=== PATIENT | male | born 1960 | race Caucasian/White ===

== ENCOUNTER 2017-07-05 20:28 | Emergency (ER) | payer MEDICARE ==
[~2017-07-05] VITALS: Ht 193 cm; Wt 106.6 kg
[~2017-07-05 20:28] MED LIST: 5-HTP100 MG PO; ACYCLOVIR SODI500 MG; ADULT LOW DOSE81 MG; ALPRAZOLAM1 MG PO; AMLODIPINE BESY10 MG PO; ASPIRIN EC81 MG PO; ATIVAN0.5 MG PO; CEFDINIR300 MG PO; CLINDAMYCIN HC150 MG PO; CLONAZEPAM0.5 MG PO; CLONAZEPAM1 MG PO; CLONIDINE HCL0.2 MG PO; CYCLOBENZAPRINE10 MG PO; DILAUDID4 MG; DILTIAZEM 24HR120 M1 PO; DOXYCYCLINE HY100 MG PO; DRONABINOL10 MG PO; FLEXERIL10 MG PO; FLONASE2 SPRAY; FUROSEMIDE20 MG PO; GUAIATUSSIN AC L5 ML PO; HAWTHORN BERRY500 MG PO; IBUPROFEN800 MG PO; IMDUR30 MG PO; LEVAQUIN500 MG PO; LEVOFLOXACIN500 MG PO; LORAZEPAM1 MG PO; MARINOL10 MG PO; MELATONIN10 M2 PO; METOPROLOL SUC200 MG PO; MSM1000 MG PO; MUCINEX DM ER1 EAC1 PO; MULTI VITAMIN1 EACH PO; NEURONTIN600 MG PO; NITROSTAT0.4 MG SL; NORVASC5 MG; OMEPRAZOLE20 MG; OSTEO BI-FLEX1 EAC2 PO; OXYCODONE HCL10 M1 PO; OXYCODONE HCL10 MG PO; OXYCODONE HCL5 MG PO; OXYCONTIN20 MG PO; OXYCONTIN30 MG PO; PERCOCET 5-3251 EACH PO; PERCOCET 7.5-31 EACH PO; PRAVACHOL40 MG PO; PRAVASTATIN SOD40 MG PO; PREDNISONE10 MG PO; PROMETHAZINE HC25 M1 PO; PROTONIX40 MG PO; PROVENTIL HFA6.7 GM INH; SULFAMETHOXAZO1 EAC1 PO; TESSALON PERLE100 MG PO; VALACYCLOVIR500 MG PO; VITAMIN D3400 UNIT PO; VITAMIN D5000 UNIT PO; ZITHROMAX250 MG PO; ZOFRAN ODT8 MG PO
[2017-07-05] MEDS ORDERED: KEFLEX500 MG PO (22:23)
[2017-07-05] MEDS ORDERED: BACTRIM DS TAB1 EACH PO (22:23)
== END 2017-07-05 22:40 | disposition home or self-care (01) ==
LOC: ED 20:28
DX: L03.115 Cellulitis of right lower limb (principal); I10 Essential (primary) hypertension; E78.00 Pure hypercholesterolemia, unspecified; Z86.73 Personal history of transient ischemic attack (TIA), and cerebral infarction without residual deficits; I25.10 Atherosclerotic heart disease of native coronary artery without angina pectoris; Z95.0 Presence of cardiac pacemaker; Z88.0 Allergy status to penicillin; Z88.5 Allergy status to narcotic agent; Z88.1 Allergy status to other antibiotic agents; Z98.890 Other specified postprocedural states; Z79.82 Long term (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; Z79.899 Other long term (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
CPT/HCPCS: 73630; 99283

== ENCOUNTER 2017-09-15 14:19 | Emergency (ER) | payer OTHER, MEDICARE ==
[~2017-09-15] VITALS: Ht 193 cm; Wt 106.6 kg
[~2017-09-15 14:19] MED LIST changes: +BACTRIM DS TAB1 EACH PO; +KEFLEX500 MG PO
[2017-09-15] MEDS ORDERED: NORCO 5-325 TA1 EACH PO (15:11)
== END 2017-09-15 15:47 | disposition home or self-care (01) ==
LOC: ED 14:19
DX: S20.212A Contusion of left front wall of thorax, initial encounter (principal); S80.12XA Contusion of left lower leg, initial encounter; I10 Essential (primary) hypertension; E78.00 Pure hypercholesterolemia, unspecified; I25.10 Atherosclerotic heart disease of native coronary artery without angina pectoris; Z86.73 Personal history of transient ischemic attack (TIA), and cerebral infarction without residual deficits; Z95.0 Presence of cardiac pacemaker; Z90.49 Acquired absence of other specified parts of digestive tract; Z88.0 Allergy status to penicillin; Z88.5 Allergy status to narcotic agent; Z88.8 Allergy status to other drugs, medicaments and biological substances; Z79.899 Other long term (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; Z79.82 Long term (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; V89.2XXA Person injured in unspecified motor-vehicle accident, traffic, initial encounter
CPT/HCPCS: 71101; 73590; 73630; 99283

== ENCOUNTER 2017-11-11 17:36 | Emergency (ER) | payer MEDICARE ==
[~2017-11-11] VITALS: Ht 193 cm; Wt 98.9 kg
[~2017-11-11 17:36] MED LIST changes: +NORCO 5-325 TA1 EACH PO
== END 2017-11-11 20:59 | disposition home or self-care (01) ==
LOC: ED 17:36
DX: R10.11 Right upper quadrant pain (principal); R19.7 Diarrhea, unspecified; I10 Essential (primary) hypertension; Z87.891 Personal history of nicotine dependence; Z88.0 Allergy status to penicillin; Z88.5 Allergy status to narcotic agent; Z88.1 Allergy status to other antibiotic agents; Z79.899 Other long term (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; Z79.82 Long term (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
CPT/HCPCS: 74177; 80053; 81001; 83690; 85025; 99284; J7030; Q9967

== ENCOUNTER 2017-11-22 07:45 | Emergency (ER) | payer MEDICARE ==
[~2017-11-22] VITALS: Ht 193 cm; Wt 98.9 kg
[2017-11-22] MEDS ORDERED: PROVENTIL HFA6.7 GM INH (11:57)
[2017-11-22] MEDS ORDERED: NAPROSYN500 MG PO (11:57)
--- NOTE | 2017-11-23 06:36 | EKG ---
[facility] [address] [facility] [place], [place] [address] Signed Atrial-paced rhythm with prolonged AV conduction Abnormal ECG When compared with ECG of 24-APR-2017 14:37, No significant change was found Confirmed by IKER CABEZAS MD ([id number]) on 11/23/2017 6:36:39 AM Electronically Signed By: IKER CABEZAS MD 11/23/17 0636 PATIENT NAME: PINA GAY SARAH Electrocardiogram DATE OF : 58 PHYSICIAN: IKER CABEZAS MD REPORT #: [id number] REPORT IS CONFIDENTIAL AND NOT TO BE RELEASED WITHOUT AUTHORIZATION
--- NOTE | 2017-11-23 06:37 | EKG ---
[facility] [address] [place], [place] [address] Signed Atrial-paced rhythm with prolonged AV conduction Abnormal ECG When compared with ECG of 22-NOV-2017 08:27, (Unconfirmed) No significant change was found Confirmed by IKER CABEZAS MD ([id number]) on 11/23/2017 6:36:58 AM Electronically Signed By: IKER CABEZAS MD 11/23/17 0637 PATIENT NAME: PINA GAY SARAH Electrocardiogram DATE OF : 58 PHYSICIAN: IKER CABEZAS MD REPORT #: [id number] REPORT IS CONFIDENTIAL AND NOT TO BE RELEASED WITHOUT AUTHORIZATION
== END 2017-11-22 12:45 | disposition home or self-care (01) ==
LOC: ED 07:45
DX: J20.9 Acute bronchitis, unspecified (principal); R07.9 Chest pain, unspecified; I10 Essential (primary) hypertension; Z87.891 Personal history of nicotine dependence; Z88.0 Allergy status to penicillin; Z88.5 Allergy status to narcotic agent; Z88.1 Allergy status to other antibiotic agents; Z88.8 Allergy status to other drugs, medicaments and biological substances; Z79.82 Long term (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; Z79.899 Other long term (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
CPT/HCPCS: 71045; 80053; 81001; 83690; 84484; 85025; 85379; 93005; 93010; 94640; 96374; 99284; J1885

== ENCOUNTER 2017-12-03 09:31 | Emergency (ER) | payer MEDICARE ==
[~2017-12-03] VITALS: Ht 193 cm; Wt 102.1 kg
[~2017-12-03 09:31] MED LIST changes: +NAPROSYN500 MG PO
[2017-12-03] MEDS ORDERED: ZITHROMAX250 MG PO (09:43)
[2017-12-03] MEDS ORDERED: NORVASC5 MG PO (09:47)
== END 2017-12-03 10:30 | disposition home or self-care (01) ==
LOC: ED 09:31
DX: E16.2 Hypoglycemia, unspecified (principal); I10 Essential (primary) hypertension; E78.00 Pure hypercholesterolemia, unspecified; Z95.0 Presence of cardiac pacemaker; Z98.890 Other specified postprocedural states; Z88.0 Allergy status to penicillin; Z88.5 Allergy status to narcotic agent; Z88.1 Allergy status to other antibiotic agents; Z88.8 Allergy status to other drugs, medicaments and biological substances; Z79.82 Long term (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; Z79.899 Other long term (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
CPT/HCPCS: 99283

== ENCOUNTER 2017-12-14 12:32 | Emergency (ER) | payer MEDICARE ==
[~2017-12-14] VITALS: Ht 193 cm; Wt 102.1 kg
[~2017-12-14 12:32] MED LIST changes: +NORVASC5 MG PO
== END 2017-12-14 13:02 | disposition home or self-care (01) ==
LOC: ED 12:32
DX: J06.9 Acute upper respiratory infection, unspecified (principal); R23.8 Other skin changes; I10 Essential (primary) hypertension; E78.00 Pure hypercholesterolemia, unspecified; Z95.1 Presence of aortocoronary bypass graft; Z90.49 Acquired absence of other specified parts of digestive tract; Z88.0 Allergy status to penicillin; Z88.5 Allergy status to narcotic agent; Z88.8 Allergy status to other drugs, medicaments and biological substances; Z88.1 Allergy status to other antibiotic agents; Z79.899 Other long term (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; Z79.82 Long term (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
CPT/HCPCS: 99282

== ENCOUNTER 2019-03-31 22:46 | Emergency (ER) | payer MEDICARE ==
[~2019-03-31] VITALS: Ht 193 cm; Wt 108.9 kg
--- OUTSIDE RECORDS SUMMARY | 2019-03-31 22:48 | XMS ---
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 Finish Remover Events No recent Security Events currently on file CRITERIA MET - Group Notification - [facility] - 3 Facilities in 90 Days - PDMP - [facility] - 2 Visits in 30 Days CARE PROVIDERS SARAH PEOPLES Internal Medicine Current PHONE: Unknown DR SARAH PEOPLES Primary Care Current PHONE: [phone] JAYLENE RIVAS Primary Care [facility] PHONE: Unknown Darren Wilkins - Case or Linoleum Installer Current [facility] PHONE: [phone] Joseline has no Care Guidelines for this patient. Rhea VISIT COUNT (12 MO.) 5 [address] JUDE [facility]gar TOTAL 10 NOTE: Visits indicate total known visits. ED/UCC VISIT TRACKING (12 MO.) 03/31/2019 22:46 [facility] [place] TYPE: Emergency COMPLAINT: - ABD PAIN 03/24/2019 19:20 [facility] [place] TYPE: Emergency DIAGNOSES: - CHEST PAIN - Other chest pain 01/02/2019 18:[address] [facility] [place]ba [place] TYPE: Emergency DIAGNOSES: - Chest pain, unspecified - chest pain 12/19/2018 18:13 [facility] [place] TYPE: Emergency DIAGNOSES: - Intestinal malabsorption, unspecified - Stomach pain; vomitting - Diarrhea, unspecified - Right upper quadrant pain 12/01/2018 22:07 [facility] [place] TYPE: Emergency DIAGNOSES: - NAUSEA;BLEEDING - Diarrhea, unspecified - Nausea [facility]2018 [facility] [place] [facility] DIAGNOSES: - cp - cp/ curently wearing a heart monitor - Chest Pain - Chest pain, unspecified 07/11/2018 13:53 [facility] [place] TYPE: Emergency COMPLAINT: - LOW BACK PAIN HEADACHE 06/21/2018 10:39 [facility] Sandie [place] TYPE: Emergency DIAGNOSES: - Chest pain, unspecified - chest pain 06/20/2018 [facility] [place] [facility] DIAGNOSES: - Chest pain, unspecified - Chest Pain - CP/SOB 04/06/2018 22:13 [facility] [place] TYPE: Emergency COMPLAINT: - LOWER LEG CONCERNS DIAGNOSES: - Localized edema - Personal history of other venous thrombosis and embolism INPATIENT VISIT TRACKING (12 MO.) No inpatient visits to display in this time frame [email or web address]
[2019-03-31] MEDS ORDERED: ATORVASTATIN CA20 MG PO (22:57)
[2019-03-31] MEDS ORDERED: ONDANSETRON HCL4 MG PO (22:58)
[2019-03-31] MEDS ORDERED: DICYCLOMINE HCL20 MG PO (22:58)
[2019-03-31] MEDS ORDERED: DIPHENOXYLATE-1 EACH PO (22:58)
[2019-04-01] MEDS ORDERED: PERCOCET 5-3251 EACH PO (01:28)
[2019-04-01] MEDS ORDERED: FLOMAX0.4 MG PO (01:29)
== END 2019-04-01 02:14 | disposition home or self-care (01) ==
LOC: ED 22:46
DX: N13.2 Hydronephrosis with renal and ureteral calculous obstruction (principal); I10 Essential (primary) hypertension; E78.00 Pure hypercholesterolemia, unspecified; Z87.891 Personal history of nicotine dependence; Z95.0 Presence of cardiac pacemaker; Z90.49 Acquired absence of other specified parts of digestive tract; Z88.0 Allergy status to penicillin; Z88.5 Allergy status to narcotic agent; Z88.6 Allergy status to analgesic agent; Z88.8 Allergy status to other drugs, medicaments and biological substances; Z79.82 Long term (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; Z79.899 Other long term (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
CPT/HCPCS: 74176; 80053; 81001; 83690; 85025; 96374; 96375; 96376; 99284-25; J1170; J1885; J2405

== ENCOUNTER 2019-07-21 08:17 | Emergency (ER) | payer MEDICARE ==
[~2019-07-21] VITALS: Ht 193 cm; Wt 101.6 kg
[~2019-07-21 08:17] MED LIST changes: +ATORVASTATIN CA20 MG PO; +DICYCLOMINE HCL20 MG PO; +DILAUDID2 MG PO; +DIPHENOXYLATE-1 EACH PO; +FLOMAX0.4 MG PO; +LIPITOR40 MG PO; +ONDANSETRON HCL4 MG PO; +TOPROL XL100 MG PO
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
== END 2019-07-21 09:40 | disposition home or self-care (01) ==
LOC: ED 08:17
DX: S43.401A Unspecified sprain of right shoulder joint, initial encounter (principal); I10 Essential (primary) hypertension; Z87.891 Personal history of nicotine dependence; Z95.0 Presence of cardiac pacemaker; Z88.0 Allergy status to penicillin; Z88.1 Allergy status to other antibiotic agents; Z88.5 Allergy status to narcotic agent; Z88.6 Allergy status to analgesic agent; Z79.82 Long term (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; Z79.899 Other long term (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; Y04.0XXA Assault by unarmed brawl or fight, initial encounter
CPT/HCPCS: 73030; 99283

== ENCOUNTER 2019-09-04 15:20 | Emergency (ER) | payer MEDICARE ==
[~2019-09-04] VITALS: Ht 193 cm; Wt 99.8 kg
--- OUTSIDE RECORDS SUMMARY | ~2019-09-04 | XMS | Clinical Summary ---
Demographics + + + | Address | [address] | | | [place] [address] | + + + | Home Phone [...] Team Providers + +------+ + | Care Label Machine Operator Name | Role | Phone | + +------+ + | Kikr French MD | PCP | Unavailable | + +------+ + Allergies + + [...] | tablet | Daily. | | | 8/20 | | e | | | | | | 12 | | | + + + +---------+------+------+-------+ | Ascorbic Acid | Take 1,000 mg by | | 0 | 04/1 | | Activ | | (VITAMIN C) 1000 MG | mouth Daily. | | | 8/20 | | e | | tablet | | | | 12 | | | + + + +---------+------+------+-------+ | Kilmichael-3 Fatty | CAPS, one capsule by | | 0 | 04/1 | | Activ | | Acids (SALMON | mouth daily twice | | | 8/20 | | e | | OIL-1000 PO) | daily | | | 12 | | | + + + +---------+------+------+-------+ | diphenhydrAMINE | Take 25 mg by mouth | | 0 | 04/1 | | Activ | | (BENADRYL) 25 MG | as needed. | | | 8/20 | | e | | capsule | | | | 12 | | | + + + +---------+------+------+-------+ | UNCODED MEDICATION | Diagnosis: | 1 [...] | | + + + +---------+------+------+-------+ | ONE TOUCH DELICA | Check glucose as | 100 | 3 | 09/2 | | Activ | | LANCETS | needed for | each | | 6/20 | | e | | MISCIndications: | hypoglycemia | | | 13 | | | | Hypoglycemia | | | | | | | + + + +---------+------+------+-------+ | Misc Natural | Take by mouth. | | 0 | | | Activ | | Products (OSTEO | Takes 2 tablets in | | | | | e | | BI-FLEX/5-LOXIN | the morning and 2 | | | | | | | ADVANCED PO) | tablets at night | | | | | | + + + +---------+------+------+-------+ | rOPINIrole | Take 1 tablet by | | 0 | 07/0 | | Activ | | (REQUIP) 1 mg tablet | mouth nightly. | | | 3/20 | | e | | | | | | 15 | | | + + + +---------+------+------+-------+ | Multiple | Take 1 tablet by | | 0 | | | Activ | | Vitamins-Minerals | mouth Daily. | | | | | e | | (CENTRUM SILVER PO) | | | | | | | + + + +---------+------+------+-------+ | UNABLE TO FIND | Take 1 tablet by | | 0 | | | Activ | | | mouth Daily. | | | | | e | | | MARINE-D3 | | | | | | + + + +---------+------+------+-------+ | | Take 1 tablet by | | 0 | | | Activ | | diphenoxylate-atropi | mouth 4 times daily | | | | | e | | ne (LOMOTIL) | as needed for | | | | | | | 2.5-0.025 mg per | Diarrhea. | | | | | | | tablet | | | | | | | + + + +---------+------+------+-------+ | dicyclomine | Take 1 tablet by | 30 | 1 | 02/0 | 02/0 | Activ | | (BENTYL) 20 MG | mouth 3 times daily | tablet | | 4/20 | 4/20 | e | | tablet | as needed. Before | | | 19 | 20 | | | | meals | | | | | | + + + +---------+------+------+-------+ | ondansetron | Take 4 mg by mouth | | 0 | 01/1 | | Activ | | (ZOFRAN ODT) 4 mg | every 8 hours as | | | 1/20 | | e | | disintegrating | needed for Nausea. | | | 19 | | | | tablet | | | | | | | + + + +---------+------+------+-------+ | Glucose Blood | Test up to 1 times a | | 0 | 03/0 | | Activ | | (BLOOD GLUCOSE TEST | day as needed ( One | | | /20 | | e | | STRIPS) STRP | touch ) | | | 18 | | | + + + +---------+------+------+-------+ | amLODIPine | Take 1 tablet by | 30 | 11 | 04/0 | | Activ | | (NORVASC) 5 mg | mouth Daily. | tablet | | 2/20 | | e | | tablet | | | | 19 | | | + + + +---------+------+------+-------+ | HYDROmorphone | Take 1 tablet by | | 0 | 07/ | | Activ | | (DILAUDID) 4 MG | mouth every 4 hours. | | | /20 | | e | | tablet | | | | 19 | | | + + + +---------+------+------+-------+ | atorvaSTATin | Take 1 tablet by | 30 | 5 | / | | Activ | | (LIPITOR) 40 mg | mouth nightly. | tablet | | /20 | | e | | tabletIndications: | | | | 19 | | | | Coronary artery | | | | | | | | disease involving | | | | | | | | holy cross coronary | | | | | | | | artery of holy cross | | | | | | | | heart without angina | | | | | | | | pectoris, | | | | | | | | Hyperlipidemia, | | | | | | | | mixed | | | | | | | + + + +---------+------+------+-------+ | metoprolol | Take 1.5 tablets by | 45 | 5 | 07/1 | | Activ | | succinate | mouth Daily. | tablet | | 6/20 | | e | | (TOPROL-XL) 100 mg | | | | 19 | | | | ER tablet | | | | | | | + + + +---------+------+------+-------+ | aspirin 81 MG EC | Take 81 mg by mouth | | 0 | | | Activ | | tablet | Daily. | | | | | e | + + + +---------+------+------+-------+ | hyoscyamine | Place 1 tablet under | 60 | 1 | 09/0 | | Activ | | (LEVSIN) 0.125 mg SL | the tongue every 4 | tablet | | 9/20 | | e | | tablet | hours as needed for | | | 19 | | | | | Cramping, Diarrhea | | | | | | | | or GI Spasms. | | | | | | + + + +---------+------+------+-------+ | nitroglycerin | PLACE ONE TABLET | [...] | + + + +---------+------+------+-------+ | valACYclovir | TAKE ONE TABLET BY | 180 | 0 | 10/0 | | Activ | | (VALTREX) 1 g tablet | MOUTH TWICE A DAY | tablet | | 9/20 | | e | | | | | | 19 | | | + + + +---------+------+------+-------+ | clonazePAM | Take 1 tablet by | 90 | 0 | 10/1 | | Activ | | (KLONOPIN) 1 mg | mouth 3 times daily | tablet | | 0/20 | | e | | tablet | as needed for | | | 19 | | | | | Anxiety. | | | | | | + + + +---------+------+------+-------+ | NITROSTAT 0.4 MG | place 1 tablet under | 100 | 3 | 11/2 | 10/0 | Disco | | SL tablet | the tongue if | tablet | | 2/20 | 9/20 | ntinu | | | needed for chest | | | 16 | 19 | ed | | | pain may repeat | | | | | | | | every 5 minutes UP | | | | | | | | TO 3 DOSES; IF NO | | | | | | | | RELIEF AFTER 3RD | | | | | | | | DOSE, CALL 911 | | | | | | + + + +---------+------+------+-------+ | valACYclovir | Take 1,000 mg by | | 1 | 01/0 | 10/0 | Disco | | (VALTREX) 1 g tablet | mouth 2 times daily. | | | 07/11 | 20 | ntinu | | | | | | 18 | 19 | ed | + + + +---------+------+------+-------+ | sertraline | Take 100 mg by mouth | | 0 | 10/0 | 10/0 | Expir | | (ZOLOFT) 50 mg | Daily. | | | 20 | 20 | ed | | tablet | | | | 18 | 19 | | + + + +---------+------+------+-------+ | clonazePAM | Take 1 tablet by | 12 | 0 | 07/1 | 10/1 | Disco | | (KLONOPIN) 1 mg | mouth 3 times daily | tablet | | 01/11 | 020 | ntinu | | tablet | as needed for | | | 19 | 19 | ed | | | Anxiety. | | | | | | + + + +---------+------+------+-------+ Active Problems + + + | Problem | Noted Date | + + + | Left ureteral calculus | 04/10/2019 | + + + | Irritable bowel syndrome | 01/17/2019 | + + + | Obesity | 01/17/2019 | + + + | Abnormal serum level of lipase | 12/22/2018 | + + + | Cannabis abuse | 12/14/2018 | + + + | Neuralgia | 11/25/2018 | + + + | Beta Blockers - Daily Use | 12/24/2017 | + + + | Depression with anxiety | 12/24/2017 | + + + | H/O Lumbar Fusion - "6 levels" per pt | 12/24/2017 | + + + + + | Overview: Lower back injury ([facility] 1980 1984 | + + + + + | Diarrhea | 12/22/2017 | + + + | Weight loss | 12/22/2017 | + + + | Anxiety about health | 03/15/2017 | + + + | Pacemaker reprogramming/check DO NOT DELETE | 09/19/2015 | + + + | Blood glucose elevated | 11/26/2014 | + + + | Cannabis abuse, daily use | 07/25/2014 | + + + | Decreased potassium in the blood | 02/27/2014 | + + + | Coronary artery disease involving holy cross coronary artery of | 12/21/2013 | | holy cross heart without angina pectoris | | + [...] a TR | | hemostatic band, by Sydni Singletary, MDStress test on 07/21/2018 | | shows regadenoson EKG is negative, normal Regadenoson sestamibi | | myocardial perfusion study, normal left ventricular size, wall | | thickness and motion, preserved left ventricular systolic | | function, LVEF by gated SPECT is 64%, by Sydni Singletary | | .Echocardiogram 06/16/16, shows normal left ventricular size, | [...] with a TR hemostatic band, by Sydni | | MD Gemini. Normal exercise sestamibi [...] attenuation cannot | | completely be ruled out.[facility] 12/25/13, shows non critical coronary | | [...] | | CT Angiogram chest w/constrast 05/26/14 [facility] | + + + + + | [...] [facility] at [facility] on 01/30/2013. Patient had spontaneous PVCs from [...] back in 3 days to | | [place] for an attempt of ablation under general [...] update | + + + + + | CENTRAL SLEEP APNEA CONDS CLASSIFIED ELSEWHERE | 12/15/2010 | + + + + + | Overview: ICD-10 Record update | + + +---------+ + | Syncope | 10/09/2010 | +---------+ + + + | Overview: Episode of presyncope 05/28/10 | + + + + + | ORGANIC INSOMNIA UNSPECIFIED | 10/09/2010 | + + + + + | Overview: ICD-10 Record update | + + + + + | [...] IMPLANTED GENERATOR | | Medtronic DDD [id number] 06/14/09 RV LEAD Medtronic Active | | Bipolar CapSureFix 4076 [id number] 06/14/09 A LEAD Medtronic | | Active Bipolar CapSurFix 4076 [id number] 06/14/09 | + + + +---+ | Hyperlipidemia, mixed | | + +---+ | Bipolar disorder | | + +---+ | Mixed anxiety depressive disorder | | + +---+ + + | Last Assessment & Plan: Has history of anxiety/depression, | | not on antidepressive currently. May benefit from SSRI. | + + + +---+ | Smoker | | + +---+ | Hypertension | | + +---+ + + | Last Assessment & Plan: On amlodipine, clonidine, and | | metoprolol. Continue home meds. | + + + +---+ | NONDEPENDENT OPIOID ABUSE IN REMISSION | | + +---+ | Fibromyalgia | | + +---+ | Low back pain | | + +---+ | CHRONIC PAIN SYNDROME | | + +---+ | Ulcerative colitis | | + +---+ | Sinoatrial node dysfunction (HCC) with symptomatic bradycardia | | + +---+ + + | Overview: Echocardiogram on 05/25/09 revealed a normal left | | ventricular size and systolic function, LVEF 65 to 70%.Kera[employer]STtronic | | DDD permanent pacemaker implantation on [...] and | | PVCs were noted, by Sydni Singletary MD | + + + +---+ [...] Date | + + + + | Dizziness, nonspecific | 03/19/20 | | | | 15 | 5 | + + + + | Chest pain. No ACS. | | | | | | 8 | + + + + + + | Overview: Echocardiogram 03/19/15, [...] | Heart Cath, 02/29/2012, LVEF is 65%, [facility] Myocardial Gated Stress Test, 05/25/2009, EF 53 | | % during rest and 52% during stress. [facility], | | [place], [place].Persantine Sestamibi Stress Test, 06/14/2008, LVEF is | | 60%, [facility] 12/25/13, shows noncritical | | coronary artery [...] Plan: Nonobstructive CAD noted | | on [facility] from 2013, no EKG changes, and negative [...] | +--------+ + + + + | 09/04/ | Telephone | Gastroenterology | Emmanuel Daniel MD | Other | | 2018 | | | | | +--------+ + + + + | 08/31/ | Refill | Family Medicine | Kirk French | Medication Refill | | 2018 | | Shanique Guidry MD | | +--------+ + + + + | 08/30/ | Refill | Family Medicine | Kirk French | Medication Refill | | 2018 | | Shanique Guidry MD | | +--------+ + + + + | 07/31/ | Telephone | Cardiology | Shanique Vega | 2018 | | | [place] | | +--------+ + + + + | 07/31/ | Telephone | Gastroenterology | Emmanuel Daniel MD | Medication Refill | 2018 | | | | | +--------+ + + + + | 07/27/ | Telephone | Gastroenterology | Emmanuel Daniel MD | Medication | | 2018 | | | | Recommendations | +--------+ + + + + | 07/13/ | Telephone | Family Medicine | Kirk French | Referral Question | | 2018 | | | MD Brea | | +--------+ + + + + | 06/22/ | Telephone | Gastroenterology | Emmanuel Daniel MD | Lab Order | | 2018 | | | | | +--------+ + + + + | 06/19/ | Orders Only | | Fabrice Hylton, | Abnormal weight | | 2018 | | | MD | loss; Anxiety | | | | | | disorder; Chronic | | | | | | pain syndrome; | | | | | | Obesity; Neuralgia | | | | | | and neuritis, | | | | | | unspecified; | | | | | | Cannabis abuse, | | | | | | uncomplicated; Major | | | | | | depressive | | | | | | disorder, single | | | | | | episode | +--------+ + + + + | 06/06/ | Office | Cardiology | Silvia, | Essential | | 2019 | Visit | | [place] | hypertension | | | | | | (Primary Dx); | | | | | | Sinoatrial [...] involving | | | | | | holy cross coronary | | | | | | artery of holy cross | | | | | | heart [...] | | | | | mixed | +--------+ + + + + | 06/06/ | Telephone | Cardiology | Silvia, | Other (Cardiac | | 2018 | | | [place] | Clearance) | +--------+ + + + + from Last 3 Months Immunizations + + + + | Name | Dates Previously Given | Next Due | + + + [...] + | Cancer | Father | | colon,prostate | + + +------+ + | Heart [...] + + | Mother | | | [place] | | | | (Age | | [...] + +---------+ + | Alcohol Use | Drinks/We | oz/Week | Comments | | | ek | | | + + +---------+ + | Not Currently | 7 Shots | 4.2 | Pt states he started drinking again - Hard | | | of | | alchol | | | liquor | | | + + +---------+ + [...] Filed Vital Signs + + + + | Vital Sign | Reading | Time Taken | + + + + | Blood Pressure | 132/90 | 06/06/2019 1425 PDT | + + + + | Pulse | 80 | 06/06/2019 1425 PDT | + + + + | Temperature | 37.4 C (99.3 F) | 06/02/2019 1840 PDT | + + + + | Respiratory Rate | 16 | 06/06/20191424 PDT | + + + + | Oxygen Saturation | 98% | 06/02/20192020 PDT | + + + + | Inhaled Oxygen | - | - | | Concentration | | | + + + + | Weight | 102.6 kg (226 lb 3.1 | 06/06/20191424 PDT | | | oz) | | + + + + | Height | 193 cm (6' 4") | 06/06/20191424 PDT | + + + + | Body Mass Index | 27.53 | 06/06/2019 1425 PDT | + + + + Plan of Treatment +--------+---------+ + + + | Date | Type | Specialty | Care Team | Description | +--------+---------+ + + + | 11/09/ | Office | Cardiology | Silvia, | | | 2018 | Visit | | [place] [address] | | | | | | [place], | | | | | | [place] [address] | | | | | | [phone] | | | | | | | | +--------+---------+ + + + + + + + + | Health Maintenance | Due Date | Last Done | Comments | + + + + + | Hepatitis C | | | | | Screening | 9 | | | + + + + + | Vaccine: | | | | | Pneumococcal 19-64 | 8 | | | | (PPSV23 only) Medium | | | | | Risk (1 of 1 - | | | | | PPSV23) | | | | + + [...] | | 07/23/2016, 06/24/2015, | | | (#1) | 9 | 09/10/2009 | | + + + + + | Vaccine: | | 08/17/2011, 05/16/2002 | | | Dtap/Tdap/Td (2 - | 1 | | | | Td) | | | | + + + + + | Colorectal Cancer | | 01/05/2019, 12/24/2017, | | | Screening | 9 | [...] Left: | COOK | | 09/27/ | [id number] | | - [id number]: | | Ureter | [employer] | | 2020 | / | | Qty: 1 on 04/13/2019 by | | | - [place] | | | /[id number] | | Matthew Uriarte MD | | | | | | 56 | + +-------+--------+ +--------+--------+--------+ Procedures + +--------+ + + + | Procedure Name | Priori | Date/Time | Associated Diagnosis | Comments | | | ty | | | | + +--------+ + + + | ECG 12 LEAD | Routin | 06/06/2019 | Essential | Results for this | | | e | 14:51 PDT | hypertension | procedure are in the | | | | | | results section. | + +--------+ + + + from Last 3 Months Results ECG 12 lead (06/06/2019 14:51 PDT) + + + + + + [...] by | | | | | | GEMINI WINKLER, SYDNI | | | | | | ([id number]) on 06/06/2019 | | | | | [...] | | | + +---------+ + + from Last 3 Months Insurance [...] +--------+ +---------+--------+ | MEDICARE | MEDICA | [id number] | 01/21/20 | [phone] | | Medica | | | RE | | 01-Pre | 5 | | re | | | PART A | | sent | | | | | | AND B | | | | | | + +--------+ +--------+ +---------+--------+ | AARP | AARP | [id number] | | [phone] | | Indemn | [...] Person | Self | [birth year] | [address] | | Kirk | rcisto/Per | | 1959 | [phone] | [place] | | | [place] | | | 6 (Home) | [address] | + +--------+ +--------+ + + | Moe Sanchez | Third | Self | [birth year] | | [address] | | Kirk | [place] | | 1959 | [phone] | [place] | | | [place] | | | 3 (Home) | [address] | | | ity | | | | | + +--------+ +--------+ + + Advance Directives Patient has advance care planning documents, and code status on file. For more information, please contact:[facility] [place] [address] + + + + + | Code Status | Date | Date | Comments | | | Activated | Inactivated | | + + + + + | Full Code | 04/13/2019 | 04/13/2019 | | | | 10:47 | 18:22 | | + + + + + + + + +---+ | | | | | + + + +---+ | Full Code | 03/18/2015 | 03/20/2015 | | | | 21:37 | 15:36 | | + + + +---+
--- OUTSIDE RECORDS SUMMARY | ~2019-09-04 | XMS | Encounter Summary ---
Demographics + + + | Address | [address] | | | [place] [address] | + + + | Home Phone | | + + + | Preferred Language | Unknown | + + + | Marital Status | | + + + | Zoroastrianism Affiliation | 1013 | + + + | Race | Unknown | + + + | Ethnic Group | Unknown | + + + Author + + + | Author | [email or web address] (Historical as of | | | 07-08-19) | + + + | Organization | [facility] (Historical as of | | | 07-08-19) [...] Team Providers + +------+ + | Care Veterans Services Specialist Name | Role | Phone | + +------+ + | Kirk French MD | PCP | | + +------+ + Reason for Visit +--------+ + | Reason | Comments | +--------+ + | Other | [facility] visit notes | +--------+ + Encounter Details +--------+ + + + + | Date | Type | Department | Care Team | Description | +--------+ + + + + | 06/23/ | Documentati | [facility] | Geri Bear, | Other ([facility] | | 2019 | on Only | Primary Care [address] | MANGLE PRESS CATCHER | visit notes) | | | | [address] | | | | | | [place], [place] | | | | | | [address] | | | | | | [phone] | | | +--------+ + + + [...]
--- OUTSIDE RECORDS SUMMARY | ~2019-09-04 | XMS | Clinical Summary ---
Demographics + + + | Address | [address] | | | [place] [address] | + + + | Home Phone | | + + + | Preferred Language | Unknown | + + + | Marital Status | | + + + | Druze Affiliation | 1013 | + + + | Race | Unknown | + + + | Ethnic Group | Unknown | + + + Author + + + | Author | [facility] (Historical as of | | | 07-08-19) | + + + | Organization | [facility] (Historical as of | | | 07-08-19) [...] Team Providers + +------+ + | Care Men'S Leather Dress Belt Maker Name | Role | Phone | [...] | | 17 | | | | DIDIRE (obstructive | | | | | | [...] | | Geri Bear, | | | 2019 | | | MATERIAL DAMAGE ADJUSTER | | +--------+ + + + + | 06/23/ | Documentati | | Geri Bear, | Britt ([facility] | | 2018 | on Only | | MATERIAL DAMAGE ADJUSTER | visit notes) | +--------+ + + + + | 06/12/ | Documentati | | Geri Bear, | Other ([place] | | 2018 | on Only | | MATERIAL DAMAGE ADJUSTER | hillary [place]) | +--------+ + + + + | 06/08/ | Telephone | | Geri Bear, | | | 2019 | | | MATERIAL DAMAGE ADJUSTER | | +--------+ + + + + | 06/06/ | Refill | | Geri Bear, | | | 2019 | | | MATERIAL DAMAGE ADJUSTER | | +--------+ + + + + [...] + | AUTO INSURANCE | AUTO | [id number] | | | | | | INSURA | | | | | | | NCE | | | | | | | GENERI | | | | | | | C | | | | | + +--------+ +------+-------+ + | AUTO INSURANCE | AUTO | [id number] | | | | | | INSURA | [id number] | | | | | | NCE | | | | | | | GENERI | | | | | | | C | | | | | + +--------+ +------+-------+ + | MEDICARE | MEDICA | [id number] | | | [address] | | | RE | | | | [place] [address] | | | IP-OP | | | | | + +--------+ +------+-------+ + | [facility] | [place] | [id number] | | | | | | | [...] | Self | [birth year] | Home: | [facility] [address] | | | al/Fam | | 1959 | +- | [place] | | | [place] | | | [phone] | [address] | + +--------+ +--------+ + + | AMILCAR GAY | Third | Self | [birth year] | Home: | [address] | | | [employer] | | 1959 | - | [place] | | | [place] | | | [phone] | [phone] | | | ity | | | | | + +--------+ +--------+ + + | AMILCAR GAY W | Third | Self | [birth year] | Home: | [address] | | | [employer] | | 1960 | [phone] | [place] | | | [place] | | | [phone] | [phone] | | | itvarsha | | | | | + +--------+ +--------+ + +
--- OUTSIDE RECORDS SUMMARY | ~2019-09-04 | XMS | Encounter Summary ---
Demographics + + + | Address | [address] | | | [place] [address] | + + + | Home Phone | | + + + | Preferred Language | Unknown | + + + | Marital Status | | + + + | Anabaptism Affiliation | 1013 | + + + | Race | Unknown | + + + | Ethnic Group | Unknown | + + + Author + + + | Author | [employer] [facility] (Historical as of | | | 07-08-19) | + + + | Organization | [facility] (Historical as of | | | 07-08-19) [...] Team Providers + +------+ + | Care Drier Attendant Name | Role | Phone | [...] + + | 06/12/ | Documentati | [facility] | Geri Bear, | Other ([place] | | 2019 | on Only | Primary Care [address] | DRAMATIC AGENT | hillary thornton) | | | | [address] | | | | | | [place], [place] | | | | | | [address] | | | | | | [phone] | | | +--------+ + + + [...]
--- OUTSIDE RECORDS SUMMARY | ~2019-09-04 | XMS | Encounter Summary ---
Demographics + + + | Address | [address] | | | [place] [address] | + + + | Home Phone [...] Team Providers + +------+ + | Care Pharmacist'S Aide Name | Role | Phone | + +------+ + | Kirk French MD | PCP | Unavailable | + +------+ + Encounter Details +--------+ + + + + | Date | Type | Department | Care Team | Description | +--------+ + + + + | 06/19/ | Orders Only | [facility] | Fabrice Hylton, | Abnormal weight | | 2019 | | SYSTEM GENERIC OP | [address] | loss; Anxiety | | | | CONVERSION [address] [place], [place] | disorder; Chronic | | | | [address] [place], [place] | [address] | pain syndrome; | | | | [address] | | Obesity; Neuralgia | | | | [phone] | | and neuritis, | | | [...] | | | | | | [place] [address] | | | | | | [phone] | | | | | | | | +--------+---------+ + + + + +--------+ + + | Name | Priori | Associated Diagnoses | Order Schedule | | | ty | | | + +--------+ + + | External Lab: Occult Blood, | Routin | Abnormal weight | Expected: | | Screening | e | loss Anxiety | 11/25/2018, Expires: | | | | disorder Chronic | 11/25/2019 | | | | pain syndrome | | | | | Obesity Neuralgia | | | | | and neuritis, | | | | | unspecified | | | | | Cannabis abuse, | | | | | uncomplicated Major | | | | | depressive | | | | | disorder, single | | | | | episode | | + +--------+ + + documented as of [...]
--- OUTSIDE RECORDS SUMMARY | ~2019-09-04 | XMS | Encounter Summary ---
Demographics + + + | Address | [address] | | | [place] [address] | + + + | Home Phone [...] Team Providers + +------+ + | Care Stevedore Hold Name | Role | Phone | + [...] + + | 06/06/ | Office | [facility] | [place], | Essential | | 2019 | Visit | CARDIOLOGY [address] | [address] [address] | hypertension | | | | [place], | [place], | (Primary Dx); | | | | [place] [address] | [place] [address] | Sinoatrial node | | | | [phone] | [phone] | dysfunction (HCC) | | | | | | with symptomatic | | | | | | bradycardia; | | | | | | Symptomatic PVCs; | | | | | | Tachycardia; | | | | | | Coronary artery | | | | | | disease involving | | | | | | [place] coronary | | | | | | artery of [place] | | | | | | heart [...] + + | Pulse | 80 | 06/06/20191424 PDT | + + + + | Temperature | - | - | + + + + | Respiratory Rate | 16 | 06/06/20191424 PDT | + + + + | Oxygen Saturation | - | - | + + + + | Inhaled Oxygen | - | - | | Concentration | | | + + + + | Weight | 102.6 kg (226 lb 3.1 | 06/06/20191424 PDT | | | oz) | | + + + + | Height | 193 cm (6' 4") | 06/06/20195 PDT | + + + + | Body Mass Index | 27.53 | 06/06/20195 PDT | + + + + documented in this [...] encounter Patient Instructions Patient Instructions Julia Allen, Protection Officer - 06/06/2019 14:15 PDT1. Take a Nit roglycerin if you start having chest pain 2. Increase your atorvastatin to 40 mg once daily 3. Increase your Metoprolol to 150 mg once daily 4. He will follow up in 6-8 weeks, or sooner with concerns. documented in this encounter Progress Notes Janeen Vega ARNP - 06/06/2019 1415 PDTFormatting of this note might be different fr om the original. PATIENT NAME: Moe Sanchez : 1960: AGE: 59 y.o. PRIMARY CARE: Kirk French MD OUTPATIENT FOLLOW UP VISIT Date of Service: 06/06/2019 HISTORY OF PRESENT ILLNESS: Moe Sanchez is a 59 y.o. 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 He is [...] was seen in the emergency department at [facility] in [place] due to chest pain, no medication changes at that time. On 06/02/2019 [facility], irregular heart bet [...] care Coronary artery disease involving [place] coronary artery of [place] heart without angina pectoris Cannabis abuse, daily [...] 3RD DOSE, CALL 911 100 tablet 3 [place]-3 Fatty Acids (SALMON OIL-1000 PO) CAPS, one capsule by mouth daily twice daily ondansetron (ZOFRAN ODT) 4 mg disintegrating tablet Take 4 mg by mouth every 8 hours as needed for Nausea. ONE TOUCH DELICA LANCETS [facility] [...] during visit today primarily from [facility]: LIPID Lab Results Component Value Date [...] BNP 48 06/02/2019 I reviewed records from [facility] for emergency department visit o n 06/02/2019 which is summarized in the HPI. RESULTS- I reviewed reports from [facility]: Ct Abdomen Pelvis W Contrast Result [...] ASSESSMENT: 1. Non-critical Coronary artery disease involving [place] coronary artery of [place] heart [facility] angina pectoris: A.Normal exercise sestamibi stress [...] hemostasis with a TR hemostatic band, by MD Shawn Newby. Today, 06/06/2019, he is symptomatic, He has [...] by Dr Juan Diego Gambino at [facility] on 01/30/2013.Patient had spontaneous PVC'sfr om [...] to go back in 3 days to [place] for an attempt of ablation under general [...] a normal stable device function. Estimated remaining bat taylor longevity is 3.5 years. D. Device [...] visit, or sooner with concerns. Julia Clemente, Protection Officer am acting as a scribe on behalf of, and in the presenc e of PARISA Lomas. - Juila Allen Protection Officer 06/06/2019 15:10 Janeen Clemente ARNP, personally performed the services described in this documentati on, as scribed in my presence and it is both accurate and complete. -PARISA Lomas 06/06/2019 Portions of this chart may have been created with [employer] voice recognition software. Occasi onal wrong-word or [...] | | | | | | [place], | | | | | | [place] [address] | | | | | | [phone] | | | | | | | [...] this encounter Results ECG 12 lead (06/06/2019 14:51 PDT) [...] MD | | | | | | ([id number]) on 06/06/2019 | | | | | [...] | Coronary artery disease involving [place] coronary artery of [place] heart without | | angina pectoris | + + | Syncope, unspecified syncope type | + + | Ascending thoracic aortic aneurysm (HCC) Thoracic aneurysm without mention of rupture | + + | Hyperlipidemia, mixed Mixed hyperlipidemia | + + documented in this encounter
--- OUTSIDE RECORDS SUMMARY | ~2019-09-04 | XMS | Encounter Summary ---
Demographics + + + | Address | [address] | | | [place] [address] | + + + | Home Phone [...] Team Providers + +------+ + | Care Phlebotomist Lab Assistant Name | Role | Phone [...] + + | 08/31/ | Refill | [facility] | Manolo Kirk | Medication Refill | | 2019 | | [facility] | MD [address] | | | | | PRIMARY CARE [address] | [address] | | | | | [address] | [place] [address] | | | | | [place], [place] | [phone] | | | | | [address] | | | | | | [phone] | | | +--------+--------+ + + + [...] | | | | | | [place] [address] | | | | | | [phone] | | | | | | | | +--------+---------+ + + + documented as of this encounter Visit Diagnoses Not on filedocumented in this encounter"
--- OUTSIDE RECORDS SUMMARY | ~2019-09-04 | XMS | Encounter Summary ---
Demographics + + + | Address | [address] | | | [place] [address] | + + + | Home Phone [...] Team Providers + +------+ + | Care Injection Molding Machine Operator Name | Role | [...] | | CARDIOLOGY [address] | Janeen, IMMIGRATION LAW SPECIALIST [address] | Clearance) | | | | [place], | [place], | | | | | [place] [address] | [place] [address] | | | | | [phone] | [phone] | | | | | | | [...] | | | | | | [place] [address] | | | | | | [phone] | | | | | | | | +--------+---------+ + + + documented as of this encounter Visit Diagnoses Not on filedocumented in this encounter"
--- OUTSIDE RECORDS SUMMARY | ~2019-09-04 | XMS | Encounter Summary ---
Demographics + + + | Address | [address] [place] [address] | | | [place] [address] | + + + | Home Phone [...] | | | | | , [place] [address] | | + + + + + Care Team Providers + +------+ + | Care Queen'S Counsel Name | Role | Phone | + [...] | | 2019 | | Center at [facility] [address] | Gastroenterology | Gastroenterology | | | | [address] | | | | | | Mailcode: [place] | | | | | | [facility] and | | | | | | [facility], [address] | | | | | | [place], [place] | | | | | | [address] | | | | | | [phone] | | | +--------+ + + + [...] | | 2019 | Visit | | [address] | | | | | | [place], [place] | | | | | | [address] | | | | | | [phone] | | | | | | | | +--------+---------+ + + + documented as of this encounter Visit Diagnoses Not on filedocumented in this encounter"
--- OUTSIDE RECORDS SUMMARY | ~2019-09-04 | XMS | Encounter Summary ---
Demographics + + + | Address | [address] [place] [address] | | | [place] [address] | + + + | Home Phone [...] | | | | | , [place] [address] | | + + + + + Care Team Providers + +------+ + | Care Product/Device Technologist Name | Role | Phone | [...] Chest pain | Farooq Almaguer, | [address] | | | | | Bradycardia | DO [address] | [place] | | | | | Procedures | Yao Booth | Mailcode: | | | | | | Pal[place] Desai | [address] [place] | | | | | TRANSTHORACI | [facility] [place] | for Health | | | | | C | [address] | and Healing, | | | | | ECHOCARDIOGR | Phone: | [address] | | | | | AM, ADULT | [phone] | [place], [place] | | | | | | Fax: | [address] | | | | | | [phone] | Phone: | | | | | | | [phone] | +--------+--------+ + + + + Encounter Details +--------+ + + + + | Date | Type | Department | Care Team | Description | +--------+ + + + + | 02/03/ | Hospital | Cardiac | | | | 2010 | Encounter | Non-Invasive Testing | | | | | | at [facility] [address] | | | | | | [address] Mailcode: | | | | | | [address] | | | | | | Health and Healing, | | | | | | [address] | | | | | | [place], [place] | | | | | | [address] | | | | | | [phone] | | | +--------+ + + + [...] by mouth. 2 | | 0 | 03/15/20 | | | (OXYCONTIN) 20 mg | tablets two to three | | | 11 | | | Oral Tablet Extended | times daily | | | | | | Release 12 hr | | | | | | + + + +---------+ + + | oxyCODONE, | Take by mouth. 1-2 | | 0 | 03/15/20 | | | immediate release, | tablets [...] | | 2018 | Visit | | [address] | | | | | | [facility] [place] | | | | | | [address] | | | | | | [phone] | | | | | | | [...]
--- OUTSIDE RECORDS SUMMARY | ~2019-09-04 | XMS | Encounter Summary ---
Demographics + + + | Address | [address] | | | [place] [address] | + + + | Home Phone [...] Providers + +------+ + | Care Machine Long Goods Helper Name | Role | Phone | [...] 2019 | | GASTROENTEROLOGY | [address], [place] | | | | | [address] | [address] [place], [place] | | | | | [address] [place], [place] | [address] | | | | | [address] | | | | | | [phone] | | | +--------+ + + + [...] | | | | | | [place] [address] | | | | | | [phone] | | | | | | | | +--------+---------+ + + + documented as of this encounter Visit Diagnoses Not on filedocumented in this encounter"
--- OUTSIDE RECORDS SUMMARY | ~2019-09-04 | XMS | Encounter Summary ---
Demographics + + + | Address | [address] | | | [place] [address] | + + + | Home Phone [...] Team Providers + +------+ + | Care Record Systems Analyst Name | Role | Phone | [...] + + | 08/30/ | Refill | [facility] | Manolo Kirk | Medication Refill | | 2019 | | [facility] | MD [address] | | | | | PRIMARY CARE [address] | [address] | | | | | [address] | [place] [address] | | | | | [place], [place] | [phone] | | | | | [address] | | | | | | [phone] | | | +--------+--------+ + + + [...] | | | | | | [place] [address] | | | | | | [phone] | | | | | | | | +--------+---------+ + + + documented as of this encounter Visit Diagnoses Not on filedocumented in this encounter"
--- OUTSIDE RECORDS SUMMARY | ~2019-09-04 | XMS | Encounter Summary ---
Demographics + + + | Address | [address] | | | [place] [address] | + + + | Home Phone | | + + + | Preferred Language | Unknown | + + + | Marital Status | | + + + | Presybeterian Affiliation | 1013 | + + + | Race | Unknown | + + + | Ethnic Group | Unknown | + + + Author + + + | Author | [employer] (Historical as of | | | 07-08-19) | + + + | Organization | [facility] (Historical as of | | | 07-08-19) [...] Team Providers + +------+ + | Care Magnetic Grinder Operator Name | Role | Phone [...] + + | 06/23/ | Documentati | [facility] | Geri Bear, | Other (st. gupta | | 2019 | on Only | Primary Care [address] | [address] | visit notes) | | | | [address] | | | | | | [place], [place] | | | | | | [address] | | | | | | [phone] | | | +--------+ + + + [...]
--- OUTSIDE RECORDS SUMMARY | ~2019-09-04 | XMS | Encounter Summary ---
Demographics + + + | Address | [address] | | | [place] [address] | + + + | Home Phone [...] Team Providers + +------+ + | Care Radioisotope Technician Name | Role | Phone | [...] 2019 | | GASTROENTEROLOGY | [address], [place] | Recommendations | | | | [address] | [address] [place], [place] | | | | | [address] [place], [place] | [address] | | | | | [address] | | | | | | [phone] | | | +--------+ + + + [...] | | | | | | [place] [address] | | | | | | [phone] | | | | | | | | +--------+---------+ + + + documented as of this encounter Visit Diagnoses Not on filedocumented in this encounter"
--- OUTSIDE RECORDS SUMMARY | ~2019-09-04 | XMS | Encounter Summary ---
Demographics + + + | Address | [address] | | | [place] [address] | + + + | Home Phone | | + + + | Preferred Language | Unknown | + + + | Marital Status | | + + + | Druze Affiliation | 1013 | + + + | Race | Unknown | + + + | Ethnic Group | Unknown | + + + Author + + + | Author | [employer] (Historical as of | | | 07-08-19) | + + + | Organization | [facility] [employer] (Historical as of | | | 07-08-19) [...] Team Providers + +------+ + | Care Handbag Parts Cutter Name | Role | Phone | + +------+ + | Kirk French MD | PCP | | + +------+ + Encounter Details +--------+ + + + + | Date | Type | Department | Care Team | Description | +--------+ + + + + | 06/08/ | Telephone | [facility] | Geri Bear, | | | 2018 | | Primary Care [address] | PATROL CONDUCTOR | | | | | [address] | | | | | | [place], [place] | | | | | | [address] | | | | | | [phone] | | | +--------+ + + + [...]
--- OUTSIDE RECORDS SUMMARY | ~2019-09-04 | XMS | Encounter Summary ---
Demographics + + + | Address | [address] | | | [place] [address] | + + + | Home Phone [...] Providers + +------+ + | Care Roll Tester Name | Role | Phone | [...] + + | 08/31/ | Refill | [facility] | Manolo Kirk | Medication Refill | | 2019 | | [facility] | [address] | | | | | PRIMARY CARE [address] | [address] | | | | | [address] | [place] [address] | | | | | [place], [place] | [phone] | | | | | [address] | | | | | | [phone] | | | +--------+--------+ + + + [...] | | | | | | [place] [address] | | | | | | [phone] | | | | | | | | +--------+---------+ + + + documented as of this encounter Visit Diagnoses Not on filedocumented in this encounter"
--- OUTSIDE RECORDS SUMMARY | ~2019-09-04 | XMS | Encounter Summary ---
Demographics + + + | Address | [address] [place] [address] | | | [place] [address] | + + + | Home Phone [...] | | | | | , [place] [address] | | + + + + + Care Team Providers + +------+ + | Care Training Facilitator Name | Role | Phone | [...] as of this encounter Progress Notes Interface, Informatica Developer In - 07/19/2006 3:05 AM PDTCLINIC DATE: 06/13/2002 [facility] REFERRING PHYSICIAN: Eugene Vera D.O. [address] [place] [address] Mr. Sanchez is a new patient. He [...] to proceed. Martell Allen M.D. / KATTY [id number] / [id number] / [id number] / [id number] cc: Eugene Vera D.O. [address] [place], [place] [email or web address] signed by Jael George In at 07/19/2006 3:0 5 AM PDTdocumented in this encounter Plan of Treatment +--------+---------+ + + + | Date | Type | Specialty | Care Team | Description | +--------+---------+ + + + | 09/28/ | Office | Gastroenterology | Bridgette Rios, | | | 2019 | Visit | | [address] | | | | | | [place], [place] | | | | | | [address] | | | | | | [phone] | | | | | | | | +--------+---------+ + + + documented as of this encounter Visit Diagnoses Not on filedocumented in this encounter
--- OUTSIDE RECORDS SUMMARY | ~2019-09-04 | XMS | Encounter Summary ---
Demographics + + + | Address | [address] | | | [place] [address] | + + + | Home Phone [...] Providers + +------+ + | Care Medical Doctor Nuclear Medicine Name | Role | Phone | [...] + + | 07/13/ | Telephone | [facility] | Kirk French | Referral Question | | 2019 | | [facility] | [address] | | | | | PRIMARY CARE [address] | [address] | | | | | [address] | [place] [address] | | | | | [place], [place] | [phone] | | | | | [address] | | | | | | [phone] | | | +--------+ + + + [...] | | | | | | [place] [address] | | | | | | [phone] | | | | | | | | +--------+---------+ + + + documented as of this encounter Visit Diagnoses Not on filedocumented in this encounter"
--- OUTSIDE RECORDS SUMMARY | ~2019-09-04 | XMS | Encounter Summary ---
Demographics + + + | Address | [address] | | | [place] [address] | + + + | Home Phone [...] + +------+ + | Care Accounts Receivable Accountant Name | Role | Phone | [...] | | GASTROENTEROLOGY | [address] [place] [place] | Recommendations | | | | [address] [place] | [address] [place], [place] | | | | | [address] [place], [place] | [address] | | | | | [address] | | | | | | [phone] | | | +--------+ + + + [...] | | | | | | [place] [address] | | | | | | [phone] | | | | | | | | +--------+---------+ + + + documented as of this encounter Visit Diagnoses Not on filedocumented in this encounter"
--- OUTSIDE RECORDS SUMMARY | ~2019-09-04 | XMS | Encounter Summary ---
Demographics + + + | Address | [address] | | | [place] [address] | + + + | Home Phone [...] Team Providers + +------+ + | Care Hr Manager Name | Role | Phone | [...] 2019 | | GASTROENTEROLOGY | [address] [place], [place] | | | | | [address] [place] | [address] [place], [place] | | | | | [address] [place], [place] | [address] | | | | | [address] | | | | | | [phone] | | | +--------+ + + + [...] | | | | | | [place] [address] | | | | | | [phone] | | | | | | | | +--------+---------+ + + + documented as of this encounter Visit Diagnoses Not on filedocumented in this encounter"
--- OUTSIDE RECORDS SUMMARY | ~2019-09-04 | XMS | Encounter Summary ---
Demographics + + + | Address | [address] [place] [address] | | | [place] [address] | + + + | Home Phone [...] | | | | | , [place] [address] | | + + + + + Care Team Providers + +------+ + | Care Medical Social Worker Name | Role | Phone [...] Chest pain | Farooq Almaguer, | [address] | | | | | Bradycardia | DO [address] | [place] | | | | | Procedures | Yao Booth | Mailcode: | | | | | | [place] Desai | [address] | | | | | TRANSTHORACI | [facility] [place] | for Health | | | | | C | [address] | and Healing, | | | | | ECHOCARDIOGR | Phone: | [address] | | | | | AM, ADULT | [phone] | [place], [place] | | | | | | Fax: | [address] | | | | | | [phone] | Phone: | | | | | | | [phone] | +--------+--------+ + + + + Encounter Details +--------+ + + + + | Date | Type | Department | Care Team | Description | +--------+ + + + + | 02/03/ | Hospital | Cardiac | | | | 2010 | Encounter | Non-Invasive Testing | | | | | | at [facility] [address] | | | | | | [address] Mailcode: | | | | | | [address] | | | | | | Health and Healing, | | | | | | [address] | | | | | | [place], [place] | | | | | | [address] | | | | | | [phone] | | | +--------+ + + + [...] | | 2018 | Visit | | [address] | | | | | | [facility] [place] | | | | | | [address] | | | | | | [phone] | | | | | | | [...]
--- OUTSIDE RECORDS SUMMARY | ~2019-09-04 | XMS | Encounter Summary ---
Demographics + + + | Address | [address] | | | [place] [address] | + + + | Home Phone [...] Providers + +------+ + | Care School Cleaner Name | Role | Phone | [...] + + | 06/06/ | Office | [facility] | [place], | Essential | | 2019 | Visit | CARDIOLOGY [address] | PARISA [address] | hypertension | | | | [place], | [place], | (Primary Dx); | | | | [place] [address] | [place] [address] | Sinoatrial node | | | | [phone] | [phone] | dysfunction (HCC) | | | | | | with symptomatic | | | | | | bradycardia; | | | | | | Symptomatic PVCs; | | | | | | Tachycardia; | | | | | | Coronary artery | | | | | | disease involving | | | | | | [place] coronary | | | | | | artery of [place] | | | | | | heart [...] encounter Patient Instructions Patient Instructions Julia Allen, Senior Billing Consultant - 06/06/2019 14:15 PDT1. Take a Nit [...] Service: 06/06/2019 HISTORY OF PRESENT ILLNESS: Moe Sanchze is a 59 y.o. 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 On 06/02/2019 he was seen here in [facility] department with chest pain, irregular heart [...] Preventative health care Coronary artery disease involving [place] coronary artery of [place] heart without angina pectoris Cannabis abuse, daily [...] 3RD DOSE, CALL 911 100 tablet 3 [place]-3 Fatty Acids (SALMON OIL-1000 PO) CAPS, one capsule by mouth daily twice daily ondansetron (ZOFRAN ODT) 4 mg disintegrating tablet Take 4 mg by mouth every 8 hours as needed for Nausea. ONE TOUCH DELICA LANCETS [facility] [...] RESULTS reviewed during visit today primarily from [facility]: LIPID Lab Results Component Value [...] BNP 48 06/02/2019 I reviewed records from [facility] for emergency department visit o n 06/02/2019 which is summarized in the HPI. RESULTS- I reviewed reports from [facility]: Ct Abdomen Pelvis W Contrast Result [...] ASSESSMENT: 1. Non-critical Coronary artery disease involving [place] coronary artery of [place] heart [facility] angina pectoris: A.Normal [...] to go back in 3 days to [place] for an attempt of ablation under general [...] visit, or sooner with concerns. Julia Clemente, Senior Billing Consultant am acting as a scribe on behalf of, and in the presenc e of PARISA Lomas. - Julia Allen Senior Billing Consultant 06/06/2019 15:10 Janeen Clemente ARNP, personally performed the services described in this documentati on, as scribed in my presence and it is both accurate and complete. -PARISA Lomas 06/06/2019 Portions of this chart may have been created with [employer] voice recognition software. Occasi onal wrong-word or [...] | | | | | | [place], | | | | | | [place] [address] | | | | | | [phone] | | | | | | | [...] MD | | | | | | ([id number]) on 06/06/2019 | | | | | [...] + + | Coronary artery disease involving [place] coronary artery of [place] heart without | | angina pectoris | + + | Syncope, unspecified syncope type | + + | Ascending thoracic aortic aneurysm (HCC) Thoracic aneurysm without mention of rupture | + + | Hyperlipidemia, mixed Mixed hyperlipidemia | + + documented in this encounter
--- OUTSIDE RECORDS SUMMARY | ~2019-09-04 | XMS | Encounter Summary ---
Demographics + + + | Address | [address] | | | [place] [address] | + + + | Home Phone | | + + + | Preferred Language | Unknown | + + + | Marital Status | | + + + | Tenriism Affiliation | 1013 | + + + | Race | Unknown | + + + | Ethnic Group | Unknown | + + + Author + + + | Author | [employer] (Historical as of | | | 07-08-19) | + + + | Organization | [facility] [employer] (Historical as of | | | 07-08-19) [...] + + | 06/08/ | Telephone | [facility] | Geri Bear, | | | 2018 | | Primary Care [address] | DELIVERY ROOM SUPERVISOR | | | | | [address] | | | | | | [place], [place] | | | | | | [address] | | | | | | [phone] | | | +--------+ + + + [...]
--- OUTSIDE RECORDS SUMMARY | ~2019-09-04 | XMS | Encounter Summary ---
Demographics + + + | Address | [address] | | | [place] [address] | + + + | Home Phone | | + + + | Preferred Language | Unknown | + + + | Marital Status | | + + + | Worship Affiliation | 1013 | + + + | Race | Unknown | + + + | Ethnic Group | Unknown | + + + Author + + + | Author | [facility] (Historical as of | | | 07-08-19) | + + + | Organization | [facility] (Historical as of | | | 07-08-19) [...] Team Providers + +------+ + | Care Size Cutter Name | Role | Phone | [...] + + | 06/12/ | Documentati | [facility] | Geri Bear, | Other (allyson | | 2019 | on Only | Primary Care 560 | MAINTENANCE EQUIPMENT OPERATOR | hillary thornton) | | | | [address] | | | | | | [place], [place] | | | | | | [address] | | | | | | [phone] | | | +--------+ + + + [...]
--- OUTSIDE RECORDS SUMMARY | ~2019-09-04 | XMS | Clinical Summary ---
Demographics + + + | Address | [address] [place] [address] | | | [place] [address] | + + + | Home Phone [...] | | | | | , [place] [address] | | + + + + + Care Team Providers + +------+ + | Care General Farmworker Name | Role | Phone | + +------+ + | Darion Holden DO | PCP | | + +------+ + Source Comments I[facility] is fully live on both [facility] Ambulatory and [facility] InPatient.[facility] Allergies + + + + + [...] | | 2018 | Visit | | [address] | | | | | | [place], [place] | | | | | | [address] | | | | | | [phone] | | | | | | | [...] | x | 11-Pre | 8 | [address] | | | | STATE | | sent | | [place], | | | | | | | | [place] | | | | | | | | [address] | | + +--------+ +--------+ + +--------+ | MEDICARE | MEDICA | xxxxxxxxxxx | 11/22/19 | [phone] | [address] | Medica | | | RE A & | | 10-Pre | 1 | [address] | re | | | B | | sent | | [place] | | | | | | | | [address] | | + +--------+ +--------+ + +--------+ | [employer] | AARP | xxxxxxxxxx | 11/22/19 | [phone] | [address] | Indemn | | RETIRED PEOPLE | | | 10-Pre | 9 | [address] | ity | | | | | sent | | [place] | | | | | | | | [address] | | + +--------+ +--------+ + +--------+ + +--------+ +--------+ + + | Guarantor Name | Accoun | Relation to | Date | Phone | Billing Address | | | t Type | Patient | of | | | | | | | | | | + +--------+ +--------+ + + | Moe Sanchez | Person | Self | [birth year] | [address] | | | al/Fam | | 1959 | [phone] | [place] | | | roxanne | | | 6 (Home) | [address] | + +--------+ +--------+ + + Advance Directives + + + + + | Type | Date Recorded | Patient | Explanation | | | | Self Contained Behavior Unit Teacher | | + + + + + | Advance | | | | | Directives and | | | | | Living Will | | | | + + + + + | Power of | | | | | Revenue Enforcement Collection Agent | | | | + + + + +
--- OUTSIDE RECORDS SUMMARY | ~2019-09-04 | XMS | Encounter Summary ---
Demographics + + + | Address | [address] [place] [address] | | | [place] [address] | + + + | Home Phone [...] | | | | | , [place] [address] | | + + + + + [...] | | Bradycardia | | | | [place], [place] | | | | | | [address] | | | | | | [phone] | | | +--------+------+ + + + [...] | | 2018 | Visit | | [address] | | | | | | [place], [place] | | | | | | [address] | | | | | | [phone] | | | | | | | [...] ([facility]) | [facility] | | [place] [address] | REGIONAL | | [place] [address] | LABORATORY | + + + + + + + + | Performing | Address | City/State/Zipcode | Phone Number | | Organization | | | | + + + + + | [facility] | [address] | [place] [address] | | | LABORATORY | | | [...] RLB ([facility]) | | | [place] [address] | | | [place] [address] | | + + + + + + + + | Performing | Address | City/State/Zipcode | Phone Number | | Organization | | | | + + + + + | [facility] | [address] | [place] [address] | | | LABORATORY | | | [...] | | | DEPARTMENT | | | [place] | | | OF | | | [...] | + + + + + | [facility] | [address] | [place] [address] | | | PATHOLOGY | [address] | | | + + + + + documented in this encounter Visit Diagnoses + + | Diagnosis | + + | Chest pain Chest pain, unspecified | + + | Bradycardia Other specified cardiac dysrhythmias | + + documented in this encounter"
--- OUTSIDE RECORDS SUMMARY | ~2019-09-04 | XMS | Encounter Summary ---
Demographics + + + | Address | [address] | | | [place] [address] | + + + | Home Phone | | + + + | Preferred Language | Unknown | + + + | Marital Status | | + + + | Adventist Affiliation | 1013 | + + + | Race | Unknown | + + + | Ethnic Group | Unknown | + + + Author + + + | Author | [employer] (Historical as of | | | 07-08-19) | + + + | Organization | [facility] [employer] (Historical as of | | | 07-08-19) [...] + +------+ + | Care Field Crop Farming Supervisor Name | Role | Phone | + +------+ + | Kirk French MD | PCP | | + +------+ + Encounter Details +--------+--------+ + + + | Date | Type | Department | Care Team | Description | +--------+--------+ + + + | 06/06/ | Refkathi | [facility] | Geri Bear, | | | 2019 | | Primary Care [address] | PATIENT APPOINTMENT COORDINATOR | | | | | [address] | | | | | | [place] | | | | | | [address] | | | | | | [phone] | | | +--------+--------+ + + + [...]
--- OUTSIDE RECORDS SUMMARY | ~2019-09-04 | XMS | Encounter Summary ---
Demographics + + + | Address | [address] | | | [place] [address] | + + + | Home Phone [...] | 07/31/ | Telephone | [facility] [place] | Silvia, | AFSHAN | | 2019 | | CARDIOLOGY [address] | [address] | | | | | [place], | [place], | | | | | [place] [address] | [place] [address] | | | | | [phone] | | | | | | | [...] | | | | | | [place] [address] | | | | | | [phone] | | | | | | | [...]
--- OUTSIDE RECORDS SUMMARY | ~2019-09-04 | XMS | Encounter Summary ---
Demographics + + + | Address | [address] | | | [place] [address] | + + + | Home Phone [...] 2019 | | GASTROENTEROLOGY | [address] | | | | | [address] | [address] [place], [place] | | | | | [address] [place], [place] | [address] | | | | | [address] | | | | | | [phone] | | | +--------+ + + + [...] | | | | | | [place] [address] | | | | | | [phone] | | | | | | | | +--------+---------+ + + + documented as of this encounter Visit Diagnoses Not on filedocumented in this encounter"
--- OUTSIDE RECORDS SUMMARY | ~2019-09-04 | XMS | Encounter Summary ---
Demographics + + + | Address | [address] | | | [place] [address] | + + + | Home Phone [...] Providers + +------+ + | Care Diabetes Solutions Specialist Name | Role | Phone | [...] | 09/04/ | Telephone | [facility] [place] | Emmanuel Daniel MD | Other | | 2019 | | GASTROENTEROLOGY | [address] | | | | | [address] | [address] [place], [place] | | | | | [address] [place], [place] | [address] | | | | | [address] | | | | | | [phone] | | | +--------+ + + + [...] | | | | | | [place] [address] | | | | | | [phone] | | | | | | | | +--------+---------+ + + + documented as of this encounter Visit Diagnoses Not on filedocumented in this encounter"
--- OUTSIDE RECORDS SUMMARY | ~2019-09-04 | XMS | Encounter Summary ---
Demographics + + + | Address | [address] | | | [place] [address] | + + + | Home Phone | | + + + | Preferred Language | Unknown | + + + | Marital Status | | + + + | Episcopalian Affiliation | 1013 | + + + | Race | Unknown | + + + | Ethnic Group | Unknown | + + + Author + + + | Author | [employer] [facility] (Historical as of | | | 07-08-19) | + + + | Organization | [facility] (Historical as of | | | 07-08-19) [...] + +------+ + | Care Student Services Coordinator Name | Role | Phone | + +------+ + | Kirk French MD | PCP | | + +------+ + Reason for Referral Cardiac Rehabilitation (Routine) + +--------+ + + + + | Status | Reason | Specialty | Diagnoses / | Referred By | Referred To | | | | | Procedures | Contact | Contact | + +--------+ + + + + | Authorized | | Cardiac | Diagnoses | Kalichman, | Rehab, St. | | | | Rehabilitatio | Pacemaker | Kirk Guidry, | Kirby | | | | n | Coronary | MD [address] | Cardiac [address] | | | | | artery | [address] | [facility] [place] | | | | | disease | [address] | [address] | | | | | involving | [place], [place] | [place], [place] | | | | | [place] | [address] | [address] | | | | | coronary | Phone: | Phone: | | | | | artery | [phone] | [phone] | | | | | without | Fax: | Fax: | | | | | angina | [phone] | [phone] | | | | | pectoris, | | | | | | | unspecified | | | | | | | whether | | | | | | | [place] or | | | | | | | transplanted | | | | | | | heart | | | | | | | Chest pain, | | | | | | | unspecified | | | | | | | type | | | | | | | Hypertension | | | | | | | , | | | | | | | unspecified | | | | | | | type | | | + +--------+ + + + + Encounter Details +--------+ + + + + | Date | Type | Department | Care Team | Description | +--------+ + + + + | 06/26/ | Telephone | [facility] | Geri Bear, | | | 2018 | | Primary Care [address] | STOPPER MAKER HELPER | | | | | [address] | | | | | | [place], [place] | | | | | | [address] | | | | | | [phone] | | | +--------+ + + + [...] of this encounter Plan of Treatment + +--------+ + + | Name | Priori | Associated Diagnoses | Order Schedule | | | ty | | | + +--------+ + + | Ambulatory referral to Cardiac | Routin | Pacemaker | Ordered: 06/26/2019 | | Rehab | e | Coronary artery | | | | | disease involving | | | | | [place] coronary | | | | | artery without | | | | | angina pectoris, | | | | | unspecified whether | | | | | [place] or | | | | | transplanted heart | | | | | Chest pain, | | | | | unspecified type | | | | | Hypertension, | | | | | unspecified type | | + +--------+ + + as of this encounter Visit Diagnoses + + | Diagnosis | + + | Pacemaker - Primary | + + | Cardiac pacemaker in situ | + + | Coronary artery disease involving [place] coronary artery without angina pectoris, | | unspecified whether [place] or transplanted heart | + + | Chest pain, unspecified type | + + | Hypertension, unspecified type | + +
--- OUTSIDE RECORDS SUMMARY | ~2019-09-04 | XMS | Encounter Summary ---
Demographics + + + | Address | [address] [place] [address] | | | [place] [address] | + + + | Home Phone [...] | | | | | , [place] [address] | | + + + + + Care Team Providers + +------+ + | Care Pain Coordinator Name | Role | Phone | [...] | | Center at [facility] [address] | Gastroenterology | Gastroenterology | | | | [address] | | | | | | Mailcode: [place] | | | | | | [facility] and | | | | | | [facility], Building [address] | | | | | | [place], [place] | | | | | | [address] | | | | | | [phone] | | | +--------+ + + + [...] | | 2019 | Visit | | [address] | | | | | | [place], [place] | | | | | | [address] | | | | | | [phone] | | | | | | | | +--------+---------+ + + + documented as of this encounter Visit Diagnoses Not on filedocumented in this encounter"
--- OUTSIDE RECORDS SUMMARY | ~2019-09-04 | XMS | Encounter Summary ---
Demographics + + + | Address | [address] | | | [place] [address] | + + + | Home Phone [...] Team Providers + +------+ + | Care Dispatch Clerk Name | Role | Phone | [...] | 09/04/ | Telephone | [facility] [place] | Emmanuel Daniel MD | Other | | 2019 | | GASTROENTEROLOGY | [address] [place], [address] | | | | | [address] | [address] [place], [place] | | | | | [address] [place], [place] | [address] | | | | | [address] | | | | | | [phone] | | | +--------+ + + + [...] | | | | | | [place] [address] | | | | | | [phone] | | | | | | | | +--------+---------+ + + + documented as of this encounter Visit Diagnoses Not on filedocumented in this encounter"
--- OUTSIDE RECORDS SUMMARY | ~2019-09-04 | XMS | Encounter Summary ---
Demographics + + + | Address | [address] | | | [place] [address] | + + + | Home Phone [...] Team Providers + +------+ + | Care Decorating Supervisor Name | Role | Phone | [...] + + | 08/30/ | Refill | [facility] | Manolo Kirk | Medication Refill | | 2019 | | [facility] | MD [address] | | | | | PRIMARY CARE [address] | [address] | | | | | [address] | [place] [address] | | | | | [place], [place] | [phone] | | | | | [address] | | | | | | [phone] | | | +--------+--------+ + + + [...] | | | | | | [place] [address] | | | | | | [phone] | | | | | | | | +--------+---------+ + + + documented as of this encounter Visit Diagnoses Not on filedocumented in this encounter"
--- OUTSIDE RECORDS SUMMARY | ~2019-09-04 | XMS | Encounter Summary ---
Demographics + + + | Address | [address] [place] [address] | | | [place] [address] | + + + | Home Phone [...] | | | | | , [place] [address] | | + + + + + Care Team Providers + +------+ + | Care Green Promotions Specialist Name | Role | Phone | [...] Chest pain | Farooq Almaguer, | [address] | | | | | Bradycardia | DO [address] | [place] | | | | | Procedures | [address] | Mailcode: | | | | | | Palak Desai | [address] [place] | | | | | TRANSTHORACI | [facility] [place] | for Health | | | | | C | [address] | and Healing, | | | | | ECHOCARDIOGR | Phone: | Building [address] | | | | | AM, ADULT | [phone] | [place], [place] | | | | | | Fax: | [address] | | | | | | [phone] | Phone: | | | | | | | [phone] | +--------+--------+ + + + + Reason [...] | | | | | | [place] [address] | | | | | | | Phone: | | | | | | | [phone] | | | | | | | Fax: | | | | | | | [phone] | | +--------+--------+ + + + + Encounter Details +--------+---------+ + + + | Date | Type | Department | Care Team | Description | +--------+---------+ + + + | 02/03/ | Office | Cardiology General | Arlette Drew, | Chest pain (Primary | | 2010 | Visit | at [facility] [address] | MD | Dx); Bradycardia; | | | | [address] Mailcode: | | Pacemaker | | | | [facility] [place] for | | | | | | Health and Healing, | | | | | | | | | | | | Floor [place], [place] | | | | | | [address] | | | | | | [phone] | | | +--------+---------+ + + + [...] per Dr. Drew's note. Farooq Jamil DO Immigration Manager Clinical resident care assistant/ Division of Cardiovascular Medicine ajaira Vaz RN - 02/09/2011 12:59 PM PDT PACEMAKER HISTORY Primary Care Provider: Darion Holden DO Senior Microsoft Net Developer: Arlette Drew MD Moe Sanchez is a [...] was put at the recommendation of Senior [employer] Net Developer Dr. Singletary from [place]. [place]. Pt. states lala bhatti was put>1 [...] form tilt table testing but NA at [facility] May need to involve endocrine and [...] Dr. Omero DREW MD CARDIOLOGY - GENERAL [address] Mailcode: Ch[facility], [address] [facility] [address] documented in this en counter Plan of Treatment +--------+---------+ + + + | Date | Type | Specialty | Care Team | Description | +--------+---------+ + + + | 09/28/ | Office | Gastroenterology | Bridgette Rios, | | | 2018 | Visit | | [address] | | | | | | [place], [place] | | | | | | [address] | | | | | | [phone] | | | | | | | [...] + + + | RLB ([address] [facility]) | [facility] | | [facility] [place] [address] [address] [facility] | REGIONAL | | [place] [address] | LABORATORY | + + + + + + + + | Performing | Address | City/State/Zipcode | Phone Number | | Organization | | | | + + + + + | [facility] | [address] | [place] [address] | | | LABORATORY | | | [...] RLB ([facility]) | | | [facility] [address] | | | [place] [address] | | + + + + + + + + | Performing | Address | City/State/Zipcode | Phone Number | | Organization | | | | + + + + + | [facility] | [address] | [place] [address] | | | LABORATORY | | | [...] | | | DEPARTMENT | | | SOLOMON ISLANDER | | | OF | | [...] | + + + + + | [facility] | [address] | [place] [address] | | | PATHOLOGY | [address] | | | + + + + + EJECTION FRACTION (02/03/2011 3:33 PM PDT) + +-------+ + + + | Component | Value | Ref Range | Performed | Pathologist | | | | | At | Signature | + +-------+ + + + | BIPLANE, EF | 59.1 | | [facility] DEPT | | | | | [...] DEPT OF | [address] | [place], [place] | | | CARDIOLOGY | [address] | [address] | | + + + + + [...] DEPT OF | [address] | [place], [place] | | | CARDIOLOGY | [address] | [address] | | + + + + + [...] view image for the detailed interpretation from [employer] results. | CARDIOLOGY | + + + + + + + + | Performing | Address | City/State/Zipcode | Phone Number | | Organization | | | | + + + + + | [facility] OF | [address] | [place], [place] | | | CARDIOLOGY | [address] | [address] | | + + + + + documented in this encounter Visit Diagnoses + + | Diagnosis | + + | Chest pain - Primary Chest pain, unspecified | + + | Bradycardia Other specified cardiac dysrhythmias | + + | Pacemaker Cardiac pacemaker in situ | + + documented in this encounter
--- OUTSIDE RECORDS SUMMARY | ~2019-09-04 | XMS | Encounter Summary ---
Demographics + + + | Address | [address] | | | [place] [address] | + + + | Home Phone [...] Team Providers + +------+ + | Care Spark Plug Tester Name | Role | Phone | [...] | 07/31/ | Telephone | [facility] [place] | Silvia, | AFSHAN | | 2019 | | CARDIOLOGY [address] | [address] | | | | | [place], | [place], | | | | | [place] [address] | [place] [address] | | | | | [phone] | | | | | | | [...] | | | | | | [place] [address] | | | | | | [phone] | | | | | | | [...]
--- OUTSIDE RECORDS SUMMARY | ~2019-09-04 | XMS | Encounter Summary ---
Demographics + + + | Address | [address] | | | [place] [address] | + + + | Home Phone [...] Team Providers + +------+ + | Care Mission Manager Name | Role | Phone | [...] | | CARDIOLOGY [address] | Janeen, PRINCIPAL ENGINEER [address] | [address]) | | | | [place], | [place], | | | | | [place] [address] | [place] [address] | | | | | [phone] | [phone] | | | | | | | [...] | | | | | | [place] [address] | | | | | | [phone] | | | | | | | | +--------+---------+ + + + documented as of this encounter Visit Diagnoses Not on filedocumented in this encounter"
--- OUTSIDE RECORDS SUMMARY | ~2019-09-04 | XMS | Encounter Summary ---
Demographics + + + | Address | [address] | | | [place] [address] | + + + | Home Phone | | + + + | Preferred Language | Unknown | + + + | Marital Status | | + + + | Hindu Affiliation | 1013 | + + + | Race | Unknown | + + + | Ethnic Group | Unknown | + + + Author + + + | Author | [employer] (Historical as of | | | 07-08-19) | + + + | Organization | [facility] [facility] (Historical as of | | | 07-08-19) [...] Providers + +------+ + | Care Boat Ride Operator Name | Role | Phone | [...] | | | | | involving | [place], [place] | [place], [place] | | | | | [place] | [address] | [address] | | | | | coronary | Phone: | Phone: | | | | | artery | [phone] | [phone] | | | | | without | Fax: | Fax: | | | | | angina | [phone] | [phone] | | | | | pectoris, | | | | | | | unspecified | | | | | | | whether | | | | | | | [place] or | | | | | | [...] + | 06/26/ | Telephone | [facility] | Geri Bear, | | | 2018 | | Primary Care [address] | SIMULATION DEVELOPER | | | | | [address] | | | | | | [place], [place] | | | | | | [address] | | | | | | [phone] | | | +--------+ + + + [...] disease involving | | | | | [place] coronary | | | | | artery without | | | | | angina pectoris, | | | | | unspecified whether | | | | | [place] or | | | | | transplanted [...] + | Coronary artery disease involving [place] coronary artery without angina pectoris, | | unspecified whether [place] or transplanted heart | + + | Chest pain, unspecified type | + + | Hypertension, unspecified type | + +
--- OUTSIDE RECORDS SUMMARY | ~2019-09-04 | XMS | Encounter Summary ---
Demographics + + + | Address | [address] [place] [address] | | | [place] [address] | + + + | Home Phone [...] | | | | | , [place] [address] | | + + + + + Care Team Providers + +------+ + | Care Picture Painter Name | Role | Phone | [...] | | Bradycardia | | | | [place], [place] | | | | | | [address] | | | | | | [phone] | | | +--------+------+ + + + [...] | | 2018 | Visit | | [address] | | | | | | [place], [place] | | | | | | [address] | | | | | | [phone] | | | | | | | [...] ([facility]) | [facility] | | [facility] [place] [address] | REGIONAL | | [place] [address] | LABORATORY | + + + + + + + + | Performing | Address | City/State/Zipcode | Phone Number | | Organization | | | | + + + + + | [facility] | [address] | [place] [address] | | | LABORATORY | | | [...] RLB ([address] [facility]) | | | [facility] [place] [address] | | | [place] [address] | | + + + + + + + + | Performing | Address | City/State/Zipcode | Phone Number | | Organization | | | | + + + + + | [facility] | [address] | [place] [address] | | | LABORATORY | | | [...] + + + + | [facility] | [address] | [place] [address] | | | PATHOLOGY | [address] | | | + + + + + documented in this encounter Visit Diagnoses + + | Diagnosis | + + | Chest pain Chest pain, unspecified | + + | Bradycardia Other specified cardiac dysrhythmias | + + documented in this encounter"
--- OUTSIDE RECORDS SUMMARY | ~2019-09-04 | XMS | Clinical Summary ---
Demographics + + + | Address | [address] | | | [place] [address] | + + + | Home Phone | | + + + | Preferred Language | Unknown | + + + | Marital Status | | + + + | Confucianist Affiliation | 1013 | + + + | Race | Unknown | + + + | Ethnic Group | Unknown | + + + Author + + + | Author | [employer] (Historical as of | | | 07-08-19) | + + + | Organization | [facility] (Historical as of | | | 07-08-19) [...] Providers + +------+ + | Care Carpenter Helper Maintenance Name | Role | Phone | [...] | | | 2019 | | | CHILI MAKER | | +--------+ + + + + | 06/23/ | Documentati | | Geri Bear, | Britt ([facility]. faustin | | 2018 | on Only | | CHILI MAKER | visit notes) | +--------+ + + + + | 06/12/ | Documentati | | Geri Bear, | Other (allyson | | 2018 | on Only | | CHILI MAKER | hillary thornton) | +--------+ + + + + | 06/08/ | Telephone | | Geri Bear, | | | 2019 | | | CHILI MAKER | | +--------+ + + + + | 06/06/ | Refill | | Geri Bear, | | | 2019 | | | CHILI MAKER | | +--------+ + + + + [...] + | AUTO INSURANCE | AUTO | [id number] | | | | | | INSURA | | | | | | | NCE | | | | | | | GENERI | | | | | | | C | | | | | + +--------+ +------+-------+ + | AUTO INSURANCE | AUTO | [id number] | | | | | | INSURA | [id number] | | | | | | NCE | | | | | | | GENERI | | | | | | | C | | | | | + +--------+ +------+-------+ + | MEDICARE | MEDICA | [id number] | | | [address] | | | RE | | | | [place] [address] | | | IP-OP | | | | | + +--------+ +------+-------+ + | [facility] | UNITED | [id number] | | | | | | | [...] | + +--------+ +--------+ + + | AMILACR GAY | Person | Self | [birth year] | Home: | [facility] [address] | | | al/Fam | | 1959 | +- | [place] | | | roxanne | | | [phone] | [address] | + +--------+ +--------+ + + | AMILCAR GAY | Third | Self | [birth year] | Home: | [address] | | | Republican | | 1959 | - | [place] | | | [place] | | | [phone] | [address] | | | ity | | | | | + +--------+ +--------+ + + | AMILCAR GAY W | Third | Self | [birth year] | Home: | [address] | | | Republican | | 1960 | [phone] | [place] | | | Azr[place] | | | [phone] | [address] | | | itvarsha | | | | | + +--------+ +--------+ + +
--- OUTSIDE RECORDS SUMMARY | ~2019-09-04 | XMS | Encounter Summary ---
Demographics + + + | Address | [address] | | | [place] [address] | + + + | Home Phone [...] Providers + +------+ + | Care Customer Engagement Representative Name | Role | Phone | [...] + + | 07/13/ | Telephone | [facility] | Kirk French | Referral Question | | 2019 | | [facility] | MD [address] | | | | | [address] | [address] | | | | | [address] | [place] [address] | | | | | [place], [place] | [phone] | | | | | [address] | | | | | | [phone] | | | +--------+ + + + [...] | | | | | | [place] [address] | | | | | | [phone] | | | | | | | | +--------+---------+ + + + documented as of this encounter Visit Diagnoses Not on filedocumented in this encounter"
--- OUTSIDE RECORDS SUMMARY | ~2019-09-04 | XMS | Encounter Summary ---
Demographics + + + | Address | [address] | | | [place] [address] | + + + | Home Phone [...] Providers + +------+ + | Care Energy Control Officer Name | Role | Phone | [...] 2019 | | GASTROENTEROLOGY | [address], [place] | | | | | [address] [place] | [address] [place], [place] | | | | | [address] [place], [place] | [address] | | | | | [address] | | | | | | [phone] | | | +--------+ + + + [...] | | | | | | [place] [address] | | | | | | [phone] | | | | | | | | +--------+---------+ + + + documented as of this encounter Visit Diagnoses Not on filedocumented in this encounter"
--- OUTSIDE RECORDS SUMMARY | ~2019-09-04 | XMS | Clinical Summary ---
Demographics + + + | Address | [address] | | | [place] [address] | + + + | Home Phone [...] Providers + +------+ + | Care Gis Physical Scientist Name | Role | Phone | [...] | | + + + +---------+------+------+-------+ | [place]-3 Fatty | CAPS, one capsule by [...] | | | | | | | muckleshoot coronary | | | | | | | | artery of [place] | | | | | | | [...] + | Overview: Lower back injury (From [facility]) 1980 1984 | + + + [...] + + | Coronary artery disease involving [place] coronary artery of | 12/21/2013 | | muckleshoot heart without angina pectoris | | + [...] attenuation cannot | | completely be ruled out.[facility] 12/25/13, shows non critical coronary [...] back in 3 days to | | [place] for an attempt of ablation under general [...] IMPLANTED GENERATOR | | Medtronic DDD ADDR01 [id number] 06/14/09 RV LEAD Medtronic Active | | Bipolar CapSureFix 4076 [id number] 06/14/09 A LEAD Medtronic | | Active Bipolar CapSurFix 4076 [id number] 06/14/09 | + + + +---+ | [...] size and systolic function, LVEF 65 to 70%.Delivery Clubtronic | | DDD permanent pacemaker implantation on [...] | Heart Cath, 02/29/2012, LVEF is 65%, [facility] | | [facility] Myocardial Gated Stress Test, 05/25/2009, EF 53 | | % during rest and 52% during stress. [facility], | | [place], [place].Persantine Sestamibi Stress Test, 06/14/2008, LVEF is | | 60%, [facility] 12/25/13, shows noncritical | | [...] Plan: Nonobstructive CAD noted | | on [facility] from 2013, no EKG changes, [...] 08/30/ | Refill | Family Medicine | iKrk French | Medication Refill | | 2018 [...] involving | | | | | | muck[place] coronary | | | | | | artery of muck[place]oot | | | | | | heart [...] + + | Mother | | | [place] | | | | (Age | | [...] | | | | | | [place], | | | | | | [place] [address] | | | | | | [phone] | | | | | | | [...] Left: | COOK | | 09/27/ | [id number] | | - [id number]: | | [employer] | [employer] | | 2020 | / | | Qty: 1 on 04/13/2019 by | | | - CAMERON | | | /[id number] | | Matthew Uriarte MD | | [...] SYDNI | | | | | | ([id number]) on 06/06/2019 | | | | | [...] +--------+ +---------+--------+ | MEDICARE | MEDICA | [id number] | 01/21/20 | [phone] | | Medica | | | RE | | 01-Pre | 5 | | re | | | PART A | | sent | | | | | | AND B | | | | | | + +--------+ +--------+ +---------+--------+ | AARP | AARP | [id number] | | [phone] | | Indemn | [...] Person | Self | [birth year] | | [address] | | [place] | cristo/Per | | 1959 | [phone] | [place] | | | roxanne | | | 6 (Home) | [address] | + +--------+ +--------+ + + | Moe Sanchez | Third | Self | [birth year] | | [address] | | [place] | Rayray | | 1959 | [phone] | [place] | | | Li[place] | | | 3 (Home) | [address] | | | ity | | | | | + +--------+ +--------+ + + Advance Directives Patient has advance care planning documents, and code status on file. For more information, please contact:[facility] [place] [address] + + + + + | Code [...]
--- OUTSIDE RECORDS SUMMARY | ~2019-09-04 | XMS | Encounter Summary ---
Demographics + + + | Address | [address] [place] [address] | | | [place] [address] | + + + | Home Phone [...] | | | | | , [place] [address] | | + + + + + Care Team Providers + +------+ + | Care Press Pipe Inspector Name | Role | Phone [...] Chest pain | Farooq Almaguer, | [address] | | | | | Bradycardia | DO [address] | [place] | | | | | Procedures | [address] | Mailcode: | | | | | | Palak Des[place] | [address] [place] | | | | | TRANSTHORACI | [facility] [place] | for Health | | | | | C | [address] | and Healing, | | | | | ECHOCARDIOGR | Phone: | Building [address] | | | | | AM, ADULT | [phone] | [place], [place] | | | | | | Fax: | [address] | | | | | | [phone] | Phone: | | | | | | | [phone] | +--------+--------+ + + + + Reason [...] | | | | | | | [place] [address] | | | | | | | Phone: | | | | | | | [phone] | | | | | | | Fax: | | | | | | | [phone] | | +--------+--------+ + + + + Encounter Details +--------+---------+ + + + | Date | Type | Department | Care Team | Description | +--------+---------+ + + + | 02/03/ | Office | Cardiology General | Arlette Drew, | Chest pain (Primary | | 2010 | Visit | at [facility] [address] | MD | Dx); Bradycardia; | | | | [address] Mailcode: | | Pacemaker | | | | [facility] [place] for | | | | | | Health and Healing, | | | | | | | | | | | | Floor [place], [place] | | | | | | [address] | | | | | | [phone] | | | +--------+---------+ + + + [...] per Dr. Drew's note. Farooq Jamil DO Vc++ Developer Clinical power digger operator/ Division of Cardiovascular Medicine ajaira Vaz RN - 02/09/2011 12:59 PM PDT PACEMAKER HISTORY Primary Care Provider: Darion Holden DO Clay Carman: Arlette Drew MD Moe Sanchez is a [...] pacemaker was put at the recommendation of Clay Carman Dr. Singletary from [place]. [place]. Pt. states lala bhatti was put>1 [...] form tilt table testing but NA at [facility] May need to involve endocrine [...] Dr. Omero DREW MD CARDIOLOGY - GENERAL [address] Mailcode: Ch9a [facility], 9th [facility] [address] documented in this en counter Plan of Treatment +--------+---------+ + + + | Date | Type | Specialty | Care Team | Description | +--------+---------+ + + + | 09/28/ | Office | Gastroenterology | Bridgette Rios, | | | 2018 | Visit | | [address] | | | | | | [place], [place] | | | | | | [address] | | | | | | [phone] | | | | | | | [...] + + + | [address] ([address] [facility]) | [facility] | | [facility] [place] [address] [facility] | REGIONAL | | [place] [address] | LABORATORY | + + + + + + + + | Performing | Address | City/State/Zipcode | Phone Number | | Organization | | | | + + + + + | [facility] | [address] | [place] [address] | | | LABORATORY | | | [...] Way Lab) | | | [facility] [address] | | | [place] [address] | | + + + + + + + + | Performing | Address | City/State/Zipcode | Phone Number | | Organization | | | | + + + + + | [facility] | [address] | [place] [address] | | | LABORATORY | | | [...] | | | DEPARTMENT | | | [place] | | | OF | | | [...] | + + + + + | [facility] | [address] | [place] [address] | | | PATHOLOGY | [address] | | | + + + + + EJECTION FRACTION (02/03/2011 3:33 PM PDT) + +-------+ + + + | Component | Value | Ref Range | Performed | Pathologist | | | | | At | Signature | + +-------+ + + + | BIPLANE, EF | 59.1 | | [facility] DEPT | | | | [...] DEPT OF | [address] | [place], [place] | | | CARDIOLOGY | [address] | [address] | | + + + + + [...] DEPT OF | [address] | [place], [place] | | | CARDIOLOGY | [address] | [address] | | + + + + + [...] view image for the detailed interpretation from [facility] results. | CARDIOLOGY | + + + + + + + + | Performing | Address | City/State/Zipcode | Phone Number | | Organization | | | | + + + + + | [facility] | [address] | [place], [place] | | | CARDIOLOGY | [address] | [address] | | + + + + + documented in this encounter Visit Diagnoses + + | Diagnosis | + + | Chest pain - Primary Chest pain, unspecified | + + | Bradycardia Other specified cardiac dysrhythmias | + + | Pacemaker Cardiac pacemaker in situ | + + documented in this encounter
--- OUTSIDE RECORDS SUMMARY | ~2019-09-04 | XMS | Encounter Summary ---
Demographics + + + | Address | [address] [place] [address] | | | [place] [address] | + + + | Home Phone [...] | | | | | , [place] [address] | | + + + + + Care Team Providers + +------+ + | Care Calender Worker Helper Name | Role | Phone [...] [place] | | | | | at [facility] | [facility] | | | | | [address] | [place] [address] | | | | | [facility] | | | | | | Mailcode: OP12B Yao | | | | | | [facility] | | | | | | [facility] | | | | | | [place] [address] | | | | | | [phone] | | | +--------+ + + + [...] | | 2019 | Visit | | [address] | | | | | | [place], [place] | | | | | | [address] | | | | | | [phone] | | | | | | | [...] view image for the detailed interpretation from [employer] results. | CARDIOLOGY | + + + + + + + + | Performing | Address | City/State/Zipcode | Phone Number | | Organization | | | | + + + + + | [facility] | [address] | [place], [place] | | | CARDIOLOGY | [address] | [address] | | + + + + + documented in this encounter Visit Diagnoses Not on filedocumented in this encounter"
--- OUTSIDE RECORDS SUMMARY | ~2019-09-04 | XMS | Encounter Summary ---
Demographics + + + | Address | [address] [place] [address] | | | [place] [address] | + + + | Home Phone [...] | | | | | , [place] [address] | | + + + + + Care Team Providers + +------+ + | Care Adoption Services Manager Name | Role | Phone [...] [place] | | | | | at [facility] | [facility] | | | | | [address] | [place] [address] | | | | | [facility] | | | | | | Mailcode: OP12B Yao | | | | | | [facility] | | | | | | [facility] | | | | | | [place] [address] | | | | | | [phone] | | | +--------+ + + + [...] | | 2019 | Visit | | [address] | | | | | | [place], [place] | | | | | | [address] | | | | | | [phone] | | | | | | | [...] view image for the detailed interpretation from [employer] results. | CARDIOLOGY | + + + + + + + + | Performing | Address | City/State/Zipcode | Phone Number | | Organization | | | | + + + + + | [facility] | [address] | [place], [place] | | | CARDIOLOGY | [address] | [address] | | + + + + + documented in this encounter Visit Diagnoses Not on filedocumented in this encounter"
--- OUTSIDE RECORDS SUMMARY | ~2019-09-04 | XMS | Encounter Summary ---
Demographics + + + | Address | [address] [place] [address] | | | [place] [address] | + + + | Home Phone [...] | | | | | , [place] [address] | | + + + + + Care Team Providers + +------+ + | Care Surgical Endoscopist Name | Role | Phone | + [...] as of this encounter Progress Notes Interface, Scarifier Operator In - 07/19/2006 3:05 AM PDTCLINIC DATE: 06/13/2002 ORTHOPEDIC CLINIC REFERRING PHYSICIAN: Eugene Vera D.O. [address] [place] [address] Mr. Sanchez is a new patient. He [...] to proceed. Martell Allen M.D. / KATTY [id number] / [id number] / [id number] / [id number] cc: Eugene Vera D.O. [address] [place], [place] [id number] signed by Jael George In at 07/19/2006 3:0 5 AM PDTdocumented in this encounter Plan of Treatment +--------+---------+ + + + | Date | Type | Specialty | Care Team | Description | +--------+---------+ + + + | 09/28/ | Office | Gastroenterology | Bridgette Rios, | | | 2019 | Visit | | [address] | | | | | | [place], [place] | | | | | | [address] | | | | | | [phone] | | | | | | | | +--------+---------+ + + + documented as of this encounter Visit Diagnoses Not on filedocumented in this encounter
--- OUTSIDE RECORDS SUMMARY | ~2019-09-04 | XMS | Encounter Summary ---
Demographics + + + | Address | [address] | | | [place] [address] | + + + | Home Phone [...] Team Providers + +------+ + | Care Cfd Engineer Name | Role | Phone | + +------+ + | Kirk French MD | PCP | Unavailable | + +------+ + Encounter Details +--------+ + + + + | Date | Type | Department | Care Team | Description | +--------+ + + + + | 06/19/ | Orders Only | [facility] | Fabrice Hylton, | Abnormal weight | | 2019 | | SYSTEM GENERIC OP | [address] | loss; Anxiety | | | | CONVERSION [address] [place], [place] | disorder; Chronic | | | | [address] [place], [place] | [address] | pain syndrome; | | | | [address] | | Obesity; Neuralgia | | | | [phone] | | and neuritis, | | | [...] | | | | | | [place] [address] | | | | | | [phone] | | | | | | | [...]
--- OUTSIDE RECORDS SUMMARY | ~2019-09-04 | XMS | Encounter Summary ---
Demographics + + + | Address | [address] | | | [place] [address] | + + + | Home Phone | | + + + | Preferred Language | Unknown | + + + | Marital Status | | + + + | Synagogue Affiliation | 1013 | + + + | Race | Unknown | + + + | Ethnic Group | Unknown | + + + Author + + + | Author | [employer] [facility] (Historical as of | | | 07-08-19) | + + + | Organization | [facility] (Historical as of | | | 07-08-19) [...] Providers + +------+ + | Care Legal Transcriber Name | Role | Phone | + +------+ + | Kirk French MD | PCP | | + +------+ + Encounter Details +--------+--------+ + + + | Date | Type | Department | Care Team | Description | +--------+--------+ + + + | 06/06/ | Refkathi | [facility] | Geri Bear, | | | 2019 | | Primary Care [address] | [facility] | | | | | [address] | | | | | | [place] | | | | | | [address] | | | | | | [phone] | | | +--------+--------+ + + + [...]
--- OUTSIDE RECORDS SUMMARY | ~2019-09-04 | XMS | Clinical Summary ---
Demographics + + + | Address | [address] [place] [address] | | | [place] [address] | + + + | Home Phone [...] | | | | | , [place] [address] | | + + + + + Care Team Providers + +------+ + | Care Litigation Services Manager Name | Role | Phone | + +------+ + | Darion Holden DO | PCP | | + +------+ + Source Comments [facility] is fully live on both [facility] Ambulatory and [facility] InPatient.[facility] Allergies + + + + + [...] | | 2018 | Visit | | [address] | | | | | | [place], [place] | | | | | | [address] | | | | | | [phone] | | | | | | | [...] | x | 11-Pre | 8 | [address] | | | | STATE | | sent | | [place], | | | | | | | | [place] | | | | | | | | [address] | | + +--------+ +--------+ + +--------+ | MEDICARE | MEDICA | xxxxxxxxxxx | 11/22/19 | [phone] | [address] | Medica | | | RE A & | | 10-Pre | 1 | [address] | [address] | | | [address] | | sent | | [place] | | | | | | | | [address] | | + +--------+ +--------+ + +--------+ | CITIZEN [place] [employer] | AARP | xxxxxxxxxx | 11/22/19 | [phone] | [address] | Indemn | | RETIRED PEOPLE | | | 10-Pre | 9 | [address] | ity | | | | | sent | | [place] | | | | | | | | [address] | | + +--------+ +--------+ + +--------+ + +--------+ +--------+ + + | Guarantor Name | Accoun | Relation to | Date | Phone | Billing Address | | | t Type | Patient | of | | | | | | | | | | + +--------+ +--------+ + + | Moe Sanchez | Person | Self [birth year] | [address] | | | al/Fam | | 1959 | [phone] | [place] | | | roxanne | | | 6 (Home) | [address] | + +--------+ +--------+ + + Advance Directives + + + + + | Type | Date Recorded | Patient | Explanation | | | | Real Estate Office Supervisor | | + + + + + | Advance | | | | | Directives and | | | | | Living Will | | | | + + + + + | Power of | | | | | Processing Specialist | | | | + + + + +
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
[2019-09-04] MEDS ORDERED: LOMOTIL TABLET1 EACH PO (15:39)
[2019-09-04] MEDS ORDERED: PROMETHAZINE12.5 M1 PO (16:47)
--- NOTE | 2019-09-05 13:01 | EKG ---
[facility] [address] [facility] [place] [address] Signed Atrial-paced rhythm Abnormal ECG When compared with ECG of 22-JUN-2019 01:43, Electronic atrial pacemaker has replaced Sinus rhythm Confirmed by NATALEE CEJA MD ([id number]) on 09/05/2019 1:01:07 PM Electronically Signed By: NATALEE CEJA MD 09/05/19 1301 PATIENT NAME: PINA GAY SARAH Electrocardiogram DATE OF : 58 PHYSICIAN: NATALEE CEJA MD REPORT #: [id number] REPORT IS CONFIDENTIAL AND NOT TO BE RELEASED WITHOUT AUTHORIZATION
== END 2019-09-04 17:02 | disposition home or self-care (01) ==
LOC: ED 15:20
DX: K58.9 Irritable bowel syndrome, unspecified (principal); I10 Essential (primary) hypertension; E78.00 Pure hypercholesterolemia, unspecified; Z87.891 Personal history of nicotine dependence; Z88.0 Allergy status to penicillin; Z88.5 Allergy status to narcotic agent; Z88.1 Allergy status to other antibiotic agents; Z79.899 Other long term (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; Z79.82 Long term (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
CPT/HCPCS: 71045; 80053; 83735; 84484; 85025; 85379; 93005; 93010; 96361; 96374; 96375; 99284-25; J2405; J2550; J7120

== ENCOUNTER 2019-09-09 20:58 | Emergency (ER) | payer MEDICARE ==
[~2019-09-09] VITALS: Ht 193 cm; Wt 99.8 kg
--- OUTSIDE RECORDS SUMMARY | ~2019-09-09 | XMS | Encounter Summary ---
Demographics + + + | Address | [address] | | | [place] [address] | + + + | Home Phone | | + + + | Preferred Language | Unknown | + + + | Marital Status | | + + + | Sikh Affiliation | 1013 | + + + | Race | Unknown | + + + | Ethnic Group | Unknown | + + + Author + + + | Author | [employer] [facility] (Historical as of | | | 07-08-19) | + + + | Organization | [facility] (Historical as of | | | 07-08-19) | + + + | Address | Unknown | + + + | Phone | Unavailable | + + + Support + + +---------+ + | Name | Relationship | Address | Phone | + + +---------+ + | Maria Isabel Sanchez | ECON | Unknown | | + + +---------+ + Care Team Providers + +------+ + | Care Car Escort Name | Role | Phone | + +------+ + | Kirk French MD | PCP | | + +------+ + Reason for Visit +--------+ + | Reason | Comments | +--------+ + | Other | [place] thornton | +--------+ + Encounter Details +--------+ + + + + | Date | Type | Department | Care Team | Description | +--------+ + + + + | 06/12/ | Documentati | [facility] | Geri Bear, | Other ([place] | | 2019 | on Only | Primary Care [address] | LIGHT ARMORED VEHICLE OFFICER | hillary thornton) | | | | [address] | | | | | | [place], [place] | | | | | | [address] | | | | | | [phone] | | | +--------+ + + + + Social History + +--------+ +--------+ + | Tobacco Use | Types | Packs/Day | Years | Date | | | | | Used | | + +--------+ +--------+ + | Former Smoker | Cigars | | | Quit: 02/12/1996 | + +--------+ +--------+ + + +---+---+---+ | Smokeless Tobacco: | | | | | Never Used | | | | + +---+---+---+ + + | Comments: quit smoking cigars 20 yr ago (smoked "one cigar a year" | + + + + +---------+ + | Alcohol Use | Drinks/We | oz/Week | Comments | | | ek | | | + + +---------+ + | No | 0 | 0.0 | occ | | | Standard | | | | | drinks or | | | | | | | | | | equivalen | | | | | t | | | + + +---------+ + + + + | Sex Assigned at | Date Recorded | | | | + + + | Not on file | | + + + as of this encounter Plan of Treatment Not on fileas of this encounter Visit Diagnoses Not on filein this encounter
--- OUTSIDE RECORDS SUMMARY | ~2019-09-09 | XMS | Clinical Summary ---
Demographics + + + | Address | [address] [place] [address] | | | [place] [address] | + + + | Home Phone [...] + + + | Andreia Sanchez | ECON | [place] | | | | | [place] | | | | | , [place] [address] | | + + + + + Care Team Providers + +------+ + | Care Gear Shaper Set Up Operator Name | Role | Phone | + +------+ + | Darion Holden DO | PCP | | + +------+ + Source Comments [facility] is fully live on both [facility] and [facility] InPatient.[facility] Allergies + + + + + + [...] + + | Hydrocodone-Acetamin | | | 03/15/20 | | | ophen | | | [...] by mouth. 2 | | 0 | 03/ | | Activ | | (OXYCONTIN) 20 mg | tablets two to three | | | 04/10 | | e | | Oral Tablet [...] (ZESTRIL) 20 mg Oral | once daily. /2 | | | | | e | [...] (SALMON | once daily. | | | 04/10 | | e | | OIL-1000 ORAL) | | | | 11 | | | + + + +---------+------+------+-------+ Active Problems + + + | Problem | Noted Date | + + + | Bradycardia | 02/09/2011 | + + + | Pacemaker Medtronic dual chamber | 02/09/2011 | + + + Social History + +-------+ [...] Gastroenterology | Bridgette Rios, | | | 2018 | Visit | | [address] | | | | | | [place], [place] | | | | | | [address] | | | | | | [phone] | | | | | | | | +--------+---------+ + + + + + + + + | Health Maintenance | Due Date | Last Done | Comments | + + + + + | Influenza (Flu) | | 07/23/2016, 06/24/2015, | | | vaccination (#1) | 9 | 09/10/2009 | | + + + + + | Pneumococcal | Aged Out | | No longer eligible | | vaccination | | | based on patient's | | | | | age to complete this | | | | | topic | + + + + + Results [...] | + +--------+ +--------+ + +--------+ | BLUE CROSS BLUE | BCBS | xxxxxxxxxxx | 11/22/19 | [phone] | [address] | PPO | | SHIELD | OUT OF | x | 11-Pre | 8 | [address] | | | | STATE | | sent | | [place], | | | | | | | | [place] | | | | | | | | [address] | | + +--------+ +--------+ + +--------+ | MEDICARE | MEDICA | xxxxxxxxxxx | 11/22/19 | [phone] | [address] | Medica | | | RE A & | | 10-Pre | 1 | [address] | re | | | B | | sent | | [place] | | | | | | | | [address] | | + +--------+ +--------+ + +--------+ | ESTONIAN [employer]N | AARP | xxxxxxxxxx | 11/22/19 | [phone] | [address] | Indemn | | RETIRED PEOPLE | | | 10-Pre | 9 | [id number] | ity | | | | | sent | | [place] | | | | | | | | [address] | | + +--------+ +--------+ + +--------+ + +--------+ +--------+ + + | Guarantor Name | Accoun | Relation to | Date | Phone | Billing Address | | | t Type | Patient | of | | | | | | | | | | + +--------+ +--------+ + + | Moe Sanchez | Person | Self | [birth year] | [address] | | | al/Fam | | 1959 | [phone] | [place] | | | [place] | | | [address] (Home) | [address] | + +--------+ +--------+ + + Advance Directives + + + + + | Type | Date Recorded | Patient | Explanation | | | | Manager Terminal | | + + + + + | Advance | | | | | Directives and | | | | | Living Will | | | | + + + + + | Power of | | | | | Helper Marble Finisher | | | | + + + + +
--- OUTSIDE RECORDS SUMMARY | ~2019-09-09 | XMS | Encounter Summary ---
Demographics + + + | Address | [address] [place] [address] | | | [place] [address] | + + + | Home Phone | | + + + | Preferred Language | Unknown | + + + | Marital Status | | + + + | Caodaism Affiliation | Unknown | + + + | Race | White | + + + | Ethnic Group | Not or | + + + Author + + + | Author | [facility] | + + + | Organization | [facility] | + + + | Address | Unknown | + + + | Phone | Unavailable | + + + Support + + + + + | Name | Relationship | Address | Phone | + + + + + | Andreia Sanchez | ELIEZER | [place] | | | | | [place] | | | | | , [place] [address] | | + + + + + Care Team Providers + +------+ + | Care Azure Developer Name | Role | Phone | [...] Encounter | Non-Invasive Testing | [address] | | | | | at [facility] | [facility] | | | | | [address] | [place] [address] | | | | | [facility] | | | | | | Mailcode: [id number] Yao | | | | | | [facility] | | | | | | [facility] | | | | | | [place] [address] | | | | | | [phone] | | | +--------+ + + + [...] (ZESTRIL) 20 mg Oral | once daily. 1 | | | | | | Tablet [...] | 0 | 03/15/20 | | | | once daily. | [...] Caps by mouth | | 0 | /15/20 | | | FATTY ACIDS (SALMON | [...] | | 2019 | Visit | | [address] | | | | | | [place], [place] | | | | | | [address] | | | | | | [phone] | | | | | | | [...] view image for the detailed interpretation from [employer] results. | CARDIOLOGY | + + + + + + + + | Performing | Address | City/State/Zipcode | Phone Number | | Organization | | | | + + + + + | [facility] | [address] | [place], [place] | | | CARDIOLOGY | [address] | [address] | | + + + + + documented in this encounter Visit Diagnoses Not on filedocumented in this encounter"
--- OUTSIDE RECORDS SUMMARY | ~2019-09-09 | XMS | Encounter Summary ---
Demographics + + + | Address | [address] [place] [address] | | | [place] [address] | + + + | Home Phone | | + + + | Preferred Language | Unknown | + + + | Marital Status | | + + + | Anglican Affiliation | Unknown | + + + | Race | White | + + + | Ethnic Group | Not or | + + + Author + + + | Author | [facility] | + + + | Organization | [facility] | + + + | Address | Unknown | + + + | Phone | Unavailable | + + + Support + + + + + | Name | Relationship | Address | Phone | + + + + + | Andreia Sanchez | ELIEZER | [address] | | | | | [place] | | | | | , [place] [address] | | + + + + + Care Team Providers + +------+ + | Care Lamination Technician Name | Role | Phone | [...] [place] | | | | | at [facility] | [facility] | | | | | [address] | [place] [address] | | | | | [facility] | | | | | | Mailcode: OP12B Yao | | | | | | [facility] | | | | | | [facility] | | | | | | [place] [address] | | | | | | [phone] | | | +--------+ + + + [...] | | 2019 | Visit | | [address] | | | | | | [place], [place] | | | | | | [address] | | | | | | [phone] | | | | | | | [...] view image for the detailed interpretation from [employer] results. | CARDIOLOGY | + + + + + + + + | Performing | Address | City/State/Zipcode | Phone Number | | Organization | | | | + + + + + | [facility] | [address] | [place], [place] | | | CARDIOLOGY | [address] | [address] | | + + + + + documented in this encounter Visit Diagnoses Not on filedocumented in this encounter"
--- OUTSIDE RECORDS SUMMARY | ~2019-09-09 | XMS | Encounter Summary ---
Demographics + + + | Address | [address] | | | [place] [address] | + + + | Home Phone [...] Team Providers + +------+ + | Care Lead Ramp Service Man Name | Role | Phone | + +------+ + | Kirk French MD | PCP | Unavailable | + +------+ + Encounter Details +--------+ + + + + | Date | Type | Department | Care Team | Description | +--------+ + + + + | 06/19/ | Orders Only | [facility] | Fabrice Hylton, | Abnormal weight | | 2019 | | SYSTEM GENERIC OP | [address] | loss; Anxiety | | | | CONVERSION [address] [place], [place] | disorder; Chronic | | | | [address] [place], [place] | [address] | pain syndrome; | | | | [address] | | Obesity; Neuralgia | | | | [phone] | | and neuritis, | | | [...] | | | | | | [place] [address] | | | | | | [phone] | | | | | | | | +--------+ + + + + | 11/20/ | Implant | Cardiology | Daljit Singletary, | Remote Device | | 2019 | Monitor | | MD [place] | Interrogation | | | | | 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
--- OUTSIDE RECORDS SUMMARY | ~2019-09-09 | XMS | Encounter Summary ---
Demographics + + + | Address | [address] | | | [place] [address] | + + + | Home Phone [...] Team Providers + +------+ + | Care Link Wire Fabric Machine Tender Name | Role | Phone | + +------+ + | Kirk French MD | PCP | Unavailable | + +------+ + Reason for Visit + + + | Reason | Comments | + + + | Lab Order | | + + + Encounter Details +--------+ + + + + | Date | Type | Department | Care Team | Description | +--------+ + + + + | 06/22/ | Telephone | [facility] | Emmanuel Daniel MD | Lab Order | | 2019 | | GASTROENTEROLOGY | [address], [place] | | | | | [address] [place] | [address] [place], [place] | | | | | [address] [place], [place] | [address] | | | | | [address] | | | | | | [phone] | | | +--------+ + + + [...] | | | | | | [place] [address] | | | | | | [phone] | | | | | | | | +--------+ + + + + | 11/20/ | Implant | Cardiology | Daljit Singletary, | Remote Device | | 2019 | Monitor | | MD [address] | Interrogation | | | | | [facility], | (Primary Dx); | | | | | [place] [address] | Presence of | | | | | [phone] | permanent cardiac | | | | [...]
--- OUTSIDE RECORDS SUMMARY | ~2019-09-09 | XMS | Clinical Summary ---
Demographics + + + | Address | [address] | | | [place] [address] | + + + | Home Phone | | + + + | Preferred Language | Unknown | + + + | Marital Status | | + + + | Denominational Affiliation | 1013 | + + + | Race | Unknown | + + + | Ethnic Group | Unknown | + + + Author + + + | Author | [facility] (Historical as of | | | 07-08-19) | + + + | Organization | [facility] (Historical as of | | | 07-08-19) [...] Providers + +------+ + | Care Offline Editor Name | Role | Phone | [...] | | | 2018 | | | [employer] | | +--------+ + + + + | 06/23/ | Documentati | | Geri Bear, | [facility] | 2018 | on Only | | [employer] | visit notes) | +--------+ + + + + | 06/12/ | Documentati | | Geri Bear, | Other ([facility] | | 2018 | on Only | | [employer] | hillary thornton) | +--------+ + + + + from [...] + | AUTO INSURANCE | AUTO | [id number] | | | | | | INSURA | | | | | | | NCE | | | | | | | GENERI | | | | | | | C | | | | | + +--------+ +------+-------+ + | AUTO INSURANCE | AUTO | [id number] | | | | | | INSURA | [id number] | | | | | | NCE | | | | | | | GENERI | | | | | | | C | | | | | + +--------+ +------+-------+ + | MEDICARE | MEDICA | [id number] | | | [address] | | | RE | | | | [place] [address] | | | IP-OP | | | | | + +--------+ +------+-------+ + | [facility] | [place] | [id number] | | | | | | | [...] | Self | [birth year] | Home: | [address] | | | al/Fam | | 1959 | +- | [place], [place] | | | [place] | | | [address] | [address] | + +--------+ +--------+ + + | AMILCAR GAY | Third | Self | [birth year] | Home: | [address] | | | Libertarian | | 1959 | +- | [place] | | | [place] | | | [address] | [address] | | | ity | | | | | + +--------+ +--------+ + + | AMILCAR GAY | Third | Self | [birth year] | Home: | [address] | | | Libertarian | | 1959 | +- | [place] | | | [place] | | | [address] | [address] | | | ity | | | | | + +--------+ +--------+ + +
--- OUTSIDE RECORDS SUMMARY | ~2019-09-09 | XMS | Encounter Summary ---
Demographics + + + | Address | [address] [place] [address] | | | [place] [address] | + + + | Home Phone [...] | | | | | , [place] [address] | | + + + + + Care Team Providers + +------+ + | Care Sales Secretary Name | Role | Phone | + [...] as of this encounter Progress Notes Interface, Recreation Specialist In - 07/19/2006 3:05 AM PDTCLINIC DATE: 06/13/2002 ORTHOPEDIC CLINIC REFERRING PHYSICIAN: Eugene Vera D.O. [address] [place] [address] Mr. Sanchez is a new patient. He [...] desires to proceed. Martell Allen M.D. / KATTY [id number] / [id number] / [id number] / [id number] cc: Eugene Vera D.O. [address] [place], [place] [id number] signed by Jael George In at 07/19/2006 3:0 5 AM PDTdocumented in this encounter Plan of Treatment +--------+---------+ + + + | Date | Type | Specialty | Care Team | Description | +--------+---------+ + + + | 09/28/ | Office | Gastroenterology | Bridgette Rios, | | | 2019 | Visit | | [address] | | | | | | [place], [place] | | | | | | [address] | | | | | | [phone] | | | | | | | | +--------+---------+ + + + documented as of this encounter Visit Diagnoses Not on filedocumented in this encounter
--- OUTSIDE RECORDS SUMMARY | ~2019-09-09 | XMS | Encounter Summary ---
Demographics + + + | Address | [address] | | | [place] [address] | + + + | Home Phone [...] Providers + +------+ + | Care Sales And Marketing Executive Name | Role | Phone | [...] 2019 | | GASTROENTEROLOGY | [address], [place] | | | | | [address] [place] | [address] [place], [place] | | | | | [address] [place], [place] | [address] | | | | | [address] | | | | | | [phone] | | | +--------+ + + + [...] | | | | | | [place] [address] | | | | | | [phone] | | | | | | | | +--------+ + + + + | 11/20/ | Implant | Cardiology | Daljit Singletary, | Remote Device | | 2019 | Monitor | | MD [address] [facility] | Interrogation | | | | | [place], | (Primary Dx); | | | | | [place] [address] | Presence of | | | | | [phone] | permanent cardiac | | | | [...]
--- OUTSIDE RECORDS SUMMARY | ~2019-09-09 | XMS | Encounter Summary ---
Demographics + + + | Address | [address] | | | [place] [address] | + + + | Home Phone [...] Team Providers + +------+ + | Care Defect Cutter Name | Role | Phone | [...] | | GASTROENTEROLOGY | [address] [place] | Recommendations | | | | [address] [place] | [address] [place], [place] | | | | | [address] [place], [place] | [address] | | | | | [address] | | | | | | [phone] | | | +--------+ + + + [...] | | | | | | [place] [address] | | | | | | [phone] | | | | | | | | +--------+ + + + + | 11/20/ | Implant | Cardiology | Daljit Singletary, | Remote Device | | 2018 | Monitor | | MD [address] | Interrogation | | | | | [place], | (Primary Dx); | | | | | [place] [address] | Presence of | | | | | [phone] | permanent cardiac | | | | [...]
--- OUTSIDE RECORDS SUMMARY | ~2019-09-09 | XMS | Clinical Summary ---
Demographics + + + | Address | [address] [place] [address] | | | [place] [address] | + + + | Home Phone [...] | | | | | , [place] [address] | | + + + + + Care Team Providers + +------+ + | Care President Trust Company Name | Role | Phone | + +------+ + | Darion Holden DO | PCP | | + +------+ + Source Comments [facility] is fully live on both [facility] Ambulatory and [facility] InPatient[facility] Allergies + + + + [...] | | 2018 | Visit | | [address] | | | | | | [place], [place] | | | | | | [address] | | | | | | [phone] | | | | | | | [...] | x | 11-Pre | 8 | [address] | | | | STATE | | sent | | [place], | | | | | | | | [place] | | | | | | | | [address] | | + +--------+ +--------+ + +--------+ | MEDICARE | MEDICA | xxxxxxxxxxx | 11/22/19 | [phone] | [address] | Medica | | | RE A & | | 10-Pre | 1 | [address] | re | | | B | | sent | | [place] | | | | | | | | [address] | | + +--------+ +--------+ + +--------+ | NIGERIAN ASSN | AARP | xxxxxxxxxx | 11/22/19 | [phone] | [address] | Indemn | | RETIRED PEOPLE | | | 10-Pre | 9 | [id number] | ity | | | | | sent | | [place] | | | | | | | | [address] | | + +--------+ +--------+ + +--------+ + +--------+ +--------+ + + | Guarantor Name | Accoun | Relation to | Date | Phone | Billing Address | | | t Type | Patient | of | | | | | | | | | | + +--------+ +--------+ + + | Moe Sanchez | Person | Self | [birth year] | [address] | | | al/Fam | | 1959 | [phone] | [place] | | | roxanne | | | 6 (Home) | [address] | + +--------+ +--------+ + + Advance Directives + + + + + | Type | Date Recorded | Patient | Explanation | | | | Accounting Tutor | | + + + + + | Advance | | | | | Directives and | | | | | Living Will | | | | + + + + + | Power of | | | | | Chip Tester | | | | + + + + +
--- OUTSIDE RECORDS SUMMARY | ~2019-09-09 | XMS | Encounter Summary ---
Demographics + + + | Address | [address] | | | [place] [address] | + + + | Home Phone [...] Team Providers + +------+ + | Care Oliver Filter Operator Name | Role | Phone | + +------+ + | Kirk French MD | PCP | Unavailable | + +------+ + Encounter Details +--------+ + + + + | Date | Type | Department | Care Team | Description | +--------+ + + + + | 06/19/ | Orders Only | [facility] | Fabrice Hylton, | Abnormal weight | | 2019 | | SYSTEM GENERIC OP | [address] | loss; Anxiety | | | | CONVERSION [address] | [address] [place], [place] | disorder; Chronic | | | | [address] [place], [place] | [address] | pain syndrome; | | | | [address] | | Obesity; Neuralgia | | | | [phone] | | and neuritis, | | | [...] | | | | | | [place] [address] | | | | | | [phone] | | | | | | | | +--------+ + + + + | 11/20/ | Implant | Cardiology | Daljit Snigletary, | Remote Device | | 2019 | Monitor | | MD [address]iqu[address] | Interrogation | | | | | [facility] [place], | (Primary Dx); | | | | | [place] [address] | Presence of | | | | | [phone] | permanent cardiac | | | | [...]
--- OUTSIDE RECORDS SUMMARY | ~2019-09-09 | XMS | Encounter Summary ---
Demographics + + + | Address | [address] | | | [place] [address] | + + + | Home Phone [...] Team Providers + +------+ + | Care Website Designer Name | Role | Phone | [...] | 08/30/ | Refill | [facility] | Manolo Kirk | Medication Refill | | 2019 | | [facility] | MD [address] | | | | | [address] | [address] | | | | | [address] | [place] [address] | | | | | [place], [place] | [phone] | | | | | [address] | | | | | | [phone] | | | +--------+--------+ + + + [...] | | | | | | [place] [address] | | | | | | [phone] | | | | | | | | +--------+ + + + + | 11/20/ | Implant | Cardiology | Daljit Singletary, | Remote Device | | 2018 | Monitor | | MD [address] | Interrogation | | | | | [facility], | (Primary Dx); | | | | | [place] [address] | Presence of | | | | | [phone] | permanent cardiac | | | | [...]
--- OUTSIDE RECORDS SUMMARY | ~2019-09-09 | XMS | Encounter Summary ---
Demographics + + + | Address | [address] | | | [place] [address] | + + + | Home Phone [...] Team Providers + +------+ + | Care Kersey Department Supervisor Name | Role | Phone [...] + + | 08/30/ | Refill | [facility] | Manolo Kirk | Medication Refill | | 2019 | | [facility] | MD [address] | | | | | PR[address] | [address] | | | | | [address] | [place] [address] | | | | | [place], [place] | [phone] | | | | | [address] | | | | | | [phone] | | | +--------+--------+ + + + [...] | | | | | | [place] [address] | | | | | | [phone] | | | | | | | | +--------+ + + + + | 11/20/ | Implant | Cardiology | Daljit Singletary, | Remote Device | | 2018 | Monitor | | MD [address] | Interrogation | | | | | [facility] [place], | (Primary Dx); | | | | | [place] [address] | Presence of | | | | | [phone] | permanent cardiac | | | | [...]
--- OUTSIDE RECORDS SUMMARY | ~2019-09-09 | XMS | Encounter Summary ---
Demographics + + + | Address | [address] [place] [address] | | | [place] [address] | + + + | Home Phone [...] | | | | | , [place] [address] | | + + + + + Care Team Providers + +------+ + | Care Ant[employer] Maintenance Worker Name | Role | Phone [...] as of this encounter Progress Notes Interface, Consumer Banker In - 07/19/2006 3:05 AM PDTCLINIC DATE: 06/13/2002 [facility] REFERRING PHYSICIAN: Eugene Vera D.O. [address] [place] [address] Mr. Sanchez is a new patient. He [...] to proceed. Martell Allen M.D. / KATTY [id number] / [id number] / [id number] / [id number] cc: Eugene Vera D.O. [address] [place], [place] [address]Lowfregvfflgsp signed by Jael George In at 07/19/2006 3:0 5 AM PDTdocumented in this encounter Plan of Treatment +--------+---------+ + + + | Date | Type | Specialty | Care Team | Description | +--------+---------+ + + + | 09/28/ | Office | Gastroenterology | Bridgette Rios, | | | 2019 | Visit | | [address] | | | | | | [place], [place] | | | | | | [address] | | | | | | [phone] | | | | | | | | +--------+---------+ + + + documented as of this encounter Visit Diagnoses Not on filedocumented in this encounter
--- OUTSIDE RECORDS SUMMARY | ~2019-09-09 | XMS | Encounter Summary ---
Demographics + + + | Address | [address] | | | [place] [address] | + + + | Home Phone [...] + + | 08/31/ | Refill | [facility] | Manolo Kirk | Medication Refill | | 2019 | | [facility] | MD [address] | | | | | [address] | [address] | | | | | [address] | [place] [address] | | | | | [place], [place] | [phone] | | | | | [address] | | | | | | [phone] | | | +--------+--------+ + + + [...] | | | | | | [place] [address] | | | | | | [phone] | | | | | | | | +--------+ + + + + | 11/20/ | Implant | Cardiology | Daljit Singletary, | Remote Device | | 2018 | Monitor | | MD [address] | Interrogation | | | | | [facility], | (Primary Dx); | | | | | [place] [address] | Presence of | | | | | [phone] | permanent cardiac | | | | [...]
--- OUTSIDE RECORDS SUMMARY | ~2019-09-09 | XMS | Encounter Summary ---
Demographics + + + | Address | [address] | | | [place] [address] | + + + | Home Phone [...] Providers + +------+ + | Care Curriculum And Assessment Coordinator Name | Role | Phone | [...] GASTROENTEROLOGY | [address] [place] | Recommendations | | | | [address] | [address] [place], [place] | | | | | [address] [place], [place] | [address] | | | | | [address] | | | | | | [phone] | | | +--------+ + + + [...] | | | | | | [place] [address] | | | | | | [phone] | | | | | | | | +--------+ + + + + | 11/20/ | Implant | Cardiology | Daljit Singletary, | Remote Device | | 2018 | Monitor | | MD [address] | Interrogation | | | | | [facility], | (Primary Dx); | | | | | [place] [address] | Presence of | | | | | [phone] | permanent cardiac | | | | [...]
--- OUTSIDE RECORDS SUMMARY | ~2019-09-09 | XMS | Encounter Summary ---
Demographics + + + | Address | [address] [place] [address] | | | [place] [address] | + + + | Home Phone [...] | | | | | , [place] [address] | | + + + + + Care Team Providers + +------+ + | Care Car Restorer Name | Role | Phone | [...] | Center at [facility] [address] | Gastroenterology | Gastroenterology | | | [address] | | | | | | Mailcode: [place] | | | | | | [facility] and | | | | | | [facility], [address] | | | | | | [place], [place] | | | | | | [address] | | | | | | [phone] | | | +--------+ + + + [...] | | 2019 | Visit | | [address] | | | | | | [place], [place] | | | | | | [address] | | | | | | [phone] | | | | | | | | +--------+---------+ + + + documented as of this encounter Visit Diagnoses Not on filedocumented in this encounter"
--- OUTSIDE RECORDS SUMMARY | ~2019-09-09 | XMS | Encounter Summary ---
Demographics + + + | Address | [address] | | | [place] [address] | + + + | Home Phone [...] Providers + +------+ + | Care Delivery Room Clerk Name | Role | Phone [...] | 09/04/ | Telephone | [facility] | Emmanuel Daniel MD | Other | | 2019 | | GASTROENTEROLOGY | [address] [place] | | | | | [address] | [address] [place], [place] | | | | | [address] [place], [place] | [address] | | | | | [address] | | | | | | [phone] | | | +--------+ + + + [...] | | | | | | [place] [address] | | | | | | [phone] | | | | | | | | +--------+ + + + + | 11/20/ | Implant | Cardiology | Daljit Singletary, | Remote Device | | 2019 | Monitor | | MD [address] | Interrogation | | | | | [facility] [place], | (Primary Dx); | | | | | [place] [address] | Presence of | | | | | [phone] | permanent cardiac | | | | [...]
--- OUTSIDE RECORDS SUMMARY | ~2019-09-09 | XMS | Encounter Summary ---
Demographics + + + | Address | [address] [place] [address] | | | [place] [address] | + + + | Home Phone [...] | | | | | , [place] [address] | | + + + + + Care Team Providers + +------+ + | Care Purchasing Coordinator Name | Role | Phone | [...] | | [facility] | | | | [place], [place] | | | | | | [address] | | | | | | [phone] | | | +--------+------+ + + + [...] | | 2018 | Visit | | [address] | | | | | | [place], [place] | | | | | | [address] | | | | | | [phone] | | | | | | | [...] ([facility]) | [facility] | | [facility] [address] | REGIONAL | | [place] [address] | LABORATORY | + + + + + + + + | Performing | Address | City/State/Zipcode | Phone Number | | Organization | | | | + + + + + | [facility] | [address] | [place] [address] | | | LABORATORY | | | [...] | TIME | NA | Hrs:mins | ERAL | | | | | | REGIONAL [...] RLB ([facility]) | | | [facility] [place] [address] | | | [place] [address] | | + + + + + + + + | Performing | Address | City/State/Zipcode | Phone Number | | Organization | | | | + + + + + | [facility] | [address] | [place] [address] | | | LABORATORY | | | [...] | | | DEPARTMENT | | | YEMENI | | | OF | | | [...] | + + + + + | [facility] | [address] | [place] [address] | | | PATHOLOGY | [address] | | | + + + + + documented in this encounter Visit Diagnoses + + | Diagnosis | + + | Chest pain Chest pain, unspecified | + + | Bradycardia Other specified cardiac dysrhythmias | + + documented in this encounter"
--- OUTSIDE RECORDS SUMMARY | ~2019-09-09 | XMS | Encounter Summary ---
Demographics + + + | Address | [address] | | | [place] [address] | + + + | Home Phone [...] Providers + +------+ + | Care Communication Specialist Name | Role | Phone | [...] + + | 07/13/ | Telephone | [facility] | Kirk French | Referral Question | | 2019 | | [facility] | MD [address] | | | | | PR[address] | [address] | | | | | [address] | [place] [address] | | | | | [place], [place] | [phone] | | | | | [address] | | | | | | [phone] | | | +--------+ + + + [...] | | | | | | [place] [address] | | | | | | [phone] | | | | | | | | +--------+ + + + + | 11/20/ | Implant | Cardiology | Daljit Singletary, | Remote Device | | 2019 | Monitor | | [address] [facility] | Interrogation | | | | | [place], | (Primary Dx); | | | | | [place] [address] | Presence of | | | | | [phone] | permanent cardiac | | | | [...]
--- OUTSIDE RECORDS SUMMARY | ~2019-09-09 | XMS | Encounter Summary ---
Demographics + + + | Address | [address] | | | [place] [address] | + + + | Home Phone [...] Providers + +------+ + | Care Toddler Guide Name | Role | Phone | [...] 2019 | | GASTROENTEROLOGY | [address] [place] | | | | | [address] | [address] [place], [place] | | | | | [address] [place], [place] | [address] | | | | | [address] | | | | | | [phone] | | | +--------+ + + + [...] | | | | | | [place] [address] | | | | | | [phone] | | | | | | | | +--------+ + + + + | 11/20/ | Implant | Cardiology | Daljit Singletary, | Remote Device | | 2019 | Monitor | | MD [address] [facility] | Interrogation | | | | | [facility], | (Primary Dx); | | | | | [place] [address] | Presence of | | | | | [phone] | permanent cardiac | | | | [...]
--- OUTSIDE RECORDS SUMMARY | ~2019-09-09 | XMS | Encounter Summary ---
Demographics + + + | Address | [address] [place] [address] | | | [place] [address] | + + + | Home Phone [...] | | | | | , [place] [address] | | + + + + + [...] Chest pain | Farooq Almaguer, | [address] | | | | | Bradycardia | DO [address] | [place] | | | | | Procedures | [address] | Mailcode: | | | | | | Palak Desai | TERRI [place] | | | | | TRANSTHORACI | [facility] [place] | for Health | | | | | C | [address] | and Healing, | | | | | ECHOCARDIOGR | Phone: | Building [address] | | | | | AM, ADULT | [phone] | [place], [place] | | | | | | Fax: | [address] | | | | | | [phone] | Phone: | | | | | | | [phone] | +--------+--------+ + + + + Reason [...] | | | | | | | [place] [address] | | | | | | | Phone: | | | | | | | [phone] | | | | | | | Fax: | | | | | | | [phone] | | +--------+--------+ + + + + Encounter Details +--------+---------+ + + + | Date | Type | Department | Care Team | Description | +--------+---------+ + + + | 02/03/ | Office | Cardiology General | Arlette Drew, | Chest pain (Primary | | 2010 | Visit | at [facility] [address] | MD | Dx); Bradycardia; | | | | [address] Mailcode: | | Pacemaker | | | | [facility] for | | | | | | Health and Healing, | | | | | | | | | | | | Floor [place], [place] | | | | | | [address] | | | | | | [phone] | | | +--------+---------+ + + + [...] per Dr. Drew's note. Farooq Jamil DO Podiatry Doctor Clinical perlite grinder/ Division of Cardiovascular Medicine ajaira Vaz RN - 02/09/2011 12:59 PM PDT PACEMAKER HISTORY Primary Care Provider: Darion Holden DO Seater Grinder: Arlette Drew MD Moe Sanchez is a [...] chamber permanent pacemaker implantation on 06/14/09 in [place], Chronic smoker, mild DIDIER, bip olar disorder with anxiety who presents for second opinion regarding his syncopal episodes. Pt. started noticing dizzy spells and episodes of syncope about 3 years ago , pacemaker was put at the recommendation of Seater Grinder Dr. Singletary from [place]. [place]. Pt. states lala bhatti was put>1 [...] form tilt table testing but NA at [facility] May need to involve [...] Dr. Omero DREW MD CARDIOLOGY - GENERAL [address] Mailcode: Ch[facility], 9th [facility] [address] documented in this en counter Plan of Treatment +--------+---------+ + + + | Date | Type | Specialty | Care Team | Description | +--------+---------+ + + + | 09/28/ | Office | Gastroenterology | Bridgette Rios, | | | 2018 | Visit | | [address] | | | | | | [place], [place] | | | | | | [address] | | | | | | [phone] | | | | | | | [...] + + + | RLB ([facility]) | [facility] | | [facility] [address] [facility] | REGIONAL | | [place] [address] | LABORATORY | + + + + + + + + | Performing | Address | City/State/Zipcode | Phone Number | | Organization | | | | + + + + + | [facility] | [address] | [place] [address] | | | LABORATORY | | | [...] RLB ([facility] [address] [facility]) | | | [facility] [address] | | | [place] [address] | | + + + + + + + + | Performing | Address | City/State/Zipcode | Phone Number | | Organization | | | | + + + + + | [facility] | [address] | [place] [address] | | | LABORATORY | | | [...] | | | DEPARTMENT | | | [place] | | | OF | | | [...] | + + + + + | [facility] | [address] | [place] [address] | | | PATHOLOGY | [address] | | | + + + + + EJECTION FRACTION (02/03/2011 3:33 PM PDT) + +-------+ + + + | Component | Value | Ref Range | Performed | Pathologist | | | | | At | Signature | + +-------+ + + + | BIPLANE, EF | 59.1 | | [facility] DEPT | | | | | | [...] DEPT OF | [address] | [place], [place] | | | CARDIOLOGY | [address] | [address] | | + + + + + EJECTION FRACTION (02/03/2011 3:33 PM PDT) + +-------+ + + + | Component | Value | Ref Range | Performed | Pathologist | | | | | At | Signature | + +-------+ + + + | BIPLOW, EF | 59.1 | | [facility] DEPT [...] + | [facility] DEPT OF | [address] | [place], [place] | | | CARDIOLOGY | [address] | [address] | | + + + + + [...] view image for the detailed interpretation from [facility] results. | CARDIOLOGY | + + + + + + + + | Performing | Address | City/State/Zipcode | Phone Number | | Organization | | | | + + + + + | [facility] DEPT OF | [address] | [place], [place] | | | CARDIOLOGY | [address] | [address] | | + + + + + documented in this encounter Visit Diagnoses + + | Diagnosis | + + | Chest pain - Primary Chest pain, unspecified | + + | Bradycardia Other specified cardiac dysrhythmias | + + | Pacemaker Cardiac pacemaker in situ | + + documented in this encounter
--- OUTSIDE RECORDS SUMMARY | ~2019-09-09 | XMS | Encounter Summary ---
Demographics + + + | Address | [address] | | | [place] [address] | + + + | Home Phone | | + + + | Preferred Language | Unknown | + + + | Marital Status | | + + + | Yazidi Affiliation | 1013 | + + + | Race | Unknown | + + + | Ethnic Group | Unknown | + + + Author + + + | Author | [facility] (Historical as of | | | 07-08-19) | + + + | Organization | [facility] ([facility]ical as of | | | 07-08-19) [...] + | 06/23/ | Documentati | [facility] | Geri Bear, | Other (st. gu[address] | | 2019 | on Only | Primary Care [address] | DEPARTMENT HEAD | visit notes) | | | | [address] | | | | | | [place], [place] | | | | | | [address] | | | | | | [phone] | | | +--------+ + + + [...]
--- OUTSIDE RECORDS SUMMARY | ~2019-09-09 | XMS | Encounter Summary ---
Demographics + + + | Address | [address] | | | [place] [address] | + + + | Home Phone [...] Providers + +------+ + | Care Staple Laster Name | Role | Phone | + [...] | 07/31/ | Telephone | [facility] | Silvia, | AFSHAN | | 2019 | | CARDIOLOGY [address] | [address] | | | | | [place], | [place], | | | | | [place] [address] | [place] [address] | | | | | [phone] | [phone] | | | | | | | [...] | | | | | | [place] [address] | | | | | | [phone] | | | | | | | | +--------+ + + + + | 11/20/ | Implant | Cardiology | Daljit Singletary, | Remote Device | | 2019 | Monitor | | MD [address] | Interrogation | | | | | [facility], | (Primary Dx); | | | | | [place] [address] | Presence of | | | | | [phone] | permanent cardiac | | | | [...]
--- OUTSIDE RECORDS SUMMARY | ~2019-09-09 | XMS | Encounter Summary ---
Demographics + + + | Address | [address] [place] [address] | | | [place] [address] | + + + | Home Phone [...] | | | | | , [place] [address] | | + + + + + Care Team Providers + +------+ + | Care Movie Producer Name | Role | Phone | [...] | | [facility] | | | | [place], [place] | | | | | | [address] | | | | | | [phone] | | | +--------+------+ + + + [...] | | 2018 | Visit | | [address] | | | | | | [place], [place] | | | | | | [address] | | | | | | [phone] | | | | | | | [...] ([facility]) | [facility] | | [facility] [address] | REGIONAL | | [place] [address] | LABORATORY | + + + + + + + + | Performing | Address | City/State/Zipcode | Phone Number | | Organization | | | | + + + + + | [facility] | [address] | [place] [address] | | | LABORATORY | | | [...] RLB ([facility] [facility]) | | | [facility] [address] [address] | | | [place] [address] | | + + + + + + + + | Performing | Address | City/State/Zipcode | Phone Number | | Organization | | | | + + + + + | [facility] | [address] | [place] [address] | | | LABORATORY | | | [...] | | | DEPARTMENT | | | [place]ISH | | | OF | | | [...] + + + | [facility] | [address] | [place] [address] | | | PATHOLOGY | [address] | | | + + + + + documented in this encounter Visit Diagnoses + + | Diagnosis | + + | Chest pain Chest pain, unspecified | + + | Bradycardia Other specified cardiac dysrhythmias | + + documented in this encounter"
--- OUTSIDE RECORDS SUMMARY | ~2019-09-09 | XMS | Encounter Summary ---
Demographics + + + | Address | [address] | | | [place] [address] | + + + | Home Phone [...] Team Providers + +------+ + | Care Outdoor Education Teacher Name | Role | Phone [...] | Refill | [facility] | Manolo Kirk | Medication Refill | | 2019 | | [facility] | MD [address] | | | | | PR[address] CARE [address] | [address] | | | | | [address] | [place] [address] | | | | | [place], [place] | [phone] | | | | | [address] | | | | | | [phone] | | | +--------+--------+ + + + [...] | | | | | | [place] [address] | | | | | | [phone] | | | | | | | | +--------+ + + + + | 11/20/ | Implant | Cardiology | Daljit Singletary, | Remote Device | | 2018 | Monitor | | MD [address] | Interrogation | | | | | [place], | (Primary Dx); | | | | | [place] [address] | Presence of | | | | | [phone] | permanent cardiac | | | | [...]
--- OUTSIDE RECORDS SUMMARY | ~2019-09-09 | XMS | Encounter Summary ---
Demographics + + + | Address | [address] | | | [place] [address] | + + + | Home Phone [...] Team Providers + +------+ + | Care Solutions Sales Executive Name | Role | Phone [...] 2019 | | GASTROENTEROLOGY | [address] [place] | | | | | [address] | [address] [place], [place] | | | | | [address] [place], [place] | [address] | | | | | [address] | | | | | | [phone] | | | +--------+ + + + [...] | | | | | | [place] [address] | | | | | | [phone] | | | | | | | | +--------+ + + + + | 11/20/ | Implant | Cardiology | Daljit Singletary, | Remote Device | | 2019 | Monitor | | MD [address] | Interrogation | | | | | [facility] [place], | (Primary Dx); | | | | | [place] [address] | Presence of | | | | | [phone] | permanent cardiac | | | | [...]
--- OUTSIDE RECORDS SUMMARY | ~2019-09-09 | XMS | Encounter Summary ---
Demographics + + + | Address | [address] | | | [place] [address] | + + + | Home Phone | | + + + | Preferred Language | Unknown | + + + | Marital Status | | + + + | Episcopalian Affiliation | 1013 | + + + | Race | Unknown | + + + | Ethnic Group | Unknown | + + + Author + + + | Author | [email or web address] (Historical as of | | | 07-08-19) | + + + | Organization | [email or web address] (Historical as of | | | 07-08-19) [...] Providers + +------+ + | Care Machine Set Up Technician Name | Role | Phone | [...] | | | | | involving | [place], [place] | [place], [place] | | | | | kar[place] | [address] | [address] | | | | | coronary | Phone: | Phone: | | | | | artery | [phone] | [phone] | | | | | without | Fax: | Fax: | | | | | angina | [phone] | [phone] | | | | | pectoris, | | | | | | | unspecified | | | | | | | whether | | | | | | | kar[place] or | | | | | | [...] + | 06/26/ | Telephone | [facility] | Geri Bear, | | | 2018 | | Primary Care [address] | CUT OFF SAW TENDER METAL | | | | | [address] | | | | | | [place], [place] | | | | | | [address] | | | | | | [phone] | | | +--------+ + + + [...] disease involving | | | | | kar[place] coronary | | | | | artery without | | | | | angina pectoris, | | | | | unspecified whether | | | | | kar[place] or | | | | | transplanted [...] + + | Coronary artery disease involving kar[place] coronary artery without angina pectoris, | | unspecified whether kar[place] or transplanted heart | + + | Chest pain, unspecified type | + + | Hypertension, unspecified type | + +
--- OUTSIDE RECORDS SUMMARY | ~2019-09-09 | XMS | Encounter Summary ---
Demographics + + + | Address | [address] | | | [place] [address] | + + + | Home Phone [...] Team Providers + +------+ + | Care Women'S Lacrosse Coach Name | Role | Phone [...] | 09/04/ | Telephone | [facility] | Emmanuel Daniel MD | Other | | 2019 | | GASTROENTEROLOGY | [address] | | | | | [address] | [address] [place], [place] | | | | | [address] [place], [place] | [address] | | | | | [address] | | | | | | [phone] | | | +--------+ + + + [...] | | | | | | [place] [address] | | | | | | [phone] | | | | | | | | +--------+ + + + + | 11/20/ | Implant | Cardiology | Daljit Singletary, | Remote Device | | 2019 | Monitor | | MD Chiquis Oro | Interrogation | | | | | [place], | (Primary Dx); | | | | | [place] [address] | Presence of | | | | | [phone] | permanent cardiac | | | | [...]
--- OUTSIDE RECORDS SUMMARY | ~2019-09-09 | XMS | Encounter Summary ---
Demographics + + + | Address | [address] | | | [place] [address] | + + + | Home Phone | | + + + | Preferred Language | Unknown | + + + | Marital Status | | + + + | Protestant Affiliation | 1013 | + + + | Race | Unknown | + + + | Ethnic Group | Unknown | + + + Author + + + | Author | [employer] (Historical as of | | | 07-08-19) | + + + | Organization | [facility] [employer] (Historical as of | | | 07-08-19) [...] + + | 06/12/ | Documentati | [facility] | eGri Bear, | Other (allyson | | 2019 | on Only | Primary Care [address] | JACQUARD LOOM CARD CHANGER | hillary thornton) | | | | [address] | | | | | | [place], [place] | | | | | | [address] | | | | | | [phone] | | | +--------+ + + + [...]
--- OUTSIDE RECORDS SUMMARY | ~2019-09-09 | XMS | Encounter Summary ---
Demographics + + + | Address | [address] [place] [address] | | | [place] [address] | + + + | Home Phone [...] | | | | | , [place] [address] | | + + + + + Care Team Providers + +------+ + | Care Bakery Worker Conveyor Line Name | Role | Phone | [...] Chest pain | Farooq Almaguer, | [address] | | | | | Bradycardia | DO [address] | [place] | | | | | Procedures | Yao Booth | Mailcode: | | | | | | Palak Desai | TERRI [place] | | | | | TRANSTHORACI | [facility] [place] | for Health | | | | | C | [address] | and Healing, | | | | | ECHOCARDIOGR | Phone: | Building 1 | | | | | AM, ADULT | [phone] | [place], [place] | | | | | | Fax: | [address] | | | | | | [phone] | Phone: | | | | | | | [phone] | +--------+--------+ + + + + Encounter Details +--------+ + + + + | Date | Type | Department | Care Team | Description | +--------+ + + + + | 02/03/ | Hospital | Cardiac | | | | 2010 | Encounter | Non-Invasive Testing | | | | | | at [facility] [address] | | | | | | [address] Mailcode: | | | | | | [address] | | | | | | Health and Healing, | | | | | | [address] | | | | | | [place], [place] | | | | | | [address] | | | | | | [phone] | | | +--------+ + + + [...] | | 2018 | Visit | | [address] | | | | | | [facility] [place] | | | | | | [address] | | | | | | [phone] | | | | | | | [...]
--- OUTSIDE RECORDS SUMMARY | ~2019-09-09 | XMS | Encounter Summary ---
Demographics + + + | Address | [address] | | | [place] [address] | + + + | Home Phone | | + + + | Preferred Language | Unknown | + + + | Marital Status | | + + + | Adventist Affiliation | 1013 | + + + | Race | Unknown | + + + | Ethnic Group | Unknown | + + + Author + + + | Author | [employer] (Historical as of | | | 07-08-19) | + + + | Organization | [facility] (Historical as of | | | 07-08-19) [...] Providers + +------+ + | Care Jewelry Coater Name | Role | Phone | [...] + + | 06/23/ | Documentati | [facility] | Geri Bear, | Other ([facility]. [facility] | | 2019 | on Only | Primary Care [address] | SPICE GRINDER | visit notes) | | | | [address] | | | | | | [place], [place] | | | | | | [address] | | | | | | [phone] | | | +--------+ + + + [...]
--- OUTSIDE RECORDS SUMMARY | ~2019-09-09 | XMS | Clinical Summary ---
Demographics + + + | Address | [address] | | | [place] [address] | + + + | Home Phone | | + + + | Preferred Language | Unknown | + + + | Marital Status | | + + + | Cheondoism Affiliation | 1013 | + + + | Race | Unknown | + + + | Ethnic Group | Unknown | + + + Author + + + | Author | [employer] [facility] (Historical as of | | | 07-08-19) | + + + | Organization | [facility] (Historical as of | | | 07-08-19) [...] | | | 2018 | | | SODA FOUNTAIN MANAGER | | +--------+ + + + + | 06/23/ | Documentati | | Geri Bear, | [facility] | 2018 | on Only | | SODA FOUNTAIN MANAGER | visit notes) | +--------+ + + + + | 06/12/ | Documentati | | Geri Bear, | Other (allyson | | 2018 | on Only | | SODA FOUNTAIN MANAGER | hillary thornton) | +--------+ + + [...] + | AUTO INSURANCE | AUTO | [id number] | | | | | | INSURA | | | | | | | NCE | | | | | | | GENERI | | | | | | | C | | | | | + +--------+ +------+-------+ + | AUTO INSURANCE | AUTO | [id number] | | | | | | INSURA | [id number] | | | | | | NCE | | | | | | | GENERI | | | | | | | C | | | | | + +--------+ +------+-------+ + | MEDICARE | MEDICA | [id number] | | | [address] | | | RE | | | | [place] [address] | | | IP-OP | | | | | + +--------+ +------+-------+ + | [facility] | [place] | [id number] | | | | | | | [...] | Self | [birth year] | Home: | [address] | | | al/Fam | | 1959 | +- | [place], [place] | | | roxanne | | | [address] | [address] | + +--------+ +--------+ + + | AMILCAR GAY | Third | Self | [birth year] | Home: | [address] | | | Libertarian | | 1959 | +- | [place] | | | Li[place] | | | [address] | [address] | | | ity | | | | | + +--------+ +--------+ + + | AMILCAR GAY | Third | Self | [birth year] | Home: | [address] | | | Libertarian | | 1959 | +- | [place] | | | [place] | | | [address] | [address] | | | ity | | | | | + +--------+ +--------+ + +
--- OUTSIDE RECORDS SUMMARY | ~2019-09-09 | XMS | Encounter Summary ---
Demographics + + + | Address | [address] [place] [address] | | | [place] [address] | + + + | Home Phone [...] | | | | | , [place] [address] | | + + + + + Care Team Providers + +------+ + | Care Cupboard Builder Name | Role | Phone | [...] [facility] [address] | Gastroenterology | Gastroenterology | | | | [address] | | | | | | Mailcode: [place] | | | | | | [facility] and | | | | | | [facility], [address] 2 | | | | | | [place], [place] | | | | | | [address] | | | | | | [phone] | | | +--------+ + + + [...] | | 2019 | Visit | | [address] | | | | | | [place], [place] | | | | | | [address] | | | | | | [phone] | | | | | | | | +--------+---------+ + + + documented as of this encounter Visit Diagnoses Not on filedocumented in this encounter"
--- OUTSIDE RECORDS SUMMARY | ~2019-09-09 | XMS | Clinical Summary ---
Demographics + + + | Address | [address] | | | [place] [address] | + + + | Home Phone [...] Providers + +------+ + | Care Fur Plucker Name | Role | Phone | + [...] | | + + + +---------+------+------+-------+ | [place]-3 Fatty | CAPS, one capsule by [...] | | | | | | | [place] coronary | | | | | | | | artery of [place] | | | | | | [...] Overview: Lower back injury (From [facility]) 1980 1984 | + + + [...] + | Coronary artery disease involving [place] coronary artery of | 12/21/2013 | | [place] heart without angina pectoris | | + [...] attenuation cannot | | completely be ruled out.[facility] 12/25/13, shows non critical coronary | [...] ventricular arrhythmia performed by Dr. Gambino at [facility] on 01/30/2013. Patient had spontaneous [...] back in 3 days to | | [place] for an attempt of ablation under [...] IMPLANTED GENERATOR | | Medtronic DDD ADDR01 [id number] 06/14/09 RV LEAD Medtronic Active | | Bipolar CapSureFix 4076 [id number] 06/14/09 A LEAD Medtronic | | Active Bipolar CapSurFix 4076 [id number] 06/14/09 | + + + +---+ | [...] size and systolic function, LVEF 65 to 70%.[employer] | | DDD permanent pacemaker implantation on [...] | Heart Cath, 02/29/2012, LVEF is 65%, [facility], | | [facility] Myocardial Gated Stress Test, 05/25/2009, EF 53 | | % during rest and 52% during stress. [facility], | | [place], [place].Persantine Sestamibi Stress Test, 06/14/2008, LVEF is | | 60%, [facility] 12/25/13, shows noncritical | | coronary artery [...] Plan: Nonobstructive CAD noted | | on [facility] from 2013, no EKG changes, and [...] | | | | | | [place] [address] | | | | | | [phone] | | | | | | | | +--------+ + + + + | 11/20/ | Implant | Cardiology | Daljit Singletary, | Remote Device | | 2019 | Monitor | | [place] [address] [facility] | Interrogation | | | | | [place], | (Primary Dx); | | | | | [place] [address] | Presence of | | | | | [phone] | permanent cardiac | | | | [...] | CAMERON BARNES | | 09/27/ | [id number] | | 22-32 - [id number]: | | Ureter | INCORPORATE | | 2020 | / | | Qty: 1 on 04/13/2019 by | | | D | | | /[id number] | | Matthew Uriarte MD | | [...] +--------+ +---------+--------+ | MEDICARE | MEDICA | [id number] | 01/21/20 | [phone] | | Medica | | | RE | | 01-Pre | 5 | | re | | | PART A | | sent | | | | | | AND B | | | | | | + +--------+ +--------+ +---------+--------+ | AARP | AARP | [id number] | | [phone] | | Indemn | [...] Person | Self | [birth year] | | [address] | | [place] | cristo/Per | | 1960 | [phone] | [place] | | | roxanne | | | 6 (Home) | [address] | + +--------+ +--------+ + + | Skyler Sanchezick | Dave | Self | [birth year] | | [address] | | [place] | Republican | | 1960 | [phone] | [place] | | | [place] | | | 3 ([place]ent) | [address] | | | ity | | | | | + +--------+ +--------+ + + Advance Directives Patient has advance care planning documents, and code status on file. For more information, please contact:[facility] [place] [address] + + + + + | Code [...]
--- OUTSIDE RECORDS SUMMARY | ~2019-09-09 | XMS | Encounter Summary ---
Demographics + + + | Address | [address] [place] [address] | | | [place] [address] | + + + | Home Phone [...] | | | | | , [place] [address] | | + + + + + Care Team Providers + +------+ + | Care Material Handler 2Nd Shift Name | Role | Phone | [...] Chest pain | Farooq Almaguer, | [address] | | | | | Bradycardia | DO [address] | [place] | | | | | Procedures | Yao Booth | Mailcode: | | | | | | Palak Desai | TERRI [place] | | | | | TRANSTHORACI | [facility] [place] | for Health | | | | | C | [address] | and Healing, | | | | | ECHOCARDIOGR | Phone: | Building 1 | | | | | AM, ADULT | [phone] | [place], [place] | | | | | | Fax: | [address] | | | | | | [phone] | Phone: | | | | | | | [phone] | +--------+--------+ + + + + Encounter Details +--------+ + + + + | Date | Type | Department | Care Team | Description | +--------+ + + + + | 02/03/ | Hospital | Cardiac | | | | 2010 | Encounter | Non-Invasive Testing | | | | | | at [facility] [address] | | | | | | [address] Mailcode: | | | | | | [address] | | | | | | Health and Healing, | | | | | | Building 1 | | | | | | [place], [place] | | | | | | [address] | | | | | | [phone] | | | +--------+ + + + [...] [address] | | | | | | [facility] [place] | | | | | | [address] | | | | | | [phone] | | | | | | | [...]
--- OUTSIDE RECORDS SUMMARY | ~2019-09-09 | XMS | Encounter Summary ---
Demographics + + + | Address | [address] [place] [address] | | | [place] [address] | + + + | Home Phone [...] | | | | | , [place] [address] | | + + + + + Care Team Providers + +------+ + | Care Form Grader Name | Role | Phone | [...] Chest pain | Farooq Almaguer, | [address] | | | | | Bradycardia | DO [address] | [place] | | | | | Procedures | Chano Booth | Mailcode: | | | | | | Palak Desai | TERRI [place] | | | | | TRANSTHORACI | [facility] [place] | for Health | | | | | C | [address] | and Healing, | | | | | ECHOCARDIOGR | Phone: | Building 1 | | | | | AM, ADULT | [phone] | [place], [place] | | | | | | Fax: | [address] | | | | | | [phone] | Phone: | | | | | | | [phone] | +--------+--------+ + + + + Reason [...] | | | | | | | [place] [address] | | | | | | | Phone: | | | | | | | [phone] | | | | | | | Fax: | | | | | | | [phone] | | +--------+--------+ + + + + Encounter Details +--------+---------+ + + + | Date | Type | Department | Care Team | Description | +--------+---------+ + + + | 02/03/ | Office | Cardiology General | Arlette Drew, | Chest pain (Primary | | 2010 | Visit | at [facility] [address] | MD | Dx); Bradycardia; | | | | [address] Mailcode: | | Pacemaker | | | | [address] [place] for | | | | | | Health and Healing, | | | | | | | | | | | | Floor [place], [place] | | | | | | [address] | | | | | | [phone] | | | +--------+---------+ + + + [...] per Dr. Drew's note. Farooq Jamil DO Supervisor Train Operations Clinical installer molding and trim/ Division of Cardiovascular Medicine ajaira Vaz RN - 02/09/2011 12:59 PM PDT PACEMAKER HISTORY Primary Care Provider: Darion Holden DO Retail Shift Manager: Arlette Drew MD Moe Sanchez is [...] pacemaker was put at the recommendation of Retail Shift Manager Dr. Singletary from [employer] [place]. Pt. states lala bhatti was put>1 [...] Dr. Omero DREW MD CARDIOLOGY - GENERAL [address] Mailcode: Ch9a [facility], 9th [facility] [address] documented in this en counter Plan of Treatment +--------+---------+ + + + | Date | Type | Specialty | Care Team | Description | +--------+---------+ + + + | 09/28/ | Office | Gastroenterology | Bridgette Rios, | | | 2018 | Visit | | [address] | | | | | | [place], [place] | | | | | | [address] | | | | | | [phone] | | | | | | | [...] [facility]) | [facility] | | [facility] [place] [address] [facility] | REGIONAL | | [place] [address] | LABORATORY | + + + + + + + + | Performing | Address | City/State/Zipcode | Phone Number | | Organization | | | | + + + + + | [facility] | [address] | [place] [address] | | | LABORATORY | | | [...] RLB ([address] [facility]) | | | [facility] [address] | | | [place] [address] | | + + + + + + + + | Performing | Address | City/State/Zipcode | Phone Number | | Organization | | | | + + + + + | [facility] | [address] | [place] [address] | | | LABORATORY | | | [...] | | | DEPARTMENT | | | CAMEROONIAN | | | OF | | | [...] + + + + + | [facility] | [address] | [place] [address] | | | PATHOLOGY | [address] | | | + + + + + EJECTION FRACTION (02/03/2011 3:33 PM PDT) + +-------+ + + + | Component | Value | Ref Range | Performed | Pathologist | | | | | At | Signature | + +-------+ + + + | BIPLANE, EF | 59.1 | | [facility] DEPT | | | | | | [...] DEPT OF | [address] | [place], [place] | | | CARDIOLOGY | [address] | [address] | | + + + + + [...] DEPT OF | [address] | [place], [place] | | | CARDIOLOGY | [address] | [address] | | + + + + + [...] view image for the detailed interpretation from Smart Balloon results. | CARDIOLOGY | + + + + + + + + | Performing | Address | City/State/Zipcode | Phone Number | | Organization | | | | + + + + + | [facility] | [address] | [place], [place] | | | CARDIOLOGY | [address] | [address] | | + + + + + documented in this encounter Visit Diagnoses + + | Diagnosis | + + | Chest pain - Primary Chest pain, unspecified | + + | Bradycardia Other specified cardiac dysrhythmias | + + | Pacemaker Cardiac pacemaker in situ | + + documented in this encounter
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
--- OUTSIDE RECORDS SUMMARY | ~2019-09-09 | XMS | Encounter Summary ---
Demographics + + + | Address | [address] | | | [place] [address] | + + + | Home Phone | | + + + | Preferred Language | Unknown | + + + | Marital Status | | + + + | Mormon Affiliation | 1013 | + + + | Race | Unknown | + + + | Ethnic Group | Unknown | + + + Author + + + | Author | [address] [employer] (Historical as of | | | 07-08-19) | + + + | Organization | [facility] (Historical as of | | | 07-08-19) [...] Providers + +------+ + | Care Marketing Account Executive Name | Role | Phone [...] | | | | | involving | [place], [place] | [place], [place] | | | | | [place] | [address] | [address] | | | | | coronary | Phone: | Phone: | | | | | artery | [phone] | [phone] | | | | | without | Fax: | Fax: | | | | | angina | [phone] | [phone] | | | | | pectoris, | | | | | | | unspecified | | | | | | | whether | | | | | | | [place] or | | | | | | [...] + | 06/26/ | Telephone | [facility] | Geri Bear, | | | 2018 | | Primary Care [address] | MARBLE MACHINE OPERATOR | | | | | [address] | | | | | | [place], [place] | | | | | | [address] | | | | | | [phone] | | | +--------+ + + + [...] disease involving | | | | | [place] coronary | | | | | artery without | | | | | angina pectoris, | | | | | unspecified whether | | | | | [place] or | | | | | transplanted [...] Coronary artery disease involving [place] coronary artery without angina pectoris, | | unspecified whether [place] or transplanted heart | + + | Chest pain, unspecified type | + + | Hypertension, unspecified type | + +
--- OUTSIDE RECORDS SUMMARY | ~2019-09-09 | XMS | Encounter Summary ---
Demographics + + + | Address | [address] | | | [place] [address] | + + + | Home Phone [...] Team Providers + +------+ + | Care Jelly Maker Name | Role | Phone | [...] | 07/31/ | Telephone | [facility] | Silvia, | AFSHAN | | 2019 | | CARDIOLOGY [address] | [address] [place] [address] | | | | | [place], | [place], | | | | | [place] [address] | [place] [address] | | | | | [phone] | [phone] | | | | | | | [...] | | | | | | [place] [address] | | | | | | [phone] | | | | | | | | +--------+ + + + + | 11/20/ | Implant | Cardiology | Daljit Singletary, | Remote Device | | 2019 | Monitor | | MD [address] | Interrogation | | | | | [place], | (Primary Dx); | | | | | [place] [address] | Presence of | | | | | [phone] | permanent cardiac | | | | [...]
--- OUTSIDE RECORDS SUMMARY | ~2019-09-09 | XMS | Encounter Summary ---
Demographics + + + | Address | [address] | | | [place] [address] | + + + | Home Phone [...] +------+ + | Care Deep Submergence Vehicle Crewmember Name | Role | Phone | [...] + + | 07/13/ | Telephone | [facility] | Kirk French | Referral Question | | 2019 | | [facility] | MD Bre[address] | | | | | [address] | [address] | | | | | [address] | [place] [address] | | | | | [place], [place] | [phone] | | | | | [address] | | | | | | [phone] | | | +--------+ + + + [...] | | | | | | [place] [address] | | | | | | [phone] | | | | | | | | +--------+ + + + + | 11/20/ | Implant | Cardiology | Daljit Singletary, | Remote Device | | 2019 | Monitor | | [address] [facility] | Interrogation | | | | | [place], | (Primary Dx); | | | | | [place] [address] | Presence of | | | | | [phone] | permanent cardiac | | | | [...]
[~2019-09-09 20:58] MED LIST changes: +LOMOTIL TABLET1 EACH PO; +PROMETHAZINE12.5 M1 PO
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
== END 2019-09-09 22:26 | disposition home or self-care (01) ==
LOC: ED 20:58
DX: S46.911A Strain of unspecified muscle, fascia and tendon at shoulder and upper arm level, right arm, initial encounter (principal); I10 Essential (primary) hypertension; Z87.891 Personal history of nicotine dependence; Z88.0 Allergy status to penicillin; Z88.1 Allergy status to other antibiotic agents; Z88.5 Allergy status to narcotic agent; Z88.6 Allergy status to analgesic agent; Z88.8 Allergy status to other drugs, medicaments and biological substances; Z79.82 Long term (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; Z79.899 Other long term (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; Y04.0XXA Assault by unarmed brawl or fight, initial encounter
CPT/HCPCS: 73030; 99283

== ENCOUNTER 2019-09-19 12:01 | Emergency (ER) | payer MEDICARE ==
[~2019-09-19] VITALS: Ht 193 cm; Wt 90.7 kg
--- OUTSIDE RECORDS SUMMARY | ~2019-09-19 | XMS | Clinical Summary ---
Demographics + + + | Address | [address] | | | [place] [address] | + + + | Home Phone | | + + + | Preferred Language | Unknown | + + + | Marital Status | | + + + | Moravian Affiliation | 1013 | + + + | Race | Unknown | + + + | Ethnic Group | Unknown | + + + Author + + + | Author | [facility] (Historical as of | | | 07-08-19) | + + + | Organization | [facility] (Historical as of | | | 07-08-19) [...] Team Providers + +------+ + | Care Academic Support Specialist Name | Role | Phone | + +------+ + | Kirk French MD | PP | | + +------+ + Allergies + + + + + + | Active Allergy | Reactions | Severity | Noted | Comments | | | | | Date | | + + + + + + | Clarithromycin | Rash | Medium | 02/28/20 | | | | | | 14 | | + + + + + + | Duloxetine | Palpitations | Medium | 12/31/19 | | | | | | 17 | | + + + + + + | Fentanyl | Itching | Medium | 12/31/19 | | | | | | 17 | | + + + + + + | Penicillins | Palpitations | Medium | 02/28/20 | | | | | | 14 | | + + + + + + | Prednisone | Mental Changes | Low | 12/31/19 | | | | | | 17 | | + + + + + + | Tramadol | Hives | High | 12/31/19 | | | | | | 17 | | + + + + + + | Hydrocodone-Acetamin | Other (See Comments) | Medium | 02/28/20 | "makes me very | | ophen | | | 14 | irritable" | + + + + + + Current Medications + + + +---------+------+------+-------+ | Prescription | Sig. | Disp. | Refills | Star | End | Statu | | | | | | t | Date | s | | | | | | Date | | | + + + +---------+------+------+-------+ | aspirin 81 MG EC | Take 81 mg by mouth | | | | | Activ | | tablet | daily with | | | | | e | | | breakfast. | | | | | | + + + +---------+------+------+-------+ | NATTOKINASE PO | Take by mouth 2 | | | | | Activ | | | (two) times daily. | | | | | e | + + + +---------+------+------+-------+ | UNABLE TO FIND | daily. Med Name: | | | | | Activ | | | Cardiocore 2 po q | | | | | e | | | day | | | | | | + + + +---------+------+------+-------+ | Multiple Vitamin | Take 1 capsule by | | | | | Activ | | (MULTIVITAMIN) | mouth daily. | | | | | e | | capsule | | | | | | | + + + +---------+------+------+-------+ | | Take by mouth 2 | | | | | Activ | | 5-Hydroxytryptophan | (two) times daily. | | | | | e | | (5-HTP) 100 MG CAPS | | | | | | | + + + +---------+------+------+-------+ | Misc Natural | Take by mouth 2 | | | | | Activ | | Products (OSTEO | (two) times daily. | | | | | e | | BI-FLEX ADV JOINT | | | | | | | | SHIELD PO) | | | | | | | + + + +---------+------+------+-------+ | | Take 10 mg by mouth | | | | | Activ | | Melatonin-Pyridoxine | nightly. | | | | | e | | (MELATIN PO) | | | | | | | + + + +---------+------+------+-------+ | Cholecalciferol | Take by mouth. | | | | | Activ | | (VITAMIN D-3 PO) | | | | | | e | + + + +---------+------+------+-------+ | ascorbic acid | Take 1,000 mg by | | | | | Activ | | (VITAMIN C) 1000 MG | mouth daily. | | | | | e | | tablet | | | | | | | + + + +---------+------+------+-------+ | diphenhydrAMINE | Take 25 mg by mouth | | | | | Activ | | (BENADRYL) 25 mg | every 6 (six) hours | | | | | e | | capsule | as needed for | | | | | | | | Itching. | | | | | | + + + +---------+------+------+-------+ | FREE TEXT | CPAP machine | 1 Units | 0 | 02/0 | | Activ | | PRESCRIPTION, PRINT | | | | /20 | | e | | ONLY,Indications: | | | | 17 | | | | DIDIER (obstructive | | | | | | | | sleep apnea) | | | | | | | + + + +---------+------+------+-------+ | valACYclovir | take 1 tablet by | 90 | 1 | 04/0 | | Activ | | (VALTREX) 500 MG | mouth once daily | tablet | | 3/20 | | e | | tablet | | | | 17 | | | + + + +---------+------+------+-------+ | acyclovir | Apply topically | 15 g | 0 | 08/2 | | Activ | | (ZOVIRAX) 5 % | every 3 (three) | | | 2/20 | | e | | ointment | hours. | | | 17 | | | + + + +---------+------+------+-------+ | cephALEXin | Take 1 capsule by | 40 | 0 | 03/0 | | Activ | | (KEFLEX) 500 MG | mouth 4 (four) times | capsule | | 2/20 | | e | | capsule | daily. | | | 18 | | | + + + +---------+------+------+-------+ | ciprofloxacin | Take 1 tablet by | 14 | 0 | 03/0 | | Activ | | (CIPRO) 250 MG | mouth 2 (two) times | tablet | | 2/20 | | e | | tablet | daily. | | | 18 | | | + + + +---------+------+------+-------+ | | Take 1,000 mg by | 180 | 0 | 03/0 | | Activ | | Methylsulfonylmethan | mouth 2 (two) times | each | | /20 | | e | | e (MSM) 1000 MG TABS | daily. | | | 18 | | | + + + +---------+------+------+-------+ | losartan (COZAAR) | Take 1 tablet by | 90 | 0 | 03/0 | | Activ | | 25 MG tablet | mouth daily. | tablet | | 9/20 | | e | | | | | | 18 | | | + + + +---------+------+------+-------+ | glucose blood test | Test up to 1 times a | 100 | 3 | 03/0 | | Activ | | stripIndications: | day as needed ( One | each | | 9/20 | | e | | Hypoglycemia | touch ) | | | 18 | | | + + + +---------+------+------+-------+ | aluminum-magnesium | Take 5 mLs by mouth | 900 mL | 0 | 03/0 | | Activ | | hydroxide 200-200 | every 6 (six) hours | | | 9/20 | | e | | MG/5ML suspension | as needed for | | | 18 | | | | | Indigestion for up | | | | | | | | to 90 days. | | | | | | + + + +---------+------+------+-------+ | flecainide | Take 100 mg by | | | 08/0 | | Activ | | (TAMBOCOR) 100 MG | mouth. | | | 6/20 | | e | | tablet | | | | 18 | | | + + + +---------+------+------+-------+ | metoprolol | Take 100 mg by | | | 08/0 | | Activ | | (TOPROL-XL) 100 MG | mouth. | | | 6/20 | | e | | 24 hr tablet | | | | 18 | | | + + + +---------+------+------+-------+ | ranitidine | Take 75 mg by mouth. | | | 09/0 | | Activ | | (ZANTAC) 75 MG | | | | 6/20 | | e | | tablet | | | | 18 | | | + + + +---------+------+------+-------+ | ciprofloxacin | Take 1 tablet by | 14 | 0 | 10/0 | | Activ | | (CIPRO) 250 MG | mouth 2 (two) times | tablet | | 8/20 | | e | | tablet | daily. | | | 18 | | | + + + +---------+------+------+-------+ | cloNIDine | TAKE ONE TABLET BY | 180 | 0 | 10/0 | | Activ | | (CATAPRES) 0.2 MG | MOUTH TWICE A DAY | tablet | | 9/20 | | e | | tablet | | | | 18 | | | + + + +---------+------+------+-------+ | pravastatin | TAKE ONE TABLET BY | 90 | 0 | 10/0 | | Activ | | (PRAVACHOL) 40 MG | MOUTH EVERY DAY IN | tablet | | 9/20 | | e | | tablet | THE EVENING | | | 18 | | | + + + +---------+------+------+-------+ | rOPINIRole | TAKE ONE TABLET BY | 90 | 0 | 10/0 | | Activ | | (REQUIP) 1 MG tablet | MOUTH EVERY DAY IN | tablet | | /20 | | e | | | THE EVENING | | | 18 | | | + + + +---------+------+------+-------+ | loperamide | Take 4 mg by mouth. | | | | | Activ | | (IMODIUM A-D) 2 MG | | | | | | e | | tablet | | | | | | | + + + +---------+------+------+-------+ | ondansetron | Take 1 tablet by | 60 | 3 | 02/2 | | Activ | | (ZOFRAN) 4 MG tablet | mouth 3 (three) | tablet | | /20 | | e | | | times daily as | | | 19 | | | | | needed for Nausea. | | | | | | + + + +---------+------+------+-------+ | dicyclomine | Take 1 tablet by | 120 | 3 | 02/2 | | Activ | | (BENTYL) 20 MG | mouth every 6 (six) | tablet | | 6/20 | | e | | tablet | hours. | | | 19 | | | + + + +---------+------+------+-------+ | valacyclovir | TAKE ONE TABLET BY | 180 | 0 | 04/1 | | Activ | | (VALTREX) 1000 MG | MOUTH TWICE A DAY | tablet | | 5/20 | | e | | tablet | | | | 19 | | | + + + +---------+------+------+-------+ | | Take 1 tablet by | 120 | 11 | 05/2 | | Activ | | diphenoxylate-atropi | mouth 4 (four) times | tablet | | 0/20 | | e | | ne (LOMOTIL) | daily as needed for | | | 19 | | | | 2.5-0.025 MG per | Diarrhea. | | | | | | | tablet | | | | | | | + + + +---------+------+------+-------+ | nitroGLYCERIN | PLACE ONE TABLET | 250 | 0 | 07/0 | | Activ | | (NITROSTAT) 0.4 MG | UNDER THE TONGUE | tablet | | 2/20 | | e | | SL tablet | EVERY 5 MINUTES | | | 19 | | | | | NEEDED FOR CHEST | | | | | | | | PAIN | | | | | | + + + +---------+------+------+-------+ | nitroGLYCERIN | PLACE ONE TABLET | 250 | 0 | 07/1 | | Activ | | (NITROSTAT) 0.4 MG | UNDER THE TONGUE | tablet | | 5/20 | | e | | SL tablet | EVERY 5 MINUTES | | | 19 | | | | | NEEDED FOR CHEST | | | | | | | | PAIN | | | | | | + + + +---------+------+------+-------+ | clonazePAM | Take 1 tablet by | 270 | 0 | 07/1 | | Activ | | (KLONOPIN) 1 MG | mouth 3 (three) | tablet | | 5/20 | | e | | tablet | times daily as | | | 19 | | | | | needed for Anxiety. | | | | | | + + + +---------+------+------+-------+ | sertraline | Take 1.5 tablets by | 135 | 3 | 05/22 | 05/22 | Activ | | (ZOLOFT) 100 MG | mouth daily. | tablet | | 05/11 | 04/10 | e | | tablet | | | | | 20 | | + + + +---------+------+------+-------+ Active Problems + + + | Problem | Noted Date | + + + | Multiple substance abuse (HCC) | 01/17/2019 | + + + | DIDIER (obstructive sleep apnea) | 01/17/2019 | + + + | Low back pain | 01/17/2019 | + + + | Irritable bowel syndrome | 01/17/2019 | + + + | Pacemaker | 01/17/2019 | + + + | Obesity | 01/17/2019 | + + + | Tired | 12/22/2018 | + + + | Abnormal serum level of lipase | 12/22/2018 | + + + | Neuralgia | 11/25/2018 | + + + | Abdominal pain | 10/18/2017 | + + + | Morbid obesity due to excess calories (HCC) | 04/29/2017 | + + + | Palpitation | 04/29/2017 | + + + | Hypoglycemia | 04/29/2017 | + + + | Medically noncompliant | 04/29/2017 | + + + | Dizzy | 04/29/2017 | + + + | Depression | 04/29/2017 | + + + | Bipolar 2 disorder | 04/29/2017 | + + + | Lower urinary tract symptoms (LUTS) | 03/15/2017 | + + + | Anxiety about health | 03/15/2017 | + + + | Polycythemia | 12/31/2016 | + + + | HTN, goal below 140/90 | 12/31/2016 | + + + | Neck pain | 12/31/2016 | + + + | DIDIER (obstructive sleep apnea) | 10/15/2015 | + + + | Insomnia | 11/26/2014 | + + + | Chronic pain | 11/26/2014 | + + + | CAD (coronary artery disease) | 11/26/2014 | + + + | Pacemaker | 11/26/2014 | + + + | Anxiety | 11/26/2014 | + + + | Lipids abnormal | 11/26/2014 | + + + | Hyperglycemia | 11/26/2014 | + + + | Chest pain | 02/27/2014 | + + + | Hypokalemia | 02/27/2014 | + + + | HTN (hypertension) | 02/27/2014 | + + + | Dyslipidemia | 02/27/2014 | + + + | Diarrhea | 02/27/2014 | + + + | Cannabis abuse | | + + + Encounters +--------+ + + + + | Date | Type | Specialty | Care Team | Description | +--------+ + + + + | 06/26/ | Telephone | | Geri Bear, | | | 2018 | | | TUMOR REGISTRAR | | +--------+ + + + + | 06/23/ | Documentati | | Geri Bear, | Britt faustin | | 2018 | on Only | | TUMOR REGISTRAR | visit notes) | +--------+ + + + + from Last 3 Months Immunizations + + + + | Name | Dates Previously Given | Next Due | + + + + | Hepatitis A Adult | 06/24/2015, 04/27/2006, 06/26/2005 | | + + + + | INFLUENZA PF, | 07/23/2016, 06/24/2015 | | | QUADRIVALENT | | | | (PED/ADOL/ADULT) | | | + + + + | IPV | 06/24/2015 | | + + + + | Influenza, Trivalent | 09/10/2009 | | | W/Preservative | | | + + + + | Td W/o Preservative | 05/16/2002 | | | (Adol/adult) | | | + + + + | Tdap | 08/17/2011 | | + + + + | Typhoid Inactivated | 06/24/2015, 06/26/2005 | | + + + + | Zoster (Live) | 06/24/2015 | | + + + + Family History + + +------+ + | Medical History | Relation | Name | Comments | + + +------+ + | Cancer | Father | | prostate, colon | + + +------+ + | Heart [...] Comments | + +------+ + + | Father | | Alive | 87 | + +------+ + + | Mother | | | AAA rupture | | | | (Age | | | | | 63) | | + +------+ + + Social [...] + + + | Blood Pressure | 118/72 | 01/17/2019 12:36 PM PST | + + + + | Pulse | 80 | 01/17/2019 12:36 PM PST | + + + + | Temperature | 36.1 C (97 F) | 04/11/2018 11:12 AM PDT | + + + + | Respiratory Rate | 16 | 01/17/2019 12:36 PM PST | + + + + | Oxygen Saturation | 96% | 01/17/2019 12:36 PM PST | + + + + | Inhaled Oxygen | - | - | | Concentration | | | + + + + | Weight | 110.2 kg (243 lb) | 01/17/2019 12:36 PM PST | + + + + | Height | 190.5 cm (6' 3") | 01/17/2019 12:36 PM PST | + + + + | Body Mass Index | 30.37 | 01/17/2019 12:36 PM PST | + + + + Plan of [...] | + + + + + | Colon Cancer | | 12/24/2017, 05/26/2009 | | | Screening | 8 | | | | (Colonoscopy) | | | | + + + + + Results Not on filefrom Last 3 Months Insurance + +--------+ +------+-------+ + | Payer | Benefi | Subscriber | Type | Phone | Address | | | t Plan | ID | | | | | | / | | | | | | | Group | | | | | + +--------+ +------+-------+ + | [employer] INSURANCE | AUTO | [id number] | | | | | | INSURA | | | | | | | NCE | | | | | | | GENERI | | | | | | | C | | | | | + +--------+ +------+-------+ + | AUTO INSURANCE | AUTO | [id number] | | | | | | INSURA | [id number] | | | | | | NCE | | | | | | | GENERI | | | | | | | C | | | | | + +--------+ +------+-------+ + | MEDICARE | MEDICA | [id number] | | | [id number] | | | RE | | | | [place] [id number] | | | IP-OP | | | | | + +--------+ +------+-------+ + | [facility] | TROY | [id number] | | | | | | | | | | | | | HEALTH | | | | | | | CARE - | | | | | | | AARP | | | | | + +--------+ +------+-------+ + + +--------+ +--------+ + + | Guarantor Name | Accoun | Relation to | Date | Phone | Billing Address | | | t Type | Patient | of | | | | | | | | | | + +--------+ +--------+ + + | AMILCAR GAY | Person | Self [birth year] | Home: | [address] | | | al/Per | | 1959 | [phone] | [place] | | | roxanne | | | [phone] | [phone] | + +--------+ +--------+ + + | AMILCAR GAY | Third | Self | [birth year] | Home: | [address] | | | Republican | | 1960 | [phone] | [place], [place] | | | [place] | | | [phone] | [phone] | | | ity | | | | | + +--------+ +--------+ + + | AMILCAR GAY | Third | Self | [birth year] | Home: | [address] | | | Republican | | 1960 | [phone] | [place], [place] | | | [place] | | | [phone] | [phone] | | | ity | | | | | + +--------+ +--------+ + +
--- OUTSIDE RECORDS SUMMARY | ~2019-09-19 | XMS | Encounter Summary ---
Demographics + + + | Address | [address] [place] [address] | | | [place] [address] | + + + | Home Phone | | + + + | Preferred Language | Unknown | + + + | Marital Status | | + + + | Methodist Affiliation | Unknown | + + + | Race | White | + + + | Ethnic Group | Not or | + + + Author + + + | Author | [facility] | + + + | Organization | [facility] | + + + | Address | Unknown | + + + | Phone | Unavailable | + + + Support + + + + + | Name | Relationship | Address | Phone | + + + + + | Andreia Sanchez | ELIEZER | [place] | | | | | [place] | | | | | , [place] [address] | | + + + + + Care Team Providers + +------+ + | Care Premix Concrete Batcher Name | Role | Phone | + [...] | 2019 | | Center at [facility] 1952 | Gastroenterology | Gastroenterology | | | | [address] | | | | | | Mailcode: Institute | | | | | | [facility] | | | | | | [facility], [address] | | | | | | [place], [place] | | | | | | [address] | | | | | | [phone] | | | +--------+ + + + [...] + + | 09/28/ | Office | Gastroenterology | Bridgette Rios, | | | 2019 | Visit | | [address] | | | | | | [place], [place] | | | | | | [address] | | | | | | [phone] | | | | | | | | +--------+---------+ + + + documented as of this encounter Visit Diagnoses Not on filedocumented in this encounter"
--- OUTSIDE RECORDS SUMMARY | ~2019-09-19 | XMS | Encounter Summary ---
Demographics + + + | Address | [address] | | | [place] [address] | + + + | Home Phone [...] Providers + +------+ + | Care Protective Officer Name | Role | Phone | [...] | 07/31/ | Telephone | [facility] | Silvia, | AFSHAN | | 2019 | | CARDIOLOGY [address] | [address] [place] [address] | | | | | [place], | [place], | | | | | [place] [address] | [place] [address] | | | | | [phone] | | | | | | | [...] | | | | | | [place] [address] | | | | | | [phone] | | | | | | | | +--------+ + + + + | 11/20/ | Implant | Cardiology | Daljit Singletary, | Remote Device | | 2019 | Monitor | | [place] Chiquis Oro | Interrogation | | | | | [place], | (Primary Dx); | | | | | [place] [address] | Presence of | | | | | [phone] | permanent cardiac | | | | [...] | | + +--------+ + + | Lipid Panel | Routin | Hyperlipidemia, | Expected: | | | e | mixed | 07/31/2019, Expires: | | | | | 07/30/2020 | + +--------+ + + documented as of this encounter Visit Diagnoses + + | Diagnosis | + + | Hyperlipidemia, mixed - Primary Mixed hyperlipidemia | + + documented in this encounter"
--- OUTSIDE RECORDS SUMMARY | ~2019-09-19 | XMS | Encounter Summary ---
Demographics + + + | Address | [address] | | | [place] [address] | + + + | Home Phone [...] + +------+ + | Care Accounts Receivable Executive Name | Role | Phone | [...] | 09/04/ | Telephone | [facility] | Emmanuel Daniel MD | Other | | 2019 | | GASTROENTEROLOGY | [address], [place] | | | | | [address] [place] | [address] [place], [place] | | | | | [address] [place], [place] | [address] | | | | | [address] | | | | | | [phone] | | | +--------+ + + + [...] | | | | | | [place] [address] | | | | | | [phone] | | | | | | | | +--------+ + + + + | 11/20/ | Implant | Cardiology | Daljit Singletary, | Remote Device | | 2019 | Monitor | | MD Chiquis Oro | Interrogation | | | | | [facility], | (Primary Dx); | | | | | [place] [address] | Presence of | | | | | [phone] | permanent cardiac | | | | [...]
--- OUTSIDE RECORDS SUMMARY | ~2019-09-19 | XMS | Encounter Summary ---
Demographics + + + | Address | [address] [place] [address] | | | [place] [address] | + + + | Home Phone [...] Author | [facility] | + + + | Organization | [facility] | + + + | Address | Unknown | + + + | Phone | Unavailable | + + + Support + + + + + | Name | Relationship | Address | Phone | + + + + + | Andreia Sanchez | ELIE[address]ER | [address] | | | | | [place] | | | | | , [place] [address] | | + + + + + Care Team Providers + +------+ + | Care Space And Missile Defense Operations Name | Role | Phone | + +------+ + | Darion Holden DO | PCP | | + +------+ + Encounter Details +--------+------+ + + + | Date | Type | Department | Care Team | Description | +--------+------+ + + + | 02/03/ | Lab | Laboratory at [facility] | | Chest pain; | | 2010 | | [address] | | Bradycardia | | | | [place], [place] | | | | | | [address] | | | | | | [phone] | | | +--------+------+ + + + [...] | | 2018 | Visit | | [address] | | | | | | [place], [place] | | | | | | [address] | | | | | | [phone] | | | | | | | [...] ([facility]) | [facility] | | [facility] [place] [address] | REGIONAL | | [place] [address] | LABORATORY | + + + + + + + + | Performing | Address | City/State/Zipcode | Phone Number | | Organization | | | | + + + + + | [facility] | [address] | [place] [address] | | | LABORATORY | | | [...] RLB ([facility]) | | | [facility] [place] [address] | | | [place] [address] | | + + + + + + + + | Performing | Address | City/State/Zipcode | Phone Number | | Organization | | | | + + + + + | [facility] | [address] | [place] [address] | | | LABORATORY | | | [...] | | | DEPARTMENT | | | SUDANESE | | | OF | | | [...] | + + + + + | [facility] | [address] | [place] [address] | | | PATHOLOGY | [address] | | | + + + + + documented in this encounter Visit Diagnoses + + | Diagnosis | + + | Chest pain Chest pain, unspecified | + + | Bradycardia Other specified cardiac dysrhythmias | + + documented in this encounter"
--- OUTSIDE RECORDS SUMMARY | ~2019-09-19 | XMS | Clinical Summary ---
Demographics + + + | Address | [address] [place] [address] | | | [place] [address] | + + + | Home Phone | | + + + | Preferred Language | Unknown | + + + | Marital Status | | + + + | Quaker Affiliation | Unknown | + + + [...] | | | | | , [place] [address] | | + + + + + Care Team Providers + +------+ + | Care Glaucoma Specialist Name | Role | Phone | + +------+ + | Darion Holden DO | PCP | | + +------+ + Source Comments [facility] is fully live on both [facility] and [facility] InPatient.[facility] Allergies + + + + [...] | | 2018 | Visit | | [address] | | | | | | [place], [place] | | | | | | [address] | | | | | | [phone] | | | | | | | [...] | x | 11-Pre | 8 | [address] | | | | STATE | | sent | | [place], | | | | | | | | [place] | | | | | | | | [address] | | + +--------+ +--------+ + +--------+ | MEDICARE | MEDICA | xxxxxxxxxxx | 11/22/19 | [phone] | [address] | Medica | | | RE A & | | 10-Pre | 1 | [id number] | re | | | [address] | | sent | | [place] | | | | | | | | [address] | | + +--------+ +--------+ + +--------+ | [employer] | AARP | xxxxxxxxxx | 11/22/19 | [phone] | [address] | Indemn | | RETIRED PEOPLE | | | 10-Pre | 9 | [id number] | ity | | | | | sent | | [place] | | | | | | | | [address] | | + +--------+ +--------+ + +--------+ + +--------+ +--------+ + + | Guarantor Name | Accoun | Relation to | Date | Phone | Billing Address | | | t Type | Patient | of | | | | | | | | | | + +--------+ +--------+ + + | Moe Sanchez | Person | Self | [birth year] | [address] | | | al/Fam | | 1959 | [phone] | [place] | | | roxanne | | | 6 (Home) | [address] | + +--------+ +--------+ + + Advance Directives + + + + + | Type | Date Recorded | Patient | Explanation | | | | Powder Loader | | + + + + + | Advance | | | | | Directives and | | | | | Living Will | | | | + + + + + | Power of | | | | | Adjuster Arbitrator | | | | + + + + +
--- OUTSIDE RECORDS SUMMARY | ~2019-09-19 | XMS | Encounter Summary ---
Demographics + + + | Address | [address] | | | [place] [address] | + + + | Home Phone [...] Providers + +------+ + | Care Public Safety Dispatcher Name | Role | Phone | + +------+ + | Krik French MD | PCP | Unavailable | [...] 2019 | | GASTROENTEROLOGY | [address], [place] | | | | | [address] [place] | [address] [place], [place] | | | | | [address] [place], [place] | [address] | | | | | [address] | | | | | | [phone] | | | +--------+ + + + [...] | | | | | | [place] [address] | | | | | | [phone] | | | | | | | | +--------+ + + + + | 11/20/ | Implant | Cardiology | Daljit Singletary, | Remote Device | | 2019 | Monitor | | MD Chiquis [address] [place] | Interrogation | | | | | [facility], | (Primary Dx); | | | | | [place] [address] | Presence of | | | | | [phone] | permanent cardiac | | | | [...]
--- OUTSIDE RECORDS SUMMARY | ~2019-09-19 | XMS | Encounter Summary ---
Demographics + + + | Address | [address] | | | [place] [address] | + + + | Home Phone | | + + + | Preferred Language | Unknown | + + + | Marital Status | | + + + | Presybeterian Affiliation | 1013 | + + + | Race | Unknown | + + + | Ethnic Group | Unknown | + + + Author + + + | Author | [facility] (Historical as of | | | 07-08-19) | + + + | Organization | [facility] (Historical as of | | | 07-08-19) [...] Providers + +------+ + | Care Boat Hop Name | Role | Phone | [...] + + | 06/23/ | Documentati | [facility] | Geri Bear, | Other (st. [facility] | | 2019 | on Only | Primary Care [address] | UTILIZATION REVIEW NURSE | visit notes) | | | | [address] | | | | | | [place], [place] | | | | | | [address] | | | | | | [phone] | | | +--------+ + + + [...]
--- OUTSIDE RECORDS SUMMARY | ~2019-09-19 | XMS | Encounter Summary ---
Demographics + + + | Address | [address] [place] [address] | | | [place] [address] | + + + | Home Phone [...] | | | | | , [place] [address] | | + + + + + Care Team Providers + +------+ + | Care Apple Solutions Consultant Name | Role | Phone [...] [place] | | | | | at [facility] | [facility] | | | | | [address] | [place] [address] | | | | | [facility] | | | | | | Mailcode: OP12B Yao | | | | | | [facility] | | | | | | [facility] | | | | | | [place] [address] | | | | | | [phone] | | | +--------+ + + + [...] | | 2019 | Visit | | [address] | | | | | | [place], [place] | | | | | | [address] | | | | | | [phone] | | | | | | | [...] view image for the detailed interpretation from [employer] results. | CARDIOLOGY | + + + + + + + + | Performing | Address | City/State/Zipcode | Phone Number | | Organization | | | | + + + + + | [facility] | [address] | [place], [place] | | | CARDIOLOGY | [address] | [address] | | + + + + + documented in this encounter Visit Diagnoses Not on filedocumented in this encounter"
--- OUTSIDE RECORDS SUMMARY | ~2019-09-19 | XMS | Encounter Summary ---
Demographics + + + | Address | [address] | | | [place] [address] | + + + | Home Phone [...] Team Providers + +------+ + | Care Packer Insulation Name | Role | Phone | [...] + + | 07/13/ | Telephone | [facility] | Kirk French | Referral Question | | 2019 | | [facility] | MD [address] | | | | | PRIMARY CARE [address] | [address] | | | | | [address] | [place] [address] | | | | | [place], [place] | [phone] | | | | | [address] | | | | | | [phone] | | | +--------+ + + + [...] | | | | | | [place] [address] | | | | | | [phone] | | | | | | | | +--------+ + + + + | 11/20/ | Implant | Cardiology | Daljit Singletary, | Remote Device | | 2019 | Monitor | | [address] [facility] | Interrogation | | | | | [facility], | (Primary Dx); | | | | | [place] [address] | Presence of | | | | | [phone] | permanent cardiac | | | | [...]
--- OUTSIDE RECORDS SUMMARY | ~2019-09-19 | XMS | Encounter Summary ---
Demographics + + + | Address | [address] [place] [address] | | | [place] [address] | + + + | Home Phone [...] | | | | | , [place] [address] | | + + + + + Care Team Providers + +------+ + | Care Impregnator Name | Role | Phone | + [...] Chest pain | Farooq Almaguer, | [address] | | | | | Bradycardia | DO [address] | [place] [place] | | | | | Procedures | Yao Booth | Mailcode: | | | | | | Palak Desai | [place] | | | | | TRANSTHORACI | [facility] [place] | for Health | | | | | C | [address] | and Healing, | | | | | ECHOCARDIOGR | Phone: | [address] | | | | | AM, ADULT | [phone] | [place], [place] | | | | | | Fax: | [address] | | | | | | [phone] | Phone: | | | | | | | [phone] | +--------+--------+ + + + + Encounter Details +--------+ + + + + | Date | Type | Department | Care Team | Description | +--------+ + + + + | 02/03/ | Hospital | Cardiac | | | | 2010 | Encounter | Non-Invasive Testing | | | | | | at [facility] | | | | | | [address] Mailcode: | | | | | | [address] | | | | | | Health and Healing, | | | | | | [address] | | | | | | [place], [place] | | | | | | [address] | | | | | | [phone] | | | +--------+ + + + [...] | | 2018 | Visit | | [address] | | | | | | [facility] [place] | | | | | | [address] | | | | | | [phone] | | | | | | | [...]
--- OUTSIDE RECORDS SUMMARY | ~2019-09-19 | XMS | Encounter Summary ---
Demographics + + + | Address | [address] | | | [place] [address] | + + + | Home Phone [...] Team Providers + +------+ + | Care Spot Checker Name | Role | Phone | [...] + + | 08/31/ | Refill | [facility] | Manolo Kirk | Medication Refill | | 2019 | | [facility] | MD [address] | | | | | PRIMARY CARE [address] | [address] | | | | | [address] | [place] [address] | | | | | [place], [place] | [phone] | | | | | [address] | | | | | | [phone] | | | +--------+--------+ + + + [...] | | | | | | [place] [address] | | | | | | [phone] | | | | | | | | +--------+ + + + + | 11/20/ | Implant | Cardiology | Daljit Singletary, | Remote Device | | 2018 | Monitor | | MD Chiquis Oro | Interrogation | | | | | [facility], | (Primary Dx); | | | | | [place] [address] | Presence of | | | | | [phone] | permanent cardiac | | | | [...]
--- OUTSIDE RECORDS SUMMARY | ~2019-09-19 | XMS | Encounter Summary ---
Demographics + + + | Address | [address] [place] [address] | | | [place] [address] | + + + | Home Phone [...] | | | | | , [place] [address] | | + + + + + Care Team Providers + +------+ + | Care Manager Zone Name | Role | Phone | + [...] as of this encounter Progress Notes Interface, Diving Fisher In - 07/19/2006 3:05 AM PDTCLINIC DATE: 06/13/2002 [facility] REFERRING PHYSICIAN: Eugene Vera D.O. [address] [place] [address] Mr. Sanchez is a new patient. He [...] to proceed. Martell Allen M.D. / KATTY [id number] / [id number] / [id number] / 32452 cc: Eugene Vera D.O. [address] [place], [place] [id number] signed by Jael George In at 07/19/2006 3:0 5 AM PDTdocumented in this encounter Plan of Treatment +--------+---------+ + + + | Date | Type | Specialty | Care Team | Description | +--------+---------+ + + + | 09/28/ | Office | Gastroenterology | Bridgette Rios, | | | 2019 | Visit | | [address] | | | | | | [place], [place] | | | | | | [address] | | | | | | [phone] | | | | | | | | +--------+---------+ + + + documented as of this encounter Visit Diagnoses Not on filedocumented in this encounter
--- OUTSIDE RECORDS SUMMARY | ~2019-09-19 | XMS | Encounter Summary ---
Demographics + + + | Address | [address] | | | [place] [address] | + + + | Home Phone [...] Team Providers + +------+ + | Care End Finder Forming Department Name | Role | Phone | [...] + + | 08/30/ | Refill | [facility] | Manolo Kirk | Medication Refill | | 2019 | | [facility] | MD [address] | | | | | PRIMARY CARE [address] | [address] | | | | | [address] | [place] [address] | | | | | [place], [place] | [phone] | | | | | [address] | | | | | | [phone] | | | +--------+--------+ + + + [...] | | | | | | [place] [address] | | | | | | [phone] | | | | | | | | +--------+ + + + + | 11/20/ | Implant | Cardiology | Daljit Singletary, | Remote Device | | 2018 | Monitor | | MD Chiquis Oro | Interrogation | | | | | [facility], | (Primary Dx); | | | | | [place] [address] | Presence of | | | | | [phone] | permanent cardiac | | | | [...]
--- OUTSIDE RECORDS SUMMARY | ~2019-09-19 | XMS | Encounter Summary ---
Demographics + + + | Address | [address] | | | [place] [address] | + + + | Home Phone [...] Providers + +------+ + | Care Leather Tanner Name | Role | Phone | [...] 2019 | | GASTROENTEROLOGY | [address] [place] | Recommendations | | | | [address] | [address] [place], [place] | | | | | [address] [place], [place] | [address] | | | | | [address] | | | | | | [phone] | | | +--------+ + + + [...] | | | | | | [place] [address] | | | | | | [phone] | | | | | | | | +--------+ + + + + | 11/20/ | Implant | Cardiology | Daljit Singletary, | Remote Device | | 2018 | Monitor | | MD [address] | Interrogation | | | | | [place], | (Primary Dx); | | | | | [place] [address] | Presence of | | | | | [phone] | permanent cardiac | | | | [...]
--- OUTSIDE RECORDS SUMMARY | ~2019-09-19 | XMS | Encounter Summary ---
Demographics + + + | Address | [address] | | | [place] [address] | + + + | Home Phone | | + + + | Preferred Language | Unknown | + + + | Marital Status | | + + + | Anabaptism Affiliation | 1013 | + + + | Race | Unknown | + + + | Ethnic Group | Unknown | + + + Author + + + | Author | [facility] (Historical as of | | | 07-08-19) | + + + | Organization | [facility] [employer] [facility] (Historical as of | | | [...] Team Providers + +------+ + | Care Mash Processing Operator Name | Role | Phone | [...] | | | | | involving | [place], [place] | [place], [place] | | | | | [place] | [address] | [address] | | | | | coronary | Phone: | Phone: | | | | | artery | [phone] | [phone] | | | | | without | Fax: | Fax: | | | | | angina | [phone] | [phone] | | | | | pectoris, | | | | | | | unspecified | | | | | | | whether | | | | | | | [place] or | | | | | | [...] + | 06/26/ | Telephone | [facility] | Geri Bear, | | | 2018 | | Primary Care [address] | INSTRUMENTATION FITTER | | | | | [address] | | | | | | [place], [place] | | | | | | [address] | | | | | | [phone] | | | +--------+ + + + [...] disease involving | | | | | [place] coronary | | | | | artery without | | | | | angina pectoris, | | | | | unspecified whether | | | | | [place] or | | | | | transplanted [...] + + | Coronary artery disease involving [place] coronary artery without angina pectoris, | | unspecified whether [place] or transplanted heart | + + | Chest pain, unspecified type | + + | Hypertension, unspecified type | + +
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
--- OUTSIDE RECORDS SUMMARY | ~2019-09-19 | XMS | Encounter Summary ---
Demographics + + + | Address | [address] [place] [address] | | | [place] [address] | + + + | Home Phone [...] | | | | | , [place] [address] | | + + + + + Care Team Providers + +------+ + | Care Order Worker Name | Role | Phone | [...] pain | Farooq Almaguer, | [address] | | | | | Bradycardia | DO [address] | [place] | | | | | Procedures | [address] | Mailcode: | | | | | | Palak Desai | [address] [place] | | | | | TRANSTHORACI | [facility] [place] | for Health | | | | | C | [address] | and Healing, | | | | | ECHOCARDIOGR | Phone: | Building [address] | | | | | AM, ADULT | [phone] | [place], [place] | | | | | | Fax: | [address] | | | | | | [phone] | Phone: | | | | | | | [phone] | +--------+--------+ + + + + Reason [...] | | | | | | [place] [address] | | | | | | | Phone: | | | | | | | [phone] | | | | | | | Fax: | | | | | | | [phone] | | +--------+--------+ + + + + Encounter Details +--------+---------+ + + + | Date | Type | Department | Care Team | Description | +--------+---------+ + + + | 02/03/ | Office | Cardiology General | Arlette Drew, | Chest pain (Primary | | 2010 | Visit | at [facility] [address] | MD | Dx); Bradycardia; | | | | [address] Mailcode: | | Pacemaker | | | | [facility] for | | | | | | Health and Healing, | | | | | | | | | | | | Floor [place], [place] | | | | | | [address] | | | | | | [phone] | | | +--------+---------+ + + + [...] per Dr. Drew's note. Farooq Jamil DO Power Plant Mechanic Clinical emergency vehicle technician/ Division of Cardiovascular Medicine ajaira Vaz RN - 02/09/2011 12:59 PM PDT PACEMAKER HISTORY Primary Care Provider: Darion Holden DO Health And Human Performance Professor: Arlette Drew MD Moe Sanchez is [...] pacemaker was put at the recommendation of Health And Human Performance Professor Dr. Singletary from [place]. [place]. Pt. states lala bhatti was put>1 [...] form tilt table testing but NA at [facility] May need to involve endocrine and [...] Dr. Omero DREW MD CARDIOLOGY - GENERAL [address] Mailcode: Ch[facility], [address] [facility] [address] documented in this en counter Plan of Treatment +--------+---------+ + + + | Date | Type | Specialty | Care Team | Description | +--------+---------+ + + + | 09/28/ | Office | Gastroenterology | Bridgette Rios, | | | 2018 | Visit | | [address] | | | | | | [place], [place] | | | | | | [address] | | | | | | [phone] | | | | | | | [...] + + + | [facility] ([facility]) | [facility] | | [facility] [place] [address] [address] [facility] | REGIONAL | | [place] [address] | LABORATORY | + + + + + + + + | Performing | Address | City/State/Zipcode | Phone Number | | Organization | | | | + + + + + | [facility] | [address] | [place] [address] | | | LABORATORY | | | [...] [facility] ([address] [facility]) | | | [facility] [address] | | | [place] [address] | | + + + + + + + + | Performing | Address | City/State/Zipcode | Phone Number | | Organization | | | | + + + + + | [facility] | [address] | [place] [address] | | | LABORATORY | | | [...] + + + + + | [facility] | [address] | [place] [address] | | | PATHOLOGY | [address] | | | + + + + + EJECTION FRACTION (02/03/2011 3:33 PM PDT) + +-------+ + + + | Component | Value | Ref Range | Performed | Pathologist | | | | | At | Signature | + +-------+ + + + | BIPLANE, EF | 59.1 | | [facility] DEPT | | | | | [...] DEPT OF | [address] | [place], [place] | | | CARDIOLOGY | [address] | [address] | | + + + + + [...] DEPT OF | [address] | [place], [place] | | | CARDIOLOGY | [address] | [address] | | + + + + + [...] view image for the detailed interpretation from [employer] results. | CARDIOLOGY | + + + + + + + + | Performing | Address | City/State/Zipcode | Phone Number | | Organization | | | | + + + + + | [facility] | [address] | [place], [place] | | | CARDIOLOGY | [address] | [address] | | + + + + + documented in this encounter Visit Diagnoses + + | Diagnosis | + + | Chest pain - Primary Chest pain, unspecified | + + | Bradycardia Other specified cardiac dysrhythmias | + + | Pacemaker Cardiac pacemaker in situ | + + documented in this encounter
--- OUTSIDE RECORDS SUMMARY | ~2019-09-19 | XMS | Encounter Summary ---
Demographics + + + | Address | [address] | | | [place] [address] | + + + | Home Phone [...] Providers + +------+ + | Care Cook Mess Name | Role | Phone | + +------+ + | Kirk French MD | PCP | Unavailable | + +------+ + Encounter Details +--------+ + + + + | Date | Type | Department | Care Team | Description | +--------+ + + + + | 06/19/ | Orders Only | [facility] | Fabrice Hylton, | Abnormal weight | | 2019 | | SYSTEM GENERIC OP | [address] | loss; Anxiety | | | | CONVERSION [address] | [address] [place], [place] | disorder; Chronic | | | | [address] [place], [place] | [address] | pain syndrome; | | | | [address] | | Obesity; Neuralgia | | | | [phone] | | and neuritis, | | | [...] | | | | | | [place] [id number] | | | | | | [phone] | | | | | | | | +--------+ + + + + | 11/20/ | Implant | Cardiology | Daljit Singletary, | Remote Device | | 2019 | Monitor | | MD Chiquis Antony [place] | Interrogation | | | | | [facility], | (Primary Dx); | | | | | [place] [address] | Presence of | | | | | [phone] | permanent cardiac | | | | [...]
--- OUTSIDE RECORDS SUMMARY | ~2019-09-19 | XMS | Encounter Summary ---
Demographics + + + | Address | [address] | | | [place] [address] | + + + | Home Phone [...] Providers + +------+ + | Care Supervisor Anodizing Name | Role | Phone | + [...] 2019 | | GASTROENTEROLOGY | [address], [place] | | | | | [address] [place] | [address] [place], [place] | | | | | [address] [place], [place] | [address] | | | | | [address] | | | | | | [phone] | | | +--------+ + + + [...] | | | | | | [place] [address] | | | | | | [phone] | | | | | | | | +--------+ + + + + | 11/20/ | Implant | Cardiology | Daljit Singletary, | Remote Device | | 2019 | Monitor | | MD [address] [facility] | Interrogation | | | | | [place], | (Primary Dx); | | | | | [place] [address] | Presence of | | | | | [phone] | permanent cardiac | | | | [...]
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
== END 2019-09-19 16:50 | disposition home or self-care (01) ==
LOC: ED 12:01
DX: K52.9 Noninfective gastroenteritis and colitis, unspecified (principal); I10 Essential (primary) hypertension; E78.00 Pure hypercholesterolemia, unspecified; Z88.0 Allergy status to penicillin; Z88.5 Allergy status to narcotic agent; Z88.1 Allergy status to other antibiotic agents; Z88.8 Allergy status to other drugs, medicaments and biological substances; Z79.899 Other long term (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; Z79.82 Long term (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
CPT/HCPCS: 80053; 83690; 85025; 96374; 96375; 99284-25; J1170; J2405; J2550; J7030

== ENCOUNTER 2019-10-04 12:02 | Emergency (ER) | payer MEDICARE ==
[~2019-10-04] VITALS: Ht 193 cm; Wt 98.9 kg
--- OUTSIDE RECORDS SUMMARY | ~2019-10-04 | XMS | Encounter Summary ---
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 Name | Role | Phone | + +------+ + | Michael Amanda DO | PCP | | + +------+ + Reason for Visit + + + | Reason | Comments | + + + | Follow-up | | + + + | Bradycardia | | + + + | Hypertension | | + + + Encounter Details +--------+---------+ + + + | Date | Type | Department | Care Team | Description | +--------+---------+ + + + | 06/25/ | Office | [facility] | [place], | SINUS BRADYCARDIA | | 2013 | Visit | CARDIOLOGY [address] | PARISA [place] [address] | (Primary Dx); | | | | [place], | [place], | Symptomatic PVCs; | | | | [place] [address] | [place] [address] | Coronary artery | | | | [phone] | [phone] | disease; | | | | | | Hypertension; | | | | | | Syncope; | | | | | | Hyperlipidemia | +--------+---------+ + + + Social History + +--------+ [...] + + + | Blood Pressure | 140/90 | 06/25/2014 12:41 PM | | | | | PDT | | + + + + + | Pulse | 78 | 06/25/2014 12:41 PM | | | | | PDT | | + + + + + | Temperature | - | - | | + + + + + | Respiratory Rate | 18 | 06/25/2014 12:41 PM | | | | | PDT | | + + + + + | Oxygen Saturation | - | - | | + + + + + | Inhaled Oxygen | - | - | | | Concentration | | | | + + + + + | Weight | 111.1 kg (245 lb) | 06/25/2014 12:41 PM | | | | | PDT | | + + + + + | Height | 193 cm (6' 4") | 06/25/2014 12:41 PM | | | | | PDT | | + + + + + | Body Mass Index | 29.82 | 06/25/2014 12:41 PM | | | | | PDT | | + + + + + documented in this encounter Progress Notes James JaneenPARISA villarreal - 06/25/2014 12:38 PM PDTFormatting of this note might be different f rom the original. PATIENT NAME: Moe Sanchez : 1960: AGE: 54 y.o. PRIMARY CARE: Michael Amanda DO OUTPATIENT FOLLOW UP VISIT Date of Service: 06/25/2014 HISTORY OF PRESENT ILLNESS: Moe Sanchez is a 54 y.o. male with a history of non-critical coronary artery d isease, hypertension, symptomatic bradycardia status post Medtronic dual-chamber permanent p acemaker implantation 06/14/09, frequent premature ventricular contractions status post ablat ion spring 2012, and bipolar disorder with anxiety. He is being seen today for follow up no n critical coronary artery disease and hypertension. He was last seen 05/14/2014 at which time he was to continue same therapeutic medical regim en and follow up in 2 months. Since that time, he was admitted over observation at [facility] for a chest pain. Aortogram revealed an aortic aneurysm that after comparis on with previous studies was unchanged and stable without signs of dissection and patient wa s discharged home with a diagnosis of atypical chest pain and anxiety. After that episode h aster has not had any more complaints of chest pain. Patient states that he has remained physic ally active by taking care of his 1 acre yard, mowing the lawn and taking care of his 12 wee k old puppy. He denies having any further episodes of chest pain that needed nitroglycerin sublingually. He states that he has discomfort every once in a while but not enough to use his nitroglycerin. He denies any shortness of breath, lightheadedness, dizziness or palpita tions or leg swelling. He states that he has been tired during the day. He has been diagno sed in the past with sleep apnea but he has not been using his CPAP at all. MEDICAL, SURGICAL, AND PERSONAL HISTORY Past Medical, Surgical, Family, and Social History are reviewed in EPIC. 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 LUMBAGO CHRONIC PAIN SYNDROME THROMBOCYTOPENIA FATIGUE ABDOMINAL PAIN, UNSPECIFIED SITE NECK PAIN, CHRONIC Syncope OBSTRUCTIVE SLEEP APNEA ORGANIC INSOMNIA UNSPECIFIED CENTRAL SLEEP APNEA CONDS CLASSIFIED ELSEWHERE ULCERATIVE COLITIS Chest pain SINUS BRADYCARDIA Pacemaker - Medtronic - [id number] Adapta - Implanted 06/14/2009 HEPATITIS B PUD FATTY LIVER DISEASE SUBSTANCE ABUSE, MULTIPLE DEPRESSION Hypoglycemia Symptomatic PVCs Tachycardia Preventative health care Coronary artery disease CURRENT MEDICATIONS Outpatient Encounter Prescriptions as of 06/25/2014 Medication Sig Dispense Refill amLODIPine (NORVASC) 5 mg tablet Take 2 tablets by mouth Daily. 60 tablet 6 Ascorbic Acid (VITAMIN C) 1000 MG tablet Take 1,000 mg by mouth Daily. aspirin 81 MG tablet Take 81 mg by mouth Daily. clonidine (CATAPRES) 0.2 MG tablet Take 1 tablet by mouth 3 times daily. 90 tablet 4 diazepam (VALIUM) 5 mg tablet Take 2.5 mg by mouth 2 times daily. diltiazem (CARDIZEM CD) 120 mg 24 hr capsule TAKE ONE CAPSULE BY MOUTH EVERY DAY 30 ca psule 5 diphenhydrAMINE (BENADRYL) 25 MG capsule Take 25 mg by mouth as needed. dronabinol (MARINOL) 10 MG capsule Take 10 mg by mouth 2 times daily (before meals). gabapentin (NEURONTIN) 600 MG tablet Take 600 mg by mouth 3 times daily. glucose blood test strips (ONE TOUCH ULTRA TEST) strip Check glucose for symptomatic hypoglycemia prn 30 each 2 HYDROmorphone (DILAUDID) 4 MG tablet Take 4 mg by mouth every 4 hours as needed. Done b y his pain clinic isosorbide mononitrate (IMDUR) 30 mg ER tablet Take 1 tablet by mouth Daily. 30 tablet 11 LORazepam (ATIVAN) 1 mg tablet 1/2 to 1 tab up to three times per day prn 20 tablet 0 Magnesium 500 MG CAPS Take 500 mg by mouth Daily. MELATONIN TABS, at bedtime as needed methylPREDNISolone (MEDROL DOSEPAK) 4 mg tablet Follow package directions. 21 tablet 0 metoprolol (TOPROL-XL) 200 MG 24 hr tablet Take 1 tablet by mouth Daily. 30 tablet 6 Misc Natural Products (OSTEO BI-FLEX/5-LOXIN ADVANCED PO) Take by mouth. Takes 2 table ts in the morning and 2 tablets at night nitroglycerin (NITROSTAT) 0.[address] 1 tablet under the tongue every 5 luz marcos as needed for Chest pain. 25 tablet 12 [place]-3 Fatty Acids (SALMON OIL-1000 PO) CAPS, one capsule by mouth daily twice daily ONE TOUCH DELICA LANCETS [facility] Check glucose as needed for hypoglycemia 100 each 3 pantoprazole (PROTONIX) 40 mg tablet Take 1 tablet by mouth Daily. 30 tablet 6 pravastatin (PRAVACHOL) 40 MG tablet take 1 tablet by mouth once daily 90 tablet 1 promethazine (PHENERGAN) 25 mg tablet Take 25 mg by mouth every 8 hours as needed. UNCODED MEDICATION Diagnosis: Obstructive Sleep Apnea ICD-9: 327.23 Length of Need: 99 Months 1 Device 0 valACYclovir (VALTREX) 500 mg tablet Take 1 tablet daily 90 tablet 3 ALLERGIES Allergies Allergen Reactions Alcohol-Fentanyl Clarithromycin Duloxetine Hydrocodone Penicillins Tramadol Hcl ROS Review of Systems Constitutional: Positive for malaise/fatigue. Respiratory: Negative for shortness of breath. Cardiovascular: Negative for chest pain, palpitations and leg swelling. Neurological: Negative for dizziness and weakness. Psychiatric/Behavioral: The patient is nervous/anxious. OBJECTIVE: PHYSICAL EXAM BP 140/90 | Pulse 78 | Resp 18 | Ht 1.93 m (6' 4") | Wt 111.131 kg (245 lb) | BMI 29.83 kg/ m2 Physical Exam Constitutional: He is oriented to person, place, and time. He appears well-developed and we ll-nourished. Adult male in no acute distress Neck: Normal carotid pulses and no JVD present. Carotid bruit is not present. Cardiovascular: Normal rate, regular rhythm, S1 normal, S2 normal and normal pulses. PMI i s not displaced. Exam reveals no gallop and no friction rub. Murmur heard. Systolic murmur is present with a grade of 1/6 Pulses: Carotid pulses are 2+ on the right side, and 2+ on the left side. Posterior tibial pulses are 2+ on the right side, and 2+ on the left side. Pulmonary/Chest: Effort normal and breath sounds normal. No accessory muscle usage. No resp iratory distress. He has no decreased breath sounds. He has no wheezes. He has no rhonchi. H e has no rales. Abdominal: Soft. Normal appearance, normal aorta and bowel sounds are normal. He exhibits n o abdominal bruit and no pulsatile midline mass. There is no hepatosplenomegaly. There is no tenderness. Musculoskeletal: He exhibits no edema. Neurological: He is alert and oriented to person, place, and time. Coordination normal. Skin: Skin is warm, dry and intact. No cyanosis. Nails show no clubbing. Psychiatric: He has a normal mood and affect. His mood appears not anxious. He does not exh ibit a depressed mood. ECG: Not done this visit. LAB RESULTS: LIPID Lab Results Component Value Date TRIG 88 05/27/2012 HDL 42 05/27/2012 LDL 173* 05/27/2012 CHOLHDL 3.1 08/08/2013 LDLEX 96 08/08/2013 HDLEX 51.0* 08/08/2013 TRIGEX 63 08/08/2013 CHOLEX 160 08/08/2013 CHEMISTRY Lab Results Component Value Date GLU 96 05/26/2014 NA 140 05/26/2014 K 3.6 05/26/2014 CL 107 05/26/2014 CO2 22* 05/26/2014 CALCIUM 9.4 05/26/2014 ALKPHOS 61 05/26/2014 AST 25 05/26/2014 ASTEX 35 01/25/2014 ALT 28 05/26/2014 ALTEX 27 01/25/2014 BILITOT 0.8 05/26/2014 CREA 0.89 05/26/2014 BUN 12 05/26/2014 EGFR >60 04/03/2013 EGFREX >60 01/25/2014 CREEX 0.77 01/25/2014 HEMATOLOGY Lab Results Component Value Date WBC 8.4 05/26/2014 HGB 16.7 05/26/2014 HCT 47.4 05/26/2014 PLT 147 05/26/2014 HGBEX 16.1 01/25/2014 I reviewed records from [facility] for emergency department visit o n 05/26/2014 ASSESSMENT: 1. Non-critical coronary artery disease: A. Normal exercise sestamibi stress test on 05/25/09. LVEF by gated SPECT was 53%. B. Echocardiogram from 12/30/12 shows a Mild left atrial dilatation. A normal left ventricular size, wall thickness and motion. Preserved left ventricular systolic func tion. LVEF is 65%. A mild aortic root dilatation measuring 3.9 cm in diameter. A mildly t hickened mitral valve with a mild mitral valve regurgitation. A mild aortic valve regurgita tion. Mild tricuspid valve regurgitation. C. Persantine sestamibi stress test done on shows a Persantine EKG i s negative. An abnormal Persantine sestamibi myocardial perfusion imaging study with a smal l sized, reversible defect of a mild stability of the proximal inferior, mid inferior and di stal inferior wall. This suggests the possibility of a myocardial ischemia of the right cor onary artery territory. A normal left ventricular size, wall thickness and motion. Preserv ed left ventricular systolic function. LVEF is 66 percent by gated SPECT. Of note, diaphra gmatic inferior wall soft tissue attenuation cannot completely be ruled out. D. [facility] 12/25/13, shows non critical coronary artery disease, mild ecstatic change to the l eft main artery, the coronary circulation is right dominant, normal left ventricular size, w all thickness and motion, preserved left ventricular systolic function, LVEF is 75%, normal systemic blood pressure, successful TR band application to the right radial artery. E. Today, patient states he has not had any further episodes of chest pain over the last m onth. He has not followed a structure exercise program, however, he is trying to stay physi elida active by working in his yard. He is in class I-II of [place] [employer] funct ional class. There are no signs or symptoms of overt congestive heart failure. On physical examination there are no signs of fluid overload. Patient is in therapy with statin, aspir in, beta edvin, and nitrates. 2. Symptomatic PVC's status post ablation: A. 48-hour Holter monitor from 01/20/10 shows predominant normal sinus rhythm wit h DDD pacing noted, heart rate 60 to 155 beats per minute, average 87 beats per minute; occa sional premature atrial contractions, including rare couplets; very frequent premature ventr icular contractions with occasional ventricular bigeminy noted. B. EP study and ablation for ventricular arrhythmia performed by Dr. Gambino at [facility] on 01/30/2013. Patient had spontaneous PVCs from 3 predominant morphology of left bundle branch block. Unfortunately, patient did have difficulty laying still during the procedure despite large amounts of sedation and coaching. After repeated a ttempts at ablation in one particular area, the patient continues to have rare PVCs, althoug h, definitely less than pre procedure. Patient tolerated the procedure, pacemaker was progr ammed to AAIR/DDDR lower rate of 78. And diltiazem was added to the regimen as well. Howev er, patient decided not to started diltiazem. Patient is scheduled to go back in 3 days to [place] for an attempt of ablation under general anesthesia. C. On 04/03/2013 patient underwent second attempt for PVC ablation under genera l anesthesia. According to the procedure notes from procedure a first and second ablation w ere performed in the areas mapped. After ablation, they were no longer spontaneous recurren ce of the PVC throughout the remainder of the procedure over a greater than 30 minute waitin g period. A "chari" of ablation lesion was performed and the area, because an area was ri ght next to arrange in the patient's anatomy due to restrictions caused the catheter to drop off the ridge they did hold breath brought to 30 seconds to allow for ablation of the lesio ns. The patient tolerated the procedure well with no immediate complications and they were unable to further interviews any more PVCs. D. Event monitor done on 11/10/2013 shows baseline transmission sinus rhythm at 73 beats per minute. There were a total of 5 events, no new symptoms waiting, palpitations , irregular heartbeat. All the transmissions were notable for sinus rhythm. No arrhythmias or ectopy were noted during any of the transmissions. E. Today, patient has no further complaints of episodes of palpitations, lightheadedness or dizziness. He is in class I-II of [place] 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 There are no signs or symptoms of overt congestive heart failure. There is no fluid retention on phys ical examination. Patient continues amlodipine, Cardizem and metoprolol. 3. Profound bradycardia associated with dizziness, lightheadedness, and syncope: A. The echocardiogram on 05/25/09 revealed a normal left ventricular size and sys tolic function, LVEF 65 to 70%. B. Medtronic DDD permanent pacemaker implantation on 06/14/[address] Daljit masters. C. Last device interrogation on 02/2014 shows a normal stable function. 4. Hypertension. A. Today blood pressure is well controlled. 5. Lightheadedness and dizziness/ presyncope: A. Episode of presyncope 05/28/10 evaluated in the emergency department, thought to have vasovagal symptoms. 6. History of cigarette smoking. 7. Bipolar disease with anxiety/depression 8. Ascending thoracic aorta aneurysm: A. CTA of chest and abdomen done on 02/27/2014 revealed a 4 cm aneurysmal dilatation of th e ascending thoracic aorta. This may be followed sequentially at 6 month intervals with non contrast CT of the chest. Prior low back and neck surgeries. Pacemaker. Fatty infiltration o f the liver. No renal stenoses or obstructions identified and no evidence of dissection. 2 l eft renal arteries. B. Aneurysmal dilation of the ascending aorta measuring up to 3.9 cm in diameter at the le emy of the right pulmonary artery. No evidence of dissection or periaortic fluid collection. No filling defects in the pulmonary arterial system to suggest pulmonary embolism C. Patient was recommended the patient will follow up in [address] PLAN: 1. Continue same therapeutic medical regimen. Patient has been strongly encouraged to try to increase his activity to argue vascular exercise 30 minutes a day 5 days a week. He has also been encouraged to keep his blood pressure within normal limits. 2. Patient also has been encouraged to utilize his CPAP more adequately on a daily basis. 3. Follow up appointment in 3 months with device interrogation and office visit or sooner if any concerns I, PARISA Russell, saw this patient under the direct supervision of Daljit Singletary MD Portions of this report were transcribed using voice recognition software. Every effort wa s made to ensure accuracy; however, inadvertent computerized employee benefits administrator errors may be pre sent. Electronically signed by: PARISA Russell 06/25/2014 12:38 documented in this encounter Plan of Treatment +--------+ + + + + | Date | Type | Specialty | Care Team | Description | +--------+ + + + + | 12/19/ | Office | Cardiology | [place], | | | 2018 | Visit | | PARISA [place] [address] | | | | | | [place], | | | | | | [place] [address] | | | | | | [phone] | | | | | | | | +--------+ + + + + | 11/20/ | Implant | Cardiology | Daljit Singletary, | Remote Device | | 2018 | Monitor | | [address] [place] | Interrogation | | | | | [place], | (Primary Dx); | | | | | [place] [id number] | Presence of | | | | | [phone] | permanent cardiac | | | | | | pacemaker; | | | | | | Sinoatrial node | | | | | | dysfunction (HCC) | | | | | | with symptomatic | | | | | | bradycardia | +--------+ + + + + documented as of this encounter Visit Diagnoses + + | Diagnosis | + + | SINUS BRADYCARDIA - Primary Sinoatrial node dysfunction | + + | Symptomatic PVCs Other premature beats | + + | Coronary artery disease Coronary atherosclerosis of unspecified type of vessel, | | [place] or graft | + + | Hypertension Unspecified essential hypertension | + + | Syncope Syncope and collapse | + + | Hyperlipidemia Other and unspecified hyperlipidemia | + + documented in this encounter
--- OUTSIDE RECORDS SUMMARY | ~2019-10-04 | XMS | Encounter Summary ---
Demographics + + + | Address | [address] | | | [place] [address] | + + + | Home Phone | | + + + | Preferred Language | Unknown | + + + | Marital Status | | + + + | Confucianist Affiliation | 1013 | + + + | Race | Unknown | + + + | Ethnic Group | Unknown | + + + Author + + + | Author | [facility] | | | and [place] | + + + | Organization | [facility] | | | and [...] Team Providers + +------+ + | Care Tax Compliance Representative Name | Role | Phone | + +------+ + | Kirk French MD | PCP | | + +------+ + Encounter Details +--------+ + + + + | Date | Type | Department | Care Team | Description | +--------+ + + + + | 12/29/ | Abstract | [facility] | Silvia, | | | 2017 | | CARDIOLOGY [address] | [address] | | | | | [place], | [place], | | | | | [place] [address] | [place] [address] | | | | | [phone] | [phone] | | | | | | | [...] 2018 | Visit | | [address] | | | | | | [place], | | | | | | [place] [address] | | | | | | [phone] | | | | | | | | +--------+ + + + + | 11/20/ | Implant | Cardiology | Daljit Singletary, | Remote Device | | 2018 | Monitor | | [address] [place] | Interrogation | | | | | [place], | (Primary Dx); | | | | | [place] [address] | Presence of | | | | | [phone] | permanent cardiac | | | | [...] | + +--------+ + + + | EXTERNAL LAB: PTT | Routin | 11/05/2016 | | Results for this | | | e | 10:20 AM | | procedure are in the | | | | PST | | results section. | + +--------+ + + + | EXTERNAL LAB: BUN | Routin | 11/05/2016 | | Results for this | | | e | 10:20 AM | | procedure are in the | | | | PST | | results section. | + +--------+ + + + | EXTERNAL LAB: | Routin | 11/05/2016 | | Results for this | | GLUCOSE | e | 10:20 AM | | procedure are in the | | | | PST | | results section. | + +--------+ + + + | EXTERNAL LAB: | Routin | 11/05/2016 | | Results for this | | TROPONIN T | e | 10:20 AM | | procedure are in the | | | | PST | | results section. | + +--------+ + + + | EXTERNAL LAB: ALT | Routin | 11/05/2016 | | Results for this | | | e | 10:20 AM | | procedure are in the | | | | PST | | results section. | + +--------+ + + + | EXTERNAL LAB: AST | Routin | 11/05/2016 | | Results for this | | | e | 10:20 AM | | procedure are in the | | | | PST | | results section. | + +--------+ + + + | EXTERNAL LAB: | Routin | 11/05/2016 | | Results for this | | ALKALINE PHOSPHATASE | e | 10:20 AM | | procedure are in the | | | | PST | | results section. | + +--------+ + + + | EXTERNAL LAB: | Routin | 11/05/2016 | | Results for this | | BILIRUBIN, TOTAL | e | 10:20 AM | | procedure are in the | | | | PST | | results section. | + +--------+ + + + | EXTERNAL LAB: | Routin | 11/05/2016 | | Results for this | | ALBUMIN | e | 10:20 AM | | procedure are in the | | | | PST | | results section. | + +--------+ + + + | EXTERNAL LAB: | Routin | 11/05/2016 | | Results for this | | PROTEIN, TOTAL | e | 10:20 AM | | procedure are in the | | | | PST | | results section. | + +--------+ + + + | EXTERNAL LAB: | Routin | 11/05/2016 | | Results for this | | CALCIUM | e | 10:20 AM | | procedure are in the | | | | PST | | results section. | + +--------+ + + + | EXTERNAL LAB: CARBON | Routin | 11/05/2016 | | Results for this | | DIOXIDE | e | 10:20 AM | | procedure are in the | | | | PST | | results section. | + +--------+ + + + | EXTERNAL LAB: | Routin | 11/05/2016 | | Results for this | | CHLORIDE | e | 10:20 AM | | procedure are in the | | | | PST | | results section. | + +--------+ + + + | EXTERNAL LAB: | Routin | 11/05/2016 | | Results for this | | POTASSIUM | e | 10:20 AM | | procedure are in the | | | | PST | | results section. | + +--------+ + + + | EXTERNAL LAB: SODIUM | Routin | 11/05/2016 | | Results for this | | | e | 10:20 AM | | procedure are in the | | | | PST | | results section. | + +--------+ + + + | EXTERNAL LAB: CBC | Routin | 11/05/2016 | | Results for this | | | e | 10:20 AM | | procedure are in the | | | | PST | | results section. | + +--------+ + + + | EXTERNAL LAB: | Routin | 11/05/2016 | | Results for this | | PROTIME INR | e | 10:20 AM | | procedure are in the | | | | PST | | results section. | + +--------+ + + + | EXTERNAL LAB: EGFR | Routin | 11/05/2016 | | Results for this | | | e | 10:20 AM | | procedure are in the | | | | PST | | results section. | + +--------+ + + + | EXTERNAL LAB: | Routin | 11/05/2016 | | Results for this | | CREATININE | e | 10:20 AM | | procedure are in the | | | | PST | | results section. | + +--------+ + + + | CBC WITH | Routin | 11/05/2016 | | Results for this | | DIFFERENTIAL | e | 9:05 AM | | procedure are in the | | | | PST | | results section. | + +--------+ + + + | COMPREHENSIVE | Routin | 11/05/2016 | | Results for this | | METABOLIC PANEL | e | 9:05 AM | | procedure are in the | | | | PST | | results section. | + +--------+ + + + documented in this encounter Results External Lab: PTT (11/05/2016 10:20 AM PST) + +-------+ + + + | Component | Value | Ref Range | Performed | Pathologist | | | | | At | Signature | + +-------+ + + + | PTT, | 31.9 | 22.9 - 41.3 | EXTERNAL | | | External | | | LAB | | + +-------+ + + + + + | Resulting Agency Comment | + + | [facility] | + + + +---------+ + + | Performing | Address | City/State/Zipcode | Phone Number | | Organization | | | | + +---------+ + + | EXTERNAL LAB | | | | + +---------+ + + External Lab: YULIANA (11/05/2016 10:20 AM PST) + +-------+ + + + | Component | Value | Ref Range | Performed | Pathologist | | | | | At | Signature | + +-------+ + + + | YULIANA, | 13 | 6 - 23 | EXTERNAL | | | External | | | LAB | | + +-------+ + + + + + | Resulting Agency Comment | + + | [facility] | + + + +---------+ + + | Performing | Address | City/State/Zipcode | Phone Number | | Organization | | | | + +---------+ + + | EXTERNAL LAB | | | | + +---------+ + + External Lab: Glucose (11/05/2016 10:20 AM PST) + +-------+ + + + | Component | Value | Ref Range | Performed | Pathologist | | | | | At | Signature | + +-------+ + + + | Glucose, | 94 | 70 - 100 | EXTERNAL | | | External | | | LAB | | + +-------+ + + + + + | Resulting Agency Comment | + + | [facility] | + + + +---------+ + + | Performing | Address | City/State/Zipcode | Phone Number | | Organization | | | | + +---------+ + + | EXTERNAL LAB | | | | + +---------+ + + External Lab: Troponin T (11/05/2016 10:20 AM PST) + +--------+ + + + | Component | Value | Ref Range | Performed | Pathologist | | | | | At | Signature | + +--------+ + + + | Troponin T, | <0.010 | | EXTERNAL | | | External | | | LAB | | + +--------+ + + + + + | Resulting Agency Comment | + + | [facility] | + + + +---------+ + + | Performing | Address | City/State/Zipcode | Phone Number | | Organization | | | | + +---------+ + + | EXTERNAL LAB | | | | + +---------+ + + External Lab: ALT (11/05/2016 10:20 AM PST) + +-------+ + + + | Component | Value | Ref Range | Performed | Pathologist | | | | | At | Signature | + +-------+ + + + | ALT, | 27 | 7 - 52 | EXTERNAL | | | External | | | LAB | | + +-------+ + + + + + | Resulting Agency Comment | + + | [facility] | + + + +---------+ + + | Performing | Address | City/State/Zipcode | Phone Number | | Organization | | | | + +---------+ + + | EXTERNAL LAB | | | | + +---------+ + + External Lab: AST (11/05/2016 10:20 AM PST) + +-------+ + + + | Component | Value | Ref Range | Performed | Pathologist | | | | | At | Signature | + +-------+ + + + | AST, | 27 | 13 - 39 | EXTERNAL | | | External | | | LAB | | + +-------+ + + + + + | Resulting Agency Comment | + + | [facility] | + + + +---------+ + + | Performing | Address | City/State/Zipcode | Phone Number | | Organization | | | | + +---------+ + + | EXTERNAL LAB | | | | + +---------+ + + External Lab: Alkaline Phosphatase (11/05/2016 10:20 AM PST) + +-------+ + + + | Component | Value | Ref Range | Performed | Pathologist | | | | | At | Signature | + +-------+ + + + | ALP, | 56 | 30 - 128 | EXTERNAL | | | External | | | LAB | | + +-------+ + + + + + | Resulting Agency Comment | + + | [facility] | + + + +---------+ + + | Performing | Address | City/State/Zipcode | Phone Number | | Organization | | | | + +---------+ + + | EXTERNAL LAB | | | | + +---------+ + + External Lab: Bilirubin, Total (11/05/2016 10:20 AM PST) + +-------+ + + + | Component | Value | Ref Range | Performed | Pathologist | | | | | At | Signature | + +-------+ + + + | Bilirubin, | 1.0 | 0 - 1.2 | EXTERNAL | | | Total, | | | LAB | | | External | | | | | + +-------+ + + + + + | Resulting Agency Comment | + + | [facility] | + + + +---------+ + + | Performing | Address | City/State/Zipcode | Phone Number | | Organization | | | | + +---------+ + + | EXTERNAL LAB | | | | + +---------+ + + External Lab: Albumin (11/05/2016 10:20 AM PST) + +-------+ + + + | Component | Value | Ref Range | Performed | Pathologist | | | | | At | Signature | + +-------+ + + + | Albumin, | 4.1 | 3.5 - 5 | EXTERNAL | | | External | | | LAB | | + +-------+ + + + + + | Resulting Agency Comment | + + | [facility] | + + + +---------+ + + | Performing | Address | City/State/Zipcode | Phone Number | | Organization | | | | + +---------+ + + | EXTERNAL LAB | | | | + +---------+ + + External Lab: Protein, Total (11/05/2016 10:20 AM PST) + +-------+ + + + | Component | Value | Ref Range | Performed | Pathologist | | | | | At | Signature | + +-------+ + + + | Protein, | 6.6 | 6 - 8 | EXTERNAL | | | Total, | | | LAB | | | External | | | | | + +-------+ + + + + + | Resulting Agency Comment | + + | [facility] | + + + +---------+ + + | Performing | Address | City/State/Zipcode | Phone Number | | Organization | | | | + +---------+ + + | EXTERNAL LAB | | | | + +---------+ + + External Lab: Calcium (11/05/2016 10:20 AM PST) + +-------+ + + + | Component | Value | Ref Range | Performed | Pathologist | | | | | At | Signature | + +-------+ + + + | Calcium, | 9.2 | 8.4 - 10.2 | EXTERNAL | | | External | | | LAB | | + +-------+ + + + + + | Resulting Agency Comment | + + | [facility] | + + + +---------+ + + | Performing | Address | City/State/Zipcode | Phone Number | | Organization | | | | + +---------+ + + | EXTERNAL LAB | | | | + +---------+ + + External Lab: Carbon Dioxide (11/05/2016 10:20 AM PST) + +-------+ + + + | Component | Value | Ref Range | Performed | Pathologist | | | | | At | Signature | + +-------+ + + + | Carbon | 25 | 19 - 31 | EXTERNAL | | | Dioxide, | | | LAB | | | External | | | | | + +-------+ + + + + + | Resulting Agency Comment | + + | [facility] | + + + +---------+ + + | Performing | Address | City/State/Zipcode | Phone Number | | Organization | | | | + +---------+ + + | EXTERNAL LAB | | | | + +---------+ + + External Lab: Chloride (11/05/2016 10:20 AM PST) + +-------+ + + + | Component | Value | Ref Range | Performed | Pathologist | | | | | At | Signature | + +-------+ + + + | Chloride, | 103 | 95 - 112 | EXTERNAL | | | External | | | LAB | | + +-------+ + + + + + | Resulting [facility] Comment | + + | [facility] | + + + +---------+ + + | Performing | Address | City/State/Zipcode | Phone Number | | Organization | | | | + +---------+ + + | EXTERNAL LAB | | | | + +---------+ + + External Lab: Potassium (11/05/2016 10:20 AM PST) + +---------+ + + + | Component | Value | Ref Range | Performed | Pathologist | | | | | At | Signature | + +---------+ + + + | Potassium, | 3.4 (A) | 3.6 - 5.1 | EXTERNAL | | | External | | | LAB | | + +---------+ + + + + + | Resulting Agency Comment | + + | [facility] | + + + +---------+ + + | Performing | Address | City/State/Zipcode | Phone Number | | Organization | | | | + +---------+ + + | EXTERNAL LAB | | | | + +---------+ + + External Lab: Sodium (11/05/2016 10:20 AM PST) + +-------+ + + + | Component | Value | Ref Range | Performed | Pathologist | | | | | At | Signature | + +-------+ + + + | Sodium, | 136 | 132 - 143 | EXTERNAL | | | External | | | LAB | | + +-------+ + + + + + | Resulting Agency Comment | + + | [facility] | + + + +---------+ + + | Performing | Address | City/State/Zipcode | Phone Number | | Organization | | | | + +---------+ + + | EXTERNAL LAB | | | | + +---------+ + + External Lab: MONET (11/05/2016 10:20 AM PST) + +-------+ + + + | Component | Value | Ref Range | Performed | Pathologist | | | | | At | Signature | + +-------+ + + + | WBC, | 7.3 | 4.5 - 11 | EXTERNAL | | | External | | | LAB | | + +-------+ + + + | HGB, | 16.3 | 13.5 - 18 | EXTERNAL | | | External | | | LAB | | + +-------+ + + + | HCT, | 49.7 | 41 - 50 | EXTERNAL | | | External | | | LAB | | + +-------+ + + + | PLT, | 162 | 140 - 440 | EXTERNAL | | | External | | | LAB | | + +-------+ + + + | Neutrophils | 50.4 | 39 - 80 | EXTERNAL | | | %, | | | LAB | | | External | | | | | + +-------+ + + + | Lymphocytes | 37.8 | 24 - 44 | EXTERNAL | | | %, | | | LAB | | | External | | | | | + +-------+ + + + | Monocytes | 9.9 | 0 - 12 | EXTERNAL | | | %, External | | | LAB | | + +-------+ + + + | Eosinophils | 2.0 | 0 - 6 | EXTERNAL | | | %, | | | LAB | | | External | | | | | + +-------+ + + + | RBC, | 5.12 | 4.3 - 5.7 | EXTERNAL | | | External | | | LAB | | + +-------+ + + + | MCV, | 97 | 81 - 99 | EXTERNAL | | | External | | | LAB | | + +-------+ + + + | RDW, | 11 | 10 - 15 | EXTERNAL | | | External | | | LAB | | + +-------+ + + + + + | Resulting Agency Comment | + + | [facility] | + + + +---------+ + + | Performing | Address | City/State/Zipcode | Phone Number | | Organization | | | | + +---------+ + + | EXTERNAL LAB | | | | + +---------+ + + External Lab: Marcelina CHOWDHURY (11/05/2016 10:20 AM PST) + +-------+ + + + | Component | Value | Ref Range | Performed | Pathologist | | | | | At | Signature | + +-------+ + + + | INR, | 1.0 | 0 - 3.5 | EXTERNAL | | | External | | | LAB | | + +-------+ + + + | PT, | 13.1 | 11.9 - 15.1 | EXTERNAL | | | External | | | LAB | | + +-------+ + + + + + | Specimen | + + | Blood specimen | | (specimen) | + + + + | Resulting Agency Comment | + + | [facility] | + + + +---------+ + + | Performing | Address | City/State/Zipcode | Phone Number | | Organization | | | | + +---------+ + + | EXTERNAL LAB | | | | + +---------+ + + External Lab: eGFR (11/05/2016 10:20 AM PST) + +-------+ + + + | Component | Value | Ref Range | Performed | Pathologist | | | | | At | Signature | + +-------+ + + + | eGFR, | 97 | 60 - 999 | EXTERNAL | | | External | | | LAB | | + +-------+ + + + + + | Specimen | + + | Blood specimen | | (specimen) | + + + + | Resulting Agency Comment | + + | [facility] | + + + +---------+ + + | Performing | Address | City/State/Zipcode | Phone Number | | Organization | | | | + +---------+ + + | EXTERNAL LAB | | | | + +---------+ + + External Lab: Creatinine (11/05/2016 10:20 AM PST) + +-------+ + + + | Component | Value | Ref Range | Performed | Pathologist | | | | | At | Signature | + +-------+ + + + | Creatinine, | 0.82 | 0.7 - 1.33 | EXTERNAL | | | External | | | LAB | | + +-------+ + + + + + | Specimen | + + | Blood specimen | | (specimen) | + + + + | Resulting Agency Comment | + + | [facility] | + + + +---------+ + + | Performing | Address | City/State/Zipcode | Phone Number | | Organization | | | | + +---------+ + + | EXTERNAL LAB | | | | + +---------+ + + CBC with Differential (11/05/2016 9:05 AM PST) + +-------+ + + + | Component | Value | Ref Range | Performed | Pathologist | | | | | At | Signature | + +-------+ + + + | MCH | 32.0 | 26.0 - 33.0 pg | | | + +-------+ + + + | MCHC | 33.0 | 31.0 - 37.0 % | | | + +-------+ + + + | % Basophils | 0.1 | 1.0 % | | | + +-------+ + + + + + | Specimen | + + | Blood specimen | | (specimen) | + + Comprehensive Metabolic Panel (11/05/2016 9:05 AM PST) + +-------+ + + + | Component | Value | Ref Range | Performed | Pathologist | | | | | At | Signature | + +-------+ + + + | Anion Gap | 11 | 7 - 21 mmol/L | | | + +-------+ + + + | BUN/Creatin | 15.9 | 6.0 - 28.6 | | | | ine Ratio | | | | | + +-------+ + + + | Globulin | 2.5 | 1.8 - 3.5 | | | + +-------+ + + + + + | Specimen | + + | Blood specimen | | (specimen) | + + documented in this encounter Visit Diagnoses Not on filedocumented in this encounter"
--- OUTSIDE RECORDS SUMMARY | ~2019-10-04 | XMS | Encounter Summary ---
Demographics + + + | Address | [address] | | | [place] [address] | + + + | Home Phone | | + + + | Preferred Language | Unknown | + + + | Marital Status | | + + + | Druze Affiliation | 1013 | + + + | Race | Unknown | + + + | Ethnic Group | Unknown | + + + Author + + + | Author | [facility] | | | and [place] | + + + | Organization | [facility] | | | [...] Team Providers + +------+ + | Care Horticulture Superintendent Name | Role | Phone | + +------+ + PCP | Unavailable | + +------+ + Encounter Details +--------+ + + + + | Date | Type | Department | Care Team | Description | +--------+ + + + + | 10/26/ | Hospital | [facility] | | | | 1994 | Encounter | [facility] | | | | | | CENTER [address] | | | | | | [place] | | | | | | [address] | | | | | | [phone] | | | +--------+ + + + [...] [place], | | | | | | [place] [address] | | | | | | [phone] | | | | | | | | +--------+ + + + + | 11/20/ | Implant | Cardiology | Daljit Singletary, | Remote Device | | 2018 | Monitor | | [address] [facility] | Interrogation | | | | | [place], | (Primary Dx); | | | | | [place] [address] | Presence of | | | | | [phone] | permanent cardiac | | | | [...]
--- OUTSIDE RECORDS SUMMARY | ~2019-10-04 | XMS | Encounter Summary ---
Demographics + + + | Address | [address] | | | [place] [address] | + + + | Home Phone | | + + + | Preferred Language | Unknown | + + + | Marital Status | | + + + | Baptist Affiliation | 1013 | + + + | Race | Unknown | + + + | Ethnic Group | Unknown | + + + Author + + + | Author | [facility] | | | and [place] | + + + | Organization | [facility] | | | [...] Team Providers + +------+ + | Care Waxer Tender Name | Role | Phone | + +------+ + PCP | Unavailable | + +------+ + Encounter Details +--------+ + + + + | Date | Type | Department | Care Team | Description | +--------+ + + + + | 08/04/ | Abstract | [facility] | [facility] | | | 2011 | | Conversion Location | SR | | | | | [phone] | | | +--------+ + + + [...] + | Blood Pressure | 120/88 | 06/14/2012 12:00 AM | | | | | PDT | | + + + + + | Pulse | - | - | | + + + + + | Temperature | - | - | | + + + + + | Respiratory Rate | - | - | | + + + + + | Oxygen Saturation | - | - | | + + + + + | Inhaled Oxygen | - | - | | | Concentration | | | | + + + + + | Weight | 108 kg (238 lb 1.6 | 06/14/2012 12:00 AM | | | | oz) | PDT | | + + + + + | Height | 193 cm (6' 4") | 01/31/2008 12:00 AM | | | | | PDT | | + + + + + | Body Mass Index | 31.65 | 02/17/2013 12:00 AM | | | | | PDT | | + + + + + documented in this encounter Plan of Treatment +--------+ + + + + | Date | Type | Specialty | Care Team | Description | +--------+ + + + + | 11/09/ | Office | Cardiology | Silvia, | | | 2019 | Visit | | PARISA [address] | | | | | | [place], | | | | | | [place] [address] | | | | | | [phone] | | | | | | | | +--------+ + + + + | 11/20/ | Implant | Cardiology | Daljit Singletary, | Remote Device | | 2019 | Monitor | | [place] [address] [facility] | Interrogation | | | | | [place], | (Primary Dx); | | | | | [place] [address] | Presence of | | | | | [phone] | permanent cardiac | | | | [...] | + +--------+ + + + | ENDOSCOPY, COLON, | Routin | 02/05/2009 | | Results for this | | DIAGNOSTIC | e | 12:00 AM | | procedure are in the | | | | PDT | | results section. | + +--------+ + + + documented in this encounter Results ENDOSCOPY, COLON, DIAGNOSTIC (02/05/2009 12:00 AM PDT) + + | Specimen | + + | | + + + + + | Narrative | Performed At | + + + | | | + + + documented in this encounter Visit Diagnoses Not on filedocumented in this encounter
--- OUTSIDE RECORDS SUMMARY | ~2019-10-04 | XMS | Encounter Summary ---
Demographics + + + | Address | [id number] [place] [address] | | | [place] [address] | + + + | Home Phone | | + + + | Preferred Language | Unknown | + + + | Marital Status | | + + + | Adventism Affiliation | Unknown | + + + | Race | White | + + + | Ethnic Group | Not or | + + + Author + + + | Author | [facility] | + + + | Organization | [facility] | + + + | Address | Unknown | + + + | Phone | Unavailable | + + + Support + + + + + | Name | Relationship | Address | Phone | + + + + + | Rachel Valencia | [address] | [place] | | | | | [address] | | + + + + + Care Team Providers + +------+ + | Care Casting Machine Service Operator Name | Role | Phone | + +------+ + | Darion Holden DO | PCP | | + +------+ + Reason for Referral Diagnostic Testing (Routine) +--------+--------+ + + + [...] Bradycardia | DO [address] | [place] | | | | | Procedures | [address] | Mailcode: | | | | | | [place] | [facility] | | | | | TRANSTHORACI | [place], [place] | for Health | | | | | C | [address] | and Healing, | | | | | ECHOCARDIOGR | Phone: | Building [address] | | | | | AM, ADULT | [phone] | [place], [place] | | | | | | Fax: | [address] | | | | | | [phone] | Phone: | | | | | | | [phone] | +--------+--------+ + + + + Reason for Visit + + + | Reason | Comments | + + + | New patient | | | consultation | | + + + Office Visit - E/M Services (Routine) +--------+--------+ + + + + | Status | Reason | Specialty | Diagnoses / | Referred By | Referred To | | | | | Procedures | Contact | Contact | +--------+--------+ + + + + | Closed | | Cardiology | | Adina, | Terrence, | | | | | | DO [address] | Arlette Tolliver MD | | | | | | [facility] | | | | | | | PHYSICIAN | | | | | | | [facility] | | | | | | | [facility] | | | | | | [facility] | | | | | | | [facility] [address] | | | | | | | [address] | | | | | | | [place], | | | | | | | [place] [address] | | | | | | | Phone: | | | | | | | [phone] | | | | | | | Fax: | | | | | | | [phone] | | +--------+--------+ + + + + Encounter Details +--------+---------+ + + + | Date | Type | Department | Care Team | Description | +--------+---------+ + + + | 02/03/ | Office | Cardiology General | Arlette Drew, | Chest pain (Primary | | 2010 | Visit | at [facility] [address] | MD | Dx); Bradycardia; | | | | [address] Mailcode: | | Pacemaker | | | | [address] [facility] | | | | | | Health and Healing, | | | | | | | | | | | | Floor [place], [place] | | | | | | [address] | | | | | | [phone] | | | +--------+---------+ + + + Social History + +-------+ [...] + + + | Blood Pressure | 126/79 | 02/03/2011 1:44 PM | | | | | PDT | | + + + + + | Pulse | 70 | 02/03/2011 1:44 PM | | | | | PDT | | + + + + + | Temperature | 37.2 C (98.9 F) | 02/03/2011 1:44 PM | | | | | PDT | | + + + + + | Respiratory Rate | - | - | | + + + + + | Oxygen Saturation | 97% | 02/03/2011 1:44 PM | | | | | PDT | | + + + + + | Inhaled Oxygen | - | - | | | Concentration | | | | + + + + + | Weight | 106 kg (233 lb 11.2 | 02/03/2011 1:44 PM | | | | oz) | PDT | | + + + + + | Height | 193 cm (6' 4") | 02/03/2011 1:44 PM | | | | | PDT | | + + + + + | Body Mass Index | 28.45 | 02/03/2011 1:44 PM | | | | | PDT | | + + + + + documented in this encounter Progress Notes Farooq Jamil DO - 02/17/2011 5:50 PM PDTATTENDING NOTE: I saw and evaluated Mr. Sanchez with Dr. Drew. Management discussed in detail. I agree wit h the findings, assessment and plan of care as per Dr. Drew's note. Farooq Jamil DO Poss[employer] Trapper Clinical flight radio officer/ Division of Cardiovascular Medicine Yajaira Borges, [place] - 02/09/2011 12:59 PM PDT PACEMAKER HISTORY Primary Care Provider: Darion Holden DO Tour Guide: Arlette Drew MD Moe Sanchez is a 50 y.o. male. 1. Chest pain (786.50F) 2. Bradycardia (427.89P) Device: Medtronic Adapta [id number] Implanted:06/14/09 LINDA: ADVISORY: NO Mode: AAIR-DDDR Lower Rate: 70 Upper Rate: 130 Demand Rate: 70 Magnet Rate: Battery Voltage: 2.80 Cell Impedance: 178 Estimated battery longevity: 7.5years Patient is not pacer dependent-underlying HR sinus josie, rate 35 Telephone monitoring is: off Output (v) Pulse Width (ms) Sensitivity (mv) Atrium 1.5 0.4 0.70 Right Ventricle 20. 0.4 5.6 TESTING: Threshold testing was performed. ATRIUM: A threshold volts: 0.5 A threshold PW: 0.4 P Wave Amplitude: 2.8-4.0 A lead impedance: 391 RT VENTRICLE RV threshold volts: 0.75 RV threshold PW: 0.4 RV lead impedance: 515 R Wave Amplitude: 22.4-31 Programming Changes: Mode turned on rate responsiveness, turned off rate drop response in o rder to do so. Adjusted outputs as per strength duration threshold curve. Hospitalizations: PHYSICAL EXAM: Vitals: Visit Vitals Item Reading BP 126/79 Pulse 70 Temp (Src) 37.2 C (98.9 F) (Oral) Ht 1.93 m (6' 4") Wt 106.006 kg (233 lb 11.2 oz) SpO2 97% BMI 28.45 kg/(m^2) Rhythm: A pace V sense Current outpatient prescriptions Medication Sig ASCORBIC ACID (VITAMIN C ORAL) Take 1 Tab by mouth once daily. Aspirin 81 mg Oral Tablet Take 81 mg by mouth once daily. HYDROmorphone (DILAUDID) 4 mg Oral Tablet Take by mouth. 1-2 every 4-6 hours lisinopril (ZESTRIL) 20 mg Oral Tablet Take 10 mg by mouth once daily. 1/2 tablet at be dtime metoprolol tartrate 50 mg Oral Tablet Take 50 mg by mouth two times daily. MULTI-VITAMIN ORAL Take 1 Tab by mouth once daily. oxyCODONE CR (OXYCONTIN) 20 mg Oral Tablet Extended Release 12 hr Take by mouth. 2 tab lets two to three times daily oxyCODONE, immediate release, 30 mg Oral Tablet Take by mouth. 1-2 tablets every 4-6 h ours SALMON OIL/OMEGA-3 FATTY ACIDS (SALMON OIL-1000 ORAL) Take 2 Caps by mouth once daily. Notes: Had pacer implanted in 2008 for diagnosis of bradycardia. He is 74.8% Apace V sense , 32.4% Asense V sense. Not much heart rate variability- turned on rate responsiveness, but needed to turn off rate drop response feature. Plan RTC 6mos Janice Limon, Arlette Tolliver - 02/03/2011 2:59 PM PDT CARDIOLOGY NEW PATIENT VISIT Moe Sanchez is a 50 y.o. male who is referred by Darion Holden for the evaluation of n ear syncopal symptoms PCP: Darion Holden DO Subjective: is a 50 y/m with hx. Of HTN, symptomatic bradycardia S/p Medtronic d ual chamber permanent pacemaker implantation on 06/14/09 in [place], Chronic smoker, mild DIDIER, bip olar disorder with anxiety who presents for second opinion regarding his syncopal episodes. Pt. started noticing dizzy spells and episodes of syncope about 3 years ago , pacemaker was put at the recommendation of Tour Guide Dr. Singletary from [place]. [place]. Pt. states lala bhatti was put>1 year ago but the symptoms pf light headedness, dizziness and fainting h ave been persistent. In , he had a syncopal episode when driving and resulted in an [facility]. Typically has multiple episodes of lightheadedness and dizziness in a day. Symptoms init ially were only when getting up suddenly from lying or sitting position but now symptoms frederic n at rest, start gradually with a feeling of uneasiness. States he has passed out twice sinc e pacemaker placement. Both came of gradually and each time he passed out for 5 min. 1st epi sode was witnessed and was not associated any involuntary body movements , he was out for 5 min, was associated with profound diaphoresis, he woke up alert and oriented. 2nd episode wa s at home and was not witnessed. Currently he on disability for 5-6 cervical-spine surgeries, last surgery last months, nest surgery in 1 week, under [place] with uneventful hua-operative period. States he has lost ~50 lbs in the past 2 years due to nausea ( probably due to chronic narc otics) Mr. Sanchez denies chest pain, dyspnea, orthopnea, PND, edema, palpitations, pre syncope or syncope, TIA, CVA, or claudication. Cardiac Risks: Hypertension and Tobacco Exercise tolerance (Functional Class): Can walk several blocks but limited due to bilatera l foot pain, States symptom of dizziness do not changes with exertional Past Medical History Diagnosis Date DIDIER (obstructive sleep apnea) HTN Symptomatic bradycardia Ex-smoker Bipolar disorder PVC's (premature ventricular contractions) Past Surgical History Procedure Date Cervical spine surgery Appendectomy No family history on file. History Substance Use Topics Smoking status: Former Smoker -- 40 years Quit date: 02/03/2007 Smokeless tobacco: Never Used Comment: Smoked cigars occasionally(1 a year) Alcohol Use: No Eats marijuana 2-3 times/week. Current outpatient prescriptions:ASCORBIC ACID (VITAMIN C ORAL), Take 1 Tab by mouth once d aily., Disp: , Rfl: Aspirin 81 mg Oral Tablet, Take 81 mg by mouth once daily., Disp: , Rfl: HYDROmorphone (DILAUDID) 4 mg Oral Tablet, Take by mouth. 1-2 every 4-6 hours, Disp: , Rfl : lisinopril (ZESTRIL) 20 mg Oral Tablet, Take 10 mg by mouth once daily. 1/2 tablet at bedti me , Disp: , Rfl: metoprolol tartrate 50 mg Oral Tablet, Take 50 mg by mouth two times daily., Disp: , Rfl: MULTI-VITAMIN ORAL, Take 1 Tab by mouth once daily., Disp: , Rfl: oxyCODONE CR (OXYCONTIN) 20 mg Oral Tablet Extended Release 12 hr, Take by mouth. 2 tablet s two to three times daily , Disp: , Rfl: oxyCODONE, immediate release, 30 mg Oral Tablet, Take by mouth. 1-2 tablets every 4-6 hour s, Disp: , Rfl: SALMON OIL/OMEGA-3 FATTY ACIDS (SALMON OIL-1000 ORAL), Take 2 Caps by mouth once daily., Di sp: , Rfl: Allergies: Biaxin, Penicillins and Vicodin Review of systems: Please see HPI and PMHx. Comprehensive review of systems otherwise neg ative by interview and detailed patient questionnaire. Vitals: BP 126/79 | Pulse 70 | Temp (Src) 37.2 C (98.9 F) (Oral) | Ht 1.93 m (6' 4") | Wt 106.006 kg (233 lb 11.2 oz) | SpO2 97% | BMI 28.45 kg/(m^2) PE: General: healthy, alert and cooperative HEENT: Normal Neck: Neck supple. No adenopathy. Thyroid symmetric & normal size. no jugular venous disten tion. Cardiac: PMI normal. No lifts, heaves, or thrills. RRR. Heart sounds normal. No murmurs, c licks or gallops. Abdominal aorta pulsation normal. Carotid, Femoral and pedal pulses 4+ bi laterally. No arterial bruits. No peripheral edema. Respiratory: Percussion normal. Good diaphragmatic excursion. Lungs clear to auscultation b ilaterally. 12 Lead ECG Interpretation:Paced rythm at 70 /min ECHO : Normal study in 2009 per outside records CATH: ? Normal study per patient ? 2006/2007 . Labs: No results found for this basename: WBC,HB,HCT,PLT,MCV,RDW,NA,K,CL,BICARB,BUN,CR,GLU ,CA,CHOL,LDL,HDL,TRI,TSH,BNP Impression: Interesting case of a 50 Y/M with near syncopal and syncopal episodes associate d with light headedness and dizziness which have persisted despite permanent pacemaker place ment last year. Based on the history alone they appear to be vasovagally mediated , although exact etiology unclear this time. Devise interrogated by Yajaira Vaz , please see her no marcos for details. Pt. Had a Holter monitor post pacemaker placement , will attempt to get a c opy of those records. Plan: Check electrolytes , CBC, TSH and Cortisol levels Repeat TTE to r/O structural heart disease May ]benefit form tilt table testing but NA at [facility] May need to involve endocrine and EP services Follow-up visit in 4 weeks. The patient will continue to follow-up with Dr Darion Holden DO. Patient advised to present t o the Emergency Room or activate the EMS for concerning chest pain, shortness of breath, pal pitations or racing heart that does not stop, fainting, or symptoms of a stroke such as loss of vision, slurring of speech, weakness of an arm or leg. Thank you for this referral. Follow-up visit will be scheduled in 1 months The patient was interviewed, examined and the plan was formulated with my attending physici an Dr. Omero DREW MD CARDIOLOGY - GENERAL [address] Mailcode: [facility], 9th Floor [facility] [address] documented in this en counter Plan of Treatment + +------+--------+ + + | Name | Type | Priori | Associated Diagnoses | Order Schedule | | | | ty | | | + +------+--------+ + + | TRANSTHORACIC | ECG | Routin | Chest pain | Ordered: 02/03/2011 | | ECHOCARDIOGRAM, | | e | Bradycardia | | | ADULT | | | | | + +------+--------+ + + documented as of this encounter Procedures + +--------+ + + + | Procedure Name | Priori | Date/Time | Associated Diagnosis | Comments | | | ty | | | | + +--------+ + + + | OUTSIDE CARDIOLOGY | | 02/20/2011 | | Results for this | | | | 12:00 AM | | procedure are in the | | | | PDT | | results section. | + +--------+ + + + | EJECTION FRACTION | Routin | 02/03/2011 | | Results for this | | | e | 3:33 PM | | procedure are in the | | | | PDT | | results section. | + +--------+ + + + | EJECTION FRACTION | Routin | 02/03/2011 | | Results for this | | | e | 3:33 PM | | procedure are in the | | | | PDT | | results section. | + +--------+ + + + | 12 LEAD ECG | Routin | 02/03/2011 | Chest pain | Results for this | | | e | 2:01 PM | | procedure are in the | | | | PDT | | results section. | + +--------+ + + + documented in this encounter Results OUTSIDE CARDIOLOGY (02/20/2011 12:00 AM PDT) + + + | Narrative | Performed At | + + + | | | + + + + + | Procedure Note | + + | 02/20/2011 12:00 AM PDT | | | + + TSH (02/03/2011 4:08 PM PDT) + +-------+ + + + | Component | Value | Ref Range | Performed | Pathologist | | | | | At | Signature | + +-------+ + + + | TSH | 2.10 | 0.34 - 5.60 | [facility] | | | | | uIU/ml | REGIONAL | | | | | | LABORATORY | | + +-------+ + + + + + | Specimen | + + | Blood - Blood | + + + + + | Narrative | Performed At | + + + | [facility]) | [facility] | | [facility] [address] [facility] | REGIONAL | | [place] [address] | LABORATORY | + + + + + + + + | Performing | Address | City/State/Zipcode | Phone Number | | Organization | | | | + + + + + | [facility] | [address] | [place] [address] | | | LABORATORY | | | | + + + + + CORTISOL, SERUM (02/03/2011 4:08 PM PDT) + + + + + + | Component | Value | Ref Range | Performed | Pathologist | | | | | At | Signature | + + + + + + | CORTISOL, | 7.3 | ug/dl | [facility] | | | TOTAL SERUM | | | REGIONAL | | | | | | LABORATORY | | + + + + + + | TIME | NA | Hrs:mins | [facility] | | | | | | REGIONAL | | | | | | LABORATORY | | + + + + + + | SITE | None Given | | [facility] | | | | | | REGIONAL | | | | | | LABORATORY | | + + + + + + + + | Specimen | + + | Blood - Blood | + + + + + | Narrative | Performed At | + + + | Cortisol Reference Ranges | [facility] | | AM Reference Range: 7.0 - 23.0 ug/dl | REGIONAL | | PM Reference Range: Less than 10.0 ug/dl | LABORATORY | | [facility]) | | | [facility] [place] [address] | | | [place] [address] | | + + + + + + + + | Performing | Address | City/State/Zipcode | Phone Number | | Organization | | | | + + + + + | [facility] | [address] | [place] [address] | | | LABORATORY | | | | + + + + + COMPLETE METABOLIC SET (NA,K,CL,CO2,BUN,CREAT,GLUC,CA,AST,ALT,BILI TOTAL,ALK PHOS,ALB,PROT TOTAL) (02/03/2011 4:08 PM PDT) + + + + + + | Component | Value | Ref Range | Performed | Pathologist | | | | | At | Signature | + + + + + + | GLUCOSE, | 79 | 60 - 99 mg/dL | [facility] | | | PLASMA | | | DEPARTMENT | | | (LAB) | | | OF | | | | | | PATHOLOGY | | + + + + + + | BUN, PLASMA | 13 | 6 - 20 mg/dL | [facility] | | | (LAB) | | | DEPARTMENT | | | | | | OF | | | | | | PATHOLOGY | | + + + + + + | CREATININE | 0.73 | 0.70 - 1.30 | [facility] | | | PLASMA | | mg/dL | DEPARTMENT | | | (LAB) | | | OF | | | | | | PATHOLOGY | | + + + + + + | TOTAL | 7.1 | 6.1 - 7.9 g/dL | [facility] | | | PROTEIN, | | | DEPARTMENT | | | PLASMA | | | OF | | | (LAB) | | | PATHOLOGY | | + + + + + + | ALBUMIN, | 4.5 | 3.5 - 4.7 g/dL | [facility] | | | PLASMA | | | DEPARTMENT | | | (LAB) | | | OF | | | | | | PATHOLOGY | | + + + + + + | CALCIUM, | 9.3 | 8.6 - 10.2 | [facility] | | | PLASMA | | mg/dL | DEPARTMENT | | | (LAB) | | | OF | | | | | | PATHOLOGY | | + + + + + + | BILIRUBIN | 0.7 | 0.3 - 1.2 mg/dL | [facility] | | | TOTAL | | | DEPARTMENT | | | | | | OF | | | | | | PATHOLOGY | | + + + + + + | ALK PHOS | 47 (L) | 53 - 128 U/L | [facility] | | | | | | DEPARTMENT | | | | | | OF | | | | | | PATHOLOGY | | + + + + + + | AST(SGOT) | 26 | 15 - 41 U/L | [facility] | | | | | | DEPARTMENT | | | | | | OF | | | | | | PATHOLOGY | | + + + + + + | SODIUM, | 138 | 134 - 143 | [facility] | | | PLASMA | | mmol/L | DEPARTMENT | | | (LAB) | | | OF | | | | | | PATHOLOGY | | + + + + + + | POTASSIUM, | 4.0 | 3.4 - 5.0 | [facility] | | | PLASMA | | mmol/L | DEPARTMENT | | | (LAB) | | | OF | | | | | | PATHOLOGY | | + + + + + + | CHLORIDE, | 105 | 97 - 108 mmol/L | [facility] | | | PLASMA | | | DEPARTMENT | | | (LAB) | | | OF | | | | | | PATHOLOGY | | + + + + + + | TOTAL CO2, | 26Comment: New Total | 22 - 29 mmol/L | [facility] | | | PLASMA | CO2 reference range | | DEPARTMENT | | | (LAB) | effective 10/14/10. | | OF | | | | | | PATHOLOGY | | + + + + + + | ALT (SGPT) | 21 | 13 - 48 U/L | [facility] | | | | | | DEPARTMENT | | | | | | OF | | | | | | PATHOLOGY | | + + + + + + | EGFR | > 60 | >60 mL/min | [facility] | | | - | | | DEPARTMENT | | | [place] | | | OF | | | | | | PATHOLOGY | | + + + + + + | EGFR NON | > 60Comment: GFR is | >60 mL/min | [facility] | | | -PABLITO | estimated using the MDRD | | DEPARTMENT | | | RICAN | equation recommended by | | OF | | | | theNational Kidney | | PATHOLOGY | | | | Disease Education | | | | | | Program. Estimated GFR | | | | | | Interpretive | | | | | | Information: <60 | | | | | | mL/min/1.73 sq m | | | | | | Chronic Kidney Disease | | | | | | <15 mL/min/1.73 sq m | | | | | | Kidney Failure | | | | | | Estimated GFR greater | | | | | | than 60mL/min/1.73 is of | | | | | | limited clinical Value. | | | | | | The MDRD equation is | | | | | | not valid in the | | | | | | following situations: - | | | | | | Patients under 18 years | | | | | | of age - Severe | | | | | | malnutrition or obesity | | | | | | - Vegetarian diet - | | | | | | Rapidly changing kidney | | | | | | function | | | | + + + + + + | ANION GAP | 7 | 4 - 11 mmol/L | [facility] | | | | | | DEPARTMENT | | | | | | OF | | | | | | PATHOLOGY | | + + + + + + | ANION | 5 | 4 - 11 mmol/L | [facility] | | | GAP(ALB | | | DEPARTMENT | | | CORRECTED) | | | OF | | | | | | PATHOLOGY | | + + + + + + + + | Specimen | + + | Blood - Blood | + + + + + + + | Performing | Address | City/State/Zipcode | Phone Number | | Organization | | | | + + + + + | [facility] DEPARTMENT | [address] | [place] [address] | | | PATHOLOGY | [address] | | | + + + + + EJECTION FRACTION (02/03/2011 3:33 PM PDT) + +-------+ + + + | Component | Value | Ref Range | Performed | Pathologist | | | | | At | Signature | + +-------+ + + + | BIPLANE, EF | 59.1 | | [facility] DEPT | | | | | | OF | | | | | | CARDIOLOGY | | + +-------+ + + + + + | Specimen | + + | | + + + + + + + | Performing | Address | City/State/Zipcode | Phone Number | | Organization | | | | + + + + + | [facility] OF | [address] | [place], [place] | | | CARDIOLOGY | [address] | [address] | | + + + + + EJECTION FRACTION (02/03/2011 3:33 PM PDT) + +-------+ + + + | Component | Value | Ref Range | Performed | Pathologist | | | | | At | Signature | + +-------+ + + + | BIPLANE, EF | 59.1 | | [facility] | | | | | | OF | | | | | | CARDIOLOGY | | + +-------+ + + + + + | Specimen | + + | | + + + + + + + | Performing | Address | City/State/Zipcode | Phone Number | | Organization | | | | + + + + + | [facility] | [address] | [place], [place] | | | CARDIOLOGY | [address] | [address] | | + + + + + 12 LEAD ECG (02/03/2011 2:01 PM PDT) + + + + + + | Component | Value | Ref Range | Performed | Pathologist | | | | | At | Signature | + + + + + + | VENTRICULAR | 70 | BPM | [facility] | | | RATE | | | OF | | | | | | CARDIOLOGY | | + + + + + + | ATRIAL RATE | 70 | BPM | [facility] | | | | | | OF | | | | | | CARDIOLOGY | | + + + + + + | P-R | 130 | ms | [facility] | | | INTERVAL | | | OF | | | | | | CARDIOLOGY | | + + + + + + | QRS | 106 | ms | [facility] | | | DURATION | | | OF | | | | | | CARDIOLOGY | | + + + + + + | QT | 408 | ms | [facility] | | | | | | OF | | | | | | CARDIOLOGY | | + + + + + + | QTC | 440 | ms | [facility] | | | | | | OF | | | | | | CARDIOLOGY | | + + + + + + | P AXIS | 7 | degrees | [facility] | | | | | | OF | | | | | | CARDIOLOGY | | + + + + + + | R AXIS | 43 | degrees | [facility] | | | | | | OF | | | | | | CARDIOLOGY | | + + + + + + | T AXIS | -1 | degrees | [facility] | | | | | | OF | | | | | | CARDIOLOGY | | + + + + + + | EKG | Electronic atrial | | [facility] | | | DIAGNOSIS | pacemakerConfirmed by | | OF | | | | CALOS CRUZ ([id number]) on | | CARDIOLOGY | | | | 02/03/2011 10:09:36 PM | | | | + + + + + + + + | Specimen | + + | | + + + + + | Narrative | Performed At | + + + | Please click | [facility] OF | | on view image for the detailed interpretation from [employer] results. | CARDIOLOGY | + + + + + + + + | Performing | Address | City/State/Zipcode | Phone Number | | Organization | | | | + + + + + | [facility] | [address] | [place], [place] | | | CARDIOLOGY | [address] | [address] | | + + + + + documented in this encounter Visit Diagnoses + + | Diagnosis | + + | Chest pain - Primary Chest pain, unspecified | + + | Bradycardia Other specified cardiac dysrhythmias | + + | Pacemaker Cardiac pacemaker in situ | + + documented in this encounter
--- OUTSIDE RECORDS SUMMARY | ~2019-10-04 | XMS | Encounter Summary ---
Demographics + + + | Address | [address] | | | [place] [address] | + + + | Home Phone | | + + + | Preferred Language | Unknown | + + + | Marital Status | | + + + | Mandaen Affiliation | 1013 | + + + | Race | Unknown | + + + | Ethnic Group | Unknown | + + + Author + + + | Author | [facility] | | | and [place] | + + + | Organization | [facility] | | [...] Team Providers + +------+ + | Care Mortgage Loan Originator Name | Role | Phone | + [...] Description | +--------+--------+ + + + | 06/22/ | Refill | [facility] [place] | Geri Angel, | Medication Refill | | 2016 | | CARDIOLOGY [address] | ELECTRICAL INSTALLATION INSPECTOR [address] | | | | | [address] [place], | [place], [place] | | | | | [place] [address] | [address] | | | | | [phone] | | | +--------+--------+ + + + [...] [address] | | | | | | [address] [place], | | | | | | [place] [address] | | | | | | [phone] | | | | | | | | +--------+ + + + + | 11/20/ | Implant | Cardiology | Daljit Singletary, | Remote Device | | 2018 | Monitor | | [address] | Interrogation | | | | | [place], | (Primary Dx); | | | | | [place] [address] | Presence of | | | | | [phone] | permanent cardiac | | | | [...]
--- OUTSIDE RECORDS SUMMARY | ~2019-10-04 | XMS | Encounter Summary ---
Demographics + + + | Address | [address] | | | [place] [address] | + + + | Home Phone | | + + + | Preferred Language | Unknown | + + + | Marital Status | | + + + | Alevism Affiliation | 1013 | + + + | Race | Unknown | + + + | Ethnic Group | Unknown | + + + Author + + + | Author | [facility] | | | and [place] | + + + | Organization | [facility] | | [...] Team Providers + +------+ + | Care Lobby Porter Name | Role | Phone | + +------+ + PCP | Unavailable | + +------+ + Encounter Details +--------+ + + + + | Date | Type | Department | Care Team | Description | +--------+ + + + + | 06/14/ | [facility] | [facility] [facility] | Kennethshaistatesha Shaistakenneth, | | | 2008 - | Encounter | MED CTR MP INTRA OP | [address] | | | | | [address] | [place], | | | 06/15/ | | [place] | [place] [address] | | | 2008 | | [address] | [phone] | | | | | [phone] | | | +--------+ + + + [...] [address] | | | | | | [place], | | | | | | [place] [address] | | | | | | [phone] | | | | | | | | +--------+ + + + + | 11/20/ | Implant | Cardiology | Daljit Singletary, | Remote Device | | 2019 | Monitor | | [address] | Interrogation | | | | | [place], | (Primary Dx); | | | | | [place] [address] | Presence of | | | | | [phone] | permanent cardiac | | | | [...]
--- OUTSIDE RECORDS SUMMARY | ~2019-10-04 | XMS | Encounter Summary ---
Demographics + + + | Address | [address] | | | [place] [address] | + + + | Home Phone | | + + + | Preferred Language | Unknown | + + + | Marital Status | | + + + | Yazidi Affiliation | 1013 | + + + | Race | Unknown | + + + | Ethnic Group | Unknown | + + + Author + + + | Author | [facility] | | | and [place] | + + + | Organization | [facility] | | [...] Team Providers + +------+ + | Care Biomedical Engineering Technologist Name | Role | Phone | + +------+ + | Kirk French MD | PCP | | + +------+ + Reason for Visit +--------+ + | Reason | Comments | +--------+ + | Other | Cardiac Clearance | +--------+ + Encounter Details +--------+ + + + + | Date | Type | Department | Care Team | Description | +--------+ + + + + | 06/06/ | Telephone | [facility] [place] | [place], | Other (Cardiac | | 2019 | | CARDIOLOGY [address] | Janeen, MANUAL LATHE OPERATOR [address] | Clearance) | | | | [place], | [place], | | | | | [place] [address] | [place] [address] | | | | | [phone] | [phone] | | | | | | | [...] [place], | | | | | | [place] [address] | | | | | | [phone] | | | | | | | | +--------+ + + + + | 11/20/ | Implant | Cardiology | Daljit Singletary, | Remote Device | | 2018 | Monitor | | [address] [place] | Interrogation | | | | | [place], | (Primary Dx); | | | | | [place] [address] | Presence of | | | | | [phone] | permanent cardiac | | | | [...]
--- OUTSIDE RECORDS SUMMARY | ~2019-10-04 | XMS | Encounter Summary ---
Demographics + + + | Address | [address] | | | [place] [address] | + + + | Home Phone [...] Team Providers + +------+ + | Care Broadcast Operations Manager Name | Role | Phone [...] Description | +--------+--------+ + + + | 11/22/ | Refill | [facility] [place] [facility] | Michael Amanda, | Medication Refill | | 2013 | | [facility]IC[facility] [place] | DO [address] | | | | | [address] | [place] | | | | | [place] | [address] | | | | | [address] | | | | | | [phone] | | | +--------+--------+ + + + [...] W | | | | | | [place], | | | | | | [place] [address] | | | | | | [phone] | | | | | | | | +--------+ + + + + | 11/20/ | Implant | Cardiology | Daljit Singeltary, | Remote Device | | 2018 | Monitor | | [address] [facility] | Interrogation | | | | | [place], | (Primary Dx); | | | | | [place] [address] | Presence of | | | | | [phone] | permanent cardiac | | | | [...]
--- OUTSIDE RECORDS SUMMARY | ~2019-10-04 | XMS | Encounter Summary ---
Demographics + + + | Address | [address] | | | [place] [address] | + + + | Home Phone | | + + + | Preferred Language | Unknown | + + + | Marital Status | | + + + | Mosque Affiliation | 1013 | + + + | Race | Unknown | + + + | Ethnic Group | Unknown | + + + Author + + + | Author | [facility] | | | and [place] | + + + | Organization | [facility] | | | [...] Team Providers + +------+ + | Care Railroad Conductor Name | Role | Phone | + +------+ + PCP | Unavailable | + +------+ + Encounter Details +--------+ + + + + | Date | Type | Department | Care Team | Description | +--------+ + + + + | 08/26/ | Hospital | [facility] | | | | 2009 | Encounter | MED CTR LABORATORY | | | | | | [address] [place] | | | | | | [place] | | | | | | [address] | | | | | | [phone] | | | +--------+ + + + [...] | | | | | | [place] [address] | | | | | | [phone] | | | | | | | | +--------+ + + + + | 11/20/ | Implant | Cardiology | Daljit Singletary, | Remote Device | | 2018 | Monitor | | [facility] | Interrogation | | | | | [place], | (Primary Dx); | | | | | [place] [address] | Presence of | | | | | [phone] | permanent cardiac | | | | [...]
--- OUTSIDE RECORDS SUMMARY | ~2019-10-04 | XMS | Encounter Summary ---
Demographics + + + | Address | [address] | | | [place] [address] | + + + | Home Phone | | + + + | Preferred Language | Unknown | + + + | Marital Status | | + + + | Jew Affiliation | 1013 | + + + | Race | Unknown | + + + | Ethnic Group | Unknown | + + + Author + + + | Author | [facility] | | | and [place] | + + + | Organization | [facility] | | | [...] Team Providers + +------+ + | Care Agricultural Economics Professor Name | Role | Phone | + +------+ + | Michael Amanda DO | PCP | | + +------+ + Reason for Visit +--------+ + | Reason | Comments | +--------+ + | Other | chest pain | +--------+ + Encounter Details +--------+ + + + + | Date | Type | Department | Care Team | Description | +--------+ + + + + | 01/26/ | Telephone | [facility] [place] | Daljit Singletary, | Other (chest pain) | | 2013 | | CARDIOLOGY [address] | MD [address] [place] | | | | | [place], | [place], | | | | | [place] [address] | [place] [address] | | | | | [phone] | [phone] | | | | | | | [...] W | | | | | | [place], | | | | | | [place] [address] | | | | | | [phone] | | | | | | | | +--------+ + + + + | 11/20/ | Implant | Cardiology | Daljit Singletary, | Remote Device | | 2018 | Monitor | | [address] [facility] | Interrogation | | | | | [place], | (Primary Dx); | | | | | [place] [address] | Presence of | | | | | [phone] | permanent cardiac | | | | [...]
--- OUTSIDE RECORDS SUMMARY | ~2019-10-04 | XMS | Encounter Summary ---
Demographics + + + | Address | [address] | | | [place] [address] | + + + | Home Phone [...] Team Providers + +------+ + | Care Snagger Name | Role | Phone | + +------+ + | Michael Amanda DO | PCP | | + +------+ + Reason for Visit +--------+ + | Reason | Comments | +--------+ + | Other | not feeling well | +--------+ + Encounter Details +--------+ + + + + | Date | Type | Department | Care Team | Description | +--------+ + + + + | 04/11/ | Telephone | [facility] [place] | [place], | Other (not feeling | | 2013 | | [place] [address] | [place] [address] | [place]) | | | | [place], | [place], | | | | | [place] [address] | [place] [address] | | | | | [phone] | [phone] | | | | | | | [...] W | | | | | | [place], | | | | | | [place] [address] | | | | | | [phone] | | | | | | | | +--------+ + + + + | 11/20/ | Implant | Cardiology | Daljit Singletary, | Remote Device | | 2018 | Monitor | | [address] [facility] | Interrogation | | | | | [place], | (Primary Dx); | | | | | [place] [address] | Presence of | | | | | [phone] | permanent cardiac | | | | [...]
--- OUTSIDE RECORDS SUMMARY | ~2019-10-04 | XMS | Encounter Summary ---
Demographics + + + | Address | [address] | | | [place] [address] | + + + | Home Phone [...] Team Providers + +------+ + | Care Sterile Supply Technician Name | Role | Phone | + +------+ + | Kirk French MD | PCP | | + +------+ + Encounter Details +--------+ + + + + | Date | Type | Department | Care Team | Description | +--------+ + + + + | 12/26/ | Episode | [facility] | Kaylynn Copeland | | | 2019 | Changes | GASTROENTEROLOGY | [place] | | | | | [address] | | | | | | [address] [place] | | | | | | [address] | | | | | | [phone] | | | +--------+ + + + [...] W | | | | | | [place], | | | | | | [place] [address] | | | | | | [phone] | | | | | | | | +--------+ + + + + | 11/20/ | Implant | Cardiology | Daljit Singletary, | Remote Device | | 2018 | Monitor | | [address] [facility] | Interrogation | | | | | [place], | (Primary Dx); | | | | | [place] [address] | Presence of | | | | | [phone] | permanent cardiac | | | | [...]
--- OUTSIDE RECORDS SUMMARY | ~2019-10-04 | XMS | Encounter Summary ---
Demographics + + + | Address | [address] | | | [place] [address] | + + + | Home Phone | | + + + | Preferred Language | Unknown | + + + | Marital Status | | + + + | Muslim Affiliation | 1013 | + + + | Race | Unknown | + + + | Ethnic Group | Unknown | + + + Author + + + | Author | [facility] | | | and [place] | + + + | Organization | [facility] | | [...] Team Providers + +------+ + | Care Infrastructure Manager Name | Role | Phone | + +------+ + | Michael Amanda DO | PCP | | + +------+ + Reason for Visit + + + | Reason | Comments | + + + | ED Follow-up | s/p LYUDMILA greer | + + + Encounter Details +--------+ + + + + | Date | Type | Department | Care Team | Description | +--------+ + + + + | 06/27/ | Telephone | [facility] | Michael Amanda, | ED Follow-up (s/p | | 2014 | | MEDICINE [place] | DO [address] | [facility]) | | | | [address] | [place] | | | | | [place] | [address] | | | | | [address] | | | | | | [phone] | | | +--------+ + + + [...] W | | | | | | [place], | | | | | | [place] [address] | | | | | | [phone] | | | | | | | | +--------+ + + + + | 11/20/ | Implant | Cardiology | Daljit Singletary, | Remote Device | | 2018 | Monitor | | [place] [address] [place] [address] | Interrogation | | | | | [place], | (Primary Dx); | | | | | [place] [address] | Presence of | | | | | [phone] | permanent cardiac | | | | [...]
--- OUTSIDE RECORDS SUMMARY | ~2019-10-04 | XMS | Encounter Summary ---
Demographics + + + | Address | [address] | | | [place] [address] | + + + | Home Phone | | + + + | Preferred Language | Unknown | + + + | Marital Status | | + + + | Sabianism Affiliation | 1013 | + + + | Race | Unknown | + + + | Ethnic Group | Unknown | + + + Author + + + | Author | [facility] | | | and [place] | + + + | Organization | [facility] | | | [...] Providers + +------+ + | Care Insurance Law Specialist Name | Role | Phone | + +------+ + | Kirk French MD | PCP | | + +------+ + Encounter Details +--------+ + + + + | Date | Type | Department | Care Team | Description | +--------+ + + + + | 01/05/ | Orders Only | [facility] | Emmanuel Daniel MD | | | 2019 | | [facility] | [address], [place] | | | | | PATHOLOGY [address] | [address] [place], [place] | | | | | BLVD [place], [place] | [address] | | | | | [address] | | | | | | [phone] | | | +--------+ + + + [...] | | | | | | [place], | | | | | | [place] [address] | | | | | | [phone] | | | | | | | | +--------+ + + + + | 11/20/ | Implant | Cardiology | Daljit Singletary, | Remote Device | | 2018 | Monitor | | MD [place] | Interrogation | | | | | [place], | (Primary Dx); | | | | | [place] [address] | Presence of | | | | | [phone] | permanent cardiac | | | | [...] | | | (atherosclerotic heart disease of [place] coronary artery without | | | angina [...] chronic or | | | microscopic colitis. BES:[facility]:C3NR GROSS DESCRIPTION: A. The | | | specimen, labeled "[place], duodenal biopsy" is received in formalin | | | and consists of seven 0.1-0.5 cm lin fragments. Entirely submitted in | | | (A1). B. The specimen, labeled "[place], right colon" is received | | | in formalin and consists of six 0.2-0.3 cm lin fragments. Entirely | | | submitted in (B1). C. The specimen, labeled "[place], left colon" | | | is received in formalin and consists of six 0.2-0.3 cm lin-pink | | | fragments. Entirely submitted in (C1). am:AMB:portillo PERFORMING | | | LABORATORY: The technical component was performed by [facility] | | | [facility], [address] [place] [address] (Organizational Effectiveness Consultant: | | | Kailey Stafford MD; CLIA# [id number]). Professional interpretation was | | | performed by [facility], [facility], [address] | | | [place] [address] (Organizational Effectiveness Consultant: Ishaan | | | Anthony Dao; CLIA#: [id number]). Diagnostician: Ishaan Dao | | | Pathologist Electronically Signed 01/06/2019 | | + + + + +---------+ + + | Performing | Address | City/State/Zipcode | Phone Number | | Organization | | | | + +---------+ + + | EXTERNAL LAB | | | | + +---------+ + + documented in this encounter Visit Diagnoses Not on filedocumented in this encounter
--- OUTSIDE RECORDS SUMMARY | ~2019-10-04 | XMS | Encounter Summary ---
Demographics + + + | Address | [address] | | | [place] [address] | + + + | Home Phone [...] Team Providers + +------+ + | Care Rn Traveling Name | Role | Phone | + [...] 2016 | | CARDIOLOGY [address] | ROD FILLER [address] | | | | | [place], | [place], [place] | | | | | [place] [address] | [address] | | | | | [phone] | | | +--------+--------+ + + + [...] W | | | | | | [place], | | | | | | [place] [address] | | | | | | [phone] | | | | | | | | +--------+ + + + + | 11/20/ | Implant | Cardiology | Daljit Singletary, | Remote Device | | 2018 | Monitor | | [address] | Interrogation | | | | | [place], | (Primary Dx); | | | | | [place] [address] | Presence of | | | | | [phone] | permanent cardiac | | | | [...]
--- OUTSIDE RECORDS SUMMARY | ~2019-10-04 | XMS | Encounter Summary ---
Demographics + + + | Address | [address] | | | [place] [address] | + + + | Home Phone [...] Team Providers + +------+ + | Care Position Classification Specialist Name | Role | Phone | + +------+ + PCP | Unavailable | + +------+ + Encounter Details +--------+ + + + + | Date | Type | Department | Care Team | Description | +--------+ + + + + | 10/26/ | Hospital | [facility] | | | | 1994 | Encounter | MED CTR EMERGENCY | | | | | | CENTER [address] | | | | | | [place] | | | | | | [address] | | | | | | [phone] | | | +--------+ + + + [...] | | | | | | [place] [address] | | | | | | [phone] | | | | | | | | +--------+ + + + + | 11/20/ | Implant | Cardiology | Daljit Singletary, | Remote Device | | 2018 | Monitor | | [address] [facility] | Interrogation | | | | | [place], | (Primary Dx); | | | | | [place] [address] | Presence of | | | | | [phone] | permanent cardiac | | | | [...]
--- OUTSIDE RECORDS SUMMARY | ~2019-10-04 | XMS | Encounter Summary ---
Demographics + + + | Address | [address] | | | [place] [address] | + + + | Home Phone [...] Team Providers + +------+ + | Care Kidney Trimmer Name | Role | Phone | + +------+ + | Michael Amanda DO | PCP | | + +------+ + Reason for Visit + + + | Reason | Comments | + + + | Follow-up | One month with [facility] 12/25/13 | + + + | Chest Pain | | + + + Encounter Details +--------+---------+ + + + | Date | Type | Department | Care Team | Description | +--------+---------+ + + + | 01/29/ | Office | [facility] | Sil[place], | Other chest pain | | 2013 | Visit | CARDIOLOGY [address] | [place] [address] | (Primary Dx); Chest | | | | [place], | [place], | pain; Coronary | | | | [place] [address] | [place] [address] | artery disease; | | | | [phone] | [phone] | Hyperlipidemia; | | | | | [...] last week to the emergency room at [facility] with a baljit [facility] pain episode. [...] needed for Chest pain. 25 tablet 12 [place]-3 Fatty Acids (SALMON OIL-1000 PO) CAPS, one [...] was seen on the emergency room at [place] on 01/26/2014, he was ruled out A [...] pain. He is in class II of [place] 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 There are no [...] ventricular arrhythmia performed by Dr. Gambino at [facility] on 01/30/2013. Patient had spontaneous PVCs [...] to go back in 3 days to [place] for an attempt of ablation under general [...] symptoms. He is in class II of [place] Heart 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 There are no [...] made to ensure accuracy; however, inadvertent computerized blueprint reproducer errors may be pre sent. Electronically signed [...] | | | | | | [place] [address] | | | | | | [phone] | | | | | | | | +--------+ + + + + | 11/20/ | Implant | Cardiology | Daljit Singletary, | Remote Device | | 2018 | Monitor | | [address] [facility] | Interrogation | | | | | [place], | (Primary Dx); | | | | | [place] [address] | Presence of | | | | | [phone] | permanent cardiac | | | | [...] of unspecified type of vessel, | | [place] or graft | + + | Hyperlipidemia Other and unspecified hyperlipidemia | + + | Symptomatic PVCs Other premature beats | + + | Hypertension Unspecified essential hypertension | + + documented in this encounter
--- OUTSIDE RECORDS SUMMARY | ~2019-10-04 | XMS | Encounter Summary ---
Demographics + + + | Address | [address] | | | [place] [address] | + + + | Home Phone [...] Providers + +------+ + | Care Brine Maker Name | Role | Phone | [...] | 02/15/ | Office | [facility] [place] | Silvia, | Symptomatic PVCs | | 2012 | Visit | CARDIOLOGY [address] | [place] [address] | (Primary Dx); | | | | [place], | [place], | Bradycardia; HTN | | | | [place] [address] | [place] [address] | (hypertension) | | | | [phone] | [phone] | | | | | | | [...] at which time patient was going to [place] for access specialist co nsult and PVC ablation. Since [...] tablet Take 1,000 mg by mouth Daily. [place]-3 Fatty Acids (SALMON OIL-1000 PO) CAPS, one [...] ventricular arrhythmia performed by Dr. Gambino at [facility] on 01/30/2013. Patient had spontaneous PVCs from [...] to go back in 3 days to [place] for an attempt of ablation under general [...] He is in a class II of [place] Heart Ass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 There is no [...] been encouraged to keep his appointment with access specialist this coming y to attempt ablation therapy. 4. Follow up appointment in 4-6 weeks. I, PARISA Russell, saw this patient under the direct supervision of Daljit Singletary MD Portions of this report were transcribed using voice recognition software. Every effort wa s made to ensure accuracy; however, inadvertent computerized business services associate errors may be pre sent. documented in this encounter Plan of Treatment +--------+ + + + + | Date | Type | Specialty | Care Team | Description | +--------+ + + + + | 11/09/ | Office | Cardiology | [place]via, | | | 2019 | Visit | | [place] [address] | | | | | | [place], | | | | | | [place] [address] | | | | | | [phone] | | | | | | | | +--------+ + + + + | 11/20/ | Implant | Cardiology | Daljit Singletary, | Remote Device | | 2019 | Monitor | | [address] [facility] | Interrogation | | | | | [place], | (Primary Dx); | | | | | [place] [address] | Presence of | | | | | [phone] | permanent cardiac | | | | [...]
--- OUTSIDE RECORDS SUMMARY | ~2019-10-04 | XMS | Encounter Summary ---
Demographics + + + | Address | [address] | | | [place] [address] | + + + | Home Phone | | + + + | Preferred Language | Unknown | + + + | Marital Status | | + + + | Christianity Affiliation | 1013 | + + + | Race | Unknown | + + + | Ethnic Group | Unknown | + + + Author + + + | Author | [facility] | | | and [place] | + + + | Organization | [facility] [...] Team Providers + +------+ + | Care Library Associate Name | Role | Phone | + +------+ + | Kirk French MD | PCP | | + +------+ + Reason for Visit + + + | Reason | Comments | + + + | Follow-up | | + + + | Coronary Artery | | | Disease | | + + + Encounter Details +--------+---------+ + + + | Date | Type | Department | Care Team | Description | +--------+---------+ + + + | 08/29/ | Office | [facility] | [place], | Essential | | 2015 | Visit | CARDIOLOGY [address] | [address] | hypertension | | | | [place], | [place], | (Primary Dx); | | | | [place] [address] | [place] [address] | Coronary artery | | | | [phone] | [phone] | disease involving | | | | | | cocopah coronary | | | | | | artery without | | | | | | angina pectoris; DVT | | | | | | (deep venous | | | | | | thrombosis), | | | | | | bilateral (HCC) | +--------+---------+ + + + Social History [...] + + + | Blood Pressure | 102/78 | 08/29/2015 12:39 PM | | | | | PDT | | + + + + + | Pulse | 74 | 08/29/2015 12:39 PM | Regular | | | | PDT | | + + + + + | Temperature | - | - | | + + + + + | Respiratory Rate | 16 | 08/29/2015 12:39 PM | | | | | PDT | | + + + + + | Oxygen Saturation | - | - | | + + + + + | Inhaled Oxygen | - | - | | | Concentration | | | | + + + + + | Weight | 113.9 kg (251 lb) | 08/29/2015 12:39 PM | | | | | PDT | | + + + + + | Height | 190.5 cm (6' 3") | 08/29/2015 12:39 PM | | | | | PDT | | + + + + + | Body Mass Index | 31.37 | 08/29/2015 12:39 PM | | | | | PDT [...] as of this encounter Progress Notes Janeen Ramirez ARNP - 08/29/2015 12:29 PM PDTFormatting of this note might be different f rom the original. PATIENT NAME: Moe Sanchez : 1960: AGE: 55 y.o. PRIMARY CARE: Kirk French MD OUTPATIENT FOLLOW UP VISIT Date of Service: 08/29/2015 HISTORY OF PRESENT ILLNESS: Moe Sanchez is a 55 y.o. male with a history of non-critical coronary artery d isease, hypertension, symptomatic bradycardia status post Medtronic dual-chamber permanent p acemaker implantation 06/14/09, frequent premature ventricular contractions status post ablat ion spring 2012, and bipolar disorder with anxiety. He is being seen today for follow up co ronary artery disease, hypertension and recent suspected history of DVT. He was last seen 06/26/2015 at which time he was to follow-up in 6 months or sooner if any concerns. Since that time, patient went on a trip to [place] and started complaining of leg swelling. He went to 2 different hospitals to have his leg evaluated with a supposedly ini tial diagnosis of DVT and he was started on Lovenox leg swelling had improved somewhat but sandra rodarte continues to have mild swelling. He was advised to come back to the [place] to furt her his evaluation. He was seen in the emergency room at [facility] on 08/23/20 15 and the ER physician reviewed his chart saying that there were 2 ultrasounds from [facility] both of them are clear of DVT but reveal some venous insufficiency. Today, arian ent tells me that he started having swelling in both his feet within a week when he got to [facility]. He had extensive traveling. He went to one hospital and then to other hospital and w as placed on stockings and advised to go [place] the [place]. He was told that there were blood c lots in the left calf but they didn't include that in any of the reports from ultrasounds. However, he was given a whole week of Lovenox since he was going to be traveling back to the [place]. Today, patient states that his leg swelling has improved but they both stil l swelling and he has a lot of pain in his feet. He has had no chest pain and no chest pres sure and no shortness of breath at rest or on exertion. He denies any other cardiac symptom s. He continues using the stockings on a regular basis but he is not using Lovenox anymore. MEDICAL, SURGICAL, AND PERSONAL HISTORY Past Medical, Surgical, Family, and Social History are reviewed in EPIC. CURRENT PROBLEMS Patient Active Problem List Diagnosis Hyperlipidemia BIPOLAR DISORDER UNSPECIFIED Mixed anxiety depressive disorder Tobacco user Essential hypertension NONDEPENDENT OPIOID ABUSE IN REMISSION FIBROMYALGIA LUMBAGO [...] Preventative health care Coronary artery disease involving cocopah coronary artery without angina pectoris Cannabis abuse, daily use Ascending thoracic aortic aneurysm CURRENT MEDICATIONS Current Outpatient Prescriptions Medication Sig Dispense Refill 5-Hydroxytryptophan (5-HTP) 100 MG CAPS Take by mouth 2 (two) times daily. aluminum & magnesium hydroxide-simethicone (MAALOX REGULAR STRENGTH) 200-200-20 mg/5 mL suspension Take 30 mLs by mouth every 4 hours as needed for Indigestion. 1 Bottle 0 amLODIPine (NORVASC) 10 MG tablet Take 1 tablet by mouth Daily. 90 tablet 3 Ascorbic Acid (VITAMIN C) 1000 MG tablet Take 1,000 mg by mouth Daily. aspirin 81 MG tablet Take 81 mg by mouth Daily. cholecalciferoL (VITAMIN D-3) 1,000 units CAPS capsule Take by mouth. ciprofloxacin (CIPRO) 500 mg tablet Take 500 mg by mouth 2 times daily. PATIENT STATED NO LONGER TAKING THIS MEDICATION. STATED ON 08/29/2015. clonazePAM (KLONOPIN) 0.5 mg tablet Take 0.5 mg by mouth Twice daily as needed for Anx iety. cloNIDine (CATAPRES) 0.2 MG tablet Take 1 tablet by mouth 3 times daily. 270 tablet 3 diphenhydrAMINE (BENADRYL) 25 MG capsule Take 25 mg by mouth as needed. doxycycline (MONODOX) 100 mg capsule Take 100 mg by mouth 2 times daily. dronabinol (MARINOL) 10 MG capsule Take 10 mg by mouth 2 times daily (before meals). furosemide (LASIX) 40 mg tablet Take 1 tablet by mouth Daily. 7 tablet 0 gabapentin (NEURONTIN) 600 MG tablet Take 1 tablet by mouth 3 times daily. 0 EMMA VELÁSQUEZ 550 MG CAPS Take by mouth. MELATONIN TABS, at bedtime as needed Methylsulfonylmethane (MSM) 1000 MG TABS Take by mouth 2 (two) times daily. metoprolol succinate (TOPROL-XL) 200 mg ER tablet Take 1 tablet by mouth every evening. 90 tablet 3 [facility] Natural Products (OSTEO BI-FLEX/5-LOXIN ADVANCED PO) Take by mouth. Takes 2 table ts in the morning and 2 tablets at night Multiple Vitamins-Minerals (CENTRUM SILVER PO) Take 1 tablet by mouth Daily. Nattokinase 100 MG CAPS PATIENT STATED NO LONGER TAKING THIS MEDICATION. STATED ON 08/29. Take by mouth 2 (two) times daily. nitroglycerin (NITROSTAT) 0.4 mg SL tablet Take one tablet under tongue as needed for c hest pain, may repeat every 5 minutes up to 3 doses. If no relief after 3rd dose, call 911 100 tablet 3 [place]-3 Fatty Acids (SALMON OIL-1000 PO) CAPS, one capsule by mouth daily twice daily ONE TOUCH DELICA LANCETS [facility] Check glucose as needed for hypoglycemia 100 each 3 pantoprazole (PROTONIX) 40 mg tablet Take 1 tablet by mouth every morning (before break fast). 30 tablet 2 potassium chloride (K-DUR) 20 mEq ER tablet Take 1 tablet by mouth Daily for 7 days. (P atient taking differently: Take 20 mEq by mouth Daily. PATIENT STATED NO LONGER TAKING THIS MEDICATION. STATED ON 08/29/2015.) 7 tablet 0 pravastatin (PRAVACHOL) 40 MG tablet Take 1 tablet by mouth nightly. 90 tablet 3 promethazine (PHENERGAN) 25 mg tablet Take 25 mg by mouth every 8 hours as needed. rOPINIrole (REQUIP) 1 mg tablet Take 1 tablet by mouth nightly. 0 silodosin (RAPAFLO) 8 mg CAPS Take 1 capsule by mouth Daily. to reduce urinary frequenc y Lot #[id number], exp 07/2016 (Patient taking differently: Take 8 mg by mouth Daily. PATIENT STA YOSELIN NO LONGER TAKING THIS MEDICATION. STATED ON 08/29/2015. to reduce urinary frequency Lot #[id number], exp 07/2016) 21 capsule 0 Specialty Vitamins Products (PROSTATE) TABS Take 2 tablets by mouth Daily. PATIENT STAT ED NO LONGER TAKING THIS MEDICATION. STATED ON 08/29/2015. UNABLE TO FIND Take 1 tablet by mouth Daily. KEYBIOTICS UNABLE TO FIND Take 1 tablet by [...] for shortness of breath. Cardiovascular: Positive for palpitations and leg swelling. Negative for chest pain. Neurological: Positive for dizziness and headaches. Negative for weakness. Lightheaded = No OBJECTIVE: PHYSICAL EXAM BP 102/78 mmHg | Pulse 74 | Resp 16 | Ht 1.905 m (6' 3") | Wt 113.853 kg (251 lb) | BMI 31. 37 kg/m2 Physical Exam Constitutional: He is oriented [...] There is no tenderness. Musculoskeletal: He exhibits edema (mild bilateral lower extremity edema). Neurological: He is alert and oriented to person, place, and time. Coordination normal. Skin: Skin is warm and dry. Abrasion (there is a small round open area on the left anterior lower aspect of the tibia the patient said that has not healed over the last couple weeks) noted. There is erythema (patient has bilateral lower extremity erythema and they are both f eet warm to the touch). No cyanosis. Nails show no clubbing. Psychiatric: He has a normal mood and affect. His mood appears not anxious. He does not exh ibit a depressed mood. ECG: I personally reviewed ECG tracing from 08/29/2015 is atrial paced rhythm with prolonge d AV conduction with a heart rate of 74 bpm with no acute changes. LAB RESULTS: LIPID Lab Results Component Value Date TRIG 88 05/27/2012 HDL 42 05/27/2012 LDL 173* 05/27/2012 CHOLHDL 3.1 08/08/2013 LDLEX 108 07/26/2014 HDLEX 44.3 07/26/2014 TRIGEX 56 07/26/2014 CHOLEX 163 07/26/2014 CHEMISTRY Lab Results Component Value Date GLU 109 03/19/2015 NA 135* 03/19/2015 K 3.5 03/19/2015 CL 106 03/19/2015 CO2 25 03/19/2015 CALCIUM 8.9 03/19/2015 ALKPHOS 56 03/18/2015 AST 29 03/18/2015 ASTEX 32 07/26/2014 ALT 25 03/18/2015 ALTEX 29 07/26/2014 BILITOT 0.9 03/18/2015 CREA 0.90 03/19/2015 BUN 15 03/19/2015 EGFR >60 04/03/2013 EGFREX 91 07/26/2014 CREEX 0.87 07/26/2014 HEMATOLOGY Lab Results Component Value Date WBC 5.9 03/19/2015 WBCEX 6.2 07/26/2014 HGB 16.3 03/19/2015 HGBEX 16.8 07/26/2014 HCT 46.5 03/19/2015 HCTEX 48.7 07/26/2014 PLT 136* 03/19/2015 PLTEX 163 07/26/2014 I reviewed records from [facility] for emergency department visit o n 08/23/2015. ASSESSMENT: 1. Possible bilateral DVT: A. Patient comes with history of extensive traveling to [place] when approximately a week after he arrived he developed lower extremity edema with severe pain and redness. He went t o 2 different hospitals that did 2 different ultrasounds that told that he had a blood clot. They gave him a week of Lovenox and advised them to come back to the [place]. Abdoul wynn brought reports to the emergency room at [facility] and according to the not es they worsen not any evidence of blood clots or DVT. Both report said that there was veno us insufficiency but none of them reported a clot. B. Bilateral lower extremity ultrasound done on 08/29/2015 showed no evidence of deep veno us thrombosis in either lower extremity. C. Today, patient's lower extremity swelling has improved but is still present. He is not presently anticoagulated. There is still redness and pain on his feet. Bilateral lower ex tremity ultrasound was done and it had ruled out DVT. Patient has been recommended continue using compression socks and doing some physical activity and walking to improve circulation . He should contact us if anything worsens. 2. Non-critical coronary artery disease: A. Normal exercise [...] be ruled out. D. LHC 12/25/13, shows non critical [...] valve regurgitation, mild aortic valve insufficiency. F. Today, he denies recurrent chest pain. 3. [...] ventricular arrhythmia performed by Dr. Gambino at [facility] on 01/30/2013. Patient had spontaneous [...] to go back in 3 days to [place] for an attempt of ablation under general [...] has no further complaints of episodes of worsening palpitations, lighthe adedness or dizziness. He is in class I-II of 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 T here are no signs or symptoms of overt congestive heart failure. There is no fluid retentio n on physical examination. 4. Sinoatrial node dysfunction with symptomatic bradycardia: A. The echocardiogram on 05/25/09 revealed a normal left ventricular size and sys tolic function, LVEF 65 to 70%. B. Medtronic DDD permanent pacemaker implantation on 06/14/[address] Sydni masters. C. Last device interrogation shows a normal and stable function. 5. Hypertension. A. Today blood pressure is well controlled. 6. Lightheadedness and dizziness/ presyncope: A. Episode of presyncope 05/28/10 evaluated in the emergency department, thought to have vasovagal symptoms. 7. History of cigarette smoking. 8. Bipolar disease with anxiety/depression 9. Ascending thoracic aorta aneurysm: A. CTA of [...] showed 4.2 cm, so to minimize radiation expos ure, would plan on checking CTA if echocardiogram shows change, and plan on rechecking echoc ardiogram next spring. PLAN: 1. Obtain STAT bilateral lower extremity ultrasound to rule out deep vein thrombosis 2. Patient has been recommended continue using compression socks and doing some physical ac tivity and walking to improve circulation. He should contact us if anything worsens. 3. Follow-up appointment as planned Portions of this chart may have been created with INXPO voice recognition software. Occasi onal wrong-word or [...] W | | | | | | [place], | | | | | | [place] [address] | | | | | | [phone] | | | | | | | | +--------+ + + + + | 11/20/ | Implant | Cardiology | Sydni Singletary, | Remote Device | | 2019 | Monitor | | [address] [place] | Interrogation | | | | | [place], | (Primary Dx); | | | | | [place] [address] | Presence of | | | | | [phone] | permanent cardiac | | | | [...] | ECG 12 LEAD | Routin | 08/29/2015 | Coronary artery | Results for this | | | e | 12:38 PM | disease involving | procedure are in the | | | | PDT | cocopah coronary | results section. | | | | | artery without | | | | | | angina pectoris | | + +--------+ + + + documented in this encounter Results VAS Lower Extremity Venous Bilateral (08/29/2015 2:45 PM PDT) + + | Specimen | + + | | + + + + + | Narrative | Performed At | + + + | EXAM: VAS LOWER EXTREMITY VENOUS BILATERAL dated 08/29/2015 1:45 PM. | [facility] | | HISTORY: DVT. COMPARISON: None. TECHNIQUE: Compression | [facility] | | sonography was performed from the groin through the popliteal fossa | [facility] | | in both lower extremities.. Grayscale and spectral Doppler analysis | - IMAGING | | is performed. FINDINGS: There is phasic respiratory flow in all | | | areas sampled. There is response to Valsalva in the common femoral | | | vein. There is response to calf augmentation in all areas sampled. | | | There is normal and complete compressibility in all areas sampled. | | | There are no visible thrombi. IMPRESSION - No evidence for | | | deep venous thrombosis in either lower extremity. The preliminary | | | findings were conveyed to the ordering provider, by the billing control clerk, | | | immediately following the exam. Dictated and Signed by: Emmanuel Bay | | MD Edwige Electronically signed: 08/29/2015 3:25 PM | | + + + + + | Procedure Note | + + | Kevin, Rad Results In - 08/29/2015 3:28 PM PDT EXAM: VAS LOWER EXTREMITY VENOUS | | BILATERAL dated 08/29/2015 1:45 PM.HISTORY: DVT.COMPARISON: None.TECHNIQUE: Compression | | sonography was performed from the groin through thepopliteal fossa in both lower | | extremities.. Grayscale and spectral Doppleranalysis is performed.FINDINGS: There is | | phasic respiratory flow in all areas sampled. There isresponse to Valsalva in the | | common femoral vein. There is response to calfaugmentation in all areas sampled. There | | is normal and complete compressibilityin all areas sampled. There are no visible | | thrombi.IMPRESSION -No evidence for deep venous thrombosis in either lower extremity.The | | preliminary findings were conveyed to the ordering provider, by thesonographer, | | immediately following the exam.Dictated and Signed by: Emmanuel Gibbons MD | | Electronically signed: 08/29/2015 3:25 PM | |response to Valsalva in the common femoral vein. There is response to calf | |augmentation in all areas sampled. There is normal and complete compressibility | |in all areas sampled. There are no visible thrombi. | | | |IMPRESSION - | | | |No evidence for deep venous thrombosis in either lower extremity. | | | |The preliminary findings were conveyed to the ordering provider, by the | |billing control clerk, immediately following the exam. | | | | | |Dictated and Signed by: Emmanuel Gibbons MD | | Electronically signed: 08/29/2015 3:25 PM | + + + + + + + | Performing | Address | City/State[facility] | Phone Number | | Organization | | | | + + + + + | [address] | [address] | [place] | [phone] | | [facility] | | [address] | | | - IMAGING | | | | + + + + + ECG 12 lead (08/29/2015 12:38 PM PDT) [...] MD | | | | | | ([id number]) on 08/29/2015 | | | | | [...] + + | Coronary artery disease involving cocopah coronary artery without angina pectoris | + + | DVT (deep venous thrombosis), bilateral | + + documented in this encounter
--- OUTSIDE RECORDS SUMMARY | ~2019-10-04 | XMS | Encounter Summary ---
Demographics + + + | Address | [address] | | | [place] [address] | + + + | Home Phone [...] Team Providers + +------+ + | Care Public Health Dietitian Name | Role | Phone | + [...] | Telephone | [facility] [place] | [place], | LABS | | 2019 | | CARDIOLOGY [address] | Janeen PATIENT CARE REPRESENTATIVE [address] | | | | | [place], | [place], | | | | | [place] [address] | [place] [address] | | | | | [phone] | [phone] | | | | | | | [...] W | | | | | | [place], | | | | | | [place] [address] | | | | | | [phone] | | | | | | | | +--------+ + + + + | 11/20/ | Implant | Cardiology | Daljit Singletary, | Remote Device | | 2018 | Monitor | | [address] [place] | Interrogation | | | | | [place], | (Primary Dx); | | | | | [place] [address] | Presence of | | | | | [phone] | permanent cardiac | | | | [...]
--- OUTSIDE RECORDS SUMMARY | ~2019-10-04 | XMS | Encounter Summary ---
Demographics + + + | Address | [id number] [place] [address] | | | [place] [address] | + + + | Home Phone | | + + + | Preferred Language | Unknown | + + + | Marital Status | | + + + | Hoahaoism Affiliation | Unknown | + + + | Race | White | + + + | Ethnic Group | Not or | + + + Author + + + | Author | [facility] | + + + | Organization | [facility] | + + + | Address | Unknown | + + + | Phone | Unavailable | + + + Support + + + + + | Name | Relationship | Address | Phone | + + + + + | Rachel Valencia | ELIEZER | [place] | | | | | [address] | | + + + + + Care Team Providers + +------+ + | Care Disability Insurance Hearing Officer Name | Role | Phone | [...] | | | | | [facility] | [place], [place] | for Health | | | | | C | [address] | and Healing, | | | | | ECHOCARDIOGR | Phone: | [address] | | | | | AM, ADULT | [phone] | [place], [place] | | | | | | Fax: | [address] | | | | | | [phone] | Phone: | | | | | | | [phone] | +--------+--------+ + + + + Encounter Details +--------+ + + + + | Date | Type | Department | Care Team | Description | +--------+ + + + + | 02/03/ | Hospital | Cardiac | | | | 2010 | Encounter | Non-Invasive Testing | | | | | | at [facility] [address] | | | | | | [address] Mailcode: | | | | | | [facility] | | | | | | Health and Healing, | | | | | | [address] | | | | | | [place], [place] | | | | | | [address] | | | | | | [phone] | | | +--------+ + + + [...]
--- OUTSIDE RECORDS SUMMARY | ~2019-10-04 | XMS | Encounter Summary ---
Demographics + + + | Address | [address] | | | [place] [address] | + + + | Home Phone [...] Team Providers + +------+ + | Care Merchandise Support Associate Name | Role | Phone | + +------+ + | Michael Amanda DO | PCP | | + +------+ + Reason for Visit + + + | Reason | Comments | + + + | Shoulder Pain | | + + + | Neck Pain | | + + + Encounter Details +--------+ + + + + | Date | Type | Department | Care Team | Description | +--------+ + + + + | 06/18/ | Emergency | [facility] | Dom Graham, | Cervical pain (neck) | | 2013 | | [facility] | MD [address] | (Primary Dx); | | | | CENTER [address] | [place] | Paresthesia and pain | | | | [place], [place] | [address] | of both upper | | | | [address] | | extremities | | | | [phone] | | | +--------+ + + + [...] + + + | Blood Pressure | 111/77 | 06/18/2014 2:09 PM | | | | | PDT | | + + + + + | Pulse | 85 | 06/18/2014 2:09 PM | | | | | PDT | | + + + + + | Temperature | 36.4 C (97.5 F) | 06/18/2014 2:09 PM | | | | | PDT | | + + + + + | Respiratory Rate | 16 | 06/18/2014 2:09 PM | | | | | PDT | | + + + + + | Oxygen Saturation | 95% | 06/18/2014 2:09 PM | | | | | PDT | | + + + + + | Inhaled Oxygen | - | - | | | Concentration | | | | + + + + + | Weight | 111.1 kg (245 lb) | 06/18/2014 2:09 PM | | | | | PDT | | + + + + + | Height | 193 cm (6' 4") | 06/18/2014 2:09 PM | | | | | PDT | | + + + + + | Body Mass Index | 29.82 | 06/18/2014 2:09 PM | | | | | PDT | | + + + + + documented in this encounter Discharge Instructions Instructions Dom Graham MD - 06/18/2014Take medication as prescribed. Return if worsening or new concerning symptoms. AttachmentsThe following attachments cannot be sent through Care Everywhere.PARAESTHESIAS ( [place]NA[place])NECK SPRAIN/STRAIN ([place])documented in this encounter Medications at Time of [...] + + + +---------+ + + | Ocate-3 Fatty | CAPS, one capsule by | [...] + + + +---------+ + + | methylPREDNISolone | Follow package | 21 | 0 | 06/18/20 | | | (MEDROL DOSEPAK) 4 | directions. | tablet | | 14 | 4 | | mg tablet | | | | | [...] [place], | | | | | | [place] [address] | | | | | | [phone] | | | | | | | | +--------+ + + + + | 11/20/ | Implant | Cardiology | Daljit Singletary, | Remote Device | | 2018 | Monitor | | MD Chiquis Oro | Interrogation | | | | | [facility] [place], | (Primary Dx); | | | | | [place] [address] | Presence of | | | | | [phone] | permanent cardiac | | | | [...] + | CT CERVICAL SPINE WO | STAT | 06/18/2014 | | Results for this | | CONTRAST | | 2:43 PM | | procedure are in the | | | | PDT | | results section. | + +--------+ + + + documented in this encounter Results CT Cervical Spine wo Contrast (06/18/2014 2:43 PM PDT) + + | Specimen | + + | | + + + + + | Narrative | Performed At | + + + | CT CERVICAL SPINE WITHOUT CONTRAST: 06/18/2014 2:23 PM CLINICAL | MISCELANIOUS | | HISTORY: SHOULDER PAIN NECK PAIN COMPARISON:CT cervical spine | LAB | | 04/22/2012 TECHNIQUE: Axial images are obtained from skull base to | | | lung apices. These are reviewed in axial, sagittal and coronal | | | reformations. FINDINGS:Stable C5-C6 fusion with ankylosis across | | | the disc interspace. Also fusion changes at C6-C7 with no visible | | | disc interspace and a high density bony graft in the interspace. | | | Partial corpectomies of C6 and C7. Anterior compression plate is | | | buckled anteriorly, similar to prior. In the interval since prior | | | exam, bilateral posterior pedicle screw and paris fixation has been | | | placed from C6 to T1. Focal accentuation of the normal cervical | | | lordosis at C6-C7 with no focal loss of alignment. This alignment is | | | stable when compared to prior. Other vertebral body heights are | | | normally maintained. No fracture. Aside from the surgical levels, | | | little degenerative change. No bony central canal stenosis or | | | foraminal narrowing. No adjacent soft tissue abnormality. | | | IMPRESSION - 1. Stable C5-C6 fusion. 2. C6-C7 fusion with | | | buckling of the anterior compression plate and focal increased | | | lordosis. In the interval since prior 2012 exam, posterior pedicle | | | screw and paris fixation has been placed from C6 to T1. Otherwise no | | | change from prior. No bony central canal or foraminal encroachment. | | | Dictated and Signed by: Francesco Solis MD Electronically | | | signed: 06/18/2014 3:14 PM | | + + + + + | Procedure Note | + + | Kevin, Rad Results In - 06/18/2014 3:[address] CERVICAL SPINE WITHOUT CONTRAST: | | 06/18/2014 2:23 PMCLINICAL HISTORY: SHOULDER PAINNECK PAINCOMPARISON:CT cervical spine | | 04/22/2012TECHNIQUE: Axial images are obtained from skull base to lung apices. These | | arereviewed in axial, sagittal and coronal reformations.FINDINGS:Stable C5-C6 fusion | | with ankylosis across the disc interspace. Alsofusion changes at C6-C7 with no visible | | disc interspace and a high density bonygraft in the interspace. Partial corpectomies of | | C6 and C7. Anterior compressionplate is buckled anteriorly, similar to prior. In the | | interval since prior exam,bilateral posterior pedicle screw and paris fixation has been | | placed from C6 toT1. Focal accentuation of the normal cervical lordosis at C6-C7 with no | | focalloss of alignment. This alignment is stable when compared to prior. Othervertebral | | body heights are normally maintained. No fracture.Aside from the surgical levels, | | little degenerative change. No bony centralcanal stenosis or foraminal narrowing. No | | adjacent soft tissue abnormality.IMPRESSION - 1. Stable C5-C6 fusion.2. C6-C7 fusion | | with buckling of the anterior compression plate and focalincreased lordosis. In the | | interval since prior 2011 exam, posterior pediclescrew and paris fixation has been placed | | from C6 to T1. Otherwise no change fromprior. No bony central canal or foraminal | | encroachment.Dictated and Signed by: Francesco Solis MD Electronically signed: 06/18/2014 | | 3:14 PM | | | |Aside from the surgical levels, little degenerative change. No bony central | |canal stenosis or foraminal narrowing. No adjacent soft tissue abnormality. | | | |IMPRESSION - | |1. Stable C5-C6 fusion. | | | |2. C6-C7 fusion with buckling of the anterior compression plate and focal | |increased lordosis. In the interval since prior 2011 exam, posterior pedicle | |screw and paris fixation has been placed from C6 to T1. Otherwise no change from | |prior. No bony central canal or foraminal encroachment. | | | | | |Dictated and Signed by: Francesco Solis MD | | Electronically signed: 06/18/2014 3:14 PM | + + + +---------+ + + | Performing | Address | City/State/Zipcode | Phone Number | | Organization | | | | + +---------+ + + | M[facility]OUS LAB | | | [phone] | + +---------+ + + | MISCELANIOUS LAB | | | [phone] | + +---------+ + + documented in this encounter Visit Diagnoses + + | Diagnosis | + + | Cervical pain (neck) - Primary Cervicalgia | + + | Paresthesia and pain of both upper extremities Disturbance of skin sensation | + + documented in this encounter
--- OUTSIDE RECORDS SUMMARY | ~2019-10-04 | XMS | Encounter Summary ---
Demographics + + + | Address | [address] [place] [address] | | | [place] [address] | + + + | Home Phone [...] + + + | Author | [facility] | + + + | Organization | [facility] | + + + | Address | Unknown | + + + | Phone | Unavailable | + + + Support + + + + + | Name | Relationship | Address | Phone | + + + + + | Rachel Valencia | ELIEZER | [place] | | | | | [address] | | + + + + + Care Team Providers + +------+ + | Care Director Of Billing Name | Role | Phone | + +------+ + | Darion Holden DO | PCP | | + +------+ + Reason for Visit + + + | Reason | Comments | + + + | New patient | | | consultation | | + + + Intake Referral (Routine) +--------+--------+ + + + + | Status | Reason | Specialty | Diagnoses / | Referred By | Referred To | | | | | Procedures | Contact | Contact | +--------+--------+ + + + + | Closed | | Gastroenterol | Diagnoses | María | Aurelia Faculty | | | | ogy | Full | MD Emmanuel | [facility] [address] | | | | | incontinence | [facility] | [address] | | | | | of feces | PHYSICIAN | Mailcode: | | | | | Diarrhea, | [facility] | [facility] for | | | | | unspecified | [address] | Health and | | | | | | [address] | Healing, | | | | | | [place] | [facility] | | | | | | [place], [place] | [place], [place] | | | | | | [address] | [address] | | | | | | Phone: | Phone: | | | | | | [phone] | [phone] | | | | | | Fax: | Fax: | | | | | | [phone] | [phone] | +--------+--------+ + + + + Encounter Details +--------+---------+ + + + | Date | Type | Department | Care Team | Description | +--------+---------+ + + + | 09/28/ | Office | [facility] | Bridgette Rios, | | | 2019 | Visit | Center at [facility] [address] | [address] | | | | | [address] | [place], [place] | | | | | Mailcode: Center | [address] | | | | | [facility] and | [phone] | | | | | [facility] | | | | | | [place], [place] | | | | | | [address] | | | | | | [phone] | | | +--------+---------+ + + + [...] in this encounter Patient Instructions Patient Instructions Bridgette Rios MD - 09/28/2019 3:40 PM PST1. I will send some lab orders to [facility] 2. 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 Use these recipes below for hydration 4. Call me in 3 weeks to check in Updated Oral Rehydration Recipes (ORS) 1. Grape or Cranberry Juice ORS Recipe cup grape or cranberry juice 3 cups water teaspoon salt 2. Apple Juice ORS Recipe 1 cup apple juice 3 cups water teaspoon salt 3. Sugar and Salt water (flavored with Crystal Light) (NEW) 4 cups water teaspoon salt 6 teaspoons sugar Optional: Crystal light to taste 4. Gatorade ORS Recipe 2 cups Gatorade (regular version) 2 cups water teaspooon salt 5. Gatorade R2 (NEW) 4 cups Gatroade R@ (or one 32 ounce bottle) teaspoon salt 6. All Sport Base 1 cups All Sport 3 cups Water teaspoon salt 7. Chicken Broth (NEW) 4 cups water 1 dry chicken broth cube teaspoon salt 2 tablespoons sugar OR 2 cups liquid chicken broth 2 cups water 2 tablespoons sugar 8. Tomato Juice (NEW) 2 cups tomato juice 1 cups water documented in this encounter Plan of Treatment Not on filedocumented as of this encounter Visit Diagnoses Not on filedocumented in this encounter
--- OUTSIDE RECORDS SUMMARY | ~2019-10-04 | XMS | Encounter Summary ---
Demographics + + + | Address | [address] | | | [place] [address] | + + + | Home Phone [...] Team Providers + +------+ + | Care Train Driver Name | Role | Phone | [...] + | 11/02/ | Telephone | [facility] | Daljit Singletary, | Other | | 2015 | | CARDIOLOGY [address] | MD [address] [place] | | | | | [place], | [place], | | | | | [place] [address] | [place] [address] | | | | | [phone] | [phone] | | | | | | | [...] | | | | | | [place], | | | | | | [place] [address] | | | | | | [phone] | | | | | | | | +--------+ + + + + | 11/20/ | Implant | Cardiology | Daljit Singletary, | Remote Device | | 2018 | Monitor | | MD Chiquis Oro | Interrogation | | | | | [place], | (Primary Dx); | | | | | [place] [address] | Presence of | | | | | [phone] | permanent cardiac | | | | [...]
--- OUTSIDE RECORDS SUMMARY | ~2019-10-04 | XMS | Encounter Summary ---
Demographics + + + | Address | [address] | | | [place] [address] | + + + | Home Phone [...] Team Providers + +------+ + | Care Scheduler Conveyor Name | Role | Phone | + +------+ + | Michael Amanda DO | PCP | | + +------+ + Reason for Visit + + + | Reason | Comments | + + + | Referral | | + + + Encounter Details +--------+ + + + + | Date | Type | Department | Care Team | Description | +--------+ + + + + | 10/26/ | Telephone | [facility] [place] | Silvia, | Referral | | 2013 | | CARDIOLOGY [address] | Janeen COVER CUTTER MACHINE [address] | | | | | [place], | [place], | | | | | [place] [address] | [place] [address] | | | | | [phone] | [phone] | | | | | | | [...] | | | | | [place], | | | | | | [place] [address] | | | | | | [phone] | | | | | | | | +--------+ + + + + | 11/20/ | Implant | Cardiology | Daljit Singletary, | Remote Device | | 2018 | Monitor | | MD Chiquis Oro | Interrogation | | | | | [place], | (Primary Dx); | | | | | [place] [address] | Presence of | | | | | [phone] | permanent cardiac | | | | [...]
--- OUTSIDE RECORDS SUMMARY | ~2019-10-04 | XMS | Encounter Summary ---
Demographics + + + | Address | [address] | | | [place] [address] | + + + | Home Phone [...] Team Providers + +------+ + | Care Acetylene Operator Name | Role | Phone | + +------+ + | Kirk French MD | PCP | | + +------+ + Encounter Details +--------+ + + + + | Date | Type | Department | Care Team | Description | +--------+ + + + + | 10/29/ | Emergency | [facility] | | Left leg pain; Neck | | 2017 | | [facility] | | pain, chronic; | | | | EM[facility]Y [facility]ENTER | | Closed head injury, | | | | [address] | | initial encounter; | | | | [place], [place] | | Elevated blood | | | | [address] | | pressure reading; | | | | [phone] | | Numbness and | | | | | | tingling | +--------+ + + + + Social [...] + + + | Blood Pressure | 138/75 | 10/29/2017 2:00 PM | | | | | PST | | + + + + + | Pulse | 71 | 10/29/2017 2:00 PM | | | | | PST | | + + + + + | Temperature | 36.8 C (98.2 F) | 10/29/2017 2:00 PM | | | | | PST | | + + + + + | Respiratory Rate | 18 | 10/29/2017 2:00 PM | | | | | PST | | + + + + + | Oxygen Saturation | - | - | | + + + + + | Inhaled Oxygen | - | - | | | Concentration | | | | + + + + + | Weight | 105 kg (231 lb 7.7 | 10/29/2017 2:00 PM | | | | oz) | PST | | + + + + + | Height | - | - | | + + + + + | Body Mass Index | 28.18 | 10/21/2017 4:30 PM | | | [...] + + + +---------+ + + | [place]-3 Fatty | CAPS, one capsule by | [...] | | | | | | [place] [address] | | | | | | [phone] | | | | | | | | +--------+ + + + + | 11/20/ | Implant | Cardiology | Gemini Shaistakenneth, | Remote Device | | 2019 | Monitor | | MD [address] [facility] | Interrogation | | | | | [place], | (Primary Dx); | | | | | [place] [address] | Presence of | | | | | [phone] | permanent cardiac | | | | | | pacemaker; | | | | | | Sinoatrial node | | | | | | dysfunction (HCC) | | | | | | with symptomatic | | | | | | bradycardia | +--------+ + + + + documented as of this encounter Visit Diagnoses + + | Diagnosis | + + | Left leg pain Pain in limb | + + | Neck pain, chronic Cervicalgia | + + | Closed head injury, initial encounter | + + | Elevated blood pressure reading Elevated blood pressure reading without diagnosis of | | hypertension | + + | Numbness and tingling Disturbance of skin sensation | + + documented in this encounter"
--- OUTSIDE RECORDS SUMMARY | ~2019-10-04 | XMS | Encounter Summary ---
Demographics + + + | Address | [address] | | | [place] [address] | + + + | Home Phone | | + + + | Preferred Language | Unknown | + + + | Marital Status | | + + + | Taoism Affiliation | 1013 | + + + | Race | Unknown | + + + | Ethnic Group | Unknown | + + + Author + + + | Author | [facility] | | | and [place] | + + + | Organization | [facility] | | | [...] Team Providers + +------+ + | Care Anode Adjuster Name | Role | Phone | [...] | 05/08/ | Telephone | [facility] [place] | Emmanuel Daniel MD | Other | | 2019 | | GASTROENTEROLOGY | [address], [place] | | | | | [address] [place] | [address] [place], [place] | | | | | [address] [place], [place] | [address] | | | | | [address] | | | | | | [phone] | | | +--------+ + + + [...] W | | | | | | [place], | | | | | | [place] [address] | | | | | | [phone] | | | | | | | | +--------+ + + + + | 11/20/ | Implant | Cardiology | Daljit Singletary, | Remote Device | | 2018 | Monitor | | MD [place] | Interrogation | | | | | [place], | (Primary Dx); | | | | | [place] [address] | Presence of | | | | | [phone] | permanent cardiac | | | | [...]
--- OUTSIDE RECORDS SUMMARY | ~2019-10-04 | XMS | Encounter Summary ---
Demographics + + + | Address | [address] | | | [place] [address] | + + + | Home Phone [...] Team Providers + +------+ + | Care Open Hearth Furnace Operator Helper Name | Role | Phone [...] | | CARDIOLOGY [address] | Janeen METAL WEATHER STRIPPER [address] | | | | | [place], | [place], | | | | | [place] [address] | [place] [address] | | | | | [phone] | [phone] | | | | | | | [...] W | | | | | | [place], | | | | | | [place] [address] | | | | | | [phone] | | | | | | | | +--------+ + + + + | 11/20/ | Implant | Cardiology | Daljit Singletary, | Remote Device | | 2018 | Monitor | | MD Chiquis Oro | Interrogation | | | | | [place], | (Primary Dx); | | | | | [place] [address] | Presence of | | | | | [phone] | permanent cardiac | | | | [...]
--- OUTSIDE RECORDS SUMMARY | ~2019-10-04 | XMS | Encounter Summary ---
Demographics + + + | Address | [address] | | | [place] [address] | + + + | Home Phone [...] Team Providers + +------+ + | Care Hosiery Mater Name | Role | Phone | + +------+ + | Kirk French MD | PCP | | + +------+ + Reason for Visit +--------+ + | Reason | Comments | +--------+ + | Other | symptoms | +--------+ + Encounter Details +--------+ + + + + | Date | Type | Department | Care Team | Description | +--------+ + + + + | 06/02/ | Telephone | [facility] | Daljit Singletary, | Other (symptoms) | | 2019 | | CARDIOLOGY [address] | MD [address] [place] | | | | | [place], | [place], | | | | | [place] [address] | [place] [address] | | | | | [phone] | [phone] | | | | | | | [...] W | | | | | | [place], | | | | | | [place] [address] | | | | | | [phone] | | | | | | | | +--------+ + + + + | 11/20/ | Implant | Cardiology | Daljit Singletary, | Remote Device | | 2019 | Monitor | | MD Chiquis Oro | Interrogation | | | | | [place], | (Primary Dx); | | | | | [place] [address] | Presence of | | | | | [phone] | permanent cardiac | | | | [...]
--- OUTSIDE RECORDS SUMMARY | ~2019-10-04 | XMS | Encounter Summary ---
Demographics + + + | Address | [address] | | | [place] [address] | + + + | Home Phone [...] Team Providers + +------+ + | Care Adult Education Manager Name | Role | Phone | + +------+ + | Kirk French MD | PCP | | + +------+ + Reason for Visit +--------+ + | Reason | Comments | +--------+ + | Other | EKG | +--------+ + Encounter Details +--------+ + + + + | Date | Type | Department | Care Team | Description | +--------+ + + + + | 07/01/ | Telephone | [facility] | Daljit Singletary, | Other (EKG) | | 2017 | | CARDIOLOGY [address] | MD [address] [place] | | | | | [place], | [place], | | | | | [place] [address] | [place] [address] | | | | | [phone] | [phone] | | | | | | | [...] [place], | | | | | | [place] [address] | | | | | | [phone] | | | | | | | | +--------+ + + + + | 11/20/ | Implant | Cardiology | Daljit Singletary, | Remote Device | | 2018 | Monitor | | [address] [facility] | Interrogation | | | | | [place], | (Primary Dx); | | | | | [place] [address] | Presence of | | | | | [phone] | permanent cardiac | | | | [...]
--- OUTSIDE RECORDS SUMMARY | ~2019-10-04 | XMS | Encounter Summary ---
Demographics + + + | Address | [address] | | | [place] [address] | + + + | Home Phone [...] + +------+ + | Care Document Control Coordinator Name | Role | Phone | + +------+ + | Kirk French MD | PCP | | + +------+ + Encounter Details +--------+ + + + + | Date | Type | Department | Care Team | Description | +--------+ + + + + | 12/24/ | [facility] | [facility] | Emmanuel Daniel MD | Pain of upper | | 2018 | Encounter | MED CTR MP INTRA OP | [address], [place] | abdomen (Primary | | | | [address] | [address] [place], [place] | Dx); Functional | | | | [place], [place] | [address] | diarrhea; Weight | | | | [address] | | loss | | | | [phone] | | | +--------+ + + + [...] + + + +---------+ + + | [place]-3 Fatty | CAPS, one capsule by [...] | | | | | | [place] [address] | | | | | | [phone] | | | | | | | | +--------+ + + + + | 11/20/ | Implant | Cardiology | Daljit Singletary, | Remote Device | | 2019 | Monitor | | [address] [facility] | Interrogation | | | | | [place] [place], | (Primary Dx); | | | | | [place] [address] | Presence of | | | | | [phone] | permanent cardiac | | | | [...] + + | Performed at: 01 - [facility] [place] [address], | REFERENCE LAB | | [place], [place] [id number] Home Health Rn: William Andrew MD, Phone: | ARSH CASTANON | | [phone] | | + + + + + + + + | Performing | Address | City/State/Zipcode | Phone Number | | Organization | | | | + + + + + | REFERENCE LAB | [address] | [place], [place] [address] | [phone] | | [facility] - [facility]INA | [address] | | | + + + + [...] er AG, Qual | | | [facility] | [...] + | [facility] | [address] | [place] | [phone] | | [facility] | | [address] | | | - LABORATORY | | [...] | | Aeromonas, Plesiomonas, | | [facility] | | | | E. coli O157 [...] [address] | [place] | [phone] | | [facility] | | [address] | | | - LABORATORY | | [...] | | | 1 | | | [facility] | | | | | | MEDICAL | | | | | | CENTER - | | | | | | LABORATORY | | + + + + + + | Shigatoxin | Negative | Negative | [facility] | | | 2 | | | [facility] | | [...] + | [facility] | [address] | [place] | [phone] | | [facility] | | [address] | | | - LABORATORY | | [...] + + | Performed at: 01 - [facility] [address], | REFERENCE LAB | | [place], [place] [address] Home Health Rn: William Andrew MD, Phone: | ARSH CASTANON | | [phone] | | + + + + + + + + | Performing | Address | City/State/Zipcode | Phone Number | | Organization | | | | + + + + + | REFERENCE LAB | [address] | [place] [address] | [phone] | | [facility] - [place] | [address] | | | + + + + [...] + | [facility] | [address] | [place] | [phone] | | [facility] | | [address] | | | - LABORATORY | | [...] ST. | [address] | [place], [place] | [phone] | | [facility] | | [address] | | | - LABORATORY | | [...] [address] | [place] | [phone] | | [facility] | | [address] | | | - LABORATORY | | [...] Difficile | Negative for toxigenic | | [facility] | | | GDH Antigen | [...] + | [facility] | [address] | [place] | [phone] | | [facility] | | [address] | | | - LABORATORY | | [...] | r pylori Ag | | | [facility] | | [...] [address] | [place] | [phone] | | [facility] | | [address] | | | - LABORATORY | | | | + + + + + EGD (12/24/2017 1:19 PM PST) + + | Specimen | + + | | + + + + -+ | Narrative | Performed At | + + -+ | | [facility] | | GastroenterologyPatient Name: Moe Venegas Date: 12/24/2017 | [facility] | | 1:19 PMMRN: [id number] #: [id number] of : | | | 9Admit Type: AmbulatoryAge: 57Room: [facility] 01Gender: MaleNote | | | Status: FinalizedAttending MD: Emmanuel Daniel , [facility]cedure: | | | Upper GI endoscopyIndications: Diarrhea, Weight | | | lossProviders: Emmanuel Daniel MD, Maria Isabel Morris RN, | | | Kim Hicks, Food Preparation Supervisor, Jarett | | | Sapna Barakat MD (Anesthesia [...] the anesthesiologist and | | | the computer hardware technician in the endoscopy suite. Mental Status [...] PMScope Out: 1:31:13 PM | | | [facility], [address] [facility] | | | [place] [address] | | | - Discharge patient to [...] |Scope Out: 1:31:13 PM | | | [facility], [address] [facility], [place], [place] | | | [address] | | + + -+ + +---------+ + + | Performing | Address | City/State/Zipcode | Phone Number | | Organization | | | | + +---------+ + + | [facility] | | | | + +---------+ + + COLONOSCOPY (12/24/2017 1:17 PM PST) + + | Specimen | + + | | + + + + -+ | Narrative | Performed At | + + -+ | | [facility] | | GastroenterologyPatient Name: Moe Venegas Date: 12/24/2017 | [facility] | | 1:17 PMMRN: [id number] #: [id number] of : | | | 9Admit Type: AmbulatoryAge: 57Room: [facility] 01Gender: MaleNote | | | Status: FinalizedAttending MD: Emmanuel Daniel , [facility]rocedure: | | | ColonoscopyIndications: Clinically significant diarrhea of | | | unexplained originProviders: Emmanuel Daniel MD, Maria Isabel | | | Arturo RN, Kim Hicks, Food Preparation Supervisor, | | | Jarett Barakat MD (Anesthesia Staff)Referring MD: | | | Kirk French (Referring MD)Medicines: Propofol | | | per AnesthesiaComplications: No [...] | | | the anesthesiologist and the computer hardware technician in the endoscopy suite. | | [...] Scope In: 1:32:55 PMScope Out: 1:48:57 PM [facility] | | | [facility], [address] [place] [address] | | | [phone] | | | - Await pathology results. [...] |Scope Out: 1:48:57 PM | | | [facility], [address] [place] [address] | | | [address] | | + + -+ + +---------+ [...] in | | | formalin labeled "Moe Sanchez A." and labeled "duodenal bx" on | | | the requisition are six pink-lin tissue fragments measuring from | | | 0.3-0.8 cm submitted, all in (A1). B. Received in formalin labeled | | | "Moe Sanchez C." and labeled "B, left colon bx" on [...] developed and its performance characteristics determined by [facility] | | | [employer]. It has not been cleared or approved by the U.S. Food | | | and Drug Administration. The FDA has determined that such clearance | | | or approval is not necessary. This test is used for clinical | | | purposes. It should not be regarded as investigational or for | | | research. [facility] is certified under the Clinical | | | Laboratory Improvement Amendments of 1988 (CLIA) as qualified to | | | perform high complexity clinical laboratory testing. This assay | | | has not been validated for specimens that have been decalcified. | | | PERFORMING LABORATORY: Tissue processing and slide preparation were | | | performed by [facility], [facility] ., [facility] [address] | | | [place] [address] (Machine Splitter: vEan Frausto M.D. CLIA#: | | | [id number]). Professional interpretation was performed by [facility] | | | [employer], [facility] [address] [email or web address] ., [address], [place] [address] | | | (Machine Splitter: Evan Frausto M.D.; CLIA#: [id number]). | | | Diagnostician: Rafael Bales MD [...] ONCE | | | PRN, Nausea, Starting Wed12/24/17 | | | at 1359, For 1 dose, | | | Recovery/Phase I | | + +---+ | | | + +---+ documented in this encounter
--- OUTSIDE RECORDS SUMMARY | ~2019-10-04 | XMS | Encounter Summary ---
Demographics + + + | Address | [address] | | | [place] [address] | + + + | Home Phone [...] Team Providers + +------+ + | Care Under Ground Miner Name | Role | Phone | + +------+ + | Michael Amanda DO | PCP | | + +------+ + Reason for Visit + + + | Reason | Comments | + + + | Follow-up | lab | + + + | Medication Refill | valtreix | + + + Encounter Details +--------+---------+ + + + | Date | Type | Department | Care Team | Description | +--------+---------+ + + + | 08/17/ | [facility] | [facility] | Michael Amanda, | Testosterone | | 2012 | Visit | [facility] [place] | DO [address] | deficiency (Primary | | | | [address] | [place] | Dx); Hypoglycemia; | | | | [place] | [address] | Herpes | | | | [address] | | | | | | [phone] | | | +--------+---------+ + + + [...] + + + | Blood Pressure | 112/92 | 08/17/2013 1:04 PM | | | | | PDT | | + + + + + | Pulse | 91 | 08/17/2013 1:04 PM | | | | | PDT | | + + + + + | Temperature | 35.3 C (95.6 F) | 08/17/2013 1:04 PM | | | | | PDT | | + + + + + | Respiratory Rate | 20 | 08/17/2013 1:04 PM | | | | | PDT | | + + + + + | Oxygen Saturation | 94% | 08/17/2013 1:04 PM | | | | | PDT | | + + + + + | Inhaled Oxygen | - | - | | | Concentration | | | | + + + + + | Weight | 119.7 kg (264 lb) | 08/17/2013 1:04 PM | | | | | PDT | | + + + + + | Height | 193 cm (6' 4") | 08/17/2013 1:04 PM | | | | | PDT | | + + + + + | Body Mass Index | 32.14 | 08/17/2013 1:04 PM | | | | | PDT | | + + + + + documented in this encounter Progress Notes Michael Amanda, - 08/17/2013 1:53 PM PDTFormatting of this note might be different fro m the original. Subjective: Moe Sanchez is a 53 y.o. male patient of Michael Amanda. Chief Complaint: Follow-up and Medication Refill HPI: Patient is a 53-year-old male. He comes in for followup on labs and needing prescription r efills. The patient was recently diagnosed with extremely low testosterone levels. He is o n multiple medications that could be lowering his testosterone levels. He seen at [facility]. He was prescribed OxyContin and Dilaudid. The Dilaudid is a recent medication change. He was on oxycodone for breakthrough in the past but it was changed to Dilaudid ye sterday. He is also taking prescription Marinol. His medications can s are strong. The lala carlos has very little energy. He is fatigued. He has low sexual drive. He has erectile dy sfunction. He was seen at [facility] yesterday and they prescribed him testostero ne cypionate injections. He's not sure when they wanted him to come back for labs. He has a followup appointment with [facility] in one month. Patient complains of history of hypoglycemia. He has a glucometer. He needs test strips a nd lancets. When he feels low he'll check his blood sugar and then E. To raise his blood peña gars. Patient has history of genital herpes. He is on suppressive treatment. He is out of Valtr ex. He's been taking this for years for suppression. If he stopped taking it he gets a terra ak out. No current breakouts. Allergies Allergen Reactions Alcohol-Fentanyl Clarithromycin Duloxetine Hydrocodone Penicillins Tramadol Hcl Medications: He has a current medication list which includes the following prescription(s): vitamin c, a spirin, diazepam, diltiazem, diphenhydramine, dronabinol, gabapentin, glucose blood vi test strips, hydromorphone, melatonin, metoprolol, omega-3 fatty acids, one touch delica lancets, pravastatin, promethazine, UNCODED MEDICATION, and valacyclovir. 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 neck pain; Depression; Hyperlipidemia; BIPOLAR DISORDER UNSPECIFIED; Anxiety depression; Tobacco user; Hypertension; Nondependent opioid abuse in remission; CAD; Fibromyalgia; Lumb ago; Chronic pain syndrome; Thrombocytopenia (08/26/2010); Fatigue (09/15/2010); Abdominal pa in, unspecified site (07/17/2011); Neck pain, chronic (09/24/2011); Syncope (10/09/2010); Obst ructive sleep apnea (08/26/2010); 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 Past Surgical History He has past surgical history that includes knee surgery (2003); laminectomy (1991); lumbar discectomy (1991); Appendectomy (2005); sinus surgery (1997); lumbar fusion (01/2011); pacema ker placement (06/14/09); neck fusion (08/10/2012); Ablation (04/03/13); and shoulder surgery (03/22/13). Social History: History Social History Marital Status: Spouse Name: [...] canCaffeine:NoneLiving situation: live s at home with Andreia in own home Review of Systems Pertinent items are noted in HPI. Musculoskeletal:negative except for arthralgias and back pain Behavioral/Psych: negative Endocrine: negative except for low testosterone, fatigue Constitutional: Positive for fatigue : Positive for rectal dysfunction and low sexual libido Objective: BP 112/92 | Pulse 91 | Temp 35.3 C (95.6 F) (Temporal) | Resp 20 | Ht 1.93 m (6' 4") | Wt 119.75 kg (264 lb) | BMI 32.14 kg/m2 | SpO2 94% General appearance: alert, appears stated age and cooperative Psychiatric: Mood and affect is normal Results for orders placed during the hospital encounter of 06/26/13 TSH Component Value Range TSH 1.23 0.34 - 5.60 uIU/mL SEDIMENTATION RATE Component Value Range ESR 4 0 - 20 mm/hr C-REACTIVE PROTEIN Component Value Range CRP 6.2 <8.0 mg/L Assessment and Plans: Moe was seen today for follow-up and medication refill. Diagnoses and associated orders for this visit: Testosterone deficiency Patient was recently started on testosterone injections by the typical pain Center. The pa in centers been managing all of his controlled substances. I discussed that many of his med ications including opiates and the Marinol can decrease testosterone levels. I am optimisti c that replacing his testosterone which is very low now improve his fatigue as well as his s exual function. Hypoglycemia - glucose blood test strips (ONE TOUCH ULTRA TEST) strip; Check glucose for symptomatic hypoglycemia prn - ONE TOUCH DELICA LANCETS MISC; Check glucose as needed for hypoglycemia Patient's testing supplies a refill for his hypoglycemia. He is encouraged to eat protein daily to prevent hypoglycemia. Emergency food on hand just in case. Herpes - valACYclovir (VALTREX) 500 mg tablet; Take 1 tablet daily Patient will continue with Valtrex for suppression. Refilled. Other Orders - HYDROmorphone (DILAUDID) 4 MG tablet; Take 4 mg by mouth every 4 hours as needed. Done by his pain clinic Care instructions and warning signs were discussed. Medications per orders. Side effects discussed. Labs and investigations per orders. This note is dictated using [employer] voice recognition software. This note was dictated but not proofread. It may contain some grammatical errors. documented in this en counter Plan of Treatment +--------+ + + + + | Date | Type | Specialty | Care Team | Description | +--------+ + + + + | 11/09/ | Office | Cardiology | Sil[place], | | | 2018 | Visit | | [address] | | | | | | [place], | | | | | | [place] [address] | | | | | | [phone] | | | | | | | | +--------+ + + + + | 11/20/ | Implant | Cardiology | Daljit Singletary, | Remote Device | | 2018 | Monitor | | [address] | Interrogation | | | | | [place], | (Primary Dx); | | | | | [place] [address] | Presence of | | | | | [phone] | permanent cardiac | | | | | | pacemaker; | | | | | | Sinoatrial node | | | | | | dysfunction (HCC) | | | | | | with symptomatic | | | | | | bradycardia | +--------+ + + + + documented as of this encounter Visit Diagnoses + + | Diagnosis | + + | Testosterone deficiency - Primary Other testicular hypofunction | + + | Hypoglycemia Hypoglycemia, unspecified | + + | Herpes Herpes simplex without mention of complication | + + documented in this encounter
--- OUTSIDE RECORDS SUMMARY | ~2019-10-04 | XMS | Encounter Summary ---
Demographics + + + | Address | [address] | | | [place] [address] | + + + | Home Phone [...] Providers + +------+ + | Care Plastic Boat Patcher Name | Role | Phone | + [...] + + | 12/21/ | Office | [facility] | [place], | Chest pain (Primary | | 2013 | Visit | CARDIOLOGY [address] | [address] | Dx); Symptomatic | | | | [place], | [place], | PVCs; | | | | [place] [address] | [place] [address] | Hyperlipidemia; | | | | [phone] | [phone] | Hypertension; | | | | | [...] this time to see a specialist in [place] and he was to follow up with [...] MOUTH EVERY DAY 30 table t 5 Ennis-3 Fatty Acids (SALMON OIL-1000 PO) CAPS, one [...] ventricular arrhythmia performed by Dr. Gambino at [facility] on 01/30/2013. Patient had spontaneous [...] to go back in 3 days to [place] for an attempt of ablation under general [...] weeks. He is in class II of [place] [employer] Association funct ional class. [...] tolic function, LVEF 65 to 70%. [employer] DDD permanent pacemaker implantation on 06/14/09 by [...] made to ensure accuracy; however, inadvertent computerized media relations director errors may be pre sent. documented in this encounter Plan of Treatment +--------+ + + + + | Date | Type | Specialty | Care Team | Description | +--------+ + + + + | 11/09/ | Office | Cardiology | [place], | | | 2019 | Visit | | [address] | | | | | | [place], | | | | | | [place] [address] | | | | | | [phone] | | | | | | | | +--------+ + + + + | 11/20/ | Implant | Cardiology | Daljit Singletary, | Remote Device | | 2019 | Monitor | | [address] [place] | Interrogation | | | | | [place], | (Primary Dx); | | | | | [place] [address] | Presence of | | | | | [phone] | permanent cardiac | | | | [...] of unspecified type of vessel, | | zuni or graft | + + documented in this encounter
--- OUTSIDE RECORDS SUMMARY | ~2019-10-04 | XMS | Encounter Summary ---
Demographics + + + | Address | [address] | | | [place] [address] | + + + | Home Phone [...] Providers + +------+ + | Care Home Visitor Name | Role | Phone | + +------+ + | Kirk French MD | PCP | | + +------+ + Encounter Details +--------+ + + + + | Date | Type | Department | Care Team | Description | +--------+ + + + + | 01/05/ | Orders Only | [facility] | Emmanuel Daniel MD | | | 2019 | | [facility] | [address] [place], [place] | | | | | PATHOLOGY [address] | [address] [place], [place] | | | | | [address] [place], [place] | [address] | | | | | [address] | | | | | | [phone] | | | +--------+ + + + [...] W | | | | | | [place], | | | | | | [place] [address] | | | | | | [phone] | | | | | | | | +--------+ + + + + | 11/20/ | Implant | Cardiology | Daljit Singletary, | Remote Device | | 2018 | Monitor | | MD [address] | Interrogation | | | | | [place], | (Primary Dx); | | | | | [place] [address] | Presence of | | | | | [phone] | permanent cardiac | | | | [...] | | | (atherosclerotic heart disease of [place] coronary artery without | | | angina [...] chronic or | | | microscopic colitis. BES:[facility]:C3NR GROSS DESCRIPTION: A. The | | | specimen, labeled "Smoaks, duodenal biopsy" is received in formalin | | | and consists of seven 0.1-0.5 cm lin fragments. Entirely submitted in | | | (A1). B. The specimen, labeled "Smoaks, right colon" is received | | | in formalin and consists of six 0.2-0.3 cm lin fragments. Entirely | | | submitted in (B1). C. The specimen, labeled "Smoaks, left colon" | | | is received in formalin and consists of six 0.2-0.3 cm lin-pink | | | fragments. Entirely submitted in (C1). am:AMB:portillo PERFORMING | | | LABORATORY: The technical component was performed by [facility] | | | [facility], [address] [place] [address] (Computed Tomography Technician: | | | Kailey Stafford MD; CLIA# [id number]). Professional interpretation was | | | performed by [facility], [facility], [address] | | | [place] [address] (Computed Tomography Technician: Ishaan | | | Anthony Dao; CLIA#: [id number]). Diagnostician: Ishaan Dao | | | Pathologist [...]
--- OUTSIDE RECORDS SUMMARY | ~2019-10-04 | XMS | Encounter Summary ---
Demographics + + + | Address | [address] | | | [place] [address] | + + + | Home Phone [...] Team Providers + +------+ + | Care Blueberry Grower Name | Role | Phone | + +------+ + PCP | Unavailable | + +------+ + Encounter Details +--------+ + + + + | Date | Type | Department | Care Team | Description | +--------+ + + + + | 10/29/ | Hospital | [facility] | Pia Akhtar | | | 2003 | Encounter | CONVERSION [address] | [address] | | | | | [address] | [address] | | | | | [place] [address] | [place] [address] | | | | | [address] | [phone] | | | | | [phone] | | | +--------+ + + + [...] | | | | | | [place] [address] | | | | | | [phone] | | | | | | | | +--------+ + + + + | 11/20/ | Implant | Cardiology | Daljit Singletary, | Remote Device | | 2019 | Monitor | | MD [address] | Interrogation | | | | | [place] [place], | (Primary Dx); | | | | | [place] [address] | Presence of | | | | | [phone] | permanent cardiac | | | | [...]
--- OUTSIDE RECORDS SUMMARY | ~2019-10-04 | XMS | Encounter Summary ---
Demographics + + + | Address | [address] | | | [place] [address] | + + + | Home Phone [...] | [facility] | | | and [...] Team Providers + +------+ + | Care Stand Grinder Name | Role | Phone | + +------+ + | Kirk French MD | PCP | | + +------+ + Reason for Visit +--------+ + | Reason | Comments | +--------+ + | Other | [place] remote | +--------+ + Encounter Details +--------+ + + + + | Date | Type | Department | Care Team | Description | +--------+ + + + + | 09/30/ | Telephone | [facility] | Daljit Singletary, | Other (Danieljoao | | 2018 | | [place] [address] | [address] | remote) | | | | [place], | [place], | | | | | [place] [address] | [place] [address] | | | | | [phone] | [phone] | | | | | | | [...] W | | | | | | [place], | | | | | | [place] [address] | | | | | | [phone] | | | | | | | | +--------+ + + + + | 11/20/ | Implant | Cardiology | Daljit Singletary, | Remote Device | | 2018 | Monitor | | MD [address] [place] | Interrogation | | | | | [place], | (Primary Dx); | | | | | [place] [address] | Presence of | | | | | [phone] | permanent cardiac | | | | [...]
--- OUTSIDE RECORDS SUMMARY | ~2019-10-04 | XMS | Encounter Summary ---
Demographics + + + | Address | [address] | | | [place] [address] | + + + | Home Phone [...] Providers + +------+ + | Care Pipe Organ Mechanic Apprentice Name | Role | Phone | [...] + + | 09/05/ | Office | [facility] | Geri Angel, | SINUS BRADYCARDIA | | 2012 | Visit | CARDIOLOGY [address] | JAIL GUARD [address] | (Primary Dx); | | | | [place], | [place], [place] | Symptomatic PVCs; | | | | [place] [address] | [address] | Hypertension; | | | | [phone] | | Hyperlipidemia | +--------+---------+ + + [...] and/or ref er you to electrophysiology in [place]. 3. Return in 3 months, or sooner [...] he did not followup with electrophysiology in [place], so he has remained on diltiaze m [...] Family Status Relation Status Age Mother 62 [place] Father Alive Unknown health Brother Alive Sister [...] by mouth Ken y. 30 tablet 6 [place]-3 Fatty Acids (SALMON OIL-1000 PO) Active CAPS, [...] Sanchez Date: September 05, 2013 : 1960 Research Laboratory Manager: PARISA Velazquez Device Rn Plastic Surgery: Katalyst Surgical Sense (mV) Impedance (?) Capture (V) Capture (ms) A Lead 4-5.6 417 1.5 0.12 RV Lead >31.36 533 2.0 0.09 LV Lead Battery Impedance (?): 452 Battery Voltage (V): 2.79 [place] Interval (ms): 162 AR Interval (ms): 245 VA Conduction: Mode Switch Events: 1 % of time: <0.1 -HYDROCHLORIC AREA SUPERVISOR: <0.1% AP-HYDROCHLORIC AREA SUPERVISOR: 0.1% -VS: 22.7% AP-VS: 77.1% HYDROCHLORIC AREA SUPERVISOR: Magnetic Rate: 85 LINDA: 65 LEAH: Current [...] ventricular arrhythmia performed by Dr. Gambino at [facility] on 01/30/2013. Patient had spontaneous PVCs [...] to go back in 3 days to [place] for an attempt of ablation under general [...] He is upgraded to class I of [place] 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 There are no [...] he would like to see electrophysiology in [place] rather than [place] as he paulino s family there, if [...] made to ensure accuracy; however, inadvertent computerized market research worker errors may be pre sent. Electronically signed [...] | | | | | | [place] [address] | | | | | | [phone] | | | | | | | | +--------+ + + + + | 11/20/ | Implant | Cardiology | Daljit Singletary, | Remote Device | | 2019 | Monitor | | MD [address] [facility] | Interrogation | | | | | [place], | (Primary Dx); | | | | | [place] [address] | Presence of | | | | | [phone] | permanent cardiac | | | | [...]
--- OUTSIDE RECORDS SUMMARY | ~2019-10-04 | XMS | Encounter Summary ---
Demographics + + + | Address | [address] | | | [place] [address] | + + + | Home Phone [...] Team Providers + +------+ + | Care Architecture Analyst Name | Role | Phone | [...] Description | +--------+--------+ + + + | 10/23/ | Refill | [facility] [place] | Daljit Singletary, | Medication Refill | | 2013 | | CARDIOLOGY [address] | [address] | | | | | [place], | [place], | | | | | [place] [address] | [place] [address] | | | | | [phone] | [phone] | | | | | | | [...] W | | | | | | [place], | | | | | | [place] [address] | | | | | | [phone] | | | | | | | | +--------+ + + + + | 11/20/ | Implant | Cardiology | Daljit Singletary, | Remote Device | | 2018 | Monitor | | [address] [facility] | Interrogation | | | | | [place], | (Primary Dx); | | | | | [place] [address] | Presence of | | | | | [phone] | permanent cardiac | | | | [...]
--- OUTSIDE RECORDS SUMMARY | ~2019-10-04 | XMS | Encounter Summary ---
Demographics + + + | Address | [address] | | | [place] [address] | + + + | Home Phone [...] Providers + +------+ + | Care Hose Turner Name | Role | Phone | + [...] [place] | Emmanuel Daniel MD | Other (? referral) | | 2019 | | GASTROENTEROLOGY | [address], [place] | | | | | [address] [place] | [address] [place], [place] | | | | | [address] [place], [place] | [address] | | | | | [address] | | | | | | [phone] | | | +--------+ + + + [...] | | | | | | [place] [address] | | | | | | [phone] | | | | | | | | +--------+ + + + + | 11/20/ | Implant | Cardiology | Daljit Singletary, | Remote Device | | 2019 | Monitor | | MD [address] | Interrogation | | | | | [place], | (Primary Dx); | | | | | [place] [address] | Presence of | | | | | [phone] | permanent cardiac | | | | [...]
--- OUTSIDE RECORDS SUMMARY | ~2019-10-04 | XMS | Encounter Summary ---
Demographics + + + | Address | [address] | | | [place] [address] | + + + | Home Phone [...] Providers + +------+ + | Care Warehouse Team Leader Name | Role | Phone | [...] [place] | | | | | [place], [place] | [address] | | | | | [address] | [place] [address] | | | | | [phone] | [phone] | | | | | | | [...] W | | | | | | [place], | | | | | | [place] [address] | | | | | | [phone] | | | | | | | | +--------+ + + + + | 11/20/ | Implant | Cardiology | Daljit Singletary, | Remote Device | | 2018 | Monitor | | [address] [place] | Interrogation | | | | | [place], | (Primary Dx); | | | | | [place] [address] | Presence of | | | | | [phone] | permanent cardiac | | | | [...] + + + | RED CELL | 5.30 | 4.20 - 5.70 | EXTERNAL | | | COUNT | | 10*6/uL | LAB | | + + + + + + | Hgb | 17.8 (H) | 13.2 - 17.0 [...] | + +-------+ + + + | TSI | 1.07 | 0.45 - 5.10 | [...] + + | LDL | 94 | mg/dL | EXTERNAL | | | Cholesterol | | | LAB | | | , | | | | | | Calculated, | | | | | | External [...]
--- OUTSIDE RECORDS SUMMARY | ~2019-10-04 | XMS | Encounter Summary ---
Demographics + + + | Address | [address] | | | [place] [address] | + + + | Home Phone [...] Team Providers + +------+ + | Care Contact Lens Polisher Name | Role | Phone | + +------+ + | Kirk French MD | PCP | | + +------+ + Reason for Visit + + + | Reason | Comments | + + + | Follow-up | | + + + | Carotid Artery | | | Disease | | + + + | Hypertension | | + + + Encounter Details +--------+---------+ + + + | Date | Type | Department | Care Team | Description | +--------+---------+ + + + | 01/05/ | [facility] | [facility] | Silvia, | Pacemaker - | | 2018 | Visit | CARDIOLOGY [address] | PARISA [address] | Medtronic - [id number] | | | | [place], | [place], | Adapta - Implanted | | | | [place] [address] | [place] [address] | 06/14/2009 (Primary | | | | [phone] | [phone] | Dx); Chest pain, | | | | | | unspecified type; | | | | | | Sinoatrial [...] involving | | | | | | the [place] coronary | | | | | | artery of the [place] | | | | | | heart without angina | | | | | | pectoris; | | | | | | Hyperlipidemia, | | | | | | mixed; Hypertension, | | | | | | unspecified type; | | | | | | Syncope, unspecified | | | | | | syncope type; | | | | | | Ascending thoracic | | | | | | aortic aneurysm | | | | | | (HCC) | +--------+---------+ + + + Social [...] + + + | Blood Pressure | 112/60 | 01/05/2018 7:59 AM | | | | | PST | | + + + + + | Pulse | 80 | 01/05/2018 7:59 AM | | | | | PST | | + + + + + | Temperature | - | - | | + + + + + | Respiratory Rate | 16 | 01/05/2018 7:59 AM | | | | | PST | | + + + + + | Oxygen Saturation | - | - | | + + + + + | Inhaled Oxygen | - | - | | | Concentration | | | | + + + + + | Weight | 115 kg (253 lb 8.5 | 01/05/2018 7:59 AM | | | | oz) | PST | | + + + + + | Height | 193 cm (6' 4") | 01/05/2018 7:59 AM | | | | | PST | | + + + + + | Body Mass Index | 30.86 | 01/05/2018 7:59 AM | | | | | PST [...] encounter Progress Notes Janeen Vega ARNP - 01/05/2018 8:30 AM PSTFormatting of this note might be differen t from the original. PATIENT NAME: Moe Sanchez : 1960: AGE: 57 y.o. PRIMARY CARE: Kirk French MD OUTPATIENT FOLLOW UP VISIT Date of Service: 01/05/2018 HISTORY OF PRESENT ILLNESS: Moe Sanchez is a 57 y.o. male with a history of non-critical coronary artery d isease involving the [place] coronary artery of the [place] heart without angina pectoris, essential h ypertension, symptomatic bradycardia status post Medtronic dual-chamber permanent pacemaker implantation 06/14/09, frequent premature ventricular contractions status post ablation sprin g 2012, and bipolar disorder with anxiety. He was last seen 02/11/17 at which time he was told the current medical regimen is effectiv e; continue present plan and medications, he will follow up in 6 months for office visit an d device interrogation, or sooner with concerns. Since that time, he has had 1 episode of chest pain. He went to the ER in [place] because th e NTG didn't relieved the pain. He was diagnosed with bronchitis. Otherwise he has had no ot her symptoms. He has had a good energy level. He tries to stay active. He has joined a [employer] gym and trying to exercise more often. He has had no chest pain except for the one episod e. He has not noticed shortness of breath except the last couple of weeks when he had bron chitis. He has not had any lightheadedness or dizziness. He has not noticed palpitations. He has not had leg swelling. He is able to sleep laying down at night without any symptoms of shortness of breath. His blood pressure has been lower than it used to be, but he has lo st some weight as well. MEDICAL, SURGICAL, AND PERSONAL HISTORY Past Medical, [...] Preventative health care Coronary artery disease involving the [place] coronary artery of the [place] heart without angina pectoris Cannabis abuse, daily use Ascending thoracic aortic aneurysm Pacemaker reprogramming/check DO NOT DELETE Anxiety about health Diarrhea Weight loss Beta Blockers - Daily Use Depression with anxiety H/O Lumbar Fusion - "6 levels" per pt CURRENT MEDICATIONS Current Outpatient Prescriptions Medication Sig Dispense Refill 5-Hydroxytryptophan (5-HTP) 100 MG CAPS Take by mouth 2 times daily. acyclovir (ZOVIRAX) 5% ointment Apply 1 Application topically every 3 hours. aluminum & magnesium hydroxide-simethicone (MAALOX REGULAR STRENGTH) [...] by mouth. clonazePAM (KLONOPIN) 0.5 mg tablet 0 cloNIDine (CATAPRES) 0.2 MG tablet Take 1 tablet by mouth 3 times daily. 270 tablet 3 cyclobenzaprine (FLEXERIL) 10 mg tablet Take 10 mg by mouth 2 times daily. dicyclomine (BENTYL) 10 mg capsule Take 1 capsule by mouth 4 times daily. diphenhydrAMINE (BENADRYL) 25 MG capsule Take 25 mg by mouth as needed. MELATONIN TABS, at bedtime as needed Methylsulfonylmethane (MSM) 1000 MG TABS Take One time daily. metoprolol succinate (TOPROL-XL) 200 mg ER tablet take 1 tablet by mouth every evening 90 tablet 0 [facility] Natural Products (OSTEO [...] 3RD DOSE, CALL 911 100 tablet 3 [place]-3 Fatty Acids (SALMON OIL-1000 PO) CAPS, one capsule by mouth daily twice daily ONE TOUCH DELICA LANCETS [facility] Check glucose as needed for hypoglycemia 100 [...] mg by mouth 2 times daily. 1 VENTOLIN HFA 108 (90 Base) MCG/ACT inhaler inhale 2 puffs by mouth every 4 hours if nee ded for cough OR DIFFICULTY BREATHING 0 No current facility-administered medications for this [...] Review of Systems Constitutional: Positive for malaise/fatigue. HENT: Positive for nosebleeds. Respiratory: Positive for cough (due to sinus infection ) and shortness of breath. Cardiovascular: Positive for chest pain and palpitations. Negative for orthopnea, claudicat ion and leg swelling. Neurological: Positive for weakness and headaches (due to sinus infection). Negative for di zziness. OBJECTIVE: PHYSICAL EXAM BP 112/60 | Pulse 80 | Resp 16 | Ht 1.93 m (6' 4") | Wt 115 kg (253 lb 8.5 oz) | BMI 3 0.86 kg/m Physical Exam Constitutional: He is oriented [...] or performed during the hospital encounter of 01/05/18 ECG 12 lead Result Value Ref Range INTERPRETATION TEXT LAB RESULTS reviewed during visit today primarily from [facility]: LIPID Lab Results Component Value Date TRIG 88 05/27/2012 HDL 42 05/27/2012 LDL 173 (A) 05/27/2012 CHOLHDL 3.4 06/22/2016 LDLEX 76 10/18/2017 HDLEX 63 10/18/2017 TRIGEX 63 10/18/2017 CHOLEX 152 10/18/2017 CHEMISTRY Lab Results Component Value Date GLU 107 01/24/2017 GLUEX 100 (A) 10/18/2017 NA 141 01/24/2017 NAEX 139 10/18/2017 K 4.1 01/24/2017 KEX 4.1 10/18/2017 CL 106 01/24/2017 CLEX 107 10/18/2017 CO2 25 01/24/2017 CO2EX 26 10/18/2017 CALCIUM 9.6 01/24/2017 ALKPHOS 49 01/24/2017 AST 28 01/24/2017 ASTEX 25 10/18/2017 ALT 24 01/24/2017 ALTEX 28 10/18/2017 BILITOT 0.9 01/24/2017 CREA 0.84 01/24/2017 BUN 12 01/24/2017 EGFR >60 04/03/2013 EGFREX >60 10/18/2017 CREEX 0.9 10/18/2017 HEMATOLOGY Lab Results Component Value Date WBC 7.2 01/24/2017 WBCEX 6.01 10/18/2017 HGB 16.2 01/24/2017 HGBEX 16.7 10/18/2017 HCT 48.5 01/24/2017 HCTEX 48.3 10/18/2017 PLT 139 (L) 01/24/2017 PLTEX 131 (A) 10/18/2017 I reviewed records from [facility] for office visit on 01/2017 whic h is summarized in the HPI. Above data and testing is reviewed this visit; testing below is historical data unless othe rwise specified. ASSESSMENT: 1. Essential hypertension with goal blood pressure less than 130/80: A. Today it has been well controlled. He is in class I of the [place] 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 On physical examination there are no signs of fluid overload. 2. Non-critical Coronary artery disease involving the [place] coronary a rtery of the [place] heart without angina pectoris: A. Normal exercise [...] regurgitation, mild aortic valve insufficiency. F. Echocardiogram 07/26/16, shows normal left ventricular size, w all [...] Normal IVC with normal respiratory collapse H. Today, he had one episode that had [...] to go back in 3 days to [place] for an attempt of ablation under general [...] a normal stable device function. Estimated remaining [facility] is 3.5 years.. 5. Lightheadedness [...] effective; continue present plan and medications. 2. Schedule for device interrogation RAFFI 3. He will follow up in 6 months for office visit and device interrogation, or sooner with concerns. Portions of this chart may have been created with MinuteKey voice recognition software. Occasi onal wrong-word or [...] | | | | | | [place] [address] | | | | | | [phone] | | | | | | | | +--------+ + + + + | 11/20/ | Implant | Cardiology | Sydni Singletary, | Remote Device | | 2019 | Monitor | | MD [address] [facility] | Interrogation | | | | | [place], | (Primary Dx); | | | | | [place] [address] | Presence of | | | | | [phone] | permanent cardiac | | | | [...] | ECG 12 LEAD | Routin | 01/06/2018 | Pacemaker - | Results for this | | | e | 4:37 PM | Medtronic - [id number] | procedure are in the | | | | PST | Adapta - Implanted | results section. | | | | | 06/14/2009 Chest | | | | | | pain, unspecified | | | | | | type Sinoatrial | | | | | | node dysfunction | | | | | | (HCC) with | | | | | | symptomatic | | | | | | bradycardia | | | | | | Symptomatic PVCs | | | | | | Tachycardia | | | | | | Coronary artery | | | | | | disease involving | | | | | | the [place] coronary | | | | | | artery of the [place] | | | | | | heart without angina | | | | | | pectoris | | | | | | Hyperlipidemia, | | | | | | mixed Hypertension, | | | | | | unspecified type | | | | | | Syncope, unspecified | | | | | | syncope type | | | | | | Ascending thoracic | | | | | | aortic aneurysm | | | | | | (HCC) | | + +--------+ + + + documented in this encounter Results ECG 12 lead (01/06/2018 4:37 PM PST) + + + + + [...] + + + + | P-R | 204 | ms | [facility] | | | INTERVAL | | | | | + + + + + + | QRS | 94 | ms | [facility] | | | DURATION | | | | | + + + + + + | Q-T | 376 | ms | [facility] | | | INTERVAL | | | | | + + + + + + | Q-T | 414 | ms | [facility] | | | INTERVAL | | | | | | (CORRECTED) | | | | | + + + + + + | P WAVE AXIS | 36 | degrees | [facility] | | + + + + + + | QRS AXIS | 69 | degrees | [facility] | | + + + + + + | T AXIS | 24 | degrees | [facility] | | + + + + + + | INTERPRETAT | Atrial-paced | | [facility] | | | ION TEXT | rhythmAbnormal ECGWhen | | | | | | compared with ECG of | | | | | | 24-JAN-2017 12:27,No | | | | | | significant change was | | | | | | foundConfirmed by | | | | | | GURJIT WINKLER, SYDNI | | | | | | ([id number]) on 01/06/2018 | | | | | | 4:37:55 PM | | | | + + [...] | Diagnosis | + + | Pacemaker - Medtronic - [id number] Adapta - Implanted 06/14/2009 - Primary Cardiac | | pacemaker in situ | + + | Chest pain, unspecified type | + + | Sinoatrial node dysfunction (HCC) with symptomatic bradycardia Sinoatrial node | | dysfunction | + + | Symptomatic PVCs Other premature beats | + + | Tachycardia Tachycardia, unspecified | + + | Coronary artery disease involving the [place] coronary artery of the [place] heart without | | angina pectoris | + + | Hyperlipidemia, mixed Mixed hyperlipidemia | + + | Hypertension, unspecified type | + + | Syncope, unspecified syncope type | + + | Ascending thoracic aortic aneurysm (HCC) Thoracic aneurysm without mention of rupture | + + documented in this encounter
--- OUTSIDE RECORDS SUMMARY | ~2019-10-04 | XMS | Encounter Summary ---
Demographics + + + | Address | [address] | | | [place] [address] | + + + | Home Phone [...] Team Providers + +------+ + | Care Life Claims Examiner Name | Role | Phone | [...] | CARDIOLOGY [address] [place] | reprogramming/check | | | | [place], | [place], | DO NOT DELETE | | | | [place] [id number] | [place] [id number] | (Primary Dx); | | | | [phone] | [phone] | Sinoatrial node | | | | [...] | | | | | | [place] [id number] | | | | | | [phone] | | | | | | | | +--------+ + + + + | 11/20/ | Implant | Cardiology | Daljit Singletary, | Remote Device | | 2018 | Monitor | | MD [address] [place] | Interrogation | | | | | [place], | (Primary Dx); | | | | | [place] [address] | Presence of | | | | | [phone] | permanent cardiac | | | | [...] 1960: | | AGE: 56 y.o.Pacemaker Evaluation ReportAupeak behavioral health servicest 2015Reason for evaluation: | | routineIndication for [...]
--- OUTSIDE RECORDS SUMMARY | ~2019-10-04 | XMS | Encounter Summary ---
Demographics + + + | Address | [address] | | | [place] [address] | + + + | Home Phone [...] Providers + +------+ + | Care Sports Umpire Name | Role | Phone | + +------+ + | Kirk French MD | PCP | | + +------+ + Encounter Details +--------+---------+ + + + | Date | Type | Department | Care Team | Description | +--------+---------+ + + + | 01/05/ | Surgery | [facility] | Emmanuel Daniel MD | EGD | | 2019 | | MED CTR MP INTRA OP | [address], [place] | | | | | [address] | [address] [place], [place] | | | | | [place], [place] | [address] | | | | | [address] | | | | | | [phone] | | | +--------+---------+ + + + [...] for a few hours. Date Last Reviewed: 09/22/201619999359-7798 [employer]. [address] [place] [address]. All righ ts reserved. This information is [...] vomiting, or vomiting blood Date Last Reviewed: 05/22/201619998747-5350 [employer]. [address] [place] [address]. All righ ts reserved. This information is [...] You can't be awakened Date Last Reviewed: 09/08/201619999319-9209 [employer]. [address] [place] [address], [place] [address]. All righ ts reserved. This information is [...] + + + +---------+ + + | Owaneco-3 Fatty | CAPS, one capsule by | [...] [address] | | | | | | [address] [place], | | | | | | [place] [address] | | | | | | [phone] | | | | | | | | +--------+ + + + + | 11/20/ | Implant | Cardiology | Daljit Singletary, | Remote Device | | 2018 | Monitor | | [address] [facility] | Interrogation | | | | | [place], | (Primary Dx); | | | | | [place] [address] | Presence of | | | | | [phone] | permanent cardiac | | | | [...] + + | Performed at: 01 - [facility] [address], | REFERENCE LAB | | [place], [place] [address] Manager Library: Miguel Galarza MD, Phone: | [facility] | | [phone] | | + + + + + + + + | Performing | Address | City/State/Zipcode | Phone Number | | Organization | | | | + + + + + | REFERENCE LAB | [address] | [place] [address] | [phone] | | [facility] | Drive [...] + + | Performed at: 01 - [facility] [address] [address], | REFERENCE LAB | | [place], [place] [address] Manager Library: Miguel Galarza MD, Phone: | [facility] | | [phone] | | + + + + + + + + | Performing | Address | City/State/Zipcode | Phone Number | | Organization | | | | + + + + + | REFERENCE LAB | [address] | [place] [address] | [phone] | | [facility] | Drive [...] | | , Qual | | | [facility] | [...] [address] | [place] | [phone] | | [facility] | | [address] | | | - LABORATORY | | [...] Negative for toxigenic | | [facility] | | | [facility] Antigen | Clostridium difficile | | MEDICAL | | | | | | CENTER - | | | | | | LABORATORY | | + + + + + + | C. Diff | NegativeComment: No data | Negative | [facility] | | | Toxin A/B | exists on the effects | | [facility] | | | EIA | of colonic [...] [address] | [place] | [phone] | | [facility] | | [address] | | | - LABORATORY | | [...] [address] | [place] | [phone] | | [facility] | | [address] | | | - LABORATORY | | [...] [address] | [place] | [phone] | | [facility] | | [address] | | | - LABORATORY | | [...] + | [facility] | [address] | [place] | [phone] | | [facility] | | [address] | | | - LABORATORY | | [...] [address] | [place] | [phone] | | [facility] | | [address] | | | - LABORATORY | | | | + + + + + EGD (01/05/2019 8:36 AM PST) + + | Specimen | + + | | + + + + -+ | Narrative | Performed At | + + -+ | | [facility] | | GastroenterologyPatient Name: Moe Venegas Date: | PROVATION | | 01/05/2019 8:36 AMMRN: [id number] #: [id number] of : | | | 9Admit Type: AmbulatoryAge: 58Room: [facility] 01Gender: MaleNote | | | Status: FinalizedAttending MD: Emmanuel Daniel , [facility] | | | Upper GI endoscopyIndications: Diarrhea, Weight | | | lossProviders: Emmanuel Daniel MD, Heidi Gonzalezchfield, | | | RN, Kim Hicks, Platform Beater, | | | Jarett Barakat MD (Anesthesia [...] physician, the nurse, the anesthesiologist and the nuclear plant instrument technician | | | in the endoscopy [...] | | Imaging was performed using the [employer] | | | Endoscopy (FICE) [...] Scope In: 8:43:57 AMScope Out: 8:49:[address] | | | [facility], [address] [place] [address] | | | [phone] | | |Recommendation: | | | - [...] |Scope Out: 8:49:50 AM | | | [facility], [address] [facility], [place], [place] | | | [address] | | + + -+ + +---------+ [...] | PROVATION | | 01/05/2019 8:36 AMMRN: [id number] #: [id number] of : | | | 9Admit Type: AmbulatoryAge: 58Room: [facility] 01Gender: MaleNote | | | Status: FinalizedAttending MD: Emmanuel Daniel , [facility]cedure: | | | ColonoscopyIndications: Clinically significant diarrhea of | | | unexplained origin, Weight lossProviders: | | | Emmanuel Daniel MD, Heidi An RN, Kim | | | Fiorella Hicks, Platform Beater, Jarett Alejo | | | MD Roshni (Anesthesia Staff)Referring [...] | | | the anesthesiologist and the nuclear plant instrument technician in the endoscopy suite. | | [...] for pathology results in 1 week.Emmanuel Daniel | | | 01/05/2019 9:25:47 AMThis report has been signed | | | electronically.Number of Addenda: 0Note Initiated On: 01/05/2019 8:36 | | | AMScope Withdrawal Time: 0 hours 9 minutes 3 seconds Total Procedure | | | Duration: 0 hours 15 minutes 2 seconds Scope In: 8:51:26 AMScope Out: | | | 9:06:28 AM [facility], [address] [facility], | | | [place] [address] | | | - Discharge patient to [...] |Scope Out: 9:06:28 AM | | | [facility], [address] [place] [address], [place], [place] | | | [address] | | + + -+ + +---------+ [...] | | | (atherosclerotic heart disease of choctaw coronary artery without | | | angina [...] chronic or | | | microscopic colitis. BES:[place]:C3NR GROSS DESCRIPTION: A. The | | | specimen, labeled "[place], duodenal biopsy" is received in formalin | | | and consists of seven 0.1-0.5 cm lin fragments. Entirely submitted in | | | (A1). B. The specimen, labeled "[place], right colon" is received | | | in formalin and consists of six 0.2-0.3 cm lin fragments. Entirely | | | submitted in (B1). C. The specimen, labeled "[place], left colon" | | | is received in formalin and consists of six 0.2-0.3 cm lin-pink | | | fragments. Entirely submitted in (C1). am:AMB:rds PERFORMING | | | LABORATORY: The technical component was performed by [employer] | | | [facility], [address] [place] [address] (Applications Engineer: | | | Kailey Stafford MD; CLIA# [id number]). Professional interpretation was | | | performed by [facility], [facility], [address] | | | [place] [address] (Applications Engineer: Ishaan | | | Anthony Dao; CLIA#: [id number]). Diagnostician: Ishaan Fitzpatrick | | | Sylwia WINKLER Pathologist Electronically Signed 01/06/2019 | | + + + + +---------+ + + | Performing | Address | City/State/[facility] Mex[facility]ocode | Phone Number | | Organization | | | | + +---------+ + + | [place] [facility] | | | | | [facility] | | | | + +---------+ + + documented in this encounter Visit Diagnoses Not on filedocumented in this encounter Administered Medications + +--------+---------+------+------+------+ | Medication Order | MAR | Action | Dose | Rate | Site | | | Action | Date | | | | + +--------+---------+------+------+------+ + +---+ | albuterol 2.5 mg/3 mL nebulizer | | | solution 2.5 mg 2.5 mg, | | | Nebulization, ONCE PRN, Wheezing, | | | Starting [facility] 01/05/19 at 0924, | | | For [...] | mL/hr | | | CONTINUOUS, Starting [facility] 01/05/19 | | AM PST | | | | | at 0800, Pre-op | | | | | | + +---------+ +---+-------+---+ + +---+ | | | + +---+ | ondansetron (ZOFRAN) injection | | | 4 mg 4 mg, Oral, EVERY 4 HOURS | | | PRN, Nausea, Vomiting, Starting | | | [facility] 01/05/19 at 0924, | | | Recovery/Phase I | | + +---+ | | | + +---+ | ondansetron (ZOFRAN) injection | | | 4 mg 4 mg, Intravenous, ONCE | | | PRN, Nausea, Starting [facility] 01/05/19 | | | at 0924, For 1 dose, | | | Recovery/Phase I | | + +---+ | | | + +---+ documented in this encounter
--- OUTSIDE RECORDS SUMMARY | ~2019-10-04 | XMS | Encounter Summary ---
Demographics + + + | Address | [address] | | | [place] [address] | + + + | Home Phone [...] Providers + +------+ + | Care Bundle Tier And Labeler Name | Role | Phone | + [...] | on | GASTROENTEROLOGY | [address], [place] | | | | | [address] [place] | [address] [place], [place] | | | | | [address] [place], [place] | [address] | | | | | [address] | | | | | | [phone] | | | +--------+ + + + [...] | | | | | | [place] [address] | | | | | | [phone] | | | | | | | | +--------+ + + + + | 11/20/ | Implant | Cardiology | Daljit Singletary, | Remote Device | 2018 | Monitor | | [facility] | Interrogation | | | | | [place], | (Primary Dx); | | | | | [place] [address] | Presence of | | | | | [phone] | permanent cardiac | | | | [...]
--- OUTSIDE RECORDS SUMMARY | ~2019-10-04 | XMS | Encounter Summary ---
Demographics + + + | Address | [address] | | | [place] [address] | + + + | Home Phone | | + + + | Preferred Language | Unknown | + + + | Marital Status | | + + + | Mandaen Affiliation | 1013 | + + + | Race | Unknown | + + + | Ethnic Group | Unknown | + + + Author + + + | Author | [facility] | | | and [place] | + + + | Organization | [facility] | | | and [...] Team Providers + +------+ + | Care Metal Control Coordinator Name | Role | Phone | + +------+ + | Kirk French MD | PCP | | + +------+ + Encounter Details +--------+ + + + + | Date | Type | Department | Care Team | Description | +--------+ + + + + | 09/19/ | Orders Only | [facility] | Hellberg, Geri, | Pacemaker | | 2015 | | CARDIOLOGY [address] | CLOSING MANAGER [address] | reprogramming/check | | | | [address] [place], | [place], [place] | DO NOT DELETE | | | | [place] [address] | [address] | (Primary Dx); | | | | [phone] | | Pacemaker - | | | [...] W | | | | | | [place], | | | | | | [place] [address] | | | | | | [phone] | | | | | | | | +--------+ + + + + | 11/20/ | Implant | Cardiology | Daljit Singletary, | Remote Device | | 2018 | Monitor | | [address] | Interrogation | | | | | [place], | (Primary Dx); | | | | | [place] [address] | Presence of | | | | | [phone] | permanent cardiac | | | | | | pacemaker; | | | | | | Sinoatrial node | | | | | | dysfunction (HCC) | | | | | | with symptomatic | | | | | | bradycardia | +--------+ + + + + documented as of this encounter Results Device Interrogation (01/01/2016 4:41 PM PST) + + + | Narrative | Performed At | + + + | PARISA Velazquez 01/01/2016 16:41 PATIENT NAME: | MODESTO | | Moe Sanchez : 1960: AGE: 55 | | | y.o. Device In-office Evaluation Report 12/31/2015 Reason | | | for evaluation: routine Indication for device: ICD-10-CM | | | ICD-9-CM 1. Sinoatrial node dysfunction (HCC) with symptomatic | | | bradycardia I49.5 427.81 ECHO Complete Device Interrogation | | | 2. Coronary artery disease involving cantwell coronary artery of | | | cantwell heart without angina pectoris I25.10 414.01 ECHO Complete 3. | | | Ascending thoracic aortic aneurysm (HCC) I71.2 441.2 ECHO Complete | | | 4. Essential hypertension I10 401.9 5. Hyperlipidemia, mixed | | | E78.2 272.2 6. Pacemaker reprogramming/check DO NOT DELETE Z45.018 | | | V53.31 Device Interrogation 7. Pacemaker - Medtronic - ADDR01 | | | Adapta - Implanted 06/14/2009 Z95.0 V45.01 Device Interrogation | | | Patient was seated and device was interrogated (with programming | | | changes made). Device parameters, battery status, percentages pacing | | | and significant arrhythmias were reviewed. Heart rate histograms | | | were assessed for adequate heart rate response and any alerts | | | reviewed. Appropriate lead impedance testing was performed. Pacing | | | impedances were reviewed for any significant changes. Sensing tests | | | were performed by decreasing LRL. Adequacy of pacing thresholds were | | | tested by increasing LRL for each lead and recorded for loss of | | | capture. Final outputs were assessed for adequate safety margins. | | | Summary of findings: No events. Heart rate histogram shows a fair | | | distribution. There is a normal stable device function. Estimated | | | remaining battery longevity is 5 years. Please see the scanned | | | Paceart report and device PDF for further details. | | + + + + +---------+ [...]
--- OUTSIDE RECORDS SUMMARY | ~2019-10-04 | XMS | Encounter Summary ---
Demographics + + + | Address | [address] | | | [place] [address] | + + + | Home Phone [...] Providers + +------+ + | Care Retail Department Manager Name | Role | Phone | + +------+ + | Kirk French MD | PCP | | + +------+ + Encounter Details +--------+ + + + + | Date | Type | Department | Care Team | Description | +--------+ + + + + | 07/21/ | Hospital | [facility] | Daljit Singletary, | | | 2018 | Encounter | MED CTR NUCLEAR | MD [address] | | | | | MEDICINE [address] [place], | | | | | [place], | [place] [address] | | | | | [place] [address] | [phone] | | | | | [phone] | | | +--------+ + + + [...] + + + +---------+ + + | [place]-3 Fatty | CAPS, one capsule by | [...] | | 2019 | Visit | | PARSIA [place] [address] | | | | | | [place], | | | | | | [place] [address] | | | | | | [phone] | | | | | | | | +--------+ + + + + | 11/20/ | Implant | Cardiology | Daljit Singletary, | Remote Device | | 2019 | Monitor | | [address] [facility] | Interrogation | | | | | [place], | (Primary Dx); | | | | | [place] [address] | Presence of | | | | | [phone] | permanent cardiac | | | | [...] | | | | | | Starting [facility] 07/21/18 at 1224, For | | | | | | | 1 dose, Nuclear Medicine | | | | | | + +--------+ + +------+------+ +---+---+ | | | +---+---+ documented in this encounter"
--- OUTSIDE RECORDS SUMMARY | ~2019-10-04 | XMS | Encounter Summary ---
Demographics + + + | Address | [address] | | | [place] [address] | + + + | Home Phone [...] Providers + +------+ + | Care Health Worker Name | Role | Phone | [...] [address] | | | | | [place], | [place], | | | | | [place] [address] | [place] [address] | | | | | [phone] | [phone] | | | | | | | [...] W | | | | | | [place], | | | | | | [place] [address] | | | | | | [phone] | | | | | | | | +--------+ + + + + | 11/20/ | Implant | Cardiology | Daljit Singletary, | Remote Device | | 2018 | Monitor | | [address] | Interrogation | | | | | [place], | (Primary Dx); | | | | | [place] [address] | Presence of | | | | | [phone] | permanent cardiac | | | | [...]
--- OUTSIDE RECORDS SUMMARY | ~2019-10-04 | XMS | Encounter Summary ---
Demographics + + + | Address | [address] | | | [place] [address] | + + + | Home Phone [...] Providers + +------+ + | Care Data Examination Clerk Name | Role | Phone | [...] [place] | | | | | | [address] | | | | | | [phone] | | | +--------+ + + + [...] | | | | | | [place], | | | | | | [place] [address] | | | | | | [phone] | | | | | | | | +--------+ + + + + | 11/20/ | Implant | Cardiology | Daljit Singletary, | Remote Device | | 2018 | Monitor | | [address] [facility] | Interrogation | | | | | [place], | (Primary Dx); | | | | | [place] [address] | Presence of | | | | | [phone] | permanent cardiac | | | | [...]
--- OUTSIDE RECORDS SUMMARY | ~2019-10-04 | XMS | Encounter Summary ---
Demographics + + + | Address | [address] | | | [place] [address] | + + + | Home Phone [...] Team Providers + +------+ + | Care Portfolio Analyst Name | Role | Phone | [...] | Palpitations | [address] | | | | | Procedures | [address] | [address] [place] | | | | | ECHO | [place], | [place], [place] | | | | | Complete | [place] [address] | [address] | | | | | | Phone: | Phone: | | | | | | [phone] | [phone] | | | | | | Fax: | Fax: | | | | | | [phone] | [phone] | +--------+--------+ + + + + Encounter Details +--------+ + + + + | Date | Type | Department | Care Team | Description | +--------+ + + + + | 12/30/ | Hospital | [facility] | TimmyshaistateshaShaistatimmy, | Palpitations | | 2012 - | Encounter | MED CTR XRAY [address] | MD [address] | | | | | [place] | [address] [place], | | | 01/01/ | | [place] [address] | [place] [address] | | | 2012 | | [phone] | [phone] | | | | | | | [...] mg by mouth | | 0 | / | | | tablet | Daily. | | | 12 | | + + + +---------+ + + | diphenhydrAMINE | Take 25 mg by mouth | | 0 | / | | | (BENADRYL) 25 MG | as needed. | | | 12 | | | capsule | | | | | | + + + +---------+ + + | David-3 Fatty | CAPS, one capsule by | [...] + + + +---------+ + + | predniSONE | Take 10 mg by mouth | | 0 | | | | (DELTASONE) 10 mg | Daily. | | | | 3 | | tablet | | [...] | | | | | | [place] [address] | | | | | | [phone] | | | | | | | | +--------+ + + + + | 11/20/ | Implant | Cardiology | Daljit Singletary, | Remote Device | | 2019 | Monitor | | [address] | Interrogation | | | | | [place], | (Primary Dx); | | | | | [place] [address] | Presence of | | | | | [phone] | permanent cardiac | | | | [...] + | ECHO COMPLETE | Routin | 12/30/2012 | Palpitations | Results for this | | | e | 4:08 PM | | procedure are in the | | | | PST | | results section. | + +--------+ + + + documented in this encounter Results ECHO Complete (12/30/2012 4:08 PM PST) + + | Specimen | + + | | + + + + + | Narrative | Performed At | + + + | [facility] | [place] | | Department [address] [facility] | [facility] | | [ rep ct [address]] [ rep ct [facility] | | st zip] Signed | - IMAGING | | | | | Patient Name: MOE GAY W | | | Physician: MIGUELINA : 1960 Age: 52 Sex: M Unit | | | #: [id number] Exam Date: 12/30/12 Location: | | | G Report #: [id number] Page: | | | %(RAD)RES..mtdd.print.filter("pg") of %(RAD) | | | RES..mtdd.print.filter("tpg") | | | | | | Accession Number: [id number] | | | E C H O C A R D I O G R A P H Y R E P O R T | | | HEIGHT: 76" WEIGHT: 270# | | | CLINICAL DOCUMENTATION CLERK: JAMEEL REFERRING DR: TIMMY DRAKE DR: | [...] | | | Transcribed Date/Time: 12/30/2012 16:34 Biometric Screener: | | | <<Signature on File>> | | | Daljit | | | MD CLEOPATRA Singletary FASE01/02/13 0955 <Electronically signed by | | | Daljit Singletary MD, [facility], FACP, FASE, FASNC> Rashadong | | | MD CLEOPATRA Singletary 12/30/12 1608 Biometric Screener: Neurologixkaryx | | | Hhioutatkzmsg09/08/13 1634 Daljit Singletary MD FACC | | | FASE | | + + + + + + + + | Performing | Address | City/State/Zipcode | Phone Number | | Organization | | | | + + + + + | [facility] | [address] | [place] | [phone] | | [facility] | | [address] | | | - IMAGING | | | | + + + + + documented in this encounter Visit Diagnoses + + | Diagnosis | + + | Palpitations | + + documented in this encounter
--- OUTSIDE RECORDS SUMMARY | ~2019-10-04 | XMS | Encounter Summary ---
Demographics + + + | Address | [address] | | | [place] [address] | + + + | Home Phone [...] Team Providers + +------+ + | Care Chef Concierge Name | Role | Phone | + [...] [address] | | | | | [address] | [place] | | | | | [phone] | [address] | | | | | | [phone] | | | | | | | [...] W | | | | | | [place], | | | | | | [place] [address] | | | | | | [phone] | | | | | | | | +--------+ + + + + | 11/20/ | Implant | Cardiology | Daljit Singletary, | Remote Device | | 2018 | Monitor | | [address] | Interrogation | | | | | [place], | (Primary Dx); | | | | | [place] [address] | Presence of | | | | | [phone] | permanent cardiac | | | | [...]
--- OUTSIDE RECORDS SUMMARY | ~2019-10-04 | XMS | Encounter Summary ---
Demographics + + + | Address | [address] | | | [place] [address] | + + + | Home Phone [...] Team Providers + +------+ + | Care Upholsterer Outside Name | Role | Phone | + [...] Closed | | Radiology | Diagnoses | [place], | [facility] | | | | | Other chest | PARISA Nevarez | Medicine | | | | | pain | [address] | [address] | | | | | Procedures | [place] | [place], | | | | | [place] [facility] | [place], [place] | [place] | | | | | Stress Test | [address] | [address] | | | | | (Vasodilator | Phone: | Phone: | | | | | ) CHG | [phone] | [phone] | | | | | MYOCARDIAL | Fax: | Fax: | | | | | SPECT | [phone] | [phone] | | | | | MULTIPLE | | | | | | | STUDIES | | | +--------+--------+ + + + + Reason for Visit +--------+ + | Reason | Comments | +--------+ + | Other | medication interactions, chest pain | +--------+ + Encounter Details +--------+ + + + + | Date | Type | Department | Care Team | Description | +--------+ + + + + | 10/16/ | Telephone | [facility] | Xanderberg, Geri, | Other (medication | | 2012 | | CARDIOLOGY [address] | TRANSCRIBER [address] | interactions, chest | | | | [address] [place], | [place] | pain) | | | | [place] [address] | [address] | | | | | [phone] | | | +--------+ + + + [...] W | | | | | | [place], | | | | | | [place] [address] | | | | | | [phone] | | | | | | | | +--------+ + + + + | 11/20/ | Implant | Cardiology | Daljit Singletary, | Remote Device | | 2018 | Monitor | | [address] | Interrogation | | | | | [address], | (Primary Dx); | | | | | [place] [address] | Presence of | | | | | [phone] | permanent cardiac | | | | | | pacemaker; | | | | | | Sinoatrial node | | | | | | dysfunction (HCC) | | | | | | with symptomatic | | | | | | bradycardia | +--------+ + + + + documented as of this encounter Results [place] Nuclear Stress Test (Vasodilator) (12/07/2013 7:01 AM PST) + + | Specimen | + + | | + + + + + | Narrative | Performed At | + + + | [facility] Diagnostic [facility] | [place] | | Department [address] [place] [address] [facility] | | [ rep ct [address]] [ rep [facility] | | st zip] Signed | - IMAGING | | | | | Patient Name: MOE GAY | | | Physician: JACKLYN : 1960 Age: 53 Sex: M Unit | | | #: [id number] Exam Date: 12/06/13 Location: | | | [facility] Report #: [id number] Page: | | | %(RAD)RES..mtdd.print.filter("pg") of %(RAD) | | | RES..mtdd.print.filter("tpg") | | | | | | Accession Number: [id number] | | | PERSANTINE SESTAMIBI STRESS TEST, [...] Transcribed Date/Time: 12/07/2013 08:18 | | | Tubing Mill Setter: <<Signature on File>> | | | | | | Daljit Singletary MD [facility] FAS12/07/13 1321 <Electronically signed | | | by Daljit Singletary MD, [facility], [facility], ADE[facility], [facility]> Daljit | | | MD [employer] [facility] ADELINE 12/07/13 0701 Tubing Mill Setter: Jessica | | | Orcbxnepgylmq72/16/14 0818 PARISA Garcia | | + + + + + + + + | Performing | Address | City/State/Zipcode | Phone Number | | Organization | | | | + + + + + | [facility] | [address] | [place] | [phone] | | [facility] | | [address] | | | - IMAGING | | | | + + + + + documented in this encounter Visit Diagnoses + + | Diagnosis | + + | Other chest pain - Primary | + + documented in this encounter
--- OUTSIDE RECORDS SUMMARY | ~2019-10-04 | XMS | Encounter Summary ---
Demographics + + + | Address | [address] | | | [place] [address] | + + + | Home Phone [...] Team Providers + +------+ + | Care Psychological Operations Name | Role | Phone | + [...] | | | DDD | Scotty C, KNITTING MACHINE FIXER | [facility] | | | | | (degenerativ | [address] | [facility] | | | | | e disc | [place] | MEDICAL | | | | | disease), | [address] | CENTER [address] | | | | | lumbar | B | [place] | | | | | Chronic | [place], [place] | [place], | | | | | left-sided | [address] | [place] [address] | | | | | low back | Phone: | Phone: | | | | | pain with | [phone] | [phone] | | | | | left-sided | Fax: | Fax: | | | | | sciatica | [phone] | [phone] | | | | | History of [...] | | | DDD | Scotty C, KNITTING MACHINE FIXER | [address] | | | | | (degenerativ | [address] | [place], | | | | | e disc | [place] | [place] [address] | | | | | disease), | [address]IVE [address] | Phone: | | | | | lumbar | B | [phone] | | | | | Chronic | [place], [place] | Fax: | | | | | left-sided | [address] | [phone] | | | | | low back | Phone: | | | | | | pain with | [phone] | | | | | | left-sided | Fax: | | | | | | sciatica | [phone] | | | | | | History [...] + + | 07/01/ | Hospital | [facility] | Scotty Galdamez, | DDD (degenerative | | 2018 | Encounter | MED CTR [address] | KNITTING MACHINE FIXER [address] | disc disease), | | | | [place], | [address] | lumbar; [place] | | | | [place] [address] | [place] [address] | left-sided low back | | | | [phone] | [phone] | pain with left-sided | | | [...] + + + +---------+ + + | [place]-3 Fatty | CAPS, one capsule by | [...] | | | | | | [place] [address] | | | | | | [phone] | | | | | | | | +--------+ + + + + | 11/20/ | Implant | Cardiology | AnshujohnsoncherelleShaistapawanotto, | Remote Device | | 2019 | Monitor | | [address] [facility] [place] | Interrogation | | | | | [place], | (Primary Dx); | | | | | [place] [address] | Presence of | | | | | [phone] | permanent cardiac | | | | [...]
--- OUTSIDE RECORDS SUMMARY | ~2019-10-04 | XMS | Encounter Summary ---
Demographics + + + | Address | [address] | | | [place] [address] | + + + | Home Phone [...] Organization | [facility] | | | and [place] | + [...] Team Providers + +------+ + | Care Clip Baker Name | Role | Phone | [...] + + | 04/07/ | Telephone | [facility] | Matthew Uriarte | Medication Orders | | 2019 | | [address] | MD Tawanna [address] | (Medication ) | | | | [place], [place] | [place], [place] | | | | | [address] | [address] | | | | | [phone] | | | +--------+ + + + [...] | | | | | | [place] [address] | | | | | | [phone] | | | | | | | | +--------+ + + + + | 11/20/ | Implant | Cardiology | Daljit Singletary, | Remote Device | | 2018 | Monitor | | MD [place]iqu[place]ro | Interrogation | | | | | [facility], | (Primary Dx); | | | | | [place] [address] | Presence of | | | | | [phone] | permanent cardiac | | | | [...]
--- OUTSIDE RECORDS SUMMARY | ~2019-10-04 | XMS | Encounter Summary ---
Demographics + + + | Address | [address] | | | [place] [address] | + + + | Home Phone [...] Team Providers + +------+ + | Care Batch Dumper Name | Role | Phone | + [...] + + | 07/01/ | Hospital | [facility] | Scotty Galdamez, | DDD (degenerative | | 2018 | Encounter | MED CTR XRAY [address] | STAND UP COMEDIAN [address] | disc disease), | | | | [place] | [address] | lumbar; Chronic | | | | [place] [address] | [place] [address] | left-sided low back | | | | [phone] | [phone] | pain with left-sided | | | | | | sciatica; History | | | | | Rad, [facility] | of spinal fusion; | | | [...] + + + +---------+ + + | [place]-3 Fatty | CAPS, one capsule by [...] 1,000 mg by | | 1 | 01/08/20 | | | (VALTREX) 1 g tablet [...] | | | | | | [place] [address] | | | | | | [phone] | | | | | | | | +--------+ + + + + | 11/20/ | Implant | Cardiology | Daljit Singletary, | Remote Device | | 2019 | Monitor | | MD [place] | Interrogation | | | | | [facility], | (Primary Dx); | | | | | [place] [address] | Presence of | | | | | [phone] | permanent cardiac | | | | [...] + +--------+ + + + | FL INJECTION FOR CT | Routin | 07/01/2018 | DDD (degenerative | Results for this | | MYELOGRAM | e | 9:55 AM | disc disease), | procedure are [...] + documented in this encounter Results FL Injection for CT Myelogram (07/01/2018 9:55 AM PDT) + + | Specimen | + + | | + + + + + | Narrative | Performed At | + + + | FLUOROSCOPICALLY GUIDED LUMBAR MYELOGRAM INJECTION:07/01/2018 9:53 AM | [facility] | | CLINICAL HISTORY:low back pain, hx fusion, frequent falls | | | PROCEDURE: The procedure of lumbar puncture for myelogram with | | | associated risks is discussed with the patient. Verbal and written | | | consent is then obtained to proceed. A timeout was performed | | | confirming the patient's identity and planned procedure. Fluoroscopy | | | was then utilized to identify an entry point to the thecal sac at | | | L3-L4. Skin is marked in this location and then prepped in sterile | | | fashion. Lidocaine 1% was then instilled and the skin and along the | | | proposed path of entry. Under direct fluoroscopic observation, a | | | 22-gauge spinal needle was then advanced atraumatically into the | | | thecal sac. Clear CSF was obtained. Sterile Omnipaque 240,10 cc was | | | then instilled, again under fluoroscopic observation. Needle was then | | | withdrawn and the procedure was terminated. Table was tilted to | | | distribute the contrast material. Patient was then taken to CT for | | | further imaging. IMPRESSION - Successful fluoroscopically guided | | | lumbar myelogram injection. Dictated and Signed by: Emmanuel Gibbons MD Electronically signed: 07/01/2018 3:21 PM | | + + + + + | Procedure Note | + + | Kevin, Kalpesh Results In - 07/01/2018 3:25 PM PDT FLUOROSCOPICALLY GUIDED LUMBAR | | MYELOGRAM INJECTION:07/01/2018 9:53 AMCLINICAL HISTORY:low back pain, hx fusion, frequent | | fallsPROCEDURE: The procedure of lumbar puncture for myelogram with associated risksis | | discussed with the patient. Verbal and written consent is then obtained toproceed. A | | timeout was performed confirming the patient's identity and plannedprocedure. | | Fluoroscopy was then utilized to identify an entry point to thethecal sac at L3-L4. Skin | | is marked in this location and then prepped in sterilefashion. Lidocaine 1% was then | | instilled and the skin and along the proposedpath of entry. Under direct fluoroscopic | | observation, a 22-gauge spinal needlewas then advanced atraumatically into the thecal | | sac. Clear CSF was obtained.Sterile Omnipaque 240,10 cc was then instilled, again under | | fluoroscopicobservation. Needle was then withdrawn and the procedure was terminated. | | Tablewas tilted to distribute the contrast material. Patient was then taken to CT | | forfurther imaging.IMPRESSION - Successful fluoroscopically guided lumbar myelogram | | injection.Dictated and Signed by: Emmanuel Gibbons MD Electronically signed: 07/01/2018 | | 3:21 PM | |further imaging. | | | |IMPRESSION - Successful fluoroscopically guided lumbar myelogram injection. | | | |Dictated and Signed by: Emmanuel Gibbons MD | | Electronically signed: 07/01/2018 3:21 PM | + + + +---------+ + [...] fall | + + documented in this encounter Administered Medications + +--------+ +--------+------+------+ | Medication Order | MAR | Action | Dose | Rate | Site | | | Action | Date | | | | + +--------+ +--------+------+------+ | iohexol (OMNIPAQUE 300) 300 | Given | 07/01/20 | 10 mLs | | | | mg/mL injection 10 mL 10 mL, | | 18 10:15 | | | | | INTRATHECAL, ONCE, 07/01/18 at | | AM PDT | | | | | 1015, For 1 dose, Radiology | | | | | | + +--------+ +--------+------+------+ +---+---+ | | | +---+---+ + +-------+ +--------+---+ + | lidocaine 1% injection 10 mL | Given | 07/01/20 | 10 mLs | | Other | | 10 mL, Intradermal, ONCE, Fri | | 18 10:15 | | | (Comment | | 07/01/18 at 1015, For 1 dose | | AM PDT | | | ) | + +-------+ +--------+---+ + +---+---+ | | | +---+---+ documented in this encounter"
--- OUTSIDE RECORDS SUMMARY | ~2019-10-04 | XMS | Encounter Summary ---
Demographics + + + | Address | [address] | | | [place] [address] | + + + | Home Phone [...] Team Providers + +------+ + | Care Crank Hand Name | Role | Phone | + +------+ + PCP | Unavailable | + +------+ + Encounter Details +--------+ + + + + | Date | Type | Department | Care Team | Description | +--------+ + + + + | 05/02/ | [facility] | [facility] | Jonathan, | | | 2009 | Encounter | MED CTR EMERGENCY | Martell Cr MD [address] | | | | | CENTER [address] | [place] | | | | | [place] | [place] [address] | | | | | [address] | [phone] | | | | | [phone] | | | +--------+ + + + [...] W | | | | | | [place], | | | | | | [place] [address] | | | | | | [phone] | | | | | | | | +--------+ + + + + | 11/20/ | Implant | Cardiology | Daljit Singletary, | Remote Device | | 2019 | Monitor | | MD [place]iquis [place]ro | Interrogation | | | | | [facility], | (Primary Dx); | | | | | [place] [address] | Presence of | | | | | [phone] | permanent cardiac | | | | [...]
--- OUTSIDE RECORDS SUMMARY | ~2019-10-04 | XMS | Encounter Summary ---
Demographics + + + | Address | [address] | | | [place] [address] | + + + | Home Phone [...] Providers + +------+ + | Care Industrial Engineering Technician Name | Role | Phone [...] + + | 02/21/ | Office | [facility] | [place], | Coronary artery | | 2019 | Visit | CARDIOLOGY [address] | [address] [place] [address] | disease involving | | | | [place], | [place], | ven[place]ie ir[place] coronary | | | | [place] [address] | [place] [address] | artery of venetie ira | | | | [phone] | [phone] | heart without angina | | | [...] of non-critical coronary artery d isease involving venetie ira coronary artery of ven[place] ir[place] heart without angina pectoris, essential h ypertension, [...] stay active. He enjoys hunting in his [place]. He has not had any [...] Preventative health care Coronary artery disease involving venetie ira coronary artery of venetie ira heart without angina pectoris Cannabis abuse, daily [...] 3RD DOSE, CALL 911 100 tablet 3 [place]-3 Fatty Acids (SALMON OIL-1000 PO) CAPS, one capsule by mouth daily twice daily ondansetron (ZOFRAN ODT) 4 mg disintegrating tablet Take 4 mg by mouth. ONE TOUCH DELICA LANCETS [facility] Check glucose as needed for hypoglycemia 100 [...] was found Confirmed by ANGELA MARADIAGA MD ([id number]) on 01/03/2019 8:10:39 PM LAB RESULTS reviewed during visit today primarily from [facility]: LIPID Lab Results Component Value Date [...] BNP 15 01/02/2019 I reviewed records from [facility] for angiogram results on 019 which is summarized in the HPI. RESULTS- I reviewed reports from [facility]: No results found. Left heart catheterization [...] ASSESSMENT: 1. Non-critical Coronary artery disease involving venetie ira coronary artery of venetie ira heart [facility] angina pectoris: A.Normal exercise sestamibi [...] Symptoms with moderate exertion of t he [place] 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 Heart failure stage [...] performed by Dr Juan Diego Gambino at [facility] on 01/30/2013.Patient had spontaneous PVC's fro m [...] of presyncope [facility] to have [facility]ovagal [facility]. B. [...] this chart may have been created with Teikon voice recognition software. Occasi onal wrong-word or [...] [place], | | | | | | [place] [id number] | | | | | | [phone] | | | | | | | | +--------+ + + + + | 11/20/ | Implant | Cardiology | Daljit Singletary, | Remote Device | | 2018 | Monitor | | MD [place] | Interrogation | | | | | [facility], | (Primary Dx); | | | | | [place] [id number] | Presence of | | | | | [phone] | permanent cardiac | | | | [...] + + | Coronary artery disease involving venetie ira coronary artery of venetie ira heart without | | angina pectoris - Primary | + + | Symptomatic PVCs Other premature beats | + + | Essential hypertension Unspecified essential hypertension | + + documented in this encounter
--- OUTSIDE RECORDS SUMMARY | ~2019-10-04 | XMS | Encounter Summary ---
Demographics + + + | Address | [address] [place] [address] | | | [place] [address] | + + + | Home Phone | | + + + | Preferred Language | Unknown | + + + | Marital Status | | + + + | Judaism Affiliation | Unknown | + + + [...] [place] | | | | | [address] | | + + + + + Care Team Providers + +------+ + | Care Paper Machine Back Tender Name | Role | Phone | [...] | | | | | TRANSTHORACI | [place], [place] | for Health | | | | | C | [address] | and Healing, | | | | | ECHOCARDIOGR | Phone: | [address] | | | | | AM, ADULT | [phone] | [place], [place] | | | | | | Fax: | [address] | | | | | | [phone] | Phone: | | | | | | | [phone] | +--------+--------+ + + + + Encounter Details +--------+ + + + + | Date | Type | Department | Care Team | Description | +--------+ + + + + | 02/03/ | Hospital | Cardiac | | | | 2010 | Encounter | Non-Invasive Testing | | | | | | at [facility] [address] | | | | | | [address] Mailcode: | | | | | | CH9A [facility] | | | | | | Health and Healing, | | | | | | [address] | | | | | | [place], [place] | | | | | | [address] | | | | | | [phone] | | | +--------+ + + + [...]
--- OUTSIDE RECORDS SUMMARY | ~2019-10-04 | XMS | Encounter Summary ---
Demographics + + + | Address | [address] | | | [place] [address] | + + + | Home Phone [...] Providers + +------+ + | Care Respiratory Therapy Aide Name | Role | Phone | [...] Refill | | 2013 | | MEDICINE [place] | DO [address] | | | | | [address] | [place] | | | | | [place] | [address] | | | | | [address] | | | | | | [phone] | | | +--------+--------+ + + + [...] W | | | | | | [place], | | | | | | [place] [address] | | | | | | [phone] | | | | | | | | +--------+ + + + + | 11/20/ | Implant | Cardiology | Daljit Singletary, | Remote Device | | 2018 | Monitor | | [address] [facility] | Interrogation | | | | | [place], | (Primary Dx); | | | | | [place] [address] | Presence of | | | | | [phone] | permanent cardiac | | | | [...]
--- OUTSIDE RECORDS SUMMARY | ~2019-10-04 | XMS | Encounter Summary ---
Demographics + + + | Address | [address] | | | [place] [address] | + + + | Home Phone [...] Providers + +------+ + | Care Director Quality Systems Name | Role | Phone | + +------+ + | Michael Amanda DO | PCP | | + +------+ + Reason for Visit +--------+ + | Reason | Comments | +--------+ + | Other | concerned about palpitations | +--------+ + Encounter Details +--------+ + + + + | Date | Type | Department | Care Team | Description | +--------+ + + + + | 02/16/ | Telephone | [facility] | [place], | Other (concerned | | 2012 | | CARDIOLOGY [address] | [address] | about palpitations) | | | | [place], | [place], | | | | | [place] [address] | [place] [address] | | | | | [phone] | [phone] | | | | | | | [...] W | | | | | | [place], | | | | | | [place] [address] | | | | | | [phone] | | | | | | | | +--------+ + + + + | 11/20/ | Implant | Cardiology | Daljit Singletary, | Remote Device | | 2018 | Monitor | | [facility] | Interrogation | | | | | [place], | (Primary Dx); | | | | | [place] [address] | Presence of | | | | | [phone] | permanent cardiac | | | | [...]
--- OUTSIDE RECORDS SUMMARY | ~2019-10-04 | XMS | Encounter Summary ---
Demographics + + + | Address | [address] | | | [place] [address] | + + + | Home Phone [...] Providers + +------+ + | Care Medical Device Sales Consultant Name | Role | Phone | + +------+ + PCP | Unavailable | + +------+ + Encounter Details +--------+ + + + + | Date | Type | Department | Care Team | Description | +--------+ + + + + | 06/13/ | [facility] | [facility] | Daljit Singletary, | | | 2008 | Encounter | MED CTR LABORATORY | [address] | | | | | [address] [place] | [address] [place], | | | | | [place] | [place] [address] | | | | | [address] | [phone] | | | | | [phone] | | | +--------+ + + + [...] W | | | | | | [place], | | | | | | [place] [address] | | | | | | [phone] | | | | | | | | +--------+ + + + + | 11/20/ | Implant | Cardiology | Daljit Singletary, | Remote Device | | 2019 | Monitor | | MD [place] | Interrogation | | | | | [facility] [place], | (Primary Dx); | | | | | [place] [address] | Presence of | | | | | [phone] | permanent cardiac | | | | [...]
--- OUTSIDE RECORDS SUMMARY | ~2019-10-04 | XMS | Encounter Summary ---
Demographics + + + | Address | [address] | | | [place] [address] | + + + | Home Phone [...] Team Providers + +------+ + | Care Dictating Transcribing Machine Servicer Name | Role | Phone | + +------+ + | Kirk French MD | PCP | | + +------+ + Encounter Details +--------+ + + + + | Date | Type | Department | Care Team | Description | +--------+ + + + + | 07/21/ | Hospital | [facility] | Daljit Singletary, | Palpitations; | | 2018 | Encounter | MED CTR NUCLEAR | MD [address] | Presence of | | | | MEDICINE [address] | [place], | permanent cardiac | | | | [place], | [place] [address] | pacemaker; | | | | [address] | [phone] | Sinoatrial node | | | | [phone] | | dysfunction (HCC) | +--------+ + [...] 1,000 mg by | | 0 | 20 | | | (VITAMIN C) 1000 MG [...] + + + +---------+ + + | [place]oll-3 Fatty | CAPS, one capsule by | [...] | 270 | 3 | 12/25/19 | 04/02/201 | | (CATAPRES) 0.2 MG | mouth [...] | | | | | | [place] [address] | | | | | | [phone] | | | | | | | | +--------+ + + + + | 11/20/ | Implant | Cardiology | SunshinecherelleDaljit, | Remote Device | | 2019 | Monitor | | [address] [facility] | Interrogation | | | | | [place], | (Primary Dx); | | | | | [place] [address] | Presence of | | | | | [phone] | permanent cardiac | | | | [...] 08/25/2018 13:12 Wireless even study from | [facility] | | 07/21 until 08/22/2018. Baseline EKG [...]
--- OUTSIDE RECORDS SUMMARY | ~2019-10-04 | XMS | Encounter Summary ---
Demographics + + + | Address | [address] | | | [place] [address] | + + + | Home Phone [...] Team Providers + +------+ + | Care Nascar Racer Name | Role | Phone | + [...] | MED CTR EXTERNAL | MD [address] | | | | | IMAGING | Jay [place] | | | | | [phone] | [place] [address] | | +--------+ + + + + [...] | | | | | | [place] [address] | | | | | | [phone] | | | | | | | | +--------+ + + + + | 11/20/ | Implant | Cardiology | Daljit Singletary, | Remote Device | | 2019 | Monitor | | [facility] | Interrogation | | | | | [facility], | (Primary Dx); | | | | | [place] [address] | Presence of | | | | | [phone] | permanent cardiac | | | | [...] for comparison only - no result from [facility]. | | + + + + +---------+ + + | Performing | Address | City/State/Zipcode | Phone Number | | Organization | | | | + +---------+ + + | [facility] | | | | + +---------+ + + documented in this encounter Visit Diagnoses Not on filedocumented in this encounter"
--- OUTSIDE RECORDS SUMMARY | ~2019-10-04 | XMS | Encounter Summary ---
Demographics + + + | Address | [address] | | | [place] [address] | + + + | Home Phone [...] Providers + +------+ + | Care Senior Grant Writer Name | Role | Phone | + +------+ + PCP | Unavailable | + +------+ + Encounter Details +--------+ + + + + | Date | Type | Department | Care Team | Description | +--------+ + + + + | 02/21/ | [facility] | [facility] | Geri Angel, | | | 2011 | Encounter | MED CTR XRAY [address] | SHIP PURSER [address] [place] | | | | | [place] | [address] [place] | | | | | [place] [address] | [address] | | | | | [phone] | | | +--------+ + + + [...] | | | | | | [place] [address] | | | | | | [phone] | | | | | | | | +--------+ + + + + | 11/20/ | Implant | Cardiology | Daljit Singletary, | Remote Device | | 2019 | Monitor | | MD [place] | Interrogation | | | | | [facility], | (Primary Dx); | | | | | [place] [address] | Presence of | | | | | [phone] | permanent cardiac | | | | [...]
--- OUTSIDE RECORDS SUMMARY | ~2019-10-04 | XMS | Encounter Summary ---
Demographics + + + | Address | [address] [place] [address] | | | [place] [address] | + + + | Home Phone | | + + + | Preferred Language | Unknown | + + + | Marital Status | | + + + | Denominational Affiliation | Unknown | + + + | Race | White | + + + | Ethnic Group | Not or | + + + Author + + + | Author | [facility] | + + + | Organization | [facility] | + + + | Address | Unknown | + + + | Phone | Unavailable | + + + Support + + + + + | Name | Relationship | Address | Phone | + + + + + | Rachel Valencia | [address] | [place] | | | | | [address] | | + + + + + Care Team Providers + +------+ + | Care Radio Intelligence Operator Name | Role | Phone | [...] Yao | | | | | at [facility] | [facility] | | | | | [address] | [place] [address] | | | | | [facility] | | | | | | Mailcode: [id number] Yao | | | | | | Leobardo Pedraza | | | | | | [facility] | | | | | | [place] [address] | | | | | | [phone] | | | +--------+ + + + [...] Tab by mouth | | 0 | / | | | (VITAMIN C ORAL) | [...] Tab by mouth | | 0 | /1520 | | | | once daily. | [...] + + + | Please click | [place] DEPT OF | | on view image for the detailed interpretation from [facility] results. | CARDIOLOGY | + + + + + + + + | Performing | Address | City/State/Zipcode | Phone Number | | Organization | | | | + + + + + | [facility] | [address] | [place], [place] | | | CARDIOLOGY | [address] | [address] | | + + + + + documented in this encounter Visit Diagnoses Not on filedocumented in this encounter"
--- OUTSIDE RECORDS SUMMARY | ~2019-10-04 | XMS | Clinical Summary ---
Demographics + + + | Address | [address] [place] [address] | | | [place] [address] | + + + | Home Phone [...] [place] | | | | | [address] | | + + + + + Care Team Providers + +------+ + | Care Professional Poker Player Name | Role | Phone | + +------+ + | Darion Holden DO | PCP | | + +------+ + Source Comments IVETTE is fully live on both EpicCare Ambulatory and EpicCare InPatient.[facility] Allergies + + + + + + [...] by mouth. 2 | | 0 | 01/20 | | Activ | | (OXYCONTIN) 20 [...] | oral tablet | | | | 920 | | e | | | | | | 18 | | | + + + +---------+------+------+-------+ | dicyclomine 20 mg | Take 20 mg by mouth. | | 0 | 02/0 | | Activ | | oral tablet | | | | 20 | | e | | | | | | 19 | | | + + + +---------+------+------+-------+ | diphenhydrAMINE 25 | Take 25 mg by mouth. | | 0 | 04/1 | | Activ | | mg oral capsule | | | | 820 | | e | | | | | | 12 | | | + + + +---------+------+------+-------+ | | Take by mouth. | | 0 | 01/1 | | Activ | | diphenoxylate-atropi | | | | 20 | | e | | ne 2.5-0.025 mg oral | | | | 19 | | | | tablet | | | | | | | + + + +---------+------+------+-------+ | | Take 1,000 mg by | | 0 | 03/0 | | Activ | | Methylsulfonylmethan | mouth. | | | 9/20 | | e | | e 1,000 mg oral | | | | 18 | | | | tablet | | | | | | | + + + +---------+------+------+-------+ | metoprolol | TAKE ONE TABLET BY | | 0 | 08/0 | | Activ | | succinate 100 mg | MOUTH EVERY DAY | | | 6/20 | | e | | oral tablet extended | | | | 18 | | | | release 24 hr | | | | | | | + + + +---------+------+------+-------+ | nitroglycerin | Take 0.4 mg by | | 0 | 11/2 | | Activ | | (NITROSTAT) 0.4 mg | mouth. | | | 2/20 | | e | | sublingual tablet, | | | | 16 | | | | sublingual | | | | | | | + + + +---------+------+------+-------+ | ondansetron 4 mg | Take 4 mg by mouth. | | 0 | 02/2 | | Activ | | oral tablet | | | | 620 | | e | | | | | | 19 | | | + + + +---------+------+------+-------+ | rOPINIRole 1 mg | Take by mouth. | | 0 | 07/0 | | Activ | | oral tablet | | | | 3/20 | | e | | | | | | 15 | | | + + + +---------+------+------+-------+ | sertraline 100 mg | Take 200 mg by | | 0 | 02/2 | 02/2 | Activ | | oral tablet | mouth. | | | 6/20 | 620 | e | | | | | | 19 | 20 | | + + + +---------+------+------+-------+ | valACYclovir 1 g | Take 1,000 mg by | | 0 | 01/0 | | Activ | | oral tablet | mouth. | | | 820 | | e | | | | [...] e | + + + +---------+------+------+-------+ | nortriptyline 25 | Take 1 capsule by | 60 | 2 | 11/0 | | Activ | | mg oral capsule | mouth once daily at | capsule | | 7/20 | | e | | | bedtime. Take one | | | 19 | | | | | tablet at bedtime x | | | | | | | | 2 weeks then | | | | | | | | increase to two | | | | | | | | tablets at bedtime | | | | | [...] | 10/04/ | Telephone | Gastroenterology | Bridgette Rios, | | | 2018 | | | MD | | +--------+ + + + + | 10/03/ | Telephone | Gastroenterology | Bridgette Rios, | Lab Order | | 2018 | | | MD | | +--------+ + + + + | 09/28/ | Office | Gastroenterology | Bridgette Rios, | | | 2018 | Visit | | MD | | +--------+ + + + + | 09/28/ | Travel | | | | | 2019 | | | | | +--------+ + [...] Pneumococcal | | | | | vaccination ( | 5 | | | | - PPSV23) | | | | + + + + + | Influenza (Flu) | | 07/23/2016, 06/24/2015, | | | vaccination (#1) | 9 | 09/10/2009, Additional history | | | | | exists [...] | | | | | | | [address] | | + +--------+ +--------+ + +--------+ | [employer] | [employer] | xxxxxxxxxx | 11/22/19 | [phone] | [address] | Indemn | | RETIRED PEOPLE | | | 10-Pre | 9 | [address] | ity | | | | | sent | | [place] | | | | | | | | [address] | | + +--------+ +--------+ + +--------+ + +--------+ +--------+ + + | Guarantor Name | Accoun | Relation to | Date | Phone | Billing Address | | | t Type | Patient | of | | | | | | | | | | + +--------+ +--------+ + + | Moe Sanchez W | Person | Self | [birth year] | [address] | | | cristo/Per | | 1960 | [id number] | [place] | | | roxanne | | | 8 (Home) | [address] | + +--------+ +--------+ + + Advance Directives + + + + + | Type | Date Recorded | Patient | Explanation | | | | Photograph Printer | | + + + + + | Advance | | | | | Directives and | | | | | Living Will | | | | + + + + + | Power of | | | | | Associate Professor Of Physics | | | | + + + + +
--- OUTSIDE RECORDS SUMMARY | ~2019-10-04 | XMS | Encounter Summary ---
Demographics + + + | Address | [address] | | | [place] [address] | + + + | Home Phone [...] Team Providers + +------+ + | Care Musical Engineer Name | Role | Phone | [...] | Refill | [facility] [place] | [place], | Medication Refill | | 2014 | | CARDIOLOGY [address] | [address] | | | | | [place], | [place], | | | | | [place] [address] | [place] [address] | | | | | [phone] | [phone] | | | | | | | [...] W | | | | | | [place], | | | | | | [place] [address] | | | | | | [phone] | | | | | | | | +--------+ + + + + | 11/20/ | Implant | Cardiology | Daljit Singletary, | Remote Device | | 2019 | Monitor | | [address] [facility] | Interrogation | | | | | [place], | (Primary Dx); | | | | | [place] [address] | Presence of | | | | | [phone] | permanent cardiac | | | | [...]
--- OUTSIDE RECORDS SUMMARY | ~2019-10-04 | XMS | Encounter Summary ---
Demographics + + + | Address | [address] | | | [place] [address] | + + + | Home Phone [...] Providers + +------+ + | Care Under Trimmer Name | Role | Phone | [...] Refill | | 2013 | | MEDIC[facility] | DO [address] | | | | | [address] | [place] | | | | | [place] | [address] | | | | | [address] | | | | | | [phone] | | | +--------+--------+ + + + [...] W | | | | | | [place], | | | | | | [place] [address] | | | | | | [phone] | | | | | | | | +--------+ + + + + | 11/20/ | Implant | Cardiology | Daljit Singletary, | Remote Device | | 2018 | Monitor | | [facility] | Interrogation | | | | | [place], | (Primary Dx); | | | | | [place] [address] | Presence of | | | | | [phone] | permanent cardiac | | | | [...]
--- OUTSIDE RECORDS SUMMARY | ~2019-10-04 | XMS | Encounter Summary ---
Demographics + + + | Address | [address] | | | [place] [address] | + + + | Home Phone [...] Team Providers + +------+ + | Care Sandwich And Drink Cart Operator Name | Role | Phone | + +------+ + PCP | Unavailable | + +------+ + Encounter Details +--------+ + + + + | Date | Type | Department | Care Team | Description | +--------+ + + + + | 01/14/ | Hospital | [facility] | Deburi, | [facility] | | 2004 | Encounter | [facility]ICAL [facility]ENTER | MD Tai [address] | | | | | CLINICAL DECISION | SUSAN MANZO | | | | | [address] | [place] [address] | | | | | [place], [place] | [phone] | | | | | [address] | | | | | | [phone] | | | +--------+ + + + [...] W | | | | | | [place], | | | | | | [place] [address] | | | | | | [phone] | | | | | | | | +--------+ + + + + | 11/20/ | Implant | Cardiology | Daljit Singletary, | Remote Device | | 2019 | Monitor | | MD [place]iquis [address]ro | Interrogation | | | | | [place], | (Primary Dx); | | | | | [place] [address] | Presence of | | | | | [phone] | permanent cardiac | | | | [...]
--- OUTSIDE RECORDS SUMMARY | ~2019-10-04 | XMS | Encounter Summary ---
Demographics + + + | Address | [address] | | | [place] [address] | + + + | Home Phone [...] Team Providers + +------+ + | Care Crusher Operator Name | Role | Phone | + +------+ + PCP | Unavailable | + +------+ + Encounter Details +--------+ + + + + | Date | Type | Department | Care Team | Description | +--------+ + + + + | 05/24/ | Hospital | [facility] | Chi Fang | Unspecified Chest | | 2008 - | Encounter | MEDICAL CENTER | MD Kelsey [address] | Pain | | | | CLINICAL DECISION | CHRISTOPH HERNANDEZ | | | 05/25/ | | [address] | [address] | | | 2008 | | [place], [place] | [phone] | | | | | [address] | | | | | | [phone] | | | +--------+ + + + [...] W | | | | | | [place], | | | | | | [place] [address] | | | | | | [phone] | | | | | | | | +--------+ + + + + | 11/20/ | Implant | Cardiology | Daljit Singletary, | Remote Device | | 2018 | Monitor | | [address] [place] | Interrogation | | | | | [place], | (Primary Dx); | | | | | [place] [address] | Presence of | | | | | [phone] | permanent cardiac | | | | [...] Performed At | + + + | [id number] | | | Page 1 RADIOLOGY | | | CDU 15909/ | | | [facility] | | | CENTER NAME: [place] [address] | | | | | | | | | DATE OF : 1960 ORDER NUMBER: | | | [id number] EXAM DATE/TIME: 05/25/2009 08:00 A ORDERING PHYSICIAN: | | | CHI FANG ORDER DETAIL: [id number] / / [facility] EXAM | | | DESCRIPTION: NM MYOCARDIAL [...] | | administration of 14.9 mCi of wnmbimciok-48q-vktxitz Myoview. Stress | | | images postinjection [...] | | | images. Prone images demonstrate confucianist of the inferior wall | | | [...] | | A P | | | [id number]/ cc: MD FEMI FOSS, | | | MD CHI FANG, MD AMY BANEGAS DO | | + + + + + | Procedure Note | + + | Kalpesh Brown Conversion - 07/17/2019 2:13 AM PDT | | [id number] Page 1 | | RADIOLOGY CDU 38092/ | | OPO | | [facility] NAME: PINA GAY | | [place] [address] | | | | DATE OF : 1960 | | | | ORDER NUMBER: [id number] | | EXAM DATE/TIME: 05/25/2009 08:00 A [...] administration of 14.9 mCi | | of lfbxaphkno-52n-lpupwaf Myoview. Stress images postinjection of 47.7 | [...] | | | | Prone images demonstrate confucianist of the inferior wall nicely. | | [...] | A | | P | | [id number]/[id number]/ | | cc: ANGELA MARADIAGA MD | | FEMI MARIE MD | | CHI FANG MD | | AMY BANEGAS DO | + + ECHO Complete (05/25/2009 7:50 AM PDT) + + | Specimen | + + | | + + + + + | Narrative | Performed At | + + + | [id number] | | | Page 1 ECHO [facility] NAME: | | | [place] [address] MEDICAL RECORD #: | | | [id number] | | | DATE OF : 1960 ORDER | | | NUMBER: [id number] EXAM DATE/TIME: 05/25/2009 07:34 PERFORMING | | [...] Excursion: | | | 1.89 cm E-F Galax: 0.08 m/s HR: 43.51 BPM AV maxP.11 [...] | | | 0.33 m/s TV Dec Galax: 1.73 m/s2 TV Dec Time: 344.24 ms TV | | | E Bravo: 0.59 m/s TV E/A Ratio: 1.80 TV maxP.40 mmHg TV | | | meanP.44 mmHg TV Vmax: 0.59 m/s TV Vmean: 0.30 m/s TV | | | VTI: 22.88 cm Evp General Counsel: ANTHONY Authenticated by: Edwardo Tee | | | Carlos WINKLER Report Date/Time: 05-25-2009 10:19:52 | | + + + + + | Procedure Note | + + | Kalpesh Brown Conversion - 07/17/2019 2:13 AM [facility] [id number] | | Page [address] [place] [address] NAME: [place] | | [address] : ACCOUNT #: | | [id number]: DATE OF : 1960ORDER NUMBER: | | [id number] DATE/TIME: 05/25/2009 07:34PERFORMING PHYSICIAN: Edwardo Gonzalez | [...] mlLAESV Index (A-L): 26.03 ml/m2LAAs A2C: 14.93 [id number] A-L | | A2C: 44.50 mlLALs A2C: 4.25 cmLAAs A4C: 18.42 jb0TGMIF A-L A4C: 55.79 mlLALs | | A4C: 5.16 cmAo Diam: 3.91 cmAV Cusp: 2.23 cmLA Diam: 3.79 cmLA/Ao: 0.96%FS: | | 43.37 %EDV(Teich): 146.19 mlEF(Teich): 73.99 %ESV(Teich): 38.01 mlIVSd: 1.57 | | cmIVSs: 1.79 cmLVIDd: 5.48 cmLVIDs: 3.10 cmLVPWd: 1.32 cmLVPWs: 1.79 | | cmSV(Teich): 108.18 mlD-E Excursion: 1.89 cmE-F Galax: 0.08 m/sHR: 43.51 BPMAV | | maxP.11 mmHgAV meanP.33 mmHgAV Vmax: 1.74 m/Zabrina Vmean: 1.06 m/Zabrina VTI: | | 35.51 cmAVA Vmax: 2.77 cm2AVA (VTI): 2.54 bs3BEMT Dopp: 3.00 l/lgkg9HLJG Dopp: | | 6.33 l/minHR: 70.25 BPMLVOT maxP.78 mmHgLVOT meanP.02 mmHgLVSI Dopp: | | 42.76 ml/m2LVSV Dopp: 90.23 mlLVOT Vmax: 1.30 m/sLVOT Vmean: 0.80 m/sLVOT VTI: | | 24.35 cmMV A Bravo: 0.70 m/sMV DecT: 242.46 msMV E Bravo: 0.91 m/sMV E/A Ratio: | | 1.31MV maxP.40 mmHgMV meanP.82 mmHgMV Vmax: 0.92 m/sMV Vmean: 0.37 m/sMV | | VTI: 26.47 cmMVA (VTI): 3.40 gb4Mevfmq e': 0.08 m/sSeptal E/e': 11.24HR: | | 60.55 BPMPV maxP.04 mmHgPV meanP.39 mmHgPV Vmax: 0.87 m/sPV Vmean: 0.55 | | m/sPV VTI: 19.09 cmRAP: 5 mmHgRVSP: 21.72 mmHgTR maxP.72 mmHgTR Vmax: | | 2.04 m/sTV A Bravo: 0.33 m/sTV Dec Galax: 1.73 m/s2TV Dec Time: 344.24 msTV E Bravo: | | 0.59 m/sTV E/A Ratio: 1.80TV maxP.40 mmHgTV meanP.44 mmHgTV Vmax: 0.59 | | m/sTV Vmean: 0.30 m/sTV VTI: 22.88 cm Evp General Counsel: KVWAuthenticated by: Edwardo Tee | | Carlos MDReport [...] | |D-E Excursion: 1.89 cm | |E-F Galax: 0.08 m/s | |HR: 43.51 BPM | [...] |TR Vmax: 2.04 m/s | |TV A Bravo: 0.33 m/s | |TV Dec Galax: 1.73 m/s2 | |TV Dec Time: 344.24 ms | |TV E Bravo: 0.59 m/s | |TV E/A Ratio: 1.80 | |TV maxP.40 mmHg | |TV meanP.44 mmHg | |TV Vmax: 0.59 m/s | |TV Vmean: 0.30 m/s | |TV VTI: 22.88 cm | | | |Evp General Counsel: KVW | |Authenticated by: Edwardo Gonzalez MD | |Report Date/Time: 05-25-2009 10:19:52 | + + CT Head wo Contrast (05/24/2009 12:58 PM PDT) + + | Specimen | + + | | + + + + + | Narrative | Performed At | + + + | [id number] | | | Page 1 RADIOLOGY | | | CDU 89171/ | | | [facility] | | | CENTER NAME: [place] [address] | | | | | | | | | DATE OF : 1960 ORDER NUMBER: | | | [id number] EXAM DATE/TIME: 05/24/2009 12:47 P ORDERING PHYSICIAN: [...] | | asymmetrically dense vessel about the [place] of [place]. No | | | hydrocephalus. [...] 08:45 P P P | | | [facility]/[id number]/ cc: MD ANGELA AVENDAÑO MD | | | MD AMY HAM DO | | + + + + + | Procedure Note | + + | Kalpesh Brown Conversion - 07/17/2019 2:13 AM PDT | | [id number] Page 1 | | RADIOLOGY CDU 89585/ | | OPO | | [facility] NAME: PINA GAY | | [place] [address] | | | | DATE OF : 1960 | | | | ORDER NUMBER: [id number] | | EXAM DATE/TIME: 05/24/2009 12:47 P [...] is no asymmetrically dense vessel about the [place] of [place]. No | | hydrocephalus. Some [...] | P | | P | | [facility]/tp/[id number]/ | | cc: VINAY HILL MD | | ANGELA MARADIAGA MD | | FEMI MARIE MD | | AMY BANEGAS, DO | + + XR Chest 2 Vws (05/24/2009 11:31 AM PDT) + + | Specimen | + + | | + + + + + | Narrative | Performed At | + + + | [id number] | | | Page 1 RADIOLOGY | | | [facility] [address]/ | | | [facility] | | | [place] [address] | | | | | | | | | DATE OF : 1960 ORDER NUMBER: | | | [id number] EXAM DATE/TIME: 05/24/2009 11:19 A ORDERING PHYSICIAN: [...] Adrian | | | MD FRANK 05/24/2009 08:45 P P DT: | | | 05/24/2009 05:38 P [id number]/[id number]/ cc: VINAY HILL MD | | | MD FEMI FOSS MD JOSEPH | | | P BASSAM DO | | + + + + + | Procedure Note | + + | Kalpesh Brown Conversion - 07/17/2019 2:13 AM PDT | | [id number] Page 1 | | RADIOLOGY CDU 98216/ | | OPO | | [facility] NAME: PINA GAY | | [place] [address] | | | | DATE OF : 1960 | | | | ORDER NUMBER: [id number] | | EXAM DATE/TIME: 05/24/2009 11:19 A [...] | P | | P | | [facility]//[id number]/ | | cc: VINAY HILL MD | | ANGELA MARADIAGA MD | | FEMI MARIE MD | | AMY BANEGAS DO | + + documented in this encounter Visit Diagnoses + + | Diagnosis | + + | Chest pain, unspecified | + + documented in this encounter"
--- OUTSIDE RECORDS SUMMARY | ~2019-10-04 | XMS | Encounter Summary ---
Demographics + + + | Address | [address] | | | [place] [address] | + + + | Home Phone [...] Providers + +------+ + | Care Certified Green Building Engineer Name | Role | Phone | [...] | | | | stenosis | L, HAND SURGEON [address] | | | | | | Procedures | [address] | | | | | | CT | [address] | | | | | | Myelography | [place], [place] | | | | | | Cervical | [address] | | | | | | Spine | Phone: | | | | | | | [phone] | | | | | | | Fax: | | | | | | | [phone] | | +--------+--------+ + + + + [...] + + | 06/04/ | Hospital | [facility] | [place], | Cervical spinal | | 2016 | Encounter | MED [facility] [address] | [place] Mason HAND SURGEON [address] | stenosis | | | | [place], | [address] | | | | | [place] [address] | [place] [address] | | | | | [phone] | [phone] | | | | | | | [...] + + + +---------+ + + | Nallen-3 Fatty | CAPS, one capsule by | [...] | | | | | | [place] [address] | | | | | | [phone] | | | | | | | | +--------+ + + + + | 11/20/ | Implant | Cardiology | Daljit Singletary, | Remote Device | | 2019 | Monitor | | [facility] | Interrogation | | | | | [place], | (Primary Dx); | | | | | [place] [address] | Presence of | | | | | [phone] | permanent cardiac | | | | [...] + | Performing | Address | City/[facility] | Phone Number | | Organization | | | | + +---------+ + + | [facility] | | | | + +---------+ + + documented in this encounter Visit Diagnoses + + | Diagnosis | + + | Cervical spinal stenosis Spinal stenosis in cervical region | + + documented in this encounter"
--- OUTSIDE RECORDS SUMMARY | ~2019-10-04 | XMS | Encounter Summary ---
Demographics + + + | Address | [address] | | | [place] [address] | + + + | Home Phone [...] Team Providers + +------+ + | Care Conditioning Coach Name | Role | Phone | [...] 2019 | | GASTROENTEROLOGY | [address] [place] | | | | | [address] [place] | [address] [place], [place] | | | | | [address] [place], [place] | [address] | | | | | [address] | | | | | | [phone] | | | +--------+ + + + [...] W | | | | | | [place], | | | | | | [place] [address] | | | | | | [phone] | | | | | | | | +--------+ + + + + | 11/20/ | Implant | Cardiology | Daljit Singletary, | Remote Device | | 2019 | Monitor | | [address] | Interrogation | | | | | [place], | (Primary Dx); | | | | | [place] [address] | Presence of | | | | | [phone] | permanent cardiac | | | | [...]
--- OUTSIDE RECORDS SUMMARY | ~2019-10-04 | XMS | Encounter Summary ---
Demographics + + + | Address | [address] | | | [place] [address] | + + + | Home Phone [...] Providers + +------+ + | Care Car Unloader Name | Role | Phone | + [...] | 01/04/ | Telephone | [facility] [place] | Emmanuel Daniel MD | Other | | 2019 | | GASTROENTEROLOGY | [address], [place] | | | | | [address] [place] | [address] [place], [place] | | | | | [address] [place], [place] | [address] | | | | | [address] | | | | | | [phone] | | | +--------+ + + + [...] | | | | | | [place] [address] | | | | | | [phone] | | | | | | | | +--------+ + + + + | 11/20/ | Implant | Cardiology | Daljit Singletary, | Remote Device | | 2018 | Monitor | | MD [place] | Interrogation | | | | | [place], | (Primary Dx); | | | | | [place] [address] | Presence of | | | | | [phone] | permanent cardiac | | | | [...]
--- OUTSIDE RECORDS SUMMARY | ~2019-10-04 | XMS | Encounter Summary ---
Demographics + + + | Address | [address] | | | [place] [address] | + + + | Home Phone [...] Team Providers + +------+ + | Care Jalousies Installer Name | Role | Phone | [...] | 04/10/ | Telephone | [facility] [place] | Matthew Uriarte | Other | | 2019 | | [address] | MD Tawanna [address] | | | | | [place], [place] | [place], [place] | | | | | [address] | [address] | | | | | [phone] | | | +--------+ + + + [...] | | | | | | [place] [address] | | | | | | [phone] | | | | | | | | +--------+ + + + + | 11/20/ | Implant | Cardiology | Daljit Singletary, | Remote Device | | 2018 | Monitor | | MD [place]iquis [place]ro | Interrogation | | | | | [place], | (Primary Dx); | | | | | [place] [address] | Presence of | | | | | [phone] | permanent cardiac | | | | [...]
--- OUTSIDE RECORDS SUMMARY | ~2019-10-04 | XMS | Encounter Summary ---
Demographics + + + | Address | [address] | | | [place] [address] | + + + | Home Phone [...] Team Providers + +------+ + | Care Identity Management Developer Name | Role | Phone | [...] | SLEEP DISORDER [address] | [address] | Dx) | | | | [address] [place] | [place] | | | | | [place] [address] | [address] | | | | | [phone] | | | +--------+---------+ + + + [...] pillows obtained from: [facility] [place] pressure is: 13 cm CPAP download shows [...] to go to [facility] in [place] to have them download his memory card. I will readjust his pressure, if necessary. I will call him with the results. He is to work toward wearing his CPAP 100% of the time he is asleep. I will follow up again in 1 month, sooner prn. Fifteen minutes were spent [id number], wi th the majority of time spent [...] W | | | | | | [place], | | | | | | [place] [address] | | | | | | [phone] | | | | | | | | +--------+ + + + + | 11/20/ | Implant | Cardiology | Daljit Singletary, | Remote Device | | 2018 | Monitor | | [address] [facility] | Interrogation | | | | | [place], | (Primary Dx); | | | | | [place] [address] | Presence of | | | | | [phone] | permanent cardiac | | | | [...]
--- OUTSIDE RECORDS SUMMARY | ~2019-10-04 | XMS | Encounter Summary ---
Demographics + + + | Address | [address] | | | [place] [address] | + + + | Home Phone [...] Team Providers + +------+ + | Care Toolroom Attendant Name | Role | Phone | [...] [address] | | | | | | [place], [place] | (Fax) | | | | | [address] | | | | | | [phone] | | | +--------+ + + + [...] | | | | | | [place] [address] | | | | | | [phone] | | | | | | | | +--------+ + + + + | 11/20/ | Implant | Cardiology | Daljit Singletary, | Remote Device | | 2018 | Monitor | | [address] [facility] | Interrogation | | | | | [place], | (Primary Dx); | | | | | [place] [address] | Presence of | | | | | [phone] | permanent cardiac | | | | [...]
--- OUTSIDE RECORDS SUMMARY | ~2019-10-04 | XMS | Encounter Summary ---
Demographics + + + | Address | [address] | | | [place] [address] | + + + | Home Phone [...] Team Providers + +------+ + | Care Environmental Protection Specialist Name | Role | Phone | [...] + + | 02/01/ | Telephone | [facility] | Silvia, | Other (unable to | | 2013 | | CARDIOLOGY [address] | [address] [place] [address] | take the isosorbide) | | | | [place] [place], | [place], | | | | | [place] [address] | [place] [address] | | | | | [phone] | [phone] | | | | | | | [...] W | | | | | | [place], | | | | | | [place] [address] | | | | | | [phone] | | | | | | | | +--------+ + + + + | 11/20/ | Implant | Cardiology | Daljit Singletary, | Remote Device | | 2018 | Monitor | | [address] | Interrogation | | | | | [place], | (Primary Dx); | | | | | [place] [address] | Presence of | | | | | [phone] | permanent cardiac | | | | [...] of unspecified type of | | vessel, shishmaref ira or graft | + + | Hypertension Unspecified essential hypertension | + + | Hyperlipidemia Other and unspecified hyperlipidemia | + + documented in this encounter"
--- OUTSIDE RECORDS SUMMARY | ~2019-10-04 | XMS | Encounter Summary ---
Demographics + + + | Address | [address] | | | [place] [address] | + + + | Home Phone [...] Providers + +------+ + | Care Hand Ironer Name | Role | Phone | + [...] 2018 | | GASTROENTEROLOGY | [address], [place] | about prep for | | | | [address] [place] | [address] [place], [place] | procedure) | | | | [address] [place], [place] | [address] | | | | | [address] | | | | | | [phone] | | | +--------+ + + + [...] | | | | | | [place] [address] | | | | | | [phone] | | | | | | | | +--------+ + + + + | 11/20/ | Implant | Cardiology | Daljit Singletary, | Remote Device | | 2019 | Monitor | | MD [facility] [place] | Interrogation | | | | | [facility] [place], | (Primary Dx); | | | | | [place] [address] | Presence of | | | | | [phone] | permanent cardiac | | | | [...]
--- OUTSIDE RECORDS SUMMARY | ~2019-10-04 | XMS | Encounter Summary ---
Demographics + + + | Address | [address] | | | [place] [address] | + + + | Home Phone [...] Team Providers + +------+ + | Care Registrar Museum Name | Role | Phone | + [...] W | | | | | [place], | [place], | | | | | [place] [address] | [place] [address] | | | | | [phone] | [phone] | | | | | | | [...] | | | | | | [place] [address] | | | | | | [phone] | | | | | | | | +--------+ + + + + | 11/20/ | Implant | Cardiology | Daljit Singletary, | Remote Device | | 2018 | Monitor | | [address] | Interrogation | | | | | [place], | (Primary Dx); | | | | | [place] [address] | Presence of | | | | | [phone] | permanent cardiac | | | | [...]
--- OUTSIDE RECORDS SUMMARY | ~2019-10-04 | XMS | Encounter Summary ---
Demographics + + + | Address | [address] | | | [place] [address] | + + + | Home Phone [...] Providers + +------+ + | Care Package Lift Operator Name | Role | Phone | + +------+ + | Michael Amanda DO | PCP | | + +------+ + Encounter Details +--------+ + + + + | Date | Type | Department | Care Team | Description | +--------+ + + + + | 06/26/ | Hospital | [facility] | Michael Amanda, | Diplopia | | 2012 | Encounter | MED CTR LABORATORY | DO [address] | | | | | [address] [place] | [place], [place] | | | | | [place], [place] | [address] | | | | | [address] | | | | | | [phone] | | | +--------+ + + + [...] + + + +---------+ + + | Conger-3 Fatty | CAPS, one capsule by | [...] W | | | | | | [place], | | | | | | [place] [address] | | | | | | [phone] | | | | | | | | +--------+ + + + + | 11/20/ | Implant | Cardiology | Daljit Singletary, | Remote Device | | 2018 | Monitor | | [facility] | Interrogation | | | | | [place], | (Primary Dx); | | | | | [place] [address] | Presence of | | | | | [phone] | permanent cardiac | | | | [...] + | [facility] | [address] | [place], [place] | [phone] | | [facility] | | [address] | | | - LABORATORY | | | | + + + + + | [facility] | [address] | [place], [place] | | | [facility] | | [address] | | | - LABORATORY | | [...] performed on the Javid | uIU/mL | [facility] | | | | [facility] | [...] [address] | [place] | [phone] | | [facility] | | [address] | | | - LABORATORY | | | | + + + + + | [facility] | [address] | [place] | | | [facility] | | [address] | | | - LABORATORY | | [...] + | [facility] | [address] | [place] | [phone] | | [facility] | | [address] | | | - LABORATORY | | | | + + + + + | [facility] | [address] | [place], [place] | | | [facility] | | [address] | | | - LABORATORY | | [...] + | [facility] | [address] | [place] | [phone] | | [facility] | | [address] | | | - LABORATORY | | | | + + + + + | [facility] | [address] | [place], [place] | | | [facility] | | [address] | | | - LABORATORY | | [...] + | [facility] | [address] | [place] | [phone] | | [facility] | | [address] | | | - LABORATORY | | | | + + + + + | [facility] | [address] | [place] | | | [facility] | | [address] | | | - LABORATORY | | [...] performed on the Javid | uIU/mL | [facility] | | | | [place] [facility] | | MEDICAL | | | [...] + | [facility] | [address] | [place] | [phone] | | [facility] | | [address] | | | - LABORATORY | | | | + + + + + | [facility] | [address] | [place] | | | [facility] | | [address] | | | - LABORATORY | | | | + + + + + documented in this encounter Visit Diagnoses + + | Diagnosis | + + | Diplopia | + + documented in this encounter"
--- OUTSIDE RECORDS SUMMARY | ~2019-10-04 | XMS | Encounter Summary ---
Demographics + + + | Address | [address] | | | [place] [address] | + + + | Home Phone [...] Team Providers + +------+ + | Care Finish Specialist Name | Role | Phone | [...] | Telephone | [facility] [place] | [place], | Other (not feeling | | 2013 | | [place] [address] | [place] [address] | kendall) | | | | [place], | [place], | | | | | [place] [address] | [place] [address] | | | | | [phone] | [phone] | | | | | | | [...] W | | | | | | [place], | | | | | | [place] [address] | | | | | | [phone] | | | | | | | | +--------+ + + + + | 11/20/ | Implant | Cardiology | Daljit Singletary, | Remote Device | | 2018 | Monitor | | [facility] | Interrogation | | | | | [place], | (Primary Dx); | | | | | [place] [address] | Presence of | | | | | [phone] | permanent cardiac | | | | [...]
--- OUTSIDE RECORDS SUMMARY | ~2019-10-04 | XMS | Encounter Summary ---
Demographics + + + | Address | [address] | | | [place] [address] | + + + | Home Phone [...] Team Providers + +------+ + | Care Refinery Operator Assistant Name | Role | Phone | [...] | | | | stenosis | L, FIRE HAZARD INSPECTOR [address] | | | | | | Procedures | [address] | | | | | | CT | [address] | | | | | | Myelography | [place], [place] | | | | | | Cervical | [address] | | | | | | Spine | Phone: | | | | | | | [phone] | | | | | | | Fax: | | | | | | | [phone] | | +--------+--------+ + + + + [...] + + | 06/04/ | Hospital | [facility] | Sariah, | Cervical spinal | | 2016 | Encounter | MED CTR [address] | [place] Mason FIRE HAZARD INSPECTOR [address] | stenosis | | | | [place], | [address] | | | | | [place] [address] | [place] [address] | | | | | [phone] | [phone] | | | | | | | [...] | | | | | | [place] [address] | | | | | | [phone] | | | | | | | | +--------+ + + + + | 11/20/ | Implant | Cardiology | Daljit Singletary, | Remote Device | | 2019 | Monitor | | [facility] | Interrogation | | | | | [place], | (Primary Dx); | | | | | [place] [address] | Presence of | | | | | [phone] | permanent cardiac | | | | [...] + + | Performing | Address | City/State/Rustcode | Phone Number | | Organization | | | | + +---------+ + + | [facility] | | | | + +---------+ + + documented in this encounter Visit Diagnoses + + | Diagnosis | + + | Cervical spinal stenosis Spinal stenosis in cervical region | + + documented in this encounter"
--- OUTSIDE RECORDS SUMMARY | ~2019-10-04 | XMS | Encounter Summary ---
Demographics + + + | Address | [address] | | | [place] [address] | + + + | Home Phone [...] Team Providers + +------+ + | Care Sand Conditioner Name | Role | Phone | + [...] [place], | | | | | | [place] [id number] | | | | | | [phone] | | | +--------+ + + + [...] | | | | | | [place] [id number] | | | | | | [phone] | | | | | | | | +--------+ + + + + | 11/20/ | Implant | Cardiology | Daljit Singletary, | Remote Device | | 2019 | Monitor | | [facility] | Interrogation | | | | | [place], | (Primary Dx); | | | | | [place] [address] | Presence of | | | | | [phone] | permanent cardiac | | | | [...]
--- OUTSIDE RECORDS SUMMARY | ~2019-10-04 | XMS | Encounter Summary ---
Demographics + + + | Address | [address] | | | [place] [address] | + + + | Home Phone [...] Team Providers + +------+ + | Care Surgeon Assistant Name | Role | Phone | [...] + + | 08/19/ | Telephone | [facility] | [place], | Other (patient | | 2016 | | CARDIOLOGY [address] | [place] [address] | having issues with | | | | [place], | [place], | high blood pressure) | | | | [place] [address] | [place] [address] | | | | | [phone] | [phone] | | | | | | | [...] W | | | | | | [place], | | | | | | [place] [address] | | | | | | [phone] | | | | | | | | +--------+ + + + + | 11/20/ | Implant | Cardiology | Daljit Singletary, | Remote Device | | 2019 | Monitor | | [address] | Interrogation | | | | | [place], | (Primary Dx); | | | | | [place] [address] | Presence of | | | | | [phone] | permanent cardiac | | | | [...]
--- OUTSIDE RECORDS SUMMARY | ~2019-10-04 | XMS | Encounter Summary ---
Demographics + + + | Address | [address] | | | [place] [address] | + + + | Home Phone [...] Team Providers + +------+ + | Care Personnel Recruiter Name | Role | Phone | [...] | 07/30/ | Telephone | [facility] [place] [facility] | Michael Amanda, | Results | | 2013 | | MEDICINE [place] | DO [address] | | | | | [address] | [place] | | | | | [place] | [address] | | | | | [address] | | | | | | [phone] | | | +--------+ + + + [...] | | | | | | [place] [address] | | | | | | [phone] | | | | | | | | +--------+ + + + + | 11/20/ | Implant | Cardiology | Daljit Singletary, | Remote Device | | 2018 | Monitor | | MD [address] | Interrogation | | | | | [place], | (Primary Dx); | | | | | [place] [address] | Presence of | | | | | [phone] | permanent cardiac | | | | [...]
--- OUTSIDE RECORDS SUMMARY | ~2019-10-04 | XMS | Encounter Summary ---
Demographics + + + | Address | [address] | | | [place] [address] | + + + | Home Phone [...] Team Providers + +------+ + | Care Biometrics Instructor Name | Role | Phone | + +------+ + | Darion Holden DO | PCP | | + +------+ + Encounter Details +--------+ + + + + | Date | Type | Department | Care Team | Description | +--------+ + + + + | 08/05/ | Hospital | [facility] | Emmanuel Daniel MD | | | 2009 | Encounter | MED CTR XRAY [address] | [address] | | | | | [place] | [address] [place], [place] | | | | | [place] [address] | [address] | | | | | [phone] | | | +--------+ + + + [...] W | | | | | | [place], | | | | | | [place] [address] | | | | | | [phone] | | | | | | | | +--------+ + + + + | 11/20/ | Implant | Cardiology | Daljit Singletary, | Remote Device | | 2018 | Monitor | | [address] | Interrogation | | | | | [place], | (Primary Dx); | | | | | [place] [address] | Presence of | | | | | [phone] | permanent cardiac | | | | [...]
--- OUTSIDE RECORDS SUMMARY | ~2019-10-04 | XMS | Encounter Summary ---
Demographics + + + | Address | [address] | | | [place] [address] | + + + | Home Phone [...] Team Providers + +------+ + | Care Instructional Material Director Name | Role | Phone | [...] + + | 02/15/ | Office | [facility] | Jay Cohn PA | DIDIER (obstructive | | 2012 | Visit | SLEEP DISORDER [address] | [address] | sleep apnea) | | | | [address] [place] | [place] | (Primary Dx) | | | | [place] [address] | [address] | | | | | [phone] | | | +--------+---------+ + + + [...] PDTGo to [facility] in [place] for replacement equipment including: Nasal pillows or [...] pillows obtained from: [facility] [place] pressure is: 13 cm CPAP download shows [...] to go to [facility] in [place] to replace his equipment, but it had [...] to go to [facility] in [place] to g et a new mask and filter. He is to work toward wearing his CPAP 100% of the time he is asle ep. I will follow up again in 1 month, sooner prn. Fifteen minutes were spent [id number], wi th the majority of time spent [...] W | | | | | | [place], | | | | | | [place] [address] | | | | | | [phone] | | | | | | | | +--------+ + + + + | 11/20/ | Implant | Cardiology | Daljit Singletary, | Remote Device | | 2019 | Monitor | | [address] [place] | Interrogation | | | | | [place], | (Primary Dx); | | | | | [place] [address] | Presence of | | | | | [phone] | permanent cardiac | | | | [...]
--- OUTSIDE RECORDS SUMMARY | ~2019-10-04 | XMS | Encounter Summary ---
Demographics + + + | Address | [address] | | | [place] [address] | + + + | Home Phone [...] Team Providers + +------+ + | Care Wharf Tender Head Name | Role | Phone | + +------+ + PCP | Unavailable | + +------+ + Encounter Details +--------+ + + + + | Date | Type | Department | Care Team | Description | +--------+ + + + + | 06/17/ | Hospital | [facility] | | | | 2008 | Encounter | MED CTR EMERGENCY | | | | | | [place] [address] | | | | | | [place] | | | | | | [address] | | | | | | [phone] | | | +--------+ + + + [...] | | | | | | [place] [address] | | | | | | [phone] | | | | | | | | +--------+ + + + + | 11/20/ | Implant | Cardiology | Daljit Singletary, | Remote Device | | 2018 | Monitor | | [facility] | Interrogation | | | | | [place], | (Primary Dx); | | | | | [place] [address] | Presence of | | | | | [phone] | permanent cardiac | | | | [...]
--- OUTSIDE RECORDS SUMMARY | ~2019-10-04 | XMS | Encounter Summary ---
Demographics + + + | Address | [address] | | | [place] [address] | + + + | Home Phone [...] Team Providers + +------+ + | Care Proposal Development Manager Name | Role | Phone [...] [address] | | | | | [place], [place] | [place], [place] | | | | | [address] | [address] | | | | | [phone] | | | +--------+ + + + [...] | | | | | | [place] [address] | | | | | | [phone] | | | | | | | | +--------+ + + + + | 11/20/ | Implant | Cardiology | Daljit Singletary, | Remote Device | | 2018 | Monitor | | MD [address] | Interrogation | | | | | [place], | (Primary Dx); | | | | | [place] [address] | Presence of | | | | | [phone] | permanent cardiac | | | | [...]
--- OUTSIDE RECORDS SUMMARY | ~2019-10-04 | XMS | Encounter Summary ---
Demographics + + + | Address | [address] [place] [address] | | | [place] [address] | + + + | Home Phone [...] [place] | | | | | [address] | | + + + + + Care Team Providers + +------+ + | Care Avionics Manager Name | Role | Phone | [...] | [facility] [address] | MD [address] | | | | | [address] | [facility] [place] | | | | | Mailcode: Center | [address] | | | | | for Health and | [phone] | | | | | [facility] [address] | | | | | | [place], [place] | | | | | | [address] | | | | | | [phone] | | | +--------+ + + + [...]
--- OUTSIDE RECORDS SUMMARY | ~2019-10-04 | XMS | Encounter Summary ---
Demographics + + + | Address | [address] | | | [place] [address] | + + + | Home Phone [...] Team Providers + +------+ + | Care Technician Support Association Name | Role | Phone | + +------+ + | Michael Amanda DO | PCP | | + +------+ + Encounter Details +--------+ + + + + | Date | Type | Department | Care Team | Description | +--------+ + + + + | 07/25/ | Abstract | [facility] [place] [facility] | Michael Amanda, | | | 2013 | | [facility] | DO [address] | | | | | [address] | [place] | | | | | [place] | [address] | | | | | [address] | | | | | | [phone] | | | +--------+ + + + [...] | | | | | | [place] [address] | | | | | | [phone] | | | | | | | | +--------+ + + + + | 11/20/ | Implant | Cardiology | Daljit Singletary, | Remote Device | | 2018 | Monitor | | [facility] | Interrogation | | | | | [place], | (Primary Dx); | | | | | [place] [address] | Presence of | | | | | [phone] | permanent cardiac | | | | [...]
--- OUTSIDE RECORDS SUMMARY | ~2019-10-04 | XMS | Encounter Summary ---
Demographics + + + | Address | [address] | | | [place] [address] | + + + | Home Phone [...] Providers + +------+ + | Care Broadcast Chief Engineer Name | Role | Phone | [...] + + | 04/24/ | Office | [facility] | [place], | Symptomatic PVCs | | 2012 | Visit | CARDIOLOGY [address] | [place] [address] | (Primary Dx); CAD; | | | | [place], | [place], | Hyperlipidemia; | | | | [place] [address] | [place] [address] | PACEMAKER, PERMANENT | | | | [phone] | [phone] | - [employer] | | | | [...] tablet by mouth Daily. 30 tablet 6 [place]-3 Fatty Acids (SALMON OIL-1000 PO) CAPS, one [...] Reviewed records from PCP and notes from [facility]. Assessment: 1. Symptomatic PVCs status post [...] to go back in 3 days to Telephone for an attempt of ablation under general [...] He is upgraded to class I of [place] 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 There are no [...] made to ensure accuracy; however, inadvertent computerized monument mason errors may be pre sent. documented in this encounter Plan of Treatment +--------+ + + + + | Date | Type | Specialty | Care Team | Description | +--------+ + + + + | 11/09/ | Office | Cardiology | [place], | | | 2018 | Visit | | [address] | | | | | | [place], | | | | | | [place] [address] | | | | | | [phone] | | | | | | | | +--------+ + + + + | 11/20/ | Implant | Cardiology | Daljit Singletary, | Remote Device | | 2018 | Monitor | | MD [facility] | Interrogation | | | | | [place], | (Primary Dx); | | | | | [place] [address] | Presence of | | | | | [phone] | permanent cardiac | | | | [...] Coronary atherosclerosis of unspecified type of vessel, habematolel or graft | + + | Hyperlipidemia Other and unspecified hyperlipidemia | + + | PACEMAKER, PERMANENT - [employer] 06/14/09GRANT Cardiac pacemaker in situ | + + documented in this encounter
--- OUTSIDE RECORDS SUMMARY | ~2019-10-04 | XMS | Encounter Summary ---
Demographics + + + | Address | [address] | | | [place] [address] | + + + | Home Phone [...] Team Providers + +------+ + | Care Rig Supervisor Name | Role | Phone | + +------+ + | Kirk French MD | PCP | | + +------+ + Encounter Details +--------+ + + + + | Date | Type | Department | Care Team | Description | +--------+ + + + + | 03/15/ | Hospital | [facility] | Conversion | | | 2017 | Encounter | [facility] | Transaction, | | | | | [address] | Provider Unknown | | | | | [address] [place] | [phone] | | | | | [address] | | | | | | [phone] | Kirk French | | | | | | [place] [address] | | | | | | [address], | | | | | | [place] [address] | | | | | | [phone] | | | | | | | [...] + + +---------+ + + | [place]-3 Fatty | CAPS, one capsule by | [...] | | | | | | [place] [address] | | | | | | [phone] | | | | | | | | +--------+ + + + + | 11/20/ | Implant | Cardiology | Daljit Singletary, | Remote Device | | 2019 | Monitor | | [facility] | Interrogation | | | | | [place] [place], | (Primary Dx); | | | | | [place] [address] | Presence of | | | | | [phone] | permanent cardiac | | | | [...]
--- OUTSIDE RECORDS SUMMARY | ~2019-10-04 | XMS | Encounter Summary ---
Demographics + + + | Address | [address] | | | [place] [address] | + + + | Home Phone [...] Team Providers + +------+ + | Care Hot Room Attendant Name | Role | Phone | + +------+ + | Kirk French MD | PCP | | + +------+ + Encounter Details +--------+ + + + + | Date | Type | Department | Care Team | Description | +--------+ + + + + | 08/10/ | Orders Only | [facility] | [place], | Mixed hyperlipidemia | | 2016 | | MED CTR LABORATORY | [place] [address] | (Primary Dx) | | | | [address] [place] | [place], | | | | | [place] | [place] [address] | | | | | [address] | [phone] | | | | | [phone] | | | +--------+ + + + [...] W | | | | | | [place], | | | | | | [place] [address] | | | | | | [phone] | | | | | | | | +--------+ + + + + | 11/20/ | Implant | Cardiology | Daljit Singletary, | Remote Device | | 2018 | Monitor | | [place] [facility] | Interrogation | | | | | [place], | (Primary Dx); | | | | | [place] [address] | Presence of | | | | | [phone] | permanent cardiac | | | | | | pacemaker; | | | | | | Sinoatrial node | | | | | | dysfunction ([facility]) | | | | | | [...]
--- OUTSIDE RECORDS SUMMARY | ~2019-10-04 | XMS | Encounter Summary ---
Demographics + + + | Address | [address] | | | [place] [address] | + + + | Home Phone [...] Providers + +------+ + | Care Lead Project Manager Name | Role | Phone | [...] W | reprogramming/check | | | | [place], | [address] [place] | DO [place] DELETE | | | | [place] [address] | [place] [address] | (Primary Dx); | | | | [phone] | [phone] | Pacemaker - | | | | [...] | | | | | | [place] [address] | | | | | | [phone] | | | | | | | | +--------+ + + + + | 11/20/ | Implant | Cardiology | Daljit Singletary, | Remote Device | | 2018 | Monitor | | [address] | Interrogation | | | | | [place], | (Primary Dx); | | | | | [place] [address] | Presence of | | | | | [phone] | permanent cardiac | | | | [...]
--- OUTSIDE RECORDS SUMMARY | ~2019-10-04 | XMS | Encounter Summary ---
Demographics + + + | Address | [address] | | | [place] [address] | + + + | Home Phone [...] Team Providers + +------+ + | Care Sales/Marketing Name | Role | Phone | + [...] + | 01/30/ | Telephone | [facility] | Daljit Singletary, | Other | | 2019 | | CARDIOLOGY [address] | MD [address] [place] | | | | | [place], | [place], | | | | | [place] [address] | [place] [address] | | | | | [phone] | [phone] | | | | | | | [...] | | | | | | [place] [address] | | | | | | [phone] | | | | | | | | +--------+ + + + + | 11/20/ | Implant | Cardiology | Daljit Singletary, | Remote Device | | 2018 | Monitor | | MD [address] [place] | Interrogation | | | | | [place], | (Primary Dx); | | | | | [place] [address] | Presence of | | | | | [phone] | permanent cardiac | | | | [...] 05/02/2019, Expires: | | | | | cheesh-na coronary | 01/30/2020 | | | | [...] 05/02/2019, Expires: | | | | | cheesh-na coronary | 01/31/2020 | | | | [...] cheesh-na heart without | | angina pectoris - Primary | + + | Hyperlipidemia, mixed Mixed hyperlipidemia | + + documented in this encounter"
--- OUTSIDE RECORDS SUMMARY | ~2019-10-04 | XMS | Encounter Summary ---
Demographics + + + | Address | [address] | | | [place] [address] | + + + | Home Phone [...] Providers + +------+ + | Care Computer Assembler Name | Role | Phone | [...] | | | Left | | Matthew Satcy | | | | | ureteral | | MD Nicole LEONARDO | | | | | calculus | | [place] | | | | | Procedures | | [place], [place] | | | | | [place] | | [address] Phone: | | | | | CYSTO/URETER | | [phone] | | | | | O | | Fax: | | | | | W/LITHOTRIPS | | [phone] | | | | | Y &INDWELL [...] + + | 04/13/ | Surgery | [facility] [place] | Matthew Uriarte | Cystoscopy, Left | | 2018 | | MED CTR OR INTRA OP | Dahl, MD [address] | ureteroscopy with | | | | [address] | [place] | laser lithotripsy, | | | | [place], [place] | [address] | Left ureteral stent | | | | [address] | | placement | | | | [phone] | | | +--------+---------+ + + + [...] Care Everywhere.Kidney Stones, Treating: Ureteroscopic Stone Removal (Armenian)Stents, Ureteral (Armenian)documented in this encounter Medications at Time of [...] + + + +---------+ + + | Eldena-3 Fatty | CAPS, one capsule by | [...] | | | | | | | chitimacha coronary | | | | | | | artery of [place] | | | | | | | [...] | | | | | | [place] [address] | | | | | | [phone] | | | | | | | | +--------+ + + + + | 11/20/ | Implant | Cardiology | Daljit Singletary, | Remote Device | | 2018 | Monitor | | [address] [facility] [place] | Interrogation | | | | | [place], | (Primary Dx); | | | | | [place] [address] | Presence of | | | | | [phone] | permanent cardiac | | | | [...] [facility] | | | | | | at:[phone]. | | | | + + + [...] | | | | | d by [facility]. It has not | | | | [...] + + | Performed at: 01 - [facility] [address], | REFERENCE LAB | | [place], [place] [id number] Miter Grinder Operator: Yeny Rios MD, Phone: | ARSH CASTANON | | [phone] | | + + + + + + + + | Performing | Address | City/State/Zipcode | Phone Number | | Organization | | | | + + + + + | REFERENCE LAB | [address] | [place] [address] | [phone] | | [facility] | [address] [...] [address] | [place] | [phone] | | [facility] | | [address] | | | - LABORATORY | | [...] ST. | [address] | [place], [place] | [phone] | | [facility] | | [address] | | | - LABORATORY | | [...] [address] | [place] | [phone] | | [facility] | | [address] | | | - LABORATORY | | [...] + | [address] | [address] | [place] | [phone] | | [facility] | | [address] | | | - LABORATORY | | [...] | 0.92 | 0.70 - 1.30 | [facility] | | | | | mg/dL | [facility] | | | | | | MEDICAL | | | | | | CENTER - | | | | | | LABORATORY | | + + + + + + | eGFR if not | >60Comment: GLOMERULAR | >=60 | [facility] | | | | FILTRATION | mL/min/1.73m2 | [facility] | | | DANISH | RATE,ESTIMATED | | MEDICAL | | | | mL/min/1.03i7Ilbm than | | CENTER - | | [...] + + | [facility]. | [address] | [place] | [phone] | | [facility] | | [address] | | | - LABORATORY | | [...] day), First | | | dose on [facility] 04/13/19 at 1400, | | | Start 8 hours after pre-op dose., | | | Post-op/Phase II | | + +---+ | | | + +---+ | albuterol 2.5 mg/3 mL nebulizer | | | solution 2.5 mg 2.5 mg, | | | Nebulization, ONCE PRN, Wheezing, | | | Starting [facility] 04/13/19 at 0917, | | | [...] HR < 40, | | | Starting [facility] 04/13/19 at 0917, For | | | 2 doses, May repeat one time | | | after 1 min., Recovery/Phase I | | + +---+ | | | + +---+ + +-------+ +--------+---+---+ | ciprofloxacin (CIPRO) tablet | Given | 04/13/20 | 500 mg | | | | 500 mg 500 mg, Oral, ONCE, [facility] | | 19 7:35 | | | [...] glucose < 50, | | | Starting [facility] 04/13/19 at 0634, | | | [...] | | | | | | | [id number] use of at least | | | [...]
--- OUTSIDE RECORDS SUMMARY | ~2019-10-04 | XMS | Encounter Summary ---
Demographics + + + | Address | [address] | | | [place] [address] | + + + | Home Phone [...] Team Providers + +------+ + | Care Woolen Tester Name | Role | Phone | + +------+ + | Michael Amanda DO | PCP | | + +------+ + Encounter Details +--------+ + + + + | Date | Type | Department | Care Team | Description | +--------+ + + + + | 12/19/ | Abstract | [facility] [place] | Daljit Singlteary, | Chest pain (Primary | | 2013 | | CARDIOLOGY [address] | MD [address] | Dx); SINUS | | | | [address], | [place], | [place] | | | | [place] [address] | [place] [address] | | | | | [phone] | [phone] | | | | | | | [...] | | | | | | [place] [address] | | | | | | [phone] | | | | | | | | +--------+ + + + + | 11/20/ | Implant | Cardiology | Daljit Singletary, | Remote Device | | 2019 | Monitor | | [address] [facility] | Interrogation | | | | | [place], | (Primary Dx); | | | | | [place] [address] | Presence of | | | | | [phone] | permanent cardiac | | | | [...]
--- OUTSIDE RECORDS SUMMARY | ~2019-10-04 | XMS | Encounter Summary ---
Demographics + + + | Address | [address] | | | [place] [address] | + + + | Home Phone [...] Team Providers + +------+ + | Care Compounding Assistant Name | Role | Phone | [...] | 10/09/ | Telephone | [facility] [place] [facility] | Michael Amanda, | Other | | 2012 | | MEDICINE [place] | DO [address] | | | | | [address] | [place] | | | | | [place] | [address] | | | | | [address] | | | | | | [phone] | | | +--------+ + + + [...] W | | | | | | [place], | | | | | | [place] [address] | | | | | | [phone] | | | | | | | | +--------+ + + + + | 11/20/ | Implant | Cardiology | Daljit Singletary, | Remote Device | | 2018 | Monitor | | MD [address] | Interrogation | | | | | [place], | (Primary Dx); | | | | | [place] [address] | Presence of | | | | | [phone] | permanent cardiac | | | | [...]
--- OUTSIDE RECORDS SUMMARY | ~2019-10-04 | XMS | Encounter Summary ---
Demographics + + + | Address | [address] | | | [place] [address] | + + + | Home Phone [...] Team Providers + +------+ + | Care Grinder And Honer Operator Automatic Name | Role | Phone | + [...] 2019 | | GASTROENTEROLOGY | [address], [place] | | | | | [address] [place] | [address] [place], [place] | | | | | [address] [place], [place] | [address] | | | | | [address] | | | | | | [phone] | | | +--------+ + + + [...] | | | | | | [place] [address] | | | | | | [phone] | | | | | | | | +--------+ + + + + | 11/20/ | Implant | Cardiology | Daljit Singletary, | Remote Device | | 2018 | Monitor | | MD [address] | Interrogation | | | | | [place], | (Primary Dx); | | | | | [place] [address] | Presence of | | | | | [phone] | permanent cardiac | | | | [...]
--- OUTSIDE RECORDS SUMMARY | ~2019-10-04 | XMS | Encounter Summary ---
Demographics + + + | Address | [address] | | | [place] [address] | + + + | Home Phone [...] Team Providers + +------+ + | Care Colorist Dyer Name | Role | Phone | + +------+ + PCP | Unavailable | + +------+ + Encounter Details +--------+ + + + + | Date | Type | Department | Care Team | Description | +--------+ + + + + | 05/13/ | [facility] | [facility] | Dom Graham, | | | 2010 | Encounter | MED CTR EMERGENCY | [address] | | | | | CENTER [address] | [place] | | | | | [place] | [address] | | | | | [address] | | | | | | [phone] | | | +--------+ + + + [...] W | | | | | | [place], | | | | | | [place] [address] | | | | | | [phone] | | | | | | | | +--------+ + + + + | 11/20/ | Implant | Cardiology | Daljit Singletary, | Remote Device | | 2019 | Monitor | | [facility] | Interrogation | | | | | [place], | (Primary Dx); | | | | | [place] [address] | Presence of | | | | | [phone] | permanent cardiac | | | | [...] | | | | | the [place] | | | | | | Access [...] ST. | [address] | [place], [place] | [phone] | | [facility] | | [address] | | | - LABORATORY | | | | + + + + + | [address] | [address] | [place], [place] | | | [facility] | | [address] | | | - LABORATORY | | [...] + | [facility] | [address] | [place] | [phone] | | [facility] | | [address] | | | - LABORATORY | | | | + + + + + | [facility] | [address] | [place], [place] | | | [facility] | | [address] | | | - LABORATORY | | [...] + | [facility] | [address] | [place], [place] | [phone] | | [facility] | | [address] | | | - LABORATORY | | | | + + + + + | [facility] | [address] | [place], [place] | | | [facility] | | [address] | | | - LABORATORY | | [...] + + | Performing | Address | City/State[facility] | Phone Number | | Organization | | | | + + + + + | [facility] | [address] | [place], [place] | [phone] | | [facility] | | [address] | | | - LABORATORY | | | | + + + + + | [facility] | [address] | [place], [place] | | | [facility] | | [address] | | | - LABORATORY | | | | + + + + + XR Chest AP Portable (05/13/2011 3:01 PM PDT) + + | Specimen | + + | | + + + + + | Narrative | Performed At | + + + | [facility] Diagnostic Imaging Department | [facility] | | [address] [facility] | [facility] | | PORTABLE CHEST CLINICAL | DIAG [...] Transcribed Date/Time: | | | 05/13/2011 17:06 Silk Opener: <Electronically Signed | | | by Jama Solis MD> 05/13/112038 | | + + + + + | Procedure Note | + + | Kevin, Rad Conversion - 12/29/2013 3:12 PM [facility] | | Diagnostic Imaging Department [address] [place] [address] | | PORTABLE CHEST CLINICAL HISTORY: TACHYCARDIA. [...] 16:57 | |Transcribed Date/Time: 05/13/2011 17:06 | |Silk Opener: | |<Electronically Signed by Jama Solis MD> [...]
--- OUTSIDE RECORDS SUMMARY | ~2019-10-04 | XMS | Encounter Summary ---
Demographics + + + | Address | [address] | | | [place] [address] | + + + | Home Phone [...] Team Providers + +------+ + | Care Event Marketing Specialist Name | Role | Phone | + +------+ + PCP | Unavailable | + +------+ + Encounter Details +--------+ + + + + | Date | Type | Department | Care Team | Description | +--------+ + + + + | 02/28/ | [facility] | [facility] | Geri Angel, | | | 2011 | Encounter | MED CTR XRAY [address] | [facility] [address] | | | | | [place] | [address] [place] | | | | | [place] [address] | [address] | | | | | [phone] | | | +--------+ + + + [...] | | | | | | [place] [address] | | | | | | [phone] | | | | | | | | +--------+ + + + + | 11/20/ | Implant | Cardiology | Daljit Singletary, | Remote Device | | 2019 | Monitor | | [address] | Interrogation | | | | | [place], | (Primary Dx); | | | | | [place] [address] | Presence of | | | | | [phone] | permanent cardiac | | | | [...] Performed At | + + + | [facility] Diagnostic Imaging Department | [place] | | [address] [facility] | [facility] | | LEFT HEART CATHETERIZATION | DIAG IMG | | REPORT 02/29/2012 HEMODYNAMICS: Aortic pressure [...] was taken to | | | Cardiac Leasing Coordinator. He was prepared and draped in the usual fashion | | | under a sterile technique and local anesthesia, percutaneous access | | | was obtained using #6- Czech sheath in the right femoral artery. | | | Right heart cath was not performed in this patient. Left | | | ventriculography was performed using #6-Czech pigtail catheter. | | | The selective coronary angiography were then performed in several | | | sagittal and oblique projection using the 6-Czech JL 4 and #6 Czech | | | 3DRC diagnostic catheters. The [...] Transcribed | | | Date/Time: 02/29/2012 09:09 Television Production Clerk: | | | <Electronically Signed by Daljit Singletary MD [facility]> 02/29/12 | | | 1002 | | + + + + + | Procedure Note | + + | Kevin, Rad Conversion - 12/29/2013 5:04 PM [facility] | | Diagnostic Imaging Department | | [address] [place] | | | | | | [...] patient was taken to Cardiac | | Leasing Coordinator. He was prepared and draped in the usual fashion under a sterile | | technique and local anesthesia, percutaneous access was obtained using #6- | | Czech sheath in the right femoral artery. Right heart cath was not performed | | in this patient. Left ventriculography was performed using #6-Czech pigtail | | catheter. The selective coronary angiography were then performed in several | | sagittal and oblique projection using the 6-Czech JL 4 and #6 Czech 3DRC | | diagnostic catheters. The patient [...] | Transcribed Date/Time: 02/29/2012 09:09 | | Television Production Clerk: | | <Electronically Signed by Daljit Singletary MD [facility]> 02/29/12 1002 | + + + [...]
--- OUTSIDE RECORDS SUMMARY | ~2019-10-04 | XMS | Encounter Summary ---
Demographics + + + | Address | [address] | | | [place] [address] | + + + | Home Phone [...] Providers + +------+ + | Care Group Controller Name | Role | Phone | [...] | 06/22/ | Telephone | [facility] | Vasiliy Michael Kelsey, | Eye Problem | | 2012 | | [facility]IC[facility] [place] | DO [address] | | | | | [address] | [place] | | | | | [place] | [address] | | | | | [address] | | | | | | [phone] | | | +--------+ + + + [...] W | | | | | | [place], | | | | | | [place] [address] | | | | | | [phone] | | | | | | | | +--------+ + + + + | 11/20/ | Implant | Cardiology | Daljit Singletary, | Remote Device | | 2018 | Monitor | | [address] [facility] | Interrogation | | | | | [place], | (Primary Dx); | | | | | [place] [address] | Presence of | | | | | [phone] | permanent cardiac | | | | [...]
--- OUTSIDE RECORDS SUMMARY | ~2019-10-04 | XMS | Encounter Summary ---
Demographics + + + | Address | [address] | | | [place] [address] | + + + | Home Phone [...] Team Providers + +------+ + | Care Edi Manager Name | Role | Phone | [...] | | | | | Sinoatrial | Jose, TRANSCRIPTIONIST | [address] | | | | | node | [address] | [place], | | | | | dysfunction | [place] | [place] | | | | | (HCC) | [place], [place] | [address] | | | | | Coronary | [address] | Phone: | | | | | artery | Phone: | [phone] | | | | | disease | [phone] | Fax: | | | | | involving | Fax: | [phone] | | | | | salt river | [phone] | | | | | | coronary | | | | | | | artery of | | | | | | | salt river heart | | | | | | [...] | | | | | | Complete [place] | | | | | | | ECHO HEART | | | | | | | XTHORACIC,CO | | | | | | | MPLETE W | | | | | | | DOPPLER [place] | | | | | | | [...] + + + | Device Check | Sino Atrial Node Dysfunction | | (In-office) | | + + + Encounter Details +--------+---------+ + + + | Date | Type | Department | Care Team | Description | +--------+---------+ + + + | 12/31/ | Office | [facility] | Jose Angel, | Sinoatrial node | | 2016 | Visit | CARDIOLOGY [address] | TRANSCRIPTIONIST [address] | dysfunction (HCC) | | | | [place], | [place], [place] | with symptomatic | | | | [place] [address] | [address] | bradycardia (Primary | | | | [phone] | | Dx); Coronary | | | | | | artery disease | | | | | | involving salt river | | | | | | coronary artery of | | | | | | [place] heart without | | | | | | angina pectoris; | | | | | | Ascending thoracic | | | | | | aortic aneurysm | | | | | | (HCC); Essential | | | | | | hypertension; | | | | | | Hyperlipidemia, | | | | | | mixed; Pacemaker | | | | | | reprogramming/check | | | | | | DO NOT DELETE; | | | | | | Pacemaker [...] + | Blood Pressure | 110/80 | 12/31/2015 2:18 PM | | | | | PST | | + + + + + | Pulse | 74 | 12/31/2015 2:18 PM | irregular | | | | PST | | + + + + + | Temperature | - | - | | + + + + + | Respiratory Rate | 18 | 12/31/2015 2:18 PM | | | | | PST | | + + + + + | Oxygen Saturation | - | - | | + + + + + | Inhaled Oxygen | - | - | | | Concentration | | | | + + + + + | Weight | 120.7 kg (266 lb) | 12/31/2015 2:18 PM | | | | | PST | | + + + + + | Height | 190.5 cm (6' 3") | 12/31/2015 2:18 PM | | | | | PST | | + + + + + | Body Mass Index | 33.25 | 12/31/2015 2:18 PM | | | | | [...] documented as of this encounter Progress Notes Jose Angel ARNP - 12/31/2015 2:36 PM PSTFormatting of this note might be different fr om the original. PATIENT NAME: Moe Sanchez : 1960: AGE: 55 y.o. PRIMARY CARE: Sarah French MD OUTPATIENT FOLLOW UP VISIT Date of Service: 12/31/15 HISTORY OF PRESENT ILLNESS: Moe Sanchez is a 55 y.o. male with a history of non-critical coronary artery d isease, hypertension, symptomatic bradycardia status post Medtronic dual-chamber permanent p acemaker implantation 06/14/09, frequent premature ventricular contractions status post ablat ion spring 2012, and bipolar disorder with anxiety. He is being seen today for follow up an d device interrogation. He was last seen 08/29/15 at which time he was scheduled for a stat bilateral lower extremit y ultrasound to rule out DVT, and it showed there was no DVT. Since that time he reports he has generally been feeling well. He has had a fair energy level. He has not been very act rudolph and feels that he usually increases his activity when the weather is better. 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 He has not had any chest santosh n or discomfort at rest or with exertion. He has had shortness of breath with exertion of w alking up stairs, but he is limited by his back pain before he notices shortness of breath, ant this is unchanged. He has occasional lightheadedness when standing quickly, which is un changed and not bothersome to him. He has noticed brief palpitations that have no associate d symptoms and are unchanged in frequency and duration from his norm. He has noticed mild s welling at ankles by the end of the day that is resolved in the morning, which has been stab le for him. He is able to sleep laying down at night without any symptoms of shortness of b reath. He does have a CPAP to use at night but his use is intermittent. MEDICAL, SURGICAL, AND PERSONAL HISTORY Past Medical, [...] Preventative health care Coronary artery disease involving salt river coronary artery without angina pectoris Cannabis abuse, [...] by mouth 2 times daily (before meals). LYRICA 150 MG capsule Take 1 capsule by mouth 2 times daily. 0 MELATONIN TABS, at bedtime as needed [...] 3rd dose, call 911 100 tablet 3 Benedict-3 Fatty Acids (SALMON OIL-1000 PO) CAPS, one capsule by mouth daily twice daily ONE TOUCH DELICA LANCETS [facility] [place] Check glucose as needed for hypoglycemia 100 each 3 pantoprazole (PROTONIX) 40 mg tablet Take 1 tablet by mouth every morning (before break fast). 30 tablet 2 pravastatin (PRAVACHOL) 40 MG [...] palpitations and leg swelling. Negative for chest pain, orthop trevor and PND. Gastrointestinal: Negative for abdominal pain. Musculoskeletal: Positive for back pain. Neurological: Negative for dizziness and loss of consciousness. OBJECTIVE: PHYSICAL EXAM BP 110/80 mmHg | Pulse 74 | Resp 18 | Ht 1.905 m (6' 3") | Wt 120.657 kg (266 lb) | BMI 33. 25 kg/m2 Physical Exam Constitutional: He is [...] ECG: I personally reviewed EKG tracing from 08/29/15: Sinus rhythm atrial paced, ventricular sensed with a rate of 74 beats per minute. LAB RESULTS: LIPID Lab Results Component Value [...] PLTEX 163 07/26/2014 I reviewed records from PCP for office visit on 12/30/15. Refer to scanned [facility] documentation and device PDF in 1[employer]bel for interrogation (with progr amming changes) performed during visit today. ASSESSMENT: 1. Non-critical coronary artery disease: A. [...] F. Today, he denies recurrent chest pain. 2. Symptomatic PVC's status post [...] Dr. Gambino at [facility] on 01/30/2013. Patient had spontaneous PVCs from [...] to go back in 3 days to [place] for an attempt of ablation under general [...] dizziness. He is in class I-II of [place] 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 T here are no signs or symptoms of overt congestive heart failure. There is no fluid retentio n on physical examination. He has had a very low number of PVCs on his device check today a nd generally asymptomatic from this standpoint. 3. Sinoatrial node dysfunction with symptomatic bradycardia: A. The echocardiogram on 05/25/09 revealed a normal left ventricular size and sys tolic function, LVEF 65 to 70%. B. Medtronic DDD permanent pacemaker implantation on 06/14/[address] Sydni masters. C. Today his device interrogation shows no events. Heart rate histogram shows a fair distribution. There is a normal stable device function. Estimated remaining battery l ongevity is 5 years.. 4. Hypertension. A. Today blood pressure is [...] on rechecking echoc ardiogram next spring. PLAN: He will continue with his current medical regimen. He will follow up in 6 months for office visit and device interrogation, or sooner with colten jade. He will have echocardiogram prior to visit to follow up his ascending thoracic aorta aneurysm. Electronically signed by: PARISA Velazquez Portions of this chart may have been created with [employer] voice recognition software. Occasi onal wrong-word or [...] | | | | | | [place] [address] | | | | | | [phone] | | | | | | | | +--------+ + + + + | 11/20/ | Implant | Cardiology | Sydni Singletary, | Remote Device | 2018 | Monitor | | [facility] | Interrogation | | | | | [place], | (Primary Dx); | | | | | [place] [address] | Presence of | | | | | [phone] | permanent cardiac | | | | [...] Device Interrogation | Cardiac | Routin | Sinoatrial node | 10 Occurrences | | | Implant | e | dysfunction (HCC) | starting 01/01/2016 | | | | | with symptomatic | until 12/31/2016 | | | | | bradycardia | | | | | | Pacemaker | | | | | | reprogramming/check | | | | | | DO NOT DELETE | | | | | | Pacemaker - | | | | | | Medtronic - [id number] | | | | | | Adapta - Implanted | | | | | | 06/14/2009 | | + + +--------+ + + documented as of this encounter Procedures + +--------+ + + + | Procedure Name | Priori | Date/Time | Associated Diagnosis | Comments | | | ty | | | | + +--------+ + + + | DEVICE INTERROGATION | Routin | 01/01/2016 | Pacemaker | Results for this | | | e | 4:41 PM | reprogramming/check | procedure are in [...] + | DEVICE INTERROGATION | Routin | 01/01/2016 | Pacemaker | Results for this | | | e | 4:41 PM | reprogramming/check | procedure are in [...] + + + | DEVICE INTERROGATION | | 12/31/2015 | | Results for this | | - EXTERNAL SCAN | | 12:00 AM | [...] (TTE) Demographics Patient Name VICTOR HUGO | [facility] | | [place] Room Number SARAH Patient | [facility] | | [id number] Date of Study 06/16/2016 Number | - IMAGING | | Visit Number [id number] | | | Referring Physician HELLBERG JOES Number Date of 1960 | | | Terrazzo Worker Helper LUIS FERNANDO DUARTE Age | | | 56 year(s) Interpreting | | | GURJIT TROY | | | Steaming Cabinet Tender SYDNI SINGLETARY, | | | Gender | | | Male Nurse Procedure Type of Study TTE | | | procedure: ECHO Complete. Procedure dateDate: 06/16/2016Start: 10:55 | | | AM Technical Quality: Adequate visualizationStudy Location: Echo | | | LabIndications: CAD YSLETA DEL SUR CORONARY ARTERY 414.01/ I25.10 and | | [...] BARRY Room Number SARAH | | Patient [id number] Date of Study 06/16/2016 Number Visit Number | | [id number] Referring Physician JOSE ARMANDO GARCIA Number | | Date of 1960 Terrazzo Worker Helper LUIS FERNANDO DUARTE Age | | 56 year(s) Interpreting GURJIT TROY | | Steaming Cabinet Tender SYDNI SINGLETARY, | | Gender Male NurseProcedureType of Study TTE | | procedure: ECHO Complete.Procedure dateDate: 07/26/2016Start: 10:55 AMTechnical Quality: | | Adequate visualizationStudy Location: Echo LabIndications: CAD YSLETA DEL SUR CORONARY ARTERY | | 414.01/ I25.10 and [...] | [address] [facility] | [address] | [place] | [phone] | | [facility] | | [address] | | | - IMAGING | | | | + + + + + Device Interrogation (01/01/2016 4:41 PM PST) + + + | Narrative | Performed At | + + + | Jose AngelPARISA 01/01/2016 16:41 PATIENT NAME: | [facility] | | Moe Sanchez : 1960: AGE: 55 | | | y.o. Device In-office Evaluation Report 12/31/2015 Reason | | | for evaluation: routine Indication for device: ICD-10-CM | | | ICD-9-CM 1. Sinoatrial node dysfunction (HCC) with symptomatic | | | bradycardia I49.5 427.81 ECHO Complete Device Interrogation | | | 2. Coronary artery disease involving salt river coronary artery of | | | salt [place] heart without angina pectoris I25.10 414.01 ECHO [...] | | | + +---------+ + + DEVICE INTERROGATION - EXTERNAL SCAN (12/31/2015 12:00 AM PST) + + + | Narrative | Performed At | + + + | Ordered by an | | | unspecified provider. | | + + + documented in this encounter Visit Diagnoses + + | Diagnosis | + + | Sinoatrial node dysfunction (HCC) with symptomatic bradycardia - Primary Sinoatrial | | node dysfunction | + + | Coronary artery disease involving [place] coronary artery of salt river heart without | | angina pectoris | + + | Ascending thoracic aortic aneurysm (HCC) Thoracic aneurysm without mention of rupture | + + | Essential hypertension Unspecified essential hypertension | + + | Hyperlipidemia, mixed Mixed hyperlipidemia | + + | Pacemaker reprogramming/check DO NOT DELETE Fitting and adjustment of cardiac | | pacemaker | + + | Pacemaker - Medtronic - [id number] Adapta - Implanted 06/14/2009 Cardiac pacemaker in situ | + + documented in this encounter
--- OUTSIDE RECORDS SUMMARY | ~2019-10-04 | XMS | Encounter Summary ---
Demographics + + + | Address | [address] | | | [place] [address] | + + + | Home Phone [...] Providers + +------+ + | Care Emergency Operator Name | Role | Phone | [...] | disease involving | | | | [place], | [place], | nikolski coronary | | | | [place] [address] | [place] [address] | artery without | | | | [phone] | [phone] | angina pectoris | | | | [...] W | | | | | | [place], | | | | | | [place] [address] | | | | | | [phone] | | | | | | | | +--------+ + + + + | 11/20/ | Implant | Cardiology | Daljit Singletary, | Remote Device | | 2018 | Monitor | | [place] [address] [facility] | Interrogation | | | | | [place], | (Primary Dx); | | | | | [place] [address] | Presence of | | | | | [phone] | permanent cardiac | | | | [...] MD | | | | | | ([id number]) on 08/29/2015 | | | | | [...] + + | Coronary artery disease involving nikolski coronary artery without angina pectoris - | | Primary | + + documented in this encounter"
--- OUTSIDE RECORDS SUMMARY | ~2019-10-04 | XMS | Encounter Summary ---
Demographics + + + | Address | [address] | | | [place] [address] | + + + | Home Phone [...] Team Providers + +------+ + | Care Offset Pressman Name | Role | Phone | + +------+ + | Michael Amanda DO | PCP | | + +------+ + Encounter Details +--------+ + + + + | Date | Type | Department | Care Team | Description | +--------+ + + + + | 11/03/ | Emergency | [facility] | Eliel [place], | Palpitations; | | 2013 - | | [facility]ENTER | MD Chiquis JOHNSON | Atypical chest pain | | | | EMERGENCY CENTER | [facility] | | | 11/04/ | | [address] | [address] | | | 2013 | | [place], [place] | | | | | | [address] | | | | | | [phone] | | | +--------+ + + + [...] + + + +---------+ + + | Herndon-3 Fatty | CAPS, one capsule by | [...] +---------+ + + | LORazepam (ATIVAN) | / to 1 tab up to | 20 [...] | | | | | | [place] [address] | | | | | | [phone] | | | | | | | | +--------+ + + + + | 11/20/ | Implant | Cardiology | Daljit Singletary, | Remote Device | | 2019 | Monitor | | [address] [facility] | Interrogation | | | | | [place], | (Primary Dx); | | | | | [place] [address] | Presence of | | | | | [phone] | permanent cardiac | | | | [...] CHEST 2 VIEW FRONTAL | | AND CKYAFZL2211/03/2014 11:56 PM History: 54 years. Male. Acute [...] EXTERNAL | | | | performed at [facility];[address] | | LAB | | | | [address] [facility];[place], [place] | | | | | | [address] | | | | + + + + + -+ | RED CELL | 4.97Comment: Testing | 4.20 - 5.70 | EXTERNAL | | | COUNT | performed at [facility];[address] | M/uL | LAB | | | | [address];[place] | | | | | | [address] | | | | + + + + + -+ | Hgb | 16.8Comment: Testing | 13.2 - 17.0 | EXTERNAL | | | | performed at [facility];[address] | g/dL | LAB | | | | [address];[place] | | | | | | [address] | | | | + + + + + -+ | Hematocrit, | 48.2Comment: Testing | 39.0 - 50.0 % | EXTERNAL | | | POC | performed at [facility];[address] | | LAB | | | | [address];[place] | | | | | | [address] | | | | + + + + + -+ | MCV | 97.1Comment: Testing | 80.0 - 100.0 fl | EXTERNAL | | | | performed at [facility];[address] | | LAB | | | | [address];[place] | | | | | | [address] | | | | + + + + + -+ | MCH | 33.9Comment: Testing | 27.0 - 34.0 pg | EXTERNAL | | | | performed at [facility];[address] | | LAB | | | | [address];[place] | | | | | | [address] | | | | + + + + + -+ | MCHC | 34.9Comment: Testing | 32.0 - 35.5 | EXTERNAL | | | | performed at [facility];[address] | g/dL | LAB | | | | [address];[place] | | | | | | [address] | | | | + + + + + -+ | RDW-CV | 42.4Comment: Testing | 37 - 53 fl | EXTERNAL | | | | performed at [facility];[address] | | LAB | | | | [address];[place] | | | | | | [address] | | | | + + + + + -+ | Platelet | 143 (L)Comment: Testing | 150 - 400 K/uL | EXTERNAL | | | Count | performed at [facility];[address] | | LAB | | | Plasma | [address];[place] | | | | | | [address] | | | | + + + + + -+ | MPV | 9.0Comment: Testing | fl | EXTERNAL | | | | performed at [facility];[address] | | LAB | | | | [address];[place] | | | | | | [address] | | | | + + + + + -+ | Differentia | AUTOMATEDComment: | | EXTERNAL | | | l Type | Testing performed at | | LAB | | | | [facility];[address];[place] [address] | | | | + + + + + -+ | % Segmented | 61.6Comment: Testing | % | EXTERNAL | | | | performed at [facility];[address] | | LAB | | | Neutrophils | [address];[place] | | | | | | [address] | | | | + + + + + -+ | % | 27.8Comment: Testing | % | EXTERNAL | | | Lymphocytes | performed at [facility];[address] | | LAB | | | | [address];[place] | | | | | | [address] | | | | + + + + + -+ | % Monocytes | 8.7Comment: Testing | % | EXTERNAL | | | | performed at [facility];[address] | | LAB | | | | [address];[place] | | | | | | [address] | | | | + + + + + -+ | % | 0.8Comment: Testing | % | EXTERNAL | | | Eosinophils | performed at [facility];[address] | | LAB | | | | [address];[place] | | | | | | [address] | | | | + + + + + -+ | % Basophils | 1.1Comment: Testing | % | EXTERNAL | | | | performed at [facility];[address] | | LAB | | | | [address];[place] | | | | | | [address] | | | | + + + + + -+ | Absolute | 5.4Comment: Testing | 1.9 - 7.4 K/uL | EXTERNAL | | | Segmented | performed at [facility];[address] | | LAB | | | Neutrophils | [address];[place] | | | | | | [address] | | | | + + + + + -+ | Absolute | 2.4Comment: Testing | 1.0 - 3.9 K/uL | EXTERNAL | | | Lymphocytes | performed at [facility];[address] | | LAB | | | | [address];[place] | | | | | | [address] | | | | + + + + + -+ | Absolute | 0.8Comment: Testing | 0 - 0.8 K/uL | EXTERNAL | | | Monocytes | performed at [facility];[address] | | LAB | | | | [address];[place] | | | | | | [address] | | | | + + + + + -+ | Absolute | 0.1Comment: Testing | 0 - 0.5 K/uL | EXTERNAL | | | Eosinophils | performed at [facility];[address] | | LAB | | | | [address];[place] | | | | | | [address] | | | | + + + + + -+ | Absolute | 0.1Comment: Testing | 0 - 0.1 K/uL | EXTERNAL | | | Basophils | performed at [facility];[address] | | LAB | | | | [address];[place] | | | | | | [address] | | | | + + + + + -+ | RBC | SLIDE SCANNED, AGREES | | EXTERNAL | | | Morphology | WITH AUTOMATED | | LAB | | | | RESULTS.Comment: Testing | | | | | | performed at [facility];[address] | | | | | | [address];[place] | | | | | | [address] | | | | + + + + + -+ | Na | 140Comment: Testing | 135 - 143 | EXTERNAL | | | | performed at [facility];[address] | mmol/L | LAB | | | | [address];[place] | | | | | | [address] | | | | + + + + + -+ | K | 3.9Comment: Testing | 3.5 - 4.9 | EXTERNAL | | | | performed at [facility];[address] | mmol/L | LAB | | | | [address];[place] | | | | | | [address] | | | | + + + + + -+ | Cl | 107Comment: Testing | 99 - 109 mmol/L | EXTERNAL | | | | performed at [facility];[address] | | LAB | | | | [address];[place] | | | | | | [address] | | | | + + + + + -+ | CO2 | 28Comment: Testing | 23 - 32 mmol/L | EXTERNAL | | | | performed at [facility];[address] | | LAB | | | | [address];[place] | | | | | | [address] | | | | + + + + + -+ | Anion Gap | 9Comment: Testing | 5 - 20 mmol/L | EXTERNAL | | | | performed at [facility];[address] | | LAB | | | | [address];[place] | | | | | | [address] | | | | + + + + + -+ | Glucose, | 97Comment: Testing | 65 - 99 mg/dL | EXTERNAL | | | Fasting | performed at [facility];[address] | | LAB | | | | [address];[place] | | | | | | [address] | | | | + + + + + -+ | BUN | 14Comment: Testing | 8 - 25 mg/dL | EXTERNAL | | | | performed at [facility];[address] | | LAB | | | | [address];[place] | | | | | | [address] | | | | + + + + + -+ | Creatinine | 0.98Comment: Testing | 0.70 - 1.30 | EXTERNAL | | | | performed at [facility];[address] | mg/dL | LAB | | | | [address];[place] | | | | | | [address] | | | | + + + + + -+ | BUN/Creatin | 14Comment: Testing | | EXTERNAL | | | ine Ratio | performed at [facility];[address] | | LAB | | | | [address];[place] | | | | | | [address] | | | | + + + + + -+ | Calcium | 8.8Comment: Testing | 8.5 - 10.2 | EXTERNAL | | | | performed at [facility];[address] | mg/dL | LAB | | | | [address];[place] | | | | | | [address] | | | | + + + + + -+ | Protein, | 6.9Comment: Testing | 6.3 - 8.2 g/dL | EXTERNAL | | | Total | performed at [facility];[address] | | LAB | | | | [address];[place] | | | | | | [address] | | | | + + + + + -+ | Albumin | 3.7Comment: Testing | 3.6 - 5.0 g/dL | EXTERNAL | | | | performed at [facility];[address] | | LAB | | | | [address];[place] | | | | | | [address] | | | | + + + + + -+ | Globulin | 3.2Comment: Testing | 1.3 - 4.9 g/dL | EXTERNAL | | | | performed at [facility];[address] | | LAB | | | | [address];[place] | | | | | | [address] | | | | + + + + + -+ | A/G Ratio | 1.2Comment: Testing | 1.0 - 2.4 | EXTERNAL | | | | performed at [facility];[address] | | LAB | | | | [address];[place] | | | | | | [address] | | | | + + + + + -+ | Bilirubin | 0.9Comment: Testing | 0.1 - 1.5 mg/dL | EXTERNAL | | | Total | performed at [facility];[address] | | LAB | | | | [address];[place] | | | | | | [address] | | | | + + + + + -+ | ALP, | 60Comment: Testing | 35 - 115 U/L | EXTERNAL | | | External | performed at [facility];[address] | | LAB | | | | [address];[place] | | | | | | [address] | | | | + + + + + -+ | AST | 22Comment: Testing | 10 - 45 U/L | EXTERNAL | | | | performed at [facility];[address] | | LAB | | | | [address];[place] | | | | | | [address] | | | | + + + + + -+ | ALT | 37Comment: Testing | 10 - 65 U/L | EXTERNAL | | | | performed at [facility];[address] | | LAB | | | | [address];[place] | | | | | | [address] | | | | + + + [...] | | | | | | at [facility];[address] [facility] | | | | | | [address]vd;[place] [address] | | | | + + + + + -+ | CK, Total | 103Comment: Testing | 55 - 400 U/L | EXTERNAL | | | | performed at [facility];[address] | | LAB | | | | [facility] [address];[place], [place] | | | | | | [address] | | | | + + + [...] | | | | | performed at [facility];[address] | | | | | | [address];[place] | | | | | | [address] | | | | + + + + + -+ | aPTT, | 26Comment: Testing | 23 - 32 seconds | EXTERNAL | | | Patient | performed at [facility];[address] | | LAB | | | | [address];[place] | | | | | | [address] | | | | + + + + + -+ | CK-MB | 2.9Comment: Testing | 0.5 - 3.6 ng/mL | EXTERNAL | | | | performed at [facility];[address] | | LAB | | | | [address];[place] | | | | | | [address] | | | | + + + [...] + + + + + + | TSI | 3.20Comment: Testing | 0.45 - 5.10 | EXTERNAL | | | | performed at [facility];[address] | uIU/mL | LAB | | | | [address];[place], [place] | | | | | | [address] | | | | + + + [...] EXTERNAL | | | | performed at [facility];[address] | | LAB | | | | [address];[place] | | | | | | [address] | | | | + + + [...] EXTERNAL | | | | performed at [facility];[address] | | LAB | | | | [address];[place], [place] | | | | | | [address] | | | | + + + [...]
--- OUTSIDE RECORDS SUMMARY | ~2019-10-04 | XMS | Encounter Summary ---
Demographics + + + | Address | [address] | | | [place] [address] | + + + | Home Phone [...] Providers + +------+ + | Care Farm Management Supervisor Name | Role | Phone | + +------+ + | Michael Amanda DO | PCP | | + +------+ + Encounter Details +--------+ + + + + | Date | Type | Department | Care Team | Description | +--------+ + + + + | 05/11/ | Hospital | [facility] | Conversion | Lumbago; | | 2013 | Encounter | [facility]ICAL [facility]ENTER | Transaction, | Postlaminectomy | | | | CLINICAL DECISION | Provider Unknown | syndrome, cervical | | | | [address] | | region; Cervicalgia | | | | [place], [place] | (Fax) | | | | | [address] | Cesar, | | | | | [phone] | MD Gamaliel | | +--------+ + [...] + + + +---------+ + + | [place]-3 Fatty | CAPS, one capsule by | [...] Note by Meliza Macario RN at 05/11/14 150 Author: Meliza Macario RN Service: (none) Author Type: Registered Nurse Filed: 05/11/14 1506 Date of Service: 05/11/14 150 Status: Signed Prn Occupational Therapist: Meliza Macario RN (Registered Nurse) Pt discharged home, discharge instructions were reviewed, prescriptions provided, and quest ions answered. IV discontinued- gauze and tape applied to site. onver fatemeh Transaction, Provider Unknown - 05/11/2014 2:23 PM PDT Nurse Progress Note by Heike Mckeon RN at 05/11/14 142 Author: Heike Mckeon RN Service: (none) Author Type: Registered Nurse Filed: 05/11/14 1424 Date of Service: 05/11/14 142 Status: Signed Prn Occupational Therapist: Heike Mckeon RN (Registered Nurse) Called doctor [...] W | | | | | | [place], | | | | | | [place] [address] | | | | | | [phone] | | | | | | | | +--------+ + + + + | 11/20/ | Implant | Cardiology | Daljit Singletary, | Remote Device | | 2018 | Monitor | | MD Sim [facility] | Interrogation | | | | | [place], | (Primary Dx); | | | | | [place] [address] | Presence of | | | | | [phone] | permanent cardiac | | | | [...] | | | intrathecal use. See the glass sander examination for details of the | | | injection. Bone algorithm noncontrast technique with reformatted | | | sagittal and coronal images. Prior study for review : CT discogram | | | from 2004 was used to orient this examination given the transitional | | | anatomy of the lumbosacral junction FINDINGS: Rehabilitation Aide/Scheduler is notable | | | for a [...] for intrathecal use. See | | the glass sander examination for details of the injection. Bone algorithm noncontrast | | technique with reformatted sagittal and coronal images. Prior study for review : CT | | discogram from 2004 was used to orient this examination given the transitional anatomy | | of the lumbosacral junction FINDINGS: Rehabilitation Aide/Scheduler is notable for a pacing system. Anterior [...]
--- OUTSIDE RECORDS SUMMARY | ~2019-10-04 | XMS | Encounter Summary ---
Demographics + + + | Address | [address] | | | [place] [address] | + + + | Home Phone [...] + +------+ + | Care Information Systems Architect Name | Role | Phone | [...] 2019 | | GASTROENTEROLOGY | [address], [place] | | | | | [address] [place] | [address] [place], [place] | | | | | [address] [place], [place] | [address] | | | | | [address] | | | | | | [phone] | | | +--------+ + + + [...] W | | | | | | [place], | | | | | | [place] [address] | | | | | | [phone] | | | | | | | | +--------+ + + + + | 11/20/ | Implant | Cardiology | Daljit Singletary, | Remote Device | | 2019 | Monitor | | [address] | Interrogation | | | | | [place], | (Primary Dx); | | | | | [place] [address] | Presence of | | | | | [phone] | permanent cardiac | | | | [...]
--- OUTSIDE RECORDS SUMMARY | ~2019-10-04 | XMS | Encounter Summary ---
Demographics + + + | Address | [address] | | | [place] [address] | + + + | Home Phone [...] Providers + +------+ + | Care Engineering Designer Name | Role | Phone | [...] | | | | of feces, | [place], [place] | [address] | | | | | unspecified | [address] [place] | [place], [place] | | | | | fecal | [place], [place] | [address] | | | | | incontinence | [address] | Phone: | | | | | type | Phone: | [phone] | | | | | Diarrhea, | [phone] | Fax: | | | | | unspecified | Fax: | [phone] | | | | | type | [phone] | | +--------+ + + + + [...] 2018 | | GASTROENTEROLOGY | [address] [place], [place] | | | | | [address] [place] | [address] [place], [place] | | | | | [address] [place], [place] | [address] | | | | | [address] | | | | | | [phone] | | | +--------+ + + + [...] | | | | | | [place] [address] | | | | | | [phone] | | | | | | | | +--------+ + + + + | 11/20/ | Implant | Cardiology | Daljit Singletary, | Remote Device | | 2018 | Monitor | | [address] [place] | Interrogation | | | | | [place], | (Primary Dx); | | | | | [place] [address] | Presence of | | | | | [phone] | permanent cardiac | | | | [...]
--- OUTSIDE RECORDS SUMMARY | ~2019-10-04 | XMS | Encounter Summary ---
Demographics + + + | Address | [address] | | | [place] [address] | + + + | Home Phone [...] Team Providers + +------+ + | Care Flying Instructor Name | Role | Phone | [...] + + | 01/03/ | Telephone | [facility] | Emmanuel Daniel MD | Results, Pathology | | 2018 | | GASTROENTEROLOGY | [address], [place] | (egd,colon) | | | | [address] [place] | [address] [place], [place] | | | | | 210 [place], [place] | [address] | | | | | [address] | | | | | | [phone] | | | +--------+ + + + [...] | | | | | | [place], | | | | | | [place] [address] | | | | | | [phone] | | | | | | | | +--------+ + + + + | 11/20/ | Implant | Cardiology | Daljit Singletary, | Remote Device | | 2018 | Monitor | | MD Sim [place] [address] | Interrogation | | | | | [facility], | (Primary Dx); | | | | | [place] [address] | Presence of | | | | | [phone] | permanent cardiac | | | | [...]
--- OUTSIDE RECORDS SUMMARY | ~2019-10-04 | XMS | Encounter Summary ---
Demographics + + + | Address | [address] | | | [place] [address] | + + + | Home Phone [...] Team Providers + +------+ + | Care Household Refrigerator Mechanic Name | Role | Phone | [...] [place], [place] | | | | | [place] | | [address] Phone: | | | | | CYSTO/URETER | | [phone] | | | | | O | | Fax: | | | | | W/LITHOTRIPS | | [phone] | | | | | Y &INDWELL [...] + + | 04/13/ | Surgery | [facility] | Matthew Uriarte | Cystoscopy, Left | | 2018 | | MED CTR OR INTRA OP | Dahl, MD [address] | ureteroscopy with | | | | [address] | [place] | laser lithotripsy, | | | | [place], [place] | [address] | Left ureteral stent | | | | [address] | | placement | | | | [phone] | | | +--------+---------+ + + + [...] Care Everywhere.Kidney Stones, Treating: Ureteroscopic Stone Removal (Ukrainian)Stents, Ureteral (Ukrainian)documented in this encounter Medications at Time of [...] + + + +---------+ + + | [place]-3 Fatty | CAPS, one capsule by | [...] | | | | | | | [place] coronary | | | | | | | artery of [place] | | | | | | | [...] | | | | | | [place] [address] | | | | | | [phone] | | | | | | | | +--------+ + + + + | 11/20/ | Implant | Cardiology | Daljit Singletary, | Remote Device | | 2018 | Monitor | | [address] [facility] | Interrogation | | | | | [place], | (Primary Dx); | | | | | [place] [address] | Presence of | | | | | [phone] | permanent cardiac | | | | [...] [facility] | | | | | | at:[phone]. | | | | + + + [...] Performed at: 01 - [facility] [address] | REFERENCE LAB | | [place], [place] [id number] Mrb Engineer: Yeny Rios MD, Phone: | ARSH CASTANON | | [phone] | | + + + + + + + + | Performing | Address | City/State/Zipcode | Phone Number | | Organization | | | | + + + + + | REFERENCE LAB | [address] | [place] [address] | [phone] | | [facility] | Drive [...] [address] | [place] | [phone] | | [facility] | | [address] | | | - LABORATORY | | [...] ST. | [address] | [place], [place] | [phone] | | [facility] | | [address] | | | - LABORATORY | | [...] [address] | [place] | [phone] | | [facility] | | [address] | | | - LABORATORY | | [...] + | [address] | [address] | [place] | [phone] | | [facility] | | [address] | | | - LABORATORY | | [...] | 0.92 | 0.70 - 1.30 | [facility] | | | | | mg/dL | [facility] | | | | | | MEDICAL | | | | | | CENTER - | | | | | | LABORATORY | | + + + + + + | eGFR if not | >60Comment: GLOMERULAR | >=60 | [facility] | | | | FILTRATION | mL/min/1.73m2 | [facility] | | | ALGERIAN | RATE,ESTIMATED | | MEDICAL | | | | mL/min/1.82y7Gpra than | | CENTER - | | [...] GUT[facility]REZ. | [address] | [place] | [phone] | | [facility] | | [address] | | | - LABORATORY | | [...] First | | | dose on [facility] 04/13/19 at 1400, | | | Start 8 hours after pre-op dose., | | | Post-op/Phase II | | + +---+ | | | + +---+ | albuterol 2.5 mg/3 mL nebulizer | | | solution 2.5 mg 2.5 mg, | | | Nebulization, ONCE PRN, Wheezing, | | | Starting [facility] 04/13/19 at 0917, | | | [...] < 40, | | | Starting [facility] 04/13/19 at 0917, For | | | 2 doses, May repeat one time | | | after 1 min., Recovery/Phase I | | + +---+ | | | + +---+ + +-------+ +--------+---+---+ | ciprofloxacin (CIPRO) tablet | Given | 04/13/20 | 500 mg | | | | 500 mg 500 mg, Oral, ONCE, [facility] | | 19 7:35 | | [...] glucose < 50, | | | Starting [facility] 04/13/19 at 0634, | | | [...] | | | | | | | [id number]-oby-[id number] use of at least | | | [...]
--- OUTSIDE RECORDS SUMMARY | ~2019-10-04 | XMS | Encounter Summary ---
Demographics + + + | Address | [address] | | | [place] [address] | + + + | Home Phone [...] Providers + +------+ + | Care Neon Electrician Name | Role | Phone | + [...] Refill | | 2013 | | [facility] [place] | DO [address] | | | | | [address] | [place] | | | | | [place] | [address] | | | | | [address] | | | | | | [phone] | | | +--------+--------+ + + + [...] W | | | | | | [place], | | | | | | [place] [address] | | | | | | [phone] | | | | | | | | +--------+ + + + + | 11/20/ | Implant | Cardiology | Daljit Singletary, | Remote Device | | 2018 | Monitor | | [address] [facility] | Interrogation | | | | | [place], | (Primary Dx); | | | | | [place] [address] | Presence of | | | | | [phone] | permanent cardiac | | | | [...]
--- OUTSIDE RECORDS SUMMARY | ~2019-10-04 | XMS | Encounter Summary ---
Demographics + + + | Address | [address] | | | [place] [address] | + + + | Home Phone [...] Providers + +------+ + | Care Auto Machinist Name | Role | Phone | + [...] | | CARDIOLOGY [address] | Janeen, ADMINISTRATIVE PROCESSOR [address] | reading) | | | | [place], | [place], | | | | | [place] [address] | [place] [address] | | | | | [phone] | [phone] | | | | | | | [...] | | | | | | [place] [address] | | | | | | [phone] | | | | | | | | +--------+ + + + + | 11/20/ | Implant | Cardiology | Daljit Singletary, | Remote Device | | 2018 | Monitor | | MD [address] | Interrogation | | | | | [place], | (Primary Dx); | | | | | [place] [address] | Presence of | | | | | [phone] | permanent cardiac | | | | [...]
--- OUTSIDE RECORDS SUMMARY | ~2019-10-04 | XMS | Encounter Summary ---
Demographics + + + | Address | [address] | | | [place] [address] | + + + | Home Phone [...] Team Providers + +------+ + | Care Aerial Installer Name | Role | Phone | [...] [address] | | | | | | [place], [place] | (Fax) | | | | | [address] | | | | | | [phone] | | | +--------+ + + + [...] | | | | | | [place] [address] | | | | | | [phone] | | | | | | | | +--------+ + + + + | 11/20/ | Implant | Cardiology | Daljit Singletary, | Remote Device | | 2018 | Monitor | | [address] [facility] | Interrogation | | | | | [place], | (Primary Dx); | | | | | [place] [address] | Presence of | | | | | [phone] | permanent cardiac | | | | [...]
--- OUTSIDE RECORDS SUMMARY | ~2019-10-04 | XMS | Encounter Summary ---
Demographics + + + | Address | [address] | | | [place] [address] | + + + | Home Phone [...] Team Providers + +------+ + | Care Chartered Wealth Manager Name | Role | Phone | [...] | disease involving | | | | [place], | [place], | lovelock coronary | | | | [place] [address] | [place] [address] | artery of lo[place]ock | | | | [phone] | [phone] | heart without angina | | | [...] W | | | | | | [place], | | | | | | [place] [address] | | | | | | [phone] | | | | | | | | +--------+ + + + + | 11/20/ | Implant | Cardiology | Daljit Singletary, | Remote Device | | 2018 | Monitor | | MD Sim [facility] | Interrogation | | | | | 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
--- OUTSIDE RECORDS SUMMARY | ~2019-10-04 | XMS | Encounter Summary ---
Demographics + + + | Address | [address] [place] [address] | | | [place] [address] | + + + | Home Phone | | + + + | Preferred Language | Unknown | + + + | Marital Status | | + + + | Jehovah'S Witness Affiliation | Unknown | + + + [...] [place] | | | | | [address] | | + + + + + Care Team Providers + +------+ + | Care Manufacturing Storeperson Name | Role | Phone | + [...]
--- OUTSIDE RECORDS SUMMARY | ~2019-10-04 | XMS | Encounter Summary ---
Demographics + + + | Address | [address] | | | [place] [address] | + + + | Home Phone [...] Team Providers + +------+ + | Care Vegetable Washing Machine Operator Name | Role | Phone | + +------+ + | Kirk French MD | PCP | | + +------+ + Encounter Details +--------+ + + + + | Date | Type | Department | Care Team | Description | +--------+ + + + + | 10/25/ | Hospital | [facility] | Kirk French | Aneurysm (HCC) | | 2017 | Encounter | MED CTR ULTRASOUND | D, MD [address] | | | | | [address] [place] | [address] | | | | | [place], [place] | [place] [address] | | | | | [address] | [phone] | | | | | [phone] | | | | | | | [...] + + + +---------+ + + | [place]-3 Fatty | CAPS, one capsule by | [...] | | | | | | [place] [address] | | | | | | [phone] | | | | | | | | +--------+ + + + + | 11/20/ | Implant | Cardiology | Daljit Singletary, | Remote Device | | 2019 | Monitor | | [address] [facility] | Interrogation | | | | | [place], | (Primary Dx); | | | | | [place] [address] | Presence of | | | | | [phone] | permanent cardiac | | | | [...]
--- OUTSIDE RECORDS SUMMARY | ~2019-10-04 | XMS | Encounter Summary ---
Demographics + + + | Address | [address] | | | [place] [address] | + + + | Home Phone [...] Team Providers + +------+ + | Care Automated Logistics Specialist Name | Role | Phone | + +------+ + PCP | Unavailable | + +------+ + Encounter Details +--------+ + + + + | Date | Type | Department | Care Team | Description | +--------+ + + + + | 05/28/ | [facility] | [facility] | Evan Gandara MD | | | 2008 | Encounter | MED CTR LABORATORY | [address] [facility] | | | | | [address] [place] | [place] | | | | | [place] | [address] | | | | | [address] | | | | | | [phone] | | | +--------+ + + + [...] | | | | | | [place] [address] | | | | | | [phone] | | | | | | | | +--------+ + + + + | 11/20/ | Implant | Cardiology | Daljit Singletary, | Remote Device | | 2019 | Monitor | | MD [address] | Interrogation | | | | | [place], | (Primary Dx); | | | | | [place] [address] | Presence of | | | | | [phone] | permanent cardiac | | | | [...]
--- OUTSIDE RECORDS SUMMARY | ~2019-10-04 | XMS | Encounter Summary ---
Demographics + + + | Address | [address] | | | [place] [address] | + + + | Home Phone [...] Team Providers + +------+ + | Care Campus Supervisor Name | Role | Phone | [...] 2012 | | CARDIOLOGY [address] | NAUMKEAG OPERATOR [address] | | | | | [place], | [place], [place] | | | | | [place] [address] | [address] | | | | | [phone] | | | +--------+ + + + [...] | | | | | | [place] [address] | | | | | | [phone] | | | | | | | | +--------+ + + + + | 11/20/ | Implant | Cardiology | Daljit Singletary, | Remote Device | | 2018 | Monitor | | MD [address] | Interrogation | | | | | [place], | (Primary Dx); | | | | | [place] [address] | Presence of | | | | | [phone] | permanent cardiac | | | | [...]
--- OUTSIDE RECORDS SUMMARY | ~2019-10-04 | XMS | Encounter Summary ---
Demographics + + + | Address | [address] | | | [place] [address] | + + + | Home Phone [...] + +------+ + | Care Director Of Advertising Sales Name | Role | Phone | [...] | Palpitations | [address] | | | | | Procedures | [address] | [address] [place] | | | | | ECHO | [place], | [place], [place] | | | | | Complete | [place] [address] | [address] | | | | | | Phone: | Phone: | | | | | | [phone] | [phone] | | | | | | Fax: | Fax: | | | | | | [phone] | [phone] | +--------+--------+ + + + + Encounter Details +--------+ + + + + | Date | Type | Department | Care Team | Description | +--------+ + + + + | 12/30/ | Hospital | [facility] | TimmyshaistateshaShaistatimmy, | Palpitations | | 2012 - | Encounter | MED CTR XRAY [address] | MD [address] | | | | | [place] | [address], | | | 01/01/ | | [place] [address] | [place] [address] | | | 2012 | | [phone] | [phone] | | | | | | | [...] + + + +---------+ + + | [place]-3 Fatty | CAPS, one capsule by | [...] | | | | | | [place] [address] | | | | | | [phone] | | | | | | | | +--------+ + + + + | 11/20/ | Implant | Cardiology | Daljit Singletary, | Remote Device | | 2019 | Monitor | | [address] | Interrogation | | | | | [place], | (Primary Dx); | | | | | [place] [address] | Presence of | | | | | [phone] | permanent cardiac | | | | [...] [facility] Diagnostic Imaging | [place] | | Department [address] [facility] | [facility] | | [ rep ct street1+2] [ rep ct [facility] | | st zip] Signed | - IMAGING | | | | | Patient Name: MOE GAY W | | | Physician: MIGUELINA : 1960 Age: 52 Sex: M Unit | | | #: [id number] Exam Date: 12/30/12 Location: | | | G Report #: [id number] Page: | | | %(RAD)RES..mtdd.print.filter("pg") of %(RAD) | | | RES..mtdd.print.filter("tpg") | | | | | | Accession Number: [id number] | | | E C H O C A R D I O G R A P H Y R E P O R T | | | HEIGHT: 76" WEIGHT: 270# | | | RN HOME HEALTH: JAMEEL REFERRING DR: TIMMY DRAKE DR: | [...] | | | Transcribed Date/Time: 12/30/2012 16:34 Senior Technical Recruiter: | | | <<Signature on File>> | | | Daljit | | | MD CLEOPATRA Singletary FASE01/02/13 0955 <Electronically signed by | | | Daljit Singletary MD, [facility], FACP, FASE, FASNC> Rashadong | | | MD CLEOPATRA Singletary 12/30/12 1608 Senior Technical Recruiter: [email or web address] | | | Alutrctjonszp87/08/13 1634 Daljit Singletary MD FACC | | | FASE | | + + + + + + + + | Performing | Address | City/State/Zipcode | Phone Number | | Organization | | | | + + + + + | [facility] | [address] | [place] | [phone] | | [facility] | | [address] | | | - IMAGING | | | | + + + + + documented in this encounter Visit Diagnoses + + | Diagnosis | + + | Palpitations | + + documented in this encounter
--- OUTSIDE RECORDS SUMMARY | ~2019-10-04 | XMS | Encounter Summary ---
Demographics + + + | Address | [address] | | | [place] [address] | + + + | Home Phone [...] Providers + +------+ + | Care Recreational Sports Director Name | Role | Phone | [...] + + | 05/15/ | Office | [facility] | Matthew Uriarte | Kidney stones | | 2019 | Visit | [address] | MD Tawanna [address] | (Primary Dx) | | | | [place], [place] | [place], [place] | | | | | [address] | [address] | | | | | [phone] | | | +--------+---------+ + + + [...] [employer] Peptic ulcer disease Premature ventricular contraction [facility] health care 06/26/2013 LAST PSA:12/16/2010 RESULT:0.14 LAST [...] CV LHC; Surgeon: Daljit Singletary MD; Location: [facility] CV LAB CARDIAC CATHERIZATION N/A 01/25/2019 Procedure: CV Cor Angio; Surgeon: Daljit Singletary MD; Location: [facility] CV LAB COLONOSCOPY N/A 12/24/2017 Procedure: COLONOSCOPY; Surgeon: Emmanuel Daniel MD; Location: [facility] MEDICAL PROCEDURE UNIT COLONOSCOPY N/A 01/05/2019 Procedure: COLONOSCOPY; Surgeon: Emmanuel Daniel MD; Location: [facility] MEDICAL PROCEDURE UNIT EGD 12/24/2017 HARDWARE [...] Procedure: EGD; Surgeon: Emmanuel Daniel MD; Location: [facility] MEDICAL PROCEDURE UNIT UPPER GASTROINTESTINAL ENDOSCOPY N/A 01/05/2019 Procedure: EGD; Surgeon: Emmanuel Daniel MD; Location: [facility] MEDICAL PROCEDURE UNIT URETEROSCOPY Left 04/13/2019 Procedure: Cystoscopy, Left ureteroscopy with laser lithotripsy, Left ureteral stent place ment; Surgeon: Matthew Uriarte MD; Location: [facility] MAIN OR VASECTOMY Family History: Family History [...] 911, Disp: 100 ta blet, Rfl: 3 [place]-3 Fatty Acids (SALMON OIL-1000 PO), CAPS, one [...] pH, Urine 8.0 5.0 - 8.0 Specific Blum 1.008 1.001 - 1.030 Protein, Urine Negative [...] have not thoroughly proofread this note, and historical records administrator errors are very likely to occur. CC: [...] W | | | | | | [place], | | | | | | [place] [address] | | | | | | [phone] | | | | | | | | +--------+ + + + + | 11/20/ | Implant | Cardiology | Daljit Singletary, | Remote Device | | 2018 | Monitor | | [address] [facility] | Interrogation | | | | | [place], | (Primary Dx); | | | | | [place] [address] | Presence of | | | | | [phone] | permanent cardiac | | | | [...]
--- OUTSIDE RECORDS SUMMARY | ~2019-10-04 | XMS | Encounter Summary ---
Demographics + + + | Address | [address] | | | [place] [address] | + + + | Home Phone [...] Team Providers + +------+ + | Care Blade Changer Name | Role | Phone | + [...] | | | [place], [place] | [place] [address] | | | | | | [address] | Phone: | | | | | | Phone: | [phone] | | | | | | [phone] | Fax: | | | | | | Fax: | [phone] | | | | | | [phone] | | +--------+ + + + + + Reason for Visit + + + | Reason | Comments | + + + | Medicare Wellness | | + + + Encounter Details +--------+---------+ + + + | Date | Type | Department | Care Team | Description | +--------+---------+ + + + | 07/25/ | Office | [facility] | Michael Amanda, | Preventative health | | 2014 | Visit | MEDICINE [place] | DO [address] | care (Primary Dx); | | | | [address] | [place] | Cannabis abuse, | | | | [place] | [address] | daily use; Urinary | | | | [address] | | frequency; | | | | [phone] | | Incontinence; | | | | [...] needed for Chest pain. 25 tablet 12 [place]-3 Fatty Acids (SALMON OIL-1000 PO) CAPS, one capsule by mouth daily twice daily ONE TOUCH DELICA LANCETS [facility] Check glucose as needed for hypoglycemia 100 [...] as Nurse Practitioner (Cardiology) FENG Chou (Physician Global Compensation Manager) Current Medicare Suppliers: [facility] - [place], [place] - [address] [place] [address] [facility] - [place], [place] - [address] [place] [address] HEALTH RISK ASSESSMENT: : The patient or [...] following health maintenance items are [facility] and correct as of today: [...] no kevin in the usual sections in [employer]. documented in this en counter Plan of Treatment +--------+ + + + + | Date | Type | Specialty | Care Team | Description | +--------+ + + + + | 11/09/ | Office | Cardiology | Silvia, | | | 2018 | Visit | | PARISA [place] [address] | | | | | | [place], | | | | | | [place] [address] | | | | | | [phone] | | | | | | | | +--------+ + + + + | 11/20/ | Implant | Cardiology | Joshcrispincherelle Shaistakenneth, | Remote Device | | 2018 | Monitor | | [facility] | Interrogation | | | | | [place], | (Primary Dx); | | | | | [place] [address] | Presence of | | | | | [phone] | permanent cardiac | | | | [...] - Primary Routine general medical examination at [facility] | | care facility | + [...]
--- OUTSIDE RECORDS SUMMARY | ~2019-10-04 | XMS | Encounter Summary ---
Demographics + + + | Address | [address] | | | [place] [address] | + + + | Home Phone [...] Providers + +------+ + | Care Inspector Toys Name | Role | Phone | + [...] | 10/09/ | Telephone | [facility] [place] [facility] | Michael Amanda, | Other | | 2012 | | MEDICINE [place] | DO [address] | | | | | [address] | [place] | | | | | [place] | [address] | | | | | [address] | | | | | | [phone] | | | +--------+ + + + [...] W | | | | | | [place], | | | | | | [place] [address] | | | | | | [phone] | | | | | | | | +--------+ + + + + | 11/20/ | Implant | Cardiology | Daljit Singletary, | Remote Device | | 2018 | Monitor | | MD Chiquis Oro | Interrogation | | | | | [place], | (Primary Dx); | | | | | [place] [address] | Presence of | | | | | [phone] | permanent cardiac | | | | [...]
--- OUTSIDE RECORDS SUMMARY | ~2019-10-04 | XMS | Encounter Summary ---
Demographics + + + | Address | [address] | | | [place] [address] | + + + | Home Phone [...] Providers + +------+ + | Care Lumber Sales Supervisor Name | Role | Phone | [...] | | CARDIOLOGY [address] | Janeen REVENUE INSPECTOR [address] | mixed | | | | [place], | [place], | | | | | [place] [address] | [place] [address] | | | | | [phone] | [phone] | | | | | | | [...] | | | | | | [place] [address] | | | | | | [phone] | | | | | | | | +--------+ + + + + | 11/20/ | Implant | Cardiology | Daljit Singletary, | Remote Device | | 2018 | Monitor | | MD Sim [facility] | Interrogation | | | | | [facility], | (Primary Dx); | | | | | [place] [address] | Presence of | | | | | [phone] | permanent cardiac | | | | [...]
--- OUTSIDE RECORDS SUMMARY | ~2019-10-04 | XMS | Encounter Summary ---
Demographics + + + | Address | [address] | | | [place] [address] | + + + | Home Phone [...] Providers + +------+ + | Care Visitor Services Specialist Name | Role | Phone [...] + | 09/01/ | Telephone | [facility] | Silvia, | Appointment | | 2016 | | CARDIOLOGY [address] | PARISA [place] [address] | (Reschedule) | | | | [place], | [place], | | | | | [place] [address] | [place] [address] | | | | | [phone] | [phone] | | | | | | | [...] W | | | | | | [place], | | | | | | [place] [address] | | | | | | [phone] | | | | | | | | +--------+ + + + + | 11/20/ | Implant | Cardiology | Daljit Singletary, | Remote Device | | 2018 | Monitor | | [address] [place] | Interrogation | | | | | [place], | (Primary Dx); | | | | | [place] [address] | Presence of | | | | | [phone] | permanent cardiac | | | | [...]
--- OUTSIDE RECORDS SUMMARY | ~2019-10-04 | XMS | Encounter Summary ---
Demographics + + + | Address | [address] | | | [place] [address] | + + + | Home Phone [...] Team Providers + +------+ + | Care Catch Basin Cleaner Name | Role | Phone | [...] | | | | CENTER [address] | [place], [place] | insufficiency | | | | [place], [place] | [address] | | | | | [address] | | | | | | [phone] | | | +--------+ + + + [...] sent through Care Everywhere.PERIPHERAL KENYETTA A, BILATERAL (NEPALI)documented in this encounter Medications at Time of [...] + + + +---------+ + + | [place]-3 Fatty | CAPS, one capsule by | [...] | | | | | | | #[id number], exp 07/2016 | | | | | [...] | | | | | | [place] [address] | | | | | | [phone] | | | | | | | | +--------+ + + + + | 11/20/ | Implant | Cardiology | Daljit Singletary, | Remote Device | | 2018 | Monitor | | MD Chiquis Oro | Interrogation | | | | | [place], | (Primary Dx); | | | | | [place] [address] | Presence of | | | | | [phone] | permanent cardiac | | | | [...]
--- OUTSIDE RECORDS SUMMARY | ~2019-10-04 | XMS | Encounter Summary ---
Demographics + + + | Address | [address] | | | [place] [address] | + + + | Home Phone [...] Team Providers + +------+ + | Care Worship Director Name | Role | Phone | [...] [address] | | | | | [place], | [place], | | | | | [place] [address] | [place] [address] | | | | | [phone] | [phone] | | | | | | | [...] W | | | | | | [place], | | | | | | [place] [address] | | | | | | [phone] | | | | | | | | +--------+ + + + + | 11/20/ | Implant | Cardiology | Daljit Singletary, | Remote Device | | 2018 | Monitor | | [facility] | Interrogation | | | | | [place], | (Primary Dx); | | | | | [place] [address] | Presence of | | | | | [phone] | permanent cardiac | | | | [...]
--- OUTSIDE RECORDS SUMMARY | ~2019-10-04 | XMS | Encounter Summary ---
Demographics + + + | Address | [address] | | | [place] [address] | + + + | Home Phone [...] | + + +---------+ + | Maria sIabel Sanchez | ECON | Unknown | | + + +---------+ + Care Team Providers + +------+ + | Care Pin Sticker Name | Role | Phone | + [...] + + | 07/12/ | Office | [facility] | Michael Amanda, | Preventative health | | 2013 | Visit | MEDICINE [place] | DO [address] | care (Primary Dx); | | | | [address] | [place], [place] | Prostate cancer | | | | [place], [place] | [address] | screening; | | | | [address] | | Hypercholesterolemia | | | | [phone] | | ; Hypertension; | | | [...] clear cause was found. He has seen photographic equipment assembler and has a rechec k plan. Possible [...] and benzodiazepines and marinol potentially dangerous combination. Hpam ent will continue seeing his pain physician. [...] W | | | | | | [place], | | | | | | [place] [address] | | | | | | [phone] | | | | | | | | +--------+ + + + + | 11/20/ | Implant | Cardiology | Daljit Singletary, | Remote Device | | 2019 | Monitor | | MD Sim [place] | Interrogation | | | | | [place], | (Primary Dx); | | | | | [place] [address] | Presence of | | | | | [phone] | permanent cardiac | | | | [...] - Primary Routine general medical examination at [facility] | | care facility | + + [...]
--- OUTSIDE RECORDS SUMMARY | ~2019-10-04 | XMS | Encounter Summary ---
Demographics + + + | Address | [address] | | | [place] [address] | + + + | Home Phone [...] Providers + +------+ + | Care Wood Crew Supervisor Name | Role | Phone | + +------+ + | Kirk French MD | PCP | | + +------+ + Encounter Details +--------+ + + + + | Date | Type | Department | Care Team | Description | +--------+ + + + + | 12/24/ | Anesthesia | [facility] | Jarett Barakat | | | 2018 | Event | MED CTR MP INTRA OP | P, MD [address] | | | | | [address] | [address] [place], [place] | | | | | [place], [place] | [address] | | | | | [address] | [phone] | | | | | [phone] | | | | | | | Arthur Wesley, | | | | | | [address] | | | | | | [place], [place] | | | | | | [address] | | | | | | | [...] 12/24/17 1435 by | | eral | [id number] catheter system; | Desmond Teresa RN | [...] W | | | | | | [place], | | | | | | [place] [address] | | | | | | [phone] | | | | | | | | +--------+ + + + + | 11/20/ | Implant | Cardiology | Daljit Singletary, | Remote Device | | 2018 | Monitor | | [facility] | Interrogation | | | | | [place], | (Primary Dx); | | | | | [place] [address] | Presence of | | | | | [phone] | permanent cardiac | | | | [...]
--- OUTSIDE RECORDS SUMMARY | ~2019-10-04 | XMS | Encounter Summary ---
Demographics + + + | Address | [address] | | | [place] [address] | + + + | Home Phone [...] Team Providers + +------+ + | Care External Grinder Name | Role | Phone | [...] [address] | | | | | [place], | [place], | | | | | [place] [address] | [place] [address] | | | | | [phone] | [phone] | | | | | | | [...] W | | | | | | [place], | | | | | | [place] [address] | | | | | | [phone] | | | | | | | | +--------+ + + + + | 11/20/ | Implant | Cardiology | Daljit Singletary, | Remote Device | | 2018 | Monitor | | [address] [facility] | Interrogation | | | | | [place], | (Primary Dx); | | | | | [place] [address] | Presence of | | | | | [phone] | permanent cardiac | | | | [...]
--- OUTSIDE RECORDS SUMMARY | ~2019-10-04 | XMS | Encounter Summary ---
Demographics + + + | Address | [address] | | | [place] [address] | + + + | Home Phone [...] Providers + +------+ + | Care Head Of Data Name | Role | Phone | + +------+ + PCP | Unavailable | + +------+ + Encounter Details +--------+ + + + + | Date | Type | Department | Care Team | Description | +--------+ + + + + | 09/13/ | [facility] | [facility] | Jonathan, | | | 2009 | Encounter | MED CTR EMERGENCY | Martell Cr MD [address] | | | | | CENTER [address] | [place] | | | | | [place] | [place] [address] | | | | | [address] | [phone] | | | | | [phone] | | | +--------+ + + + [...] | | | | | | [place], | | | | | | [place] [address] | | | | | | [phone] | | | | | | | | +--------+ + + + + | 11/20/ | Implant | Cardiology | Daljit Singletary, | Remote Device | | 2019 | Monitor | | MD Chiquis Oro | Interrogation | | | | | [place], | (Primary Dx); | | | | | [place] [address] | Presence of | | | | | [phone] | permanent cardiac | | | | [...]
--- OUTSIDE RECORDS SUMMARY | ~2019-10-04 | XMS | Encounter Summary ---
Demographics + + + | Address | [address] | | | [place] [address] | + + + | Home Phone [...] Team Providers + +------+ + | Care Margin Clerk Name | Role | Phone | [...] Provider Unknown | | | | | [place], [place] | [phone] | | | | | [address] | | | | | | [phone] | | | +--------+ + + + [...] + + + +---------+ + + | [place]-3 Fatty | CAPS, one capsule by | [...] | | | | | | | #[id number], exp 07/2016 | | | | | [...] | | | | | | [place] [address] | | | | | | [phone] | | | | | | | | +--------+ + + + + | 11/20/ | Implant | Cardiology | Daljit Singletary, | Remote Device | | 2018 | Monitor | | MD Chiquis [address]ro | Interrogation | | | | | [place], | (Primary Dx); | | | | | [place] [address] | Presence of | | | | | [phone] | permanent cardiac | | | | [...]
--- OUTSIDE RECORDS SUMMARY | ~2019-10-04 | XMS | Encounter Summary ---
Demographics + + + | Address | [address] | | | [place] [address] | + + + | Home Phone [...] Team Providers + +------+ + | Care Integrated Circuit Layout Designer Name | Role | Phone | [...] + | 02/16/ | Telephone | [facility] | Silvia, | Other (concerned | | 2012 | | CARDIOLOGY [address] | PARISA [place] [address] | about palpitations) | | | | [place], | [place], | | | | | [place] [address] | [place] [address] | | | | | [phone] | [phone] | | | | | | | [...] | | | | | | [place], | | | | | | [place] [address] | | | | | | [phone] | | | | | | | | +--------+ + + + + | 11/20/ | Implant | Cardiology | Daljit Singletary, | Remote Device | | 2018 | Monitor | | [facility] | Interrogation | | | | | [place], | (Primary Dx); | | | | | [place] [address] | Presence of | | | | | [phone] | permanent cardiac | | | | [...]
--- OUTSIDE RECORDS SUMMARY | ~2019-10-04 | XMS | Encounter Summary ---
Demographics + + + | Address | [address] | | | [place] [address] | + + + | Home Phone [...] Team Providers + +------+ + | Care Extrusion Process Operator Name | Role | Phone | + +------+ + | Michael Amanda DO | PCP | | + +------+ + Encounter Details +--------+ + + + + | Date | Type | Department | Care Team | Description | +--------+ + + + + | 01/30/ | Hospital | [facility] | Jay Gambino MD | | | 2012 - | Encounter | HEART MED CTR | [address] | | | | | CARDIAC TELEMETRY | [address] [place], | | | 01/31/ | | [address] | [place] [address] | | | 2012 | | [place] | [phone] | | | | | [address] | | | | | | [phone] | | | +--------+ + + + [...] 1960 ADMISSION DATE: 01/30/2013 DISCHARGE DATE: 01/31/2013 [id number] / [id number] ADMITTING DIAGNOSES: 1. Symptomatic PVCs. 2. Sinus [...] 150, 1 to 2 tabs daily. 10. [place]-3 fatty acids 1000 mg b.i.d. MOE GAY ADM:01/30/13 [id number] 01/31/13 [place] DISCHARGE SUMMARY [id number] [facility] Carmela Cuevas PAC B YANCEY [facility] MD Meena Pleitez THIS REPORT IS CONFIDENTIAL AND NOT TO BE RELEASED WITHOUT PROPER AUTHORIZATION. [facility] 11. Valacyclovir 500 mg daily. B. New medication added: Diltiazem CD 180 a day. FOLLOWUP: The patient has a followup appointment on 03/02/2013 at 10:[address] Niles meza at the [facility], [address]. No heavy lifting or driving times 48 hours. YONAA Barlow MD A P [facility] #[id number] cc: MD Carmela Pleitez PA-C Electronically Signed 02/06/13 1616 LAKESHIA Barlow Electronically Signed 02/20/13 0731 Jay Gambino MD MOE GAY ADM:01/30/13 [id number] 01/31/13 [place] DISCHARGE SUMMARY [id number] [facility] LAKESHIA Barlow B [facility] Jay Gambino MD R THIS REPORT IS CONFIDENTIAL AND NOT TO BE RELEASED WITHOUT PROPER AUTHORIZATION.Electronica lly signed by Jael Brown at 02/20/2013 7:31 AM FRANCYZzCarmela Moncada - 02/01/20 13 8:44 AM PDT PATIENT NAME: MOE GAY Sex/Age: M / 52Y : 1960 ADMISSION DATE: 01/30/2013 DISCHARGE DATE: 01/31/2013 [id number] / [id number] ADMITTING DIAGNOSES: 1. Symptomatic PVCs. 2. Sinus [...] 150, 1 to 2 tabs daily. 10. [place]-3 fatty acids 1000 mg b.i.d. MOE GAY ADM:01/30/13 [id number] 01/31/13 [place] DISCHARGE SUMMARY [id number] [facility] LAKESHIA Barlow B YANCEY [facility] MD Meena Pleitez THIS REPORT IS CONFIDENTIAL AND NOT TO BE RELEASED WITHOUT PROPER AUTHORIZATION. [facility] 11. Valacyclovir 500 mg daily. B. New medication added: Diltiazem CD 180 a day. FOLLOWUP: The patient has a followup appointment on 03/02/2013 at 10:[address] Niles meza at the [facility], [address]. No heavy lifting or driving times 48 hours. YOANA Barlow MD A P [facility] #[id number] cc: MD Carmela Pleitez PA-C Electronically Signed 02/06/13 1616 LAKESHIA Barlow MOE GAY ADM:01/30/13 [id number] 01/31/13 [place] DISCHARGE SUMMARY [id number] [facility] LAKESHIA Barlow ES B [facility] Jay Gambino MD R THIS REPORT [...] | | | | | | [place] [address] | | | | | | [phone] | | | | | | | | +--------+ + + + + | 11/20/ | Implant | Cardiology | Daljit Singletary, | Remote Device | | 2019 | Monitor | | [facility] | Interrogation | | | | | [place], | (Primary Dx); | | | | | [place] [address] | Presence of | | | | | [phone] | permanent cardiac | | | | [...] + | [facility] | [address] | [place] [address] | | | [facility] | [...] + + | YESSY JONES | [address] | [place] [address] | | | [facility] | [...] [place] | 65 - 99 mg/dL | [facility] | | | | Diabetes [...] + + | YESSY JONES | [address] | [place] [address] | | | [facility] | | | | | LABORATORY | | | | + + + + + | YESSY JONES | | | | | [facility] | | | | | LABORATORY | | | | + + + + + documented in this encounter Visit Diagnoses Not on filedocumented in this encounter"
--- OUTSIDE RECORDS SUMMARY | ~2019-10-04 | XMS | Encounter Summary ---
Demographics + + + | Address | [address] [place] [address] | | | [place] [address] | + + + | Home Phone [...] [place] | | | | | [address] | | + + + + + Care Team Providers + +------+ + | Care Reading Aide Name | Role | Phone | [...] | | 2019 | | Center at [facility] [address] | Gastroenterology | Gastroenterology | | | | ILA Tremayne Crane | | | | | | Mailcode: [place] | | | | | | [facility] | | | | | | [place] [address] | | | | | | [place], [place] | | | | | | [address] | | | | | | [phone] | | | +--------+ + + + [...]
--- OUTSIDE RECORDS SUMMARY | ~2019-10-04 | XMS | Encounter Summary ---
Demographics + + + | Address | [address] | | | [place] [address] | + + + | Home Phone [...] | Organization | [facility] | | | and [...] Providers + +------+ + | Care Logistics Operations Director Name | Role | Phone | [...] W | | | | | [place], | [place], | | | | | [place] [address] | [place] [address] | | | | | [phone] | [phone] | | | | | | | [...] | | | | | | [place] [address] | | | | | | [phone] | | | | | | | | +--------+ + + + + | 11/20/ | Implant | Cardiology | Daljit Singletary, | Remote Device | | 2019 | Monitor | | MD [address] [facility] | Interrogation | | | | | [place], | (Primary Dx); | | | | | [place] [address] | Presence of | | | | | [phone] | permanent cardiac | | | | [...] St | [place] | | | [facility] | | [address] | | | - LABORATORY | | [...] | | | LAB | | | [place], | | | | | | External [...] + | [address] | [address] | [place] | | | [facility] | | [address] | | | - LABORATORY | | [...]
--- OUTSIDE RECORDS SUMMARY | ~2019-10-04 | XMS | Encounter Summary ---
Demographics + + + | Address | [address] | | | [place] [address] | + + + | Home Phone [...] Team Providers + +------+ + | Care Sign Shop Supervisor Name | Role | Phone [...] + + | 07/12/ | Office | [facility] | Michael Amanda, | Preventative health | | 2013 | Visit | MEDICINE [place] | DO [address] | care (Primary Dx); | | | | [address] | [place], [place] | Prostate cancer | | | | [place], [place] | [address] | screening; | | | | [address] | | Hypercholesterolemia | | | | [phone] | | ; Hypertension; | | | [...] clear cause was found. He has seen human intelligence and has a rechec k plan. Possible [...] W | | | | | | [place], | | | | | | [place] [address] | | | | | | [phone] | | | | | | | | +--------+ + + + + | 11/20/ | Implant | Cardiology | Daljit Singletary, | Remote Device | | 2019 | Monitor | | MD [address] [place] | Interrogation | | | | | [place], | (Primary Dx); | | | | | [place] [address] | Presence of | | | | | [phone] | permanent cardiac | | | | [...] - Primary Routine general medical examination at [facility] | | care facility | + + [...]
--- OUTSIDE RECORDS SUMMARY | ~2019-10-04 | XMS | Encounter Summary ---
Demographics + + + | Address | [address] | | | [place] [address] | + + + | Home Phone [...] + + +---------+ + | Maria Isabel Snachez | ECON | Unknown | | + + +---------+ + Care Team Providers + +------+ + | Care Drum Maker Name | Role | Phone | [...] + + | 07/13/ | Telephone | [facility] | Kirk French | Referral Question | | 2019 | | [facility] | MD [address] | | | | | PRIMARY CARE [address] | | | | | [address] | [place] [address] | | | | | [place], [place] | [phone] | | | | | [address] | | | | | | [phone] | | | +--------+ + + + [...] | | | | | | [place] [address] | | | | | | [phone] | | | | | | | | +--------+ + + + + | 11/20/ | Implant | Cardiology | Daljit Singletary, | Remote Device | | 2018 | Monitor | | MD [address] [place] | Interrogation | | | | | [place], | (Primary Dx); | | | | | [place] [address] | Presence of | | | | | [phone] | permanent cardiac | | | | [...]
--- OUTSIDE RECORDS SUMMARY | ~2019-10-04 | XMS | Encounter Summary ---
Demographics + + + | Address | [address] | | | [place] [address] | + + + | Home Phone [...] Team Providers + +------+ + | Care Signals Analyst Name | Role | Phone | [...] | | | | CENTER [address] | [place] | (Primary Dx) | | 07/28/ | | [place] | [address] | | | 2017 | | [address] | | | | | | [phone] | | | +--------+ + + + [...] sent through Care Everywhere.Chest Pain, Non cardiac (Polish)documented in this encounter Medications at Time of [...] + + + +---------+ + + | Potrero-3 Fatty | CAPS, one capsule by | [...] | | | | | | [place] [address] | | | | | | [phone] | | | | | | | | +--------+ + + + + | 11/20/ | Implant | Cardiology | Daljit Singletary, | Remote Device | | 2018 | Monitor | | MD [address] [place] [address] | Interrogation | | | | | [facility] [place], | (Primary Dx); | | | | | [place] [address] | Presence of | | | | | [phone] | permanent cardiac | | | | [...] W?MRN: | | | | | | [id number] | | | [id number] | | | his | | | [...] | | | ent/60 | | | [id number] | | | -5586- | | | [...] | | | St. | | | [place] | | | y | | | [...] | | | ext. | | | [address] | | | or go | | [...] | | | M.D. | | | Customer Account Manager | | | al | | | [...] | | | | | | [employer] | | | | | [...] + | [facility] | [address] | [place] | [phone] | | [facility] | | [address] | | | - LABORATORY | | [...] | | | | | | [facility] | | | | | | MEDICAL [...] | | | FILTRATION | mL/min/1.73m2 | [facility] | | | NIGERIAN | RATE,ESTIMATED | | MEDICAL | | | | mL/min/1.75o6Zlmx than | | CENTER - | | [...] | | | | | mg/dL | [facility] | | | | | [...] [address] | [place] | [phone] | | [facility] | | [address] | | | - LABORATORY | | [...] + | [facility] | [address] | [place] | [phone] | | [facility] | | [address] | | | - LABORATORY | | [...] | | | | ANGELA MARADIAGA MD ([id number]) | | | | | | on [...] | | | | | | [place]AL[place]. Shake well., | | | | | [...]
--- OUTSIDE RECORDS SUMMARY | ~2019-10-04 | XMS | Encounter Summary ---
Demographics + + + | Address | [address] | | | [place] [address] | + + + | Home Phone [...] Team Providers + +------+ + | Care Leather Belt Shaper Name | Role | Phone | + [...] | | | Procedures | | [place] | | | | | [place] | | [address] Phone: | | | | | CYSTO/URETER | | [phone] | | | | | O | | Fax: | | | | | W/LITHOTRIPS | | [phone] | | | | | Y &INDWELL [...] | | | | | [address] | [place] | | | | | [place] | [address] | | | | | [address] | | | | | | [phone] | | | +--------+ + + + [...] +----+---+ + + | | 0 | [place] | | | | 8 | 43-degrees | | | | 2 | | | | | 7 | | | +----+---+ + + | | 0 | First | | | | 8 | Inc/Proc St | | | | 2 | | | | | 8 | | | +----+---+ + + | | 0 | [place] off | | | | 9 | [...] 04/13/19 1219 by | | eral | yofe-lel-mqboui catheter system; | Dominga Steen RN | [...] | | | | | | [place] [address] | | | | | | [phone] | | | | | | | | +--------+ + + + + | 11/20/ | Implant | Cardiology | Daljit Singletary, | Remote Device | | 2018 | Monitor | | MD [place]iqu[place]ro | Interrogation | | | | | [place], | (Primary Dx); | | | | | [place] [address] | Presence of | | | | | [phone] | permanent cardiac | | | | [...] 8:23 | | | | | Starting [facility] 04/13/19 at 0823, | | AM [...]
--- OUTSIDE RECORDS SUMMARY | ~2019-10-04 | XMS | Encounter Summary ---
Demographics + + + | Address | [address] | | | [place] [address] | + + + | Home Phone [...] Providers + +------+ + | Care Cafeteria Associate Name | Role | Phone | + +------+ + PCP | Unavailable | + +------+ + Encounter Details +--------+ + + + + | Date | Type | Department | Care Team | Description | +--------+ + + + + | 06/12/ | [facility] | [facility] | Hunter Antunez, | | | 2007 - | Encounter | MED CTR ICU [address] | MD [address] | | | | | [place], | [place] | | | 06/15/ | | [place] [address] | [address] | | | 2007 | | [phone] | | | +--------+ + + + [...] | | | | | | [place] [address] | | | | | | [phone] | | | | | | | | +--------+ + + + + | 11/20/ | Implant | Cardiology | Daljit Singletary, | Remote Device | | 2019 | Monitor | | MD Chiquis Oro | Interrogation | | | | | [facility] [place], | (Primary Dx); | | | | | [place] [address] | Presence of | | | | | [phone] | permanent cardiac | | | | [...]
--- OUTSIDE RECORDS SUMMARY | ~2019-10-04 | XMS | Encounter Summary ---
Demographics + + + | Address | [address] | | | [place] [address] | + + + | Home Phone [...] + +------+ + | Care Human Resources Hr Generalist Name | Role | Phone | + [...] | | | | [place] | [address] | | | | | [address] | | | | | | [phone] | | | +--------+ + + + [...] W | | | | | | [place], | | | | | | [place] [address] | | | | | | [phone] | | | | | | | | +--------+ + + + + | 11/20/ | Implant | Cardiology | Daljit Singletary, | Remote Device | | 2018 | Monitor | | MD [place]iquis Oro | Interrogation | | | | | [facility], | (Primary Dx); | | | | | [place] [address] | Presence of | | | | | [phone] | permanent cardiac | | | | [...]
--- OUTSIDE RECORDS SUMMARY | ~2019-10-04 | XMS | Encounter Summary ---
Demographics + + + | Address | [address] | | | [place] [address] | + + + | Home Phone [...] Team Providers + +------+ + | Care Finger Buffs Assembler Name | Role | Phone | [...] | | PVCs | [place] | [address] | | | | | Procedures | [address] | [address] | | | | | HI OFFICE | [place] | [place] | | | | | CONSULTATION | [place], | [address] Phone: | | | | | NEW/ESTAB | [place] | [phone] | | | | | PATIENT 40 | [address] | Fax: | | | | | MIN | Phone: | [phone] | | | | | | [phone] | | | | | | | Fax: | | | | | | | [phone] | | +--------+--------+ + + + + Encounter Details +--------+---------+ + + + | Date | Type | Department | Care Team | Description | +--------+---------+ + + + | 11/30/ | Office | [facility] | Jay Gambino MD | Symptomatic PVCs | | 2015 | Visit | [facility] [place] | [address] | (Primary Dx) | | | | HI4 [address] | [address] [place], | | | | | [facility] [address] [place] | [place] [address] | | | | | [address] | [phone] | | | | | [phone] | | | +--------+---------+ + + + [...] Gambino MD - 11/30/2014 5:37 PM PST [facility] [address] [place] [address] Patient Name: Moe Sanchez Date: 1960 Date [...] luz marcos as needed for Chest pain. [place]-3 Fatty Acids (SALMON OIL-1000 PO) CAPS, one [...] (1980 1984); Hypoglycemia; Drug addiction in remission ([facility]); HTN (hypertension); Hypercholesterolemia; Bipolar 1 disorder [...] were not detected in the editing p Sepioress. Should you have any questions or concerns, [...] | | | | | | [place], | | | | | | [place] [address] | | | | | | [phone] | | | | | | | | +--------+ + + + + | 11/20/ | Implant | Cardiology | Daljit Singletary, | Remote Device | | 2018 | Monitor | | MD [address] [place] [address] | Interrogation | | | | | [place], | (Primary Dx); | | | | | [place] [address] | Presence of | | | | | [phone] | permanent cardiac | | | | [...]
--- OUTSIDE RECORDS SUMMARY | ~2019-10-04 | XMS | Encounter Summary ---
Demographics + + + | Address | [address] | | | [place] [address] | + + + | Home Phone [...] Providers + +------+ + | Care Technical Services Analyst Name | Role | Phone | [...] 2019 | | GASTROENTEROLOGY | [address], [place] | Syndrome | | | | [address] [place] | [address] [place], [place] | | | | | 210 [place], [place] | [address] | | | | | [address] | | | | | | [phone] | | | +--------+ + + + [...] | | | | | | [place] [address] | | | | | | [phone] | | | | | | | | +--------+ + + + + | 11/20/ | Implant | Cardiology | Daljit Singletary, | Remote Device | | 2018 | Monitor | | MD [place]iqu[place] Oro | Interrogation | | | | | [facility] [place], | (Primary Dx); | | | | | [place] [address] | Presence of | | | | | [phone] | permanent cardiac | | | | [...]
--- OUTSIDE RECORDS SUMMARY | ~2019-10-04 | XMS | Clinical Summary ---
Demographics + + + | Address | [address] | | | [place] [address] | + + + | Home Phone | | + + + | Preferred Language | Unknown | + + + | Marital Status | | + + + | Yazdanism Affiliation | 1013 | + + + | Race | Unknown | + + + | Ethnic Group | Unknown | + + + Author + + + | Author | [facility] [employer] (Historical as of | | | 07-08-19) | + + + | Organization | [facility] (Historical as of | | | 07-08-19) [...] Team Providers + +------+ + | Care Bariatric Physician Name | Role | Phone | [...] + | AUTO INSURANCE | AUTO | [id number] | | | | | | INSURA | | | | | | | NCE | | | | | | | GENERI | | | | | | | C | | | | | + +--------+ +------+-------+ + | AUTO INSURANCE | AUTO | [id number] | | | | | | INSURA | [id number] | | | | | | NCE | | | | | | | GENERI | | | | | | | C | | | | | + +--------+ +------+-------+ + | MEDICARE | MEDICA | [id number] | | | [address] | | | RE | | | | [place], [place] [address] | | | IP-OP | | | | | + +--------+ +------+-------+ + | [facility] | [place] | [id number] | | | | | | | [...] | Self | [birth year] | Home: | [address] | | | al/Fam | | 9 | [address]- | [address] [place], [place] | | | roxanne | | | [address] | [address] | + +--------+ +--------+ + + | AMILCAR GAY | Third | Self | [birth year] | Home: | [address] | | | Democrat | | 9 | +- | [place], [place] | | | Liabil | | | [address] | [address] | | | ity | | | | | + +--------+ +--------+ + + | AMILCAR GAY | Third | Self | [birth year] | Home: | [address] | | | Democrat | | 1960 | +- | [place], [place] | | | Liabil | | | [address] | [address] | | | ity | | | | | + +--------+ +--------+ + +
--- OUTSIDE RECORDS SUMMARY | ~2019-10-04 | XMS | Encounter Summary ---
Demographics + + + | Address | [address] | | | [place] [address] | + + + | Home Phone [...] Team Providers + +------+ + | Care Meal Packer Name | Role | Phone | [...] | 01/04/ | Telephone | [facility] | Emmanuel Daniel MD | Other | | 2019 | | GASTROENTEROLOGY | [address], [place] | | | | | [address] [place] | [address] [place], [place] | | | | | 210 [place], [place] | [address] | | | | | [address] | | | | | | [phone] | | | +--------+ + + + [...] | | | | | | [place] [address] | | | | | | [phone] | | | | | | | | +--------+ + + + + | 11/20/ | Implant | Cardiology | Daljit Singletary, | Remote Device | | 2018 | Monitor | | MD [address] [place] [address] | Interrogation | | | | | [address] [place], | (Primary Dx); | | | | | [place] [address] | Presence of | | | | | [phone] | permanent cardiac | | | | [...]
--- OUTSIDE RECORDS SUMMARY | ~2019-10-04 | XMS | Encounter Summary ---
Demographics + + + | Address | [address] | | | [place] [address] | + + + | Home Phone [...] Providers + +------+ + | Care Foot Drill Operator Name | Role | Phone | [...] | SLEEP DISORDER [address] | [address] | Dx) | | | | [address] [place] | [place] | | | | | [place] [address] | [address] | | | | | [phone] | | | +--------+---------+ + + + [...] pillows obtained from: [facility] [place] pressure is: 13 cm CPAP download shows [...] to go to [facility] [place] to have them download his memory card. I will readjust his pressure, if necessary. I will call him with the results. He is to work toward wearing his CPAP 100% of the time he is asleep. I will follow up again in 1 month, sooner prn. Fifteen minutes were spent [id number], wi th the majority of time spent [...] W | | | | | | [place], | | | | | | [place] [address] | | | | | | [phone] | | | | | | | | +--------+ + + + + | 11/20/ | Implant | Cardiology | Daljit Singletary, | Remote Device | | 2018 | Monitor | | [address] [facility] | Interrogation | | | | | [place], | (Primary Dx); | | | | | [place] [address] | Presence of | | | | | [phone] | permanent cardiac | | | | [...]
--- OUTSIDE RECORDS SUMMARY | ~2019-10-04 | XMS | Encounter Summary ---
Demographics + + + | Address | [address] | | | [place] [address] | + + + | Home Phone [...] Team Providers + +------+ + | Care Geophysics Scientist Name | Role | Phone | [...] | RN | | | | | [place], | | | | | | [place] [address] | | | | | | [phone] | | | +--------+ + + + [...] | | | | | | [place], | | | | | | [place] [address] | | | | | | [phone] | | | | | | | | +--------+ + + + + | 11/20/ | Implant | Cardiology | Daljit Singletary, | Remote Device | | 2019 | Monitor | | [address] | Interrogation | | | | | [place], | (Primary Dx); | | | | | [place] [address] | Presence of | | | | | [phone] | permanent cardiac | | | | [...]
--- OUTSIDE RECORDS SUMMARY | ~2019-10-04 | XMS | Encounter Summary ---
Demographics + + + | Address | [address] | | | [place] [address] | + + + | Home Phone [...] Providers + +------+ + | Care Day Camp Counselor Name | Role | Phone [...] unspecified | [address] | [address] | | | | | type | [address] | [place], | | | | | Procedures | [place], | [place] | | | | | [place] | [place] [address] | [address] | | | | | Stress Test | Phone: | Phone: | | | | | (Vasodilator | [phone] | [phone] | | | | | ) CHG | Fax: | Fax: | | | | | MYOCARDIAL | [phone] | [phone] | | | | | SPECT | | | | | | | MULTIPLE | | | | | | | STUDIES PA | | | | | | | CV STRS TST | | | | | | | XERS&/OR RX | | | | | | | CONT ECG W/O | | | | | | | I&R PA | | | | | | [...] unspecified | [address] | [address] | | | | | type | [address] | [place], | | | | | Procedures | [place], | [place] | | | | | [place] | [place] [address] | [address] | | | | | Stress Test | Phone: | Phone: | | | | | (Vasodilator | [phone] | [phone] | | | | | ) CHG | Fax: | Fax: | | | | | MYOCARDIAL | [phone] | [phone] | | | | | SPECT | | | | | | | MULTIPLE | | | | | | | STUDIES PA | | | | | | | CV STRS TST | | | | | | | XERS&/OR RX | | | | | | | CONT ECG W/O | | | | | | | I&R PA | | | | | | [...] + + | 07/21/ | Hospital | [facility] | Daljit Singletary, | Chest pain, | | 2018 | Encounter | MED CTR NUCLEAR | MD [address] | unspecified type | | | | MEDICINE [address] | [address] [place], | | | | | [place] | [place] [address] | | | | | [place] [address] | [phone] | | | | | [phone] | | | | | | | Powerhouse Mechanic SupervisorPavel | | +--------+ + + + + [...] + + + +---------+ + + | [place]-3 Fatty | CAPS, one capsule by | [...] | | | | | | [place] [address] | | | | | | [phone] | | | | | | | | +--------+ + + + + | 11/20/ | Implant | Cardiology | Daljit Singletary, | Remote Device | | 2019 | Monitor | | [address] [facility] | Interrogation | | | | | [place], | (Primary Dx); | | | | | [place] [address] | Presence of | | | | | [phone] | permanent cardiac | | | | [...] | | | | | doctor, Starting [facility] 07/21/18 at | | | | [...] | | | | | | Starting [facility] 07/21/18 at 0822, For | | | | | | | 1 dose, Nuclear Medicine | | | | | | + +-------+ + +---+---+ +---+---+ | | | +---+---+ documented in this encounter"
--- OUTSIDE RECORDS SUMMARY | ~2019-10-04 | XMS | Encounter Summary ---
Demographics + + + | Address | [address] | | | [place] [address] | + + + | Home Phone [...] Providers + +------+ + | Care Data Developer Name | Role | Phone | [...] Eva ROUSE | | | | | [place], [place] | [address] | | | | | [address] | [place] [address] | | | | | [phone] | [phone] | | | | | | | [...] W | | | | | | [place], | | | | | | [place] [address] | | | | | | [phone] | | | | | | | | +--------+ + + + + | 11/20/ | Implant | Cardiology | Daljit Singletary, | Remote Device | | 2018 | Monitor | | [address] | Interrogation | | | | | [place], | (Primary Dx); | | | | | [place] [address] | Presence of | | | | | [phone] | permanent cardiac | | | | [...] | EXTERNAL LAB: [facility] | Routin | 10/18/2017 | | Results [...] in this encounter Results External Lab: [facility] (10/18/2017 10:58 AM PST) + + + [...]
--- OUTSIDE RECORDS SUMMARY | ~2019-10-04 | XMS | Encounter Summary ---
Demographics + + + | Address | [address] | | | [place] [address] | + + + | Home Phone [...] Team Providers + +------+ + | Care Nanotechnologist Name | Role | Phone | + [...] + | 11/26/ | Telephone | [facility] | [place], | Appointment (Needs | | 2017 | | CARDIOLOGY [address] | [place] [address] | rescheduled) | | | | [place], | [place], | | | | | [place] [address] | [place] [address] | | | | | [phone] | [phone] | | | | | | | [...] W | | | | | | [place], | | | | | | [place] [address] | | | | | | [phone] | | | | | | | | +--------+ + + + + | 11/20/ | Implant | Cardiology | Daljit Singletary, | Remote Device | | 2018 | Monitor | | [address] [place] | Interrogation | | | | | [place], | (Primary Dx); | | | | | [place] [address] | Presence of | | | | | [phone] | permanent cardiac | | | | [...]
--- OUTSIDE RECORDS SUMMARY | ~2019-10-04 | XMS | Encounter Summary ---
Demographics + + + | Address | [address] | | | [place] [address] | + + + | Home Phone [...] Team Providers + +------+ + | Care Obiee Architect Name | Role | Phone | + +------+ + PCP | Unavailable | + +------+ + Encounter Details +--------+ + + + + | Date | Type | Department | Care Team | Description | +--------+ + + + + | 06/23/ | [facility] | [facility] | Arthur Page MD | | | 2007 - | Encounter | MED CTR MED ONC | [address] [facility] | | | | | [address] [place] | [place] | | | 06/25/ | | [place] [address] | [address] | | | 2007 | | [phone] | | | +--------+ + + + [...] | | | | | | [place] [address] | | | | | | [phone] | | | | | | | | +--------+ + + + + | 11/20/ | Implant | Cardiology | Daljit Singletary, | Remote Device | | 2019 | Monitor | | MD [address]iqu[address] | Interrogation | | | | | [place], | (Primary Dx); | | | | | [place] [address] | Presence of | | | | | [phone] | permanent cardiac | | | | [...]
--- OUTSIDE RECORDS SUMMARY | ~2019-10-04 | XMS | Encounter Summary ---
Demographics + + + | Address | [address] | | | [place] [address] | + + + | Home Phone [...] Team Providers + +------+ + | Care Grades 7 And 8 Visiting Teacher Name | Role | Phone | [...] + | 12/23/ | Telephone | [facility] | [place], | Lab Order (due for | | 2017 | | CARDIOLOGY [address] | Janeen, ABORIGINAL CEREMONIAL CELEBRANT [address] | fasting labs) | | | | [place], | [place], | | | | | [place] [address] | [place] [address] | | | | | [phone] | [phone] | | | | | | | [...] [place], | | | | | | [place] [address] | | | | | | [phone] | | | | | | | | +--------+ + + + + | 11/20/ | Implant | Cardiology | Daljit Singletary, | Remote Device | 2018 | Monitor | | [facility] | Interrogation | | | | | [place], | (Primary Dx); | | | | | [place] [address] | Presence of | | | | | [phone] | permanent cardiac | | | | [...]
--- OUTSIDE RECORDS SUMMARY | ~2019-10-04 | XMS | Encounter Summary ---
Demographics + + + | Address | [address] | | | [place] [address] | + + + | Home Phone [...] Providers + +------+ + | Care Head Orthopedic Team Physician Name | Role | Phone | [...] abdominal | [address] | [address], | | | | | pain | [address] | [place] [address] | | | | | Chronic pain | [address] | [place], | | | | | syndrome | [place], [place] | [place] [address] | | | | | Procedures | [address] | Phone: | | | | | Office Visit | Phone: | [phone] | | | | | | [phone] | Fax: | | | | | | Fax: | [phone] | | | | | | [phone] | | +--------+--------+ + + + + Encounter Details +--------+---------+ + + + | Date | Type | Department | Care Team | Description | +--------+---------+ + + + | 12/02/ | Office | [facility] [place] | Emmanuel Daniel MD | Diarrhea, | | 2018 | Visit | GASTROENTEROLOGY | [address], [place] | unspecified type | | | | [address] [place] | [address] [place], [place] | (Primary Dx); Weight | | | | [address] [place], [place] | [address] | loss, | | | | [address] | | unintentional; | | | | [phone] | | Generalized | | | | [...] | | | | | | [place] [address] | | | | | | [phone] | | | | | | | | +--------+ + + + + | 11/20/ | Implant | Cardiology | Daljit Singletary, | Remote Device | | 2018 | Monitor | | MD [address] | Interrogation | | | | | [place], | (Primary Dx); | | | | | [place] [address] | Presence of | | | | | [phone] | permanent cardiac | | | | [...]
--- OUTSIDE RECORDS SUMMARY | ~2019-10-04 | XMS | Encounter Summary ---
Demographics + + + | Address | [address] | | | [place] [address] | + + + | Home Phone [...] Providers + +------+ + | Care Clinical Consultant Name | Role | Phone | + +------+ + PCP | Unavailable | + +------+ + Encounter Details +--------+ + + + + | Date | Type | Department | Care Team | Description | +--------+ + + + + | 08/02/ | Hospital | [facility] | | | | 2001 | Encounter | MED CTR EMERGENCY | | | | | | [place] [address] | | | | | | [place] | | | | | | [address] | | | | | | [phone] | | | +--------+ + + + [...] | | | | | | [place] [address] | | | | | | [phone] | | | | | | | | +--------+ + + + + | 11/20/ | Implant | Cardiology | Daljit Singletary, | Remote Device | | 2018 | Monitor | | [address] [facility] | Interrogation | | | | | [place] [place], | (Primary Dx); | | | | | [place] [address] | Presence of | | | | | [phone] | permanent cardiac | | | | [...]
--- OUTSIDE RECORDS SUMMARY | ~2019-10-04 | XMS | Encounter Summary ---
Demographics + + + | Address | [address] | | | [place] [address] | + + + | Home Phone [...] Providers + +------+ + | Care Digital Controls Technical Officer Name | Role | Phone [...] + + | 07/13/ | Telephone | [facility] | Kirk French | Referral Question | | 2019 | | [facility] | MD Brea [address] | | | | | [facility] | | | | | [address] | [place] [address] | | | | | [place], [place] | [phone] | | | | | [address] | | | | | | [phone] | | | +--------+ + + + [...] | | | | | | [place] [address] | | | | | | [phone] | | | | | | | | +--------+ + + + + | 11/20/ | Implant | Cardiology | Daljit Singletary, | Remote Device | | 2018 | Monitor | | MD Chiquis Oro | Interrogation | | | | | [facility], | (Primary Dx); | | | | | [place] [address] | Presence of | | | | | [phone] | permanent cardiac | | | | [...]
--- OUTSIDE RECORDS SUMMARY | ~2019-10-04 | XMS | Encounter Summary ---
Demographics + + + | Address | [address] | | | [place] [address] | + + + | Home Phone [...] Team Providers + +------+ + | Care Coat Fitter Name | Role | Phone | [...] | | | | CENTER [address] | [place] | (Primary Dx) | | 07/28/ | | [place] | [address] | | | 2017 | | [address] | | | | | | [phone] | | | +--------+ + + + [...] sent through Care Everywhere.Chest Pain, Non cardiac (Citizen Of [place])documented in this encounter Medications at Time of [...] + + + +---------+ + + | [place]-3 Fatty | CAPS, one capsule by | [...] | | | | | | [place] [address] | | | | | | [phone] | | | | | | | | +--------+ + + + + | 11/20/ | Implant | Cardiology | Daljit Singletary, | Remote Device | | 2018 | Monitor | | MD Sim [place] [address] | Interrogation | | | | | [facility] [place], | (Primary Dx); | | | | | [place] [address] | Presence of | | | | | [phone] | permanent cardiac | | | | [...] W?MRN: | | | | | | [id number] | | | [id number] | | | his | | | [...] | | | ent/60 | | | [id number] | | | -5586- | | | [...] | | | St. | | | Bivins | | | y | | | [...] | | | ext. | | | [address] | | | or go | | [...] | | | M.D. | | | Sheet Metal Foreman | | | al | | | [...] | | | | | | [employer] | | | | | [...] + | [facility] | [address] | [place] | [phone] | | [facility] | | [address] | | | - LABORATORY | | [...] | | | FILTRATION | mL/min/1.73m2 | [facility] | | | [place]ICAN | RATE,ESTIMATED | | MEDICAL | | | | mL/min/1.35v5Dvep than | | CENTER - | | [...] | | | | | mg/dL | [facility] | | | | | | [...] [address] | [place] | [phone] | | [facility] | | [address] | | | - LABORATORY | | [...] + | [facility] | [address] | [place] | [phone] | | [facility] | | [address] | | | - LABORATORY | | [...] | | | | ANGELA MARADIAGA MD ([id number]) | | | | | | on [...]
--- OUTSIDE RECORDS SUMMARY | ~2019-10-04 | XMS | Encounter Summary ---
Demographics + + + | Address | [address] | | | [place] [address] | + + + | Home Phone [...] Providers + +------+ + | Care Steward/Stewardess Second Name | Role | Phone | + [...] + + | 06/04/ | Hospital | [facility] | Sariah, | Cervical spinal | | 2016 | Encounter | MED CTR XRAY [address] | [place], VP [address]ETIC [address] | stenosis | | | | [place] | [id number] | | | | | [place] [address] | [place] [address] | | | | | [phone] | [phone] | | | | | | | [...] + + + +---------+ + + | [place]-3 Fatty | CAPS, one capsule by | [...] | | | | | | [place] [address] | | | | | | [phone] | | | | | | | | +--------+ + + + + | 11/20/ | Implant | Cardiology | Daljit Singletary, | Remote Device | | 2019 | Monitor | | MD [facility] | Interrogation | | | | | [place], | (Primary Dx); | | | | | [place] [address] | Presence of | | | | | [phone] | permanent cardiac | | | | [...]
--- OUTSIDE RECORDS SUMMARY | ~2019-10-04 | XMS | Encounter Summary ---
Demographics + + + | Address | [address] [place] [address] | | | [place] [address] | + + + | Home Phone [...] [place] | | | | | [address] | | + + + + + Care Team Providers + +------+ + | Care Fireperson Name | Role | Phone | + [...] | Center at [facility] [address] | MD [address] | | | | | [address] | [facility] [place] | | | | | Mailcode: Center | [address] | | | | | for Health and | [phone] | | | | | [facility], [facility] [address] | | | | | | [place], [place] | | | | | | [address] | | | | | | [phone] | | | +--------+ + + + [...]
--- OUTSIDE RECORDS SUMMARY | ~2019-10-04 | XMS | Encounter Summary ---
Demographics + + + | Address | [address] [place] [address] | | | [place] [address] | + + + | Home Phone [...] [place] | | | | | [address] | | + + + + + Care Team Providers + +------+ + | Care National Van Owner Operator Name | Role | Phone | [...] as of this encounter Progress Notes Interface, Analytical Lab Technician In - 07/19/2006 3:05 AM PDTCLINIC DATE: 06/13/2002 [facility] REFERRING PHYSICIAN: Eugene Vera D.O. [address] [place] [address] Mr. Sanchez is a new patient. He [...] proceed. Martell Allen M.D. ELIZABETH / KATTY [id number] / [id number] / [id number] / [id number] cc: Eugene Vera D.O. [address] [place] [id number] signed by Interface, Analytical Lab Technician In at 07/19/2006 3:0 5 AM PDTdocumented in this encounter Plan of Treatment Not on filedocumented as of this encounter Visit Diagnoses Not on filedocumented in this encounter
--- OUTSIDE RECORDS SUMMARY | ~2019-10-04 | XMS | Encounter Summary ---
Demographics + + + | Address | [address] | | | [place] [address] | + + + | Home Phone [...] Team Providers + +------+ + | Care Spike Machine Heater Name | Role | Phone | [...] + | 12/09/ | Telephone | [facility] | Emmanuel Daniel MD | Appointment (EGD, | | 2017 | | GASTROENTEROLOGY | [address], [place] | colon Rescheduled to | | | | [address] [place] | [address] [place] | December 24 due to | | | | [address] [place] | [address] | illness) | | | | [address] | | | | | | [phone] | | | +--------+ + + + [...] | | | | | | [place] [address] | | | | | | [phone] | | | | | | | | +--------+ + + + + | 11/20/ | Implant | Cardiology | Daljit Singletary, | Remote Device | | 2019 | Monitor | | MD [facility] | Interrogation | | | | | [place] [place], | (Primary Dx); | | | | | [place] [address] | Presence of | | | | | [phone] | permanent cardiac | | | | [...]
--- OUTSIDE RECORDS SUMMARY | ~2019-10-04 | XMS | Encounter Summary ---
Demographics + + + | Address | [address] | | | [place] [address] | + + + | Home Phone [...] Team Providers + +------+ + | Care Brass And Wind Instrument Repairer Name | Role | Phone [...] | disease involving | | | | [place], | [place], | ak chin coronary | | | | [place] [address] | [place] [address] | artery without | | | | [phone] | [phone] | angina pectoris | | | | [...] W | | | | | | [place], | | | | | | [place] [address] | | | | | | [phone] | | | | | | | | +--------+ + + + + | 11/20/ | Implant | Cardiology | Daljit Singletary, | Remote Device | | 2018 | Monitor | | [place] [facility] | Interrogation | | | | | 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
--- OUTSIDE RECORDS SUMMARY | ~2019-10-04 | XMS | Encounter Summary ---
Demographics + + + | Address | [address] | | | [place] [address] | + + + | Home Phone [...] Providers + +------+ + | Care Transportation Planning Technician Name | Role | Phone | [...] | | CARDIOLOGY [address] | Janeen ACCOUNT SUPPORT ANALYST [address] | | | | | [place], | [place], | | | | | [place] [address] | [place] [address] | | | | | [phone] | [phone] | | | | | | | [...] W | | | | | | [place], | | | | | | [place] [address] | | | | | | [phone] | | | | | | | | +--------+ + + + + | 11/20/ | Implant | Cardiology | Daljit Singletary, | Remote Device | | 2018 | Monitor | | MD [address] | Interrogation | | | | | [place], | (Primary Dx); | | | | | [place] [address] | Presence of | | | | | [phone] | permanent cardiac | | | | [...]
--- OUTSIDE RECORDS SUMMARY | ~2019-10-04 | XMS | Encounter Summary ---
Demographics + + + | Address | [address] | | | [place] [address] | + + + | Home Phone [...] Providers + +------+ + | Care Animal Trainer Supervisor Name | Role | Phone | [...] + | 03/07/ | Office | [facility] | [place], | SINUS BRADYCARDIA | | 2013 | Visit | CARDIOLOGY [address] | [place] [address] | (Primary Dx); | | | | [place], | [place], | Syncope; Symptomatic | | | | [place] [address] | [place] [address] | PVCs; Pacemaker - | | | | [phone] | [phone] | Medtronic - [id number] | | | [...] Sanchez Date: March 07, 2014 : 1960 Architecture Intern: Kailey Pruitt RN Device Choker Hooker:Medtronic Sense (mV) Impedance (?) Capture (V) Capture (ms) A Lead >5.60 402 1.500 0.09 RV Lead >31.36 522 2.00 0.09 LV Lead Battery Impedance (?): 528 Battery Voltage (V): 2.79 [place] Interval (ms): 147 AR Interval (ms): 217 VA Conduction: Mode Switch Events: 0 % of time: 0 -CASH OFFICE WORKER: <0.1% AP-CASH OFFICE WORKER: 0.1% -VS: 23.8% AP-VS: 76.1% CASH OFFICE WORKER: Magnetic Rate: 85 LINDA: 65 LEAH: [...] Pruitt RN 03/07/2014 12:00 Janeen Mccollum AR TOE POUNDER - 03/07/2014 11:07 AM PDT PATIENT NAME: [...] headaches. He paulino d been seen at [facility] a couple times with chest pain [...] needed for Chest pain. 25 tablet 12 [place]-3 Fatty Acids (SALMON OIL-1000 PO) CAPS, one capsule by mouth daily twice daily ONE TOUCH DELICA LANCETS [facility] Check glucose as needed [...] Sanchez Date: March 07, 2014 : 1960 Architecture Intern: Kailey Pruitt RN Device Choker Hooker:[employer] Sense (mV) Impedance (?) Capture (V) Capture (ms) A Lead >5.60 402 1.500 0.09 RV Lead >31.36 522 2.00 0.09 LV Lead Battery Impedance (?): 528 Battery Voltage (V): 2.79 [place] Interval (ms): 147 AR Interval (ms): 217 VA Conduction: Mode Switch Events: 0 % of time: 0 -CASH OFFICE WORKER: <0.1% AP-CASH OFFICE WORKER: 0.1% -VS: 23.8% AP-VS: 76.1% CASH OFFICE WORKER: Magnetic Rate: 85 LINDA: 65 LEAH: [...] attenuation cannot completely be ruled out. [facility] 12/25/13, shows noncritical coronary artery disease, [...] pain. He is in class II of [place] [employer] functional class . There are [...] ventricular arrhythmia performed by Dr. Gambino at [facility] on 01/30/2013. Patient had spontaneous PVCs [...] to go back in 3 days to [place] for an attempt of ablation under general [...] palpitations.. He is in class II of [place] [employer] Ass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 There are no [...] bring in his blood pressure logs from [facility] e 5. Lightheadedness and dizziness/ presyncope: [...] made to ensure accuracy; however, inadvertent computerized range feeder errors may be pre sent. Electronically [...] W | | | | | | [place], | | | | | | [place] [address] | | | | | | [phone] | | | | | | | | +--------+ + + + + | 11/20/ | Implant | Cardiology | Daljit Singletary, | Remote Device | | 2019 | Monitor | | MD [address] | Interrogation | | | | | [place], | (Primary Dx); | | | | | [place] [address] | Presence of | | | | | [phone] | permanent cardiac | | | | [...] 07, 2014 : | | | 1960 Architecture Intern: Kailey Pruitt RN Device | | | Choker Hooker:Soshi[employer]ames Sense (mV) Impedance (?) Capture (V) | | | Capture (ms) A Lead >5.60 402 1.500 0.09 RV Lead >31.36 522 2.00 | | | 0.09 LV Lead Battery Impedance (?): 528 Battery Voltage (V): | | | 2.79 [place] Interval (ms): 147 AR Interval (ms): 217 VA Conduction: | | | Mode Switch Events: 0 % of time: 0 -CASH OFFICE WORKER: <0.1% AP-CASH OFFICE WORKER: 0.1% -VS: | | | 23.8% AP-VS: 76.1% CASH OFFICE WORKER: Magnetic Rate: 85 LINDA: 65 LEAH: [...] | | Date: March 07, 2014DOB: 1960 Architecture Intern: Kailey Pruitt RN Device | | Choker Hooker:S[employer]ames Sense (mV) Impedance (?) Capture (V) Capture (ms) A Lead >5.60 | | 402 1.500 0.09 RV Lead >31.36 522 2.00 0.09 LV Lead Battery Impedance (?): 528 | | Battery Voltage (V): 2.79 [place] Interval (ms): 147 AR Interval (ms): 217 VA Conduction: | | Mode Switch Events: 0 % of time: 0 -CASH OFFICE WORKER: <0.1% AP-CASH OFFICE WORKER: 0.1% -VS: 23.8% AP-VS: 76.1% | | CASH OFFICE WORKER: Magnetic Rate: 85 LINDA: 65 LEAH: [...]
--- OUTSIDE RECORDS SUMMARY | ~2019-10-04 | XMS | Encounter Summary ---
Demographics + + + | Address | [address] | | | [place] [address] | + + + | Home Phone [...] Providers + +------+ + | Care Technical Supervisor Name | Role | Phone | [...] | | | pain | [address] | [address] | | | | | Procedures | [place] | [place], | | | | | [place] Nuclear | [place] | [place] | | | | | Stress Test | [address] | [address] | | | | | (Vasodilator | Phone: | Phone: | | | | | ) CHG | [phone] | [phone] | | | | | MYOCARDIAL | Fax: | Fax: | | | | | SPECT | [phone] | [phone] | | | | | MULTIPLE | | | | | | | STUDIES | | | +--------+--------+ + + + + Encounter Details +--------+ + + + + | Date | Type | Department | Care Team | Description | +--------+ + + + + | 12/06/ | Hospital | [facility] | Geri Angel, | Other chest pain | | 2013 | Encounter | MED CTR XRAY [address] | BOILER OUT [address] | | | | | [place] | [place] | | | | | [place] [address] | [address] | | | | | [phone] | | | +--------+ + + + [...] + + + +---------+ + + | [place]-3 Fatty | CAPS, one capsule by | [...] W | | | | | | [place], | | | | | | [place] [address] | | | | | | [phone] | | | | | | | | +--------+ + + + + | 11/20/ | Implant | Cardiology | Daljit Singletary, | Remote Device | | 2018 | Monitor | | [address] | Interrogation | | | | | [place], | (Primary Dx); | | | | | [place] [address] | Presence of | | | | | [phone] | permanent cardiac | | | | [...] Performed At | + + + | [facility] Diagnostic Imaging | DOUDS | | Department [address] [facility] | [facility] | | [ rep ct [address]] [ rep [facility] | | st zip] Signed | - IMAGING | | | | | Patient Name: MOE GAY | | | Physician: JACKLYN : 1960 Age: 53 Sex: M Unit | | | #: [id number] Exam Date: 12/06/13 Location: | | | [facility] [place] #: [id number] Page: | | | %(RAD)RES..mtdd.print.filter("pg") of %(RAD) | | | RES..mtdd.print.filter("tpg") | | | | | | Accession Number: [id number] | | | PERSANTINE SESTAMIBI STRESS TEST, [...] Transcribed Date/Time: 12/07/2013 08:18 | | | Railroad Repairer: <<Signature on File>> | | | | | | Daljit Singletary MD [facility] FASE12/07/13 1321 <Electronically signed | | | by Daljit Singletary MD, FACC, FACP, FASE, FASNC> Daljit | | | MD CLEOPATRA Singletary 12/07/13 0701 Railroad Repairer: Jessica | | | Lwvwndddsmncx23/16/14 0818 PARISA Garcia | | + + + + + + + + | Performing | Address | City/[facility] | Phone Number | | Organization | | | | + + + + + | [facility] | [address] | [place] | [phone] | | [facility] | | [address] | | | - IMAGING | | | | + + + + + documented in this encounter Visit Diagnoses + + | Diagnosis | + + | Other chest pain | + + documented in this encounter
--- OUTSIDE RECORDS SUMMARY | ~2019-10-04 | XMS | Encounter Summary ---
Demographics + + + | Address | [address] | | | [place] [address] | + + + | Home Phone [...] Team Providers + +------+ + | Care U.[place]. Senator Name | Role | Phone | + [...] + + | 06/26/ | Office | [facility] | PickettJacek, | Diplopia (Primary | | 2012 | Visit | [facility] | [address] | Dx); Symptomatic | | | | [address] | [place], [place] | PVCs; Hypertension | | | | [place], [place] | [address] | | | | | [address] | | | | | | [phone] | | | +--------+---------+ + + + [...] Double vision will affect your ability to wearing apparel shaker distance. This means it will be harder [...] or, difficulty with vision, speech or walking [address] [place] [address]. All rights reserve d. This information is [...] from his pain clinic visit in the [facility] on Wednesday or he developed double vision [...] double vision. He was evaluated by Dr Elmore and had a normal eye exam, nor [...] tablet by mouth Daily. 30 tablet 6 [place]-3 Fatty Acids (SALMON OIL-1000 PO) CAPS, one [...] | | | | | | [place] [address] | | | | | | [phone] | | | | | | | | +--------+ + + + + | 11/20/ | Implant | Cardiology | Daljit Singletary, | Remote Device | | 2018 | Monitor | | MD [address] | Interrogation | | | | | [place] [place], | (Primary Dx); | | | | | [place] [address] | Presence of | | | | | [phone] | permanent cardiac | | | | [...] + | [facility] | [address] | [place] | [phone] | | [facility] | | [address] | | | - LABORATORY | | | | + + + + + | [facility] | [address] | [place] | | | [facility] | | [address] | | | - LABORATORY | | [...] + | [facility] | [address] | [place] | [phone] | | [facility] | | [address] | | | - LABORATORY | | | | + + + + + | [facility] | [address] | [place] | | | [facility] | | [address] | | | - LABORATORY | | [...] | [facility] | | | | [place] Access | | MEDICAL | | | [...] [address] | [place] | [phone] | | [facility] | | [address] | | | - LABORATORY | | | | + + + + + | [facility] | [address] | [place], [place] | | | [facility] | | [address] | | | - LABORATORY | | | | + + + + + documented in this encounter Visit Diagnoses + + | Diagnosis | + + | Diplopia - Primary | + + | Symptomatic PVCs Other premature beats | + + | Hypertension Unspecified essential hypertension | + + documented in this encounter
--- OUTSIDE RECORDS SUMMARY | ~2019-10-04 | XMS | Encounter Summary ---
Demographics + + + | Address | [address] | | | [place] [address] | + + + | Home Phone [...] Team Providers + +------+ + | Care Radar Signal Processing Engineer Name | Role | Phone | [...] W | DISCLOSURE) | | | | [place], | [place], | | | | | [place] [address] | [place] [address] | | | | | [phone] | [phone] | | | | | | | [...] W | | | | | | [place], | | | | | | [place] [address] | | | | | | [phone] | | | | | | | | +--------+ + + + + | 11/20/ | Implant | Cardiology | Daljit Singletary, | Remote Device | | 2018 | Monitor | | [facility] | Interrogation | | | | | [place], | (Primary Dx); | | | | | [place] [address] | Presence of | | | | | [phone] | permanent cardiac | | | | [...]
--- OUTSIDE RECORDS SUMMARY | ~2019-10-04 | XMS | Encounter Summary ---
Demographics + + + | Address | [address] | | | [place] [address] | + + + | Home Phone [...] Author | [facility] | | | [...] Team Providers + +------+ + | Care Ink Jet Operator Name | Role | Phone | + +------+ + | Michael Amanda DO | PCP | | + +------+ + Encounter Details +--------+ + + + + | Date | Type | Department | Care Team | Description | +--------+ + + + + | 10/01/ | Hospital | [facility] | Mary Bradshaw | | | 2013 | Encounter | MED CTR JORDEN DAIGLE | Guy Larkin MD | | | | | [address] [place] | [address] | | | | | [place], [place] | [place], [place] | | | | | [address] | [address] | | | | | [phone] | | | +--------+ + + + [...] + + + +---------+ + + | [place]jam[place]-3 Fatty | CAPS, one capsule by | [...] | | | | | | [place] [address] | | | | | | [phone] | | | | | | | | +--------+ + + + + | 11/20/ | Implant | Cardiology | Daljit Singletary, | Remote Device | | 2019 | Monitor | | [place] [facility] | Interrogation | | | | | [place], | (Primary Dx); | | | | | [place] [address] | Presence of | | | | | [phone] | permanent cardiac | | | | [...] + | MISCELLANEOUS LAB | | | [phone] | + +---------+ + + | MISCELANIOUS LAB | | | [phone] | + +---------+ + + documented in this encounter Visit Diagnoses Not on filedocumented in this encounter"
--- OUTSIDE RECORDS SUMMARY | ~2019-10-04 | XMS | Encounter Summary ---
Demographics + + + | Address | [address] | | | [place] [address] | + + + | Home Phone [...] Providers + +------+ + | Care Clerical Investigator Name | Role | Phone | [...] + + | 10/01/ | Office | [facility] | Mary Bradshaw | Injury of left foot, | | 2013 | Visit | CARE [address] | Guy Larkin MD | initial encounter | | | | [place] | [address] | (Primary Dx) | | | | [address] | [place] | | | | | [phone] | [address] | | | | | | | [...] half hours. 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 I provided patient with Dr. Bradley's card so he may contact us for results. Patient's best phone number: [phone] Renetta Lockwood RN ary Bradshaw MD - [...] | | | | | | [place] [address] | | | | | | [phone] | | | | | | | | +--------+ + + + + | 11/20/ | Implant | Cardiology | Daljit Singletary, | Remote Device | 2018 | Monitor | | [facility] | Interrogation | | | | | [place], | (Primary Dx); | | | | | [place] [address] | Presence of | | | | | [phone] | permanent cardiac | | | | [...] + | MISCELLANEOUS LAB | | | [phone] | + +---------+ + + | MISCELANIOUS LAB | | | [phone] | + +---------+ + + documented in this encounter Visit Diagnoses + + | Diagnosis | + + | Injury of left foot, initial encounter - Primary | + + documented in this encounter
--- OUTSIDE RECORDS SUMMARY | ~2019-10-04 | XMS | Encounter Summary ---
Demographics + + + | Address | [address] | | | [place] [address] | + + + | Home Phone [...] Team Providers + +------+ + | Care Bead Inspector Name | Role | Phone | + +------+ + | Darion Holden DO | PCP | | + +------+ + Encounter Details +--------+ + + + + | Date | Type | Department | Care Team | Description | +--------+ + + + + | 08/05/ | Hospital | [facility] | Emmanuel Daniel MD | | | 2009 | Encounter | MED CTR XRAY [address] | [address] | | | | | [place] | [address] [place], [place] | | | | | [place] [address] | [address] | | | | | [phone] | | | +--------+ + + + [...] | | | | | | [place], | | | | | | [place] [address] | | | | | | [phone] | | | | | | | | +--------+ + + + + | 11/20/ | Implant | Cardiology | Daljit Singletary, | Remote Device | | 2018 | Monitor | | [address] | Interrogation | | | | | [place], | (Primary Dx); | | | | | [place] [address] | Presence of | | | | | [phone] | permanent cardiac | | | | [...]
--- OUTSIDE RECORDS SUMMARY | ~2019-10-04 | XMS | Encounter Summary ---
Demographics + + + | Address | [address] | | | [place] [address] | + + + | Home Phone [...] Providers + +------+ + | Care Academic Guidance Specialist Name | Role | Phone | [...] [place] | | | | | [place], [place] | [address] | | | | | [address] | [place] [address] | | | | | [phone] | [phone] | | | | | | | [...] | | | | | | [place], | | | | | | [place] [address] | | | | | | [phone] | | | | | | | | +--------+ + + + + | 11/20/ | Implant | Cardiology | Daljit Singletary, | Remote Device | | 2018 | Monitor | | [address] [place] | Interrogation | | | | | [place], | (Primary Dx); | | | | | [place] [address] | Presence of | | | | | [phone] | permanent cardiac | | | | [...]
--- OUTSIDE RECORDS SUMMARY | ~2019-10-04 | XMS | Encounter Summary ---
Demographics + + + | Address | [address] | | | [place] [address] | + + + | Home Phone [...] Team Providers + +------+ + | Care Relief Charge Nurse Name | Role | Phone | + +------+ + PCP | Unavailable | + +------+ + Encounter Details +--------+ + + + + | Date | Type | Department | Care Team | Description | +--------+ + + + + | 11/12/ | Hospital | [facility] | | | | 1994 | Encounter | MED CTR GENERIC OP | | | | | | CONV DEPT [address] | | | | | | [place], | | | | | | [place] [address] | | | | | | [phone] | | | +--------+ + + + [...] | | | | | | [place] [address] | | | | | | [phone] | | | | | | | | +--------+ + + + + | 11/20/ | Implant | Cardiology | Daljit Singletary, | Remote Device | | 2018 | Monitor | | [address] [facility] | Interrogation | | | | | [place], | (Primary Dx); | | | | | [place] [address] | Presence of | | | | | [phone] | permanent cardiac | | | | [...]
--- OUTSIDE RECORDS SUMMARY | ~2019-10-04 | XMS | Encounter Summary ---
Demographics + + + | Address | [address] | | | [place] [address] | + + + | Home Phone [...] Team Providers + +------+ + | Care Granular Operator Name | Role | Phone | [...] Provider Unknown | | | | | [place], [place] | [phone] | | | | | [address] | | | | | | [phone] | | | +--------+ + + + [...] + + + +---------+ + + | [place]-3 Fatty | CAPS, one capsule by | [...] W | | | | | | [place], | | | | | | [place] [address] | | | | | | [phone] | | | | | | | | +--------+ + + + + | 11/20/ | Implant | Cardiology | Daljit Singletary, | Remote Device | | 2018 | Monitor | | MD [place] | Interrogation | | | | | [place], | (Primary Dx); | | | | | [place] [address] | Presence of | | | | | [phone] | permanent cardiac | | | | [...] +--------+ + + + | FL MYELOGRAM | Routin | 06/04/2016 | | Results for this | | CERVICAL | e | 2:28 AM | | procedure are in the | | | | PDT | | results section. | + +--------+ + + + documented in this encounter Results FL Myelogram Cervical (06/04/2016 2:28 AM PDT) + + | Specimen | [...]
--- OUTSIDE RECORDS SUMMARY | ~2019-10-04 | XMS | Encounter Summary ---
Demographics + + + | Address | [address] | | | [place] [address] | + + + | Home Phone [...] Providers + +------+ + | Care Label Stamper Name | Role | Phone | + +------+ + | Kirk French MD | PCP | | + +------+ + Encounter Details +--------+ + + + + | Date | Type | Department | Care Team | Description | +--------+ + + + + | 12/24/ | Orders Only | [facility] | Conversion | | | 2018 | | [facility] | Transaction, | | | | | PRIMARY CARE [address] | Provider Unknown | | | | | [address] | [phone] | | | | | [place] | | | | | | [address] | | | | | | [phone] | | | +--------+ + + + [...] | | | | | | [place], | | | | | | [place] [address] | | | | | | [phone] | | | | | | | | +--------+ + + + + | 11/20/ | Implant | Cardiology | Daljit Singletary, | Remote Device | | 2018 | Monitor | | [address] [facility] | Interrogation | | | | | [place], | (Primary Dx); | | | | | [place] [address] | Presence of | | | | | [phone] | permanent cardiac | | | | [...] documented in this encounter Results EXTERNAL: COLONOSCOPY (12/24/2017 12:00 AM PST) + [...]
--- OUTSIDE RECORDS SUMMARY | ~2019-10-04 | XMS | Encounter Summary ---
Demographics + + + | Address | [address] | | | [place] [address] | + + + | Home Phone [...] Team Providers + +------+ + | Care Guitar Teacher Name | Role | Phone | [...] + + | 08/14/ | Tele[facility] | [facility] | Michael Amanda, | Appointment | | 2012 | | [facility] [address] | DO [address] | | | | | [facility] | [place] | | | | | [place], [place] | [address] | | | | | [address] | | | | | | [phone] | | | +--------+ + + + [...] W | | | | | | [place], | | | | | | [place] [address] | | | | | | [phone] | | | | | | | | +--------+ + + + + | 11/20/ | Implant | Cardiology | Daljit Singletary, | Remote Device | | 2018 | Monitor | | [address] [facility] | Interrogation | | | | | [place], | (Primary Dx); | | | | | [place] [address] | Presence of | | | | | [phone] | permanent cardiac | | | | [...]
--- OUTSIDE RECORDS SUMMARY | ~2019-10-04 | XMS | Encounter Summary ---
Demographics + + + | Address | [address] | | | [place] [address] | + + + | Home Phone [...] Providers + +------+ + | Care Data Processing Equipment Repairer Name | Role | Phone [...] [place] | | | | | | [address] | | | | | | [phone] | | | +--------+ + + + [...] | | | | | | [place], | | | | | | [place] [address] | | | | | | [phone] | | | | | | | | +--------+ + + + + | 11/20/ | Implant | Cardiology | Daljit Singletary, | Remote Device | | 2018 | Monitor | | [address] [facility] | Interrogation | | | | | [place], | (Primary Dx); | | | | | [place] [address] | Presence of | | | | | [phone] | permanent cardiac | | | | [...]
--- OUTSIDE RECORDS SUMMARY | ~2019-10-04 | XMS | Encounter Summary ---
Demographics + + + | Address | [address] | | | [place] [address] | + + + | Home Phone [...] Team Providers + +------+ + | Care Levers Lace Machine Operator Name | Role | Phone [...] | 07/30/ | Telephone | [facility] | Michael Amanda, | Results | | 2013 | | [facility] [place] | DO [address] | | | | | [address] | [place] | | | | | [place] | [address] | | | | | [address] | | | | | | [phone] | | | +--------+ + + + [...] | | | | | | [place] [address] | | | | | | [phone] | | | | | | | | +--------+ + + + + | 11/20/ | Implant | Cardiology | Daljit Singletary, | Remote Device | | 2018 | Monitor | | MD Chiquis [place]ro | Interrogation | | | | | [place], | (Primary Dx); | | | | | [place] [address] | Presence of | | | | | [phone] | permanent cardiac | | | | [...]
--- OUTSIDE RECORDS SUMMARY | ~2019-10-04 | XMS | Encounter Summary ---
Demographics + + + | Address | [address] | | | [place] [address] | + + + | Home Phone [...] Providers + +------+ + | Care Charger Tester Name | Role | Phone | + +------+ + | Michael Amanda DO | PCP | | + +------+ + Encounter Details +--------+ + + + + | Date | Type | Department | Care Team | Description | +--------+ + + + + | 11/03/ | Emergency | [facility] | Eliel Calzada, | Palpitations; | | 2013 - | | [facility]ICAL [facility]ENTER | MD Chiquis JOHNSON | Atypical chest pain | | | | EMERGENCY CENTER | [facility] [place] | | | 11/04/ | | [address] | [address] | | | 2013 | | [place], [place] | | | | | | [address] | | | | | | [phone] | | | +--------+ + + + [...] + + + +---------+ + + | [place]-3 Fatty | CAPS, one capsule by | [...] | | | | | | [place] [address] | | | | | | [phone] | | | | | | | | +--------+ + + + + | 11/20/ | Implant | Cardiology | Daljit Singletary, | Remote Device | | 2019 | Monitor | | [address] [facility] | Interrogation | | | | | [place], | (Primary Dx); | | | | | [place] [address] | Presence of | | | | | [phone] | permanent cardiac | | | | [...] CHEST 2 VIEW FRONTAL | | AND QZNDCJA3111/03/2014 11:56 PM History: 54 years. Male. Acute [...] EXTERNAL | | | | performed at [facility];888 | | LAB | | | | [address] [facility];[place], [place] | | | | | | [address] | | | | + + + + + -+ | RED CELL | 4.97Comment: Testing | 4.20 - 5.70 | EXTERNAL | | | COUNT | performed at [facility];888 | M/uL | LAB | | | | [address];[place] | | | | | | [address] | | | | + + + + + -+ | Hgb | 16.8Comment: Testing | 13.2 - 17.0 | EXTERNAL | | | | performed at [facility];888 | g/dL | LAB | | | | [address];[place] | | | | | | [address] | | | | + + + + + -+ | Hematocrit, | 48.2Comment: Testing | 39.0 - 50.0 % | EXTERNAL | | | POC | performed at [facility];[address] | | LAB | | | | [address];[place] | | | | | | [address] | | | | + + + + + -+ | MCV | 97.1Comment: Testing | 80.0 - 100.0 fl | EXTERNAL | | | | performed at [facility];[address] | | LAB | | | | [address];[place] | | | | | | [address] | | | | + + + + + -+ | MCH | 33.9Comment: Testing | 27.0 - 34.0 pg | EXTERNAL | | | | performed at [facility];[address] | | LAB | | | | [address];[place] | | | | | | [address] | | | | + + + + + -+ | MCHC | 34.9Comment: Testing | 32.0 - 35.5 | EXTERNAL | | | | performed at [facility];888 | g/dL | LAB | | | | [address];[place] | | | | | | [address] | | | | + + + + + -+ | RDW-CV | 42.4Comment: Testing | 37 - 53 fl | EXTERNAL | | | | performed at [facility];[address] | | LAB | | | | [address];[place] | | | | | | [address] | | | | + + + + + -+ | Platelet | 143 (L)Comment: Testing | 150 - 400 K/uL | EXTERNAL | | | Count | performed at [facility];[address] | | LAB | | | Plasma | [address];[place] | | | | | | [address] | | | | + + + + + -+ | MPV | 9.0Comment: Testing | fl | EXTERNAL | | | | performed at [facility];[address] | | LAB | | | | [address];[place] | | | | | | [address] | | | | + + + + + -+ | Differentia | AUTOMATEDComment: | | EXTERNAL | | | l Type | Testing performed at | | LAB | | | | [facility];[address] | | [address];[place] [address] | | | | + + + + + -+ | % Segmented | 61.6Comment: Testing | % | EXTERNAL | | | | performed at [facility];[address] | | LAB | | | Neutrophils | [address];[place] | | | | | | [address] | | | | + + + + + -+ | % | 27.8Comment: Testing | % | EXTERNAL | | | Lymphocytes | performed at [facility];[address] | | LAB | | | | [address];[place] | | | | | | [address] | | | | + + + + + -+ | % Monocytes | 8.7Comment: Testing | % | EXTERNAL | | | | performed at [facility];[address] | | LAB | | | | [address];[place] | | | | | | [address] | | | | + + + + + -+ | % | 0.8Comment: Testing | % | EXTERNAL | | | Eosinophils | performed at [facility];[address] | | LAB | | | | [address];[place] | | | | | | [address] | | | | + + + + + -+ | % Basophils | 1.1Comment: Testing | % | EXTERNAL | | | | performed at [facility];[address] | | LAB | | | | [address];[place] | | | | | | [address] | | | | + + + + + -+ | Absolute | 5.4Comment: Testing | 1.9 - 7.4 K/uL | EXTERNAL | | | Segmented | performed at [facility];[address] | | LAB | | | Neutrophils | [address];[place] | | | | | | [address] | | | | + + + + + -+ | Absolute | 2.4Comment: Testing | 1.0 - 3.9 K/uL | EXTERNAL | | | Lymphocytes | performed at [facility];[address] | | LAB | | | | [address];[place] | | | | | | [address] | | | | + + + + + -+ | Absolute | 0.8Comment: Testing | 0 - 0.8 K/uL | EXTERNAL | | | Monocytes | performed at [facility];[address] | | LAB | | | | [address];[place] | | | | | | [address] | | | | + + + + + -+ | Absolute | 0.1Comment: Testing | 0 - 0.5 K/uL | EXTERNAL | | | Eosinophils | performed at [facility];[address] | | LAB | | | | [address];[place] | | | | | | [address] | | | | + + + + + -+ | Absolute | 0.1Comment: Testing | 0 - 0.1 K/uL | EXTERNAL | | | Basophils | performed at [facility];[address] | | LAB | | | | [address];[place] | | | | | | [address] | | | | + + + + + -+ | RBC | SLIDE SCANNED, AGREES | | EXTERNAL | | | Morphology | WITH AUTOMATED | | LAB | | | | RESULTS.Comment: Testing | | | | | | performed at [facility];[address] | | | | | | [address];[place] | | | | | | [address] | | | | + + + + + -+ | Na | 140Comment: Testing | 135 - 143 | EXTERNAL | | | | performed at [facility];[address] | mmol/L | LAB | | | | [address];[place] | | | | | | [address] | | | | + + + + + -+ | K | 3.9Comment: Testing | 3.5 - 4.9 | EXTERNAL | | | | performed at [facility];888 | mmol/L | LAB | | | | [address];[place] | | | | | | [address] | | | | + + + + + -+ | Cl | 107Comment: Testing | 99 - 109 mmol/L | EXTERNAL | | | | performed at [facility];[address] | | LAB | | | | [address];[place] | | | | | | [address] | | | | + + + + + -+ | CO2 | 28Comment: Testing | 23 - 32 mmol/L | EXTERNAL | | | | performed at [facility];[address] | | LAB | | | | [address];[place] | | | | | | [address] | | | | + + + + + -+ | Anion Gap | 9Comment: Testing | 5 - 20 mmol/L | EXTERNAL | | | | performed at [facility];[address] | | LAB | | | | [address];[place] | | | | | | [address] | | | | + + + + + -+ | Glucose, | 97Comment: Testing | 65 - 99 mg/dL | EXTERNAL | | | Fasting | performed at [facility];[address] | | LAB | | | | [address];[place] | | | | | | [address] | | | | + + + + + -+ | BUN | 14Comment: Testing | 8 - 25 mg/dL | EXTERNAL | | | | performed at [facility];[address] | | LAB | | | | [address];[place] | | | | | | [address] | | | | + + + + + -+ | Creatinine | 0.98Comment: Testing | 0.70 - 1.30 | EXTERNAL | | | | performed at [facility];888 | mg/dL | LAB | | | | [address];[place] | | | | | | [address] | | | | + + + + + -+ | BUN/Creatin | 14Comment: Testing | | EXTERNAL | | | ine Ratio | performed at [facility];[address] | | LAB | | | | [address];[place] | | | | | | [address] | | | | + + + + + -+ | Calcium | 8.8Comment: Testing | 8.5 - 10.2 | EXTERNAL | | | | performed at [facility];888 | mg/dL | LAB | | | | [address];[place] | | | | | | [address] | | | | + + + + + -+ | Protein, | 6.9Comment: Testing | 6.3 - 8.2 g/dL | EXTERNAL | | | Total | performed at [facility];[address] | | LAB | | | | [address];[place] | | | | | | [address] | | | | + + + + + -+ | Albumin | 3.7Comment: Testing | 3.6 - 5.0 g/dL | EXTERNAL | | | | performed at [facility];[address] | | LAB | | | | [address];[place] | | | | | | [address] | | | | + + + + + -+ | Globulin | 3.2Comment: Testing | 1.3 - 4.9 g/dL | EXTERNAL | | | | performed at [facility];[address] | | LAB | | | | [address];[place] | | | | | | [address] | | | | + + + + + -+ | A/G Ratio | 1.2Comment: Testing | 1.0 - 2.4 | EXTERNAL | | | | performed at [facility];[address] | | LAB | | | | [address];[place] | | | | | | [address] | | | | + + + + + -+ | Bilirubin | 0.9Comment: Testing | 0.1 - 1.5 mg/dL | EXTERNAL | | | Total | performed at [facility];[address] | | LAB | | | | [address];[place] | | | | | | [address] | | | | + + + + + -+ | ALP, | 60Comment: Testing | 35 - 115 U/L | EXTERNAL | | | External | performed at [facility];[address] | | LAB | | | | [address];[place] | | | | | | [address] | | | | + + + + + -+ | AST | 22Comment: Testing | 10 - 45 U/L | EXTERNAL | | | | performed at [facility];[address] | | LAB | | | | [address];[place] | | | | | | [address] | | | | + + + + + -+ | ALT | 37Comment: Testing | 10 - 65 U/L | EXTERNAL | | | | performed at [facility];[address] | | LAB | | | | [address];[place] | | | | | | [address] | | | | + + + [...] | | | | | | at [facility];[address] [facility] | | | | | | Blvd;[place] [address] | | | | + + + + + -+ | CK, Total | 103Comment: Testing | 55 - 400 U/L | EXTERNAL | | | | performed at [facility];[address] | | LAB | | | | [facility] [address];[place], [place] | | | | | | [address] | | | | + + + [...] | | | | | performed at [facility];[address] | | | | | | [address];[place] | | | | | | [address] | | | | + + + + + -+ | aPTT, | 26Comment: Testing | 23 - 32 seconds | EXTERNAL | | | Patient | performed at [facility];[address] | | LAB | | | | [address];[place] | | | | | | [address] | | | | + + + + + -+ | CK-MB | 2.9Comment: Testing | 0.5 - 3.6 ng/mL | EXTERNAL | | | | performed at [facility];[address] | | LAB | | | | [address];[place] | | | | | | [address] | | | | + + + [...] EXTERNAL | | | | performed at [facility];[address] | uIU/mL | LAB | | | | [address];[place], [place] | | | | | | [address] | | | | + + + [...] EXTERNAL | | | | performed at [facility];[address] | | LAB | | | | [address];[place] | | | | | | [address] | | | | + + + [...] EXTERNAL | | | | performed at [facility];[address] | | LAB | | | | [address];[place], [place] | | | | | | [address] | | | | + + + [...]
--- OUTSIDE RECORDS SUMMARY | ~2019-10-04 | XMS | Encounter Summary ---
Demographics + + + | Address | [address] | | | [place] [address] | + + + | Home Phone [...] Team Providers + +------+ + | Care Donkey Doctor Name | Role | Phone | [...] [place] | | | | | | [address] | | | | | | [phone] | | | +--------+ + + + [...] + + + +---------+ + + | [place]-3 Fatty | CAPS, one capsule by | [...] W | | | | | | [place], | | | | | | [place] [address] | | | | | | [phone] | | | | | | | | +--------+ + + + + | 11/20/ | Implant | Cardiology | Daljit Singletary, | Remote Device | | 2018 | Monitor | | [address] [facility] | Interrogation | | | | | [place], | (Primary Dx); | | | | | [place] [address] | Presence of | | | | | [phone] | permanent cardiac | | | | [...]
--- OUTSIDE RECORDS SUMMARY | ~2019-10-04 | XMS | Encounter Summary ---
Demographics + + + | Address | [address] | | | [place] [address] | + + + | Home Phone [...] + + | 10/23/ | Office | [facility] | Silvia, | CAD (coronary artery | | 2013 | Visit | CARDIOLOGY [address] | [address] [place] [address] | disease) (Primary | | | | [place], | [place], | Dx); Other chest | | | | [place] [address] | [place] [address] | pain; Chest pain; | | | | [phone] | [phone] | Coronary artery | | | | [...] Sanchez Date: October 23, 2014 : 1960 Stranding Machine Operator: Kailey Pruitt RN Device Rf Technician: Wallop Sense (mV) Impedance (?) Capture (V) Capture (ms) A Lead 2.80-4.00 407 1.500 0.09 RV Lead 22.40-31.36 519 2.000 0.09 LV Lead Battery Impedance (?): 658 Battery Voltage (V): 2.79 FL Interval (ms): 155 AR Interval (ms): 240 VA Conduction: Mode Switch Events: 1 % of time: <0.1 -DREDGE ENGINEER: <0.1% AP-DREDGE ENGINEER: <0.1% -VS: 13.8% AP-VS: 86.1% DREDGE ENGINEER: Magnetic Rate: 85 LINDA: 65 LEAH: [...] Kailey Pruitt RN 10/23/2014 15:22 ames Janeen, FOOTBALL SCOUT - 10/23/2014 2:22 PM PST PATIENT NAME: [...] needed for Chest pain. 25 tablet 12 [place]-3 Fatty Acids (SALMON OIL-1000 PO) CAPS, [...] attenuation cannot completely be ruled out. [facility] 12/25/13, shows non critical coronary [...] He is i n class I-II of [place] 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 There are no [...] ventricular arrhythmia performed by Dr. Gambino at [facility] on 01/30/2013. Patient had spontaneous PVCs from [...] to go back in 3 days to [place] for an attempt of ablation under general [...] dizziness. He is in class I-II of [place] Heart 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 There are n [...] need r e-check on CTA I, PARISA Rusesll, saw this patient under the direct supervision of Fabrice Jaeger MD Portions of this chart may have been created with [employer] voice recognition software. Occasi onal wrong-word or [...] | | | | | | [place], | | | | | | [place] [address] | | | | | | [phone] | | | | | | | | +--------+ + + + + | 11/20/ | Implant | Cardiology | Anshushaistatesha Shaistaanshu, | Remote Device | | 2019 | Monitor | | [address] [facility] | Interrogation | | | | | [place], | (Primary Dx); | | | | | [place] [address] | Presence of | | | | | [phone] | permanent cardiac | | | | [...] 23, 2014 : | | | 1960 Stranding Machine Operator: Kailey Pruitt RN Device Rf Technician: | | | Medtronic Sense (mV) Impedance (?) Capture (V) Capture (ms) A | | | Lead 2.80-4.00 407 1.500 0.09 RV Lead 22.40-31.36 519 2.000 0.09 | | | LV Lead Battery Impedance (?): 658 Battery Voltage (V): 2.79 | | | FL Interval (ms): 155 AR Interval (ms): 240 VA Conduction: Mode | | | Switch Events: 1 % of time: <0.1 -DREDGE ENGINEER: <0.1% AP-DREDGE ENGINEER: <0.1% -VS: | | | 13.8% AP-VS: 86.1% DREDGE ENGINEER: Magnetic Rate: 85 LINDA: 65 LEAH: [...] | different from the original. DEVICE INTERROGATIONName: Moechica Sanchez | | Date: October 23, 2014DOB: 1960 Stranding Machine Operator: Chikis Saule Rf Technician: | | Medtronic Sense (mV) Impedance (?) Capture (V) Capture (ms) A Lead 2.80-4.00 407 1.500 | | 0.09 RV Lead 22.40-31.36 519 2.000 0.09 LV Lead Battery Impedance (?): 658 Battery | | Voltage (V): 2.79 FL Interval (ms): 155 AR Interval (ms): 240 VA Conduction: Mode | | Switch Events: 1 % of time: <0.1 -DREDGE ENGINEER: <0.1% AP-DREDGE ENGINEER: <0.1% -VS: 13.8% AP-VS: 86.1% DREDGE ENGINEER: | | Magnetic Rate: 85 LINDA: [...] of unspecified type | | of vessel, robinson or graft | + + | Other chest pain | + + | Chest pain Chest pain, unspecified | + + | Coronary artery disease Coronary atherosclerosis of unspecified type of vessel, | | robinson or graft | + + | Pacemaker [...]
--- OUTSIDE RECORDS SUMMARY | ~2019-10-04 | XMS | Encounter Summary ---
Demographics + + + | Address | [address] | | | [place] [address] | + + + | Home Phone [...] Team Providers + +------+ + | Care Foundry Tender Name | Role | Phone | + +------+ + PCP | Unavailable | + +------+ + Encounter Details +--------+ + + + + | Date | Type | Department | Care Team | Description | +--------+ + + + + | 12/16/ | [facility] | [facility] | Naresh Mckeon | | | 2010 | Encounter | [facility] SLE[facility] | MD Chaya [address] | | | | | CENTER [address] | [place] | | | | | [place] | [place] [address] | | | | | [address] | [phone] | | | | | [phone] | | | +--------+ + + + [...] | | | | | | [place] [address] | | | | | | [phone] | | | | | | | | +--------+ + + + + | 11/20/ | Implant | Cardiology | Daljit Singletary, | Remote Device | | 2019 | Monitor | | MD Chiquis Oro | Interrogation | | | | | [facility], | (Primary Dx); | | | | | [place] [address] | Presence of | | | | | [phone] | permanent cardiac | | | | [...]
--- OUTSIDE RECORDS SUMMARY | ~2019-10-04 | XMS | Encounter Summary ---
Demographics + + + | Address | [address] | | | [place] [address] | + + + | Home Phone [...] Team Providers + +------+ + | Care Events Traffic Controller Name | Role | Phone | + +------+ + PCP | Unavailable | + +------+ + Encounter Details +--------+ + + + + | Date | Type | Department | Care Team | Description | +--------+ + + + + | 10/09/ | [facility] | [facility] | Jonathan, | | | 2008 | Encounter | [facility] EM[facility]Y | Martell Cr MD [address] | | | | | CENTER [address] | [place] | | | | | [place] | [place] [address] | | | | | [address] | [phone] | | | | | [phone] | | | +--------+ + + + [...] W | | | | | | [place], | | | | | | [place] [address] | | | | | | [phone] | | | | | | | | +--------+ + + + + | 11/20/ | Implant | Cardiology | Daljit Singletary, | Remote Device | | 2019 | Monitor | | MD Chiquis Oro | Interrogation | | | | | [place], | (Primary Dx); | | | | | [place] [address] | Presence of | | | | | [phone] | permanent cardiac | | | | [...]
--- OUTSIDE RECORDS SUMMARY | ~2019-10-04 | XMS | Encounter Summary ---
Demographics + + + | Address | [address] | | | [place] [address] | + + + | Home Phone [...] Team Providers + +------+ + | Care Anesthetic Assistant Name | Role | Phone | [...] + + | 04/10/ | Telephone | [facility] | Matthew Uriarte | Surgery Appointment | | 2019 | | [address] | MD Tawanna [address] | | | | | [place], [place] | [place], [place] | | | | | [address] | [address] | | | | | [phone] | | | +--------+ + + + [...] | | | | | | [place] [address] | | | | | | [phone] | | | | | | | | +--------+ + + + + | 11/20/ | Implant | Cardiology | Daljit Singletary, | Remote Device | | 2018 | Monitor | | MD [address]iqu[address]ro | Interrogation | | | | | [place], | (Primary Dx); | | | | | [place] [address] | Presence of | | | | | [phone] | permanent cardiac | | | | [...]
--- OUTSIDE RECORDS SUMMARY | ~2019-10-04 | XMS | Encounter Summary ---
Demographics + + + | Address | [address] | | | [place] [address] | + + + | Home Phone [...] Team Providers + +------+ + | Care Vocational Ed Instructor Name | Role | Phone | + +------+ + | Michael Amanda DO | PCP | | + +------+ + Reason for Visit +---------+ + | Reason | Comments | +---------+ + | No Show | | +---------+ + Encounter Details +--------+ + + + + | Date | Type | Department | Care Team | Description | +--------+ + + + + | 06/23/ | Telephone | [facility] | Michael Amanda, | No Show | | 2012 | | MEDICINE [place] | DO [address] | | | | | [address] | [place] | | | | | [place] | [address] | | | | | [address] | | | | | | [phone] | | | +--------+ + + + [...] | | | | | | [place] [address] | | | | | | [phone] | | | | | | | | +--------+ + + + + | 11/20/ | Implant | Cardiology | Daljit Singletary, | Remote Device | | 2018 | Monitor | | MD [address]iquis Oro | Interrogation | | | | | [place], | (Primary Dx); | | | | | [place] [address] | Presence of | | | | | [phone] | permanent cardiac | | | | [...]
--- OUTSIDE RECORDS SUMMARY | ~2019-10-04 | XMS | Encounter Summary ---
Demographics + + + | Address | [address] | | | [place] [address] | + + + | Home Phone [...] Providers + +------+ + | Care Medical Certification Specialist Name | Role | Phone | [...] | | CARDIOLOGY [address] | Janeen QUOTATION CHECKER [address] | | | | | [place], | [place], | | | | | [place] [address] | [place] [address] | | | | | [phone] | [phone] | | | | | | | [...] W | | | | | | [place], | | | | | | [place] [address] | | | | | | [phone] | | | | | | | | +--------+ + + + + | 11/20/ | Implant | Cardiology | Daljit Singletary, | Remote Device | | 2018 | Monitor | | MD [address]iqu[address] Oro | Interrogation | | | | | [place], | (Primary Dx); | | | | | [place] [address] | Presence of | | | | | [phone] | permanent cardiac | | | | [...]
--- OUTSIDE RECORDS SUMMARY | ~2019-10-04 | XMS | Encounter Summary ---
Demographics + + + | Address | [address] | | | [place] [address] | + + + | Home Phone [...] Providers + +------+ + | Care Sheet Metal Roofer Name | Role | Phone | + +------+ + | Michael Amanda DO | PCP | | + +------+ + Reason for Visit + + + | Reason | Comments | + + + | Follow-up | One month with [facility] 12/25/13 | + + + | Chest Pain | | + + + Encounter Details +--------+---------+ + + + | Date | Type | Department | Care Team | Description | +--------+---------+ + + + | 01/29/ | Office | [facility] | Islvia, | Other chest pain | | 2013 | Visit | CARDIOLOGY [address] | PARISA [place] [address] | (Primary Dx); Chest | | | | [place], | [place], | pain; Coronary | | | | [place] [address] | [place] [address] | artery disease; | | | | [phone] | [phone] | Hyperlipidemia; | | | | | [...] last week to the emergency room at [facility] with a baljit st pain [...] needed for Chest pain. 25 tablet 12 [place]-3 Fatty Acids (SALMON OIL-1000 PO) CAPS, one [...] was seen on the emergency room at [place] on 01/26/2014, he was ruled out A [...] pain. He is in class II of [place] Heart Ass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 There are no [...] to go back in 3 days to [place] for an attempt of ablation under general [...] symptoms. He is in class II of [place] Heart Ass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 There are no [...] made to ensure accuracy; however, inadvertent computerized supervisor feed house errors may be pre sent. Electronically signed [...] | | | | | | [place] [address] | | | | | | [phone] | | | | | | | | +--------+ + + + + | 11/20/ | Implant | Cardiology | Daljit Singletary, | Remote Device | | 2018 | Monitor | | [facility] | Interrogation | | | | | [place], | (Primary Dx); | | | | | [place] [address] | Presence of | | | | | [phone] | permanent cardiac | | | | [...] of unspecified type of vessel, | | [place] or graft | + + | Hyperlipidemia Other and unspecified hyperlipidemia | + + | Symptomatic PVCs Other premature beats | + + | Hypertension Unspecified essential hypertension | + + documented in this encounter
--- OUTSIDE RECORDS SUMMARY | ~2019-10-04 | XMS | Encounter Summary ---
Demographics + + + | Address | [address] | | | [place] [address] | + + + | Home Phone [...] Providers + +------+ + | Care Business Process Consultant Name | Role | Phone | [...] 2012 | | CARDIOLOGY [address] | SALES AND SERVICE ENGINEER [address] [place] | | | | | [place], | [place] [facility] [place] | | | | | [place] [address] | [address] | | | | | [phone] | | | +--------+ + + + [...] | | | | | | [place] [address] | | | | | | [phone] | | | | | | | | +--------+ + + + + | 11/20/ | Implant | Cardiology | Daljit Singletary, | Remote Device | | 2018 | Monitor | | MD Chiqu[address] Oro | Interrogation | | | | | [place], | (Primary Dx); | | | | | [place] [address] | Presence of | | | | | [phone] | permanent cardiac | | | | [...]
--- OUTSIDE RECORDS SUMMARY | ~2019-10-04 | XMS | Encounter Summary ---
Demographics + + + | Address | [address] | | | [place] [address] | + + + | Home Phone [...] Team Providers + +------+ + | Care Envelope Sealer Name | Role | Phone | [...] | Telephone | [facility] [place] | Grei Angel, | Appointment | | 2012 | | CARDIOLOGY [address] | BUNKER WORKER [address] [place] | | | | | [place], | [place], [place] | | | | | [place] [address] | [address] | | | | | [phone] | | | +--------+ + + + [...] | | | | | | [place] [address] | | | | | | [phone] | | | | | | | | +--------+ + + + + | 11/20/ | Implant | Cardiology | Daljit Singletary, | Remote Device | | 2018 | Monitor | | MD [address]ro | Interrogation | | | | | [place], | (Primary Dx); | | | | | [place] [address] | Presence of | | | | | [phone] | permanent cardiac | | | | [...]
--- OUTSIDE RECORDS SUMMARY | ~2019-10-04 | XMS | Encounter Summary ---
Demographics + + + | Address | [address] | | | [place] [address] | + + + | Home Phone [...] Team Providers + +------+ + | Care Inside Sales Administrator Name | Role | Phone | [...] + + | 08/17/ | Office | [facility] | Michael Amanda, | Testosterone | | 2012 | Visit | [facility]IC[facility] [place] | DO [address] | deficiency (Primary | | | | [address] | [place] | Dx); Hypoglycemia; | | | | [place] | [address] | Herpes | | | | [address] | | | | | | [phone] | | | +--------+---------+ + + + [...] lowering his testosterone levels. He seen at [facility]. He was prescribed OxyContin and Dilaudid. The [...] erectile dy sfunction. He was seen at [facility] yesterday and they prescribed him testostero ne cypionate injections. He's not sure when they wanted him to come back for labs. He has a followup appointment with [facility] in one month. Patient complains of history [...] HTN (hypertension); Hypercholesterolemia; Bipolar 1 disorder; Insomnia; Medical Facilities Section Director jennifer neck pain; Depression; Hyperlipidemia; BIPOLAR DISORDER [...] per orders. This note is dictated using [employer] voice recognition software. This note was dictated [...] [place], | | | | | | [place] [address] | | | | | | [phone] | | | | | | | | +--------+ + + + + | 11/20/ | Implant | Cardiology | Daljit Singletary, | Remote Device | | 2018 | Monitor | | MD [address] | Interrogation | | | | | [place], | (Primary Dx); | | | | | [place] [address] | Presence of | | | | | [phone] | permanent cardiac | | | | [...]
--- OUTSIDE RECORDS SUMMARY | ~2019-10-04 | XMS | Encounter Summary ---
Demographics + + + | Address | [address] | | | [place] [address] | + + + | Home Phone [...] Team Providers + +------+ + | Care Relationship Specialist Name | Role | Phone | [...] 2019 | | GASTROENTEROLOGY | [address], [place] | | | | | [address] [place] | [address] [place], [place] | | | | | [address] [place], [place] | [address] | | | | | [address] | | | | | | [phone] | | | +--------+ + + + [...] W | | | | | | [address] [place], | | | | | | [place] [address] | | | | | | [phone] | | | | | | | | +--------+ + + + + | 11/20/ | Implant | Cardiology | Daljit Singletary, | Remote Device | | 2019 | Monitor | | MD [address] | Interrogation | | | | | [place], | (Primary Dx); | | | | | [place] [address] | Presence of | | | | | [phone] | permanent cardiac | | | | [...]
--- OUTSIDE RECORDS SUMMARY | ~2019-10-04 | XMS | Encounter Summary ---
Demographics + + + | Address | [address] [place] [address] | | | [place] [address] | + + + | Home Phone [...] [place] | | | | | [address] | | + + + + + Care Team Providers + +------+ + | Care Public Health Epidemiologist Name | Role | Phone | + [...] | | 2019 | | Center at [facility] [address] | [address] | | | | | [address] | [place], [place] | | | | | Mailcode: [place] | [address] | | | | | [facility] and | [phone] | | | | | [place] [address] | | | | | | [place], [place] | | | | | | [address] | | | | | | [phone] | | | +--------+ + + + [...]
--- OUTSIDE RECORDS SUMMARY | ~2019-10-04 | XMS | Encounter Summary ---
Demographics + + + | Address | [address] | | | [place] [address] | + + + | Home Phone [...] Team Providers + +------+ + | Care Orange Picking Supervisor Name | Role | Phone | [...] type ER | [address] | [address] | | | | | FUP | [place] | [place], | | | | | Procedures | [place], [place] | [place] [address] | | | | | FUP - SUW & | [address] | Phone: | | | | | EVM PT, LAST | Phone: | [phone] | | | | | SEEN | [phone] | Fax: | | | | | 08-24-18 | Fax: | [phone] | | | | | | [phone] | | +--------+ + + + + [...] | | | | CENTER [address] | [address] [place] | (Primary Dx) | | | | [place], [place] | [place] [address] | | | | | [address] | [phone] | | | | | [phone] | | | +--------+ + + + [...] through Care Everywhere.Chest Pain, Unc ertain Cause (Azeri)documented in this encounter Medications at Time of [...] + + + +---------+ + + | Powderly-3 Fatty | CAPS, one capsule by | [...] W | | | | | | [place], | | | | | | [place] [address] | | | | | | [phone] | | | | | | | | +--------+ + + + + | 11/20/ | Implant | Cardiology | Daljit Singletary, | Remote Device | | 2018 | Monitor | | [address] | Interrogation | | | | | [place], | (Primary Dx); | | | | | [place] [address] | Presence of | | | | | [phone] | permanent cardiac | | | | [...] | | | | ANGELA MARADIAGA MD ([id number]) | | | | | | on [...] | | | | | | [employer] | | | | | [...] [address] | [place] | [phone] | | [facility] | | [address] | | | - LABORATORY | | [...] [address] | [place] | [phone] | | [facility] | | [address] | | | - LABORATORY | | [...] - 1.030 | [facility] | | | [place] | | | [facility] | | [...] ST. | [address] | [place] | [phone] | | [facility] | | [address] | | | - LABORATORY | | [...] + | [facility] | [address] | [place] | [phone] | | [facility] | | [address] | | | - LABORATORY | | [...] [address] | [place] | [phone] | | [facility] | | [address] | | | - LABORATORY | | [...] | | | | | | [employer] | | | | | [...] [address] | [place] | [phone] | | [facility] | | [address] | | | - LABORATORY | | [...] 13 | 7 - 18 mg/dL | [facility] | | | | | | [facility] | | | | | | MEDICAL | | | | | | CENTER - | | | | | | LABORATORY | | + + + + + + | Creatinine | 0.96 | 0.60 - 1.30 | [facility] | | | | | mg/dL | [facility] | | | | | | MEDICAL | | | | | | CENTER - | | | | | | LABORATORY | | + + + + + + | eGFR if not | >60Comment: GLOMERULAR | >=60 | [facility] | | | | FILTRATION | mL/min/1.73m2 | [facility] | | | [place] | RATE,ESTIMATED | | MEDICAL | | | | mL/min/1.95h4Mkey than | | CENTER - | | [...] ST. | [address] | [place] | [phone] | | [facility] | | [address] | | | - LABORATORY | | [...] | | | | | | [facility] | | [...] ST. | [address] | [place] | [phone] | | [facility] | | [address] | | | - LABORATORY | | [...] | | | | ANGELA MARADIAGA MD ([id number]) | | | | | | on [...]
--- OUTSIDE RECORDS SUMMARY | ~2019-10-04 | XMS | Encounter Summary ---
Demographics + + + | Address | [address] | | | [place] [address] | + + + | Home Phone [...] Team Providers + +------+ + | Care Hse Manager Name | Role | Phone | [...] loss | [address] | [address] [place], | | | | | Anxiety | [address] [place] | [address] [address] | | | | | disorder, | [address] | [place], | | | | | unspecified | [place], [place] | [place] [address] | | | | | Chronic | [address] | Phone: | | | | | pain | Phone: | [phone] | | | | | syndrome | [phone] | Fax: | | | | | Procedures | Fax: | [phone] | | | | | office visit | [phone] | | +--------+--------+ + + + + Encounter Details +--------+---------+ + + + | Date | Type | Department | Care Team | Description | +--------+---------+ + + + | 12/26/ | Office | [facility] | Emmanuel Daniel MD | Functional diarrhea | | 2019 | Visit | GASTROENTEROLOGY | [address] [place], [place] | (Primary Dx); | | | | [address] [place] | [address] [place], [place] | Gastrointestinal | | | | [address] [place], [place] | [address] | hemorrhage | | | | [address] | | associated with | | | | [phone] | | anorectal source; | | | [...] | | | | | | [place] [address] | | | | | | [phone] | | | | | | | | +--------+ + + + + | 11/20/ | Implant | Cardiology | Daljit Singletary, | Remote Device | | 2019 | Monitor | | [facility] | Interrogation | | | | | [place], | (Primary Dx); | | | | | [place] [address] | Presence of | | | | | [phone] | permanent cardiac | | | | [...]
--- OUTSIDE RECORDS SUMMARY | ~2019-10-04 | XMS | Encounter Summary ---
Demographics + + + | Address | [address] | | | [place] [address] | + + + | Home Phone [...] Team Providers + +------+ + | Care Chore Worker Name | Role | Phone | [...] + | 06/20/ | Telephone | [facility] | Daljit Singletary, | Chest Pain | | 2018 | | CARDIOLOGY [address] | MD [address] [place] | | | | | [place], | [place], | | | | | [place] [address] | [place] [address] | | | | | [phone] | [phone] | | | | | | | [...] [place], | | | | | | [place] [address] | | | | | | [phone] | | | | | | | | +--------+ + + + + | 11/20/ | Implant | Cardiology | Daljit Singletary, | Remote Device | 2018 | Monitor | | [facility] | Interrogation | | | | | [place], | (Primary Dx); | | | | | [place] [address] | Presence of | | | | | [phone] | permanent cardiac | | | | [...]
--- OUTSIDE RECORDS SUMMARY | ~2019-10-04 | XMS | Encounter Summary ---
Demographics + + + | Address | [address] | | | [place] [address] | + + + | Home Phone [...] Providers + +------+ + | Care Coal Mine Inspector Name | Role | Phone | [...] [address] | | | | | [place], | [place], | | | | | [place] [address] | [place] [address] | | | | | [phone] | [phone] | | | | | | | [...] W | | | | | | [place], | | | | | | [place] [address] | | | | | | [phone] | | | | | | | | +--------+ + + + + | 11/20/ | Implant | Cardiology | Daljit Singletary, | Remote Device | | 2018 | Monitor | | [address] | Interrogation | | | | | [place], | (Primary Dx); | | | | | [place] [address] | Presence of | | | | | [phone] | permanent cardiac | | | | [...] Resulting Agency Comment | + + | [facility] | + + + +---------+ + [...] [facility]ing [facility] Comment | + + | [facility] | + + + +---------+ + [...] Resulting Agency Comment | + + | [facility] | + + + +---------+ + [...] Resulting Agency Comment | + + | [facility] | + + + +---------+ + [...] Resulting Agency Comment | + + | [facility] | + + + +---------+ + [...] Resulting Agency Comment | + + | [facility] | + + + +---------+ [...] Resulting Agency Comment | + + | [facility] | + + + +---------+ + [...] Resulting Agency Comment | + + | [facility] | + + + +---------+ + [...] Resulting Agency Comment | + + | [facility] | + + + +---------+ + [...] [facility]ing [facility] Comment | + + | [facility] | + + + +---------+ [...] Resulting Agency Comment | + + | [facility] | + + + +---------+ + [...] Resulting Agency Comment | + + | [facility] | + + + +---------+ [...] Resulting Agency Comment | + + | [facility] | + + + +---------+ + [...] Resulting Agency Comment | + + | [facility] | + + + +---------+ + [...] Resulting Agency Comment | + + | [facility] | + + + +---------+ [...] Resulting Agency Comment | + + | [facility] | + + + +---------+ [...]
--- OUTSIDE RECORDS SUMMARY | ~2019-10-04 | XMS | Encounter Summary ---
Demographics + + + | Address | [address] | | | [place] [address] | + + + | Home Phone [...] Team Providers + +------+ + | Care Motorboat Mechanic Helper Name | Role | Phone [...] + | 09/05/ | Office | [facility] | Geri Angel, | SINUS BRADYCARDIA | | 2012 | Visit | CARDIOLOGY [address] | DRUM WORKER [address] [place] | (Primary Dx); | | | | [place], | [place], [place] | Symptomatic PVCs; | | | | [place] [address] | [address] | Hypertension; | | | | [phone] | | Hyperlipidemia | +--------+---------+ + + [...] and/or ref er you to electrophysiology in [place]. 3. Return in 3 months, or sooner [...] he did not followup with electrophysiology in [place], so he has remained on diltiaze m [...] Family Status Relation Status Age Mother 62 [place] Father Alive Unknown health Brother Alive Sister [...] by mouth Ken y. 30 tablet 6 [place]-3 Fatty Acids (SALMON OIL-1000 PO) Active CAPS, [...] Sanchez Date: September 05, 2013 : 1960 Medical/Surgery Registered Nurse: PARISA Velazquez Device Preschool Substitute Teacher: [email or web address] Sense (mV) Impedance (?) Capture (V) Capture (ms) A Lead 4-5.6 417 1.5 0.12 RV Lead >31.36 533 2.0 0.09 LV Lead Battery Impedance (?): 452 Battery Voltage (V): 2.79 SC Interval (ms): 162 AR Interval (ms): 245 VA Conduction: Mode Switch Events: 1 % of time: <0.1 -HEAD OF MARKETING ADOMETRY: <0.1% AP-HEAD OF MARKETING ADOMETRY: 0.1% -VS: 22.7% AP-VS: 77.1% HEAD OF MARKETING ADOMETRY: Magnetic Rate: 85 LINDA: 65 LEAH: Current [...] ventricular arrhythmia performed by Dr. Gambino at [facility] on 01/30/2013. Patient had spontaneous [...] to go back in 3 days to [place] for an attempt of ablation under general [...] He is upgraded to class I of [place] Heart Ass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 There are no [...] he would like to see electrophysiology in [place] rather than [place] as he paulino s family there, if [...] made to ensure accuracy; however, inadvertent computerized x ray examiner of aircraft errors may be pre sent. Electronically signed [...] | | | | | | [place] [address] | | | | | | [phone] | | | | | | | | +--------+ + + + + | 11/20/ | Implant | Cardiology | Daljit Singletary, | Remote Device | | 2019 | Monitor | | MD [address] [facility] | Interrogation | | | | | [place], | (Primary Dx); | | | | | [place] [address] | Presence of | | | | | [phone] | permanent cardiac | | | | [...]
--- OUTSIDE RECORDS SUMMARY | ~2019-10-04 | XMS | Encounter Summary ---
Demographics + + + | Address | [address] | | | [place] [address] | + + + | Home Phone [...] Providers + +------+ + | Care Hat Blocker Name | Role | Phone | + [...] | | | pain | [address] | [address] | | | | | Procedures | [place] | [place], | | | | | [place] Nuclear | [place], [place] | [place] | | | | | Stress Test | [address] | [address] | | | | | (Vasodilator | Phone: | Phone: | | | | | ) CHG | [phone] | [phone] | | | | | MYOCARDIAL | Fax: | Fax: | | | | | SPECT | [phone] | [phone] | | | | | MULTIPLE | [...] 2012 | | CARDIOLOGY [address] | LEASE ADMINISTRATION ANALYST [address] | interactions, chest | | | | [address] [place], | [place], [place] | pain) | | | | [place] [address] | [address] | | | | | [phone] | | | +--------+ + + + [...] W | | | | | | [address] [place], | | | | | | [place] [address] | | | | | | [phone] | | | | | | | | +--------+ + + + + | 11/20/ | Implant | Cardiology | Daljit Singletary, | Remote Device | | 2018 | Monitor | | MD [address] [place] [address] | Interrogation | | | | | [place], | (Primary Dx); | | | | | [place] [address] | Presence of | | | | | [phone] | permanent cardiac | | | | [...] Performed At | + + + | [facility] | [place] | | Department [address] [place] [address] [facility] | | [ rep ct street[address]] [ rep [facility] | | st zip] Signed | - IMAGING | | | | | Patient Name: MOE GAY | | | Physician: JACKLYN : 1960 Age: 53 Sex: M Unit | | | #: [id number] Exam Date: 12/06/13 Location: | | | [facility] Report #: [id number] Page: | | | %(RAD)RES..mtdd.print.filter("pg") of %(RAD) | | | RES..mtdd.print.filter("tpg") | | | | | | Accession Number: [id number] | | | PERSANTINE SESTAMIBI STRESS TEST, [...] Transcribed Date/Time: 12/07/2013 08:18 | | | Rug Inspector Helper: <<Signature on File>> | | | | | | Daljit Singletary MD [facility] FAS12/07/13 1321 <Electronically signed | | | by Daljit Singletary MD, [facility], [facility], ADELINE, [facility]> Daljit | | | MD [employer] [facility] ADELINE 12/07/13 0701 Rug Inspector Helper: Jessica | | | Giknloxlmbtmp61/16/14 0818 PARISA Garcia | | + + + + + + + + | Performing | Address | City/State/Zipcode | Phone Number | | Organization | | | | + + + + + | [facility] | [address] | [place] | [phone] | | [facility] | | [address] | | | - IMAGING | | | | + + + + + documented in this encounter Visit Diagnoses + + | Diagnosis | + + | Other chest pain - Primary | + + documented in this encounter
--- OUTSIDE RECORDS SUMMARY | ~2019-10-04 | XMS | Encounter Summary ---
Demographics + + + | Address | [address] | | | [place] [address] | + + + | Home Phone [...] Team Providers + +------+ + | Care Stacker Name | Role | Phone | + [...] + | 09/01/ | Telephone | [facility] | Silvia, | Appointment | | 2016 | | CARDIOLOGY [address] | PARISA [place] [address] | (Reschedule) | | | | [place], | [place], | | | | | [place] [address] | [place] [address] | | | | | [phone] | [phone] | | | | | | | [...] | | | | | | [place] [address] | | | | | | [phone] | | | | | | | | +--------+ + + + + | 11/20/ | Implant | Cardiology | Daljit Singletary, | Remote Device | | 2018 | Monitor | | [address] [place] | Interrogation | | | | | [place], | (Primary Dx); | | | | | [place] [address] | Presence of | | | | | [phone] | permanent cardiac | | | | [...]
--- OUTSIDE RECORDS SUMMARY | ~2019-10-04 | XMS | Encounter Summary ---
Demographics + + + | Address | [address] | | | [place] [address] | + + + | Home Phone [...] Team Providers + +------+ + | Care Care Asst Name | Role | Phone | [...] thrombosis), | | | | [address] [place] | [place], | bilateral (HCC) | | | | [place], [place] | [place] [address] | | | | | [address] | [phone] | | | | | [phone] | | | +--------+ + + + [...] + + + +---------+ + + | [place]-3 Fatty | CAPS, one capsule by | [...] | | | | | | | #[id number], exp 07/2016 | | | | | [...] | | | | | | [place] [address] | | | | | | [phone] | | | | | | | | +--------+ + + + + | 11/20/ | Implant | Cardiology | Daljit Singletary, | Remote Device | | 2018 | Monitor | | MD Sim [place] [address] | Interrogation | | | | | [place], | (Primary Dx); | | | | | [place] [address] | Presence of | | | | | [phone] | permanent cardiac | | | | [...] groin through the popliteal fossa | [facility] | | in both lower [...] conveyed to the ordering provider, by the shot dropper, | | | immediately following the exam. [...] to the ordering provider, by the | |shot dropper, immediately following the exam. | | | | | |Dictated and Signed by: Emmanuel Gibbons MD | | Electronically signed: 08/29/2015 3:25 PM | + + + + + + + | Performing | Address | City/State/Zipcode | Phone Number | | Organization | | | | + + + + + | [facility] | [address] | [place] | [phone] | | [facility] | | [address] | | | - IMAGING | | | | + + + + + documented in this encounter Visit Diagnoses + + | Diagnosis | + + | DVT (deep venous thrombosis), bilateral | + + documented in this encounter"
--- OUTSIDE RECORDS SUMMARY | ~2019-10-04 | XMS | Encounter Summary ---
Demographics + + + | Address | [address] | | | [place] [address] | + + + | Home Phone [...] Team Providers + +------+ + | Care Nailing Machine Operator Name | Role | Phone [...] | 01/05/ | Telephone | [facility] | Emmanuel Daniel MD | Other | | 2019 | | GASTROENTEROLOGY | [address], [place] | | | | | [address] [place] | [address] [place], [place] | | | | | [address] [place], [place] | [address] | | | | | [address] | | | | | | [phone] | | | +--------+ + + + [...] | | | | | | [place] [address] | | | | | | [phone] | | | | | | | | +--------+ + + + + | 11/20/ | Implant | Cardiology | Daljit Singletary, | Remote Device | | 2018 | Monitor | | MD [address] [place] [address] | Interrogation | | | | | [place], | (Primary Dx); | | | | | [place] [address] | Presence of | | | | | [phone] | permanent cardiac | | | | [...]
--- OUTSIDE RECORDS SUMMARY | ~2019-10-04 | XMS | Encounter Summary ---
Demographics + + + | Address | [address] | | | [place] [address] | + + + | Home Phone [...] Team Providers + +------+ + | Care Ribbon Inker Name | Role | Phone | + [...] | | CARDIOLOGY [address] | [address] [place] | | | | | [place], | [place], | | | | | [place] [address] | [place] [address] | | | | | [phone] | [phone] | | | | | | | [...] W | | | | | | [place], | | | | | | [place] [address] | | | | | | [phone] | | | | | | | | +--------+ + + + + | 11/20/ | Implant | Cardiology | Daljit Singletary, | Remote Device | | 2018 | Monitor | | [address] [facility] | Interrogation | | | | | [place], | (Primary Dx); | | | | | [place] [address] | Presence of | | | | | [phone] | permanent cardiac | | | | [...]
--- OUTSIDE RECORDS SUMMARY | ~2019-10-04 | XMS | Encounter Summary ---
Demographics + + + | Address | [address] | | | [place] [address] | + + + | Home Phone [...] Providers + +------+ + | Care Credit Card Analyst Name | Role | Phone | [...] + + | 08/23/ | Telephone | [facility] | AnshujohnsoncherelleDaljit, | Other (edema is | | 2015 | | CARDIOLOGY [address] | MD [address] | blood clots) | | | | [place], | [place], | | | | | [place] [address] | [place] [address] | | | | | [phone] | | | | | | | [...] | | | | | | [place] [address] | | | | | | [phone] | | | | | | | | +--------+ + + + + | 11/20/ | Implant | Cardiology | Daljit Singletary, | Remote Device | | 2018 | Monitor | | MD Sim [facility] | Interrogation | | | | | [place], | (Primary Dx); | | | | | [place] [address] | Presence of | | | | | [phone] | permanent cardiac | | | | [...]
--- OUTSIDE RECORDS SUMMARY | ~2019-10-04 | XMS | Encounter Summary ---
Demographics + + + | Address | [address] | | | [place] [address] | + + + | Home Phone [...] Team Providers + +------+ + | Care Turning Lathe Tender Name | Role | Phone | [...] | Visit | CARDIOLOGY [address] | RED CROSS WORKER [address] | Dx) | | | | [place], | [place] | | | | | [place] [address] | [address] | | | | | [phone] | | | +--------+---------+ + + + [...] Sanchez Date: December 21, 2012 : 1960 Senior Consultant: PARISA Velazquez Device Reed Cleaner: Medtronic Sense (mV) Impedance (?) Capture (V) Capture (ms) A Lead 4-5.6 423 1.5 0.09 RV Lead >31.36 539 2.0 0.09 LV Lead Battery Impedance (?): 301 Battery Voltage (V): 2.8 UT Interval (ms): 140 AR Interval (ms): 210 VA Conduction: Mode Switch Events: N/A % of time: -PRE ALGEBRA TEACHER: 0.6 AP-PRE ALGEBRA TEACHER: 1.3 -VS: 23.9 AP-VS: 74.2 PRE ALGEBRA TEACHER: Magnetic Rate: 85 LINDA: 65 LEAH: Current [...] | | | | | | [place] [address] | | | | | | [phone] | | | | | | | | +--------+ + + + + | 11/20/ | Implant | Cardiology | Gemini Shaistakenneth, | Remote Device | | 2019 | Monitor | | MD [address] [facility] | Interrogation | | | | | [place], | (Primary Dx); | | | | | [place] [address] | Presence of | | | | | [phone] | permanent cardiac | | | | [...]
--- OUTSIDE RECORDS SUMMARY | ~2019-10-04 | XMS | Encounter Summary ---
Demographics + + + | Address | [address] | | | [place] [address] | + + + | Home Phone [...] Providers + +------+ + | Care School Cafeteria Head Cook Name | Role | Phone | [...] + + | 02/01/ | Telephone | [facility] | Silvia, | Other (unable to | | 2013 | | CARDIOLOGY [address] | PARISA [place] [address] | take the isosorbide) | | | | [place], | [place], | | | | | [place] [address] | [place] [address] | | | | | [phone] | [phone] | | | | | | | [...] W | | | | | | [place], | | | | | | [place] [address] | | | | | | [phone] | | | | | | | | +--------+ + + + + | 11/20/ | Implant | Cardiology | Daljit Singletary, | Remote Device | | 2018 | Monitor | | [address] [place] | Interrogation | | | | | [place], | (Primary Dx); | | | | | [place] [address] | Presence of | | | | | [phone] | permanent cardiac | | | | [...] of unspecified type of | | vessel, kletsel dehe wintun or graft | + + | Hypertension Unspecified essential hypertension | + + | Hyperlipidemia Other and unspecified hyperlipidemia | + + documented in this encounter"
--- OUTSIDE RECORDS SUMMARY | ~2019-10-04 | XMS | Encounter Summary ---
Demographics + + + | Address | [address] | | | [place] [address] | + + + | Home Phone [...] Team Providers + +------+ + | Care Orchid Superintendent Name | Role | Phone | [...] + | 06/26/ | Office | [facility] | Geri Angel, | Coronary artery | | 2015 | Visit | CARDIOLOGY [address] | PROTECTION CHIEF INDUSTRIAL PLANT [address] [place] | disease involving | | | | [place], | [place] [facility], [place] | saxman coronary | | | | [place] [address] | [address] | artery without | | | | [phone] | | angina pectoris | | | [...] occur with exertion. He went to [facility] at the end of for his [...] it. He is planning to travel to [facility] in the ve ry near future for up to a month due to his [id number]-urf having a significant stroke there MEDICAL, SURGICAL, [...] Preventative health care Coronary artery disease involving saxman coronary artery without angina pectoris Cannabis abuse, [...] by mouth Daily. 30 tabl et 6 [facility] Natural Products (OSTEO BI-FLEX/5-LOXIN ADVANCED PO) Take [...] 3rd dose, call 911 25 tablet 11 [place]-3 Fatty Acids (SALMON OIL-1000 PO) CAPS, one capsule by mouth daily twice daily ONE TOUCH DELICA LANCETS [facility] Check glucose as needed for hypoglycemia 100 [...] Daily. 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 Leads: Right atrium and right ventricle (dual [...] arrhythmia performed by Dr. Gambino at [facility] on 01/30/2013. Patient had spontaneous PVCs [...] to go back in 3 days to [place] for an attempt of ablation under [...] dizziness. He is in class I-II of [place] 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 T here are [...] this chart may have been created with Infobright voice recognition software. Occasi onal wrong-word or [...] W | | | | | | [place], | | | | | | [place] [address] | | | | | | [phone] | | | | | | | | +--------+ + + + + | 11/20/ | Implant | Cardiology | Daljit Singletary, | Remote Device | | 2019 | Monitor | | [address] [facility] | Interrogation | | | | | 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 Leads: Right atrium and right | | [...] + + | Coronary artery disease involving saxman coronary artery without angina pectoris - | | Primary | + + | SINUS BRADYCARDIA Sinoatrial node dysfunction | + + | Essential hypertension Unspecified essential hypertension | + + | Hyperlipidemia Other and unspecified hyperlipidemia | + + | Symptomatic PVCs Other premature beats | + + documented in this encounter
--- OUTSIDE RECORDS SUMMARY | ~2019-10-04 | XMS | Encounter Summary ---
Demographics + + + | Address | [address] | | | [place] [address] | + + + | Home Phone [...] Team Providers + +------+ + | Care Telegraphic Typewriter Mechanic Name | Role | Phone | [...] + | 12/23/ | Telephone | [facility] | [place], | Lab Order (due for | | 2017 | | CARDIOLOGY [address] | Janeen, COATING MACHINE OPERATOR HELPER [address] | fasting labs) | | | | [place], | [place], | | | | | [place] [address] | [place] [address] | | | | | [phone] | [phone] | | | | | | | [...] | | | | | | [place] [address] | | | | | | [phone] | | | | | | | | +--------+ + + + + | 11/20/ | Implant | Cardiology | Daljit Singletary, | Remote Device | 2018 | Monitor | | [facility] | Interrogation | | | | | [place], | (Primary Dx); | | | | | [place] [address] | Presence of | | | | | [phone] | permanent cardiac | | | | [...]
--- OUTSIDE RECORDS SUMMARY | ~2019-10-04 | XMS | Encounter Summary ---
Demographics + + + | Address | [address] | | | [place] [address] | + + + | Home Phone [...] + +------+ + | Care Paper Products Supervisor Name | Role | Phone | [...] | CARDIOLOGY [address] | [address] | Interrogation | | | | [place], | [place], | (Primary Dx); | | | | [place] [address] | [place] [address] | Presence of | | | | [phone] | [phone] | permanent cardiac | | | | [...] | | | | | | [place] [address] | | | | | | [phone] | | | | | | | | +--------+ + + + + | 11/20/ | Implant | Cardiology | Daljit Singletary, | Remote Device | | 2019 | Monitor | | MD 401 [facility] | Interrogation | | | | | [place], | (Primary Dx); | | | | | [place] [address] | Presence of | | | | | [phone] | permanent cardiac | | | | [...]
--- OUTSIDE RECORDS SUMMARY | ~2019-10-04 | XMS | Encounter Summary ---
Demographics + + + | Address | [address] | | | [place] [address] | + + + | Home Phone [...] Providers + +------+ + | Care Barrel Filler Head Name | Role | Phone | [...] + + | 01/25/ | Office | [facility] | Daljit Singletary, | Other chest pain | | 2012 | Visit | CARDIOLOGY [address] | [address] [place] | (Primary Dx); PVC's | | | | [place], | [place], | (premature | | | | [place] [address] | [place] [address] | ventricular | | | | [phone] | [phone] | contractions) | | | | | [...] note, lorraine painting has appointment to see land reclamation specialist for PVCs ablations consultation on January [...] tablet Take 1,000 mg by mouth Daily. [place]-3 Fatty Acids (SALMON OIL-1000 PO) CAPS, one [...] tablet Take 1,000 mg by mouth Daily. [place]-3 Fatty Acids (SALMON OIL-1000 PO) CAPS, one [...] | | | | | | [place] [address] | | | | | | [phone] | | | | | | | | +--------+ + + + + | 11/20/ | Implant | Cardiology | Daljit Singletary, | Remote Device | | 2018 | Monitor | | MD Sim [facility] | Interrogation | | | | | [place], | (Primary Dx); | | | | | [place] [address] | Presence of | | | | | [phone] | permanent cardiac | | | | [...]
--- OUTSIDE RECORDS SUMMARY | ~2019-10-04 | XMS | Encounter Summary ---
Demographics + + + | Address | [address] | | | [place] [address] | + + + | Home Phone [...] Team Providers + +------+ + | Care Novelties Sales Representative Name | Role | Phone | + +------+ + PCP | Unavailable | + +------+ + Encounter Details +--------+ + + + + | Date | Type | Department | Care Team | Description | +--------+ + + + + | 01/21/ | Emergency | [facility] | Kirill Dominique | Unspecified Chest | | 2009 | | [facility]ENTER | MD Jonas [address] | Pain | | | | EMERGENCY CENTER | [address] [place] | | | | | [address] | [address] | | | | | [place] | [phone] | | | | | [address] | | | | | | [phone] | | | +--------+ + + + [...] | | | | | | [place], | | | | | | [place] [address] | | | | | | [phone] | | | | | | | | +--------+ + + + + | 11/20/ | Implant | Cardiology | Daljit Singletary, | Remote Device | | 2019 | Monitor | | [address] [place] | Interrogation | | | | | [place], | (Primary Dx); | | | | | [place] [address] | Presence of | | | | | [phone] | permanent cardiac | | | | [...]
--- OUTSIDE RECORDS SUMMARY | ~2019-10-04 | XMS | Encounter Summary ---
Demographics + + + | Address | [address] | | | [place] [address] | + + + | Home Phone [...] Team Providers + +------+ + | Care Keno Terminal Operator Name | Role | Phone | [...] + + | 06/06/ | Office | [facility] | Silvia, | Essential | | 2019 | Visit | CARDIOLOGY [address] | PARISA [place] [address] | hypertension | | | | [place], | [place], | (Primary Dx); | | | | [place] [address] | [place] [address] | Sinoatrial node | | | | [phone] | [phone] | dysfunction (HCC) | | | | | | with symptomatic | | | | | | bradycardia; | | | | | | Symptomatic PVCs; | | | | | | Tachycardia; | | | | | | Coronary artery | | | | | | disease involving | | | | | | [place] coronary | | | | | | artery of [place] | | | | | | heart [...] encounter Patient Instructions Patient Instructions Julia Allen, Medicare Specialist - 06/06/2019 2:15 PM PDT1. Take [...] of -critical coronary artery dise ase involving [place] coronary artery of [place] heart without angina pectoris, essential hype rtension, [...] was seen in the emergency department at [facility] in [place] due to chest pain, no medication changes at that time. On 06/02/2019 [facility], irregular heart bet [...] Preventative health care Coronary artery disease involving [place] coronary artery of [place] heart without angina pectoris Cannabis abuse, daily [...] 3RD DOSE, CALL 911 100 tablet 3 [place]-3 Fatty Acids (SALMON OIL-1000 PO) CAPS, one capsule by mouth daily twice daily ondansetron (ZOFRAN ODT) 4 mg disintegrating tablet Take 4 mg by mouth every 8 hours as needed for Nausea. ONE TOUCH DELICA LANCETS [facility] [...] reviewed during visit today primarily from [facility]: LIPID Lab Results Component Value Date [...] BNP 48 06/02/2019 I reviewed records from [facility] for emergency department visit o n 06/02/2019 which is summarized in the HPI. RESULTS- I reviewed reports from [facility]: Ct Abdomen Pelvis W Contrast Result [...] ASSESSMENT: 1. Non-critical Coronary artery disease involving [place] coronary artery of [place] heart [facility] angina pectoris: A.Normal exercise sestamibi stress [...] performed by Dr Juan Diego Gambino at [facility] on 01/30/2013.Patient had spontaneous PVC'sfr [...] to go back in 3 days to [place] for an attempt of ablation under general [...] a normal stable device function. Estimated remaining [facility] longevity is 3.5 years. D. [...] visit, or sooner with concerns. Julia Clemente, Medicare Specialist am acting as a scribe on behalf of, and in the presenc e of PARISA Lomas. - Reji Church 06/06/2019 15:10 Janeen Clemente ARNP, personally performed the services described in this documentati on, as scribed in my presence and it is both accurate and complete. -PARISA Lomas 06/06/2019 Portions of this chart may have been created with AOMi voice recognition software. Occasi onal wrong-word or [...] | | | | | | [place] [address] | | | | | | [phone] | | | | | | | | +--------+ + + + + | 11/20/ | Implant | Cardiology | Sydni Singletary, | Remote Device | | 2018 | Monitor | | MD [address] [place] | Interrogation | | | | | [place], | (Primary Dx); | | | | | [place] [address] | Presence of | | | | | [phone] | permanent cardiac | | | | [...] MD | | | | | | ([id number]) on 06/06/2019 | | | | | [...] + + | Coronary artery disease involving [place] coronary artery of [place] heart without | | angina pectoris | + + | Syncope, unspecified syncope type | + + | Ascending thoracic aortic aneurysm (HCC) Thoracic aneurysm without mention of rupture | + + | Hyperlipidemia, mixed Mixed hyperlipidemia | + + documented in this encounter
--- OUTSIDE RECORDS SUMMARY | ~2019-10-04 | XMS | Encounter Summary ---
Demographics + + + | Address | [address] | | | [place] [address] | + + + | Home Phone [...] Providers + +------+ + | Care Tea Plantation Worker Name | Role | Phone | [...] 2017 | | CARDIOLOGY [address] | MOBILE HEALTH VEHICLE OPERATOR [address] | | | | | [place], | [place], [place] | | | | | [place] [address] | [address] | | | | | [phone] | | | +--------+--------+ + + + [...] | | | | | | [place], | | | | | | [place] [address] | | | | | | [phone] | | | | | | | | +--------+ + + + + | 11/20/ | Implant | Cardiology | Daljit Singletary, | Remote Device | | 2018 | Monitor | | [address] | Interrogation | | | | | [place], | (Primary Dx); | | | | | [place] [address] | Presence of | | | | | [phone] | permanent cardiac | | | | [...]
--- OUTSIDE RECORDS SUMMARY | ~2019-10-04 | XMS | Encounter Summary ---
Demographics + + + | Address | [address] | | | [place] [address] | + + + | Home Phone [...] Providers + +------+ + | Care Sales Consultant Insurance Name | Role | Phone | + [...] loss | [address] | [address], | | | | | Anxiety | [address] | [address] | | | | | disorder, | 101 | [place], | | | | | unspecified | [place], [place] | [place] [address] | | | | | Chronic | [address] | Phone: | | | | | pain | Phone: | [phone] | | | | | syndrome | [phone] | Fax: | | | | | Procedures | Fax: | [phone] | | | | | office visit | [phone] | | +--------+--------+ + + + + Encounter Details +--------+---------+ + + + | Date | Type | Department | Care Team | Description | +--------+---------+ + + + | 12/26/ | Office | [facility] | Emmanuel Daniel MD | Functional diarrhea | | 2019 | Visit | GASTROENTEROLOGY | [address], [place] | (Primary Dx); | | | | [address] | [address] [place], [place] | Gastrointestinal | | | | [address] [place], [place] | [address] | hemorrhage | | | | [address] | | associated with | | | | [phone] | | anorectal source; | | | [...] | | | | | | [place] [address] | | | | | | [phone] | | | | | | | | +--------+ + + + + | 11/20/ | Implant | Cardiology | Daljit Singletary, | Remote Device | | 2019 | Monitor | | [facility] | Interrogation | | | | | [place], | (Primary Dx); | | | | | [place] [address] | Presence of | | | | | [phone] | permanent cardiac | | | | [...]
--- OUTSIDE RECORDS SUMMARY | ~2019-10-04 | XMS | Encounter Summary ---
Demographics + + + | Address | [address] | | | [place] [address] | + + + | Home Phone [...] Providers + +------+ + | Care Principal Java Software Engineer Name | Role | Phone [...] + | 01/02/ | Telephone | [facility] | Daljit Singletary, | Other (chest pain) | | 2018 | | CARDIOLOGY [address] | MD [address] [place] | | | | | [place], | [place], | | | | | [place] [address] | [place] [address] | | | | | [phone] | [phone] | | | | | | | [...] W | | | | | | [place], | | | | | | [place] [address] | | | | | | [phone] | | | | | | | | +--------+ + + + + | 11/20/ | Implant | Cardiology | Daljit Singletary, | Remote Device | | 2018 | Monitor | | MD [facility] | Interrogation | | | | | [place], | (Primary Dx); | | | | | [place] [address] | Presence of | | | | | [phone] | permanent cardiac | | | | [...]
--- OUTSIDE RECORDS SUMMARY | ~2019-10-04 | XMS | Encounter Summary ---
Demographics + + + | Address | [address] | | | [place] [address] | + + + | Home Phone [...] Providers + +------+ + | Care Flooring Machine Operator Name | Role | Phone [...] | | | | exertion | | [address] [place] | | | | | Chest pain | | [place], [place] | | | | | on exertion | | [address] | | | | | | | Phone: | | | | | | | [phone] | | | | | | | Fax: | | | | | | | [phone] | +--------+--------+ + + + + Encounter Details +--------+ + + + + | Date | Type | Department | Care Team | Description | +--------+ + + + + | 04/27/ | [facility] | [facility] | Martell Hart | Chest pain on | | 2014 - | | [facility] | Sanjay Palacios MD | exertion (Primary | | | | [address] [place] | [address] | Dx); Dyspnea on | | 03/20/ | | [place] [address] | [place] | exertion; Essential | | 2014 | | [phone] | [address] | hypertension; Acute | | | | | | chest pain; | | | | | Parth Kraft, | Dizziness, | | | | | [address] | nonspecific; Mixed | | | | | [place] | anxiety depressive | | | | | [address] | disorder; PUD | | | | | [phone] | (peptic ulcer | | | | [...] might be different f rom the original. [facility] DISCHARGE SUMMARY Pt. Name/Age/: Moe Sanchez [...] 911 aka: NITROSTAT ONE TOUCH DELICA LANCETS [facility] [place] [place] Check glucose as needed for hypoglycemia OSTEO [...] Daily. to reduce urinary frequency - Lot #[id number], exp 07/2016 aka: RAPAFLO UNCODED MEDICATION - [...] hospital follow up Contact information: [address] [address] Call PARISA Russell. Specialty: Nurse Practitioner Why: As needed Contact information: [address] [place] [address] Condition: Patient being discharged with condition improved. Diet: Heart healthy, avoid acidic drinks and foods, spicy foods, too much coffee. Greater than 30 minutes were spent on discharge and coordination of post-hospital care. Electronically signed by: Thierry Fregoso DO, 03/20/2015 11:22 [facility] Portions of this chart may have been created with [employer] voice recognition software. Occasi onal wrong-word or [...] afford the prescribed medication, you can try opux-uwz-vdcgjyv acid blockers, such as Pepcid AC, Tagamet, [...] or as directed by your healthcare provider [id number] [employer]. [address] [place] [address]. All righ ts reserved. This information is [...] + + + +---------+ + + | Creston-3 Fatty | CAPS, one capsule by | [...] | | | | | | | #[id number], exp 07/2016 | | | | | [...] DO - 03/19/2015 10:09 PM PDT . [facility] PROGRESS NOTE Patient: Moe Sanchez : 1960: Age: 55 y.o. MedRec: [id number] PCP: Kirk French Admission date: 03/18/2015 Hospital [...] 03/18/15 1528 TROPONINI <0.01 <0.01 0.01 [facility] ECHOCARDIOGRAM REPORT STUDY DATE: 03/19/2015 PATIENT [...] changes. No results for input(s): PHART, PO2ART, XQJ8XTV, YZH9RMN, BEART, H0UTQXBR in the last 168 h ours. No results for input(s): SPECSOURCE, PHPOCB, HCO3, TCO2, BEART, BE, UUGK5GUL in the last 16 8 hours. Invalid input(s): IMCWH0YJ, EJKZ3GS Point of care glucose: No results for [...] minutes today. Thierry Fregoso DO 03/19/2015 22:09 [facility] Portions of this chart may have been created with [employer] voice recognition software. Occasi onal wrong-word or sound-alike substitutions may have occurred due to the inherent granger itations of voice recognition software. Please read the chart carefully and recognize, using context, where these substitutions have occurred Belén Cho RN - 03/19/2015 11:03 AM [id number] Report given to Marlen morejon who is [...] W | | | | | | [address] [place], | | | | | | [place] [address] | | | | | | [phone] | | | | | | | | +--------+ + + + + | 11/20/ | Implant | Cardiology | Daljit Singletary, | Remote Device | | 2018 | Monitor | | [facility] | Interrogation | | | | | [place], | (Primary Dx); | | | | | [place] [address] | Presence of | | | | | [phone] | permanent cardiac | | | | [...] At | + + + | [facility] ECHOCARDIOGRAM REPORT | | | STUDY [...] | | Signed by: Daljit Singletary MD [facility] 03/19/2015 15:44 | | | Oyster Bed Worker: Dewey Valdez RDMS | | + + [...] | | | | | | [employer] | | | | | [...] ST. | [address] | [place] | [phone] | | [facility] | | [address] | | | - LABORATORY | | [...] | mL/min/1.73m2 | MICHELLE | | | RUSSIAN | RATE,ESTIMATED | | MEDICAL | | | | mL/min/1.66c7Nsse than | | CENTER - | | [...] [address] | [place] | [phone] | | [facility] | | [address] | | | - LABORATORY | | [...] [address] | [place] | [phone] | | [facility] | | [address] | | | - LABORATORY | | [...] | | | | | | [employer] | | | | | [...] ST. | [address] | [place] | [phone] | | [facility] | | [address] | | | - LABORATORY | | [...] [address] | [place] | [phone] | | [facility] | | [address] | | | - LABORATORY | | [...] [address] | [place] | [phone] | | [facility] | | [address] | | | - LABORATORY | | [...] [address] | [place] | [phone] | | [facility] | | [address] | | | - LABORATORY | | [...] + | [facility] | [address] | [place] | [phone] | | [facility] | | [address] | | | - LABORATORY | | [...] | | | | | | [employer] | | | | | [...] + | [address] [facility] | [address] | [place] | [phone] | | [facility] | | [address] | | | - LABORATORY | | [...] [address] | [place] | [phone] | | [facility] | | [address] | | | - LABORATORY | | [...] | | | FILTRATION | mL/min/1.73m2 | [facility] | | | RUSSIAN | RATE,ESTIMATED | | MEDICAL | | | | mL/min/1.99n1Lijt than | | CENTER - | | [...] + | [facility] | [address] | [place] | [phone] | | [facility] | | [address] | | | - LABORATORY | | [...] [address] | [place] | [phone] | | [facility] | | [address] | | | - LABORATORY | | [...] Dysthymic disorder | + + | PUD (peptic ulcer disease) Peptic ulcer, unspecified site, unspecified as acute or | | chronic, without mention of hemorrhage, perforation, or obstruction | + [...] | | First dose on 03/18/15 at 2200 | | PM PDT | [...]
--- OUTSIDE RECORDS SUMMARY | ~2019-10-04 | XMS | Encounter Summary ---
Demographics + + + | Address | [address] | | | [place] [address] | + + + | Home Phone [...] Team Providers + +------+ + | Care Cap Maker Name | Role | Phone | [...] | | CARDIOLOGY [address] | [address] [place] | | | | | [place], | [place], | | | | | [place] [address] | [place] [address] | | | | | [phone] | [phone] | | | | | | | [...] | | | | | | [place] [address] | | | | | | [phone] | | | | | | | | +--------+ + + + + | 11/20/ | Implant | Cardiology | Daljit Singletary, | Remote Device | | 2019 | Monitor | | [facility] | Interrogation | | | | | [place], | (Primary Dx); | | | | | [place] [address] | Presence of | | | | | [phone] | permanent cardiac | | | | [...] + | [facility] | [address] | [place] | [phone] | | [facility] | | [address] | | | - LABORATORY | | | | + + + + + | [facility] | [address] | [place] | | | [facility] | | [address] | | | - LABORATORY | | [...]
--- OUTSIDE RECORDS SUMMARY | ~2019-10-04 | XMS | Encounter Summary ---
Demographics + + + | Address | [address] | | | [place] [address] | + + + | Home Phone [...] Providers + +------+ + | Care Assembler Camper Name | Role | Phone | + [...] + | 06/27/ | Telephone | [facility] | Michael Amanda, | ED Follow-up (s/p | | 2014 | | MEDICINE [place] | DO [address] | [facility] | | | | [address] | [place] | | | | | [place] | [address] | | | | | [address] | | | | | | [phone] | | | +--------+ + + + [...] W | | | | | | [place], | | | | | | [place] [address] | | | | | | [phone] | | | | | | | | +--------+ + + + + | 11/20/ | Implant | Cardiology | Daljit Singletary, | Remote Device | | 2018 | Monitor | | MD [address] [place] [address] | Interrogation | | | | | [place], | (Primary Dx); | | | | | [place] [address] | Presence of | | | | | [phone] | permanent cardiac | | | | [...]
--- OUTSIDE RECORDS SUMMARY | ~2019-10-04 | XMS | Encounter Summary ---
Demographics + + + | Address | [address] | | | [place] [address] | + + + | Home Phone [...] Team Providers + +------+ + | Care Split Leather Mosser Name | Role | Phone | + [...] | | CARDIOLOGY [address] | [address] [place] | | | | | [place], | [place], | | | | | [place] [address] | [place] [address] | | | | | [phone] | [phone] | | | | | | | [...] W | | | | | | [place], | | | | | | [place] [address] | | | | | | [phone] | | | | | | | | +--------+ + + + + | 11/20/ | Implant | Cardiology | Daljit Singletary, | Remote Device | | 2018 | Monitor | | [facility] | Interrogation | | | | | [place], | (Primary Dx); | | | | | [place] [address] | Presence of | | | | | [phone] | permanent cardiac | | | | [...]
--- OUTSIDE RECORDS SUMMARY | ~2019-10-04 | XMS | Encounter Summary ---
Demographics + + + | Address | [address] | | | [place] [address] | + + + | Home Phone [...] Providers + +------+ + | Care Sack Filler Name | Role | Phone | [...] | on | GASTROENTEROLOGY | [address], [place] | | | | | [address] [place] | 210 [place], [place] | | | | | 210 [place], [place] | [address] | | | | | [address] | | | | | | [phone] | | | +--------+ + + + [...] | | | | | | [place] [address] | | | | | | [phone] | | | | | | | | +--------+ + + + + | 11/20/ | Implant | Cardiology | Daljit Singletary, | Remote Device | 2018 | Monitor | | [facility] | Interrogation | | | | | [place], | (Primary Dx); | | | | | [place] [address] | Presence of | | | | | [phone] | permanent cardiac | | | | [...]
--- OUTSIDE RECORDS SUMMARY | ~2019-10-04 | XMS | Encounter Summary ---
Demographics + + + | Address | [address] | | | [place] [address] | + + + | Home Phone [...] Team Providers + +------+ + | Care Behaviorist Name | Role | Phone | + [...] | 03/02/ | Telephone | [facility] | Daljit Singletary, | Other | | 2013 | | CARDIOLOGY [address] | MD [address] [place] | | | | | [place], | [place], | | | | | [place] [address] | [place] [address] | | | | | [phone] | [phone] | | | | | | | [...] | | | | | | [place], | | | | | | [place] [address] | | | | | | [phone] | | | | | | | | +--------+ + + + + | 11/20/ | Implant | Cardiology | Daljit Singletary, | Remote Device | | 2018 | Monitor | | [address] | Interrogation | | | | | [place], | (Primary Dx); | | | | | [place] [address] | Presence of | | | | | [phone] | permanent cardiac | | | | [...]
--- OUTSIDE RECORDS SUMMARY | ~2019-10-04 | XMS | Encounter Summary ---
Demographics + + + | Address | [address] | | | [place] [address] | + + + | Home Phone [...] Providers + +------+ + | Care Budget Accountant Name | Role | Phone | + [...] 2015 | | CARDIOLOGY [address] | HR ANALYST [address] [place] | | | | | [place], | [place], [place] | | | | | [place] [address] | [address] | | | | | [phone] | | | +--------+--------+ + + + [...] | | | | | [place], | | | | | | [place] [address] | | | | | | [phone] | | | | | | | | +--------+ + + + + | 11/20/ | Implant | Cardiology | Daljit Singletary, | Remote Device | | 2018 | Monitor | | [address] | Interrogation | | | | | [place], | (Primary Dx); | | | | | [place] [address] | Presence of | | | | | [phone] | permanent cardiac | | | | [...]
--- OUTSIDE RECORDS SUMMARY | ~2019-10-04 | XMS | Encounter Summary ---
Demographics + + + | Address | [address] | | | [place] [address] | + + + | Home Phone [...] Providers + +------+ + | Care Procurement Manager Name | Role | Phone [...] [address] | | | | | [place], | [place], | | | | | [place] [address] | [place] [address] | | | | | [phone] | [phone] | | | | | | | [...] W | | | | | | [place], | | | | | | [place] [address] | | | | | | [phone] | | | | | | | | +--------+ + + + + | 11/20/ | Implant | Cardiology | Daljit Singletary, | Remote Device | | 2018 | Monitor | | [address] | Interrogation | | | | | [place], | (Primary Dx); | | | | | [place] [address] | Presence of | | | | | [phone] | permanent cardiac | | | | [...]
--- OUTSIDE RECORDS SUMMARY | ~2019-10-04 | XMS | Encounter Summary ---
Demographics + + + | Address | [address] | | | [place] [address] | + + + | Home Phone [...] Providers + +------+ + | Care Special Education Bus Driver Name | Role | Phone [...] + + | 05/26/ | Emergency | [facility] | Lizbeth Green | Atypical chest pain | | 2013 | | [facility] | DO Nicole Fink | (Primary Dx); | | | | CENTER [address] | [place], [place] | Anxiety | | | | [place], [place] | [address] | | | | | [address] | | | | | | [phone] | | | +--------+ + + + [...] + + + +---------+ + + | Burlison-3 Fatty | CAPS, one capsule by | [...] W | | | | | | [place], | | | | | | [place] [address] | | | | | | [phone] | | | | | | | | +--------+ + + + + | 11/20/ | Implant | Cardiology | Daljit Singletary, | Remote Device | | 2018 | Monitor | | MD Sim [facility] | Interrogation | | | | | [place], | (Primary Dx); | | | | | [place] [address] | Presence of | | | | | [phone] | permanent cardiac | | | | [...] the uneventful IV administration of 80 mL [id number] contrast. Timing of | | contrast bolus [...] + | MISCELLANEOUS LAB | | | [phone] | + +---------+ + + | MISCELANIOUS LAB | | | [phone] | + +---------+ + + Troponin I [...] + | [facility] | [address] | [place], [place] | [phone] | | [facility] | | [address] | | | - LABORATORY | | | | + + + + + | [facility] | [address] | [place], [place] | | | [facility] | | [address] | | | - LABORATORY | | [...] 12 | 7 - 18 mg/dL | [facility] | | | | | | [facility] | | | | | | MEDICAL | | | | | | CENTER - | | | | | | LABORATORY | | + + + + + + | Creatinine | 0.89 | 0.60 - 1.30 | [facility] | | | | | mg/dL | [facility] | | | | | | MEDICAL | | | | | | CENTER - | | | | | | LABORATORY | | + + + + + + | eGFR if not | >60Comment: GLOMERULAR | >=60 | [facility] | | | | FILTRATION | mL/min/1.73m2 | [facility] | | | MICRONESIAN | RATE,ESTIMATED | | MEDICAL | | | | mL/min/1.70o8Wsrr than | | CENTER - | | [...] + | [facility] | [address] | [place] | [phone] | | [facility] | | [address] | | | - LABORATORY | | | | + + + + + | [facility] | [address] | [place] | | | [facility] | | [address] | | | - LABORATORY | | [...] + | [facility] | [address] | [place] | [phone] | | [facility] | | [address] | | | - LABORATORY | | | | + + + + + | [facility] | [address] | [place] | | | [facility] | | [address] | | | - LABORATORY | | [...]
--- OUTSIDE RECORDS SUMMARY | ~2019-10-04 | XMS | Encounter Summary ---
Demographics + + + | Address | [address] | | | [place] [address] | + + + | Home Phone [...] Providers + +------+ + | Care Digital Marketing Analyst Name | Role | Phone [...] Provider Unknown | | | | | [place], [place] | [phone] | | | | | [address] | | | | | | [phone] | | | +--------+ + + + [...] | | | | | | [place] [address] | | | | | | [phone] | | | | | | | | +--------+ + + + + | 11/20/ | Implant | Cardiology | Daljit Singletary, | Remote Device | | 2019 | Monitor | | [facility] | Interrogation | | | | | [place], | (Primary Dx); | | | | | [place] [address] | Presence of | | | | | [phone] | permanent cardiac | | | | [...]
--- OUTSIDE RECORDS SUMMARY | ~2019-10-04 | XMS | Encounter Summary ---
Demographics + + + | Address | [address] | | | [place] [address] | + + + | Home Phone [...] Providers + +------+ + | Care Assistant Property Manager Name | Role | Phone | + +------+ + PCP | Unavailable | + +------+ + Encounter Details +--------+ + + + + | Date | Type | Department | Care Team | Description | +--------+ + + + + | 09/08/ | [facility] | [facility] | Naresh Mckeon | | | 1998 | Encounter | MED CTR SLEEP | MD Chaya [address] | | | | | CENTER [address] | [place] | | | | | [place] | [place] [address] | | | | | [address] | [phone] | | | | | [phone] | | | +--------+ + + + [...] | | | | | | [place] [address] | | | | | | [phone] | | | | | | | | +--------+ + + + + | 11/20/ | Implant | Cardiology | Daljit Singletary, | Remote Device | | 2019 | Monitor | | MD [address] | Interrogation | | | | | [place], | (Primary Dx); | | | | | [place] [address] | Presence of | | | | | [phone] | permanent cardiac | | | | [...]
--- OUTSIDE RECORDS SUMMARY | ~2019-10-04 | XMS | Encounter Summary ---
Demographics + + + | Address | [address] | | | [place] [address] | + + + | Home Phone [...] Providers + +------+ + | Care Project Accountant Name | Role | Phone | [...] [address] | | | | | [place], | [place], | | | | | [place] [address] | [place] [address] | | | | | [phone] | [phone] | | | | | | | [...] | | | | | | [place], | | | | | | [place] [address] | | | | | | [phone] | | | | | | | | +--------+ + + + + | 11/20/ | Implant | Cardiology | Daljit Singletary, | Remote Device | | 2018 | Monitor | | [address] [place] | Interrogation | | | | | [place], | (Primary Dx); | | | | | [place] [address] | Presence of | | | | | [phone] | permanent cardiac | | | | [...]
--- OUTSIDE RECORDS SUMMARY | ~2019-10-04 | XMS | Encounter Summary ---
Demographics + + + | Address | [address] | | | [place] [address] | + + + | Home Phone [...] | CARDIOLOGY [address] | MD [address] [place] | | | | | [place], | [place], | | | | | [place] [address] | [place] [address] | | | | | [phone] | [phone] | | | | | | | [...] | | | | | | [place], | | | | | | [place] [address] | | | | | | [phone] | | | | | | | | +--------+ + + + + | 11/20/ | Implant | Cardiology | Daljit Singletary, | Remote Device | | 2018 | Monitor | | [facility] | Interrogation | | | | | [place], | (Primary Dx); | | | | | [place] [address] | Presence of | | | | | [phone] | permanent cardiac | | | | [...]
--- OUTSIDE RECORDS SUMMARY | ~2019-10-04 | XMS | Encounter Summary ---
Demographics + + + | Address | [address] | | | [place] [address] | + + + | Home Phone [...] Team Providers + +------+ + | Care Sheep Sorter Name | Role | Phone | [...] Refill | | 2012 | | MEDICINE [place] | DO [address] | | | | | [address] | [place] | | | | | [place] | [address] | | | | | [address] | | | | | | [phone] | | | +--------+--------+ + + + [...] W | | | | | | [place], | | | | | | [place] [address] | | | | | | [phone] | | | | | | | | +--------+ + + + + | 11/20/ | Implant | Cardiology | Daljit Singletary, | Remote Device | | 2018 | Monitor | | [facility] | Interrogation | | | | | [place], | (Primary Dx); | | | | | [place] [address] | Presence of | | | | | [phone] | permanent cardiac | | | | [...]
--- OUTSIDE RECORDS SUMMARY | ~2019-10-04 | XMS | Encounter Summary ---
Demographics + + + | Address | [address] | | | [place] [address] | + + + | Home Phone [...] | | CARDIOLOGY [address] | Janeen, [employer] TECHNICIAN [address] | reading) | | | | [place], | [place], | | | | | [place] [address] | [place] [address] | | | | | [phone] | [phone] | | | | | | | [...] | | | | | | [place] [address] | | | | | | [phone] | | | | | | | | +--------+ + + + + | 11/20/ | Implant | Cardiology | Daljit Singletary, | Remote Device | | 2018 | Monitor | | [facility] [place] | Interrogation | | | | | [facility], | (Primary Dx); | | | | | [place] [address] | Presence of | | | | | [phone] | permanent cardiac | | | | [...]
--- OUTSIDE RECORDS SUMMARY | ~2019-10-04 | XMS | Encounter Summary ---
Demographics + + + | Address | [address] | | | [place] [address] | + + + | Home Phone [...] Team Providers + +------+ + | Care Redye Hand Name | Role | Phone | [...] [address] | | | | [place], | [place], | | | | | [place] [address] | [place] [address] | | | | | [phone] | [phone] | | | | | | | [...] 2019 | Visit | | PRAISA [address] | | | | | | [place], | | | | | | [place] [address] | | | | | | [phone] | | | | | | | | +--------+ + + + + | 11/20/ | Implant | Cardiology | Daljit Singletary, | Remote Device | | 2018 | Monitor | | [address] [place] | Interrogation | | | | | [place], | (Primary Dx); | | | | | [place] [address] | Presence of | | | | | [phone] | permanent cardiac | | | | [...] Comment | + + | [facility] | + + + +---------+ + + [...] Comment | + + | [facility] | + + + +---------+ + + [...]
--- OUTSIDE RECORDS SUMMARY | ~2019-10-04 | XMS | Encounter Summary ---
Demographics + + + | Address | [address] | | | [place] [address] | + + + | Home Phone [...] Team Providers + +------+ + | Care Peer Specialist Name | Role | Phone | + +------+ + | Kirk French MD | PCP | | + +------+ + Encounter Details +--------+ + + + + | Date | Type | Department | Care Team | Description | +--------+ + + + + | 01/18/ | Hospital | [facility] | Conversion | Diagnosis unknown | | 2017 | Encounter | CONVERSION [address] | Transaction, | | | | | [address] | Provider Unknown | | | | | [place], [place] | [phone] | | | | | [address] | | | | | | [phone] | | | +--------+ + + + [...] + + +---------+ + + | [place]-3 Fatty | CAPS, one capsule by [...] | | | | | | [place] [address] | | | | | | [phone] | | | | | | | | +--------+ + + + + | 11/20/ | Implant | Cardiology | Daljit Singletary, | Remote Device | | 2019 | Monitor | | MD [address] [facility] | Interrogation | | | | | [place], | (Primary Dx); | | | | | [place] [address] | Presence of | | | | | [phone] | permanent cardiac | | | | [...]
--- OUTSIDE RECORDS SUMMARY | ~2019-10-04 | XMS | Encounter Summary ---
Demographics + + + | Address | [address] | | | [place] [address] | + + + | Home Phone [...] Team Providers + +------+ + | Care Foster Care Therapist Name | Role | Phone | + +------+ + | Micheal Amanda DO | PCP | | + +------+ + Encounter Details +--------+ + + + + | Date | Type | Department | Care Team | Description | +--------+ + + + + | 05/11/ | Hospital | [facility] | Conversion | Lumbago; | | 2013 | Encounter | [facility]ENTER | Transaction, | Postlaminectomy | | | | CLINICAL DECISION | Provider Unknown | syndrome, cervical | | | | [address] | | region; Cervicalgia | | | | [employer], [place] | (Fax) | | | | | [address] | Cesar, | | | | | [phone] | MD Gamaliel | | +--------+ + [...] + + + +---------+ + + | [place]-3 Fatty | CAPS, one capsule by | [...] Date of Service: 05/11/14 150 Status: Signed Adult Nurse Practitioner: Meliza Macario RN (Registered Nurse) Pt discharged home, discharge instructions were reviewed, prescriptions provided, and quest ions answered. IV discontinued- gauze and tape applied to site. onver fatemeh Transaction, Provider Unknown - 05/11/2014 2:23 PM PDT Nurse Progress Note by Heike Mckeon RN at 05/11/14 1428 Author: Heike Mckeon RN Service: (none) Author Type: Registered Nurse Filed: 05/11/14 1424 Date of Service: 05/11/14 142 Status: Signed Adult Nurse Practitioner: Heike Mckeon RN (Registered Nurse) Called doctor [...] W | | | | | | [place], | | | | | | [place] [address] | | | | | | [phone] | | | | | | | | +--------+ + + + + | 11/20/ | Implant | Cardiology | Daljit Singletary, | Remote Device | | 2018 | Monitor | | MD [facility] | Interrogation | | | | | [place], | (Primary Dx); | | | | | [place] [address] | Presence of | | | | | [phone] | permanent cardiac | | | | [...] | | | intrathecal use. See the coroner's juror examination for details of the | | | injection. Bone algorithm noncontrast technique with reformatted | | | sagittal and coronal images. Prior study for review : CT discogram | | | from 2004 was used to orient this examination given the transitional | | | anatomy of the lumbosacral junction FINDINGS: Control Board Operator is notable | | | for [...] for intrathecal use. See | | the coroner's juror examination for details of the injection. Bone algorithm noncontrast | | technique with reformatted sagittal and coronal images. Prior study for review : CT | | discogram from 2004 was used to orient this examination given the transitional anatomy | | of the lumbosacral junction FINDINGS: Control Board Operator is notable for a pacing system. [...]
--- OUTSIDE RECORDS SUMMARY | ~2019-10-04 | XMS | Encounter Summary ---
Demographics + + + | Address | [address] | | | [place] [address] | + + + | Home Phone [...] Providers + +------+ + | Care Glass Handler Name | Role | Phone | [...] | 06/17/ | Telephone | [facility] | Silvia, | Lab Order (due for | | 2015 | | CARDIOLOGY [address] | PARISA [place] [address] | fasting labs prior | | | | [place], | [place], | to appt) | | | | [place] [address] | [place] [address] | | | | | [phone] | [phone] | | | | | | | [...] | | | | | | [place] [address] | | | | | | [phone] | | | | | | | | +--------+ + + + + | 11/20/ | Implant | Cardiology | Daljit Singletary, | Remote Device | | 2018 | Monitor | | MD Chiquis [address]ro | Interrogation | | | | | [place], | (Primary Dx); | | | | | [place] [address] | Presence of | | | | | [phone] | permanent cardiac | | | | [...]
--- OUTSIDE RECORDS SUMMARY | ~2019-10-04 | XMS | Encounter Summary ---
Demographics + + + | Address | [address] | | | [place] [address] | + + + | Home Phone [...] Providers + +------+ + | Care Mill Order Scheduler Name | Role | Phone | + [...] | [address] [place] | [place] [address] | | | | | [address] | [phone] | | | | | [phone] | | | +--------+ + + + [...] | | | | | | [place] [address] | | | | | | [phone] | | | | | | | | +--------+ + + + + | 11/20/ | Implant | Cardiology | Daljit Singletary, | Remote Device | | 2018 | Monitor | | MD Chiquis [place] | Interrogation | | | | | [place], | (Primary Dx); | | | | | [place] [address] | Presence of | | | | | [phone] | permanent cardiac | | | | [...]
--- OUTSIDE RECORDS SUMMARY | ~2019-10-04 | XMS | Encounter Summary ---
Demographics + + + | Address | [address] | | | [place] [address] | + + + | Home Phone [...] | | | | Sinoatrial | Jose, MECHANICAL ENGINEERING PROFESSOR | [address] | | | | | node | [address] | [place], | | | | | dysfunction | [place] | [place] | | | | | (HCC) | [place], [place] | [address] | | | | | Coronary | [address] | Phone: | | | | | artery | Phone: | [phone] | | | | | disease | [phone] | Fax: | | | | | involving | Fax: | [phone] | | | | | [place] | [phone] | | | | | | coronary | | | | | | | artery of | | | | | | | [place] heart | | | | | | [...] | | | | | | Complete [place] | | | | | | | ECHO HEART | | | | | | | XTHORACIC,[place] | | | | | | | MPLETE W | | | | | | | DOPPLER [place] | | | | | | [...] | | | | Sinoatrial | Jose, MECHANICAL ENGINEERING PROFESSOR | [address] | | | | | node | [address] | [place], | | | | | dysfunction | [place] | [place] | | | | | ([facility] | [place], [place] | [address] | | | | | Coronary | [address] | Phone: | | | | | artery | Phone: | [phone] | | | | | disease | [phone] | Fax: | | | | | involving | Fax: | [phone] | | | | | [place] | [phone] | | | | | | coronary | | | | | | | artery of | | | | | | | [place] heart | | | | | | [...] | | | | | | Complete [place] | | | | | | | ECHO HEART | | | | | | | XTHORACIC,[place] | | | | | | | MPLETE W | | | | | | | DOPPLER [place] | | | | | | [...] + + + + | 06/16/ | [facility] | [facility] | Jose Angel, | Sinoatrial node | | 2016 | Encounter | MED CTR ECHO [address] | MECHANICAL ENGINEERING PROFESSOR [address] | dysfunction (HCC) | | | | [place] | [place], [place] | with symptomatic | | | | [place] [address] | [address] | bradycardia; | | | | [phone] | | Coronary artery | | | | | Juvenal Blake, | disease involving | | | | | Technologist | [place] coronary | | | | | | artery of [place] | | | | | | heart [...] + + +---------+ + + | [place]-3 Fatty | CAPS, one capsule by | [...] | | | | | | [place], | | | | | | [place] [address] | | | | | | [phone] | | | | | | | | +--------+ + + + + | 11/20/ | Implant | Cardiology | Sydni Singletary, | Remote Device | | 2018 | Monitor | | [address] [facility] | Interrogation | | | | | [place], | (Primary Dx); | | | | | [place] [address] | Presence of | | | | | [phone] | permanent cardiac | | | | [...] | | | | | | [place] coronary | | | | | | artery of [place] | | | | | | heart [...] Patient | [facility] | | [id number] Date of Study 06/16/2016 Number | - IMAGING | | Visit Number [id number] | | | Referring Physician JOSE ARMANDO JOSE Number Date of 1960 | | | Community Relations Specialist LUIS FERNANDO DUARTE Age | | | 56 year(s) Interpreting | | | GURJIT TROY | | | Art Coordinator SYDNI SINGLETARY, | | | Gender | | | Male Nurse Procedure Type of Study TTE | | | procedure: ECHO Complete. Procedure dateDate: 06/16/2016Start: 10:55 | | | AM Technical Quality: Adequate visualizationStudy Location: Echo | | | LabIndications: CAD [place] CORONARY ARTERY 414.01/ I25.10 and | | [...] BARRY Room Number SARAH | | Patient [id number] Date of Study 06/16/2016 Number Visit Number | | [id number] Referring Physician JOSE ARMANDO GARCIA Number | | Date of 1960 Community Relations Specialist LUIS FERNANDO DUARTE Age | | 56 year(s) Interpreting GURJIT TROY | | Art Coordinator SYDNI SINGLETARY | | Gender Male NurseProcedureType of Study TTE | | procedure: ECHO Complete.Procedure dateDate: 06/16/2016Start: 10:55 AMTechnical Quality: | | Adequate visualizationStudy Location: Echo LabIndications: CAD [place] CORONARY ARTERY | | 414.01/ I25.10 and [...] [address] | [place] | [phone] | | [facility] | | [address] | | | - IMAGING | | [...] + | Coronary artery disease involving [place] coronary artery of [place] heart without | | angina pectoris | + + | Ascending thoracic aortic aneurysm (HCC) Thoracic aneurysm without mention of rupture | + + documented in this encounter"
--- OUTSIDE RECORDS SUMMARY | ~2019-10-04 | XMS | Encounter Summary ---
Demographics + + + | Address | [address] | | | [place] [address] | + + + | Home Phone [...] Providers + +------+ + | Care Shoe Folder Name | Role | Phone | + +------+ + PCP | Unavailable | + +------+ + Encounter Details +--------+ + + + + | Date | Type | Department | Care Team | Description | +--------+ + + + + | 06/03/ | Hospital | [facility] | | | | 2008 | Encounter | MED CTR EMERGENCY | | | | | | [place] [address] | | | | | | [place] | | | | | | [address] | | | | | | [phone] | | | +--------+ + + + [...] | | | | | | [place] [address] | | | | | | [phone] | | | | | | | | +--------+ + + + + | 11/20/ | Implant | Cardiology | Daljit Singletary, | Remote Device | | 2018 | Monitor | | [address] [facility] | Interrogation | | | | | [place], | (Primary Dx); | | | | | [place] [address] | Presence of | | | | | [phone] | permanent cardiac | | | | [...]
--- OUTSIDE RECORDS SUMMARY | ~2019-10-04 | XMS | Encounter Summary ---
Demographics + + + | Address | [address] | | | [place] [address] | + + + | Home Phone [...] Providers + +------+ + | Care Silk Spotter Name | Role | Phone | + [...] [address] | | | | | | [place] [facility], [place] | (Fax) | | | | | [address] | | | | | | [phone] | | | +--------+ + + + [...] | | | | | | [place] [address] | | | | | | [phone] | | | | | | | | +--------+ + + + + | 11/20/ | Implant | Cardiology | Daljit Singletary, | Remote Device | | 2018 | Monitor | | [address] [facility] [place] | Interrogation | | | | | [place], | (Primary Dx); | | | | | [place] [address] | Presence of | | | | | [phone] | permanent cardiac | | | | [...]
--- OUTSIDE RECORDS SUMMARY | ~2019-10-04 | XMS | Encounter Summary ---
Demographics + + + | Address | [address] | | | [place] [address] | + + + | Home Phone [...] Providers + +------+ + | Care President And Ceo Name | Role | Phone | + [...] + | 07/01/ | Telephone | [facility] | Daljit Singletary, | Other (EKG) | | 2017 | | CARDIOLOGY [address] | MD [address] [place] | | | | | [place], | [place], | | | | | [place] [address] | [place] [address] | | | | | [phone] | [phone] | | | | | | | [...] | | | | | | [place] [address] | | | | | | [phone] | | | | | | | | +--------+ + + + + | 11/20/ | Implant | Cardiology | Daljit Singletary, | Remote Device | | 2018 | Monitor | | 401 [facility] | Interrogation | | | | | [place], | (Primary Dx); | | | | | [place] [address] | Presence of | | | | | [phone] | permanent cardiac | | | | [...]
--- OUTSIDE RECORDS SUMMARY | ~2019-10-04 | XMS | Encounter Summary ---
Demographics + + + | Address | [address] | | | [place] [address] | + + + | Home Phone [...] Providers + +------+ + | Care Commercial Agent Name | Role | Phone | + +------+ + PCP | Unavailable | + +------+ + Encounter Details +--------+ + + + + | Date | Type | Department | Care Team | Description | +--------+ + + + + | 12/16/ | Hospital | [facility] | | | | 2010 | Encounter | MED CTR LABORATORY | | | | | | [address] [place] | | | | | | [place] | | | | | | [address] | | | | | | [phone] | | | +--------+ + + + [...] | | | | | | [place] [address] | | | | | | [phone] | | | | | | | | +--------+ + + + + | 11/20/ | Implant | Cardiology | Daljit Singletary, | Remote Device | | 2018 | Monitor | | 401 [facility] | Interrogation | | | | | [place], | (Primary Dx); | | | | | [place] [address] | Presence of | | | | | [phone] | permanent cardiac | | | | [...]
--- OUTSIDE RECORDS SUMMARY | ~2019-10-04 | XMS | Encounter Summary ---
Demographics + + + | Address | [address] | | | [place] [address] | + + + | Home Phone [...] Providers + +------+ + | Care Brine Plant Operator Name | Role | Phone | + +------+ + | Kirk French MD | PCP | | + +------+ + Encounter Details +--------+ + + + + | Date | Type | Department | Care Team | Description | +--------+ + + + + | 01/07/ | Hospital | [facility] | Conversion | | | 2017 | Encounter | [facility] | Transaction, | | | | | ULTRASOUND [address] | Provider Unknown | | | | | [address] [facility] [address] | [phone] | | | | | [place] | | | | | | [address] | Kirk French | | | | | [phone] | MD Eva Guidry | | | | | | [address] [place], | | | | | | [place] [address] | | | | | | [phone] | | | | | | | [...] + + + +---------+ + + | [place]-3 Fatty | CAPS, one capsule by | [...] | | | | | | [place] [address] | | | | | | [phone] | | | | | | | | +--------+ + + + + | 11/20/ | Implant | Cardiology | Daljit Singletary, | Remote Device | | 2018 | Monitor | | 401 [facility] | Interrogation | | | | | [place], | (Primary Dx); | | | | | [place] [address] | Presence of | | | | | [phone] | permanent cardiac | | | | [...]
--- OUTSIDE RECORDS SUMMARY | ~2019-10-04 | XMS | Encounter Summary ---
Demographics + + + | Address | [address] | | | [place] [address] | + + + | Home Phone [...] Team Providers + +------+ + | Care Seed Cutter Name | Role | Phone [...] | disease involving | | | | [place], | [place], | holy [place] coronary | | | | [place] [address] | [place] [address] | artery of holy cross | | | | [phone] | [phone] | heart without angina | | | [...] W | | | | | | [place], | | | | | | [place] [address] | | | | | | [phone] | | | | | | | | +--------+ + + + + | 11/20/ | Implant | Cardiology | Daljit Singletary, | Remote Device | | 2018 | Monitor | | [facility] | Interrogation | | | | | 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
--- OUTSIDE RECORDS SUMMARY | ~2019-10-04 | XMS | Encounter Summary ---
Demographics + + + | Address | [address] | | | [place] [address] | + + + | Home Phone [...] Providers + +------+ + | Care Field Examiner Name | Role | Phone | [...] | | | | [place] | [address] | | | | | [address] | | | | | | [phone] | | | +--------+ + + + [...] W | | | | | | [place], | | | | | | [place] [address] | | | | | | [phone] | | | | | | | | +--------+ + + + + | 11/20/ | Implant | Cardiology | Daljit Singletary, | Remote Device | | 2018 | Monitor | | MD Chiquis Oro | Interrogation | | | | | [place], | (Primary Dx); | | | | | [place] [address] | Presence of | | | | | [phone] | permanent cardiac | | | | [...]
--- OUTSIDE RECORDS SUMMARY | ~2019-10-04 | XMS | Encounter Summary ---
Demographics + + + | Address | [address] | | | [place] [address] | + + + | Home Phone [...] Team Providers + +------+ + | Care Livestock Yard Attendant Name | Role | Phone | [...] + + | 10/25/ | Telephone | [facility] | Silvia, | Other (patient has | | 2013 | | CARDIOLOGY [address] | Janeen CASH APPLICATIONS COORDINATOR [address] | changed his mind) | | | | [place], | [place], | | | | | [place] [address] | [place] [address] | | | | | [phone] | [phone] | | | | | | | [...] W | | | | | | [place], | | | | | | [place] [address] | | | | | | [phone] | | | | | | | | +--------+ + + + + | 11/20/ | Implant | Cardiology | Daljit Singletary, | Remote Device | | 2018 | Monitor | | [address] [facility] | Interrogation | | | | | [place], | (Primary Dx); | | | | | [place] [address] | Presence of | | | | | [phone] | permanent cardiac | | | | [...]
--- OUTSIDE RECORDS SUMMARY | ~2019-10-04 | XMS | Encounter Summary ---
Demographics + + + | Address | [address] | | | [place] [address] | + + + | Home Phone [...] Team Providers + +------+ + | Care Admissions Gate Attendant Name | Role | Phone | + +------+ + PCP | Unavailable | + +------+ + Encounter Details +--------+ + + + + | Date | Type | Department | Care Team | Description | +--------+ + + + + | 10/09/ | [facility] | [facility] | Jonathan, | | | 2008 | Encounter | MED CTR EMERGENCY | Martell Cr MD [address] | | | | | CENTER [address] | [place] | | | | | [place] | [place] [address] | | | | | [address] | [phone] | | | | | [phone] | | | +--------+ + + + [...] W | | | | | | [place], | | | | | | [place] [address] | | | | | | [phone] | | | | | | | | +--------+ + + + + | 11/20/ | Implant | Cardiology | Daljit Singletary, | Remote Device | | 2019 | Monitor | | MD [address]iqu[address]ro | Interrogation | | | | | [place], | (Primary Dx); | | | | | [place] [address] | Presence of | | | | | [phone] | permanent cardiac | | | | [...]
--- OUTSIDE RECORDS SUMMARY | ~2019-10-04 | XMS | Encounter Summary ---
Demographics + + + | Address | [address] | | | [place] [address] | + + + | Home Phone [...] Providers + +------+ + | Care Paint Supervisor Name | Role | Phone | + +------+ + PCP | Unavailable | + +------+ + Encounter Details +--------+ + + + + | Date | Type | Department | Care Team | Description | +--------+ + + + + | 01/27/ | [facility] | [facility] | Jonathan, | | | 2008 | Encounter | MED CTR EMERGENCY | Martell Cr MD [address] | | | | | CENTER [address] | [place] | | | | | [place] | [place] [address] | | | | | [address] | [phone] | | | | | [phone] | | | +--------+ + + + [...] W | | | | | | [place], | | | | | | [place] [address] | | | | | | [phone] | | | | | | | | +--------+ + + + + | 11/20/ | Implant | Cardiology | Daljit Singletary, | Remote Device | | 2019 | Monitor | | MD [address]iqu[address] | Interrogation | | | | | [place], | (Primary Dx); | | | | | [place] [address] | Presence of | | | | | [phone] | permanent cardiac | | | | [...]
--- OUTSIDE RECORDS SUMMARY | ~2019-10-04 | XMS | Encounter Summary ---
Demographics + + + | Address | [address] | | | [place] [address] | + + + | Home Phone [...] Team Providers + +------+ + | Care Multi Slide Machine Tender Name | Role | Phone [...] | CARDIOLOGY [address] | [address] | card ) | | | | [place], | [place], | | | | | [place] [address] | [place] [address] | | | | | [phone] | [phone] | | | | | | | [...] W | | | | | | [place], | | | | | | [place] [address] | | | | | | [phone] | | | | | | | | +--------+ + + + + | 11/20/ | Implant | Cardiology | Daljit Singletary, | Remote Device | | 2018 | Monitor | | [address] [facility] | Interrogation | | | | | [place], | (Primary Dx); | | | | | [place] [address] | Presence of | | | | | [phone] | permanent cardiac | | | | [...]
--- OUTSIDE RECORDS SUMMARY | ~2019-10-04 | XMS | Encounter Summary ---
Demographics + + + | Address | [address] | | | [place] [address] | + + + | Home Phone [...] Providers + +------+ + | Care Lining Baster Name | Role | Phone | + [...] 2012 | | CARDIOLOGY [address] | INFORMATICA ARCHITECT [address] [place] | | | | | [place], | [place], [place] | | | | | [place] [address] | [address] | | | | | [phone] | | | +--------+ + + + [...] | | | | | | [place] [address] | | | | | | [phone] | | | | | | | | +--------+ + + + + | 11/20/ | Implant | Cardiology | Daljit Singletary, | Remote Device | | 2019 | Monitor | | MD 401 [facility] | Interrogation | | | | | [place], | (Primary Dx); | | | | | [place] [address] | Presence of | | | | | [phone] | permanent cardiac | | | | [...] + | [address] | [address] | [place], [place] | | | [facility] | | [address] | | | - LABORATORY | | [...] | | | LAB | | | [place], | | | | | | External [...]
--- OUTSIDE RECORDS SUMMARY | ~2019-10-04 | XMS | Encounter Summary ---
Demographics + + + | Address | [address] | | | [place] [address] | + + + | Home Phone [...] Team Providers + +------+ + | Care V Belt Skiver Name | Role | Phone | + +------+ + PCP | Unavailable | + +------+ + Encounter Details +--------+ + + + + | Date | Type | Department | Care Team | Description | +--------+ + + + + | 06/03/ | Hospital | [facility] | | | | 2008 | Encounter | MED CTR EMERGENCY | | | | | | [place] [address] | | | | | | [place] | | | | | | [address] | | | | | | [phone] | | | +--------+ + + + [...] | | | | | | [place] [address] | | | | | | [phone] | | | | | | | | +--------+ + + + + | 11/20/ | Implant | Cardiology | Daljit Singletary, | Remote Device | | 2018 | Monitor | | [facility] | Interrogation | | | | | [place], | (Primary Dx); | | | | | [place] [id number] | Presence of | | | | | [phone] | permanent cardiac | | | | [...]
--- OUTSIDE RECORDS SUMMARY | ~2019-10-04 | XMS | Encounter Summary ---
Demographics + + + | Address | [address] | | | [place] [address] | + + + | Home Phone [...] Providers + +------+ + | Care Service Now Developer Name | Role | Phone | + +------+ + | Kirk French MD | PCP | | + +------+ + Encounter Details +--------+ + + + + | Date | Type | Department | Care Team | Description | +--------+ + + + + | 01/07/ | Hospital | [facility] | Conversion | | | 2017 | Encounter | [facility] | Transaction, | | | | | ULTRASOUND 945 | Provider Unknown | | | | | [address] [facility] [address] | [phone] | | | | | [place] | | | | | | [address] | Kirk French | | | | | [phone] | MD Eva Guidry | | | | | | [address] [place], | | | | | | [place] [address] | | | | | | [phone] | | | | | | | [...] + + + +---------+ + + | [place]-3 Fatty | CAPS, one capsule by | [...] | | | | | | [place] [address] | | | | | | [phone] | | | | | | | | +--------+ + + + + | 11/20/ | Implant | Cardiology | Daljit Singletary, | Remote Device | | 2018 | Monitor | | [address] [facility] | Interrogation | | | | | [address] [place], | (Primary Dx); | | | | | [place] [address] | Presence of | | | | | [phone] | permanent cardiac | | | | [...]
--- OUTSIDE RECORDS SUMMARY | ~2019-10-04 | XMS | Encounter Summary ---
Demographics + + + | Address | [address] | | | [place] [address] | + + + | Home Phone [...] Team Providers + +------+ + | Care Purchasing/Receiving Name | Role | Phone | + [...] | | CARDIOLOGY [address] | | | | | [place], | [place], | | | | | [place] [address] | [place] [address] | | | | | [phone] | [phone] | | | | | | | [...] | | | | | | [place] [address] | | | | | | [phone] | | | | | | | | +--------+ + + + + | 11/20/ | Implant | Cardiology | Daljit Singletary, | Remote Device | | 2018 | Monitor | | [address] [facility] | Interrogation | | | | | [place], | (Primary Dx); | | | | | [place] [address] | Presence of | | | | | [phone] | permanent cardiac | | | | [...]
--- OUTSIDE RECORDS SUMMARY | ~2019-10-04 | XMS | Encounter Summary ---
Demographics + + + | Address | [address] [place] [address] | | | [place] [address] | + + + | Home Phone [...] [place] | | | | | [address] | | + + + + + Care Team Providers + +------+ + | Care Transfer Knitter Name | Role | Phone | [...] | Center at [facility] [address] | [address] | | | | | [address] | [place], [place] | | | | | Mailcode: [place] | [address] | | | | | [facility] and | [phone] | | | | | [place] [address] | | | | | | [place], [place] | | | | | | [address] | | | | | | [phone] | | | +--------+ + + + [...]
--- OUTSIDE RECORDS SUMMARY | ~2019-10-04 | XMS | Encounter Summary ---
Demographics + + + | Address | [address] | | | [place] [address] | + + + | Home Phone [...] Providers + +------+ + | Care Systems Integration Analyst Name | Role | Phone | + +------+ + PCP | Unavailable | + +------+ + Encounter Details +--------+ + + + + | Date | Type | Department | Care Team | Description | +--------+ + + + + | 03/08/ | [facility] | [facility] | Emmanuel Daniel MD | | | 2006 | Encounter | MED CTR GENERIC OP | [address] | | | | | CONV DEPT [address] | [address] | | | | | [place], | [address] | | | | | [place] [address] | | | | | | [phone] | | | +--------+ + + + [...] W | | | | | | [place], | | | | | | [place] [address] | | | | | | [phone] | | | | | | | | +--------+ + + + + | 11/20/ | Implant | Cardiology | Daljit Singletary, | Remote Device | | 2019 | Monitor | | MD [address] | Interrogation | | | | | [place], | (Primary Dx); | | | | | [place] [address] | Presence of | | | | | [phone] | permanent cardiac | | | | [...]
--- OUTSIDE RECORDS SUMMARY | ~2019-10-04 | XMS | Encounter Summary ---
Demographics + + + | Address | [address] | | | [place] [address] | + + + | Home Phone [...] Team Providers + +------+ + | Care Enrolled Nurse Name | Role | Phone | [...] [address] | | | | | [place], | [place], | | | | | [place] [address] | [place] [address] | | | | | [phone] | [phone] | | | | | | | [...] | | | | | | [place] [address] | | | | | | [phone] | | | | | | | | +--------+ + + + + | 11/20/ | Implant | Cardiology | Daljit Singletary, | Remote Device | | 2018 | Monitor | | [address] [place] [address] | Interrogation | | | | | [address] [place], | (Primary Dx); | | | | | [place] [address] | Presence of | | | | | [phone] | permanent cardiac | | | | [...]
--- OUTSIDE RECORDS SUMMARY | ~2019-10-04 | XMS | Encounter Summary ---
Demographics + + + | Address | [address] | | | [place] [address] | + + + | Home Phone [...] Providers + +------+ + | Care Vocational Trainer Name | Role | Phone | + +------+ + | Kirk French MD | PCP | | + +------+ + Encounter Details +--------+ + + + + | Date | Type | Department | Care Team | Description | +--------+ + + + + | 10/25/ | Hospital | [facility] | Kirk French | Aneurysm (HCC) | | 2017 | Encounter | MED CTR ULTRASOUND | D, MD [address] | | | | | [address] | [address] | | | | | [place], [place] | [place] [address] | | | | | [address] | [phone] | | | | | [phone] | | | | | | | [...] + + + +---------+ + + | [place]-3 Fatty | CAPS, one capsule by | [...] | | | | | | [place] [address] | | | | | | [phone] | | | | | | | | +--------+ + + + + | 11/20/ | Implant | Cardiology | Daljit Singletary, | Remote Device | | 2019 | Monitor | | [address] [facility] | Interrogation | | | | | [place], | (Primary Dx); | | | | | [place] [address] | Presence of | | | | | [phone] | permanent cardiac | | | | [...]
--- OUTSIDE RECORDS SUMMARY | ~2019-10-04 | XMS | Encounter Summary ---
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 Date Last Reviewed: 09/22/201619999495-0914 [employer] [address] [place] [address], [place] [address]. All righ ts reserved. This information is [...] vomiting, or vomiting blood Date Last Reviewed: 05/22/201619993722-4934 [employer] [address] [place] [address]. All [facility] ts reserved. This information is not [...] You can't be awakened Date Last Reviewed: 09/08/201619993939-6288 [employer] [address] [place] [address], [place] [address]. All righ ts reserved. This information is [...] + + + +---------+ + + | [place]-3 Fatty | CAPS, one capsule by | [...] W | | | | | | [place], | | | | | | [place] [address] | | | | | | [phone] | | | | | | | | +--------+ + + + + | 11/20/ | Implant | Cardiology | Daljit Singletary, | Remote Device | | 2018 | Monitor | | MD [address] [place] [address] | Interrogation | | | | | [place], | (Primary Dx); | | | | | [place] [address] | Presence of | | | | | [phone] | permanent cardiac | | | | [...] [address], | REFERENCE LAB | | [place], [place] [address] Counter Supervisor: Miguel Galarza MD, Phone: | [facility] | | [phone] | | + + + + + + + + | Performing | Address | City/State/Zipcode | Phone Number | | Organization | | | | + + + + + | REFERENCE LAB | [address] | [place] [address] | [phone] | | [facility] | Drive [...] [address], | REFERENCE LAB | | [place] [address] Counter Supervisor: Miguel Galarza MD, Phone: | [facility] | | [phone] | | + + + + + + + + | Performing | Address | City/State/Zipcode | Phone Number | | Organization | | | | + + + + + | REFERENCE LAB | [address] [facility] | [place] [address] | [phone] | | [facility] | [facility] | | | + + [...] [address] | [place] | [phone] | | [facility] | | [address] | | | - LABORATORY | | [...] Negative for toxigenic | | [facility] [facility] | | | GDH Antigen | Clostridium [...] [address] | [place] | [phone] | | [facility] | | [address] | | | - LABORATORY | | [...] | | dium | | | [facility] | | | Antigen | [...] [address] | [place] | [phone] | | [facility] | | [address] | | | - LABORATORY | | [...] [address] | [place] | [phone] | | [facility] | | [address] | | | - LABORATORY | | [...] [address] | [place] | [phone] | | [facility] | | [address] | | | - LABORATORY | | [...] ST. | [address] | [place], [place] | [phone] | | [facility] | | [address] | | | - LABORATORY | | | | + + + + + BERNARDD (01/05/2019 8:36 AM PST) + + | Specimen | + + | | + + + + -+ | Narrative | Performed At | + + -+ | | [facility] | | GastroenterologyPatient Name: Moe Venegas Date: | PROVATION | | 01/05/2019 8:36 AMMRN: [id number] #: [id number] of : | | | 9Admit Type: AmbulatoryAge: 58Room: [facility] 01Gender: MaleNote | | | Status: FinalizedAttending MD: Emmanuel Daniel , [facility]cedure: | | | Upper GI endoscopyIndications: Diarrhea, Weight | | | lossProviders: Emmanuel Daniel MD, Heidi An, | | | RN, Kim Hicks, Production Worker, | | | Jarett Barakat MD (Anesthesia [...] physician, the nurse, the anesthesiologist and the soil field technician | | | in the endoscopy [...] | | Imaging was performed using the [employer] | | | Endoscopy (FICE) [...] Scope In: 8:43:57 AMScope Out: 8:49:50 AM [facility]. | | | [facility], [address] [place] [address] | | | [phone] | | |Recommendation: | | | - [...] |Scope Out: 8:49:50 AM | | | [facility], [address] [facility], [place], [place] | | | [address] | | + + -+ + +---------+ [...] | PROVATION | | 01/05/2019 8:36 AMMRN: [id number] #: [id number] of : | | | 9Admit Type: AmbulatoryAge: 58Room: [facility] 01Gender: MaleNote | | | Status: FinalizedAttending MD: Emmanuel Daniel , [facility]cedure: | | | ColonoscopyIndications: Clinically significant diarrhea of | | | unexplained origin, Weight lossProviders: | | | Emmanuel Daniel MD, Heiid An RN, [place] | | | Fiorella Hicks, Production Worker, Jarett Sapna | | | MD Roshni [...] | | | the anesthesiologist and the soil field technician in the endoscopy suite. 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 BES:[facility]:C3NR GROSS DESCRIPTION: A. The | | | specimen, labeled "[place], duodenal biopsy" is received in formalin | | | and consists of seven 0.1-0.5 cm lin fragments. Entirely submitted in | | | (A1). B. The specimen, labeled "[place], right colon" is received | | | in formalin and consists of six 0.2-0.3 cm lin fragments. Entirely | | | submitted in (B1). C. The specimen, labeled "[place], left colon" | | | is received in formalin and consists of six 0.2-0.3 cm lin-pink | | | fragments. Entirely submitted in (C1). am:AMB:portillo PERFORMING | | | LABORATORY: The technical component was performed by [employer] | | | [facility], [address] [place] [address] (Commercial Lines Underwriter: | | | Kailey Stafford MD; CLIA# [id number]). Professional interpretation was | | | performed by [employer], [facility], [address] | | [address] [place] [address] (Commercial Lines Underwriter: [place] | Shanique Dao M.D.; LAYNE#: [id number]). Diagnostician: [place] | | Sylwia WINKLER [...] ONCE PRN, Wheezing, | | | Starting [facility] 01/05/19 at 0924, | | | For [...] | mL/hr | | | CONTINUOUS, Starting [facility] 01/05/19 | | AM PST | | | | | at 0800, Pre-op | | | | | | + +---------+ +---+-------+---+ + +---+ | | | + +---+ | ondansetron (ZOFRAN) injection | | | 4 mg 4 mg, Oral, EVERY 4 HOURS | | | PRN, Nausea, Vomiting, Starting | | | [facility] 01/05/19 at 0924, | | | Recovery/Phase I | | + +---+ | | | + +---+ | ondansetron (ZOFRAN) injection | | | 4 mg 4 mg, Intravenous, ONCE | | | PRN, Nausea, Starting [facility] 01/05/19 | | | at 0924, For 1 dose, | | | Recovery/Phase I | | + +---+ | | | + +---+ documented in this encounter
--- OUTSIDE RECORDS SUMMARY | ~2019-10-04 | XMS | Encounter Summary ---
Demographics + + + | Address | [address] | | | [place] [address] | + + + | Home Phone [...] Team Providers + +------+ + | Care Eyelet Row Marker Name | Role | Phone | + [...] | 2018 | Changes | GASTROENTEROLOGY | Teacher Of The Emotionally Disturbed | | | | | [address] [facility] | | | | | | [address] [place] | | | | | | [address] | | | | | | [phone] | | | +--------+ + + + [...] | | | | | | [place] [address] | | | | | | [phone] | | | | | | | | +--------+ + + + + | 11/20/ | Implant | Cardiology | Daljit Singletary, | Remote Device | | 2018 | Monitor | | [address] [place] | Interrogation | | | | | [place], | (Primary Dx); | | | | | [place] [address] | Presence of | | | | | [phone] | permanent cardiac | | | | [...]
--- OUTSIDE RECORDS SUMMARY | ~2019-10-04 | XMS | Encounter Summary ---
Demographics + + + | Address | [address] | | | [place] [address] | + + + | Home Phone [...] Team Providers + +------+ + | Care Gravity Prospecting Operator Name | Role | Phone | + +------+ + PCP | Unavailable | + +------+ + Encounter Details +--------+ + + + + | Date | Type | Department | Care Team | Description | +--------+ + + + + | 05/13/ | [facility] | [facility] | Dom Graham, | | | 2010 | Encounter | MED CTR EMERGENCY | [address] | | | | | CENTER [address] | [place] | | | | | [place] | [address] | | | | | [address] | | | | | | [phone] | | | +--------+ + + + [...] | | | | | [place], | | | | | | [place] [address] | | | | | | [phone] | | | | | | | | +--------+ + + + + | 11/20/ | Implant | Cardiology | Daljit Singletary, | Remote Device | | 2019 | Monitor | | [address] [facility] | Interrogation | | | | | [place] [place], | (Primary Dx); | | | | | [place] [address] | Presence of | | | | | [phone] | permanent cardiac | | | | [...] | | | | | the [place] | | | | | | Access [...] ST. | [address] | [place], [place] | [phone] | | [facility] | | [address] | | | - LABORATORY | | | | + + + + + | [address] | [address] | [place], [place] | | | [facility] | | [address] | | | - LABORATORY | | [...] + | [facility] | [address] | [place] | [phone] | | [facility] | | [address] | | | - LABORATORY | | | | + + + + + | [facility] | [address] | [place], [place] | | | [facility] | | [address] | | | - LABORATORY | | [...] + | [facility] | [address] | [place], [place] | [phone] | | [facility] | | [address] | | | - LABORATORY | | | | + + + + + | [facility] | [address] | [place], [place] | | | [facility] | | [address] | | | - LABORATORY | | [...] + | [address] [facility] | [address] | [place], [place] | [phone] | | [facility] | | [address] | | | - LABORATORY | | | | + + + + + | [facility] | [address] | [place], [place] | | | [facility] | | [address] | | | - LABORATORY | | | | + + + + + XR Chest AP Portable (05/13/2011 3:01 PM PDT) + + | Specimen | + + | | + + + + + | Narrative | Performed At | + + + | [facility] Diagnostic Imaging Department | [facility] | | [address] [facility] | [facility] | | PORTABLE CHEST CLINICAL | DIAG [...] Transcribed Date/Time: | | | 05/13/2011 17:06 Central Office Equipment Installer: <Electronically Signed | | | by Jama Solis MD> 05/13/112038 | | + + + + + | Procedure Note | + + | Kevin, Rad Conversion - 12/29/2013 3:12 PM [facility] | | Diagnostic Imaging Department [address] [place] [address] | | PORTABLE CHEST CLINICAL HISTORY: TACHYCARDIA. [...] 16:57 | |Transcribed Date/Time: 05/13/2011 17:06 | |Central Office Equipment Installer: | |<Electronically Signed by Jama Solis MD> [...]
--- OUTSIDE RECORDS SUMMARY | ~2019-10-04 | XMS | Encounter Summary ---
Demographics + + + | Address | [address] | | | [place] [address] | + + + | Home Phone [...] Team Providers + +------+ + | Care Fishing Tool Supervisor Name | Role | Phone | [...] + + | 12/14/ | Telephone | [facility] | Emmanuel Daniel MD | Follow-up, Office | | 2019 | | GASTROENTEROLOGY | [address] [place] | Visit (wants to | | | | [address] | [address] [place] | cancel his office | | | | [address] [place] | [address] | appointment today) | | | | [address] | | | | | | [phone] | | | +--------+ + + + [...] | | | | | | [place] [address] | | | | | | [phone] | | | | | | | | +--------+ + + + + | 11/20/ | Implant | Cardiology | Daljit Singletary, | Remote Device | | 2019 | Monitor | | [facility] | Interrogation | | | | | [address] [place], | (Primary Dx); | | | | | [place] [address] | Presence of | | | | | [phone] | permanent cardiac | | | | [...]
--- OUTSIDE RECORDS SUMMARY | ~2019-10-04 | XMS | Encounter Summary ---
Demographics + + + | Address | [address] | | | [place] [address] | + + + | Home Phone [...] Team Providers + +------+ + | Care Cigar Tobacco Rehandler Name | Role | Phone | + [...] Provider Unknown | | | | | [place], [place] | [phone] | | | | | [address] | | | | | | [phone] | | | +--------+ + + + [...] + + +---------+ + + | [place]-3 Fatty | CAPS, one capsule by | [...] | | | | | | [place] [address] | | | | | | [phone] | | | | | | | | +--------+ + + + + | 11/20/ | Implant | Cardiology | Daljit Singletary, | Remote Device | | 2019 | Monitor | | [address] [facility] | Interrogation | | | | | [place], | (Primary Dx); | | | | | [place] [address] | Presence of | | | | | [phone] | permanent cardiac | | | | [...]
--- OUTSIDE RECORDS SUMMARY | ~2019-10-04 | XMS | Encounter Summary ---
Demographics + + + | Address | [address] | | | [place] [address] | + + + | Home Phone [...] [place] | | | | | | [address] | | | | | | [phone] | | | +--------+ + + + [...] + + + +---------+ + + | [place]-3 Fatty | CAPS, one capsule by [...] | | | | | | [place] [address] | | | | | | [phone] | | | | | | | | +--------+ + + + + | 11/20/ | Implant | Cardiology | Daljit Singletary, | Remote Device | | 2018 | Monitor | | [address] [facility] | Interrogation | | | | | [place], | (Primary Dx); | | | | | [place] [address] | Presence of | | | | | [phone] | permanent cardiac | | | | [...]
--- OUTSIDE RECORDS SUMMARY | ~2019-10-04 | XMS | Encounter Summary ---
Demographics + + + | Address | [address] | | | [place] [address] | + + + | Home Phone [...] Providers + +------+ + | Care Street Light Repairer Helper Name | Role | Phone | [...] | aortic aneurysm | | | | [place], | [place], | [facility] (Primary Dx); | | | | [place] [address] | [place] [address] | Coronary artery | | | | [phone] | [phone] | disease involving | | | | | | [place] coronary | | | | | | artery of [place] | | | | | | heart [...] of non-critical coronary artery d isease involving [place] coronary artery of [place] heart without angina pectoris, essential h ypertension, [...] episode of chest pain while nelly ng [facility], so he took some sublingual nitroglycerin [...] Preventative health care Coronary artery disease involving [place] coronary artery of [place] heart without angina pectoris Cannabis abuse, daily [...] 3rd dose, call 911 100 tablet 3 [place]-3 Fatty Acids (SALMON OIL-1000 PO) CAPS, one capsule by mouth daily twice daily ONE TOUCH DELICA LANCETS [facility] [...] reviewed during visit today primarily from [facility]: LIPID Lab Results Component Value Date [...] 129* 05/12/2016 I reviewed records from [facility] for office visit on 06/2016 [facility] ch is summarized in the HPI. [...] pressure. 2. Non-critical Coronary artery disease involving [place] coronary artery of [place] heart [facility] angina pectoris: A. Normal exercise sestamibi [...] arrhythmia performed by Dr. Gambino at [facility] on 01/30/2013. Patient had spontaneous PVCs [...] to go back in 3 days to [place] for an attempt of ablation under general [...] this chart may have been created with [employer] voice recognition software. Occasi onal wrong-word or [...] | | | | | | [place] [address] | | | | | | [phone] | | | | | | | | +--------+ + + + + | 11/20/ | Implant | Cardiology | Daljit Singletary, | Remote Device | | 2019 | Monitor | | MD [address] [place] | Interrogation | | | | | [place] [place], | (Primary Dx); | | | | | [place] [address] | Presence of | | | | | [phone] | permanent cardiac | | | | [...] + + | Coronary artery disease involving [place] coronary artery of [place] heart without | | angina pectoris | + + | Essential hypertension with goal blood pressure less than 130/80 | + + | Hyperlipidemia, mixed Mixed hyperlipidemia | + + documented in this encounter
--- OUTSIDE RECORDS SUMMARY | ~2019-10-04 | XMS | Encounter Summary ---
Demographics + + + | Address | [address] | | | [place] [address] | + + + | Home Phone [...] Providers + +------+ + | Care Contact Center Associate Name | Role | Phone [...] [address] | | | | | [address] | [place] | | | | | [phone] | [address] | | | | | | | [...] | | | | | | [place] [address] | | | | | | [phone] | | | | | | | | +--------+ + + + + | 11/20/ | Implant | Cardiology | Daljit Singletary, | Remote Device | | 2018 | Monitor | | MD [facility] | Interrogation | | | | | [place], | (Primary Dx); | | | | | [place] [address] | Presence of | | | | | [phone] | permanent cardiac | | | | [...]
--- OUTSIDE RECORDS SUMMARY | ~2019-10-04 | XMS | Encounter Summary ---
Demographics + + + | Address | [address] | | | [place] [address] | + + + | Home Phone [...] Provider Unknown | | | | | [place], [place] | [phone] | | | | | [address] | | | | | | [phone] | | | +--------+ + + + [...] + + + +---------+ + + | Towaoc-3 Fatty | CAPS, one capsule by | [...] | | | | | | [place] [address] | | | | | | [phone] | | | | | | | | +--------+ + + + + | 11/20/ | Implant | Cardiology | Daljit Singletary, | Remote Device | | 2019 | Monitor | | [facility] | Interrogation | | | | | [place], | (Primary Dx); | | | | | [place] [address] | Presence of | | | | | [phone] | permanent cardiac | | | | [...]
--- OUTSIDE RECORDS SUMMARY | ~2019-10-04 | XMS | Encounter Summary ---
Demographics + + + | Address | [address] | | | [place] [address] | + + + | Home Phone [...] Providers + +------+ + | Care Cnc Machinist Name | Role | Phone | [...] CARDIOLOGY [address] | MD [address] | Interrogation | | | | [place], | [place], | (Primary Dx); | | | | [place] [address] | [place] [address] | Pacemaker; | | | | [phone] | [phone] | Sinoatrial node | | | | [...] | | | | | | [place] [address] | | | | | | [phone] | | | | | | | | +--------+ + + + + | 11/20/ | Implant | Cardiology | Daljit Singletary, | Remote Device | | 2019 | Monitor | | MD [address] [facility] | Interrogation | | | | | [place], | (Primary Dx); | | | | | [place] [address] | Presence of | | | | | [phone] | permanent cardiac | | | | [...] | Daljit SALVADOR | | MD Gemini 05/01/2019 11:11Date of Remote Interrogation: | | | 04/11/2019 Refer to Paceart documentation and remote PDF scanned into | | | [facility] for remote interrogation results. Data [...]
--- OUTSIDE RECORDS SUMMARY | ~2019-10-04 | XMS | Encounter Summary ---
Demographics + + + | Address | [address] | | | [place] [address] | + + + | Home Phone [...] Providers + +------+ + | Care Traffic Sign Supervisor Name | Role | Phone | + +------+ + | Kirk French MD | PCP | | + +------+ + Encounter Details +--------+---------+ + + + | Date | Type | Department | Care Team | Description | +--------+---------+ + + + | 01/25/ | Surgery | [facility] | Daljit Singletary, | CV LHC | | 2019 | | MED CTR CV INTRA OP | MD [address] | | | | | [address] | [address] [place], | | | | | [place] | [place] [address] | | | | | [address] | [phone] | | | | | [phone] | | | +--------+---------+ + + + [...] by your healthcare provider Date Last Reviewed: 09/22/[id number] [employer]. [address] [place] [address]. All righ ts reserved. This information is [...] [address] | | | | | | [place], | | | | | | [place] [address] | | | | | | [phone] | | | | | | | | +--------+ + + + + | 11/20/ | Implant | Cardiology | Daljit Singletary, | Remote Device | | 2018 | Monitor | | [address] [facility] | Interrogation | | | | | [place], | (Primary Dx); | | | | | [place] [address] | Presence of | | | | | [phone] | permanent cardiac | | | | [...] for this | | | e | 8:17 AM | | procedure are in the | | | | PST | | results section. | + +--------+ + + + | CV LHC | Routin | 01/25/2019 | | Results for this | | | e | 8:17 AM | | procedure are in the | | | | PST | | results section. | + +--------+ + + + documented in this encounter Results CV CARDIAC PROCEDURE (01/25/2019 8:17 AM PST) + +-------+ + + + [...] (1960) MEDICAL RECORD NUMBER: | | | [id number] OF PROCEDURE: 01/25/2019 LICENSING WORKER: Daljit | | | MD Gemini PROCEDURES [...] Sanchez, (1960) | | OF PROCEDURE: 01/25/2019PRIMARY PLUG OVERWRAP MACHINE TENDER: Daljit Singletary MD PROCEDURES | | PERFORMED:Coronary [...] | Aggressive medical management. | | at 9:[facility] PROVIDER:Kirk French MDFor additional detail as [...] or lesion | | type, unspecified whether [place] or transplanted heart | + + documented [...]
--- OUTSIDE RECORDS SUMMARY | ~2019-10-04 | XMS | Encounter Summary ---
Demographics + + + | Address | [address] | | | [place] [address] | + + + | Home Phone [...] Team Providers + +------+ + | Care Chargeback Analyst Name | Role | Phone | + +------+ + | Kirk French MD | PCP | | + +------+ + Encounter Details +--------+ + + + + | Date | Type | Department | Care Team | Description | +--------+ + + + + | 03/15/ | Hospital | [facility] | Conversion | | | 2017 | Encounter | [facility]ENTER [facility] | Transaction, | | | | | [address] | Provider Unknown | | | | | [address] [place] | [phone] | | | | | [address] | | | | | | [phone] | Kirk French | | | | | | MD Brea [address] | | | | | | [address] [place], | | | | | | [place] [address] | | | | | | [phone] | | | | | | | [...] + + + +---------+ + + | Eliot-3 Fatty | CAPS, one capsule by | [...] | | | | | | [place] [address] | | | | | | [phone] | | | | | | | | +--------+ + + + + | 11/20/ | Implant | Cardiology | Daljit Singletary, | Remote Device | | 2019 | Monitor | | [address] [facility] | Interrogation | | | | | [place], | (Primary Dx); | | | | | [place] [address] | Presence of | | | | | [phone] | permanent cardiac | | | | [...]
--- OUTSIDE RECORDS SUMMARY | ~2019-10-04 | XMS | Encounter Summary ---
Demographics + + + | Address | [address] | | | [place] [address] | + + + | Home Phone [...] Providers + +------+ + | Care Head Knitting Machine Fixer Name | Role | Phone | + [...] + | 08/24/ | Office | [facility] | Silvia, | Ascending thoracic | | 2018 | Visit | CARDIOLOGY [address] | [address] | aortic aneurysm | | | | [place], | [place], | ([facility]) (Primary Dx); | | | | [place] [address] | [place] [address] | Syncope, unspecified | | | | [phone] | [phone] | syncope type; | | | | | | Hypertension, | | | | | | unspecified type; | | | | | | Coronary artery | | | | | | disease involving | | | | | | [place] coronary | | | | | | artery of [place] | | | | | | heart [...] of non-critical coronary artery d isease involving [place] coronary artery of [place] heart without angina pectoris, essential h [...] Preventative health care Coronary artery disease involving [place] coronary artery of [place] heart without angina pectoris Cannabis abuse, [...] by mouth Daily. 90 tabl et 1 [facility] Natural Products (OSTEO BI-FLEX/5-LOXIN ADVANCED [...] 3RD DOSE, CALL 911 100 tablet 3 Redby-3 Fatty Acids (SALMON OIL-1000 PO) CAPS, one capsule by mouth daily twice daily ONE TOUCH DELICA LANCETS [facility] Check glucose as needed [...] now present Confirmed by HIREN WINKLER, ANGELA ([id number]) on 07/28/2018 6:03:35 AM LAB RESULTS reviewed during visit today primarily from [facility]: LIPID Lab Results Component Value Date TRIG [...] PLTEX 157 04/11/2018 I reviewed records from [facility] for emergency department visit o n 07/27/2018 [...] arrhythmia performed by Dr. Gambino at [facility] on 01/30/2013. Patient had spontaneous PVCs [...] to go back in 3 days to [place] for an attempt of ablation under general [...] He is in class II of the [place] Heart [employer] f unctional class. There are [...] subsided. 2. Non-critical Coronary artery disease involving [place] coronary artery of [place] heart [facility] angina pectoris: A. Normal exercise sestamibi stress [...] cannot completely be ruled out . [facility] 12/25/13, shows non critical coronary [...] this chart may have been created with [employer] voice recognition software. Occasi onal wrong-word [...] | | | | | [place], | | | | | | [place] [address] | | | | | | [phone] | | | | | | | | +--------+ + + + + | 11/20/ | Implant | Cardiology | Daljit Singletary, | Remote Device | | 2018 | Monitor | | [address] [place] | Interrogation | | | | | [place], | (Primary Dx); | | | | | [place] [address] | Presence of | | | | | [phone] | permanent cardiac | | | | [...] + + | Coronary artery disease involving [place] coronary artery of [place] heart without | | angina pectoris | [...]
--- OUTSIDE RECORDS SUMMARY | ~2019-10-04 | XMS | Encounter Summary ---
Demographics + + + | Address | [address] | | | [place] [address] | + + + | Home Phone [...] Providers + +------+ + | Care Yard Conductor Name | Role | Phone | [...] | | | | CENTER [address] | [address] [place], [place] | Anxiety | | | | [place], [place] | [address] | | | | | [address] | | | | | | [phone] | | | +--------+ + + + [...] + + + +---------+ + + | [place]-3 Fatty | CAPS, one capsule by | [...] W | | | | | | [place], | | | | | | [place] [address] | | | | | | [phone] | | | | | | | | +--------+ + + + + | 11/20/ | Implant | Cardiology | Daljit Singletary, | Remote Device | | 2018 | Monitor | | MD [facility] | Interrogation | | | | | [address], | (Primary Dx); | | | | | [place] [address] | Presence of | | | | | [phone] | permanent cardiac | | | | [...] the uneventful IV administration of 80 mL [id number] contrast. Timing of | | contrast bolus [...] + | MISCELLANEOUS LAB | | | [phone] | + +---------+ + + | MISCELANIOUS LAB | | | [phone] | + +---------+ + + Troponin I [...] + | [facility] | [address] | [place], [place] | [phone] | | [facility] | | [address] | | | - LABORATORY | | | | + + + + + | [facility] | [address] | [place], [place] | | | [facility] | | [address] | | | - LABORATORY | | [...] 12 | 7 - 18 mg/dL | [facility] | | | | | | [facility] | | | | | | MEDICAL | | | | | | CENTER - | | | | | | LABORATORY | | + + + + + + | Creatinine | 0.89 | 0.60 - 1.30 | [facility] | | | | | mg/dL | [facility] | | | | | | MEDICAL | | | | | | CENTER - | | | | | | LABORATORY | | + + + + + + | eGFR if not | >60Comment: GLOMERULAR | >=60 | [facility] | | | | FILTRATION | mL/min/1.73m2 | [facility] | | | [place] | RATE,ESTIMATED | | MEDICAL | | | | mL/min/1.94x2Yjqb than | | CENTER - | | [...] | | | | | | STJuan Deigo [place]INEZ | | | | | | [...] + | [facility] | [address] | [place] | [phone] | | [facility] | | [address] | | | - LABORATORY | | | | + + + + + | [facility] | [address] | [place] | | | [facility] | | [address] | | | - LABORATORY | | [...] + | [facility] | [address] | [place] | [phone] | | [facility] | | [address] | | | - LABORATORY | | | | + + + + + | [facility] | [address] | [place] | | | [facility] | | [address] | | | - LABORATORY | | [...]
--- OUTSIDE RECORDS SUMMARY | ~2019-10-04 | XMS | Encounter Summary ---
Demographics + + + | Address | [address] | | | [place] [address] | + + + | Home Phone [...] Team Providers + +------+ + | Care Border Patrol Officer Name | Role | Phone | + +------+ + | Kirk French MD | PCP | | + +------+ + Encounter Details +--------+ + + + + | Date | Type | Department | Care Team | Description | +--------+ + + + + | 07/21/ | Hospital | [facility] | Daljit Singletary, | | | 2018 | Encounter | MED CTR NUCLEAR | MD [address] | | | | | MEDICINE [address] | [address] [place], | | | | | [place] | [place] [address] | | | | | [place] [address] | [phone] | | | | | [phone] | | | +--------+ + + + [...] + + + +---------+ + + | Grant-3 Fatty | CAPS, one capsule by | [...] | | | | | | [place] [address] | | | | | | [phone] | | | | | | | | +--------+ + + + + | 11/20/ | Implant | Cardiology | Daljit Singletary, | Remote Device | | 2019 | Monitor | | [address] [facility] | Interrogation | | | | | [place], | (Primary Dx); | | | | | [place] [address] | Presence of | | | | | [phone] | permanent cardiac | | | | [...] | | | | | | Starting [facility] 07/21/18 at 1224, For | | | | | | | 1 dose, Nuclear Medicine | | | | | | + +--------+ + +------+------+ +---+---+ | | | +---+---+ documented in this encounter"
--- OUTSIDE RECORDS SUMMARY | ~2019-10-04 | XMS | Encounter Summary ---
Demographics + + + | Address | [address] | | | [place] [address] | + + + | Home Phone [...] Team Providers + +------+ + | Care Cant Hooker Name | Role | Phone | + +------+ + | Kirk French MD | PCP | | + +------+ + Encounter Details +--------+ + + + + | Date | Type | Department | Care Team | Description | +--------+ + + + + | 10/25/ | Hospital | [facility] | Kirk French | Chronic pain | | 2017 | Encounter | MED CTR ULTRASOUND | MD [address] | disorder; Stomach | | | | [address] [place] | [address] | ache; Obesity, | | | | [place], [place] | [place] [address] | unspecified | | | | [address] | [phone] | classification, | | | | [phone] | | unspecified obesity | | | [...] W | | | | | | [place], | | | | | | [place] [address] | | | | | | [phone] | | | | | | | | +--------+ + + + + | 11/20/ | Implant | Cardiology | Daljit Singletary, | Remote Device | | 2018 | Monitor | | [address] [facility] | Interrogation | | | | | [place], | (Primary Dx); | | | | | [place] [address] | Presence of | | | | | [phone] | permanent cardiac | | | | [...]
--- OUTSIDE RECORDS SUMMARY | ~2019-10-04 | XMS | Encounter Summary ---
Demographics + + + | Address | [address] | | | [place] [address] | + + + | Home Phone [...] Providers + +------+ + | Care Planer Offbearer Name | Role | Phone | [...] | | [address] | [place] [address] | | | | | [place] | [phone] | | | | | [address] | | | | | | [phone] | | | +--------+ + + + [...] W | | | | | | [place], | | | | | | [place] [address] | | | | | | [phone] | | | | | | | | +--------+ + + + + | 11/20/ | Implant | Cardiology | Daljit Singletary, | Remote Device | | 2018 | Monitor | | MD [address] | Interrogation | | | | | [place], | (Primary Dx); | | | | | [place] [address] | Presence of | | | | | [phone] | permanent cardiac | | | | [...]
--- OUTSIDE RECORDS SUMMARY | ~2019-10-04 | XMS | Encounter Summary ---
Demographics + + + | Address | [address] | | | [place] [address] | + + + | Home Phone [...] Team Providers + +------+ + | Care C4 Planner Name | Role | Phone | [...] | 2018 | Changes | GASTROENTEROLOGY | Vice President Mission Integration | | | | | [address] [facility] | | | | | | [address] [place] | | | | | | [address] | | | | | | [phone] | | | +--------+ + + + [...] | | | | | | [place] [address] | | | | | | [phone] | | | | | | | | +--------+ + + + + | 11/20/ | Implant | Cardiology | Daljit Singletary, | Remote Device | | 2018 | Monitor | | [address] [place] | Interrogation | | | | | [place], | (Primary Dx); | | | | | [place] [address] | Presence of | | | | | [phone] | permanent cardiac | | | | [...]
--- OUTSIDE RECORDS SUMMARY | ~2019-10-04 | XMS | Encounter Summary ---
Demographics + + + | Address | [address] | | | [place] [address] | + + + | Home Phone [...] Providers + +------+ + | Care Engineer Assistant Name | Role | Phone | [...] + + | 08/31/ | Refill | [facility] | Kirk French | Medication Refill | | 2018 | | [facility] | MD [address] | | | | | [facility] [address] | [address] | | | | | [address] | [place] [address] | | | | | [place], [place] | [phone] | | | | | [address] | | | | | | [phone] | | | +--------+--------+ + + + [...] [place], | | | | | | [place] [address] | | | | | | [phone] | | | | | | | | +--------+ + + + + | 11/20/ | Implant | Cardiology | Daljit Singletary, | Remote Device | | 2018 | Monitor | | MD [address] | Interrogation | | | | | [place] [place], | (Primary Dx); | | | | | [place] [address] | Presence of | | | | | [phone] | permanent cardiac | | | | [...]
--- OUTSIDE RECORDS SUMMARY | ~2019-10-04 | XMS | Encounter Summary ---
Demographics + + + | Address | [address] | | | [place] [address] | + + + | Home Phone [...] Team Providers + +------+ + | Care Flower Maker Name | Role | Phone | [...] + + | 09/01/ | Office | [facility] | Silvia, | Ascending thoracic | | 2015 | Visit | CARDIOLOGY [address] | [address] | aortic aneurysm | | | | [address] [place], | [address] [place], | ([facility]) (Primary Dx); | | | | [place] [address] | [place] [address] | Coronary artery | | | | [phone] | [phone] | disease involving | | | | | | [place] coronary | | | | | | artery of [place] | | | | | | [...] non-critical coronary artery d isease involving [place] coronary artery of [place] heart without angina pectoris, essential h ypertension, [...] episode of chest pain while nelly ng [facility], so he took some sublingual nitroglycerin and [...] health care Coronary artery disease involving [place] coronary artery of [place] heart without angina pectoris Cannabis abuse, daily [...] by mouth every evening 90 tablet 3 [facility] Natural Products (OSTEO BI-FLEX/5-LOXIN ADVANCED PO) Take [...] 3rd dose, call 911 100 tablet 3 [place]-3 Fatty Acids (SALMON OIL-1000 PO) CAPS, one capsule by mouth daily twice daily ONE TOUCH DELICA LANCETS [facility] Check glucose as needed for [...] [facility] [place] developmental [...] He is in class II of the [place] Heart Ass 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 On physical examination there are no signs of fluid overload. The plan will be to lose weight, modify portion control, start exercising, limit sodium in take and we will start losartan 25 mg once a day with a close monitoring of blood pressure. 2. Non-critical Coronary artery disease involving [place] coronary artery of [place] heart [facility] angina pectoris: A. Normal exercise sestamibi [...] ventricular arrhythmia performed by Dr. Gambino at [facility] on 01/30/2013. Patient had spontaneous PVCs [...] to go back in 3 days to [place] for an attempt of ablation under general [...] this chart may have been created with [employer] voice recognition software. Occasi onal wrong-word or [...] | | | | | | [place] [address] | | | | | | [phone] | | | | | | | | +--------+ + + + + | 11/20/ | Implant | Cardiology | Daljit Singletary, | Remote Device | | 2019 | Monitor | | MD [address] | Interrogation | | | | | [place], | (Primary Dx); | | | | | [place] [address] | Presence of | | | | | [phone] | permanent cardiac | | | | [...] + | Coronary artery disease involving eastern shosh[place] coronary artery of eastern shosh[place] heart without | | angina pectoris | + + | Essential hypertension with goal blood pressure less than 130/80 | + + | Hyperlipidemia, mixed Mixed hyperlipidemia | + + documented in this encounter
--- OUTSIDE RECORDS SUMMARY | ~2019-10-04 | XMS | Encounter Summary ---
Demographics + + + | Address | [address] | | | [place] [address] | + + + | Home Phone [...] Providers + +------+ + | Care Clinical Account Executive Name | Role | Phone [...] [address] | | | | | | [place], [place] | (Fax) | | | | | [address] | | | | | | [phone] | | | +--------+ + + + [...] | | | | | | [place] [address] | | | | | | [phone] | | | | | | | | +--------+ + + + + | 11/20/ | Implant | Cardiology | Daljit Singletary, | Remote Device | | 2018 | Monitor | | [address] [facility] | Interrogation | | | | | [address], | (Primary Dx); | | | | | [place] [address] | Presence of | | | | | [phone] | permanent cardiac | | | | [...]
--- OUTSIDE RECORDS SUMMARY | ~2019-10-04 | XMS | Encounter Summary ---
Demographics + + + | Address | [address] | | | [place] [address] | + + + | Home Phone [...] + +------+ + | Care Utility Worker Roller Shop Name | Role | Phone | [...] [place] | | | | | [address] [place], [place] | [address] | | | | | [address] | | | | | | [phone] | | | +--------+ + + + [...] | | | | | | [place], | | | | | | [place] [address] | | | | | | [phone] | | | | | | | | +--------+ + + + + | 11/20/ | Implant | Cardiology | Daljit Singletary, | Remote Device | | 2018 | Monitor | | [address] [facility] | Interrogation | | | | | [place], | (Primary Dx); | | | | | [place] [address] | Presence of | | | | | [phone] | permanent cardiac | | | | [...]
--- OUTSIDE RECORDS SUMMARY | ~2019-10-04 | XMS | Encounter Summary ---
Demographics + + + | Address | [address] | | | [place] [address] | + + + | Home Phone [...] Providers + +------+ + | Care Whizzer Operator Name | Role | Phone | [...] + | 03/24/ | Telephone | [facility] | [place], | Other (chest pain) | | 2018 | | CARDIOLOGY [address] | [address] | | | | | [facility] [place], | [facility] [place], | | | | | [place] [address] | [place] [address] | | | | | [phone] | [phone] | | | | | | | [...] | | | | | | [place] [address] | | | | | | [phone] | | | | | | | | +--------+ + + + + | 11/20/ | Implant | Cardiology | Daljit Singletary, | Remote Device | | 2019 | Monitor | | MD [address] | Interrogation | | | | | [place], | (Primary Dx); | | | | | [place] [address] | Presence of | | | | | [phone] | permanent cardiac | | | | [...]
--- OUTSIDE RECORDS SUMMARY | ~2019-10-04 | XMS | Encounter Summary ---
Demographics + + + | Address | [address] | | | [place] [address] | + + + | Home Phone [...] Providers + +------+ + | Care Manager Valuation Name | Role | Phone | + [...] 2014 | | CARDIOLOGY [address] | AIRBORNE SENSOR SPECIALIST [address] | edema and chest | | | | [place], | [facility] [place] | pain) | | | | [place] [address] | [address] | | | | | [phone] | | | +--------+ + + + [...] W | | | | | | [place], | | | | | | [place] [address] | | | | | | [phone] | | | | | | | | +--------+ + + + + | 11/20/ | Implant | Cardiology | Daljit Singletary, | Remote Device | | 2018 | Monitor | | MD [facility] | Interrogation | | | | | [place], | (Primary Dx); | | | | | [place] [address] | Presence of | | | | | [phone] | permanent cardiac | | | | [...]
--- OUTSIDE RECORDS SUMMARY | ~2019-10-04 | XMS | Encounter Summary ---
Demographics + + + | Address | [address] | | | [place] [address] | + + + | Home Phone [...] Providers + +------+ + | Care Group Fitness Instructor Name | Role | Phone | [...] | | | | CENTER [address] | [place], [place] | | | | | [place], [place] | [address] | | | | | [address] | | | | | | [phone] | | | +--------+ + + + [...] new doc you can try [facility] at [facility] documented in this encounter Medications [...] + + + +---------+ + + | [place]-3 Fatty | CAPS, one capsule by | [...] | | | | | | [place], | | | | | | [place] [address] | | | | | | [phone] | | | | | | | | +--------+ + + + + | 11/20/ | Implant | Cardiology | Daljit Singeltary, | Remote Device | | 2019 | Monitor | | MD [address] | Interrogation | | | | | [place], | (Primary Dx); | | | | | [place] [address] | Presence of | | | | | [phone] | permanent cardiac | | | | [...]
--- OUTSIDE RECORDS SUMMARY | ~2019-10-04 | XMS | Encounter Summary ---
Demographics + + + | Address | [address] | | | [place] [address] | + + + | Home Phone [...] Providers + +------+ + | Care Surgical Resident Name | Role | Phone | + +------+ + PCP | Unavailable | + +------+ + Encounter Details +--------+ + + + + | Date | Type | Department | Care Team | Description | +--------+ + + + + | 06/17/ | Hospital | [facility] | | | | 2008 | Encounter | MED CTR EMERGENCY | | | | | | [place] [address] | | | | | | [place] | | | | | | [address] | | | | | | [phone] | | | +--------+ + + + [...] | | | | | | [place] [address] | | | | | | [phone] | | | | | | | | +--------+ + + + + | 11/20/ | Implant | Cardiology | Daljit Singletary, | Remote Device | | 2018 | Monitor | | [address] [facility] | Interrogation | | | | | [place], | (Primary Dx); | | | | | [place] [address] | Presence of | | | | | [phone] | permanent cardiac | | | | [...]
--- OUTSIDE RECORDS SUMMARY | ~2019-10-04 | XMS | Encounter Summary ---
Demographics + + + | Address | [address] | | | [place] [address] | + + + | Home Phone [...] Organization | [facility] | | | [...] Team Providers + +------+ + | Care Telecommunication Equipment Repairer Name | Role | Phone [...] 2019 | | GASTROENTEROLOGY | MD [address] | | | | | [address] | [place]. [place] | | | | | [address] [place] | [place] [address] | | | | | [address] | | | | | | [phone] | | | +--------+ + + + [...] W | | | | | | [place], | | | | | | [place] [address] | | | | | | [phone] | | | | | | | | +--------+ + + + + | 11/20/ | Implant | Cardiology | Daljit Singletary, | Remote Device | | 2018 | Monitor | | [address] [facility] | Interrogation | | | | | [place], | (Primary Dx); | | | | | [place] [address] | Presence of | | | | | [phone] | permanent cardiac | | | | [...]
--- OUTSIDE RECORDS SUMMARY | ~2019-10-04 | XMS | Encounter Summary ---
Demographics + + + | Address | [address] | | | [place] [address] | + + + | Home Phone [...] Team Providers + +------+ + | Care Angledozer Operator Name | Role | Phone | + +------+ + PCP | Unavailable | + +------+ + Encounter Details +--------+ + + + + | Date | Type | Department | Care Team | Description | +--------+ + + + + | 02/21/ | [facility] | [facility] | Cristy Braun | | | 2008 | Encounter | MED CTR EMERGENCY | Ronald Adrian MD [address] | | | | | [place] [address] | [facility] | | | | | [place] | [place] [address] | | | | | [address] | [phone] | | | | | [phone] | | | +--------+ + + + [...] | | | | | | [place] [address] | | | | | | [phone] | | | | | | | | +--------+ + + + + | 11/20/ | Implant | Cardiology | Daljit Singletary, | Remote Device | | 2018 | Monitor | | MD Chiquis Oro | Interrogation | | | | | [place], | (Primary Dx); | | | | | [place] [address] | Presence of | | | | | [phone] | permanent cardiac | | | | [...]
--- OUTSIDE RECORDS SUMMARY | ~2019-10-04 | XMS | Encounter Summary ---
Demographics + + + | Address | [address] | | | [place] [address] | + + + | Home Phone [...] Providers + +------+ + | Care Skills Trainer Name | Role | Phone | [...] | | | | CENTER [address] | [address] | | | | | [place] | [place] | | | | | [address] | [address] | | | | | [phone] | | | +--------+ + + + [...] | | | | | | | [place] coronary | | | | | | | artery of [place] | | | | | | | [...] | | | | | | [place] [address] | | | | | | [phone] | | | | | | | | +--------+ + + + + | 11/20/ | Implant | Cardiology | Daljit Singletary, | Remote Device | | 2018 | Monitor | | [facility] | Interrogation | | | | | [place], | (Primary Dx); | | | | | [place] [address] | Presence of | | | | | [phone] | permanent cardiac | | | | [...] | | | | | | [employer] | | | | | [...] [address] | [place] | [phone] | | [facility] | | [address] | | | - LABORATORY | | [...] | + + + + + | [address] | [address] | [place] | [phone] | | [facility] | | [address] | | | - LABORATORY | | [...] in | 12 - 53 U/L | [facility] | | | | use as of January 18 | | [facility] | | | | 2018. Check [...] + | [facility] | [address] | [place] | [phone] | | [facility] | | [address] | | | - LABORATORY | | [...] mL/min/1.73m2 | [facility] | | | TAIW[place]ESE | RATE,ESTIMATED | | MEDICAL | | | | mL/min/1.16w6Owkx than | | CENTER - | | [...] ST. | [address] | [place], [place] | [phone] | | [facility] | | [address] | | | - LABORATORY | | [...] + | [address] | [address] | [place] | [phone] | | [facility] | | [address] | | | - LABORATORY | | [...] [address] | [place] | [phone] | | [facility] | | [address] | | | - LABORATORY | | [...] | | | | ANGELA MARADIAGA MD ([id number]) | | | | | | on [...] | | | | | Patient Address: [address] [place] [address] | | | | | | | [place] [address], | | | | | | + + + +------+---+---+ +---+---+ | | | +---+---+ documented in this encounter
--- OUTSIDE RECORDS SUMMARY | ~2019-10-04 | XMS | Encounter Summary ---
Demographics + + + | Address | [address] | | | [place] [address] | + + + | Home Phone [...] + +------+ + | Care Profiling Machine Set Up Operator Tool Name | Role | Phone | + [...] Provider Unknown | | | | | [place], [place] | [phone] | | | | | [address] | | | | | | [phone] | | | +--------+ + + + [...] + + + +---------+ + + | [place]-3 Fatty | CAPS, one capsule by | [...] W | | | | | | [place], | | | | | | [place] [address] | | | | | | [phone] | | | | | | | | +--------+ + + + + | 11/20/ | Implant | Cardiology | Daljit Singletary, | Remote Device | | 2018 | Monitor | | MD [address] [place] | Interrogation | | | | | [place], | (Primary Dx); | | | | | [place] [address] | Presence of | | | | | [phone] | permanent cardiac | | | | [...]
--- OUTSIDE RECORDS SUMMARY | ~2019-10-04 | XMS | Encounter Summary ---
Demographics + + + | Address | [address] | | | [place] [address] | + + + | Home Phone [...] Providers + +------+ + | Care Molasses Feed Mixer Name | Role | Phone | [...] type ER | [address] | [address] | | | | | FUP | [place] | [place], | | | | | Procedures | [place], [place] | [place] [address] | | | | | FUP - SUW & | [address] | Phone: | | | | | EVM PT, LAST | Phone: | [phone] | | | | | SEEN | [phone] | Fax: | | | | | 08-24-18 | Fax: | [phone] | | | | | | [phone] | | +--------+ + + + + [...] | | | | CENTER [address] | [address] [place] | (Primary Dx) | | | | [place], [place] | [place] [address] | | | | | [address] | [phone] | | | | | [phone] | | | +--------+ + + + [...] through Care Everywhere.Chest Pain, Unc ertain Cause (Sinhala)documented in this encounter Medications at Time of [...] + + + +---------+ + + | [place]-3 Fatty | CAPS, one capsule by | [...] W | | | | | | [place], | | | | | | [place] [address] | | | | | | [phone] | | | | | | | | +--------+ + + + + | 11/20/ | Implant | Cardiology | Daljit Singletary, | Remote Device | | 2018 | Monitor | | [address] | Interrogation | | | | | [place], | (Primary Dx); | | | | | [place] [address] | Presence of | | | | | [phone] | permanent cardiac | | | | [...] | | | | ANGELA MARADIAGA MD ([id number]) | | | | | | on [...] [address] | [place] | [phone] | | [facility] | | [address] | | | - LABORATORY | | [...] [address] | [place] | [phone] | | [facility] | | [address] | | | - LABORATORY | | [...] - 1.030 | [facility] | | | [place] | | | [facility] | | [...] ST. | [address] | [place] | [phone] | | [facility] | | [address] | | | - LABORATORY | | [...] + | [facility] | [address] | [place] | [phone] | | [facility] | | [address] | | | - LABORATORY | | [...] [address] | [place] | [phone] | | [facility] | | [address] | | | - LABORATORY | | [...] [address] | [place] | [phone] | | [facility] | | [address] | | | - LABORATORY | | [...] 13 | 7 - 18 mg/dL | [facility] | | | | | | [facility] | | | | | | MEDICAL | | | | | | CENTER - | | | | | | LABORATORY | | + + + + + + | Creatinine | 0.96 | 0.60 - 1.30 | [place] | | | | | mg/dL | [facility] | | | | | | MEDICAL | | | | | | CENTER - | | | | | | LABORATORY | | + + + + + + | eGFR if not | >60Comment: GLOMERULAR | >=60 | [facility] | | | | FILTRATION | mL/min/1.73m2 | [facility] | | | AZER[place]IJANI | RATE,ESTIMATED | | MEDICAL | | | | mL/min/1.43o0Hcea than | | CENTER - | | [...] ST. | [address] | [place] | [phone] | | [facility] | | [address] | | | - LABORATORY | | [...] ST. | [address] | [place] | [phone] | | [facility] | | [address] | | | - LABORATORY | | [...] | | | | ANGELA MARADIAGA MD ([id number]) | | | | | | on [...]
--- OUTSIDE RECORDS SUMMARY | ~2019-10-04 | XMS | Encounter Summary ---
Demographics + + + | Address | [address] | | | [place] [address] | + + + | Home Phone [...] Team Providers + +------+ + | Care Outsole Cementer Name | Role | Phone | [...] | | | | [place] | | [address] Phone: | | | | | CYSTO/URETER | | [phone] | | | | | O | | Fax: | | | | | W/LITHOTRIPS | | [phone] | | | | | Y &INDWELL [...] + + | 04/13/ | Hospital | [facility] | Mathtew Uriarte | Preoperative | | 2019 | Encounter | MED CTR OR INTRA OP | Dahl, MD [address] | clearance (Primary | | | | [address] | [place], [place] | Dx); Left ureteral | | | | [place], [place] | [address] | calculus; Kidney | | | | [address] | | stones | | | | [phone] | | | +--------+ + + + [...] Care Everywhere.Kidney Stones, Treating: Ureteroscopic Stone Removal (Kosovan)Stents, Ureteral (Kosovan)documented in this encounter Medications at Time of [...] + + + +---------+ + + | [place]-3 Fatty | CAPS, one capsule by | [...] W | | | | | | [place], | | | | | | [place] [address] | | | | | | [phone] | | | | | | | | +--------+ + + + + | 11/20/ | Implant | Cardiology | Daljit Singletary, | Remote Device | | 2018 | Monitor | | [address] [facility] [place] | Interrogation | | | | | [place], | (Primary Dx); | | | | | [place] [address] | Presence of | | | | | [phone] | permanent cardiac | | | | [...] [facility] | | | | | | at:[phone]. | | | | + + + [...] + | Performed at: 01 - [facility] [address] | REFERENCE LAB | | [place], [place] [id number] Stock Counter: Yeny Rios MD, Phone: | ARSH CASTANON | | [phone] | | + + + + + + + + | Performing | Address | City/State/Zipcode | Phone Number | | Organization | | | | + + + + + | REFERENCE LAB | [address] | [place] [address] | [phone] | | [facility] | Drive [...] ST. | [address] | [place] | [phone] | | [facility] | | [address] | | | - LABORATORY | | [...] ST. | [address] | [place] | [phone] | | [facility] | | [address] | | | - LABORATORY | | [...] [address] | [place] | [phone] | | [facility] | | [address] | | | - LABORATORY | | [...] ST. | [address] | [place] | [phone] | | [facility] | | [address] | | | - LABORATORY | | [...] | 0.92 | 0.70 - 1.30 | [facility] | | | | | mg/dL | [facility] | | | | | | MEDICAL | | | | | | CENTER - | | | | | | LABORATORY | | + + + + + + | eGFR if not | >60Comment: GLOMERULAR | >=60 | [place] | | | | FILTRATION | mL/min/1.73m2 | [facility] | | | [place] | RATE,ESTIMATED | | MEDICAL | | | | mL/min/1.15q0Mmoo than | | CENTER - | | [...] [address] | [place] | [phone] | | [facility] | | [address] | | | - LABORATORY | | [...] day), First | | | dose on [facility] 04/13/19 at 1400, | | | Start 8 hours after pre-op dose., | | | Post-op/Phase II | | + +---+ | | | + +---+ | albuterol 2.5 mg/3 mL nebulizer | | | solution 2.5 mg 2.5 mg, | | | Nebulization, ONCE PRN, Wheezing, | | | Starting [facility] 04/13/19 at 0917, | | [...] HR < 40, | | | Starting [facility] 04/13/19 at 0917, For | [...] | | | | | | | ikmhrn-anm-liszi use of at least | | | [...] day), | | | First dose on [facility] 04/13/19 at | | | 2030, If [...] | | | | PRN, Pain, Starting [facility] 04/13/19 | | AM PDT | | [...] Anxiety, or agitation, Starting | | | [facility] 04/13/19 at 0917, Maximum | | | [...]
--- OUTSIDE RECORDS SUMMARY | ~2019-10-04 | XMS | Encounter Summary ---
Demographics + + + | Address | [address] | | | [place] [address] | + + + | Home Phone [...] Team Providers + +------+ + | Care Exhibit Builder Name | Role | Phone | [...] [address] | | | | | [address] | [place] | | | | | [phone] | [address] | | | | | | [phone] | | | | | | | [...] Notes by Kylah Fraser CMA at 04/11/18 8164 Author: Kylah Fraser CMA Service: (none) Author Type: Dip Tube Assembler Machine Filed: 04/19/18 1118 Encounter Date: 04/11/2018 Status: Signed Special Programs Director: Kylah Fraser CMA (Dip Tube Assembler Machine) See telephone encounter 04/19/18. Karen pfeiffer in this encounter Plan of Treatment +--------+ + + + + | Date | Type | Specialty | Care Team | Description | +--------+ + + + + | 11/09/ | Office | Cardiology | Silvia, | | | 2019 | Visit | | PARISA Vernon [address] | | | | | | [place], | | | | | | [place] [address] | | | | | | [phone] | | | | | | | | +--------+ + + + + | 11/20/ | Implant | Cardiology | Daljit Singletary, | Remote Device | | 2018 | Monitor | | MD [address] [place] | Interrogation | | | | | [place], | (Primary Dx); | | | | | [place] [address] | Presence of | | | | | [phone] | permanent cardiac | | | | [...]
--- OUTSIDE RECORDS SUMMARY | ~2019-10-04 | XMS | Encounter Summary ---
Demographics + + + | Address | [address] | | | [place] [address] | + + + | Home Phone [...] Providers + +------+ + | Care Mine Safety Manager Name | Role | Phone | + +------+ + PCP | Unavailable | + +------+ + Encounter Details +--------+ + + + + | Date | Type | Department | Care Team | Description | +--------+ + + + + | 04/22/ | Hospital | [facility] | | | | 2011 | Encounter | MED CTR XRAY [address] | | | | | | [place] | | | | | | [place] [address] | | | | | | [phone] | | | +--------+ + + + [...] | | | | | | [place] [address] | | | | | | [phone] | | | | | | | | +--------+ + + + + | 11/20/ | Implant | Cardiology | Daljit Singletary, | Remote Device | | 2018 | Monitor | | MD Chiquis [address]ro | Interrogation | | | | | [place], | (Primary Dx); | | | | | [place] [address] | Presence of | | | | | [phone] | permanent cardiac | | | | [...] [facility] | [facility] | | [address] [facility] | [facility] | | CT MYELOGRAM LUMBAR SPINE, | [...] Transcribed Date/Time: | | | 04/23/2012 11:06 Automobile Spring Repairer: <Electronically Signed | | | by Jama Solis MD> 04/24/12 0730 | | + + + + + | Procedure Note | + + | Kevin, Rad Conversion - 12/29/2013 5:27 PM [facility] | | Diagnostic Imaging Department [address] [place] [address] | | CT MYELOGRAM LUMBAR SPINE, 04/22/2012 [...] <Electronically Signed by Jama Solis MD> 04/24/12 9230 | | | |L3-4: Minimal broad-based disk [...] 10:54 | |Transcribed Date/Time: 04/23/2012 11:06 | |Automobile Spring Repairer: | |<Electronically Signed by Jama Solis MD> 04/24/12 2130 | + + + +---------+ + + | Performing | Address | City/State/Zipcode | Phone Number | | Organization | | | | + +---------+ + + | [place] | | | | | [facility] | | | | + +---------+ + + CT Thoracic Spine w Contrast (04/22/2012 1:12 PM PDT) + + | Specimen | + + | | + + + + + | Narrative | Performed At | + + + | [facility] | [facility] | | [address] [facility] | [facility] | | THORACIC CT MYELOGRAM | DIAG [...] Transcribed Date/Time: 04/22/2012 17:32 | | | Automobile Spring Repairer: <Electronically Signed by Jama Mason | | | MD Will> 04/23/12 1039 | | + + + + + | Procedure Note | + + | Kalpesh Brown Conversion - 12/29/2013 5:27 PM [facility] | | Diagnostic Imaging Department [address] [place] [address] | | THORACIC CT MYELOGRAM CLINICAL HISTORY: [...] 16:56 | |Transcribed Date/Time: 04/22/2012 17:32 | |Automobile Spring Repairer: | |<Electronically Signed by Jama Solis MD> [...] [facility] | [facility] | | [address] [facility] | [facility] | | CT MYELOGRAM CERVICAL SPINE | [...] Similar study from | | | 09/02/2009, [facility]. FINDINGS: Firm bony ankylosis | | [...] Transcribed Date/Time: | | | 04/22/2012 17:25 Automobile Spring Repairer: <Electronically Signed | | | by Jama Solis MD> 04/23/12 1039 | | + + + + + | Procedure Note | + + | Kalpesh Brown Conversion - 12/29/2013 5:27 PM [facility] | | Diagnostic Imaging Department | | [address] [facility] | | | | | [...] | | COMPARISON: Similar study from 09/02/2009, [facility]. | | | | FINDINGS: Firm [...] | Transcribed Date/Time: 04/22/2012 17:25 | | Automobile Spring Repairer: | | <Electronically Signed by Jama Solis [...] [facility] | [facility] | | [address] [facility] | [facility] | | LUMBAR MYELOGRAM INJECTION FOR CT [...] Transcribed Date/Time: 04/22/2012 16:36 | | | Automobile Spring Repairer: <Electronically Signed by Jama Mason | | | MD Will> 04/23/12 1039 | | + + + + + | Procedure Note | + + | Kalpesh Brown Conversion - 12/29/2013 5:27 PM [facility] | | Diagnostic Imaging Department [address] [place] [address] | | LUMBAR MYELOGRAM INJECTION FOR CT [...] 15:51 | |Transcribed Date/Time: 04/22/2012 16:36 | |Automobile Spring Repairer: | |<Electronically Signed by Jama Solis MD> [...]
--- OUTSIDE RECORDS SUMMARY | ~2019-10-04 | XMS | Encounter Summary ---
Demographics + + + | Address | [address] | | | [place] [address] | + + + | Home Phone [...] + + | 12/16/ | Hospital | [facility] | | | | 2010 | Encounter | MED CTR LABORATORY | | | | | | [address] | | | | | | [place] | | | | | | [address] | | | | | | [phone] | | | +--------+ + + + [...] | | | | | | [place] [address] | | | | | | [phone] | | | | | | | | +--------+ + + + + | 11/20/ | Implant | Cardiology | Daljit Singletary, | Remote Device | | 2018 | Monitor | | [address] [facility] | Interrogation | | | | | [place], | (Primary Dx); | | | | | [place] [address] | Presence of | | | | | [phone] | permanent cardiac | | | | [...]
--- OUTSIDE RECORDS SUMMARY | ~2019-10-04 | XMS | Encounter Summary ---
Demographics + + + | Address | [address] | | | [place] [address] | + + + | Home Phone [...] Providers + +------+ + | Care Health Careers Instructor Name | Role | Phone | [...] 2012 | | CARDIOLOGY [address] | RESULTS TECHNICIAN [address] | faxed) | | | | [place], | [place] [facility], [place] | | | | | [place] [address] | [address] | | | | | [phone] | | | +--------+ + + + [...] W | | | | | | [place], | | | | | | [place] [address] | | | | | | [phone] | | | | | | | | +--------+ + + + + | 11/20/ | Implant | Cardiology | Daljit Singletary, | Remote Device | | 2018 | Monitor | | [address] [facility] | Interrogation | | | | | [place], | (Primary Dx); | | | | | [place] [address] | Presence of | | | | | [phone] | permanent cardiac | | | | [...]
--- OUTSIDE RECORDS SUMMARY | ~2019-10-04 | XMS | Encounter Summary ---
Demographics + + + | Address | [address] | | | [place] [address] | + + + | Home Phone [...] Team Providers + +------+ + | Care Magisterial District Judge Name | Role | Phone | + +------+ + | Kirk French MD | PCP | | + +------+ + Encounter Details +--------+---------+ + + + | Date | Type | Department | Care Team | Description | +--------+---------+ + + + | 12/24/ | Surgery | [facility] | Emmanuel Daniel MD | EGD | | 2018 | | MED CTR MP INTRA OP | [address], [place] | | | | | [address] | [address] [place], [place] | | | | | [place], [place] | [address] | | | | | [address] | | | | | | [phone] | | | +--------+---------+ + + + [...] + + + +---------+ + + | Wanblee-3 Fatty | CAPS, one capsule by | [...] | | | | | | [place] [id number] | | | | | | [phone] | | | | | | | | +--------+ + + + + | 11/20/ | Implant | Cardiology | Daljit Singletary, | Remote Device | | 2019 | Monitor | | [facility] | Interrogation | | | | | [place], | (Primary Dx); | | | | | [place] [id number] | Presence of | | | | | [phone] | permanent cardiac | | | | [...] + | Performed at: 01 - [address] [place] [address], | REFERENCE LAB | | [place], [place] [id number] Bottom Hoop Driver: William Andrew MD, Phone: | [facility] - [facility] | | [phone] | | + + + + + + + + | Performing | Address | City/State/Zipcode | Phone Number | | Organization | | | | + + + + + | REFERENCE LAB | [address] | [place] [address] | [phone] | | [facility] | [facility] [place] | | | + + + + [...] [address] | [place] | [phone] | | [facility] | | [address] | | | - LABORATORY | | [...] | | Aeromonas, Plesiomonas, | | [facility] | | | | E. coli [...] [address] | [place] | [phone] | | [facility] | | [address] | | | - LABORATORY | | [...] [address] | [place] | [phone] | | [facility] | | [address] | | | - LABORATORY | | [...] + + | Performed at: 01 - [facility] [address], | REFERENCE LAB | | [place], [place] [id number] Bottom Hoop Driver: William Andrew MD, Phone: | [facility] | | [phone] | | + + + + + + + + | Performing | Address | City/State/Zipcode | Phone Number | | Organization | | | | + + + + + | REFERENCE LAB | [address] | [place] [address] | [phone] | | [facility] | [facility] | | | + [...] + | [facility] | [address] | [place] | [phone] | | [facility] | | [address] | | | - LABORATORY | | [...] [address] | [place] | [phone] | | [facility] | | [address] | | | - LABORATORY | | [...] | | dium | | | [facility] | | | Antigen | | [...] [address] | [place] | [phone] | | [facility] | | [address] | | | - LABORATORY | | [...] [address] | [place] | [phone] | | [facility] | | [address] | | | - LABORATORY | | [...] [address] | [place] | [phone] | | [facility] | | [address] | | | - LABORATORY | | | | + + + + + EGD (12/24/2017 1:19 PM PST) + + | Specimen | + + | | + + + + -+ | Narrative | Performed At | + + -+ | | [facility] | | GastroenterologyPatient Name: Moe SanchezKane Date: 12/24/2017 | [facility] | | 1:19 PMMRN: [id number] #: [id number] of : | | | 1960Admit Type: AmbulatoryAge: 57Room: [facility] 01Gender: MaleNote | | | Status: FinalizedAttending MD: Emmanuel Daniel , [facility]: | | | Upper GI endoscopyIndications: Diarrhea, Weight | | | lossProviders: Emmanuel Daniel MD, Maria Isabel Morris RN, | | | Kim Hicks, Heat And Frost Insulator Helper, Jarett | | | Sapna Barakat MD [...] the anesthesiologist and | | | the preventative maintenance technician in the endoscopy suite. Mental Status [...] PMScope Out: 1:31:13 PM | | | [facility], [address] [place] [address] | | | [place] [address] | | | - Discharge patient to [...] |Scope Out: 1:31:13 PM | | | [facility], [address], [place] | | | [address] | | + + -+ + +---------+ [...] 12/24/2017 | [facility] | | 1:17 PMMRN: [id number] #: [id number] of : | | | 9Admit Type: AmbulatoryAge: 57Room: [facility] 01Gender: MaleNote | | | Status: FinalizedAttending MD: Emmanuel Daniel , [facility]cedure: | | | ColonoscopyIndications: Clinically significant diarrhea of | | | unexplained originProviders: Emmanuel Daniel MD, Maria Isabel | | | Arturo RN, Kim Hicks, Heat And Frost Insulator Helper, | | | Jarett Barakat MD (Anesthesia [...] | | | the anesthesiologist and the preventative maintenance technician in the endoscopy suite. | | [...] Scope In: 1:32:55 PMScope Out: 1:48:[address] [facility] | | | [facility], [address] [place] [address] | | | [phone] | | | - Await pathology results. [...] |Scope Out: 1:48:57 PM | | | [facility], [address] [place] [address] | | | [address] | | + + -+ + +---------+ [...] duodenitis with mild | | | activity, Rhoan gland hyperplasia, gastric foveolar metaplasia and | [...] | colonic mucosa with focal adenomatous change. CLR:[facility]:C2NR | | | GROSS DESCRIPTION: [...] | | cm, submitted, all in (D1). ka:CLR:[facility] ADDITIONAL NOTES: | | | Immunohistochemical studies were performed on this case with the | | | appropriate positive controls that react as expected. This test was | | | developed and its performance characteristics determined by [facility] | | | [facility]. It has not been cleared or approved by the U.S. Food | | | and Drug Administration. The FDA has determined that such clearance | | | or approval is not necessary. This test is used for clinical | | | purposes. It should not be regarded as investigational or for | | | research. [facility] is certified under the Clinical | | | Laboratory Improvement Amendments of 1988 (CLIA) as qualified to | | | perform high complexity clinical laboratory testing. This assay | | | has not been validated for specimens that have been decalcified. | | | PERFORMING LABORATORY: Tissue processing and slide preparation were | | | performed by [facility], [address], [facility] | | | [place] [address] (Dietetic Assistant: Evan Frausto M.D. CLIA#: | | | [id number]). Professional interpretation was performed by [facility] | | | [facility], [address], [place] [address] | | | (Dietetic Assistant: Evan Frausto M.D.; CLIA#: [id number]). | | | Diagnostician: Rafael Bales MD [...]
--- OUTSIDE RECORDS SUMMARY | ~2019-10-04 | XMS | Encounter Summary ---
Demographics + + + | Address | [address] | | | [place] [address] | + + + | Home Phone [...] Providers + +------+ + | Care Vehicle Service Attendant Name | Role | Phone [...] Eva ROUSE | | | | | [place], [place] | [address] | | | | | [address] | [place] [address] | | | | | [phone] | [phone] | | | | | | | [...] | | | | | | [place], | | | | | | [place] [address] | | | | | | [phone] | | | | | | | | +--------+ + + + + | 11/20/ | Implant | Cardiology | Daljit Singletary, | Remote Device | | 2018 | Monitor | | [address] | Interrogation | | | | | [place], | (Primary Dx); | | | | | [place] [address] | Presence of | | | | | [phone] | permanent cardiac | | | | [...]
--- OUTSIDE RECORDS SUMMARY | ~2019-10-04 | XMS | Encounter Summary ---
Demographics + + + | Address | [address] | | | [place] [address] | + + + | Home Phone [...] Providers + +------+ + | Care Hand Launderer Name | Role | Phone | + +------+ + | Michael Amanda DO | PCP | | + +------+ + Encounter Details +--------+ + + + + | Date | Type | Department | Care Team | Description | +--------+ + + + + | 10/01/ | Hospital | [facility] | Mary Bradshaw | | | 2013 | Encounter | MED CTR JORDEN DAIGLE | Guy Larkin MD | | | | | [address] [place] | [address] | | | | | [place], [place] | [place], [place] | | | | | [address] | [address] | | | | | [phone] | | | +--------+ + + + [...] | | | | | | [place] [address] | | | | | | [phone] | | | | | | | | +--------+ + + + + | 11/20/ | Implant | Cardiology | Daljit Singletary, | Remote Device | | 2019 | Monitor | | [place] [facility] | Interrogation | | | | | [facility], | (Primary Dx); | | | | | [place] [address] | Presence of | | | | | [phone] | permanent cardiac | | | | [...] + | MISCELLANEOUS LAB | | | [phone] | + +---------+ + + | MISCELANIOUS LAB | | | [phone] | + +---------+ + + documented in this encounter Visit Diagnoses Not on filedocumented in this encounter"
--- OUTSIDE RECORDS SUMMARY | ~2019-10-04 | XMS | Encounter Summary ---
Demographics + + + | Address | [address] | | | [place] [address] | + + + | Home Phone [...] Providers + +------+ + | Care Rn Diabetes Name | Role | Phone | + [...] | | [address] | [place] [address] | | | | | [place] | [phone] | | | | | [address] | | | | | | [phone] | | | +--------+ + + + [...] | | | | | | [address] [place], | | | | | | [place] [address] | | | | | | [phone] | | | | | | | | +--------+ + + + + | 11/20/ | Implant | Cardiology | Daljit Singletary, | Remote Device | | 2018 | Monitor | | MD [address] | Interrogation | | | | | [facility], | (Primary Dx); | | | | | [place] [address] | Presence of | | | | | [phone] | permanent cardiac | | | | [...]
--- OUTSIDE RECORDS SUMMARY | ~2019-10-04 | XMS | Encounter Summary ---
Demographics + + + | Address | [address] | | | [place] [address] | + + + | Home Phone [...] + +------+ + | Care Washer And Crusher Tender Name | Role | Phone | + +------+ + PCP | Unavailable | + +------+ + Encounter Details +--------+ + + + + | Date | Type | Department | Care Team | Description | +--------+ + + + + | 01/31/ | Hospital | [facility] | | | | 2008 | Encounter | MED CTR EMERGENCY | | | | | | [place] [address] | | | | | | [place] | | | | | | [address] | | | | | | [phone] | | | +--------+ + + + [...] | | | | | | [place] [address] | | | | | | [phone] | | | | | | | | +--------+ + + + + | 11/20/ | Implant | Cardiology | Daljit Singletary, | Remote Device | | 2018 | Monitor | | [address] [facility] | Interrogation | | | | | [address] [place], | (Primary Dx); | | | | | [place] [address] | Presence of | | | | | [phone] | permanent cardiac | | | | [...]
--- OUTSIDE RECORDS SUMMARY | ~2019-10-04 | XMS | Encounter Summary ---
Demographics + + + | Address | [address] | | | [place] [address] | + + + | Home Phone [...] Team Providers + +------+ + | Care Harvest Worker Fruit Name | Role | Phone | + [...] [address] | | | | | [address] | [place] | | | | | [phone] | [address] | | | | | | [phone] | | | | | | | [...] W | | | | | | [place], | | | | | | [place] [address] | | | | | | [phone] | | | | | | | | +--------+ + + + + | 11/20/ | Implant | Cardiology | Daljit Singletary, | Remote Device | | 2018 | Monitor | | MD [address] | Interrogation | | | | | [place], | (Primary Dx); | | | | | [place] [address] | Presence of | | | | | [phone] | permanent cardiac | | | | [...]
--- OUTSIDE RECORDS SUMMARY | ~2019-10-04 | XMS | Encounter Summary ---
Demographics + + + | Address | [address] | | | [place] [address] | + + + | Home Phone [...] Team Providers + +------+ + | Care Photocomposing Machine Operator Name | Role | Phone [...] + + | 12/14/ | Telephone | [facility] | Emmanuel Daniel MD | Follow-up, Office | | 2019 | | GASTROENTEROLOGY | [address], [place] | Visit (wants to | | | | [address] [place] | [address] [place] | cancel his office | | | | [address] [place] | [address] | appointment today) | | | | [address] | | | | | | [phone] | | | +--------+ + + + [...] | | | | | | [place] [address] | | | | | | [phone] | | | | | | | | +--------+ + + + + | 11/20/ | Implant | Cardiology | Daljit Singletary, | Remote Device | | 2019 | Monitor | | [address] [facility] | Interrogation | | | | | [address], | (Primary Dx); | | | | | [place] [address] | Presence of | | | | | [phone] | permanent cardiac | | | | [...]
--- OUTSIDE RECORDS SUMMARY | ~2019-10-04 | XMS | Encounter Summary ---
Demographics + + + | Address | [address] | | | [place] [address] | + + + | Home Phone [...] Providers + +------+ + | Care Quality Technician Fiberglass Name | Role | Phone | + [...] unspecified | [address] | [address] | | | | | type | [address] | [place], | | | | | Procedures | [place], | [place] | | | | | [place] | [place] [address] | [address] | | | | | Stress Test | Phone: | Phone: | | | | | (Vasodilator | [phone] | [phone] | | | | | ) CHG | Fax: | Fax: | | | | | MYOCARDIAL | [phone] | [phone] | | | | | SPECT | | | | | | | MULTIPLE | | | | | | | STUDIES [place] | | | | | | | CV STRS TST | | | | | | | XERS&/OR RX | | | | | | | CONT ECG W/O | | | | | | | I&R [place] | | | | | | [...] | type | [address] | [address] | | | | | Procedures | [place] | [place], | | | | | F[place] | [place] | [place] [address] | | | | | | [address] | Phone: | | | | | | Phone: | [phone] | | | | | | [phone] | Fax: | | | | | | Fax: | [phone] | | | | | | [phone] | | +--------+ + + + + + Encounter Details +--------+---------+ + + + | Date | Type | Department | Care Team | Description | +--------+---------+ + + + | 06/27/ | Office | [facility] | Sydni Singletary, | Pacemaker | | 2017 | Visit | CARDIOLOGY [address] | [address] [facility] | reprogramming/check | | | | [address] [place], | 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 2. Non-critical Coronary artery disease involving mohegan coronary artery of mohegan heart [facility] angina pectoris: A. Normal exercise sestamibi stress test on 05/25/09. LVEF by [facility] ed SPECT was 53%. B. [...] cannot completely be ruled out . [facility] 12/25/13, shows non critical coronary [...] He is in a class I of [place] [employer] functiona l class. There is [...] of presyncope 05/28/10 [facility], thought to have vasovagal [...] reviewed and edited this note. Allyson Curtis, [employer] 06/27/2018 I, Sydni Singletary MD, personally performed the services described in this documentation, as scribed in my presence and it is both accurate and complete. Allyson Curtis, Med Ass t 06/27/2018 14:15 Electronically signed by: Sydni Singletary MD [facility] 06/27/2018 Portions of this chart may have been created with [employer] voice recognition software. Occasi onal wrong-word [...] | | | | | | [place] [address] | | | | | | [phone] | | | | | | | | +--------+ + + + + | 11/20/ | Implant | Cardiology | Sydni Singletary, | Remote Device | | 2019 | Monitor | | MD [address] [facility] | Interrogation | | | | | [place], | (Primary Dx); | | | | | [place] [address] | Presence of | | | | | [phone] | permanent cardiac | | | | [...] SYDNI | | | | | | ([id number]) on 06/27/2018 | | | | | [...]
--- OUTSIDE RECORDS SUMMARY | ~2019-10-04 | XMS | Encounter Summary ---
Demographics + + + | Address | [address] | | | [place] [address] | + + + | Home Phone [...] Team Providers + +------+ + | Care Ferry Operator Name | Role | Phone | [...] Provider Unknown | | | | | [place], [place] | [phone] | | | | | [address] | | | | | | [phone] | | | +--------+ + + + [...] + + + +---------+ + + | [place]-3 Fatty | CAPS, one capsule by | [...] | | | | | | [place] [address] | | | | | | [phone] | | | | | | | | +--------+ + + + + | 11/20/ | Implant | Cardiology | Daljit Singletary, | Remote Device | | 2019 | Monitor | | [address] [facility] | Interrogation | | | | | [place], | (Primary Dx); | | | | | [place] [address] | Presence of | | | | | [phone] | permanent cardiac | | | | [...]
--- OUTSIDE RECORDS SUMMARY | ~2019-10-04 | XMS | Encounter Summary ---
Demographics + + + | Address | [address] | | | [place] [address] | + + + | Home Phone [...] Team Providers + +------+ + | Care Ceramics Artist Name | Role | Phone | + +------+ + | Michael Amanda DO | PCP | | + +------+ + Encounter Details +--------+ + + + + | Date | Type | Department | Care Team | Description | +--------+ + + + + | 07/30/ | Abstract | [facility] | Michael Amanda, | | | 2013 | | [facility] | DO [address] | | | | | [address] | [place] | | | | | [place] | [address] | | | | | [address] | | | | | | [phone] | | | +--------+ + + + [...] | | | | | | [place] [address] | | | | | | [phone] | | | | | | | | +--------+ + + + + | 11/20/ | Implant | Cardiology | Daljit Singletary, | Remote Device | | 2019 | Monitor | | MD [address] [facility] | Interrogation | | | | | [address], | (Primary Dx); | | | | | [place] [address] | Presence of | | | | | [phone] | permanent cardiac | | | | [...] | [address] | [place] | [phone] | | [facility] | | [address] | | | - LABORATORY | | | | + + + + + | [facility] | [address] | [place] | | | [facility] | | [address] | | | - LABORATORY | | [...] | | | | | | | [place], | | | | | | External [...]
--- OUTSIDE RECORDS SUMMARY | ~2019-10-04 | XMS | Encounter Summary ---
Demographics + + + | Address | [address] | | | [place] [address] | + + + | Home Phone [...] + +------+ + | Care Vice President Fixed Income Name | Role | Phone | + +------+ + PCP | Unavailable | + +------+ + Encounter Details +--------+ + + + + | Date | Type | Department | Care Team | Description | +--------+ + + + + | 08/17/ | [facility] | [facility] | Evan Gandara MD | | | 2005 | Encounter | MED CTR LABORATORY | [address] [facility] | | | | | [address] | [place] | | | | | [place] | [address] | | | | | [address] | | | | | | [phone] | | | +--------+ + + + [...] | | | | | | [place] [address] | | | | | | [phone] | | | | | | | | +--------+ + + + + | 11/20/ | Implant | Cardiology | Daljit Singletary, | Remote Device | | 2019 | Monitor | | MD [address] | Interrogation | | | | | [address] [place], | (Primary Dx); | | | | | [place] [address] | Presence of | | | | | [phone] | permanent cardiac | | | | [...]
--- OUTSIDE RECORDS SUMMARY | ~2019-10-04 | XMS | Encounter Summary ---
Demographics + + + | Address | [address] | | | [place] [address] | + + + | Home Phone [...] Providers + +------+ + | Care Teleprinter Name | Role | Phone | + [...] 2019 | | GASTROENTEROLOGY | [address], [place] | | | | | [address] [place] | [address] [place], [place] | | | | | [address] [place], [place] | [address] | | | | | [address] | | | | | | [phone] | | | +--------+ + + + [...] | | | | | | [place] [address] | | | | | | [phone] | | | | | | | | +--------+ + + + + | 11/20/ | Implant | Cardiology | Daljit Singletary, | Remote Device | | 2019 | Monitor | | [address] [place] | Interrogation | | | | | [place], | (Primary Dx); | | | | | [place] [address] | Presence of | | | | | [phone] | permanent cardiac | | | | [...]
--- OUTSIDE RECORDS SUMMARY | ~2019-10-04 | XMS | Encounter Summary ---
Demographics + + + | Address | [address] | | | [place] [address] | + + + | Home Phone [...] Team Providers + +------+ + | Care Frameman Name | Role | Phone | + [...] + + | 06/26/ | [facility] | [facility] | Geri Angel, | Coronary artery | | 2015 | Visit | CARDIOLOGY [address] | BRAKE OPERATOR HEAVY DUTY [address] [place] | disease involving | | | | [place], | [facility], [place] | [place] coronary | | | | [place] [address] | [address] | artery without | | | | [phone] | | angina pectoris | | | [...] occur with exertion. He went to [facility] at the end of for his [...] it. He is planning to travel to [facility] in the ve ry near future for up to a month due to his [id number] having a significant stroke there MEDICAL, SURGICAL, [...] care Coronary artery disease involving [place] coronary artery without angina pectoris Cannabis [...] by mouth Daily. 30 tabl et 6 [facility] Natural [...] 3rd dose, call 911 25 tablet 11 [place]-3 Fatty Acids (SALMON OIL-1000 PO) CAPS, one [...] Daily. to reduce urinary frequenc y Lot #[id number], exp 07/2016 21 capsule 0 Specialty Vitamins [...] INTERROGATION REVIEWED BY: PARISA Velazquez DEVICE IDENTIFICATION: Crusher And Blender Operator: [employer]. Leads: Right atrium and right ventricle (dual [...] to go back in 3 days to [place] for an attempt of ablation under general [...] I-II of [place] Heart Ass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 T here are [...] this chart may have been created with [employer] voice recognition software. Occasi onal wrong-word or [...] | | | | | | [place], | | | | | | [place] [address] | | | | | | [phone] | | | | | | | | +--------+ + + + + | 11/20/ | Implant | Cardiology | Daljit Singletary, | Remote Device | | 2019 | Monitor | | [address] [facility] | Interrogation | | | | | [place], | (Primary Dx); | | | | | [place] [address] | Presence of | | | | | [phone] | permanent cardiac | | | | [...] PARISA Velazquez DEVICE IDENTIFICATION: | | | Crusher And Blender Operator: [employer]. Leads: Right atrium and right | | [...] | Coronary artery disease involving [place] coronary artery without angina pectoris - | | Primary | + + | SINUS BRADYCARDIA Sinoatrial node dysfunction | + + | Essential hypertension Unspecified essential hypertension | + + | Hyperlipidemia Other and unspecified hyperlipidemia | + + | Symptomatic PVCs Other premature beats | + + documented in this encounter
--- OUTSIDE RECORDS SUMMARY | ~2019-10-04 | XMS | Encounter Summary ---
Demographics + + + | Address | [address] | | | [place] [address] | + + + | Home Phone [...] Providers + +------+ + | Care Mold Shaker Name | Role | Phone | + +------+ + PCP | Unavailable | + +------+ + Encounter Details +--------+ + + + + | Date | Type | Department | Care Team | Description | +--------+ + + + + | 04/23/ | Hospital | [facility] | | | | 2007 - | Encounter | MED CTR MED ONC | | | | | | [address] | | | | 04/24/ | | [place] [address] | | | | 2007 | | [phone] | | | +--------+ + + + [...] | | | | | | [place] [address] | | | | | | [phone] | | | | | | | | +--------+ + + + + | 11/20/ | Implant | Cardiology | Daljit Singletary, | Remote Device | | 2018 | Monitor | | [address] [facility] | Interrogation | | | | | [place], | (Primary Dx); | | | | | [place] [address] | Presence of | | | | | [phone] | permanent cardiac | | | | [...]
--- OUTSIDE RECORDS SUMMARY | ~2019-10-04 | XMS | Encounter Summary ---
Demographics + + + | Address | [address] | | | [place] [address] | + + + | Home Phone [...] + +------+ + | Care Public Health Social Worker Name | Role | Phone [...] | 05/08/ | Telephone | [facility] | Emmanuel Daniel MD | Other | | 2019 | | GASTROENTEROLOGY | [address], [place] | | | | | [address] [place] | [address] [place], [place] | | | | | [address] [place], [place] | [address] | | | | | [address] | | | | | | [phone] | | | +--------+ + + + [...] W | | | | | | [place], | | | | | | [place] [address] | | | | | | [phone] | | | | | | | | +--------+ + + + + | 11/20/ | Implant | Cardiology | Daljit Singletary, | Remote Device | | 2018 | Monitor | | MD [address] [place] | Interrogation | | | | | [facility], | (Primary Dx); | | | | | [place] [address] | Presence of | | | | | [phone] | permanent cardiac | | | | [...]
--- OUTSIDE RECORDS SUMMARY | ~2019-10-04 | XMS | Encounter Summary ---
Demographics + + + | Address | [address] | | | [place] [address] | + + + | Home Phone [...] Team Providers + +------+ + | Care Axle And Frame Mechanic Name | Role | Phone | [...] | | | | Sinoatrial | Jose, NEGATIVE ASSEMBLER | [address] | | | | | node | [address] | [place], | | | | | dysfunction | [place] | [place] | | | | | (HCC) | [place], [place] | [address] | | | | | Coronary | [address] | Phone: | | | | | artery | Phone: | [phone] | | | | | disease | [phone] | Fax: | | | | | involving | Fax: | [phone] | | | | | [place] | [phone] | | | | | | coronary | | | | | | | artery of | | | | | | | [place] heart | | | | | | [...] | | | | | | Complete CT | | | | | | | ECHO HEART | | | | | | | XTHORACIC,[place] | | | | | | | MPLETE W | | | | | | | DOPPLER CT | | | | | | [...] | | | | Sinoatrial | Jose, NEGATIVE ASSEMBLER | [address] | | | | | node | [address] | [place], | | | | | dysfunction | [place] | [place] | | | | | ([facility]) | [place], [place] | [address] | | | | | Coronary | [address] | Phone: | | | | | artery | Phone: | [phone] | | | | | disease | [phone] | Fax: | | | | | involving | Fax: | [phone] | | | | | [place] | [phone] | | | | | | coronary | | | | | | | artery of | | | | | | | [place] heart | | | | | | [...] | | | | | | Complete CT | | | | | | | ECHO HEART | | | | | | | XTHORACIC,[place] | | | | | | | MPLETE W | | | | | | | DOPPLER CT | | | | | | [...] + + + + | 06/16/ | [facility] | Jose Angel, | Sinoatrial node | | 2016 | Encounter | MED CTR ECHO [address] | NEGATIVE ASSEMBLER [address] | dysfunction (HCC) | | | | [address] [place] | [place], [place] | with symptomatic | | | | [place] [address] | [address] | bradycardia; | | | | [phone] | | Coronary artery | | | | | Juvenal Blake, | disease involving | | | | | Technologist | [place] coronary | | | | | | artery of [place] | | | | | | heart [...] W | | | | | | [address], | | | | | | [place] [address] | | | | | | [phone] | | | | | | | | +--------+ + + + + | 11/20/ | Implant | Cardiology | Sydni Singletary, | Remote Device | | 2018 | Monitor | | [facility] | Interrogation | | | | | [place], | (Primary Dx); | | | | | [place] [address] | Presence of | | | | | [phone] | permanent cardiac | | | | [...] involving | | | | | | [place] coronary | | | | | | artery of [place] | | | | | | heart [...] Patient | [facility] | | [id number] Date of Study 06/16/2016 Number | - IMAGING | | Visit Number [id number] | | | Referring Physician JOSE ARMANDO JOSE Number Date of 1960 | | | Creel Hand LUIS FERNANDO DUARTE Age | | | 56 year(s) Interpreting | | | GURJIT TROY | | | Court Clerk SYDNI SINGLETARY, | | | Gender | | | Male Nurse Procedure Type of Study TTE | | | procedure: ECHO Complete. Procedure dateDate: 06/16/2016Start: 10:55 | | | AM Technical Quality: Adequate visualizationStudy Location: Echo | | | LabIndications: CAD [place] CORONARY ARTERY 414.01/ I25.10 and | | [...] BARRY Room Number SARAH | | Patient [id number] Date of Study 06/16/2016 Number Visit Number | | [id number] Referring Physician JOSE ARMANDO GARCIA Number | | Date of 1960 Creel Hand LUIS FERNANDO DUARTE Age | | 56 year(s) Interpreting GURJIT TROY | | Court Clerk SYDNI SINGLETARY | | Gender Male NurseProcedureType of Study TTE | | procedure: ECHO Complete.Procedure dateDate: 06/16/2016Start: 10:55 AMTechnical Quality: | | Adequate visualizationStudy Location: Echo LabIndications: CAD [place] CORONARY ARTERY | | 414.01/ I25.10 and [...] [address] | [place] | [phone] | | [facility] | | [address] | | | - IMAGING | | [...] + + | Coronary artery disease involving [place] coronary artery of [place] heart without | | angina pectoris | + + | Ascending thoracic aortic aneurysm (HCC) Thoracic aneurysm without mention of rupture | + + documented in this encounter"
--- OUTSIDE RECORDS SUMMARY | ~2019-10-04 | XMS | Encounter Summary ---
Demographics + + + | Address | [address] | | | [place] [address] | + + + | Home Phone [...] Providers + +------+ + | Care Salesperson Hosiery Name | Role | Phone | + +------+ + PCP | Unavailable | + +------+ + Encounter Details +--------+ + + + + | Date | Type | Department | Care Team | Description | +--------+ + + + + | 02/28/ | [facility] | [facility] | Geri Angel, | | | 2011 | Encounter | MED CTR XRAY [address] | ASSISTANT CLINICAL NURSE MANAGER [address] | | | | | [place] | [place] | | | | | [place] [address] | [address] | | | | | [phone] | | | +--------+ + + + [...] | | | | | | [place] [address] | | | | | | [phone] | | | | | | | | +--------+ + + + + | 11/20/ | Implant | Cardiology | Daljit Singletary, | Remote Device | | 2019 | Monitor | | [address] | Interrogation | | | | | [place], | (Primary Dx); | | | | | [place] [address] | Presence of | | | | | [phone] | permanent cardiac | | | | [...] | M[facility]ed With [facility] Diagnostic Imaging Department | [place] | | [address] [facility] | [facility] | | LEFT HEART CATHETERIZATION | [...] was taken to | | | Cardiac Oakes Machine Operator. He was prepared and draped in the usual fashion | | | under a sterile technique and local anesthesia, percutaneous access | | | was obtained using #6- Montenegrin sheath in the right femoral artery. | | | Right heart cath was not performed in this patient. Left | | | ventriculography was performed using #6-Montenegrin pigtail catheter. | | | The selective coronary angiography were then performed in several | | | sagittal and oblique projection using the 6-Montenegrin JL 4 and #6 Montenegrin | | | 3DRC diagnostic catheters. The [...] Transcribed | | | Date/Time: 02/29/2012 09:09 Flaker Operator: | | | <Electronically Signed by Daljit Singletary MD [facility] FASE> 02/29/12 | | | 1002 | | + + + + + | Procedure Note | + + | Kevin, Rad Conversion - 12/29/2013 5:04 PM [facility] | | Diagnostic Imaging Department | | [address] [place] | | | | | | [...] patient was taken to Cardiac | | Oakes Machine Operator. He was prepared and draped in the usual fashion under a sterile | | technique and local anesthesia, percutaneous access was obtained using #6- | | Montenegrin sheath in the right femoral artery. Right heart cath was not performed | | in this patient. Left ventriculography was performed using #6-Montenegrin pigtail | | catheter. The selective coronary angiography were then performed in several | | sagittal and oblique projection using the 6-Montenegrin JL 4 and #6 Montenegrin 3DRC | | diagnostic catheters. The patient [...] | Transcribed Date/Time: 02/29/2012 09:09 | | Flaker Operator: | | <Electronically Signed by Daljit Singletary MD [facility]DELINE> 02/29/12 1002 | + + + [...]
--- OUTSIDE RECORDS SUMMARY | ~2019-10-04 | XMS | Encounter Summary ---
Demographics + + + | Address | [address] | | | [place] [address] | + + + | Home Phone [...] Providers + +------+ + | Care Registered Land Surveyor Name | Role | Phone | + +------+ + PCP | Unavailable | + +------+ + Encounter Details +--------+ + + + + | Date | Type | Department | Care Team | Description | +--------+ + + + + | 01/17/ | [facility] | [facility] | Jonas Ramos, | | | 2009 | Encounter | MED CTR EMERGENCY | MD [address] | | | | | CENTER [address] | [facility] [place] | | | | | [place] | [place] [address] | | | | | [address] | [phone] | | | | | [phone] | | | +--------+ + + + [...] | | | | | | [place], | | | | | | [place] [address] | | | | | | [phone] | | | | | | | | +--------+ + + + + | 11/20/ | Implant | Cardiology | Daljit Singletary, | Remote Device | | 2019 | Monitor | | MD Sim [facility] | Interrogation | | | | | [place], | (Primary Dx); | | | | | [place] [address] | Presence of | | | | | [phone] | permanent cardiac | | | | [...]
--- OUTSIDE RECORDS SUMMARY | ~2019-10-04 | XMS | Encounter Summary ---
Demographics + + + | Address | [address] | | | [place] [address] | + + + | Home Phone [...] Team Providers + +------+ + | Care Manufacturers Representative Name | Role | Phone | [...] 2015 | | CARDIOLOGY [address] | ACUPUNCTURIST [address] | reprogramming/check | | | | [place], | [place], [place] | DO NOT DELETE | | | | [place] [address] | [address] | (Primary Dx); | | | | [phone] | | Pacemaker - | | | [...] W | | | | | | [place], | | | | | | [place] [address] | | | | | | [phone] | | | | | | | | +--------+ + + + + | 11/20/ | Implant | Cardiology | Daljit Singletary, | Remote Device | | 2018 | Monitor | | [address] | Interrogation | | | | | [place], | (Primary Dx); | | | | | [place] [address] | Presence of | | | | | [phone] | permanent cardiac | | | | [...] | | 2. Coronary artery disease involving [place] coronary artery of | | | [place] heart without angina pectoris I25.10 414.01 ECHO [...]
--- OUTSIDE RECORDS SUMMARY | ~2019-10-04 | XMS | Encounter Summary ---
Demographics + + + | Address | [address] | | | [place] [address] | + + + | Home Phone [...] + +------+ + | Care Press Tender Name | Role | Phone | + +------+ + | Kirk French MD | PCP | | + +------+ + Encounter Details +--------+ + + + + | Date | Type | Department | Care Team | Description | +--------+ + + + + | 01/25/ | Hospital | [facility] | Daljit Singletary, | Stable angina | | 2019 | Encounter | MED CTR CV INTRA OP | MD [address] | pectoris (HCC) | | | | [address] | [address] [place], | | | | | [place] | [place] [address] | | | | | [address] | [phone] | | | | | [phone] | | | +--------+ + + + [...] as a collagen plugis used on the [place]en[place] triny site to close the site, you [...] by your healthcare provider Date Last Reviewed: 09/22/201619999520-7439 [employer]. [address] [place] [address]. All righ ts reserved. This information is [...] + + + +---------+ + + | [place]-3 Fatty | CAPS, one capsule by | [...] W | | | | | | [place], | | | | | | [place] [address] | | | | | | [phone] | | | | | | | | +--------+ + + + + | 11/20/ | Implant | Cardiology | Daljit Singletary, | Remote Device | | 2018 | Monitor | | MD Sim [facility] | Interrogation | | | | | [place], | (Primary Dx); | | | | | [place] [address] | Presence of | | | | | [phone] | permanent cardiac | | | | [...] (1960) MEDICAL RECORD NUMBER: | | | [id number] OF PROCEDURE: 01/25/2019 ANTISQUEAK WORKER: Daljit | | | MD Gemini [...] Sanchez, (1960) | | OF PROCEDURE: 01/25/2019PRIMARY GAS TRUCK DRIVER: Daljit Singletary MD PROCEDURES | | [...] | Aggressive medical management. | | at 9:33[facility] PROVIDER:Kirk French MDFor [...]
--- OUTSIDE RECORDS SUMMARY | ~2019-10-04 | XMS | Encounter Summary ---
Demographics + + + | Address | [address] | | | [place] [address] | + + + | Home Phone [...] Team Providers + +------+ + | Care Inlayer Silver Name | Role | Phone | + [...] 2019 | | GASTROENTEROLOGY | [address], [place] | | | | | [address] [place] | [address] [place], [place] | | | | | [address] [place], [place] | [address] | | | | | [address] | | | | | | [phone] | | | +--------+ + + + [...] W | | | | | | [address] [place], | | | | | | [place] [address] | | | | | | [phone] | | | | | | | | +--------+ + + + + | 11/20/ | Implant | Cardiology | Daljit Singletary, | Remote Device | | 2018 | Monitor | | [address] | Interrogation | | | | | [place], | (Primary Dx); | | | | | [place] [address] | Presence of | | | | | [phone] | permanent cardiac | | | | [...]
--- OUTSIDE RECORDS SUMMARY | ~2019-10-04 | XMS | Encounter Summary ---
Demographics + + + | Address | [address] | | | [place] [address] | + + + | Home Phone [...] Team Providers + +------+ + | Care Exit Booth Agent Name | Role | Phone | [...] | Telephone | [facility] | Daljit Singletary, | Other (issues with | | 2017 | | CARDIOLOGY [address] | MD [address] | low blood pressure | | | | [place], | [place], | and dizziness) | | | | [place] [address] | [place] [address] | | | | | [phone] | [phone] | | | | | | | [...] | | | | | | [place] [address] | | | | | | [phone] | | | | | | | | +--------+ + + + + | 11/20/ | Implant | Cardiology | Daljit Singletary, | Remote Device | | 2018 | Monitor | | [address] | Interrogation | | | | | [place], | (Primary Dx); | | | | | [place] [address] | Presence of | | | | | [phone] | permanent cardiac | | | | [...]
--- OUTSIDE RECORDS SUMMARY | ~2019-10-04 | XMS | Encounter Summary ---
Demographics + + + | Address | [address] | | | [place] [address] | + + + | Home Phone [...] Providers + +------+ + | Care Optical Manager Name | Role | Phone | + +------+ + PCP | Unavailable | + +------+ + Encounter Details +--------+ + + + + | Date | Type | Department | Care Team | Description | +--------+ + + + + | 08/26/ | Hospital | [facility] | | | | 2009 | Encounter | MED CTR LABORATORY | | | | | | [address] | | | | | | [place] | | | | | | [address] | | | | | | [phone] | | | +--------+ + + + [...] | | | | | | [place] [address] | | | | | | [phone] | | | | | | | | +--------+ + + + + | 11/20/ | Implant | Cardiology | Daljit Singletary, | Remote Device | | 2018 | Monitor | | [address] [facility] | Interrogation | | | | | [place], | (Primary Dx); | | | | | [place] [address] | Presence of | | | | | [phone] | permanent cardiac | | | | [...]
--- OUTSIDE RECORDS SUMMARY | ~2019-10-04 | XMS | Encounter Summary ---
Demographics + + + | Address | [address] | | | [place] [address] | + + + | Home Phone [...] Providers + +------+ + | Care Intelligence Consultant Name | Role | Phone [...] | 06/22/ | Telephone | [facility] | Vasiliy Michael Kelsey, | Eye Problem | | 2012 | | [facility] [place] | DO [address] | | | | | [address] | [place] | | | | | [place] | [address] | | | | | [address] | | | | | | [phone] | | | +--------+ + + + [...] | | | | | | [place], | | | | | | [place] [address] | | | | | | [phone] | | | | | | | | +--------+ + + + + | 11/20/ | Implant | Cardiology | Daljit Singletary, | Remote Device | | 2018 | Monitor | | [facility] | Interrogation | | | | | [place], | (Primary Dx); | | | | | [place] [address] | Presence of | | | | | [phone] | permanent cardiac | | | | [...]
--- OUTSIDE RECORDS SUMMARY | ~2019-10-04 | XMS | Encounter Summary ---
Demographics + + + | Address | [address] | | | [place] [address] | + + + | Home Phone [...] Providers + +------+ + | Care Speech Pathology Supervisor Name | Role | Phone | + +------+ + PCP | Unavailable | + +------+ + Encounter Details +--------+ + + + + | Date | Type | Department | Care Team | Description | +--------+ + + + + | 06/25/ | [facility] | [facility] | Daljit Singletary, | | | 2008 | Encounter | MED CTR XRAY [address] | [address] | | | | | [place] | [place], | | | | | [place] [address] | [place] [address] | | | | | [phone] | [phone] | | | | | | | [...] | | | | | | [place] [address] | | | | | | [phone] | | | | | | | | +--------+ + + + + | 11/20/ | Implant | Cardiology | Daljit Singletary, | Remote Device | | 2019 | Monitor | | MD [address] | Interrogation | | | | | [place], | (Primary Dx); | | | | | [place] [address] | Presence of | | | | | [phone] | permanent cardiac | | | | [...]
--- OUTSIDE RECORDS SUMMARY | ~2019-10-04 | XMS | Encounter Summary ---
Demographics + + + | Address | [address] | | | [place] [address] | + + + | Home Phone [...] Providers + +------+ + | Care Public Policy Manager Name | Role | Phone | + +------+ + | Michael Amanda DO | PCP | | + +------+ + Encounter Details +--------+ + + + + | Date | Type | Department | Care Team | Description | +--------+ + + + + | 05/11/ | Hospital | [facility] | Conversion | Lumbago; | | 2013 | Encounter | MEDICAL CENTER XRAY | Transaction, | Postlaminectomy | | | | [address] | Provider Unknown | syndrome, cervical | | | | [place], [place] | | region; Cervicalgia | | | | [address] | (Fax) | | | | | [phone] | | | +--------+ + + + [...] + + + +---------+ + + | [place]-3 Fatty | CAPS, one capsule by | [...] 1147 Date of Service: 05/11/141145 Status: Signed Electroplating Technician: Christine Mcgraw Report called to Brittany [...] | | | | | | [place], | | | | | | [place] [address] | | | | | | [phone] | | | | | | | | +--------+ + + + + | 11/20/ | Implant | Cardiology | Daljit Singletary, | Remote Device | | 2018 | Monitor | | [address] | Interrogation | | | | | [place], | (Primary Dx); | | | | | [place] [address] | Presence of | | | | | [phone] | permanent cardiac | | | | [...]
--- OUTSIDE RECORDS SUMMARY | ~2019-10-04 | XMS | Encounter Summary ---
Demographics + + + | Address | [address] | | | [place] [address] | + + + | Home Phone [...] Team Providers + +------+ + | Care Switcher Name | Role | Phone | + [...] 2019 | | GASTROENTEROLOGY | [address] [place] | Syndrome | | | | [address] [place] | [address] [place], [place] | | | | | [address] [place], [place] | [address] | | | | | [address] | | | | | | [phone] | | | +--------+ + + + [...] | | | | | | [place] [address] | | | | | | [phone] | | | | | | | | +--------+ + + + + | 11/20/ | Implant | Cardiology | Daljit Singletary, | Remote Device | | 2018 | Monitor | | MD [address] | Interrogation | | | | | [place], | (Primary Dx); | | | | | [place] [address] | Presence of | | | | | [phone] | permanent cardiac | | | | [...]
--- OUTSIDE RECORDS SUMMARY | ~2019-10-04 | XMS | Encounter Summary ---
Demographics + + + | Address | [address] | | | [place] [address] | + + + | Home Phone [...] Providers + +------+ + | Care Customs Compliance Analyst Name | Role | Phone | [...] Refill | | 2013 | | [facility] [place] | DO [address] | | | | | [address] | [place] | | | | | [place] | [address] | | | | | [address] | | | | | | [phone] | | | +--------+--------+ + + + [...] W | | | | | | [place], | | | | | | [place] [address] | | | | | | [phone] | | | | | | | | +--------+ + + + + | 11/20/ | Implant | Cardiology | Daljit Singletary, | Remote Device | | 2018 | Monitor | | [facility] | Interrogation | | | | | [place], | (Primary Dx); | | | | | [place] [address] | Presence of | | | | | [phone] | permanent cardiac | | | | [...]
--- OUTSIDE RECORDS SUMMARY | ~2019-10-04 | XMS | Encounter Summary ---
Demographics + + + | Address | [address] | | | [place] [address] | + + + | Home Phone [...] Providers + +------+ + | Care Syrup Shed Supervisor Name | Role | Phone | [...] + + | 06/04/ | Hospital | [facility] | Saria[place], | Cervical spinal | | 2016 | Encounter | MED CTR XRAY [address] | [place], [address] | stenosis | | | | [place] | [address] | | | | | [place] [address] | [place] [address] | | | | | [phone] | [phone] | | | | | | | [...] + + +---------+ + + | [place]-3 Fatty | CAPS, one capsule by | [...] | | | | | | [place] [address] | | | | | | [phone] | | | | | | | | +--------+ + + + + | 11/20/ | Implant | Cardiology | Daljit Singletary, | Remote Device | | 2019 | Monitor | | MD [facility] | Interrogation | | | | | [place], | (Primary Dx); | | | | | [place] [address] | Presence of | | | | | [phone] | permanent cardiac | | | | [...]
--- OUTSIDE RECORDS SUMMARY | ~2019-10-04 | XMS | Encounter Summary ---
Demographics + + + | Address | [address] | | | [place] [address] | + + + | Home Phone [...] Providers + +------+ + | Care Cotton Weigher Operator Name | Role | Phone | + +------+ + PCP | Unavailable | + +------+ + Encounter Details +--------+ + + + + | Date | Type | Department | Care Team | Description | +--------+ + + + + | 08/17/ | [facility] | [facility] | Evan Gandara MD | | | 2005 | Encounter | MED CTR LABORATORY | [address] [facility] | | | | | [address] | [place] | | | | | [place] | [address] | | | | | [address] | | | | | | [phone] | | | +--------+ + + + [...] | | | | | | [place] [address] | | | | | | [phone] | | | | | | | | +--------+ + + + + | 11/20/ | Implant | Cardiology | Daljit Singletary, | Remote Device | | 2019 | Monitor | | MD [address] | Interrogation | | | | | [place], | (Primary Dx); | | | | | [place] [address] | Presence of | | | | | [phone] | permanent cardiac | | | | [...]
--- OUTSIDE RECORDS SUMMARY | ~2019-10-04 | XMS | Encounter Summary ---
Demographics + + + | Address | [address] | | | [place] [address] | + + + | Home Phone [...] + +------+ + | Care Talent Acquisition Project Manager Name | Role | Phone | + +------+ + | Michael Amanda DO | PCP | | + +------+ + Encounter Details +--------+ + + + + | Date | Type | Department | Care Team | Description | +--------+ + + + + | 02/27/ | Hospital | [facility] | Shelly Carter DO | Chest pain; | | 2013 - | Encounter | [facility] | [address] | Pacemaker; | | | | CLINICAL DECISION | [place] [address] | Mild dehydration | | 02/28/ | | [address] [facility] | [phone] | | | 2013 | | [place], [place] | | | | | | [address] | | | | | | [phone] | | | +--------+ + + + [...] 2252 Date of Service: 02/28/141044 Status: Addendum Surveying Crew Stake Runner: Dev Montano MD (Physician) Related Notes: Original Note by Dev Montano MD (Physician) filed at 02/28/14 1107 Patient ID: Pina Gay [id number] y.o. 1960 Admit date: 02/27/2014 Discharge [...] - 99 mg/dL Final Testing performed at [address] [address] BUN Date Value Range Status 02/28/2014 15 8 - 25 mg/dL Final Testing performed at [address] [address] CREATININE Date Value Range Status 02/28/2014 0.74 0.70 - 1.30 mg/dL Final Testing performed at [address] [address] BUN/CREAT Date Value Range Status 02/28/2014 20 Final Testing performed at [address] [address] TOTAL PROTEIN Date Value Range Status 02/28/2014 6.1* 6.3 - 8.2 g/dL Final Testing performed at [address] [address] GLOBULIN Date Value Range Status 02/28/2014 2.1 1.3 - 4.9 g/dL Final Testing performed at [address] [address] TBIL Date Value Range Status 02/28/2014 1.4 0.1 - 1.5 mg/dL Final Testing performed at [address] [address] ALT Date Value Range Status 02/28/2014 27 10 - 65 U/L Final Testing performed at [address] [address] AST Date Value Range Status 02/28/2014 31 10 - 45 U/L Final Testing performed at [address] [address] SODIUM Date Value Range Status 02/28/2014 138 135 - 143 mmol/L Final Testing performed at [facility], [address] [place] [address] POTASSIUM Date Value Range Status 02/28/2014 3.4* 3.5 - 4.9 mmol/L Final Testing performed at [facility], [address] [place] [address] CHLORIDE Date Value Range Status 02/28/2014 108 99 - 109 mmol/L Final Testing performed at [address] [address] CO2 Date Value Range Status 02/28/2014 21* 23 - 32 mmol/L Final Testing performed at [facility], [address] [place] [address] ANION GAP AGAP Date Value Range Status 02/28/2014 12 5 - 20 mmol/L Final Testing performed at [facility], [address] [place] [address] Xr Chest Pa And Lateral 02/27/2014 PINA [...] 3-D reconstructi ons were performed using the [employer] 3-D software and sent to PACS. Oral Contrast: None I V contrast: 100 mL IsoVue 370 COMPARISON: None. FINDINGS: CHEST: The bell neck hammerer view shows a p acemaker via left [...] catheterization recently done by Dr. Singletary in [place] in December 2013 at [facility] which showed minimal occlusive disease. One artery was 25% and another was 15%, per patient. I requested official cardiac catheterization report from [place] and still waiting for it to come. The patient did not have any chest pain at all. When I asked sanrda moreno further questions, he told me that [...] are the prescriptions that you need to pickler helper. You may get these medications from any pharmacy. amLODIPine 5 MG tablet pantoprazole 40 MG tablet Activity: activity as tolerated Diet: cardiac diet Wound Care: not applicable There are no Patient Instructions on file for this visit. Per Pt None Chaka Ortiz MD [address] [facility] [id number] In 1 week Ariel Pulido MD [address] [facility] [phone] In 1 week Daljit Singletary MD [address] [facility] [facility] [address] [facility] [address] In 1 week Signed: DEV MONTANO 02/28/2014 10:45 AM Addendum:ADDENDUM I just received a cardiac catheterization report from [facility], [place], which was done on December 25, 2013. [...] + + + +---------+ + + | Lima-3 Fatty | CAPS, one capsule by | [...] 02/28/141211 Date of Service: 02/28/141210 Status: Signed Surveying Crew Stake Runner: Bijal Sosa RN (Registered Nurse) Discharge instructions [...] 02/28/1411 Date of Service: 02/28/1411 Status: Signed Surveying Crew Stake Runner: Mary Wetzel RPH (Pharmacist) Clinical Pharmacy Note: [...] | | | | | | [place] [address] | | | | | | [phone] | | | | | | | | +--------+ + + + + | 11/20/ | Implant | Cardiology | Daljit Singletary, | Remote Device | | 2018 | Monitor | | MD Sim Venus Shorty | Interrogation | | | | | [facility], | (Primary Dx); | | | | | [place] [address] | Presence of | | | | | [phone] | permanent cardiac | | | | [...] EXTERNAL | | | | performed at [facility];[address] | | LAB | | | | [address];[place], [place] | | | | | | [address] | | | | + + + [...] | | | | | performed at [facility];[address] | | | | | | [facility];[place], [place] | | | | | | [address] [...] | | | | | [place] [address] | | | | + + + + + + | RED CELL | 4.68Comment: Testing | 4.20 - 5.70 | EXTERNAL | | | COUNT | performed at [facility], [address] | M/uL | LAB | | | | [address], | | | | | | [place] [address] | | | | + + + + + + | Hgb | 15.3Comment: Testing | 13.2 - 17.0 | EXTERNAL | | | | performed at [facility], [address] | g/dL | LAB | | | | [address], | | | | | | [place] [address] | | | | + + + + + + | Hematocrit, | 44.2Comment: Testing | 39.0 - 50.0 % | EXTERNAL | | | POC | performed at [facility], [address] | | LAB | | | | [address], | | | | | | [place] [address] | | | | + + + + + + | MCV | 94.5Comment: Testing | 80.0 - 100.0 fl | EXTERNAL | | | | performed at [facility], [address] | | LAB | | | | [address], | | | | | | [place] [address] | | | | + + + + + + | MCH | 32.6Comment: Testing | 27.0 - 34.0 pg | EXTERNAL | | | | performed at [facility], [address] | | LAB | | | | [address], | | | | | | [place] [address] | | | | + + + + + + | MCHC | 34.5Comment: Testing | 32.0 - 35.5 | EXTERNAL | | | | performed at [facility], [address] | g/dL | LAB | | | | [address], | | | | | | [place] [address] | | | | + + + + + + | RDW-CV | 45.5Comment: Testing | 37 - 53 fl | EXTERNAL | | | | performed at [facility], [address] | | LAB | | | | [address], | | | | | | [place] [address] | | | | + + + + + + | Platelet | 156Comment: Testing | 150 - 400 K/uL | EXTERNAL | | | Count | performed at [facility], [address] | | LAB | | | Plasma | [address], | | | | | | [place] [address] | | | | + + + + + + | MPV | 8.8Comment: Testing | fl | EXTERNAL | | | | performed at [facility], [address] | | LAB | | | | [address], | | | | | | [place] [address] | | | | + + + + + + | Differentia | AUTOMATEDComment: | | EXTERNAL | | | l Type | Testing performed at | | LAB | | | | [facility], [address] | | | | | | [place] | | | | | | [address] | | | | + + + + + + | % Segmented | 57.7Comment: Testing | % | EXTERNAL | | | | performed at [facility], [address] | | LAB | | | Neutrophils | [address], | | | | | | [place] [address] | | | | + + + + + + | % | 31.8Comment: Testing | % | EXTERNAL | | | Lymphocytes | performed at [facility], [address] | | LAB | | | | [address], | | | | | | [place] [address] | | | | + + + + + + | % Monocytes | 9.2Comment: Testing | % | EXTERNAL | | | | performed at [facility], [address] | | LAB | | | | [address], | | | | | | [place] [address] | | | | + + + + + + | % | 0.9Comment: Testing | % | EXTERNAL | | | Eosinophils | performed at [facility], [address] | | LAB | | | | [address], | | | | | | [place] [address] | | | | + + + + + + | % Basophils | 0.4Comment: Testing | % | EXTERNAL | | | | performed at [facility], [address] | | LAB | | | | [address], | | | | | | [place] [address] | | | | + + + + + + | Absolute | 3.9Comment: Testing | 1.9 - 7.4 K/uL | EXTERNAL | | | Segmented | performed at [facility], [address] | | LAB | | | Neutrophils | [address], | | | | | | [place] [address] | | | | + + + + + + | Absolute | 2.1Comment: Testing | 1.0 - 3.9 K/uL | EXTERNAL | | | Lymphocytes | performed at [facility], [address] | | LAB | | | | [address], | | | | | | [place] [address] | | | | + + + + + + | Absolute | 0.6Comment: Testing | 0 - 0.8 K/uL | EXTERNAL | | | Monocytes | performed at [facility], [address] | | LAB | | | | [address], | | | | | | [place] [address] | | | | + + + + + + | Absolute | 0.1Comment: Testing | 0 - 0.5 K/uL | EXTERNAL | | | Eosinophils | performed at [facility], [address] | | LAB | | | | [address], | | | | | | [place] [address] | | | | + + + + + + | Absolute | 0.0Comment: Testing | 0 - 0.1 K/uL | EXTERNAL | | | Basophils | performed at [facility], [address] | | LAB | | | | [address], | | | | | | [place] [address] | | | | + + + [...] | | | | | [place] [address] | | | | + + + [...] EXTERNAL | | | | performed at [facility], [address] | | LAB | | | | [address], | | | | | | [place] [address] | | | | + + + [...] EXTERNAL | | | | performed at [facility];[address] | | LAB | | | | [address];[place] | | | | | | [address] | | | | + + + [...] | | | | | [place] [address] | | | | + + + + + + | Triglycerid | 37Comment: Testing | mg/dL | EXTERNAL | | | es | performed at [facility], [address] | | LAB | | | | [address], | | | | | | [place] [address] | | | | + + + + + + | HDL | 35 (L)Comment: Testing | mg/dL | EXTERNAL | | | | performed at [facility], [address] | | LAB | | | | [address], | | | | | | [place] [address] | | | | + + + + + + | LDL | 67Comment: Testing | mg/dL | EXTERNAL | | | Cholesterol | performed at [facility], [address] | | LAB | | | , | [address], | | | | | Calculated, | [place] [address] | | | | | External | [...] | | | | | [place] [address] | | | | + + + + + + | K | 3.4 (L)Comment: Testing | 3.5 - 4.9 | EXTERNAL | | | | performed at [facility], [address] | mmol/L | LAB | | | | [address], | | | | | | [place] [address] | | | | + + + + + + | Cl | 108Comment: Testing | 99 - 109 mmol/L | EXTERNAL | | | | performed at [facility], [address] | | LAB | | | | [address], | | | | | | [place] [address] | | | | + + + + + + | CO2 | 21 (L)Comment: Testing | 23 - 32 mmol/L | EXTERNAL | | | | performed at [facility], [address] | | LAB | | | | [address], | | | | | | [place] [address] | | | | + + + + + + | Anion Gap | 12Comment: Testing | 5 - 20 mmol/L | EXTERNAL | | | | performed at [facility], [address] | | LAB | | | | [address], | | | | | | [place] [address] | | | | + + + + + + | Glucose, | 107 (H)Comment: Testing | 65 - 99 mg/dL | EXTERNAL | | | Fasting | performed at [facility], [address] | | LAB | | | | [address], | | | | | | [place] [address] | | | | + + + + + + | BUN | 15Comment: Testing | 8 - 25 mg/dL | EXTERNAL | | | | performed at [facility], [address] | | LAB | | | | [address], | | | | | | [place] [address] | | | | + + + + + + | Creatinine | 0.74Comment: Testing | 0.70 - 1.30 | EXTERNAL | | | | performed at [facility], [address] | mg/dL | LAB | | | | [address], | | | | | | [place] [address] | | | | + + + + + + | BUN/Creatin | 20Comment: Testing | | EXTERNAL | | | ine Ratio | performed at [facility], [address] | | LAB | | | | [address], | | | | | | [place] [address] | | | | + + + + + + | Calcium | 8.9Comment: Testing | 8.5 - 10.2 | EXTERNAL | | | | performed at [facility], [address] | mg/dL | LAB | | | | [address], | | | | | | [place] [address] | | | | + + + + + + | Protein, | 6.1 (L)Comment: Testing | 6.3 - 8.2 g/dL | EXTERNAL | | | Total | performed at [facility], [address] | | LAB | | | | [address], | | | | | | [place] [address] | | | | + + + + + + | Albumin | 4.0Comment: Testing | 3.6 - 5.0 g/dL | EXTERNAL | | | | performed at [facility], [address] | | LAB | | | [address], | | | | | | [place] [address] | | | | + + + + + + | Globulin | 2.1Comment: Testing | 1.3 - 4.9 g/dL | EXTERNAL | | | | performed at [facility], [address] | | LAB | | | | [address], | | | | | | [place] [address] | | | | + + + + + + | A/G Ratio | 1.9Comment: Testing | 1.0 - 2.4 | EXTERNAL | | | | performed at [facility], [address] | | LAB | | | | [address], | | | | | | [place] [address] | | | | + + + + + + | Bilirubin | 1.4Comment: Testing | 0.1 - 1.5 mg/dL | EXTERNAL | | | Total | performed at [facility], [address] | | LAB | | | | [address], | | | | | | [place] [address] | | | | + + + + + + | ALP, | 46Comment: Testing | 35 - 115 U/L | EXTERNAL | | | External | performed at [facility], [address] | | LAB | | | | [address], | | | | | | [place] [address] | | | | + + + + + + | AST | 31Comment: Testing | 10 - 45 U/L | EXTERNAL | | | | performed at [facility], [address] | | LAB | | | | [address], | | | | | | [place] [address] | | | | + + + + + + | ALT | 27Comment: Testing | 10 - 65 U/L | EXTERNAL | | | | performed at [facility], [address] | | LAB | | | | [address], | | | | | | [place] [address] | | | | + + + [...] | | | | | | at [facility], [address] | | | | | | [address], | | | | | | [place] [address] | | | | + + + [...] EXTERNAL | | | | performed at [facility];[address] | | LAB | | | | [address];[place], [place] | | | | | | [address] | | | | + + + [...] | | | | | performed at [facility] | | | | | | [facility];[place], [place] | | | | | | [address] | | | | + + + [...] EXTERNAL | | | | performed at [facility];[address] | | LAB | | | | [facility];[place], [place] | | | | | | [address] | | | | + + + [...] were | | | performed using the [employer] 3-D software and sent to PACS. Oral | | | Contrast: None IV contrast: 100 mL IsoVue 370 COMPARISON: None. | | | FINDINGS: CHEST: The bell neck hammerer view shows a pacemaker via left | [...] reconstructions were performed | | using the [employer] 3[employer] software and sent to PACS. Oral Contrast: NoneIV contrast: 100 | | mL IsoVue 370 COMPARISON:None. FINDINGS: CHEST: The bell neck hammerer view shows a pacemaker via | | [...] EXTERNAL | | | | performed at [facility];[address] | | LAB | | | | [address];[place] | | | | | | [address] | | | | + + + + + -+ | RED CELL | 5.19Comment: Testing | 4.20 - 5.70 | EXTERNAL | | | COUNT | performed at [facility];[address] | M/uL | LAB | | | | [address];[place] | | | | | | [address] | | | | + + + + + -+ | Hgb | 16.8Comment: Testing | 13.2 - 17.0 | EXTERNAL | | | | performed at [facility];[address] | g/dL | LAB | | | | [address];[place] | | | | | | [address] | | | | + + + + + -+ | Hematocrit, | 49.5Comment: Testing | 39.0 - 50.0 % | EXTERNAL | | | POC | performed at [facility];[address] | | LAB | | | | [address];[place] | | | | | | [address] | | | | + + + + + -+ | MCV | 95.4Comment: Testing | 80.0 - 100.0 fl | EXTERNAL | | | | performed at [facility];[address] | | LAB | | | | [address];[place] | | | | | | [address] | | | | + + + + + -+ | MCH | 32.4Comment: Testing | 27.0 - 34.0 pg | EXTERNAL | | | | performed at [facility];[address] | | LAB | | | | [address];[place] | | | | | | [address] | | | | + + + + + -+ | MCHC | 34.0Comment: Testing | 32.0 - 35.5 | EXTERNAL | | | | performed at [facility];[address] | g/dL | LAB | | | | [address];[place] | | | | | | [address] | | | | + + + + + -+ | RDW-CV | 46.8Comment: Testing | 37 - 53 fl | EXTERNAL | | | | performed at [facility];[address] | | LAB | | | | [address];[place] | | | | | | [address] | | | | + + + + + -+ | Platelet | 179Comment: Testing | 150 - 400 K/uL | EXTERNAL | | | Count | performed at [facility];[address] | | LAB | | | Plasma | [address];[place] | | | | | | [address] | | | | + + + + + -+ | MPV | 8.6Comment: Testing | fl | EXTERNAL | | | | performed at [facility];[address] | | LAB | | | | [address];[place] | | | | | | [address] | | | | + + + + + -+ | Differentia | AUTOMATEDComment: | | EXTERNAL | | | l Type | Testing performed at | | LAB | | | | [facility];[address];[place] [address] | | | | + + + + + -+ | % Segmented | 62.4Comment: Testing | % | EXTERNAL | | | | performed at [facility];[address] | | LAB | | | Neutrophils | [address];[place] | | | | | | [address] | | | | + + + + + -+ | % | 26.3Comment: Testing | % | EXTERNAL | | | Lymphocytes | performed at [facility];[address] | | LAB | | | | [address];[place] | | | | | | [address] | | | | + + + + + -+ | % Monocytes | 10.3Comment: Testing | % | EXTERNAL | | | | performed at [facility];[address] | | LAB | | | | [address];[place] | | | | | | [address] | | | | + + + + + -+ | % | 0.5Comment: Testing | % | EXTERNAL | | | Eosinophils | performed at [facility];[address] | | LAB | | | | [address];[place] | | | | | | [address] | | | | + + + + + -+ | % Basophils | 0.5Comment: Testing | % | EXTERNAL | | | | performed at [facility];[address] | | LAB | | | | [address];[place] | | | | | | [address] | | | | + + + + + -+ | Absolute | 6.3Comment: Testing | 1.9 - 7.4 K/uL | EXTERNAL | | | Segmented | performed at [facility];[address] | | LAB | | | Neutrophils | [address];[place] | | | | | | [address] | | | | + + + + + -+ | Absolute | 2.7Comment: Testing | 1.0 - 3.9 K/uL | EXTERNAL | | | Lymphocytes | performed at [facility];[address] | | LAB | | | | [address];[place] | | | | | | [address] | | | | + + + + + -+ | Absolute | 1.0 (H)Comment: Testing | 0 - 0.8 K/uL | EXTERNAL | | | Monocytes | performed at [facility];[address] | | LAB | | | | [address];[place] | | | | | | [address] | | | | + + + + + -+ | Absolute | 0.0Comment: Testing | 0 - 0.5 K/uL | EXTERNAL | | | Eosinophils | performed at [facility];[address] | | LAB | | | | [address];[place] | | | | | | [address] | | | | + + + + + -+ | Absolute | 0.1Comment: Testing | 0 - 0.1 K/uL | EXTERNAL | | | Basophils | performed at [facility];[address] | | LAB | | | | [address];[place] | | | | | | [address] | | | | + + + + + -+ | Na | 139Comment: Testing | 135 - 143 | EXTERNAL | | | | performed at [facility];[address] | mmol/L | LAB | | | | [address];[place] | | | | | | [address] | | | | + + + + + -+ | K | 3.4 (L)Comment: Testing | 3.5 - 4.9 | EXTERNAL | | | | performed at [facility];[address] | mmol/L | LAB | | | | [address];[place] | | | | | | [address] | | | | + + + + + -+ | Cl | 108Comment: Testing | 99 - 109 mmol/L | EXTERNAL | | | | performed at [facility];[address] | | LAB | | | | [address];[place] | | | | | | [address] | | | | + + + + + -+ | CO2 | 21 (L)Comment: Testing | 23 - 32 mmol/L | EXTERNAL | | | | performed at [facility];[address] | | LAB | | | | [address];[place] | | | | | | [address] | | | | + + + + + -+ | Anion Gap | 14Comment: Testing | 5 - 20 mmol/L | EXTERNAL | | | | performed at [facility];[address] | | LAB | | | | [address];[place] | | | | | | [address] | | | | + + + + + -+ | Glucose, | 124 (H)Comment: Testing | 65 - 99 mg/dL | EXTERNAL | | | Fasting | performed at [facility];[address] | | LAB | | | | [address];[place] | | | | | | [address] | | | | + + + + + -+ | BUN | 20Comment: Testing | 8 - 25 mg/dL | EXTERNAL | | | | performed at [facility];[address] | | LAB | | | | [address];[place] | | | | | | [address] | | | | + + + + + -+ | Creatinine | 0.97Comment: Testing | 0.70 - 1.30 | EXTERNAL | | | | performed at [facility];[address] | mg/dL | LAB | | | | [address];[place] | | | | | | [address] | | | | + + + + + -+ | BUN/Creatin | 21Comment: Testing | | EXTERNAL | | | ine Ratio | performed at [facility];[address] | | LAB | | | | [address];[place] | | | | | | [address] | | | | + + + + + -+ | Calcium | 8.7Comment: Testing | 8.5 - 10.2 | EXTERNAL | | | | performed at [facility];[address] | mg/dL | LAB | | | | [address];[place] | | | | | | [address] | | | | + + + + + -+ | Protein, | 7.6Comment: Testing | 6.3 - 8.2 g/dL | EXTERNAL | | | Total | performed at [facility];[address] | | LAB | | | | [address];[place] | | | | | | [address] | | | | + + + + + -+ | Albumin | 4.2Comment: Testing | 3.6 - 5.0 g/dL | EXTERNAL | | | | performed at [facility];[address] | | LAB | | | | [address];[place] | | | | | | [address] | | | | + + + + + -+ | Globulin | 3.4Comment: Testing | 1.3 - 4.9 g/dL | EXTERNAL | | | | performed at [facility];[address] | | LAB | | | | [address];[place] | | | | | | [address] | | | | + + + + + -+ | A/G Ratio | 1.2Comment: Testing | 1.0 - 2.4 | EXTERNAL | | | | performed at [facility];[address] | | LAB | | | | [address];[place] | | | | | | [address] | | | | + + + + + -+ | Bilirubin | 1.1Comment: Testing | 0.1 - 1.5 mg/dL | EXTERNAL | | | Total | performed at [facility];[address] | | LAB | | | | [address];[place] | | | | | | [address] | | | | + + + + + -+ | ALP, | 77Comment: Testing | 35 - 115 U/L | EXTERNAL | | | External | performed at [facility];[address] | | LAB | | | | [address];[place] | | | | | | [address] | | | | + + + + + -+ | AST | 35Comment: Testing | 10 - 45 U/L | EXTERNAL | | | | performed at [facility];[address] | | LAB | | | | [address];[place] | | | | | | [address] | | | | + + + + + -+ | ALT | 43Comment: Testing | 10 - 65 U/L | EXTERNAL | | | | performed at [facility];[address] | | LAB | | | | [address];[place] | | | | | | [address] | | | | + + + [...] | | | | | | at [facility];[address] | | | | | | [address];[place] [id number] | | | | + + + + + -+ | CK, Total | 510 (H)Comment: Testing | 55 - 400 U/L | EXTERNAL | | | | performed at [facility];[address] | | LAB | | | | [address];[place] | | | | | | [address] | | | | + + + [...] | | | | | performed at [facility];[address] | | | | | | [address];[place] | | | | | | [address] | | | | + + + + + -+ | aPTT, | 24Comment: Testing | 23 - 32 seconds | EXTERNAL | | | Patient | performed at [facility];[address] | | LAB | | | | [address];[place] | | | | | | [address] | | | | + + + + + -+ | CK-MB | 9.3 (H)Comment: Testing | 0.5 - 3.6 ng/mL | EXTERNAL | | | | performed at [facility];[address] | | LAB | | | | [facility];[place], [place] | | | | | | [address] | | | | + + + [...] + + + + | TSI | 0.91Comment: Testing | 0.45 - 5.10 | EXTERNAL | | | | performed at [facility];888 | uIU/mL | LAB | | | | [address];[place] | | | | | | [address] | | | | + + + [...] EXTERNAL | | | | performed at [facility];[address] | | LAB | | | | [address];[place], [place] | | | | | | [address] | | | | + + + [...]
--- OUTSIDE RECORDS SUMMARY | ~2019-10-04 | XMS | Encounter Summary ---
Demographics + + + | Address | [address] | | | [place] [address] | + + + | Home Phone [...] Team Providers + +------+ + | Care Powertrain Design Engineer Name | Role | Phone [...] Amanda, | | | 2013 | | [facility] | DO [address] | | | | | [address] | [place] | | | | | [place] | [address] | | | | | [address] | | | | | | [phone] | | | +--------+ + + + [...] | | | | | | [place] [address] | | | | | | [phone] | | | | | | | | +--------+ + + + + | 11/20/ | Implant | Cardiology | Daljit Singletary, | Remote Device | | 2018 | Monitor | | [facility] | Interrogation | | | | | [place], | (Primary Dx); | | | | | [place] [address] | Presence of | | | | | [phone] | permanent cardiac | | | | [...]
--- OUTSIDE RECORDS SUMMARY | ~2019-10-04 | XMS | Encounter Summary ---
Demographics + + + | Address | [address] | | | [place] [address] | + + + | Home Phone [...] Providers + +------+ + | Care Senior Strategy Manager Name | Role | Phone | [...] | Refill | [facility] [place] | [place], | Medication Refill | | 2014 | | CARDIOLOGY [address] | PARISA [address] | | | | | [place], | [place], | | | | | [place] [address] | [place] [address] | | | | | [phone] | [phone] | | | | | | | [...] | | | | | | [place], | | | | | | [place] [address] | | | | | | [phone] | | | | | | | | +--------+ + + + + | 11/20/ | Implant | Cardiology | Daljit Singletary, | Remote Device | | 2019 | Monitor | | [facility] | Interrogation | | | | | [place], | (Primary Dx); | | | | | [place] [address] | Presence of | | | | | [phone] | permanent cardiac | | | | [...]
--- OUTSIDE RECORDS SUMMARY | ~2019-10-04 | XMS | Encounter Summary ---
Demographics + + + | Address | [address] | | | [place] [address] | + + + | Home Phone [...] Providers + +------+ + | Care Family Preservation Worker Name | Role | Phone | [...] | Visit | CARDIOLOGY [address] | COMMUNICATIONS AND SIGNALS SUPERVISOR [address] | Dx) | | | | [place], | [place], [place] | | | | | [place] [address] | [address] | | | | | [phone] | | | +--------+---------+ + + + [...] Sanchez Date: December 21, 2012 : 1960 Ceramist: PARISA Velazquez Device Water Taxi Boat Mate: Medtronic Sense (mV) Impedance (?) Capture (V) Capture (ms) A Lead 4-5.6 423 1.5 0.09 RV Lead >31.36 539 2.0 0.09 LV Lead Battery Impedance (?): 301 Battery Voltage (V): 2.8 MN Interval (ms): 140 AR Interval (ms): 210 VA Conduction: Mode Switch Events: N/A % of time: -CONCRETE BATCHER: 0.6 AP-CONCRETE BATCHER: 1.3 -VS: 23.9 AP-VS: 74.2 CONCRETE BATCHER: Magnetic Rate: 85 LINDA: 65 LEAH: Current [...] | | | | | | [place] [address] | | | | | | [phone] | | | | | | | | +--------+ + + + + | 11/20/ | Implant | Cardiology | Gemini Shaistakenneth, | Remote Device | | 2019 | Monitor | | MD [facility] | Interrogation | | | | | [place], | (Primary Dx); | | | | | [place] [address] | Presence of | | | | | [phone] | permanent cardiac | | | | [...]
--- OUTSIDE RECORDS SUMMARY | ~2019-10-04 | XMS | Encounter Summary ---
Demographics + + + | Address | [address] | | | [place] [address] | + + + | Home Phone [...] Providers + +------+ + | Care Dock Builder Name | Role | Phone | + +------+ + | Michael Amanda DO | PCP | | + +------+ + Encounter Details +--------+ + + + + | Date | Type | Department | Care Team | Description | +--------+ + + + + | 06/26/ | Hospital | [facility] | Michael Amanda, | Diplopia | | 2012 | Encounter | MED CTR LABORATORY | DO [address] | | | | | [address] [place] | [place], [place] | | | | | [place], [place] | [address] | | | | | [address] | | | | | | [phone] | | | +--------+ + + + [...] + + + +---------+ + + | Seffner-3 Fatty | CAPS, one capsule by | [...] W | | | | | | [place], | | | | | | [place] [address] | | | | | | [phone] | | | | | | | | +--------+ + + + + | 11/20/ | Implant | Cardiology | Daljit Singletary, | Remote Device | | 2018 | Monitor | | [facility] | Interrogation | | | | | [place], | (Primary Dx); | | | | | [place] [address] | Presence of | | | | | [phone] | permanent cardiac | | | | [...] + | [facility] | [address] | [place], [place] | [phone] | | [facility] | | [address] | | | - LABORATORY | | | | + + + + + | [facility] | [address] | [place], [place] | | | [facility] | | [address] | | | - LABORATORY | | [...] performed on the Javid | uIU/mL | [facility] | | | | Aldo Access | [...] [address] | [place] | [phone] | | [facility] | | [address] | | | - LABORATORY | | | | + + + + + | [facility] | [address] | [place] | | | [facility] | | [address] | | | - LABORATORY | | [...] + | [facility] | [address] | [place] | [phone] | | [facility] | | [address] | | | - LABORATORY | | | | + + + + + | [facility] | [address] | [place], [place] | | | [facility] | | [address] | | | - LABORATORY | | [...] + | [facility] | [address] | [place] | [phone] | | [facility] | | [address] | | | - LABORATORY | | | | + + + + + | [facility] | [address] | [place], [place] | | | [facility] | | [address] | | | - LABORATORY | | [...] + | [facility] | [address] | [place] | [phone] | | [facility] | | [address] | | | - LABORATORY | | | | + + + + + | [facility] | [address] | [place] | | | [facility] | | [address] | | | - LABORATORY | | [...] performed on the Javid | uIU/mL | [facility] | | | | [place] [facility] | | MEDICAL | | | [...] + | [facility] | [address] | [place] | [phone] | | [facility] | | [address] | | | - LABORATORY | | | | + + + + + | [facility] | [address] | [place] | | | [facility] | | [address] | | | - LABORATORY | | | | + + + + + documented in this encounter Visit Diagnoses + + | Diagnosis | + + | Diplopia | + + documented in this encounter"
--- OUTSIDE RECORDS SUMMARY | ~2019-10-04 | XMS | Encounter Summary ---
Demographics + + + | Address | [address] | | | [place] [address] | + + + | Home Phone [...] Providers + +------+ + | Care Art Objects Supervisor Name | Role | Phone | + +------+ + PCP | Unavailable | + +------+ + Encounter Details +--------+ + + + + | Date | Type | Department | Care Team | Description | +--------+ + + + + | 01/31/ | Hospital | [facility] | | | | 2008 | Encounter | MED CTR EMERGENCY | | | | | | [place] [address] | | | | | | [place] | | | | | | [address] | | | | | | [phone] | | | +--------+ + + + [...] | | | | | | [place] [address] | | | | | | [phone] | | | | | | | | +--------+ + + + + | 11/20/ | Implant | Cardiology | Daljit Singletary, | Remote Device | | 2018 | Monitor | | [facility] | Interrogation | | | | | [place], | (Primary Dx); | | | | | [place] [address] | Presence of | | | | | [phone] | permanent cardiac | | | | [...]
--- OUTSIDE RECORDS SUMMARY | ~2019-10-04 | XMS | Encounter Summary ---
Demographics + + + | Address | [address] | | | [place] [address] | + + + | Home Phone [...] Team Providers + +------+ + | Care Horse Trainer Name | Role | Phone | [...] [place] | | | | | [place] | | [address] Phone: | | | | | CYSTO/URETER | | [phone] | | | | | O | | Fax: | | | | | W/LITHOTRIPS | | [phone] | | | | | Y &INDWELL [...] + + | 04/13/ | Hospital | [facility] | Matthew Uriarte | Preoperative | | 2019 | Encounter | MED CTR OR INTRA OP | Dahl, MD [address] | clearance (Primary | | | | [address] | [place] | Dx); Left ureteral | | | | [place] | [address] | calculus; Kidney | | | | [address] | | stones | | | | [phone] | | | +--------+ + + + [...] Care Everywhere.Kidney Stones, Treating: Ureteroscopic Stone Removal (Fijian)Stents, Ureteral (Fijian)documented in this encounter Medications at Time of [...] + + + +---------+ + + | [place]-3 Fatty | CAPS, one capsule by [...] | | | | | | | [place] coronary | | | | | | | artery of [place] | | | | | | | [...] W | | | | | | [place], | | | | | | [place] [address] | | | | | | [phone] | | | | | | | | +--------+ + + + + | 11/20/ | Implant | Cardiology | Daljit Singletary, | Remote Device | | 2018 | Monitor | | [facility] | Interrogation | | | | | [place], | (Primary Dx); | | | | | [place] [address] | Presence of | | | | | [phone] | permanent cardiac | | | | [...] [facility] | | | | | | at:[phone]. | | | | + + + [...] + | Performed at: 01 - [facility] [address] | REFERENCE LAB | | [place], [place] [id number] [place]: Yeny Rios MD, Phone: | ARSH CASTANON | | [phone] | | + + + + + + + + | Performing | Address | City/State/Zipcode | Phone Number | | Organization | | | | + + + + + | REFERENCE LAB | [address] | [place] [address] | [phone] | | [facility] | Drive [...] | [address] | [place] | [phone] | | [facility] | | [address] | | | - LABORATORY | | [...] | [address] | [place] | [phone] | | [facility] | | [address] | | | - LABORATORY | | [...] [address] | [place] | [phone] | | [facility] | | [address] | | | - LABORATORY | | [...] | [address] | [place] | [phone] | | [facility] | | [address] | | | [...] | 0.92 | 0.70 - 1.30 | [facility] | | | | | mg/dL | [facility] | | | | | | MEDICAL | | | | | | CENTER - | | | | | | LABORATORY | | + + + + + + | eGFR if not | >60Comment: GLOMERULAR | >=60 | [place] | | | | FILTRATION | mL/min/1.73m2 | [facility] | | | TUNISIAN | RATE,ESTIMATED | | MEDICAL | | | | mL/min/1.28i9Liuy than | | CENTER - | | [...] [address] | [place] | [phone] | | [facility] | | [address] | | | - LABORATORY | | [...] | | | dose on [facility] 04/13/19 at 1400, | | | Start 8 hours after pre-op dose., | | | Post-op/Phase II | | + +---+ | | | + +---+ | albuterol 2.5 mg/3 mL nebulizer | | | solution 2.5 mg 2.5 mg, | | | Nebulization, ONCE PRN, Wheezing, | | | Starting [facility] 04/13/19 at 0917, | | | [...] 40, | | | Starting [facility] 04/13/19 at 0917, For | | [...] | | | | | | | bjqjqu-gmw-newxo use of at least | | | [...] day), | | | First dose on [facility] 04/13/19 at | | | 2030, [...] Anxiety, or agitation, Starting | | | [facility] 04/13/19 at 0917, Maximum | | [...]
--- OUTSIDE RECORDS SUMMARY | ~2019-10-04 | XMS | Encounter Summary ---
Demographics + + + | Address | [address] | | | [place] [address] | + + + | Home Phone [...] Providers + +------+ + | Care Dental Associate Name | Role | Phone | [...] visit | CARDIOLOGY [address] | [address] | reprogramming/check | | | | [place], | [place], | [place] | | | | [place] [address] | [place] [address] | (Primary Dx); | | | | [phone] | [phone] | Sinoatrial node | | | | [...] W | | | | | | [place], | | | | | | [place] [address] | | | | | | [phone] | | | | | | | | +--------+ + + + + | 11/20/ | Implant | Cardiology | Daljit Singletary, | Remote Device | | 2018 | Monitor | | MD [address] | Interrogation | | | | | [place], | (Primary Dx); | | | | | [place] [address] | Presence of | | | | | [phone] | permanent cardiac | | | | [...]
--- OUTSIDE RECORDS SUMMARY | ~2019-10-04 | XMS | Encounter Summary ---
Demographics + + + | Address | [address] | | | [place] [address] | + + + | Home Phone [...] | | CARDIOLOGY [address] | Jane[address] MOTOR VEHICLE [address]PER[address] SUPERVISOR [address] | | | | | [place], | [place], | | | | | [place] [address] | [place] [address] | | | | | [phone] | [phone] | | | | | | | [...] | | | | | | [place] [address] | | | | | | [phone] | | | | | | | | +--------+ + + + + | 11/20/ | Implant | Cardiology | Daljit Singletary, | Remote Device | | 2018 | Monitor | | MD [address] | Interrogation | | | | | [place], | (Primary Dx); | | | | | [place] [address] | Presence of | | | | | [phone] | permanent cardiac | | | | [...]
--- OUTSIDE RECORDS SUMMARY | ~2019-10-04 | XMS | Encounter Summary ---
Demographics + + + | Address | [address] | | | [place] [address] | + + + | Home Phone [...] Providers + +------+ + | Care Caustic Strength Inspector Name | Role | Phone | + +------+ + PCP | Unavailable | + +------+ + Encounter Details +--------+ + + + + | Date | Type | Department | Care Team | Description | +--------+ + + + + | 06/12/ | [facility] | [facility] | Hunter Antunez, | | | 2007 - | Encounter | MED CTR ICU [address] | MD [address] | | | | | [place], | [place] | | | 06/15/ | | [place] [address] | [address] | | | 2007 | | [phone] | | | +--------+ + + + [...] | | | | | | [place] [address] | | | | | | [phone] | | | | | | | | +--------+ + + + + | 11/20/ | Implant | Cardiology | Daljit Singletary, | Remote Device | | 2019 | Monitor | | MD [address] | Interrogation | | | | | [place], | (Primary Dx); | | | | | [place] [address] | Presence of | | | | | [phone] | permanent cardiac | | | | [...]
--- OUTSIDE RECORDS SUMMARY | ~2019-10-04 | XMS | Encounter Summary ---
Demographics + + + | Address | [address] | | | [place] [address] | + + + | Home Phone [...] Providers + +------+ + | Care Family Life Educator Name | Role | Phone | [...] W | reprogramming/check | | | | [place], | [address] [place] | [place] | | | | [place] [address] | [place] [address] | (Primary Dx); | | | | [phone] | [phone] | Pacemaker - | | | | [...] | | | | | | [place] [address] | | | | | | [phone] | | | | | | | | +--------+ + + + + | 11/20/ | Implant | Cardiology | Daljit Singletary, | Remote Device | | 2018 | Monitor | | MD [address] | Interrogation | | | | | [place], | (Primary Dx); | | | | | [place] [address] | Presence of | | | | | [phone] | permanent cardiac | | | | [...]
--- OUTSIDE RECORDS SUMMARY | ~2019-10-04 | XMS | Encounter Summary ---
Demographics + + + | Address | [address] | | | [place] [address] | + + + | Home Phone [...] + +------+ + | Care Malted Milk Masher Name | Role | Phone | + [...] visit | CARDIOLOGY [address] | [address] | reprogramming/check | | | | [place], | [place], | [place] | | | | [place] [address] | [place] [address] | (Primary Dx); | | | | [phone] | [phone] | Sinoatrial node | | | | [...] W | | | | | | [place], | | | | | | [place] [address] | | | | | | [phone] | | | | | | | | +--------+ + + + + | 11/20/ | Implant | Cardiology | Daljit Singletary, | Remote Device | | 2018 | Monitor | | MD [address] [place] | Interrogation | | | | | [place], | (Primary Dx); | | | | | [place] [address] | Presence of | | | | | [phone] | permanent cardiac | | | | [...]
--- OUTSIDE RECORDS SUMMARY | ~2019-10-04 | XMS | Encounter Summary ---
Demographics + + + | Address | [address] | | | [place] [address] | + + + | Home Phone [...] Providers + +------+ + | Care Final Cigar And Box Examiner Name | Role | Phone | + +------+ + | Kirk French MD | PCP | | + +------+ + Encounter Details +--------+ + + + + | Date | Type | Department | Care Team | Description | +--------+ + + + + | 07/05/ | Hospital | [facility]ICAL | Conversion | Acute neck pain | | 2017 | Encounter | [facility] | Transaction, | | | | | [address] | Provider Unknown | | | | | [address] [place], [place] | [phone] | | | | | [address] | | | | | | [phone] | Apolonia Ruano | | | | | | MD Shelly [address] | | | | | | [address] | | | | | | [place], [place] | | | | | | [address] | | | | | | [phone] | | +--------+ + + + + [...] + + + +---------+ + + | [place]-3 Fatty | CAPS, one capsule by | [...] | | | | | | [place] [address] | | | | | | [phone] | | | | | | | | +--------+ + + + + | 11/20/ | Implant | Cardiology | Daljit Singletary, | Remote Device | | 2019 | Monitor | | MD [address] [facility] | Interrogation | | | | | [place], | (Primary Dx); | | | | | [place] [address] | Presence of | | | | | [phone] | permanent cardiac | | | | [...]
--- OUTSIDE RECORDS SUMMARY | ~2019-10-04 | XMS | Encounter Summary ---
Demographics + + + | Address | [address] | | | [place] [address] | + + + | Home Phone [...] Team Providers + +------+ + | Care Boom Pump Operator Name | Role | Phone [...] | CARDIOLOGY [address] | [address] [place] | Interrogation | | | | [place], | [place], | (Primary Dx); | | | | [place] [address] | [place] [address] | Pacemaker; | | | | [phone] | [phone] | Sinoatrial node | | | | [...] | | | | | | [place] [address] | | | | | | [phone] | | | | | | | | +--------+ + + + + | 11/20/ | Implant | Cardiology | Daljit Singletary, | Remote Device | | 2019 | Monitor | | MD [address] | Interrogation | | | | | [place], | (Primary Dx); | | | | | [place] [address] | Presence of | | | | | [phone] | permanent cardiac | | | | [...]
--- OUTSIDE RECORDS SUMMARY | ~2019-10-04 | XMS | Encounter Summary ---
Demographics + + + | Address | [address] | | | [place] [address] | + + + | Home Phone [...] + +------+ + | Care Contact Lens Blocker And Cutter Name | Role | Phone | [...] + | 01/25/ | Telephone | [facility] | Daljit Singletary, | Appointment | | 2017 | | CARDIOLOGY [address] | MD [address] | | | | | [place], | [place], | | | | | [place] [address] | [place] [address] | | | | | [phone] | | | | | | | [...] | | | | | | [place], | | | | | | [place] [address] | | | | | | [phone] | | | | | | | | +--------+ + + + + | 11/20/ | Implant | Cardiology | Daljit Singletary, | Remote Device | | 2018 | Monitor | | MD [address] | Interrogation | | | | | [place], | (Primary Dx); | | | | | [place] [address] | Presence of | | | | | [phone] | permanent cardiac | | | | [...]
--- OUTSIDE RECORDS SUMMARY | ~2019-10-04 | XMS | Encounter Summary ---
Demographics + + + | Address | [address] | | | [place] [address] | + + + | Home Phone [...] Team Providers + +------+ + | Care Solvent Station Attendant Name | Role | Phone [...] 2019 | | GASTROENTEROLOGY | MD [address] | | | | | [address] | [place]. [place] | | | | | [address] [place] | [place] [address] | | | | | [address] | | | | | | [phone] | | | +--------+ + + + [...] W | | | | | | [place], | | | | | | [place] [address] | | | | | | [phone] | | | | | | | | +--------+ + + + + | 11/20/ | Implant | Cardiology | Daljit Singletary, | Remote Device | | 2018 | Monitor | | [facility] | Interrogation | | | | | [place], | (Primary Dx); | | | | | [place] [address] | Presence of | | | | | [phone] | permanent cardiac | | | | [...]
--- OUTSIDE RECORDS SUMMARY | ~2019-10-04 | XMS | Encounter Summary ---
Demographics + + + | Address | [address] | | | [place] [address] | + + + | Home Phone [...] Providers + +------+ + | Care Perinatal Specialist Name | Role | Phone | + +------+ + | Kirk French MD | PCP | | + +------+ + Encounter Details +--------+ + + + + | Date | Type | Department | Care Team | Description | +--------+ + + + + | 01/25/ | Emergency | [facility] | Donald Callahan, | Strain of lumbar | | 2016 | | [facility]ICAL CENTER | Russ, DO [address] | paraspinal muscle, | | | | EM[facility]Y CENTER | [address] | initial encounter; | | | | [address] | [place], [place] | Left hip pain | | | | [place], [place] | [address] | | | | | [address] | | | | | | [phone] | | | +--------+ + + + [...] + + + +---------+ + + | Agu[place]-3 Fatty | CAPS, one capsule by | [...] | | | | | | [place] [address] | | | | | | [phone] | | | | | | | | +--------+ + + + + | 11/20/ | Implant | Cardiology | Daljit Singletary, | Remote Device | | 2019 | Monitor | | [place] [facility] | Interrogation | | | | | [place], | (Primary Dx); | | | | | [place] [address] | Presence of | | | | | [phone] | permanent cardiac | | | | [...] Conversion - 07/06/2019 12:12 AM PDT PINA [id number] years MaleXR | | LUMBAR SPINE LIMITED [...]
--- OUTSIDE RECORDS SUMMARY | ~2019-10-04 | XMS | Encounter Summary ---
Demographics + + + | Address | [address] | | | [place] [address] | + + + | Home Phone [...] Team Providers + +------+ + | Care State Appellate Clerk Name | Role | Phone | [...] + + | 06/26/ | Office | [facility] | ClarionJacek, | Diplopia (Primary | | 2012 | Visit | [facility] | [address] | Dx); Symptomatic | | | | [address] | [place] | PVCs; Hypertension | | | | [place], [place] | [address] | | | | | [address] | | | | | | [phone] | | | +--------+---------+ + + + [...] Double vision will affect your ability to 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 This means it will be harder [...] or, difficulty with vision, speech or walking [address]367[address] [place] [address]. All rights reserve d. This information is [...] from his pain clinic visit in the [facility] on Wednesday or he developed double [...] double vision. He was evaluated by Dr Clarion and had a normal eye exam, nor [...] tablet by mouth Daily. 30 tablet 6 [place]-3 Fatty Acids (SALMON OIL-1000 PO) CAPS, one [...] a follow-up on his right eye problem.Rob senthilsamirvasrha signed by Kyra Salas LPN at 06/26/2013 [...] | | | | | | [place] [address] | | | | | | [phone] | | | | | | | | +--------+ + + + + | 11/20/ | Implant | Cardiology | Daljit Singletary, | Remote Device | | 2018 | Monitor | | MD [address] | Interrogation | | | | | [place], | (Primary Dx); | | | | | [place] [address] | Presence of | | | | | [phone] | permanent cardiac | | | | [...] + | [facility] | [address] | [place] | [phone] | | [facility] | | [address] | | | - LABORATORY | | | | + + + + + | [facility] | [address] | [place] | | | [facility] | | [address] | | | - LABORATORY | | [...] + | [facility] | [address] | [place] | [phone] | | [facility] | | [address] | | | - LABORATORY | | | | + + + + + | [facility] | [address] | [place] | | | [facility] | | [address] | | | - LABORATORY | | [...] | [facility] | | | | [facility] | | MEDICAL | | | [...] [address] | [place] | [phone] | | [facility] | | [address] | | | - LABORATORY | | | | + + + + + | [facility] | [address] | [place], [place] | | | [facility] | | [address] | | | - LABORATORY | | | | + + + + + documented in this encounter Visit Diagnoses + + | Diagnosis | + + | Diplopia - Primary | + + | Symptomatic PVCs Other premature beats | + + | Hypertension Unspecified essential hypertension | + + documented in this encounter
--- OUTSIDE RECORDS SUMMARY | ~2019-10-04 | XMS | Encounter Summary ---
Demographics + + + | Address | [address] | | | [place] [address] | + + + | Home Phone [...] 04/28/ | [facility] | [facility] | Jonathan, | | | 2008 | Encounter | MED CTR EMERGENCY | Martell Cr MD [address] | | | | | CENTER [address] | [place] | | | | | [place] | [place] [address] | | | | | [address] | [phone] | | | | | [phone] | | | +--------+ + + + [...] W | | | | | | [place], | | | | | | [place] [address] | | | | | | [phone] | | | | | | | | +--------+ + + + + | 11/20/ | Implant | Cardiology | Daljit Singletary, | Remote Device | | 2019 | Monitor | | MD [address] | Interrogation | | | | | [place], | (Primary Dx); | | | | | [place] [address] | Presence of | | | | | [phone] | permanent cardiac | | | | [...]
--- OUTSIDE RECORDS SUMMARY | ~2019-10-04 | XMS | Encounter Summary ---
Demographics + + + | Address | [address] | | | [place] [address] | + + + | Home Phone [...] Providers + +------+ + | Care Junior Network Administrator Name | Role | Phone | [...] | Palpitations | [address] | | | | | Procedures | [address] | [address] [place] | | | | | ECHO | [place], | [place], [place] | | | | | Complete | [place] [address] | [address] | | | | | | Phone: | Phone: | | | | | | [phone] | [phone] | | | | | | Fax: | Fax: | | | | | | [phone] | [phone] | +--------+--------+ + + + + Reason [...] 12/21/ | Office | [facility] | Daljit Singletary, | Palpitations | | 2012 | Visit | CARDIOLOGY [address] | [address] | (Primary Dx); PVC | | | | [place], | [place], | (premature | | | | [place] [address] | [place] [address] | ventricular | | | | [phone] | [phone] | contraction) | | | | | [...] himself to the emergency department at [facility] in [place], [place]. Today, patient is apprehensive of the [...] tablet Take 1,000 mg by mouth Daily. [place]-3 Fatty Acids (SALMON OIL-1000 PO) CAPS, [...] tablet Take 1,000 mg by mouth Daily. [place]-3 Fatty Acids (SALMON OIL-1000 PO) CAPS, [...] Gay Date: December 21, 2012 : 1960 Tray Line Supervisor: PARISA Velazquez Device Front Desk Specialist: EcoEridaniatronic Sense (mV) Impedance (?) Capture (V) Capture (ms) A Lead 4-5.6 423 1.5 0.09 RV Lead >31.36 539 2.0 0.09 LV Lead Battery Impedance (?): 301 Battery Voltage (V): 2.8 KS Interval (ms): 140 AR Interval (ms): 210 VA Conduction: Mode Switch Events: N/A % of time: -SILVER DESIGNER: 0.6 AP-SILVER DESIGNER: 1.3 -VS: 23.9 AP-VS: 74.2 SILVER DESIGNER: Magnetic Rate: 85 LINDA: 65 LEAH: Current [...] to the emerge ncy department at [facility] in [place], [place]. EKG showed normal sinus rhythm with [...] I will d iscuss this option with logging specialist in [place]. 7. Followup in 2-4 weeks. Portions of this report were transcribed using voice recognition software. Every effort wa s made to ensure accuracy; however, inadvertent computerized research test engine operator errors may be pre sent. documented [...] | | | | | | [place] [address] | | | | | | [phone] | | | | | | | | +--------+ + + + + | 11/20/ | Implant | Cardiology | Daljit Singletary, | Remote Device | | 2019 | Monitor | | [facility] | Interrogation | | | | | [place], | (Primary Dx); | | | | | [place] [address] | Presence of | | | | | [phone] | permanent cardiac | | | | [...] Performed At | + + + | [facility] Diagnostic Imaging | [place] | | Department [address] | [facility] | | [ rep ct street[address]] [ rep ct [facility] [place] | | st zip] Signed | - IMAGING | | | | | Patient Name: MOE GAY | | | Physician: MIGUELINA : 1960 Age: 52 Sex: M Unit | | | #: [id number] Exam Date: 12/30/12 Location: | | | IMG Report #: [id number] Page: | | | %(RAD)RES..mtdd.print.filter("pg") of %(RAD) | | | RES..mtdd.print.filter("tpg") | | | | | | Accession Number: [id number] | | | E C H O C A R D I O G R A P H Y R E P O R T | | | HEIGHT: 76" WEIGHT: 270# | | | LICENSING REPRESENTATIVE: JAMEEL REFERRING DR: TIMMY READING DR: | [...] | | | Transcribed Date/Time: 12/30/2012 16:34 Radio Communications Superintendent: | | | <<Signature on File>> | | | Daljit | | | MD Gemini [facility] FASE01/02/13 0955 <Electronically signed by | | | Daljit Singletary MD, [facility], FACP, FASE, FASNC> Rashadong | | | MD CLEOPATRA Singletary FASE 12/30/12 1608 Radio Communications Superintendent: Jessica | | | Nmjsddarnznnn37/08/13 1634 MD ROSEMARY Newby | | | FASE | | + + + + + + + + | Performing | Address | City/[facility] | Phone Number | | Organization | | | | + + + + + | [address] | [address] | [place] | [phone] | | [facility] | | [address] | | | - IMAGING | | | | + + + + + documented in this encounter Visit Diagnoses + + | Diagnosis | + + | Palpitations - Primary | + + | PVC (premature ventricular contraction) Other premature beats | + + documented in this encounter
--- OUTSIDE RECORDS SUMMARY | ~2019-10-04 | XMS | Clinical Summary ---
Demographics + + + | Address | [address] [place] [address] | | | [place] [address] | + + + | Home Phone [...] [place] | | | | | [address] | | + + + + + Care Team Providers + +------+ + | Care Refrigeration Engine Operator Name | Role | Phone | + +------+ + | Darion Holden DO | PCP | | + +------+ + Source Comments IVETTE is fully live on both EpicCare Ambulatory and EpicCare InPatient[facility] Allergies + + + + + [...] | | | | | | | [address] | | + +--------+ +--------+ + +--------+ | [employer] | AARP | [phone] | 11/22/19 | [phone] | [address] | Indemn | | RETIRED PEOPLE | | | 10-Pre | 9 | [address] | ity | | | | | sent | | [place] | | | | | | | | [address] | | + +--------+ +--------+ + +--------+ + +--------+ +--------+ + + | Guarantor Name | Accoun | Relation to | Date | Phone | Billing Address | | | t Type | Patient | of | | | | | | | | | | + +--------+ +--------+ + + | Moe Sanchez W | Person | Self | [birth year] | [address] | | | cristo/Per | | 1960 | [id number] | [place] | | | roxanne | | | 8 (Home) | [address] | + +--------+ +--------+ + + Advance Directives + + + + + | Type | Date Recorded | Patient | Explanation | | | | Study Assistant | | + + + + + | Advance | | | | | Directives and | | | | | Living Will | | | | + + + + + | Power of | | | | | Hand Booked Folder And Stitcher | | | | + + + + +
--- OUTSIDE RECORDS SUMMARY | ~2019-10-04 | XMS | Encounter Summary ---
Demographics + + + | Address | [address] | | | [place] [address] | + + + | Home Phone [...] Team Providers + +------+ + | Care Pathology Collector Name | Role | Phone | [...] | CARDIOLOGY [address] | [address] | Interrogation | | | | [place], | [place], | (Primary Dx); | | | | [place] [address] | [place] [address] | Presence of | | | | [phone] | [phone] | permanent cardiac | | | | [...] | | | | | | [place] [address] | | | | | | [phone] | | | | | | | | +--------+ + + + + | 11/20/ | Implant | Cardiology | Daljit Singletary, | Remote Device | | 2019 | Monitor | | MD [address] [facility] | Interrogation | | | | | [place], | (Primary Dx); | | | | | [place] [address] | Presence of | | | | | [phone] | permanent cardiac | | | | [...]
--- OUTSIDE RECORDS SUMMARY | ~2019-10-04 | XMS | Encounter Summary ---
Demographics + + + | Address | [address] | | | [place] [address] | + + + | Home Phone [...] Team Providers + +------+ + | Care Securities Clerk Name | Role | Phone | [...] CTR CASE | RN | (referral from [facility]) | | | | MANAGEMENT [address] | | | | | | [place], | | | | | | [place] [address] | | | | | | [phone] | | | +--------+ + + + [...] | | | | | | [place] [address] | | | | | | [phone] | | | | | | | | +--------+ + + + + | 11/20/ | Implant | Cardiology | Daljit Singletary, | Remote Device | | 2018 | Monitor | | [address] | Interrogation | | | | | [place], | (Primary Dx); | | | | | [place] [address] | Presence of | | | | | [phone] | permanent cardiac | | | | [...]
--- OUTSIDE RECORDS SUMMARY | ~2019-10-04 | XMS | Encounter Summary ---
Demographics + + + | Address | [address] | | | [place] [address] | + + + | Home Phone [...] Team Providers + +------+ + | Care Ld Teacher Name | Role | Phone | + +------+ + | Kirk French MD | PCP | | + +------+ + Encounter Details +--------+ + + + + | Date | Type | Department | Care Team | Description | +--------+ + + + + | 06/19/ | Orders Only | [facility] | Fabrice Hylton, | Abnormal weight | | 2019 | | SYSTEM GENERIC OP | MD [address] | loss; Anxiety | | | | CONVERSION [address] | [address] [place], [place] | disorder; Chronic | | | | [address] [place], [place] | [address] | pain syndrome; | | | | [address] | | Obesity; Neuralgia | | | | [phone] | | and neuritis, | | | [...] W | | | | | | [place], | | | | | | [place] [address] | | | | | | [phone] | | | | | | | | +--------+ + + + + | 11/20/ | Implant | Cardiology | Daljit Singletary, | Remote Device | | 2019 | Monitor | | [address] [place] | Interrogation | | | | | [place], | (Primary Dx); | | | | | [place] [address] | Presence of | | | | | [phone] | permanent cardiac | | | | [...]
--- OUTSIDE RECORDS SUMMARY | ~2019-10-04 | XMS | Encounter Summary ---
Demographics + + + | Address | [address] | | | [place] [address] | + + + | Home Phone [...] Providers + +------+ + | Care Show Host/Hostess Name | Role | Phone | + [...] | | | | CENTER [address] | [place], [place] | insufficiency | | | | [place], [place] | [address] | | | | | [address] | | | | | | [phone] | | | +--------+ + + + [...] sent through Care Everywhere.PERIPHERAL KENYETTA A, BILATERAL (MALAY)documented in this encounter Medications at Time of [...] + + + +---------+ + + | [place]-3 Fatty | CAPS, one capsule by | [...] | | | | | | | #[id number], exp 07/2016 | | | | | [...] | | | | | | [place] [address] | | | | | | [phone] | | | | | | | | +--------+ + + + + | 11/20/ | Implant | Cardiology | Daljit Singletary, | Remote Device | | 2018 | Monitor | | MD [address] | Interrogation | | | | | [address] [place], | (Primary Dx); | | | | | [place] [address] | Presence of | | | | | [phone] | permanent cardiac | | | | [...]
--- OUTSIDE RECORDS SUMMARY | ~2019-10-04 | XMS | Encounter Summary ---
Demographics + + + | Address | [address] | | | [place] [address] | + + + | Home Phone [...] Team Providers + +------+ + | Care Camera Technician Name | Role | Phone | [...] | type | [address] | [address] | | | | | Procedures | ST [place] | [place], | | | | | FUP | [place], [place] | [place] [address] | | | | | | [address] | Phone: | | | | | | Phone: | [phone] | | | | | | [phone] | Fax: | | | | | | Fax: | [phone] | | | | | | [phone] | | +--------+ + + + + [...] | | | | CENTER [address] | [address] [place] | (Primary Dx) | | | | [place], [place] | [place] [address] | | | | | [address] | [phone] | | | | | [phone] | | | +--------+ + + + [...] cannot be sent through Care Everywhere.Angina, Stable (Senegalese)documented in this encounter Medications at Time of [...] + + + +---------+ + + | [place]-3 Fatty | CAPS, one capsule by | [...] | | | | | | [place] [address] | | | | | | [phone] | | | | | | | | +--------+ + + + + | 11/20/ | Implant | Cardiology | Gemini Shaistakenneth, | Remote Device | | 2019 | Monitor | | MD [address] [facility] | Interrogation | | | | | [place], | (Primary Dx); | | | | | [place] [address] | Presence of | | | | | [phone] | permanent cardiac | | | | [...] | | | | ANGELA MARADIAGA MD ([id number]) | | | | | | on [...] | | | | | | [employer] | | | | | [...] | [address] | [place] | [phone] | | [facility] | | [address] | | | - LABORATORY | | [...] [address] | [place] | [phone] | | [facility] | | [address] | | | - LABORATORY | | [...] | | | | | | [employer] | | | | | [...] + | [facility] | [address] | [place] | [phone] | | [facility] | | [address] | | | - LABORATORY | | [...] [facility] | | | GREEK | RATE,ESTIMATED | | MEDICAL | | | | mL/min/1.86v1Pgbq than | | CENTER - | | [...] | 9.3 | 8.3 - 10.5 | [facility] | | | | | mg/dL | [facility] | | | | | | MEDICAL | | | | | | CENTER - | | | | | | LABORATORY | | + + + + + + | Albumin | 4.2 | 3.2 - 5.0 g/dL | [facility] | | | | | | [facility] [...] [address] | [place] | [phone] | | [facility] | | [address] | | | - LABORATORY | | [...] [address] | [place] | [phone] | | [facility] | | [address] | | | - LABORATORY | | [...] | | | | ANGELA MARADIAGA MD ([id number]) | | | | | | on [...]
--- OUTSIDE RECORDS SUMMARY | ~2019-10-04 | XMS | Encounter Summary ---
Demographics + + + | Address | [address] | | | [place] [address] | + + + | Home Phone [...] Providers + +------+ + | Care Customer Support Executive Name | Role | Phone | [...] + | 06/20/ | Telephone | [facility] | Daljit Singletary, | Chest Pain | | 2018 | | CARDIOLOGY [address] | MD [address] [place] | | | | | [place], | [place], | | | | | [place] [address] | [place] [address] | | | | | [phone] | [phone] | | | | | | | [...] [place], | | | | | | [place] [address] | | | | | | [phone] | | | | | | | | +--------+ + + + + | 11/20/ | Implant | Cardiology | Daljit Singletary, | Remote Device | 2018 | Monitor | | [facility] | Interrogation | | | | | [place], | (Primary Dx); | | | | | [place] [address] | Presence of | | | | | [phone] | permanent cardiac | | | | [...]
--- OUTSIDE RECORDS SUMMARY | ~2019-10-04 | XMS | Encounter Summary ---
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, | (Primary Dx); | | | | | [place] [address] | Presence of | | | | | [phone] | permanent cardiac | | | | [...]
--- OUTSIDE RECORDS SUMMARY | ~2019-10-04 | XMS | Encounter Summary ---
Demographics + + + | Address | [address] | | | [place] [address] | + + + | Home Phone [...] Providers + +------+ + | Care Deck Mate Name | Role | Phone | + +------+ + | Michael Amanda DO | PCP | | + +------+ + Encounter Details +--------+ + + + + | Date | Type | Department | Care Team | Description | +--------+ + + + + | 04/03/ | Hospital | [facility] | Jay Gambino MD | | | 2012 - | Encounter | [facility] | [address] | | | | | CARDIAC TRANSPLANT | [address] [place] | | | 04/04/ | | [address] | [place] [address] | | | 2012 | | [place] | [phone] | | | | | [address] | | | | | | [phone] | | | +--------+ + + + [...] 1960 ADMISSION DATE: 04/03/2013 DISCHARGE DATE: 04/04/2013 [id number] / [id number] ADMISSION DIAGNOSES: 1. Symptomatic premature ventricular contractions [...] study and ablati on. MOE GAY ADM:04/03/13 [id number] 04/04/13 [place] DISCHARGE SUMMARY [id number] [facility] PARISA Hughes [facility] MD Meena Pleitez THIS REPORT IS CONFIDENTIAL AND NOT TO BE RELEASED WITHOUT PROPER AUTHORIZATION. [facility] Mr. Gay was taken to the [...] 180 mg once daily. MOE GAY ADM:04/03/13 [id number] 04/04/13 DIS [place] DISCHARGE SUMMARY [id number] [facility] PARISA Hughes [facility] MD Meena Pleitez THIS REPORT IS CONFIDENTIAL AND NOT TO BE RELEASED WITHOUT PROPER AUTHORIZATION. [facility] 5. Docusate sodium 2 tablets once daily. 6. Marinol 10 mg twice daily. 7. Metoprolol succinate 200 mg once daily. 8. Oxycodone 10 mg 10 mg oral as needed. 9. Oxycodone 30 mg oral twice daily. 10. Pravastatin 40 mg at bedtime. 11. Promethazine 25 mg as needed. 12. Ranitidine 1 to 2 tablets once daily. 13. Rowan oil 2 tablets twice daily. 14. Valacyclovir 500 mg once daily. There were no new medications or medication dosage changes at time of discharge. PLAN: 1. Mr. Gay will be discharged home on medications as noted above, including his usual m edications of diltiazem and metoprolol. 2. He will be seen and followed by Dr. Gambino on 16 at 9:00 a.m. at [facility], [address]. 3. He will contact our office earlier than scheduled appointment should he have any diffic ulty prior to that time. PARISA Hughes MD A P RICHIE/med #[id number] cc: MD Dona Pleitez ARNP Suwong Wongsuwan, MD Electronically Signed 04/12/13 1400 PARISA Hughes Electronically Signed 05/22/13 1245 Jay Gambino MD MOE GAY ADM:04/03/13 [id number] 04/04/13 DIS [place] DISCHARGE SUMMARY [id number] [facility] PARISA Hughes ES B [facility] Jay Gambino MD R THIS REPORT IS CONFIDENTIAL AND NOT TO BE RELEASED WITHOUT PROPER AUTHORIZATION.Electronica lly signed by Jael Brown at 05/22/2013 1:25 PM Dona Grossman ARNP - 04/04/2013 9:05 AM PDT PATIENT NAME: MOE GAY Sex/Age: M / 53Y : 1960 ADMISSION DATE: 04/03/2013 DISCHARGE DATE: 04/04/2013 [id number] / [id number] ADMISSION DIAGNOSES: 1. Symptomatic premature ventricular contractions [...] and ablati on. MOE GAY Jaimee ADM:04/03/13 [id number] 04/04/13 [place] DISCHARGE SUMMARY [id number] [facility] PARISA Hughes [facility] MD Meena Pleitez THIS REPORT IS CONFIDENTIAL AND NOT TO BE RELEASED WITHOUT PROPER AUTHORIZATION. [facility] Mr. Gay was taken to the [...] 180 mg once daily. MOE GAY ADM:04/03/13 [id number] 04/04/13 DIS [place] DISCHARGE SUMMARY [id number] [facility] PARISA Hughes [facility] MD Meena Pleitez THIS REPORT IS CONFIDENTIAL AND NOT TO BE RELEASED WITHOUT PROPER AUTHORIZATION. [facility] 5. Docusate sodium 2 tablets once daily. 6. Marinol 10 mg twice daily. 7. Metoprolol succinate 200 mg once daily. 8. Oxycodone 10 mg 10 mg oral as needed. 9. Oxycodone 30 mg oral twice daily. 10. Pravastatin 40 mg at bedtime. 11. Promethazine 25 mg as needed. 12. Ranitidine 1 to 2 tablets once daily. 13. Rowan oil 2 tablets twice daily. 14. Valacyclovir 500 mg once daily. There were no new medications or medication dosage changes at time of discharge. PLAN: 1. Mr. Gay will be discharged home on medications as noted above, including his usual m edications of diltiazem and metoprolol. 2. He will be seen and followed by Dr. Gambino on 16 at 9:00 a.m. at [facility], [address]. 3. He will contact our office earlier than scheduled appointment should he have any diffic ulty prior to that time. PARISA Hughes MD A P RICHIE/med #[id number] cc: MD Dona Pleitez ARNP Suwong Wongsuwan, MD Electronically Signed 04/12/13 1400 PARISA Hughes MOE GAY ADM:04/03/13 [id number] 04/04/13 DIS [place] DISCHARGE SUMMARY [id number] [facility] PARISA Hughes [place] [facility] MD Meena Pleitez THIS REPORT IS [...] + + + +---------+ + + | [place]-3 Fatty | CAPS, one capsule by | [...] | | | | | | [place] [address] | | | | | | [phone] | | | | | | | | +--------+ + + + + | 11/20/ | Implant | Cardiology | Daljit Singletary, | Remote Device | | 2019 | Monitor | | [address] [facility] | Interrogation | | | | | [place], | (Primary Dx); | | | | | [place] [address] | Presence of | | | | | [phone] | permanent cardiac | | | | [...] + + + | Glucose | 94Comment: Guinean | 65 - 99 mg/dL | [facility] [...] | | | | failure.For | | [place] | | | | Americans, multiply the [...] + + | [facility] | [address] | [place] [address] | | | [facility] | | | | | [...] + + | Y[facility]Y [facility]ON[facility] | [address] | [place] [address] | | | [facility] | | | | | LABORATORY | | | | + + + + + documented in this encounter Visit Diagnoses Not on filedocumented in this encounter"
--- OUTSIDE RECORDS SUMMARY | ~2019-10-04 | XMS | Encounter Summary ---
Demographics + + + | Address | [address] | | | [place] [address] | + + + | Home Phone [...] Providers + +------+ + | Care High Density Press Laborer Name | Role | Phone | [...] 2018 | | GASTROENTEROLOGY | [address], [place] | about prep for | | | | [address] [place] | [address] [place], [place] | procedure) | | | | [address] [place], [place] | [address] | | | | | [address] | | | | | | [phone] | | | +--------+ + + + [...] | | | | | | [place] [address] | | | | | | [phone] | | | | | | | | +--------+ + + + + | 11/20/ | Implant | Cardiology | Daljit Singletary, | Remote Device | | 2019 | Monitor | | MD [address] | Interrogation | | | | | [place], | (Primary Dx); | | | | | [place] [address] | Presence of | | | | | [phone] | permanent cardiac | | | | [...]
--- OUTSIDE RECORDS SUMMARY | ~2019-10-04 | XMS | Encounter Summary ---
Demographics + + + | Address | [address] | | | [place] [address] | + + + | Home Phone [...] Providers + +------+ + | Care Computer Numeric Control Setter Name | Role | Phone | [...] | 07/07/ | Telephone | [facility] [place] | Daljit Singletary, | Appointment | | 2012 | | CARDIOLOGY [address] | MD [address] [place] | | | | | [place], | [place], | | | | | [place] [address] | [place] [address] | | | | | [phone] | [phone] | | | | | | | [...] | | | | | | [place] [address] | | | | | | [phone] | | | | | | | | +--------+ + + + + | 11/20/ | Implant | Cardiology | Daljit Singletary, | Remote Device | | 2018 | Monitor | | [address] [facility] | Interrogation | | | | | [place], | (Primary Dx); | | | | | [place] [address] | Presence of | | | | | [phone] | permanent cardiac | | | | [...]
--- OUTSIDE RECORDS SUMMARY | ~2019-10-04 | XMS | Encounter Summary ---
Demographics + + + | Address | [address] | | | [place] [address] | + + + | Home Phone [...] Providers + +------+ + | Care Carpenter Ship Name | Role | Phone | + [...] Refill | | 2013 | | MEDICINE [place] | DO [address] | | | | | [address] | [place] | | | | | [place] | [address] | | | | | [address] | | | | | | [phone] | | | +--------+--------+ + + + [...] W | | | | | | [place], | | | | | | [place] [address] | | | | | | [phone] | | | | | | | | +--------+ + + + + | 11/20/ | Implant | Cardiology | Daljit Singletary, | Remote Device | | 2018 | Monitor | | [facility] | Interrogation | | | | | [place], | (Primary Dx); | | | | | [place] [address] | Presence of | | | | | [phone] | permanent cardiac | | | | [...]
--- OUTSIDE RECORDS SUMMARY | ~2019-10-04 | XMS | Encounter Summary ---
Demographics + + + | Address | [address] | | | [place] [address] | + + + | Home Phone [...] Providers + +------+ + | Care Rail Walker Name | Role | Phone | + [...] + + | 08/04/ | Telephone | [facility] | Silvia, | Other (4 week event | | 2017 | | CARDIOLOGY [address] | PARISA [place] [address] | monitor ) | | | | [place], | [place], | | | | | [place] [address] | [place] [address] | | | | | [phone] | [phone] | | | | | | | [...] | | | | | | [place] [address] | | | | | | [phone] | | | | | | | | +--------+ + + + + | 11/20/ | Implant | Cardiology | Daljit Singletary, | Remote Device | | 2018 | Monitor | | [address] [place] | Interrogation | | | | | [place], | (Primary Dx); | | | | | [place] [address] | Presence of | | | | | [phone] | permanent cardiac | | | | [...]
--- OUTSIDE RECORDS SUMMARY | ~2019-10-04 | XMS | Encounter Summary ---
Demographics + + + | Address | [address] | | | [place] [address] | + + + | Home Phone [...] Providers + +------+ + | Care Transmission Builder Name | Role | Phone | [...] | type | [address] | [address] | | | | | Procedures | [place] | [place], | | | | | FUP | [place], [place] | [place] [address] | | | | | | [address] | Phone: | | | | | | Phone: | [phone] | | | | | | [phone] | Fax: | | | | | | Fax: | [phone] | | | | | | [phone] | | +--------+ + + + + [...] | | | | CENTER [address] | [address] [place] | (Primary Dx) | | | | [place], [place] | [place] [address] | | | | | [address] | [phone] | | | | | [phone] | | | +--------+ + + + [...] cannot be sent through Care Everywhere.Angina, Stable (Prydeinig)documented in this encounter Medications at Time of [...] + + + +---------+ + + | [place]-3 Fatty | CAPS, one capsule by | [...] | | | | | | [place] [address] | | | | | | [phone] | | | | | | | | +--------+ + + + + | 11/20/ | Implant | Cardiology | Gemini Shaistakenneth, | Remote Device | | 2019 | Monitor | | MD [address] [facility] | Interrogation | | | | | [place], | (Primary Dx); | | | | | [place] [address] | Presence of | | | | | [phone] | permanent cardiac | | | | [...] | | | | ANGELA MARADIAGA MD ([id number]) | | | | | | on [...] | | | | | | [employer] | | | | | [...] | [address] | [place] | [phone] | | [facility] | | [address] | | | - LABORATORY | | [...] [address] | [place] | [phone] | | [facility] | | [address] | | | - LABORATORY | | [...] | | | | | | [employer] | | | | | [...] + | [facility] | [address] | [place] | [phone] | | [facility] | | [address] | | | - LABORATORY | | [...] [facility] | | | GUY[place]ESE | RATE,ESTIMATED | | MEDICAL | | | | mL/min/1.95m2Qzvc than | | CENTER - | | [...] | 9.3 | 8.3 - 10.5 | [facility] | | | | | mg/dL | [facility] | | | | | | MEDICAL | | | | | | CENTER - | | | | | | LABORATORY | | + + + + + + | Albumin | 4.2 | 3.2 - 5.0 g/dL | [facility] | | | | | | [facility] | | [...] | | ine Ratio | | | [facility] | | [...] [address] | [place] | [phone] | | [facility] | | [address] | | | - LABORATORY | | [...] [address] | [place] | [phone] | | [facility] | | [address] | | | - LABORATORY | | [...] | | | | ANGELA MARADIAGA MD ([id number]) | | | | | | on [...]
--- OUTSIDE RECORDS SUMMARY | ~2019-10-04 | XMS | Encounter Summary ---
Demographics + + + | Address | [address] | | | [place] [address] | + + + | Home Phone [...] Providers + +------+ + | Care Planer Hand Name | Role | Phone | + +------+ + PCP | Unavailable | + +------+ + Encounter Details +--------+ + + + + | Date | Type | Department | Care Team | Description | +--------+ + + + + | 10/19/ | Hospital | [facility] | | | | 1992 | Encounter | MED CTR EMERGENCY | | | | | | CENTER [address] | | | | | | [place] | | | | | | [address] | | | | | | [phone] | | | +--------+ + + + [...] | | | | | | [place] [address] | | | | | | [phone] | | | | | | | | +--------+ + + + + | 11/20/ | Implant | Cardiology | Daljit Singletary, | Remote Device | | 2018 | Monitor | | [address] [facility] | Interrogation | | | | | [place], | (Primary Dx); | | | | | [place] [address] | Presence of | | | | | [phone] | permanent cardiac | | | | [...]
--- OUTSIDE RECORDS SUMMARY | ~2019-10-04 | XMS | Encounter Summary ---
Demographics + + + | Address | [address] | | | [place] [address] | + + + | Home Phone [...] Providers + +------+ + | Care Railroad Engineer Name | Role | Phone | [...] + | 01/25/ | Telephone | [facility] | Daljit Singletary, | Appointment | | 2017 | | CARDIOLOGY [address] | MD [address] [place] | | | | | [place], | [place], | | | | | [place] [address] | [place] [address] | | | | | [phone] | [phone] | | | | | | | [...] W | | | | | | [place], | | | | | | [place] [address] | | | | | | [phone] | | | | | | | | +--------+ + + + + | 11/20/ | Implant | Cardiology | Daljit Singletary, | Remote Device | | 2018 | Monitor | | MD [address] [place] | Interrogation | | | | | [place], | (Primary Dx); | | | | | [place] [address] | Presence of | | | | | [phone] | permanent cardiac | | | | [...]
--- OUTSIDE RECORDS SUMMARY | ~2019-10-04 | XMS | Encounter Summary ---
Demographics + + + | Address | [address] | | | [place] [address] | + + + | Home Phone [...] Providers + +------+ + | Care Fiber Technologist Name | Role | Phone | [...] Refill | | 2014 | | MEDICINE [place] | DO [address] | | | | | [address] | [place] | | | | | [place], [place] | [address] | | | | | [address] | | | | | | [phone] | | | +--------+--------+ + + + [...] | | | | | | [place], | | | | | | [place] [address] | | | | | | [phone] | | | | | | | | +--------+ + + + + | 11/20/ | Implant | Cardiology | Daljit Singletary, | Remote Device | | 2019 | Monitor | | [address] [place] | Interrogation | | | | | [place], | (Primary Dx); | | | | | [place] [address] | Presence of | | | | | [phone] | permanent cardiac | | | | [...]
--- OUTSIDE RECORDS SUMMARY | ~2019-10-04 | XMS | Encounter Summary ---
Demographics + + + | Address | [address] | | | [place] [address] | + + + | Home Phone [...] Team Providers + +------+ + | Care Bore Mill Operator For Plastic Name | Role | Phone | + +------+ + PCP | Unavailable | + +------+ + Encounter Details +--------+ + + + + | Date | Type | Department | Care Team | Description | +--------+ + + + + | 02/21/ | [facility] | [facility] | Cristy Braun | | | 2008 | Encounter | MED CTR EMERGENCY | Ronald Adrian MD [address] | | | | | [place] [address] | [facility] | | | | | [place] | [place] [address] | | | | | [address] | [phone] | | | | | [phone] | | | +--------+ + + + [...] | | | | | | [place] [address] | | | | | | [phone] | | | | | | | | +--------+ + + + + | 11/20/ | Implant | Cardiology | Daljit Singletary, | Remote Device | | 2018 | Monitor | | MD [address] | Interrogation | | | | | [place], | (Primary Dx); | | | | | [place] [address] | Presence of | | | | | [phone] | permanent cardiac | | | | [...]
--- OUTSIDE RECORDS SUMMARY | ~2019-10-04 | XMS | Encounter Summary ---
Demographics + + + | Address | [address] | | | [place] [address] | + + + | Home Phone [...] Providers + +------+ + | Care Conference Concierge Name | Role | Phone | [...] Refill | | 2014 | | MEDICINE [place] | DO [address] | | | | | [address] | [place] | | | | | [place], [place] | [address] | | | | | [address] | | | | | | [phone] | | | +--------+--------+ + + + [...] | | | | | | [place], | | | | | | [place] [address] | | | | | | [phone] | | | | | | | | +--------+ + + + + | 11/20/ | Implant | Cardiology | Daljit Singletary, | Remote Device | | 2019 | Monitor | | [address] [place] | Interrogation | | | | | [place], | (Primary Dx); | | | | | [place] [address] | Presence of | | | | | [phone] | permanent cardiac | | | | [...]
--- OUTSIDE RECORDS SUMMARY | ~2019-10-04 | XMS | Encounter Summary ---
Demographics + + + | Address | [address] | | | [place] [address] | + + + | Home Phone [...] Providers + +------+ + | Care Log Loader Name | Role | Phone | [...] | Office | [facility] | [place], | SINUS BRADYCARDIA | | 2013 | Visit | CARDIOLOGY [address] | PARISA Vernon [address] | (Primary Dx); | | | | [place], | [place], | Syncope; Symptomatic | | | | [place] [address] | [place] [address] | PVCs; Pacemaker - | | | | [phone] | [phone] | Medtronic - [id number] | | | [...] Sanchez Date: March 07, 2014 : 1960 Golf Starter And Ranger: Kailey Pruitt RN Device Facility Maintenance Helper:Medtronic Sense (mV) Impedance (?) Capture (V) Capture (ms) A Lead >5.60 402 1.500 0.09 RV Lead >31.36 522 2.00 0.09 LV Lead Battery Impedance (?): 528 Battery Voltage (V): 2.79 AL Interval (ms): 147 AR Interval (ms): 217 VA Conduction: Mode Switch Events: 0 % of time: 0 -ORCHARD PRUNER: <0.1% AP-ORCHARD PRUNER: 0.1% -VS: 23.8% AP-VS: 76.1% ORCHARD PRUNER: Magnetic Rate: 85 LINDA: 65 LEAH: Current [...] Pruitt RN 03/07/2014 12:00 Janeen Mccollum AR MACHINING ASSOCIATE - 03/07/2014 11:07 AM PDT PATIENT NAME: [...] headaches. He paulino d been seen at [facility] a couple times with [...] needed for Chest pain. 25 tablet 12 [place]-3 Fatty Acids (SALMON OIL-1000 PO) CAPS, one [...] Sanchez Date: March 07, 2014 : 1960 Golf Starter And Ranger: Kailey Pruitt RN Device Facility Maintenance Helper:FrugalMechanic Sense (mV) Impedance (?) Capture (V) Capture (ms) A Lead >5.60 402 1.500 0.09 RV Lead >31.36 522 2.00 0.09 LV Lead Battery Impedance (?): 528 Battery Voltage (V): 2.79 AL Interval (ms): 147 AR Interval (ms): 217 VA Conduction: Mode Switch Events: 0 % of time: 0 -ORCHARD PRUNER: <0.1% AP-ORCHARD PRUNER: 0.1% -VS: 23.8% AP-VS: 76.1% ORCHARD PRUNER: Magnetic Rate: 85 LINDA: 65 LEAH: Current [...] attenuation cannot completely be ruled out. [facility] 12/25/13, shows noncritical coronary artery disease, [...] pain. He is in class II of [place] [employer] functional class . There are [...] to go back in 3 days to [place] for an attempt of ablation under general [...] palpitations.. He is in class II of [place] Heart Ass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 There are no [...] bring in his blood [facility] from [facility] e 5. Lightheadedness and dizziness/ [...] made to ensure accuracy; however, inadvertent computerized clerical and administrative workers errors may be pre sent. Electronically signed [...] | | | | | | [place] [address] | | | | | | [phone] | | | | | | | | +--------+ + + + + | 11/20/ | Implant | Cardiology | Daljit Singletary, | Remote Device | | 2019 | Monitor | | MD [address] | Interrogation | | | | | [place], | (Primary Dx); | | | | | [place] [address] | Presence of | | | | | [phone] | permanent cardiac | | | | [...] 07, 2014 : | | | 1960 Golf Starter And Ranger: Kailey Pruitt RN Device | | | Facility Maintenance Helper:FrugalMechanic Sense (mV) Impedance (?) Capture (V) | | | Capture (ms) A Lead >5.60 402 1.500 0.09 RV Lead >31.36 522 2.00 | | | 0.09 LV Lead Battery Impedance (?): 528 Battery Voltage (V): | | | 2.79 AL Interval (ms): 147 AR Interval (ms): 217 VA Conduction: | | | Mode Switch Events: 0 % of time: 0 -ORCHARD PRUNER: <0.1% AP-ORCHARD PRUNER: 0.1% -VS: | | | 23.8% AP-VS: 76.1% ORCHARD PRUNER: Magnetic Rate: 85 LINDA: 65 LEAH: Current [...] | | Date: March 07, 2014DOB: 1960 Golf Starter And Ranger: Kailey Pruitt RN Device | | Facility Maintenance Helper:FrugalMechanic Sense (mV) Impedance (?) Capture (V) Capture (ms) A Lead >5.60 | | 402 1.500 0.09 RV Lead >31.36 522 2.00 0.09 LV Lead Battery Impedance (?): 528 | | Battery Voltage (V): 2.79 AL Interval (ms): 147 AR Interval (ms): 217 VA Conduction: | | Mode Switch Events: 0 % of time: 0 -ORCHARD PRUNER: <0.1% AP-ORCHARD PRUNER: 0.1% -VS: 23.8% AP-VS: 76.1% | | ORCHARD PRUNER: Magnetic Rate: 85 LINDA: 65 LEAH: Current [...]
--- OUTSIDE RECORDS SUMMARY | ~2019-10-04 | XMS | Encounter Summary ---
Demographics + + + | Address | [address] | | | [place] [address] | + + + | Home Phone [...] Providers + +------+ + | Care Service Crew Supervisor Name | Role | Phone [...] + | 01/02/ | Telephone | [facility] | Daljit Singletary, | Other (chest pain) | | 2018 | | CARDIOLOGY [address] | MD [address] [place] | | | | | [place], | [place], | | | | | [place] [address] | [place] [address] | | | | | [phone] | | | | | | | [...] | | | | | | [place], | | | | | | [place] [address] | | | | | | [phone] | | | | | | | | +--------+ + + + + | 11/20/ | Implant | Cardiology | Daljit Singletary, | Remote Device | | 2018 | Monitor | | MD Sim [facility] | Interrogation | | | | | [place], | (Primary Dx); | | | | | [place] [address] | Presence of | | | | | [phone] | permanent cardiac | | | | [...]
--- OUTSIDE RECORDS SUMMARY | ~2019-10-04 | XMS | Encounter Summary ---
Demographics + + + | Address | [address] | | | [place] [address] | + + + | Home Phone [...] Providers + +------+ + | Care Senior Vice President Name | Role | Phone | + +------+ + | Kirk French MD | PCP | | + +------+ + Encounter Details +--------+ + + + + | Date | Type | Department | Care Team | Description | +--------+ + + + + | 01/05/ | Anesthesia | [facility] | Jarett Barakat | | | 2019 | Event | MED CTR MP INTRA OP | P, MD [address] | | | | | [address] | [place], [place] | | | | | [place], [place] | [address] | | | | | [address] | [phone] | | | | | [phone] | | | +--------+ + + + [...] explained and consent obtained. Patient transported to [facility], | | | 4 | | [...] | 01/05/19950 by | | eral | xkev-lby-ulqrgp catheter system; | Kasie Natarajan RN | [...] | | | | | | [place] [address] | | | | | | [phone] | | | | | | | | +--------+ + + + + | 11/20/ | Implant | Cardiology | Daljit Singletary, | Remote Device | | 2018 | Monitor | | [address] [facility] | Interrogation | | | | | [place], | (Primary Dx); | | | | | [place] [address] | Presence of | | | | | [phone] | permanent cardiac | | | | [...] | | | | | Vomiting, Starting [facility] 01/05/19 at | | AM PST [...]
--- OUTSIDE RECORDS SUMMARY | ~2019-10-04 | XMS | Encounter Summary ---
Demographics + + + | Address | [address] | | | [place] [address] | + + + | Home Phone [...] Providers + +------+ + | Care Industrial Economist Name | Role | Phone | + +------+ + | Michael Amanda DO | PCP | | + +------+ + Encounter Details +--------+ + + + + | Date | Type | Department | Care Team | Description | +--------+ + + + + | 04/03/ | Hospital | [facility] | Jay Gambino MD | | | 2012 - | Encounter | HEART MED CTR | [address] | | | | | CARDIAC TRANSPLANT | [address] [place] | | | 04/04/ | | [address] | [place] [address] | | | 2012 | | [place] | [phone] | | | | | [address] | | | | | | [phone] | | | +--------+ + + + [...] 1960 ADMISSION DATE: 04/03/2013 DISCHARGE DATE: 04/04/2013 [id number] / [id number] ADMISSION DIAGNOSES: 1. Symptomatic premature ventricular contractions [...] study and ablati on. MOE GAY ADM:04/03/13 [id number] 04/04/13 [place] DISCHARGE SUMMARY [id number] [facility] PARISA Hughes [facility] MD Meena Pleitez THIS REPORT IS CONFIDENTIAL AND NOT TO BE RELEASED WITHOUT PROPER AUTHORIZATION. [facility] Mr. Gay was taken to the [...] 180 mg once daily. MOE GAY ADM:04/03/13 [id number] 04/04/13 [place] DISCHARGE SUMMARY [id number] [facility] PARISA Hughes [facility] MD Meena Pleitez THIS REPORT IS CONFIDENTIAL AND NOT TO BE RELEASED WITHOUT PROPER AUTHORIZATION. [facility] 5. Docusate sodium 2 tablets once daily. 6. Marinol 10 mg twice daily. 7. Metoprolol succinate 200 mg once daily. 8. Oxycodone 10 mg 10 mg oral as needed. 9. Oxycodone 30 mg oral twice daily. 10. Pravastatin 40 mg at bedtime. 11. Promethazine 25 mg as needed. 12. Ranitidine 1 to 2 tablets once daily. 13. Catawba oil 2 tablets twice daily. 14. Valacyclovir 500 mg once daily. There were no new medications or medication dosage changes at time of discharge. PLAN: 1. Mr. Gay will be discharged home on medications as noted above, including his usual m edications of diltiazem and metoprolol. 2. He will be seen and followed by Dr. Gambion on 16 at 9:00 a.m. at [facility], [address]. 3. He will contact our office earlier than scheduled appointment should he have any diffic ulty prior to that time. PARISA Hughes MD A P RICHIE/med #[id number] cc: MD Dona Pleitez ARNP Suwong Wongsuwan, MD Electronically Signed 04/12/13 1400 PARISA Hughes Electronically Signed 05/22/13 1245 Jay Gambino MD MOE GAY ADM:04/03/13 [id number] 04/04/13 DIS [place] DISCHARGE SUMMARY [id number] [facility] PARISA Hughes ES B [facility] Jay Gambino MD R THIS REPORT IS CONFIDENTIAL AND NOT TO BE RELEASED WITHOUT PROPER AUTHORIZATION.Electronica lly signed by Jael Brown at 05/22/2013 1:25 PM Dona Grossman ARNP - 04/04/2013 9:05 AM PDT PATIENT NAME: MOE GAY Sex/Age: M / 53Y : 1960 ADMISSION DATE: 04/03/2013 DISCHARGE DATE: 04/04/2013 [id number] / [id number] ADMISSION DIAGNOSES: 1. Symptomatic premature ventricular contractions [...] and ablati on. MOE GAY Jaimee ADM:04/03/13 [id number] 04/04/13 [place] DISCHARGE SUMMARY [id number] [facility] PARISA Hughes [facility] MD Meena Pleitez THIS REPORT IS CONFIDENTIAL AND NOT TO BE RELEASED WITHOUT PROPER AUTHORIZATION. [facility] Mr. Gay was taken to the [...] 180 mg once daily. MOE GAY ADM:04/03/13 [id number] 04/04/13 [place] DISCHARGE SUMMARY [id number] [facility] PARISA Hughes [facility] MD Meena Pleitez THIS REPORT IS CONFIDENTIAL AND NOT TO BE RELEASED WITHOUT PROPER AUTHORIZATION. [facility] 5. Docusate sodium 2 tablets once daily. 6. Marinol 10 mg twice daily. 7. Metoprolol succinate 200 mg once daily. 8. Oxycodone 10 mg 10 mg oral as needed. 9. Oxycodone 30 mg oral twice daily. 10. Pravastatin 40 mg at bedtime. 11. Promethazine 25 mg as needed. 12. Ranitidine 1 to 2 tablets once daily. 13. Catawba oil 2 tablets twice daily. 14. Valacyclovir 500 mg once daily. There were no new medications or medication dosage changes at time of discharge. PLAN: 1. Mr. Gay will be discharged home on medications as noted above, including his usual m edications of diltiazem and metoprolol. 2. He will be seen and followed by Dr. Gambino on 16 at 9:00 a.m. at [facility], [address]. 3. He will contact our office earlier than scheduled appointment should he have any diffic ulty prior to that time. PARISA Hughes MD A P RICHIE/med #[id number] cc: MD Dona Pleitez ARNP Suwong Wongsuwan, MD Electronically Signed 04/12/13 1400 PARISA Hughes MOE GAY ADM:04/03/13 [id number] 04/04/13 DIS [place] DISCHARGE SUMMARY [id number] [facility] PARISA Hughes [facility] MD Meena Pleitez THIS REPORT IS CONFIDENTIAL [...] + + +---------+ + + | [place]-3 Fatty | CAPS, one capsule by | [...] | | | | | | [place] [address] | | | | | | [phone] | | | | | | | | +--------+ + + + + | 11/20/ | Implant | Cardiology | Daljit Singletary, | Remote Device | | 2019 | Monitor | | [address] [facility] | Interrogation | | | | | [place], | (Primary Dx); | | | | | [place] [address] | Presence of | | | | | [phone] | permanent cardiac | | | | [...] + | Glucose | 94Comment: [place] | 65 - 99 mg/dL | [facility] [...] | | | | failure.For | | [place] | | | | Americans, multiply the [...] + + | YESSY SACRED | [address] | [place] [address] | | | [facility] | | | | [...] + + | YESSY JONES | [address] | [place] [address] | | | [facility] | | | | | LABORATORY | | | | + + + + + documented in this encounter Visit Diagnoses Not on filedocumented in this encounter"
--- OUTSIDE RECORDS SUMMARY | ~2019-10-04 | XMS | Encounter Summary ---
Demographics + + + | Address | [address] | | | [place] [address] | + + + | Home Phone [...] + +------+ + | Care Mental Health Tech Name | Role | Phone | [...] [address] | | | | | [place], | [place], | | | | | [place] [address] | [place] [address] | | | | | [phone] | | | | | | | [...] W | | | | | | [place], | | | | | | [place] [address] | | | | | | [phone] | | | | | | | | +--------+ + + + + | 11/20/ | Implant | Cardiology | Daljit Singletary, | Remote Device | | 2018 | Monitor | | [address] [facility] | Interrogation | | | | | [place], | (Primary Dx); | | | | | [place] [address] | Presence of | | | | | [phone] | permanent cardiac | | | | [...]
--- OUTSIDE RECORDS SUMMARY | ~2019-10-04 | XMS | Encounter Summary ---
Demographics + + + | Address | [address] | | | [place] [address] | + + + | Home Phone [...] Team Providers + +------+ + | Care Mint Wafer Depositor Name | Role | Phone | + [...] + + | 08/19/ | Telephone | [facility] | Silvia, | Other (patient | | 2016 | | CARDIOLOGY [address] | PARISA [place] [address] | having issues with | | | | [place], | [place], | high blood pressure) | | | | [place] [address] | [place] [address] | | | | | [phone] | [phone] | | | | | | | [...] W | | | | | | [place], | | | | | | [place] [address] | | | | | | [phone] | | | | | | | | +--------+ + + + + | 11/20/ | Implant | Cardiology | Daljit Singletary, | Remote Device | | 2019 | Monitor | | MD [address] | Interrogation | | | | | [place], | (Primary Dx); | | | | | [place] [address] | Presence of | | | | | [phone] | permanent cardiac | | | | [...]
--- OUTSIDE RECORDS SUMMARY | ~2019-10-04 | XMS | Encounter Summary ---
Demographics + + + | Address | [address] | | | [place] [address] | + + + | Home Phone [...] Providers + +------+ + | Care Wire Rigger Name | Role | Phone | + +------+ + PCP | Unavailable | + +------+ + Encounter Details +--------+ + + + + | Date | Type | Department | Care Team | Description | +--------+ + + + + | 06/23/ | [facility] | [facility] | Arthur Page MD | | | 2007 - | Encounter | [facility] | [address] [facility] | | | | | [address] [place] | [place] | | | 06/25/ | | [place] [address] | [id number] | | | 2007 | | [phone] | | | +--------+ + + + [...] | | | | | | [place] [address] | | | | | | [phone] | | | | | | | | +--------+ + + + + | 11/20/ | Implant | Cardiology | Daljit Singletary, | Remote Device | | 2019 | Monitor | | MD Chiquis Oro | Interrogation | | | | | [facility], | (Primary Dx); | | | | | [place] [address] | Presence of | | | | | [phone] | permanent cardiac | | | | [...]
--- OUTSIDE RECORDS SUMMARY | ~2019-10-04 | XMS | Encounter Summary ---
Demographics + + + | Address | [address] | | | [place] [address] | + + + | Home Phone [...] + +------+ + | Care Operating Room Assistant Name | Role | Phone | [...] Provider Unknown | | | | | [place], [place] | [phone] | | | | | [address] | | | | | | [phone] | | | +--------+ + + + [...] + + +---------+ + + | [place]-3 Fatty | CAPS, one capsule by | [...] | | | | | | | #[id number], exp 07/2016 | | | | | [...] | | | | | | [place] [address] | | | | | | [phone] | | | | | | | | +--------+ + + + + | 11/20/ | Implant | Cardiology | Daljit Singletary, | Remote Device | | 2018 | Monitor | | MD Chiquis Oro | Interrogation | | | | | [facility] [place], | (Primary Dx); | | | | | [place] [address] | Presence of | | | | | [phone] | permanent cardiac | | | | [...]
--- OUTSIDE RECORDS SUMMARY | ~2019-10-04 | XMS | Encounter Summary ---
Demographics + + + | Address | [address] | | | [place] [address] | + + + | Home Phone [...] + +------+ + | Care Business Systems Advisor Name | Role | Phone | [...] + | 02/27/ | Telephone | [facility] | Tiffin, | Chest Pain (Patient | | 2013 | | CARDIOLOGY [address] | Janeen, CEMENT SACK BREAKER [address] | having chest pain) | | | | [place], | [place], | | | | | [place] [address] | [place] [address] | | | | | [phone] | [phone] | | | | | | | [...] | | | | | [place], | | | | | | [place] [address] | | | | | | [phone] | | | | | | | | +--------+ + + + + | 11/20/ | Implant | Cardiology | Daljit Singletary, | Remote Device | | 2018 | Monitor | | [address] [place] | Interrogation | | | | | [place], | (Primary Dx); | | | | | [place] [address] | Presence of | | | | | [phone] | permanent cardiac | | | | [...]
--- OUTSIDE RECORDS SUMMARY | ~2019-10-04 | XMS | Encounter Summary ---
Demographics + + + | Address | [address] | | | [place] [address] | + + + | Home Phone [...] Team Providers + +------+ + | Care Tribal Delegate Name | Role | Phone | + [...] 2012 | | Conversion Location | [address] | | | | | [phone] | [address] [place], | | | | | | [place] [address] | | | | | | [phone] | | | | | | | [...] | | | | | | [place] [address] | | | | | | [phone] | | | | | | | | +--------+ + + + + | 11/20/ | Implant | Cardiology | Daljit Singletary, | Remote Device | | 2019 | Monitor | | 401 [facility] | Interrogation | | | | | [place], | (Primary Dx); | | | | | [place] [address] | Presence of | | | | | [phone] | permanent cardiac | | | | [...]
--- OUTSIDE RECORDS SUMMARY | ~2019-10-04 | XMS | Encounter Summary ---
Demographics + + + | Address | [address] | | | [place] [address] | + + + | Home Phone [...] Team Providers + +------+ + | Care Reel Tender Name | Role | Phone | [...] [address] | | | | | | [place], [place] | (Fax) | | | | | [address] | | | | | | [phone] | | | +--------+ + + + [...] | | | | | | [place] [address] | | | | | | [phone] | | | | | | | | +--------+ + + + + | 11/20/ | Implant | Cardiology | Daljit Singletary, | Remote Device | | 2018 | Monitor | | [facility] | Interrogation | | | | | [place], | (Primary Dx); | | | | | [place] [address] | Presence of | | | | | [phone] | permanent cardiac | | | | [...]
--- OUTSIDE RECORDS SUMMARY | ~2019-10-04 | XMS | Encounter Summary ---
Demographics + + + | Address | [address] | | | [place] [address] | + + + | Home Phone [...] Providers + +------+ + | Care Global Logistics Manager Name | Role | Phone | [...] + | 11/26/ | Telephone | [facility] | Silvia, | Appointment (Needs | | 2017 | | CARDIOLOGY [address] | [place] [address] | rescheduled) | | | | [place], | [place], | | | | | [place] [address] | [place] [address] | | | | | [phone] | [phone] | | | | | | | [...] W | | | | | | [place], | | | | | | [place] [address] | | | | | | [phone] | | | | | | | | +--------+ + + + + | 11/20/ | Implant | Cardiology | Daljit Singletary, | Remote Device | | 2018 | Monitor | | [address] [place] | Interrogation | | | | | [place], | (Primary Dx); | | | | | [place] [address] | Presence of | | | | | [phone] | permanent cardiac | | | | [...]
--- OUTSIDE RECORDS SUMMARY | ~2019-10-04 | XMS | Encounter Summary ---
Demographics + + + | Address | [address] | | | [place] [address] | + + + | Home Phone [...] Providers + +------+ + | Care Guide Changer Name | Role | Phone | [...] | Emmanuel E, MD | [address] | | | | | unspecified | [address] | [place], | | | | | type | [place], [place] | [place] | | | | | Abdominal | [address] [place] | [address] | | | | | cramping | [place], [place] | Phone: | | | | | Generalized | [address] | [phone] | | | | | abdominal | Phone: | Fax: | | | | | pain | [phone] | [phone] | | | | | Procedures | Fax: | | | | | | CT Abdomen | [phone] | | | | | | Pelvis [...] 2019 | | GASTROENTEROLOGY | [address] [place], [place] | (stomach cramps and | | | | [address] [place] | [address] [place], [place] | liquid stool) | | | | [address] [place], [place] | [address] | | | | | [address] | | | | | | [phone] | | | +--------+ + + + [...] | | | | | | [place] [address] | | | | | | [phone] | | | | | | | | +--------+ + + + + | 12/30/ | Implant | Cardiology | Daljit Singletary, | Remote Device | | 2019 | Monitor | | [facility] | Interrogation | | | | | [place], | (Primary Dx); | | | | | [place] [address] | Presence of | | | | | [phone] | permanent cardiac | | | | [...]
--- OUTSIDE RECORDS SUMMARY | ~2019-10-04 | XMS | Encounter Summary ---
Demographics + + + | Address | [address] | | | [place] [address] | + + + | Home Phone [...] Providers + +------+ + | Care Facility Planner Name | Role | Phone | [...] Eva R[place]SE | | | | | [place], [place] | [address] | | | | | [address] | [place] [address] | | | | | [phone] | [phone] | | | | | | | [...] | | | | | | [place] [address] | | | | | | [phone] | | | | | | | | +--------+ + + + + | 11/20/ | Implant | Cardiology | Daljit Singletary, | Remote Device | | 2018 | Monitor | | [facility] | Interrogation | | | | | [place], | (Primary Dx); | | | | | [place] [address] | Presence of | | | | | [phone] | permanent cardiac | | | | [...] documented in this encounter Results External Lab: [facility] (11/25/2018 12:04 PM PST) + + + [...]
--- OUTSIDE RECORDS SUMMARY | ~2019-10-04 | XMS | Encounter Summary ---
Demographics + + + | Address | [address] | | | [place] [address] | + + + | Home Phone [...] Providers + +------+ + | Care Brush Material Preparer Name | Role | Phone | [...] [address] | | | | | [place], | [place], | | | | | [place] [address] | [place] [address] | | | | | [phone] | [phone] | | | | | | | [...] W | | | | | | [place], | | | | | | [place] [address] | | | | | | [phone] | | | | | | | | +--------+ + + + + | 11/20/ | Implant | Cardiology | Daljit Singletary, | Remote Device | | 2018 | Monitor | | [address] [place] | Interrogation | | | | | [place], | (Primary Dx); | | | | | [place] [address] | Presence of | | | | | [phone] | permanent cardiac | | | | [...] [address] | [place] | [phone] | | [facility] | | [address] | | | - LABORATORY | | [...]
--- OUTSIDE RECORDS SUMMARY | ~2019-10-04 | XMS | Encounter Summary ---
Demographics + + + | Address | [address] | | | [place] [address] | + + + | Home Phone [...] Providers + +------+ + | Care Concrete Technician Name | Role | Phone | + +------+ + PCP | Unavailable | + +------+ + Encounter Details +--------+ + + + + | Date | Type | Department | Care Team | Description | +--------+ + + + + | 09/08/ | [facility] | [facility] | Naresh Mckeon | | | 1998 | Encounter | MED CTR SLEEP | MD Chaya [address] | | | | | CENTER [address] | [place] | | | | | [place] | [place] [address] | | | | | [address] | [phone] | | | | | [phone] | | | +--------+ + + + [...] | | | | | | [place] [id number] | | | | | | [phone] | | | | | | | | +--------+ + + + + | 11/20/ | Implant | Cardiology | Daljit Singletary, | Remote Device | | 2019 | Monitor | | MD Chiquis Oro | Interrogation | | | | | [place], | (Primary Dx); | | | | | [place] [id number] | Presence of | | | | | [phone] | permanent cardiac | | | | [...]
--- OUTSIDE RECORDS SUMMARY | ~2019-10-04 | XMS | Encounter Summary ---
Demographics + + + | Address | [address] | | | [place] [address] | + + + | Home Phone [...] Providers + +------+ + | Care Parts Counterperson Name | Role | Phone | + [...] [place], | | | | | | [place] [address] | | | | | | [phone] | | | +--------+ + + + [...] | | | | | | [place] [address] | | | | | | [phone] | | | | | | | | +--------+ + + + + | 11/20/ | Implant | Cardiology | Daljit Singletary, | Remote Device | | 2019 | Monitor | | [address] [facility] | Interrogation | | | | | [place], | (Primary Dx); | | | | | [place] [address] | Presence of | | | | | [phone] | permanent cardiac | | | | [...]
--- OUTSIDE RECORDS SUMMARY | ~2019-10-04 | XMS | Encounter Summary ---
Demographics + + + | Address | [address] | | | [place] [address] | + + + | Home Phone [...] Providers + +------+ + | Care Rail Signal Mechanic Name | Role | Phone | + +------+ + | Kirk French MD | PCP | | + +------+ + Encounter Details +--------+ + + + + | Date | Type | Department | Care Team | Description | +--------+ + + + + | 11/16/ | Hospital | [facility] | Kirk French | Aneurysm (HCC) | | 2017 | Encounter | MED CTR ULTRASOUND | D, MD [address] | | | | | [address] [place] | [address] | | | | | [place], [place] | [place] [address] | | | | | [address] | [phone] | | | | | [phone] | | | | | | | [...] + + + +---------+ + + | [place]-3 Fatty | CAPS, one capsule by | [...] | | | | | | [place] [address] | | | | | | [phone] | | | | | | | | +--------+ + + + + | 11/20/ | Implant | Cardiology | Daljit Singletary, | Remote Device | | 2019 | Monitor | | [address] [facility] | Interrogation | | | | | [place], | (Primary Dx); | | | | | [place] [address] | Presence of | | | | | [phone] | permanent cardiac | | | | [...]
--- OUTSIDE RECORDS SUMMARY | ~2019-10-04 | XMS | Encounter Summary ---
Demographics + + + | Address | [address] | | | [place] [address] | + + + | Home Phone [...] Team Providers + +------+ + | Care Subwarehouse Supervisor Name | Role | Phone | + +------+ + PCP | Unavailable | + +------+ + Encounter Details +--------+ + + + + | Date | Type | Department | Care Team | Description | +--------+ + + + + | 09/12/ | Hospital | [facility] | | | | 1993 | Encounter | MED CTR EMERGENCY | | | | | | CENTER [address] | | | | | | [place] | | | | | | [address] | | | | | | [phone] | | | +--------+ + + + [...] | | | | | | [place] [address] | | | | | | [phone] | | | | | | | | +--------+ + + + + | 11/20/ | Implant | Cardiology | Daljit Singletary, | Remote Device | | 2018 | Monitor | | [address] [facility] | Interrogation | | | | | [place], | (Primary Dx); | | | | | [place] [address] | Presence of | | | | | [phone] | permanent cardiac | | | | [...]
--- OUTSIDE RECORDS SUMMARY | ~2019-10-04 | XMS | Encounter Summary ---
Demographics + + + | Address | [address] | | | [place] [address] | + + + | Home Phone [...] Providers + +------+ + | Care Centrifugal Wax Molder Name | Role | Phone | [...] [place] | | | | | | [address] | | | | | | [phone] | | | | | | | [...] | | | | | | [place] [address] | | | | | | [phone] | | | | | | | | +--------+ + + + + | 11/20/ | Implant | Cardiology | Daljit Singletary, | Remote Device | | 2018 | Monitor | | [address] [facility] | Interrogation | | | | | [address] [place], | (Primary Dx); | | | | | [place] [address] | Presence of | | | | | [phone] | permanent cardiac | | | | [...]
--- OUTSIDE RECORDS SUMMARY | ~2019-10-04 | XMS | Encounter Summary ---
Demographics + + + | Address | [address] | | | [place] [address] | + + + | Home Phone [...] Team Providers + +------+ + | Care Psychotherapist Social Worker Name | Role | Phone | + +------+ + | Kirk French MD | PCP | | + +------+ + Encounter Details +--------+ + + + + | Date | Type | Department | Care Team | Description | +--------+ + + + + | 12/24/ | Anesthesia | [facility] | Jarett Barakat | | | 2018 | Event | MED CTR MP INTRA OP | P, MD [address] | | | | | [address] | [place], [place] | | | | | [place], [place] | [address] | | | | | [address] | [phone] | | | | | [phone] | | | | | | | Arthur Wesley, | | | | | | [address] | | | | | | [place], [place] | | | | | | [address] | | | | | | | [...] 12/24/17 1435 by | | eral | ssrc-sra-[id number] catheter system; | Desmond Teresa RN | [...] W | | | | | | [place], | | | | | | [place] [address] | | | | | | [phone] | | | | | | | | +--------+ + + + + | 11/20/ | Implant | Cardiology | Daljit Singletary, | Remote Device | | 2018 | Monitor | | [facility] | Interrogation | | | | | [place], | (Primary Dx); | | | | | [place] [address] | Presence of | | | | | [phone] | permanent cardiac | | | | [...]
--- OUTSIDE RECORDS SUMMARY | ~2019-10-04 | XMS | Encounter Summary ---
Demographics + + + | Address | [address] | | | [place] [address] | + + + | Home Phone [...] Providers + +------+ + | Care Salt Washer Name | Role | Phone | [...] + + | 08/23/ | Telephone | [facility] | AnshujohnsoncherelleDaljit, | Other (edema is | | 2015 | | CARDIOLOGY [address] | MD [address] [place] | blood clots) | | | | [place], | [place], | | | | | [place] [address] | [place] [address] | | | | | [phone] | [phone] | | | | | | | [...] | | | | | | [place] [address] | | | | | | [phone] | | | | | | | | +--------+ + + + + | 11/20/ | Implant | Cardiology | Daljit Singletary, | Remote Device | | 2018 | Monitor | | [facility] | Interrogation | | | | | [facility], | (Primary Dx); | | | | | [place] [address] | Presence of | | | | | [phone] | permanent cardiac | | | | [...]
--- OUTSIDE RECORDS SUMMARY | ~2019-10-04 | XMS | Encounter Summary ---
Demographics + + + | Address | [address] | | | [place] [address] | + + + | Home Phone [...] Team Providers + +------+ + | Care Blow Off Worker Name | Role | Phone [...] W | Dx) | | | | [place] [address] | [address] [place] | | | | | [place], [place] | [place] [address] | | | | | [address] | [phone] | | | | | [phone] | | | +--------+ + + + [...] + + + +---------+ + + | [place]-3 Fatty | CAPS, one capsule by | [...] | | | | | | [place] [address] | | | | | | [phone] | | | | | | | | +--------+ + + + + | 11/20/ | Implant | Cardiology | Daljit Singletary, | Remote Device | | 2019 | Monitor | | MD [address] [facility] | Interrogation | | | | | [place], | (Primary Dx); | | | | | [place] [address] | Presence of | | | | | [phone] | permanent cardiac | | | | [...] W?MRN: | | | | | | [id number] | | | [id number] | | | his | | | [...] | | | ent/60 | | | [id number] | | | -5586- | | | [...] | | | St. | | | [place] | | | y H. | | [...] | | | St. | | | [place] | | | y H. | | [...] | | | St. | | | [place] | | | y H. | | [...] | | | St. | | | [place] | | | y H. | | [...] | | | St. | | | [place] | | | y | | | [...] | | | ext. | | | [address] | | | or go | | [...] + | [facility] | [address] | [place] | [phone] | | [facility] | | [address] | | | - LABORATORY | | [...] + | [facility] | [address] | [place] | [phone] | | [facility] | | [address] | | | - LABORATORY | | [...] | | MEDICAL | | | | mL/min/1.84r2Zfrd than | | CENTER - | | [...] [address] | [place] | [phone] | | [facility] | | [address] | | | - LABORATORY | | [...] [address] | [place] | [phone] | | [facility] | | [address] | | | - LABORATORY | | | | + + + + + documented in this encounter Visit Diagnoses + + | Diagnosis | + + | Bronchitis - Primary Bronchitis, not specified as acute or chronic | + + documented in this encounter"
--- OUTSIDE RECORDS SUMMARY | ~2019-10-04 | XMS | Encounter Summary ---
Demographics + + + | Address | [address] | | | [place] [address] | + + + | Home Phone [...] + + | 12/23/ | Emergency | [facility] | Cristal Alexander, | Chronic neck pain; | | 2015 | | MEDICAL CENTER | DO [address] | Headache(784.0) | | | | EMERGENCY CENTER | [place] [address] | | | | | [address] | [phone] | | | | | [place], [place] | | | | | | [address] | | | | | | [phone] | | | +--------+ + + + [...] + + + +---------+ + + | [place]-3 Fatty | CAPS, one capsule by | [...] | | | | | | | #[id number], exp 07/2016 | | | | | [...] | | | | | | [place] [address] | | | | | | [phone] | | | | | | | | +--------+ + + + + | 11/20/ | Implant | Cardiology | Daljit Singletary, | Remote Device | | 2018 | Monitor | | [facility] | Interrogation | | | | | [place], | (Primary Dx); | | | | | [place] [address] | Presence of | | | | | [phone] | permanent cardiac | | | | [...] Conversion - 07/07/2019 5:05 AM PDT PINA [id number] years MaleCT | | CERVICAL SPINE WO [...]
--- OUTSIDE RECORDS SUMMARY | ~2019-10-04 | XMS | Encounter Summary ---
Demographics + + + | Address | [address] | | | [place] [address] | + + + | Home Phone [...] Providers + +------+ + | Care Unit Assembler Name | Role | Phone | [...] Refill | | 2011 | | [facility]IC[facility] | DO [address] | | | | | [address] | [place] | | | | | [place] | [address] | | | | | [address] | | | | | | [phone] | | | +--------+--------+ + + + [...] | | | | | | [place] [address] | | | | | | [phone] | | | | | | | | +--------+ + + + + | 11/20/ | Implant | Cardiology | Daljit Singletary, | Remote Device | | 2019 | Monitor | | [address] [facility] | Interrogation | | | | | [place] [place], | (Primary Dx); | | | | | [place] [address] | Presence of | | | | | [phone] | permanent cardiac | | | | [...]
--- OUTSIDE RECORDS SUMMARY | ~2019-10-04 | XMS | Encounter Summary ---
Demographics + + + | Address | [address] | | | [place] [address] | + + + | Home Phone [...] Providers + +------+ + | Care Supervisor Beet End Name | Role | Phone | + +------+ + PCP | Unavailable | + +------+ + Encounter Details +--------+ + + + + | Date | Type | Department | Care Team | Description | +--------+ + + + + | 10/19/ | Hospital | [facility] | | | | 1992 | Encounter | MED CTR EMERGENCY | | | | | | CENTER [address] | | | | | | [place] | | | | | | [address] | | | | | | [phone] | | | +--------+ + + + [...] | | | | | | [place] [address] | | | | | | [phone] | | | | | | | | +--------+ + + + + | 11/20/ | Implant | Cardiology | Daljit Singletary, | Remote Device | | 2018 | Monitor | | [facility] | Interrogation | | | | | [place], | (Primary Dx); | | | | | [place] [address] | Presence of | | | | | [phone] | permanent cardiac | | | | [...]
--- OUTSIDE RECORDS SUMMARY | ~2019-10-04 | XMS | Encounter Summary ---
Demographics + + + | Address | [address] | | | [place] [address] | + + + | Home Phone [...] Team Providers + +------+ + | Care Stereotype Caster Name | Role | Phone | + [...] + | 03/24/ | Telephone | [facility] | [place], | Other (chest pain) | | 2018 | | CARDIOLOGY [address] | [place] [address] | | | | | [place], | [place], | | | | | [place] [address] | [place] [address] | | | | | [phone] | [phone] | | | | | | | [...] | | | | | | [place] [address] | | | | | | [phone] | | | | | | | | +--------+ + + + + | 11/20/ | Implant | Cardiology | Daljit Singletary, | Remote Device | | 2019 | Monitor | | MD [address] | Interrogation | | | | | [address] [place], | (Primary Dx); | | | | | [place] [address] | Presence of | | | | | [phone] | permanent cardiac | | | | [...]
--- OUTSIDE RECORDS SUMMARY | ~2019-10-04 | XMS | Encounter Summary ---
Demographics + + + | Address | [address] | | | [place] [address] | + + + | Home Phone [...] Providers + +------+ + | Care Research Professor Name | Role | Phone | + +------+ + PCP | Unavailable | + +------+ + Encounter Details +--------+ + + + + | Date | Type | Department | Care Team | Description | +--------+ + + + + | 11/05/ | [facility] | [facility] | Naresh Mckeon | | | 2009 | Encounter | MED CTR SLEEP | MD Chaya [address] | | | | | CENTER [address] | [place] | | | | | [place] | [place] [address] | | | | | [address] | [phone] | | | | | [phone] | | | +--------+ + + + [...] | | | | | | [place] [address] | | | | | | [phone] | | | | | | | | +--------+ + + + + | 11/20/ | Implant | Cardiology | Daljit Singletary, | Remote Device | | 2019 | Monitor | | MD [address] | Interrogation | | | | | [facility], | (Primary Dx); | | | | | [place] [address] | Presence of | | | | | [phone] | permanent cardiac | | | | [...]
--- OUTSIDE RECORDS SUMMARY | ~2019-10-04 | XMS | Encounter Summary ---
Demographics + + + | Address | [address] | | | [place] [address] | + + + | Home Phone [...] Team Providers + +------+ + | Care Cryptologic Linguist Name | Role | Phone | + +------+ + PCP | Unavailable | + +------+ + Encounter Details +--------+ + + + + | Date | Type | Department | Care Team | Description | +--------+ + + + + | 09/12/ | Hospital | [facility] | | | | 1993 | Encounter | MED CTR EMERGENCY | | | | | | CENTER [address] | | | | | | [place] | | | | | | [address] | | | | | | [phone] | | | +--------+ + + + [...] | | | | | | [place] [address] | | | | | | [phone] | | | | | | | | +--------+ + + + + | 11/20/ | Implant | Cardiology | Daljit Singletary, | Remote Device | | 2018 | Monitor | | [address] [facility] | Interrogation | | | | | [facility], | (Primary Dx); | | | | | [place] [address] | Presence of | | | | | [phone] | permanent cardiac | | | | [...]
--- OUTSIDE RECORDS SUMMARY | ~2019-10-04 | XMS | Encounter Summary ---
Demographics + + + | Address | [address] | | | [place] [address] | + + + | Home Phone [...] Providers + +------+ + | Care Kettle Coordinator Name | Role | Phone | [...] [address] | | | | [place], | [place], | | | | | [place] [address] | [place] [address] | | | | | [phone] | | | | | | | [...] | | | | | | [place] [address] | | | | | | [phone] | | | | | | | | +--------+ + + + + | 11/20/ | Implant | Cardiology | Daljit Singletary, | Remote Device | | 2018 | Monitor | | [facility] [address] | Interrogation | | | | | [facility], | (Primary Dx); | | | | | [place] [address] | Presence of | | | | | [phone] | permanent cardiac | | | | [...]
--- OUTSIDE RECORDS SUMMARY | ~2019-10-04 | XMS | Encounter Summary ---
Demographics + + + | Address | [address] | | | [place] [address] | + + + | Home Phone [...] Providers + +------+ + | Care Sound Designer Name | Role | Phone | [...] 2019 | | GASTROENTEROLOGY | [address], [place] | | | | | [address] [place] | [address] [place], [place] | | | | | [address] [place], [place] | [address] | | | | | [address] | | | | | | [phone] | | | +--------+ + + + [...] | | | | | | [place] [address] | | | | | | [phone] | | | | | | | | +--------+ + + + + | 11/20/ | Implant | Cardiology | Daljit Singletary, | Remote Device | | 2019 | Monitor | | MD [address] | Interrogation | | | | | [facility] [place], | (Primary Dx); | | | | | [place] [address] | Presence of | | | | | [phone] | permanent cardiac | | | | [...]
--- OUTSIDE RECORDS SUMMARY | ~2019-10-04 | XMS | Encounter Summary ---
Demographics + + + | Address | [address] | | | [place] [address] | + + + | Home Phone [...] Providers + +------+ + | Care Campus Aide Name | Role | Phone | [...] 2017 | | GASTROENTEROLOGY | [address], [place] | what he can eat | | | | [address] [place] | [address] [place], [place] | today) | | | | [address] [place], [place] | [address] | | | | | [address] | | | | | | [phone] | | | +--------+ + + + [...] | | | | | | [place] [address] | | | | | | [phone] | | | | | | | | +--------+ + + + + | 11/20/ | Implant | Cardiology | Daljit Singletary, | Remote Device | | 2018 | Monitor | | MD Chiquis Oro | Interrogation | | | | | [facility] [place], | (Primary Dx); | | | | | [place] [address] | Presence of | | | | | [phone] | permanent cardiac | | | | [...]
--- OUTSIDE RECORDS SUMMARY | ~2019-10-04 | XMS | Encounter Summary ---
Demographics + + + | Address | [address] | | | [place] [address] | + + + | Home Phone [...] Providers + +------+ + | Care Concrete Pourer Name | Role | Phone | [...] | | | | | region | [address] | | | | | | Procedures | [address] | | | | | | [address] | [place], [place] | | | | | | Myelography | [address] | | | | | | Lumbar Spine | Phone: | | | | | | | [phone] | | | | | | | Fax: | | | | | | | [phone] | | +--------+--------+ + + + + [...] | | | | | region | [address] | | | | | | Procedures | [address] | | | | | | CT | [place], [place] | | | | | | Myelography | [address] | | | | | | Lumbar Spine | Phone: | | | | | | | [phone] | | | | | | | Fax: | | | | | | | [phone] | | +--------+--------+ + + + + Encounter Details +--------+ + + + + | Date | Type | Department | Care Team | Description | +--------+ + + + + | 04/07/ | Hospital | [facility] | Pia Akhtar | Spinal stenosis, | | 2016 | Encounter | MED CTR [address] | MD [address] | lumbar region | | | | [place], | [address] | | | | | [place] [address] | [place] [address] | | | | | [phone] | [phone] | | | | | | | [...] + + + +---------+ + + | Randall-3 Fatty | CAPS, one capsule by | [...] W | | | | | | [place], | | | | | | [place] [address] | | | | | | [phone] | | | | | | | | +--------+ + + + + | 11/20/ | Implant | Cardiology | Daljit Singletary, | Remote Device | | 2018 | Monitor | | [address] [facility] | Interrogation | | | | | [place], | (Primary Dx); | | | | | [place] [address] | Presence of | | | | | [phone] | permanent cardiac | | | | [...]
--- OUTSIDE RECORDS SUMMARY | ~2019-10-04 | XMS | Encounter Summary ---
Demographics + + + | Address | [address] [place] [address] | | | [place] [address] | + + + | Home Phone [...] [place] | | | | | [address] | | + + + + + Care Team Providers + +------+ + | Care Head Gauge Unit Operator Name | Role | Phone | [...] as of this encounter Progress Notes Interface, Market Director In - 07/19/2006 3:05 AM PDTCLINIC DATE: 06/13/2002 [facility] REFERRING PHYSICIAN: Eugene Vera D.O. [address] [place] [address] Mr. Sanchez is a new patient. He [...] proceed. Martell Allen M.D. ELIZABETH / KATTY [id number] / [id number] / [id number] / [id number] cc: Eugene Vera D.O. [address] [place] [address]Rahweiv[place]kce signed by Interface, Market Director In at 07/19/2006 3:0 5 AM PDTdocumented in this encounter Plan of Treatment Not on filedocumented as of this encounter Visit Diagnoses Not on filedocumented in this encounter
--- OUTSIDE RECORDS SUMMARY | ~2019-10-04 | XMS | Encounter Summary ---
Demographics + + + | Address | [address] | | | [place] [address] | + + + | Home Phone [...] Providers + +------+ + | Care Timber Packer Name | Role | Phone | [...] + | 01/30/ | Telephone | [facility] | Daljit Singletary, | Other | | 2019 | | CARDIOLOGY [address] | MD [address] | | | | | [place], | [place], | | | | | [place] [address] | [place] [address] | | | | | [phone] | [phone] | | | | | | | [...] W | | | | | | [place] [place], | | | | | | [place] [address] | | | | | | [phone] | | | | | | | | +--------+ + + + + | 11/20/ | Implant | Cardiology | Daljit Singletary, | Remote Device | | 2018 | Monitor | | MD [address] | Interrogation | | | | | [place], | (Primary Dx); | | | | | [place] [address] | Presence of | | | | | [phone] | permanent cardiac | | | | [...] 05/02/2019, Expires: | | | | | [place] [facility] | 01/30/2020 | | | | [...] 05/02/2019, Expires: | | | | | [place] [facility] | 01/31/2020 | | | | [...] [place] heart without | | angina pectoris - Primary | + + | Hyperlipidemia, mixed Mixed hyperlipidemia | + + documented in this encounter"
--- OUTSIDE RECORDS SUMMARY | ~2019-10-04 | XMS | Encounter Summary ---
Demographics + + + | Address | [address] | | | [place] [address] | + + + | Home Phone [...] Providers + +------+ + | Care Railroad Crane Operator Name | Role | Phone [...] [address] | | | | | [place], | [place], | | | | | [place] [address] | [place] [address] | | | | | [phone] | [phone] | | | | | | | [...] | | | | | | [place] [id number] | | | | | | [phone] | | | | | | | | +--------+ + + + + | 11/20/ | Implant | Cardiology | Daljit Singletary, | Remote Device | | 2018 | Monitor | | MD [address] [facility] [address] | Interrogation | | | | | [address] [place], | (Primary Dx); | | | | | [place] [id number] | Presence of | | | | | [phone] | permanent cardiac | | | | [...]
--- OUTSIDE RECORDS SUMMARY | ~2019-10-04 | XMS | Encounter Summary ---
Demographics + + + | Address | [address] | | | [place] [address] | + + + | Home Phone [...] Team Providers + +------+ + | Care Exchange Engineer Name | Role | Phone | [...] CARDIOLOGY [address] | MD [address] [place] | Interrogation | | | | [place], | [place], | (Primary Dx); | | | | [place] [id number] | [place] [id number] | Pacemaker; | | | | [phone] | [phone] | Sinoatrial node | | | | [...] | | | | | | [place] [id number] | | | | | | [phone] | | | | | | | | +--------+ + + + + | 11/20/ | Implant | Cardiology | Daljit Singletary, | Remote Device | | 2019 | Monitor | | MD 401 [facility] | Interrogation | | | | | [place], | (Primary Dx); | | | | | [place] [address] | Presence of | | | | | [phone] | permanent cardiac | | | | [...] remote PDF scanned into | | | [facility] for remote interrogation results. Data collected by [...]
--- OUTSIDE RECORDS SUMMARY | ~2019-10-04 | XMS | Encounter Summary ---
Demographics + + + | Address | [address] | | | [place] [address] | + + + | Home Phone [...] Team Providers + +------+ + | Care Installers Mechanical Name | Role | Phone | + [...] + + | 02/15/ | [facility] | [facility] | Jay Cohn PA | DIDIER (obstructive | | 2012 | Visit | SLEEP DISORDER [address] | [address] | sleep apnea) | | | | [address] [place] | [place] | (Primary Dx) | | | | [place] [address] | [address] | | | | | [phone] | | | +--------+---------+ + + + [...] AM PDTGo to [facility] for replacement equipment including: Nasal pillows or [...] pillows obtained from: [facility] [place] pressure is: 13 cm CPAP download shows [...] to go to [facility] in [place] to replace his equipment, but it had [...] to go to [facility] in [place] to g et a new mask and filter. He is to work toward wearing his CPAP 100% of the time he is asle ep. I will follow up again in 1 month, sooner prn. Fifteen minutes were spent [id number], wi th the majority of time spent [...] W | | | | | | [place], | | | | | | [place] [address] | | | | | | [phone] | | | | | | | | +--------+ + + + + | 11/20/ | Implant | Cardiology | Daljit Singletary, | Remote Device | | 2019 | Monitor | | [address] | Interrogation | | | | | [place], | (Primary Dx); | | | | | [place] [address] | Presence of | | | | | [phone] | permanent cardiac | | | | [...]
--- OUTSIDE RECORDS SUMMARY | ~2019-10-04 | XMS | Encounter Summary ---
Demographics + + + | Address | [address] | | | [place] [address] | + + + | Home Phone [...] Providers + +------+ + | Care Supervisor Painting Name | Role | Phone | + [...] [address] | | | | | [address] | [place] | | | | | [phone] | [address] | | | | | | | [...] | | | | | | [place] [address] | | | | | | [phone] | | | | | | | | +--------+ + + + + | 11/20/ | Implant | Cardiology | Daljit Singletary, | Remote Device | | 2018 | Monitor | | MD Sim [facility] | Interrogation | | | | | [place], | (Primary Dx); | | | | | [place] [address] | Presence of | | | | | [phone] | permanent cardiac | | | | [...]
--- OUTSIDE RECORDS SUMMARY | ~2019-10-04 | XMS | Encounter Summary ---
Demographics + + + | Address | [address] | | | [place] [address] | + + + | Home Phone [...] Team Providers + +------+ + | Care Paraplanner Name | Role | Phone | + [...] [address] | | | | | | [place], [place] | (Fax) | | | | | [address] | | | | | | [phone] | | | +--------+ + + + [...] | | | | | | [place] [address] | | | | | | [phone] | | | | | | | | +--------+ + + + + | 11/20/ | Implant | Cardiology | Daljit Singletary, | Remote Device | | 2018 | Monitor | | [address] [facility] | Interrogation | | | | | [place], | (Primary Dx); | | | | | [place] [address] | Presence of | | | | | [phone] | permanent cardiac | | | | [...]
--- OUTSIDE RECORDS SUMMARY | ~2019-10-04 | XMS | Encounter Summary ---
Demographics + + + | Address | [address] | | | [place] [address] | + + + | Home Phone [...] Providers + +------+ + | Care Distribution Coordinator Name | Role | Phone | [...] | (Fax) | | | | | [address] | | | | | | [phone] | | | +--------+ + + + [...] | | | | | | [place] [address] | | | | | | [phone] | | | | | | | | +--------+ + + + + | 11/20/ | Implant | Cardiology | Daljit Singletary, | Remote Device | | 2018 | Monitor | | 401 [facility] | Interrogation | | | | | [place], | (Primary Dx); | | | | | [place] [address] | Presence of | | | | | [phone] | permanent cardiac | | | | [...]
--- OUTSIDE RECORDS SUMMARY | ~2019-10-04 | XMS | Encounter Summary ---
Demographics + + + | Address | [address] | | | [place] [address] | + + + | Home Phone [...] Providers + +------+ + | Care Water Well Driller Name | Role | Phone | [...] | | | DDD | Scotty C, LEGAL RESEARCHER | [facility] | | | | | (degenerativ | [address] [facility] | | | | | e disc | [facility] | MEDICAL | | | | | disease), | [address] | CENTER [address] | | | | | lumbar | B | [place] | | | | | Chronic | [place], [place] | [place], | | | | | left-sided | [address] | [place] [address] | | | | | low back | Phone: | Phone: | | | | | pain with | [phone] | [phone] | | | | | left-sided | Fax: | Fax: | | | | | sciatica | [phone] | [phone] | | | | | History of [...] | | | DDD | Scotty C, LEGAL RESEARCHER | [address] [place] | | | | | (degenerativ | [address] | [place], | | | | | e disc | [facility] | [place] [address] | | | | | disease), | [address]IVE [address] | Phone: | | | | | lumbar | B | [phone] | | | | | Chronic | [place], [place] | Fax: | | | | | left-sided | [address] | [phone] | | | | | low back | Phone: | | | | | | pain with | [phone] | | | | | | left-sided | Fax: | | | | | | sciatica | [phone] | | | | | | History [...] + | 07/01/ | Hospital | [facility] | Scotty Galdamez, | DDD (degenerative | | 2018 | Encounter | MED CTR [address] | LEGAL RESEARCHER [address] [facility] | disc disease), | | | | [place], | [address] | lumbar; Chronic | | | | [place] [address] | [place] [address] | left-sided low back | | | | [phone] | [phone] | pain with left-sided | | | [...] + + + +---------+ + + | Hematite-3 Fatty | CAPS, one capsule by | [...] | | | | | | [place] [address] | | | | | | [phone] | | | | | | | | +--------+ + + + + | 11/20/ | Implant | Cardiology | AnshujohnsoncherelleShaistapawanotto, | Remote Device | | 2019 | Monitor | | 401 [facility] | Interrogation | | | | | [address] [place], | (Primary Dx); | | | | | [place] [address] | Presence of | | | | | [phone] | permanent cardiac | | | | [...]
--- OUTSIDE RECORDS SUMMARY | ~2019-10-04 | XMS | Encounter Summary ---
Demographics + + + | Address | [address] | | | [place] [address] | + + + | Home Phone [...] Providers + +------+ + | Care Poultry Boner Name | Role | Phone | [...] Refill | | 2012 | | [facility]IC[facility] | DO [address] | | | | | [address] | [place] | | | | | [place] | [address] | | | | | [address] | | | | | | [phone] | | | +--------+--------+ + + + [...] | | | | | | [place], | | | | | | [place] [address] | | | | | | [phone] | | | | | | | | +--------+ + + + + | 11/20/ | Implant | Cardiology | Daljit Singletary, | Remote Device | | 2018 | Monitor | | 401 [facility] | Interrogation | | | | | [place], | (Primary Dx); | | | | | [place] [address] | Presence of | | | | | [phone] | permanent cardiac | | | | [...]
--- OUTSIDE RECORDS SUMMARY | ~2019-10-04 | XMS | Encounter Summary ---
Demographics + + + | Address | [address] | | | [place] [address] | + + + | Home Phone [...] Providers + +------+ + | Care Cone Winder Name | Role | Phone | [...] + + | 05/15/ | Office | [facility] UR[facility]Y | Matthew Uriarte | Kidney stones | | 2019 | Visit | [address] | MD [address]aw[address] | (Primary Dx) | | | | [place], [place] | [place], [place] | | | | | [address] | [address] | | | | | [phone] | | | +--------+---------+ + + + [...] Medtronic Peptic ulcer disease Premature ventricular contraction [facility] health care 06/26/2013 LAST PSA:12/16/2010 RESULT:0.14 [...] N/A 01/25/2019 Procedure: CV Cor Angio; Surgeon: Dalijt Singletary MD; Location: [facility] [...] 911, Disp: 100 ta blet, Rfl: 3 Kremlin-3 Fatty Acids (SALMON OIL-1000 PO), CAPS, one [...] pH, Urine 8.0 5.0 - 8.0 Specific [place] 1.008 1.001 - 1.030 Protein, Urine Negative [...] have not thoroughly proofread this note, and payroll secretary errors are very likely to occur. CC: [...] W | | | | | | [place], | | | | | | [place] [address] | | | | | | [phone] | | | | | | | | +--------+ + + + + | 11/20/ | Implant | Cardiology | Daljit Singletary, | Remote Device | | 2018 | Monitor | | [address] [facility] [place] | Interrogation | | | | | [place], | (Primary Dx); | | | | | [place] [address] | Presence of | | | | | [phone] | permanent cardiac | | | | [...]
--- OUTSIDE RECORDS SUMMARY | ~2019-10-04 | XMS | Encounter Summary ---
Demographics + + + | Address | [address] | | | [place] [address] | + + + | Home Phone [...] Team Providers + +------+ + | Care Seal Mixing Operator Name | Role | Phone | [...] | Aneurysmal | Silvia, | [address] | | | | | dilatation | PARISA Solis | [place], | | | | | (HCC) | [address] | [place] | | | | | Procedures | [place] | [address] | | | | | ECHO | [place], | Phone: | | | | | Complete | [place] | [phone] | | | | | | [address] | Fax: | | | | | | Phone: | [phone] | | | | | | [phone] | | | | | | | Fax: | | | | | | | [phone] | | +--------+--------+ + + + + Encounter Details +--------+ + + + + | Date | Type | Department | Care Team | Description | +--------+ + + + + | 11/16/ | Orders Only | [facility] [place] | [place], | Aneurysmal | | 2017 | | CARDIOLOGY [address] | PARISA [place]is [address] | dilatation (HCC) | | | | [place], | [place], | (Primary Dx) | | | | [place] [address] | [place] [address] | | | | | [phone] | [phone] | | | | | | | [...] W | | | | | | [place], | | | | | | [place] [address] | | | | | | [phone] | | | | | | | | +--------+ + + + + | 11/20/ | Implant | Cardiology | Sydni Singletary, | Remote Device | | 2018 | Monitor | | [address] [place] | Interrogation | | | | | [place], | (Primary Dx); | | | | | [place] [address] | Presence of | | | | | [phone] | permanent cardiac | | | | [...] Room Number SARAH Patient | | | [id number] Date of Study 11/16/2017 Number | | | Visit Number [id number] | | | Referring Physician GURJIT TROY Number | | | ELIZABETHANGELIA SOLIS Date | | | of 1960 Load Checker ROMAINE | | | MARISSA TIPTON Age 57 year(s) Interpreting | | | GURJIT TROY | | | Events Traffic Controller SYDNI SINGLETARY, | | | | | | Gender Male Nurse | | | Stress Digital Coordinator Procedure Type of | | | Study [...] | | | EF | | | Rzgalcgca51% Left Ventricle Diastolic Dimension: 5.12 cm | [...] Volume: 46.33 ml | | | EF Tbogdioku75% | | | | | | Left [...] BARRY Room Number SARAH | | Patient [id number] Date of Study 11/16/2017 Number Visit Number | | [id number] Referring Physician GURJIT TROY | | Number NORMA MCLAUGHLINN Date of | | 1960 Load Checker ROMAINE TIPTON RDCS Age 57 year(s) | | Interpreting GURJIT TROY Events Traffic Controller | | SYDNI SINGLETARY MD | | [...] LA Volume: 46.33 ml | | EF Zkwlskswz73% Left Ventricle Diastolic Dimension: 5.12 cm Systolic [...] LA Volume: 46.33 ml | | EF Cnmmwmxik02% | | | | Left Ventricle | [...]
--- OUTSIDE RECORDS SUMMARY | ~2019-10-04 | XMS | Encounter Summary ---
Demographics + + + | Address | [address] | | | [place] [address] | + + + | Home Phone [...] Providers + +------+ + | Care Belt Loop Machine Operator Name | Role | Phone [...] Provider Unknown | | | | | [place], [place] | [phone] | | | | | [address] | | | | | | [phone] | | | +--------+ + + + [...] + + + +---------+ + + | Wheeler-3 Fatty | CAPS, one capsule by | [...] | | | | | | | #[id number], exp 07/2016 | | | | | [...] | | | | | | [place] [address] | | | | | | [phone] | | | | | | | | +--------+ + + + + | 11/20/ | Implant | Cardiology | Daljit Singletary, | Remote Device | | 2018 | Monitor | | MD [address] | Interrogation | | | | | [facility] [place], | (Primary Dx); | | | | | [place] [address] | Presence of | | | | | [phone] | permanent cardiac | | | | [...]
--- OUTSIDE RECORDS SUMMARY | ~2019-10-04 | XMS | Encounter Summary ---
Demographics + + + | Address | [address] | | | [place] [address] | + + + | Home Phone [...] + +------+ + | Care Financial Services Education Consultant Name | Role | Phone | [...] 2012 | | Conversion Location | [address] | | | | | [phone] | [address] [place], | | | | | | [place] [address] | | | | | | [phone] | | | | | | | [...] | | | | | | [place] [address] | | | | | | [phone] | | | | | | | | +--------+ + + + + | 11/20/ | Implant | Cardiology | Daljit Singletary, | Remote Device | | 2019 | Monitor | | [address] [facility] | Interrogation | | | | | [address] [place], | (Primary Dx); | | | | | [place] [address] | Presence of | | | | | [phone] | permanent cardiac | | | | [...]
--- OUTSIDE RECORDS SUMMARY | ~2019-10-04 | XMS | Encounter Summary ---
Demographics + + + | Address | [address] | | | [place] [address] | + + + | Home Phone [...] Providers + +------+ + | Care Coat Checker Name | Role | Phone | [...] + + | 04/07/ | Office | [facility] UR[facility] | Matthew Uriarte | Left ureteral | | 2019 | Visit | [address] | MD Tawanna [address] | calculus (Primary | | | | [place], [place] | [place] | Dx); Kidney stones | | | | [address] | [address] | | | | | [phone] | | | +--------+---------+ + + + [...] April 13, 2019 at 7:45 AM at [facility]. Please report to the [facility] no later than 6:15 AM. REMEMBER: NOTHING TO EAT OR DRINK AFTER MIDNIGHT April 12, 2019. NO FISH OIL, ASPIRIN OR ASPIRIN PRODUCTS ONE WEEK PRIOR TO SURGERY. Tylenol and Advil are OK. You will need to get the following testing done prior to surgery: CBC, BMP YOU WILL NEED TO BRING A SLEEVE MAKER WITH YOU THE DAY OF SURGERY. Call us at [phone] with any questions. [] Pain management booklet [...] Premature ventricular contraction [facility] care 06/26/2013 LAST PSA:12/16/2010 RESULT:0.14 LAST COLONOSCOPY:02/05/2009 [...] CV LHC; Surgeon: Daljit Singletary MD; Location: [facility] CV LAB CARDIAC CATHERIZATION N/A 01/25/2019 Procedure: CV Cor Angio; Surgeon: Daljit Singletary MD; Location: [facility] CV LAB COLONOSCOPY N/A 12/24/2017 Procedure: COLONOSCOPY; Surgeon: Emmanuel Daniel MD; Location: [facility] MEDICAL PROCEDURE UNIT COLONOSCOPY N/A 01/05/2019 Procedure: COLONOSCOPY; Surgeon: Emmanuel Daniel MD; Location: [facility] MEDICAL PROCEDURE UNIT EGD 12/24/2017 HARDWARE [...] Procedure: EGD; Surgeon: Emmanuel Daniel MD; Location: [facility] MEDICAL PROCEDURE UNIT UPPER GASTROINTESTINAL ENDOSCOPY N/A 01/05/2019 Procedure: EGD; Surgeon: Emmanuel Daniel MD; Location: [facility] MEDICAL PROCEDURE UNIT VASECTOMY Family History: [...] EVERY DAY, Disp: 90 tablet, Rfl: 3 [facility] Natural Products (OSTEO BI-FLEX/5-LOXIN ADVANCED PO), Take [...] 911, Disp: 100 ta blet, Rfl: 3 Jay-3 Fatty Acids (SALMON OIL-1000 PO), CAPS, one capsule by mouth daily twice daily , Disp: , Rfl: ondansetron (ZOFRAN ODT) 4 mg disintegrating tablet, Take 4 mg by mouth., Disp: , Rfl: ONE TOUCH DELICA LANCETS [facility], Check glucose as needed [...] have not thoroughly proofread this note, and water commissioner errors are very likely to occur. CC: [...] | | | | | [place], | | | | | | [place] [address] | | | | | | [phone] | | | | | | | | +--------+ + + + + | 11/20/ | Implant | Cardiology | Daljit Singletary, | Remote Device | | 2018 | Monitor | | MD [address] [place] | Interrogation | | | | | [place], | (Primary Dx); | | | | | [place] [address] | Presence of | | | | | [phone] | permanent cardiac | | | | [...]
--- OUTSIDE RECORDS SUMMARY | ~2019-10-04 | XMS | Encounter Summary ---
Demographics + + + | Address | [address] | | | [place] [address] | + + + | Home Phone [...] Providers + +------+ + | Care Plug Machine Operator Name | Role | Phone | + +------+ + PCP | Unavailable | + +------+ + Encounter Details +--------+ + + + + | Date | Type | Department | Care Team | Description | +--------+ + + + + | 05/13/ | Hospital | [facility] | | | | 2007 | Encounter | [facility] | | | | | | [place] [address] | | | | | | [place] | | | | | | [address] | | | | | | [phone] | | | +--------+ + + + [...] | | | | | | [place] [address] | | | | | | [phone] | | | | | | | | +--------+ + + + + | 11/20/ | Implant | Cardiology | Daljit Singletary, | Remote Device | | 2018 | Monitor | | [address] [facility] | Interrogation | | | | | [facility], | (Primary Dx); | | | | | [place] [address] | Presence of | | | | | [phone] | permanent cardiac | | | | [...]
--- OUTSIDE RECORDS SUMMARY | ~2019-10-04 | XMS | Encounter Summary ---
Demographics + + + | Address | [address] | | | [place] [address] | + + + | Home Phone [...] Team Providers + +------+ + | Care Skate Shop Attendant Name | Role | Phone | [...] + | 10/04/ | Telephone | [facility] | Daljit Singletary, | Other (Records sent) | | 2012 | | CARDIOLOGY [address] | MD [address] [place] | | | | | [place], | [place], | | | | | [place] [address] | [place] [address] | | | | | [phone] | [phone] | | | | | | | [...] W | | | | | | [place], | | | | | | [place] [address] | | | | | | [phone] | | | | | | | | +--------+ + + + + | 11/20/ | Implant | Cardiology | Daljit Singletary, | Remote Device | | 2018 | Monitor | | [address] [facility] | Interrogation | | | | | [place], | (Primary Dx); | | | | | [place] [address] | Presence of | | | | | [phone] | permanent cardiac | | | | [...]
--- OUTSIDE RECORDS SUMMARY | ~2019-10-04 | XMS | Encounter Summary ---
Demographics + + + | Address | [address] | | | [place] [address] | + + + | Home Phone [...] Team Providers + +------+ + | Care Mild Disabilities Teacher Name | Role | Phone | [...] + | 11/02/ | Telephone | [facility] | Daljit Singletary, | Other | | 2015 | | CARDIOLOGY [address] | MD [address] [place] | | | | | [place], | [place], | | | | | [place] [address] | [place] [address] | | | | | [phone] | [phone] | | | | | | | [...] | | | | | | [place], | | | | | | [place] [address] | | | | | | [phone] | | | | | | | | +--------+ + + + + | 11/20/ | Implant | Cardiology | Daljit Singeltary, | Remote Device | | 2018 | Monitor | | MD [address] | Interrogation | | | | | [place], | (Primary Dx); | | | | | [place] [address] | Presence of | | | | | [phone] | permanent cardiac | | | | [...]
--- OUTSIDE RECORDS SUMMARY | ~2019-10-04 | XMS | Encounter Summary ---
Demographics + + + | Address | [address] | | | [place] [address] | + + + | Home Phone [...] + +------+ + | Care Forest Fire Prevention Specialist Name | Role | Phone | + +------+ + PCP | Unavailable | + +------+ + Encounter Details +--------+ + + + + | Date | Type | Department | Care Team | Description | +--------+ + + + + | 01/20/ | [facility] | [facility] | Geri Angel, | | | 2009 | Encounter | MED CTR GENERIC OP | CURVE CLEANER [address] [place] | | | | | CONV DEPT [address] | [place] | | | | | [place], | [address] | | | | | [place] [address] | | | | | | [phone] | | | +--------+ + + + [...] | | | | | | [place], | | | | | | [place] [address] | | | | | | [phone] | | | | | | | | +--------+ + + + + | 11/20/ | Implant | Cardiology | Daljit Singletary, | Remote Device | | 2019 | Monitor | | MD [address] | Interrogation | | | | | [place], | (Primary Dx); | | | | | [place] [address] | Presence of | | | | | [phone] | permanent cardiac | | | | [...]
--- OUTSIDE RECORDS SUMMARY | ~2019-10-04 | XMS | Encounter Summary ---
Demographics + + + | Address | [address] | | | [place] [address] | + + + | Home Phone [...] Team Providers + +------+ + | Care Trampoline Team Coach Name | Role | Phone | [...] W | DISCLOSURE) | | | | [place], | [place], | | | | | [place] [address] | [place] [address] | | | | | [phone] | [phone] | | | | | | | [...] W | | | | | | [place], | | | | | | [place] [address] | | | | | | [phone] | | | | | | | | +--------+ + + + + | 11/20/ | Implant | Cardiology | Daljit Singletary, | Remote Device | | 2018 | Monitor | | [address] [facility] | Interrogation | | | | | [place], | (Primary Dx); | | | | | [place] [address] | Presence of | | | | | [phone] | permanent cardiac | | | | [...]
--- OUTSIDE RECORDS SUMMARY | ~2019-10-04 | XMS | Encounter Summary ---
Demographics + + + | Address | [address] | | | [place] [address] | + + + | Home Phone [...] Providers + +------+ + | Care Product Management Internship Name | Role | Phone | [...] | 07/30/ | Telephone | [facility] [place] [facility] | Michael Amanda, | Results | | 2013 | | MEDIC[place] | DO [address] | | | | | [address] | [place] | | | | | [place] | [address] | | | | | [address] | | | | | | [phone] | | | +--------+ + + + [...] | | | | | | [place] [address] | | | | | | [phone] | | | | | | | | +--------+ + + + + | 11/20/ | Implant | Cardiology | Daljit Singletary, | Remote Device | | 2018 | Monitor | | MD [address] | Interrogation | | | | | [place], | (Primary Dx); | | | | | [place] [address] | Presence of | | | | | [phone] | permanent cardiac | | | | [...]
--- OUTSIDE RECORDS SUMMARY | ~2019-10-04 | XMS | Encounter Summary ---
Demographics + + + | Address | [address] | | | [place] [address] | + + + | Home Phone [...] Team Providers + +------+ + | Care Membership Manager Name | Role | Phone | + +------+ + | Kirk French MD | PCP | | + +------+ + Encounter Details +--------+ + + + + | Date | Type | Department | Care Team | Description | +--------+ + + + + | 06/03/ | Hospital | [facility] GENERIC IP | Conversion | Back pain, | | 2014 | Encounter | CONVERSION DEP [address] | Transaction, | unspecified location | | | | [address] | Provider Unknown | | | | | [place], [place] | [phone] | | | | | [address] | (Fax) | | | | | [phone] | | | +--------+ + + + [...] + + + +---------+ + + | [place]-3 Fatty | CAPS, one capsule by | [...] | | | | | | | #[id number], exp 07/2016 | | | | | [...] | | | | | | [place] [address] | | | | | | [phone] | | | | | | | | +--------+ + + + + | 11/20/ | Implant | Cardiology | Daljit Singletary, | Remote Device | | 2019 | Monitor | | MD [address] | Interrogation | | | | | [place], | (Primary Dx); | | | | | [place] [address] | Presence of | | | | | [phone] | permanent cardiac | | | | [...]
--- OUTSIDE RECORDS SUMMARY | ~2019-10-04 | XMS | Encounter Summary ---
Demographics + + + | Address | [address] | | | [place] [address] | + + + | Home Phone [...] Providers + +------+ + | Care Pocket Maker Name | Role | Phone | [...] | Telephone | [facility] [place] | [place], | LABS | | 2019 | | CARDIOLOGY [address] | Janeen PLANNING ENGINEER [address] | | | | | [place], | [place], | | | | | [place] [address] | [place] [address] | | | | | [phone] | [phone] | | | | | | | [...] | | | | | | [place] [address] | | | | | | [phone] | | | | | | | | +--------+ + + + + | 11/20/ | Implant | Cardiology | Daljit Singletary, | Remote Device | | 2018 | Monitor | | [address] [place] | Interrogation | | | | | [place], | (Primary Dx); | | | | | [place] [address] | Presence of | | | | | [phone] | permanent cardiac | | | | [...]
--- OUTSIDE RECORDS SUMMARY | ~2019-10-04 | XMS | Encounter Summary ---
Demographics + + + | Address | [address] | | | [place] [address] | + + + | Home Phone [...] Team Providers + +------+ + | Care Commodities Clerk Name | Role | Phone | [...] 2019 | | GASTROENTEROLOGY | [address] [place] | | | | | [address] [place] | [address] [place], [place] | | | | | 210 [place], [place] | [address] | | | | | [address] | | | | | | [phone] | | | +--------+ + + + [...] | | | | | | [place] [address] | | | | | | [phone] | | | | | | | | +--------+ + + + + | 11/20/ | Implant | Cardiology | Daljit Singlteary, | Remote Device | | 2018 | Monitor | | MD [address] [place] | Interrogation | | | | | [place], | (Primary Dx); | | | | | [place] [address] | Presence of | | | | | [phone] | permanent cardiac | | | | [...]
--- OUTSIDE RECORDS SUMMARY | ~2019-10-04 | XMS | Encounter Summary ---
Demographics + + + | Address | [address] | | | [place] [address] | + + + | Home Phone [...] +------+ + | Care Mental Health Nurse Name | Role | Phone | + +------+ + PCP | Unavailable | + +------+ + Encounter Details +--------+ + + + + | Date | Type | Department | Care Team | Description | +--------+ + + + + | 07/20/ | [facility] | [facility] | Hunter Antunez, | | | 2009 - | Encounter | MED CTR MED ONC | [address] | | | | | [address] [place] | [place] | | | 07/24/ | | [place] [address] | [address] | | | 2009 | | [phone] | | | +--------+ + + + [...] | | | | | | [place] [address] | | | | | | [phone] | | | | | | | | +--------+ + + + + | 11/20/ | Implant | Cardiology | Daljit Singletary, | Remote Device | | 2019 | Monitor | | MD [address] | Interrogation | | | | | [address] [place], | (Primary Dx); | | | | | [place] [address] | Presence of | | | | | [phone] | permanent cardiac | | | | [...]
--- OUTSIDE RECORDS SUMMARY | ~2019-10-04 | XMS | Encounter Summary ---
Demographics + + + | Address | [address] | | | [place] [address] | + + + | Home Phone [...] Providers + +------+ + | Care Audio Engineer Name | Role | Phone | [...] Provider Unknown | | | | | [place], [place] | [phone] | | | | | [address] | | | | | | [phone] | | | +--------+ + + + [...] + + + +---------+ + + | [place]-3 Fatty | CAPS, one capsule by | [...] | | | | | | [place] [address] | | | | | | [phone] | | | | | | | | +--------+ + + + + | 11/20/ | Implant | Cardiology | Daljit Singletary, | Remote Device | | 2018 | Monitor | | MD [address] | Interrogation | | | | | [place], | (Primary Dx); | | | | | [place] [address] | Presence of | | | | | [phone] | permanent cardiac | | | | [...]
--- OUTSIDE RECORDS SUMMARY | ~2019-10-04 | XMS | Encounter Summary ---
Demographics + + + | Address | [address] | | | [place] [address] | + + + | Home Phone [...] Providers + +------+ + | Care Program Consultant Name | Role | Phone | + +------+ + PCP | Unavailable | + +------+ + Encounter Details +--------+ + + + + | Date | Type | Department | Care Team | Description | +--------+ + + + + | 03/08/ | [facility] | [facility] | Emmanuel Daniel MD | | | 2006 | Encounter | MED CTR GENERIC OP | [address] [place] | | | | | CONV DEPT [address] | [address] [place] | | | | | [place], | [address] | | | | | [place] [address] | | | | | | [phone] | | | +--------+ + + + [...] W | | | | | | [place], | | | | | | [place] [address] | | | | | | [phone] | | | | | | | | +--------+ + + + + | 11/20/ | Implant | Cardiology | Daljit Singletary, | Remote Device | | 2019 | Monitor | | MD [address] | Interrogation | | | | | [place], | (Primary Dx); | | | | | [place] [address] | Presence of | | | | | [phone] | permanent cardiac | | | | [...]
--- OUTSIDE RECORDS SUMMARY | ~2019-10-04 | XMS | Encounter Summary ---
Demographics + + + | Address | [address] | | | [place] [address] | + + + | Home Phone [...] Providers + +------+ + | Care Flight Communications Specialist Name | Role | Phone | + +------+ + PCP | Unavailable | + +------+ + Encounter Details +--------+ + + + + | Date | Type | Department | Care Team | Description | +--------+ + + + + | 02/07/ | [facility] | [facility] | Unknown, | | | 1995 | Encounter | MED CTR XRAY [address] | MD Stefany | | | | | [place] | | | | | | [place] [address] | (Fax) | | | | | [phone] | | | +--------+ + + + [...] | | | | | | [place] [address] | | | | | | [phone] | | | | | | | | +--------+ + + + + | 11/20/ | Implant | Cardiology | Daljit Singletary, | Remote Device | | 2019 | Monitor | | [address] [facility] | Interrogation | | | | | [place], | (Primary Dx); | | | | | [place] [address] | Presence of | | | | | [phone] | permanent cardiac | | | | [...]
--- OUTSIDE RECORDS SUMMARY | ~2019-10-04 | XMS | Encounter Summary ---
Demographics + + + | Address | [address] | | | [place] [address] | + + + | Home Phone [...] Providers + +------+ + | Care Timber Watchman Name | Role | Phone | + +------+ + | Kirk French MD | PCP | | + +------+ + Encounter Details +--------+ + + + + | Date | Type | Department | Care Team | Description | +--------+ + + + + | 06/03/ | Hospital | [facility] GENERIC IP | Conversion | Back pain, | | 2014 | Encounter | CONVERSION DEP [address] | Transaction, | unspecified location | | | | [address] | Provider Unknown | | | | | [place], [place] | [phone] | | | | | [address] | (Fax) | | | | | [phone] | | | +--------+ + + + [...] + + + +---------+ + + | [place]-3 Fatty | CAPS, one capsule by | [...] | | | | | | | #[id number], exp 07/2016 | | | | | [...] | | | | | | [place] [address] | | | | | | [phone] | | | | | | | | +--------+ + + + + | 11/20/ | Implant | Cardiology | Daljit Singletary, | Remote Device | | 2019 | Monitor | | MD [address] | Interrogation | | | | | [place], | (Primary Dx); | | | | | [place] [address] | Presence of | | | | | [phone] | permanent cardiac | | | | [...]
--- OUTSIDE RECORDS SUMMARY | ~2019-10-04 | XMS | Encounter Summary ---
Demographics + + + | Address | [address] | | | [place] [address] | + + + | Home Phone [...] Team Providers + +------+ + | Care Drums Teacher Name | Role | Phone | [...] | RN | | | | | [place], | | | | | | [place] [address] | | | | | | [phone] | | | +--------+ + + + [...] W | | | | | | [place], | | | | | | [place] [address] | | | | | | [phone] | | | | | | | | +--------+ + + + + | 11/20/ | Implant | Cardiology | Daljit Singletary, | Remote Device | | 2019 | Monitor | | [address] | Interrogation | | | | | [place], | (Primary Dx); | | | | | [place] [address] | Presence of | | | | | [phone] | permanent cardiac | | | | [...]
--- OUTSIDE RECORDS SUMMARY | ~2019-10-04 | XMS | Encounter Summary ---
Demographics + + + | Address | [address] | | | [place] [address] | + + + | Home Phone [...] Team Providers + +------+ + | Care Pharmacognosy Teacher Name | Role | Phone | [...] [place] | | | | | [place], [place] | [address] | | | | | [address] | [place] [address] | | | | | [phone] | [phone] | | | | | | | [...] W | | | | | | [place], | | | | | | [place] [address] | | | | | | [phone] | | | | | | | | +--------+ + + + + | 11/20/ | Implant | Cardiology | Daljit Singletary, | Remote Device | | 2018 | Monitor | | [address] [place] | Interrogation | | | | | [place], | (Primary Dx); | | | | | [place] [address] | Presence of | | | | | [phone] | permanent cardiac | | | | [...]
--- OUTSIDE RECORDS SUMMARY | ~2019-10-04 | XMS | Encounter Summary ---
Demographics + + + | Address | [address] | | | [place] [address] | + + + | Home Phone [...] Providers + +------+ + | Care Crime Scene Specialist Name | Role | Phone | [...] | initial encounter; | | | | [place], [place] | | Elevated blood | | | | [address] | | pressure reading; | | | | [phone] | | Numbness and | | | [...] + + + +---------+ + + | [place]-3 Fatty | CAPS, one capsule by | [...] | | | | | | [place] [address] | | | | | | [phone] | | | | | | | | +--------+ + + + + | 11/20/ | Implant | Cardiology | Gemini Shaistakenneth, | Remote Device | | 2019 | Monitor | | MD [address] [facility] | Interrogation | | | | | [place], | (Primary Dx); | | | | | [place] [address] | Presence of | | | | | [phone] | permanent cardiac | | | | [...]
--- OUTSIDE RECORDS SUMMARY | ~2019-10-04 | XMS | Encounter Summary ---
Demographics + + + | Address | [address] | | | [place] [address] | + + + | Home Phone [...] Providers + +------+ + | Care Project Development Manager Name | Role | Phone [...] 2019 | | GASTROENTEROLOGY | [address] [place], [place] | | | | | [address] [place] | [address] [place], [place] | | | | | 210 [place], [place] | [address] | | | | | [address] | | | | | | [phone] | | | +--------+ + + + [...] | | | | | | [place], | | | | | | [place] [address] | | | | | | [phone] | | | | | | | | +--------+ + + + + | 11/20/ | Implant | Cardiology | Daljit Singletary, | Remote Device | | 2018 | Monitor | | MD [address] | Interrogation | | | | | [place], | (Primary Dx); | | | | | [place] [address] | Presence of | | | | | [phone] | permanent cardiac | | | | [...]
--- OUTSIDE RECORDS SUMMARY | ~2019-10-04 | XMS | Encounter Summary ---
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 Since [...] tablet Take 1,000 mg by mouth Daily. [place]-3 Fatty Acids (SALMON OIL-1000 PO) CAPS, one [...] performed by Dr. Gambino at [facility] on 01/30/2013. 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 There is no [...] been encouraged to keep his appointment with teacher selection specialist this coming y to attempt ablation therapy. 4. Follow up appointment in 4-6 weeks. I, PARISA Russell, saw this patient under the direct supervision of Daljit Singletary MD Portions of this report were transcribed using voice recognition software. Every effort wa s made to ensure accuracy; however, inadvertent computerized analytical chemist errors may be pre sent. documented in this encounter Plan of Treatment +--------+ + + + + | Date | Type | Specialty | Care Team | Description | +--------+ + + + + | 11/09/ | Office | Cardiology | Silvia, | | | 2019 | Visit | | PARISA [place] [address] | | | | | | [place], | | | | | | [place] [address] | | | | | | [phone] | | | | | | | | +--------+ + + + + | 11/20/ | Implant | Cardiology | Daljit Singletary, | Remote Device | | 2019 | Monitor | | [address] [facility] | Interrogation | | | | | [place], | (Primary Dx); | | | | | [place] [address] | Presence of | | | | | [phone] | permanent cardiac | | | | [...]
--- OUTSIDE RECORDS SUMMARY | ~2019-10-04 | XMS | Encounter Summary ---
Demographics + + + | Address | [address] | | | [place] [address] | + + + | Home Phone [...] Team Providers + +------+ + | Care Attendant Sales Name | Role | Phone | [...] | | | | [place] | [address] | | | | | [address] | | | | | | [phone] | | | +--------+ + + + [...] W | | | | | | [place], | | | | | | [place] [address] | | | | | | [phone] | | | | | | | | +--------+ + + + + | 11/20/ | Implant | Cardiology | Daljit Singletary, | Remote Device | | 2018 | Monitor | | MD [address] | Interrogation | | | | | [place], | (Primary Dx); | | | | | [place] [address] | Presence of | | | | | [phone] | permanent cardiac | | | | [...]
--- OUTSIDE RECORDS SUMMARY | ~2019-10-04 | XMS | Encounter Summary ---
Demographics + + + | Address | [address] | | | [place] [address] | + + + | Home Phone [...] | Clinical | [facility] [place] | Dalijt Singletary, | Symptomatic PVCs | | 2018 | Support | CARDIOLOGY [address] | [address] | (Primary Dx); | | | | [place], | [place], | Tachycardia; | | | | [place] [address] | [place] [id number] | Coronary artery | | | | [phone] | [phone] | disease involving | | | | | | [place] coronary | | | | | | artery of [place] | | | | | | heart [...] W | | | | | | [place], | | | | | | [place] [address] | | | | | | [phone] | | | | | | | | +--------+ + + + + | 11/20/ | Implant | Cardiology | Daljit Singletary, | Remote Device | | 2019 | Monitor | | MD [address] [place] [place] | Interrogation | | | | | [place], | (Primary Dx); | | | | | [place] [address] | Presence of | | | | | [phone] | permanent cardiac | | | | [...] involving | | | | | | [place] coronary | | | | | | artery of [place] | | | | | | heart [...] DALJIT | | | | | | ([id number]) on 06/29/2018 | | | | | [...] + + | Coronary artery disease involving [place] coronary artery of [place] heart without | | angina pectoris | + + | Hypertension, unspecified type | + + documented in this encounter"
--- OUTSIDE RECORDS SUMMARY | ~2019-10-04 | XMS | Encounter Summary ---
Demographics + + + | Address | [address] | | | [place] [address] | + + + | Home Phone [...] Team Providers + +------+ + | Care Worm Grower Name | Role | Phone | + +------+ + PCP | Unavailable | + +------+ + Encounter Details +--------+ + + + + | Date | Type | Department | Care Team | Description | +--------+ + + + + | 10/13/ | Hospital | [facility] | | | | 2007 | Encounter | MED CTR EMERGENCY | | | | | | [place] [address] | | | | | | [place] | | | | | | [address] | | | | | | [phone] | | | +--------+ + + + [...] | | | | | | [place] [address] | | | | | | [phone] | | | | | | | | +--------+ + + + + | 11/20/ | Implant | Cardiology | Daljit Singletary, | Remote Device | | 2018 | Monitor | | [facility] | Interrogation | | | | | [place], | (Primary Dx); | | | | | [place] [address] | Presence of | | | | | [phone] | permanent cardiac | | | | [...]
--- OUTSIDE RECORDS SUMMARY | ~2019-10-04 | XMS | Encounter Summary ---
Demographics + + + | Address | [address] | | | [place] [address] | + + + | Home Phone [...] | Organization | [facility] | | | [...] Providers + +------+ + | Care Analytical Lead Name | Role | Phone | [...] 2019 | | GASTROENTEROLOGY | [address] [place] | Recommendations | | | | [address] [place] | [address] [place], [place] | | | | | [address] [place], [place] | [address] | | | | | [address] | | | | | | [phone] | | | +--------+ + + + [...] | | | | | | [place] [address] | | | | | | [phone] | | | | | | | | +--------+ + + + + | 11/20/ | Implant | Cardiology | Daljit Singletary, | Remote Device | | 2018 | Monitor | | [address] | Interrogation | | | | | [place], | (Primary Dx); | | | | | [place] [address] | Presence of | | | | | [phone] | permanent cardiac | | | | [...]
--- OUTSIDE RECORDS SUMMARY | ~2019-10-04 | XMS | Encounter Summary ---
Demographics + + + | Address | [address] | | | [place] [address] | + + + | Home Phone [...] Providers + +------+ + | Care Director Health Name | Role | Phone | + +------+ + | Kirk French MD | PCP | | + +------+ + Encounter Details +--------+ + + + + | Date | Type | Department | Care Team | Description | +--------+ + + + + | 06/19/ | Orders Only | [facility] | Fabrice Hylton, | Abnormal weight | | 2019 | | SYSTEM GENERIC OP | MD [address] | loss; Anxiety | | | | CONVERSION [address] [place], [place] | disorder; Chronic | | | | [address] [place], [place] | [address] | pain syndrome; | | | | [address] | | Obesity; Neuralgia | | | | [phone] | | and neuritis, | | | [...] [address] | | | | | | [place], | | | | | | [place] [address] | | | | | | [phone] | | | | | | | | +--------+ + + + + | 11/20/ | Implant | Cardiology | Daljit Singletary, | Remote Device | | 2019 | Monitor | | [address] | Interrogation | | | | | [place], | (Primary Dx); | | | | | [place] [address] | Presence of | | | | | [phone] | permanent cardiac | | | | [...]
--- OUTSIDE RECORDS SUMMARY | ~2019-10-04 | XMS | Encounter Summary ---
Demographics + + + | Address | [address] | | | [place] [address] | + + + | Home Phone [...] Providers + +------+ + | Care Switch House Operator Name | Role | Phone | [...] + + | 10/25/ | [facility] | [facility] | Silvia, | Other (patient has | | 2013 | | CARDIOLOGY [address] | Janeen MANAGER FLORAL [address] | changed his mind) | | | | [place], | [place], | | | | | [place] [address] | [place] [address] | | | | | [phone] | [phone] | | | | | | | [...] W | | | | | | [place], | | | | | | [place] [address] | | | | | | [phone] | | | | | | | | +--------+ + + + + | 11/20/ | Implant | Cardiology | Daljit Singletary, | Remote Device | | 2018 | Monitor | | [facility] | Interrogation | | | | | [place], | (Primary Dx); | | | | | [place] [address] | Presence of | | | | | [phone] | permanent cardiac | | | | [...]
--- OUTSIDE RECORDS SUMMARY | ~2019-10-04 | XMS | Encounter Summary ---
Demographics + + + | Address | [address] | | | [place] [address] | + + + | Home Phone [...] Providers + +------+ + | Care Senior Operations Manager Name | Role | Phone [...] + + | 02/21/ | Office | [facility] | Silvia, | Coronary artery | | 2019 | Visit | CARDIOLOGY [address] | PARISA [place] [address] | disease involving | | | | [place], | [place], | kl[place] ka[place] coronary | | | | [place] [address] | [place] [address] | artery of [place] | | | | [phone] | [phone] | heart without angina | | | [...] of non-critical coronary artery d isease involving [place] coronary artery of [place] heart without angina pectoris, essential h ypertension, [...] stay active. 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 He has not had any [...] Preventative health care Coronary artery disease involving [place] coronary artery of [place] heart without angina pectoris Cannabis abuse, daily [...] 3RD DOSE, CALL 911 100 tablet 3 [place]-3 Fatty Acids (SALMON OIL-1000 PO) CAPS, [...] was found Confirmed by ANGELA MARADIAGA MD ([id number]) on 01/03/2019 8:10:39 PM LAB RESULTS reviewed during visit today primarily from [facility]: LIPID Lab Results Component Value Date TRIG [...] BNP 15 01/02/2019 I reviewed records from [facility] for angiogram results on 019 which is summarized in the HPI. RESULTS- I reviewed reports from [facility]: No results found. Left heart catheterization done [...] ASSESSMENT: 1. 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 Heart failure stage [...] [facility] on 01/30[facility]2013.Patient had spontaneous PVC's [...] of presyncope 05/28/10 [facility], thought to have vasovagal symptoms. B. [...] this chart may have been created with Chayamuni voice recognition software. Occasi onal wrong-word or [...] [place], | | | | | | [place] [address] | | | | | | [phone] | | | | | | | | +--------+ + + + + | 11/20/ | Implant | Cardiology | Daljit Singletary, | Remote Device | | 2018 | Monitor | | MD [address] | Interrogation | | | | | [place], | (Primary Dx); | | | | | [place] [address] | Presence of | | | | | [phone] | permanent cardiac | | | | [...] kaah heart without | | angina pectoris - Primary | + + | Symptomatic PVCs Other premature beats | + + | Essential hypertension Unspecified essential hypertension | + + documented in this encounter
--- OUTSIDE RECORDS SUMMARY | ~2019-10-04 | XMS | Encounter Summary ---
Demographics + + + | Address | [address] | | | [place] [address] | + + + | Home Phone [...] Team Providers + +------+ + | Care Covering Machine Operator Name | Role | Phone [...] | Emmanuel E, MD | [address] [place] | | | | | unspecified | [address] | [place], | | | | | type | [place], [place] | [place] | | | | | Abdominal | [address] [place] | [address] | | | | | cramping | [place], [place] | Phone: | | | | | Generalized | [address] | [phone] | | | | | abdominal | Phone: | Fax: | | | | | pain | [phone] | [phone] | | | | | Procedures | Fax: | | | | | | CT Abdomen | [phone] | | | | | | Pelvis [...] | | GASTROENTEROLOGY | [address] [place], [place] | (stomach cramps and | | | | [address] [place] | [address] [place], [place] | liquid stool) | | | | [address] [place], [place] | [address] | | | | | [address] | | | | | | [phone] | | | +--------+ + + + [...] | | | | | | [place] [address] | | | | | | [phone] | | | | | | | | +--------+ + + + + | 12/30/ | Implant | Cardiology | Daljit Singletary, | Remote Device | | 2019 | Monitor | | [address] [facility] | Interrogation | | | | | [place], | (Primary Dx); | | | | | [place] [address] | Presence of | | | | | [phone] | permanent cardiac | | | | [...]
--- OUTSIDE RECORDS SUMMARY | ~2019-10-04 | XMS | Encounter Summary ---
Demographics + + + | Address | [address] | | | [place] [address] | + + + | Home Phone [...] Providers + +------+ + | Care Executive Assistant To President Name | Role | Phone | [...] CARDIOLOGY [address] | MD Sim [place] | reprogramming/check | | | | [place], | [place], | DO [place] DELETE | | | | [place] [address] | [place] [address] | (Primary Dx); | | | | [phone] | [phone] | Pacemaker - | | | | [...] a 45 pistol. Electronically kamaljit d by: Kialey Pruitt RN 01/19/2018 10:00Electronically signed by Kailey [...] | | | | | | [place] [address] | | | | | | [phone] | | | | | | | | +--------+ + + + + | 11/20/ | Implant | Cardiology | Daljit Singletary, | Remote Device | | 2019 | Monitor | | [facility] | Interrogation | | | | | [place], | (Primary Dx); | | | | | [place] [address] | Presence of | | | | | [phone] | permanent cardiac | | | | [...]
--- OUTSIDE RECORDS SUMMARY | ~2019-10-04 | XMS | Encounter Summary ---
Demographics + + + | Address | [address] | | | [place] [address] | + + + | Home Phone [...] Providers + +------+ + | Care Inspector Motor Vehicles Name | Role | Phone | + [...] CARDIOLOGY [address] | [address] [place] | Interrogation | | | | [place], | [place], | (Primary Dx); | | | | [place] [address] | [place] [address] | Presence of | | | | [phone] | [phone] | permanent cardiac | | | | [...] | | | | | | [place] [address] | | | | | | [phone] | | | | | | | | +--------+ + + + + | 11/20/ | Implant | Cardiology | Daljit Singletary, | Remote Device | | 2019 | Monitor | | [address] [place] [place] | Interrogation | | | | | [place], | (Primary Dx); | | | | | [place] [address] | Presence of | | | | | [phone] | permanent cardiac | | | | [...] remote PDF scanned into | | | BlackJet for remote interrogation results. Data collected by [...]
--- OUTSIDE RECORDS SUMMARY | ~2019-10-04 | XMS | Encounter Summary ---
Demographics + + + | Address | [address] | | | [place] [address] | + + + | Home Phone [...] Providers + +------+ + | Care Dispatcher Tugboat Name | Role | Phone | + [...] | RN | | | | | [place], | | | | | | [place] [address] | | | | | | [phone] | | | +--------+ + + + [...] | | | | | | [place] [address] | | | | | | [phone] | | | | | | | | +--------+ + + + + | 11/20/ | Implant | Cardiology | Daljit Singletary, | Remote Device | | 2019 | Monitor | | [address] [place] [address] | Interrogation | | | | | [place], | (Primary Dx); | | | | | [place] [address] | Presence of | | | | | [phone] | permanent cardiac | | | | [...]
--- OUTSIDE RECORDS SUMMARY | ~2019-10-04 | XMS | Encounter Summary ---
Demographics + + + | Address | [address] [place] [address] | | | [place] [address] | + + + | Home Phone [...] [place] | | | | | [address] | | + + + + + Care Team Providers + +------+ + | Care Boot And Shoe Laborer Name | Role | Phone | [...] 2019 | | Center at [facility] [address] | Gastroenterology | Gastroenterology | | | | ILA Tremayne Crane | | | | | | Mailcode: Pep | | | | | | [facility] and | | | | | | [place] [address] | | | | | | [place], [place] | | | | | | [address] | | | | | | [phone] | | | +--------+ + + + [...]
--- OUTSIDE RECORDS SUMMARY | ~2019-10-04 | XMS | Encounter Summary ---
Demographics + + + | Address | [address] | | | [place] [address] | + + + | Home Phone [...] CARDIOLOGY [address] | MD Sim [place] | reprogramming/check | | | | [place], | [place], | DO NOT DELETE | | | | [place] [address] | [place] [address] | (Primary Dx); | | | | [phone] | [phone] | Pacemaker - | | | | [...] | | | | | | [place] [address] | | | | | | [phone] | | | | | | | | +--------+ + + + + | 11/20/ | Implant | Cardiology | Daljit Singletary, | Remote Device | | 2019 | Monitor | | [facility] | Interrogation | | | | | [place], | (Primary Dx); | | | | | [place] [address] | Presence of | | | | | [phone] | permanent cardiac | | | | [...]
--- OUTSIDE RECORDS SUMMARY | ~2019-10-04 | XMS | Encounter Summary ---
Demographics + + + | Address | [address] | | | [place] [address] | + + + | Home Phone [...] Providers + +------+ + | Care News Wire Photo Operator Name | Role | Phone | + +------+ + PCP | Unavailable | + +------+ + Encounter Details +--------+ + + + + | Date | Type | Department | Care Team | Description | +--------+ + + + + | 12/16/ | [facility] | [facility] | Naresh Mckeon | | | 2010 | Encounter | MED CTR SLEEP | MD Chaya [address] | | | | | CENTER [address] | [place] | | | | | [place] | [place] [address] | | | | | [address] | [phone] | | | | | [phone] | | | +--------+ + + + [...] | | | | | | [place] [address] | | | | | | [phone] | | | | | | | | +--------+ + + + + | 11/20/ | Implant | Cardiology | Daljit Singletary, | Remote Device | | 2019 | Monitor | | MD [place] | Interrogation | | | | | [place], | (Primary Dx); | | | | | [place] [address] | Presence of | | | | | [phone] | permanent cardiac | | | | [...]
--- OUTSIDE RECORDS SUMMARY | ~2019-10-04 | XMS | Encounter Summary ---
Demographics + + + | Address | [address] | | | [place] [address] | + + + | Home Phone [...] Providers + +------+ + | Care Computer Lab Para Professional Name | Role | Phone | + +------+ + PCP | Unavailable | + +------+ + Encounter Details +--------+ + + + + | Date | Type | Department | Care Team | Description | +--------+ + + + + | 06/25/ | [facility] | [facility] | Daljit Singletary, | | | 2008 | Encounter | MED CTR XRAY [address] | [address] [place] | | | | | [place] | [place], | | | | | [place] [address] | [place] [address] | | | | | [phone] | [phone] | | | | | | | [...] | | | | | | [place] [address] | | | | | | [phone] | | | | | | | | +--------+ + + + + | 11/20/ | Implant | Cardiology | Daljit Singletary, | Remote Device | | 2019 | Monitor | | MD [place] | Interrogation | | | | | [place], | (Primary Dx); | | | | | [place] [address] | Presence of | | | | | [phone] | permanent cardiac | | | | [...]
--- OUTSIDE RECORDS SUMMARY | ~2019-10-04 | XMS | Encounter Summary ---
Demographics + + + | Address | [address] | | | [place] [address] | + + + | Home Phone [...] Providers + +------+ + | Care Sap Consultant Name | Role | Phone | [...] + + | 12/29/ | Office | [facility] | Silvia, | Ascending thoracic | | 2017 | Visit | CARDIOLOGY [address] | [place] [address] | aortic aneurysm | | | | [place], | [place], | (HCC) (Primary Dx); | | | | [place] [address] | [place] [address] | Coronary artery | | | | [phone] | [phone] | disease involving | | | | | | [place] coronary | | | | | | artery of [place] | | | | | | heart [...] start Losartan 25 mg once every day, [facility] blood pressure log, and follow up in 3 months. Since that time, he went to the ER in [facility] with chest pain at the end [...] 3RD DOSE, CALL 911 100 tablet 3 [place]-3 Fatty Acids (SALMON OIL-1000 PO) CAPS, one [...] was found Confirmed by SYDNI SINGLETARY MD ([id number]) on 06/23/2016 2:08:15 PM LAB RESULTS reviewed during visit today primarily from [facility]: LIPID Lab Results Component Value Date [...] 129* 05/12/2016 I reviewed records from [facility] for office visit on 09/01/2016 which [...] He is in class I of the [place] Heart 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 On physical examination there are no signs of fl uid overload. 2. Non-critical Coronary artery disease involving [place] coronary a rtery of [place] heart without angina pectoris: A. Normal exercise [...] to go back in 3 days to [place] for an attempt of ablation under [...] is a normal stable device function. Estimated Reunifyi ng battery longevity is 5 years.. 5. [...] this chart may have been created with IdeaString voice recognition software. Occasi onal wrong-word or [...] W | | | | | | [place], | | | | | | [place] [address] | | | | | | [phone] | | | | | | | | +--------+ + + + + | 11/20/ | Implant | Cardiology | Sydni Singletary, | Remote Device | | 2019 | Monitor | | MD [address] [place] | Interrogation | | | | | [place], | (Primary Dx); | | | | | [place] [address] | Presence of | | | | | [phone] | permanent cardiac | | | | [...] + + | Coronary artery disease involving [place] coronary artery of [place] heart without | | angina pectoris | + + | Essential hypertension with goal blood pressure less than 130/80 | + + | Hyperlipidemia, mixed Mixed hyperlipidemia | + + documented in this encounter
--- OUTSIDE RECORDS SUMMARY | ~2019-10-04 | XMS | Encounter Summary ---
Demographics + + + | Address | [address] | | | [place] [address] | + + + | Home Phone [...] Team Providers + +------+ + | Care Echocardiograph Tech Name | Role | Phone | [...] | | CARDIOLOGY [address] | Janeen [employer] SCHO[employer] CAREGIVER [address] | mixed | | | | [place], | [place], | | | | | [place] [address] | [place] [address] | | | | | [phone] | [phone] | | | | | | | [...] | | | | | | [place] [address] | | | | | | [phone] | | | | | | | | +--------+ + + + + | 11/20/ | Implant | Cardiology | Daljit Singletary, | Remote Device | | 2018 | Monitor | | MD [facility] | Interrogation | | | | | [place], | (Primary Dx); | | | | | [place] [address] | Presence of | | | | | [phone] | permanent cardiac | | | | [...]
--- OUTSIDE RECORDS SUMMARY | ~2019-10-04 | XMS | Encounter Summary ---
Demographics + + + | Address | [address] | | | [place] [address] | + + + | Home Phone [...] Providers + +------+ + | Care Medical Examiner Name | Role | Phone | + +------+ + | Michael Amanda DO | PCP | | + +------+ + Encounter Details +--------+ + + + + | Date | Type | Department | Care Team | Description | +--------+ + + + + | 05/11/ | Hospital | [facility] | Conversion | Lumbago; | | 2013 | Encounter | MEDICAL CENTER XRAY | Transaction, | Postlaminectomy | | | | [address] | Provider Unknown | syndrome, cervical | | | | [place], [place] | | region; Cervicalgia | | | | [address] | (Fax) | | | | | [phone] | | | +--------+ + + + [...] + + + +---------+ + + | [place]-3 Fatty | CAPS, one capsule by | [...] 1147 Date of Service: 05/11/141145 Status: Signed Shower Maid: Christine Mcgraw Report called to Brittany morejon [...] | | | | | | [place] [address] | | | | | | [phone] | | | | | | | | +--------+ + + + + | 11/20/ | Implant | Cardiology | Daljit Singletary, | Remote Device | | 2018 | Monitor | | [address] [place] | Interrogation | | | | | [place], | (Primary Dx); | | | | | [place] [address] | Presence of | | | | | [phone] | permanent cardiac | | | | [...]
--- OUTSIDE RECORDS SUMMARY | ~2019-10-04 | XMS | Encounter Summary ---
Demographics + + + | Address | [address] | | | [place] [address] | + + + | Home Phone [...] Providers + +------+ + | Care Senior Property Manager Name | Role | Phone [...] | 01/05/ | Telephone | [facility] | Emmanuel Daniel MD | Other | | 2019 | | GASTROENTEROLOGY | [address] [place], [place] | | | | | [address] [place] | [address] [place], [place] | | | | | [address] [place], [place] | [address] | | | | | [address] | | | | | | [phone] | | | +--------+ + + + [...] | | | | | | [place] [address] | | | | | | [phone] | | | | | | | | +--------+ + + + + | 11/20/ | Implant | Cardiology | Daljit Singletary, | Remote Device | | 2018 | Monitor | | MD [address] [place] [address] | Interrogation | | | | | [place], | (Primary Dx); | | | | | [place] [address] | Presence of | | | | [phone] | permanent cardiac | | | | [...]
--- OUTSIDE RECORDS SUMMARY | ~2019-10-04 | XMS | Encounter Summary ---
Demographics + + + | Address | [address] | | | [place] [address] | + + + | Home Phone [...] Providers + +------+ + | Care Rotor Pilot Name | Role | Phone | + +------+ + | Kirk French MD | PCP | | + +------+ + Encounter Details +--------+ + + + + | Date | Type | Department | Care Team | Description | +--------+ + + + + | 11/16/ | Hospital | [facility] | Kirk French | Aneurysm (HCC) | | 2017 | Encounter | MED CTR ULTRASOUND | D, MD [address] | | | | | [address] | [address] | | | | | [place], [place] | [place] [address] | | | | | [address] | [phone] | | | | | [phone] | | | | | | | [...] + + +---------+ + + | [place]-3 Fatty | CAPS, one capsule by | [...] | | | | | | [place] [address] | | | | | | [phone] | | | | | | | | +--------+ + + + + | 11/20/ | Implant | Cardiology | Daljit Singletary, | Remote Device | | 2019 | Monitor | | [address] [facility] | Interrogation | | | | | [place], | (Primary Dx); | | | | | [place] [address] | Presence of | | | | | [phone] | permanent cardiac | | | | [...]
--- OUTSIDE RECORDS SUMMARY | ~2019-10-04 | XMS | Encounter Summary ---
Demographics + + + | Address | [address] | | | [place] [address] | + + + | Home Phone [...] Providers + +------+ + | Care Setter Automatic Spinning Lathe Name | Role | Phone | + [...] | 09/30/ | Telephone | [facility] [place] | Daljit Singletary, | Other (Danieljoao | | 2018 | | [place] [address] | [address] [place] | remote) | | | | [place], | [place], | | | | | [place] [address] | [place] [address] | | | | | [phone] | [phone] | | | | | | | [...] W | | | | | | [place], | | | | | | [place] [address] | | | | | | [phone] | | | | | | | | +--------+ + + + + | 11/20/ | Implant | Cardiology | Daljit Singletary, | Remote Device | | 2018 | Monitor | | MD [address] [place] | Interrogation | | | | | [place], | (Primary Dx); | | | | | [place] [address] | Presence of | | | | | [phone] | permanent cardiac | | | | [...]
--- OUTSIDE RECORDS SUMMARY | ~2019-10-04 | XMS | Encounter Summary ---
Demographics + + + | Address | [address] | | | [place] [address] | + + + | Home Phone [...] Providers + +------+ + | Care Retail Planner Name | Role | Phone | [...] 2014 | | CARDIOLOGY [address] | MORTGAGE LOAN ASSISTANT [address] [place] | edema and chest | | | | [place], | [facility] [place] | pain) | | | | [place] [address] | [address] | | | | | [phone] | | | +--------+ + + + [...] W | | | | | | [place], | | | | | | [place] [address] | | | | | | [phone] | | | | | | | | +--------+ + + + + | 11/20/ | Implant | Cardiology | Daljit Singletary, | Remote Device | | 2018 | Monitor | | MD Sim [facility] | Interrogation | | | | | [place], | (Primary Dx); | | | | | [place] [address] | Presence of | | | | | [phone] | permanent cardiac | | | | [...]
--- OUTSIDE RECORDS SUMMARY | ~2019-10-04 | XMS | Encounter Summary ---
Demographics + + + | Address | [address] | | | [place] [address] | + + + | Home Phone [...] Providers + +------+ + | Care Plant Maintenance Technician Name | Role | Phone | + +------+ + PCP | Unavailable | + +------+ + Encounter Details +--------+ + + + + | Date | Type | Department | Care Team | Description | +--------+ + + + + | 01/14/ | Hospital | [facility] | Deburi, | BACKACHE NOS | | 2004 | Encounter | MEDICAL CENTER | MD [address] | | | | | CLINICAL DECISION | [place] | | | | | [address] | [place] [address] | | | | | [place], [place] | [phone] | | | | | [address] | | | | | | [phone] | | | +--------+ + + + [...] W | | | | | | [place], | | | | | | [place] [address] | | | | | | [phone] | | | | | | | | +--------+ + + + + | 11/20/ | Implant | Cardiology | Daljit Singletary, | Remote Device | | 2019 | Monitor | | MD [address]iqu[address] | Interrogation | | | | | [place], | (Primary Dx); | | | | | [place] [address] | Presence of | | | | | [phone] | permanent cardiac | | | | [...]
--- OUTSIDE RECORDS SUMMARY | ~2019-10-04 | XMS | Encounter Summary ---
Demographics + + + | Address | [address] | | | [place] [address] | + + + | Home Phone [...] Providers + +------+ + | Care Meter Repair Shop Supervisor Name | Role | Phone | + +------+ + PCP | Unavailable | + +------+ + Encounter Details +--------+ + + + + | Date | Type | Department | Care Team | Description | +--------+ + + + + | 06/17/ | Hospital | [facility] | | | | 2007 | Encounter | MED CTR EMERGENCY | | | | | | [place] [address] | | | | | | [place] | | | | | | [address] | | | | | | [phone] | | | +--------+ + + + [...] | | | | | | [place] [address] | | | | | | [phone] | | | | | | | | +--------+ + + + + | 11/20/ | Implant | Cardiology | Daljit Singletary, | Remote Device | | 2018 | Monitor | | [address] [facility] | Interrogation | | | | | [place], | (Primary Dx); | | | | | [place] [address] | Presence of | | | | | [phone] | permanent cardiac | | | | [...]
--- OUTSIDE RECORDS SUMMARY | ~2019-10-04 | XMS | Encounter Summary ---
Demographics + + + | Address | [address] | | | [place] [address] | + + + | Home Phone [...] Team Providers + +------+ + | Care Handkerchief Sample Clerk Name | Role | Phone | [...] Provider Unknown | | | | | [place], [place] | [phone] | | | | | [address] | | | | | | [phone] | | | +--------+ + + + [...] + + + +---------+ + + | [place]-3 Fatty | CAPS, one capsule by | [...] | | | | | | | #[id number], exp 07/2016 | | | | | [...] | | | | | | [place] [address] | | | | | | [phone] | | | | | | | | +--------+ + + + + | 11/20/ | Implant | Cardiology | Daljit Singletary, | Remote Device | | 2018 | Monitor | | MD [place] [place] | Interrogation | | | | | [place], | (Primary Dx); | | | | | [place] [address] | Presence of | | | | | [phone] | permanent cardiac | | | | [...]
--- OUTSIDE RECORDS SUMMARY | ~2019-10-04 | XMS | Encounter Summary ---
Demographics + + + | Address | [address] | | | [place] [address] | + + + | Home Phone [...] | Author | [facility] | | | [...] Providers + +------+ + | Care Surgical Processor Name | Role | Phone | [...] Eva ROUSE | | | | | [place], [place] | [address] | | | | | [address] | [place] [address] | | | | | [phone] | [phone] | | | | | | | [...] W | | | | | | [place], | | | | | | [place] [address] | | | | | | [phone] | | | | | | | | +--------+ + + + + | 11/20/ | Implant | Cardiology | Daljit Singletary, | Remote Device | | 2018 | Monitor | | [address] | Interrogation | | | | | [place], | (Primary Dx); | | | | | [place] [address] | Presence of | | | | | [phone] | permanent cardiac | | | | [...] | | | Basophils | performed at [facility];[address] | 10*3/uL | LAB | | | | [address] | | | | | | [address];[place] [address] | | | | + + + [...] + + + + | TSI | 1.15Comment: Testing | 0.45 - 5.10 | EXTERNAL | | | | performed at TC;[address] | u[iU]/mL | LAB | | | | [address] | | | | | | [address];[place] [address] | | | | + + + [...] | | | | | | at [facility];[address] [facility] | | | | | | [facility];[place] | | | | | | [address] | | | | + + + [...]
--- OUTSIDE RECORDS SUMMARY | ~2019-10-04 | XMS | Encounter Summary ---
Demographics + + + | Address | [address] | | | [place] [address] | + + + | Home Phone [...] Team Providers + +------+ + | Care Interventional Radiology Tech Name | Role | Phone | [...] + + | 04/10/ | Telephone | [facility] | Matthew Uriarte | Surgery Appointment | | 2019 | | [address] | MD Tawanna [address] | | | | | [place], [place] | [place], [place] | | | | | [address] | [address] | | | | | [phone] | | | +--------+ + + + [...] | | | | | | [place] [id number] | | | | | | [phone] | | | | | | | | +--------+ + + + + | 11/20/ | Implant | Cardiology | Daljit Singletary, | Remote Device | | 2018 | Monitor | | MD [address] | Interrogation | | | | | [place], | (Primary Dx); | | | | | [place] [id number] | Presence of | | | | | [phone] | permanent cardiac | | | | [...]
--- OUTSIDE RECORDS SUMMARY | ~2019-10-04 | XMS | Encounter Summary ---
Demographics + + + | Address | [address] | | | [place] [address] | + + + | Home Phone [...] Providers + +------+ + | Care Inside Account Representative Name | Role | Phone | + +------+ + | Kirk French MD | PCP | | + +------+ + Encounter Details +--------+ + + + + | Date | Type | Department | Care Team | Description | +--------+ + + + + | 07/21/ | Hospital | [facility] | Daljit Singletary, | Palpitations; | | 2018 | Encounter | MED CTR NUCLEAR | MD [address] | Presence of | | | | MEDICINE [address] [place], | permanent cardiac | | | | [place], | [place] [address] | pacemaker; | | | | [address] | [phone] | Sinoatrial node | | | | [phone] | | dysfunction (HCC) | +--------+ + [...] | | | | | | [place] [address] | | | | | | [phone] | | | | | | | | +--------+ + + + + | 11/20/ | Implant | Cardiology | SunshinecherelleDaljit, | Remote Device | | 2019 | Monitor | | [address] [facility] | Interrogation | | | | | [place], | (Primary Dx); | | | | | [place] [address] | Presence of | | | | | [phone] | permanent cardiac | | | | [...] At | + + + | Dajlit Singletary MD 08/25/2018 13:12 Wireless even study from | [facility] | | 07/21 until 08/22/2018. [...]
--- OUTSIDE RECORDS SUMMARY | ~2019-10-04 | XMS | Encounter Summary ---
Demographics + + + | Address | [address] | | | [place] [address] | + + + | Home Phone [...] Providers + +------+ + | Care Security Installation Technician Name | Role | Phone [...] [place] | | | | | | [address] | | | | | | [phone] | | | +--------+ + + + [...] | | | | | | [place], | | | | | | [place] [address] | | | | | | [phone] | | | | | | | | +--------+ + + + + | 11/20/ | Implant | Cardiology | Daljit Singletary, | Remote Device | | 2018 | Monitor | | [address] [facility] | Interrogation | | | | | [place], | (Primary Dx); | | | | | [place] [address] | Presence of | | | | | [phone] | permanent cardiac | | | | [...]
--- OUTSIDE RECORDS SUMMARY | ~2019-10-04 | XMS | Encounter Summary ---
Demographics + + + | Address | [address] | | | [place] [address] | + + + | Home Phone [...] | [facility] With [facility] | | | [...] Team Providers + +------+ + | Care Nylon Machine Operator Name | Role | Phone | + +------+ + | Kirk French MD | PCP | | + +------+ + Encounter Details +--------+ + + + + | Date | Type | Department | Care Team | Description | +--------+ + + + + | 01/05/ | Hospital | [facility] | Emmanuel Daniel MD | Functional diarrhea | | 2019 | Encounter | MED CTR MP INTRA OP | [address], [place] | (Primary Dx); Weight | | | | [address] | [address] [place], [place] | loss | | | | [place], [place] | [address] | | | | | [address] | | | | | | [phone] | | | +--------+ + + + [...] for a few hours. Date Last Reviewed: 09/22/201619995909-8861 [employer]. [address] [place] [address], [place] [address]. All righ ts reserved. This information is [...] vomiting, or vomiting blood Date Last Reviewed: 05/22/201619997671-8636 [employer]. [address] [place] [address]. All [facility] ts reserved. This information is not [...] You can't be awakened Date Last Reviewed: 09/08/201619993877-2545 [employer] [place] [address], [place] [address]. All righ ts reserved. This information is [...] + + + +---------+ + + | [place]-3 Fatty | CAPS, one capsule by | [...] | | | | | | [place] [address] | | | | | | [phone] | | | | | | | | +--------+ + + + + | 11/20/ | Implant | Cardiology | Daljit Singletary, | Remote Device | | 2018 | Monitor | | MD [address] | Interrogation | | | | | [place], | (Primary Dx); | | | | | [place] [address] | Presence of | | | | | [phone] | permanent cardiac | | | | [...] [address], | REFERENCE LAB | | [place], [place] [address] Home Child Care Provider: Miguel Galarza MD, Phone: | [facility] | | [phone] | | + + + + + + + + | Performing | Address | City/State/Zipcode | Phone Number | | Organization | | | | + + + + + | REFERENCE LAB | [address] | [place] [address] | [phone] | | [facility] | Drive [...] [address], | REFERENCE LAB | | [place], [place] [address] Home Child Care Provider: Miguel Galarza MD, Phone: | [facility] | | [phone] | | + + + + + + + + | Performing | Address | City/State/Zipcode | Phone Number | | Organization | | | | + + + + + | REFERENCE LAB | [address] | [place] [address] | [phone] | | [facility] | [facility] | | | + + + + [...] [address] | [place] | [phone] | | [facility] | | [address] | | | - LABORATORY | | [...] Negative for toxigenic | | [facility] | | | GDH Antigen | Clostridium [...] [address] | [place] | [phone] | | [facility] | | [address] | | | - LABORATORY | | [...] | | dium | | | [facility] | | | Antigen | [...] [address] | [place] | [phone] | | [facility] | | [address] | | | - LABORATORY | | [...] [address] | [place] | [phone] | | [facility] | | [address] | | | - LABORATORY | | [...] [address] | [place] | [phone] | | [facility] | | [address] | | | - LABORATORY | | [...] ST. | [address] | [place], [place] | [phone] | | [facility] | | [address] | | | - LABORATORY | | | | + + + + + BERNARDD (01/05/2019 8:36 AM PST) + + | Specimen | + + | | + + + + -+ | Narrative | Performed At | + + -+ | | [facility] | | GastroenterologyPatient Name: Moe Venegas Date: | PROVATION | | 01/05/2019 8:36 AMMRN: [id number] #: [id number] of : | | | 9Admit Type: AmbulatoryAge: 58Room: [facility] 01Gender: MaleNote | | | Status: FinalizedAttending MD: Emmanuel Daniel , [facility]cedure: | | | Upper GI endoscopyIndications: Diarrhea, Weight | | | lossProviders: Emmanuel Daniel MD, Heidi An, | | | RN, Kim Hicks, Equine Breeder, | | | Jarett Barakat MD (Anesthesia [...] physician, the nurse, the anesthesiologist and the forest ranger technician | | | in the endoscopy [...] | | Imaging was performed using the [employer]elligent Chromo | | | Endoscopy (FICE) [...] Scope In: 8:43:57 AMScope Out: 8:49:50 AM [facility]. | | | [facility], [address] [place] [address] | | | [phone] | | |Recommendation: | | | - [...] |Scope Out: 8:49:50 AM | | | [facility], [address] [facility], [place], [place] | | | [address] | | + + -+ + +---------+ [...] | PROVATION | | 01/05/2019 8:36 AMMRN: [id number] #: [id number] of : | | | 9Admit Type: AmbulatoryAge: 58Room: [facility] 01Gender: MaleNote | | | Status: FinalizedAttending MD: Emmanuel Daniel , [facility]cedure: | | | ColonoscopyIndications: Clinically significant diarrhea of | | | unexplained origin, Weight lossProviders: | | | Emmanuel Daniel MD, Heidi An RN, [place] | | | Fiorella Hicks, Equine Breeder, Jarett Sapna | | | MD Roshni [...] | | | the anesthesiologist and the forest ranger technician in the endoscopy suite. | | [...] AMScope Out: | | | 9:06:28 AM [facility], [address] [place] [address], | | | [place] [address] | | | - Discharge patient to [...] |Scope Out: 9:06:28 AM | | | [facility], [address] [place] [address], [place], [place] | | | [address] | | + + -+ + +---------+ [...] | | | (atherosclerotic heart disease of [place] coronary artery without | | | angina [...] chronic or | | | microscopic colitis. BES:[facility]:C3NR GROSS DESCRIPTION: A. The | | | specimen, labeled "[place], duodenal biopsy" is received in formalin | | | and consists of seven 0.1-0.5 cm lin fragments. Entirely submitted in | | | (A1). B. The specimen, labeled "[place], right colon" is received | | | in formalin and consists of six 0.2-0.3 cm lin fragments. Entirely | | | submitted in (B1). C. The specimen, labeled "[place], left colon" | | | is received in formalin and consists of six 0.2-0.3 cm lni-pink | | | fragments. Entirely submitted in (C1). am:AMB:portillo PERFORMING | | | LABORATORY: The technical component was performed by [facility] | | | [facility], [address] [place] [address] (Ultimate Hoops Referee: | | | Kailey Stafford MD; CLIA# [id number]). Professional interpretation was | | | performed by [facility], [facility], [address] | | [address] [place] [address] (Ultimate Hoops Referee: [place] | Shanique Dao M.D.; LAYNE#: [id number]). Diagnostician: [place] | | Sylwia WINKLER [...] ONCE PRN, Wheezing, | | | Starting [facility] 01/05/19 at 0924, | | | [...] | mL/hr | | | CONTINUOUS, Starting [facility] 01/05/19 | | AM PST | | | | | at 0800, Pre-op | | | | | | + +---------+ +---+-------+---+ + +---+ | | | + +---+ | ondansetron (ZOFRAN) injection | | | 4 mg 4 mg, Oral, EVERY 4 HOURS | | | PRN, Nausea, Vomiting, Starting | | | [facility] 01/05/19 at 0924, | | | Recovery/Phase I | | + +---+ | | | + +---+ | ondansetron (ZOFRAN) injection | | | 4 mg 4 mg, Intravenous, ONCE | | | PRN, Nausea, Starting [facility] 01/05/19 | | | at 0924, For 1 dose, | | | Recovery/Phase I | | + +---+ | | | + +---+ documented in this encounter
--- OUTSIDE RECORDS SUMMARY | ~2019-10-04 | XMS | Encounter Summary ---
Demographics + + + | Address | [address] | | | [place] [address] | + + + | Home Phone [...] Team Providers + +------+ + | Care Mammalogist Name | Role | Phone | + [...] + + | 09/09/ | Office | [facility] | Michael Amanda, | Hyperlipidemia; | | 2011 | Visit | [facility] | DO [address] | Hypertension; | | | | [address] | [place] | Chronic pain | | | | [place] | [address] | syndrome; Neck pain, | | | | [address] | | chronic | | | | [phone] | | | +--------+---------+ + + + [...] slowly cutting back. Pt was going through [facility] for opiate medications prior to [...] W | | | | | | [place], | | | | | | [place] [address] | | | | | | [phone] | | | | | | | | +--------+ + + + + | 11/20/ | Implant | Cardiology | Daljit Singletary, | Remote Device | | 2019 | Monitor | | MD [address] [facility] | Interrogation | | | | | [place], | (Primary Dx); | | | | | [place] [address] | Presence of | | | | | [phone] | permanent cardiac | | | | [...]
--- OUTSIDE RECORDS SUMMARY | ~2019-10-04 | XMS | Encounter Summary ---
Demographics + + + | Address | [address] [place] [address] | | | [place] [address] | + + + | Home Phone [...] [place] | | | | | [address] | | + + + + + Care Team Providers + +------+ + | Care Field Pipelines Supervisor Name | Role | Phone | [...] | | Bradycardia | | | | [place], [place] | | | | | | [address] | | | | | | [phone] | | | +--------+------+ + + + [...] Way Lab) | [facility] | | [facility] [place] [address] | REGIONAL | | [place] [address] | LABORATORY | + + + + + + + + | Performing | Address | City/State/Zipcode | Phone Number | | Organization | | | | + + + + + | [facility] | [address] | [place] [address] | | | LABORATORY | | | [...] ([address]) | | | [facility] [address] | | | [place] [address] | | + + + + + + + + | Performing | Address | City/State/Zipcode | Phone Number | | Organization | | | | + + + + + | [facility] | [address] | [place] [address] | | | LABORATORY | | | [...] | | | DEPARTMENT | | | ITALIAN | | | OF | | | [...] DEPARTMENT OF | [address] | [place] [address] | | | PATHOLOGY | [address] | | | + + + + + documented in this encounter Visit Diagnoses + + | Diagnosis | + + | Chest pain Chest pain, unspecified | + + | Bradycardia Other specified cardiac dysrhythmias | + + documented in this encounter"
--- OUTSIDE RECORDS SUMMARY | ~2019-10-04 | XMS | Encounter Summary ---
Demographics + + + | Address | [address] | | | [place] [address] | + + + | Home Phone [...] Providers + +------+ + | Care Mud Trucker Name | Role | Phone | + +------+ + | Kirk French MD | PCP | | + +------+ + Encounter Details +--------+---------+ + + + | Date | Type | Department | Care Team | Description | +--------+---------+ + + + | 09/26/ | Office | [facility] | Kirk French | Weight loss (Primary | | 2018 | Visit | [facility] | MD [address] | Dx); Bipolar | | | | [facility] [address] | affective disorder, | | | | [address] | [place] [address] | remission status | | | | [place], [place] | [phone] | unspecified (HCC); | | | | [address] | | Mixed anxiety | | | | [phone] | | depressive disorder; | | | [...] Premature ventricular contraction [facility] health care 06/26/2013 LAST PSA:12/16/2010 RESULT:0.14 [...] CV LHC; Surgeon: Daljit Singletary MD; Location: [facility] CV LAB CARDIAC CATHERIZATION N/A 01/25/2019 Procedure: CV Cor Angio; Surgeon: Daljit Singletary MD; Location: [facility] CV LAB COLONOSCOPY N/A 12/24/2017 Procedure: COLONOSCOPY; Surgeon: Emmanuel Daniel MD; Location: [facility] MEDICAL PROCEDURE UNIT COLONOSCOPY N/A 01/05/2019 Procedure: COLONOSCOPY; Surgeon: Emmanuel Daniel MD; Location: [facility] MEDICAL PROCEDURE UNIT EGD 12/24/2017 HARDWARE [...] Procedure: EGD; Surgeon: Emmanuel Daniel MD; Location: [facility] MEDICAL PROCEDURE UNIT UPPER GASTROINTESTINAL ENDOSCOPY N/A 01/05/2019 Procedure: EGD; Surgeon: Emmanuel Daniel MD; Location: [facility] MEDICAL PROCEDURE UNIT URETEROSCOPY Left 04/13/2019 Procedure: Cystoscopy, Left ureteroscopy with laser lithotripsy, Left ureteral stent place ment; Surgeon: Matthew Uriarte MD; Location: [facility] MAIN OR VASECTOMY Social History Socioeconomic [...] NEEDED FOR CHEST PAIN 250 tablet 0 [place]-3 Fatty Acids (SALMON OIL-1000 PO) CAPS, one capsule by mouth daily twice daily ondansetron (ZOFRAN ODT) 4 mg disintegrating tablet Take 4 mg by mouth every 8 hours as needed for Nausea. ONE TOUCH DELICA LANCETS [facility] [...] PLT 169 06/02/2019 No results found for: VLJYNEXC49 No results found for: FOLATE No results [...] Co multiple ER visits Going again to [facility] tomorrow Already followed by GI [...] dollars a month. We will defer to [facility], perhaps to have some sort [...] | | | | | | [place] [address] | | | | | | [phone] | | | | | | | | +--------+ + + + + | 11/20/ | Implant | Cardiology | Daljit Singletary, | Remote Device | | 2018 | Monitor | | MD [address] | Interrogation | | | | | [place], | (Primary Dx); | | | | | [place] [address] | Presence of | | | | | [phone] | permanent cardiac | | | | [...]
--- OUTSIDE RECORDS SUMMARY | ~2019-10-04 | XMS | Encounter Summary ---
Demographics + + + | Address | [address] | | | [place] [address] | + + + | Home Phone [...] Providers + +------+ + | Care Art Consultant Name | Role | Phone | [...] [address] | | | | | | [place], [place] | (Fax) | | | | | [address] | | | | | | [phone] | | | +--------+ + + + [...] | | | | | | [place] [address] | | | | | | [phone] | | | | | | | | +--------+ + + + + | 11/20/ | Implant | Cardiology | Daljit Singletary, | Remote Device | | 2018 | Monitor | | [address] [facility] | Interrogation | | | | | [place] [place], | (Primary Dx); | | | | | [place] [address] | Presence of | | | | | [phone] | permanent cardiac | | | | [...]
--- OUTSIDE RECORDS SUMMARY | ~2019-10-04 | XMS | Encounter Summary ---
Demographics + + + | Address | [address] | | | [place] [address] | + + + | Home Phone [...] + + +---------+ + | Maria Isabel Sacnhez | ECON | Unknown | | + + +---------+ + Care Team Providers + +------+ + | Care Battery Container Inspector Name | Role | Phone | [...] Provider Unknown | | | | | [place], [place] | [phone] | | | | | [address] | | | | | | [phone] | | | +--------+ + + + [...] | | | | | | [place] [address] | | | | | | [phone] | | | | | | | | +--------+ + + + + | 11/20/ | Implant | Cardiology | Daljit Singletary, | Remote Device | | 2019 | Monitor | | [address] [facility] | Interrogation | | | | | [place], | (Primary Dx); | | | | | [place] [address] | Presence of | | | | | [phone] | permanent cardiac | | | | [...]
--- OUTSIDE RECORDS SUMMARY | ~2019-10-04 | XMS | Encounter Summary ---
Demographics + + + | Address | [address] | | | [place] [address] | + + + | Home Phone [...] Providers + +------+ + | Care Rental Boats Caretaker Name | Role | Phone | + +------+ + PCP | Unavailable | + +------+ + Encounter Details +--------+ + + + + | Date | Type | Department | Care Team | Description | +--------+ + + + + | 04/22/ | Hospital | [facility] | | | | 2011 | Encounter | MED CTR XRAY [address] | | | | | | [place] | | | | | | [place] [address] | | | | | | [phone] | | | +--------+ + + + [...] + + + +---------+ + + | [place]-3 Fatty | CAPS, one capsule by | [...] | | | | | | [place] [address] | | | | | | [phone] | | | | | | | | +--------+ + + + + | 11/20/ | Implant | Cardiology | Daljit Singletary, | Remote Device | | 2018 | Monitor | | MD [address] | Interrogation | | | | | [address] [place], | (Primary Dx); | | | | | [place] [address] | Presence of | | | | | [phone] | permanent cardiac | | | | [...] At | + + + | [facility] Diagnostic Imaging Department | [facility] | | [address] [facility] [address] | [facility] | | CT MYELOGRAM LUMBAR [...] Transcribed Date/Time: | | | 04/23/2012 11:06 Resort Desk Clerk: <Electronically Signed | | | by Jama Solis MD> 04/24/12 0730 | | + + + + + | Procedure Note | + + | Kevin, Rad Conversion - 12/29/2013 5:27 PM [facility] | | Diagnostic Imaging Department [address] [place] [address] | | CT MYELOGRAM LUMBAR SPINE, 04/22/2012 [...] <Electronically Signed by Jama Solis MD> 04/24/12 1730 | | | |L3-4: Minimal broad-based disk [...] 10:54 | |Transcribed Date/Time: 04/23/2012 11:06 | |Resort Desk Clerk: | |<Electronically Signed by Jama Solis MD> 04/24/12 7330 | + + + +---------+ + + [...] At | + + + | [facility] Diagnostic Imaging Department | [facility] | | [address] | [facility] | | THORACIC CT MYELOGRAM [...] Transcribed Date/Time: 04/22/2012 17:32 | | | Resort Desk Clerk: <Electronically Signed by Jama Mason | | | MD Will> 04/23/12 1039 | | + + + + + | Procedure Note | + + | Kalpesh Brown Conversion - 12/29/2013 5:27 PM [facility] | | Diagnostic Imaging Department [address] [place] [address] | | THORACIC CT MYELOGRAM CLINICAL HISTORY: [...] 16:56 | |Transcribed Date/Time: 04/22/2012 17:32 | |Resort Desk Clerk: | |<Electronically Signed by Jama Solis [...] At | + + + | [facility] Diagnostic [facility] Department | [facility] | | [address] | [facility] | | CT MYELOGRAM CERVICAL [...] Similar study from | | | 09/02/2009, [facility]. FINDINGS: Firm bony ankylosis | [...] Transcribed Date/Time: | | | 04/22/2012 17:25 Resort Desk Clerk: <Electronically Signed | | | by Jama Solis MD> 04/23/12 1039 | | + + + + + | Procedure Note | + + | Kalpesh Brown Conversion - 12/29/2013 5:27 PM [facility] | | Diagnostic Imaging Department | [...] | | COMPARISON: Similar study from 09/02/2009, [facility]. | | | | FINDINGS: [...] | Transcribed Date/Time: 04/22/2012 17:25 | | Resort Desk Clerk: | | <Electronically Signed by Jama [...] At | + + + | [facility] Diagnostic Imaging Department | [facility] | | [address] | [facility] | | LUMBAR MYELOGRAM INJECTION [...] Transcribed Date/Time: 04/22/2012 16:36 | | | Resort Desk Clerk: <Electronically Signed by Jama Mason | | | MD Will> 04/23/12 1039 | | + + + + + | Procedure Note | + + | Kalpesh Brown Conversion - 12/29/2013 5:27 PM [facility] | | Diagnostic Imaging Department [address] [place] [address] | | LUMBAR MYELOGRAM INJECTION FOR CT [...] 15:51 | |Transcribed Date/Time: 04/22/2012 16:36 | |Resort Desk Clerk: | |<Electronically Signed by Jama Solis [...]
--- OUTSIDE RECORDS SUMMARY | ~2019-10-04 | XMS | Encounter Summary ---
Demographics + + + | Address | [address] | | | [place] [address] | + + + | Home Phone [...] + | 11/05/ | Telephone | [facility] | Daljit Singletary, | Chest Pain | | 2016 | | CARDIOLOGY [address] | MD [address] [place] | | | | | [place], | [place], | | | | | [place] [address] | [place] [address] | | | | | [phone] | [phone] | | | | | | | [...] | | | | | | [place], | | | | | | [place] [address] | | | | | | [phone] | | | | | | | | +--------+ + + + + | 11/20/ | Implant | Cardiology | Daljit Singletary, | Remote Device | | 2018 | Monitor | | MD [address] [place] [address] | Interrogation | | | | | [place], | (Primary Dx); | | | | | [place] [address] | Presence of | | | | | [phone] | permanent cardiac | | | | [...]
--- OUTSIDE RECORDS SUMMARY | ~2019-10-04 | XMS | Encounter Summary ---
Demographics + + + | Address | [address] | | | [place] [address] | + + + | Home Phone [...] Providers + +------+ + | Care Lens Cleaner Name | Role | Phone | + +------+ + PCP | Unavailable | + +------+ + Encounter Details +--------+ + + + + | Date | Type | Department | Care Team | Description | +--------+ + + + + | 02/01/ | [facility] | [facility] | Evan Gandara MD | | | 2008 - | Encounter | MED CTR MED ONC | [address] [facility] | | | | | [address] [place] | [place] | | | 02/06/ | | [place] [address] | [address] | | | 2008 | | [phone] | | | +--------+ + + + [...] | | | | | | [place] [address] | | | | | | [phone] | | | | | | | | +--------+ + + + + | 11/20/ | Implant | Cardiology | Daljit Singletary, | Remote Device | | 2019 | Monitor | | MD [address] | Interrogation | | | | | [place], | (Primary Dx); | | | | | [place] [address] | Presence of | | | | | [phone] | permanent cardiac | | | | [...]
--- OUTSIDE RECORDS SUMMARY | ~2019-10-04 | XMS | Encounter Summary ---
Demographics + + + | Address | [address] | | | [place] [address] | + + + | Home Phone [...] Providers + +------+ + | Care Ham Stripper Name | Role | Phone | [...] + | 12/23/ | Telephone | [facility] | Daljit Singletary, | Other (question | | 2015 | | CARDIOLOGY [address] | [address] [place] | about diet | | | | [place], | [place], | medication) | | | | [place] [address] | [place] [address] | | | | | [phone] | [phone] | | | | | | | [...] W | | | | | | [place], | | | | | | [place] [address] | | | | | | [phone] | | | | | | | | +--------+ + + + + | 11/20/ | Implant | Cardiology | Daljit Singletary, | Remote Device | | 2018 | Monitor | | MD [address] [place] | Interrogation | | | | | [place], | (Primary Dx); | | | | | [place] [address] | Presence of | | | | | [phone] | permanent cardiac | | | | [...]
--- OUTSIDE RECORDS SUMMARY | ~2019-10-04 | XMS | Encounter Summary ---
Demographics + + + | Address | [address] | | | [place] [address] | + + + | Home Phone [...] Team Providers + +------+ + | Care Buffing And Polishing Wheel Repairer Name | Role | Phone | + +------+ + | Michael Amanda DO | PCP | | + +------+ + Encounter Details +--------+ + + + + | Date | Type | Department | Care Team | Description | +--------+ + + + + | 09/22/ | Hospital | [facility] | Bahman Gant MD | | | 2012 | Encounter | MED CTR XRAY [address] | [address] [place] | | | | | [place] | [address] [place], | | | | | [place] [address] | [place] [address] | | | | | [phone] | | | | | | | [...] + + + +---------+ + + | [place]-3 Fatty | CAPS, one capsule by | [...] W | | | | | | [place], | | | | | | [place] [address] | | | | | | [phone] | | | | | | | | +--------+ + + + + | 11/20/ | Implant | Cardiology | Daljit Singletary, | Remote Device | | 2019 | Monitor | | MD [address] | Interrogation | | | | | [place], | (Primary Dx); | | | | | [place] [address] | Presence of | | | | | [phone] | permanent cardiac | | | | [...]
--- OUTSIDE RECORDS SUMMARY | ~2019-10-04 | XMS | Encounter Summary ---
Demographics + + + | Address | [address] | | | [place] [address] | + + + | Home Phone [...] Providers + +------+ + | Care Job Cost Estimator Name | Role | [...] abdominal | [address] | [address], | | | | | pain | [address] | [address] | | | | | Chronic pain | [address] | [place], | | | | | syndrome | [place], [place] | [place] [address] | | | | | Procedures | [address] | Phone: | | | | | Office Visit | Phone: | [phone] | | | | | | [phone] | Fax: | | | | | | Fax: | [phone] | | | | | | [phone] | | +--------+--------+ + + + + Encounter Details +--------+---------+ + + + | Date | Type | Department | Care Team | Description | +--------+---------+ + + + | 12/02/ | Office | [facility] [place] | Emmanuel Daniel MD | Diarrhea, | | 2018 | Visit | GASTROENTEROLOGY | [address], [place] | unspecified type | | | | [address] | [address] [place], [place] | (Primary Dx); Weight | | | | [address] [place], [place] | [address] | loss, | | | | [address] | | unintentional; | | | | [phone] | | Generalized | | | | [...] | | | | | | [place] [address] | | | | | | [phone] | | | | | | | | +--------+ + + + + | 11/20/ | Implant | Cardiology | Daljit Singletary, | Remote Device | | 2018 | Monitor | | MD [address] | Interrogation | | | | | [place], | (Primary Dx); | | | | | [place] [address] | Presence of | | | | | [phone] | permanent cardiac | | | | [...]
--- OUTSIDE RECORDS SUMMARY | ~2019-10-04 | XMS | Encounter Summary ---
Demographics + + + | Address | [address] | | | [place] [address] | + + + | Home Phone [...] Providers + +------+ + | Care Automotive Quality Engineer Name | Role | Phone | + +------+ + | Kirk French MD | PCP | | + +------+ + Encounter Details +--------+ + + + + | Date | Type | Department | Care Team | Description | +--------+ + + + + | 10/25/ | Hospital | [facility] | Kirk French | Chronic pain | | 2017 | Encounter | MED CTR ULTRASOUND | MD Bre[address] | disorder; Stomach | | | | [address] [place] | [address] | ache; Obesity, | | | | [place], [place] | [place] [address] | unspecified | | | | [address] | [phone] | classification, | | | | [phone] | | unspecified obesity | | | [...] + + + +---------+ + + | [place]-3 Fatty | CAPS, one capsule by | [...] | | | | | | [place], | | | | | | [place] [address] | | | | | | [phone] | | | | | | | | +--------+ + + + + | 11/20/ | Implant | Cardiology | Daljit Singletary, | Remote Device | | 2018 | Monitor | | [address] [facility] | Interrogation | | | | | [place], | (Primary Dx); | | | | | [place] [address] | Presence of | | | | | [phone] | permanent cardiac | | | | [...]
--- OUTSIDE RECORDS SUMMARY | ~2019-10-04 | XMS | Encounter Summary ---
Demographics + + + | Address | [address] | | | [place] [address] | + + + | Home Phone [...] Providers + +------+ + | Care Screen Machine Operator Name | Role | Phone | + +------+ + | Kirk French MD | PCP | | + +------+ + Encounter Details +--------+ + + + + | Date | Type | Department | Care Team | Description | +--------+ + + + + | 01/05/ | Anesthesia | [facility] | Jarett Barakat | | | 2019 | Event | MED CTR MP INTRA OP | P, MD [address] | | | | | [address] | [address] [place], [place] | | | | | [place], [place] | [address] | | | | | [address] | [phone] | | | | | [phone] | | | +--------+ + + + [...] | 01/05/19950 by | | eral | pduu-nse-tcevlt catheter system; | Kasie Natarajan RN | [...] | | | | | | [place] [address] | | | | | | [phone] | | | | | | | | +--------+ + + + + | 11/20/ | Implant | Cardiology | Daljit Singletary, | Remote Device | | 2018 | Monitor | | [address] [facility] | Interrogation | | | | | [place], | (Primary Dx); | | | | | [place] [address] | Presence of | | | | | [phone] | permanent cardiac | | | | [...] | | | | | Vomiting, Starting [facility] 01/05/19 at | | AM PST [...]
--- OUTSIDE RECORDS SUMMARY | ~2019-10-04 | XMS | Encounter Summary ---
Demographics + + + | Address | [address] | | | [place] [address] | + + + | Home Phone [...] Providers + +------+ + | Care Toolroom Clerk Name | Role | Phone | [...] 2014 | | CARDIOLOGY [address] | TERRITORY SERVICE REPRESENTATIVE [address] | | | | | [place], | St [place], [place] | | | | | [place] [address] | [address] | | | | | [phone] | | | +--------+ + + + [...] [place], | | | | | | [place] [address] | | | | | | [phone] | | | | | | | | +--------+ + + + + | 11/20/ | Implant | Cardiology | Daljit Singletary, | Remote Device | | 2018 | Monitor | | MD [address] | Interrogation | | | | | [address] [place], | (Primary Dx); | | | | | [place] [address] | Presence of | | | | | [phone] | permanent cardiac | | | | [...]
--- OUTSIDE RECORDS SUMMARY | ~2019-10-04 | XMS | Encounter Summary ---
Demographics + + + | Address | [address] | | | [place] [address] | + + + | Home Phone [...] + +------+ + | Care Resident Care Coordinator Name | Role | Phone [...] | | | pain | [address] | [address] | | | | | Procedures | [place] | [place], | | | | | [place] Nuclear | [place] | [place] | | | | | Stress Test | [address] | [address] | | | | | (Vasodilator | Phone: | Phone: | | | | | ) CHG | [phone] | [phone] | | | | | MYOCARDIAL | Fax: | Fax: | | | | | SPECT | [phone] | [phone] | | | | | MULTIPLE | | | | | | | STUDIES | | | +--------+--------+ + + + + Encounter Details +--------+ + + + + | Date | Type | Department | Care Team | Description | +--------+ + + + + | 12/06/ | Hospital | [facility] | Geri Angel, | Other chest pain | | 2013 | Encounter | MED CTR XRAY [address] | CEMENT LOADER [address] | | | | | [place] | [place] | | | | | [place] [address] | [address] | | | | | [phone] | | | +--------+ + + + [...] + + +---------+ + + | [place]-3 Fatty | CAPS, one capsule by | [...] | | | | | | [place], | | | | | | [place] [address] | | | | | | [phone] | | | | | | | | +--------+ + + + + | 11/20/ | Implant | Cardiology | Daljit Singletary, | Remote Device | | 2018 | Monitor | | [address] | Interrogation | | | | | [place], | (Primary Dx); | | | | | [place] [address] | Presence of | | | | | [phone] | permanent cardiac | | | | [...] [place] [facility] Diagnostic Imaging | [facility] | | Department [address] [facility] | [facility] | | [ rep ct [phone]] [ rep [facility] | | st zip] Signed | - IMAGING | | | | | Patient Name: MOE GAY | | | Physician: JACKLYN : 1960 Age: 53 Sex: M Unit | | | #: [id number] Exam Date: 12/06/13 Location: | | | [facility] Report #: [id number] Page: | | | %(RAD)RES..mtdd.print.filter("pg") of %(RAD) | | | RES..mtdd.print.filter("tpg") | | | | | | Accession Number: [id number] | | | PERSANTINE SESTAMIBI STRESS TEST, [...] Transcribed Date/Time: 12/07/2013 08:18 | | | Inspector And Adjuster Golf Club Head: <<Signature on File>> | | | | | | Daljit Singletary MD MERGED WITH [facility] FASE12/07/13 1321 <Electronically signed | | | by Daljit Singletary MD, FACC, FACP, FASE, FASNC> Daljit | | | MD CLEOPATRA Singletary 12/07/13 0701 Inspector And Adjuster Golf Club Head: Jessica | | | Hklknqokeveyd09/16/14 0818 PARISA Garcia | | + + + + + + + + | Performing | Address | City[facility] | Phone Number | | Organization | | | | + + + + + | [address] | [address] | [place] | [phone] | | [facility] | | [address] | | | - IMAGING | | | | + + + + + documented in this encounter Visit Diagnoses + + | Diagnosis | + + | Other chest pain | + + documented in this encounter
--- OUTSIDE RECORDS SUMMARY | ~2019-10-04 | XMS | Encounter Summary ---
Demographics + + + | Address | [address] | | | [place] [address] | + + + | Home Phone [...] + +------+ + | Care Financial Planning Consultant Name | Role | Phone | [...] | Cardiology | Diagnoses | [place], | Gemnii, | | | | | Chest pain, | Michael Olvera MD | MD Daljit | | | | | unspecified | [address] | | | | | ER FUP | [address] | [address] [place] [address] | | | | | Procedures | [place], | [place], | | | | | FUP | [place] [address] | [place] [address] | | | | | | Phone: | Phone: | | | | | | [phone] | [phone] | | | | | | Fax: | Fax: | | | | | | [phone] | [phone] | +--------+--------+ + + + + Encounter Details +--------+---------+ + + + | Date | Type | Department | Care Team | Description | +--------+---------+ + + + | 02/11/ | Office | [facility] [place] | Silvia, | Coronary artery | | 2016 | Visit | CARDIOLOGY [address] | Janeen BOILERS INSPECTOR [address] | disease involving | | | | [place], | [place], | [place] coronary | | | | [place] [address] | [place] [address] | artery of [place] | | | | [phone] | [phone] | heart without angina | | | [...] of non-critical coronary artery d isease involving [place] coronary artery of [place] heart without angina pectoris, essential h ypertension, [...] him. He sleeps on 1 pillow at [facility] without any shortness of [...] Preventative health care Coronary artery disease involving [place] coronary artery of [place] heart without angina pectoris Cannabis abuse, daily [...] evening 90 tablet 3 [facility] Natural Products [...] 3RD DOSE, CALL 911 100 tablet 3 [place]-3 Fatty Acids (SALMON OIL-1000 PO) CAPS, one [...] was found Confirmed by ANGELA MARADIAGA MD ([id number]) on 01/25/2017 6:45:26 AM LAB RESULTS reviewed [...] PLTEX 162 11/05/2016 I reviewed records from [facility] [...] is in class I of t he [place] Heart Ass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 On physical examination there are no signs of fluid overload. 2. Non-critical Coronary artery disease involving [place] coronary a rtery of [place] heart without angina pectoris: A. Normal exercise [...] stable device function. Estimated remaining [facility] longevity is 3.5 years.. 5. [...] this chart may have been created with [employer] voice recognition software. Occasi onal wrong-word or [...] | | | | | | [place] [address] | | | | | | [phone] | | | | | | | | +--------+ + + + + | 11/20/ | Implant | Cardiology | Daljit Singletary, | Remote Device | | 2019 | Monitor | | [address] [facility] | Interrogation | | | | | [place], | (Primary Dx); | | | | | [place] [address] | Presence of | | | | | [phone] | permanent cardiac | | | | [...] + + | Coronary artery disease involving [place] coronary artery of [place] heart without | | angina pectoris - Primary | + + | Essential hypertension with goal blood pressure less than 130/80 | + + | Hyperlipidemia, mixed Mixed hyperlipidemia | + + documented in this encounter
--- OUTSIDE RECORDS SUMMARY | ~2019-10-04 | XMS | Encounter Summary ---
Demographics + + + | Address | [address] | | | [place] [address] | + + + | Home Phone [...] + + + + | 06/13/ | [facility] | [facility] | Daljit Singletary, | | | 2008 | Encounter | MED CTR LABORATORY | [address] | | | | | [address] [place] | [address], | | | | | [place] | [place] [address] | | | | | [address] | [phone] | | | | | [phone] | | | +--------+ + + + [...] W | | | | | | [place], | | | | | | [place] [address] | | | | | | [phone] | | | | | | | | +--------+ + + + + | 11/20/ | Implant | Cardiology | Daljit Singletary, | Remote Device | | 2019 | Monitor | | MD [address] | Interrogation | | | | | [place], | (Primary Dx); | | | | | [place] [address] | Presence of | | | | | [phone] | permanent cardiac | | | | [...]
--- OUTSIDE RECORDS SUMMARY | ~2019-10-04 | XMS | Encounter Summary ---
Demographics + + + | Address | [address] | | | [place] [address] | + + + | Home Phone [...] Providers + +------+ + | Care Rig Site Engineer Name | Role | Phone | + +------+ + PCP | Unavailable | + +------+ + Encounter Details +--------+ + + + + | Date | Type | Department | Care Team | Description | +--------+ + + + + | 09/29/ | Hospital | [facility] | | | | 1995 | Encounter | MED CTR EMERGENCY | | | | | | [place] [address] | | | | | | [place] | | | | | | [address] | | | | | | [phone] | | | +--------+ + + + [...] | | | | | | [place] [address] | | | | | | [phone] | | | | | | | | +--------+ + + + + | 11/20/ | Implant | Cardiology | Daljit Singletary, | Remote Device | | 2018 | Monitor | | [address] [facility] | Interrogation | | | | | [place], | (Primary Dx); | | | | | [place] [address] | Presence of | | | | | [phone] | permanent cardiac | | | | [...]
--- OUTSIDE RECORDS SUMMARY | ~2019-10-04 | XMS | Encounter Summary ---
Demographics + + + | Address | [address] [place] [address] | | | [place] [address] | + + + | Home Phone [...] [place] | | | | | [address] | | + + + + + Care Team Providers + +------+ + | Care Remanufacturing Technician Name | Role | Phone | [...]
--- OUTSIDE RECORDS SUMMARY | ~2019-10-04 | XMS | Encounter Summary ---
Demographics + + + | Address | [address] | | | [place] [address] | + + + | Home Phone [...] Providers + +------+ + | Care Spring Encaser Name | Role | Phone | + [...] [address] | | | | | [place], | [place], | | | | | [place] [address] | [place] [address] | | | | | [phone] | [phone] | | | | | | | [...] W | | | | | | [place], | | | | | | [place] [address] | | | | | | [phone] | | | | | | | | +--------+ + + + + | 11/20/ | Implant | Cardiology | Daljit Singletary, | Remote Device | | 2018 | Monitor | | [address] | Interrogation | | | | | [place], | (Primary Dx); | | | | | [place] [address] | Presence of | | | | | [phone] | permanent cardiac | | | | [...]
--- OUTSIDE RECORDS SUMMARY | ~2019-10-04 | XMS | Encounter Summary ---
Demographics + + + | Address | [address] | | | [place] [address] | + + + | Home Phone [...] + | 01/25/ | Office | [facility] | Daljit Singletary, | Other chest pain | | 2012 | Visit | CARDIOLOGY [address] | [address] | (Primary Dx); PVC's | | | | [place], | 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, | (Primary Dx); | | | | | [place] [address] | Presence of | | | | | [phone] | permanent cardiac | | | | [...]
--- OUTSIDE RECORDS SUMMARY | ~2019-10-04 | XMS | Encounter Summary ---
Demographics + + + | Address | [address] | | | [place] [address] | + + + | Home Phone [...] Providers + +------+ + | Care Old Coin Dealer Name | Role | Phone | [...] | ER FUP | [address] | [address] | | | | | Procedures | [place], | [place], | | | | | FUP | [place] [address] | [place] [address] | | | | | | Phone: | Phone: | | | | | | [phone] | [phone] | | | | | | Fax: | Fax: | | | | | | [phone] | [phone] | +--------+--------+ + + + + Encounter Details +--------+---------+ + + + | Date | Type | Department | Care Team | Description | +--------+---------+ + + + | 02/11/ | Office | [facility] [place] | Silvia, | Coronary artery | | 2016 | Visit | CARDIOLOGY [address] | Janeen HEALTH INFORMATION MANAGEMENT DIRECTOR [address] | disease involving | | | | [place], | [place], | [place] coronary | | | | [place] [address] | [place] [address] | artery of [place] | | | | [phone] | [phone] | heart without angina | | | [...] of non-critical coronary artery d isease involving [place] coronary artery of [place] heart without angina pectoris, essential h [...] him. He sleeps on 1 pillow at [facility] without any shortness of breath. Overall, he has been doing well otherwise than the [facility] iety. MEDICAL, SURGICAL, AND PERSONAL HISTORY Past [...] Preventative health care Coronary artery disease involving [place] coronary artery of [place] heart without angina pectoris Cannabis abuse, [...] by mouth every evening 90 tablet 3 [facility] Natural Products [...] 3RD DOSE, CALL 911 100 tablet 3 [place]-3 Fatty Acids (SALMON OIL-1000 PO) CAPS, one [...] was found Confirmed by ANGELA MARADIAGA MD ([id number]) on 01/25/2017 6:45:26 AM LAB RESULTS reviewed [...] PLTEX 162 11/05/2016 [facility] [...] is in class I of t he [place] Heart Ass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 On physical examination there are no signs of fluid overload. 2. Non-critical Coronary artery disease involving [place] coronary a rtery of [place] heart without angina pectoris: A. Normal exercise [...] to go back in 3 days to [place] for an attempt of ablation under general [...] a normal stable device function. Estimated remaining [facility] longevity is 3.5 years.. 5. Lightheadedness [...] this chart may have been created with [employer] voice recognition software. Occasi onal wrong-word or [...] | | | | | | [place] [address] | | | | | | [phone] | | | | | | | | +--------+ + + + + | 11/20/ | Implant | Cardiology | Daljit Singletary, | Remote Device | | 2019 | Monitor | | [address] [facility] | Interrogation | | | | | [place], | (Primary Dx); | | | | | [place] [address] | Presence of | | | | | [phone] | permanent cardiac | | | | [...] + + | Coronary artery disease involving [place] coronary artery of [place] heart without | | angina pectoris - Primary | + + | Essential hypertension with goal blood pressure less than 130/80 | + + | Hyperlipidemia, mixed Mixed hyperlipidemia | + + documented in this encounter
--- OUTSIDE RECORDS SUMMARY | ~2019-10-04 | XMS | Encounter Summary ---
Demographics + + + | Address | [address] | | | [place] [address] | + + + | Home Phone [...] Provider Unknown | | | | | [place], [place] | [phone] | | | | | [address] | | | | | | [phone] | | | +--------+ + + + [...] + + +---------+ + + | Center [place]-3 Fatty | CAPS, one capsule by | [...] | | | | | | [place] [address] | | | | | | [phone] | | | | | | | | +--------+ + + + + | 11/20/ | Implant | Cardiology | Daljit Singletary, | Remote Device | | 2018 | Monitor | | [address] [facility] | Interrogation | | | | | [place], | (Primary Dx); | | | | | [place] [address] | Presence of | | | | | [phone] | permanent cardiac | | | | [...]
--- OUTSIDE RECORDS SUMMARY | ~2019-10-04 | XMS | Clinical Summary ---
Demographics + + + | Address | [address] | | | [place] [address] | + + + | Home Phone [...] Providers + +------+ + | Care Supervisor Salvage Name | Role | Phone | + [...] | | + + + +---------+------+------+-------+ | Hercules-3 Fatty | CAPS, one capsule by | [...] | | | | | | | menominee coronary | | | | | | | | artery of menominee | | | | | | | [...] | 30 | 1 | 02/0 | 11/0 | Disco | | (BENTYL) 20 MG | mouth 3 times daily | tablet | | 4/20 | 5/20 | ntinu | | tablet | as needed. Before | | | 19 | 19 | ed | | | meals | | | | | (Reor | | | | | | | | good) | + + + +---------+------+------+-------+ | amLODIPine | Take 1 tablet by | 30 | 11 | / | | Disco | | (NORVASC) 5 mg | mouth Daily. | tablet | | 2/20 | 5/20 | ntinu | | tablet | | | | 19 | 19 | ed | | | | | | | | (Reor | | | | | | | | good) [...] + | Overview: Lower back injury (From [facility]) 1980 1984 | + + + + [...] disease involving menominee coronary artery of | 12/21/2013 | | menominee heart without angina pectoris | | + [...] attenuation cannot | | completely be ruled out.[facility] 12/25/13, shows non critical [...] | | CT Angiogram chest w/constrast 05/26/14 [facility] | + + + + [...] back in 3 days to | | [place] for an attempt of ablation under general [...] IMPLANTED GENERATOR | | Medtronic DDD [id number] [id number] 06/14/09 RV LEAD Medtronic Active | | Bipolar CapSureFix 4076 [id number] 06/14/09 A LEAD Medtronic | | Active Bipolar CapSurFix 4076 [id number] 06/14/09 | + + + +---+ | [...] | Heart Cath, 02/29/2012, LVEF is 65%, [facility], Daljit Singletary, | | [facility] Myocardial Gated Stress Test, 05/25/2009, EF 53 | | % during rest and 52% during stress. [facility], | | [place], [place].Persantine Sestamibi Stress Test, 06/14/2008, LVEF is | | 60%, [facility], Daljit BrashersuwanL 12/25/13, shows noncritical | | coronary [...] Plan: Nonobstructive CAD noted | | on [facility] from 2013, no EKG changes, [...] Other (Triage) | | 2019 | | | | | +--------+ + + + + | 09/26/ | Office | Family Medicine | Kirk French | Weight loss (Primary | | 2019 | Visit | | MD Brea | Dx); Bipolar | | | | | | affective disorder, | | | | | | remission status | | | | | | unspecified ([facility]); | | | | | | [...] Other | | 2019 | | | | [...] 07/13/ | Telephone | Family Medicine | iKrk French | Referral Question | | 2018 | | Shanique Guidry [...] + + | Mother | | | [place] | | | | (Age | | [...] | | | | | | [place] [address] | | | | | | [phone] | | | | | | | | +--------+ + + + + | 11/20/ | Implant | Cardiology | Daljit Singletary, | Remote Device | | 2019 | Monitor | | [facility] | Interrogation | | | | | [place], | (Primary Dx); | | | | | [place] [address] | Presence of | | | | | [phone] | permanent cardiac | | | | [...] Left: | COOK | | 09/27/ | [id number] | | - [id number]: | | Ureter | [employer] | | 2020 | / | | Qty: 1 on 04/13/2019 by | | | - [place] | | | /[id number] | | Matthew Uriarte MD at | | | | | | 56 | | [facility] | | | | | | | | [facility] | | | | | | | [...] +--------+ +---------+--------+ | MEDICARE | MEDICA | [id number] | 01/21/20 | [phone] | | Medica | | | RE | | 01-Pre | 5 | | re | | | PART A | | sent | | | | | | AND B | | | | | | + +--------+ +--------+ +---------+--------+ | MEDICARE | MEDICA | [id number] | 01/21/20 | [phone] | | Medica | | | RE | | 01-Pre | 5 | | re | | | PART A | | sent | | | | | | AND B | | | | | | + +--------+ +--------+ +---------+--------+ | AARP | AARP | [id number] | | [phone] | | Indemn | | | MDCR | | 016-Pr | 0 | | ity | | | SUPPL | | esent | | | | + +--------+ +--------+ +---------+--------+ | AARP | AARP | [id number] | 11/22/19 | [phone] | | Indemn [...] Person | Self | [birth year] | [address] | | Kirk | al/Fam | | 1959 | [phone] | [place], [place] | | | roxanne | | | 8 (Home) | [address] | + +--------+ +--------+ + + | Moe Sanchez | Person | Self | [birth year] | | [address] | | Kirk | al/Fam | | 1959 | [phone] | [address] [place], [place] | | | roxanne | | | 8 (Home) | [address] | + +--------+ +--------+ + + | Moe Sanchez | Third | Self | [birth year] | | [address] | | Kirk | Constitution Party | | 9 | [phone] | [place] | | | Liabil | | | 3 (Home) | [address] | | | ity | | | | | + +--------+ +--------+ + + Advance Directives + + + + + | Type | Date Recorded | Patient | Explanation | | | | Signal Maintainer Helper | | + + + + + | Power of | | | | | Stereotyper Helper | | | | + + + [...]
--- OUTSIDE RECORDS SUMMARY | ~2019-10-04 | XMS | Encounter Summary ---
Demographics + + + | Address | [address] | | | [place] [address] | + + + | Home Phone [...] Providers + +------+ + | Care First Assistant Name | Role | Phone [...] + + | 08/24/ | Office | [facility] | Silvia, | Ascending thoracic | | 2018 | Visit | CARDIOLOGY [address] | [address] | aortic aneurysm | | | | [place], | [place], | ([facility]ER[facility]) (Primary Dx); | | | | [place] [address] | [place] [address] | Syncope, unspecified | | | | [phone] | [phone] | syncope type; | | | | | | Hypertension, | | | | | | unspecified type; | | | | | | Coronary artery | | | | | | disease involving | | | | | | [place] lake coronary | | | | | | artery of [place] lake | | | | | | heart [...] of non-critical coronary artery d isease involving [place] lake coronary artery of [place] lake heart without angina pectoris, essential h ypertension, [...] Preventative health care Coronary artery disease involving [place] coronary artery of [place] lake heart without angina pectoris Cannabis abuse, daily [...] by mouth Daily. 90 tabl et 1 [facility] Natural Products [...] 3RD DOSE, CALL 911 100 tablet 3 [place]-3 Fatty Acids (SALMON OIL-1000 PO) CAPS, one [...] now present Confirmed by HIREN WINKLER, ANGELA ([id number]) on 07/28/2018 6:03:35 AM LAB RESULTS reviewed during visit today primarily from [facility]: LIPID Lab Results Component Value [...] PLTEX 157 04/11/2018 I reviewed records from [facility] for emergency department visit o [...] to go back in 3 days to [place] for an attempt of ablation under general [...] He is in class II of the [place] Heart Association f unctional class. There are [...] subsided. 2. Non-critical Coronary artery disease involving [place] coronary artery of [place] lake heart [facility] angina pectoris: A. Normal exercise sestamibi [...] cannot completely be ruled out . D. [facility] 12/25/13, shows non critical [...] this chart may have been created with [employer] voice recognition software. Occasi onal wrong-word or [...] W | | | | | | [place], | | | | | | [place] [address] | | | | | | [phone] | | | | | | | | +--------+ + + + + | 11/20/ | Implant | Cardiology | Daljit Singletary, | Remote Device | | 2018 | Monitor | | [address] | Interrogation | | | | | [place], | (Primary Dx); | | | | | [place] [address] | Presence of | | | | | [phone] | permanent cardiac | | | | [...] + + | Coronary artery disease involving healy lake coronary artery of healy lake heart without | | angina pectoris | [...]
--- OUTSIDE RECORDS SUMMARY | ~2019-10-04 | XMS | Encounter Summary ---
Demographics + + + | Address | [address] | | | [place] [address] | + + + | Home Phone [...] Providers + +------+ + | Care Boiler Mechanic Name | Role | Phone | [...] 2019 | | GASTROENTEROLOGY | [address], [place] | | | | | [address] [place] | [address] [place], [place] | | | | | [address] [place], [place] | [address] | | | | | [address] | | | | | | [phone] | | | +--------+ + + + [...] W | | | | | | [place], | | | | | | [place] [address] | | | | | | [phone] | | | | | | | | +--------+ + + + + | 11/20/ | Implant | Cardiology | Daljit Singletary, | Remote Device | | 2018 | Monitor | | MD [address] | Interrogation | | | | | [place], | (Primary Dx); | | | | | [place] [address] | Presence of | | | | | [phone] | permanent cardiac | | | | [...]
--- OUTSIDE RECORDS SUMMARY | ~2019-10-04 | XMS | Encounter Summary ---
Demographics + + + | Address | [address] | | | [place] [address] | + + + | Home Phone [...] Providers + +------+ + | Care Insurance Risk Manager Name | Role | Phone | [...] | | CARDIOLOGY [address] | [address] | about diet | | | | [place], | [place], | medication) | | | | [place] [address] | [place] [address] | | | | | [phone] | [phone] | | | | | | | [...] W | | | | | | [place], | | | | | | [place] [address] | | | | | | [phone] | | | | | | | | +--------+ + + + + | 11/20/ | Implant | Cardiology | Daljit Singletary, | Remote Device | | 2018 | Monitor | | MD [address] [place] | Interrogation | | | | | [place], | (Primary Dx); | | | | | [place] [address] | Presence of | | | | | [phone] | permanent cardiac | | | | [...]
--- OUTSIDE RECORDS SUMMARY | ~2019-10-04 | XMS | Encounter Summary ---
Demographics + + + | Address | [address] | | | [place] [address] | + + + | Home Phone [...] Team Providers + +------+ + | Care Clay Mixer Name | Role | Phone | + +------+ + | Michael Amanda DO | PCP | | + +------+ + Encounter Details +--------+ + + + + | Date | Type | Department | Care Team | Description | +--------+ + + + + | 12/25/ | Hospital | [facility] | Daljit Singletary, | | | 2013 | Encounter | MED CTR XRAY [address] | [address] | | | | | [place] | [place], | | | | | [place] [address] | [place] [address] | | | | | [phone] | | | | | | | [...] + + + +---------+ + + | Mitchells-3 Fatty | CAPS, one capsule by | [...] | | | | | | [place] [address] | | | | | | [phone] | | | | | | | | +--------+ + + + + | 11/20/ | Implant | Cardiology | Anshujohnsoncherelle Shaistapawanotto, | Remote Device | | 2019 | Monitor | | [address] [facility] | Interrogation | | | | | [place], | (Primary Dx); | | | | | [place] [address] | Presence of | | | | | [phone] | permanent cardiac | | | | [...] At | + + + | [facility] | [place] | | Department [address] [place] [address] | [facility] | | [ rep ct street[address]] [ rep [facility] | | st zip] Signed | - IMAGING | | | | | Patient Name: MOE GAY | | | Physician: MIGUELINA : 1960 Age: 53 Sex: M Unit | | | #: [id number] Exam Date: 12/25/13 Location: | | | SDS SDS-D Report #: [id number] Page: | | | %(RAD)RES..mtdd.print.filter("pg") of %(RAD) | | | RES..mtdd.print.filter("tpg") | | | | | | Accession Number: [id number] | | | LEFT HEART CATHETERIZATION, 12/25/2013 [...] the patient was taken to the cardiac laboratory technician. She | | | was prepared and draped in the usual fashion. Under sterile | | | technique and local anesthesia, percutaneous access was obtained | | | using #5 Japanese sheath in the right radial artery. Right heart cath | | | was not performed on this patient. Left ventriculography was | | | performed using #5 multipurpose diagnostic catheter. The selective | | | coronary angiography was then performed in several sagittal and | | | oblique projections using #5 multipurpose and #5 Japanese JL 3.5 | | | diagnostic catheters. [...] Transcribed | | | Date/Time: 12/25/2013 11:52 Monument Letterer: | | | <<Signature on File>> | | | Suwong | | | MD CLEOPATRA Singletary FASNanette12/25/13 1343 <Electronically signed by | | | Daljit Singletary MD, [facility], FAC, ADEILNE, FASNC> Daljit | | | MD CLEOPATRA Singletary 12/25/13 1035 Monument Letterer: [employer] | | | Fdbdwqehdkjws67/03/14 1152 | | + + + + + + + + | Performing | Address | City/State/Zipcode | Phone Number | | Organization | | | | + + + + + | [facility] | [address] | [place] | [phone] | | [facility] | | [address] | | | - IMAGING | | | | + + + + + documented in this encounter Visit Diagnoses Not on filedocumented in this encounter
--- OUTSIDE RECORDS SUMMARY | ~2019-10-04 | XMS | Encounter Summary ---
Demographics + + + | Address | [address] | | | [place] [address] | + + + | Home Phone [...] Providers + +------+ + | Care Claims Supervisor Name | Role | Phone [...] + | 06/23/ | Office | [facility] | Silvia, | Ascending thoracic | | 2016 | Visit | CARDIOLOGY [address] | [address] | aortic aneurysm | | | | [place], | [place], | ([facility]) (Primary Dx); | | | | [place] [address] | [place] [address] | Coronary artery | | | | [phone] | [phone] | disease involving | | | | | | quechan coronary | | | | | | artery of quechan | | | | | | heart [...] in office in 6 months. hgabby, Janeen, BULL FIDDLE PLAYER - 06/23/2016 12:45 PM PDT PATIENT NAME: [...] 3rd dose, call 911 100 tablet 3 [place]-3 Fatty Acids (SALMON OIL-1000 PO) CAPS, one [...] RESULTS reviewed during visit today primarily from [facility]: LIPID Lab Results Component Value [...] ASSESSMENT: 1. 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 Normal exercise sestamibi [...] pain. He is in class I-II of [place] Heart Associatio n functional class. There are [...] to go back in 3 days to [place] for an attempt of ablation under general [...] this chart may have been created with [employer] voice recognition software. Occasi onal wrong-word [...] | | | | | | [place], | | | | | | [place] [address] | | | | | | [phone] | | | | | | | | +--------+ + + + + | 11/20/ | Implant | Cardiology | Daljit Singletary, | Remote Device | | 2018 | Monitor | | [address] [facility] | Interrogation | | | | | [place], | (Primary Dx); | | | | | [place] [address] | Presence of | | | | | [phone] | permanent cardiac | | | | [...] the | | | | PDT | quechan coronary | results section. | | | | | artery of quechan | | | | | | heart [...] MD | | | | | | ([id number]) on 06/23/2016 | | | | | [...] quechan heart without | | angina pectoris | [...]
--- OUTSIDE RECORDS SUMMARY | ~2019-10-04 | XMS | Encounter Summary ---
Demographics + + + | Address | [address] | | | [place] [address] | + + + | Home Phone [...] Providers + +------+ + | Care Civil Engineer Land Development Name | Role | Phone | + +------+ + | Kirk French MD | PCP | | + +------+ + Encounter Details +--------+ + + + + | Date | Type | Department | Care Team | Description | +--------+ + + + + | 07/05/ | Hospital | [facility] | Conversion | Acute neck pain | | 2017 | Encounter | [facility] XRAY | Transaction, | | | | | [address] | Provider Unknown | | | | | [address] [place], [place] | [phone] | | | | | [address] | | | | | | [phone] | Apolonia Ruano | | | | | | MD Shelly [address] | | | | | | [address] | | | | | | [place], [place] | | | | | | [address] | | | | | | [phone] | | +--------+ + + + + [...] + + +---------+ + + | [place]-3 Fatty | CAPS, one capsule by [...] | | | | | | [place] [address] | | | | | | [phone] | | | | | | | | +--------+ + + + + | 11/20/ | Implant | Cardiology | Daljit Singletary, | Remote Device | | 2019 | Monitor | | MD [address] [facility] | Interrogation | | | | | [place], | (Primary Dx); | | | | | [place] [address] | Presence of | | | | | [phone] | permanent cardiac | | | | [...]
--- OUTSIDE RECORDS SUMMARY | ~2019-10-04 | XMS | Encounter Summary ---
Demographics + + + | Address | [address] | | | [place] [address] | + + + | Home Phone [...] Providers + +------+ + | Care Signal Manager Name | Role | Phone | [...] [place] | | | | | | [address] | | | | | | [phone] | | | +--------+ + + + [...] W | | | | | | [employer] [place], | | | | | | [place] [address] | | | | | | [phone] | | | | | | | | +--------+ + + + + | 11/20/ | Implant | Cardiology | Daljit Singletary, | Remote Device | | 2018 | Monitor | | [address] [facility] | Interrogation | | | | | [place], | (Primary Dx); | | | | | [place] [address] | Presence of | | | | | [phone] | permanent cardiac | | | | [...]
--- OUTSIDE RECORDS SUMMARY | ~2019-10-04 | XMS | Encounter Summary ---
Demographics + + + | Address | [address] | | | [place] [address] | + + + | Home Phone [...] Providers + +------+ + | Care Engineer Steam Name | Role | Phone | + [...] | | | | CENTER [address] | [place], [place] | (Primary Dx) | | | | [place], [place] | [address] | | | | | [address] | | | | | | [phone] | | | +--------+ + + + [...] + + + +---------+ + + | [place]-3 Fatty | CAPS, one capsule by | [...] W | | | | | | [place], | | | | | | [place] [address] | | | | | | [phone] | | | | | | | | +--------+ + + + + | 11/20/ | Implant | Cardiology | Daljit Singletary, | Remote Device | | 2018 | Monitor | | [address] [facility] | Interrogation | | | | | [place], | (Primary Dx); | | | | | [place] [address] | Presence of | | | | | [phone] | permanent cardiac | | | | [...] | mL/min/1.73m2 | MICHELLE | | | ECUADOREAN | RATE,ESTIMATED | | MEDICAL | | | | mL/min/1.47s1Pwgg than | | CENTER - | | [...] ST. | [address] | [place] | [phone] | | [facility] | | [address] | | | - LABORATORY | | [...] | | | | ANGELA MARADIAGA MD ([id number]) | | | | | | on [...] ST. | [address] | [place], [place] | [phone] | | [facility] | | [address] | | | - LABORATORY | | [...] | [address] | [place], [place] | [phone] | | [facility] | | [address] | | | - LABORATORY | | [...]
--- OUTSIDE RECORDS SUMMARY | ~2019-10-04 | XMS | Encounter Summary ---
Demographics + + + | Address | [address] | | | [place] [address] | + + + | Home Phone [...] Team Providers + +------+ + | Care Cooker Meal Name | Role | Phone | + [...] unspecified | [address] | [address] | | | | | type | [address] | [place], | | | | | Procedures | [place], | [place] | | | | | [place] | [place] [address] | [address] | | | | | Stress Test | Phone: | Phone: | | | | | (Vasodilator | [phone] | [phone] | | | | | ) CHG | Fax: | Fax: | | | | | MYOCARDIAL | [phone] | [phone] | | | | | SPECT | | | | | | | MULTIPLE | | | | | | | STUDIES [place] | | | | | | | CV STRS TST | | | | | | | XERS&/OR RX | | | | | | | CONT ECG W/O | | | | | | | I&R [place] | | | | | | [...] | type | [address] | [address] | | | | | Procedures | [place] | [place], | | | | | FUP | [place] | [place] [address] | | | | | | [address] | Phone: | | | | | | Phone: | [phone] | | | | | | [phone] | Fax: | | | | | | Fax: | [phone] | | | | | | [phone] | | +--------+ + + + + + Encounter Details +--------+---------+ + + + | Date | Type | Department | Care Team | Description | +--------+---------+ + + + | 06/27/ | Office | [facility] | Sydni Singletary, | Pacemaker | | 2017 | Visit | CARDIOLOGY [address] | [address] [facility] | reprogramming/check | | | | [address] [place], | [place], | DO NOT DELETE | | | | [place] [address] | [place] [address] | (Primary Dx); Chest | | | | [phone] | [phone] | pain, unspecified | | | | [...] time, patient has been seen at [place] emergency department on 018 for chest pain [...] by mouth every evening 90 tablet 0 [facility] Natural Products [...] 3RD DOSE, CALL 911 100 tablet 3 [place]-3 Fatty Acids (SALMON OIL-1000 PO) CAPS, one [...] to go back in 3 days to [place] for an attempt of ablation under general [...] PVCs. 2. Non-critical Coronary artery disease involving venetie ira coronary artery of venetie ira heart [facility] angina pectoris: A. Normal exercise sestamibi stress test on 05/25/09. LVEF by [facility] SPECT was 53%. B. [...] cannot completely be ruled out . D. [facility] 12/25/13, shows non [...] He is in a class I of [place] Heart Association functiona l class. There is [...] reviewed and edited this note. Allyson Curtis, Anode Crew Supervisor 06/27/2018 I, Sydni Singletary MD, personally performed the services described in this documentation, as scribed in my presence and it is both accurate and complete. Allyson Curtis, Med Ass t 06/27/2018 14:15 Electronically signed by: Sydni Singletary MD [facility] 06/27/2018 Portions of this chart may have been created with [employer] voice recognition software. Occasi onal wrong-word or sound-alike substitutions may have occurred due to the inherent gragner itations of voice recognition software. Please read [...] | | | | | | [place] [address] | | | | | | [phone] | | | | | | | | +--------+ + + + + | 11/20/ | Implant | Cardiology | Sydni Singletary, | Remote Device | | 2019 | Monitor | | MD [address] [facility] | Interrogation | | | | | [place], | (Primary Dx); | | | | | [place] [address] | Presence of | | | | | [phone] | permanent cardiac | | | | [...] SYDNI | | | | | | ([id number]) on 06/27/2018 | | | | | [...]
--- OUTSIDE RECORDS SUMMARY | ~2019-10-04 | XMS | Encounter Summary ---
Demographics + + + | Address | [address] | | | [place] [address] | + + + | Home Phone [...] Providers + +------+ + | Care Regional Refrigerated Cdl Truck Driver Name | Role | Phone [...] 2016 | | CARDIOLOGY [address] | BARREL FINISHER [address] | | | | | [place], | [place], [place] | | | | | [place] [address] | [address] | | | | | [phone] | | | +--------+--------+ + + + [...] W | | | | | | [place], | | | | | | [place] [address] | | | | | | [phone] | | | | | | | | +--------+ + + + + | 11/20/ | Implant | Cardiology | Daljit Singletary, | Remote Device | | 2018 | Monitor | | [address] | Interrogation | | | | | [place], | (Primary Dx); | | | | | [place] [address] | Presence of | | | | | [phone] | permanent cardiac | | | | [...]
--- OUTSIDE RECORDS SUMMARY | ~2019-10-04 | XMS | Encounter Summary ---
Demographics + + + | Address | [address] | | | [place] [address] | + + + | Home Phone [...] Providers + +------+ + | Care Software Specialist Name | Role | Phone | [...] [address] [place] | | | | | [place], [place] | [address] | | | | | [address] | [place] [address] | | | | | [phone] | [phone] | | | | | | | [...] W | | | | | | [place], | | | | | | [place] [address] | | | | | | [phone] | | | | | | | | +--------+ + + + + | 11/20/ | Implant | Cardiology | Daljit Singletary, | Remote Device | | 2018 | Monitor | | [address] | Interrogation | | | | | [place], | (Primary Dx); | | | | | [place] [address] | Presence of | | | | | [phone] | permanent cardiac | | | | [...]
--- OUTSIDE RECORDS SUMMARY | ~2019-10-04 | XMS | Encounter Summary ---
Demographics + + + | Address | [address] | | | [place] [address] | + + + | Home Phone [...] | | | [place], [place] | [place] [address] | | | | | | [address] | Phone: | | | | | | Phone: | [phone] | | | | | | [phone] | Fax: | | | | | | Fax: | [phone] | | | | | | [phone] | | +--------+ + + + + + Reason for Visit + + + | Reason | Comments | + + + | Medicare Wellness | | + + + Encounter Details +--------+---------+ + + + | Date | Type | Department | Care Team | Description | +--------+---------+ + + + | 07/25/ | Office | [facility] | Michael Amanda, | Preventative health | | 2014 | Visit | MEDICINE [place] | DO [address] | care (Primary Dx); | | | | [address] | [place] | Cannabis abuse, | | | | [place] | [address] | daily use; Urinary | | | | [address] | | frequency; | | | | [phone] | | Incontinence; | | | | [...] for Chest pain. 25 tablet 12 [place]-3 Fatty Acids (SALMON OIL-1000 PO) CAPS, one [...] as Nurse Practitioner (Cardiology) FENG Chou (Physician Service Loss Control Consultant) Current Medicare Suppliers: [facility] - [place], [place] - [address] [place] [address] [facility] - [place], [place] - [address] [place] [address] HEALTH RISK ASSESSMENT: : The patient or [...] following health maintenance items are reviewed in [facility] and correct as of today: [...] no kevin in the usual sections in [place]. documented in this en counter Plan of Treatment +--------+ + + + + | Date | Type | Specialty | Care Team | Description | +--------+ + + + + | 11/09/ | Office | Cardiology | Silvia, | | | 2018 | Visit | | PARISA Vernon [address] | | | | | | [place], | | | | | | [place] [address] | | | | | | [phone] | | | | | | | | +--------+ + + + + | 11/20/ | Implant | Cardiology | Joshcrispincherelle Shaistakenneth, | Remote Device | | 2018 | Monitor | | [address] [facility] | Interrogation | | | | | [place], | (Primary Dx); | | | | | [place] [address] | Presence of | | | | | [phone] | permanent cardiac | | | | [...] - Primary Routine general medical examination at [facility] | | care facility | + + [...]
--- OUTSIDE RECORDS SUMMARY | ~2019-10-04 | XMS | Encounter Summary ---
Demographics + + + | Address | [address] | | | [place] [address] | + + + | Home Phone [...] Team Providers + +------+ + | Care Mapping Editor Name | Role | Phone | [...] + + | 08/14/ | Telephone | [facility] | Michael Amanda, | Appointment | | 2012 | | GROUP IM[facility] [address] | DO [address] | | | | | [facility] | [place] | | | | | [place], [place] | [address] | | | | | [address] | | | | | | [phone] | | | +--------+ + + + [...] | | | | | [place], | | | | | | [place] [address] | | | | | | [phone] | | | | | | | | +--------+ + + + + | 11/20/ | Implant | Cardiology | Daljit Singletary, | Remote Device | | 2018 | Monitor | | [address] [facility] | Interrogation | | | | | [place], | (Primary Dx); | | | | | [place] [address] | Presence of | | | | | [phone] | permanent cardiac | | | | [...]
--- OUTSIDE RECORDS SUMMARY | ~2019-10-04 | XMS | Encounter Summary ---
Demographics + + + | Address | [address] | | | [place] [address] | + + + | Home Phone [...] Team Providers + +------+ + | Care Prepress Stripper Name | Role | Phone | [...] Provider Unknown | | | | | [place], [place] | [phone] | | | | | [address] | | | | | | [phone] | | | +--------+ + + + [...] + + +---------+ + + | [place]-3 Fatty | CAPS, one capsule by | [...] | | | | | | [place] [address] | | | | | | [phone] | | | | | | | | +--------+ + + + + | 11/20/ | Implant | Cardiology | Daljit Singletary, | Remote Device | | 2018 | Monitor | | MD [address]iqu[address]ro | Interrogation | | | | | [place], | (Primary Dx); | | | | | [place] [address] | Presence of | | | | | [phone] | permanent cardiac | | | | [...]
--- OUTSIDE RECORDS SUMMARY | ~2019-10-04 | XMS | Encounter Summary ---
Demographics + + + | Address | [address] | | | [place] [address] | + + + | Home Phone [...] Team Providers + +------+ + | Care Pineapple Plantation Manager Name | Role | Phone | [...] | Aneurysmal | Silvia, | [address] | | | | | dilatation | PARISA Solis | [place], | | | | | (HCC) | [address] | [place] | | | | | Procedures | [address] [place] | [address] | | | | | ECHO | [place], | Phone: | | | | | Complete | [place] | [phone] | | | | | | [address] | Fax: | | | | | | Phone: | [phone] | | | | | | [phone] | | | | | | | Fax: | | | | | | | [phone] | | +--------+--------+ + + + + Encounter Details +--------+ + + + + | Date | Type | Department | Care Team | Description | +--------+ + + + + | 11/16/ | Orders Only | [facility] [place] | [place], | Aneurysmal | | 2017 | | CARDIOLOGY [address] | PARISA Solis [address] | dilatation (HCC) | | | | [address] [place], | [address] [place], | (Primary Dx) | | | | [place] [address] | [place] [address] | | | | | [phone] | [phone] | | | | | | | [...] | | | | | | [place], | | | | | | [place] [address] | | | | | | [phone] | | | | | | | | +--------+ + + + + | 11/20/ | Implant | Cardiology | Sydni Singletary, | Remote Device | | 2018 | Monitor | | [address] | Interrogation | | | | | [place], | (Primary Dx); | | | | | [place] [address] | Presence of | | | | | [phone] | permanent cardiac | | | | [...] Room Number SARAH Patient | | | [id number] Date of Study 11/16/2017 Number | | | Visit Number [id number] | | | Referring Physician GURJIT TROY Number | | | ELIZABETHANGELIA SOLIS Date | | | of 1960 Mycologist ROMAINE | | | MARSISA TIPTON Age 57 year(s) Interpreting | | | GURJIT TROY | | | Passenger Service Agent SYDNI SINGLETARY, | | | | | | Gender Male Nurse | | | Stress Soil Field Technician Procedure Type of | | | [...] | | | EF | | | Eutrrrqil84% Left Ventricle Diastolic Dimension: 5.12 cm | [...] Volume: 46.33 ml | | | EF Nezumnkjp43% | | | | | | Left [...] BARRY Room Number SARAH | | Patient [id number] Date of Study 11/16/2017 Number Visit Number | | [id number] Referring Physician GURJIT TROY | | Number NORMA MCLAUGHLINN Date of | | 1960 Mycologist ROMAINE TIPTON RDCS Age 57 year(s) | | Interpreting GURJIT TROY Passenger Service Agent | | SYDNI SINGLETARY MD | [...] [place] Volume: 46.33 ml | | EF Mbsdglcag18% Left Ventricle Diastolic Dimension: 5.12 cm Systolic [...] LA Volume: 46.33 ml | | EF Ksksorsnm26% | | | | Left Ventricle | [...]
--- OUTSIDE RECORDS SUMMARY | ~2019-10-04 | XMS | Encounter Summary ---
Demographics + + + | Address | [address] | | | [place] [address] | + + + | Home Phone [...] Providers + +------+ + | Care Pie Chef Name | Role | Phone | [...] Provider Unknown | | | | | [place], [place] | [phone] | | | | | [address] | | | | | | [phone] | | | +--------+ + + + [...] + + + +---------+ + + | [facility]-3 Fatty | CAPS, one capsule by | [...] | | | | | | | #[id number], exp 07/2016 | | | | | [...] | | | | | | [place] [address] | | | | | | [phone] | | | | | | | | +--------+ + + + + | 11/20/ | Implant | Cardiology | Daljit Singletary, | Remote Device | | 2018 | Monitor | | MD [address] | Interrogation | | | | | [place], | (Primary Dx); | | | | | [place] [address] | Presence of | | | | | [phone] | permanent cardiac | | | | [...]
--- OUTSIDE RECORDS SUMMARY | ~2019-10-04 | XMS | Encounter Summary ---
Demographics + + + | Address | [address] | | | [place] [address] | + + + | Home Phone [...] Providers + +------+ + | Care Radio Division Officer Name | Role | Phone | [...] | | | | CENTER [address] | [place], [place] | | | | | [place], [place] | [address] | | | | | [address] | | | | | | [phone] | | | +--------+ + + + [...] doc you can try over at [facility] documented in this encounter Medications [...] + + + +---------+ + + | [place]-3 Fatty | CAPS, one capsule by | [...] W | | | | | | [place], | | | | | | [place] [address] | | | | | | [phone] | | | | | | | | +--------+ + + + + | 11/20/ | Implant | Cardiology | Daljit Singletary, | Remote Device | | 2019 | Monitor | | MD Sim [address] | Interrogation | | | | | [place], | (Primary Dx); | | | | | [place] [address] | Presence of | | | | | [phone] | permanent cardiac | | | | [...]
--- OUTSIDE RECORDS SUMMARY | ~2019-10-04 | XMS | Encounter Summary ---
Demographics + + + | Address | [address] | | | [place] [address] | + + + | Home Phone [...] Providers + +------+ + | Care District Or District Office Director Name | Role | Phone | [...] + + | 05/14/ | Office | [facility] | [place], | Coronary artery | | 2013 | Visit | CARDIOLOGY [address] | PARISA Vernon [address] | disease (Primary | | | | [place], | [place], | Dx); Hypertension; | | | | [place] [address] | [place] [address] | Hyperlipidemia; | | | | [phone] | [phone] | Syncope; Other chest | | | [...] needed for Chest pain. 25 tablet 12 [place]-3 Fatty Acids (SALMON OIL-1000 PO) [...] completely be ruled out. D. [facility] 12/25/13, shows noncritical coronary artery disease, [...] exercising. He is in class II of [place] 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 There are no [...] to go back in 3 days to [place] for an attempt of ablation under general [...] palpitations.. He is in class II of [place] 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 There are no [...] bring in his blood pressure logs from [facility]. Lightheadedness and dizziness/ presyncope: A. Episode [...] made to ensure accuracy; however, inadvertent computerized recreational therapy aide errors may be pre sent. Electronically signed [...] W | | | | | | [place], | | | | | | [place] [address] | | | | | | [phone] | | | | | | | | +--------+ + + + + | 11/20/ | Implant | Cardiology | Daljit Singletary, | Remote Device | | 2018 | Monitor | | [address] | Interrogation | | | | | [place], | (Primary Dx); | | | | | [place] [address] | Presence of | | | | | [phone] | permanent cardiac | | | | [...] of unspecified type of | | vessel, [place] or graft | + + | Hypertension Unspecified essential hypertension | + + | Hyperlipidemia Other and unspecified hyperlipidemia | + + | Syncope Syncope and collapse | + + | Other chest pain | + + | Chest pain Chest pain, unspecified | + + documented in this encounter
--- OUTSIDE RECORDS SUMMARY | ~2019-10-04 | XMS | Encounter Summary ---
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, | (Primary Dx); | | | | | [place] [address] | Presence of | | | | | [phone] | permanent cardiac | | | | [...]
--- OUTSIDE RECORDS SUMMARY | ~2019-10-04 | XMS | Encounter Summary ---
Demographics + + + | Address | [address] | | | [place] [address] | + + + | Home Phone [...] Providers + +------+ + | Care Continuous Drier Helper Name | Role | Phone | + +------+ + PCP | Unavailable | + +------+ + Encounter Details +--------+ + + + + | Date | Type | Department | Care Team | Description | +--------+ + + + + | 09/24/ | [facility] | [facility] | Evan Gandara MD | | | 2005 | Encounter | MED CTR XRAY [address] | [address] [facility] | | | | | [place] | [place] | | | | | [place] [address] | [address] | | | | | [phone] | | | +--------+ + + + [...] | | | | | | [place] [address] | | | | | | [phone] | | | | | | | | +--------+ + + + + | 11/20/ | Implant | Cardiology | Daljit Singletary, | Remote Device | | 2018 | Monitor | | MD [address]iqu[address] Oro | Interrogation | | | | | [place], | (Primary Dx); | | | | | [place] [address] | Presence of | | | | | [phone] | permanent cardiac | | | | [...]
--- OUTSIDE RECORDS SUMMARY | ~2019-10-04 | XMS | Encounter Summary ---
Demographics + + + | Address | [address] | | | [place] [address] | + + + | Home Phone [...] Team Providers + +------+ + | Care Blackener Name | Role | Phone | + [...] + + | 10/01/ | Office | [facility] | Mary Bradshaw | Injury of left foot, | | 2013 | Visit | CARE [address] | Guy Larkin MD | initial encounter | | | | [place] | [address] | (Primary Dx) | | | | [address] | [place] | | | | | [phone] | [address] | | | | | | | [...] half hours. 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 I provided patient with Dr. Bradley's card so he may contact us for results. Patient's best phone number: [phone] Renetta Lockwood RN ary Bradshaw MD - [...] | | | | | | [place] [address] | | | | | | [phone] | | | | | | | | +--------+ + + + + | 11/20/ | Implant | Cardiology | Daljit Singletary, | Remote Device | 2018 | Monitor | | [facility] | Interrogation | | | | | [place], | (Primary Dx); | | | | | [place] [address] | Presence of | | | | | [phone] | permanent cardiac | | | | [...] + | MISCELLANEOUS LAB | | | [phone] | + +---------+ + + | MISCELANIOUS LAB | | | [phone] | + +---------+ + + documented in this encounter Visit Diagnoses + + | Diagnosis | + + | Injury of left foot, initial encounter - Primary | + + documented in this encounter
--- OUTSIDE RECORDS SUMMARY | ~2019-10-04 | XMS | Encounter Summary ---
Demographics + + + | Address | [address] | | | [place] [address] | + + + | Home Phone [...] Providers + +------+ + | Care Enterprise Cloud Architect Name | Role | Phone | [...] | | | | | region | [address] | | | | | | Procedures | [address] | | | | | | [place] | [place], [place] | | | | | | Myelography | [address] | | | | | | Lumbar Spine | Phone: | | | | | | | [phone] | | | | | | | Fax: | | | | | | | [phone] | | +--------+--------+ + + + + [...] | | | | | region | [address] | | | | | | Procedures | [address] | | | | | | CT | [place], [place] | | | | | | Myelography | [address] | | | | | | Lumbar Spine | Phone: | | | | | | | [phone] | | | | | | | Fax: | | | | | | | [phone] | | +--------+--------+ + + + + Encounter Details +--------+ + + + + | Date | Type | Department | Care Team | Description | +--------+ + + + + | 04/07/ | Hospital | [facility] | Pia Akhtar | Spinal stenosis, | | 2016 | Encounter | MED CTR [address] | MD [address] | lumbar region | | | | [place], | [address] | | | | | [place] [address] | [place] [address] | | | | | [phone] | [phone] | | | | | | | [...] + + + +---------+ + + | [place]-3 Fatty | CAPS, one capsule by | [...] | | | | | | [place] [address] | | | | | | [phone] | | | | | | | | +--------+ + + + + | 11/20/ | Implant | Cardiology | Daljit Singletary, | Remote Device | | 2018 | Monitor | | [address] [facility] | Interrogation | | | | | [place], | (Primary Dx); | | | | | [place] [address] | Presence of | | | | | [phone] | permanent cardiac | | | | [...]
--- OUTSIDE RECORDS SUMMARY | ~2019-10-04 | XMS | Encounter Summary ---
Demographics + + + | Address | [address] | | | [place] [address] | + + + | Home Phone [...] Providers + +------+ + | Care Coil Maker Name | Role | Phone | [...] + | 06/02/ | Telephone | [facility] | Daljit Singletary, | Other (symptoms) | | 2019 | | CARDIOLOGY [address] | MD [address] [place] | | | | | [place], | [place], | | | | | [place] [address] | [place] [address] | | | | | [phone] | [phone] | | | | | | | [...] W | | | | | | [place], | | | | | | [place] [address] | | | | | | [phone] | | | | | | | | +--------+ + + + + | 11/20/ | Implant | Cardiology | Daljit Singletary, | Remote Device | | 2019 | Monitor | | MD Chiquis Oro | Interrogation | | | | | [place], | (Primary Dx); | | | | | [place] [address] | Presence of | | | | | [phone] | permanent cardiac | | | | [...]
--- OUTSIDE RECORDS SUMMARY | ~2019-10-04 | XMS | Encounter Summary ---
Demographics + + + | Address | [address] | | | [place] [address] | + + + | Home Phone [...] Team Providers + +------+ + | Care Laundrette Owner Name | Role | Phone | [...] | | | | CENTER [address] [place] | [place], [place] | (Primary Dx) | | | | [place], [place] | [address] | | | | | [address] | | | | | | [phone] | | | +--------+ + + + [...] + + + +---------+ + + | [place]-3 Fatty | CAPS, one capsule by [...] W | | | | | | [place], | | | | | | [place] [address] | | | | | | [phone] | | | | | | | | +--------+ + + + + | 11/20/ | Implant | Cardiology | Daljit Singletary, | Remote Device | | 2018 | Monitor | | [address] [facility] | Interrogation | | | | | [place], | (Primary Dx); | | | | | [place] [address] | Presence of | | | | | [phone] | permanent cardiac | | | | [...] | mL/min/1.73m2 | MICHELLE | | | [place] | RATE,ESTIMATED | | MEDICAL | | | | mL/min/1.72q2Tlmp than | | CENTER - | | [...] ST. | [address] | [place] | [phone] | | [facility] | | [address] | | | - LABORATORY | | [...] | | | | ANGELA MARADIAGA MD ([id number]) | | | | | | on [...] | | | | | | [employer] | | | | | [...] ST. | [address] | [place], [place] | [phone] | | [facility] | | [address] | | | - LABORATORY | | [...] | [address] | [place], [place] | [phone] | | [facility] | | [address] | | | - LABORATORY | | [...]
--- OUTSIDE RECORDS SUMMARY | ~2019-10-04 | XMS | Encounter Summary ---
Demographics + + + | Address | [address] | | | [place] [address] | + + + | Home Phone [...] Providers + +------+ + | Care Windows Security Analyst Name | Role | Phone | + +------+ + | Michael Amanda DO | PCP | | + +------+ + Encounter Details +--------+ + + + + | Date | Type | Department | Care Team | Description | +--------+ + + + + | 01/31/ | Hospital | [facility] | Adrian Gutierrez MD | | | 2012 | Encounter | HEART MED CTR | [address] | | | | | EMERGENCY CENTER | [place], [place] | | | | | [address] | [address] | | | | | [place] | [phone] | | | | | [address] | | | | | | [phone] | | | +--------+ + + + [...] + + + +---------+ + + | [place]-3 Fatty | CAPS, one capsule by | [...] | | | | | | [place] [address] | | | | | | [phone] | | | | | | | | +--------+ + + + + | 11/20/ | Implant | Cardiology | Daljit Singletary, | Remote Device | | 2019 | Monitor | | [address] [facility] | Interrogation | | | | | [place], | (Primary Dx); | | | | | [place] [address] | Presence of | | | | | [phone] | permanent cardiac | | | | [...] + + + | Exam Performed Location: [facility] | MISCELANIOUS | | CHEST CLINICAL [...] | an acute cardiopulmonary process. S: SQ ([id number]) Signed by: | | | JAYNE SPEAR MD | | + + + + + | Procedure Note | + + | Kevin, Rad Conversion - 09/13/2013 10:25 PM PDT Exam Performed [facility] INFORMATION:Shortness of | | breath.COMPARISON:None.FINDINGS:There is a left subclavian dual lead cardiac pacer. The | | heart sizeand mediastinal contours are normal. The pulmonary vasculature isnormal. No | | focal airspace opacities, pleural effusions, orpneumothorax. Cervical fusion hardware | | is noted. No acute osseousfindings.IMPRESSION:No evidence of an acute cardiopulmonary | | process.S: SQ ([id number]) Signed by: JAYNE SPEAR MD | |COMPARISON: [...] | | | | | |S: SQ ([id number]) Signed by: JAYNE SPEAR MD | + + + +---------+ + + | Performing | Address | City/State/Zipcode | Phone Number | | Organization | | | | + +---------+ + + | MISCELLANEOUS LAB | | | [phone] | + +---------+ + + | MISCELANIOUS LAB | | | [phone] | + +---------+ + + Troponin I [...] + + | [facility] | [address] | [place] [address] | | | [facility] | [...] + + | [facility] | [address] | [place] [address] | | | [facility] | [...] + + | [facility] | [address] | [place] [address] | | | HEART [facility] | | | | | LABORATORY | | | | + + + + + | [facility] | | | | | HEART [facility] | | | | [...] + + | [facility] | [address] | [place] [address] | | | [facility] | | | | | LABORATORY | | | | + + + + + | [facility] | | | | | [facility] | | | | | [...] + + | Glucose | 154 (H)Comment: [place] | 65 - 99 mg/dL | [facility] | | | | Diabetes [...] + + | [facility] | [address] | [place] [address] | | | [facility] | | | | | LABORATORY | | | | + + + + + | [facility]ON[facility] | | | | | [facility] | | | | | LABORATORY | | | | + + + + + documented in this encounter Visit Diagnoses Not on filedocumented in this encounter"
--- OUTSIDE RECORDS SUMMARY | ~2019-10-04 | XMS | Encounter Summary ---
Demographics + + + | Address | [address] | | | [place] [address] | + + + | Home Phone [...] | MED CTR EXTERNAL | MD [address] | | | | | IMAGING | Jay [place] | | | | | [phone] | [place] [address] | | +--------+ + + + + [...] W | | | | | | [place], | | | | | | [place] [address] | | | | | | [phone] | | | | | | | | +--------+ + + + + | 11/20/ | Implant | Cardiology | Daljit Singletary, | Remote Device | | 2018 | Monitor | | [facility] | Interrogation | | | | | [place], | (Primary Dx); | | | | | [place] [address] | Presence of | | | | | [phone] | permanent cardiac | | | | [...]
--- OUTSIDE RECORDS SUMMARY | ~2019-10-04 | XMS | Encounter Summary ---
Demographics + + + | Address | [address] | | | [place] [address] | + + + | Home Phone [...] Providers + +------+ + | Care Air Brake Operator Name | Role | Phone | [...] CARDIOLOGY [address] | MD [address] [place] | Dx); SINUS | | | | [place], | [place], | [place] | | | | [place] [address] | [place] [address] | | | | | [phone] | [phone] | | | | | | | [...] | | | | | | [place] [address] | | | | | | [phone] | | | | | | | | +--------+ + + + + | 11/20/ | Implant | Cardiology | Daljit Singletary, | Remote Device | | 2019 | Monitor | | [facility] | Interrogation | | | | | [place], | (Primary Dx); | | | | | [place] [address] | Presence of | | | | | [phone] | permanent cardiac | | | | [...]
--- OUTSIDE RECORDS SUMMARY | ~2019-10-04 | XMS | Encounter Summary ---
Demographics + + + | Address | [address] | | | [place] [address] | + + + | Home Phone [...] Team Providers + +------+ + | Care Liner Assembler Name | Role | Phone | [...] | MED CTR EXTERNAL | MD Sawyer [address] | | | | | IMAGING | Jay THORPE | | | | | [phone] | [place] [address] | | +--------+ + + + + [...] | | | | | | [place], | | | | | | [place] [address] | | | | | | [phone] | | | | | | | | +--------+ + + + + | 11/20/ | Implant | Cardiology | Daljit Singletary, | Remote Device | | 2018 | Monitor | | [facility] | Interrogation | | | | | [place], | (Primary Dx); | | | | | [place] [address] | Presence of | | | | | [phone] | permanent cardiac | | | | [...]
--- OUTSIDE RECORDS SUMMARY | ~2019-10-04 | XMS | Encounter Summary ---
Demographics + + + | Address | [address] [place] [address] | | | [place] [address] | + + + | Home Phone [...] [place] | | | | | [address] | | + + + + + [...] Yao | | | | | at [facility] | [facility] | | | | | [address] | [place] [address] | | | | | [facility] | | | | | | Mailcode: [id number] Yao | | | | | | Leobardo Pedraza | | | | | | [facility] | | | | | | [place] [address] | | | | | | [phone] | | | +--------+ + + + [...] view image for the detailed interpretation from [facility] results. | CARDIOLOGY | + + + + + + + + | Performing | Address | City/State/Zipcode | Phone Number | | Organization | | | | + + + + + | [facility] | [address] | [place], [place] | | | CARDIOLOGY | [address] | [address] | | + + + + + documented in this encounter Visit Diagnoses Not on filedocumented in this encounter"
--- OUTSIDE RECORDS SUMMARY | ~2019-10-04 | XMS | Encounter Summary ---
Demographics + + + | Address | [address] | | | [place] [address] | + + + | Home Phone [...] Team Providers + +------+ + | Care Dentist/Owner Name | Role | Phone | + [...] + + | 09/13/ | Office | [facility] | Bahman Gant MD | Other dysphagia | | 2013 | Visit | OTOLARYNGOLOGY [address] | [address] [place] | (Primary Dx) | | | | [address] | [address] [place], | | | | | [place], [place] | [place] [address] | | | | | [address] | [phone] | | | | | [phone] | | | +--------+---------+ + + + [...] MD - 09/13/2013 5:46 PM PDTSee dictation #[id number] signed by Joseph Gant MD at 09/13/2013 5:52 PM Bahman Lamb MD - 09/13/2013 12:00 AM PDT ENT AND AUDIOLOGY [address] [facility] [address] [place] [address] FAX: [phone] OFFICE VISIT The patient gives a history [...] Gant MD GM / MS JOB #: [id number] signed by Bahman Gant MD at 09/14/2013 [...] | | | | | | [place] [address] | | | | | | [phone] | | | | | | | | +--------+ + + + + | 11/20/ | Implant | Cardiology | Daljit Singletary, | Remote Device | | 2019 | Monitor | | [facility] | Interrogation | | | | | [place], | (Primary Dx); | | | | | [place] [address] | Presence of | | | | | [phone] | permanent cardiac | | | | [...]
--- OUTSIDE RECORDS SUMMARY | ~2019-10-04 | XMS | Encounter Summary ---
Demographics + + + | Address | [address] | | | [place] [address] | + + + | Home Phone [...] Providers + +------+ + | Care Lead Java Programmer Name | Role | Phone | + +------+ + PCP | Unavailable | + +------+ + Encounter Details +--------+ + + + + | Date | Type | Department | Care Team | Description | +--------+ + + + + | 02/01/ | [facility] | [facility] | Eavn Gandara MD | | | 2008 - | Encounter | MED CTR MED ONC | [address] [facility] | | | | | [address] [place] | [place] | | | 02/06/ | | [place] [address] | [address] | | | 2008 | | [phone] | | | +--------+ + + + [...] [place] | | | | | | [place] [address] | | | | | | [phone] | | | | | | | | +--------+ + + + + | 11/20/ | Implant | Cardiology | Daljit Singletary, | Remote Device | | 2019 | Monitor | | MD Chiquis Oro | Interrogation | | | | | [address] [place], | (Primary Dx); | | | | | [place] [address] | Presence of | | | | | [phone] | permanent cardiac | | | | [...]
--- OUTSIDE RECORDS SUMMARY | ~2019-10-04 | XMS | Encounter Summary ---
Demographics + + + | Address | [address] | | | [place] [address] | + + + | Home Phone [...] Providers + +------+ + | Care Job Placement Counselor Name | Role | Phone | [...] Show | | 2012 | | [facility] [place] | DO [address] | | | | | [address] | [place] | | | | | [place] | [address] | | | | | [address] | | | | | | [phone] | | | +--------+ + + + [...] | | | | | | [place] [address] | | | | | | [phone] | | | | | | | | +--------+ + + + + | 11/20/ | Implant | Cardiology | Daljit Singletary, | Remote Device | | 2018 | Monitor | | MD Chiquis Oro | Interrogation | | | | | [place], | (Primary Dx); | | | | | [place] [address] | Presence of | | | | | [phone] | permanent cardiac | | | | [...]
--- OUTSIDE RECORDS SUMMARY | ~2019-10-04 | XMS | Encounter Summary ---
Demographics + + + | Address | [address] | | | [place] [address] | + + + | Home Phone [...] Providers + +------+ + | Care Grain Manager Name | Role | Phone | [...] + + | 12/09/ | Telephone | [facility] | Emmanuel Daniel MD | Appointment (EGD, | | 2017 | | GASTROENTEROLOGY | [address], [place] | colon Rescheduled to | | | | [address] [place] | [address] [place] | December 24 due to | | | | [address] [place] | [address] | illness) | | | | [address] | | | | | | [phone] | | | +--------+ + + + [...] | | | | | | [place] [address] | | | | | | [phone] | | | | | | | | +--------+ + + + + | 11/20/ | Implant | Cardiology | Daljit Singletary, | Remote Device | | 2019 | Monitor | | MD Sim [facility] | Interrogation | | | | | [address] [place], | (Primary Dx); | | | | | [place] [address] | Presence of | | | | | [phone] | permanent cardiac | | | | [...]
--- OUTSIDE RECORDS SUMMARY | ~2019-10-04 | XMS | Encounter Summary ---
Demographics + + + | Address | [address] | | | [place] [address] | + + + | Home Phone [...] Team Providers + +------+ + | Care Ripening Room Attendant Name | Role | Phone | + +------+ + PCP | Unavailable | + +------+ + Encounter Details +--------+ + + + + | Date | Type | Department | Care Team | Description | +--------+ + + + + | 11/14/ | [facility] | [facility] | William Hirsch | | | 1999 | Encounter | MED CTR EMERGENCY | MD Cristobal [address] | | | | | CENTER [address] | [address] | | | | | [place] | [place] [address] | | | | | [address] | [phone] | | | | | [phone] | | | +--------+ + + + [...] | | | | | | [place] [address] | | | | | | [phone] | | | | | | | | +--------+ + + + + | 11/20/ | Implant | Cardiology | Daljit Singletary, | Remote Device | | 2018 | Monitor | | MD Chiquis Oro | Interrogation | | | | | [facility], | (Primary Dx); | | | | | [place] [address] | Presence of | | | | | [phone] | permanent cardiac | | | | [...]
--- OUTSIDE RECORDS SUMMARY | ~2019-10-04 | XMS | Encounter Summary ---
Demographics + + + | Address | [address] | | | [place] [address] | + + + | Home Phone [...] + + | 04/07/ | Telephone | [facility] | Matthew Uriarte | Medication Orders | | 2019 | | [address] | MD Tawanna [address] | (Medication ) | | | | [place], [place] | [place], [place] | | | | | [address] | [address] | | | | | [phone] | | | +--------+ + + + [...] | | | | | | [place] [address] | | | | | | [phone] | | | | | | | | +--------+ + + + + | 11/20/ | Implant | Cardiology | Daljit Singletary, | Remote Device | | 2018 | Monitor | | MD Chiquis Oro | Interrogation | | | | | [place], | (Primary Dx); | | | | | [place] [address] | Presence of | | | | | [phone] | permanent cardiac | | | | [...]
--- OUTSIDE RECORDS SUMMARY | ~2019-10-04 | XMS | Encounter Summary ---
Demographics + + + | Address | [address] | | | [place] [address] | + + + | Home Phone [...] Team Providers + +------+ + | Care Irrigationist Name | Role | Phone | + +------+ + PCP | Unavailable | + +------+ + Encounter Details +--------+ + + + + | Date | Type | Department | Care Team | Description | +--------+ + + + + | 01/21/ | Emergency | [facility] | Kirill Dominique | Unspecified Chest | | 2009 | | MEDICAL CENTER | MD Jonas [address] | Pain | | | | EMERGENCY CENTER | [address] [place] | | | | | [address] | [address] | | | | | [place] | [phone] | | | | | [address] | | | | | | [phone] | | | +--------+ + + + [...] | | | | | | [place] [address] | | | | | | [phone] | | | | | | | | +--------+ + + + + | 11/20/ | Implant | Cardiology | Daljit Singletary, | Remote Device | | 2019 | Monitor | | [address] | Interrogation | | | | | [place], | (Primary Dx); | | | | | [place] [address] | Presence of | | | | | [phone] | permanent cardiac | | | | [...]
--- OUTSIDE RECORDS SUMMARY | ~2019-10-04 | XMS | Encounter Summary ---
Demographics + + + | Address | [address] | | | [place] [address] | + + + | Home Phone [...] Providers + +------+ + | Care Rn Psychiatric Name | Role | Phone | + [...] | | | | CENTER [address] | [address] | (Primary Dx) | | | | [place], [place] | [place], [place] | | | | | [address] | [address] | | | | | [phone] | | | +--------+ + + + [...] + + + +---------+ + + | [place]-3 Fatty | CAPS, one capsule by [...] W | | | | | | [place], | | | | | | [place] [address] | | | | | | [phone] | | | | | | | | +--------+ + + + + | 11/20/ | Implant | Cardiology | Sydni Singletary, | Remote Device | | 2019 | Monitor | | [address] [place] [address] [place] | Interrogation | | | | | [facility], | (Primary Dx); | | | | | [place] [address] | Presence of | | | | | [phone] | permanent cardiac | | | | [...] W?MRN: | | | | | | [id number] | | | [id number] | | | his | | | [...] | | | ent/60 | | | [id number] | | | -5586- | | | [...] | | | St. | | | Gates | | | y | | | [...] | | | ext. | | | [address] | | | or go | | [...] | | M.D. | | | Supervisor Accounts Receivable | | | al | | | [...] ST. | [address] | [place] | [phone] | | [facility] | | [address] | | | - LABORATORY | | [...] [address] | [place] | [phone] | | [facility] | | [address] | | | - LABORATORY | | [...] [address] | [place] | [phone] | | [facility] | | [address] | | | - LABORATORY | | [...] mL/min/1.73m2 | . [place] | | | [place] | RATE,ESTIMATED | | MEDICAL | | | | mL/min/1.29g3Lare than | | CENTER - | | [...] ST. | [address] | [place] | [phone] | | [facility] | | [address] | | | - LABORATORY | | [...] | | | | | M/uL | [place] | | | | | | [...] ST. | [address] | [place], [place] | [phone] | | [facility] | | [address] | | | - LABORATORY | | [...] + | [facility] | [address] | [place] | [phone] | | [facility] | | [address] | | | - LABORATORY | | [...] SYDNI | | | | | | ([id number]) on 06/22/2018 | | | | | [...]
--- OUTSIDE RECORDS SUMMARY | ~2019-10-04 | XMS | Encounter Summary ---
Demographics + + + | Address | [address] | | | [place] [address] | + + + | Home Phone [...] Providers + +------+ + | Care Credit Analysis Manager Name | Role | Phone | [...] + + | 08/31/ | Refill | [facility] | Kirk French | Medication Refill | | 2018 | | [facility] | MD Brea [address] | | | | | PRIMARY CARE [address] | [address] | | | | | [address] | [place] [address] | | | | | [place], [place] | [phone] | | | | | [address] | | | | | | [phone] | | | +--------+--------+ + + + [...] | | | | | | [place] [address] | | | | | | [phone] | | | | | | | | +--------+ + + + + | 11/20/ | Implant | Cardiology | Daljit Singletary, | Remote Device | | 2018 | Monitor | | MD Chiquis Oro | Interrogation | | | | | [address] [place], | (Primary Dx); | | | | | [place] [address] | Presence of | | | | | [phone] | permanent cardiac | | | | [...]
--- OUTSIDE RECORDS SUMMARY | ~2019-10-04 | XMS | Encounter Summary ---
Demographics + + + | Address | [address] | | | [place] [address] | + + + | Home Phone [...] +------+ + | Care Boat Canvas Maker And Installer Name | Role | [...] 2019 | | GASTROENTEROLOGY | [address] [place], [place] | | | | | [address] [place] | [address] [place], [place] | | | | | [address] [place], [place] | [address] | | | | | [address] | | | | | | [phone] | | | +--------+ + + + [...] [place], | | | | | | [place] [address] | | | | | | [phone] | | | | | | | | +--------+ + + + + | 11/20/ | Implant | Cardiology | Daljit Singletary, | Remote Device | | 2018 | Monitor | | MD [address] | Interrogation | | | | | [place], | (Primary Dx); | | | | | [place] [address] | Presence of | | | | | [phone] | permanent cardiac | | | | [...]
--- OUTSIDE RECORDS SUMMARY | ~2019-10-04 | XMS | Encounter Summary ---
Demographics + + + | Address | [address] | | | [place] [address] | + + + | Home Phone [...] Team Providers + +------+ + | Care Transition Lead Name | Role | Phone | [...] Eva ROUSE | | | | | [place], [place] | [address] | | | | | [address] | [place] [address] | | | | | [phone] | [phone] | | | | | | | [...] W | | | | | | [place], | | | | | | [place] [address] | | | | | | [phone] | | | | | | | | +--------+ + + + + | 11/20/ | Implant | Cardiology | Daljit Singletary, | Remote Device | | 2018 | Monitor | | MD Sim [facility] | Interrogation | | | | | [place], | (Primary Dx); | | | | | [place] [address] | Presence of | | | | | [phone] | permanent cardiac | | | | [...]
--- OUTSIDE RECORDS SUMMARY | ~2019-10-04 | XMS | Encounter Summary ---
Demographics + + + | Address | [address] | | | [place] [address] | + + + | Home Phone [...] Team Providers + +------+ + | Care Pvc Loader Name | Role | Phone | [...] | CARDIOLOGY [address] | MD [address] [place] | | | | | [place], | [place], | | | | | [place] [address] | [place] [address] | | | | | [phone] | [phone] | | | | | | | [...] | | | | | | [place] [address] | | | | | | [phone] | | | | | | | | +--------+ + + + + | 11/20/ | Implant | Cardiology | Daljit Singletary, | Remote Device | | 2019 | Monitor | | MD Chiquis [place]y [place] | Interrogation | | | | | [address] [place], | (Primary Dx); | | | | | [place] [address] | Presence of | | | | | [phone] | permanent cardiac | | | | [...]
--- OUTSIDE RECORDS SUMMARY | ~2019-10-04 | XMS | Encounter Summary ---
Demographics + + + | Address | [address] | | | [place] [address] | + + + | Home Phone [...] Provider Unknown | | | | | [place], [place] | [phone] | | | | | [address] | | | | | | [phone] | | | +--------+ + + + [...] + + + +---------+ + + | [place]-3 Fatty | CAPS, one capsule by | [...] | | | | | | | #[id number], exp 07/2016 | | | | | [...] | | | | | | [place] [address] | | | | | | [phone] | | | | | | | | +--------+ + + + + | 11/20/ | Implant | Cardiology | Daljit Singletary, | Remote Device | | 2018 | Monitor | | MD Chiquis Oro | Interrogation | | | | | [address] [place], | (Primary Dx); | | | | | [place] [address] | Presence of | | | | | [phone] | permanent cardiac | | | | [...]
--- OUTSIDE RECORDS SUMMARY | ~2019-10-04 | XMS | Encounter Summary ---
Demographics + + + | Address | [address] | | | [place] [address] | + + + | Home Phone [...] | RN | | | | | [place], | | | | | | [place] [address] | | | | | | [phone] | | | +--------+ + + + [...] | | | | | | [place] [address] | | | | | | [phone] | | | | | | | | +--------+ + + + + | 11/20/ | Implant | Cardiology | Daljit Singletary, | Remote Device | | 2019 | Monitor | | [address] | Interrogation | | | | | [place], | (Primary Dx); | | | | | [place] [address] | Presence of | | | | | [phone] | permanent cardiac | | | | [...]
--- OUTSIDE RECORDS SUMMARY | ~2019-10-04 | XMS | Encounter Summary ---
Demographics + + + | Address | [address] | | | [place] [address] | + + + | Home Phone [...] Providers + +------+ + | Care Balance Wheel Facer Name | Role | Phone | [...] Encounter | MEDICAL CENTER | MD Kelsey [address] | Pain | | | | CLINICAL DECISION | [place] | | | 05/25/ | | [address] | [address] | | | 2008 | | [place], [place] | [phone] | | | | | [address] | | | | | | [phone] | | | +--------+ + + + [...] W | | | | | | [place], | | | | | | [place] [address] | | | | | | [phone] | | | | | | | | +--------+ + + + + | 11/20/ | Implant | Cardiology | Daljit Singletary, | Remote Device | | 2018 | Monitor | | [address] | Interrogation | | | | | [place], | (Primary Dx); | | | | | [place] [address] | Presence of | | | | | [phone] | permanent cardiac | | | | [...] Performed At | + + + | [id number] | | | Page 1 RADIOLOGY | | | CDU 25290/ | | | [facility] | | | CENTER NAME: [place] [address] | | | | | | | | | DATE OF : 1960 ORDER NUMBER: | | | [id number] EXAM DATE/TIME: 05/25/2009 08:00 A ORDERING PHYSICIAN: | | | CHI FANG ORDER DETAIL: [id number] / / [facility] EXAM | | | DESCRIPTION: NM [...] | | administration of 14.9 mCi of sibboavxic-06y-vvgxoca Myoview. Stress | | | images postinjection [...] | | | images. Prone images demonstrate yarsanism of the inferior wall | | | [...] | | A P | | | [id number]/[id number]/ cc: MD FEMI FOSS, | | | MD CHI FANG, MD AMY BANEGAS DO | | + + + + + | Procedure Note | + + | Kalpesh Brown Conversion - 07/17/2019 2:13 AM PDT | | [id number] Page 1 | | RADIOLOGY CDU 93030/ | | OPO | | [facility] NAME: PINA GAY | | [place] [address] | | | | DATE OF : 1960 | | | | ORDER NUMBER: [id number] | | EXAM DATE/TIME: 05/25/2009 08:00 A [...] administration of 14.9 mCi | | of asrmmronee-15q-ybfpbwd Myoview. Stress images postinjection of 47.7 | [...] | | | | Prone images demonstrate yarsanism of the inferior wall nicely. | | [...] | A | | P | | TSG/dc/[id number]/ | | cc: ANGELA MARADIAGA MD | | FEMI MARIE MD | | CHI FANG MD | | AMY BANEGAS DO | + + ECHO Complete (05/25/2009 7:50 AM PDT) + + | Specimen | + + | | + + + + + | Narrative | Performed At | + + + | [id number] | | | Page 1 ECHO [facility] NAME: | | | [place] [address] MEDICAL RECORD #: | | | [id number] | | | DATE OF : 1960 ORDER | | | NUMBER: [id number] EXAM DATE/TIME: 05/25/2009 07:34 PERFORMING | | [...] Excursion: | | | 1.89 cm E-F Ramsey: 0.08 m/s HR: 43.51 BPM AV maxP.11 [...] | | | 0.33 m/s TV Dec Ramsey: 1.73 m/s2 TV Dec Time: 344.24 ms TV | | | E Bravo: 0.59 m/s TV E/A Ratio: 1.80 TV maxP.40 mmHg TV | | | meanP.44 mmHg TV Vmax: 0.59 m/s TV Vmean: 0.30 m/s TV | | | VTI: 22.88 cm Business Transformation Analyst: ANTHONY Authenticated by: Edwardo Tee | | | Carlos WINKLER Report Date/Time: 05-25-2009 10:19:52 | | + + + + + | Procedure Note | + + | Kalpesh Brown Conversion - 07/17/2019 2:13 AM [facility] [id number] | | Page [address] [place] [address] NAME: [place] | | [address] : ACCOUNT #: | | [id number]: DATE OF : 1960ORDER NUMBER: | | [id number] DATE/TIME: 05/25/2009 07:34PERFORMING PHYSICIAN: Edwardo Gonzalez | [...] mlLAESV Index (A-L): 26.03 ml/m2LAAs A2C: 14.93 vd6PRIAM A-L | | A2C: 44.50 mlLALs A2C: 4.25 cmLAAs A4C: 18.42 bd0VQIAN A-L A4C: 55.79 mlLALs | | A4C: 5.16 cmAo Diam: 3.91 cmAV Cusp: 2.23 cmLA Diam: 3.79 cmLA/Ao: 0.96%FS: | | 43.37 %EDV(Teich): 146.19 mlEF(Teich): 73.99 %ESV(Teich): 38.01 mlIVSd: 1.57 | | cmIVSs: 1.79 cmLVIDd: 5.48 cmLVIDs: 3.10 cmLVPWd: 1.32 cmLVPWs: 1.79 | | cmSV(Teich): 108.18 mlD-E Excursion: 1.89 cmE-F Ramsey: 0.08 m/sHR: 43.51 BPMAV | | maxP.11 mmHgAV meanP.33 mmHgAV Vmax: 1.74 m/Zabrina Vmean: 1.06 m/Zabrina VTI: | | 35.51 cmAVA Vmax: 2.77 cm2AVA (VTI): 2.54 xa1TDUI Dopp: 3.00 l/wbxb7PAVF Dopp: | | 6.33 l/minHR: 70.25 BPMLVOT maxP.78 mmHgLVOT meanP.02 mmHgLVSI Dopp: | | 42.76 ml/m2LVSV Dopp: 90.23 mlLVOT Vmax: 1.30 m/sLVOT Vmean: 0.80 m/sLVOT VTI: | | 24.35 cmMV A Bravo: 0.70 m/sMV DecT: 242.46 msMV E Bravo: 0.91 m/sMV E/A Ratio: | | 1.31MV maxP.40 mmHgMV meanP.82 mmHgMV Vmax: 0.92 m/sMV Vmean: 0.37 m/sMV | | VTI: 26.47 cmMVA (VTI): 3.40 qv5Jvyigp e': 0.08 m/sSeptal E/e': 11.24HR: | | 60.55 BPMPV maxP.04 mmHgPV meanP.39 mmHgPV Vmax: 0.87 m/sPV Vmean: 0.55 | | m/sPV VTI: 19.09 cmRAP: 5 mmHgRVSP: 21.72 mmHgTR maxP.72 mmHgTR Vmax: | | 2.04 m/sTV A Bravo: 0.33 m/sTV Dec Ramsey: 1.73 m/s2TV Dec Time: 344.24 msTV E Bravo: | | 0.59 m/sTV E/A Ratio: 1.80TV maxP.40 mmHgTV meanP.44 mmHgTV Vmax: 0.59 | | m/sTV Vmean: 0.30 m/sTV VTI: 22.88 cm Business Transformation Analyst: KVWAuthenticated by: Edwardo Tee | | Carlos [...] | |D-E Excursion: 1.89 cm | |E-F Ramsey: 0.08 m/s | |HR: 43.51 BPM | [...] A Bravo: 0.33 m/s | |TV Dec Ramsey: 1.73 m/s2 | |TV Dec Time: 344.24 ms | |TV E Bravo: 0.59 m/s | |TV E/A Ratio: 1.80 | |TV maxP.40 mmHg | |TV meanP.44 mmHg | |TV Vmax: 0.59 m/s | |TV Vmean: 0.30 m/s | |TV VTI: 22.88 cm | | | |Business Transformation Analyst: KVW | |Authenticated by: Edwardo Gonzalez MD | |Report Date/Time: 05-25-2009 10:19:52 | + + CT Head wo Contrast (05/24/2009 12:58 PM PDT) + + | Specimen | + + | | + + + + + | Narrative | Performed At | + + + | [id number] | | | Page 1 RADIOLOGY | | | CDU 21074/ | | | [facility] | | | CENTER NAME: [place] [address] | | | | | | | | | DATE OF : 1960 ORDER NUMBER: | | | [id number] EXAM DATE/TIME: 05/24/2009 12:47 P ORDERING PHYSICIAN: [...] 08:45 P P P | | | [facility]/[id number]/ cc: MD ANGELA AVENDAÑO MD | | | MD AMY HAM DO | | + + + + + | Procedure Note | + + | Kalpesh Brown Conversion - 07/17/2019 2:13 AM PDT | | [id number] Page 1 | | RADIOLOGY CDU 35244/ | | OPO | | [facility] NAME: [address] | | [place] [address] | | | | DATE OF : 1960 | | | | ORDER NUMBER: [id number] | | EXAM DATE/TIME: 05/24/2009 12:47 P [...] | P | | P | | [facility]/[id number]/ | | cc: VINAY HILL MD | | ANGELA MARADIAGA MD | | FEMI MARIE MD | | AMY BANEGAS, DO | + + XR Chest 2 Vws (05/24/2009 11:31 AM PDT) + + | Specimen | + + | | + + + + + | Narrative | Performed At | + + + | [id number] | | | Page 1 RADIOLOGY | | | [facility] [id number]/ | | | OPO [facility] | | | CENTER NAME: [place] [address] | | | | | | | | | DATE OF : 1960 ORDER NUMBER: | | | [id number] EXAM DATE/TIME: 05/24/2009 11:19 A ORDERING PHYSICIAN: [...] DT: | | | 05/24/2009 05:38 P [id number]/[id number]/ cc: VINAY HILL MD | | | MD FEMI FOSS MD JOSEPH | | | P BASSAM DO | | + + + + + | Procedure Note | + + | Kalpesh Brown Conversion - 07/17/2019 2:13 AM PDT | | [id number] Page 1 | | RADIOLOGY CDU 31321/ | | OPO | | [facility] NAME: [address] | | [place] [address] | | | | DATE OF : 1960 | | | | ORDER NUMBER: [id number] | | EXAM DATE/TIME: 05/24/2009 11:19 A [...] | P | | P | | [facility]//[id number]/ | | cc: VINAY HILL MD | | ANGELA MARADIAGA MD | | FEMI MARIE MD | | AMY BANEGAS DO | + + documented in this encounter Visit Diagnoses + + | Diagnosis | + + | Chest pain, unspecified | + + documented in this encounter"
--- OUTSIDE RECORDS SUMMARY | ~2019-10-04 | XMS | Encounter Summary ---
Demographics + + + | Address | [address] | | | [place] [address] | + + + | Home Phone [...] Providers + +------+ + | Care Delivery Table Feeder Name | Role | Phone | [...] + + | 08/04/ | Telephone | [facility] | Silvia, | Other (4 week event | | 2017 | | CARDIOLOGY [address] | [address] | monitor ) | | | | [place], | [place], | | | | | [place] [address] | [place] [address] | | | | | [phone] | [phone] | | | | | | | [...] | | | | | | [place], | | | | | | [place] [address] | | | | | | [phone] | | | | | | | | +--------+ + + + + | 11/20/ | Implant | Cardiology | Daljit Singletary, | Remote Device | | 2018 | Monitor | | [address] [place] | Interrogation | | | | | [place], | (Primary Dx); | | | | | [place] [address] | Presence of | | | | | [phone] | permanent cardiac | | | | [...]
--- OUTSIDE RECORDS SUMMARY | ~2019-10-04 | XMS | Encounter Summary ---
Demographics + + + | Address | [address] | | | [place] [address] | + + + | Home Phone [...] [place], | | | | | [place], [place] | [place] [address] | | | | | [address] | [phone] | | | | | [phone] | | | +--------+---------+ + + + [...] MD - 09/13/2013 5:46 PM PDTSee dictation #[id number] signed by Joseph Gant MD at 09/13/2013 5:52 PM Bahman Lamb MD - 09/13/2013 12:00 AM PDT ENT AND AUDIOLOGY [address] [facility] [address] [place] [address] FAX: [phone] OFFICE VISIT The patient gives a history [...] Gant MD GM / MS JOB #: [id number] signed by Bahman Gant MD at 09/14/2013 12:08 PM PDTdocumente d in this encounter Plan of Treatment +--------+ + + + + | Date | Type | Specialty | Care Team | Description | +--------+ + + + + | 11/09/ | Office | Cardiology | Siliva, | | | 2018 | Visit | | PARISA [place] [address] | | | | | | [place], | | | | | | [place] [address] | | | | | | [phone] | | | | | | | | +--------+ + + + + | 11/20/ | Implant | Cardiology | Dlajit Singletary, | Remote Device | | 2019 | Monitor | | [address] [facility] | Interrogation | | | | | [place], | (Primary Dx); | | | | | [place] [address] | Presence of | | | | | [phone] | permanent cardiac | | | | [...]
--- OUTSIDE RECORDS SUMMARY | ~2019-10-04 | XMS | Encounter Summary ---
Demographics + + + | Address | [address] | | | [place] [address] | + + + | Home Phone [...] Team Providers + +------+ + | Care Speed Belt Sander Name | Role | Phone | + +------+ + | Kirk French MD | PCP | | + +------+ + Encounter Details +--------+---------+ + + + | Date | Type | Department | Care Team | Description | +--------+---------+ + + + | 09/26/ | Office | [facility] | Kirk French | Weight loss (Primary | | 2018 | Visit | [facility] | MD Bre[address] | Dx); Bipolar | | | | [facility] [address] | affective disorder, | | | | [address] | [place] [address] | remission status | | | | [place], [place] | [phone] | unspecified (HCC); | | | | [address] | | Mixed anxiety | | | | [phone] | | depressive disorder; | | | [...] Medtronic Peptic ulcer disease Premature ventricular contraction [facility] health care 06/26/2013 LAST PSA:12/16/2010 [...] LHC; Surgeon: Daljit Singletary MD; Location: [facility] CV LAB CARDIAC CATHERIZATION N/A 01/25/2019 Procedure: CV Cor Angio; Surgeon: Daljit Singletary MD; Location: [facility] CV LAB COLONOSCOPY N/A 12/24/2017 Procedure: COLONOSCOPY; Surgeon: Emmanuel Daniel MD; Location: [facility] MEDICAL PROCEDURE UNIT COLONOSCOPY N/A 01/05/2019 Procedure: COLONOSCOPY; Surgeon: Emmanuel Daniel MD; Location: [facility] MEDICAL PROCEDURE UNIT EGD 12/24/2017 HARDWARE [...] EGD; Surgeon: Emmanuel Daniel MD; Location: [facility] MEDICAL PROCEDURE UNIT UPPER GASTROINTESTINAL ENDOSCOPY N/A 01/05/2019 Procedure: EGD; Surgeon: Emmanuel Daniel MD; Location: [facility] MEDICAL PROCEDURE UNIT URETEROSCOPY Left 04/13/2019 Procedure: Cystoscopy, Left ureteroscopy with laser lithotripsy, Left ureteral stent place ment; Surgeon: Matthew Uriarte MD; Location: [facility] MAIN OR VASECTOMY Social History Socioeconomic [...] NEEDED FOR CHEST PAIN 250 tablet 0 [place]-3 Fatty Acids (SALMON OIL-1000 PO) CAPS, one capsule by mouth daily twice daily ondansetron (ZOFRAN ODT) 4 mg disintegrating tablet Take 4 mg by mouth every 8 hours as needed for Nausea. ONE TOUCH DELICA LANCETS [facility] [...] PLT 169 06/02/2019 No results found for: [id number] No results found for: FOLATE No results [...] Co multiple ER visits Going again to [facility] tomorrow Already followed by GI [...] dollars a month. We will defer to [facility], perhaps to have some sort [...] | | | | | | [place] [address] | | | | | | [phone] | | | | | | | | +--------+ + + + + | 11/20/ | Implant | Cardiology | Daljit Singletary, | Remote Device | | 2018 | Monitor | | MD [place] | Interrogation | | | | | [place], | (Primary Dx); | | | | | [place] [address] | Presence of | | | | | [phone] | permanent cardiac | | | | [...]
--- OUTSIDE RECORDS SUMMARY | ~2019-10-04 | XMS | Encounter Summary ---
Demographics + + + | Address | [address] | | | [place] [address] | + + + | Home Phone [...] Providers + +------+ + | Care Aircraft Lay Out Worker Name | Role | Phone [...] 2012 | | CARDIOLOGY [address] | EMS INSTRUCTOR [address] [place] | to be referred | | | | [place], | [place], [place] | soon) | | | | [place] [address] | [address] | | | | | [phone] | | | +--------+ + + + [...] W | | | | | | [place], | | | | | | [place] [address] | | | | | | [phone] | | | | | | | | +--------+ + + + + | 11/20/ | Implant | Cardiology | Daljit Singletary, | Remote Device | | 2018 | Monitor | | [address] [place] | Interrogation | | | | | [place], | (Primary Dx); | | | | | [place] [address] | Presence of | | | | | [phone] | permanent cardiac | | | | [...]
--- OUTSIDE RECORDS SUMMARY | ~2019-10-04 | XMS | Encounter Summary ---
Demographics + + + | Address | [address] | | | [place] [address] | + + + | Home Phone [...] Providers + +------+ + | Care Acid Conditioning Worker Name | Role | Phone | [...] [address] | | | | | | [place], [place] | (Fax) | | | | | [address] | | | | | | [phone] | | | +--------+ + + + [...] | | | | | | [place] [address] | | | | | | [phone] | | | | | | | | +--------+ + + + + | 11/20/ | Implant | Cardiology | Daljit Singletary, | Remote Device | | 2018 | Monitor | | [address] [facility] | Interrogation | | | | | [place], | (Primary Dx); | | | | | [place] [address] | Presence of | | | | | [phone] | permanent cardiac | | | | [...]
--- OUTSIDE RECORDS SUMMARY | ~2019-10-04 | XMS | Encounter Summary ---
Demographics + + + | Address | [address] | | | [place] [address] | + + + | Home Phone [...] Providers + +------+ + | Care Client Technical Support Associate Name | Role | Phone [...] [place] | | | | | | [address] | | | | | | [phone] | | | | | | | [...] | | | | | | [place] [address] | | | | | | [phone] | | | | | | | | +--------+ + + + + | 11/20/ | Implant | Cardiology | Daljit Singletary, | Remote Device | | 2018 | Monitor | | [address] [facility] | Interrogation | | | | | [place], | (Primary Dx); | | | | | [place] [address] | Presence of | | | | | [phone] | permanent cardiac | | | | [...]
--- OUTSIDE RECORDS SUMMARY | ~2019-10-04 | XMS | Encounter Summary ---
Demographics + + + | Address | [address] | | | [place] [address] | + + + | Home Phone [...] + +------+ + | Care Quality Control Chemist Name | Role | Phone | [...] + + | 04/07/ | Office | [facility] | Matthew Uriarte | Left ureteral | | 2019 | Visit | [address] | MD Tawanna [address] | calculus (Primary | | | | [place], [place] | [place] | Dx); Kidney stones | | | | [address] | [address] | | | | | [phone] | | | +--------+---------+ + + + [...] 13, 2019 at 7:[address] [facility]. Please report to the [facility] no later than 6:15 AM. REMEMBER: NOTHING TO EAT OR DRINK AFTER MIDNIGHT April 12, 2019. NO FISH OIL, ASPIRIN OR ASPIRIN PRODUCTS ONE WEEK PRIOR TO SURGERY. Tylenol and Advil are OK. You will need to get the following testing done prior to surgery: CBC, BMP YOU WILL NEED TO BRING A MEDICAL CHARGE ENTRY SPECIALIST WITH YOU THE DAY OF SURGERY. Call us at [phone] with any questions. [] Pain management booklet [...] Medtronic Peptic ulcer disease Premature ventricular contraction [facility] care 06/26/2013 LAST PSA:12/16/2010 RESULT:0.14 LAST COLONOSCOPY:02/05/2009 [...] Location: [facility] MEDICAL PROCEDURE UNIT VASECTOMY Family History: [...] EVERY DAY, Disp: 90 tablet, Rfl: 3 [facility]d [facility] Natural Products (OSTEO BI-FLEX/5-LOXIN ADVANCED PO), Take [...] 911, Disp: 100 ta blet, Rfl: 3 [place]-3 Fatty Acids (SALMON OIL-1000 PO), CAPS, one capsule by mouth daily twice daily , Disp: , Rfl: ondansetron (ZOFRAN ODT) 4 mg disintegrating tablet, Take 4 mg by mouth., Disp: , Rfl: ONE TOUCH DELICA LANCETS [facility], Check glucose as needed for hypoglycemia, Disp: [...] have not thoroughly proofread this note, and washateria attendant errors are very likely to occur. CC: [...] W | | | | | | [place], | | | | | | [place] [address] | | | | | | [phone] | | | | | | | | +--------+ + + + + | 11/20/ | Implant | Cardiology | Daljit Singletary, | Remote Device | | 2018 | Monitor | | MD [address] [place] | Interrogation | | | | | [place], | (Primary Dx); | | | | | [place] [address] | Presence of | | | | | [phone] | permanent cardiac | | | | [...]
--- OUTSIDE RECORDS SUMMARY | ~2019-10-04 | XMS | Clinical Summary ---
Demographics + + + | Address | [address] | | | [place] [address] | + + + | Home Phone | | + + + | Preferred Language | Unknown | + + + | Marital Status | | + + + | Holiness Affiliation | 1013 | + + + | Race | Unknown | + + + | Ethnic Group | Unknown | + + + Author + + + | Author | [facility] (Historical as of | | | 07-08-19) | + + + | Organization | [facility] (Historical as of | | | 07-08-19) [...] Team Providers + +------+ + | Care Rocket Propellant Plant Supervisor Name | Role | Phone [...] + | AUTO INSURANCE | AUTO | [id number] | | | | | | INSURA | | | | | | | NCE | | | | | | | GENERI | | | | | | | C | | | | | + +--------+ +------+-------+ + | AUTO INSURANCE | AUTO | [id number] | | | | | | INSURA | [id number] | | | | | | NCE | | | | | | | GENERI | | | | | | | C | | | | | + +--------+ +------+-------+ + | MEDICARE | MEDICA | [id number] | | | [address] | | | RE | | | | [place], [place] [address] | | | IP-OP | | | | | + +--------+ +------+-------+ + | [facility] | SPENCER | [id number] | | | | | | | [...] | Self | [birth year] | Home: | [address] | | | al/Fam | | 9 | [address]1- | [address] [place], [place] | | | roxanne | | | [address] | [address] | + +--------+ +--------+ + + | AMILCAR GAY | Third | Self | [birth year] | Home: | [address] | | | Republican | | 9 | +- | [place], [place] | | | Liabil | | | [address] | [address] | | | ity | | | | | + +--------+ +--------+ + + | AMILCAR GAY | Third | Self | [birth year] | Home: | [address] | | | Republican | | 1960 | +- | [place], [place] | | | Liabil | | | [address] | [address] | | | ity | | | | | + +--------+ +--------+ + +
--- OUTSIDE RECORDS SUMMARY | ~2019-10-04 | XMS | Encounter Summary ---
Demographics + + + | Address | [address] | | | [place] [address] | + + + | Home Phone [...] Providers + +------+ + | Care Bottom Painter Name | Role | Phone | [...] | CARDIOLOGY [address] | [address] | reprogramming/check | | | | [place], | [place], | DO NOT DELETE | | | | [place] [address] | [place] [address] | (Primary Dx); | | | | [phone] | [phone] | Sinoatrial node | | | | [...] W | | | | | | [place], | | | | | | [place] [address] | | | | | | [phone] | | | | | | | | +--------+ + + + + | 11/20/ | Implant | Cardiology | Daljit Singletary, | Remote Device | | 2018 | Monitor | | MD [address] [place] | Interrogation | | | | | [place], | (Primary Dx); | | | | | [place] [address] | Presence of | | | | | [phone] | permanent cardiac | | | | [...] 1960: | | AGE: 56 y.o.[facility] 2015Reason for evaluation: | | routineIndication [...]
--- OUTSIDE RECORDS SUMMARY | ~2019-10-04 | XMS | Encounter Summary ---
Demographics + + + | Address | [address] | | | [place] [address] | + + + | Home Phone [...] Team Providers + +------+ + | Care Mothers Helper Name | Role | Phone | [...] [address] | | | | | [place], | [place], | | | | | [place] [address] | [place] [address] | | | | | [phone] | [phone] | | | | | | | [...] | | | | | | [place] [address] | | | | | | [phone] | | | | | | | | +--------+ + + + + | 11/20/ | Implant | Cardiology | Daljit Singletary, | Remote Device | | 2018 | Monitor | | [address] [place] | Interrogation | | | | | [place], | (Primary Dx); | | | | | [place] [address] | Presence of | | | | | [phone] | permanent cardiac | | | | [...]
--- OUTSIDE RECORDS SUMMARY | ~2019-10-04 | XMS | Encounter Summary ---
Demographics + + + | Address | [address] | | | [place] [address] | + + + | Home Phone [...] Providers + +------+ + | Care Sales Solutions Representative Name | Role | Phone | [...] [address] | | | | | [place], | [place], | | | | | [place] [address] | [place] [address] | | | | | [phone] | [phone] | | | | | | | [...] W | | | | | | [place], | | | | | | [place] [address] | | | | | | [phone] | | | | | | | | +--------+ + + + + | 11/20/ | Implant | Cardiology | Daljit Singletary, | Remote Device | | 2018 | Monitor | | [address] [place] | Interrogation | | | | | [place], | (Primary Dx); | | | | | [place] [address] | Presence of | | | | | [phone] | permanent cardiac | | | | [...] [address] | [place] | [phone] | | [facility] | | [address] | | | - LABORATORY | | [...]
--- OUTSIDE RECORDS SUMMARY | ~2019-10-04 | XMS | Encounter Summary ---
Demographics + + + | Address | [address] | | | [place] [address] | + + + | Home Phone [...] + +------+ + | Care Complaint Evaluation Officer Name | Role | Phone | + +------+ + | Kirk French MD | PCP | | + +------+ + Encounter Details +--------+ + + + + | Date | Type | Department | Care Team | Description | +--------+ + + + + | 01/18/ | Hospital | [facility] | Conversion | Diagnosis unknown | | 2017 | Encounter | CONVERSION [address] | Transaction, | | | | | [address] | Provider Unknown | | | | | [place], [place] | [phone] | | | | | [address] | | | | | | [phone] | | | +--------+ + + + [...] + + + +---------+ + + | [place]-3 Fatty | CAPS, one capsule by | [...] | | | | | | [place] [address] | | | | | | [phone] | | | | | | | | +--------+ + + + + | 11/20/ | Implant | Cardiology | Daljit Singletary, | Remote Device | | 2019 | Monitor | | MD [address] [facility] | Interrogation | | | | | [place], | (Primary Dx); | | | | | [place] [address] | Presence of | | | | | [phone] | permanent cardiac | | | | [...]
--- OUTSIDE RECORDS SUMMARY | ~2019-10-04 | XMS | Encounter Summary ---
Demographics + + + | Address | [address] | | | [place] [address] | + + + | Home Phone [...] Team Providers + +------+ + | Care Methods Study Analyst Name | Role | Phone | [...] | | | | [place] | [address] | | | | | [address] | | | | | | [phone] | | | +--------+ + + + [...] W | | | | | | [place], | | | | | | [place] [address] | | | | | | [phone] | | | | | | | | +--------+ + + + + | 11/20/ | Implant | Cardiology | Daljit Singletary, | Remote Device | | 2018 | Monitor | | MD [address] | Interrogation | | | | | [place], | (Primary Dx); | | | | | [place] [address] | Presence of | | | | | [phone] | permanent cardiac | | | | [...]
--- OUTSIDE RECORDS SUMMARY | ~2019-10-04 | XMS | Encounter Summary ---
Demographics + + + | Address | [address] | | | [place] [address] | + + + | Home Phone [...] + +------+ + | Care Quality Control Clerk Name | Role | Phone [...] | RN | | | | | [place], | | | | | | [place] [address] | | | | | | [phone] | | | +--------+ + + + [...] | | | | | | [place] [address] | | | | | | [phone] | | | | | | | | +--------+ + + + + | 11/20/ | Implant | Cardiology | Daljit Singletary, | Remote Device | | 2019 | Monitor | | [address] [facility] | Interrogation | | | | | [place], | (Primary Dx); | | | | | [place] [address] | Presence of | | | | | [phone] | permanent cardiac | | | | [...]
--- OUTSIDE RECORDS SUMMARY | ~2019-10-04 | XMS | Encounter Summary ---
Demographics + + + | Address | [address] | | | [place] [address] | + + + | Home Phone [...] + + + + | 07/20/ | [facility] | [facility] | Hunter Antunez, | | | 2009 - | Encounter | MED CTR MED ONC | [address] | | | | | [address] [place] | [place] | | | 07/24/ | | [place] [address] | [address] | | | 2009 | | [phone] | | | +--------+ + + + [...] [place] | | | | | | [place] [address] | | | | | | [phone] | | | | | | | | +--------+ + + + + | 11/20/ | Implant | Cardiology | Daljit Singletary, | Remote Device | | 2019 | Monitor | | MD [address] | Interrogation | | | | | [place], | (Primary Dx); | | | | | [place] [address] | Presence of | | | | | [phone] | permanent cardiac | | | | [...]
--- OUTSIDE RECORDS SUMMARY | ~2019-10-04 | XMS | Encounter Summary ---
Demographics + + + | Address | [address] | | | [place] [address] | + + + | Home Phone [...] Team Providers + +------+ + | Care Datapower Consultant Name | Role | Phone | [...] Refill | | 2013 | | MEDICINE [place] | DO [address] | | | | | [address] | [place] | | | | | [place] | [address] | | | | | [address] | | | | | | [phone] | | | +--------+--------+ + + + [...] W | | | | | | [place], | | | | | | [place] [address] | | | | | | [phone] | | | | | | | | +--------+ + + + + | 11/20/ | Implant | Cardiology | Daljit Singletary, | Remote Device | | 2018 | Monitor | | [address] [facility] | Interrogation | | | | | [place], | (Primary Dx); | | | | | [place] [address] | Presence of | | | | | [phone] | permanent cardiac | | | | [...]
--- OUTSIDE RECORDS SUMMARY | ~2019-10-04 | XMS | Encounter Summary ---
Demographics + + + | Address | [address] | | | [place] [address] | + + + | Home Phone [...] Providers + +------+ + | Care Neck Band Setter Name | Role | Phone | [...] [place] | | | | | | [address] | | | | | | [phone] | | | +--------+ + + + [...] W | | | | | | [place], | | | | | | [place] [address] | | | | | | [phone] | | | | | | | | +--------+ + + + + | 11/20/ | Implant | Cardiology | Daljit Singletary, | Remote Device | | 2018 | Monitor | | [address] [facility] | Interrogation | | | | | [place], | (Primary Dx); | | | | | [place] [address] | Presence of | | | | | [phone] | permanent cardiac | | | | [...]
--- OUTSIDE RECORDS SUMMARY | ~2019-10-04 | XMS | Encounter Summary ---
Demographics + + + | Address | [address] | | | [place] [address] | + + + | Home Phone [...] Team Providers + +------+ + | Care Arborer Name | Role | Phone | + [...] [address] | | | | | | [place], [place] | (Fax) | | | | | [address] | | | | | | [phone] | | | +--------+ + + + [...] | | | | | | [place] [address] | | | | | | [phone] | | | | | | | | +--------+ + + + + | 11/20/ | Implant | Cardiology | Daljit Singletary, | Remote Device | | 2018 | Monitor | | [address] [facility] | Interrogation | | | | | [place], | (Primary Dx); | | | | | [place] [address] | Presence of | | | | | [phone] | permanent cardiac | | | | [...]
--- OUTSIDE RECORDS SUMMARY | ~2019-10-04 | XMS | Encounter Summary ---
Demographics + + + | Address | [address] | | | [place] [address] | + + + | Home Phone [...] Providers + +------+ + | Care Certified Medication Aide Name | Role | Phone | + +------+ + PCP | Unavailable | + +------+ + Encounter Details +--------+ + + + + | Date | Type | Department | Care Team | Description | +--------+ + + + + | 05/13/ | Hospital | [facility] | | | | 2007 | Encounter | MED CTR EMERGENCY | | | | | | [place] [address] | | | | | | [place] | | | | | | [address] | | | | | | [phone] | | | +--------+ + + + [...] | | | | | | [place] [address] | | | | | | [phone] | | | | | | | | +--------+ + + + + | 11/20/ | Implant | Cardiology | Daljit Singletary, | Remote Device | | 2018 | Monitor | | [address] [facility] | Interrogation | | | | | [place], | (Primary Dx); | | | | | [place] [address] | Presence of | | | | | [phone] | permanent cardiac | | | | [...]
--- OUTSIDE RECORDS SUMMARY | ~2019-10-04 | XMS | Encounter Summary ---
Demographics + + + | Address | [address] | | | [place] [address] | + + + | Home Phone [...] | Organization | [facility] | | | [...] Providers + +------+ + | Care Hull Outfit Supervisor Name | Role | Phone | + +------+ + PCP | Unavailable | + +------+ + Encounter Details +--------+ + + + + | Date | Type | Department | Care Team | Description | +--------+ + + + + | 01/17/ | [facility] | [facility] | Jonas Ramos, | | | 2009 | Encounter | MED CTR EMERGENCY | MD [address] | | | | | CENTER [address] | [facility] [place] | | | | | [place] | [place] [address] | | | | | [address] | [phone] | | | | | [phone] | | | +--------+ + + + [...] W | | | | | | [place], | | | | | | [place] [address] | | | | | | [phone] | | | | | | | | +--------+ + + + + | 11/20/ | Implant | Cardiology | Daljit Singletary, | Remote Device | | 2019 | Monitor | | MD Sim [facility] | Interrogation | | | | | [place], | (Primary Dx); | | | | | [place] [address] | Presence of | | | | | [phone] | permanent cardiac | | | | [...]
--- OUTSIDE RECORDS SUMMARY | ~2019-10-04 | XMS | Encounter Summary ---
Demographics + + + | Address | [address] | | | [place] [address] | + + + | Home Phone [...] Providers + +------+ + | Care Power Crane Operator Name | Role | Phone [...] [address] | | | | [place] [address], | [place], | | | | | [place] [address] | [place] [address] | | | | | [phone] | [phone] | | | | | | | [...] | | | | | | [place] [address] | | | | | | [phone] | | | | | | | | +--------+ + + + + | 11/20/ | Implant | Cardiology | Daljit Singletary, | Remote Device | | 2018 | Monitor | | [address] [facility] [place] | Interrogation | | | | | [place], | (Primary Dx); | | | | | [place] [address] | Presence of | | | | | [phone] | permanent cardiac | | | | [...]
--- OUTSIDE RECORDS SUMMARY | ~2019-10-04 | XMS | Encounter Summary ---
Demographics + + + | Address | [address] | | | [place] [address] | + + + | Home Phone [...] Providers + +------+ + | Care Supervisor Filtration Name | Role | Phone | + [...] | 03/02/ | Telephone | [facility] [place] | Daljit Singletary, | Other | | 2013 | | CARDIOLOGY [address] | MD [address] [place] | | | | | [place], | [place], | | | | | [place] [address] | [place] [address] | | | | | [phone] | [phone] | | | | | | | [...] W | | | | | | [place], | | | | | | [place] [address] | | | | | | [phone] | | | | | | | | +--------+ + + + + | 11/20/ | Implant | Cardiology | Daljit Singletary, | Remote Device | | 2018 | Monitor | | MD Chiquis Oro | Interrogation | | | | | [place], | (Primary Dx); | | | | | [place] [address] | Presence of | | | | | [phone] | permanent cardiac | | | | [...]
--- OUTSIDE RECORDS SUMMARY | ~2019-10-04 | XMS | Encounter Summary ---
Demographics + + + | Address | [address] | | | [place] [address] | + + + | Home Phone [...] Team Providers + +------+ + | Care Tankerman Name | Role | Phone | + +------+ + PCP | Unavailable | + +------+ + Encounter Details +--------+ + + + + | Date | Type | Department | Care Team | Description | +--------+ + + + + | 04/28/ | [facility] | [facility] | Jonathan, | | | 2008 | Encounter | MED CTR EMERGENCY | Martell Cr MD [address] | | | | | CENTER [address] [place] | [place] | | | | | [place] | [place] [address] | | | | | [address] | [phone] | | | | | [phone] | | | +--------+ + + + [...] W | | | | | | [place], | | | | | | [place] [address] | | | | | | [phone] | | | | | | | | +--------+ + + + + | 11/20/ | Implant | Cardiology | Daljit Singletary, | Remote Device | | 2019 | Monitor | | MD Chiquis Oro | Interrogation | | | | | [place], | (Primary Dx); | | | | | [place] [address] | Presence of | | | | | [phone] | permanent cardiac | | | | [...]
--- OUTSIDE RECORDS SUMMARY | ~2019-10-04 | XMS | Encounter Summary ---
Demographics + + + | Address | [address] | | | [place] [address] | + + + | Home Phone [...] Team Providers + +------+ + | Care Actuarial Manager Name | Role | Phone | [...] + + | 06/06/ | Office | [facility] | [place]via, | Essential | | 2019 | Visit | CARDIOLOGY [address] | PARISA [place] [address] | hypertension | | | | [place], | [place], | (Primary Dx); | | | | [place] [address] | [place] [address] | Sinoatrial node | | | | [phone] | [phone] | dysfunction (HCC) | | | | | | with symptomatic | | | | | | bradycardia; | | | | | | Symptomatic PVCs; | | | | | | Tachycardia; | | | | | | Coronary artery | | | | | | disease involving | | | | | | saxman coronary | | | | | | artery of saxman | | | | | | heart [...] encounter Patient Instructions Patient Instructions Julia Allen, Solar Systems Designer - 06/06/2019 2:15 PM PDT1. Take a [...] of -critical coronary artery dise ase involving saxman coronary artery of saxman heart without angina pectoris, essential hype rtension, [...] seen in the emergency department at [facility] in [place] due to chest pain, no medication changes at that time. On 06/02/2019 [facility] was [facility] with [facility] pain, irregular [...] Coronary artery disease involving saxman coronary artery of saxman heart without angina pectoris Cannabis abuse, daily [...] 3RD DOSE, CALL 911 100 tablet 3 Mobile-3 Fatty Acids (SALMON OIL-1000 PO) CAPS, one capsule by mouth daily twice daily ondansetron (ZOFRAN ODT) 4 mg disintegrating tablet Take 4 mg by mouth every 8 hours as needed for Nausea. ONE TOUCH DELICA LANCETS [facility] [...] Care: LIPID Lab Results Component Value Date TRIG [...] Care for emergency department visit o n 06/02/2019 which is summarized in the HPI. RESULTS- I reviewed reports from [facility]: Ct Abdomen Pelvis W Contrast Result Date: [...] ASSESSMENT: 1. Non-critical Coronary artery disease involving saxman coronary artery of saxman heart [facility] angina pectoris: A.Normal exercise sestamibi stress test [...] [facility] on 01/30/2013.Patient had spontaneous PVC'sfr om [...] to go back in 3 days to [place] for an attempt of ablation under general [...] a normal stable device function. Estimated remaining [facility] longevity is 3.5 years. D. [...] visit, or sooner with concerns. Julia Clemente, Solar Systems Designer am acting as a scribe on behalf of, and in the presenc e of PARISA Lomas. - Reji Church 06/06/2019 15:10 Janeen Clemente ARNP, personally performed the services described in this documentati on, as scribed in my presence and it is both accurate and complete. -PARISA Lomas 06/06/2019 Portions of this chart may have been created with Xero voice recognition software. Occasi onal wrong-word or [...] | | | | | | [place] [address] | | | | | | [phone] | | | | | | | | +--------+ + + + + | 11/20/ | Implant | Cardiology | Sydni Singletary, | Remote Device | | 2018 | Monitor | | MD [place] | Interrogation | | | | | [place], | (Primary Dx); | | | | | [place] [address] | Presence of | | | | | [phone] | permanent cardiac | | | | [...] MD | | | | | | ([id number]) on 06/06/2019 | | | | | [...] Coronary artery disease involving saxman coronary artery of saxman heart without | | angina pectoris | + + | Syncope, unspecified syncope type | + + | Ascending thoracic aortic aneurysm (HCC) Thoracic aneurysm without mention of rupture | + + | Hyperlipidemia, mixed Mixed hyperlipidemia | + + documented in this encounter
--- OUTSIDE RECORDS SUMMARY | ~2019-10-04 | XMS | Encounter Summary ---
Demographics + + + | Address | [address] | | | [place] [address] | + + + | Home Phone [...] Team Providers + +------+ + | Care Tubular Riveter Name | Role | Phone | [...] unspecified | [address] | [address] | | | | | type | [address] | [place], | | | | | Procedures | [place], | [place] | | | | | [place] | [place] [address] | [address] | | | | | Stress Test | Phone: | Phone: | | | | | (Vasodilator | [phone] | [phone] | | | | | ) CHG | Fax: | Fax: | | | | | MYOCARDIAL | [phone] | [phone] | | | | | SPECT | | | | | | | MULTIPLE | | | | | | | STUDIES MA | | | | | | | CV STRS TST | | | | | | | XERS&/OR RX | | | | | | | CONT ECG W/O | | | | | | | I&R MA | | | | | | [...] unspecified | [address] | [address] | | | | | type | [address] | [place], | | | | | Procedures | [place], | [place] | | | | | [place] | [place] [address] | [address] | | | | | Stress Test | Phone: | Phone: | | | | | (Vasodilator | [phone] | [phone] | | | | | ) CHG | Fax: | Fax: | | | | | MYOCARDIAL | [phone] | [phone] | | | | | SPECT | | | | | | | MULTIPLE | | | | | | | STUDIES MA | | | | | | | CV STRS TST | | | | | | | XERS&/OR RX | | | | | | | CONT ECG W/O | | | | | | | I&R MA | | | | | | [...] + + | 07/21/ | Hospital | [facility] | Daljit Singletray, | Chest pain, | | 2018 | Encounter | MED CTR NUCLEAR | MD [address] | unspecified type | | | | MEDICINE [address] | [address], | | | | | [place], | [place] [address] | | | | | [place] [address] | [phone] | | | | | [phone] | | | | | | | Environmental AuditorPavel | | +--------+ + + + + [...] + + + +---------+ + + | [place]-3 Fatty | CAPS, one capsule by [...] | | | | | | [place] [address] | | | | | | [phone] | | | | | | | | +--------+ + + + + | 11/20/ | Implant | Cardiology | Daljit Singletary, | Remote Device | | 2019 | Monitor | | [address] [facility] | Interrogation | | | | | [place], | (Primary Dx); | | | | | [place] [address] | Presence of | | | | | [phone] | permanent cardiac | | | | [...] | | | | | doctor, Starting [facility] 07/21/18 at | | | | | [...] | | | Starting [facility] 07/21/18 at 0822, For | | | | | | | 1 dose, Nuclear Medicine | | | | | | + +-------+ + +---+---+ +---+---+ | | | +---+---+ documented in this encounter"
--- OUTSIDE RECORDS SUMMARY | ~2019-10-04 | XMS | Encounter Summary ---
Demographics + + + | Address | [address] | | | [place] [address] | + + + | Home Phone [...] Providers + +------+ + | Care Rivet Flunky Name | Role | Phone | + [...] | Office | [facility] | [place], | Chest pain (Primary | | 2013 | Visit | CARDIOLOGY [address] | PARISA [place] [address] | Dx); Symptomatic | | | | [place], | [place], | PVCs; | | | | [place] [address] | [place] [address] | Hyperlipidemia; | | | | [phone] | [phone] | Hypertension; | | | | | [...] this time to see a specialist in [place] and he was to follow up with [...] MOUTH EVERY DAY 30 table t 5 [place]-3 Fatty Acids (SALMON OIL-1000 PO) CAPS, [...] to go back in 3 days to [place] for an attempt of ablation under general [...] weeks. He is in class II of [place] [employer] funct ional class. There are [...] tolic function, LVEF 65 to 70%. B. [employer] DDD permanent pacemaker implantation on 06/14/09 by [...] made to ensure accuracy; however, inadvertent computerized vamp wetter errors may be pre sent. documented in this encounter Plan of Treatment +--------+ + + + + | Date | Type | Specialty | Care Team | Description | +--------+ + + + + | 11/09/ | Office | Cardiology | Silvia, | | | 2019 | Visit | | PARISA Vernon [address] | | | | | | [place], | | | | | | [place] [address] | | | | | | [phone] | | | | | | | | +--------+ + + + + | 11/20/ | Implant | Cardiology | Daljit Singletary, | Remote Device | | 2019 | Monitor | | [address] [place] | Interrogation | | | | | [place], | (Primary Dx); | | | | | [place] [address] | Presence of | | | | | [phone] | permanent cardiac | | | | [...] of unspecified type of vessel, | | tetlin or graft | + + documented in this encounter
--- OUTSIDE RECORDS SUMMARY | ~2019-10-04 | XMS | Encounter Summary ---
Demographics + + + | Address | [address] | | | [place] [address] | + + + | Home Phone [...] Providers + +------+ + | Care Skimmer Reverberatory Name | Role | Phone | + [...] 2019 | | GASTROENTEROLOGY | [address], [place] | Recommendations | | | | [address] [place] | [address] [place], [place] | | | | | [address] [place], [place] | [address] | | | | | [address] | | | | | | [phone] | | | +--------+ + + + [...] | | | | | | [place] [address] | | | | | | [phone] | | | | | | | | +--------+ + + + + | 11/20/ | Implant | Cardiology | Daljit Singletary, | Remote Device | | 2018 | Monitor | | [address] | Interrogation | | | | | [place], | (Primary Dx); | | | | | [place] [address] | Presence of | | | | | [phone] | permanent cardiac | | | | [...]
--- OUTSIDE RECORDS SUMMARY | ~2019-10-04 | XMS | Encounter Summary ---
Demographics + + + | Address | [address] | | | [place] [address] | + + + | Home Phone [...] Providers + +------+ + | Care Magazine Filler Name | Role | Phone | [...] [place] | | | | | [address] [place], [place] | [address] | | | | | [address] | | | | | | [phone] | | | +--------+ + + + [...] W | | | | | | [place], | | | | | | [place] [address] | | | | | | [phone] | | | | | | | | +--------+ + + + + | 11/20/ | Implant | Cardiology | Daljit Singletary, | Remote Device | | 2018 | Monitor | | [address] [facility] | Interrogation | | | | | [place], | (Primary Dx); | | | | | [place] [address] | Presence of | | | | | [phone] | permanent cardiac | | | | [...]
--- OUTSIDE RECORDS SUMMARY | ~2019-10-04 | XMS | Encounter Summary ---
Demographics + + + | Address | [address] | | | [place] [address] | + + + | Home Phone [...] + +------+ + | Care Customer Service Representative Teacher Name | Role | Phone | [...] [address] | | | | | [place], | [place], | | | | | [place] [address] | [place] [address] | | | | | [phone] | [phone] | | | | | | | [...] | | | | | | [place], | | | | | | [place] [address] | | | | | | [phone] | | | | | | | | +--------+ + + + + | 11/20/ | Implant | Cardiology | Daljit Singletary, | Remote Device | | 2018 | Monitor | | 401 [facility] | Interrogation | | | | | [place], | (Primary Dx); | | | | | [place] [address] | Presence of | | | | | [phone] | permanent cardiac | | | | [...]
--- OUTSIDE RECORDS SUMMARY | ~2019-10-04 | XMS | Encounter Summary ---
Demographics + + + | Address | [address] | | | [place] [address] | + + + | Home Phone [...] Providers + +------+ + | Care Lead Instructor/Flight Attendant Name | Role | Phone | + +------+ + PCP | Unavailable | + +------+ + Encounter Details +--------+ + + + + | Date | Type | Department | Care Team | Description | +--------+ + + + + | 05/02/ | [facility] | [facility] | Jonathan, | | | 2009 | Encounter | MED CTR EMERGENCY | Martell Cr MD [address] | | | | | CENTER [address] | [place] | | | | | [place] | [place] [address] | | | | | [address] | [phone] | | | | | [phone] | | | +--------+ + + + [...] W | | | | | | [place], | | | | | | [place] [address] | | | | | | [phone] | | | | | | | | +--------+ + + + + | 11/20/ | Implant | Cardiology | Daljit Singletary, | Remote Device | | 2019 | Monitor | | MD Chiquis Oro | Interrogation | | | | | [place], | (Primary Dx); | | | | | [place] [address] | Presence of | | | | | [phone] | permanent cardiac | | | | [...]
--- OUTSIDE RECORDS SUMMARY | ~2019-10-04 | XMS | Encounter Summary ---
Demographics + + + | Address | [address] | | | [place] [address] | + + + | Home Phone [...] Providers + +------+ + | Care Dispatch Officer Name | Role | Phone | [...] | | | | [place] | [address] | | | | | [address] | | | | | | [phone] | | | +--------+ + + + [...] | | | | | | [place] [address] | | | | | | [phone] | | | | | | | | +--------+ + + + + | 11/20/ | Implant | Cardiology | Daljit Singletary, | Remote Device | | 2019 | Monitor | | MD 401 [facility] | Interrogation | | | | | [place], | (Primary Dx); | | | | | [place] [address] | Presence of | | | | | [phone] | permanent cardiac | | | | [...] | [facility] | [address] | [place] | [phone] | | [facility] | | [address] | | | - LABORATORY | | | | + + + + + | [facility] | [address] | [place] | | | [facility] | | [address] | | | - LABORATORY | | [...] | | | | | | | [place], | | | [...]
--- OUTSIDE RECORDS SUMMARY | ~2019-10-04 | XMS | Encounter Summary ---
Demographics + + + | Address | [address] | | | [place] [address] | + + + | Home Phone [...] Providers + +------+ + | Care Poultry Farm Manager Name | Role | Phone [...] | Aneurysmal | [place], | [address] [place] | | | | | dilatation | PARISA Solis | [place], | | | | | ([facility]) | [address] | [place] | | | | | Procedures | [place] | [address] | | | | | ECHO | [place], | Phone: | | | | | Complete | [place] | [phone] | | | | | | [address] | Fax: | | | | | | Phone: | [phone] | | | | | | [phone] | | | | | | | Fax: | | | | | | | [phone] | | +--------+--------+ + + + + [...] | | | | | Aneurysmal | [place], | [address] [place] | | | | | dilatation | PARISA Solis | [place], | | | | | ([facility]) | [address] | [place] | | | | | Procedures | [place] | [address] | | | | | ECHO | [place], | Phone: | | | | | Complete | [place] | [phone] | | | | | | [address] | Fax: | | | | | | Phone: | [phone] | | | | | | [phone] | | | | | | | Fax: | | | | | | | [phone] | | +--------+--------+ + + + + Encounter Details +--------+ + + + + | Date | Type | Department | Care Team | Description | +--------+ + + + + | 11/16/ | Hospital | [facility] | [place], | Aneurysmal | | 2017 | Encounter | MED CTR ECHO [address] | Janeen, FLEXIBLE BABYSITTER [address] | dilatation (HCC) | | | | [place] | [place], | | | | | [place], [place] [address] | [place] [address] | | | | | [phone] | [phone] | | | | | | | [...] + + + +---------+ + + | [place]-3 Fatty | CAPS, one capsule by [...] | | | | | | [place] [address] | | | | | | [phone] | | | | | | | | +--------+ + + + + | 11/20/ | Implant | Cardiology | Sydni Singletary, | Remote Device | | 2019 | Monitor | | MD 401 [facility] | Interrogation | | | | | [place], | (Primary Dx); | | | | | [place] [address] | Presence of | | | | | [phone] | permanent cardiac | | | | [...] Patient Name VICTOR HUGO | | | [place] Room Number SARAH Patient | | | [id number] Date of Study 11/16/2017 Number | | | Visit Number [id number] | | | Referring Physician GURJIT TROY Number | | | NORMA SOLIS Date | | | of 1960 Medicine Man ROMAINE | | | MARISSA TIPTON Age 57 year(s) Interpreting | | | GURJIT TROY | | | Inker Machine SYDNI SINGLETARY, | | | MD | | | Gender Male Nurse | | | Stress Residential Caregiver Procedure Type of | | | Study [...] | | | EF | | | Yyzcwxpzn97% Left Ventricle Diastolic Dimension: 5.12 cm | [...] Volume: 46.33 ml | | | EF Tccqnbkbs52% | | | | | | Left [...] Rad Results In - 11/16/2017 1:48 PM [facility] Transthoracic Echocardiography Report | | (TTE) Demographics Patient Name VICTOR HUGO BARRY Room Number SARAH | | Patient [id number] Date of Study 11/16/2017 Number Visit Number | | [id number] Referring Physician GURJIT TROY | | Number NORMA SOLIS Date of | | 1960 Medicine Man ROMAINE TIPTON [facility] Age 57 year(s) | | Interpreting GURJIT TROY Inker Machine | | SYDNI SINGLETARY MD | | [...] [place] Volume: 46.33 ml | | EF Csfiofqva57% Left Ventricle Diastolic Dimension: 5.12 cm Systolic [...] [place] Volume: 46.33 ml | | EF Snerhwzvl82% | | | | Left Ventricle | [...]
--- OUTSIDE RECORDS SUMMARY | ~2019-10-04 | XMS | Encounter Summary ---
Demographics + + + | Address | [address] | | | [place] [address] | + + + | Home Phone [...] Team Providers + +------+ + | Care Ctc Operator Name | Role | Phone | + +------+ + | Michael Amanda DO | PCP | | + +------+ + Encounter Details +--------+ + + + + | Date | Type | Department | Care Team | Description | +--------+ + + + + | 01/31/ | Hospital | [facility] | Adrian Gutierrez MD | | | 2012 | Encounter | HEART MED CTR | [address] | | | | | EMERGENCY CENTER | [place], [place] | | | | | [address] | [address] | | | | | [place] | [phone] | | | | | [address] | | | | | | [phone] | | | +--------+ + + + [...] + + + +---------+ + + | [place]-3 Fatty | CAPS, one capsule by | [...] | | | | | | [place] [address] | | | | | | [phone] | | | | | | | | +--------+ + + + + | 11/20/ | Implant | Cardiology | Daljit Singletary, | Remote Device | | 2019 | Monitor | | [address] [facility] | Interrogation | | | | | [place], | (Primary Dx); | | | | | [place] [address] | Presence of | | | | | [phone] | permanent cardiac | | | | [...] + + + | Exam Performed Location: [facility] | MISCELANIOUS | | CHEST CLINICAL [...] | an acute cardiopulmonary process. S: SQ ([id number]) Signed by: | | | JAYNE SPEAR MD | | + + + + + | Procedure Note | + + | Kevin, Rad Conversion - 09/13/2013 10:25 PM PDT Exam Performed [facility] INFORMATION:Shortness of | | breath.COMPARISON:None.FINDINGS:There is a left subclavian dual lead cardiac pacer. The | | heart sizeand mediastinal contours are normal. The pulmonary vasculature isnormal. No | | focal airspace opacities, pleural effusions, orpneumothorax. Cervical fusion hardware | | is noted. No acute osseousfindings.IMPRESSION:No evidence of an acute cardiopulmonary | | process.S: SQ ([id number]) Signed by: JAYNE SPEAR MD | |COMPARISON: [...] | | | | | |S: SQ ([id number]) Signed by: JAYNE SPEAR MD | + + + +---------+ + + | Performing | Address | City/State/Zipcode | Phone Number | | Organization | | | | + +---------+ + + | [facility] | | | [phone] | + +---------+ + + | [facility] | | | [phone] | + +---------+ + + Troponin I [...] + + | [facility] | [address] | [place] [address] | | | [facility] | [...] + + | [facility] | [address] | [place] [address] | | | [facility] | [...] + + | [facility] | [address] | [place] [address] | | | HEART [facility] | | | | | LABORATORY | | | | + + + + + | [facility] | | | | | HEART [facility] | | | | | LABORATORY [...] + + | [facility]ON[facility] | [address] | [place] [address] | | | [facility] | | | | | LABORATORY | [...] + + | Glucose | 154 (H)Comment: Angolan | 65 - 99 mg/dL | [facility] | | | | Diabetes [...] + + | [facility]ON[facility] | [address] | [place] [address] | | | [facility] | | | | | LABORATORY | | | | + + + + + | [facility] | | | | | [facility] | | | | | LABORATORY | | | | + + + + + documented in this encounter Visit Diagnoses Not on filedocumented in this encounter"
--- OUTSIDE RECORDS SUMMARY | ~2019-10-04 | XMS | Encounter Summary ---
Demographics + + + | Address | [address] | | | [place] [address] | + + + | Home Phone [...] Team Providers + +------+ + | Care Concierge Manager Name | Role | Phone | [...] Refill | | 2011 | | [facility] [place] | DO [address] | | | | | [address] | [place] | | | | | [place] | [address] | | | | | [address] | | | | | | [phone] | | | +--------+--------+ + + + [...] [place], | | | | | | [place] [address] | | | | | | [phone] | | | | | | | | +--------+ + + + + | 11/20/ | Implant | Cardiology | Daljit Singletary, | Remote Device | | 2019 | Monitor | | [address] [facility] | Interrogation | | | | | [place] [place], | (Primary Dx); | | | | | [place] [address] | Presence of | | | | | [phone] | permanent cardiac | | | | [...]
--- OUTSIDE RECORDS SUMMARY | ~2019-10-04 | XMS | Encounter Summary ---
Demographics + + + | Address | [address] | | | [place] [address] | + + + | Home Phone [...] Providers + +------+ + | Care Ball Worker Name | Role | Phone | [...] [place] | | | | | [address] [place], [place] | [address] | | | | | [address] | | | | | | [phone] | | | +--------+ + + + [...] | | | | | | [place] [address] | | | | | | [phone] | | | | | | | | +--------+ + + + + | 11/20/ | Implant | Cardiology | Daljit Singletary, | Remote Device | | 2018 | Monitor | | [address] [place] | Interrogation | | | | | [place], | (Primary Dx); | | | | | [place] [address] | Presence of | | | | | [phone] | permanent cardiac | | | | [...]
--- OUTSIDE RECORDS SUMMARY | ~2019-10-04 | XMS | Encounter Summary ---
Demographics + + + | Address | [address] | | | [place] [address] | + + + | Home Phone [...] Providers + +------+ + | Care Police Superintendent Name | Role | Phone | [...] [address] | | | | | [address] | [place] | | | | | [phone] | [address] | | | | | | [phone] | | | | | | | [...] Notes by Kylah Fraser CMA at 04/11/18 6620 Author: Kylah Fraser CMA Service: (none) Author Type: Development Officer Filed: 04/19/18 1118 Encounter Date: 04/11/2018 Status: Signed Mathematical Technician: Kylah Fraser CMA (Development Officer) See telephone encounter 04/19/18. Karen pfeiffer in this encounter Plan of Treatment +--------+ + + + + | Date | Type | Specialty | Care Team | Description | +--------+ + + + + | 11/09/ | Office | Cardiology | Silvia, | | | 2019 | Visit | | PARISA [place] [address] | | | | | | [place], | | | | | | [place] [address] | | | | | | [phone] | | | | | | | | +--------+ + + + + | 11/20/ | Implant | Cardiology | Daljit Singletary, | Remote Device | | 2018 | Monitor | | MD [address] [place] | Interrogation | | | | | [place], | (Primary Dx); | | | | | [place] [address] | Presence of | | | | | [phone] | permanent cardiac | | | | [...]
--- OUTSIDE RECORDS SUMMARY | ~2019-10-04 | XMS | Encounter Summary ---
Demographics + + + | Address | [address] | | | [place] [address] | + + + | Home Phone [...] | Palpitations | [address] | | | | | Procedures | [address] | [address] [place] | | | | | ECHO | [place], | [place], [place] | | | | | Complete | [place] [address] | [address] | | | | | | Phone: | Phone: | | | | | | [phone] | [phone] | | | | | | Fax: | Fax: | | | | | | [phone] | [phone] | +--------+--------+ + + + + Reason [...] | Office | [facility] | Daljit Singletary, | Palpitations | | 2012 | Visit | CARDIOLOGY [address] | (Primary Dx); PVC | | | | [place], | [place], | (premature | | | | [place] [address] | [place] [address] | ventricular | | | | [phone] | [phone] | contraction) | | | | | [...] present himself to the emergency department at [facility] in [place], [place]. Today, patient is apprehensive of [...] tablet Take 1,000 mg by mouth Daily. Gill-3 Fatty Acids (SALMON OIL-1000 PO) CAPS, one [...] tablet Take 1,000 mg by mouth Daily. Gill-3 Fatty Acids (SALMON OIL-1000 PO) CAPS, one [...] Gay Date: December 21, 2012 : 1960 Advertising Campaign Manager: PARISA Velazquez Device Rack Puller: DoubleUptronic Sense (mV) Impedance (?) Capture (V) Capture (ms) A Lead 4-5.6 423 1.5 0.09 RV Lead >31.36 539 2.0 0.09 LV Lead Battery Impedance (?): 301 Battery Voltage (V): 2.8 TX Interval (ms): 140 AR Interval (ms): 210 VA Conduction: Mode Switch Events: N/A % of time: -RECOATING MACHINE OPERATOR: 0.6 AP-RECOATING MACHINE OPERATOR: 1.3 -VS: 23.9 AP-VS: 74.2 RECOATING MACHINE OPERATOR: Magnetic Rate: 85 LINDA: 65 [...] himself to the emerge ncy department at [facility] in [place], [place]. EKG showed normal sinus rhythm [...] I will d iscuss this option with security services specialist in [place]. 7. Followup in 2-4 weeks. Portions of this report were transcribed using voice recognition software. Every effort wa s made to ensure accuracy; however, inadvertent computerized crime prevention police officer errors may be pre sent. documented [...] | | | | | | [place] [address] | | | | | | [phone] | | | | | | | | +--------+ + + + + | 11/20/ | Implant | Cardiology | Daljit Singletary, | Remote Device | | 2019 | Monitor | | [address] [facility] | Interrogation | | | | | [place], | (Primary Dx); | | | | | [place] [address] | Presence of | | | | | [phone] | permanent cardiac | | | | [...] + | [facility] Diagnostic Imaging | [place] | | Department [address] | [facility] | | [ rep [address]] [ rep ct [facility] | | st zip] Signed | - IMAGING | | | | | Patient Name: MOE GAY | | | Physician: MIGUELINA : 1960 Age: 52 Sex: M Unit | | | #: [id number] Exam Date: 12/30/12 Location: | | | IMG Report #: [id number] Page: | | | %(RAD)RES..mtdd.print.filter("pg") of %(RAD) | | | RES..mtdd.print.filter("tpg") | | | | | | Accession Number: [id number] | | | E C H O C A R D I O G R A P H Y R E P O R T | | | HEIGHT: 76" WEIGHT: 270# | | | DIRECTOR OF CARDIOLOGY SERVICE LINE: JAMEEL REFERRING DR: TIMMY READING DR: | [...] | | | Transcribed Date/Time: 12/30/2012 16:34 Migratory Worker: | | | <<Signature on File>> | | | Daljit | | | MD Gemini [facility] FASE01/02/13 0955 <Electronically signed by | | | Daljit Singletary MD, [facility], FACP, FASE, FASNC> Rashadong | | | MD CLEOPATRA Singletary FASE 12/30/12 1608 Migratory Worker: Jessica | | | Hjcbocqligsno94/08/13 1634 MD ROSEMARY Newby | | | FASE | | + + + + + + + + | Performing | Address | City/[facility] | Phone Number | | Organization | | | | + + + + + | [facility] | [address] | [place] | [phone] | | [facility] | | [address] | | | - IMAGING | | | | + + + + + documented in this encounter Visit Diagnoses + + | Diagnosis | + + | Palpitations - Primary | + + | PVC (premature ventricular contraction) Other premature beats | + + documented in this encounter
--- OUTSIDE RECORDS SUMMARY | ~2019-10-04 | XMS | Encounter Summary ---
Demographics + + + | Address | [address] | | | [place] [address] | + + + | Home Phone [...] Providers + +------+ + | Care Conference And Event Organiser Name | Role | Phone | + +------+ + | Kirk French MD | PCP | | + +------+ + Encounter Details +--------+ + + + + | Date | Type | Department | Care Team | Description | +--------+ + + + + | 08/29/ | Hospital | [facility] | Silvia | DVT (deep venous | | 2015 | Encounter | MED [facility] ULTR[facility]OUND | PARISA [place] [address] | thrombosis), | | | | [address] [place] | [place], | bilateral (HCC) | | | | [place], [place] | [place] [address] | | | | | [address] | [phone] | | | | | [phone] | | | +--------+ + + + [...] | | | | | | | #[id number], exp 07/2016 | | | | | [...] | | | | | | [place] [address] | | | | | | [phone] | | | | | | | | +--------+ + + + + | 11/20/ | Implant | Cardiology | Daljit Singletary, | Remote Device | | 2018 | Monitor | | MD [address] [place] | Interrogation | | | | | [place], | (Primary Dx); | | | | | [place] [address] | Presence of | | | | | [phone] | permanent cardiac | | | | [...] conveyed to the ordering provider, by the hydraulic engineer, | | | immediately following the [...] to the ordering provider, by the | |hydraulic engineer, immediately following the exam. | | [...] [address] | [place] | [phone] | | [facility] | | [address] | | | - IMAGING | | | | + + + + + documented in this encounter Visit Diagnoses + + | Diagnosis | + + | DVT (deep venous thrombosis), bilateral | + + documented in this encounter"
--- OUTSIDE RECORDS SUMMARY | ~2019-10-04 | XMS | Encounter Summary ---
Demographics + + + | Address | [address] | | | [place] [address] | + + + | Home Phone [...] Team Providers + +------+ + | Care Arcade Games Mechanic Name | Role | Phone | [...] [address] | | | | | [place], | [place], | | | | | [place] [address] | [place] [address] | | | | | [phone] | [phone] | | | | | | | [...] W | | | | | | [place], | | | | | | [place] [address] | | | | | | [phone] | | | | | | | | +--------+ + + + + | 11/20/ | Implant | Cardiology | Daljit Singletary, | Remote Device | | 2018 | Monitor | | [address] [facility] | Interrogation | | | | | [place], | (Primary Dx); | | | | | [place] [address] | Presence of | | | | | [phone] | permanent cardiac | | | | [...]
--- OUTSIDE RECORDS SUMMARY | ~2019-10-04 | XMS | Encounter Summary ---
Demographics + + + | Address | [address] | | | [place] [address] | + + + | Home Phone [...] Team Providers + +------+ + | Care Inbound Call Center Representative Name | Role | Phone | [...] | | GASTROENTEROLOGY | [address], [place] | | | | | [address] | [address] [place], [place] | | | | | [address] [place], [place] | [address] | | | | | [address] | | | | | | [phone] | | | +--------+ + + + [...] | | | | | | [place] [address] | | | | | | [phone] | | | | | | | | +--------+ + + + + | 11/20/ | Implant | Cardiology | Daljit Singletary, | Remote Device | | 2019 | Monitor | | MD [address] [place] | Interrogation | | | | | [place], | (Primary Dx); | | | | | [place] [address] | Presence of | | | | | [phone] | permanent cardiac | | | | [...]
--- OUTSIDE RECORDS SUMMARY | ~2019-10-04 | XMS | Encounter Summary ---
Demographics + + + | Address | [address] | | | [place] [address] | + + + | Home Phone [...] Providers + +------+ + | Care Plastic Injection Mold Maker Name | Role | Phone | + +------+ + | Michael Amanda DO | PCP | | + +------+ + Encounter Details +--------+ + + + + | Date | Type | Department | Care Team | Description | +--------+ + + + + | 02/27/ | Hospital | [facility] | Shelly Carter DO | Chest pain; | | 2013 - | Encounter | [facility] | [address] | Pacemaker; | | | | CLINICAL DECISION | [place] [address] | Mild dehydration | | 02/28/ | | [address] [facility] | [phone] | | | 2013 | | [place], [place] | | | | | | [address] | | | | | | [phone] | | | +--------+ + + + [...] 2252 Date of Service: 02/28/141044 Status: Addendum Vacuum Conditioner Operator: Dev Montano MD (Physician) Related Notes: Original Note by Dev Montano MD (Physician) filed at 02/28/14 1107 Patient ID: Pina Gay [id number] y.o. 1960 Admit date: 02/27/2014 Discharge [...] - 99 mg/dL Final Testing performed at [address] [address] BUN Date Value Range Status 02/28/2014 15 8 - 25 mg/dL Final Testing performed at [address] [address] CREATININE Date Value Range Status 02/28/2014 0.74 0.70 - 1.30 mg/dL Final Testing performed at [address] [address] BUN/CREAT Date Value Range Status 02/28/2014 20 Final Testing performed at [address] [address] TOTAL PROTEIN Date Value Range Status 02/28/2014 6.1* 6.3 - 8.2 g/dL Final Testing performed at [address] [address] GLOBULIN Date Value Range Status 02/28/2014 2.1 1.3 - 4.9 g/dL Final Testing performed at [address] [address] TBIL Date Value Range Status 02/28/2014 1.4 0.1 - 1.5 mg/dL Final Testing performed at [address] [address] ALT Date Value Range Status 02/28/2014 27 10 - 65 U/L Final Testing performed at [address] [address] AST Date Value Range Status 02/28/2014 31 10 - 45 U/L Final Testing performed at [address] [address] SODIUM Date Value Range Status 02/28/2014 138 135 - 143 mmol/L Final Testing performed at [facility], [address] [place] [address] POTASSIUM Date Value Range Status 02/28/2014 3.4* 3.5 - 4.9 mmol/L Final Testing performed at [facility], [address] [place] [address] CHLORIDE Date Value Range Status 02/28/2014 108 99 - 109 mmol/L Final Testing performed at [address] [address] CO2 Date Value Range Status 02/28/2014 21* 23 - 32 mmol/L Final Testing performed at [facility], [address] [place] [address] ANION GAP AGAP Date Value Range Status 02/28/2014 12 5 - 20 mmol/L Final Testing performed at [facility], [address] [place] [address] Xr Chest Pa And Lateral 02/27/2014 PINA [...] 3-D reconstructi ons were performed using the Feusd 3-D software and sent to PACS. Oral Contrast: None I V contrast: 100 mL IsoVue 370 COMPARISON: None. FINDINGS: CHEST: The account resolution expert view shows a p acemaker via left [...] pacemaker, who came [facility] yesterday complaining of chest pain which started [...] catheterization recently done by Dr. Singletary in [place] in December 2013 at [facility] which showed minimal occlusive disease. One artery was 25% and another was 15%, per patient. I requested official cardiac catheterization report from [place] and still waiting for it to come. 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 You may get these medications from any pharmacy. amLODIPine 5 MG tablet pantoprazole 40 MG tablet Activity: activity as tolerated Diet: cardiac diet Wound Care: not applicable There are no Patient Instructions on file for this visit. Per Pt None Chaka Ortiz MD [address] [facility] [id number] In 1 week Ariel Pulido MD [address] [facility] [id number] In 1 week Daljit Singletary MD [address] [facility] [address] [facility] [address] In 1 week Signed: DEV MONTANO 02/28/2014 10:45 AM Addendum:ADDENDUM I just received a cardiac catheterization report from [facility], [place], which was done on December 25, 2013. [...] + + + +---------+ + + | Odin-3 Fatty | CAPS, one capsule by | [...] from the original. Nurse Progress Note by Bijla Sosa RN at 02/28/141210 Author: Bijal Sosa RN Service: (none) Author Type: Registered Nurse Filed: 02/28/141211 Date of Service: 02/28/141210 Status: Signed Vacuum Conditioner Operator: Bijal Sosa RN (Registered Nurse) Discharge [...] 02/28/1411 Date of Service: 02/28/1411 Status: Signed Vacuum Conditioner Operator: Mary Wetzel RPH (Pharmacist) Clinical Pharmacy [...] | | | | | | [place] [address] | | | | | | [phone] | | | | | | | | +--------+ + + + + | 11/20/ | Implant | Cardiology | Daljit Singletary, | Remote Device | | 2018 | Monitor | | MD [facility] [place] [facility] | Interrogation | | | | | [facility], | (Primary Dx); | | | | | [place] [address] | Presence of | | | | | [phone] | permanent cardiac | | | | [...] | | | | performed at [facility];[address] | | LAB | | | | [address];[place], [place] | | | | | | [address] | | | | + + + [...] | | | | | | ACUTE DC Testing | | | | | | performed at [facility];[address] | | | | | | [facility];[place], [place] | | | | | | [address] | | | | + + + [...] | | | | | [place] [address] | | | | + + + + + + | RED CELL | 4.68Comment: Testing | 4.20 - 5.70 | EXTERNAL | | | COUNT | performed at [facility], [address] | M/uL | LAB | | | | [address], | | | | | | [place] [address] | | | | + + + + + + | Hgb | 15.3Comment: Testing | 13.2 - 17.0 | EXTERNAL | | | | performed at [facility], [address] | g/dL | LAB | | | | [address], | | | | | | [place] [address] | | | | + + + + + + | Hematocrit, | 44.2Comment: Testing | 39.0 - 50.0 % | EXTERNAL | | | POC | performed at [facility], [address] | | LAB | | | | [address], | | | | | | [place] [address] | | | | + + + + + + | MCV | 94.5Comment: Testing | 80.0 - 100.0 fl | EXTERNAL | | | | performed at [facility], [address] | | LAB | | | | [address], | | | | | | [place] [address] | | | | + + + + + + | MCH | 32.6Comment: Testing | 27.0 - 34.0 pg | EXTERNAL | | | | performed at [facility], [address] | | LAB | | | | [address], | | | | | | [place] [address] | | | | + + + + + + | MCHC | 34.5Comment: Testing | 32.0 - 35.5 | EXTERNAL | | | | performed at [facility], [address] | g/dL | LAB | | | | [address], | | | | | | [place] [address] | | | | + + + + + + | RDW-CV | 45.5Comment: Testing | 37 - 53 fl | EXTERNAL | | | | performed at [facility], [address] | | LAB | | | | [address], | | | | | | [place] [address] | | | | + + + + + + | Platelet | 156Comment: Testing | 150 - 400 K/uL | EXTERNAL | | | Count | performed at [facility], [address] | | LAB | | | Plasma | [address], | | | | | | [place] [address] | | | | + + + + + + | MPV | 8.8Comment: Testing | fl | EXTERNAL | | | | performed at [facility], [address] | | LAB | | | | [address], | | | | | | [place] [address] | | | | + + + + + + | Differentia | AUTOMATEDComment: | | EXTERNAL | | | l Type | Testing performed at | | LAB | | | | [facility], [address] | | | | | | [place] | | | | | | [address] | | | | + + + + + + | % Segmented | 57.7Comment: Testing | % | EXTERNAL | | | | performed at [facility], [address] | | LAB | | | Neutrophils | [address], | | | | | | [place] [address] | | | | + + + + + + | % | 31.8Comment: Testing | % | EXTERNAL | | | Lymphocytes | performed at [facility], [address] | | LAB | | | | [address], | | | | | | [place] [address] | | | | + + + + + + | % Monocytes | 9.2Comment: Testing | % | EXTERNAL | | | | performed at [facility], [address] | | LAB | | | | [address], | | | | | | [place] [address] | | | | + + + + + + | % | 0.9Comment: Testing | % | EXTERNAL | | | Eosinophils | performed at [facility], [address] | | LAB | | | | [address], | | | | | | [place] [address] | | | | + + + + + + | % Basophils | 0.4Comment: Testing | % | EXTERNAL | | | | performed at [facility], [address] | | LAB | | | | [address], | | | | | | [place] [address] | | | | + + + + + + | Absolute | 3.9Comment: Testing | 1.9 - 7.4 K/uL | EXTERNAL | | | Segmented | performed at [facility], [address] | | LAB | | | Neutrophils | [address], | | | | | | [place] [address] | | | | + + + + + + | Absolute | 2.1Comment: Testing | 1.0 - 3.9 K/uL | EXTERNAL | | | Lymphocytes | performed at [facility], [address] | | LAB | | | | [address], | | | | | | [place] [address] | | | | + + + + + + | Absolute | 0.6Comment: Testing | 0 - 0.8 K/uL | EXTERNAL | | | Monocytes | performed at [facility], [address] | | LAB | | | | [address], | | | | | | [place] [address] | | | | + + + + + + | Absolute | 0.1Comment: Testing | 0 - 0.5 K/uL | EXTERNAL | | | Eosinophils | performed at [facility], [address] | | LAB | | | | [address], | | | | | | [place] [address] | | | | + + + + + + | Absolute | 0.0Comment: Testing | 0 - 0.1 K/uL | EXTERNAL | | | Basophils | performed at [facility], [address] | | LAB | | | | [address], | | | | | | [place] [address] | | | | + + + [...] | | | | | [place] [address] | | | | + + + [...] EXTERNAL | | | | performed at [facility], [address] | | LAB | | | | [address], | | | | | | [place] [address] | | | | + + + [...] | | | | performed at [facility];[address] | | LAB | | | | [address];[place] | | | | | | [address] | | | | + + + [...] | | | | | [place] [address] | | | | + + + + + + | Triglycerid | 37Comment: Testing | mg/dL | EXTERNAL | | | es | performed at [facility], [address] | | LAB | | | | [address], | | | | | | [place] [address] | | | | + + + + + + | HDL | 35 (L)Comment: Testing | mg/dL | EXTERNAL | | | | performed at [facility], [address] | | LAB | | | | [address], | | | | | | [place] [address] | | | | + + + + + + | LDL | 67Comment: Testing | mg/dL | EXTERNAL | | | Cholesterol | performed at [facility], [address] | | LAB | | | , | [address], | | | | | Calculated, | [place] [address] | | | | | External | [...] | | | | | [place] [address] | | | | + + + + + + | K | 3.4 (L)Comment: Testing | 3.5 - 4.9 | EXTERNAL | | | | performed at [facility], [address] | mmol/L | LAB | | | | [address], | | | | | | [place] [address] | | | | + + + + + + | Cl | 108Comment: Testing | 99 - 109 mmol/L | EXTERNAL | | | | performed at [facility], [address] | | LAB | | | | [address], | | | | | | [place] [address] | | | | + + + + + + | CO2 | 21 (L)Comment: Testing | 23 - 32 mmol/L | EXTERNAL | | | | performed at [facility], [address] | | LAB | | | | [address], | | | | | | [place] [address] | | | | + + + + + + | Anion Gap | 12Comment: Testing | 5 - 20 mmol/L | EXTERNAL | | | | performed at [facility], [address] | | LAB | | | | [address], | | | | | | [place] [address] | | | | + + + + + + | Glucose, | 107 (H)Comment: Testing | 65 - 99 mg/dL | EXTERNAL | | | Fasting | performed at [facility], [address] | | LAB | | | | [address], | | | | | | [place] [address] | | | | + + + + + + | BUN | 15Comment: Testing | 8 - 25 mg/dL | EXTERNAL | | | | performed at [facility], [address] | | LAB | | | | [address], | | | | | | [place] [address] | | | | + + + + + + | Creatinine | 0.74Comment: Testing | 0.70 - 1.30 | EXTERNAL | | | | performed at [facility], [address] | mg/dL | LAB | | | | [address], | | | | | | [place] [address] | | | | + + + + + + | BUN/Creatin | 20Comment: Testing | | EXTERNAL | | | ine Ratio | performed at [facility], [address] | | LAB | | | | [address], | | | | | | [place] [address] | | | | + + + + + + | Calcium | 8.9Comment: Testing | 8.5 - 10.2 | EXTERNAL | | | | performed at [facility], [address] | mg/dL | LAB | | | | [address], | | | | | | [place] [address] | | | | + + + + + + | Protein, | 6.1 (L)Comment: Testing | 6.3 - 8.2 g/dL | EXTERNAL | | | Total | performed at [facility], [address] | | LAB | | | | [address], | | | | | | [place] [address] | | | | + + + + + + | Albumin | 4.0Comment: Testing | 3.6 - 5.0 g/dL | EXTERNAL | | | | performed at [facility], [address] | | LAB | | | [address], | | | | | | [place] [address] | | | | + + + + + + | Globulin | 2.1Comment: Testing | 1.3 - 4.9 g/dL | EXTERNAL | | | | performed at [facility], [address] | | LAB | | | | [address], | | | | | | [place] [address] | | | | + + + + + + | A/G Ratio | 1.9Comment: Testing | 1.0 - 2.4 | EXTERNAL | | | | performed at [facility], [address] | | LAB | | | | [address], | | | | | | [place] [address] | | | | + + + + + + | Bilirubin | 1.4Comment: Testing | 0.1 - 1.5 mg/dL | EXTERNAL | | | Total | performed at [facility], [address] | | LAB | | | | [address], | | | | | | [place] [address] | | | | + + + + + + | ALP, | 46Comment: Testing | 35 - 115 U/L | EXTERNAL | | | External | performed at [facility], [address] | | LAB | | | | [address], | | | | | | [place] [address] | | | | + + + + + + | AST | 31Comment: Testing | 10 - 45 U/L | EXTERNAL | | | | performed at [facility], [address] | | LAB | | | | [address], | | | | | | [place] [address] | | | | + + + + + + | ALT | 27Comment: Testing | 10 - 65 U/L | EXTERNAL | | | | performed at [facility], [address] | | LAB | | | | [address], | | | | | | [place] [address] | | | | + + + [...] | | | | | | at [facility], [address] | | | | | | [address], | | | | | | [place] [address] | | | | + + + [...] | | | | performed at [facility];[address] | | LAB | | | | [address];[place], [place] | | | | | | [address] | | | | + + + [...] | | | | | | ACUTE DC Testing | | | | | | performed at [facility] | | | | | | [facility];[place], [place] | | | | | | [address] | | | | + + + [...] | | | | performed at [facility];[address] | | LAB | | | | [facility];[place], [place] | | | | | | [address] | | | | + + + [...] were | | | performed using the Feusd 3-D software and sent to PACS. Oral | | | Contrast: None IV contrast: 100 mL IsoVue 370 COMPARISON: None. | | | FINDINGS: CHEST: The account resolution expert view shows a pacemaker via left | [...] reconstructions were performed | | using the Feusd 3-D software and sent to PACS. Oral Contrast: NoneIV contrast: 100 | | mL IsoVue 370 COMPARISON:None. FINDINGS: CHEST: The account resolution expert view shows a pacemaker via | | [...] | | | | performed at [facility];[address] | | LAB | | | | [address];[place] | | | | | | [address] | | | | + + + + + -+ | RED CELL | 5.19Comment: Testing | 4.20 - 5.70 | EXTERNAL | | | COUNT | performed at [facility];[address] | M/uL | LAB | | | | [address];[place] | | | | | | [address] | | | | + + + + + -+ | Hgb | 16.8Comment: Testing | 13.2 - 17.0 | EXTERNAL | | | | performed at [facility];[address] | g/dL | LAB | | | | [address];[place] | | | | | | [address] | | | | + + + + + -+ | Hematocrit, | 49.5Comment: Testing | 39.0 - 50.0 % | EXTERNAL | | | POC | performed at [facility];[address] | | LAB | | | | [address];[place] | | | | | | [address] | | | | + + + + + -+ | MCV | 95.4Comment: Testing | 80.0 - 100.0 fl | EXTERNAL | | | | performed at [facility];[address] | | LAB | | | | [address];[place] | | | | | | [address] | | | | + + + + + -+ | MCH | 32.4Comment: Testing | 27.0 - 34.0 pg | EXTERNAL | | | | performed at [facility];[address] | | LAB | | | | [address];[place] | | | | | | [address] | | | | + + + + + -+ | MCHC | 34.0Comment: Testing | 32.0 - 35.5 | EXTERNAL | | | | performed at [facility];[address] | g/dL | LAB | | | | [address];[place] | | | | | | [address] | | | | + + + + + -+ | RDW-CV | 46.8Comment: Testing | 37 - 53 fl | EXTERNAL | | | | performed at [facility];[address] | | LAB | | | | [address];[place] | | | | | | [address] | | | | + + + + + -+ | Platelet | 179Comment: Testing | 150 - 400 K/uL | EXTERNAL | | | Count | performed at [facility];[address] | | LAB | | | Plasma | [address];[place] | | | | | | [address] | | | | + + + + + -+ | MPV | 8.6Comment: Testing | fl | EXTERNAL | | | | performed at [facility];[address] | | LAB | | | | [address];[place] | | | | | | [address] | | | | + + + + + -+ | Differentia | AUTOMATEDComment: | | EXTERNAL | | | l Type | Testing performed at | | LAB | | | | [facility];[address];[place] [address] | | | | + + + + + -+ | % Segmented | 62.4Comment: Testing | % | EXTERNAL | | | | performed at [facility];[address] | | LAB | | | Neutrophils | [address];[place] | | | | | | [address] | | | | + + + + + -+ | % | 26.3Comment: Testing | % | EXTERNAL | | | Lymphocytes | performed at [facility];[address] | | LAB | | | | [address];[place] | | | | | | [address] | | | | + + + + + -+ | % Monocytes | 10.3Comment: Testing | % | EXTERNAL | | | | performed at [facility];[address] | | LAB | | | | [address];[place] | | | | | | [address] | | | | + + + + + -+ | % | 0.5Comment: Testing | % | EXTERNAL | | | Eosinophils | performed at [facility];[address] | | LAB | | | | [address];[place] | | | | | | [address] | | | | + + + + + -+ | % Basophils | 0.5Comment: Testing | % | EXTERNAL | | | | performed at [facility];[address] | | LAB | | | | [address];[place] | | | | | | [address] | | | | + + + + + -+ | Absolute | 6.3Comment: Testing | 1.9 - 7.4 K/uL | EXTERNAL | | | Segmented | performed at [facility];[address] | | LAB | | | Neutrophils | [address];[place] | | | | | | [address] | | | | + + + + + -+ | Absolute | 2.7Comment: Testing | 1.0 - 3.9 K/uL | EXTERNAL | | | Lymphocytes | performed at [facility];[address] | | LAB | | | | [address];[place] | | | | | | [address] | | | | + + + + + -+ | Absolute | 1.0 (H)Comment: Testing | 0 - 0.8 K/uL | EXTERNAL | | | Monocytes | performed at [facility];[address] | | LAB | | | | [address];[place] | | | | | | [address] | | | | + + + + + -+ | Absolute | 0.0Comment: Testing | 0 - 0.5 K/uL | EXTERNAL | | | Eosinophils | performed at [facility];[address] | | LAB | | | | [address];[place] | | | | | | [address] | | | | + + + + + -+ | Absolute | 0.1Comment: Testing | 0 - 0.1 K/uL | EXTERNAL | | | Basophils | performed at [facility];[address] | | LAB | | | | [address];[place] | | | | | | [address] | | | | + + + + + -+ | Na | 139Comment: Testing | 135 - 143 | EXTERNAL | | | | performed at [facility];[address] | mmol/L | LAB | | | | [address];[place] | | | | | | [address] | | | | + + + + + -+ | K | 3.4 (L)Comment: Testing | 3.5 - 4.9 | EXTERNAL | | | | performed at [facility];[address] | mmol/L | LAB | | | | [address];[place] | | | | | | [address] | | | | + + + + + -+ | Cl | 108Comment: Testing | 99 - 109 mmol/L | EXTERNAL | | | | performed at [facility];[address] | | LAB | | | | [address];[place] | | | | | | [address] | | | | + + + + + -+ | CO2 | 21 (L)Comment: Testing | 23 - 32 mmol/L | EXTERNAL | | | | performed at [facility];[address] | | LAB | | | | [address];[place] | | | | | | [address] | | | | + + + + + -+ | Anion Gap | 14Comment: Testing | 5 - 20 mmol/L | EXTERNAL | | | | performed at [facility];[address] | | LAB | | | | [address];[place] | | | | | | [address] | | | | + + + + + -+ | Glucose, | 124 (H)Comment: Testing | 65 - 99 mg/dL | EXTERNAL | | | Fasting | performed at [facility];[address] | | LAB | | | | [address];[place] | | | | | | [address] | | | | + + + + + -+ | BUN | 20Comment: Testing | 8 - 25 mg/dL | EXTERNAL | | | | performed at [facility];[address] | | LAB | | | | [address];[place] | | | | | | [address] | | | | + + + + + -+ | Creatinine | 0.97Comment: Testing | 0.70 - 1.30 | EXTERNAL | | | | performed at [facility];[address] | mg/dL | LAB | | | | [address];[place] | | | | | | [address] | | | | + + + + + -+ | BUN/Creatin | 21Comment: Testing | | EXTERNAL | | | ine Ratio | performed at [facility];[address] | | LAB | | | | [address];[place] | | | | | | [address] | | | | + + + + + -+ | Calcium | 8.7Comment: Testing | 8.5 - 10.2 | EXTERNAL | | | | performed at [facility];[address] | mg/dL | LAB | | | | [address];[place] | | | | | | [address] | | | | + + + + + -+ | Protein, | 7.6Comment: Testing | 6.3 - 8.2 g/dL | EXTERNAL | | | Total | performed at [facility];[address] | | LAB | | | | [address];[place] | | | | | | [address] | | | | + + + + + -+ | Albumin | 4.2Comment: Testing | 3.6 - 5.0 g/dL | EXTERNAL | | | | performed at [facility];[address] | | LAB | | | | [address];[place] | | | | | | [address] | | | | + + + + + -+ | Globulin | 3.4Comment: Testing | 1.3 - 4.9 g/dL | EXTERNAL | | | | performed at [facility];[address] | | LAB | | | | [address];[place] | | | | | | [address] | | | | + + + + + -+ | A/G Ratio | 1.2Comment: Testing | 1.0 - 2.4 | EXTERNAL | | | | performed at [facility];[address] | | LAB | | | | [address];[place] | | | | | | [address] | | | | + + + + + -+ | Bilirubin | 1.1Comment: Testing | 0.1 - 1.5 mg/dL | EXTERNAL | | | Total | performed at [facility];[address] | | LAB | | | | [address];[place] | | | | | | [address] | | | | + + + + + -+ | ALP, | 77Comment: Testing | 35 - 115 U/L | EXTERNAL | | | External | performed at [facility];[address] | | LAB | | | | [address];[place] | | | | | | [id number] | | | | + + + + + -+ | AST | 35Comment: Testing | 10 - 45 U/L | EXTERNAL | | | | performed at [facility];[address] | | LAB | | | | [address];[place] | | | | | | [address] | | | | + + + + + -+ | ALT | 43Comment: Testing | 10 - 65 U/L | EXTERNAL | | | | performed at [facility];[address] | | LAB | | | | [address];[place] | | | | | | [address] | | | | + + + [...] | | | | | at [facility];[address] | | | | | [address];[place] [address] | | | | + + + + + -+ | CK, Total | 510 (H)Comment: Testing | 55 - 400 U/L | EXTERNAL | | | | performed at [facility];[address] | | LAB | | | [address];[place] | | | | | | [address] | | | | + + + [...] | | | | performed at [facility];[address] | | | | | [address];[place] | | | | | | [address] | | | | + + + + + -+ | aPTT, | 24Comment: Testing | 23 - 32 seconds | EXTERNAL | | | Patient | performed at [facility];[address] | | LAB | | | [address];[place] | | | | | | [address] | | | | + + + + + -+ | CK-MB | 9.3 (H)Comment: Testing | 0.5 - 3.6 ng/mL | EXTERNAL | | | | performed at [facility];[address] | | LAB | | | | [facility];[place], [place] | | | | | | [address] | | | | + + + [...] | | | | performed at [facility];[address] | uIU/mL | LAB | | | | [address];[place] | | | | | | [address] | | | | + + + [...] | | | | performed at [facility];[address] | | LAB | | | | [address];[place], [place] | | | | | | [address] | | | | + + + [...]
--- OUTSIDE RECORDS SUMMARY | ~2019-10-04 | XMS | Encounter Summary ---
Demographics + + + | Address | [address] | | | [place] [address] | + + + | Home Phone [...] Team Providers + +------+ + | Care Sketcher Name | Role | Phone | + [...] | CARDIOLOGY [address] | [address] | card ) | | | | [address], | [place], | | | | | [place] [address] | [place] [address] | | | | | [phone] | [phone] | | | | | | | [...] W | | | | | | [place], | | | | | | [place] [address] | | | | | | [phone] | | | | | | | | +--------+ + + + + | 11/20/ | Implant | Cardiology | Daljit Singletary, | Remote Device | | 2018 | Monitor | | [facility] | Interrogation | | | | | [place], | (Primary Dx); | | | | | [place] [address] | Presence of | | | | | [phone] | permanent cardiac | | | | [...]
--- OUTSIDE RECORDS SUMMARY | ~2019-10-04 | XMS | Encounter Summary ---
Demographics + + + | Address | [address] | | | [place] [address] | + + + | Home Phone [...] Providers + +------+ + | Care Stem Roller Or Crusher Operator Name | Role | Phone [...] | | | | | PVCs | PARI[place] | [address] | | | | | Procedures | [address] | [address] | | | | | [place] OFFICE | [place] | [place] | | | | | CONSULTATION | [place], | [address] Phone: | | | | | NEW/ESTAB | [place] | [phone] | | | | | PATIENT 40 | [address] | Fax: | | | | | MIN | Phone: | [phone] | | | | | | [phone] | | | | | | | Fax: | | | | | | | [phone] | | +--------+--------+ + + + + Encounter Details +--------+---------+ + + + | Date | Type | Department | Care Team | Description | +--------+---------+ + + + | 11/30/ | Office | [facility] | Jay Gambino MD | Symptomatic PVCs | | 2015 | Visit | [place]ARDIOLOGY [place] | [address] | (Primary Dx) | | | | HI[address] | [address] [place], | | | | | [facility] [address] [place] | [place] [address] | | | | | [address] | [phone] | | | | | [phone] | | | +--------+---------+ + + + [...] Gambino MD - 11/30/2014 5:37 PM PST [facility] [address] [place] [address] Patient Name: Moe Sanchez Date: 1960 Date [...] luz marcos as needed for Chest pain. [place]-3 Fatty Acids (SALMON OIL-1000 PO) CAPS, one [...] (1980 1984); Hypoglycemia; Drug addiction in remission ([facility]); HTN (hypertension); Hypercholesterolemia; Bipolar 1 [...] were not detected in the editing p [place]yt[place]. Should you have any questions or concerns, [...] W | | | | | | [place], | | | | | | [place] [address] | | | | | | [phone] | | | | | | | | +--------+ + + + + | 11/20/ | Implant | Cardiology | Daljit Singletary, | Remote Device | | 2018 | Monitor | | MD [address] | Interrogation | | | | | [place], | (Primary Dx); | | | | | [place] [address] | Presence of | | | | | [phone] | permanent cardiac | | | | [...]
--- OUTSIDE RECORDS SUMMARY | ~2019-10-04 | XMS | Encounter Summary ---
Demographics + + + | Address | [address] | | | [place] [address] | + + + | Home Phone [...] Team Providers + +------+ + | Care Presto Log Operator Name | Role | Phone | [...] Provider Unknown | | | | | [place], [place] | [phone] | | | | | [address] | | | | | | [phone] | | | +--------+ + + + [...] | | | | | | [place], | | | | | | [place] [address] | | | | | | [phone] | | | | | | | | +--------+ + + + + | 11/20/ | Implant | Cardiology | Daljit Singletary, | Remote Device | | 2018 | Monitor | | MD [place] | Interrogation | | | | | [place], | (Primary Dx); | | | | | [place] [address] | Presence of | | | | | [phone] | permanent cardiac | | | | [...]
--- OUTSIDE RECORDS SUMMARY | ~2019-10-04 | XMS | Encounter Summary ---
Demographics + + + | Address | [address] | | | [place] [address] | + + + | Home Phone [...] Providers + +------+ + | Care Welder Setter Electron Beam Machine Name | Role | Phone | [...] + + | 12/29/ | Office | [facility] | [place], | Ascending thoracic | | 2017 | Visit | CARDIOLOGY [address] | PAR[place] [address] | aortic aneurysm | | | | [place], | [place], | (HCC) (Primary Dx); | | | | [place] [address] | [place] [address] | Coronary artery | | | | [phone] | [phone] | disease involving | | | | | | ewiiaapaayp coronary | | | | | | artery of ewiiaapaayp | | | | | | heart [...] of non-critical coronary artery d isease involving ewiiaapaayp coronary artery of ewiiaapaayp heart without angina pectoris, essential h ypertension, [...] start Losartan 25 mg once every day, [facility] blood pressure log, and follow up in 3 months. Since that time, he went to the ER in [facility] with chest pain at the end [...] Preventative health care Coronary artery disease involving ewiiaapaayp coronary artery of ewiiaapaayp heart without angina pectoris Cannabis abuse, daily [...] 3RD DOSE, CALL 911 100 tablet 3 [place]-3 Fatty Acids (SALMON OIL-1000 PO) CAPS, one [...] was found Confirmed by SYDNI SINGLETARY MD ([id number]) on 06/23/2016 2:08:15 PM LAB RESULTS reviewed [...] PLTEX 129* 05/12/2016 I reviewed records from [facility] for office visit on 09/01/2016 which is [...] He is in class I of the [place] Heart Ass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 On physical examination there are no signs of fl uid overload. 2. Non-critical Coronary artery disease involving ewiiaapaayp coronary a rtery of ewiiaapaayp heart without angina pectoris: A. Normal exercise [...] to go back in 3 days to [place] for an attempt of ablation under general [...] is a normal stable device function. Estimated [employer] ng battery longevity is 5 years.. 5. [...] this chart may have been created with Zen[employer] voice recognition software. Occasi onal wrong-word or [...] W | | | | | | [place], | | | | | | [place] [address] | | | | | | [phone] | | | | | | | | +--------+ + + + + | 11/20/ | Implant | Cardiology | Sydni Singletary, | Remote Device | | 2019 | Monitor | | MD [address] | Interrogation | | | | | [place], | (Primary Dx); | | | | | [place] [address] | Presence of | | | | | [phone] | permanent cardiac | | | | [...] ewiiaapaayp heart without | | angina pectoris | + + | Essential hypertension with goal blood pressure less than 130/80 | + + | Hyperlipidemia, mixed Mixed hyperlipidemia | + + documented in this encounter
--- OUTSIDE RECORDS SUMMARY | ~2019-10-04 | XMS | Encounter Summary ---
Demographics + + + | Address | [address] | | | [place] [address] | + + + | Home Phone [...] Providers + +------+ + | Care Manager It Security Name | Role | Phone | + [...] | | | | CENTER [address] | [address] [place] | | | | | [place], [place] | [place] [address] | | | | | [address] | [phone] | | | | | [phone] | | | +--------+ + + + [...] sent through Care Everywhere.Diarrhea, Unkno wn Cause (Belarusian)documented in this encounter Medications at Time of [...] + + + +---------+ + + | [place]-3 Fatty | CAPS, one capsule by | [...] | | | | | | | walk[place] coronary | | | | | | | artery of [place] | | | | | | | [...] | | | | | | [place], | | | | | | [place] [address] | | | | | | [phone] | | | | | | | | +--------+ + + + + | 11/20/ | Implant | Cardiology | Daljit Singletary, | Remote Device | | 2018 | Monitor | | [address] [place] | Interrogation | | | | | [place], | (Primary Dx); | | | | | [place] [address] | Presence of | | | | | [phone] | permanent cardiac | | | | [...] W?MRN: | | | | | | [id number] | | | [id number] | | | riteri | | | [...] | | | St. | | | [place] | | | y | | | [...] | | | St. | | | [place] | | | y | | | [...] | | | St. | | | [place] | | | y H. | | [...] | | | St. | | | [place] | | | y H. | | [...] | | | M.D. | | | Dowel Pin Man | | | al | | | [...] | | | ent/60 | | | [id number] | | | -5586- | | | [...] | | | Lavender | | | [facility] | | | Top [...] [address] | [place] | [phone] | | [facility] | | [address] | | | - LABORATORY | | [...] [address] | [place] | [phone] | | [facility] | | [address] | | | - LABORATORY | | [...] + | [facility] | [address] | [place] | [phone] | | [facility] | | [address] | | | - LABORATORY | | [...] + | [facility] | [address] | [place] | [phone] | | [facility] | | [address] | | | - LABORATORY | | [...] [address] | [place] | [phone] | | [facility] | | [address] | | | - LABORATORY | | [...] 10 | 9 - 23 mg/dL | [facility] | | | | | | [facility] | | | | | MEDICAL | | | | | | CENTER - | | | | | | LABORATORY | | + + + + + + | Creatinine | 0.96 | 0.70 - 1.30 | [facility] | | | | | mg/dL | [facility] | | | | | | MEDICAL | | | | | | CENTER - | | | | | | LABORATORY | | + + + + + + | eGFR if not | >60Comment: GLOMERULAR | >=60 | [facility] | | | | FILTRATION | mL/min/1.73m2 | [facility] | | | MALDIVIAN | RATE,ESTIMATED | | MEDICAL | | | | mL/min/1.54k3Enmu than | | CENTER - | | [...] [address] | [place] | [phone] | | [facility] | | [address] | | | - LABORATORY | | [...] nRBC | | K/uL | [facility] | | | | | | [...] [address] | [place] | [phone] | | [facility] | | [address] | | | - LABORATORY | | [...] - 1.030 | [facility] | | | [place] | | | [facility]. [facility] | | [...] ST. | [address] | [place], [place] | [phone] | | [facility] | | [address] | | | - LABORATORY | | [...]
--- OUTSIDE RECORDS SUMMARY | ~2019-10-04 | XMS | Encounter Summary ---
Demographics + + + | Address | [address] | | | [place] [address] | + + + | Home Phone [...] Providers + +------+ + | Care Pediatric Physician Assistant Name | Role | Phone [...] 2012 | | CARDIOLOGY [address] | HOB GRINDER [address] | faxed) | | | | [place], | [place] [facility], [place] | | | | | [place] [address] | [address] | | | | | [phone] | | | +--------+ + + + [...] W | | | | | | [place], | | | | | | [place] [address] | | | | | | [phone] | | | | | | | | +--------+ + + + + | 11/20/ | Implant | Cardiology | Daljit Singletary, | Remote Device | | 2018 | Monitor | | [facility] | Interrogation | | | | | [place], | (Primary Dx); | | | | | [place] [address] | Presence of | | | | | [phone] | permanent cardiac | | | | [...]
--- OUTSIDE RECORDS SUMMARY | ~2019-10-04 | XMS | Encounter Summary ---
Demographics + + + | Address | [address] | | | [place] [address] | + + + | Home Phone [...] Providers + +------+ + | Care Envelope Machine Operator Name | Role | Phone | + +------+ + PCP | Unavailable | + +------+ + Encounter Details +--------+ + + + + | Date | Type | Department | Care Team | Description | +--------+ + + + + | 12/01/ | Hospital | [facility] | | | | 1997 | Encounter | MED CTR EMERGENCY | | | | | | CENTER [address] | | | | | | [place] | | | | | | [address] | | | | | | [phone] | | | +--------+ + + + [...] | | | | | | [place] [address] | | | | | | [phone] | | | | | | | | +--------+ + + + + | 11/20/ | Implant | Cardiology | Daljit Singletary, | Remote Device | | 2018 | Monitor | | [facility] | Interrogation | | | | | [place], | (Primary Dx); | | | | | [place] [address] | Presence of | | | | | [phone] | permanent cardiac | | | | [...]
--- OUTSIDE RECORDS SUMMARY | ~2019-10-04 | XMS | Encounter Summary ---
Demographics + + + | Address | [address] | | | [place] [address] | + + + | Home Phone [...] Providers + +------+ + | Care Mold Parter Name | Role | Phone | + [...] | | CARDIOLOGY [address] | [address] [place] | | | | | [place], | [place], | | | | | [place] [address] | [place] [address] | | | | | [phone] | [phone] | | | | | | | [...] | | | | | | [place] [address] | | | | | | [phone] | | | | | | | | +--------+ + + + + | 11/20/ | Implant | Cardiology | Daljit Singletary, | Remote Device | | 2019 | Monitor | | [facility] | Interrogation | | | | | [place], | (Primary Dx); | | | | | [place] [address] | Presence of | | | | | [phone] | permanent cardiac | | | | [...] + | [facility] | [address] | [place] | [phone] | | [facility] | | [address] | | | - LABORATORY | | | | + + + + + | [facility] | [address] [place] | [place] | | | [facility] | | [address] | | | - LABORATORY | | [...] [place] | | | | | [facility] | | | | | - LABORATORY | | | | + +---------+ + + documented in this encounter Visit Diagnoses Not on filedocumented in this encounter"
--- OUTSIDE RECORDS SUMMARY | ~2019-10-04 | XMS | Encounter Summary ---
Demographics + + + | Address | [address] | | | [place] [address] | + + + | Home Phone [...] Providers + +------+ + | Care Inspector Poising Name | Role | Phone | + [...] + + | 04/24/ | Office | [facility] | [place]via, | Symptomatic PVCs | | 2012 | Visit | CARDIOLOGY [address] | [place] [address] | (Primary Dx); CAD; | | | | [place], | [place], | Hyperlipidemia; | | | | [place] [address] | [place] [address] | PACEMAKER, PERMANENT | | | | [phone] | [phone] | - [employer] | | | | [...] tablet by mouth Daily. 30 tablet 6 [place]-3 Fatty Acids (SALMON OIL-1000 PO) CAPS, one [...] records from PCP and notes from [facility]. Assessment: 1. Symptomatic PVCs status post ablation: [...] to go back in 3 days to [place] for an attempt of ablation under general [...] He is upgraded to class I of [place] Heart Ass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 There are no [...] made to ensure accuracy; however, inadvertent computerized bmw sales consultant errors may be pre sent. documented in this encounter Plan of Treatment +--------+ + + + + | Date | Type | Specialty | Care Team | Description | +--------+ + + + + | 11/09/ | Office | Cardiology | Silvia, | | | 2018 | Visit | | PARISA [place] W | | | | | | [place], | | | | | | [place] [address] | | | | | | [phone] | | | | | | | | +--------+ + + + + | 11/20/ | Implant | Cardiology | Daljit Singletary, | Remote Device | | 2018 | Monitor | | MD [facility] | Interrogation | | | | | [place], | (Primary Dx); | | | | | [place] [address] | Presence of | | | | | [phone] | permanent cardiac | | | | [...] Coronary atherosclerosis of unspecified type of vessel, [place] or graft | + + | Hyperlipidemia Other and unspecified hyperlipidemia | + + | PACEMAKER, PERMANENT - [employer] 06/14/09GRANT Cardiac pacemaker in situ | + + documented in this encounter
--- OUTSIDE RECORDS SUMMARY | ~2019-10-04 | XMS | Encounter Summary ---
Demographics + + + | Address | [address] | | | [place] [address] | + + + | Home Phone [...] Team Providers + +------+ + | Care Shaker Plate Operator Name | Role | Phone | [...] 2017 | | CARDIOLOGY [address] | EMPLOYEE SERVICE OFFICER [address] [place] | | | | | [place], | [place], [place] | | | | | [place] [address] | [address] | | | | | [phone] | | | +--------+--------+ + + + [...] | | | | | | [place], | | | | | | [place] [address] | | | | | | [phone] | | | | | | | | +--------+ + + + + | 11/20/ | Implant | Cardiology | Daljit Singletary, | Remote Device | | 2018 | Monitor | | [address] | Interrogation | | | | | [place], | (Primary Dx); | | | | | [place] [address] | Presence of | | | | | [phone] | permanent cardiac | | | | [...]
--- OUTSIDE RECORDS SUMMARY | ~2019-10-04 | XMS | Encounter Summary ---
Demographics + + + | Address | [address] | | | [place] [address] | + + + | Home Phone [...] Providers + +------+ + | Care Manager Revenue Name | Role | Phone | + [...] | 06/17/ | Telephone | [facility] [place] | [place], | Lab Order (due for | | 2015 | | CARDIOLOGY [address] | [place] [address] | fasting labs prior | | | | [place], | [place], | to appt) | | | | [place] [address] | [place] [address] | | | | | [phone] | | | | | | | [...] | | | | | | [place] [address] | | | | | | [phone] | | | | | | | | +--------+ + + + + | 11/20/ | Implant | Cardiology | Daljit Singletary, | Remote Device | | 2018 | Monitor | | MD [place] | Interrogation | | | | | [place], | (Primary Dx); | | | | | [place] [address] | Presence of | | | | | [phone] | permanent cardiac | | | | [...]
--- OUTSIDE RECORDS SUMMARY | ~2019-10-04 | XMS | Encounter Summary ---
Demographics + + + | Address | [address] | | | [place] [address] | + + + | Home Phone [...] Team Providers + +------+ + | Care Gasket Winder Name | Role | Phone | [...] [address] | | | | | [place], | [place], | | | | | [place] [address] | [place] [address] | | | | | [phone] | [phone] | | | | | | | [...] W | | | | | | [place], | | | | | | [place] [address] | | | | | | [phone] | | | | | | | | +--------+ + + + + | 11/20/ | Implant | Cardiology | Daljit Singletary, | Remote Device | | 2018 | Monitor | | [address] | Interrogation | | | | | [place], | (Primary Dx); | | | | | [place] [address] | Presence of | | | | | [phone] | permanent cardiac | | | | [...]
--- OUTSIDE RECORDS SUMMARY | ~2019-10-04 | XMS | Encounter Summary ---
Demographics + + + | Address | [address] | | | [place] [address] | + + + | Home Phone [...] Providers + +------+ + | Care Maintenance Services Dispatcher Name | Role | Phone | + +------+ + PCP | Unavailable | + +------+ + Encounter Details +--------+ + + + + | Date | Type | Department | Care Team | Description | +--------+ + + + + | 10/29/ | Hospital | [facility] | Pia Akhtar | | | 2003 | Encounter | CONVERSION DEP [address] | MD [address] | | | | | [address] | [address] | | | | | [place] | [place] [address] | | | | | [address] | [phone] | | | | | [phone] | | | +--------+ + + + [...] | | | | | | [place] [address] | | | | | | [phone] | | | | | | | | +--------+ + + + + | 11/20/ | Implant | Cardiology | Daljit Singletary, | Remote Device | | 2019 | Monitor | | MD [place] | Interrogation | | | | | [place], | (Primary Dx); | | | | | [place] [address] | Presence of | | | | | [phone] | permanent cardiac | | | | [...]
--- OUTSIDE RECORDS SUMMARY | ~2019-10-04 | XMS | Encounter Summary ---
Demographics + + + | Address | [address] | | | [place] [address] | + + + | Home Phone [...] Providers + +------+ + | Care Crucible Furnace Tender Name | Role | Phone [...] | RN | | | | | [place], | | | | | | [place] [address] | | | | | | [phone] | | | +--------+ + + + [...] | | | | | | [place] [address] | | | | | | [phone] | | | | | | | | +--------+ + + + + | 11/20/ | Implant | Cardiology | Daljit Singletary, | Remote Device | | 2019 | Monitor | | [facility] | Interrogation | | | | | [place], | (Primary Dx); | | | | | [place] [address] | Presence of | | | | | [phone] | permanent cardiac | | | | [...]
--- OUTSIDE RECORDS SUMMARY | ~2019-10-04 | XMS | Encounter Summary ---
Demographics + + + | Address | [address] | | | [place] [address] | + + + | Home Phone [...] Providers + +------+ + | Care Sack Department Supervisor Name | Role | Phone [...] | Interrogation | | | | [place], | [place], | (Primary Dx); | | | | [place] [address] | [place] [address] | Pacemaker; | | | | [phone] | [phone] | Sinoatrial node | | | | [...] | | | | | | [place] [address] | | | | | | [phone] | | | | | | | | +--------+ + + + + | 11/20/ | Implant | Cardiology | Daljit Singletary, | Remote Device | | 2019 | Monitor | | MD [place] | Interrogation | | | | | [place], | (Primary Dx); | | | | | [place] [address] | Presence of | | | | | [phone] | permanent cardiac | | | | [...] remote PDF scanned into | | | [facility] for remote interrogation results. [...]
--- OUTSIDE RECORDS SUMMARY | ~2019-10-04 | XMS | Encounter Summary ---
Demographics + + + | Address | [address] | | | [place] [address] | + + + | Home Phone [...] Team Providers + +------+ + | Care Outsoles Channel Opener Name | Role | Phone | + +------+ + PCP | Unavailable | + +------+ + Encounter Details +--------+ + + + + | Date | Type | Department | Care Team | Description | +--------+ + + + + | 09/13/ | [facility] | [facility] | Jonathan, | | | 2009 | Encounter | MED CTR EMERGENCY | Martell Cr MD [address] | | | | | CENTER [address] | [place] | | | | | [place] | [place] [address] | | | | | [address] | [phone] | | | | | [phone] | | | +--------+ + + + [...] | | | | | | [place], | | | | | | [place] [address] | | | | | | [phone] | | | | | | | | +--------+ + + + + | 11/20/ | Implant | Cardiology | Daljit Singletary, | Remote Device | | 2019 | Monitor | | MD [place] | Interrogation | | | | | [place], | (Primary Dx); | | | | | [place] [address] | Presence of | | | | | [phone] | permanent cardiac | | | | [...]
--- OUTSIDE RECORDS SUMMARY | ~2019-10-04 | XMS | Encounter Summary ---
Demographics + + + | Address | [address] | | | [place] [address] | + + + | Home Phone [...] Providers + +------+ + | Care Loan Officer Name | Role | Phone [...] | | CARDIOLOGY [address] | Janeen COTTON SEED CULLER [address] | | | | | [place], | [place], | | | | | [place] [address] | [place] [address] | | | | | [phone] | [phone] | | | | | | | [...] W | | | | | | [place], | | | | | | [place] [address] | | | | | | [phone] | | | | | | | | +--------+ + + + + | 11/20/ | Implant | Cardiology | Daljit Singletary, | Remote Device | | 2018 | Monitor | | MD [place] | Interrogation | | | | | [place], | (Primary Dx); | | | | | [place] [address] | Presence of | | | | | [phone] | permanent cardiac | | | | [...]
--- OUTSIDE RECORDS SUMMARY | ~2019-10-04 | XMS | Encounter Summary ---
Demographics + + + | Address | [address] | | | [place] [address] | + + + | Home Phone [...] Providers + +------+ + | Care Post Partum Nurse Name | Role | Phone | + +------+ + PCP | Unavailable | + +------+ + Encounter Details +--------+ + + + + | Date | Type | Department | Care Team | Description | +--------+ + + + + | 12/01/ | Hospital | [facility] | | | | 1997 | Encounter | MED CTR EMERGENCY | | | | | | CENTER [address] | | | | | | [place] | | | | | | [address] | | | | | | [phone] | | | +--------+ + + + [...] | | | | | | [place] [address] | | | | | | [phone] | | | | | | | | +--------+ + + + + | 11/20/ | Implant | Cardiology | Daljit Singletary, | Remote Device | | 2018 | Monitor | | [facility] | Interrogation | | | | | [place], | (Primary Dx); | | | | | [place] [address] | Presence of | | | | | [phone] | permanent cardiac | | | | [...]
--- OUTSIDE RECORDS SUMMARY | ~2019-10-04 | XMS | Encounter Summary ---
Demographics + + + | Address | [address] [place] [address] | | | [place] [address] | + + + | Home Phone [...] [place] | | | | | [address] | | + + + + + Care Team Providers + +------+ + | Care Appliance Service Supervisor Name | Role | Phone [...] | | Bradycardia | | | | [place], [place] | | | | | | [address] | | | | | | [phone] | | | +--------+------+ + + + [...] Way Lab) | [facility] | | [facility] [place] [address] | REGIONAL | | [place] [address] | LABORATORY | + + + + + + + + | Performing | Address | City/State/Zipcode | Phone Number | | Organization | | | | + + + + + | [facility] | [address] | [place] [address] | | | LABORATORY | | | [...] ([address] [facility]) | | | [facility] [address] | | | [place] [address] | | + + + + + + + + | Performing | Address | City/State/Zipcode | Phone Number | | Organization | | | | + + + + + | [facility] | [address] | [place] [address] | | | LABORATORY | | | [...] | | | DEPARTMENT | | | VINCENTIAN | | | OF | | | [...] DEPARTMENT OF | [address] | [place] [address] | | | PATHOLOGY | [address] | | | + + + + + documented in this encounter Visit Diagnoses + + | Diagnosis | + + | Chest pain Chest pain, unspecified | + + | Bradycardia Other specified cardiac dysrhythmias | + + documented in this encounter"
--- OUTSIDE RECORDS SUMMARY | ~2019-10-04 | XMS | Encounter Summary ---
Demographics + + + | Address | [address] | | | [place] [address] | + + + | Home Phone [...] + +------+ + | Care Social Worker Health Services Name | Role | Phone [...] | | | | of feces, | [place], [place] | [address] | | | | | unspecified | [address] [place] | [place], [place] | | | | | fecal | [place], [place] | [address] | | | | | incontinence | [address] | Phone: | | | | | type | Phone: | [phone] | | | | | Diarrhea, | [phone] | Fax: | | | | | unspecified | Fax: | [phone] | | | | | type | [phone] | | +--------+ + + + + [...] 2018 | | GASTROENTEROLOGY | [address] [place], [place] | | | | | [address] [place] | [address] [place], [place] | | | | | [address] [place], [place] | [address] | | | | | [address] | | | | | | [phone] | | | +--------+ + + + [...] | | | | | | [place] [address] | | | | | | [phone] | | | | | | | | +--------+ + + + + | 11/20/ | Implant | Cardiology | Daljit Singletary, | Remote Device | | 2018 | Monitor | | [address] [place] | Interrogation | | | | | [place], | (Primary Dx); | | | | | [place] [address] | Presence of | | | | | [phone] | permanent cardiac | | | | [...]
--- OUTSIDE RECORDS SUMMARY | ~2019-10-04 | XMS | Encounter Summary ---
Demographics + + + | Address | [address] | | | [place] [address] | + + + | Home Phone [...] + | 06/24/ | Telephone | [facility] | Daljit Singletary, | Lab Order | | 2017 | | CARDIOLOGY [address] | MD [address] | | | | | [place], | [place], | | | | | [place] [address] | [place] [address] | | | | | [phone] | [phone] | | | | | | | [...] | | | | | | [place] [address] | | | | | | [phone] | | | | | | | | +--------+ + + + + | 11/20/ | Implant | Cardiology | Daljit Singletary, | Remote Device | 2018 | Monitor | | [facility] | Interrogation | | | | | [place], | (Primary Dx); | | | | | [place] [address] | Presence of | | | | | [phone] | permanent cardiac | | | | [...] 06/24/2018, Expires: | | | | | kiowa tribe coronary | 06/24/2019 | | | | | artery of kiowa tribe | | | | | | heart without angina | | | | | | pectoris | | | | | | Hyperlipidemia, | | | | | | mixed | | + +------+--------+ + + documented as of this encounter Visit Diagnoses + + | Diagnosis | + + | Coronary artery disease involving kiowa tribe coronary artery of kiowa tribe heart without | | angina pectoris - Primary | + + | Hyperlipidemia, mixed Mixed hyperlipidemia | + + documented in this encounter"
--- OUTSIDE RECORDS SUMMARY | ~2019-10-04 | XMS | Encounter Summary ---
Demographics + + + | Address | [address] | | | [place] [address] | + + + | Home Phone [...] Team Providers + +------+ + | Care Diversified Crops Farmworker Name | Role | Phone | + +------+ + PCP | Unavailable | + +------+ + Encounter Details +--------+ + + + + | Date | Type | Department | Care Team | Description | +--------+ + + + + | 01/27/ | [facility] | [facility] | Jonathan, | | | 2008 | Encounter | MED CTR EMERGENCY | Martell Cr MD [address] | | | | | CENTER [address] | [place] | | | | | [place] | [place] [address] | | | | | [address] | [phone] | | | | | [phone] | | | +--------+ + + + [...] | | | | | | [place], | | | | | | [place] [address] | | | | | | [phone] | | | | | | | | +--------+ + + + + | 11/20/ | Implant | Cardiology | Daljit Singletary, | Remote Device | | 2019 | Monitor | | MD [address] | Interrogation | | | | | [place], | (Primary Dx); | | | | | [place] [address] | Presence of | | | | | [phone] | permanent cardiac | | | | [...]
--- OUTSIDE RECORDS SUMMARY | ~2019-10-04 | XMS | Encounter Summary ---
Demographics + + + | Address | [address] | | | [place] [address] | + + + | Home Phone [...] Team Providers + +------+ + | Care Tight Rope Walker Name | Role | Phone | + +------+ + | Kirk French MD | PCP | | + +------+ + Encounter Details +--------+ + + + + | Date | Type | Department | Care Team | Description | +--------+ + + + + | 04/07/ | Hospital | [facility] | Pia Akhtar | Spinal stenosis of | | 2016 | Encounter | MED CTR XRAY [address] | MD [address] | lumbar region | | | | [place] | [address] | | | | | [place] [address] | [place] [address] | | | | | [phone] | [phone] | | | | | | | [...] + + + +---------+ + + | [place]-3 Fatty | CAPS, one capsule by | [...] | | | | | | [place] [address] | | | | | | [phone] | | | | | | | | +--------+ + + + + | 11/20/ | Implant | Cardiology | Daljit Singletary, | Remote Device | | 2018 | Monitor | | [facility] | Interrogation | | | | | [place], | (Primary Dx); | | | | | [place] [address] | Presence of | | | | | [phone] | permanent cardiac | | | | [...]
--- OUTSIDE RECORDS SUMMARY | ~2019-10-04 | XMS | Encounter Summary ---
Demographics + + + | Address | [address] | | | [place] [address] | + + + | Home Phone [...] Providers + +------+ + | Care Casting Chipper Name | Role | Phone | + +------+ + PCP | Unavailable | + +------+ + Encounter Details +--------+ + + + + | Date | Type | Department | Care Team | Description | +--------+ + + + + | 06/17/ | Hospital | [facility] | | | | 2007 | Encounter | MED CTR EMERGENCY | | | | | | [place] [address] | | | | | | [place] | | | | | | [address] | | | | | | [phone] | | | +--------+ + + + [...] | | | | | | [place] [address] | | | | | | [phone] | | | | | | | | +--------+ + + + + | 11/20/ | Implant | Cardiology | Daljit Singletary, | Remote Device | | 2018 | Monitor | | [facility] | Interrogation | | | | | [place], | (Primary Dx); | | | | | [place] [address] | Presence of | | | | | [phone] | permanent cardiac | | | | [...]
--- OUTSIDE RECORDS SUMMARY | ~2019-10-04 | XMS | Encounter Summary ---
Demographics + + + | Address | [address] | | | [place] [address] | + + + | Home Phone [...] Team Providers + +------+ + | Care Canvas Baster Jumpbasting Name | Role | Phone [...] + + | 08/30/ | Refill | [facility] | Kirk French | Medication Refill | | 2019 | | [facility] | MD Bre[address] | | | | | PRIMARY C[address] | | | | | [address] | [place] [address] | | | | | [place], [place] | [phone] | | | | | [address] | | | | | | [phone] | | | +--------+--------+ + + + [...] | | | | | | [place] [address] | | | | | | [phone] | | | | | | | | +--------+ + + + + | 11/20/ | Implant | Cardiology | Daljit Singletary, | Remote Device | | 2018 | Monitor | | MD [address] | Interrogation | | | | | [place], | (Primary Dx); | | | | | [place] [address] | Presence of | | | | | [phone] | permanent cardiac | | | | [...]
--- OUTSIDE RECORDS SUMMARY | ~2019-10-04 | XMS | Encounter Summary ---
Demographics + + + | Address | [address] | | | [place] [address] | + + + | Home Phone [...] Team Providers + +------+ + | Care Biofuels Technology Development Manager Name | Role | Phone [...] + + | 06/25/ | Office | [facility] | [place], | SINUS BRADYCARDIA | | 2013 | Visit | CARDIOLOGY [address] | PARISA [place] [address] | (Primary Dx); | | | | [place], | [place], | Symptomatic PVCs; | | | | [place] [address] | [place] [address] | Coronary artery | | | | [phone] | [phone] | disease; | | | | | [...] time, he was admitted over observation at [facility] for a chest pain. Aortogram revealed [...] needed for Chest pain. 25 tablet 12 [place]-3 Fatty Acids (SALMON OIL-1000 PO) CAPS, one [...] HGBEX 16.1 01/25/2014 I reviewed records from [facility] for emergency department visit o n 05/26/2014 [...] out. D. [facility] 12/25/13, shows non critical coronary artery disease, [...] go back in 3 days to [facility] for an attempt of ablation under general [...] made to ensure accuracy; however, inadvertent computerized flat screen worker errors may be pre sent. Electronically [...] W | | | | | | [place], | | | | | | [place] [address] | | | | | | [phone] | | | | | | | | +--------+ + + + + | 11/20/ | Implant | Cardiology | Daljit Singletary, | Remote Device | | 2018 | Monitor | | [address] [place] | Interrogation | | | | | [place], | (Primary Dx); | | | | | [place] [address] | Presence of | | | | | [phone] | permanent cardiac | | | | [...] of unspecified type of vessel, | | dry creek or graft | + + | Hypertension Unspecified essential hypertension | + + | Syncope Syncope and collapse | + + | Hyperlipidemia Other and unspecified hyperlipidemia | + + documented in this encounter
--- OUTSIDE RECORDS SUMMARY | ~2019-10-04 | XMS | Encounter Summary ---
Demographics + + + | Address | [address] | | | [place] [address] | + + + | Home Phone [...] Providers + +------+ + | Care Boat Cleaner Name | Role | Phone | + +------+ + PCP | Unavailable | + +------+ + Encounter Details +--------+ + + + + | Date | Type | Department | Care Team | Description | +--------+ + + + + | 01/20/ | [facility] | [facility] | Geri Angel, | | | 2009 | Encounter | MED CTR GENERIC OP | BANK COMPLIANCE OFFICER [address] | | | | | CONV DEPT [address] | [address] [place] | | | | | [place], | [address] | | | | | [place] [address] | | | | | | [phone] | | | +--------+ + + + [...] W | | | | | | [place], | | | | | | [place] [address] | | | | | | [phone] | | | | | | | | +--------+ + + + + | 11/20/ | Implant | Cardiology | Daljit Singletary, | Remote Device | | 2019 | Monitor | | MD [address] | Interrogation | | | | | [place], | (Primary Dx); | | | | | [place] [address] | Presence of | | | | | [phone] | permanent cardiac | | | | [...]
--- OUTSIDE RECORDS SUMMARY | ~2019-10-04 | XMS | Encounter Summary ---
Demographics + + + | Address | [address] | | | [place] [address] | + + + | Home Phone [...] + +------+ + | Care Manager Of Change Name | Role | Phone | + [...] Results | | 2013 | | [facility] [place] | DO [address] | | | | | [address] | [place] | | | | | [place] | [address] | | | | | [address] | | | | | | [phone] | | | +--------+ + + + [...] | | | | | | [place] [address] | | | | | | [phone] | | | | | | | | +--------+ + + + + | 11/20/ | Implant | Cardiology | Daljit Singletary, | Remote Device | | 2018 | Monitor | | MD [address] | Interrogation | | | | | [place], | (Primary Dx); | | | | | [place] [address] | Presence of | | | | | [phone] | permanent cardiac | | | | [...]
--- OUTSIDE RECORDS SUMMARY | ~2019-10-04 | XMS | Encounter Summary ---
Demographics + + + | Address | [address] | | | [place] [address] | + + + | Home Phone [...] Providers + +------+ + | Care Sole Filler Name | Role | Phone | [...] | Aneurysmal | [place], | [address] [place] | | | | | dilatation | PARISA Solis | [place], | | | | | ([facility]) | [address] | [place] | | | | | Procedures | [place] | [address] | | | | | ECHO | [place], | Phone: | | | | | Complete | [place] | [phone] | | | | | | [address] | Fax: | | | | | | Phone: | [phone] | | | | | | [phone] | | | | | | | Fax: | | | | | | | [phone] | | +--------+--------+ + + + + [...] | | | | | Aneurysmal | [place], | [address] [place] | | | | | dilatation | PARISA Solis | [place], | | | | | ([facility]) | [address] | [place] | | | | | Procedures | [place] | [address] | | | | | ECHO | [place], | Phone: | | | | | Complete | [place] | [phone] | | | | | | [address] | Fax: | | | | | | Phone: | [phone] | | | | | | [phone] | | | | | | | Fax: | | | | | | | [phone] | | +--------+--------+ + + + + Encounter Details +--------+ + + + + | Date | Type | Department | Care Team | Description | +--------+ + + + + | 11/16/ | Hospital | [facility] | [place], | Aneurysmal | | 2017 | Encounter | MED CTR ECHO [address] | Janeen, AIR SAMPLER [address] | dilatation (HCC) | | | | [place] | [place], | | | | | [place], [place] [address] | [place] [address] | | | | | [phone] | [phone] | | | | | | | [...] + + + +---------+ + + | [place]-3 Fatty | CAPS, one capsule by [...] | | | | | | [place] [address] | | | | | | [phone] | | | | | | | | +--------+ + + + + | 11/20/ | Implant | Cardiology | Sydni Singletary, | Remote Device | | 2019 | Monitor | | MD [address] [facility] | Interrogation | | | | | [place], | (Primary Dx); | | | | | [place] [address] | Presence of | | | | | [phone] | permanent cardiac | | | | [...] Patient Name VICTOR HUGO | | | LUCKEY Room Number SARAH Patient | | | [id number] Date of Study 11/16/2017 Number | | | Visit Number [id number] | | | Referring Physician GURJIT TROY Number | | | NORMA SOLIS Date | | | of 1960 Gyroscope Technician ROMAINE | | | MARISSA TIPTON Age 57 year(s) Interpreting | | | GURJIT TROY | | | Field Ironworker SYDNI SINGLETARY, | | | MD | | | Gender Male Nurse | | | Stress Learning Manager Procedure Type of | | | [...] | | | EF | | | Amtnemvbs18% Left Ventricle Diastolic Dimension: 5.12 cm | [...] Volume: 46.33 ml | | | EF Vwgpgypco47% | | | | | | Left [...] Rad Results In - 11/16/2017 1:48 PM [facility] Transthoracic Echocardiography Report | | (TTE) Demographics Patient Name VICTOR HUGO BARRY Room Number SARAH | | Patient [id number] Date of Study 11/16/2017 Number Visit Number | | [id number] Referring Physician GURJIT TROY | | Number NORMA SOLIS Date of | | 1960 Gyroscope Technician ROMAINE TIPTON [facility] Age 57 year(s) | | Interpreting GURJIT TROY Field Ironworker | | SYDNI SINGLETARY MD | | [...] | | ------ Electronically signed by SYDNI SNIGLETARY MD(Interpreting physician) on | | 11/16/2017 01:48 [...] LA Volume: 46.33 ml | | EF Aabtssfxc13% Left Ventricle Diastolic Dimension: 5.12 cm Systolic [...] LA Volume: 46.33 ml | | EF Zozoeilca22% | | | | Left Ventricle | [...]
--- OUTSIDE RECORDS SUMMARY | ~2019-10-04 | XMS | Encounter Summary ---
Demographics + + + | Address | [address] | | | [place] [address] | + + + | Home Phone [...] Providers + +------+ + | Care Asbestos Cement Sheet Supervisor Name | Role | Phone | [...] | | | | exertion | | [place] | | | | | Chest pain | | [place], [place] | | | | | on exertion | | [address] | | | | | | | Phone: | | | | | | | [phone] | | | | | | | Fax: | | | | | | | [phone] | +--------+--------+ + + + + Encounter Details +--------+ + + + + | Date | Type | Department | Care Team | Description | +--------+ + + + + | 04/27/ | [facility] | Martell Hart | Chest pain on | | 2014 - | | MED CTR MEDICAL | Sanjay Palacios MD | exertion (Primary | | | | [address] [address] [place] | [address] | Dx); Dyspnea on | | 03/20/ | | [place] [address] | [place], [place] | exertion; Essential | | 2014 | | [phone] | [address] | hypertension; Acute | | | | | | chest pain; | | | | | Parth Kraft, | Dizziness, | | | | | [address] | nonspecific; Mixed | | | | | [place], [place] | anxiety depressive | | | | | [address] | disorder; PUD | | | | | [phone] | (peptic ulcer | | | | [...] Daily. to reduce urinary frequency - Lot #[id number], exp 07/2016 aka: RAPAFLO UNCODED MEDICATION - [...] hospital follow up Contact information: [address] [address] Call PARISA Russell. Specialty: Nurse Practitioner Why: As needed Contact information: [address] [place] [address] Condition: Patient being discharged with condition improved. Diet: Heart healthy, avoid acidic drinks and foods, spicy foods, too much coffee. Greater than 30 minutes were spent on discharge and coordination of post-hospital care. Electronically signed by: Thierry Fregoso DO, 03/20/2015 11:22 [facility] Portions of this chart may have been created with Bloomspot voice recognition software. Occasi onal wrong-word or [...] afford the prescribed medication, you can try kbaq-ksr-fulztke acid blockers, such as Pepcid AC, Tagamet, [...] or as directed by your healthcare provider [phone] [employer]. [address] [place] [address]. All righ ts reserved. This information is [...] + + + +---------+ + + | [place]-3 Fatty | CAPS, one capsule by | [...] | | | | | | | #[id number], exp 07/2016 | | | | | [...] Sanchez : 1960: Age: 55 y.o. MedRec: [id number] PCP: Kirk French Admission date: 03/18/2015 Hospital [...] 81 mg 81 mg Oral Daily Parth Krfat MD 81 mg at 5 0949 calcium [...] 1708 03/18/15 1528 TROPONINI <0.01 <0.01 0.01 [facility] ECHOCARDIOGRAM REPORT STUDY DATE: 03/19/2015 PATIENT NAME: [...] changes. No results for input(s): PHART, PO2ART, GFY3WPC, VQV8BOA, BEART, U7GRBFTQ in the last 168 h ours. No results for input(s): SPECSOURCE, PHPOCB, HCO3, TCO2, BEART, BE, FKIG5IFE in the last 16 8 hours. Invalid input(s): MBXIJ7WU, GRXG8BK Point of care glucose: No results for [...] minutes today. Thierry Fregoso DO 03/19/2015 22:09 [facility] Portions of this chart may have been created with Bloomspot voice recognition software. Occasi onal wrong-word or sound-alike substitutions may have occurred due to the inherent granger itations of voice recognition software. Please read the chart carefully and recognize, using context, where these substitutions have occurred Belén Cho RN - 03/19/2015 11:03 AM [id number] Report given to Marlen morejon who is [...] W | | | | | | [place], | | | | | | [place] [address] | | | | | | [phone] | | | | | | | | +--------+ + + + + | 11/20/ | Implant | Cardiology | Daljit Singletary, | Remote Device | | 2018 | Monitor | | [address] [facility] | Interrogation | | | | | [place], | (Primary Dx); | | | | | [place] [address] | Presence of | | | | | [phone] | permanent cardiac | | | | [...] Performed At | + + + | [facility] ECHOCARDIOGRAM REPORT | | | STUDY DATE: [...] [facility] 03/19/2015 15:44 | | | Overedge Sewer: Dewey Valdez RDMS | | + + [...] [address] | [place] | [phone] | | [facility] | | [address] | | | - LABORATORY | | [...] | mL/min/1.73m2 | MICHELLE | | | [place] | RATE,ESTIMATED | | MEDICAL | | | | mL/min/1.34y8Ykxv than | | CENTER - | | [...] [address] | [place] | [phone] | | [facility] | | [address] | | | - LABORATORY | | [...] [address] | [place] | [phone] | | [facility] | | [address] | | | - LABORATORY | | [...] ST. | [address] | [place] | [phone] | | [facility] | | [address] | | | - LABORATORY | | [...] | [address] | [place] | [phone] | | [facility] | | [address] | | | - LABORATORY | | [...] [address] | [place] | [phone] | | [facility] | | [address] | | | - LABORATORY | | [...] [address] | [place] | [phone] | | [facility] | | [address] | | | - LABORATORY | | [...] + | [facility] | [address] | [place] | [phone] | | [facility] | | [address] | | | - LABORATORY | | [...] + | [facility] | [address] | [place] | [phone] | | [facility] | | [address] | | | [address] | [place] | [phone] | | [facility] | | [address] | | | - LABORATORY | | [...] | | | FILTRATION | mL/min/1.73m2 | [facility] | | | [place] | RATE,ESTIMATED | | MEDICAL | | | | mL/min/1.00i0Oyva than | | CENTER - | | [...] + | [facility] | [address] | [place] | [phone] | | [facility] | | [address] | | | - LABORATORY | | [...] [address] | [place] | [phone] | | [facility] | | [address] | | | - LABORATORY | | [...]
--- OUTSIDE RECORDS SUMMARY | ~2019-10-04 | XMS | Encounter Summary ---
Demographics + + + | Address | [address] | | | [place] [address] | + + + | Home Phone [...] Providers + +------+ + | Care Engineering Operator Name | Role | Phone | + +------+ + PCP | Unavailable | + +------+ + Encounter Details +--------+ + + + + | Date | Type | Department | Care Team | Description | +--------+ + + + + | 04/23/ | Hospital | [facility] | | | | 2007 - | Encounter | MED CTR MED ONC | | | | | | [address] [place] | | | | 04/24/ | | [place] [address] | | | | 2007 | | [phone] | | | +--------+ + + + [...] | | | | | | [place] [address] | | | | | | [phone] | | | | | | | | +--------+ + + + + | 11/20/ | Implant | Cardiology | Daljit Singletary, | Remote Device | | 2018 | Monitor | | [address] [facility] | Interrogation | | | | | [place], | (Primary Dx); | | | | | [place] [address] | Presence of | | | | | [phone] | permanent cardiac | | | | [...]
--- OUTSIDE RECORDS SUMMARY | ~2019-10-04 | XMS | Encounter Summary ---
Demographics + + + | Address | [address] | | | [place] [address] | + + + | Home Phone [...] + +------+ + | Care Credit Control Clerk Name | Role | Phone [...] + | 01/24/ | Telephone | [facility] | Daljit Singletary, | Other | | 2019 | | CARDIOLOGY [address] | MD [address] | | | | | [place], | [place], | | | | | [place] [address] | [place] [address] | | | | | [phone] | | | | | | | [...] | | | | | | [place] [address] | | | | | | [phone] | | | | | | | | +--------+ + + + + | 11/20/ | Implant | Cardiology | Daljit Singletary, | Remote Device | | 2018 | Monitor | | MD [address] | Interrogation | | | | | [address] [place], | (Primary Dx); | | | | | [place] [address] | Presence of | | | | | [phone] | permanent cardiac | | | | [...]
--- OUTSIDE RECORDS SUMMARY | ~2019-10-04 | XMS | Encounter Summary ---
Demographics + + + | Address | [address] | | | [place] [address] | + + + | Home Phone [...] Providers + +------+ + | Care Shipping Specialist Name | Role | Phone | [...] | | CARDIOLOGY [address] | HEALTH INFORMATION CLERK [address] | to be referred | | | | [place], | [place], [place] | soon) | | | | [place] [address] | [address] | | | | | [phone] | | | +--------+ + + + [...] W | | | | | | [place], | | | | | | [place] [address] | | | | | | [phone] | | | | | | | | +--------+ + + + + | 11/20/ | Implant | Cardiology | Daljit Singletary, | Remote Device | | 2018 | Monitor | | [address] | Interrogation | | | | | [place], | (Primary Dx); | | | | | [place] [address] | Presence of | | | | | [phone] | permanent cardiac | | | | [...]
--- OUTSIDE RECORDS SUMMARY | ~2019-10-04 | XMS | Encounter Summary ---
Demographics + + + | Address | [address] | | | [place] [address] | + + + | Home Phone [...] Providers + +------+ + | Care Yarn Spooler Name | Role | Phone | [...] + + | 08/30/ | Refill | [facility] | Kirk French | Medication Refill | | 2019 | | [facility] | MD Bre[address] | | | | | PRIMARY [address] | | | | | [address] | [place] [address] | | | | | [place], [place] | [phone] | | | | | [address] | | | | | | [phone] | | | +--------+--------+ + + + [...] | | | | | | [place] [address] | | | | | | [phone] | | | | | | | | +--------+ + + + + | 11/20/ | Implant | Cardiology | Daljit Singletary, | Remote Device | | 2018 | Monitor | | [address] | Interrogation | | | | | [place], | (Primary Dx); | | | | | [place] [address] | Presence of | | | | | [phone] | permanent cardiac | | | | [...]
--- OUTSIDE RECORDS SUMMARY | ~2019-10-04 | XMS | Encounter Summary ---
Demographics + + + | Address | [address] | | | [place] [address] | + + + | Home Phone [...] Team Providers + +------+ + | Care Intermediate Accountant Name | Role | Phone | [...] Provider Unknown | | | | | [place], [place] | [phone] | | | | | [address] | | | | | | [phone] | | | +--------+ + + + [...] + + + +---------+ + + | Bayamon-3 Fatty | CAPS, one capsule by | [...] | | | | | | | #[id number], exp 07/2016 | | | | | [...] | | | | | | [place] [address] | | | | | | [phone] | | | | | | | | +--------+ + + + + | 11/20/ | Implant | Cardiology | Daljit Singletary, | Remote Device | | 2018 | Monitor | | MD [address] | Interrogation | | | | | [place], | (Primary Dx); | | | | | [place] [address] | Presence of | | | | | [phone] | permanent cardiac | | | | [...]
--- OUTSIDE RECORDS SUMMARY | ~2019-10-04 | XMS | Encounter Summary ---
Demographics + + + | Address | [address] | | | [place] [address] | + + + | Home Phone [...] Team Providers + +------+ + | Care Climatology Professor Name | Role | Phone | [...] 2019 | | GASTROENTEROLOGY | [address] [place] | | | | | [address] | [address] [place], [place] | | | | | [address] [place], [place] | [address] | | | | | [address] | | | | | | [phone] | | | +--------+ + + + [...] W | | | | | | [address] [place], | | | | | | [place] [address] | | | | | | [phone] | | | | | | | | +--------+ + + + + | 11/20/ | Implant | Cardiology | Daljit Singletary, | Remote Device | | 2019 | Monitor | | [address] | Interrogation | | | | | [place], | (Primary Dx); | | | | | [place] [address] | Presence of | | | | | [phone] | permanent cardiac | | | | [...]
--- OUTSIDE RECORDS SUMMARY | ~2019-10-04 | XMS | Encounter Summary ---
Demographics + + + | Address | [address] | | | [place] [address] | + + + | Home Phone [...] Providers + +------+ + | Care Lead Business Systems Analyst Name | Role | Phone [...] [address] | | | | | | [place], [place] | (Fax) | | | | | [address] | | | | | | [phone] | | | +--------+ + + + [...] | | | | | | [place] [address] | | | | | | [phone] | | | | | | | | +--------+ + + + + | 11/20/ | Implant | Cardiology | Daljit Singletary, | Remote Device | | 2018 | Monitor | | [facility] | Interrogation | | | | | [place], | (Primary Dx); | | | | | [place] [address] | Presence of | | | | | [phone] | permanent cardiac | | | | [...]
--- OUTSIDE RECORDS SUMMARY | ~2019-10-04 | XMS | Encounter Summary ---
Demographics + + + | Address | [address] [place] [address] | | | [place] [address] | + + + | Home Phone [...] [place] | | | | | [address] | | + + + + + Care Team Providers + +------+ + | Care Dredge Hand Name | Role | Phone | [...] Mailcode: | | | | | | Paalk Desai | [facility] | | | | | TRANSTHORACI | [place], [place] | for Health | | | | | C | [address] | and Healing, | | | | | ECHOCARDIOGR | Phone: | Building 1 | | | | | AM, ADULT | [phone] | [place], [place] | | | | | | Fax: | [address] | | | | | | [phone] | Phone: | | | | | | | [phone] | +--------+--------+ + + + + Reason [...] | | | | | | | [place] [address] | | | | | | | Phone: | | | | | | | [phone] | | | | | | | Fax: | | | | | | | [phone] | | +--------+--------+ + + + + Encounter Details +--------+---------+ + + + | Date | Type | Department | Care Team | Description | +--------+---------+ + + + | 02/03/ | Office | Cardiology General | Arlette Drew, | Chest pain (Primary | | 2010 | Visit | at [facility] [address] | MD | Dx); Bradycardia; | | | | [address] Mailcode: | | Pacemaker | | | | [address] [facility] | | | | | | Health and Healing, | | | | | | | | | | | | Floor [place], [place] | | | | | | [address] | | | | | | [phone] | | | +--------+---------+ + + + [...] per Dr. Drew's note. Farooq Jamil DO Television Program Director Clinical quiller hand/ Division of Cardiovascular Medicine Yajaira Borges, [place] - 02/09/2011 12:59 PM PDT PACEMAKER HISTORY Primary Care Provider: Darion Holden DO Bank Appraiser: Arlette Drew MD Moe Sanchez is a 50 y.o. male. 1. Chest pain (786.50F) 2. Bradycardia (427.89P) Device: Medtronic Adapta ADDR01 Implanted:06/14/09 LINDA: ADVISORY: NO Mode: AAIR-DDDR Lower Rate: 70 Upper Rate: 130 Demand Rate: 70 Magnet Rate: Battery Voltage: 2.80 Cell Impedance: 178 Estimated battery longevity: 7.5years Patient is not pacer dependent-underlying HR sinus ojsie, rate 35 Telephone monitoring is: off Output [...] chamber permanent pacemaker implantation on 06/14/09 in [place], Chronic smoker, mild DIDIER, bip olar disorder with anxiety who presents for second opinion regarding his syncopal episodes. Pt. started noticing dizzy spells and episodes of syncope about 3 years ago , pacemaker was put at the recommendation of Bank Appraiser Dr. Singletary from [place]. [place]. Pt. states lala bhatti was put>1 [...] etiology unclear this time. Devise interrogated by Yajaiar Vaz , please see her no marcos [...] Dr. Omero DREW MD CARDIOLOGY - GENERAL [address] Mailcode: [facility], 9th [address] [facility] [...] ([address] [facility]) | [facility] | | [facility] [address] [facility] | REGIONAL | | [place] [address] | LABORATORY | + + + + + + + + | Performing | Address | City/State/Zipcode | Phone Number | | Organization | | | | + + + + + | [facility] | [address] | [place] [address] | | | LABORATORY | | | [...] ([address] Lab) | | | [facility] [place] [address] | | | [place] [address] | | + + + + + + + + | Performing | Address | City/State/Zipcode | Phone Number | | Organization | | | | + + + + + | [facility] | [address] | [place] [address] | | | LABORATORY | | | [...] | | | DEPARTMENT | | | SERBIAN | | | OF | | | [...] CENTER DEPARTMENT | [address] | [place] [address] | | | PATHOLOGY | [address] [...] DEPT OF | [address] | [place], [place] | | | CARDIOLOGY | [address] | [address] | | + + + + + [...] DEPT OF | [address] | [place], [place] | | | CARDIOLOGY | [address] | [address] | | + + + + + [...] + + + | Please click | [facility] DEPT OF | | on view image for the detailed interpretation from [employer] results. | CARDIOLOGY | + + + + + + + + | Performing | Address | City/State/Zipcode | Phone Number | | Organization | | | | + + + + + | [facility] DEPT OF | [address] | [place], [place] | | | CARDIOLOGY | [address] | [address] | | + + + + + documented in this encounter Visit Diagnoses + + | Diagnosis | + + | Chest pain - Primary Chest pain, unspecified | + + | Bradycardia Other specified cardiac dysrhythmias | + + | Pacemaker Cardiac pacemaker in situ | + + documented in this encounter
--- OUTSIDE RECORDS SUMMARY | ~2019-10-04 | XMS | Encounter Summary ---
Demographics + + + | Address | [address] | | | [place] [address] | + + + | Home Phone [...] | Organization | [facility] | | | [...] + +------+ + | Care Criminal Justice Teacher Name | Role | Phone | [...] CTR CASE | RN | (referral from [facility]) | | | | MANAGEMENT [address] | | | | | | [place], | | | | | | [place] [address] | | | | | | [phone] | | | +--------+ + + + [...] | | | | | | [place] [address] | | | | | | [phone] | | | | | | | | +--------+ + + + + | 11/20/ | Implant | Cardiology | Daljit Singletary, | Remote Device | | 2018 | Monitor | | [address] | Interrogation | | | | | [place], | (Primary Dx); | | | | | [place] [address] | Presence of | | | | | [phone] | permanent cardiac | | | | [...]
--- OUTSIDE RECORDS SUMMARY | ~2019-10-04 | XMS | Encounter Summary ---
Demographics + + + | Address | [address] | | | [place] [address] | + + + | Home Phone [...] Providers + +------+ + | Care Veneer Sample Maker Name | Role | Phone | + +------+ + | Kirk French MD | PCP | | + +------+ + Encounter Details +--------+---------+ + + + | Date | Type | Department | Care Team | Description | +--------+---------+ + + + | 01/05/ | Surgery | [facility] | Emmanuel Daniel MD | EGD | | 2019 | | MED CTR MP INTRA OP | [address] [place] | | | | | [address] | [address] [place], [place] | | | | | [place], [place] | [address] | | | | | [address] | | | | | | [phone] | | | +--------+---------+ + + + [...] for a few hours. Date Last Reviewed: 09/22/201619999446-5792 [employer] [place] [address]. All righ ts reserved. This information is [...] vomiting, or vomiting blood Date Last Reviewed: 05/22/201619996987-1429 [employer]. [address] [place] [address]. All righ ts reserved. This information is [...] You can't be awakened Date Last Reviewed: 09/08/201619997428-1618 [employer]. [address] [place] [address], [place] [address]. All righ ts reserved. This information is [...] | | | | | | [address] [place], | | | | | | [place] [address] | | | | | | [phone] | | | | | | | | +--------+ + + + + | 11/20/ | Implant | Cardiology | Daljit Singletary, | Remote Device | | 2018 | Monitor | | [address] [facility] | Interrogation | | | | | [place], | (Primary Dx); | | | | | [place] [address] | Presence of | | | | | [phone] | permanent cardiac | | | | [...] [address], | REFERENCE LAB | | [place], [place] [address] Printer Repair Technician: Miguel Galarza MD, Phone: | [facility] | | [phone] | | + + + + + + + + | Performing | Address | City/State/Zipcode | Phone Number | | Organization | | | | + + + + + | REFERENCE LAB | [address] | [place] [address] | [phone] | | [facility] | Drive [...] + + | Performed at: 01 - [facility] [address] [address], | REFERENCE LAB | | [place], [place] [id number] Printer Repair Technician: Miguel Galarza MD, Phone: | [facility] | | [phone] | | + + + + + + + + | Performing | Address | City/State/Zipcode | Phone Number | | Organization | | | | + + + + + | REFERENCE LAB | [address] | [place] [address] | [phone] | | [facility] | Drive [...] [address] | [place] | [phone] | | [facility] | | [address] | | | - LABORATORY | | [...] [address] | [place] | [phone] | | [facility] | | [address] | | | - LABORATORY | | [...] [address] | [place] | [phone] | | [facility] | | [address] | | | - LABORATORY | | [...] [address] | [place] | [phone] | | [facility] | | [address] | | | - LABORATORY | | [...] + | [address] | [address] | [place] | [phone] | | [facility] | | [address] | | | - LABORATORY | | [...] [address] | [place] | [phone] | | [facility] | | [address] | | | - LABORATORY | | | | + + + + + EGD (01/05/2019 8:36 AM PST) + + | Specimen | + + | | + + + + -+ | Narrative | Performed At | + + -+ | | [facility] | | GastroenterologyPatient Name: Moe Venegas Date: | PROVATION | | 01/05/2019 8:36 AMMRN: [id number] #: [id number] of : | | | 9Admit Type: AmbulatoryAge: 58Room: [facility] 01Gender: MaleNote | | | Status: FinalizedAttending MD: Emmanuel Daniel , [facility] | | | Upper GI endoscopyIndications: Diarrhea, Weight | | | lossProviders: Emmanuel Daniel MD, Heidi Gonzalezchfield, | | | RN, Kim Hicks, Divisional Storekeeper, | | | Jarett Barakat MD (Anesthesia [...] physician, the nurse, the anesthesiologist and the cable technician | | | in the endoscopy [...] | | Imaging was performed using the [employer]elligent Chromo | | | Endoscopy (FICE) [...] Scope In: 8:43:57 AMScope Out: 8:49:[address] | | | [facility], [address] [place] [address] | | | [phone] | | |Recommendation: | | | - [...] Out: 8:49:50 AM | | | [facility], [address] [facility], [place], [place] | | | [address] | | + + -+ + +---------+ [...] | PROVATION | | 01/05/2019 8:36 AMMRN: [id number] #: [id number] of : | | | 9Admit Type: AmbulatoryAge: 58Room: [facility] 01Gender: MaleNote | | | Status: FinalizedAttending MD: Emmanuel Daniel , [facility]cedure: | | | ColonoscopyIndications: Clinically significant diarrhea of | | | unexplained origin, Weight lossProviders: | | | Emmanuel Daniel MD, Heidi An RN, Kim | | | Fiorella Hicks, Divisional Storekeeper, Jarett Alejo | | | MD Roshni [...] | | | the anesthesiologist and the cable technician in the endoscopy suite. 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 BES:[facility]:C3NR GROSS DESCRIPTION: A. The | | | specimen, labeled "[place], duodenal biopsy" is received in formalin | | | and consists of seven 0.1-0.5 cm lin fragments. Entirely submitted in | | | (A1). B. The specimen, labeled "[place], right colon" is received | | | in formalin and consists of six 0.2-0.3 cm lin fragments. Entirely | | | submitted in (B1). C. The specimen, labeled "[place], left colon" | | | is received in formalin and consists of six 0.2-0.3 cm lin-pink | | | fragments. Entirely submitted in (C1). am:AMB:rds PERFORMING | | | LABORATORY: The technical component was performed by [employer] | | | [facility], [address] [place] [address] (Material Carrier: | | | Kailey Stafford MD; CLIA# [id number]). Professional interpretation was | | | performed by [employer], [facility], [address] | | | [place] [address] (Material Carrier: Ishaan | | | Anthony Dao; CLIA#: [id number]). Diagnostician: Ishaan Fitzpatrick | | | Sylwia [...] PRN, Wheezing, | | | Starting [facility] 01/05/19 at 0924, | | | [...] | mL/hr | | | CONTINUOUS, Starting [facility] 01/05/19 | | AM PST | | | | | at 0800, Pre-op | | | | | | + +---------+ +---+-------+---+ + +---+ | | | + +---+ | ondansetron (ZOFRAN) injection | | | 4 mg 4 mg, Oral, EVERY 4 HOURS | | | PRN, Nausea, Vomiting, Starting | | | [facility] 01/05/19 at 0924, | | | Recovery/Phase I | | + +---+ | | | + +---+ | ondansetron (ZOFRAN) injection | | | 4 mg 4 mg, Intravenous, ONCE | | | PRN, Nausea, Starting [facility] 01/05/19 | | | at 0924, For 1 dose, | | | Recovery/Phase I | | + +---+ | | | + +---+ documented in this encounter
--- OUTSIDE RECORDS SUMMARY | ~2019-10-04 | XMS | Encounter Summary ---
Demographics + + + | Address | [address] | | | [place] [address] | + + + | Home Phone [...] Team Providers + +------+ + | Care Zigzag Stitcher Name | Role | Phone | + +------+ + PCP | Unavailable | + +------+ + Encounter Details +--------+ + + + + | Date | Type | Department | Care Team | Description | +--------+ + + + + | 01/15/ | [facility] | [facility] | Emmanuel Daniel MD | | | 1994 | Encounter | MED CTR GENERIC OP | [address] | | | | | CONV DEPT [address] | [address] [place] [address] | | | | | [place], | [address] | | | | | [place] [address] | | | | | | [phone] | | | +--------+ + + + [...] | | | | | | [place] [address] | | | | | | [phone] | | | | | | | | +--------+ + + + + | 11/20/ | Implant | Cardiology | Daljit Singletary, | Remote Device | | 2019 | Monitor | | MD [address] | Interrogation | | | | | [place], | (Primary Dx); | | | | | [place] [address] | Presence of | | | | | [phone] | permanent cardiac | | | | [...]
--- OUTSIDE RECORDS SUMMARY | ~2019-10-04 | XMS | Encounter Summary ---
Demographics + + + | Address | [address] | | | [place] [address] | + + + | Home Phone [...] Providers + +------+ + | Care Blasting Machine Operator Name | Role | Phone | + +------+ + PCP | Unavailable | + +------+ + Encounter Details +--------+ + + + + | Date | Type | Department | Care Team | Description | +--------+ + + + + | 08/02/ | Hospital | [facility] | | | | 2001 | Encounter | MED CTR EMERGENCY | | | | | | [place] [address] | | | | | | [place] | | | | | | [address] | | | | | | [phone] | | | +--------+ + + + [...] | | | | | | [address] [place], | | | | | | [place] [address] | | | | | | [phone] | | | | | | | | +--------+ + + + + | 11/20/ | Implant | Cardiology | Daljit Singletary, | Remote Device | | 2018 | Monitor | | [address] [facility] | Interrogation | | | | | [place], | (Primary Dx); | | | | | [place] [address] | Presence of | | | | | [phone] | permanent cardiac | | | | [...]
--- OUTSIDE RECORDS SUMMARY | ~2019-10-04 | XMS | Encounter Summary ---
Demographics + + + | Address | [address] | | | [place] [address] | + + + | Home Phone [...] Providers + +------+ + | Care Head Automatic Sawyer Name | Role | Phone | [...] [address] | | | | | | [place], [place] | (Fax) | | | | | [address] | | | | | | [phone] | | | +--------+ + + + [...] | | | | | | [place] [address] | | | | | | [phone] | | | | | | | | +--------+ + + + + | 11/20/ | Implant | Cardiology | Daljit Singletary, | Remote Device | | 2018 | Monitor | | [address] [facility] | Interrogation | | | | | [place], | (Primary Dx); | | | | | [place] [address] | Presence of | | | | | [phone] | permanent cardiac | | | | [...]
--- OUTSIDE RECORDS SUMMARY | ~2019-10-04 | XMS | Encounter Summary ---
Demographics + + + | Address | [address] | | | [place] [address] | + + + | Home Phone [...] Providers + +------+ + | Care Surg Physician Asst Name | Role | Phone | + +------+ + PCP | Unavailable | + +------+ + Encounter Details +--------+ + + + + | Date | Type | Department | Care Team | Description | +--------+ + + + + | 11/14/ | [facility] | [facility] | William Hirsch | | | 1999 | Encounter | MED CTR EMERGENCY | MD Cristobal [address] | | | | | CENTER [address] | [address] | | | | | [place] | [place] [address] | | | | | [address] | [phone] | | | | | [phone] | | | +--------+ + + + [...] | | | | | | [place] [address] | | | | | | [phone] | | | | | | | | +--------+ + + + + | 11/20/ | Implant | Cardiology | Daljit Singletary, | Remote Device | | 2018 | Monitor | | [address] | Interrogation | | | | | [place], | (Primary Dx); | | | | | [place] [address] | Presence of | | | | | [phone] | permanent cardiac | | | | [...]
--- OUTSIDE RECORDS SUMMARY | ~2019-10-04 | XMS | Encounter Summary ---
Demographics + + + | Address | [address] | | | [place] [address] | + + + | Home Phone [...] Providers + +------+ + | Care Fisheries Technical Officer Name | Role | Phone [...] [address] | | | | | [place], | [place], | | | | | [place] [address] | [place] [address] | | | | | [phone] | [phone] | | | | | | | [...] | | | | | | [place] [address] | | | | | | [phone] | | | | | | | | +--------+ + + + + | 11/20/ | Implant | Cardiology | Daljit Singletary, | Remote Device | | 2018 | Monitor | | [address] [facility] | Interrogation | | | | | [address] [place], | (Primary Dx); | | | | | [place] [address] | Presence of | | | | | [phone] | permanent cardiac | | | | [...]
--- OUTSIDE RECORDS SUMMARY | ~2019-10-04 | XMS | Encounter Summary ---
Demographics + + + | Address | [address] [place] [address] | | | [place] [address] | + + + | Home Phone [...] [place] | | | | | [address] | | + + + + + Care Team Providers + +------+ + | Care Powerhouse Mechanic Supervisor Name | Role | Phone [...] | | | | | [place] | [facility] [address] | | | | | | [place], [place] | [place], [place] | | | | | | [address] | [address] | | | | | | Phone: | Phone: | | | | | | [phone] | [phone] | | | | | | Fax: | Fax: | | | | | | [phone] | [phone] | +--------+--------+ + + + + Encounter Details +--------+---------+ + + + | Date | Type | Department | Care Team | Description | +--------+---------+ + + + | 09/28/ | Office | [facility] | Bridgette Rios, | | | 2019 | Visit | [facility] [address] | [address] | | | | | [address] | [place], [place] | | | | | Mailcode: Center | [address] | | | | | [facility] and | [phone] | | | | | [facility] [address] | | | | | | [place], [place] | | | | | | [address] | | | | | | [phone] | | | +--------+---------+ + + + [...] some lab orders to [facility] 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
--- OUTSIDE RECORDS SUMMARY | ~2019-10-04 | XMS | Encounter Summary ---
Demographics + + + | Address | [address] | | | [place] [address] | + + + | Home Phone [...] Providers + +------+ + | Care Manager Heart Name | Role | Phone | + [...] | | | [place] | [place] [address] | | | | | | [address] | Phone: | | | | | | Phone: | [phone] | | | | | | [phone] | Fax: | | | | | | Fax: | [phone] | | | | | | [phone] | | +--------+ + + + + [...] | diurnal enuresis | | | | [place], [place] | [place], [place] | (Primary Dx); BPH | | | | [address] | [address] | with | | | | [phone] | | obstruction/lower | | | | [...] Haleigh rodarte states that the surgeon in [place] who performed his neck surgery is no [...] CONDS CLASSIFIED ELSEWHERE (12/15/2010); Ulcerative colitis ([facility]); Ches t pain; SINUS BRADYCARDIA; HEPATITIS B; PUD; FATTY LIVER DISEASE; SUBSTANCE ABUSE, MULTIPLE; Preventative health care (06/26/2013); Bladder troubles; Tuberculosis; Anginal pain ([facility]); St roke ([facility]); Prostate troubles; and Neurological disorder. Past Surgical [...] needed for Chest pain. 25 tablet 12 [place]-3 Fatty Acids (SALMON OIL-1000 PO) CAPS, one [...] Date/Time: 04/22/2012 16:56 Transcribed Date/Time: 04/22/2012 17:32 Senior Ui Software Engineer: <Electronically Signed by Jama Solis MD> 04/23/12 [...] Date/Time: 04/23/2012 10:54 Transcribed Date/Time: 04/23/2012 11:06 Senior Ui Software Engineer: <Electronically Signed by Jama Solis MD> 04/24/12 4991 IMPRESSION: 1. Nocturnal and diurnal enuresis. I [...] bladder, still believe that the recommendations from [facility] neurosurgeon, Dr. Demarco, on 03/13/2014 would [...] have not thoroughly proofread this note, and ultrasonic solderer erro rs may occur. CC: Kirk French [...] | | | | | | [place] [address] | | | | | | [phone] | | | | | | | | +--------+ + + + + | 11/20/ | Implant | Cardiology | Daljit Singletary, | Remote Device | | 2019 | Monitor | | [facility] | Interrogation | | | | | [place], | (Primary Dx); | | | | | [place] [address] | Presence of | | | | | [phone] | permanent cardiac | | | | [...] 1.001 - 1.030 | | | | [place], | | | | | | UA, [...]
--- OUTSIDE RECORDS SUMMARY | ~2019-10-04 | XMS | Encounter Summary ---
Demographics + + + | Address | [address] | | | [place] [address] | + + + | Home Phone [...] Providers + +------+ + | Care Senior Informatica Developer Name | Role | Phone | + +------+ + PCP | Unavailable | + +------+ + Encounter Details +--------+ + + + + | Date | Type | Department | Care Team | Description | +--------+ + + + + | 09/29/ | Hospital | [facility] | | | | 1995 | Encounter | MED CTR EMERGENCY | | | | | | [place] [address] | | | | | | [place] | | | | | | [address] | | | | | | [phone] | | | +--------+ + + + [...] | | | | | | [place] [address] | | | | | | [phone] | | | | | | | | +--------+ + + + + | 11/20/ | Implant | Cardiology | Daljit Singletary, | Remote Device | | 2018 | Monitor | | [address] [facility] | Interrogation | | | | | [place], | (Primary Dx); | | | | | [place] [address] | Presence of | | | | | [phone] | permanent cardiac | | | | [...]
--- OUTSIDE RECORDS SUMMARY | ~2019-10-04 | XMS | Encounter Summary ---
Demographics + + + | Address | [address] | | | [place] [address] | + + + | Home Phone [...] Providers + +------+ + | Care Nutrition Assistant Name | Role | Phone | + +------+ + | Kirk French MD | PCP | | + +------+ + Encounter Details +--------+ + + + + | Date | Type | Department | Care Team | Description | +--------+ + + + + | 01/25/ | Emergency | [facility] | Donald Callahan, | Strain of lumbar | | 2016 | | MEDICAL CENTER | Russ, DO [address] | paraspinal muscle, | | | | EMERGENCY CENTER | [address] | initial encounter; | | | | [address] | [place], [place] | Left hip pain | | | | [place], [place] | [address] | | | | | [address] | | | | | | [phone] | | | +--------+ + + + [...] + + + +---------+ + + | [place]-3 Fatty | CAPS, one capsule by [...] | | | | | | [place] [address] | | | | | | [phone] | | | | | | | | +--------+ + + + + | 11/20/ | Implant | Cardiology | Daljit Singletary, | Remote Device | | 2019 | Monitor | | [place] [facility] | Interrogation | | | | | [place], | (Primary Dx); | | | | | [place] [address] | Presence of | | | | | [phone] | permanent cardiac | | | | [...] Conversion - 07/06/2019 12:12 AM PDT PINA [id number] years MaleXR | | LUMBAR SPINE LIMITED [...]
--- OUTSIDE RECORDS SUMMARY | ~2019-10-04 | XMS | Encounter Summary ---
Demographics + + + | Address | [address] | | | [place] [address] | + + + | Home Phone [...] Providers + +------+ + | Care Pharmacy Technology Instructor Name | Role | Phone [...] | MED CTR EXTERNAL | MD Sawyer [address] | | | | | IMAGING | Jay THORPE | | | | | [phone] | [place] [address] | | +--------+ + + + + [...] | | | | | | [place] [address] | | | | | | [phone] | | | | | | | | +--------+ + + + + | 11/20/ | Implant | Cardiology | Daljit Singletary, | Remote Device | | 2019 | Monitor | | [address] [facility] | Interrogation | | | | | [facility], | (Primary Dx); | | | | | [place] [address] | Presence of | | | | | [phone] | permanent cardiac | | | | [...] for comparison only - no result from [place]. | | + + + + +---------+ + + | Performing | Address | City/State/Zipcode | Phone Number | | Organization | | | | + +---------+ + + | [facility] | | | | + +---------+ + + documented in this encounter Visit Diagnoses Not on filedocumented in this encounter"
--- OUTSIDE RECORDS SUMMARY | ~2019-10-04 | XMS | Encounter Summary ---
Demographics + + + | Address | [address] | | | [place] [address] | + + + | Home Phone [...] Providers + +------+ + | Care Marketing Program Manager Name | Role | Phone [...] Eva ROUSE | | | | | [place], [place] | [address] | | | | | [address] | [place] [address] | | | | | [phone] | [phone] | | | | | | | [...] | | | | | | [place] [address] | | | | | | [phone] | | | | | | | | +--------+ + + + + | 11/20/ | Implant | Cardiology | Daljit Singletary, | Remote Device | | 2018 | Monitor | | [address] | Interrogation | | | | | [place], | (Primary Dx); | | | | | [place] [address] | Presence of | | | | | [phone] | permanent cardiac | | | | [...] | performed at [facility];[address] | 10*3/uL | LAB | | | | [address] | | | | | | [address];[place] [address] | | | | + + + [...] | | | | | Blvd;[place] [address] | | | | + + + [...] | | at [facility];[address] [facility] | | | | | | [facility];[place] | | | | | | [address] | | | | + + + [...]
--- OUTSIDE RECORDS SUMMARY | ~2019-10-04 | XMS | Encounter Summary ---
Demographics + + + | Address | [address] | | | [place] [address] | + + + | Home Phone [...] Providers + +------+ + | Care Interactive Designer Name | Role | Phone | [...] | | | | aortic | Janeen, SUPERINTENDENT DISTRIBUTION | [place], | | | | | aneurysm | [address] | [place] [address] | | | | | (HCC) | [place] | Phone: | | | | | Abdominal | [place], | [phone] | | | | | aortic | [place] | Fax: | | | | | aneurysm | [address] | [phone] | | | | | (AAA) | Phone: | | | | | | without | [phone] | | | | | | rupture | Fax: | | | | | | (HCC) | [phone] | | | | | | Procedures [...] | | unspecified | MD Martell | [address] [place] [address] | | | | | type ER | [address] | [address] | | | | | FUP | [place] | [place], | | | | | Procedures | [place], [place] | [place] [address] | | | | | FUP - SUW & | [address] | Phone: | | | | | MISHA PT, LAST | Phone: | [phone] | | | | | SEEN | [phone] | Fax: | | | | | 08-24-18 | Fax: | [phone] | | | | | | [phone] | | +--------+ + + + + + Encounter Details +--------+---------+ + + + | Date | Type | Department | Care Team | Description | +--------+---------+ + + + | 01/11/ | Office | [facility] | Silvia, | Coronary artery | | 2019 | Visit | CARDIOLOGY [address] | [place] [address] | disease involving | | | | [place], | [place], | [place]orvik coronary | | | | [place] [address] | [place] [address] | artery of [place] | | | | [phone] | [phone] | heart without angina | | | [...] encounter Patient Instructions Patient Instructions Christine Rodriguez, Cyber Forensic Specialist - 01/11/2019 12:45 PM PST 1. You [...] Check-in time: 1. Check in at the [facility]. 2. Do not [...] procedure. 6. Make sure you have a line driver to take you home. Your line driver will also need to sign you [...] hospital line at and ask for nursing power plant operators supervisor t o let them know you are cancelling . Blood test: Non-fasting Date Due: same day as CTA Where to go for labs: [facility]- [address] [facility] CTA of Chest and Abdomen: Date: [...] 3RD DOSE, CALL 911 100 tablet 3 [place]-3 Fatty Acids (SALMON OIL-1000 PO) CAPS, one capsule by mouth daily twice daily ondansetron (ZOFRAN ODT) 4 mg disintegrating tablet Take 4 mg by mouth. ONE TOUCH DELICA LANCETS [facility] [...] was found Confirmed by ANGELA MARADIAGA MD ([id number]) on 01/03/2019 8:10:39 PM LAB RESULTS reviewed [...] reviewed reports from [facility]: Xr Chest Ap Portable [...] ASSESSMENT: 1. Non-critical Coronary artery disease involving [place] coronary artery of [place] heart wi out angina pectoris: A. Normal [...] Symptoms with moderate exertion of t he [place] Heart Ass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 Heart failure stage [...] go back in 3 days t o [place] for an attempt of ablation under general [...] he has any further problems Christine Clemente Cyber Forensic Specialist am acting as a scribe on behalf of, and in the pres ence of PARISA Lomas. - Reji Newman 01/11/2019 13:46 IJaneen ARNP, personally performed the services described in this documentati on, as scribed in my presence and it is both accurate and complete. -PARISA Lomas 01/11/2019 Portions of this chart may have been created with [employer] voice recognition software. Occasi onal wrong-word or [...] | | | | | | [place] [address] | | | | | | [phone] | | | | | | | | +--------+ + + + + | 11/20/ | Implant | Cardiology | Daljit Singletary, | Remote Device | 2018 | Monitor | | [facility] | Interrogation | | | | | [place], | (Primary Dx); | | | | | [place] [address] | Presence of | | | | | [phone] | permanent cardiac | | | | [...] noorvik heart without | | angina pectoris - [...]
--- OUTSIDE RECORDS SUMMARY | ~2019-10-04 | XMS | Encounter Summary ---
Demographics + + + | Address | [address] | | | [place] [address] | + + + | Home Phone [...] Team Providers + +------+ + | Care Medicaid Eligibility Specialist Name | Role | Phone | + +------+ + | Kirk French MD | PCP | | + +------+ + Encounter Details +--------+---------+ + + + | Date | Type | Department | Care Team | Description | +--------+---------+ + + + | 01/25/ | Surgery | [facility] | Daljit Singletary, | CV LHC | | 2019 | | MED CTR CV INTRA OP | MD [address] | | | | | [address] | [address] [place], | | | | | [place] | [place] [address] | | | | | [address] | [phone] | | | | | [phone] | | | +--------+---------+ + + + [...] by your healthcare provider Date Last Reviewed: 09/22/201619994107-1947 [employer]. [address] [place] [address]. All righ ts reserved. This information is [...] | | | | | | [place], | | | | | | [place] [address] | | | | | | [phone] | | | | | | | | +--------+ + + + + | 11/20/ | Implant | Cardiology | Daljit Singletary, | Remote Device | | 2018 | Monitor | | [facility] | Interrogation | | | | | [place], | (Primary Dx); | | | | | [place] [address] | Presence of | | | | | [phone] | permanent cardiac | | | | [...] (1960) MEDICAL RECORD NUMBER: | | | [id number] OF PROCEDURE: 01/25/2019 CIRCULATION LIBRARIAN: Daljit | | | MD Gemini PROCEDURES [...] Sanchez, (1960) | | OF PROCEDURE: 01/25/2019PRIMARY TOOL POLISHING MACHINE OPERATOR: Daljit Singletary MD PROCEDURES | [...] | Aggressive medical management. | | at 9:33PRREPLACED BY [facility] ANSONRY CARE PROVIDER:Kirk French MDFor additional detail as [...] or lesion | | type, unspecified whether noorvik or transplanted heart | + + documented [...]
--- OUTSIDE RECORDS SUMMARY | ~2019-10-04 | XMS | Encounter Summary ---
Demographics + + + | Address | [address] | | | [place] [address] | + + + | Home Phone [...] Team Providers + +------+ + | Care Grommet Worker Name | Role | Phone | [...] + + | 06/18/ | Emergency | [facility] | Dom Graham, | Cervical pain (neck) | | 2013 | | MED CTR EMERGENCY | MD [address] | (Primary Dx); | | | | CENTER [address] | [place] | Paresthesia and pain | | | | [place], [place] | [address] | of both upper | | | | [address] | | extremities | | | | [phone] | | | +--------+ + + + [...] cannot be sent through Care Everywhere.PARAESTHESIAS ( TURKS AND CAICOS ISLANDER)NECK SPRAIN/STRAIN (TURKS AND CAICOS ISLANDER)documented in this encounter Medications at Time [...] + + +---------+ + + | [place]-3 Fatty | CAPS, one capsule by [...] | | | | | | [place] [address] | | | | | | [phone] | | | | | | | | +--------+ + + + + | 11/20/ | Implant | Cardiology | Daljit Singletary, | Remote Device | | 2018 | Monitor | | MD Chiquis Oro | Interrogation | | | | | [facility] [place], | (Primary Dx); | | | | | [place] [address] | Presence of | | | | | [phone] | permanent cardiac | | | | [...] + | MISCELLANEOUS LAB | | | [phone] | + +---------+ + + | MISCELANIOUS LAB | | | [phone] | + +---------+ + + documented in this encounter Visit Diagnoses + + | Diagnosis | + + | Cervical pain (neck) - Primary Cervicalgia | + + | Paresthesia and pain of both upper extremities Disturbance of skin sensation | + + documented in this encounter
--- OUTSIDE RECORDS SUMMARY | ~2019-10-04 | XMS | Encounter Summary ---
Demographics + + + | Address | [address] | | | [place] [address] | + + + | Home Phone [...] Providers + +------+ + | Care Material Reprocessing Associate Name | Role | Phone | [...] | SR | | | | | [phone] | | | +--------+ + + + [...] | | | | | | [place] [address] | | | | | | [phone] | | | | | | | | +--------+ + + + + | 11/20/ | Implant | Cardiology | Daljit Singletary, | Remote Device | | 2019 | Monitor | | [place] [address] [facility] | Interrogation | | | | | [place], | (Primary Dx); | | | | | [place] [address] | Presence of | | | | | [phone] | permanent cardiac | | | | [...]
--- OUTSIDE RECORDS SUMMARY | ~2019-10-04 | XMS | Encounter Summary ---
Demographics + + + | Address | [address] | | | [place] [address] | + + + | Home Phone [...] Team Providers + +------+ + | Care Phys Assistant Name | Role | Phone | [...] + | 01/05/ | Office | [facility] | [place]via, | Pacemaker - | | 2018 | Visit | CARDIOLOGY [address] | PAR[place] [address] | Medtronic - [id number] | | | | [place], | [place], | [place] Implanted | | | | [place] [address] | [place] [address] | 06/14/2009 (Primary | | | | [phone] | [phone] | Dx); Chest pain, | | | [...] involving | | | | | | marshall coronary | | | | | | artery of marshall | | | | | | heart [...] of non-critical coronary artery d isease involving marshall coronary artery of marshall heart without angina pectoris, essential h ypertension, [...] pain. He went to the ER in [place] because th e NTG didn't relieved the pain. He was diagnosed with bronchitis. Otherwise he has had no ot her symptoms. He has had a good energy level. He tries to stay active. He has joined a [employer] gym and trying to exercise more often. [...] Preventative health care Coronary artery disease involving marshall coronary artery of marshall heart without angina pectoris Cannabis abuse, daily [...] 3RD DOSE, CALL 911 100 tablet 3 [place]-3 Fatty Acids (SALMON OIL-1000 PO) CAPS, one capsule by mouth daily twice daily ONE TOUCH DELICA LANCETS [facility] Check glucose as needed for [...] RESULTS reviewed during visit today primarily from [facility]: LIPID Lab Results Component Value Date TRIG [...] 131 (A) 10/18/2017 I reviewed records from [facility] for office visit on 01/2017 whic h [...] overload. 2. Non-critical Coronary artery disease involving marshall coronary a rtery of marshall heart without angina pectoris: A. Normal exercise [...] to go back in 3 days to [place] for an attempt of ablation under general [...] this chart may have been created with [employer] voice recognition software. Occasi onal wrong-word or [...] | | | | | | [place] [address] | | | | | | [phone] | | | | | | | | +--------+ + + + + | 11/20/ | Implant | Cardiology | Sydni Singletary, | Remote Device | | 2019 | Monitor | | MD [facility] | Interrogation | | | | | [place], | (Primary Dx); | | | | | [place] [address] | Presence of | | | | | [phone] | permanent cardiac | | | | [...] involving | | | | | | marshall coronary | | | | | | artery of marshall | | | | | | heart [...] SYDNI | | | | | | ([id number]) on 01/06/2018 | | | | | [...] artery disease involving marshall coronary artery of marshall heart without | | angina pectoris | + + | Hyperlipidemia, mixed Mixed hyperlipidemia | + + | Hypertension, unspecified type | + + | Syncope, unspecified syncope type | + + | Ascending thoracic aortic aneurysm (HCC) Thoracic aneurysm without mention of rupture | + + documented in this encounter
--- OUTSIDE RECORDS SUMMARY | ~2019-10-04 | XMS | Encounter Summary ---
Demographics + + + | Address | [address] | | | [place] [address] | + + + | Home Phone [...] Providers + +------+ + | Care Information And Referral Director Name | Role | Phone | + +------+ + PCP | Unavailable | + +------+ + Encounter Details +--------+ + + + + | Date | Type | Department | Care Team | Description | +--------+ + + + + | 06/14/ | [facility] | [facility] | Kennethshaistatesha Shaistakenneth, | | | 2008 - | Encounter | MED CTR MP INTRA OP | [address] | | | | | [address] | [address] [place], | | | 06/15/ | | [place] | [place] [address] | | | 2008 | | [address] | [phone] | | | | | [phone] | | | +--------+ + + + [...] | | | | | | [place], | | | | | | [place] [address] | | | | | | [phone] | | | | | | | | +--------+ + + + + | 11/20/ | Implant | Cardiology | Daljit Singletary, | Remote Device | | 2019 | Monitor | | MD [address] | Interrogation | | | | | [place], | (Primary Dx); | | | | | [place] [address] | Presence of | | | | | [phone] | permanent cardiac | | | | [...]
--- OUTSIDE RECORDS SUMMARY | ~2019-10-04 | XMS | Encounter Summary ---
Demographics + + + | Address | [address] | | | [place] [address] | + + + | Home Phone [...] + +------+ + | Care Director Of Marketing And Promotions Name | Role | Phone | + [...] + | 01/03/ | Office | [facility] | [place], | CAD (coronary artery | | 2012 | Visit | CARDIOLOGY [address] | Janeen, EDITOR SOUND [address] | disease) (Primary | | | | [place], | [place], | Dx); Bradycardia; | | | | [place] [address] | [place] [address] | HTN (hypertension); | | | | [phone] | [phone] | Lightheadedness | | | | | [...] tablet Take 1,000 mg by mouth Daily. [place]-3 Fatty Acids (SALMON OIL-1000 PO) CAPS, one [...] himself t o the emergency department at [facility] in [place], [place]. EKG showed normal s inus rhythm [...] Refer patient to an electrophysiology specialist in [place] for further evaluation for P VC's ablation. I have given verbal instructions and written material for patient to read mo re about the procedure. 2. Check blood pressure and pulse twice daily for two weeks and return the log to our offic e. 3. Followup appointment after patient's appointment with security systems specialist/ablation. IJaneen ARNP, saw this patient under the direct supervision of Daljit Singletary MD Portions of this report were transcribed using voice recognition software. Every effort wa s made to ensure accuracy; however, inadvertent computerized research physicist errors may be pre sent. documented in this encounter Plan of Treatment +--------+ + + + + | Date | Type | Specialty | Care Team | Description | +--------+ + + + + | 11/09/ | Office | Cardiology | Silvia, | | | 2018 | Visit | | PARISA [place] [address] | | | | | | [place], | | | | | | [place] [address] | | | | | | [phone] | | | | | | | | +--------+ + + + + | 11/20/ | Implant | Cardiology | Daljit Singletary, | Remote Device | | 2018 | Monitor | | MD [address] [place] [address] | Interrogation | | | | | [place], | (Primary Dx); | | | | | [place] [address] | Presence of | | | | | [phone] | permanent cardiac | | | | [...] of unspecified type | | of vessel, [place] or graft | + + | Bradycardia Other specified cardiac dysrhythmias | + + | HTN (hypertension) Unspecified essential hypertension | + + | Lightheadedness Dizziness and giddiness | + + documented in this encounter
--- OUTSIDE RECORDS SUMMARY | ~2019-10-04 | XMS | Encounter Summary ---
Demographics + + + | Address | [address] | | | [place] [address] | + + + | Home Phone [...] Providers + +------+ + | Care Client Experience Consultant Name | Role | Phone | [...] + | 04/12/ | Telephone | [facility] | Daljit Singletary, | Other (issues with | | 2017 | | CARDIOLOGY [address] | MD [address] [place] | low blood pressure | | | | [place], | [place], | and dizziness) | | | | [place] [address] | [place] [address] | | | | | [phone] | [phone] | | | | | | | [...] | | | | | | [place] [address] | | | | | | [phone] | | | | | | | | +--------+ + + + + | 11/20/ | Implant | Cardiology | Daljit Singletary, | Remote Device | | 2018 | Monitor | | [address] [place] | Interrogation | | | | | [place], | (Primary Dx); | | | | | [place] [address] | Presence of | | | | | [phone] | permanent cardiac | | | | [...]
--- OUTSIDE RECORDS SUMMARY | ~2019-10-04 | XMS | Encounter Summary ---
Demographics + + + | Address | [address] | | | [place] [address] | + + + | Home Phone [...] Providers + +------+ + | Care Public Records Officer Name | Role | Phone | [...] | | | | CENTER [address] | [address] [place] | | | | | [place], [place] | [place] [address] | | | | | [address] | [phone] | | | | | [phone] | | | +--------+ + + + [...] sent through Care Everywhere.Diarrhea, Unkno wn Cause (Armenian)documented in this encounter Medications at [...] | | | | | | | [place] coronary | | | | | | | artery of [place] | | | | | | | [...] | | | | | | [place], | | | | | | [place] [address] | | | | | | [phone] | | | | | | | | +--------+ + + + + | 11/20/ | Implant | Cardiology | Daljit Singletary, | Remote Device | | 2018 | Monitor | | [address] | Interrogation | | | | | [place], | (Primary Dx); | | | | | [place] [address] | Presence of | | | | | [phone] | permanent cardiac | | | | [...] W?MRN: | | | | | | [id number] | | | [id number] | | | riteri | | | [...] | | | St. | | | [place] | | | y | | | [...] | | | St. | | | [place] | | | y | | | [...] | | | St. | | | [place] | | | y H. | | [...] | | | St. | | | [place] | | | y H. | | [...] | | | M.D. | | | Band Booker | | | al | | | [...] | | | ent/60 | | | [id number] | | | -5586- | | | [...] | | | Lavender | | | [facility] | | | Top Tube | | [...] [address] | [place] | [phone] | | [facility] | | [address] | | | - LABORATORY | | [...] [address] | [place] | [phone] | | [facility] | | [address] | | | - LABORATORY | | [...] + | [facility] | [address] | [place] | [phone] | | [facility] | | [address] | | | - LABORATORY | | [...] + | [address] | [address] | [place] | [phone] | | [facility] | | [address] | | | - LABORATORY | | [...] [address] | [place] | [phone] | | [facility] | | [address] | | | - LABORATORY | | [...] 10 | 9 - 23 mg/dL | [facility] | | | | | | [facility] | | | | | | MEDICAL | | | | | | CENTER - | | | | | | LABORATORY | | + + + + + + | Creatinine | 0.96 | 0.70 - 1.30 | [facility] | | | | | mg/dL | [facility] | | | | | | MEDICAL | | | | | | CENTER - | | | | | | LABORATORY | | + + + + + + | eGFR if not | >60Comment: GLOMERULAR | >=60 | [facility] | | | | FILTRATION | mL/min/1.73m2 | [facility] [place] | | | SAMOAN | RATE,ESTIMATED | | MEDICAL | | | | mL/min/1.37f2Bpca than | | CENTER - | | [...] [address] | [place] | [phone] | | [facility] | | [address] | | | - LABORATORY | | [...] [address] | [place] | [phone] | | [facility] | | [address] | | | - LABORATORY | | [...] - 1.030 | [facility] | | | [place] | | | [facility] | | [...] ST. | [address] | [place], [place] | [phone] | | [facility] | | [address] | | | - LABORATORY | | [...]
--- OUTSIDE RECORDS SUMMARY | ~2019-10-04 | XMS | Encounter Summary ---
Demographics + + + | Address | [address] | | | [place] [address] | + + + | Home Phone [...] Team Providers + +------+ + | Care Poll Watcher Name | Role | Phone | + +------+ + | Michael Amanda DO | PCP | | + +------+ + Encounter Details +--------+ + + + + | Date | Type | Department | Care Team | Description | +--------+ + + + + | 01/30/ | Hospital | [facility] | Jay Gambino MD | | | 2012 - | Encounter | [facility] | [address] | | | | | CARDIAC TELEMETRY | [address] [place], | | | 01/31/ | | [address] | [place] [address] | | | 2012 | | [place] | [phone] | | | | | [address] | | | | | | [phone] | | | +--------+ + + + [...] 1960 ADMISSION DATE: 01/30/2013 DISCHARGE DATE: 01/31/2013 [id number] / [id number] ADMITTING DIAGNOSES: 1. Symptomatic PVCs. 2. Sinus [...] 150, 1 to 2 tabs daily. 10. Elysian-3 fatty acids 1000 mg b.i.d. MOE GAY ADM:01/30/13 [id number] 01/31/13 [place] DISCHARGE SUMMARY [id number] [facility] Carmela Cuevas PAC B [facility] MD Meena Pleitez THIS REPORT IS CONFIDENTIAL AND NOT TO BE RELEASED WITHOUT PROPER AUTHORIZATION. [facility] 11. Valacyclovir 500 mg daily. B. New medication added: Diltiazem CD 180 a day. FOLLOWUP: The patient has a followup appointment on 03/02/2013 at 10:[address] Niles meza at the [facility], [address]. No heavy lifting or driving times 48 hours. YOANA Barlow MD A P [facility] #[id number] cc: MD Carmela Pleitez PA-C Electronically Signed 02/06/13 1616 LAKESHIA Barlow Electronically Signed 02/20/13 0731 Jay Gambino MD MOE GAY ADM:01/30/13 [id number] 01/31/13 DIS [place] DISCHARGE SUMMARY [id number] [facility] LAKESHIA Barlow B [facility] Jay Gambino MD R THIS REPORT IS CONFIDENTIAL AND NOT TO BE RELEASED WITHOUT PROPER AUTHORIZATION.Electronica lly signed by Jael Brown at 02/20/2013 7:31 AM FRANCYZzCarmela Moncada - 02/01/20 13 8:44 AM PDT PATIENT NAME: MOE GAY Sex/Age: M / 52Y : 1960 ADMISSION DATE: 01/30/2013 DISCHARGE DATE: 01/31/2013 [id number] / [id number] ADMITTING DIAGNOSES: 1. Symptomatic PVCs. 2. Sinus [...] 150, 1 to 2 tabs daily. 10. Elysian-3 fatty acids 1000 mg b.i.d. MOE GAY ADM:01/30/13 [id number] 01/31/13 DIS [place] DISCHARGE SUMMARY [id number] [facility] LAKESHIA Barlow B [facility] MD Meena Pleitez THIS REPORT IS CONFIDENTIAL AND NOT TO BE RELEASED WITHOUT PROPER AUTHORIZATION. [facility] 11. Valacyclovir 500 mg daily. B. New medication added: Diltiazem CD 180 a day. FOLLOWUP: The patient has a followup appointment on 03/02/2013 at 10:[address] Niles meza at the [facility], [address]. No heavy lifting or driving times 48 hours. YOANA Barlow MD A P [facility] #[id number] cc: MD Carmela Pleitez PA-C Electronically Signed 02/06/13 1616 LAKESHIA Barlow MOE GAY ADM:01/30/13 [id number] 01/31/13 DIS [place] DISCHARGE SUMMARY [id number] [facility] LAKESHIA Barlow ES B [facility] Jay Gambino MD R THIS REPORT IS [...] + + + +---------+ + + | Elysian-3 Fatty | CAPS, one capsule by | [...] | | | | | | [place] [address] | | | | | | [phone] | | | | | | | | +--------+ + + + + | 11/20/ | Implant | Cardiology | Daljit Singletary, | Remote Device | | 2019 | Monitor | | [address] [facility] [place] | Interrogation | | | | | [place], | (Primary Dx); | | | | | [place] [address] | Presence of | | | | | [phone] | permanent cardiac | | | | [...] [address] [facility] [address] | [place] [address] | | | [facility] | [...] + | YESSY JONES | [address] | [place] [address] | | | [facility] | [...] + | Glucose | 113 (H)Comment: British | 65 - 99 mg/dL | [facility] | | | | Diabetes [...] + | YESSY JONES | [address] | [place] [address] | | | [facility] | | | | | LABORATORY | | | | + + + + + | Y[place]Y [place] | | | | | [facility] | | | | | LABORATORY | | | | + + + + + documented in this encounter Visit Diagnoses Not on filedocumented in this encounter"
--- OUTSIDE RECORDS SUMMARY | ~2019-10-04 | XMS | Encounter Summary ---
Demographics + + + | Address | [address] | | | [place] [address] | + + + | Home Phone [...] Providers + +------+ + | Care Visual Developer Name | Role | Phone | [...] W | hypertension | | | | [place], | [place], | (Primary Dx); | | | | [place] [address] | [place] [address] | Coronary artery | | | | [phone] | [phone] | disease involving | | | | | | flandreau [...] emergency room at [facility] on 08/23/20 15 and the ER physician reviewed his chart saying that there were 2 ultrasounds from [facility] both of them are clear of DVT but reveal some venous insufficiency. Today, arian ent tells me that he started having swelling in both his feet within a week when he got to [facility]. He had extensive traveling. He went [...] Preventative health care Coronary artery disease involving flandre[place] coronary artery without angina pectoris Cannabis abuse, [...] by mouth every evening. 90 tablet 3 [facility] [...] 3rd dose, call 911 100 tablet 3 Kirk-3 Fatty Acids (SALMON OIL-1000 PO) CAPS, one [...] Daily. to reduce urinary frequenc y Lot #[id number], exp 07/2016 (Patient taking differently: Take 8 mg by mouth Daily. PATIENT STA YOSELIN NO LONGER TAKING THIS MEDICATION. STATED ON 08/29/2015. to reduce urinary frequency Lot #[id number], exp 07/2016) 21 capsule 0 Specialty Vitamins [...] PLTEX 163 07/26/2014 I reviewed [facility] [...] emergency room at [facility] and according to the not es they [...] to go back in 3 days to [facility] for an attempt of ablation under general [...] dizziness. He is in class I-II of [place] 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 T here are [...] this chart may have been created with [employer] voice recognition software. Occasi onal wrong-word [...] | | | | | | [place], | | | | | | [place] [address] | | | | | | [phone] | | | | | | | | +--------+ + + + + | 11/20/ | Implant | Cardiology | Sydni Singletary, | Remote Device | | 2019 | Monitor | | [address] [place] | Interrogation | | | | | [place], | (Primary Dx); | | | | | [place] [address] | Presence of | | | | | [phone] | permanent cardiac | | | | [...] the | | | | PDT | flandreau coronary | results section. | | | [...] HISTORY: DVT. COMPARISON: None. TECHNIQUE: Compression | [facility] | | sonography was performed [...] conveyed to the ordering provider, by the assurance specialist, | | | immediately following the [...] to the ordering provider, by the | |assurance specialist, immediately following the exam. | | [...] | [address] | [place] | [phone] | | [facility] | | [address] | | | - IMAGING | | [...] MD | | | | | | ([id number]) on 08/29/2015 | | | | | [...] + + | Coronary artery disease involving flandreau coronary artery without angina pectoris | + + | DVT (deep venous thrombosis), bilateral | + + documented in this encounter
--- OUTSIDE RECORDS SUMMARY | ~2019-10-04 | XMS | Encounter Summary ---
Demographics + + + | Address | [address] | | | [place] [address] | + + + | Home Phone [...] Providers + +------+ + | Care Manager Flight Name | Role | Phone | [...] Provider Unknown | | | | | [place], [place] | [phone] | | | | | [address] | | | | | | [phone] | | | +--------+ + + + [...] + + + +---------+ + + | [place]-3 Fatty | CAPS, one capsule by [...] W | | | | | | [place], | | | | | | [place] [address] | | | | | | [phone] | | | | | | | | +--------+ + + + + | 11/20/ | Implant | Cardiology | Daljit Singletary, | Remote Device | | 2018 | Monitor | | MD [address] [place] | Interrogation | | | | | [place], | (Primary Dx); | | | | | [place] [address] | Presence of | | | | | [phone] | permanent cardiac | | | | [...]
--- OUTSIDE RECORDS SUMMARY | ~2019-10-04 | XMS | Encounter Summary ---
Demographics + + + | Address | [address] | | | [place] [address] | + + + | Home Phone [...] + + | 09/09/ | Office | [facility] | Michael Amanda, | Hyperlipidemia; | | 2011 | Visit | [facility] [place] | DO [address] | Hypertension; | | | | [address] | [place] | Chronic pain | | | | [place] | [address] | syndrome; Neck pain, | | | | [address] | | chronic | | | | [phone] | | | +--------+---------+ + + + [...] damage history No ASHD (either angina; prior HI; prior CABG) No cardiac end organ damage [...] slowly cutting back. Pt was going through [facility] for opiate medications prior to [...] | | | | | | [place] [address] | | | | | | [phone] | | | | | | | | +--------+ + + + + | 11/20/ | Implant | Cardiology | Daljit Singletary, | Remote Device | | 2019 | Monitor | | MD [address] [facility] | Interrogation | | | | | [place], | (Primary Dx); | | | | | [place] [address] | Presence of | | | | | [phone] | permanent cardiac | | | | [...]
--- OUTSIDE RECORDS SUMMARY | ~2019-10-04 | XMS | Encounter Summary ---
Demographics + + + | Address | [address] | | | [place] [address] | + + + | Home Phone [...] Providers + +------+ + | Care Horse Stud Manager Name | Role | Phone | [...] W | Dx) | | | | JENKINS [address] | [address] [place] | | | | | [place], [place] | [place] [address] | | | | | [address] | [phone] | | | | | [phone] | | | +--------+ + + + [...] | | | | | | [place] [address] | | | | | | [phone] | | | | | | | | +--------+ + + + + | 11/20/ | Implant | Cardiology | Daljit Singletary, | Remote Device | | 2019 | Monitor | | MD [address] [facility] | Interrogation | | | | | [place], | (Primary Dx); | | | | | [place] [address] | Presence of | | | | | [phone] | permanent cardiac | | | | [...] W?MRN: | | | | | | [id number] | | | [id number] | | | his | | | [...] | | | ent/60 | | | [id number] | | | -5586- | | | [...] | | | St. | | | [place] | | | y H. | | [...] | | | St. | | | [place] | | | y H. | | [...] | | | St. | | | [place] | | | y H. | | [...] | | | St. | | | [place] | | | y H. | | [...] | | | St. | | | [place] | | | y | | | [...] | | | ext. | | | [address] | | | or go | | [...] + | [facility] | [address] | [place] | [phone] | | [facility] | | [address] | | | - LABORATORY | | [...] + | [address] | [address] | [place] | [phone] | | [facility] | | [address] | | | - LABORATORY | | [...] mL/min/1.73m2 | [facility] | | | GUINEAN | RATE,ESTIMATED | | MEDICAL | | | | mL/min/1.95t6Syjp than | | CENTER - | | [...] [address] | [place] | [phone] | | [facility] | | [address] | | | - LABORATORY | | [...] [address] | [place] | [phone] | | [facility] | | [address] | | | - LABORATORY | | | | + + + + + documented in this encounter Visit Diagnoses + + | Diagnosis | + + | Bronchitis - Primary Bronchitis, not specified as acute or chronic | + + documented in this encounter"
--- OUTSIDE RECORDS SUMMARY | ~2019-10-04 | XMS | Encounter Summary ---
Demographics + + + | Address | [address] | | | [place] [address] | + + + | Home Phone [...] Providers + +------+ + | Care Water Chemist Name | Role | Phone | [...] [place] | | | | | [place] | | [address] Phone: | | | | | CYSTO/URETER | | [phone] | | | | | O | | Fax: | | | | | W/LITHOTRIPS | | [phone] | | | | | Y &INDWELL [...] | | | | | [address] | [place] | | | | | [place] | [address] | | | | | [address] | | | | | | [phone] | | | +--------+ + + + [...] +----+---+ + + | | 0 | Adams | | | | 8 | 43-degrees | | | | 2 | | | | | 7 | | | +----+---+ + + | | 0 | First | | | | 8 | Inc/Proc St | | | | 2 | | | | | 8 | | | +----+---+ + + | | 0 | [place] off | | | | 9 | [...] 04/13/19 1219 by | | eral | vkiv-dfx-kdjuos catheter system; | Dominga Steen RN | [...] | | | | | | [place] [address] | | | | | | [phone] | | | | | | | | +--------+ + + + + | 11/20/ | Implant | Cardiology | Daljit Singletary, | Remote Device | | 2018 | Monitor | | MD [address] | Interrogation | | | | | [address] [place], | (Primary Dx); | | | | | [place] [address] | Presence of | | | | | [phone] | permanent cardiac | | | | [...] | | | | | Starting [facility] 04/13/19 at 0823, | | AM PDT [...]
--- OUTSIDE RECORDS SUMMARY | ~2019-10-04 | XMS | Encounter Summary ---
Demographics + + + | Address | [address] | | | [place] [address] | + + + | Home Phone [...] + + | 01/03/ | Telephone | [facility] | Emmanuel Daniel MD | Results, Pathology | | 2018 | | GASTROENTEROLOGY | [address], [place] | (egd,colon) | | | | [address] [place] | [address] [place], [place] | | | | | [address] [place], [place] | [address] | | | | | [address] | | | | | | [phone] | | | +--------+ + + + [...] W | | | | | | [place], | | | | | | [place] [address] | | | | | | [phone] | | | | | | | | +--------+ + + + + | 11/20/ | Implant | Cardiology | Daljit Singletary, | Remote Device | | 2018 | Monitor | | MD [address] | Interrogation | | | | | [place], | (Primary Dx); | | | | | [place] [address] | Presence of | | | | | [phone] | permanent cardiac | | | | [...]
--- OUTSIDE RECORDS SUMMARY | ~2019-10-04 | XMS | Encounter Summary ---
Demographics + + + | Address | [address] | | | [place] [address] | + + + | Home Phone [...] Team Providers + +------+ + | Care Muleser Name | Role | Phone | + [...] + + | 12/23/ | Telephone | [facility] | Emmanuel Daniel MD | Other (Needs to know | | 2017 | | GASTROENTEROLOGY | [address], [place] | what he can eat | | | | [address] [place] | [address] [place], [place] | today) | | | | [address] [place], [place] | [address] | | | | | [address] | | | | | | [phone] | | | +--------+ + + + [...] | | | | | | [place] [address] | | | | | | [phone] | | | | | | | | +--------+ + + + + | 11/20/ | Implant | Cardiology | Daljit Singletary, | Remote Device | | 2018 | Monitor | | MD [address] | Interrogation | | | | | [place] [place], | (Primary Dx); | | | | | [place] [address] | Presence of | | | | | [phone] | permanent cardiac | | | | [...]
--- OUTSIDE RECORDS SUMMARY | ~2019-10-04 | XMS | Encounter Summary ---
Demographics + + + | Address | [address] | | | [place] [address] | + + + | Home Phone [...] + + + + | 02/07/ | [facility] | [facility] | Unknown, | | | 1995 | Encounter | MED CTR XRAY [address] | MD Stefany | | | | | [place] [place] | | | | | | [place] [address] | (Fax) | | | | | [phone] | | | +--------+ + + + [...] | | | | | | [place] [address] | | | | | | [phone] | | | | | | | | +--------+ + + + + | 11/20/ | Implant | Cardiology | Daljit Singletary, | Remote Device | | 2019 | Monitor | | [facility] | Interrogation | | | | | [address] [place], | (Primary Dx); | | | | | [place] [address] | Presence of | | | | | [phone] | permanent cardiac | | | | [...]
--- OUTSIDE RECORDS SUMMARY | ~2019-10-04 | XMS | Encounter Summary ---
Demographics + + + | Address | [address] | | | [place] [address] | + + + | Home Phone [...] Providers + +------+ + | Care Railroad Accountant Name | Role | Phone | + +------+ + PCP | Unavailable | + +------+ + Encounter Details +--------+ + + + + | Date | Type | Department | Care Team | Description | +--------+ + + + + | 05/28/ | [facility] | [facility] | Evan Gandara MD | | | 2008 | Encounter | MED CTR LABORATORY | [address] [facility] | | | | | [address] | [place] | | | | | [place] | [address] | | | | | [address] | | | | | | [phone] | | | +--------+ + + + [...] | | | | | | [place] [address] | | | | | | [phone] | | | | | | | | +--------+ + + + + | 11/20/ | Implant | Cardiology | Daljit Singletary, | Remote Device | | 2019 | Monitor | | MD [address] | Interrogation | | | | | [place] [place], | (Primary Dx); | | | | | [place] [address] | Presence of | | | | | [phone] | permanent cardiac | | | | [...]
--- OUTSIDE RECORDS SUMMARY | ~2019-10-04 | XMS | Encounter Summary ---
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, PATTERN RULER | [address] | | | | | node | [address] | [place], | | | | | dysfunction | [place] | [place] | | | | | (HCC) | [place], [place] | [address] | | | | | Coronary | [address] | Phone: | | | | | artery | Phone: | [phone] | | | | | disease | [phone] | Fax: | | | | | involving | Fax: | [phone] | | | | | [place] | [phone] | | | | | | coronary | | | | | | | artery of | | | | | | | [place] heart | | | | | | [...] | | | | | | Complete [place] | | | | | | | ECHO HEART | | | | | | | XTHORACIC,[place] | | | | | | | MPLETE W | | | | | | | DOPPLER [place] | | | | | | | [...] | Visit | CARDIOLOGY [address] | PATTERN RULER [address] | dysfunction (HCC) | | | | [address] [place], | [place] | with symptomatic | | | | [place] [address] | [address] | bradycardia (Primary | | | | [phone] | | Dx); Coronary | | | | | | artery disease | | | | | | involving [place] | | | | | | coronary artery of | | | | | | [place] heart without | | | | | [...] 3rd dose, call 911 100 tablet 3 [place]-3 Fatty Acids (SALMON OIL-1000 PO) CAPS, [...] scanned Paceart documentation and device PDF in Meeting[employer] for interrogation (with progr amming changes) performed [...] to go back in 3 days to [place] for an attempt of ablation under general [...] this chart may have been created with [employer] voice recognition software. Occasi onal wrong-word or [...] | | | | | | [place] [address] | | | | | | [phone] | | | | | | | | +--------+ + + + + | 11/20/ | Implant | Cardiology | Sydni Singletary, | Remote Device | 2018 | Monitor | | MD Sim [facility] | Interrogation | | | | | [facility] [place], | (Primary Dx); | | | | | [place] [address] | Presence of | | | | | [phone] | permanent cardiac | | | | [...] VICTOR HUGO | [facility] | | HILDEBRAN Room Number SARAH Patient | [facility] | | [id number] Date of Study 06/16/2016 Number | - IMAGING | | Visit Number [id number] | | | Referring Physician HELLBERG JOSE Number Date of 1960 | | | Hood Fitter LUIS FERNANDO DUARTE Age | | | 56 year(s) Interpreting | | | GURJIT TROY | | | Wage And Salary Specialist SYDNI S[place], | | | Gender | | | Male Nurse Procedure Type of Study TTE | | | procedure: ECHO Complete. Procedure dateDate: 06/16/2016Start: 10:55 | | | AM Technical Quality: Adequate visualizationStudy Location: Echo | | | LabIndications: CAD DIOMEDE CORONARY ARTERY 414.01/ I25.10 and | | [...] | (TTE) Demographics Patient Name VICTOR HUGO BRARY Room Number SARAH | | Patient [id number] Date of Study 06/16/2016 Number Visit Number | | [id number] Referring Physician JOSE ARMANDO GARCIA Number | | Date of 1960 Hood Fitter LUIS FERNANDO DUARTE Age | | 56 year(s) Interpreting GURJIT TROY | | Wage And Salary Specialist SYDNI SINGLETARY, | | Gender Male NurseProcedureType of Study TTE | | procedure: ECHO Complete.Procedure dateDate: 07/26/2016Start: 10:55 AMTechnical Quality: | | Adequate visualizationStudy Location: Echo LabIndications: CAD DIOMEDE CORONARY ARTERY | | 414.01/ I25.10 and [...] [address] | [address] | [place] | [phone] | | [facility] | | [id number] | | | - IMAGING | | [...] | | 2. Coronary artery disease involving [place] coronary artery of | | | [place] heart without angina pectoris I25.10 414.01 ECHO [...] Coronary artery disease involving [place] coronary artery of [place] heart without | | angina pectoris | [...]
--- OUTSIDE RECORDS SUMMARY | ~2019-10-04 | XMS | Encounter Summary ---
Demographics + + + | Address | [address] | | | [place] [address] | + + + | Home Phone [...] +------+ + | Care Family Day Care Worker Name | Role | Phone | [...] [address] | | | | | [place], | [place], | | | | | [place] [address] | [place] [address] | | | | | [phone] | [phone] | | | | | | | [...] | | | | | | [place] [address] | | | | | | [phone] | | | | | | | | +--------+ + + + + | 11/20/ | Implant | Cardiology | Daljit Singletary, | Remote Device | | 2018 | Monitor | | [address] [facility] | Interrogation | | | | | [place], | (Primary Dx); | | | | | [place] [address] | Presence of | | | | | [phone] | permanent cardiac | | | | [...]
--- OUTSIDE RECORDS SUMMARY | ~2019-10-04 | XMS | Encounter Summary ---
Demographics + + + | Address | [address] | | | [place] [address] | + + + | Home Phone [...] + +------+ + | Care Chief Librarian Circulation Department Name | Role | Phone | [...] | CARDIOLOGY [address] | MD [address] [place] | | | | | [place], | [place], | | | | | [place] [address] | [place] [address] | | | | | [phone] | | | | | | | [...] | | | | | | [place] [address] | | | | | | [phone] | | | | | | | | +--------+ + + + + | 11/20/ | Implant | Cardiology | Daljit Singletary, | Remote Device | | 2018 | Monitor | | [facility] | Interrogation | | | | | [place], | (Primary Dx); | | | | | [place] [address] | Presence of | | | | | [phone] | permanent cardiac | | | | [...]
--- OUTSIDE RECORDS SUMMARY | ~2019-10-04 | XMS | Encounter Summary ---
Demographics + + + | Address | [address] | | | [place] [address] | + + + | Home Phone [...] Team Providers + +------+ + | Care Sebd Teacher Name | Role | Phone | [...] | | | | CENTER [address] | [address] | (Primary Dx) | | | | [place], [place] | [place], [place] | | | | | [address] | [address] | | | | | [phone] | | | +--------+ + + + [...] | | | | | | [place], | | | | | | [place] [address] | | | | | | [phone] | | | | | | | | +--------+ + + + + | 11/20/ | Implant | Cardiology | Sydni Singletary, | Remote Device | | 2019 | Monitor | | [address] [place] | Interrogation | | | | | [place], | (Primary Dx); | | | | | [place] [address] | Presence of | | | | | [phone] | permanent cardiac | | | | [...] W?MRN: | | | | | | [id number] | | | [id number] | | | his | | | [...] | | | ent/60 | | | [id number] | | | -5586- | | | [...] | | | St. | | | [place] | | | y | | | [...] | | | ext. | | | [address] | | | or go | | [...] | | | M.D. | | | Munitions Handler Supervisor | | | al | | [...] | | | | | | [employer] | | | | | [...] ST. | [address] | [place] | [phone] | | [facility] | | [address] | | | - [...] [address] | [place] | [phone] | | [facility] | | [address] | | | - LABORATORY | | [...] [address] | [place] | [phone] | | [facility] | | [address] | | | - LABORATORY | | [...] | . [place] | | | SOUTH AFRICAN | RATE,ESTIMATED | | MEDICAL | | | | mL/min/[id number] than | | CENTER - | | [...] ST. | [address] | [place] | [phone] | | [facility] | | [address] | | | - LABORATORY | | [...] ST. | [address] | [place], [place] | [phone] | | [facility] | | [address] | | | - LABORATORY | | [...] + | [facility] | [address] | [place] | [phone] | | [facility] | | [address] | | | - LABORATORY | | [...] SYDNI | | | | | | ([id number]) on 06/22/2018 | | | | | [...]
--- OUTSIDE RECORDS SUMMARY | ~2019-10-04 | XMS | Encounter Summary ---
Demographics + + + | Address | [address] | | | [place] [address] | + + + | Home Phone [...] + +------+ + | Care Dyeing Machine Back Tender Name | Role | [...] Provider Unknown | | | | | [place], [place] | [phone] | | | | | [address] | | | | | | [phone] | | | +--------+ + + + [...] | | | | | | [place] [address] | | | | | | [phone] | | | | | | | | +--------+ + + + + | 11/20/ | Implant | Cardiology | Daljit Singletary, | Remote Device | | 2019 | Monitor | | [address] [facility] | Interrogation | | | | | [place], | (Primary Dx); | | | | | [place] [address] | Presence of | | | | | [phone] | permanent cardiac | | | | [...]
--- OUTSIDE RECORDS SUMMARY | ~2019-10-04 | XMS | Encounter Summary ---
Demographics + + + | Address | [address] | | | [place] [address] | + + + | Home Phone [...] Team Providers + +------+ + | Care Unleavened Dough Mixer Name | Role | Phone | [...] + | 01/24/ | Telephone | [facility] | Daljit Singletary, | Other | | 2019 | | CARDIOLOGY [address] | MD [address] [place] | | | | | [place], | [place], | | | | | [place] [address] | [place] [address] | | | | | [phone] | [phone] | | | | | | | [...] | | | | | | [place] [address] | | | | | | [phone] | | | | | | | | +--------+ + + + + | 11/20/ | Implant | Cardiology | Daljit Singletary, | Remote Device | | 2018 | Monitor | | MD [address] | Interrogation | | | | | [place], | (Primary Dx); | | | | | [place] [address] | Presence of | | | | | [phone] | permanent cardiac | | | | [...]
--- OUTSIDE RECORDS SUMMARY | ~2019-10-04 | XMS | Encounter Summary ---
Demographics + + + | Address | [address] | | | [place] [address] | + + + | Home Phone [...] Providers + +------+ + | Care Tool Mechanic Name | Role | Phone | + +------+ + | Kirk French MD | PCP | | + +------+ + Encounter Details +--------+ + + + + | Date | Type | Department | Care Team | Description | +--------+ + + + + | 12/23/ | Emergency | [facility] | Cristal Alexander, | Chronic neck pain; | | 2015 | | MEDICAL CENTER | DO [address] | Headache(784.0) | | | | EMERGENCY CENTER | [place] [address] | | | | | [address] | [phone] | | | | | [place], [place] | | | | | | [address] | | | | | | [phone] | | | +--------+ + + + [...] + + + +---------+ + + | Scio-3 Fatty | CAPS, one capsule by | [...] | | | | | | | #[id number], exp 07/2016 | | | | | [...] | | | | | | [place] [address] | | | | | | [phone] | | | | | | | | +--------+ + + + + | 11/20/ | Implant | Cardiology | Daljit Singletary, | Remote Device | | 2018 | Monitor | | 401 [facility] | Interrogation | | | | | [place], | (Primary Dx); | | | | | [place] [address] | Presence of | | | | | [phone] | permanent cardiac | | | | [...] Conversion - 07/07/2019 5:05 AM PDT PINA [id number] years MaleCT | | CERVICAL SPINE WO [...]
--- OUTSIDE RECORDS SUMMARY | ~2019-10-04 | XMS | Encounter Summary ---
Demographics + + + | Address | [address] | | | [place] [address] | + + + | Home Phone [...] Providers + +------+ + | Care Customer Experience Professional Name | Role | Phone | [...] + | 11/05/ | Telephone | [facility] | Daljit Singletary, | Chest Pain | | 2016 | | CARDIOLOGY [address] | MD [address] [place] | | | | | [place], | [place], | | | | | [place] [address] | [place] [address] | | | | | [phone] | [phone] | | | | | | | [...] | | | | | | [place] [address] | | | | | | [phone] | | | | | | | | +--------+ + + + + | 11/20/ | Implant | Cardiology | Daljit Singletary, | Remote Device | | 2018 | Monitor | | MD [address] | Interrogation | | | | | [place], | (Primary Dx); | | | | | [place] [address] | Presence of | | | | | [phone] | permanent cardiac | | | | [...]
--- OUTSIDE RECORDS SUMMARY | ~2019-10-04 | XMS | Encounter Summary ---
Demographics + + + | Address | [address] | | | [place] [address] | + + + | Home Phone [...] Providers + +------+ + | Care Education Supervisor Name | Role | Phone | [...] + | 10/04/ | Telephone | [facility] | Daljit Singletary, | Other (Records sent) | | 2012 | | CARDIOLOGY [address] | MD [address] [place] | | | | | [place], | [place], | | | | | [place] [address] | [place] [address] | | | | | [phone] | [phone] | | | | | | | [...] W | | | | | | [place], | | | | | | [place] [address] | | | | | | [phone] | | | | | | | | +--------+ + + + + | 11/20/ | Implant | Cardiology | Daljit Singletary, | Remote Device | | 2018 | Monitor | | 401 [facility] | Interrogation | | | | | [place], | (Primary Dx); | | | | | [place] [address] | Presence of | | | | | [phone] | permanent cardiac | | | | [...]
--- OUTSIDE RECORDS SUMMARY | ~2019-10-04 | XMS | Encounter Summary ---
Demographics + + + | Address | [address] | | | [place] [address] | + + + | Home Phone [...] Providers + +------+ + | Care Aircraft Layout Worker Name | Role | Phone | + +------+ + | Kirk French MD | PCP | | + +------+ + Encounter Details +--------+ + + + + | Date | Type | Department | Care Team | Description | +--------+ + + + + | 04/07/ | Hospital | [facility] | Pia Akhtar | Spinal stenosis of | | 2016 | Encounter | MED CTR XRAY [address] | MD [address] | lumbar region | | | | [place] | [address] | | | | | [place] [address] | [place] [address] | | | | | [phone] | | | | | | | [...] + + + +---------+ + + | Sulphur-3 Fatty | CAPS, one capsule by | [...] | | | | | | [place] [address] | | | | | | [phone] | | | | | | | | +--------+ + + + + | 11/20/ | Implant | Cardiology | Daljit Singletary, | Remote Device | | 2018 | Monitor | | [address] [facility] | Interrogation | | | | | [place], | (Primary Dx); | | | | | [place] [address] | Presence of | | | | | [phone] | permanent cardiac | | | | [...]
--- OUTSIDE RECORDS SUMMARY | ~2019-10-04 | XMS | Encounter Summary ---
Demographics + + + | Address | [address] | | | [place] [address] | + + + | Home Phone [...] Providers + +------+ + | Care Art Teacher Name | Role | Phone [...] | CARDIOLOGY [address] | DIRECTOR OF PURCHASING [address] [place] | | | | | [place], | [place], [place] | | | | | [place] [address] | [address] | | | | | [phone] | | | +--------+ + + + [...] | 11/09/ | Office | Cardiology | Al[place], | | | 2019 | Visit | | PARISA [place] [address] | | | | | | [place], | | | | | | [place] [address] | | | | | | [phone] | | | | | | | | +--------+ + + + + | 11/20/ | Implant | Cardiology | Daljit Singletary, | Remote Device | | 2018 | Monitor | | MD [address] | Interrogation | | | | | [place], | (Primary Dx); | | | | | [place] [address] | Presence of | | | | | [phone] | permanent cardiac | | | | [...]
--- OUTSIDE RECORDS SUMMARY | ~2019-10-04 | XMS | Encounter Summary ---
Demographics + + + | Address | [address] | | | [place] [address] | + + + | Home Phone [...] + +------+ + | Care Prepared Foods Service Team Member Name | Role | Phone [...] [address] | | | | | [place], | [place], | | | | | [place] [address] | [place] [address] | | | | | [phone] | [phone] | | | | | | | [...] | | | | | | [place] [address] | | | | | | [phone] | | | | | | | | +--------+ + + + + | 11/20/ | Implant | Cardiology | Daljit Singletary, | Remote Device | | 2018 | Monitor | | [address] [place] | Interrogation | | | | | [place], | (Primary Dx); | | | | | [place] [address] | Presence of | | | | | [phone] | permanent cardiac | | | | [...]
--- OUTSIDE RECORDS SUMMARY | ~2019-10-04 | XMS | Encounter Summary ---
Demographics + + + | Address | [address] | | | [place] [address] | + + + | Home Phone [...] + +------+ + | Care Operating Room Surgical Technician Name | Role | Phone [...] | [address] [place] | [place] [address] | | | | | [address] | [phone] | | | | | [phone] | | | +--------+ + + + [...] | | | | | | [place] [address] | | | | | | [phone] | | | | | | | | +--------+ + + + + | 11/20/ | Implant | Cardiology | Daljit Singletary, | Remote Device | | 2018 | Monitor | | MD Chiquis [address] [place] | Interrogation | | | | | [place], | (Primary Dx); | | | | | [place] [address] | Presence of | | | | | [phone] | permanent cardiac | | | | [...]
--- OUTSIDE RECORDS SUMMARY | ~2019-10-04 | XMS | Encounter Summary ---
Demographics + + + | Address | [address] | | | [place] [address] | + + + | Home Phone [...] Providers + +------+ + | Care Senior Microsoft Net Developer Name | Role | Phone [...] | | | | | | [place], [place] | (Fax) | | | | | [address] | | | | | | [phone] | | | +--------+ + + + [...] | | | | | | [place] [address] | | | | | | [phone] | | | | | | | | +--------+ + + + + | 11/20/ | Implant | Cardiology | Daljit Singletary, | Remote Device | | 2018 | Monitor | | [address] [facility] | Interrogation | | | | | [place], | (Primary Dx); | | | | | [place] [address] | Presence of | | | | | [phone] | permanent cardiac | | | | [...]
--- OUTSIDE RECORDS SUMMARY | ~2019-10-04 | XMS | Encounter Summary ---
Demographics + + + | Address | [address] | | | [place] [address] | + + + | Home Phone [...] + +------+ + | Care Professor Of Music Name | Role | [...] + | 01/03/ | Office | [facility] | [place], | CAD (coronary artery | | 2012 | Visit | CARDIOLOGY [address] | Janeen, MOTHERS HELPER [address] | disease) (Primary | | | | [place], | [place], | Dx); Bradycardia; | | | | [place] [address] | [place] [address] | HTN (hypertension); | | | | [phone] | [phone] | Lightheadedness | | | | | [...] tablet Take 1,000 mg by mouth Daily. [place]-3 Fatty Acids (SALMON OIL-1000 PO) CAPS, one [...] t o the emergency department at [facility] in [place], [place]. EKG showed normal s inus rhythm [...] Refer patient to an electrophysiology specialist in [place] for further evaluation for P VC's ablation. I have given verbal instructions and written material for patient to read mo re about the procedure. 2. Check blood pressure and pulse twice daily for two weeks and return the log to our offic e. 3. 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 IJaneen ARNP, saw this patient under the direct supervision of Daljit Singletary MD Portions of this report were transcribed using voice recognition software. Every effort wa s made to ensure accuracy; however, inadvertent computerized onsite health coach errors may be pre sent. documented in this encounter Plan of Treatment +--------+ + + + + | Date | Type | Specialty | Care Team | Description | +--------+ + + + + | 11/09/ | Office | Cardiology | Silvia, | | | 2018 | Visit | | PARISA Vernon [address] | | | | | | [place], | | | | | | [place] [address] | | | | | | [phone] | | | | | | | | +--------+ + + + + | 11/20/ | Implant | Cardiology | Daljit Singletary, | Remote Device | | 2018 | Monitor | | MD [address] [place] [address] | Interrogation | | | | | [place], | (Primary Dx); | | | | | [place] [address] | Presence of | | | | | [phone] | permanent cardiac | | | | [...] of unspecified type | | of vessel, [place] or graft | + + | Bradycardia Other specified cardiac dysrhythmias | + + | HTN (hypertension) Unspecified essential hypertension | + + | Lightheadedness Dizziness and giddiness | + + documented in this encounter
--- OUTSIDE RECORDS SUMMARY | ~2019-10-04 | XMS | Encounter Summary ---
Demographics + + + | Address | [address] | | | [place] [address] | + + + | Home Phone [...] Providers + +------+ + | Care Primary Montessori Teacher Name | Role | Phone | [...] + + | 05/14/ | Office | [facility] | [place], | Coronary artery | | 2013 | Visit | CARDIOLOGY [address] | PARISA Vernon [address] | disease (Primary | | | | [place], | [place], | Dx); Hypertension; | | | | [place] [address] | [place] [address] | Hyperlipidemia; | | | | [phone] | [phone] | Syncope; Other chest | | | [...] Service: 05/14/2014 HISTORY OF PRESENT ILLNESS: Moe Sacnhez is a 54 y.o. male with a [...] needed for Chest pain. 25 tablet 12 [place]-3 Fatty Acids (SALMON OIL-1000 PO) [...] exercising. He is in class II of [employer] 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 There are no [...] to go back in 3 days to [place] for an attempt of ablation under [...] palpitations.. He is in class II of [employer] 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 There are no [...] [facility]. Lightheadedness and dizziness/ presyncope: A. [...] made to ensure accuracy; however, inadvertent computerized family practitioner errors may be pre sent. Electronically signed [...] | | | | | [place], | | | | | | [place] [address] | | | | | | [phone] | | | | | | | | +--------+ + + + + | 11/20/ | Implant | Cardiology | Daljit Singletary, | Remote Device | | 2018 | Monitor | | [address] [place] | Interrogation | | | | | [place], | (Primary Dx); | | | | | [place] [address] | Presence of | | | | | [phone] | permanent cardiac | | | | [...] of unspecified type of | | vessel, match-e-be-nash-she-wish band or graft | + + | Hypertension Unspecified essential hypertension | + + | Hyperlipidemia Other and unspecified hyperlipidemia | + + | Syncope Syncope and collapse | + + | Other chest pain | + + | Chest pain Chest pain, unspecified | + + documented in this encounter
--- OUTSIDE RECORDS SUMMARY | ~2019-10-04 | XMS | Encounter Summary ---
Demographics + + + | Address | [address] | | | [place] [address] | + + + | Home Phone [...] + +------+ + | Care Wire Brush Operator Name | Role | Phone [...] | | CARDIOLOGY [address] | Janeen, MINESWEEPING OFFICER [address] | Clearance) | | | | [place], | [place], | | | | | [place] [address] | [place] [address] | | | | | [phone] | [phone] | | | | | | | [...] | | | | | | [place] [address] | | | | | | [phone] | | | | | | | | +--------+ + + + + | 11/20/ | Implant | Cardiology | Daljit Singletary, | Remote Device | | 2018 | Monitor | | [address] [place] | Interrogation | | | | | [place], | (Primary Dx); | | | | | [place] [address] | Presence of | | | | | [phone] | permanent cardiac | | | | [...]
--- OUTSIDE RECORDS SUMMARY | ~2019-10-04 | XMS | Encounter Summary ---
Demographics + + + | Address | [address] | | | [place] [address] | + + + | Home Phone [...] 2012 | | CARDIOLOGY [address] | SHIP CAPTAIN [address] | | | | | [place], | [place], [place] | | | | | [place] [address] | [address] | | | | | [phone] | | | +--------+ + + + [...] | | | | | | [place] [address] | | | | | | [phone] | | | | | | | | +--------+ + + + + | 11/20/ | Implant | Cardiology | Daljit Singletary, | Remote Device | | 2019 | Monitor | | MD [address] [facility] | Interrogation | | | | | [place], | (Primary Dx); | | | | | [place] [address] | Presence of | | | | | [phone] | permanent cardiac | | | | [...] + | [facility] | [address] | [place], [place] | | | [facility] | | [address] | | | - LABORATORY | | [...] | | | LAB | | | [place], | | | | | | External [...]
--- OUTSIDE RECORDS SUMMARY | ~2019-10-04 | XMS | Encounter Summary ---
Demographics + + + | Address | [address] | | | [place] [address] | + + + | Home Phone [...] + +------+ + | Care Forming Machine Operator Name | Role | Phone | + +------+ + | Kirk French MD | PCP | | + +------+ + Encounter Details +--------+ + + + + | Date | Type | Department | Care Team | Description | +--------+ + + + + | 01/25/ | Hospital | [facility] | Daljit Singletary, | Stable angina | | 2019 | Encounter | MED CTR CV INTRA OP | MD [address] | pectoris (HCC) | | | | [address] | [address], | | | | | [place] | [place] [address] | | | | | [address] | [phone] | | | | | [phone] | | | +--------+ + + + [...] as a collagen plugis used on the republican city triny site to close the site, you [...] by your healthcare provider Date Last Reviewed: 09/22/[id number] [facility]. [address] [place] [address]. All righ ts [...] + + + +---------+ + + | [place]-3 Fatty | CAPS, one capsule by | [...] | | | | | | [place] [address] | | | | | | [phone] | | | | | | | | +--------+ + + + + | 11/20/ | Implant | Cardiology | Daljit Singletary, | Remote Device | | 2018 | Monitor | | MD [facility] | Interrogation | | | | | [place], | (Primary Dx); | | | | | [place] [address] | Presence of | | | | | [phone] | permanent cardiac | | | | [...] (1960) MEDICAL RECORD NUMBER: | | | [id number] OF PROCEDURE: 01/25/2019 ASBESTOS PIPE SUPERVISOR: Daljit | | | MD Gemini [...] Sanchez, (1960) | | OF PROCEDURE: 01/25/2019PRIMARY COLD ROLL INSPECTOR: Daljit Singletary MD PROCEDURES | | PERFORMED:Coronary [...] medical management. | | at 9:33[facility] [...]
--- OUTSIDE RECORDS SUMMARY | ~2019-10-04 | XMS | Encounter Summary ---
Demographics + + + | Address | [address] | | | [place] [address] | + + + | Home Phone [...] + + | 09/22/ | Hospital | [facility] | Bahman Gant MD | | | 2012 | Encounter | MED CTR XRAY [address] | [address] [place] | | | | | [place] | [address] [place], | | | | | [place] [address] | [place] [address] | | | | | [phone] | [phone] | | | | | | | [...] + + + +---------+ + + | [place]-3 Fatty | CAPS, one capsule by | [...] W | | | | | | [place], | | | | | | [place] [address] | | | | | | [phone] | | | | | | | | +--------+ + + + + | 11/20/ | Implant | Cardiology | Daljit Singletary, | Remote Device | | 2019 | Monitor | | MD Chiquis [address] | Interrogation | | | | | [place], | (Primary Dx); | | | | | [place] [address] | Presence of | | | | | [phone] | permanent cardiac | | | | [...]
--- OUTSIDE RECORDS SUMMARY | ~2019-10-04 | XMS | Encounter Summary ---
Demographics + + + | Address | [address] | | | [place] [address] | + + + | Home Phone [...] Located Within [facility] | | [...] | | | | aortic | Janeen, BOAT HAND | [place], | | | | | aneurysm | [address] | [place] [address] | | | | | (HCC) | [place] | Phone: | | | | | Abdominal | [place], | [phone] | | | | | aortic | [place] | Fax: | | | | | aneurysm | [address] | [phone] | | | | | (AAA) | Phone: | | | | | | without | [phone] | | | | | | rupture | Fax: | | | | | | (HCC) | [phone] | | | | | | Procedures [...] | | unspecified | MD Martell | [address] [place] [address] | | | | | type ER | [address] | [place] [address] | | | | | FUP | [place] | [place], | | | | | Procedures | [place], [place] | [place] [address] | | | | | FUP - SUW & | [address] | Phone: | | | | | MISHA PT, LAST | Phone: | [phone] | | | | | SEEN | [phone] | Fax: | | | | | 08-24-18 | Fax: | [phone] | | | | | | [phone] | | +--------+ + + + + + Encounter Details +--------+---------+ + + + | Date | Type | Department | Care Team | Description | +--------+---------+ + + + | 01/11/ | Office | [facility] | Silvia, | Coronary artery | | 2019 | Visit | CARDIOLOGY [address] | [place] [address] | disease involving | | | | [place], | [place], | table [place] coronary | | | [place] [address] | [place] [address] | artery of table mountain | | | | [phone] | [phone] | heart without angina | | | [...] encounter Patient Instructions Patient Instructions Christine Rodriguez, Semiconductor Packages Leak Tester - 01/11/2019 12:45 PM PST 1. You [...] time: 1. Check in at the [facility]. 2. Do not [...] hospital line at and ask for nursing gas line installer supervisor t o let them know you are cancelling . Blood test: Non-fasting Date Due: same day as CTA Where to go for labs: [facility]- [facility] CTA of Chest and Abdomen: Date: [...] of non-critical coronary artery d isease involving table mountain coronary artery of [place] heart without angina pectoris, essential h ypertension, [...] 3RD DOSE, CALL 911 100 tablet 3 Glasgow-3 Fatty Acids (SALMON OIL-1000 PO) CAPS, one [...] was found Confirmed by ANGELA MARADIAGA MD ([id number]) on 01/03/2019 8:10:39 PM LAB RESULTS reviewed [...] reviewed reports from [facility]: Xr Chest Ap Portable [...] mountain coronary artery of [place] heart wi out angina pectoris: A. Normal [...] Symptoms with moderate exertion of t he [employer] Heart Ass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 Heart failure stage [...] [facility] on [facility]. Patient had spontaneous PVC's from [...] go back in 3 days t o [place] for an attempt of ablation under [...] couplets and PVC's were noted, by Daljit Snigletary MD. F. Today, 01/11/2019, discussed results of [...] he has any further problems Christine Clemente Semiconductor Packages Leak Tester am acting as a scribe on behalf of, and in the pres ence of PARISA Lomas. - Reji Newman 01/11/2019 13:46 IJaneen ARNP, personally performed the services described in this documentati on, as scribed in my presence and it is both accurate and complete. -PARISA Lomas 01/11/2019 Portions of this chart may have been created with Pix[employer] voice recognition software. Occasi onal wrong-word or [...] | | | | | | [place] [address] | | | | | | [phone] | | | | | | | | +--------+ + + + + | 11/20/ | Implant | Cardiology | Daljit Singletary, | Remote Device | 2018 | Monitor | | [facility] | Interrogation | | | | | [place], | (Primary Dx); | | | | | [place] [address] | Presence of | | | | | [phone] | permanent cardiac | | | | [...] mountain heart without | | angina pectoris - [...]
--- OUTSIDE RECORDS SUMMARY | ~2019-10-04 | XMS | Encounter Summary ---
Demographics + + + | Address | [address] | | | [place] [address] | + + + | Home Phone [...] Team Providers + +------+ + | Care Sewage Reticulation Drafting Officer Name | Role | Phone | + +------+ + | Kirk French MD | PCP | | + +------+ + Encounter Details +--------+ + + + + | Date | Type | Department | Care Team | Description | +--------+ + + + + | 08/10/ | Orders Only | [facility] K[facility] | [place], | Mixed hyperlipidemia | | 2016 | | MED CTR LABORATORY | PARISA [place] [address] | (Primary Dx) | | | | [address] [place] | [place], | | | | | [place] | [place] [address] | | | | | [address] | [phone] | | | | | [phone] | | | +--------+ + + + [...] W | | | | | | [place], | | | | | | [place] [address] | | | | | | [phone] | | | | | | | | +--------+ + + + + | 11/20/ | Implant | Cardiology | Daljit Singletary, | Remote Device | | 2018 | Monitor | | [place] [facility] | Interrogation | | | | | [place], | (Primary Dx); | | | | | [place] [address] | Presence of | | | | | [phone] | permanent cardiac | | | | [...]
--- OUTSIDE RECORDS SUMMARY | ~2019-10-04 | XMS | Encounter Summary ---
Demographics + + + | Address | [address] | | | [place] [address] | + + + | Home Phone [...] Providers + +------+ + | Care Film Sound Coordinator Name | Role | Phone | [...] [address] | | | | | | [place], [place] | (Fax) | | | | | [address] | | | | | | [phone] | | | +--------+ + + + [...] | | | | | | [place] [address] | | | | | | [phone] | | | | | | | | +--------+ + + + + | 11/20/ | Implant | Cardiology | Daljit Singletary, | Remote Device | | 2018 | Monitor | | [facility] | Interrogation | | | | | [place], | (Primary Dx); | | | | | [place] [address] | Presence of | | | | | [phone] | permanent cardiac | | | | [...]
--- OUTSIDE RECORDS SUMMARY | ~2019-10-04 | XMS | Encounter Summary ---
Demographics + + + | Address | [address] | | | [place] [address] | + + + | Home Phone [...] Providers + +------+ + | Care Budget Manager Name | Role | Phone | [...] [address] | | | | | | [place], [place] | (Fax) | | | | | [address] | | | | | | [phone] | | | +--------+ + + + [...] | | | | | | [place] [address] | | | | | | [phone] | | | | | | | | +--------+ + + + + | 11/20/ | Implant | Cardiology | Daljit Singletary, | Remote Device | | 2018 | Monitor | | [facility] | Interrogation | | | | | [place], | (Primary Dx); | | | | | [place] [address] | Presence of | | | | | [phone] | permanent cardiac | | | | [...]
--- OUTSIDE RECORDS SUMMARY | ~2019-10-04 | XMS | Encounter Summary ---
Demographics + + + | Address | [address] | | | [place] [address] | + + + | Home Phone [...] Team Providers + +------+ + | Care Remnants Cutter Name | Role | Phone | [...] | CARDIOLOGY [address] | [address] [place] | (Primary Dx); | | | | [place], | [place], | Tachycardia; | | | | [place] [address] | [place] [address] | Coronary artery | | | | [phone] | [phone] | disease involving | | | | [...] | | | | | | [place], | | | | | | [place] [address] | | | | | | [phone] | | | | | | | | +--------+ + + + + | 11/20/ | Implant | Cardiology | Daljit Singletary, | Remote Device | | 2019 | Monitor | | MD [place] | Interrogation | | | | | [place], | (Primary Dx); | | | | | [place] [address] | Presence of | | | | | [phone] | permanent cardiac | | | | [...] DALJIT | | | | | | ([id number]) on 06/29/2018 | | | | | [...]
--- OUTSIDE RECORDS SUMMARY | ~2019-10-04 | XMS | Encounter Summary ---
Demographics + + + | Address | [address] | | | [place] [address] | + + + | Home Phone [...] Providers + +------+ + | Care Board Certified Arts Therapist Name | Role | Phone | [...] [address] | | | | | [place], | [place], | | | | | [place] [address] | [place] [address] | | | | | [phone] | [phone] | | | | | | | [...] | | | | | | [place] [address] | | | | | | [phone] | | | | | | | | +--------+ + + + + | 11/20/ | Implant | Cardiology | Daljit Singletary, | Remote Device | | 2019 | Monitor | | MD [address] [facility] | Interrogation | | | | | [place], | (Primary Dx); | | | | | [place] [address] | Presence of | | | | | [phone] | permanent cardiac | | | | [...] | [facility] | | [address] | | | - LABORATORY | | [...] + | [address] | [address] | [place] | | | [facility] | | [address] | | | - LABORATORY | | [...]
--- OUTSIDE RECORDS SUMMARY | ~2019-10-04 | XMS | Encounter Summary ---
Demographics + + + | Address | [address] | | | [place] [address] | + + + | Home Phone [...] | [facility] | | [...] Team Providers + +------+ + | Care Strapper Operator Name | Role | Phone | + +------+ + PCP | Unavailable | + +------+ + Encounter Details +--------+ + + + + | Date | Type | Department | Care Team | Description | +--------+ + + + + | 02/21/ | [facility] | [facility] | Geri Angel, | | | 2011 | Encounter | MED CTR XRAY [address] | TUTORIAL LABORATORY SUPERVISOR [address] [place] | | | | | [place] | [address] [place] | | | | | [place] [address] | [address] | | | | | [phone] | | | +--------+ + + + [...] | | | | | | [place] [address] | | | | | | [phone] | | | | | | | | +--------+ + + + + | 11/20/ | Implant | Cardiology | Daljit Singletary, | Remote Device | | 2019 | Monitor | | MD [address] | Interrogation | | | | | [place], | (Primary Dx); | | | | | [place] [address] | Presence of | | | | | [phone] | permanent cardiac | | | | [...]
--- OUTSIDE RECORDS SUMMARY | ~2019-10-04 | XMS | Encounter Summary ---
Demographics + + + | Address | [address] | | | [place] [address] | + + + | Home Phone [...] Providers + +------+ + | Care Document Processing Specialist Name | Role | Phone | [...] 2012 | | CARDIOLOGY [address] | PANTRY GOODS WORKER [address] [place] | | | | | [place], | [place] [facility], [place] | | | | | [place] [address] | [address] | | | | | [phone] | | | +--------+ + + + [...] | | | | | | [place], | | | | | | [place] [address] | | | | | | [phone] | | | | | | | | +--------+ + + + + | 11/20/ | Implant | Cardiology | Daljit Singletary, | Remote Device | | 2018 | Monitor | | MD [address] | Interrogation | | | | | [place], | (Primary Dx); | | | | | [place] [address] | Presence of | | | | | [phone] | permanent cardiac | | | | [...]
--- OUTSIDE RECORDS SUMMARY | ~2019-10-04 | XMS | Encounter Summary ---
Demographics + + + | Address | [address] | | | [place] [address] | + + + | Home Phone [...] Team Providers + +------+ + | Care Adaptive Physical Educator Name | Role | Phone | + +------+ + PCP | Unavailable | + +------+ + Encounter Details +--------+ + + + + | Date | Type | Department | Care Team | Description | +--------+ + + + + | 11/12/ | Hospital | [facility] | | | | 1994 | Encounter | MED CTR GENERIC OP | | | | | | CONV DEPT [address] | | | | | | [place], | | | | | | [place] [address] | | | | | | [phone] | | | +--------+ + + + [...] | | | | | | [place] [address] | | | | | | [phone] | | | | | | | | +--------+ + + + + | 11/20/ | Implant | Cardiology | Daljit Singletary, | Remote Device | | 2018 | Monitor | | [facility] | Interrogation | | | | | [place], | (Primary Dx); | | | | | [place] [address] | Presence of | | | | | [phone] | permanent cardiac | | | | [...]
--- OUTSIDE RECORDS SUMMARY | ~2019-10-04 | XMS | Encounter Summary ---
Demographics + + + | Address | [address] | | | [place] [address] | + + + | Home Phone [...] | CARDIOLOGY [address] | MD [address] [place] | | | | | [place], | [place], | | | | | [place] [address] | [place] [address] | | | | | [phone] | [phone] | | | | | | | [...] | | | | | | [place] [address] | | | | | | [phone] | | | | | | | | +--------+ + + + + | 11/20/ | Implant | Cardiology | Daljit Singletary, | Remote Device | | 2019 | Monitor | | MD [place] | Interrogation | | | | | [address] [place], | (Primary Dx); | | | | | [place] [address] | Presence of | | | | | [phone] | permanent cardiac | | | | [...]
--- OUTSIDE RECORDS SUMMARY | ~2019-10-04 | XMS | Encounter Summary ---
Demographics + + + | Address | [address] | | | [place] [address] | + + + | Home Phone [...] Providers + +------+ + | Care Continuous Washer Operator Name | Role | Phone | [...] [address] | | | | | [place], | [place], | | | | | [place] [address] | [place] [address] | | | | | [phone] | [phone] | | | | | | | [...] W | | | | | | [place], | | | | | | [place] [address] | | | | | | [phone] | | | | | | | | +--------+ + + + + | 11/20/ | Implant | Cardiology | Daljit Singletary, | Remote Device | | 2018 | Monitor | | [address] [place] | Interrogation | | | | | [place], | (Primary Dx); | | | | | [place] [address] | Presence of | | | | | [phone] | permanent cardiac | | | | [...] Comment | + + | [facility] | + + + +---------+ + + [...] Comment | + + | [facility] | + + + +---------+ + + [...]
--- OUTSIDE RECORDS SUMMARY | ~2019-10-04 | XMS | Encounter Summary ---
Demographics + + + | Address | [address] | | | [place] [address] | + + + | Home Phone [...] + +------+ + | Care Senior Ux Developer Name | Role | Phone | + +------+ + | Kirk French MD | PCP | | + +------+ + Encounter Details +--------+---------+ + + + | Date | Type | Department | Care Team | Description | +--------+---------+ + + + | 12/24/ | Surgery | [facility] | Emmanuel Daniel MD | EGD | | 2018 | | MED CTR MP INTRA OP | [address], [place] | | | | | [address] | [address] [place], [place] | | | | | [place], [place] | [address] | | | | | [address] | | | | | | [phone] | | | +--------+---------+ + + + [...] + + +---------+ + + | [place]-3 Fatty | CAPS, one capsule by | [...] | | | | | | [place] [address] | | | | | | [phone] | | | | | | | | +--------+ + + + + | 11/20/ | Implant | Cardiology | Daljit Singletary, | Remote Device | | 2019 | Monitor | | [facility] | Interrogation | | | | | [place], | (Primary Dx); | | | | | [place] [address] | Presence of | | | | | [phone] | permanent cardiac | | | | [...] + | Performed at: 01 - [facility] [place] [address], | REFERENCE LAB | | [place], [place] [id number] Aeronautical Engineering Officer: William Andrew MD, Phone: | [facility] - KINA | | [phone] | | + + + + + + + + | Performing | Address | City/State/Zipcode | Phone Number | | Organization | | | | + + + + + | REFERENCE LAB | [address] | [place] [address] | [phone] | | [facility] - [facility] | [facility] | | | + [...] [address] | [place] | [phone] | | [facility] | | [address] | | | - LABORATORY | | [...] | | Aeromonas, Plesiomonas, | | [facility] | | | | [...] [address] | [place] | [phone] | | [facility] | | [address] | | | - LABORATORY | | [...] [address] | [place] | [phone] | | [facility] | | [address] | | | - LABORATORY | | [...] + + | Performed at: 01 - [facility] [address], | REFERENCE LAB | | [place], [place] [id number] Aeronautical Engineering Officer: William Andrew MD, Phone: | [facility] | | [phone] | | + + + + + + + + | Performing | Address | City/State/Zipcode | Phone Number | | Organization | | | | + + + + + | REFERENCE LAB | [address] | [place] [address] | [phone] | | [facility] - K[facility] | [facility] | | | + + [...] + | [facility] | [address] | [place] | [phone] | | [facility] | | [address] | | | - LABORATORY | | [...] [address] | [place] | [phone] | | [facility] | | [address] | | | - LABORATORY | | [...] | | dium | | | [facility] | | | Antigen | [...] [address] | [place] | [phone] | | [facility] | | [address] | | | - LABORATORY | | [...] [address] | [place] | [phone] | | [facility] | | [address] | | | - LABORATORY | | [...] [address] | [place] | [phone] | | [facility] | | [address] | | | - LABORATORY | | | | + + + + + EGD (12/24/2017 1:19 PM PST) + + | Specimen | + + | | + + + + -+ | Narrative | Performed At | + + -+ | | [facility] | | GastroenterologyPatient Name: Moe SanchezKane Date: 12/24/2017 | [facility]OVATION | | 1:19 PMMRN: [id number] #: [id number] of : | | | 1960Admit Type: AmbulatoryAge: 57Room: [facility] 01Gender: MaleNote | | | Status: FinalizedAttending MD: Emmanuel Daniel , [facility] | | | Upper GI endoscopyIndications: Diarrhea, Weight | | | lossProviders: Emmanuel Daniel MD, Maria Isabel Morris RN, | | | Kim Hicks, Television Installer, Jarett | | | Sapna Barakat MD [...] the anesthesiologist and | | | the heating repair technician in the endoscopy suite. Mental [...] | | [facility], [address] [place] [address] | | | [place] [address] | | | - Discharge patient to [...] [facility], [address] [place], [place] | | | [address] | | + + -+ + +---------+ [...] 12/24/2017 | [facility] | | 1:17 PMMRN: [id number] #: [id number] of : | | | 8Admit Type: AmbulatoryAge: 57Room: [facility] 01Gender: MaleNote | | | Status: FinalizedAttending MD: Emmanuel Daniel , [facility]cedure: | | | ColonoscopyIndications: Clinically significant diarrhea of | | | unexplained originProviders: Emmanuel Daniel MD, Maria Isabel | | | Arturo RN, Kim Hicks, Television Installer, | | | Jarett Barakat MD (Anesthesia [...] | | | the anesthesiologist and the heating repair technician in the endoscopy suite. | [...] 1:48:57 PM [facility] | | | [facility], [address] [place] [address] | | | [phone] | | | - Await pathology results. [...] Out: 1:48:57 PM | | | [facility], [address] [place] [address] | | | [address] | | + + -+ + +---------+ [...] | colonic mucosa with focal adenomatous change. CLR:[facility]:C2NR | | | GROSS DESCRIPTION: Received [...] | | cm, submitted, all in (D1). ka:CLR:[facility] ADDITIONAL NOTES: | | | Immunohistochemical studies were performed on this case with the | | | appropriate positive controls that react as expected. This test was | | | developed and its performance characteristics determined by [facility] | | | [facility] It has not been cleared or approved by the U.S. Food | | | and Drug Administration. The FDA has determined that such clearance | | | or approval is not necessary. This test is used for clinical | | | purposes. It should not be regarded as investigational or for | | | research. [facility] is certified under the Clinical | | | Laboratory Improvement Amendments of 1988 (CLIA) as qualified to | | | perform high complexity clinical laboratory testing. This assay | | | has not been validated for specimens that have been decalcified. | | | PERFORMING LABORATORY: Tissue processing and slide preparation were | | | performed by [facility], [address], [facility] | | | [place] [address] (Superintendent Drilling And Production: Evan Frausto M.D. CLIA#: | | | [id number]). Professional interpretation was performed by [employer] | | | [employer], [address], [place] [address] | | | (Superintendent Drilling And Production: Evan Frausto M.D.; CLIA#: [id number]). | | | Diagnostician: Rafael Bales MD [...]
--- OUTSIDE RECORDS SUMMARY | ~2019-10-04 | XMS | Encounter Summary ---
Demographics + + + | Address | [address] | | | [place] [address] | + + + | Home Phone [...] Team Providers + +------+ + | Care Polish Compounder Name | Role | Phone | + [...] Provider Unknown | | | | | [place], [place] | [phone] | | | | | [address] | | | | | | [phone] | | | +--------+ + + + [...] | | | | | | [place] [address] | | | | | | [phone] | | | | | | | | +--------+ + + + + | 11/20/ | Implant | Cardiology | Daljit Singletary, | Remote Device | | 2018 | Monitor | | [facility] | Interrogation | | | | | [place], | (Primary Dx); | | | | | [place] [address] | Presence of | | | | | [phone] | permanent cardiac | | | | [...]
--- OUTSIDE RECORDS SUMMARY | ~2019-10-04 | XMS | Encounter Summary ---
Demographics + + + | Address | [address] | | | [place] [address] | + + + | Home Phone [...] + +------+ + | Care Clinical Rehabilitation Specialist Name | Role | Phone | [...] Refill | | 2013 | | [facility] [place] | DO [address] | | | | | [address] | [place] | | | | | [place] | [address] | | | | | [address] | | | | | | [phone] | | | +--------+--------+ + + + [...] | | | | | | [place], | | | | | | [place] [address] | | | | | | [phone] | | | | | | | | +--------+ + + + + | 11/20/ | Implant | Cardiology | Daljit Singletary, | Remote Device | | 2018 | Monitor | | [address] [facility] | Interrogation | | | | | [place], | (Primary Dx); | | | | | [place] [address] | Presence of | | | | | [phone] | permanent cardiac | | | | [...]
--- OUTSIDE RECORDS SUMMARY | ~2019-10-04 | XMS | Encounter Summary ---
Demographics + + + | Address | [address] | | | [place] [address] | + + + | Home Phone [...] Providers + +------+ + | Care Management Development Specialist Name | Role | Phone [...] 2014 | | CARDIOLOGY [address] | PIPE RECOVERY SPECIALIST [address] | | | | | [place], | [place], [place] | | | | | [place] [address] | [address] | | | | | [phone] | | | +--------+ + + + [...] | | | | | | [place] [address] | | | | | | [phone] | | | | | | | | +--------+ + + + + | 11/20/ | Implant | Cardiology | Daljit Singletary, | Remote Device | | 2018 | Monitor | | MD [address] | Interrogation | | | | | [address] [place], | (Primary Dx); | | | | | [place] [address] | Presence of | | | | | [phone] | permanent cardiac | | | | [...]
--- OUTSIDE RECORDS SUMMARY | ~2019-10-04 | XMS | Encounter Summary ---
Demographics + + + | Address | [address] | | | [place] [address] | + + + | Home Phone [...] Providers + +------+ + | Care Underwriting Assistant Name | Role | Phone | + +------+ + | Kirk French MD | PCP | | + +------+ + Encounter Details +--------+ + + + + | Date | Type | Department | Care Team | Description | +--------+ + + + + | 12/24/ | [facility] | [facility] | Emmanuel Daniel MD | Pain of upper | | 2018 | Encounter | MED CTR MP INTRA OP | [address], [place] | abdomen (Primary | | | | [address] | [address] [place], [place] | Dx); Functional | | | | [place], [place] | [address] | diarrhea; Weight | | | | [address] | | loss | | | | [phone] | | | +--------+ + + + [...] + + + +---------+ + + | Plains-3 Fatty | CAPS, one capsule by [...] | | | | | | [place] [address] | | | | | | [phone] | | | | | | | | +--------+ + + + + | 11/20/ | Implant | Cardiology | Daljit Singletary, | Remote Device | | 2019 | Monitor | | [address] [facility] | Interrogation | | | | | [address] [place], | (Primary Dx); | | | | | [place] [address] | Presence of | | | | | [phone] | permanent cardiac | | | | [...] + | Performed at: 01 - [facility] [place] [address], | REFERENCE LAB | | [id number] Jewelry Consultant: William Andrew MD, Phone: | ARSH [place] | | [phone] | | + + + + + + + + | Performing | Address | City/State/Zipcode | Phone Number | | Organization | | | | + + + + + | REFERENCE LAB | [address] | [place], [place] [address] | [phone] | | [place] - [place] | Drive [...] + | [facility] | [address] | [place] | [phone] | | [facility] | | [address] | | | - LABORATORY | | [...] [address] | [place] | [phone] | | [facility] | | [address] | | | - LABORATORY | | [...] + | [address] | [address] | [place] | [phone] | | [facility] | | [address] | | | - LABORATORY | | [...] + + | Performed at: 01 - [place] [address], | REFERENCE LAB | | [id number] Jewelry Consultant: William Andrew MD, Phone: | [place] | | [phone] | | + + + + + + + + | Performing | Address | City/State/Zipcode | Phone Number | | Organization | | | | + + + + + | REFERENCE LAB | [address] | [place] [address] | [phone] | | [facility] - [place] | Drive [...] + | [facility] | [address] | [place] | [phone] | | [facility] | | [address] | | | - LABORATORY | | [...] ST. | [address] | [place], [place] | [phone] | | [facility] | | [address] | | | - LABORATORY | | [...] [address] | [place] | [phone] | | [facility] | | [address] | | | - LABORATORY | | [...] [address] | [place] | [phone] | | [facility] | | [address] | | | - LABORATORY | | [...] [address] | [place] | [phone] | | [facility] | | [address] | | | - LABORATORY | | | | + + + + + EGD (12/24/2017 1:19 PM PST) + + | Specimen | + + | | + + + + -+ | Narrative | Performed At | + + -+ | | [facility] | | GastroenterologyPatient Name: Moe Venegas Date: 12/24/2017 | [facility] | | 1:19 PMMRN: [id number] #: [id number] of : | | | 9Admit Type: AmbulatoryAge: 57Room: [facility] 01Gender: MaleNote | | | Status: FinalizedAttending MD: Emmanuel Daniel , [facility]: | | | Upper GI endoscopyIndications: Diarrhea, Weight | | | lossProviders: Emmanuel Daniel MD, Maria Isabel Morris RN, | | | Kim Hicks, Retail Wireless Sales Consultant, Jarett | | | Sapna Barakat MD (Anesthesia Staff)Referring MD: Kirk Vlades | | | Manolo (Referring MD)Medicines: Propofol [...] the anesthesiologist and | | | the contract technician in the endoscopy suite. Mental Status [...] | | | [facility], [address] [facility] | | | [place] [address] | | | - Discharge patient to [...] Out: 1:31:13 PM | | | [facility], [address] [facility], [place], [place] | | | [address] | | + + -+ + +---------+ [...] 12/24/2017 | [facility] | | 1:17 PMMRN: [id number] #: [id number] of : | | | 9Admit Type: AmbulatoryAge: 57Room: [facility] 01Gender: MaleNote | | | Status: FinalizedAttending MD: Emmanuel Daniel , [facility]cedure: | | | ColonoscopyIndications: Clinically significant diarrhea of | | | unexplained originProviders: Emmanuel Daniel MD, Maria Isabel | | | Arturo RN, Kim Hicks, Retail Wireless Sales Consultant, | | | Jarett Barakat MD (Anesthesia [...] | | | the anesthesiologist and the contract technician in the endoscopy suite. | | [...] Scope In: 1:32:55 PMScope Out: 1:48:57 PM [facility] | | | [facility], [address] [place] [address] | | | [phone] | | | - Await pathology results. [...] 1:48:57 PM | | | [facility], [address] [place] [address] | | | [address] | | + + -+ + +---------+ [...] developed and its performance characteristics determined by [facility] | | | [employer]. It has not been cleared or approved by the U.S. Food | | | and Drug Administration. The FDA has determined that such clearance | | | or approval is not necessary. This test is used for clinical | | | purposes. It should not be regarded as investigational or for | | | research. [facility] is certified under the Clinical | | | Laboratory Improvement Amendments of 1988 (CLIA) as qualified to | | | perform high complexity clinical laboratory testing. This assay | | | has not been validated for specimens that have been decalcified. | | | PERFORMING LABORATORY: Tissue processing and slide preparation were | | | performed by [facility], [facility] ., [facility] [address] | | | [place] [address] (Seafood Processor: Evan Frausto M.D. CLIA#: | | | [id number]). Professional interpretation was performed by [facility] | | | [employer], [facility] [address] [employer] ., [address], [place] [address] | | | (Seafood Processor: Evan Frausto M.D.; CLIA#: [id number]). | | | Diagnostician: Rafael Bales MD [...]
--- OUTSIDE RECORDS SUMMARY | ~2019-10-04 | XMS | Encounter Summary ---
Demographics + + + | Address | [address] | | | [place] [address] | + + + | Home Phone [...] Providers + +------+ + | Care Video Presentation Operator Name | Role | Phone | [...] | | | | CENTER [address] | [address] | | | | | [place] | [place] | | | | | [address] | [address] | | | | | [phone] | | | +--------+ + + + [...] + + + +---------+ + + | Siletz-3 Fatty | CAPS, one capsule by | [...] | | | | | | [place] [address] | | | | | | [phone] | | | | | | | | +--------+ + + + + | 11/20/ | Implant | Cardiology | Daljit Singletary, | Remote Device | | 2018 | Monitor | | [address] [facility] | Interrogation | | | | | [address] [place], | (Primary Dx); | | | | | [place] [address] | Presence of | | | | | [phone] | permanent cardiac | | | | [...] | | | | | | [employer] | | | | | [...] [address] | [place] | [phone] | | [facility] | | [address] | | | - LABORATORY | | [...] + | [facility] [facility] | [address] | [place] | [phone] | | [facility] | | [address] | | | - LABORATORY | | [...] in | 12 - 53 U/L | [facility] | | | | use as of January 18 | | [facility] | | | | 2018. Check [...] + | [facility] | [address] | [place] | [phone] | | [facility] | | [address] | | | - LABORATORY | | [...] mL/min/1.73m2 | [facility] | | | SLOVENIAN | RATE,ESTIMATED | | MEDICAL | | | | mL/min/1.12p5Btbq than | | CENTER - | | [...] [address] | [place], [place] | [phone] | | [facility] | | [address] | | | - LABORATORY | | [...] + | [address] | [address] | [place] | [phone] | | [facility] | | [address] | | | - LABORATORY | | [...] [address] | [place] | [phone] | | [facility] | | [address] | | | - LABORATORY | | [...] | | | | ANGELA MARADIAGA MD ([id number]) | | | | | | on [...] | | | | | Patient Address: [address] [place] [address] | | | | | | | [place] [address], | | | | | | + + + +------+---+---+ +---+---+ | | | +---+---+ documented in this encounter
--- OUTSIDE RECORDS SUMMARY | ~2019-10-04 | XMS | Encounter Summary ---
Demographics + + + | Address | [address] | | | [place] [address] | + + + | Home Phone [...] + +------+ + | Care Set Up Operator Name | Role | [...] 2014 | | CARDIOLOGY [address] | [employer] [address] | | | | | [place], | [place], [place] | | | | | [place] [address] | [address] | | | | | [phone] | | | +--------+ + + + [...] | 11/09/ | Office | Cardiology | [place], | | | 2019 | Visit | | [place] [address] | | | | | | [place], | | | | | | [place] [address] | | | | | | [phone] | | | | | | | | +--------+ + + + + | 11/20/ | Implant | Cardiology | Daljit Singletary, | Remote Device | | 2018 | Monitor | | MD [address] | Interrogation | | | | | [place], | (Primary Dx); | | | | | [place] [address] | Presence of | | | | | [phone] | permanent cardiac | | | | [...]
--- OUTSIDE RECORDS SUMMARY | ~2019-10-04 | XMS | Encounter Summary ---
Demographics + + + | Address | [address] | | | [place] [address] | + + + | Home Phone [...] Providers + +------+ + | Care Home Sales Service Professional Name | Role | Phone | + +------+ + | Kirk French MD | PCP | | + +------+ + Encounter Details +--------+ + + + + | Date | Type | Department | Care Team | Description | +--------+ + + + + | 12/24/ | Orders Only | [facility] | Conversion | | | 2018 | | [facility] | Transaction, | | | | | PRIMARY CARE [address] | Provider Unknown | | | | | [address] | [phone] | | | | | [place] | | | | | | [address] | | | | | | [phone] | | | +--------+ + + + [...] | | | | | | [place], | | | | | | [place] [address] | | | | | | [phone] | | | | | | | | +--------+ + + + + | 11/20/ | Implant | Cardiology | Daljit Singletary, | Remote Device | | 2018 | Monitor | | [address] [facility] | Interrogation | | | | | [place], | (Primary Dx); | | | | | [place] [address] | Presence of | | | | | [phone] | permanent cardiac | | | | [...]
--- OUTSIDE RECORDS SUMMARY | ~2019-10-04 | XMS | Encounter Summary ---
Demographics + + + | Address | [address] | | | [place] [address] | + + + | Home Phone [...] Providers + +------+ + | Care Dolly Operator Name | Role | Phone | [...] 2019 | | GASTROENTEROLOGY | [address], [place] | | | | | [address] [place] | [address] [place], [place] | | | | | [address] [place], [place] | [address] | | | | | [address] | | | | | | [phone] | | | +--------+ + + + [...] | | | | | | [place] [address] | | | | | | [phone] | | | | | | | | +--------+ + + + + | 11/20/ | Implant | Cardiology | Daljit Singletary, | Remote Device | | 2018 | Monitor | | MD [address] | Interrogation | | | | | [place], | (Primary Dx); | | | | | [place] [address] | Presence of | | | | | [phone] | permanent cardiac | | | | [...]
--- OUTSIDE RECORDS SUMMARY | ~2019-10-04 | XMS | Encounter Summary ---
Demographics + + + | Address | [address] | | | [place] [address] | + + + | Home Phone [...] Providers + +------+ + | Care Steel Melter Name | Role | Phone | [...] + | 06/23/ | Office | [facility] | [place], | Ascending thoracic | | 2016 | Visit | CARDIOLOGY [address] | [place] [address] | aortic aneurysm | | | | [place], | [place], | ([facility]) (Primary Dx); | | | | [place] [address] | [place] [address] | Coronary artery | | | | [phone] | [phone] | disease involving | | | | [...] in office in 6 months. hgabby, Janeen, CHILI MAKER - 06/23/2016 12:45 PM PDT PATIENT NAME: Moe Sanchez : 1960: AGE: 56 y.o. PRIMARY CARE: Kirk French MD OUTPATIENT FOLLOW UP VISIT Date of Service: 06/23/2016 HISTORY OF PRESENT ILLNESS: Moe Sanchez is a 56 y.o. 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 Normal exercise sestamibi [...] pain. He is in class I-II of [place] [employer] n functional class. There are [...] to go back in 3 days to [place] for an attempt of ablation under general [...] this chart may have been created with [employer] voice recognition software. Occasi onal wrong-word [...] | | | | | | [place] [address] | | | | | | [phone] | | | | | | | | +--------+ + + + + | 11/20/ | Implant | Cardiology | Daljit Singletary, | Remote Device | | 2018 | Monitor | | [address] [facility] | Interrogation | | | | | [place], | (Primary Dx); | | | | | [place] [address] | Presence of | | | | | [phone] | permanent cardiac | | | | [...] the | | | | PDT | match-e-be-nash-she-wish band coronary | results section. | | | [...] MD | | | | | | ([id number]) on 06/23/2016 | | | | | [...]
--- OUTSIDE RECORDS SUMMARY | ~2019-10-04 | XMS | Encounter Summary ---
Demographics + + + | Address | [address] | | | [place] [address] | + + + | Home Phone [...] + + | 10/13/ | Hospital | [facility] | | | | 2007 | Encounter | MED CTR EMERGENCY | | | | | | [place] [address] | | | | | | [place] | | | | | | [address] | | | | | | [phone] | | | +--------+ + + + [...] | | | | | | [place] [address] | | | | | | [phone] | | | | | | | | +--------+ + + + + | 11/20/ | Implant | Cardiology | Daljit Singletary, | Remote Device | | 2018 | Monitor | | [address] [facility] | Interrogation | | | | | [place], | (Primary Dx); | | | | | [place] [address] | Presence of | | | | | [phone] | permanent cardiac | | | | [...]
--- OUTSIDE RECORDS SUMMARY | ~2019-10-04 | XMS | Encounter Summary ---
Demographics + + + | Address | [address] | | | [place] [address] | + + + | Home Phone [...] Team Providers + +------+ + | Care Beader Tender Name | Role | Phone | [...] + | 10/23/ | Office | [facility] | [place], | CAD (coronary artery | | 2013 | Visit | CARDIOLOGY [address] | [place] [address] | disease) (Primary | | | | [place], | [place], | Dx); Other chest | | | | [place] [address] | [place] [address] | pain; Chest pain; | | | | [phone] | [phone] | Coronary artery | | | | [...] Sanchez Date: October 23, 2014 : 1960 Infrastructure Solutions Architect: Kailey Pruitt RN Device Payroll And Benefits Analyst: [employer] Sense (mV) Impedance (?) Capture (V) Capture (ms) A Lead 2.80-4.00 407 1.500 0.09 RV Lead 22.40-31.36 519 2.000 0.09 LV Lead Battery Impedance (?): 658 Battery Voltage (V): 2.79 [place] Interval (ms): 155 AR Interval (ms): 240 VA Conduction: Mode Switch Events: 1 % of time: <0.1 -LINER WORKER: <0.1% AP-LINER WORKER: <0.1% -VS: 13.8% AP-VS: 86.1% LINER WORKER: Magnetic Rate: 85 LINDA: 65 LEAH: [...] Kailey Pruitt RN 10/23/2014 15:22 ames 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 25 tablet 12 [place]-3 Fatty Acids (SALMON OIL-1000 PO) CAPS, one [...] attenuation cannot completely be ruled out. [facility] 12/25/13, shows non critical coronary artery [...] He is i n class I-II of [place] 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 There are no [...] to go back in 3 days to [place] for an attempt of ablation under general [...] dizziness. He is in class I-II of [place] 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 There are n [...] this chart may have been created with [employer] voice recognition software. Occasi onal wrong-word or [...] W | | | | | | [place], | | | | | | [place] [address] | | | | | | [phone] | | | | | | | | +--------+ + + + + | 11/20/ | Implant | Cardiology | Anshushaistatesha Shaistaanshu, | Remote Device | | 2019 | Monitor | | [address] [facility] | Interrogation | | | | | [place], | (Primary Dx); | | | | | [place] [address] | Presence of | | | | | [phone] | permanent cardiac | | | | [...] 23, 2014 : | | | 1960 Infrastructure Solutions Architect: Kailey Pruitt RN Device Payroll And Benefits Analyst: | | | Medtronic Sense (mV) Impedance (?) Capture (V) Capture (ms) A | | | Lead 2.80-4.00 407 1.500 0.09 RV Lead 22.40-31.36 519 2.000 0.09 | | | LV Lead Battery Impedance (?): 658 Battery Voltage (V): 2.79 | | | [place] Interval (ms): 155 AR Interval (ms): 240 VA Conduction: Mode | | | Switch Events: 1 % of time: <0.1 -LINER WORKER: <0.1% AP-LINER WORKER: <0.1% -VS: | | | 13.8% AP-VS: 86.1% LINER WORKER: Magnetic Rate: 85 LINDA: 65 LEAH: [...] | | Date: October 23, 2014DOB: 1960 Infrastructure Solutions Architect: Chikis Saule Payroll And Benefits Analyst: | | Medtronic Sense (mV) Impedance (?) Capture (V) Capture (ms) A Lead 2.80-4.00 407 1.500 | | 0.09 RV Lead 22.40-31.36 519 2.000 0.09 LV Lead Battery Impedance (?): 658 Battery | | Voltage (V): 2.79 [place] Interval (ms): 155 AR Interval (ms): 240 VA Conduction: Mode | | Switch Events: 1 % of time: <0.1 -LINER WORKER: <0.1% AP-LINER WORKER: <0.1% -VS: 13.8% AP-VS: 86.1% LINER WORKER: | | Magnetic Rate: 85 LINDA: 65 [...] of unspecified type | | of vessel, [place] or graft | + + | Other chest pain | + + | Chest pain Chest pain, unspecified | + + | Coronary artery disease Coronary atherosclerosis of unspecified type of vessel, | | togiak or graft | + + | Pacemaker [...]
--- OUTSIDE RECORDS SUMMARY | ~2019-10-04 | XMS | Encounter Summary ---
Demographics + + + | Address | [address] | | | [place] [address] | + + + | Home Phone [...] Providers + +------+ + | Care Bar Staff Name | Role | Phone | + +------+ + PCP | Unavailable | + +------+ + Encounter Details +--------+ + + + + | Date | Type | Department | Care Team | Description | +--------+ + + + + | 09/24/ | [facility] | [facility] | Evan Gandara MD | | | 2005 | Encounter | MED CTR XRAY [address] | [address] [facility] | | | | | [place] | [place] | | | | | [place] [address] | [address] | | | | | [phone] | | | +--------+ + + + [...] | | | | | | [place] [address] | | | | | | [phone] | | | | | | | | +--------+ + + + + | 11/20/ | Implant | Cardiology | Daljit Singletary, | Remote Device | | 2018 | Monitor | | MD [address] | Interrogation | | | | | [address] [place], | (Primary Dx); | | | | | [place] [address] | Presence of | | | | | [phone] | permanent cardiac | | | | [...]
--- OUTSIDE RECORDS SUMMARY | ~2019-10-04 | XMS | Clinical Summary ---
Demographics + + + | Address | [address] | | | [place] [address] | + + + | Home Phone [...] Providers + +------+ + | Care Floor Space Allocator Name | Role | Phone | + [...] | | + + + +---------+------+------+-------+ | [place]-3 Fatty | CAPS, one capsule by | [...] | | | | | | | penobscot coronary | | | | | | | | artery of penobscot | | | | | | | [...] Overview: Lower back injury (From [facility]) 1980 1984 | + + + [...] artery disease involving penobscot coronary artery of | 12/21/2013 | | penobscot heart without angina pectoris | | + [...] attenuation cannot | | completely be ruled out.[facility] 12/25/13, shows non critical coronary | [...] | | CT Angiogram chest w/constrast 05/26/14 [facility] | + + + + + [...] back in 3 days to | | [place] for an attempt of ablation under general [...] IMPLANTED GENERATOR | | Medtronic DDD ADDR01 [id number] 06/14/09 RV LEAD Medtronic Active | | Bipolar CapSureFix 4076 [id number] 06/14/09 A LEAD Medtronic | | Active Bipolar CapSurFix 4076 [id number] 06/14/09 | + + + +---+ | [...] | Heart Cath, 02/29/2012, LVEF is 65%, [facility], Daljit Singletary, | | [facility] Myocardial Gated Stress Test, 05/25/2009, EF 53 | | % during rest and 52% during stress. [facility], | | [place], [place].Persantine Sestamibi Stress Test, 06/14/2008, LVEF is | | 60%, [facility], Daljit BrashersuwanL 12/25/13, shows noncritical | | [...] Plan: Nonobstructive CAD noted | | on [facility] from 2013, no EKG changes, and [...] | | | | unspecified ([facility]); | | | | | | [...] + + | Mother | | | [place] | | | | (Age | | [...] | | | | | | [place] [address] | | | | | | [phone] | | | | | | | | +--------+ + + + + | 11/20/ | Implant | Cardiology | Daljit Singletary, | Remote Device | | 2019 | Monitor | | [address] [facility] | Interrogation | | | | | [place], | (Primary Dx); | | | | | [place] [address] | Presence of | | | | | [phone] | permanent cardiac | | | | [...] Left: | COOK | | 09/27/ | [id number] | | - [id number]: | | [employer] | [employer] | | 2020 | / | | Qty: 1 on 04/13/2019 by | | | - [place] | | | /[id number] | | Matthew Uriarte MD at | | | | | | 56 | | [facility] | | | | | | | | [facility] | | | | | [...] +--------+ +---------+--------+ | MEDICARE | MEDICA | [id number] | 01/21/20 | [phone] | | Medica | | | RE | | 01-Pre | 5 | | re | | | PART A | | sent | | | | | | AND B | | | | | | + +--------+ +--------+ +---------+--------+ | MEDICARE | MEDICA | [id number] | 01/21/20 | [phone] | | Medica | | | RE | | 01-Pre | 5 | | re | | | PART A | | sent | | | | | | AND B | | | | | | + +--------+ +--------+ +---------+--------+ | AARP | AARP | [id number] | | [phone] | | Indemn | | | MDCR | | 016-Pr | 0 | | ity | | | SUPPL | | esent | | | | + +--------+ +--------+ +---------+--------+ | AARP | AARP | [id number] | 11/22/19 | [phone] | | Indemn [...] Person | Self | [birth year] | [address] | | Kirk | al/Fam | | 1959 | [phone] | [place], [place] | | | roxanne | | | 8 (Home) | [address] | + +--------+ +--------+ + + | Moe Sanchez | Person | Self | [birth year] | | [address] | | Kirk | al/Fam | | 1959 | [phone] | [place], [place] | | | roxanne | | | 8 (Home) | [address] | + +--------+ +--------+ + + | Moe Sanchez | Third | Self | [birth year] | | [address] | | Kirk | [employer] | | 9 | [phone] | [place] | | | Liabil | | | 3 (Home) | [address] | | | ity | | | | | + +--------+ +--------+ + + Advance Directives + + + + + | Type | Date Recorded | Patient | Explanation | | | | Hook Tender | | + + + + + | Power of | | | | | Ultrasonic Tester | | | | + + [...]
--- OUTSIDE RECORDS SUMMARY | ~2019-10-04 | XMS | Encounter Summary ---
Demographics + + + | Address | [address] | | | [place] [address] | + + + | Home Phone [...] Team Providers + +------+ + | Care Overedger Name | Role | Phone | + [...] 2016 | | CARDIOLOGY [address] | BANK APPRAISER [address] [place] | | | | | [place], | [place], [place] | | | | | [place] [address] | [id number] | | | | | [phone] | | | +--------+--------+ + + + [...] | | | | | | [place], | | | | | | [place] [address] | | | | | | [phone] | | | | | | | | +--------+ + + + + | 11/20/ | Implant | Cardiology | Daljit Singletary, | Remote Device | | 2018 | Monitor | | [address] | Interrogation | | | | | [place], | (Primary Dx); | | | | | [place] [address] | Presence of | | | | | [phone] | permanent cardiac | | | | [...]
--- OUTSIDE RECORDS SUMMARY | ~2019-10-04 | XMS | Encounter Summary ---
Demographics + + + | Address | [address] | | | [place] [address] | + + + | Home Phone [...] Providers + +------+ + | Care Executive Vice President And Chief Operating Officer Name | Role | Phone | [...] | CARDIOLOGY [address] | [address] | Interrogation | | | | [address] [place], | [place], | (Primary Dx); | | | | [place] [address] | [place] [address] | Presence of | | | | [phone] | [phone] | permanent cardiac | | | | [...] | | | | | | [place] [address] | | | | | | [phone] | | | | | | | | +--------+ + + + + | 11/20/ | Implant | Cardiology | Daljit Singletary, | Remote Device | | 2019 | Monitor | | [address] | Interrogation | | | | | [place], | (Primary Dx); | | | | | [place] [address] | Presence of | | | | | [phone] | permanent cardiac | | | | [...] remote PDF scanned into | | | [employer] for remote interrogation results. Data collected by [...]
--- OUTSIDE RECORDS SUMMARY | ~2019-10-04 | XMS | Encounter Summary ---
Demographics + + + | Address | [address] | | | [place] [address] | + + + | Home Phone [...] Team Providers + +------+ + | Care Producer Arborist Manager Name | Role | Phone | + +------+ + | Michael Amanda DO | PCP | | + +------+ + Encounter Details +--------+ + + + + | Date | Type | Department | Care Team | Description | +--------+ + + + + | 12/25/ | Hospital | [facility] | Daljit Singletary, | | | 2013 | Encounter | MED CTR XRAY [address] | | | | | [place] | [place], | | | | | [place] [address] | [place] [address] | | | | | [phone] | [phone] | | | | | | | [...] + + + +---------+ + + | [place]-3 Fatty | CAPS, one capsule by [...] | | | | | | [place] [address] | | | | | | [phone] | | | | | | | | +--------+ + + + + | 11/20/ | Implant | Cardiology | Anshujohnsoncherelle Shaistapawanotto, | Remote Device | | 2019 | Monitor | | [address] [facility] | Interrogation | | | | | [place], | (Primary Dx); | | | | | [place] [address] | Presence of | | | | | [phone] | permanent cardiac | | | | [...] + | [facility] | [place] | | Department [address] [place] [address] | [facility] | | [ rep [address]] [ rep [facility] | | st zip] Signed | - IMAGING | | | | | Patient Name: MOE GAY | | | Physician: MIGUELINA : 1960 Age: 53 Sex: M Unit | | | #: [id number] Exam Date: 12/25/13 Location: | | | SDS SDS-D Report #: [id number] Page: | | | %(RAD)RES..mtdd.print.filter("pg") of %(RAD) | | | RES..mtdd.print.filter("tpg") | | | | | | Accession Number: [id number] | | | LEFT HEART CATHETERIZATION, 12/25/2013 [...] was obtained | | | using #5 Algerian sheath in the right radial artery. Right heart cath | | | was not performed on this patient. Left ventriculography was | | | performed using #5 multipurpose diagnostic catheter. The selective | | | coronary angiography was then performed in several sagittal and | | | oblique projections using #5 multipurpose and #5 Algerian JL 3.5 | | | diagnostic catheters. [...] Transcribed | | | Date/Time: 12/25/2013 11:52 Industrial Safety And Health Technician: | | | <<Signature on File>> | | | Suwong | | | MD CLEOPATRA Singletary FASNanette12/25/13 1343 <Electronically signed by | | | Daljit Singletary MD, [facility], FAC, ADELINE, FASNC> Daljit | | | MD CLEOPATRA Singletary 12/25/13 1035 Industrial Safety And Health Technician: WhatsOpenx | | | Xnipvsubkpnse17/03/14 1152 | | + + + + + + + + | Performing | Address | City/State/Zipcode | Phone Number | | Organization | | | | + + + + + | [facility] | [address] | [place] | [phone] | | [facility] | | [address] | | | - IMAGING | | | | + + + + + documented in this encounter Visit Diagnoses Not on filedocumented in this encounter
--- OUTSIDE RECORDS SUMMARY | ~2019-10-04 | XMS | Encounter Summary ---
Demographics + + + | Address | [address] | | | [place] [address] | + + + | Home Phone [...] Providers + +------+ + | Care Stem Shaper Name | Role | Phone | + +------+ + PCP | Unavailable | + +------+ + Encounter Details +--------+ + + + + | Date | Type | Department | Care Team | Description | +--------+ + + + + | 11/05/ | [facility] | [facility] | Naresh Mckeon | | | 2009 | Encounter | MED CTR SLEEP | MD Chaya [address] | | | | | CENTER [address] | [place] | | | | | [place] | [place] [address] | | | | | [address] | [phone] | | | | | [phone] | | | +--------+ + + + [...] | | | | | | [place] [address] | | | | | | [phone] | | | | | | | | +--------+ + + + + | 11/20/ | Implant | Cardiology | Daljit Singletary, | Remote Device | | 2019 | Monitor | | MD [address] | Interrogation | | | | | [place], | (Primary Dx); | | | | | [place] [address] | Presence of | | | | | [phone] | permanent cardiac | | | | [...]
--- OUTSIDE RECORDS SUMMARY | ~2019-10-04 | XMS | Encounter Summary ---
Demographics + + + | Address | [address] | | | [place] [address] | + + + | Home Phone [...] Providers + +------+ + | Care Animal Husbandry Teacher Name | Role | Phone | [...] 2015 | | CARDIOLOGY [address] | ARCHEOLOGY PROFESSOR [address] | | | | | [place], | [place], [place] | | | | | [place] [address] | [address] | | | | | [phone] | | | +--------+--------+ + + + [...] W | | | | | | [place], | | | | | | [place] [address] | | | | | | [phone] | | | | | | | | +--------+ + + + + | 11/20/ | Implant | Cardiology | Daljit Singletary, | Remote Device | | 2018 | Monitor | | [address] | Interrogation | | | | | [place], | (Primary Dx); | | | | | [place] [address] | Presence of | | | | | [phone] | permanent cardiac | | | | [...]
--- OUTSIDE RECORDS SUMMARY | ~2019-10-04 | XMS | Encounter Summary ---
Demographics + + + | Address | [address] | | | [place] [address] | + + + | Home Phone [...] Team Providers + +------+ + | Care Nursing Educator Name | Role | Phone | [...] | | | [place] | [place] [address] | | | | | | [address] | Phone: | | | | | | Phone: | [phone] | | | | | | [phone] | Fax: | | | | | | Fax: | [phone] | | | | | | [phone] | | +--------+ + + + + [...] | diurnal enuresis | | | | [place], [place] | [place], [place] | (Primary Dx); BPH | | | | [address] | [address] | with | | | | [phone] | | obstruction/lower | | | | [...] had his license revoked by the [facility]. He has ed marijuana for his chronic [...] APNEA CONDS CLASSIFIED ELSEWHERE (12/15/2010); Ulcerative colitis ([facility]); Ches t pain; SINUS BRADYCARDIA; HEPATITIS B; PUD; FATTY LIVER DISEASE; SUBSTANCE ABUSE, MULTIPLE; Preventative health care (06/26/2013); Bladder troubles; Tuberculosis; Anginal pain ([facility]); St roke ([facility]); Prostate troubles; and Neurological disorder. Past Surgical [...] needed for Chest pain. 25 tablet 12 [place]-3 Fatty Acids (SALMON OIL-1000 PO) CAPS, one [...] Date/Time: 04/22/2012 16:56 Transcribed Date/Time: 04/22/2012 17:32 Ordnance Technician: <Electronically Signed by Jama Solis MD> [...] Date/Time: 04/23/2012 10:54 Transcribed Date/Time: 04/23/2012 11:06 Ordnance Technician: <Electronically Signed by Jama Solis MD> 04/24/12 5412 IMPRESSION: 1. Nocturnal and diurnal enuresis. I [...] still believe that the recommendations from [facility] neurosurgeon, Dr. Demarco, on 03/13/2014 would still [...] have not thoroughly proofread this note, and tanbark peeler erro rs may occur. CC: Kirk French [...] | | | | | | [place] [address] | | | | | | [phone] | | | | | | | | +--------+ + + + + | 11/20/ | Implant | Cardiology | Daljit Singletary, | Remote Device | | 2019 | Monitor | | [address] [facility] | Interrogation | | | | | [place], | (Primary Dx); | | | | | [place] [address] | Presence of | | | | | [phone] | permanent cardiac | | | | [...] 1.001 - 1.030 | | | | [place], | | | | | | UA, [...]
--- OUTSIDE RECORDS SUMMARY | ~2019-10-04 | XMS | Encounter Summary ---
Demographics + + + | Address | [address] | | | [place] [address] | + + + | Home Phone [...] [address] | | | | | | [place], [place] | (Fax) | | | | | [address] | | | | | | [phone] | | | +--------+ + + + [...] | | | | | | [place] [address] | | | | | | [phone] | | | | | | | | +--------+ + + + + | 11/20/ | Implant | Cardiology | Daljit Singletary, | Remote Device | | 2018 | Monitor | | [address] [facility] | Interrogation | | | | | [place], | (Primary Dx); | | | | | [place] [address] | Presence of | | | | | [phone] | permanent cardiac | | | | [...]
--- OUTSIDE RECORDS SUMMARY | ~2019-10-04 | XMS | Encounter Summary ---
Demographics + + + | Address | [address] | | | [place] [address] | + + + | Home Phone [...] [address] | | | | | [place], | [place], | | | | | [place] [address] | [place] [address] | | | | | [phone] | [phone] | | | | | | | [...] | | | | | | [place] [address] | | | | | | [phone] | | | | | | | | +--------+ + + + + | 11/20/ | Implant | Cardiology | Daljit Singletary, | Remote Device | | 2018 | Monitor | | [address] | Interrogation | | | | | [place], | (Primary Dx); | | | | | [place] [address] | Presence of | | | | | [phone] | permanent cardiac | | | | [...]
--- OUTSIDE RECORDS SUMMARY | ~2019-10-04 | XMS | Encounter Summary ---
Demographics + + + | Address | [address] | | | [place] [address] | + + + | Home Phone [...] Team Providers + +------+ + | Care Boilermaker Fitter Name | Role | Phone | [...] Unknown | | | | | [place], [place] | [phone] | | | | | [address] | | | | | | [phone] | | | +--------+ + + + [...] + + + +---------+ + + | [place]-3 Fatty | CAPS, one capsule by | [...] | | | | | | | #[id number], exp 07/2016 | | | | | [...] | | | | | | [place] [address] | | | | | | [phone] | | | | | | | | +--------+ + + + + | 11/20/ | Implant | Cardiology | Daljit Singletary, | Remote Device | | 2018 | Monitor | | MD [address] | Interrogation | | | | | [place], | (Primary Dx); | | | | | [place] [address] | Presence of | | | | | [phone] | permanent cardiac | | | | [...]
--- OUTSIDE RECORDS SUMMARY | ~2019-10-04 | XMS | Encounter Summary ---
Demographics + + + | Address | [address] | | | [place] [address] | + + + | Home Phone [...] + | 06/24/ | Telephone | [facility] | Dajlit Singletary, | Lab Order | | 2017 | | CARDIOLOGY [address] | MD [address] | | | | | [place], | [place], | | | | | [place] [address] | [place] [address] | | | | | [phone] | [phone] | | | | | | | [...] | | | | | | [place] [address] | | | | | | [phone] | | | | | | | | +--------+ + + + + | 11/20/ | Implant | Cardiology | Daljit Singletary, | Remote Device | 2018 | Monitor | | [facility] | Interrogation | | | | | [place], | (Primary Dx); | | | | | [place] [address] | Presence of | | | | | [phone] | permanent cardiac | | | | [...] 06/24/2018, Expires: | | | | | [place] coronary | 06/24/2019 | | | | | artery of [place] | | | | | | heart without angina | | | | | | pectoris | | | | | | Hyperlipidemia, | | | | | | mixed | | + +------+--------+ + + documented as of this encounter Visit Diagnoses + + | Diagnosis | + + | Coronary artery disease involving [place] coronary artery of [place] heart without | | angina pectoris - Primary | + + | Hyperlipidemia, mixed Mixed hyperlipidemia | + + documented in this encounter"
--- OUTSIDE RECORDS SUMMARY | ~2019-10-04 | XMS | Encounter Summary ---
Demographics + + + | Address | [address] | | | [place] [address] | + + + | Home Phone [...] Providers + +------+ + | Care Art Model Name | Role | Phone | + +------+ + PCP | Unavailable | + +------+ + Encounter Details +--------+ + + + + | Date | Type | Department | Care Team | Description | +--------+ + + + + | 01/15/ | [facility] | [facility] | Emmanuel Daniel MD | | | 1994 | Encounter | MED CTR GENERIC OP | [address] | | | | | CONV DEPT [address] | [address] [place] | | | | | [place], | [address] | | | | | [place] [address] | | | | | | [phone] | | | +--------+ + + + [...] W | | | | | | [place], | | | | | | [place] [address] | | | | | | [phone] | | | | | | | | +--------+ + + + + | 11/20/ | Implant | Cardiology | Daljit Singletary, | Remote Device | | 2019 | Monitor | | MD [address] | Interrogation | | | | | [place], | (Primary Dx); | | | | | [place] [address] | Presence of | | | | | [phone] | permanent cardiac | | | | [...]
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
== END 2019-10-04 15:33 | disposition home or self-care (01) ==
LOC: ED 12:02
DX: K52.9 Noninfective gastroenteritis and colitis, unspecified (principal); I10 Essential (primary) hypertension; Z88.0 Allergy status to penicillin; Z88.5 Allergy status to narcotic agent; Z88.8 Allergy status to other drugs, medicaments and biological substances; Z88.1 Allergy status to other antibiotic agents; Z79.899 Other long term (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; Z79.82 Long term (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
CPT/HCPCS: 80053; 81001; 83690; 85025; 96361; 96374; 96375; 99284-25; J1885; J2405; J7121

== ENCOUNTER 2019-10-27 22:49 | Emergency (ER) | payer MEDICARE ==
[~2019-10-27] VITALS: Ht 193 cm; Wt 98.9 kg
--- OUTSIDE RECORDS SUMMARY | ~2019-10-27 | XMS | Encounter Summary ---
Demographics + + + | Address | [address] | | | [place] [address] | + + + | Home Phone | | + + + | Preferred Language | Unknown | + + + | Marital Status | | + + + | Caodaism Affiliation | 1013 | + + + | Race | Unknown | + + + | Ethnic Group | Unknown | + + + Author + + + | Author | [facility] | | | and [place] | + + + | Organization | [facility] | | | [...] Team Providers + +------+ + | Care Intermission Coordinator Name | Role | Phone | + +------+ + | Kirk French MD | PCP | | + +------+ + Encounter Details +--------+ + + + + | Date | Type | Department | Care Team | Description | +--------+ + + + + | 12/02/ | Episode | [facility] | Kaylynn Copeland | | | 2018 | Changes | GASTROENTEROLOGY | MONROE Cardenas | | | | | [address] | | | | | | [address] [place] | | | | | | [address] | | | | | | [phone] | | | +--------+ + + + [...] +---------+ + | No | | | Occassionally | + + [...] W | | | | | | [place], | | | | | | [place] [address] | | | | | | [phone] | | | | | | | | +--------+ + + + + | 11/20/ | Implant | Cardiology | Daljit Singletary, | Remote Device | | 2018 | Monitor | | [address] [facility] | Interrogation | | | | | [place], | (Primary Dx); | | | | | [place] [address] | Presence of | | | | | [phone] | permanent cardiac | | | | [...]
--- OUTSIDE RECORDS SUMMARY | ~2019-10-27 | XMS | Encounter Summary ---
Demographics + + + | Address | [address] | | | [place] [address] | + + + | Home Phone | | + + + | Preferred Language | Unknown | + + + | Marital Status | | + + + | Zoroastrianism Affiliation | 1013 | + + + [...] Team Providers + +------+ + | Care Glazier Metal Furniture Name | Role | Phone | + [...] Description | +--------+--------+ + + + | 04/04/ | Refill | [facility] [place] | Daljit Singletary, | Medication Refill | | 2019 | | CARDIOLOGY [address] | MD [address] | | | | | [place], | [place], | | | | | [place] [address] | [place] [address] | | | | | [phone] | [phone] | | | | | | | [...] [place], | | | | | | [place] [address] | | | | | | [phone] | | | | | | | | +--------+ + + + + | 11/20/ | Implant | Cardiology | Daljit Singletary, | Remote Device | | 2019 | Monitor | | MD [address] [place] | Interrogation | | | | | [address] [place], | (Primary Dx); | | | | | [place] [address] | Presence of | | | | | [phone] | permanent cardiac | | | | [...]
--- OUTSIDE RECORDS SUMMARY | ~2019-10-27 | XMS | Encounter Summary ---
Demographics + + + | Address | [address] | | | [place] [address] | + + + | Home Phone | | + + + | Preferred Language | Unknown | + + + | Marital Status | | + + + | Jainism Affiliation | 1013 | + + + | Race | Unknown | + + + | Ethnic Group | Unknown | + + + Author + + + | Author | [facility] | | | and [place] | + + + | Organization | [facility] | | [...] Team Providers + +------+ + | Care Mold Stripper Name | Role | Phone | + +------+ + | Michael Amanda DO | PCP | | + +------+ + Encounter Details +--------+ + + + + | Date | Type | Department | Care Team | Description | +--------+ + + + + | 05/11/ | Hospital | [facility] | Conversion | Lumbago; | | 2013 | Encounter | [facility] | Transaction, | Postlaminectomy | | | | CLINICAL DECISION | Provider Unknown | syndrome, cervical | | | | [address] | | region; Cervicalgia | | | | [place], [place] | (Fax) | | | | | [address] | Cesar, | | | | | [phone] | MD Gamaliel | | +--------+ + + + + [...] + + + +---------+ + + | [place]-3 Fatty | CAPS, one capsule by | [...] +---------+ + + | amLODIPine | Take 2 tablets by | 60 | 6 | 04/09/20 | | | (NORVASC) 5 mg | mouth Daily. | tablet | [...] tablet by | 30 | 6 | 04/06/20 | | | (TOPROL-XL) 200 MG | mouth Daily. | tablet | | 14 | 4 | | 24 hr tablet [...] tablet by | 30 | 6 | 04/06/20 | | | (PROTONIX) 40 mg | mouth Daily. | tablet | | 14 | 5 | | tablet | | | | | | + + + +---------+ + + | pravastatin | take 1 tablet by | 90 | 1 | 03/16/20 | | | (PRAVACHOL) 40 MG | mouth once daily | tablet | | 14 | 4 [...] documented as of this encounter Progress Notes Conversion Transaction, Provider Unknown - 05/11/2014 3:05 PM PDTFormatting of this note m ight be different from the original. Nurse Progress Note by Meliza Macario RN at 05/11/14 1500 Author: Meliza Macario RN Service: (none) Author Type: Registered Nurse Filed: 05/11/14 1506 Date of Service: 05/11/14 150 Status: Signed Outpatient Pharmacy Manager: Meliza Macario RN (Registered Nurse) Pt discharged home, discharge instructions were reviewed, prescriptions provided, and quest ions answered. IV discontinued- gauze and tape applied to site. onver fatemeh Transaction, Provider Unknown - 05/11/2014 2:23 PM PDT Nurse Progress Note by Heike Mckeon RN at 05/11/14 1425 Author: Heike Mckeon RN Service: (none) Author Type: Registered Nurse Filed: 05/11/14 1424 Date of Service: 05/11/14 142 Status: Signed Outpatient Pharmacy Manager: Heike Mckeon RN (Registered Nurse) Called doctor Tanya for orders for and dc plan, he put in orders and said he would be by to check on the patient within an hour. Heike Mckeon docume nted in this encounter Plan of Treatment +--------+ + + + + | Date | Type | Specialty | Care Team | Description | +--------+ + + + + | 11/09/ | Office | Cardiology | Silvia, | | | 2019 | Visit | | [address] | | | | | | [place], | | | | | | [place] [address] | | | | | | [phone] | | | | | | | | +--------+ + + + + | 11/20/ | Implant | Cardiology | Daljit Singletary, | Remote Device | | 2018 | Monitor | | [facility] | Interrogation | | | | | [facility] [place], | (Primary Dx); | | | | | [place] [address] | Presence of | | | | | [phone] | permanent cardiac | | | | [...] +--------+ + + + | CT CERVICAL THORACIC | Routin | 05/11/2014 | | Results for this | | LUMBAR SPINE W OR | e | 12:52 PM | | procedure are in the | | WO CONTRAST | | PDT | | results section. | + +--------+ + + + documented in this encounter Results CT Cervical Thoracic Lumbar Spine (05/11/2014 12:52 PM PDT) + + | Specimen | + + | | + + + + + | Impressions | Performed At | + + + | 1. At least 4.5 cm fusiform aneurysm of the ascending aorta. | | | 2. Mild borderline narrowing of the spinal canal at C5-C6, the ventral | | | cord may be abutted by the endplate margin at the fused C5-C6 level. | | | 3. There is a relative blind spot of the study at the level of the | | | anterior C6-C7 fusion. Beam hardening artifact limits interrogation | | | of the anterior portion of the spinal canal at this level. There is | | | straightening of the cervical canal across the anterior fusion, | | | slight bowing of the anterior fixation plate. 4. Some mild | | | narrowing of the canal just above the fusion at C4-C6. Short pedicles | | | and subtle multilevel malalignments at C3-C4 and C4-C5 are | | | contributory, but the CSF ventral to the cord seems preserved at these | | | levels. There is no atrophy of the cord or high-grade cervical | | | disease above or below this. 5. Transitional anatomy of the | | | lumbosacral junction with a large S1-S2 disc. 6. A posterior | | | fusion at L5-S1 is intact, there is no significant spinal stenosis of | | | the lumbar canal. There is at most moderate foraminal stenosis at the | | | L5-S1 junction. Electronically signed by Cirilo Martínez MD on | | | 05/11/2014 6:31 PM | | + + + + + + | Narrative | Performed At | + + + | HISTORY: 54 year-old male, postsurgical pain syndrome TECHNIQUE: | | | 1. CT evaluation of the cervical thoracic and lumbar spine after | | | the administration of approved dose of contrast to prove for | | | intrathecal use. See the bed and breakfast operator examination for details of the | | | injection. Bone algorithm noncontrast technique with reformatted | | | sagittal and coronal images. 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 Anterior and posterior fusion of the lower | | | cervical spine, anterior fixation plate at C6-C7. Disc prosthesis at | | | C5-C6 and posterior fusion at 3 levels, C6-T1. Posterior lumbar | | | fusion and disc prosthesis at L5-S1. The prior discogram is orienting, | | | for purposes of this examination a large S1-S2 disc is presumed. | | | Paraspinal soft tissues, to limitations of collimation and | | | technique-reveal 1. a aneurysm of the ascending aorta, measures | | | maximally about 4.5 cm here. Not fully evaluated. By patient's report, | | | this is known. 2. Coronary calcification. Some mucosal thickening | | | of the inferior right maxillary sinus. The patient is post functional | | | endoscopic sinus surgery, ethmoidectomy. 3. Nonobstructive small | | | calcifications in the lower pole of the left kidney. CERVICAL | | | SPINE: Retrolisthesis of L3 relative to L4 by approximately 3-4 | | | mm. Disc space narrowing at this level also. Retrolisthesis of C4 | | | relative to C5 by 4 mm. No significant disc disease, but the anterior | | | thecal sac is indented at these levels. Hardware: Anterior | | | fixation plate, vertebral body device and posterior fusion with bone | | | grafting from C6-T1. There is a mature fusion and disc prosthesis at | | | C5-C6. The ventral cord may be abutted at this level, note image 4 | | | series 5. There is some mild narrowing of the spinal canal, short | | | pedicles contribute. The C6-C7 interval is not seen well on the | | | reconstructed images. The anterior fixation plate approximating C6-C7 | | | seems somewhat convex, slightly bowed making an angle of about 20 | | | degrees. There is slight anterior translocation of C7 relative to T1 | | | by about 2 mm but contrast resolution is somewhat lost on sagittal | | | reconstructions. The posterior fixation hardware tracks from C6-T1 | | | and the screws seem well seated, intraosseous and appropriate without | | | evidence of loosening. Bone grafting material, without convincing | | | evidence of fracture. There is an abortive right C7 cervical rib. | | | CANAL AND FORAMINA. On axial imaging the csf ventral and | | | posterior to the cord is preserved at all levels above the anterior | | | fusion plate. Contrast resolution is lost on some images through the | | | fusion, but there is no high-grade spinal stenosis and the findings | | | are thought explained on the basis of artifact for example on images | | | 147 through 160 through the fusion. This is however a blind spot | | | of the study. There are somewhat short pedicles from C5-C7 and | | | this contributes to mild narrowing of the canal. There is | | | bilateral moderate foraminal stenosis at C6-C7, again this could be | | | underestimated. Other levels of spinal canal narrowing by bone are | | | lesser. There is some right lateral uncovertebral joint arthropathy at | | | C4-C5 however. THORACIC SPINE: Thoracic column is normal in | | | alignment. There is disc space narrowing. There is no fracture or | | | compression. Subtle disc bulges, T5-T6-T7-T8, without material impact | | | upon the canal or cord, although there is some indentation of thecal | | | sac such as from the anterior left of midline at the T6-T7 level, | | | this is an example. Smaller but similar disc bulges of less than 2 | | | mm are present throughout the thoracic spine as far caudad as T9-T10 | | | Subtle rib fracture the margin of this examination. Nonacute. | | | Pseudoarthrosis and old fracture about the lateral right 10th rib. | | | LUMBAR SPINE: Effusion here is presumed to be at L5-S1 where | | | there is intact posterior hardware, disc prosthesis and endplate | | | irregularity. There is a large S1-S2 disc with transitional anatomy of | | | the lumbosacral junction. There is mild narrowing of the thoracic | | | canal beginning at L4-L5 due to short pedicles and facet arthropathy. | | | Through the fusion there is no evidence of high-grade stenosis, | | | the nerve roots fill well. The hardware is seemingly intact. There is | | | a most mild to moderate stenosis of the neural foramina at the level | | | of the fusion. Multifactorial degenerative. Likely hemangioma in | | | the left sacral ala.. Dorsal scarring, expected postprocedural | | | changes. This examination will not be reasonable sensitivity for fluid | | | or inflammatory change about the adjacent soft tissues but there is | | | at least some scarring felt demonstrated | | + + + + + | Procedure Note | + + | Kevin, Rad Conversion - 07/07/2019 10:30 PM PDT HISTORY: 54 year-old male, postsurgical | | pain syndrome TECHNIQUE: 1. CT evaluation of the cervical thoracic and lumbar spine | | after the administration of approved dose of contrast to prove for intrathecal use. See | | the bed and breakfast operator examination for details of the injection. Bone algorithm noncontrast | | technique with reformatted sagittal and coronal images. 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 Anterior and | | posterior fusion of the lower cervical spine, anterior fixation plate at C6-C7. Disc | | prosthesis at C5-C6 and posterior fusion at 3 levels, C6-T1. Posterior lumbar fusion and | | disc prosthesis at L5-S1. The prior discogram is orienting, for purposes of this | | examination a large S1-S2 disc is presumed. Paraspinal soft tissues, to limitations of | | collimation and technique-reveal 1. a aneurysm of the ascending aorta, measures | | maximally about 4.5 cm here. Not fully evaluated. By patient's report, this is known. 2. | | Coronary calcification. Some mucosal thickening of the inferior right maxillary sinus. | | The patient is post functional endoscopic sinus surgery, ethmoidectomy. 3. | | Nonobstructive small calcifications in the lower pole of the left kidney. CERVICAL | | SPINE: Retrolisthesis of L3 relative to L4 by approximately 3-4 mm. Disc space narrowing | | at this level also. Retrolisthesis of C4 relative to C5 by 4 mm. No significant disc | | disease, but the anterior thecal sac is indented at these levels. Hardware: Anterior | | fixation plate, vertebral body device and posterior fusion with bone grafting from | | C6-T1. There is a mature fusion and disc prosthesis at C5-C6. The ventral cord may be | | abutted at this level, note image 4 series 5. There is some mild narrowing of the spinal | | canal, short pedicles contribute. The C6-C7 interval is not seen well on the | | reconstructed images. The anterior fixation plate approximating C6-C7 seems somewhat | | convex, slightly bowed making an angle of about 20 degrees. There is slight anterior | | translocation of C7 relative to T1 by about 2 mm but contrast resolution is somewhat | | lost on sagittal reconstructions. The posterior fixation hardware tracks from C6-T1 and | | the screws seem well seated, intraosseous and appropriate without evidence of loosening. | | Bone grafting material, without convincing evidence of fracture. There is an abortive | | right C7 cervical rib. CANAL AND FORAMINA. On axial imaging the csf ventral and | | posterior to the cord is preserved at all levels above the anterior fusion plate. | | Contrast resolution is lost on some images through the fusion, but there is no | | high-grade spinal stenosis and the findings are thought explained on the basis of | | artifact for example on images 147 through 160 through the fusion. This is however a | | blind spot of the study. There are somewhat short pedicles from C5-C7 and this | | contributes to mild narrowing of the canal. There is bilateral moderate foraminal | | stenosis at C6-C7, again this could be underestimated. Other levels of spinal canal | | narrowing by bone are lesser. There is some right lateral uncovertebral joint | | arthropathy at C4-C5 however. THORACIC SPINE: Thoracic column is normal in alignment. | | There is disc space narrowing. There is no fracture or compression. Subtle disc bulges, | | T5-T6-T7-T8, without material impact upon the canal or cord, although there is some | | indentation of thecal sac such as from the anterior left of midline at the T6-T7 level, | | this is an example. Smaller but similar disc bulges of less than 2 mm are present | | throughout the thoracic spine as far caudad as T9-T10 Subtle rib fracture the margin of | | this examination. Nonacute. Pseudoarthrosis and old fracture about the lateral right | | 10th rib. LUMBAR SPINE: Effusion here is presumed to be at L5-S1 where there is intact | | posterior hardware, disc prosthesis and endplate irregularity. There is a large S1-S2 | | disc with transitional anatomy of the lumbosacral junction. There is mild narrowing of | | the thoracic canal beginning at L4-L5 due to short pedicles and facet arthropathy. | | Through the fusion there is no evidence of high-grade stenosis, the nerve roots fill | | well. The hardware is seemingly intact. There is a most mild to moderate stenosis of the | | neural foramina at the level of the fusion. Multifactorial degenerative. Likely | | hemangioma in the left sacral ala.. Dorsal scarring, expected postprocedural changes. | | This examination will not be reasonable sensitivity for fluid or inflammatory change | | about the adjacent soft tissues but there is at least some scarring felt demonstrated | | IMPRESSION: 1. At least 4.5 cm fusiform aneurysm of the ascending aorta. 2. Mild | | borderline narrowing of the spinal canal at C5-C6, the ventral cord may be abutted by | | the endplate margin at the fused C5-C6 level. 3. There is a relative blind spot of the | | study at the level of the anterior C6-C7 fusion. Beam hardening artifact limits | | interrogation of the anterior portion of the spinal canal at this level. There is | | straightening of the cervical canal across the anterior fusion, slight bowing of the | | anterior fixation plate. 4. Some mild narrowing of the canal just above the fusion at | | C4-C6. Short pedicles and subtle multilevel malalignments at C3-C4 and C4-C5 are | | contributory, but the CSF ventral to the cord seems preserved at these levels. There is | | no atrophy of the cord or high-grade cervical disease above or below this. 5. | | Transitional anatomy of the lumbosacral junction with a large S1-S2 disc. 6. A posterior | | fusion at L5-S1 is intact, there is no significant spinal stenosis of the lumbar canal. | | There is at most moderate foraminal stenosis at the L5-S1 junction. Electronically | | signed by Cirilo Martínez MD on 05/11/2014 6:31 PM | |There is mild narrowing of the thoracic canal beginning at L4-L5 due to short pedicles and facet arthropathy. | | | |Through the fusion there is no evidence of high-grade stenosis, the nerve roots fill well. The hardware is seemingly intact. There is a most mild to moderate stenosis of the neural fo ramina at the level of the fusion. Multifactorial degenerative. | | | |Likely hemangioma in the left sacral ala.. Dorsal scarring, expected postprocedural changes . This examination will not be reasonable sensitivity for fluid or inflammatory change about the adjacent soft tissues but there is at least some scarring felt | |demonstrated | | | |IMPRESSION: | | | |1. At least 4.5 cm fusiform aneurysm of the ascending aorta. | | | |2. Mild borderline narrowing of the spinal canal at C5-C6, the ventral cord may be abutted by the endplate margin at the fused C5-C6 level. | | | |3. There is a relative blind spot of the study at the level of the anterior C6-C7 fusion. B eam hardening artifact limits interrogation of the anterior portion of the spinal canal at t his level. There is straightening of the cervical canal across the | |anterior fusion, slight bowing of the anterior fixation plate. | | | |4. Some mild narrowing of the canal just above the fusion at C4-C6. Short pedicles and subt le multilevel malalignments at C3-C4 and C4-C5 are contributory, but the CSF ventral to the cord seems preserved at these levels. | | | |There is no atrophy of the cord or high-grade cervical disease above or below this. | | | |5. Transitional anatomy of the lumbosacral junction with a large S1-S2 disc. | | | |6. A posterior fusion at L5-S1 is intact, there is no significant spinal stenosis of the nina mbar canal. There is at most moderate foraminal stenosis at the L5-S1 junction. | | | | | + + documented in this encounter Visit Diagnoses + + | Diagnosis | + + | Lumbago | + + | Postlaminectomy syndrome, cervical region | + + | Cervicalgia | + + documented in this encounter"
--- OUTSIDE RECORDS SUMMARY | ~2019-10-27 | XMS | Encounter Summary ---
Demographics + + + | Address | [address] | | | [place] [address] | + + + | Home Phone | | + + + | Preferred Language | Unknown | + + + | Marital Status | | + + + | Mormonism Affiliation | 1013 | + + + | Race | Unknown | + + + | Ethnic Group | Unknown | + + + Author + + + | Author | [facility] | | | and [place] | + + + | Organization | [facility] | | | [...] Team Providers + +------+ + | Care Fire Operations Forester Name | Role | Phone | + +------+ + | Kirk French MD | PCP | | + +------+ + Encounter Details +--------+ + + + + | Date | Type | Department | Care Team | Description | +--------+ + + + + | 11/03/ | Imaging | [facility] | Provider, | | | 2017 | Exam | [facility] | [facility] [address] | | | | | IMAGING | [place] | | | | | [phone] | [place] [address] | | +--------+ + + + + [...] [place], | | | | | | [place] [address] | | | | | | [phone] | | | | | | | | +--------+ + + + + | 11/20/ | Implant | Cardiology | Daljit Singletary, | Remote Device | | 2019 | Monitor | | [facility] | Interrogation | | | | | [facility] [place], | (Primary Dx); | | | | | [place] [address] | Presence of | | | | | [phone] | permanent cardiac | | | | [...] | + +--------+ + + + | US ABDOMEN LIMITED | Routin | 01/07/2017 | | Results for this | | | e | 1:15 PM | | procedure are in the | | | | PST | | results section. | + +--------+ + + + documented in this encounter Results US Abdomen Limited (01/07/2017 1:15 PM PST) + + | Specimen | + + | | + + + + + | Narrative | Performed At | + + + | External films | [facility] | | for comparison only - no result from [place]. | | + + + + +---------+ + + | Performing | Address | City/State/Zipcode | Phone Number | | Organization | | | | + +---------+ + + | [facility] | | | | + +---------+ + + documented in this encounter Visit Diagnoses Not on filedocumented in this encounter"
--- OUTSIDE RECORDS SUMMARY | ~2019-10-27 | XMS | Encounter Summary ---
Demographics + + + | Address | [address] | | | [place] [address] | + + + | Home Phone | | + + + | Preferred Language | Unknown | + + + | Marital Status | | + + + | Restorationism Affiliation | 1013 | + + + | Race | Unknown | + + + | Ethnic Group | Unknown | + + + Author + + + | Author | [facility] | | | and [place] | + + + | Organization | [facility] | | [...] Providers + +------+ + | Care District Administrative Assistant Name | Role | Phone | [...] Michael Amanda, | Medication Refill | | 2011 | | [facility] [place] | DO [address] | | | | | [address] | [place] | | | | | [place] | [address] | | | | | [address] | | | | | | [phone] | | | +--------+--------+ + + + [...] [place], | | | | | | [place] [address] | | | | | | [phone] | | | | | | | | +--------+ + + + + | 11/20/ | Implant | Cardiology | Daljit Singletary, | Remote Device | | 2019 | Monitor | | [facility] | Interrogation | | | | | [facility] [place], | (Primary Dx); | | | | | [place] [address] | Presence of | | | | | [phone] | permanent cardiac | | | | | | pacemaker; | | | | | | Sinoatrial node | | | | | | dysfunction (HCC) | | | | | | with symptomatic | | | | | | bradycardia | +--------+ + + + + documented as of this encounter Visit Diagnoses + + | Diagnosis | + + | Hypoglycemia - Primary Hypoglycemia, unspecified | + + documented in this encounter"
--- OUTSIDE RECORDS SUMMARY | ~2019-10-27 | XMS | Encounter Summary ---
Demographics + + + | Address | [address] | | | [place] [address] | + + + | Home Phone | | + + + | Preferred Language | Unknown | + + + | Marital Status | | + + + | Sabianism Affiliation | 1013 | + + + | Race | Unknown | + + + | Ethnic Group | Unknown | + + + Author + + + | Author | [facility] | | | and [place] | + + + | Organization | [facility] | | [...] Team Providers + +------+ + | Care Windshield Installer Name | Role | Phone | + +------+ + | Kirk French MD | PCP | | + +------+ + Encounter Details +--------+ + + + + | Date | Type | Department | Care Team | Description | +--------+ + + + + | 06/19/ | Orders Only | [facility] | Fabrice Hylton, | Abnormal weight | | 2019 | | SYSTEM GENERIC OP | MD [address] | loss; Anxiety | | | | CONVERSION [address] [place], [place] | disorder; Chronic | | | | [address] [place], [place] | [address] | pain syndrome; | | | | [address] | | Obesity; Neuralgia | | | | [phone] | | and neuritis, | | | | | | unspecified; | | | | | | Cannabis abuse, | | | | | | uncomplicated; Major | | | | | | depressive | | | | | | disorder, single | | | | | | episode | +--------+ + + + + Social [...] [address] | | | | | | [place], | | | | | | [place] [address] | | | | | | [phone] | | | | | | | | +--------+ + + + + | 11/20/ | Implant | Cardiology | Daljit Singletary, | Remote Device | | 2019 | Monitor | | [address] | Interrogation | | | | | [place], | (Primary Dx); | | | | | [place] [address] | Presence of | | | | | [phone] | permanent cardiac | | | | [...] | | + +------+--------+ + + | External Lab: Occult | Lab | Routin | Abnormal weight | Expected: | | Blood, Screening | | e | loss Anxiety | 11/25/2018, Expires: | | | | | disorder Chronic | 11/25/2019 | | | | | pain syndrome | | | | | | Obesity Neuralgia | | | | | | and neuritis, | | | | | | unspecified | | | | | | Cannabis abuse, | | | | | | uncomplicated Major | | | | | | depressive | | | | | | disorder, single | | | | | | episode | | + +------+--------+ + + documented as of this encounter Visit Diagnoses + + | Diagnosis | + + | Abnormal weight loss Loss of weight | + + | Anxiety disorder Anxiety state, unspecified | + + | Chronic pain syndrome | + + | Obesity Obesity, unspecified | + + | Neuralgia and neuritis, unspecified | + + | Cannabis abuse, uncomplicated Cannabis abuse, unspecified | + + | Major depressive disorder, single episode Major depressive disorder, single episode, | | unspecified | + + documented in this encounter"
--- OUTSIDE RECORDS SUMMARY | ~2019-10-27 | XMS | Encounter Summary ---
Demographics + + + | Address | [address] | | | [place] [address] | + + + | Home Phone [...] Team Providers + +------+ + | Care Lab Aid Name | Role | Phone | + [...] + + | 06/06/ | Office | [facility] | Silvia, | Essential | | 2019 | Visit | CARDIOLOGY [address] | PARISA [place] [address] | hypertension | | | | [place], | [place], | (Primary Dx); | | | | [place] [address] | [place] [address] | Sinoatrial node | | | | [phone] | [phone] | dysfunction (HCC) | | | | | | with symptomatic | | | | | | bradycardia; | | | | | | Symptomatic PVCs; | | | | | | Tachycardia; | | | | | | Coronary artery | | | | | | disease involving | | | | | | [place] coronary | | | | | | artery of [place] | | | | | | heart [...] encounter Patient Instructions Patient Instructions Julia Allen, Fast Food Manager - 06/06/2019 2:15 PM PDT1. Take a [...] of -critical coronary artery dise ase involving [place] coronary artery of [place] heart without angina pectoris, essential hype rtension, [...] was seen in the emergency department at [facility] in [place] due to chest pain, no medication changes at that time. On 06/02/2019 he was seen here in the [facility] department with chest pain, irregular heart [...] Preventative health care Coronary artery disease involving [place] coronary artery of [place] heart without angina pectoris Cannabis abuse, daily [...] 3RD DOSE, CALL 911 100 tablet 3 [place]-3 Fatty Acids (SALMON OIL-1000 PO) CAPS, one capsule by mouth daily twice daily ondansetron (ZOFRAN ODT) 4 mg disintegrating tablet Take 4 mg by mouth every 8 hours as needed for Nausea. ONE TOUCH DELICA LANCETS [facility] Check glucose as needed for hypoglycemia 100 [...] reviewed during visit today primarily from [facility]: LIPID Lab Results Component Value Date TRIG [...] BNP 48 06/02/[address] [facility] for emergency department visit o n 06/02/2019 which is summarized in the HPI. RESULTS- I reviewed reports from [facility]: Ct Abdomen Pelvis W Contrast Result Date: [...] ASSESSMENT: 1. Non-critical Coronary artery disease involving [place] coronary artery of [place] heart [facility] angina pectoris: A.Normal exercise sestamibi stress [...] performed by Dr Juan Diego Gambino at [facility] on 01/30/2013.Patient had spontaneous PVC'sfr om [...] to go back in 3 days to [place] for an attempt of ablation under general [...] a normal stable device function. Estimated remaining [facility] longevity is 3.5 years. D. Device [...] visit, or sooner with concerns. Julia Clemente, Fast Food Manager am acting as a scribe on behalf of, and in the presenc e of PARISA Lomas. - Reji Church 06/06/2019 15:10 Janeen Clemente ARNP, personally performed the services described in this documentati on, as scribed in my presence and it is both accurate and complete. -PARISA Lomas 06/06/2019 Portions of this chart may have been created with [employer] voice recognition software. Occasi onal wrong-word or [...] [place], | | | | | | [place] [address] | | | | | | [phone] | | | | | | | | +--------+ + + + + | 11/20/ | Implant | Cardiology | Sydni Singletary, | Remote Device | | 2018 | Monitor | | MD [place] | Interrogation | | | | | [place], | (Primary Dx); | | | | | [place] [address] | Presence of | | | | | [phone] | permanent cardiac | | | | [...] MD | | | | | | ([id number]) on 06/06/2019 | | | | | [...] + + | Coronary artery disease involving [place] coronary artery of [place] heart without | | angina pectoris | + + | Syncope, unspecified syncope type | + + | Ascending thoracic aortic aneurysm (HCC) Thoracic aneurysm without mention of rupture | + + | Hyperlipidemia, mixed Mixed hyperlipidemia | + + documented in this encounter
--- OUTSIDE RECORDS SUMMARY | ~2019-10-27 | XMS | Encounter Summary ---
Demographics + + + | Address | [address] | | | [place] [address] | + + + | Home Phone [...] Team Providers + +------+ + | Care Data Lead Name | Role | Phone | + +------+ + | Kirk French MD | PCP | | + +------+ + Encounter Details +--------+ + + + + | Date | Type | Department | Care Team | Description | +--------+ + + + + | 06/09/ | Orders Only | [facility] | [place], | Coronary artery | | 2016 | | CARDIOLOGY [address] | JaneenPARISA [address] | disease involving | | | | [place], | [place], | [place] coronary | | | | [place] [address] | [place] [address] | artery of [place] | | | | [phone] | [phone] | heart without angina | | | | | | pectoris (Primary | | | | | | Dx); Essential | | | | | | hypertension with | | | | | | goal blood pressure | | | | | | less than 130/80 | +--------+ + + + + Social [...] [place], | | | | | | [place] [address] | | | | | | [phone] | | | | | | | | +--------+ + + + + | 11/20/ | Implant | Cardiology | Daljit Singletary, | Remote Device | | 2018 | Monitor | | [facility] | Interrogation | | | | | [place], | (Primary Dx); | | | | | [place] [address] | Presence of | | | | | [phone] | permanent cardiac | | | | | | pacemaker; | | | | | | Sinoatrial node | | | | | | dysfunction (HCC) | | | | | | with symptomatic | | | | | | bradycardia | +--------+ + + + + documented as of this encounter Results ECG 12 lead (06/23/2016 1:12 PM PDT) + + + + + + | Component | Value | Ref Range | Performed | Pathologist | | | | | At | Signature | + + + + + + | VENTRICULAR | 76 | BPM | [facility] | | | RATE EKG | | | | | + + + + + + | ATRIAL RATE | 76 | BPM | [facility] | | + + + + + + | P-R | 224 | ms | [facility] | | | INTERVAL | | | | | + + + + + + | QRS | 98 | ms | [facility] | | | DURATION | | | | | + + + + + + | Q-T | 376 | ms | [facility] | | | INTERVAL | | | | | + + + + + + | Q-T | 423 | ms | [facility] | | | INTERVAL | | | | | | (CORRECTED) | | | | | + + + + + + | P WAVE AXIS | 29 | degrees | [facility] | | + + + + + + | QRS AXIS | 57 | degrees | [facility] | | + + + + + + | T AXIS | 33 | degrees | [facility] | | + + + + + + | INTERPRETAT | Atrial-paced rhythm with | | [facility] | | | ION TEXT | prolonged AV | | | | | | conductionAbnormal | | | | | | ECGWhen compared with | | | | | | ECG of 29-AUG-2015 | | | | | | 12:38,No significant | | | | | | change was | | | | | | foundConfirmed by | | | | | | DALJIT SINGLETARY MD | | | | | | ([id number]) on 06/23/2016 | | | | | | 2:08:15 PM | | | | + + [...] + + | Coronary artery disease involving [place] coronary artery of [place] heart without | | angina pectoris - Primary | + + | Essential hypertension with goal blood pressure less than 130/80 | + + documented in this encounter"
--- OUTSIDE RECORDS SUMMARY | ~2019-10-27 | XMS | Encounter Summary ---
Demographics + + + | Address | [address] | | | [place] [address] | + + + | Home Phone [...] Team Providers + +------+ + | Care Rehabilitation Services Manager Name | Role | Phone [...] [address] | | | | | [place], | [place], | | | | | [place] [address] | [place] [address] | | | | | [phone] | [phone] | | | | | | | [...] W | | | | | | [place], | | | | | | [place] [address] | | | | | | [phone] | | | | | | | | +--------+ + + + + | 11/20/ | Implant | Cardiology | Daljit Singletary, | Remote Device | | 2018 | Monitor | | [address] [facility] | Interrogation | | | | | [place], | (Primary Dx); | | | | | [place] [address] | Presence of | | | | | [phone] | permanent cardiac | | | | [...]
--- OUTSIDE RECORDS SUMMARY | ~2019-10-27 | XMS | Encounter Summary ---
Demographics + + + | Address | [address] | | | [place] [address] | + + + | Home Phone | | + + + | Preferred Language | Unknown | + + + | Marital Status | | + + + | Methodist Affiliation | 1013 | + + + | Race | Unknown | + + + | Ethnic Group | Unknown | + + + Author + + + | Author | [facility] | | | and [place] | + + + | Organization | [facility] | | | and [...] Team Providers + +------+ + | Care Pluck Separator Name | Role | Phone | + [...] 2019 | | GASTROENTEROLOGY | [address], [place] | Syndrome | | | | [address] [place] | [address] [place], [place] | | | | | [address] [place], [place] | [address] | | | | | [address] | | | | | | [phone] | | | +--------+ + + + [...] [place], | | | | | | [place] [address] | | | | | | [phone] | | | | | | | | +--------+ + + + + | 11/20/ | Implant | Cardiology | Daljit Singletary, | Remote Device | | 2018 | Monitor | | MD [place] | Interrogation | | | | | [place], | (Primary Dx); | | | | | [place] [address] | Presence of | | | | | [phone] | permanent cardiac | | | | [...]
--- OUTSIDE RECORDS SUMMARY | ~2019-10-27 | XMS | Encounter Summary ---
Demographics + + + | Address | [address] | | | [place] [address] | + + + | Home Phone | | + + + | Preferred Language | Unknown | + + + | Marital Status | | + + + | Taoism Affiliation | 1013 | + + + [...] Team Providers + +------+ + | Care County Engineer Name | Role | Phone | [...] + + | 05/14/ | Office | [facility] | [place], | Coronary artery | | 2013 | Visit | CARDIOLOGY [address] | PARISA [place] [address] | disease (Primary | | | | [place], | [place], | Dx); Hypertension; | | | | [place] [address] | [place] [address] | Hyperlipidemia; | | | | [phone] | [phone] | Syncope; Other chest | | | [...] needed for Chest pain. 25 tablet 12 [place]-3 Fatty Acids (SALMON OIL-1000 PO) CAPS, one capsule by mouth daily twice daily ONE TOUCH DELICA LANCETS [facility] Check glucose as needed [...] attenuation cannot completely be ruled out. D. [facility] 12/25/13, shows noncritical coronary artery disease, mild [...] exercising. He is in class II of [place] 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 There are no [...] ventricular arrhythmia performed by Dr. Gambino at [facility] on 01/30/2013. Patient had spontaneous PVCs from [...] to go back in 3 days to [place] for an attempt of ablation under general [...] palpitations.. He is in class II of [place] Heart 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 There are no [...] bring in his blood pressure logs from [facility] 5. Lightheadedness and dizziness/ presyncope: A. Episode [...] made to ensure accuracy; however, inadvertent computerized manager of disaster recovery errors may be pre sent. Electronically signed by: PARISA Russell 05/14/2014 7:40 documented in this encounter Plan of Treatment +--------+ + + + + | Date | Type | Specialty | Care Team | Description | +--------+ + + + + | 11/09/ | Office | Cardiology | [place], | | | 2018 | Visit | | PARISA [address] | | | | | | [place], | | | | | | [place] [address] | | | | | | [phone] | | | | | | | | +--------+ + + + + | 11/20/ | Implant | Cardiology | Daljit Singletary, | Remote Device | | 2018 | Monitor | | [address] [place] | Interrogation | | | | | [place], | (Primary Dx); | | | | | [place] [address] | Presence of | | | | | [phone] | permanent cardiac | | | | [...] of unspecified type of | | vessel, [place] or graft | + + | Hypertension Unspecified essential hypertension | + + | Hyperlipidemia Other and unspecified hyperlipidemia | + + | Syncope Syncope and collapse | + + | Other chest pain | + + | Chest pain Chest pain, unspecified | + + documented in this encounter
--- OUTSIDE RECORDS SUMMARY | ~2019-10-27 | XMS | Encounter Summary ---
Demographics + + + | Address | [address] | | | [place] [address] | + + + | Home Phone | | + + + | Preferred Language | Unknown | + + + | Marital Status | | + + + | Orthodoxy Affiliation | 1013 | + + + [...] Team Providers + +------+ + | Care Manager Spring Name | Role | Phone | + +------+ + | Kirk French MD | PCP | | + +------+ + Reason for Visit +--------+ + | Reason | Comments | +--------+ + | Other | ? referral | +--------+ + Encounter Details +--------+ + + + + | Date | Type | Department | Care Team | Description | +--------+ + + + + | 02/21/ | Telephone | [facility] | Emmanuel Dnaiel MD | Other (? referral) | | 2019 | | GASTROENTEROLOGY | [address] [place], [place] | | | | | [address] [place] | [address] [place], [place] | | | | | [address] [place], [place] | [address] | | | | | [address] | | | | | | [phone] | | | +--------+ + + + [...] | | | | | | [place] [address] | | | | | | [phone] | | | | | | | | +--------+ + + + + | 11/20/ | Implant | Cardiology | Daljit Singletary, | Remote Device | | 2019 | Monitor | | MD [place] | Interrogation | | | | | [place], | (Primary Dx); | | | | | [place] [address] | Presence of | | | | | [phone] | permanent cardiac | | | | [...]
--- OUTSIDE RECORDS SUMMARY | ~2019-10-27 | XMS | Encounter Summary ---
Demographics + + + | Address | [address] | | | [place] [address] | + + + | Home Phone [...] Team Providers + +------+ + | Care Copyright Expert Name | Role | Phone | + [...] | +--------+ + + + + | 05/05/ | Telephone | [facility] [place] | [place], | Appointment | | 2017 | | CARDIOLOGY [address] | Janeen CERTIFIED PUBLIC ACCOUNTANT [address] | | | | | [place], | [place], | | | | | [place] [address] | [place] [address] | | | | | [phone] | [phone] | | | | | | | [...] W | | | | | | [place], | | | | | | [place] [address] | | | | | | [phone] | | | | | | | | +--------+ + + + + | 11/20/ | Implant | Cardiology | Daljit Singletary, | Remote Device | | 2018 | Monitor | | MD [place] | Interrogation | | | | | [place], | (Primary Dx); | | | | | [place] [address] | Presence of | | | | | [phone] | permanent cardiac | | | | [...]
--- OUTSIDE RECORDS SUMMARY | ~2019-10-27 | XMS | Encounter Summary ---
Demographics + + + | Address | [address] | | | [place] [address] | + + + | Home Phone [...] Team Providers + +------+ + | Care Trade Facilitator Name | Role | Phone | + +------+ + | Kirk French MD | PCP | | + +------+ + Encounter Details +--------+ + + + + | Date | Type | Department | Care Team | Description | +--------+ + + + + | 01/07/ | Hospital | [facility] | Conversion | | | 2017 | Encounter | [facility] | Transaction, | | | | | ULTRASOUND [address] | Provider Unknown | | | | | [address] [facility] [address] | [phone] | | | | | [place] | | | | | | [address] | Kirk French | | | | | [phone] | MD Eva Guidry | | | | | | [address] [place], | | | | | | [place] [address] | | | | | | [phone] | | | | | | | [...] + + + +---------+ + + | [place]-3 Fatty | CAPS, one capsule by | [...] | | | | | | [place] [address] | | | | | | [phone] | | | | | | | | +--------+ + + + + | 11/20/ | Implant | Cardiology | Daljit Singletary, | Remote Device | | 2018 | Monitor | | [address] [facility] | Interrogation | | | | | [place], | (Primary Dx); | | | | | [place] [address] | Presence of | | | | | [phone] | permanent cardiac | | | | [...]
--- OUTSIDE RECORDS SUMMARY | ~2019-10-27 | XMS | Encounter Summary ---
Demographics + + + | Address | [address] | | | [place] [address] | + + + | Home Phone [...] Team Providers + +------+ + | Care Sr. Pricing Analyst Name | Role | Phone | + +------+ + | Kirk French MD | PCP | | + +------+ + Encounter Details +--------+ + + + + | Date | Type | Department | Care Team | Description | +--------+ + + + + | 01/25/ | Hospital | [facility] | Daljit Singletary, | Stable angina | | 2019 | Encounter | MED CTR CV INTRA OP | MD [address] | pectoris (HCC) | | | | [address] | [address] [place], | | | | | [place] | [place] [address] | | | | | [address] | [phone] | | | | | [phone] | | | +--------+ + + + [...] + | Blood Pressure | 118/80 | 01/25/2019 1:00 PM | | | | | PST | | + + + + + | Pulse | 70 | 01/25/2019 1:00 PM | | | | | PST | | + + + + + | Temperature | 36.7 C (98 F) | 01/25/2019 8:51 AM | | | | | PST | | + + + + + | Respiratory Rate | 20 | 01/25/2019 1:15 PM | | | | | PST | | + + + + + | Oxygen Saturation | 97% | 01/25/2019 1:00 PM | | | | | PST [...] as a collagen plugis used on the [place] triny site to close the site, you [...] by your healthcare provider Date Last Reviewed: 09/22/201619998342-6307 [employer]. [address] [place] [address]. All righ ts reserved. This information is [...] mg by mouth | | 0 | /1820 | | | tablet | Daily. | [...] + + + +---------+ + + | [place]-3 Fatty | CAPS, one capsule by | [...] W | | | | | | [place], | | | | | | [place] [address] | | | | | | [phone] | | | | | | | | +--------+ + + + + | 11/20/ | Implant | Cardiology | Daljit Singletary, | Remote Device | | 2018 | Monitor | | [facility] | Interrogation | | | | | [place], | (Primary Dx); | | | | | [place] [address] | Presence of | | | | | [phone] | permanent cardiac | | | | [...] (1960) MEDICAL RECORD NUMBER: | | | [id number] OF PROCEDURE: 01/25/2019 TRIAL JUDGE: Daljit | | | MD [employer]ini PROCEDURES [...] performed in several sagittal and oblique projections. Wandy | | | pigtail diagnostic catheters were [...] Sanchez, (1960) | | OF PROCEDURE: 01/25/2019PRIMARY GLYCERINE PLANT OPERATOR: Daljit Singletary MD PROCEDURES | | PERFORMED:Coronary [...] | Aggressive medical management. | | at 9:33[facility] CARE PROVIDER:Kirk French MDFor additional detail as [...] Stable angina pectoris (HCC) | + + documented in this encounter Administered Medications + +---------+ +--------+-------+ + | Medication Order | MAR | Action | Dose | Rate | Site | | | Action | Date | | | | + +---------+ +--------+-------+ + | sodium chloride [...]
--- OUTSIDE RECORDS SUMMARY | ~2019-10-27 | XMS | Encounter Summary ---
Demographics + + + | Address | [address] | | | [place] [address] | + + + | Home Phone [...] Team Providers + +------+ + | Care Wall Mirror Department Supervisor Name | Role | Phone | [...] Closed | | Radiology | Diagnoses | [place], | [facility] | | | | | Other chest | PARISA Nevarez | Medicine | | | | | pain | [address] | [address] | | | | | Procedures | [place] | [place], | | | | | [place] Nuclear | [place] | [place] | | | | | Stress Test | [address] | [address] | | | | | (Vasodilator | Phone: | Phone: | | | | | ) CHG | [phone] | [phone] | | | | | MYOCARDIAL | Fax: | Fax: | | | | | SPECT | [phone] | [phone] | | | | | MULTIPLE | | | | | | | STUDIES | | | +--------+--------+ + + + + Encounter Details +--------+ + + + + | Date | Type | Department | Care Team | Description | +--------+ + + + + | 12/06/ | Hospital | [facility] | Geri Angel, | Other chest pain | | 2013 | Encounter | MED CTR XRAY [address] | TANDEM OPERATOR [address] | | | | | [place] | [place] | | | | | [place] [address] | [address] | | | | | [phone] | | | +--------+ + + + [...] + + + +---------+ + + | [place]-3 Fatty | CAPS, one capsule by | [...] W | | | | | | [place], | | | | | | [place] [address] | | | | | | [phone] | | | | | | | | +--------+ + + + + | 11/20/ | Implant | Cardiology | Daljit Singletary, | Remote Device | | 2018 | Monitor | | [address] | Interrogation | | | | | [place], | (Primary Dx); | | | | | [place] [address] | Presence of | | | | | [phone] | permanent cardiac | | | | [...] | [place] NUCLEAR STRESS | Routin | 12/07/2013 | Other chest pain | Results for this | | TEST (PHARMACOLOGIC | e | 7:01 AM | | procedure are in the | | - VASODILATOR) | | PST | | results section. | + +--------+ + + + documented in this encounter Results [place] Nuclear Stress Test (Vasodilator) (12/07/2013 7:01 AM PST) + + | Specimen | + + | | + + + + + | Narrative | Performed At | + + + | [facility] | [place] | | Department [address] [facility] | [facility] | | [ rep [address]] [ rep [facility] | | st zip] Signed | - IMAGING | | | | | Patient Name: MOE GAY | | | Physician: JACKLYN : 1960 Age: 53 Sex: M Unit | | | #: [id number] Exam Date: 12/06/13 Location: | | | [facility] Report #: [id number] Page: | | | %(RAD)RES..mtdd.print.filter("pg") of %(RAD) | | | RES..mtdd.print.filter("tpg") | | | | | | Accession Number: [id number] | | | PERSANTINE SESTAMIBI STRESS TEST, 12/06/2013 In a supine | | | position, 60 mg of Persantine was transfused intravenously over 4 | | | minutes. Blood pressure and EKG were monitored every 1 minute. | | | Two minutes into the Persantine infusion, 10.9 mCi of Sestamibi | | | was given intravenously. The patient was taken to the Nuclear | | | Medicine department. SPECT myocardial perfusion imaging was | | | acquired with wall motion analysis. Rest imaging was performed using | | | 31.9 mCi Sestamibi in addition. Repeated SPECT myocardial | | | perfusion imaging was acquired with wall motion analysis. | | | HEMODYNAMICS: Heart rate baseline 74 beats per minute, peak 94 | | | beats per minute. Blood pressure baseline 145/99 mmHg, peak 133/92 | | | mmHg. The EKG baseline is normal sinus, a normal EKG. | | | SIDE EFFECTS: None. The patient received 75 mg of aminophylline | | | intravenously toward the end of the procedure. | | | ARRYTHMIA: None. PERSANTINE SESTAMIBI MYOCARDIAL | | | PERFUSION IMAGING RESULTS Persantine sestamibi | | | tomographic images reviewed without the attenuation compensation | | | resolution revealed a small size, reversible defect of a mild | | | stability in the proximal inferior, mid inferior, and distal | | | inferior wall. Abnormality can be seen in short axis, vertical long | | | axis, and horizontal long axis projections comprising approximately | | | 5% of the left ventricular myocardium. The left ventricular cavity | | | is normal. The rest imaging is normal. The gated | | | SPECT revealed a normal left ventricular wall thickness and motion. | | | LVEF is 66%. IMPRESSION: 1. PERSANTINE EKG IS | | | NEGATIVE. 2. A ABNORMAL PERSANTINE SESTAMIBI MYOCARDIAL | | | PERFUSION IMAGING STUDY WITH A SMALL SIZE, REVERSIBLE DEFECT OR A | | | MILD STABILITY IN THE PROXIMAL INFERIOR, MID INFERIOR AND DISTAL | | | INFERIOR WALL. THIS SUGGESTS THE POSSIBILITY OF A MYOCARDIAL | | | ISCHEMIA OF THE RIGHT CORONARY ARTERY TERRITORY. A NORMAL LEFT | | | VENTRICULAR SIZE, WALL THICKNESS AND MOTION. PRESERVED LEFT | | | VENTRICULAR SYSTOLIC FUNCTION. LVEF IS 66% BY GATED SPECT. | | | 3. OF NOTE, DIAGRAMMATIC INFERIOR WALL SOFT TISSUE ATTENUATION | | | CANNOT COMPLETELY BE RULED OUT. Dictated Date/Time: | | | 12/07/2013 07:01 Transcribed Date/Time: 12/07/2013 08:18 | | | Mobile Home Technician: <<Signature on File>> | | | | | | Daljit Singletary MD [facility]12/07/13 1321 <Electronically signed | | | by Daljit Singletary MD, FACC, FACP, FASE, FASNC> Daljit | | | MD CLEOPATRA Singletary 12/07/13 0701 Mobile Home Technician: Jessica | | | [id number]/16/14 0818 PARISA Garcia | | + + + + + + + + | Performing | Address | City[facility] | Phone Number | | Organization | | | | + + + + + | [address] | [address] | [place] | [phone] | | [facility] | | [address] | | | - IMAGING | | | | + + + + + documented in this encounter Visit Diagnoses + + | Diagnosis | + + | Other chest pain | + + documented in this encounter
--- OUTSIDE RECORDS SUMMARY | ~2019-10-27 | XMS | Encounter Summary ---
Demographics + + + | Address | [address] | | | [place] [address] | + + + | Home Phone [...] Team Providers + +------+ + | Care Color Mixer Name | Role | Phone | + [...] + + | 08/31/ | Refill | [facility] | Kirk French | Medication Refill | | 2018 | | [facility] | MD Brea [address] | | | | | [facility] | | | | | [address] | [place] [address] | | | | | [place], [place] | [phone] | | | | | [address] | | | | | | [phone] | | | +--------+--------+ + + + [...] | | | | | | [place] [address] | | | | | | [phone] | | | | | | | | +--------+ + + + + | 11/20/ | Implant | Cardiology | Daljit Singletary, | Remote Device | | 2018 | Monitor | | MD [address] | Interrogation | | | | | [facility] [place], | (Primary Dx); | | | | | [place] [address] | Presence of | | | | | [phone] | permanent cardiac | | | | [...]
--- OUTSIDE RECORDS SUMMARY | ~2019-10-27 | XMS | Encounter Summary ---
Demographics + + + | Address | [address] | | | [place] [address] | + + + | Home Phone [...] Team Providers + +------+ + | Care Thread Grinder Name | Role | Phone | + +------+ + | Michael Amanda DO | PCP | | + +------+ + Encounter Details +--------+ + + + + | Date | Type | Department | Care Team | Description | +--------+ + + + + | 02/22/ | Abstract | [facility] | Silvia, | | | 2013 | | CARDIOLOGY [address] | PARISA [place] [address] | | | | | [place], | [place], | | | | | [place] [address] | [place] [address] | | | | | [phone] | [phone] | | | | | | | [...] | | | | | | [place] [address] | | | | | | [phone] | | | | | | | | +--------+ + + + + | 11/20/ | Implant | Cardiology | Daljit Singletary, | Remote Device | | 2019 | Monitor | | MD [address] [facility] | Interrogation | | | | | [place], | (Primary Dx); | | | | | [place] [address] | Presence of | | | | | [phone] | permanent cardiac | | | | [...] | + +--------+ + + + | RULE OUT MYOCARDIAL | Routin | 01/25/2014 | | Results for this | | INFARCTION | e | 2:10 PM | | procedure are in the | | | | PST | | results section. | + +--------+ + + + | EXTERNAL LAB: CBC | Routin | 01/25/2014 | | Results for this | | | e | 11:43 AM | | procedure are in the | | | | PST | | results section. | + +--------+ + + + | EXTERNAL LAB: | Routin | 01/25/2014 | | Results for this | | PROTIME INR | e | 11:43 AM | | procedure are in the | | | | PST | | results section. | + +--------+ + + + | EXTERNAL LAB: AST | Routin | 01/25/2014 | | Results for this | | | e | 11:43 AM | | procedure are in the | | | | PST | | results section. | + +--------+ + + + | EXTERNAL LAB: ALT | Routin | 01/25/2014 | | Results for this | | | e | 11:43 AM | | procedure are in the | | | | PST | | results section. | + +--------+ + + + | EXTERNAL LAB: EGFR | Routin | 01/25/2014 | | Results for this | | | e | 11:43 AM | | procedure are in the | | | | PST | | results section. | + +--------+ + + + | EXTERNAL LAB: | Routin | 01/25/2014 | | Results for this | | CREATININE | e | 11:43 AM | | procedure are in the | | | | PST | | results section. | + +--------+ + + + | PROTHROMBIN TIME | Routin | 01/25/2014 | | Results for this | | (NON-ORD) | e | | | procedure are in the | | | | | | results section. | + +--------+ + + + | CBC WITH | Routin | 01/25/2014 | | Results for this | | DIFFERENTIAL | e | | | procedure are in the | | | | | | results section. | + +--------+ + + + | COMPREHENSIVE | Routin | 01/25/2014 | | Results for this | | METABOLIC PANEL | e | | | procedure are in the | | | | | | results section. | + +--------+ + + + documented in this encounter Results Rule Out Myocardial (01/25/2014 2:10 PM PST) + + + + + + | Component | Value | Ref Range | Performed | Pathologist | | | | | At | Signature | + + + + + + | Troponin I | 0.01 | ng/mL | [facility] | | | | | | [facility] | | | | | | [facility] | | | | | | [facility] - | | | | | | LABORATORY | | + + + + + + | Myoglobin | 80.50 | 17.4 - 105.7 | [facility] | | | | | ng/mL | [facility] | | | | | | MEDICAL | | | | | | CENTER - | | | | | | LABORATORY | | + + + + + + | CK, Total, | 787 (A) | 24 - 195 | [facility] | | | External | | | [facility] | | | | | | MEDICAL | | | | | | CENTER - | | | | | | LABORATORY | | + + + + + + | CK-MB | 13.7 (A) | 0.0 - 4.9 ng/mL | [facility] | | | | | | [facility] | | | | | | MEDICAL | | | | | | CENTER - | | | | | | LABORATORY | | + + + + + + | CK Index | 1.7 | | [facility] | | | | | | [facility] | | | | | | MEDICAL | | | | | | CENTER - | | | | | | LABORATORY | | + + + + + + | CKMB, | TRACE | | [facility] | | | Total, | | | [facility] | | | External | | | MEDICAL | | | [...] | [address] | [place] | | | [facility] | | [address] | | | - LABORATORY | | | | + + + + + External Lab: CBC (01/25/2014 11:43 AM PST) + +---------+ + + + | Component | Value | Ref Range | Performed | Pathologist | | | | | At | Signature | + +---------+ + + + | WBC, | 9.5 | 4.5 - 11 | EXTERNAL | | | External | | | LAB | | + +---------+ + + + | HGB, | 16.1 | 13.5 - 18 | EXTERNAL | | | External | | | LAB | | + +---------+ + + + | HCT, | 47.5 | 41 - 50 | EXTERNAL | | | External | | | LAB | | + +---------+ + + + | PLT, | 135 (A) | 140 - 440 | EXTERNAL | | | External | | | LAB | | + +---------+ + + + + + | Resulting Agency Comment | + + | [facility] | + + + +---------+ + + | Performing | Address | City/State/Zipcode | Phone Number | | Organization | | | | + +---------+ + + | EXTERNAL LAB | | | | + +---------+ + + External Lab: Marcelina INR (01/25/2014 11:43 AM PST) + +-------+ + + + | Component | Value | Ref Range | Performed | Pathologist | | | | | At | Signature | + +-------+ + + + | INR, | 1.0 | 0.8 - 1.3 | EXTERNAL | | | External | | | LAB | | + +-------+ + + + + + | Specimen | + + | Blood specimen | | (specimen) | + + + + | Resulting Agency Comment | + + | [facility] | + + + +---------+ + + | Performing | Address | City/State/Zipcode | Phone Number | | Organization | | | | + +---------+ + + | EXTERNAL LAB | | | | + +---------+ + + External Lab: AST (01/25/2014 11:43 AM PST) + +-------+ + + + | Component | Value | Ref Range | Performed | Pathologist | | | | | At | Signature | + +-------+ + + + | AST, | 35 | 13 - 39 | EXTERNAL | | | External | | | LAB | | + +-------+ + + + + + | Specimen | + + | Blood specimen | | (specimen) | + + + + | Resulting Agency Comment | + + | [facility] | + + + +---------+ + + | Performing | Address | City/State/Zipcode | Phone Number | | Organization | | | | + +---------+ + + | EXTERNAL LAB | | | | + +---------+ + + External Lab: ALT (01/25/2014 11:43 AM PST) + +-------+ + + + [...] Agency Comment | + + | [facility] | + + + +---------+ + + | Performing | Address | City/State/Zipcode | Phone Number | | Organization | | | | + +---------+ + + | EXTERNAL LAB | | | | + +---------+ + + External Lab: eGFR (01/25/2014 11:43 AM PST) + +-------+ + + + [...] | | | LAB | | | [place], | | | | | | External | | | | | + +-------+ + + + + + | Specimen | + + | Blood specimen | | (specimen) | + + + + | Resulting Agency Comment | + + | [facility] | + + + +---------+ + + | Performing | Address | City/State/Zipcode | Phone Number | | Organization | | | | + +---------+ + + | EXTERNAL LAB | | | | + +---------+ + + External Lab: Creatinine (01/25/2014 11:43 AM PST) + +-------+ + + + | Component | Value | Ref Range | Performed | Pathologist | | | | | At | Signature | + +-------+ + + + | Creatinine, | 0.77 | 0.5 - 1.5 | EXTERNAL | | | External | | | LAB | | + +-------+ + + + + + | Specimen | + + | Blood specimen | | (specimen) | + + + + | Resulting Agency Comment | + + | [facility] | + + + +---------+ + + | Performing | Address | City/State/Zipcode | Phone Number | | Organization | | | | + +---------+ + + | EXTERNAL LAB | | | | + +---------+ + + Comprehensive Metabolic Panel (01/25/2014) + +---------+ + + + | Component | Value | Ref Range | Performed | Pathologist | | | | | At | Signature | + +---------+ + + + | Na | 137 | mmol/L | [facility] | | | | | | [facility] | | | | | | MEDICAL | | | | | | CENTER - | | | | | | LABORATORY | | + +---------+ + + + | K | 3.5 (A) | 3.6 - 5.1 | [facility] | | | | | mmol/L | [facility] | | | | | | MEDICAL | | | | | | CENTER - | | | | | | LABORATORY | | + +---------+ + + + | Cl | 105 | mmol/L | [facility] | | | | | | [facility] | | | | | | MEDICAL | | | | | | CENTER - | | | | | | LABORATORY | | + +---------+ + + + | CO2 | 28 | mmol/L | [facility] | | | | | | [facility] | | | | | | MEDICAL | | | | | | CENTER - | | | | | | LABORATORY | | + +---------+ + + + | Anion Gap | 8 | mmol/L | [facility] | | | | | | [facility] | | | | | | MEDICAL | | | | | | CENTER - | | | | | | LABORATORY | | + +---------+ + + + | Glucose | 95 | mg/dL | [facility] | | | | | | [facility] | | | | | | MEDICAL | | | | | | CENTER - | | | | | | LABORATORY | | + +---------+ + + + | BUN | 17 | mg/dL | [facility] | | | | | | [facility] | | | | | | MEDICAL | | | | | | CENTER - | | | | | | LABORATORY | | + +---------+ + + + | BUN/Creatin | 22.1 | | [facility] | | | ine Ratio | | | [facility] | | | | | | MEDICAL | | | | | | CENTER - | | | | | | LABORATORY | | + +---------+ + + + | Calcium | 8.7 | mg/dL | [facility] | | | | | | [facility] | | | | | | MEDICAL | | | | | | CENTER - | | | | | | LABORATORY | | + +---------+ + + + | Alkaline | 52 | U/L | [facility] | | | Phosphatase | | | [facility] | | | | | | MEDICAL | | | | | | CENTER - | | | | | | LABORATORY | | + +---------+ + + + | Bilirubin | 1.4 (A) | 0.0 - 1.2 mg/dL | [facility] | | | Total | | | [facility] | | | | | | MEDICAL | | | | | | CENTER - | | | | | | LABORATORY | | + +---------+ + + + | Total | 6.4 | g/dL | [facility] | | | Protein | | | [facility] | | | | | | MEDICAL | | | | | | CENTER - | | | | | | LABORATORY | | + +---------+ + + + | Albumin | 4.1 | g/dL | [facility] | | | | | | [facility] | | | | | | MEDICAL | | | | | | CENTER - | | | | | | LABORATORY | | + +---------+ + + + | Globulin | 2.3 | | [facility] | | | | | | [facility] | | | | | | MEDICAL | | | | | | CENTER - | | | | | | LABORATORY | | + +---------+ + + + | Albumin/Sandee | 1.8 | | [facility] | | | bulin Ratio | | | [facility] | | | | [...] + | [facility] | [address] | [place] | | | [facility] | | [address] | | | - LABORATORY | | | | + + + + + CBC with Differential (01/25/2014) + + + + + + | Component | Value | Ref Range | Performed | Pathologist | | | | | At | Signature | + + + + + + | RBC | 5.04 | 10*6/uL | | | + + + + + + | MCV | 94.3 | fL | | | + + + + + + | RDW-CV | 12.7 | % | | | + + + + + + | MCH | 32.0 | pg | | | + + + + + + | MCHC | 34.0 | % | | | + + + + + + | % Segmented | 68.4 | % | | | | | | | | | | Neutrophils | | | | | + + + + + + | % | 23.4 (A) | 24.0 - 44.0 % | | | | Lymphocytes | | | | | + + + + + + | % Monocytes | 7.5 | % | | | + + + + + + | % | 0.7 | % | | | | Eosinophils | | | | | + + + + + + | % Basophils | 0.0 | % | | | + + + + + + + + | Specimen | + + | Blood specimen | | (specimen) | + + Prothrombin Time (01/25/2014) + +-------+ + + + | Component | Value | Ref Range | Performed | Pathologist | | | | | At | Signature | + +-------+ + + + | Prothrombin | 12.7 | seconds | | | | Time | | | | | + +-------+ + + + + + | Specimen | + + | Blood specimen | | (specimen) | + + documented in this encounter Visit Diagnoses Not on filedocumented in this encounter"
--- OUTSIDE RECORDS SUMMARY | ~2019-10-27 | XMS | Encounter Summary ---
Demographics + + + | Address | [address] | | | [place] [address] | + + + | Home Phone | | + + + | Preferred Language | Unknown | + + + | Marital Status | | + + + | Sabianism Affiliation | 1013 | + + + | Race | Unknown | + + + | Ethnic Group | Unknown | + + + Author + + + | Author | [facility] | | | and [place] | + + + | Organization | [facility] | | [...] Team Providers + +------+ + | Care Scouring Train Operator Chief Name | Role | Phone | + [...] | RN | | | | | [place], | | | | | | [place] [address] | | | | | | [phone] | | | +--------+ + + + [...] W | | | | | | [place], | | | | | | [place] [address] | | | | | | [phone] | | | | | | | | +--------+ + + + + | 11/20/ | Implant | Cardiology | Daljit Singletary, | Remote Device | | 2019 | Monitor | | [address] | Interrogation | | | | | [place], | (Primary Dx); | | | | | [place] [address] | Presence of | | | | | [phone] | permanent cardiac | | | | [...]
--- OUTSIDE RECORDS SUMMARY | ~2019-10-27 | XMS | Encounter Summary ---
Demographics + + + | Address | [address] | | | [place] [address] | + + + | Home Phone [...] Team Providers + +------+ + | Care Solution Coordinator Name | Role | Phone | [...] + + | 02/01/ | Telephone | [facility] | Silvia, | Other (unable to | | 2013 | | CARDIOLOGY [address] | PARISA [place] [address] | take the isosorbide) | | | | [place], | [place], | | | | | [place] [address] | [place] [address] | | | | | [phone] | [phone] | | | | | | | [...] W | | | | | | [place], | | | | | | [place] [address] | | | | | | [phone] | | | | | | | | +--------+ + + + + | 11/20/ | Implant | Cardiology | Daljit Singletary, | Remote Device | | 2018 | Monitor | | [address] [place] | Interrogation | | | | | [place], | (Primary Dx); | | | | | [place] [address] | Presence of | | | | | [phone] | permanent cardiac | | | | [...] of unspecified type of | | vessel, tetlin or graft | + + | Hypertension Unspecified essential hypertension | + + | Hyperlipidemia Other and unspecified hyperlipidemia | + + documented in this encounter"
--- OUTSIDE RECORDS SUMMARY | ~2019-10-27 | XMS | Encounter Summary ---
Demographics + + + | Address | [address] | | | [place] [address] | + + + | Home Phone [...] Team Providers + +------+ + | Care Share Dairy Farmer Name | Role | Phone | + [...] + + | Closed | Specialty | Gastroenterol | Diagnoses | María | [facility] | | | Services | ogy | | Emmanuel Fitzpatrick MD | GASTROENTEROL | | | Required | | Incontinence | [address] | [address] | | | | | of feces, | [place], [place] | [address] | | | | | unspecified | [address] [place] | [place], [place] | | | | | fecal | [place], [place] | [address] | | | | | incontinence | [address] | Phone: | | | | | type | Phone: | [phone] | | | | | Diarrhea, | [phone] | Fax: | | | | | unspecified | Fax: | [phone] | | | | | type | [phone] | | +--------+ + + + + + Reason for Visit +--------+ + | Reason | Comments | +--------+ + | Other | | +--------+ + Encounter Details +--------+ + + + + | Date | Type | Department | Care Team | Description | +--------+ + + + + | 03/21/ | Telephone | [facility] | Emmanuel Daniel MD | Other | | 2018 | | GASTROENTEROLOGY | [address], [place] | | | | | [address] | [address] [place], [place] | | | | | [address] [place], [place] | [address] | | | | | [address] | | | | | | [phone] | | | +--------+ + + + [...] | 11/09/ | Office | Cardiology | Silvia | | | 2018 | Visit | | PARISA [place] [address] | | | | | | [place], | | | | | | [place] [address] | | | | | | [phone] | | | | | | | | +--------+ + + + + | 11/20/ | Implant | Cardiology | Daljit Singletary, | Remote Device | | 2018 | Monitor | | [address] | Interrogation | | | | | [place], | (Primary Dx); | | | | | [place] [address] | Presence of | | | | | [phone] | permanent cardiac | | | | [...] Ambulatory referral | Outpatient | Routin | Incontinence of | Expected: 04/05/2019 | | to Gastroenterology | Referral | e | feces, unspecified | (Approximate), | | (renayi) | | | fecal incontinence | Expires: 03/21/2020 | | | | | type Diarrhea, | | | | | | unspecified type | | + + +--------+ + + documented as of this encounter Visit Diagnoses + + | Diagnosis | + + | Incontinence of feces, unspecified fecal incontinence type - Primary | + + | Diarrhea, unspecified type | + + documented in this encounter"
--- OUTSIDE RECORDS SUMMARY | ~2019-10-27 | XMS | Encounter Summary ---
Demographics + + + | Address | [address] | | | [place] [address] | + + + | Home Phone [...] Team Providers + +------+ + | Care Aix Administrator Name | Role | Phone | + +------+ + PCP | Unavailable | + +------+ + Encounter Details +--------+ + + + + | Date | Type | Department | Care Team | Description | +--------+ + + + + | 06/17/ | Hospital | [facility] | | | | 2008 | Encounter | [facility] | | | | | | [place] [address] | | | | | | [place] | | | | | | [address] | | | | | | [phone] | | | +--------+ + + + [...] | | | | | | [place] [address] | | | | | | [phone] | | | | | | | | +--------+ + + + + | 11/20/ | Implant | Cardiology | Daljit Singletary, | Remote Device | | 2018 | Monitor | | [address] [facility] | Interrogation | | | | | [place], | (Primary Dx); | | | | | [place] [address] | Presence of | | | | | [phone] | permanent cardiac | | | | [...]
--- OUTSIDE RECORDS SUMMARY | ~2019-10-27 | XMS | Encounter Summary ---
Demographics + + + | Address | [address] | | | [place] [address] | + + + | Home Phone [...] Team Providers + +------+ + | [facility] Senior Analyst Name | Role | Phone | + +------+ + | Kirk French MD | PCP | | + +------+ + Reason for Visit + + + | Reason | Comments | + + + | Abdominal Pain | | + + + Encounter Details +--------+ + + + + | Date | Type | Department | Care Team | Description | +--------+ + + + + | 05/09/ | Emergency | [facility] | Functional diarrhea | | 2019 | | [facility] | DO [facility] [address] | (Primary Dx) | | | | CENTER [address] | [address] [place] | | | | | [place], [place] | [place] [address] | | | | | [address] | [phone] | | | | | [phone] | | | +--------+ + + + [...] + + + | Blood Pressure | 139/105 | 05/09/2019 2:41 PM | | | | | PDT | | + + + + + | Pulse | 80 | 05/09/2019 2:41 PM | | | | | PDT | | + + + + + | Temperature | 36.1 C (97 F) | 05/09/2019 2:41 PM | | | | | PDT | | + + + + + | Respiratory Rate | 18 | 05/09/2019 2:41 PM | | | | | PDT | | + + + + + | Oxygen Saturation | 97% | 05/09/2019 2:41 PM | | | | | PDT | | + + + + + | Inhaled Oxygen | - | - | | | Concentration | | | | + + + + + | Weight | 99.8 kg (220 lb) | 05/09/2019 2:41 PM | | | | | PDT | | + + + + + | Height | - | - | | + + + + + | Body Mass Index | 26.78 | 04/07/2019 9:26 AM | | | [...] following attachments cannot be sent through [facility] Everywhere.Diarrhea, Unkno wn Cause (Sami)documented in this encounter Medications at Time of [...] + + + +---------+ + + | Conway-3 Fatty | CAPS, one capsule by | [...] | | | | | | | [place] coronary | | | | | | | artery of [place] | | | | | | | [...] + + + +---------+ + + | eluxadoline | Take 1 tablet by | 30 | 0 | 05/09/20 | | | (VIBERZI) 100 mg | mouth 2 times daily | tablet | | 19 | 9 | | tablet | (with breakfast & | | | | | | | dinner). | | | | | + + + +---------+ + + | hyoscyamine | Place 1 tablet under | 60 | 0 | 05/09/20 | | | (LEVSIN) 0.125 mg SL | the tongue every 4 | tablet | | 19 | 9 | | tablet | hours as needed for | | | | | | | Cramping, Diarrhea | | | | | | | or GI Spasms. | | | | | + + [...] [address] | | | | | [address] [place], | | | | | | [place] [address] | | | | | | [phone] | | | | | | | | +--------+ + + + + | 11/20/ | Implant | Cardiology | Daljit Singletary, | Remote Device | | 2018 | Monitor | | [address] | Interrogation | | | | | [place], | (Primary Dx); | | | | | [place] [address] | Presence of | | | | | [phone] | permanent cardiac | | | | [...] INFORMATION | BRUNILDA | Routin | | 05/09/2019 2:17 PM | | EXCHANGE | | e | | PDT | + +------+--------+ + + documented as of this encounter Procedures + +--------+ + + + | Procedure Name | Priori | Date/Time | Associated Diagnosis | Comments | | | ty | | | | + +--------+ + + + | CT ABDOMEN PELVIS W | STAT | 05/09/2019 | | Results for this | | CONTRAST | | 4:50 PM | | procedure are in the | | | | PDT | | results section. | + +--------+ + + + | EXTRA LAVENDER TOP | STAT | 05/09/2019 | | Results for this | | TUBE | | 4:43 PM | | procedure are in the | | | | PDT | | results section. | + +--------+ + + + | EXTRA GREEN TOP TUBE | STAT | 05/09/2019 | | Results for this | | | | 4:43 PM | | procedure are in the | | | | PDT | | results section. | + +--------+ + + + | SEDIMENTATION RATE | STAT | 05/09/2019 | | Results for this | | | | 4:42 PM | | procedure are in the | | | | PDT | | results section. | + +--------+ + + + | CBC WITH | STAT | 05/09/2019 | | Results for this | | DIFFERENTIAL | | 4:42 PM | | procedure are in the | | | | PDT | | results section. | + +--------+ + + + | C-REACTIVE PROTEIN, | STAT | 05/09/2019 | | Results for this | | HIGH SENSITIVITY | | 4:42 PM | | procedure are in the | | | | PDT | | results section. | + +--------+ + + + | LIPASE | STAT | 05/09/2019 | | Results for this | | | | 4:42 PM | | procedure are in the | | | | PDT | | results section. | + +--------+ + + + | COMPREHENSIVE | STAT | 05/09/2019 | | Results for this | | METABOLIC PANEL | | 4:42 PM | | procedure are in the | | | | PDT | | results section. | + +--------+ + + + | URINALYSIS WITH | Routin | 05/09/2019 | | Results for this | | MICROSCOPIC WITH | e | 2:52 PM | | procedure are in the | | CULTURE IF INDICATED | | PDT | | results section. | + +--------+ + + + | ED INFORMATION | Routin | 05/09/2019 | | | | EXCHANGE | e | 2:17 PM | | | | | | PDT | | | + +--------+ + + + +---+--------+ | | | | | Proced | | | ure | | | Note - | | | Eneida, | | | Lab In | | | | | | Hlseve | | | n - | | | 05/09/ | | | 2018 | | | 2:18 | | | PM PDT | | | | | | Format | | | ting | | | of | | | this | | | note | | | might | | | be | | | differ | | | ent | | | from | | | the | | | origin | | | al.COL | | | LECTIV | | | E?NOTI | | | FICATI | | | ON?/ | | | | | | 9 | | | 14:16? | | | HODGEN | | | , | | | FREDER | | | ICK | | | W?MRN: | | | | | | [id number] | | | [id number] | | | riteri | | | a Met | | | Care | | | Guidel | | | queenie | | | PRC 4 | | | | | | visits | | | in 60 | | | 3 | | | Facili | | | ties | | | in | | | 60Secu | | | rity | | | and | | | Safety | | | No | | | [...] | | | queenie | | | for | | | this | | | patien | | | t. | | | Please | | | check | | | your | | | facili | | | ty's | | | medica | | | l | | | record | | | s | | | system | | | .Care | | | Histor | | | yMedic | | | al/Janet | | | [id number] | | | /29/19 | | | 12:00 | | | AM | | | [facility] [place] | | | y | | | [facility] | | | al | | | PATIEN | | | T | | | UROLOG | | | IST IS | | | DR | | | SPENDL | | | OVE- | | | [place] | | | [place] | | | [place] - | | | CONTAC | | | T# | | | ([phone]) | | | [phone] | | | 2660.P | | | rescri | | | ption | | | Drug | | | Report | | | (12 | | | Mo.)PD | | | MP | | | query | | | found | | | no | | | report | | | .E.D. | | | Visit | | | Count | | | (12 | | | mo.)Fa | | | cility | | | | | | Visits | | | Low | | | Acuity | | | Good | | | [facility] | | | rd | | | Health | | | 5 0 | | | Provid | | | ence | | | St. | | | [facility] | | | Medica | | | l | | | Center | | | 5 0 | | | [facility] [place] | | | y | | | Hospit | | | al 2 0 | | | Total | | [...] Recent | | | | | | Emerge | | | ncy | | | Depart | | | ment | | | Visit | | | Summar | | | yShowi | | | ng 10 | | | most | | | recent | | | | | | visits | | | out | | | of 12 | | | in the | | | past | | | 12 | | | months | | | Date | | | Facili | | | ty | | | City | | | State | | | Type | | | Diagno | | | ses or | | | Chief | | | | | | Compla | | | int | | | Davi | | | 18, | | | 2019 | | | Provid | | | ence | | | St. | | | [facility] | | | [place] | | | [place] | | | Emerge | | | ncy | | | abd | | | pain, | | | emesis | | | Davi | | | 17, | | | 2019 | | | Good | | | [facility] | | | rd | | | Health | | | | | | [place] | | | [place] | | | Emerge | | | ncy | | | IBS | | | FLARE | | | May | | | 23, | | | 2019 | | | [facility] [place] | | | y H. | | | [place] | | | [place] | | | Emerge | | | ncy | | | | | | Hematu | | | karan, | | | unspec | | | ified | | | | | | Pure | | | hyperc | | | holest | | | erolem | | | ia, | | | unspec | | | ified | | | | | | Other | | | long | | | term | | | (curre | | | nt) | | | drug | | | therap | | | y | | | Allerg | | | y | | | status | | | to | | | penici | | | llin | | | | | | Allerg | | | y | | | status | | | to | | | other | | | antibi | | | otic | | | agents | | | | | | status | | | | | | Presen | | | ce of | | | cardia | | | c | | | pacema | | | ker | | | | | | Allerg | | | y | | | status | | | to | | | other | | | drugs, | | | | | | medica | | | ments | | | and | | | biolog | | | ical | | | substa | | | nces | | | status | | | | | | Acquir | | | ed | | | absenc | | | e of | | | other | | | specif | | | ied | | | parts | | | of | | | digest | | | rudolph | | | tract | | | | | | Allerg | | | y | | | status | | | to | | | narcot | | | ic | | | agent | | | status | | | | | | Allerg | | | y | | | status | | | to | | | analge | | | sic | | | agent | | | status | | | May | | | 10, | | | 2019 | | | [facility] [place] | | | [facility] | | | [place] | | | [place] | | | Emerge | | | ncy | | | | | | Hydron | | | ephros | | | is | | | with | | | renal | | | and | | | ureter | | | al | | | calcul | | | ous | | | obstru | | | ction | | | | | | Allerg | | | y | | | status | | | to | | | penici | | | llin | | | | | | Acquir | | | ed | | | absenc | | | e of | | | other | | | specif | | | ied | | | parts | | | of | | | digest | | | rudolph | | | tract | | | | | | Essent | | | ial | | | (prima | | | ry) | | | hypert | | | ension | | | | | | Long | | | term | | | (curre | | | nt) | | | use of | | | | | | aspiri | | | n | | | Pure | | | hyperc | | | holest | | | erolem | | | ia, | | | unspec | | | ified | | | | | | Other | | | long | | | term | | | (curre | | | nt) | | | drug | | | therap | | | y | | | Person | | | al | | | histor | | | y of | | | nicoti | | | ne | | | depend | | | ence | | | | | | Allerg | | | y | | | status | | | to | | | analge | | | sic | | | agent | | | status | | | | | | Unspec | | | ified | | | abdomi | | | nal | | | pain | | | May 3, | | | 2019 | | | Good | | | [facility] | | | rd | | | Health | | | | | | [place] | | | [place] | | | Emerge | | | ncy | | | CHEST | | | PAIN | | | | | | Other | | | chest | | | pain | | | Feb | | | 11, | | | 2019 | | | Provid | | | ence | | | St[facility] | | | [facility] | | | [place] | | | [place] | | | Emerge | | | ncy | | | chest | | | pain | | | | | | Chest | | | pain, | | | unspec | | | ified | | | Felice | | | 28, | | | 2019 | | | Good | | | [facility] | | | rd | | | Health | | | | | | [place] | | | [place] | | | Emerge | | | ncy | | | | | | Stomac | | | h | | | pain; | | | vomitt | | | ing | | | | | | Intest | | | inal | | | malabs | | | orptio | | | n, | | | unspec | | | ified | | | | | | Diarrh | | | ea, | | | unspec | | | ified | | | | | | Right | | | upper | | | quadra | | | nt | | | pain | | | Felice | | | 10, | | | 2019 | | | Good | | | [facility] | | | rd | | | Health | | | | | | [place] | | | [place] | | | Emerge | | | ncy | | | | | | NAUSEA | | | ;BLEED | | | ING | | | | | | Diarrh | | | ea, | | | unspec | | | ified | | | | | | Nausea | | | Sep | | | 5, | | | 2018 | | | Provid | | | ence | | | St[facility] | | | [facility] | | | [facility] | | | [place] | | | [place] | | | Emerge | | | ncy | | | cp | | | cp/ | | | curent | | | ly | | | wearin | | | g a | | | heart | | | monito | | | r | | | Chest | | | Pain | | | | | | Chest | | | pain, | | | unspec | | | ified | | | Aug | | | 20, | | | 2018 | | | Good | | | [facility] | | | rd | | | Health | | | | | | [place] | | | [place] | | | Emerge | | | ncy | | | Chief | | | Compla | | | int: | | | LOW | | | BACK | | | PAIN | | | HEADAC | | | HE | | | Recent | | | | | | Inpati | | | ent | | | Visit | | | Summar | | | yNo | | | record | | | ed | | | inpati | | | ent | | | visits | | | . | | | Additi | | | [...] | | | WILLIA | | | M, | | | M.D. | | | Laundry Clerk | | | al | | | Medici | | | ne | | | Cur[facility] | | | t | | | [facility] | | | [facility] | [facility] | | | L | | | C[facility] | | | | | | Primar | | | y Care | | | | | | Curren | | | [...] | | | t | | | Collec | | | tive | | | Portal | | | This | | | patien | | | [...] | | | ent/60 | | | [id number] | | | [phone] | | | [phone] | | | [id number] | | | [id number] | | | [id number] | | | PLEASE | | | NOTE: | | | 1. | | | Any | | | care | | | recomm | | | endati | | | ons | | | and | | | other | | | clinic | | | al | | | inform | | | ation | | | are | | | provid | | | ed as | | | guidel | | | queenie | | | or for | | | | | | histor | | | ical | | | purpos | | | es | | | only, | | | and | | | provid | | | ers | | | should | | | | | | exerci | | | se | | | their | | | own | | | clinic | | | al | | | judgme | | | nt | | | when | | | provid | | | ing | | | care. | | | 2. | | | You | | | may | | | only | | | use | | | this | | | inform | | | ation | | | for | | | purpos | | | es of | | | treatm | | | ent, | | | paymen | | | t or | | | health | | | care | | | operat | | | ions | | | activi | | | ties, | | | and | | | subjec | | | t to | | | the | | | limita | | | tions | | | of | | | applic | | | able | | | Collec | | | tive | | | Polici | | | es. | | | 3. | | | You | | | should | | | | | | consul | | | t | | | direct | | | ly | | | with | | | the | | | organi | | | zation | | | that | | | provid | | | ed a | | | care | | | guidel | | | ine or | | | other | | | | | | clinic | | | al | | | histor | | | y with | | | any | | | questi | | | ons | | | about | | | additi | | | onal | | | inform | | | ation | | | or | | | accura | | | cy or | | | comple | | | teness | | | of | | | inform | | | ation | | | provid | | | ed.? | | | 2019 | | | Collec | | | tive | | | Medica | | | l | | | [employer] | | | logies | | | , [employer] | | | - | | | [email or web address] | | | llecti | | | vemedi | | | maria [email or web address] | | | m | +---+--------+ documented in this encounter Results CT Abdomen Pelvis w Contrast (05/09/2019 4:50 PM PDT) + + | Specimen | + + | | + + + + + | Narrative | Performed At | + + + | ENHANCED CT ABDOMEN AND PELVIS 05/09/2019 4:40 PM CLINICAL | [facility] | | HISTORY: ABDOMINAL PAIN COMPARISON: CT March 11 and more | | | remote imaging TECHNIQUE: Axial images are performed through the | | | abdomen and pelvis following the uneventful intravenous | | | administration of 85 mL Omnipaque 350 contrast. Coronal and | | | sagittal reformations are also performed. ABDOMEN FINDINGS: | | | Pacemaker leads are partially imaged at the level of the right | | | heart. Imaged lung bases and mediastinum are otherwise unremarkable. | | | The liver, partially contracted gallbladder, spleen, pancreas and | | | adrenal glands are unremarkable. Previously noted left renal | | | calculi and the calculus at the left ureterovesical junction are no | | | longer apparent. Few tiny right renal calculi persist unchanged. | | | There is no hydroureteronephrosis. The appendix appears to be | | | surgically absent. The stomach and bowel are otherwise unremarkable | | | without evidence of obstruction or visible inflammation. No free | | | air, ascites, pathologic lymph node enlargement or hernia is evident. | | | There is scattered aortoiliac calcification. The abdominal | | | vasculature is otherwise unremarkable. Chronic right posterior lower | | | rib fractures are again evident. There is leftward lumbar | | | curvature with similar changes of interbody and posterior paris and | | | pedicle screw fusion at the transitional L5-S1 level. Some osseous | | | interbody bridging of the disc space is suggested at the level of the | | | interbody prostheses. Bones and soft tissues are otherwise | | | unremarkable. PELVIS FINDINGS: There is generalized prominence | | | of the wall of the bladder, which is likely accentuated by partial | | | decompression. The prostate and seminal vesicles are unremarkable. | | | Small, fat-containing bilateral inguinal hernias are again | | | apparent. No free air, ascites or pathologic lymph node enlargement | | | is evident. There is smooth convexity of the anterolateral | | | junctions of the femoral heads and necks with left-sided synovial | | | herniation pits, suggesting femoroacetabular impingement. | | | IMPRESSION - 1. NON-SPECIFIC PROMINENCE OF THE WALL OF THE | | | BLADDER, LIKELY ACCENTUATED BY PARTIAL DECOMPRESSION. CLINICAL AND | | | LABORATORY CORRELATION ADVISED. 2. NO RESIDUAL LEFT RENAL OR | | | URETERAL CALCULI OR HYDROURETERONEPHROSIS. 3. SIMILAR SMALL | | | RIGHT RENAL CALCULI WITHOUT VISIBLE URETERAL CALCULUS OR | | | HYDROURETERONEPHROSIS. 4. FAT-CONTAINING INGUINAL HERNIAS. | | | Images were provided for interpretation on May 09, 2019 at 1655 | | | hours. Results were finalized at 1710 hours. Dictated and | | | Signed by: Rangel Gibson MD Electronically signed: 05/09/2019 5:09 | | | PM | | + + + + + | Procedure Note | + + | Eneida, Rad Results In - 05/09/2019 5:[address] ABDOMEN AND PELVIS | | 05/09/2019 4:40 PM CLINICAL HISTORY: ABDOMINAL PAIN COMPARISON: CT May 11 and more | | remote imaging TECHNIQUE: Axial images are performed through the abdomen and pelvis | | followingthe uneventful intravenous administration of 85 mL Omnipaque 350 contrast. | | Coronal and sagittal reformations are also performed. ABDOMEN FINDINGS: Pacemaker | | leads are partially imaged at the level of theright heart. Imaged lung bases and | | mediastinum are otherwise unremarkable. Theliver, partially contracted gallbladder, | | spleen, pancreas and adrenal glands areunremarkable. Previously noted left renal | | calculi and the calculus at the leftureterovesical junction are no longer apparent. Few | | tiny right renal calculipersist unchanged. There is no hydroureteronephrosis. The | | appendix appears mireya surgically absent. The stomach and bowel are otherwise | | unremarkable withoutevidence of obstruction or visible inflammation. No free air, | | ascites,pathologic lymph node enlargement or hernia is evident. There is | | scatteredaortoiliac calcification. The abdominal vasculature is otherwise unremarkable. | | Chronic right posterior lower rib fractures are again evident. There isleftward lumbar | | curvature with similar changes of interbody and posterior rodand pedicle screw fusion | | at the transitional L5-S1 level. Some osseousinterbody bridging of the disc space is | | suggested at the level of the interbodyprostheses. Bones and soft tissues are otherwise | | unremarkable. PELVIS FINDINGS: There is generalized prominence of the wall of the | | bladder,which is likely accentuated by partial decompression. The prostate and | | seminalvesicles are unremarkable. Small, fat-containing bilateral inguinal hernias | | areagain apparent. No free air, ascites or pathologic lymph node enlargement isevident. | | There is smooth convexity of the anterolateral junctions of thefemoral heads and necks | | with left-sided synovial herniation pits, suggestingfemoroacetabular impingement. | | IMPRESSION - 1. NON-SPECIFIC PROMINENCE OF THE WALL OF THE BLADDER, LIKELY ACCENTUATED | | BYPARTIAL DECOMPRESSION. CLINICAL AND LABORATORY CORRELATION ADVISED.2. NO RESIDUAL | | LEFT RENAL OR URETERAL CALCULI OR HYDROURETERONEPHROSIS.3. SIMILAR SMALL RIGHT RENAL | | CALCULI WITHOUT VISIBLE URETERAL CALCULUS ORHYDROURETERONEPHROSIS.4. FAT-CONTAINING | | INGUINAL HERNIAS.Images were provided for interpretation on May 09, 2019 at 1655 hours. | | Resultswere finalized at 1710 hours.Dictated and Signed by: Rangel Gibson MD | | Electronically signed: 05/09/2019 5:09 PM | |femoral heads and necks with left-sided synovial herniation pits, suggesting | |femoroacetabular impingement. | | | |IMPRESSION - | |1. NON-SPECIFIC PROMINENCE OF THE WALL OF THE BLADDER, LIKELY ACCENTUATED BY | |PARTIAL DECOMPRESSION. CLINICAL AND LABORATORY CORRELATION ADVISED. | | | |2. NO RESIDUAL LEFT RENAL OR URETERAL CALCULI OR HYDROURETERONEPHROSIS. | | | |3. SIMILAR SMALL RIGHT RENAL CALCULI WITHOUT VISIBLE URETERAL CALCULUS OR | |HYDROURETERONEPHROSIS. | | | |4. FAT-CONTAINING INGUINAL HERNIAS. | | | |Images were provided for interpretation on May 09, 2019 at 1655 hours. Results | |were finalized at 1710 hours. | | | |Dictated and Signed by: Rangel Gibson MD | | Electronically signed: 05/09/2019 5:09 PM | + + + +---------+ + + | Performing | Address | City/State/Zipcode | Phone Number | | Organization | | | | + +---------+ + + | [facility] | | | | + +---------+ + + Extra Lavender Top Tube (05/09/2019 4:43 PM PDT) + +-------+ + + + | Component | Value | Ref Range | Performed | Pathologist | | | | | At | Signature | + +-------+ + + + | Extra | Done | | [facility] | | | Lavender | | | [facility] | | | Top Tube | | | MEDICAL | | | [...] [address] | [place] | [phone] | | [facility] | | [address] | | | - LABORATORY | | | | + + + + + Extra Green Top Tube (05/09/2019 4:43 PM PDT) + +-------+ + + + | Component | Value | Ref Range | Performed | Pathologist | | | | | At | Signature | + +-------+ + + + | Extra Green | Done | | [facility] | | | Top Tube | | | [facility] | | [...] [address] | [place] | [phone] | | [facility] | | [address] | | | - LABORATORY | | | | + + + + + Sedimentation Rate (05/09/2019 4:42 PM PDT) + +-------+ + + + | Component | Value | Ref Range | Performed | Pathologist | | | | | At | Signature | + +-------+ + + + | ESR | 6 | <20 mm/hr | [facility] | | | | | [...] + | [facility] | [address] | [place] | [phone] | | [facility] | | [address] | | | - LABORATORY | | | | + + + + + C-Reactive Protein, High Sensitivity (05/09/2019 4:42 PM PDT) + +-------+ + + + | Component | Value | Ref Range | Performed | Pathologist | | | | | At | Signature | + +-------+ + + + | CRP, High | 1.11 | <=3.00 mg/L | [facility] | | | Sensitive | | | [facility] | [...] + | [facility] | [address] | [place] | [phone] | | [facility] | | [address] | | | - LABORATORY | | | | + + + + + Lipase (05/09/2019 4:42 PM PDT) + +-------+ + + + | Component | Value | Ref Range | Performed | Pathologist | | | | | At | Signature | + +-------+ + + + | Lipase | 38 | 12 - 53 U/L | [facility] | | | | | | [facility] | | | [...] [address] | [place] | [phone] | | [facility] | | [address] | | | - LABORATORY | | | | + + + + + Comprehensive Metabolic Panel (05/09/2019 4:42 PM PDT) + + + + + + | Component | Value | Ref Range | Performed | Pathologist | | | | | At | Signature | + + + + + + | Na | 138 | 136 - 145 | [facility] | | | | | mmol/L | [facility] | | | | | | MEDICAL | | | | | | CENTER - | | | | | | LABORATORY | | + + + + + + | K | 3.9 | 3.4 - 5.1 | [facility] | [...] + + + + | CO2 | 30 | 20 - 31 mmol/L | [facility] | | | | | | [facility] | | | | | | MEDICAL | | | | | | CENTER - | | | | | | LABORATORY | | + + + + + + | Anion Gap | 0 (L) | 3 - 16 mmol/L | [facility] | | | | | | [facility] | | | | | | MEDICAL | | | | | | CENTER - | | | | | | LABORATORY | | + + + + + + | Glucose | 86 | 60 - 106 mg/dL | [facility] | | | | | | [facility] | | | | | | MEDICAL | | | | | | CENTER - | | | | | | LABORATORY | | + + + + + + | BUN | 10 | 9 - 23 mg/dL | [facility] | | | | | | [facility] | | | | | | MEDICAL | | | | | | CENTER - | | | | | | LABORATORY | | + + + + + + | Creatinine | 0.96 | 0.70 - 1.30 | [facility] | | | | | mg/dL | [facility] | | | | | | MEDICAL | | | | | | CENTER - | | | | | | LABORATORY | | + + + + + + | eGFR if not | >60Comment: GLOMERULAR | >=60 | [facility] | | | | FILTRATION | mL/min/1.73m2 | [facility] | | | [facility] | RATE,ESTIMATED | | MEDICAL | | | | mL/min/[id number] than | | CENTER - | | [...] + + | Calcium | 9.3 | 8.7 - 10.4 | [facility] | | | | | mg/dL | [facility] | | | | | | MEDICAL | | | | | | CENTER - | | | | | | LABORATORY | | + + + + + + | Albumin | 4.3 | 3.2 - 4.8 g/dL | [facility] | | | | | | [facility] | | | | | | [facility] | | | | | | CENTER - | | | | | | LABORATORY | | + + + + + + | Bilirubin | 0.7 | 0.3 - 1.2 mg/dL | [facility] | | | Total | | | [facility] | | | | | | [facility] | | | | | | CENTER - | | | | | | LABORATORY | | + + + + + + | Total | 6.4 | 5.7 - 8.2 g/dL | [facility] | | | Protein | | | [facility] | | | | | | [facility]ICAL | | | | | | CENTER - | | | | | | LABORATORY | | + + + + + + | AST | 29 | 0 - 34 U/L | [facility] | | | | | | [facility] | | | | | | [facility] | | | | | | [facility] - | | | | | | LABORATORY | | + + + + + + | ALT | 24 | 10 - 49 U/L | [facility] | | | | | | [facility] | | [facility] | [facility] | | | | | | [facility] - | | | | | | LABORATORY | | + + + + + + | Alkaline | 69 | 46 - 116 U/L | [facility] | | | Phosphatase | | | [facility] | | | | | | [facility] | | | | | | CENTER - | | | | | | LABORATORY | | + + + + + + | Globulin | 2.1 | 2.1 - 3.8 g/dL | [facility] | | | | | | [facility] | | | | | | [facility] | | | | | | CENTER - | | | | | | LABORATORY | | + + + + + + | Albumin/Sandee | 2.0 (H) | 0.8 - 1.9 | [facility] | | | bulin Ratio | | | [facility] | [facility] | [facility] | | | | | | C[facility] - | | | | | | LABORATORY | | + + + + + + | BUN/Creatin | 10.4 | | [facility] | | | ine [...] [address] | [place] | [phone] | | [facility] | | [address] | | | - LABORATORY | | | | + + + + + CBC with Differential (05/09/2019 4:42 PM PDT) + +-------+ + + + | Component | Value | Ref Range | Performed | Pathologist | | | | | At | Signature | + +-------+ + + + | WBC | 6.5 | 4.0 - 11.0 K/uL | [facility] | | | | | | [facility] | | [facility] | [facility] | | | | | | CENTER - | | | | | | LABORATORY | | + +-------+ + + + | RBC | 4.76 | 4.30 - 5.70 | [facility] | | | | | M/uL | [facility] | | [facility] | | | MEDICAL | | | | | | CENTER - | | | | | | LABORATORY | | + +-------+ + + + | Hemoglobin | 16.4 | 13.5 - 18.0 | [facility] | | | | | g/dL | [facility] | | | [facility] | | MEDICAL | | | | | | CENTER - | | | | | | LABORATORY | | + +-------+ + + + | Hematocrit | 46.3 | 40.0 - 51.0 % | [facility] | | | | | | [facility] | | | | | | MEDICAL | | | | | | CENTER - | | | | | | LABORATORY | | + +-------+ + + + | MCV | 97.3 | 83.0 - 101.0 fL | [facility] | | | | | | [facility] | | | | | | MEDICAL | | | | | | CENTER - | | | | | | LABORATORY | | + +-------+ + + + | MCH | 34.5 | 28.0 - 35.0 pg | [facility] | | | | | | [facility] | | | | | | MEDICAL | | | | | | CENTER - | | | | | | LABORATORY | | + +-------+ + + + | MCHC | 35.4 | 32.0 - 36.0 | [facility] | | | | | g/dL | [facility] | | | | | | MEDICAL | | | | | | CENTER - | | | | | | LABORATORY | | + +-------+ + + + | RDW-CV | 11.7 | <15.0 % | [facility] | | | | | | [facility] | | | | | | MEDICAL | | | | | | CENTER - | | | | | | LABORATORY | | + +-------+ + + + | RDW-SD | 42.1 | 35.1 - 46.3 fL | [facility] | | | | | | [facility] | | [facility] | | | MEDICAL | | | | | | CENTER - | | | | | | LABORATORY | | + +-------+ + + + | Platelet | 154 | 140 - 440 K/uL | [facility] | | | Count | | | [facility] | | | | | | MEDICAL | | | | | | CENTER - | | | | | | LABORATORY | | + +-------+ + + + | MPV | 10.6 | 6.5 - 12.4 fL | [facility] | | | | | | [facility] | | | | | | MEDICAL | | | | | | CENTER - | | | | | | LABORATORY | | + +-------+ + + + | % | 64.1 | 45.0 - 82.0 % | [facility] | | | Neutrophils | | | [facility] | | | | | | MEDICAL | | | | | | CENTER - | | | | | | LABORATORY | | + +-------+ + + + | % | 25.8 | 20.0 - 45.0 % | [facility] | | | Lymphocytes | | | [facility] | | | | | | MEDICAL | | | | | | CENTER - | | | | | | LABORATORY | | + +-------+ + + + | % Monocytes | 8.8 | 4.0 - 12.0 % | [facility] | | | | | | [facility] | | | | | | MEDICAL | | | | | | CENTER - | | | | | | LABORATORY | | + +-------+ + + + | % | 0.5 | 0.0 - 5.0 % | [facility] [...] + +-------+ + + + | % Immature | 0.2 | 0.0 - 0.4 % | [facility] | | | Granulocyte | | | [facility] | | | s | | | MEDICAL | | | | | | CENTER - | | | | | | LABORATORY | | + +-------+ + + + | Absolute | 4.15 | 1.80 - 8.50 | [facility] | | | Neutrophils | | K/uL | [facility] | | | | | | MEDICAL | | | | | | CENTER - | | | | | | LABORATORY | | + +-------+ + + + | Absolute | 1.67 | 0.60 - 3.20 | [facility] | | | Lymphocytes | | K/uL | [facility] | | | | | | MEDICAL | | | | | | CENTER - | | | | | | LABORATORY | | + +-------+ + + + | Absolute | 0.57 | 0.00 - 1.00 | [facility] | | | Monocytes | | K/uL | [facility] | | | | | | MEDICAL | | | | | | CENTER - | | | | | | LABORATORY | | + +-------+ + + + | Absolute | 0.03 | 0.00 - 0.40 | [facility] | | | Eosinophils | | K/uL | [facility] | | | | | [facility] | | | | | | CENTER - | | | | | | LABORATORY | | + +-------+ + + + | Absolute | 0.04 | 0.00 - 0.10 | [facility] | | | Basophils | | K/uL | [facility] | | | | | | MEDICAL | | | | | | CENTER - | | | | | | LABORATORY | | + +-------+ + + + | Absolute | 0.01 [...] | | nRBC | | K/uL | [facility] | | | [...] [address] | [place] | [phone] | | [facility] | | [address] | | | - LABORATORY | | | | + + + + + Urinalysis with Microscopic with Culture if Indicated (05/09/2019 2:52 PM PDT) + + + + + + | Component | Value | Ref Range | Performed | Pathologist | | | | | At | Signature | + + + + + + | Color | Yellow | Light Yellow, | [facility] | | | | | Yellow, Straw | [facility] | | | | [...] + + + | pH, Urine | 8.0 | 5.0 - 8.0 | [facility] | | | | | | [facility] | | | | | | MEDICAL | | | | | | CENTER - | | | | | | LABORATORY | | + + + + + + | Specific | 1.008 | 1.001 - 1.030 | [facility] | | | [place] | | | [facility] | | | | | | MEDICAL | | | | | | CENTER - | | | | | | LABORATORY | | + + + + + + | Protein, | Negative | Negative | [facility] | | | Urine | | | [facility] | | | | | | MEDICAL | | | | | | CENTER - | | | | | | LABORATORY | | + + + + + + | Blood, | Negative | Negative | [facility] | | | Urine | | | [facility] | | | | | | MEDICAL | | | | | | CENTER - | | | | | | LABORATORY | | + + + + + + | Glucose, | Negative | Negative | [facility] | | | Urine | | | [facility] | | | | | | MEDICAL | | | | | | CENTER - | | | | | | LABORATORY | | + + + + + + | Ketones, | Negative | Negative | [facility] | | | Urine | | | [facility] | | | | | | MEDICAL | | | | | | CENTER - | | | | | | LABORATORY | | + + + + + + | Bilirubin, | Negative | Negative | [facility] | | | Urine | | | [facility] | | | | | | MEDICAL | | | | | | CENTER - | | | | | | LABORATORY | | + + + + + + | Nitrite, | Negative | Negative | [facility] | | | Urine | | | [facility] | | | | | | MEDICAL | | | | | | CENTER - | | | | | | LABORATORY | | + + + + + + | Leukocyte | Negative | Negative | [facility] | | | Esterase, | | | [facility] | | | Urine | | | MEDICAL | | | | | | CENTER - | | | | | | LABORATORY | | + + + + + + | Urobilinoge | Negative | 0.2 mg/dL, 1.0 | [facility] | | | n, Urine | | mg/dL, Negative | [facility] | | | | [...] | | EPITHELIAL | | | [facility] | | | UA | | | MEDICAL | | | | | | CENTER - | | | | | | LABORATORY | | + + + + + + | BACTERIA UA | 1+ (A) | Negative /HPF | [facility] | | | | | | [facility] | | | | | | MEDICAL | | | | | | CENTER - | | | | | | LABORATORY | | + + + + + + | URINE | Urine Culture Not | | [facility] | | | COMMENT | Indicated | | [facility] | | | | | | MEDICAL | | | | | | CENTER - | | | | | | LABORATORY | | + + + + + + + + | Specimen | + + | Urine - Urine | | specimen obtained by | | clean catch | | procedure (specimen) | + + + + + + + | Performing | Address | City/State/Zipcode | Phone Number | | Organization | | | | + + + + + | [facility] | [address] | [place], [place] | [phone] | | [facility] | | [address] | | | - LABORATORY | | | | + + + + + documented in this encounter Visit Diagnoses + + | Diagnosis | + + | Functional diarrhea - Primary | + + documented in this encounter Administered Medications + +--------+ +--------+------+------+ | Medication Order | MAR | Action | Dose | Rate | Site | | | Action | Date | | | | + +--------+ +--------+------+------+ | iohexol (OMNIPAQUE 350) 350 | Given | 05/09/20 | 85 mLs | | | | mg/mL injection 85 mL 85 mL, | | 19 4:48 | | | | | Intravenous, ONCE PRN, Other, for | | PM PDT | | | | | imaging CT study, Starting Tue | | | | | | | 05/09/19 at 1650, For 1 dose, | | | | | | | Radiology | | | | | | + +--------+ +--------+------+------+ +---+---+ | | | +---+---+ + +---------+ +--------+-------+---+ | sodium chloride 0.9% (NS) bolus | New Bag | 05/09/20 | 1,000 | 2000 | | | 1,000 mL 1,000 mL, Intravenous, | | 19 4:58 | mLs | mL/hr | | | Administer over 30 Minutes, | | PM PDT | | | | | ONCE, 05/09/19 at 1615, For 1 | | | | | | | dose | | | | | | + +---------+ +--------+-------+---+ +---+---+ | | | +---+---+ documented in this encounter"
--- OUTSIDE RECORDS SUMMARY | ~2019-10-27 | XMS | Encounter Summary ---
Demographics + + + | Address | [address] | | | [place] [address] | + + + | Home Phone [...] Team Providers + +------+ + | Care Detective Sergeant Name | Role | Phone | + [...] | CARDIOLOGY [address] | MD [address] [place] | | | | | [place], | [place], | | | | | [place] [address] | [place] [address] | | | | | [phone] | [phone] | | | | | | | [...] W | | | | | | [place], | | | | | | [place] [address] | | | | | | [phone] | | | | | | | | +--------+ + + + + | 11/20/ | Implant | Cardiology | Daljit Singletary, | Remote Device | | 2018 | Monitor | | [address] [facility] | Interrogation | | | | | [place], | (Primary Dx); | | | | | [place] [address] | Presence of | | | | | [phone] | permanent cardiac | | | | [...]
--- OUTSIDE RECORDS SUMMARY | ~2019-10-27 | XMS | Encounter Summary ---
Demographics + + + | Address | [address] | | | [place] [address] | + + + | Home Phone [...] Team Providers + +------+ + | Care Burning Plant Operator Name | Role | Phone | [...] | +--------+ + + + + | 11/02/ | Telephone | [facility] | Daljit Singletary, | Other | | 2015 | | CARDIOLOGY [address] | MD [address] [place] | | | | | [place], | [place], | | | | | [place] [address] | [place] [address] | | | | | [phone] | [phone] | | | | | | | [...] W | | | | | | [place], | | | | | | [place] [address] | | | | | | [phone] | | | | | | | | +--------+ + + + + | 11/20/ | Implant | Cardiology | Daljit Singletary, | Remote Device | | 2018 | Monitor | | MD Chiquis Oro | Interrogation | | | | | [place], | (Primary Dx); | | | | | [place] [address] | Presence of | | | | | [phone] | permanent cardiac | | | | [...]
--- OUTSIDE RECORDS SUMMARY | ~2019-10-27 | XMS | Encounter Summary ---
Demographics + + + | Address | [address] | | | [place] [address] | + + + | Home Phone [...] Team Providers + +------+ + | Care Pasting Inspector Name | Role | Phone | [...] + | 01/24/ | Telephone | [facility] | Daljit Singletary, | Other | | 2019 | | CARDIOLOGY [address] | MD [address] [place] | | | | | [place], | [place], | | | | | [place] [address] | [place] [address] | | | | | [phone] | [phone] | | | | | | | [...] [place], | | | | | | [place] [address] | | | | | | [phone] | | | | | | | | +--------+ + + + + | 11/20/ | Implant | Cardiology | Daljit Singletary, | Remote Device | | 2018 | Monitor | | MD [address] [place] [address] | Interrogation | | | | | [place], | (Primary Dx); | | | | | [place] [address] | Presence of | | | | | [phone] | permanent cardiac | | | | [...]
--- OUTSIDE RECORDS SUMMARY | ~2019-10-27 | XMS | Encounter Summary ---
Demographics + + + | Address | [address] | | | [place] [address] | + + + | Home Phone [...] Team Providers + +------+ + | Care Sprinkler Fitter Apprentice Name | Role | Phone | + +------+ + | Michael Amanda DO | PCP | | + +------+ + Reason for Visit + + + | Reason | Comments | + + + | Chest Pain | Patient having chest pain | + + + Encounter Details +--------+ + + + + | Date | Type | Department | Care Team | Description | +--------+ + + + + | 02/27/ | Telephone | [facility] | [place], | Chest Pain (Patient | | 2013 | | CARDIOLOGY [address] | Janeen, PERSONNEL ASSISTANT [address] | having chest pain) | | | | [place], | [place], | | | | | [place] [address] | [place] [address] | | | | | [phone] | [phone] | | | | | | | [...] W | | | | | | [place], | | | | | | [place] [address] | | | | | | [phone] | | | | | | | | +--------+ + + + + | 11/20/ | Implant | Cardiology | Daljit Singletary, | Remote Device | | 2018 | Monitor | | [address] [place] | Interrogation | | | | | [place], | (Primary Dx); | | | | | [place] [address] | Presence of | | | | | [phone] | permanent cardiac | | | | [...]
--- OUTSIDE RECORDS SUMMARY | ~2019-10-27 | XMS | Encounter Summary ---
Demographics + + + | Address | [address] | | | [place] [address] | + + + | Home Phone [...] Team Providers + +------+ + | Care Scientific Process Operator Name | Role | Phone | + +------+ + | Kirk Frenhc MD | PCP | | + +------+ + Encounter Details +--------+ + + + + | Date | Type | Department | Care Team | Description | +--------+ + + + + | 12/06/ | Orders Only | [facility] [place] | Darlene Tirado, | | | 2014 | | CARDIOLOGY [address] | RN | | | | | [place], | | | | | | [place] [address] | | | | | | [phone] | | | +--------+ + + + [...] [place], | | | | | | [place] [address] | | | | | | [phone] | | | | | | | | +--------+ + + + + | 11/20/ | Implant | Cardiology | Daljit Singletary, | Remote Device | | 2019 | Monitor | | [address] [facility] | Interrogation | | | | | [place], | (Primary Dx); | | | | | [place] [address] | Presence of | | | | | [phone] | permanent cardiac | | | | [...]
--- OUTSIDE RECORDS SUMMARY | ~2019-10-27 | XMS | Encounter Summary ---
Demographics + + + | Address | [address] | | | [place] [address] | + + + | Home Phone [...] Providers + +------+ + | Care Accounts Administrator Name | Role | Phone | [...] + | 11/02/ | Telephone | [facility] | Daljit Singletary, | Other | | 2015 | | CARDIOLOGY [address] | MD [address] [place] | | | | | [place], | [place], | | | | | [place] [address] | [place] [address] | | | | | [phone] | [phone] | | | | | | | [...] W | | | | | | [place], | | | | | | [place] [address] | | | | | | [phone] | | | | | | | | +--------+ + + + + | 11/20/ | Implant | Cardiology | Daljit Singletary, | Remote Device | | 2018 | Monitor | | MD Chiquis Oro | Interrogation | | | | | [place], | (Primary Dx); | | | | | [place] [address] | Presence of | | | | | [phone] | permanent cardiac | | | | [...]
--- OUTSIDE RECORDS SUMMARY | ~2019-10-27 | XMS | Encounter Summary ---
Demographics + + + | Address | [address] | | | [place] [address] | + + + | Home Phone [...] Team Providers + +------+ + | Care Election Clerk Name | Role | Phone | [...] [address] | | | | | | [place], [place] | (Fax) | | | | | [address] | | | | | | [phone] | | | +--------+ + + + [...] | | | | | | [place] [address] | | | | | | [phone] | | | | | | | | +--------+ + + + + | 11/20/ | Implant | Cardiology | Daljit Singletary, | Remote Device | | 2018 | Monitor | | [address] [facility] [place] | Interrogation | | | | | [place], | (Primary Dx); | | | | | [place] [address] | Presence of | | | | | [phone] | permanent cardiac | | | | [...]
--- OUTSIDE RECORDS SUMMARY | ~2019-10-27 | XMS | Encounter Summary ---
Demographics + + + | Address | [address] | | | [place] [address] | + + + | Home Phone [...] Providers + +------+ + | Care Document Management Consultant Name | Role | Phone | + +------+ + PCP | Unavailable | + +------+ + Encounter Details +--------+ + + + + | Date | Type | Department | Care Team | Description | +--------+ + + + + | 06/25/ | [facility] | [facility] | Daljit Singletary, | | | 2008 | Encounter | MED CTR XRAY [address] | [address] [place] | | | | | [place] | [place], | | | | | [place] [address] | [place] [address] | | | | | [phone] | [phone] | | | | | | | [...] W | | | | | | [place], | | | | | | [place] [address] | | | | | | [phone] | | | | | | | | +--------+ + + + + | 11/20/ | Implant | Cardiology | Daljit Singletary, | Remote Device | | 2019 | Monitor | | MD [address]iqu[address]ro | Interrogation | | | | | [place], | (Primary Dx); | | | | | [place] [address] | Presence of | | | | | [phone] | permanent cardiac | | | | [...]
--- OUTSIDE RECORDS SUMMARY | ~2019-10-27 | XMS | Encounter Summary ---
Demographics + + + | Address | [address] | | | [place] [address] | + + + | Home Phone [...] Team Providers + +------+ + | Care Delivery Architect Name | Role | Phone | [...] + + | 06/25/ | Office | [facility] | [place], | SINUS BRADYCARDIA | | 2013 | Visit | CARDIOLOGY [address] | PARISA [place] [address] | (Primary Dx); | | | | Agency [place], | Agency [place], | Symptomatic PVCs; | | | | [place] [address] | [place] [address] | Coronary artery | | | | [phone] | [phone] | disease; | | | | | [...] time, he was admitted over observation at [facility] for a chest pain. Aortogram revealed [...] needed for Chest pain. 25 tablet 12 [place]-3 Fatty Acids (SALMON OIL-1000 PO) CAPS, one capsule by mouth daily twice daily ONE TOUCH DELICA LANCETS [facility] Check glucose as needed for hypoglycemia 100 [...] HGBEX 16.1 01/25/2014 I reviewed records from [facility] for emergency department visit o n [...] attenuation cannot completely be ruled out. [facility] 12/25/13, shows non critical coronary artery [...] yard. He is in class I-II of [place] [employer] funct ional class. There are [...] arrhythmia performed by Dr. Gambino at [facility] on 01/30/2013. Patient had spontaneous [...] to go back in 3 days to [place] for an attempt of ablation under general [...] dizziness. He is in class I-II of [place] Heart 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 There are no [...] made to ensure accuracy; however, inadvertent computerized char filter tank tender head errors may be pre sent. Electronically signed [...] W | | | | | | Agency [place], | | | | | | [place] [address] | | | | | | [phone] | | | | | | | | +--------+ + + + + | 11/20/ | Implant | Cardiology | Daljit Singletary, | Remote Device | | 2018 | Monitor | | [address] [place] | Interrogation | | | | | [place], | (Primary Dx); | | | | | [place] [address] | Presence of | | | | | [phone] | permanent cardiac | | | | [...] of unspecified type of vessel, | | [place] or graft | + + | Hypertension Unspecified essential hypertension | + + | Syncope Syncope and collapse | + + | Hyperlipidemia Other and unspecified hyperlipidemia | + + documented in this encounter
--- OUTSIDE RECORDS SUMMARY | ~2019-10-27 | XMS | Encounter Summary ---
Demographics + + + | Address | [address] | | | [place] [address] | + + + | Home Phone [...] Providers + +------+ + | Care Food Tester Name | Role | Phone | + +------+ + PCP | Unavailable | + +------+ + Encounter Details +--------+ + + + + | Date | Type | Department | Care Team | Description | +--------+ + + + + | 06/17/ | Hospital | [facility] | | | | 2007 | Encounter | MED CTR EMERGENCY | | | | | | [place] [address] | | | | | | [place] | | | | | | [address] | | | | | | [phone] | | | +--------+ + + + [...] | | | | | | [place] [address] | | | | | | [phone] | | | | | | | | +--------+ + + + + | 11/20/ | Implant | Cardiology | Daljit Singletary, | Remote Device | | 2018 | Monitor | | [address] [facility] | Interrogation | | | | | [place], | (Primary Dx); | | | | | [place] [address] | Presence of | | | | | [phone] | permanent cardiac | | | | [...]
--- OUTSIDE RECORDS SUMMARY | ~2019-10-27 | XMS | Encounter Summary ---
Demographics + + + | Address | [address] | | | [place] [address] | + + + | Home Phone [...] Team Providers + +------+ + | Care Banquet Prep Cook Name | Role | Phone | + +------+ + PCP | Unavailable | + +------+ + Encounter Details +--------+ + + + + | Date | Type | Department | Care Team | Description | +--------+ + + + + | 08/02/ | Hospital | [facility] | | | | 2001 | Encounter | MED CTR EMERGENCY | | | | | | [place] [address] | | | | | | [place] | | | | | | [address] | | | | | | [phone] | | | +--------+ + + + [...] | | | | | | [place] [address] | | | | | | [phone] | | | | | | | | +--------+ + + + + | 11/20/ | Implant | Cardiology | Daljit Singletary, | Remote Device | | 2018 | Monitor | | [address] [facility] | Interrogation | | | | | [place], | (Primary Dx); | | | | | [place] [address] | Presence of | | | | | [phone] | permanent cardiac | | | | [...]
--- OUTSIDE RECORDS SUMMARY | ~2019-10-27 | XMS | Encounter Summary ---
Demographics + + + | Address | [address] | | | [place] [address] | + + + | Home Phone [...] Providers + +------+ + | Care County Sheriff Name | Role | Phone | + [...] + + + + | 12/29/ | Procedure | [facility] [place] | Daljit Singletary, | Pacemaker | | 2017 | visit | CARDIOLOGY [address] | [address] [place] | reprogramming/check | | | | [place], | [place], | DO NOT DELETE | | | | [place] [address] | [place] [address] | (Primary Dx); | | | | [phone] | [phone] | Sinoatrial node | | | | | | dysfunction ([facility]) | | | | | | [...] W | | | | | | [place], | | | | | | [place] [address] | | | | | | [phone] | | | | | | | | +--------+ + + + + | 11/20/ | Implant | Cardiology | Daljit Singletary, | Remote Device | | 2018 | Monitor | | MD [address] [place] | Interrogation | | | | | [place], | (Primary Dx); | | | | | [place] [address] | Presence of | | | | | [phone] | permanent cardiac | | | | [...] + | DEVICE INTERROGATION | Routin | 12/29/2016 | Pacemaker | Results for this | | | e | 1:41 PM | reprogramming/check | procedure are in the | | | | PST | DO NOT DELETE | results section. [...] | LABS - EXTERNAL SCAN | | 11/05/2016 | | Results for this | | | | 12:00 AM | | procedure are in the | | | | PST | | results section. | + +--------+ + + + | ECG - EXTERNAL SCAN | | 11/05/2016 | | Results for this | | | | 12:00 AM | | procedure are in the | | | | PST | | results section. | + +--------+ + + + | IMAGING REPORT - | | 01/06/2016 | | Results for this | | EXTERNAL SCAN | | 12:00 AM | | procedure are in the | | | | PST | | results section. | + +--------+ + + + documented in this encounter Results Device Interrogation (12/29/2016 1:41 PM PST) + + + | Narrative | Performed At | + + + | Daljit | [facility] | | MD [facility] 12/29/2016 13:41 PATIENT NAME: Moe Bradley | | | Laura : 1960: AGE: 56 y.o. Pacemaker Evaluation | | | Report December 29, 2016 Reason for evaluation: routineIndication for | [...] | | for further details.Data collected by Nataly Teague RN The | | | technical aspect of downloading device data was supervised by Daljit | | | MD [facility] Underlying rhythm: Sinus Bradycardia between 47-620 mode | | | switch episodes accounting for 0% of the time. 0 atrial high rate | | | episodes. 0 ventricular high rate episodes. PVC singles 1,186 | | | PVC singles /month 197.6PVC runs 7 PVC | | | runs /month 1.1Histogram fair. Battery longevity 3.5 years.Normal | | | and stable device function.Prefers office checks. Device interrogation | | | due in office in 6 months. | | |Pacing impedances were reviewed for [...] | |details. | | |Data collected by Nataly Teague RN | | | | | |The technical aspect of downloading device data was supervised by | | |Daljit Singletary MD | | | | | | | | |Underlying rhythm: Sinus Bradycardia between 47-62 | | |0 mode switch episodes accounting for 0% of the time. | | |0 atrial high rate episodes. | | |0 ventricular high rate episodes. | | |PVC singles 1,186 PVC singles /month 197.6 | | |PVC runs 7 PVC runs /month 1.1 | | |Histogram fair. Battery longevity 3.5 years. | | |Normal and stable device function. | | |Prefers office checks. | | |Device interrogation due in office in 6 months. | | | | | | | | + + + + +---------+ + + | Performing | Address | City/State/Zipcode | Phone Number | | Organization | | | | + +---------+ + + | [facility] | | | | + +---------+ + + LABS - EXTERNAL SCAN (11/05/2016 12:00 AM PST) + + + | Narrative | Performed At | + + + | Ordered by an | | | unspecified provider. | | + + + ECG - EXTERNAL SCAN (11/05/2016 12:00 AM PST) + + + | Narrative | Performed At | + + + | Ordered by an | | | unspecified provider. | | + + + IMAGING REPORT - EXTERNAL SCAN (01/06/2016 12:00 AM PST) + + + | Narrative | Performed At | + + + | Ordered by an | | | unspecified provider. | | + + + documented in [...]
--- OUTSIDE RECORDS SUMMARY | ~2019-10-27 | XMS | Encounter Summary ---
Demographics + + + | Address | [address] | | | [place] [address] | + + + | Home Phone [...] Team Providers + +------+ + | Care Industrial Economics Professor Name | Role | Phone [...] | MED CTR EXTERNAL | MD [address]yer [address] | | | | | IMAGING | Jay [place]PE | | | | | [phone] | [place] [address] | | +--------+ + + + + [...] [place], | | | | | | [place] [address] | | | | | | [phone] | | | | | | | | +--------+ + + + + | 11/20/ | Implant | Cardiology | Daljit Singletary, | Remote Device | | 2019 | Monitor | | [facility] | Interrogation | | | | | [place], | (Primary Dx); | | | | | [place] [address] | Presence of | | | | | [phone] | permanent cardiac | | | | [...] for comparison only - no result from [place]. | | + + + + +---------+ + + | Performing | Address | City/State/Zipcode | Phone Number | | Organization | | | | + +---------+ + + | [facility] | | | | + +---------+ + + documented in this encounter Visit Diagnoses Not on filedocumented in this encounter"
--- OUTSIDE RECORDS SUMMARY | ~2019-10-27 | XMS | Encounter Summary ---
Demographics + + + | Address | [address] | | | [place] [address] | + + + | Home Phone [...] Team Providers + +------+ + | Care Occupational Health Physician Name | Role | Phone | + +------+ + | Kirk French MD | PCP | | + +------+ + Reason for Visit +--------+ + | Reason | Comments | +--------+ + | Other | issues with low blood pressure and dizziness | +--------+ + Encounter Details +--------+ + + + + | Date | Type | Department | Care Team | Description | +--------+ + + + + | 04/12/ | Telephone | [facility] | Daljit Singletary, | Other (issues with | | 2017 | | CARDIOLOGY [address] | MD [address] [place] | low blood pressure | | | | [place], | [place], | and dizziness) | | | | [place] [address] | [place] [address] | | | | | [phone] | [phone] | | | | | | | [...] W | | | | | | [place], | | | | | | [place] [address] | | | | | | [phone] | | | | | | | | +--------+ + + + + | 11/20/ | Implant | Cardiology | Daljit Singletary, | Remote Device | | 2018 | Monitor | | [address] [place] | Interrogation | | | | | [place], | (Primary Dx); | | | | | [place] [address] | Presence of | | | | | [phone] | permanent cardiac | | | | [...]
--- OUTSIDE RECORDS SUMMARY | ~2019-10-27 | XMS | Encounter Summary ---
Demographics + + + | Address | [address] | | | [place] [address] | + + + | Home Phone [...] Team Providers + +------+ + | Care Gluer Machine Operator Name | Role | Phone | + +------+ + | Michael Amanda DO | PCP | | + +------+ + Encounter Details +--------+ + + + + | Date | Type | Department | Care Team | Description | +--------+ + + + + | 09/22/ | Hospital | [facility] | Bahman Gant MD | | | 2012 | Encounter | MED CTR XRAY [address] | [address] [place] | | | | | [place] | [address] [place], | | | | | [place] [address] | [place] [address] | | | | | [phone] | [phone] | | | | | | | [...] + + + +---------+ + + | Grandy-3 Fatty | CAPS, one capsule by | [...] W | | | | | | [place], | | | | | | [place] [address] | | | | | | [phone] | | | | | | | | +--------+ + + + + | 11/20/ | Implant | Cardiology | Daljit Singletary, | Remote Device | | 2019 | Monitor | | MD [place]iqu[place] | Interrogation | | | | | [place], | (Primary Dx); | | | | | [place] [address] | Presence of | | | | | [phone] | permanent cardiac | | | | [...]
--- OUTSIDE RECORDS SUMMARY | ~2019-10-27 | XMS | Encounter Summary ---
Demographics + + + | Address | [address] | | | [place] [address] | + + + | Home Phone [...] Team Providers + +------+ + | Care College Recruiter Name | Role | Phone | + [...] + + | 08/19/ | Telephone | [facility] | Silvia, | Other (patient | | 2016 | | CARDIOLOGY [address] | [place] [address] | having issues with | | | | [place], | [place], | high blood pressure) | | | | [place] [address] | [place] [address] | | | | | [phone] | [phone] | | | | | | | [...] W | | | | | | [place], | | | | | | [place] [address] | | | | | | [phone] | | | | | | | | +--------+ + + + + | 11/20/ | Implant | Cardiology | Daljit Singletary, | Remote Device | | 2019 | Monitor | | MD [place] | Interrogation | | | | | [place], | (Primary Dx); | | | | | [place] [address] | Presence of | | | | | [phone] | permanent cardiac | | | | [...]
--- OUTSIDE RECORDS SUMMARY | ~2019-10-27 | XMS | Encounter Summary ---
Demographics + + + | Address | [address] | | | [place] [address] | + + + | Home Phone [...] Team Providers + +------+ + | Care Communications Advisor Name | Role | Phone | + +------+ + PCP | Unavailable | + +------+ + Encounter Details +--------+ + + + + | Date | Type | Department | Care Team | Description | +--------+ + + + + | 11/14/ | [facility] | [facility] | William Hirsch | | | 1999 | Encounter | MED CTR EMERGENCY | MD Cristobal [address] | | | | | CENTER [address] [place] | [address] | | | | | [place] | [place] [address] | | | | | [address] | [phone] | | | | | [phone] | | | +--------+ + + + [...] [place], | | | | | | [place] [address] | | | | | | [phone] | | | | | | | | +--------+ + + + + | 11/20/ | Implant | Cardiology | Daljit Singletary, | Remote Device | | 2018 | Monitor | | MD [place] | Interrogation | | | | | [place], | (Primary Dx); | | | | | [place] [address] | Presence of | | | | | [phone] | permanent cardiac | | | | [...]
--- OUTSIDE RECORDS SUMMARY | ~2019-10-27 | XMS | Encounter Summary ---
Demographics + + + | Address | [address] | | | [place] [address] | + + + | Home Phone [...] Team Providers + +------+ + | Care Fixed Wing Pilot Name | Role | Phone | + +------+ + PCP | Unavailable | + +------+ + Encounter Details +--------+ + + + + | Date | Type | Department | Care Team | Description | +--------+ + + + + | 10/09/ | [facility] | [facility] | Jonathan, | | | 2008 | Encounter | MED CTR EMERGENCY | Martell Cr MD [address] | | | | | CENTER [address] [place] | [place] [place] | | | | | [place] | [place] [address] | | | | | [address] | [phone] | | | | | [phone] | | | +--------+ + + + [...] W | | | | | | [place], | | | | | | [place] [address] | | | | | | [phone] | | | | | | | | +--------+ + + + + | 11/20/ | Implant | Cardiology | Daljit Singletary, | Remote Device | | 2019 | Monitor | | MD [place] | Interrogation | | | | | [place], | (Primary Dx); | | | | | [place] [address] | Presence of | | | | | [phone] | permanent cardiac | | | | [...]
--- OUTSIDE RECORDS SUMMARY | ~2019-10-27 | XMS | Encounter Summary ---
Demographics + + + | Address | [address] | | | [place] [address] | + + + | Home Phone [...] Team Providers + +------+ + | Care Sugarcane Planter Name | Role | Phone | + [...] 2015 | | CARDIOLOGY [address] | ACTING TEACHER [address] [place] | | | | | [place], | [place], [place] | | | | | [place] [address] | [address] | | | | | [phone] | | | +--------+--------+ + + + [...] | | | | | | [place], | | | | | | [place] [address] | | | | | | [phone] | | | | | | | | +--------+ + + + + | 11/20/ | Implant | Cardiology | Daljit Singletary, | Remote Device | | 2018 | Monitor | | [address] | Interrogation | | | | | [place], | (Primary Dx); | | | | | [place] [address] | Presence of | | | | | [phone] | permanent cardiac | | | | [...]
--- OUTSIDE RECORDS SUMMARY | ~2019-10-27 | XMS | Encounter Summary ---
Demographics + + + | Address | [address] | | | [place] [address] | + + + | Home Phone [...] Team Providers + +------+ + | Care Sawmill Hand Name | Role | Phone | [...] + + | 09/04/ | Telephone | [facility] | Emmanuel Daniel MD | Other | | 2019 | | GASTROENTEROLOGY | [address] [place], [place] | | | | | [address] [place] | [address] [place], [place] | | | | | [address] [place], [place] | [address] | | | | | [address] | | | | | | [phone] | | | +--------+ + + + [...] W | | | | | | [place], | | | | | | [place] [address] | | | | | | [phone] | | | | | | | | +--------+ + + + + | 11/20/ | Implant | Cardiology | Daljit Singletary, | Remote Device | | 2018 | Monitor | | MD [address] [place] | Interrogation | | | | | [place], | (Primary Dx); | | | | | [place] [address] | Presence of | | | | | [phone] | permanent cardiac | | | | [...]
--- OUTSIDE RECORDS SUMMARY | ~2019-10-27 | XMS | Encounter Summary ---
Demographics + + + | Address | [address] | | | [place] [address] | + + + | Home Phone [...] Providers + +------+ + | Care Automotive Instructor Name | Role | Phone | [...] | MED CTR EXTERNAL | MD [address] | | | | | IMAGING | Jay [place] | | | | | [phone] | [place] [address] | | +--------+ + + + + [...] W | | | | | | [place], | | | | | | [place] [address] | | | | | | [phone] | | | | | | | | +--------+ + + + + | 11/20/ | Implant | Cardiology | Daljit Singletary, | Remote Device | | 2018 | Monitor | | [facility] | Interrogation | | | | | [place], | (Primary Dx); | | | | | [place] [address] | Presence of | | | | | [phone] | permanent cardiac | | | | [...]
--- OUTSIDE RECORDS SUMMARY | ~2019-10-27 | XMS | Encounter Summary ---
Demographics + + + | Address | [address] | | | [place] [address] | + + + | Home Phone [...] Team Providers + +------+ + | Care Ground Support Equipment Fitter Name | Role | Phone | + +------+ + PCP | Unavailable | + +------+ + Encounter Details +--------+ + + + + | Date | Type | Department | Care Team | Description | +--------+ + + + + | 05/02/ | [facility] | [facility] | Jonathan, | | | 2009 | Encounter | MED CTR EMERGENCY | Martell Cr MD [address] | | | | | CENTER [address] | [place] | | | | | [place] | [place] [address] | | | | | [address] | [phone] | | | | | [phone] | | | +--------+ + + + [...] W | | | | | | [place], | | | | | | [place] [address] | | | | | | [phone] | | | | | | | | +--------+ + + + + | 11/20/ | Implant | Cardiology | Daljit Singletary, | Remote Device | | 2019 | Monitor | | MD [place] | Interrogation | | | | | [place], | (Primary Dx); | | | | | [place] [address] | Presence of | | | | | [phone] | permanent cardiac | | | | [...]
--- OUTSIDE RECORDS SUMMARY | ~2019-10-27 | XMS | Encounter Summary ---
Demographics + + + | Address | [address] | | | [place] [address] | + + + | Home Phone [...] Providers + +------+ + | Care Fuel Injection Servicer Name | Role | Phone | + +------+ + PCP | Unavailable | + +------+ + Encounter Details +--------+ + + + + | Date | Type | Department | Care Team | Description | +--------+ + + + + | 06/03/ | Hospital | [facility] | | | | 2008 | Encounter | MED CTR EMERGENCY | | | | | | [place] [address] | | | | | | [place] | | | | | | [address] | | | | | | [phone] | | | +--------+ + + + [...] | | | | | | [place] [address] | | | | | | [phone] | | | | | | | | +--------+ + + + + | 11/20/ | Implant | Cardiology | Daljit Singletary, | Remote Device | | 2018 | Monitor | | [facility] | Interrogation | | | | | [place], | (Primary Dx); | | | | | [place] [id number] | Presence of | | | | | [phone] | permanent cardiac | | | | [...]
--- OUTSIDE RECORDS SUMMARY | ~2019-10-27 | XMS | Encounter Summary ---
Demographics + + + | Address | [address] [place] [address] | | | [place] [address] | + + + | Home Phone | | + + + | Preferred Language | Unknown | + + + | Marital Status | | + + + | Temple Affiliation | Unknown | + + + | Race | White | + + + | Ethnic Group | Not or | + + + Author + + + | Organization | Unknown | + + + | Address | Unknown | + + + | Phone | Unavailable | + + + Support + + + + + | Name | Relationship | Address | Phone | + + + + + | Rachel Valencia | ECON | [place] | | | | | [address] | | + + + + + Care Team Providers + +------+ + | Care Ophthalmic Asst Name | Role | Phone | + +------+ + | Luoma, Darion DO | PCP | | + +------+ + Encounter Details +--------+--------+ + + + | Date | Type | Department | Care Team | Description | +--------+--------+ + + + | 09/28/ | Travel | | | | | 2018 | | | | | +--------+--------+ + + + Social History + +-------+ [...]
--- OUTSIDE RECORDS SUMMARY | ~2019-10-27 | XMS | Encounter Summary ---
Demographics + + + | Address | [address] | | | [place] [address] | + + + | Home Phone [...] Providers + +------+ + | Care Health Information Administrator Name | Role | Phone | [...] | aortic aneurysm | | | | [place], | [place], | ([facility]) (Primary Dx); | | | | [place] [address] | [place] [address] | Syncope, unspecified | | | | [phone] | [phone] | syncope type; | | | | | | Hypertension, | | | | | | unspecified type; | | | | | | Coronary artery | | | | | | disease involving | | | | | | douglas coronary | | | | | | artery of douglas | | | | | | heart [...] of non-critical coronary artery d isease involving douglas coronary artery of douglas heart without angina pectoris, essential h ypertension, [...] Preventative health care Coronary artery disease involving douglas coronary artery of douglas heart without angina pectoris Cannabis abuse, daily [...] by mouth Daily. 90 tabl et 1 [facility] Natural Products (OSTEO BI-FLEX/5-LOXIN [...] 3RD DOSE, CALL 911 100 tablet 3 Arma-3 Fatty Acids (SALMON OIL-1000 PO) CAPS, one capsule by mouth daily twice daily ONE TOUCH DELICA LANCETS [facility] Check glucose as needed for hypoglycemia 100 [...] now present Confirmed by HIREN WINKLER, ANGELA ([id number]) on 07/28/2018 6:03:35 AM LAB RESULTS reviewed during visit today primarily from [facility]: LIPID Lab Results Component Value [...] PLTEX 157 04/11/2018 I reviewed records from [facility] for emergency department visit o [...] to go back in 3 days to [place] for an attempt of ablation under general [...] He is in class II of the [place] [employer] f unctional class. There are [...] subsided. 2. Non-critical Coronary artery disease involving douglas coronary artery of douglas heart [facility] angina pectoris: A. Normal exercise sestamibi [...] be ruled out . D. [facility] 12/25/13, shows non critical coronary artery [...] a normal stable device function. Estimated remaining hbumika agosto longevity is 3.5 years. D. Device [...] this chart may have been created with clipkit voice recognition software. Occasi onal wrong-word or [...] W | | | | | | [place], | | | | | | [place] [address] | | | | | | [phone] | | | | | | | | +--------+ + + + + | 11/20/ | Implant | Cardiology | Daljit Singletary, | Remote Device | | 2018 | Monitor | | [address] [place] | Interrogation | | | | | [place], | (Primary Dx); | | | | | [place] [address] | Presence of | | | | | [phone] | permanent cardiac | | | | [...] + + | Coronary artery disease involving douglas coronary artery of douglas heart without | | angina pectoris | [...]
--- OUTSIDE RECORDS SUMMARY | ~2019-10-27 | XMS | Encounter Summary ---
Demographics + + + | Address | [address] [place] [address] | | | [place] [address] | + + + | Home Phone | | + + + | Preferred Language | Unknown | + + + | Marital Status | | + + + | Muslim Affiliation | Unknown | + + + | Race | White | + + + | Ethnic Group | Not or | + + + Author + + + | Author | [facility] | + + + | Organization | [facility] | + + + | Address | Unknown | + + + | Phone | Unavailable | + + + Support + + + + + | Name | Relationship | Address | Phone | + + + + + | Rachel Valencia | ELIEZER | [place] | | | | | [address] | | + + + + + Care Team Providers + +------+ + | Care Commodity Supervisor Name | Role | Phone | [...] | | | | | Unintentiona | [place], [place] | | | | | | l weight | [address] | | | | | | loss | Phone: | | | | | | Procedures | [phone] | | | | | | CONSULT TO | Fax: | | | | | | NON - IVETTE | [phone] | | | | | | PROVIDER [...] | | 2019 | | Center at [facility] [address] | MD [address] | normal, recommend | | | | [address] | [place], [place] | hyoscyamine) | | | | Mailcode: [place] | [address] | | | | | for Health and | [phone] | | | | | [facility] [address] | | | | | | [place], [place] | | | | | | [address] | | | | | | [phone] | | | +--------+ + + + [...]
--- OUTSIDE RECORDS SUMMARY | ~2019-10-27 | XMS | Encounter Summary ---
Demographics + + + | Address | [address] | | | [place] [address] | + + + | Home Phone [...] Providers + +------+ + | Care Framing Inspector Name | Role | Phone | + +------+ + PCP | Unavailable | + +------+ + Encounter Details +--------+ + + + + | Date | Type | Department | Care Team | Description | +--------+ + + + + | 09/24/ | [facility] | [facility] | Evan Gandara MD | | | 2005 | Encounter | MED CTR XRAY [address] | [address] [facility] | | | | | [place] | [place] | | | | | [place] [address] | [address] | | | | | [phone] | | | +--------+ + + + [...] | | | | | | [place] [address] | | | | | | [phone] | | | | | | | | +--------+ + + + + | 11/20/ | Implant | Cardiology | Daljit Singletary, | Remote Device | | 2018 | Monitor | | MD [place]iquis [place]ro | Interrogation | | | | | [place], | (Primary Dx); | | | | | [place] [address] | Presence of | | | | | [phone] | permanent cardiac | | | | [...]
--- OUTSIDE RECORDS SUMMARY | ~2019-10-27 | XMS | Encounter Summary ---
Demographics + + + | Address | [address] | | | [place] [address] | + + + | Home Phone [...] Providers + +------+ + | Care Chemical Lab Supervisor Name | Role | Phone | [...] Provider Unknown | | | | | [place], [place] | [phone] | | | | | [address] | | | | | | [phone] | | | +--------+ + + + [...] + + + +---------+ + + | [place]-3 Fatty | CAPS, one capsule by | [...] | | | | | | | #[id number], exp 07/2016 | | | | | [...] | | | | | | [place] [address] | | | | | | [phone] | | | | | | | | +--------+ + + + + | 11/20/ | Implant | Cardiology | Daljit Singletary, | Remote Device | | 2018 | Monitor | | MD [place] | Interrogation | | | | | [place], | (Primary Dx); | | | | | [place] [address] | Presence of | | | | | [phone] | permanent cardiac | | | | [...]
--- OUTSIDE RECORDS SUMMARY | ~2019-10-27 | XMS | Encounter Summary ---
Demographics + + + | Address | [address] | | | [place] [address] | + + + | Home Phone [...] Team Providers + +------+ + | Care Tool And Die Repair Name | Role | Phone | + [...] | disease involving | | | | [place], | [place], | [place] coronary | | | | [place] [address] | [place] [address] | artery of [place] | | | | [phone] | [phone] | heart without angina | | | [...] W | | | | | | [place], | | | | | | [place] [address] | | | | | | [phone] | | | | | | | | +--------+ + + + + | 11/20/ | Implant | Cardiology | Daljit Singletary, | Remote Device | | 2018 | Monitor | | [facility] | Interrogation | | | | | [place], | (Primary Dx); | | | | | [place] [address] | Presence of | | | | | [phone] | permanent cardiac | | | | [...] MD | | | | | | ([id number]) on 06/23/2016 | | | | | [...] + + | Coronary artery disease involving [place] coronary artery of [place] heart without | | angina pectoris - Primary | + + | Essential hypertension with goal blood pressure less than 130/80 | + + documented in this encounter"
--- OUTSIDE RECORDS SUMMARY | ~2019-10-27 | XMS | Encounter Summary ---
Demographics + + + | Address | [address] | | | [place] [address] | + + + | Home Phone [...] Team Providers + +------+ + | Care Cleaning Crew Member Name | Role | Phone | + [...] 2019 | | GASTROENTEROLOGY | [address] [place], [place] | | | | | [address] [place] | [address] [place], [place] | | | | | [address] [place], [place] | [address] | | | | | [address] | | | | | | [phone] | | | +--------+ + + + [...] W | | | | | | [place], | | | | | | [place] [address] | | | | | | [phone] | | | | | | | | +--------+ + + + + | 11/20/ | Implant | Cardiology | Daljit Singletary, | Remote Device | | 2019 | Monitor | | MD [address] [place] | Interrogation | | | | | [place], | (Primary Dx); | | | | | [place] [address] | Presence of | | | | | [phone] | permanent cardiac | | | | [...]
--- OUTSIDE RECORDS SUMMARY | ~2019-10-27 | XMS | Encounter Summary ---
Demographics + + + | Address | [address] | | | [place] [address] | + + + | Home Phone [...] Team Providers + +------+ + | Care Discharge Rn Name | Role | Phone | [...] + | 12/23/ | Telephone | [facility] | Silvia, | Lab Order (due for | | 2017 | | CARDIOLOGY [address] | Janeen, ADULT PROTECTIVE CASEWORKER [address] | fasting labs) | | | | [place], | [place], | | | | | [place] [address] | [place] [address] | | | | | [phone] | [phone] | | | | | | | [...] [place], | | | | | | [place] [address] | | | | | | [phone] | | | | | | | | +--------+ + + + + | 11/20/ | Implant | Cardiology | Daljit Singletary, | Remote Device | 2018 | Monitor | | [facility] | Interrogation | | | | | [place], | (Primary Dx); | | | | | [place] [address] | Presence of | | | | | [phone] | permanent cardiac | | | | [...]
--- OUTSIDE RECORDS SUMMARY | ~2019-10-27 | XMS | Encounter Summary ---
Demographics + + + | Address | [address] | | | [place] [address] | + + + | Home Phone [...] Team Providers + +------+ + | Care Human Resources Operations Specialist Name | Role | Phone | + +------+ + | Michael Amanda DO | PCP | | + +------+ + Reason for Visit + + + | Reason | Comments | + + + | Foot Pain | | + + + Encounter Details +--------+ + + + + | Date | Type | Department | Care Team | Description | +--------+ + + + + | 10/01/ | Telephone | [facility] [place] [facility] | [place] | Foot Pain | | 2014 | | CARE [address] | Guy Larkin MD | | | | | [place] | [address] | | | | | [address] | [place] | | | | | [phone] | [address] | | | | | | | [...] | | | | | | [place] [address] | | | | | | [phone] | | | | | | | | +--------+ + + + + | 11/20/ | Implant | Cardiology | Daljit Singletary, | Remote Device | | 2018 | Monitor | | MD Sim [facility] | Interrogation | | | | | [place], | (Primary Dx); | | | | | [place] [address] | Presence of | | | | | [phone] | permanent cardiac | | | | [...]
--- OUTSIDE RECORDS SUMMARY | ~2019-10-27 | XMS | Encounter Summary ---
Demographics + + + | Address | [address] | | | [place] [address] | + + + | Home Phone [...] + +------+ + | Care Front Desk Lead Name | Role | Phone | + +------+ + | Michael Amanda DO | PCP | | + +------+ + Encounter Details +--------+ + + + + | Date | Type | Department | Care Team | Description | +--------+ + + + + | 04/03/ | Hospital | [facility] | Jay Gambino MD | | | 2012 - | Encounter | [facility] | [address] | | | | | CARDIAC TRANSPLANT | [address] [place] | | | 04/04/ | | [address] | [place] [address] | | | 2012 | | [place] | [phone] | | | | | [address] | | | | | | [phone] | | | +--------+ + + + [...] documented as of this encounter Discharge Summaries Dona Clemente ARNP - 04/04/2013 9:05 AM PDT PATIENT NAME: MOE GAY Sex/Age: M / 53Y : 1960 ADMISSION DATE: 04/03/2013 DISCHARGE DATE: 04/04/2013 [id number] / [id number] ADMISSION DIAGNOSES: 1. Symptomatic premature ventricular contractions (PVC). A. Status post attempted ablation in January 2013, which was not tolerated and discontinued prior to completion of the procedure. B. Being admitted for planned repeat ablation. 2. History of symptomatic sinus bradycardia. A. Status post dual-chamber Medtronic permanent pacemaker in 2008. 3. Dyslipidemia. 4. History of thrombocytopenia. 5. Hypoglycemia. 6. Insomnia. 7. Chronic neck pain. A. On home narcotics. 8. History of depression and anxiety. 9. History of obstructive sleep apnea. 10. Bipolar disorder. 11. History of hepatitis B. DISCHARGE DIAGNOSES: 1. Symptomatic premature ventricular contractions. A. Status post electrophysiology study and premature ventricular contraction ablation. 2. History of symptomatic sinus bradycardia. A. Status post dual-chamber Medtronic permanent pacemaker in 2008. 3. Dyslipidemia. 4. History of thrombocytopenia. 5. Hypoglycemia. 6. Insomnia. 7. Chronic neck pain. A. On home narcotics. 8. History of depression and anxiety. 9. History of obstructive sleep apnea. 10. Bipolar disorder. 11. History of hepatitis B. HOSPITAL COURSE: Mr. Gay is a 53-year-old with symptomatic premature ventricular contra ctions (PVCs), originating in the right ventricular outflow tract. He underwent an electrop hysiology study and attempted ablation in January 2013, which was not fully completed seconda ry to the patient being unable to tolerate lying still. He has continued to have symptoms despite medical therapy. He is being admitted for repeat electrophysiology study and ablati on. MOE GAY ADM:04/03/13 [id number] 04/04/13 [place] DISCHARGE SUMMARY [id number] [facility] PARISA Hughes [facility] MD Meena Pleitez THIS REPORT IS CONFIDENTIAL AND NOT TO BE RELEASED WITHOUT PROPER AUTHORIZATION. [facility] Mr. Gay was taken to the cardiac catheterization lab on the day of admission. He underw ent a comprehensive electrophysiology study with three-dimensional mapping and successful P VC ablation. He tolerated the procedure well and was returned to telemetry post procedure. He remained in an atrial paced/ventricular sensed rhythm with no PVCs. He was mobilized. H e had no evidence of ecchymosis or hematoma at his access femoral access sites. PHYSICAL EXAMINATION: VITAL SIGNS: On the day of discharge, Mr. Gay had stable vital signs, including blood p ressure 127/80, pulse 60, respirations 18, temperature 97.8, and oxygen saturations of 93% on room air. GENERAL: On exam, he was alert and oriented. LUNGS: Clear to auscultation bilaterally. HEART: Heart tones were S1, S2, regular rate and rhythm with no murmur, rub or gallop. ABDOMEN: Soft and nontender with active bowel tones. EXTREMITIES: He had no evidence of peripheral edema with 2+ pulses. He had no evidence of hematomas at his access sites. He remained in an A paced/ventricular sensed rhythm with no evidence of PVCs. DISPOSITION: Mr. Gay was discharged home on the morning of April 04, 2013. PROCEDURES DONE IN THE HOSPITAL: Comprehensive electrophysiology study with coronary sinus catheter placement, three-dimensional anatomic mapping, Isuprel administration and success ful PVC ablation. Complete details regarding this procedure can be found in Dr. Jay allred's dictated procedure note. LABORATORY DATA: 1. Admission CBC included hemoglobin of 15.3, hematocrit 43.5, white blood cell count 4.5, and platelet count 141,000. 2. Admission BMP includes sodium 139, potassium 3.4, BUN 11 and creatinine 0.75. DISCHARGE MEDICATIONS: Mr. Gay was discharged home to resume his usual home medication including 1. vitamin C 1000 mg once daily. 2. Aspirin 81 mg a day. 3. Clonazepam 0.5 mg twice a day. 4. Diltiazem 180 mg once daily. MOE GAY ADM:04/03/13 [id number] 04/04/13 [place] DISCHARGE SUMMARY [id number] [facility] PARISA Hughes [facility] MD Meena Pleitez THIS REPORT IS CONFIDENTIAL AND NOT TO BE RELEASED WITHOUT PROPER AUTHORIZATION. [facility] 5. Docusate sodium 2 tablets once daily. 6. Marinol 10 mg twice daily. 7. Metoprolol succinate 200 mg once daily. 8. Oxycodone 10 mg 10 mg oral as needed. 9. Oxycodone 30 mg oral twice daily. 10. Pravastatin 40 mg at bedtime. 11. Promethazine 25 mg as needed. 12. Ranitidine 1 to 2 tablets once daily. 13. [place] oil 2 tablets twice daily. 14. Valacyclovir 500 mg once daily. There were no new medications or medication dosage changes at time of discharge. PLAN: 1. Mr. Gay will be discharged home on medications as noted above, including his usual m edications of diltiazem and metoprolol. 2. He will be seen and followed by Dr. Gambino on 16 at 9:00 a.m. at [facility], [address]. 3. He will contact our office earlier than scheduled appointment should he have any diffic ulty prior to that time. PARISA Hughes MD A P RICHIE/med #[id number] cc: MD Dona Pleitez ARNP Suwong Wongsuwan, MD Electronically Signed 04/12/13 1400 PARISA Hughes Electronically Signed 05/22/13 1245 Jay Gambino MD MOE GAY ADM:04/03/13 [id number] 04/04/13 [place] DISCHARGE SUMMARY [id number] [facility] PARISA Hughes [facility] Jay Gambino MD R THIS REPORT IS CONFIDENTIAL AND NOT TO BE RELEASED WITHOUT PROPER AUTHORIZATION.Electronica lly signed by Jael Brown at 05/22/2013 1:25 PM Dona Grossman ARNP - 04/04/2013 9:05 AM PDT PATIENT NAME: MOE GAY Sex/Age: M / 53Y : 1960 ADMISSION DATE: 04/03/2013 DISCHARGE DATE: 04/04/2013 [id number] / [id number] ADMISSION DIAGNOSES: 1. Symptomatic premature ventricular contractions (PVC). A. Status post attempted ablation in January 2013, which was not tolerated and discontinued prior to completion of the procedure. B. Being admitted for planned repeat ablation. 2. History of symptomatic sinus bradycardia. A. Status post dual-chamber Medtronic permanent pacemaker in 2008. 3. Dyslipidemia. 4. History of thrombocytopenia. 5. Hypoglycemia. 6. Insomnia. 7. Chronic neck pain. A. On home narcotics. 8. History of depression and anxiety. 9. History of obstructive sleep apnea. 10. Bipolar disorder. 11. History of hepatitis B. DISCHARGE DIAGNOSES: 1. Symptomatic premature ventricular contractions. A. Status post electrophysiology study and premature ventricular contraction ablation. 2. History of symptomatic sinus bradycardia. A. Status post dual-chamber Medtronic permanent pacemaker in 2008. 3. Dyslipidemia. 4. History of thrombocytopenia. 5. Hypoglycemia. 6. Insomnia. 7. Chronic neck pain. A. On home narcotics. 8. History of depression and anxiety. 9. History of obstructive sleep apnea. 10. Bipolar disorder. 11. History of hepatitis B. HOSPITAL COURSE: Mr. Gay is a 53-year-old with symptomatic premature ventricular contra ctions (PVCs), originating in the right ventricular outflow tract. He underwent an electrop hysiology study and attempted ablation in January 2013, which was not fully completed seconda ry to the patient being unable to tolerate lying still. He has continued to have symptoms despite medical therapy. He is being admitted for repeat electrophysiology study and ablati on. MOE GAY Jaimee ADM:04/03/13 [id number] 04/04/13 [place] DISCHARGE SUMMARY [id number] [facility] PARISA Hughes [facility] MD Meena Pleitez THIS REPORT IS CONFIDENTIAL AND NOT TO BE RELEASED WITHOUT PROPER AUTHORIZATION. [facility] Mr. Gay was taken to the cardiac catheterization lab on the day of admission. He underw ent a comprehensive electrophysiology study with three-dimensional mapping and successful P VC ablation. He tolerated the procedure well and was returned to telemetry post procedure. He remained in an atrial paced/ventricular sensed rhythm with no PVCs. He was mobilized. H e had no evidence of ecchymosis or hematoma at his access femoral access sites. PHYSICAL EXAMINATION: VITAL SIGNS: On the day of discharge, Mr. Gay had stable vital signs, including blood p ressure 127/80, pulse 60, respirations 18, temperature 97.8, and oxygen saturations of 93% on room air. GENERAL: On exam, he was alert and oriented. LUNGS: Clear to auscultation bilaterally. HEART: Heart tones were S1, S2, regular rate and rhythm with no murmur, rub or gallop. ABDOMEN: Soft and nontender with active bowel tones. EXTREMITIES: He had no evidence of peripheral edema with 2+ pulses. He had no evidence of hematomas at his access sites. He remained in an A paced/ventricular sensed rhythm with no evidence of PVCs. DISPOSITION: Mr. Gay was discharged home on the morning of April 04, 2013. PROCEDURES DONE IN THE HOSPITAL: Comprehensive electrophysiology study with coronary sinus catheter placement, three-dimensional anatomic mapping, Isuprel administration and success ful PVC ablation. Complete details regarding this procedure can be found in Dr. Jay allred's dictated procedure note. LABORATORY DATA: 1. Admission CBC included hemoglobin of 15.3, hematocrit 43.5, white blood cell count 4.5, and platelet count 141,000. 2. Admission BMP includes sodium 139, potassium 3.4, BUN 11 and creatinine 0.75. DISCHARGE MEDICATIONS: Mr. Gay was discharged home to resume his usual home medication including 1. vitamin C 1000 mg once daily. 2. Aspirin 81 mg a day. 3. Clonazepam 0.5 mg twice a day. 4. Diltiazem 180 mg once daily. MOE GAY ADM:04/03/13 [id number] 04/04/13 [place] DISCHARGE SUMMARY [id number] [facility] PARISA Hughes [facility] MD Meena Pleitez THIS REPORT IS CONFIDENTIAL AND NOT TO BE RELEASED WITHOUT PROPER AUTHORIZATION. [facility] 5. Docusate sodium 2 tablets once daily. 6. Marinol 10 mg twice daily. 7. Metoprolol succinate 200 mg once daily. 8. Oxycodone 10 mg 10 mg oral as needed. 9. Oxycodone 30 mg oral twice daily. 10. Pravastatin 40 mg at bedtime. 11. Promethazine 25 mg as needed. 12. Ranitidine 1 to 2 tablets once daily. 13. [place] oil 2 tablets twice daily. 14. Valacyclovir 500 mg once daily. There were no new medications or medication dosage changes at time of discharge. PLAN: 1. Mr. Gay will be discharged home on medications as noted above, including his usual m edications of diltiazem and metoprolol. 2. He will be seen and followed by Dr. Gambino on 16 at 9:00 a.m. at [facility], [address]. 3. He will contact our office earlier than scheduled appointment should he have any diffic ulty prior to that time. PARISA Hughes MD A P RICHIE/mde #[id number] cc: MD Dona Pleitez ARNP Suwong Wongsuwan, MD Electronically Signed 04/12/13 1400 PARISA Hughes MOE GAY ADM:04/03/13 [id number] 04/04/13 [place] DISCHARGE SUMMARY [id number] [facility] PARISA Hughes [place] [facility] MD Meena Pleitez THIS REPORT IS CONFIDENTIAL AND NOT TO BE RELEASED WITHOUT PROPER AUTHORIZATION.Electronic[employer] llvarsha signed by Jael Brown at 04/12/2013 2:01 PM PDTdocumented in this encounter Medications at [...] mg by mouth | | 0 | /18/20 | | | (BENADRYL) 25 MG | as needed. | | | 12 | | | capsule | | | | | | + + + +---------+ + + | Perkins-3 Fatty | CAPS, one capsule by | [...] | | | | | | [place] [id number] | | | | | | [phone] | | | | | | | | +--------+ + + + + | 11/20/ | Implant | Cardiology | Daljit Singletary, | Remote Device | | 2019 | Monitor | | [facility] | Interrogation | | | | | [place], | (Primary Dx); | | | | | [place] [id number] | Presence of | | | | | [phone] | permanent cardiac | | | | [...] | CBC NO DIFFERENTIAL | Routin | 04/03/2013 | | Results for this | | | e | 6:04 AM | | procedure are in the | | | | PDT | | results section. | + +--------+ + + + | BASIC METABOLIC | Routin | 04/03/2013 | | Results for this | | PANEL | e | 6:04 AM | | procedure are in the | | | | PDT | | results section. | + +--------+ + + + documented in this encounter Results Basic Metabolic Panel (04/03/2013 6:04 AM PDT) + + + + + + | Component | Value | Ref Range | Performed | Pathologist | | | | | At | Signature | + + + + + + | Na | 139 | 135 - 145 | [facility] | [...] + + + + | CO2 | 28 | 21 - 28 mmol/L | [facility] | | | | [facility] | | | | [facility] | | | | | | LABORATORY | | + + + + + + | Glucose | 94Comment: Citizen [place] | 65 - 99 mg/dL | [facility] [...] + + | BUN | 11 | 8 - 25 mg/dL | [facility] | [facility] | | | | | [facility] | | | | | [facility] | | | | | | LABORATORY | | + + + + + + | Creatinine | 0.75Comment: IDMS | 0.70 - 1.30 | [facility] | | | | traceable creatinine | mg/dL | [facility] | | | | | | [facility] | | | | | | [facility] | | | | | | [facility] | | | | | | LABORATORY | | + + + + + + | Calcium | 9.2 | 8.5 - 10.2 | [facility] | | | | | mg/dL | [facility] | | | | | | [facility] | | | | | | [facility] | | | | | | [facility] | | | | | | LABORATORY | | + + + + + + | Anion Gap | 6 | 5 - 16 mmol/L | [facility] [...] | | | | failure.For | | [place] | | | | Americans, multiply the [...] + + + + + | [facility] | [address] | [place] [address] | | | [facility] | | | | | LABORATORY | | | | + + + + + CBC no Differential (04/03/2013 6:04 AM PDT) + +---------+ + + + | Component | Value | Ref Range | Performed | Pathologist | | | | | At | Signature | + +---------+ + + + | WBC | 4.5 | 3.8 - 11.0 K/uL | [facility] | | | [facility] | [facility] | | | | | | [facility] | | | | | | [facility] | | | | | | LABORATORY | | + +---------+ + + + | RBC | 4.62 | 4.20 - 5.70 | [facility] | | | | | M/uL | [facility] | | | | | | [facility] | | | | | | [facility] | | | | | | [facility]ENTER | | | | | | LABORATORY | | + +---------+ + + + | Hemoglobin | 15.3 | 13.2 - 17.0 | [facility] | | | | | g/dL | [facility] | | | | | | [facility] | | | | | | [facility] | | | | | | [facility] | | | | | | LABORATORY | | + +---------+ + + + | Hematocrit | 43.5 | 39.0 - 50.0 % | [facility] | | | | [facility] | [facility] | | | [facility] | | | | | | [facility] | | | | | | [facility] | | | | | | LABORATORY | | + +---------+ + + + | MCV | 94.2 | 80.0 - 100.0 fL | [facility] | | | | [facility] | [facility] | | | | | | [facility] | | | | | | [facility] | | | | | | LABORATORY | | + +---------+ + + + | MCH | 33.1 | 27.0 - 34.0 pg | [facility] | | | | | [facility] | [facility] | | | | | | [facility] | | | | | | [facility] | | | | | | LABORATORY | | + +---------+ + + + | MCHC | 35.1 | 32.0 - 35.5 | [facility] | | | | | g/dL | [facility] | | | | | | [facility] | | | | | | [facility] | | | | | | [facility]ENTER | | | | | | LABORATORY | | + +---------+ + + + | RDW-CV | 12.4 | 11.0 - 15.5 % | [facility] | | [facility] | [facility] | [facility] | | | | | | [facility] | | | | | | [facility] | | | | | | LABORATORY | | + +---------+ + + + | Platelet | 141 (L) | 150 - 400 K/uL | [...] + + | [facility] | [address] | [place] [address] | | | [facility] | | | | | LABORATORY | | | | + + + + + documented in this encounter Visit Diagnoses Not on filedocumented in this encounter"
--- OUTSIDE RECORDS SUMMARY | ~2019-10-27 | XMS | Encounter Summary ---
Demographics + + + | Address | [address] | | | [place] [address] | + + + | Home Phone [...] Team Providers + +------+ + | Care Soils Technician Name | Role | Phone | + +------+ + | Kirk French MD | PCP | | + +------+ + Reason for Referral Diagnostic/Screening (Routine) + +--------+ + + + + | Status | Reason | Specialty | Diagnoses / | Referred By | Referred To | | | | | Procedures | Contact | Contact | + +--------+ + + + + | Authorized | | Radiology | Diagnoses | | [address] | | | | | Ascending | Shanique Vegaar | | | | | aortic | Janeen, DESIGN TRANSFERRER | [place], | | | | | aneurysm | [address] | [place] [address] | | | | | (HCC) | [place] | Phone: | | | | | Abdominal | [place], | [phone] | | | | | aortic | [place] | Fax: | | | | | aneurysm | [address] | [phone] | | | | | (AAA) | Phone: | | | | | | without | [phone] | | | | | | rupture | Fax: | | | | | | (HCC) | [phone] | | | | | | Procedures | | | | | | | CT Angiogram | | | | | | | Chest | | | | | | | Abdomen | | | | | | | Pelvis | | | + +--------+ + + + + Reason for Visit + + + | Reason | Comments | + + + | Follow-up | ER | + + + | Congestive Heart | | | Failure | | + + + | Hypertension | | + + + Evaluate & [...] | | unspecified | MD Martell | [address] [place] [address] | | | | | type ER | [address] | [address] | | | | | FUP | [place] | [place], | | | | | Procedures | [place], [place] | [place] [address] | | | | | FUP - SUW & | [address] | Phone: | | | | | MISHA PT, LAST | Phone: | [phone] | | | | | SEEN | [phone] | Fax: | | | | | 08-24-18 | Fax: | [phone] | | | | | | [phone] | | +--------+ + + + + + Encounter Details +--------+---------+ + + + | Date | Type | Department | Care Team | Description | +--------+---------+ + + + | 01/11/ | Office | [facility] | Silvia, | Coronary artery | | 2019 | Visit | CARDIOLOGY [address] | [place]ISA [place] [address] | disease involving | | | | [place], | [place], | [place] coronary | | | | [place] [address] | [place] [address] | artery of [place] | | | | [phone] | [phone] | heart without angina | | | | | | pectoris (Primary | | | | | | Dx); Essential | | | | | | hypertension; | | | | | | Symptomatic PVCs; | | | | | | Ascending thoracic | | | | | | aortic aneurysm | | | | | | (HCC); Abdominal | | | | | | aortic aneurysm | | | | | | (AAA) without | | | | | | rupture (HCC) | +--------+---------+ + + + Social [...] + + + | Blood Pressure | 116/70 | 01/11/2019 12:57 PM | | | | | PST | | + + + + + | Pulse | 92 | 01/11/2019 12:57 PM | | | | | PST | | + + + + + | Temperature | - | - | | + + + + + | Respiratory Rate | 18 | 01/11/2019 12:57 PM | | | | | PST | | + + + + + | Oxygen Saturation | - | - | | + + + + + | Inhaled Oxygen | - | - | | | Concentration | | | | + + + + + | Weight | 110.2 kg (242 lb | 01/11/2019 12:57 PM | | | | 15.2 oz) | PST | | + + + + + | Height | 193 cm (6' 4") | 01/11/2019 12:57 PM | | | | | PST | | + + + + + | Body Mass Index | 29.57 | 01/11/2019 12:57 PM | | | | | [...] of this encounter Patient Instructions Patient Instructions Christine Rodriguez, Machine Whitener - 01/11/2019 12:45 PM PST 1. You will monitor your chest pain and you will make it on the calendar and if its been paulino ppening more then once a week then you need to call the office. Blood test: Fasting- 12 hours prior to test, no food, no caffiene, water is ok Date Due: soon Where to go for labs: Lab of your choice, please see lab orders, take them with you to the lab. INSTRUCTIONS Moe Sanchez 1960 Procedure: Left heart catheterization Day: Date: Check-in time: 1. Check in at the [facility]. 2. Do not eat or drink anything after midnight prior to the procedure. 3. Take all of your regular medications including Aspirin with a sip of water the morning o f the procedure 4. The procedure lasts approximately one hour, and you will have conscious sedation for the procedure which will help decrease pain and will make you groggy. 5. After the procedure you will remain either in recovery or same day surgery center for at least 2 hours, part of this time you may have to lie flat depending on the procedure. 6. Make sure you have a auto transport driver to take you home. Your auto transport driver will also need to sign you ou t, to take responsibility for you, so it can not be a taxi or transportation system, unless there is a caregiver with transportation. 7. Please call us with any questions or concerns at . If you need to cancel the procedure at the last minute, such as due to illness, and you are calling after regular office hours, call the main hospital line at and ask for nursing delivery department supervisor t o let them know you are cancelling . Blood test: Non-fasting Date Due: same day as CTA Where to go for labs: [facility]- [address] [facility] CTA of Chest and Abdomen: Date: Check-In Time: Where to Check In: Follow up appointment in Cardiology: 4-6 weeks Provider: PARISA Lomas Date: Check-in time: documented in this encounter Progress Notes Janeen Vega ARNP - 01/11/2019 12:45 PM PSTFormatting of this note might be differen t from the original. PATIENT NAME: Moe Sanchez : 1960: AGE: 58 y.o. PRIMARY CARE: Kirk French MD OUTPATIENT FOLLOW UP VISIT Date of Service: 01/11/2019 HISTORY OF PRESENT ILLNESS: Moe Sanchez is a 58 y.o. male with a history of non-critical coronary artery d isease involving [place] coronary artery of [place] heart without angina pectoris, essential h ypertension, [...] Preventative health care Coronary artery disease involving [place] coronary artery of [place] heart without angina pectoris Cannabis abuse, daily [...] 3RD DOSE, CALL 911 100 tablet 3 [place]-3 Fatty Acids (SALMON OIL-1000 PO) CAPS, one capsule by mouth daily twice daily ondansetron (ZOFRAN ODT) 4 mg disintegrating tablet Take 4 mg by mouth. ONE TOUCH DELICA LANCETS [facility] [...] was found Confirmed by ANGELA MARADIAGA MD ([id number]) on 01/03/2019 8:10:39 PM LAB RESULTS reviewed during visit today primarily from [facility]: LIPID Lab Results Component Value [...] the HPI. RESULTS- I reviewed reports from [facility]: Xr Chest Ap Portable Result Date: 01/02/2019 [...] ASSESSMENT: 1. Non-critical Coronary artery disease involving [place] coronary artery of [place] heart wi out angina pectoris: A. Normal exercise sestamibi stress [...] Symptoms with moderate exertion of t he [place] 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 Heart failure stage [...] ventricular arrhythmia performed by Dr. Gambino at [facility] on 01/30/2013. Patient had spontaneous [...] go back in 3 days t o [place] for an attempt of ablation under general [...] he has any further problems Christine Clemente Machine Whitener am acting as a scribe on behalf of, and in the pres ence of PARISA Lomas. - Reji Newman 01/11/2019 13:46 IJaneen ARNP, personally performed the services described in this documentati on, as scribed in my presence and it is both accurate and complete. -PARISA Lomas 01/11/2019 Portions of this chart may have been created with [employer] voice recognition software. Occasi onal wrong-word or [...] | | | | | | [place] [address] | | | | | | [phone] | | | | | | | | +--------+ + + + + | 11/20/ | Implant | Cardiology | Daljit Singletary, | Remote Device | 2018 | Monitor | | [facility] | Interrogation | | | | | [place], | (Primary Dx); | | | | | [place] [address] | Presence of | | | | | [phone] | permanent cardiac | | | | [...] | | + +---------+--------+ + + | CT Angiogram Chest | Imaging | Routin | Ascending thoracic | Expected: | | Abdomen Pelvis | | e | aortic aneurysm | 01/12/2019, Expires: | | | | | (HCC) Abdominal | 01/12/2020 | | | | | aortic aneurysm | | | | | | (AAA) without | | | | | | rupture (HCC) | | + +---------+--------+ + + | Basic Metabolic | Lab | STAT | Ascending thoracic | Expected: | | Panel | | | aortic aneurysm | 01/12/2019, Expires: | | | | | (HCC) Abdominal | 01/12/2020 | | | | | aortic aneurysm | | | | | | (AAA) without | | | | | | rupture (HCC) | | + +---------+--------+ + + documented as of this encounter Visit Diagnoses + + | Diagnosis | + + | Coronary artery disease involving [place] coronary artery of [place] heart without | | angina pectoris - Primary | + + | Essential hypertension Unspecified essential hypertension | + + | Symptomatic PVCs Other premature beats | + + | Ascending thoracic aortic aneurysm (HCC) Thoracic aneurysm without mention of rupture | + + | Abdominal aortic aneurysm (AAA) without rupture (HCC) | + + documented in this encounter
--- OUTSIDE RECORDS SUMMARY | ~2019-10-27 | XMS | Encounter Summary ---
Demographics + + + | Address | [address] | | | [place] [address] | + + + | Home Phone [...] Providers + +------+ + | Care Steel Erector Name | Role | Phone | [...] 2019 | | GASTROENTEROLOGY | [address], [place] | | | | | [address] [place] | [address] [place], [place] | | | | | [address] [place], [place] | [address] | | | | | [address] | | | | | | [phone] | | | +--------+ + + + [...] | | | | | [place], | | | | | | [place] [address] | | | | | | [phone] | | | | | | | | +--------+ + + + + | 11/20/ | Implant | Cardiology | Dalijt Singletary, | Remote Device | | 2019 | Monitor | | [address] | Interrogation | | | | | [place], | (Primary Dx); | | | | | [place] [address] | Presence of | | | | | [phone] | permanent cardiac | | | | [...]
--- OUTSIDE RECORDS SUMMARY | ~2019-10-27 | XMS | Encounter Summary ---
Demographics + + + | Address | [address] | | | [place] [address] | + + + | Home Phone [...] Team Providers + +------+ + | Care Product Test Specialist Name | Role | Phone | [...] + + | 12/14/ | Telephone | [facility] | Emmanuel Daniel MD | Follow-up, Office | | 2019 | | GASTROENTEROLOGY | [address] [place], [place] | Visit (wants to | | | | [address] [place] | [address] [place] | cancel his office | | | | [address] [place] | [address] | appointment today) | | | | [address] | | | | | | [phone] | | | +--------+ + + + [...] | | | | | | [place] [address] | | | | | | [phone] | | | | | | | | +--------+ + + + + | 11/20/ | Implant | Cardiology | Daljit Singletary, | Remote Device | | 2019 | Monitor | | [address] [facility] | Interrogation | | | | | [address] [place], | (Primary Dx); | | | | | [place] [address] | Presence of | | | | | [phone] | permanent cardiac | | | | [...]
--- OUTSIDE RECORDS SUMMARY | ~2019-10-27 | XMS | Encounter Summary ---
Demographics + + + | Address | [address] | | | [place] [address] | + + + | Home Phone [...] Providers + +------+ + | Care Maintenance Custodian Name | Role | Phone | + [...] + + | 08/04/ | Telephone | [facility] | [place], | Other (4 week event | | 2017 | | CARDIOLOGY [address] | PARISA [place] [address] | monitor ) | | | | [place], | [place], | | | | | [place] [address] | [place] [address] | | | | | [phone] | [phone] | | | | | | | [...] W | | | | | | [place], | | | | | | [place] [address] | | | | | | [phone] | | | | | | | | +--------+ + + + + | 11/20/ | Implant | Cardiology | Daljit Singletary, | Remote Device | | 2018 | Monitor | | [address] [place] | Interrogation | | | | | [place], | (Primary Dx); | | | | | [place] [address] | Presence of | | | | | [phone] | permanent cardiac | | | | [...]
--- OUTSIDE RECORDS SUMMARY | ~2019-10-27 | XMS | Encounter Summary ---
Demographics + + + | Address | [address] | | | [place] [address] | + + + | Home Phone [...] Team Providers + +------+ + | Care Wallpaper Printer Helper Name | Role | Phone | [...] 2019 | | GASTROENTEROLOGY | [address], [place] | | | | | [address] [place] | [address] [place], [place] | | | | | [address] [place], [place] | [address] | | | | | [address] | | | | | | [phone] | | | +--------+ + + + [...] W | | | | | | [place], | | | | | | [place] [address] | | | | | | [phone] | | | | | | | | +--------+ + + + + | 11/20/ | Implant | Cardiology | Daljit Singletary, | Remote Device | | 2019 | Monitor | | [address] | Interrogation | | | | | [place], | (Primary Dx); | | | | | [place] [address] | Presence of | | | | | [phone] | permanent cardiac | | | | [...]
--- OUTSIDE RECORDS SUMMARY | ~2019-10-27 | XMS | Encounter Summary ---
Demographics + + + | Address | [address] | | | [place] [address] | + + + | Home Phone [...] Providers + +------+ + | Care Production Inspector Name | Role | Phone | [...] Description | +--------+---------+ + + + | 06/26/ | Office | [facility] | MccormickJacek, | Diplopia (Primary | | 2012 | Visit | [facility] | [address] | Dx); Symptomatic | | | | [address] | [place] | PVCs; Hypertension | | | | [place], [place] | [address] | | | | | [address] | | | | | | [phone] | | | +--------+---------+ + + + [...] + + + | Blood Pressure | 146/104 | 06/26/2013 1:50 PM | | | | | PDT | | + + + + + | Pulse | 80 | 06/26/2013 1:50 PM | | | | | PDT | | + + + + + | Temperature | 36.3 C (97.3 F) | 06/26/2013 1:50 PM | | | | | PDT | | + + + + + | Respiratory Rate | 16 | 06/26/2013 1:50 PM | | | | | PDT | | + + + + + | Oxygen Saturation | - | - | | + + + + + | Inhaled Oxygen | - | - | | | Concentration | | | | + + + + + | Weight | 115.2 kg (253 lb | 06/26/2013 1:50 PM | | | | 14.4 oz) | PDT | | + + + + + | Height | - | - | | + + + + + | Body Mass Index | 30.91 | 04/24/2013 9:50 AM | | | | | PDT | | + + + + + documented in this encounter Patient Instructions Patient Instructions Jacek Holm MD - 06/26/2013 2:24 PM PDTBP 146/104 | Pulse 80 | Temp 36.3 C (97.3 F) (Temporal) | Resp 16 | Wt 115.168 kg (253 lb 14.4 oz) DOUBLE VISION Double Vision means that you are seeing one object as two. There are many causes for this c ondition including: Disease inside the eye Problem with the muscles and nerves that control the movement of the eye Injury to the eye or bones around the eye Disease in the brain Other causes Further testing is needed to determine the cause of your double vision. Because a serious d isease may be present, it is important that you follow up as directed. HOME CARE: 1) Double vision will affect your ability to machining technician distance. This means it will be harder t o drive. Do not drive until the problem is corrected. 2) If you were given a removable eye patch, wear it while awake. You may remove it at night to sleep. FOLLOW UP with your doctor or as advised by our staff. GET PROMPT MEDICAL ATTENTION if any of the following occur: -- Redness, rash or swelling around the eye -- Sinus or facial pain -- Severe headache, drowsiness or confusion -- Vertigo (spinning sensation) -- Weakness in the muscles of the face, arms or legs; or, difficulty with vision, speech or walking [address] [place] [address]. All rights reserve d. This information is not intended as a substitute for professional medical care. Always fo llow your healthcare professional's instructions. documented in this encounter Progress Notes Jacek Holm MD - 06/26/2013 2:07 PM PDTFormatting of this note might be different fr om the original. Subjective: Patient ID: Moe Sanchez is a 53 y.o. male here for double vision. HPI While driving home from his pain clinic visit in the [facility] on Wednesday or he developed double vision (described as objects appearing side by side). The double vision w as not severe enough to prevent him from driving. Once back home the double vision resolved . He does not know if the problem occurs with one eye closed. He thought maybe it was due to the heat and being tired (he was very tired that day). That is the first and only time t hat he has had double vision. He was evaluated by Dr Cottonwood and had a normal eye exam, nor mal visual penaloza, no ocular pathology, vision 20/20 bilaterally. States he was told to " e his doctor immediately." When asked why he no-showed on Wednesday with me, he thinks maybe sandra rodarte overslept. No fever, eye pain, vision loss, facial droop, AMS, muscle weakness, severe he adache (he does have chronic "spinal headaches" which are unchanged). He denies new medicat ions. No drug or alcohol use. He takes marinol 10 mg nightly to help sleep, oxycodone 30 m g BID, oxycodone 10 mg up to QID prn, valium 1 mg a couple times per day. He states his blood pressure has been fine at home and at other specialty clinic visits. Sandra rodarte does need a refill of diltiazem, he has been out for 2 days. He states he has appointment with Dr Gambino next week. 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 HTN (hypertension) Bipolar 1 disorder Insomnia Chronic neck pain Depression Hyperlipidemia Anxiety depression Tobacco user Hypertension Nondependent opioid abuse in remission CAD Fibromyalgia Lumbago Chronic pain syndrome Thrombocytopenia 08/26/2010 Fatigue 09/15/2010 Abdominal pain, unspecified site 07/17/2011 Obstructive sleep apnea 08/26/2010 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 CENTRAL SLEEP APNEA CONDS CLASSIFIED ELSEWHERE 12/15/2010 Ulcerative colitis SINUS BRADYCARDIA HEPATITIS B PUD FATTY LIVER DISEASE Current Outpatient Prescriptions on File Prior to Visit Medication Sig Dispense Refill Ascorbic Acid (VITAMIN [...] for symptomatic hypoglycemia prn 30 each 2 MELATONIN TABS, at bedtime as needed metoprolol succinate (TOPROL-XL) 200 MG 24 hr tablet Take 1 tablet by mouth Daily. 30 tablet 6 [place]-3 Fatty Acids (SALMON OIL-1000 PO) CAPS, one capsule by mouth daily twice daily oxyCODONE (ROXICODONE) 30 MG Take 30 mg by mouth BID oxyCODONE 10 MG TABS Take 5-10 mg by mouth every 6 hours as needed. pravastatin (PRAVACHOL) 40 MG [...] for 3 days, then once daily thereafter. Review of Systems See HPI BP 146/104 | Pulse 80 | Temp 36.3 C (97.3 F) (Temporal) | Resp 16 | Wt 115.168 kg (253 lb 14.4 oz) Objective: Physical Exam Constitutional: He is oriented to person, place, and time. He appears well-developed and we ll-nourished. No distress. Eyes: Conjunctivae normal and EOM are normal. Pupils are equal, round, and reactive to ligh t. Right eye exhibits no discharge. Left eye exhibits no discharge. No scleral icterus. No nystagmus Neurological: He is alert and oriented to person, place, and time. No cranial nerve deficit . CN II-XII intact. Assessment: Moe was seen today for eye problem. Diagnoses and associated orders for this visit: Diplopia: Resolved. Possibly medication side effect. Possible viral CN palsy. Reassurin g that symptoms resolved, normal neurologic exam, and normal eye exam with Dr Courtney - his note was reviewed and sent for scanning - Educated on risk associated with marinol, BZD, and narcotics which are prescribed by Pain Clinic. - TSH; Future - Sedimentation Rate; Future - C-Reactive Protein; Future Symptomatic pvcs and HTN: He is s/p PVC ablation under general anesthesia with Dr Gambino . I advised him that he has refills of diltiazem. He then checked his bag and discovered t hat indeed he is NOT out of diltiazem and just hasn't been taking it. - FU with Dr Gambino as scheduled. Juanito Holm MD raik, AMEYA Solorzano - 06/26/2013 1:54 PM PDTPatient is here for a follow-up on his right eye problem.Rob senthilsamirvarsha signed by Kyra Salas LPN at 06/26/2013 2:43 PM PDTdocumented in this encounter Plan of [...] | | | | | | [place] [address] | | | | | | [phone] | | | | | | | | +--------+ + + + + | 11/20/ | Implant | Cardiology | Daljit Singletary, | Remote Device | | 2018 | Monitor | | MD [address] | Interrogation | | | | | [place], | (Primary Dx); | | | | | [place] [address] | Presence of | | | | | [phone] | permanent cardiac | | | | | | pacemaker; | | | | | | Sinoatrial node | | | | | | dysfunction (HCC) | | | | | | with symptomatic | | | | | | bradycardia | +--------+ + + + + documented as of this encounter Results C-Reactive Protein (06/26/2013 3:07 PM PDT) + [...] + | [facility] | [address] | [place] | [phone] | | [facility] | | [address] | | | - LABORATORY | | | | + + + + + | [facility] | [address] | [place] | | | [facility] | | [address] | | | - LABORATORY | | | | + + + + + Sedimentation Rate (06/26/2013 3:07 PM PDT) + +-------+ + + + | Component | Value | Ref Range | Performed | Pathologist | | | | | At | Signature | + +-------+ + + + | ESR | 4 | 0 - 20 mm/hr | [facility] | | | | [...] + | [facility] | [address] | [place] | [phone] | | [facility] | | [address] | | | - LABORATORY | | | | + + + + + | [facility] | [address] | [place] | | | [facility] | | [address] | | | - LABORATORY | | [...] | [facility] | | | | [employer] [facility] | | MEDICAL | | | [...] [address] | [place] | [phone] | | [facility] | | [address] | | | - LABORATORY | | | | + + + + + | [facility] | [address] | [place], [place] | | | [facility] | | [address] | | | - LABORATORY | | | | + + + + + documented in this encounter Visit Diagnoses + + | Diagnosis | + + | Diplopia - Primary | + + | Symptomatic PVCs Other premature beats | + + | Hypertension Unspecified essential hypertension | + + documented in this encounter
--- OUTSIDE RECORDS SUMMARY | ~2019-10-27 | XMS | Encounter Summary ---
Demographics + + + | Address | [address] | | | [place] [address] | + + + | Home Phone [...] Providers + +------+ + | Care Media Supervisor Name | Role | Phone | [...] 10/24/ | Refill | [facility] | Michael Amanda, | Medication Refill | | 2013 | | [facility] [place] | DO [address] | | | | | [address] | [place] | | | | | [place] | [address] | | | | | [address] | | | | | | [phone] | | | +--------+--------+ + + + [...] W | | | | | | [place], | | | | | | [place] [address] | | | | | | [phone] | | | | | | | | +--------+ + + + + | 11/20/ | Implant | Cardiology | Daljit Singletary, | Remote Device | | 2018 | Monitor | | [address] [facility] | Interrogation | | | | | [place], | (Primary Dx); | | | | | [place] [address] | Presence of | | | | | [phone] | permanent cardiac | | | | [...]
--- OUTSIDE RECORDS SUMMARY | ~2019-10-27 | XMS | Encounter Summary ---
Demographics + + + | Address | [address] | | | [place] [address] | + + + | Home Phone [...] Team Providers + +------+ + | Care Skiver Machine Name | Role | Phone | [...] | | Incontinence | [address] [place] | [place], | | | | | | [place] | [place] [address] | | | | | | [address] | Phone: | | | | | | Phone: | [phone] | | | | | | [phone] | Fax: | | | | | | Fax: | [phone] | | | | | | [phone] | | +--------+ + + + + + Encounter Details +--------+---------+ + + + | Date | Type | Department | Care Team | Description | +--------+---------+ + + + | 12/04/ | Office | [facility] | Miguel Rock, | Nocturnal and | | 2014 | Visit | [address] | MD [address] | diurnal enuresis | | | | [place], [place] | [place], [place] | (Primary Dx); BPH | | | | [address] | [address] | with | | | | [phone] | | obstruction/lower | | | | [...] Haleigh rodarte states that the surgeon in [place] who performed his neck surgery is no longer practicing a nd was apparently disciplined and had his license revoked by the [facility]. He has ed marijuana for his chronic pain. He [...] APNEA CONDS CLASSIFIED ELSEWHERE (12/15/2010); Ulcerative colitis ([facility]); Ches t pain; SINUS BRADYCARDIA; HEPATITIS B; PUD; FATTY LIVER DISEASE; SUBSTANCE ABUSE, MULTIPLE; Preventative health care (06/26/2013); Bladder troubles; Tuberculosis; Anginal pain ([facility]); St roke ([facility]); Prostate troubles; and Neurological disorder. Past [...] needed for Chest pain. 25 tablet 12 [place]-3 Fatty Acids (SALMON OIL-1000 PO) CAPS, one capsule by mouth daily twice daily ONE TOUCH DELICA LANCETS [facility] Check glucose as [...] with PCP regarding positive review of syste AUA BPH SYMPTOM SCORE Not at all [...] Date/Time: 04/22/2012 16:56 Transcribed Date/Time: 04/22/2012 17:32 Commercial Hvac Service Technician: <Electronically Signed by Jama Solis MD> 04/23/[address] MYELOGRAM LUMBAR SPINE, 04/22/2012 CLINICAL HISTORY: CHRONIC BACK PAIN. HISTORY OF L5-S1 FUSION. TECHNIQUE: Axial images are obtained from T12 to S2. These are reviewed in sagittal, axial and rodrgíuez l reformations. COMPARISON: Cervical and thoracic CT [...] Date/Time: 04/23/2012 10:54 Transcribed Date/Time: 04/23/2012 11:06 Commercial Hvac Service Technician: <Electronically Signed by Jama Solis MD> 04/24/12 5337 IMPRESSION: 1. Nocturnal and diurnal enuresis. I [...] bladder, still believe that the recommendations from [facility] neurosurgeon, Dr. Demarco, on 03/13/2014 would still [...] have not thoroughly proofread this note, and director of online education erro rs may occur. CC: Kirk French [...] | | | | | | [place] [address] | | | | | | [phone] | | | | | | | | +--------+ + + + + | 11/20/ | Implant | Cardiology | Daljit Singletary, | Remote Device | | 2019 | Monitor | | [address] [facility] | Interrogation | | | | | [place], | (Primary Dx); | | | | | [place] [address] | Presence of | | | | | [phone] | permanent cardiac | | | | [...] 1.001 - 1.030 | | | | Silver, | | | | | | UA, [...] + + + + + + | Ictotest | | Negative | | | + + + + [...] | + + | Randa Melo - 12/04/2014 12:00 AM PST | + [...]
--- OUTSIDE RECORDS SUMMARY | ~2019-10-27 | XMS | Encounter Summary ---
Demographics + + + | Address | [address] | | | [place] [address] | + + + | Home Phone [...] Team Providers + +------+ + | Care Bean Picker Machine Operator Name | Role | Phone | + +------+ + | Kirk French MD | PCP | | + +------+ + Encounter Details +--------+ + + + + | Date | Type | Department | Care Team | Description | +--------+ + + + + | 10/25/ | Hospital | [facility] | Kirk French | Aneurysm (HCC) | | 2017 | Encounter | MED CTR ULTRASOUND | D, MD [address] | | | | | [address] [place] | [address] | | | | | [place], [place] | [place] [address] | | | | | [address] | [phone] | | | | | [phone] | | | | | | | [...] + + + +---------+ + + | [place]-3 Fatty | CAPS, one capsule by | [...] | | | | | | [place] [address] | | | | | | [phone] | | | | | | | | +--------+ + + + + | 11/20/ | Implant | Cardiology | Daljit Singletary, | Remote Device | | 2019 | Monitor | | [address] [facility] | Interrogation | | | | | [place], | (Primary Dx); | | | | | [place] [address] | Presence of | | | | | [phone] | permanent cardiac | | | | [...]
--- OUTSIDE RECORDS SUMMARY | ~2019-10-27 | XMS | Encounter Summary ---
Demographics + + + | Address | [address] | | | [place] [address] | + + + | Home Phone [...] Author | [facility] | | | and [...] Team Providers + +------+ + | Care At Risk Paraprofessional Name | Role | Phone | + [...] [address] | | | | | [place], | [place], | | | | | [place] [address] | [place] [address] | | | | | [phone] | | | | | | | [...] W | | | | | | [place], | | | | | | [place] [address] | | | | | | [phone] | | | | | | | | +--------+ + + + + | 11/20/ | Implant | Cardiology | Daljit Singletary, | Remote Device | | 2018 | Monitor | | [address] [place] | Interrogation | | | | | [place], | (Primary Dx); | | | | | [place] [address] | Presence of | | | | | [phone] | permanent cardiac | | | | [...] Agency Comment | + + | [facility] | + + + +---------+ [...] Resulting Agency Comment | + + | [facility] | + + + +---------+ + + [...] Agency Comment | + + | [facility] | + + + +---------+ [...] Resulting Agency Comment | + + | [facility] | + + + +---------+ + + [...] Resulting Agency Comment | + + | [facility] | + + + +---------+ + + [...] Resulting Agency Comment | + + | [facility] | + + + +---------+ + + [...] Resulting Agency Comment | + + | [facility] | + + + +---------+ + + [...] Agency Comment | + + | [facility] | + + + +---------+ + [...] Resulting Agency Comment | + + | [facility] | + + + +---------+ + + [...] Resulting Agency Comment | + + | [facility] | + + + +---------+ + + [...] Agency Comment | + + | [facility] | + + + +---------+ [...] Resulting Agency Comment | + + | [facility] | + + + +---------+ + + [...] Resulting Agency Comment | + + | [facility] | + + + +---------+ [...] Resulting Agency Comment | + + | [facility] | + + + +---------+ + + [...] Agency Comment | + + | [facility] | + + + +---------+ + [...] Resulting Agency Comment | + + | [facility] | + + + +---------+ + + [...] Resulting Agency Comment | + + | [facility] | + + + +---------+ + + [...] Agency Comment | + + | [facility] | + + + +---------+ + [...] Resulting [facility] Comment | + + | [facility] | + + + +---------+ [...]
--- OUTSIDE RECORDS SUMMARY | ~2019-10-27 | XMS | Encounter Summary ---
Demographics + + + | Address | [address] | | | [place] [address] | + + + | Home Phone [...] Team Providers + +------+ + | Care Offline Cutter Name | Role | Phone | + +------+ + PCP | Unavailable | + +------+ + Encounter Details +--------+ + + + + | Date | Type | Department | Care Team | Description | +--------+ + + + + | 10/13/ | Hospital | [facility] | | | | 2007 | Encounter | MED CTR EMERGENCY | | | | | | [place] [address] | | | | | | [place] | | | | | | [address] | | | | | | [phone] | | | +--------+ + + + [...] | | | | | | [place] [address] | | | | | | [phone] | | | | | | | | +--------+ + + + + | 11/20/ | Implant | Cardiology | Daljit Singletary, | Remote Device | | 2018 | Monitor | | [address] [facility] | Interrogation | | | | | [place], | (Primary Dx); | | | | | [place] [address] | Presence of | | | | | [phone] | permanent cardiac | | | | [...]
--- OUTSIDE RECORDS SUMMARY | ~2019-10-27 | XMS | Encounter Summary ---
Demographics + + + | Address | [address] | | | [place] [address] | + + + | Home Phone [...] Team Providers + +------+ + | Care Bindery Manager Name | Role | Phone | [...] | 2016 | Encounter | MED CTR XRAY [address] | Marietta Mason, MANAGER ASSEMBLY [address] | stenosis | | | | [place] | [address] | | | | | [place] [address] | [place] [address] | | | | | [phone] | [phone] | | | | | | | | | | | | [place] | | +--------+ + + + + [...] this encounter Last Filed Vital Signs + +---------+ + + | Vital Sign | Reading | Time Taken | Comments | + +---------+ + + | Blood Pressure | 120/82 | 06/04/2016 9:00 AM | | | | | PDT | | + +---------+ + + | Pulse | 88 | 06/04/2016 9:00 AM | | | | | PDT | | + +---------+ + + | Temperature | - | - | | + +---------+ + + | Respiratory Rate | - | - | | + +---------+ + + | Oxygen Saturation | 97% | 06/04/2016 9:00 AM | | | | | PDT | | + +---------+ + + | Inhaled Oxygen | - | - | | | Concentration | | | | + +---------+ + + | Weight | - | - | | + +---------+ + + | Height | - | - | | + +---------+ + + | Body Mass Index | - | - | | + +---------+ + + documented in this encounter Functional [...] + + + +---------+ + + | [place]-3 Fatty | CAPS, one capsule by | [...] | | | | | | [place] [address] | | | | | | [phone] | | | | | | | | +--------+ + + + + | 11/20/ | Implant | Cardiology | Daljit Singletary, | Remote Device | | 2019 | Monitor | | MD [facility] | Interrogation | | | | | [place], | (Primary Dx); | | | | | [place] [address] | Presence of | | | | | [phone] | permanent cardiac | | | | [...] [place] INJECTION FOR CT | Routin | 06/04/2016 | Cervical spinal | Results for this | | MYELOGRAM | e | 10:17 AM | stenosis | procedure are in the | | | | PDT | | results section. | + +--------+ + + + documented in this encounter Results FL Injection for CT Myelogram (06/04/2016 10:17 AM PDT) + + | Specimen | + + | | + + + + + | Narrative | Performed At | + + + | FLUOROSCOPICALLY GUIDED LUMBAR MYELOGRAM INJECTION FOR CT CERVICAL | [facility] | | MYELOGRAM:06/04/2016 9:27 AM CLINICAL HISTORY:EVALUATE UE | | | RADICULOPATHY AND WEAKNESS PROCEDURE: The procedure of lumbar | | | puncture for myelogram with associated risks is discussed with the | | | patient. Verbal and written consent is then obtained to proceed. A | | | timeout was performed confirming the patient's identity and planned | | | procedure. Fluoroscopy was then utilized to identify an entry point to | | | the thecal sac at L3-L4. Skin is marked in this location and then | | | prepped in sterile fashion. Lidocaine 1% was then instilled and the | | | skin and along the proposed path of entry. Under direct fluoroscopic | | | observation, a 22-gauge spinal needle was then advanced | | | atraumatically into the thecal sac. Clear CSF was obtained. Sterile | | | Omnipaque 300,11 mL was then instilled, again under fluoroscopic | | | observation. Needle was then withdrawn and the procedure was | | | terminated. Table was tilted to distribute the contrast material. | | | Patient was then taken to CT for further imaging. No | | | complications or patient discomfort occurred. IMPRESSION - | | | Uneventful fluoroscopically guided myelogram injection. Dictated | | | and Signed by: Francesco Solis MD Electronically signed: 06/04/2016 | | | 1:27 PM | | + + + + + | Procedure Note | + + | Kevin, Rad Results In - 06/04/2016 1:30 PM PDT FLUOROSCOPICALLY GUIDED LUMBAR | | MYELOGRAM INJECTION FOR CT CERVICALMYELOGRAM:06/04/2016 9:27 AMCLINICAL HISTORY:EVALUATE | | UE RADICULOPATHY AND WEAKNESSPROCEDURE: The procedure of lumbar puncture for myelogram | | with associated risksis discussed with the patient. Verbal and written consent is then | | obtained toproceed. A timeout was performed confirming the patient's identity and | | plannedprocedure. Fluoroscopy was then utilized to identify an entry point to thethecal | | sac at L3-L4. Skin is marked in this location and then prepped in sterilefashion. | | Lidocaine 1% was then instilled and the skin and along the proposedpath of entry. Under | | direct fluoroscopic observation, a 22-gauge spinal needlewas then advanced | | atraumatically into the thecal sac. Clear CSF was obtained.Sterile Omnipaque 300,11 mL | | was then instilled, again under fluoroscopicobservation. Needle was then withdrawn and | | the procedure was terminated. Tablewas tilted to distribute the contrast material. | | Patient was then taken to CT forfurther imaging.No complications or patient discomfort | | occurred.IMPRESSION - Uneventful fluoroscopically guided myelogram injection.Dictated | | and Signed by: Francesco Solis MD Electronically signed: 06/04/2016 1:27 PM | |was tilted to distribute the contrast material. Patient was then taken to CT for | |further imaging. | | | |No complications or patient discomfort occurred. | | | |IMPRESSION - Uneventful fluoroscopically guided myelogram injection. | | | |Dictated and Signed by: Francesco Solis MD | | Electronically signed: 06/04/2016 1:27 PM | + + + +---------+ + [...] region | + + documented in this encounter Administered Medications + +--------+ +--------+------+------+ | Medication Order | MAR | Action | Dose | Rate | Site | | | Action | Date | | | | + +--------+ +--------+------+------+ | iohexol (OMNIPAQUE 300) 300 | Given | 06/04/20 | 11 mLs | | | | mg/mL injection 11 mL 11 mL, | | 16 10:11 | | | | | Other, ONCE PRN, Other, intra | | AM PDT | | | | | thecal, Starting Talia 06/04/16 at | | | | | | | 0930, For 1 dose, Radiology | | | | | | + +--------+ +--------+------+------+ +---+---+ | | | +---+---+ + +-------+ +--------+---+ + | lidocaine 1% injection 10 mL | Given | 06/04/20 | 10 mLs | | Other | | 10 mL, Intradermal, ONCE, Talia | | 16 10:30 | | | (Comment | | 06/04/16 at 1030, For 1 dose | | AM PDT | | | ) | + +-------+ +--------+---+ + +---+---+ | | | +---+---+ documented in this encounter"
--- OUTSIDE RECORDS SUMMARY | ~2019-10-27 | XMS | Encounter Summary ---
Demographics + + + | Address | [address] | | | [place] [address] | + + + | Home Phone [...] Team Providers + +------+ + | Care Applications Engineer Name | Role | Phone | + +------+ + PCP | Unavailable | + +------+ + Encounter Details +--------+ + + + + | Date | Type | Department | Care Team | Description | +--------+ + + + + | 10/09/ | [facility] | [facility] | Jonathan, | | | 2008 | Encounter | MED CTR EMERGENCY | Martell Cr MD [address] | | | | | CENTER [address] [place] | [address] | | | | | [place] | [place] [address] | | | | | [address] | [phone] | | | | | [phone] | | | +--------+ + + + [...] | | | | | [place], | | | | | | [place] [address] | | | | | | [phone] | | | | | | | | +--------+ + + + + | 11/20/ | Implant | Cardiology | Daljit Singletary, | Remote Device | | 2019 | Monitor | | MD [address] | Interrogation | | | | | [place], | (Primary Dx); | | | | | [place] [address] | Presence of | | | | | [phone] | permanent cardiac | | | | [...]
--- OUTSIDE RECORDS SUMMARY | ~2019-10-27 | XMS | Encounter Summary ---
Demographics + + + | Address | [address] | | | [place] [address] | + + + | Home Phone [...] Team Providers + +------+ + | Care Russian Rubber Name | Role | Phone | [...] 2012 | | CARDIOLOGY [address] | CHECK TOTALER [address] | | | | | [place], | [place], [place] | | | | | [place] [address] | [address] | | | | | [phone] | | | +--------+ + + + [...] | | | | | | [place] [address] | | | | | | [phone] | | | | | | | | +--------+ + + + + | 11/20/ | Implant | Cardiology | Daljit Singletary, | Remote Device | | 2019 | Monitor | | MD [address] [facility] [place] | Interrogation | | | | | [place], | (Primary Dx); | | | | | [place] [address] | Presence of | | | | | [phone] | permanent cardiac | | | | [...] +--------+ + + + | EXTERNAL LAB: [facility] | Routin | 08/08/2013 | | Results [...] + | [address] | [address] | [place], [place] | | | [facility] | | [address] | | | - LABORATORY | | | | + + + + + External Lab: Marcelina INR (08/08/2013) + +-------+ + + + [...] | | | LAB | | | Lao, | | | | | | External [...]
--- OUTSIDE RECORDS SUMMARY | ~2019-10-27 | XMS | Encounter Summary ---
Demographics + + + | Address | [address] | | | [place] [address] | + + + | Home Phone [...] Team Providers + +------+ + | Care Arboriculturist Name | Role | Phone | + [...] | 07/07/ | Telephone | [facility] [place] | Daljit Singletary, | Appointment | | 2012 | | CARDIOLOGY [address] | MD [address] [place] | | | | | [place], | [place], | | | | | [place] [address] | [place] [address] | | | | | [phone] | [phone] | | | | | | | [...] | | | | | | [place] [address] | | | | | | [phone] | | | | | | | | +--------+ + + + + | 11/20/ | Implant | Cardiology | Daljit Singletary, | Remote Device | | 2018 | Monitor | | [address] [facility] | Interrogation | | | | | [place], | (Primary Dx); | | | | | [place] [address] | Presence of | | | | | [phone] | permanent cardiac | | | | [...]
--- OUTSIDE RECORDS SUMMARY | ~2019-10-27 | XMS | Encounter Summary ---
Demographics + + + | Address | [address] | | | [place] [address] | + + + | Home Phone [...] + +------+ + | Care Safety And Security Officer Name | Role | Phone [...] + + | 09/01/ | Office | [facility] | Silvia, | Ascending thoracic | | 2015 | Visit | CARDIOLOGY [address] | [place] [place] [address] | aortic aneurysm | | | | [place], | [place], | ([facility]) (Primary Dx); | | | | [place] [address] | [place] [address] | Coronary artery | | | | [phone] | [phone] | disease involving | | | | | | wiyot coronary | | | | | | artery of wiyot | | | | | | heart [...] of non-critical coronary artery d isease involving wiyot coronary artery of wiyot heart without angina pectoris, essential h ypertension, [...] episode of chest pain while nelly ng [facility], so he took some sublingual nitroglycerin and [...] Preventative health care Coronary artery disease involving wiyot coronary artery of wiyot heart without angina pectoris Cannabis abuse, daily [...] by mouth every evening 90 tablet 3 [facility] (OSTEO BI-FLEX/5-LOXIN ADVANCED PO) Take [...] 3rd dose, call 911 100 tablet 3 [place]-3 Fatty Acids (SALMON OIL-1000 PO) CAPS, one [...] RESULTS reviewed during visit today primarily from [facility]: LIPID Lab Results Component Value [...] PLTEX 129* 05/12/2016 I reviewed records from [facility] for office visit on 06/2016 [facility] ch is summarized in the HPI. 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 On physical examination there are no signs of fluid overload. The plan will be to lose weight, modify portion control, start exercising, limit sodium in take and we will start losartan 25 mg once a day with a close monitoring of blood pressure. 2. Non-critical Coronary artery disease involving wiyot coronary artery of wiyot heart [facility] angina pectoris: A. Normal exercise sestamibi stress [...] to go back in 3 days to [place] for an attempt of ablation under general [...] this chart may have been created with [employer] voice recognition software. Occasi onal wrong-word or [...] | | | | | | [place] [address] | | | | | | [phone] | | | | | | | | +--------+ + + + + | 11/20/ | Implant | Cardiology | Daljit Singletary, | Remote Device | | 2019 | Monitor | | MD [address] [place] | Interrogation | | | | | [place], | (Primary Dx); | | | | | [place] [address] | Presence of | | | | | [phone] | permanent cardiac | | | | [...] + + | Coronary artery disease involving wiyot coronary artery of wiyot heart without | | angina pectoris | + + | Essential hypertension with goal blood pressure less than 130/80 | + + | Hyperlipidemia, mixed Mixed hyperlipidemia | + + documented in this encounter
--- OUTSIDE RECORDS SUMMARY | ~2019-10-27 | XMS | Encounter Summary ---
Demographics + + + | Address | [address] | | | [place] [address] | + + + | Home Phone [...] Team Providers + +------+ + | Care Handle Sewer Name | Role | Phone | [...] 2019 | | GASTROENTEROLOGY | [address] [place], [place] | | | | | [address] [place] | [address] [place], [place] | | | | | [address] [place], [place] | [address] | | | | | [address] | | | | | | [phone] | | | +--------+ + + + [...] W | | | | | | [place], | | | | | | [place] [address] | | | | | | [phone] | | | | | | | | +--------+ + + + + | 11/20/ | Implant | Cardiology | Daljit Singletary, | Remote Device | | 2018 | Monitor | | MD [address] | Interrogation | | | | | [place], | (Primary Dx); | | | | | [place] [address] | Presence of | | | | | [phone] | permanent cardiac | | | | [...]
--- OUTSIDE RECORDS SUMMARY | ~2019-10-27 | XMS | Encounter Summary ---
Demographics + + + | Address | [address] | | | [place] [address] | + + + | Home Phone [...] Providers + +------+ + | Care Warehouse Distribution Associate Name | Role | Phone | [...] | initial encounter; | | | | [place], [place] | | Elevated blood | | | | [address] | | pressure reading; | | | | [phone] | | Numbness and | | | [...] + + + +---------+ + + | [place]-3 Fatty | CAPS, one capsule by | [...] | | | | | | [place] [address] | | | | | | [phone] | | | | | | | | +--------+ + + + + | 11/20/ | Implant | Cardiology | Gemini Shaistakenneth, | Remote Device | | 2019 | Monitor | | MD [address] [facility] | Interrogation | | | | | [place], | (Primary Dx); | | | | | [place] [address] | Presence of | | | | | [phone] | permanent cardiac | | | | [...]
--- OUTSIDE RECORDS SUMMARY | ~2019-10-27 | XMS | Encounter Summary ---
Demographics + + + | Address | [address] | | | [place] [address] | + + + | Home Phone [...] Providers + +------+ + | Care Automobile Mechanic Supervisor Name | Role | Phone | [...] 2019 | | GASTROENTEROLOGY | [address] [place], [place] | | | | | [address] [place] | [address] [place], [place] | | | | | [address] [place], [place] | [address] | | | | | [address] | | | | | | [phone] | | | +--------+ + + + [...] W | | | | | | [place], | | | | | | [place] [address] | | | | | | [phone] | | | | | | | | +--------+ + + + + | 11/20/ | Implant | Cardiology | Daljit Singletary, | Remote Device | | 2019 | Monitor | | [address] [place] | Interrogation | | | | | [place], | (Primary Dx); | | | | | [place] [address] | Presence of | | | | | [phone] | permanent cardiac | | | | [...]
--- OUTSIDE RECORDS SUMMARY | ~2019-10-27 | XMS | Encounter Summary ---
Demographics + + + | Address | [address] | | | [place] [address] | + + + | Home Phone [...] Providers + +------+ + | Care Master Control Operator Name | Role | Phone [...] + | 08/23/ | Emergency | [facility] GUTIERRE[facility] MICHELLE | Michael Montoya MD | Peripheral edema | | 2015 | | [facility] | [address] | (Primary Dx); Venous | | | | CENTER [address] | [place], [place] | insufficiency | | | | [place], [place] | [address] | | | | | [address] | | | | | | [phone] | | | +--------+ + + + [...] cannot be sent through Care Everywhere.PERIPHERAL KENYETTA A, BILATERAL (IRISH)documented in this encounter Medications at Time of [...] + + + +---------+ + + | [place]-3 Fatty | CAPS, one capsule by | [...] | | | | | | | #[id number], exp 07/2016 | | | | | [...] | | | | | | [place] [address] | | | | | | [phone] | | | | | | | | +--------+ + + + + | 11/20/ | Implant | Cardiology | Daljit Singletary, | Remote Device | | 2018 | Monitor | | MD [address] | Interrogation | | | | | [address] [place], | (Primary Dx); | | | | | [place] [address] | Presence of | | | | | [phone] | permanent cardiac | | | | [...]
--- OUTSIDE RECORDS SUMMARY | ~2019-10-27 | XMS | Encounter Summary ---
Demographics + + + | Address | [address] | | | [place] [address] | + + + | Home Phone [...] Team Providers + +------+ + | Care Bleacher Kraft Pulp Name | Role | Phone | + +------+ + | Kirk French MD | PCP | | + +------+ + Encounter Details +--------+---------+ + + + | Date | Type | Department | Care Team | Description | +--------+---------+ + + + | 01/25/ | Surgery | [facility] | Daljit Singletary, | CV LHC | | 2019 | | MED CTR CV INTRA OP | MD [address] | | | | | [address] | [place], | | | | | [place] | [place] [address] | | | | | [address] | [phone] | | | | | [phone] | | | +--------+---------+ + + + [...] by your healthcare provider Date Last Reviewed: 09/22/201619993942-3342 [employer]. [address] [place] [address]. All righ ts reserved. This information is [...] + + + +---------+ + + | [place]-3 Fatty | CAPS, one capsule by | [...] W | | | | | | [address] [place], | | | | | | [place] [address] | | | | | | [phone] | | | | | | | | +--------+ + + + + | 11/20/ | Implant | Cardiology | Daljit Singletary, | Remote Device | | 2018 | Monitor | | [facility] | Interrogation | | | | | [place], | (Primary Dx); | | | | | [place] [address] | Presence of | | | | | [phone] | permanent cardiac | | | | | | pacemaker; | | | | | | Sinoatrial node | | | | | | dysfunction ([facility]) | | | | | [...] (1960) MEDICAL RECORD NUMBER: | | | [id number] OF PROCEDURE: 01/25/2019 PARTS CLEANER: Daljit | | | MD Gemini PROCEDURES [...] Sanchez, (1960) | | OF PROCEDURE: 01/25/2019PRIMARY WRECKING CAR DRIVER: Daljit Singletary MD PROCEDURES | | PERFORMED:Coronary [...] | Aggressive medical management. | | at 9:[facility] PROVIDER:Kirk French MDFor [...] | | | |PRIMARY CARE PROVIDER: | |Kikr French MD | | | | | | | |For additional detail as to the procedures performed and the equipment that was utilized, olrraine hudson refer to the Procedure Log. | [...] or lesion | | type, unspecified whether alutiiq or transplanted heart | + + documented [...]
--- OUTSIDE RECORDS SUMMARY | ~2019-10-27 | XMS | Encounter Summary ---
Demographics + + + | Address | [address] | | | [place] [address] | + + + | Home Phone [...] Providers + +------+ + | Care Business Services Administrator Name | Role | Phone | [...] [address] | | | | | | [place], [place] | (Fax) | | | | | [address] | | | | | | [phone] | | | +--------+ + + + [...] | | | | | | [place] [address] | | | | | | [phone] | | | | | | | | +--------+ + + + + | 11/20/ | Implant | Cardiology | Daljit Singletary, | Remote Device | | 2018 | Monitor | | [address] [facility] | Interrogation | | | | | [place], | (Primary Dx); | | | | | [place] [address] | Presence of | | | | | [phone] | permanent cardiac | | | | [...]
--- OUTSIDE RECORDS SUMMARY | ~2019-10-27 | XMS | Encounter Summary ---
Demographics + + + | Address | [address] | | | [place] [address] | + + + | Home Phone [...] Team Providers + +------+ + | Care Glass Etcher Name | Role | Phone | + [...] | disease involving | | | | [place], | [place], | [place] coronary | | | | [place] [address] | [place] [address] | artery without | | | | [phone] | [phone] | angina pectoris | | | | [...] W | | | | | | [place], | | | | | | [place] [address] | | | | | | [phone] | | | | | | | | +--------+ + + + + | 11/20/ | Implant | Cardiology | Daljit Singletary, | Remote Device | | 2018 | Monitor | | [place] [facility] | Interrogation | | | | | [place], | (Primary Dx); | | | | | [place] [address] | Presence of | | | | | [phone] | permanent cardiac | | | | [...] MD | | | | | | ([id number]) on 08/29/2015 | | | | | [...] + + | Coronary artery disease involving [place] coronary artery without angina pectoris - | | Primary | + + documented in this encounter"
--- OUTSIDE RECORDS SUMMARY | ~2019-10-27 | XMS | Encounter Summary ---
Demographics + + + | Address | [address] | | | [place] [address] | + + + | Home Phone [...] Team Providers + +------+ + | Care Pigment Grinder Name | Role | Phone | [...] | type | [address] | [address] | | | | | Procedures | ST [place] | [place], | | | | | FUP | [place], [place] | [place] [address] | | | | | | [address] | Phone: | | | | | | Phone: | [phone] | | | | | | [phone] | Fax: | | | | | | Fax: | [phone] | | | | | | [phone] | | +--------+ + + + + [...] | | | | CENTER [address] | [address] [place] | (Primary Dx) | | | | [place], [place] | [place] [address] | | | | | [address] | [phone] | | | | | [phone] | | | +--------+ + + + [...] cannot be sent through Care Everywhere.Angina, Stable ([place] Citizen)documented in this encounter Medications at Time of [...] + + + +---------+ + + | [place]-3 Fatty | CAPS, one capsule by | [...] W | | | | | | [place], | | | | | | [place] [address] | | | | | | [phone] | | | | | | | | +--------+ + + + + | 11/20/ | Implant | Cardiology | Gemini Shaistakenneth, | Remote Device | | 2019 | Monitor | | MD [address] [facility] | Interrogation | | | | | [place], | (Primary Dx); | | | | | [place] [address] | Presence of | | | | | [phone] | permanent cardiac | | | | [...] | | | | ANGELA MARADIAGA MD ([id number]) | | | | | | on [...] | | | | | | [employer] | | | | | [...] | [address] | [place] | [phone] | | [facility] | | [address] | | | - LABORATORY | | [...] [address] | [place] | [phone] | | [facility] | | [address] | | | - LABORATORY | | [...] | | | | | | [employer] | | | | | [...] + | [facility] | [address] | [place] | [phone] | | [facility] | | [address] | | | - LABORATORY | | [...] (H) | 7 - 18 mg/dL | [facility] | | | | [...] | | | FILTRATION | mL/min/1.73m2 | [facility] | | | [place] | RATE,ESTIMATED | | MEDICAL | | | | mL/min/1.08v1Dljq than | | CENTER - | | [...] | 9.3 | 8.3 - 10.5 | [facility] | | | | | mg/dL | [facility] | | | | | | MEDICAL | | | | | | CENTER - | | | | | | LABORATORY | | + + + + + + | Albumin | 4.2 | 3.2 - 5.0 g/dL | [facility] | | | | | | [facility] | | | | | [...] | | ine Ratio | | | [facility] | | | | | [...] [address] | [place] | [phone] | | [facility] | | [address] | | | - LABORATORY | | [...] | | Count | | | [facility] | | | | | | MEDICAL [...] | Neutrophils | | K/uL | [facility] | | | | | | MEDICAL [...] [address] | [place] | [phone] | | [facility] | | [address] | | | - LABORATORY | | [...] | | | | ANGELA MARADIAGA MD ([id number]) | | | | | | on [...]
--- OUTSIDE RECORDS SUMMARY | ~2019-10-27 | XMS | Encounter Summary ---
Demographics + + + | Address | [address] | | | [place] [address] | + + + | Home Phone [...] Team Providers + +------+ + | Care Stud Beef Cattle Farmer Name | Role | Phone | + +------+ + | Michael Amanda DO | PCP | | + +------+ + Encounter Details +--------+ + + + + | Date | Type | Department | Care Team | Description | +--------+ + + + + | 01/31/ | Hospital | [facility] | Adrian Gutierrez MD | | | 2012 | Encounter | HEART MED CTR | [address] | | | | | EMERGENCY CENTER | [place], [place] | | | | | [address] | [address] | | | | | [place] | [phone] | | | | | [address] | | | | | | [phone] | | | +--------+ + + + [...] + + + +---------+ + + | [place]-3 Fatty | CAPS, one capsule by [...] | | | | | | [place] [address] | | | | | | [phone] | | | | | | | | +--------+ + + + + | 11/20/ | Implant | Cardiology | Daljit Singletary, | Remote Device | | 2019 | Monitor | | [address] [facility] | Interrogation | | | | | [address] [place], | (Primary Dx); | | | | | [place] [address] | Presence of | | | | | [phone] | permanent cardiac | | | | [...] + + + | Exam Performed Location: [facility] TWO-VIEW | MISCELANIOUS | | CHEST CLINICAL [...] | an acute cardiopulmonary process. S: SQ ([id number]) Signed by: | | | JAYNE SPEAR MD | | + + + + + | Procedure Note | + + | Ekvin, Rad Conversion - 09/13/2013 10:25 PM PDT Exam Performed [facility]ST[facility]ICAL INFORMATION:Shortness of | | breath.COMPARISON:None.FINDINGS:There is a left subclavian dual lead cardiac pacer. The | | heart sizeand mediastinal contours are normal. The pulmonary vasculature isnormal. No | | focal airspace opacities, pleural effusions, orpneumothorax. Cervical fusion hardware | | is noted. No acute osseousfindings.IMPRESSION:No evidence of an acute cardiopulmonary | | process.S: SQ ([id number]) Signed by: JAYNE SPEAR MD | |COMPARISON: [...] | | | | | |S: SQ ([id number]) Signed by: JAYNE SPEAR MD | + + + +---------+ + + | Performing | Address | City/State/Zipcode | Phone Number | | Organization | | | | + +---------+ + + | MISCELLANEOUS LAB | | | [phone] | + +---------+ + + | MISCELANIOUS LAB | | | [phone] | + +---------+ + + Troponin I [...] + + | YESSY JONES | [address] | [place] [address] | | | [facility] | [...] + + | [facility] | [address] | [place] [address] | | | [facility] | [...] + + | YESSY JONES | [address] | [place] [address] | | | HEART [facility] | | | | | LABORATORY | | | | + + + + + | YESSY JONES | | | | | HEART [facility] | | | | [...] + + | YESSY JONES | [address] | [place] [address] | | | [facility] | | | | | LABORATORY | | | | + + + + + | YESSY JONES | | | | | [facility] | | | | [...] + + | Glucose | 154 (H)Comment: [place] | 65 - 99 mg/dL | [facility] [...] + + | YESSY JONES | [address] | [place] [address] | | | [facility] | | | | | LABORATORY | | | | + + + + + | YESSY JONES | | | | | [facility] | | | | | LABORATORY | | | | + + + + + documented in this encounter Visit Diagnoses Not on filedocumented in this encounter"
--- OUTSIDE RECORDS SUMMARY | ~2019-10-27 | XMS | Encounter Summary ---
Demographics + + + | Address | [address] | | | [place] [address] | + + + | Home Phone [...] Team Providers + +------+ + | Care Book Salesman Name | Role | Phone | + [...] | 01/04/ | Telephone | [facility] | Emmanuel Daniel MD | Other | | 2019 | | GASTROENTEROLOGY | [address] [place] | | | | | [address] [place] | [address] [place], [place] | | | | | [address] [place], [place] | [address] | | | | | [address] | | | | | | [phone] | | | +--------+ + + + [...] | | | | | | [place] [address] | | | | | | [phone] | | | | | | | | +--------+ + + + + | 11/20/ | Implant | Cardiology | Daljit Singletary, | Remote Device | | 2018 | Monitor | | MD [address] [address] | Interrogation | | | | | [address] [place], | (Primary Dx); | | | | | [place] [address] | Presence of | | | | | [phone] | permanent cardiac | | | | [...]
--- OUTSIDE RECORDS SUMMARY | ~2019-10-27 | XMS | Encounter Summary ---
Demographics + + + | Address | [address] | | | [place] [address] | + + + | Home Phone [...] Providers + +------+ + | Care Pharmacy Specialist Name | Role | Phone | [...] [address] | | | | [place], | [place], | | | | | [place] [address] | [place] [address] | | | | | [phone] | [phone] | | | | | | | [...] | | | | | | [place] [address] | | | | | | [phone] | | | | | | | | +--------+ + + + + | 11/20/ | Implant | Cardiology | Daljit Singletary, | Remote Device | | 2018 | Monitor | | [facility] | Interrogation | | | | | [address] [place], | (Primary Dx); | | | | | [place] [address] | Presence of | | | | | [phone] | permanent cardiac | | | | [...]
--- OUTSIDE RECORDS SUMMARY | ~2019-10-27 | XMS | Clinical Summary ---
Demographics + + + | Address | [address] | | | [place] [address] | + + + | Home Phone | | + + + | Preferred Language | Unknown | + + + | Marital Status | | + + + | Gnosticist Affiliation | 1013 | + + + | Race | Unknown | + + + | Ethnic Group | Unknown | + + + Author + + + | Author | [facility] [employer] (Historical as of | | | 07-08-19) | + + + | Organization | [facility] [employer] (Historical as of | | | 07-08-19) [...] Team Providers + +------+ + | Care Stock Layer Name | Role | Phone | [...] + | AUTO INSURANCE | AUTO | [id number] | | | | | | INSURA | | | | | | | NCE | | | | | | | GENERI | | | | | | | C | | | | | + +--------+ +------+-------+ + | AUTO INSURANCE | AUTO | [id number] | | | | | | INSURA | [id number] | | | | | | NCE | | | | | | | GENERI | | | | | | | C | | | | | + +--------+ +------+-------+ + | MEDICARE | MEDICA | [id number] | | | [address] | | | RE | | | | [place], [place] [address] | | | IP-OP | | | | | + +--------+ +------+-------+ + | [facility] | [place] | [id number] | | | | | | | [...] | Self | [birth year] | Home: | [address] | | | al/Fam | | 9 | [address]- | [address] [place], [place] | | | roxanne | | | [address] | [address] | + +--------+ +--------+ + + | AMILCAR GAY | Third | Self | [birth year] | Home: | [address] | | | Libertarian | | 9 | +- | [place], [place] | | | Liabil | | | [address] | [address] | | | ity | | | | | + +--------+ +--------+ + + | AMILCAR GAY | Third | Self | [birth year] | Home: | [address] | | | Libertarian | | 1960 | +- | [place], [place] | | | Liabil | | | [address] | [address] | | | ity | | | | | + +--------+ +--------+ + +
--- OUTSIDE RECORDS SUMMARY | ~2019-10-27 | XMS | Encounter Summary ---
Demographics + + + | Address | [address] | | | [place] [address] | + + + | Home Phone [...] Providers + +------+ + | Care Senior Research Executive Name | Role | Phone | + +------+ + PCP | Unavailable | + +------+ + Encounter Details +--------+ + + + + | Date | Type | Department | Care Team | Description | +--------+ + + + + | 05/28/ | [facility] | [facility] | Evan Gandara MD | | | 2008 | Encounter | MED CTR LABORATORY | [address] [facility] | | | | | [address] | [place] | | | | | [place] | [address] | | | | | [address] | | | | | | [phone] | | | +--------+ + + + [...] | | | | | | [place] [address] | | | | | | [phone] | | | | | | | | +--------+ + + + + | 11/20/ | Implant | Cardiology | Daljit Singletary, | Remote Device | | 2019 | Monitor | | MD [address] | Interrogation | | | | | [place] [place], | (Primary Dx); | | | | | [place] [address] | Presence of | | | | | [phone] | permanent cardiac | | | | [...]
--- OUTSIDE RECORDS SUMMARY | ~2019-10-27 | XMS | Encounter Summary ---
Demographics + + + | Address | [address] | | | [place] [address] | + + + | Home Phone [...] Providers + +------+ + | Care Emergency Room Doctor Name | Role | Phone | + +------+ + | Kirk French MD | PCP | | + +------+ + Encounter Details +--------+ + + + + | Date | Type | Department | Care Team | Description | +--------+ + + + + | 01/05/ | Hospital | [facility] | Emmanuel Daniel MD | Functional diarrhea | | 2019 | Encounter | MED CTR MP INTRA OP | [address] [place] | (Primary Dx); Weight | | | | [address] | [address] [place] | loss | | | | [place], [place] | [address] | | | | | [address] | | | | | | [phone] | | | +--------+ + + + [...] for a few hours. Date Last Reviewed: 09/22/201619997137-5651 [facility]. [address] [place] [address], [place] [address]. All righ ts reserved. This information is [...] vomiting, or vomiting blood Date Last Reviewed: 05/22/201619990012-6909 [facility]. [address] [place] [address]. All [facility] ts reserved. This information is not intended [...] You can't be awakened Date Last Reviewed: 09/08/201619997023-7294 [facility]. [address] [place] [address], [place] [address]. All righ ts reserved. This information is [...] + + + +---------+ + + | [place]-3 Fatty | CAPS, one capsule by | [...] W | | | | | | [address], | | | | | | [place] [address] | | | | | | [phone] | | | | | | | | +--------+ + + + + | 11/20/ | Implant | Cardiology | Daljit Singletary, | Remote Device | | 2018 | Monitor | | MD [address] | Interrogation | | | | | [address] [place], | (Primary Dx); | | | | | [place] [address] | Presence of | | | | | [phone] | permanent cardiac | | | | [...] [address], | REFERENCE LAB | | [place], [place] [address] Director Drug: Miguel Galarza MD, Phone: | [facility] | | [phone] | | + + + + + + + + | Performing | Address | City/State/Zipcode | Phone Number | | Organization | | | | + + + + + | REFERENCE LAB | [address] | [place] [address] | [phone] | | [facility] | Drive [...] [address], | REFERENCE LAB | | [place] [address] Director Drug: Miguel Galarza MD, Phone: | [facility] | | [phone] | | + + + + + + + + | Performing | Address | City/State/Zipcode | Phone Number | | Organization | | | | + + + + + | REFERENCE LAB | [address] [facility] | [place] [address] | [phone] | | [facility] | [facility] | | | + + + + [...] [address] | [place] | [phone] | | [facility] | | [address] | | | - LABORATORY | | [...] Negative for toxigenic | | [address] [facility] | | | GDH Antigen | Clostridium [...] [address] | [place] | [phone] | | [facility] | | [address] | | | - LABORATORY | | [...] | | | dium | | | [facility] | | | Antigen | | | [...] [address] | [place] | [phone] | | [facility] | | [address] | | | - LABORATORY | | [...] [address] | [place] | [phone] | | [facility] | | [address] | | | - LABORATORY | | [...] [address] | [place] | [phone] | | [facility] | | [address] | | | - LABORATORY | | [...] ST. | [address] | [place], [place] | [phone] | | [facility] | | [address] | | | - LABORATORY | | | | + + + + + BERNARDD (01/05/2019 8:36 AM PST) + + | Specimen | + + | | + + + + -+ | Narrative | Performed At | + + -+ | | [facility] | | GastroenterologyPatient Name: Moe Venegas Date: | PROVATION | | 01/05/2019 8:36 AMMRN: [id number] #: [id number] of : | | | 9Admit Type: AmbulatoryAge: 58Room: [facility] 01Gender: MaleNote | | | Status: FinalizedAttending MD: Emmanuel Daniel , [facility]cedure: | | | Upper GI endoscopyIndications: Diarrhea, Weight | | | lossProviders: Emmanuel Daniel MD, Heidi An, | | | RN, Kim Hicks, Watch Assembly Instructor, | | | Jarett Barakat MD (Anesthesia [...] physician, the nurse, the anesthesiologist and the cardiopulmonary technician | | | in the endoscopy [...] | | Imaging was performed using the [employer] | | | Endoscopy (FICE) [...] Scope In: 8:43:57 AMScope Out: 8:49:50 AM [facility]. | | | [facility], [address] [place] [address] | | | [phone] | | |Recommendation: | | | - [...] |Scope Out: 8:49:50 AM | | | [facility], [address] [facility], [place], [place] | | | [address] | | + + -+ + +---------+ [...] | PROVATION | | 01/05/2019 8:36 AMMRN: [id number] #: [id number] of : | | | 9Admit Type: AmbulatoryAge: 58Room: [facility] 01Gender: MaleNote | | | Status: FinalizedAttending MD: Emmanuel Daniel , [facility]cedure: | | | ColonoscopyIndications: Clinically significant diarrhea of | | | unexplained origin, Weight lossProviders: | | | Emmanuel Daniel MD, Heidi An RN, [place] | | | Fiorella Hicks, Watch Assembly Instructor, Jarett Sapna | | | MD Roshni [...] | | | the anesthesiologist and the cardiopulmonary technician in the endoscopy suite. | | [...] AMScope Out: | | | 9:06:28 AM [facility], [address] [place] [address], | | | [place] [address] | | | - Discharge patient to [...] |Scope Out: 9:06:28 AM | | | [facility], [address] [place] [address], [place], [place] | | | [address] | | + + -+ + +---------+ [...] | | | (atherosclerotic heart disease of kaw coronary artery without | | | angina [...] chronic or | | | microscopic colitis. BES:[facility]:C3NR GROSS DESCRIPTION: A. The | | | specimen, labeled "[place], duodenal biopsy" is received in formalin | | | and consists of seven 0.1-0.5 cm lin fragments. Entirely submitted in | | | (A1). B. The specimen, labeled "[place], right colon" is received | | | in formalin and consists of six 0.2-0.3 cm lin fragments. Entirely | | | submitted in (B1). C. The specimen, labeled "[place], left colon" | | | is received in formalin and consists of six 0.2-0.3 cm lin-pink | | | fragments. Entirely submitted in (C1). am:AMB:portillo PERFORMING | | | LABORATORY: The technical component was performed by [facility] | | | [facility], [address] [place] [address] (Generator Technician: | | | Kailey Stafford MD; CLIA# [id number]). Professional interpretation was | | | performed by [facility], [facility], [address] | | | [place] [address] (Generator Technician: [place] | Shanique Dao M.D.; LAYNE#: [id number]). Diagnostician: [place] | | Sylwia WINKLER [...] ONCE PRN, Wheezing, | | | Starting [facility] 01/05/19 at 0924, | | | [...] ONCE | | | PRN, Nausea, Starting [facility] 01/05/19 | | | at 0924, For 1 dose, | | | Recovery/Phase I | | + +---+ | | | + +---+ documented in this encounter
--- OUTSIDE RECORDS SUMMARY | ~2019-10-27 | XMS | Encounter Summary ---
Demographics + + + | Address | [address] | | | [place] [address] | + + + | Home Phone [...] Team Providers + +------+ + | Care Ag Service Manager Name | Role | Phone | [...] | | | DDD | Scotty C, MAILING JOGGER | [facility] | | | | | (degenerativ | [address] | [facility] | | | | | e disc | [facility] | MEDICAL | | | | | disease), | [address]IVE [address] | CENTER [address] | | | | | lumbar | B | Spring | | | | | Chronic | [place], [place] | [place], | | | | | left-sided | [address] | [place] [address] | | | | | low back | Phone: | Phone: | | | | | pain with | [phone] | [phone] | | | | | left-sided | Fax: | Fax: | | | | | sciatica | [phone] | [phone] | | | | | History of [...] | | | DDD | Scotty C, MAILING JOGGER | [address] | | | | | (degenerativ | [address] | [place], | | | | | e disc | [place] | [place] [address] | | | | | disease), | DRIVE [address] | Phone: | | | | | lumbar | B | [phone] | | | | | Chronic | [place], [place] | Fax: | | | | | left-sided | [address] | [phone] | | | | | low back | Phone: | | | | | | pain with | [phone] | | | | | | left-sided | Fax: | | | | | | sciatica | [phone] | | | | | | History [...] + + | 07/01/ | Hospital | [facility] | Scotty Galdamez, | DDD (degenerative | | 2018 | Encounter | MED CTR [address] | MAILING JOGGER [address] [facility] | disc disease), | | | | [place], | [address] | lumbar; Chronic | | | | [place] [address] | [place] [address] | left-sided low back | | | | [phone] | [phone] | pain with left-sided | | | [...] + + + +---------+ + + | [place]-3 Fatty | CAPS, one capsule by | [...] | | | | | | [place] [address] | | | | | | [phone] | | | | | | | | +--------+ + + + + | 11/20/ | Implant | Cardiology | AnshujohnsoncherelleShaistapawantoto, | Remote Device | | 2019 | Monitor | | [facility] | Interrogation | | | | | [place], | (Primary Dx); | | | | | [place] [address] | Presence of | | | | | [phone] | permanent cardiac | | | | [...]
--- OUTSIDE RECORDS SUMMARY | ~2019-10-27 | XMS | Encounter Summary ---
Demographics + + + | Address | [address] | | | [place] [address] | + + + | Home Phone [...] Providers + +------+ + | Care Driver Supervisor Name | Role | Phone | [...] + + | 06/04/ | Hospital | [facility] | Sariah, | Cervical spinal | | 2016 | Encounter | MED CTR XRAY [address] | Marietta Mason, MANAGER G[address]F [address] | stenosis | | | | [place] | [id number] | | | | | [place] [address] | [place] [address] | | | | | [phone] | [phone] | | | | | | | [...] + + + +---------+ + + | [place]-3 Fatty | CAPS, one capsule by | [...] | | | | | | [place] [address] | | | | | | [phone] | | | | | | | | +--------+ + + + + | 11/20/ | Implant | Cardiology | Daljit Singletary, | Remote Device | | 2019 | Monitor | | MD [facility] | Interrogation | | | | | [place], | (Primary Dx); | | | | | [place] [address] | Presence of | | | | | [phone] | permanent cardiac | | | | [...]
--- OUTSIDE RECORDS SUMMARY | ~2019-10-27 | XMS | Encounter Summary ---
Demographics + + + | Address | [address] | | | [place] [address] | + + + | Home Phone [...] Team Providers + +------+ + | Care Counter Attendant Name | Role | Phone | [...] + + | 06/18/ | Emergency | [facility] | Dom Graham, | Cervical pain (neck) | | 2013 | | MED CTR EMERGENCY | MD [address] | (Primary Dx); | | | | CENTER [address] [place] [place] | [place] | Paresthesia and pain | | | | [place], [place] | [address] | of both upper | | | | [address] | | extremities | | | | [phone] | | | +--------+ + + + [...] cannot be sent through Care Everywhere.PARAESTHESIAS ( KOSOVAN)NECK SPRAIN/STRAIN (KOSOVAN)documented in this encounter Medications at Time of [...] + + + +---------+ + + | [place]-3 Fatty | CAPS, one capsule by | [...] | | | | | | [place] [address] | | | | | | [phone] | | | | | | | | +--------+ + + + + | 11/20/ | Implant | Cardiology | Daljit Singletary, | Remote Device | | 2018 | Monitor | | MD Chiquis Oro | Interrogation | | | | | [place], | (Primary Dx); | | | | | [place] [address] | Presence of | | | | | [phone] | permanent cardiac | | | | [...] + | MISCELLANEOUS LAB | | | [phone] | + +---------+ + + | MISCELANIOUS LAB | | | [phone] | + +---------+ + + documented in this encounter Visit Diagnoses + + | Diagnosis | + + | Cervical pain (neck) - Primary Cervicalgia | + + | Paresthesia and pain of both upper extremities Disturbance of skin sensation | + + documented in this encounter
--- OUTSIDE RECORDS SUMMARY | ~2019-10-27 | XMS | Encounter Summary ---
Demographics + + + | Address | [address] | | | [place] [address] | + + + | Home Phone [...] Team Providers + +------+ + | Care Stress Analyst Name | Role | Phone | + +------+ + | Michael Amanda DO | PCP | | + +------+ + Encounter Details +--------+ + + + + | Date | Type | Department | Care Team | Description | +--------+ + + + + | 12/25/ | Hospital | [facility] | Daljit Singletary, | | | 2013 | Encounter | MED CTR XRAY [address] | [address] | | | | | [place] | [place], | | | | | [place] [address] | [place] [address] | | | | | [phone] | [phone] | | | | | | | [...] + + + +---------+ + + | [place]-3 Fatty | CAPS, one capsule by | [...] | | | | | | [place] [address] | | | | | | [phone] | | | | | | | | +--------+ + + + + | 11/20/ | Implant | Cardiology | Anshujohnsoncherelle Shaistapawanotto, | Remote Device | | 2019 | Monitor | | 401 [facility] | Interrogation | | | | | [place], | (Primary Dx); | | | | | [place] [address] | Presence of | | | | | [phone] | permanent cardiac | | | | [...] | [facility] | [place] | | Department [address] [place] [address] | [facility] | | [ rep [address]] [ rep [facility] | | st zip] Signed | - IMAGING | | | | | Patient Name: MOE GAY | | | Physician: MIGUELINA : 1960 Age: 53 Sex: M Unit | | | #: [id number] Exam Date: 12/25/13 Location: | | | SDS SDS-D Report #: [id number] Page: | | | %(RAD)RES..mtdd.print.filter("pg") of %(RAD) | | | RES..mtdd.print.filter("tpg") | | | | | | Accession Number: [id number] | | | LEFT HEART CATHETERIZATION, 12/25/2013 [...] the patient was taken to the cardiac cardiac cath technician. She | | | was prepared and draped in the usual fashion. Under sterile | | | technique and local anesthesia, percutaneous access was obtained | | | using #5 Cam[place]onian sheath in the right radial artery. Right heart cath | | | was not performed on this patient. Left ventriculography was | | | performed using #5 multipurpose diagnostic catheter. The selective | | | coronary angiography was then performed in several sagittal and | | | oblique projections using #5 multipurpose and #5 Cam[place]onian JL 3.5 | | | diagnostic catheters. [...] Transcribed | | | Date/Time: 12/25/2013 11:52 Medical Unit Secretary: | | | <<Signature on File>> | | | Suwong | | | MD CLEOPATRA Singletary FASNanette12/25/13 1343 <Electronically signed by | | | Daljit Singletary MD, [facility], FAC, ADELINE, FASNC> Daljit | | | MD CLEOPATRA Singletary 12/25/13 1035 Medical Unit Secretary: [employer] | | | Hwqaersbfbiuw37/03/14 1152 | | + + + + + + + + | Performing | Address | City/State/Zipcode | Phone Number | | Organization | | | | + + + + + | [facility] | [address] | [place] | [phone] | | [facility] | | [address] | | | - IMAGING | | | | + + + + + documented in this encounter Visit Diagnoses Not on filedocumented in this encounter
--- OUTSIDE RECORDS SUMMARY | ~2019-10-27 | XMS | Encounter Summary ---
Demographics + + + | Address | [address] | | | [place] [address] | + + + | Home Phone [...] Providers + +------+ + | Care Manager Nursing Name | Role | Phone | + [...] | | CARDIOLOGY [address] | Janeen ATMOSPHERIC SCIENCES PROFESSOR [address] | | | | | [place], | [place], | | | | | [place] [address] | [place] [address] | | | | | [phone] | [phone] | | | | | | | [...] W | | | | | | [place], | | | | | | [place] [address] | | | | | | [phone] | | | | | | | | +--------+ + + + + | 11/20/ | Implant | Cardiology | Daljit Singletary, | Remote Device | | 2018 | Monitor | | MD Chiquis Oro | Interrogation | | | | | [place], | (Primary Dx); | | | | | [place] [address] | Presence of | | | | | [phone] | permanent cardiac | | | | [...]
--- OUTSIDE RECORDS SUMMARY | ~2019-10-27 | XMS | Encounter Summary ---
Demographics + + + | Address | [address] | | | [place] [address] | + + + | Home Phone [...] Providers + +------+ + | Care Plug Assembler Name | Role | Phone | [...] + + | 02/21/ | Office | [facility] | Silvia, | Coronary artery | | 2019 | Visit | CARDIOLOGY [address] | PARISA [place] [address] | disease involving | | | | [place], | [place], | andreafski coronary | | | | [place] [address] | [place] [address] | artery of andreafski | | | | [phone] | [phone] | heart without angina | | | [...] of non-critical coronary artery d isease involving andreafski coronary artery of andreafski heart without angina pectoris, essential h ypertension, [...] stay active. He enjoys hunting in his [place]. He has not had any [...] Preventative health care Coronary artery disease involving andreafski coronary artery of andreafski heart without angina pectoris Cannabis abuse, daily [...] 3RD DOSE, CALL 911 100 tablet 3 [place]-3 Fatty Acids (SALMON OIL-1000 PO) CAPS, one capsule by mouth daily twice daily ondansetron (ZOFRAN ODT) 4 mg disintegrating tablet Take 4 mg by mouth. ONE TOUCH DELICA LANCETS [facility] [...] was found Confirmed by ANGELA MARADIAGA MD ([id number]) on 01/03/2019 8:10:39 PM LAB RESULTS reviewed during visit today primarily from [facility]: LIPID Lab Results Component Value Date TRIG [...] BNP 15 01/02/2019 I reviewed records from [facility] for angiogram results on 019 which is summarized in the HPI. RESULTS- I reviewed reports from [facility]: No results found. Left heart catheterization done [...] ASSESSMENT: 1. Non-critical Coronary artery disease involving andreafski coronary artery of andreafski heart [facility] angina pectoris: A.Normal exercise sestamibi stress [...] Symptoms with moderate exertion of t he [place] Heart Ass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 Heart failure stage [...] performed by Dr Juan Diego Gambino at [facility] on 01/30/2013.Patient had spontaneous PVC's [...] of presyncope 05/28/10 [facility], thought to have vasovagal symptoms. B. Today, [...] this chart may have been created with [employer] voice recognition software. Occasi onal wrong-word or [...] [place], | | | | | | [place] [address] | | | | | | [phone] | | | | | | | | +--------+ + + + + | 11/20/ | Implant | Cardiology | Daljit Singletary, | Remote Device | | 2018 | Monitor | | MD [address] [place] | Interrogation | | | | | [place], | (Primary Dx); | | | | | [place] [address] | Presence of | | | | | [phone] | permanent cardiac | | | | [...] + + | Coronary artery disease involving andreafski coronary artery of andreafski heart without | | angina pectoris - Primary | + + | Symptomatic PVCs Other premature beats | + + | Essential hypertension Unspecified essential hypertension | + + documented in this encounter
--- OUTSIDE RECORDS SUMMARY | ~2019-10-27 | XMS | Encounter Summary ---
Demographics + + + | Address | [address] | | | [place] [address] | + + + | Home Phone [...] Team Providers + +------+ + | Care Flamer Sealer Name | Role | Phone | [...] [place] | | | | | | [address] | | | | | | [phone] | | | +--------+ + + + [...] W | | | | | | [place], | | | | | | [place] [address] | | | | | | [phone] | | | | | | | | +--------+ + + + + | 11/20/ | Implant | Cardiology | Daljit Singletary, | Remote Device | | 2018 | Monitor | | [address] [facility] | Interrogation | | | | | [place], | (Primary Dx); | | | | | [place] [address] | Presence of | | | | | [phone] | permanent cardiac | | | | [...]
--- OUTSIDE RECORDS SUMMARY | ~2019-10-27 | XMS | Encounter Summary ---
Demographics + + + | Address | [address] [place] [address] | | | [place] [address] | + + + | Home Phone [...] [place] | | | | | [address] | | + + + + + Care Team Providers + +------+ + | Care Machine Hostler Name | Role | Phone | + [...] | [facility] at [facility] [address] | MD [address] | | | | | [address] | [facility] [place] | | | | | Mailcode: Center | [address] | | | | | for Health and | [phone] | | | | | [facility] [address] | | | | | | [place], [place] | | | | | | [address] | | | | | | [phone] | | | +--------+ + + + [...]
--- OUTSIDE RECORDS SUMMARY | ~2019-10-27 | XMS | Encounter Summary ---
Demographics + + + | Address | [address] | | | [place] [address] | + + + | Home Phone [...] Team Providers + +------+ + | Care Contour Sander Name | Role | Phone | + +------+ + PCP | Unavailable | + +------+ + Encounter Details +--------+ + + + + | Date | Type | Department | Care Team | Description | +--------+ + + + + | 11/12/ | Hospital | [facility] | | | | 1994 | Encounter | MED CTR GENERIC OP | | | | | | CONV DEPT [address] | | | | | | [place], | | | | | | [place] [address] | | | | | | [phone] | | | +--------+ + + + [...] | | | | | | [place] [address] | | | | | | [phone] | | | | | | | | +--------+ + + + + | 11/20/ | Implant | Cardiology | Daljit Singletary, | Remote Device | | 2018 | Monitor | | [facility] | Interrogation | | | | | [place], | (Primary Dx); | | | | | [place] [address] | Presence of | | | | | [phone] | permanent cardiac | | | | [...]
--- OUTSIDE RECORDS SUMMARY | ~2019-10-27 | XMS | Encounter Summary ---
Demographics + + + | Address | [address] | | | [place] [address] | + + + | Home Phone [...] Providers + +------+ + | Care Clinical Laboratory Technologist Name | Role | Phone | [...] | | CARDIOLOGY [address] | [address] [place] | | | | | [place], | [place], | | | | | [place] [address] | [place] [address] | | | | | [phone] | [phone] | | | | | | | [...] W | | | | | | [place], | | | | | | [place] [address] | | | | | | [phone] | | | | | | | | +--------+ + + + + | 11/20/ | Implant | Cardiology | Dajlit Snigletary, | Remote Device | | 2018 | Monitor | | 401 [facility] | Interrogation | | | | | [place], | (Primary Dx); | | | | | [place] [address] | Presence of | | | | | [phone] | permanent cardiac | | | | [...]
--- OUTSIDE RECORDS SUMMARY | ~2019-10-27 | XMS | Encounter Summary ---
Demographics + + + | Address | [address] | | | [place] [address] | + + + | Home Phone [...] Team Providers + +------+ + | Care Labor Economics Professor Name | Role | Phone | + +------+ + PCP | Unavailable | + +------+ + Encounter Details +--------+ + + + + | Date | Type | Department | Care Team | Description | +--------+ + + + + | 12/16/ | [facility] | [facility] | Naresh Mckeon | | | 2010 | Encounter | MED CTR SLEEP | MD Chaya [address] | | | | | CENTER [address] | [place] | | | | | [place] | [place] [address] | | | | | [address] | [phone] | | | | | [phone] | | | +--------+ + + + [...] | | | | | | [place] [address] | | | | | | [phone] | | | | | | | | +--------+ + + + + | 11/20/ | Implant | Cardiology | Daljit Singletary, | Remote Device | | 2019 | Monitor | | MD Chiquis Oro | Interrogation | | | | | [place], | (Primary Dx); | | | | | [place] [address] | Presence of | | | | | [phone] | permanent cardiac | | | | [...]
--- OUTSIDE RECORDS SUMMARY | ~2019-10-27 | XMS | Encounter Summary ---
Demographics + + + | Address | [address] | | | [place] [address] | + + + | Home Phone [...] Providers + +------+ + | Care Fuel System Maintenance Supervisor Name | Role | Phone | [...] | 10/09/ | Telephone | [facility] | Michael Amanda, | Other | | 2012 | | MEDIC[facility] [place] | DO [address] | | | | | [address] | [place] | | | | | [place] | [address] | | | | | [address] | | | | | | [phone] | | | +--------+ + + + [...] W | | | | | | [place], | | | | | | [place] [address] | | | | | | [phone] | | | | | | | | +--------+ + + + + | 11/20/ | Implant | Cardiology | Daljit Singletary, | Remote Device | | 2018 | Monitor | | MD Chiquis Oro | Interrogation | | | | | [place], | (Primary Dx); | | | | | [place] [address] | Presence of | | | | | [phone] | permanent cardiac | | | | [...]
--- OUTSIDE RECORDS SUMMARY | ~2019-10-27 | XMS | Encounter Summary ---
Demographics + + + | Address | [address] | | | [place] [address] | + + + | Home Phone [...] Providers + +------+ + | Care Inspector Machined Parts Name | Role | Phone | + [...] Provider Unknown | | | | | [place], [place] | [phone] | | | | | [address] | | | | | | [phone] | | | +--------+ + + + [...] + + + +---------+ + + | [place]-3 Fatty | CAPS, one capsule by | [...] | | | | | | [place] [address] | | | | | | [phone] | | | | | | | | +--------+ + + + + | 11/20/ | Implant | Cardiology | Daljit Singletary, | Remote Device | | 2019 | Monitor | | [address] [facility] | Interrogation | | | | | [place], | (Primary Dx); | | | | | [place] [address] | Presence of | | | | | [phone] | permanent cardiac | | | | [...]
--- OUTSIDE RECORDS SUMMARY | ~2019-10-27 | XMS | Encounter Summary ---
Demographics + + + | Address | [address] | | | [place] [address] | + + + | Home Phone [...] Providers + +------+ + | Care Student Counsellor Name | Role | Phone | + [...] | | CARDIOLOGY [address] | Janeen ORDNANCE OFFICER [address] | | | | | [place], | [place], | | | | | [place] [address] | [place] [address] | | | | | [phone] | [phone] | | | | | | | [...] W | | | | | | [place], | | | | | | [place] [address] | | | | | | [phone] | | | | | | | | +--------+ + + + + | 11/20/ | Implant | Cardiology | Daljit Singletary, | Remote Device | | 2018 | Monitor | | MD Chiquis Oro | Interrogation | | | | | [place], | (Primary Dx); | | | | | [place] [address] | Presence of | | | | | [phone] | permanent cardiac | | | | [...]
--- OUTSIDE RECORDS SUMMARY | ~2019-10-27 | XMS | Encounter Summary ---
Demographics + + + | Address | [address] | | | [place] [address] | + + + | Home Phone [...] Providers + +------+ + | Care Golf Stud Riveter Name | Role | Phone | + +------+ + | Michael Amanda DO | PCP | | + +------+ + Encounter Details +--------+ + + + + | Date | Type | Department | Care Team | Description | +--------+ + + + + | 02/27/ | Hospital | [facility] | Shelly Carter DO | Chest pain; | | 2013 - | Encounter | [facility] | [address] | Pacemaker; | | | | CLINICAL DECISION | [place] [address] | Mild dehydration | | 02/28/ | | [address] [facility] | [phone] | | | 2013 | | [place], [place] | | | | | | [address] | | | | | | [phone] | | | +--------+ + + + [...] 2252 Date of Service: 02/28/141044 Status: Addendum Antique Finisher: Dev Montano MD (Physician) Related Notes: Original Note by Dev Montano MD (Physician) filed at 02/28/14 1107 Patient ID: Pina Gay [id number] y.o. 1960 Admit date: 02/27/2014 Discharge [...] - 99 mg/dL Final Testing performed at [address] [address] BUN Date Value Range Status 02/28/2014 15 8 - 25 mg/dL Final Testing performed at [address] [address] CREATININE Date Value Range Status 02/28/2014 0.74 0.70 - 1.30 mg/dL Final Testing performed at [address] [address] BUN/CREAT Date Value Range Status 02/28/2014 20 Final Testing performed at [address] [address] TOTAL PROTEIN Date Value Range Status 02/28/2014 6.1* 6.3 - 8.2 g/dL Final Testing performed at [address] [address] GLOBULIN Date Value Range Status 02/28/2014 2.1 1.3 - 4.9 g/dL Final Testing performed at [address] [address] TBIL Date Value Range Status 02/28/2014 1.4 0.1 - 1.5 mg/dL Final Testing performed at [address] [address] ALT Date Value Range Status 02/28/2014 27 10 - 65 U/L Final Testing performed at [address] [address] AST Date Value Range Status 02/28/2014 31 10 - 45 U/L Final Testing performed at [address] [address] SODIUM Date Value Range Status 02/28/2014 138 135 - 143 mmol/L Final Testing performed at [facility], [address] [place] [address] POTASSIUM Date Value Range Status 02/28/2014 3.4* 3.5 - 4.9 mmol/L Final Testing performed at [facility], [address] [place] [address] CHLORIDE Date Value Range Status 02/28/2014 108 99 - 109 mmol/L Final Testing performed at [address] [address] CO2 Date Value Range Status 02/28/2014 21* 23 - 32 mmol/L Final Testing performed at [facility], [address] [place] [address] ANION GAP AGAP Date Value Range Status 02/28/2014 12 5 - 20 mmol/L Final Testing performed at [facility], [address] [place] [address] Xr Chest Pa And Lateral 02/27/2014 PINA [...] 3-D reconstructi ons were performed using the Spectrum Bridge 3-D software and sent to PACS. Oral Contrast: None I V contrast: 100 mL IsoVue 370 COMPARISON: None. 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 Singletary in [place] in December 2013 at [facility] which showed minimal occlusive disease. One artery was 25% and another was 15%, per patient. I requested official cardiac catheterization report from [place] and still waiting for it to come. [...] Per Pt None Chaka Ortiz MD [address] [facility] [id number] In 1 week Ariel Pulido MD [address] [facility] [id number] In 1 week Daljit Singletary MD [address] [facility] [address] [facility] [address] In 1 week Signed: DEV MONTANO 02/28/2014 10:45 AM Addendum:ADDENDUM I just received a cardiac catheterization report from [facility], [place], which was done on December 25, 2013. [...] + + + +---------+ + + | Butler-3 Fatty | CAPS, one capsule by | [...] 02/28/141211 Date of Service: 02/28/141210 Status: Signed Antique Finisher: Bijal Sosa RN (Registered Nurse) Discharge instructions [...] 02/28/1411 Date of Service: 02/28/1411 Status: Signed Antique Finisher: Mary Wetzel RPH (Pharmacist) Clinical Pharmacy Note: [...] Mary Wetzel PharmD 02/28/2014 12:11 AM docume pfeiffer in this encounter Plan of Treatment +--------+ + + + + | Date | Type | Specialty | Care Team | Description | +--------+ + + + + | 11/09/ | Office | Cardiology | Silvia | | | 2018 | Visit | | [address] | | | | | | [place], | | | | | | [place] [address] | | | | | | [phone] | | | | | | | | +--------+ + + + + | 11/20/ | Implant | Cardiology | Daljit Singletary, | Remote Device | | 2018 | Monitor | | MD [place] | Interrogation | | | | | [facility], | (Primary Dx); | | | | | [place] [address] | Presence of | | | | | [phone] | permanent cardiac | | | | [...] EXTERNAL | | | | performed at [facility];[address] | | LAB | | | | [address];[place], [place] | | | | | | [address] | | | | + + + [...] | | | | | | ACUTE PA Testing | | | | | | performed at [facility];[address] | | | | | | [facility];[place], [place] | | | | | | [address] | | | | + + + [...] | | | | | [place] [address] | | | | + + + + + + | RED CELL | 4.68Comment: Testing | 4.20 - 5.70 | EXTERNAL | | | COUNT | performed at [facility], [address] | M/uL | LAB | | | | [address], | | | | | | [place] [address] | | | | + + + + + + | Hgb | 15.3Comment: Testing | 13.2 - 17.0 | EXTERNAL | | | | performed at [facility], [address] | g/dL | LAB | | | | [address], | | | | | | [place] [address] | | | | + + + + + + | Hematocrit, | 44.2Comment: Testing | 39.0 - 50.0 % | EXTERNAL | | | POC | performed at [facility], [address] | | LAB | | | | [address], | | | | | | [place] [address] | | | | + + + + + + | MCV | 94.5Comment: Testing | 80.0 - 100.0 fl | EXTERNAL | | | | performed at [facility], [address] | | LAB | | | | [address], | | | | | | [place] [address] | | | | + + + + + + | MCH | 32.6Comment: Testing | 27.0 - 34.0 pg | EXTERNAL | | | | performed at [facility], [address] | | LAB | | | | [address], | | | | | | [place] [address] | | | | + + + + + + | MCHC | 34.5Comment: Testing | 32.0 - 35.5 | EXTERNAL | | | | performed at [facility], [address] | g/dL | LAB | | | | [address], | | | | | | [place] [address] | | | | + + + + + + | RDW-CV | 45.5Comment: Testing | 37 - 53 fl | EXTERNAL | | | | performed at [facility], [address] | | LAB | | | | [address], | | | | | | [place] [address] | | | | + + + + + + | Platelet | 156Comment: Testing | 150 - 400 K/uL | EXTERNAL | | | Count | performed at [facility], [address] | | LAB | | | Plasma | [address], | | | | | | [place] [address] | | | | + + + + + + | MPV | 8.8Comment: Testing | fl | EXTERNAL | | | | performed at [facility], [address] | | LAB | | | | [address], | | | | | | [place] [address] | | | | + + + + + + | Differentia | AUTOMATEDComment: | | EXTERNAL | | | l Type | Testing performed at | | LAB | | | | [facility], [address] | | | | | | [place] | | | | | | [address] | | | | + + + + + + | % Segmented | 57.7Comment: Testing | % | EXTERNAL | | | | performed at [facility], [address] | | LAB | | | Neutrophils | [address], | | | | | | [place] [address] | | | | + + + + + + | % | 31.8Comment: Testing | % | EXTERNAL | | | Lymphocytes | performed at [facility], [address] | | LAB | | | | [address], | | | | | | [place] [address] | | | | + + + + + + | % Monocytes | 9.2Comment: Testing | % | EXTERNAL | | | | performed at [facility], [address] | | LAB | | | | [address], | | | | | | [place] [address] | | | | + + + + + + | % | 0.9Comment: Testing | % | EXTERNAL | | | Eosinophils | performed at [facility], [address] | | LAB | | | | [address], | | | | | | [place] [address] | | | | + + + + + + | % Basophils | 0.4Comment: Testing | % | EXTERNAL | | | | performed at [facility], [address] | | LAB | | | | [address], | | | | | | [place] [address] | | | | + + + + + + | Absolute | 3.9Comment: Testing | 1.9 - 7.4 K/uL | EXTERNAL | | | Segmented | performed at [facility], [address] | | LAB | | | Neutrophils | [address], | | | | | | [place] [address] | | | | + + + + + + | Absolute | 2.1Comment: Testing | 1.0 - 3.9 K/uL | EXTERNAL | | | Lymphocytes | performed at [facility], [address] | | LAB | | | | [address], | | | | | | [place] [address] | | | | + + + + + + | Absolute | 0.6Comment: Testing | 0 - 0.8 K/uL | EXTERNAL | | | Monocytes | performed at [facility], [address] | | LAB | | | | [address], | | | | | | [place] [address] | | | | + + + + + + | Absolute | 0.1Comment: Testing | 0 - 0.5 K/uL | EXTERNAL | | | Eosinophils | performed at [facility], [address] | | LAB | | | | [address], | | | | | | [place] [address] | | | | + + + + + + | Absolute | 0.0Comment: Testing | 0 - 0.1 K/uL | EXTERNAL | | | Basophils | performed at [facility], [address] | | LAB | | | | [address], | | | | | | [place] [address] | | | | + + + [...] | | | | | [place] [address] | | | | + + + [...] EXTERNAL | | | | performed at [facility], [address] | | LAB | | | | [address], | | | | | | [place] [address] | | | | + + + [...] EXTERNAL | | | | performed at [facility];[address] | | LAB | | | | [address];[place] | | | | | | [address] | | | | + + + [...] | | | | | [place] [address] | | | | + + + + + + | Triglycerid | 37Comment: Testing | mg/dL | EXTERNAL | | | es | performed at [facility], [address] | | LAB | | | | [address], | | | | | | [place] [address] | | | | + + + + + + | HDL | 35 (L)Comment: Testing | mg/dL | EXTERNAL | | | | performed at [facility], [address] | | LAB | | | | [address], | | | | | | [place] [address] | | | | + + + + + + | LDL | 67Comment: Testing | mg/dL | EXTERNAL | | | Cholesterol | performed at [facility], [address] | | LAB | | | , | [address], | | | | | Calculated, | [place] [address] | | | | | External | [...] | | | | | [place] [address] | | | | + + + + + + | K | 3.4 (L)Comment: Testing | 3.5 - 4.9 | EXTERNAL | | | | performed at [facility], [address] | mmol/L | LAB | | | | [address], | | | | | | [place] [address] | | | | + + + + + + | Cl | 108Comment: Testing | 99 - 109 mmol/L | EXTERNAL | | | | performed at [facility], [address] | | LAB | | | | [address], | | | | | | [place] [address] | | | | + + + + + + | CO2 | 21 (L)Comment: Testing | 23 - 32 mmol/L | EXTERNAL | | | | performed at [facility], [address] | | LAB | | | | [address], | | | | | | [place] [address] | | | | + + + + + + | Anion Gap | 12Comment: Testing | 5 - 20 mmol/L | EXTERNAL | | | | performed at [facility], [address] | | LAB | | | | [address], | | | | | | [place] [address] | | | | + + + + + + | Glucose, | 107 (H)Comment: Testing | 65 - 99 mg/dL | EXTERNAL | | | Fasting | performed at [facility], [address] | | LAB | | | | [address], | | | | | | [place] [address] | | | | + + + + + + | BUN | 15Comment: Testing | 8 - 25 mg/dL | EXTERNAL | | | | performed at [facility], [address] | | LAB | | | | [address], | | | | | | [place] [address] | | | | + + + + + + | Creatinine | 0.74Comment: Testing | 0.70 - 1.30 | EXTERNAL | | | | performed at [facility], [address] | mg/dL | LAB | | | | [address], | | | | | | [place] [address] | | | | + + + + + + | BUN/Creatin | 20Comment: Testing | | EXTERNAL | | | ine Ratio | performed at [facility], [address] | | LAB | | | | [address], | | | | | | [place] [address] | | | | + + + + + + | Calcium | 8.9Comment: Testing | 8.5 - 10.2 | EXTERNAL | | | | performed at [facility], [address] | mg/dL | LAB | | | | [address], | | | | | | [place] [address] | | | | + + + + + + | Protein, | 6.1 (L)Comment: Testing | 6.3 - 8.2 g/dL | EXTERNAL | | | Total | performed at [facility], [address] | | LAB | | | | [address], | | | | | | [place] [address] | | | | + + + + + + | Albumin | 4.0Comment: Testing | 3.6 - 5.0 g/dL | EXTERNAL | | | | performed at [facility], [address] | | LAB | | | [address], | | | | | | [place] [address] | | | | + + + + + + | Globulin | 2.1Comment: Testing | 1.3 - 4.9 g/dL | EXTERNAL | | | | performed at [facility], [address] | | LAB | | | | [address], | | | | | | [place] [address] | | | | + + + + + + | A/G Ratio | 1.9Comment: Testing | 1.0 - 2.4 | EXTERNAL | | | | performed at [facility], [address] | | LAB | | | | [address], | | | | | | [place] [address] | | | | + + + + + + | Bilirubin | 1.4Comment: Testing | 0.1 - 1.5 mg/dL | EXTERNAL | | | Total | performed at [facility], [address] | | LAB | | | | [address], | | | | | | [place] [address] | | | | + + + + + + | ALP, | 46Comment: Testing | 35 - 115 U/L | EXTERNAL | | | External | performed at [facility], [address] | | LAB | | | | [address], | | | | | | [place] [address] | | | | + + + + + + | AST | 31Comment: Testing | 10 - 45 U/L | EXTERNAL | | | | performed at [facility], [address] | | LAB | | | | [address], | | | | | | [place] [address] | | | | + + + + + + | ALT | 27Comment: Testing | 10 - 65 U/L | EXTERNAL | | | | performed at [facility], [address] | | LAB | | | | [address], | | | | | | [place] [address] | | | | + + + [...] | | | | | | at [facility], [address] | | | | | | [address], | | | | | | [place] [address] | | | | + + + [...] EXTERNAL | | | | performed at [facility];[address] | | LAB | | | | [address];[place], [place] | | | | | | [address] | | | | + + + [...] | | | | | | ACUTE PA Testing | | | | | | performed at [facility] | | | | | | [facility];[place], [place] | | | | | | [address] | | | | + + + [...] EXTERNAL | | | | performed at [facility];[address] | | LAB | | | | [facility], [place] | | | | | | [address] | | | | + + + [...] were | | | performed using the Spectrum Bridge 3-D software and sent to PACS. Oral | | | Contrast: None IV contrast: 100 mL IsoVue 370 COMPARISON: None. 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 Oral Contrast: NoneIV contrast: 100 | | mL IsoVue 370 COMPARISON:None. 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 shows a pacemaker via | | [...] + + + | PINA [place] XR CHEST 2 VIEW FRONTAL AND LATERAL [...] EXTERNAL | | | | performed at [facility];[address] | | LAB | | | | [address];[place] | | | | | | [address] | | | | + + + + + -+ | RED CELL | 5.19Comment: Testing | 4.20 - 5.70 | EXTERNAL | | | COUNT | performed at [facility];[address] | M/uL | LAB | | | | [address];[place] | | | | | | [address] | | | | + + + + + -+ | Hgb | 16.8Comment: Testing | 13.2 - 17.0 | EXTERNAL | | | | performed at [facility];[address] | g/dL | LAB | | | | [address];[place] | | | | | | [address] | | | | + + + + + -+ | Hematocrit, | 49.5Comment: Testing | 39.0 - 50.0 % | EXTERNAL | | | POC | performed at [facility];[address] | | LAB | | | | [address];[place] | | | | | | [address] | | | | + + + + + -+ | MCV | 95.4Comment: Testing | 80.0 - 100.0 fl | EXTERNAL | | | | performed at [facility];[address] | | LAB | | | | [address];[place] | | | | | | [address] | | | | + + + + + -+ | MCH | 32.4Comment: Testing | 27.0 - 34.0 pg | EXTERNAL | | | | performed at [facility];[address] | | LAB | | | | [address];[place] | | | | | | [address] | | | | + + + + + -+ | MCHC | 34.0Comment: Testing | 32.0 - 35.5 | EXTERNAL | | | | performed at [facility];[address] | g/dL | LAB | | | | [address];[place] | | | | | | [address] | | | | + + + + + -+ | RDW-CV | 46.8Comment: Testing | 37 - 53 fl | EXTERNAL | | | | performed at [facility];[address] | | LAB | | | | [address];[place] | | | | | | [address] | | | | + + + + + -+ | Platelet | 179Comment: Testing | 150 - 400 K/uL | EXTERNAL | | | Count | performed at [facility];[address] | | LAB | | | Plasma | [address];[place] | | | | | | [address] | | | | + + + + + -+ | MPV | 8.6Comment: Testing | fl | EXTERNAL | | | | performed at [facility];[address] | | LAB | | | | [address];[place] | | | | | | [address] | | | | + + + + + -+ | Differentia | AUTOMATEDComment: | | EXTERNAL | | | l Type | Testing performed at | | LAB | | | | [facility];[address];[place] [address] | | | | + + + + + -+ | % Segmented | 62.4Comment: Testing | % | EXTERNAL | | | | performed at [facility];[address] | | LAB | | | Neutrophils | [address];[place] | | | | | | [address] | | | | + + + + + -+ | % | 26.3Comment: Testing | % | EXTERNAL | | | Lymphocytes | performed at [facility];[address] | | LAB | | | | [address];[place] | | | | | | [address] | | | | + + + + + -+ | % Monocytes | 10.3Comment: Testing | % | EXTERNAL | | | | performed at [facility];[address] | | LAB | | | | [address];[place] | | | | | | [address] | | | | + + + + + -+ | % | 0.5Comment: Testing | % | EXTERNAL | | | Eosinophils | performed at [facility];[address] | | LAB | | | | [address];[place] | | | | | | [address] | | | | + + + + + -+ | % Basophils | 0.5Comment: Testing | % | EXTERNAL | | | | performed at [facility];[address] | | LAB | | | | [address];[place] | | | | | | [address] | | | | + + + + + -+ | Absolute | 6.3Comment: Testing | 1.9 - 7.4 K/uL | EXTERNAL | | | Segmented | performed at [facility];[address] | | LAB | | | Neutrophils | [address];[place] | | | | | | [address] | | | | + + + + + -+ | Absolute | 2.7Comment: Testing | 1.0 - 3.9 K/uL | EXTERNAL | | | Lymphocytes | performed at [facility];[address] | | LAB | | | | [address];[place] | | | | | | [address] | | | | + + + + + -+ | Absolute | 1.0 (H)Comment: Testing | 0 - 0.8 K/uL | EXTERNAL | | | Monocytes | performed at [facility];[address] | | LAB | | | | [address];[place] | | | | | | [address] | | | | + + + + + -+ | Absolute | 0.0Comment: Testing | 0 - 0.5 K/uL | EXTERNAL | | | Eosinophils | performed at [facility];[address] | | LAB | | | | [address];[place] | | | | | | [address] | | | | + + + + + -+ | Absolute | 0.1Comment: Testing | 0 - 0.1 K/uL | EXTERNAL | | | Basophils | performed at [facility];[address] | | LAB | | | | [address];[place] | | | | | | [address] | | | | + + + + + -+ | Na | 139Comment: Testing | 135 - 143 | EXTERNAL | | | | performed at [facility];[address] | mmol/L | LAB | | | | [address];[place] | | | | | | [address] | | | | + + + + + -+ | K | 3.4 (L)Comment: Testing | 3.5 - 4.9 | EXTERNAL | | | | performed at [facility];[address] | mmol/L | LAB | | | | [address];[place] | | | | | | [address] | | | | + + + + + -+ | Cl | 108Comment: Testing | 99 - 109 mmol/L | EXTERNAL | | | | performed at [facility];[address] | | LAB | | | | [address];[place] | | | | | | [address] | | | | + + + + + -+ | CO2 | 21 (L)Comment: Testing | 23 - 32 mmol/L | EXTERNAL | | | | performed at [facility];[address] | | LAB | | | | [address];[place] | | | | | | [address] | | | | + + + + + -+ | Anion Gap | 14Comment: Testing | 5 - 20 mmol/L | EXTERNAL | | | | performed at [facility];[address] | | LAB | | | | [address];[place] | | | | | | [address] | | | | + + + + + -+ | Glucose, | 124 (H)Comment: Testing | 65 - 99 mg/dL | EXTERNAL | | | Fasting | performed at [facility];[address] | | LAB | | | | [address];[place] | | | | | | [address] | | | | + + + + + -+ | BUN | 20Comment: Testing | 8 - 25 mg/dL | EXTERNAL | | | | performed at [facility];[address] | | LAB | | | | [address];[place] | | | | | | [address] | | | | + + + + + -+ | Creatinine | 0.97Comment: Testing | 0.70 - 1.30 | EXTERNAL | | | | performed at [facility];[address] | mg/dL | LAB | | | | [address];[place] | | | | | | [address] | | | | + + + + + -+ | BUN/Creatin | 21Comment: Testing | | EXTERNAL | | | ine Ratio | performed at [facility];[address] | | LAB | | | | [address];[place] | | | | | | [address] | | | | + + + + + -+ | Calcium | 8.7Comment: Testing | 8.5 - 10.2 | EXTERNAL | | | | performed at [facility];[address] | mg/dL | LAB | | | | [address];[place] | | | | | | [address] | | | | + + + + + -+ | Protein, | 7.6Comment: Testing | 6.3 - 8.2 g/dL | EXTERNAL | | | Total | performed at [facility];[address] | | LAB | | | | [address];[place] | | | | | | [address] | | | | + + + + + -+ | Albumin | 4.2Comment: Testing | 3.6 - 5.0 g/dL | EXTERNAL | | | | performed at [facility];[address] | | LAB | | | | [address];[place] | | | | | | [address] | | | | + + + + + -+ | Globulin | 3.4Comment: Testing | 1.3 - 4.9 g/dL | EXTERNAL | | | | performed at [facility];[address] | | LAB | | | | [address];[place] | | | | | | [address] | | | | + + + + + -+ | A/G Ratio | 1.2Comment: Testing | 1.0 - 2.4 | EXTERNAL | | | | performed at [facility];[address] | | LAB | | | | [address];[place] | | | | | | [address] | | | | + + + + + -+ | Bilirubin | 1.1Comment: Testing | 0.1 - 1.5 mg/dL | EXTERNAL | | | Total | performed at [facility];[address] | | LAB | | | | [address];[place] | | | | | | [address] | | | | + + + + + -+ | ALP, | 77Comment: Testing | 35 - 115 U/L | EXTERNAL | | | External | performed at [facility];[address] | | LAB | | | [address];[place] | | | | | | [address] | | | | + + + + + -+ | AST | 35Comment: Testing | 10 - 45 U/L | EXTERNAL | | | | performed at [facility];[address] | | LAB | | | | [address];[place] | | | | | | [address] | | | | + + + + + -+ | ALT | 43Comment: Testing | 10 - 65 U/L | EXTERNAL | | | | performed at [facility];[address] | | LAB | | | | [address];[place] | | | | | | [address] | | | | + + + [...] | | | | | | at [facility];[address] | | | | [address];[place] [id number] | | | | + + + + + -+ | CK, Total | 510 (H)Comment: Testing | 55 - 400 U/L | EXTERNAL | | | | performed at [facility];[address] | | LAB | | | | [address];[place] | | | | | | [address] | | | | + + + [...] | | | | | performed at [facility];[address] | | | | | [address];[place] | | | | | | [address] | | | | + + + + + -+ | aPTT, | 24Comment: Testing | 23 - 32 seconds | EXTERNAL | | | Patient | performed at [facility];[address] | | LAB | | | [address];[place] | | | | | | [address] | | | | + + + + + -+ | CK-MB | 9.3 (H)Comment: Testing | 0.5 - 3.6 ng/mL | EXTERNAL | | | | performed at [facility];[address] | | LAB | | | | [facility];[place], [place] | | | | | | [address] | | | | + + + [...] EXTERNAL | | | | performed at [facility];[address] | uIU/mL | LAB | | | | [address];[place] | | | | | | [address] | | | | + + + [...] EXTERNAL | | | | performed at [facility];[address] | | LAB | | | | [address];[place], [place] | | | | | | [address] | | | | + + + [...]
--- OUTSIDE RECORDS SUMMARY | ~2019-10-27 | XMS | Encounter Summary ---
Demographics + + + | Address | [address] | | | [place] [address] | + + + | Home Phone [...] Team Providers + +------+ + | Care Christmas Tree Grader Name | Role | Phone | [...] Refill | | 2011 | | [facility] | DO [address] | | | | | [address] | [place] | | | | | [place] | [address] | | | | | [address] | | | | | | [phone] | | | +--------+--------+ + + + [...] | | | | | | [place] [address] | | | | | | [phone] | | | | | | | | +--------+ + + + + | 11/20/ | Implant | Cardiology | Daljit Singletary, | Remote Device | | 2019 | Monitor | | [facility] | Interrogation | | | | | [address] [place], | (Primary Dx); | | | | | [place] [address] | Presence of | | | | | [phone] | permanent cardiac | | | | [...]
--- OUTSIDE RECORDS SUMMARY | ~2019-10-27 | XMS | Encounter Summary ---
Demographics + + + | Address | [address] [place] [address] | | | [place] [address] | + + + | Home Phone [...] [place] | | | | | [address] | | + + + + + Care Team Providers + +------+ + | Care Android Programmer Name | Role | Phone | [...] | at [facility] | [facility] | | | | | [address] | [place] [address] | | | | | [facility] | | | | | | Mailcode: [id number] Yao | | | | | | Leobardo Pedraza | | | | | | [facility] | | | | | | [place] [address] | | | | | | [phone] | | | +--------+ + + + [...] view image for the detailed interpretation from [employer] results. | CARDIOLOGY | + + + + + + + + | Performing | Address | City/State/Zipcode | Phone Number | | Organization | | | | + + + + + | [facility] | [address] | [place], [place] | | | CARDIOLOGY | [address] | [address] | | + + + + + documented in this encounter Visit Diagnoses Not on filedocumented in this encounter"
--- OUTSIDE RECORDS SUMMARY | ~2019-10-27 | XMS | Encounter Summary ---
Demographics + + + | Address | [address] | | | [place] [address] | + + + | Home Phone [...] Team Providers + +------+ + | Care Appliances Sample Maker Name | Role | Phone | + +------+ + PCP | Unavailable | + +------+ + Encounter Details +--------+ + + + + | Date | Type | Department | Care Team | Description | +--------+ + + + + | 06/13/ | [facility] | [facility] | Daljit Singletary, | | | 2008 | Encounter | MED CTR LABORATORY | [address] | | | | | [address] | [place], | | | | | [place] | [place] [address] | | | | | [address] | [phone] | | | | | [phone] | | | +--------+ + + + [...] [address] | | | | | | [address] [place], | | | | | | [place] [address] | | | | | | [phone] | | | | | | | | +--------+ + + + + | 11/20/ | Implant | Cardiology | Daljit Singletary, | Remote Device | | 2019 | Monitor | | MD Chiquis [address] | Interrogation | | | | | [place], | (Primary Dx); | | | | | [place] [address] | Presence of | | | | | [phone] | permanent cardiac | | | | [...]
--- OUTSIDE RECORDS SUMMARY | ~2019-10-27 | XMS | Encounter Summary ---
Demographics + + + | Address | [address] [place] [address] | | | [place] [address] | + + + | Home Phone | | + + + | Preferred Language | Unknown | + + + | Marital Status | | + + + | Rastafari Affiliation | Unknown | + + + | Race | White | + + + | Ethnic Group | Not or | + + + Author + + + | Author | [facility] | + + + | Organization | [facility] | + + + | Address | Unknown | + + + | Phone | Unavailable | + + + Support + + + + + | Name | Relationship | Address | Phone | + + + + + | Rachel Valencia | ELIEZER | [place] | | | | | [address] | | + + + + + Care Team Providers + +------+ + | Care Landscape Nurseryman Name | Role | Phone | + [...] | | | [address] | [place], [place] | | | | | Mailcode: [place] | [address] | | | | | for Health and | [phone] | | | | | [facility], [facility] [address] | | | | | | [place], [place] | | | | | | [address] | | | | | | [phone] | | | +--------+ + + + [...]
--- OUTSIDE RECORDS SUMMARY | ~2019-10-27 | XMS | Encounter Summary ---
Demographics + + + | Address | [address] | | | [place] [address] | + + + | Home Phone [...] Team Providers + +------+ + | Care Radiographer Technologist Name | Role | Phone | + +------+ + PCP | Unavailable | + +------+ + Encounter Details +--------+ + + + + | Date | Type | Department | Care Team | Description | +--------+ + + + + | 08/26/ | Hospital | [facility] | | | | 2009 | Encounter | MED CTR LABORATORY | | | | | | [address] | | | | | | [place] | | | | | | [address] | | | | | | [phone] | | | +--------+ + + + [...] | | | | | | [place] [address] | | | | | | [phone] | | | | | | | | +--------+ + + + + | 11/20/ | Implant | Cardiology | Daljit Singletary, | Remote Device | | 2018 | Monitor | | [facility] | Interrogation | | | | | [place], | (Primary Dx); | | | | | [place] [address] | Presence of | | | | | [phone] | permanent cardiac | | | | [...]
--- OUTSIDE RECORDS SUMMARY | ~2019-10-27 | XMS | Encounter Summary ---
Demographics + + + | Address | [address] | | | [place] [address] | + + + | Home Phone [...] Providers + +------+ + | Care Vp Information Technology Name | Role | Phone | + +------+ + | Michael Amanda DO | PCP | | + +------+ + Encounter Details +--------+ + + + + | Date | Type | Department | Care Team | Description | +--------+ + + + + | 07/30/ | Abstract | [facility] | Michael Amanda, | | | 2013 | | [facility] | DO [address] | | | | | [address] | [place] | | | | | [place] | [address] | | | | | [address] | | | | | | [phone] | | | +--------+ + + + [...] | | | | | | [place] [address] | | | | | | [phone] | | | | | | | | +--------+ + + + + | 11/20/ | Implant | Cardiology | Daljit Singletary, | Remote Device | | 2019 | Monitor | | MD [facility] | Interrogation | | | | | [place], | (Primary Dx); | | | | | [place] [address] | Presence of | | | | | [phone] | permanent cardiac | | | | [...] | EXTERNAL LAB: MONET | Routin | 07/26/2014 | | Results for this | | | e | | | procedure are in the | | | | | | results section. | + +--------+ + + + | EXTERNAL LAB: FLORENTINO | Isela | 07/26/2014 | | Results for this | | SCREEN | e | | | procedure are in the | | | | | | results section. | + +--------+ + + + | EXTERNAL LAB: PITO | Isela | 07/26/2014 | | Results for this | | | e | | | procedure are in the | | | | | | results section. | + +--------+ + + + | EXTERNAL LAB: TYLER | Isela | 07/26/2014 | | Results for this | | | e | | | procedure are in the | | | | | | results section. | + +--------+ + + + | EXTERNAL LAB: TSH | Routin | 07/26/2014 | | Results for this | | | e | | | procedure are in the | | | | | | results section. | + +--------+ + + + | EXTERNAL LAB: | Routin | 07/26/2014 | | Results for this | | TRIGLYCERIDES | e | | | procedure are in the | | | | | | results section. | + +--------+ + + + | EXTERNAL LAB: | Routin | 07/26/2014 | | Results for this | | CHOLESTEROL, HDL | e | | | procedure are in the | | | | | | results section. | + +--------+ + + + | EXTERNAL LAB: | Routin | 07/26/2014 | | Results for this | | CHOLESTEROL, TOTAL | e | | | procedure are in the | | | | | | results section. | + +--------+ + + + | EXTERNAL LAB: | Routin | 07/26/2014 | | Results for this | | CHOLESTEROL, LDL | e | | | procedure are in the | | | | | | results section. | + +--------+ + + + | EXTERNAL LAB: EGFR | Routin | 07/26/2014 | | Results for this | | | e | | | procedure are in the | | | | | | results section. | + +--------+ + + + | EXTERNAL LAB: | Routin | 07/26/2014 | | Results for this | | CREATININE | e | | | procedure are in the | | | | | | results section. | + +--------+ + + + | CBC WITH | Routin | 07/26/2014 | | Results for this | | DIFFERENTIAL | e | | | procedure are in the | | | | | | results section. | + +--------+ + + + | COMPREHENSIVE | Routin | 07/26/2014 | | Results for this | | METABOLIC PANEL | e | | | procedure are in the | | | | | | results section. | + +--------+ + + + documented in this encounter Results CBC with Differential (07/26/2014) + + + + + + | Component | Value | Ref Range | Performed | Pathologist | | | | | At | Signature | + + + + + + | RBC | 4.95 | 10*6/uL | | | + + + + + + | MCV | 98.4 | 80.0 - 100.0 fL | | | + + + + + + | MCH | 34.0 (A) | 26.0 - 33.0 pg | | | + + + + + + | MCHC | 34.0 | 31.0 - 37.0 % | | | + + + + + + | RDW-CV | 12.6 | 11.0 - 15.0 % | | | + + + + + + | WBC | 6.2 | 10*3/uL | | | + + + + + + | Hgb | 16.8 (A) | 13.7 - 16.7 | | | | | | gm/dL | | | + + + + + + | Hct | 48.7 | 40.0 - 50.0 % | | | + + + + + + | Platelet | 163 | 150 - 400 | | | | Count | | 10*3/uL | | | + + + + + + | % Segmented | 66.5 | 40.0 - 80.0 % | | | | | | | | | | Neutrophils | | | | | + + + + + + | % | 19.7 | 15.0 - 45.0 % | | | | Lymphocytes | | | | | + + + + + + | % Monocytes | 12.0 | 0.0 - 12.0 % | | | + + + + + + | % | 1.0 | 0.0 - 7.0 % | | | | Eosinophils | | | | | + + + + + + | % Basophils | 0.8 | 1.0 % | | | + + + + + + + + | Specimen | + + | Blood specimen | | (specimen) | + + External Lab: PSA, Screen (07/26/2014) + +-------+ + + + | Component | Value | Ref Range | Performed | Pathologist | | | | | At | Signature | + +-------+ + + + | PSA, | 0.402 | | | | | External | | | | | + +-------+ + + + + + | Specimen | + + | Blood specimen | | (specimen) | + + + + | Resulting Agency Comment | + + | [facility] | + + External Lab: TSH (07/26/2014) + +-------+ + + + | Component | Value | Ref Range | Performed | Pathologist | | | | | At | Signature | + +-------+ + + + | TSH, | 1.46 | | | | | External | | | | | + +-------+ + + + + + | Specimen | + + | Blood specimen | | (specimen) | + + + + | Resulting Agency Comment | + + | [facility] | + + Comprehensive Metabolic Panel (07/26/2014) + +-------+ + + + | Component | Value | Ref Range | Performed | Pathologist | | | | | At | Signature | + +-------+ + + + | Na | 138 | mmol/L | [facility] | | [facility] | | | [facility] - | | | | | | LABORATORY | | + +-------+ + + + | K | 3.7 | mmol/L | [facility] | | | [...] +-------+ + + + | CO2 | 24 | mmol/L | [facility] | | | [...] +-------+ + + + | Glucose | 120 | mg/dL | [facility] | | | [...] +-------+ + + + | Total | 6.9 | 6.1 - 8.4 g/dL | [facility] | | | Protein | | | [facility] | | | | | | [facility] | | | | | | [facility] - | | | | | | LABORATORY | | + +-------+ + + + | Bilirubin | 1.0 | mg/dL | [facility] | | | Total | | | [facility] | | | | | | [facility] | | [facility] | | | [facility] - | | | | | | LABORATORY | | + +-------+ + + + | Albumin | 4.5 | 3.5 - 5.0 g/dL | [facility] | | | | | | [facility] | | | | | | [facility] | | | | | | [facility] - | | | | | | LABORATORY | | + +-------+ + + + | Globulin | 2.4 | | [facility] | | | | | | [facility] | | | | | | [facility] | | | | | | [facility] - | | | | | | LABORATORY | | + +-------+ + + + | Albumin/Sandee | 1.9 | | [facility] | | | bulin Ratio | | | [facility] | | | | | | [facility] | | | | | | CENTER - | | | | | | LABORATORY | | + +-------+ + + + | Alkaline | 53 | U/L | [facility] | | | Phosphatase | | | [facility] | | | | | | [facility]ICAL | | | | | | CENTER - | | | | | | LABORATORY | | + +-------+ + + + | Creatine, | 0.87 | | [facility] | | | Serum | | | [facility] | | | | | | [facility]ICAL | | | | | | CENTER - | | | | | | LABORATORY | | + +-------+ + + + | GFR | 91 | | [facility] | | | ESTIMATE | | | [facility] | | | | | | [facility] | | | | | | CENTER - | | | | | | LABORATORY | | + +-------+ + + + | ALT | 29 | U/L | [facility] | | | | | | [facility] | | | | | | [facility] | | | | | | CENTER - | | | | | | LABORATORY | | + +-------+ + + + | AST | 32 | U/L | [facility] | | | [...] + | [facility] | [address] | [place] | [phone] | | [facility] | | [address] | | | - LABORATORY | | | | + + + + + | [facility] | [address] | [place] | | | [facility] | | [address] | | | - LABORATORY | | | | + + + + + External Lab: CBC (07/26/2014) + +-------+ + + + | Component | Value | Ref Range | Performed | Pathologist | | | | | At | Signature | + +-------+ + + + | WBC, | 6.2 | | | | | External | | | | | + +-------+ + + + | HGB, | 16.8 | | | | | External | | | | | + +-------+ + + + | HCT, | 48.7 | | | | | External | | | | | + +-------+ + + + | PLT, | 163 | | | | | External | | | | | + +-------+ + + + + + | Resulting Agency Comment | + + | [facility] | + + External Lab: AST (07/26/2014) + +-------+ + + + | Component | Value | Ref Range | Performed | Pathologist | | | | | At | Signature | + +-------+ + + + | AST, | 32 | | | | | External | | | | | + +-------+ + + + + + | Specimen | + + | Blood specimen | | (specimen) | + + + + | Resulting Agency Comment | + + | [facility] | + + External Lab: ALT (07/26/2014) + +-------+ + + + | Component | Value | Ref Range | Performed | Pathologist | | | | | At | Signature | + +-------+ + + + | ALT, | 29 | | | | | External | | | | | + +-------+ + + + + + | Specimen | + + | Blood specimen | | (specimen) | + + + + | Resulting Agency Comment | + + | [facility] | + + External Lab: Triglycerides (07/26/2014) + +-------+ + + + | Component | Value | Ref Range | Performed | Pathologist | | | | | At | Signature | + +-------+ + + + | Triglycerid | 56 | | | | | es, | | | | | | External | | | | | + +-------+ + + + + + | Specimen | + + | Blood specimen | | (specimen) | + + + + | Resulting Agency Comment | + + | [facility] | + + External Lab: Cholesterol, HDL (07/26/2014) + +-------+ + + + | Component | Value | Ref Range | Performed | Pathologist | | | | | At | Signature | + +-------+ + + + | HDL | 44.3 | | | | | Cholesterol | | | | | | , External | | | | | + +-------+ + + + + + | Specimen | + + | Blood specimen | | (specimen) | + + + + | Resulting Agency Comment | + + | [facility] | + + External Lab: Cholesterol, Total (07/26/2014) + +-------+ + + + | Component | Value | Ref Range | Performed | Pathologist | | | | | At | Signature | + +-------+ + + + | Cholesterol | 163 | | | | | , Total, | | | | | | External | | | | | + +-------+ + + + + + | Specimen | + + | Blood specimen | | (specimen) | + + + + | Resulting Agency Comment | + + | [facility] | + + External Lab: Cholesterol, LDL (07/26/2014) + +-------+ + + + | Component | Value | Ref Range | Performed | Pathologist | | | | | At | Signature | + +-------+ + + + | LDL | 108 | | | | | Cholesterol | | | | | | , Direct, | | | | | | External | | | | | + +-------+ + + + + + | Specimen | + + | Blood specimen | | (specimen) | + + + + | Resulting Agency Comment | + + | [facility] | + + External Lab: eGFR (07/26/2014) + +-------+ + + + | Component | Value | Ref Range | Performed | Pathologist | | | | | At | Signature | + +-------+ + + + | eGFR, | 91 | | | | | External | | | | | + +-------+ + + + | eGFR, | | | | | | | | | | | | [place], | | | | | | External | | | | | + +-------+ + + + + + | Specimen | + + | Blood specimen | | (specimen) | + + + + | Resulting Agency Comment | + + | [facility] | + + External Lab: Creatinine (07/26/2014) + +-------+ + + + | Component | Value | Ref Range | Performed | Pathologist | | | | | At | Signature | + +-------+ + + + | Creatinine, | 0.87 | | | | | External | | | | | + +-------+ + + + + + | Specimen | + + | Blood specimen | | (specimen) | + + + + | Resulting Agency Comment | + + | [facility] | + + documented in this encounter Visit Diagnoses Not on filedocumented in this encounter"
--- OUTSIDE RECORDS SUMMARY | ~2019-10-27 | XMS | Encounter Summary ---
Demographics + + + | Address | [address] | | | [place] [address] | + + + | Home Phone [...] Providers + +------+ + | Care Supplier Diversity Director Name | Role | Phone | [...] | ER [facility]UP | [address] | [address] | | | | | Procedures | [place], | [place], | | | | | [place] | [place] [address] | [place] [address] | | | | | | Phone: | Phone: | | | | | | [phone] | [phone] | | | | | | Fax: | Fax: | | | | | | [phone] | [phone] | +--------+--------+ + + + + Encounter Details +--------+---------+ + + + | Date | Type | Department | Care Team | Description | +--------+---------+ + + + | 02/11/ | Office | [facility] [place] | Sil[place], | Coronary artery | | 2016 | Visit | CARDIOLOGY [address] | Janeen STAFF WEAPONS OFFICER [address] | disease involving | | | | [place], | [place], | wales coronary | | | | [place] [address] | [place] [address] | artery of wales | | | | [phone] | [phone] | heart without angina | | | [...] of non-critical coronary artery d isease involving wales coronary artery of [place] heart without angina pectoris, essential h ypertension, [...] him. He sleeps on 1 pillow at [facility] without any shortness of breath. Overall, he has been doing well otherwise than the [facility] iety. MEDICAL, SURGICAL, AND PERSONAL HISTORY Past [...] Preventative health care Coronary artery disease involving wales coronary artery of [place] heart without angina pectoris Cannabis abuse, daily [...] by mouth every evening 90 tablet 3 [facility] Natural Products (OSTEO BI-FLEX/5-LOXIN ADVANCED PO) Take [...] 3RD DOSE, CALL 911 100 tablet 3 [place]-3 Fatty Acids (SALMON OIL-1000 PO) CAPS, one [...] was found Confirmed by ANGELA MARADIAGA MD ([id number]) on 01/25/2017 6:45:26 AM LAB RESULTS reviewed [...] PLTEX 162 11/05/2016 I reviewed records from [facility] for emergency department visit o n 01/2017 which is summarized in the HPI. Above data and testing is reviewed this visit; testing below is historical data unless othe rwise specified. ASSESSMENT: 1. Essential hypertension with goal blood pressure less than 130/80: A. Today it has been well controlled 110 mmHg. He is in class I of t he [place] 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 On physical examination there are no signs of fluid overload. 2. Non-critical Coronary artery disease involving wales coronary a rtery of wales heart without angina pectoris: A. Normal exercise [...] ventricular arrhythmia performed by Dr. Gambino at [facility] on 01/30/2013. Patient had spontaneous [...] to go back in 3 days to [place] for an attempt of ablation under general [...] a normal stable device function. Estimated [facility] 3.5 years.. 5. Lightheadedness [...] this chart may have been created with [employer] voice recognition software. Occasi onal wrong-word or [...] | | | | | | [place], | | | | | | [place] [address] | | | | | | [phone] | | | | | | | | +--------+ + + + + | 11/20/ | Implant | Cardiology | Daljit Singletary, | Remote Device | | 2019 | Monitor | | [facility] | Interrogation | | | | | [place], | (Primary Dx); | | | | | [place] [address] | Presence of | | | | | [phone] | permanent cardiac | | | | [...] + + | Coronary artery disease involving wales coronary artery of wales heart without | | angina pectoris - Primary | + + | Essential hypertension with goal blood pressure less than 130/80 | + + | Hyperlipidemia, mixed Mixed hyperlipidemia | + + documented in this encounter
--- OUTSIDE RECORDS SUMMARY | ~2019-10-27 | XMS | Encounter Summary ---
Demographics + + + | Address | [address] | | | [place] [address] | + + + | Home Phone [...] Team Providers + +------+ + | Care Before School Babysitter Name | Role | Phone | + [...] | | CARDIOLOGY [address] | [address] | | | | | [place], | [place], | | | | | [place] [address] | [place] [address] | | | | | [phone] | [phone] | | | | | | | [...] | | | | | | [place] [address] | | | | | | [phone] | | | | | | | | +--------+ + + + + | 11/20/ | Implant | Cardiology | Daljit Singletary, | Remote Device | | 2019 | Monitor | | [facility] | Interrogation | | | | | [place], | (Primary Dx); | | | | | [place] [address] | Presence of | | | | | [phone] | permanent cardiac | | | | [...] + | [facility] | [address] | [place] | [phone] | | [facility] | | [address] | | | - LABORATORY | | | | + + + + + | [facility] | [address] | [place] | | | [facility] | | [address] | | | - LABORATORY | | [...] [place]Y [place] | | | | | [facility] | | | | | - LABORATORY | | | | + +---------+ + + documented in this encounter Visit Diagnoses Not on filedocumented in this encounter"
--- OUTSIDE RECORDS SUMMARY | ~2019-10-27 | XMS | Encounter Summary ---
Demographics + + + | Address | [address] | | | [place] [address] | + + + | Home Phone [...] Providers + +------+ + | Care Regulatory Affairs Specialist Name | Role | Phone | + +------+ + | Kirk French MD | PCP | | + +------+ + Encounter Details +--------+ + + + + | Date | Type | Department | Care Team | Description | +--------+ + + + + | 01/25/ | Emergency | [facility] | Donald Callahan, | Strain of lumbar | | 2016 | | MEDICAL CENTER | Russ, DO [address] | paraspinal muscle, | | | | EMERG[facility]Y CENTER | [address] | initial encounter; | | | | [address] | [place], [place] | Left hip pain | | | | [place], [place] | [address] | | | | | [address] | | | | | | [phone] | | | +--------+ + + + [...] + + +---------+ + + | [place]-3 Fatty | CAPS, one capsule by [...] | | | | | | [place] [address] | | | | | | [phone] | | | | | | | | +--------+ + + + + | 11/20/ | Implant | Cardiology | Daljit Singletary, | Remote Device | | 2019 | Monitor | | [place] [facility] | Interrogation | | | | | [place], | (Primary Dx); | | | | | [place] [address] | Presence of | | | | | [phone] | permanent cardiac | | | | [...] Conversion - 07/06/2019 12:12 AM PDT PINA [id number] years MaleXR | | LUMBAR SPINE LIMITED [...]
--- OUTSIDE RECORDS SUMMARY | ~2019-10-27 | XMS | Encounter Summary ---
Demographics + + + | Address | [address] | | | [place] [address] | + + + | Home Phone [...] Providers + +------+ + | Care Distribution Center Associate Name | Role | Phone | + +------+ + PCP | Unavailable | + +------+ + Encounter Details +--------+ + + + + | Date | Type | Department | Care Team | Description | +--------+ + + + + | 08/26/ | Hospital | [facility] | | | | 2009 | Encounter | MED CTR LABORATORY | | | | | | [address] | | | | | | [place] | | | | | | [address] | | | | | | [phone] | | | +--------+ + + + [...] | | | | | | [place] [address] | | | | | | [phone] | | | | | | | | +--------+ + + + + | 11/20/ | Implant | Cardiology | Daljit Singletary, | Remote Device | | 2018 | Monitor | | [facility] | Interrogation | | | | | [place], | (Primary Dx); | | | | | [place] [address] | Presence of | | | | | [phone] | permanent cardiac | | | | [...]
--- OUTSIDE RECORDS SUMMARY | ~2019-10-27 | XMS | Encounter Summary ---
Demographics + + + | Address | [address] [place] [address] | | | [place] [address] | + + + | Home Phone | | + + + | Preferred Language | Unknown | + + + | Marital Status | | + + + | Episcopalian Affiliation | Unknown | + + + [...] [place] | | | | | [address] | | + + + + + Care Team Providers + +------+ + | Care Pesticide Applicator Name | Role | Phone | + [...] | | | | [address] | [place], [place] | | | | | Mailcode: [place] | [address] | | | | | for Health and | [phone] | | | | | [facility] [address] | | | | | | [place], [place] | | | | | | [address] | | | | | | [phone] | | | +--------+ + + + [...]
--- OUTSIDE RECORDS SUMMARY | ~2019-10-27 | XMS | Encounter Summary ---
Demographics + + + | Address | [address] | | | [place] [address] | + + + | Home Phone [...] | | CARDIOLOGY [address] | Janeen LIBRARY SALES CONSULTANT [address] | | | | | [place], | [place], | | | | | [place] [address] | [place] [address] | | | | | [phone] | [phone] | | | | | | | [...] W | | | | | | [place], | | | | | | [place] [address] | | | | | | [phone] | | | | | | | | +--------+ + + + + | 11/20/ | Implant | Cardiology | Daljit Singletary, | Remote Device | | 2018 | Monitor | | MD Chiquis Oro | Interrogation | | | | | [place], | (Primary Dx); | | | | | [place] [address] | Presence of | | | | | [phone] | permanent cardiac | | | | [...]
--- OUTSIDE RECORDS SUMMARY | ~2019-10-27 | XMS | Encounter Summary ---
Demographics + + + | Address | [address] | | | [place] [address] | + + + | Home Phone [...] Team Providers + +------+ + | Care Aerodynamics Professor Name | Role | Phone | [...] | | | | | [place], [place] | (Fax) | | | | | [address] | | | | | | [phone] | | | +--------+ + + + [...] | | | | | | [place] [address] | | | | | | [phone] | | | | | | | | +--------+ + + + + | 11/20/ | Implant | Cardiology | Daljit Singletary, | Remote Device | | 2018 | Monitor | | [facility] | Interrogation | | | | | [place], | (Primary Dx); | | | | | [place] [address] | Presence of | | | | | [phone] | permanent cardiac | | | | [...]
--- OUTSIDE RECORDS SUMMARY | ~2019-10-27 | XMS | Encounter Summary ---
Demographics + + + | Address | [address] | | | [place] [address] | + + + | Home Phone [...] Team Providers + +------+ + | Care Salesperson Stereo Equipment Name | Role | Phone | + [...] + | 06/27/ | Telephone | [facility] | Michael Amanda, | ED Follow-up (s/p | | 2014 | | MEDICINE [place] | DO [address] | [facility]) | | | | [address] | [place] | | | | | [place] | [address] | | | | | [address] | | | | | | [phone] | | | +--------+ + + + [...] | | | | | | [place], | | | | | | [place] [address] | | | | | | [phone] | | | | | | | | +--------+ + + + + | 11/20/ | Implant | Cardiology | Daljit Singletary, | Remote Device | | 2018 | Monitor | | MD [place] [address] | Interrogation | | | | | [place], | (Primary Dx); | | | | | [place] [address] | Presence of | | | | | [phone] | permanent cardiac | | | | [...]
--- OUTSIDE RECORDS SUMMARY | ~2019-10-27 | XMS | Encounter Summary ---
Demographics + + + | Address | [address] | | | [place] [address] | + + + | Home Phone [...] Providers + +------+ + | Care Appeals Representative Name | Role | Phone | [...] + + | 02/15/ | Office | [facility] | Jay Cohn PA | DIDIER (obstructive | | 2012 | Visit | SLEEP DISORDER [address] | [address] | sleep apnea) | | | | [address] [place] [place] | [place] | (Primary Dx) | | | | [place] [address] | [address] | | | | | [phone] | | | +--------+---------+ + + + [...] AM PDTGo to [facility] for replacement equipment including: Nasal pillows [...] pillows obtained from: [facility] [place] pressure is: 13 cm CPAP download shows [...] to go to [facility] [place] to replace his equipment, but it had [...] to go to [facility] in [place] to g et a new mask and filter. He is to work toward wearing his CPAP 100% of the time he is asle ep. I will follow up again in 1 month, sooner prn. Fifteen minutes were spent exos-rd-mcdh, wi th the majority of time spent [...] | | | | | | [place], | | | | | | [place] [address] | | | | | | [phone] | | | | | | | | +--------+ + + + + | 11/20/ | Implant | Cardiology | Daljit Singletary, | Remote Device | | 2019 | Monitor | | [address] [place] | Interrogation | | | | | [place], | (Primary Dx); | | | | | [place] [address] | Presence of | | | | | [phone] | permanent cardiac | | | | [...]
--- OUTSIDE RECORDS SUMMARY | ~2019-10-27 | XMS | Encounter Summary ---
Demographics + + + | Address | [address] [place] [address] | | | [place] [address] | + + + | Home Phone [...] + + + | Author | [facility] | + + + | Organization | [facility] | + + + | Address | Unknown | + + + | Phone | Unavailable | + + + Support + + + + + | Name | Relationship | Address | Phone | + + + + + | Rachel Valencia | ELIEZER | [place] | | | | | [address] | | + + + + + Care Team Providers + +------+ + | Care Billboard Mechanic Name | Role | Phone | [...] 2019 | | Center at [facility] [address] | MD [address] | | | | | [address] | [facility] [place] | | | | | Mailcode: [place] | [address] | | | | | for Health and | [phone] | | | | | [facility] 2 | | | | | | [facility] [place] | | | | | | [address] | | | | | | [phone] | | | +--------+ + + + [...]
--- OUTSIDE RECORDS SUMMARY | ~2019-10-27 | XMS | Encounter Summary ---
Demographics + + + | Address | [address] | | | [place] [address] | + + + | Home Phone [...] Providers + +------+ + | Care Learning Coach Name | Role | Phone | + +------+ + | Kirk French MD | PCP | | + +------+ + Encounter Details +--------+ + + + + | Date | Type | Department | Care Team | Description | +--------+ + + + + | 07/05/ | Hospital | [facility] | Conversion | Acute neck pain | | 2017 | Encounter | [facility] | Transaction, | | | | | [address] | Provider Unknown | | | | | [address] [place], [place] | [phone] | | | | | [address] | | | | | | [phone] | Apolonia Ruano | | | | | | MD Shelly [address] | | | | | | [place]iqu[place] | | | | | | [place], [place] | | | | | | [address] | | | | | | [phone] | | +--------+ + + + + [...] + + + +---------+ + + | [place]-3 Fatty | CAPS, one capsule by | [...] | 11/09/ | Office | Cardiology | [place], | | | 2018 | Visit | | [place] [address] | | | | | | [place], | | | | | | [place] [address] | | | | | | [phone] | | | | | | | | +--------+ + + + + | 11/20/ | Implant | Cardiology | Daljit Singletary, | Remote Device | | 2019 | Monitor | | MD [facility] | Interrogation | | | | | [place], | (Primary Dx); | | | | | [place] [address] | Presence of | | | | | [phone] | permanent cardiac | | | | [...]
--- OUTSIDE RECORDS SUMMARY | ~2019-10-27 | XMS | Encounter Summary ---
Demographics + + + | Address | [address] | | | [place] [address] | + + + | Home Phone [...] Team Providers + +------+ + | Care Parachute Mender Name | Role | Phone | [...] | | | | stenosis | L, [address] | | | | | | Procedures | [address] | | | | | | CT | [address] | | | | | | Myelography | [place], [place] | | | | | | Cervical | [address] | | | | | | Spine | Phone: | | | | | | | [phone] | | | | | | | Fax: | | | | | | | [phone] | | +--------+--------+ + + + + [...] + + | 06/04/ | Hospital | [facility] | Sariah, | Cervical spinal | | 2016 | Encounter | MED CTR [address] | [place]etta Mason [address] | stenosis | | | | [place], | [address] | | | | | [place] [address] | [place] [address] | | | | | [phone] | [phone] | | | | | | | [...] + + +---------+ + + | [place]-3 Fatty | CAPS, one capsule by | [...] | | | | | | [place] [address] | | | | | | [phone] | | | | | | | | +--------+ + + + + | 11/20/ | Implant | Cardiology | Daljit Singletary, | Remote Device | | 2019 | Monitor | | [address] [facility] | Interrogation | | | | | [place], | (Primary Dx); | | | | | [place] [address] | Presence of | | | | | [phone] | permanent cardiac | | | | [...]
--- OUTSIDE RECORDS SUMMARY | ~2019-10-27 | XMS | Encounter Summary ---
Demographics + + + | Address | [address] | | | [place] [address] | + + + | Home Phone [...] Team Providers + +------+ + | Care Guide Winder Name | Role | Phone | [...] Provider Unknown | | | | | [place], [place] | [phone] | | | | | [address] | | | | | | [phone] | | | +--------+ + + + [...] + + + +---------+ + + | [place]-3 Fatty | CAPS, one capsule by | [...] | | | | | | [place] [address] | | | | | | [phone] | | | | | | | | +--------+ + + + + | 11/20/ | Implant | Cardiology | Daljit Singletary, | Remote Device | | 2018 | Monitor | | MD Chiquis Oro | Interrogation | | | | | [place], | (Primary Dx); | | | | | [place] [address] | Presence of | | | | | [phone] | permanent cardiac | | | | [...]
--- OUTSIDE RECORDS SUMMARY | ~2019-10-27 | XMS | Encounter Summary ---
Demographics + + + | Address | [address] | | | [place] [address] | + + + | Home Phone [...] Team Providers + +------+ + | Care Brim Pouncer Machine Operator Name | Role | Phone [...] [address] | | | | | | [place], [place] | (Fax) | | | | | [address] | | | | | | [phone] | | | +--------+ + + + [...] | | | | | | [place] [address] | | | | | | [phone] | | | | | | | | +--------+ + + + + | 11/20/ | Implant | Cardiology | Daljit Singletary, | Remote Device | | 2018 | Monitor | | [address] [facility] | Interrogation | | | | | [place], | (Primary Dx); | | | | | [place] [address] | Presence of | | | | | [phone] | permanent cardiac | | | | [...]
--- OUTSIDE RECORDS SUMMARY | ~2019-10-27 | XMS | Encounter Summary ---
Demographics + + + | Address | [address] | | | [place] [address] | + + + | Home Phone [...] Providers + +------+ + | Care Production Packager Name | Role | Phone | + +------+ + | Kirk French MD | PCP | | + +------+ + Encounter Details +--------+ + + + + | Date | Type | Department | Care Team | Description | +--------+ + + + + | 01/18/ | Hospital | [facility] | Conversion | Diagnosis unknown | | 2017 | Encounter | CONVERSION DE[address] | Transaction, | | | | | [address] | Provider Unknown | | | | | [place], [place] | [phone] | | | | | [address] | | | | | | [phone] | | | +--------+ + + + [...] + + + +---------+ + + | [place]-3 Fatty | CAPS, one capsule by | [...] | | | | | | [place] [address] | | | | | | [phone] | | | | | | | | +--------+ + + + + | 11/20/ | Implant | Cardiology | Daljit Singletary, | Remote Device | | 2019 | Monitor | | MD [address] [facility] | Interrogation | | | | | [place], | (Primary Dx); | | | | | [place] [address] | Presence of | | | | | [phone] | permanent cardiac | | | | [...]
--- OUTSIDE RECORDS SUMMARY | ~2019-10-27 | XMS | Encounter Summary ---
Demographics + + + | Address | [address] | | | [place] [address] | + + + | Home Phone [...] Team Providers + +------+ + | Care Smoke Eater Name | Role | Phone | + [...] + | 12/23/ | Telephone | [facility] | Silvia, | Lab Order (due for | | 2017 | | CARDIOLOGY [address] | Janeen, WATER REGISTRAR [address] | fasting labs) | | | | [place], | [place], | | | | | [place] [address] | [place] [address] | | | | | [phone] | [phone] | | | | | | | [...] [place], | | | | | | [place] [address] | | | | | | [phone] | | | | | | | | +--------+ + + + + | 11/20/ | Implant | Cardiology | Daljit Singletary, | Remote Device | 2018 | Monitor | | [facility] | Interrogation | | | | | [place], | (Primary Dx); | | | | | [place] [address] | Presence of | | | | | [phone] | permanent cardiac | | | | [...]
--- OUTSIDE RECORDS SUMMARY | ~2019-10-27 | XMS | Encounter Summary ---
Demographics + + + | Address | [address] | | | [place] [address] | + + + | Home Phone [...] 2019 | | GASTROENTEROLOGY | MD [address] | | | | | [address] | Jay Crane. ILA | | | | | [address] [place] [address] | [place] [address] | | | | | [address] | | | | | | [phone] | | | +--------+ + + + [...] W | | | | | | [place], | | | | | | [place] [address] | | | | | | [phone] | | | | | | | | +--------+ + + + + | 11/20/ | Implant | Cardiology | Daljit Singletary, | Remote Device | | 2018 | Monitor | | [address] [facility] | Interrogation | | | | | [place], | (Primary Dx); | | | | | [place] [address] | Presence of | | | | | [phone] | permanent cardiac | | | | [...]
--- OUTSIDE RECORDS SUMMARY | ~2019-10-27 | XMS | Encounter Summary ---
Demographics + + + | Address | [address] | | | [place] [address] | + + + | Home Phone [...] Providers + +------+ + | Care Supervisor Wet Room Name | Role | Phone | + [...] type ER | [address] | [address] | | | | | FUP | [place] | [place], | | | | | Procedures | [place], [place] | [place] [address] | | | | | FUP - SUW & | [address] | Phone: | | | | | EVM PT, LAST | Phone: | [phone] | | | | | SEEN | [phone] | Fax: | | | | | 08-24-18 | Fax: | [phone] | | | | | | [phone] | | +--------+ + + + + [...] | | | | CENTER [address] | [address] [place] | (Primary Dx) | | | | [place], [place] | [place] [address] | | | | | [address] | [phone] | | | | | [phone] | | | +--------+ + + + [...] through Care Everywhere.Chest Pain, Unc ertain Cause (Maori)documented in this encounter Medications at Time of [...] W | | | | | | [place], | | | | | | [place] [address] | | | | | | [phone] | | | | | | | | +--------+ + + + + | 11/20/ | Implant | Cardiology | Daljit Singletary, | Remote Device | | 2018 | Monitor | | [address] | Interrogation | | | | | [place], | (Primary Dx); | | | | | [place] [address] | Presence of | | | | | [phone] | permanent cardiac | | | | [...] | | | | ANGELA MARADIAGA MD ([id number]) | | | | | | on [...] | | | | | | [employer] | | | | | [...] [address] | [place] | [phone] | | [facility] | | [address] | | | - LABORATORY | | [...] [address] | [place] | [phone] | | [facility] | | [address] | | | - LABORATORY | | [...] - 1.030 | [facility] | | | [place] | | | [facility] | | [...] | | Urine | | | [facility] | | | | [...] ST. | [address] | [place] | [phone] | | [facility] | | [address] | | | - LABORATORY | | [...] 2.0 | 1.8 - 2.5 mg/dL | [facility] | | | | | | ST. [...] + | [facility]. | [address] | [place] | [phone] | | [facility] | | [address] | | | - LABORATORY | | [...] [address] | [place] | [phone] | | [facility] | | [address] | | | - LABORATORY | | [...] | | | | | | [employer] | | | | | [...] [address] | [place] | [phone] | | [facility] | | [address] | | | - LABORATORY | | [...] 13 | 7 - 18 mg/dL | [facility] | | | | | | [facility] | | | | | | MEDICAL | | | | | | CENTER - | | | | | | LABORATORY | | + + + + + + | Creatinine | 0.96 | 0.60 - 1.30 | [facility] | | | | | mg/dL | [facility] | | | | | | MEDICAL | | | | | | CENTER - | | | | | | LABORATORY | | + + + + + + | eGFR if not | >60Comment: GLOMERULAR | >=60 | [facility] | | | | FILTRATION | mL/min/1.73m2 | [facility] | | | TAJIK | RATE,ESTIMATED | | MEDICAL | | | | mL/min/1.25q7Zmtw than | | CENTER - | | [...] ST. | [address] | [place] | [phone] | | [facility] | | [address] | | | - LABORATORY | | [...] | | Neutrophils | | | [facility] | | | | | | MEDICAL [...] ST. | [address] | [place] | [phone] | | [facility] | | [address] | | | - LABORATORY | | [...] | | | | ANGELA MARADIAGA MD ([id number]) | | | | | | on [...]
--- OUTSIDE RECORDS SUMMARY | ~2019-10-27 | XMS | Encounter Summary ---
Demographics + + + | Address | [address] | | | [place] [address] | + + + | Home Phone [...] Providers + +------+ + | Care Brick Loader Name | Role | Phone | [...] + + | 01/25/ | Office | [facility] | Daljit Singletary, | Other chest pain | | 2012 | Visit | CARDIOLOGY [address] | [address] [place] | (Primary Dx); PVC's | | | | [place], | [place], | (premature | | | | [place] [address] | [place] [address] | ventricular | | | | [phone] | [phone] | contractions) | | | | | [...] note, lorraine painting has appointment to see control specialist for PVCs ablations consultation on January [...] tablet Take 1,000 mg by mouth Daily. [place]-3 Fatty Acids (SALMON OIL-1000 PO) CAPS, one [...] tablet Take 1,000 mg by mouth Daily. [place]-3 Fatty Acids (SALMON OIL-1000 PO) CAPS, one [...] | | | | | | [place] [address] | | | | | | [phone] | | | | | | | | +--------+ + + + + | 11/20/ | Implant | Cardiology | Daljit Singletary, | Remote Device | | 2018 | Monitor | | [facility] | Interrogation | | | | | [place], | (Primary Dx); | | | | | [place] [address] | Presence of | | | | | [phone] | permanent cardiac | | | | [...]
--- OUTSIDE RECORDS SUMMARY | ~2019-10-27 | XMS | Encounter Summary ---
Demographics + + + | Address | [address] | | | [place] [address] | + + + | Home Phone [...] + +------+ + | Care Director Of Personnel Name | Role | Phone | + +------+ + PCP | Unavailable | + +------+ + Encounter Details +--------+ + + + + | Date | Type | Department | Care Team | Description | +--------+ + + + + | 06/12/ | [facility] | [facility] | Hunter Antunez, | | | 2007 - | Encounter | MED CTR ICU [address] | MD [address] | | | | | [place], | [place] | | | 06/15/ | | [place] [address] | [address] | | | 2007 | | [phone] | | | +--------+ + + + [...] | | | | | | [place] [address] | | | | | | [phone] | | | | | | | | +--------+ + + + + | 11/20/ | Implant | Cardiology | Daljit Snigletary, | Remote Device | | 2019 | Monitor | | MD Chiquis Oro | Interrogation | | | | | [place], | (Primary Dx); | | | | | [place] [address] | Presence of | | | | | [phone] | permanent cardiac | | | | [...]
--- OUTSIDE RECORDS SUMMARY | ~2019-10-27 | XMS | Encounter Summary ---
Demographics + + + | Address | [address] | | | [place] [address] | + + + | Home Phone [...] Providers + +------+ + | Care Pipe Line Repairer Name | Role | Phone | [...] + + | 08/24/ | Office | [facility] | Silvia, | Ascending thoracic | | 2018 | Visit | CARDIOLOGY [address] | PAR[place] [address] | aortic aneurysm | | | | [place], | [place], | ([facility]) (Primary Dx); | | | | [place] [address] | [place] [address] | Syncope, unspecified | | | | [phone] | [phone] | syncope type; | | | | | | Hypertension, | | | | | | unspecified type; | | | | | | Coronary artery | | | | | | disease involving | | | | | | lower sioux coronary | | | | | | artery of lower sioux | | | | | | heart [...] of non-critical coronary artery d isease involving lower sioux coronary artery of lower sioux heart without angina pectoris, essential h ypertension, [...] Preventative health care Coronary artery disease involving lower sioux coronary artery of lower sioux heart without angina pectoris Cannabis abuse, daily [...] by mouth Daily. 90 tabl et 1 [facility] Natural Products (OSTEO BI-FLEX/5-LOXIN ADVANCED PO) Take [...] 3RD DOSE, CALL 911 100 tablet 3 [place]-3 Fatty Acids (SALMON OIL-1000 PO) CAPS, one capsule by mouth daily twice daily ONE TOUCH DELICA LANCETS [facility] Check glucose as [...] now present Confirmed by HIREN WINKLER, ANGELA ([id number]) on 07/28/2018 6:03:35 AM LAB RESULTS reviewed during visit today primarily from [facility]: LIPID Lab Results Component Value [...] PLTEX 157 04/11/2018 I reviewed records from [facility] for emergency department visit o [...] to go back in 3 days to [place] for an attempt of ablation under general [...] He is in class II of the [employer] f unctional class. There are [...] subsided. 2. Non-critical Coronary artery disease involving lower sioux coronary artery of lower sioux heart [facility] angina pectoris: A. Normal exercise [...] cannot completely be ruled out . [facility] 12/25/13, shows non critical coronary artery [...] this chart may have been created with [employer] voice recognition software. Occasi onal wrong-word or [...] W | | | | | | [place], | | | | | | [place] [address] | | | | | | [phone] | | | | | | | | +--------+ + + + + | 11/20/ | Implant | Cardiology | Daljit Singletary, | Remote Device | | 2018 | Monitor | | [address] [place] | Interrogation | | | | | [place], | (Primary Dx); | | | | | [place] [address] | Presence of | | | | | [phone] | permanent cardiac | | | | [...] + | Coronary artery disease involving lower sioux coronary artery of lower sioux heart without | | angina pectoris | [...]
--- OUTSIDE RECORDS SUMMARY | ~2019-10-27 | XMS | Encounter Summary ---
Demographics + + + | Address | [address] | | | [place] [address] | + + + | Home Phone [...] Providers + +------+ + | Care Steam Conditioning Operator Name | Role | Phone | [...] 2012 | | CARDIOLOGY [address] | ASSISTED LIVING CARE MANAGER [address] [place] | | | | | [place], | [place] [facility] [place] | | | | | [place] [address] | [address] | | | | | [phone] | | | +--------+ + + + [...] | | | | | | [place] [address] | | | | | | [phone] | | | | | | | | +--------+ + + + + | 11/20/ | Implant | Cardiology | Daljit Singletary, | Remote Device | | 2018 | Monitor | | MD Chiquis Oro | Interrogation | | | | | [place], | (Primary Dx); | | | | | [place] [address] | Presence of | | | | | [phone] | permanent cardiac | | | | [...]
--- OUTSIDE RECORDS SUMMARY | ~2019-10-27 | XMS | Encounter Summary ---
Demographics + + + | Address | [address] | | | [place] [address] | + + + | Home Phone [...] Team Providers + +------+ + | Care Requisition Approver Name | Role | Phone | + [...] [address] | | | | | | [place], [place] | (Fax) | | | | | [address] | | | | | | [phone] | | | +--------+ + + + [...] | | | | | | [place] [address] | | | | | | [phone] | | | | | | | | +--------+ + + + + | 11/20/ | Implant | Cardiology | Daljit Singletary, | Remote Device | | 2018 | Monitor | | [address] [facility] | Interrogation | | | | | [place], | (Primary Dx); | | | | | [place] [address] | Presence of | | | | | [phone] | permanent cardiac | | | | [...]
--- OUTSIDE RECORDS SUMMARY | ~2019-10-27 | XMS | Encounter Summary ---
Demographics + + + | Address | [address] | | | [place] [address] | + + + | Home Phone [...] Team Providers + +------+ + | Care Corsage Maker Name | Role | Phone | [...] + + | 09/09/ | Office | [facility] | Michael Amanda, | Hyperlipidemia; | | 2011 | Visit | [facility] [place] | DO [address] | Hypertension; | | | | [address] | [place] | Chronic pain | | | | [place] | [address] | syndrome; Neck pain, | | | | [address] | | chronic | | | | [phone] | | | +--------+---------+ + + + [...] damage history No ASHD (either angina; prior RI; prior CABG) No cardiac end organ damage [...] slowly cutting back. Pt was going through [facility] for opiate medications prior to [...] W | | | | | | [place], | | | | | | [place] [address] | | | | | | [phone] | | | | | | | | +--------+ + + + + | 11/20/ | Implant | Cardiology | Daljit Singletary, | Remote Device | | 2019 | Monitor | | MD [address] [facility] | Interrogation | | | | | [place], | (Primary Dx); | | | | | [place] [address] | Presence of | | | | | [phone] | permanent cardiac | | | | [...]
--- OUTSIDE RECORDS SUMMARY | ~2019-10-27 | XMS | Encounter Summary ---
Demographics + + + | Address | [address] | | | [place] [address] | + + + | Home Phone [...] Providers + +------+ + | Care Stamp Mounter Name | Role | Phone | + [...] + | 12/21/ | Office | [facility] | [place], | Chest pain (Primary | | 2013 | Visit | CARDIOLOGY [address] | [place] [address] | Dx); Symptomatic | | | | [place], | [place], | PVCs; | | | | [place] [address] | [place] [address] | Hyperlipidemia; | | | | [phone] | [phone] | Hypertension; | | | | | [...] this time to see a specialist in [place] and he was to follow up with [...] MOUTH EVERY DAY 30 table t 5 [place]-3 Fatty Acids (SALMON OIL-1000 PO) CAPS, one [...] ventricular arrhythmia performed by Dr. Gambino at [facility] on 01/30/2013. Patient had spontaneous PVCs [...] to go back in 3 days to [place] for an attempt of ablation under general [...] tolic function, LVEF 65 to 70%. B. PowerCard DDD permanent pacemaker implantation on 06/14/09 by [...] made to ensure accuracy; however, inadvertent computerized cigarette paper tester errors may be pre sent. documented in this encounter Plan of Treatment +--------+ + + + + | Date | Type | Specialty | Care Team | Description | +--------+ + + + + | 11/09/ | Office | Cardiology | [place], | | | 2019 | Visit | | [place] [address] | | | | | | [place], | | | | | | [place] [address] | | | | | | [phone] | | | | | | | | +--------+ + + + + | 11/20/ | Implant | Cardiology | Daljit Singletary, | Remote Device | | 2019 | Monitor | | [address] [place] | Interrogation | | | | | [place], | (Primary Dx); | | | | | [place] [address] | Presence of | | | | | [phone] | permanent cardiac | | | | [...] of unspecified type of vessel, | | stockbridge or graft | + + documented in this encounter
--- OUTSIDE RECORDS SUMMARY | ~2019-10-27 | XMS | Encounter Summary ---
Demographics + + + | Address | [address] [place] [address] | | | [place] [address] | + + + | Home Phone [...] + + | Author | [facility] | + + + | Organization | [facility] | + + + | Address | Unknown | + + + | Phone | Unavailable | + + + Support + + + + + | Name | Relationship | Address | Phone | + + + + + | Rachel Valencia | ELIEZER | [place] | | | | | [address] | | + + + + + Care Team Providers + +------+ + | Care Office Clinician Name | Role | Phone | [...] | | | | | Unintentiona | [place], [place] | | | | | | l weight | [address] | | | | | | loss | Phone: | | | | | | Procedures | [phone] | | | | | | CONSULT TO | Fax: | | | | | | NON - IVETTE | [phone] | | | | | | PROVIDER [...] Center at [facility] [address] | MD [address] | normal, recommend | | | | [address] | [place], [place] | hyoscyamine) | | | | Mailcode: [place] | [address] | | | | | for Health and | [phone] | | | | | [facility], [facility] [address] | | | | | | [place], [place] | | | | | | [address] | | | | | | [phone] | | | +--------+ + + + [...]
--- OUTSIDE RECORDS SUMMARY | ~2019-10-27 | XMS | Encounter Summary ---
Demographics + + + | Address | [address] | | | [place] [address] | + + + | Home Phone [...] Team Providers + +------+ + | Care Ancillary Services Manager Therapy Name | Role | Phone | + +------+ + PCP | Unavailable | + +------+ + Encounter Details +--------+ + + + + | Date | Type | Department | Care Team | Description | +--------+ + + + + | 01/15/ | [facility] | [facility] | Emmanuel Daniel MD | | | 1994 | Encounter | MED CTR GENERIC OP | [address] | | | | | CONV DEPT [address] | [address] | | | | | [place], | [address] | | | | | [place] [address] | | | | | | [phone] | | | +--------+ + + + [...] W | | | | | | [place], | | | | | | [place] [address] | | | | | | [phone] | | | | | | | | +--------+ + + + + | 11/20/ | Implant | Cardiology | Daljit Singletary, | Remote Device | | 2019 | Monitor | | MD [address] | Interrogation | | | | | [place], | (Primary Dx); | | | | | [place] [address] | Presence of | | | | | [phone] | permanent cardiac | | | | [...]
--- OUTSIDE RECORDS SUMMARY | ~2019-10-27 | XMS | Encounter Summary ---
Demographics + + + | Address | [address] | | | [place] [address] | + + + | Home Phone [...] Team Providers + +------+ + | Care Street Flusher Driver Name | Role | Phone | + +------+ + PCP | Unavailable | + +------+ + Encounter Details +--------+ + + + + | Date | Type | Department | Care Team | Description | +--------+ + + + + | 01/20/ | [facility] | [facility] | Geri Angel, | | | 2009 | Encounter | MED CTR GENERIC OP | AUTOMATIC VULCANIZING LEAD OPERATOR [address] [place] | | | | | CONV DEPT [address] | [place] | | | | | [place], | [address] | | | | | [place] [address] | | | | | | [phone] | | | +--------+ + + + [...] W | | | | | | [place], | | | | | | [place] [address] | | | | | | [phone] | | | | | | | | +--------+ + + + + | 11/20/ | Implant | Cardiology | Daljit Singletary, | Remote Device | | 2019 | Monitor | | MD [address] | Interrogation | | | | | [place], | (Primary Dx); | | | | | [place] [address] | Presence of | | | | | [phone] | permanent cardiac | | | | [...]
--- OUTSIDE RECORDS SUMMARY | ~2019-10-27 | XMS | Encounter Summary ---
Demographics + + + | Address | [address] | | | [place] [address] | + + + | Home Phone [...] [address] | | | | | [place], [place] | [address] | | | | | [address] | [place] [address] | | | | | [phone] | [phone] | | | | | | | [...] W | | | | | | [place], | | | | | | [place] [address] | | | | | | [phone] | | | | | | | | +--------+ + + + + | 11/20/ | Implant | Cardiology | Daljit Singletary, | Remote Device | | 2018 | Monitor | | [address] | Interrogation | | | | | [place], | (Primary Dx); | | | | | [place] [address] | Presence of | | | | | [phone] | permanent cardiac | | | | [...]
--- OUTSIDE RECORDS SUMMARY | ~2019-10-27 | XMS | Encounter Summary ---
Demographics + + + | Address | [address] | | | [place] [address] | + + + | Home Phone [...] | + + +---------+ + | Maria Isabelcehlo Sanchez | ECON | Unknown | | + + +---------+ + Care Team Providers + +------+ + | Care Polisher Brass Name | Role | Phone | + [...] 2019 | | GASTROENTEROLOGY | [address] [place] | | | | | [address] | [address] [place], [place] | | | | | [address] [place], [place] | [address] | | | | | [address] | | | | | | [phone] | | | +--------+ + + + [...] | | | | | | [place], | | | | | | [place] [address] | | | | | | [phone] | | | | | | | | +--------+ + + + + | 11/20/ | Implant | Cardiology | Daljit Singletary, | Remote Device | | 2019 | Monitor | | [address] | Interrogation | | | | | [place], | (Primary Dx); | | | | | [place] [address] | Presence of | | | | | [phone] | permanent cardiac | | | | [...]
--- OUTSIDE RECORDS SUMMARY | ~2019-10-27 | XMS | Encounter Summary ---
Demographics + + + | Address | [address] | | | [place] [address] | + + + | Home Phone [...] Team Providers + +------+ + | Care Leg Breaker Name | Role | Phone | + +------+ + | Kirk French MD | PCP | | + +------+ + Encounter Details +--------+---------+ + + + | Date | Type | Department | Care Team | Description | +--------+---------+ + + + | 12/24/ | Surgery | [facility] | Emmanuel Daniel MD | EGD | | 2018 | | MED CTR MP INTRA OP | [address] [place] | | | | | [address] | [address] [place], [place] | | | | | [place], [place] | [address] | | | | | [address] | | | | | | [phone] | | | +--------+---------+ + + + [...] + + + +---------+ + + | [place]-3 Fatty | CAPS, one capsule by | [...] | | | | | | [place] [address] | | | | | | [phone] | | | | | | | | +--------+ + + + + | 11/20/ | Implant | Cardiology | Daljit Singletary, | Remote Device | | 2019 | Monitor | | [address] [facility] | Interrogation | | | | | [place], | (Primary Dx); | | | | | [place] [address] | Presence of | | | | | [phone] | permanent cardiac | | | | [...] + | Performed at: 01 - [address] [place] [address], | REFERENCE LAB | | [place], [place] [id number] Cigarette Tipper: William Andrew MD, Phone: | ARSH - KINA | | [phone] | | + + + + + + + + | Performing | Address | City/State/Zipcode | Phone Number | | Organization | | | | + + + + + | REFERENCE LAB | [address] | [place] [address] | [phone] | | [facility] - K[facility] | [facility] | | | + + + + [...] [address] | [place] | [phone] | | [facility] | | [address] | | | - LABORATORY | | [...] | | Aeromonas, Plesiomonas, | | [facility] | | | | E. coli [...] [address] | [place] | [phone] | | [facility] | | [address] | | | - LABORATORY | | [...] [address] | [place] | [phone] | | [facility] | | [address] | | | - LABORATORY | | [...] + + | Performed at: 01 - [facility] [address], | REFERENCE LAB | | [place], [place] [id number] Cigarette Tipper: William Andrew MD, Phone: | ARSH - KINA | | [phone] | | + + + + + + + + | Performing | Address | City/State/Zipcode | Phone Number | | Organization | | | | + + + + + | REFERENCE LAB | [address] | [place] [address] | [phone] | | [facility] - K[facility] | [facility] | | | + + + [...] + | [facility] | [address] | [place] | [phone] | | [facility] | | [address] | | | - LABORATORY | | [...] [address] | [place] | [phone] | | [facility] | | [address] | | | - LABORATORY | | [...] | | dium | | | [facility] | | | Antigen | | [...] [address] | [place] | [phone] | | [facility] | | [address] | | | - LABORATORY | | [...] [address] | [place] | [phone] | | [facility] | | [address] | | | - LABORATORY | | [...] [address] | [place] | [phone] | | [facility] | | [address] | | | - LABORATORY | | | | + + + + + EGD (12/24/2017 1:19 PM PST) + + | Specimen | + + | | + + + + -+ | Narrative | Performed At | + + -+ | | [facility] | | GastroenterologyPatient Name: Moe SanchezKane Date: 12/24/2017 | [facility] | | 1:19 PMMRN: [id number] #: [id number] of : | | | 1960Admit Type: AmbulatoryAge: 57Room: [facility] 01Gender: MaleNote | | | Status: FinalizedAttending MD: Emmanuel Daniel , [facility]cedure: | | | Upper GI endoscopyIndications: Diarrhea, Weight | | | lossProviders: Emmanuel Daniel MD, Maria Isabel Morris RN, | | | Kim Hicks, Rotogravure Press Operator, Jarett | | | Sapna Barakat MD [...] the anesthesiologist and | | | the anesthesia technician in the endoscopy suite. Mental Status [...] PMScope Out: 1:31:13 PM | | | [facility], [address] [place] [address] | | | [place] [address] | | | - Discharge patient to [...] |Scope Out: 1:31:13 PM | | | [facility], [address], [place] | | | [address] | | + + -+ + +---------+ [...] 12/24/2017 | [facility] | | 1:17 PMMRN: [id number] #: [id number] of : | | | 8Admit Type: AmbulatoryAge: 57Room: [facility] 01Gender: MaleNote | | | Status: FinalizedAttending MD: Emmanuel Daniel , [facility]cedure: | | | ColonoscopyIndications: Clinically significant diarrhea of | | | unexplained originProviders: Emmanuel Daniel MD, Maria Isabel | | | Arturo RN, Kim Hicks, Rotogravure Press Operator, | | | Jarett Barakat MD [...] | | | the anesthesiologist and the anesthesia technician in the endoscopy suite. | | [...] Scope In: 1:32:55 PMScope Out: 1:48:57 PM [facility] | | | [facility], [address] [place] [address] | | | [phone] | | | - Await pathology results. [...] |Scope Out: 1:48:57 PM | | | [facility], [address] [place] [address] | | | [address] | | + + -+ + +---------+ [...] | colonic mucosa with focal adenomatous change. CLR:cox north:C2NR | | | GROSS DESCRIPTION: Received in [...] | | cm, submitted, all in (D1). ka:CLR:cox north ADDITIONAL NOTES: | | | Immunohistochemical studies were performed on this case with the | | | appropriate positive controls that react as expected. This test was | | | developed and its performance characteristics determined by [facility] | | | [employer]. It has not been cleared or approved by the U.S. Food | | | and Drug Administration. The FDA has determined that such clearance | | | or approval is not necessary. This test is used for clinical | | | purposes. It should not be regarded as investigational or for | | | research. [facility] is certified under the Clinical | | | Laboratory Improvement Amendments of 1988 (CLIA) as qualified to | | | perform high complexity clinical laboratory testing. This assay | | | has not been validated for specimens that have been decalcified. | | | PERFORMING LABORATORY: Tissue processing and slide preparation were | | | performed by [facility], [address], [facility] | | | [place] [address] (Race Car Mechanic: Evan Frausto M.D. CLIA#: | | | [id number]). Professional interpretation was performed by [facility] | | | [employer], [address], [place] [address] | | | (Race Car Mechanic: Evan Frausto M.D.; CLIA#: [id number]). | | | Diagnostician: Rafael Bales MD Pathologist Electronically | | | Signed 12/28/2017 | | + + + + +---------+ + + | Performing | Address | City/State/[facility] Cliniccode | Phone Number | | Organization [...]
--- OUTSIDE RECORDS SUMMARY | ~2019-10-27 | XMS | Encounter Summary ---
Demographics + + + | Address | [address] | | | [place] [address] | + + + | Home Phone [...] Team Providers + +------+ + | Care Internal Carver Name | Role | Phone | [...] | CARDIOLOGY [address] | MD [address] [place] | | | | | [place], | [place], | | | | | [place] [address] | [place] [address] | | | | | [phone] | [phone] | | | | | | | [...] | | | | | | [place] [address] | | | | | | [phone] | | | | | | | | +--------+ + + + + | 11/20/ | Implant | Cardiology | Daljit Singletary, | Remote Device | | 2019 | Monitor | | MD [address] [place] | Interrogation | | | | | [address] [place], | (Primary Dx); | | | | | [place] [address] | Presence of | | | | | [phone] | permanent cardiac | | | | [...]
--- OUTSIDE RECORDS SUMMARY | ~2019-10-27 | XMS | Encounter Summary ---
Demographics + + + | Address | [address] | | | [place] [address] | + + + | Home Phone [...] Providers + +------+ + | Care Traveling Crane Operator Name | Role | Phone | + +------+ + | Kirk French MD | PCP | | + +------+ + Encounter Details +--------+ + + + + | Date | Type | Department | Care Team | Description | +--------+ + + + + | 12/24/ | Anesthesia | [facility] | Jarett Barakat | | | 2018 | Event | MED CTR MP INTRA OP | P, MD [address] | | | | | [address] | [place], [place] | | | | | [place], [place] | [address] | | | | | [address] | [phone] | | | | | [phone] | | | | | | | Arthur Wesley, | | | | | | [address] | | | | | | [place], [place] | | | | | | [address] | | | | | | | [...] 12/24/17 1435 by | | eral | [id number] catheter system; | Desmond Teresa RN | [...] W | | | | | | [place], | | | | | | [place] [address] | | | | | | [phone] | | | | | | | | +--------+ + + + + | 11/20/ | Implant | Cardiology | Daljit Singletary, | Remote Device | | 2018 | Monitor | | [facility] | Interrogation | | | | | [place], | (Primary Dx); | | | | | [place] [address] | Presence of | | | | | [phone] | permanent cardiac | | | | [...]
--- OUTSIDE RECORDS SUMMARY | ~2019-10-27 | XMS | Encounter Summary ---
Demographics + + + | Address | [address] | | | [place] [address] | + + + | Home Phone [...] Team Providers + +------+ + | Care Asbestos Wire Finisher Name | Role | Phone | [...] Provider Unknown | | | | | [place], [place] | [phone] | | | | | [address] | | | | | | [phone] | | | +--------+ + + + [...] + + + +---------+ + + | [place]-3 Fatty | CAPS, one capsule by | [...] | 11/09/ | Office | Cardiology | [place], | | | 2018 | Visit | | [place] [address] | | | | | | [place], | | | | | | [place] [address] | | | | | | [phone] | | | | | | | | +--------+ + + + + | 11/20/ | Implant | Cardiology | Daljit Singletary, | Remote Device | | 2019 | Monitor | | [address] [facility] | Interrogation | | | | | [place], | (Primary Dx); | | | | | [place] [address] | Presence of | | | | | [phone] | permanent cardiac | | | | [...]
--- OUTSIDE RECORDS SUMMARY | ~2019-10-27 | XMS | Encounter Summary ---
Demographics + + + | Address | [address] | | | [place] [address] | + + + | Home Phone [...] + +------+ + | Care Director Of Research Center Name | Role | Phone | + +------+ + PCP | Unavailable | + +------+ + Encounter Details +--------+ + + + + | Date | Type | Department | Care Team | Description | +--------+ + + + + | 11/05/ | [facility] | [facility] | Naresh Mckeon | | | 2009 | Encounter | MED CTR SLEEP | MD Chaya [address] | | | | | CENTER [address] | [place] | | | | | [place] | [place] [address] | | | | | [address] | [phone] | | | | | [phone] | | | +--------+ + + + [...] | | | | | | [place] [address] | | | | | | [phone] | | | | | | | | +--------+ + + + + | 11/20/ | Implant | Cardiology | Daljit Singletary, | Remote Device | | 2019 | Monitor | | MD [address] | Interrogation | | | | | [place], | (Primary Dx); | | | | | [place] [address] | Presence of | | | | | [phone] | permanent cardiac | | | | [...]
--- OUTSIDE RECORDS SUMMARY | ~2019-10-27 | XMS | Encounter Summary ---
Demographics + + + | Address | [address] | | | [place] [address] | + + + | Home Phone [...] Providers + +------+ + | Care Entry Examiner Name | Role | Phone | [...] [address] | | | | | [place], | [place], | | | | | [place] [address] | [place] [address] | | | | | [phone] | [phone] | | | | | | | [...] | | | | | | [place] [address] | | | | | | [phone] | | | | | | | | +--------+ + + + + | 11/20/ | Implant | Cardiology | Daljit Singletary, | Remote Device | | 2018 | Monitor | | MD [address] [place] [address] | Interrogation | | | | | [address] [place], | (Primary Dx); | | | | | [place] [address] | Presence of | | | | | [phone] | permanent cardiac | | | | [...]
--- OUTSIDE RECORDS SUMMARY | ~2019-10-27 | XMS | Encounter Summary ---
Demographics + + + | Address | [address] | | | [place] [address] | + + + | Home Phone [...] + +------+ + | Care Distribution Center Assistant Name | Role | Phone | [...] [address] | | | | | [place], | [place], | | | | | [place] [address] | [place] [address] | | | | | [phone] | [phone] | | | | | | | [...] | 2018 | Visit | | PARISA [address] | | | | | | [place], | | | | | | [place] [address] | | | | | | [phone] | | | | | | | | +--------+ + + + + | 11/20/ | Implant | Cardiology | Daljit Singletary, | Remote Device | | 2018 | Monitor | | [address] | Interrogation | | | | | [place], | (Primary Dx); | | | | | [place] [address] | Presence of | | | | | [phone] | permanent cardiac | | | | [...]
--- OUTSIDE RECORDS SUMMARY | ~2019-10-27 | XMS | Encounter Summary ---
Demographics + + + | Address | [address] | | | [place] [address] | + + + | Home Phone [...] Providers + +------+ + | Care Automatic Spinning Lathe Operator Name | Role | Phone | [...] | | | | [place] | [address] | | | | | [address] | | | | | | [phone] | | | +--------+ + + + [...] | 2018 | Visit | | [address] | | | | | | [place], | | | | | | [place] [address] | | | | | | [phone] | | | | | | | | +--------+ + + + + | 11/20/ | Implant | Cardiology | Daljit Singletary, | Remote Device | | 2018 | Monitor | | MD [address] | Interrogation | | | | | [place], | (Primary Dx); | | | | | [place] [address] | Presence of | | | | | [phone] | permanent cardiac | | | | [...]
--- OUTSIDE RECORDS SUMMARY | ~2019-10-27 | XMS | Encounter Summary ---
Demographics + + + | Address | [address] | | | [place] [address] | + + + | Home Phone [...] Team Providers + +------+ + | Care Primer Press Operator Name | Role | Phone [...] | | | | exertion | | [address] [place] | | | | | Chest pain | | [place], [place] | | | | | on exertion | | [address] | | | | | | | Phone: | | | | | | | [phone] | | | | | | | Fax: | | | | | | | [phone] | +--------+--------+ + + + + Encounter Details +--------+ + + + + | Date | Type | Department | Care Team | Description | +--------+ + + + + | 04/27/ | Emergency | [facility] | Martell Hart | Chest pain on | | 2014 - | | [facility] | Sanjay Palacios MD | exertion (Primary | | | | [address] [place] | [address] | Dx); Dyspnea on | | 03/20/ | | [place] [address] | [place] | exertion; Essential | | 2014 | | [phone] | [address] | hypertension; Acute | | | | | | chest pain; | | | | | Parth Kraft, | Dizziness, | | | | | [address] | nonspecific; Mixed | | | | | [place] | anxiety depressive | | | | | [address] | disorder; PUD | | | | | [phone] | (peptic ulcer | | | | [...] might be different f rom the original. [facility] DISCHARGE SUMMARY Pt. Name/Age/: Moe [...] 911 aka: NITROSTAT ONE TOUCH DELICA LANCETS [facility] Check glucose as needed for hypoglycemia OSTEO [...] Daily. to reduce urinary frequency - Lot #[id number], exp 07/2016 aka: RAPAFLO UNCODED MEDICATION - [...] DISCHARGE INSTRUCTIONS: Follow-up Information Follow up with Kikr French MD In 1 week. Specialty: Internal Medicine Why: For hospital follow up Contact information: [address] [address] Call PARISA Russell. Specialty: Nurse Practitioner Why: As needed Contact information: [address] [place] [address] Condition: Patient being discharged with condition improved. Diet: Heart healthy, avoid acidic drinks and foods, spicy foods, too much coffee. Greater than 30 minutes were spent on discharge and coordination of post-hospital care. Electronically signed by: Thierry Fregoso DO, 03/20/2015 11:22 [facility] Portions of this chart may have been created with [employer] voice recognition software. Occasi onal wrong-word or [...] afford the prescribed medication, you can try rdaq-sqq-ppnvurs acid blockers, such as Pepcid AC, Tagamet, [...] or as directed by your healthcare provider [phone] [employer]. [address] [place] [address]. All righ ts reserved. This information is [...] + + + +---------+ + + | [place]-3 Fatty | CAPS, one capsule by | [...] | | | | | | | #[id number], exp 07/2016 | | | | | [...] DO - 03/19/2015 10:[address] [facility] PROGRESS NOTE Patient: Moe Sanchez : 1960: Age: 55 y.o. MedRec: [id number] PCP: Kirk French Admission date: 03/18/2015 Hospital [...] 1708 03/18/15 1528 TROPONINI <0.01 <0.01 0.01 [facility] E[facility] REPORT STUDY DATE: 03/19/2015 PATIENT NAME: [...] changes. No results for input(s): PHART, PO2ART, VHN3UKE, ONS5BHU, BEART, Q2IKXXNO in the last 168 h ours. No results for input(s): SPECSOURCE, PHPOCB, HCO3, TCO2, BEART, BE, TLPY8BMY in the last 16 8 hours. Invalid input(s): YVKDQ4AY, CJGG6MR Point of care glucose: No results for [...] minutes today. Thierry Fregoso DO 03/19/2015 22:09 [facility] Portions of this chart may have been created with [employer]ion [employer] voice recognition software. Occasi onal wrong-word or sound-alike substitutions may have occurred due to the inherent granger itations of voice recognition software. Please read the chart carefully and recognize, using context, where these substitutions have occurred Belén Cho RN - 03/19/2015 11:03 AM [id number] Report given to Marlen morejon who is [...] W | | | | | | [address] [place], | | | | | | [place] [address] | | | | | | [phone] | | | | | | | | +--------+ + + + + | 11/20/ | Implant | Cardiology | Daljit Singletary, | Remote Device | | 2018 | Monitor | | [facility] | Interrogation | | | | | [place], | (Primary Dx); | | | | | [place] [address] | Presence of | | | | | [phone] | permanent cardiac | | | | [...] Performed At | + + + | [facility]PORT | | | STUDY DATE: [...] | | Signed by: Daljit Singletary MD [facility] 03/19/2015 15:44 | | | Public Health Technologist: Dewey Valdez RDMS | | + + [...] | | | | | | [employer] | | | | | [...] [address] | [place] | [phone] | | [facility] | | [address] | | | - LABORATORY | | [...] | mL/min/1.73m2 | MICHELLE | | | SAMMARINESE | RATE,ESTIMATED | | MEDICAL | | | | mL/min/1.81l1Eilr than | | CENTER - | | [...] [address] | [place] | [phone] | | [facility] | | [address] | | | - LABORATORY | | [...] [address] | [place] | [phone] | | [facility] | | [address] | | | - LABORATORY | | [...] | | | | | | [employer] | | | | | [...] ST. | [address] | [place] | [phone] | | [facility] | | [address] | | | - LABORATORY | | [...] | | | + +---------+ + + Ejime INR (03/18/2015 3:34 PM PDT) + + [...] [address] | [place] | [phone] | | [facility] | | [address] | | | - LABORATORY | | | | + + + + + B Type Natriuretic Peptide (03/18/2015 3:34 PM PDT) + +-------+ + + + | Component | Value | Ref Range | Performed | Pathologist | | | | | At | Signature | + +-------+ + + + | BNP | 11 | <100 pg/mL | [facility] | | [...] [address] | [place] | [phone] | | [facility] | | [address] | | | - LABORATORY | | [...] [address] | [place] | [phone] | | [facility] | | [address] | | | - LABORATORY | | | | + + + + + Magnesium (03/18/2015 3:28 PM PDT) + +-------+ + + + | Component | Value | Ref Range | Performed | Pathologist | | | | | At | Signature | + +-------+ + + + | Magnesium | 2.1 | 1.8 - 2.5 mg/dL | [facility] [...] + | [facility] | [address] | [place] | [phone] | | [facility] | | [address] | | | - LABORATORY | | [...] | | | | | | [employer] | | | | | [...] + + | Performing | Address | City/State/[facility] | Phone Number | | Organization | | | | + + + + + | [facility] | [address] | [place] | [phone] | | [facility] | | [address] | | | - LABORATORY | | [...] [address] | [place] | [phone] | | [facility] | | [address] | | | - LABORATORY | | [...] | | | | mmol/L | [facility] | | | | [...] | | | FILTRATION | mL/min/1.73m2 | [facility] | | | SAMMARINESE | RATE,ESTIMATED | | MEDICAL | | | | mL/min/1.16v7Cqnr than | | CENTER - | | [...] + | [facility] | [address] | [place] | [phone] | | [facility] | | [address] | | | - LABORATORY | | [...] [address] | [place] | [phone] | | [facility] | | [address] | | | - LABORATORY | | [...] PDT | | | | | Starting Wed03/18/15 at 1640, For | | | | [...] AM PDT | | | | | 03/19/15 at 0900 | | | | | [...] | | | | | | | Wed03/18/15 at 1640, For 1 dose, | | [...]
--- OUTSIDE RECORDS SUMMARY | ~2019-10-27 | XMS | Encounter Summary ---
Demographics + + + | Address | [address] | | | [place] [address] | + + + | Home Phone [...] Team Providers + +------+ + | Care Embryology Teacher Name | Role | Phone | [...] 2015 | | CARDIOLOGY [address] | STRAIGHT CUTTER MACHINE [address] | reprogramming/check | | | | [place], | [place], [place] | DO NOT DELETE | | | | [place] [address] | [address] | (Primary Dx); | | | | [phone] | | Pacemaker - | | | [...] W | | | | | | [place], | | | | | | [place] [address] | | | | | | [phone] | | | | | | | | +--------+ + + + + | 11/20/ | Implant | Cardiology | Daljit Singletary, | Remote Device | | 2018 | Monitor | | [address] | Interrogation | | | | | [place], | (Primary Dx); | | | | | [place] [address] | Presence of | | | | | [phone] | permanent cardiac | | | | [...] | | 2. 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
--- OUTSIDE RECORDS SUMMARY | ~2019-10-27 | XMS | Encounter Summary ---
Demographics + + + | Address | [address] | | | [place] [address] | + + + | Home Phone [...] Team Providers + +------+ + | Care Fabric Worker Leader Name | Role | Phone | [...] + + | 07/12/ | Office | [facility] | Michael Amanda, | Preventative health | | 2013 | Visit | [facility] [place] | DO [address] | care (Primary Dx); | | | | [address] | [place], [place] | Prostate cancer | | | | [place], [place] | [address] | screening; | | | | [address] | | Hypercholesterolemia | | | | [phone] | | ; Hypertension; | | | [...] clear cause was found. He has seen golf course keeper and has a rechec k plan. Possible [...] W | | | | | | [place], | | | | | | [place] [address] | | | | | | [phone] | | | | | | | | +--------+ + + + + | 11/20/ | Implant | Cardiology | Daljit Singletary, | Remote Device | | 2019 | Monitor | | MD [address] [place] | Interrogation | | | | | [place], | (Primary Dx); | | | | | [place] [address] | Presence of | | | | | [phone] | permanent cardiac | | | | [...] - Primary Routine general medical examination at [facility] | | care facility | [...]
--- OUTSIDE RECORDS SUMMARY | ~2019-10-27 | XMS | Encounter Summary ---
Demographics + + + | Address | [address] | | | [place] [address] | + + + | Home Phone [...] Providers + +------+ + | Care Water Softener Service Supervisor Name | Role | Phone [...] | | CARDIOLOGY [address] | Janeen HIGH PRESSURE KETTLE OPERATOR [address] | mixed | | | | [employer] [place], | [employer] [place], | | | | | [place] [address] | [place] [address] | | | | | [phone] | [phone] | | | | | | | [...] | | | | | | [place] [address] | | | | | | [phone] | | | | | | | | +--------+ + + + + | 11/20/ | Implant | Cardiology | Daljit Singletary, | Remote Device | | 2018 | Monitor | | MD Sim [facility] | Interrogation | | | | | [place], | (Primary Dx); | | | | | [place] [address] | Presence of | | | | | [phone] | permanent cardiac | | | | [...]
--- OUTSIDE RECORDS SUMMARY | ~2019-10-27 | XMS | Encounter Summary ---
Demographics + + + | Address | [address] | | | [place] [address] | + + + | Home Phone [...] | [facility] | | [...] Team Providers + +------+ + | Care Zinc Plater Name | Role | Phone | + [...] Provider Unknown | | | | | [place], [place] | [phone] | | | | | [address] | | | | | | [phone] | | | +--------+ + + + [...] + + + +---------+ + + | [place]-3 Fatty | CAPS, one capsule by [...] | | | | | | | #[id number], exp 07/2016 | | | | | [...] | | | | | | [place] [address] | | | | | | [phone] | | | | | | | | +--------+ + + + + | 11/20/ | Implant | Cardiology | Daljit Singletary, | Remote Device | | 2018 | Monitor | | MD [address] | Interrogation | | | | | [place], | (Primary Dx); | | | | | [place] [address] | Presence of | | | | | [phone] | permanent cardiac | | | | [...]
--- OUTSIDE RECORDS SUMMARY | ~2019-10-27 | XMS | Encounter Summary ---
Demographics + + + | Address | [address] | | | [place] [address] | + + + | Home Phone [...] Team Providers + +------+ + | Care Wicker Worker Name | Role | Phone | [...] | Specialty | Urology | Diagnoses | Vsailiy, | Shweta, | | | Services | | Urinary | Michael Cole DO | Miguel Cr MD | | | Required | | frequency | [address] | [address] | | | | | Incontinence | A[address] [place] | [place], | | | | | | [place] | [place] [address] | | | | | | [address] | Phone: | | | | | | Phone: | [phone] | | | | | | [phone] | Fax: | | | | | | Fax: | [phone] | | | | | | [phone] | | +--------+ + + + + [...] | diurnal enuresis | | | | [place], [place] | [place], [place] | (Primary Dx); BPH | | | | [address] | [address] | with | | | | [phone] | | obstruction/lower | | | | [...] Haleigh rodarte states that the surgeon in [place] who performed his neck surgery is no longer practicing a nd was apparently disciplined and had his license revoked by the [facility]. He has ed marijuana for his [...] APNEA CONDS CLASSIFIED ELSEWHERE (12/15/2010); Ulcerative colitis ([facility]); Ches t pain; SINUS BRADYCARDIA; HEPATITIS B; PUD; FATTY LIVER DISEASE; SUBSTANCE ABUSE, MULTIPLE; Preventative health care (06/26/2013); Bladder troubles; Tuberculosis; Anginal pain ([facility]); St roke ([facility]); Prostate troubles; and Neurological disorder. [...] needed for Chest pain. 25 tablet 12 [place]-3 Fatty Acids (SALMON OIL-1000 PO) CAPS, one capsule by mouth daily twice daily ONE TOUCH DELICA LANCETS [facility] Check glucose [...] Date/Time: 04/22/2012 16:56 Transcribed Date/Time: 04/22/2012 17:32 Latex Fashions Designer: <Electronically Signed by Jama Solis MD> 04/23/12 [...] Date/Time: 04/23/2012 10:54 Transcribed Date/Time: 04/23/2012 11:06 Late[employer] Fash[employer] Designer: <Electronically Signed by Jama Solis MD> 04/24/12 7866 IMPRESSION: 1. Nocturnal and diurnal enuresis. I [...] bladder, still believe that the recommendations from [facility] neurosurgeon, Dr. Demarco, on 03/13/2014 would [...] have not thoroughly proofread this note, and mascara molder erro rs may occur. CC: Kirk French [...] | | | | | | [place] [address] | | | | | | [phone] | | | | | | | | +--------+ + + + + | 11/20/ | Implant | Cardiology | Daljit Singletary, | Remote Device | | 2019 | Monitor | | [facility] | Interrogation | | | | | [place], | (Primary Dx); | | | | | [place] [address] | Presence of | | | | | [phone] | permanent cardiac | | | | [...] 1.001 - 1.030 | | | | [place], | | | | | | UA, [...]
--- OUTSIDE RECORDS SUMMARY | ~2019-10-27 | XMS | Encounter Summary ---
Demographics + + + | Address | [address] | | | [place] [address] | + + + | Home Phone [...] Team Providers + +------+ + | Care Joiner Helper Name | Role | Phone | [...] | 01/03/ | Office | [facility] | Silvia, | CAD (coronary artery | | 2012 | Visit | CARDIOLOGY [address] | Janeen, POWER GRADER OPERATOR [address] | disease) (Primary | | | | [place], | [place], | Dx); Bradycardia; | | | | [place] [address] | [place] [address] | HTN (hypertension); | | | | [phone] | [phone] | Lightheadedness | | | | | [...] tablet Take 1,000 mg by mouth Daily. [place]-3 Fatty Acids (SALMON OIL-1000 PO) CAPS, one [...] himself t o the emergency department at [facility] in [place], [place]. EKG showed normal s inus rhythm [...] Refer patient to an electrophysiology specialist in [place] for further evaluation for P VC's ablation. I have given verbal instructions and written material for patient to read mo re about the procedure. 2. Check blood pressure and pulse twice daily for two weeks and return the log to our offic e. 3. Followup appointment after patient's appointment with transcription specialist/ablation. IJaneen ARNP, saw this patient under the direct supervision of Daljit Singletary MD Portions of this report were transcribed using voice recognition software. Every effort wa s made to ensure accuracy; however, inadvertent computerized recruiting scheduler errors may be pre sent. documented in this encounter Plan of Treatment +--------+ + + + + | Date | Type | Specialty | Care Team | Description | +--------+ + + + + | 11/09/ | Office | Cardiology | Silvia, | | | 2018 | Visit | | PARISA [place] [address] | | | | | | [place], | | | | | | [place] [address] | | | | | | [phone] | | | | | | | | +--------+ + + + + | 11/20/ | Implant | Cardiology | Daljit Singletary, | Remote Device | | 2018 | Monitor | | MD [address] | Interrogation | | | | | [place], | (Primary Dx); | | | | | [place] [address] | Presence of | | | | | [phone] | permanent cardiac | | | | [...] of unspecified type | | of vessel, fond du lac or graft | + + | Bradycardia Other specified cardiac dysrhythmias | + + | HTN (hypertension) Unspecified essential hypertension | + + | Lightheadedness Dizziness and giddiness | + + documented in this encounter
--- OUTSIDE RECORDS SUMMARY | ~2019-10-27 | XMS | Encounter Summary ---
Demographics + + + | Address | [address] | | | [place] [address] | + + + | Home Phone [...] Team Providers + +------+ + | Care Hook Up Name | Role | Phone | [...] + + | 08/17/ | Office | [facility] | Michael Amanda, | Testosterone | | 2012 | Visit | [facility] [place] | DO [address] | deficiency (Primary | | | | [address] | [place] | Dx); Hypoglycemia; | | | | [place] | [address] | Herpes | | | | [address] | | | | | | [phone] | | | +--------+---------+ + + + [...] lowering his testosterone levels. He seen at [facility]. He was prescribed OxyContin and Dilaudid. [...] erectile dy sfunction. He was seen at [facility] yesterday and they prescribed him testostero ne cypionate injections. He's not sure when they wanted him to come back for labs. He has a followup appointment with [facility] in one month. Patient complains of [...] HTN (hypertension); Hypercholesterolemia; Bipolar 1 disorder; Insomnia; Bradley Linebacker Crewmember jennifer neck pain; Depression; Hyperlipidemia; BIPOLAR DISORDER [...] per orders. This note is dictated using Med ePad voice recognition software. This note was dictated [...] | | | | | | [place] [address] | | | | | | [phone] | | | | | | | | +--------+ + + + + | 11/20/ | Implant | Cardiology | Daljit Singletary, | Remote Device | | 2018 | Monitor | | MD [address] [place] [address] | Interrogation | | | | | [place], | (Primary Dx); | | | | | [place] [address] | Presence of | | | | | [phone] | permanent cardiac | | | | [...]
--- OUTSIDE RECORDS SUMMARY | ~2019-10-27 | XMS | Encounter Summary ---
Demographics + + + | Address | [address] | | | [place] [address] | + + + | Home Phone [...] Team Providers + +------+ + | Care Delphi Developer Name | Role | Phone | [...] | 01/05/ | Telephone | [facility] [place] | Emmanuel Daniel MD | Other | | 2019 | | GASTROENTEROLOGY | [address], [place] | | | | | [address] [place] | [address] [place], [place] | | | | | [address] [place], [place] | [address] | | | | | [address] | | | | | | [phone] | | | +--------+ + + + [...] | | | | | | [place] [address] | | | | | | [phone] | | | | | | | | +--------+ + + + + | 11/20/ | Implant | Cardiology | Daljit Singletary, | Remote Device | | 2018 | Monitor | | MD [address] [address] | Interrogation | | | | | [place], | (Primary Dx); | | | | | [place] [address] | Presence of | | | | | [phone] | permanent cardiac | | | | [...]
--- OUTSIDE RECORDS SUMMARY | ~2019-10-27 | XMS | Encounter Summary ---
Demographics + + + | Address | [address] | | | [place] [address] | + + + | Home Phone [...] Team Providers + +------+ + | Care Historic Clothing And Costume Maker Name | Role | Phone | + +------+ + PCP | Unavailable | + +------+ + Encounter Details +--------+ + + + + | Date | Type | Department | Care Team | Description | +--------+ + + + + | 01/20/ | [facility] | [facility] | Geri Angel, | | | 2009 | Encounter | MED CTR GENERIC OP | CRYPTOLOGIC SUPERVISOR [address] | | | | | CONV DEPT [address] | [address] [place] | | | | | [place], | [address] | | | | | [place] [address] | | | | | | [phone] | | | +--------+ + + + [...] | | | | | | [place] [address] | | | | | | [phone] | | | | | | | | +--------+ + + + + | 11/20/ | Implant | Cardiology | Daljit Singletary, | Remote Device | | 2019 | Monitor | | MD [address] | Interrogation | | | | | [place], | (Primary Dx); | | | | | [place] [address] | Presence of | | | | | [phone] | permanent cardiac | | | | [...]
--- OUTSIDE RECORDS SUMMARY | ~2019-10-27 | XMS | Encounter Summary ---
Demographics + + + | Address | [address] | | | [place] [address] | + + + | Home Phone [...] Team Providers + +------+ + | Care Picture Hanger Name | Role | Phone | + +------+ + PCP | Unavailable | + +------+ + Encounter Details +--------+ + + + + | Date | Type | Department | Care Team | Description | +--------+ + + + + | 07/20/ | [facility] | [facility] | Hunter Antunez, | | | 2009 - | Encounter | MED CTR MED ONC | [address] | | | | | [address] [place] | [place] | | | 07/24/ | | [place] [address] | [address] | | | 2009 | | [phone] | | | +--------+ + + + [...] [place] | | | | | | [place] [address] | | | | | | [phone] | | | | | | | | +--------+ + + + + | 11/20/ | Implant | Cardiology | Daljit Singletary, | Remote Device | | 2019 | Monitor | | MD [address] | Interrogation | | | | | [address] [place], | (Primary Dx); | | | | | [place] [address] | Presence of | | | | | [phone] | permanent cardiac | | | | [...]
--- OUTSIDE RECORDS SUMMARY | ~2019-10-27 | XMS | Encounter Summary ---
Demographics + + + | Address | [address] | | | [place] [address] | + + + | Home Phone [...] Providers + +------+ + | Care Traffic Engineering Technician Name | Role | Phone [...] [address] | | | | | [address] | [place] | | | | | [phone] | [address] | | | | | | [phone] | | | | | | | [...] | | | | | | [place], | | | | | | [place] [address] | | | | | | [phone] | | | | | | | | +--------+ + + + + | 11/20/ | Implant | Cardiology | Daljit Singletary, | Remote Device | | 2018 | Monitor | | MD [address] [place] [address] | Interrogation | | | | | [place], | (Primary Dx); | | | | | [place] [address] | Presence of | | | | | [phone] | permanent cardiac | | | | [...]
--- OUTSIDE RECORDS SUMMARY | ~2019-10-27 | XMS | Encounter Summary ---
Demographics + + + | Address | [address] | | | [place] [address] | + + + | Home Phone [...] Providers + +------+ + | Care City Detective Name | Role | Phone | + [...] [address] | | | | | | [place], [place] | (Fax) | | | | | [address] | | | | | | [phone] | | | +--------+ + + + [...] | | | | | | [place] [id number] | | | | | | [phone] | | | | | | | | +--------+ + + + + | 11/20/ | Implant | Cardiology | Daljit Singletary, | Remote Device | | 2018 | Monitor | | [address] [facility] | Interrogation | | | | | [place], | (Primary Dx); | | | | | [place] [address] | Presence of | | | | | [phone] | permanent cardiac | | | | [...]
--- OUTSIDE RECORDS SUMMARY | ~2019-10-27 | XMS | Encounter Summary ---
Demographics + + + | Address | [address] | | | [place] [address] | + + + | Home Phone [...] Providers + +------+ + | Care Health Concierge Name | Role | Phone | [...] CTR CASE | RN | (referral from [facility]) | | | | MANAGEMENT [address] | | | | | | [place], | | | | | | [place] [address] | | | | | | [phone] | | | +--------+ + + + [...] | | | | | | [place] [address] | | | | | | [phone] | | | | | | | | +--------+ + + + + | 11/20/ | Implant | Cardiology | Daljit Singletary, | Remote Device | | 2018 | Monitor | | [address] | Interrogation | | | | | [place], | (Primary Dx); | | | | | [place] [address] | Presence of | | | | | [phone] | permanent cardiac | | | | [...]
--- OUTSIDE RECORDS SUMMARY | ~2019-10-27 | XMS | Encounter Summary ---
Demographics + + + | Address | [address] [place] [address] | | | [place] [address] | + + + | Home Phone [...] [place] | | | | | [address] | | + + + + + Care Team Providers + +------+ + | Care Transfusion Nurse Name | Role | Phone | [...] | | 2019 | | Center at [facility] | Gastroenterology | Gastroenterology | | | | ILA Tremayne Crane | | | | | | Mailcode: [place] | | | | | | [facility] and | | | | | | [place] [address] | | | | | | [place], [place] | | | | | | [address] | | | | | | [phone] | | | +--------+ + + + [...]
--- OUTSIDE RECORDS SUMMARY | ~2019-10-27 | XMS | Encounter Summary ---
Demographics + + + | Address | [address] | | | [place] [address] | + + + | Home Phone [...] Providers + +------+ + | Care Ct Scan Tech Name | Role | Phone | [...] 2014 | | CARDIOLOGY [address] | PARTITION ASSEMBLER [address] | | | | | [place], | [place], [place] | | | | | [place] [address] | [address] | | | | | [phone] | | | +--------+ + + + [...] [place], | | | | | | [place] [address] | | | | | | [phone] | | | | | | | | +--------+ + + + + | 11/20/ | Implant | Cardiology | Daljit Singletary, | Remote Device | | 2018 | Monitor | | MD Chiquis Oro | Interrogation | | | | | [address], | (Primary Dx); | | | | | [place] [address] | Presence of | | | | | [phone] | permanent cardiac | | | | [...]
--- OUTSIDE RECORDS SUMMARY | ~2019-10-27 | XMS | Encounter Summary ---
Demographics + + + | Address | [address] | | | [place] [address] | + + + | Home Phone [...] Team Providers + +------+ + | Care Hydrographic Surveyor Name | Role | Phone | [...] | | CARDIOLOGY [address] | Janeen, DATABASE PROGRAMMER ANALYST [address] | Clearance) | | | | [place], | [place], | | | | | [place] [address] | [place] [address] | | | | | [phone] | [phone] | | | | | | | [...] | | | | | | [place] [address] | | | | | | [phone] | | | | | | | | +--------+ + + + + | 11/20/ | Implant | Cardiology | Daljit Singletary, | Remote Device | | 2018 | Monitor | | [address] | Interrogation | | | | | [place], | (Primary Dx); | | | | | [place] [address] | Presence of | | | | | [phone] | permanent cardiac | | | | [...]
--- OUTSIDE RECORDS SUMMARY | ~2019-10-27 | XMS | Encounter Summary ---
Demographics + + + | Address | [address] | | | [place] [address] | + + + | Home Phone [...] Team Providers + +------+ + | Care Donation Worker Name | Role | Phone | + +------+ + | Michael Amanda DO | PCP | | + +------+ + Encounter Details +--------+ + + + + | Date | Type | Department | Care Team | Description | +--------+ + + + + | 05/11/ | Hospital | [facility] | Conversion | Lumbago; | | 2013 | Encounter | MEDICAL CENTER XRAY | Transaction, | Postlaminectomy | | | | [address] | Provider Unknown | syndrome, cervical | | | | [place], [place] | | region; Cervicalgia | | | | [address] | (Fax) | | | | | [phone] | | | +--------+ + + + [...] + + + +---------+ + + | [place]-3 Fatty | CAPS, one capsule by | [...] 1147 Date of Service: 05/11/141145 Status: Signed Power Generation Technician: Christine Mcgraw Report called to Brittany morejon [...] W | | | | | | [place], | | | | | | [place] [address] | | | | | | [phone] | | | | | | | | +--------+ + + + + | 11/20/ | Implant | Cardiology | Daljit Singlteary, | Remote Device | | 2018 | Monitor | | [address] [place] | Interrogation | | | | | [place], | (Primary Dx); | | | | | [place] [address] | Presence of | | | | | [phone] | permanent cardiac | | | | [...]
--- OUTSIDE RECORDS SUMMARY | ~2019-10-27 | XMS | Encounter Summary ---
Demographics + + + | Address | [address] | | | [place] [address] | + + + | Home Phone [...] Team Providers + +------+ + | Care Waste Collector Name | Role | Phone | [...] + | 01/25/ | Telephone | [facility] | Daljit Singletary, | Appointment | | 2017 | | CARDIOLOGY [address] | MD [address] [place] [place] | | | | | [place], | [place], | | | | | [place] [address] | [place] [address] | | | | | [phone] | [phone] | | | | | | | [...] W | | | | | | [place], | | | | | | [place] [address] | | | | | | [phone] | | | | | | | | +--------+ + + + + | 11/20/ | Implant | Cardiology | Daljit Singletary, | Remote Device | | 2018 | Monitor | | MD [address] [place] [address] | Interrogation | | | | | [place], | (Primary Dx); | | | | | [place] [address] | Presence of | | | | | [phone] | permanent cardiac | | | | [...]
--- OUTSIDE RECORDS SUMMARY | ~2019-10-27 | XMS | Encounter Summary ---
Demographics + + + | Address | [address] | | | [place] [address] | + + + | Home Phone [...] Team Providers + +------+ + | Care Independent Freight Agent Name | Role | Phone | [...] + + | 08/23/ | Telephone | [facility] | AnshujohnsoncherelleDaljit, | Other (edema is | | 2015 | | CARDIOLOGY [address] | MD [address] [place] | blood clots) | | | | [place], | [place], | | | | | [place] [address] | [place] [address] | | | | | [phone] | | | | | | | [...] | | | | | | [place] [address] | | | | | | [phone] | | | | | | | | +--------+ + + + + | 11/20/ | Implant | Cardiology | Daljit Singletary, | Remote Device | | 2018 | Monitor | | MD [facility] | Interrogation | | | | | [place], | (Primary Dx); | | | | | [place] [address] | Presence of | | | | | [phone] | permanent cardiac | | | | [...]
--- OUTSIDE RECORDS SUMMARY | ~2019-10-27 | XMS | Encounter Summary ---
Demographics + + + | Address | [address] | | | [place] [address] | + + + | Home Phone [...] Team Providers + +------+ + | Care Deck Officer Name | Role | Phone | + +------+ + | Kirk French MD | PCP | | + +------+ + Encounter Details +--------+ + + + + | Date | Type | Department | Care Team | Description | +--------+ + + + + | 01/05/ | Orders Only | [facility] | Emmanuel Daniel MD | | | 2019 | | [facility] | [address] [place] | | | | | PATHOLOGY [address] | [address] [place], [place] | | | | | BLVD [place], [place] | [address] | | | | | [address] | | | | | | [phone] | | | +--------+ + + + [...] W | | | | | | [place], | | | | | | [place] [address] | | | | | | [phone] | | | | | | | | +--------+ + + + + | 11/20/ | Implant | Cardiology | Daljit Singletary, | Remote Device | | 2018 | Monitor | | MD [address] | Interrogation | | | | | [place], | (Primary Dx); | | | | | [place] [address] | Presence of | | | | | [phone] | permanent cardiac | | | | [...] | | | (atherosclerotic heart disease of upper [place] coronary artery without | | | angina [...] chronic or | | | microscopic colitis. BES:[facility]:C3NR GROSS DESCRIPTION: A. The | | | specimen, labeled "[place], duodenal biopsy" is received in formalin | | | and consists of seven 0.1-0.5 cm lin fragments. Entirely submitted in | | | (A1). B. The specimen, labeled "[place], right colon" is received | | | in formalin and consists of six 0.2-0.3 cm lin fragments. Entirely | | | submitted in (B1). C. The specimen, labeled "[place], left colon" | | | is received in formalin and consists of six 0.2-0.3 cm lin-pink | | | fragments. Entirely submitted in (C1). am:AMB:portillo PERFORMING | | | LABORATORY: The technical component was performed by [facility] | | | [facility], [address] [place] [address] (German Professor: | | | Kailey Stafford MD; CLIA# [id number]). Professional interpretation was | | | performed by [facility], [facility], [address] | | | [place] [address] (German Professor: Ishaan | | | Anthony Dao; CLIA#: [id number]). Diagnostician: Ishaan Dao | | | Pathologist [...]
--- OUTSIDE RECORDS SUMMARY | ~2019-10-27 | XMS | Encounter Summary ---
Demographics + + + | Address | [address] | | | [place] [address] | + + + | Home Phone [...] Team Providers + +------+ + | Care Commutator Inspector Name | Role | Phone | [...] | | GASTROENTEROLOGY | [address] [place], [place] | | | | | [address] [place] | [address] [place], [place] | | | | | [address] [place], [place] | [address] | | | | | [address] | | | | | | [phone] | | | +--------+ + + + [...] | | | | | | [place] [address] | | | | | | [phone] | | | | | | | | +--------+ + + + + | 11/20/ | Implant | Cardiology | Daljit Singletary, | Remote Device | | 2019 | Monitor | | MD [address] | Interrogation | | | | | [place], | (Primary Dx); | | | | | [place] [address] | Presence of | | | | | [phone] | permanent cardiac | | | | [...]
--- OUTSIDE RECORDS SUMMARY | ~2019-10-27 | XMS | Encounter Summary ---
Demographics + + + | Address | [address] | | | [place] [address] | + + + | Home Phone [...] + +------+ + | Care Golf Ball Molder Name | Role | Phone | + +------+ + PCP | Unavailable | + +------+ + Encounter Details +--------+ + + + + | Date | Type | Department | Care Team | Description | +--------+ + + + + | 10/26/ | Hospital | [facility] | | | | 1994 | Encounter | MED CTR EMERGENCY | | | | | | CENTER [address] | | | | | | [place] | | | | | | [address] | | | | | | [phone] | | | +--------+ + + + [...] | | | | | | [place] [address] | | | | | | [phone] | | | | | | | | +--------+ + + + + | 11/20/ | Implant | Cardiology | Daljit Singletary, | Remote Device | | 2018 | Monitor | | [address] [facility] | Interrogation | | | | | [place], | (Primary Dx); | | | | | [place] [address] | Presence of | | | | | [phone] | permanent cardiac | | | | [...]
--- OUTSIDE RECORDS SUMMARY | ~2019-10-27 | XMS | Encounter Summary ---
Demographics + + + | Address | [address] | | | [place] [address] | + + + | Home Phone [...] Providers + +------+ + | Care Machine Tender Name | Role | Phone [...] | RN | | | | | [place], | | | | | | [place] [address] | | | | | | [phone] | | | +--------+ + + + [...] | | | | | | [place], | | | | | | [place] [address] | | | | | | [phone] | | | | | | | | +--------+ + + + + | 11/20/ | Implant | Cardiology | Daljit Singletary, | Remote Device | | 2019 | Monitor | | [address] | Interrogation | | | | | [place], | (Primary Dx); | | | | | [place] [address] | Presence of | | | | | [phone] | permanent cardiac | | | | [...]
--- OUTSIDE RECORDS SUMMARY | ~2019-10-27 | XMS | Encounter Summary ---
Demographics + + + | Address | [address] | | | [place] [address] | + + + | Home Phone [...] Providers + +------+ + | Care Can Dryer Name | Role | Phone | + [...] + + | 12/23/ | Telephone | [facility] | Emmanuel Daniel MD | Other (Needs to know | | 2017 | | GASTROENTEROLOGY | [address], [place] | what he can eat | | | | [address] [place] | [address] [place], [place] | today) | | | | [address] [place], [place] | [address] | | | | | [address] | | | | | | [phone] | | | +--------+ + + + [...] | | | | | | [place] [address] | | | | | | [phone] | | | | | | | | +--------+ + + + + | 11/20/ | Implant | Cardiology | Daljit Singletary, | Remote Device | | 2018 | Monitor | | MD Chiquis Oro | Interrogation | | | | | [place], | (Primary Dx); | | | | | [place] [address] | Presence of | | | | | [phone] | permanent cardiac | | | | [...]
--- OUTSIDE RECORDS SUMMARY | ~2019-10-27 | XMS | Encounter Summary ---
Demographics + + + | Address | [address] | | | [place] [address] | + + + | Home Phone [...] Providers + +------+ + | Care Transmission Repairer Name | Role | Phone | + +------+ + PCP | Unavailable | + +------+ + Encounter Details +--------+ + + + + | Date | Type | Department | Care Team | Description | +--------+ + + + + | 06/14/ | [facility] | [facility] | Kennethshaistatesha Shaistakenneth, | | | 2008 - | Encounter | MED CTR MP INTRA OP | [address] | | | | | [address] | [address] [place], | | | 06/15/ | | [place] | [place] [address] | | | 2008 | | [address] | [phone] | | | | | [phone] | | | +--------+ + + + [...] | | | | | | [place] [address] | | | | | | [phone] | | | | | | | | +--------+ + + + + | 11/20/ | Implant | Cardiology | Daljit Singletary, | Remote Device | | 2019 | Monitor | | MD [address] | Interrogation | | | | | [place], | (Primary Dx); | | | | | [place] [address] | Presence of | | | | | [phone] | permanent cardiac | | | | [...]
--- OUTSIDE RECORDS SUMMARY | ~2019-10-27 | XMS | Encounter Summary ---
Demographics + + + | Address | [address] | | | [place] [address] | + + + | Home Phone [...] Providers + +------+ + | Care Online Health And Fitness Coach Name | Role | Phone | [...] + + | 01/05/ | Office | [facility] | Silvia, | Pacemaker - | | 2018 | Visit | CARDIOLOGY [address] | [place] [address] | Medtronic - [id number] | | | | [place], | [place], | [place] - Implanted | | | | [place] [address] | [place] [address] | 06/14/2009 (Primary | | | | [phone] | [phone] | Dx); Chest pain, | | | [...] involving | | | | | | [place] coronary | | | | | | artery of [place] | | | | | | heart [...] of 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 He went to the ER in [place] because th e NTG didn't relieved the pain. He was diagnosed with bronchitis. Otherwise he has had no ot her symptoms. He has had a good energy level. He tries to stay active. He has joined a [employer] and trying to exercise more often. [...] Preventative health care Coronary artery disease involving [place] coronary artery of [place] heart without angina pectoris Cannabis abuse, daily [...] by mouth every evening 90 tablet 0 [facility] Natural Products (OSTEO BI-FLEX/5-LOXIN [...] 3RD DOSE, CALL 911 100 tablet 3 [place]-3 Fatty Acids (SALMON OIL-1000 PO) CAPS, one capsule by mouth daily twice daily ONE TOUCH DELICA LANCETS [facility] Check glucose as needed for hypoglycemia 100 [...] reviewed during visit today primarily from [facility]: LIPID Lab Results Component Value Date [...] (A) 10/18/2017 I reviewed records from [facility] for office visit on 01/2017 whic h [...] overload. 2. Non-critical Coronary artery disease involving [place] coronary a rtery of [place] heart without angina pectoris: A. Normal exercise [...] to go back in 3 days to [place] for an attempt of ablation under general [...] a normal stable device function. Estimated remaining [facility] longevity is 3.5 years.. 5. [...] this chart may have been created with [employer] voice recognition software. Occasi onal wrong-word [...] | | | | | | [place] [address] | | | | | | [phone] | | | | | | | | +--------+ + + + + | 11/20/ | Implant | Cardiology | Sydni Singletary, | Remote Device | | 2019 | Monitor | | MD [address] [facility] | Interrogation | | | | | [place], | (Primary Dx); | | | | | [place] [address] | Presence of | | | | | [phone] | permanent cardiac | | | | [...] involving | | | | | | [place] coronary | | | | | | artery of [place] | | | | | | heart [...] SYDNI | | | | | | ([id number]) on 01/06/2018 | | | | | [...] + + | Coronary artery disease involving [place] coronary artery of [place] heart without | | angina pectoris | + + | Hyperlipidemia, mixed Mixed hyperlipidemia | + + | Hypertension, unspecified type | + + | Syncope, unspecified syncope type | + + | Ascending thoracic aortic aneurysm (HCC) Thoracic aneurysm without mention of rupture | + + documented in this encounter
--- OUTSIDE RECORDS SUMMARY | ~2019-10-27 | XMS | Encounter Summary ---
Demographics + + + | Address | [address] | | | [place] [address] | + + + | Home Phone [...] Team Providers + +------+ + | Care Prick Stitcher Name | Role | Phone | + +------+ + | Kirk French MD | PCP | | + +------+ + Encounter Details +--------+ + + + + | Date | Type | Department | Care Team | Description | +--------+ + + + + | 08/10/ | Orders Only | [facility] | [place], | Mixed hyperlipidemia | | 2016 | | MED CTR LABORATORY | [place] [address] | (Primary Dx) | | | | [address] [place] | [place], | | | | | [place] | [place] [address] | | | | | [address] | [phone] | | | | | [phone] | | | +--------+ + + + [...] W | | | | | | [place], | | | | | | [place] [address] | | | | | | [phone] | | | | | | | | +--------+ + + + + | 11/20/ | Implant | Cardiology | Daljit Singletary, | Remote Device | | 2018 | Monitor | | [place] [address] [facility] | Interrogation | | | | | [place], | (Primary Dx); | | | | | [place] [address] | Presence of | | | | | [phone] | permanent cardiac | | | | [...]
--- OUTSIDE RECORDS SUMMARY | ~2019-10-27 | XMS | Encounter Summary ---
Demographics + + + | Address | [address] | | | [place] [address] | + + + | Home Phone [...] Providers + +------+ + | Care Business Solutions Architect Name | Role | Phone | + +------+ + PCP | Unavailable | + +------+ + Encounter Details +--------+ + + + + | Date | Type | Department | Care Team | Description | +--------+ + + + + | 06/17/ | Hospital | [facility] | | | | 2007 | Encounter | MED CTR EMERGENCY | | | | | | [place] [address] | | | | | | [place] | | | | | | [address] | | | | | | [phone] | | | +--------+ + + + [...] | | | | | | [place] [address] | | | | | | [phone] | | | | | | | | +--------+ + + + + | 11/20/ | Implant | Cardiology | Daljit Singletary, | Remote Device | | 2018 | Monitor | | [address] [facility] | Interrogation | | | | | [place], | (Primary Dx); | | | | | [place] [address] | Presence of | | | | | [phone] | permanent cardiac | | | | [...]
--- OUTSIDE RECORDS SUMMARY | ~2019-10-27 | XMS | Encounter Summary ---
Demographics + + + | Address | [address] | | | [place] [address] | + + + | Home Phone [...] Team Providers + +------+ + | Care Finishing Lab Technician Name | Role | Phone | + +------+ + | Michael Amanda DO | PCP | | + +------+ + Encounter Details +--------+ + + + + | Date | Type | Department | Care Team | Description | +--------+ + + + + | 12/25/ | Hospital | [facility] | Daljit Singletary, | | | 2013 | Encounter | MED CTR XRAY [address] | [address] [place] | | | | | [place] | [place], | | | | | [place] [address] | [place] [address] | | | | | [phone] | [phone] | | | | | | | [...] + + + +---------+ + + | [place]-3 Fatty | CAPS, one capsule by | [...] | | | | | | [place] [address] | | | | | | [phone] | | | | | | | | +--------+ + + + + | 11/20/ | Implant | Cardiology | Anshujohnsoncherelle [place], | Remote Device | | 2019 | Monitor | | [address] [facility] | Interrogation | | | | | [place], | (Primary Dx); | | | | | [place] [address] | Presence of | | | | | [phone] | permanent cardiac | | | | [...] Performed At | + + + | [facility] Diagnostic [facility] | [place] | | Department [address] [place] [address] | [facility] | | [ rep ct [address]] [ rep [facility] | | st zip] Signed | - IMAGING | | | | | Patient Name: MOE GAY | | | Physician: MIGUELINA : 1960 Age: 53 Sex: M Unit | | | #: [id number] Exam Date: 12/25/13 Location: | | | SDS SDS-D Report #: [id number] Page: | | | %(RAD)RES..mtdd.print.filter("pg") of %(RAD) | | | RES..mtdd.print.filter("tpg") | | | | | | Accession Number: [id number] | | | LEFT HEART CATHETERIZATION, 12/25/2013 [...] patient was taken to the cardiac laborer chicken farm. She | | | was prepared and draped in the usual fashion. Under sterile | | | technique and local anesthesia, percutaneous access was obtained | | | using #5 Peruvian sheath in the right radial artery. Right heart cath | | | was not performed on this patient. Left ventriculography was | | | performed using #5 multipurpose diagnostic catheter. The selective | | | coronary angiography was then performed in several sagittal and | | | oblique projections using #5 multipurpose and #5 Peruvian JL 3.5 | | | diagnostic catheters. [...] Transcribed | | | Date/Time: 12/25/2013 11:52 Billet Straightener: | | | <<Signature on File>> | | | Suwong | | | MD CLEOPATRA Singletary FASNanette12/25/13 1343 <Electronically signed by | | | Daljit Singletary MD, [facility], FAC, ADELINE, FASNC> Daljit | | | MD CLEOPATRA Singletary 12/25/13 1035 Billet Straightener: [employer] | | | Zqnfdkidledjx18/03/14 1152 | | + + + + + + + + | Performing | Address | City/State/Zipcode | Phone Number | | Organization | | | | + + + + + | [facility] | [address] | [place] | [phone] | | [facility] | | [address] | | | - IMAGING | | | | + + + + + documented in this encounter Visit Diagnoses Not on filedocumented in this encounter
--- OUTSIDE RECORDS SUMMARY | ~2019-10-27 | XMS | Encounter Summary ---
Demographics + + + | Address | [address] | | | [place] [address] | + + + | Home Phone [...] Providers + +------+ + | Care Glass Setter Name | Role | Phone | + +------+ + | Kirk French MD | PCP | | + +------+ + Encounter Details +--------+ + + + + | Date | Type | Department | Care Team | Description | +--------+ + + + + | 12/24/ | Anesthesia | [facility] | Jarett Barakat | | | 2018 | Event | MED CTR MP INTRA OP | P, MD [address] | | | | | [address] [place] | [address] [place], [place] | | | | | [place], [place] | [address] | | | | | [address] | [phone] | | | | | [phone] | | | | | | | Arthur [place], | | | | | | [address] | | | | | | [place], [place] | | | | | | [address] | | | | | | | [...] 12/24/17 1435 by | | eral | gero-ptc-qzpvqa catheter system; | Desmond Teresa RN | [...] | | | | | [place], | | | | | | [place] [address] | | | | | | [phone] | | | | | | | | +--------+ + + + + | 11/20/ | Implant | Cardiology | Daljit Singletary, | Remote Device | | 2018 | Monitor | | [address] [facility] | Interrogation | | | | | [place], | (Primary Dx); | | | | | [place] [address] | Presence of | | | | | [phone] | permanent cardiac | | | | [...]
--- OUTSIDE RECORDS SUMMARY | ~2019-10-27 | XMS | Encounter Summary ---
Demographics + + + | Address | [address] | | | [place] [address] | + + + | Home Phone [...] Providers + +------+ + | Care Black Off Worker Name | Role | Phone | [...] [address] | | | | | [place], | [place], | | | | | [place] [address] | [place] [address] | | | | | [phone] | [phone] | | | | | | | [...] W | | | | | | [place], | | | | | | [place] [address] | | | | | | [phone] | | | | | | | | +--------+ + + + + | 11/20/ | Implant | Cardiology | Daljit Singletary, | Remote Device | | 2018 | Monitor | | [address] [place] | Interrogation | | | | | [place], | (Primary Dx); | | | | | [place] [address] | Presence of | | | | | [phone] | permanent cardiac | | | | [...] Agency Comment | + + | [facility] | + + + +---------+ + [...] Resulting Agency Comment | + + | [facility] | + + + +---------+ [...] Agency Comment | + + | [facility] | + + + +---------+ + [...] Resulting Agency Comment | + + | [facility] | + + + +---------+ [...] Resulting Agency Comment | + + | [facility] | + + + +---------+ [...] Resulting Agency Comment | + + | [facility] | + + + +---------+ [...] Resulting Agency Comment | + + | [facility] | + + + +---------+ [...] Resulting Agency Comment | + + | [facility] | + + + +---------+ + [...] Resulting Agency Comment | + + | [facility] | + + + +---------+ [...] Resulting Agency Comment | + + | [facility] | + + + +---------+ [...] Agency Comment | + + | [facility] | + + + +---------+ + [...] Resulting Agency Comment | + + | [facility] | + + + +---------+ [...] Resulting Agency Comment | + + | [facility] | + + + +---------+ + [...] Resulting Agency Comment | + + | [facility] | + + + +---------+ [...] Resulting Agency Comment | + + | [facility] | + + + +---------+ + [...] Resulting Agency Comment | + + | [facility] | + + + +---------+ [...] Resulting Agency Comment | + + | [facility] | + + + +---------+ [...] Resulting Agency Comment | + + | [facility] | + + + +---------+ + [...] Resulting Agency Comment | + + | [facility] | + + + +---------+ + + [...]
--- OUTSIDE RECORDS SUMMARY | ~2019-10-27 | XMS | Encounter Summary ---
Demographics + + + | Address | [address] [place] [address] | | | [place] [address] | + + + | Home Phone | | + + + | Preferred Language | Unknown | + + + | Marital Status | | + + + | Alevism Affiliation | Unknown | + + + | Race | White | + + + | Ethnic Group | Not or | + + + Author + + + | Author | [facility] | + + + | Organization | [facility] | + + + | Address | Unknown | + + + | Phone | Unavailable | + + + Support + + + + + | Name | Relationship | Address | Phone | + + + + + | Rachel Valencia | ELIEZER | [place] | | | | | [address] | | + + + + + Care Team Providers + +------+ + | Care Roll Contour Grinder Name | Role | Phone | [...] | | | | ILA Crane | [place], [place] | | | | | Mailcode: [place] | [address] | | | | | for Health and | [phone] | | | | | [facility] [address] | | | | | | [place], [place] | | | | | | [address] | | | | | | [phone] | | | +--------+ + + + [...]
--- OUTSIDE RECORDS SUMMARY | ~2019-10-27 | XMS | Encounter Summary ---
Demographics + + + | Address | [address] | | | [place] [address] | + + + | Home Phone [...] | RN | | | | | [place], | | | | | | [place] [address] | | | | | | [phone] | | | +--------+ + + + [...] | 11/09/ | Office | Cardiology | Siliva, | | | 2019 | Visit | | [address] | | | | | | [place], | | | | | | [place] [address] | | | | | | [phone] | | | | | | | | +--------+ + + + + | 11/20/ | Implant | Cardiology | Daljit Singletary, | Remote Device | | 2019 | Monitor | | [address] [facility] | Interrogation | | | | | [place], | (Primary Dx); | | | | | [place] [address] | Presence of | | | | | [phone] | permanent cardiac | | | | [...]
--- OUTSIDE RECORDS SUMMARY | ~2019-10-27 | XMS | Encounter Summary ---
Demographics + + + | Address | [address] | | | [place] [address] | + + + | Home Phone [...] Team Providers + +------+ + | Care Tray Worker Name | Role | Phone | [...] 2018 | | GASTROENTEROLOGY | [address], [place] | about prep for | | | | [address] [place] | [address] [place], [place] | procedure) | | | | [address] [place], [place] | [address] | | | | | [address] | | | | | | [phone] | | | +--------+ + + + [...] | | | | | | [place] [address] | | | | | | [phone] | | | | | | | | +--------+ + + + + | 11/20/ | Implant | Cardiology | Daljit Singletary, | Remote Device | | 2019 | Monitor | | MD [address] | Interrogation | | | | | [place], | (Primary Dx); | | | | | [place] [address] | Presence of | | | | | [phone] | permanent cardiac | | | | [...]
--- OUTSIDE RECORDS SUMMARY | ~2019-10-27 | XMS | Encounter Summary ---
Demographics + + + | Address | [address] | | | [place] [address] | + + + | Home Phone [...] Team Providers + +------+ + | Care Councillor Aboriginal Land [employer] Name | Role | Phone | + [...] Provider Unknown | | | | | [place], [place] | [phone] | | | | | [address] | | | | | | [phone] | | | +--------+ + + + [...] + + +---------+ + + | [place]-3 Fatty | CAPS, one capsule by [...] | | | | | | [place] [address] | | | | | | [phone] | | | | | | | | +--------+ + + + + | 11/20/ | Implant | Cardiology | Daljit Singletary, | Remote Device | | 2018 | Monitor | | [address] [facility] | Interrogation | | | | | [place], | (Primary Dx); | | | | | [place] [address] | Presence of | | | | | [phone] | permanent cardiac | | | | [...]
--- OUTSIDE RECORDS SUMMARY | ~2019-10-27 | XMS | Encounter Summary ---
Demographics + + + | Address | [address] | | | [place] [address] | + + + | Home Phone [...] Team Providers + +------+ + | Care Debeaker Name | Role | Phone | + [...] + + | 04/12/ | Telephone | [facility] | Daljit Singletary, | Other (issues with | | 2017 | | CARDIOLOGY [address] | MD [address] | low blood pressure | | | | [place], | [place], | and dizziness) | | | | [place] [address] | [place] [address] | | | | | [phone] | [phone] | | | | | | | [...] W | | | | | | [place], | | | | | | [place] [address] | | | | | | [phone] | | | | | | | | +--------+ + + + + | 11/20/ | Implant | Cardiology | Daljit Singletary, | Remote Device | | 2018 | Monitor | | [address] | Interrogation | | | | | [place], | (Primary Dx); | | | | | [place] [address] | Presence of | | | | | [phone] | permanent cardiac | | | | [...]
--- OUTSIDE RECORDS SUMMARY | ~2019-10-27 | XMS | Encounter Summary ---
Demographics + + + | Address | [address] | | | [place] [address] | + + + | Home Phone [...] Providers + +------+ + | Care Spa Associate Name | Role | Phone | [...] + | 06/23/ | Office | [facility] | Silvia, | Ascending thoracic | | 2016 | Visit | CARDIOLOGY [address] | [address] | aortic aneurysm | | | | [place], | [place], | ([facility]) (Primary Dx); | | | | [place] [address] | [place] [address] | Coronary artery | | | | [phone] | [phone] | disease involving | | | | | | mesa grande coronary | | | | | | artery of mesa grande | | | | | | [...] in office in 6 months. [email or web address], Janeen, LIBRARIAN - 06/23/2016 12:45 PM PDT PATIENT NAME: Moe Sanchez : 1960: AGE: 56 y.o. PRIMARY CARE: Kirk French MD OUTPATIENT FOLLOW UP VISIT Date of Service: 06/23/2016 HISTORY OF PRESENT ILLNESS: Moe Sanchez is a 56 y.o. 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 Non-critical Coronary artery disease involving mesa [place] coronary artery of mesa grande heart [facility] angina pectoris: A. Normal exercise [...] pain. He is in class I-II of [place] [facility] [employer] n functional class. There are [...] arrhythmia performed by Dr. Gambino at [facility] on 01/30/2013. Patient had spontaneous [...] to go back in 3 days to [place] for an attempt of ablation under general [...] this chart may have been created with [employer] voice recognition software. Occasi onal wrong-word or [...] W | | | | | | [place], | | | | | | [place] [address] | | | | | | [phone] | | | | | | | | +--------+ + + + + | 11/20/ | Implant | Cardiology | Daljit Singletary, | Remote Device | | 2018 | Monitor | | [address] [facility] | Interrogation | | | | | [place], | (Primary Dx); | | | | | [place] [address] | Presence of | | | | | [phone] | permanent cardiac | | | | [...] the | | | | PDT | mesa grande coronary | results section. | | | | | artery of mesa grande | | | | | | [...] MD | | | | | | ([id number]) on 06/23/2016 | | | | | [...] + + | Coronary artery disease involving mesa grande coronary artery of mesa grande heart without | | angina pectoris | [...]
--- OUTSIDE RECORDS SUMMARY | ~2019-10-27 | XMS | Encounter Summary ---
Demographics + + + | Address | [address] | | | [place] [address] | + + + | Home Phone [...] Providers + +------+ + | Care Dry Curer Name | Role | Phone | + [...] 2017 | | CARDIOLOGY [address] | BRASS CUTTER [address] | | | | | [place], | [place], [place] | | | | | [place] [address] | [address] | | | | | [phone] | | | +--------+--------+ + + + [...] W | | | | | | [place], | | | | | | [place] [address] | | | | | | [phone] | | | | | | | | +--------+ + + + + | 11/20/ | Implant | Cardiology | Daljit Singletary, | Remote Device | | 2018 | Monitor | | [address] | Interrogation | | | | | [place], | (Primary Dx); | | | | | [place] [address] | Presence of | | | | | [phone] | permanent cardiac | | | | [...]
--- OUTSIDE RECORDS SUMMARY | ~2019-10-27 | XMS | Encounter Summary ---
Demographics + + + | Address | [address] | | | [place] [address] | + + + | Home Phone [...] Team Providers + +------+ + | Care Act English Tutor Name | Role | Phone | [...] [address] | | | | | [place], | [place], | | | | | [place] [address] | [place] [address] | | | | | [phone] | [phone] | | | | | | | [...] W | | | | | | [place], | | | | | | [place] [address] | | | | | | [phone] | | | | | | | | +--------+ + + + + | 11/20/ | Implant | Cardiology | Daljit Singletary, | Remote Device | | 2018 | Monitor | | [address] [facility] | Interrogation | | | | | [place], | (Primary Dx); | | | | | [place] [address] | Presence of | | | | | [phone] | permanent cardiac | | | | [...]
--- OUTSIDE RECORDS SUMMARY | ~2019-10-27 | XMS | Encounter Summary ---
Demographics + + + | Address | [address] | | | [place] [address] | + + + | Home Phone [...] Team Providers + +------+ + | Care Paver Layer Name | Role | Phone | [...] [place], | | | | | | [place] [address] | | | | | | [phone] | | | +--------+ + + + [...] | | | | | | [place] [address] | | | | | | [phone] | | | | | | | | +--------+ + + + + | 11/20/ | Implant | Cardiology | Daljit Singletary, | Remote Device | | 2019 | Monitor | | [address] [facility] | Interrogation | | | | | [place], | (Primary Dx); | | | | | [place] [address] | Presence of | | | | | [phone] | permanent cardiac | | | | [...]
--- OUTSIDE RECORDS SUMMARY | ~2019-10-27 | XMS | Encounter Summary ---
Demographics + + + | Address | [address] | | | [place] [address] | + + + | Home Phone [...] + +------+ + | Care Information Technology Officer Name | Role | Phone | [...] | Telephone | [facility] [place] | [place], | Other (not feeling | | 2013 | | [place] [address] | [address] | [place]) | | | | [place], | [place], | | | | | [place] [address] | [place] [address] | | | | | [phone] | [phone] | | | | | | | [...] W | | | | | | [place], | | | | | | [place] [address] | | | | | | [phone] | | | | | | | | +--------+ + + + + | 11/20/ | Implant | Cardiology | Daljit Singletary, | Remote Device | | 2018 | Monitor | | [address] [facility] | Interrogation | | | | | [place], | (Primary Dx); | | | | | [place] [address] | Presence of | | | | | [phone] | permanent cardiac | | | | [...]
--- OUTSIDE RECORDS SUMMARY | ~2019-10-27 | XMS | Encounter Summary ---
Demographics + + + | Address | [address] | | | [place] [address] | + + + | Home Phone [...] Providers + +------+ + | Care Turbine Measurements Engineer Name | Role | Phone | [...] + | 07/01/ | Telephone | [facility] | Daljit Singletary, | Other (EKG) | | 2017 | | CARDIOLOGY [address] | MD [address] | | | | | [place], | [place], | | | | | [place] [address] | [place] [address] | | | | | [phone] | | | | | | | [...] | | | | | | [place] [address] | | | | | | [phone] | | | | | | | | +--------+ + + + + | 11/20/ | Implant | Cardiology | Daljit Singletary, | Remote Device | | 2018 | Monitor | | [address] [facility] | Interrogation | | | | | [place], | (Primary Dx); | | | | | [place] [address] | Presence of | | | | | [phone] | permanent cardiac | | | | [...]
--- OUTSIDE RECORDS SUMMARY | ~2019-10-27 | XMS | Encounter Summary ---
Demographics + + + | Address | [address] | | | [place] [address] | + + + | Home Phone [...] Team Providers + +------+ + | Care Tacking Machine Operator Name | Role | Phone | + +------+ + PCP | Unavailable | + +------+ + Encounter Details +--------+ + + + + | Date | Type | Department | Care Team | Description | +--------+ + + + + | 01/27/ | [facility] | [facility] | Jonathan, | | | 2008 | Encounter | MED CTR EMERGENCY | Martell Cr MD [address] | | | | | CENTER [address] | [place] | | | | | [place] | [place] [address] | | | | | [address] | [phone] | | | | | [phone] | | | +--------+ + + + [...] W | | | | | | [place], | | | | | | [place] [address] | | | | | | [phone] | | | | | | | | +--------+ + + + + | 11/20/ | Implant | Cardiology | Daljit Singletary, | Remote Device | | 2019 | Monitor | | MD [address] | Interrogation | | | | | [place], | (Primary Dx); | | | | | [place] [address] | Presence of | | | | | [phone] | permanent cardiac | | | | [...]
--- OUTSIDE RECORDS SUMMARY | ~2019-10-27 | XMS | Encounter Summary ---
Demographics + + + | Address | [address] | | | [place] [address] | + + + | Home Phone [...] Team Providers + +------+ + | Care Locum Tenens Name | Role | Phone | + [...] | CARDIOLOGY [address] | [address] [place] | Interrogation | | | | [place], | [place], | (Primary Dx); | | | | [place] [address] | [place] [address] | Presence of | | | | [phone] | [phone] | permanent cardiac | | | | [...] | | | | | | [place] [address] | | | | | | [phone] | | | | | | | | +--------+ + + + + | 11/20/ | Implant | Cardiology | Daljit Singletary, | Remote Device | | 2019 | Monitor | | MD [facility] | Interrogation | | | | | [place], | (Primary Dx); | | | | | [place] [address] | Presence of | | | | | [phone] | permanent cardiac | | | | [...]
--- OUTSIDE RECORDS SUMMARY | ~2019-10-27 | XMS | Encounter Summary ---
Demographics + + + | Address | [address] | | | [place] [address] | + + + | Home Phone [...] Providers + +------+ + | Care Machine Stuffer Name | Role | Phone | + +------+ + | Kirk French MD | PCP | | + +------+ + Encounter Details +--------+ + + + + | Date | Type | Department | Care Team | Description | +--------+ + + + + | 06/03/ | Hospital | [facility] | Conversion | Back pain, | | 2014 | Encounter | CONVERSION DEP [address] | Transaction, | unspecified location | | | | [address] | Provider Unknown | | | | | [place], [place] | [phone] | | | | | [address] | (Fax) | | | | | [phone] | | | +--------+ + + + [...] + + + +---------+ + + | [place]-3 Fatty | CAPS, one capsule by | [...] | | | | | | | #[id number], exp 07/2016 | | | | | [...] | | | | | | [place] [address] | | | | | | [phone] | | | | | | | | +--------+ + + + + | 11/20/ | Implant | Cardiology | Daljit Singletary, | Remote Device | | 2019 | Monitor | | MD [address] | Interrogation | | | | | [place], | (Primary Dx); | | | | | [place] [address] | Presence of | | | | | [phone] | permanent cardiac | | | | [...] | Procedure Note | + + | Kevni Kalpesh Imani - 07/07/2019 5:05 AM PDT This is a non-reportable procedure | | without a radiologist report and isused for image storage only | + + documented in this encounter Visit Diagnoses + + | Diagnosis | + + | Back pain, unspecified location | + + documented in this encounter"
--- OUTSIDE RECORDS SUMMARY | ~2019-10-27 | XMS | Encounter Summary ---
Demographics + + + | Address | [address] | | | [place] [address] | + + + | Home Phone [...] Team Providers + +------+ + | Care Gizzard Peeler Name | Role | Phone | + +------+ + | Kirk French MD | PCP | | + +------+ + Encounter Details +--------+ + + + + | Date | Type | Department | Care Team | Description | +--------+ + + + + | 03/15/ | Hospital | [facility] | Conversion | | | 2017 | Encounter | [facility] | Transaction, | | | | | [address] | Provider Unknown | | | | | [address] [place] | [phone] | | | | | [address] | | | | | | [phone] | Kirk French | | | | | | MD Bre[address] | | | | | | [place] [address] [place], | | | | | | [place] [address] | | | | | | [phone] | | | | | | | [...] + + + +---------+ + + | [place]-3 Fatty | CAPS, one capsule by | [...] | | | | | | [place] [address] | | | | | | [phone] | | | | | | | | +--------+ + + + + | 11/20/ | Implant | Cardiology | Daljit Singletary, | Remote Device | | 2019 | Monitor | | [address] [facility] | Interrogation | | | | | [place], | (Primary Dx); | | | | | [place] [address] | Presence of | | | | | [phone] | permanent cardiac | | | | [...]
--- OUTSIDE RECORDS SUMMARY | ~2019-10-27 | XMS | Encounter Summary ---
Demographics + + + | Address | [address] | | | [place] [address] | + + + | Home Phone [...] Providers + +------+ + | Care Tire Buffer Name | Role | Phone | + +------+ + | Kirk French MD | PCP | | + +------+ + Encounter Details +--------+ + + + + | Date | Type | Department | Care Team | Description | +--------+ + + + + | 07/21/ | Hospital | [facility] | Daljit Singletary, | | | 2018 | Encounter | MED CTR NUCLEAR | MD [address] | | | | | MEDICINE [address] | [address] [place], | | | | | [place] | [place] [address] | | | | | [place] [address] | [phone] | | | | | [phone] | | | +--------+ + + + [...] + + + +---------+ + + | [place]-3 Fatty | CAPS, one capsule by | [...] | | | | | | [place] [address] | | | | | | [phone] | | | | | | | | +--------+ + + + + | 11/20/ | Implant | Cardiology | Daljit Singletary, | Remote Device | | 2019 | Monitor | | [address] [facility] | Interrogation | | | | | [place], | (Primary Dx); | | | | | [place] [address] | Presence of | | | | | [phone] | permanent cardiac | | | | [...] | | | | | | Starting [facility] 07/21/18 at 1224, For | | | | | | | 1 dose, Nuclear Medicine | | | | | | + +--------+ + +------+------+ +---+---+ | | | +---+---+ documented in this encounter"
--- OUTSIDE RECORDS SUMMARY | ~2019-10-27 | XMS | Encounter Summary ---
Demographics + + + | Address | [address] | | | [place] [address] | + + + | Home Phone [...] Team Providers + +------+ + | Care Wardrobe Custodian Name | Role | Phone | [...] 2014 | | CARDIOLOGY [address] | PAPER BAG MAKER [address] [place] | edema and chest | | | | [place], | [facility] [place] | pain) | | | | [place] [address] | [address] | | | | | [phone] | | | +--------+ + + + [...] | | | | | [place], | | | | | | [place] [address] | | | | | | [phone] | | | | | | | | +--------+ + + + + | 11/20/ | Implant | Cardiology | Daljit Singletary, | Remote Device | | 2018 | Monitor | | MD [facility] | Interrogation | | | | | [place], | (Primary Dx); | | | | | [place] [address] | Presence of | | | | | [phone] | permanent cardiac | | | | [...]
--- OUTSIDE RECORDS SUMMARY | ~2019-10-27 | XMS | Encounter Summary ---
Demographics + + + | Address | [address] | | | [place] [address] | + + + | Home Phone [...] Providers + +------+ + | Care Dietary Supervisor Name | Role | Phone | + +------+ + PCP | Unavailable | + +------+ + Encounter Details +--------+ + + + + | Date | Type | Department | Care Team | Description | +--------+ + + + + | 01/14/ | Hospital | [facility] [facility] | Deburi, | BACKACHE NOS | | 2004 | Encounter | MEDICAL CENTER | MD [address] | | | | | CLINICAL DECISION | [address] | | | | | [address] | [place] [address] | | | | | [place], [place] | [phone] | | | | | [address] | | | | | | [phone] | | | +--------+ + + + [...] W | | | | | | [place], | | | | | | [place] [address] | | | | | | [phone] | | | | | | | | +--------+ + + + + | 11/20/ | Implant | Cardiology | Daljit Singletary, | Remote Device | | 2019 | Monitor | | MD [address] | Interrogation | | | | | [place], | (Primary Dx); | | | | | [place] [address] | Presence of | | | | | [phone] | permanent cardiac | | | | [...]
--- OUTSIDE RECORDS SUMMARY | ~2019-10-27 | XMS | Encounter Summary ---
Demographics + + + | Address | [address] | | | [place] [address] | + + + | Home Phone [...] Providers + +------+ + | Care Customer Account Technician Name | Role | Phone | [...] + + | 08/19/ | Telephone | [facility] | Silvia, | Other (patient | | 2016 | | CARDIOLOGY [address] | [place] [address] | having issues with | | | | [place], | [place], | high blood pressure) | | | | [place] [address] | [place] [address] | | | | | [phone] | [phone] | | | | | | | [...] | | | | | | [place], | | | | | | [place] [address] | | | | | | [phone] | | | | | | | | +--------+ + + + + | 11/20/ | Implant | Cardiology | Daljit Singletary, | Remote Device | | 2019 | Monitor | | MD [address] | Interrogation | | | | | [place], | (Primary Dx); | | | | | [place] [address] | Presence of | | | | | [phone] | permanent cardiac | | | | [...]
--- OUTSIDE RECORDS SUMMARY | ~2019-10-27 | XMS | Encounter Summary ---
Demographics + + + | Address | [address] | | | [place] [address] | + + + | Home Phone [...] Providers + +------+ + | Care Last Turner Name | Role | Phone | [...] | | | | CENTER [address] | [place], [place] | | | | | [place], [place] | [address] | | | | | [address] | | | | | | [phone] | | | +--------+ + + + [...] new doc you can try over at [facility] documented in this encounter Medications at Time [...] + + + +---------+ + + | Jber-3 Fatty | CAPS, one capsule by | [...] W | | | | | | [address] [place], | | | | | | [place] [address] | | | | | | [phone] | | | | | | | | +--------+ + + + + | 11/20/ | Implant | Cardiology | Daljit Singletary, | Remote Device | | 2019 | Monitor | | MD [address] | Interrogation | | | | | [place], | (Primary Dx); | | | | | [place] [address] | Presence of | | | | | [phone] | permanent cardiac | | | | | | pacemaker; | | | | | | Sinoatrial node | | | | | | dysfunction ([facility]) | | | | | | [...]
--- OUTSIDE RECORDS SUMMARY | ~2019-10-27 | XMS | Encounter Summary ---
Demographics + + + | Address | [address] | | | [place] [address] | + + + | Home Phone [...] Providers + +------+ + | Care Research Compliance Specialist Name | Role | Phone | [...] + + | 07/13/ | Telephone | [facility] | Kirk French | Referral Question | | 2019 | | [facility] | MD Bre[address] | | | | | PRIMARY CARE [address] | [address] | | | | | [address] | [place] [address] | | | | | [place], [place] | [phone] | | | | | [address] | | | | | | [phone] | | | +--------+ + + + [...] | | | | | | [place] [address] | | | | | | [phone] | | | | | | | | +--------+ + + + + | 11/20/ | Implant | Cardiology | Daljit Singletary, | Remote Device | | 2018 | Monitor | | MD [address] | Interrogation | | | | | [facility], | (Primary Dx); | | | | | [place] [address] | Presence of | | | | | [phone] | permanent cardiac | | | | [...]
--- OUTSIDE RECORDS SUMMARY | ~2019-10-27 | XMS | Encounter Summary ---
Demographics + + + | Address | [address] [place] [address] | | | [place] [address] | + + + | Home Phone [...] [place] | | | | | [address] | | + + + + + Care Team Providers + +------+ + | Care Captain'S Assistant Name | Role | Phone | [...] as of this encounter Progress Notes Interface, Transcriptionist In - 07/19/2006 3:05 AM PDTCLINIC DATE: 06/13/2002 [facility] REFERRING PHYSICIAN: Eugene Vera D.O. [address] [place] [address] Mr. Sanchez is a new patient. He [...] he desires to proceed. Martell Allen M.D. ELIZBAETH / KATTY [id number] / [id number] / [id number] / [id number] cc: Eugene Vera D.O. [address] [place] [id number] signed by Interface, Transcriptionist In at 07/19/2006 3:0 5 AM PDTdocumented in this encounter Plan of Treatment Not on filedocumented as of this encounter Visit Diagnoses Not on filedocumented in this encounter
--- OUTSIDE RECORDS SUMMARY | ~2019-10-27 | XMS | Encounter Summary ---
Demographics + + + | Address | [address] | | | [place] [address] | + + + | Home Phone [...] Providers + +------+ + | Care Auto Painter Helper Name | Role | Phone | [...] | | | pain | [address] | [address] | | | | | Procedures | [place] | [place], | | | | | [place] Nuclear | [place], [place] | [place] | | | | | Stress Test | [address] | [address] | | | | | (Vasodilator | Phone: | Phone: | | | | | ) CHG | [phone] | [phone] | | | | | MYOCARDIAL | Fax: | Fax: | | | | | SPECT | [phone] | [phone] | | | | | MULTIPLE | [...] 2012 | | CARDIOLOGY [address] | PROGRAM ATTENDANT [address] | interactions, chest | | | | [place], | [place], [place] | pain) | | | | [place] [address] | [address] | | | | | [phone] | | | +--------+ + + + [...] | | | | | | [place] [address] | | | | | | [phone] | | | | | | | | +--------+ + + + + | 11/20/ | Implant | Cardiology | Daljit Singletary, | Remote Device | | 2018 | Monitor | | MD Sim [place] [address] | Interrogation | | | | | [place], | (Primary Dx); | | | | | [place] [address] | Presence of | | | | | [phone] | permanent cardiac | | | | [...] At | + + + | [facility] Diagnostic Imaging | [place] | | Department [address] [place] [address] [facility] | | [ rep ct street[address]] [ rep [facility] | | st zip] Signed | - IMAGING | | | | | Patient Name: MOE GAY | | | Physician: JACKLYN : 1960 Age: 53 Sex: M Unit | | | #: [id number] Exam Date: 12/06/13 Location: | | | [facility] Report #: [id number] Page: | | | %(RAD)RES..mtdd.print.filter("pg") of %(RAD) | | | RES..mtdd.print.filter("tpg") | | | | | | Accession Number: [id number] | | | PERSANTINE SESTAMIBI STRESS TEST, [...] Transcribed Date/Time: 12/07/2013 08:18 | | | Bankruptcy Legal Assistant: <<Signature on File>> | | | | | | Daljit Singletary MD [facility] FAS12/07/13 1321 <Electronically signed | | | by Daljit Singletary MD, [facility], [facility], [facility], [facility]> Daljit | | | MD Gemini [facility] ADE[facility] 12/07/13 0701 Bankruptcy Legal Assistant: Jessica | | | Rzczlbkifgqxx56/16/14 0818 PARISA Garcia | | + + + + + + + + | Performing | Address | City/State/Zipcode | Phone Number | | Organization | | | | + + + + + | [facility] | [address] | [place] | [phone] | | [facility] | | [address] | | | - IMAGING | | | | + + + + + documented in this encounter Visit Diagnoses + + | Diagnosis | + + | Other chest pain - Primary | + + documented in this encounter
--- OUTSIDE RECORDS SUMMARY | ~2019-10-27 | XMS | Encounter Summary ---
Demographics + + + | Address | [address] | | | [place] [address] | + + + | Home Phone [...] Providers + +------+ + | Care Farm Machinery Set Up Mechanic Name | Role | Phone | [...] [address] | | | | | | [place], [place] | (Fax) | | | | | [address] | | | | | | [phone] | | | +--------+ + + + [...] | | | | | | [place] [id number] | | | | | | [phone] | | | | | | | | +--------+ + + + + | 11/20/ | Implant | Cardiology | Daljit Singletary, | Remote Device | | 2018 | Monitor | | [facility] | Interrogation | | | | | [place], | (Primary Dx); | | | | | [place] [address] | Presence of | | | | | [phone] | permanent cardiac | | | | [...]
--- OUTSIDE RECORDS SUMMARY | ~2019-10-27 | XMS | Encounter Summary ---
Demographics + + + | Address | [address] | | | [place] [address] | + + + | Home Phone [...] Team Providers + +------+ + | Care Nurse Unit Manager Name | Role | Phone [...] + + | 12/09/ | Telephone | [facility] | Emmanuel Daniel MD | Appointment (EGD, | | 2017 | | GASTROENTEROLOGY | [address], [place] | colon Rescheduled to | | | | [address] [place] | [address] [place] | December 24 due to | | | | [address] [place] | [address] | illness) | | | | [address] | | | | | | [phone] | | | +--------+ + + + [...] | | | | | | [place] [address] | | | | | | [phone] | | | | | | | | +--------+ + + + + | 11/20/ | Implant | Cardiology | Daljit Singletary, | Remote Device | | 2019 | Monitor | | MD Sim [facility] | Interrogation | | | | | [address] [place], | (Primary Dx); | | | | | [place] [address] | Presence of | | | | | [phone] | permanent cardiac | | | | [...]
--- OUTSIDE RECORDS SUMMARY | ~2019-10-27 | XMS | Encounter Summary ---
Demographics + + + | Address | [address] | | | [place] [address] | + + + | Home Phone [...] Team Providers + +------+ + | Care Rotor Casting Machine Operator Name | Role | Phone | + +------+ + PCP | Unavailable | + +------+ + Encounter Details +--------+ + + + + | Date | Type | Department | Care Team | Description | +--------+ + + + + | 01/14/ | Hospital | [facility] | Deburi, | BACKACHE NOS | | 2004 | Encounter | MEDICAL CENTER | MD Tai [address] | | | | | CLINICAL DECISION | [place] | | | | | [address] | [place] [address] | | | | | [place], [place] | [phone] | | | | | [address] | | | | | | [phone] | | | +--------+ + + + [...] W | | | | | | [place], | | | | | | [place] [address] | | | | | | [phone] | | | | | | | | +--------+ + + + + | 11/20/ | Implant | Cardiology | Daljit Singletary, | Remote Device | | 2019 | Monitor | | MD [address] | Interrogation | | | | | [place], | (Primary Dx); | | | | | [place] [address] | Presence of | | | | | [phone] | permanent cardiac | | | | [...]
--- OUTSIDE RECORDS SUMMARY | ~2019-10-27 | XMS | Encounter Summary ---
Demographics + + + | Address | [address] | | | [place] [address] | + + + | Home Phone [...] Providers + +------+ + | Care Guide Escort Name | Role | Phone | [...] Refill | | 2013 | | [facility] [place] | DO [address] | | | | | [address] | [place] | | | | | [place] | [address] | | | | | [address] | | | | | | [phone] | | | +--------+--------+ + + + [...] W | | | | | | [place], | | | | | | [place] [address] | | | | | | [phone] | | | | | | | | +--------+ + + + + | 11/20/ | Implant | Cardiology | Daljit Singletary, | Remote Device | | 2018 | Monitor | | [facility] | Interrogation | | | | | [place], | (Primary Dx); | | | | | [place] [address] | Presence of | | | | | [phone] | permanent cardiac | | | | [...]
--- OUTSIDE RECORDS SUMMARY | ~2019-10-27 | XMS | Encounter Summary ---
Demographics + + + | Address | [address] | | | [place] [address] | + + + | Home Phone [...] Team Providers + +------+ + | Care Answering Service Operator Name | Role | Phone [...] + + | 08/23/ | Telephone | [facility] | AnshujohnsoncherelleDaljit, | Other (edema is | | 2015 | | CARDIOLOGY [address] | MD [address] | blood clots) | | | | [place], | [place], | | | | | [place] [address] | [place] [address] | | | | | [phone] | [phone] | | | | | | | [...] | | | | | | [place] [address] | | | | | | [phone] | | | | | | | | +--------+ + + + + | 11/20/ | Implant | Cardiology | Daljit Singletary, | Remote Device | | 2018 | Monitor | | [facility] | Interrogation | | | | | [facility], | (Primary Dx); | | | | | [place] [address] | Presence of | | | | | [phone] | permanent cardiac | | | | [...]
--- OUTSIDE RECORDS SUMMARY | ~2019-10-27 | XMS | Encounter Summary ---
Demographics + + + | Address | [address] | | | [place] [address] | + + + | Home Phone [...] Team Providers + +------+ + | Care Trap Puller Name | Role | Phone | [...] + + | 02/15/ | Office | [facility] | Jay Cohn PA | DIDIER (obstructive | | 2012 | Visit | SLEEP DISORDER [address] | [address] | sleep apnea) | | | | [address] [place] | [place] | (Primary Dx) | | | | [place] [address] | [address] | | | | | [phone] | | | +--------+---------+ + + + [...] AM PDTGo to [facility] for replacement equipment including: Nasal [...] pillows obtained from: [facility] in [place] pressure is: 13 cm CPAP download shows [...] to go to [facility] in [place] to replace his equipment, but it had [...] to go to [facility] in [place] to g et a new mask and filter. He is to work toward wearing his CPAP 100% of the time he is asle ep. I will follow up again in 1 month, sooner prn. Fifteen minutes were spent [id number], wi th the majority of time spent [...] W | | | | | | [place], | | | | | | [place] [address] | | | | | | [phone] | | | | | | | | +--------+ + + + + | 11/20/ | Implant | Cardiology | Daljit Singletary, | Remote Device | | 2019 | Monitor | | [address] [place] | Interrogation | | | | | [place], | (Primary Dx); | | | | | [place] [address] | Presence of | | | | | [phone] | permanent cardiac | | | | [...]
--- OUTSIDE RECORDS SUMMARY | ~2019-10-27 | XMS | Encounter Summary ---
Demographics + + + | Address | [address] | | | [place] [address] | + + + | Home Phone [...] Team Providers + +------+ + | Care Management Nurse Rn Name | Role | Phone | [...] + | 03/24/ | Telephone | [facility] | Maunie, | Other (chest pain) | | 2018 | | CARDIOLOGY [address] | PARISA [place] [address] | | | | | [place], | [place], | | | | | [place] [address] | [place] [address] | | | | | [phone] | [phone] | | | | | | | [...] | | | | | | [place] [address] | | | | | | [phone] | | | | | | | | +--------+ + + + + | 11/20/ | Implant | Cardiology | Daljit Singletary, | Remote Device | | 2019 | Monitor | | MD [address] | Interrogation | | | | | [place], | (Primary Dx); | | | | | [place] [address] | Presence of | | | | | [phone] | permanent cardiac | | | | [...]
--- OUTSIDE RECORDS SUMMARY | ~2019-10-27 | XMS | Encounter Summary ---
Demographics + + + | Address | [address] | | | [place] [address] | + + + | Home Phone [...] Team Providers + +------+ + | Care Statistical Methods Teacher Name | Role | Phone | [...] + | 01/24/ | Telephone | [facility] | Daljit Singletary, | Other | | 2019 | | CARDIOLOGY [address] | MD [address] [place] | | | | | [place], | [place], | | | | | [place] [address] | [place] [address] | | | | | [phone] | [phone] | | | | | | | [...] | | | | | | [place] [address] | | | | | | [phone] | | | | | | | | +--------+ + + + + | 11/20/ | Implant | Cardiology | Daljit Singletary, | Remote Device | | 2018 | Monitor | | MD [address] [place] [address] | Interrogation | | | | | [address] [place], | (Primary Dx); | | | | | [place] [address] | Presence of | | | | | [phone] | permanent cardiac | | | | [...]
--- OUTSIDE RECORDS SUMMARY | ~2019-10-27 | XMS | Encounter Summary ---
Demographics + + + | Address | [address] | | | [place] [address] | + + + | Home Phone [...] Providers + +------+ + | Care Student Life Coordinator Name | Role | Phone | [...] + + | 08/31/ | Refill | [facility] | Kirk French | Medication Refill | | 2018 | | [facility] | MD Bre[address] | | | | | PRIMARY CARE [address] | [address] | | | | | [address] | [place] [address] | | | | | [place], [place] | [phone] | | | | | [address] | | | | | | [phone] | | | +--------+--------+ + + + [...] | | | | | | [place] [address] | | | | | | [phone] | | | | | | | | +--------+ + + + + | 11/20/ | Implant | Cardiology | Daljit Singletary, | Remote Device | | 2018 | Monitor | | MD [address] | Interrogation | | | | | [facility] [place], | (Primary Dx); | | | | | [place] [address] | Presence of | | | | | [phone] | permanent cardiac | | | | [...]
--- OUTSIDE RECORDS SUMMARY | ~2019-10-27 | XMS | Encounter Summary ---
Demographics + + + | Address | [address] | | | [place] [address] | + + + | Home Phone [...] Providers + +------+ + | Care Financial Investment Adviser Name | Role | Phone | [...] | CARDIOLOGY [address] | [address] [place] | Interrogation | | | | [place], | [place], | (Primary Dx); | | | | [place] [address] | [place] [address] | Presence of | | | | [phone] | permanent cardiac | | | | [...] | | | | | | [place] [address] | | | | | | [phone] | | | | | | | | +--------+ + + + + | 11/20/ | Implant | Cardiology | Daljit Singletary, | Remote Device | | 2019 | Monitor | | MD [address] [facility] | Interrogation | | | | | [place], | (Primary Dx); | | | | | [place] [address] | Presence of | | | | | [phone] | permanent cardiac | | | | [...] | + + + | Dajlit | MODESTO | | MD Gemini 01/11/2019 [...]
--- OUTSIDE RECORDS SUMMARY | ~2019-10-27 | XMS | Encounter Summary ---
Demographics + + + | Address | [address] | | | [place] [address] | + + + | Home Phone [...] Providers + +------+ + | Care Facilities Painter Name | Role | Phone | + [...] loss | [address] | [address], | | | | | Anxiety | [address] | [address] | | | | | disorder, | [address] | [place], | | | | | unspecified | [place], [place] | [place] [address] | | | | | Chronic | [address] | Phone: | | | | | pain | Phone: | [phone] | | | | | syndrome | [phone] | Fax: | | | | | Procedures | Fax: | [phone] | | | | | office visit | [phone] | | +--------+--------+ + + + + Encounter Details +--------+---------+ + + + | Date | Type | Department | Care Team | Description | +--------+---------+ + + + | 12/26/ | Office | [facility] | Emmanuel Daniel MD | Functional diarrhea | | 2019 | Visit | GASTROENTEROLOGY | [address], [place] | (Primary Dx); | | | | [address] [place] | [address] [place], [place] | Gastrointestinal | | | | [address] [place], [place] | [address] | hemorrhage | | | | [address] | | associated with | | | | [phone] | | anorectal source; | | | [...] | | | | | | [place] [address] | | | | | | [phone] | | | | | | | | +--------+ + + + + | 11/20/ | Implant | Cardiology | Daljit Singletary, | Remote Device | | 2019 | Monitor | | [address] [facility] | Interrogation | | | | | [address] [place], | (Primary Dx); | | | | | [place] [address] | Presence of | | | | | [phone] | permanent cardiac | | | | [...]
--- OUTSIDE RECORDS SUMMARY | ~2019-10-27 | XMS | Encounter Summary ---
Demographics + + + | Address | [address] | | | [place] [address] | + + + | Home Phone [...] Team Providers + +------+ + | Care Calculating Machine Mechanic Name | Role | Phone [...] | (Fax) | | | | | [address] | | | | | | [phone] | | | +--------+ + + + [...] | | | | | | [place] [address] | | | | | | [phone] | | | | | | | | +--------+ + + + + | 11/20/ | Implant | Cardiology | Daljit Singletary, | Remote Device | | 2018 | Monitor | | [address] [facility] | Interrogation | | | | | [address] [place], | (Primary Dx); | | | | | [place] [address] | Presence of | | | | | [phone] | permanent cardiac | | | | [...]
--- OUTSIDE RECORDS SUMMARY | ~2019-10-27 | XMS | Encounter Summary ---
Demographics + + + | Address | [address] | | | [place] [address] | + + + | Home Phone [...] Team Providers + +------+ + | Care Hawk Missile System Crewmember Name | Role | Phone | [...] 2015 | | CARDIOLOGY [address] | NEWSCAST DIRECTOR [address] | | | | | [place], | [place], [place] | | | | | [place] [address] | [address] | | | | | [phone] | | | +--------+--------+ + + + [...] | | | | | | [place], | | | | | | [place] [address] | | | | | | [phone] | | | | | | | | +--------+ + + + + | 11/20/ | Implant | Cardiology | Daljit Singletary, | Remote Device | | 2018 | Monitor | | [address] | Interrogation | | | | | [place], | (Primary Dx); | | | | | [place] [address] | Presence of | | | | | [phone] | permanent cardiac | | | | [...]
--- OUTSIDE RECORDS SUMMARY | ~2019-10-27 | XMS | Encounter Summary ---
Demographics + + + | Address | [address] | | | [place] [address] | + + + | Home Phone [...] Team Providers + +------+ + | Care Locomotive Driver Name | Role | Phone | [...] + + | 10/25/ | Telephone | [facility] | Silvia, | Other (patient has | | 2013 | | CARDIOLOGY [address] | Janeen MILITARY POLICE OFFICER [address] | changed his mind) | | | | [facility] [place], | [facility] [place], | | | | | [place] [address] | [place] [address] | | | | | [phone] | [phone] | | | | | | | [...] | | | | | [facility] [place], | | | | | | [place] [address] | | | | | | [phone] | | | | | | | | +--------+ + + + + | 11/20/ | Implant | Cardiology | Daljit Singletary, | Remote Device | | 2018 | Monitor | | [facility] | Interrogation | | | | | [place], | (Primary Dx); | | | | | [place] [address] | Presence of | | | | | [phone] | permanent cardiac | | | | [...]
--- OUTSIDE RECORDS SUMMARY | ~2019-10-27 | XMS | Encounter Summary ---
Demographics + + + | Address | [address] | | | [place] [address] | + + + | Home Phone [...] Providers + +------+ + | Care Field Crop Farm Worker Name | Role | Phone | [...] | 02/15/ | Office | [facility] [place] | Silvia, | Symptomatic PVCs | | 2012 | Visit | CARDIOLOGY [address] | PARISA [address] | (Primary Dx); | | | | [place], | [place], | Bradycardia; HTN | | | | [place] [address] | [place] [address] | (hypertension) | | | | [phone] | [phone] | | | | | | | [...] at which time patient was going to [place] for counterintelligence/humint specialist co nsult and PVC ablation. Since [...] tablet Take 1,000 mg by mouth Daily. Phoenix-3 Fatty Acids (SALMON OIL-1000 PO) CAPS, one [...] arrhythmia performed by Dr. Gambino at [facility] on 01/30/2013. Patient had spontaneous PVCs from [...] to go back in 3 days to [place] for an attempt of ablation under general [...] He is in a class II of [place] 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 There is no [...] been encouraged to keep his appointment with counterintelligence/humint specialist this coming y to attempt ablation therapy. 4. Follow up appointment in 4-6 weeks. I, PARISA Russell, saw this patient under the direct supervision of Daljit Singletary MD Portions of this report were transcribed using voice recognition software. Every effort wa s made to ensure accuracy; however, inadvertent computerized chiropractic neurologist errors may be pre sent. documented in this encounter Plan of Treatment +--------+ + + + + | Date | Type | Specialty | Care Team | Description | +--------+ + + + + | 11/09/ | Office | Cardiology | Silvia, | | | 2019 | Visit | | PARISA [address] | | | | | | [place], | | | | | | [place] [address] | | | | | | [phone] | | | | | | | | +--------+ + + + + | 11/20/ | Implant | Cardiology | Daljit Singletary, | Remote Device | | 2019 | Monitor | | [address] [facility] | Interrogation | | | | | [address] [place], | (Primary Dx); | | | | | [place] [address] | Presence of | | | | | [phone] | permanent cardiac | | | | [...]
--- OUTSIDE RECORDS SUMMARY | ~2019-10-27 | XMS | Encounter Summary ---
Demographics + + + | Address | [address] | | | [place] [address] | + + + | Home Phone [...] Team Providers + +------+ + | Care Shactor Name | Role | Phone | + [...] [address] | | | | | [place], | [place], | | | | | [place] [address] | [place] [address] | | | | | [phone] | [phone] | | | | | | | [...] | | | | | | [place], | | | | | | [place] [address] | | | | | | [phone] | | | | | | | | +--------+ + + + + | 11/20/ | Implant | Cardiology | Daljit Singletary, | Remote Device | | 2018 | Monitor | | [address] [place] | Interrogation | | | | | [place], | (Primary Dx); | | | | | [place] [address] | Presence of | | | | | [phone] | permanent cardiac | | | | [...]
--- OUTSIDE RECORDS SUMMARY | ~2019-10-27 | XMS | Encounter Summary ---
Demographics + + + | Address | [address] | | | [place] [address] | + + + | Home Phone [...] Team Providers + +------+ + | Care Olive Pitter Name | Role | Phone | + [...] | SLEEP DISORDER 401 | [address] | Dx) | | | | [address] [place] | [place] | | | | | [place] [address] | [address] | | | | | [phone] | | | +--------+---------+ + + + [...] pillows obtained from: [facility] in [place] pressure is: 13 cm CPAP download shows [...] to go to [facility] in [place] to have them download his memory card. I will readjust his pressure, if necessary. I will call him with the results. He is to work toward wearing his CPAP 100% of the time he is asleep. I will follow up again in 1 month, sooner prn. Fifteen minutes were spent [id number], wi th the majority of time spent [...] W | | | | | | [place], | | | | | | [place] [address] | | | | | | [phone] | | | | | | | | +--------+ + + + + | 11/20/ | Implant | Cardiology | Daljit Singletary, | Remote Device | | 2018 | Monitor | | [facility] | Interrogation | | | | | [place], | (Primary Dx); | | | | | [place] [address] | Presence of | | | | | [phone] | permanent cardiac | | | | [...]
--- OUTSIDE RECORDS SUMMARY | ~2019-10-27 | XMS | Encounter Summary ---
Demographics + + + | Address | [address] | | | [place] [address] | + + + | Home Phone [...] Providers + +------+ + | Care Financial Reporting Analyst Name | Role | Phone | + +------+ + | Michael Amanda DO | PCP | | + +------+ + Encounter Details +--------+ + + + + | Date | Type | Department | Care Team | Description | +--------+ + + + + | 06/26/ | Hospital | [facility] | Michael Amanda, | Diplopia | | 2012 | Encounter | MED CTR LABORATORY | DO [address] | | | | | [address] [place] | [place], [place] | | | | | [place], [place] | [address] | | | | | [address] | | | | | | [phone] | | | +--------+ + + + [...] + + +---------+ + + | [place]-3 Fatty | CAPS, one capsule by | [...] W | | | | | | [address] [place], | | | | | | [place] [address] | | | | | | [phone] | | | | | | | | +--------+ + + + + | 11/20/ | Implant | Cardiology | Daljit Singletary, | Remote Device | | 2018 | Monitor | | [address] [facility] | Interrogation | | | | | [place], | (Primary Dx); | | | | | [place] [address] | Presence of | | | | | [phone] | permanent cardiac | | | | [...] + | [facility] | [address] | [place], [place] | [phone] | | [facility] | | [address] | | | - LABORATORY | | | | + + + + + | [facility] | [address] | [place], [place] | | | [facility] | | [address] | | | - LABORATORY | | [...] on the Javid | uIU/mL | [facility] | | | | Aldo [...] [address] | [place] | [phone] | | [facility] | | [address] | | | - LABORATORY | | | | + + + + + | [facility] | [address] | [place] | | | [facility] | | [address] | | | - LABORATORY | | [...] + | [facility] | [address] | [place] | [phone] | | [facility] | | [address] | | | - LABORATORY | | | | + + + + + | [facility] | [address] | [place], [place] | | | [facility] | | [address] | | | - LABORATORY | | [...] + | [facility] | [address] | [place] | [phone] | | [facility] | | [address] | | | - LABORATORY | | | | + + + + + | [facility] | [address] | [place], [place] | | | [facility] | | [address] | | | - LABORATORY | | [...] + | [facility] | [address] | [place] | [phone] | | [facility] | | [address] | | | - LABORATORY | | | | + + + + + | [facility] | [address] | [place] | | | [facility] | | [address] | | | - LABORATORY | | [...] on the Javid | uIU/mL | [facility] | | | | [facility] | | MEDICAL | | | [...] + | [facility] | [address] | [place] | [phone] | | [facility] | | [address] | | | - LABORATORY | | | | + + + + + | [facility] | [address] | [place] | | | [facility] | | [address] | | | - LABORATORY | | | | + + + + + documented in this encounter Visit Diagnoses + + | Diagnosis | + + | Diplopia | + + documented in this encounter"
--- OUTSIDE RECORDS SUMMARY | ~2019-10-27 | XMS | Encounter Summary ---
Demographics + + + | Address | [address] | | | [place] [address] | + + + | Home Phone [...] Providers + +------+ + | Care Advanced Nursing Professor Name | Role | Phone | [...] + + | 08/30/ | Refill | [facility] | Kirk French | Medication Refill | | 2019 | | [facility] | MD [address] | | | | | PRIMARY CARE [address] | [address] | | | | | [address] | [place] [address] | | | | | [place], [place] | [phone] | | | | | [address] | | | | | | [phone] | | | +--------+--------+ + + + [...] | | | | | | [place] [address] | | | | | | [phone] | | | | | | | | +--------+ + + + + | 11/20/ | Implant | Cardiology | Daljit Singletary, | Remote Device | | 2018 | Monitor | | MD [address] | Interrogation | | | | | [place], | (Primary Dx); | | | | | [place] [address] | Presence of | | | | | [phone] | permanent cardiac | | | | [...]
--- OUTSIDE RECORDS SUMMARY | ~2019-10-27 | XMS | Encounter Summary ---
Demographics + + + | Address | [address] | | | [place] [address] | + + + | Home Phone [...] Team Providers + +------+ + | Care Ferryboat Operator Cable Name | Role | Phone | + [...] + + | 07/12/ | Office | [facility] | Michael Amanda, | Preventative health | | 2013 | Visit | [facility] [place] | DO [address] | care (Primary Dx); | | | | [address] | [place], [place] | Prostate cancer | | | | [place], [place] | [address] | screening; | | | | [address] | | Hypercholesterolemia | | | | [phone] | | ; Hypertension; | | | [...] clear cause was found. He has seen blood bank laboratory professional and has a rechec k plan. Possible [...] W | | | | | | [place], | | | | | | [place] [address] | | | | | | [phone] | | | | | | | | +--------+ + + + + | 11/20/ | Implant | Cardiology | Daljit Singletary, | Remote Device | | 2019 | Monitor | | MD [address] [place] | Interrogation | | | | | [place], | (Primary Dx); | | | | | [place] [address] | Presence of | | | | | [phone] | permanent cardiac | | | | [...] - Primary Routine general medical examination at [facility] | | care facility | + [...]
--- OUTSIDE RECORDS SUMMARY | ~2019-10-27 | XMS | Encounter Summary ---
Demographics + + + | Address | [address] | | | [place] [address] | + + + | Home Phone [...] Providers + +------+ + | Care Coordinator Of Health Services Name | Role | Phone | + +------+ + PCP | Unavailable | + +------+ + Encounter Details +--------+ + + + + | Date | Type | Department | Care Team | Description | +--------+ + + + + | 10/29/ | Hospital | [facility] | Pia Akhtar | | | 2003 | Encounter | CONVERSION DEP [address] | MD [address] | | | | | [address] | [address] | | | | | [place] | [place] [address] | | | | | [address] | [phone] | | | | | [phone] | | | +--------+ + + + [...] | | | | | | [place] [address] | | | | | | [phone] | | | | | | | | +--------+ + + + + | 11/20/ | Implant | Cardiology | Daljit Singletary, | Remote Device | | 2019 | Monitor | | MD [address] | Interrogation | | | | | [address] [place], | (Primary Dx); | | | | | [place] [address] | Presence of | | | | | [phone] | permanent cardiac | | | | [...]
--- OUTSIDE RECORDS SUMMARY | ~2019-10-27 | XMS | Encounter Summary ---
Demographics + + + | Address | [address] | | | [place] [address] | + + + | Home Phone [...] Team Providers + +------+ + | Care Appellate Conferee Name | Role | Phone | + +------+ + PCP | Unavailable | + +------+ + Encounter Details +--------+ + + + + | Date | Type | Department | Care Team | Description | +--------+ + + + + | 09/13/ | [facility] | [facility] | Jonathan, | | | 2009 | Encounter | MED CTR EMERGENCY | Martell Cr MD [address] | | | | | CENTER [address] | [place] | | | | | [place] | [place] [address] | | | | | [address] | [phone] | | | | | [phone] | | | +--------+ + + + [...] | | | | | [place], | | | | | | [place] [address] | | | | | | [phone] | | | | | | | | +--------+ + + + + | 11/20/ | Implant | Cardiology | Daljit Singletary, | Remote Device | | 2019 | Monitor | | MD [address] | Interrogation | | | | | [place], | (Primary Dx); | | | | | [place] [address] | Presence of | | | | | [phone] | permanent cardiac | | | | [...]
--- OUTSIDE RECORDS SUMMARY | ~2019-10-27 | XMS | Encounter Summary ---
Demographics + + + | Address | [address] | | | [place] [address] | + + + | Home Phone [...] Team Providers + +------+ + | Care Institution Director Name | Role | Phone | + +------+ + | Kirk French MD | PCP | | + +------+ + Encounter Details +--------+ + + + + | Date | Type | Department | Care Team | Description | +--------+ + + + + | 07/21/ | Hospital | [facility] | Daljit Singletary, | Palpitations; | | 2018 | Encounter | MED CTR NUCLEAR | MD [address] | Presence of | | | | MEDICINE [address] | [address] [place], | permanent cardiac | | | | [place], | [place] [address] | pacemaker; | | | | [address] | [phone] | Sinoatrial node | | | | [phone] | | dysfunction (HCC) | +--------+ + [...] + + + +---------+ + + | [place]-3 Fatty | CAPS, one capsule by [...] | | | | | | [place] [address] | | | | | | [phone] | | | | | | | | +--------+ + + + + | 11/20/ | Implant | Cardiology | SunshinecherelleDaljit, | Remote Device | | 2019 | Monitor | | [address] [facility] | Interrogation | | | | | [place], | (Primary Dx); | | | | | [place] [address] | Presence of | | | | | [phone] | permanent cardiac | | | | [...] 08/25/2018 13:12 Wireless even study from | [facility] | | 07/21 until 08/22/2018. Baseline EKG [...]
--- OUTSIDE RECORDS SUMMARY | ~2019-10-27 | XMS | Encounter Summary ---
Demographics + + + | Address | [address] | | | [place] [address] | + + + | Home Phone [...] Team Providers + +------+ + | Care Fiberglass Fabricator Name | Role | Phone | + +------+ + PCP | Unavailable | + +------+ + Encounter Details +--------+ + + + + | Date | Type | Department | Care Team | Description | +--------+ + + + + | 04/28/ | [facility] | [facility] | Jonathan, | | | 2008 | Encounter | MED CTR EMERGENCY | Martell Cr MD [address] | | | | | CENTER [address] | [place] | | | | | [place] | [place] [address] | | | | | [address] | [phone] | | | | | [phone] | | | +--------+ + + + [...] W | | | | | | [place], | | | | | | [place] [address] | | | | | | [phone] | | | | | | | | +--------+ + + + + | 11/20/ | Implant | Cardiology | Daljit Singletary, | Remote Device | | 2019 | Monitor | | MD [address] | Interrogation | | | | | [place] [place], | (Primary Dx); | | | | | [place] [address] | Presence of | | | | | [phone] | permanent cardiac | | | | [...]
--- OUTSIDE RECORDS SUMMARY | ~2019-10-27 | XMS | Encounter Summary ---
Demographics + + + | Address | [address] | | | [place] [address] | + + + | Home Phone [...] Providers + +------+ + | Care Tube Drawer Name | Role | Phone | + +------+ + PCP | Unavailable | + +------+ + Encounter Details +--------+ + + + + | Date | Type | Department | Care Team | Description | +--------+ + + + + | 09/08/ | [facility] | [facility] | Naresh Mckeon | | | 1998 | Encounter | MED CTR SLEEP | MD Chaya [address] | | | | | CENTER [address] | [place] | | | | | [place] | [place] [address] | | | | | [address] | [phone] | | | | | [phone] | | | +--------+ + + + [...] | | | | | | [place] [address] | | | | | | [phone] | | | | | | | | +--------+ + + + + | 11/20/ | Implant | Cardiology | Daljit Singletary, | Remote Device | | 2019 | Monitor | | MD [address] | Interrogation | | | | | [place], | (Primary Dx); | | | | | [place] [address] | Presence of | | | | | [phone] | permanent cardiac | | | | [...]
--- OUTSIDE RECORDS SUMMARY | ~2019-10-27 | XMS | Encounter Summary ---
Demographics + + + | Address | [address] | | | [place] [address] | + + + | Home Phone [...] Providers + +------+ + | Care Armature Coil Winder Name | Role | Phone | + +------+ + | Kirk French MD | PCP | | + +------+ + Encounter Details +--------+---------+ + + + | Date | Type | Department | Care Team | Description | +--------+---------+ + + + | 09/26/ | Office | [facility] | Kirk French | Weight loss (Primary | | 2018 | Visit | [facility] | MD [address] | Dx); Bipolar | | | | PRIMARY CARE [address] | affective disorder, | | | | [address] | [place] [address] | remission status | | | | [place], [place] | [phone] | unspecified (HCC); | | | | [address] | | Mixed anxiety | | | | [phone] | | depressive disorder; | | | [...] [employer] Peptic ulcer disease Premature ventricular contraction [facility] health care 06/26/2013 LAST PSA:12/16/2010 [...] CV LHC; Surgeon: Daljit Singletary MD; Location: [facility] CV LAB CARDIAC CATHERIZATION N/A 01/25/2019 Procedure: CV Cor Angio; Surgeon: Daljit Singletary MD; Location: [facility] CV LAB COLONOSCOPY N/A 12/24/2017 Procedure: COLONOSCOPY; Surgeon: Emmanuel Daniel MD; Location: [facility] MEDICAL PROCEDURE UNIT COLONOSCOPY N/A 01/05/2019 Procedure: COLONOSCOPY; Surgeon: Emmanuel Daniel MD; Location: [facility] MEDICAL PROCEDURE UNIT EGD 12/24/2017 HARDWARE [...] Procedure: EGD; Surgeon: Emmanuel Daniel MD; Location: [facility] MEDICAL PROCEDURE UNIT UPPER GASTROINTESTINAL ENDOSCOPY N/A 01/05/2019 Procedure: EGD; Surgeon: Emmanuel Daniel MD; Location: [facility] MEDICAL PROCEDURE UNIT URETEROSCOPY Left 04/13/2019 Procedure: Cystoscopy, Left ureteroscopy with laser lithotripsy, Left ureteral stent place ment; Surgeon: Matthew Uriarte MD; Location: [facility] MAIN OR VASECTOMY Social History Socioeconomic [...] ONE TABLET UNDER THE TONGUE EVERY 5 MO NUTES NEEDED FOR CHEST PAIN 250 tablet 0 [place]-3 Fatty Acids (SALMON OIL-1000 PO) CAPS, [...] PLT 169 06/02/2019 No results found for: [id number] No results found for: FOLATE No results [...] Co multiple ER visits Going again to [facility] tomorrow Already followed by GI [...] dollars a month. We will defer to [facility], perhaps to have some sort [...] | | | | | | [place] [address] | | | | | | [phone] | | | | | | | | +--------+ + + + + | 11/20/ | Implant | Cardiology | Daljit Singletary, | Remote Device | | 2018 | Monitor | | MD [address] | Interrogation | | | | | [place], | (Primary Dx); | | | | | [place] [address] | Presence of | | | | | [phone] | permanent cardiac | | | | [...]
--- OUTSIDE RECORDS SUMMARY | ~2019-10-27 | XMS | Encounter Summary ---
Demographics + + + | Address | [address] | | | [place] [address] | + + + | Home Phone [...] Team Providers + +------+ + | Care Printer Maintainer Name | Role | Phone | + +------+ + PCP | Unavailable | + +------+ + Encounter Details +--------+ + + + + | Date | Type | Department | Care Team | Description | +--------+ + + + + | 01/21/ | Emergency | [facility] | Kirill Dominique | Unspecified Chest | | 2009 | | MEDICAL CENTER | MD Jon[address] | Pain | | | | EMERGENCY CENTER | [address] [place] | | | | | [address] | [address] | | | | | [place] | [phone] | | | | | [address] | | | | | | [phone] | | | +--------+ + + + [...] W | | | | | | [place], | | | | | | [place] [address] | | | | | | [phone] | | | | | | | | +--------+ + + + + | 11/20/ | Implant | Cardiology | Daljit Singletary, | Remote Device | | 2019 | Monitor | | [address] [place] | Interrogation | | | | | [place], | (Primary Dx); | | | | | [place] [address] | Presence of | | | | | [phone] | permanent cardiac | | | | [...]
--- OUTSIDE RECORDS SUMMARY | ~2019-10-27 | XMS | Encounter Summary ---
Demographics + + + | Address | [address] | | | [place] [address] | + + + | Home Phone [...] Providers + +------+ + | Care Machine Ironer Name | Role | Phone | [...] | SLEEP DISORDER [address] | [address] | Dx) | | | | [address] [place] | [place] | | | | | [place] [address] | [address] | | | | | [phone] | | | +--------+---------+ + + + [...] pillows obtained from: [facility] [place] pressure is: 13 cm CPAP download shows [...] to go to [facility] in [place] to have them download his memory card. I will readjust his pressure, if necessary. I will call him with the results. He is to work toward wearing his CPAP 100% of the time he is asleep. I will follow up again in 1 month, sooner prn. Fifteen minutes were spent [id number], wi th the majority of time spent [...] W | | | | | | [place], | | | | | | [place] [address] | | | | | | [phone] | | | | | | | | +--------+ + + + + | 11/20/ | Implant | Cardiology | Daljit Singletary, | Remote Device | | 2018 | Monitor | | [facility] | Interrogation | | | | | [place], | (Primary Dx); | | | | | [place] [address] | Presence of | | | | | [phone] | permanent cardiac | | | | [...]
--- OUTSIDE RECORDS SUMMARY | ~2019-10-27 | XMS | Encounter Summary ---
Demographics + + + | Address | [address] | | | [place] [address] | + + + | Home Phone [...] Team Providers + +------+ + | Care Delicatessen Clerk Name | Role | Phone | [...] 2019 | | GASTROENTEROLOGY | [address], [place] | | | | | [address] [place] | [address] [place], [place] | | | | | [address] [place], [place] | [address] | | | | | [address] | | | | | | [phone] | | | +--------+--------+ + + + [...] | | | | | | [place] [address] | | | | | | [phone] | | | | | | | | +--------+ + + + + | 11/20/ | Implant | Cardiology | Daljit Singletary, | Remote Device | | 2018 | Monitor | | [address] | Interrogation | | | | | [place], | (Primary Dx); | | | | | [place] [address] | Presence of | | | | | [phone] | permanent cardiac | | | | [...]
--- OUTSIDE RECORDS SUMMARY | ~2019-10-27 | XMS | Encounter Summary ---
Demographics + + + | Address | [address] | | | [place] [address] | + + + | Home Phone [...] Providers + +------+ + | Care Hammer Heater Name | Role | Phone | + +------+ + PCP | Unavailable | + +------+ + Encounter Details +--------+ + + + + | Date | Type | Department | Care Team | Description | +--------+ + + + + | 10/13/ | Hospital | [facility] | | | | 2007 | Encounter | MED CTR EMERGENCY | | | | | | [place] [address] | | | | | | [place] | | | | | | [address] | | | | | | [phone] | | | +--------+ + + + [...] | | | | | | [place] [address] | | | | | | [phone] | | | | | | | | +--------+ + + + + | 11/20/ | Implant | Cardiology | Daljit Singletary, | Remote Device | | 2018 | Monitor | | [address] [facility] | Interrogation | | | | | [place] [place], | (Primary Dx); | | | | | [place] [address] | Presence of | | | | | [phone] | permanent cardiac | | | | [...]
--- OUTSIDE RECORDS SUMMARY | ~2019-10-27 | XMS | Encounter Summary ---
Demographics + + + | Address | [address] | | | [place] [address] | + + + | Home Phone [...] Providers + +------+ + | Care Proposal Analyst Name | Role | Phone | [...] [address] | | | | | [address] | [place] | | | | | [phone] | [address] | | | | | | [phone] | | | | | | | [...] Notes by Kylah Fraser CMA at 04/11/18 9644 Author: Kylah Fraser CMA Service: (none) Author Type: Membership Sales Manager Filed: 04/19/18 1118 Encounter Date: 04/11/2018 Status: Signed House Painting Instructor: Kylah Fraser CMA (Membership Sales Manager) See telephone encounter 04/19/18. Karen pfeiffer in this encounter Plan of Treatment +--------+ + + + + | Date | Type | Specialty | Care Team | Description | +--------+ + + + + | 11/09/ | Office | Cardiology | [place], | | | 2019 | Visit | | [place] [address] | | | | | | [place], | | | | | | [place] [address] | | | | | | [phone] | | | | | | | | +--------+ + + + + | 11/20/ | Implant | Cardiology | Daljit Singletary, | Remote Device | | 2018 | Monitor | | MD [address] [place] | Interrogation | | | | | [place], | (Primary Dx); | | | | | [place] [address] | Presence of | | | | | [phone] | permanent cardiac | | | | [...]
--- OUTSIDE RECORDS SUMMARY | ~2019-10-27 | XMS | Encounter Summary ---
Demographics + + + | Address | [address] | | | [place] [address] | + + + | Home Phone [...] Providers + +------+ + | Care District Court Justice Name | Role | Phone | + +------+ + PCP | Unavailable | + +------+ + Encounter Details +--------+ + + + + | Date | Type | Department | Care Team | Description | +--------+ + + + + | 02/01/ | [facility] | [facility] | Evan Gandara MD | | | 2008 - | Encounter | MED CTR MED ONC | [address] [facility] | | | | | [address] [place] | [place] | | | 02/06/ | | [place] [address] | [address] | | | 2008 | | [phone] | | | +--------+ + + + [...] [place] | | | | | | [place] [address] | | | | | | [phone] | | | | | | | | +--------+ + + + + | 11/20/ | Implant | Cardiology | Daljit Singletary, | Remote Device | | 2019 | Monitor | | MD [address] | Interrogation | | | | | [address] [place], | (Primary Dx); | | | | | [place] [address] | Presence of | | | | | [phone] | permanent cardiac | | | | [...]
--- OUTSIDE RECORDS SUMMARY | ~2019-10-27 | XMS | Encounter Summary ---
Demographics + + + | Address | [address] | | | [place] [address] | + + + | Home Phone [...] Providers + +------+ + | Care Senior Enterprise Architect Name | Role | Phone | [...] + | 11/26/ | Telephone | [facility] | [place], | Appointment (Needs | | 2017 | | CARDIOLOGY [address] | [place] [address] | rescheduled) | | | | [place], | [place], | | | | | [place] [address] | [place] [address] | | | | | [phone] | [phone] | | | | | | | [...] | | | | | | [place] [address] | | | | | | [phone] | | | | | | | | +--------+ + + + + | 11/20/ | Implant | Cardiology | Daljit Singletary, | Remote Device | | 2018 | Monitor | | [address] [place] | Interrogation | | | | | [place], | (Primary Dx); | | | | | [place] [address] | Presence of | | | | | [phone] | permanent cardiac | | | | [...]
--- OUTSIDE RECORDS SUMMARY | ~2019-10-27 | XMS | Encounter Summary ---
Demographics + + + | Address | [address] | | | [place] [address] | + + + | Home Phone [...] Providers + +------+ + | Care Associate Software Engineer Name | Role | Phone | + +------+ + PCP | Unavailable | + +------+ + Encounter Details +--------+ + + + + | Date | Type | Department | Care Team | Description | +--------+ + + + + | 05/13/ | [facility] | [facility] | Dom Graham, | | | 2010 | Encounter | MED CTR EMERGENCY | [address] | | | | | CENTER [address] | [place] | | | | | [place] | [address] | | | | | [address] | | | | | | [phone] | | | +--------+ + + + [...] W | | | | | | [place], | | | | | | [place] [address] | | | | | | [phone] | | | | | | | | +--------+ + + + + | 11/20/ | Implant | Cardiology | Daljit Singletary, | Remote Device | | 2019 | Monitor | | [address] [facility] | Interrogation | | | | | [place], | (Primary Dx); | | | | | [place] [address] | Presence of | | | | | [phone] | permanent cardiac | | | | [...] | | | | | the [place] | | | | | | Access [...] ST. | [address] | [place], [place] | [phone] | | [facility] | | [address] | | | - LABORATORY | | | | + + + + + | [address] | [address] | [place], [place] | | | [facility] | | [address] | | | - LABORATORY | | [...] + | [facility] | [address] | [place] | [phone] | | [facility] | | [address] | | | - LABORATORY | | | | + + + + + | [facility] | [address] | [place], [place] | | | [facility] | | [address] | | | - LABORATORY | | [...] + | [facility] | [address] | [place], [place] | [phone] | | [facility] | | [address] | | | - LABORATORY | | | | + + + + + | [facility] | [address] | [place], [place] | | | [facility] | | [address] | | | - LABORATORY | | [...] + | Performing | Address | City/State[facility] | Phone Number | | Organization | | | | + + + + + | [facility] | [address] | [place], [place] | [phone] | | [facility] | | [address] | | | - LABORATORY | | | | + + + + + | [facility] | [address] | [place], [place] | | | [facility] | | [address] | | | - LABORATORY | | | | + + + + + XR Chest AP Portable (05/13/2011 3:01 PM PDT) + + | Specimen | + + | | + + + + + | Narrative | Performed At | + + + | [facility] Diagnostic [facility] Department | [facility] | | [address] [facility] | [facility] | | PORTABLE CHEST CLINICAL | [...] Transcribed Date/Time: | | | 05/13/2011 17:06 Boring Inspector: <Electronically Signed | | | by Jama Solis MD> 05/13/112038 | | + + + + + | Procedure Note | + + | Kevin, Rad Conversion - 12/29/2013 3:[address] [facility] | | Diagnostic Imaging Department [address] [place] [address] | | PORTABLE CHEST CLINICAL HISTORY: TACHYCARDIA. [...] 16:57 | |Transcribed Date/Time: 05/13/2011 17:06 | |Boring Inspector: | |<Electronically Signed by Jama Solis MD> [...]
--- OUTSIDE RECORDS SUMMARY | ~2019-10-27 | XMS | Encounter Summary ---
Demographics + + + | Address | [address] | | | [place] [address] | + + + | Home Phone [...] Providers + +------+ + | Care Chicken Catcher Name | Role | Phone | + [...] | 2018 | Changes | GASTROENTEROLOGY | Economic Analysis Director | | | | | [address] [facility] | | | | | | [address] [place] | | | | | | [address] | | | | | | [phone] | | | +--------+ + + + [...] | | | | | | [place] [address] | | | | | | [phone] | | | | | | | | +--------+ + + + + | 11/20/ | Implant | Cardiology | Daljit Singletary, | Remote Device | | 2018 | Monitor | | [address] | Interrogation | | | | | [place], | (Primary Dx); | | | | | [place] [address] | Presence of | | | | | [phone] | permanent cardiac | | | | [...]
--- OUTSIDE RECORDS SUMMARY | ~2019-10-27 | XMS | Encounter Summary ---
Demographics + + + | Address | [address] | | | [place] [address] | + + + | Home Phone [...] Providers + +------+ + | Care Pie Icer Machine Name | Role | Phone | [...] | | CARDIOLOGY [address] | Janeen, TICKER MAINTAINER [address] | Clearance) | | | | [place], | [place], | | | | | [place] [address] | [place] [address] | | | | | [phone] | [phone] | | | | | | | [...] | | | | | | [place] [address] | | | | | | [phone] | | | | | | | | +--------+ + + + + | 11/20/ | Implant | Cardiology | Daljit Singletary, | Remote Device | | 2018 | Monitor | | [address] [place] | Interrogation | | | | | [place], | (Primary Dx); | | | | | [place] [address] | Presence of | | | | | [phone] | permanent cardiac | | | | [...]
--- OUTSIDE RECORDS SUMMARY | ~2019-10-27 | XMS | Encounter Summary ---
Demographics + + + | Address | [address] | | | [place] [address] | + + + | Home Phone [...] Providers + +------+ + | Care Court Attendant Name | Role | Phone [...] + | 01/25/ | Telephone | [facility] | Daljit Singletary, | Appointment | | 2017 | | CARDIOLOGY [address] | MD [address] | | | | | [place], | [place], | | | | | [place] [address] | [place] [address] | | | | | [phone] | [phone] | | | | | | | [...] | | | | | | [place], | | | | | | [place] [address] | | | | | | [phone] | | | | | | | | +--------+ + + + + | 11/20/ | Implant | Cardiology | Daljit Singletary, | Remote Device | | 2018 | Monitor | | MD [address] | Interrogation | | | | | [place], | (Primary Dx); | | | | | [place] [address] | Presence of | | | | | [phone] | permanent cardiac | | | | [...]
--- OUTSIDE RECORDS SUMMARY | ~2019-10-27 | XMS | Encounter Summary ---
Demographics + + + | Address | [address] | | | [place] [address] | + + + | Home Phone [...] Team Providers + +------+ + | Care Submarine Operator Name | Role | Phone | [...] [address] | | | | | | [place], [place] | (Fax) | | | | | [address] | | | | | | [phone] | | | +--------+ + + + [...] | | | | | | [place] [address] | | | | | | [phone] | | | | | | | | +--------+ + + + + | 11/20/ | Implant | Cardiology | Daljit Singletary, | Remote Device | | 2018 | Monitor | | [address] [facility] | Interrogation | | | | | [place], | (Primary Dx); | | | | | [place] [address] | Presence of | | | | | [phone] | permanent cardiac | | | | [...]
--- OUTSIDE RECORDS SUMMARY | ~2019-10-27 | XMS | Encounter Summary ---
Demographics + + + | Address | [address] | | | [place] [address] | + + + | Home Phone [...] + +------+ + | Care Registered Nurse Cardiac Telemetry Name | Role | Phone | + [...] | Palpitations | [address] | | | | | Procedures | [address] | [address] [place] | | | | | ECHO | [place], | [place], [place] | | | | | Complete | [place] [address] | [address] | | | | | | Phone: | Phone: | | | | | | [phone] | [phone] | | | | | | Fax: | Fax: | | | | | | [phone] | [phone] | +--------+--------+ + + + + Reason [...] + + | 12/21/ | Office | [facility] | Daljit Singletary, | Palpitations | | 2012 | Visit | CARDIOLOGY [address] | [address] | (Primary Dx); PVC | | | | [place], | [place], | (premature | | | | [place] [address] | [place] [address] | ventricular | | | | [phone] | [phone] | contraction) | | | | | [...] present himself to the emergency department at [facility] in [place], [place]. Today, patient is apprehensive of the [...] tablet Take 1,000 mg by mouth Daily. [place]-3 Fatty Acids (SALMON OIL-1000 PO) [...] tablet Take 1,000 mg by mouth Daily. [place]-3 Fatty Acids (SALMON OIL-1000 PO) [...] Gay Date: December 21, 2012 : 1960 Scout Executive: PARISA Velazquez Device Lead Front End Developer: [employer] Sense (mV) Impedance (?) Capture (V) Capture (ms) A Lead 4-5.6 423 1.5 0.09 RV Lead >31.36 539 2.0 0.09 LV Lead Battery Impedance (?): 301 Battery Voltage (V): 2.8 [place] Interval (ms): 140 AR Interval (ms): 210 VA Conduction: Mode Switch Events: N/A % of time: -MUSIC PUBLICIST: 0.6 AP-MUSIC PUBLICIST: 1.3 -VS: 23.9 AP-VS: 74.2 MUSIC PUBLICIST: Magnetic Rate: 85 LINDA: 65 LEAH: Current [...] himself to the emerge ncy department at [facility] in [place], [place]. EKG showed normal sinus rhythm with [...] I will d iscuss this option with logistics specialist in [place]. 7. Followup in 2-4 weeks. Portions of this report were transcribed using voice recognition software. Every effort wa s made to ensure accuracy; however, inadvertent computerized vehicle maintenance technician errors may be pre sent. documented [...] | | | | | | [place] [address] | | | | | | [phone] | | | | | | | | +--------+ + + + + | 11/20/ | Implant | Cardiology | Daljit Singletary, | Remote Device | | 2019 | Monitor | | [address] [facility] | Interrogation | | | | | [place], | (Primary Dx); | | | | | [place] [address] | Presence of | | | | | [phone] | permanent cardiac | | | | [...] | [facility] Diagnostic Imaging | ARIEL | | Department [address] | [facility] | | [ rep ct street[address]] [ rep ct [facility] | | st zip] Signed | - IMAGING | | | | | Patient Name: MOE GAY | | | Physician: MIGUELINA : 1960 Age: 52 Sex: M Unit | | | #: [id number] Exam Date: 12/30/12 Location: | | | IMG Report #: [id number] Page: | | | %(RAD)RES..mtdd.print.filter("pg") of %(RAD) | | | RES..mtdd.print.filter("tpg") | | | | | | Accession Number: [id number] | | | E C H O C A R D I O G R A P H Y R E P O R T | | | HEIGHT: 76" WEIGHT: 270# | | | ETL LEAD: JAMEEL REFERRING DR: TIMMY READING DR: | [...] | | | Transcribed Date/Time: 12/30/2012 16:34 Music Video Director: | | | <<Signature on File>> | | | Daljit | | | MD Gemini [facility] FASE01/02/13 0955 <Electronically signed by | | | Daljit Singletary MD, [facility], FACP, FASE, FASNC> Rashadong | | | MD CLEOPATRA Singletary FASE 12/30/12 1608 Music Video Director: Jessica | | | Rzuiglyxmexsp35/08/13 1634 MD ROSEMARY Newby | | | FASE | | + + + + + + + + | Performing | Address | City/[facility] | Phone Number | | Organization | | | | + + + + + | [facility] [facility] | [address] | [place] | [phone] | | [facility] | | [address] | | | - IMAGING | | | | + + + + + documented in this encounter Visit Diagnoses + + | Diagnosis | + + | Palpitations - Primary | + + | PVC (premature ventricular contraction) Other premature beats | + + documented in this encounter
--- OUTSIDE RECORDS SUMMARY | ~2019-10-27 | XMS | Encounter Summary ---
Demographics + + + | Address | [address] | | | [place] [address] | + + + | Home Phone [...] Providers + +------+ + | Care Clerk Guide Name | Role | Phone | [...] + | 02/16/ | Telephone | [facility] | Silvia, | Other (concerned | | 2012 | | CARDIOLOGY [address] | PARISA [place] [address] | about palpitations) | | | | [place], | [place], | | | | | [place] [address] | [place] [address] | | | | | [phone] | | | | | | | [...] W | | | | | | [place], | | | | | | [place] [address] | | | | | | [phone] | | | | | | | | +--------+ + + + + | 11/20/ | Implant | Cardiology | Daljit Singletary, | Remote Device | | 2018 | Monitor | | [facility] | Interrogation | | | | | [place], | (Primary Dx); | | | | | [place] [address] | Presence of | | | | | [phone] | permanent cardiac | | | | [...]
--- OUTSIDE RECORDS SUMMARY | ~2019-10-27 | XMS | Encounter Summary ---
Demographics + + + | Address | [address] | | | [place] [address] | + + + | Home Phone [...] Providers + +------+ + | Care Card Setter Name | Role | Phone | [address] | | | | | | [place], [place] | (Fax) | | | | | [address] | | | | | | [phone] | | | +--------+ + + + [...] | | | | | | [place] [address] | | | | | | [phone] | | | | | | | | +--------+ + + + + | 11/20/ | Implant | Cardiology | Daljit Singletary, | Remote Device | | 2018 | Monitor | | [facility] | Interrogation | | | | | [place], | (Primary Dx); | | | | | [place] [address] | Presence of | | | | | [phone] | permanent cardiac | | | | [...]
--- OUTSIDE RECORDS SUMMARY | ~2019-10-27 | XMS | Encounter Summary ---
Demographics + + + | Address | [address] | | | [place] [address] | + + + | Home Phone [...] Team Providers + +------+ + | Care Docketing Specialist Name | Role | Phone | [...] | | CARDIOLOGY [address] | Janeen, FORECAST ANALYST [address] | reading) | | | | [place], | [place], | | | | | [place] [address] | [place] [address] | | | | | [phone] | | | | | | | [...] | | | | | | [place] [address] | | | | | | [phone] | | | | | | | | +--------+ + + + + | 11/20/ | Implant | Cardiology | Daljit Singletary, | Remote Device | | 2018 | Monitor | | MD [address] | Interrogation | | | | | [place], | (Primary Dx); | | | | | [place] [address] | Presence of | | | | | [phone] | permanent cardiac | | | | [...]
--- OUTSIDE RECORDS SUMMARY | ~2019-10-27 | XMS | Encounter Summary ---
Demographics + + + | Address | [address] | | | [place] [address] | + + + | Home Phone [...] Team Providers + +------+ + | Care Gunstock Repairer Name | Role | Phone | [...] 2012 | | CARDIOLOGY [address] | DESK DIRECTOR [address] | faxed) | | | | [place], | [place] [facility] [place] | | | | | [place] [address] | [address] | | | | | [phone] | | | +--------+ + + + [...] W | | | | | | [place], | | | | | | [place] [address] | | | | | | [phone] | | | | | | | | +--------+ + + + + | 11/20/ | Implant | Cardiology | Daljit Singletary, | Remote Device | | 2018 | Monitor | | [address] [facility] | Interrogation | | | | | [place], | (Primary Dx); | | | | | [place] [address] | Presence of | | | | | [phone] | permanent cardiac | | | | [...]
--- OUTSIDE RECORDS SUMMARY | ~2019-10-27 | XMS | Encounter Summary ---
Demographics + + + | Address | [address] | | | [place] [address] | + + + | Home Phone [...] Team Providers + +------+ + | Care Corrugator Supervisor Name | Role | Phone | [...] [address] | | | | | | [place], [place] | (Fax) | | | | | [address] | | | | | | [phone] | | | +--------+ + + + [...] | | | | | | [place] [address] | | | | | | [phone] | | | | | | | | +--------+ + + + + | 11/20/ | Implant | Cardiology | Daljit Singletary, | Remote Device | | 2018 | Monitor | | [facility] | Interrogation | | | | | [place], | (Primary Dx); | | | | | [place] [address] | Presence of | | | | | [phone] | permanent cardiac | | | | [...]
--- OUTSIDE RECORDS SUMMARY | ~2019-10-27 | XMS | Encounter Summary ---
Demographics + + + | Address | [address] | | | [place] [address] | + + + | Home Phone [...] + + | 06/03/ | Hospital | [facility] | Conversion | Back pain, | | 2014 | Encounter | CONVERSION DEP [address] | Transaction, | unspecified location | | | | [address] | Provider Unknown | | | | | [place], [place] | [phone] | | | | | [address] | (Fax) | | | | | [phone] | | | +--------+ + + + [...] + + + +---------+ + + | [place]-3 Fatty | CAPS, one capsule by | [...] | | | | | | | #[id number], exp 07/2016 | | | | | [...] | | | | | | [place] [address] | | | | | | [phone] | | | | | | | | +--------+ + + + + | 11/20/ | Implant | Cardiology | Daljit Singletary, | Remote Device | | 2019 | Monitor | | MD [address] | Interrogation | | | | | [place], | (Primary Dx); | | | | | [place] [address] | Presence of | | | | | [phone] | permanent cardiac | | | | [...] Note | + + | Kevin Kalpesh Imani - 07/07/2019 5:05 AM PDT This is a non-reportable procedure | | without a radiologist report and isused for image storage only | + + documented in this encounter Visit Diagnoses + + | Diagnosis | + + | Back pain, unspecified location | + + documented in this encounter"
--- OUTSIDE RECORDS SUMMARY | ~2019-10-27 | XMS | Encounter Summary ---
Demographics + + + | Address | [address] | | | [place] [address] | + + + | Home Phone [...] Providers + +------+ + | Care Casino Slot Supervisor Name | Role | Phone | + +------+ + PCP | Unavailable | + +------+ + Encounter Details +--------+ + + + + | Date | Type | Department | Care Team | Description | +--------+ + + + + | 11/05/ | [facility] | [facility] | Naresh Mckeon | | | 2009 | Encounter | MED CTR SLEEP | MD Chaya [address] | | | | | CENTER [address] | [place] | | | | | [place] | [place] [address] | | | | | [address] | [phone] | | | | | [phone] | | | +--------+ + + + [...] | | | | | | [place] [address] | | | | | | [phone] | | | | | | | | +--------+ + + + + | 11/20/ | Implant | Cardiology | Daljit Singletary, | Remote Device | | 2019 | Monitor | | MD [address] | Interrogation | | | | | [place], | (Primary Dx); | | | | | [place] [address] | Presence of | | | | | [phone] | permanent cardiac | | | | [...]
--- OUTSIDE RECORDS SUMMARY | ~2019-10-27 | XMS | Encounter Summary ---
Demographics + + + | Address | [address] | | | [place] [address] | + + + | Home Phone [...] + +------+ + | Care Entry Level Installation Technician Name | Role | Phone | [...] 2012 | | CARDIOLOGY [address] | [employer] [address] | | | | | [place], | [place], [place] | | | | | [place] [address] | [address] | | | | | [phone] | | | +--------+ + + + [...] | | | | | | [place] [address] | | | | | | [phone] | | | | | | | | +--------+ + + + + | 11/20/ | Implant | Cardiology | Daljit Singletary, | Remote Device | | 2018 | Monitor | | MD [address] | Interrogation | | | | | [place], | (Primary Dx); | | | | | [place] [address] | Presence of | | | | | [phone] | permanent cardiac | | | | [...]
--- OUTSIDE RECORDS SUMMARY | ~2019-10-27 | XMS | Encounter Summary ---
Demographics + + + | Address | [address] | | | [place] [address] | + + + | Home Phone [...] Providers + +------+ + | Care Septic Technician Name | Role | Phone | [...] | 09/30/ | Telephone | [facility] [place] | Daljit Singletary, | Other (Danieljoao | | 2018 | | [place] [address] | [address] | remote) | | | | [place], | [place], | | | | | [place] [address] | [place] [address] | | | | | [phone] | | | | | | | [...] W | | | | | | [place], | | | | | | [place] [address] | | | | | | [phone] | | | | | | | | +--------+ + + + + | 11/20/ | Implant | Cardiology | Daljit Singletary, | Remote Device | | 2018 | Monitor | | MD [address] [place] | Interrogation | | | | | [place], | (Primary Dx); | | | | | [place] [address] | Presence of | | | | | [phone] | permanent cardiac | | | | [...]
--- OUTSIDE RECORDS SUMMARY | ~2019-10-27 | XMS | Encounter Summary ---
Demographics + + + | Address | [address] | | | [place] [address] | + + + | Home Phone [...] Providers + +------+ + | Care Technical Service Representative Name | Role | Phone [...] [address] | | | | | | [place], [place] | (Fax) | | | | | [address] | | | | | | [phone] | | | +--------+ + + + [...] | | | | | | [place] [address] | | | | | | [phone] | | | | | | | | +--------+ + + + + | 11/20/ | Implant | Cardiology | Daljit Singletary, | Remote Device | | 2018 | Monitor | | [address] [facility] | Interrogation | | | | | [place], | (Primary Dx); | | | | | [place] [address] | Presence of | | | | | [phone] | permanent cardiac | | | | [...]
--- OUTSIDE RECORDS SUMMARY | ~2019-10-27 | XMS | Encounter Summary ---
Demographics + + + | Address | [address] | | | [place] [address] | + + + | Home Phone [...] Team Providers + +------+ + | Care Roof Truss Builder Name | Role | Phone | + +------+ + PCP | Unavailable | + +------+ + Encounter Details +--------+ + + + + | Date | Type | Department | Care Team | Description | +--------+ + + + + | 08/17/ | [facility] | [facility] | Evan Gandara MD | | | 2005 | Encounter | MED CTR LABORATORY | [address] [facility] | | | | | [address] | [place] | | | | | [place] | [address] | | | | | [address] | | | | | | [phone] | | | +--------+ + + + [...] | | | | | | [place] [address] | | | | | | [phone] | | | | | | | | +--------+ + + + + | 11/20/ | Implant | Cardiology | Daljit Singletary, | Remote Device | | 2019 | Monitor | | MD [address] | Interrogation | | | | | [place], | (Primary Dx); | | | | | [place] [address] | Presence of | | | | | [phone] | permanent cardiac | | | | [...]
--- OUTSIDE RECORDS SUMMARY | ~2019-10-27 | XMS | Encounter Summary ---
Demographics + + + | Address | [address] | | | [place] [address] | + + + | Home Phone [...] Team Providers + +------+ + | Care Skein Yarn Dyer Helper Name | Role | Phone | [...] + + | 09/05/ | Office | [facility] | Geri Angel, | SINUS BRADYCARDIA | | 2012 | Visit | CARDIOLOGY [address] | CHEMICAL PLANT MANAGER [address] [place] | (Primary Dx); | | | | [place], | [place], [place] | Symptomatic PVCs; | | | | [place] [address] | [address] | Hypertension; | | | | [phone] | | Hyperlipidemia | +--------+---------+ + + [...] and/or ref er you to electrophysiology in [place]. 3. Return in 3 months, or sooner [...] he did not followup with electrophysiology in [place], so he has remained on diltiaze m [...] Family Status Relation Status Age Mother 62 [place] Father Alive Unknown health Brother Alive Sister [...] by mouth Ken y. 30 tablet 6 [place]-3 Fatty Acids (SALMON OIL-1000 PO) Active CAPS, [...] Sanchez Date: September 05, 2013 : 1960 Manager Delivery: PARISA Velazquez Device Hotel Room Attendant: [employer] Sense (mV) Impedance (?) Capture (V) Capture (ms) A Lead 4-5.6 417 1.5 0.12 RV Lead >31.36 533 2.0 0.09 LV Lead Battery Impedance (?): 452 Battery Voltage (V): 2.79 [place] Interval (ms): 162 AR Interval (ms): 245 VA Conduction: Mode Switch Events: 1 % of time: <0.1 -METALS SALES REPRESENTATIVE: <0.1% AP-METALS SALES REPRESENTATIVE: 0.1% -VS: 22.7% AP-VS: 77.1% METALS SALES REPRESENTATIVE: Magnetic Rate: 85 LINDA: 65 LEAH: [...] He is upgraded to class I of 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 There are no [...] he would like to see electrophysiology in [place] rather than [place] as he paulino s family there, if [...] made to ensure accuracy; however, inadvertent computerized field crops harvest machine operator errors may be pre sent. Electronically [...] | | | | | | [place] [address] | | | | | | [phone] | | | | | | | | +--------+ + + + + | 11/20/ | Implant | Cardiology | Daljit Singletary, | Remote Device | | 2019 | Monitor | | MD [address] [facility] | Interrogation | | | | | [place], | (Primary Dx); | | | | | [place] [address] | Presence of | | | | | [phone] | permanent cardiac | | | | [...]
--- OUTSIDE RECORDS SUMMARY | ~2019-10-27 | XMS | Encounter Summary ---
Demographics + + + | Address | [address] | | | [place] [address] | + + + | Home Phone [...] Providers + +------+ + | Care Family Lawyer Name | Role | Phone | + +------+ + | Kirk French MD | PCP | | + +------+ + Encounter Details +--------+ + + + + | Date | Type | Department | Care Team | Description | +--------+ + + + + | 12/24/ | Orders Only | [facility] | Conversion | | | 2018 | | [facility] | Transaction, | | | | | PRIMARY CARE [address] | Provider Unknown | | | | | [address] | [phone] | | | | | [place] | | | | | | [address] | | | | | | [phone] | | | +--------+ + + + [...] W | | | | | | [place], | | | | | | [place] [address] | | | | | | [phone] | | | | | | | | +--------+ + + + + | 11/20/ | Implant | Cardiology | Daljit Singletary, | Remote Device | | 2018 | Monitor | | [address] [facility] [place], [place] | Interrogation | | | | | [place], | (Primary Dx); | | | | | [place] [address] | Presence of | | | | | [phone] | permanent cardiac | | | | [...]
--- OUTSIDE RECORDS SUMMARY | ~2019-10-27 | XMS | Encounter Summary ---
Demographics + + + | Address | [address] | | | [place] [address] | + + + | Home Phone [...] | + + +---------+ + | Maria Isaebl Sanchez | ECON | Unknown | | + + +---------+ + Care Team Providers + +------+ + | Care As400 Programmer Analyst Name | Role | Phone [...] Provider Unknown | | | | | [place], [place] | [phone] | | | | | [address] | | | | | | [phone] | | | +--------+ + + + [...] + + + +---------+ + + | [employer]-3 Fatty | CAPS, one capsule by | [...] | | | | | | | #[id number], exp 07/2016 | | | | | [...] | | | | | | [place] [address] | | | | | | [phone] | | | | | | | | +--------+ + + + + | 11/20/ | Implant | Cardiology | Daljit Singletary, | Remote Device | | 2018 | Monitor | | MD [address] | Interrogation | | | | | [place], | (Primary Dx); | | | | | [place] [address] | Presence of | | | | | [phone] | permanent cardiac | | | | [...]
--- OUTSIDE RECORDS SUMMARY | ~2019-10-27 | XMS | Encounter Summary ---
Demographics + + + | Address | [address] | | | [place] [address] | + + + | Home Phone [...] [place] | | | | | | [address] | | | | | | [phone] | | | +--------+ + + + [...] | | | | | [place], | | | | | | [place] [address] | | | | | | [phone] | | | | | | | | +--------+ + + + + | 11/20/ | Implant | Cardiology | Daljit Singletary, | Remote Device | | 2018 | Monitor | | [facility] | Interrogation | | | | | [place], | (Primary Dx); | | | | | [place] [address] | Presence of | | | | | [phone] | permanent cardiac | | | | [...]
--- OUTSIDE RECORDS SUMMARY | ~2019-10-27 | XMS | Encounter Summary ---
Demographics + + + | Address | [address] | | | [place] [address] | + + + | Home Phone [...] | | | pain | [address] | [address] | | | | | Procedures | St [place] | [place], | | | | | [place] Nuclear | [place] | [place] | | | | | Stress Test | [address] | [address] | | | | | (Vasodilator | Phone: | Phone: | | | | | ) CHG | [phone] | [phone] | | | | | MYOCARDIAL | Fax: | Fax: | | | | | SPECT | [phone] | [phone] | | | | | MULTIPLE | | | | | | | STUDIES | | | +--------+--------+ + + + + Encounter Details +--------+ + + + + | Date | Type | Department | Care Team | Description | +--------+ + + + + | 12/06/ | Hospital | [facility] | Geri Angel, | Other chest pain | | 2013 | Encounter | MED CTR XRAY [address] | AIRCRAFT INSPECTOR [address] | | | | | [place] | [place] | | | | | [place] [address] | [address] | | | | | [phone] | | | +--------+ + + + [...] + + + +---------+ + + | [place]-3 Fatty | CAPS, one capsule by | [...] W | | | | | | [place], | | | | | | [place] [address] | | | | | | [phone] | | | | | | | | +--------+ + + + + | 11/20/ | Implant | Cardiology | Daljit Singletary, | Remote Device | | 2018 | Monitor | | [address] | Interrogation | | | | | [place], | (Primary Dx); | | | | | [place] [address] | Presence of | | | | | [phone] | permanent cardiac | | | | [...] | [facility] Diagnostic Imaging | [place] | | Department [address] [facility] | [place] | | [ rep [address]] [ rep [facility] | | st zip] Signed | - IMAGING | | | | | Patient Name: MOE GAY | | | Physician: JACKLYN : 1960 Age: 53 Sex: M Unit | | | #: [id number] Exam Date: 12/06/13 Location: | | | [facility] [place] Report #: [id number] Page: | | | %(RAD)RES..mtdd.print.filter("pg") of %(RAD) | | | RES..mtdd.print.filter("tpg") | | | | | | Accession Number: [id number] | | | PERSANTINE SESTAMIBI STRESS TEST, [...] Transcribed Date/Time: 12/07/2013 08:18 | | | Coat Agent: <<Signature on File>> | | | | | | Daljit Singletary MD [facility] FASE12/07/13 1321 <Electronically signed | | | by Daljit Singletary MD, FACC, FACP, FASE, FASNC> Daljit | | | MD CLEOPATRA Singletary 12/07/13 0701 Coat Agent: Jessica | | | [id number]/16/14 0818 PARISA Garcia | | + + + + + + + + | Performing | Address | City/[facility] | Phone Number | | Organization | | | | + + + + + | [address] | [address] | [place] | [phone] | | [facility] | | [address] | | | - IMAGING | | | | + + + + + documented in this encounter Visit Diagnoses + + | Diagnosis | + + | Other chest pain | + + documented in this encounter
--- OUTSIDE RECORDS SUMMARY | ~2019-10-27 | XMS | Clinical Summary ---
Demographics + + + | Address | [address] [place] [address] | | | [place] [address] | + + + | Home Phone [...] [place] | | | | | [address] | | + + + + + Care Team Providers + +------+ + | Care Icu Specialist Name | Role | Phone | + +------+ + | Darion Holden DO | PCP | | + +------+ + Source Comments IVETTE is fully live on both EpicCare Ambulatory and EpicCare InPatient.[facility] Allergies + + + + + + [...] Refill Request | | 2019 | | | MD | | +--------+ + + + + | 10/23/ | Telephone | Gastroenterology | Bridgette Rios, | | | 2018 | | | MD | | +--------+ + + + + | 10/18/ | Telephone | Gastroenterology | Bridgette Rios, | Other (stool tests | | 2018 | | | | normal, recommend | | | | | | hyoscyamine) | +--------+ + + + + | 10/17/ | Abstract | Gastroenterology | Bridgette Rios, | Medical Records | | 2018 | | | | Review | +--------+ + + + + | 10/11/ | Telephone | Gastroenterology | Bridgette Rios, | Other (stool lab | | 2018 | | | | results) | +--------+ + + + [...] | | | | | | | [address] | | + +--------+ +--------+ + +--------+ | [employer] | AARP | [phone] | 11/22/19 | [phone] | [address] | Indemn | | RETIRED PEOPLE | | | 10-Pre | 9 | [phone] | ity | | | | | sent | | [place] | | | | | | | | [address] | | + +--------+ +--------+ + +--------+ + +--------+ +--------+ + + | Guarantor Name | Accoun | Relation to | Date | Phone | Billing Address | | | t Type | Patient | of | | | | | | | | | | + +--------+ +--------+ + + | Moe Sanchez | Person | Self | [birth year] | [address] | | | cristo/Per | | 1960 | [phone] | [place] | | | roxanne | | | 8 (Home) | [address] | + +--------+ +--------+ + + Advance Directives + + + + + | Type | Date Recorded | Patient | Explanation | | | | Bulb Planter | | + + + + + | Advance | | | | | Directives and | | | | | Living Will | | | | + + + + + | Power of | | | | | Lens Matcher | | | | + + + + +
--- OUTSIDE RECORDS SUMMARY | ~2019-10-27 | XMS | Encounter Summary ---
Demographics + + + | Address | [address] | | | [place] [address] | + + + | Home Phone [...] Provider Unknown | | | | | [place], [place] | [phone] | | | | | [address] | | | | | | [phone] | | | +--------+ + + + [...] | | | | | | | #[id number], exp 07/2016 | | | | | [...] | | | | | | [place] [address] | | | | | | [phone] | | | | | | | | +--------+ + + + + | 11/20/ | Implant | Cardiology | Daljit Singletary, | Remote Device | | 2018 | Monitor | | MD [address] | Interrogation | | | | | [facility], | (Primary Dx); | | | | | [place] [address] | Presence of | | | | | [phone] | permanent cardiac | | | | [...]
--- OUTSIDE RECORDS SUMMARY | ~2019-10-27 | XMS | Encounter Summary ---
Demographics + + + | Address | [address] | | | [place] [address] | + + + | Home Phone [...] Providers + +------+ + | Care It Teacher Name | Role | Phone | + +------+ + | Saarh French MD | PCP | | + [...] | | | | Sinoatrial | Jose, ELECTRIC ENGINE MECHANIC | [address] | | | | | node | [address] | [place], | | | | | dysfunction | [place] | [place] | | | | | (HCC) | [place], [place] | [address] | | | | | Coronary | [address] | Phone: | | | | | artery | Phone: | [phone] | | | | | disease | [phone] | Fax: | | | | | involving | Fax: | [phone] | | | | | [place] | [phone] | | | | | | coronary | | | | | | | artery of | | | | | | | [place] heart | | | | | | [...] | | | | | | Complete [place] | | | | | | | ECHO HEART | | | | | | | XTHORACIC,[place] | | | | | | | MPLETE W | | | | | | | DOPPLER [place] | | | | | | | [...] | | | | Sinoatrial | Jose, ELECTRIC ENGINE MECHANIC | [address] | | | | | node | [address] | [place], | | | | | dysfunction | [place] | [place] | | | | | ([facility]AC, [facility]) | [place], [place] | [address] | | | | | Coronary | [address] | Phone: | | | | | artery | Phone: | [phone] | | | | | disease | [phone] | Fax: | | | | | involving | Fax: | [phone] | | | | | [place] | [phone] | | | | | | coronary | | | | | | | artery of | | | | | | | [place] heart | | | | | | [...] | | | | | | Complete [place] | | | | | | | ECHO HEART | | | | | | | XTHORACIC,[place] | | | | | | | MPLETE W | | | | | | | [place]OPPL[place] | | | | | | | [...] + + + + | 06/16/ | [facility] | [facility] | Jose Angel, | Sinoatrial node | | 2016 | Encounter | MED CTR ECHO [address] | ELECTRIC ENGINE MECHANIC [address] | dysfunction (HCC) | | | | [address] [place] | [place], [place] | with symptomatic | | | | [place] [address] | [address] | bradycardia; | | | | [phone] | | Coronary artery | | | | | Juvenal Blake, | disease involving | | | | | Technologist | [place] coronary | | | | | | artery of [place] | | | | | | heart [...] W | | | | | | [address] [place], | | | | | | [place] [address] | | | | | | [phone] | | | | | | | | +--------+ + + + + | 11/20/ | Implant | Cardiology | Sydni Singletary, | Remote Device | | 2018 | Monitor | | [address] [facility] [place], [place] | Interrogation | | | | | St[place], | (Primary Dx); | | | | | [place] [address] | Presence of | | | | | [phone] | permanent cardiac | | | | [...] involving | | | | | | [place] coronary | | | | | | artery of [place] | | | | | | heart [...] Patient | [facility] | | [id number] Date of Study 06/16/2016 Number | - IMAGING | | Visit Number [id number] | | | Referring Physician JOSE ARMANDO JOSE Number Date of 1960 | | | Director Of Counterintelligence LUIS FERNANDO DUARTE Age | | | 56 year(s) Interpreting | | | GUJRIT TROY | | | Blocker And Polisher Gold Wheel SYDNI SINGLETARY, | | | Gender | | | Male Nurse Procedure Type of Study TTE | | | procedure: ECHO Complete. Procedure dateDate: 06/16/2016Start: 10:55 | | | AM Technical Quality: Adequate visualizationStudy Location: Echo | | | LabIndications: CAD [place] CORONARY ARTERY 414.01/ I25.10 and | | [...] BARRY Room Number SARAH | | Patient [id number] Date of Study 06/16/2016 Number Visit Number | | [id number] Referring Physician JOSE ARMANDO GARCIA Number | | Date of 1960 Director Of Counterintelligence LUIS FERNANDO DUARTE Age | | 56 year(s) Interpreting GURJIT TROY | | Blocker And Polisher Gold Wheel SYDNI SINGLETARY | | Gender Male NurseProcedureType of Study TTE | | procedure: ECHO Complete.Procedure dateDate: 06/16/2016Start: 10:55 AMTechnical Quality: | | Adequate visualizationStudy Location: Echo LabIndications: CAD [place] CORONARY ARTERY | | 414.01/ I25.10 and [...] [address] | [place] | [phone] | | [facility] | | [address] | | | - IMAGING | | [...] disease involving [place] coronary artery of [place] heart without | | angina pectoris | + + | Ascending thoracic aortic aneurysm (HCC) Thoracic aneurysm without mention of rupture | + + documented in this encounter"
--- OUTSIDE RECORDS SUMMARY | ~2019-10-27 | XMS | Encounter Summary ---
Demographics + + + | Address | [address] | | | [place] [address] | + + + | Home Phone [...] Providers + +------+ + | Care Utility Worker Production Name | Role | Phone | + [...] | initial encounter; | | | | [place], [place] | | Elevated blood | | | | [address] | | pressure reading; | | | | [phone] | | Numbness and | | | [...] + + + +---------+ + + | [place]-3 Fatty | CAPS, one capsule by [...] | | | | | | [place] [address] | | | | | | [phone] | | | | | | | | +--------+ + + + + | 11/20/ | Implant | Cardiology | Gemini Shaistakenneth, | Remote Device | | 2019 | Monitor | | MD [address] [facility] | Interrogation | | | | | [place], | (Primary Dx); | | | | | [place] [address] | Presence of | | | | | [phone] | permanent cardiac | | | | [...]
--- OUTSIDE RECORDS SUMMARY | ~2019-10-27 | XMS | Encounter Summary ---
Demographics + + + | Address | [address] | | | [place] [address] | + + + | Home Phone [...] + +------+ + | Care Room Service Clerk Name | Role | Phone | [...] CARDIOLOGY [address] | MD [address] | Dx); SINUS | | | | [employer], | [employer], | [place] | | | | [place] [address] | [place] [address] | | | | | [phone] | [phone] | | | | | | | [...] | | | | | | [place] [address] | | | | | | [phone] | | | | | | | | +--------+ + + + + | 11/20/ | Implant | Cardiology | Daljit Singletary, | Remote Device | | 2019 | Monitor | | [facility] | Interrogation | | | | | [place], | (Primary Dx); | | | | | [place] [address] | Presence of | | | | | [phone] | permanent cardiac | | | | [...]
--- OUTSIDE RECORDS SUMMARY | ~2019-10-27 | XMS | Encounter Summary ---
Demographics + + + | Address | [address] | | | [place] [address] | + + + | Home Phone [...] Providers + +------+ + | Care Adjunct Writing Instructor Name | Role | Phone | + +------+ + PCP | Unavailable | + +------+ + Encounter Details +--------+ + + + + | Date | Type | Department | Care Team | Description | +--------+ + + + + | 09/29/ | Hospital | [facility] | | | | 1995 | Encounter | MED CTR EMERGENCY | | | | | | [place] [address] | | | | | | [place] | | | | | | [address] | | | | | | [phone] | | | +--------+ + + + [...] | | | | | | [place] [address] | | | | | | [phone] | | | | | | | | +--------+ + + + + | 11/20/ | Implant | Cardiology | Daljit Singletary, | Remote Device | | 2018 | Monitor | | [address] [facility] | Interrogation | | | | | [place], | (Primary Dx); | | | | | [place] [address] | Presence of | | | | | [phone] | permanent cardiac | | | | [...]
--- OUTSIDE RECORDS SUMMARY | ~2019-10-27 | XMS | Encounter Summary ---
Demographics + + + | Address | [address] | | | [place] [address] | + + + | Home Phone [...] + +------+ + | Care Machine Stuffer Automatic Name | Role | Phone | [...] | Visit | CARDIOLOGY [address] | MOLDER FITTING [address] [place] | Dx) | | | | [place], | [place], [place] | | | | | [place] [address] | [address] | | | | | [phone] | | | +--------+---------+ + + + [...] Sanchez Date: December 21, 2012 : 1960 Buckle Attacher: PARISA Velazquez Device Cnc Manager: [employer] Sense (mV) Impedance (?) Capture (V) Capture (ms) A Lead 4-5.6 423 1.5 0.09 RV Lead >31.36 539 2.0 0.09 LV Lead Battery Impedance (?): 301 Battery Voltage (V): 2.8 W[place] Interval (ms): 140 AR Interval (ms): 210 VA Conduction: Mode Switch Events: N/A % of time: -HORSE WRANGLER: 0.6 AP-HORSE WRANGLER: 1.3 -VS: 23.9 AP-VS: 74.2 HORSE WRANGLER: Magnetic Rate: 85 LINDA: 65 LEAH: Current [...] | | | | | | [place] [address] | | | | | | [phone] | | | | | | | | +--------+ + + + + | 11/20/ | Implant | Cardiology | Gemini Shaistakenneth, | Remote Device | | 2019 | Monitor | | MD [address] [facility] | Interrogation | | | | | [place], | (Primary Dx); | | | | | [place] [address] | Presence of | | | | | [phone] | permanent cardiac | | | | [...]
--- OUTSIDE RECORDS SUMMARY | ~2019-10-27 | XMS | Encounter Summary ---
Demographics + + + | Address | [address] | | | [place] [address] | + + + | Home Phone [...] Providers + +------+ + | Care Truck Sales Representative Name | Role | Phone [...] Refill | | 2013 | | MEDICINE [place] | DO [address] | | | | | [address] | [place] | | | | | [place] | [address] | | | | | [address] | | | | | | [phone] | | | +--------+--------+ + + + [...] W | | | | | | [place], | | | | | | [place] [address] | | | | | | [phone] | | | | | | | | +--------+ + + + + | 11/20/ | Implant | Cardiology | Daljit Singletary, | Remote Device | | 2018 | Monitor | | [facility] | Interrogation | | | | | [place], | (Primary Dx); | | | | | [place] [address] | Presence of | | | | | [phone] | permanent cardiac | | | | [...]
--- OUTSIDE RECORDS SUMMARY | ~2019-10-27 | XMS | Encounter Summary ---
Demographics + + + | Address | [address] | | | [place] [address] | + + + | Home Phone [...] Providers + +------+ + | Care Manufacturing Accountant Name | Role | Phone | [...] | RN | | | | | [place], | | | | | | [place] [address] | | | | | | [phone] | | | +--------+ + + + [...] W | | | | | | [place], | | | | | | [place] [address] | | | | | | [phone] | | | | | | | | +--------+ + + + + | 11/20/ | Implant | Cardiology | Daljit Singletary, | Remote Device | | 2019 | Monitor | | [address] | Interrogation | | | | | [place], | (Primary Dx); | | | | | [place] [address] | Presence of | | | | | [phone] | permanent cardiac | | | | [...]
--- OUTSIDE RECORDS SUMMARY | ~2019-10-27 | XMS | Encounter Summary ---
Demographics + + + | Address | [address] | | | [place] [address] | + + + | Home Phone [...] Providers + +------+ + | Care Licensed Electrician Name | Role | Phone | [...] [place] | | | | | [address] [place], [place] | [address] | | | | | [address] | | | | | | [phone] | | | +--------+ + + + [...] | | | | | | [place] [address] | | | | | | [phone] | | | | | | | | +--------+ + + + + | 11/20/ | Implant | Cardiology | Daljit Singletary, | Remote Device | | 2018 | Monitor | | [address] [facility] | Interrogation | | | | | [place], | (Primary Dx); | | | | | [place] [address] | Presence of | | | | | [phone] | permanent cardiac | | | | [...]
--- OUTSIDE RECORDS SUMMARY | ~2019-10-27 | XMS | Encounter Summary ---
Demographics + + + | Address | [address] | | | [place] [address] | + + + | Home Phone [...] Providers + +------+ + | Care Vascular Radiologist Name | Role | Phone | + [...] Provider Unknown | | | | | [place], [place] | [phone] | | | | | [address] | | | | | | [phone] | | | +--------+ + + + [...] + + + +---------+ + + | [place]-3 Fatty | CAPS, one capsule by | [...] | | | | | | | #[id number], exp 07/2016 | | | | | [...] | | | | | | [place] [address] | | | | | | [phone] | | | | | | | | +--------+ + + + + | 11/20/ | Implant | Cardiology | Daljit Singletary, | Remote Device | | 2018 | Monitor | | MD [address] | Interrogation | | | | | [place], | (Primary Dx); | | | | | [place] [address] | Presence of | | | | | [phone] | permanent cardiac | | | | [...]
--- OUTSIDE RECORDS SUMMARY | ~2019-10-27 | XMS | Encounter Summary ---
Demographics + + + | Address | [address] | | | [place] [address] | + + + | Home Phone [...] Team Providers + +------+ + | Care Dye Can Operator Name | Role | Phone | + +------+ + PCP | Unavailable | + +------+ + Encounter Details +--------+ + + + + | Date | Type | Department | Care Team | Description | +--------+ + + + + | 06/12/ | [facility] | [facility] | Hunter Antunez, | | | 2007 - | Encounter | MED CTR ICU [address] | MD [address] | | | | | [place], | [place] | | | 06/15/ | | [place] [address] | [address] | | | 2007 | | [phone] | | | +--------+ + + + [...] | | | | | | [place] [address] | | | | | | [phone] | | | | | | | | +--------+ + + + + | 11/20/ | Implant | Cardiology | Daljit Singletary, | Remote Device | | 2019 | Monitor | | MD [address] | Interrogation | | | | | [place], | (Primary Dx); | | | | | [place] [address] | Presence of | | | | | [phone] | permanent cardiac | | | | [...]
--- OUTSIDE RECORDS SUMMARY | ~2019-10-27 | XMS | Encounter Summary ---
Demographics + + + | Address | [address] | | | [place] [address] | + + + | Home Phone [...] Providers + +------+ + | Care Sanitation Truck Driver Name | Role | Phone [...] | Aneurysmal | [place], | [address] | | | | | dilatation | PARISA Solis | [place], | | | | | ([facility]) | [address] | [place] | | | | | Procedures | [place] | [address] | | | | | ECHO | [place], | Phone: | | | | | Complete | [place] | [phone] | | | | | | [address] | Fax: | | | | | | Phone: | [phone] | | | | | | [phone] | | | | | | | Fax: | | | | | | | [phone] | | +--------+--------+ + + + + [...] | | | | | Aneurysmal | [place], | [address] | | | | | dilatation | PARISA Solis | [place], | | | | | ([facility]) | [address] | [place] | | | | | Procedures | [place] | [address] | | | | | ECHO | [place], | Phone: | | | | | Complete | [place] | [phone] | | | | | | [address] | Fax: | | | | | | Phone: | [phone] | | | | | | [phone] | | | | | | | Fax: | | | | | | | [phone] | | +--------+--------+ + + + + Encounter Details +--------+ + + + + | Date | Type | Department | Care Team | Description | +--------+ + + + + | 11/16/ | Hospital | [facility] | Silvia, | Aneurysmal | | 2017 | Encounter | MED CTR ECHO [address] | Janeen, CIVIL ENGINEER LAND DEVELOPMENT [address] | dilatation (HCC) | | | | [place] | [place], | | | | | [place], [place] [address] | [place] [address] | | | | | [phone] | [phone] | | | | | | | [...] + + + +---------+ + + | [place]vel[place]-3 Fatty | CAPS, one capsule by | [...] | | | | | | [place] [address] | | | | | | [phone] | | | | | | | | +--------+ + + + + | 11/20/ | Implant | Cardiology | Sydni Singletary, | Remote Device | | 2019 | Monitor | | MD [facility] | Interrogation | | | | | [place], | (Primary Dx); | | | | | [place] [address] | Presence of | | | | | [phone] | permanent cardiac | | | | [...] Patient Name VICTOR HUGO | | | [place] Room Number SARAH Patient | | | [id number] Date of Study 11/16/2017 Number | | | Visit Number [id number] | | | Referring Physician GURJIT TROY Number | | | NORMA SOLIS Date | | | of 1960 Banana Room Cutter ROMAINE | | | MARISSA TIPTON Age 57 year(s) Interpreting | | | GURJIT TROY | | | Novelty Worker SYDNI SINGLETARY, | | | MD | | | Gender Male Nurse | | | Stress Fuel Efficient Automobile Designer Procedure Type of | | | Study [...] | | | EF | | | Eqdehidzk21% Left Ventricle Diastolic Dimension: 5.12 cm | [...] Volume: 46.33 ml | | | EF Azcleugrr92% | | | | | | Left [...] Rad Results In - 11/16/2017 1:48 PM [facility] Transthoracic Echocardiography Report | | (TTE) Demographics Patient Name VICTOR HUGO BARRY Room Number SARAH | | Patient [id number] Date of Study 11/16/2017 Number Visit Number | | [id number] Referring Physician GURJIT TROY | | Number NORMA SOLIS Date of | | 1960 Banana Room Cutter ROMAINE TIPTON [facility] Age 57 year(s) | | Interpreting GURJIT TROY Novelty Worker | | SYDNI SINGLETARY MD | [...] LA Volume: 46.33 ml | | EF Ffcnichqb59% Left Ventricle Diastolic Dimension: 5.12 cm Systolic [...] LA Volume: 46.33 ml | | EF Eixztwwij00% | | | | Left Ventricle | [...]
--- OUTSIDE RECORDS SUMMARY | ~2019-10-27 | XMS | Encounter Summary ---
Demographics + + + | Address | [address] | | | [place] [address] | + + + | Home Phone [...] Providers + +------+ + | Care Transportation Clerk Name | Role | Phone | [...] 2015 | | CARDIOLOGY [address] | SIDE SPLITTER [address] [place] | reprogramming/check | | | | [place], | [place], [place] | DO NOT DELETE | | | | [place] [address] | [address] | (Primary Dx); | | | | [phone] | | Pacemaker - | | | [...] | | | | | | [place], | | | | | | [place] [address] | | | | | | [phone] | | | | | | | | +--------+ + + + + | 11/20/ | Implant | Cardiology | Daljit Singletary, | Remote Device | | 2018 | Monitor | | [address] [place] | Interrogation | | | | | [place], | (Primary Dx); | | | | | [place] [address] | Presence of | | | | | [phone] | permanent cardiac | | | | [...] | | 2. Coronary artery disease involving menominee coronary artery of | | | menominee heart without angina pectoris I25.10 414.01 ECHO [...]
--- OUTSIDE RECORDS SUMMARY | ~2019-10-27 | XMS | Encounter Summary ---
Demographics + + + | Address | [address] | | | [place] [address] | + + + | Home Phone [...] Team Providers + +------+ + | Care Attending Anesthesiologist Name | Role | Phone | + [...] | | | | | region | [address] | | | | | | Procedures | [address] | | | | | | CT | [place], [place] | | | | | | Myelography | [address] | | | | | | Lumbar Spine | Phone: | | | | | | | [phone] | | | | | | | Fax: | | | | | | | [phone] | | +--------+--------+ + + + + [...] | | | | | region | [address] | | | | | | Procedures | [address] | | | | | | CT | [place], [place] | | | | | | Myelography | [address] | | | | | | Lumbar Spine | Phone: | | | | | | | [phone] | | | | | | | Fax: | | | | | | | [phone] | | +--------+--------+ + + + + Encounter Details +--------+ + + + + | Date | Type | Department | Care Team | Description | +--------+ + + + + | 04/07/ | Hospital | [facility] | Pia Akhtar | Spinal stenosis, | | 2016 | Encounter | MED CTR CT [address] | MD [address] | lumbar region | | | | [place], | [address] | | | | | [place] [address] | [place] [address] | | | | | [phone] | [phone] | | | | | | | [...] + + + +---------+ + + | [place]-3 Fatty | CAPS, one capsule by | [...] W | | | | | | [place], | | | | | | [place] [address] | | | | | | [phone] | | | | | | | | +--------+ + + + + | 11/20/ | Implant | Cardiology | Daljit Singletary, | Remote Device | | 2018 | Monitor | | [facility] | Interrogation | | | | | [place], | (Primary Dx); | | | | | [place] [address] | Presence of | | | | | [phone] | permanent cardiac | | | | [...]
--- OUTSIDE RECORDS SUMMARY | ~2019-10-27 | XMS | Encounter Summary ---
Demographics + + + | Address | [address] | | | [place] [address] | + + + | Home Phone [...] + +------+ + | Care Director Of Provider Relations Name | Role | Phone | + [...] [place], [place] | | | | | [place] | | [address] Phone: | | | | | CYSTO/URETER | | [phone] | | | | | O | | Fax: | | | | | W/LITHOTRIPS | | [phone] | | | | | Y &INDWELL [...] + + | 04/13/ | Hospital | [facility] | Matthew Uriarte | Preoperative | | 2019 | Encounter | MED CTR OR INTRA OP | Dahl, MD [address] | clearance (Primary | | | | [address] | [place] | Dx); Left ureteral | | | | [place] | [address] | calculus; Kidney | | | | [address] | | stones | | | | [phone] | | | +--------+ + + + [...] Care Everywhere.Kidney Stones, Treating: Ureteroscopic Stone Removal (Turkish)Stents, Ureteral (Turkish)documented in this encounter Medications at Time of [...] + + + +---------+ + + | [place]-3 Fatty | CAPS, one capsule by [...] | | | | | | ione coronary | | | | | | | artery of ione | | | | | | | [...] W | | | | | | [place], | | | | | | [place] [address] | | | | | | [phone] | | | | | | | | +--------+ + + + + | 11/20/ | Implant | Cardiology | Daljit Singletary, | Remote Device | | 2018 | Monitor | | [address] [facility] | Interrogation | | | | | [place], | (Primary Dx); | | | | | [place] [address] | Presence of | | | | | [phone] | permanent cardiac | | | | [...] [facility] | | | | | | at:[phone]. | | | | + + + [...] + | Performed at: 01 - [facility] [address], | REFERENCE LAB | | [place], [place] [id number] Screw Remover: Yeny Rios MD, Phone: | ARSH CASTANON | | [phone] | | + + + + + + + + | Performing | Address | City/State/Zipcode | Phone Number | | Organization | | | | + + + + + | REFERENCE LAB | [address] | [place] [address] | [phone] | | [facility] | Drive [...] ST. | [address] | [place] | [phone] | | [facility] | | [address] | | | - LABORATORY | | [...] ST. | [address] | [place] | [phone] | | [facility] | | [address] | | | - LABORATORY | | [...] [address] | [place] | [phone] | | [facility] | | [address] | | | - LABORATORY | | [...] ST. | [address] | [place] | [phone] | | [facility] | | [address] | | | - LABORATORY | | [...] | 0.92 | 0.70 - 1.30 | [facility] | | | | | mg/dL | [facility] | | | | | | MEDICAL | | | | | | CENTER - | | | | | | LABORATORY | | + + + + + + | eGFR if not | >60Comment: GLOMERULAR | >=60 | BERTHOLD | | | | FILTRATION | mL/min/1.73m2 | [facility] | | | [place] | RATE,ESTIMATED | | MEDICAL | | | | mL/min/1.06r8Qyrh than | | CENTER - | | [...] [address] | [place] | [phone] | | [facility] | | [address] | | | - LABORATORY | | [...] day), First | | | dose on [facility] 04/13/19 at 1400, | | | Start 8 hours after pre-op dose., | | | Post-op/Phase II | | + +---+ | | | + +---+ | albuterol 2.5 mg/3 mL nebulizer | | | solution 2.5 mg 2.5 mg, | | | Nebulization, ONCE PRN, Wheezing, | | | Starting [facility] 04/13/19 at 0917, | | | [...] HR < 40, | | | Starting [facility] 04/13/19 at 0917, For | | [...] | | | | | | | vvmlnl-qof-cpdnp use of at least | | | [...]
--- OUTSIDE RECORDS SUMMARY | ~2019-10-27 | XMS | Encounter Summary ---
Demographics + + + | Address | [address] | | | [place] [address] | + + + | Home Phone [...] Team Providers + +------+ + | Care Science Faculty Member Name | Role | Phone | + +------+ + | Darion Holden DO | PCP | | + +------+ + Encounter Details +--------+ + + + + | Date | Type | Department | Care Team | Description | +--------+ + + + + | 08/05/ | Hospital | [facility] | Emmanuel Daniel MD | | | 2009 | Encounter | MED CTR XRAY [address] | [address] | | | | | [place] | [address] [place], [place] | | | | | [place] [address] | [address] | | | | | [phone] | | | +--------+ + + + [...] W | | | | | | [place], | | | | | | [place] [address] | | | | | | [phone] | | | | | | | | +--------+ + + + + | 11/20/ | Implant | Cardiology | Daljit Singletary, | Remote Device | | 2018 | Monitor | | [address] | Interrogation | | | | | [place], | (Primary Dx); | | | | | [place] [address] | Presence of | | | | | [phone] | permanent cardiac | | | | [...]
--- OUTSIDE RECORDS SUMMARY | ~2019-10-27 | XMS | Encounter Summary ---
Demographics + + + | Address | [address] | | | [place] [address] | + + + | Home Phone [...] Providers + +------+ + | Care Rn Baby Name | Role | Phone | + +------+ + PCP | Unavailable | + +------+ + Encounter Details +--------+ + + + + | Date | Type | Department | Care Team | Description | +--------+ + + + + | 02/21/ | [facility] | [facility] | Geri Angel, | | | 2011 | Encounter | MED CTR XRAY [address] | MOLD FILLING OPERATOR [address] | | | | | [place] | St [place] | | | | | [place] [address] | [address] | | | | | [phone] | | | +--------+ + + + [...] | | | | | | [place] [address] | | | | | | [phone] | | | | | | | | +--------+ + + + + | 11/20/ | Implant | Cardiology | Daljit Singletary, | Remote Device | | 2019 | Monitor | | [address] | Interrogation | | | | | [place], | (Primary Dx); | | | | | [place] [address] | Presence of | | | | | [phone] | permanent cardiac | | | | [...]
--- OUTSIDE RECORDS SUMMARY | ~2019-10-27 | XMS | Encounter Summary ---
Demographics + + + | Address | [address] | | | [place] [address] | + + + | Home Phone [...] Team Providers + +------+ + | Care Tafe Teacher Name | Role | Phone | [...] | RN | | | | | [place], | | | | | | [place] [address] | | | | | | [phone] | | | +--------+ + + + [...] | | | | | | [place] [address] | | | | | | [phone] | | | | | | | | +--------+ + + + + | 11/20/ | Implant | Cardiology | Daljit Singletary, | Remote Device | | 2019 | Monitor | | [address] | Interrogation | | | | | [place], | (Primary Dx); | | | | | [place] [address] | Presence of | | | | | [phone] | permanent cardiac | | | | [...]
--- OUTSIDE RECORDS SUMMARY | ~2019-10-27 | XMS | Encounter Summary ---
Demographics + + + | Address | [address] | | | [place] [address] | + + + | Home Phone [...] Providers + +------+ + | Care Floor Associate Name | Role | Phone | [...] [address] | | | | | [address] | [place] | | | | | [phone] | [address] | | | | | | [phone] | | | | | | | [...] W | | | | | | [place], | | | | | | [place] [address] | | | | | | [phone] | | | | | | | | +--------+ + + + + | 11/20/ | Implant | Cardiology | Daljit Singletary, | Remote Device | | 2018 | Monitor | | MD [address] | Interrogation | | | | | [place], | (Primary Dx); | | | | | [place] [address] | Presence of | | | | | [phone] | permanent cardiac | | | | [...]
--- OUTSIDE RECORDS SUMMARY | ~2019-10-27 | XMS | Encounter Summary ---
Demographics + + + | Address | [address] | | | [place] [address] | + + + | Home Phone [...] Providers + +------+ + | Care Consulting Sales Manager Name | Role | Phone [...] | 06/17/ | Telephone | [facility] | [place], | Lab Order (due for | | 2015 | | CARDIOLOGY [address] | PARISA [place] [address] | fasting labs prior | | | | [place], | [place], | to appt) | | | | [place] [address] | [place] [address] | | | | | [phone] | [phone] | | | | | | | [...] | | | | | | [place] [address] | | | | | | [phone] | | | | | | | | +--------+ + + + + | 11/20/ | Implant | Cardiology | Daljit Singletary, | Remote Device | | 2018 | Monitor | | [address] | Interrogation | | | | | [place], | (Primary Dx); | | | | | [place] [address] | Presence of | | | | | [phone] | permanent cardiac | | | | [...]
--- OUTSIDE RECORDS SUMMARY | ~2019-10-27 | XMS | Encounter Summary ---
Demographics + + + | Address | [address] | | | [place] [address] | + + + | Home Phone [...] Team Providers + +------+ + | Care Naturopath Name | Role | Phone | + [...] | | | | exertion | | [place] | | | | | Chest pain | | [place], [place] | | | | | on exertion | | [address] | | | | | | | Phone: | | | | | | | [phone] | | | | | | | Fax: | | | | | | | [phone] | +--------+--------+ + + + + Encounter Details +--------+ + + + + | Date | Type | Department | Care Team | Description | +--------+ + + + + | 04/27/ | [facility] | Martell Hart | Chest pain on | | 2014 - | | MED CTR MEDICAL | Sanjay Palacios MD | exertion (Primary | | | | [address] [place] | [address] | Dx); Dyspnea on | | 03/20/ | | [place] [address] | [place] | exertion; Essential | | 2014 | | [phone] | [address] | hypertension; Acute | | | | | | chest pain; | | | | | [place], | Dizziness, | | | | | [address] | nonspecific; Mixed | | | | | [place], [place] | anxiety depressive | | | | | [address] | disorder; PUD | | | | | [phone] | (peptic ulcer | | | | [...] might be different f rom the original. [facility] DISCHARGE SUMMARY Pt. Name/Age/: Moe Sanchez 55 [...] 911 aka: NITROSTAT ONE TOUCH DELICA LANCETS [facility] Check glucose as needed for hypoglycemia OSTEO [...] Daily. to reduce urinary frequency - Lot #[id number], exp 07/2016 aka: RAPAFLO UNCODED MEDICATION - [...] hospital follow up Contact information: [address] [address] Call PARISA Russell. Specialty: Nurse Practitioner Why: As needed Contact information: [address] [place] [address] Condition: Patient being discharged with condition improved. Diet: Heart healthy, avoid acidic drinks and foods, spicy foods, too much coffee. Greater than 30 minutes were spent on discharge and coordination of post-hospital care. Electronically signed by: Thierry Fregoso DO, 03/20/2015 11:22 [facility] Portions of this chart may have been created with [employer] ([employer]) voice recognition software. Occasi onal wrong-word or [...] afford the prescribed medication, you can try fdvy-lcr-couuepd acid blockers, such as Pepcid AC, Tagamet, [...] or as directed by your healthcare provider 4312-2558 [email or web address]. [address] [place] [address]. All righ ts reserved. This information is [...] + + + +---------+ + + | [place]-3 Fatty | CAPS, one capsule by | [...] | | | | | | | #[id number], exp 07/2016 | | | | | [...] DO - 03/19/2015 10:09 PM PDT . [facility] PROGRESS NOTE Patient: Moe Sanchez : 1960: Age: 55 y.o. MedRec: [id number] PCP: Kirk French Admission date: 03/18/2015 Hospital [...] 1708 03/18/15 1528 TROPONINI <0.01 <0.01 0.01 [facility] ECHOCARDIOGRAM REPORT STUDY DATE: 03/19/2015 [...] changes. No results for input(s): PHART, PO2ART, PGX7QBT, RBS1LVG, BEART, U1FSQPUB in the last 168 h ours. No results for input(s): SPECSOURCE, PHPOCB, HCO3, TCO2, BEART, BE, TZQN6SIU in the last 16 8 hours. Invalid input(s): CBJCA4BM, QVYQ9TB Point of care glucose: No results for [...] minutes today. Thierry Fregoso DO 03/19/2015 22:09 [facility] Portions of this chart may have been created with [employer] ([employer]) voice recognition software. Occasi onal wrong-word or sound-alike substitutions may have occurred due to the inherent granger itations of voice recognition software. Please read the chart carefully and recognize, using context, where these substitutions have occurred Belén Cho RN - 03/19/2015 11:03 AM [id number] Report given to Marlen morejon who is [...] | | | | | | [place] [address] | | | | | | [phone] | | | | | | | | +--------+ + + + + | 11/20/ | Implant | Cardiology | Daljit Singletary, | Remote Device | | 2018 | Monitor | | [address] [facility] | Interrogation | | | | | [place], | (Primary Dx); | | | | | [place] [address] | Presence of | | | | | [phone] | permanent cardiac | | | | [...] Performed At | + + + | [facility] ECHOCARDIOGRAM REPORT | | | [...] | | Signed by: Daljit Singletary MD [facility] 03/19/2015 15:44 | | | Stonemason Supervisor: Dewey Valdez RDMS | | + + [...] [address] | [place] | [phone] | | [facility] | | [address] | | | - LABORATORY | | [...] | mL/min/1.73m2 | MICHELLE | | | [place] | RATE,ESTIMATED | | MEDICAL | | | | mL/min/1.84b4Hdku than | | CENTER - | | [...] [address] | [place] | [phone] | | [facility] | | [address] | | | - LABORATORY | | [...] [address] | [place] | [phone] | | [facility] | | [address] | | | - LABORATORY | | [...] ST. | [address] | [place] | [phone] | | [facility] | | [address] | | | - LABORATORY | | [...] [address] | [place] | [phone] | | [facility] | | [address] | | | - LABORATORY | | [...] [address] | [place] | [phone] | | [facility] | | [address] | | | - LABORATORY | | [...] | | | | | | [facility] | | | | | | MEDICAL [...] [address] | [place] | [phone] | | [facility] | | [address] | | | - LABORATORY | | [...] + | [facility] | [address] | [place] | [phone] | | [facility] | | [address] | | | - LABORATORY | | [...] + | [facility] | [address] | [place] | [phone] | | [facility] | | [address] | | | - LABORATORY | | [...] [address] | [place] | [phone] | | [facility] | | [address] | | | - LABORATORY | | [...] | | | FILTRATION | mL/min/1.73m2 | [facility] | | | [place] | RATE,ESTIMATED | | MEDICAL | | | | mL/min/1.92j5Uzbb than | | CENTER - | | [...] + | [facility] | [address] | [place] | [phone] | | [facility] | | [address] | | | - LABORATORY | | [...] | | | | g/dL | [facility] | | | | [...] | | | | | | [facility] | | [...] [address] | [place] | [phone] | | [facility] | | [address] | | | - LABORATORY | | [...]
--- OUTSIDE RECORDS SUMMARY | ~2019-10-27 | XMS | Encounter Summary ---
Demographics + + + | Address | [address] | | | [place] [address] | + + + | Home Phone [...] Providers + +------+ + | Care Plate Hanger Name | Role | Phone | + +------+ + | aSrah French MD | PCP | | + [...] | | | | Sinoatrial | Jose, ADHESIVE BANDAGE MAKING OPERATOR | [address] | | | | | node | [address] | [place], | | | | | dysfunction | [place] | [place] | | | | | (HCC) | [place] | [address] | | | | | Coronary | [address] | Phone: | | | | | artery | Phone: | [phone] | | | | | disease | [phone] | Fax: | | | | | involving | Fax: | [phone] | | | | | rosebud | [phone] | | | | | | coronary | | | | | | | artery of | | | | | | | rosebud heart | | | | | | [...] | | | | | | Complete [place] | | | | | | | ECHO HEART | | | | | | | XTHORACIC,[place] | | | | | | | MPLETE W | | | | | | | [place]OPPLER [place] | | | | | | [...] | Visit | CARDIOLOGY [address] | ADHESIVE BANDAGE MAKING OPERATOR [address] | dysfunction (HCC) | | | | [place], | [place], [place] | with symptomatic | | | | [place] [address] | [address] | bradycardia (Primary | | | | [phone] | | Dx); Coronary | | | | | | artery disease | | | | | | involving rosebud | | | | | | coronary artery of | | | | | | rosebud heart without | | | | | [...] Preventative health care Coronary artery disease involving rosebud coronary artery without angina pectoris Cannabis abuse, [...] 3rd dose, call 911 100 tablet 3 [place]-3 Fatty Acids (SALMON OIL-1000 PO) CAPS, one [...] scanned Paceart documentation and device PDF in Qewz for interrogation (with progr amming changes) performed [...] ventricular arrhythmia performed by Dr. Gambino at [facility] on 01/30/2013. Patient had spontaneous PVCs [...] to go back in 3 days to [place] for an attempt of ablation under general [...] this chart may have been created with [employer] voice recognition software. Occasi onal wrong-word [...] | | | | | | [place] [address] | | | | | | [phone] | | | | | | | | +--------+ + + + + | 11/20/ | Implant | Cardiology | Sydni Singletary, | Remote Device | 2018 | Monitor | | MD Sim [facility] | Interrogation | | | | | [place], | (Primary Dx); | | | | | [place] [address] | Presence of | | | | | [phone] | permanent cardiac | | | | [...] VICTOR HUGO | [facility] | | [place] Room Number SARAH Patient | [facility] | | [id number] Date of Study 06/16/2016 Number | - IMAGING | | Visit Number [id number] | | | Referring Physician HELLBERG JOSE Number Date of 1960 | | | Air Compressor Engineer LUIS FERNANDO DUARTE Age | | | 56 year(s) Interpreting | | | GURJIT TROY | | | Rn Cardiovascular SYDNI SINGLETARY, | | | Gender | | | Male Nurse Procedure Type of Study TTE | | | procedure: ECHO Complete. Procedure dateDate: 06/16/2016Start: 10:55 | | | AM Technical Quality: Adequate visualizationStudy Location: Echo | | | LabIndications: CAD [place] CORONARY ARTERY 414.01/ I25.10 and | | [...] BARRY Room Number SARAH | | Patient [id number] Date of Study 06/16/2016 Number Visit Number | | [id number] Referring Physician JOSE ARMANDO GARCIA Number | | Date of 1960 Air Compressor Engineer LUIS FERNANDO DUARTE Age | | 56 year(s) Interpreting GURJIT TROY | | Rn Cardiovascular SYDNI SINGLETARY, | | Gender Male NurseProcedureType of Study TTE | | procedure: ECHO Complete.Procedure dateDate: 07/26/2016Start: 10:55 AMTechnical Quality: | | Adequate visualizationStudy Location: Echo LabIndications: CAD [place] CORONARY ARTERY | | 414.01/ I25.10 and [...] ST. | [address] | [place] | [phone] | | [facility] | | [address] | | | - IMAGING | | [...] | | 2. Coronary artery disease involving rosebud coronary artery of | | | rosebud heart without angina pectoris I25.10 414.01 ECHO [...]
--- OUTSIDE RECORDS SUMMARY | ~2019-10-27 | XMS | Encounter Summary ---
Demographics + + + | Address | [address] | | | [place] [address] | + + + | Home Phone [...] Providers + +------+ + | Care Marketing Education Teacher Name | Role | Phone [...] 2019 | | GASTROENTEROLOGY | [address] [place] | | | | | [address] [place] | [address] [place], [place] | | | | | [address] [place], [place] | [address] | | | | | [address] | | | | | | [phone] | | | +--------+ + + + [...] | | | | | | [place] [address] | | | | | | [phone] | | | | | | | | +--------+ + + + + | 11/20/ | Implant | Cardiology | Daljit Singletary, | Remote Device | | 2018 | Monitor | | [address] | Interrogation | | | | | [place], | (Primary Dx); | | | | | [place] [address] | Presence of | | | | | [phone] | permanent cardiac | | | | [...]
--- OUTSIDE RECORDS SUMMARY | ~2019-10-27 | XMS | Encounter Summary ---
Demographics + + + | Address | [address] | | | [place] [address] | + + + | Home Phone [...] Providers + +------+ + | Care Associate Producer Name | Role | Phone | [...] | Refill | [facility] [place] | Joseph, | Medication Refill | | 2014 | | CARDIOLOGY [address] | PARISA [address] | | | | | [place], | [place], | | | | | [place] [address] | [place] [address] | | | | | [phone] | | | | | | | [...] | | | | | | [place], | | | | | | [place] [address] | | | | | | [phone] | | | | | | | | +--------+ + + + + | 11/20/ | Implant | Cardiology | Daljit Singletary, | Remote Device | | 2019 | Monitor | | [facility] | Interrogation | | | | | [place], | (Primary Dx); | | | | | [place] [address] | Presence of | | | | | [phone] | permanent cardiac | | | | [...]
--- OUTSIDE RECORDS SUMMARY | ~2019-10-27 | XMS | Encounter Summary ---
Demographics + + + | Address | [address] | | | [place] [address] | + + + | Home Phone [...] Team Providers + +------+ + | Care Export Documents Clerk Name | Role | Phone | [...] | Telephone | [facility] [place] | Oliver, | Other (not feeling | | 2013 | | [place] [address] | [address]ISA [address] | kendall) | | | | [place], | [place], | | | | | [place] [address] | [place] [address] | | | | | [phone] | [phone] | | | | | | | [...] W | | | | | | [place], | | | | | | [place] [address] | | | | | | [phone] | | | | | | | | +--------+ + + + + | 11/20/ | Implant | Cardiology | Daljit Singletary, | Remote Device | | 2018 | Monitor | | [address] [facility] | Interrogation | | | | | [place], | (Primary Dx); | | | | | [place] [address] | Presence of | | | | | [phone] | permanent cardiac | | | | [...]
--- OUTSIDE RECORDS SUMMARY | ~2019-10-27 | XMS | Encounter Summary ---
Demographics + + + | Address | [address] [place] [address] | | | [place] [address] | + + + | Home Phone [...] [place] | | | | | [address] | | + + + + + Care Team Providers + +------+ + | Care Mechanical Service Representative Name | Role | Phone [...] | 2019 | | Center at [facility] [address] | MD [address] | | | | | [address] | [facility] [place] | | | | | Mailcode: [facility] | [address] | | | | | for Health and | [phone] | | | | | [facility] | | | | | | [facility] [place] | | | | | | [address] | | | | | | [phone] | | | +--------+ + + + [...]
--- OUTSIDE RECORDS SUMMARY | ~2019-10-27 | XMS | Encounter Summary ---
Demographics + + + | Address | [address] | | | [place] [address] | + + + | Home Phone [...] Team Providers + +------+ + | Care Kit Planner Name | Role | Phone | [...] + | 06/27/ | Telephone | [facility] | Michael Amanda, | ED Follow-up (s/p | | 2014 | | MEDICINE [place] | DO [address] | ATV [facility]) | | | | [address] | [place] | | | | | [place] | [address] | | | | | [address] | | | | | | [phone] | | | +--------+ + + + [...] W | | | | | | [place], | | | | | | [place] [address] | | | | | | [phone] | | | | | | | | +--------+ + + + + | 11/20/ | Implant | Cardiology | Daljit Singletary, | Remote Device | | 2018 | Monitor | | MD [place] [address] | Interrogation | | | | | [place], | (Primary Dx); | | | | | [place] [address] | Presence of | | | | | [phone] | permanent cardiac | | | | [...]
--- OUTSIDE RECORDS SUMMARY | ~2019-10-27 | XMS | Encounter Summary ---
Demographics + + + | Address | [address] | | | [place] [address] | + + + | Home Phone [...] Team Providers + +------+ + | Care Category Development Analyst Name | Role | Phone [...] CARDIOLOGY [address] | MD Sim [place] | reprogramming/check | | | | [place], | [place], | DO NOT DELETE | | | | [place] [address] | [place] [address] | (Primary Dx); | | | | [phone] | [phone] | Pacemaker - | | | | [...] | | | | | | [place] [address] | | | | | | [phone] | | | | | | | | +--------+ + + + + | 11/20/ | Implant | Cardiology | Daljit Singletary, | Remote Device | | 2019 | Monitor | | [address] [facility] | Interrogation | | | | | [place], | (Primary Dx); | | | | | [place] [address] | Presence of | | | | | [phone] | permanent cardiac | | | | [...]
--- OUTSIDE RECORDS SUMMARY | ~2019-10-27 | XMS | Encounter Summary ---
Demographics + + + | Address | [address] | | | [place] [address] | + + + | Home Phone [...] Team Providers + +------+ + | Care Cardiopulmonary Technologist Chief Name | Role | Phone | [...] | Palpitations | [address] | | | | | Procedures | [address] | [address] [place] | | | | | ECHO | [place], | [place], [place] | | | | | Complete | [place] [address] | [address] | | | | | | Phone: | Phone: | | | | | | [phone] | [phone] | | | | | | Fax: | Fax: | | | | | | [phone] | [phone] | +--------+--------+ + + + + Reason [...] + + | 12/21/ | Office | [facility] | Daljit Singletary, | Palpitations | | 2012 | Visit | CARDIOLOGY [address] | [address] | (Primary Dx); PVC | | | | [place], | [place], | (premature | | | | [place] [address] | [place] [address] | ventricular | | | | [phone] | [phone] | contraction) | | | | | [...] himself to the emergency department at [facility] in [place], [place]. Today, patient is apprehensive of the [...] tablet Take 1,000 mg by mouth Daily. [place]-3 Fatty Acids (SALMON OIL-1000 PO) CAPS, one [...] tablet Take 1,000 mg by mouth Daily. [place]-3 Fatty Acids (SALMON OIL-1000 PO) CAPS, one [...] Gay Date: December 21, 2012 : 1960 Scale Tank Operator: PARISA Velazquez Device Cosmetic Dentist: [employer] Sense (mV) Impedance (?) Capture (V) Capture (ms) A Lead 4-5.6 423 1.5 0.09 RV Lead >31.36 539 2.0 0.09 LV Lead Battery Impedance (?): 301 Battery Voltage (V): 2.8 MD Interval (ms): 140 AR Interval (ms): 210 VA Conduction: Mode Switch Events: N/A % of time: -ALCOHOLISM WORKER: 0.6 AP-ALCOHOLISM WORKER: 1.3 -VS: 23.9 AP-VS: 74.2 ALCOHOLISM WORKER: Magnetic Rate: 85 LINDA: 65 LEAH: [...] to the emerge ncy department at [facility] in [place], [place]. EKG showed normal sinus rhythm with [...] will d iscuss this option with process specialist in [place]. 7. Followup in 2-4 weeks. Portions of this report were transcribed using voice recognition software. Every effort wa s made to ensure accuracy; however, inadvertent computerized upper and bottom lacer hand errors may be pre sent. documented in [...] | | | | | | [place] [address] | | | | | | [phone] | | | | | | | | +--------+ + + + + | 11/20/ | Implant | Cardiology | Daljit Singletary, | Remote Device | | 2019 | Monitor | | [address] [facility] | Interrogation | | | | | [place], | (Primary Dx); | | | | | [place] [address] | Presence of | | | | | [phone] | permanent cardiac | | | | [...] Performed At | + + + | [facility] | [place] | | Department [address] | [facility] | | [ rep ct street[address]] [ rep ct [facility] | | st zip] Signed | - IMAGING | | | | | Patient Name: MOE GAY | | | Physician: MIGUELINA : 1960 Age: 52 Sex: M Unit | | | #: [id number] Exam Date: 12/30/12 Location: | | | IMG Report #: [id number] Page: | | | %(RAD)RES..mtdd.print.filter("pg") of %(RAD) | | | RES..mtdd.print.filter("tpg") | | | | | | Accession Number: [id number] | | | E C H O C A R D I O G R A P H Y R E P O R T | | | HEIGHT: 76" WEIGHT: 270# | | | AIRBRUSH PAINTER: JAMEEL REFERRING DR: TIMMY READING DR: | [...] | | | Transcribed Date/Time: 12/30/2012 16:34 Lithographic Artist: | | | <<Signature on File>> | | | Daljit | | | MD Gemini [facility] FASE01/02/13 0955 <Electronically signed by | | | Daljit Singletary MD, [facility], FACP, FASE, FASNC> Rashadong | | | MD CLEOPATRA Singletary FASE 12/30/12 1608 Lithographic Artist: Jessica | | | Lfggpnddygegv85/08/13 1634 MD ROSEMARY Newby | | | FASE | | + + + + + + + + | Performing | Address | City/[facility] | Phone Number | | Organization | | | | + + + + + | [facility] | [address] | [place] | [phone] | | [facility] | | [address] | | | - IMAGING | | | | + + + + + documented in this encounter Visit Diagnoses + + | Diagnosis | + + | Palpitations - Primary | + + | PVC (premature ventricular contraction) Other premature beats | + + documented in this encounter
--- OUTSIDE RECORDS SUMMARY | ~2019-10-27 | XMS | Encounter Summary ---
Demographics + + + | Address | [address] | | | [place] [address] | + + + | Home Phone [...] + +------+ + | Care Risk Control Representative Name | Role | Phone | + +------+ + PCP | Unavailable | + +------+ + Encounter Details +--------+ + + + + | Date | Type | Department | Care Team | Description | +--------+ + + + + | 09/12/ | Hospital | [facility] | | | | 1993 | Encounter | [facility] EMERGENCY | | | | | | CENTER [address] | | | | | | [place] | | | | | | [address] | | | | | | [phone] | | | +--------+ + + + [...] | | | | | | [place] [address] | | | | | | [phone] | | | | | | | | +--------+ + + + + | 11/20/ | Implant | Cardiology | Daljit Singletary, | Remote Device | | 2018 | Monitor | | [address] [facility] | Interrogation | | | | | [place], | (Primary Dx); | | | | | [place] [address] | Presence of | | | | | [phone] | permanent cardiac | | | | [...]
--- OUTSIDE RECORDS SUMMARY | ~2019-10-27 | XMS | Encounter Summary ---
Demographics + + + | Address | [address] | | | [place] [address] | + + + | Home Phone [...] Providers + +------+ + | Care Envelope Stamping Machine Operator Name | Role | Phone | + +------+ + | Michael Amanda DO | PCP | | + +------+ + Encounter Details +--------+ + + + + | Date | Type | Department | Care Team | Description | +--------+ + + + + | 05/11/ | Hospital | [facility] | Conversion | Lumbago; | | 2013 | Encounter | [facility]ICAL [facility]ENTER | Transaction, | Postlaminectomy | | | | CLINICAL DECISION | Provider Unknown | syndrome, cervical | | | | [address] | | region; Cervicalgia | | | | [place], [place] | (Fax) | | | | | [address] | Cesar, | | | | | [phone] | MD Gamaliel | | +--------+ + [...] + + + +---------+ + + | [place]-3 Fatty | CAPS, one capsule by | [...] of Service: 05/11/14 150 Status: Signed Adult Probation Officer: Meliza Macario RN (Registered Nurse) Pt discharged [...] of Service: 05/11/14 142 Status: Signed Adult Probation Officer: Heike Mckeon RN (Registered Nurse) Called doctor [...] | | | | | | [place], | | | | | | [place] [address] | | | | | | [phone] | | | | | | | | +--------+ + + + + | 11/20/ | Implant | Cardiology | Daljit Singletary, | Remote Device | | 2018 | Monitor | | MD Sim [facility] | Interrogation | | | | | [place], | (Primary Dx); | | | | | [place] [address] | Presence of | | | | | [phone] | permanent cardiac | | | | [...] | | | intrathecal use. See the bass viol repairer examination for details of the | | | injection. Bone algorithm noncontrast technique with reformatted | | | sagittal and coronal images. Prior study for review : CT discogram | | | from 2004 was used to orient this examination given the transitional | | | anatomy of the lumbosacral junction FINDINGS: Coal Pulverizing Operator is notable | | | for [...] for intrathecal use. See | | the bass viol repairer examination for details of the injection. Bone algorithm noncontrast | | technique with reformatted sagittal and coronal images. Prior study for review : CT | | discogram from 2004 was used to orient this examination given the transitional anatomy | | of the lumbosacral junction FINDINGS: Coal Pulverizing Operator is notable for a pacing system. [...]
--- OUTSIDE RECORDS SUMMARY | ~2019-10-27 | XMS | Encounter Summary ---
Demographics + + + | Address | [address] | | | [place] [address] | + + + | Home Phone [...] Providers + +------+ + | Care Inspector Metal Fabricating Name | Role | Phone | + [...] + + | 04/10/ | Telephone | [facility] | Matthew Uriarte | Surgery Appointment | | 2019 | | [address] | MD Tawanna [address] | | | | | [place], [place] | [place], [place] | | | | | [address] | [address] | | | | | [phone] | | | +--------+ + + + [...] | | | | | | [place] [address] | | | | | | [phone] | | | | | | | | +--------+ + + + + | 11/20/ | Implant | Cardiology | Daljit Singletary, | Remote Device | | 2018 | Monitor | | MD [address] | Interrogation | | | | | [place], | (Primary Dx); | | | | | [place] [address] | Presence of | | | | | [phone] | permanent cardiac | | | | [...]
--- OUTSIDE RECORDS SUMMARY | ~2019-10-27 | XMS | Encounter Summary ---
Demographics + + + | Address | [address] | | | [place] [address] | + + + | Home Phone [...] Providers + +------+ + | Care Supervisor Central Supply Name | Role | Phone | + [...] Eva R[place] | | | | | [place], [place] | [address] | | | | | [address] | [place] [address] | | | | | [phone] | [phone] | | | | | | | [...] W | | | | | | [place], | | | | | | [place] [address] | | | | | | [phone] | | | | | | | | +--------+ + + + + | 11/20/ | Implant | Cardiology | Daljit Singletary, | Remote Device | | 2018 | Monitor | | [address] | Interrogation | | | | | [place], | (Primary Dx); | | | | | [place] [address] | Presence of | | | | | [phone] | permanent cardiac | | | | [...]
--- OUTSIDE RECORDS SUMMARY | ~2019-10-27 | XMS | Encounter Summary ---
Demographics + + + | Address | [address] | | | [place] [address] | + + + | Home Phone [...] + + | 12/29/ | Office | [facility] | Silvia, | Ascending thoracic | | 2017 | Visit | CARDIOLOGY [address] | [address] | aortic aneurysm | | | | [place], | [place], | (HCC) (Primary Dx); | | | | [place] [address] | [place] [address] | Coronary artery | | | | [phone] | [phone] | disease involving | | | | | | [place] coronary | | | | | | artery of [place] | | | | | | [...] of non-critical coronary artery d isease involving [place] coronary artery of [place] heart without angina pectoris, essential h [...] start Losartan 25 mg once every day, [facility] blood pressure log, and follow up in 3 months. Since that time, he went to the ER in [facility] with chest pain at [...] Preventative health care Coronary artery disease involving [place] coronary artery of [place] heart without angina pectoris Cannabis abuse, [...] 3RD DOSE, CALL 911 100 tablet 3 [place]-3 Fatty Acids (SALMON OIL-1000 PO) CAPS, one capsule by mouth daily twice daily ONE TOUCH DELICA LANCETS [facility] Check glucose as needed for hypoglycemia 100 [...] was found Confirmed by SYDNI SINGLETARY MD ([id number]) on 06/23/2016 2:08:15 PM LAB RESULTS reviewed during visit today primarily from [facility]: LIPID Lab Results Component Value Date [...] PLTEX 129* 05/12/2016 I reviewed records from [facility] for office visit on 09/01/2016 which is [...] He is in class I of the [place] 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 On physical examination there are no signs of fl uid overload. 2. Non-critical Coronary artery disease involving [place] coronary a rtery of [place] heart without angina pectoris: A. Normal exercise [...] to go back in 3 days to [place] for an attempt of ablation under general [...] is a normal stable device function. Estimated [employer]i ng battery longevity is 5 years.. 5. [...] this chart may have been created with [employer] voice recognition software. Occasi onal wrong-word or [...] | | | | | | [place], | | | | | | [place] [address] | | | | | | [phone] | | | | | | | | +--------+ + + + + | 11/20/ | Implant | Cardiology | Sydni Singletary, | Remote Device | | 2019 | Monitor | | MD [address] | Interrogation | | | | | [place], | (Primary Dx); | | | | | [place] [address] | Presence of | | | | | [phone] | permanent cardiac | | | | [...] + + | Coronary artery disease involving [place] coronary artery of [place] heart without | | angina pectoris | + + | Essential hypertension with goal blood pressure less than 130/80 | + + | Hyperlipidemia, mixed Mixed hyperlipidemia | + + documented in this encounter
--- OUTSIDE RECORDS SUMMARY | ~2019-10-27 | XMS | Encounter Summary ---
Demographics + + + | Address | [address] | | | [place] [address] | + + + | Home Phone [...] Team Providers + +------+ + | Care Histotechnician Name | Role | Phone | + [...] + + | 01/03/ | Telephone | [facility] | Emmanuel Daniel MD | Results, Pathology | | 2018 | | GASTROENTEROLOGY | [address] [place] | (egd,colon) | | | | [address] [place] | [address] [place], [place] | | | | | [address] [place], [place] | [address] | | | | | [address] | | | | | | [phone] | | | +--------+ + + + [...] W | | | | | | [place], | | | | | | [place] [address] | | | | | | [phone] | | | | | | | | +--------+ + + + + | 11/20/ | Implant | Cardiology | Daljit Singletary, | Remote Device | | 2018 | Monitor | | MD [address] [place] [address] | Interrogation | | | | | [place], | (Primary Dx); | | | | | [place] [address] | Presence of | | | | | [phone] | permanent cardiac | | | | [...]
--- OUTSIDE RECORDS SUMMARY | ~2019-10-27 | XMS | Encounter Summary ---
Demographics + + + | Address | [address] | | | [place] [address] | + + + | Home Phone [...] Providers + +------+ + | Care Newspaper Photojournalist Name | Role | Phone | + [...] | | PVCs | [place] | [address] | | | | | Procedures | [address] | [address] | | | | | [place] OFFICE | [place] | [place] | | | | | CONSULTATION | [place], | [address] Phone: | | | | | NEW/ESTAB | [place] | [phone] | | | | | PATIENT 40 | [address] | Fax: | | | | | MIN | Phone: | [phone] | | | | | | [phone] | | | | | | | Fax: | | | | | | | [phone] | | +--------+--------+ + + + + Encounter Details +--------+---------+ + + + | Date | Type | Department | Care Team | Description | +--------+---------+ + + + | 11/30/ | Office | [facility] | Jay Gambino MD | Symptomatic PVCs | | 2015 | Visit | [facility] [place] | [address] | (Primary Dx) | | | | HI4 [address] | [address] [place], | | | | | [facility] [address] [place] | [place] [address] | | | | | [address] | [phone] | | | | | [phone] | | | +--------+---------+ + + + [...] Gambino MD - 11/30/2014 5:37 PM PST [facility] [address] [place] [address] Patient Name: Moe Sanchez Date: 1960 Date [...] luz marcos as needed for Chest pain. 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 Should you have any questions or concerns, [...] W | | | | | | [place], | | | | | | [place] [address] | | | | | | [phone] | | | | | | | | +--------+ + + + + | 11/20/ | Implant | Cardiology | Daljit Singletary, | Remote Device | | 2018 | Monitor | | MD [address] [place] [address] | Interrogation | | | | | [place], | (Primary Dx); | | | | | [place] [address] | Presence of | | | | | [phone] | permanent cardiac | | | | [...]
--- OUTSIDE RECORDS SUMMARY | ~2019-10-27 | XMS | Encounter Summary ---
Demographics + + + | Address | [address] | | | [place] [address] | + + + | Home Phone [...] Providers + +------+ + | Care Clinical Trials Assistant Name | Role | Phone | [...] Show | | 2012 | | MEDICINE PRAY | DO [address] | | | | | [address] | [place] | | | | | [place] | [address] | | | | | [address] | | | | | | [phone] | | | +--------+ + + + [...] | | | | | | [place] [address] | | | | | | [phone] | | | | | | | | +--------+ + + + + | 11/20/ | Implant | Cardiology | Daljit Singletary, | Remote Device | | 2018 | Monitor | | MD [address] | Interrogation | | | | | [place], | (Primary Dx); | | | | | [place] [address] | Presence of | | | | | [phone] | permanent cardiac | | | | [...]
--- OUTSIDE RECORDS SUMMARY | ~2019-10-27 | XMS | Encounter Summary ---
Demographics + + + | Address | [address] | | | [place] [address] | + + + | Home Phone [...] Providers + +------+ + | Care Tank Washer Name | Role | Phone | [...] 2017 | | CARDIOLOGY [address] | CODING TECHNICIAN [address] | | | | | [place], | [place], [place] | | | | | [place] [address] | [address] | | | | | [phone] | | | +--------+--------+ + + + [...] W | | | | | | [place], | | | | | | [place] [address] | | | | | | [phone] | | | | | | | | +--------+ + + + + | 11/20/ | Implant | Cardiology | Daljit Singletary, | Remote Device | | 2018 | Monitor | | [address] | Interrogation | | | | | [place], | (Primary Dx); | | | | | [place] [address] | Presence of | | | | | [phone] | permanent cardiac | | | | [...]
--- OUTSIDE RECORDS SUMMARY | ~2019-10-27 | XMS | Encounter Summary ---
Demographics + + + | Address | [address] | | | [place] [address] | + + + | Home Phone [...] Team Providers + +------+ + | Care Leadership Program Internship Name | Role | Phone | + +------+ + | Michael Amanda DO | PCP | | + +------+ + Encounter Details +--------+ + + + + | Date | Type | Department | Care Team | Description | +--------+ + + + + | 09/22/ | Hospital | [facility] | Bahamn Gant MD | | | 2012 | Encounter | MED CTR XRAY [address] | [address] [place] | | | | | [place] | [address] [place], | | | | | [place] [address] | [place] [address] | | | | | [phone] | [phone] | | | | | | | [...] + + + +---------+ + + | [place]-3 Fatty | CAPS, one capsule by | [...] | | | | | | [place] [address] | | | | | | [phone] | | | | | | | | +--------+ + + + + | 11/20/ | Implant | Cardiology | Daljit Singletary, | Remote Device | | 2019 | Monitor | | MD [address] | Interrogation | | | | | [place], | (Primary Dx); | | | | | [place] [address] | Presence of | | | | | [phone] | permanent cardiac | | | | [...]
--- OUTSIDE RECORDS SUMMARY | ~2019-10-27 | XMS | Encounter Summary ---
Demographics + + + | Address | [address] | | | [place] [address] | + + + | Home Phone [...] Team Providers + +------+ + | Care Grapple Skidder Operator Name | Role | Phone | [...] W | reprogramming/check | | | | [place], | [place] [address] [place] | DO NOT DELETE | | | | [place] [address] | [place] [address] | (Primary Dx); | | | | [phone] | [phone] | Pacemaker - | | | | [...] | | | | | | [place] [address] | | | | | | [phone] | | | | | | | | +--------+ + + + + | 11/20/ | Implant | Cardiology | Daljit Singletary, | Remote Device | | 2018 | Monitor | | MD [address] | Interrogation | | | | | [place], | (Primary Dx); | | | | | [place] [address] | Presence of | | | | | [phone] | permanent cardiac | | | | [...]
--- OUTSIDE RECORDS SUMMARY | ~2019-10-27 | XMS | Encounter Summary ---
Demographics + + + | Address | [address] | | | [place] [address] | + + + | Home Phone [...] Team Providers + +------+ + | Care Parts Interpreter Name | Role | Phone | [...] | CARDIOLOGY [address] | [address] | (Primary Dx); | | | | [place], | [place], | Tachycardia; | | | | [place] [address] | [place] [address] | Coronary artery | | | | [phone] | [phone] | disease involving | | | | | | twenty-nine palms coronary | | | | | | artery of twenty-nine palms | | | | | | heart [...] W | | | | | | [place], | | | | | | [place] [address] | | | | | | [phone] | | | | | | | | +--------+ + + + + | 11/20/ | Implant | Cardiology | Daljit Singletary, | Remote Device | | 2019 | Monitor | | MD [address] [place] | Interrogation | | | | | [place], | (Primary Dx); | | | | | [place] [address] | Presence of | | | | | [phone] | permanent cardiac | | | | [...] involving | | | | | | twenty-nine palms coronary | | | | | | artery of twenty-nine palms | | | | | | heart [...] DALJIT | | | | | | ([id number]) on 06/29/2018 | | | | | [...] + + | Coronary artery disease involving twenty-nine palms coronary artery of twenty-nine palms heart without | | angina pectoris | + + | Hypertension, unspecified type | + + documented in this encounter"
--- OUTSIDE RECORDS SUMMARY | ~2019-10-27 | XMS | Encounter Summary ---
Demographics + + + | Address | [address] | | | [place] [address] | + + + | Home Phone [...] Providers + +------+ + | Care Regulatory Compliance Officer Name | Role | Phone | [...] abdominal | [address] | [address], | | | | | pain | [address] | [address] | | | | | Chronic pain | [address] | [place], | | | | | syndrome | [place], [place] | [place] [address] | | | | | Procedures | [address] | Phone: | | | | | Office Visit | Phone: | [phone] | | | | | | [phone] | Fax: | | | | | | Fax: | [phone] | | | | | | [phone] | | +--------+--------+ + + + + Encounter Details +--------+---------+ + + + | Date | Type | Department | Care Team | Description | +--------+---------+ + + + | 12/02/ | Office | [facility] [place] | Emmanuel Daniel MD | Diarrhea, | | 2018 | Visit | GASTROENTEROLOGY | [address], [place] | unspecified type | | | | [address] [place] | [address] [place], [place] | (Primary Dx); Weight | | | | [address] [place], [place] | [address] | loss, | | | | [address] | | unintentional; | | | | [phone] | | Generalized | | | | [...] | | | | | | [place] [address] | | | | | | [phone] | | | | | | | | +--------+ + + + + | 11/20/ | Implant | Cardiology | Daljit Singletary, | Remote Device | | 2018 | Monitor | | MD [address] | Interrogation | | | | | [place], | (Primary Dx); | | | | | [place] [address] | Presence of | | | | | [phone] | permanent cardiac | | | | [...]
--- OUTSIDE RECORDS SUMMARY | ~2019-10-27 | XMS | Encounter Summary ---
Demographics + + + | Address | [address] | | | [place] [address] | + + + | Home Phone [...] Team Providers + +------+ + | Care Capping Machine Operator Name | Role | Phone | + +------+ + | Kirk French MD | PCP | | + +------+ + Encounter Details +--------+ + + + + | Date | Type | Department | Care Team | Description | +--------+ + + + + | 07/21/ | Hospital | [facility] | Daljit Singletary, | Palpitations; | | 2018 | Encounter | MED CTR NUCLEAR | MD [address] | Presence of | | | | MEDICINE [address] | [address] [place], | permanent cardiac | | | | [place], | [place] [address] | pacemaker; | | | | [address] | [phone] | Sinoatrial node | | | | [phone] | | dysfunction (HCC) | +--------+ + [...] + + + +---------+ + + | [place]-3 Fatty | CAPS, one capsule by | [...] | | | | | | [place] [address] | | | | | | [phone] | | | | | | | | +--------+ + + + + | 11/20/ | Implant | Cardiology | SunshinecherelleDaljit, | Remote Device | | 2019 | Monitor | | [facility] | Interrogation | | | | | [place], | (Primary Dx); | | | | | [place] [address] | Presence of | | | | | [phone] | permanent cardiac | | | | [...] 08/25/2018 13:12 Wireless even study from | [facility] | | 07/21 until 08/22/2018. Baseline EKG [...]
--- OUTSIDE RECORDS SUMMARY | ~2019-10-27 | XMS | Encounter Summary ---
Demographics + + + | Address | [address] | | | [place] [address] | + + + | Home Phone [...] Providers + +------+ + | Care Supervisor Grinding Name | Role | Phone | + [...] [address] | | | | | [place], | [place], | | | | | [place] [address] | [place] [address] | | | | | [phone] | [phone] | | | | | | | [...] W | | | | | | [place], | | | | | | [place] [address] | | | | | | [phone] | | | | | | | | +--------+ + + + + | 11/20/ | Implant | Cardiology | Daljit Singletary, | Remote Device | | 2018 | Monitor | | [address] | Interrogation | | | | | [place], | (Primary Dx); | | | | | [place] [address] | Presence of | | | | | [phone] | permanent cardiac | | | | [...] Comment | + + | [facility] | + + + +---------+ + + [...] Comment | + + | [facility] | + + + +---------+ + + [...]
--- OUTSIDE RECORDS SUMMARY | ~2019-10-27 | XMS | Encounter Summary ---
Demographics + + + | Address | [address] | | | [place] [address] | + + + | Home Phone [...] Providers + +------+ + | Care Wood Router Hand Name | Role | Phone | [...] Show | | 2012 | | MEDICINE [place] | DO [address] | | | | | [address] | [place] | | | | | [place] | [address] | | | | | [address] | | | | | | [phone] | | | +--------+ + + + [...] | | | | | | [place] [address] | | | | | | [phone] | | | | | | | | +--------+ + + + + | 11/20/ | Implant | Cardiology | Daljit Singletary, | Remote Device | | 2018 | Monitor | | MD [address] | Interrogation | | | | | [place], | (Primary Dx); | | | | | [place] [address] | Presence of | | | | | [phone] | permanent cardiac | | | | [...]
--- OUTSIDE RECORDS SUMMARY | ~2019-10-27 | XMS | Encounter Summary ---
Demographics + + + | Address | [address] | | | [place] [address] | + + + | Home Phone [...] Team Providers + +------+ + | Care Tandem Operator Name | Role | Phone | [...] W | DISCLOSURE) | | | | [place], | [place], | | | | | [place] [address] | [place] [address] | | | | | [phone] | [phone] | | | | | | | [...] W | | | | | | [place], | | | | | | [place] [address] | | | | | | [phone] | | | | | | | | +--------+ + + + + | 11/20/ | Implant | Cardiology | Daljit Singletary, | Remote Device | | 2018 | Monitor | | [facility] | Interrogation | | | | | [place], | (Primary Dx); | | | | | [place] [address] | Presence of | | | | | [phone] | permanent cardiac | | | | [...]
--- OUTSIDE RECORDS SUMMARY | ~2019-10-27 | XMS | Encounter Summary ---
Demographics + + + | Address | [address] | | | [place] [address] | + + + | Home Phone [...] Providers + +------+ + | Care Poultry Picking Machine Tender Name | Role | Phone [...] | type | [address] | [address] | | | | | Procedures | ST [place] | [place], | | | | | FUP | [place], [place] | [place] [address] | | | | | | [address] | Phone: | | | | | | Phone: | [phone] | | | | | | [phone] | Fax: | | | | | | Fax: | [phone] | | | | | | [phone] | | +--------+ + + + + [...] | | | | CENTER [address] | [address] [place] | (Primary Dx) | | | | [place], [place] | [place] [address] | | | | | [address] | [phone] | | | | | [phone] | | | +--------+ + + + [...] cannot be sent through Care Everywhere.Angina, Stable (Jordanian)documented in this encounter Medications at Time of [...] | | | | | | [place] [address] | | | | | | [phone] | | | | | | | | +--------+ + + + + | 11/20/ | Implant | Cardiology | Gemini Shaistakenneth, | Remote Device | | 2019 | Monitor | | MD [address] [facility] | Interrogation | | | | | [place], | (Primary Dx); | | | | | [place] [address] | Presence of | | | | | [phone] | permanent cardiac | | | | [...] | | | | ANGELA MARADIAGA MD ([id number]) | | | | | | on [...] | | | | | | [employer] | | | | | [...] | [address] | [place] | [phone] | | [facility] | | [address] | | | - LABORATORY | | [...] [address] | [place] | [phone] | | [facility] | | [address] | | | - LABORATORY | | [...] | | | | | | [employer] | | | | | [...] + | [facility] | [address] | [place] | [phone] | | [facility] | | [address] | | | - LABORATORY | | [...] | | | FILTRATION | mL/min/1.73m2 | [facility] | | | EGYPTIAN | RATE,ESTIMATED | | MEDICAL | | | | mL/min/1.75e5Qtlx than | | CENTER - | | [...] | 9.3 | 8.3 - 10.5 | [facility] | | | | | mg/dL | [facility] | | | | | | MEDICAL | | | | | | CENTER - | | | | | | LABORATORY | | + + + + + + | Albumin | 4.2 | 3.2 - 5.0 g/dL | [facility] | | | | | | [facility] | | | | | [...] | | ine Ratio | | | [facility] | | | | | [...] [address] | [place] | [phone] | | [facility] | | [address] | | | - LABORATORY | | [...] [address] | [place] | [phone] | | [facility] | | [address] | | | - LABORATORY | | [...] | | | | ANGELA MARADIAGA MD ([id number]) | | | | | | on [...]
--- OUTSIDE RECORDS SUMMARY | ~2019-10-27 | XMS | Encounter Summary ---
Demographics + + + | Address | [address] | | | [place] [address] | + + + | Home Phone [...] Providers + +------+ + | Care Industrial Real Estate Agent Name | Role | Phone | [...] | | | | [place] | | [address] Phone: | | | | | CYSTO/URETER | | [phone] | | | | | O | | Fax: | | | | | W/LITHOTRIPS | | [phone] | | | | | Y &INDWELL [...] + + | 04/13/ | Hospital | [facility] | Matthew Uriarte | Preoperative | | 2019 | Encounter | MED CTR OR INTRA OP | Dahl, MD [address] | clearance (Primary | | | | [address] | [place], [place] | Dx); Left ureteral | | | | [place] | [address] | calculus; Kidney | | | | [address] | | stones | | | | [phone] | | | +--------+ + + + [...] Care Everywhere.Kidney Stones, Treating: Ureteroscopic Stone Removal (Tuvaluan)Stents, Ureteral (Tuvaluan)documented in this encounter Medications at Time of [...] + + + +---------+ + + | [place]-3 Fatty | CAPS, one capsule by | [...] | | | | | | | gakona coronary | | | | | | | artery of gakona | | | | | | | [...] W | | | | | | [place], | | | | | | [place] [address] | | | | | | [phone] | | | | | | | | +--------+ + + + + | 11/20/ | Implant | Cardiology | Daljit Singletary, | Remote Device | | 2018 | Monitor | | [address] [facility] | Interrogation | | | | | [place], | (Primary Dx); | | | | | [place] [address] | Presence of | | | | | [phone] | permanent cardiac | | | | [...] [facility] | | | | | | at:[phone]. | | | | + + + [...] + | Performed at: 01 - [facility] [address] | REFERENCE LAB | | [place], [place] [id number] Superintendent Refuse Disposal: Yeny Rios MD, Phone: | ARSH CASTANON | | [phone] | | + + + + + + + + | Performing | Address | City/State/Zipcode | Phone Number | | Organization | | | | + + + + + | REFERENCE LAB | [address] | [place] [address] | [phone] | | [facility] | Drive [...] ST. | [address] | [place] | [phone] | | [facility] | | [address] | | | - LABORATORY | | [...] ST. | [address] | [place] | [phone] | | [facility] | | [address] | | | - LABORATORY | | [...] [address] | [place] | [phone] | | [facility] | | [address] | | | - LABORATORY | | [...] ST. | [address] | [place] | [phone] | | [facility] | | [address] | | | - LABORATORY | | [...] | 0.92 | 0.70 - 1.30 | [facility] | | | | | mg/dL | [facility] | | | | | | MEDICAL | | | | | | CENTER - | | | | | | LABORATORY | | + + + + + + | eGFR if not | >60Comment: GLOMERULAR | >=60 | [facility] | | | | FILTRATION | mL/min/1.73m2 | [facility] | | | [place] | RATE,ESTIMATED | | MEDICAL | | | | mL/min/1.40c0Zobn than | | CENTER - | | [...] [address] | [place] | [phone] | | [facility] | | [address] | | | - LABORATORY | | [...] day), First | | | dose on [facility] 04/13/19 at 1400, | | | Start 8 hours after pre-op dose., | | | Post-op/Phase II | | + +---+ | | | + +---+ | albuterol 2.5 mg/3 mL nebulizer | | | solution 2.5 mg 2.5 mg, | | | Nebulization, ONCE PRN, Wheezing, | | | Starting [facility] 04/13/19 at 0917, | | | For [...] HR < 40, | | | Starting [facility] 04/13/19 at 0917, For | | | [...] | | | | | | | phyboz-vmg-plimx use of at least | | | [...]
--- OUTSIDE RECORDS SUMMARY | ~2019-10-27 | XMS | Encounter Summary ---
Demographics + + + | Address | [address] | | | [place] [address] | + + + | Home Phone [...] Providers + +------+ + | Care Leather Repairer Name | Role | Phone | [...] Refill | | 2012 | | MEDICINE [place] | DO [address] | | | | | [address] | [place] | | | | | [place] | [address] | | | | | [address] | | | | | | [phone] | | | +--------+--------+ + + + [...] | | | | | | [place], | | | | | | [place] [address] | | | | | | [phone] | | | | | | | | +--------+ + + + + | 11/20/ | Implant | Cardiology | Daljit Singletary, | Remote Device | | 2018 | Monitor | | [address] [facility] | Interrogation | | | | | [place], | (Primary Dx); | | | | | [place] [address] | Presence of | | | | | [phone] | permanent cardiac | | | | [...]
--- OUTSIDE RECORDS SUMMARY | ~2019-10-27 | XMS | Clinical Summary ---
Demographics + + + | Address | [address] | | | [place] [address] | + + + | Home Phone | | + + + | Preferred Language | Unknown | + + + | Marital Status | | + + + | Uatsdin Affiliation | 1013 | + + + | Race | Unknown | + + + | Ethnic Group | Unknown | + + + Author + + + | Author | [employer] (Historical as of | | | 07-08-19) | + + + | Organization | [facility] [employer] (Historical as of | | | 07-08-19) [...] Providers + +------+ + | Care Molder Shoulder Pad Name | Role | Phone | + [...] + | AUTO INSURANCE | AUTO | [id number] | | | | | | INSURA | | | | | | | NCE | | | | | | | GENERI | | | | | | | C | | | | | + +--------+ +------+-------+ + | AUTO INSURANCE | AUTO | [id number] | | | | | | INSURA | [id number] | | | | | | NCE | | | | | | | GENERI | | | | | | | C | | | | | + +--------+ +------+-------+ + | MEDICARE | MEDICA | [id number] | | | [address] | | | RE | | | | [place], [place] [address] | | | IP-OP | | | | | + +--------+ +------+-------+ + | [facility] | [employer]UX[place] | [id number] | | | | | | | [...] | Self | [birth year] | Home: | [address] | | | al/Fam | | 9 | [address] | [address] [place], [place] | | | roxanne | | | [address] | [address] | + +--------+ +--------+ + + | AMILCAR GAY | Third | Self | [birth year] | Home: | [address] | | | Libertarian | | 9 | +- | [place], [place] | | | Liabil | | | [address] | [address] | | | ity | | | | | + +--------+ +--------+ + + | AMILCAR GAY | Third | Self | [birth year] | Home: | [address] | | | Libertarian | | 1960 | +- | [place], [place] | | | Liabil | | | [address] | [address] | | | ity | | | | | + +--------+ +--------+ + +
--- OUTSIDE RECORDS SUMMARY | ~2019-10-27 | XMS | Encounter Summary ---
Demographics + + + | Address | [address] | | | [place] [address] | + + + | Home Phone [...] Providers + +------+ + | Care Environmental Conservation Professor Name | Role | Phone | [...] | CARDIOLOGY [address] | [address] [place] | Interrogation | | | | [place], | [place], | (Primary Dx); | | | | [place] [address] | [place] [address] | Presence of | | | | [phone] | [phone] | permanent cardiac | | | | [...] | | | | | | [place] [address] | | | | | | [phone] | | | | | | | | +--------+ + + + + | 11/20/ | Implant | Cardiology | Daljit Singletary, | Remote Device | | 2019 | Monitor | | [address] [place] | Interrogation | | | | | [place], | (Primary Dx); | | | | | [place] [address] | Presence of | | | | | [phone] | permanent cardiac | | | | [...] remote PDF scanned into | | | [employer] for remote interrogation results. Data collected by [...]
--- OUTSIDE RECORDS SUMMARY | ~2019-10-27 | XMS | Encounter Summary ---
Demographics + + + | Address | [address] | | | [place] [address] | + + + | Home Phone [...] Team Providers + +------+ + | Care Processing Technician Name | Role | Phone | [...] | | | DDD | Scotty C, CORROSION CONTROL TECHNICIAN | [facility] | | | | | (degenerativ | [address] | [facility] | | | | | e disc | [facility] | MEDICAL | | | | | disease), | [address] | CENTER [address] | | | | | lumbar | B | [place] | | | | | Chronic | [place], [place] | [place], | | | | | left-sided | [address] | [place] [address] | | | | | low back | Phone: | Phone: | | | | | pain with | [phone] | [phone] | | | | | left-sided | Fax: | Fax: | | | | | sciatica | [phone] | [phone] | | | | | History of [...] | | | DDD | Scotty C, CORROSION CONTROL TECHNICIAN | [address] | | | | | (degenerativ | [address] | [place], | | | | | e disc | [facility] | [place] [address] | | | | | disease), | [address]IVE [address] | Phone: | | | | | lumbar | B | [phone] | | | | | Chronic | [place], [place] | Fax: | | | | | left-sided | [address] | [phone] | | | | | low back | Phone: | | | | | | pain with | [phone] | | | | | | left-sided | Fax: | | | | | | sciatica | [phone] | | | | | | History [...] + + | 07/01/ | Hospital | [facility] | Scotty Galdamez, | DDD (degenerative | | 2018 | Encounter | [facility] [address] | CORROSION CONTROL TECHNICIAN [address] [facility] | disc disease), | | | | [place], | [address] | lumbar; Chronic | | | | [place] [address] | [place] [address] | left-sided low back | | | | [phone] | [phone] | pain with left-sided | | | [...] + + + +---------+ + + | [place]-3 Fatty | CAPS, one capsule by | [...] | | | | | | [place] [address] | | | | | | [phone] | | | | | | | | +--------+ + + + + | 11/20/ | Implant | Cardiology | AnshujohnsoncherelleShaistapawanotto, | Remote Device | | 2019 | Monitor | | [facility] | Interrogation | | | | | [place], | (Primary Dx); | | | | | [place] [address] | Presence of | | | | | [phone] | permanent cardiac | | | | [...]
--- OUTSIDE RECORDS SUMMARY | ~2019-10-27 | XMS | Encounter Summary ---
Demographics + + + | Address | [address] | | | [place] [address] | + + + | Home Phone [...] Providers + +------+ + | Care [place] Dental Lab Technician Name | Role | Phone [...] + | 12/23/ | Telephone | [facility] | Daljit Singletary, | Other (question | | 2015 | | CARDIOLOGY [address] | [address] [place] | about diet | | | | [place], | [place], | medication) | | | | [place] [address] | [place] [address] | | | | | [phone] | [phone] | | | | | | | [...] W | | | | | | [place], | | | | | | [place] [address] | | | | | | [phone] | | | | | | | | +--------+ + + + + | 11/20/ | Implant | Cardiology | Daljit Singletary, | Remote Device | | 2018 | Monitor | | MD [address] [place] | Interrogation | | | | | [place], | (Primary Dx); | | | | | [place] [address] | Presence of | | | | | [phone] | permanent cardiac | | | | [...]
--- OUTSIDE RECORDS SUMMARY | ~2019-10-27 | XMS | Encounter Summary ---
Demographics + + + | Address | [address] | | | [place] [address] | + + + | Home Phone [...] Team Providers + +------+ + | Care Gate Watch Name | Role | Phone | + [...] | CARDIOLOGY [address] | MD [address] [place] | | | | | [place], | [place], | | | | | [place] [address] | [place] [address] | | | | | [phone] | [phone] | | | | | | | [...] | | | | | | [place] [address] | | | | | | [phone] | | | | | | | | +--------+ + + + + | 11/20/ | Implant | Cardiology | Daljit Singletary, | Remote Device | | 2018 | Monitor | | [address] [facility] | Interrogation | | | | | [place], | (Primary Dx); | | | | | [place] [address] | Presence of | | | | | [phone] | permanent cardiac | | | | [...]
--- OUTSIDE RECORDS SUMMARY | ~2019-10-27 | XMS | Encounter Summary ---
Demographics + + + | Address | [address] | | | [place] [address] | + + + | Home Phone [...] Providers + +------+ + | Care Business Unit Leader Name | Role | Phone | [...] + | 10/04/ | Telephone | [facility] | Daljit Singletary, | Other (Records sent) | | 2012 | | CARDIOLOGY [address] | MD [address] [place] | | | | | [place], | [place], | | | | | [place] [address] | [place] [address] | | | | | [phone] | | | | | | | [...] W | | | | | | [place], | | | | | | [place] [address] | | | | | | [phone] | | | | | | | | +--------+ + + + + | 11/20/ | Implant | Cardiology | Daljit Singletary, | Remote Device | | 2018 | Monitor | | [address] [facility] | Interrogation | | | | | [place], | (Primary Dx); | | | | | [place] [address] | Presence of | | | | | [phone] | permanent cardiac | | | | [...]
--- OUTSIDE RECORDS SUMMARY | ~2019-10-27 | XMS | Encounter Summary ---
Demographics + + + | Address | [address] | | | [place] [address] | + + + | Home Phone [...] Providers + +------+ + | Care Desktop Analyst Name | Role | Phone | [...] Provider Unknown | | | | | [place], [place] | [phone] | | | | | [address] | | | | | | [phone] | | | +--------+ + + + [...] | | | | | | | #[id number], exp 07/2016 | | | | | [...] | | | | | | [place] [address] | | | | | | [phone] | | | | | | | | +--------+ + + + + | 11/20/ | Implant | Cardiology | Daljit Singletary, | Remote Device | | 2018 | Monitor | | MD [address] [place] | Interrogation | | | | | [facility], | (Primary Dx); | | | | | [place] [address] | Presence of | | | | | [phone] | permanent cardiac | | | | [...]
--- OUTSIDE RECORDS SUMMARY | ~2019-10-27 | XMS | Encounter Summary ---
Demographics + + + | Address | [address] | | | [place] [address] | + + + | Home Phone [...] Providers + +------+ + | Care Receiving Operator Name | Role | Phone | [...] | 01/04/ | Telephone | [facility] | Emmanuel Daniel MD | Other | | 2019 | | GASTROENTEROLOGY | [address], [place] | | | | | [address] [place] | [address] [place], [place] | | | | | [address] [place], [place] | [address] | | | | | [address] | | | | | | [phone] | | | +--------+ + + + [...] | | | | | | [place] [address] | | | | | | [phone] | | | | | | | | +--------+ + + + + | 11/20/ | Implant | Cardiology | Daljit Singletary, | Remote Device | | 2018 | Monitor | | MD [address] [place] | Interrogation | | | | | [place], | (Primary Dx); | | | | | [place] [address] | Presence of | | | | | [phone] | permanent cardiac | | | | [...]
--- OUTSIDE RECORDS SUMMARY | ~2019-10-27 | XMS | Clinical Summary ---
Demographics + + + | Address | [address] [place] [address] | | | [place] [address] | + + + | Home Phone [...] [place] | | | | | [address] | | + + + + + Care Team Providers + +------+ + | Care Nutrition Instructor Name | Role | Phone | + +------+ + | Darion Holden DO | PCP | | + +------+ + Source Comments IVETTE is fully live on both EpicCare Ambulatory and EpicCare InPatient.[facility] Allergies + + + + [...] | | | | | | | [address] | | + +--------+ +--------+ + +--------+ | [employer] | AARP | xxxxxxxxxx | 11/22/19 | [phone] | [address] | Indemn | | RETIRED PEOPLE | | | 10-Pre | 9 | [id number] | ity | | | | | sent | | [place] | | | | | | | | [address] | | + +--------+ +--------+ + +--------+ + +--------+ +--------+ + + | Guarantor Name | Accoun | Relation to | Date | Phone | Billing Address | | | t Type | Patient | of | | | | | | | | | | + +--------+ +--------+ + + | Moe Sanchez | Person | Self | [birth year] | [address] | | | cristo/Per | | 1960 | [phone] | [place] | | | roxanne | | | [address] (Home) | [address] | + +--------+ +--------+ + + Advance Directives + + + + + | Type | Date Recorded | Patient | Explanation | | | | Food Preparation Worker | | + + + + + | Advance | | | | | Directives and | | | | | Living Will | | | | + + + + + | Power of | | | | | Cellular Biologist | | | | + + + + +
--- OUTSIDE RECORDS SUMMARY | ~2019-10-27 | XMS | Encounter Summary ---
Demographics + + + | Address | [address] | | | [place] [address] | + + + | Home Phone [...] Team Providers + +------+ + | Care Radial Router Operator Name | Role | Phone | [...] Eva [place] | | | | | [place], [place] | [address] | | | | | [address] | [place] [address] | | | | | [phone] | [phone] | | | | | | | [...] W | | | | | | [place], | | | | | | [place] [address] | | | | | | [phone] | | | | | | | | +--------+ + + + + | 11/20/ | Implant | Cardiology | Daljit Singletary, | Remote Device | | 2018 | Monitor | | [address] [place] | Interrogation | | | | | [place], | (Primary Dx); | | | | | [place] [address] | Presence of | | | | | [phone] | permanent cardiac | | | | [...]
--- OUTSIDE RECORDS SUMMARY | ~2019-10-27 | XMS | Encounter Summary ---
Demographics + + + | Address | [address] | | | [place] [address] | + + + | Home Phone [...] Providers + +------+ + | Care Client Hr Manager Name | Role | Phone [...] [place] | | | | | | [address] | | | | | | [phone] | | | | | | | [...] | | | | | | [place] [address] | | | | | | [phone] | | | | | | | | +--------+ + + + + | 11/20/ | Implant | Cardiology | Daljit Singletary, | Remote Device | | 2018 | Monitor | | [address] [facility] | Interrogation | | | | | [place], | (Primary Dx); | | | | | [place] [address] | Presence of | | | | | [phone] | permanent cardiac | | | | [...]
--- OUTSIDE RECORDS SUMMARY | ~2019-10-27 | XMS | Encounter Summary ---
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 1960 Admit date: 02/27/2014 Discharge [...] - 99 mg/dL Final Testing performed at [address] [address] BUN Date Value Range Status 02/28/2014 15 8 - 25 mg/dL Final Testing performed at [address] [address] CREATININE Date Value Range Status 02/28/2014 0.74 0.70 - 1.30 mg/dL Final Testing performed at [address] [address] BUN/CREAT Date Value Range Status 02/28/2014 20 Final Testing performed at [address] [address] TOTAL PROTEIN Date Value Range Status 02/28/2014 6.1* 6.3 - 8.2 g/dL Final Testing performed at [address] [address] GLOBULIN Date Value Range Status 02/28/2014 2.1 1.3 - 4.9 g/dL Final Testing performed at [address] [address] TBIL Date Value Range Status 02/28/2014 1.4 0.1 - 1.5 mg/dL Final Testing performed at [address] [address] ALT Date Value Range Status 02/28/2014 27 10 - 65 U/L Final Testing performed at [address] [address] AST Date Value Range Status 02/28/2014 31 10 - 45 U/L Final Testing performed at [address] [address] SODIUM Date Value Range Status 02/28/2014 138 135 - 143 mmol/L Final Testing performed at [facility], [address] [place] [address] POTASSIUM Date Value Range Status 02/28/2014 3.4* 3.5 - 4.9 mmol/L Final Testing performed at [facility], [address] [place] [address] CHLORIDE Date Value Range Status 02/28/2014 108 99 - 109 mmol/L Final Testing performed at [address] [address] CO2 Date Value Range Status 02/28/2014 21* 23 - 32 mmol/L Final Testing performed at [facility], [address] [place] [address] ANION GAP AGAP Date Value Range Status 02/28/2014 12 5 - 20 mmol/L Final Testing performed at [facility], [address] [place] [address] Xr Chest Pa And Lateral 02/27/2014 PINA [...] 3-D reconstructi ons were performed using the [employer] 3-D software and sent to PACS. Oral Contrast: None I V contrast: 100 mL IsoVue 370 COMPARISON: None. FINDINGS: CHEST: The telecommunications repairer view shows a p acemaker via left [...] pacemaker, who [facility] complaining of chest pain which started [...] catheterization recently done by Dr. Singletary in [place] in December 2013 at [facility] which showed minimal occlusive disease. One artery was 25% and another was 15%, per patient. I requested official cardiac catheterization report from [place] and still waiting for it to come. 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 You may get these medications from any pharmacy. amLODIPine 5 MG tablet pantoprazole 40 MG tablet Activity: activity as tolerated Diet: cardiac diet Wound Care: not applicable There are no Patient Instructions on file for this visit. Per Pt None Chaka Ortiz MD [address] [facility] [id number] In 1 week Ariel Pulido MD [address] [facility] [id number] In 1 week Daljit Singletary MD [address] [address] [facility] [address] In 1 week Signed: DEV MONTANO 02/28/2014 10:45 AM Addendum:ADDENDUM I just received a cardiac catheterization report from [facility], [place], which was done on December 25, 2013. [...] 02/28/141211 Date of Service: 02/28/141210 Status: Signed Photographic Processor: Bijal Sosa RN (Registered Nurse) Discharge instructions [...] 02/28/1411 Date of Service: 02/28/1411 Status: Signed Photographic Processor: Mary Wetzel RPH (Pharmacist) Clinical Pharmacy Note: [...] PharmD 02/28/2014 12:11 AM Electronically signed by [facility], Provider at 07/17/2019 6:37 PM PDTdocume pfeiffer in this encounter Plan of Treatment +--------+ + + + + | Date | Type | Specialty | Care Team | Description | +--------+ + + + + | 11/09/ | Office | Cardiology | Silvia | | | 2018 | Visit | | [address] | | | | | | [place], | | | | | | [place] [address] | | | | | | [phone] | | | | | | | | +--------+ + + + + | 11/20/ | Implant | Cardiology | Daljit Singletary, | Remote Device | | 2018 | Monitor | | MD [place] | Interrogation | | | | | [facility], | (Primary Dx); | | | | | [place] [address] | Presence of | | | | | [phone] | permanent cardiac | | | | [...] | LAB | | | | [address];[place], [place] | | | | | | [address] | | | | + + + [...] CITY;[address] | | | | | | [facility];[place], [place] | | | | | | [address] | | | | + + + [...] | | | | | [place] [address] | | | | + + + + + + | RED CELL | 4.68Comment: Testing | 4.20 - 5.70 | EXTERNAL | | | COUNT | performed at [facility], [address] | M/uL | LAB | | | | [address], | | | | | | [place] [address] | | | | + + + + + + | Hgb | 15.3Comment: Testing | 13.2 - 17.0 | EXTERNAL | | | | performed at [facility], [address] | g/dL | LAB | | | | [address], | | | | | | [place] [address] | | | | + + + + + + | Hematocrit, | 44.2Comment: Testing | 39.0 - 50.0 % | EXTERNAL | | | POC | performed at [facility], [address] | | LAB | | | | [address], | | | | | | [place] [address] | | | | + + + + + + | MCV | 94.5Comment: Testing | 80.0 - 100.0 fl | EXTERNAL | | | | performed at [facility], [address] | | LAB | | | | [address], | | | | | | [place] [address] | | | | + + + + + + | MCH | 32.6Comment: Testing | 27.0 - 34.0 pg | EXTERNAL | | | | performed at [facility], [address] | | LAB | | | | [address], | | | | | | [place] [address] | | | | + + + + + + | MCHC | 34.5Comment: Testing | 32.0 - 35.5 | EXTERNAL | | | | performed at [facility], [address] | g/dL | LAB | | | | [address], | | | | | | [place] [address] | | | | + + + + + + | RDW-CV | 45.5Comment: Testing | 37 - 53 fl | EXTERNAL | | | | performed at [facility], [address] | | LAB | | | | [address], | | | | | | [place] [address] | | | | + + + + + + | Platelet | 156Comment: Testing | 150 - 400 K/uL | EXTERNAL | | | Count | performed at [facility], [address] | | LAB | | | Plasma | [address], | | | | | | [place] [address] | | | | + + + + + + | MPV | 8.8Comment: Testing | fl | EXTERNAL | | | | performed at [facility], [address] | | LAB | | | | [address], | | | | | | [place] [address] | | | | + + + + + + | Differentia | AUTOMATEDComment: | | EXTERNAL | | | l Type | Testing performed at | | LAB | | | | [facility], [address] | | | | | | [place] | | | | | | [address] | | | | + + + [...] | | | | | [place] [address] | | | | + + + + + + | % Monocytes | 9.2Comment: Testing | % | EXTERNAL | | | | performed at [facility], [address] | | LAB | | | | [address], | | | | | | [place] [address] | | | | + + + + + + | % | 0.9Comment: Testing | % | EXTERNAL | | | Eosinophils | performed at [facility], [address] | | LAB | | | | [address], | | | | | | [place] [address] | | | | + + + + + + | % Basophils | 0.4Comment: Testing | % | EXTERNAL | | | | performed at [facility], [address] | | LAB | | | | [address], | | | | | | [place] [address] | | | | + + + + + + | Absolute | 3.9Comment: Testing | 1.9 - 7.4 K/uL | EXTERNAL | | | Segmented | performed at [facility], [address] | | LAB | | | Neutrophils | [address], | | | | | | [place] [address] | | | | + + + + + + | Absolute | 2.1Comment: Testing | 1.0 - 3.9 K/uL | EXTERNAL | | | Lymphocytes | performed at [facility], [address] | | LAB | | | | [address], | | | | | | [place] [address] | | | | + + + + + + | Absolute | 0.6Comment: Testing | 0 - 0.8 K/uL | EXTERNAL | | | Monocytes | performed at [facility], [address] | | LAB | | | | [address], | | | | | | [place] [address] | | | | + + + + + + | Absolute | 0.1Comment: Testing | 0 - 0.5 K/uL | EXTERNAL | | | Eosinophils | performed at [facility], [address] | | LAB | | | | [address], | | | | | | [place] [address] | | | | + + + + + + | Absolute | 0.0Comment: Testing | 0 - 0.1 K/uL | EXTERNAL | | | Basophils | performed at [facility], [address] | | LAB | | [...] | | | | | [place] [address] | | | | + + + [...] EXTERNAL | | | | performed at [facility], [address] | | LAB | | | | [address], | | | | | | [place] [address] | | | | + + + [...] [place] | | | | | | [address] | | | | + + + [...] | | | | | [place] [address] | | | | + + + + + + | Triglycerid | 37Comment: Testing | mg/dL | EXTERNAL | | | es | performed at [facility], [address] | | LAB | | | | [address], | | | | | | [place] [address] | | | | + + + + + + | HDL | 35 (L)Comment: Testing | mg/dL | EXTERNAL | | | | performed at [facility], [address] | | LAB | | | | [address], | | | | | | [place] [address] | | | | + + + + + + | LDL | 67Comment: Testing | mg/dL | EXTERNAL | | | Cholesterol | performed at [facility], [address] | | LAB | | | , | [address], | | | | | Calculated, | [place] [address] | | | | | External | [...] | | | | | [place] [address] | | | | + + + + + + | K | 3.4 (L)Comment: Testing | 3.5 - 4.9 | EXTERNAL | | | | performed at [facility], [address] | mmol/L | LAB | | | | [address], | | | | | | [place] [address] | | | | + + + + + + | Cl | 108Comment: Testing | 99 - 109 mmol/L | EXTERNAL | | | | performed at [facility], [address] | | LAB | | | | [address], | | | | | | [place] [address] | | | | + + + + + + | CO2 | 21 (L)Comment: Testing | 23 - 32 mmol/L | EXTERNAL | | | | performed at [facility], [address] | | LAB | | | | [address], | | | | | | [place] [address] | | | | + + + + + + | Anion Gap | 12Comment: Testing | 5 - 20 mmol/L | EXTERNAL | | | | performed at [facility], [address] | | LAB | | | | [address], | | | | | | [place] [address] | | | | + + + + + + | Glucose, | 107 (H)Comment: Testing | 65 - 99 mg/dL | EXTERNAL | | | Fasting | performed at [facility], [address] | | LAB | | | | [address], | | | | | | [place] [address] | | | | + + + + + + | BUN | 15Comment: Testing | 8 - 25 mg/dL | EXTERNAL | | | | performed at [facility], [address] | | LAB | | | | [address], | | | | | | [place] [address] | | | | + + + + + + | Creatinine | 0.74Comment: Testing | 0.70 - 1.30 | EXTERNAL | | | | performed at [facility], [address] | mg/dL | LAB | | | | [address], | | | | | | [place] [address] | | | | + + + + + + | BUN/Creatin | 20Comment: Testing | | EXTERNAL | | | ine Ratio | performed at [facility], [address] | | LAB | | | | [address], | | | | | | [place] [address] | | | | + + + + + + | Calcium | 8.9Comment: Testing | 8.5 - 10.2 | EXTERNAL | | | | performed at [facility], [address] | mg/dL | LAB | | | | [address], | | | | | | [place] [address] | | | | + + + + + + | Protein, | 6.1 (L)Comment: Testing | 6.3 - 8.2 g/dL | EXTERNAL | | | Total | performed at [facility], [address] | | LAB | | | | [address], | | | | | | [place] [address] | | | | + + + + + + | Albumin | 4.0Comment: Testing | 3.6 - 5.0 g/dL | EXTERNAL | | | | performed at [facility], [address] | | LAB | | | [address], | | | | | | [place] [address] | | | | + + + + + + | Globulin | 2.1Comment: Testing | 1.3 - 4.9 g/dL | EXTERNAL | | | | performed at [facility], [address] | | LAB | | | | [address], | | | | | | [place] [address] | | | | + + + + + + | A/G Ratio | 1.9Comment: Testing | 1.0 - 2.4 | EXTERNAL | | | | performed at [facility], [address] | | LAB | | | | [address], | | | | | | [place] [address] | | | | + + + + + + | Bilirubin | 1.4Comment: Testing | 0.1 - 1.5 mg/dL | EXTERNAL | | | Total | performed at [facility], [address] | | LAB | | | | [address], | | | | | | [place] [address] | | | | + + + + + + | ALP, | 46Comment: Testing | 35 - 115 U/L | EXTERNAL | | | External | performed at [facility], [address] | | LAB | | | | [address], | | | | | | [place] [address] | | | | + + + + + + | AST | 31Comment: Testing | 10 - 45 U/L | EXTERNAL | | | | performed at [facility], [address] | | LAB | | | | [address], | | | | | | [place] [address] | | | | + + + + + + | ALT | 27Comment: Testing | 10 - 65 U/L | EXTERNAL | | | | performed at [facility], [address] | | LAB | | | | [address], | | | | | | [place] [address] | | | | + + + [...] | | | | | at [facility], [address] | | | | | | [address], | | | | | | [place] [address] | | | | + + + [...] [facility];[address] | | LAB | | | | [address];[place], [place] | | | | | | [address] | | | | + + + [...] [facility] | | | | | | [facility];[place], [place] | | | | | | [address] | | | | + + + [...] | | | | [facility], [place] | | | | | | [address] | | | | + + + [...] were | | | performed using the [employer] 3-D software and sent to PACS. Oral | | | Contrast: None IV contrast: 100 mL IsoVue 370 COMPARISON: None. | | | FINDINGS: CHEST: The telecommunications repairer view shows a pacemaker via left | [...] reconstructions were performed | | using the [employer] 3-D software and sent to PACS. Oral Contrast: NoneIV contrast: 100 | | mL IsoVue 370 COMPARISON:None. FINDINGS: CHEST: The telecommunications repairer view shows a pacemaker via | | [...] | LAB | | | | [address];[place] | | | | | | [address] | | | | + + + + + -+ | RED CELL | 5.19Comment: Testing | 4.20 - 5.70 | EXTERNAL | | | COUNT | performed at [facility];[address] | M/uL | LAB | | | | [address];[place] | | | | | | [address] | | | | + + + + + -+ | Hgb | 16.8Comment: Testing | 13.2 - 17.0 | EXTERNAL | | | | performed at [facility];[address] | g/dL | LAB | | | | [address];[place] | | | | | | [address] | | | | + + + + + -+ | Hematocrit, | 49.5Comment: Testing | 39.0 - 50.0 % | EXTERNAL | | | POC | performed at [facility];[address] | | LAB | | | | [address];[place] | | | | | | [address] | | | | + + + + + -+ | MCV | 95.4Comment: Testing | 80.0 - 100.0 fl | EXTERNAL | | | | performed at [facility];[address] | | LAB | | | | [address];[place] | | | | | | [address] | | | | + + + + + -+ | MCH | 32.4Comment: Testing | 27.0 - 34.0 pg | EXTERNAL | | | | performed at [facility];[address] | | LAB | | | | [address];[place] | | | | | | [address] | | | | + + + + + -+ | MCHC | 34.0Comment: Testing | 32.0 - 35.5 | EXTERNAL | | | | performed at [facility];[address] | g/dL | LAB | | | | [address];[place] | | | | | | [address] | | | | + + + + + -+ | RDW-CV | 46.8Comment: Testing | 37 - 53 fl | EXTERNAL | | | | performed at [facility];[address] | | LAB | | | | [address];[place] | | | | | | [address] | | | | + + + + + -+ | Platelet | 179Comment: Testing | 150 - 400 K/uL | EXTERNAL | | | Count | performed at [facility];[address] | | LAB | | | Plasma | [address];[place] | | | | | | [address] | | | | + + + + + -+ | MPV | 8.6Comment: Testing | fl | EXTERNAL | | | | performed at [facility];[address] | | LAB | | | | [address];[place] | | | | | | [address] | | | | + + + + + -+ | Differentia | AUTOMATEDComment: | | EXTERNAL | | | l Type | Testing performed at | | LAB | | | | [facility];[address];[place] [address] | | | | + + + + + -+ | % Segmented | 62.4Comment: Testing | % | EXTERNAL | | | | performed at [facility];[address] | | LAB | | | Neutrophils | [address];[place] | | | | | | [address] | | | | + + + + + -+ | % | 26.3Comment: Testing | % | EXTERNAL | | | Lymphocytes | performed at [facility];[address] | | LAB | | | | [address];[place] | | | | | | [address] | | | | + + + + + -+ | % Monocytes | 10.3Comment: Testing | % | EXTERNAL | | | | performed at [facility];[address] | | LAB | | | | [address];[place] | | | | | | [address] | | | | + + + + + -+ | % | 0.5Comment: Testing | % | EXTERNAL | | | Eosinophils | performed at [facility];[address] | | LAB | | | | [address];[place] | | | | | | [address] | | | | + + + + + -+ | % Basophils | 0.5Comment: Testing | % | EXTERNAL | | | | performed at [facility];[address] | | LAB | | | | [address];[place] | | | | | | [address] | | | | + + + + + -+ | Absolute | 6.3Comment: Testing | 1.9 - 7.4 K/uL | EXTERNAL | | | Segmented | performed at [facility];[address] | | LAB | | | Neutrophils | [address];[place] | | | | | | [address] | | | | + + + + + -+ | Absolute | 2.7Comment: Testing | 1.0 - 3.9 K/uL | EXTERNAL | | | Lymphocytes | performed at [facility];[address] | | LAB | | | | [address];[place] | | | | | | [address] | | | | + + + + + -+ | Absolute | 1.0 (H)Comment: Testing | 0 - 0.8 K/uL | EXTERNAL | | | Monocytes | performed at [facility];[address] | | LAB | | | | [address];[place] | | | | | | [address] | | | | + + + + + -+ | Absolute | 0.0Comment: Testing | 0 - 0.5 K/uL | EXTERNAL | | | Eosinophils | performed at [facility];[address] | | LAB | | | | [address];[place] | | | | | | [address] | | | | + + + + + -+ | Absolute | 0.1Comment: Testing | 0 - 0.1 K/uL | EXTERNAL | | | Basophils | performed at [facility];[address] | | LAB | | | | [address];[place] | | | | | | [address] | | | | + + + + + -+ | Na | 139Comment: Testing | 135 - 143 | EXTERNAL | | | | performed at [facility];[address] | mmol/L | LAB | | | | [address];[place] | | | | | | [address] | | | | + + + + + -+ | K | 3.4 (L)Comment: Testing | 3.5 - 4.9 | EXTERNAL | | | | performed at [facility];[address] | mmol/L | LAB | | | | [address];[place] | | | | | | [address] | | | | + + + + + -+ | Cl | 108Comment: Testing | 99 - 109 mmol/L | EXTERNAL | | | | performed at [facility];[address] | | LAB | | | | [address];[place] | | | | | | [address] | | | | + + + + + -+ | CO2 | 21 (L)Comment: Testing | 23 - 32 mmol/L | EXTERNAL | | | | performed at [facility];[address] | | LAB | | | | [address];[place] | | | | | | [address] | | | | + + + + + -+ | Anion Gap | 14Comment: Testing | 5 - 20 mmol/L | EXTERNAL | | | | performed at [facility];[address] | | LAB | | | | [address];[place] | | | | | | [address] | | | | + + + + + -+ | Glucose, | 124 (H)Comment: Testing | 65 - 99 mg/dL | EXTERNAL | | | Fasting | performed at [facility];[address] | | LAB | | | | [address];[place] | | | | | | [address] | | | | + + + + + -+ | BUN | 20Comment: Testing | 8 - 25 mg/dL | EXTERNAL | | | | performed at [facility];[address] | | LAB | | | | [address];[place] | | | | | | [address] | | | | + + + + + -+ | Creatinine | 0.97Comment: Testing | 0.70 - 1.30 | EXTERNAL | | | | performed at [facility];[address] | mg/dL | LAB | | | | [address];[place] | | | | | | [address] | | | | + + + + + -+ | BUN/Creatin | 21Comment: Testing | | EXTERNAL | | | ine Ratio | performed at [facility];[address] | | LAB | | | | [address];[place] | | | | | | [address] | | | | + + + + + -+ | Calcium | 8.7Comment: Testing | 8.5 - 10.2 | EXTERNAL | | | | performed at [facility];888 | mg/dL | LAB | | | | [address];[place] | | | | | | [address] | | | | + + + + + -+ | Protein, | 7.6Comment: Testing | 6.3 - 8.2 g/dL | EXTERNAL | | | Total | performed at [facility];[address] | | LAB | | | | [address];[place] | | | | | | [address] | | | | + + + + + -+ | Albumin | 4.2Comment: Testing | 3.6 - 5.0 g/dL | EXTERNAL | | | | performed at [facility];[address] | | LAB | | | | [address];[place] | | | | | | [address] | | | | + + + + + -+ | Globulin | 3.4Comment: Testing | 1.3 - 4.9 g/dL | EXTERNAL | | | | performed at [facility];[address] | | LAB | | | | [address];[place] | | | | | | [address] | | | | + + + + + -+ | A/G Ratio | 1.2Comment: Testing | 1.0 - 2.4 | EXTERNAL | | | | performed at [facility];[address] | | LAB | | | | [address];[place] | | | | | | [address] | | | | + + + + + -+ | Bilirubin | 1.1Comment: Testing | 0.1 - 1.5 mg/dL | EXTERNAL | | | Total | performed at [facility];[address] | | LAB | | | | [address];[place] | | | | | | [address] | | | | + + + + + -+ | ALP, | 77Comment: Testing | 35 - 115 U/L | EXTERNAL | | | External | performed at [facility];[address] | | LAB | | | | [address];[place] | | | | | | [address] | | | | + + + + + -+ | AST | 35Comment: Testing | 10 - 45 U/L | EXTERNAL | | | | performed at [facility];[address] | | LAB | | | | [address];[place] | | | | | | [address] | | | | + + + + + -+ | ALT | 43Comment: Testing | 10 - 65 U/L | EXTERNAL | | | | performed at [facility];[address] | | LAB | | | | [address];[place] | | | | | | [address] | | | | + + + [...] | | | | | [address];[place] [address] | | | | + + + + + -+ | CK, Total | 510 (H)Comment: Testing | 55 - 400 U/L | EXTERNAL | | | | performed at [facility];[address] | | LAB | | | [address];[place] | | | | | | [address] | | | | + + + [...] [place] | | | | | | [address] | | | | + + + + + -+ | aPTT, | 24Comment: Testing | 23 - 32 seconds | EXTERNAL | | | Patient | performed at [facility];[address] | | LAB | | | [address];[place] | | | | | | [address] | | | | + + + + + -+ | CK-MB | 9.3 (H)Comment: Testing | 0.5 - 3.6 ng/mL | EXTERNAL | | | | performed at [facility];[address] | | LAB | | | | [facility];[place], [place] | | | | | | [address] | | | | + + + [...] [place] | | | | | | [address] | | | | + + + [...] | LAB | | | | [address];[place], [place] | | | | | | [address] | | | | + + + [...]
--- OUTSIDE RECORDS SUMMARY | ~2019-10-27 | XMS | Encounter Summary ---
Demographics + + + | Address | [address] | | | [place] [address] | + + + | Home Phone [...] Providers + +------+ + | Care Revenue Manager Name | Role | Phone | + +------+ + PCP | Unavailable | + +------+ + Encounter Details +--------+ + + + + | Date | Type | Department | Care Team | Description | +--------+ + + + + | 02/21/ | [facility] | [facility] | Cristy Braun | | | 2008 | Encounter | [facility] | Ronald Adrian MD [address] | | | | | [place] [address] | [facility] | | | | | [place] | [place] [address] | | | | | [address] | [phone] | | | | | [phone] | | | +--------+ + + + [...] | | | | | | [place] [address] | | | | | | [phone] | | | | | | | | +--------+ + + + + | 11/20/ | Implant | Cardiology | Daljit Singletary, | Remote Device | | 2018 | Monitor | | MD Chiquis Oro | Interrogation | | | | | [facility], | (Primary Dx); | | | | | [place] [address] | Presence of | | | | | [phone] | permanent cardiac | | | | [...]
--- OUTSIDE RECORDS SUMMARY | ~2019-10-27 | XMS | Encounter Summary ---
Demographics + + + | Address | [address] | | | [place] [address] | + + + | Home Phone [...] Providers + +------+ + | Care [employer] Social Worker Name | Role | Phone [...] unspecified | [address] | | | | | type | [address] | [place], | | | | | Procedures | [place], | [place] | | | | | [place] | [place] [address] | [address] | | | | | Stress Test | Phone: | Phone: | | | | | (Vasodilator | [phone] | [phone] | | | | | ) CHG | Fax: | Fax: | | | | | MYOCARDIAL | [phone] | [phone] | | | | | SPECT | | | | | | | MULTIPLE | | | | | | | STUDIES [place] | | | | | | | CV STRS TST | | | | | | | XERS&/OR RX | | | | | | | CONT ECG W/O | | | | | | | I&R [place] | | | | | | | [...] unspecified | [address] | [address] | | | | | type | [address] | [place], | | | | | Procedures | [place], | [place] | | | | | [place] | [place] [address] | [address] | | | | | Stress Test | Phone: | Phone: | | | | | (Vasodilator | [phone] | [phone] | | | | | ) CHG | Fax: | Fax: | | | | | MYOCARDIAL | [phone] | [phone] | | | | | SPECT | | | | | | | MULTIPLE | | | | | | | STUDIES [place] | | | | | | | CV STRS TST | | | | | | | XERS&/OR RX | | | | | | | CONT ECG W/O | | | | | | | I&R [place] | | | | | | | [...] + + | 07/21/ | Hospital | [facility] | Daljit Singletary, | Chest pain, | | 2018 | Encounter | MED CTR NUCLEAR | MD [address] | unspecified type | | | | MEDICINE [address] | [address] [place], | | | | | [place], | [place] [address] | | | | | [place] [address] | [phone] | | | | | [phone] | | | | | | | [place]re Feeder[place]avel | | +--------+ + + + + [...] + + + +---------+ + + | [place]-3 Fatty | CAPS, one capsule by | [...] | | | | | | [place] [address] | | | | | | [phone] | | | | | | | | +--------+ + + + + | 11/20/ | Implant | Cardiology | Daljit Singletary, | Remote Device | | 2019 | Monitor | | [facility] | Interrogation | | | | | [place], | (Primary Dx); | | | | | [place] [address] | Presence of | | | | | [phone] | permanent cardiac | | | | [...] | | | | | doctor, Starting [facility] 07/21/18 at | | | | [...] | | | | | | Starting [facility] 07/21/18 at 0822, For | | | | | | | 1 dose, Nuclear Medicine | | | | | | + +-------+ + +---+---+ +---+---+ | | | +---+---+ documented in this encounter"
--- OUTSIDE RECORDS SUMMARY | ~2019-10-27 | XMS | Encounter Summary ---
Demographics + + + | Address | [address] | | | [place] [address] | + + + | Home Phone [...] Providers + +------+ + | Care Tobacco Sorter Name | Role | Phone | [...] | CARDIOLOGY [address] | card ) | | | | [place], | [place], | | | | | [place] [address] | [place] [address] | | | | | [phone] | [phone] | | | | | | | [...] W | | | | | | Hall [place], | | | | | | [place] [address] | | | | | | [phone] | | | | | | | | +--------+ + + + + | 11/20/ | Implant | Cardiology | Daljit Singletary, | Remote Device | | 2018 | Monitor | | [facility] | Interrogation | | | | | [place], | (Primary Dx); | | | | | [place] [address] | Presence of | | | | | [phone] | permanent cardiac | | | | [...]
--- OUTSIDE RECORDS SUMMARY | ~2019-10-27 | XMS | Encounter Summary ---
Demographics + + + | Address | [address] | | | [place] [address] | + + + | Home Phone [...] Providers + +------+ + | Care Airport Ramp Supervisor Name | Role | Phone | [...] 2019 | | GASTROENTEROLOGY | [address], [place] | | | | | [address] [place] | [address] [place], [place] | | | | | [address] [place], [place] | [address] | | | | | [address] | | | | | | [phone] | | | +--------+ + + + [...] W | | | | | | [place], | | | | | | [place] [address] | | | | | | [phone] | | | | | | | | +--------+ + + + + | 11/20/ | Implant | Cardiology | Daljit Singletary, | Remote Device | | 2018 | Monitor | | [address] | Interrogation | | | | | [place], | (Primary Dx); | | | | | [place] [address] | Presence of | | | | | [phone] | permanent cardiac | | | | [...]
--- OUTSIDE RECORDS SUMMARY | ~2019-10-27 | XMS | Encounter Summary ---
Demographics + + + | Address | [address] | | | [place] [address] | + + + | Home Phone [...] Providers + +------+ + | Care Feed Management Advisor Name | Role | Phone | + +------+ + PCP | Unavailable | + +------+ + Encounter Details +--------+ + + + + | Date | Type | Department | Care Team | Description | +--------+ + + + + | 12/01/ | Hospital | [facility] | | | | 1997 | Encounter | MED CTR EMERGENCY | | | | | | CENTER [address] | | | | | | [place] | | | | | | [address] | | | | | | [phone] | | | +--------+ + + + [...] | | | | | | [place] [address] | | | | | | [phone] | | | | | | | | +--------+ + + + + | 11/20/ | Implant | Cardiology | Daljit Singletary, | Remote Device | | 2018 | Monitor | | [facility] | Interrogation | | | | | [place], | (Primary Dx); | | | | | [place] [address] | Presence of | | | | | [phone] | permanent cardiac | | | | [...]
--- OUTSIDE RECORDS SUMMARY | ~2019-10-27 | XMS | Encounter Summary ---
Demographics + + + | Address | [address] | | | [place] [address] | + + + | Home Phone [...] + + +---------+ + | Maria Isabelchelo Snachez | ECON | Unknown | | + + +---------+ + Care Team Providers + +------+ + | Care Fire Control Technician B Name | Role | Phone | + [...] [address] | | | | | [place], | [place], | | | | | [place] [address] | [place] [address] | | | | | [phone] | [phone] | | | | | | | [...] | | | | | | [place] [address] | | | | | | [phone] | | | | | | | | +--------+ + + + + | 11/20/ | Implant | Cardiology | Daljit Singletary, | Remote Device | | 2018 | Monitor | | MD [address] | Interrogation | | | | | [address] [place], | (Primary Dx); | | | | | [place] [address] | Presence of | | | | | [phone] | permanent cardiac | | | | [...]
--- OUTSIDE RECORDS SUMMARY | ~2019-10-27 | XMS | Encounter Summary ---
Demographics + + + | Address | [address] | | | [place] [address] | + + + | Home Phone [...] Team Providers + +------+ + | Care Chronometer Assembler Name | Role | Phone | [...] Provider Unknown | | | | | [place], [place] | [phone] | | | | | [address] | | | | | | [phone] | | | +--------+ + + + [...] + + + +---------+ + + | [place]-3 Fatty | CAPS, one capsule by | [...] | | | | | | [place] [address] | | | | | | [phone] | | | | | | | | +--------+ + + + + | 11/20/ | Implant | Cardiology | Daljit Singletary, | Remote Device | | 2018 | Monitor | | MD [address] [place] | Interrogation | | | | | [place], | (Primary Dx); | | | | | [place] [address] | Presence of | | | | | [phone] | permanent cardiac | | | | [...]
--- OUTSIDE RECORDS SUMMARY | ~2019-10-27 | XMS | Encounter Summary ---
Demographics + + + | Address | [address] | | | [place] [address] | + + + | Home Phone [...] Providers + +------+ + | Care Fire Chief Name | Role | Phone | [...] Refill | | 2013 | | MEDICINE DRYDEN | DO [address] | | | | | [address] | [place] | | | | | [place] | [address] | | | | | [address] | | | | | | [phone] | | | +--------+--------+ + + + [...] | | | | | [place], | | | | | | [place] [address] | | | | | | [phone] | | | | | | | | +--------+ + + + + | 11/20/ | Implant | Cardiology | Daljit Singletary, | Remote Device | | 2018 | Monitor | | [facility] | Interrogation | | | | | [place], | (Primary Dx); | | | | | [place] [address] | Presence of | | | | | [phone] | permanent cardiac | | | | [...]
--- OUTSIDE RECORDS SUMMARY | ~2019-10-27 | XMS | Encounter Summary ---
Demographics + + + | Address | [address] | | | [place] [address] | + + + | Home Phone [...] Providers + +------+ + | Care Collection Manager Name | Role | Phone | + +------+ + PCP | Unavailable | + +------+ + Encounter Details +--------+ + + + + | Date | Type | Department | Care Team | Description | +--------+ + + + + | 09/29/ | Hospital | [facility] | | | | 1995 | Encounter | MED CTR EMERGENCY | | | | | | [place] [address] | | | | | | [place] | | | | | | [address] | | | | | | [phone] | | | +--------+ + + + [...] | | | | | | [place] [address] | | | | | | [phone] | | | | | | | | +--------+ + + + + | 11/20/ | Implant | Cardiology | Daljit Singletary, | Remote Device | | 2018 | Monitor | | [address] [facility] | Interrogation | | | | | [place], | (Primary Dx); | | | | | [place] [address] | Presence of | | | | | [phone] | permanent cardiac | | | | [...]
--- OUTSIDE RECORDS SUMMARY | ~2019-10-27 | XMS | Encounter Summary ---
Demographics + + + | Address | [address] | | | [place] [address] | + + + | Home Phone [...] Team Providers + +------+ + | Care Buffer Nickel Name | Role | Phone | + +------+ + | Kirk French MD | PCP | | + +------+ + Encounter Details +--------+ + + + + | Date | Type | Department | Care Team | Description | +--------+ + + + + | 10/25/ | Hospital | [facility] | Kirk French | Chronic pain | | 2017 | Encounter | MED CTR ULTRASOUND | MD Brea Eva LORA | disorder; Stomach | | | | [address] [place] | [address] | ache; Obesity, | | | | [place], [place] | [place] [address] | unspecified | | | | [address] | [phone] | classification, | | | | [phone] | | unspecified obesity | | | [...] + + +---------+ + + | [place]-3 Fatty | CAPS, one capsule by | [...] | | | | | | [place] [address] | | | | | | [phone] | | | | | | | | +--------+ + + + + | 11/20/ | Implant | Cardiology | Daljit Singletary, | Remote Device | | 2018 | Monitor | | 401 [facility] | Interrogation | | | | | [place], | (Primary Dx); | | | | | [place] [address] | Presence of | | | | | [phone] | permanent cardiac | | | | [...]
--- OUTSIDE RECORDS SUMMARY | ~2019-10-27 | XMS | Encounter Summary ---
Demographics + + + | Address | [address] | | | [place] [address] | + + + | Home Phone [...] Providers + +------+ + | Care Hadoop Software Engineer Name | Role | Phone [...] + | 02/27/ | Telephone | [facility] | [place], | Chest Pain (Patient | | 2013 | | CARDIOLOGY [address] | Janeen, BIOLOGICS SPECIALIST [address] | having chest pain) | | | | [place], | [place], | | | | | [place] [address] | [place] [address] | | | | | [phone] | [phone] | | | | | | | [...] W | | | | | | [place], | | | | | | [place] [address] | | | | | | [phone] | | | | | | | | +--------+ + + + + | 11/20/ | Implant | Cardiology | Daljit Singletary, | Remote Device | | 2018 | Monitor | | [address] [place] | Interrogation | | | | | [place], | (Primary Dx); | | | | | [place] [address] | Presence of | | | | | [phone] | permanent cardiac | | | | [...]
--- OUTSIDE RECORDS SUMMARY | ~2019-10-27 | XMS | Encounter Summary ---
Demographics + + + | Address | [address] | | | [place] [address] | + + + | Home Phone [...] Providers + +------+ + | Care Process Stripper Name | Role | Phone | [...] | | CARDIOLOGY [address] | Janeen, BORING MACHINE OPERATOR DOUBLE END [address] | reading) | | | | [place], | [place], | | | | | [place] [address] | [place] [address] | | | | | [phone] | [phone] | | | | | | | [...] | | | | | | [place] [address] | | | | | | [phone] | | | | | | | | +--------+ + + + + | 11/20/ | Implant | Cardiology | Daljit Singletary, | Remote Device | | 2018 | Monitor | | MD [address] | Interrogation | | | | | [address], | (Primary Dx); | | | | | [place] [address] | Presence of | | | | | [phone] | permanent cardiac | | | | [...]
--- OUTSIDE RECORDS SUMMARY | ~2019-10-27 | XMS | Encounter Summary ---
Demographics + + + | Address | [address] | | | [place] [address] | + + + | Home Phone [...] Team Providers + +------+ + | Care Scalehouse Attendant Name | Role | Phone | [...] 2012 | | CARDIOLOGY [address] | INBOUND INGREDIENT LOGISTICS SPECIALIST [address] [place] | faxed) | | | | [place], | [place] [facility] | | | | | [place] [address] | [address] | | | | | [phone] | | | +--------+ + + + [...] W | | | | | | [place], | | | | | | [place] [address] | | | | | | [phone] | | | | | | | | +--------+ + + + + | 11/20/ | Implant | Cardiology | Daljit Singletary, | Remote Device | | 2018 | Monitor | | [address] [facility] | Interrogation | | | | | [place], | (Primary Dx); | | | | | [place] [address] | Presence of | | | | | [phone] | permanent cardiac | | | | [...]
--- OUTSIDE RECORDS SUMMARY | ~2019-10-27 | XMS | Encounter Summary ---
Demographics + + + | Address | [address] | | | [place] [address] | + + + | Home Phone [...] Providers + +------+ + | Care Spring Setter Name | Role | Phone | [...] | | CARDIOLOGY [address] | Janeen DIESEL PLANT OPERATOR [address] | mixed | | | | [place], | [place], | | | | | [place] [address] | [place] [address] | | | | | [phone] | [phone] | | | | | | | [...] | | | | | | [place] [address] | | | | | | [phone] | | | | | | | | +--------+ + + + + | 11/20/ | Implant | Cardiology | Daljit Singletary, | Remote Device | | 2018 | Monitor | | MD Sim [facility] | Interrogation | | | | | [address] [place], | (Primary Dx); | | | | | [place] [address] | Presence of | | | | | [phone] | permanent cardiac | | | | [...]
--- OUTSIDE RECORDS SUMMARY | ~2019-10-27 | XMS | Encounter Summary ---
Demographics + + + | Address | [address] | | | [place] [address] | + + + | Home Phone [...] Providers + +------+ + | Care Clinical Care Leader Name | Role | Phone | [...] | Aneurysmal | Silvia, | [address] [place] | | | | | dilatation | PARISA Solis | [place], | | | | | (HCC) | [address] | [place] | | | | | Procedures | [place] | [address] | | | | | ECHO | [place], | Phone: | | | | | Complete | [place] | [phone] | | | | | | [address] | Fax: | | | | | | Phone: | [phone] | | | | | | [phone] | | | | | | | Fax: | | | | | | | [phone] | | +--------+--------+ + + + + Encounter Details +--------+ + + + + | Date | Type | Department | Care Team | Description | +--------+ + + + + | 11/16/ | Orders Only | [facility] [place] | [place], | Aneurysmal | | 2017 | | CARDIOLOGY [address] | PARISA Solis [address] | dilatation (HCC) | | | | [place], | [place], | (Primary Dx) | | | | [place] [address] | [place] [address] | | | | | [phone] | [phone] | | | | | | | [...] W | | | | | | [place], | | | | | | [place] [address] | | | | | | [phone] | | | | | | | | +--------+ + + + + | 11/20/ | Implant | Cardiology | Sydni Singletary, | Remote Device | | 2018 | Monitor | | [address] [place] | Interrogation | | | | | [place], | (Primary Dx); | | | | | [place] [address] | Presence of | | | | | [phone] | permanent cardiac | | | | [...] Room Number SARAH Patient | | | [id number] Date of Study 11/16/2017 Number | | | Visit Number [id number] | | | Referring Physician GURJIT TROY Number | | | ELIZABETHANGELIA SOLIS Date | | | of 1960 Enrollment Coordinator ROMAINE | | | MARISSA TIPTON Age 57 year(s) Interpreting | | | GURJIT TROY | | | Health Safety Manager SYDNI SINGLETARY, | | | | | | Gender Male Nurse | | | Stress Abatement Worker Procedure Type of | | | Study [...] | | | EF | | | Psmjlaxhl34% Left Ventricle Diastolic Dimension: 5.12 cm | [...] Volume: 46.33 ml | | | EF Rvltlbunx58% | | | | | | Left [...] BARRY Room Number SARAH | | Patient [id number] Date of Study 11/16/2017 Number Visit Number | | [id number] Referring Physician GURJIT TROY | | Number NORMA MCLAUGHLINN Date of | | 1960 Enrollment Coordinator ROMAINE TIPTON RDCS Age 57 year(s) | | Interpreting GURJIT TROY Health Safety Manager | | SYDNI SINGLETARY MD | | [...] LA Volume: 46.33 ml | | EF Xjnouadok24% Left Ventricle Diastolic Dimension: 5.12 cm Systolic [...] LA Volume: 46.33 ml | | EF Cbdlckkum43% | | | | Left Ventricle | [...]
--- OUTSIDE RECORDS SUMMARY | ~2019-10-27 | XMS | Encounter Summary ---
Demographics + + + | Address | [address] | | | [place] [address] | + + + | Home Phone [...] + +------+ + | Care Health Education Teacher Name | Role | Phone [...] | disease involving | | | | [place], | [place], | [place] | | | | [place] [address] | [place] [address] | artery without | | | | [phone] | [phone] | angina pectoris | | | | [...] W | | | | | | [place], | | | | | | [place] [address] | | | | | | [phone] | | | | | | | | +--------+ + + + + | 11/20/ | Implant | Cardiology | Daljit Singletary, | Remote Device | | 2018 | Monitor | | [place] [facility] [place] | Interrogation | | | | | [place], | (Primary Dx); | | | | | [place] [address] | Presence of | | | | | [phone] | permanent cardiac | | | | [...] MD | | | | | | ([id number]) on 08/29/2015 | | | | | [...] + + | Coronary artery disease involving [place] coronary artery without angina pectoris - | | Primary | + + documented in this encounter"
--- OUTSIDE RECORDS SUMMARY | ~2019-10-27 | XMS | Encounter Summary ---
Demographics + + + | Address | [address] | | | [place] [address] | + + + | Home Phone [...] Providers + +------+ + | Care Economic Adviser Name | Role | Phone | [...] + | 09/05/ | Office | [facility] | Geri Angel, | SINUS BRADYCARDIA | | 2012 | Visit | CARDIOLOGY [address] | RESPIRATORY CARE PROGRAM DIRECTOR [address] [place] | (Primary Dx); | | | | [place], | St [place], [place] | Symptomatic PVCs; | | | | [place] [address] | [address] | Hypertension; | | | | [phone] | | Hyperlipidemia | +--------+---------+ + + [...] and/or ref er you to electrophysiology in [place]. 3. Return in 3 months, or sooner [...] he did not followup with electrophysiology in [place], so he has remained on diltiaze m [...] by mouth Ken y. 30 tablet 6 [place]-3 Fatty Acids (SALMON OIL-1000 PO) Active CAPS, [...] Sanchez Date: September 05, 2013 : 1960 Weather Strip Mechanic: PARISA Velazquez Device Rug Backing Stenciler: Rhythm NewMedia Sense (mV) Impedance (?) Capture (V) Capture (ms) A Lead 4-5.6 417 1.5 0.12 RV Lead >31.36 533 2.0 0.09 LV Lead Battery Impedance (?): 452 Battery Voltage (V): 2.79 WI Interval (ms): 162 AR Interval (ms): 245 VA Conduction: Mode Switch Events: 1 % of time: <0.1 -CLINIC PHYSICIAN DIRECTOR: <0.1% AP-CLINIC PHYSICIAN DIRECTOR: 0.1% -VS: 22.7% AP-VS: 77.1% CLINIC PHYSICIAN DIRECTOR: Magnetic Rate: 85 LINDA: 65 LEAH: Current [...] ventricular arrhythmia performed by Dr. Gambino at [facility] on 01/30/2013. Patient had spontaneous PVCs [...] to go back in 3 days to [place] for an attempt of ablation under general [...] He is upgraded to class I of 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 There are no [...] he would like to see electrophysiology in [place] rather than [place] as he paulino s family there, if [...] made to ensure accuracy; however, inadvertent computerized modeling teacher errors may be pre sent. Electronically signed [...] | | | | | | [place] [address] | | | | | | [phone] | | | | | | | | +--------+ + + + + | 11/20/ | Implant | Cardiology | Daljit Singletary, | Remote Device | | 2019 | Monitor | | MD [address] [facility] | Interrogation | | | | | [place], | (Primary Dx); | | | | | [place] [address] | Presence of | | | | | [phone] | permanent cardiac | | | | [...]
--- OUTSIDE RECORDS SUMMARY | ~2019-10-27 | XMS | Encounter Summary ---
Demographics + + + | Address | [address] | | | [place] [address] | + + + | Home Phone [...] Providers + +------+ + | Care Fur Cleaner Name | Role | Phone | [...] 2019 | | GASTROENTEROLOGY | [address] [place] | Syndrome | | | | [address] [place] | [address] [place], [place] | | | | | [address] [place], [place] | [address] | | | | | [address] | | | | | | [phone] | | | +--------+ + + + [...] | | | | | | [place] [address] | | | | | | [phone] | | | | | | | | +--------+ + + + + | 11/20/ | Implant | Cardiology | Daljit Singletary, | Remote Device | | 2018 | Monitor | | MD [place] | Interrogation | | | | | [facility] [place], | (Primary Dx); | | | | | [place] [address] | Presence of | | | | | [phone] | permanent cardiac | | | | [...]
--- OUTSIDE RECORDS SUMMARY | ~2019-10-27 | XMS | Encounter Summary ---
Demographics + + + | Address | [address] | | | [place] [address] | + + + | Home Phone [...] Providers + +------+ + | Care Car Pre Cooler Name | Role | Phone | + [...] | | [address] | [place] [address] | | | | | [place] | [phone] | | | | | [address] | | | | | | [phone] | | | +--------+ + + + [...] | | | | | | [place], | | | | | | [place] [address] | | | | | | [phone] | | | | | | | | +--------+ + + + + | 11/20/ | Implant | Cardiology | Daljit Singletary, | Remote Device | | 2018 | Monitor | | MD [address] | Interrogation | | | | | [place], | (Primary Dx); | | | | | [place] [address] | Presence of | | | | | [phone] | permanent cardiac | | | | [...]
--- OUTSIDE RECORDS SUMMARY | ~2019-10-27 | XMS | Encounter Summary ---
Demographics + + + | Address | [address] | | | [place] [address] | + + + | Home Phone [...] + | Author | [facility] | | | and [...] Providers + +------+ + | Care Financial Institution President Name | Role | Phone | [...] | | CARDIOLOGY [address] | [address] [place] | | | | | [place], | [place], | | | | | [place] [address] | [place] [address] | | | | | [phone] | [phone] | | | | | | | [...] W | | | | | | [place], | | | | | | [place] [address] | | | | | | [phone] | | | | | | | | +--------+ + + + + | 11/20/ | Implant | Cardiology | Daljit Singletary, | Remote Device | | 2018 | Monitor | | [facility] | Interrogation | | | | | [place], | (Primary Dx); | | | | | [place] [address] | Presence of | | | | | [phone] | permanent cardiac | | | | [...]
--- OUTSIDE RECORDS SUMMARY | ~2019-10-27 | XMS | Encounter Summary ---
Demographics + + + | Address | [address] [place] [address] | | | [place] [address] | + + + | Home Phone [...] [place] | | | | | [address] | | + + + + + Care Team Providers + +------+ + | Care Cotton Machine Operator Name | Role | Phone [...] 2019 | | Center at [facility] [address] | [address] | | | | | [address] | [place], [place] | | | | | Mailcode: [place] | [address] | | | | | [facility] and | [phone] | | | | | [place] [address] | | | | | | [place], [place] | | | | | | [address] | | | | | | [phone] | | | +--------+ + + + [...]
--- OUTSIDE RECORDS SUMMARY | ~2019-10-27 | XMS | Encounter Summary ---
Demographics + + + | Address | [address] | | | [place] [address] | + + + | Home Phone [...] Providers + +------+ + | Care Sheet Rock Nailer Name | Role | Phone | + [...] | Palpitations | [address] | | | | | Procedures | [address] | [address] [place] | | | | | ECHO | [place], | [place], [place] | | | | | Complete | [place] [address] | [address] | | | | | | Phone: | Phone: | | | | | | [phone] | [phone] | | | | | | Fax: | Fax: | | | | | | [phone] | [phone] | +--------+--------+ + + + + Encounter Details +--------+ + + + + | Date | Type | Department | Care Team | Description | +--------+ + + + + | 12/30/ | Hospital | [facility] | TimmyshaistateshaShaistatimmy, | Palpitations | | 2012 - | Encounter | MED CTR XRAY [address] | MD [address] | | | | | [address] [place] | [address], | | | 01/01/ | | [place] [address] | [place] [address] | | | 2012 | | [phone] | [phone] | | | | | | | [...] + + + +---------+ + + | [place]-3 Fatty | CAPS, one capsule by | [...] | | | | | | [place] [address] | | | | | | [phone] | | | | | | | | +--------+ + + + + | 11/20/ | Implant | Cardiology | Daljit Singletary, | Remote Device | | 2019 | Monitor | | [address] | Interrogation | | | | | [place], | (Primary Dx); | | | | | [place] [address] | Presence of | | | | | [phone] | permanent cardiac | | | | [...] At | + + + | [facility] | [place] | | Department [address] | [facility] | | [ rep ct street1[address]2] [ rep ct [facility] | | st zip] Signed | - IMAGING | | | | | Patient Name: MOE GAY W | | | Physician: MIGUELINA : 1960 Age: 52 Sex: M Unit | | | #: [id number] Exam Date: 12/30/12 Location: | | | G Report #: [id number] Page: | | | %(RAD)RES..mtdd.print.filter("pg") of %(RAD) | | | RES..mtdd.print.filter("tpg") | | | | | | Accession Number: [id number] | | | E C H O C A R D I O G R A P H Y R E P O R T | | | HEIGHT: 76" WEIGHT: 270# | | | HORSE BUYER: JAMEEL REFERRING DR: TIMMY DRAKE DR: | [...] | | | Transcribed Date/Time: 12/30/2012 16:34 Cafe Lead: | | | <<Signature on File>> | | | Daljit | | | MD CLEOPATRA Singletary FASE01/02/13 0955 <Electronically signed by | | | Daljit Singletary MD, [facility], FACP, FASE, FASNC> Rashadong | | | MD CLEOPATRA Singletary 12/30/12 1608 Cafe Lead: [employer] | | | Lgvicogbwhrop17/08/13 1634 Daljit Singletary MD FACC | | | FASE | | + + + + + + + + | Performing | Address | City/State/Zipcode | Phone Number | | Organization | | | | + + + + + | [facility] | [address] | [place] | [phone] | | [facility] | | [address] | | | - IMAGING | | | | + + + + + documented in this encounter Visit Diagnoses + + | Diagnosis | + + | Palpitations | + + documented in this encounter
--- OUTSIDE RECORDS SUMMARY | ~2019-10-27 | XMS | Encounter Summary ---
Demographics + + + | Address | [address] | | | [place] [address] | + + + | Home Phone [...] Providers + +------+ + | Care Cloth Boil Off Machine Operator Name | Role | Phone [...] | CARDIOLOGY [address] | [address] | Interrogation | | | | [place], | [place], | (Primary Dx); | | | | [place] [address] | [place] [address] | Pacemaker; | | | | [phone] | [phone] | Sinoatrial node | | | | [...] | | | | | | [place] [address] | | | | | | [phone] | | | | | | | | +--------+ + + + + | 11/20/ | Implant | Cardiology | Daljit Singletary, | Remote Device | | 2019 | Monitor | | MD [address] | Interrogation | | | | | [place], | (Primary Dx); | | | | | [place] [address] | Presence of | | | | | [phone] | permanent cardiac | | | | [...] remote PDF scanned into | | | [facility] for remote interrogation results. Data collected [...]
--- OUTSIDE RECORDS SUMMARY | ~2019-10-27 | XMS | Encounter Summary ---
Demographics + + + | Address | [address] | | | [place] [address] | + + + | Home Phone [...] + +------+ + | Care Respiratory Care Program Director Name | Role | Phone [...] | MED CTR EXTERNAL | MD [address] | | | | | IMAGING | Jay [place] | | | | | [phone] | [place] [address] | | +--------+ + + + + [...] W | | | | | | [place], | | | | | | [place] [address] | | | | | | [phone] | | | | | | | | +--------+ + + + + | 11/20/ | Implant | Cardiology | Daljit Singletary, | Remote Device | | 2018 | Monitor | | MD [facility] | Interrogation | | | | | [place], | (Primary Dx); | | | | | [place] [address] | Presence of | | | | | [phone] | permanent cardiac | | | | [...]
--- OUTSIDE RECORDS SUMMARY | ~2019-10-27 | XMS | Encounter Summary ---
Demographics + + + | Address | [address] | | | [place] [address] | + + + | Home Phone [...] Team Providers + +------+ + | Care Sub Master Name | Role | Phone | [...] | 07/30/ | Telephone | [facility] | Michael Amanda, | Results | | 2013 | | MEDICINE [place] | DO [address] | | | | | [address] | [place] | | | | | [place] | [address] | | | | | [address] | | | | | | [phone] | | | +--------+ + + + [...] | | | | | | [place] [address] | | | | | | [phone] | | | | | | | | +--------+ + + + + | 11/20/ | Implant | Cardiology | Daljit Singletary, | Remote Device | | 2018 | Monitor | | MD [address] | Interrogation | | | | | [place], | (Primary Dx); | | | | | [place] [address] | Presence of | | | | | [phone] | permanent cardiac | | | | [...]
--- OUTSIDE RECORDS SUMMARY | ~2019-10-27 | XMS | Encounter Summary ---
Demographics + + + | Address | [address] | | | [place] [address] | + + + | Home Phone [...] Providers + +------+ + | Care Residential Appraiser Name | Role | Phone | + +------+ + | Michael Amanda DO | PCP | | + +------+ + Encounter Details +--------+ + + + + | Date | Type | Department | Care Team | Description | +--------+ + + + + | 01/30/ | Hospital | [facility] | Jay Gambino MD | | | 2012 - | Encounter | HEART MED CTR | [address] | | | | | CARDIAC TELEMETRY | [address] [place], | | | 01/31/ | | [address] | [place] [address] | | | 2012 | | [place] | [phone] | | | | | [address] | | | | | | [phone] | | | +--------+ + + + [...] 1960 ADMISSION DATE: 01/30/2013 DISCHARGE DATE: 01/31/2013 [id number] / [id number] ADMITTING DIAGNOSES: 1. Symptomatic PVCs. 2. Sinus [...] 150, 1 to 2 tabs daily. 10. [place]-3 fatty acids 1000 mg b.i.d. MOE GAY ADM:01/30/13 [id number] 01/31/13 DIS [place] DISCHARGE SUMMARY [id number] [facility] Carmela Cuevas PAC B [facility] MD Meena Pleitez THIS REPORT IS CONFIDENTIAL AND NOT TO BE RELEASED WITHOUT PROPER AUTHORIZATION. [facility] 11. Valacyclovir 500 mg daily. B. New medication added: Diltiazem CD 180 a day. FOLLOWUP: The patient has a followup appointment on 03/02/2013 at 10:[address] Niles meza at the [facility] [place] [facility], [address]. No heavy lifting or driving times 48 hours. YOANA Barlow MD A P [facility] [place] #[id number] cc: MD Carmela Pleitez PA-C Electronically Signed 02/06/13 1616 LAKESHIA Barlow Electronically Signed 02/20/13 0731 Jay Gambino MD MOE GAY ADM:01/30/13 [id number] 01/31/13 DIS [place] DISCHARGE SUMMARY [id number] [facility] LAKESHIA Barlow B [facility] Jay Gambino MD R THIS REPORT IS CONFIDENTIAL AND NOT TO BE RELEASED WITHOUT PROPER AUTHORIZATION.Electronica lly signed by Jael Brown at 02/20/2013 7:31 AM FRANCYZzCarmela Moncada - 02/01/20 13 8:44 AM PDT PATIENT NAME: MOE GAY Sex/Age: M / 52Y : 1960 ADMISSION DATE: 01/30/2013 DISCHARGE DATE: 01/31/2013 [id number] / [id number] ADMITTING DIAGNOSES: 1. Symptomatic PVCs. 2. Sinus [...] 150, 1 to 2 tabs daily. 10. [place]-3 fatty acids 1000 mg b.i.d. MOE GAY ADM:01/30/13 [id number] 01/31/13 DIS [place] DISCHARGE SUMMARY [id number] [facility] LAKESHIA Barlow B [facility] MD Meena Pleitez THIS REPORT IS CONFIDENTIAL AND NOT TO BE RELEASED WITHOUT PROPER AUTHORIZATION. [facility] 11. Valacyclovir 500 mg daily. B. New medication added: Diltiazem CD 180 a day. FOLLOWUP: The patient has a followup appointment on 03/02/2013 at 10:[address] Niles meza at the [facility], [address]. No heavy lifting or driving times 48 hours. YOANA Barlow MD A P [facility] [place] #[id number] cc: MD Carmela Pleitez PA-C Electronically Signed 02/06/13 1616 LAKESHIA Barlow MOE GAY ADM:01/30/13 [id number] 01/31/13 DIS [place] DISCHARGE SUMMARY [id number] [facility] LAKESHIA Barlow ES B [facility] [...] + + +---------+ + + | [place]-3 Fatty | CAPS, one capsule by | [...] | | | | | | [place] [address] | | | | | | [phone] | | | | | | | | +--------+ + + + + | 11/20/ | Implant | Cardiology | Daljit Singletary, | Remote Device | | 2019 | Monitor | | [address] [facility] | Interrogation | | | | | [place], | (Primary Dx); | | | | | [place] [address] | Presence of | | | | | [phone] | permanent cardiac | | | | [...] + | [facility] | [address] [facility] [address] | [place] [address] | | | [facility] | [...] + + | [facility] | [address] | [place] [address] | | | [facility] | [...] + + | Glucose | 113 (H)Comment: Israeli | 65 - 99 mg/dL | [facility] | | | | Diabetes Association | [...] + + | [facility] | [address] | [place] [address] | | | [facility] | | | | | LABORATORY | | | | + + + + + | [place] | | | | | [facility] | | | | | LABORATORY | | | | + + + + + documented in this encounter Visit Diagnoses Not on filedocumented in this encounter"
--- OUTSIDE RECORDS SUMMARY | ~2019-10-27 | XMS | Encounter Summary ---
Demographics + + + | Address | [address] | | | [place] [address] | + + + | Home Phone [...] Team Providers + +------+ + | Care Quill Machine Operator Name | Role | Phone | + +------+ + | Michael Amanda DO | PCP | | + +------+ + Encounter Details +--------+ + + + + | Date | Type | Department | Care Team | Description | +--------+ + + + + | 06/26/ | Hospital | [facility] | Michael Amanda, | Diplopia | | 2012 | Encounter | MED CTR LABORATORY | DO [address] | | | | | [address] [place] | [place], [place] | | | | | [place], [place] | [address] | | | | | [address] | | | | | | [phone] | | | +--------+ + + + [...] + + + +---------+ + + | [place]-3 Fatty | CAPS, one capsule by | [...] W | | | | | | [place], | | | | | | [place] [address] | | | | | | [phone] | | | | | | | | +--------+ + + + + | 11/20/ | Implant | Cardiology | Daljit Singletary, | Remote Device | | 2018 | Monitor | | [address] [facility] | Interrogation | | | | | [place], | (Primary Dx); | | | | | [place] [address] | Presence of | | | | | [phone] | permanent cardiac | | | | [...] + | [facility] | [address] | [place], [place] | [phone] | | [facility] | | [address] | | | - LABORATORY | | | | + + + + + | [facility] | [address] | [place], [place] | | | [facility] | | [address] | | | - LABORATORY | | [...] performed on the Javid | uIU/mL | [facility] | | | | [facility] Access [...] [address] | [place] | [phone] | | [facility] | | [address] | | | - LABORATORY | | | | + + + + + | [facility] | [address] | [place] | | | [facility] | | [address] | | | - LABORATORY | | [...] + | [facility] | [address] | [place] | [phone] | | [facility] | | [address] | | | - LABORATORY | | | | + + + + + | [facility] | [address] | [place], [place] | | | [facility] | | [address] | | | - LABORATORY | | [...] + | [facility] | [address] | [place] | [phone] | | [facility] | | [address] | | | - LABORATORY | | | | + + + + + | [facility] | [address] | [place], [place] | | | [facility] | | [address] | | | - LABORATORY | | [...] + | [facility] | [address] | [place] | [phone] | | [facility] | | [address] | | | - LABORATORY | | | | + + + + + | [facility] | [address] | [place] | | | [facility] | | [address] | | | - LABORATORY | | [...] performed on the Javid | uIU/mL | [facility] | | | | [facility] | | MEDICAL | | | [...] + | [facility] | [address] | [place] | [phone] | | [facility] | | [address] | | | - LABORATORY | | | | + + + + + | [facility] | [address] | [place] | | | [facility] | | [address] | | | - LABORATORY | | | | + + + + + documented in this encounter Visit Diagnoses + + | Diagnosis | + + | Diplopia | + + documented in this encounter"
--- OUTSIDE RECORDS SUMMARY | ~2019-10-27 | XMS | Encounter Summary ---
Demographics + + + | Address | [address] | | | [place] [address] | + + + | Home Phone [...] Team Providers + +------+ + | Care Sephora Product Consultant Name | Role | Phone | + +------+ + | Kirk French MD | PCP | | + +------+ + Encounter Details +--------+ + + + + | Date | Type | Department | Care Team | Description | +--------+ + + + + | 01/07/ | Hospital | [facility] | Conversion | | | 2017 | Encounter | [facility] | Transaction, | | | | | ULTRASOUND [address] | Provider Unknown | | | | | [address] [facility] [address] | [phone] | | | | | [place] | | | | | | [address] | Kirk French | | | | | [phone] | MD Eva Guidry | | | | | | [address] [place], | | | | | | [place] [address] | | | | | | [phone] | | | | | | | [...] + + + +---------+ + + | [place]-3 Fatty | CAPS, one capsule by | [...] | | | | | | [place] [address] | | | | | | [phone] | | | | | | | | +--------+ + + + + | 11/20/ | Implant | Cardiology | Daljit Singletary, | Remote Device | | 2018 | Monitor | | [facility] | Interrogation | | | | | [place], | (Primary Dx); | | | | | [place] [address] | Presence of | | | | | [phone] | permanent cardiac | | | | [...]
--- OUTSIDE RECORDS SUMMARY | ~2019-10-27 | XMS | Encounter Summary ---
Demographics + + + | Address | [address] | | | [place] [address] | + + + | Home Phone [...] Providers + +------+ + | Care Customer Assistance Associate Name | Role | Phone | [...] + + | 02/21/ | Office | [facility] | [place], | Coronary artery | | 2019 | Visit | CARDIOLOGY [address] | [place] [address] | disease involving | | | | [place], | [place], | [place] coronary | | | | [place] [address] | [place] [address] | artery of [place] | | | | [phone] | [phone] | heart without angina | | | [...] of non-critical coronary artery d isease involving [place] coronary artery of [place] heart without angina pectoris, essential h ypertension, [...] stay active. He enjoys hunting in his [place]. He has not had any [...] Preventative health care Coronary artery disease involving [place] coronary artery of [place] heart without angina pectoris Cannabis abuse, daily [...] 3RD DOSE, CALL 911 100 tablet 3 [place]-3 Fatty Acids (SALMON OIL-1000 PO) CAPS, one capsule by mouth daily twice daily ondansetron (ZOFRAN ODT) 4 mg disintegrating tablet Take 4 mg by mouth. ONE TOUCH DELICA LANCETS [facility] Check glucose as needed for hypoglycemia 100 [...] was found Confirmed by ANGELA MARADIAGA MD ([id number]) on 01/03/2019 8:10:39 PM LAB RESULTS reviewed during visit today primarily from [facility]: LIPID Lab Results Component Value Date TRIG [...] BNP 15 01/02/2019 I reviewed records from [facility] for angiogram results on 019 which is summarized in the HPI. RESULTS- I reviewed reports from [facility]: No results found. Left heart catheterization done [...] ASSESSMENT: 1. Non-critical Coronary artery disease involving [place] coronary artery of [place] heart [facility] angina pectoris: A.Normal exercise sestamibi stress [...] Symptoms with moderate exertion of t he [place] Heart Ass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 Heart failure stage [...] performed by Dr Juan Diego Gambino at [facility] on 01/30/2013.Patient had spontaneous PVC's fro m [...] of presyncope [facility] thought to have vasovagal symptoms. B. Today, [...] this chart may have been created with [employer] voice recognition software. Occasi onal wrong-word or [...] [place], | | | | | | [place] [address] | | | | | | [phone] | | | | | | | | +--------+ + + + + | 11/20/ | Implant | Cardiology | Daljit Singletary, | Remote Device | | 2018 | Monitor | | MD [address] [place] [address] | Interrogation | | | | | [place], | (Primary Dx); | | | | | [place] [address] | Presence of | | | | | [phone] | permanent cardiac | | | | [...]
--- OUTSIDE RECORDS SUMMARY | ~2019-10-27 | XMS | Encounter Summary ---
Demographics + + + | Address | [address] | | | [place] [address] | + + + | Home Phone [...] Providers + +------+ + | Care Commodity Director Name | Role | Phone | [...] | Palpitations | [address] | | | | | Procedures | [address] | Street [place] | | | | | ECHO | [place], | [place], [place] | | | | | Complete | [place] [address] | [address] | | | | | | Phone: | Phone: | | | | | | [phone] | [phone] | | | | | | Fax: | Fax: | | | | | | [phone] | [phone] | +--------+--------+ + + + + Encounter Details +--------+ + + + + | Date | Type | Department | Care Team | Description | +--------+ + + + + | 12/30/ | Hospital | [facility] | TimmyshaistateshaShaistatimmy, | Palpitations | | 2012 - | Encounter | MED CTR XRAY [address] | MD [address] | | | | | [address] [place] | [place], | | | 01/01/ | | [place] [address] | [place] [address] | | | 2012 | | [phone] | [phone] | | | | | | | [...] | | | | | | [place] [address] | | | | | | [phone] | | | | | | | | +--------+ + + + + | 11/20/ | Implant | Cardiology | Daljit Singletary, | Remote Device | | 2019 | Monitor | | [address] | Interrogation | | | | | [place], | (Primary Dx); | | | | | [place] [address] | Presence of | | | | | [phone] | permanent cardiac | | | | [...] | [facility] | [place] | | Department [address] [facility] | [facility] | | [ rep ct street1[address]2] [ rep ct [facility] | | st zip] Signed | - IMAGING | | | | | Patient Name: MOE GAY W | | | Physician: MIGUELINA : 1960 Age: 52 Sex: M Unit | | | #: [id number] Exam Date: 12/30/12 Location: | | | G Report #: [id number] Page: | | | %(RAD)RES..mtdd.print.filter("pg") of %(RAD) | | | RES..mtdd.print.filter("tpg") | | | | | | Accession Number: [id number] | | | E C H O C A R D I O G R A P H Y R E P O R T | | | HEIGHT: 76" WEIGHT: 270# | | | TAKER OFF DRYING KILN: JAMEEL REFERRING DR: TIMMY DRAKE DR: | [...] | | | Transcribed Date/Time: 12/30/2012 16:34 Printed Circuit Photographer: | | | <<Signature on File>> | | | Daljit | | | MD CLEOPATRA Singletary FASE01/02/13 0955 <Electronically signed by | | | Daljit Singletary MD, [facility], FACP, FASE, FASNC> Rashadong | | | MD CLEOPATRA Singletary 12/30/12 1608 Printed Circuit Photographer: [employer] | | | [email or web address]/08/13 1634 Daljti Singletary MD FACC | | | FASE | | + + + + + + + + | Performing | Address | City/State/Zipcode | Phone Number | | Organization | | | | + + + + + | [facility] | [address] | [place] | [phone] | | [facility] | | [address] | | | - IMAGING | | | | + + + + + documented in this encounter Visit Diagnoses + + | Diagnosis | + + | Palpitations | + + documented in this encounter
--- OUTSIDE RECORDS SUMMARY | ~2019-10-27 | XMS | Encounter Summary ---
Demographics + + + | Address | [address] | | | [place] [address] | + + + | Home Phone [...] Team Providers + +------+ + | Care Medication Aid Name | Role | Phone | [...] | 04/24/ | Office | [facility] | [place], | Symptomatic PVCs | | 2012 | Visit | CARDIOLOGY [address] | [place] [address] | (Primary Dx); CAD; | | | | [place], | [place], | Hyperlipidemia; | | | | [place] [address] | [place] [address] | PACEMAKER, PERMANENT | | | | [phone] | [phone] | - [employer] | | | | [...] tablet by mouth Daily. 30 tablet 6 [place]-3 Fatty Acids (SALMON OIL-1000 PO) CAPS, one [...] Reviewed records from PCP and notes from [facility]. Assessment: 1. Symptomatic PVCs status post [...] to go back in 3 days to [place] for an attempt of ablation under general [...] He is upgraded to class I of [place] Heart Ass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 There are no [...] made to ensure accuracy; however, inadvertent computerized sports marketing specialist errors may be pre sent. documented in this encounter Plan of Treatment +--------+ + + + + | Date | Type | Specialty | Care Team | Description | +--------+ + + + + | 11/09/ | Office | Cardiology | [place], | | | 2018 | Visit | | [place] [address] | | | | | | [place], | | | | | | [place] [address] | | | | | | [phone] | | | | | | | | +--------+ + + + + | 11/20/ | Implant | Cardiology | Daljit Singletary, | Remote Device | | 2018 | Monitor | | MD Sim [facility] | Interrogation | | | | | [place], | (Primary Dx); | | | | | [place] [address] | Presence of | | | | | [phone] | permanent cardiac | | | | [...] Coronary atherosclerosis of unspecified type of vessel, ute or graft | + + | Hyperlipidemia Other and unspecified hyperlipidemia | + + | PACEMAKER, PERMANENT - [employer] 06/14/09GRANT Cardiac pacemaker in situ | + + documented in this encounter
--- OUTSIDE RECORDS SUMMARY | ~2019-10-27 | XMS | Encounter Summary ---
Demographics + + + | Address | [address] | | | [place] [address] | + + + | Home Phone [...] Team Providers + +------+ + | Care Still Worker Helper Name | Role | Phone [...] [place] | | | | | | [address] | | | | | | [phone] | | | +--------+ + + + [...] | | | | | | [place] [address] | | | | | | [phone] | | | | | | | | +--------+ + + + + | 11/20/ | Implant | Cardiology | Daljit Singletary, | Remote Device | | 2018 | Monitor | | [address] [facility] | Interrogation | | | | | [place], | (Primary Dx); | | | | | [place] [address] | Presence of | | | | | [phone] | permanent cardiac | | | | [...]
--- OUTSIDE RECORDS SUMMARY | ~2019-10-27 | XMS | Encounter Summary ---
Demographics + + + | Address | [address] | | | [place] [address] | + + + | Home Phone [...] Providers + +------+ + | Care Complaint Analyst Name | Role | Phone | [...] [address] | | | | [place], | [place], | | | | | [place] [address] | [place] [address] | | | | | [phone] | [phone] | | | | | | | [...] | | | | | | [place] [address] | | | | | | [phone] | | | | | | | | +--------+ + + + + | 11/20/ | Implant | Cardiology | Daljit Singletary, | Remote Device | | 2018 | Monitor | | MD [address] | Interrogation | | | | | [address], | (Primary Dx); | | | | | [place] [address] | Presence of | | | | | [phone] | permanent cardiac | | | | [...]
--- OUTSIDE RECORDS SUMMARY | ~2019-10-27 | XMS | Encounter Summary ---
Demographics + + + | Address | [address] | | | [place] [address] | + + + | Home Phone [...] Team Providers + +------+ + | Care Lithographer Apprentice Name | Role | Phone | [...] Refill | | 2013 | | [facility]IC[facility] | DO [address] | | | | | [address] | [place] | | | | | [place] | [address] | | | | | [address] | | | | | | [phone] | | | +--------+--------+ + + + [...] W | | | | | | [place], | | | | | | [place] [address] | | | | | | [phone] | | | | | | | | +--------+ + + + + | 11/20/ | Implant | Cardiology | Daljit Singletary, | Remote Device | | 2018 | Monitor | | [address] [facility] | Interrogation | | | | | [place], | (Primary Dx); | | | | | [place] [address] | Presence of | | | | | [phone] | permanent cardiac | | | | [...]
--- OUTSIDE RECORDS SUMMARY | ~2019-10-27 | XMS | Encounter Summary ---
Demographics + + + | Address | [address] | | | [place] [address] | + + + | Home Phone [...] Providers + +------+ + | Care Tip Length Checker Name | Role | Phone | [...] | 06/22/ | Telephone | [facility] | Vasiliy Michael Kelsey, | Eye Problem | | 2012 | | [facility]IC[facility] [place] | DO [address] | | | | | [address] | [place] | | | | | [place] | [address] | | | | | [address] | | | | | | [phone] | | | +--------+ + + + [...] W | | | | | | [place], | | | | | | [place] [address] | | | | | | [phone] | | | | | | | | +--------+ + + + + | 11/20/ | Implant | Cardiology | Daljit Singletary, | Remote Device | | 2018 | Monitor | | [facility] | Interrogation | | | | | [place], | (Primary Dx); | | | | | [place] [address] | Presence of | | | | | [phone] | permanent cardiac | | | | [...]
--- OUTSIDE RECORDS SUMMARY | ~2019-10-27 | XMS | Encounter Summary ---
Demographics + + + | Address | [address] | | | [place] [address] | + + + | Home Phone [...] Team Providers + +------+ + | Care Cooperer Name | Role | Phone | + [...] 2019 | | GASTROENTEROLOGY | [address] [place] | Recommendations | | | | [address] [place] | [address] [place], [place] | | | | | [address] [place], [place] | [address] | | | | | [address] | | | | | | [phone] | | | +--------+ + + + [...] | | | | | | [place] [address] | | | | | | [phone] | | | | | | | | +--------+ + + + + | 11/20/ | Implant | Cardiology | Daljit Singletary, | Remote Device | | 2018 | Monitor | | [address] | Interrogation | | | | | [facility] [place], | (Primary Dx); | | | | | [place] [address] | Presence of | | | | | [phone] | permanent cardiac | | | | [...]
--- OUTSIDE RECORDS SUMMARY | ~2019-10-27 | XMS | Encounter Summary ---
Demographics + + + | Address | [address] | | | [place] [address] | + + + | Home Phone [...] Team Providers + +------+ + | Care Slack Line Yarder Name | Role | Phone | [...] + + | 06/25/ | Office | [facility] | [place], | SINUS BRADYCARDIA | | 2013 | Visit | CARDIOLOGY [address] | [place] [address] | (Primary Dx); | | | | [place], | [place], | Symptomatic PVCs; | | | | [place] [address] | [place] [address] | Coronary artery | | | | [phone] | [phone] | disease; | | | | | [...] time, he was admitted over observation at [facility] for a chest pain. Aortogram revealed an [...] for Chest pain. 25 tablet 12 [place]-3 Fatty Acids (SALMON OIL-1000 PO) CAPS, one capsule by mouth daily twice daily ONE T[facility]CH [facility] [...] HGBEX 16.1 01/25/2014 I reviewed records from [facility] [...] cannot completely be ruled out. D. [facility] 12/25/13, shows non critical coronary artery [...] yard. He is in class I-II of [place] [employer] funct ional class. There are [...] to go back in 3 days to [place] for an attempt of ablation under [...] of [place] 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 There are no [...] made to ensure accuracy; however, inadvertent computerized thread weaver errors may be pre sent. Electronically signed [...] | | | | | | [place] [address] | | | | | | [phone] | | | | | | | | +--------+ + + + + | 11/20/ | Implant | Cardiology | Daljit Singletary, | Remote Device | | 2018 | Monitor | | [address] [place] | Interrogation | | | | | [place], | (Primary Dx); | | | | | [place] [address] | Presence of | | | | | [phone] | permanent cardiac | | | | [...] of unspecified type of vessel, | | tangirnaq or graft | + + | Hypertension Unspecified essential hypertension | + + | Syncope Syncope and collapse | + + | Hyperlipidemia Other and unspecified hyperlipidemia | + + documented in this encounter
--- OUTSIDE RECORDS SUMMARY | ~2019-10-27 | XMS | Encounter Summary ---
Demographics + + + | Address | [address] | | | [place] [address] | + + + | Home Phone [...] + +------+ + | Care Level Vial Inspector And Tester Name | Role | Phone [...] + + | 04/07/ | Telephone | [facility] | Matthew Uriarte | Medication Orders | | 2019 | | [address] | MD Tawanna [address] | (Medication ) | | | | [place], [place] | [place], [place] | | | | | [address] | [address] | | | | | [phone] | | | +--------+ + + + [...] | | | | | | [place] [address] | | | | | | [phone] | | | | | | | | +--------+ + + + + | 11/20/ | Implant | Cardiology | Daljit Singletary, | Remote Device | | 2018 | Monitor | | MD Chiquis [address]ro | Interrogation | | | | | [facility] [place], | (Primary Dx); | | | | | [place] [address] | Presence of | | | | | [phone] | permanent cardiac | | | | [...]
--- OUTSIDE RECORDS SUMMARY | ~2019-10-27 | XMS | Encounter Summary ---
Demographics + + + | Address | [address] [place] [address] | | | [place] [address] | + + + | Home Phone [...] [place] | | | | | [address] | | + + + + + Care Team Providers + +------+ + | Care Singe Winder Name | Role | Phone | [...] Yao | | | | | at [facility] | [facility] | | | | | [address] | [place] [address] | | | | | [facility] | | | | | | Mailcode: [id number] Yao | | | | | | Leobardo Pedraza | | | | | | [facility] | | | | | | [place] [address] | | | | | | [phone] | | | +--------+ + + + [...] view image for the detailed interpretation from [place] results. | CARDIOLOGY | + + + + + + + + | Performing | Address | City/State/Zipcode | Phone Number | | Organization | | | | + + + + + | [facility] | [address] | [place], [place] | | | CARDIOLOGY | [address] | [address] | | + + + + + documented in this encounter Visit Diagnoses Not on filedocumented in this encounter"
--- OUTSIDE RECORDS SUMMARY | ~2019-10-27 | XMS | Encounter Summary ---
Demographics + + + | Address | [address] | | | [place] [address] | + + + | Home Phone [...] Providers + +------+ + | Care Cell Tender Helper Name | Role | Phone | [...] | | | | CENTER [address] | [place], [place] | (Primary Dx) | | | | [place], [place] | [address] | | | | | [address] | | | | | | [phone] | | | +--------+ + + + [...] + + + +---------+ + + | [place]-3 Fatty | CAPS, one capsule by [...] W | | | | | | [place], | | | | | | [place] [address] | | | | | | [phone] | | | | | | | | +--------+ + + + + | 11/20/ | Implant | Cardiology | Daljit Singletary, | Remote Device | | 2018 | Monitor | | [address] [facility] | Interrogation | | | | | [place], | (Primary Dx); | | | | | [place] [address] | Presence of | | | | | [phone] | permanent cardiac | | | | [...] | mL/min/1.73m2 | MICHELLE | | | CHINESE | RATE,ESTIMATED | | MEDICAL | | | | mL/min/1.89d3Oyoj than | | CENTER - | | [...] ST. | [address] | [place] | [phone] | | [facility] | | [address] | | | - LABORATORY | | [...] | | | | ANGELA MARADIAGA MD ([id number]) | | | | | | on [...] | | | | | | [employer] | | | | | [...] ST. | [address] | [place], [place] | [phone] | | [facility] | | [address] | | | - LABORATORY | | [...] | [address] | [place], [place] | [phone] | | [facility] | | [address] | | | - LABORATORY | | [...]
--- OUTSIDE RECORDS SUMMARY | ~2019-10-27 | XMS | Encounter Summary ---
Demographics + + + | Address | [address] | | | [place] [address] | + + + | Home Phone [...] Providers + +------+ + | Care Digital Photographer Name | Role | Phone | [...] | | CARDIOLOGY [address] | Janeen BOOM CONVEYOR OPERATOR [address] | | | | | [place], | [place], | | | | | [place] [address] | [place] [address] | | | | | [phone] | [phone] | | | | | | | [...] 2018 | Visit | | [address] | | | | | | [place], | | | | | | [place] [address] | | | | | | [phone] | | | | | | | | +--------+ + + + + | 11/20/ | Implant | Cardiology | Daljit Singletary, | Remote Device | | 2018 | Monitor | | MD Chiquis Oro | Interrogation | | | | | [place], | (Primary Dx); | | | | | [place] [address] | Presence of | | | | | [phone] | permanent cardiac | | | | [...]
--- OUTSIDE RECORDS SUMMARY | ~2019-10-27 | XMS | Encounter Summary ---
Demographics + + + | Address | [address] | | | [place] [address] | + + + | Home Phone [...] Providers + +------+ + | Care Director Agricultural Services Name | Role | Phone | [...] Provider Unknown | | | | | [place], [place] | [phone] | | | | | [address] | | | | | | [phone] | | | +--------+ + + + [...] + + + +---------+ + + | [place]-3 Fatty | CAPS, one capsule by | [...] W | | | | | | [place], | | | | | | [place] [address] | | | | | | [phone] | | | | | | | | +--------+ + + + + | 11/20/ | Implant | Cardiology | Daljit Singletary, | Remote Device | | 2018 | Monitor | | MD [address] [place] | Interrogation | | | | | [place], | (Primary Dx); | | | | | [place] [address] | Presence of | | | | | [phone] | permanent cardiac | | | | [...]
--- OUTSIDE RECORDS SUMMARY | ~2019-10-27 | XMS | Encounter Summary ---
Demographics + + + | Address | [address] [place] [address] | | | [place] [address] | + + + | Home Phone [...] [place] | | | | | [address] | | + + + + + Care Team Providers + +------+ + | Care Weaving Machine Operator Name | Role | Phone [...] | | 2019 | | Center at [facility] [address] | [address] | | | | | [address] | [place], [place] | | | | | Mailcode: [place] | [address] | | | | | [facility] and | [phone] | | | | | [place] [address] | | | | | | [place], [place] | | | | | | [address] | | | | | | [phone] | | | +--------+ + + + [...]
--- OUTSIDE RECORDS SUMMARY | ~2019-10-27 | XMS | Encounter Summary ---
Demographics + + + | Address | [address] | | | [place] [address] | + + + | Home Phone [...] Team Providers + +------+ + | Care Vrt Mechanic Name | Role | Phone | + +------+ + | Michael Amanda DO | PCP | | + +------+ + Encounter Details +--------+ + + + + | Date | Type | Department | Care Team | Description | +--------+ + + + + | 11/03/ | Emergency | [facility] | Eliel [place], | Palpitations; | | 2013 - | | MEDICAL CENTER | MD Chiquis JOHNSON | Atypical chest pain | | | | EMERGENCY CENTER | [place] [facility] [place] | | | 11/04/ | | [address] | [address] | | | 2013 | | [place], [place] | | | | | | [address] | | | | | | [phone] | | | +--------+ + + + [...] | | | | | | [place] [address] | | | | | | [phone] | | | | | | | | +--------+ + + + + | 11/20/ | Implant | Cardiology | Daljit Singletary, | Remote Device | | 2019 | Monitor | | [facility] | Interrogation | | | | | [address], | (Primary Dx); | | | | | [place] [address] | Presence of | | | | | [phone] | permanent cardiac | | | | [...] CHEST 2 VIEW FRONTAL | | AND SPCNZAT8911/03/2014 11:56 PM History: 54 years. Male. Acute [...] EXTERNAL | | | | performed at [facility];888 | | LAB | | | | [address] [facility];[place], [place] | | | | | | [address] | | | | + + + + + -+ | RED CELL | 4.97Comment: Testing | 4.20 - 5.70 | EXTERNAL | | | COUNT | performed at [facility];888 | M/uL | LAB | | | | [address];[place] | | | | | | [address] | | | | + + + + + -+ | Hgb | 16.8Comment: Testing | 13.2 - 17.0 | EXTERNAL | | | | performed at [facility];888 | g/dL | LAB | | | | [address];[place] | | | | | | [address] | | | | + + + + + -+ | Hematocrit, | 48.2Comment: Testing | 39.0 - 50.0 % | EXTERNAL | | | POC | performed at [facility];888 | | LAB | | | | [address];[place] | | | | | | [address] | | | | + + + + + -+ | MCV | 97.1Comment: Testing | 80.0 - 100.0 fl | EXTERNAL | | | | performed at [facility];888 | | LAB | | | | [address];[place] | | | | | | [address] | | | | + + + + + -+ | MCH | 33.9Comment: Testing | 27.0 - 34.0 pg | EXTERNAL | | | | performed at [facility];888 | | LAB | | | | [address];[place] | | | | | | [address] | | | | + + + + + -+ | MCHC | 34.9Comment: Testing | 32.0 - 35.5 | EXTERNAL | | | | performed at [facility];888 | g/dL | LAB | | | | [address];[place] | | | | | | [address] | | | | + + + + + -+ | RDW-CV | 42.4Comment: Testing | 37 - 53 fl | EXTERNAL | | | | performed at [facility];888 | | LAB | | | | [address];[place] | | | | | | [address] | | | | + + + + + -+ | Platelet | 143 (L)Comment: Testing | 150 - 400 K/uL | EXTERNAL | | | Count | performed at [facility];888 | | LAB | | | Plasma | [address];[place] | | | | | | [address] | | | | + + + + + -+ | MPV | 9.0Comment: Testing | fl | EXTERNAL | | | | performed at [facility];888 | | LAB | | | | [address];[place] | | | | | | [address] | | | | + + + + + -+ | Differentia | AUTOMATEDComment: | | EXTERNAL | | | l Type | Testing performed at | | LAB | | | | [facility];[address];[place] [address] | | | | + + + + + -+ | % Segmented | 61.6Comment: Testing | % | EXTERNAL | | | | performed at [facility];888 | | LAB | | | Neutrophils | [address];[place] | | | | | | [address] | | | | + + + + + -+ | % | 27.8Comment: Testing | % | EXTERNAL | | | Lymphocytes | performed at [facility];888 | | LAB | | | | [address];[place] | | | | | | [address] | | | | + + + + + -+ | % Monocytes | 8.7Comment: Testing | % | EXTERNAL | | | | performed at [facility];888 | | LAB | | | | [address];[place] | | | | | | [address] | | | | + + + + + -+ | % | 0.8Comment: Testing | % | EXTERNAL | | | Eosinophils | performed at [facility];888 | | LAB | | | | [address];[place] | | | | | | [address] | | | | + + + + + -+ | % Basophils | 1.1Comment: Testing | % | EXTERNAL | | | | performed at [facility];[address] | | LAB | | | | [address];[place] | | | | | | [address] | | | | + + + + + -+ | Absolute | 5.4Comment: Testing | 1.9 - 7.4 K/uL | EXTERNAL | | | Segmented | performed at [facility];888 | | LAB | | | Neutrophils | [address];[place] | | | | | | [address] | | | | + + + + + -+ | Absolute | 2.4Comment: Testing | 1.0 - 3.9 K/uL | EXTERNAL | | | Lymphocytes | performed at [facility];888 | | LAB | | | | [address];[place] | | | | | | [address] | | | | + + + + + -+ | Absolute | 0.8Comment: Testing | 0 - 0.8 K/uL | EXTERNAL | | | Monocytes | performed at [facility];888 | | LAB | | | | [address];[place] | | | | | | [address] | | | | + + + + + -+ | Absolute | 0.1Comment: Testing | 0 - 0.5 K/uL | EXTERNAL | | | Eosinophils | performed at [facility];[address] | | LAB | | | | [address];[place] | | | | | | [address] | | | | + + + + + -+ | Absolute | 0.1Comment: Testing | 0 - 0.1 K/uL | EXTERNAL | | | Basophils | performed at [facility];888 | | LAB | | | | [address];[place] | | | | | | [address] | | | | + + + + + -+ | RBC | SLIDE SCANNED, AGREES | | EXTERNAL | | | Morphology | WITH AUTOMATED | | LAB | | | | RESULTS.Comment: Testing | | | | | | performed at [facility];[address] | | | | | | [address];[place] | | | | | | [address] | | | | + + + + + -+ | Na | 140Comment: Testing | 135 - 143 | EXTERNAL | | | | performed at [facility];888 | mmol/L | LAB | | | | [address];[place] | | | | | | [address] | | | | + + + + + -+ | K | 3.9Comment: Testing | 3.5 - 4.9 | EXTERNAL | | | | performed at [facility];888 | mmol/L | LAB | | | | [address];[place] | | | | | | [address] | | | | + + + + + -+ | Cl | 107Comment: Testing | 99 - 109 mmol/L | EXTERNAL | | | | performed at [facility];888 | | LAB | | | | [address];[place] | | | | | | [address] | | | | + + + + + -+ | CO2 | 28Comment: Testing | 23 - 32 mmol/L | EXTERNAL | | | | performed at [facility];888 | | LAB | | | | [address];[place] | | | | | | [address] | | | | + + + + + -+ | Anion Gap | 9Comment: Testing | 5 - 20 mmol/L | EXTERNAL | | | | performed at [facility];888 | | LAB | | | | [address];[place] | | | | | | [address] | | | | + + + + + -+ | Glucose, | 97Comment: Testing | 65 - 99 mg/dL | EXTERNAL | | | Fasting | performed at [facility];888 | | LAB | | | | [address];[place] | | | | | | [address] | | | | + + + + + -+ | BUN | 14Comment: Testing | 8 - 25 mg/dL | EXTERNAL | | | | performed at [facility];888 | | LAB | | | | [address];[place] | | | | | | [address] | | | | + + + + + -+ | Creatinine | 0.98Comment: Testing | 0.70 - 1.30 | EXTERNAL | | | | performed at [facility];888 | mg/dL | LAB | | | | [address];[place] | | | | | | [address] | | | | + + + + + -+ | BUN/Creatin | 14Comment: Testing | | EXTERNAL | | | ine Ratio | performed at [facility];888 | | LAB | | | | [address];[place] | | | | | | [address] | | | | + + + + + -+ | Calcium | 8.8Comment: Testing | 8.5 - 10.2 | EXTERNAL | | | | performed at [facility];888 | mg/dL | LAB | | | | [address];[place] | | | | | | [address] | | | | + + + + + -+ | Protein, | 6.9Comment: Testing | 6.3 - 8.2 g/dL | EXTERNAL | | | Total | performed at [facility];[address] | | LAB | | | | [address];[place] | | | | | | [address] | | | | + + + + + -+ | Albumin | 3.7Comment: Testing | 3.6 - 5.0 g/dL | EXTERNAL | | | | performed at [facility];888 | | LAB | | | | [address];[place] | | | | | | [address] | | | | + + + + + -+ | Globulin | 3.2Comment: Testing | 1.3 - 4.9 g/dL | EXTERNAL | | | | performed at [facility];888 | | LAB | | | | [address];[place] | | | | | | [address] | | | | + + + + + -+ | A/G Ratio | 1.2Comment: Testing | 1.0 - 2.4 | EXTERNAL | | | | performed at [facility];888 | | LAB | | | | [address];[place] | | | | | | [address] | | | | + + + + + -+ | Bilirubin | 0.9Comment: Testing | 0.1 - 1.5 mg/dL | EXTERNAL | | | Total | performed at [facility];888 | | LAB | | | | [address];[place] | | | | | | [address] | | | | + + + + + -+ | ALP, | 60Comment: Testing | 35 - 115 U/L | EXTERNAL | | | External | performed at [facility];[address] | | LAB | | | | [address];[place] | | | | | | [address] | | | | + + + + + -+ | AST | 22Comment: Testing | 10 - 45 U/L | EXTERNAL | | | | performed at [facility];888 | | LAB | | | | [address];[place] | | | | | | [address] | | | | + + + + + -+ | ALT | 37Comment: Testing | 10 - 65 U/L | EXTERNAL | | | | performed at [facility];888 | | LAB | | | | [address];[place] | | | | | | [address] | | | | + + + [...] | | | | | | at [facility];[address] [facility] | | | | | | Blvd;[place] [address] | | | | + + + + + -+ | CK, Total | 103Comment: Testing | 55 - 400 U/L | EXTERNAL | | | | performed at [facility];[address] | | LAB | | | | [facility] [address];[place], [place] | | | | | | [address] | | | | + + + [...] | | | | | performed at [facility];[address] | | | | | | [address];[place] | | | | | | [address] | | | | + + + + + -+ | aPTT, | 26Comment: Testing | 23 - 32 seconds | EXTERNAL | | | Patient | performed at [facility];888 | | LAB | | | | [address];[place] | | | | | | [address] | | | | + + + + + -+ | CK-MB | 2.9Comment: Testing | 0.5 - 3.6 ng/mL | EXTERNAL | | | | performed at [facility];[address] | | LAB | | | | [address];[place] | | | | | | [address] | | | | + + + [...] EXTERNAL | | | | performed at [facility];[address] | uIU/mL | LAB | | | | [address];[place], [place] | | | | | | [id number] | | | | + + + [...] EXTERNAL | | | | performed at [facility];[address] | | LAB | | | | [address];[place] | | | | | | [id number] | | | | + + + [...] EXTERNAL | | | | performed at [facility];[address] | | LAB | | | | [address];[place], [place] | | | | | | [id number] | | | | + + + [...]
--- OUTSIDE RECORDS SUMMARY | ~2019-10-27 | XMS | Encounter Summary ---
Demographics + + + | Address | [address] | | | [place] [address] | + + + | Home Phone [...] Providers + +------+ + | Care Assistant Analyst Name | Role | Phone | [...] unspecified | [address] | [address] | | | | | type | [address] | [place], | | | | | Procedures | [place], | [place] | | | | | [place] | [place] [address] | [address] | | | | | Stress Test | Phone: | Phone: | | | | | (Vasodilator | [phone] | [phone] | | | | | ) CHG | Fax: | Fax: | | | | | MYOCARDIAL | [phone] | [phone] | | | | | SPECT | [...] unspecified | [address] | [address] | | | | | type | [address] | [place], | | | | | Procedures | [place], | [place] | | | | | [place] | [place] [address] | [address] | | | | | Stress Test | Phone: | Phone: | | | | | (Vasodilator | [phone] | [phone] | | | | | ) CHG | Fax: | Fax: | | | | | MYOCARDIAL | [phone] | [phone] | | | | | SPECT | [...] + + | 07/21/ | Hospital | [facility] | Daljit Singletary, | Chest pain, | | 2018 | Encounter | MED CTR NUCLEAR | MD [address] | unspecified type | | | | MEDICINE [address] | [place], | | | | | [place], | [place] [address] | | | | | [place] [address] | [phone] | | | | | [phone] | | | | | | | Senior Project ManagerPavel | | +--------+ + + + [...] + + + +---------+ + + | Rising [place]-3 Fatty | CAPS, one capsule by | [...] | | | | | | [place] [address] | | | | | | [phone] | | | | | | | | +--------+ + + + + | 11/20/ | Implant | Cardiology | Daljit Singletary, | Remote Device | | 2019 | Monitor | | [address] [facility] | Interrogation | | | | | [place], | (Primary Dx); | | | | | [place] [address] | Presence of | | | | | [phone] | permanent cardiac | | | | [...] | | | | | doctor, Starting [facility] 07/21/18 at | | | | [...] | | | | | | Starting [facility] 07/21/18 at 0822, For | | | | | | | 1 dose, Nuclear Medicine | | | | | | + +-------+ + +---+---+ +---+---+ | | | +---+---+ documented in this encounter"
--- OUTSIDE RECORDS SUMMARY | ~2019-10-27 | XMS | Encounter Summary ---
Demographics + + + | Address | [address] | | | [place] [address] | + + + | Home Phone [...] Providers + +------+ + | Care Nurse Navigator Name | Role | Phone | [...] | | | CENTER [address] | [place] | (Primary Dx) | | 07/28/ | | [place] | [address] | | | 2017 | | [address] | | | | | | [phone] | | | +--------+ + + + [...] sent through Care Everywhere.Chest Pain, Non cardiac (Sammarinese)documented in this encounter Medications at Time [...] + + + +---------+ + + | [place]-3 Fatty | CAPS, one capsule by | [...] | | | | | | [place] [address] | | | | | | [phone] | | | | | | | | +--------+ + + + + | 11/20/ | Implant | Cardiology | Daljit Singletary, | Remote Device | | 2018 | Monitor | | MD [address] [place] [address] | Interrogation | | | | | [place], | (Primary Dx); | | | | | [place] [address] | Presence of | | | | | [phone] | permanent cardiac | | | | [...] W?MRN: | | | | | | [id number] | | | [id number] | | | his | | | [...] | | | ent/60 | | | [id number] | | | -5586- | | | [...] | | St. | | | [facility] | | | y | | | [...] | | | ext. | | | [address] | | | or go | | [...] | | | M.D. | | | Intern Product Marketing Manager | | | al | | [...] | [facility] | [address] | [place] | [phone] | | [facility] | | [address] | | | - LABORATORY | | [...] [facility] | | | [place] | RATE,ESTIMATED | | MEDICAL | | | | mL/min/1.22n0Lgjp than | | CENTER - | | [...] [address] | [place] | [phone] | | [facility] | | [address] | | | - LABORATORY | | [...] + | [facility] | [address] | [place] | [phone] | | [facility] | | [address] | | | - LABORATORY | | [...] | | | | ANGELA MARADIAGA MD ([id number]) | | | | | | on [...]
--- OUTSIDE RECORDS SUMMARY | ~2019-10-27 | XMS | Encounter Summary ---
Demographics + + + | Address | [address] | | | [place] [address] | + + + | Home Phone [...] Providers + +------+ + | Care Vocational Rehabilitation Administrator Name | Role | Phone | + +------+ + PCP | Unavailable | + +------+ + Encounter Details +--------+ + + + + | Date | Type | Department | Care Team | Description | +--------+ + + + + | 06/25/ | [facility] | [facility] | Daljit Singletary, | | | 2008 | Encounter | MED CTR XRAY [address] | [address] [place] | | | | | [place] | [place], | | | | | [place] [address] | [place] [address] | | | | | [phone] | [phone] | | | | | | | [...] | | | | | | [place], | | | | | | [place] [address] | | | | | | [phone] | | | | | | | | +--------+ + + + + | 11/20/ | Implant | Cardiology | Daljit Singletary, | Remote Device | | 2019 | Monitor | | MD [address] | Interrogation | | | | | [place], | (Primary Dx); | | | | | [place] [address] | Presence of | | | | | [phone] | permanent cardiac | | | | [...]
--- OUTSIDE RECORDS SUMMARY | ~2019-10-27 | XMS | Encounter Summary ---
Demographics + + + | Address | [address] | | | [place] [address] | + + + | Home Phone [...] Team Providers + +------+ + | Care Serials Librarian Name | Role | Phone | [...] + | 09/01/ | Telephone | [facility] | Silvia, | Appointment | | 2016 | | CARDIOLOGY [address] | [place] [address] | (Reschedule) | | | | [place], | [place], | | | | | [place] [address] | [place] [address] | | | | | [phone] | [phone] | | | | | | | [...] | | | | | | [place] [address] | | | | | | [phone] | | | | | | | | +--------+ + + + + | 11/20/ | Implant | Cardiology | Daljit Singletary, | Remote Device | | 2018 | Monitor | | [address] [place] | Interrogation | | | | | [place], | (Primary Dx); | | | | | [place] [address] | Presence of | | | | | [phone] | permanent cardiac | | | | [...]
--- OUTSIDE RECORDS SUMMARY | ~2019-10-27 | XMS | Encounter Summary ---
Demographics + + + | Address | [address] | | | [place] [address] | + + + | Home Phone [...] Providers + +------+ + | Care Multiple Tube Winding Machine Operator Name | Role | [...] + | 06/24/ | Telephone | [facility] | Daljit Singletary, | Lab Order | | 2017 | | CARDIOLOGY [address] | MD [address] [place] | | | | | [place], | [place], | | | | | [place] [address] | [place] [address] | | | | | [phone] | [phone] | | | | | | | [...] | | | | | | [place] [address] | | | | | | [phone] | | | | | | | | +--------+ + + + + | 11/20/ | Implant | Cardiology | Daljit Singletary, | Remote Device | 2018 | Monitor | | [facility] | Interrogation | | | | | 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
--- OUTSIDE RECORDS SUMMARY | ~2019-10-27 | XMS | Encounter Summary ---
Demographics + + + | Address | [address] | | | [place] [address] | + + + | Home Phone [...] Providers + +------+ + | Care Senior Security Analyst Name | Role | Phone | + +------+ + PCP | Unavailable | + +------+ + Encounter Details +--------+ + + + + | Date | Type | Department | Care Team | Description | +--------+ + + + + | 02/01/ | [facility] | [facility] | Evan Gandara MD | | | 2008 - | Encounter | MED CTR MED ONC | [address] [facility] | | | | | [address] [place] | [place] | | | 02/06/ | | [place] [address] | [address] | | | 2008 | | [phone] | | | +--------+ + + + [...] [place] | | | | | | [place] [address] | | | | | | [phone] | | | | | | | | +--------+ + + + + | 11/20/ | Implant | Cardiology | Daljit Singletary, | Remote Device | | 2019 | Monitor | | MD [address] | Interrogation | | | | | [place], | (Primary Dx); | | | | | [place] [address] | Presence of | | | | | [phone] | permanent cardiac | | | | [...]
--- OUTSIDE RECORDS SUMMARY | ~2019-10-27 | XMS | Encounter Summary ---
Demographics + + + | Address | [address] | | | [place] [address] | + + + | Home Phone [...] | Organization | [facility] | | | [...] Team Providers + +------+ + | Care Lockstitch Machine Operator Name | Role | Phone [...] [place] | | | | | | [address] | | | | | | [phone] | | | +--------+ + + + [...] | | | | | | [place], | | | | | | [place] [address] | | | | | | [phone] | | | | | | | | +--------+ + + + + | 11/20/ | Implant | Cardiology | Daljit Singletary, | Remote Device | | 2018 | Monitor | | [facility] | Interrogation | | | | | [place], | (Primary Dx); | | | | | [place] [address] | Presence of | | | | | [phone] | permanent cardiac | | | | [...]
--- OUTSIDE RECORDS SUMMARY | ~2019-10-27 | XMS | Encounter Summary ---
Demographics + + + | Address | [address] | | | [place] [address] | + + + | Home Phone [...] Providers + +------+ + | Care Chief Medical Officer Name | Role | Phone | [...] | | | | Sinoatrial | Jose, WAREHOUSE INSULATION WORKER | [address] | | | | | node | [address] | [place], | | | | | dysfunction | [place] | [place] | | | | | (HCC) | [place] | [address] | | | | | Coronary | [address] | Phone: | | | | | artery | Phone: | [phone] | | | | | disease | [phone] | Fax: | | | | | involving | Fax: | [phone] | | | | | cherokee | [phone] | | | | | | coronary | | | | | | | artery of | | | | | | | cherokee heart | | | | | | [...] | | | | | | Complete IN | | | | | | | ECHO HEART | | | | | | | XTHORACIC,[place] | | | | | | | MPLETE W | | | | | | | DOPPLER IN | | | | | | [...] | Visit | CARDIOLOGY [address] | WAREHOUSE INSULATION WORKER [address] | dysfunction (HCC) | | | | [place], | [place], [place] | with symptomatic | | | | [place] [address] | [address] | bradycardia (Primary | | | | [phone] | | Dx); Coronary | | | | | | artery disease | | | | | | involving cherokee | | | | | | coronary artery of | | | | | | cherokee heart without | | | | | [...] Coronary artery disease involving cherokee coronary artery without angina pectoris Cannabis abuse, [...] 3rd dose, call 911 100 tablet 3 [place]-3 Fatty Acids (SALMON OIL-1000 PO) CAPS, [...] scanned Paceart documentation and device PDF in Splendia for interrogation (with progr amming changes) performed [...] to go back in 3 days to [place] for an attempt of ablation under general [...] I-II of [place] Heart Ass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 T here are [...] this chart may have been created with [employer] voice recognition software. Occasi onal wrong-word [...] | | | | | | [place] [address] | | | | | | [phone] | | | | | | | | +--------+ + + + + | 11/20/ | Implant | Cardiology | Sydni Singletary, | Remote Device | 2018 | Monitor | | MD Sim [facility] [place] | Interrogation | | | | | [place], | (Primary Dx); | | | | | [place] [address] | Presence of | | | | | [phone] | permanent cardiac | | | | [...] VICTOR HUGO | [facility] | | [place] Room Number SARAH Patient | [facility] | | [id number] Date of Study 06/16/2016 Number | - IMAGING | | Visit Number [id number] | | | Referring Physician HELLBERG JOSE Number Date of 1960 | | | Security Officer Supervisor LUIS FERNANDO DUARTE Age | | | 56 year(s) Interpreting | | | GURJIT TROY | | | Collar Stay Fuser Tender SYDNI SINGLETARY, | | | Gender | | | Male Nurse Procedure Type of Study TTE | | | procedure: ECHO Complete. Procedure dateDate: 06/16/2016Start: 10:55 | | | AM Technical Quality: Adequate visualizationStudy Location: Echo | | | LabIndications: CAD GAMBELL CORONARY ARTERY 414.01/ I25.10 and | | [...] BARRY Room Number SARAH | | Patient [id number] Date of Study 06/16/2016 Number Visit Number | | [id number] Referring Physician JOSE ARMANDO GARCIA Number | | Date of 1960 Security Officer Supervisor LUIS FERNANDO DUARTE Age | | 56 year(s) Interpreting GURJIT TROY | | Collar Stay Fuser Tender SYDNI SINGLETARY, | | Gender Male NurseProcedureType of Study TTE | | procedure: ECHO Complete.Procedure dateDate: 07/26/2016Start: 10:55 AMTechnical Quality: | | Adequate visualizationStudy Location: Echo LabIndications: CAD GAMBELL CORONARY ARTERY | | 414.01/ I25.10 and [...] ST[address] | [address] | [place] | [phone] | | [facility] | | [address] | | | - IMAGING | | [...] | | 2. Coronary artery disease involving cherokee coronary artery of | | | cherokee heart without angina pectoris I25.10 414.01 ECHO [...]
--- OUTSIDE RECORDS SUMMARY | ~2019-10-27 | XMS | Encounter Summary ---
Demographics + + + | Address | [address] | | | [place] [address] | + + + | Home Phone [...] Team Providers + +------+ + | Care Exploration Geologist Name | Role | Phone | + [...] | 03/02/ | Telephone | [facility] [place] | Daljit Singletary, | Other | | 2013 | | CARDIOLOGY [address] | MD [address] [place] | | | | | [place], | [place], | | | | | [place] [address] | [place] [address] | | | | | [phone] | [phone] | | | | | | | [...] | | | | | | [place] [address] | | | | | | [phone] | | | | | | | | +--------+ + + + + | 11/20/ | Implant | Cardiology | Daljit Singletary, | Remote Device | | 2018 | Monitor | | MD [address]iqu[address] | Interrogation | | | | | [place], | (Primary Dx); | | | | | [place] [address] | Presence of | | | | | [phone] | permanent cardiac | | | | [...]
--- OUTSIDE RECORDS SUMMARY | ~2019-10-27 | XMS | Encounter Summary ---
Demographics + + + | Address | [address] | | | [place] [address] | + + + | Home Phone [...] Team Providers + +------+ + | Care Veterinarian Assistant Name | Role | Phone | [...] + + | 05/14/ | Office | [facility] | [place], | Coronary artery | | 2013 | Visit | CARDIOLOGY [address] | [place] [address] | disease (Primary | | | | [place], | [place], | Dx); Hypertension; | | | | [place] [address] | [place] [address] | Hyperlipidemia; | | | | [phone] | [phone] | Syncope; Other chest | | | [...] needed for Chest pain. 25 tablet 12 [place]-3 Fatty Acids (SALMON OIL-1000 PO) CAPS, one [...] attenuation cannot completely be ruled out. [facility] 12/25/13, shows noncritical coronary artery disease, [...] exercising. He is in class II of [place] Heart Ass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 There are no [...] ventricular arrhythmia performed by [facility]. Patient had spontaneous PVCs from [...] to go back in 3 days to [place] for an attempt of ablation under general [...] palpitations.. He is in class II of [place] Heart Ass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 There are no [...] his blood pressure logs from [facility] 5. Lightheadedness and dizziness/ presyncope: A. [...] made to ensure accuracy; however, inadvertent computerized universal winding machine operator errors may be pre sent. [...] W | | | | | | [place], | | | | | | [place] [address] | | | | | | [phone] | | | | | | | | +--------+ + + + + | 11/20/ | Implant | Cardiology | Daljit Singletary, | Remote Device | | 2018 | Monitor | | [address] [place] | Interrogation | | | | | [place], | (Primary Dx); | | | | | [place] [address] | Presence of | | | | | [phone] | permanent cardiac | | | | [...] of unspecified type of | | vessel, nondalton or graft | + + | Hypertension Unspecified essential hypertension | + + | Hyperlipidemia Other and unspecified hyperlipidemia | + + | Syncope Syncope and collapse | + + | Other chest pain | + + | Chest pain Chest pain, unspecified | + + documented in this encounter
--- OUTSIDE RECORDS SUMMARY | ~2019-10-27 | XMS | Encounter Summary ---
Demographics + + + | Address | [address] | | | [place] [address] | + + + | Home Phone [...] Providers + +------+ + | Care Gas Plant Technician Name | Role | Phone [...] | CARDIOLOGY [address] | [address] [place] | (Primary Dx); | | | | [place], | [place], | Tachycardia; | | | | [place] [address] | [place] [address] | Coronary artery | | | | [phone] | [phone] | disease involving | | | | [...] | | | | | | [place], | | | | | | [place] [address] | | | | | | [phone] | | | | | | | | +--------+ + + + + | 11/20/ | Implant | Cardiology | Daljit Singletary, | Remote Device | | 2019 | Monitor | | MD [address] [place] | Interrogation | | | | | [place], | (Primary Dx); | | | | | [place] [address] | Presence of | | | | | [phone] | permanent cardiac | | | | [...] DALJIT | | | | | | ([id number]) on 06/29/2018 | | | | | [...]
--- OUTSIDE RECORDS SUMMARY | ~2019-10-27 | XMS | Encounter Summary ---
Demographics + + + | Address | [address] | | | [place] [address] | + + + | Home Phone [...] Providers + +------+ + | Care Major Gifts Director Name | Role | Phone | + +------+ + | Kirk French MD | PCP | | + +------+ + Encounter Details +--------+ + + + + | Date | Type | Department | Care Team | Description | +--------+ + + + + | 08/29/ | Hospital | [facility] | [place] | DVT (deep venous | | 2015 | Encounter | MED CTR ULTRASOUND | [place] [address] | thrombosis), | | | | [address] [place] | [place], | bilateral (HCC) | | | | [place], [place] | [place] [address] | | | | | [address] | [phone] | | | | | [phone] | | | +--------+ + + + [...] + + + +---------+ + + | Humphrey-3 Fatty | CAPS, one capsule by | [...] | | | | | | | #[id number], exp 07/2016 | | | | | [...] | | | | | | [place] [address] | | | | | | [phone] | | | | | | | | +--------+ + + + + | 11/20/ | Implant | Cardiology | Daljit Singletary, | Remote Device | | 2018 | Monitor | | MD [address] | Interrogation | | | | | [place], | (Primary Dx); | | | | | [place] [address] | Presence of | | | | | [phone] | permanent cardiac | | | | [...] the groin through the popliteal fossa | [facility] | | in both lower [...] conveyed to the ordering provider, by the beauty shop manager, | | | immediately following the exam. [...] to the ordering provider, by the | |beauty shop manager, immediately following the exam. | | | [...] [address] | [place] | [phone] | | [facility] | | [address] | | | - IMAGING | | | | + + + + + documented in this encounter Visit Diagnoses + + | Diagnosis | + + | DVT (deep venous thrombosis), bilateral | + + documented in this encounter"
--- OUTSIDE RECORDS SUMMARY | ~2019-10-27 | XMS | Encounter Summary ---
Demographics + + + | Address | [address] | | | [place] [address] | + + + | Home Phone [...] Providers + +------+ + | Care Facilities Technician Name | Role | Phone | [...] [address] | | | | | [place], | [place], | | | | | [place] [address] | [place] [address] | | | | | [phone] | [phone] | | | | | | | [...] W | | | | | | [place], | | | | | | [place] [address] | | | | | | [phone] | | | | | | | | +--------+ + + + + | 11/20/ | Implant | Cardiology | Daljit Singletary, | Remote Device | | 2018 | Monitor | | [address] [facility] | Interrogation | | | | | [place], | (Primary Dx); | | | | | [place] [address] | Presence of | | | | | [phone] | permanent cardiac | | | | [...]
--- OUTSIDE RECORDS SUMMARY | ~2019-10-27 | XMS | Encounter Summary ---
Demographics + + + | Address | [address] | | | [place] [address] | + + + | Home Phone [...] Providers + +------+ + | Care Systems Test Analyst Name | Role | Phone | [...] [place], [place] | | | | | [place] | | [address] Phone: | | | | | CYSTO/URETER | | [phone] | | | | | O | | Fax: | | | | | W/LITHOTRIPS | | [phone] | | | | | Y &INDWELL [...] + + | 04/13/ | Surgery | [facility] | Matthew Uriarte | Cystoscopy, Left | | 2018 | | MED CTR OR INTRA OP | Dahl, MD [address] | ureteroscopy with | | | | [address] | [place] | laser lithotripsy, | | | | [place] | [address] | Left ureteral stent | | | | [address] | | placement | | | | [phone] | | | +--------+---------+ + + + [...] Care Everywhere.Kidney Stones, Treating: Ureteroscopic Stone Removal (Algerian)Stents, Ureteral (Algerian)documented in this encounter Medications at Time of [...] + + + +---------+ + + | Emmet-3 Fatty | CAPS, one capsule by | [...] | | | | | | [place] [address] | | | | | | [phone] | | | | | | | | +--------+ + + + + | 11/20/ | Implant | Cardiology | Daljit Singletary, | Remote Device | | 2018 | Monitor | | [address] [facility] | Interrogation | | | | | [place], | (Primary Dx); | | | | | [place] [address] | Presence of | | | | | [phone] | permanent cardiac | | | | [...] [facility] | | | | | | at:[phone]. | | | | + + + [...] [address], | REFERENCE LAB | | [place], [place] [id number] Automatic Lathe Tender: Yeny Rios MD, Phone: | ARSH CASTANON | | [phone] | | + + + + + + + + | Performing | Address | City/State/Zipcode | Phone Number | | Organization | | | | + + + + + | REFERENCE LAB | [address] | [place] [address] | [phone] | | [facility] | [address] [...] [address] | [place] | [phone] | | [facility] | | [address] | | | - LABORATORY | | [...] ST. | [address] | [place], [place] | [phone] | | [facility] | | [address] | | | - LABORATORY | | [...] [address] | [place] | [phone] | | [facility] | | [address] | | | - LABORATORY | | [...] + | [address] | [address] | [place] | [phone] | | [facility] | | [address] | | | - LABORATORY | | [...] | 0.92 | 0.70 - 1.30 | [facility] | | | | | mg/dL | [facility] | | | | | | MEDICAL | | | | | | CENTER - | | | | | | LABORATORY | | + + + + + + | eGFR if not | >60Comment: GLOMERULAR | >=60 | [facility] | | | | FILTRATION | mL/min/1.73m2 | [facility] | | | BULGARIAN | RATE,ESTIMATED | | MEDICAL | | | | mL/min/1.36e7Fgnw than | | CENTER - | | [...] [address] | [place] | [phone] | | [facility] | | [address] | | | - LABORATORY | | [...] day), First | | | dose on [facility] 04/13/19 at 1400, | | | Start 8 hours after pre-op dose., | | | Post-op/Phase II | | + +---+ | | | + +---+ | albuterol 2.5 mg/3 mL nebulizer | | | solution 2.5 mg 2.5 mg, | | | Nebulization, ONCE PRN, Wheezing, | | | Starting [facility] 04/13/19 at 0917, | | | [...] HR < 40, | | | Starting [facility] 04/13/19 at 0917, For | | | 2 doses, May repeat one time | | | after 1 min., Recovery/Phase I | | + +---+ | | | + +---+ + +-------+ +--------+---+---+ | ciprofloxacin (CIPRO) tablet | Given | 04/13/20 | 500 mg | | | | 500 mg 500 mg, Oral, ONCE, [facility] | | 19 7:35 | | [...] glucose < 50, | | | Starting [facility] 04/13/19 at 0634, | | | [...] | | | | | | | cuwaek-nxd-tmyem use of at least | | | [...]
--- OUTSIDE RECORDS SUMMARY | ~2019-10-27 | XMS | Encounter Summary ---
Demographics + + + | Address | [address] | | | [place] [address] | + + + | Home Phone [...] Providers + +------+ + | Care Fire Pilot Name | Role | Phone | [...] Provider Unknown | | | | | [place], [place] | [phone] | | | | | [address] | | | | | | [phone] | | | +--------+ + + + [...] + + + +---------+ + + | Latta-3 Fatty | CAPS, one capsule by | [...] | | | | | | [place] [address] | | | | | | [phone] | | | | | | | | +--------+ + + + + | 11/20/ | Implant | Cardiology | Daljit Singletary, | Remote Device | | 2019 | Monitor | | [facility] | Interrogation | | | | | [place], | (Primary Dx); | | | | | [place] [address] | Presence of | | | | | [phone] | permanent cardiac | | | | [...]
--- OUTSIDE RECORDS SUMMARY | ~2019-10-27 | XMS | Encounter Summary ---
Demographics + + + | Address | [address] | | | [place] [address] | + + + | Home Phone [...] Providers + +------+ + | Care Instructor Industrial Design Name | Role | Phone | + +------+ + | Kirk French MD | PCP | | + +------+ + Encounter Details +--------+ + + + + | Date | Type | Department | Care Team | Description | +--------+ + + + + | 01/18/ | Hospital | [facility] | Conversion | Diagnosis unknown | | 2017 | Encounter | CONVERSION [address] | Transaction, | | | | | [address] | Provider Unknown | | | | | [place], [place] | [phone] | | | | | [address] | | | | | | [phone] | | | +--------+ + + + [...] | | | | | | [place] [address] | | | | | | [phone] | | | | | | | | +--------+ + + + + | 11/20/ | Implant | Cardiology | Daljit Singletary, | Remote Device | | 2019 | Monitor | | MD [facility] | Interrogation | | | | | [place], | (Primary Dx); | | | | | [place] [address] | Presence of | | | | | [phone] | permanent cardiac | | | | [...]
--- OUTSIDE RECORDS SUMMARY | ~2019-10-27 | XMS | Encounter Summary ---
Demographics + + + | Address | [address] | | | [place] [address] | + + + | Home Phone [...] Team Providers + +------+ + | Care Zoning Technician Name | Role | Phone | + +------+ + PCP | Unavailable | + +------+ + Encounter Details +--------+ + + + + | Date | Type | Department | Care Team | Description | +--------+ + + + + | 10/29/ | Hospital | [facility] | Pia Akhtar | | | 2003 | Encounter | CONVERSION [address] | MD [address] | | | | | [address] | [address] | | | | | [place] | [place] [address] | | | | | [address] | [phone] | | | | | [phone] | | | +--------+ + + + [...] | | | | | | [place] [address] | | | | | | [phone] | | | | | | | | +--------+ + + + + | 11/20/ | Implant | Cardiology | Daljit Singletary, | Remote Device | | 2019 | Monitor | | MD [address] | Interrogation | | | | | [address] [place], | (Primary Dx); | | | | | [place] [address] | Presence of | | | | | [phone] | permanent cardiac | | | | [...]
--- OUTSIDE RECORDS SUMMARY | ~2019-10-27 | XMS | Encounter Summary ---
Demographics + + + | Address | [address] | | | [place] [address] | + + + | Home Phone [...] Team Providers + +------+ + | Care Bomb Loader Name | Role | Phone | [...] | 07/30/ | Telephone | [facility] [place] [facility] | Michael Amanda, | Results | | 2013 | | MEDICINE [place] | DO [address] | | | | | [address] | [place] | | | | | [place] | [address] | | | | | [address] | | | | | | [phone] | | | +--------+ + + + [...] | | | | | | [place] [address] | | | | | | [phone] | | | | | | | | +--------+ + + + + | 11/20/ | Implant | Cardiology | Daljit Singletary, | Remote Device | | 2018 | Monitor | | MD [address] | Interrogation | | | | | [facility] [place], | (Primary Dx); | | | | | [place] [address] | Presence of | | | | | [phone] | permanent cardiac | | | | [...]
--- OUTSIDE RECORDS SUMMARY | ~2019-10-27 | XMS | Encounter Summary ---
Demographics + + + | Address | [address] | | | [place] [address] | + + + | Home Phone [...] Team Providers + +------+ + | Care Cone Machine Operator Name | Role | Phone | + +------+ + | Darion Holden DO | PCP | | + +------+ + Encounter Details +--------+ + + + + | Date | Type | Department | Care Team | Description | +--------+ + + + + | 08/05/ | Hospital | [facility] | Emmanuel Daniel MD | | | 2009 | Encounter | MED CTR XRAY [address] | [address] | | | | | [place] | [address] [place], [place] | | | | | [place] [address] | [address] | | | | | [phone] | | | +--------+ + + + [...] | | | | | | [place], | | | | | | [place] [address] | | | | | | [phone] | | | | | | | | +--------+ + + + + | 11/20/ | Implant | Cardiology | Daljit Singletary, | Remote Device | | 2018 | Monitor | | [address] | Interrogation | | | | | [place], | (Primary Dx); | | | | | [place] [address] | Presence of | | | | | [phone] | permanent cardiac | | | | [...]
--- OUTSIDE RECORDS SUMMARY | ~2019-10-27 | XMS | Encounter Summary ---
Demographics + + + | Address | [address] | | | [place] [address] | + + + | Home Phone [...] Providers + +------+ + | Care Gem Cutter Name | Role | Phone | + +------+ + PCP | Unavailable | + +------+ + Encounter Details +--------+ + + + + | Date | Type | Department | Care Team | Description | +--------+ + + + + | 04/23/ | Hospital | [facility] | | | | 2007 - | Encounter | MED CTR MED ONC | | | | | | [address] | | | | 04/24/ | | [place] [address] | | | | 2007 | | [phone] | | | +--------+ + + + [...] | | | | | | [place] [address] | | | | | | [phone] | | | | | | | | +--------+ + + + + | 11/20/ | Implant | Cardiology | Daljit Singletary, | Remote Device | | 2018 | Monitor | | [facility] | Interrogation | | | | | [place], | (Primary Dx); | | | | | [place] [address] | Presence of | | | | | [phone] | permanent cardiac | | | | [...]
--- OUTSIDE RECORDS SUMMARY | ~2019-10-27 | XMS | Clinical Summary ---
Demographics + + + | Address | [address] | | | [place] [address] | + + + | Home Phone [...] + +------+ + | Care Identity Management Consultant Name | Role | Phone [...] | | + + + +---------+------+------+-------+ | Newton-3 Fatty | CAPS, one capsule by | [...] | | | | | | | sycuan coronary | | | | | | | | artery of sycuan | | | | | | | [...] + + | Coronary artery disease involving sycuan coronary artery of | 12/21/2013 | | sycuan heart without angina pectoris | | + [...] | completely be ruled out.[facility] 12/25/13, shows non critical coronary [...] | | CT Angiogram chest w/constrast 05/26/14 [facility] | + + + + [...] by Dr. Gambino at [facility] on 01/30/2013. Patient had spontaneous [...] back in 3 days to | | [place] for an attempt of ablation under general [...] IMPLANTED GENERATOR | | Medtronic DDD [id number] 06/14/09 RV LEAD Medtronic Active | | Bipolar CapSureFix 4076 [id number] 06/14/09 A LEAD Medtronic | | Active Bipolar CapSurFix 4076 [id number] 06/14/09 | + + + +---+ | [...] | Heart Cath, 02/29/2012, LVEF is 65%, [facility] | | Nuclear Medicine Myocardial Gated Stress Test, 05/25/2009, EF 53 | | % during rest and 52% during stress. [facility], | | [place]Persantine Sestamibi Stress Test, 06/14/2008, LVEF is | | 60%, [facility] 12/25/13, shows noncritical | | [...] noted | | on [facility] from 2013, no EKG changes, [...] Telephone | Cardiology | Shanique Vega | | 2018 | | | PARISA [...] + + | Mother | | | MA | | | | (Age | | [...] | | | | | | [place] [address] | | | | | | [phone] | | | | | | | | +--------+ + + + + | 11/20/ | Implant | Cardiology | Daljit Singletary, | Remote Device | | 2018 | Monitor | | [facility] | Interrogation | | | | | [place], | (Primary Dx); | | | | | [place] [address] | Presence of | | | | | [phone] | permanent cardiac | | | | [...] Left: | CAMERON | | 09/27/ | [id number] | | - [id number]: | | [employer] | [employer] | | 2020 | / | | Qty: 1 on 04/13/2019 by | | | - [place] | | | /[id number] | | Matthew Uriarte MD at | | | | | | 57 | | [facility] | | | | | | | | [facility] | | | | | | [...] +--------+ +---------+--------+ | MEDICARE | MEDICA | [id number] | 01/21/20 | [phone] | | Medica | | | RE | | 01-Pre | 5 | | re | | | PART A | | sent | | | | | | AND B | | | | | | + +--------+ +--------+ +---------+--------+ | MEDICARE | MEDICA | [id number] | 01/21/20 | [phone] | | Medica | | | RE | | 01-Pre | 5 | | re | | | PART A | | sent | | | | | | AND B | | | | | | + +--------+ +--------+ +---------+--------+ | AARP | AARP | [id number] | | [phone] | | Indemn | | | MDCR | | 016-Pr | 0 | | ity | | | SUPPL | | esent | | | | + +--------+ +--------+ +---------+--------+ | AARP | AARP | [id number] | 11/22/19 | [phone] | | Indemn [...] Person | Self | [birth year] | [address] | | Kirk | cristo/Fam | | 1959 | [phone] | [place], [place] | | | roxanne | | | 8 (Home) | [address] | + +--------+ +--------+ + + | Moe Sanchez | Person | Self | [birth year] | | [address] | | Kirk | cristo/Per | | 1959 | [phone] | [place], [place] | | | roxanne | | | 8 ([place]) | [address] | + +--------+ +--------+ + + | Moe Sanchez | Third | Self | [birth year] | | [address] | | Kirk | Republican | | 1959 | [phone] | [place] | | | Liabil | | | 3 ([place]) | [address] | | | ity | | | | | + +--------+ +--------+ + + Advance Directives + + + + + | Type | Date Recorded | Patient | Explanation | | | | Sql Manager | | + + + + + | Power of | | | | | Site Planner | | | | + + + [...]
--- OUTSIDE RECORDS SUMMARY | ~2019-10-27 | XMS | Encounter Summary ---
Demographics + + + | Address | [address] | | | [place] [address] | + + + | Home Phone [...] Providers + +------+ + | Care Commercial Light Fixture Assembler Name | Role | Phone | + +------+ + PCP | Unavailable | + +------+ + Encounter Details +--------+ + + + + | Date | Type | Department | Care Team | Description | +--------+ + + + + | 09/12/ | Hospital | [facility] | | | | 1993 | Encounter | MED CTR EMERGENCY | | | | | | CENTER [address] | | | | | | [place] | | | | | | [address] | | | | | | [phone] | | | +--------+ + + + [...] | | | | | | [place] [address] | | | | | | [phone] | | | | | | | | +--------+ + + + + | 11/20/ | Implant | Cardiology | Daljit Singletary, | Remote Device | | 2018 | Monitor | | [facility] | Interrogation | | | | | [place], | (Primary Dx); | | | | | [place] [address] | Presence of | | | | | [phone] | permanent cardiac | | | | [...]
--- OUTSIDE RECORDS SUMMARY | ~2019-10-27 | XMS | Encounter Summary ---
Demographics + + + | Address | [address] | | | [place] [address] | + + + | Home Phone [...] + +------+ + | Care Territory Sales Representative Name | Role | Phone | + +------+ + PCP | Unavailable | + +------+ + Encounter Details +--------+ + + + + | Date | Type | Department | Care Team | Description | +--------+ + + + + | 12/16/ | Hospital | [facility] | | | | 2010 | Encounter | MED CTR LABORATORY | | | | | | [address] | | | | | | [place] | | | | | | [address] | | | | | | [phone] | | | +--------+ + + + [...] | | | | | | [place] [address] | | | | | | [phone] | | | | | | | | +--------+ + + + + | 11/20/ | Implant | Cardiology | Daljit Singletary, | Remote Device | | 2018 | Monitor | | 401 [facility] | Interrogation | | | | | [place], | (Primary Dx); | | | | | [place] [address] | Presence of | | | | | [phone] | permanent cardiac | | | | [...]
--- OUTSIDE RECORDS SUMMARY | ~2019-10-27 | XMS | Encounter Summary ---
Demographics + + + | Address | [address] | | | [place] [address] | + + + | Home Phone [...] Team Providers + +------+ + | Care Resist Coater Developer Name | Role | Phone | [...] 2012 | | CARDIOLOGY [address] | PLANNING DIRECTOR [address] [place] | to be referred | | | | [place], | [place], [place] | soon) | | | | [place] [address] | [address] | | | | | [phone] | | | +--------+ + + + [...] | | | | | | [place], | | | | | | [place] [address] | | | | | | [phone] | | | | | | | | +--------+ + + + + | 11/20/ | Implant | Cardiology | Daljit Singletary, | Remote Device | | 2018 | Monitor | | [address] [place] | Interrogation | | | | | [place], | (Primary Dx); | | | | | [place] [address] | Presence of | | | | | [phone] | permanent cardiac | | | | [...]
--- OUTSIDE RECORDS SUMMARY | ~2019-10-27 | XMS | Encounter Summary ---
Demographics + + + | Address | [address] | | | [place] [address] | + + + | Home Phone [...] + + | 12/23/ | Emergency | [facility] | Cristal Alexander, | Chronic neck pain; | | 2015 | | MEDICAL CENTER | DO [address] | Headache(784.0) | | | | EMERGENCY CENTER | [place] [address] | | | | | [address] | [phone] | | | | | [place], [place] | | | | | | [address] | | | | | | [phone] | | | +--------+ + + + [...] + + + +---------+ + + | Deltona-3 Fatty | CAPS, one capsule by | [...] | | | | | | | #[id number], exp 07/2016 | | | | | [...] | | | | | | [place] [address] | | | | | | [phone] | | | | | | | | +--------+ + + + + | 11/20/ | Implant | Cardiology | Daljit Singletary, | Remote Device | | 2018 | Monitor | | [facility] | Interrogation | | | | | [place], | (Primary Dx); | | | | | [place] [address] | Presence of | | | | | [phone] | permanent cardiac | | | | [...] Conversion - 07/07/2019 5:05 AM PDT PINA [id number] years MaleCT | | CERVICAL SPINE WO [...]
--- OUTSIDE RECORDS SUMMARY | ~2019-10-27 | XMS | Encounter Summary ---
Demographics + + + | Address | [address] | | | [place] [address] | + + + | Home Phone [...] Team Providers + +------+ + | Care Duplicate Maker Name | Role | Phone | [...] | | CARDIOLOGY [address] | SUPERVISOR RECEIVING AND PROCESSING [address] | | | | | [place], | [place], [place] | | | | | [place] [address] | [address] | | | | | [phone] | | | +--------+ + + + [...] [place], | | | | | | [place] [address] | | | | | | [phone] | | | | | | | | +--------+ + + + + | 11/20/ | Implant | Cardiology | Daljit Singletary, | Remote Device | | 2018 | Monitor | | MD [address] | Interrogation | | | | | [address] [place], | (Primary Dx); | | | | | [place] [address] | Presence of | | | | | [phone] | permanent cardiac | | | | [...]
--- OUTSIDE RECORDS SUMMARY | ~2019-10-27 | XMS | Encounter Summary ---
Demographics + + + | Address | [address] | | | [place] [address] | + + + | Home Phone [...] Providers + +------+ + | Care Principal Gifts Officer Name | Role | Phone [...] + | 01/02/ | Telephone | [facility] | Daljit Singletary, | Other (chest pain) | | 2018 | | CARDIOLOGY [address] | MD [address] | | | | | [place], | [place], | | | | | [place] [address] | [place] [address] | | | | | [phone] | [phone] | | | | | | | [...] W | | | | | | [place], | | | | | | [place] [address] | | | | | | [phone] | | | | | | | | +--------+ + + + + | 11/20/ | Implant | Cardiology | Daljit Singletary, | Remote Device | | 2018 | Monitor | | MD [facility] | Interrogation | | | | | [place], | (Primary Dx); | | | | | [place] [address] | Presence of | | | | | [phone] | permanent cardiac | | | | [...]
--- OUTSIDE RECORDS SUMMARY | ~2019-10-27 | XMS | Encounter Summary ---
Demographics + + + | Address | [address] | | | [place] [address] | + + + | Home Phone [...] Providers + +------+ + | Care Proof Carrier Name | Role | Phone | + +------+ + PCP | Unavailable | + +------+ + Encounter Details +--------+ + + + + | Date | Type | Department | Care Team | Description | +--------+ + + + + | 02/07/ | [facility] | [facility] | Unknown, | | | 1995 | Encounter | MED CTR XRAY [address] | MD Stefany | | | | | [address] | | | | | | [place] [address] | (Fax) | | | | | [phone] | | | +--------+ + + + [...] | | | | | | [place] [address] | | | | | | [phone] | | | | | | | | +--------+ + + + + | 11/20/ | Implant | Cardiology | Daljit Singletary, | Remote Device | | 2019 | Monitor | | 401 [facility] | Interrogation | | | | | [address] [place], | (Primary Dx); | | | | | [place] [address] | Presence of | | | | | [phone] | permanent cardiac | | | | [...]
--- OUTSIDE RECORDS SUMMARY | ~2019-10-27 | XMS | Encounter Summary ---
Demographics + + + | Address | [address] | | | [place] [address] | + + + | Home Phone [...] Team Providers + +------+ + | Care Encephalographer Name | Role | Phone | + [...] 2019 | | GASTROENTEROLOGY | [address], [place] | | | | | [address] [place] | [address] [place], [place] | | | | | [address] [place], [place] | [address] | | | | | [address] | | | | | | [phone] | | | +--------+ + + + [...] | | | | | | [place] [address] | | | | | | [phone] | | | | | | | | +--------+ + + + + | 11/20/ | Implant | Cardiology | Daljit Singletary, | Remote Device | | 2018 | Monitor | | MD [address] [place] [address] | Interrogation | | | | | [place], | (Primary Dx); | | | | | [place] [address] | Presence of | | | | | [phone] | permanent cardiac | | | | [...]
--- OUTSIDE RECORDS SUMMARY | ~2019-10-27 | XMS | Encounter Summary ---
Demographics + + + | Address | [address] | | | [place] [address] | + + + | Home Phone [...] Providers + +------+ + | Care Slot Manager Name | Role | Phone | [...] | | CARDIOLOGY [address] | [address] | | | | | [place], | [place], | | | | | [place] [address] | [place] [address] | | | | | [phone] | [phone] | | | | | | | [...] W | | | | | | [place], | | | | | | [place] [address] | | | | | | [phone] | | | | | | | | +--------+ + + + + | 11/20/ | Implant | Cardiology | Daljit Singletary, | Remote Device | | 2018 | Monitor | | [facility] | Interrogation | | | | | [place], | (Primary Dx); | | | | | [place] [address] | Presence of | | | | | [phone] | permanent cardiac | | | | [...]
--- OUTSIDE RECORDS SUMMARY | ~2019-10-27 | XMS | Encounter Summary ---
Demographics + + + | Address | [address] | | | [place] [address] | + + + | Home Phone [...] Team Providers + +------+ + | Care Surveillance Sensor Operator Name | Role | Phone | [...] Results | | 2013 | | MEDICINE [facility] | DO [address] | | | | | [address] | [place] | | | | | [place] | [address] | | | | | [address] | | | | | | [phone] | | | +--------+ + + + [...] | | | | | | [place] [address] | | | | | | [phone] | | | | | | | | +--------+ + + + + | 11/20/ | Implant | Cardiology | Daljit Singletary, | Remote Device | | 2018 | Monitor | | MD [address] | Interrogation | | | | | [place], | (Primary Dx); | | | | | [place] [address] | Presence of | | | | | [phone] | permanent cardiac | | | | [...]
--- OUTSIDE RECORDS SUMMARY | ~2019-10-27 | XMS | Encounter Summary ---
Demographics + + + | Address | [address] | | | [place] [address] | + + + | Home Phone [...] Providers + +------+ + | Care Clinical Athletic Instructor Name | Role | Phone | [...] | | CARDIOLOGY [address] | [address] [place] | | | | | [place], | [place], | | | | | [place] [address] | [place] [address] | | | | | [phone] | | | | | | | [...] | | | | | | [place] [address] | | | | | | [phone] | | | | | | | | +--------+ + + + + | 11/20/ | Implant | Cardiology | Daljit Singletary, | Remote Device | | 2019 | Monitor | | [facility] | Interrogation | | | | | [place], | (Primary Dx); | | | | | [place] [address] | Presence of | | | | | [phone] | permanent cardiac | | | | [...] + | [facility] | [address] | [place] | [phone] | | [facility] | | [address] | | | - LABORATORY | | | | + + + + + | [facility] | [address] | [place] | | | [facility] | | [address] | | | - LABORATORY | | [...]
--- OUTSIDE RECORDS SUMMARY | ~2019-10-27 | XMS | Encounter Summary ---
Demographics + + + | Address | [address] [place] [address] | | | [place] [address] | + + + | Home Phone [...] [place] | | | | | [address] | | + + + + + Care Team Providers + +------+ + | Care Management Coordinator Name | Role | [...] | Bradycardia | | | | [place], [place] | | | | | | [address] | | | | | | [phone] | | | +--------+------+ + + + [...] Way Lab) | [facility] | | [facility] [place] [address] | REGIONAL | | [place] [address] | LABORATORY | + + + + + + + + | Performing | Address | City/State/Zipcode | Phone Number | | Organization | | | | + + + + + | [facility] | [address] | [place] [address] | | | LABORATORY | | | [...] ([address] [facility]) | | | [facility] [address] | | | [place] [address] | | + + + + + + + + | Performing | Address | City/State/Zipcode | Phone Number | | Organization | | | | + + + + + | [facility] | [address] | [place] [address] | | | LABORATORY | | | [...] | | | DEPARTMENT | | | JAPANESE | | | OF | | | [...] DEPARTMENT OF | [address] | [place] [address] | | | PATHOLOGY | [address] | | | + + + + + documented in this encounter Visit Diagnoses + + | Diagnosis | + + | Chest pain Chest pain, unspecified | + + | Bradycardia Other specified cardiac dysrhythmias | + + documented in this encounter"
--- OUTSIDE RECORDS SUMMARY | ~2019-10-27 | XMS | Encounter Summary ---
Demographics + + + | Address | [address] | | | [place] [address] | + + + | Home Phone [...] Team Providers + +------+ + | Care Cras Name | Role | Phone | + [...] | disease) (Primary | | | | [place], | [place], | Dx); Other chest | | | | [place] [address] | [place] [address] | pain; Chest pain; | | | | [phone] | [phone] | Coronary artery | | | | [...] Sanchez Date: October 23, 2014 : 1960 Brusher Hand: Kailey Pruitt RN Device Automotive Services Manager: [employer] Sense (mV) Impedance (?) Capture (V) Capture (ms) A Lead 2.80-4.00 407 1.500 0.09 RV Lead 22.40-31.36 519 2.000 0.09 LV Lead Battery Impedance (?): 658 Battery Voltage (V): 2.79 RI Interval (ms): 155 AR Interval (ms): 240 VA Conduction: Mode Switch Events: 1 % of time: <0.1 -PRODUCT ADVISOR: <0.1% AP-PRODUCT ADVISOR: <0.1% -VS: 13.8% AP-VS: 86.1% PRODUCT ADVISOR: Magnetic Rate: 85 LINDA: 65 LEAH: Current [...] Kailey Pruitt RN 10/23/2014 15:22 ames Janeen, SUPERVISOR COIN MACHINE - 10/23/2014 2:22 PM PST PATIENT NAME: [...] for Chest pain. 25 tablet 12 [place]-3 Fatty Acids (SALMON OIL-1000 PO) CAPS, one [...] attenuation cannot completely be ruled out. [facility] 12/25/13, shows non critical [...] He is i n class I-II of [place] Heart Ass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 There are no [...] to go back in 3 days to [place] for an attempt of ablation under general [...] dizziness. He is in class I-II of [place] Heart Ass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 There are n [...] this chart may have been created with SANDOW voice recognition software. Occasi onal wrong-word or [...] | | | | | | [place] [address] | | | | | | [phone] | | | | | | | | +--------+ + + + + | 11/20/ | Implant | Cardiology | Anshushaistatesha Shaistaanshu, | Remote Device | | 2019 | Monitor | | [facility] | Interrogation | | | | | [place], | (Primary Dx); | | | | | [place] [address] | Presence of | | | | | [phone] | permanent cardiac | | | | [...] 23, 2014 : | | | 1960 Brusher Hand: Kailey Pruitt RN Device Automotive Services Manager: | | | Medtronic Sense (mV) Impedance (?) Capture (V) Capture (ms) A | | | Lead 2.80-4.00 407 1.500 0.09 RV Lead 22.40-31.36 519 2.000 0.09 | | | LV Lead Battery Impedance (?): 658 Battery Voltage (V): 2.79 | | | RI Interval (ms): 155 AR Interval (ms): 240 VA Conduction: Mode | | | Switch Events: 1 % of time: <0.1 -PRODUCT ADVISOR: <0.1% AP-PRODUCT ADVISOR: <0.1% -VS: | | | 13.8% AP-VS: 86.1% PRODUCT ADVISOR: Magnetic Rate: 85 LINDA: 65 LEAH: Current [...] | | Date: October 23, 2014DOB: 1960 Brusher Hand: Chikis Saule Automotive Services Manager: | | Medtronic Sense (mV) Impedance (?) Capture (V) Capture (ms) A Lead 2.80-4.00 407 1.500 | | 0.09 RV Lead 22.40-31.36 519 2.000 0.09 LV Lead Battery Impedance (?): 658 Battery | | Voltage (V): 2.79 RI Interval (ms): 155 AR Interval (ms): 240 VA Conduction: Mode | | Switch Events: 1 % of time: <0.1 -PRODUCT ADVISOR: <0.1% AP-PRODUCT ADVISOR: <0.1% -VS: 13.8% AP-VS: 86.1% PRODUCT ADVISOR: | | Magnetic Rate: 85 LINDA: 65 [...] of unspecified type | | of vessel, [place]sem[place] ind[place] tribe or graft | + + | Other chest pain | + + | Chest pain Chest pain, unspecified | + + | Coronary artery disease Coronary atherosclerosis of unspecified type of vessel, | | nansem[place] indian tribe or graft | + + | Pacemaker [...]
--- OUTSIDE RECORDS SUMMARY | ~2019-10-27 | XMS | Encounter Summary ---
Demographics + + + | Address | [address] | | | [place] [address] | + + + | Home Phone [...] Providers + +------+ + | Care Mobile Game Engineer Name | Role | Phone [...] [address] | | | | | [place], | [place], | | | | | [place] [address] | [place] [address] | | | | | [phone] | [phone] | | | | | | | [...] | | | | | | [place] [address] | | | | | | [phone] | | | | | | | | +--------+ + + + + | 11/20/ | Implant | Cardiology | Daljit Singletary, | Remote Device | | 2018 | Monitor | | [address] [place] | Interrogation | | | | | [place], | (Primary Dx); | | | | | [place] [address] | Presence of | | | | | [phone] | permanent cardiac | | | | [...]
--- OUTSIDE RECORDS SUMMARY | ~2019-10-27 | XMS | Encounter Summary ---
Demographics + + + | Address | [address] | | | [place] [address] | + + + | Home Phone [...] Team Providers + +------+ + | Care Club Lounge Attendant Name | Role | Phone | [...] + | 10/04/ | Telephone | [facility] | Daljit Singletary, | Other (Records sent) | | 2012 | | CARDIOLOGY [address] | MD [address] [place] | | | | | [place], | [place], | | | | | [place] [address] | [place] [address] | | | | | [phone] | [phone] | | | | | | | [...] | | | | | | [place] [address] | | | | | | [phone] | | | | | | | | +--------+ + + + + | 11/20/ | Implant | Cardiology | Daljit Singletary, | Remote Device | | 2018 | Monitor | | [facility] | Interrogation | | | | | [place], | (Primary Dx); | | | | | [place] [address] | Presence of | | | | | [phone] | permanent cardiac | | | | [...]
--- OUTSIDE RECORDS SUMMARY | ~2019-10-27 | XMS | Encounter Summary ---
Demographics + + + | Address | [address] | | | [place] [address] | + + + | Home Phone [...] Providers + +------+ + | Care Pediatric Lpn Name | Role | Phone | [...] + + | 08/29/ | Office | [facility] | [place]via, | Essential | | 2015 | Visit | CARDIOLOGY [address] | [place] [address] | hypertension | | | | [place], | [place], | (Primary Dx); | | | | [place] [address] | [place] [address] | Coronary artery | | | | [phone] | [phone] | disease involving | | | | | | tejon coronary | | | | | | [...] was seen in the emergency room at [facility] on 08/23/20 15 and the ER physician reviewed his chart saying that there were 2 ultrasounds from [facility] both of them are clear of DVT but reveal some venous insufficiency. Today, arian ent tells me that he started having swelling in both his feet within a week when he got to [facility]. He had extensive traveling. He [...] Preventative health care Coronary artery disease involving tejon coronary artery without angina pectoris Cannabis abuse, [...] mouth every evening. 90 tablet 3 [facility] Natural Products (OSTEO BI-FLEX/5-LOXIN ADVANCED PO) Take [...] 3rd dose, call 911 100 tablet 3 [place]-3 Fatty Acids (SALMON OIL-1000 PO) [...] Daily. to reduce urinary frequenc y Lot #[id number], exp 07/2016 (Patient taking differently: Take 8 mg by mouth Daily. PATIENT STA YOSELIN NO LONGER TAKING THIS MEDICATION. STATED ON 08/29/2015. to reduce urinary frequency Lot #[id number], exp 07/2016) 21 capsule 0 Specialty Vitamins [...] PLTEX 163 07/26/2014 I reviewed records from [facility] for emergency department visit o n [...] brought reports to the emergency room at [facility] and according to the not [...] to go back in 3 days to [place] for an attempt of ablation under general [...] dizziness. He is in class I-II of [place] Heart Ass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 T here are [...] this chart may have been created with FirstString voice recognition software. Occasi onal wrong-word or [...] W | | | | | | [place], | | | | | | [place] [address] | | | | | | [phone] | | | | | | | | +--------+ + + + + | 11/20/ | Implant | Cardiology | Sydni Singletary, | Remote Device | | 2019 | Monitor | | [address] [place] | Interrogation | | | | | [place], | (Primary Dx); | | | | | [place] [address] | Presence of | | | | | [phone] | permanent cardiac | | | | [...] the | | | | PDT | tejon coronary | results section. | | | [...] HISTORY: DVT. COMPARISON: None. TECHNIQUE: Compression | [facility] | | sonography was performed from the groin through the popliteal fossa | [facility] | | in both lower extremities.. [...] conveyed to the ordering provider, by the incinerator attendant, | | | immediately following the exam. [...] to the ordering provider, by the | |incinerator attendant, immediately following the exam. | | | [...] | [address] | [place] | [phone] | | [facility] | | [address] | | | - IMAGING | | [...] MD | | | | | | ([id number]) on 08/29/2015 | | | | | [...] + + | Coronary artery disease involving tejon coronary artery without angina pectoris | + + | DVT (deep venous thrombosis), bilateral | + + documented in this encounter
--- OUTSIDE RECORDS SUMMARY | ~2019-10-27 | XMS | Encounter Summary ---
Demographics + + + | Address | [address] | | | [place] [address] | + + + | Home Phone [...] Providers + +------+ + | Care Brand Manager Name | Role | Phone | + +------+ + PCP | Unavailable | + +------+ + Encounter Details +--------+ + + + + | Date | Type | Department | Care Team | Description | +--------+ + + + + | 12/16/ | [facility] | [facility] | Naresh Mckeon | | | 2010 | Encounter | MED CTR SLEEP | MD Chaya [address] | | | | | CENTER [address] | [address] [place] | | | | | [place] | [place] [address] | | | | | [address] | [phone] | | | | | [phone] | | | +--------+ + + + [...] | | | | | | [place] [address] | | | | | | [phone] | | | | | | | | +--------+ + + + + | 11/20/ | Implant | Cardiology | Daljit Singletary, | Remote Device | | 2019 | Monitor | | MD [address] | Interrogation | | | | | [place], | (Primary Dx); | | | | | [place] [address] | Presence of | | | | | [phone] | permanent cardiac | | | | [...]
--- OUTSIDE RECORDS SUMMARY | ~2019-10-27 | XMS | Encounter Summary ---
Demographics + + + | Address | [address] | | | [place] [address] | + + + | Home Phone [...] Providers + +------+ + | Care Concrete Boom Pump Operator Name | Role | Phone | + +------+ + PCP | Unavailable | + +------+ + Encounter Details +--------+ + + + + | Date | Type | Department | Care Team | Description | +--------+ + + + + | 01/17/ | [facility] | [facility] | Jonas Ramos, | | | 2009 | Encounter | MED CTR EMERGENCY | MD [address] | | | | | CENTER [address] | [facility] ER [place] | | | | | [place] | [place] [address] | | | | | [address] | [phone] | | | | | [phone] | | | +--------+ + + + [...] W | | | | | | [place], | | | | | | [place] [address] | | | | | | [phone] | | | | | | | | +--------+ + + + + | 11/20/ | Implant | Cardiology | Daljit Singletary, | Remote Device | | 2019 | Monitor | | MD Sim [facility] | Interrogation | | | | | [place], | (Primary Dx); | | | | | [place] [address] | Presence of | | | | | [phone] | permanent cardiac | | | | [...]
--- OUTSIDE RECORDS SUMMARY | ~2019-10-27 | XMS | Encounter Summary ---
Demographics + + + | Address | [address] | | | [place] [address] | + + + | Home Phone [...] Providers + +------+ + | Care Deputy Bailiff Name | Role | Phone | + [...] 2012 | | CARDIOLOGY [address] | SPRAY I PAINTER [address] | to be referred | | | | [place], | [place], [place] | soon) | | | | [place] [address] | [address] | | | | | [phone] | | | +--------+ + + + [...] W | | | | | | [place], | | | | | | [place] [address] | | | | | | [phone] | | | | | | | | +--------+ + + + + | 11/20/ | Implant | Cardiology | Daljit Singletary, | Remote Device | | 2018 | Monitor | | [address] [place] | Interrogation | | | | | [place], | (Primary Dx); | | | | | [place] [address] | Presence of | | | | | [phone] | permanent cardiac | | | | [...]
--- OUTSIDE RECORDS SUMMARY | ~2019-10-27 | XMS | Encounter Summary ---
Demographics + + + | Address | [address] | | | [place] [address] | + + + | Home Phone [...] Providers + +------+ + | Care Manager Style Name | Role | Phone | + [...] | | | | aortic | Janeen, CORPORATE TRAVEL AGENT | [place], | | | | | aneurysm | [address] | [place] [address] | | | | | (HCC) | [place] | Phone: | | | | | Abdominal | [place], | [phone] | | | | | aortic | [place] | Fax: | | | | | aneurysm | [address] | [phone] | | | | | (AAA) | Phone: | | | | | | without | [phone] | | | | | | rupture | Fax: | | | | | | (HCC) | [phone] | | | | | | Procedures [...] | | unspecified | MD Martell | [address] [place] [address] | | | | | type ER | [address] | [place] [address] | | | | | FUP | [place] | [place], | | | | | Procedures | [place], [place] | [place] [address] | | | | | FUP - SUW & | [address] | Phone: | | | | | MISHA PT, LAST | Phone: | [phone] | | | | | SEEN | [phone] | Fax: | | | | | 08-24-18 | Fax: | [phone] | | | | | | [phone] | | +--------+ + + + + + Encounter Details +--------+---------+ + + + | Date | Type | Department | Care Team | Description | +--------+---------+ + + + | 01/11/ | Office | [facility] | [place], | Coronary artery | | 2019 | Visit | CARDIOLOGY [address] | PARISA [place] [address] | disease involving | | | | [place], | [place], | [place] coronary | | | | [place] [address] | [place] [id number] | artery of [place] | | | | [phone] | [phone] | heart without angina | | | [...] encounter Patient Instructions Patient Instructions Christine Rodriguez, Cocktail Lounge Manager - 01/11/2019 12:45 PM PST 1. You [...] Check-in time: 1. Check in at the [facility]. 2. Do not [...] procedure. 6. Make sure you have a wheelchair driver to take you home. Your wheelchair driver will also need to sign you [...] hospital line at and ask for nursing senior manufacturing supervisor t o let them know you are cancelling . Blood test: Non-fasting Date Due: same day as CTA Where to go for labs: [facility]- [address] [facility] CTA of Chest and Abdomen: Date: Check-In [...] of non-critical coronary artery d isease involving [place] coronary artery of [place] heart without angina pectoris, essential h ypertension, [...] health care Coronary artery disease involving [place] coronary artery of [place] heart without angina pectoris Cannabis abuse, daily [...] 3RD DOSE, CALL 911 100 tablet 3 [place]-3 Fatty Acids (SALMON OIL-1000 PO) CAPS, one [...] was found Confirmed by ANGELA MARADIAGA MD ([id number]) on 01/03/2019 8:10:39 PM LAB RESULTS reviewed [...] the HPI. RESULTS- I reviewed reports from [facility]: Xr Chest Ap Portable Result Date: [...] ASSESSMENT: 1. Non-critical Coronary artery disease involving [place] coronary artery of [place] heart wi out angina pectoris: A. Normal [...] Symptoms with moderate exertion of t he [place] Heart Ass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 Heart failure stage [...] go back in 3 days t o [place] for an attempt of ablation under general [...] he has any further problems Christine Clemente Cocktail Lounge Manager am acting as a scribe on behalf of, and in the pres ence of PARISA Lomas. - Reji Newman 01/11/2019 13:46 IJaneen ARNP, personally performed the services described in this documentati on, as scribed in my presence and it is both accurate and complete. -PARISA Lomas 01/11/2019 Portions of this chart may have been created with Appography voice recognition software. Occasi onal wrong-word or [...] [place], | | | | | | [place] [id number] | | | | | | [phone] | | | | | | | | +--------+ + + + + | 11/20/ | Implant | Cardiology | Daljit Singletary, | Remote Device | 2018 | Monitor | | [address] [facility] | Interrogation | | | | | [place], | (Primary Dx); | | | | | [place] [id number] | Presence of | | | | | [phone] | permanent cardiac | | | | [...] + | Coronary artery disease involving [place] coronary artery of [place] heart without | | angina pectoris - [...]
--- OUTSIDE RECORDS SUMMARY | ~2019-10-27 | XMS | Encounter Summary ---
Demographics + + + | Address | [address] | | | [place] [address] | + + + | Home Phone [...] + | 03/24/ | Telephone | [facility] | [place], | Other (chest pain) | | 2018 | | CARDIOLOGY [address] | PARISA [place] [address] | | | | | [place], | [place], | | | | | [place] [address] | [place] [address] | | | | | [phone] | [phone] | | | | | | | [...] | | | | | | [place] [address] | | | | | | [phone] | | | | | | | | +--------+ + + + + | 11/20/ | Implant | Cardiology | Daljit Singletary, | Remote Device | | 2019 | Monitor | | MD [address] | Interrogation | | | | | [place], | (Primary Dx); | | | | | [place] [address] | Presence of | | | | | [phone] | permanent cardiac | | | | [...]
--- OUTSIDE RECORDS SUMMARY | ~2019-10-27 | XMS | Encounter Summary ---
Demographics + + + | Address | [address] | | | [place] [address] | + + + | Home Phone [...] Providers + +------+ + | Care Flower Stripper Name | Role | Phone | [...] 2016 | | CARDIOLOGY [address] | DATA TECHNICIAN [address] [place] | | | | | [place], | [place], [place] | | | | | [place] [address] | [address] | | | | | [phone] | | | +--------+--------+ + + + [...] W | | | | | | [place], | | | | | | [place] [address] | | | | | | [phone] | | | | | | | | +--------+ + + + + | 11/20/ | Implant | Cardiology | Daljit Singletary, | Remote Device | | 2018 | Monitor | | [address] | Interrogation | | | | | [place], | (Primary Dx); | | | | | [place] [address] | Presence of | | | | | [phone] | permanent cardiac | | | | [...]
--- OUTSIDE RECORDS SUMMARY | ~2019-10-27 | XMS | Encounter Summary ---
Demographics + + + | Address | [address] | | | [place] [address] | + + + | Home Phone [...] Providers + +------+ + | Care Water Pump Installer Name | Role | Phone | [...] 2019 | | GASTROENTEROLOGY | MD [address] | | | | | [address] | [place]. [place] | | | | | [address] [place] | [place] [address] | | | | | [address] | | | | | | [phone] | | | +--------+ + + + [...] W | | | | | | [place], | | | | | | [place] [address] | | | | | | [phone] | | | | | | | [...] Presence of | | | | | [phone] | permanent cardiac | | | | [...]
--- OUTSIDE RECORDS SUMMARY | ~2019-10-27 | XMS | Encounter Summary ---
Demographics + + + | Address | [address] | | | [place] [address] | + + + | Home Phone [...] Providers + +------+ + | Care Cutting And Creasing Press Operator Name | Role | Phone [...] Conversion | | | 2018 | | [facility] | Transaction, | | | | | PRIMARY CARE [address] | Provider Unknown | | | | | [address] | [phone] | | | | | [place] | | | | | | [address] | | | | | | [phone] | | | +--------+ + + + [...] W | | | | | | [place], | | | | | | [place] [address] | | | | | | [phone] | | | | | | | | +--------+ + + + + | 11/20/ | Implant | Cardiology | Daljit Singletary, | Remote Device | | 2018 | Monitor | | [address] [facility] | Interrogation | | | | | [place], | (Primary Dx); | | | | | [place] [address] | Presence of | | | | | [phone] | permanent cardiac | | | | [...]
--- OUTSIDE RECORDS SUMMARY | ~2019-10-27 | XMS | Encounter Summary ---
Demographics + + + | Address | [address] | | | [place] [address] | + + + | Home Phone [...] Providers + +------+ + | Care Complex Commercial Litigation Paralegal Name | Role | Phone [...] + + | 10/25/ | Telephone | [facility] | [place], | Other (patient has | | 2013 | | CARDIOLOGY [address] | Janeen COMMODITY SUPERVISOR [address] | changed his mind) | | | | [place], | [place], | | | | | [place] [address] | [place] [address] | | | | | [phone] | [phone] | | | | | | | [...] W | | | | | | [place], | | | | | | [place] [address] | | | | | | [phone] | | | | | | | | +--------+ + + + + | 11/20/ | Implant | Cardiology | Daljit Singletary, | Remote Device | | 2018 | Monitor | | [facility] | Interrogation | | | | | [place], | (Primary Dx); | | | | | [place] [address] | Presence of | | | | | [phone] | permanent cardiac | | | | [...]
--- OUTSIDE RECORDS SUMMARY | ~2019-10-27 | XMS | Encounter Summary ---
Demographics + + + | Address | [address] | | | [place] [address] | + + + | Home Phone [...] Team Providers + +------+ + | Care Mohel Name | Role | Phone | + [...] + | 06/24/ | Telephone | [facility] | Daljit Singletary, | Lab Order | | 2017 | | CARDIOLOGY [address] | MD [address] [place] | | | | | [place], | [place], | | | | | [place] [address] | [place] [address] | | | | | [phone] | [phone] | | | | | | | [...] | | | | | | [place] [address] | | | | | | [phone] | | | | | | | | +--------+ + + + + | 11/20/ | Implant | Cardiology | Daljit Singletary, | Remote Device | 2018 | Monitor | | [facility] | Interrogation | | | | | [place], | (Primary Dx); | | | | | [place] [address] | Presence of | | | | | [phone] | permanent cardiac | | | | [...] 06/24/2018, Expires: | | | | | tribe coronary | 06/24/2019 | | | | | artery of tribe | | | | | | [...]
--- OUTSIDE RECORDS SUMMARY | ~2019-10-27 | XMS | Encounter Summary ---
Demographics + + + | Address | [address] | | | [place] [address] | + + + | Home Phone [...] Providers + +------+ + | Care Appeals And Generalist Clerk Name | Role | Phone | [...] 2019 | | GASTROENTEROLOGY | [address] [place], [place] | | | | | [address] [place] | [address] [place], [place] | | | | | [address] [place], [place] | [address] | | | | | [address] | | | | | | [phone] | | | +--------+--------+ + + + [...] | | | | | | [place] [address] | | | | | | [phone] | | | | | | | | +--------+ + + + + | 11/20/ | Implant | Cardiology | Daljit Singletary, | Remote Device | | 2018 | Monitor | | [address] | Interrogation | | | | | [place], | (Primary Dx); | | | | | [place] [address] | Presence of | | | | | [phone] | permanent cardiac | | | | [...]
--- OUTSIDE RECORDS SUMMARY | ~2019-10-27 | XMS | Encounter Summary ---
Demographics + + + | Address | [address] | | | [place] [address] | + + + | Home Phone [...] Providers + +------+ + | Care Refrigeration Unit Repairer Name | Role | Phone | [...] + + | 12/21/ | Office | [facility] | [place], | Chest pain (Primary | | 2013 | Visit | CARDIOLOGY [address] | [address] | Dx); Symptomatic | | | | [place], | [place], | PVCs; | | | | [place] [address] | [place] [address] | Hyperlipidemia; | | | | [phone] | [phone] | Hypertension; | | | | | [...] this time to see a specialist in [place] and he was to follow up with [...] MOUTH EVERY DAY 30 table t 5 Hartshorn-3 Fatty Acids (SALMON OIL-1000 PO) CAPS, one [...] go back in 3 days to [place] for an attempt of ablation under general [...] tolic function, LVEF 65 to 70%. B. ActiveEon DDD permanent pacemaker implantation on 06/14/09 by [...] made to ensure accuracy; however, inadvertent computerized audio visual specialist errors may be pre sent. documented in this encounter Plan of Treatment +--------+ + + + + | Date | Type | Specialty | Care Team | Description | +--------+ + + + + | 11/09/ | Office | Cardiology | [place], | | | 2019 | Visit | | PARISA [address] | | | | | | [place], | | | | | | [place] [address] | | | | | | [phone] | | | | | | | | +--------+ + + + + | 11/20/ | Implant | Cardiology | Daljit Singletary, | Remote Device | | 2019 | Monitor | | [address] [place] | Interrogation | | | | | [place], | (Primary Dx); | | | | | [place] [address] | Presence of | | | | | [phone] | permanent cardiac | | | | [...] of unspecified type of vessel, | | oneida or graft | + + documented in this encounter
--- OUTSIDE RECORDS SUMMARY | ~2019-10-27 | XMS | Encounter Summary ---
Demographics + + + | Address | [address] | | | [place] [address] | + + + | Home Phone [...] Providers + +------+ + | Care Lead Application Architect Name | Role | Phone | + +------+ + | Michael Amanda DO | PCP | | + +------+ + Encounter Details +--------+ + + + + | Date | Type | Department | Care Team | Description | +--------+ + + + + | 01/30/ | Hospital | [facility] | Jay Gambino MD | | | 2012 - | Encounter | [facility] | [address] | | | | | CARDIAC TELEMETRY | [address] [place], | | | 01/31/ | | [address] | [place] [address] | | | 2012 | | [place] | [phone] | | | | | [address] | | | | | | [phone] | | | +--------+ + + + [...] 1960 ADMISSION DATE: 01/30/2013 DISCHARGE DATE: 01/31/2013 [id number] / [id number] ADMITTING DIAGNOSES: 1. Symptomatic PVCs. 2. Sinus [...] 150, 1 to 2 tabs daily. 10. Bonneau-3 fatty acids 1000 mg b.i.d. MOE GAY ADM:01/30/13 [id number] 01/31/13 [place] DISCHARGE SUMMARY [id number] [facility] Carmela Cuevas PAC B [facility] MD Meena Pleitez THIS REPORT IS CONFIDENTIAL AND NOT TO BE RELEASED WITHOUT PROPER AUTHORIZATION. [facility] 11. Valacyclovir 500 mg daily. B. New medication added: Diltiazem CD 180 a day. FOLLOWUP: The patient has a followup appointment on 03/02/2013 at 10:[address] Niles meza at the [facility], [address]. No heavy lifting or driving times 48 hours. YOANA Barlow MD A P [facility] #[id number] cc: MD Carmela Pleitez PA-C Electronically Signed 02/06/13 1616 LAKESHIA Barlow Electronically Signed 02/20/13 0731 Jay Gambino MD MOE GAY ADM:01/30/13 [id number] 01/31/13 [place] DISCHARGE SUMMARY [id number] [facility] LAKESHIA Barlow B [facility] Jay Gambino MD R THIS REPORT IS CONFIDENTIAL AND NOT TO BE RELEASED WITHOUT PROPER AUTHORIZATION.Electronica lly signed by Jael Brown at 02/20/2013 7:31 AM FRANCYZzCarmela Moncada - 02/01/20 13 8:44 AM PDT PATIENT NAME: MOE GAY Sex/Age: M / 52Y : 1960 ADMISSION DATE: 01/30/2013 DISCHARGE DATE: 01/31/2013 [id number] / [id number] ADMITTING DIAGNOSES: 1. Symptomatic PVCs. 2. Sinus [...] 150, 1 to 2 tabs daily. 10. Bonneau-3 fatty acids 1000 mg b.i.d. MOE GAY ADM:01/30/13 [id number] 01/31/13 [place] DISCHARGE SUMMARY [id number] [facility] LAKESHIA Barlow B [facility] MD Meena Pleitez THIS REPORT IS CONFIDENTIAL AND NOT TO BE RELEASED WITHOUT PROPER AUTHORIZATION. [facility] 11. Valacyclovir 500 mg daily. B. New medication added: Diltiazem CD 180 a day. FOLLOWUP: The patient has a followup appointment on 03/02/2013 at 10:[address] Niles meza at the [facility], [address]. No heavy lifting or driving times 48 hours. YOANA Barlow MD A [facility] #[id number] cc: MD Carmela Pleitez PA-C Electronically Signed 02/06/13 1616 LAKESHIA Barlow MOE GAY ADM:01/30/13 [id number] 01/31/13 [place] DISCHARGE SUMMARY [id number] [facility] LAKESHIA Barlow ES B [facility] Jay Gambino MD R THIS [...] + + + +---------+ + + | Bonneau-3 Fatty | CAPS, one capsule by | [...] | | | | | | [place] [address] | | | | | | [phone] | | | | | | | | +--------+ + + + + | 11/20/ | Implant | Cardiology | Daljit Singletary, | Remote Device | | 2019 | Monitor | | [address] [facility] | Interrogation | | | | | [place], | (Primary Dx); | | | | | [place] [address] | Presence of | | | | | [phone] | permanent cardiac | | | | [...] + | [facility] | [address] | [place] [address] | | | [facility] | [...] + + | YESSY JONES | [address] | [place] [address] | | | [facility] | [...] + + | Glucose | 113 (H)Comment: Hungarian | 65 - 99 mg/dL | [facility] | | | | Diabetes [...] + + | YESSY JONES | [address] | [place] [address] | | | [facility] | [...]
--- OUTSIDE RECORDS SUMMARY | ~2019-10-27 | XMS | Encounter Summary ---
Demographics + + + | Address | [address] | | | [place] [address] | + + + | Home Phone [...] | | | | | | [place], [place] | (Fax) | | | | | [address] | | | | | | [phone] | | | +--------+ + + + [...] | | | | | | [place] [address] | | | | | | [phone] | | | | | | | | +--------+ + + + + | 11/20/ | Implant | Cardiology | Daljit Singletary, | Remote Device | | 2018 | Monitor | | [address] [facility] | Interrogation | | | | | [place], | (Primary Dx); | | | | | [place] [address] | Presence of | | | | | [phone] | permanent cardiac | | | | [...]
--- OUTSIDE RECORDS SUMMARY | ~2019-10-27 | XMS | Encounter Summary ---
Demographics + + + | Address | [address] | | | [place] [address] | + + + | Home Phone [...] + +------+ + | Care Structural Metal Worker Name | Role | Phone | + +------+ + | Kirk French MD | PCP | | + +------+ + Encounter Details +--------+ + + + + | Date | Type | Department | Care Team | Description | +--------+ + + + + | 06/19/ | Orders Only | [facility] | Fabrice Hylton, | Abnormal weight | | 2019 | | SYSTEM GENERIC OP | MD [address] | loss; Anxiety | | | | CONVERSION [address] | [address] [place], [place] | disorder; Chronic | | | | [address] [place], [place] | [address] | pain syndrome; | | | | [address] | | Obesity; Neuralgia | | | | [phone] | | and neuritis, | | | [...] W | | | | | | [place], | | | | | | [place] [address] | | | | | | [phone] | | | | | | | | +--------+ + + + + | 11/20/ | Implant | Cardiology | Daljit Singletary, | Remote Device | | 2019 | Monitor | | [address] [place] | Interrogation | | | | | [place], | (Primary Dx); | | | | | [place] [address] | Presence of | | | | | [phone] | permanent cardiac | | | | [...]
--- OUTSIDE RECORDS SUMMARY | ~2019-10-27 | XMS | Encounter Summary ---
Demographics + + + | Address | [address] | | | [place] [address] | + + + | Home Phone [...] Providers + +------+ + | Care Electronic Imager Name | Role | Phone | + [...] Provider Unknown | | | | | [place], [place] | [phone] | | | | | [address] | | | | | | [phone] | | | +--------+ + + + [...] | | | | | | | #[id number], exp 07/2016 | | | | | [...] | | | | | | [place] [address] | | | | | | [phone] | | | | | | | | +--------+ + + + + | 11/20/ | Implant | Cardiology | Daljit Singletary, | Remote Device | | 2018 | Monitor | | MD [address] | Interrogation | | | | | [facility], | (Primary Dx); | | | | | [place] [address] | Presence of | | | | | [phone] | permanent cardiac | | | | [...]
--- OUTSIDE RECORDS SUMMARY | ~2019-10-27 | XMS | Encounter Summary ---
Demographics + + + | Address | [address] | | | [place] [address] | + + + | Home Phone [...] + +------+ + | Care High School Industrial Arts Teacher Name | Role | Phone | [...] 2014 | | CARDIOLOGY [address] | POWDER CARRIER [address] | | | | | [place], | [place], [place] | | | | | [place] [address] | [address] | | | | | [phone] | | | +--------+ + + + [...] | 11/09/ | Office | Cardiology | [place], | | | 2019 | Visit | | [address] | | | | | | [place], | | | | | | [place] [address] | | | | | | [phone] | | | | | | | | +--------+ + + + + | 11/20/ | Implant | Cardiology | Daljit Singletary, | Remote Device | | 2018 | Monitor | | MD [address] | Interrogation | | | | | [place], | (Primary Dx); | | | | | [place] [address] | Presence of | | | | | [phone] | permanent cardiac | | | | [...]
--- OUTSIDE RECORDS SUMMARY | ~2019-10-27 | XMS | Encounter Summary ---
Demographics + + + | Address | [address] | | | [place] [address] | + + + | Home Phone [...] Providers + +------+ + | Care Biomedical Analytical Scientist Name | Role | Phone | + +------+ + PCP | Unavailable | + +------+ + Encounter Details +--------+ + + + + | Date | Type | Department | Care Team | Description | +--------+ + + + + | 05/02/ | [facility] | [facility] | Jonathan, | | | 2009 | Encounter | MED CTR EMERGENCY | Martell Cr MD [address] | | | | | CENTER [address] [place] | [place] | | | | | [place] | [place] [address] | | | | | [address] | [phone] | | | | | [phone] | | | +--------+ + + + [...] W | | | | | | [place], | | | | | | [place] [address] | | | | | | [phone] | | | | | | | | +--------+ + + + + | 11/20/ | Implant | Cardiology | Daljit Singletary, | Remote Device | | 2019 | Monitor | | MD [place] | Interrogation | | | | | [facility], | (Primary Dx); | | | | | [place] [address] | Presence of | | | | | [phone] | permanent cardiac | | | | [...]
--- OUTSIDE RECORDS SUMMARY | ~2019-10-27 | XMS | Encounter Summary ---
Demographics + + + | Address | [address] | | | [place] [address] | + + + | Home Phone [...] Providers + +------+ + | Care Wind Site Manager Name | Role | Phone | [...] [address] | | | | | [address] | [place] | | | | | [phone] | [address] | | | | | | [phone] | | | | | | | [...] Notes by Kylah Fraser CMA at 04/11/18 9844 Author: Kylah Fraser CMA Service: (none) Author Type: Commercial Tire Service Technician Filed: 04/19/18 1118 Encounter Date: 04/11/2018 Status: Signed Director Of Security: Kylah Fraser CMA (Commercial Tire Service Technician) See telephone encounter 04/19/18. Karen pfeiffer in [...] | | | | | | [place] [address] | | | | | | [phone] | | | | | | | | +--------+ + + + + | 11/20/ | Implant | Cardiology | Daljit Singletary, | Remote Device | | 2018 | Monitor | | MD [address] [place] | Interrogation | | | | | [place], | (Primary Dx); | | | | | [place] [address] | Presence of | | | | | [phone] | permanent cardiac | | | | [...]
--- OUTSIDE RECORDS SUMMARY | ~2019-10-27 | XMS | Encounter Summary ---
Demographics + + + | Address | [address] | | | [place] [address] | + + + | Home Phone [...] Team Providers + +------+ + | Care Founder Ceo & President Name | Role | Phone | [...] | | | | [place] | [address] | | | | | [address] | | | | | | [phone] | | | +--------+ + + + [...] W | | | | | | [place], | | | | | | [place] [address] | | | | | | [phone] | | | | | | | | +--------+ + + + + | 11/20/ | Implant | Cardiology | Daljit Singletary, | Remote Device | | 2018 | Monitor | | MD [place] | Interrogation | | | | | [place], | (Primary Dx); | | | | | [place] [address] | Presence of | | | | | [phone] | permanent cardiac | | | | [...]
--- OUTSIDE RECORDS SUMMARY | ~2019-10-27 | XMS | Encounter Summary ---
Demographics + + + | Address | [address] | | | [place] [address] | + + + | Home Phone [...] Team Providers + +------+ + | Care Dethistler Operator Name | Role | Phone | [...] Provider Unknown | | | | | [place], [place] | [phone] | | | | | [address] | | | | | | [phone] | | | +--------+ + + + [...] | | | | | | [place] [address] | | | | | | [phone] | | | | | | | | +--------+ + + + + | 11/20/ | Implant | Cardiology | Daljit Singletary, | Remote Device | | 2019 | Monitor | | [address] [facility] | Interrogation | | | | | [place], | (Primary Dx); | | | | | [place] [address] | Presence of | | | | | [phone] | permanent cardiac | | | | [...]
--- OUTSIDE RECORDS SUMMARY | ~2019-10-27 | XMS | Encounter Summary ---
Demographics + + + | Address | [address] | | | [place] [address] | + + + | Home Phone [...] Providers + +------+ + | Care Train Director Name | Role | Phone | [...] | CARDIOLOGY [address] | [address] [place] | reprogramming/check | | | | [place], | [place], | DO NOT DELETE | | | | [place] [address] | [place] [address] | (Primary Dx); | | | | [phone] | [phone] | Sinoatrial node | | | | [...] W | | | | | | [place], | | | | | | [place] [address] | | | | | | [phone] | | | | | | | | +--------+ + + + + | 11/20/ | Implant | Cardiology | Daljit Singletary, | Remote Device | | 2018 | Monitor | | MD [address] [place] | Interrogation | | | | | [place], | (Primary Dx); | | | | | [place] [address] | Presence of | | | | | [phone] | permanent cardiac | | | | [...] 1960: | | AGE: 56 y.o.Pacemaker Evaluation ReportAusan juan regional medical centert 2015Reason for evaluation: | [...]
--- OUTSIDE RECORDS SUMMARY | ~2019-10-27 | XMS | Encounter Summary ---
Demographics + + + | Address | [address] | | | [place] [address] | + + + | Home Phone [...] Phone | + + +---------+ + | aMria Isabel Sanchez | ECON | Unknown | | + + +---------+ + Care Team Providers + +------+ + | Care Quality Lead Name | Role | Phone | [...] + + | 12/23/ | Telephone | [facility] | Emmanuel Daniel MD | Other (Needs to know | | 2017 | | GASTROENTEROLOGY | [address] [place], [place] | what he can eat | | | | [address] [place] | [address] [place], [place] | today) | | | | [address] [place], [place] | [address] | | | | | [address] | | | | | | [phone] | | | +--------+ + + + [...] | | | | | | [place] [address] | | | | | | [phone] | | | | | | | | +--------+ + + + + | 11/20/ | Implant | Cardiology | Daljit Singletary, | Remote Device | | 2018 | Monitor | | MD [place] | Interrogation | | | | | [facility], | (Primary Dx); | | | | | [place] [address] | Presence of | | | | | [phone] | permanent cardiac | | | | [...]
--- OUTSIDE RECORDS SUMMARY | ~2019-10-27 | XMS | Encounter Summary ---
Demographics + + + | Address | [address] | | | [place] [address] | + + + | Home Phone [...] Providers + +------+ + | Care Mail Manager Name | Role | Phone | [...] + + | 04/10/ | Telephone | [facility] | Matthew Uriarte | Surgery Appointment | | 2019 | | [address] | MD Tawanna [address] | | | | | [place], [place] | [place], [place] | | | | | [address] | [address] | | | | | [phone] | | | +--------+ + + + [...] | | | | | | [place] [address] | | | | | | [phone] | | | | | | | | +--------+ + + + + | 11/20/ | Implant | Cardiology | Daljit Singletary, | Remote Device | | 2018 | Monitor | | MD [address] | Interrogation | | | | | [facility], | (Primary Dx); | | | | | [place] [address] | Presence of | | | | | [phone] | permanent cardiac | | | | [...]
--- OUTSIDE RECORDS SUMMARY | ~2019-10-27 | XMS | Encounter Summary ---
Demographics + + + | Address | [address] | | | [place] [address] | + + + | Home Phone [...] Providers + +------+ + | Care Wastewater Treatment Plant Operator Name | Role | Phone [...] Provider Unknown | | | | | [place], [place] | [phone] | | | | | [address] | | | | | | [phone] | | | +--------+ + + + [...] | | | | | | | #[id number], exp 07/2016 | | | | | [...] | | | | | | [place] [address] | | | | | | [phone] | | | | | | | | +--------+ + + + + | 11/20/ | Implant | Cardiology | Daljit Singletary, | Remote Device | | 2018 | Monitor | | MD [address] | Interrogation | | | | | [address] [place], | (Primary Dx); | | | | | [place] [address] | Presence of | | | | | [phone] | permanent cardiac | | | | [...]
--- OUTSIDE RECORDS SUMMARY | ~2019-10-27 | XMS | Encounter Summary ---
Demographics + + + | Address | [address] | | | [place] [address] | + + + | Home Phone [...] Team Providers + +------+ + | Care Delinquency Prevention Officer Name | Role | Phone | [...] | [facility] | Bahman Gant MD | Other dysphagia | | 2013 | Visit | OTOLARYNGOLOGY [address] | [address] [place] | (Primary Dx) | | | | [address] | [address] [place], | | | | | [place], [place] | [place] [address] | | | | | [address] | [phone] | | | | | [phone] | | | +--------+---------+ + + + [...] MD - 09/13/2013 5:46 PM PDTSee dictation #[id number] signed by Joseph Gant MD at 09/13/2013 5:52 PM Bahman Lamb MD - 09/13/2013 12:00 AM PDT ENT AND AUDIOLOGY [address] [facility] [address] [place] [address] FAX: [phone] OFFICE VISIT The patient gives a history [...] Gant MD GM / MS JOB #: [id number] signed by Bahman Gant MD at 09/14/2013 [...] | | | | | | [place] [address] | | | | | | [phone] | | | | | | | | +--------+ + + + + | 11/20/ | Implant | Cardiology | Daljit Singletary, | Remote Device | | 2019 | Monitor | | [address] [facility] | Interrogation | | | | | [place], | (Primary Dx); | | | | | [place] [address] | Presence of | | | | | [phone] | permanent cardiac | | | | [...]
--- OUTSIDE RECORDS SUMMARY | ~2019-10-27 | XMS | Encounter Summary ---
Demographics + + + | Address | [address] | | | [place] [address] | + + + | Home Phone [...] Team Providers + +------+ + | Care Masonry Supervisor Name | Role | Phone | [...] Provider Unknown | | | | | [place], [place] | [phone] | | | | | [address] | | | | | | [phone] | | | +--------+ + + + [...] | | | | | | [place] [address] | | | | | | [phone] | | | | | | | | +--------+ + + + + | 11/20/ | Implant | Cardiology | Daljit Singletary, | Remote Device | | 2019 | Monitor | | [address] [facility] | Interrogation | | | | | [place], | (Primary Dx); | | | | | [place] [address] | Presence of | | | | | [phone] | permanent cardiac | | | | [...]
--- OUTSIDE RECORDS SUMMARY | ~2019-10-27 | XMS | Encounter Summary ---
Demographics + + + | Address | [address] | | | [place] [address] | + + + | Home Phone [...] + +------+ + | Care Integrated Circuit Ic Layout Designer Name | Role | Phone | + +------+ + | Kirk French MD | PCP | | + +------+ + Encounter Details +--------+ + + + + | Date | Type | Department | Care Team | Description | +--------+ + + + + | 04/07/ | Hospital | [facility] | Pia Akhtar | Spinal stenosis of | | 2016 | Encounter | MED CTR XRAY [address] | MD [address] | lumbar region | | | | [place] | [address] | | | | | [place] [address] | [place] [address] | | | | | [phone] | [phone] | | | | | | | [...] + + + +---------+ + + | Chambers-3 Fatty | CAPS, one capsule by | [...] | | | | | | [place] [address] | | | | | | [phone] | | | | | | | | +--------+ + + + + | 11/20/ | Implant | Cardiology | Daljit Singletary, | Remote Device | | 2018 | Monitor | | [address] [facility] | Interrogation | | | | | [place], | (Primary Dx); | | | | | [place] [address] | Presence of | | | | | [phone] | permanent cardiac | | | | [...]
--- OUTSIDE RECORDS SUMMARY | ~2019-10-27 | XMS | Encounter Summary ---
Demographics + + + | Address | [address] | | | [place] [address] | + + + | Home Phone [...] Providers + +------+ + | Care Housekeeping Associate Name | Role | Phone | + +------+ + | Kirk French MD | PCP | | + +------+ + Encounter Details +--------+ + + + + | Date | Type | Department | Care Team | Description | +--------+ + + + + | 11/16/ | Hospital | [facility] | Kirk French | Aneurysm (HCC) | | 2017 | Encounter | MED CTR ULTRASOUND | D, MD [address] | | | | | [address] [place] | [address] | | | | | [place], [place] | [place] [address] | | | | | [address] | [phone] | | | | | [phone] | | | | | | | [...] | | | | | | [place] [address] | | | | | | [phone] | | | | | | | | +--------+ + + + + | 11/20/ | Implant | Cardiology | Daljit Singletary, | Remote Device | | 2019 | Monitor | | [address] [facility] | Interrogation | | | | | [place], | (Primary Dx); | | | | | [place] [address] | Presence of | | | | | [phone] | permanent cardiac | | | | [...]
--- OUTSIDE RECORDS SUMMARY | ~2019-10-27 | XMS | Encounter Summary ---
Demographics + + + | Address | [address] | | | [place] [address] | + + + | Home Phone [...] Team Providers + +------+ + | Care Taper And Floater Name | Role | Phone | + [...] | CARDIOLOGY [address] | [address] [place] | reprogramming/check | | | | [place], | [place], | DO NOT DELETE | | | | [place] [address] | [place] [address] | (Primary Dx); | | | | [phone] | [phone] | Sinoatrial node | | | | [...] W | | | | | | [place], | | | | | | [place] [address] | | | | | | [phone] | | | | | | | | +--------+ + + + + | 11/20/ | Implant | Cardiology | Daljit Singletary, | Remote Device | | 2018 | Monitor | | MD [address] [place] | Interrogation | | | | | [place], | (Primary Dx); | | | | | [place] [address] | Presence of | | | | | [phone] | permanent cardiac | | | | [...] 1960: | | AGE: 56 y.o.Pacemaker Evaluation ReportAumesilla valley hospitalt 2015Reason for evaluation: | | routineIndication [...]
--- OUTSIDE RECORDS SUMMARY | ~2019-10-27 | XMS | Encounter Summary ---
Demographics + + + | Address | [address] | | | [place] [address] | + + + | Home Phone [...] Providers + +------+ + | Care Chicken Handler Name | Role | Phone | [...] [address] | | | | | [place], | [place], | | | | | [place] [address] | [place] [address] | | | | | [phone] | [phone] | | | | | | | [...] | | | | | | [place] [address] | | | | | | [phone] | | | | | | | | +--------+ + + + + | 11/20/ | Implant | Cardiology | Daljit Singletary, | Remote Device | | 2018 | Monitor | | [address] | Interrogation | | | | | [place], | (Primary Dx); | | | | | [place] [address] | Presence of | | | | | [phone] | permanent cardiac | | | | [...] Comment | + + | [facility] | + + + +---------+ + + [...] Comment | + + | [facility] | + + + +---------+ + + [...]
--- OUTSIDE RECORDS SUMMARY | ~2019-10-27 | XMS | Encounter Summary ---
Demographics + + + | Address | [address] [place] [address] | | | [place] [address] | + + + | Home Phone [...] [place] | | | | | [address] | | + + + + + Care Team Providers + +------+ + | Care Buildings And Grounds Director Name | Role | Phone | [...] | | ILA Casper Rosa Maria | [facility] [place] | ED) | | | | Mailcode: Center | [address] | | | | | for Health and | [phone] | | | | | [facility], [facility] | | | | | | [place], [place] | | | | | | [address] | | | | | | [phone] | | | +--------+ + + + [...]
--- OUTSIDE RECORDS SUMMARY | ~2019-10-27 | XMS | Encounter Summary ---
Demographics + + + | Address | [address] | | | [place] [address] | + + + | Home Phone [...] Providers + +------+ + | Care Vp Global Marketing [employer] Name | Role | Phone | + [...] | | | | CENTER [address] | [address] | (Primary Dx) | | | | [place], [place] | [place], [place] | | | | | [address] | [address] | | | | | [phone] | | | +--------+ + + + [...] + + +---------+ + + | [place]-3 Fatty | CAPS, one capsule by | [...] W | | | | | | [place], | | | | | | [place] [address] | | | | | | [phone] | | | | | | | | +--------+ + + + + | 11/20/ | Implant | Cardiology | Sydni Singletary, | Remote Device | | 2019 | Monitor | | [address] | Interrogation | | | | | [place], | (Primary Dx); | | | | | [place] [address] | Presence of | | | | | [phone] | permanent cardiac | | | | [...] W?MRN: | | | | | | [id number] | | | [id number] | | | his | | | [...] | | | ent/60 | | | [id number] | | | -5586- | | | [...] | | | St. | | | [place] | | | y | | | [...] | | | ext. | | | [address] | | | or go | | [...] | | | M.D. | | | Nurses' Association Counselor | | | al | | [...] | | | | | | [employer] | | | | | [...] ST. | [address] | [place] | [phone] | | [facility] | | [address] | | | - LABORATORY | | [...] [address] | [place] | [phone] | | [facility] | | [address] | | | - LABORATORY | | [...] [address] | [place] | [phone] | | [facility] | | [address] | | | - LABORATORY | | [...] mL/min/1.73m2 | . APOLONIA | | | NORWEGIAN | RATE,ESTIMATED | | MEDICAL | | | | mL/min/1.32p4Dqyq than | | CENTER - | | [...] ST. | [address] | [place] | [phone] | | [facility] | | [address] | | | - LABORATORY | | [...] ST. | [address] | [place], [place] | [phone] | | [facility] | | [address] | | | - LABORATORY | | [...] + | [facility] | [address] | [place] | [phone] | | [facility] | | [address] | | | - LABORATORY | | [...] SYDNI | | | | | | ([id number]) on 06/22/2018 | | | | | [...]
--- OUTSIDE RECORDS SUMMARY | ~2019-10-27 | XMS | Encounter Summary ---
Demographics + + + | Address | [address] | | | [place] [address] | + + + | Home Phone [...] + + + | 01/27/ | [facility] | [facility] | Jonathan, | | | 2008 | Encounter | MED CTR EMERGENCY | Martell Cr MD [address] | | | | | CENTER [address] | [place] | | | | | [place] | [place] [address] | | | | | [address] | [phone] | | | | | [phone] | | | +--------+ + + + [...] W | | | | | | [place], | | | | | | [place] [address] | | | | | | [phone] | | | | | | | | +--------+ + + + + | 11/20/ | Implant | Cardiology | Daljit Singletary, | Remote Device | | 2019 | Monitor | | MD Chiquis Oro | Interrogation | | | | | [place], | (Primary Dx); | | | | | [place] [address] | Presence of | | | | | [phone] | permanent cardiac | | | | [...]
--- OUTSIDE RECORDS SUMMARY | ~2019-10-27 | XMS | Encounter Summary ---
Demographics + + + | Address | [address] | | | [place] [address] | + + + | Home Phone [...] Team Providers + +------+ + | Care Change Control Manager Name | Role | Phone [...] | 03/07/ | Office | [facility] | Eure, | SINUS BRADYCARDIA | | 2013 | Visit | CARDIOLOGY [address] | [place] [address] | (Primary Dx); | | | | [place], | [place], | Syncope; Symptomatic | | | | [place] [address] | [place] [address] | PVCs; Pacemaker - | | | | [phone] | [phone] | Medtronic - [id number] | | | [...] Sanchez Date: March 07, 2014 : 1960 Residential Sales Consultant: Kailey Pruitt RN Device Lacquer Sprayer:Medtronic Sense (mV) Impedance (?) Capture (V) Capture (ms) A Lead >5.60 402 1.500 0.09 RV Lead >31.36 522 2.00 0.09 LV Lead Battery Impedance (?): 528 Battery Voltage (V): 2.79 SC Interval (ms): 147 AR Interval (ms): 217 VA Conduction: Mode Switch Events: 0 % of time: 0 -CASTING MACHINE CONTROL BOARD OPERATOR: <0.1% AP-CASTING MACHINE CONTROL BOARD OPERATOR: 0.1% -VS: 23.8% AP-VS: 76.1% CASTING MACHINE CONTROL BOARD OPERATOR: Magnetic Rate: 85 LINDA: 65 LEAH: [...] Pruitt RN 03/07/2014 12:00 Janeen Mccollum AR IC DESIGNER STANDARD CELLS - 03/07/2014 11:07 AM PDT PATIENT NAME: [...] needed for Chest pain. 25 tablet 12 [place]-3 Fatty Acids (SALMON OIL-1000 PO) CAPS, [...] Sanchez Date: March 07, 2014 : 1960 Residential Sales Consultant: Kailey Pruitt RN Device Lacquer Sprayer:Lokata.ru Sense (mV) Impedance (?) Capture (V) Capture (ms) A Lead >5.60 402 1.500 0.09 RV Lead >31.36 522 2.00 0.09 LV Lead Battery Impedance (?): 528 Battery Voltage (V): 2.79 SC Interval (ms): 147 AR Interval (ms): 217 VA Conduction: Mode Switch Events: 0 % of time: 0 -CASTING MACHINE CONTROL BOARD OPERATOR: <0.1% AP-CASTING MACHINE CONTROL BOARD OPERATOR: 0.1% -VS: 23.8% AP-VS: 76.1% CASTING MACHINE CONTROL BOARD OPERATOR: Magnetic Rate: 85 LINDA: 65 LEAH: [...] completely be ruled out. [facility] 12/25/13, shows noncritical coronary artery disease, [...] pain. He is in class II of [place] Heart Association functional class . There are [...] arrhythmia performed by Dr. Gambino at [facility] on 01/30/2013. Patient had spontaneous PVCs [...] to go back in 3 days to [place] for an attempt of ablation under general [...] palpitations.. He is in class II of [place] Heart Ass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 There are no [...] bring in his blood pressure [facility] e 5. Lightheadedness and dizziness/ [...] made to ensure accuracy; however, inadvertent computerized estate conservator errors may be pre sent. Electronically signed [...] W | | | | | | [place], | | | | | | [place] [address] | | | | | | [phone] | | | | | | | | +--------+ + + + + | 11/20/ | Implant | Cardiology | Daljit Singletary, | Remote Device | | 2019 | Monitor | | MD Chiquis Oro | Interrogation | | | | | [place], | (Primary Dx); | | | | | [place] [address] | Presence of | | | | | [phone] | permanent cardiac | | | | [...] 07, 2014 : | | | 1960 Residential Sales Consultant: Kailey Pruitt RN Device | | | Lacquer Sprayer:Lokata.ru Sense (mV) Impedance (?) Capture (V) | | | Capture (ms) A Lead >5.60 402 1.500 0.09 RV Lead >31.36 522 2.00 | | | 0.09 LV Lead Battery Impedance (?): 528 Battery Voltage (V): | | | 2.79 SC Interval (ms): 147 AR Interval (ms): 217 VA Conduction: | | | Mode Switch Events: 0 % of time: 0 -CASTING MACHINE CONTROL BOARD OPERATOR: <0.1% AP-CASTING MACHINE CONTROL BOARD OPERATOR: 0.1% -VS: | | | 23.8% AP-VS: 76.1% CASTING MACHINE CONTROL BOARD OPERATOR: Magnetic Rate: 85 LINDA: 65 LEAH: [...] | | Date: March 07, 2014DOB: 1960 Residential Sales Consultant: Kailey Pruitt RN Device | | Lacquer Sprayer:Lokata.ru Sense (mV) Impedance (?) Capture (V) Capture (ms) A Lead >5.60 | | 402 1.500 0.09 RV Lead >31.36 522 2.00 0.09 LV Lead Battery Impedance (?): 528 | | Battery Voltage (V): 2.79 SC Interval (ms): 147 AR Interval (ms): 217 VA Conduction: | | Mode Switch Events: 0 % of time: 0 -CASTING MACHINE CONTROL BOARD OPERATOR: <0.1% AP-CASTING MACHINE CONTROL BOARD OPERATOR: 0.1% -VS: 23.8% AP-VS: 76.1% | | CASTING MACHINE CONTROL BOARD OPERATOR: Magnetic Rate: 85 LINDA: 65 LEAH: [...]
--- OUTSIDE RECORDS SUMMARY | ~2019-10-27 | XMS | Encounter Summary ---
Demographics + + + | Address | [address] | | | [place] [address] | + + + | Home Phone [...] Providers + +------+ + | Care Material Mixer Name | Role | Phone | [...] | CARDIOLOGY [address] | [address] | Interrogation | | | | [place], | [place], | (Primary Dx); | | | | [place] [address] | [place] [address] | Pacemaker; | | | | [phone] | [phone] | Sinoatrial node | | | | [...] | | | | | | [place] [address] | | | | | | [phone] | | | | | | | | +--------+ + + + + | 11/20/ | Implant | Cardiology | Daljit Singletary, | Remote Device | | 2019 | Monitor | | MD [address]iqu[address]ro | Interrogation | | | | | [place], | (Primary Dx); | | | | | [place] [address] | Presence of | | | | | [phone] | permanent cardiac | | | | [...] remote PDF scanned into | | | [facility] for remote interrogation results. Data [...]
--- OUTSIDE RECORDS SUMMARY | ~2019-10-27 | XMS | Encounter Summary ---
Demographics + + + | Address | [address] | | | [place] [address] | + + + | Home Phone [...] Team Providers + +------+ + | Care Wireless Sales Manager Name | Role | Phone | + +------+ + | Kirk French MD | PCP | | + +------+ + Encounter Details +--------+ + + + + | Date | Type | Department | Care Team | Description | +--------+ + + + + | 01/25/ | Hospital | [facility] | Daljit Singletary, | Stable angina | | 2019 | Encounter | MED CTR CV INTRA OP | MD [address] | pectoris (HCC) | | | | [address] | [place], | | | | | [place] | [place] [address] | | | | | [address] | [phone] | | | | | [phone] | | | +--------+ + + + [...] as a collagen plugis used on the [place] triny site to close the site, you [...] by your healthcare provider Date Last Reviewed: 09/22/201619996028-7093 [employer]. [address] [place] [address]. All righ ts reserved. This information is [...] + + + +---------+ + + | [place]-3 Fatty | CAPS, one capsule by | [...] W | | | | | | [place], | | | | | | [place] [address] | | | | | | [phone] | | | | | | | | +--------+ + + + + | 11/20/ | Implant | Cardiology | Daljit Singletary, | Remote Device | | 2018 | Monitor | | [facility] | Interrogation | | | | | [place], | (Primary Dx); | | | | | [place] [address] | Presence of | | | | | [phone] | permanent cardiac | | | | [...] (1960) MEDICAL RECORD NUMBER: | | | [id number] OF PROCEDURE: 01/25/2019 METAL COATER: Daljit | | | MD Gemini PROCEDURES [...] Sanchez, (1960) | | OF PROCEDURE: 01/25/2019PRIMARY YOKER MACHINE OPERATOR: Daljit Singletary MD PROCEDURES | | [...] medical management. | | [facility] 9:[facility] PROVID[facility]:Kirk French MDFor additional [...]
--- OUTSIDE RECORDS SUMMARY | ~2019-10-27 | XMS | Encounter Summary ---
Demographics + + + | Address | [address] | | | [place] [address] | + + + | Home Phone [...] Providers + +------+ + | Care Production Team Manager Name | Role | Phone | + +------+ + PCP | Unavailable | + +------+ + Encounter Details +--------+ + + + + | Date | Type | Department | Care Team | Description | +--------+ + + + + | 05/13/ | [facility] | [facility] | Dom Graham, | | | 2010 | Encounter | MED CTR EMERGENCY | [address] | | | | | CENTER [address] | [place] | | | | | [place] | [address] | | | | | [address] | | | | | | [phone] | | | +--------+ + + + [...] | | | | | | [place] [address] | | | | | | [phone] | | | | | | | | +--------+ + + + + | 11/20/ | Implant | Cardiology | Daljit Singletary, | Remote Device | | 2019 | Monitor | | [address] [facility] | Interrogation | | | | | [place], | (Primary Dx); | | | | | [place] [address] | Presence of | | | | | [phone] | permanent cardiac | | | | [...] | | | | | the [place] | | | | | | Access [...] ST. | [address] | [place], [place] | [phone] | | [facility] | | [address] | | | - LABORATORY | | | | + + + + + | [address] | [address] | [place], [place] | | | [facility] | | [address] | | | - LABORATORY | | [...] | | Neutrophils | | | [facility] | | [...] + | [facility] | [address] | [place] | [phone] | | [facility] | | [address] | | | - LABORATORY | | | | + + + + + | [facility] | [address] | [place], [place] | | | [facility] | | [address] | | | - LABORATORY | | [...] + | [facility] | [address] | [place], [place] | [phone] | | [facility] | | [address] | | | - LABORATORY | | | | + + + + + | [facility] | [address] | [place], [place] | | | [facility] | | [address] | | | - LABORATORY | | [...] + | [address] | [address] | [place], [place] | [phone] | | [facility] | | [address] | | | - LABORATORY | | | | + + + + + | [facility] | [address] | [place], [place] | | | [facility] | | [address] | | | - LABORATORY | | | | + + + + + XR Chest AP Portable (05/13/2011 3:01 PM PDT) + + | Specimen | + + | | + + + + + | Narrative | Performed At | + + + | [facility] Diagnostic Imaging Department | [facility] | | [address] [facility] | [facility] | | PORTABLE CHEST CLINICAL | DIAG [...] Date/Time: | | | 05/13/2011 17:06 Manager Of Sustainability: <Electronically Signed | | | by Jama Solis MD> 05/13/112038 | | + + + + + | Procedure Note | + + | Kevin, Rad Conversion - 12/29/2013 3:12 PM [facility] | | Diagnostic Imaging Department [address] [place] [address] | | PORTABLE CHEST CLINICAL HISTORY: TACHYCARDIA. [...] | |Transcribed Date/Time: 05/13/2011 17:06 | |Manager Of Sustainability: | |<Electronically Signed by Jama Solis MD> [...]
--- OUTSIDE RECORDS SUMMARY | ~2019-10-27 | XMS | Encounter Summary ---
Demographics + + + | Address | [address] | | | [place] [address] | + + + | Home Phone [...] Providers + +------+ + | Care Bead Cutter Name | Role | Phone | [...] [address] | | | | | [place], | [place], | | | | | [place] [address] | [place] [address] | | | | | [phone] | [phone] | | | | | | | [...] | | | | | | [place] [address] | | | | | | [phone] | | | | | | | | +--------+ + + + + | 11/20/ | Implant | Cardiology | Daljit Singletary, | Remote Device | | 2019 | Monitor | | MD [address] [facility] | Interrogation | | | | | [place], | (Primary Dx); | | | | | [place] [address] | Presence of | | | | | [phone] | permanent cardiac | | | | [...] [facility] | | [address] | | | - LABORATORY | | [...] + | [facility] | [address] | [place] | | | [facility] | | [address] | | | - LABORATORY | | [...]
--- OUTSIDE RECORDS SUMMARY | ~2019-10-27 | XMS | Encounter Summary ---
Demographics + + + | Address | [address] | | | [place] [address] | + + + | Home Phone [...] Providers + +------+ + | Care Dye House Vat Worker Name | Role | Phone | [...] CARDIOLOGY [address] | MD [address] [place] | Interrogation | | | | [place], | [place], | (Primary Dx); | | | | [place] [address] | [place] [address] | Pacemaker; | | | | [phone] | [phone] | Sinoatrial node | | | | [...] | | | | | | [place] [address] | | | | | | [phone] | | | | | | | | +--------+ + + + + | 11/20/ | Implant | Cardiology | Daljit Singletary, | Remote Device | | 2019 | Monitor | | MD [address] [facility] | Interrogation | | | | | [place], | (Primary Dx); | | | | | [place] [address] | Presence of | | | | | [phone] | permanent cardiac | | | | [...] remote PDF scanned into | | | [facility] for remote interrogation results. Data [...]
--- OUTSIDE RECORDS SUMMARY | ~2019-10-27 | XMS | Encounter Summary ---
Demographics + + + | Address | [address] | | | [place] [address] | + + + | Home Phone [...] Providers + +------+ + | Care Cnc Field Service Engineer Name | Role | Phone | + +------+ + | Michael Amanda DO | PCP | | + +------+ + Encounter Details +--------+ + + + + | Date | Type | Department | Care Team | Description | +--------+ + + + + | 11/03/ | Emergency | [facility] | Eliel Calzada, | Palpitations; | | 2013 - | | MEDICAL CENTER | MD Chiquis JOHNSON | Atypical chest pain | | | | EMERGENCY CENTER | [facility] [place] | | | 11/04/ | | [address] | [address] | | | 2013 | | [place], [place] | | | | | | [address] | | | | | | [phone] | | | +--------+ + + + [...] + + + +---------+ + + | [place]-3 Fatty | CAPS, one capsule by [...] | | | | | | [place] [address] | | | | | | [phone] | | | | | | | | +--------+ + + + + | 11/20/ | Implant | Cardiology | Daljit Singletary, | Remote Device | | 2019 | Monitor | | [facility] | Interrogation | | | | | [place], | (Primary Dx); | | | | | [place] [address] | Presence of | | | | | [phone] | permanent cardiac | | | | [...] CHEST 2 VIEW FRONTAL | | AND XEQNNPM9511/03/2014 11:56 PM History: 54 years. Male. Acute [...] EXTERNAL | | | | performed at [facility] | | LAB | | | | [address] [facility];[place], [place] | | | | | | [address] | | | | + + + + + -+ | RED CELL | 4.97Comment: Testing | 4.20 - 5.70 | EXTERNAL | | | COUNT | performed at [facility] | M/uL | LAB | | | | [address];[place] | | | | | | [address] | | | | + + + + + -+ | Hgb | 16.8Comment: Testing | 13.2 - 17.0 | EXTERNAL | | | | performed at [facility];888 | g/dL | LAB | | | | [address];[place] | | | | | | [address] | | | | + + + + + -+ | Hematocrit, | 48.2Comment: Testing | 39.0 - 50.0 % | EXTERNAL | | | POC | performed at [facility];[address] | | LAB | | | | [address];[place] | | | | | | [address] | | | | + + + + + -+ | MCV | 97.1Comment: Testing | 80.0 - 100.0 fl | EXTERNAL | | | | performed at [facility];[address] | | LAB | | | | [address];[place] | | | | | | [address] | | | | + + + + + -+ | MCH | 33.9Comment: Testing | 27.0 - 34.0 pg | EXTERNAL | | | | performed at [facility];[address] | | LAB | | | | [address];[place] | | | | | | [address] | | | | + + + + + -+ | MCHC | 34.9Comment: Testing | 32.0 - 35.5 | EXTERNAL | | | | performed at [facility] | g/dL | LAB | | | | [address];[place] | | | | | | [address] | | | | + + + + + -+ | RDW-CV | 42.4Comment: Testing | 37 - 53 fl | EXTERNAL | | | | performed at [facility];[address] | | LAB | | | | [address];[place] | | | | | | [address] | | | | + + + + + -+ | Platelet | 143 (L)Comment: Testing | 150 - 400 K/uL | EXTERNAL | | | Count | performed at [facility];[address] | | LAB | | | Plasma | [address];[place] | | | | | | [address] | | | | + + + + + -+ | MPV | 9.0Comment: Testing | fl | EXTERNAL | | | | performed at [facility];[address] | | LAB | | | | [address];[place] | | | | | | [address] | | | | + + + + + -+ | Differentia | AUTOMATEDComment: | | EXTERNAL | | | l Type | Testing performed at | | LAB | | | | [facility];[address] | | | [address];[place] [address] | | | | + + + + + -+ | % Segmented | 61.6Comment: Testing | % | EXTERNAL | | | | performed at [facility];[address] | | LAB | | | Neutrophils | [address];[place] | | | | | | [address] | | | | + + + + + -+ | % | 27.8Comment: Testing | % | EXTERNAL | | | Lymphocytes | performed at [facility];[address] | | LAB | | | | [address];[place] | | | | | | [address] | | | | + + + + + -+ | % Monocytes | 8.7Comment: Testing | % | EXTERNAL | | | | performed at [facility] | | LAB | | | | [address];[place] | | | | | | [address] | | | | + + + + + -+ | % | 0.8Comment: Testing | % | EXTERNAL | | | Eosinophils | performed at [facility];[address] | | LAB | | | | [address];[place] | | | | | | [address] | | | | + + + + + -+ | % Basophils | 1.1Comment: Testing | % | EXTERNAL | | | | performed at [facility];[address] | | LAB | | | | [address];[place] | | | | | | [address] | | | | + + + + + -+ | Absolute | 5.4Comment: Testing | 1.9 - 7.4 K/uL | EXTERNAL | | | Segmented | performed at [facility] | | LAB | | | Neutrophils | [address];[place] | | | | | | [address] | | | | + + + + + -+ | Absolute | 2.4Comment: Testing | 1.0 - 3.9 K/uL | EXTERNAL | | | Lymphocytes | performed at [facility];[address] | | LAB | | | | [address];[place] | | | | | | [address] | | | | + + + + + -+ | Absolute | 0.8Comment: Testing | 0 - 0.8 K/uL | EXTERNAL | | | Monocytes | performed at [facility];[address] | | LAB | | | | [address];[place] | | | | | | [address] | | | | + + + + + -+ | Absolute | 0.1Comment: Testing | 0 - 0.5 K/uL | EXTERNAL | | | Eosinophils | performed at [facility];[address] | | LAB | | | | [address];[place] | | | | | | [address] | | | | + + + + + -+ | Absolute | 0.1Comment: Testing | 0 - 0.1 K/uL | EXTERNAL | | | Basophils | performed at [facility];[address] | | LAB | | | | [address];[place] | | | | | | [address] | | | | + + + + + -+ | RBC | SLIDE SCANNED, AGREES | | EXTERNAL | | | Morphology | WITH AUTOMATED | | LAB | | | | RESULTS.Comment: Testing | | | | | | performed at [facility];[address] | | | | | | [address];[place] | | | | | | [address] | | | | + + + + + -+ | Na | 140Comment: Testing | 135 - 143 | EXTERNAL | | | | performed at [facility];888 | mmol/L | LAB | | | | [address];[place] | | | | | | [address] | | | | + + + + + -+ | K | 3.9Comment: Testing | 3.5 - 4.9 | EXTERNAL | | | | performed at [facility];[place] | mmol/L | LAB | | | | [address];[place] | | | | | | [address] | | | | + + + + + -+ | Cl | 107Comment: Testing | 99 - 109 mmol/L | EXTERNAL | | | | performed at [facility];[address] | | LAB | | | | [address];[place] | | | | | | [address] | | | | + + + + + -+ | CO2 | 28Comment: Testing | 23 - 32 mmol/L | EXTERNAL | | | | performed at [facility];[address] | | LAB | | | | [address];[place] | | | | | | [address] | | | | + + + + + -+ | Anion Gap | 9Comment: Testing | 5 - 20 mmol/L | EXTERNAL | | | | performed at [facility];[address] | | LAB | | | | [address];[place] | | | | | | [address] | | | | + + + + + -+ | Glucose, | 97Comment: Testing | 65 - 99 mg/dL | EXTERNAL | | | Fasting | performed at [facility];[address] | | LAB | | | | [address];[place] | | | | | | [address] | | | | + + + + + -+ | BUN | 14Comment: Testing | 8 - 25 mg/dL | EXTERNAL | | | | performed at [facility];[address] | | LAB | | | | [address];[place] | | | | | | [address] | | | | + + + + + -+ | Creatinine | 0.98Comment: Testing | 0.70 - 1.30 | EXTERNAL | | | | performed at [facility];[place] | mg/dL | LAB | | | | [address];[place] | | | | | | [address] | | | | + + + + + -+ | BUN/Creatin | 14Comment: Testing | | EXTERNAL | | | ine Ratio | performed at [facility];[address] | | LAB | | | | [address];[place] | | | | | | [address] | | | | + + + + + -+ | Calcium | 8.8Comment: Testing | 8.5 - 10.2 | EXTERNAL | | | | performed at [facility];888 | mg/dL | LAB | | | | [address];[place] | | | | | | [address] | | | | + + + + + -+ | Protein, | 6.9Comment: Testing | 6.3 - 8.2 g/dL | EXTERNAL | | | Total | performed at [facility];[address] | | LAB | | | | [address];[place] | | | | | | [address] | | | | + + + + + -+ | Albumin | 3.7Comment: Testing | 3.6 - 5.0 g/dL | EXTERNAL | | | | performed at [facility];[address] | | LAB | | | | [address];[place] | | | | | | [address] | | | | + + + + + -+ | Globulin | 3.2Comment: Testing | 1.3 - 4.9 g/dL | EXTERNAL | | | | performed at [facility];[address] | | LAB | | | | [address];[place] | | | | | | [address] | | | | + + + + + -+ | A/G Ratio | 1.2Comment: Testing | 1.0 - 2.4 | EXTERNAL | | | | performed at [facility];[address] | | LAB | | | | [address];[place] | | | | | | [address] | | | | + + + + + -+ | Bilirubin | 0.9Comment: Testing | 0.1 - 1.5 mg/dL | EXTERNAL | | | Total | performed at [facility];[address] | | LAB | | | | [address];[place] | | | | | | [address] | | | | + + + + + -+ | ALP, | 60Comment: Testing | 35 - 115 U/L | EXTERNAL | | | External | performed at [facility];[address] | | LAB | | | | [address];[place] | | | | | | [address] | | | | + + + + + -+ | AST | 22Comment: Testing | 10 - 45 U/L | EXTERNAL | | | | performed at [facility];[address] | | LAB | | | | [address];[place] | | | | | | [address] | | | | + + + + + -+ | ALT | 37Comment: Testing | 10 - 65 U/L | EXTERNAL | | | | performed at [facility];[address] | | LAB | | | | [address];[place] | | | | | | [address] | | | | + + + [...] | | | | | | at [facility];[address] [facility] | | | | | | Blvd;[place] [address] | | | | + + + + + -+ | CK, Total | 103Comment: Testing | 55 - 400 U/L | EXTERNAL | | | | performed at [facility];[address] | | LAB | | | | [facility] [address];[place], [place] | | | | | | [address] | | | | + + + [...] | | | | | performed at [facility];[address] | | | | | | [address];[place] | | | | | | [address] | | | | + + + + + -+ | aPTT, | 26Comment: Testing | 23 - 32 seconds | EXTERNAL | | | Patient | performed at [facility];[address] | | LAB | | | | [address];[place] | | | | | | [address] | | | | + + + + + -+ | CK-MB | 2.9Comment: Testing | 0.5 - 3.6 ng/mL | EXTERNAL | | | | performed at [facility];[address] | | LAB | | | | [address];[place] | | | | | | [address] | | | | + + + [...] EXTERNAL | | | | performed at [facility];[address] | uIU/mL | LAB | | | | [address];[place], [place] | | | | | | [address] | | | | + + + [...] EXTERNAL | | | | performed at [facility];[address] | | LAB | | | | [address];[place] | | | | | | [address] | | | | + + + [...] EXTERNAL | | | | performed at [facility];[address] | | LAB | | | | [address];[place], [place] | | | | | | [address] | | | | + + + [...]
--- OUTSIDE RECORDS SUMMARY | ~2019-10-27 | XMS | Encounter Summary ---
Demographics + + + | Address | [address] | | | [place] [address] | + + + | Home Phone [...] Providers + +------+ + | Care Marketing Operations Coordinator Name | Role | Phone [...] | | | | CENTER [address] | [place], [place] | Anxiety | | | | [place], [place] | [address] | | | | | [address] | | | | | | [phone] | | | +--------+ + + + [...] + + + +---------+ + + | [facility]-3 Fatty | CAPS, one capsule by | [...] W | | | | | | [address] [place], | | | | | | [place] [address] | | | | | | [phone] | | | | | | | | +--------+ + + + + | 11/20/ | Implant | Cardiology | Daljit Singletary, | Remote Device | | 2018 | Monitor | | MD [facility] | Interrogation | | | | | [place], | (Primary Dx); | | | | | [place] [address] | Presence of | | | | | [phone] | permanent cardiac | | | | [...] the uneventful IV administration of 80 mL [id number] contrast. Timing of | | contrast bolus [...] + | MISCELLANEOUS LAB | | | [phone] | + +---------+ + + | MISCELANIOUS LAB | | | [phone] | + +---------+ + + Troponin I [...] | | | | | | [employer] | | | | | [...] + | [facility] | [address] | [place], [place] | [phone] | | [facility] | | [address] | | | - LABORATORY | | | | + + + + + | [facility] | [address] | [place], [place] | | | [facility] | | [address] | | | - LABORATORY | | [...] | 0.89 | 0.60 - 1.30 | [facility] | | | | | mg/dL | [facility] | | | | | | [facility] | | | | | | [facility]ENTER - | | | | | | LABORATORY | | + + + + + + | eGFR if not | >60Comment: GLOMERULAR | >=60 | [facility] | | | | FILTRATION | mL/min/1.73m2 | [facility] | | | NIUEAN | RATE,ESTIMATED | | MEDICAL | | | | mL/min/1.35l0Axsd than | | CENTER - | | [...] + | [facility] | [address] | [place] | [phone] | | [facility] | | [address] | | | - LABORATORY | | | | + + + + + | [facility] | [address] | [place] | | | [facility] | | [address] | | | - LABORATORY | | [...] | | | | | STJuan Diego MATRINE[facility] | [...] + | [facility] | [address] | [place] | [phone] | | [facility] | | [address] | | | - LABORATORY | | | | + + + + + | [facility] | [address] | [place] | | | [facility] | | [address] | | | - LABORATORY | | [...]
--- OUTSIDE RECORDS SUMMARY | ~2019-10-27 | XMS | Encounter Summary ---
Demographics + + + | Address | [address] | | | [place] [address] | + + + | Home Phone [...] Refill | | 2014 | | [facility] | DO [address] | | | | | [address] | [place] | | | | | [place], [place] | [address] | | | | | [address] | | | | | | [phone] | | | +--------+--------+ + + + [...] W | | | | | | [place], | | | | | | [place] [address] | | | | | | [phone] | | | | | | | | +--------+ + + + + | 11/20/ | Implant | Cardiology | Daljit Singletary, | Remote Device | | 2019 | Monitor | | [address] | Interrogation | | | | | [place], | (Primary Dx); | | | | | [place] [address] | Presence of | | | | | [phone] | permanent cardiac | | | | [...]
--- OUTSIDE RECORDS SUMMARY | ~2019-10-27 | XMS | Encounter Summary ---
Demographics + + + | Address | [address] | | | [place] [address] | + + + | Home Phone [...] Team Providers + +------+ + | Care Astronomy Instructor Name | Role | Phone | [...] + + | 04/07/ | Office | [facility] | Matthew Uriarte | Left ureteral | | 2019 | Visit | [address] | MD Tawanna [address] | calculus (Primary | | | | [place], [place] | [place] | Dx); Kidney stones | | | | [address] | [address] | | | | | [phone] | | | +--------+---------+ + + + [...] April 13, 2019 at 7:45 AM at [facility]. Please report to the Surgery [facility] Procedure Center no later than 6:15 AM. REMEMBER: NOTHING TO EAT OR DRINK AFTER MIDNIGHT April 12, 2019. NO FISH OIL, ASPIRIN OR ASPIRIN PRODUCTS ONE WEEK PRIOR TO SURGERY. Tylenol and Advil are OK. You will need to get the following testing done prior to surgery: CBC, BMP YOU WILL NEED TO BRING A HYDRAULICS ENGINEER WITH YOU THE DAY OF SURGERY. Call us at [phone] with any questions. [] Pain management booklet [...] [employer] Peptic ulcer disease Premature ventricular contraction [facility] care 06/26/2013 LAST PSA:12/16/2010 RESULT:0.14 [...] CV LHC; Surgeon: Daljit Singletary MD; Location: [facility] CV LAB CARDIAC CATHERIZATION N/A 01/25/2019 Procedure: CV Cor Angio; Surgeon: Daljit Singletary MD; Location: [facility] CV LAB COLONOSCOPY N/A 12/24/2017 Procedure: COLONOSCOPY; Surgeon: Emmanuel Daniel MD; Location: [facility] MEDICAL PROCEDURE UNIT COLONOSCOPY N/A 01/05/2019 Procedure: COLONOSCOPY; Surgeon: Emmanuel Daniel MD; Location: [facility] MEDICAL PROCEDURE UNIT EGD 12/24/2017 [...] Procedure: EGD; Surgeon: Emmanuel Daniel MD; Location: [facility] MEDICAL PROCEDURE UNIT UPPER GASTROINTESTINAL ENDOSCOPY N/A 01/05/2019 Procedure: EGD; Surgeon: Emmanuel Daniel MD; Location: [facility] MEDICAL PROCEDURE UNIT VASECTOMY Family [...] DAY, Disp: 90 tablet, Rfl: 3 [facility] [employer] (OSTEO [...] 911, Disp: 100 ta blet, Rfl: 3 [place]-3 Fatty Acids (SALMON OIL-1000 PO), CAPS, one capsule by mouth daily twice daily , Disp: , Rfl: ondansetron (ZOFRAN ODT) 4 mg disintegrating tablet, Take 4 mg by mouth., Disp: , Rfl: ONE TOUCH DELICA LANCETS [facility], Check glucose as needed [...] have not thoroughly proofread this note, and learning and development assistant errors are very likely to occur. [...] | | | | | | [place], | | | | | | [place] [address] | | | | | | [phone] | | | | | | | | +--------+ + + + + | 11/20/ | Implant | Cardiology | Daljit Singletary, | Remote Device | | 2018 | Monitor | | MD Sim [place] [place] | Interrogation | | | | | [facility], | (Primary Dx); | | | | | [place] [address] | Presence of | | | | | [phone] | permanent cardiac | | | | [...]
--- OUTSIDE RECORDS SUMMARY | ~2019-10-27 | XMS | Encounter Summary ---
Demographics + + + | Address | [address] | | | [place] [address] | + + + | Home Phone [...] Providers + +------+ + | Care Retail Business Manager Name | Role | Phone | [...] Refill | | 2013 | | MEDIC[facility] [place] | DO [address] | | | | | [address] | [place] | | | | | [place] | [address] | | | | | [address] | | | | | | [phone] | | | +--------+--------+ + + + [...] W | | | | | | [place], | | | | | | [place] [address] | | | | | | [phone] | | | | | | | | +--------+ + + + + | 11/20/ | Implant | Cardiology | Daljit Singletary, | Remote Device | | 2018 | Monitor | | [address] [facility] | Interrogation | | | | | [place], | (Primary Dx); | | | | | [place] [address] | Presence of | | | | | [phone] | permanent cardiac | | | | [...]
--- OUTSIDE RECORDS SUMMARY | ~2019-10-27 | XMS | Encounter Summary ---
Demographics + + + | Address | [address] | | | [place] [address] | + + + | Home Phone [...] Team Providers + +------+ + | Care Escort Blind Name | Role | Phone | + +------+ + PCP | Unavailable | + +------+ + Encounter Details +--------+ + + + + | Date | Type | Department | Care Team | Description | +--------+ + + + + | 06/03/ | Hospital | [facility] | | | | 2008 | Encounter | MED [facility] EMER[facility]Y | | | | | | [place] [address] | | | | | | [place] | | | | | | [address] | | | | | | [phone] | | | +--------+ + + + [...] | | | | | | [place] [address] | | | | | | [phone] | | | | | | | | +--------+ + + + + | 11/20/ | Implant | Cardiology | Daljit Singletary, | Remote Device | | 2018 | Monitor | | [address] [facility] | Interrogation | | | | | [place], | (Primary Dx); | | | | | [place] [address] | Presence of | | | | | [phone] | permanent cardiac | | | | [...]
--- OUTSIDE RECORDS SUMMARY | ~2019-10-27 | XMS | Encounter Summary ---
Demographics + + + | Address | [address] | | | [place] [address] | + + + | Home Phone [...] Providers + +------+ + | Care Bag Worker Name | Role | Phone | [...] 2014 | | CARDIOLOGY [address] | POLY OPERATOR [address] | edema and chest | | | | [place], | [facility] [place] | pain) | | | | [place] [address] | [address] | | | | | [phone] | | | +--------+ + + + [...] | | | | | | [place], | | | | | | [place] [address] | | | | | | [phone] | | | | | | | | +--------+ + + + + | 11/20/ | Implant | Cardiology | Daljit Singletary, | Remote Device | | 2018 | Monitor | | MD Sim [facility] | Interrogation | | | | | [place], | (Primary Dx); | | | | | [place] [address] | Presence of | | | | | [phone] | permanent cardiac | | | | [...]
--- OUTSIDE RECORDS SUMMARY | ~2019-10-27 | XMS | Encounter Summary ---
Demographics + + + | Address | [address] | | | [place] [address] | + + + | Home Phone [...] Providers + +------+ + | Care Print Designer Name | Role | Phone | [...] [place] | | | | | [place], [place] | [address] | | | | | [address] | [place] [address] | | | | | [phone] | [phone] | | | | | | | [...] W | | | | | | [place], | | | | | | [place] [address] | | | | | | [phone] | | | | | | | | +--------+ + + + + | 11/20/ | Implant | Cardiology | Daljit Singletary, | Remote Device | | 2018 | Monitor | | [facility] | Interrogation | | | | | [facility], | (Primary Dx); | | | | | [place] [address] | Presence of | | | | | [phone] | permanent cardiac | | | | [...]
--- OUTSIDE RECORDS SUMMARY | ~2019-10-27 | XMS | Encounter Summary ---
Demographics + + + | Address | [address] | | | [place] [address] | + + + | Home Phone [...] Providers + +------+ + | Care Remote Sensing Analyst Name | Role | Phone | [...] Eva ROUSE | | | | | [place], [place] | [address] | | | | | [address] | [place] [address] | | | | | [phone] | [phone] | | | | | | | [...] W | | | | | | [place], | | | | | | [place] [address] | | | | | | [phone] | | | | | | | | +--------+ + + + + | 11/20/ | Implant | Cardiology | Daljit Singletary, | Remote Device | | 2018 | Monitor | | [address] | Interrogation | | | | | [place], | (Primary Dx); | | | | | [place] [address] | Presence of | | | | | [phone] | permanent cardiac | | | | [...]
--- OUTSIDE RECORDS SUMMARY | ~2019-10-27 | XMS | Encounter Summary ---
Demographics + + + | Address | [address] | | | [place] [address] | + + + | Home Phone [...] Providers + +------+ + | Care Service Station Helper Name | Role | Phone | [...] 08/30/ | Refill | [facility] | Kirk French | Medication Refill | | 2019 | | [facility] | MD Brea [address] | | | | | [facility] [address] | [address] | | | | | [address] | [place] [address] | | | | | [place], [place] | [phone] | | | | | [address] | | | | | | [phone] | | | +--------+--------+ + + + [...] | | | | | | [place] [address] | | | | | | [phone] | | | | | | | | +--------+ + + + + | 11/20/ | Implant | Cardiology | Dalijt Singletary, | Remote Device | | 2018 | Monitor | | MD Chiquis Oro | Interrogation | | | | | [facility], | (Primary Dx); | | | | | [place] [address] | Presence of | | | | | [phone] | permanent cardiac | | | | [...]
--- OUTSIDE RECORDS SUMMARY | ~2019-10-27 | XMS | Encounter Summary ---
Demographics + + + | Address | [address] [place] [address] | | | [place] [address] | + + + | Home Phone [...] [place] | | | | | [address] | | + + + + + Care Team Providers + +------+ + | Care Metal Sprayer Production Name | Role | Phone | [...] | | | | | [facility]ST[facility] | [place], [place] | for Health | | | | | C | [address] | and Healing, | | | | | ECHOCARDIOGR | Phone: | Building 1 | | | | | AM, ADULT | [phone] | [place], [place] | | | | | | Fax: | [address] | | | | | | [phone] | Phone: | | | | | | | [phone] | +--------+--------+ + + + + Encounter Details +--------+ + + + + | Date | Type | Department | Care Team | Description | +--------+ + + + + | 02/03/ | Hospital | Cardiac | | | | 2010 | Encounter | Non-Invasive Testing | | | | | | at [facility] [address] | | | | | | Tremayne Crane Mailcode: | | | | | | [facility] [facility] | | | | | | Health and Healing, | | | | | | Building [address] | | | | | | [place], [place] | | | | | | [address] | | | | | | [phone] | | | +--------+ + + + [...]
--- OUTSIDE RECORDS SUMMARY | ~2019-10-27 | XMS | Encounter Summary ---
Demographics + + + | Address | [address] | | | [place] [address] | + + + | Home Phone [...] Team Providers + +------+ + | Care Racing Car Driver Name | Role | Phone [...] | 05/08/ | Telephone | [facility] | Emmanuel Daniel MD | Other | | 2019 | | GASTROENTEROLOGY | [address] [place] | | | | | [address] [place] | [address] [place], [place] | | | | | [address] [place], [place] | [address] | | | | | [address] | | | | | | [phone] | | | +--------+ + + + [...] [address] | | | | | | [place], | | | | | | [place] [address] | | | | | | [phone] | | | | | | | | +--------+ + + + + | 11/20/ | Implant | Cardiology | Daljit Singletary, | Remote Device | | 2018 | Monitor | | MD [address] [place] [address] | Interrogation | | | | | [place], | (Primary Dx); | | | | | [place] [address] | Presence of | | | | | [phone] | permanent cardiac | | | | [...]
--- OUTSIDE RECORDS SUMMARY | ~2019-10-27 | XMS | Encounter Summary ---
Demographics + + + | Address | [address] | | | [place] [address] | + + + | Home Phone [...] Providers + +------+ + | Care Carpenter Supervisor Name | Role | Phone | [...] | | | | [place] | | [address] Phone: | | | | | CYSTO/URETER | | [phone] | | | | | [place] | | Fax: | | | | | W/LITHOTRIPS | | [phone] | | | | | Y &INDWELL [...] | | | | | [address] | [place] | | | | | [place] | [address] | | | | | [address] | | | | | | [phone] | | | +--------+ + + + [...] +----+---+ + + | | 0 | [place] | | | | 8 | 43-degrees | | | | 2 | | | | | 7 | | | +----+---+ + + | | 0 | First | | | | 8 | Inc/Proc St | | | | 2 | | | | | 8 | | | +----+---+ + + | | 0 | [place] off | | | | 9 | [...] 04/13/19 1219 by | | eral | [id number] catheter system; | Dominga Steen RN | [...] | | | | | | [place] [address] | | | | | | [phone] | | | | | | | | +--------+ + + + + | 11/20/ | Implant | Cardiology | Daljit Singletary, | Remote Device | | 2018 | Monitor | | MD [place] | Interrogation | | | | | [place], | (Primary Dx); | | | | | [place] [address] | Presence of | | | | | [phone] | permanent cardiac | | | | [...] 8:23 | | | | | Starting [facility] 04/13/19 at 0823, | | AM PDT [...]
--- OUTSIDE RECORDS SUMMARY | ~2019-10-27 | XMS | Encounter Summary ---
Demographics + + + | Address | [address] | | | [place] [address] | + + + | Home Phone [...] + +------+ + | Care Contact Center Analyst Name | Role | Phone | [...] [place] | | | | | | [address] | | | | | | [phone] | | | +--------+ + + + [...] W | | | | | | [place], | | | | | | [place] [address] | | | | | | [phone] | | | | | | | | +--------+ + + + + | 11/20/ | Implant | Cardiology | Daljit Singletary, | Remote Device | | 2018 | Monitor | | [address] [facility] | Interrogation | | | | | [place], | (Primary Dx); | | | | | [place] [address] | Presence of | | | | | [phone] | permanent cardiac | | | | [...]
--- OUTSIDE RECORDS SUMMARY | ~2019-10-27 | XMS | Encounter Summary ---
Demographics + + + | Address | [address] | | | [place] [address] | + + + | Home Phone [...] Providers + +------+ + | Care Field Producer Name | Role | Phone | + +------+ + PCP | Unavailable | + +------+ + Encounter Details +--------+ + + + + | Date | Type | Department | Care Team | Description | +--------+ + + + + | 03/08/ | [facility] | [facility] | Emmanuel Daniel MD | | | 2006 | Encounter | MED CTR GENERIC OP | [address] | | | | | CONV DEPT [address] | [address] [place] | | | | | [place], | [address] | | | | | [place] [address] | | | | | | [phone] | | | +--------+ + + + [...] | | | | | | [place] [address] | | | | | | [phone] | | | | | | | | +--------+ + + + + | 11/20/ | Implant | Cardiology | Daljit Singletary, | Remote Device | | 2019 | Monitor | | MD [place] | Interrogation | | | | | [place], | (Primary Dx); | | | | | [place] [address] | Presence of | | | | | [phone] | permanent cardiac | | | | [...]
--- OUTSIDE RECORDS SUMMARY | ~2019-10-27 | XMS | Encounter Summary ---
Demographics + + + | Address | [address] | | | [place] [address] | + + + | Home Phone [...] Team Providers + +------+ + | Care Sewing Machine Operator Zipper Name | Role | Phone | + [...] + | 06/02/ | Telephone | [facility] | Daljit Singletary, | Other (symptoms) | | 2019 | | CARDIOLOGY [address] | MD [address] | | | | | [place], | [place], | | | | | [place] [address] | [place] [address] | | | | | [phone] | [phone] | | | | | | | [...] | | | | | | [place] [address] | | | | | | [phone] | | | | | | | | +--------+ + + + + | 11/20/ | Implant | Cardiology | Daljit Singletary, | Remote Device | | 2019 | Monitor | | MD [address] | Interrogation | | | | | [place], | (Primary Dx); | | | | | [place] [address] | Presence of | | | | | [phone] | permanent cardiac | | | | [...]
--- OUTSIDE RECORDS SUMMARY | ~2019-10-27 | XMS | Encounter Summary ---
Demographics + + + | Address | [address] | | | [place] [address] | + + + | Home Phone [...] Team Providers + +------+ + | Care Volunteer Manager Name | Role | Phone | + +------+ + | Kirk French MD | PCP | | + +------+ + Encounter Details +--------+ + + + + | Date | Type | Department | Care Team | Description | +--------+ + + + + | 08/29/ | Hospital | [facility] | Silvia | DVT (deep venous | | 2015 | Encounter | MED CTR ULTRASOUND | [place] [address] | thrombosis), | | | | [address] [place] | [place], | bilateral (HCC) | | | | [place], [place] | [place] [address] | | | | | [address] | [phone] | | | | | [phone] | | | +--------+ + + + [...] | | | | | | | #[id number], exp 07/2016 | | | | | [...] | | | | | | [place] [address] | | | | | | [phone] | | | | | | | | +--------+ + + + + | 11/20/ | Implant | Cardiology | Daljit Singletary, | Remote Device | | 2018 | Monitor | | MD [address] [place] [address] | Interrogation | | | | | [place], | (Primary Dx); | | | | | [place] [address] | Presence of | | | | | [phone] | permanent cardiac | | | | [...] fossa | [facility] | | in both lower extremities.. Grayscale [...] conveyed to the ordering provider, by the sports equipment racker, | | | immediately following the exam. [...] to the ordering provider, by the | |sports equipment racker, immediately following the exam. | | | [...] [address] | [place] | [phone] | | [facility] | | [address] | | | - IMAGING | | | | + + + + + documented in this encounter Visit Diagnoses + + | Diagnosis | + + | DVT (deep venous thrombosis), bilateral | + + documented in this encounter"
--- OUTSIDE RECORDS SUMMARY | ~2019-10-27 | XMS | Encounter Summary ---
Demographics + + + | Address | [address] | | | [place] [address] | + + + | Home Phone [...] Team Providers + +------+ + | Care Billing Specialist Name | Role | Phone | [...] | | | | CENTER [address] | [place], [place] | (Primary Dx) | | | | [place], [place] | [address] | | | | | [address] | | | | | | [phone] | | | +--------+ + + + [...] + + +---------+ + + | [place]-3 Fatty | CAPS, one capsule by | [...] W | | | | | | [place], | | | | | | [place] [address] | | | | | | [phone] | | | | | | | | +--------+ + + + + | 11/20/ | Implant | Cardiology | Daljit Singletary, | Remote Device | | 2018 | Monitor | | [address] [facility] | Interrogation | | | | | [place], | (Primary Dx); | | | | | [place] [address] | Presence of | | | | | [phone] | permanent cardiac | | | | [...] | | MEDICAL | | | | mL/min/[id number] than | | CENTER - | | [...] ST. | [address] | [place] | [phone] | | [facility] | | [address] | | | - LABORATORY | | [...] | | | | ANGELA MARADIAGA MD ([id number]) | | | | | | on [...] ST. | [address] | [place], [place] | [phone] | | [facility] | | [address] | | | - LABORATORY | | [...] | Lymphocytes | | K/uL | [facility] | | | | | | MEDICAL [...] | [address] | [place], [place] | [phone] | | [facility] | | [address] | | | - LABORATORY | | [...]
--- OUTSIDE RECORDS SUMMARY | ~2019-10-27 | XMS | Encounter Summary ---
Demographics + + + | Address | [address] | | | [place] [address] | + + + | Home Phone [...] Providers + +------+ + | Care Junior Mechanical Engineer Name | Role | Phone | [...] | 10/26/ | Refill | [facility] [place] | Kirk French | Medication Refill | | 2019 | | GASTROENTEROLOGY | MD [address] | | | | | [address] [place] | [address] | | | | | [address] [place], [place] | [place] [address] | | | | | [address] | [phone] | | | | | [phone] | | | +--------+--------+ + + + [...] | | | | | | [place] [address] | | | | | | [phone] | | | | | | | | +--------+ + + + + | 11/20/ | Implant | Cardiology | Daljit Singletary, | Remote Device | | 2018 | Monitor | | MD [address] [place] [address] | Interrogation | | | | | [place], | (Primary Dx); | | | | | [place] [address] | Presence of | | | | | [phone] | permanent cardiac | | | | [...]
--- OUTSIDE RECORDS SUMMARY | ~2019-10-27 | XMS | Encounter Summary ---
Demographics + + + | Address | [address] | | | [place] [address] | + + + | Home Phone [...] Providers + +------+ + | Care Clerk Of Works Name | Role | Phone | + +------+ + PCP | Unavailable | + +------+ + Encounter Details +--------+ + + + + | Date | Type | Department | Care Team | Description | +--------+ + + + + | 09/13/ | [facility] | [facility] | Jonathan, | | | 2009 | Encounter | MED CTR EMERGENCY | Martell Cr MD [address] | | | | | CENTER [address] | [place] | | | | | [place] | [place] [address] | | | | | [address] | [phone] | | | | | [phone] | | | +--------+ + + + [...] | | | | | [place], | | | | | | [place] [address] | | | | | | [phone] | | | | | | | | +--------+ + + + + | 11/20/ | Implant | Cardiology | Daljit Singletary, | Remote Device | | 2019 | Monitor | | MD [address] | Interrogation | | | | | [place], | (Primary Dx); | | | | | [place] [address] | Presence of | | | | | [phone] | permanent cardiac | | | | [...]
--- OUTSIDE RECORDS SUMMARY | ~2019-10-27 | XMS | Encounter Summary ---
Demographics + + + | Address | [address] | | | [place] [address] | + + + | Home Phone [...] Providers + +------+ + | Care Finisher Machine Name | Role | Phone | + +------+ + PCP | Unavailable | + +------+ + Encounter Details +--------+ + + + + | Date | Type | Department | Care Team | Description | +--------+ + + + + | 06/23/ | [facility] | [facility] | Arthur Page MD | | | 2007 - | Encounter | MED CTR MED ONC | [address] [facility] | | | | | [address] [place] | [place] | | | 06/25/ | | [place] [address] | [address] | | | 2007 | | [phone] | | | +--------+ + + + [...] | | | | | | [place] [address] | | | | | | [phone] | | | | | | | | +--------+ + + + + | 11/20/ | Implant | Cardiology | Daljit Singletary, | Remote Device | | 2019 | Monitor | | MD [address] | Interrogation | | | | | [place], | (Primary Dx); | | | | | [place] [address] | Presence of | | | | | [phone] | permanent cardiac | | | | [...]
--- OUTSIDE RECORDS SUMMARY | ~2019-10-27 | XMS | Encounter Summary ---
Demographics + + + | Address | [address] | | | [place] [address] | + + + | Home Phone [...] Providers + +------+ + | Care Radar Operator Name | Role | Phone | [...] + + | 08/14/ | Telephone | [facility] | Michael Amanda, | Appointment | | 2012 | | GROUP IMAGING [address] | [address] | | | | | [facility] | [place] | | | | | [place], [place] | [address] | | | | | [address] | | | | | | [phone] | | | +--------+ + + + [...] | | | | | | [place], | | | | | | [place] [address] | | | | | | [phone] | | | | | | | | +--------+ + + + + | 11/20/ | Implant | Cardiology | Daljit Singletary, | Remote Device | | 2018 | Monitor | | [address] [facility] | Interrogation | | | | | [place], | (Primary Dx); | | | | | [place] [address] | Presence of | | | | | [phone] | permanent cardiac | | | | [...]
--- OUTSIDE RECORDS SUMMARY | ~2019-10-27 | XMS | Encounter Summary ---
Demographics + + + | Address | [address] | | | [place] [address] | + + + | Home Phone [...] + + | 09/26/ | Office | [facility] | Kirk French | Weight loss (Primary | | 2018 | Visit | [facility] | MD [address] | Dx); Bipolar | | | | [facility] [address] | affective disorder, | | | | [address] | [place] [address] | remission status | | | | [place], [place] | [phone] | unspecified (HCC); | | | | [address] | | Mixed anxiety | | | | [phone] | | depressive disorder; | | | [...] CV LHC; Surgeon: Daljit Singletary MD; Location: [facility] CV LAB CARDIAC CATHERIZATION N/A 01/25/2019 Procedure: CV Cor Angio; Surgeon: Daljit Singletary MD; Location: [facility] CV LAB COLONOSCOPY N/A 12/24/2017 Procedure: COLONOSCOPY; Surgeon: Emmanuel Daniel MD; Location: [facility] MEDICAL PROCEDURE UNIT COLONOSCOPY N/A 01/05/2019 Procedure: COLONOSCOPY; Surgeon: Emmanuel Daniel MD; Location: [facility] MEDICAL PROCEDURE UNIT EGD 12/24/2017 HARDWARE REMOVAL KNEE ARTHROSCOPY Bilateral KNEE SURGERY 2003 meniscus-right LAMINECTOMY 1991 L3-4 LUMBAR DISCECTOMY 1991 L3-4 LUMBAR FUSION 01/2011 6 spine fusions NECK SURGERY NECK SURGERY 08/10/2012 Fusion. [place] PACEMAKER PLACEMENT 06/14/2009 [employer] ROTATOR CUFF REPAIR Bilateral 03/22/2013 SINUS SURGERY 1998 SPINAL FUSION STOMACH SURGERY UPPER GASTROINTESTINAL ENDOSCOPY N/A 12/24/2017 Procedure: EGD; Surgeon: Emmanuel Daniel MD; Location: [facility] MEDICAL PROCEDURE UNIT UPPER GASTROINTESTINAL ENDOSCOPY N/A 01/05/2019 Procedure: EGD; Surgeon: Emmanuel Daniel MD; Location: [facility] MEDICAL PROCEDURE UNIT URETEROSCOPY Left 04/13/2019 Procedure: Cystoscopy, Left ureteroscopy with laser lithotripsy, Left ureteral stent place ment; Surgeon: Matthew Uriarte MD; Location: [facility] MAIN OR VASECTOMY Social History Socioeconomic History [...] ONE TABLET UNDER THE TONGUE EVERY 5 [place] NUTES NEEDED FOR CHEST PAIN 250 tablet 0 [place]-3 Fatty Acids (SALMON OIL-1000 PO) CAPS, one capsule by mouth daily twice daily ondansetron (ZOFRAN ODT) 4 mg disintegrating tablet Take 4 mg by mouth every 8 hours as needed for Nausea. ONE TOUCH DELICA LANCETS [facility] [...] PLT 169 06/02/2019 No results found for: VOSHVBKV12 No results found for: FOLATE No results [...] Co multiple ER visits Going again to [facility] tomorrow Already followed by [facility] in [...] dollars a month. We will defer to [facility], perhaps to have some sort of a [...] | | | | | | [place] [address] | | | | | | [phone] | | | | | | | | +--------+ + + + + | 11/20/ | Implant | Cardiology | Daljit Singletary, | Remote Device | | 2018 | Monitor | | MD [address] | Interrogation | | | | | [place], | (Primary Dx); | | | | | [place] [address] | Presence of | | | | | [phone] | permanent cardiac | | | | [...]
--- OUTSIDE RECORDS SUMMARY | ~2019-10-27 | XMS | Encounter Summary ---
Demographics + + + | Address | [address] | | | [place] [address] | + + + | Home Phone [...] Providers + +------+ + | Care State Tested Nursing Assistant Name | Role | Phone | [...] + | 04/24/ | Office | [facility] | Silvia, | Symptomatic PVCs | | 2012 | Visit | CARDIOLOGY [address] | [place] [address] | (Primary Dx); CAD; | | | | [place], | [place], | Hyperlipidemia; | | | | [place] [address] | [place] [address] | PACEMAKER, PERMANENT | | | | [phone] | [phone] | - [employer] | | | | [...] tablet by mouth Daily. 30 tablet 6 [place]-3 Fatty Acids (SALMON OIL-1000 PO) CAPS, one [...] Reviewed records from PCP and notes from [facility]. Assessment: 1. Symptomatic PVCs status post ablation: [...] performed by Dr. Gambino at [facility] on 01/30/2013. Patient had spontaneous PVCs [...] to go back in 3 days to [place] for an attempt of ablation under general [...] He is upgraded to class I of [place] 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 There are no [...] made to ensure accuracy; however, inadvertent computerized nurse ob errors may be pre sent. documented in this encounter Plan of Treatment +--------+ + + + + | Date | Type | Specialty | Care Team | Description | +--------+ + + + + | 11/09/ | Office | Cardiology | Silvia, | | | 2018 | Visit | | [address] [address] | | | | | | [place], | | | | | | [place] [address] | | | | | | [phone] | | | | | | | | +--------+ + + + + | 11/20/ | Implant | Cardiology | Daljit Singletary, | Remote Device | | 2018 | Monitor | | MD [facility] | Interrogation | | | | | [place], | (Primary Dx); | | | | | [place] [address] | Presence of | | | | | [phone] | permanent cardiac | | | | [...] Coronary atherosclerosis of unspecified type of vessel, quileute or graft | + + | Hyperlipidemia Other and unspecified hyperlipidemia | + + | PACEMAKER, PERMANENT - [employer] 06/14/09GRANT Cardiac pacemaker in situ | + + documented in this encounter
--- OUTSIDE RECORDS SUMMARY | ~2019-10-27 | XMS | Encounter Summary ---
Demographics + + + | Address | [address] | | | [place] [address] | + + + | Home Phone [...] Providers + +------+ + | Care Retail Analytics Manager Name | Role | Phone | [...] + + | 01/05/ | Office | [facility] | Silvia, | Pacemaker - | | 2018 | Visit | CARDIOLOGY [address] | [place] [address] | [employer]tronic - [id number] | | | | [place], | [place], | Adapta - Implanted | | | | [place] [address] | [place] [address] | 06/14/2009 (Primary | | | | [phone] | [phone] | Dx); Chest pain, | | | [...] involving | | | | | | lime coronary | | | | | | artery of lime | | | | | | heart [...] of non-critical coronary artery d isease involving lime coronary artery of lime heart without angina pectoris, essential h ypertension, [...] pain. He went to the ER in [place] because th e NTG didn't relieved the pain. He was diagnosed with bronchitis. Otherwise he has had no ot her symptoms. He has had a good energy level. He tries to stay active. He has joined a [employer] gym and trying to exercise more often. [...] Preventative health care Coronary artery disease involving lime coronary artery of lime heart without angina pectoris Cannabis abuse, daily [...] 3RD DOSE, CALL 911 100 tablet 3 [place]-3 Fatty Acids (SALMON OIL-1000 PO) CAPS, one [...] RESULTS reviewed during visit today primarily from [facility]: LIPID Lab Results Component Value Date [...] 131 (A) 10/18/2017 I reviewed records from [facility] for office visit on 01/2017 whic [...] overload. 2. Non-critical Coronary artery disease involving lime coronary a rtery of lime heart without angina pectoris: A. Normal exercise [...] to go back in 3 days to [place] for an attempt of ablation under general [...] normal stable device function. Estimated remaining [facility] longevity is 3.5 years.. 5. [...] this chart may have been created with [employer] voice recognition software. Occasi onal wrong-word or [...] | | | | | | [place] [address] | | | | | | [phone] | | | | | | | | +--------+ + + + + | 11/20/ | Implant | Cardiology | Sydni Singletary, | Remote Device | | 2019 | Monitor | | MD [address] [facility] | Interrogation | | | | | [place], | (Primary Dx); | | | | | [place] [address] | Presence of | | | | | [phone] | permanent cardiac | | | | [...] involving | | | | | | lime coronary | | | | | | artery of lime | | | | | | heart [...] SYDNI | | | | | | ([id number]) on 01/06/2018 | | | | | [...] + + | Coronary artery disease involving lime coronary artery of lime heart without | | angina pectoris | + + | Hyperlipidemia, mixed Mixed hyperlipidemia | + + | Hypertension, unspecified type | + + | Syncope, unspecified syncope type | + + | Ascending thoracic aortic aneurysm (HCC) Thoracic aneurysm without mention of rupture | + + documented in this encounter
--- OUTSIDE RECORDS SUMMARY | ~2019-10-27 | XMS | Encounter Summary ---
Demographics + + + | Address | [address] | | | [place] [address] | + + + | Home Phone [...] Team Providers + +------+ + | Care Pressure Washer Name | Role | Phone [...] Encounter | MEDICAL CENTER | MD Kelsey [address] | Pain | | | | CLINICAL DECISION | CHRISTOPH HERNANDEZ | | | 05/25/ | | [address] | [address] | | | 2008 | | [place], [place] | [phone] | | | | | [address] | | | | | | [phone] | | | +--------+ + + + [...] W | | | | | | [place], | | | | | | [place] [address] | | | | | | [phone] | | | | | | | | +--------+ + + + + | 11/20/ | Implant | Cardiology | Daljit Singletary, | Remote Device | | 2018 | Monitor | | [address] | Interrogation | | | | | [place], | (Primary Dx); | | | | | [place] [address] | Presence of | | | | | [phone] | permanent cardiac | | | | [...] Performed At | + + + | [id number] | | | Page 1 RADIOLOGY | | | CDU 56238/ | | | [facility] | | | CENTER NAME: [place] [address] | | | | | | | | | DATE OF : 1960 ORDER NUMBER: | | | [id number] EXAM DATE/TIME: 05/25/2009 08:00 A ORDERING PHYSICIAN: | | | CHI FANG ORDER DETAIL: [id number] / / [facility] EXAM | | | DESCRIPTION: NM [...] | | administration of 14.9 mCi of nkwuoaifqd-68g-idnoagr Myoview. Stress | | | images postinjection [...] | | | images. 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 | | [...] | A | | P | | TSG/dc/[id number]/ | | cc: ANGELA MARADIAGA MD | | FEMI MARIE MD | | CHI FANG MD | | AMY BANEGAS DO | + + ECHO Complete (05/25/2009 7:50 AM PDT) + + | Specimen | + + | | + + + + + | Narrative | Performed At | + + + | [id number] | | | Page 1 ECHO [facility] NAME: | | | [place] [address] MEDICAL RECORD #: | | | [id number] | | | DATE OF : 1960 ORDER | | | NUMBER: [id number] EXAM DATE/TIME: 05/25/2009 07:34 PERFORMING | | [...] Excursion: | | | 1.89 cm E-F [place]: 0.08 m/s HR: 43.51 BPM AV maxP.11 [...] | | | 0.33 m/s TV Dec [place]: 1.73 m/s2 TV Dec Time: 344.24 ms TV | | | E Bravo: 0.59 m/s TV E/A Ratio: 1.80 TV maxP.40 mmHg TV | | | meanP.44 mmHg TV Vmax: 0.59 m/s TV Vmean: 0.30 m/s TV | | | VTI: 22.88 cm Profiler Operator: ANTHONY Authenticated by: Edwardo Tee | | | Carlos WINKLER Report Date/Time: 05-25-2009 10:19:52 | | + + + + + | Procedure Note | + + | Kalpesh Brown Conversion - 07/17/2019 2:13 AM [facility] [id number] | | Page [address] [place] [address] NAME: [place] | | [address] : ACCOUNT #: | | [id number]: DATE OF : 1960ORDER NUMBER: | | [id number] DATE/TIME: 05/25/2009 07:34PERFORMING PHYSICIAN: Edwardo Gonzalez | [...] mlLAESV Index (A-L): 26.03 ml/m2LAAs A2C: 14.93 [id number] A-L | | A2C: 44.50 mlLALs A2C: 4.25 cmLAAs A4C: 18.42 [id number] A-L A4C: 55.79 mlLALs | | A4C: 5.16 cmAo Diam: 3.91 cmAV Cusp: 2.23 cmLA Diam: 3.79 cmLA/Ao: 0.96%FS: | | 43.37 %EDV(Teich): 146.19 mlEF(Teich): 73.99 %ESV(Teich): 38.01 mlIVSd: 1.57 | | cmIVSs: 1.79 cmLVIDd: 5.48 cmLVIDs: 3.10 cmLVPWd: 1.32 cmLVPWs: 1.79 | | cmSV(Teich): 108.18 mlD-E Excursion: 1.89 cmE-F [place]: 0.08 m/sHR: 43.51 BPMAV | | maxP.11 mmHgAV meanP.33 mmHgAV Vmax: 1.74 m/Zabrina Vmean: 1.06 m/Zabrina VTI: | | 35.51 cmAVA Vmax: 2.77 cm2AVA (VTI): 2.54 ce5FQUO Dopp: 3.00 l/uohc6WNVP Dopp: | | 6.33 l/minHR: 70.25 BPMLVOT maxP.78 mmHgLVOT meanP.02 mmHgLVSI Dopp: | | 42.76 ml/m2LVSV Dopp: 90.23 mlLVOT Vmax: 1.30 m/sLVOT Vmean: 0.80 m/sLVOT VTI: | | 24.35 cmMV A Bravo: 0.70 m/sMV DecT: 242.46 msMV E Bravo: 0.91 m/sMV E/A Ratio: | | 1.31MV maxP.40 mmHgMV meanP.82 mmHgMV Vmax: 0.92 m/sMV Vmean: 0.37 m/sMV | | VTI: 26.47 cmMVA (VTI): 3.40 vl3Gticbs e': 0.08 m/sSeptal E/e': 11.24HR: | | 60.55 BPMPV maxP.04 mmHgPV meanP.39 mmHgPV Vmax: 0.87 m/sPV Vmean: 0.55 | | m/sPV VTI: 19.09 cmRAP: 5 mmHgRVSP: 21.72 mmHgTR maxP.72 mmHgTR Vmax: | | 2.04 m/sTV A Bravo: 0.33 m/sTV Dec [place]: 1.73 m/s2TV Dec Time: 344.24 msTV E Bravo: | | 0.59 m/sTV E/A Ratio: 1.80TV maxP.40 mmHgTV meanP.44 mmHgTV Vmax: 0.59 | | m/sTV Vmean: 0.30 m/sTV VTI: 22.88 cm Profiler Operator: KVWAuthenticated by: Edwardo Tee | | Carlos [...] | |D-E Excursion: 1.89 cm | |E-F [place]: 0.08 m/s | |HR: 43.51 BPM | [...] A Bravo: 0.33 m/s | |TV Dec [place]: 1.73 m/s2 | |TV Dec Time: 344.24 ms | |TV E Bravo: 0.59 m/s | |TV E/A Ratio: 1.80 | |TV maxP.40 mmHg | |TV meanP.44 mmHg | |TV Vmax: 0.59 m/s | |TV Vmean: 0.30 m/s | |TV VTI: 22.88 cm | | | |Profiler Operator: KVW | |Authenticated by: Edwardo Gonzalez MD | |Report Date/Time: 05-25-2009 10:19:52 | + + CT Head wo Contrast (05/24/2009 12:58 PM PDT) + + | Specimen | + + | | + + + + + | Narrative | Performed At | + + + | [id number] | | | Page 1 RADIOLOGY | | | CDU 62394/ | | | [facility] | | | CENTER NAME: [place] [address] | | | | | | | | | DATE OF : 1960 ORDER NUMBER: | | | [id number] EXAM DATE/TIME: 05/24/2009 12:47 P ORDERING PHYSICIAN: [...] | | asymmetrically dense vessel about the algaaciq of Pearson. No | | | hydrocephalus. [...] 08:45 P P P | | | [facility]/tp/[id number]/ cc: MD ANGELA AVENDAÑO MD | | | MD AMY HAM DO | | + + + + + | Procedure Note | + + | Kalpesh Brown Conversion - 07/17/2019 2:13 AM PDT | | [id number] Page 1 | | RADIOLOGY CDU 10017/ | | OPO | | [facility] NAME: PINA GAY | | [place] [address] | | | | DATE OF : 1960 | | | | ORDER NUMBER: [id number] | | EXAM DATE/TIME: 05/24/2009 12:47 P [...] is no asymmetrically dense vessel about the algaaciq of Pearson. No | | hydrocephalus. Some [...] | P | | P | | [facility]/tp/[id number]/ | | cc: VINAY HILL MD | | ANGELA MARADIAGA MD | | FEMI MARIE MD | | AMY BANEGAS, DO | + + XR Chest 2 Vws (05/24/2009 11:31 AM PDT) + + | Specimen | + + | | + + + + + | Narrative | Performed At | + + + | [id number] | | | Page 1 RADIOLOGY | | | [facility] [address]/ | | | OPO [facility] | | | CENTER [place]: [place] [address] | | | | | | | | | DATE OF : 1960 ORDER NUMBER: | | | [id number] EXAM DATE/TIME: 05/24/2009 11:19 A ORDERING PHYSICIAN: [...] DT: | | | 05/24/2009 05:38 P [id number]/[id number]/ cc: VINAY HILL MD | | | MD FEMI FOSS MD JOSEPH | | | P BASSAM DO | | + + + + + | Procedure Note | + + | Kalpesh Brown Conversion - 07/17/2019 2:13 AM PDT | | [id number] Page 1 | | RADIOLOGY CDU 73419/ | | OPO | | [facility] NAME: PINA GAY | | [place] [address] | | | | DATE OF : 1960 | | | | ORDER NUMBER: [id number] | | EXAM DATE/TIME: 05/24/2009 11:19 A [...] | P | | P | | [facility]//[id number]/ | | cc: VINAY HILL MD | | ANGELA MARADIAGA MD | | FEMI MARIE MD | | AMY BANEGAS DO | + + documented in this encounter Visit Diagnoses + + | Diagnosis | + + | Chest pain, unspecified | + + documented in this encounter"
--- OUTSIDE RECORDS SUMMARY | ~2019-10-27 | XMS | Encounter Summary ---
Demographics + + + | Address | [address] | | | [place] [address] | + + + | Home Phone [...] Providers + +------+ + | Care Grades 1 Thru 6 Visiting Teacher Name | Role | Phone [...] 2012 | | CARDIOLOGY [address] | SMALL LOT OPERATOR [address] | | | | | [place], | [place] [facility], [place] | | | | | [place] [address] | [address] | | | | | [phone] | | | +--------+ + + + [...] | | | | | | [place] [address] | | | | | | [phone] | | | | | | | | +--------+ + + + + | 11/20/ | Implant | Cardiology | Daljit Singletary, | Remote Device | | 2018 | Monitor | | MD [address] | Interrogation | | | | | [place], | (Primary Dx); | | | | | [place] [address] | Presence of | | | | | [phone] | permanent cardiac | | | | [...]
--- OUTSIDE RECORDS SUMMARY | ~2019-10-27 | XMS | Encounter Summary ---
Demographics + + + | Address | [address] | | | [place] [address] | + + + | Home Phone [...] + + | 01/05/ | Anesthesia | [facility] | Jarett Barakat | | | 2019 | Event | MED CTR MP INTRA OP | P, MD [address] | | | | | [address] | [place], [place] | | | | | [place], [place] | [address] | | | | | [address] | [phone] | | | | | [phone] | | | +--------+ + + + [...] Patient transported to [facility], | | | 4 | | Monitors [...] | 01/05/19950 by | | eral | dyuy-ddz-srugoq catheter system; | Kasie Natarajan RN | [...] Placement Time: 843 (created via | Jarett Baraakt, | Karina Dooley, | | | procedure [...] | | | | | | [place] [address] | | | | | | [phone] | | | | | | | | +--------+ + + + + | 11/20/ | Implant | Cardiology | Daljit Singletary, | Remote Device | | 2018 | Monitor | | [facility] | Interrogation | | | | | [place], | (Primary Dx); | | | | | [place] [address] | Presence of | | | | | [phone] | permanent cardiac | | | | [...] | | | | | Vomiting, Starting [facility] 01/05/19 at | | AM PST [...]
--- OUTSIDE RECORDS SUMMARY | ~2019-10-27 | XMS | Encounter Summary ---
Demographics + + + | Address | [address] | | | [place] [address] | + + + | Home Phone [...] Providers + +------+ + | Care Insurance Follow Up Specialist Name | Role | Phone | [...] | | | [place], [place] | [place] [address] | | | | | | [address] | Phone: | | | | | | Phone: | [phone] | | | | | | [phone] | Fax: | | | | | | Fax: | [phone] | | | | | | [phone] | | +--------+ + + + + + Reason for Visit + + + | Reason | Comments | + + + | Medicare Wellness | | + + + Encounter Details +--------+---------+ + + + | Date | Type | Department | Care Team | Description | +--------+---------+ + + + | 07/25/ | Office | [facility] | Michael Amanda, | Preventative health | | 2014 | Visit | MEDICINE PIERCE | DO [address] | care (Primary Dx); | | | | [address] | [place] | Cannabis abuse, | | | | [place] | [address] | daily use; Urinary | | | | [address] | | frequency; | | | | [phone] | | Incontinence; | | | | [...] the original. . MEDICARE WELLNESS VISIT : oMe Sanchez is a 54 y.o. 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 documented in this en counter Plan of Treatment +--------+ + + + + | Date | Type | Specialty | Care Team | Description | +--------+ + + + + | 11/09/ | Office | Cardiology | Silvia, | | | 2018 | Visit | | PARISA Vernon [address] | | | | | | [place], | | | | | | [place] [address] | | | | | | [phone] | | | | | | | | +--------+ + + + + | 11/20/ | Implant | Cardiology | Joshcrispincherelle Shaistakenneth, | Remote Device | | 2018 | Monitor | | [facility] | Interrogation | | | | | [place], | (Primary Dx); | | | | | [place] [address] | Presence of | | | | | [phone] | permanent cardiac | | | | [...] - Primary Routine general medical examination at [facility] | | care facility | + [...]
--- OUTSIDE RECORDS SUMMARY | ~2019-10-27 | XMS | Encounter Summary ---
Demographics + + + | Address | [address] | | | [place] [address] | + + + | Home Phone [...] + +------+ + | Care Senior Engineering Manager Name | Role | Phone [...] CARDIOLOGY [address] | MD [address] [place] | reprogramming/check | | | | [place], | [place], | DO NOT DELETE | | | | [place] [address] | [place] [address] | (Primary Dx); | | | | [phone] | [phone] | Pacemaker - | | | | [...] | | | | | | [place] [address] | | | | | | [phone] | | | | | | | | +--------+ + + + + | 11/20/ | Implant | Cardiology | Daljit Singletary, | Remote Device | | 2019 | Monitor | | [address] [facility] | Interrogation | | | | | [place], | (Primary Dx); | | | | | [place] [address] | Presence of | | | | | [phone] | permanent cardiac | | | | [...]
--- OUTSIDE RECORDS SUMMARY | ~2019-10-27 | XMS | Encounter Summary ---
Demographics + + + | Address | [address] | | | [place] [address] | + + + | Home Phone [...] Providers + +------+ + | Care Printed Circuit Boards Router Name | Role | Phone | + +------+ + PCP | Unavailable | + +------+ + Encounter Details +--------+ + + + + | Date | Type | Department | Care Team | Description | +--------+ + + + + | 01/31/ | Hospital | [facility] | | | | 2008 | Encounter | MED CTR EMERGENCY | | | | | | [place] [address] | | | | | | [place] | | | | | | [address] | | | | | | [phone] | | | +--------+ + + + [...] | | | | | | [place] [address] | | | | | | [phone] | | | | | | | | +--------+ + + + + | 11/20/ | Implant | Cardiology | Daljit Singletary, | Remote Device | | 2018 | Monitor | | [address] [facility] | Interrogation | | | | | [place], | (Primary Dx); | | | | | [place] [address] | Presence of | | | | | [phone] | permanent cardiac | | | | [...]
--- OUTSIDE RECORDS SUMMARY | ~2019-10-27 | XMS | Encounter Summary ---
Demographics + + + | Address | [address] | | | [place] [address] | + + + | Home Phone [...] Providers + +------+ + | Care Claims Agent Right Of Way Name | Role | Phone | + [...] 2012 | | Conversion Location | [address] | | | | | [phone] | [address] [place], | | | | | | [place] [address] | | | | | | [phone] | | | | | | | [...] | | | | | | [place] [address] | | | | | | [phone] | | | | | | | | +--------+ + + + + | 11/20/ | Implant | Cardiology | Daljit Singletary, | Remote Device | | 2019 | Monitor | | [address] [facility] | Interrogation | | | | | [place], | (Primary Dx); | | | | | [place] [address] | Presence of | | | | | [phone] | permanent cardiac | | | | [...]
--- OUTSIDE RECORDS SUMMARY | ~2019-10-27 | XMS | Encounter Summary ---
Demographics + + + | Address | [address] | | | [place] [address] | + + + | Home Phone [...] Team Providers + +------+ + | Care Churn Driller Name | Role | Phone | [...] + | 06/20/ | Telephone | [facility] | Daljit Singletary, | Chest Pain | | 2018 | | CARDIOLOGY [address] | MD [address] [place] | | | | | [place], | [place], | | | | | [place] [address] | [place] [address] | | | | | [phone] | [phone] | | | | | | | [...] [place], | | | | | | [place] [address] | | | | | | [phone] | | | | | | | | +--------+ + + + + | 11/20/ | Implant | Cardiology | Daljit Singletary, | Remote Device | 2018 | Monitor | | [facility] | Interrogation | | | | | [place], | (Primary Dx); | | | | | [place] [address] | Presence of | | | | | [phone] | permanent cardiac | | | | [...]
--- OUTSIDE RECORDS SUMMARY | ~2019-10-27 | XMS | Encounter Summary ---
Demographics + + + | Address | [address] | | | [place] [address] | + + + | Home Phone [...] Providers + +------+ + | Care Hand Wood Sander Name | Role | Phone | + +------+ + PCP | Unavailable | + +------+ + Encounter Details +--------+ + + + + | Date | Type | Department | Care Team | Description | +--------+ + + + + | 11/14/ | [facility] | [facility] | William Hirsch | | | 1999 | Encounter | MED CTR EMERGENCY | MD Cristobal [address] | | | | | CENTER [address] | [address] [place] | | | | | [place] | [place] [address] | | | | | [address] | [phone] | | | | | [phone] | | | +--------+ + + + [...] | | | | | | [place] [address] | | | | | | [phone] | | | | | | | | +--------+ + + + + | 11/20/ | Implant | Cardiology | Daljit Singletary, | Remote Device | | 2018 | Monitor | | MD [address] | Interrogation | | | | | [place], | (Primary Dx); | | | | | [place] [address] | Presence of | | | | | [phone] | permanent cardiac | | | | [...]
--- OUTSIDE RECORDS SUMMARY | ~2019-10-27 | XMS | Encounter Summary ---
Demographics + + + | Address | [address] | | | [place] [address] | + + + | Home Phone [...] + +------+ + | Care Sewing Machine Assembler Name | Role | Phone | + +------+ + | Kirk French MD | PCP | | + +------+ + Encounter Details +--------+ + + + + | Date | Type | Department | Care Team | Description | +--------+ + + + + | 12/23/ | Emergency | [facility] | Cristal Alexander, | Chronic neck pain; | | 2015 | | MEDICAL CENTER | DO [address] | Headache(784.0) | | | | EMERGENCY CENTER | [place] [address] | | | | | [address] | [phone] | | | | | [place], [place] | | | | | | [address] | | | | | | [phone] | | | +--------+ + + + [...] + + + +---------+ + + | [place]-3 Fatty | CAPS, one capsule by | [...] | | | | | | | #[id number], exp 07/2016 | | | | | [...] | | | | | | [place] [address] | | | | | | [phone] | | | | | | | | +--------+ + + + + | 11/20/ | Implant | Cardiology | Daljit Singletary, | Remote Device | | 2018 | Monitor | | [facility] | Interrogation | | | | | [place], | (Primary Dx); | | | | | [place] [address] | Presence of | | | | | [phone] | permanent cardiac | | | | [...] Conversion - 07/07/2019 5:05 AM PDT PINA [id number] years MaleCT | | CERVICAL SPINE WO [...]
--- OUTSIDE RECORDS SUMMARY | ~2019-10-27 | XMS | Encounter Summary ---
Demographics + + + | Address | [address] | | | [place] [address] | + + + | Home Phone [...] Team Providers + +------+ + | Care Exterior Interior Specialist Name | Role | Phone | [...] + | 12/09/ | Telephone | [facility] | Emmanuel Daniel MD | Appointment (EGD, | | 2017 | | GASTROENTEROLOGY | [address], [place] | colon Rescheduled to | | | | [address] [place] | [address] [place] | December 24 due to | | | | [address] [place] | [address] | illness) | | | | [address] | | | | | | [phone] | | | +--------+ + + + [...] | | | | | | [place] [address] | | | | | | [phone] | | | | | | | | +--------+ + + + + | 11/20/ | Implant | Cardiology | Daljit Singletary, | Remote Device | | 2019 | Monitor | | MD Sim [facility] | Interrogation | | | | | [place], | (Primary Dx); | | | | | [place] [address] | Presence of | | | | | [phone] | permanent cardiac | | | | [...]
--- OUTSIDE RECORDS SUMMARY | ~2019-10-27 | XMS | Encounter Summary ---
Demographics + + + | Address | [address] | | | [place] [address] | + + + | Home Phone [...] + + | 07/01/ | Hospital | [facility] | Scotty Galdamez, | DDD (degenerative | | 2018 | Encounter | MED CTR XRAY [address] | IMPREGNATOR OPERATOR [address] | disc disease), | | | | [place] | [address] | lumbar; Chronic | | | | [place] [address] | [place] [address] | left-sided low back | | | | [phone] | [phone] | pain with left-sided | | | [...] + + + +---------+ + + | [place]-3 Fatty | CAPS, one capsule by | [...] | | | | | | [place] [address] | | | | | | [phone] | | | | | | | | +--------+ + + + + | 11/20/ | Implant | Cardiology | Daljit Singletary, | Remote Device | | 2019 | Monitor | | MD [address] | Interrogation | | | | | [place], | (Primary Dx); | | | | | [place] [address] | Presence of | | | | | [phone] | permanent cardiac | | | | [...]
--- OUTSIDE RECORDS SUMMARY | ~2019-10-27 | XMS | Encounter Summary ---
Demographics + + + | Address | [address] | | | [place] [address] | + + + | Home Phone [...] Team Providers + +------+ + | Care Arboreal Scientist Name | Role | Phone | + +------+ + PCP | Unavailable | + +------+ + Encounter Details +--------+ + + + + | Date | Type | Department | Care Team | Description | +--------+ + + + + | 10/26/ | Hospital | [facility] | | | | 1994 | Encounter | MED CTR EMERGENCY | | | | | | CENTER [address] | | | | | | [place] | | | | | | [address] | | | | | | [phone] | | | +--------+ + + + [...] | | | | | | [place] [address] | | | | | | [phone] | | | | | | | | +--------+ + + + + | 11/20/ | Implant | Cardiology | Daljit Singletary, | Remote Device | | 2018 | Monitor | | [facility] | Interrogation | | | | | [place], | (Primary Dx); | | | | | [place] [address] | Presence of | | | | | [phone] | permanent cardiac | | | | [...]
--- OUTSIDE RECORDS SUMMARY | ~2019-10-27 | XMS | Encounter Summary ---
Demographics + + + | Address | [address] | | | [place] [address] | + + + | Home Phone [...] Providers + +------+ + | Care Stonecutter Name | Role | Phone | + +------+ + | Kirk French MD | PCP | | + +------+ + Encounter Details +--------+ + + + + | Date | Type | Department | Care Team | Description | +--------+ + + + + | 10/25/ | Hospital | [facility] | Kirk French | Aneurysm (HCC) | | 2017 | Encounter | MED CTR ULTRASOUND | D, MD [address] | | | | | [address] [place] | [address] | | | | | [place], [place] | [place] [address] | | | | | [address] | [phone] | | | | | [phone] | | | | | | | [...] + + +---------+ + + | [place] Fatty | CAPS, one capsule by | [...] | | | | | | [place] [address] | | | | | | [phone] | | | | | | | | +--------+ + + + + | 11/20/ | Implant | Cardiology | Daljit Singletary, | Remote Device | | 2019 | Monitor | | [address] [facility] | Interrogation | | | | | [place], | (Primary Dx); | | | | | [place] [address] | Presence of | | | | | [phone] | permanent cardiac | | | | [...]
--- OUTSIDE RECORDS SUMMARY | ~2019-10-27 | XMS | Encounter Summary ---
Demographics + + + | Address | [address] | | | [place] [address] | + + + | Home Phone [...] Team Providers + +------+ + | Care Shield Installer Name | Role | Phone | [...] + + | 08/14/ | Telephone | [facility] | Michael Amanda, | Appointment | | 2012 | | [facility] [address] | DO [address] | | | | | [facility] | [place] | | | | | [place], [place] | [address] | | | | | [address] | | | | | | [phone] | | | +--------+ + + + [...] W | | | | | | [place], | | | | | | [place] [address] | | | | | | [phone] | | | | | | | | +--------+ + + + + | 11/20/ | Implant | Cardiology | Daljit Singletary, | Remote Device | | 2018 | Monitor | | [address] [facility] | Interrogation | | | | | [place], | (Primary Dx); | | | | | [place] [address] | Presence of | | | | | [phone] | permanent cardiac | | | | [...]
--- OUTSIDE RECORDS SUMMARY | ~2019-10-27 | XMS | Encounter Summary ---
Demographics + + + | Address | [address] | | | [place] [address] | + + + | Home Phone [...] Providers + +------+ + | Care [employer] Name | Role | Phone | [...] Refill | | 2014 | | MEDICINE [place] | DO [address] | | | | | [address] | [place] | | | | | [place], [place] | [address] | | | | | [address] | | | | | | [phone] | | | +--------+--------+ + + + [...] W | | | | | | [place], | | | | | | [place] [address] | | | | | | [phone] | | | | | | | | +--------+ + + + + | 11/20/ | Implant | Cardiology | Daljit Singletary, | Remote Device | | 2019 | Monitor | | [address] | Interrogation | | | | | [place] [place], | (Primary Dx); | | | | | [place] [address] | Presence of | | | | | [phone] | permanent cardiac | | | | [...]
--- OUTSIDE RECORDS SUMMARY | ~2019-10-27 | XMS | Encounter Summary ---
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 Pt was going through [facility] for opiate medications prior to [...] W | | | | | | [place], | | | | | | [place] [address] | | | | | | [phone] | | | | | | | | +--------+ + + + + | 11/20/ | Implant | Cardiology | Daljit Singletary, | Remote Device | | 2019 | Monitor | | MD [address] [facility] | Interrogation | | | | | [place], | (Primary Dx); | | | | | [place] [address] | Presence of | | | | | [phone] | permanent cardiac | | | | [...]
--- OUTSIDE RECORDS SUMMARY | ~2019-10-27 | XMS | Encounter Summary ---
Demographics + + + | Address | [address] | | | [place] [address] | + + + | Home Phone [...] Providers + +------+ + | Care Library Services Assistant Name | Role | Phone [...] unspecified | [address] | [address] | | | | | type | [address] | [place], | | | | | Procedures | [place], | [place] | | | | | [place] | [place] [address] | [address] | | | | | Stress Test | Phone: | Phone: | | | | | (Vasodilator | [phone] | [phone] | | | | | ) CHG | Fax: | Fax: | | | | | MYOCARDIAL | [phone] | [phone] | | | | | SPECT | [...] | type | [address] | [address] | | | | | Procedures | [place] | [place], | | | | | FUP | [place] | [place] [address] | | | | | | [address] | Phone: | | | | | | Phone: | [phone] | | | | | | [phone] | Fax: | | | | | | Fax: | [phone] | | | | | | [phone] | | +--------+ + + + + + Encounter Details +--------+---------+ + + + | Date | Type | Department | Care Team | Description | +--------+---------+ + + + | 06/27/ | Office | [facility] | Sydni Singletary, | Pacemaker | | 2017 | Visit | CARDIOLOGY [address] | [address] [facility] | reprogramming/check | | | | [place], | 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 2. Non-critical Coronary artery disease involving sokaogon coronary artery of sokaogon heart [facility] angina pectoris: A. Normal exercise sestamibi stress test on 05/25/09. LVEF by [facility] ed SPECT was 53%. B. [...] cannot completely be ruled out . D. [facility] 12/25/13, shows non critical coronary [...] He is in a class I of [employer] functiona l class. There is [...] reviewed and edited this note. Allyson Curtis, Nutrition Teacher 06/27/2018 I, Sydni Singletary MD, personally performed the services described in this documentation, as scribed in my presence and it is both accurate and complete. Allyson Curtis, Med Ass t 06/27/2018 14:15 Electronically signed by: Sydni Singletary MD [facility] 06/27/2018 Portions of this chart may have been created with JamStar voice recognition software. Occasi onal wrong-word or [...] | | | | | | [place] [address] | | | | | | [phone] | | | | | | | | +--------+ + + + + | 11/20/ | Implant | Cardiology | Sydni Singletary, | Remote Device | | 2019 | Monitor | | MD [address] [facility] | Interrogation | | | | | [place], | (Primary Dx); | | | | | [place] [address] | Presence of | | | | | [phone] | permanent cardiac | | | | [...] SYDNI | | | | | | ([id number]) on 06/27/2018 | | | | | [...]
--- OUTSIDE RECORDS SUMMARY | ~2019-10-27 | XMS | Encounter Summary ---
Demographics + + + | Address | [address] | | | [place] [address] | + + + | Home Phone [...] Team Providers + +------+ + | Care Exercise Planner Name | Role | Phone | [...] | (Fax) | | | | | [address] | | | | | | [phone] | | | +--------+ + + + [...] | | | | | | [place] [id number] | | | | | | [phone] | | | | | | | | +--------+ + + + + | 11/20/ | Implant | Cardiology | Daljit Singletary, | Remote Device | | 2018 | Monitor | | 401 [facility] | Interrogation | | | | | [place], | (Primary Dx); | | | | | [place] [address] | Presence of | | | | | [phone] | permanent cardiac | | | | [...]
--- OUTSIDE RECORDS SUMMARY | ~2019-10-27 | XMS | Encounter Summary ---
Demographics + + + | Address | [address] | | | [place] [address] | + + + | Home Phone [...] Providers + +------+ + | Care Chief Creative Officer Name | Role | Phone | [...] 2018 | | GASTROENTEROLOGY | [address], [place] | about prep for | | | | [address] [place] | [address] [place], [place] | procedure) | | | | [address] [place], [place] | [address] | | | | | [address] | | | | | | [phone] | | | +--------+ + + + [...] | | | | | | [place] [address] | | | | | | [phone] | | | | | | | | +--------+ + + + + | 11/20/ | Implant | Cardiology | Daljit Singletary, | Remote Device | | 2019 | Monitor | | MD [address] | Interrogation | | | | | [place], | (Primary Dx); | | | | | [place] [address] | Presence of | | | | | [phone] | permanent cardiac | | | | [...]
--- OUTSIDE RECORDS SUMMARY | ~2019-10-27 | XMS | Encounter Summary ---
Demographics + + + | Address | [address] | | | [place] [address] | + + + | Home Phone [...] Providers + +------+ + | Care Pump Operator Name | Role | Phone [...] Eva ROUSE | | | | | [place], [place] | [address] | | | | | [address] | [place] [address] | | | | | [phone] | [phone] | | | | | | | [...] W | | | | | | [place], | | | | | | [place] [address] | | | | | | [phone] | | | | | | | | +--------+ + + + + | 11/20/ | Implant | Cardiology | Daljit Singletary, | Remote Device | | 2018 | Monitor | | [address] [place] | Interrogation | | | | | [place], | (Primary Dx); | | | | | [place] [address] | Presence of | | | | | [phone] | permanent cardiac | | | | [...]
--- OUTSIDE RECORDS SUMMARY | ~2019-10-27 | XMS | Encounter Summary ---
Demographics + + + | Address | [address] | | | [place] [address] | + + + | Home Phone [...] Providers + +------+ + | Care Boom Stick Worker Name | Role | Phone | [...] | 06/22/ | Telephone | [facility] | Vasiliy Michael Kelsey, | Eye Problem | | 2012 | | MEDIC[facility] [place] | DO [address] | | | | | [address] | [place] | | | | | [place] | [address] | | | | | [address] | | | | | | [phone] | | | +--------+ + + + [...] W | | | | | | [place], | | | | | | [place] [address] | | | | | | [phone] | | | | | | | | +--------+ + + + + | 11/20/ | Implant | Cardiology | Daljit Singletary, | Remote Device | | 2018 | Monitor | | 401 [facility] | Interrogation | | | | | [place], | (Primary Dx); | | | | | [place] [address] | Presence of | | | | | [phone] | permanent cardiac | | | | [...]
--- OUTSIDE RECORDS SUMMARY | ~2019-10-27 | XMS | Encounter Summary ---
Demographics + + + | Address | [address] | | | [place] [address] | + + + | Home Phone [...] Providers + +------+ + | Care Loan Services Professional Name | Role | Phone [...] | | | | CENTER [address] | [place] | (Primary Dx) | | 07/28/ | | [place] | [address] | | | 2017 | | [address] | | | | | | [phone] | | | +--------+ + + + [...] sent through Care Everywhere.Chest Pain, Non cardiac ([place])documented in this encounter Medications at Time of [...] | | | | | | [place] [address] | | | | | | [phone] | | | | | | | | +--------+ + + + + | 11/20/ | Implant | Cardiology | Daljit Singletary, | Remote Device | | 2018 | Monitor | | MD [address] | Interrogation | | | | | [place], | (Primary Dx); | | | | | [place] [address] | Presence of | | | | | [phone] | permanent cardiac | | | | [...] W?MRN: | | | | | | [id number] | | | [id number] | | | his | | | [...] | | | ent/60 | | | [id number] | | | -5586- | | | [...] | | | St. | | | [place] | | | y | | | [...] | | | ext. | | | [address] | | | or go | | [...] | | | M.D. | | | Bell Hole Digger | | | al | | | [...] + | [facility] | [address] | [place] | [phone] | | [facility] | | [address] | | | - LABORATORY | | [...] | | FILTRATION | mL/min/1.73m2 | [facility] | | | [place] | RATE,ESTIMATED | | MEDICAL | | | | mL/min/1.92j1Brow than | | CENTER - | | [...] | | | | | mg/dL | [facility] | | | | | [...] [address] | [place] | [phone] | | [facility] | | [address] | | | - LABORATORY | | [...] + | [facility] | [address] | [place] | [phone] | | [facility] | | [address] | | | - LABORATORY | | [...] | | | | ANGELA MARADIAGA MD ([id number]) | | | | | | on [...]
--- OUTSIDE RECORDS SUMMARY | ~2019-10-27 | XMS | Encounter Summary ---
Demographics + + + | Address | [address] | | | [place] [address] | + + + | Home Phone [...] Providers + +------+ + | Care Elevator Technician Name | Role | Phone | + +------+ + | Kirk French MD | PCP | | + +------+ + Encounter Details +--------+ + + + + | Date | Type | Department | Care Team | Description | +--------+ + + + + | 01/05/ | Anesthesia | [facility] | Jarett Barakat | | | 2019 | Event | MED CTR MP INTRA OP | P, MD [address] | | | | | [address] | [place], [place] | | | | | [place], [place] | [address] | | | | | [address] | [phone] | | | | | [phone] | | | +--------+ + + + [...] and consent obtained. Patient transported to [facility], | | | 4 | | [...] | 01/05/19950 by | | eral | jiyh-ghd-xmefvw catheter system; | Kasie Natarajan RN | [...] | | | | | | [place] [address] | | | | | | [phone] | | | | | | | | +--------+ + + + + | 11/20/ | Implant | Cardiology | Daljit Singletary, | Remote Device | | 2018 | Monitor | | [facility] | Interrogation | | | | | [place], | (Primary Dx); | | | | | [place] [address] | Presence of | | | | | [phone] | permanent cardiac | | | | [...] | | | | | Vomiting, [facility] 01/05/19 at | | AM PST [...]
--- OUTSIDE RECORDS SUMMARY | ~2019-10-27 | XMS | Encounter Summary ---
Demographics + + + | Address | [address] | | | [place] [address] | + + + | Home Phone [...] Providers + +------+ + | Care Sewer Tapper Name | Role | Phone | [...] | | | | CENTER [address] | [place], [place] | insufficiency | | | | [place], [place] | [address] | | | | | [address] | | | | | | [phone] | | | +--------+ + + + [...] + + + +---------+ + + | [place]-3 Fatty | CAPS, one capsule by | [...] | | | | | | | #[id number], exp 07/2016 | | | | | [...] | | | | | | [place] [address] | | | | | | [phone] | | | | | | | | +--------+ + + + + | 11/20/ | Implant | Cardiology | Daljit Singletary, | Remote Device | | 2018 | Monitor | | MD [address] | Interrogation | | | | | [place], | (Primary Dx); | | | | | [place] [address] | Presence of | | | | | [phone] | permanent cardiac | | | | [...]
--- OUTSIDE RECORDS SUMMARY | ~2019-10-27 | XMS | Encounter Summary ---
Demographics + + + | Address | [address] | | | [place] [address] | + + + | Home Phone [...] Team Providers + +------+ + | Care Dependency Counselor Name | Role | Phone | [...] + | 10/01/ | Office | [facility] | Mary Bradshaw | Injury of left foot, | | 2013 | Visit | CARE [address] | Guy Larkin MD | initial encounter | | | | [place] | [address] | (Primary Dx) | | | | [address] | [place] | | | | | [phone] | [address] | | | | | | | [...] half hours. 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 I provided patient with Dr. Bradley's card so he may contact us for results. Patient's best phone number: [phone] Renetta Lockwood RN ary Bradshaw MD - [...] | | | | | | [place] [address] | | | | | | [phone] | | | | | | | | +--------+ + + + + | 11/20/ | Implant | Cardiology | Daljit Singletary, | Remote Device | 2018 | Monitor | | [facility] | Interrogation | | | | | [place], | (Primary Dx); | | | | | [place] [address] | Presence of | | | | | [phone] | permanent cardiac | | | | [...] + | MISCELLANEOUS LAB | | | [phone] | + +---------+ + + | MISCELANIOUS LAB | | | [phone] | + +---------+ + + documented in this encounter Visit Diagnoses + + | Diagnosis | + + | Injury of left foot, initial encounter - Primary | + + documented in this encounter
--- OUTSIDE RECORDS SUMMARY | ~2019-10-27 | XMS | Encounter Summary ---
Demographics + + + | Address | [address] | | | [place] [address] | + + + | Home Phone [...] Providers + +------+ + | Care Sorter Upholstery Parts Name | Role | Phone | + +------+ + | Kirk French MD | PCP | | + +------+ + Encounter Details +--------+---------+ + + + | Date | Type | Department | Care Team | Description | +--------+---------+ + + + | 12/24/ | Surgery | [facility] | Emmanuel Daniel MD | EGD | | 2018 | | MED CTR MP INTRA OP | [address], [place] | | | | | [address] | [address] [place], [place] | | | | | [place], [place] | [address] | | | | | [address] | | | | | | [phone] | | | +--------+---------+ + + + [...] | | | | | | [place] [address] | | | | | | [phone] | | | | | | | | +--------+ + + + + | 11/20/ | Implant | Cardiology | Daljit Singletary, | Remote Device | | 2019 | Monitor | | [address] [facility] | Interrogation | | | | | [place], | (Primary Dx); | | | | | [place] [address] | Presence of | | | | | [phone] | permanent cardiac | | | | [...] + | Performed at: 01 - [address] [place] [address], | REFERENCE LAB | | [place], [place] [id number] Cement Production Plant Operator: William Andrew MD, Phone: | [facility] - [facility] | | [phone] | | + + + + + + + + | Performing | Address | City/State/Zipcode | Phone Number | | Organization | | | | + + + + + | REFERENCE LAB | [address] | [place] [address] | [phone] | | [facility] | [facility] | | | + + + [...] [address] | [place] | [phone] | | [facility] | | [address] | | | - LABORATORY | | [...] | | Aeromonas, Plesiomonas, | | [facility] | | | | E. [...] [address] | [place] | [phone] | | [facility] | | [address] | | | - LABORATORY | | [...] [address] | [place] | [phone] | | [facility] | | [address] | | | - LABORATORY | | [...] + + | Performed at: 01 - [facility] [address], | REFERENCE LAB | | [place], [place] [id number] Cement Production Plant Operator: William Andrew MD, Phone: | [facility] | | [phone] | | + + + + + + + + | Performing | Address | City/State/Zipcode | Phone Number | | Organization | | | | + + + + + | REFERENCE LAB | [address] | [place] [address] | [phone] | | [facility] | [facility] | | | + + + [...] + | [facility] | [address] | [place] | [phone] | | [facility] | | [address] | | | - LABORATORY | | [...] [address] | [place] | [phone] | | [facility] | | [address] | | | - LABORATORY | | [...] | | dium | | | [facility] | | | Antigen | [...] [address] | [place] | [phone] | | [facility] | | [address] | | | [...] [address] | [place] | [phone] | | [facility] | | [address] | | | - LABORATORY | | [...] [address] | [place] | [phone] | | [facility] | | [address] | | | - LABORATORY | | | | + + + + + EGD (12/24/2017 1:19 PM PST) + + | Specimen | + + | | + + + + -+ | Narrative | Performed At | + + -+ | | [facility] | | GastroenterologyPatient Name: Moe SanchezKane Date: 12/24/2017 | [facility] | | 1:19 PMMRN: [id number] #: [id number] of : | | | 1960Admit Type: AmbulatoryAge: 57Room: [facility] 01Gender: MaleNote | | | Status: FinalizedAttending MD: Emmanuel Daniel , [facility]: | | | Upper GI endoscopyIndications: Diarrhea, Weight | | | lossProviders: Emamnuel Daniel MD, Maria Isabel Morris RN, | | | Kim Hicks, Elastic Cutter, Jarett | | | Sapna Barakat MD [...] the anesthesiologist and | | | the wardrobe technician in the endoscopy suite. Mental Status [...] Out: 1:31:13 PM | | | [facility], [address] [place] [address] | | | [place] [address] | | | - Discharge patient to [...] Out: 1:31:13 PM | | | [facility], [address], [place] | | | [address] | | + + -+ + +---------+ [...] 12/24/2017 | [facility] | | 1:17 PMMRN: [id number] #: [id number] of : | | | 8Admit Type: AmbulatoryAge: 57Room: [facility] 01Gender: MaleNote | | | Status: FinalizedAttending MD: Emmanuel Daniel , [facility]cedure: | | | ColonoscopyIndications: Clinically significant diarrhea of | | | unexplained originProviders: Emmanuel Daniel MD, Maria Isabel | | | Arturo RN, Kim Hicks, Elastic Cutter, | | | Jarett Barakat MD [...] | | | the anesthesiologist and the wardrobe technician in the endoscopy suite. | | [...] Scope In: 1:32:55 PMScope Out: 1:48:57 PM [facility] | | | [facility], [address] [place] [address] | | | [phone] | | | - Await pathology results. [...] Out: 1:48:57 PM | | | [facility], [address] [place] [address] | | | [address] | | + + -+ + +---------+ [...] colonic mucosa with focal adenomatous change. CLR:[facility]:C2NR | | | GROSS DESCRIPTION: Received in [...] | cm, submitted, all in (D1). ka:CLR:[facility] ADDITIONAL NOTES: | | | Immunohistochemical studies were performed on this case with the | | | appropriate positive controls that react as expected. This test was | | | developed and its performance characteristics determined by [facility] | | | [facility]. It has not been cleared or approved by the U.S. Food | | | and Drug Administration. The FDA has determined that such clearance | | | or approval is not necessary. This test is used for clinical | | | purposes. It should not be regarded as investigational or for | | | research. [facility] is certified under the Clinical | | | Laboratory Improvement Amendments of 1988 (CLIA) as qualified to | | | perform high complexity clinical laboratory testing. This assay | | | has not been validated for specimens that have been decalcified. | | | PERFORMING LABORATORY: Tissue processing and slide preparation were | | | performed by [facility], [address], [facility] | | | [place] [address] (Residential Program Coordinator: Evan Frausto M.D. CLIA#: | | | [id number]). Professional interpretation was performed by [facility] | | | [facility], [address], [place] [address] | | | (Residential Program Coordinator: Evan Frausto M.D.; CLIA#: [id number]). | | | Diagnostician: Rafael Bales MD Pathologist Electronically | | | Signed 12/28/2017 | | + + + + +---------+ + + | Performing | Address | City/State/[facility] Centercode | Phone Number | [...]
--- OUTSIDE RECORDS SUMMARY | ~2019-10-27 | XMS | Encounter Summary ---
Demographics + + + | Address | [address] | | | [place] [address] | + + + | Home Phone [...] Team Providers + +------+ + | Care Rounding Machine Operator Name | Role | Phone [...] W | Dx) | | | | [place] [address] | [address] [place] | | | | | [place], [place] | [place] [address] | | | | | [address] | [phone] | | | | | [phone] | | | +--------+ + + + [...] + + + +---------+ + + | [place]-3 Fatty | CAPS, one capsule by | [...] | | | | | | [place] [address] | | | | | | [phone] | | | | | | | | +--------+ + + + + | 11/20/ | Implant | Cardiology | Daljit Singletary, | Remote Device | | 2019 | Monitor | | MD [address] [facility] | Interrogation | | | | | [place], | (Primary Dx); | | | | | [place] [address] | Presence of | | | | | [phone] | permanent cardiac | | | | [...] W?MRN: | | | | | | [id number] | | | [id number] | | | his | | | [...] | | | ent/60 | | | [id number] | | | -5586- | | | [...] | | | St. | | | [place] | | | y H. | | [...] | | | St. | | | [place] | | | y H. | | [...] | | | St. | | | [place] | | | y H. | | [...] | | | St. | | | [place] | | | y H. | | [...] | | | St. | | | [place] | | | y | | | [...] | | | ext. | | | [address] | | | or go | | [...] | [facility] | [address] | [place] | [phone] | | [facility] | | [address] | | | - LABORATORY | | [...] + | [facility] | [address] | [place] | [phone] | | [facility] | | [address] | | | - LABORATORY | | [...] mL/min/1.73m2 | [facility] | | | NEP[place] | RATE,ESTIMATED | | MEDICAL | | | | mL/min/1.77h6Jcvh than | | CENTER - | | [...] [address] | [place] | [phone] | | [facility] | | [address] | | | - LABORATORY | | [...] [address] | [place] | [phone] | | [facility] | | [address] | | | - LABORATORY | | | | + + + + + documented in this encounter Visit Diagnoses + + | Diagnosis | + + | Bronchitis - Primary Bronchitis, not specified as acute or chronic | + + documented in this encounter"
--- OUTSIDE RECORDS SUMMARY | ~2019-10-27 | XMS | Encounter Summary ---
Demographics + + + | Address | [address] | | | [place] [address] | + + + | Home Phone [...] Team Providers + +------+ + | Care Arc Welder Apprentice Name | Role | Phone | [...] | | | | CENTER [address] | [address] | | | | | [place] | [place] | | | | | [address] | [address] | | | | | [phone] | | | +--------+ + + + [...] + + + +---------+ + + | Harmon-3 Fatty | CAPS, one capsule by | [...] | | | | | | | flandreau coronary | | | | | | | artery of flandreau | | | | | | | [...] | | | | | | [place] [address] | | | | | | [phone] | | | | | | | | +--------+ + + + + | 11/20/ | Implant | Cardiology | Daljit Singletary, | Remote Device | | 2018 | Monitor | | [facility] | Interrogation | | | | | [place], | (Primary Dx); | | | | | [place] [address] | Presence of | | | | | [phone] | permanent cardiac | | | | [...] [address] | [place] | [phone] | | [facility] | | [address] | | | - LABORATORY | | [...] + | [address] | [address] | [place] | [phone] | | [facility] | | [address] | | | - LABORATORY | | [...] in | 12 - 53 U/L | [facility] | | | | use as of January 18 | | [facility] | | | | 2018. [...] + | [facility] | [address] | [place] | [phone] | | [facility] | | [address] | | | - LABORATORY | | [...] mL/min/1.73m2 | [facility] | | | INDONESIAN | RATE,ESTIMATED | | MEDICAL | | | | mL/min/1.86r0Jiqx than | | CENTER - | | [...] ST. | [address] | [place], [place] | [phone] | | [facility] | | [address] | | | - LABORATORY | | [...] + | [address] | [address] | [place] | [phone] | | [facility] | | [address] | | | - LABORATORY | | [...] [address] | [place] | [phone] | | [facility] | | [address] | | | - LABORATORY | | [...] | | | | ANGELA MARADIAGA MD ([id number]) | | | | | | on [...] | | | | | Patient Address: [address] [place] [address] | | | | | | | [place] [address], | | | | | | + + + +------+---+---+ +---+---+ | | | +---+---+ documented in this encounter
--- OUTSIDE RECORDS SUMMARY | ~2019-10-27 | XMS | Encounter Summary ---
Demographics + + + | Address | [address] [place] [address] | | | [place] [address] | + + + | Home Phone [...] [place] | | | | | [address] | | + + + + + Care Team Providers + +------+ + | Care Buck Presser Name | Role | Phone | [...] as of this encounter Progress Notes Interface, Top Hat Body Maker In - 07/19/2006 3:05 AM PDTCLINIC DATE: 06/13/2002 [facility] REFERRING PHYSICIAN: Eugene Vera D.O. [address] [place] [address] Mr. Sanchez is a new patient. He [...] proceed. Martell Allen M.D. ELIZABETH / KATTY [id number] / [id number] / [id number] / [id number] cc: Eugene Vera D.O. [address] [place] [id number] signed by Interface, Top Hat Body Maker In at 07/19/2006 3:0 5 AM PDTdocumented in this encounter Plan of Treatment Not on filedocumented as of this encounter Visit Diagnoses Not on filedocumented in this encounter
--- OUTSIDE RECORDS SUMMARY | ~2019-10-27 | XMS | Encounter Summary ---
Demographics + + + | Address | [address] | | | [place] [address] | + + + | Home Phone [...] Providers + +------+ + | Care Web Production Designer Name | Role | Phone | [...] | Visit | CARDIOLOGY [address] | CLOTH FINISHING RANGE OPERATOR CHIEF [address] | Dx) | | | | [place], | [place] | | | | | [place] [address] | [address] | | | | | [phone] | | | +--------+---------+ + + + [...] Sanchez Date: December 21, 2012 : 1960 Golf Coach: PARISA Velazquez Device Heddler: Medtronic Sense (mV) Impedance (?) Capture (V) Capture (ms) A Lead 4-5.6 423 1.5 0.09 RV Lead >31.36 539 2.0 0.09 LV Lead Battery Impedance (?): 301 Battery Voltage (V): 2.8 MN Interval (ms): 140 AR Interval (ms): 210 VA Conduction: Mode Switch Events: N/A % of time: -MIDDLE SCHOOL LIBRARIAN: 0.6 AP-MIDDLE SCHOOL LIBRARIAN: 1.3 -VS: 23.9 AP-VS: 74.2 MIDDLE SCHOOL LIBRARIAN: Magnetic Rate: 85 LINDA: 65 LEAH: Current [...] | | | | | | [place] [address] | | | | | | [phone] | | | | | | | | +--------+ + + + + | 11/20/ | Implant | Cardiology | Gemini Shaistakenneth, | Remote Device | | 2019 | Monitor | | MD [facility] | Interrogation | | | | | [place], | (Primary Dx); | | | | | [place] [address] | Presence of | | | | | [phone] | permanent cardiac | | | | [...]
--- OUTSIDE RECORDS SUMMARY | ~2019-10-27 | XMS | Encounter Summary ---
Demographics + + + | Address | [address] | | | [place] [address] | + + + | Home Phone [...] Providers + +------+ + | Care Group Worker Name | Role | Phone | + +------+ + PCP | Unavailable | + +------+ + Encounter Details +--------+ + + + + | Date | Type | Department | Care Team | Description | +--------+ + + + + | 11/12/ | Hospital | [facility] | | | | 1994 | Encounter | MED CTR GENERIC OP | | | | | | CONV DEPT [address] | | | | | | [place], | | | | | | [place] [address] | | | | | | [phone] | | | +--------+ + + + [...] | | | | | | [place] [address] | | | | | | [phone] | | | | | | | | +--------+ + + + + | 11/20/ | Implant | Cardiology | Daljit Singletary, | Remote Device | | 2018 | Monitor | | [facility] | Interrogation | | | | | [place], | (Primary Dx); | | | | | [place] [address] | Presence of | | | | | [phone] | permanent cardiac | | | | [...]
--- OUTSIDE RECORDS SUMMARY | ~2019-10-27 | XMS | Encounter Summary ---
Demographics + + + | Address | [address] | | | [place] [address] | + + + | Home Phone [...] Providers + +------+ + | Care Senior Ux Designer Name | Role | Phone | [...] Referral Question | | 2019 | | [facility] | MD Brea [address] | | | | | PRIMARY CARE [address] | [address] | | | | | [address] | [place] [address] | | | | | [place], [place] | [phone] | | | | | [address] | | | | | | [phone] | | | +--------+ + + + [...] | | | | | | [place] [address] | | | | | | [phone] | | | | | | | | +--------+ + + + + | 11/20/ | Implant | Cardiology | Daljit Singletary, | Remote Device | | 2018 | Monitor | | MD [address] | Interrogation | | | | | [place], | (Primary Dx); | | | | | [place] [address] | Presence of | | | | | [phone] | permanent cardiac | | | | [...]
--- OUTSIDE RECORDS SUMMARY | ~2019-10-27 | XMS | Encounter Summary ---
Demographics + + + | Address | [address] | | | [place] [address] | + + + | Home Phone [...] Team Providers + +------+ + | Care Docket Clerk Name | Role | Phone | [...] + + | 04/07/ | Office | [facility] | Matthew Uriarte | Left ureteral | | 2019 | Visit | [address] | MD Tawanna [address] | calculus (Primary | | | | [place], [place] | [place] | Dx); Kidney stones | | | | [address] | [address] | | | | | [phone] | | | +--------+---------+ + + + [...] April 13, 2019 at 7:45 AM at [facility]. Please report to the [facility] no later than 6:15 AM. REMEMBER: NOTHING TO EAT OR DRINK AFTER MIDNIGHT April 12, 2019. NO FISH OIL, ASPIRIN OR ASPIRIN PRODUCTS ONE WEEK PRIOR TO SURGERY. Tylenol and Advil are OK. You will need to get the following testing done prior to surgery: CBC, BMP YOU WILL NEED TO BRING A AGRICULTURAL REAL ESTATE AGENT WITH YOU THE DAY OF SURGERY. Call us at [phone] with any questions. [] Pain management booklet provided to patient. documented in this encounter Progress Notes Matthew Uriarte MD - 04/07/2019 9:45 AM PDTFormatting of this note might be differ ent from the original. Chief Complaint Patient presents with New Patient kidney stones HPI Moe Sanhcez is a 59 y.o. male patient of [...] Medtronic Peptic ulcer disease Premature ventricular contraction [facility] care 06/26/2013 LAST PSA:12/16/2010 RESULT:0.14 LAST COLONOSCOPY:02/05/2009 [...] CV LHC; Surgeon: Daljit Singletary MD; Location: [facility] CV LAB CARDIAC CATHERIZATION N/A 01/25/2019 Procedure: CV Cor Angio; Surgeon: Daljit Singletary MD; Location: [facility] CV LAB COLONOSCOPY N/A 12/24/2017 Procedure: COLONOSCOPY; Surgeon: Emmanuel Daniel MD; Location: [facility] MEDICAL PROCEDURE UNIT COLONOSCOPY N/A 01/05/2019 Procedure: COLONOSCOPY; Surgeon: Emmanuel Daniel MD; Location: [facility] MEDICAL PROCEDURE UNIT EGD 12/24/2017 HARDWARE REMOVAL KNEE ARTHROSCOPY Bilateral KNEE SURGERY 2003 meniscus-right LAMINECTOMY 1991 L3-4 LUMBAR DISCECTOMY 1991 L3-4 LUMBAR FUSION 01/2011 6 spine fusions NECK SURGERY NECK SURGERY 08/10/2012 Fusion. [place] PACEMAKER PLACEMENT 06/14/2009 Medtronic ROTATOR CUFF REPAIR Bilateral 03/22/2013 SINUS SURGERY 1998 SPINAL FUSION STOMACH SURGERY UPPER GASTROINTESTINAL ENDOSCOPY N/A 12/24/2017 Procedure: EGD; Surgeon: Emmanuel Daniel MD; Location: [facility] MEDICAL PROCEDURE UNIT UPPER GASTROINTESTINAL ENDOSCOPY N/A 01/05/2019 Procedure: EGD; Surgeon: Emmanuel Daniel MD; Location: [facility] MEDICAL PROCEDURE UNIT VASECTOMY Family History: Family [...] EVERY DAY, Disp: 90 tablet, Rfl: 3 [facility] [...] 911, Disp: 100 ta blet, Rfl: 3 [place]-3 Fatty Acids (SALMON OIL-1000 PO), CAPS, one capsule by mouth daily twice daily , Disp: , Rfl: ondansetron (ZOFRAN ODT) 4 mg disintegrating tablet, Take 4 mg by mouth., Disp: , Rfl: ONE TOUCH DELICA LANCETS [facility], Check glucose as needed for hypoglycemia, Disp: [...] have not thoroughly proofread this note, and customs appraiser errors are very likely to occur. CC: [...] W | | | | | | [place], | | | | | | [place] [address] | | | | | | [phone] | | | | | | | | +--------+ + + + + | 11/20/ | Implant | Cardiology | Daljit Singletary, | Remote Device | | 2018 | Monitor | | MD [address] [place] | Interrogation | | | | | [place], | (Primary Dx); | | | | | [place] [address] | Presence of | | | | | [phone] | permanent cardiac | | | | [...]
--- OUTSIDE RECORDS SUMMARY | ~2019-10-27 | XMS | Encounter Summary ---
Demographics + + + | Address | [address] | | | [place] [address] | + + + | Home Phone [...] Providers + +------+ + | Care Route Aide Name | Role | Phone | [...] [address] | | | | | [place], [place] | [place], [place] | | | | | [address] | [address] | | | | | [phone] | | | +--------+ + + + [...] | | | | | | [place] [address] | | | | | | [phone] | | | | | | | | +--------+ + + + + | 11/20/ | Implant | Cardiology | Daljit Singletary, | Remote Device | | 2018 | Monitor | | MD [address] | Interrogation | | | | | [place], | (Primary Dx); | | | | | [place] [address] | Presence of | | | | | [phone] | permanent cardiac | | | | [...]
--- OUTSIDE RECORDS SUMMARY | ~2019-10-27 | XMS | Encounter Summary ---
Demographics + + + | Address | [address] | | | [place] [address] | + + + | Home Phone [...] Providers + +------+ + | Care Logistics Intern Name | Role | Phone | [...] 2014 | | CARDIOLOGY [address] | SPARES SCHEDULER [address] | | | | | [place], | [place], [place] | | | | | [place] [address] | [address] | | | | | [phone] | | | +--------+ + + + [...] | 11/09/ | Office | Cardiology | [place], | | | 2019 | Visit | | PARISA Vernon [address] | | | | | | [place], | | | | | | [place] [address] | | | | | | [phone] | | | | | | | | +--------+ + + + + | 11/20/ | Implant | Cardiology | Daljit Singletary, | Remote Device | | 2018 | Monitor | | MD [address] | Interrogation | | | | | [place], | (Primary Dx); | | | | | [place] [address] | Presence of | | | | | [phone] | permanent cardiac | | | | [...]
--- OUTSIDE RECORDS SUMMARY | ~2019-10-27 | XMS | Encounter Summary ---
Demographics + + + | Address | [address] | | | [place] [address] | + + + | Home Phone [...] Providers + +------+ + | Care Flight Control Specialist Name | Role | Phone [...] Amanda, | | | 2013 | | [facility] | DO [address] | | | | | [address] | [place] | | | | | [place] | [address] | | | | | [address] | | | | | | [phone] | | | +--------+ + + + [...] | | | | | | [place] [address] | | | | | | [phone] | | | | | | | | +--------+ + + + + | 11/20/ | Implant | Cardiology | Daljit Singletary, | Remote Device | | 2019 | Monitor | | MD [address] [facility] | Interrogation | | | | | [place], | (Primary Dx); | | | | | [place] [address] | Presence of | | | | | [phone] | permanent cardiac | | | | [...] + | [facility] | [address] | [place] | [phone] | | [facility] | | [address] | | | - LABORATORY | | | | + + + + + | [facility] | [address] | [place] | | | [facility] | | [address] | | | - LABORATORY | | [...]
--- OUTSIDE RECORDS SUMMARY | ~2019-10-27 | XMS | Encounter Summary ---
Demographics + + + | Address | [address] | | | [place] [address] | + + + | Home Phone [...] + +------+ + | Care Student Finance Advisor Name | Role | Phone | + +------+ + | Michael Amanda DO | PCP | | + +------+ + Encounter Details +--------+ + + + + | Date | Type | Department | Care Team | Description | +--------+ + + + + | 10/01/ | Hospital | [facility] | Mary Bradshaw | | | 2013 | Encounter | MED CTR [address]EN [address]IGLE | Guy Larkin MD | | | | | [address] [place] | [address] | | | | | [place], [place] | [place], [place] | | | | | [address] | [address] | | | | | [phone] | | | +--------+ + + + [...] + + + +---------+ + + | [place]-3 Fatty | CAPS, one capsule by | [...] | | | | | | [place] [address] | | | | | | [phone] | | | | | | | | +--------+ + + + + | 11/20/ | Implant | Cardiology | Daljit Singletary, | Remote Device | | 2019 | Monitor | | [place] [facility] | Interrogation | | | | | [place], | (Primary Dx); | | | | | [place] [address] | Presence of | | | | | [phone] | permanent cardiac | | | | [...] + | MISCELLANEOUS LAB | | | [phone] | + +---------+ + + | MISCELANIOUS LAB | | | [phone] | + +---------+ + + documented in this encounter Visit Diagnoses Not on filedocumented in this encounter"
--- OUTSIDE RECORDS SUMMARY | ~2019-10-27 | XMS | Encounter Summary ---
Demographics + + + | Address | [address] | | | [place] [address] | + + + | Home Phone [...] Providers + +------+ + | Care Stock Control Supervisor Name | Role | Phone [...] | | | | CENTER [address] | [place], [place] | | | | | [place] | [address] | | | | | [address] | | | | | | [phone] | | | +--------+ + + + [...] new doc you can try over at [facility] documented in this encounter Medications at Time [...] W | | | | | | [place], | | | | | | [place] [address] | | | | | | [phone] | | | | | | | | +--------+ + + + + | 11/20/ | Implant | Cardiology | Daljit Singletary, | Remote Device | | 2019 | Monitor | | MD [address] [place] | Interrogation | | | | | [place], | (Primary Dx); | | | | | [place] [address] | Presence of | | | | | [phone] | permanent cardiac | | | | [...]
--- OUTSIDE RECORDS SUMMARY | ~2019-10-27 | XMS | Encounter Summary ---
Demographics + + + | Address | [address] [place] [address] | | | [place] [address] | + + + | Home Phone [...] [place] | | | | | [address] | | + + + + + Care Team Providers + +------+ + | Care Poultry Offal Icer Name | Role | Phone | [...] | | | | | TRANSTHORACI | [place], [place] | for Health | | | | | C | [address] | and Healing, | | | | | ECHOCARDIOGR | Phone: | Building [address] | | | | | AM, ADULT | [phone] | [place], [place] | | | | | | Fax: | [address] | | | | | | [phone] | Phone: | | | | | | | [phone] | +--------+--------+ + + + + Encounter Details +--------+ + + + + | Date | Type | Department | Care Team | Description | +--------+ + + + + | 02/03/ | Hospital | Cardiac | | | | 2010 | Encounter | Non-Invasive Testing | | | | | | at [facility] [address] | | | | | | [address]ne Crane Mailcode: | | | | | | [facility] | | | | | | Health and Healing, | | | | | | [address] | | | | | | [place], [place] | | | | | | [address] | | | | | | [phone] | | | +--------+ + + + [...] as of this encounter Progress Notes Rolan eHrnandez 02/03/2011 4:03 PM PDTTransthoracic echocardiogram completed. Final [...]
--- OUTSIDE RECORDS SUMMARY | ~2019-10-27 | XMS | Encounter Summary ---
Demographics + + + | Address | [address] | | | [place] [address] | + + + | Home Phone [...] Providers + +------+ + | Care Police Cadet Name | Role | Phone | + [...] [place], | | | | | | [place] [address] | | | | | | [phone] | | | +--------+ + + + [...] | | | | | | [place] [address] | | | | | | [phone] | | | | | | | | +--------+ + + + + | 11/20/ | Implant | Cardiology | Daljit Singletary, | Remote Device | | 2019 | Monitor | | [facility] | Interrogation | | | | | [place], | (Primary Dx); | | | | | [place] [address] | Presence of | | | | | [phone] | permanent cardiac | | | | [...]
--- OUTSIDE RECORDS SUMMARY | ~2019-10-27 | XMS | Encounter Summary ---
Demographics + + + | Address | [address] | | | [place] [address] | + + + | Home Phone [...] Providers + +------+ + | Care Economic Consultant Name | Role | Phone | + +------+ + | Kirk French MD | PCP | | + +------+ + Encounter Details +--------+ + + + + | Date | Type | Department | Care Team | Description | +--------+ + + + + | 07/05/ | Hospital | [facility] | Conversion | Acute neck pain | | 2017 | Encounter | [facility] | Transaction, | | | | | [address] | Provider Unknown | | | | | [address] [place], [place] | [phone] | | | | | [address] | | | | | | [phone] | Apolonia Ruano | | | | | | MD Shelly [address] | | | | | | [address] | | | | | | [place], [place] | | | | | | [address] | | | | | | [phone] | | +--------+ + + + + [...] + + +---------+ + + | [place]-3 Fatty | CAPS, one capsule by | [...] | | | | | | [place] [address] | | | | | | [phone] | | | | | | | | +--------+ + + + + | 11/20/ | Implant | Cardiology | Daljit Singletary, | Remote Device | | 2019 | Monitor | | MD [facility] | Interrogation | | | | | [place], | (Primary Dx); | | | | | [place] [address] | Presence of | | | | | [phone] | permanent cardiac | | | | [...]
--- OUTSIDE RECORDS SUMMARY | ~2019-10-27 | XMS | Encounter Summary ---
Demographics + + + | Address | [address] [place] [address] | | | [place] [address] | + + + | Home Phone [...] [place] | | | | | [address] | | + + + + + Care Team Providers + +------+ + | Care Neck Skewer Name | Role | Phone | + [...] | | Bradycardia | | | | [place], [place] | | | | | | [address] | | | | | | [phone] | | | +--------+------+ + + + [...] | | [facility] [address] | REGIONAL | | [place] [address] | LABORATORY | + + + + + + + + | Performing | Address | City/State/Zipcode | Phone Number | | Organization | | | | + + + + + | [facility] | [address] | [place] [address] | | | LABORATORY | | | [...] ([address] [facility]) | | | [facility] [address] | | | [place] [address] | | + + + + + + + + | Performing | Address | City/State/Zipcode | Phone Number | | Organization | | | | + + + + + | [facility] | [address] | [place] [address] | | | LABORATORY | | | [...] | | | DEPARTMENT | | | [place] | | | OF | | | [...] DEPARTMENT OF | [address] | [place] [address] | | | PATHOLOGY | [address] | | | + + + + + documented in this encounter Visit Diagnoses + + | Diagnosis | + + | Chest pain Chest pain, unspecified | + + | Bradycardia Other specified cardiac dysrhythmias | + + documented in this encounter"
--- OUTSIDE RECORDS SUMMARY | ~2019-10-27 | XMS | Encounter Summary ---
Demographics + + + | Address | [address] | | | [place] [address] | + + + | Home Phone [...] Team Providers + +------+ + | Care Gum Puller Name | Role | Phone | [...] visit | CARDIOLOGY [address] | [address] | reprogramming/check | | | | [place], | [place], | DO NOT DELETE | | | | [place] [address] | [place] [address] | (Primary Dx); | | | | [phone] | [phone] | Sinoatrial node | | | | [...] W | | | | | | [place], | | | | | | [place] [address] | | | | | | [phone] | | | | | | | | +--------+ + + + + | 11/20/ | Implant | Cardiology | Daljit Singletary, | Remote Device | | 2018 | Monitor | | MD [address] | Interrogation | | | | | [place], | (Primary Dx); | | | | | [place] [address] | Presence of | | | | | [phone] | permanent cardiac | | | | [...]
--- OUTSIDE RECORDS SUMMARY | ~2019-10-27 | XMS | Encounter Summary ---
Demographics + + + | Address | [address] | | | [place] [address] | + + + | Home Phone [...] Providers + +------+ + | Care Load Dispatcher Name | Role | Phone | [...] | [address] [place] | [place] [address] | | | | | [address] | [phone] | | | | | [phone] | | | +--------+ + + + [...] | | | | | | [place] [address] | | | | | | [phone] | | | | | | | | +--------+ + + + + | 11/20/ | Implant | Cardiology | Daljit Singletary, | Remote Device | | 2018 | Monitor | | MD [address] [place] | Interrogation | | | | | [place], | (Primary Dx); | | | | | [place] [address] | Presence of | | | | | [phone] | permanent cardiac | | | | [...]
--- OUTSIDE RECORDS SUMMARY | ~2019-10-27 | XMS | Encounter Summary ---
Demographics + + + | Address | [address] | | | [place] [address] | + + + | Home Phone [...] Providers + +------+ + | Care Tool Profiling Machine Set Up Operator Name | Role | Phone | + +------+ + PCP | Unavailable | + +------+ + Encounter Details +--------+ + + + + | Date | Type | Department | Care Team | Description | +--------+ + + + + | 07/20/ | [facility] | [facility] | Hunter Antunez, | | | 2009 - | Encounter | MED CTR MED ONC | [address] | | | | | [address] [place] | [place] | | | 07/24/ | | [place] [address] | [address] | | | 2009 | | [phone] | | | +--------+ + + + [...] | | | | | | [place] [address] | | | | | | [phone] | | | | | | | | +--------+ + + + + | 11/20/ | Implant | Cardiology | Daljit Singletary, | Remote Device | | 2019 | Monitor | | MD [address] | Interrogation | | | | | [address] [place], | (Primary Dx); | | | | | [place] [address] | Presence of | | | | | [phone] | permanent cardiac | | | | [...]
--- OUTSIDE RECORDS SUMMARY | ~2019-10-27 | XMS | Encounter Summary ---
Demographics + + + | Address | [address] | | | [place] [address] | + + + | Home Phone [...] + +------+ + | Care Quality Control Assessor Name | Role | Phone | [...] Provider Unknown | | | | | [place], [place] | [phone] | | | | | [address] | | | | | | [phone] | | | +--------+ + + + [...] + + + +---------+ + + | Lutz-3 Fatty | CAPS, one capsule by | [...] | | | | | | [place] [address] | | | | | | [phone] | | | | | | | | +--------+ + + + + | 11/20/ | Implant | Cardiology | Daljit Singletary, | Remote Device | | 2018 | Monitor | | MD Chiquis Oro | Interrogation | | | | | [place], | (Primary Dx); | | | | | [place] [address] | Presence of | | | | | [phone] | permanent cardiac | | | | [...]
--- OUTSIDE RECORDS SUMMARY | ~2019-10-27 | XMS | Encounter Summary ---
Demographics + + + | Address | [address] | | | [place] [address] | + + + | Home Phone [...] + + | 03/15/ | Hospital | [facility] | Conversion | | | 2017 | Encounter | [facility] | Transaction, | | | | | [address] | Provider Unknown | | | | | [address] [place] | [phone] | | | | | [address] | | | | | | [phone] | Kirk French | | | | | | MD Brea [address] | | | | | | [address] [place], | | | | | | [place] [address] | | | | | | [phone] | | | | | | | [...] + + + +---------+ + + | [place]-3 Fatty | CAPS, one capsule by [...] | | | | | | [place] [address] | | | | | | [phone] | | | | | | | | +--------+ + + + + | 11/20/ | Implant | Cardiology | Daljit Singletary, | Remote Device | | 2019 | Monitor | | [facility] | Interrogation | | | | | [address] [place], | (Primary Dx); | | | | | [place] [address] | Presence of | | | | | [phone] | permanent cardiac | | | | [...]
--- OUTSIDE RECORDS SUMMARY | ~2019-10-27 | XMS | Encounter Summary ---
Demographics + + + | Address | [address] | | | [place] [address] | + + + | Home Phone [...] 2019 | | GASTROENTEROLOGY | [address], [place] | | | | | [address] | [address] [place], [place] | | | | | [address] [place], [place] | [address] | | | | | [address] | | | | | | [phone] | | | +--------+ + + + [...] | | | | | | [place] [address] | | | | | | [phone] | | | | | | | | +--------+ + + + + | 11/20/ | Implant | Cardiology | Daljit Singletary, | Remote Device | | 2018 | Monitor | | MD [address] | Interrogation | | | | | [address] [place], | (Primary Dx); | | | | | [place] [address] | Presence of | | | | | [phone] | permanent cardiac | | | | [...]
--- OUTSIDE RECORDS SUMMARY | ~2019-10-27 | XMS | Encounter Summary ---
Demographics + + + | Address | [address] | | | [place] [address] | + + + | Home Phone [...] Providers + +------+ + | Care Screen Stretcher Name | Role | Phone | + +------+ + | Kirk French MD | PCP | | + +------+ + Encounter Details +--------+---------+ + + + | Date | Type | Department | Care Team | Description | +--------+---------+ + + + | 01/05/ | Surgery | [facility] | Emmanuel Daniel MD | EGD | | 2019 | | MED CTR MP INTRA OP | [address], [place] | | | | | [address] | [address] [place], [place] | | | | | [place], [place] | [address] | | | | | [address] | | | | | | [phone] | | | +--------+---------+ + + + [...] for a few hours. Date Last Reviewed: 09/22/201619998038-6831 [employer]. [address] [place] [address]. All righ ts reserved. This information is [...] vomiting, or vomiting blood Date Last Reviewed: 05/22/201619994914-9123 [employer]. [address] [place] [address]. All righ ts reserved. This information is [...] You can't be awakened Date Last Reviewed: 09/08/201619998280-5920 [employer]. [address] [place] [address], [place] [address]. All righ ts reserved. This information is [...] + + + +---------+ + + | [place]-3 Fatty | CAPS, one capsule by | [...] | | | | | | [place], | | | | | | [place] [address] | | | | | | [phone] | | | | | | | | +--------+ + + + + | 11/20/ | Implant | Cardiology | Daljit Singletary, | Remote Device | | 2018 | Monitor | | [address] [facility] | Interrogation | | | | | [place], | (Primary Dx); | | | | | [place] [address] | Presence of | | | | | [phone] | permanent cardiac | | | | [...] [address], | REFERENCE LAB | | [place], [place] [address] Bee Producer: Miguel Galarza MD, Phone: | [facility] | | [phone] | | + + + + + + + + | Performing | Address | City/State/Zipcode | Phone Number | | Organization | | | | + + + + + | REFERENCE LAB | [address] | [place] [address] | [phone] | | [facility] | Drive [...] + + | Performed at: 01 - [facility] [address] [place] [address], | REFERENCE LAB | | [place], [place] [address] Bee Producer: Miguel Galarza MD, Phone: | [facility] | | [phone] | | + + + + + + + + | Performing | Address | City/State/Zipcode | Phone Number | | Organization | | | | + + + + + | REFERENCE LAB | [address] | [place] [address] | [phone] | | [facility] | Drive [...] [address] | [place] | [phone] | | [facility] | | [address] | | | - LABORATORY | | [...] [address] | [place] | [phone] | | [facility] | | [address] | | | - LABORATORY | | [...] [address] | [place] | [phone] | | [facility] | | [address] | | | - LABORATORY | | [...] [address] | [place] | [phone] | | [facility] | | [address] | | | - LABORATORY | | [...] + | [facility] | [address] | [place] | [phone] | | [facility] | | [address] | | | - LABORATORY | | [...] [address] | [place] | [phone] | | [facility] | | [address] | | | - LABORATORY | | | | + + + + + EGD (01/05/2019 8:36 AM PST) + + | Specimen | + + | | + + + + -+ | Narrative | Performed At | + + -+ | | [facility] | | GastroenterologyPatient Name: Moe Venegas Date: | PROVATION | | 01/05/2019 8:36 AMMRN: [id number] #: [id number] of : | | | 9Admit Type: AmbulatoryAge: 58Room: [facility] 01Gender: MaleNote | | | Status: FinalizedAttending MD: Emmanuel Daniel , [facility] | | | Upper GI endoscopyIndications: Diarrhea, Weight | | | lossProviders: Emmanuel Daniel MD, Heidi Gonzalezchfield, | | | RN, Kim Hicks, Elevated Work Platform Operator, | | | Jarett Barakat MD [...] physician, the nurse, the anesthesiologist and the prepress technician | | | in the endoscopy [...] | | Imaging was performed using the [employer] | | | Endoscopy (FICE) [...] Scope In: 8:43:57 AMScope Out: 8:49:[address] | | | [facility], [address] [place] [address] | | | [phone] | | |Recommendation: | | | - [...] Out: 8:49:50 AM | | | [facility], [address] [facility], [place], [place] | | | [address] | | + + -+ + +---------+ [...] | PROVATION | | 01/05/2019 8:36 AMMRN: [id number] #: [id number] of : | | | 9Admit Type: AmbulatoryAge: 58Room: [facility] 01Gender: MaleNote | | | Status: FinalizedAttending MD: Emmanuel Daniel , [facility]cedure: | | | ColonoscopyIndications: Clinically significant diarrhea of | | | unexplained origin, Weight lossProviders: | | | Emmanuel Daniel MD, Heidi An RN, Kim | | | Fiorella Hicks, Elevated Work Platform Operator, Jarett Alejo | | | MD [...] | | | the anesthesiologist and the prepress technician in the endoscopy suite. 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 BES:[facility]:C3NR GROSS DESCRIPTION: A. The | | | specimen, labeled "[place], duodenal biopsy" is received in formalin | | | and consists of seven 0.1-0.5 cm lin fragments. Entirely submitted in | | | (A1). B. The specimen, labeled "[place], right colon" is received | | | in formalin and consists of six 0.2-0.3 cm lin fragments. Entirely | | | submitted in (B1). C. The specimen, labeled "[place], left colon" | | | is received in formalin and consists of six 0.2-0.3 cm lin-pink | | | fragments. Entirely submitted in (C1). am:AMB:rds PERFORMING | | | LABORATORY: The technical component was performed by [facility] | | | [facility], [address] [place] [address] (Hair Rooting Machine Operator: | | | Kailey Stafford MD; CLIA# [id number]). Professional interpretation was | | | performed by [facility], [facility], [address] | | | [place] [address] (Hair Rooting Machine Operator: Ishaan | | | Anthony Dao; CLIA#: [id number]). Diagnostician: Ishaan Fitzpatrick | | | Sylwia [...] | mL/hr | | | CONTINUOUS, Starting [facility] 01/05/19 | | AM PST | | | | | at 0800, Pre-op | | | | | | + +---------+ +---+-------+---+ + +---+ | | | + +---+ | ondansetron (ZOFRAN) injection | | | 4 mg 4 mg, Oral, EVERY 4 HOURS | | | PRN, Nausea, Vomiting, Starting | | | [facility] 01/05/19 at 0924, | | | Recovery/Phase I | | + +---+ | | | + +---+ | ondansetron (ZOFRAN) injection | | | 4 mg 4 mg, Intravenous, ONCE | | | PRN, Nausea, Starting [facility] 01/05/19 | | | at 0924, For 1 dose, | | | Recovery/Phase I | | + +---+ | | | + +---+ documented in this encounter
--- OUTSIDE RECORDS SUMMARY | ~2019-10-27 | XMS | Encounter Summary ---
Demographics + + + | Address | [address] | | | [place] [address] | + + + | Home Phone [...] Providers + +------+ + | Care Application Counselor Name | Role | Phone | [...] 2016 | | CARDIOLOGY [address] | LOOM FIXER APPRENTICE [address] | | | | | [place], | [place], [place] | | | | | [place] [address] | [address] | | | | | [phone] | | | +--------+--------+ + + + [...] W | | | | | | [place], | | | | | | [place] [address] | | | | | | [phone] | | | | | | | | +--------+ + + + + | 11/20/ | Implant | Cardiology | Daljit Singletary, | Remote Device | | 2018 | Monitor | | [address] | Interrogation | | | | | [place], | (Primary Dx); | | | | | [place] [address] | Presence of | | | | | [phone] | permanent cardiac | | | | [...]
--- OUTSIDE RECORDS SUMMARY | ~2019-10-27 | XMS | Encounter Summary ---
Demographics + + + | Address | [address] | | | [place] [address] | + + + | Home Phone [...] + +------+ + | Care Water Softener Servicer Name | Role | Phone | [...] + | 06/20/ | Telephone | [facility] | Daljit Singletary, | Chest Pain | | 2018 | | CARDIOLOGY [address] | MD [address] [place] | | | | | [place], | [place], | | | | | [place] [address] | [place] [address] | | | | | [phone] | [phone] | | | | | | | [...] [place], | | | | | | [place] [address] | | | | | | [phone] | | | | | | | | +--------+ + + + + | 11/20/ | Implant | Cardiology | Daljit Singletary, | Remote Device | 2018 | Monitor | | [facility] | Interrogation | | | | | [place], | (Primary Dx); | | | | | [place] [address] | Presence of | | | | | [phone] | permanent cardiac | | | | [...]
--- OUTSIDE RECORDS SUMMARY | ~2019-10-27 | XMS | Encounter Summary ---
Demographics + + + | Address | [address] | | | [place] [address] | + + + | Home Phone [...] Providers + +------+ + | Care Card Assembler Name | Role | Phone | [...] + + | 07/01/ | Hospital | [facility] | Scotty Galdamez, | DDD (degenerative | | 2018 | Encounter | MED CTR XRAY [address] | ETCHER APPRENTICE [address] | disc disease), | | | | [place] | [address] | lumbar; Chronic | | | | [place] [address] | [place] [address] | left-sided low back | | | | [phone] | [phone] | pain with left-sided | | | [...] | | | | | | [place] [address] | | | | | | [phone] | | | | | | | | +--------+ + + + + | 11/20/ | Implant | Cardiology | Daljit Singletary, | Remote Device | | 2019 | Monitor | | MD [address] | Interrogation | | | | | [place], | (Primary Dx); | | | | | [place] [address] | Presence of | | | | | [phone] | permanent cardiac | | | | [...]
--- OUTSIDE RECORDS SUMMARY | ~2019-10-27 | XMS | Encounter Summary ---
Demographics + + + | Address | [address] | | | [place] [address] | + + + | Home Phone [...] Providers + +------+ + | Care Chisel Worker Name | Role | Phone | [...] + + | 01/25/ | Office | [facility] | Daljit Singletary, | Other chest pain | | 2012 | Visit | CARDIOLOGY [address] | [address] | (Primary Dx); PVC's | | | | [place], | [place], | (premature | | | | [place] [address] | [place] [address] | ventricular | | | | [phone] | [phone] | contractions) | | | | | [...] note, lorraine painting has appointment to see compensation specialist for PVCs ablations consultation on January [...] tablet Take 1,000 mg by mouth Daily. [place]is-3 Fatty Acids (SALMON OIL-1000 PO) CAPS, one [...] tablet Take 1,000 mg by mouth Daily. [place]-3 Fatty Acids (SALMON OIL-1000 PO) CAPS, one [...] | | | | | | [place] [address] | | | | | | [phone] | | | | | | | | +--------+ + + + + | 11/20/ | Implant | Cardiology | Daljit Singletary, | Remote Device | | 2018 | Monitor | | [facility] | Interrogation | | | | | [place], | (Primary Dx); | | | | | [place] [address] | Presence of | | | | | [phone] | permanent cardiac | | | | [...]
--- OUTSIDE RECORDS SUMMARY | ~2019-10-27 | XMS | Encounter Summary ---
Demographics + + + | Address | [address] | | | [place] [address] | + + + | Home Phone [...] Team Providers + +------+ + | Care Hostess Cashier Name | Role | Phone | [...] + | 06/02/ | Telephone | [facility] | Daljit Singletary, | Other (symptoms) | | 2019 | | CARDIOLOGY [address] | MD [address] [place] | | | | | [place], | [place], | | | | | [place] [address] | [place] [address] | | | | | [phone] | [phone] | | | | | | | [...] | | | | | | [place], | | | | | | [place] [address] | | | | | | [phone] | | | | | | | | +--------+ + + + + | 11/20/ | Implant | Cardiology | Daljit Singletary, | Remote Device | | 2019 | Monitor | | MD [address] | Interrogation | | | | | [place], | (Primary Dx); | | | | | [place] [address] | Presence of | | | | | [phone] | permanent cardiac | | | | [...]
--- OUTSIDE RECORDS SUMMARY | ~2019-10-27 | XMS | Encounter Summary ---
Demographics + + + | Address | [address] | | | [place] [address] | + + + | Home Phone [...] Providers + +------+ + | Care Yield Improvement Engineer Name | Role | Phone | + +------+ + | Kirk French MD | PCP | | + +------+ + Encounter Details +--------+ + + + + | Date | Type | Department | Care Team | Description | +--------+ + + + + | 12/24/ | [facility] | [facility] | Emmanuel Daniel MD | Pain of upper | | 2018 | Encounter | MED CTR MP INTRA OP | [address] [place], [place] | abdomen (Primary | | | | [address] [place] | [address] [place], [place] | Dx); Functional | | | | [place], [place] | [address] | diarrhea; Weight | | | | [address] | | loss | | | | [phone] | | | +--------+ + + + [...] + + + +---------+ + + | Dinosaur-3 Fatty | CAPS, one capsule by | [...] | | | | | | [place] [address] | | | | | | [phone] | | | | | | | | +--------+ + + + + | 11/20/ | Implant | Cardiology | Daljit Singletary, | Remote Device | | 2019 | Monitor | | [address] [facility] | Interrogation | | | | | [address] [place], | (Primary Dx); | | | | | [place] [address] | Presence of | | | | | [phone] | permanent cardiac | | | | [...] + | Performed at: 01 - [facility] [place] [address], | REFERENCE LAB | | [place], [place] [address] Monkey Breeder: William Andrew MD, Phone: | [place] | | [phone] | | + + + + + + + + | Performing | Address | City/State/Zipcode | Phone Number | | Organization | | | | + + + + + | REFERENCE LAB | [address] | [place], [place] [address] | [phone] | | [facility] | Drive [...] + | [facility] | [address] [place] [address] | [place] | [phone] | | [facility] | | [address] | | | - LABORATORY | | [...] [address] | [place] | [phone] | | [facility] | | [address] | | | - LABORATORY | | [...] + | [address] | [address] [place] [address] | [place] | [phone] | | [facility] | | [address] | | | - LABORATORY | | [...] + + | Performed at: 01 - [facility] [address], | REFERENCE LAB | | [place], [place] [address] Monkey Breeder: William Andrew MD, Phone: | [place] [place] | | [phone] | | + + + + + + + + | Performing | Address | City/State/Zipcode | Phone Number | | Organization | | | | + + + + + | REFERENCE LAB | [address] | [place] [address] | [phone] | | [facility] [place] | Drive [...] + | [facility] | [address] [place] [address] | [place] | [phone] | | [facility] | | [address] | | | - LABORATORY | | [...] | [address] | [place], [place] | [phone] | | [facility] | | [address] | | | - LABORATORY | | [...] [address] | [place] | [phone] | | [facility] | | [address] | | | - LABORATORY | | [...] [address] | [place] | [phone] | | [facility] | | [address] | | | - LABORATORY | | [...] [address] | [place] | [phone] | | [facility] | | [address] | | | - LABORATORY | | | | + + + + + EGD (12/24/2017 1:19 PM PST) + + | Specimen | + + | | + + + + -+ | Narrative | Performed At | + + -+ | | [facility] | | GastroenterologyPatient Name: Moe Venegas Date: 12/24/2017 | PROVATION | | 1:19 PMMRN: [id number] #: [id number] of : | | | 9Admit Type: AmbulatoryAge: 57Room: [facility] 01Gender: MaleNote | | | Status: FinalizedAttending MD: Emmanuel Daniel , [facility] | | Upper GI endoscopyIndications: Diarrhea, Weight | | | lossProviders: Emmanuel Daniel MD, Maria Isabel Morris RN, | | | Kim Hicks, Lasting Machine Operator Bed, Jarett | | | Sapna Barakat MD [...] the anesthesiologist and | | | the gastroenterology technician in the endoscopy suite. Mental Status [...] [facility], [address] [facility] | | | [place] [address] | | | - Discharge patient to [...] Out: 1:31:13 PM | | | [facility], [address] [facility], [place], [place] | | | [address] | | + + -+ + +---------+ [...] 12/24/2017 | PROVATION | | 1:17 PMMRN: [id number] #: [id number] of : | | | 9Admit Type: AmbulatoryAge: 57Room: [facility] 01Gender: MaleNote | | | Status: FinalizedAttending MD: Emmanuel Daniel , [facility]cedure: | | | ColonoscopyIndications: Clinically significant diarrhea of | | | unexplained originProviders: Emmanuel Daniel MD, Maria Isabel | | | Arturo RN, Kim Hicks, Lasting Machine Operator Bed, | | | Jarett Barakat MD (Anesthesia [...] | | | the anesthesiologist and the gastroenterology technician in the endoscopy suite. | | [...] Scope In: 1:32:55 PMScope Out: 1:48:57 PM [facility] | | | [facility], [address] [place] [address] | | | [phone] | | | - Await pathology results. [...] [facility], [address] [place] [address] | | | [address] | | + + -+ + +---------+ [...] | colonic mucosa with focal adenomatous change. CLR:[facility]:C2NR | | | GROSS DESCRIPTION: [...] | | cm, submitted, all in (D1). ka:CLR:[facility] ADDITIONAL NOTES: | | | Immunohistochemical studies were performed on this case with the | | | appropriate positive controls that react as expected. This test was | | | developed and its performance characteristics determined by [employer] | | | [employer]. It has not been cleared or approved by the U.S. Food | | | and Drug Administration. The FDA has determined that such clearance | | | or approval is not necessary. This test is used for clinical | | | purposes. It should not be regarded as investigational or for | | | research. [employer] is certified under the Clinical | | | Laboratory Improvement Amendments of 1988 (CLIA) as qualified to | | | perform high complexity clinical laboratory testing. This assay | | | has not been validated for specimens that have been decalcified. | | | PERFORMING LABORATORY: Tissue processing and slide preparation were | | | performed by [employer], [facility] ., [facility] | | | [place] [address] (Vehicle Leasing And Rental Manager: Evan Frausto M.D. CLIA#: | | | [id number]). Professional interpretation was performed by [employer] ([employer]) | | | [employer], [facility] [address] [employer] ., [address], [place] [address] | | | (Vehicle Leasing And Rental Manager: Evan Frausto M.D.; CLIA#: [id number]). | | | Diagnostician: Rafael Bales MD [...]
--- OUTSIDE RECORDS SUMMARY | ~2019-10-27 | XMS | Encounter Summary ---
Demographics + + + | Address | [address] | | | [place] [address] | + + + | Home Phone [...] Providers + +------+ + | Care Stitcher Around Name | Role | Phone | + +------+ + PCP | Unavailable | + +------+ + Encounter Details +--------+ + + + + | Date | Type | Department | Care Team | Description | +--------+ + + + + | 06/17/ | Hospital | [facility] | | | | 2008 | Encounter | MED CTR EMERGENCY | | | | | | [place] [address] | | | | | | [place] | | | | | | [address] | | | | | | [phone] | | | +--------+ + + + [...] | | | | | | [place] [address] | | | | | | [phone] | | | | | | | | +--------+ + + + + | 11/20/ | Implant | Cardiology | Daljit Singletary, | Remote Device | | 2018 | Monitor | | [address] [facility] | Interrogation | | | | | [place], | (Primary Dx); | | | | | [place] [address] | Presence of | | | | | [phone] | permanent cardiac | | | | [...]
--- OUTSIDE RECORDS SUMMARY | ~2019-10-27 | XMS | Encounter Summary ---
Demographics + + + | Address | [address] | | | [place] [address] | + + + | Home Phone [...] Providers + +------+ + | Care Volunteer Assistant Name | Role | Phone | + +------+ + PCP | Unavailable | + +------+ + Encounter Details +--------+ + + + + | Date | Type | Department | Care Team | Description | +--------+ + + + + | 08/17/ | [facility] | [facility] | Evan Gandara MD | | | 2005 | Encounter | MED CTR LABORATORY | [address] [facility] | | | | | [address] | [place] | | | | | [place] | [address] | | | | | [address] | | | | | | [phone] | | | +--------+ + + + [...] | | | | | | [place] [address] | | | | | | [phone] | | | | | | | | +--------+ + + + + | 11/20/ | Implant | Cardiology | Daljit Singletary, | Remote Device | | 2019 | Monitor | | MD [address] | Interrogation | | | | | [place], | (Primary Dx); | | | | | [place] [address] | Presence of | | | | | [phone] | permanent cardiac | | | | [...]
--- OUTSIDE RECORDS SUMMARY | ~2019-10-27 | XMS | Encounter Summary ---
Demographics + + + | Address | [address] | | | [place] [address] | + + + | Home Phone [...] Team Providers + +------+ + | Care Applied Psychology Chair Name | Role | Phone | [...] | CARDIOLOGY [address] | MD [address] [place] | | | | | [place], | [place], | | | | | [place] [address] | [place] [address] | | | | | [phone] | [phone] | | | | | | | [...] W | | | | | | [place], | | | | | | [place] [address] | | | | | | [phone] | | | | | | | | +--------+ + + + + | 11/20/ | Implant | Cardiology | Daljit Singletary, | Remote Device | | 2018 | Monitor | | [address] [facility] | Interrogation | | | | | [place], | (Primary Dx); | | | | | [place] [address] | Presence of | | | | | [phone] | permanent cardiac | | | | [...]
--- OUTSIDE RECORDS SUMMARY | ~2019-10-27 | XMS | Encounter Summary ---
Demographics + + + | Address | [address] | | | [place] [address] | + + + | Home Phone [...] Providers + +------+ + | Care Music Sound Light Technician Name | Role | Phone | [...] + | 11/05/ | Telephone | [facility] | Daljit Singletary, | Chest Pain | | 2016 | | CARDIOLOGY [address] | MD [address] | | | | | [place], | [place], | | | | | [place] [address] | [place] [address] | | | | | [phone] | [phone] | | | | | | | [...] | | 2018 | Visit | | APRISA [address] | | | | | | [place], | | | | | | [place] [address] | | | | | | [phone] | | | | | | | | +--------+ + + + + | 11/20/ | Implant | Cardiology | Daljit Singletary, | Remote Device | | 2018 | Monitor | | MD [address] | Interrogation | | | | | [place], | (Primary Dx); | | | | | [place] [address] | Presence of | | | | | [phone] | permanent cardiac | | | | [...]
--- OUTSIDE RECORDS SUMMARY | ~2019-10-27 | XMS | Encounter Summary ---
Demographics + + + | Address | [address] | | | [place] [address] | + + + | Home Phone [...] Team Providers + +------+ + | Care Varnish Melter Name | Role | Phone | + +------+ + PCP | Unavailable | + +------+ + Encounter Details +--------+ + + + + | Date | Type | Department | Care Team | Description | +--------+ + + + + | 04/22/ | Hospital | [facility] | | | | 2011 | Encounter | MED CTR XRAY [address] | | | | | | [place] | | | | | | [place] [address] | | | | | | [phone] | | | +--------+ + + + [...] | | | | | | [place] [address] | | | | | | [phone] | | | | | | | | +--------+ + + + + | 11/20/ | Implant | Cardiology | Daljit Singletary, | Remote Device | | 2018 | Monitor | | MD [address] | Interrogation | | | | | [place], | (Primary Dx); | | | | | [place] [address] | Presence of | | | | | [phone] | permanent cardiac | | | | [...] + | [facility] Diagnostic Imaging Department | [facility] | | [address] [facility] | [facility] | | CT MYELOGRAM LUMBAR SPINE, [...] Transcribed Date/Time: | | | 04/23/2012 11:06 [facility] Caretaker: <Electronically Signed | | | by Jama Solis MD> 04/24/12 0730 | | + + + + + | Procedure Note | + + | Kevin, Rad Conversion - 12/29/2013 5:27 PM [facility] | | Diagnostic Imaging Department [address] [place] [address] | | CT MYELOGRAM LUMBAR SPINE, 04/22/2012 [...] <Electronically Signed by Jama Solis MD> 04/24/12 5330 | | | |L3-4: Minimal broad-based disk [...] 10:54 | |Transcribed Date/Time: 04/23/2012 11:06 | |[facility] Caretaker: | |<Electronically Signed by Jama Solis MD> 04/24/12 0130 | + + + +---------+ + + [...] + | [facility] Diagnostic Imaging Department | [facility] | | [address] [facility] | [facility] | | THORACIC CT MYELOGRAM | [...] Transcribed Date/Time: 04/22/2012 17:32 | | | [facility] Caretaker: <Electronically Signed by Jama Mason | | | MD Will> 04/23/12 1039 | | + + + + + | Procedure Note | + + | Kalpesh Brown Conversion - 12/29/2013 5:27 PM [facility] | | Diagnostic Imaging Department [address] [place] [address] | | THORACIC CT MYELOGRAM CLINICAL HISTORY: [...] 16:56 | |Transcribed Date/Time: 04/22/2012 17:32 | |[facility] Caretaker: | |<Electronically Signed by Jama Solis MD> [...] + | [facility] Diagnostic Imaging Department | [facility] | | [address] [facility] | [facility] | | CT MYELOGRAM CERVICAL SPINE [...] Similar study from | | | 09/02/2009, [facility]. FINDINGS: Firm bony ankylosis | | [...] Transcribed Date/Time: | | | 04/22/2012 17:25 [facility] Caretaker: <Electronically Signed | | | by Jama Solis MD> 04/23/12 1039 | | + + + + + | Procedure Note | + + | Kalpesh Brown Conversion - 12/29/2013 5:27 PM [facility] | | Diagnostic Imaging Department | | [address] [facility] | | | | [...] | | COMPARISON: Similar study from 09/02/2009, [facility]. | | | | FINDINGS: Firm [...] | Transcribed Date/Time: 04/22/2012 17:25 | | [facility] Caretaker: | | <Electronically Signed by Jama Solis MD> 04/23/12 1039 | + + + +---------+ + + | Performing | Address | City/State/Zipcode | Phone Number | | Organization | | | | + +---------+ + + | [facility] [place] | | | | | [facility] | | | | + +---------+ + + [place] Lumbar Puncture (04/22/2012 1:12 PM PDT) + + | Specimen | + + | | + + + + + | Narrative | Performed At | + + + | [facility] Diagnostic Imaging Department | [facility] | | [address] [facility] | [facility] | | LUMBAR MYELOGRAM INJECTION FOR [...] Transcribed Date/Time: 04/22/2012 16:36 | | | [facility] Caretaker: <Electronically Signed by Jama Mason | | | MD Will> 04/23/12 1039 | | + + + + + | Procedure Note | + + | Kalpesh Brown Conversion - 12/29/2013 5:27 PM [facility] | | Diagnostic Imaging Department [address] [place] [address] | | LUMBAR MYELOGRAM INJECTION FOR CT [...] 15:51 | |Transcribed Date/Time: 04/22/2012 16:36 | |[facility] Caretaker: | |<Electronically Signed by Jama Solis MD> [...]
--- OUTSIDE RECORDS SUMMARY | ~2019-10-27 | XMS | Encounter Summary ---
Demographics + + + | Address | [address] | | | [place] [address] | + + + | Home Phone [...] Providers + +------+ + | Care Fitness Management Director Name | Role | Phone | [...] + + | 08/04/ | Telephone | [facility] | Silvia, | Other (4 week event | | 2017 | | CARDIOLOGY [address] | PARISA Vernon [address] | monitor ) | | | | [place], | [place], | | | | | [place] [address] | [place] [address] | | | | | [phone] | [phone] | | | | | | | [...] | | | | | | [place] [address] | | | | | | [phone] | | | | | | | | +--------+ + + + + | 11/20/ | Implant | Cardiology | Daljit Singletary, | Remote Device | | 2018 | Monitor | | [address] [place] | Interrogation | | | | | [place], | (Primary Dx); | | | | | [place] [address] | Presence of | | | | | [phone] | permanent cardiac | | | | [...]
--- OUTSIDE RECORDS SUMMARY | ~2019-10-27 | XMS | Encounter Summary ---
Demographics + + + | Address | [address] | | | [place] [address] | + + + | Home Phone [...] Team Providers + +------+ + | Care Overedge Machine Operator Name | Role | Phone [...] [address] | | | | | [place], | [place], | | | | | [place] [address] | [place] [address] | | | | | [phone] | [phone] | | | | | | | [...] W | | | | | | [place], | | | | | | [place] [address] | | | | | | [phone] | | | | | | | | +--------+ + + + + | 11/20/ | Implant | Cardiology | Daljit Singletary, | Remote Device | | 2018 | Monitor | | [address] [facility] | Interrogation | | | | | [place], | (Primary Dx); | | | | | [place] [address] | Presence of | | | | | [phone] | permanent cardiac | | | | [...]
--- OUTSIDE RECORDS SUMMARY | ~2019-10-27 | XMS | Encounter Summary ---
Demographics + + + | Address | [address] | | | [place] [address] | + + + | Home Phone [...] + + | 06/26/ | Office | [facility] | Geri Angel, | Coronary artery | | 2015 | Visit | CARDIOLOGY [address] | BEATER WORKER HELPER [address] | disease involving | | | | [place], | [place] [facility], [place] | chipewwa coronary | | | | [place] [address] | [address] | artery without | | | | [phone] | | angina pectoris | | | [...] very active. He enjoys raising his Rott[place] ulís and working in yard in his spare time. He has had atypical chest discomfort that munoz s not occur with exertion. He went to [facility] at the end of for his symptoms [...] it. He is planning to travel to [facility] in the ve ry near future for up to a month due to his cmrzgs-gb-vxf having a significant stroke there MEDICAL, SURGICAL, [...] Preventative health care Coronary artery disease involving chipewwa coronary artery without angina pectoris Cannabis abuse, [...] mouth Daily. [address] [facility] Natural Products (OSTEO BI-FLEX/5-LOXIN [...] 3rd dose, call 911 25 tablet 11 [place]-3 Fatty Acids (SALMON OIL-1000 PO) CAPS, one [...] Daily. to reduce urinary frequenc y Lot #[id number], exp 07/2016 21 capsule 0 Specialty Vitamins [...] INTERROGATION REVIEWED BY: PARISA Velazquez DEVICE IDENTIFICATION: Stencil Typist: TutorialTab. Leads: Right atrium and right ventricle (dual [...] go back in 3 days to [place] for an attempt of ablation under [...] this chart may have been created with [employer] voice recognition software. Occasi onal wrong-word or [...] W | | | | | | [place], | | | | | | [place] [address] | | | | | | [phone] | | | | | | | | +--------+ + + + + | 11/20/ | Implant | Cardiology | Daljit Singletary, | Remote Device | | 2019 | Monitor | | [address] [facility] | Interrogation | | | | | [place], | (Primary Dx); | | | | | [place] [address] | Presence of | | | | | [phone] | permanent cardiac | | | | [...] PARISA Velazquez DEVICE IDENTIFICATION: | | | Stencil Typist: Watchfindertronic. Leads: Right atrium and right | | [...] + + | Coronary artery disease involving chipewwa coronary artery without angina pectoris - | | Primary | + + | SINUS BRADYCARDIA Sinoatrial node dysfunction | + + | Essential hypertension Unspecified essential hypertension | + + | Hyperlipidemia Other and unspecified hyperlipidemia | + + | Symptomatic PVCs Other premature beats | + + documented in this encounter
--- OUTSIDE RECORDS SUMMARY | ~2019-10-27 | XMS | Encounter Summary ---
Demographics + + + | Address | [address] | | | [place] [address] | + + + | Home Phone [...] Team Providers + +------+ + | Care Lift Team Technician Name | Role | Phone | [...] + | 09/13/ | Office | [facility] | Bahman Gant MD | Other dysphagia | | 2013 | Visit | OTOLARYNGOLOGY [address] | [address] [place] | (Primary Dx) | | | | [address] [place] | [address] [place], | | | | | [place], [place] | [place] [address] | | | | | [address] | [phone] | | | | | [phone] | | | +--------+---------+ + + + [...] MD - 09/13/2013 5:46 PM PDTSee dictation #[id number] signed by Joseph Gant MD at 09/13/2013 5:52 PM Bahman Lamb MD - 09/13/2013 12:00 AM PDT ENT AND AUDIOLOGY [address] [facility] [address] [place] [address] FAX: [phone] OFFICE VISIT The patient gives a history [...] Gant MD GM / MS JOB #: [id number] signed by Bahman Gant MD at 09/14/2013 [...] | | | | | | [place] [address] | | | | | | [phone] | | | | | | | | +--------+ + + + + | 11/20/ | Implant | Cardiology | Daljit Singletary, | Remote Device | | 2019 | Monitor | | [address] [facility] | Interrogation | | | | | [place], | (Primary Dx); | | | | | [place] [address] | Presence of | | | | | [phone] | permanent cardiac | | | | [...]
--- OUTSIDE RECORDS SUMMARY | ~2019-10-27 | XMS | Encounter Summary ---
Demographics + + + | Address | [address] | | | [place] [address] | + + + | Home Phone [...] Providers + +------+ + | Care Training Project Manager Name | Role | Phone [...] + + | 08/17/ | Office | [facility] | Michael Amanda, | Testosterone | | 2012 | Visit | [facility] [place] | DO [address] | deficiency (Primary | | | | [address] | [place] | Dx); Hypoglycemia; | | | | [place] | [address] | Herpes | | | | [address] | | | | | | [phone] | | | +--------+---------+ + + + [...] lowering his testosterone levels. He seen at [facility]. He was prescribed OxyContin and Dilaudid. [...] erectile dy sfunction. He was seen at [facility] yesterday and they prescribed him testostero ne cypionate injections. He's not sure when they wanted him to come back for labs. He has a followup appointment with [facility] in one month. Patient complains of [...] HTN (hypertension); Hypercholesterolemia; Bipolar 1 disorder; Insomnia; Professor Of Business Administration jennifer neck pain; Depression; Hyperlipidemia; BIPOLAR DISORDER [...] per orders. This note is dictated using [employer] voice recognition software. This note was dictated [...] | | | | | | [place] [address] | | | | | | [phone] | | | | | | | | +--------+ + + + + | 11/20/ | Implant | Cardiology | Daljit Singletary, | Remote Device | | 2018 | Monitor | | MD [address] | Interrogation | | | | | [place], | (Primary Dx); | | | | | [place] [address] | Presence of | | | | | [phone] | permanent cardiac | | | | [...]
--- OUTSIDE RECORDS SUMMARY | ~2019-10-27 | XMS | Encounter Summary ---
Demographics + + + | Address | [address] | | | [place] [address] | + + + | Home Phone [...] Providers + +------+ + | Care It Architect Name | Role | Phone | [...] [place] | | | | | [address] [place], [place] | [address] | | | | | [address] | | | | | | [phone] | | | +--------+ + + + [...] W | | | | | | [place], | | | | | | [place] [address] | | | | | | [phone] | | | | | | | | +--------+ + + + + | 11/20/ | Implant | Cardiology | Daljit Singletary, | Remote Device | | 2018 | Monitor | | [address] [facility] | Interrogation | | | | | [place], | (Primary Dx); | | | | | [place] [address] | Presence of | | | | | [phone] | permanent cardiac | | | | [...]
--- OUTSIDE RECORDS SUMMARY | ~2019-10-27 | XMS | Encounter Summary ---
Demographics + + + | Address | [address] [place] [address] | | | [place] [address] | + + + | Home Phone [...] [place] | | | | | [address] | | + + + + + Care Team Providers + +------+ + | Care Novelty Printing Machine Operator Name | Role | [...] | | | | | TRANSTHORACI | [place], [place] | for Health | | | | | C | [address] | and Healing, | | | | | ECHOCARDIOGR | Phone: | Building 1 | | | | | AM, ADULT | [phone] | [place], [place] | | | | | | Fax: | [address] | | | | | | [phone] | Phone: | | | | | | | [phone] | +--------+--------+ + + + + Reason [...] | | | | | | [place] [address] | | | | | | | Phone: | | | | | | | [phone] | | | | | | | Fax: | | | | | | | [phone] | | +--------+--------+ + + + + Encounter Details +--------+---------+ + + + | Date | Type | Department | Care Team | Description | +--------+---------+ + + + | 02/03/ | Office | Cardiology General | Arlette Drew, | Chest pain (Primary | | 2010 | Visit | at [facility] [address] | MD | Dx); Bradycardia; | | | | [address] Mailcode: | | Pacemaker | | | | [address] | | | | | | Health and Healing, | | | | | | Building | | | | | | floor [place], [place] | | | | | | [address] | | | | | | [phone] | | | +--------+---------+ + + + [...] per Dr. Drew's note. Farooq Jamil DO Tray Server Clinical supervisor evaporator/ Division of Cardiovascular Medicine Yajaira Borges, [place] - 02/09/2011 12:59 PM PDT PACEMAKER HISTORY Primary Care Provider: Darion Holden DO Excel Expert: Arlette Drew MD Moe Sanchez is a [...] pacemaker was put at the recommendation of Excel Expert Dr. Singletary from [place]. [place]. Pt. states lala bhatti was put>1 [...] Dr. Omero DREW MD CARDIOLOGY - GENERAL [address] Mailcode: Ch[facility], 9th Floor [facility] [address] documented in this en counter [...] ([facility]) | [facility] | | [facility] [address] [facility] | REGIONAL | | [place] [address] | LABORATORY | + + + + + + + + | Performing | Address | City/State/Zipcode | Phone Number | | Organization | | | | + + + + + | [facility] | [address] | [place] [address] | | | LABORATORY | | | [...] RLB ([facility]) | | | [facility] [place] [address] | | | [place] [address] | | + + + + + + + + | Performing | Address | City/State/Zipcode | Phone Number | | Organization | | | | + + + + + | [facility] | [address] | [place] [address] | | | LABORATORY | | | [...] | | | DEPARTMENT | | | MALAG[facility]Y | | | OF | | | [...] CENTER DEPARTMENT | [address] | [place] [address] | | | PATHOLOGY | [address] [...] DEPT OF | [address] | [place], [place] | | | CARDIOLOGY | [address] | [address] | | + + + + + [...] DEPT OF | [address] | [place], [place] | | | CARDIOLOGY | [address] | [address] | | + + + + + [...] view image for the detailed interpretation from [employer]i results. | CARDIOLOGY | + + + + + + + + | Performing | Address | City/State/Zipcode | Phone Number | | Organization | | | | + + + + + | [facility] DEPT OF | [address] | [place], [place] | | | CARDIOLOGY | [address] | [address] | | + + + + + documented in this encounter Visit Diagnoses + + | Diagnosis | + + | Chest pain - Primary Chest pain, unspecified | + + | Bradycardia Other specified cardiac dysrhythmias | + + | Pacemaker Cardiac pacemaker in situ | + + documented in this encounter
--- OUTSIDE RECORDS SUMMARY | ~2019-10-27 | XMS | Encounter Summary ---
Demographics + + + | Address | [address] | | | [place] [address] | + + + | Home Phone [...] Providers + +------+ + | Care Plastics Fabrication Supervisor Name | Role | Phone | + +------+ + PCP | Unavailable | + +------+ + Encounter Details +--------+ + + + + | Date | Type | Department | Care Team | Description | +--------+ + + + + | 05/13/ | Hospital | [facility] | | | | 2007 | Encounter | MED CTR EMERGENCY | | | | | | [place] [address] | | | | | | [place] | | | | | | [address] | | | | | | [phone] | | | +--------+ + + + [...] | | | | | | [place] [address] | | | | | | [phone] | | | | | | | | +--------+ + + + + | 11/20/ | Implant | Cardiology | Daljit Singletary, | Remote Device | | 2018 | Monitor | | [address] [facility] | Interrogation | | | | | [place], | (Primary Dx); | | | | | [place] [address] | Presence of | | | | | [phone] | permanent cardiac | | | | [...]
--- OUTSIDE RECORDS SUMMARY | ~2019-10-27 | XMS | Encounter Summary ---
Demographics + + + | Address | [address] | | | [place] [address] | + + + | Home Phone [...] Team Providers + +------+ + | Care Banana Expert Name | Role | Phone | [...] [facility] | HamptonJacek, | Diplopia (Primary | | 2012 | Visit | [facility] | [address] | Dx); Symptomatic | | | | [address] | [place] | PVCs; Hypertension | | | | [place], [place] | [address] | | | | | [address] | | | | | | [phone] | | | +--------+---------+ + + + [...] Double vision will affect your ability to corn popper distance. This means it will be harder [...] or, difficulty with vision, speech or walking [address]286[address] [place] [address]. All rights reserve d. This information is [...] from his pain clinic visit in the [facility] on Wednesday or he developed double [...] double vision. He was evaluated by Dr Rock and had a normal eye exam, nor [...] by mouth Daily. 30 tablet 6 [place]-3 Fatty Acids (SALMON OIL-1000 PO) CAPS, [...] | | | | | | [place] [address] | | | | | | [phone] | | | | | | | | +--------+ + + + + | 11/20/ | Implant | Cardiology | Daljit Singletary, | Remote Device | | 2018 | Monitor | | MD [address] | Interrogation | | | | | [place], | (Primary Dx); | | | | | [place] [address] | Presence of | | | | | [phone] | permanent cardiac | | | | [...] + | [facility] | [address] | [place] | [phone] | | [facility] | | [address] | | | - LABORATORY | | | | + + + + + | [facility] | [address] | [place] | | | [facility] | | [address] | | | - LABORATORY | | [...] + | [facility] | [address] | [place] | [phone] | | [facility] | | [address] | | | - LABORATORY | | | | + + + + + | [facility] | [address] | [place] | | | [facility] | | [address] | | | - LABORATORY | | [...] | [facility] | | | | [place] [facility] | | MEDICAL | | | [...] [address] | [place] | [phone] | | [facility] | | [address] | | | - LABORATORY | | | | + + + + + | [facility] | [address] | [place], [place] | | | [facility] | | [address] | | | - LABORATORY | | | | + + + + + documented in this encounter Visit Diagnoses + + | Diagnosis | + + | Diplopia - Primary | + + | Symptomatic PVCs Other premature beats | + + | Hypertension Unspecified essential hypertension | + + documented in this encounter
--- OUTSIDE RECORDS SUMMARY | ~2019-10-27 | XMS | Encounter Summary ---
Demographics + + + | Address | [address] | | | [place] [address] | + + + | Home Phone [...] Team Providers + +------+ + | Care Chemicals Fermentation Operator Name | Role | Phone | [...] | | CARDIOLOGY [address] | Janeen CRANE ENGINEER [address] | | | | | [place], | [place], | | | | | [place] [address] | [place] [address] | | | | | [phone] | [phone] | | | | | | | [...] | | | | | | [place] [address] | | | | | | [phone] | | | | | | | | +--------+ + + + + | 11/20/ | Implant | Cardiology | Daljit Singletary, | Remote Device | | 2018 | Monitor | | MD [address] | Interrogation | | | | | [place], | (Primary Dx); | | | | | [place] [address] | Presence of | | | | | [phone] | permanent cardiac | | | | [...]
--- OUTSIDE RECORDS SUMMARY | ~2019-10-27 | XMS | Encounter Summary ---
Demographics + + + | Address | [address] | | | [place] [address] | + + + | Home Phone [...] Providers + +------+ + | Care Dough Sheeter Name | Role | Phone | [...] | | | | CENTER [address] | [address] | | | | | [place] | [place] | | | | | [address] | [address] | | | | | [phone] | | | +--------+ + + + [...] + + + +---------+ + + | [place]-3 Fatty | CAPS, one capsule by | [...] | | | | | | | jena coronary | | | | | | | artery of jena | | | | | | | [...] | | | | | | [place] [address] | | | | | | [phone] | | | | | | | | +--------+ + + + + | 11/20/ | Implant | Cardiology | Daljit Singletary, | Remote Device | | 2018 | Monitor | | [address] [facility] | Interrogation | | | | | [place], | (Primary Dx); | | | | | [place] [address] | Presence of | | | | | [phone] | permanent cardiac | | | | [...] | | | | | | [employer] | | | | | [...] [address] | [place] | [phone] | | [facility] | | [address] | | | - LABORATORY | | [...] + | [facility] | [address] | [place] | [phone] | | [facility] | | [address] | | | - LABORATORY | | [...] in | 12 - 53 U/L | [facility] | | | | use as of January 18 | | [facility] | | | | 2018. Check reference [...] + | [facility] | [address] | [place] | [phone] | | [facility] | | [address] | | | - LABORATORY | | [...] | | MEDICAL | | | | mL/min/1.85v7Boxv than | | CENTER - | | [...] ST. | [address] | [place], [place] | [phone] | | [facility] | | [address] | | | - LABORATORY | | [...] + | [facility] | [address] | [place] | [phone] | | [facility] | | [address] | | | - LABORATORY | | [...] [address] | [place] | [phone] | | [facility] | | [address] | | | - LABORATORY | | [...] | | | | ANGELA MARADIAGA MD ([id number]) | | | | | | on [...] | | | | | Patient Address: [address] [place] [address] | | | | | | | [place] [address], | | | | | | + + + +------+---+---+ +---+---+ | | | +---+---+ documented in this encounter
--- OUTSIDE RECORDS SUMMARY | ~2019-10-27 | XMS | Encounter Summary ---
Demographics + + + | Address | [address] | | | [place] [address] | + + + | Home Phone [...] Eva ROUSE | | | | | [place], [place] | [address] | | | | | [address] | [place] [address] | | | | | [phone] | [phone] | | | | | | | [...] W | | | | | | [place], | | | | | | [place] [address] | | | | | | [phone] | | | | | | | | +--------+ + + + + | 11/20/ | Implant | Cardiology | Daljit Singletary, | Remote Device | | 2018 | Monitor | | MD [facility] | Interrogation | | | | | [place], | (Primary Dx); | | | | | [place] [address] | Presence of | | | | | [phone] | permanent cardiac | | | | [...]
--- OUTSIDE RECORDS SUMMARY | ~2019-10-27 | XMS | Encounter Summary ---
Demographics + + + | Address | [address] | | | [place] [address] | + + + | Home Phone [...] Providers + +------+ + | Care Director Building Name | Role | Phone | + +------+ + PCP | Unavailable | + +------+ + Encounter Details +--------+ + + + + | Date | Type | Department | Care Team | Description | +--------+ + + + + | 01/21/ | Emergency | [facility] | Kirill Dominique | Unspecified Chest | | 2009 | | [facility]ICAL CENTER | MD Jonas [address] | Pain | | | | EMERGENCY CENTER | [address] [place] | | | | | [address] | [address] | | | | | [place] | [phone] | | | | | [address] | | | | | | [phone] | | | +--------+ + + + [...] W | | | | | | [place], | | | | | | [place] [address] | | | | | | [phone] | | | | | | | | +--------+ + + + + | 11/20/ | Implant | Cardiology | Daljit Singletary, | Remote Device | | 2019 | Monitor | | [address] | Interrogation | | | | | [place], | (Primary Dx); | | | | | [place] [address] | Presence of | | | | | [phone] | permanent cardiac | | | | [...]
--- OUTSIDE RECORDS SUMMARY | ~2019-10-27 | XMS | Encounter Summary ---
Demographics + + + | Address | [address] | | | [place] [address] | + + + | Home Phone [...] Providers + +------+ + | Care Fire Extinguisher Inspector Name | Role | Phone | + +------+ + | Michael Amanda DO | PCP | | + +------+ + Encounter Details +--------+ + + + + | Date | Type | Department | Care Team | Description | +--------+ + + + + | 07/25/ | Abstract | [facility] [place] [facility] | Michael Amanda, | | | 2013 | | [facility] | DO [address] | | | | | [address] | [place] | | | | | [place] | [address] | | | | | [address] | | | | | | [phone] | | | +--------+ + + + [...] | | | | | | [place] [address] | | | | | | [phone] | | | | | | | | +--------+ + + + + | 11/20/ | Implant | Cardiology | Daljit Singletary, | Remote Device | | 2018 | Monitor | | [facility] | Interrogation | | | | | [place], | (Primary Dx); | | | | | [place] [address] | Presence of | | | | | [phone] | permanent cardiac | | | | [...]
--- OUTSIDE RECORDS SUMMARY | ~2019-10-27 | XMS | Encounter Summary ---
Demographics + + + | Address | [address] | | | [place] [address] | + + + | Home Phone [...] Providers + +------+ + | Care Bridal Consultant Name | Role | Phone | [...] | CARDIOLOGY [address] | [address] [place] | Interrogation | | | | [place], | [place], | (Primary Dx); | | | | [place] [address] | [place] [address] | Presence of | | | | [phone] | [phone] | permanent cardiac | | | | [...] | | | | | | [place] [address] | | | | | | [phone] | | | | | | | | +--------+ + + + + | 11/20/ | Implant | Cardiology | Daljit Singletary, | Remote Device | | 2019 | Monitor | | [address] [place] | Interrogation | | | | | [place], | (Primary Dx); | | | | | [place] [address] | Presence of | | | | | [phone] | permanent cardiac | | | | [...] remote PDF scanned into | | | Nanostim for remote interrogation results. Data collected by [...]
--- OUTSIDE RECORDS SUMMARY | ~2019-10-27 | XMS | Encounter Summary ---
Demographics + + + | Address | [address] | | | [place] [address] | + + + | Home Phone [...] Providers + +------+ + | Care Drain Technician Name | Role | Phone | [...] | | | [place], [place] | [place] [address] | | | | | | [address] | Phone: | | | | | | Phone: | [phone] | | | | | | [phone] | Fax: | | | | | | Fax: | [phone] | | | | | | [phone] | | +--------+ + + + + + Reason for Visit + + + | Reason | Comments | + + + | Medicare Wellness | | + + + Encounter Details +--------+---------+ + + + | Date | Type | Department | Care Team | Description | +--------+---------+ + + + | 07/25/ | Office | [facility] [place] [facility] | Michael Amanda, | Preventative health | | 2014 | Visit | [facility] [place] | DO [address] | care (Primary Dx); | | | | [address] | [place] | Cannabis abuse, | | | | [place] | [address] | daily use; Urinary | | | | [address] | | frequency; | | | | [phone] | | Incontinence; | | | | [...] needed for Chest pain. 25 tablet 12 [place]-3 Fatty Acids (SALMON OIL-1000 PO) CAPS, one capsule by mouth daily twice daily ONE TOUCH DELICA LANCETS [facility] Check glucose as needed for hypoglycemia 100 [...] as Nurse Practitioner (Cardiology) FENG Chou (Physician Gift Shop Manager) Current Medicare Suppliers: [facility] - [place], [place] - [address] [place] [address] [facility] - [place], [place] - [address] [place] [address] HEALTH RISK ASSESSMENT: : The patient or [...] following health maintenance items are reviewed in [facility] and correct as of today: [...] no kevin in the usual sections in Scoopinion. documented in this en counter Plan of Treatment +--------+ + + + + | Date | Type | Specialty | Care Team | Description | +--------+ + + + + | 11/09/ | Office | Cardiology | Silvia, | | | 2018 | Visit | | PARISA Vernon [address] | | | | | | [place], | | | | | | [place] [address] | | | | | | [phone] | | | | | | | | +--------+ + + + + | 11/20/ | Implant | Cardiology | Joshcrispincherelle Shaistakenneth, | Remote Device | | 2018 | Monitor | | [facility] | Interrogation | | | | | [place], | (Primary Dx); | | | | | [place] [address] | Presence of | | | | | [phone] | permanent cardiac | | | | [...] Primary Routine general medical examination at [facility] | | care facility | + [...]
--- OUTSIDE RECORDS SUMMARY | ~2019-10-27 | XMS | Encounter Summary ---
Demographics + + + | Address | [address] | | | [place] [address] | + + + | Home Phone [...] Providers + +------+ + | Care Manager Home Healthcare Name | Role | Phone | + [...] | Office | [facility] [place] | Sivlia, | Symptomatic PVCs | | 2012 | Visit | CARDIOLOGY [address] | PARISA Vernon [address] | (Primary Dx); | | | | [place], | [place], | Bradycardia; HTN | | | | [place] [address] | [place] [address] | (hypertension) | | | | [phone] | [phone] | | | | | | | [...] at which time patient was going to [place] for store protection specialist co nsult and PVC ablation. Since [...] tablet Take 1,000 mg by mouth Daily. [place]-3 Fatty Acids (SALMON OIL-1000 PO) CAPS, [...] ventricular arrhythmia performed by Dr. Gambino at [facility] on 01/30/2013. Patient had spontaneous [...] to go back in 3 days to [place] for an attempt of ablation under general [...] He is in a class II of [place] 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 There is no [...] been encouraged to keep his appointment with store protection specialist this coming y to attempt ablation therapy. 4. Follow up appointment in 4-6 weeks. I, PARISA Russell, saw this patient under the direct supervision of Daljit Singletary MD Portions of this report were transcribed using voice recognition software. Every effort wa s made to ensure accuracy; however, inadvertent computerized certified personal chef errors may be pre sent. documented in this encounter Plan of Treatment +--------+ + + + + | Date | Type | Specialty | Care Team | Description | +--------+ + + + + | 11/09/ | Office | Cardiology | Silvia, | | | 2019 | Visit | | PARISA Vernon [address] | | | | | | [place], | | | | | | [place] [address] | | | | | | [phone] | | | | | | | | +--------+ + + + + | 11/20/ | Implant | Cardiology | Daljit Singletary, | Remote Device | | 2019 | Monitor | | [facility] | Interrogation | | | | | [place], | (Primary Dx); | | | | | [place] [address] | Presence of | | | | | [phone] | permanent cardiac | | | | [...]
--- OUTSIDE RECORDS SUMMARY | ~2019-10-27 | XMS | Clinical Summary ---
Demographics + + + | Address | [address] | | | [place] [address] | + + + | Home Phone [...] Team Providers + +------+ + | Care Lounge Car Attendant Name | Role | Phone [...] | | + + + +---------+------+------+-------+ | [place]-3 Fatty | CAPS, one capsule by | [...] tununak | | | | | | | [...] artery disease involving tununak coronary artery of | 12/21/2013 | | tununak heart without angina pectoris | | + [...] attenuation cannot | | completely be ruled out.[facility] 12/25/13, shows non critical coronary [...] | | CT Angiogram chest w/constrast 05/26/14 [facility] | + + + + [...] back in 3 days to | | [place] for an attempt of ablation under general [...] IMPLANTED GENERATOR | | Medtronic DDD [id number] [id number] 06/14/09 RV LEAD Medtronic Active | | Bipolar CapSureFix 4076 [id number] 06/14/09 A LEAD Medtronic | | Active Bipolar CapSurFix 4076 [id number] 06/14/09 | + + + +---+ | [...] | Heart Cath, 02/29/2012, LVEF is 65%, [facility], | | Nuclear Medicine Myocardial Gated Stress Test, 05/25/2009, EF 53 | | % during rest and 52% during stress. [facility], | | Trilla, Ri.Persantine Sestamibi Stress Test, 06/14/2008, LVEF is | | 60%, [facility] 12/25/13, shows noncritical | | [...] Plan: Nonobstructive CAD noted | | on [facility] from 2013, no EKG changes, [...] | | | | | | [place] [address] | | | | | | [phone] | | | | | | | | +--------+ + + + + | 11/20/ | Implant | Cardiology | Daljit Singletary, | Remote Device | | 2018 | Monitor | | [facility] | Interrogation | | | | | [place], | (Primary Dx); | | | | | [place] [address] | Presence of | | | | | [phone] | permanent cardiac | | | | [...] | CAMERON BARNES | | 09/27/ | [id number] | | - [id number]: | | Ureter | INCORPORATE | | 2020 | / | | Qty: 1 on 04/13/2019 by | | | D | | | /[id number] | | Matthew Uriarte MD at | | | | | | 57 | | [facility] | | | | | | | | [facility] | | | | | | | [...] +--------+ +---------+--------+ | MEDICARE | MEDICA | [id number] | 01/21/20 | [phone] | | Medica | | | RE | | 01-Pre | 5 | | re | | | PART A | | sent | | | | | | AND B | | | | | | + +--------+ +--------+ +---------+--------+ | MEDICARE | MEDICA | [id number] | 01/21/20 | [phone] | | Medica | | | RE | | 01-Pre | 5 | | re | | | PART A | | sent | | | | | | AND B | | | | | | + +--------+ +--------+ +---------+--------+ | AARP | AARP | [id number] | 12/1/2 | [phone] | | Indemn | | | MDCR | | 016-Pr | 0 | | ity | | | SUPPL | | esent | | | | + +--------+ +--------+ +---------+--------+ | AARP | AARP | [id number] | 11/22/19 | [phone] | | Indemn [...] Person | Self | [birth year] | [address] | | Kirk | cristo/Per | | 1960 | [phone] | [place], [place] | | | roxanne | | | 8 (Home) | [address] | + +--------+ +--------+ + + | Moe Sanchez | Person | Self | [birth year] | | [address] | | Kirk | cristo/Per | | 1959 | [phone] | [place], [place] | | | roxanne | | | 8 (Berry) | [address] | + +--------+ +--------+ + + | Moe Sanchez | Third | Self | [birth year] | | [address] | | Kirk | Democrat | | 1959 | [phone] | [place] | | | Liabil | | | 3 (Berry) | [address] | | | ity | | | | | + +--------+ +--------+ + + Advance Directives + + + + + | Type | Date Recorded | Patient | Explanation | | | | Manager Car | | + + + + + | Power of | | | | | Shiatsu Therapist | | | | + + + [...]
--- OUTSIDE RECORDS SUMMARY | ~2019-10-27 | XMS | Encounter Summary ---
Demographics + + + | Address | [address] | | | [place] [address] | + + + | Home Phone [...] + | 09/01/ | Telephone | [facility] | Silvia, | Appointment | | 2016 | | CARDIOLOGY [address] | PARISA Vernon [address] | (Reschedule) | | | | [place], | [place], | | | | | [place] [address] | [place] [address] | | | | | [phone] | [phone] | | | | | | | [...] | | | | | | [place] [address] | | | | | | [phone] | | | | | | | | +--------+ + + + + | 11/20/ | Implant | Cardiology | Daljit Singletary, | Remote Device | | 2018 | Monitor | | [address] [place] | Interrogation | | | | | [place], | (Primary Dx); | | | | | [place] [address] | Presence of | | | | | [phone] | permanent cardiac | | | | [...]
--- OUTSIDE RECORDS SUMMARY | ~2019-10-27 | XMS | Encounter Summary ---
Demographics + + + | Address | [address] [place] [address] | | | [place] [address] | + + + | Home Phone [...] [place] | | | | | [address] | | + + + + + Care Team Providers + +------+ + | Care Filtration Plant Mechanic Name | Role | Phone [...] 2019 | | Center at [facility] | Gastroenterology | Gastroenterology | | | | ILA Tremayne Crane | | | | | | Mailcode: [place] | | | | | | [facility] and | | | | | | [place] [address] | | | | | | [place], [place] | | | | | | [address] | | | | | | [phone] | | | +--------+ + + + [...]
--- OUTSIDE RECORDS SUMMARY | ~2019-10-27 | XMS | Encounter Summary ---
Demographics + + + | Address | [address] | | | [place] [address] | + + + | Home Phone [...] Providers + +------+ + | Care Ambulance Driver Paramedic Name | Role | Phone | [...] CASE | RN | (referral from [facility]) | | | | MANAGEMENT [address] | | | | | | [place], | | | | | | [place] [address] | | | | | | [phone] | | | +--------+ + + + [...] | | | | | | [place] [address] | | | | | | [phone] | | | | | | | | +--------+ + + + + | 11/20/ | Implant | Cardiology | Daljit Singletary, | Remote Device | | 2018 | Monitor | | [address] [place] | Interrogation | | | | | [place], | (Primary Dx); | | | | | [place] [address] | Presence of | | | | | [phone] | permanent cardiac | | | | [...]
--- OUTSIDE RECORDS SUMMARY | ~2019-10-27 | XMS | Encounter Summary ---
Demographics + + + | Address | [address] | | | [place] [address] | + + + | Home Phone [...] Team Providers + +------+ + | Care Shirt Line Operator Name | Role | Phone [...] | | | | [place] | [address] | | | | | [address] | | | | | | [phone] | | | +--------+ + + + [...] | | | | | [place], | | | | | | [place] [address] | | | | | | [phone] | | | | | | | | +--------+ + + + + | 11/20/ | Implant | Cardiology | Daljit Singletary, | Remote Device | | 2018 | Monitor | | MD [address] [place] | Interrogation | | | | | [place], | (Primary Dx); | | | | | [place] [address] | Presence of | | | | | [phone] | permanent cardiac | | | | [...]
--- OUTSIDE RECORDS SUMMARY | ~2019-10-27 | XMS | Encounter Summary ---
Demographics + + + | Address | [address] | | | [place] [address] | + + + | Home Phone [...] Team Providers + +------+ + | Care Stores Assistant Name | Role | Phone | [...] + | 12/23/ | Telephone | [facility] | Daljit Singletary, | Other (question | | 2015 | | CARDIOLOGY [address] | [address] [place] | about diet | | | | [place], | [place], | medication) | | | | [place] [address] | [place] [address] | | | | | [phone] | [phone] | | | | | | | [...] W | | | | | | [place], | | | | | | [place] [address] | | | | | | [phone] | | | | | | | | +--------+ + + + + | 11/20/ | Implant | Cardiology | Daljit Singletary, | Remote Device | | 2018 | Monitor | | MD [address] [place] | Interrogation | | | | | [place], | (Primary Dx); | | | | | [place] [address] | Presence of | | | | | [phone] | permanent cardiac | | | | [...]
--- OUTSIDE RECORDS SUMMARY | ~2019-10-27 | XMS | Encounter Summary ---
Demographics + + + | Address | [address] | | | [place] [address] | + + + | Home Phone [...] Team Providers + +------+ + | Care Stuffing Machine Operator Name | Role | Phone | + +------+ + PCP | Unavailable | + +------+ + Encounter Details +--------+ + + + + | Date | Type | Department | Care Team | Description | +--------+ + + + + | 01/17/ | [facility] | [facility] | Jonas Ramos, | | | 2009 | Encounter | MED CTR EMERGENCY | MD [address] | | | | | CENTER [address] [place] | [facility] [place] | | | | | [place] | [place] [address] | | | | | [address] | [phone] | | | | | [phone] | | | +--------+ + + + [...] W | | | | | | [place], | | | | | | [place] [address] | | | | | | [phone] | | | | | | | | +--------+ + + + + | 11/20/ | Implant | Cardiology | Daljit Singletary, | Remote Device | | 2019 | Monitor | | MD Sim [facility] | Interrogation | | | | | [place], | (Primary Dx); | | | | | [place] [address] | Presence of | | | | | [phone] | permanent cardiac | | | | [...]
--- OUTSIDE RECORDS SUMMARY | ~2019-10-27 | XMS | Encounter Summary ---
Demographics + + + | Address | [address] | | | [place] [address] | + + + | Home Phone [...] Team Providers + +------+ + | Care Coater Slate Name | Role | Phone | + [...] 12/14/ | Telephone | [facility] | Emmanuel Daniel MD | Follow-up, Office | | 2019 | | GASTROENTEROLOGY | [address], [place] | Visit (wants to | | | | [address] [place] | [address] [place] | cancel his office | | | | [address] [place] | [address] | appointment today) | | | | [address] | | | | | | [phone] | | | +--------+ + + + [...] | | | | | | [place] [address] | | | | | | [phone] | | | | | | | | +--------+ + + + + | 11/20/ | Implant | Cardiology | Daljit Singletary, | Remote Device | | 2019 | Monitor | | [address] [facility] | Interrogation | | | | | [place], | (Primary Dx); | | | | | [place] [address] | Presence of | | | | | [phone] | permanent cardiac | | | | [...]
--- OUTSIDE RECORDS SUMMARY | ~2019-10-27 | XMS | Encounter Summary ---
Demographics + + + | Address | [address] | | | [place] [address] | + + + | Home Phone [...] Providers + +------+ + | Care Finished Hardware Erector Name | Role | Phone | [...] type ER | [address] | | | | | FUP | ST [place] | [place], | | | | | Procedures | [place], [place] | [place] [address] | | | | | FUP - SUW & | [address] | Phone: | | | | | EVM PT, LAST | Phone: | [phone] | | | | | SEEN | [phone] | Fax: | | | | | 08-24-18 | Fax: | [phone] | | | | | | [phone] | | +--------+ + + + + [...] | | | | CENTER [address] | [address] [place] | (Primary Dx) | | | | [place], [place] | [place] [address] | | | | | [address] | [phone] | | | | | [phone] | | | +--------+ + + + [...] through Care Everywhere.Chest Pain, Unc ertain Cause (Hebrew)documented in this encounter Medications at Time of [...] + + + +---------+ + + | [place]-3 Fatty | CAPS, one capsule by | [...] | | | | | | [place] [address] | | | | | | [phone] | | | | | | | | +--------+ + + + + | 11/20/ | Implant | Cardiology | Daljit Singletary, | Remote Device | | 2018 | Monitor | | [address] | Interrogation | | | | | [place], | (Primary Dx); | | | | | [place] [address] | Presence of | | | | | [phone] | permanent cardiac | | | | [...] | | | | ANGELA MARADIAGA MD ([id number]) | | | | | | on [...] | | | | | | [employer] | | | | | [...] [address] | [place] | [phone] | | [facility] | | [address] | | | - LABORATORY | | [...] [address] | [place] | [phone] | | [facility] | | [address] | | | - LABORATORY | | [...] - 1.030 | [facility] | | | [place] | | | [facility] | | [...] ST. | [address] | [place] | [phone] | | [facility] | | [address] | | | - LABORATORY | | [...] + | [facility] | [address] | [place] | [phone] | | [facility] | | [address] | | | - LABORATORY | | [...] [address] | [place] | [phone] | | [facility] | | [address] | | | - [...] | | | | | | [employer] | | | | | [...] [address] | [place] | [phone] | | [facility] | | [address] | | | - LABORATORY | | [...] | 0.96 | 0.60 - 1.30 | [facility] | | | | | mg/dL | [facility] | | | | | | MEDICAL | | | | | | CENTER - | | | | | | LABORATORY | | + + + + + + | eGFR if not | >60Comment: GLOMERULAR | >=60 | [facility] | | | | FILTRATION | mL/min/1.73m2 | [facility] | | | BENINESE | RATE,ESTIMATED | | MEDICAL | | | | mL/min/1.18n2Sksy than | | CENTER - | | [...] ST. | [address] | [place] | [phone] | | [facility] | | [address] | | | - LABORATORY | | [...] ST. | [address] | [place] | [phone] | | [facility] | | [address] | | | - LABORATORY | | [...] | | | | ANGELA MARADIAGA MD ([id number]) | | | | | | on [...]
--- OUTSIDE RECORDS SUMMARY | ~2019-10-27 | XMS | Encounter Summary ---
Demographics + + + | Address | [address] | | | [place] [address] | + + + | Home Phone [...] Providers + +------+ + | Care Egg Separator Name | Role | Phone | [...] MD | | | 2019 | | [facility] | [address], [place] | | | | | PATHOLOGY [address] | [address] [place], [place] | | | | | BLVD [place], [place] | [address] | | | | | [address] | | | | | | [phone] | | | +--------+ + + + [...] | | | | | | [place], | | | | | | [place] [address] | | | | | | [phone] | | | | | | | | +--------+ + + + + | 11/20/ | Implant | Cardiology | Daljit Singletary, | Remote Device | | 2018 | Monitor | | MD [address] [place] | Interrogation | | | | | [place], | (Primary Dx); | | | | | [place] [address] | Presence of | | | | | [phone] | permanent cardiac | | | | [...] | | | (atherosclerotic heart disease of [place] tribes coronary artery without | | | angina [...] chronic or | | | microscopic colitis. BES:[facility]:C3NR GROSS DESCRIPTION: A. The | | | specimen, labeled "Alma, duodenal biopsy" is received in formalin | | | and consists of seven 0.1-0.5 cm lin fragments. Entirely submitted in | | | (A1). B. The specimen, labeled "Alma, right colon" is received | | | in formalin and consists of six 0.2-0.3 cm lin fragments. Entirely | | | submitted in (B1). C. The specimen, labeled "Alma, left colon" | | | is received in formalin and consists of six 0.2-0.3 cm lin-pink | | | fragments. Entirely submitted in (C1). am:AMB:portillo PERFORMING | | | LABORATORY: The technical component was performed by [facility] | | | [facility], [address] [place] [id number] ([facility] Expert: | | | Kailey Stafford MD; CLIA# [id number]). Professional interpretation was | | | performed by [email or web address], [facility], [address] | | [place] [address] (Diamond Expert: Ishaan | | | Anthony Dao; CLIA#: [id number]). Diagnostician: Ishaan Dao | | | Pathologist [...]
--- OUTSIDE RECORDS SUMMARY | ~2019-10-27 | XMS | Encounter Summary ---
Demographics + + + | Address | [address] [place] [address] | | | [place] [address] | + + + | Home Phone [...] [place] | | | | | [address] | | + + + + + Care Team Providers + +------+ + | Care Cytology Technologist Name | Role | Phone | [...] | [facility] [address] | MD [address] | | | | | [address] | [facility] [place] | | | | | Mailcode: Center | [address] | | | | | for Health and | [phone] | | | | | [facility], [facility] 2 | | | | | | [place], [place] | | | | | | [address] | | | | | | [phone] | | | +--------+ + + + [...]
--- OUTSIDE RECORDS SUMMARY | ~2019-10-27 | XMS | Encounter Summary ---
Demographics + + + | Address | [address] | | | [place] [address] | + + + | Home Phone [...] Team Providers + +------+ + | Care Ventilation Equipment Tender Name | Role | Phone | + +------+ + PCP | Unavailable | + +------+ + Encounter Details +--------+ + + + + | Date | Type | Department | Care Team | Description | +--------+ + + + + | 02/28/ | [facility] | [facility] | Geri Angel, | | | 2011 | Encounter | MED CTR XRAY [address] | CRM FUNCTIONAL ANALYST [address] | | | | | [address] [place] | St [place] | | | | | [place] [address] | [address] | | | | | [phone] | | | +--------+ + + + [...] | | | | | | [place] [address] | | | | | | [phone] | | | | | | | | +--------+ + + + + | 11/20/ | Implant | Cardiology | Daljit Singletary, | Remote Device | | 2019 | Monitor | | [address] | Interrogation | | | | | [place], | (Primary Dx); | | | | | [place] [address] | Presence of | | | | | [phone] | permanent cardiac | | | | [...] + + | [facility] | [place] | | [address] [facility] | [facility] | | LEFT HEART CATHETERIZATION | [...] was taken to | | | Cardiac Pulmonology Technician. He was prepared and draped in the usual fashion | | | under a sterile technique and local anesthesia, percutaneous access | | | was obtained using #6- Scottish sheath in the right femoral artery. | | | Right heart cath was not performed in this patient. Left | | | ventriculography was performed using #6-Scottish pigtail catheter. | | | The selective coronary angiography were then performed in several | | | sagittal and oblique projection using the 6-Scottish JL 4 and #6 Scottish | | | 3DRC diagnostic catheters. The [...] Transcribed | | | Date/Time: 02/29/2012 09:09 Channel Marketing Manager: | | | <Electronically Signed by Daljit Singletary MD [facility] FASE> 02/29/12 | | | 1002 | | + + + + + | Procedure Note | + + | Kevin, Rad Conversion - 12/29/2013 5:04 PM [facility] | | Diagnostic Imaging Department | | [address] [place] | | | | | | [...] patient was taken to Cardiac | | Pulmonology Technician. He was prepared and draped in the usual fashion under a sterile | | technique and local anesthesia, percutaneous access was obtained using #6- | | Scottish sheath in the right femoral artery. Right heart cath was not performed | | in this patient. Left ventriculography was performed using #6-Scottish pigtail | | catheter. The selective coronary angiography were then performed in several | | sagittal and oblique projection using the 6-Scottish JL 4 and #6 Scottish 3DRC | | diagnostic catheters. The patient [...] | Transcribed Date/Time: 02/29/2012 09:09 | | Channel Marketing Manager: | | <Electronically Signed by Daljit Singletary MD [facility] ADELINE> 02/29/12 1002 | + [...]
--- OUTSIDE RECORDS SUMMARY | ~2019-10-27 | XMS | Encounter Summary ---
Demographics + + + | Address | [address] | | | [place] [address] | + + + | Home Phone [...] Providers + +------+ + | Care Final Inspection Supervisor Name | Role | Phone | [...] | | | | stenosis | L, SIDEWALK INSPECTOR [address] | | | | | | Procedures | [address] | | | | | | CT | [address] | | | | | | Myelography | [place], [place] | | | | | | Cervical | [address] | | | | | | Spine | Phone: | | | | | | | [phone] | | | | | | | Fax: | | | | | | | [phone] | | +--------+--------+ + + + + [...] + + | 06/04/ | Hospital | [facility] | Sariah, | Cervical spinal | | 2016 | Encounter | MED CTR CT [address] | Marietta Mason SIDEWALK INSPECTOR [address] | stenosis | | | | [place], | [address] | | | | | [place] [address] | [place] [address] | | | | | [phone] | [phone] | | | | | | | [...] | | | | | | [place] [address] | | | | | | [phone] | | | | | | | | +--------+ + + + + | 11/20/ | Implant | Cardiology | Daljit Singletary, | Remote Device | | 2019 | Monitor | | [facility] | Interrogation | | | | | [place], | (Primary Dx); | | | | | [place] [address] | Presence of | | | | | [phone] | permanent cardiac | | | | [...]
--- OUTSIDE RECORDS SUMMARY | ~2019-10-27 | XMS | Encounter Summary ---
Demographics + + + | Address | [address] | | | [place] [address] | + + + | Home Phone [...] Team Providers + +------+ + | Care Jackscrew Worker Name | Role | Phone | [...] | Telephone | [facility] [place] | Elizabeth, | LABS | | 2019 | | CARDIOLOGY [address] | Janeen BORE MILL OPERATOR FOR PLASTIC [address] | | | | | [place], | [place], | | | | | [place] [address] | [place] [address] | | | | | [phone] | [phone] | | | | | | | [...] | | | | | | [place], | | | | | | [place] [address] | | | | | | [phone] | | | | | | | | +--------+ + + + + | 11/20/ | Implant | Cardiology | Daljit Singletary, | Remote Device | | 2018 | Monitor | | [address] [place] | Interrogation | | | | | [place], | (Primary Dx); | | | | | [place] [address] | Presence of | | | | | [phone] | permanent cardiac | | | | [...]
--- OUTSIDE RECORDS SUMMARY | ~2019-10-27 | XMS | Encounter Summary ---
Demographics + + + | Address | [address] | | | [place] [address] | + + + | Home Phone [...] Providers + +------+ + | Care Recreational Counselor Name | Role | Phone | [...] [address] | | | | | | [place], [place] | (Fax) | | | | | [address] | | | | | | [phone] | | | +--------+ + + + [...] | | | | | | [place] [address] | | | | | | [phone] | | | | | | | | +--------+ + + + + | 11/20/ | Implant | Cardiology | Daljit Singletary, | Remote Device | | 2018 | Monitor | | [address] [facility] | Interrogation | | | | | [place], | (Primary Dx); | | | | | [place] [address] | Presence of | | | | | [phone] | permanent cardiac | | | | [...]
--- OUTSIDE RECORDS SUMMARY | ~2019-10-27 | XMS | Encounter Summary ---
Demographics + + + | Address | [address] | | | [place] [address] | + + + | Home Phone [...] Team Providers + +------+ + | Care Exerciser Name | Role | Phone | + [...] | 09/30/ | Telephone | [facility] [place] | Daljit Singletary, | Other (Danieljoao | | 2018 | | [place] [address] | [address] | remote) | | | | [place], | [place], | | | | | [place] [address] | [place] [address] | | | | | [phone] | [phone] | | | | | | | [...] W | | | | | | [place], | | | | | | [place] [address] | | | | | | [phone] | | | | | | | | +--------+ + + + + | 11/20/ | Implant | Cardiology | Daljit Singletary, | Remote Device | | 2018 | Monitor | | MD [address] [place] [address] | Interrogation | | | | | [place], | (Primary Dx); | | | | | [place] [address] | Presence of | | | | | [phone] | permanent cardiac | | | | [...]
--- OUTSIDE RECORDS SUMMARY | ~2019-10-27 | XMS | Encounter Summary ---
Demographics + + + | Address | [address] | | | [place] [address] | + + + | Home Phone [...] Providers + +------+ + | Care Research Rn Spec Name | Role | Phone | [...] [place] | | | | | [place] | | [address] Phone: | | | | | CYSTO/URETER | | [phone] | | | | | [place] | | Fax: | | | | | W/LITHOTRIPS | | [phone] | | | | | Y &INDWELL [...] | | | | | [address] | [place] | | | | | [place] | [address] | | | | | [address] | | | | | | [phone] | | | +--------+ + + + [...] +----+---+ + + | | 0 | Cornucopia | | | | 8 | 43-degrees | | | | 2 | | | | | 7 | | | +----+---+ + + | | 0 | First | | | | 8 | Inc/Proc St | | | | 2 | | | | | 8 | | | +----+---+ + + | | 0 | Cornucopia off | | | | 9 | [...] 04/13/19 1219 by | | eral | [id number] catheter system; | Dominga Steen RN | [...] | | | | | | [place] [address] | | | | | | [phone] | | | | | | | | +--------+ + + + + | 11/20/ | Implant | Cardiology | Daljit Singletary, | Remote Device | | 2018 | Monitor | | MD [address] | Interrogation | | | | | [place] [place], | (Primary Dx); | | | | | [place] [address] | Presence of | | | | | [phone] | permanent cardiac | | | | [...] 8:23 | | | | | [facility] 04/13/19 at 0823, | | AM PDT [...]
--- OUTSIDE RECORDS SUMMARY | ~2019-10-27 | XMS | Encounter Summary ---
Demographics + + + | Address | [address] | | | [place] [address] | + + + | Home Phone [...] Providers + +------+ + | Care Server Software Engineer Name | Role | Phone | + +------+ + | Michael Amanda DO | PCP | | + +------+ + Reason for Visit + + + | Reason | Comments | + + + | Follow-up | One month with [facility] 12/25/13 | + + + | Chest Pain | | + + + Encounter Details +--------+---------+ + + + | Date | Type | Department | Care Team | Description | +--------+---------+ + + + | 01/29/ | Office | [facility] | Silvia, | Other chest pain | | 2013 | Visit | CARDIOLOGY [address] | [address] | (Primary Dx); Chest | | | | [place], | [place], | pain; Coronary | | | | [place] [address] | [place] [address] | artery disease; | | | | [phone] | [phone] | Hyperlipidemia; | | | | | [...] last week to the emergency room at [facility] with a baljit st pain [...] needed for Chest pain. 25 tablet 12 [place]-3 Fatty Acids (SALMON OIL-1000 PO) CAPS, [...] was seen on the emergency room at [place] on 01/26/2014, he was ruled out A [...] pain. He is in class II of [place] 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 There are no [...] symptoms. He is in class II of [place] 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 There are no [...] to ensure accuracy; however, inadvertent computerized research quality assurance analyst errors may be pre sent. Electronically [...] | | | | | | [place] [address] | | | | | | [phone] | | | | | | | | +--------+ + + + + | 11/20/ | Implant | Cardiology | Daljit Singletary, | Remote Device | | 2018 | Monitor | | [address] [facility] | Interrogation | | | | | [place], | (Primary Dx); | | | | | [place] [address] | Presence of | | | | | [phone] | permanent cardiac | | | | [...] of unspecified type of vessel, | | eek or graft | + + | Hyperlipidemia Other and unspecified hyperlipidemia | + + | Symptomatic PVCs Other premature beats | + + | Hypertension Unspecified essential hypertension | + + documented in this encounter
--- OUTSIDE RECORDS SUMMARY | ~2019-10-27 | XMS | Encounter Summary ---
Demographics + + + | Address | [address] [place] [address] | | | [place] [address] | + + + | Home Phone [...] [place] | | | | | [address] | | + + + + + [...] | | | | | [place] | [facility] 2 | | | | | | [place], [place] | [place], [place] | | | | | | [address] | [address] | | | | | | Phone: | Phone: | | | | | | [phone] | [phone] | | | | | | Fax: | Fax: | | | | | | [phone] | [phone] | +--------+--------+ + + + + Encounter Details +--------+---------+ + + + | Date | Type | Department | Care Team | Description | +--------+---------+ + + + | 09/28/ | Office | [facility] | Bridgette Rios, | Chronic diarrhea | | 2019 | Visit | [facility] [address] | [address] | (Primary Dx); | | | | [address] | [place], [place] | Abdominal cramping; | | | | Mailcode: [place] | [address] | Unintentional weight | | | | for Health and | [phone] | loss | | | | [facility], [facility] 2 | | | | | | [place], [place] | | | | | | [address] | | | | | | [phone] | | | +--------+---------+ + + + [...] some lab orders to [facility] [place] 2. flexographic press set up operator the nortryptiline and take 1 tablet each [...] different fr om the original. Gastroenterology Clinic [facility] ~ Initial Consultation / New Patient [...] bowel disease. CT scan done through [facility] November show ed mild diverticulosis without [...] of Present Illness: Here with his from [place] for second opinion regarding severe abdominal cramps, isreal rrhea and weight loss following a GI illness contracted during a trip to [facility]. He reports that 2 years ago he was traveling in [facility] and he had some suspicious seafood. He develo ps profound bloody diarrhea with severe abdominal pain. He was hospitalized in [facility] and w as treated with IV [...] file Gets together: Not on file Attends buddhism service: Not on file Active member of [...] Plan and Recommendations: 1. [facility] in [place] for stool studies as outlined above 2. If negative and symptoms persist, recommend capsule endoscopy (this could be completed b y local cleaning custodian or he could return to [place] for this test) 3. Nortryptiline 25mg q HS with instruction to titrate to 50mg q HS after 2 weeks if tolera kevin Follow-Up: with local cleaning custodian Counseling Time: I spent a total of 35 minutes with this patient, of which greater than 50 % of the time was spent in counseling. Specific issues that were discussed included a revie w of the disease, diagnostic tools that help in our management plans for the patient's chron ic diarrhea, abdominal cramping and weight loss and goals for treatment. Bridgette Rios MD Patient Insurance Clerk Gastroenterology documented in this e ncounter Plan [...]
--- OUTSIDE RECORDS SUMMARY | ~2019-10-27 | XMS | Encounter Summary ---
Demographics + + + | Address | [address] | | | [place] [address] | + + + | Home Phone [...] Team Providers + +------+ + | Care Stagecraft Teacher Name | Role | Phone | [...] 2019 | | GASTROENTEROLOGY | [address], [place] | | | | | [address] [place] | [address] [place], [place] | | | | | [address] [place], [place] | [address] | | | | | [address] | | | | | | [phone] | | | +--------+ + + + [...] W | | | | | | [place], | | | | | | [place] [address] | | | | | | [phone] | | | | | | | | +--------+ + + + + | 11/20/ | Implant | Cardiology | Daljit Singletary, | Remote Device | | 2019 | Monitor | | [address] | Interrogation | | | | | [place], | (Primary Dx); | | | | | [place] [address] | Presence of | | | | | [phone] | permanent cardiac | | | | [...]
--- OUTSIDE RECORDS SUMMARY | ~2019-10-27 | XMS | Encounter Summary ---
Demographics + + + | Address | [address] | | | [place] [address] | + + + | Home Phone [...] Providers + +------+ + | Care Greenhouse Transplanter Name | Role | Phone | + [...] + | 07/01/ | Telephone | [facility] | Daljti Singletary, | Other (EKG) | | 2017 | | CARDIOLOGY [address] | MD [address] [place] | | | | | [place], | [place], | | | | | [place] [address] | [place] [address] | | | | | [phone] | [phone] | | | | | | | [...] | | | | | | [place] [address] | | | | | | [phone] | | | | | | | | +--------+ + + + + | 11/20/ | Implant | Cardiology | Daljit Singletary, | Remote Device | | 2018 | Monitor | | [address] [facility] | Interrogation | | | | | [place], | (Primary Dx); | | | | | [place] [address] | Presence of | | | | | [phone] | permanent cardiac | | | | [...]
--- OUTSIDE RECORDS SUMMARY | ~2019-10-27 | XMS | Encounter Summary ---
Demographics + + + | Address | [address] | | | [place] [address] | + + + | Home Phone [...] Providers + +------+ + | Care Microbiology Lab Technician Name | Role | Phone [...] | 06/18/ | Emergency | [facility] | Dom Graham, | Cervical pain (neck) | | 2013 | | MED CTR EMERGENCY | MD [address] | (Primary Dx); | | | | CENTER [address] | [place] | Paresthesia and pain | | | | [place], [place] | [address] | of both upper | | | | [address] | | extremities | | | | [phone] | | | +--------+ + + + [...] cannot be sent through Care Everywhere.PARAESTHESIAS ( PRYDEINIG)NECK SPRAIN/STRAIN (PRYDEINIG)documented in this encounter Medications at Time of [...] + + + +---------+ + + | [place]-3 Fatty | CAPS, one capsule by | [...] | | | | | | [place] [address] | | | | | | [phone] | | | | | | | | +--------+ + + + + | 11/20/ | Implant | Cardiology | Daljit Singletary, | Remote Device | | 2018 | Monitor | | MD [address] | Interrogation | | | | | [place], | (Primary Dx); | | | | | [place] [address] | Presence of | | | | | [phone] | permanent cardiac | | | | [...] + | MISCELLANEOUS LAB | | | [phone] | + +---------+ + + | MISCELANIOUS LAB | | | [phone] | + +---------+ + + documented in this encounter Visit Diagnoses + + | Diagnosis | + + | Cervical pain (neck) - Primary Cervicalgia | + + | Paresthesia and pain of both upper extremities Disturbance of skin sensation | + + documented in this encounter
--- OUTSIDE RECORDS SUMMARY | ~2019-10-27 | XMS | Encounter Summary ---
Demographics + + + | Address | [address] | | | [place] [address] | + + + | Home Phone [...] Providers + +------+ + | Care Ore Fielder Name | Role | Phone | + [...] | | | | [place] | [address] | | | | | [address] | | | | | | [phone] | | | +--------+ + + + [...] | | | | | | [place], | | | | | | [place] [address] | | | | | | [phone] | | | | | | | | +--------+ + + + + | 11/20/ | Implant | Cardiology | Daljit Singletary, | Remote Device | | 2018 | Monitor | | MD [address] | Interrogation | | | | | [place], | (Primary Dx); | | | | | [place] [address] | Presence of | | | | | [phone] | permanent cardiac | | | | [...]
--- OUTSIDE RECORDS SUMMARY | ~2019-10-27 | XMS | Encounter Summary ---
Demographics + + + | Address | [address] | | | [place] [address] | + + + | Home Phone [...] Team Providers + +------+ + | Care Cad Designer Name | Role | Phone | [...] [place] | | | | | [place], [place] | [address] | | | | | [address] | [place] [address] | | | | | [phone] | [phone] | | | | | | | [...] | | | | | | [place] [address] | | | | | | [phone] | | | | | | | | +--------+ + + + + | 11/20/ | Implant | Cardiology | Daljit Singletary, | Remote Device | | 2018 | Monitor | | [address] | Interrogation | | | | | [place], | (Primary Dx); | | | | | [place] [address] | Presence of | | | | | [phone] | permanent cardiac | | | | [...] | | | Basophils | performed at [facility];[address] | 10*3/uL | LAB | | | | [address] | | | | | | [address];[place] [address] | | | | + + + [...] | | | | | Blvd;[place] [address] | | | | + + + [...] | | | | | | at [facility];[address] [facility] | | | | | | [facility];[place] | | | | | | [address] | | | | + + + [...]
--- OUTSIDE RECORDS SUMMARY | ~2019-10-27 | XMS | Encounter Summary ---
Demographics + + + | Address | [address] | | | [place] [address] | + + + | Home Phone [...] Providers + +------+ + | Care Staff Home Therapy Rn Name | Role | Phone | [...] Visit | CARDIOLOGY [address] | Janeen, SUPERVISOR TYPESETTING [address] | disease) (Primary | | | | [place], | [place], | Dx); Bradycardia; | | | | [place] [address] | [place] [address] | HTN (hypertension); | | | | [phone] | [phone] | Lightheadedness | | | | | [...] tablet Take 1,000 mg by mouth Daily. [place]-3 Fatty Acids (SALMON OIL-1000 PO) CAPS, one [...] himself t o the emergency department at [facility] in [place], [place]. EKG showed normal s inus rhythm [...] patient to an electrophysiology specialist in [place] for further evaluation for P VC's ablation. I have given verbal instructions and written material for patient to read mo re about the procedure. 2. Check blood pressure and pulse twice daily for two weeks and return the log to our offic e. 3. Followup appointment after patient's appointment with auth specialist/ablation. IJaneen ARNP, saw this patient under the direct supervision of Daljit Singletary MD Portions of this report were transcribed using voice recognition software. Every effort wa s made to ensure accuracy; however, inadvertent computerized forming machine operator errors may be pre sent. documented in this encounter Plan of Treatment +--------+ + + + + | Date | Type | Specialty | Care Team | Description | +--------+ + + + + | 11/09/ | Office | Cardiology | Silvia, | | | 2018 | Visit | | [address] [place] [address] | | | | | | [place], | | | | | | [place] [address] | | | | | | [phone] | | | | | | | | +--------+ + + + + | 11/20/ | Implant | Cardiology | Daljit Singletary, | Remote Device | | 2018 | Monitor | | MD [address] [place] | Interrogation | | | | | [place], | (Primary Dx); | | | | | [place] [address] | Presence of | | | | | [phone] | permanent cardiac | | | | [...] of unspecified type | | of vessel, jamul or graft | + + | Bradycardia Other specified cardiac dysrhythmias | + + | HTN (hypertension) Unspecified essential hypertension | + + | Lightheadedness Dizziness and giddiness | + + documented in this encounter
--- OUTSIDE RECORDS SUMMARY | ~2019-10-27 | XMS | Encounter Summary ---
Demographics + + + | Address | [address] | | | [place] [address] | + + + | Home Phone [...] Team Providers + +------+ + | Care Glost Tile Shader Name | Role | Phone | + [...] [address] | | | | | [place], | [place], | | | | | [place] [address] | [place] [address] | | | | | [phone] | [phone] | | | | | | | [...] | | | | | | [place] [address] | | | | | | [phone] | | | | | | | | +--------+ + + + + | 11/20/ | Implant | Cardiology | Daljit Singletary, | Remote Device | | 2018 | Monitor | | [address] [place] | Interrogation | | | | | [place], | (Primary Dx); | | | | | [place] [address] | Presence of | | | | | [phone] | permanent cardiac | | | | [...] [address] | [place] | [phone] | | [facility] | | [address] | | | - LABORATORY | | [...]
--- OUTSIDE RECORDS SUMMARY | ~2019-10-27 | XMS | Encounter Summary ---
Demographics + + + | Address | [address] | | | [place] [address] | + + + | Home Phone [...] Providers + +------+ + | Care Manager Life Name | Role | Phone | [...] CARDIOLOGY [address] | MD [address] | Dx); SINUS | | | | [place], | [place], | [place] | | | | [place] [address] | [place] [address] | | | | | [phone] | | | | | | | [...] | | | | | | [place] [address] | | | | | | [phone] | | | | | | | | +--------+ + + + + | 11/20/ | Implant | Cardiology | Daljit Singletary, | Remote Device | | 2019 | Monitor | | [facility] | Interrogation | | | | | [place], | (Primary Dx); | | | | | [place] [address] | Presence of | | | | | [phone] | permanent cardiac | | | | [...]
--- OUTSIDE RECORDS SUMMARY | ~2019-10-27 | XMS | Encounter Summary ---
Demographics + + + | Address | [address] | | | [place] [address] | + + + | Home Phone [...] Team Providers + +------+ + | Care Cow Buyer Name | Role | Phone | [...] + + | 08/29/ | Office | [facility] | [place]via, | Essential | | 2015 | Visit | CARDIOLOGY [address] | [address] | hypertension | | | | [place], | [place], | (Primary Dx); | | | | [place] [address] | [place] [address] | Coronary artery | | | | [phone] | [phone] | disease involving | | | | | | teller coronary | | | | | | [...] was seen in the emergency room at [facility] on 08/23/20 15 and the ER physician reviewed his chart saying that there were 2 ultrasounds from [facility] both of them are clear of DVT but reveal some venous insufficiency. Today, arian ent tells me that he started having swelling in both his feet within a week when he got to [facility]. He had extensive traveling. He went [...] Preventative health care Coronary artery disease involving teller coronary artery without angina pectoris Cannabis abuse, [...] by mouth every evening. 90 tablet 3 [facility] [place] Natural Products [...] 3rd dose, call 911 100 tablet 3 [place]-3 Fatty Acids (SALMON OIL-1000 PO) CAPS, one [...] Daily. to reduce urinary frequenc y Lot #[id number], exp 07/2016 (Patient taking differently: Take 8 mg by mouth Daily. PATIENT STA YOSELIN NO LONGER TAKING THIS MEDICATION. STATED ON 08/29/2015. to reduce urinary frequency Lot #[id number], exp 07/2016) 21 capsule 0 Specialty Vitamins [...] PLTEX 163 07/26/2014 I reviewed records from [facility] for emergency department visit o n 08/23/2015. [...] brought reports to the emergency room at [facility] and according to the not es [...] to go back in 3 days to [place] for an attempt of ablation under general [...] dizziness. He is in class I-II of 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 T here are [...] this chart may have been created with Id[employer] voice recognition software. Occasi onal wrong-word or [...] | | | | | | [place] [address] | | | | | | [phone] | | | | | | | | +--------+ + + + + | 11/20/ | Implant | Cardiology | Sydni Singletary, | Remote Device | | 2019 | Monitor | | [address] [place] | Interrogation | | | | | [place], | (Primary Dx); | | | | | [place] [address] | Presence of | | | | | [phone] | permanent cardiac | | | | [...] the | | | | PDT | teller coronary | results section. | | | [...] groin through the popliteal fossa | [facility] | | in both lower extremities.. Grayscale [...] conveyed to the ordering provider, by the bodybuilder, | | | immediately following the exam. [...] to the ordering provider, by the | |bodybuilder, immediately following the exam. | | | | | |Dictated and Signed by: Emmanuel Gibbons MD | | Electronically signed: 08/29/2015 3:25 PM | + + + + + + + | Performing | Address | City/State/Rustcode | Phone Number | | Organization | | | | + + + + + | [facility] | [address] | [place] | [phone] | | [facility] | | [address] | | | - IMAGING | | [...] MD | | | | | | ([phone]) on 08/29/2015 | | | | | [...] + + | Coronary artery disease involving teller coronary artery without angina pectoris | + + | DVT (deep venous thrombosis), bilateral | + + documented in this encounter
--- OUTSIDE RECORDS SUMMARY | ~2019-10-27 | XMS | Encounter Summary ---
Demographics + + + | Address | [address] | | | [place] [address] | + + + | Home Phone [...] Providers + +------+ + | Care Shower Maid Name | Role | Phone | [...] | 05/08/ | Telephone | [facility] | Emmanuel Daniel MD | Other | | 2019 | | GASTROENTEROLOGY | [address], [place] | | | | | [address] [place] | [address] [place], [place] | | | | | [address] [place], [place] | [address] | | | | | [address] | | | | | | [phone] | | | +--------+ + + + [...] W | | | | | | [place], | | | | | | [place] [address] | | | | | | [phone] | | | | | | | | +--------+ + + + + | 11/20/ | Implant | Cardiology | Daljit Singletary, | Remote Device | | 2018 | Monitor | | MD [address] | Interrogation | | | | | [place], | (Primary Dx); | | | | | [place] [address] | Presence of | | | | | [phone] | permanent cardiac | | | | [...]
--- OUTSIDE RECORDS SUMMARY | ~2019-10-27 | XMS | Encounter Summary ---
Demographics + + + | Address | [address] | | | [place] [address] | + + + | Home Phone [...] + +------+ + | Care Petroleum Products Sales Representative Name | Role | Phone [...] + | 01/02/ | Telephone | [facility] | Daljit Singletary, | Other (chest pain) | | 2018 | | CARDIOLOGY [address] | MD [address] [place] | | | | | [place], | [place], | | | | | [place] [address] | [place] [address] | | | | | [phone] | [phone] | | | | | | | [...] W | | | | | | [place], | | | | | | [place] [address] | | | | | | [phone] | | | | | | | | +--------+ + + + + | 11/20/ | Implant | Cardiology | Daljit Singletary, | Remote Device | | 2018 | Monitor | | MD Sim [facility] | Interrogation | | | | | [place], | (Primary Dx); | | | | | [place] [address] | Presence of | | | | | [phone] | permanent cardiac | | | | [...]
--- OUTSIDE RECORDS SUMMARY | ~2019-10-27 | XMS | Encounter Summary ---
Demographics + + + | Address | [address] | | | [place] [address] | + + + | Home Phone [...] | 06/17/ | Telephone | [facility] | Silvia, | Lab Order (due for | | 2015 | | CARDIOLOGY [address] | [address] | fasting labs prior | | | | [place], | [place], | to appt) | | | | [place] [address] | [place] [address] | | | | | [phone] | [phone] | | | | | | | [...] | | | | | | [place] [address] | | | | | | [phone] | | | | | | | | +--------+ + + + + | 11/20/ | Implant | Cardiology | Daljit Singletary, | Remote Device | | 2018 | Monitor | | MD [address] | Interrogation | | | | | [place], | (Primary Dx); | | | | | [place] [address] | Presence of | | | | | [phone] | permanent cardiac | | | | [...]
--- OUTSIDE RECORDS SUMMARY | ~2019-10-27 | XMS | Encounter Summary ---
Demographics + + + | Address | [address] | | | [place] [address] | + + + | Home Phone [...] + +------+ + | Care Loss Prevention Guard Name | Role | Phone | [...] | CARDIOLOGY [address] | [address] | card ) | | | | [place], | [place], | | | | | [place] [address] | [place] [address] | | | | | [phone] | [phone] | | | | | | | [...] | | | | | | [place], | | | | | | [place] [address] | | | | | | [phone] | | | | | | | | +--------+ + + + + | 11/20/ | Implant | Cardiology | Daljit Singletary, | Remote Device | | 2018 | Monitor | | [address] [facility] | Interrogation | | | | | [place], | (Primary Dx); | | | | | [place] [address] | Presence of | | | | | [phone] | permanent cardiac | | | | [...]
--- OUTSIDE RECORDS SUMMARY | ~2019-10-27 | XMS | Encounter Summary ---
Demographics + + + | Address | [address] [place] [address] | | | [place] [address] | + + + | Home Phone [...] [place] | | | | | [address] | | + + + + + Care Team Providers + +------+ + | Care It Project Lead Name | Role | Phone | + +------+ + | Darion oHlden DO | PCP | | + +------+ [...] | | | | | TRANSTHORACI | [place], [place] | for Health | | | | | C | [address] | and Healing, | | | | | ECHOCARDIOGR | Phone: | Building 1 | | | | | AM, ADULT | [phone] | [place], [place] | | | | | | Fax: | [address] | | | | | | [phone] | Phone: | | | | | | | [phone] | +--------+--------+ + + + + Reason [...] | | | | | | | [place] [address] | | | | | | | Phone: | | | | | | | [phone] | | | | | | | Fax: | | | | | | | [phone] | | +--------+--------+ + + + + [...] | | Pacemaker | | | | [address] | | | | | | Health and Healing, | | | | | | Building | | | | | | floor [place], [place] | | | | | | [address] | | | | | | [phone] | | | +--------+---------+ + + + [...] per Dr. Drew's note. Farooq Jamil DO Intrusion Analyst Clinical nuclear reactor technician/ Division of Cardiovascular Medicine Yajaira Borges, [place] - 02/09/2011 12:59 PM PDT PACEMAKER HISTORY Primary Care Provider: Darion Holden DO Cardiac Cath Lab Radiology Technologist: Arlette Drew MD Moe Sanchez is a [...] chamber permanent pacemaker implantation on 06/14/09 in [place], Chronic smoker, mild DIDIER, bip olar disorder with anxiety who presents for second opinion regarding his syncopal episodes. Pt. started noticing dizzy spells and episodes of syncope about 3 years ago , pacemaker was put at the recommendation of Cardiac Cath Lab Radiology Technologist Dr. Singletary from [place]. [place]. Pt. states lala bhatti was put>1 [...] Dr. Omero DREW MD CARDIOLOGY - GENERAL [address] Mailcode: [facility], 9th Floor [facility] [address] documented [...] ([address] [facility]) | [facility] | | [facility] [address] [facility] | REGIONAL | | [place] [address] | LABORATORY | + + + + + + + + | Performing | Address | City/State/Zipcode | Phone Number | | Organization | | | | + + + + + | [facility] | [address] | [place] [address] | | | LABORATORY | | | [...] RLB ([address] [facility]) | | | [facility] [place] [address] | | | [place] [address] | | + + + + + + + + | Performing | Address | City/State/Zipcode | Phone Number | | Organization | | | | + + + + + | [facility] | [address] | [place] [address] | | | LABORATORY | | | [...] | | | DEPARTMENT | | | [facility] | | | OF | | | [...] HOSPITAL DEPARTMENT | [address] | [place] [address] | | | PATHOLOGY | [address] [...] DEPT OF | [address] | [place], [place] | | | CARDIOLOGY | [address] | [address] | | + + + + + [...] DEPT OF | [address] | [place], [place] | | | CARDIOLOGY | [address] | [address] | | + + + + + [...] view image for the detailed interpretation from [employer] results. | CARDIOLOGY | + + + + + + + + | Performing | Address | City/State/Zipcode | Phone Number | | Organization | | | | + + + + + | [facility] DEPT OF | [address] | [place], [place] | | | CARDIOLOGY | [address] | [address] | | + + + + + documented in this encounter Visit Diagnoses + + | Diagnosis | + + | Chest pain - Primary Chest pain, unspecified | + + | Bradycardia Other specified cardiac dysrhythmias | + + | Pacemaker Cardiac pacemaker in situ | + + documented in this encounter
--- OUTSIDE RECORDS SUMMARY | ~2019-10-27 | XMS | Encounter Summary ---
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 I provided patient with Dr. Bradley's card so he may contact us for results. Patient's best phone number: [phone] Renetta Lockwood RN ary [place] MD - [...] | | | | | | [place] [address] | | | | | | [phone] | | | | | | | | +--------+ + + + + | 11/20/ | Implant | Cardiology | Daljit Singletary, | Remote Device | 2018 | Monitor | | [facility] | Interrogation | | | | | [place], | (Primary Dx); | | | | | [place] [address] | Presence of | | | | | [phone] | permanent cardiac | | | | [...] | | CALCANEAL ENTHESOPHYTES.Dictated and Signed by: Ragnel Gibson MD Electronically signed: | | 10/01/2014 [...] + | MISCELLANEOUS LAB | | | [phone] | + +---------+ + + | MISCELANIOUS LAB | | | [phone] | + +---------+ + + documented in this encounter Visit Diagnoses + + | Diagnosis | + + | Injury of left foot, initial encounter - Primary | + + documented in this encounter
--- OUTSIDE RECORDS SUMMARY | ~2019-10-27 | XMS | Encounter Summary ---
Demographics + + + | Address | [address] | | | [place] [address] | + + + | Home Phone [...] Providers + +------+ + | Care Bench Hand Machine Name | Role | Phone | [...] + + | 02/01/ | Telephone | [facility] | Silvia, | Other (unable to | | 2013 | | CARDIOLOGY [address] | [address] | take the isosorbide) | | | | [place], | [place], | | | | | [place] [address] | [place] [address] | | | | | [phone] | [phone] | | | | | | | [...] W | | | | | | [place], | | | | | | [place] [address] | | | | | | [phone] | | | | | | | | +--------+ + + + + | 11/20/ | Implant | Cardiology | Daljit Singletary, | Remote Device | | 2018 | Monitor | | [address] [place] | Interrogation | | | | | [place], | (Primary Dx); | | | | | [place] [address] | Presence of | | | | | [phone] | permanent cardiac | | | | [...] of unspecified type of | | vessel, mohegan or graft | + + | Hypertension Unspecified essential hypertension | + + | Hyperlipidemia Other and unspecified hyperlipidemia | + + documented in this encounter"
--- OUTSIDE RECORDS SUMMARY | ~2019-10-27 | XMS | Encounter Summary ---
Demographics + + + | Address | [address] | | | [place] [address] | + + + | Home Phone [...] Providers + +------+ + | Care Administrative Specialist Name | Role | Phone | + +------+ + PCP | Unavailable | + +------+ + Encounter Details +--------+ + + + + | Date | Type | Department | Care Team | Description | +--------+ + + + + | 09/08/ | [facility] | [facility] | Naresh Mckeon | | | 1998 | Encounter | MED CTR SLEEP | MD Chaya [address] | | | | | CENTER [address] | [address] | | | | | [place] | [place] [address] | | | | | [address] | [phone] | | | | | [phone] | | | +--------+ + + + [...] | | | | | | [place] [address] | | | | | | [phone] | | | | | | | | +--------+ + + + + | 11/20/ | Implant | Cardiology | Daljit Singletary, | Remote Device | | 2019 | Monitor | | MD [address] | Interrogation | | | | | [place], | (Primary Dx); | | | | | [place] [address] | Presence of | | | | | [phone] | permanent cardiac | | | | [...]
--- OUTSIDE RECORDS SUMMARY | ~2019-10-27 | XMS | Encounter Summary ---
Demographics + + + | Address | [address] | | | [place] [address] | + + + | Home Phone [...] Providers + +------+ + | Care Manager Strategy Name | Role | Phone | + [...] 2016 | | CARDIOLOGY [address] | FEDERAL LAW CLERK [address] | | | | | [place], | [place], [place] | | | | | [place] [address] | [address] | | | | | [phone] | | | +--------+--------+ + + + [...] | | | | | | [place], | | | | | | [place] [address] | | | | | | [phone] | | | | | | | | +--------+ + + + + | 11/20/ | Implant | Cardiology | Daljit Singletary, | Remote Device | | 2018 | Monitor | | [address] | Interrogation | | | | | [place], | (Primary Dx); | | | | | [place] [address] | Presence of | | | | | [phone] | permanent cardiac | | | | [...]
--- OUTSIDE RECORDS SUMMARY | ~2019-10-27 | XMS | Encounter Summary ---
Demographics + + + | Address | [address] | | | [place] [address] | + + + | Home Phone [...] Providers + +------+ + | Care Art Therapist Name | Role | Phone [...] [address] [place] | | | | | [place], [place] | [address] | | | | | [address] | [place] [address] | | | | | [phone] | [phone] | | | | | | | [...] | | | | | | [place] [address] | | | | | | [phone] | | | | | | | | +--------+ + + + + | 11/20/ | Implant | Cardiology | Daljit Singletary, | Remote Device | | 2018 | Monitor | | [address] | Interrogation | | | | | [place], | (Primary Dx); | | | | | [place] [address] | Presence of | | | | | [phone] | permanent cardiac | | | | [...]
--- OUTSIDE RECORDS SUMMARY | ~2019-10-27 | XMS | Encounter Summary ---
Demographics + + + | Address | [address] | | | [place] [address] | + + + | Home Phone [...] Providers + +------+ + | Care Brick Kiln Burner Name | Role | Phone [...] | on | GASTROENTEROLOGY | [address], [place] | | | | | [address] [place] | [address] [place], [place] | | | | | [address] [place], [place] | [address] | | | | | [address] | | | | | | [phone] | | | +--------+ + + + [...] | | | | | | [place] [address] | | | | | | [phone] | | | | | | | | +--------+ + + + + | 11/20/ | Implant | Cardiology | Daljit Singletary, | Remote Device | 2018 | Monitor | | [facility] | Interrogation | | | | | [place], | (Primary Dx); | | | | | [place] [address] | Presence of | | | | | [phone] | permanent cardiac | | | | [...]
--- OUTSIDE RECORDS SUMMARY | ~2019-10-27 | XMS | Encounter Summary ---
Demographics + + + | Address | [address] | | | [place] [address] | + + + | Home Phone [...] Providers + +------+ + | Care Safety Investigator Name | Role | Phone | + +------+ + PCP | Unavailable | + +------+ + Encounter Details +--------+ + + + + | Date | Type | Department | Care Team | Description | +--------+ + + + + | 12/01/ | Hospital | [facility] | | | | 1997 | Encounter | MED CTR EMERGENCY | | | | | | CENTER [address] | | | | | | [place] | | | | | | [address] | | | | | | [phone] | | | +--------+ + + + [...] | | | | | | [place] [address] | | | | | | [phone] | | | | | | | | +--------+ + + + + | 11/20/ | Implant | Cardiology | Daljit Singletary, | Remote Device | | 2018 | Monitor | | [address] [facility] | Interrogation | | | | | [place], | (Primary Dx); | | | | | [place] [address] | Presence of | | | | | [phone] | permanent cardiac | | | | [...]
--- OUTSIDE RECORDS SUMMARY | ~2019-10-27 | XMS | Encounter Summary ---
Demographics + + + | Address | [address] | | | [place] [address] | + + + | Home Phone [...] + +------+ + | Care Vice President Investor Relations Name | Role | Phone | + +------+ + | Michael Amanda DO | PCP | | + +------+ + Encounter Details +--------+ + + + + | Date | Type | Department | Care Team | Description | +--------+ + + + + | 10/01/ | Hospital | [facility] | Mary Bradshaw | | | 2013 | Encounter | MED CTR [facility] [place] | Guy Larkin MD | | | | | [address] [place] | [address] | | | | | [place], [place] | [place], [place] | | | | | [address] | [address] | | | | | [phone] | | | +--------+ + + + [...] + + + +---------+ + + | West[place]-3 Fatty | CAPS, one capsule by | [...] | | | | | | [place] [address] | | | | | | [phone] | | | | | | | | +--------+ + + + + | 11/20/ | Implant | Cardiology | Daljit Singletary, | Remote Device | | 2019 | Monitor | | [place] [facility] | Interrogation | | | | | [place], | (Primary Dx); | | | | | [place] [address] | Presence of | | | | | [phone] | permanent cardiac | | | | [...] + | MISCELLANEOUS LAB | | | [phone] | + +---------+ + + | MISCELANIOUS LAB | | | [phone] | + +---------+ + + documented in this encounter Visit Diagnoses Not on filedocumented in this encounter"
--- OUTSIDE RECORDS SUMMARY | ~2019-10-27 | XMS | Encounter Summary ---
Demographics + + + | Address | [address] | | | [place] [address] | + + + | Home Phone [...] Providers + +------+ + | Care Sound Engineer Audio Control Name | Role | Phone | [...] 2012 | | CARDIOLOGY [address] | LEATHER GRAINER [address] | | | | | [place], | [place], [place] | | | | | [place] [address] | [address] | | | | | [phone] | | | +--------+ + + + [...] | | | | | | [place] [address] | | | | | | [phone] | | | | | | | | +--------+ + + + + | 11/20/ | Implant | Cardiology | Daljit Singletary, | Remote Device | | 2018 | Monitor | | MD [address] | Interrogation | | | | | [place], | (Primary Dx); | | | | | [place] [address] | Presence of | | | | | [phone] | permanent cardiac | | | | [...]
--- OUTSIDE RECORDS SUMMARY | ~2019-10-27 | XMS | Encounter Summary ---
Demographics + + + | Address | [address] | | | [place] [address] | + + + | Home Phone [...] +------+ + | Care Training And Development Officer Name | Role | Phone | [...] CARDIOLOGY [address] | MD [address] [place] | Interrogation | | | | [place], | [place], | (Primary Dx); | | | | [place] [address] | [place] [address] | Pacemaker; | | | | [phone] | [phone] | Sinoatrial node | | | | [...] | | | | | | [place] [address] | | | | | | [phone] | | | | | | | | +--------+ + + + + | 11/20/ | Implant | Cardiology | Daljit Singletary, | Remote Device | | 2019 | Monitor | | MD [facility] | Interrogation | | | | | [place], | (Primary Dx); | | | | | [place] [address] | Presence of | | | | | [phone] | permanent cardiac | | | | [...] into | | | [facility] for remote interrogation results. Data collected [...]
--- OUTSIDE RECORDS SUMMARY | ~2019-10-27 | XMS | Encounter Summary ---
Demographics + + + | Address | [address] | | | [place] [address] | + + + | Home Phone [...] Providers + +------+ + | Care Epic Stork Specialists Name | Role | Phone | + +------+ + PCP | Unavailable | + +------+ + Encounter Details +--------+ + + + + | Date | Type | Department | Care Team | Description | +--------+ + + + + | 03/08/ | [facility] | [facility] | Emmanuel Daniel MD | | | 2006 | Encounter | MED CTR GENERIC OP | [address] [place] | | | | | CONV DEPT [address] | [address] [place] | | | | | [place], | [address] | | | | | [place] [address] | | | | | | [phone] | | | +--------+ + + + [...] | | | | | | [place] [address] | | | | | | [phone] | | | | | | | | +--------+ + + + + | 11/20/ | Implant | Cardiology | Dajlit Singletary, | Remote Device | | 2019 | Monitor | | MD [address] | Interrogation | | | | | [place], | (Primary Dx); | | | | | [place] [address] | Presence of | | | | | [phone] | permanent cardiac | | | | [...]
--- OUTSIDE RECORDS SUMMARY | ~2019-10-27 | XMS | Encounter Summary ---
Demographics + + + | Address | [address] | | | [place] [address] | + + + | Home Phone [...] Team Providers + +------+ + | Care Punchboard Filling Machine Operator Name | Role | Phone [...] [address] | | | | | [place], | [place], | | | | | [place] [address] | [place] [address] | | | | | [phone] | [phone] | | | | | | | [...] | | | | | | [place] [address] | | | | | | [phone] | | | | | | | | +--------+ + + + + | 11/20/ | Implant | Cardiology | Daljit Singletary, | Remote Device | | 2018 | Monitor | | [address] [place] | Interrogation | | | | | [place], | (Primary Dx); | | | | | [place] [address] | Presence of | | | | | [phone] | permanent cardiac | | | | [...]
--- OUTSIDE RECORDS SUMMARY | ~2019-10-27 | XMS | Encounter Summary ---
Demographics + + + | Address | [address] | | | [place] [address] | + + + | Home Phone [...] Team Providers + +------+ + | Care Forestry Instructor Name | Role | Phone | [...] + | 01/30/ | Telephone | [facility] | Daljit Singletary, | Other | | 2019 | | CARDIOLOGY [address] | MD [address] [place] | | | | | [place], | [place], | | | | | [place] [address] | [place] [address] | | | | | [phone] | [phone] | | | | | | | [...] W | | | | | | [place], | | | | | | [place] [address] | | | | | | [phone] | | | | | | | | +--------+ + + + + | 11/20/ | Implant | Cardiology | Daljit Singletary, | Remote Device | | 2018 | Monitor | | MD [address] [place] [address] | Interrogation | | | | | [place], | (Primary Dx); | | | | | [place] [address] | Presence of | | | | | [phone] | permanent cardiac | | | | [...] 05/02/2019, Expires: | | | | | [place] coronary | 01/30/2020 | | | | | artery of [place] | | | | | | heart [...] 05/02/2019, Expires: | | | | | [place] coronary | 01/31/2020 | | | | | artery of [place] | | | | | | heart without angina | | | | | | pectoris | | | | | | Hyperlipidemia, | | | | | | mixed | | + +------+--------+ + + documented as of this encounter Visit Diagnoses + + | Diagnosis | + + | Coronary artery disease involving [place] coronary artery of [place] heart without | | angina pectoris - Primary | + + | Hyperlipidemia, mixed Mixed hyperlipidemia | + + documented in this encounter"
--- OUTSIDE RECORDS SUMMARY | ~2019-10-27 | XMS | Encounter Summary ---
Demographics + + + | Address | [address] | | | [place] [address] | + + + | Home Phone [...] Providers + +------+ + | Care Impregnating Machine Operator Name | Role | Phone [...] 2019 | | GASTROENTEROLOGY | [address], [place] | Recommendations | | | | [address] [place] | [address] [place], [place] | | | | | [address] [place], [place] | [address] | | | | | [address] | | | | | | [phone] | | | +--------+ + + + [...] | | | | | | [place] [address] | | | | | | [phone] | | | | | | | | +--------+ + + + + | 11/20/ | Implant | Cardiology | Daljit Singletary, | Remote Device | | 2018 | Monitor | | [address] | Interrogation | | | | | [place], | (Primary Dx); | | | | | [place] [address] | Presence of | | | | | [phone] | permanent cardiac | | | | [...]
--- OUTSIDE RECORDS SUMMARY | ~2019-10-27 | XMS | Encounter Summary ---
Demographics + + + | Address | [address] | | | [place] [address] | + + + | Home Phone [...] + +------+ + | Care Associate Financial Planner Name | Role | Phone | [...] 2019 | | GASTROENTEROLOGY | [address] [place], [place] | | | | | [address] [place] | [address] [place], [place] | | | | | 210 [place], [place] | [address] | | | | | [address] | | | | | | [phone] | | | +--------+ + + + [...] | | | | | | [place] [address] | | | | | | [phone] | | | | | | | | +--------+ + + + + | 11/20/ | Implant | Cardiology | Daljit Singletary, | Remote Device | | 2018 | Monitor | | MD [address] [place] [address] | Interrogation | | | | | [address] [place], | (Primary Dx); | | | | | [place] [address] | Presence of | | | | | [phone] | permanent cardiac | | | | [...]
--- OUTSIDE RECORDS SUMMARY | ~2019-10-27 | XMS | Encounter Summary ---
Demographics + + + | Address | [address] | | | [place] [address] | + + + | Home Phone [...] Providers + +------+ + | Care Vehicle Monitor Technician Name | Role | Phone | [...] Refill | | 2013 | | MEDICINE CALUMET | DO [address] | | | | | [address] | [place] | | | | | [place] | [address] | | | | | [address] | | | | | | [phone] | | | +--------+--------+ + + + [...] W | | | | | | [place], | | | | | | [place] [address] | | | | | | [phone] | | | | | | | | +--------+ + + + + | 11/20/ | Implant | Cardiology | Daljit Singletary, | Remote Device | | 2018 | Monitor | | [facility] | Interrogation | | | | | [place], | (Primary Dx); | | | | | [place] [address] | Presence of | | | | | [phone] | permanent cardiac | | | | [...]
--- OUTSIDE RECORDS SUMMARY | ~2019-10-27 | XMS | Encounter Summary ---
Demographics + + + | Address | [address] | | | [place] [address] | + + + | Home Phone [...] Providers + +------+ + | Care Managing Supervisor Name | Role | Phone | [...] Refill | | 2013 | | MEDICINE CARRIER | DO [address] | | | | | [address] | [place] | | | | | [place] | [address] | | | | | [address] | | | | | | [phone] | | | +--------+--------+ + + + [...] W | | | | | | [place], | | | | | | [place] [address] | | | | | | [phone] | | | | | | | | +--------+ + + + + | 11/20/ | Implant | Cardiology | Daljit Singletary, | Remote Device | | 2018 | Monitor | | [address] [facility] | Interrogation | | | | | [place], | (Primary Dx); | | | | | [place] [address] | Presence of | | | | | [phone] | permanent cardiac | | | | [...]
--- OUTSIDE RECORDS SUMMARY | ~2019-10-27 | XMS | Encounter Summary ---
Demographics + + + | Address | [address] | | | [place] [address] | + + + | Home Phone [...] Author | [facility] | | | [...] Providers + +------+ + | Care Embedded Firmware Developer Name | Role | Phone | [...] [address] | | | | | | [place], [place] | (Fax) | | | | | [address] | | | | | | [phone] | | | +--------+ + + + [...] | | | | | | [place] [address] | | | | | | [phone] | | | | | | | | +--------+ + + + + | 11/20/ | Implant | Cardiology | Daljit Singletary, | Remote Device | | 2018 | Monitor | | [address] [facility] | Interrogation | | | | | [place], | (Primary Dx); | | | | | [place] [address] | Presence of | | | | | [phone] | permanent cardiac | | | | [...]
--- OUTSIDE RECORDS SUMMARY | ~2019-10-27 | XMS | Encounter Summary ---
Demographics + + + | Address | [address] | | | [place] [address] | + + + | Home Phone [...] Team Providers + +------+ + | Care Tubing Mill Setter Name | Role | Phone | [...] W | DISCLOSURE) | | | | [place], | [place], | | | | | [place] [address] | [place] [address] | | | | | [phone] | [phone] | | | | | | | [...] | | | | | | [place], | | | | | | [place] [address] | | | | | | [phone] | | | | | | | | +--------+ + + + + | 11/20/ | Implant | Cardiology | Daljit Singletary, | Remote Device | | 2018 | Monitor | | [facility] | Interrogation | | | | | [place], | (Primary Dx); | | | | | [place] [address] | Presence of | | | | | [phone] | permanent cardiac | | | | [...]
--- OUTSIDE RECORDS SUMMARY | ~2019-10-27 | XMS | Encounter Summary ---
Demographics + + + | Address | [address] [place] [address] | | | [place] [address] | + + + | Home Phone [...] [place] | | | | | [address] | | + + + + + Care Team Providers + +------+ + | Care Marketing Automation Analyst Name | Role | Phone | [...] | | | | | [place] | [facility] | | | | | | [place], [place] | [place], [place] | | | | | | [address] | [address] | | | | | | Phone: | Phone: | | | | | | [phone] | [phone] | | | | | | Fax: | Fax: | | | | | | [phone] | [phone] | +--------+--------+ + + + + Encounter Details +--------+---------+ + + + | Date | Type | Department | Care Team | Description | +--------+---------+ + + + | 09/28/ | Office | [facility] | Bridgette Rios, | Chronic diarrhea | | 2019 | Visit | [facility] | [address] | (Primary Dx); | | | | [address] | [place], [place] | Abdominal cramping; | | | | Mailcode: [place] | [address] | Unintentional weight | | | | for Health and | [phone] | loss | | | | [facility] | | | | | | [place], [place] | | | | | | [address] | | | | | | [phone] | | | +--------+---------+ + + + [...] some lab orders to [facility] 2. grinder set up operator gear tool the nortryptiline and take 1 tablet each [...] different fr om the original. [facility]enterology Clinic [facility] ~ Initial [...] inflammatory bowel disease. CT scan done through [facility] November show ed mild [...] of Present Illness: Here with his from [place] for second opinion regarding severe abdominal cramps, isreal rrhea and weight loss following a GI illness contracted during a trip to [facility]. He reports that 2 years ago he was traveling in [facility] and he had some suspicious seafood. He develo ps profound bloody diarrhea with severe abdominal pain. He was hospitalized in [facility] and w as treated with IV [...] Plan and Recommendations: 1. [facility] in [place] for stool studies as outlined above 2. If negative and symptoms persist, recommend capsule endoscopy (this could be completed b y local solution manager or he could return to [place] for this test) 3. Nortryptiline 25mg q HS with instruction to titrate to 50mg q HS after 2 weeks if tolera kevin Follow-Up: with local solution manager Counseling Time: I spent a total [...] and goals for treatment. Bridgette Rios MD Medical Physicist Gastroenterology documented in this e ncounter Plan [...]
--- OUTSIDE RECORDS SUMMARY | ~2019-10-27 | XMS | Encounter Summary ---
Demographics + + + | Address | [address] | | | [place] [address] | + + + | Home Phone [...] Providers + +------+ + | Care Box Blank Machine Operator Helper Name | Role | [...] | SR | | | | | [phone] | | | +--------+ + + + [...] | | | | | | [place] [address] | | | | | | [phone] | | | | | | | | +--------+ + + + + | 11/20/ | Implant | Cardiology | Daljit Singletary, | Remote Device | | 2019 | Monitor | | [place] [facility] | Interrogation | | | | | [place], | (Primary Dx); | | | | | [place] [address] | Presence of | | | | | [phone] | permanent cardiac | | | | [...]
--- OUTSIDE RECORDS SUMMARY | ~2019-10-27 | XMS | Encounter Summary ---
Demographics + + + | Address | [address] | | | [place] [address] | + + + | Home Phone [...] +------+ + | Care Grinding Machine Operator Portable Name | Role | Phone | [...] + | 01/30/ | Telephone | [facility] | Daljit Singletary, | Other | | 2019 | | CARDIOLOGY [address] | MD [address] [place] | | | | | [place], | [place], | | | | | [place] [address] | [place] [address] | | | | | [phone] | [phone] | | | | | | | [...] W | | | | | | [place], | | | | | | [place] [address] | | | | | | [phone] | | | | | | | | +--------+ + + + + | 11/20/ | Implant | Cardiology | Daljit Singletary, | Remote Device | | 2018 | Monitor | | MD [address] [place] [address] | Interrogation | | | | | [place], | (Primary Dx); | | | | | [place] [address] | Presence of | | | | | [phone] | permanent cardiac | | | | [...] 05/02/2019, Expires: | | | | | [place] coronary | 01/30/2020 | | | | | artery of [place] | | | | | | heart [...] 05/02/2019, Expires: | | | | | [place] coronary | 01/31/2020 | | | | | artery of [place] | | | | | | heart without angina | | | | | | pectoris | | | | | | Hyperlipidemia, | | | | | | mixed | | + +------+--------+ + + documented as of this encounter Visit Diagnoses + + | Diagnosis | + + | Coronary artery disease involving [place] coronary artery of [place] heart without | | angina pectoris - Primary | + + | Hyperlipidemia, mixed Mixed hyperlipidemia | + + documented in this encounter"
--- OUTSIDE RECORDS SUMMARY | ~2019-10-27 | XMS | Encounter Summary ---
Demographics + + + | Address | [address] | | | [place] [address] | + + + | Home Phone [...] Providers + +------+ + | Care Balance Staff Staker Name | Role | Phone | + [...] | Aneurysmal | Silvia, | [address] | | | | | dilatation | PARISA Solis | [place], | | | | | (HCC) | [address] | [place] | | | | | Procedures | [place] | [address] | | | | | ECHO | [place], | Phone: | | | | | Complete | [place] | [phone] | | | | | | [address] | Fax: | | | | | | Phone: | [phone] | | | | | | [phone] | | | | | | | Fax: | | | | | | | [phone] | | +--------+--------+ + + + + Encounter Details +--------+ + + + + | Date | Type | Department | Care Team | Description | +--------+ + + + + | 11/16/ | Orders Only | [facility] [place] | [place], | Aneurysmal | | 2017 | | CARDIOLOGY [address] | PARISA Solis [address] | dilatation (HCC) | | | | [place], | [place], | (Primary Dx) | | | | [place] [address] | [place] [address] | | | | | [phone] | [phone] | | | | | | | [...] W | | | | | | [place], | | | | | | [place] [address] | | | | | | [phone] | | | | | | | | +--------+ + + + + | 11/20/ | Implant | Cardiology | Sydni Singletary, | Remote Device | | 2018 | Monitor | | [address] | Interrogation | | | | | [place], | (Primary Dx); | | | | | [place] [address] | Presence of | | | | | [phone] | permanent cardiac | | | | [...] Room Number SARAH Patient | | | [id number] Date of Study 11/16/2017 Number | | | Visit Number [id number] | | | Referring Physician GURJIT TROY Number | | | ELIZABETHANGELIA SOLIS Date | | | of 1960 Back Filler Operator ROMAINE | | | MARISSA TIPTON Age 57 year(s) Interpreting | | | GURJIT TROY | | | Administrative Specialist SYDNI SINGLETARY, | | | | | | Gender Male Nurse | | | Stress Coding Compliance Specialist Procedure Type of | | | [...] | | | EF | | | Zdzxahqmr62% Left Ventricle Diastolic Dimension: 5.12 cm | [...] Volume: 46.33 ml | | | EF Oqauefkgv10% | | | | | | Left [...] BARRY Room Number SARAH | | Patient [id number] Date of Study 11/16/2017 Number Visit Number | | [id number] Referring Physician GURJIT TROY | | Number NORMA MCLAUGHLINN Date of | | 1960 Back Filler Operator ROMAINE TIPTON RDCS Age 57 year(s) | | Interpreting GURJIT TROY Administrative Specialist | | SYDNI SINGLETARY MD | | [...] LA Volume: 46.33 ml | | EF Eaeerojvz15% Left Ventricle Diastolic Dimension: 5.12 cm Systolic [...] LA Volume: 46.33 ml | | EF Mbievutkf12% | | | | Left Ventricle | [...]
--- OUTSIDE RECORDS SUMMARY | ~2019-10-27 | XMS | Encounter Summary ---
Demographics + + + | Address | [address] | | | [place] [address] | + + + | Home Phone [...] Providers + +------+ + | Care Auto Collision Repair Instructor Name | Role | Phone [...] + + | 01/03/ | Telephone | [facility] | Emmanuel Daniel MD | Results, Pathology | | 2018 | | GASTROENTEROLOGY | [address] [place], [place] | (egd,colon) | | | | [address] [place] | [address] [place], [place] | | | | | [address] [place], [place] | [address] | | | | | [address] | | | | | | [phone] | | | +--------+ + + + [...] | | | | | [place], | | | | | | [place] [address] | | | | | | [phone] | | | | | | | | +--------+ + + + + | 11/20/ | Implant | Cardiology | Daljit Singletary, | Remote Device | | 2018 | Monitor | | MD [address] | Interrogation | | | | | [place], | (Primary Dx); | | | | | [place] [address] | Presence of | | | | | [phone] | permanent cardiac | | | | [...]
--- OUTSIDE RECORDS SUMMARY | ~2019-10-27 | XMS | Encounter Summary ---
Demographics + + + | Address | [address] | | | [place] [address] | + + + | Home Phone [...] Team Providers + +------+ + | Care Neurology Professor Name | Role | Phone | + +------+ + | Kirk French MD | PCP | | + +------+ + Encounter Details +--------+ + + + + | Date | Type | Department | Care Team | Description | +--------+ + + + + | 01/25/ | Emergency | [facility] | Donald Callahan, | Strain of lumbar | | 2016 | | MEDICAL CENTER | Russ, DO [address] | paraspinal muscle, | | | | EMERGENCY CENTER | [address] | initial encounter; | | | | [address] | [place], [place] | Left hip pain | | | | [place], [place] | [address] | | | | | [address] | | | | | | [phone] | | | +--------+ + + + [...] + + + +---------+ + + | Callaway-3 Fatty | CAPS, one capsule by | [...] | | | | | | [place] [address] | | | | | | [phone] | | | | | | | | +--------+ + + + + | 11/20/ | Implant | Cardiology | Daljit Singletary, | Remote Device | | 2019 | Monitor | | [place] [address] [facility] | Interrogation | | | | | [place], | (Primary Dx); | | | | | [place] [address] | Presence of | | | | | [phone] | permanent cardiac | | | | [...] Conversion - 07/06/2019 12:12 AM PDT PINA [id number] years MaleXR | | LUMBAR SPINE LIMITED [...]
--- OUTSIDE RECORDS SUMMARY | ~2019-10-27 | XMS | Encounter Summary ---
Demographics + + + | Address | [address] | | | [place] [address] | + + + | Home Phone [...] Providers + +------+ + | Care Engineering Job Titles Name | Role | Phone [...] 2019 | | GASTROENTEROLOGY | [address], [place] | | | | | [address] [place] | [address] [place], [place] | | | | | [address] [place], [place] | [address] | | | | | [address] | | | | | | [phone] | | | +--------+ + + + [...] | | | | | | [place] [address] | | | | | | [phone] | | | | | | | | +--------+ + + + + | 11/20/ | Implant | Cardiology | Daljit Singletary, | Remote Device | | 2018 | Monitor | | MD [address] [place] [address] | Interrogation | | | | | [address] [place], | (Primary Dx); | | | | | [place] [id number] | Presence of | | | | | [phone] | permanent cardiac | | | | [...]
--- OUTSIDE RECORDS SUMMARY | ~2019-10-27 | XMS | Encounter Summary ---
Demographics + + + | Address | [address] | | | [place] [address] | + + + | Home Phone [...] Providers + +------+ + | Care Legal Contracts Specialist Name | Role | Phone | [...] unspecified | [address] | [address] | | | | | type | [address] | [place], | | | | | Procedures | [place], | [place] | | | | | [place] | [place] [address] | [address] | | | | | Stress Test | Phone: | Phone: | | | | | (Vasodilator | [phone] | [phone] | | | | | ) CHG | Fax: | Fax: | | | | | MYOCARDIAL | [phone] | [phone] | | | | | SPECT | [...] | type | [address] | [address] | | | | | Procedures | [place] | [place], | | | | | FUP | [place] | [place] [address] | | | | | | [address] | Phone: | | | | | | Phone: | [phone] | | | | | | [phone] | Fax: | | | | | | Fax: | [phone] | | | | | | [phone] | | +--------+ + + + + + Encounter Details +--------+---------+ + + + | Date | Type | Department | Care Team | Description | +--------+---------+ + + + | 06/27/ | Office | [facility] | Sydni Singletary, | Pacemaker | | 2017 | Visit | CARDIOLOGY [address] | [address] [facility] | reprogramming/check | | | | [place], | [place], | DO NOT DELETE | | | | [place] [address] | [place] [address] | (Primary Dx); Chest | | | | [phone] | [phone] | pain, unspecified | | | | [...] that time, patient has been seen at [place] emergency department on 018 for chest pain [...] by mouth every evening 90 tablet 0 [facility] Natural [...] DOSE, CALL 911 100 tablet 3 [place]-3 Fatty Acids (SALMON OIL-1000 PO) CAPS, one [...] to go back in 3 days to [place] for an attempt of ablation under general [...] PVCs. 2. Non-critical Coronary artery disease involving [place] coronary artery of [place] heart [facility] angina pectoris: A. Normal exercise sestamibi stress test on 05/25/09. LVEF by [facility] ed SPECT was 53%. B. [...] cannot completely be ruled out . [facility] 12/25/13, shows non critical coronary artery [...] He is in a class I of [place] [employer] functiona l class. There is [...] reviewed and edited this note. Allyson Curtis, Wringer Operator 06/27/2018 I, Sydni Singletary MD, personally performed the services described in this documentation, as scribed in my presence and it is both accurate and complete. Allyson Curtis, Med Ass t 06/27/2018 14:15 Electronically signed by: Sydni Singletary MD [facility] 06/27/2018 Portions of this chart may have been created with [email or web address] voice recognition software. Occasi onal wrong-word or [...] | | | | | | [place] [address] | | | | | | [phone] | | | | | | | | +--------+ + + + + | 11/20/ | Implant | Cardiology | Sydni Singletary, | Remote Device | | 2019 | Monitor | | MD [address] [facility] | Interrogation | | | | | [place], | (Primary Dx); | | | | | [place] [address] | Presence of | | | | | [phone] | permanent cardiac | | | | [...] SYDNI | | | | | | ([id number]) on 06/27/2018 | | | | | [...]
--- OUTSIDE RECORDS SUMMARY | ~2019-10-27 | XMS | Encounter Summary ---
Demographics + + + | Address | [address] | | | [place] [address] | + + + | Home Phone [...] Providers + +------+ + | Care Senior Market Research Analyst Name | Role | Phone | + +------+ + PCP | Unavailable | + +------+ + Encounter Details +--------+ + + + + | Date | Type | Department | Care Team | Description | +--------+ + + + + | 02/21/ | [facility] | [facility] | Cristy Braun | | | 2008 | Encounter | MED CTR EMERGENCY | Ronald Adrian MD [address] | | | | | [place] [address] | [facility] | | | | | [place] | [place] [address] | | | | | [address] | [phone] | | | | | [phone] | | | +--------+ + + + [...] | | | | | | [place] [address] | | | | | | [phone] | | | | | | | | +--------+ + + + + | 11/20/ | Implant | Cardiology | Daljit Singletary, | Remote Device | | 2018 | Monitor | | MD [address] [place] | Interrogation | | | | | [place], | (Primary Dx); | | | | | [place] [address] | Presence of | | | | | [phone] | permanent cardiac | | | | [...]
--- OUTSIDE RECORDS SUMMARY | ~2019-10-27 | XMS | Encounter Summary ---
Demographics + + + | Address | [address] | | | [place] [address] | + + + | Home Phone [...] Providers + +------+ + | Care Aerospace Project Engineer Name | Role | Phone | + +------+ + PCP | Unavailable | + +------+ + Encounter Details +--------+ + + + + | Date | Type | Department | Care Team | Description | +--------+ + + + + | 05/13/ | Hospital | [facility] | | | | 2007 | Encounter | MED CTR EMERGENCY | | | | | | [place] [address] | | | | | | [place] | | | | | | [address] | | | | | | [phone] | | | +--------+ + + + [...] | | | | | | [place] [address] | | | | | | [phone] | | | | | | | | +--------+ + + + + | 11/20/ | Implant | Cardiology | Daljit Singletary, | Remote Device | | 2018 | Monitor | | [address] [facility] | Interrogation | | | | | [place], | (Primary Dx); | | | | | [place] [address] | Presence of | | | | | [phone] | permanent cardiac | | | | [...]
--- OUTSIDE RECORDS SUMMARY | ~2019-10-27 | XMS | Encounter Summary ---
Demographics + + + | Address | [address] | | | [place] [address] | + + + | Home Phone [...] + + | 10/19/ | Hospital | [facility] | | | | 1992 | Encounter | MED CTR EMERGENCY | | | | | | CENTER [address] | | | | | | [place] | | | | | | [address] | | | | | | [phone] | | | +--------+ + + + [...] | | | | | | [place] [address] | | | | | | [phone] | | | | | | | | +--------+ + + + + | 11/20/ | Implant | Cardiology | Daljit Singletary, | Remote Device | | 2018 | Monitor | | [address] [facility] | Interrogation | | | | | [place], | (Primary Dx); | | | | | [place] [address] | Presence of | | | | | [phone] | permanent cardiac | | | | [...]
--- OUTSIDE RECORDS SUMMARY | ~2019-10-27 | XMS | Encounter Summary ---
Demographics + + + | Address | [address] | | | [place] [address] | + + + | Home Phone [...] Team Providers + +------+ + | Care Quotation Checker Name | Role | Phone | [...] | Office | [facility] | [place], | SINUS BRADYCARDIA | | 2013 | Visit | CARDIOLOGY [address] | PARISA [address] | (Primary Dx); | | | | [place], | [place], | Syncope; Symptomatic | | | | [place] [address] | [place] [address] | PVCs; Pacemaker - | | | | [phone] | [phone] | Medtronic - [id number] | | | [...] Sanchez Date: March 07, 2014 : 1960 Sub Acute Care Nurse: Kailey Pruitt RN Device Overhauler Bus Truck:Medtronic Sense (mV) Impedance (?) Capture (V) Capture (ms) A Lead >5.60 402 1.500 0.09 RV Lead >31.36 522 2.00 0.09 LV Lead Battery Impedance (?): 528 Battery Voltage (V): 2.79 ME Interval (ms): 147 AR Interval (ms): 217 VA Conduction: Mode Switch Events: 0 % of time: 0 -WAITER/WAITRESS TAKE OUT: <0.1% AP-WAITER/WAITRESS TAKE OUT: 0.1% -VS: 23.8% AP-VS: 76.1% WAITER/WAITRESS TAKE OUT: Magnetic Rate: 85 LINDA: 65 LEAH: Current [...] Pruitt RN 03/07/2014 12:00 Janeen Mccollum AR SOCIAL MEDIA SENIOR ASSOCIATE - 03/07/2014 11:07 AM PDT PATIENT [...] headaches. He paulino d been seen at [facility] a couple times with chest pain [...] needed for Chest pain. 25 tablet 12 [place]-3 Fatty Acids (SALMON OIL-1000 PO) CAPS, [...] Sanchez Date: March 07, 2014 : 1960 Sub Acute Care Nurse: Kailey Pruitt RN Device Overhauler Bus Truck:[employer]re[employer] Sense (mV) Impedance (?) Capture (V) Capture (ms) A Lead >5.60 402 1.500 0.09 RV Lead >31.36 522 2.00 0.09 LV Lead Battery Impedance (?): 528 Battery Voltage (V): 2.79 ME Interval (ms): 147 AR Interval (ms): 217 VA Conduction: Mode Switch Events: 0 % of time: 0 -WAITER/WAITRESS TAKE OUT: <0.1% AP-WAITER/WAITRESS TAKE OUT: 0.1% -VS: 23.8% AP-VS: 76.1% WAITER/WAITRESS TAKE OUT: Magnetic Rate: 85 LINDA: 65 LEAH: Current [...] out. [facility] 12/25/13, shows noncritical coronary artery disease, [...] pain. He is in class II of [place] [employer] functional class . There are [...] to go back in 3 days to [place] for an attempt of ablation under general [...] palpitations.. He is in class II of [place] 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 There are no [...] made to ensure accuracy; however, inadvertent computerized flour blender helper errors may be pre sent. Electronically [...] | | | | | | [place], | | | | | | [place] [address] | | | | | | [phone] | | | | | | | | +--------+ + + + + | 11/20/ | Implant | Cardiology | Daljit Singletary, | Remote Device | | 2019 | Monitor | | MD [address] | Interrogation | | | | | [place], | (Primary Dx); | | | | | [place] [address] | Presence of | | | | | [phone] | permanent cardiac | | | | [...] 07, 2014 : | | | 1960 Sub Acute Care Nurse: Kailey Pruitt RN Device | | | Overhauler Bus Truck:[employer]reps Sense (mV) Impedance (?) Capture (V) | | | Capture (ms) A Lead >5.60 402 1.500 0.09 RV Lead >31.36 522 2.00 | | | 0.09 LV Lead Battery Impedance (?): 528 Battery Voltage (V): | | | 2.79 ME Interval (ms): 147 AR Interval (ms): 217 VA Conduction: | | | Mode Switch Events: 0 % of time: 0 -WAITER/WAITRESS TAKE OUT: <0.1% AP-WAITER/WAITRESS TAKE OUT: 0.1% -VS: | | | 23.8% AP-VS: 76.1% WAITER/WAITRESS TAKE OUT: Magnetic Rate: 85 LINDA: 65 LEAH: Current [...] | | Date: March 07, 2014DOB: 1960 Sub Acute Care Nurse: Kailey Pruitt RN Device | | Overhauler Bus Truck:[employer]reps Sense (mV) Impedance (?) Capture (V) Capture (ms) A Lead >5.60 | | 402 1.500 0.09 RV Lead >31.36 522 2.00 0.09 LV Lead Battery Impedance (?): 528 | | Battery Voltage (V): 2.79 ME Interval (ms): 147 AR Interval (ms): 217 VA Conduction: | | Mode Switch Events: 0 % of time: 0 -WAITER/WAITRESS TAKE OUT: <0.1% AP-WAITER/WAITRESS TAKE OUT: 0.1% -VS: 23.8% AP-VS: 76.1% | | WAITER/WAITRESS TAKE OUT: Magnetic Rate: 85 LINDA: 65 LEAH: Current [...]
--- OUTSIDE RECORDS SUMMARY | ~2019-10-27 | XMS | Encounter Summary ---
Demographics + + + | Address | [address] | | | [place] [address] | + + + | Home Phone [...] Providers + +------+ + | Care Single Pass Soil Stabilizer Operator Name | Role | [...] [address] | | | | | [place], | [place], | | | | | [place] [address] | [place] [address] | | | | | [phone] | [phone] | | | | | | | [...] | | | | | | [place] [address] | | | | | | [phone] | | | | | | | | +--------+ + + + + | 11/20/ | Implant | Cardiology | Daljit Singletary, | Remote Device | | 2018 | Monitor | | [address] | Interrogation | | | | | [place], | (Primary Dx); | | | | | [place] [address] | Presence of | | | | | [phone] | permanent cardiac | | | | [...]
--- OUTSIDE RECORDS SUMMARY | ~2019-10-27 | XMS | Encounter Summary ---
Demographics + + + | Address | [address] | | | [place] [address] | + + + | Home Phone [...] Providers + +------+ + | Care Tool Liaison Name | Role | Phone | [...] | Aneurysmal | [place], | [address] | | | | | dilatation | PARISA Solis | [place], | | | | | ([facility]) | [address] | [place] | | | | | Procedures | [address] | [address] | | | | | ECHO | [place], | Phone: | | | | | Complete | [place] | [phone] | | | | | | [address] | Fax: | | | | | | Phone: | [phone] | | | | | | [phone] | | | | | | | Fax: | | | | | | | [phone] | | +--------+--------+ + + + + [...] | | | | | Aneurysmal | [place], | [address] | | | | | dilatation | PARISA Solis | [place], | | | | | ([facility]) | [address] | [place] | | | | | Procedures | [place] | [address] | | | | | ECHO | [place], | Phone: | | | | | Complete | [place] | [phone] | | | | | | [address] | Fax: | | | | | | Phone: | [phone] | | | | | | [phone] | | | | | | | Fax: | | | | | | | [phone] | | +--------+--------+ + + + + Encounter Details +--------+ + + + + | Date | Type | Department | Care Team | Description | +--------+ + + + + | 11/16/ | Hospital | [facility] | Silvia, | Aneurysmal | | 2017 | Encounter | MED CTR ECHO [address] | Janeen, ADDICTION THERAPIST [address] | dilatation (HCC) | | | | [place] | [place], | | | | | [place], [place] [address] | [place] [address] | | | | | [phone] | [phone] | | | | | | | [...] + + + +---------+ + + | [place]-3 Fatty | CAPS, one capsule by | [...] | | | | | | [place] [address] | | | | | | [phone] | | | | | | | | +--------+ + + + + | 11/20/ | Implant | Cardiology | Sydni Singletary, | Remote Device | | 2019 | Monitor | | MD [address] [facility] | Interrogation | | | | | [place], | (Primary Dx); | | | | | [place] [address] | Presence of | | | | | [phone] | permanent cardiac | | | | [...] Patient Name VICTOR HUGO | | | SMITHWICK Room Number SARAH Patient | | | [id number] Date of Study 11/16/2017 Number | | | Visit Number [id number] | | | Referring Physician GURJIT TROY Number | | | NORMA SOLIS Date | | | of 1960 [address] ROMAINE | | | MARISSA TIPTON Age 57 year(s) Interpreting | | | GURJIT TROY | | | Tow Truck Dispatcher SYDNI SINGLETARY, | | | MD | | | Gender Male Nurse | | | Stress Talend Etl Developer Procedure Type of | | | Study [...] | | | EF | | | Oivottild51% Left Ventricle Diastolic Dimension: 5.12 cm | [...] Volume: 46.33 ml | | | EF Wagvxjneb39% | | | | | | Left [...] Rad Results In - 11/16/2017 1:48 PM [facility] Transthoracic Echocardiography Report | | (TTE) Demographics Patient Name VICTOR HUGO BARRY Room Number SARAH | | Patient [id number] Date of Study 11/16/2017 Number Visit Number | | [id number] Referring Physician GURJIT TROY | | Number NORMA SOLIS Date of | | 1960 [address] ROMAINE TIPTON [facility] Age 57 year(s) | | Interpreting GURJIT TROY Tow Truck Dispatcher | | SYDNI SINGLETARY MD | | [...] LA Volume: 46.33 ml | | EF Vfhfdurwz33% Left Ventricle Diastolic Dimension: 5.12 cm Systolic [...] LA Volume: 46.33 ml | | EF Ylxwljvsq12% | | | | Left Ventricle | [...]
--- OUTSIDE RECORDS SUMMARY | ~2019-10-27 | XMS | Encounter Summary ---
Demographics + + + | Address | [address] | | | [place] [address] | + + + | Home Phone [...] Providers + +------+ + | Care Cleaner Window Name | Role | Phone | + [...] loss | [address] | [address], | | | | | Anxiety | [address] | [address] | | | | | disorder, | [address] | [place], | | | | | unspecified | [place], [place] | [place] [address] | | | | | Chronic | [address] | Phone: | | | | | pain | Phone: | [phone] | | | | | syndrome | [phone] | Fax: | | | | | Procedures | Fax: | [phone] | | | | | office visit | [phone] | | +--------+--------+ + + + + Encounter Details +--------+---------+ + + + | Date | Type | Department | Care Team | Description | +--------+---------+ + + + | 12/26/ | Office | [facility] | Emmanuel Daniel MD | Functional diarrhea | | 2019 | Visit | GASTROENTEROLOGY | [address], [place] | (Primary Dx); | | | | [address] | [address] [place], [place] | Gastrointestinal | | | | [address] [place], [place] | [address] | hemorrhage | | | | [address] | | associated with | | | | [phone] | | anorectal source; | | | [...] | | | | | | [place] [address] | | | | | | [phone] | | | | | | | | +--------+ + + + + | 11/20/ | Implant | Cardiology | Daljit Singletary, | Remote Device | | 2019 | Monitor | | [address] [facility] | Interrogation | | | | | [place], | (Primary Dx); | | | | | [place] [address] | Presence of | | | | | [phone] | permanent cardiac | | | | [...]
--- OUTSIDE RECORDS SUMMARY | ~2019-10-27 | XMS | Encounter Summary ---
Demographics + + + | Address | [address] | | | [place] [address] | + + + | Home Phone [...] Providers + +------+ + | Care Executive Administrator Name | Role | Phone | + +------+ + | Michael Amanda DO | PCP | | + +------+ + Encounter Details +--------+ + + + + | Date | Type | Department | Care Team | Description | +--------+ + + + + | 01/31/ | Hospital | [facility] | Adrian Gutierrez MD | | | 2012 | Encounter | HEART MED CTR | [address] | | | | | EMERGENCY CENTER | [place], [place] | | | | | [address] | [address] | | | | | [place] | [phone] | | | | | [address] | | | | | | [phone] | | | +--------+ + + + [...] + + + +---------+ + + | [place]-3 Fatty | CAPS, one capsule by | [...] | | | | | | [place] [address] | | | | | | [phone] | | | | | | | | +--------+ + + + + | 11/20/ | Implant | Cardiology | Daljit Singletary, | Remote Device | | 2019 | Monitor | | [address] [facility] | Interrogation | | | | | [address] [place], | (Primary Dx); | | | | | [place] [address] | Presence of | | | | | [phone] | permanent cardiac | | | | [...] + + + | Exam Performed Location: [facility] TWO-VIEW | MISCELANIOUS | | CHEST CLINICAL [...] | an acute cardiopulmonary process. S: SQ ([id number]) Signed by: | | | JAYNE SPEAR MD | | + + + + + | Procedure Note | + + | Kevin, Rad Conversion - 09/13/2013 10:25 PM PDT Exam Performed [facility]ST[facility]ICAL INFORMATION:Shortness of | | breath.COMPARISON:None.FINDINGS:There is a left subclavian dual lead cardiac pacer. The | | heart sizeand mediastinal contours are normal. The pulmonary vasculature isnormal. No | | focal airspace opacities, pleural effusions, orpneumothorax. Cervical fusion hardware | | is noted. No acute osseousfindings.IMPRESSION:No evidence of an acute cardiopulmonary | | process.S: SQ ([id number]) Signed by: JAYNE SPEAR MD | |COMPARISON: [...] | | | | | |S: SQ ([id number]) Signed by: JAYNE SPEAR MD | + + + +---------+ + + | Performing | Address | City/State/Zipcode | Phone Number | | Organization | | | | + +---------+ + + | [facility]LL[facility]OUS LAB | | | [phone] | + +---------+ + + | MISCELANIOUS LAB | | | [phone] | + +---------+ + + Troponin I [...] + | [facility] | [address] | [place] [address] | | | [facility] | [...] + + | [facility] | [address] | [place] [address] | | | [facility] | [...] + | [facility] | [address] | [place] [address] | | | [facility]ART [facility] | | | | | LABORATORY | | | | + + + + + | [facility] | | | | | [facility]ART [facility] | | | | | LABORATORY [...] + | [facility] | [address] | [place] [address] | | | [facility] | | | | | LABORATORY | | | | + + + + + | [facility] | | | | | [facility] | | | [...] + + | Glucose | 154 (H)Comment: Colombian | 65 - 99 mg/dL | [facility] | | | | Diabetes Association [...] + | [facility] | [address] | [place] [address] | | | [facility] | | | | | LABORATORY | | | | + + + + + | [facility] | | | | | [facility] | | | | | LABORATORY | | | | + + + + + documented in this encounter Visit Diagnoses Not on filedocumented in this encounter"
--- OUTSIDE RECORDS SUMMARY | ~2019-10-27 | XMS | Encounter Summary ---
Demographics + + + | Address | [address] | | | [place] [address] | + + + | Home Phone [...] Providers + +------+ + | Care Automotive Paint Technician Name | Role | Phone [...] Provider Unknown | | | | | [place], [place] | [phone] | | | | | [address] | | | | | | [phone] | | | +--------+ + + + [...] + + + +---------+ + + | [place]-3 Fatty | CAPS, one capsule by | [...] W | | | | | | [place], | | | | | | [place] [address] | | | | | | [phone] | | | | | | | | +--------+ + + + + | 11/20/ | Implant | Cardiology | Daljit Singletary, | Remote Device | | 2018 | Monitor | | MD [address] [place] | Interrogation | | | | | [place], | (Primary Dx); | | | | | [place] [address] | Presence of | | | | | [phone] | permanent cardiac | | | | [...]
--- OUTSIDE RECORDS SUMMARY | ~2019-10-27 | XMS | Encounter Summary ---
Demographics + + + | Address | [address] | | | [place] [address] | + + + | Home Phone [...] Team Providers + +------+ + | Care Pooling Operator Name | Role | Phone | + +------+ + PCP | Unavailable | + +------+ + Encounter Details +--------+ + + + + | Date | Type | Department | Care Team | Description | +--------+ + + + + | 09/24/ | [facility] | [facility] | Evan Gandara MD | | | 2005 | Encounter | MED CTR XRAY [address] | [address] [facility] | | | | | [place] | [place] | | | | | [place] [address] | [id number] | | | | | [phone] | | | +--------+ + + + [...] | | | | | | [place] [address] | | | | | | [phone] | | | | | | | | +--------+ + + + + | 11/20/ | Implant | Cardiology | Daljit Singletary, | Remote Device | | 2018 | Monitor | | MD [address] | Interrogation | | | | | [address] [place], | (Primary Dx); | | | | | [place] [address] | Presence of | | | | | [phone] | permanent cardiac | | | | [...]
--- OUTSIDE RECORDS SUMMARY | ~2019-10-27 | XMS | Encounter Summary ---
Demographics + + + | Address | [address] | | | [place] [address] | + + + | Home Phone [...] Providers + +------+ + | Care Electromedical Equipment Technician Name | Role | Phone [...] | | CARDIOLOGY [address] | [address] [place] | | | | | [place], | [place], | | | | | [place] [address] | [place] [address] | | | | | [phone] | [phone] | | | | | | | [...] | | | | | | [place] [address] | | | | | | [phone] | | | | | | | | +--------+ + + + + | 11/20/ | Implant | Cardiology | Daljit Singletary, | Remote Device | | 2018 | Monitor | | [address] [facility] | Interrogation | | | | | [place], | (Primary Dx); | | | | | [place] [address] | Presence of | | | | | [phone] | permanent cardiac | | | | [...]
--- OUTSIDE RECORDS SUMMARY | ~2019-10-27 | XMS | Encounter Summary ---
Demographics + + + | Address | [address] | | | [place] [address] | + + + | Home Phone [...] Team Providers + +------+ + | Care Irrigating Pump Operator Name | Role | Phone [...] [address] | | | | | [place], [place] | [place], [place] | | | | | [address] | [address] | | | | | [phone] | | | +--------+ + + + [...] | | | | | | [place] [address] | | | | | | [phone] | | | | | | | | +--------+ + + + + | 11/20/ | Implant | Cardiology | Daljit Singletary, | Remote Device | | 2018 | Monitor | | MD [address] | Interrogation | | | | | [place], | (Primary Dx); | | | | | [place] [address] | Presence of | | | | | [phone] | permanent cardiac | | | | [...]
--- OUTSIDE RECORDS SUMMARY | ~2019-10-27 | XMS | Encounter Summary ---
Demographics + + + | Address | [address] | | | [place] [address] | + + + | Home Phone [...] Team Providers + +------+ + | Care Notary Public Name | Role | Phone | [...] Provider Unknown | | | | | [place], [place] | [phone] | | | | | [address] | | | | | | [phone] | | | +--------+ + + + [...] + + + +---------+ + + | [place]-3 Fatty | CAPS, one capsule by | [...] | | | | | | [place] [address] | | | | | | [phone] | | | | | | | | +--------+ + + + + | 11/20/ | Implant | Cardiology | Daljit Singletary, | Remote Device | | 2018 | Monitor | | MD [address] [place] | Interrogation | | | | | [place], | (Primary Dx); | | | | | [place] [address] | Presence of | | | | | [phone] | permanent cardiac | | | | [...]
--- OUTSIDE RECORDS SUMMARY | ~2019-10-27 | XMS | Encounter Summary ---
Demographics + + + | Address | [address] | | | [place] [address] | + + + | Home Phone [...] Providers + +------+ + | Care Painter Drum Name | Role | Phone | + [...] | 2018 | Changes | GASTROENTEROLOGY | Epidemiology Investigator | | | | | [address] [facility] | | | | | | [address] [place] | | | | | | [address] | | | | | | [phone] | | | +--------+ + + + [...] | | | | | | [place] [address] | | | | | | [phone] | | | | | | | | +--------+ + + + + | 11/20/ | Implant | Cardiology | Daljit Singletary, | Remote Device | | 2018 | Monitor | | [address] [place] | Interrogation | | | | | [place], | (Primary Dx); | | | | | [place] [address] | Presence of | | | | | [phone] | permanent cardiac | | | | [...]
--- OUTSIDE RECORDS SUMMARY | ~2019-10-27 | XMS | Encounter Summary ---
Demographics + + + | Address | [address] | | | [place] [address] | + + + | Home Phone [...] Providers + +------+ + | Care Commutator V Ring Assembler Name | Role | Phone | [...] | | | pain | [address] [place] | [address] | | | | | Procedures | St [place] | [place], | | | | | [place] | [place], [place] | [place] | | | | | Stress Test | [address] | [address] | | | | | (Vasodilator | Phone: | Phone: | | | | | ) CHG | [phone] | [phone] | | | | | MYOCARDIAL | Fax: | Fax: | | | | | SPECT | [phone] | [phone] | | | | | MULTIPLE | [...] 2012 | | CARDIOLOGY [address] | SET UP OPERATOR [address] [place] | interactions, chest | | | | [place], | [place], [place] | pain) | | | | [place] [address] | [address] | | | | | [phone] | | | +--------+ + + + [...] W | | | | | | [place], | | | | | | [place] [address] | | | | | | [phone] | | | | | | | | +--------+ + + + + | 11/20/ | Implant | Cardiology | Daljit Singletary, | Remote Device | | 2018 | Monitor | | MD [address] [place] | Interrogation | | | | | [place], | (Primary Dx); | | | | | [place] [address] | Presence of | | | | | [phone] | permanent cardiac | | | | [...] + | [facility] | [place] | | Department [address] [place] [address] [facility] | | [ rep ct street[address]] [ rep [facility] | | st zip] Signed | - IMAGING | | | | | Patient Name: MOE GAY | | | Physician: JACKLYN : 1960 Age: 53 Sex: M Unit | | | #: [id number] Exam Date: 12/06/13 Location: | | | [facility] Report #: [id number] Page: | | | %(RAD)RES..mtdd.print.filter("pg") of %(RAD) | | | RES..mtdd.print.filter("tpg") | | | | | | Accession Number: [id number] | | | PERSANTINE SESTAMIBI STRESS TEST, [...] Transcribed Date/Time: 12/07/2013 08:18 | | | Communications Supervisor: <<Signature on File>> | | | | | | Daljit Singletary MD [facility] FAS12/07/13 1321 <Electronically signed | | | by Daljit Singletary MD, [facility], [facility], [facility], [facility]> Daljit | | | MD [employer] [facility] 12/07/13 0701 Communications Supervisor: Jessica | | | Yerknppjvevpb72/16/14 0818 PARISA Garcia | | + + + + + + + + | Performing | Address | City/State/Zipcode | Phone Number | | Organization | | | | + + + + + | [facility] | [address] | [place] | [phone] | | [facility] | | [address] | | | - IMAGING | | | | + + + + + documented in this encounter Visit Diagnoses + + | Diagnosis | + + | Other chest pain - Primary | + + documented in this encounter
--- OUTSIDE RECORDS SUMMARY | ~2019-10-27 | XMS | Encounter Summary ---
Demographics + + + | Address | [address] | | | [place] [address] | + + + | Home Phone [...] Team Providers + +------+ + | Care Taxation Consultant Name | Role | Phone | [...] | aortic aneurysm | | | | [place], | [place], | ([facility]) (Primary Dx); | | | | [place] [address] | [place] [address] | Coronary artery | | | | [phone] | [phone] | disease involving | | | | | | [place] coronary | | | | | | artery of [place] | | | | | | heart [...] of non-critical coronary artery d isease involving [place] coronary artery of [place] heart without angina pectoris, essential h ypertension, [...] episode of chest pain while nelly ng [facility], so he took some sublingual nitroglycerin [...] Preventative health care Coronary artery disease involving [place] coronary artery of [place] heart without angina pectoris Cannabis abuse, daily [...] evening [address] [facility] [...] 3rd dose, call 911 100 tablet 3 [place]-3 Fatty Acids (SALMON OIL-1000 PO) CAPS, one [...] [facility] for office visit on [facility]2016 [facility] ch is summarized in the [...] is in class II of the [place] [employer] 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 On physical examination there are no signs of fluid overload. The plan will be to lose weight, modify portion control, start exercising, limit sodium in take and we will start losartan 25 mg once a day with a close monitoring of blood pressure. 2. Non-critical Coronary artery disease involving [place] coronary artery of [place] heart [facility] angina pectoris: A. Normal exercise sestamibi [...] to go back in 3 days to [place] for an attempt of ablation under general [...] this chart may have been created with [employer] voice recognition software. Occasi onal wrong-word [...] | | | | | | [place] [address] | | | | | | [phone] | | | | | | | | +--------+ + + + + | 11/20/ | Implant | Cardiology | Daljit Singletary, | Remote Device | | 2019 | Monitor | | MD [address] [place] | Interrogation | | | | | [place], | (Primary Dx); | | | | | [place] [address] | Presence of | | | | | [phone] | permanent cardiac | | | | [...] + + | Coronary artery disease involving [place] coronary artery of [place] heart without | | angina pectoris | + + | Essential hypertension with goal blood pressure less than 130/80 | + + | Hyperlipidemia, mixed Mixed hyperlipidemia | + + documented in this encounter
--- OUTSIDE RECORDS SUMMARY | ~2019-10-27 | XMS | Encounter Summary ---
Demographics + + + | Address | [address] | | | [place] [address] | + + + | Home Phone [...] Providers + +------+ + | Care Station Gateman Name | Role | Phone | + [...] Results | | 2013 | | [facility] [place] | DO [address] | | | | | [address] | [place] | | | | | [place] | [address] | | | | | [address] | | | | | | [phone] | | | +--------+ + + + [...] | | | | | | [place] [address] | | | | | | [phone] | | | | | | | | +--------+ + + + + | 11/20/ | Implant | Cardiology | Daljit Singletary, | Remote Device | | 2018 | Monitor | | MD [address] | Interrogation | | | | | [place], | (Primary Dx); | | | | | [place] [address] | Presence of | | | | | [phone] | permanent cardiac | | | | [...]
--- OUTSIDE RECORDS SUMMARY | ~2019-10-27 | XMS | Encounter Summary ---
Demographics + + + | Address | [address] | | | [place] [address] | + + + | Home Phone [...] Providers + +------+ + | Care Assistant Reading Teacher Name | Role | Phone | [...] 2016 | | CARDIOLOGY [address] | CURBING STONECUTTER [address] | | | | | [place], | [place], [place] | | | | | [place] [address] | [address] | | | | | [phone] | | | +--------+--------+ + + + [...] W | | | | | | [place], | | | | | | [place] [address] | | | | | | [phone] | | | | | | | | +--------+ + + + + | 11/20/ | Implant | Cardiology | Daljit Singletary, | Remote Device | | 2018 | Monitor | | [address] | Interrogation | | | | | [place], | (Primary Dx); | | | | | [place] [address] | Presence of | | | | | [phone] | permanent cardiac | | | | [...]
--- OUTSIDE RECORDS SUMMARY | ~2019-10-27 | XMS | Encounter Summary ---
Demographics + + + | Address | [address] | | | [place] [address] | + + + | Home Phone [...] Providers + +------+ + | Care Roller Leveler Name | Role | Phone | + +------+ + PCP | Unavailable | + +------+ + Encounter Details +--------+ + + + + | Date | Type | Department | Care Team | Description | +--------+ + + + + | 04/22/ | Hospital | [facility] | | | | 2011 | Encounter | MED CTR XRAY [address] | | | | | | [place] | | | | | | [place] [address] | | | | | | [phone] | | | +--------+ + + + [...] + + + +---------+ + + | [place]-3 Fatty | CAPS, one capsule by | [...] | | | | | | [place] [address] | | | | | | [phone] | | | | | | | | +--------+ + + + + | 11/20/ | Implant | Cardiology | Daljit Singletary, | Remote Device | | 2018 | Monitor | | MD [address] | Interrogation | | | | | [place], | (Primary Dx); | | | | | [place] [address] | Presence of | | | | | [phone] | permanent cardiac | | | | [...] | [facility] Diagnostic Imaging Department | [facility] | | [address] [facility] | [facility] | | CT MYELOGRAM LUMBAR SPINE, | [...] Transcribed Date/Time: | | | 04/23/2012 11:06 Rack Washer: <Electronically Signed | | | by Jama Solis MD> 04/24/12 0730 | | + + + + + | Procedure Note | + + | Kevin, Rad Conversion - 12/29/2013 5:27 PM [facility] | | Diagnostic Imaging Department [address] [place] [address] | | CT MYELOGRAM LUMBAR SPINE, 04/22/2012 [...] <Electronically Signed by Jama Solis MD> 04/24/12 3230 | | | |L3-4: Minimal broad-based disk [...] 10:54 | |Transcribed Date/Time: 04/23/2012 11:06 | |Rack Washer: | |<Electronically Signed by Jama Solis MD> 04/24/12 8530 | + + + +---------+ + + [...] | [facility] Diagnostic Imaging Department | [facility] | | [address] | [facility] | | THORACIC CT MYELOGRAM | DIAG [...] Transcribed Date/Time: 04/22/2012 17:32 | | | Rack Washer: <Electronically Signed by Jama Mason | | | MD Will> 04/23/12 1039 | | + + + + + | Procedure Note | + + | Kalpesh Brown Conversion - 12/29/2013 5:27 PM [facility] | | Diagnostic Imaging Department [address] [place] [address] | | THORACIC CT MYELOGRAM CLINICAL HISTORY: [...] 16:56 | |Transcribed Date/Time: 04/22/2012 17:32 | |Rack Washer: | |<Electronically Signed by Jama Solis MD> [...] | [facility] Diagnostic Imaging Department | [facility] | | [address] [facility] [facility] | [facility] | | CT MYELOGRAM CERVICAL SPINE | [...] Transcribed Date/Time: | | | 04/22/2012 17:25 Rack Washer: <Electronically Signed | | | by Jama Solis MD> 04/23/12 1039 | | + + + + + | Procedure Note | + + | Kalpesh Brown Conversion - 12/29/2013 5:27 PM [facility] | | Diagnostic Imaging Department | | [address] | | | | | | | [...] | Transcribed Date/Time: 04/22/2012 17:25 | | Rack Washer: | | <Electronically Signed by Jama Solis [...] | [facility] Diagnostic Imaging Department | [facility] | | [address] | [facility] | | LUMBAR MYELOGRAM INJECTION FOR CT [...] Transcribed Date/Time: 04/22/2012 16:36 | | | Rack Washer: <Electronically Signed by Jama Mason | | | MD Will> 04/23/12 1039 | | + + + + + | Procedure Note | + + | Kalpesh Brown Conversion - 12/29/2013 5:27 PM [facility] | | Diagnostic Imaging Department [address] [place] [address] | | LUMBAR MYELOGRAM INJECTION FOR CT [...] 15:51 | |Transcribed Date/Time: 04/22/2012 16:36 | |Rack Washer: | |<Electronically Signed by Jama Solis MD> [...]
--- OUTSIDE RECORDS SUMMARY | ~2019-10-27 | XMS | Encounter Summary ---
Demographics + + + | Address | [address] | | | [place] [address] | + + + | Home Phone [...] Providers + +------+ + | Care Fur Vault Attendant Name | Role | Phone | + +------+ + PCP | Unavailable | + +------+ + Encounter Details +--------+ + + + + | Date | Type | Department | Care Team | Description | +--------+ + + + + | 04/28/ | [facility] | [facility] | Jonathan, | | | 2008 | Encounter | MED CTR EMERGENCY | Martell Cr MD [address] | | | | | CENTER [address] | [place] | | | | | [place] | [place] [address] | | | | | [address] | [phone] | | | | | [phone] | | | +--------+ + + + [...] W | | | | | | [place], | | | | | | [place] [address] | | | | | | [phone] | | | | | | | | +--------+ + + + + | 11/20/ | Implant | Cardiology | Daljit Singletary, | Remote Device | | 2019 | Monitor | | MD [address] | Interrogation | | | | | [place], | (Primary Dx); | | | | | [place] [address] | Presence of | | | | | [phone] | permanent cardiac | | | | [...]
--- OUTSIDE RECORDS SUMMARY | ~2019-10-27 | XMS | Encounter Summary ---
Demographics + + + | Address | [address] | | | [place] [address] | + + + | Home Phone [...] Team Providers + +------+ + | Care Termite Inspector Name | Role | Phone | [...] [place], [place] | | | | | [place] | | [address] Phone: | | | | | CYSTO/URETER | | [phone] | | | | | O | | Fax: | | | | | W/LITHOTRIPS | | [phone] | | | | | Y &INDWELL [...] + + | 04/13/ | Surgery | [facility] | Matthew Uriarte | Cystoscopy, Left | | 2018 | | MED CTR OR INTRA OP | Dahl, MD [address] | ureteroscopy with | | | | [address] | [place] | laser lithotripsy, | | | | [place], [place] | [address] | Left ureteral stent | | | | [address] | | placement | | | | [phone] | | | +--------+---------+ + + + [...] Care Everywhere.Kidney Stones, Treating: Ureteroscopic Stone Removal (Slovak)Stents, Ureteral (Slovak)documented in this encounter Medications at Time [...] + + + +---------+ + + | [place]-3 Fatty | CAPS, one capsule by | [...] | | | | | | | [place] coronary | | | | | | | artery of [place] | | | | | | | [...] | | | | | | [place] [address] | | | | | | [phone] | | | | | | | | +--------+ + + + + | 11/20/ | Implant | Cardiology | Daljit Singletary, | Remote Device | | 2018 | Monitor | | [address] [facility] | Interrogation | | | | | [place], | (Primary Dx); | | | | | [place] [address] | Presence of | | | | | [phone] | permanent cardiac | | | | [...] [facility] | | | | | | at:[phone]. | | | | + + + [...] [address], | REFERENCE LAB | | [place], [place] [id number] Flap Curer: Yeny Rios MD, Phone: | ARSH CASTANON | | [phone] | | + + + + + + + + | Performing | Address | City/State/Zipcode | Phone Number | | Organization | | | | + + + + + | REFERENCE LAB | [address] | [place] [address] | [phone] | | [facility] | [address] [...] [address] | [place] | [phone] | | [facility] | | [address] | | | - LABORATORY | | [...] ST. | [address] | [place], [place] | [phone] | | [facility] | | [address] | | | - LABORATORY | | [...] [address] | [place] | [phone] | | [facility] | | [address] | | | - LABORATORY | | [...] + | [address] | [address] | [place] | [phone] | | [facility] | | [address] | | | - LABORATORY | | [...] | 0.92 | 0.70 - 1.30 | [facility] | | | | | mg/dL | [facility] | | | | | | MEDICAL | | | | | | CENTER - | | | | | | LABORATORY | | + + + + + + | eGFR if not | >60Comment: GLOMERULAR | >=60 | [facility] | | | | FILTRATION | mL/min/1.73m2 | [facility] | | | CYMRAES | RATE,ESTIMATED | | MEDICAL | | | | mL/min/1.83h9Njup than | | CENTER - | | [...] [address] | [place] | [phone] | | [facility] | | [address] | | | - LABORATORY | | [...] day), First | | | dose on [facility] 04/13/19 at 1400, | | | Start 8 hours after pre-op dose., | | | Post-op/Phase II | | + +---+ | | | + +---+ | albuterol 2.5 mg/3 mL nebulizer | | | solution 2.5 mg 2.5 mg, | | | Nebulization, ONCE PRN, Wheezing, | | | Starting [facility] 04/13/19 at 0917, | | | [...] HR < 40, | | | Starting [facility] 04/13/19 at 0917, For | | | 2 doses, May repeat one time | | | after 1 min., Recovery/Phase I | | + +---+ | | | + +---+ + +-------+ +--------+---+---+ | ciprofloxacin (CIPRO) tablet | Given | 04/13/20 | 500 mg | | | | 500 mg 500 mg, Oral, ONCE, [facility] | | 19 7:35 | | [...] glucose < 50, | | | Starting [facility] 04/13/19 at 0634, | | | [...] | | | | | | | vpjxuw-ejr-[id number] use of at least | | | [...]
--- OUTSIDE RECORDS SUMMARY | ~2019-10-27 | XMS | Encounter Summary ---
Demographics + + + | Address | [address] [place] [address] | | | [place] [address] | + + + | Home Phone [...] [place] | | | | | [address] | | + + + + + Care Team Providers + +------+ + | Care Camera Maker Name | Role | Phone | [...] | | [facility] Maria | [facility] [place] | ED) | | | | Mailcode: Center | [address] | | | | | for Health and | [phone] | | | | | [facility] [address] | | | | | | [place], [place] | | | | | | [address] | | | | | | [phone] | | | +--------+ + + + [...]
--- OUTSIDE RECORDS SUMMARY | ~2019-10-27 | XMS | Encounter Summary ---
Demographics + + + | Address | [address] | | | [place] [address] | + + + | Home Phone [...] Providers + +------+ + | Care Cured Meats Supervisor Name | Role | Phone | [...] | | | [place], [place] | [phone] | | | | | [address] | | | | | | [phone] | | | +--------+ + + + [...] + + + +---------+ + + | [place]one-3 Fatty | CAPS, one capsule by | [...] | | | | | | [place] [address] | | | | | | [phone] | | | | | | | | +--------+ + + + + | 11/20/ | Implant | Cardiology | Daljit Singletary, | Remote Device | | 2019 | Monitor | | [address] [facility] | Interrogation | | | | | [place], | (Primary Dx); | | | | | [place] [address] | Presence of | | | | | [phone] | permanent cardiac | | | | [...]
--- OUTSIDE RECORDS SUMMARY | ~2019-10-27 | XMS | Encounter Summary ---
Demographics + + + | Address | [address] | | | [place] [address] | + + + | Home Phone [...] Providers + +------+ + | Care Social Service Liaison Name | Role | Phone | + +------+ + PCP | Unavailable | + +------+ + Encounter Details +--------+ + + + + | Date | Type | Department | Care Team | Description | +--------+ + + + + | 04/23/ | Hospital | [facility] | | | | 2007 - | Encounter | MED CTR MED ONC | | | | | | [address] | | | | 04/24/ | | [place] [address] | | | | 2007 | | [phone] | | | +--------+ + + + [...] | | | | | | [place] [address] | | | | | | [phone] | | | | | | | | +--------+ + + + + | 11/20/ | Implant | Cardiology | Daljit Singletary, | Remote Device | | 2018 | Monitor | | [address] [facility] | Interrogation | | | | | [place], | (Primary Dx); | | | | | [place] [address] | Presence of | | | | | [phone] | permanent cardiac | | | | [...]
--- OUTSIDE RECORDS SUMMARY | ~2019-10-27 | XMS | Encounter Summary ---
Demographics + + + | Address | [address] | | | [place] [address] | + + + | Home Phone [...] Providers + +------+ + | Care Slab Worker Name | Role | Phone | + +------+ + | Kirk French MD | PCP | | + +------+ + Encounter Details +--------+ + + + + | Date | Type | Department | Care Team | Description | +--------+ + + + + | 11/16/ | Hospital | [facility] | Kirk French | Aneurysm (HCC) | | 2017 | Encounter | MED CTR ULTRASOUND | D, MD [address] | | | | | [address] [place] | [address] | | | | | [place], [place] | [place] [address] | | | | | [address] | [phone] | | | | | [phone] | | | | | | | [...] + + + +---------+ + + | [place]-3 Fatty | CAPS, one capsule by | [...] | | | | | | [place] [address] | | | | | | [phone] | | | | | | | | +--------+ + + + + | 11/20/ | Implant | Cardiology | Daljit Singletary, | Remote Device | | 2019 | Monitor | | [address] [facility] | Interrogation | | | | | [place], | (Primary Dx); | | | | | [place] [address] | Presence of | | | | | [phone] | permanent cardiac | | | | [...]
--- OUTSIDE RECORDS SUMMARY | ~2019-10-27 | XMS | Encounter Summary ---
Demographics + + + | Address | [address] | | | [place] [address] | + + + | Home Phone [...] Providers + +------+ + | Care Electrical Systems Drafter Name | Role | Phone | [...] [address] | | | | | [place], | [place], | | | | | [place] [address] | [place] [address] | | | | | [phone] | [phone] | | | | | | | [...] W | | | | | | [place], | | | | | | [place] [address] | | | | | | [phone] | | | | | | | | +--------+ + + + + | 11/20/ | Implant | Cardiology | Daljit Singletary, | Remote Device | | 2018 | Monitor | | [address] [place] | Interrogation | | | | | [place], | (Primary Dx); | | | | | [place] [address] | Presence of | | | | | [phone] | permanent cardiac | | | | [...]
--- OUTSIDE RECORDS SUMMARY | ~2019-10-27 | XMS | Encounter Summary ---
Demographics + + + | Address | [address] | | | [place] [address] | + + + | Home Phone [...] Providers + +------+ + | Care Line Maintainer Section Name | Role | Phone | + [...] + | 11/05/ | Telephone | [facility] | Daljit Singletary, | Chest Pain | | 2016 | | CARDIOLOGY [address] | MD [address] [place] | | | | | [place], | [place], | | | | | [place] [address] | [place] [address] | | | | | [phone] | [phone] | | | | | | | [...] | | | | | | [place] [address] | | | | | | [phone] | | | | | | | | +--------+ + + + + | 11/20/ | Implant | Cardiology | Daljit Singletary, | Remote Device | | 2018 | Monitor | | MD [address] | Interrogation | | | | | [place], | (Primary Dx); | | | | | [place] [address] | Presence of | | | | | [phone] | permanent cardiac | | | | [...]
--- OUTSIDE RECORDS SUMMARY | ~2019-10-27 | XMS | Encounter Summary ---
Demographics + + + | Address | [address] | | | [place] [address] | + + + | Home Phone [...] Providers + +------+ + | Care Bulb Weeder Name | Role | Phone | + [...] [address] | | | | | [place], | [place], | | | | | [place] [address] | [place] [address] | | | | | [phone] | [phone] | | | | | | | [...] W | | | | | | [place], | | | | | | [place] [address] | | | | | | [phone] | | | | | | | | +--------+ + + + + | 11/20/ | Implant | Cardiology | Daljit Singletary, | Remote Device | | 2018 | Monitor | | [address] | Interrogation | | | | | [place], | (Primary Dx); | | | | | [place] [address] | Presence of | | | | | [phone] | permanent cardiac | | | | [...]
--- OUTSIDE RECORDS SUMMARY | ~2019-10-27 | XMS | Encounter Summary ---
Demographics + + + | Address | [address] | | | [place] [address] | + + + | Home Phone [...] Providers + +------+ + | Care Rail Bonder Name | Role | Phone | [...] [place] | | | | | | [address] | | | | | | [phone] | | | +--------+ + + + [...] | | | | | | [place], | | | | | | [place] [address] | | | | | | [phone] | | | | | | | | +--------+ + + + + | 11/20/ | Implant | Cardiology | Daljit Singletary, | Remote Device | | 2018 | Monitor | | [address] [facility] | Interrogation | | | | | [place], | (Primary Dx); | | | | | [place] [address] | Presence of | | | | | [phone] | permanent cardiac | | | | [...]
--- OUTSIDE RECORDS SUMMARY | ~2019-10-27 | XMS | Encounter Summary ---
Demographics + + + | Address | [address] | | | [place] [address] | + + + | Home Phone [...] Providers + +------+ + | Care Tray Setter Name | Role | Phone | [...] + + | 05/26/ | Emergency | [facility] | Lizbeth [place] | Atypical chest pain | | 2013 | | MED CTR EMERGENCY | DO Nicole Fink | (Primary Dx); | | | | CENTER [address] | [place], [place] | Anxiety | | | | [place], [place] | [id number] | | | | | [address] | | | | | | [phone] | | | +--------+ + + + [...] + + + +---------+ + + | [place]-3 Fatty | CAPS, one capsule by | [...] | | | | | | [place], | | | | | | [place] [address] | | | | | | [phone] | | | | | | | | +--------+ + + + + | 11/20/ | Implant | Cardiology | Daljit Singletary, | Remote Device | | 2018 | Monitor | | MD [facility] | Interrogation | | | | | [facility], | (Primary Dx); | | | | | [place] [id number] | Presence of | | | | | [phone] | permanent cardiac | | | | [...] the uneventful IV administration of 80 mL [id number] contrast. Timing of | | contrast bolus [...] + | MISCELLANEOUS LAB | | | [phone] | + +---------+ + + | MISCELANIOUS LAB | | | [phone] | + +---------+ + + Troponin I [...] + | [facility] | [address] | [place], [place] | [phone] | | [facility] | | [address] | | | - LABORATORY | | | | + + + + + | [facility] | [address] | [place], [place] | | | [facility] | | [address] | | | - LABORATORY | | [...] 12 | 7 - 18 mg/dL | [facility] | | | | | | [facility] | | | | | | MEDICAL | | | | | | CENTER - | | | | | | LABORATORY | | + + + + + + | Creatinine | 0.89 | 0.60 - 1.30 | [facility] | | | | | mg/dL | [facility] | | | | | | MEDICAL | | | | | | CENTER - | | | | | | LABORATORY | | + + + + + + | eGFR if not | >60Comment: GLOMERULAR | >=60 | [facility] | | | | FILTRATION | mL/min/1.73m2 | [facility] | | | [place] | RATE,ESTIMATED | | MEDICAL | | | | mL/min/1.56j6Osdg than | | CENTER - | | [...] + | [facility] | [address] | [place] | [phone] | | [facility] | | [address] | | | - LABORATORY | | | | + + + + + | [facility] | [address] | [place] | | | [facility] | | [address] | | | - LABORATORY | | [...] + | [facility] | [address] | [place] | [phone] | | [facility] | | [address] | | | - LABORATORY | | | | + + + + + | [facility] | [address] | [place] | | | [facility] | | [address] | | | - LABORATORY | | [...]
--- OUTSIDE RECORDS SUMMARY | ~2019-10-27 | XMS | Encounter Summary ---
Demographics + + + | Address | [address] | | | [place] [address] | + + + | Home Phone [...] Team Providers + +------+ + | Care Sleeper Cutter Name | Role | Phone | + +------+ + PCP | Unavailable | + +------+ + Encounter Details +--------+ + + + + | Date | Type | Department | Care Team | Description | +--------+ + + + + | 02/21/ | [facility] | [facility] | Geri Angel, | | | 2011 | Encounter | MED CTR XRAY [address] | MEDICATION SPECIALIST [address] | | | | | [place] | [address] [place] | | | | | [place] [address] | [address] | | | | | [phone] | | | +--------+ + + + [...] | | | | | | [place] [address] | | | | | | [phone] | | | | | | | | +--------+ + + + + | 11/20/ | Implant | Cardiology | Daljit Singletary, | Remote Device | | 2019 | Monitor | | MD [address] | Interrogation | | | | | [facility] [place], | (Primary Dx); | | | | | [place] [address] | Presence of | | | | | [phone] | permanent cardiac | | | | [...]
--- OUTSIDE RECORDS SUMMARY | ~2019-10-27 | XMS | Encounter Summary ---
Demographics + + + | Address | [address] | | | [place] [address] | + + + | Home Phone [...] Team Providers + +------+ + | Care Philanthropy Officer Name | Role | Phone | + +------+ + PCP | Unavailable | + +------+ + Encounter Details +--------+ + + + + | Date | Type | Department | Care Team | Description | +--------+ + + + + | 05/28/ | [facility] | [facility] | Evan Gandara MD | | | 2008 | Encounter | MED CTR LABORATORY | [address] [facility] | | | | | [address] | [place] | | | | | [place] | [address] | | | | | [address] | | | | | | [phone] | | | +--------+ + + + [...] | | | | | | [place] [address] | | | | | | [phone] | | | | | | | | +--------+ + + + + | 11/20/ | Implant | Cardiology | Daljit Singletary, | Remote Device | | 2019 | Monitor | | MD [address] | Interrogation | | | | | [place], | (Primary Dx); | | | | | [place] [address] | Presence of | | | | | [phone] | permanent cardiac | | | | [...]
--- OUTSIDE RECORDS SUMMARY | ~2019-10-27 | XMS | Encounter Summary ---
Demographics + + + | Address | [address] | | | [place] [address] | + + + | Home Phone [...] + +------+ + | Care Oil Well Cable Tool Operator Name | Role | Phone | + +------+ + | Kirk French MD | PCP | | + +------+ + Encounter Details +--------+ + + + + | Date | Type | Department | Care Team | Description | +--------+ + + + + | 04/07/ | Hospital | [facility] | Pia Akhtar | Spinal stenosis of | | 2016 | Encounter | MED CTR XRAY [address] | MD [address] | lumbar region | | | | [place] | [address] | | | | | [place] [address] | [place] [address] | | | | | [phone] | [phone] | | | | | | | [...] + + + +---------+ + + | Lewis-3 Fatty | CAPS, one capsule by | [...] | | | | | | [place] [address] | | | | | | [phone] | | | | | | | | +--------+ + + + + | 11/20/ | Implant | Cardiology | Daljit Singletary, | Remote Device | | 2018 | Monitor | | [address] [facility] | Interrogation | | | | | [place], | (Primary Dx); | | | | | [place] [address] | Presence of | | | | | [phone] | permanent cardiac | | | | [...]
--- OUTSIDE RECORDS SUMMARY | ~2019-10-27 | XMS | Encounter Summary ---
Demographics + + + | Address | [address] | | | [place] [address] | + + + | Home Phone [...] Providers + +------+ + | Care Process Design Engineer Name | Role | Phone [...] | | | | CENTER [address] | [address] [place] | | | | | [place], [place] | [place] [address] | | | | | [address] | [phone] | | | | | [phone] | | | +--------+ + + + [...] sent through Care Everywhere.Diarrhea, Unkno wn Cause (Nepali)documented in this encounter Medications at Time of [...] + + + +---------+ + + | [place]-3 Fatty | CAPS, one capsule by [...] | | | | | | | comanche coronary | | | | | | | artery of comanche | | | | | | | [...] W | | | | | | [address] [place], | | | | | | [place] [address] | | | | | | [phone] | | | | | | | | +--------+ + + + + | 11/20/ | Implant | Cardiology | Daljit Singletary, | Remote Device | | 2018 | Monitor | | [address] | Interrogation | | | | | [place], | (Primary Dx); | | | | | [place] [address] | Presence of | | | | | [phone] | permanent cardiac | | | | [...] W?MRN: | | | | | | [id number] | | | [id number] | | | riteri | | | [...] | | | St. | | | [place] | | | y | | | [...] | | | St. | | | [place] | | | y | | | [...] | | | St. | | | [place] | | | y H. | | [...] | | | St. | | | [place] | | | y H. | | [...] | | | M.D. | | | Payroll Human Resources Assistant | | | al | | | [...] | | | ent/60 | | | [id number] | | | [phone] | | | [...] | | Lavender | | | [facility] | | | Top Tube [...] [address] | [place] | [phone] | | [facility] | | [address] | | | - LABORATORY | | [...] [address] | [place] | [phone] | | [facility] | | [address] | | | - LABORATORY | | [...] + | [facility] | [address] | [place] | [phone] | | [facility] | | [address] | | | - LABORATORY | | [...] + | [facility] | [address] | [place] | [phone] | | [facility] | | [address] | | | - LABORATORY | | [...] [address] | [place] | [phone] | | [facility] | | [address] | | | - LABORATORY | | [...] 10 | 9 - 23 mg/dL | [facility] | | | | | | [facility] | | | | | | MEDICAL | | | | | | CENTER - | | | | | | LABORATORY | | + + + + + + | Creatinine | 0.96 | 0.70 - 1.30 | [facility] | | | | | mg/dL | [facility] | | | | | | MEDICAL | | | | | | CENTER - | | | | | | LABORATORY | | + + + + + + | eGFR if not | >60Comment: GLOMERULAR | >=60 | [facility] | | | | FILTRATION | mL/min/1.73m2 | [facility] | | | VENEZUELAN | RATE,ESTIMATED | | MEDICAL | | | | mL/min/1.38f5Ihrw than | | CENTER - | | [...] [address] | [place] | [phone] | | [facility] | | [address] | | | - LABORATORY | | [...] [address] | [place] | [phone] | | [facility] | | [address] | | | - LABORATORY | | [...] - 1.030 | [facility] | | | [place] | | | [facility] | | [...] ST. | [address] | [place], [place] | [phone] | | [facility] | | [address] | | | - LABORATORY | | [...]
--- OUTSIDE RECORDS SUMMARY | ~2019-10-27 | XMS | Encounter Summary ---
Demographics + + + | Address | [address] | | | [place] [address] | + + + | Home Phone [...] Providers + +------+ + | Care School Janitor Name | Role | Phone | + [...] [address] | | | | | [place], | [place], | | | | | [place] [address] | [place] [address] | | | | | [phone] | [phone] | | | | | | | [...] | | | | | | [place], | | | | | | [place] [address] | | | | | | [phone] | | | | | | | | +--------+ + + + + | 11/20/ | Implant | Cardiology | Daljit Singletary, | Remote Device | | 2018 | Monitor | | [address] | Interrogation | | | | | [place], | (Primary Dx); | | | | | [place] [address] | Presence of | | | | | [phone] | permanent cardiac | | | | [...] [address] | [place] | [phone] | | [facility] | | [address] | | | - LABORATORY | | [...]
--- OUTSIDE RECORDS SUMMARY | ~2019-10-27 | XMS | Encounter Summary ---
Demographics + + + | Address | [address] | | | [place] [address] | + + + | Home Phone [...] Providers + +------+ + | Care Tax Credit Leasing Consultant Name | Role | Phone | [...] 2012 | | Conversion Location | [address] [address] | | | | | [phone] | [address] [place], | | | | | | [place] [address] | | | | | | [phone] | | | | | | | [...] | | | | | | [place] [address] | | | | | | [phone] | | | | | | | | +--------+ + + + + | 11/20/ | Implant | Cardiology | Daljit Singletary, | Remote Device | | 2019 | Monitor | | [address] [facility] | Interrogation | | | | | [place], | (Primary Dx); | | | | | [place] [address] | Presence of | | | | | [phone] | permanent cardiac | | | | [...]
--- OUTSIDE RECORDS SUMMARY | ~2019-10-27 | XMS | Encounter Summary ---
Demographics + + + | Address | [address] | | | [place] [address] | + + + | Home Phone [...] + +------+ + | Care Medical Assistant Secretary Name | Role | Phone | [...] | Emmanuel E, MD | [address] | | | | | unspecified | [address] | [place], | | | | | type | [place], [place] | [place] | | | | | Abdominal | [address] [place] | [address] | | | | | cramping | [place], [place] | Phone: | | | | | Generalized | [address] | [phone] | | | | | abdominal | Phone: | Fax: | | | | | pain | [phone] | [phone] | | | | | Procedures | Fax: | | | | | | CT Abdomen | [phone] | | | | | | Pelvis [...] | | GASTROENTEROLOGY | [address], [place] | (stomach cramps and | | | | [address] [place] | [address] [place], [place] | liquid stool) | | | | [address] [place], [place] | [address] | | | | | [address] | | | | | | [phone] | | | +--------+ + + + [...] | | | | | | [place] [address] | | | | | | [phone] | | | | | | | | +--------+ + + + + | 12/30/ | Implant | Cardiology | Daljit Singletary, | Remote Device | | 2019 | Monitor | | [facility] | Interrogation | | | | | [place], | (Primary Dx); | | | | | [place] [address] | Presence of | | | | | [phone] | permanent cardiac | | | | [...]
--- OUTSIDE RECORDS SUMMARY | ~2019-10-27 | XMS | Encounter Summary ---
Demographics + + + | Address | [address] | | | [place] [address] | + + + | Home Phone [...] Team Providers + +------+ + | Care Refuse Collector Name | Role | Phone | + +------+ + | Kirk French MD | PCP | | + +------+ + Encounter Details +--------+---------+ + + + | Date | Type | Department | Care Team | Description | +--------+---------+ + + + | 01/05/ | Surgery | [facility] | Emmanuel Daniel MD | EGD | | 2019 | | MED CTR MP INTRA OP | [address], [place] | | | | | [address] | [address] [place], [place] | | | | | [place], [place] | [address] | | | | | [address] | | | | | | [phone] | | | +--------+---------+ + + + [...] for a few hours. Date Last Reviewed: 09/22/201619997597-6367 [employer] [place] [address]. All righ ts reserved. This information is [...] vomiting, or vomiting blood Date Last Reviewed: 05/22/201619999285-0512 [employer] [address] [place] [address]. All righ ts reserved. This information is [...] You can't be awakened Date Last Reviewed: 09/08/201619990435-3293 [employer] [place] [address], [place] [address]. All righ ts reserved. This information is [...] + + + +---------+ + + | [place]-3 Fatty | CAPS, one capsule by | [...] W | | | | | | [place], | | | | | | [place] [address] | | | | | | [phone] | | | | | | | | +--------+ + + + + | 11/20/ | Implant | Cardiology | Daljit Singletary, | Remote Device | | 2018 | Monitor | | [address] [facility] | Interrogation | | | | | [place], | (Primary Dx); | | | | | [place] [address] | Presence of | | | | | [phone] | permanent cardiac | | | | [...] [address], | REFERENCE LAB | | [place], [place] [id number] Shed Workers Supervisor: Miguel Galarza MD, Phone: | [facility] | | [phone] | | + + + + + + + + | Performing | Address | City/State/Zipcode | Phone Number | | Organization | | | | + + + + + | REFERENCE LAB | [address] | [place] [address] | [phone] | | [facility] | Drive [...] + + | Performed at: 01 - [facility] [address] [place] [address], | REFERENCE LAB | | [place], [place] [id number] Shed Workers Supervisor: Miguel Galarza MD, Phone: | [facility] | | [phone] | | + + + + + + + + | Performing | Address | City/State/Zipcode | Phone Number | | Organization | | | | + + + + + | REFERENCE LAB | [address] | [place] [address] | [phone] | | [facility] | Drive [...] [address] | [place] | [phone] | | [facility] | | [address] | | | - LABORATORY | | [...] [address] | [place] | [phone] | | [facility] | | [address] | | | - LABORATORY | | [...] [address] | [place] | [phone] | | [facility] | | [address] | | | - LABORATORY | | [...] [address] | [place] | [phone] | | [facility] | | [address] | | | - LABORATORY | | [...] + | [facility] | [address] | [place] | [phone] | | [facility] | | [address] | | | - LABORATORY | | [...] [address] | [place] | [phone] | | [facility] | | [address] | | | - LABORATORY | | | | + + + + + EGD (01/05/2019 8:36 AM PST) + + | Specimen | + + | | + + + + -+ | Narrative | Performed At | + + -+ | | [facility] | | GastroenterologyPatient Name: Moe Venegas Date: | PROVATION | | 01/05/2019 8:36 AMMRN: [id number] #: [id number] of : | | | 9Admit Type: AmbulatoryAge: 58Room: [facility] 01Gender: MaleNote | | | Status: FinalizedAttending MD: Emmanuel Daniel , [facility] | | | Upper GI endoscopyIndications: Diarrhea, Weight | | | lossProviders: Emmanuel Daniel MD, Heidi Gonzalezchfield, | | | RN, Kim Hicks, Medical Safety Director, | | | Jarett Barakat MD [...] physician, the nurse, the anesthesiologist and the home appliance technician | | | in the endoscopy [...] | | Imaging was performed using the Easy [employer] Intelligent Chromo | | | Endoscopy (FICE) [...] Scope In: 8:43:57 AMScope Out: 8:49:[address] | | | [facility], [address] [place] [address] | | | [phone] | | |Recommendation: | | | - [...] |Scope Out: 8:49:50 AM | | | [facility], [address] [facility], [place], [place] | | | [address] | | + + -+ + +---------+ [...] | PROVATION | | 01/05/2019 8:36 AMMRN: [id number] #: [id number] of : | | | 9Admit Type: AmbulatoryAge: 58Room: [facility] 01Gender: MaleNote | | | Status: FinalizedAttending MD: Emmanuel Daniel , [facility]: | | | ColonoscopyIndications: Clinically significant diarrhea of | | | unexplained origin, Weight lossProviders: | | | Emmanuel Daniel MD, Heidi An RN, Kim | | | Fiorella Hicks, Medical Safety Director, Jarett Alejo | | | MD [...] | | | the anesthesiologist and the home appliance technician in the endoscopy suite. | | [...] AMScope Out: | | | 9:06:28 AM [facility], [address] [facility], | | | [place] [address] | | | - Discharge patient to [...] |Scope Out: 9:06:28 AM | | | [facility], [address] [place] [address], [place], [place] | | | [address] | | + + -+ + +---------+ [...] | | | (atherosclerotic heart disease of wainwright coronary artery without | | | angina [...] A. The | | | specimen, labeled "Grenora, duodenal biopsy" is received in formalin | | | and consists of seven 0.1-0.5 cm lin fragments. Entirely submitted in | | | (A1). B. The specimen, labeled "Grenora, right colon" is received | | | in formalin and consists of six 0.2-0.3 cm lin fragments. Entirely | | | submitted in (B1). C. The specimen, labeled "Grenora, left colon" | | | is received in formalin and consists of six 0.2-0.3 cm lin-pink | | | fragments. Entirely submitted in (C1). am:AMB:rds PERFORMING | | | LABORATORY: The technical component was performed by [employer] | | | [facility], [address] [place] [address] (Women'S Apparel Salesperson: | | | Kailey Stafford MD; CLIA# [id number]). Professional interpretation was | | | performed by [facility], [facility], [address] | | | [place] [address] (Women'S Apparel Salesperson: Ishaan | | | Anthony Dao; CLIA#: [id number]). Diagnostician: Ishaan Fitzpatrick | | | Sylwia [...] Wheezing, | | | Starting [facility] 01/05/19 at 0924, | | | For [...] | mL/hr | | | CONTINUOUS, Starting [facility] 01/05/19 | | AM PST | | | | | at 0800, Pre-op | | | | | | + +---------+ +---+-------+---+ + +---+ | | | + +---+ | ondansetron (ZOFRAN) injection | | | 4 mg 4 mg, Oral, EVERY 4 HOURS | | | PRN, Nausea, Vomiting, Starting | | | [facility] 01/05/19 at 0924, | | | Recovery/Phase I | | + +---+ | | | + +---+ | ondansetron (ZOFRAN) injection | | | 4 mg 4 mg, Intravenous, ONCE | | | PRN, Nausea, Starting [facility] 01/05/19 | | | at 0924, For 1 dose, | | | Recovery/Phase I | | + +---+ | | | + +---+ documented in this encounter
--- OUTSIDE RECORDS SUMMARY | ~2019-10-27 | XMS | Encounter Summary ---
Demographics + + + | Address | [address] | | | [place] [address] | + + + | Home Phone [...] Providers + +------+ + | Care Interactive Media Marketing Strategist Name | Role | Phone [...] | | | | Sinoatrial | Jose, LAVENDER FARM WORKER | [address] | | | | | node | [address] | [place], | | | | | dysfunction | [place] | [place] | | | | | (HCC) | [place], [place] | [address] | | | | | Coronary | [address] | Phone: | | | | | artery | Phone: | [phone] | | | | | disease | [phone] | Fax: | | | | | involving | Fax: | [phone] | | | | | [place] | [phone] | | | | | | coronary | | | | | | | artery of | | | | | | | [place] heart | | | | [...] | | | | | | Complete NE | | | | | | | ECHO HEART | | | | | | | XTHORACIC,[place] | | | | | | | MPLETE W | | | | | | | DOPPLER NE | | | | | | [...] | | | | Sinoatrial | Jose, LAVENDER FARM WORKER | [address] | | | | | node | [address] | [place], | | | | | dysfunction | [place] | [place] | | | | | ([facility]) | [place], [place] | [address] | | | | | Coronary | [address] | Phone: | | | | | artery | Phone: | [phone] | | | | | disease | [phone] | Fax: | | | | | involving | Fax: | [phone] | | | | | [place] | [phone] | | | | | | coronary | | | | | | | artery of | | | | | | | [place] heart | | | | [...] | | | | | | Complete NE | | | | | | | ECHO HEART | | | | | | | XTHORACIC,[place] | | | | | | | MPLETE W | | | | | | | DOPPLER NE | | | | | | [...] + + + + | [facility] | Jose Angel, | Sinoatrial node | | 2016 | Encounter | MED CTR ECHO [address] | LAVENDER FARM WORKER [address] | dysfunction (HCC) | | | | [place] | [place], [place] | with symptomatic | | | | [place] [address] | [address] | bradycardia; | | | | [phone] | | Coronary artery | | | | | Juvenal Blake, | disease involving | | | | | Technologist | [place] coronary [...] + + + +---------+ + + | [place]-3 Fatty | CAPS, one capsule by | [...] | | | | | | [place], | | | | | | [place] [address] | | | | | | [phone] | | | | | | | | +--------+ + + + + | 11/20/ | Implant | Cardiology | Sydni Singletary, | Remote Device | | 2018 | Monitor | | [address] [facility] | Interrogation | | | | | [place], | (Primary Dx); | | | | | [place] [address] | Presence of | | | | | [phone] | permanent cardiac | | | | [...] Patient | [facility] | | [id number] Date of Study 06/16/2016 Number | - IMAGING | | Visit Number [id number] | | | Referring Physician JOSE ARMANDO JOSE Number Date of 1960 | | | Medical Technologist Microbiology LUIS FERNANDO DUARTE Age | | | 56 year(s) Interpreting | | | GURJIT TROY | | | Or Director SYDNI SINGLETARY, | | | Gender | | | Male Nurse Procedure Type of Study TTE | | | procedure: ECHO Complete. Procedure dateDate: 06/16/2016Start: 10:55 | | | AM Technical Quality: Adequate visualizationStudy Location: Echo | | | LabIndications: CAD SAMISH CORONARY ARTERY 414.01/ I25.10 and | | [...] BARRY Room Number SARAH | | Patient [id number] Date of Study 06/16/2016 Number Visit Number | | [id number] Referring Physician JOSE ARMANDO GARCIA Number | | Date of 1960 Medical Technologist Microbiology LUIS FERNANDO DUARTE Age | | 56 year(s) Interpreting GURJIT TROY | | Or Director SYDNI SINGLETARY | | Gender Male NurseProcedureType of Study TTE | | procedure: ECHO Complete.Procedure dateDate: 06/16/2016Start: 10:55 AMTechnical Quality: | | Adequate visualizationStudy Location: Echo LabIndications: CAD SAMISH CORONARY ARTERY | | 414.01/ I25.10 and [...] [address] | [place] | [phone] | | [facility] | | [address] | | | - IMAGING | | [...]
--- OUTSIDE RECORDS SUMMARY | ~2019-10-27 | XMS | Encounter Summary ---
Demographics + + + | Address | [address] | | | [place] [address] | + + + | Home Phone [...] Providers + +------+ + | Care Tablet Tester Name | Role | Phone | [...] + + | 04/07/ | Telephone | [facility] | Matthew Uriarte | Medication Orders | | 2019 | | [address] | MD Tawanna [address] | (Medication ) | | | | [place], [place] | [place], [place] | | | | | [address] | [address] | | | | | [phone] | | | +--------+ + + + [...] | | | | | | [place] [address] | | | | | | [phone] | | | | | | | | +--------+ + + + + | 11/20/ | Implant | Cardiology | Daljit Singletary, | Remote Device | | 2018 | Monitor | | MD [address] | Interrogation | | | | | [address] [place], | (Primary Dx); | | | | | [place] [address] | Presence of | | | | | [phone] | permanent cardiac | | | | [...]
--- OUTSIDE RECORDS SUMMARY | ~2019-10-27 | XMS | Encounter Summary ---
Demographics + + + | Address | [address] | | | [place] [address] | + + + | Home Phone [...] + +------+ + | Care Senior Net C Developer Name | Role | Phone | + +------+ + PCP | Unavailable | + +------+ + Encounter Details +--------+ + + + + | Date | Type | Department | Care Team | Description | +--------+ + + + + | 02/28/ | [facility] | [facility] | Geri Angel, | | | 2011 | Encounter | MED CTR XRAY [address] | ADVANCED SOLUTIONS ARCHITECT [address] | | | | | [place] | [address] [place] | | | | | [place] [address] | [address] | | | | | [phone] | | | +--------+ + + + [...] | | | | | | [place] [address] | | | | | | [phone] | | | | | | | | +--------+ + + + + | 11/20/ | Implant | Cardiology | Daljit Singletary, | Remote Device | | 2019 | Monitor | | [address] | Interrogation | | | | | [place], | (Primary Dx); | | | | | [place] [address] | Presence of | | | | | [phone] | permanent cardiac | | | | [...] [facility] Diagnostic Imaging Department | [place] | | [address] [facility] | [facility] | | LEFT HEART CATHETERIZATION | DIAG [...] was taken to | | | Cardiac Chandelier Maker. He was prepared and draped in the usual fashion | | | under a sterile technique and local anesthesia, percutaneous access | | | was obtained using #6- Maltese sheath in the right femoral artery. | | | Right heart cath was not performed in this patient. Left | | | ventriculography was performed using #6-Maltese pigtail catheter. | | | The selective coronary angiography were then performed in several | | | sagittal and oblique projection using the 6-Maltese JL 4 and #6 Maltese | | | 3DRC diagnostic catheters. The [...] Transcribed | | | Date/Time: 02/29/2012 09:09 Warehouse Lead: | | | <Electronically Signed by Daljit Singletary MD [facility]> 02/29/12 | | | 1002 | | + + + + + | Procedure Note | + + | Kevin, Rad Conversion - 12/29/2013 5:04 PM [facility] | | Diagnostic Imaging Department | | [address] [place] | | | | | | [...] patient was taken to Cardiac | | Chandelier Maker. He was prepared and draped in the usual fashion under a sterile | | technique and local anesthesia, percutaneous access was obtained using #6- | | Maltese sheath in the right femoral artery. Right heart cath was not performed | | in this patient. Left ventriculography was performed using #6-Maltese pigtail | | catheter. The selective coronary angiography were then performed in several | | sagittal and oblique projection using the 6-Maltese JL 4 and #6 Maltese 3DRC | | diagnostic catheters. The patient [...] | Transcribed Date/Time: 02/29/2012 09:09 | | Warehouse Lead: | | <Electronically Signed by Daljit Singletary MD [facility]> 02/29/12 1002 | + + [...]
--- OUTSIDE RECORDS SUMMARY | ~2019-10-27 | XMS | Encounter Summary ---
Demographics + + + | Address | [address] | | | [place] [address] | + + + | Home Phone [...] Providers + +------+ + | Care Manager Mechanical Name | Role | Phone | [...] | Telephone | [facility] [place] | [place], | LABS | | 2019 | | CARDIOLOGY [address] | Janeen GRAIN ORIGINATION SPECIALIST [address] | | | | | [place], | [place], | | | | | [place] [address] | [place] [address] | | | | | [phone] | | | | | | | [...] | | | | | | [place] [address] | | | | | | [phone] | | | | | | | | +--------+ + + + + | 11/20/ | Implant | Cardiology | Daljit Singletary, | Remote Device | | 2018 | Monitor | | [address] [place] | Interrogation | | | | | [place], | (Primary Dx); | | | | | [place] [address] | Presence of | | | | | [phone] | permanent cardiac | | | | [...]
--- OUTSIDE RECORDS SUMMARY | ~2019-10-27 | XMS | Encounter Summary ---
Demographics + + + | Address | [address] | | | [place] [address] | + + + | Home Phone [...] + +------+ + | Care Data Processing Supervisor Name | Role | Phone [...] [address] | | | | | [place], | [place], | | | | | [place] [address] | [place] [address] | | | | | [phone] | [phone] | | | | | | | [...] | | | | | | [place] [address] | | | | | | [phone] | | | | | | | | +--------+ + + + + | 11/20/ | Implant | Cardiology | Daljit Singletary, | Remote Device | | 2018 | Monitor | | [address] [facility] | Interrogation | | | | | [address] [place], | (Primary Dx); | | | | | [place] [address] | Presence of | | | | | [phone] | permanent cardiac | | | | [...]
--- OUTSIDE RECORDS SUMMARY | ~2019-10-27 | XMS | Encounter Summary ---
Demographics + + + | Address | [address] | | | [place] [address] | + + + | Home Phone [...] Providers + +------+ + | Care Fish Inspector Name | Role | Phone | [...] | ER FUP | [address] | [address] | | | | | Procedures | [place], | [place], | | | | | F[place] | [place] [address] | [place] [address] | | | | | | Phone: | Phone: | | | | | | [phone] | [phone] | | | | | | Fax: | Fax: | | | | | | [phone] | [phone] | +--------+--------+ + + + + Encounter Details +--------+---------+ + + + | Date | Type | Department | Care Team | Description | +--------+---------+ + + + | 02/11/ | Office | [facility] | Silvia, | Coronary artery | | 2016 | Visit | CARDIOLOGY [address] | Janeen SLUDGE CONTROL OPERATOR [address] | disease involving | | | | [place], | [place], | sleetmute coronary | | | | [place] [address] | [place] [address] | artery of sleetmute | | | | [phone] | [phone] | heart without angina | | | [...] of non-critical coronary artery d isease involving sleetm[place] coronary artery of [place]etm[place] heart without angina pectoris, essential h ypertension, [...] him. He sleeps on 1 pillow at [facility] without any shortness of breath. Overall, he has been doing well otherwise than the [facility] iety. MEDICAL, SURGICAL, AND PERSONAL [...] Preventative health care Coronary artery disease involving sleetm[place] coronary artery of sleetm[place] heart without angina pectoris Cannabis abuse, daily [...] 3RD DOSE, CALL 911 100 tablet 3 [place]-3 Fatty Acids (SALMON OIL-1000 PO) CAPS, [...] was found Confirmed by ANGELA MARADIAGA MD ([id number]) on 01/25/2017 6:45:26 AM LAB RESULTS reviewed [...] is in class I of t he [place] Heart Ass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 On physical examination there are no signs of fluid overload. 2. Non-critical Coronary artery disease involving sleetmute coronary a rtery of sleetmute heart without angina pectoris: A. Normal exercise [...] this chart may have been created with eCurv voice recognition software. Occasi onal wrong-word or [...] | | | | | | [place] [address] | | | | | | [phone] | | | | | | | | +--------+ + + + + | 11/20/ | Implant | Cardiology | Daljit Singletary, | Remote Device | | 2019 | Monitor | | [facility] | Interrogation | | | | | [place], | (Primary Dx); | | | | | [place] [address] | Presence of | | | | | [phone] | permanent cardiac | | | | [...] + + | Coronary artery disease involving sleetmute coronary artery of sleetmute heart without | | angina pectoris - Primary | + + | Essential hypertension with goal blood pressure less than 130/80 | + + | Hyperlipidemia, mixed Mixed hyperlipidemia | + + documented in this encounter
--- OUTSIDE RECORDS SUMMARY | ~2019-10-27 | XMS | Encounter Summary ---
Demographics + + + | Address | [address] | | | [place] [address] | + + + | Home Phone [...] Providers + +------+ + | Care Material Dispatcher Name | Role | Phone | + +------+ + PCP | Unavailable | + +------+ + Encounter Details +--------+ + + + + | Date | Type | Department | Care Team | Description | +--------+ + + + + | 01/15/ | [facility] | [facility] | Emmanuel Daniel MD | | | 1994 | Encounter | MED CTR GENERIC OP | [address] | | | | | CONV DEPT [address] | [address] | | | | | [place], | [address] | | | | | [place] [address] | | | | | | [phone] | | | +--------+ + + + [...] | | | | | | [place] [address] | | | | | | [phone] | | | | | | | | +--------+ + + + + | 11/20/ | Implant | Cardiology | Daljit Singletary, | Remote Device | | 2019 | Monitor | | MD [address] | Interrogation | | | | | [place], | (Primary Dx); | | | | | [place] [address] | Presence of | | | | | [phone] | permanent cardiac | | | | [...]
--- OUTSIDE RECORDS SUMMARY | ~2019-10-27 | XMS | Encounter Summary ---
Demographics + + + | Address | [address] | | | [place] [address] | + + + | Home Phone [...] Team Providers + +------+ + | Care Phytopathology Teacher Name | Role | Phone | [...] + | 12/29/ | Office | [facility] | Silvia, | Ascending thoracic | | 2017 | Visit | CARDIOLOGY [address] | PARISA [address] | aortic aneurysm | | | | [place], | [place], | (HCC) (Primary Dx); | | | | [place] [address] | [place] [address] | Coronary artery | | | | [phone] | [phone] | disease involving | | | | | | prairie band coronary | | | | | | artery of prairie band | | | | | | [...] of non-critical coronary artery d isease involving prairie band coronary artery of prairie band heart without angina pectoris, essential h [...] start Losartan 25 mg once every day, [facility] blood pressure log, and follow up in 3 months. Since that time, he went to the ER in [facility] with chest pain at the end of [...] Preventative health care Coronary artery disease involving prairie band coronary artery of prairie band heart without angina pectoris Cannabis abuse, [...] 3RD DOSE, CALL 911 100 tablet 3 [place]-3 Fatty Acids (SALMON OIL-1000 PO) [...] was found Confirmed by SYDNI SINGLETARY MD ([id number]) on 06/23/2016 2:08:15 PM LAB RESULTS reviewed [...] PLTEX 129* 05/12/2016 I reviewed records from [facility] for office visit on 09/01/2016 which [...] He is in class I of the [place] Heart Ass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 On physical examination there are no signs of fl uid overload. 2. Non-critical Coronary artery disease involving prairie band coronary a rtery of prairie band heart without angina pectoris: A. Normal [...] is a normal stable device function. Estimated Hububi ng battery longevity is 5 years.. 5. [...] this chart may have been created with Inspro voice recognition software. Occasi onal wrong-word or [...] W | | | | | | [place], | | | | | | [place] [address] | | | | | | [phone] | | | | | | | | +--------+ + + + + | 11/20/ | Implant | Cardiology | Sydni Singletary, | Remote Device | | 2019 | Monitor | | MD [address] | Interrogation | | | | | [place], | (Primary Dx); | | | | | [place] [address] | Presence of | | | | | [phone] | permanent cardiac | | | | [...] + + | Coronary artery disease involving prairie band coronary artery of prairie band heart without | | angina pectoris | + + | Essential hypertension with goal blood pressure less than 130/80 | + + | Hyperlipidemia, mixed Mixed hyperlipidemia | + + documented in this encounter
--- OUTSIDE RECORDS SUMMARY | ~2019-10-27 | XMS | Encounter Summary ---
Demographics + + + | Address | [address] | | | [place] [address] | + + + | Home Phone [...] + +------+ + | Care Director Of Restaurant Operations Name | Role | Phone | [...] + + | 05/15/ | Office | [facility] | Matthew Uriarte | Kidney stones | | 2019 | Visit | [address] | MD Tawanna [address] | (Primary Dx) | | | | [place], [place] | [place], [place] | | | | | [address] | [address] | | | | | [phone] | | | +--------+---------+ + + + [...] [facility] MAIN OR VASECTOMY Family History: [...] 911, Disp: 100 ta blet, Rfl: 3 [place]-3 Fatty Acids (SALMON OIL-1000 PO), CAPS, one [...] pH, Urine 8.0 5.0 - 8.0 Specific Fertile 1.008 1.001 - 1.030 Protein, Urine Negative [...] have not thoroughly proofread this note, and button tufting machine operator errors are very likely to occur. [...] | | | | | | [place], | | | | | | [place] [address] | | | | | | [phone] | | | | | | | | +--------+ + + + + | 11/20/ | Implant | Cardiology | Daljit Singletary, | Remote Device | | 2018 | Monitor | | [facility] | Interrogation | | | | | [place], | (Primary Dx); | | | | | [place] [address] | Presence of | | | | | [phone] | permanent cardiac | | | | [...]
--- OUTSIDE RECORDS SUMMARY | ~2019-10-27 | XMS | Encounter Summary ---
Demographics + + + | Address | [address] | | | [place] [address] | + + + | Home Phone [...] + + | 12/16/ | Hospital | [facility] | | | | 2010 | Encounter | MED CTR LABORATORY | | | | | | [address] | | | | | | [place] | | | | | | [address] | | | | | | [phone] | | | +--------+ + + + [...] | | | | | | [place] [address] | | | | | | [phone] | | | | | | | | +--------+ + + + + | 11/20/ | Implant | Cardiology | Daljit Singletary, | Remote Device | | 2018 | Monitor | | [facility] | Interrogation | | | | | [place], | (Primary Dx); | | | | | [place] [address] | Presence of | | | | | [phone] | permanent cardiac | | | | [...]
--- OUTSIDE RECORDS SUMMARY | ~2019-10-27 | XMS | Encounter Summary ---
Demographics + + + | Address | [address] | | | [place] [address] | + + + | Home Phone [...] Team Providers + +------+ + | Care Duty Engineer Name | Role | Phone | [...] + + | 10/23/ | Office | [facility] | Silvia, | CAD (coronary artery | | 2013 | Visit | CARDIOLOGY [address] | PARISA [address] | disease) (Primary | | | | [place], | [place], | Dx); Other chest | | | | [place] [address] | [place] [address] | pain; Chest pain; | | | | [phone] | [phone] | Coronary artery | | | | [...] Sanchez Date: October 23, 2014 : 1960 [employer] Crewmember: Kailey Pruitt RN Device Doggy Daycare Activities Director: RotaBan Sense (mV) Impedance (?) Capture (V) Capture (ms) A Lead 2.80-4.00 407 1.500 0.09 RV Lead 22.40-31.36 519 2.000 0.09 LV Lead Battery Impedance (?): 658 Battery Voltage (V): 2.79 NC Interval (ms): 155 AR Interval (ms): 240 VA Conduction: Mode Switch Events: 1 % of time: <0.1 -NEON TECHNICIAN: <0.1% AP-NEON TECHNICIAN: <0.1% -VS: 13.8% AP-VS: 86.1% NEON TECHNICIAN: Magnetic Rate: 85 LIDNA: 65 LEAH: Current Underlying Rhythm: Shows sinus [...] Pruitt RN 10/23/2014 15:22 ames Janeen, DIRECTOR OF COLLECTIONS AND ARCHIVES - 10/23/2014 2:22 PM PST PATIENT NAME: [...] needed for Chest pain. 25 tablet 12 [place]-3 Fatty Acids (SALMON OIL-1000 PO) CAPS, one [...] completely be ruled out. [facility] 12/25/13, shows non critical coronary artery [...] He is i n class I-II of [place] Heart Ass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 There are no [...] to go back in 3 days to [place] for an attempt of ablation under general [...] dizziness. He is in class I-II of [place] Heart Ass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 There are n [...] this chart may have been created with Mattersight voice recognition software. Occasi onal wrong-word or [...] W | | | | | | [place], | | | | | | [place] [address] | | | | | | [phone] | | | | | | | | +--------+ + + + + | 11/20/ | Implant | Cardiology | Anshushaistatesha Shaistaanshu, | Remote Device | | 2019 | Monitor | | [address] [facility] | Interrogation | | | | | [place], | (Primary Dx); | | | | | [place] [address] | Presence of | | | | | [phone] | permanent cardiac | | | | [...] 23, 2014 : | | | 1960 [employer] Crewmember: Kailey Pruitt RN Device Doggy Daycare Activities Director: | | | Medtronic Sense (mV) Impedance [...] Switch Events: 1 % of time: <0.1 -NEON TECHNICIAN: <0.1% AP-NEON TECHNICIAN: <0.1% -VS: | | | 13.8% AP-VS: 86.1% NEON TECHNICIAN: Magnetic Rate: 85 LINDA: 65 LEAH: [...] | | Date: October 23, 2014DOB: 1960 [employer] Crewmember: Chikis Saule Doggy Daycare Activities Director: | | Medtronic Sense (mV) Impedance (?) Capture (V) Capture (ms) A Lead 2.80-4.00 407 1.500 | | 0.09 RV Lead 22.40-31.36 519 2.000 0.09 LV Lead Battery Impedance (?): 658 Battery | | Voltage (V): 2.79 NC Interval (ms): 155 AR Interval (ms): 240 VA Conduction: Mode | | Switch Events: 1 % of time: <0.1 -NEON TECHNICIAN: <0.1% AP-NEON TECHNICIAN: <0.1% -VS: 13.8% AP-VS: 86.1% NEON TECHNICIAN: | | Magnetic Rate: 85 LINDA: 65 [...] of unspecified type | | of vessel, [place] or graft | + + | Other chest pain | + + | Chest pain Chest pain, unspecified | + + | Coronary artery disease Coronary atherosclerosis of unspecified type of vessel, | | [place] or graft | + + | [...]
--- OUTSIDE RECORDS SUMMARY | ~2019-10-27 | XMS | Encounter Summary ---
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 He went to [facility] at the end of for his [...] it. He is planning to travel to [facility] the [place] near future for up to a month due to his [id number] having a significant stroke there MEDICAL, SURGICAL, [...] Coronary artery disease involving [place] coronary artery without angina pectoris Cannabis abuse, [...] by mouth Daily. 30 tabl et 6 [facility] Natural Products (OSTEO BI-FLEX/5-LOXIN ADVANCED PO) Take [...] 3rd dose, call 911 25 tablet 11 [place]-3 Fatty Acids (SALMON OIL-1000 PO) CAPS, one [...] Daily. 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 Leads: Right atrium and right ventricle (dual [...] to go back in 3 days to [place] for an attempt of ablation under general [...] dizziness. He is in class I-II of [place] Heart Ass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 T here are [...] this chart may have been created with Giveter voice recognition software. Occasi onal wrong-word or [...] | | | | | | [place], | | | | | | [place] [address] | | | | | | [phone] | | | | | | | | +--------+ + + + + | 11/20/ | Implant | Cardiology | Daljit Singletary, | Remote Device | | 2019 | Monitor | | [address] [facility] | Interrogation | | | | | 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 Leads: Right atrium and right | | [...] Coronary artery disease involving [place] coronary artery without angina pectoris - | | Primary | + + | SINUS BRADYCARDIA Sinoatrial node dysfunction | + + | Essential hypertension Unspecified essential hypertension | + + | Hyperlipidemia Other and unspecified hyperlipidemia | + + | Symptomatic PVCs Other premature beats | + + documented in this encounter
--- OUTSIDE RECORDS SUMMARY | ~2019-10-27 | XMS | Encounter Summary ---
Demographics + + + | Address | [address] | | | [place] [address] | + + + | Home Phone [...] Providers + +------+ + | Care Tree Sapper Name | Role | Phone | + [...] 2019 | | GASTROENTEROLOGY | [address], [place] | | | | | [address] [place] | [address] [place], [place] | | | | | [address] [place], [place] | [address] | | | | | [address] | | | | | | [phone] | | | +--------+ + + + [...] [place], | | | | | | [place] [address] | | | | | | [phone] | | | | | | | | +--------+ + + + + | 11/20/ | Implant | Cardiology | Daljit Singletary, | Remote Device | | 2018 | Monitor | | MD [address] | Interrogation | | | | | [place], | (Primary Dx); | | | | | [place] [address] | Presence of | | | | | [phone] | permanent cardiac | | | | [...]
--- OUTSIDE RECORDS SUMMARY | ~2019-10-27 | XMS | Encounter Summary ---
Demographics + + + | Address | [address] | | | [place] [address] | + + + | Home Phone [...] Providers + +------+ + | Care District Branch Manager Name | Role | Phone | [...] abdominal | [address] | [address] [place], | | | | | pain | [address] | [address] [address] | | | | | Chronic pain | [address] | [place], | | | | | syndrome | [place], [place] | [place] [address] | | | | | Procedures | [address] | Phone: | | | | | Office Visit | Phone: | [phone] | | | | | | [phone] | Fax: | | | | | | Fax: | [phone] | | | | | | [phone] | | +--------+--------+ + + + + Encounter Details +--------+---------+ + + + | Date | Type | Department | Care Team | Description | +--------+---------+ + + + | 12/02/ | [facility] | [facility] [place] | Emmanuel Daniel MD | Diarrhea, | | 2018 | Visit | GASTROENTEROLOGY | [address] [place], [place] | unspecified type | | | | [address] [place] | [address] [place], [place] | (Primary Dx); Weight | | | | [address] [place], [place] | [address] | loss, | | | | [address] | | unintentional; | | | | [phone] | | Generalized | | | | [...] | | | | | | [place] [address] | | | | | | [phone] | | | | | | | | +--------+ + + + + | 11/20/ | Implant | Cardiology | Daljit Singletary, | Remote Device | | 2018 | Monitor | | MD [address] | Interrogation | | | | | [place], | (Primary Dx); | | | | | [place] [address] | Presence of | | | | | [phone] | permanent cardiac | | | | [...]
--- OUTSIDE RECORDS SUMMARY | ~2019-10-27 | XMS | Encounter Summary ---
Demographics + + + | Address | [address] | | | [place] [address] | + + + | Home Phone [...] Providers + +------+ + | Care Market Asset Protection Manager Name | Role | Phone | [...] + | 11/26/ | Telephone | [facility] | Silvia, | Appointment (Needs | | 2017 | | CARDIOLOGY [address] | PAR[address] | rescheduled) | | | | [place], | [place], | | | | | [place] [address] | [place] [address] | | | | | [phone] | [phone] | | | | | | | [...] W | | | | | | [place], | | | | | | [place] [address] | | | | | | [phone] | | | | | | | | +--------+ + + + + | 11/20/ | Implant | Cardiology | Daljit Singletary, | Remote Device | | 2018 | Monitor | | [address] [place] | Interrogation | | | | | [place], | (Primary Dx); | | | | | [place] [address] | Presence of | | | | | [phone] | permanent cardiac | | | | [...]
--- OUTSIDE RECORDS SUMMARY | ~2019-10-27 | XMS | Encounter Summary ---
Demographics + + + | Address | [address] | | | [place] [address] | + + + | Home Phone [...] [address] | | | | | [place], | [place], | | | | | [place] [address] | [place] [address] | | | | | [phone] | [phone] | | | | | | | [...] 2018 | Visit | | APRISA [address] | | | | | | [place], | | | | | | [place] [address] | | | | | | [phone] | | | | | | | | +--------+ + + + + | 11/20/ | Implant | Cardiology | Daljit Singletary, | Remote Device | | 2018 | Monitor | | [address] [facility] | Interrogation | | | | | [place], | (Primary Dx); | | | | | [place] [address] | Presence of | | | | | [phone] | permanent cardiac | | | | [...]
--- OUTSIDE RECORDS SUMMARY | ~2019-10-27 | XMS | Encounter Summary ---
Demographics + + + | Address | [address] | | | [place] [address] | + + + | Home Phone [...] Providers + +------+ + | Care Guide Foreign Tour Name | Role | Phone | + +------+ + | Kirk French MD | PCP | | + +------+ + Encounter Details +--------+---------+ + + + | Date | Type | Department | Care Team | Description | +--------+---------+ + + + | 01/25/ | Surgery | [facility] | Daljit Singletary, | CV LHC | | 2019 | | MED CTR CV INTRA OP | MD [address] | | | | | [address] | [address] [place], | | | | | [place] | [place] [address] | | | | | [address] | [phone] | | | | | [phone] | | | +--------+---------+ + + + [...] by your healthcare provider Date Last Reviewed: 09/22/201619991592-7902 [employer] [place] [address]. All righ ts reserved. This information is [...] + + + +---------+ + + | Drake-3 Fatty | CAPS, one capsule by | [...] | | | | | | [place], | | | | | | [place] [address] | | | | | | [phone] | | | | | | | | +--------+ + + + + | 11/20/ | Implant | Cardiology | Daljit Singletary, | Remote Device | | 2018 | Monitor | | [address] [facility] | Interrogation | | | | | [place], | (Primary Dx); | | | | | [place] [address] | Presence of | | | | | [phone] | permanent cardiac | | | | [...] (1960) MEDICAL RECORD NUMBER: | | | [id number] OF PROCEDURE: 01/25/2019 AUTO ROLLER: Daljit | | | MD Gemini PROCEDURES [...] Sanchez, (1960) | | OF PROCEDURE: 01/25/2019PRIMARY TNT POWDER WORKER: Daljit Singletary MD PROCEDURES | | PERFORMED:Coronary [...] or lesion | | type, unspecified whether new [place] or transplanted heart | + + documented [...]
--- OUTSIDE RECORDS SUMMARY | ~2019-10-27 | XMS | Encounter Summary ---
Demographics + + + | Address | [address] | | | [place] [address] | + + + | Home Phone [...] | | | | CENTER [address] | [address] | (Primary Dx) | | | | [place], [place] | [place], [place] | | | | | [address] | [address] | | | | | [phone] | | | +--------+ + + + [...] W | | | | | | [place], | | | | | | [place] [address] | | | | | | [phone] | | | | | | | | +--------+ + + + + | 11/20/ | Implant | Cardiology | Sydni Singletary, | Remote Device | | 2019 | Monitor | | [address] | Interrogation | | | | | [place], | (Primary Dx); | | | | | [place] [address] | Presence of | | | | | [phone] | permanent cardiac | | | | [...] W?MRN: | | | | | | [id number] | | | [id number] | | | his | | | [...] | | | ent/60 | | | [id number] | | | -5586- | | | [...] | | | St. | | | [place] | | | y | | | [...] | | | ext. | | | [address] | | | or go | | [...] | | | M.D. | | | Cell Tester | | | al | | [...] ST. | [address] | [place] | [phone] | | [facility] | | [address] | | | - LABORATORY | | [...] [address] | [place] | [phone] | | [facility] | | [address] | | | - LABORATORY | | [...] [address] | [place] | [phone] | | [facility] | | [address] | | | - LABORATORY | | [...] mL/min/1.73m2 | . [place] | | | [place] | RATE,ESTIMATED | | MEDICAL | | | | mL/min/1.29s5Xfmn than | | CENTER - | | [...] ST. | [address] | [place] | [phone] | | [facility] | | [address] | | | - LABORATORY | | [...] ST. | [address] | [place], [place] | [phone] | | [facility] | | [address] | | | - LABORATORY | | [...] + | [facility] | [address] | [place] | [phone] | | [facility] | | [address] | | | - LABORATORY | | [...] SYDNI | | | | | | ([id number]) on 06/22/2018 | | | | | [...]
--- OUTSIDE RECORDS SUMMARY | ~2019-10-27 | XMS | Encounter Summary ---
Demographics + + + | Address | [address] | | | [place] [address] | + + + | Home Phone [...] Team Providers + +------+ + | Care Oleo Hasher And Renderer Name | Role | Phone | [...] [address] | | | | | [place], | [place], | | | | | [place] [address] | [place] [address] | | | | | [phone] | [phone] | | | | | | | [...] | | | | | | [place], | | | | | | [place] [address] | | | | | | [phone] | | | | | | | | +--------+ + + + + | 11/20/ | Implant | Cardiology | Daljit Singletary, | Remote Device | | 2018 | Monitor | | [address] | Interrogation | | | | | [place], | (Primary Dx); | | | | | [place] [address] | Presence of | | | | | [phone] | permanent cardiac | | | | [...]
--- OUTSIDE RECORDS SUMMARY | ~2019-10-27 | XMS | Encounter Summary ---
Demographics + + + | Address | [address] | | | [place] [address] | + + + | Home Phone [...] + +------+ + | Care Revenue Cycle Administrator Name | Role | Phone | + +------+ + | Kirk French MD | PCP | | + +------+ + Encounter Details +--------+ + + + + | Date | Type | Department | Care Team | Description | +--------+ + + + + | 12/24/ | [facility] | [facility] | Emmanuel Daniel MD | Pain of upper | | 2018 | Encounter | MED CTR MP INTRA OP | [address], [place] | abdomen (Primary | | | | [address] | [address] [place], [place] | Dx); Functional | | | | [place], [place] | [address] | diarrhea; Weight | | | | [address] | | loss | | | | [phone] | | | +--------+ + + + [...] + + +---------+ + + | [place]-3 Fatty | CAPS, one capsule by [...] | | | | | | [place] [address] | | | | | | [phone] | | | | | | | | +--------+ + + + + | 11/20/ | Implant | Cardiology | Daljit Singletary, | Remote Device | | 2019 | Monitor | | [address] [facility] | Interrogation | | | | | [place], | (Primary Dx); | | | | | [place] [address] | Presence of | | | | | [phone] | permanent cardiac | | | | [...] Performed at: 01 - [facility] [place] [address], | REFERENCE LAB | | [place], [place] [id number] Guest Relation Officer: William Andrew MD, Phone: | ARSH CASTANON | | [phone] | | + + + + + + + + | Performing | Address | City/State/Zipcode | Phone Number | | Organization | | | | + + + + + | REFERENCE LAB | [address] | [place], [place] [address] | [phone] | | [facility] - [place] | Drive [...] + | [facility] | [address] | [place] | [phone] | | [facility] | | [address] | | | - LABORATORY | | [...] [address] | [place] | [phone] | | [facility] | | [address] | | | - LABORATORY | | [...] + | [facility] | [address] | [place] | [phone] | | [facility] | | [address] | | | - LABORATORY | | [...] + + | Performed at: 01 - [facility] [address], | REFERENCE LAB | | [place], [place] [id number] Guest Relation Officer: William Andrew MD, Phone: | ARSH CASTANON | | [phone] | | + + + + + + + + | Performing | Address | City/State/Zipcode | Phone Number | | Organization | | | | + + + + + | REFERENCE LAB | [address] | [place] [address] | [phone] | | [facility] - [place] | Drive [...] + | [facility] | [address] | [place] | [phone] | | [facility] | | [address] | | | - LABORATORY | | [...] ST. | [address] | [place], [place] | [phone] | | [facility] | | [address] | | | - LABORATORY | | [...] [address] | [place] | [phone] | | [facility] | | [address] | | | - LABORATORY | | [...] [address] | [place] | [phone] | | [facility] | | [address] | | | - LABORATORY | | [...] [address] | [place] | [phone] | | [facility] | | [address] | | | - LABORATORY | | | | + + + + + EGD (12/24/2017 1:19 PM PST) + + | Specimen | + + | | + + + + -+ | Narrative | Performed At | + + -+ | | [facility] | | GastroenterologyPatient Name: Moe Venegas Date: 12/24/2017 | [facility] | | 1:19 PMMRN: [id number] #: [id number] of : | | | 9Admit Type: AmbulatoryAge: 57Room: [facility] 01Gender: MaleNote | | | Status: FinalizedAttending MD: Emmanuel Daniel , [facility]cedure: | | | Upper GI endoscopyIndications: Diarrhea, Weight | | | lossProviders: Emmanuel Daniel MD, Maria Isabel Morris RN, | | | Kim Hicks, Repairer Controller Tester, Jarett | | | Sapna Barakat MD [...] the anesthesiologist and | | | the chemical production technician in the endoscopy suite. Mental Status [...] PMScope Out: 1:31:13 PM | | | [facility], [address] [facility] | | | [place] [address] | | | - Discharge patient to [...] Out: 1:31:13 PM | | | [facility], [address] [facility], [place], [place] | | | [address] | | + + -+ + +---------+ [...] 12/24/2017 | [facility] | | 1:17 PMMRN: [id number] #: [id number] of : | | | 9Admit Type: AmbulatoryAge: 57Room: [facility] 01Gender: MaleNote | | | Status: FinalizedAttending MD: Emmanuel Daniel , [facility]cedure: | | | ColonoscopyIndications: Clinically significant diarrhea of | | | unexplained originProviders: Emmanuel Daniel MD, Maria Isabel | | | Arturo RN, Kim Hicks, Repairer Controller Tester, | | | Jarett Barakat MD (Anesthesia [...] | | the anesthesiologist and the chemical production technician in the endoscopy suite. | | [...] Scope In: 1:32:55 PMScope Out: 1:48:57 PM [facility] | | | [facility], [address] [place] [address] | | | [phone] | | | - Await pathology results. [...] |Scope Out: 1:48:57 PM | | | [facility], [address] [place] [address] | | | [address] | | + + -+ + +---------+ [...] colonic mucosa with focal adenomatous change. CLR:[facility]m [facility]:C2NR | | | GROSS DESCRIPTION: [...] | cm, submitted, all in (D1). ka:CLR:[facility] ADDITIONAL NOTES: | | | Immunohistochemical studies were performed on this case with the | | | appropriate positive controls that react as expected. This test was | | | developed and its performance characteristics determined by [employer] | | | [facility]. It has not been cleared or approved by the U.S. Food | | | and Drug Administration. The FDA has determined that such clearance | | | or approval is not necessary. This test is used for clinical | | | purposes. It should not be regarded as investigational or for | | | research. [employer] is certified under the Clinical | | | Laboratory Improvement Amendments of 1988 (CLIA) as qualified to | | | perform high complexity clinical laboratory testing. This assay | | | has not been validated for specimens that have been decalcified. | | | PERFORMING LABORATORY: Tissue processing and slide preparation were | | | performed by [facility] [employer], [facility] ., [facility] | | | [place] [address] (Hand Flesher: Evan Frausto M.D. CLIA#: | | | [id number]). Professional interpretation was performed by [employer] | | | [facility], [facility] [address], [place] [address] | | | (Hand Flesher: Evan Frausto M.D.; CLIA#: [id number]). | | | Diagnostician: Rafael Bales MD [...]
--- OUTSIDE RECORDS SUMMARY | ~2019-10-27 | XMS | Encounter Summary ---
Demographics + + + | Address | [address] | | | [place] [address] | + + + | Home Phone [...] Providers + +------+ + | Care Gun Mechanic Name | Role | Phone | + +------+ + | Michael Amanda DO | PCP | | + +------+ + Encounter Details +--------+ + + + + | Date | Type | Department | Care Team | Description | +--------+ + + + + | 04/03/ | Hospital | [facility] | Jay Gambino MD | | | 2012 - | Encounter | HEART MED CTR | [address] | | | | | CARDIAC TRANSPLANT | [address] [place] | | | 04/04/ | | [address] | [place] [address] | | | 2012 | | [place] | [phone] | | | | | [address] | | | | | | [phone] | | | +--------+ + + + [...] 1960 ADMISSION DATE: 04/03/2013 DISCHARGE DATE: 04/04/2013 [id number] / [id number] ADMISSION DIAGNOSES: 1. Symptomatic premature ventricular contractions [...] study and ablati on. MOE GAY ADM:04/03/13 [id number] 04/04/13 DIS [place] DISCHARGE SUMMARY [id number] [facility] PARISA Hughes [facility] MD Meena Pleitez THIS REPORT IS CONFIDENTIAL AND NOT TO BE RELEASED WITHOUT PROPER AUTHORIZATION. [facility] Mr. Gay was taken to [...] 180 mg once daily. MOE GAY ADM:04/03/13 [id number] 04/04/13 DIS [place] DISCHARGE SUMMARY [id number] [facility] PARISA Hughes [facility] MD Meena Pleitez THIS REPORT IS CONFIDENTIAL AND NOT TO BE RELEASED WITHOUT PROPER AUTHORIZATION. [facility] 5. Docusate sodium 2 tablets once daily. 6. Marinol 10 mg twice daily. 7. Metoprolol succinate 200 mg once daily. 8. Oxycodone 10 mg 10 mg oral as needed. 9. Oxycodone 30 mg oral twice daily. 10. Pravastatin 40 mg at bedtime. 11. Promethazine 25 mg as needed. 12. Ranitidine 1 to 2 tablets once daily. 13. [place] oil 2 tablets twice daily. 14. Valacyclovir 500 mg once daily. There were no new medications or medication dosage changes at time of discharge. PLAN: 1. Mr. Gay will be discharged home on medications as noted above, including his usual m edications of diltiazem and metoprolol. 2. He will be seen and followed by Dr. Gambino on 16 at 9:00 a.m. at [facility], [address]. 3. He will contact our office earlier than scheduled appointment should he have any diffic ulty prior to that time. PARISA Hughes MD A P RICHIE/med #[id number] cc: MD Dona Pleitez ARNP Suwong Wongsuwan, MD Electronically Signed 04/12/13 1400 PARISA Hughes Electronically Signed 05/22/13 1245 Jay Gambino MD MOE GAY ADM:04/03/13 [id number] 04/04/13 DIS [place] DISCHARGE SUMMARY [id number] [facility] PARISA Hughes ES B [facility] Jay Gambino MD R THIS REPORT IS CONFIDENTIAL AND NOT TO BE RELEASED WITHOUT PROPER AUTHORIZATION.Electronica lly signed by Jael Brown at 05/22/2013 1:25 PM Dona Grossman ARNP - 04/04/2013 9:05 AM PDT PATIENT NAME: MOE GAY Sex/Age: M / 53Y : 1960 ADMISSION DATE: 04/03/2013 DISCHARGE DATE: 04/04/2013 [id number] / [id number] ADMISSION DIAGNOSES: 1. Symptomatic premature ventricular contractions [...] and ablati on. MOE GAY Jaimee ADM:04/03/13 [id number] 04/04/13 [place] DISCHARGE SUMMARY [id number] [facility] PARISA Hughes [facility] MD Meena Pleitez THIS REPORT IS CONFIDENTIAL AND NOT TO BE RELEASED WITHOUT PROPER AUTHORIZATION. [facility] Mr. Gay was taken to [...] 180 mg once daily. MOE GAY ADM:04/03/13 [id number] 04/04/13 DIS [place] DISCHARGE SUMMARY [id number] [facility] PARISA Hughes [facility] MD Meena Pleitez THIS REPORT IS CONFIDENTIAL AND NOT TO BE RELEASED WITHOUT PROPER AUTHORIZATION. [facility] 5. Docusate sodium 2 tablets once daily. 6. Marinol 10 mg twice daily. 7. Metoprolol succinate 200 mg once daily. 8. Oxycodone 10 mg 10 mg oral as needed. 9. Oxycodone 30 mg oral twice daily. 10. Pravastatin 40 mg at bedtime. 11. Promethazine 25 mg as needed. 12. Ranitidine 1 to 2 tablets once daily. 13. [place] oil 2 tablets twice daily. 14. Valacyclovir 500 mg once daily. There were no new medications or medication dosage changes at time of discharge. PLAN: 1. Mr. Gay will be discharged home on medications as noted above, including his usual m edications of diltiazem and metoprolol. 2. He will be seen and followed by Dr. Gambino on 16 at 9:00 a.m. at [facility], [address]. 3. He will contact our office earlier than scheduled appointment should he have any diffic ulty prior to that time. PARISA Hughes MD A P RICHIE/med #[id number] cc: MD Dona Pleitez ARNP Suwong Wongsuwan, MD Electronically Signed 04/12/13 1400 PARISA Hughes MOE GAY ADM:04/03/13 [id number] 04/04/13 DIS [place] DISCHARGE SUMMARY [id number] [facility] PARISA Hughes [facility] MD Meena Pleitez THIS [...] + + + +---------+ + + | [place]-3 Fatty | CAPS, one capsule by | [...] | | | | | | [place] [address] | | | | | | [phone] | | | | | | | | +--------+ + + + + | 11/20/ | Implant | Cardiology | Daljit Singletary, | Remote Device | | 2019 | Monitor | | [address] [facility] | Interrogation | | | | | [place], | (Primary Dx); | | | | | [place] [address] | Presence of | | | | | [phone] | permanent cardiac | | | | [...] + + + | Glucose | 94Comment: Czech | 65 - 99 mg/dL | [facility] [...] | | | | failure.For | | [place] | | | | Americans, multiply the [...] + + | [facility] SACRED | [address] | [place] [address] | | | [facility] [...] + + | YESSY JONES | [address] | [place] [address] | | | [facility] | | | | | LABORATORY | | | | + + + + + documented in this encounter Visit Diagnoses Not on filedocumented in this encounter"
--- OUTSIDE RECORDS SUMMARY | ~2019-10-27 | XMS | Encounter Summary ---
Demographics + + + | Address | [address] | | | [place] [address] | + + + | Home Phone [...] | | | | [place], [place] | [phone] | | | | | [address] | | | | | | [phone] | | | +--------+ + + + [...] + + + +---------+ + + | [place]-3 Fatty | CAPS, one capsule by [...] | | | | | | [place] [address] | | | | | | [phone] | | | | | | | | +--------+ + + + + | 11/20/ | Implant | Cardiology | Daljit Singletary, | Remote Device | | 2018 | Monitor | | [address] [facility] | Interrogation | | | | | [place], | (Primary Dx); | | | | | [place] [address] | Presence of | | | | | [phone] | permanent cardiac | | | | [...]
--- OUTSIDE RECORDS SUMMARY | ~2019-10-27 | XMS | Encounter Summary ---
Demographics + + + | Address | [address] [place] [address] | | | [place] [address] | + + + | Home Phone [...] [place] | | | | | [address] | | + + + + + Care Team Providers + +------+ + | Care Mainspring Barrel Assembly Cleaner Name | Role | Phone | [...]
--- OUTSIDE RECORDS SUMMARY | ~2019-10-27 | XMS | Encounter Summary ---
Demographics + + + | Address | [address] | | | [place] [address] | + + + | Home Phone [...] Providers + +------+ + | Care Data Warehouse Developer Name | Role | Phone | [...] | 03/02/ | Telephone | [facility] | Daljit Singletary, | Other | | 2013 | | CARDIOLOGY [address] | MD [address] [place] | | | | | [place], | [place], | | | | | [place] [address] | [place] [address] | | | | | [phone] | [phone] | | | | | | | [...] 2018 | Visit | | [address] | | | | | | [place], | | | | | | [place] [address] | | | | | | [phone] | | | | | | | | +--------+ + + + + | 11/20/ | Implant | Cardiology | Daljit Singletary, | Remote Device | | 2018 | Monitor | | MD [address] | Interrogation | | | | | [place], | (Primary Dx); | | | | | [place] [address] | Presence of | | | | | [phone] | permanent cardiac | | | | [...]
--- OUTSIDE RECORDS SUMMARY | ~2019-10-27 | XMS | Encounter Summary ---
Demographics + + + | Address | [address] | | | [place] [address] | + + + | Home Phone [...] Providers + +------+ + | Care Automobile Carpets Molder Name | Role | Phone | + +------+ + PCP | Unavailable | + +------+ + Encounter Details +--------+ + + + + | Date | Type | Department | Care Team | Description | +--------+ + + + + | 06/14/ | [facility] | [facility] | Kennethshaistatesha Shaistakenneth, | | | 2008 - | Encounter | MED CTR MP INTRA OP | [address] | | | | | [address] | [address] [place], | | | 06/15/ | | [place] | [place] [address] | | | 2008 | | [address] | [phone] | | | | | [phone] | | | +--------+ + + + [...] W | | | | | | [place], | | | | | | [place] [address] | | | | | | [phone] | | | | | | | | +--------+ + + + + | 11/20/ | Implant | Cardiology | Daljit Singletary, | Remote Device | | 2019 | Monitor | | MD [address] | Interrogation | | | | | [place], | (Primary Dx); | | | | | [place] [address] | Presence of | | | | | [phone] | permanent cardiac | | | | [...]
--- OUTSIDE RECORDS SUMMARY | ~2019-10-27 | XMS | Encounter Summary ---
Demographics + + + | Address | [address] | | | [place] [address] | + + + | Home Phone [...] Providers + +------+ + | Care Senior Scientist Name | Role | Phone | [...] + + | 05/15/ | Office | [facility] | Matthew Uriarte | Kidney stones | | 2019 | Visit | [address] | MD Tawanna [address] | (Primary Dx) | | | | [place], [place] | [place], [place] | | | | | [address] | [address] | | | | | [phone] | | | +--------+---------+ + + + [...] CV LHC; Surgeon: Daljit Singletary MD; Location: [facility] CV LAB CARDIAC CATHERIZATION N/A 01/25/2019 Procedure: CV Cor Angio; Surgeon: Daljit Singletary MD; Location: [facility] CV LAB COLONOSCOPY N/A 12/24/2017 Procedure: COLONOSCOPY; Surgeon: Emmanuel Daniel MD; Location: [facility] MEDICAL PROCEDURE UNIT COLONOSCOPY N/A 01/05/2019 Procedure: COLONOSCOPY; Surgeon: Emmanuel Daniel MD; Location: [facility] MEDICAL PROCEDURE UNIT EGD 12/24/2017 HARDWARE [...] Procedure: EGD; Surgeon: Emmanuel Daniel MD; Location: [facility] MEDICAL PROCEDURE UNIT UPPER GASTROINTESTINAL ENDOSCOPY N/A 01/05/2019 Procedure: EGD; Surgeon: Emmanuel Daniel MD; Location: [facility] MEDICAL PROCEDURE UNIT URETEROSCOPY Left 04/13/2019 Procedure: Cystoscopy, Left ureteroscopy with laser lithotripsy, Left ureteral stent place ment; Surgeon: Matthew Uriarte MD; Location: [facility] MAIN OR VASECTOMY Family History: Family [...] 911, Disp: 100 ta blet, Rfl: 3 [place]-3 Fatty Acids (SALMON OIL-1000 PO), CAPS, one [...] pH, Urine 8.0 5.0 - 8.0 Specific [place] 1.008 1.001 - 1.030 Protein, Urine Negative [...] have not thoroughly proofread this note, and pad extraction tender errors are very likely to occur. [...] W | | | | | | [place], | | | | | | [place] [address] | | | | | | [phone] | | | | | | | | +--------+ + + + + | 11/20/ | Implant | Cardiology | Daljit Singletary, | Remote Device | | 2018 | Monitor | | [address] [facility] | Interrogation | | | | | [place], | (Primary Dx); | | | | | [place] [address] | Presence of | | | | | [phone] | permanent cardiac | | | | [...]
--- OUTSIDE RECORDS SUMMARY | ~2019-10-27 | XMS | Encounter Summary ---
Demographics + + + | Address | [address] | | | [place] [address] | + + + | Home Phone [...] + + | 06/23/ | [facility] | [facility] | Arthur Page MD | | | 2007 - | Encounter | MED CTR MED ONC | [address] [facility] | | | | | [address] [place] | [place] | | | 06/25/ | | [place] [address] | [address] | | | 2007 | | [phone] | | | +--------+ + + + [...] | | | | | | [place] [address] | | | | | | [phone] | | | | | | | | +--------+ + + + + | 11/20/ | Implant | Cardiology | Daljit Singletary, | Remote Device | | 2019 | Monitor | | MD [address]iquis [address] | Interrogation | | | | | [place], | (Primary Dx); | | | | | [place] [address] | Presence of | | | | | [phone] | permanent cardiac | | | | [...]
--- OUTSIDE RECORDS SUMMARY | ~2019-10-27 | XMS | Encounter Summary ---
Demographics + + + | Address | [address] | | | [place] [address] | + + + | Home Phone [...] Providers + +------+ + | Care Private Inquiry Agent Name | Role | Phone | [...] [place] | | | | | | [address] | | | | | | [phone] | | | +--------+ + + + [...] | | | | | | [place], | | | | | | [place] [address] | | | | | | [phone] | | | | | | | | +--------+ + + + + | 11/20/ | Implant | Cardiology | Daljit Singletary, | Remote Device | | 2018 | Monitor | | [address] [facility] | Interrogation | | | | | [place], | (Primary Dx); | | | | | [place] [address] | Presence of | | | | | [phone] | permanent cardiac | | | | [...]
--- OUTSIDE RECORDS SUMMARY | ~2019-10-27 | XMS | Encounter Summary ---
Demographics + + + | Address | [address] | | | [place] [address] | + + + | Home Phone [...] Providers + +------+ + | Care Laborer Chemical Processing Name | Role | Phone | [...] | 02/16/ | Telephone | [facility] | Silvia, | Other (concerned | | 2012 | | CARDIOLOGY [address] | PARISA [address] | about palpitations) | | | | [place], | [place], | | | | | [place] [address] | [place] [address] | | | | | [phone] | [phone] | | | | | | | [...] W | | | | | | [place], | | | | | | [place] [address] | | | | | | [phone] | | | | | | | | +--------+ + + + + | 11/20/ | Implant | Cardiology | Daljit Singletary, | Remote Device | | 2018 | Monitor | | [address] [facility] | Interrogation | | | | | [place], | (Primary Dx); | | | | | [place] [address] | Presence of | | | | | [phone] | permanent cardiac | | | | [...]
--- OUTSIDE RECORDS SUMMARY | ~2019-10-27 | XMS | Encounter Summary ---
Demographics + + + | Address | [address] | | | [place] [address] | + + + | Home Phone [...] Providers + +------+ + | Care Material Specialist Name | Role | Phone | [...] Refill | | 2012 | | [facility] | DO [address] | | | | | [address] | [place] | | | | | [place] | [address] | | | | | [address] | | | | | | [phone] | | | +--------+--------+ + + + [...] | | | | | | [place], | | | | | | [place] [address] | | | | | | [phone] | | | | | | | | +--------+ + + + + | 11/20/ | Implant | Cardiology | Daljit Singletary, | Remote Device | | 2018 | Monitor | | [address] [facility] | Interrogation | | | | | [place], | (Primary Dx); | | | | | [place] [address] | Presence of | | | | | [phone] | permanent cardiac | | | | [...]
--- OUTSIDE RECORDS SUMMARY | ~2019-10-27 | XMS | Encounter Summary ---
Demographics + + + | Address | [address] | | | [place] [address] | + + + | Home Phone [...] Providers + +------+ + | Care Application Integration Architect Name | Role | Phone | + +------+ + PCP | Unavailable | + +------+ + Encounter Details +--------+ + + + + | Date | Type | Department | Care Team | Description | +--------+ + + + + | 02/07/ | [facility] | [facility] | Unknown, | | | 1995 | Encounter | MED CTR XRAY [address] | MD Stefany | | | | | [place] | | | | | | [place] [address] | (Fax) | | | | | [phone] | | | +--------+ + + + [...] | | | | | | [place] [address] | | | | | | [phone] | | | | | | | | +--------+ + + + + | 11/20/ | Implant | Cardiology | Daljit Singletary, | Remote Device | | 2019 | Monitor | | [address] [facility] | Interrogation | | | | | [place], | (Primary Dx); | | | | | [place] [address] | Presence of | | | | | [phone] | permanent cardiac | | | | [...]
--- OUTSIDE RECORDS SUMMARY | ~2019-10-27 | XMS | Encounter Summary ---
Demographics + + + | Address | [address] | | | [place] [address] | + + + | Home Phone [...] Team Providers + +------+ + | Care Crib Attendant Name | Role | Phone | + +------+ + PCP | Unavailable | + +------+ + Encounter Details +--------+ + + + + | Date | Type | Department | Care Team | Description | +--------+ + + + + | 06/13/ | [facility] | [facility] | Daljit Singletary, | | | 2008 | Encounter | MED CTR LABORATORY | [address] | | | | | [address] [place] | [address] [place], | | | | | [place] | [place] [address] | | | | | [address] | [phone] | | | | | [phone] | | | +--------+ + + + [...] | | | | | [place], | | | | | | [place] [address] | | | | | | [phone] | | | | | | | | +--------+ + + + + | 11/20/ | Implant | Cardiology | Daljit Singletary, | Remote Device | | 2019 | Monitor | | MD [address] | Interrogation | | | | | [place], | (Primary Dx); | | | | | [place] [address] | Presence of | | | | | [phone] | permanent cardiac | | | | [...]
--- OUTSIDE RECORDS SUMMARY | ~2019-10-27 | XMS | Encounter Summary ---
Demographics + + + | Address | [address] | | | [place] [address] | + + + | Home Phone [...] Providers + +------+ + | Care Chip Mixing Machine Operator Name | Role | Phone [...] 101 | | | | | [address] [place], [place] | [place] [address] | | | | | [address] | [phone] | | | | | [phone] | | | +--------+--------+ + + + [...] | | | | | | [place] [address] | | | | | | [phone] | | | | | | | | +--------+ + + + + | 11/20/ | Implant | Cardiology | Daljit Singletary, | Remote Device | | 2018 | Monitor | | MD [address] | Interrogation | | | | | [place], | (Primary Dx); | | | | | [place] [address] | Presence of | | | | | [phone] | permanent cardiac | | | | [...]
--- OUTSIDE RECORDS SUMMARY | ~2019-10-27 | XMS | Encounter Summary ---
Demographics + + + | Address | [address] | | | [place] [address] | + + + | Home Phone [...] Providers + +------+ + | Care Leather Grainer Name | Role | Phone | + +------+ + | Kirk French MD | PCP | | + +------+ + Encounter Details +--------+ + + + + | Date | Type | Department | Care Team | Description | +--------+ + + + + | 08/10/ | Orders Only | [facility]ESS[facility] KIM | [place], | Mixed hyperlipidemia | | 2016 | | MED CTR LABORATORY | [place] [address] | (Primary Dx) | | | | [address] [place] | [place], | | | | | [place] | [place] [address] | | | | | [address] | [phone] | | | | | [phone] | | | +--------+ + + + [...] | | | | | [place], | | | | | | [place] [address] | | | | | | [phone] | | | | | | | | +--------+ + + + + | 11/20/ | Implant | Cardiology | Daljit Singletary, | Remote Device | | 2018 | Monitor | | [place] [facility] | Interrogation | | | | | [place], | (Primary Dx); | | | | | [place] [address] | Presence of | | | | | [phone] | permanent cardiac | | | | [...]
--- OUTSIDE RECORDS SUMMARY | ~2019-10-27 | XMS | Encounter Summary ---
Demographics + + + | Address | [address] | | | [place] [address] | + + + | Home Phone [...] Team Providers + +------+ + | Care Undercover Operator Name | Role | Phone | [...] + | 06/23/ | Office | [facility] | [place], | Ascending thoracic | | 2016 | Visit | CARDIOLOGY [address] | PARISA [place] [address] | aortic aneurysm | | | | [place], | [place], | ([facility]) (Primary Dx); | | | | [place] [address] | [place] [address] | Coronary artery | | | | [phone] | [phone] | disease involving | | | | | | [place] coronary | | | | | | artery of [place] | | | | | [...] in office in 6 months. hgabby, Janeen, FLYING I INSTRUCTOR - 06/23/2016 12:45 PM PDT PATIENT NAME: Moe Sanchez : 1960: AGE: 56 y.o. PRIMARY CARE: Kirk French MD OUTPATIENT FOLLOW UP VISIT Date of Service: 06/23/2016 HISTORY OF PRESENT ILLNESS: Moe Sanchez is a 56 y.o. male with a history of non-critical coronary artery d isease involving [place] coronary artery of [place] heart without angina pectoris, essential h [...] of [place] heart without angina pectoris Cannabis abuse, [...] mouth every evening 90 tablet 3 [facility] [...] 3rd dose, call 911 100 tablet 3 Springer-3 Fatty Acids (SALMON OIL-1000 PO) CAPS, one [...] ASSESSMENT: 1. Non-critical Coronary artery disease involving [place] coronary artery of [place] [facility] angina pectoris: A. Normal exercise sestamibi [...] pain. He is in class I-II of [place] [employer] n functional class. There are [...] ventricular arrhythmia performed by Dr. Gambino at [facility] on 01/30/2013. Patient had spontaneous PVCs [...] to go back in 3 days to [place] for an attempt of ablation under general [...] this chart may have been created with [employer] voice recognition software. Occasi onal wrong-word [...] W | | | | | | [place], | | | | | | [place] [address] | | | | | | [phone] | | | | | | | | +--------+ + + + + | 11/20/ | Implant | Cardiology | Daljit Singletary, | Remote Device | | 2018 | Monitor | | [address] [facility] | Interrogation | | | | | [place], | (Primary Dx); | | | | | [place] [address] | Presence of | | | | | [phone] | permanent cardiac | | | | [...] the | | | | PDT | [place] coronary | results section. | | | | | artery of [place] | | | | | [...] MD | | | | | | ([id number]) on 06/23/2016 | | | | | [...]
--- OUTSIDE RECORDS SUMMARY | ~2019-10-27 | XMS | Encounter Summary ---
Demographics + + + | Address | [address] | | | [place] [address] | + + + | Home Phone [...] Team Providers + +------+ + | Care Aegis Operations Specialist Name | Role | Phone | + +------+ + | Kirk French MD | PCP | | + +------+ + Encounter Details +--------+ + + + + | Date | Type | Department | Care Team | Description | +--------+ + + + + | 01/05/ | Hospital | [facility] | Emmanuel Daniel MD | Functional diarrhea | | 2019 | Encounter | MED CTR MP INTRA OP | [address], [place] | (Primary Dx); Weight | | | | [address] | [address] [place], [place] | loss | | | | [place], [place] | [address] | | | | | [address] | | | | | | [phone] | | | +--------+ + + + [...] for a few hours. Date Last Reviewed: 09/22/201619996555-0550 [employer]. [address] [place] [address], [place] [address]. All righ ts reserved. This information is [...] vomiting, or vomiting blood Date Last Reviewed: 05/22/201619998745-1482 [employer]. [address] [place] [address]. All [facility] specialty hospital[facility] ts reserved. This information is not [...] You can't be awakened Date Last Reviewed: 09/08/201619992873-5520 [employer]. [address] [place] [address], [place] [address]. All righ ts reserved. This information is [...] + + + +---------+ + + | Monon-3 Fatty | CAPS, one capsule by | [...] W | | | | | | [place], | | | | | | [place] [address] | | | | | | [phone] | | | | | | | | +--------+ + + + + | 11/20/ | Implant | Cardiology | Daljit Singletary, | Remote Device | | 2018 | Monitor | | MD [address] | Interrogation | | | | | [place], | (Primary Dx); | | | | | [place] [address] | Presence of | | | | | [phone] | permanent cardiac | | | | [...] [address], | REFERENCE LAB | | [place], [place] [id number] Strategic Sourcing Manager: Miguel Galarza MD, Phone: | [facility] | | [phone] | | + + + + + + + + | Performing | Address | City/State/Zipcode | Phone Number | | Organization | | | | + + + + + | REFERENCE LAB | [address] | [place] [address] | [phone] | | [facility] | Drive [...] [address], | REFERENCE LAB | | [place], [place] [id number] Strategic Sourcing Manager: Miguel Galarza MD, Phone: | [facility] | | [phone] | | + + + + + + + + | Performing | Address | City/State/Zipcode | Phone Number | | Organization | | | | + + + + + | REFERENCE LAB | [address] [facility] | [place] [address] | [phone] | | AR[facility] CASTANON | [facility] | | | + + [...] [address] | [place] | [phone] | | [facility] | | [address] | | | - LABORATORY | | [...] Negative for toxigenic | | [facility] | | | GDH Antigen [...] [address] | [place] | [phone] | | [facility] | | [address] | | | - LABORATORY | | [...] | | | dium | | | [facility] | | | Antigen | [...] [address] | [place] | [phone] | | [facility] | | [address] | | | - LABORATORY | | [...] [address] | [place] | [phone] | | [facility] | | [address] | | | - LABORATORY | | [...] [address] | [place] | [phone] | | [facility] | | [address] | | | - LABORATORY | | [...] ST. | [address] | [place], [place] | [phone] | | [facility] | | [address] | | | - LABORATORY | | | | + + + + + BERNARDD (01/05/2019 8:36 AM PST) + + | Specimen | + + | | + + + + -+ | Narrative | Performed At | + + -+ | | [facility] | | GastroenterologyPatient Name: Moe Venegas Date: | PROVATION | | 01/05/2019 8:36 AMMRN: [id number] #: [id number] of : | | | 9Admit Type: AmbulatoryAge: 58Room: [facility] 01Gender: MaleNote | | | Status: FinalizedAttending MD: Emmanuel Daniel , [facility]ENTERrocedure: | | | Upper GI endoscopyIndications: Diarrhea, Weight | | | lossProviders: Emmanuel Daniel MD, Heidi An, | | | RN, Kim Hicks, Product Sales Representative, | | | Jarett Barakat MD [...] physician, the nurse, the anesthesiologist and the pharmaceutical laboratory technician | | | in the endoscopy [...] | | Imaging was performed using the [employer] | | | Endoscopy (FICE) [...] | | | results in 1 week.Emmanuel Danile MD01/05/2019 9:20:28 AMThis report | | | has been signed electronically.Number of Addenda: 0Note Initiated On: | | | 01/05/2019 8:36 AMTotal Procedure Duration: 0 hours 5 minutes 53 | | | seconds Scope In: 8:43:57 AMScope Out: 8:49:50 AM [facility]. | | | [facility], [address] [place] [address] | | | [phone] | | |Recommendation: | | | - [...] |Scope Out: 8:49:50 AM | | | [facility], [address] [facility], [place], [place] | | | [address] | | + + -+ + +---------+ [...] | PROVATION | | 01/05/2019 8:36 AMMRN: [id number] #: [id number] of : | | | 9Admit Type: AmbulatoryAge: 58Room: [facility] 01Gender: MaleNote | | | Status: FinalizedAttending MD: Emmanuel Daniel , [facility]ENTERrocedure: | | | ColonoscopyIndications: Clinically significant diarrhea of | | | unexplained origin, Weight lossProviders: | | | Emmanuel Daniel MD, Heidi An RN, [place] | | | Fiorella Hicks, Product Sales Representative, Jarett Sapna | | | MD Roshni [...] | | | the anesthesiologist and the pharmaceutical laboratory technician in the endoscopy suite. | [...] AMScope Out: | | | 9:06:28 AM [facility], [address] [place] [address], | | | [place] [address] | | | - Discharge patient to [...] |Scope Out: 9:06:28 AM | | | [facility], [address] [place] [address], [place], [place] | | | [address] | | + + -+ + +---------+ [...] | | | (atherosclerotic heart disease of [place] coronary artery without | | | [...] chronic or | | | microscopic colitis. BES:[facility]:C3NR GROSS DESCRIPTION: A. The | | | specimen, labeled "[place], duodenal biopsy" is received in formalin | | | and consists of seven 0.1-0.5 cm lin fragments. Entirely submitted in | | | (A1). B. The specimen, labeled "[place], right colon" is received | | | in formalin and consists of six 0.2-0.3 cm lin fragments. Entirely | | | submitted in (B1). C. The specimen, labeled "[place], left colon" | | | is received in formalin and consists of six 0.2-0.3 cm lin-pink | | | fragments. Entirely submitted in (C1). am:AMB:portillo PERFORMING | | | LABORATORY: The technical component was performed by [facility] | | | [facility], [address] [place] [address] (Director Medicare Sales: | | | Kailey [place] MD; CLIA# [id number]). Professional interpretation was | | | performed by [facility], [facility], [address] | | | [place] [address] (Director Medicare Sales: [place] | Shanique Dao M.D.; LAYNE#: [id number]). Diagnostician: [place] | | Sylwia WINKLER [...] ONCE PRN, Wheezing, | | | Starting [facility] 01/05/19 at 0924, | | | [...] ONCE | | | PRN, Nausea, Starting [facility] 01/05/19 | | | at 0924, For 1 dose, | | | Recovery/Phase I | | + +---+ | | | + +---+ documented in this encounter
--- OUTSIDE RECORDS SUMMARY | ~2019-10-27 | XMS | Encounter Summary ---
Demographics + + + | Address | [address] | | | [place] [address] | + + + | Home Phone [...] Providers + +------+ + | Care Rubber Mill Operator Name | Role | Phone | + +------+ + | Kirk French MD | PCP | | + +------+ + Encounter Details +--------+ + + + + | Date | Type | Department | Care Team | Description | +--------+ + + + + | 07/21/ | Hospital | [facility] | Daljit Singletary, | | | 2018 | Encounter | MED CTR NUCLEAR | MD [address] | | | | | MEDICINE [address] | [address] [place], | | | | | [place] | [place] [address] | | | | | [place] [address] | [phone] | | | | | [phone] | | | +--------+ + + + [...] + + + +---------+ + + | [place]-3 Fatty | CAPS, one capsule by [...] | | | | | | [place] [address] | | | | | | [phone] | | | | | | | | +--------+ + + + + | 11/20/ | Implant | Cardiology | Daljit Singletary, | Remote Device | | 2019 | Monitor | | [address] [facility] | Interrogation | | | | | [place], | (Primary Dx); | | | | | [place] [address] | Presence of | | | | | [phone] | permanent cardiac | | | | [...]
--- OUTSIDE RECORDS SUMMARY | ~2019-10-27 | XMS | Encounter Summary ---
Demographics + + + | Address | [address] | | | [place] [address] | + + + | Home Phone [...] + +------+ + | Care Continuous Improvement Coordinator Name | Role | Phone | + +------+ + | Michael Amanda DO | PCP | | + +------+ + Reason for Visit + + + | Reason | Comments | + + + | Follow-up | One month with [facility] 12/25/13 | + + + | [...] (Primary Dx); Chest | | | | [place], | [place], | pain; Coronary | | | | [place] [address] | [place] [address] | artery disease; | | | | [phone] | [phone] | Hyperlipidemia; | | | | | [...] documented in this encounter Progress Notes JamesCoryPARISA villrareal - 01/29/2014 2:08 PM PDTFormatting of this [...] week to the emergency room at [facility] with a baljit st pain [...] needed for Chest pain. 25 tablet 12 [place]-3 Fatty Acids (SALMON OIL-1000 PO) CAPS, one [...] was seen on the emergency room at [place] on 01/26/2014, he was ruled out A [...] pain. He is in class II of [place] 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 There [...] to go back in 3 days to [place] for an attempt of ablation under general [...] symptoms. He is in class II of [place] 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 There [...] made to ensure accuracy; however, inadvertent computerized naphthol soaping machine operator errors may be pre sent. [...] | | | | | | [place] [address] | | | | | | [phone] | | | | | | | | +--------+ + + + + | 11/20/ | Implant | Cardiology | Daljit Singletary, | Remote Device | | 2018 | Monitor | | [address] [facility] [place] | Interrogation | | | | | [place], | (Primary Dx); | | | | | [place] [address] | Presence of | | | | | [phone] | permanent cardiac | | | | [...]
--- OUTSIDE RECORDS SUMMARY | ~2019-10-27 | XMS | Encounter Summary ---
Demographics + + + | Address | [address] | | | [place] [address] | + + + | Home Phone [...] Providers + +------+ + | Care Learning Facilitator Name | Role | Phone | [...] | | PVCs | PAR[place] | [address] | | | | | Procedures | [address] | [address] | | | | | [place] OFFICE | [place] | [place] | | | | | CONSULTATION | [place], | [address] Phone: | | | | | NEW/ESTAB | [place] | [phone] | | | | | PATIENT 40 | [address] | Fax: | | | | | MIN | Phone: | [phone] | | | | | | [phone] | | | | | | | Fax: | | | | | | | [phone] | | +--------+--------+ + + + + Encounter Details +--------+---------+ + + + | Date | Type | Department | Care Team | Description | +--------+---------+ + + + | 11/30/ | Office | [facility] | Jay Gambino MD | Symptomatic PVCs | | 2015 | Visit | [facility]IOLOGY [place] | [address] | (Primary Dx) | | | | HI[address] | [address] [place], | | | | | [facility] [address] [place] | [place] [address] | | | | | [address] | [phone] | | | | | [phone] | | | +--------+---------+ + + + [...] Gambino MD - 11/30/2014 5:37 PM PST [facility] [address] [place] [address] Patient Name: Moe Sanchez Date: 1960 Date [...] 1 tablet under the tongue every 5 ulz marcos as needed for Chest pain. [place]-3 Fatty Acids (SALMON OIL-1000 PO) CAPS, one [...] (1980 1984); Hypoglycemia; Drug addiction in remission ([facility]); HTN (hypertension); Hypercholesterolemia; Bipolar 1 disorder ( [...] not detected in the editing p [employer]. Should you have any questions or concerns, [...] | | | | | | [place], | | | | | | [place] [address] | | | | | | [phone] | | | | | | | | +--------+ + + + + | 11/20/ | Implant | Cardiology | Daljit Singletary, | Remote Device | | 2018 | Monitor | | MD [address] | Interrogation | | | | | [place], | (Primary Dx); | | | | | [place] [address] | Presence of | | | | | [phone] | permanent cardiac | | | | [...]
--- OUTSIDE RECORDS SUMMARY | ~2019-10-27 | XMS | Encounter Summary ---
Demographics + + + | Address | [address] | | | [place] [address] | + + + | Home Phone [...] Providers + +------+ + | Care Frozen Food Department Manager Name | Role | Phone [...] [place] | | | | | | [address] | | | | | | [phone] | | | | | | | [...] | | | | | | [place] [address] | | | | | | [phone] | | | | | | | | +--------+ + + + + | 11/20/ | Implant | Cardiology | Daljit Singletary, | Remote Device | | 2018 | Monitor | | [address] [facility] | Interrogation | | | | | [place], | (Primary Dx); | | | | | [place] [address] | Presence of | | | | | [phone] | permanent cardiac | | | | [...]
--- OUTSIDE RECORDS SUMMARY | ~2019-10-27 | XMS | Encounter Summary ---
Demographics + + + | Address | [address] | | | [place] [address] | + + + | Home Phone [...] + + | 06/06/ | [facility] | [facility] | Silvia, | Essential | | 2019 | Visit | CARDIOLOGY [address] | PARISA [place] [address] | hypertension | | | | [place], | [place], | (Primary Dx); | | | | [place] [address] | [place] [address] | Sinoatrial node | | | | [phone] | [phone] | dysfunction (HCC) | | | | | | with symptomatic | | | | | | bradycardia; | | | | | | Symptomatic PVCs; | | | | | | Tachycardia; | | | | | | Coronary artery | | | | | | disease involving | | | | | | [place] coronary | | | | | | artery of [place] | | | | | | heart [...] encounter Patient Instructions Patient Instructions Julia Allen, Merchandise Adjustment Clerk - 06/06/2019 2:15 PM PDT1. Take a [...] of -critical coronary artery dise ase involving [place] coronary artery of [place] heart without angina pectoris, essential hype rtension, [...] was seen in the emergency department at [facility] in [place] due to chest pain, no medication changes at that time. On 06/02/2019 [facility] with [facility] pain, irregular heart bet [...] 3RD DOSE, CALL 911 100 tablet 3 [place]-3 Fatty Acids (SALMON OIL-1000 PO) CAPS, one [...] RESULTS reviewed during visit today primarily from [facility]: LIPID Lab Results Component Value [...] BNP 48 06/02/2019 I reviewed records from [facility] for emergency department visit o n 06/02/2019 which is summarized in the HPI. RESULTS- I reviewed reports from [facility]: Ct Abdomen Pelvis W Contrast Result [...] 1. Non-critical Coronary artery disease involving [place] coronary artery of [place] heart [facility] angina pectoris: A.Normal exercise sestamibi stress [...] performed by Dr Juan Diego Gambino at [facility] on 01/30/2013.Patient had spontaneous PVC'sfr om [...] to go back in 3 days to [place] for an attempt of ablation under general [...] a normal stable device function. Estimated remaining [facility] taylor longevity is 3.5 years. D. [...] visit, or sooner with concerns. Julia Clemente, Merchandise Adjustment Clerk am acting as a scribe on behalf of, and in the presenc e of PARISA Lomas. - Reji Church 06/06/2019 15:10 Janeen Clemente ARNP, personally performed the services described in this documentati on, as scribed in my presence and it is both accurate and complete. -PARISA Lomas 06/06/2019 Portions of this chart may have been created with [employer] voice recognition software. Occasi onal wrong-word or [...] | | | | | | [place] [address] | | | | | | [phone] | | | | | | | | +--------+ + + + + | 11/20/ | Implant | Cardiology | Sydni Singletary, | Remote Device | | 2018 | Monitor | | MD [address] [place] | Interrogation | | | | | [address] [place], | (Primary Dx); | | | | | [place] [address] | Presence of | | | | | [phone] | permanent cardiac | | | | [...] MD | | | | | | ([id number]) on 06/06/2019 | | | | | [...] heiden heart without | | angina pectoris | + + | Syncope, unspecified syncope type | + + | Ascending thoracic aortic aneurysm (HCC) Thoracic aneurysm without mention of rupture | + + | Hyperlipidemia, mixed Mixed hyperlipidemia | + + documented in this encounter
--- OUTSIDE RECORDS SUMMARY | ~2019-10-27 | XMS | Encounter Summary ---
Demographics + + + | Address | [address] | | | [place] [address] | + + + | Home Phone [...] [place] | | | | | | [address] | | | | | | [phone] | | | +--------+ + + + [...] W | | | | | | [place], | | | | | | [place] [address] | | | | | | [phone] | | | | | | | | +--------+ + + + + | 11/20/ | Implant | Cardiology | Daljit Singletary, | Remote Device | | 2018 | Monitor | | [address] [facility] | Interrogation | | | | | [place], | (Primary Dx); | | | | | [place] [address] | Presence of | | | | | [phone] | permanent cardiac | | | | [...]
--- OUTSIDE RECORDS SUMMARY | ~2019-10-27 | XMS | Encounter Summary ---
Demographics + + + | Address | [address] | | | [place] [address] | + + + | Home Phone [...] Team Providers + +------+ + | Care Florist Supplies Salesperson Name | Role | Phone | [...] W | Dx) | | | | [place] [address] | [address] [place] | | | | | [place], [place] | [place] [address] | | | | | [address] | [phone] | | | | | [phone] | | | +--------+ + + + [...] | | | | | | [place] [address] | | | | | | [phone] | | | | | | | | +--------+ + + + + | 11/20/ | Implant | Cardiology | Daljit Singletary, | Remote Device | | 2019 | Monitor | | MD [address] [facility] | Interrogation | | | | | [place], | (Primary Dx); | | | | | [place] [address] | Presence of | | | | | [phone] | permanent cardiac | | | | [...] W?MRN: | | | | | | [id number] | | | [id number] | | | his | | | [...] | | | ent/60 | | | [id number] | | | -5586- | | | [...] | | | St. | | | [place] | | | y H. | | [...] | | | St. | | | [place] | | | y H. | | [...] | | | St. | | | [place] | | | y H. | | [...] | | | St. | | | [place] | | | y H. | | [...] | | | St. | | | [place] | | | y | | | [...] | | | ext. | | | [phone] | | | or go | | [...] | [facility] | [address] | [place] | [phone] | | [facility] | | [address] | | | - LABORATORY | | [...] | [address] | [address] | [place] | [phone] | | [facility] | | [address] | | | - LABORATORY | | [...] | | MEDICAL | | | | mL/min/1.89x6Plyq than | | CENTER - | | [...] [address] | [place] | [phone] | | [facility] | | [address] | | | - LABORATORY | | [...] [address] | [place] | [phone] | | [facility] | | [address] | | | - LABORATORY | | | | + + + + + documented in this encounter Visit Diagnoses + + | Diagnosis | + + | Bronchitis - Primary Bronchitis, not specified as acute or chronic | + + documented in this encounter"
--- OUTSIDE RECORDS SUMMARY | ~2019-10-27 | XMS | Encounter Summary ---
Demographics + + + | Address | [address] | | | [place] [address] | + + + | Home Phone [...] Providers + +------+ + | Care Software Administrator Name | Role | Phone | [...] W | reprogramming/check | | | | [address] [place], | [address] [place] | DO NOT DELETE | | | | [place] [address] | [place] [address] | (Primary Dx); | | | | [phone] | [phone] | Pacemaker - | | | | [...] | | | | | | [place] [address] | | | | | | [phone] | | | | | | | | +--------+ + + + + | 11/20/ | Implant | Cardiology | Daljit Singletary, | Remote Device | | 2018 | Monitor | | MD Chiquis [address] | Interrogation | | | | | [place], | (Primary Dx); | | | | | [place] [address] | Presence of | | | | | [phone] | permanent cardiac | | | | [...]
--- OUTSIDE RECORDS SUMMARY | ~2019-10-27 | XMS | Encounter Summary ---
Demographics + + + | Address | [address] | | | [place] [address] | + + + | Home Phone [...] Providers + +------+ + | Care Director Maternal Child Name | Role | Phone | [...] [address] | | | | [place], | [place], | | | | | [place] [address] | [place] [address] | | | | | [phone] | [phone] | | | | | | | [...] W | | | | | | [place], | | | | | | [place] [address] | | | | | | [phone] | | | | | | | | +--------+ + + + + | 11/20/ | Implant | Cardiology | Daljit Singletary, | Remote Device | | 2018 | Monitor | | [address] [facility] | Interrogation | | | | | [place], | (Primary Dx); | | | | | [place] [address] | Presence of | | | | | [phone] | permanent cardiac | | | | [...]
--- OUTSIDE RECORDS SUMMARY | ~2019-10-27 | XMS | Encounter Summary ---
Demographics + + + | Address | [address] | | | [place] [address] | + + + | Home Phone [...] Providers + +------+ + | Care Business Reporting Developer Name | Role | Phone [...] | on | GASTROENTEROLOGY | [address] [place] | | | | | [address] [place] | [address] [place], [place] | | | | | [address] [place], [place] | [address] | | | | | [address] | | | | | | [phone] | | | +--------+ + + + [...] | | | | | | [place] [address] | | | | | | [phone] | | | | | | | | +--------+ + + + + | 11/20/ | Implant | Cardiology | Daljit Singletary, | Remote Device | 2018 | Monitor | | [facility] | Interrogation | | | | | [address] [place], | (Primary Dx); | | | | | [place] [address] | Presence of | | | | | [phone] | permanent cardiac | | | | [...]
--- OUTSIDE RECORDS SUMMARY | ~2019-10-27 | XMS | Encounter Summary ---
Demographics + + + | Address | [address] | | | [place] [address] | + + + | Home Phone [...] Providers + +------+ + | Care Logistics Solution Manager Name | Role | Phone | + +------+ + PCP | Unavailable | + +------+ + Encounter Details +--------+ + + + + | Date | Type | Department | Care Team | Description | +--------+ + + + + | 05/24/ | Hospital | [facility] | Chi Fang | Unspecified Chest | | 2008 - | Encounter | [facility] | MD Kelsey [address] | Pain | | | | CLINICAL DECISION | [place] HERNANDEZ | | | 05/25/ | | [address] | [address] | | | 2008 | | [place], [place] | [phone] | | | | | [address] | | | | | | [phone] | | | +--------+ + + + [...] | | | | | | [place], | | | | | | [place] [address] | | | | | | [phone] | | | | | | | | +--------+ + + + + | 11/20/ | Implant | Cardiology | Daljit Singletary, | Remote Device | | 2018 | Monitor | | [address] [place] | Interrogation | | | | | [place], | (Primary Dx); | | | | | [place] [address] | Presence of | | | | | [phone] | permanent cardiac | | | | [...] Performed At | + + + | [id number] | | | Page 1 RADIOLOGY | | | CDU 19711/ | | | [facility] | | | CENTER NAME: [place] [address] | | | | | | | | | DATE OF : 1960 ORDER NUMBER: | | | [id number] EXAM DATE/TIME: 05/25/2009 08:00 A ORDERING PHYSICIAN: | | | CHI FANG ORDER DETAIL: [id number] / / [facility] EXAM | | | DESCRIPTION: [place] [...] | | administration of 14.9 mCi of joaftbpekb-93o-abqqlub Myoview. Stress | | | images postinjection [...] | | | images. 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 | | [...] | A | | P | | [id number]/[id number]/ | | cc: ANGELA MARADIAGA MD | | FEMI MARIE MD | | CHI FANG MD | | AMY BANEGAS DO | + + ECHO Complete (05/25/2009 7:50 AM PDT) + + | Specimen | + + | | + + + + + | Narrative | Performed At | + + + | [id number] | | | Page 1 ECHO [facility] NAME: | | | [place] [address] MEDICAL RECORD #: | | | [id number] | | | DATE OF : 1960 ORDER | | | NUMBER: [id number] EXAM DATE/TIME: 05/25/2009 07:34 PERFORMING | | [...] Excursion: | | | 1.89 cm E-F Burke: 0.08 m/s HR: 43.51 BPM AV maxP.11 [...] | | | 0.33 m/s TV Dec Burke: 1.73 m/s2 TV Dec Time: 344.24 ms TV | | | E Bravo: 0.59 m/s TV E/A Ratio: 1.80 TV maxP.40 mmHg TV | | | meanP.44 mmHg TV Vmax: 0.59 m/s TV Vmean: 0.30 m/s TV | | | VTI: 22.88 cm Drier Tender: ANTHONY Authenticated by: Edwardo Tee | | | Carlos WINKLER Report Date/Time: 05-25-2009 10:19:52 | | + + + + + | Procedure Note | + + | Kalpesh Brown Conversion - 07/17/2019 2:13 AM [facility] [id number] | | Page [address] [place] [address] NAME: [place] | | [address] : ACCOUNT #: | | [id number]: DATE OF : 1960ORDER NUMBER: | | [id number] DATE/TIME: 05/25/2009 07:34PERFORMING PHYSICIAN: Edwardo Gonzalez | [...] mlLAESV Index (A-L): 26.03 ml/m2LAAs A2C: 14.93 or1FWTCW A-L | | A2C: 44.50 mlLALs A2C: 4.25 cmLAAs A4C: 18.42 nx2MSQDZ A-L A4C: 55.79 mlLALs | | A4C: 5.16 cmAo Diam: 3.91 cmAV Cusp: 2.23 cmLA Diam: 3.79 cmLA/Ao: 0.96%FS: | | 43.37 %EDV(Teich): 146.19 mlEF(Teich): 73.99 %ESV(Teich): 38.01 mlIVSd: 1.57 | | cmIVSs: 1.79 cmLVIDd: 5.48 cmLVIDs: 3.10 cmLVPWd: 1.32 cmLVPWs: 1.79 | | cmSV(Teich): 108.18 mlD-E Excursion: 1.89 cmE-F Burke: 0.08 m/sHR: 43.51 BPMAV | | maxP.11 mmHgAV meanP.33 mmHgAV Vmax: 1.74 m/Zabrina Vmean: 1.06 m/Zabrina VTI: | | 35.51 cmAVA Vmax: 2.77 cm2AVA (VTI): 2.54 xv0IRVP Dopp: 3.00 l/ugoz9UIFX Dopp: | | 6.33 l/minHR: 70.25 BPMLVOT maxP.78 mmHgLVOT meanP.02 mmHgLVSI Dopp: | | 42.76 ml/m2LVSV Dopp: 90.23 mlLVOT Vmax: 1.30 m/sLVOT Vmean: 0.80 m/sLVOT VTI: | | 24.35 cmMV A Bravo: 0.70 m/sMV DecT: 242.46 msMV E Bravo: 0.91 m/sMV E/A Ratio: | | 1.31MV maxP.40 mmHgMV meanP.82 mmHgMV Vmax: 0.92 m/sMV Vmean: 0.37 m/sMV | | VTI: 26.47 cmMVA (VTI): 3.40 qh9Jgxazj e': 0.08 m/sSeptal E/e': 11.24HR: | | 60.55 BPMPV maxP.04 mmHgPV meanP.39 mmHgPV Vmax: 0.87 m/sPV Vmean: 0.55 | | m/sPV VTI: 19.09 cmRAP: 5 mmHgRVSP: 21.72 mmHgTR maxP.72 mmHgTR Vmax: | | 2.04 m/sTV A Bravo: 0.33 m/sTV Dec Burke: 1.73 m/s2TV Dec Time: 344.24 msTV E Bravo: | | 0.59 m/sTV E/A Ratio: 1.80TV maxP.40 mmHgTV meanP.44 mmHgTV Vmax: 0.59 | | m/sTV Vmean: 0.30 m/sTV VTI: 22.88 cm Drier Tender: KVWAuthenticated by: Edwardo Tee | | Carlos [...] | |D-E Excursion: 1.89 cm | |E-F Burke: 0.08 m/s | |HR: 43.51 BPM | [...] A Bravo: 0.33 m/s | |TV Dec Burke: 1.73 m/s2 | |TV Dec Time: 344.24 ms | |TV E Bravo: 0.59 m/s | |TV E/A Ratio: 1.80 | |TV maxP.40 mmHg | |TV meanP.44 mmHg | |TV Vmax: 0.59 m/s | |TV Vmean: 0.30 m/s | |TV VTI: 22.88 cm | | | |Drier Tender: KVW | |Authenticated by: Edwardo Gonzalez MD | |Report Date/Time: 05-25-2009 10:19:52 | + + CT Head wo Contrast (05/24/2009 12:58 PM PDT) + + | Specimen | + + | | + + + + + | Narrative | Performed At | + + + | [id number] | | | Page 1 RADIOLOGY | | | CDU 33397/ | | | [facility] | | | CENTER NAME: [place] [address] | | | | | | | | | DATE OF : 1960 ORDER NUMBER: | | | [id number] EXAM DATE/TIME: 05/24/2009 12:47 P ORDERING PHYSICIAN: [...] | | asymmetrically dense vessel about the wainwright of Pearson. No | | | hydrocephalus. [...] 08:45 P P P | | | [facility]/tp/[id number]/ cc: MD NAGELA AVENDAÑO MD | | | MD AMY HAM DO | | + + + + + | Procedure Note | + + | Kalpesh Brown Conversion - 07/17/2019 2:13 AM PDT | | [id number] Page 1 | | RADIOLOGY CDU 43055/ | | OPO | | [facility] NAME: PINA GAY | | [place] [address] | | | | DATE OF : 1960 | | | | ORDER NUMBER: [id number] | | EXAM DATE/TIME: 05/24/2009 12:47 P [...] is no asymmetrically dense vessel about the wainwright of Pearson. No | | hydrocephalus. Some [...] P | | P | | [facility]/tp/[id number]/ | | cc: VINAY HILL MD | | ANGELA MARADIAGA MD | | FEMI MARIE MD | | AMY BANEGAS, DO | + + XR Chest 2 Vws (05/24/2009 11:31 AM PDT) + + | Specimen | + + | | + + + + + | Narrative | Performed At | + + + | [id number] | | | Page 1 RADIOLOGY | | | [facility] [address]/ | | | [facility] | | | CENTER NAME: [place] [address] | | | | | | | | | DATE OF : 1960 ORDER NUMBER: | | | [id number] EXAM DATE/TIME: 05/24/2009 11:19 A ORDERING PHYSICIAN: [...] DT: | | | 05/24/2009 05:38 P [id number]/[id number]/ cc: VINAY HILL MD | | | MD FEMI FOSS MD JOSEPH | | | P BASSAM DO | | + + + + + | Procedure Note | + + | Kalpesh Brown Conversion - 07/17/2019 2:13 AM PDT | | [id number] Page 1 | | RADIOLOGY CDU 69844/ | | OPO | | [facility] NAME: P[place] GAY | | [place] [address] | | | | DATE OF : 1960 | | | | ORDER NUMBER: [id number] | | EXAM DATE/TIME: 05/24/2009 11:19 A [...] P | | P | | [facility]//[id number]/ | | cc: VINAY HILL MD | | ANGELA MARADIAGA MD | | FEMI MARIE MD | | AMY BANEGAS DO | + + documented in this encounter Visit Diagnoses + + | Diagnosis | + + | Chest pain, unspecified | + + documented in this encounter"
--- OUTSIDE RECORDS SUMMARY | ~2019-10-27 | XMS | Encounter Summary ---
Demographics + + + | Address | [address] | | | [place] [address] | + + + | Home Phone [...] Providers + +------+ + | Care Video Editor Name | Role | Phone | + +------+ + | Kirk French MD | PCP | | + +------+ + Encounter Details +--------+ + + + + | Date | Type | Department | Care Team | Description | +--------+ + + + + | 10/25/ | Hospital | [facility] | Kirk French | Chronic pain | | 2017 | Encounter | MED CTR ULTRASOUND | MD Brea Eva LORA | disorder; Stomach | | | | [address] [place] | [address] | ache; Obesity, | | | | [place], [place] | [place] [address] | unspecified | | | | [address] | [phone] | classification, | | | | [phone] | | unspecified obesity | | | [...] + + + +---------+ + + | Scroggins-3 Fatty | CAPS, one capsule by | [...] | | | | | [place], | | | | | | [place] [address] | | | | | | [phone] | | | | | | | | +--------+ + + + + | 11/20/ | Implant | Cardiology | Daljit Singletary, | Remote Device | | 2018 | Monitor | | [address] [facility] | Interrogation | | | | | [facility] [place], | (Primary Dx); | | | | | [place] [address] | Presence of | | | | | [phone] | permanent cardiac | | | | [...]
--- OUTSIDE RECORDS SUMMARY | ~2019-10-27 | XMS | Encounter Summary ---
Demographics + + + | Address | [address] | | | [place] [address] | + + + | Home Phone [...] Team Providers + +------+ + | Care Pickling Drum Operator Name | Role | Phone | [...] | | | | | region | [address] | | | | | | Procedures | [address] | | | | | | CT | [place], [place] | | | | | | Myelography | [address] | | | | | | Lumbar Spine | Phone: | | | | | | | [phone] | | | | | | | Fax: | | | | | | | [phone] | | +--------+--------+ + + + + [...] | | | | | region | [address] | | | | | | Procedures | [address] | | | | | | CT | [place], [place] | | | | | | Myelography | [address] | | | | | | Lumbar Spine | Phone: | | | | | | | [phone] | | | | | | | Fax: | | | | | | | [phone] | | +--------+--------+ + + + + Encounter Details +--------+ + + + + | Date | Type | Department | Care Team | Description | +--------+ + + + + | 04/07/ | Hospital | [facility] | Pia Akhtar | Spinal stenosis, | | 2016 | Encounter | MED CTR [address] | MD [address] | lumbar region | | | | [place], | [address] | | | | | [place] [address] | [place] [address] | | | | | [phone] | [phone] | | | | | | | [...] + + + +---------+ + + | [place]-3 Fatty | CAPS, one capsule by [...] | | | | | | [place], | | | | | | [place] [address] | | | | | | [phone] | | | | | | | | +--------+ + + + + | 11/20/ | Implant | Cardiology | Daljit Singletary, | Remote Device | | 2018 | Monitor | | [address] [facility] | Interrogation | | | | | [facility], | (Primary Dx); | | | | | [place] [address] | Presence of | | | | | [phone] | permanent cardiac | | | | [...]
--- OUTSIDE RECORDS SUMMARY | ~2019-10-27 | XMS | Encounter Summary ---
Demographics + + + | Address | [address] | | | [place] [address] | + + + | Home Phone [...] + +------+ + | Care Director Global Development Name | Role | Phone | [...] | 10/09/ | Telephone | [facility] | Michael Amanda, | Other | | 2012 | | [facility]IC[facility] [place] | DO [address] | | | | | [address] | [place] | | | | | [place] | [address] | | | | | [address] | | | | | | [phone] | | | +--------+ + + + [...] | | | | | | [place], | | | | | | [place] [address] | | | | | | [phone] | | | | | | | | +--------+ + + + + | 11/20/ | Implant | Cardiology | Daljit Singletary, | Remote Device | | 2018 | Monitor | | MD [place] | Interrogation | | | | | [place], | (Primary Dx); | | | | | [place] [address] | Presence of | | | | | [phone] | permanent cardiac | | | | [...]
--- OUTSIDE RECORDS SUMMARY | ~2019-10-27 | XMS | Encounter Summary ---
Demographics + + + | Address | [address] | | | [place] [address] | + + + | Home Phone [...] + +------+ + | Care Social Media Editor Name | Role | Phone | [...] | | [address] | [place] [address] | | | | | [place] | [phone] | | | | | [address] | | | | | | [phone] | | | +--------+ + + + [...] | | | | | | [place], | | | | | | [place] [address] | | | | | | [phone] | | | | | | | | +--------+ + + + + | 11/20/ | Implant | Cardiology | Daljit Singletary, | Remote Device | | 2018 | Monitor | | MD [place]iqu[place] | Interrogation | | | | | [facility], | (Primary Dx); | | | | | [place] [address] | Presence of | | | | | [phone] | permanent cardiac | | | | [...]
--- OUTSIDE RECORDS SUMMARY | ~2019-10-27 | XMS | Encounter Summary ---
Demographics + + + | Address | [address] | | | [place] [address] | + + + | Home Phone [...] Team Providers + +------+ + | Care Cinder Block Maker Name | Role | Phone [...] | SR | | | | | [phone] | | | +--------+ + + + [...] | | | | | | [place] [address] | | | | | | [phone] | | | | | | | | +--------+ + + + + | 11/20/ | Implant | Cardiology | Daljit Singletary, | Remote Device | | 2019 | Monitor | | [place] [address] [facility] | Interrogation | | | | | [place], | (Primary Dx); | | | | | [place] [address] | Presence of | | | | | [phone] | permanent cardiac | | | | [...]
--- OUTSIDE RECORDS SUMMARY | ~2019-10-27 | XMS | Encounter Summary ---
Demographics + + + | Address | [address] | | | [place] [address] | + + + | Home Phone [...] Providers + +------+ + | Care Shelter Director Name | Role | Phone | [...] [address] [place] | | | | | [place], [place] | [address] | | | | | [address] | [place] [address] | | | | | [phone] | [phone] | | | | | | | [...] | | | | | | [place] [address] | | | | | | [phone] | | | | | | | | +--------+ + + + + | 11/20/ | Implant | Cardiology | Daljit Singletary, | Remote Device | | 2018 | Monitor | | [address] [place] | Interrogation | | | | | [facility], | (Primary Dx); | | | | | [place] [address] | Presence of | | | | | [phone] | permanent cardiac | | | | [...] [place] | | | | | | [address];[place] [address] | | | | + + + [...] | | | | | Blvd;[place] [address] | | | | + + + [...] | | at [facility];[address] [facility] | | | | | | [facility];[place] | | | | | | [address] | | | | + + + [...]
--- OUTSIDE RECORDS SUMMARY | ~2019-10-27 | XMS | Encounter Summary ---
Demographics + + + | Address | [address] | | | [place] [address] | + + + | Home Phone [...] Providers + +------+ + | Care Paint Stock Clerk Name | Role | Phone [...] | [address] [place] [place] | [place] [address] | | | | | [address] | [phone] | | | | | [phone] | | | +--------+ + + + [...] | | | | | | [place] [address] | | | | | | [phone] | | | | | | | | +--------+ + + + + | 11/20/ | Implant | Cardiology | Daljit Singletary, | Remote Device | | 2018 | Monitor | | MD [place] [place] | Interrogation | | | | | [facility], | (Primary Dx); | | | | | [place] [address] | Presence of | | | | | [phone] | permanent cardiac | | | | [...]
--- OUTSIDE RECORDS SUMMARY | ~2019-10-27 | XMS | Encounter Summary ---
Demographics + + + | Address | [address] | | | [place] [address] | + + + | Home Phone [...] Providers + +------+ + | Care Coffee Host Name | Role | Phone | [...] [address] | | | | | [place], | [place], | | | | | [place] [address] | [place] [address] | | | | | [phone] | [phone] | | | | | | | [...] | | | | | | [place] [address] | | | | | | [phone] | | | | | | | | +--------+ + + + + | 11/20/ | Implant | Cardiology | Daljit Singletary, | Remote Device | | 2018 | Monitor | | [address] [place] [address] | Interrogation | | | | | [address] [place], | (Primary Dx); | | | | | [place] [address] | Presence of | | | | | [phone] | permanent cardiac | | | | [...]
--- OUTSIDE RECORDS SUMMARY | ~2019-10-27 | XMS | Encounter Summary ---
Demographics + + + | Address | [address] | | | [place] [address] | + + + | Home Phone [...] Providers + +------+ + | Care Direct Chill Caster Name | Role | Phone | + +------+ + PCP | Unavailable | + +------+ + Encounter Details +--------+ + + + + | Date | Type | Department | Care Team | Description | +--------+ + + + + | 10/19/ | Hospital | [facility] | | | | 1992 | Encounter | MED CTR EMERGENCY | | | | | | CENTER [address] | | | | | | [place] | | | | | | [address] | | | | | | [phone] | | | +--------+ + + + [...] | | | | | | [place] [address] | | | | | | [phone] | | | | | | | | +--------+ + + + + | 11/20/ | Implant | Cardiology | Daljit Singletary, | Remote Device | | 2018 | Monitor | | [address] [facility] | Interrogation | | | | | [facility], | (Primary Dx); | | | | | [place] [address] | Presence of | | | | | [phone] | permanent cardiac | | | | [...]
--- OUTSIDE RECORDS SUMMARY | ~2019-10-27 | XMS | Encounter Summary ---
Demographics + + + | Address | [address] | | | [place] [address] | + + + | Home Phone [...] + +------+ + | Care Public Health Aides Teacher Name | Role | [...] | | | | of feces, | [place], [place] | [address] | | | | | unspecified | [address] [place] | [place], [place] | | | | | fecal | [place], [place] | [address] | | | | | incontinence | [address] | Phone: | | | | | type | Phone: | [phone] | | | | | Diarrhea, | [phone] | Fax: | | | | | unspecified | Fax: | [phone] | | | | | type | [phone] | | +--------+ + + + + [...] 2018 | | GASTROENTEROLOGY | [address] [place], [place] | | | | | [address] | [address] [place], [place] | | | | | [address] [place], [place] | [address] | | | | | [address] | | | | | | [phone] | | | +--------+ + + + [...] | | | | | | [place] [address] | | | | | | [phone] | | | | | | | | +--------+ + + + + | 11/20/ | Implant | Cardiology | Daljit Singletary, | Remote Device | | 2018 | Monitor | | [address] [place] | Interrogation | | | | | [address], | (Primary Dx); | | | | | [place] [address] | Presence of | | | | | [phone] | permanent cardiac | | | | [...]
--- OUTSIDE RECORDS SUMMARY | ~2019-10-27 | XMS | Encounter Summary ---
Demographics + + + | Address | [address] | | | [place] [address] | + + + | Home Phone [...] Providers + +------+ + | Care Post Splitter Name | Role | Phone | [...] [address] | | | | | [address] | [place] | | | | | [phone] | [address] | | | | | | | [...] | | | | | | [place] [address] | | | | | | [phone] | | | | | | | | +--------+ + + + + | 11/20/ | Implant | Cardiology | Daljit Singletary, | Remote Device | | 2018 | Monitor | | MD [facility] | Interrogation | | | | | [address] [place], | (Primary Dx); | | | | | [place] [address] | Presence of | | | | | [phone] | permanent cardiac | | | | [...]
--- OUTSIDE RECORDS SUMMARY | ~2019-10-27 | XMS | Encounter Summary ---
Demographics + + + | Address | [address] | | | [place] [address] | + + + | Home Phone [...] Providers + +------+ + | Care Store Receiver Name | Role | Phone | + +------+ + PCP | Unavailable | + +------+ + Encounter Details +--------+ + + + + | Date | Type | Department | Care Team | Description | +--------+ + + + + | 01/31/ | Hospital | [facility] | | | | 2008 | Encounter | [facility] | | | | | | [place] [address] | | | | | | [place] | | | | | | [address] | | | | | | [phone] | | | +--------+ + + + [...] | | | | | | [place] [address] | | | | | | [phone] | | | | | | | | +--------+ + + + + | 11/20/ | Implant | Cardiology | Daljit Singletary, | Remote Device | | 2018 | Monitor | | [facility] [place] | Interrogation | | | | | [facility], | (Primary Dx); | | | | | [place] [id number] | Presence of | | | | | [phone] | permanent cardiac | | | | [...]
--- OUTSIDE RECORDS SUMMARY | ~2019-10-27 | XMS | Encounter Summary ---
Demographics + + + | Address | [address] | | | [place] [address] | + + + | Home Phone [...] Team Providers + +------+ + | Care Ticker Maintainer Name | Role | Phone | + +------+ + | Michael Amanda DO | PCP | | + +------+ + Encounter Details +--------+ + + + + | Date | Type | Department | Care Team | Description | +--------+ + + + + | 07/25/ | Abstract | [facility] | Michael Amanda, | | | 2013 | | [facility] | DO [address] | | | | | [address] | [place] | | | | | [place] | [address] | | | | | [address] | | | | | | [phone] | | | +--------+ + + + [...] | | | | | | [place] [address] | | | | | | [phone] | | | | | | | | +--------+ + + + + | 11/20/ | Implant | Cardiology | Daljit Singletary, | Remote Device | | 2018 | Monitor | | [address] [facility] | Interrogation | | | | | [facility], | (Primary Dx); | | | | | [place] [address] | Presence of | | | | | [phone] | permanent cardiac | | | | [...]
--- OUTSIDE RECORDS SUMMARY | ~2019-10-27 | XMS | Encounter Summary ---
Demographics + + + | Address | [address] | | | [place] [address] | + + + | Home Phone [...] Providers + +------+ + | Care Warehouse Director Name | Role | Phone | [...] 2012 | | CARDIOLOGY [address] | 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 FIELD SERVICES TECHNICIAN [address] | | | | | [address] [place], | [place], [place] | | | | | [place] [address] | [address] | | | | | [phone] | | | +--------+ + + + [...] | | | | | | [place] [address] | | | | | | [phone] | | | | | | | | +--------+ + + + + | 11/20/ | Implant | Cardiology | aDljit Singletary, | Remote Device | | 2019 | Monitor | | MD [address] [facility] | Interrogation | | | | | [place], | (Primary Dx); | | | | | [place] [address] | Presence of | | | | | [phone] | permanent cardiac | | | | [...] + | [address] | [address] | [place], [place] | | | [facility] | | [address] | | | - LABORATORY | | [...] | | | LAB | | | Georgian, | | | [...]
--- OUTSIDE RECORDS SUMMARY | ~2019-10-27 | XMS | Encounter Summary ---
Demographics + + + | Address | [address] | | | [place] [address] | + + + | Home Phone [...] Team Providers + +------+ + | Care Nfl Player Name | Role | Phone | [...] | Emmanuel E, MD | [address] | | | | | unspecified | [address] | [place], | | | | | type | [place], [place] | [place] | | | | | Abdominal | [address] [place] | [address] | | | | | cramping | [place], [place] | Phone: | | | | | Generalized | [address] | [phone] | | | | | abdominal | Phone: | Fax: | | | | | pain | [phone] | [phone] | | | | | Procedures | Fax: | | | | | | CT Abdomen | [phone] | | | | | | Pelvis [...] 2019 | | GASTROENTEROLOGY | [address], [place] | (stomach cramps and | | | | [address] [place] | [address] [place], [place] | liquid stool) | | | | [address] [place], [place] | [address] | | | | | [address] | | | | | | [phone] | | | +--------+ + + + [...] | | | | | | [place] [address] | | | | | | [phone] | | | | | | | | +--------+ + + + + | 12/30/ | Implant | Cardiology | Daljit Singletary, | Remote Device | | 2019 | Monitor | | [address] [facility] | Interrogation | | | | | [place], | (Primary Dx); | | | | | [place] [address] | Presence of | | | | | [phone] | permanent cardiac | | | | [...]
--- OUTSIDE RECORDS SUMMARY | ~2019-10-27 | XMS | Encounter Summary ---
Demographics + + + | Address | [address] [place] [address] | | | [place] [address] | + + + | Home Phone [...] [place] | | | | | [address] | | + + + + + Care Team Providers + +------+ + | Care Core Drill Operator Name | Role | Phone [...] | | | [address] | [place], [place] | | | | | Mailcode: [place] | [address] | | | | | for Health and | [phone] | | | | | [facility] | | | | | | [place], [place] | | | | | | [address] | | | | | | [phone] | | | +--------+ + + + [...]
--- OUTSIDE RECORDS SUMMARY | ~2019-10-27 | XMS | Encounter Summary ---
Demographics + + + | Address | [address] | | | [place] [address] | + + + | Home Phone [...] Providers + +------+ + | Care Outpatient Phlebotomist Name | Role | Phone | [...] | Refill | [facility] [place] | [place], | Medication Refill | | 2014 | | CARDIOLOGY [address] | [address] [address] | | | | | [place], | [place], | | | | | [place] [address] | [place] [address] | | | | | [phone] | [phone] | | | | | | | [...] | | | | | | [place], | | | | | | [place] [address] | | | | | | [phone] | | | | | | | | +--------+ + + + + | 11/20/ | Implant | Cardiology | Daljit Singletary, | Remote Device | | 2019 | Monitor | | [address] [facility] | Interrogation | | | | | [place], | (Primary Dx); | | | | | [place] [address] | Presence of | | | | | [phone] | permanent cardiac | | | | [...]
--- OUTSIDE RECORDS SUMMARY | ~2019-10-27 | XMS | Encounter Summary ---
Demographics + + + | Address | [address] | | | [place] [address] | + + + | Home Phone [...] Providers + +------+ + | Care Customer Professional Name | Role | Phone | + +------+ + | Michael Amanda DO | PCP | | + +------+ + Encounter Details +--------+ + + + + | Date | Type | Department | Care Team | Description | +--------+ + + + + | 05/11/ | Hospital | [facility] | Conversion | Lumbago; | | 2013 | Encounter | [facility] | Transaction, | Postlaminectomy | | | | [address] | Provider Unknown | syndrome, cervical | | | | [place], [place] | | region; Cervicalgia | | | | [address] | (Fax) | | | | | [phone] | | | +--------+ + + + [...] + + + +---------+ + + | Adah-3 Fatty | CAPS, one capsule by | [...] 1147 Date of Service: 05/11/141145 Status: Signed Lot Boss: Christine Mcgraw Report called to Brittany morejon [...] | | | | | | [place], | | | | | | [place] [address] | | | | | | [phone] | | | | | | | | +--------+ + + + + | 11/20/ | Implant | Cardiology | Daljit Singletary, | Remote Device | | 2018 | Monitor | | [address] [place] | Interrogation | | | | | [place], | (Primary Dx); | | | | | [place] [address] | Presence of | | | | | [phone] | permanent cardiac | | | | [...]
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
[2019-10-27] MEDS ORDERED: VALACYCLOVIR1000 MG PO (22:59)
[2019-10-27] MEDS ORDERED: HYOSCYAMINE0.125 M1 SL (23:00)
[2019-10-27] MEDS ORDERED: NORVASC5 MG PO (23:04)
[2019-10-27] MEDS ORDERED: DICYCLOMINE HCL20 MG PO (23:05)
[2019-10-27] MEDS ORDERED: HYOSCYAMINE0.125 MG PO (23:06)
[2019-10-27] MEDS ORDERED: SERTRALINE HCL100 MG PO (23:06)
[2019-10-27] MEDS ORDERED: METOPROLOL SUC100 MG PO (23:07)
[2019-10-27] MEDS ORDERED: ATORVASTATIN CA40 MG PO (23:26)
[2019-10-27] MEDS ORDERED: LO-DOSE ASPIRIN81 M1 PO (23:37)
--- NOTE | 2019-10-28 09:36 | EKG ---
[facility] [address], [place] [address] Signed Atrial-paced rhythm with prolonged AV conduction Abnormal ECG When compared with ECG of 04-SEP-2019 15:31, No significant change was found Confirmed by DEO FLORES DO ([id number]) on 10/28/2019 9:36:19 AM Electronically Signed By: DEO FLORES DO 10/28/19 0936 PATIENT NAME: MONA GAYBrea SMITH Electrocardiogram DATE OF : 58 PHYSICIAN: DEO FLORES DO REPORT #: [id number] REPORT IS CONFIDENTIAL AND NOT TO BE RELEASED WITHOUT AUTHORIZATION
== END 2019-10-28 02:40 | disposition home or self-care (01) ==
LOC: ED 22:49
DX: R51 Headache (principal); G89.29 Other chronic pain; M54.2 Cervicalgia; I10 Essential (primary) hypertension; Z87.891 Personal history of nicotine dependence; Z88.0 Allergy status to penicillin; Z88.5 Allergy status to narcotic agent; Z88.1 Allergy status to other antibiotic agents; Z88.8 Allergy status to other drugs, medicaments and biological substances; Z79.899 Other long term (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; Z79.82 Long term (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
CPT/HCPCS: 70450; 71045; 72125; 80053; 83735; 84484; 85025; 93005; 93010; 99285-25

== ENCOUNTER 2019-11-01 11:59 | Emergency (ER) | payer MEDICARE ==
[~2019-11-01] VITALS: Ht 193 cm; Wt 95.2 kg
--- OUTSIDE RECORDS SUMMARY | ~2019-11-01 | XMS | Encounter Summary ---
Demographics + + + | Address | [address] | | | [place] [address] | + + + | Home Phone | | + + + | Preferred Language | Unknown | + + + | Marital Status | | + + + | Hoahaoism Affiliation | 1013 | + + + | Race | Unknown | + + + | Ethnic Group | Unknown | + + + Author + + + | Author | [facility] | | | and [place] | + + + | Organization | [facility] | | | [...] Team Providers + +------+ + | Care Heavy Media Operator Name | Role | Phone | + +------+ + | Kirk French MD | PCP | | + +------+ + Reason for Visit + + + | Reason | Comments | + + + | Medication Refill | | + + + Encounter Details +--------+--------+ + + + | Date | Type | Department | Care Team | Description | +--------+--------+ + + + | 08/30/ | Refill | [facility] | Kirk French | Medication Refill | | 2019 | | [facility] | MD Bre[address] | | | | | [facility] [address] | | | | | [address] | [place] [address] | | | | | [place], [place] | [phone] | | | | | [address] | | | | | | [phone] | | | +--------+--------+ + + + Social History + +--------+ +--------+ + | Tobacco Use | Types | Packs/Day | Years | Date | | | | | Used | | + +--------+ +--------+ + | Former Smoker | Cigars | | | Quit: 11/22/2012 | + +--------+ +--------+ + + +---+---+---+ | Smokeless Tobacco: | | | | | Never Used | | | | + +---+---+---+ + + | Comments: 1 cigar twice a year for 30 (when he went fishing) Previous quit date | | 02/12/1996. | + + + + +---------+ + | Alcohol Use | Drinks/Week | oz/Week | Comments | + + +---------+ + | Not Currently | 7 Shots of liquor | 7.0 | Pt states he started | | | | | drinking again - | | | | | Hard alchol | + + +---------+ + + + [...] + + documented as of this encounter Functional Status + + + + | Functional Status | Response | Date of Assessment | + + + + | Are you deaf or do you have serious | No | 03/20/2015 | | difficulty hearing? | | | + + + + | Are you blind or do you have serious | No | 03/20/2015 | | difficulty seeing, even when wearing | | | | glasses? | | | + + + + | Do you have serious difficulty walking or | No | 03/20/2015 | | climbing stairs? (5 years old or older) | | | + + + + | Do you have difficulty dressing or bathing? | No | 03/20/2015 | | (5 years old or older) | | | + + + + | Because of a physical, mental, or emotional | No | 03/20/2015 | | condition, do you have difficulty doing | | | | errands alone such as visiting a doctor's | | | | office or shopping? [15 years old or | | | | older)] | | | + + + + + + + + | Cognitive Status | Response | Date of Assessment | + + + + | Because of a physical, mental, or emotional | No | 03/20/2015 | | condition, do you have serious difficulty | | | | concentrating, remembering, or making | | | | decisions? (5 years old or older) | | | + + + + documented as of this encounter Plan of Treatment +--------+ + + + + | Date | Type | Specialty | Care Team | Description | +--------+ + + + + | 11/09/ | Office | Cardiology | [place], | | | 2019 | Visit | | [address] | | | | | | [place], | | | | | | [place] [address] | | | | | | [phone] | | | | | | | | +--------+ + + + + | 11/20/ | Implant | Cardiology | Daljit Singletary, | Remote Device | | 2018 | Monitor | | MD Chiquis Oro | Interrogation | | | | | [place], | (Primary Dx); | | | | | [place] [address] | Presence of | | | | | [phone] | permanent cardiac | | | | [...]
--- OUTSIDE RECORDS SUMMARY | ~2019-11-01 | XMS | Encounter Summary ---
Demographics + + + | Address | [address] | | | [place] [address] | + + + | Home Phone | | + + + | Preferred Language | Unknown | + + + | Marital Status | | + + + | Moravian Affiliation | 1013 | + + + | Race | Unknown | + + + | Ethnic Group | Unknown | + + + Author + + + | Author | [facility] | | | and [place] | + + + | Organization | [facility] | | | and [place] | + + + | Address | Unknown | + + + | Phone | Unavailable | + + + Support + + +---------+ + | Name | Relationship | Address | Phone | + + +---------+ + | Maria Isabel Laura | ECON | Unknown | | + + +---------+ + Care Team Providers + +------+ + | Care 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 Name | Role | Phone | + +------+ + | Kirk French MD | PCP | | + +------+ + Encounter Details +--------+ + + + + | Date | Type | Department | Care Team | Description | +--------+ + + + + | 06/17/ | Orders Only | [facility] [place] | [place], | Hyperlipidemia, | | 2016 | | CARDIOLOGY [address] | Janeen CUSTOMER FACILITIES SUPERVISOR [address] | mixed | | | | [place], | [place], | | | | | [place] [address] | [place] [address] | | | | | [phone] | [phone] | | | | | | | [...] | | | | | | [place], | | | | | | [place] [address] | | | | | | [phone] | | | | | | | | +--------+ + + + + | 11/20/ | Implant | Cardiology | Daljit Singletary, | Remote Device | | 2018 | Monitor | | MD [facility] | Interrogation | | | | | [place], | (Primary Dx); | | | | | [place] [address] | Presence of | | | | | [phone] | permanent cardiac | | | | | | pacemaker; | | | | | | Sinoatrial node | | | | | | dysfunction (HCC) | | | | | | with symptomatic | | | | | | bradycardia | +--------+ + + + + documented as of this encounter Visit Diagnoses + + | Diagnosis | + + | Hyperlipidemia, mixed Mixed hyperlipidemia | + + documented in this encounter"
--- OUTSIDE RECORDS SUMMARY | ~2019-11-01 | XMS | Encounter Summary ---
Demographics + + + | Address | [address] | | | [place] [address] | + + + | Home Phone | | + + + | Preferred Language | Unknown | + + + | Marital Status | | + + + | Bahai Affiliation | 1013 | + + + | Race | Unknown | + + + | Ethnic Group | Unknown | + + + Author + + + | Author | [facility] | | | and [place] | + + + | Organization | [facility] | | [...] Team Providers + +------+ + | Care Battery Filler Name | Role | Phone | + +------+ + | Kirk French MD | PCP | | + +------+ + Encounter Details +--------+ + + + + | Date | Type | Department | Care Team | Description | +--------+ + + + + | 01/05/ | Hospital | [facility] | Emmanuel Daniel MD | Functional diarrhea | | 2019 | Encounter | [facility] | [address], [place] | (Primary Dx); Weight | | | | [address] | [address] [place] | loss | | | | [place], [place] | [address] | | | | | [address] | | | | | | [phone] | | | +--------+ + + + [...] + + + | Blood Pressure | 111/80 | 01/05/2019 9:35 AM | | | | | PST | | + + + + + | Pulse | 70 | 01/05/2019 9:45 AM | | | | | PST | | + + + + + | Temperature | 36.3 C (97.3 F) | 01/05/2019 9:21 AM | | | | | PST | | + + + + + | Respiratory Rate | 15 | 01/05/2019 9:45 AM | | | | | PST | | + + + + + | Oxygen Saturation | 97% | 01/05/2019 9:45 AM | | | | | PST | | + + + + + | Inhaled Oxygen | - | - | | | Concentration | | | | + + + + + | Weight | 109.7 kg (241 lb | 01/05/2019 7:32 AM | | | | 13.5 oz) | PST | | + + + + + | Height | 193 cm (6' 4") | 01/05/2019 7:32 AM | | | | | PST | | + + + + + | Body Mass Index | 29.44 | 01/05/2019 7:32 AM | | | | | PST | | + + + + + documented in this encounter Functional Status + + + [...] + + documented as of this encounter Discharge Instructions Instructions Karina Dooley RN - 01/05/2019 Colonoscopy A camera attached to a flexible tube with a viewing lens is used to take video pictures. Colonoscopyis a test to view the inside of your lower digestive tract (colon and rectum). Sometimes it can show the last part of the small intestine (ileum).During the test, smal l pieces of tissue may be removed for testing. This is called a biopsy. Small growths, such as polyps, may also be removed. Why is colonoscopy done? The test is done to help look for colon cancer. And it can help find the source of abdomina l pain,bleeding,and changes in bowel habits. It may be needed once a year, depending on factors such as your: Age Health history Family health history Symptoms Results from any prior colonoscopy Risks and possible complications These include: Bleeding A puncture or tear in the colon Risks of anesthesia A cancer lesion not being seen Getting ready To prepare for the test: Talk with your healthcare provider about the risks of the test (see below). Also ask you r healthcare provider about alternatives to the test. Tell your healthcare provider about any medicines you take. Alsotell him or her about any health conditions you may have. Make sure your rectum and colon are empty for the test. Follow the diet and bowel prep i nstructions exactly. If you don t, the test may need to be rescheduled. Plan for a friend or family member to drive you home after the test. Colonoscopy provides an inside view of the entire colon. You may discuss the results with your doctor right away or at a future visit. During the test The test is usually done in the hospital on an outpatient basis. This means you go home the same day. The procedure takes about 30minutes. During that time: You are given relaxing (sedating) medicine through an IV line.You may be drowsy, or fu lly asleep. The healthcare provider will first give you a physical exam to check for anal andrecta l problems. Then the anus is lubricated and the scope inserted. If you are awake, you may have a feeling similar to needing to have a bowelmovement. Y ou may also feel pressure as air is pumped into the colon. It Shaheed to pass gas during the procedure. Biopsy, polyp removal, or other treatments may be done during the test. After the test You may have gas right after the test. It can help to try to pass it to help prevent later bloating. Your healthcare provider may discuss the results with you right away. Or you may n eed to schedule a follow-up visit to talk about the results. After the test, you can go back to your normal eating andother activities. You may be tired from the sedation and need to rest for a few hours. Date Last Reviewed: 09/22/201619996461-5929 [employer]. [address] [place] [address], [place] [address]. All righ ts reserved. This information is not intended as a substitute for professional medical care. Always follow your healthcare professional's instructions. Upper GI Endoscopy During endoscopy, a long, flexible tube is used to view the inside of your upper GI tract. Upper GI endoscopy allows your healthcare provider to look directly into the beginning of y our gastrointestinal (GI) tract. The esophagus, stomach, and duodenum (the first part of the small intestine) make up the upper GI tract. Before the exam Follow these and any other instructions you are given before your endoscopy. If you don t follow the healthcare provider s instructions carefully, the test may need to be canceled or done over: Don't eat or drink anything after midnight the night before your exam. If your exam is i n the afternoon, drink only clear liquids in the morning. Don't eat or drink anything for8 hours before the exam. In some cases, you may be able to take medicines with sips of water until 2 hours before the procedure. Speak with your healthcare provider about this. Bring your X-rays and any other test results you have. Because you will be sedated, arrange for an adult to drive you home after the exam. Tell your healthcare provider before the exam if you are taking any medicines or have an y medical problems. The procedure Here is what to expect: You will lie on the endoscopy table. Usually patients lie on the left side. You will be monitored and given oxygen. Your throat may be numbed with a spray or gargle. You are given medicine through an intr avenous (IV) line that will help you relax and remain comfortable. You may be awake or aslee p during the procedure. The healthcare provider will put the endoscope in your mouth and down your esophagus.I tis thinner than most pieces of food that you swallow. It will not affect your breathing. The medicine helps keep you from gagging. Air is put into your GI tract to expand it. It can make you burp. During the procedure, the healthcare provider can take biopsies (tissue samples), remove abnormalities, such as polyps, or treat abnormalities through a variety of devices placed t hrough the endoscope. You will not feel this. The endoscope carries images of your upper GI tract to a video screen. If you are awake, you may be able to look at the images. After the procedure is done, you will rest for a time. An adult must drive you home. When to call your healthcare provider Contact your healthcare provider if you have: Black or tarry stools, or blood in your stool Fever Pain in your belly that does not go away Nausea and vomiting, or vomiting blood Date Last Reviewed: 05/22/201619991154-8420 [employer]. [address] [place] [address]. All [facility] ts reserved. This information is not intended as a substitute for professional medical care. Always follow your healthcare professional's instructions. Recovery After Procedural Sedation (Adult) You have been given medicine by vein to make you sleep during your procedure. This may have included both a pain medicine and sleeping medicine. Most of the effects have worn off. But you may still have some drowsiness for the next 6 to 8 hours. Home care Follow these guidelines when you get home: For the next 8 hours, you should be watched by a responsible adult. This person should m inga sure your condition is not getting worse. Don't drink any alcoholfor the next [address], operate dangerous machinery,make important business or personal decisions , or sign legal documentsduring the next 24 hours. Note: Your healthcare provider may tell you not to take any medicine by mouth for pain or s leep in the next 4 hours. These medicines may react with the medicines you were given in the hospital. This could cause a much stronger response than usual. Follow-up care Follow up with your healthcare provider if you are not alert and back to your usual level o f activity within 12 hours. When to seek medical advice Call your healthcare provider right away if any of these occur: Drowsiness gets worse Weakness or dizziness gets worse Repeated vomiting You can't be awakened Date Last Reviewed: 09/08/201619993159-4437 [employer]. [address] [place] [address], [place] [address]. All righ ts reserved. This information is not intended as a substitute for professional medical care. Always follow your healthcare professional's instructions. documented in this encounter Medications at Time [...] + +---------+ + + | | Take 1 tablet by | | 0 | | | | diphenoxylate-atropi | mouth 4 times daily | | | | | | ne (LOMOTIL) | as needed for | | | | | | 2.5-0.025 mg per | Diarrhea. | | | | | | tablet | | | [...] + + + +---------+ + + | [place]-3 Fatty | CAPS, one capsule by | | 0 | 03/09/20 | | | Acids (SALMON | mouth daily twice | | | 12 | | | OIL-1000 PO) | daily | | | | | + + + +---------+ + + | ondansetron | Take 4 mg by mouth | | 0 | 12/02/19 | | | (ZOFRAN ODT) 4 mg | every 8 hours as | | | 19 | | | disintegrating | needed for Nausea. | | | | | | tablet | | | [...] + +---------+ + + | | Take 2 capsules by | | 0 | | | | 5-Hydroxytryptophan | mouth Daily. | | | | 9 | | 100 MG CAPS | | | | | | + + + +---------+ + + | acyclovir | Apply 1 Application | | 0 | | | | (ZOVIRAX) 5% | topically every 3 | | | | 9 | | ointment | hours. | | | | | + + + +---------+ + + | aluminum-magnesium | Take 5 mLs by mouth | | 0 | | | | hydroxide 200-200 | every 6 hours as | | | | 9 | | MG/5ML suspension | needed for | | | | | | | Indigestion. | | | | | + + + +---------+ + + | cephalexin | Take 500 mg by mouth | | 0 | | | | (KEFLEX) 500 mg | 4 times daily. | | | | 9 | | capsule | | | | | | + + + +---------+ + + | cholecalciferoL | Take by mouth. | | 0 | | | | (VITAMIN D-3) 1,000 | | | | | 9 | | units CAPS capsule | | | | | | + + + +---------+ + + | ciprofloxacin | Take 250 mg by mouth | | 0 | 08/29/20 | | | (CIPRO) 250 mg | 2 times daily. | | | 18 | 9 | | tablet | | | | | | + + + +---------+ + + | clonazePAM | Take 0.5 mg by mouth | | 0 | 08/08/20 | | | (KLONOPIN) 0.5 mg | 3 times daily as | | | 18 | 9 | | tablet | needed. | | | | | + + + +---------+ + + | cloNIDine | Take 1 tablet by | 270 | 3 | 12/25/19 | | | (CATAPRES) 0.2 MG | mouth 3 times daily. | tablet | | 17 | 9 | | tablet | | | | | | + + + +---------+ + + | dicyclomine | Take 1 tablet by | 30 | 1 | 12/26/19 | | | (BENTYL) 20 MG | mouth 3 times daily | tablet | | 19 | 9 | | tablet | as needed. Before | | | | | | | meals | | | | | + + + +---------+ + + | flecainide | Take 100 mg by mouth | | 0 | | | | (TAMBOCOR) 100 mg | 2 times daily. | | | | 9 | | tablet | | | | | | + + + +---------+ + + | loperamide | Take 4 mg by mouth 3 | | 0 | | | | (IMODIUM A-D) 2 MG | times daily as | | | | 9 | | tablet | needed. | | | | | + + + +---------+ + + | losartan (COZAAR) | Take 25 mg by mouth | | 0 | | | | 25 mg tablet | Daily. | | | | 9 | + + + +---------+ + + | | Take 10 mg by mouth | | 0 | | | | Melatonin-Pyridoxine | nightly. | | | | 9 | | 1-10 MG TABS | | | | | [...] + + + +---------+ + + | raNITIdine | Take 1 tablet by | 30 | 0 | 07/28/20 | | | (ZANTAC) 75 MG | mouth 2 times daily. | tablet | | 18 | 9 | | tablet | | | | | | + + + +---------+ + + | sertraline | Take 100 mg by mouth | | 0 | 08/29/20 | | | (ZOLOFT) 50 mg | Daily. | | | 18 | 9 | | tablet | | | | | | + + + +---------+ + + | UNABLE TO FIND | Med Name: Pure CBD | | 0 | | | | | Tincture, 100 mg at | | | | 9 | | | nightCBD ultra | | | | | | | Concentrated Hemp | | | | | | | oil for anxiety as | | | | | | | neededCBD | | | | | | | anti-inflammatory | | | | | | | topical cream TID | | | | | + + [...] [address] | | | | | | [address] [place], | | | | | | [place] [address] | | | | | | [phone] | | | | | | | | +--------+ + + + + | 11/20/ | Implant | Cardiology | Daljit Singletary, | Remote Device | | 2018 | Monitor | | MD [place] | Interrogation | | | | | [facility] [place], | (Primary Dx); | | | | | [place] [address] | Presence of | | | | | [phone] | permanent cardiac | | | | [...] | + +--------+ + + + | RESULT | Routin | 01/05/2019 | | Results for this | | (NON-ORD)[facility] | e | 8:54 AM | | procedure are in the | | | | PST | | results section. | + +--------+ + + + | LACTOFERRIN, FECAL, | Routin | 01/05/2019 | | Results for this | | QUAL | e | 8:54 AM | | procedure are in the | | | | PST | | results section. | + +--------+ + + + | OVA AND PARASITE | Routin | 01/05/2019 | | Results for this | | EXAMINATION | e | 8:54 AM | | procedure are in the | | | | PST | | results section. | + +--------+ + + + | CRYPTOSPORIDIUM AG | Routin | 01/05/2019 | | Results for this | | | e | 8:54 AM | | procedure are in the | | | | PST | | results section. | + +--------+ + + + | GIARDIA AG, EIA, | Routin | 01/05/2019 | | Results for this | | STOOL | e | 8:54 AM | | procedure are in the | | | | PST | | results section. | + +--------+ + + + | CLOSTRIDIUM | Routin | 01/05/2019 | | Results for this | | DIFFICILE A AND B | e | 8:54 AM | | procedure are in the | | EIA | | PST | | results section. | + +--------+ + + + | STOOL PATHOGENS, | Routin | 01/05/2019 | | Results for this | | NAAT, 6 TO 11 | e | 8:45 AM | | procedure are in the | | TARGETS | | PST | | results section. | + +--------+ + + + | HELICOBACTER PYLORI | Routin | 01/05/2019 | | Results for this | | BIOPSY | e | 8:45 AM | | procedure are in the | | | | PST | | results section. | + +--------+ + + + | EGD | Routin | 01/05/2019 | | Results for this | | | e | 8:36 AM | | procedure are in the | | | | PST | | results section. | + +--------+ + + + | COLONOSCOPY | Routin | 01/05/2019 | | Results for this | | | e | 8:36 AM | | procedure are in the | | | | PST | | results section. 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) | | | | | | Z88.5 allergy to | | | | | | narcotic agent | | | | | | I25.10 CAD | | + +--------+ + + + | EGD | | 01/05/2019 | Functional | | | | | 8:34 AM | diarrhea (K59.1), | | | | | PST | Gastrointestinal | | | | | | hemorrhage | | | | | | associated with | | | | | | anorectal source | | | | | | (K62.5), Melena | | | | | | (K92.1), Full | | | | | | incontinence of | | | | | | feces (R15.9), | | | | | | 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 | + +--------+ + + + documented in this encounter Results RESULT REFLEX (01/05/2019 8:54 AM PST) + + + + + + | Component | Value | Ref Range | Performed | Pathologist | | | | | At | Signature | + + + + + + | Result | CommentComment: No ova, | | REFERENCE | | | | cysts, or parasites | | LAB [facility] | | | | seen.One negative | | - [facility] | | | | specimen does not rule | | | | | | out the possibility of | | | | | | aparasitic infection. | | | | + + + + + + + + | Specimen | + + | Stool - Stool | | specimen (specimen) | + + + + + | Narrative | Performed At | + + + | Performed at: 01 - [facility] [address], | REFERENCE LAB | | [place], [place] [id number] [employer] Former: Miguel Galarza MD, Phone: | [facility] | | [phone] | | + + + + + + + + | Performing | Address | City/State/Zipcode | Phone Number | | Organization | | | | + + + + + | REFERENCE LAB | [address] | [place] [address] | [phone] | | [facility] | [address] | | | + + + + + Ova and Parasite Examination (01/05/2019 8:54 AM PST) + + + + + + | Component | Value | Ref Range | Performed | Pathologist | | | | | At | Signature | + + + + + + | Ova + | Final reportComment: | | REFERENCE | | | Parasite | These results were | | LAB [facility] | | | Exam | obtained using wet | | - [facility] | | | | preparation(s) and | | | | | | trichromestained smear. | | | | | | This test does not | | | | | | include testing for | | | | | | Cryptosporidiumparvum, | | | | | | Cyclospora, or | | | | | | Microsporidia. | | | | + + + + + + + + | Specimen | + + | Stool - Stool | | specimen (specimen) | + + + + + | Narrative | Performed At | + + + | Performed at: 01 - [facility] [address], | REFERENCE LAB | | [place], [place] [id number] [employer] Former: Miguel Galarza MD, Phone: | [facility] | | [phone] | | + + + + + + + + | Performing | Address | City/State/Zipcode | Phone Number | | Organization | | | | + + + + + | REFERENCE LAB | [address] | [place] [address] | [phone] | | [facility] | [facility] | | | + + + + + Lactoferrin, Fecal, Qual (01/05/2019 8:54 AM PST) + + + + + + | Component | Value | Ref Range | Performed | Pathologist | | | | | At | Signature | + + + + + + | Lactoferrin | Negative | Negative | [facility] | | | , Qual | | | [facility] | | | | | | MEDICAL | | | | | | CENTER - | | | | | | LABORATORY | | + + + + + + + + | Specimen | + + | Stool - Stool | | specimen (specimen) | + + + + + + + | Performing | Address | City/State/Zipcode | Phone Number | | Organization | | | | + + + + + | [facility] | [address] | [place] | [phone] | | [facility] | | [address] | | | - LABORATORY | | | | + + + + + Clostridium difficile A and B EIA (01/05/2019 8:54 AM PST) + + + + + + | Component | Value | Ref Range | Performed | Pathologist | | | | | At | Signature | + + + + + + | Clostridium | NegativeComment: | Negative | [facility] | | | Difficile | Negative for toxigenic | | [facility] | | | [facility] | Clostridium difficile | | MEDICAL | | | | | | CENTER - | | | | | | LABORATORY | | + + + + + + | C. Diff | NegativeComment: No data | Negative | [facility] | | | Toxin A/B | exists on the effects | | [facility] | | | EIA | of colonic washes, | | MEDICAL | | | | barium enemas, | | CENTER - | | | | laxatives, or bowel | | LABORATORY | | | | preparations on the | | | | | | performance of this | | | | | | test. All of these | | | | | | procedures can result in | | | | | | extensive dilution or | | | | | | the presence of | | | | | | additives that may | | | | | | affect test performance. | | | | + + + + + + + + | Specimen | + + | Stool - Stool | | specimen (specimen) | + + + + + + + | Performing | Address | City/State/Zipcode | Phone Number | | Organization | | | | + + + + + | [facility] | [address] | [place] | [phone] | | [facility] | | [address] | | | - LABORATORY | | | | + + + + + Cryptosporidium Ag (01/05/2019 8:54 AM PST) + + + + + + | Component | Value | Ref Range | Performed | Pathologist | | | | | At | Signature | + + + + + + | Cryptospori | Negative | Negative | [facility] | | | dium | | | [facility] | | | Antigen | | | MEDICAL | | | | | | CENTER - | | | | | | LABORATORY | | + + + + + + + + | Specimen | + + | Stool - Stool | | specimen (specimen) | + + + + + + + | Performing | Address | City/State/Zipcode | Phone Number | | Organization | | | | + + + + + | [facility] | [address] | [place] | [phone] | | [facility] | | [address] | | | - LABORATORY | | | | + + + + + Giardia Ag, EIA, Stool (01/05/2019 8:54 AM PST) + + + + + + | Component | Value | Ref Range | Performed | Pathologist | | | | | At | Signature | + + + + + + | Giardia | Negative | Negative | [facility] | | | Antigen, | | | [facility] | | | Stool | | | MEDICAL | | | | | | CENTER - | | | | | | LABORATORY | | + + + + + + + + | Specimen | + + | Stool - Stool | | specimen (specimen) | + + + + + + + | Performing | Address | City/State/Zipcode | Phone Number | | Organization | | | | + + + + + | [facility] | [address] | [place] | [phone] | | [facility] | | [address] | | | - LABORATORY | | | | + + + + + Stool Pathogens, NAAT (01/05/2019 8:45 AM PST) + + + + + + | Component | Value | Ref Range | Performed | Pathologist | | | | | At | Signature | + + + + + + | Campylobact | Not Detected | Not Detected | [facility] | | | er, NAAT | | | [facility] | | | | | | MEDICAL | | | | | | CENTER - | | | | | | LABORATORY | | + + + + + + | Salmonella, | Not Detected | Not Detected | [facility] | | | NAAT | | | [facility] | | | | | | MEDICAL | | | | | | CENTER - | | | | | | LABORATORY | | + + + + + + | Shigella | Not Detected | Not Detected | [facility] | | | NAAT | | | [facility] | | | | | | MEDICAL | | | | | | CENTER - | | | | | | LABORATORY | | + + + + + + | Vibrio, | Not Detected | Not Detected | [facility] | | | NAAT | | | [facility] | | | | | | MEDICAL | | | | | | CENTER - | | | | | | LABORATORY | | + + + + + + | Yersinia | Not Detected | Not Detected | [facility] | | | enterocolit | | | [facility] | | | ica, NAAT | | | MEDICAL | | | | | | CENTER - | | | | | | LABORATORY | | + + + + + + | Shigatoxin | Not Detected | Not Detected | [facility] | | | 1 NAAT | | | [facility] | | | | | | MEDICAL | | | | | | CENTER - | | | | | | LABORATORY | | + + + + + + | Shigatoxin | Not Detected | Not Detected | [facility] | | | 2 NAAT | | | [facility] | | | | | | MEDICAL | | | | | | CENTER - | | | | | | LABORATORY | | + + + + + + | Norovirus, | Not Detected | Not Detected | [facility] | | | NAAT | | | [facility] | | | | | | MEDICAL | | | | | | CENTER - | | | | | | LABORATORY | | + + + + + + | Rotavirus | Not Detected | Not Detected | [facility] | | | A, NAAT | | | [facility] | | | | | | MEDICAL | | | | | | CENTER - | | | | | | LABORATORY | | + + + + + + + + | Specimen | + + | Stool - Stool | | specimen (specimen) | + + + + + + + | Performing | Address | City/State/Zipcode | Phone Number | | Organization | | | | + + + + + | [facility] | [address] | [place] | [phone] | | [facility] | | [address] | | | - LABORATORY | | | | + + + + + Helicobactor pylori Biopsy (01/05/2019 8:45 AM PST) + + + + + + | Component | Value | Ref Range | Performed | Pathologist | | | | | At | Signature | + + + + + + | Helicobacte | Negative | Negative | [facility] | | | r pylori Ag | | | [facility] | | | | | | MEDICAL | | | | | | CENTER - | | | | | | LABORATORY | | + + + + + + + + | Specimen | + + | Tissue - Specimen | | from stomach | | (specimen) | + + + + + + + | Performing | Address | City/State/Zipcode | Phone Number | | Organization | | | | + + + + + | [facility] | [address] | [place], [place] | [phone] | | [facility] | | [address] | | | - LABORATORY | | | | + + + + + BERNARDD (01/05/2019 8:36 AM PST) + + | Specimen | + + | | + + + + -+ | Narrative | Performed At | + + -+ | | [facility] | | GastroenterologyPatient Name: Moe Venegas Date: | PROVATION | | 01/05/2019 8:36 AMMRN: [id number] #: [id number] of : | | | 9Admit Type: AmbulatoryAge: 58[facility]: [facility] 01Gender: MaleNote | | | Status: FinalizedAttending MD: Emmanuel Daniel , [facility]cedure: | | | Upper GI endoscopyIndications: Diarrhea, Weight | | | lossProviders: Emmanuel Daniel MD, Heidi An, | | | RN, Kim Hicks, [place] Tractor Mechanic, | | | Jarett Barakat MD (Anesthesia | | | Staff)Referring MD: Kirk French (Referring | | | MD)Medicines: Propofol per AnesthesiaComplications: | | | No immediate complications. Estimated blood loss: Minimal.Procedure: | | | Pre-Anesthesia Assessment: - Prior to the procedure, a | | | History and Physical was performed, and patient medications, | | | allergies and sensitivities were reviewed. The patient's | | | tolerance of previous anesthesia was reviewed. - Prior to the | | | procedure, a History and Physical was performed, and patient | | | medications and allergies were reviewed. The patient is | | | competent. The risks and benefits of the procedure and the sedation | | | options and risks were discussed with the patient. All questions | | | were answered and informed consent was obtained. Patient | | | identification and proposed procedure were verified by the | | | physician, the nurse, the anesthesiologist and the server support technician | | | in the endoscopy suite. Mental Status Examination: alert and | | | oriented. Airway Examination: normal oropharyngeal airway and | | | neck mobility and Mallampati Class III (part of the uvula and | | | soft palate visualized). Prophylactic Antibiotics: The patient | | | does not require prophylactic antibiotics. Prior Anticoagulants: | | | The patient has taken no previous anticoagulant or antiplatelet | | | agents. ASA Grade Assessment: III - A patient with severe | | | systemic disease. After reviewing the risks and benefits, the | | | patient was deemed in satisfactory condition to undergo the | | | procedure. The anesthesia plan was to use monitored anesthesia | | | care (MAC). Immediately prior to administration of medications, | | | the patient was re-assessed for adequacy to receive sedatives. | | | The heart rate, respiratory rate, oxygen saturations, blood | | | pressure, adequacy of pulmonary ventilation, and response to | | | care were monitored throughout the procedure. The physical | | | status of the patient was re-assessed after the procedure. - | | | After reviewing the risks and benefits, the patient was deemed in | | | satisfactory condition to undergo the procedure. - Using IV | | | propofol under the supervision of an anesthesiologist was | | | determined to be medically necessary for this procedure based on | | | severe comorbidity (greater than ASA Grade II), patient's | | | dependence on opiates, sedatives or hypnotics, patient's | | | history of problems with anesthesia and patient's anxiety. | | | - Immediately prior to administration of medications, the patient | | | was re-assessed for adequacy to receive sedatives. - The | | | heart rate, respiratory rate, oxygen saturations, blood pressure, | | | adequacy of pulmonary ventilation, and response to care were | | | monitored throughout the procedure. - The physical status | | | of the patient was re-assessed after the procedure. After | | | obtaining informed consent, the endoscope was passed under direct | | | vision. Throughout the procedure, the patient's blood pressure, | | | pulse, and oxygen saturations were monitored continuously. The | | | Endoscope was introduced through the mouth, and advanced to the | | | third part of duodenum. The upper GI endoscopy was | | | accomplished without difficulty. The patient tolerated the | | | procedure well.Findings: The cricopharyngeus, upper third of the | | | esophagus, middle third of the esophagus and lower third of | | | the esophagus were normal. The Z-line was regular and was found | | | 38 cm from the incisors. Localized moderate inflammation | | | characterized by erosions and erythema was found in the gastric | | | antrum. Biopsies were taken with a cold forceps for | | | Helicobacter pylori testing using CLOtest. Verification of patient | | | identification for the specimen was done. Estimated blood loss was | | | minimal. The duodenal bulb, first portion of the | | | duodenum, second portion of the duodenum, area of the papilla | | | and third portion of the duodenum were normal. Biopsies for | | | histology were taken with a cold forceps for evaluation of | | | celiac disease. The retroflexed view confirmed previous | | | findings, A patulous lower esophageal sphincter was found. | | | Imaging was performed using the [employer] Intelligent [employer]o | | | Endoscopy (FICE) system to visualize the esophageal | | | mucosa.Impression: - Normal cricopharyngeus, upper third of | | | esophagus, middle third of esophagus and lower third of | | | esophagus. - Z-line regular, 38 cm from the incisors. - | | | Gastritis. Biopsied. - Normal duodenal bulb, first portion of | | | the duodenum, second portion of the duodenum, area of the | | | papilla and third portion of the duodenum. Biopsied. - | | | The retroflexed view confirmed previous findings, - Patulous | | | lower esophageal sphincter.Recommendation: - Discharge patient | | | to home (ambulatory). - Resume previous diet today. - | | | Continue present medications. - Await pathology results. - | | | Perform a colonoscopy today. - Return to primary care physician | | | as previously scheduled. - Telephone GI clinic for pathology | | | results in 1 week.Emmanuel Daniel MD01/05/2019 9:20:28 AMThis report | | | has been signed electronically.Number of Addenda: 0Note Initiated On: | | | 01/05/2019 8:36 AMTotal Procedure Duration: 0 hours 5 minutes 53 | | | seconds Scope In: 8:43:57 AMScope Out: 8:49:50 AM [facility]. | | | [facility], [address] [place] [address] | | | [phone] | | |Recommendation: | | | - Discharge patient to home (ambulatory). | | | - Resume previous diet today. | | | - Continue present medications. | | | - Await pathology results. | | | - Perform a colonoscopy today. | | | - Return to primary care physician as previously scheduled. | | | - Telephone GI clinic for pathology results in 1 week. | | |Emmanuel Daniel MD | | |01/05/2019 9:20:28 AM | | |This report has been signed electronically. | | |Number of Addenda: 0 | | |Note Initiated On: 01/05/2019 8:36 AM | | |Total Procedure Duration: 0 hours 5 minutes 53 seconds | | |Scope In: 8:43:57 AM | | |Scope Out: 8:49:50 AM | | | [facility], [address] [facility], [place], [place] | | | [address] | | + + -+ + +---------+ + + | Performing | Address | City/State/Zipcode | Phone Number | | Organization | | | | + +---------+ + + | [facility] | | | | + +---------+ + + COLONOSCOPY (01/05/2019 8:36 AM PST) + + | Specimen | + + | | + + + + -+ | Narrative | Performed At | + + -+ | | [facility] | | GastroenterologyPatient Name: Moe Venegas Date: | [facility] | | 01/05/2019 8:36 AMMRN: [id number] #: [id number] of : | | | 9Admit Type: AmbulatoryAge: 58Room: [facility] 01Gender: MaleNote | | | Status: FinalizedAttending MD: Emmanuel Daniel , [facility]rocedure: | | | ColonoscopyIndications: Clinically significant diarrhea of | | | unexplained origin, Weight lossProviders: | | | Emmanuel Daniel MD, Heidi An RN, [employer] | | | Fiorella Hicks, Garden Tractor Mechanic, Jarett Sapna | | | MD Roshni (Anesthesia Staff)Referring | | | MD: Kirk French (Referring MD)Medicines: | | | Propofol per AnesthesiaComplications: No immediate | | | complications. Estimated blood loss: Minimal.Procedure: | | | Pre-Anesthesia Assessment: - Prior to the procedure, a History | | | and Physical was performed, and patient medications, allergies | | | and sensitivities were reviewed. The patient's tolerance of | | | previous anesthesia was reviewed. - Prior to the procedure, a | | | History and Physical was performed, and patient medications and | | | allergies were reviewed. The patient is competent. The risks | | | and benefits of the procedure and the sedation options and | | | risks were discussed with the patient. All questions were | | | answered and informed consent was obtained. Patient identification and | | | proposed procedure were verified by the physician, the nurse, | | | the anesthesiologist and the server support technician in the endoscopy suite. | | | Mental Status Examination: alert and oriented. Airway | | | Examination: normal oropharyngeal airway and neck mobility and | | | Mallampati Class III (part of the uvula and soft palate | | | visualized). Prophylactic Antibiotics: The patient does not | | | require prophylactic antibiotics. Prior Anticoagulants: The | | | patient has taken no previous anticoagulant or antiplatelet agents. | | | ASA Grade Assessment: III - A patient with severe systemic | | | disease. After reviewing the risks and benefits, the patient | | | was deemed in satisfactory condition to undergo the procedure. | | | The anesthesia plan was to use monitored anesthesia care (MAC). | | | Immediately prior to administration of medications, the | | | patient was re-assessed for adequacy to receive sedatives. The | | | heart rate, respiratory rate, oxygen saturations, blood | | | pressure, adequacy of pulmonary ventilation, and response to | | | care were monitored throughout the procedure. The physical | | | status of the patient was re-assessed after the procedure. - | | | After reviewing the risks and benefits, the patient was deemed in | | | satisfactory condition to undergo the procedure. - Using IV | | | propofol under the supervision of an anesthesiologist was | | | determined to be medically necessary for this procedure based on | | | prolonged procedure requiring deep sedation, patient's history of | | | problems with anesthesia and patient's anxiety. - | | | Immediately prior to administration of medications, the patient was | | | re-assessed for adequacy to receive sedatives. - The heart | | | rate, respiratory rate, oxygen saturations, blood pressure, | | | adequacy of pulmonary ventilation, and response to care were monitored | | | throughout the procedure. - The physical status of the | | | patient was re-assessed after the procedure. After I obtained | | | informed consent, the scope was passed under direct vision. | | | Throughout the procedure, the patient's blood pressure, pulse, | | | and oxygen saturations were monitored continuously. The Colonoscope | | | was introduced through the anus and advanced to the cecum, | | | identified by the appendiceal orifice, ileocecal valve and | | | palpation. The colonoscopy was performed with ease. The | | | colonoscopy was performed without difficulty. The patient | | | tolerated the procedure well. The quality of the bowel | | | preparation was excellent except the ascending colon was fair and the | | | cecum was fair.Findings: The perianal and digital rectal | | | examinations were normal. Pertinent negatives include normal | | | sphincter tone, no palpable rectal lesions and normal prostate | | | (size, shape, and consistency). The colon (entire examined | | | portion) appeared normal. Biopsies for histology were taken | | | with a cold forceps from the ascending colon and descending | | | colon for evaluation of microscopic colitis. Verification of | | | patient identification for the specimen was done. Estimated blood loss | | | was minimal. A moderate amount of semi-solid stool was | | | found in the ascending colon and in the cecum, interfering with | | | visualization. Lavage of the area was performed using copious | | | amounts, resulting in incomplete clearance with fair | | | visualization. The exam was otherwise without abnormality. | | | The retroflexed view of the distal rectum and anal verge was normal | | | and showed no anal or rectal abnormalities.Impression: - | | | The entire examined colon is normal. Biopsied. - Stool in the | | | ascending colon and in the cecum. - The examination was | | | otherwise normal. - The distal rectum and anal verge are normal | | | on retroflexion view.Recommendation: - Patient has a contact | | | number available for emergencies. The signs and symptoms of | | | potential delayed complications were discussed with the | | | patient. Return to normal activities tomorrow. Written discharge | | | instructions were provided to the patient. - Discharge | | | patient to home (ambulatory). - Resume previous diet today. | | | - Continue present medications. - Await pathology results. | | | - Return to primary care physician as previously scheduled. | | | - Telephone GI clinic for pathology results in 1 week.Emmanuel Daniel, | | | 01/05/2019 9:25:47 AMThis report has been signed | | | electronically.Number of Addenda: 0Note Initiated On: 01/05/2019 8:36 | | | AMScope Withdrawal Time: 0 hours 9 minutes 3 seconds Total Procedure | | | Duration: 0 hours 15 minutes 2 seconds Scope In: 8:51:26 AMScope Out: | | | 9:06:28 AM [facility], [address] [place] [address], | | | [place] [address] | | | - Discharge patient to home (ambulatory). | | | - Resume previous diet today. | | | - Continue present medications. | | | - Await pathology results. | | | - Return to primary care physician as previously scheduled. | | | - Telephone GI clinic for pathology results in 1 week. | | |Emmanuel Daniel MD | | |01/05/2019 9:25:47 AM | | |This report has been signed electronically. | | |Number of Addenda: 0 | | |Note Initiated On: 01/05/2019 8:36 AM | | |Scope Withdrawal Time: 0 hours 9 minutes 3 seconds | | |Total Procedure Duration: 0 hours 15 minutes 2 seconds | | |Scope In: 8:51:26 AM | | |Scope Out: 9:06:28 AM | | | [facility], [address] [place] [address], [place], [place] | | | [address] | | + + -+ + +---------+ + + | Performing | Address | City/State/Zipcode | Phone Number | | Organization | | | | + +---------+ + + | [facility] | | | | + +---------+ + + Surgical Pathology Exam (01/05/2019 12:00 AM PST) + + | Specimen | + + | | + + + + + | Narrative | Performed At | + + + | SPECIMEN(S): A DUODENAL BIOPSY SPECIMEN(S): B RIGHT COLON | [facility] | | SPECIMEN(S): C LEFT COLON SPECIMEN SOURCE: A. DUODENAL BIOPSY B. | [facility] | | RIGHT COLON C. LEFT COLON CLINICAL HISTORY: K59.1 (Functional | | | diarrhea), K62.5 (Hemorrhage of anus and rectum), K92.1 (Melena), | | | R15.9 (full incontinence of feces), Z95.0 (presence of cardiac | | | pacemaker), Z88.5 (Allergy status to narcotic agent status), I25.10 | | | (atherosclerotic heart disease of [place] coronary artery without | | | angina pectoris) MICROSCOPIC DESCRIPTION: Histologic sections of | | | all submitted blocks are examined by light microscopy. These findings, | | | together with the gross examination, support the pathologic | | | diagnosis. FINAL PATHOLOGIC DIAGNOSIS: A. Duodenum, biopsies: - | | | Benign duodenal mucosa without abnormality, including no evidence of | | | celiac disease or peptic duodenitis. B. Right colon, biopsies: - | | | No pathologic abnormality, including no evidence of acute, chronic | | | or microscopic colitis. C. Left colon, biopsies: - No | | | pathologic abnormality, including no evidence of acute, chronic or | | | microscopic colitis. BES:[facility]:C3NR GROSS DESCRIPTION: A. The | | | specimen, labeled "[place], duodenal biopsy" is received in formalin | | | and consists of seven 0.1-0.5 cm lin fragments. Entirely submitted in | | | (A1). B. The specimen, labeled "[place], right colon" is received | | | in formalin and consists of six 0.2-0.3 cm lin fragments. Entirely | | | submitted in (B1). C. The specimen, labeled "[place], left colon" | | | is received in formalin and consists of six 0.2-0.3 cm lin-pink | | | fragments. Entirely submitted in (C1). am:AMB:[facility]illo PERFORMING | | | LABORATORY: The technical component was performed by [email or web address] | | | [facility], [address] [place] [address] ([facility]: | | | Kailey Stafford MD; CLIA# [id number]). Professional interpretation was | | | performed by [facility], [facility], [address] | | [place] [address] ([place]: [place] | Shanique Dao M.D.; LAYNE#: [id number]). Diagnostician: [place] | | Sylwia WINKLER Pathologist Electronically Signed 01/06/2019 | | + + + + +---------+ + + | Performing | Address | City/State/Zipcode | Phone Number | | Organization | | | | + +---------+ + + | [facility] | | | | | [facility] | | | | + +---------+ + + documented in this encounter Visit Diagnoses + + | Diagnosis | + + | Functional diarrhea - Primary | + + | Weight loss Loss of weight | + + | Pacemaker Cardiac pacemaker in situ | + + | Ulcerative colitis Ulcerative colitis, unspecified | + + | Smoker Tobacco use disorder | + + | Obstructive sleep apnea on CPAP Obstructive sleep apnea (adult) (pediatric) | + + | Hypertension Unspecified essential hypertension | + + documented in this encounter Administered Medications + +--------+---------+------+------+------+ | Medication Order | MAR | Action | Dose | Rate | Site | | | Action | Date | | | | + +--------+---------+------+------+------+ + +---+ | albuterol 2.5 mg/3 mL nebulizer | | | solution 2.5 mg 2.5 mg, | | | Nebulization, ONCE PRN, Wheezing, | | | Starting [facility] 01/05/19 at 0924, | | | For 1 dose, Notify anesthesia if | | | patient is wheezing and does not | | | have a history of asthma or COPD | | | or current smoking., | | | Recovery/Phase I | | + +---+ | | | + +---+ + +---------+ +---+-------+---+ | lactated ringers (LR) infusion | New Bag | 01/05/20 | | 100 | | | at 100 mL/hr, Intravenous, | | 19 7:46 | | mL/hr | | | CONTINUOUS, Starting [facility] 01/05/19 | | AM PST | | | | | at 0800, Pre-op | | | | | | + +---------+ +---+-------+---+ + +---+ | | | + +---+ | ondansetron (ZOFRAN) injection | | | 4 mg 4 mg, Oral, EVERY 4 HOURS | | | PRN, Nausea, Vomiting, Starting | | | [facility] 01/05/19 at 0924, | | | Recovery/Phase I | | + +---+ | | | + +---+ | ondansetron (ZOFRAN) injection | | | 4 mg 4 mg, Intravenous, ONCE | | | PRN, Nausea, Starting [facility] 01/05/19 | | | at 0924, For 1 dose, | | | Recovery/Phase I | | + +---+ | | | + +---+ documented in this encounter
--- OUTSIDE RECORDS SUMMARY | ~2019-11-01 | XMS | Encounter Summary ---
Demographics + + + | Address | [address] | | | [place] [address] | + + + | Home Phone | | + + + | Preferred Language | Unknown | + + + | Marital Status | | + + + | Holiness Affiliation | 1013 | + + + | Race | Unknown | + + + | Ethnic Group | Unknown | + + + Author + + + | Author | [facility] | | | and [place] | + + + | Organization | [facility] | | | [...] Team Providers + +------+ + | Care Coin Collector Name | Role | Phone | + +------+ + | Kirk French MD | PCP | | + +------+ + Reason for Visit + + + | Reason | Comments | + + + | Device Check | | | (In-office) | | + + + Encounter Details +--------+ + + + + | Date | Type | Department | Care Team | Description | +--------+ + + + + | 08/24/ | Procedure | [facility] | Margarito Jaeger | Pacemaker | | 2017 | visit | CARDIOLOGY [address] | MD Fabrice [address] | reprogramming/check | | | | [place], | [address] [place] | DO NOT DELETE | | | | [place] [address] | [place] [address] | (Primary Dx); | | | | [phone] | [phone] | Pacemaker - | | | | | | Medtronic - [id number] | | | | | | Adapta - Implanted | | | | | | 06/14/2009; | | | | | | Sinoatrial node | | | | | | dysfunction ([facility]) | | | | | | with [...] [place], | | | | | | [place] [address] | | | | | | [phone] | | | | | | | | +--------+ + + + + | 11/20/ | Implant | Cardiology | Daljit Singletary, | Remote Device | | 2018 | Monitor | | MD Chiquis Oro | Interrogation | | | | | [place], | (Primary Dx); | | | | | [place] [address] | Presence of | | | | | [phone] | permanent cardiac | | | | [...] + +--------+ + + + | DEVICE INTERROGATION | Routin | 08/24/2018 | Pacemaker | Results for this | | | e | 10:00 AM | reprogramming/check | procedure are in the | | | | PDT | DO NOT DELETE | results section. | | | | | Pacemaker - | | | | | | Medtronic - [id number] | | | | | | Adapta - Implanted | | | | | | 06/14/2009 | | | | | | Sinoatrial node | | | | | | dysfunction (HCC) | | | | | | with symptomatic | | | | | | bradycardia | | + +--------+ + + + documented in this encounter Results Device Interrogation (08/24/2018 10:00 AM PDT) + + + | Narrative | Performed At | + + + | Margarito Avina | [facility] | | MD Heide 08/24/2018 15:10 PATIENT NAME: Moe Bradley | | | Laura : 1960: AGE: 58 y.o. Pacemaker Evaluation | | | Report August 24, 2018 Reason for evaluation: routineIndication for | | | pacemaker: Sinoatrial node dysfunction (HCC) (I49.5, 427.81); | | | Pacemaker reprogramming/check (Z45.018, V53.31); Presence of permanent | | | cardiac pacemaker (Z95.0, V45.01) Patient was seated and reclined and | | | device was interrogated. Pacemaker parameters, battery status, | | | percentages pacing and significant arrhythmias were reviewed. Heart | | | rate histograms were assessed for adequate heart rate response and any | | | alerts reviewed. Appropriate lead impedance testing was performed. | | | Pacing impedances were reviewed for any significant changes. Sensing | | | tests were performed by decreasing LRL. Adequacy of pacing thresholds | | | were tested by increasing LRL for each lead and recorded for loss of | | | capture. Final outputs were assessed for adequate safety margins. | | | Please see the scanned [facility] report and device PDF for further | | | details.Data collected by Shabana Lama RN The technical aspect of | | | downloading device data was supervised by Jonathan Jaeger MD | | | Underlying rhythm: Sinus bradycardia 42-58 beats. 1 mode switch | | | episodes accounting for <0.1% of the time. 0 atrial high rate | | | episodes. 0 ventricular high rate episodes. PVC singles 675 | | | PVC singles 337/monthPVC runs 4 PVC | | | runs 2 /monthHistogram good. Battery longevity 29 months.Normal and | | | stable device function.Quarterly remote monitoring. Device | | | interrogation due in office in 12 months. | | |adequate safety margins. | | | | | |Please see the scanned [facility] report and device PDF for further | | |details. | | |Data collected by Shabana Lama RN | | | | | |The technical aspect of downloading device data was supervised by | | |Jonathan Jaeger MD | | | | | |Underlying rhythm: Sinus bradycardia 42-58 beats. | | |1 mode switch episodes accounting for <0.1% of the time. | | |0 atrial high rate episodes. | | |0 ventricular high rate episodes. | | |PVC singles 675 PVC singles 337/month | | |PVC runs 4 PVC runs 2 /month | | |Histogram good. Battery longevity 29 months. | | |Normal and stable device function. | | |Quarterly remote monitoring. | | |Device interrogation due in office in 12 months. | | + + + + +---------+ + + | Performing | Address | City/State/Zipcode | Phone Number | | Organization | | | | + +---------+ + + | [facility] | | | | + +---------+ + + documented in this encounter Visit Diagnoses + + | Diagnosis | + + | Pacemaker reprogramming/check DO NOT DELETE - Primary Fitting and adjustment of | | cardiac pacemaker | + + | Pacemaker - Medtronic - [id number] Adapta - Implanted 06/14/2009 Cardiac pacemaker in situ | + + | Sinoatrial node dysfunction (HCC) with symptomatic bradycardia Sinoatrial node | | dysfunction | + + documented in this encounter"
--- OUTSIDE RECORDS SUMMARY | ~2019-11-01 | XMS | Encounter Summary ---
Demographics + + + | Address | [address] | | | [place] [address] | + + + | Home Phone | | + + + | Preferred Language | Unknown | + + + | Marital Status | | + + + | Catholic Affiliation | 1013 | + + + | Race | Unknown | + + + | Ethnic Group | Unknown | + + + Author + + + | Author | [facility] | | | and [place] | + + + | Organization | [facility] | | | [...] Team Providers + +------+ + | Care Home Health Travel Ot Name | Role | Phone | + +------+ + | Michael Amanda DO | PCP | | + +------+ + Reason for Visit +--------+ + | Reason | Comments | +--------+ + | Other | | +--------+ + Encounter Details +--------+ + + + + | Date | Type | Department | Care Team | Description | +--------+ + + + + | 10/09/ | Telephone | [facility] | Michael Amanda, | Other | | 2012 | | MEDICINE [place] | DO [address] | | | | | [address] | [place] | | | | | [place] | [address] | | | | | [address] | | | | | | [phone] | | | +--------+ + + + [...] W | | | | | | [place], | | | | | | [place] [address] | | | | | | [phone] | | | | | | | | +--------+ + + + + | 11/20/ | Implant | Cardiology | Daljit Singletary, | Remote Device | | 2018 | Monitor | | MD [address]iquis [place] | Interrogation | | | | | [place], | (Primary Dx); | | | | | [place] [address] | Presence of | | | | | [phone] | permanent cardiac | | | | [...]
--- OUTSIDE RECORDS SUMMARY | ~2019-11-01 | XMS | Encounter Summary ---
Demographics + + + | Address | [address] | | | [place] [address] | + + + | Home Phone | | + + + | Preferred Language | Unknown | + + + | Marital Status | | + + + | Congregational Affiliation | 1013 | + + + [...] Team Providers + +------+ + | Care Principal Security Architect Name | Role | Phone | + [...] 2016 | | CARDIOLOGY [address] | CLINICAL WRITER [address] | | | | | [place], | [place], [place] | | | | | [place] [address] | [address] | | | | | [phone] | | | +--------+--------+ + + + [...] W | | | | | | [place], | | | | | | [place] [address] | | | | | | [phone] | | | | | | | | +--------+ + + + + | 11/20/ | Implant | Cardiology | Daljit Singletary, | Remote Device | | 2018 | Monitor | | [address] | Interrogation | | | | | [place], | (Primary Dx); | | | | | [place] [address] | Presence of | | | | | [phone] | permanent cardiac | | | | [...]
--- OUTSIDE RECORDS SUMMARY | ~2019-11-01 | XMS | Encounter Summary ---
Demographics + + + | Address | [address] | | | [place] [address] | + + + | Home Phone | | + + + | Preferred Language | Unknown | + + + | Marital Status | | + + + | Restorationism Affiliation | 1013 | + + + | Race | Unknown | + + + | Ethnic Group | Unknown | + + + Author + + + | Author | [facility] | | | and [place] | + + + | Organization | [facility] | | [...] Team Providers + +------+ + | Care Cafeteria Or Lunchroom Checker Name | Role | Phone | [...] + + | 12/21/ | Office | [facility] | [place], | Chest pain (Primary | | 2013 | Visit | CARDIOLOGY [address] | [address] | Dx); Symptomatic | | | | [place], | [place], | PVCs; | | | | [place] [address] | [place] [address] | Hyperlipidemia; | | | | [phone] | [phone] | Hypertension; | | | | | [...] Sanchez is a 53 y.o. male. PCP: Michael Amanda, DO HPI Moe Sanchez is a 53 y.o. male [...] this time to see a specialist in [place] and he was to follow up with [...] MOUTH EVERY DAY 30 table t 5 Trinchera-3 Fatty Acids (SALMON OIL-1000 PO) CAPS, one [...] ventricular arrhythmia performed by Dr. Gambino at [facility] on 01/30/2013. Patient had spontaneous [...] to go back in 3 days to [place] for an attempt of ablation under general [...] weeks. He is in class II of [place] [employer] funct ional class. There are [...] tolic function, LVEF 65 to 70%. 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 documented in this encounter Plan of Treatment +--------+ + + + + | Date | Type | Specialty | Care Team | Description | +--------+ + + + + | 11/09/ | Office | Cardiology | Silvia, | | | 2019 | Visit | | [address] | | | | | | [place], | | | | | | [place] [address] | | | | | | [phone] | | | | | | | | +--------+ + + + + | 11/20/ | Implant | Cardiology | Daljit Singletary, | Remote Device | | 2019 | Monitor | | [address] [place] | Interrogation | | | | | [place], | (Primary Dx); | | | | | [place] [address] | Presence of | | | | | [phone] | permanent cardiac | | | | [...] of unspecified type of vessel, | | [place] or graft | + + documented in this encounter
--- OUTSIDE RECORDS SUMMARY | ~2019-11-01 | XMS | Encounter Summary ---
Demographics + + + | Address | [address] | | | [place] [address] | + + + | Home Phone [...] Team Providers + +------+ + | Care Slusher Operator Name | Role | Phone | [...] + + | 01/28/ | Refill | [facility] [place] | Ary, | Medication Refill | | 2014 | | CARDIOLOGY [address] | [address] | | | | | [place], | [place], | | | | | [place] [address] | [place] [address] | | | | | [phone] | [phone] | | | | | | | [...] W | | | | | | [place], | | | | | | [place] [address] | | | | | | [phone] | | | | | | | | +--------+ + + + + | 11/20/ | Implant | Cardiology | Daljit Singletary, | Remote Device | | 2019 | Monitor | | [address] [facility] | Interrogation | | | | | [place], | (Primary Dx); | | | | | [place] [address] | Presence of | | | | | [phone] | permanent cardiac | | | | [...]
--- OUTSIDE RECORDS SUMMARY | ~2019-11-01 | XMS | Encounter Summary ---
Demographics + + + | Address | [address] | | | [place] [address] | + + + | Home Phone | | + + + | Preferred Language | Unknown | + + + | Marital Status | | + + + | Faith Affiliation | 1013 | + + + | Race | Unknown | + + + | Ethnic Group | Unknown | + + + Author + + + | Author | [facility] | | | and [place] | + + + | Organization | [facility] | | [...] Team Providers + +------+ + | Care Windows Application Packager Name | Role | Phone | + [...] | +--------+ + + + + | 02/19/ | Implant | [facility] [place] | Daljit Singletary, | Remote Device | | 2019 | Monitor | CARDIOLOGY [address] | [address] | Interrogation | | | | [place], | [place], | (Primary Dx); | | | | [place] [address] | [place] [address] | Presence of | | | | [phone] | [phone] | permanent cardiac | | | | [...] | | | | | | [place] [address] | | | | | | [phone] | | | | | | | | +--------+ + + + + | 11/20/ | Implant | Cardiology | Daljit Singletary, | Remote Device | | 2019 | Monitor | | MD [address] [facility] | Interrogation | | | | | [place], | (Primary Dx); | | | | | [place] [address] | Presence of | | | | | [phone] | permanent cardiac | | | | [...] + + | DEVICE | Routin | 02/19/2019 | Remote Device | Results for this | | INTERROGATION- | e | 11:59 PM | Interrogation | procedure are in the | | REMOTE | | PDT | Presence of | results section. | [...] this encounter Results Device Interrogation - Remote (02/19/2019 11:59 PM PDT) + + + | Narrative | Performed At | + + + | Daljit | [facility] | | MD [facility] 01/11/2019 13:53Date of Remote Interrogation: | | | 12/29/18 Refer to [facility] documentation and remote PDF scanned into EPIC | | | for remote interrogation results. Data collected by Kailey Pruitt, | | | RN Presenting rhythm: sinus rhythm atrial paced ventricular sensed | | | between 83-87 beats.2 mode switch episodes accounting for <0.1% of the | | | time.0 atrial high rate episodes. 1 ventricular high rate episodes. | | | The longest occurred 09/24/18 at 1:07 PM for 3 seconds. EGM is | | | consistent with atrial tachycardia with rate 160-180 beats.PVC singles | | | 1012 PVC singles 253/monthPVC runs 8 | | | PVC runs 2/monthHistogram fair. Battery longevity 28 | | | months.Apparent normal and stable device function.Device interrogation | | | due in office in August 2019. | | |tachycardia with rate 160-180 beats. | | |PVC singles 1012 PVC singles 253/month | | |PVC runs 8 PVC runs 2/month | | |Histogram fair. Battery longevity 28 months. | | |Apparent normal and stable [...]
--- OUTSIDE RECORDS SUMMARY | ~2019-11-01 | XMS | Encounter Summary ---
Demographics + + + | Address | [address] | | | [place] [address] | + + + | Home Phone | | + + + | Preferred Language | Unknown | + + + | Marital Status | | + + + | Scientologist Affiliation | 1013 | + + + [...] Team Providers + +------+ + | Care Syrup Filterer Name | Role | Phone | + [...] + + | Closed | Specialty | Cardiology | Diagnoses | Ankit | Gemini, | | | Services | | Chest pain, | Franki | MD Daljit | | | Required | | unspecified | MD Martell | [address] | | | | | type ER | [address] | [address] | | | | | F[place] | [place] | [place], | | | | | Procedures | [place], [place] | [place] [address] | | | | | FUP - [place] & | [address] | Phone: | | | | | EVM PT, LAST | Phone: | [phone] | | | | | SEEN | [phone] | Fax: | | | | | 08-24-18 | Fax: | [phone] | | | | | | [phone] | | +--------+ + + + + + Reason for Visit + + + | Reason | Comments | + + + | Chest Pain | | + + + Encounter Details +--------+ + + + + | Date | Type | Department | Care Team | Description | +--------+ + + + + | 01/02/ | Emergency | [facility] | [facility] | Chest pain, | | 2019 | | [facility] | MD [facility]ell [address] | unspecified type | | | | CENTER [address] | [address] [place] | (Primary Dx) | | | | [place], [place] | [place] [address] | | | | | [address] | [phone] | | | | | [phone] | | | +--------+ + + + [...] + + + | Blood Pressure | 130/94 | 01/02/2019 9:29 PM | | | | | PST | | + + + + + | Pulse | 73 | 01/02/2019 9:29 PM | | | | | PST | | + + + + + | Temperature | 35.6 C (96.1 F) | 01/02/2019 6:08 PM | | | | | PST | | + + + + + | Respiratory Rate | 13 | 01/02/2019 9:29 PM | | | | | PST | | + + + + + | Oxygen Saturation | 95% | 01/02/2019 9:29 PM | | | | | PST | | + + + + + | Inhaled Oxygen | - | - | | | Concentration | | | | + + + + + | Weight | 104.3 kg (230 lb) | 01/02/2019 6:08 PM | | | | | PST | | + + + + + | Height | 193 cm (6' 4") | 01/02/2019 6:08 PM | | | | | PST | | + + + + + | Body Mass Index | 28 | 01/02/2019 6:08 PM | | | | | PST [...] documented as of this encounter Discharge Instructions AttachmentsThe following attachments cannot be sent through Care Everywhere.Chest Pain, Unc ertain Cause (Persian)documented in this encounter Medications at Time of [...] + + + +---------+ + + | Madison-3 Fatty | CAPS, one capsule by | [...] | (ZOFRAN ODT) 4 mg | every 6 hours as | | | 19 | 9 | | disintegrating | needed. | | | | | | tablet [...] + + + +---------+ + + | sodium | Take 177 mLs by | 1 kit | 0 | 12/26/19 | | | sulfate-potassium | mouth See Admin | | | 19 | 9 | | sulfate-magnesium | Instructions. Take | | | | | | sulfate (SUPREP | 1st dose at 4PM And | | | | | | BOWEL PREP KIT) oral | 2nd dose at 8PM or | | | | | | solution | later day prior to | | | | | | | procedure | | | | | + + + +---------+ + + | UNABLE TO FIND | Med Name: Pure CBD | | 0 | | 05/22/201 | | | Tincture, 100 mg at [...] [address] | | | | | | [address] [place], | | | | | | [place] [address] | | | | | | [phone] | | | | | | | | +--------+ + + + + | 11/20/ | Implant | Cardiology | Daljit Singletary, | Remote Device | | 2018 | Monitor | | [address] | Interrogation | | | | | [place], | (Primary Dx); | | | | | [place] [address] | Presence of | | | | | [phone] | permanent cardiac | | | | | | pacemaker; | | | | | | Sinoatrial node | | | | | | dysfunction (HCC) | | | | | | with symptomatic | | | | | | bradycardia | +--------+ + + + + + +------+--------+ + + | Name | Type | Priori | Associated Diagnoses | Date/Time | | | | ty | | | + +------+--------+ + + | ED INFORMATION | BRUNILDA | Routin | | 01/02/2019 6:04 PM | | EXCHANGE | | e | | PST | + +------+--------+ + + + + +--------+ + + | Name | Type | Priori | Associated Diagnoses | Order Schedule | | | | ty | | | + + +--------+ + + | Cardiology, External | Outpatient | Routin | Chest pain, | Ordered: 01/02/2019 | | - AMB Referral | Referral | e | unspecified type | | + + +--------+ + + documented as of this encounter Procedures + +--------+ + + + | Procedure Name | Priori | Date/Time | Associated Diagnosis | Comments | | | ty | | | | + +--------+ + + + | ECG 12 LEAD | STAT | 01/02/2019 | | Results for this | | | | 8:35 PM | | procedure are in the | | | | PST | | results section. | + +--------+ + + + | TROPONIN I | STAT | 01/02/2019 | | Results for this | | | | 8:23 PM | | procedure are in the | | | | PST | | results section. | + +--------+ + + + | URINALYSIS WITH | STAT | 01/02/2019 | | Results for this | | MICROSCOPIC WITH | | 7:02 PM | | procedure are in the | | CULTURE IF INDICATED | | PST | | results section. | + +--------+ + + + | DRUGS OF ABUSE, | STAT | 01/02/2019 | | Results for this | | SCREEN, URINE | | 7:02 PM | | procedure are in the | | | | PST | | results section. | + +--------+ + + + | XR CHEST AP PORTABLE | STAT | 01/02/2019 | | Results for this | | | | 6:27 PM | | procedure are in the | | | | PST | | results section. | + +--------+ + + + | TROPONIN I | STAT | 01/02/2019 | | Results for this | | | | 6:17 PM | | procedure are in the | | | | PST | | results section. | + +--------+ + + + | CBC WITH | STAT | 01/02/2019 | | Results for this | | DIFFERENTIAL | | 6:17 PM | | procedure are in the | | | | PST | | results section. | + +--------+ + + + | B TYPE NATRIURETIC | STAT | 01/02/2019 | | Results for this | | PEPTIDE | | 6:17 PM | | procedure are in the | | | | PST | | results section. | + +--------+ + + + | MAGNESIUM | STAT | 01/02/2019 | | Results for this | | | | 6:17 PM | | procedure are in the | | | | PST | | results section. | + +--------+ + + + | COMPREHENSIVE | STAT | 01/02/2019 | | Results for this | | METABOLIC PANEL | | 6:17 PM | | procedure are in the | | | | PST | | results section. | + +--------+ + + + | ECG 12 LEAD | STAT | 01/02/2019 | | Results for this | | | | 6:08 PM | | procedure are in the | | | | PST | | results section. | + +--------+ + + + documented in this encounter Results ECG 12 lead (01/02/2019 8:35 PM PST) + + + + + + | Component | Value | Ref Range | Performed | Pathologist | | | | | At | Signature | + + + + + + | VENTRICULAR | 71 | BPM | [facility] | | | RATE EKG | | | | | + + + + + + | ATRIAL RATE | 71 | BPM | [facility] | | + + + + + + | P-R | 246 | ms | [facility] | | | INTERVAL | | | | | + + + + + + | QRS | 104 | ms | [facility] | | | DURATION | | | | | + + + + + + | Q-T | 402 | ms | [facility] | | | INTERVAL | | | | | + + + + + + | Q-T | 436 | ms | [facility] | | | INTERVAL | | | | | | (CORRECTED) | | | | | + + + + + + | P WAVE AXIS | 9 | degrees | [facility] | | + + + + + + | QRS AXIS | 14 | degrees | [facility] | | + + + + + + | T AXIS | 6 | degrees | [facility] | | + + + + + + | INTERPRETAT | Atrial-paced rhythm with | | [facility] | | | ION TEXT | prolonged AV | | | | | | conductionAbnormal | | | | | | ECGWhen compared with | | | | | | ECG of 02-JAN-2019 | | | | | | 18:08, (Unconfirmed)No | | | | | | significant change was | | | | | | foundConfirmed by | | | | | | ANGELA MARADIAGA MD ([id number]) | | | | | | on 01/03/2019 8:10:39 PM | | | | + + [...] | | | + +---------+ + + Troponin I (01/02/2019 8:23 PM PST) + + + + + + | Component | Value | Ref Range | Performed | Pathologist | | | | | At | Signature | + + + + + + | Troponin I | <0.01Comment: Reference | <0.06 ng/mL | [facility] | | | | Ranges:0.00-0.06 = | | [facility] | | | | NORMAL>0.06 = | | MEDICAL | | | | SUSPICIOUS FOR | | CENTER - | | | | MYOCARDIAL DAMAGE NOTE: | | LABORATORY | | | | Values greater than 0.50 | | | | | | ng/mL have been shown | | | | | | to be strongly | | | | | | associated with acute | | | | | | myocardial infarction. | | | | | | The [employer] | | | | | | Cardiology (ACC) | | | | | | recommends a decision | | | | | | limit of 0.06 ng/mL for | | | | | | this assay. Results | | | | | | greater than 0.06 can | | | | | | reflect a pre-infarct | | | | | | acute coronary syndrome, | | | | | | but can also reflect | | | | | | myocardial necrosis or | | | | | | injury that is not due | | | | | | to coronary artery | | | | | [...] | | | | and renal failure. The | | | | | | diagnosis of myocardial | | | | | | infarction should be | | | | | | based on a combination | | | | | | of the patient's | | | | | | clinical presentation | | | | | | and the clinical | | | | | | laboratory test results | | | | | | (especially serial | | | | | | troponin levels). | | | | + + + + + + + + | Specimen | + + | Blood | + + + + + + + | Performing | Address | City/State/Zipcode | Phone Number | | Organization | | | | + + + + + | [facility] | [address] | [place] | [phone] | | [facility] | | [address] | | | - LABORATORY | | | | + + + + + Drugs of Abuse, Screen, Urine (01/02/2019 7:02 PM PST) + + + + + + | Component | Value | Ref Range | Performed | Pathologist | | | | | At | Signature | + + + + + + | Amphetamine | Negative | Negative | [facility] | | | Screen, | | | [facility] | | | Urine | | | MEDICAL | | | | | | CENTER - | | | | | | LABORATORY | | + + + + + + | Barbiturate | Negative | Negative | [facility] | | | s Screen, | | | [facility] | | | Urine | | | MEDICAL | | | | | | CENTER - | | | | | | LABORATORY | | + + + + + + | Benzodiazep | Negative | Negative | [facility] | | | queenie | | | [facility] | | | Screen, | | | MEDICAL | | | Urine | | | CENTER - | | | | | | LABORATORY | | + + + + + + | Cannabinoid | Positive (A) | Negative | [facility] | | | s Screen, | | | [facility] | | | Urine | | | MEDICAL | | | | | | CENTER - | | | | | | LABORATORY | | + + + + + + | Cocaine | Negative | Negative | [facility] | | | Screen, | | | [facility] | | | Urine | | | MEDICAL | | | | | | CENTER - | | | | | | LABORATORY | | + + + + + + | Methadone | Negative | Negative | [facility] | | | Screen, | | | [facility] | | | Urine | | | MEDICAL | | | | | | CENTER - | | | | | | LABORATORY | | + + + + + + | Opiates | Negative | Negative | [facility] | | | Screen, | | | [facility] | | | Urine | | | MEDICAL | | | | | | CENTER - | | | | | | LABORATORY | | + + + + + + + + | Specimen | + + | Urine - Urine | | specimen (specimen) | + + + + + + + | Performing | Address | City/State/Zipcode | Phone Number | | Organization | | | | + + + + + | [facility] | [address] | [place] | [phone] | | [facility] | | [address] | | | - LABORATORY | | | | + + + + + Urinalysis with Microscopic with Culture if Indicated (01/02/2019 7:02 PM PST) + + + + + + | Component | Value | Ref Range | Performed | Pathologist | | | | | At | Signature | + + + + + + | Color | Yellow | Light Yellow, | [facility] | | | | | Yellow, Straw | [facility] | | | | | | MEDICAL | | | | | | CENTER - | | | | | | LABORATORY | | + + + + + + | Clarity | Clear | Clear | [facility] | | | | | | [facility] | | | | | | MEDICAL | | | | | | CENTER - | | | | | | LABORATORY | | + + + + + + | pH, Urine | 5.0 | 5.0 - 8.0 | [facility] | | | | | | [facility] | | | | | | MEDICAL | | | | | | CENTER - | | | | | | LABORATORY | | + + + + + + | Specific | 1.011 | 1.001 - 1.030 | [facility] | | | Leonard | | | [facility] | | | | | | MEDICAL | | | | | | CENTER - | | | | | | LABORATORY | | + + + + + + | Protein, | Negative | Negative | [facility] | | | Urine | | | [facility] | | | | | | MEDICAL | | | | | | CENTER - | | | | | | LABORATORY | | + + + + + + | Blood, | Negative | Negative | [facility] | | | Urine | | | [facility] | | | | | | MEDICAL | | | | | | CENTER - | | | | | | LABORATORY | | + + + + + + | Glucose, | Negative | Negative | [facility] | | | Urine | | | [facility] | | | | | | MEDICAL | | | | | | CENTER - | | | | | | LABORATORY | | + + + + + + | Ketones, | Trace (A) | Negative | [facility] | | | Urine | | | [facility] | | | | | | MEDICAL | | | | | | CENTER - | | | | | | LABORATORY | | + + + + + + | Bilirubin, | Negative | Negative | [facility] | | | Urine | | | [facility] | | | | | | MEDICAL | | | | | | CENTER - | | | | | | LABORATORY | | + + + + + + | Nitrite, | Negative | Negative | [facility] | | | Urine | | | [facility] | | | | | | MEDICAL | | | | | | CENTER - | | | | | | LABORATORY | | + + + + + + | Leukocyte | Negative | Negative | [facility] | | | Esterase, | | | [facility] | | | Urine | | | MEDICAL | | | | | | CENTER - | | | | | | LABORATORY | | + + + + + + | Urobilinoge | Negative | 0.2 mg/dL, 1.0 | [facility] | | | n, Urine | | mg/dL, Negative | [facility] | | | | | | MEDICAL | | | | | | CENTER - | | | | | | LABORATORY | | + + + + + + | WBC UA | 0-2 | 0 - 2 /HPF | [facility] | | | | | | [facility] | | | | | | MEDICAL | | | | | | CENTER - | | | | | | LABORATORY | | + + + + + + | RBC UA | 0-2 | 0 - 2 /HPF | [facility] | | | | | | [facility] | | | | | | MEDICAL | | | | | | CENTER - | | | | | | LABORATORY | | + + + + + + | SQUAMOUS | 0-2 | 0 - 2 /LPF | [facility] | | | EPITHELIAL | | | [facility] | | | UA | | | MEDICAL | | | | | | CENTER - | | | | | | LABORATORY | | + + + + + + | BACTERIA UA | Negative | Negative /HPF | [facility] | | | | | | [facility] | | | | | | MEDICAL | | | | | | CENTER - | | | | | | LABORATORY | | + + + + + + | MUCUS UA | Present (A) | Negative /LPF | [facility] | | | | | | [facility] | | | | | | MEDICAL | | | | | | CENTER - | | | | | | LABORATORY | | + + + + + + | URINE | Urine Culture Not | | [facility] | | | COMMENT | Indicated | | [facility] | | | | | | MEDICAL | | | | | | CENTER - | | | | | | LABORATORY | | + + + + + + + + | Specimen | + + | Urine - Urine | | specimen (specimen) | + + + + + + + | Performing | Address | City/State/Zipcode | Phone Number | | Organization | | | | + + + + + | [facility] | [address] | [place] | [phone] | | [facility] | | [address] | | | - LABORATORY | | | | + + + + + XR Chest AP Portable (01/02/2019 6:27 PM PST) + + | Specimen | + + | | + + + + + | Narrative | Performed At | + + + | XR CHEST AP PORTABLE 01/02/2019 6:20 PM HISTORY: CHEST PAIN. | [facility] | | COMPARISON: 07/27/2018 Findings: The bilateral lungs are clear with | | | no evidence for pleural effusion or pneumothorax. Heart size is | | | within normal limits. Pulmonary vasculature is within normal limits. | | | Aorta is normal. Mediastinum is unremarkable. No acute osseous or | | | soft tissue abnormality identified. Cardiac pacer leads are | | | unchanged. IMPRESSION - No acute intrathoracic abnormality | | | identified. Dictated and Signed by: Alok Wolfe MD | | | Electronically signed: 01/02/2019 9:56 PM | | + + + + + | Procedure Note | + + | Kevin, Rad Results In - 01/02/2019 9:59 PM PST XR CHEST AP PORTABLE 01/02/2019 6:20 PM | | | | HISTORY: CHEST PAIN. | | | | COMPARISON: 07/27/2018 | | | | Findings: | | The bilateral lungs are clear with no evidence for pleural effusion or | | pneumothorax. Heart size is within normal limits. Pulmonary vasculature is | | within normal limits. Aorta is normal. Mediastinum is unremarkable. No acute | | osseous or soft tissue abnormality identified. Cardiac pacer leads are | | unchanged. | | | | IMPRESSION - | | No acute intrathoracic abnormality identified. | | | | Dictated and Signed by: Alok Wolfe MD | | Electronically signed: 01/02/2019 9:56 PM | + + + +---------+ + + | Performing | Address | City/State/Zipcode | Phone Number | | Organization | | | | + +---------+ + + | [facility] | | | | + +---------+ + + Magnesium (01/02/2019 6:17 PM PST) + +-------+ + + + | Component | Value | Ref Range | Performed | Pathologist | | | | | At | Signature | + +-------+ + + + | Magnesium | 2.0 | 1.8 - 2.5 mg/dL | [facility] | | | | | | [facility] | | | | | | MEDICAL | | | | | | CENTER - | | | | | | LABORATORY | | + +-------+ + + + + + | Specimen | + + | Blood | + + + + + + + | Performing | Address | City/State/Zipcode | Phone Number | | Organization | | | | + + + + + | [facility] | [address] | [place] | [phone] | | [facility] | | [address] | | | - LABORATORY | | | | + + + + + B Type Natriuretic Peptide (01/02/2019 6:17 PM PST) + +-------+ + + + | Component | Value | Ref Range | Performed | Pathologist | | | | | At | Signature | + +-------+ + + + | BNP | 15 | <100 pg/mL | [facility] | | | | | | [facility] | | | | | | MEDICAL | | | | | | CENTER - | | | | | | LABORATORY | | + +-------+ + + + + + | Specimen | + + | Blood | + + + + + + + | Performing | Address | City/State/Zipcode | Phone Number | | Organization | | | | + + + + + | [facility] | [address] | [place] | [phone] | | [facility] | | [address] | | | - LABORATORY | | | | + + + + + Troponin I (01/02/2019 6:17 PM PST) + + + + + + | Component | Value | Ref Range | Performed | Pathologist | | | | | At | Signature | + + + + + + | Troponin I | <0.01Comment: Reference | <0.06 ng/mL | [facility] | | | | Ranges:0.00-0.06 = | | [facility] | | | | NORMAL>0.06 = | | MEDICAL | | | | SUSPICIOUS FOR | | CENTER - | | | | MYOCARDIAL DAMAGE NOTE: | | LABORATORY | | | | Values greater than 0.50 | | | | | | ng/mL have been shown | | | | | | to be strongly | | | | | | associated with acute | | | | | | myocardial infarction. | | | | | | The [employer] | | | | | | Cardiology (ACC) | | | | | | recommends a decision | | | | | | limit of 0.06 ng/mL for | | | | | | this assay. Results | | | | | | greater than 0.06 can | | | | | | reflect a pre-infarct | | | | | | acute coronary syndrome, | | | | | | but can also reflect | | | | | | myocardial necrosis or | | | | | | injury that is not due | | | | | | to coronary artery | | | | | [...] | | | | and renal failure. The | | | | | | diagnosis of myocardial | | | | | | infarction should be | | | | | | based on a combination | | | | | | of the patient's | | | | | | clinical presentation | | | | | | and the clinical | | | | | | laboratory test results | | | | | | (especially serial | | | | | | troponin levels). | | | | + + + + + + + + | Specimen | + + | Blood | + + + + + + + | Performing | Address | City/State/Zipcode | Phone Number | | Organization | | | | + + + + + | [facility] | [address] | [place] | [phone] | | [facility] | | [address] | | | - LABORATORY | | | | + + + + + Comprehensive Metabolic Panel (01/02/2019 6:17 PM PST) + + + + + + | Component | Value | Ref Range | Performed | Pathologist | | | | | At | Signature | + + + + + + | Na | 136 | 136 - 149 | [facility] | | | | | mmol/L | [facility] | | | | | | MEDICAL | | | | | | CENTER - | | | | | | LABORATORY | | + + + + + + | K | 3.9 | 3.5 - 5.1 | [facility] | | | | | mmol/L | [facility] | | | | | | MEDICAL | | | | | | CENTER - | | | | | | LABORATORY | | + + + + + + | Cl | 105 | 98 - 109 mmol/L | [facility] | | | | | | [facility] | | | | | | MEDICAL | | | | | | CENTER - | | | | | | LABORATORY | | + + + + + + | CO2 | 22 (L) | 24 - 31 mmol/L | [facility] | | | | | | [facility] | | | | | | MEDICAL | | | | | | CENTER - | | | | | | LABORATORY | | + + + + + + | Anion Gap | 9 | 3 - 16 mmol/L | [facility] | | | | | | [facility] | | | | | | MEDICAL | | | | | | CENTER - | | | | | | LABORATORY | | + + + + + + | Glucose | 96 | 70 - 109 mg/dL | [facility] | | | | | | [facility] | | | | | | MEDICAL | | | | | | CENTER - | | | | | | LABORATORY | | + + + + + + | BUN | 13 | 7 - 18 mg/dL | [facility] | | | | | | [facility] | | | | | | MEDICAL | | | | | | CENTER - | | | | | | LABORATORY | | + + + + + + | Creatinine | 0.96 | 0.60 - 1.30 | [facility] | | | | | mg/dL | [facility] | | | | | | MEDICAL | | | | | | CENTER - | | | | | | LABORATORY | | + + + + + + | eGFR if not | >60Comment: GLOMERULAR | >=60 | [facility] | | | | FILTRATION | mL/min/1.73m2 | [facility] | | | HAITIAN | RATE,ESTIMATED | | MEDICAL | | | | mL/min/1.18t0Gzgb than | | CENTER - | | | | 60 Chronic kidney | | LABORATORY | | | | disease,if found over a | | | | | | 3-month period.Less than | | | | | | 15 Kidney failureFor | | | | | | | | | | | | Americans,multiply the | | | | | | calculated GFR by 1.21. | | | | | | | | | | + + + + + + | Calcium | 9.0 | 8.3 - 10.5 | [facility] | | | | | mg/dL | [facility] | | | | | | MEDICAL | | | | | | CENTER - | | | | | | LABORATORY | | + + + + + + | Albumin | 4.1 | 3.2 - 5.0 g/dL | [facility] | | | | | | [facility] | | | | | | MEDICAL | | | | | | CENTER - | | | | | | LABORATORY | | + + + + + + | Bilirubin | 0.8Comment: This is an | 0.1 - 1.5 mg/dL | [facility] | | | Total | appended report. These | | [facility] | | | | results have been | | MEDICAL | | | | appended to a previously | | CENTER - | | | | preliminary verified | | LABORATORY | | | | report. | | | | + + + + + + | Total | 6.7 | 6.0 - 7.8 g/dL | [facility] | | | Protein | | | [facility] | | | | | | MEDICAL | | | | | | CENTER - | | | | | | LABORATORY | | + + + + + + | AST | 25Comment: This is an | 10 - 42 U/L | [facility] | | | | appended report. These | | [facility] | | | | results have been | | MEDICAL | | | | appended to a previously | | CENTER - | | | | preliminary verified | | LABORATORY | | | | report. | | | | + + + + + + | ALT | 19Comment: This is an | 6 - 45 U/L | [facility] | | | | appended report. These | | [facility] | | | | results have been | | MEDICAL | | | | appended to a previously | | CENTER - | | | | preliminary verified | | LABORATORY | | | | report. | | | | + + + + + + | Alkaline | 62Comment: This is an | 40 - 110 U/L | [facility] | | | Phosphatase | appended report. These | | [facility] | | | | results have been | | MEDICAL | | | | appended to a previously | | CENTER - | | | | preliminary verified | | LABORATORY | | | | report. | | | | + + + + + + | Globulin | 2.6 | 2.1 - 3.8 g/dL | [facility] | | | | | | [facility] | | | | | | MEDICAL | | | | | | CENTER - | | | | | | LABORATORY | | + + + + + + | Albumin/Sandee | 1.6 | 0.8 - 2.0 | [facility] | | | bulin Ratio | | | [facility] | | | | | | MEDICAL | | | | | | CENTER - | | | | | | LABORATORY | | + + + + + + | BUN/Creatin | 13.5 | | [facility] | | | ine Ratio | | | [facility] | | | | | | MEDICAL | | | | | | CENTER - | | | | | | LABORATORY | | + + + + + + + + | Specimen | + + | Blood | + + + + + + + | Performing | Address | City/State/Zipcode | Phone Number | | Organization | | | | + + + + + | [facility] | [address] | [place] | [phone] | | [facility] | | [address] | | | - LABORATORY | | | | + + + + + CBC with Differential (01/02/2019 6:17 PM PST) + + + + + + | Component | Value | Ref Range | Performed | Pathologist | | | | | At | Signature | + + + + + + | WBC | 7.2 | 4.0 - 11.0 K/uL | [facility] | | | | | | [facility] | | | | | | [facility] | | | | [facility] - | | | | | | LABORATORY | | + + + + + + | RBC | 4.34 | 4.30 - 5.70 | [facility] | | | | | M/uL | [facility] | [facility] | [facility] | [facility] - | | | | | | LABORATORY | | + + + + + + | Hemoglobin | 15.2 | 13.5 - 18.0 | [facility] | | | | | g/dL | [facility] | | [facility] | | [facility] | | | | | | [facility] - | | | | | | LABORATORY | | + + + + + + | Hematocrit | 43.6 | 40.0 - 51.0 % | [facility] | | | | | | [facility] | | | | | | [facility] | | | | [facility] - | | | | | | LABORATORY | | + + + + + + | MCV | 100.5 | 83.0 - 101.0 fL | [facility] | | | | | | [facility] | | | | | | [facility] | | | | | [facility] - | | | | | | LABORATORY | | + + + + + + | MCH | 35.0 | 28.0 - 35.0 pg | [facility] | | | | | | [facility] | | | | | | [facility] | | | | | [facility] - | | | | | | LABORATORY | | + + + + + + | MCHC | 34.9 | 32.0 - 36.0 | [facility] | | | | | g/dL | [facility] | | | | | | [facility] | | | | | | [facility] - | | | | | | LABORATORY | | + + + + + + | RDW-CV | 12.5 | <15.0 % | [facility] | | | | | | [facility] | | | | | | [facility] | | | | | | [facility] - | | | | | | LABORATORY | | + + + + + + | RDW-SD | 46.5 (H) | 35.1 - 46.3 fL | [facility] | | | | | | [facility] | | [facility] | [facility] | | | | [facility] - | | | | | | LABORATORY | | + + + + + + | Platelet | 120 (L) | 140 - 440 K/uL | [facility] | | | Count | | | [facility] | | | | | | [facility] | | | | | | [facility] - | | | | | | LABORATORY | | + + + + + + | MPV | 11.2 | 6.5 - 12.4 fL | [facility] | | [facility] | | | | | [facility] - | | | | | | LABORATORY | | + + + + + + | Immature | 5.1Comment: Low PLT + | 0.9 - 11.2 % | [facility] | | | Platelet | Low IPF are consistent | | [facility] | | | Fraction | with a production | | MEDICAL | | | | disorder. Low PLT + High | | CENTER - | | | | IPF are consistent with | | LABORATORY | | | | destruction mechanism. | | | | + + + + + + | % | 62.1 | 45.0 - 82.0 % | [facility] | | | Neutrophils | | | [facility] | [facility] | | | | | | CENTER - | | | | | | LABORATORY | | + + + + + + | % | 28.1 | 20.0 - 45.0 % | [facility] | | | Lymphocytes | | | [facility] | | | [facility] | | [facility] | | | | | | CENTER - | | | | | | LABORATORY | | + + + + + + | % Monocytes | 8.0 | 4.0 - 12.0 % | [facility] | | | | | | [facility] | | | | | | [facility] | | | | | | CENTER - | | | | | | LABORATORY | | + + + + + + | % | 1.1 | 0.0 - 5.0 % | [facility] | | | Eosinophils | | | [facility] | | | | | | [facility] | | | | | | CENTER - | | | | | | LABORATORY | | + + + + + + | % Basophils | 0.6 | 0.0 - 1.0 % | [facility] | | | | | | [facility] | | | | | | [facility] | | | | | | CENTER - | | | | | | LABORATORY | | + + + + + + | % Immature | 0.1 | 0.0 - 0.4 % | [facility] | | | Granulocyte | | | [facility] | | | s | | | MEDICAL | | | | | | CENTER - | | | | | | LABORATORY | | + + + + + + | Absolute | 4.45 | 1.80 - 8.50 | [facility] | | | Neutrophils | | K/uL | [facility] | | | | | | [facility] | | | | | | CENTER - | | | | | | LABORATORY | | + + + + + + | Absolute | 2.01 | 0.60 - 3.20 | [facility] | | | Lymphocytes | | K/uL | [facility] | | | | | | [facility] | | | | | | CENTER - | | | | | | LABORATORY | | + + + + + + | Absolute | 0.57 | 0.00 - 1.00 | [facility] | | | Monocytes | | K/uL | [facility] | [facility] | | | | | | CENTER - | | | | | | LABORATORY | | + + + + + + | Absolute | 0.08 | 0.00 - 0.40 | [facility] | | | Eosinophils | | K/uL | [facility] | | | | | | [facility] | | | | | | CENTER - | | | | | | LABORATORY | | + + + + + + | Absolute | 0.04 | 0.00 - 0.10 | [facility] | | | Basophils | | K/uL | [facility] | | | | | | [facility] | | | | | | CENTER - | | | | | | LABORATORY | | + + + + + + | Absolute | 0.01 | 0.00 - 0.03 | [facility] | | | Immature | | K/uL | [facility] | | | Granulocyte | | | MEDICAL | | | s | | | CENTER - | | | | | | LABORATORY | | + + + + + + | % nRBC | 0 | 0 - 2 per 100 | [facility] | | | | | WBC's | [facility] | | | | | | [facility]ICAL | | | | | | CENTER - | | | | | | LABORATORY | | + + + + + + | Absolute | 0.00 | 0.00 - 0.01 | [facility] | | | nRBC | | K/uL | [facility] | | | | | | [facility]ICAL | | | | | | CENTER - | | | | | | LABORATORY | | + + + + + + + + | Specimen | + + | Blood | + + + + + + + | Performing | Address | City/State/Zipcode | Phone Number | | Organization | | | | + + + + + | [facility] | [address] | [place] | [phone] | | [facility] | | [address] | | | - LABORATORY | | | | + + + + + ECG 12 lead (01/02/2019 6:08 PM PST) + + + + + [...] + + + + | P-R | 218 | ms | [facility] | | | INTERVAL | | | | | + + + + + + | QRS | 106 | ms | [facility] | | | DURATION | | | | | + + + + + + | Q-T | 384 | ms | [facility] | | | INTERVAL | | | | | + + + + + + | Q-T | 426 | ms | [facility] | | | INTERVAL | | | | | | (CORRECTED) | | | | | + + + + + + | P WAVE AXIS | 2 | degrees | [facility] | | + + + + + + | QRS AXIS | 20 | degrees | [facility] | | + + + + + + | T AXIS | 9 | degrees | [facility] | | + + + + + + | INTERPRETAT | Atrial-paced rhythm with | | [facility] | | | ION TEXT | prolonged AV | | | | | | conductionAbnormal | | | | | | ECGWhen compared with | | | | | | ECG of 27-JUL-2018 | | | | | | 22:46,No significant | | | | | | change was | | | | | | foundConfirmed by | | | | | | ANGELA MARADIAGA MD ([id number]) | | | | | | on 01/03/2019 8:10:18 PM | | | | + + [...] | Diagnosis | + + | Chest pain, unspecified type - Primary | + + documented in this encounter Administered Medications + +--------+ +--------+------+------+ | Medication Order | MAR | Action | Dose | Rate | Site | | | Action | Date | | | | + +--------+ +--------+------+------+ | aluminum & magnesium | Given | 01/02/20 | 30 mLs | | | | hydroxide-simethicone (MAALOX | | 19 7:40 | | | | | PLUS REGULAR STRENGTH) 200-200-20 | | PM PST | | | | | mg/5 mL suspension 30 mL 30 mL, | | | | | | | Oral, ONCE, 01/02/19 at 1920, | | | | | | | For 1 dose, Mix lidocaine and | | | | | | | Maalox. Shake well., | | | | | | + +--------+ +--------+------+------+ +---+---+ | | | +---+---+ + +-------+ +--------+---+---+ | lidocaine (XYLOCAINE) 2% | Given | 01/02/20 | 10 mLs | | | | viscous solution 10 mL 10 mL, | | 19 7:40 | | | | | Oral, ONCE, 01/02/19 at 1920, | | PM PST | | | | | For 1 dose, Mix lidocaine and | | | | | | | MAALOX. Kalia argueta., | | | | | | + +-------+ +--------+---+---+ +---+---+ | | | +---+---+ + +-------+ +------+---+---+ | LORazepam (ATIVAN) injection 1 | Given | 01/02/20 | 1 mg | | | | mg 1 mg, Intravenous, ONCE, Mon | | 19 6:58 | | | | | 01/02/19 at 1835, For 1 dose | | PM PST | | | | + +-------+ +------+---+---+ +---+---+ | | | +---+---+ + +-------+ +--------+---+---+ | nitroglycerin (NITROSTAT) SL | Given | 01/02/20 | 0.4 mg | | | | tablet 0.4 mg 0.4 mg, | | 19 6:58 | | | | | Sublingual, ONCE, 01/02/19 at | | PM PST | | | | | 1835, For 1 dose, Maximum of 3 | | | | | | | doses in 15 minutes., | | | | | | + +-------+ +--------+---+---+ +---+---+ | | | +---+---+ + +-------+ +------+---+---+ | ondansetron (ZOFRAN) injection | Given | 01/02/20 | 4 mg | | | | 4 mg 4 mg, Intravenous, ONCE, | | 19 6:58 | | | | | 01/02/19 at 1835, For 1 dose | | PM PST | | | | + +-------+ +------+---+---+ +---+---+ | | | +---+---+ + +---------+ +---+-------+---+ | sodium chloride 0.9% (NS) | New Bag | 01/02/20 | | 100 | | | infusion at 100 mL/hr, | | 19 6:59 | | mL/hr | | | Intravenous, CONTINUOUS, Starting | | PM PST | | | | | 01/02/19 at 1835 | | | | | | + +---------+ +---+-------+---+ +---+---+ | | | +---+---+ documented in this encounter
--- OUTSIDE RECORDS SUMMARY | ~2019-11-01 | XMS | Encounter Summary ---
Demographics + + + | Address | [address] | | | [place] [address] | + + + | Home Phone | | + + + | Preferred Language | Unknown | + + + | Marital Status | | + + + | Anabaptism Affiliation | 1013 | + + + | Race | Unknown | + + + | Ethnic Group | Unknown | + + + Author + + + | Author | [facility] | | | and [place] | + + + | Organization | [facility] | | | and [...] Team Providers + +------+ + | Care Drop Hammer Operator Helper Name | Role | Phone [...] Description | +--------+--------+ + + + | 06/18/ | Refill | [facility] [place] [facility] | Michael Amanda, | Medication Refill | | 2014 | | MEDICINE [place] | DO [address] | | | | | [address] | [place] | | | | | [place], [place] | [address] | | | | | [address] | | | | | | [phone] | | | +--------+--------+ + + + [...] [address] | | | | | | [place], | | | | | | [place] [address] | | | | | | [phone] | | | | | | | | +--------+ + + + + | 11/20/ | Implant | Cardiology | Daljit Singletary, | Remote Device | | 2019 | Monitor | | [address] [place] | Interrogation | | | | | [place], | (Primary Dx); | | | | | [place] [address] | Presence of | | | | | [phone] | permanent cardiac | | | | [...]
--- OUTSIDE RECORDS SUMMARY | ~2019-11-01 | XMS | Encounter Summary ---
Demographics + + + | Address | [address] | | | [place] [address] | + + + | Home Phone [...] Team Providers + +------+ + | Care Tobacco Baler Name | Role | Phone | + +------+ + | Kirk French MD | PCP | | + +------+ + Reason for Visit + + + | Reason | Comments | + + + | Surgery Appointment | | + + + Encounter Details +--------+ + + + + | Date | Type | Department | Care Team | Description | +--------+ + + + + | 04/10/ | Telephone | [facility] | Matthew Uriarte | Surgery Appointment | | 2019 | | [address] | MD Tawanna [address] | | | | | [place], [place] | [place], [place] | | | | | [address] | [address] | | | | | [phone] | | | +--------+ + + + [...] | | | | | | [place] [address] | | | | | | [phone] | | | | | | | | +--------+ + + + + | 11/20/ | Implant | Cardiology | Daljit Singletary, | Remote Device | | 2018 | Monitor | | MD [address] | Interrogation | | | | | [place], | (Primary Dx); | | | | | [place] [address] | Presence of | | | | | [phone] | permanent cardiac | | | | [...]
--- OUTSIDE RECORDS SUMMARY | ~2019-11-01 | XMS | Encounter Summary ---
Demographics + + + | Address | [address] | | | [place] [address] | + + + | Home Phone | | + + + | Preferred Language | Unknown | + + + | Marital Status | | + + + | Yazidism Affiliation | 1013 | + + + | Race | Unknown | + + + | Ethnic Group | Unknown | + + + Author + + + | Author | [facility] | | | and [place] | + + + | Organization | [facility] | | | [...] Team Providers + +------+ + | Care Tongue And Groove Machine Operator Name | Role | Phone | + +------+ + | Michael Amanda DO | PCP | | + +------+ + Reason for Visit +--------+ + | Reason | Comments | +--------+ + | Other | Pacemaker card | +--------+ + Encounter Details +--------+ + + + + | Date | Type | Department | Care Team | Description | +--------+ + + + + | 03/08/ | Telephone | [facility] [place] | Daljit Singletary, | Other (Pacemaker | | 2013 | | CARDIOLOGY [address] | card ) | | | | [place], | [place], | | | | | [place] [address] | [place] [address] | | | | | [phone] | [phone] | | | | | | | [...] W | | | | | | [place], | | | | | | [place] [address] | | | | | | [phone] | | | | | | | | +--------+ + + + + | 11/20/ | Implant | Cardiology | Daljit Singletary, | Remote Device | | 2018 | Monitor | | [address] [facility] | Interrogation | | | | | [place], | (Primary Dx); | | | | | [place] [address] | Presence of | | | | | [phone] | permanent cardiac | | | | [...]
--- OUTSIDE RECORDS SUMMARY | ~2019-11-01 | XMS | Encounter Summary ---
Demographics + + + | Address | [address] | | | [place] [address] | + + + | Home Phone [...] Team Providers + +------+ + | Care Edge Bonder Name | Role | Phone | + +------+ + | Kirk French MD | PCP | | + +------+ + Reason for Visit +--------+ + | Reason | Comments | +--------+ + | Other | edema is blood clots | +--------+ + Encounter Details +--------+ + + + + | Date | Type | Department | Care Team | Description | +--------+ + + + + | 08/23/ | Telephone | [facility] | AnshujohnsoncherelleDaljit, | Other (edema is | | 2015 | | CARDIOLOGY [address] | MD [address] | blood clots) | | | | [place], | [place], | | | | | [place] [address] | [place] [address] | | | | | [phone] | [phone] | | | | | | | [...] [place], | | | | | | [place] [address] | | | | | | [phone] | | | | | | | | +--------+ + + + + | 11/20/ | Implant | Cardiology | Daljit Singletary, | Remote Device | | 2018 | Monitor | | [facility] | Interrogation | | | | | [place], | (Primary Dx); | | | | | [place] [address] | Presence of | | | | | [phone] | permanent cardiac | | | | [...]
--- OUTSIDE RECORDS SUMMARY | ~2019-11-01 | XMS | Encounter Summary ---
Demographics + + + | Address | [address] | | | [place] [address] | + + + | Home Phone | | + + + | Preferred Language | Unknown | + + + | Marital Status | | + + + | Worship Affiliation | 1013 | + + + [...] Team Providers + +------+ + | Care Parking Cashier Name | Role | Phone | + +------+ + | Michael Amanda DO | PCP | | + +------+ + Reason for Visit + + + | Reason | Comments | + + + | Carotid Artery | OC 2 week follow up on Ablation done 01/30/2013 CC: Michael | | Disease | DO Vasiliy | + + + | Hypertension | | + + + | Shortness of Breath | | + + + | Bradycardia | | + + + Encounter Details +--------+---------+ + + + | Date | Type | Department | Care Team | Description | +--------+---------+ + + + | 02/15/ | Office | [facility] [place] | Silvia, | Symptomatic PVCs | | 2012 | Visit | CARDIOLOGY [address] | [place] [address] | (Primary Dx); | | | | [place], | [place], | Bradycardia; HTN | | | | [place] [address] | [place] [address] | (hypertension) | | | | [phone] | [phone] | | | | | | | [...] + + + | Blood Pressure | 128/88 | 02/15/2013 8:23 AM | | | | | PDT | | + + + + + | Pulse | 64 | 02/15/2013 8:23 AM | Regular | | | | PDT | | + + + + + | Temperature | - | - | | + + + + + | Respiratory Rate | 16 | 02/15/2013 8:23 AM | | | | | PDT | | + + + + + | Oxygen Saturation | - | - | | + + + + + | Inhaled Oxygen | - | - | | | Concentration | | | | + + + + + | Weight | 120.7 kg (266 lb) | 02/15/2013 8:23 AM | Patient states | | | | PDT | | + + + + + | Height | 193 cm (6' 4") | 02/15/2013 8:23 AM | | | | | PDT | | + + + + + | Body Mass Index | 32.38 | 02/15/2013 8:23 AM | | | | | PDT | | + + + + + documented in this encounter Patient Instructions Patient Instructions Janeen Ramirez ARNP - 02/15/2013 9:30 AM PDT1. Saulzem CD 120 mg o nce a day at night for palpitations. 2. Follow up in 1 month documented in this encounter Progress Notes Janeen Ramirez ARNP - 02/15/2013 10:10 AM PDTFormatting of this note might be different f rom the original. Subjective: Cardiology Office Visit Date of Service: 02/15/2013 Patient ID: Moe Sanchez is a 53 y.o. male. PCP: Michael BOO Moe Sanchez is a 53 y.o. 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 He is being seen today for follow up on palpitatio ns. He was last seen 01/25/2013 at which time patient was going to [place] for senior publications specialist co nsult and PVC ablation. Since that time, patient underwent electrophysiologic study and und erwent a supraventricular arrhythmia. However, according to Dr. Gambino's note, despite lar ge amounts of sedation and motion patient was unable to stay still for more than 15 seconds for ablation. After repeated attempts at ablation in the areas, there was continuation of r are PVCs that seemed to be less than the initial. Dr. Gambino felt unable to safely perform or ablation due to the patient's inability to stay still and great concern of possible perf oration or damage to his conduction system. Patient needs to go back in 3 days for a reatte mpt of this procedure. Today, patient comes in with increased complaints of more symptomatic PVCs over the last we ek. Patient says that this symptoms have been importantly increased over the last for 5 day s. Patient is having extreme lightheadedness and dizziness and extreme nausea, diaphoresis and vomiting when he has his "PVC's episodes". Of note, according to Dr. Gambino's discharg e summary, he has suggested the patient's social diltiazem to try to minimize symptoms of hi s PVCs. However, patient did not want to start diltiazem at that point. Patient Active Problem List Diagnoses HYPERLIPIDEMIA BIPOLAR DISORDER UNSPECIFIED ANXIETY DEPRESSION TOBACCO USER HYPERTENSION NONDEPENDENT OPIOID ABUSE IN REMISSION CAD FIBROMYALGIA LUMBAGO CHRONIC PAIN SYNDROME THROMBOCYTOPENIA FATIGUE ABDOMINAL PAIN, UNSPECIFIED SITE NECK PAIN, CHRONIC SYNCOPE OBSTRUCTIVE SLEEP APNEA ORGANIC INSOMNIA UNSPECIFIED CENTRAL SLEEP APNEA CONDS CLASSIFIED ELSEWHERE ULCERATIVE COLITIS Chest pain SINUS BRADYCARDIA PACEMAKER, PERMANENT - MEDTRONIC 06/14/09, SUW HEPATITIS B PUD FATTY LIVER DISEASE SUBSTANCE ABUSE, MULTIPLE DEPRESSION Hypoglycemia Symptomatic PVCs Current Outpatient Prescriptions Medication Sig Dispense Refill dronabinol (MARINOL) 10 MG capsule Take 10 mg by mouth 2 times daily (before meals). oxyCODONE 10 MG TABS Take 5-10 mg by mouth every 4 hours as needed. metoprolol succinate (TOPROL-XL) 200 MG 24 hr [...] tablet Take 1,000 mg by mouth Daily. Holcomb-3 Fatty Acids (SALMON OIL-1000 PO) CAPS, one capsule by mouth daily twice daily MELATONIN TABS, at bedtime as needed promethazine (PHENERGAN) 25 mg tablet Take 25 mg by mouth every 8 hours as needed. diphenhydrAMINE (BENADRYL) 25 MG capsule Take 25 mg by mouth as needed. morphine (MS CONTIN) 15 mg 12 hr tablet Take 15 mg by mouth 2 times daily. diltiazem (CARDIZEM CD) 120 mg 24 hr capsule Take 1 capsule by mouth Daily. 30 capsule 6 gabapentin (NEURONTIN) 600 MG tablet Take 600 mg by mouth 3 times daily. glucose blood test strips (ONE TOUCH ULTRA TEST) strip Check glucose for symptomatic hypoglycemia prn 30 each 2 Allergies Allergen Reactions Alcohol-Fentanyl Clarithromycin Duloxetine Hydrocodone Penicillins Tramadol Hcl Review of Systems Constitutional: Positive for activity change (he feels limited due to the symptoms from pal pitations). Negative for fatigue and unexpected weight change. Respiratory: Positive for chest tightness (when having palpitations). Negative for shortnes s of breath. Cardiovascular: Positive for palpitations. Negative for chest pain and leg swelling. Gastrointestinal: Positive for nausea and vomiting. Negative for abdominal pain and abdomin al distention. Neurological: Positive for dizziness, syncope, weakness and light-headedness. Hematological: Negative. Psychiatric/Behavioral: Positive for agitation. The patient is nervous/anxious. Objective: Physical Exam Constitutional: He is oriented to person, place, and time. He appears well-developed and we ll-nourished. adult male anxious, pacing Neck: No hepatojugular reflux and no JVD [...] not exh ibit a depressed mood. BP 128/88 | Pulse 64 | Resp 16 | Ht 1.93 m (6' 4") | Wt 120.657 kg (266 lb) | BMI 32.38 kg/ m2 ECG: Not done this visit. LAB: not applicable Reviewed records from PCP. Assessment: 1. Symptomatic PVCs status post attempted ablation: A. 48-hour Holter monitor from 01/20/10 shows predominant normal sinus rhythm with DDD pacin g noted, heart rate 60 to 155 beats per minute, average 87 beats per minute; occasional barbara ature atrial contractions, including rare couplets; very frequent premature ventricular cont ractions with occasional ventricular bigeminy noted. B. EP study and ablation for ventricular arrhythmia performed by Dr. Gambino at [facility] on 01/30/2013. Patient had spontaneous PVCs from 3 predominant morphology of left bundle branch block. Unfortunately, patient did have difficulty laying still durin g the procedure despite large amounts of sedation and coaching. After repeated attempts at ablation in one particular area, the patient continues to have rare PVCs, although, definite ly less than pre procedure. Patient tolerated the procedure, pacemaker was programmed to AA IR/DDDR lower rate of 78. And diltiazem was added to the regimen as well. However, patient decided not to started diltiazem. Patient is scheduled to go back in 3 days to [place] for an attempt of ablation under general anesthesia. C. Today patient reports an increase in the severity of symptoms of palpitations. Palpit ations are occurring daily mostly around noon. Patient symptoms included diaphoresis, nause a, vomiting and severe anxiety. He has noticed that the chest pain and shortness of breath h as decreased slightly. Otherwise, there is no signs and symptoms of overt congestive heart f ailure. He is in a class II of 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 There is no fl uid retention on physical examination. Patient is to go back in 3 days for another attempt at the ablation procedure. I have dis cussed lengthy the side effects and possible benefit of trying diltiazem it was suggested by Dr. Gambino to try to minimize symptoms in the meantime. Patient has agreed to try diltiaz em. 2. Chest pain. A. Normal exercise sestamibi [...] tricuspid valve regurgitation. C. Today patient refers no chest pain. 3. Profound bradycardia associated with dizziness, lightheadedness, and syncope: A. The echocardiogram on 05/25/09 revealed a normal left ventricular size and systolic funct ion, LVEF 65 to 70%. B. Medtronic DDD permanent pacemaker implantation on 06/14/[address] Daljit Singletary. C. His device interrogation in last visit shows normal and stable function. 4. Hypertension. A. Today blood pressure is well controlled. 5. Lightheadedness and dizziness/ presyncope: A. Episode of presyncope 05/28/10 evaluated in the emergency department, thought to have vas ovagal symptoms. B.Today patient continues with complaints of lightheadedness, dizziness and syncope that h as interfere with his daily activities when he is suffering from symptomatic palpitations. 6. History of cigarette smoking. 7. Bipolar disease with anxiety/depression. Plan: 1. Cardizem CD 120 mg by mouth once a day for tachycardia. 2. Check blood pressure and pulse twice daily for two weeks and return the log to our offic e. 3. Patient has been encouraged to keep his appointment with senior publications specialist this coming y to attempt ablation therapy. 4. Follow up appointment in 4-6 weeks. I, PARISA Russell, saw this patient under the direct supervision of Daljit Singletary MD Portions of this report were transcribed using voice recognition software. Every effort wa s made to ensure accuracy; however, inadvertent computerized hack saw operator errors may be pre sent. documented in this encounter Plan of Treatment +--------+ + + + + | Date | Type | Specialty | Care Team | Description | +--------+ + + + + | 11/09/ | Office | Cardiology | Silvia, | | | 2019 | Visit | | PARISA [place] [address] | | | | | | [place], | | | | | | [place] [address] | | | | | | [phone] | | | | | | | | +--------+ + + + + | 11/20/ | Implant | Cardiology | Daljit Singletary, | Remote Device | | 2019 | Monitor | | [address] [facility] | Interrogation | | | | | [place], | (Primary Dx); | | | | | [place] [address] | Presence of | | | | | [phone] | permanent cardiac | | | | [...] Other premature beats | + + | Bradycardia Other specified cardiac dysrhythmias | + + | HTN (hypertension) Unspecified essential hypertension | + + documented in this encounter
--- OUTSIDE RECORDS SUMMARY | ~2019-11-01 | XMS | Encounter Summary ---
Demographics + + + | Address | [address] | | | [place] [address] | + + + | Home Phone [...] Team Providers + +------+ + | Care Ampoule Filler And Sealer Name | Role | Phone | + +------+ + | Michael Amanda DO | PCP | | + +------+ + Reason for Visit + + + | Reason | Comments | + + + | Follow-up | | + + + | Tachycardia | | + + + | Device Check | | + + + | Bradycardia | Sick Sinus Syndrome | + + + | Coronary Artery | | | Disease | | + + + | Hypertension | | + + + Encounter Details +--------+---------+ + + + | Date | Type | Department | Care Team | Description | +--------+---------+ + + + | 09/05/ | Office | [facility] | Geri Angel, | SINUS BRADYCARDIA | | 2012 | Visit | CARDIOLOGY [address] | AREA MANAGER [address] | (Primary Dx); | | | | [address] [place], | [address] [place], [place] | Symptomatic PVCs; | | | | [place] [address] | [address] | Hypertension; | | | | [phone] | | Hyperlipidemia | +--------+---------+ + + [...] + + + | Blood Pressure | 132/78 | 09/05/2013 2:27 PM | | | | | PDT | | + + + + + | Pulse | 80 | 09/05/2013 2:27 PM | | | | | PDT | | + + + + + | Temperature | - | - | | + + + + + | Respiratory Rate | 14 | 09/05/2013 2:27 PM | | | | | PDT | | + + + + + | Oxygen Saturation | - | - | | + + + + + | Inhaled Oxygen | - | - | | | Concentration | | | | + + + + + | Weight | 121.6 kg (268 lb) | 09/05/2013 2:27 PM | | | | | PDT | | + + + + + | Height | 193 cm (6' 4") | 09/05/2013 2:27 PM | | | | | PDT | | + + + + + | Body Mass Index | 32.62 | 09/05/2013 2:27 PM | | | | | PDT | | + + + + + documented in this encounter Patient Instructions Patient Instructions Geri Angel ARNP - 09/05/2013 3:13 PM PDT1. Start taking magnesi um (citrate is best version, oxide is easier to find, either will work). The goal is to zeynep e 500 mg daily, but some people are sensitive to magnesium and may need to work up to that d ose to minimize loose stools. Start with about 250 mg daily, and increase by 250 mg daily a fter about 1 to 2 weeks. If you develop loose stools, cut back to previous dose and wait an other couple weeks before trying to increase again. Magnesium can decrease premature ventri cular contractions, and if you feel like you are tolerating 500 mg daily and that it helps b ut not perfectly, then you can take it twice daily. 2. Let us know if your symptoms worsen, and we can look at increasing diltiazem and/or ref er you to electrophysiology in [place]. 3. Return in 3 months, or sooner with concerns. documented in this encounter Progress Notes Geri Angel ARNP - 09/05/2013 2:44 PM PDTFormatting of this note might be different fr om the original. Subjective: Cardiology Office Visit Date of Service: 09/05/2013 Patient ID: Moe Sanchez is a 53 y.o. male. PCP: Michael Amanda, DO HPI Moe Jaimee Sanchez is a 53 y.o. 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 He is being seen today for follow up and device interrogation. He was last seen 04/2013 at which time he had no changes in his medical regimen. Since that time, he did not followup with electrophysiology in [place], so he has remained on diltiaze m rather than having this discontinued as planned by electrophysiology. He reports that he was feeling really well up until last week when he had a recurrent episode of palpitations. He reports that for a period of about 4 days he could feel "fluttering" and "skipped beats" like he had when he was having his frequent premature ventricular contractions. During thi s time he felt very tired, lightheaded and weak. He would feel short of breath if he tried to exert too much. After the 4 days his symptoms resolved and have not recurred. He does n ot notice any chest pain or shortness of breath at rest or with exertion although he does paulino ve chronic back pain and does not exert significantly due to this. He has not had any recur rent palpitations since his episode stopped. He has not had lightheadedness or dizziness ve ry much at other times, and only when he stands up quickly. He has not had any leg swelling . He is able to sleep laying flat at night without any symptoms of shortness of breath. Patient Active Problem List Diagnosis Hyperlipidemia BIPOLAR [...] Hypoglycemia Symptomatic PVCs Tachycardia Preventative health care Past Surgical History Procedure Date Knee surgery 2004 meniscus-right Laminectomy 1991 L3-4 Lumbar discectomy 1992 L3-4 Appendectomy 2005 [place] Sinus surgery 1998 Lumbar fusion 01/2011 Pacemaker placement 06/14/09 Neck fusion 08/10/2012 [place] Ablation 04/03/13 Shoulder surgery 03/22/13 Family History Problem Relation Age of Onset Cancer Father colon,prostate Family Status Relation Status Age Mother 62 NE Father Alive Unknown health Brother Alive Sister Alive Sister Alive Sister Alive Sister Alive History Social History Marital Status: Spouse Name: Andreia Number of Children: 2 Years of Education: 12 Occupational History disabled Disabled Social History Main Topics Smoking status: Former Smoker Types: Cigars Quit date: 06/12/2009 Smokeless tobacco: Never Used Comment: 1 cigar twice a year for 30 (when he went fishing) Alcohol Use: Yes Drug Use: No Sexually Active: Yes -- Female partner(s) to Andreia Other Topics Concern None Social History Narrative Exercise: none currently, due to pain in feetCaffeine:NoneLiving situation: lives at home with Andreia in own home Current Outpatient Prescriptions Medication Status Sig Dispense Refill Ascorbic Acid (VITAMIN C) 1000 MG tablet Active Take 1,000 mg by mouth Daily. aspirin 81 MG tablet Active Take 81 mg by mouth Daily. diazepam (VALIUM) 5 mg tablet Active Take 2.5 mg by mouth 2 times daily. diltiazem (CARDIZEM CD) 120 mg 24 hr capsule Active Take 1 capsule by mouth Daily. 30 capsule 6 diphenhydrAMINE (BENADRYL) 25 MG capsule Active Take 25 mg by mouth as needed. dronabinol (MARINOL) 10 MG capsule Active Take 10 mg by mouth 2 times daily (before denzel ls). gabapentin (NEURONTIN) 600 MG tablet Active Take 600 mg by mouth 3 times daily. glucose blood test strips (ONE TOUCH ULTRA TEST) strip Active Check glucose for symp tomatic hypoglycemia prn 30 each 2 HYDROmorphone (DILAUDID) 4 MG tablet Active Take 4 mg by mouth every 4 hours as needed. Done by his pain clinic MELATONIN Active TABS, at bedtime as needed metoprolol succinate (TOPROL-XL) 200 MG 24 hr tablet Active Take 1 tablet by mouth Ken y. 30 tablet 6 Novelty-3 Fatty Acids (SALMON OIL-1000 PO) Active CAPS, one capsule by mouth daily twice daily ONE TOUCH DELICA LANCETS MISC Active Check glucose as needed for hypoglycemia 100 each 3 pravastatin (PRAVACHOL) 40 MG tablet Active Take 1 tablet by mouth nightly. 90 tablet 3 promethazine (PHENERGAN) 25 mg tablet Active Take 25 mg by mouth every 8 hours as neede d. UNCODED MEDICATION Active Diagnosis: Obstructive Sleep Apnea ICD-9: 327.23 Length of Need: 99 Months 1 Device 0 valACYclovir (VALTREX) 500 mg tablet Active Take 1 tablet daily 90 tablet 3 Allergies Allergen Reactions Alcohol-Fentanyl Clarithromycin Duloxetine Hydrocodone Penicillins Tramadol Hcl Review of Systems Constitutional: Positive for fatigue. Negative for unexpected weight change. Respiratory: Negative for chest tightness and shortness of breath (not usually, only during PVC episode). Cardiovascular: Positive for palpitations. Negative for chest pain and leg swelling. Gastrointestinal: Negative for abdominal pain. Neurological: Positive for light-headedness. Negative for syncope. Objective: Physical Exam Constitutional: He is oriented to person, place, and time. He appears well-developed and we ll-nourished. Adult male in no acute distress Neck: No hepatojugular reflux and no JVD present. Carotid bruit is not present. Cardiovascular: Normal rate, regular rhythm, S1 normal, S2 normal and intact distal pulses. No extrasystoles are present. PMI is not displaced. Exam reveals no gallop, no S3, no S4 , no distant heart sounds and no friction [...] bowel sounds are normal. He exhibits no pulsatile midline mass. There is no tenderness. Musculoskeletal: He exhibits no edema. Neurological: He is alert and oriented to person, place, and time. Skin: No cyanosis. Nails show no clubbing. Psychiatric: He has a normal mood and affect. His mood appears not anxious. He does not exh ibit a depressed mood. BP 132/98 | Pulse 80 | Resp 14 | Ht 1.93 m (6' 4") | Wt 121.564 kg (268 lb) | BMI 32.62 kg/ m2 EC09/05/13: Sinus rhythm atrial paced, ventricular sensed with a rate of 75 beats per mi nute. LAB RESULTS: LIPID Lab Results Component Value Date CHOL 160 08/08/2013 TRIG 63 08/08/2013 LDLCALC 173* 05/27/2012 HDL 51.0* 08/08/2013 CHEMISTRY Lab Results Component Value Date GLU 80 08/08/2013 NA 151 08/08/2013 K 4.4 08/08/2013 CL 115 08/08/2013 CO2 29 08/08/2013 CALCIUM 9.1 08/08/2013 ALKPHOS 63 08/08/2013 AST 26 12/12/2012 ALT 22 12/12/2012 BILITOT 0.5 08/08/2013 CREA 0.75 04/03/2013 BUN 15 08/08/2013 EGFR >60 08/08/2013 HEMATOLOGY Lab Results Component Value Date WBC 4.5 04/03/2013 HGB 15.3 04/03/2013 HCT 43.5 04/03/2013 PLT 141* 04/03/2013 I personally reviewed records from another healthcare provider. PACEMAKER / ICD PARAMETERS Name: Moe Sanchez Date: September 05, 2013 : 1960 Benefits Consultant: PARISA Velazquez Device Senior Mainframe Programmer Analyst: [employer]Cardless Sense (mV) Impedance (?) Capture (V) Capture (ms) A Lead 4-5.6 417 1.5 0.12 RV Lead >31.36 533 2.0 0.09 LV Lead Battery Impedance (?): 452 Battery Voltage (V): 2.79 AL Interval (ms): 162 AR Interval (ms): 245 VA Conduction: Mode Switch Events: 1 % of time: <0.1 -PROMOTION MANAGER: <0.1% AP-PROMOTION MANAGER: 0.1% -VS: 22.7% AP-VS: 77.1% PROMOTION MANAGER: Magnetic Rate: 85 LINDA: 65 LEAH: Current Underlying Rhythm: Sinus bradycardia with rate of 48-53 beats per minute Mode: AAIR-DDDR AMS (bpm): 175 Rate (bpm): 70 Sensor (on/off): on Max Track (bpm): 130 Upper Sensor Rate (bpm): 130 Hysteresis: Paced AV Delay (ms): 150 Circadian: Sensed AV Delay (ms): 120 PVARP (ms): 310 Sensitivity (mV) Pulse Amplitude (V) Pulse Width (ms) A Lead 0.7 1.5 0.40 RV Lead 5.6 2.0 0.40 LV Lead Comments: Events: None. Single PVCs: 1432. PVC runs: 3. PAC runs: 1. Heart rate histogram shows good distribution. Normal and stable device function. Estimated remaining device longevity is 7.5 years. Remote monitoring: None. Assessment: 1. Symptomatic PVCs status post ablation: A. 48-hour Holter monitor [...] to go back in 3 days to [place] for an attempt of ablation under general [...] to further interviews any more PVCs. D. Today patient reports an episode of palpitations last week, but it is resolved and not recurred. Otherwise he has not had any recurrent palpitations ever since his ablation. He is upgraded to class I of [place] 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 There are no signs or symptoms of overt congestive heart failure. There is no fluid retention on physical examin ation. Patient continues on diltiazem and metoprolol, and at this point as he had a recurre nt episode last week will continue him on both of these medications. As this is the only br eakthrough episode he has had he does not require a medication increase at this time. 2. Chest pain. A. Normal exercise sestamibi [...] regurgita tion. Mild tricuspid valve regurgitation. C. Today patient denies chest pain. 3. Profound bradycardia associated with [...] 7. Bipolar disease with anxiety/depression Plan: 1. He will continue with his current medical regimen. He is advised taking magnesium supp lement may improve his ventricular ectopy. 2. He will monitor his symptoms to notify us if they worsen at which time we would conside r adjusting his medication versus referring him back to electrophysiology for followup. He reports that he would like to see electrophysiology in [place] rather than [place] as he paulino s family there, if he requires electrophysiology referral again. 3. He will followup in 3 months for an office visit, or sooner with concerns. He will hav e a repeat device interrogation in 6 months or sooner if needed. I, PARISA Velazquez, saw this patient under the direct supervision of Daljit Singletary MD Portions of this report were transcribed using voice recognition software. Every effort wa s made to ensure accuracy; however, inadvertent computerized head start director errors may be pre sent. Electronically signed by: PARISA Walton 09/06/2013 17:35 documented in this encounter Plan of Treatment [...] | | | | | | [place] [address] | | | | | | [phone] | | | | | | | | +--------+ + + + + | 11/20/ | Implant | Cardiology | Daljit Singletary, | Remote Device | | 2019 | Monitor | | MD [address] [facility] | Interrogation | | | | | [place], | (Primary Dx); | | | | | [place] [address] | Presence of | | | | | [phone] | permanent cardiac | | | | [...] Device Interrogation | Cardiac | Routin | SINUS BRADYCARDIA | Ordered: 09/06/2013 | | | Implant | e | Symptomatic PVCs | | | | | | Hypertension | | | | | | Hyperlipidemia | | + + +--------+ + + | ECG 12 lead | ECG | Routin | SINUS BRADYCARDIA | Ordered: 09/06/2013 | | | | e | Symptomatic PVCs | | | | | | Hypertension | | | | | | Hyperlipidemia | | + + +--------+ + + documented as of this encounter Procedures + +--------+ + + + | Procedure Name | Priori | Date/Time | Associated Diagnosis | Comments | | | ty | | | | + +--------+ + + + | ECG - EXTERNAL SCAN | | 09/05/2013 | | Results for this | | | | 12:00 AM | | procedure are in the | | | | PDT | | results section. | + +--------+ + + + documented in this encounter Results ECG - EXTERNAL SCAN (09/05/2013 12:00 AM PDT) + + + | Narrative | Performed At | + + + | Ordered by an | | | unspecified provider. | | + + + + + | Transcriptions | + + | Christoph Meloalberto - 09/05/2013 12:00 AM PDT | + + documented [...]
--- OUTSIDE RECORDS SUMMARY | ~2019-11-01 | XMS | Encounter Summary ---
Demographics + + + | Address | [address] | | | [place] [address] | + + + | Home Phone [...] Team Providers + +------+ + | Care Assembling Fabricator Name | Role | Phone | + +------+ + | Michael Amanda DO | PCP | | + +------+ + Reason for Visit +--------+ + | Reason | Comments | +--------+ + | Other | Patient wants to be referred sooner | +--------+ + Encounter Details +--------+ + + + + | Date | Type | Department | Care Team | Description | +--------+ + + + + | 09/08/ | Telephone | [facility] [place] | Geri Angel, | Other (Patient wants | | 2012 | | CARDIOLOGY [address] | PUMP OILER [address] | to be referred | | | | [address] [place], | [address] [place], [place] | soon) | | | | [place] [address] | [address] | | | | | [phone] | | | +--------+ + + + [...] W | | | | | | [place], | | | | | | [place] [address] | | | | | | [phone] | | | | | | | | +--------+ + + + + | 11/20/ | Implant | Cardiology | Daljit Singletary, | Remote Device | | 2018 | Monitor | | [address] | Interrogation | | | | | [place], | (Primary Dx); | | | | | [place] [address] | Presence of | | | | | [phone] | permanent cardiac | | | | [...]
--- OUTSIDE RECORDS SUMMARY | ~2019-11-01 | XMS | Encounter Summary ---
Demographics + + + | Address | [address] | | | [place] [address] | + + + | Home Phone [...] Team Providers + +------+ + | Care Seating Captain Name | Role | Phone | + [...] + + + + | 03/02/ | Telephone | [facility] [place] | Daljit Singletary, | Other | | 2013 | | CARDIOLOGY [address] | MD [address] | | | | | [place], | [place], | | | | | [place] [address] | [place] [address] | | | | | [phone] | [phone] | | | | | | | [...] W | | | | | | [place], | | | | | | [place] [address] | | | | | | [phone] | | | | | | | | +--------+ + + + + | 11/20/ | Implant | Cardiology | Daljit iSngletary, | Remote Device | | 2018 | Monitor | | MD [address] | Interrogation | | | | | [place], | (Primary Dx); | | | | | [place] [address] | Presence of | | | | | [phone] | permanent cardiac | | | | [...]
--- OUTSIDE RECORDS SUMMARY | ~2019-11-01 | XMS | Encounter Summary ---
Demographics + + + | Address | [address] | | | [place] [address] | + + + | Home Phone [...] Team Providers + +------+ + | Care Property Underwriter Name | Role | Phone | + +------+ + | Michael Amanda DO | PCP | | + +------+ + Reason for Visit + + + | Reason | Comments | + + + | New Patient | throat | + + + Encounter Details +--------+---------+ + + + | Date | Type | Department | Care Team | Description | +--------+---------+ + + + | 09/13/ | Office | [facility] | Bahman Gant MD | Other dysphagia | | 2013 | Visit | OTOLARYNGOLOGY [address] | [address] [place] | (Primary Dx) | | | | [address] | [address] [place], | | | | | [place], [place] | [place] [address] | | | | | [address] | [phone] | | | | | [phone] | | | +--------+---------+ + + + [...] + + + | Blood Pressure | - | - | | + [...] Weight | 121.6 kg (268 lb) | 09/13/2013 2:38 PM | | | | | PDT | | + + + + + | Height | 190.5 cm (6' 3") | 09/13/2013 2:38 PM | | | | | PDT | | + + + + + | Body Mass Index | 33.5 | 09/13/2013 2:38 PM | | | | | PDT | | + + + + + documented in this encounter Progress Notes Bahman Gant MD - 09/13/2013 5:46 PM PDTSee dictation #[id number] signed by Joseph Gant MD at 09/13/2013 5:52 PM Bahman Lamb MD - 09/13/2013 12:00 AM PDT ENT AND AUDIOLOGY [address] [facility] [address] [place] [address] FAX: [phone] OFFICE VISIT The patient gives a history of having had a neck surgery in the front part twice and then h as had a surgery on the back of his neck all working on his cervical vertebrae to stabilize the neck. After the right neck surgery, the patient has had problems with aspirating foods . He tends to do a lot of coughing every time he eats and sometimes it is quite severe. Thi s has been present now probably at least a year or more. His voice did not seem to change, particularly, but just the problems with swallowing. No other problems at the current time. PHYSICAL EXAMINATION GENERAL: The examination shows an alert 53-year-old male. He is communicating well. Voice quality seems good. HEENT: Skin of the face, nose, and ears all appear to be healthy. His parotid and submandib ular gland areas are smooth. Facial movement is symmetrical, without any weakness noted. Ea r canals are open, they are clean. The drums are clear. There is no middle ear fluid or dis ease noted. Nasal passages: No obstruction. No mass or lesion seen on either side. Left gavi e of the nose was then sprayed well with some Ernie-Synephrine and topical Xylocaine. Floor o f the mouth, buccal mucosa, hard palate, teeth, lips and gums all appear stable. No mass se en in the oropharynx. Posterior pharyngeal wall was smooth. He has a good gag reflex. Tongu e and soft palate are healthy appearing. NECK: There are no masses or lymphadenopathy palpated. Thyroid gland was smooth. Trachea is midline. The special procedure was then carried out. The fiberoptic scope was used. It was passed t hrough the left nasal passage without difficulty. No mass or lesion in this passage or in th e nasopharynx. Rosenmueller's fossae are open and clear. Eustachian tube openings appear to be healthy. Posterior and lateral pharyngeal colby were smooth. Base of the tongue, vallec gato, and epiglottis, there is no mass or lesion or evidence of infection. Vocal cords appea r to be smooth. His right vocal cord moves vigorously. The left appears to be partially par alyzed in that it does not move near as well as the one on the left. No interarytenoid keny a. No evidence of laryngopharyngeal reflux even though the patient has heartburn about once a week. Piriform sinuses were smooth and no other abnormalities are noted. The scope was t hen removed. IMPRESSION: DYSPHAGIA SECONDARY TO RIGHT VOCAL CORD DYSFUNCTION. PLAN: The patient will work with speech therapy to evaluate his swallowing ability and to t ry to figure out the best way for him not to be choking on his food. The patient has been encouraged also to use Prilosec on a daily basis rather than waiting for heartburn and then trying to stop it with the use of Prilosec. Bahman Gant MD GM / MS JOB #: [id number] signed by Bahman Gant MD at 09/14/2013 12:08 PM PDTdocumente d in this encounter Plan of Treatment +--------+ + + + + | Date | Type | Specialty | Care Team | Description | +--------+ + + + + | 11/09/ | Office | Cardiology | Silvia, | | | 2018 | Visit | | PARISA Vernon [address] | | | | | | [place], | | | | | | [place] [address] | | | | | | [phone] | | | | | | | | +--------+ + + + + | 11/20/ | Implant | Cardiology | Daljit Singletary, | Remote Device | | 2019 | Monitor | | [address] [facility] | Interrogation | | | | | [place], | (Primary Dx); | | | | | [place] [address] | Presence of | | | | | [phone] | permanent cardiac | | | | [...] | | + +---------+--------+ + + | FL Video Swallow w | Imaging | Routin | Other dysphagia | Expected: | | Speech | | e | | 09/13/2013, Expires: | | | | | | 09/13/2014 | + +---------+--------+ + + documented as of this encounter Visit Diagnoses + + | Diagnosis | + + | Other dysphagia - Primary | + + documented in this encounter
--- OUTSIDE RECORDS SUMMARY | ~2019-11-01 | XMS | Encounter Summary ---
Demographics + + + | Address | [address] | | | [place] [address] | + + + | Home Phone | | + + + | Preferred Language | Unknown | + + + | Marital Status | | + + + | Faith Affiliation | 1013 | + + + | Race | Unknown | + + + | Ethnic Group | Unknown | + + + Author + + + | Author | [facility] | | | and [place] | + + + | Organization | [facility] | | [...] Team Providers + +------+ + | Care Supervisor Metal Furniture Fabrication Name | Role | Phone | + +------+ + | Kirk French MD | PCP | | + +------+ + Reason for Visit + + + | Reason | Comments | + + + | Medication | | | Recommendations | | + + + Encounter Details +--------+ + + + + | Date | Type | Department | Care Team | Description | +--------+ + + + + | 07/27/ | Telephone | [facility] [place] | Emmanuel Daniel MD | Medication | | 2019 | | GASTROENTEROLOGY | [address], [place] | Recommendations | | | | [address] [place] | [address] [place], [place] | | | | | [address] [place], [place] | [address] | | | | | [address] | | | | | | [phone] | | | +--------+ + + + [...] [place], | | | | | | [place] [address] | | | | | | [phone] | | | | | | | | +--------+ + + + + | 11/20/ | Implant | Cardiology | Daljit Singletary, | Remote Device | | 2018 | Monitor | | [address] | Interrogation | | | | | [place], | (Primary Dx); | | | | | [place] [address] | Presence of | | | | | [phone] | permanent cardiac | | | | [...]
--- OUTSIDE RECORDS SUMMARY | ~2019-11-01 | XMS | Encounter Summary ---
Demographics + + + | Address | [address] | | | [place] [address] | + + + | Home Phone [...] Team Providers + +------+ + | Care Laundry Machine Mechanic Name | Role | Phone | + +------+ + PCP | Unavailable | + +------+ + Encounter Details +--------+ + + + + | Date | Type | Department | Care Team | Description | +--------+ + + + + | 09/24/ | [facility] | [facility] | Evan Gandara MD | | | 2005 | Encounter | MED CTR XRAY [address] | [address] [facility] | | | | | [place] | [place] | | | | | [place] [address] | [address] | | | | | [phone] | | | +--------+ + + + [...] | | | | | | [place] [address] | | | | | | [phone] | | | | | | | | +--------+ + + + + | 11/20/ | Implant | Cardiology | Daljit Singletary, | Remote Device | | 2018 | Monitor | | MD [address] | Interrogation | | | | | [place], | (Primary Dx); | | | | | [place] [address] | Presence of | | | | | [phone] | permanent cardiac | | | | [...]
--- OUTSIDE RECORDS SUMMARY | ~2019-11-01 | XMS | Encounter Summary ---
Demographics + + + | Address | [address] | | | [place] [address] | + + + | Home Phone [...] Providers + +------+ + | Care Retail Event And Sales Assistant Name | Role | Phone | + +------+ + | Kirk French MD | PCP | | + +------+ + Encounter Details +--------+ + + + + | Date | Type | Department | Care Team | Description | +--------+ + + + + | 07/21/ | Hospital | [facility] | Daljit Singletary, | | | 2018 | Encounter | MED CTR NUCLEAR | MD [address] | | | | | MEDICINE [address] | [address] [place], | | | | | [place], | [place] [address] | | | | | [place] [address] | [phone] | | | | | [phone] | | | +--------+ + + + [...] 1 times a | | 0 | /08/11 | | | (BLOOD GLUCOSE TEST | [...] + + + +---------+ + + | [place]-3 Fatty | CAPS, one capsule by | [...] | | | | | | [place] [address] | | | | | | [phone] | | | | | | | | +--------+ + + + + | 11/20/ | Implant | Cardiology | Daljit Singletary, | Remote Device | | 2019 | Monitor | | [address] [facility] [place], [place] | Interrogation | | | | | [place], | (Primary Dx); | | | | | [place] [address] | Presence of | | | | | [phone] | permanent cardiac | | | | [...] Diagnoses Not on filedocumented in this encounter Administered Medications + +--------+ + +------+------+ | Medication Order | MAR | Action | Dose | Rate | Site | | | Action | Date | | | | + +--------+ + +------+------+ | technetium [id number] sestamibi | Given | 07/21/20 | 29.9 | | | | (CARDIOLITE) injection 29.9 | | 18 12:24 | millicur | | | | millicurie 29.9 millicurie, | | PM PDT | ies | | | | Intravenous, ONCE PRN, Other, | | | | | | | Starting [facility] 07/21/18 at 1224, For | | | | | | | 1 dose, Nuclear Medicine | | | | | | + +--------+ + +------+------+ +---+---+ | | | +---+---+ documented in this encounter"
--- OUTSIDE RECORDS SUMMARY | ~2019-11-01 | XMS | Encounter Summary ---
Demographics + + + | Address | [address] | | | [place] [address] | + + + | Home Phone [...] Team Providers + +------+ + | Care Marketer Name | Role | Phone | + +------+ + PCP | Unavailable | + +------+ + Encounter Details +--------+ + + + + | Date | Type | Department | Care Team | Description | +--------+ + + + + | 06/25/ | [facility] | [facility] | Daljit Singletary, | | | 2008 | Encounter | MED CTR XRAY [address] | [address] [place] | | | | | [place] | [place], | | | | | [place] [address] | [place] [address] | | | | | [phone] | [phone] | | | | | | | [...] | | | | | | [place], | | | | | | [place] [address] | | | | | | [phone] | | | | | | | | +--------+ + + + + | 11/20/ | Implant | Cardiology | Daljit Singletary, | Remote Device | | 2019 | Monitor | | MD [address] | Interrogation | | | | | [place], | (Primary Dx); | | | | | [place] [address] | Presence of | | | | | [phone] | permanent cardiac | | | | [...]
--- OUTSIDE RECORDS SUMMARY | ~2019-11-01 | XMS | Encounter Summary ---
Demographics + + + | Address | [address] | | | [place] [address] | + + + | Home Phone [...] Team Providers + +------+ + | Care Supervising Film Or Videotape Editor Name | Role | Phone | [...] | CARDIOLOGY [address] | [address] | reprogramming/check | | | | [place], | [place], | DO NOT DELETE | | | | [place] [address] | [place] [address] | (Primary Dx); | | | | [phone] | [phone] | Sinoatrial node | | | | | | dysfunction ([facility]) | | | | | | with [...] W | | | | | | [place], | | | | | | [place] [address] | | | | | | [phone] | | | | | | | | +--------+ + + + + | 11/20/ | Implant | Cardiology | Daljit Singletary, | Remote Device | | 2018 | Monitor | | MD [address] [place] | Interrogation | | | | | [place], | (Primary Dx); | | | | | [place] [address] | Presence of | | | | | [phone] | permanent cardiac | | | | [...] 1960: | | AGE: 56 y.o.Pac[facility] Evaluation ReportAupl[facility] cent[facility] 2015Reason for evaluation: | | routineIndication for [...]
--- OUTSIDE RECORDS SUMMARY | ~2019-11-01 | XMS | Encounter Summary ---
Demographics + + + | Address | [address] | | | [place] [address] | + + + | Home Phone [...] Team Providers + +------+ + | Care Finisher Fine Diamond Dies Name | Role | Phone | + +------+ + PCP | Unavailable | + +------+ + Encounter Details +--------+ + + + + | Date | Type | Department | Care Team | Description | +--------+ + + + + | 02/21/ | [facility] | [facility] | Cristy Braun | | | 2008 | Encounter | MED CTR EMERGENCY | Ronald Adrian MD [address] | | | | | [place] [address] | [facility] | | | | | [place] | [place] [address] | | | | | [address] | [phone] | | | | | [phone] | | | +--------+ + + + [...] | | | | | | [place] [address] | | | | | | [phone] | | | | | | | | +--------+ + + + + | 11/20/ | Implant | Cardiology | Daljit Singletary, | Remote Device | | 2018 | Monitor | | MD [address] | Interrogation | | | | | [place], | (Primary Dx); | | | | | [place] [address] | Presence of | | | | | [phone] | permanent cardiac | | | | [...]
--- OUTSIDE RECORDS SUMMARY | ~2019-11-01 | XMS | Encounter Summary ---
Demographics + + + | Address | [address] | | | [place] [address] | + + + | Home Phone [...] Providers + +------+ + | Care Wildlife Ecology Professor Name | Role | Phone | + +------+ + | Kirk French MD | PCP | | + +------+ + Encounter Details +--------+ + + + + | Date | Type | Department | Care Team | Description | +--------+ + + + + | 07/05/ | Hospital | [facility] | Conversion | Acute neck pain | | 2017 | Encounter | [facility] XRAY | Transaction, | | | | | [address] | Provider Unknown | | | | | [address] [place], [place] | [phone] | | | | | [address] | | | | | | [phone] | Apolonia Ruano | | | | | | MD Shelly [address] | | | | | | [place] | | | | | | [place], [place] | | | | | | [address] | | | | | | [phone] | | +--------+ + + + + [...] + + + +---------+ + + | [place]-3 Fatty | CAPS, one capsule by | [...] | | | | | | [place] [address] | | | | | | [phone] | | | | | | | | +--------+ + + + + | 11/20/ | Implant | Cardiology | Daljit Singletary, | Remote Device | | 2019 | Monitor | | MD [address] [facility] [place], [place] | Interrogation | | | | | [place], | (Primary Dx); | | | | | [place] [address] | Presence of | | | | | [phone] | permanent cardiac | | | | [...] | + + + | PINA GAY XR CERVICAL SPINE LIMITED 2-3 VIEW 07/05/2017 4:30 PM | | | HISTORY: 57 years. Male. Acute neck pain. TECHNIQUE: XR | | | CERVICAL SPINE LIMITED 2-3 VIEW. 3 view(s) obtained. | | | COMPARISON: CT dated 12/23/2014 | | + + + + -----+ | Procedure Note | + -----+ | Kevin, Rad Conversion - 07/06/2019 12:12 AM PDT PINA GAYXR [...]
--- OUTSIDE RECORDS SUMMARY | ~2019-11-01 | XMS | Encounter Summary ---
Demographics + + + | Address | [address] | | | [place] [address] | + + + | Home Phone [...] Team Providers + +------+ + | Care Pilot Captain Name | Role | Phone | [...] | +--------+ + + + + | 08/14/ | Tele[facility] | [facility] | Michael Amanda, | Appointment | | 2012 | | [facility] [address] | DO [address] | | | | | [facility] | [place] | | | | | [place], [place] | [address] | | | | | [address] | | | | | | [phone] | | | +--------+ + + + [...] W | | | | | | [place], | | | | | | [place] [address] | | | | | | [phone] | | | | | | | | +--------+ + + + + | 11/20/ | Implant | Cardiology | Daljit Singletary, | Remote Device | | 2018 | Monitor | | [address] [facility] | Interrogation | | | | | [place], | (Primary Dx); | | | | | [place] [address] | Presence of | | | | | [phone] | permanent cardiac | | | | [...]
--- OUTSIDE RECORDS SUMMARY | ~2019-11-01 | XMS | Encounter Summary ---
Demographics + + + | Address | [address] | | | [place] [address] | + + + | Home Phone [...] Providers + +------+ + | Care Water Analyst Name | Role | Phone | [...] + + | 09/01/ | [facility] | [facility] | Silvia, | Ascending thoracic | | 2015 | Visit | CARDIOLOGY [address] | [address] [place] [address] | aortic aneurysm | | | | [place], | [place], | ([facility]) (Primary Dx); | | | | [place] [address] | [place] [address] | Coronary artery | | | | [phone] | [phone] | disease involving | | | | | | quartz valley coronary | | | | | | artery of [place] | | | | | | heart [...] of non-critical coronary artery d isease involving [place] coronary artery of [place] heart without angina pectoris, essential h ypertension, [...] episode of chest pain while nelly ng [facility], so he took some sublingual nitroglycerin and [...] Preventative health care Coronary artery disease involving [place] coronary artery of [place] heart without angina pectoris Cannabis abuse, daily [...] by mouth every evening 90 tablet 3 [facility] Natural Products (OSTEO BI-FLEX/5-LOXIN ADVANCED PO) Take [...] 3rd dose, call 911 100 tablet 3 [place]-3 Fatty Acids (SALMON OIL-1000 PO) CAPS, one capsule by mouth daily twice daily ONE TOUCH DELICA LANCETS [facility] Check glucose as needed for hypoglycemia 100 [...] RESULTS reviewed during visit today primarily from [facility]: LIPID Lab Results Component Value [...] PLTEX 129* 05/12/2016 I reviewed records from [facility] for office visit on 06/2016 [facility] ch is summarized in the HPI. 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 On physical examination there are no signs of fluid overload. The plan will be to lose weight, modify portion control, start exercising, limit sodium in take and we will start losartan 25 mg once a day with a close monitoring of blood pressure. 2. Non-critical Coronary artery disease involving quartz [place] coronary artery of [place] [facility] angina pectoris: A. Normal exercise sestamibi [...] ventricular arrhythmia performed by Dr. Gambino at [facility] on 01/30/2013. Patient had spontaneous PVCs [...] to go back in 3 days to [place] for an attempt of ablation under general [...] this chart may have been created with [employer] voice recognition software. Occasi onal wrong-word or [...] [place], | | | | | | [place] [address] | | | | | | [phone] | | | | | | | | +--------+ + + + + | 11/20/ | Implant | Cardiology | Daljit Singletary, | Remote Device | | 2019 | Monitor | | MD [address] [place] | Interrogation | | | | | [place], | (Primary Dx); | | | | | [place] [address] | Presence of | | | | | [phone] | permanent cardiac | | | | [...] + + | Coronary artery disease involving quartz valley coronary artery of quartz valley heart without | | angina pectoris | + + | Essential hypertension with goal blood pressure less than 130/80 | + + | Hyperlipidemia, mixed Mixed hyperlipidemia | + + documented in this encounter
--- OUTSIDE RECORDS SUMMARY | ~2019-11-01 | XMS | Encounter Summary ---
Demographics + + + | Address | [address] | | | [place] [address] | + + + | Home Phone [...] Team Providers + +------+ + | Care Elementary Art Teacher Name | Role | Phone | + +------+ + | Kirk French MD | PCP | | + +------+ + Reason for Visit + + + | Reason | Comments | + + + | Medication Orders | Medication | + + + Encounter Details +--------+ + + + + | Date | Type | Department | Care Team | Description | +--------+ + + + + | 04/07/ | Telephone | [facility] | Matthew Uriarte | Medication Orders | | 2019 | | [address] | MD Tawanna [address] | (Medication ) | | | | [place], [place] | [place], [place] | | | | | [address] | [address] | | | | | [phone] | | | +--------+ + + + [...] | | | | | | [place] [address] | | | | | | [phone] | | | | | | | | +--------+ + + + + | 11/20/ | Implant | Cardiology | Daljit Singletary, | Remote Device | | 2018 | Monitor | | MD [address] | Interrogation | | | | | [place], | (Primary Dx); | | | | | [place] [address] | Presence of | | | | | [phone] | permanent cardiac | | | | [...]
--- OUTSIDE RECORDS SUMMARY | ~2019-11-01 | XMS | Clinical Summary ---
Demographics + + + | Address | [address] | | | [place] [address] | + + + | Home Phone [...] Providers + +------+ + | Care Clinical Trainer Name | Role | Phone | [...] | | + + + +---------+------+------+-------+ | [place]-3 Fatty | CAPS, one capsule by | [...] glucose as | 100 | 3 | /2 | | Activ | | LANCETS | [...] every 8 hours as | | | 20 | | e | | disintegrating | needed for Nausea. | | | 19 | | | | tablet | | | | | | | + + + +---------+------+------+-------+ | Glucose Blood | Test up to 1 times a | | 0 | 03/0 | | Activ | | (BLOOD GLUCOSE TEST | day as needed ( One | | | 08/11 | | e | | STRIPS) STRP | touch ) | | | 18 | | | + + + +---------+------+------+-------+ | HYDROmorphone | Take 1 tablet by | | 0 | 07/1 | | Activ | | (DILAUDID) 4 MG | mouth every 4 hours. | | | /20 | | e | | tablet | | | | 19 | | | + + + +---------+------+------+-------+ | atorvaSTATin | Take 1 tablet by | 30 | 5 | 05/22 | | Activ | | (LIPITOR) 40 mg | mouth nightly. | tablet | | 05/11 | | e | | tabletIndications: | | | | 19 | | | | Coronary artery | | | | | | | | disease involving | | | | | | | | marshall coronary | | | | | | | | artery of marshall | | | | | | | | heart without angina | | | | | | | | pectoris, | | | | | | | | Hyperlipidemia, | | | | | | | | mixed | | | | | | | + + + +---------+------+------+-------+ | metoprolol | Take 1.5 tablets by | 45 | 5 | 05/22 | | Activ | | succinate | mouth Daily. | tablet | | 05/11 | | e | | (TOPROL-XL) 100 [...] e | + + + +---------+------+------+-------+ | nitroglycerin [...] | | + + + +---------+------+------+-------+ | hyoscyamine | PLACE 1 TABLET UNDER [...] | | + + + +---------+------+------+-------+ | hyoscyamine | Place 1 tablet under | 60 | 1 | 09/0 | 12/0 | Disco | | (LEVSIN) 0.125 mg SL | the tongue every 4 | tablet | | 08/11 | 04/10 | ntinu | | tablet | hours as needed for | | | 19 | 19 | ed | | | Cramping, Diarrhea | | | | | (Reor | | | or GI Spasms. | | | | | good) | + + + +---------+------+------+-------+ Active Problems + + + | Problem | Noted Date | + + + | Chronic narcotic use | 09/26/2019 | + + + | Left ureteral [...] + | Overview: Lower back injury (From [facility]) 1980 1984 | + + + + [...] + + | Coronary artery disease involving marshall coronary artery of | 12/21/2013 | | marshall heart without angina pectoris | | + [...] is 64%, by Daljit Singletary | | .Echocardiogram 06/16/16, shows normal [...] attenuation cannot | | completely be ruled out.[facility] 12/25/13, shows non critical coronary | | [...] | | CT Angiogram chest w/constrast 05/26/14 [facility] | + + + + + | [...] ventricular arrhythmia performed by Dr. Gambino at [facility] on 01/30/2013. Patient had spontaneous [...] back in 3 days to | | [place] for an attempt of ablation under general [...] IMPLANTED GENERATOR | | Medtronic DDD ADDR01 [id number] 06/14/09 RV LEAD Medtronic Active | | Bipolar CapSureFix 4076 [id number] 06/14/09 A LEAD Medtronic | | Active Bipolar CapSurFix 4076 [id number] 06/14/09 | + + + +---+ | [...] | Heart Cath, 02/29/2012, LVEF is 65%, [facility] | | Nuclear Medicine Myocardial Gated Stress Test, 05/25/2009, EF 53 | | % during rest and 52% during stress. [facility], | | [place]Persantine Sestamibi Stress Test, 06/14/2008, LVEF is | | 60%, [facility] 12/25/13, shows noncritical | | coronary artery [...] Plan: Nonobstructive CAD noted | | on [facility] from 2013, no EKG changes, and negative [...] + + + + | 10/26/ | Refill | Gastroenterology | Kirk French | Medication Refill | | 2018 | | | MD Brea | | +--------+ + + + + | 10/24/ | Refill | Gastroenterology | Emmanuel Daniel MD | Medication Refill | | 2018 | | | | | +--------+ + + + + | 10/04/ | Telephone | Gastroenterology | Emmanuel Daniel MD | Other (Triage) | | 2018 | | | | | +--------+ + + + + | 09/26/ | Office | Family Medicine | Kirk French | Weight loss (Primary | | 2018 | Visit | | MD Brea | Dx); Bipolar | | | | | | affective disorder, | | | | | | remission status | | | | | | unspecified (HCC); | | | | | | Mixed anxiety | | | | | | depressive disorder; | | | | | | Smoker; Low back | | | | | | pain, unspecified | | | | | | back pain | | | | | | laterality, | | | | | | unspecified | | | | | | chronicity, | | | | | | unspecified whether | | | | | | sciatica present; | | | | | | Irritable bowel | | | | | | syndrome, | | | | | | unspecified type; | | | | | | Chronic pain | | | | | | syndrome; PUD | +--------+ + + + + | 09/04/ | Telephone | Gastroenterology | Emmanuel Daniel MD | Other | | 2018 | | | | | +--------+ + + + + | 08/31/ | Refill | Family Medicine | Kirk French | Medication Refill | | 2018 | | | MD Brea | | +--------+ + + + + | 08/30/ | Refill | Family Medicine | Kirk French | Medication Refill | | 2018 | | | MD [...] + + | Mother | | | [place] | | | | (Age | | [...] + + + | Blood Pressure | 116/82 | 09/26/2019 11:28 AM | | | | | PST | | + + + + + | Pulse | 70 | 09/26/2019 11:28 AM | | | | | PST | | + + + + + | Temperature | 37.4 C (99.3 F) | 06/02/2019 6:40 PM | | | | | PDT | | + + + + + | Respiratory Rate | 18 | 09/26/2019 11:28 AM | | | | | PST [...] Weight | 98.9 kg (218 lb) | 09/26/2019 11:28 AM | | | | | PST | | + + + + + | Height | 193 cm (6' 4") | 09/26/2019 11:28 AM | | | | | PST | | + + + + + | Body Mass Index | 26.54 | 09/26/2019 11:28 AM | | | | | PST | | + + + + + Plan of Treatment +--------+ + + + + | Date | Type | Specialty | Care Team | Description | +--------+ + + + + | 11/09/ | Office | Cardiology | Silvia, | | | 2019 | Visit | | PARISA [address] | | | | | | [place], | | | | | | [place] [address] | | | | | | [phone] | | | | | | | | +--------+ + + + + | 11/20/ | Implant | Cardiology | Daljit Singletary, | Remote Device | | 2019 | Monitor | | [address] [facility] | Interrogation | | | | | [place], | (Primary Dx); | | | | | [place] [address] | Presence of | | | | | [phone] | permanent cardiac | | | | [...] Left: | COOK | | 09/27/ | [id number] | | 22-32 - [id number]: | | Ureter | [employer] | | 2020 | / | | Qty: 1 on 04/13/2019 by | | | - [place] | | | /[id number] | | Matthew Uriarte MD at | | | | | | 57 | | [facility] | | | | | | | [facility] | | | | | | | + +-------+--------+ +--------+--------+--------+ Results Not on filefrom Last 3 Months [...] +--------+ +---------+--------+ | MEDICARE | MEDICA | [id number] | 01/21/20 | [phone] | | Medica | | | RE | | 01-Pre | 5 | | re | | | PART A | | sent | | | | | | AND B | | | | | | + +--------+ +--------+ +---------+--------+ | MEDICARE | MEDICA | [id number] | 01/21/20 | [phone] | | Medica | | | RE | | 01-Pre | 5 | | re | | | PART A | | sent | | | | | | AND B | | | | | | + +--------+ +--------+ +---------+--------+ | AARP | AARP | [id number] | | [phone] | | Indemn | | | MDCR | | 016-Pr | 0 | | ity | | | SUPPL | | esent | | | | + +--------+ +--------+ +---------+--------+ | AARP | AARP | [id number] | 11/22/19 | [phone] | | Indemn [...] Person | Self | [birth year] | [address] | | Kirk | cristo/Per | | 1960 | [phone] | [place], [place] | | | [place] | | | 8 (Home) | [address] | + +--------+ +--------+ + + | Moe Sanchez | Person | Self | [birth year] | | [address] | | Kirk | al/Fam | | 1960 | [phone] | [address] [place] | | | [place] | | | 8 (Home) | [address] | + +--------+ +--------+ + + | Moe Sanchez | Dave | Self | [birth year] | | [address] | | Kirk | Green Party | | 1960 | [phone] | [address] [place] | | | [place] | | | [address] ([place]) | [address] | | | danyely | | | | | + +--------+ +--------+ + + Advance Directives + + + + + | Type | Date Recorded | Patient | Explanation | | | | Gear Design Engineer | | + + + + + | Power of | | | | | Frozen Yogurt Maker | | | | + + + [...]
--- OUTSIDE RECORDS SUMMARY | ~2019-11-01 | XMS | Encounter Summary ---
Demographics + + + | Address | [address] | | | [place] [address] | + + + | Home Phone [...] Providers + +------+ + | Care Sales Communications Manager Name | Role | Phone | + +------+ + | Kirk French MD | PCP | | + +------+ + Encounter Details +--------+---------+ + + + | Date | Type | Department | Care Team | Description | +--------+---------+ + + + | 01/25/ | Surgery | [facility] | Daljit Singletary, | CV LHC | | 2019 | | MED CTR CV INTRA OP | MD [address] | | | | | [address] | [address] [place], | | | | | [place] | [place] [address] | | | | | [address] | [phone] | | | | | [phone] | | | +--------+---------+ + + + [...] as a collagen plugis used on the art triny site to close the site, you [...] by your healthcare provider Date Last Reviewed: 09/22/201619999194-4305 [employer]. [address] [place] [address]. All righ ts reserved. This information is [...] + + + +---------+ + + | [place]-3 Fatty | CAPS, one capsule by | [...] W | | | | | | [place], | | | | | | [place] [address] | | | | | | [phone] | | | | | | | | +--------+ + + + + | 11/20/ | Implant | Cardiology | Daljit Singletary, | Remote Device | | 2018 | Monitor | | [address] [facility] | Interrogation | | | | | [place], | (Primary Dx); | | | | | [place] [address] | Presence of | | | | | [phone] | permanent cardiac | | | | | | pacemaker; | | | | | | Sinoatrial node | | | | | | dysfunction ([facility]) | | | | | | [...] (1960) MEDICAL RECORD NUMBER: | | | [id number] OF PROCEDURE: 01/25/2019 MAINTENANCE SERVICE SUPERVISOR: Daljit | | | MD Gemini PROCEDURES [...] Sanchez, (1960) | | OF PROCEDURE: 01/25/2019PRIMARY ROUNDHOUSE SUPERVISOR: Daljit Singletary MD PROCEDURES | | PERFORMED:Coronary [...] | Aggressive medical management. | | at 9:33[facility] C[facility] PROVIDER:Kirk French MDFor additional detail as [...] or lesion | | type, unspecified whether siletz tribe or transplanted heart | + + documented [...]
--- OUTSIDE RECORDS SUMMARY | ~2019-11-01 | XMS | Encounter Summary ---
Demographics + + + | Address | [address] | | | [place] [address] | + + + | Home Phone [...] Team Providers + +------+ + | Care Department Store Manager Name | Role | Phone | + +------+ + | Kirk French MD | PCP | | + +------+ + Encounter Details +--------+ + + + + | Date | Type | Department | Care Team | Description | +--------+ + + + + | 06/13/ | Abstract | [facility] | [place], | | | 2018 | | CARDIOLOGY [address] | [place] [address] | | | | | [place], | [place], | | | | | [place] [address] | [place] [address] | | | | | [phone] | [phone] | | | | | | | [...] W | | | | | | [place], | | | | | | [place] [address] | | | | | | [phone] | | | | | | | | +--------+ + + + + | 11/20/ | Implant | Cardiology | Daljit Singletary, | Remote Device | | 2018 | Monitor | | [address] [facility] | Interrogation | | | | | [place], | (Primary Dx); | | | | | [place] [address] | Presence of | | | | | [phone] | permanent cardiac | | | | [...] | EXTERNAL LAB: BUN | Routin | 04/11/2018 | | Results for this | | | e | | | procedure are in the | | | | | | results section. | + +--------+ + + + | EXTERNAL LAB: | Routin | 04/11/2018 | | Results for this | | GLUCOSE | e | | | procedure are in the | | | | | | results section. | + +--------+ + + + | EXTERNAL LAB: AST | Routin | 04/11/2018 | | Results for this | | | e | | | procedure are in the | | | | | | results section. | + +--------+ + + + | EXTERNAL LAB: | Routin | 04/11/2018 | | Results for this | | ALKALINE PHOSPHATASE | e | | | procedure are in the | | | | | | results section. | + +--------+ + + + | EXTERNAL LAB: | Routin | 04/11/2018 | | Results for this | | BILIRUBIN, TOTAL | e | | | procedure are in the | | | | | | results section. | + +--------+ + + + | EXTERNAL LAB: | Routin | 04/11/2018 | | Results for this | | ALBUMIN | e | | | procedure are in the | | | | | | results section. | + +--------+ + + + | EXTERNAL LAB: | Routin | 04/11/2018 | | Results for this | | PROTEIN, TOTAL | e | | | procedure are in the | | | | | | results section. | + +--------+ + + + | EXTERNAL LAB: | Routin | 04/11/2018 | | Results for this | | CALCIUM | e | | | procedure are in the | | | | | | results section. | + +--------+ + + + | EXTERNAL LAB: CARBON | Routin | 04/11/2018 | | Results for this | | DIOXIDE | e | | | procedure are in the | | | | | | results section. | + +--------+ + + + | EXTERNAL LAB: | Routin | 04/11/2018 | | Results for this | | CHLORIDE | e | | | procedure are in the | | | | | | results section. | + +--------+ + + + | EXTERNAL LAB: | Routin | 04/11/2018 | | Results for this | | POTASSIUM | e | | | procedure are in the | | | | | | results section. | + +--------+ + + + | EXTERNAL LAB: SODIUM | Routin | 04/11/2018 | | Results for this | | | e | | | procedure are in the | | | | | | results section. | + +--------+ + + + | EXTERNAL LAB: CBC | Routin | 04/11/2018 | | Results for this | | | e | | | procedure are in the | | | | | | results section. | + +--------+ + + + | EXTERNAL LAB: EGFR | Routin | 04/11/2018 | | Results for this | | | e | | | procedure are in the | | | | | | results section. | + +--------+ + + + | EXTERNAL LAB: | Routin | 04/11/2018 | | Results for this | | CREATININE | e | | | procedure are in the | | | | | | results section. | + +--------+ + + + | CBC WITH | Routin | 04/11/2018 | | Results for this | | DIFFERENTIAL | e | | | procedure are in the | | | | | | results section. | + +--------+ + + + | COMPREHENSIVE | Routin | 04/11/2018 | | Results for this | | METABOLIC PANEL | e | | | procedure are in the | | | | | | results section. | + +--------+ + + + documented in this encounter Results CBC with Differential (04/11/2018) + + + + + + | Component | Value | Ref Range | Performed | Pathologist | | | | | At | Signature | + + + + + + | MCH | 34.4 (A) | 27.0 - 34.0 pg | | | + + + + + + | MCHC | 34.4 | 32.0 - 35.5 % | | | + + + + + + | MPV | 9.9 | fL | | | + + + + + + | % Basophils | 0.8 | % | | | + + + + + + + + | Specimen | + + | Blood | + + Comprehensive Metabolic Panel (04/11/2018) + +-------+ + + + | Component | Value | Ref Range | Performed | Pathologist | | | | | At | Signature | + +-------+ + + + | Anion Gap | 10 | 5 - 20 mmol/L | | | + +-------+ + + + | Bun/Creatin | 27 | | | | | ine | | | | | + +-------+ + + + | Globulin | 3.4 | 1.3 - 4.9 | | | + +-------+ + + + | Albumin/Sandee | 1.1 | 1.0 - 2.4 | | | | bulin Ratio | | | | | + +-------+ + + + + + | Specimen | + + | Blood | + + External Lab: BUN (04/11/2018) + +--------+ + + + | Component | Value | Ref Range | Performed | Pathologist | | | | | At | Signature | + +--------+ + + + | BUN, | 30 (A) | 8 - 25 | EXTERNAL | | | External | | | LAB | | + +--------+ + + + + +---------+ + + | Performing | Address | City/State/Zipcode | Phone Number | | Organization | | | | + +---------+ + + | EXTERNAL LAB | | | | + +---------+ + + External Lab: Glucose (04/11/2018) + +-------+ + + + | Component | Value | Ref Range | Performed | Pathologist | | | | | At | Signature | + +-------+ + + + | Glucose, | 85 | 65 - 99 | EXTERNAL | | | External | | | LAB | | + +-------+ + + + + +---------+ + + | Performing | Address | City/State/Zipcode | Phone Number | | Organization | | | | + +---------+ + + | EXTERNAL LAB | | | | + +---------+ + + External Lab: AST (04/11/2018) + +-------+ + + + | Component | Value | Ref Range | Performed | Pathologist | | | | | At | Signature | + +-------+ + + + | AST, | 30 | 10 - 45 | EXTERNAL | | | External | | | LAB | | + +-------+ + + + + +---------+ + + | Performing | Address | City/State/Zipcode | Phone Number | | Organization | | | | + +---------+ + + | EXTERNAL LAB | | | | + +---------+ + + External Lab: Alkaline Phosphatase (04/11/2018) + +-------+ + + + | Component | Value | Ref Range | Performed | Pathologist | | | | | At | Signature | + +-------+ + + + | ALP, | 72 | 35 - 115 | EXTERNAL | | | External | | | LAB | | + +-------+ + + + + +---------+ + + | Performing | Address | City/State/Zipcode | Phone Number | | Organization | | | | + +---------+ + + | EXTERNAL LAB | | | | + +---------+ + + External Lab: Bilirubin, Total (04/11/2018) + +-------+ + + + | Component | Value | Ref Range | Performed | Pathologist | | | | | At | Signature | + +-------+ + + + | Bilirubin, | 0.5 | 0.1 - 1.5 | EXTERNAL | [...] + +---------+ + + External Lab: Albumin (04/11/2018) + +-------+ + + + | Component | Value | Ref Range | Performed | Pathologist | | | | | At | Signature | + +-------+ + + + | Albumin, | 3.7 | 3.6 - 5 | EXTERNAL | | | External | | | LAB | | + +-------+ + + + + +---------+ + + | Performing | Address | City/State/Zipcode | Phone Number | | Organization | | | | + +---------+ + + | EXTERNAL LAB | | | | + +---------+ + + External Lab: Protein, Total (04/11/2018) + +-------+ + + + | Component | Value | Ref Range | Performed | Pathologist | | | | | At | Signature | + +-------+ + + + | Protein, | 7.1 | 6.3 - 8.2 | EXTERNAL | [...] + +---------+ + + External Lab: Calcium (04/11/2018) + +-------+ + + + | Component | Value | Ref Range | Performed | Pathologist | | | | | At | Signature | + +-------+ + + + | Calcium, | 9.0 | 8.5 - 10.5 | EXTERNAL | | | External | | | LAB | | + +-------+ + + + + +---------+ + + | Performing | Address | City/State/Zipcode | Phone Number | | Organization | | | | + +---------+ + + | EXTERNAL LAB | | | | + +---------+ + + External Lab: Carbon Dioxide (04/11/2018) + +-------+ + + + | Component | Value | Ref Range | Performed | Pathologist | | | | | At | Signature | + +-------+ + + + | Carbon | 27 | 23 - 32 | EXTERNAL | [...] + +---------+ + + External Lab: Chloride (04/11/2018) + +---------+ + + + | Component | Value | Ref Range | Performed | Pathologist | | | | | At | Signature | + +---------+ + + + | Chloride, | 111 (A) | 99 - 109 | EXTERNAL | | | External | | | LAB | | + +---------+ + + + + +---------+ + + | Performing | Address | City/State/Zipcode | Phone Number | | Organization | | | | + +---------+ + + | EXTERNAL LAB | | | | + +---------+ + + External Lab: Potassium (04/11/2018) + +-------+ + + + | Component [...] + +---------+ + + External Lab: Sodium (04/11/2018) + +-------+ + + + | Component | Value | Ref Range | Performed | Pathologist | | | | | At | Signature | + +-------+ + + + | Sodium, | 144 | 135 - 145 | EXTERNAL | | | External | | | LAB | | + +-------+ + + + + +---------+ + + | Performing | Address | City/State/Zipcode | Phone Number | | Organization | | | | + +---------+ + + | EXTERNAL LAB | | | | + +---------+ + + External Lab: CBC (04/11/2018) + + + + + + | Component | Value | Ref Range | Performed | Pathologist | | | | | At | Signature | + + + + + + | WBC, | 8.44 | 3.8 - 11 | EXTERNAL | | | External | | | LAB | | + + + + + + | HGB, | 15.6 | 13.2 - 17 | EXTERNAL | | | External | | | LAB | | + + + + + + | HCT, | 45.5 | 39 - 50 | EXTERNAL | | | External | | | LAB | | + + + + + + | PLT, | 157 | 150 - 400 | EXTERNAL | | | External | | | LAB | | + + + + + + | Neutrophils | 64.46 | | EXTERNAL | | | %, | | | LAB | | | External | | | | | + + + + + + | Lymphocytes | 20.66 | | EXTERNAL | | | %, | | | LAB | | | External | | | | | + + + + + + | Monocytes | 10.97 | | EXTERNAL | | | %, External | | | LAB | | + + + + + + | Eosinophils | 3.08 | | EXTERNAL | | | %, | | | LAB | | | External | | | | | + + + + + + | Neutrophils | 5.44 | 1.9 - 7.4 | EXTERNAL | | | , Absolute, | | | LAB | | | External | | | | | + + + + + + | Lymphocytes | 1.74 | 1 - 3.9 | EXTERNAL | | | , Absolute, | | | LAB | | | External | | | | | + + + + + + | Monocytes, | 0.93 (A) | 0 - 0.8 | EXTERNAL | | | Absolute, | | | LAB | | | External | | | | | + + + + + + | Eosinophils | 0.26 | 0 - 0.5 | EXTERNAL | | | , Absolute | | | LAB | | + + + + + + | Basophils, | 0.07 | 0 - 0.1 | EXTERNAL | | | Absolute | | | LAB | | + + + + + + | RBC, | 4.54 | 4.2 - 5.7 | EXTERNAL | | | External | | | LAB | | + + + + + + | MCV, | 100 | 80 - 100 | EXTERNAL | | | External | | | LAB | | + + + + + + | RDW, | 47.3 | 37 - 53 | EXTERNAL | | | External | | | LAB | | + + + + + + + +---------+ + + | Performing | Address | City/State/Zipcode | Phone Number | | Organization | | | | + +---------+ + + | EXTERNAL LAB | | | | + +---------+ + + External Lab: eGFR (04/11/2018) + +-------+ + + + | Component | Value | Ref Range | Performed | Pathologist | | | | | At | Signature | + +-------+ + + + | eGFR, | >60 | | EXTERNAL | | | External [...] + +---------+ + + External Lab: Creatinine (04/11/2018) + +-------+ + + + | Component | Value | Ref Range | Performed | Pathologist | | | | | At | Signature | + +-------+ + + + | Creatinine, | 1.1 | 0.7 - 1.3 | EXTERNAL | [...]
--- OUTSIDE RECORDS SUMMARY | ~2019-11-01 | XMS | Encounter Summary ---
Demographics + + + | Address | [address] | | | [place] [address] | + + + | Home Phone [...] Team Providers + +------+ + | Care Rock Worker Name | Role | Phone | [...] [address] | | | | | [place], | [place], | | | | | [place] [address] | [place] [address] | | | | | [phone] | [phone] | | | | | | | [...] W | | | | | | [place], | | | | | | [place] [address] | | | | | | [phone] | | | | | | | | +--------+ + + + + | 11/20/ | Implant | Cardiology | Daljit Singletary, | Remote Device | | 2018 | Monitor | | [address] [facility] | Interrogation | | | | | [place], | (Primary Dx); | | | | | [place] [address] | Presence of | | | | | [phone] | permanent cardiac | | | | [...]
--- OUTSIDE RECORDS SUMMARY | ~2019-11-01 | XMS | Encounter Summary ---
Demographics + + + | Address | [address] | | | [place] [address] | + + + | Home Phone [...] Team Providers + +------+ + | Care Lacquer Mixer Name | Role | Phone | + +------+ + PCP | Unavailable | + +------+ + Encounter Details +--------+ + + + + | Date | Type | Department | Care Team | Description | +--------+ + + + + | 08/17/ | [facility] | [facility] | Evan Gandara MD | | | 2005 | Encounter | MED CTR LABORATORY | [address] [facility] | | | | | [address] | [place] | | | | | [place] | [address] | | | | | [address] | | | | | | [phone] | | | +--------+ + + + [...] [place], | | | | | | [place] [address] | | | | | | [phone] | | | | | | | | +--------+ + + + + | 11/20/ | Implant | Cardiology | Daljit Singletary, | Remote Device | | 2019 | Monitor | | MD [address] | Interrogation | | | | | [place], | (Primary Dx); | | | | | [place] [address] | Presence of | | | | | [phone] | permanent cardiac | | | | [...]
--- OUTSIDE RECORDS SUMMARY | ~2019-11-01 | XMS | Encounter Summary ---
Demographics + + + | Address | [address] | | | [place] [address] | + + + | Home Phone [...] Providers + +------+ + | Care Improvement Engineer Name | Role | Phone | + +------+ + PCP | Unavailable | + +------+ + Encounter Details +--------+ + + + + | Date | Type | Department | Care Team | Description | +--------+ + + + + | 09/13/ | [facility] | [facility] | Jonathan, | | | 2009 | Encounter | MED CTR EMERGENCY | Martell Cr MD [address] | | | | | CENTER [address] | [place] | | | | | [place] | [place] [address] | | | | | [address] | [phone] | | | | | [phone] | | | +--------+ + + + [...] W | | | | | | [place], | | | | | | [place] [address] | | | | | | [phone] | | | | | | | | +--------+ + + + + | 11/20/ | Implant | Cardiology | Daljit Singletary, | Remote Device | | 2019 | Monitor | | MD [place] | Interrogation | | | | | [place], | (Primary Dx); | | | | | [place] [address] | Presence of | | | | | [phone] | permanent cardiac | | | | [...]
--- OUTSIDE RECORDS SUMMARY | ~2019-11-01 | XMS | Encounter Summary ---
Demographics + + + | Address | [address] | | | [place] [address] | + + + | Home Phone [...] Team Providers + +------+ + | Care Bulk System Operator Name | Role | Phone | [...] + | 06/27/ | Telephone | [facility] | Michael Amanda, | ED Follow-up (s/p | | 2014 | | MEDICINE [place] | DO [address] | [facility]) | | | | [address] | [place] | | | | | [place] | [address] | | | | | [address] | | | | | | [phone] | | | +--------+ + + + [...] W | | | | | | [place], | | | | | | [place] [address] | | | | | | [phone] | | | | | | | | +--------+ + + + + | 11/20/ | Implant | Cardiology | Daljit Singletary, | Remote Device | | 2018 | Monitor | | MD [address] | Interrogation | | | | | [place], | (Primary Dx); | | | | | [place] [address] | Presence of | | | | | [phone] | permanent cardiac | | | | [...]
--- OUTSIDE RECORDS SUMMARY | ~2019-11-01 | XMS | Encounter Summary ---
Demographics + + + | Address | [address] | | | [place] [address] | + + + | Home Phone [...] Team Providers + +------+ + | Care Analog Ic Design Architect Name | Role | Phone | + +------+ + | Kirk French MD | PCP | | + +------+ + Encounter Details +--------+ + + + + | Date | Type | Department | Care Team | Description | +--------+ + + + + | 04/05/ | Imaging | [facility] | Provider, | | | 2019 | Exam | MED CTR EXTERNAL | MD [address] | | | | | IMAGING | Jay [place] | | | | | [phone] | [place] [address] | | +--------+ + + + + [...] W | | | | | | [place], | | | | | | [place] [address] | | | | | | [phone] | | | | | | | | +--------+ + + + + | 11/20/ | Implant | Cardiology | Daljit Singletary, | Remote Device | | 2018 | Monitor | | [facility] | Interrogation | | | | | [place], | (Primary Dx); | | | | | [place] [address] | Presence of | | | | | [phone] | permanent cardiac | | | | [...] + + + | CT ABDOMEN PELVIS WO | Routin | 04/01/2019 | | Results for this | | CONTRAST | e | 12:40 PM | | procedure are in the | | | | PDT | | results section. | + +--------+ + + + documented in this encounter Results CT Abdomen Pelvis wo Contrast (04/01/2019 12:40 PM PDT) + + | Specimen | + + | | + + + + + | Narrative | Performed At | + + + | External films for comparison only | [facility] | | | | | No results will be in the chart. | | + + + + +---------+ + + | Performing | Address | City/State/Zipcode | Phone Number | | Organization | | | | + +---------+ + + | [facility] | | | | + +---------+ + + documented in this encounter Visit Diagnoses Not on filedocumented in this encounter"
--- OUTSIDE RECORDS SUMMARY | ~2019-11-01 | XMS | Encounter Summary ---
Demographics + + + | Address | [address] | | | [place] [address] | + + + | Home Phone [...] Team Providers + +------+ + | Care Foam Cutting Supervisor Name | Role | Phone | + +------+ + | Kirk French MD | PCP | | + +------+ + Encounter Details +--------+ + + + + | Date | Type | Department | Care Team | Description | +--------+ + + + + | 01/07/ | Hospital | [facility] | Conversion | | | 2017 | Encounter | [facility] | Transaction, | | | | | ULTRASOUND [address] | Provider Unknown | | | | | [address] [facility] [address] | [phone] | | | | | [place] | | | | | | [address] | Kirk French | | | | | [phone] | MD Eva Guidry | | | | | | [address] [place], | | | | | | [place] [address] | | | | | | [phone] | | | | | | | [...] + + + +---------+ + + | Burr-3 Fatty | CAPS, one capsule by | [...] | | | | | | [place] [address] | | | | | | [phone] | | | | | | | | +--------+ + + + + | 11/20/ | Implant | Cardiology | Daljit Singletary, | Remote Device | | 2018 | Monitor | | [address] [facility] | Interrogation | | | | | [address] [place], | (Primary Dx); | | | | | [place] [address] | Presence of | | | | | [phone] | permanent cardiac | | | | [...]
--- OUTSIDE RECORDS SUMMARY | ~2019-11-01 | XMS | Encounter Summary ---
Demographics + + + | Address | [address] | | | [place] [address] | + + + | Home Phone [...] Providers + +------+ + | Care Manager Sustainability Name | Role | Phone | + [...] 2019 | | GASTROENTEROLOGY | [address] [place] | | | | | [address] [place] | [address] [place], [place] | | | | | [address] [place], [place] | [address] | | | | | [address] | | | | | | [phone] | | | +--------+ + + + [...] [place], | | | | | | [place] [address] | | | | | | [phone] | | | | | | | | +--------+ + + + + | 11/20/ | Implant | Cardiology | Daljit Singletary, | Remote Device | | 2018 | Monitor | | MD [address] | Interrogation | | | | | [address] [place], | (Primary Dx); | | | | | [place] [address] | Presence of | | | | | [phone] | permanent cardiac | | | | [...]
--- OUTSIDE RECORDS SUMMARY | ~2019-11-01 | XMS | Encounter Summary ---
Demographics + + + | Address | [address] | | | [place] [address] | + + + | Home Phone [...] Providers + +------+ + | Care Cattle Manager Name | Role | Phone | [...] Provider Unknown | | | | | [place], [place] | [phone] | | | | | [address] | | | | | | [phone] | | | +--------+ + + + [...] 1 times a | | 0 | 03/09/20 | | | (BLOOD GLUCOSE TEST | [...] + + + +---------+ + + | Staples-3 Fatty | CAPS, one capsule by | [...] | | | | | | [place] [address] | | | | | | [phone] | | | | | | | | +--------+ + + + + | 11/20/ | Implant | Cardiology | Daljit Singletary, | Remote Device | | 2019 | Monitor | | [facility] | Interrogation | | | | | [place], | (Primary Dx); | | | | | [place] [address] | Presence of | | | | | [phone] | permanent cardiac | | | | [...] | + + | Kalpesh Brown - 07/05/2019 4:32 AM PDT This is a non-reportable procedure | | without a radiologist report and isused for image storage only | + + documented in this encounter Visit Diagnoses + + | Diagnosis | + + | Pain Generalized pain | + + documented in this encounter"
--- OUTSIDE RECORDS SUMMARY | ~2019-11-01 | XMS | Encounter Summary ---
Demographics + + + | Address | [address] | | | [place] [address] | + + + | Home Phone [...] Team Providers + +------+ + | Care Deer Farmer Name | Role | Phone | [...] CTR CASE | RN | ([facility]erral [facility]) | | | | MANAGEMENT [address] | | | | | | [place], | | | | | | [place] [address] | | | | | | [phone] | | | +--------+ + + + [...] [place], | | | | | | [place] [address] | | | | | | [phone] | | | | | | | | +--------+ + + + + | 11/20/ | Implant | Cardiology | Daljit Singletary, | Remote Device | | 2018 | Monitor | | [address] | Interrogation | | | | | [place], | (Primary Dx); | | | | | [place] [address] | Presence of | | | | | [phone] | permanent cardiac | | | | [...]
--- OUTSIDE RECORDS SUMMARY | ~2019-11-01 | XMS | Encounter Summary ---
Demographics + + + | Address | [address] | | | [place] [address] | + + + | Home Phone [...] Providers + +------+ + | Care Cloth Carrier Name | Role | Phone | + +------+ + PCP | Unavailable | + +------+ + Encounter Details +--------+ + + + + | Date | Type | Department | Care Team | Description | +--------+ + + + + | 05/13/ | Hospital | [facility] | | | | 2007 | Encounter | MED CTR EMERGENCY | | | | | | [place] [address] | | | | | | [place] | | | | | | [address] | | | | | | [phone] | | | +--------+ + + + [...] | | | | | | [place] [address] | | | | | | [phone] | | | | | | | | +--------+ + + + + | 11/20/ | Implant | Cardiology | Daljit Singletary, | Remote Device | | 2018 | Monitor | | [address] [facility] [place] | Interrogation | | | | | [place], | (Primary Dx); | | | | | [place] [address] | Presence of | | | | | [phone] | permanent cardiac | | | | [...]
--- OUTSIDE RECORDS SUMMARY | ~2019-11-01 | XMS | Encounter Summary ---
Demographics + + + | Address | [address] | | | [place] [address] | + + + | Home Phone [...] Providers + +------+ + | Care Manager Analytical Name | Role | Phone | + [...] [address] | | | | | [place], | [place], | | | | | [place] [address] | [place] [address] | | | | | [phone] | [phone] | | | | | | | [...] | | | | | | [place] [address] | | | | | | [phone] | | | | | | | | +--------+ + + + + | 11/20/ | Implant | Cardiology | Daljit Singletary, | Remote Device | | 2018 | Monitor | | MD [address] | Interrogation | | | | | [address] [place], | (Primary Dx); | | | | | [place] [address] | Presence of | | | | | [phone] | permanent cardiac | | | | [...]
--- OUTSIDE RECORDS SUMMARY | ~2019-11-01 | XMS | Encounter Summary ---
Demographics + + + | Address | [address] | | | [place] [address] | + + + | Home Phone [...] Team Providers + +------+ + | Care Sheriffs Name | Role | Phone | + [...] | Aneurysmal | [place], | [address] | | | | | dilatation | PARISA Solis | [place], | | | | | ([facility]) | [address] | [place] | | | | | Procedures | [place] | [address] | | | | | ECHO | [place], | Phone: | | | | | Complete | [place] | [phone] | | | | | | [address] | Fax: | | | | | | Phone: | [phone] | | | | | | [phone] | | | | | | | Fax: | | | | | | | [phone] | | +--------+--------+ + + + + [...] | | | | | Aneurysmal | [place], | [address] | | | | | dilatation | PARISA Solis | [place], | | | | | ([facility]) | [address] | [place] | | | | | Procedures | [place] | [address] | | | | | ECHO | [place], | Phone: | | | | | Complete | [place] | [phone] | | | | | | [address] | Fax: | | | | | | Phone: | [phone] | | | | | | [phone] | | | | | | | Fax: | | | | | | | [phone] | | +--------+--------+ + + + + Encounter Details +--------+ + + + + | Date | Type | Department | Care Team | Description | +--------+ + + + + | 11/16/ | Hospital | [facility] | [place]via, | Aneurysmal | | 2017 | Encounter | MED CTR ECHO [address] | Janeen, VET ASSISTANT [address] | dilatation (HCC) | | | | [place] | [place], | | | | | [place], [place] [address] | [place] [address] | | | | | [phone] | [phone] | | | | | | | [...] + + + +---------+ + + | [place]-3 Fatty | CAPS, one capsule by | [...] | 2018 | Visit | | PARISA Solis [address] | | | | | | [place], | | | | | | [place] [address] | | | | | | [phone] | | | | | | | | +--------+ + + + + | 11/20/ | Implant | Cardiology | Sydni Singletary, | Remote Device | | 2019 | Monitor | | MD [address] [facility] | Interrogation | | | | | 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 Foundry Worker SYDNI SINGLETARY, | | | MD | | | Gender Male Nurse | | | [facility] Assistant Procedure Type of | | | Study [...] | | | EF | | | Fzwyamopu46% Left Ventricle Diastolic Dimension: 5.12 cm | [...] Volume: 46.33 ml | | | EF Yfhxxogbh79% | | | | | | Left [...] + | Kevin, Rad Results In - 11/16/2017 1:48 PM [facility] Transthoracic Echocardiography Report | | (TTE) Demographics Patient Name VICTOR HUGO BARRY Room Number SARAH | | Patient [id number] Date of Study 11/16/2017 Number Visit Number | | [id number] Referring Physician GURJIT TROY | | Number NORMA SOLIS Date of | | 1960 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
--- OUTSIDE RECORDS SUMMARY | ~2019-11-01 | XMS | Encounter Summary ---
Demographics + + + | Address | [address] | | | [place] [address] | + + + | Home Phone [...] Team Providers + +------+ + | Care Blister Rust Eradicator Name | Role | Phone | + [...] | | | DDD | Scotty C, BOBTAILER | [facility] | | | | | (degenerativ | [address] | [facility] | | | | | e disc | [facility] | MEDICAL | | | | | disease), | [address] | CENTER [address] | | | | | lumbar | B | [place] | | | | | Chronic | [place], [place] | [place], | | | | | left-sided | [address] | [place] [address] | | | | | low back | Phone: | Phone: | | | | | pain with | [phone] | [phone] | | | | | left-sided | Fax: | Fax: | | | | | sciatica | [phone] | [phone] | | | | | History of [...] | | | DDD | Scotty C, BOBTAILER | [address] [place] | | | | | (degenerativ | [address] | [place], | | | | | e disc | [place] | [place] [address] | | | | | disease), | [address]IVE [address] | Phone: | | | | | lumbar | B | [phone] | | | | | Chronic | [place], [place] | Fax: | | | | | left-sided | [address] | [phone] | | | | | low back | Phone: | | | | | | pain with | [phone] | | | | | | left-sided | Fax: | | | | | | sciatica | [phone] | | | | | | History [...] + | 07/01/ | Hospital | [facility] | Scotty Galdamez, | DDD (degenerative | | 2018 | Encounter | MED CTR [address] | BOBTAILER [address] | disc disease), | | | | [place], | [address] | lumbar; Chronic | | | | [place] [address] | [place] [address] | left-sided low back | | | | [phone] | [phone] | pain with left-sided | | | [...] + + + +---------+ + + | [place]-3 Fatty | CAPS, one capsule by | [...] | | | | | | [place] [address] | | | | | | [phone] | | | | | | | | +--------+ + + + + | 11/20/ | Implant | Cardiology | AnshujohnsoncherelleShaistapawanotto, | Remote Device | | 2019 | Monitor | | [address] [facility] | Interrogation | | | | | [place], | (Primary Dx); | | | | | [place] [address] | Presence of | | | | | [phone] | permanent cardiac | | | | [...]
--- OUTSIDE RECORDS SUMMARY | ~2019-11-01 | XMS | Encounter Summary ---
Demographics + + + | Address | [address] | | | [place] [address] | + + + | Home Phone [...] Team Providers + +------+ + | Care Psychologist Chief Name | Role | Phone | [...] [address] | | | | | [place], | [place], | | | | | [place] [address] | [place] [address] | | | | | [phone] | [phone] | | | | | | | [...] W | | | | | | [place], | | | | | | [place] [address] | | | | | | [phone] | | | | | | | | +--------+ + + + + | 11/20/ | Implant | Cardiology | Daljit Singletary, | Remote Device | | 2018 | Monitor | | [address] [place] | Interrogation | | | | | [place], | (Primary Dx); | | | | | [place] [address] | Presence of | | | | | [phone] | permanent cardiac | | | | [...] Agency Comment | + + | [facility] | + + + +---------+ [...] Resulting Agency Comment | + + | [facility] | + + + +---------+ + [...] Agency Comment | + + | [facility] | + + + +---------+ [...] Resulting Agency Comment | + + | [facility] | + + + +---------+ + + [...] Resulting Agency Comment | + + | [facility] | + + + +---------+ + [...] Resulting Agency Comment | + + | [facility] | + + + +---------+ + [...] Resulting Agency Comment | + + | [facility] | + + + +---------+ + [...] Resulting Agency Comment | + + | [facility] | + + + +---------+ + [...] Resulting Agency Comment | + + | [facility] | + + + +---------+ + [...] Resulting Agency Comment | + + | [facility] | + + + +---------+ + [...] Agency Comment | + + | [facility] | + + + +---------+ [...] Resulting Agency Comment | + + | [facility] | + + + +---------+ + [...] Resulting Agency Comment | + + | [facility] | + + + +---------+ [...] Resulting Agency Comment | + + | [facility] | + + + +---------+ + [...] Resulting Agency Comment | + + | [facility] | + + + +---------+ + [...] Resulting Agency Comment | + + | [facility] | + + + +---------+ + [...] Resulting Agency Comment | + + | [facility] | + + + +---------+ + [...] Resulting Agency Comment | + + | [facility] | + + + +---------+ + [...] Resulting Agency Comment | + + | [facility] | + + + +---------+ + [...]
--- OUTSIDE RECORDS SUMMARY | ~2019-11-01 | XMS | Encounter Summary ---
Demographics + + + | Address | [address] | | | [place] [address] | + + + | Home Phone [...] Team Providers + +------+ + | Care Outside Collector Name | Role | Phone | + +------+ + PCP | Unavailable | + +------+ + Encounter Details +--------+ + + + + | Date | Type | Department | Care Team | Description | +--------+ + + + + | 10/13/ | Hospital | [facility] | | | | 2007 | Encounter | MED CTR EMERGENCY | | | | | | [place] [address] | | | | | | [place] | | | | | | [address] | | | | | | [phone] | | | +--------+ + + + [...] | | | | | | [place] [address] | | | | | | [phone] | | | | | | | | +--------+ + + + + | 11/20/ | Implant | Cardiology | Daljit Singletary, | Remote Device | | 2018 | Monitor | | [address] [facility] | Interrogation | | | | | [place], | (Primary Dx); | | | | | [place] [address] | Presence of | | | | | [phone] | permanent cardiac | | | | [...]
--- OUTSIDE RECORDS SUMMARY | ~2019-11-01 | XMS | Encounter Summary ---
Demographics + + + | Address | [address] | | | [place] [address] | + + + | Home Phone [...] Team Providers + +------+ + | Care Navigation Teacher Name | Role | Phone | [...] + + | 02/21/ | Office | [facility] | [place], | Coronary artery | | 2019 | Visit | CARDIOLOGY [address] | PARISA [place] [address] | disease involving | | | | [place], | [place], | mash[place] coronary | | | | [place] [address] | [place] [address] | artery of mash[place] | | | | [phone] | [phone] | heart without angina | | | [...] of non-critical coronary artery d isease involving mash[place] coronary artery of [place] heart without angina pectoris, essential h ypertension, [...] stay active. He enjoys hunting in his [place]. He has not had any [...] Preventative health care Coronary artery disease involving mash[place] coronary artery of [place] heart without angina pectoris Cannabis abuse, daily [...] 3RD DOSE, CALL 911 100 tablet 3 [place]-3 Fatty Acids (SALMON OIL-1000 PO) CAPS, one capsule by mouth daily twice daily ondansetron (ZOFRAN ODT) 4 mg disintegrating tablet Take 4 mg by mouth. ONE TOUCH DELICA LANCETS [facility] Check glucose as needed for hypoglycemia 100 [...] was found Confirmed by ANGELA MARADIAGA MD ([id number]) on 01/03/2019 8:10:39 PM LAB RESULTS reviewed during visit today primarily from [facility]: LIPID Lab Results Component Value Date [...] BNP 15 01/02/2019 I reviewed records from [facility] for angiogram results on 019 which is summarized in the HPI. RESULTS- I reviewed reports from [facility]: No results found. Left heart catheterization done [...] ASSESSMENT: 1. Non-critical Coronary artery disease involving mash[place] coronary artery of [place] heart [facility] angina pectoris: A.Normal exercise sestamibi stress [...] Symptoms with moderate exertion of t he [place] 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 Heart failure stage [...] performed by Dr Juan Diego Gambino at [facility] on 01/30/2013.Patient had spontaneous PVC's fro m [...] of presyncope [facility] thought to have vasovagal symptoms. B. Today, [...] this chart may have been created with GLOG voice recognition software. Occasi onal wrong-word or [...] | | | | | [place], | | | | | | [place] [address] | | | | | | [phone] | | | | | | | | +--------+ + + + + | 11/20/ | Implant | Cardiology | Daljit Singletary, | Remote Device | | 2018 | Monitor | | MD [address] [place] [address] | Interrogation | | | | | [place], | (Primary Dx); | | | | | [place] [address] | Presence of | | | | | [phone] | permanent cardiac | | | | [...] + + | Coronary artery disease involving mash[place] coronary artery of mash[place] heart without | | angina pectoris - Primary | + + | Symptomatic PVCs Other premature beats | + + | Essential hypertension Unspecified essential hypertension | + + documented in this encounter
--- OUTSIDE RECORDS SUMMARY | ~2019-11-01 | XMS | Encounter Summary ---
Demographics + + + | Address | [address] | | | [place] [address] | + + + | Home Phone [...] Team Providers + +------+ + | Care Artificial Cherry Maker Name | Role | Phone | [...] [address] | | | | | [address] | [place] | | | | | [phone] | [address] | | | | | | [phone] | | | | | | | [...] W | | | | | | [place], | | | | | | [place] [address] | | | | | | [phone] | | | | | | | | +--------+ + + + + | 11/20/ | Implant | Cardiology | Daljit Singletary, | Remote Device | | 2018 | Monitor | | MD [address] [place] [address] | Interrogation | | | | | [place], | (Primary Dx); | | | | | [place] [id number] | Presence of | | | | | [phone] | permanent cardiac | | | | [...] + +---------+ + + External Lab: CBC (04/11/2018 11:35 AM PDT) + + + [...]
--- OUTSIDE RECORDS SUMMARY | ~2019-11-01 | XMS | Encounter Summary ---
Demographics + + + | Address | [address] | | | [place] [address] | + + + | Home Phone [...] Team Providers + +------+ + | Care Pulpwood Buyer Name | Role | Phone | + [...] | | | | stenosis | L, SUMMER ANALYST [address] | | | | | | Procedures | [address] | | | | | | CT | [address] | | | | | | Myelography | [place], [place] | | | | | | Cervical | [address] | | | | | | Spine | Phone: | | | | | | | [phone] | | | | | | | Fax: | | | | | | | [phone] | | +--------+--------+ + + + + [...] + + | 06/04/ | Hospital | [facility] | Sariah, | Cervical spinal | | 2016 | Encounter | MED CTR CT [address] | [place] Mason SUMMER ANALYST [address] | stenosis | | | | [place], | [id number] | | | | | [place] [address] | [place] [address] | | | | | [phone] | [phone] | | | | | | | [...] + + + +---------+ + + | [place]-3 Fatty | CAPS, one capsule by | [...] | | | | | | [place] [address] | | | | | | [phone] | | | | | | | | +--------+ + + + + | 11/20/ | Implant | Cardiology | Daljit Singletary, | Remote Device | | 2019 | Monitor | | [address] [facility] | Interrogation | | | | | [place], | (Primary Dx); | | | | | [place] [address] | Presence of | | | | | [phone] | permanent cardiac | | | | [...] + | Performing | Address | City[facility] | Phone Number | [...]
--- OUTSIDE RECORDS SUMMARY | ~2019-11-01 | XMS | Encounter Summary ---
Demographics + + + | Address | [address] | | | [place] [address] | + + + | Home Phone [...] Team Providers + +------+ + | Care Neurocritical Care Physician Name | Role | Phone | [...] W | DISCLOSURE) | | | | [place], | [place], | | | | | [place] [address] | [place] [address] | | | | | [phone] | [phone] | | | | | | | [...] W | | | | | | [place], | | | | | | [place] [address] | | | | | | [phone] | | | | | | | | +--------+ + + + + | 11/20/ | Implant | Cardiology | Daljit Singletary, | Remote Device | | 2018 | Monitor | | [address] [facility] | Interrogation | | | | | [place], | (Primary Dx); | | | | | [place] [address] | Presence of | | | | | [phone] | permanent cardiac | | | | [...]
--- OUTSIDE RECORDS SUMMARY | ~2019-11-01 | XMS | Encounter Summary ---
Demographics + + + | Address | [address] | | | [place] [address] | + + + | Home Phone [...] Team Providers + +------+ + | Care Combination Building Inspector Name | Role | Phone | [...] Provider Unknown | | | | | [place], [place] | [phone] | | | | | [address] | | | | | | [phone] | | | +--------+ + + + [...] + + + +---------+ + + | [place]-3 Fatty | CAPS, one capsule by | [...] [place], | | | | | | [place] [address] | | | | | | [phone] | | | | | | | | +--------+ + + + + | 11/20/ | Implant | Cardiology | Daljit Singletary, | Remote Device | | 2018 | Monitor | | [address] [facility] | Interrogation | | | | | [place], | (Primary Dx); | | | | | [place] [address] | Presence of | | | | | [phone] | permanent cardiac | | | | [...]
--- OUTSIDE RECORDS SUMMARY | ~2019-11-01 | XMS | Encounter Summary ---
Demographics + + + | Address | [address] | | | [place] [address] | + + + | Home Phone [...] Team Providers + +------+ + | Care Crematory Operator Name | Role | Phone | + +------+ + | Michael Amanda DO | PCP | | + +------+ + Reason for Visit +--------+ + | Reason | Comments | +--------+ + | Other | Records sent | +--------+ + Encounter Details +--------+ + + + + | Date | Type | Department | Care Team | Description | +--------+ + + + + | 10/04/ | Telephone | [facility] | Daljit Singletary, | Other (Records sent) | | 2012 | | CARDIOLOGY [address] | MD [address] [place] [place] | | | | | [place], | [place], | | | | | [place] [address] | [place] [address] | | | | | [phone] | | | | | | | [...] W | | | | | | [place], | | | | | | [place] [address] | | | | | | [phone] | | | | | | | | +--------+ + + + + | 11/20/ | Implant | Cardiology | Daljit Singletary, | Remote Device | | 2018 | Monitor | | [address] [facility] | Interrogation | | | | | [place], | (Primary Dx); | | | | | [place] [address] | Presence of | | | | | [phone] | permanent cardiac | | | | [...]
--- OUTSIDE RECORDS SUMMARY | ~2019-11-01 | XMS | Encounter Summary ---
Demographics + + + | Address | [address] | | | [place] [address] | + + + | Home Phone [...] Team Providers + +------+ + | Care Melt House Centrifugal Operator Name | Role | Phone | [...] | | | Chest pain, | MD Sydni | Medicine | | | | | unspecified | [address] | [address] | | | | | type | [address] | [place], | | | | | Procedures | [place], | [place] | | | | | [place] | [place] [address] | [address] | | | | | Stress Test | Phone: | Phone: | | | | | (Vasodilator | [phone] | [phone] | | | | | ) CHG | Fax: | Fax: | | | | | MYOCARDIAL | [phone] | [phone] | | | | | SPECT | | | | | | | MULTIPLE | | | | | | | STUDIES IN | | | | | | | CV STRS TST | | | | | | | XERS&/OR RX | | | | | | | CONT ECG W/O | | | | | | | I&R IN | | | | | | | CARDIAC | | | | | | | STRESS | | | | | | | TST,INTERP/R | | | | | | | EPT ONLY | | | +--------+--------+ + + + + Reason for Visit + + + | Reason | Comments | + + + | Follow-up | ed follow up | + + + | Chest Pain | | + + + | Palpitations | | + + + Follow Up (Routine) +--------+ + + + + + | Status | Reason | Specialty | Diagnoses / | Referred By | Referred To | | | | | Procedures | Contact | Contact | +--------+ + + + + + | Closed | Specialty | Cardiology | Diagnoses | Ankit, | Gemini | | | Services | | Chest pain, | Franki | MD Sydni | | | Required | | unspecified | MD Martell | [address] | | | | | type | [address] | [address] | | | | | Procedures | [place] | [place], | | | | | FUP | [place] | [place] [address] | | | | | | [address] | Phone: | | | | | | Phone: | [phone] | | | | | | [phone] | Fax: | | | | | | Fax: | [phone] | | | | | | [phone] | | +--------+ + + + + + Encounter Details +--------+---------+ + + + | Date | Type | Department | Care Team | Description | +--------+---------+ + + + | 06/27/ | Office | [facility] | Sydni Singletary, | Pacemaker | | 2017 | Visit | CARDIOLOGY [address] | [address] [facility] | reprogramming/check | | | | [address] [place], | [place], | DO NOT DELETE | | | | [place] [address] | [place] [address] | (Primary Dx); Chest | | | | [phone] | [phone] | pain, unspecified | | | | | | type; Palpitations; | | | | | | Sinoatrial [...] | | | | | 06/14/2009 | +--------+---------+ + + + Social History [...] + + + | Blood Pressure | 132/86 | 06/27/2018 2:11 PM | | | | | PDT | | + + + + + | Pulse | 75 | 06/27/2018 2:11 PM | | | | | PDT | | + + + + + | Temperature | - | - | | + + + + + | Respiratory Rate | 20 | 06/27/2018 2:11 PM | | | | | PDT | | + + + + + | Oxygen Saturation | - | - | | + + + + + | Inhaled Oxygen | - | - | | | Concentration | | | | + + + + + | Weight | 113.9 kg (251 lb) | 06/27/2018 2:11 PM | | | | | PDT | | + + + + + | Height | 193 cm (6' 4") | 06/27/2018 2:11 PM | | | | | PDT | | + + + + + | Body Mass Index | 30.55 | 06/27/2018 2:11 PM | | | | | [...] of this encounter Patient Instructions Patient Instructions Mariana Valentine RN - 06/27/2018 1:30 PM PDT Persantine/Lexiscan Myoview Date: Check-in Time: Where to Check In: Instructions 1. Nothing to eat or drink anything 6 hours prior to Persantine/Lexiscan 2. DO NOT drink caffeine 12 hours prior to the test. 3. DO NOT take any Metoprolol or Nitro SL the night before or the morning of the test. 4. You can take all other medications the morning of the test with a small sip of water. 5. Please bring a list of your current medications with you. Resting Portion of test: Date: Check-in Time: Where to Check In: [facility]/Event Monitor: 4 weeks Date: Check-In Time: Where to Check In: Start flecainide 100 mg twice a day EKG 06/29/18 and 06/30/18 Follow up appointment: after test Provider: Date: Check-In Time: documented in this encounter Progress Notes Sydni Singletary MD - 06/27/2018 1:30 PM PDTFormatting of this note might be different f rom the original. PATIENT NAME: Moe Sanchez : 1960: AGE: 58 y.o. PRIMARY CARE: Kirk French MD OUTPATIENT FOLLOW UP VISIT Date of Service: 06/27/2018 HISTORY OF PRESENT ILLNESS: Moe Sanchez is a 58 y.o. male with a history of non-critical coronary artery d isease involving rincon coronary artery of rincon heart without angina pectoris, essential h ypertension, symptomatic bradycardia status post Medtronic dual-chamber permanent pacemaker implantation 06/14/09, frequent premature ventricular contractions status post ablation sprin g 2012, and bipolar disorder with anxiety. He is being seen today for emergency department f ollow up. He was last seen 01/05/2018 at which time patient was to continue with present plan and medi cations. Since that time, patient has been seen at [place] emergency department on 018 for chest pain and palpitations with shortness of breath by Martell Hart MD. Today, patient reports chest pain he attributes to anxiety. He also continues to have occas ional palpitations along with shortness of breath. Patient is physically inactive due to sofi ropathy. Patient denies breathlessness. There is no dizziness or lightheadedness. There is n o ankle or leg swelling. Patient can sleep on one pillow at night without difficulty breathi ng. MEDICAL, SURGICAL, AND PERSONAL HISTORY Past Medical, [...] Preventative health care Coronary artery disease involving rincon coronary artery of rincon heart without angina pectoris Cannabis abuse, daily [...] by mouth every evening 90 tablet 0 [employer] [facility] [employer] Natural Products (OSTEO BI-FLEX/5-LOXIN ADVANCED PO) Take [...] 3RD DOSE, CALL 911 100 tablet 3 [place]-3 Fatty Acids (SALMON OIL-1000 PO) CAPS, one capsule by mouth daily twice daily ONE TOUCH DELICA LANCETS [facility] Check glucose as needed for hypoglycemia 100 each 3 pravastatin (PRAVACHOL) 40 MG tablet take 1 tablet by mouth NIGHTLY 90 tablet 3 rOPINIrole (REQUIP) 1 mg tablet Take [...] of Systems Constitutional: Negative for malaise/fatigue. Respiratory: Positive for shortness of breath. Cardiovascular: Positive for chest pain and palpitations. Negative for leg swelling. Neurological: Negative for dizziness and weakness. Lightheaded = No OBJECTIVE: PHYSICAL EXAM BP 132/86 | Pulse 75 | Resp 20 | Ht 1.93 m (6' 4") | Wt 113.9 kg (251 lb) | BMI 30.55 kg/m Physical Exam Constitutional: He is oriented to person, place, and time. He appears well-developed and we ll-nourished. Tall male individual in no acute distress. Neck: Normal carotid pulses and no JVD present. Carotid bruit is not present. Cardiovascular: Normal rate, regular rhythm, S1 normal, S2 normal, normal heart sounds and intact distal pulses. PMI is not displaced. Exam reveals no gallop and no friction rub. No murmur heard. Pulses: Carotid pulses are 2+ on the right side, and 2+ on the left side. Posterior tibial pulses are 2+ on the right side, and 2+ on the left side. Pulmonary/Chest: Effort normal and breath sounds normal. No accessory muscle usage. No resp iratory distress. He has no wheezes. He has no rhonchi. He has no rales. Abdominal: Soft. Normal appearance and normal aorta. He exhibits no abdominal bruit. There is no hepatosplenomegaly. There is no tenderness. Musculoskeletal: He exhibits no edema. Neurological: He is alert and oriented to person, place, and time. Gait normal. Skin: Skin is warm and dry. No cyanosis. Nails show no clubbing. Psychiatric: He has a normal mood and affect. His mood appears not anxious. He does not exh ibit a depressed mood. ECG: Atrial paced rhythm. LAB RESULTS reviewed during visit today primarily from [facility]: LIPID Lab Results Component Value Date TRIG 88 05/27/2012 HDL 42 05/27/2012 LDL 173 (A) 05/27/2012 CHOLHDL 3.4 06/22/2016 LDLEX 76 10/18/2017 HDLEX 63 10/18/2017 TRIGEX 63 10/18/2017 CHOLEX 152 10/18/2017 CHEMISTRY Lab Results Component Value Date GLU 78 06/21/2018 GLUEX 85 04/11/2018 NA 138 06/21/2018 NAEX 144 04/11/2018 K 3.8 06/21/2018 KEX 4.1 04/11/2018 CL 107 06/21/2018 CLEX 111 (A) 04/11/2018 CO2 25 06/21/2018 CO2EX 27 04/11/2018 CALCIUM 9.0 06/21/2018 ALKPHOS 55 06/21/2018 AST 30 06/21/2018 ASTEX 30 04/11/2018 ALT 26 06/21/2018 ALTEX 28 10/18/2017 BILITOT 1.1 06/21/2018 CREA 0.82 06/21/2018 BUN 16 06/21/2018 EGFR >60 04/03/2013 EGFREX >60 04/11/2018 CREEX 1.1 04/11/2018 HEMATOLOGY Lab Results Component Value Date WBC 6.0 06/21/2018 WBCEX 8.44 04/11/2018 HGB 17.0 06/21/2018 HGBEX 15.6 04/11/2018 HCT 48.6 06/21/2018 HCTEX 45.5 04/11/2018 PLT 144 06/21/2018 PLTEX 157 04/11/2018 I reviewed records from Martell Hart MD for office visit on 06/21/2018. Above data and testing is reviewed this [...] ventricular arrhythmia performed by Dr. Gambino at [facility] on 01/30/2013. Patient had spontaneous [...] go back in 3 days to [place] for an attempt of ablation under [...] noted during any of the transmissions. E. Patient reports more frequent palpitations along with shortness of breath. Pacemaker interrogation reveals the significantly increased PVC burden at least 20 times since January,. It appears that his symptoms of palpitation is caused by recurr ent PVCs. 2. Non-critical Coronary artery disease involving rincon coronary artery of rincon heart [facility] angina pectoris: A. Normal exercise sestamibi stress test on 05/25/09. LVEF by [facility] ed SPECT was 53%. B. Echocardiogram from [...] cannot completely be ruled out . D. [facility] 12/25/13, shows non critical coronary artery [...] IVC with normal respiratory collapse H. Today, patient reports chest pain. He also continues to have occasional palp itations. Patient is physically inactive due to neuropathy. There is no signs and symptoms o f overt congestive heart failure. He is in a class I of [place] [employer] Association functiona l class. There is no fluid retention on physical examination. 3. Essential hypertension with goal blood pressure [...] [facility] thought to have vasovagal symptoms. B. He denies any symptoms. 6. History of cigarette smoking. 7. [...] spring. D. See section 1F PLAN: 1. Treat symptomatic recurrent PVCs with additional flecainide 100 mg twice a day. 2. Check EKG once a day 2. 3. Schedule patient for 4 week event monitor for palpitations/PVCs to determine morphology . Patient might be a candidate for repeat PVC ablation. 4. Schedule patient for stress test for the work up of chest pain and risk stratify CAD. 5. I recommend a therapeutic lifestyle change including walking 30 minutes a day, choosing healthy choices of diet , including DASH diet and weight reduction. 6. Follow-up in 6 to 8 weeks. I, Allyson Curtis, am acting as a scribe on behalf of, and in the presence of Sydni parkinson MD. I have reviewed and edited this note. Allyson Curtis, Patrol Community Service Officer 06/27/2018 I, Sydni Singletary MD, personally performed the services described in this documentation, as scribed in my presence and it is both accurate and complete. Allyson Curtis, Med Ass t 06/27/2018 14:15 Electronically signed by: Sydni Singletary MD [facility] 06/27/2018 Portions of this chart may have been created with Muse[employer]mi voice recognition software. Occasi onal wrong-word or sound-alike substitutions may have occurred due to the inherent granger itations of voice recognition software. Please read the chart carefully and recognize, using context, where these substitutions have occurred documented in this encounter Plan of Treatment [...] | | | | | | [place] [address] | | | | | | [phone] | | | | | | | | +--------+ + + + + | 11/20/ | Implant | Cardiology | Sydni Singletary, | Remote Device | | 2019 | Monitor | | MD [address] [facility] | Interrogation | | | | | [place], | (Primary Dx); | | | | | [place] [address] | Presence of | | | | | [phone] | permanent cardiac | | | | [...] | ECG 12 LEAD | Routin | 06/27/2018 | Chest pain, | Results for this | | | e | 2:06 PM | unspecified type | procedure are in the | | | | PDT | | results section. | + +--------+ + + + | DEVICE INTERROGATION | Routin | 06/27/2018 | Pacemaker | Results for this | | | e | 1:30 PM | reprogramming/check | procedure are in [...] + | DEVICE INTERROGATION | Routin | 06/27/2018 | Pacemaker | Results for this | | | e | 1:30 PM | reprogramming/check | procedure are in [...] + + documented in this encounter Results Event monitor - 4 week (08/25/2018 1:11 PM PDT) + + + | Narrative | Performed At | + + + | Sydni Singletary MD 08/25/2018 13:12 Wireless even study from | [facility] | | 07/21 until 08/22/2018. Baseline EKG shows atrial paced rhythm with | | | heart rate of 75-130 bpm. PACs in couplets and PVCs were noted. | | + + + + +---------+ + + | Performing | Address | City/State/Zipcode | Phone Number | | Organization | | | | + +---------+ + + | [facility] | | | | + +---------+ + + [place] Nuclear Stress Test (Vasodilator) (07/21/2018 12:25 [...] + +---------+ + + ECG 12 lead (06/27/2018 2:06 PM PDT) + + + + + [...] + + + + | QRS | 108 | ms | [facility] | | | DURATION | | | | | + + + + + + | Q-T | 370 | ms | [facility] | | | INTERVAL | | | | | + + + + + + | Q-T | 413 | ms | [facility] | | | INTERVAL | | | | | | (CORRECTED) | | | | | + + + + + + | P WAVE AXIS | 23 | degrees | [facility] | | + + + + + + | QRS AXIS | 44 | degrees | [facility] | | + + + + + + | T AXIS | 34 | degrees | [facility] | | + + + + + + | INTERPRETAT | Atrial-paced rhythm with | | [facility] | | | ION TEXT | prolonged AV | | | | | | conductionAbnormal | | | | | | ECGWhen compared with | | | | | | ECG of 21-JUN-2018 | | | | | | 10:55,No significant | | | | | | change was | | | | | | foundConfirmed by | | | | | | GEMINI WINKLER, SYDNI | | | | | | ([id number]) on 06/27/2018 | | | | | | 4:27:50 PM | | | | + + [...] | | | + +---------+ + + Device Interrogation (06/27/2018 1:30 PM PDT) + + + | Narrative [...] | cardiac pacemaker | + + | Chest pain, unspecified type | + + | Palpitations | + + | Sinoatrial node dysfunction (HCC) with symptomatic bradycardia Sinoatrial node | | dysfunction | + + | Pacemaker - Medtronic - [id number] Adapta - Implanted 06/14/2009 Cardiac pacemaker in situ | + + documented in this encounter
--- OUTSIDE RECORDS SUMMARY | ~2019-11-01 | XMS | Encounter Summary ---
Demographics + + + | Address | [address] | | | [place] [address] | + + + | Home Phone [...] Providers + +------+ + | Care Motor Equipment Commanding Officer Name | Role | Phone | + +------+ + PCP | Unavailable | + +------+ + Encounter Details +--------+ + + + + | Date | Type | Department | Care Team | Description | +--------+ + + + + | 06/12/ | [facility] | [facility] | Hunter Antunez, | | | 2007 - | Encounter | MED CTR ICU [address] | MD [address] | | | | | [place], | [place] | | | 06/15/ | | [place] [address] | [address] | | | 2007 | | [phone] | | | +--------+ + + + [...] | | | | | | [place] [address] | | | | | | [phone] | | | | | | | | +--------+ + + + + | 11/20/ | Implant | Cardiology | Daljit Singletary, | Remote Device | | 2019 | Monitor | | MD [address] | Interrogation | | | | | [place], | (Primary Dx); | | | | | [place] [address] | Presence of | | | | | [phone] | permanent cardiac | | | | [...]
--- OUTSIDE RECORDS SUMMARY | ~2019-11-01 | XMS | Encounter Summary ---
Demographics + + + | Address | [address] | | | [place] [address] | + + + | Home Phone [...] Team Providers + +------+ + | Care Creative Lead Name | Role | Phone | [...] loss | [address] | [address], | | | | | Anxiety | [address] | [address] | | | | | disorder, | [address] | [place], | | | | | unspecified | [place], [place] | [place] [address] | | | | | Chronic | [address] | Phone: | | | | | pain | Phone: | [phone] | | | | | syndrome | [phone] | Fax: | | | | | Procedures | Fax: | [phone] | | | | | office visit | [phone] | | +--------+--------+ + + + + Encounter Details +--------+---------+ + + + | Date | Type | Department | Care Team | Description | +--------+---------+ + + + | 12/26/ | Office | [facility] | Emmanuel Dnaiel MD | Functional diarrhea | | 2019 | Visit | GASTROENTEROLOGY | [address], [place] | (Primary Dx); | | | | [address] | [address] [place], [place] | Gastrointestinal | | | | [address] [place], [place] | [address] | hemorrhage | | | | [address] | | associated with | | | | [phone] | | anorectal source; | | | [...] | | | | | | [place] [address] | | | | | | [phone] | | | | | | | | +--------+ + + + + | 11/20/ | Implant | Cardiology | Daljit Singletary, | Remote Device | | 2019 | Monitor | | [address] [facility] | Interrogation | | | | | [place], | (Primary Dx); | | | | | [place] [address] | Presence of | | | | | [phone] | permanent cardiac | | | | [...]
--- OUTSIDE RECORDS SUMMARY | ~2019-11-01 | XMS | Encounter Summary ---
Demographics + + + | Address | [address] | | | [place] [address] | + + + | Home Phone [...] Team Providers + +------+ + | Care Charge Poster Name | Role | Phone | + +------+ + PCP | Unavailable | + +------+ + Encounter Details +--------+ + + + + | Date | Type | Department | Care Team | Description | +--------+ + + + + | 11/05/ | [facility] | [facility] | Naresh Mckeon | | | 2009 | Encounter | MED CTR SLEEP | MD Chaya [address] | | | | | CENTER [address] | [place] | | | | | [place] | [place] [address] | | | | | [address] | [phone] | | | | | [phone] | | | +--------+ + + + [...] | | | | | | [place] [address] | | | | | | [phone] | | | | | | | | +--------+ + + + + | 11/20/ | Implant | Cardiology | Daljit Singletary, | Remote Device | | 2019 | Monitor | | MD [address] | Interrogation | | | | | [place], | (Primary Dx); | | | | | [place] [address] | Presence of | | | | | [phone] | permanent cardiac | | | | [...]
--- OUTSIDE RECORDS SUMMARY | ~2019-11-01 | XMS | Encounter Summary ---
Demographics + + + | Address | [address] | | | [place] [address] | + + + | Home Phone [...] Team Providers + +------+ + | Care Estimator Lumber Name | Role | Phone | + [...] + + | 06/26/ | Telephone | [facility] [place] [facility] | Jacek Holm, | Results | | 2012 | | MEDICINE [place] | [address] | | | | | [address] | [place] | | | | | [place] | [address] | | | | | [address] | | | | | | [phone] | | | +--------+ + + + [...] W | | | | | | [place], | | | | | | [place] [address] | | | | | | [phone] | | | | | | | | +--------+ + + + + | 11/20/ | Implant | Cardiology | Daljit Singletary, | Remote Device | | 2018 | Monitor | | MD [address] | Interrogation | | | | | [place], | (Primary Dx); | | | | | [place] [address] | Presence of | | | | | [phone] | permanent cardiac | | | | [...]
--- OUTSIDE RECORDS SUMMARY | ~2019-11-01 | XMS | Encounter Summary ---
Demographics + + + | Address | [address] | | | [place] [address] | + + + | Home Phone [...] Team Providers + +------+ + | Care Theatrical Rigger Name | Role | Phone | + [...] | 07/07/ | Telephone | [facility] [place] | Daljit Singletary, | Appointment | | 2012 | | CARDIOLOGY [address] | MD [address] [place] | | | | | [place], | [place], | | | | | [place] [address] | [place] [address] | | | | | [phone] | [phone] | | | | | | | [...] | | | | | | [place] [address] | | | | | | [phone] | | | | | | | | +--------+ + + + + | 11/20/ | Implant | Cardiology | Daljit Singletary, | Remote Device | | 2018 | Monitor | | [address] [facility] | Interrogation | | | | | [place], | (Primary Dx); | | | | | [place] [address] | Presence of | | | | | [phone] | permanent cardiac | | | | [...]
--- OUTSIDE RECORDS SUMMARY | ~2019-11-01 | XMS | Encounter Summary ---
Demographics + + + | Address | [address] | | | [place] [address] | + + + | Home Phone [...] Providers + +------+ + | Care Electric Motorman Name | Role | Phone | + +------+ + PCP | Unavailable | + +------+ + Encounter Details +--------+ + + + + | Date | Type | Department | Care Team | Description | +--------+ + + + + | 06/14/ | [facility] | [facility] | Kennethshaistatesha Shaistakenneth, | | | 2008 - | Encounter | MED CTR MP INTRA OP | [address] | | | | | [address] | [address] [place], | | | 06/15/ | | [place] | [place] [address] | | | 2008 | | [address] | [phone] | | | | | [phone] | | | +--------+ + + + [...] W | | | | | | [place], | | | | | | [place] [address] | | | | | | [phone] | | | | | | | | +--------+ + + + + | 11/20/ | Implant | Cardiology | Daljit Singletary, | Remote Device | | 2019 | Monitor | | MD [address] | Interrogation | | | | | [place], | (Primary Dx); | | | | | [place] [address] | Presence of | | | | | [phone] | permanent cardiac | | | | [...]
--- OUTSIDE RECORDS SUMMARY | ~2019-11-01 | XMS | Encounter Summary ---
Demographics + + + | Address | [address] | | | [place] [address] | + + + | Home Phone | | + + + | Preferred Language | Unknown | + + + | Marital Status | | + + + | Zoroastrian Affiliation | 1013 | + + + | Race | Unknown | + + + | Ethnic Group | Unknown | + + + Author + + + | Author | [facility] | | | and [place] | + + + | Organization | [facility] | | [...] Team Providers + +------+ + | Care Qual Field Manager Name | Role | Phone | + +------+ + PCP | Unavailable | + +------+ + Encounter Details +--------+ + + + + | Date | Type | Department | Care Team | Description | +--------+ + + + + | 01/31/ | Hospital | [facility] | | | | 2008 | Encounter | MED CTR EMERGENCY | | | | | | [place] [address] | | | | | | [place] | | | | | | [address] | | | | | | [phone] | | | +--------+ + + + [...] | | | | | | [place] [address] | | | | | | [phone] | | | | | | | | +--------+ + + + + | 11/20/ | Implant | Cardiology | Daljit Singletary, | Remote Device | | 2018 | Monitor | | [address] [facility] | Interrogation | | | | | [place], | (Primary Dx); | | | | | [place] [address] | Presence of | | | | | [phone] | permanent cardiac | | | | [...]
--- OUTSIDE RECORDS SUMMARY | ~2019-11-01 | XMS | Encounter Summary ---
Demographics + + + | Address | [address] | | | [place] [address] | + + + | Home Phone [...] Team Providers + +------+ + | Care Geodesy Teacher Name | Role | Phone | [...] Refill | | 2013 | | MEDIC[facility] [place] | DO [address] | | | | | [address] | [place] | | | | | [place] | [address] | | | | | [address] | | | | | | [phone] | | | +--------+--------+ + + + [...] W | | | | | | [place], | | | | | | [place] [address] | | | | | | [phone] | | | | | | | | +--------+ + + + + | 11/20/ | Implant | Cardiology | Daljit Singletary, | Remote Device | | 2018 | Monitor | | [address] [facility] | Interrogation | | | | | [place], | (Primary Dx); | | | | | [place] [address] | Presence of | | | | | [phone] | permanent cardiac | | | | [...]
--- OUTSIDE RECORDS SUMMARY | ~2019-11-01 | XMS | Encounter Summary ---
Demographics + + + | Address | [address] | | | [place] [address] | + + + | Home Phone [...] Providers + +------+ + | Care Cloth Dyeing Range Tender Name | Role | Phone | + +------+ + PCP | Unavailable | + +------+ + Encounter Details +--------+ + + + + | Date | Type | Department | Care Team | Description | +--------+ + + + + | 06/13/ | [facility] | [facility] | Daljit Singletary, | | | 2008 | Encounter | MED CTR LABORATORY | [address] | | | | | [address] [place] | [address] [place], | | | | | [place] | [place] [address] | | | | | [address] | [phone] | | | | | [phone] | | | +--------+ + + + [...] W | | | | | | [place], | | | | | | [place] [address] | | | | | | [phone] | | | | | | | | +--------+ + + + + | 11/20/ | Implant | Cardiology | Daljit Singletary, | Remote Device | | 2019 | Monitor | | MD [address] | Interrogation | | | | | [facility] [place], | (Primary Dx); | | | | | [place] [address] | Presence of | | | | | [phone] | permanent cardiac | | | | [...]
--- OUTSIDE RECORDS SUMMARY | ~2019-11-01 | XMS | Encounter Summary ---
Demographics + + + | Address | [id number] [place] [address] | | | [place] [address] | + + + | Home Phone [...] + + + | Author | [facility] | + + + | Organization | [facility] | + + + | Address | Unknown | + + + | Phone | Unavailable | + + + Support + + + + + | Name | Relationship | Address | Phone | + + + + + | Rachel Valencia | ELIEZER | [place] | | | | | [address] | | + + + + + Care Team Providers + +------+ + | Care Learning And Development Administrator Name | Role | Phone | [...] at [facility] [address] | MD [address] | Review | | | | [address] | [place], [place] | | | | | Mailcode: [place] | [address] | | | | | for Health and | [phone] | | | | | [facility] [address] | | | | | | [place], [place] | | | | | | [address] | | | | | | [phone] | | | +--------+ + + + [...]
--- OUTSIDE RECORDS SUMMARY | ~2019-11-01 | XMS | Encounter Summary ---
Demographics + + + | Address | [address] | | | [place] [address] | + + + | Home Phone [...] Team Providers + +------+ + | Care Contract Attorney Name | Role | Phone | [...] [address] | | | | | | [place], [place] | (Fax) | | | | | [address] | | | | | | [phone] | | | +--------+ + + + [...] | | | | | | [place] [address] | | | | | | [phone] | | | | | | | | +--------+ + + + + | 11/20/ | Implant | Cardiology | Daljit Singletary, | Remote Device | | 2018 | Monitor | | [facility] | Interrogation | | | | | [place], | (Primary Dx); | | | | | [place] [address] | Presence of | | | | | [phone] | permanent cardiac | | | | [...]
--- OUTSIDE RECORDS SUMMARY | ~2019-11-01 | XMS | Encounter Summary ---
Demographics + + + | Address | [address] | | | [place] [address] | + + + | Home Phone [...] Providers + +------+ + | Care Pumper Gager Apprentice Name | Role | Phone | + +------+ + PCP | Unavailable | + +------+ + Encounter Details +--------+ + + + + | Date | Type | Department | Care Team | Description | +--------+ + + + + | 06/14/ | Hospital | [facility] OP | Conversion | | | 2000 | Encounter | CONVERSION | Transaction, | | | | | DEPARTMENT [address] | Provider Unknown | | | | | [address] | | | | | | [place], [place] | (Fax) | | | | | [address] | | | | | | [phone] | | | +--------+ + + + [...] | | | | | | [place] [address] | | | | | | [phone] | | | | | | | | +--------+ + + + + | 11/20/ | Implant | Cardiology | Daljit Singletary, | Remote Device | | 2018 | Monitor | | [facility] | Interrogation | | | | | [place], | (Primary Dx); | | | | | [place] [address] | Presence of | | | | | [phone] | permanent cardiac | | | | [...]
--- OUTSIDE RECORDS SUMMARY | ~2019-11-01 | XMS | Encounter Summary ---
Demographics + + + | Address | [address] | | | [place] [address] | + + + | Home Phone [...] Team Providers + +------+ + | Care Button Bradder Name | Role | Phone | + [...] | +--------+ + + + + | 03/24/ | Telephone | [facility] | [place], | Other (chest pain) | | 2018 | | CARDIOLOGY [address] | PARISA [place] [address] | | | | | [place], | [place], | | | | | [place] [address] | [place] [address] | | | | | [phone] | [phone] | | | | | | | [...] | | | | | | [place] [address] | | | | | | [phone] | | | | | | | | +--------+ + + + + | 11/20/ | Implant | Cardiology | Daljit Singletary, | Remote Device | | 2019 | Monitor | | MD [address] | Interrogation | | | | | [place], | (Primary Dx); | | | | | [place] [address] | Presence of | | | | | [phone] | permanent cardiac | | | | [...]
--- OUTSIDE RECORDS SUMMARY | ~2019-11-01 | XMS | Encounter Summary ---
Demographics + + + | Address | [address] | | | [place] [address] | + + + | Home Phone [...] Providers + +------+ + | Care Automotive Upholsterer Name | Role | Phone | [...] 2019 | | GASTROENTEROLOGY | [address], [place] | | | | | [address] [place] | [address] [place], [place] | | | | | [address] [place], [place] | [address] | | | | | [address] | | | | | | [phone] | | | +--------+--------+ + + + [...] | | | | | | [place] [address] | | | | | | [phone] | | | | | | | | +--------+ + + + + | 11/20/ | Implant | Cardiology | Daljit Singletary, | Remote Device | | 2018 | Monitor | | [address] | Interrogation | | | | | [place], | (Primary Dx); | | | | | [place] [address] | Presence of | | | | | [phone] | permanent cardiac | | | | [...]
--- OUTSIDE RECORDS SUMMARY | ~2019-11-01 | XMS | Encounter Summary ---
Demographics + + + | Address | [address] | | | [place] [address] | + + + | Home Phone [...] Team Providers + +------+ + | Care Amortization Schedule Clerk Name | Role | Phone | + +------+ + PCP | Unavailable | + +------+ + Encounter Details +--------+ + + + + | Date | Type | Department | Care Team | Description | +--------+ + + + + | 04/23/ | Hospital | [facility] | | | | 2007 - | Encounter | MED CTR MED ONC | | | | | | [address] | | | | 04/24/ | | [place] [address] | | | | 2007 | | [phone] | | | +--------+ + + + [...] | | | | | | [place] [address] | | | | | | [phone] | | | | | | | | +--------+ + + + + | 11/20/ | Implant | Cardiology | Daljit Singletary, | Remote Device | | 2018 | Monitor | | [address] [facility] | Interrogation | | | | | [place], | (Primary Dx); | | | | | [place] [address] | Presence of | | | | | [phone] | permanent cardiac | | | | [...]
--- OUTSIDE RECORDS SUMMARY | ~2019-11-01 | XMS | Encounter Summary ---
Demographics + + + | Address | [address] | | | [place] [address] | + + + | Home Phone [...] Team Providers + +------+ + | Care Traffic Operations Engineer Name | Role | Phone | + +------+ + PCP | Unavailable | + +------+ + Encounter Details +--------+ + + + + | Date | Type | Department | Care Team | Description | +--------+ + + + + | 02/07/ | [facility] | [facility] | Unknown, | | | 1995 | Encounter | MED CTR XRAY [address] | MD Stefany | | | | | [address] [place] | | | | | | [place] [address] | (Fax) | | | | | [phone] | | | +--------+ + + + [...] | | | | | | [place] [address] | | | | | | [phone] | | | | | | | | +--------+ + + + + | 11/20/ | Implant | Cardiology | Daljit Singletary, | Remote Device | | 2019 | Monitor | | [address] [facility] | Interrogation | | | | | [address] [place], | (Primary Dx); | | | | | [place] [address] | Presence of | | | | | [phone] | permanent cardiac | | | | [...]
--- OUTSIDE RECORDS SUMMARY | ~2019-11-01 | XMS | Encounter Summary ---
Demographics + + + | Address | [address] | | | [place] [address] | + + + | Home Phone [...] Team Providers + +------+ + | Care Tissue Technician Name | Role | Phone | [...] [address] | | | | | | [place], [place] | (Fax) | | | | | [address] | | | | | | [phone] | | | +--------+ + + + [...] | | | | | | [place] [address] | | | | | | [phone] | | | | | | | | +--------+ + + + + | 11/20/ | Implant | Cardiology | Daljit Singletary, | Remote Device | | 2018 | Monitor | | [address] [facility] | Interrogation | | | | | [facility], | (Primary Dx); | | | | | [place] [address] | Presence of | | | | | [phone] | permanent cardiac | | | | [...]
--- OUTSIDE RECORDS SUMMARY | ~2019-11-01 | XMS | Encounter Summary ---
Demographics + + + | Address | [address] | | | [place] [address] | + + + | Home Phone [...] Team Providers + +------+ + | Care Security Researcher Name | Role | Phone | + +------+ + | Kirk French MD | PCP | | + +------+ + Encounter Details +--------+ + + + + | Date | Type | Department | Care Team | Description | +--------+ + + + + | 01/25/ | Hospital | [facility] | Daljit Singletary, | Stable angina | | 2019 | Encounter | MED CTR CV INTRA OP | MD [address] | pectoris (HCC) | | | | [address] | [address] [place], | | | | | [place] | [place] [address] | | | | | [address] | [phone] | | | | | [phone] | | | +--------+ + + + [...] as a collagen plugis used on the soperton triny site to close the site, you [...] by your healthcare provider Date Last Reviewed: 09/22/201619998139-9366 [employer]. [address] [place] [address]. All righ ts reserved. This information is [...] + + + +---------+ + + | [place]-3 Fatty | CAPS, one capsule by [...] W | | | | | | [place], | | | | | | [place] [address] | | | | | | [phone] | | | | | | | | +--------+ + + + + | 11/20/ | Implant | Cardiology | Daljit Singletary, | Remote Device | | 2018 | Monitor | | MD [facility] | Interrogation | | | | | [place], | (Primary Dx); | | | | | [place] [address] | Presence of | | | | | [phone] | permanent cardiac | | | | [...] (1960) MEDICAL RECORD NUMBER: | | | [id number] OF PROCEDURE: 01/25/2019 ROUNDING MACHINE TENDER: Daljit | | | MD Gemini PROCEDURES [...] Sanchez, (1960) | | OF PROCEDURE: 01/25/2019PRIMARY CRAFT RECRUITER: Daljit Singletary MD PROCEDURES | | PERFORMED:Coronary [...] | Aggressive medical management. | | at 9:33[facility] C[facility] PROVIDER:Kirk French MDFor additional detail as [...]
--- OUTSIDE RECORDS SUMMARY | ~2019-11-01 | XMS | Encounter Summary ---
Demographics + + + | Address | [address] | | | [place] [address] | + + + | Home Phone [...] Organization | [facility] | | | and [place] | + [...] Team Providers + +------+ + | Care Spring Former Hand Name | Role | Phone | + +------+ + | Kirk French MD | PCP | | + +------+ + Encounter Details +--------+ + + + + | Date | Type | Department | Care Team | Description | +--------+ + + + + | 12/24/ | Anesthesia | [facility] | Jarett Barakat | | | 2018 | Event | MED CTR MP INTRA OP | P, MD [address] | | | | | [address] | [address] [place], [place] | | | | | [place], [place] | [address] | | | | | [address] | [phone] | | | | | [phone] | | | | | | | Arthur Wesley, | | | | | | [address] | | | | | | [place], [place] | | | | | | [address] | | | | | | | [...] 12/24/17 1435 by | | eral | [id number] catheter system; | Desmond Teresa RN | [...] W | | | | | | [place], | | | | | | [place] [address] | | | | | | [phone] | | | | | | | | +--------+ + + + + | 11/20/ | Implant | Cardiology | Daljit Singletary, | Remote Device | | 2018 | Monitor | | [facility] | Interrogation | | | | | [place], | (Primary Dx); | | | | | [place] [address] | Presence of | | | | | [phone] | permanent cardiac | | | | [...]
--- OUTSIDE RECORDS SUMMARY | ~2019-11-01 | XMS | Encounter Summary ---
Demographics + + + | Address | [address] | | | [place] [address] | + + + | Home Phone [...] Team Providers + +------+ + | Care Enlisted Aircrew/Aerial Observer/Gunner Name | Role | Phone | + [...] | CARDIOLOGY [address] | MD [address] [place] [address] [place] | | | | | [place], | [place], | | | | | [place] [address] | [place] [address] | | | | | [phone] | [phone] | | | | | | | [...] | | | | | | [place] [address] | | | | | | [phone] | | | | | | | | +--------+ + + + + | 11/20/ | Implant | Cardiology | Daljit Singletary, | Remote Device | | 2018 | Monitor | | [address] [facility] | Interrogation | | | | | [place], | (Primary Dx); | | | | | [place] [address] | Presence of | | | | | [phone] | permanent cardiac | | | | [...]
--- OUTSIDE RECORDS SUMMARY | ~2019-11-01 | XMS | Encounter Summary ---
Demographics + + + | Address | [address] | | | [place] [address] | + + + | Home Phone [...] Providers + +------+ + | Care Manager Editorial Name | Role | Phone | + [...] | RN | | | | | [place], | | | | | | [place] [address] | | | | | | [phone] | | | +--------+ + + + [...] | | | | | | [place] [address] | | | | | | [phone] | | | | | | | | +--------+ + + + + | 11/20/ | Implant | Cardiology | Daljit Singletary, | Remote Device | | 2019 | Monitor | | [facility] | Interrogation | | | | | [address] [place], | (Primary Dx); | | | | | [place] [address] | Presence of | | | | | [phone] | permanent cardiac | | | | [...]
--- OUTSIDE RECORDS SUMMARY | ~2019-11-01 | XMS | Encounter Summary ---
Demographics + + + | Address | [address] | | | [place] [address] | + + + | Home Phone [...] Team Providers + +------+ + | Care Bisque Ware Dipper Name | Role | Phone | + [...] | | | | aortic | Janeen, EXTENSION SUPERVISOR | [place], | | | | | aneurysm | [address] | [place] [address] | | | | | (HCC) | [place] | Phone: | | | | | Abdominal | [place], | [phone] | | | | | aortic | [place] | Fax: | | | | | aneurysm | [address] | [phone] | | | | | (AAA) | Phone: | | | | | | without | [phone] | | | | | | rupture | Fax: | | | | | | (HCC) | [phone] | | | | | | Procedures [...] | | unspecified | MD Martell | [address] [place] [address] | | | | | type ER | [address] | [address] | | | | | FUP | [place] | [place], | | | | | Procedures | [place], [place] | [place] [address] | | | | | FUP - SUW & | [address] | Phone: | | | | | MISHA PT, LAST | Phone: | [phone] | | | | | SEEN | [phone] | Fax: | | | | | 08-24-18 | Fax: | [phone] | | | | | | [phone] | | +--------+ + + + + + Encounter Details +--------+---------+ + + + | Date | Type | Department | Care Team | Description | +--------+---------+ + + + | 01/11/ | [facility] | [facility] | [place], | Coronary artery | | 2019 | Visit | CARDIOLOGY [address] | PARISA [place] [address] | disease involving | | | | [place], | [place], | [place] coronary | | | | [place] [address] | [place] [address] | artery of [place] | | | | [phone] | [phone] | heart without angina | | | [...] encounter Patient Instructions Patient Instructions Christine Rodriguez, Motors Assembler - 01/11/2019 12:45 PM PST 1. You [...] Check-in time: 1. Check in at the [facility]. 2. Do not [...] procedure. 6. Make sure you have a trailer truck driver to take you home. Your trailer truck driver will also need to sign you [...] hospital line at and ask for nursing roofing plant supervisor t o let them know you are cancelling . Blood test: Non-fasting Date Due: same day as CTA Where to go for labs: [facility] CTA of Chest and Abdomen: Date: [...] of non-critical coronary artery d isease involving [place] coronary artery of [place] heart without angina pectoris, essential h ypertension, [...] Preventative health care Coronary artery disease involving [place] coronary artery of [place] heart without angina pectoris Cannabis abuse, daily [...] 3RD DOSE, CALL 911 100 tablet 3 [place]-3 Fatty Acids (SALMON OIL-1000 PO) CAPS, one capsule by mouth daily twice daily ondansetron (ZOFRAN ODT) 4 mg disintegrating tablet Take 4 mg by mouth. ONE T[facility]CH [facility] Check glucose as needed [...] was found Confirmed by ANGELA MARADIAGA MD ([id number]) on 01/03/2019 8:10:39 PM LAB RESULTS reviewed during visit today primarily from [facility]: LIPID Lab Results Component Value Date TRIG [...] the HPI. RESULTS- I reviewed reports from [facility]: Xr Chest Ap Portable Result Date: 01/02/2019 [...] ASSESSMENT: 1. Non-critical Coronary artery disease involving [place] coronary artery of [place] heart wi out angina pectoris: A. Normal [...] Symptoms with moderate exertion of t he [place] 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 Heart failure stage [...] ventricular arrhythmia performed by Dr. Gambino at [facility] on 01/30/2013. Patient had spontaneous PVC's from [...] go back in 3 days t o [place] for an attempt of ablation under [...] he has any further problems Christine Clemente Motors Assembler am acting as a scribe on behalf of, and in the pres ence of PARISA Lomas. - Reji Newman 01/11/2019 13:46 IJaneen ARNP, personally performed the services described in this documentati on, as scribed in my presence and it is both accurate and complete. -PARISA Lomas 01/11/2019 Portions of this chart may have been created with [employer] voice recognition software. Occasi onal wrong-word or [...] [place], | | | | | | [place] [address] | | | | | | [phone] | | | | | | | | +--------+ + + + + | 11/20/ | Implant | Cardiology | Daljit Singletary, | Remote Device | 2018 | Monitor | | [facility] | Interrogation | | | | | [facility], | (Primary Dx); | | | | | [place] [address] | Presence of | | | | | [phone] | permanent cardiac | | | | [...] + + | Coronary artery disease involving [place] coronary artery of [place] heart without | | angina pectoris - [...]
--- OUTSIDE RECORDS SUMMARY | ~2019-11-01 | XMS | Encounter Summary ---
Demographics + + + | Address | [address] [place] [address] | | | [place] [address] | + + + | Home Phone [...] + + + | Author | [facility] | + + + | Organization | [facility] | + + + | Address | Unknown | + + + | Phone | Unavailable | + + + Support + + + + + | Name | Relationship | Address | Phone | + + + + + | Rachel Valencia | ELIEZER | [place] | | | | | [address] | | + + + + + Care Team Providers + +------+ + | Care Intelligent Systems Engineer Name | Role | Phone | [...] | | | | | Unintentiona | [place], [place] | | | | | | l weight | [address] | | | | | | loss | Phone: | | | | | | Procedures | [phone] | | | | | | CONSULT TO | Fax: | | | | | | NON - IVETTE | [phone] | | | | | | PROVIDER [...] | | 2019 | | Center at [facility] [address] | MD [address] | normal, recommend | | | | [address] | [place], [place] | hyoscyamine) | | | | Mailcode: [place] | [address] | | | | | for Health and | [phone] | | | | | [facility], [facility] 2 | | | | | | [place], [place] | | | | | | [address] | | | | | | [phone] | | | +--------+ + + + [...]
--- OUTSIDE RECORDS SUMMARY | ~2019-11-01 | XMS | Encounter Summary ---
Demographics + + + | Address | [address] | | | [place] [address] | + + + | Home Phone [...] Team Providers + +------+ + | Care Coke Production Heater Name | Role | Phone | + [...] | CARDIOLOGY [address] | [address] | Interrogation | | | | [place], | [place], | (Primary Dx); | | | | [place] [address] | [place] [address] | Presence of | | | | [phone] | [phone] | permanent cardiac | | | | [...] | | 2019 | Visit | | [address] | | | | | | [place], | | | | | | [place] [address] | | | | | | [phone] | | | | | | | | +--------+ + + + + | 11/20/ | Implant | Cardiology | Daljit Singletary, | Remote Device | | 2019 | Monitor | | [address] | Interrogation | | | | | [place], | (Primary Dx); | | | | | [place] [address] | Presence of | | | | | [phone] | permanent cardiac | | | | [...] remote PDF scanned into | | | [employer] for remote interrogation results. Data collected by [...]
--- OUTSIDE RECORDS SUMMARY | ~2019-11-01 | XMS | Encounter Summary ---
Demographics + + + | Address | [address] | | | [place] [address] | + + + | Home Phone [...] Providers + +------+ + | Care Furniture Restorer Name | Role | Phone | + +------+ + PCP | Unavailable | + +------+ + Encounter Details +--------+ + + + + | Date | Type | Department | Care Team | Description | +--------+ + + + + | 06/17/ | Hospital | [facility] | | | | 2007 | Encounter | MED CTR EMERGENCY | | | | | | [place] [address] | | | | | | [place] | | | | | | [address] | | | | | | [phone] | | | +--------+ + + + [...] | | | | | | [place] [address] | | | | | | [phone] | | | | | | | | +--------+ + + + + | 11/20/ | Implant | Cardiology | Daljit Singletary, | Remote Device | | 2018 | Monitor | | [facility] | Interrogation | | | | | [place], | (Primary Dx); | | | | | [place] [address] | Presence of | | | | | [phone] | permanent cardiac | | | | [...]
--- OUTSIDE RECORDS SUMMARY | ~2019-11-01 | XMS | Encounter Summary ---
Demographics + + + | Address | [address] | | | [place] [address] | + + + | Home Phone [...] Team Providers + +------+ + | Care Instructor Physical Name | Role | Phone | + [...] | | PVCs | [place] | [address] | | | | | Procedures | [address] | [address] | | | | | MT OFFICE | [place] | [place] | | | | | CONSULTATION | [place], | [address] Phone: | | | | | NEW/ESTAB | [place] | [phone] | | | | | PATIENT 40 | [address] | Fax: | | | | | MIN | Phone: | [phone] | | | | | | [phone] | | | | | | | Fax: | | | | | | | [phone] | | +--------+--------+ + + + + Encounter Details +--------+---------+ + + + | Date | Type | Department | Care Team | Description | +--------+---------+ + + + | 11/30/ | Office | [facility] | Jay Gambino MD | Symptomatic PVCs | | 2015 | Visit | [place]IOLOGY [place] | [address] | (Primary Dx) | | | | HI[address] | [address] [place], | | | | | [facility] [address] [place] | [place] [address] | | | | | [address] | [phone] | | | | | [phone] | | | +--------+---------+ + + + [...] Gambino MD - 11/30/2014 5:37 PM PST [facility] [address] [place] [address] Patient Name: Moe Sanchez Date: 1960 Date [...] luz marcos as needed for Chest pain. [place]-3 Fatty Acids (SALMON OIL-1000 PO) CAPS, one [...] (1980 1984); Hypoglycemia; Drug addiction in remission ([facility]); HTN (hypertension); Hypercholesterolemia; Bipolar 1 [...] were not detected in the editing p [facility] [place] [facility] [place]. Should you have any questions or concerns, [...] | | | | | | [place], | | | | | | [place] [address] | | | | | | [phone] | | | | | | | | +--------+ + + + + | 11/20/ | Implant | Cardiology | Daljit Singletary, | Remote Device | | 2018 | Monitor | | MD [address] [place] [address] | Interrogation | | | | | [place], | (Primary Dx); | | | | | [place] [address] | Presence of | | | | | [phone] | permanent cardiac | | | | [...] Transcriptions | + + | LorieRanda - 11/30/2014 12:00 AM PST | + + documented in this encounter Visit Diagnoses + + | Diagnosis | + + | Symptomatic PVCs - Primary Other premature beats | + + documented in this encounter
--- OUTSIDE RECORDS SUMMARY | ~2019-11-01 | XMS | Encounter Summary ---
Demographics + + + | Address | [address] | | | [place] [address] | + + + | Home Phone [...] Team Providers + +------+ + | Care Venetian Blind Machine Operator Name | Role | Phone | + +------+ + PCP | Unavailable | + +------+ + Encounter Details +--------+ + + + + | Date | Type | Department | Care Team | Description | +--------+ + + + + | 06/12/ | [facility] | [facility] | Hunter Antunez, | | | 2007 - | Encounter | MED CTR ICU [address] | MD [address] | | | | | [place], | [place] | | | 06/15/ | | [place] [address] | [address] | | | 2007 | | [phone] | | | +--------+ + + + [...] | | | | | | [place] [address] | | | | | | [phone] | | | | | | | | +--------+ + + + + | 11/20/ | Implant | Cardiology | Daljit Singletary, | Remote Device | | 2019 | Monitor | | MD [address] | Interrogation | | | | | [place], | (Primary Dx); | | | | | [place] [address] | Presence of | | | | | [phone] | permanent cardiac | | | | [...]
--- OUTSIDE RECORDS SUMMARY | ~2019-11-01 | XMS | Encounter Summary ---
Demographics + + + | Address | [address] | | | [place] [address] | + + + | Home Phone [...] Team Providers + +------+ + | Care Mine Engineering Supervisor Name | Role | Phone | + +------+ + PCP | Unavailable | + +------+ + Encounter Details +--------+ + + + + | Date | Type | Department | Care Team | Description | +--------+ + + + + | 03/08/ | [facility] | [facility] | Emmanuel Daniel MD | | | 2006 | Encounter | MED CTR GENERIC OP | [address] | | | | | CONV DEPT [address] | [address] [place] | | | | | [place], | [address] | | | | | [place] [address] | | | | | | [phone] | | | +--------+ + + + [...] W | | | | | | [place], | | | | | | [place] [address] | | | | | | [phone] | | | | | | | | +--------+ + + + + | 11/20/ | Implant | Cardiology | Daljit Singletary, | Remote Device | | 2019 | Monitor | | MD [address] [address] | Interrogation | | | | | [facility] [place], | (Primary Dx); | | | | | [place] [address] | Presence of | | | | | [phone] | permanent cardiac | | | | [...]
--- OUTSIDE RECORDS SUMMARY | ~2019-11-01 | XMS | Encounter Summary ---
Demographics + + + | Address | [address] | | | [place] [address] | + + + | Home Phone [...] Providers + +------+ + | Care Associate Professor Of Medicine Name | Role | Phone | + +------+ + PCP | Unavailable | + +------+ + Encounter Details +--------+ + + + + | Date | Type | Department | Care Team | Description | +--------+ + + + + | 01/20/ | [facility] | [facility] | Geri Angel, | | | 2009 | Encounter | MED CTR GENERIC OP | LOSS CONTROL ENGINEER [address] [place] | | | | | CONV DEPT [address] | [address] [place] | | | | | [place], | [id number] | | | | | [place] [address] | | | | | | [phone] | | | +--------+ + + + [...] W | | | | | | [place], | | | | | | [place] [address] | | | | | | [phone] | | | | | | | | +--------+ + + + + | 11/20/ | Implant | Cardiology | Daljit Singletary, | Remote Device | | 2019 | Monitor | | MD [address]ro | Interrogation | | | | | [facility], | (Primary Dx); | | | | | [place] [address] | Presence of | | | | | [phone] | permanent cardiac | | | | [...]
--- OUTSIDE RECORDS SUMMARY | ~2019-11-01 | XMS | Encounter Summary ---
Demographics + + + | Address | [address] | | | [place] [address] | + + + | Home Phone [...] Providers + +------+ + | Care Storeroom Supervisor Name | Role | Phone | [...] + + | 02/15/ | Office | [facility] | Jay Cohn PA | DIDIER (obstructive | | 2012 | Visit | SLEEP DISORDER [address] | [address] | sleep apnea) | | | | [address] | [place] | (Primary Dx) | | | | [place] [address] | [address] | | | | | [phone] | | | +--------+---------+ + + + [...] AM PDTGo to [facility] for replacement equipment including: Nasal [...] pillows obtained from: [facility] [place] pressure is: 13 cm CPAP download shows [...] to go to [facility] [place] to replace his equipment, but it had [...] to go to [facility] [place] to g et a new mask and filter. He is to work toward wearing his CPAP 100% of the time he is asle ep. I will follow up again in 1 month, sooner prn. Fifteen minutes were spent [id number], wi th the majority of time spent [...] W | | | | | | [place], | | | | | | [place] [address] | | | | | | [phone] | | | | | | | | +--------+ + + + + | 11/20/ | Implant | Cardiology | Daljit Singletary, | Remote Device | | 2019 | Monitor | | [address] | Interrogation | | | | | [place], | (Primary Dx); | | | | | [place] [address] | Presence of | | | | | [phone] | permanent cardiac | | | | [...]
--- OUTSIDE RECORDS SUMMARY | ~2019-11-01 | XMS | Encounter Summary ---
Demographics + + + | Address | [address] | | | [place] [address] | + + + | Home Phone [...] Team Providers + +------+ + | Care Psych Sales Specialist Name | Role | Phone | [...] [address] | | | | | | [place], [place] | (Fax) | | | | | [address] | | | | | | [phone] | | | +--------+ + + + [...] | | | | | | [place] [address] | | | | | | [phone] | | | | | | | | +--------+ + + + + | 11/20/ | Implant | Cardiology | Daljit Singletary, | Remote Device | | 2018 | Monitor | | [facility] | Interrogation | | | | | [place], | (Primary Dx); | | | | | [place] [address] | Presence of | | | | | [phone] | permanent cardiac | | | | [...]
--- OUTSIDE RECORDS SUMMARY | ~2019-11-01 | XMS | Encounter Summary ---
Demographics + + + | Address | [address] | | | [place] [address] | + + + | Home Phone [...] Providers + +------+ + | Care Quality Systems Specialist Name | Role | Phone | + +------+ + PCP | Unavailable | + +------+ + Encounter Details +--------+ + + + + | Date | Type | Department | Care Team | Description | +--------+ + + + + | 10/13/ | Hospital | [facility] | | | | 2007 | Encounter | MED CTR EMERGENCY | | | | | | [place] [address] | | | | | | [place] | | | | | | [address] | | | | | | [phone] | | | +--------+ + + + [...] | | | | | | [place] [address] | | | | | | [phone] | | | | | | | | +--------+ + + + + | 11/20/ | Implant | Cardiology | Daljit Singletary, | Remote Device | | 2018 | Monitor | | [facility] | Interrogation | | | | | [place], | (Primary Dx); | | | | | [place] [address] | Presence of | | | | | [phone] | permanent cardiac | | | | [...]
--- OUTSIDE RECORDS SUMMARY | ~2019-11-01 | XMS | Encounter Summary ---
Demographics + + + | Address | [address] | | | [place] [address] | + + + | Home Phone [...] Providers + +------+ + | Care Loan Processing Supervisor Name | Role | Phone | + +------+ + | Michael Amanda DO | PCP | | + +------+ + Encounter Details +--------+ + + + + | Date | Type | Department | Care Team | Description | +--------+ + + + + | 05/11/ | Hospital | [facility] | Conversion | Lumbago; | | 2013 | Encounter | MEDICAL CENTER XRAY | Transaction, | Postlaminectomy | | | | [address] | Provider Unknown | syndrome, cervical | | | | [place], [place] | | region; Cervicalgia | | | | [address] | (Fax) | | | | | [phone] | | | +--------+ + + + [...] + + + +---------+ + + | [place]-3 Fatty | CAPS, one capsule by | [...] 1147 Date of Service: 05/11/141145 Status: Signed Area Development Consultant: Christine Mcgraw Report called to Brittany morejon [...] W | | | | | | [place], | | | | | | [place] [address] | | | | | | [phone] | | | | | | | | +--------+ + + + + | 11/20/ | Implant | Cardiology | Daljit Singletary, | Remote Device | | 2018 | Monitor | | [address] [place] | Interrogation | | | | | [place], | (Primary Dx); | | | | | [place] [address] | Presence of | | | | | [phone] | permanent cardiac | | | | [...]
--- OUTSIDE RECORDS SUMMARY | ~2019-11-01 | XMS | Encounter Summary ---
Demographics + + + | Address | [address] [place] [address] | | | [place] [address] | + + + | Home Phone | | + + + | Preferred Language | Unknown | + + + | Marital Status | | + + + | Spiritism Affiliation | Unknown | + + + [...] [place] | | | | | [address] | | + + + + + Care Team Providers + +------+ + | Care Automotive Teacher Name | Role | Phone | [...] | | | | | Unintentiona | [place], [place] | | | | | | l weight | [address] | | | | | | loss | Phone: | | | | | | Procedures | [phone] | | | | | | CONSULT TO | Fax: | | | | | | NON - IVETTE | [phone] | | | | | | PROVIDER [...] 2019 | | Center at [facility] [address] | MD [address] | normal, recommend | | | | [address] | [place], [place] | hyoscyamine) | | | | Mailcode: [place] | [address] | | | | | for Health and | [phone] | | | | | [facility], [facility] [place] 2 | | | | | | [place], [place] | | | | | | [address] | | | | | | [phone] | | | +--------+ + + + [...]
--- OUTSIDE RECORDS SUMMARY | ~2019-11-01 | XMS | Encounter Summary ---
Demographics + + + | Address | [address] | | | [place] [address] | + + + | Home Phone [...] Team Providers + +------+ + | Care Fruit Packer Face And Fill Name | Role | Phone | + +------+ + | Kirk French MD | PCP | | + +------+ + Encounter Details +--------+ + + + + | Date | Type | Department | Care Team | Description | +--------+ + + + + | 01/07/ | Hospital | [facility] | Conversion | | | 2017 | Encounter | [facility] | Transaction, | | | | | ULTRASOUND [address] | Provider Unknown | | | | | [address] [facility] [address] | [phone] | | | | | [place] | | | | | | [address] | Kirk French | | | | | [phone] | MD Eva Guidry | | | | | | [address] [place], | | | | | | [place] [address] | | | | | | [phone] | | | | | | | [...] + + + +---------+ + + | [place]-3 Fatty | CAPS, one capsule by | [...] | | | | | | [place] [address] | | | | | | [phone] | | | | | | | | +--------+ + + + + | 11/20/ | Implant | Cardiology | Daljit Singletary, | Remote Device | | 2018 | Monitor | | [address] [facility] | Interrogation | | | | | [address] [place], | (Primary Dx); | | | | | [place] [address] | Presence of | | | | | [phone] | permanent cardiac | | | | [...]
--- OUTSIDE RECORDS SUMMARY | ~2019-11-01 | XMS | Encounter Summary ---
Demographics + + + | Address | [address] | | | [place] [address] | + + + | Home Phone [...] Team Providers + +------+ + | Care Supplier Relationship Director Name | Role | Phone | [...] | 01/05/ | Telephone | [facility] | Emmanuel Daniel MD | Other | | 2019 | | GASTROENTEROLOGY | [address], [place] | | | | | [address] [place] | [address] [place], [place] | | | | | [address] [place], [place] | [address] | | | | | [address] | | | | | | [phone] | | | +--------+ + + + [...] | 11/09/ | Office | Cardiology | iSlvia, | | | 2018 | Visit | | [address] | | | | | | [place], | | | | | | [place] [address] | | | | | | [phone] | | | | | | | | +--------+ + + + + | 11/20/ | Implant | Cardiology | Daljit Singletary, | Remote Device | | 2018 | Monitor | | MD [address] | Interrogation | | | | | [address] [place], | (Primary Dx); | | | | | [place] [address] | Presence of | | | | | [phone] | permanent cardiac | | | | [...]
--- OUTSIDE RECORDS SUMMARY | ~2019-11-01 | XMS | Encounter Summary ---
Demographics + + + | Address | [address] | | | [place] [address] | + + + | Home Phone [...] Team Providers + +------+ + | Care Apprentice Plant Attendant Name | Role | Phone [...] | 02/15/ | Office | [facility] | [place], | Symptomatic PVCs | | 2012 | Visit | CARDIOLOGY [address] | [address] | (Primary Dx); | | | | [place], | [place], | Bradycardia; HTN | | | | [place] [address] | [place] [address] | (hypertension) | | | | [phone] | [phone] | | | | | | | [...] at which time patient was going to [place] for waste specialist co nsult and PVC ablation. Since [...] tablet Take 1,000 mg by mouth Daily. [place]-3 Fatty Acids (SALMON OIL-1000 PO) CAPS, one [...] performed by Dr. Gambino at [facility] on 01/30/2013. Patient had spontaneous PVCs [...] He is in a class II of [place] 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 There is no [...] been encouraged to keep his appointment with waste specialist this coming y to attempt ablation therapy. 4. Follow up appointment in 4-6 weeks. I, PARISA Russell, saw this patient under the direct supervision of Daljit Singletary MD Portions of this report were transcribed using voice recognition software. Every effort wa s made to ensure accuracy; however, inadvertent computerized ore bridge operator errors may be pre sent. documented in this encounter Plan of Treatment +--------+ + + + + | Date | Type | Specialty | Care Team | Description | +--------+ + + + + | 11/09/ | Office | Cardiology | [place], | | | 2019 | Visit | | APRISA [address] | | | | | | [place], | | | | | | [place] [address] | | | | | | [phone] | | | | | | | | +--------+ + + + + | 11/20/ | Implant | Cardiology | Daljit Singletary, | Remote Device | | 2019 | Monitor | | [address] [facility] | Interrogation | | | | | [place] [place], | (Primary Dx); | | | | | [place] [address] | Presence of | | | | | [phone] | permanent cardiac | | | | [...]
--- OUTSIDE RECORDS SUMMARY | ~2019-11-01 | XMS | Encounter Summary ---
Demographics + + + | Address | [address] | | | [place] [address] | + + + | Home Phone [...] Providers + +------+ + | Care Foundation Coordinator Name | Role | Phone | + +------+ + PCP | Unavailable | + +------+ + Encounter Details +--------+ + + + + | Date | Type | Department | Care Team | Description | +--------+ + + + + | 04/22/ | Hospital | [facility] | | | | 2011 | Encounter | MED CTR XRAY [address] | | | | | | [place] | | | | | | [place] [address] | | | | | | [phone] | | | +--------+ + + + [...] + + + +---------+ + + | [place]-3 Fatty | CAPS, one capsule by | [...] | | | | | | [place] [address] | | | | | | [phone] | | | | | | | | +--------+ + + + + | 11/20/ | Implant | Cardiology | Daljit Singletary, | Remote Device | | 2018 | Monitor | | MD [address] | Interrogation | | | | | [place], | (Primary Dx); | | | | | [place] [address] | Presence of | | | | | [phone] | permanent cardiac | | | | [...] Performed At | + + + | [facility] Diagnostic Imaging Department | [facility] | | [address] [facility] | [facility] | | CT MYELOGRAM LUMBAR SPINE, | [...] Transcribed Date/Time: | | | 04/23/2012 11:06 Oil Pit Attendant: <Electronically Signed | | | by Jama Solis MD> 04/24/12 0730 | | + + + + + | Procedure Note | + + | Kevin, Rad Conversion - 12/29/2013 5:27 PM [facility] | | Diagnostic Imaging Department [address] [place] [address] | | CT MYELOGRAM LUMBAR SPINE, 04/22/2012 [...] <Electronically Signed by Jama Solis MD> 04/24/12 1430 | | | |L3-4: Minimal broad-based disk [...] 10:54 | |Transcribed Date/Time: 04/23/2012 11:06 | |Oil Pit Attendant: | |<Electronically Signed by Jama Solis MD> 04/24/12 6930 | + + + +---------+ + + | Performing | Address | City/State/Zipcode | Phone Number | | Organization | | | | + +---------+ + + | [place] | | | | | [facility] | | | | + +---------+ + + CT Thoracic Spine w Contrast (04/22/2012 1:12 PM PDT) + + | Specimen | + + | | + + + + + | Narrative | Performed At | + + + | [facility] Diagnostic Imaging Department | [facility] | | [address] [facility] | [facility] | | THORACIC CT MYELOGRAM | DIAG [...] Transcribed Date/Time: 04/22/2012 17:32 | | | Oil Pit Attendant: <Electronically Signed by Jama Mason | | | MD Will> 04/23/12 1039 | | + + + + + | Procedure Note | + + | Kalpesh Brown Conversion - 12/29/2013 5:27 PM [facility] | | Diagnostic Imaging Department [address] [place] [address] | | THORACIC CT MYELOGRAM CLINICAL HISTORY: [...] 16:56 | |Transcribed Date/Time: 04/22/2012 17:32 | |Oil Pit Attendant: | |<Electronically Signed by Jama Solis MD> [...] Performed At | + + + | [facility] Diagnostic Imaging Department | [facility] | | [address] [facility] | [facility] | | CT MYELOGRAM CERVICAL SPINE | [...] Similar study from | | | 09/02/2009, [facility]. FINDINGS: Firm bony ankylosis | [...] Transcribed Date/Time: | | | 04/22/2012 17:25 Oil Pit Attendant: <Electronically Signed | | | by Jama Solis MD> 04/23/12 1039 | | + + + + + | Procedure Note | + + | Kalpesh Brown Conversion - 12/29/2013 5:27 PM [facility] | | Diagnostic Imaging Department | | [address] [facility] | | | | | | | [...] | | COMPARISON: Similar study from 09/02/2009, [facility]. | | | | FINDINGS: [...] | Transcribed Date/Time: 04/22/2012 17:25 | | Oil Pit Attendant: | | <Electronically Signed by Jama Solis [...] Performed At | + + + | [facility] Diagnostic Imaging Department | [facility] | | [address] [facility] | [facility] | | LUMBAR MYELOGRAM INJECTION FOR CT [...] Transcribed Date/Time: 04/22/2012 16:36 | | | Oil Pit Attendant: <Electronically Signed by Jama Mason | | | MD Will> 04/23/12 1039 | | + + + + + | Procedure Note | + + | Kalpesh Brown Conversion - 12/29/2013 5:27 PM [facility] | | Diagnostic Imaging Department [address] [place] [address] | | LUMBAR MYELOGRAM INJECTION FOR CT [...] 15:51 | |Transcribed Date/Time: 04/22/2012 16:36 | |Oil Pit Attendant: | |<Electronically Signed by Jama Solis MD> [...]
--- OUTSIDE RECORDS SUMMARY | ~2019-11-01 | XMS | Encounter Summary ---
Demographics + + + | Address | [address] [place] [address] | | | [place] [address] | + + + | Home Phone | | + + + | Preferred Language | Unknown | + + + | Marital Status | | + + + | Holiness Affiliation | Unknown | + + + | Race | White | + + + | Ethnic Group | Not or | + + + Author + + + | Author | [facility] | + + + | Organization | [facility] | + + + | Address | Unknown | + + + | Phone | Unavailable | + + + Support + + + + + | Name | Relationship | Address | Phone | + + + + + | Rachel Valencia | ELIE[place]ER | [place] | | | | | [address] | | + + + + + Care Team Providers + +------+ + | Care Firefighting Equipment Specialist Name | Role | Phone | [...] | | | | | TRANSTHORACI | [place], [place] | for Health | | | | | C | [address] | and Healing, | | | | | ECHOCARDIOGR | Phone: | Building [address] | | | | | AM, ADULT | [phone] | [place], [place] | | | | | | Fax: | [address] | | | | | | [phone] | Phone: | | | | | | | [phone] | +--------+--------+ + + + + Encounter Details +--------+ + + + + | Date | Type | Department | Care Team | Description | +--------+ + + + + | 02/03/ | Hospital | Cardiac | | | | 2010 | Encounter | Non-Invasive Testing | | | | | | at [facility] [address] | | | | | | [address] Mailcode: | | | | | | [facility] | | | | | | Health and Healing, | | | | | | [address] | | | | | | [place], [place] | | | | | | [address] | | | | | | [phone] | | | +--------+ + + + [...]
--- OUTSIDE RECORDS SUMMARY | ~2019-11-01 | XMS | Encounter Summary ---
Demographics + + + | Address | [address] | | | [place] [address] | + + + | Home Phone [...] Team Providers + +------+ + | Care Unit Aide Tech Name | Role | Phone | [...] + + | 02/01/ | Telephone | [facility] | [place], | Other (unable to | | 2013 | | CARDIOLOGY [address] | [address] | take the isosorbide) | | | | [place], | [place], | | | | | [place] [address] | [place] [address] | | | | | [phone] | [phone] | | | | | | | [...] W | | | | | | [place], | | | | | | [place] [address] | | | | | | [phone] | | | | | | | | +--------+ + + + + | 11/20/ | Implant | Cardiology | Daljit Singletary, | Remote Device | | 2018 | Monitor | | [address] | Interrogation | | | | | [place], | (Primary Dx); | | | | | [place] [address] | Presence of | | | | | [phone] | permanent cardiac | | | | [...] of unspecified type of | | vessel, chippewa-cree or graft | + + | Hypertension Unspecified essential hypertension | + + | Hyperlipidemia Other and unspecified hyperlipidemia | + + documented in this encounter"
--- OUTSIDE RECORDS SUMMARY | ~2019-11-01 | XMS | Encounter Summary ---
Demographics + + + | Address | [address] [place] [address] | | | [place] [address] | + + + | Home Phone | | + + + | Preferred Language | Unknown | + + + | Marital Status | | + + + | Moravian Affiliation | Unknown | + + + [...] + + + | Rachel Valencia | [place] | [place] | | | | | [address] | | + + + + + Care Team Providers + +------+ + | Care Laborer [place] Name | Role | Phone | + +------+ + | Darion Holden DO | PCP | | + +------+ + Reason for Visit +--------+ + | Reason | Comments | +--------+ + | Other | | +--------+ + Encounter Details +--------+ + + + + | Date | Type | Department | Care Team | Description | +--------+ + + + + | 11/01/ | Telephone | [facility] | Bridgette Rios, | Other | | 2019 | | Center at [facility] [address] | MD [address] | | | | | [address] | [place], [place] | | | | | Mailcode: Center | [address] | | | | | [facility] and | [phone] | | | | | [facility] 2 | | | | | | [place], [place] | | | | | | [address] | | | | | | [phone] | | | +--------+ + + + [...]
--- OUTSIDE RECORDS SUMMARY | ~2019-11-01 | XMS | Encounter Summary ---
Demographics + + + | Address | [address] | | | [place] [address] | + + + | Home Phone [...] Team Providers + +------+ + | Care Php Engineer Name | Role | Phone | + +------+ + PCP | Unavailable | + +------+ + Encounter Details +--------+ + + + + | Date | Type | Department | Care Team | Description | +--------+ + + + + | 01/15/ | [facility] | [facility] | Emmanuel Daniel MD | | | 1994 | Encounter | MED CTR GENERIC OP | [address] | | | | | CONV DEPT [address] | [address] [place] | | | | | [place], | [address] | | | | | [place] [address] | | | | | | [phone] | | | +--------+ + + + [...] W | | | | | | [place], | | | | | | [place] [address] | | | | | | [phone] | | | | | | | | +--------+ + + + + | 11/20/ | Implant | Cardiology | Daljit Singletary, | Remote Device | | 2019 | Monitor | | MD [address] | Interrogation | | | | | [place], | (Primary Dx); | | | | | [place] [address] | Presence of | | | | | [phone] | permanent cardiac | | | | [...]
--- OUTSIDE RECORDS SUMMARY | ~2019-11-01 | XMS | Encounter Summary ---
Demographics + + + | Address | [address] | | | [place] [address] | + + + | Home Phone [...] Providers + +------+ + | Care Gear Technician Name | Role | Phone | [...] | Telephone | [facility] [place] | [place], | Other (not feeling | | 2013 | | [place] [address] | [place] [address] | k[place]all) | | | | [place], | [place], | | | | | [place] [address] | [place] [address] | | | | | [phone] | [phone] | | | | | | | [...] W | | | | | | [place], | | | | | | [place] [address] | | | | | | [phone] | | | | | | | | +--------+ + + + + | 11/20/ | Implant | Cardiology | Daljit Singletary, | Remote Device | | 2018 | Monitor | | [address] [facility] | Interrogation | | | | | [place], | (Primary Dx); | | | | | [place] [address] | Presence of | | | | | [phone] | permanent cardiac | | | | [...]
--- OUTSIDE RECORDS SUMMARY | ~2019-11-01 | XMS | Encounter Summary ---
Demographics + + + | Address | [address] | | | [place] [address] | + + + | Home Phone [...] Team Providers + +------+ + | Care Corset Maker Name | Role | Phone | [...] Provider Unknown | | | | | [place], [place] | [phone] | | | | | [address] | | | | | | [phone] | | | +--------+ + + + [...] + + + +---------+ + + | [place]-3 Fatty | CAPS, one capsule by | [...] | | | | | | [place] [address] | | | | | | [phone] | | | | | | | | +--------+ + + + + | 11/20/ | Implant | Cardiology | Daljit Singletary, | Remote Device | | 2018 | Monitor | | [address] [facility] [place] | Interrogation | | | | | [place], | (Primary Dx); | | | | | [place] [address] | Presence of | | | | | [phone] | permanent cardiac | | | | [...]
--- OUTSIDE RECORDS SUMMARY | ~2019-11-01 | XMS | Encounter Summary ---
Demographics + + + | Address | [address] | | | [place] [address] | + + + | Home Phone [...] Team Providers + +------+ + | Care Postpartum Rn Name | Role | Phone | [...] [place] | | | | | | [address] | | | | | | [phone] | | | +--------+ + + + [...] + + + +---------+ + + | [place]-3 Fatty | CAPS, one capsule by | [...] | | | | | | [place], | | | | | | [place] [address] | | | | | | [phone] | | | | | | | | +--------+ + + + + | 11/20/ | Implant | Cardiology | Daljit Singletary, | Remote Device | | 2018 | Monitor | | 401 [facility] | Interrogation | | | | | [place], | (Primary Dx); | | | | | [place] [address] | Presence of | | | | | [phone] | permanent cardiac | | | | [...]
--- OUTSIDE RECORDS SUMMARY | ~2019-11-01 | XMS | Encounter Summary ---
Demographics + + + | Address | [address] | | | [place] [address] | + + + | Home Phone [...] Providers + +------+ + | Care Warehouse Person Name | Role | Phone | [...] + + | 09/01/ | Office | [facility] | [place], | Ascending thoracic | | 2015 | Visit | CARDIOLOGY [address] | [place] [address] | aortic aneurysm | | | | [place], | [place], | ([facility]) (Primary Dx); | | | | [place] [address] | [place] [address] | Coronary artery | | | | [phone] | [phone] | disease involving | | | | | | jena coronary | | | | | | artery of jena | | | | | | heart [...] of non-critical coronary artery d isease involving jena coronary artery of jena heart without angina pectoris, essential h ypertension, [...] episode of chest pain while nelly ng [facility], so he took some sublingual nitroglycerin and [...] Preventative health care Coronary artery disease involving jena coronary artery of jena heart without angina pectoris Cannabis abuse, daily [...] by mouth every evening 90 tablet 3 [facility] Natural Products (OSTEO BI-FLEX/5-LOXIN [...] 3rd dose, call 911 100 tablet 3 [place]-3 Fatty Acids (SALMON OIL-1000 PO) CAPS, one capsule by mouth daily twice daily ONE TOUCH DELICA LANCETS [facility] Check glucose as needed [...] reviewed during visit today primarily from [facility]: LIPID Lab Results Component Value Date [...] 129* 05/12/2016 I reviewed records from [facility] for office visit [facility] ch is summarized in the HPI. 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 On physical examination there are no signs of fluid overload. The plan will be to lose weight, modify portion control, start exercising, limit sodium in take and we will start losartan 25 mg once a day with a close monitoring of blood pressure. 2. Non-critical Coronary artery disease involving jena coronary artery of jena heart [facility] angina pectoris: A. Normal exercise [...] to go back in 3 days to [place] for an attempt of ablation under general [...] this chart may have been created with VR1 voice recognition software. Occasi onal wrong-word or [...] | | 2018 | Visit | | P[place] [address] | | | | | | [place], | | | | | | [place] [address] | | | | | | [phone] | | | | | | | | +--------+ + + + + | 11/20/ | Implant | Cardiology | Daljit Singletary, | Remote Device | | 2019 | Monitor | | MD [address] [place] | Interrogation | | | | | [place], | (Primary Dx); | | | | | [place] [address] | Presence of | | | | | [phone] | permanent cardiac | | | | [...] + + | Coronary artery disease involving jena coronary artery of jena heart without | | angina pectoris | + + | Essential hypertension with goal blood pressure less than 130/80 | + + | Hyperlipidemia, mixed Mixed hyperlipidemia | + + documented in this encounter
--- OUTSIDE RECORDS SUMMARY | ~2019-11-01 | XMS | Encounter Summary ---
Demographics + + + | Address | [address] | | | [place] [address] | + + + | Home Phone [...] Team Providers + +------+ + | Care Film Developing Machine Operator Name | Role | Phone [...] [address] | | | | | [place], | [place], | | | | | [place] [address] | [place] [address] | | | | | [phone] | [phone] | | | | | | | [...] W | | | | | | [place], | | | | | | [place] [address] | | | | | | [phone] | | | | | | | | +--------+ + + + + | 11/20/ | Implant | Cardiology | Daljit Singletary, | Remote Device | | 2018 | Monitor | | [address] [place] | Interrogation | | | | | [place], | (Primary Dx); | | | | | [place] [address] | Presence of | | | | | [phone] | permanent cardiac | | | | [...] Agency Comment | + + | [facility] | + + + +---------+ + [...] Resulting Agency Comment | + + | [facility] | + + + +---------+ + + [...] Agency Comment | + + | [facility] | + + + +---------+ + [...] Resulting Agency Comment | + + | [facility] | + + + +---------+ + [...] Resulting Agency Comment | + + | [facility] | + + + +---------+ + + [...] Resulting Agency Comment | + + | [facility] | + + + +---------+ + + [...] Resulting Agency Comment | + + | [facility] | + + + +---------+ + + [...] Resulting Agency Comment | + + | [facility] | + + + +---------+ + [...] Resulting Agency Comment | + + | [facility] | + + + +---------+ + + [...] Resulting Agency Comment | + + | [facility] | + + + +---------+ + + [...] Agency Comment | + + | [facility] | + + + +---------+ + [...] Resulting Agency Comment | + + | [facility] | + + + +---------+ + + [...] Resulting Agency Comment | + + | [facility] | + + + +---------+ + [...] Resulting Agency Comment | + + | [facility] | + + + +---------+ + + [...] Resulting Agency Comment | + + | [facility] | + + + +---------+ + [...] Resulting Agency Comment | + + | [facility] | + + + +---------+ + + [...] Resulting Agency Comment | + + | [facility] | + + + +---------+ + + [...] Resulting Agency Comment | + + | [facility] | + + + +---------+ + [...] Resulting Agency Comment | + + | [facility] | + + + +---------+ + + [...]
--- OUTSIDE RECORDS SUMMARY | ~2019-11-01 | XMS | Encounter Summary ---
Demographics + + + | Address | [address] | | | [place] [address] | + + + | Home Phone [...] Providers + +------+ + | Care Chief Controller Tower Name | Role | Phone | + [...] + | 02/16/ | Telephone | [facility] | [place], | Other (concerned | | 2012 | | CARDIOLOGY [address] | [place] [address] | about palpitations) | | | | [place], | [place], | | | | | [place] [address] | [place] [address] | | | | | [phone] | [phone] | | | | | | | [...] W | | | | | | [place], | | | | | | [place] [address] | | | | | | [phone] | | | | | | | | +--------+ + + + + | 11/20/ | Implant | Cardiology | Daljit Singletary, | Remote Device | | 2018 | Monitor | | [facility] | Interrogation | | | | | [place], | (Primary Dx); | | | | | [place] [address] | Presence of | | | | | [phone] | permanent cardiac | | | | [...]
--- OUTSIDE RECORDS SUMMARY | ~2019-11-01 | XMS | Encounter Summary ---
Demographics + + + | Address | [address] | | | [place] [address] | + + + | Home Phone [...] Providers + +------+ + | Care Automobile Club Travel Counselor Name | Role | Phone | + +------+ + | Kirk French MD | PCP | | + +------+ + Encounter Details +--------+ + + + + | Date | Type | Department | Care Team | Description | +--------+ + + + + | 01/25/ | Emergency | [facility] | Donald Callahan, | Strain of lumbar | | 2016 | | [facility]ENTER | Russ, DO [address] | paraspinal muscle, | | | | EMERGENCY CENTER | [address] | initial encounter; | | | | [address] | [place], [place] | Left hip pain | | | | [place], [place] | [address] | | | | | [address] | | | | | | [phone] | | | +--------+ + + + [...] + + + | Blood Pressure | 147/105 | 01/25/2017 3:27 PM | | | | | PST | | + + + + + | Pulse | 75 | 01/25/2017 3:27 PM | | | | | PST | | + + + + + | Temperature | 36.5 C (97.7 F) | 01/25/2017 3:27 PM | | | | | PST | | + + + + + | Respiratory Rate | 16 | 01/25/2017 3:27 PM | | | | | PST | | + + + + + | Oxygen Saturation | - | - | | + + + + + | Inhaled Oxygen | - | - | | | Concentration | | | | + + + + + | Weight | 112.8 kg (248 lb | 01/25/2017 3:27 PM | | | | 10.9 oz) | PST | | + + + + + | Height | - | - | | + + + + + | Body Mass Index | 30.27 | 01/24/2017 12:20 PM | | | [...] + + + +---------+ + + | [place]-3 Fatty | CAPS, one capsule by | | 0 | 04/18/20 | | | Acids (SALMON | mouth daily twice | | | 12 | | | OIL-1000 PO) | daily | | | | | + + + +---------+ + + | ONE TOUCH DELICA | Check glucose as | 100 | 3 | // | | | LANCETS | needed for [...] | | | | | | [place] [address] | | | | | | [phone] | | | | | | | | +--------+ + + + + | 11/20/ | Implant | Cardiology | Daljit Singletary, | Remote Device | | 2019 | Monitor | | [place] [address] [facility] | Interrogation | | | | | [place], | (Primary Dx); | | | | | [place] [address] | Presence of | | | | | [phone] | permanent cardiac | | | | [...] + +--------+ + + + | XR HIP LEFT 2-3 | Routin | 01/25/2017 | | Results for this | | VIEWS | e | 2:48 PM | | procedure are in the | | | | PST | | results section. | + +--------+ + + + | XR LUMBAR SPINE 2 OR | Routin | 01/25/2017 | | Results for this | | 3 VW | e | 2:48 PM | | procedure are in the | | | | PST | | results section. | + +--------+ + + + documented in this encounter Results XR Hip Left 2-3 Views (01/25/2017 2:48 PM PST) + + | Specimen | + + | | + + + + + | Impressions | Performed At | + + + | 1. No acute fracture or dislocation. | | + + + + + + | Narrative | Performed At | + + + | [facility] 1960 XR HIP 2 VIEW LEFT 01/25/2017 2:48 PM | | | INDICATION: Trauma COMPARISON: None TECHNIQUE: Two views of | | | the left hip FINDINGS: The bone density is normal. There is mild | | | osteoarthritic spurring of the acetabulum. The femoral head is | | | situated in the acetabulum. There are no femoral head or neck | | | fractures. There are presumed vasectomy clips noted. | | + + + + + | Procedure Note | + + | Kevin, Rad Conversion - 07/06/2019 12:12 AM PDT [facility]1960XR HIP 2 VIEW | | LEFT01/25/2017 2:48 PM INDICATION: Trauma COMPARISON: None TECHNIQUE: Two views of the | | left hip FINDINGS: The bone density is normal. There is mild osteoarthritic spurring of | | the acetabulum. The femoral head is situated in the acetabulum. There are no femoral | | head or neck fractures. There are presumed vasectomy clips noted. IMPRESSION: 1. No | | acute fracture or dislocation. | | 3:10 PM | |COMPARISON: None | | | |TECHNIQUE: Two views of the left hip | | | |FINDINGS: The bone density is normal. There is mild osteoarthritic spurring of the acetabul um. The femoral head is situated in the acetabulum. There are no femoral head or neck fractu res. There are presumed vasectomy clips noted. | | | |IMPRESSION: | |1. No acute fracture or dislocation. | | | | | + + XR Lumbar Spine 2 or 3 Vw (01/25/2017 2:48 PM PST) + + | Specimen | + + | | + + + + + | Impressions | Performed At | + + + | 1. Unchanged appearance of lumbar fusion hardware at the level of | | | L5-6. 2. No acute fracture or subluxation. Electronically | | | signed by Naresh Leal MD on 01/25/2017 3:09 PM | | + + + + + + | Narrative | Performed At | + + + | [facility] 1960 56 years Male XR LUMBAR SPINE LIMITED 2-3 | | | VIEW 01/25/2017 2:48 PM INDICATION: Back pain COMPARISON: CT, | | | 04/07/2016 TECHNIQUE: Lumbar spine series, 3 views FINDINGS: | | | There are 6 nonrib-bearing lumbar vertebral type bodies for the | | | purposes of this dictation. Lumbar fusion hardware previously seen at | | | L5-6 is unchanged in appearance without evidence of complication. A | | | decompression laminectomy at the level of fusion is noted. There | | | appears to be slight progressive disc space narrowing at the level of | | | L4-L5. Vertebral body heights are maintained with no acute or chronic | | | fracture. There are questionable nonobstructing urinary stones along | | | the left kidney. | | + + + + + | Procedure Note | + + | Kalpesh Brown Conversion - 07/06/2019 12:12 AM PDT [id number] [facility] MaleXR | | LUMBAR SPINE LIMITED 2-3 VIEW01/25/2017 2:48 PM INDICATION: Back pain COMPARISON: CT, | | 04/07/2016 TECHNIQUE: Lumbar spine series, 3 views FINDINGS: There are 6 nonrib-bearing | | lumbar vertebral type bodies for the purposes of this dictation. Lumbar fusion hardware | | previously seen at L5-6 is unchanged in appearance without evidence of complication. A | | decompression laminectomy at the level of fusion is noted. There appears to be slight | | progressive disc space narrowing at the level of L4-L5. Vertebral body heights are | | maintained with no acute or chronic fracture. There are questionable nonobstructing | | urinary stones along the left kidney. IMPRESSION: 1. Unchanged appearance of lumbar | | fusion hardware at the level of L5-6.2. No acute fracture or subluxation. | | | | | |FINDINGS: There are 6 nonrib-bearing lumbar vertebral type bodies for the purposes of this dictation. Lumbar fusion hardware previously seen at L5-6 is unchanged in appearance without evidence of complication. A | |decompression laminectomy at the level of | |fusion is noted. There appears to be slight progressive disc space narrowing at the level o f L4-L5. Vertebral body heights are maintained with no acute or chronic fracture. There are questionable nonobstructing urinary stones along the left kidney. | | | |IMPRESSION: | |1. Unchanged appearance of lumbar fusion hardware at the level of L5-6. | |2. No acute fracture or subluxation. | | | | | + + documented in this encounter Visit Diagnoses + + | Diagnosis | + + | Strain of lumbar paraspinal muscle, initial encounter | + + | Left hip pain Pain in joint, pelvic region and thigh | + + documented in this encounter"
--- OUTSIDE RECORDS SUMMARY | ~2019-11-01 | XMS | Encounter Summary ---
Demographics + + + | Address | [address] | | | [place] [address] | + + + | Home Phone [...] Team Providers + +------+ + | Care Flight Coordinator Name | Role | Phone | [...] Refill | | 2013 | | [facility] [place] | DO [address] | | | | | [address] | [place] | | | | | [place] | [address] | | | | | [address] | | | | | | [phone] | | | +--------+--------+ + + + [...] W | | | | | | [place], | | | | | | [place] [address] | | | | | | [phone] | | | | | | | | +--------+ + + + + | 11/20/ | Implant | Cardiology | Daljit Singletary, | Remote Device | | 2018 | Monitor | | [address] [facility] | Interrogation | | | | | [place], | (Primary Dx); | | | | | [place] [address] | Presence of | | | | | [phone] | permanent cardiac | | | | [...]
--- OUTSIDE RECORDS SUMMARY | ~2019-11-01 | XMS | Encounter Summary ---
Demographics + + + | Address | [address] | | | [place] [address] | + + + | Home Phone [...] Team Providers + +------+ + | Care Felt Cutting Machine Operator Name | Role | Phone [...] + + | 05/14/ | Office | [facility] | [place], | Coronary artery | | 2013 | Visit | CARDIOLOGY [address] | [place]ISA [place] [address] | disease (Primary | | | | [place], | [place], | Dx); Hypertension; | | | | [place] [address] | [place] [address] | Hyperlipidemia; | | | | [phone] | [phone] | Syncope; Other chest | | | [...] needed for Chest pain. 25 tablet 12 [place]-3 Fatty Acids (SALMON OIL-1000 PO) CAPS, one capsule by mouth daily twice daily ONE TOUCH DELICA LANCETS [facility] Check glucose as needed [...] attenuation cannot completely be ruled out. [facility] 12/25/13, shows noncritical coronary [...] exercising. He is in class II of [place] 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 There are no [...] ventricular arrhythmia performed by Dr. Gambino at [facility] on 01/30/2013. Patient had spontaneous PVCs from [...] to go back in 3 days to [place] for an attempt of ablation under general [...] palpitations.. He is in class II of [place] 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 There are no [...] bring in his blood pressure logs from [facility] 5. Lightheadedness and dizziness/ presyncope: A. [...] made to ensure accuracy; however, inadvertent computerized history department chair errors may be pre sent. Electronically signed [...] W | | | | | | [place], | | | | | | [place] [address] | | | | | | [phone] | | | | | | | | +--------+ + + + + | 11/20/ | Implant | Cardiology | Daljit Singletary, | Remote Device | | 2018 | Monitor | | [address] [place] | Interrogation | | | | | [place], | (Primary Dx); | | | | | [place] [address] | Presence of | | | | | [phone] | permanent cardiac | | | | [...] of unspecified type of | | vessel, tejon or graft | + + | Hypertension Unspecified essential hypertension | + + | Hyperlipidemia Other and unspecified hyperlipidemia | + + | Syncope Syncope and collapse | + + | Other chest pain | + + | Chest pain Chest pain, unspecified | + + documented in this encounter
--- OUTSIDE RECORDS SUMMARY | ~2019-11-01 | XMS | Encounter Summary ---
Demographics + + + | Address | [address] | | | [place] [address] | + + + | Home Phone [...] Team Providers + +------+ + | Care Stamp Presser Name | Role | Phone | + [...] Provider Unknown | | | | | [place], [place] | [phone] | | | | | [address] | | | | | | [phone] | | | +--------+ + + + [...] + + + +---------+ + + | [place]-3 Fatty | CAPS, one capsule by | [...] | | | | | | [place] [address] | | | | | | [phone] | | | | | | | | +--------+ + + + + | 11/20/ | Implant | Cardiology | Daljit Singletary, | Remote Device | | 2018 | Monitor | | MD [place] | Interrogation | | | | | [place], | (Primary Dx); | | | | | [place] [address] | Presence of | | | | | [phone] | permanent cardiac | | | | [...]
--- OUTSIDE RECORDS SUMMARY | ~2019-11-01 | XMS | Encounter Summary ---
Demographics + + + | Address | [address] | | | [place] [address] | + + + | Home Phone [...] Team Providers + +------+ + | Care Winchman/Crane Operator Name | Role | Phone | + +------+ + PCP | Unavailable | + +------+ + Encounter Details +--------+ + + + + | Date | Type | Department | Care Team | Description | +--------+ + + + + | 10/19/ | Hospital | [facility] | | | | 1992 | Encounter | [facility] CTR EMERGENCY | | | | | | CENTER [address] | | | | | | [place] | | | | | | [address] | | | | | | [phone] | | | +--------+ + + + [...] | | | | | | [place] [address] | | | | | | [phone] | | | | | | | | +--------+ + + + + | 11/20/ | Implant | Cardiology | Daljit Singletary, | Remote Device | | 2018 | Monitor | | 401 [facility] | Interrogation | | | | | [place], | (Primary Dx); | | | | | [place] [address] | Presence of | | | | | [phone] | permanent cardiac | | | | [...]
--- OUTSIDE RECORDS SUMMARY | ~2019-11-01 | XMS | Encounter Summary ---
Demographics + + + | Address | [address] | | | [place] [address] | + + + | Home Phone [...] Providers + +------+ + | Care Special Assets Officer Name | Role | Phone | [...] 2019 | | GASTROENTEROLOGY | [address] [place], [place] | | | | | [address] [place] | [address] [place], [place] | | | | | [address] [place], [place] | [address] | | | | | [address] | | | | | | [phone] | | | +--------+--------+ + + + [...] [place], | | | | | | [place] [address] | | | | | | [phone] | | | | | | | | +--------+ + + + + | 11/20/ | Implant | Cardiology | Daljit Singletary, | Remote Device | | 2018 | Monitor | | [address] [place] [address] | Interrogation | | | | | [place], | (Primary Dx); | | | | | [place] [address] | Presence of | | | | | [phone] | permanent cardiac | | | | [...]
--- OUTSIDE RECORDS SUMMARY | ~2019-11-01 | XMS | Encounter Summary ---
Demographics + + + | Address | [address] | | | [place] [address] | + + + | Home Phone [...] Providers + +------+ + | Care Sports Anchor Name | Role | Phone | + +------+ + PCP | Unavailable | + +------+ + Encounter Details +--------+ + + + + | Date | Type | Department | Care Team | Description | +--------+ + + + + | 11/12/ | Hospital | [facility] | | | | 1994 | Encounter | MED CTR GENERIC OP | | | | | | CONV DEPT [address] | | | | | | [place], | | | | | | [place] [address] | | | | | | [phone] | | | +--------+ + + + [...] | | | | | | [place] [address] | | | | | | [phone] | | | | | | | | +--------+ + + + + | 11/20/ | Implant | Cardiology | Daljit Singletary, | Remote Device | | 2018 | Monitor | | [address] [facility] | Interrogation | | | | | [place], | (Primary Dx); | | | | | [place] [address] | Presence of | | | | | [phone] | permanent cardiac | | | | [...]
--- OUTSIDE RECORDS SUMMARY | ~2019-11-01 | XMS | Encounter Summary ---
Demographics + + + | Address | [address] | | | [place] [address] | + + + | Home Phone [...] Team Providers + +------+ + | Care Archery Instructor Name | Role | Phone | [...] 2016 | | CARDIOLOGY [address] | ASSISTANT PROFESSOR NURSE EDUCATION [address] | | | | | [place], | [place], [place] | | | | | [place] [address] | [address] | | | | | [phone] | | | +--------+--------+ + + + [...] W | | | | | | [place], | | | | | | [place] [address] | | | | | | [phone] | | | | | | | | +--------+ + + + + | 11/20/ | Implant | Cardiology | Daljit Singletary, | Remote Device | | 2018 | Monitor | | [address] | Interrogation | | | | | [place], | (Primary Dx); | | | | | [place] [address] | Presence of | | | | | [phone] | permanent cardiac | | | | [...]
--- OUTSIDE RECORDS SUMMARY | ~2019-11-01 | XMS | Encounter Summary ---
Demographics + + + | Address | [address] | | | [place] [address] | + + + | Home Phone [...] Providers + +------+ + | Care Director Title Name | Role | Phone | + [...] Provider Unknown | | | | | [place], [place] | [phone] | | | | | [address] | | | | | | [phone] | | | +--------+ + + + [...] + + + +---------+ + + | Byron-3 Fatty | CAPS, one capsule by | [...] | | | | | | | #[id number], exp 07/2016 | | | | | [...] | | | | | | [place] [address] | | | | | | [phone] | | | | | | | | +--------+ + + + + | 11/20/ | Implant | Cardiology | Daljit Singletary, | Remote Device | | 2018 | Monitor | | MD [address] | Interrogation | | | | | [place], | (Primary Dx); | | | | | [place] [address] | Presence of | | | | | [phone] | permanent cardiac | | | | [...]
--- OUTSIDE RECORDS SUMMARY | ~2019-11-01 | XMS | Encounter Summary ---
Demographics + + + | Address | [address] | | | [place] [address] | + + + | Home Phone [...] + +------+ + | Care Social Work Coordinator Name | Role | Phone | [...] W | DISCLOSURE) | | | | [place], | [place], | | | | | [place] [address] | [place] [address] | | | | | [phone] | [phone] | | | | | | | [...] W | | | | | | [place], | | | | | | [place] [address] | | | | | | [phone] | | | | | | | | +--------+ + + + + | 11/20/ | Implant | Cardiology | Daljit Singletary, | Remote Device | | 2018 | Monitor | | [facility] | Interrogation | | | | | [place], | (Primary Dx); | | | | | [place] [address] | Presence of | | | | | [phone] | permanent cardiac | | | | [...]
--- OUTSIDE RECORDS SUMMARY | ~2019-11-01 | XMS | Encounter Summary ---
Demographics + + + | Address | [address] | | | [place] [address] | + + + | Home Phone [...] Team Providers + +------+ + | Care Inhalation Therapy Aides Teacher Name | Role | Phone | [...] [place] | | | | | | [address] | | | | | | [phone] | | | +--------+ + + + [...] W | | | | | | [place], | | | | | | [place] [address] | | | | | | [phone] | | | | | | | | +--------+ + + + + | 11/20/ | Implant | Cardiology | Daljit Singletary, | Remote Device | | 2018 | Monitor | | [address] [facility] | Interrogation | | | | | [place], | (Primary Dx); | | | | | [place] [address] | Presence of | | | | | [phone] | permanent cardiac | | | | [...]
--- OUTSIDE RECORDS SUMMARY | ~2019-11-01 | XMS | Encounter Summary ---
Demographics + + + | Address | [address] | | | [place] [address] | + + + | Home Phone [...] Team Providers + +------+ + | Care 2Nd Grade Teacher Name | Role | Phone | + +------+ + PCP | Unavailable | + +------+ + Encounter Details +--------+ + + + + | Date | Type | Department | Care Team | Description | +--------+ + + + + | 05/24/ | Hospital | [facility] | Chi Fang | Unspecified Chest | | 2008 - | Encounter | [facility] | MD Kelsey [address] | Pain | | | | CLINICAL DECISION | [place] HERNANDEZ | | | 05/25/ | | [address] | [address] | | | 2008 | | [place], [place] | [phone] | | | | | [address] | | | | | | [phone] | | | +--------+ + + + [...] W | | | | | | [place], | | | | | | [place] [address] | | | | | | [phone] | | | | | | | | +--------+ + + + + | 11/20/ | Implant | Cardiology | Daljit Singletary, | Remote Device | | 2018 | Monitor | | [address] [facility] | Interrogation | | | | | [place], | (Primary Dx); | | | | | [place] [address] | Presence of | | | | | [phone] | permanent cardiac | | | | [...] Performed At | + + + | [id number] | | | Page 1 RADIOLOGY | | | CDU 76842/ | | | [facility] | | | CENTER NAME: [place] [address] | | | | | | | | | DATE OF : 1960 ORDER NUMBER: | | | [id number] EXAM DATE/TIME: 05/25/2009 08:00 A ORDERING PHYSICIAN: | | | CHI FANG ORDER DETAIL: [id number] / / [employer] EXAM | | | DESCRIPTION: NM MYOCARDIAL [...] | | administration of 14.9 mCi of gvstbexaeh-71m-mxopupg Myoview. Stress | | | images postinjection [...] | | | images. 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 | | [...] | A | | P | | TSG/dc/[id number]/ | | cc: ANGELA MARADIAGA MD | | FEMI MARIE MD | | CHI FANG MD | | AMY BANEGAS DO | + + ECHO Complete (05/25/2009 7:50 AM PDT) + + | Specimen | + + | | + + + + + | Narrative | Performed At | + + + | [id number] | | | Page 1 ECHO [facility] NAME: | | | [place] [address] MEDICAL RECORD #: | | | [id number] | | | DATE OF : 1960 ORDER | | | NUMBER: [id number] EXAM DATE/TIME: 05/25/2009 07:34 PERFORMING | | [...] Excursion: | | | 1.89 cm E-F Lehigh: 0.08 m/s HR: 43.51 BPM AV maxP.11 [...] | | | 0.33 m/s TV Dec Lehigh: 1.73 m/s2 TV Dec Time: 344.24 ms TV | | | E Bravo: 0.59 m/s TV E/A Ratio: 1.80 TV maxP.40 mmHg TV | | | meanP.44 mmHg TV Vmax: 0.59 m/s TV Vmean: 0.30 m/s TV | | | VTI: 22.88 cm Magnet Maker: ANTHONY Authenticated by: Edwardo Tee | | | Carlos WINKLER Report Date/Time: 05-25-2009 10:19:52 | | + + + + + | Procedure Note | + + | Kalpesh Brown Conversion - 07/17/2019 2:13 AM [facility] [id number] | | Page [address] [place] [address] NAME: [place] | | [address] : ACCOUNT #: | | [id number]: DATE OF : 1960ORDER NUMBER: | | [id number] DATE/TIME: 05/25/2009 07:34PERFORMING PHYSICIAN: Edwardo Gonzalez | [...] mlLAESV Index (A-L): 26.03 ml/m2LAAs A2C: 14.93 [id number] A-L | | A2C: 44.50 mlLALs A2C: 4.25 cmLAAs A4C: 18.42 [id number] A-L A4C: 55.79 mlLALs | | A4C: 5.16 cmAo Diam: 3.91 cmAV Cusp: 2.23 cmLA Diam: 3.79 cmLA/Ao: 0.96%FS: | | 43.37 %EDV(Teich): 146.19 mlEF(Teich): 73.99 %ESV(Teich): 38.01 mlIVSd: 1.57 | | cmIVSs: 1.79 cmLVIDd: 5.48 cmLVIDs: 3.10 cmLVPWd: 1.32 cmLVPWs: 1.79 | | cmSV(Teich): 108.18 mlD-E Excursion: 1.89 cmE-F Lehigh: 0.08 m/sHR: 43.51 BPMAV | | maxP.11 mmHgAV meanP.33 mmHgAV Vmax: 1.74 m/Zabrina Vmean: 1.06 m/Zabrina VTI: | | 35.51 cmAVA Vmax: 2.77 cm2AVA (VTI): 2.54 [id number] Dopp: 3.00 l/uckg8QPXG Dopp: | | 6.33 l/minHR: 70.25 BPMLVOT maxP.78 mmHgLVOT meanP.02 mmHgLVSI Dopp: | | 42.76 ml/m2LVSV Dopp: 90.23 mlLVOT Vmax: 1.30 m/sLVOT Vmean: 0.80 m/sLVOT VTI: | | 24.35 cmMV A Bravo: 0.70 m/sMV DecT: 242.46 msMV E Bravo: 0.91 m/sMV E/A Ratio: | | 1.31MV maxP.40 mmHgMV meanP.82 mmHgMV Vmax: 0.92 m/sMV Vmean: 0.37 m/sMV | | VTI: 26.47 cmMVA (VTI): 3.40 gq7Hiyhcw e': 0.08 m/sSeptal E/e': 11.24HR: | | 60.55 BPMPV maxP.04 mmHgPV meanP.39 mmHgPV Vmax: 0.87 m/sPV Vmean: 0.55 | | m/sPV VTI: 19.09 cmRAP: 5 mmHgRVSP: 21.72 mmHgTR maxP.72 mmHgTR Vmax: | | 2.04 m/sTV A Bravo: 0.33 m/sTV Dec Lehigh: 1.73 m/s2TV Dec Time: 344.24 msTV E Bravo: | | 0.59 m/sTV E/A Ratio: 1.80TV maxP.40 mmHgTV meanP.44 mmHgTV Vmax: 0.59 | | m/sTV Vmean: 0.30 m/sTV VTI: 22.88 cm Magnet Maker: KVWAuthenticated by: Edwardo Tee | | Carlos [...] | |D-E Excursion: 1.89 cm | |E-F Lehigh: 0.08 m/s | |HR: 43.51 BPM | [...] A Bravo: 0.33 m/s | |TV Dec Lehigh: 1.73 m/s2 | |TV Dec Time: 344.24 ms | |TV E Bravo: 0.59 m/s | |TV E/A Ratio: 1.80 | |TV maxP.40 mmHg | |TV meanP.44 mmHg | |TV Vmax: 0.59 m/s | |TV Vmean: 0.30 m/s | |TV VTI: 22.88 cm | | | |Magnet Maker: KVW | |Authenticated by: Edwardo Gonzalez MD | |Report Date/Time: 05-25-2009 10:19:52 | + + CT Head wo Contrast (05/24/2009 12:58 PM PDT) + + | Specimen | + + | | + + + + + | Narrative | Performed At | + + + | [id number] | | | Page 1 RADIOLOGY | | | CDU 61289/ | | | [facility] | | | CENTER NAME: [place] [address] | | | | | | | | | DATE OF : 1960 ORDER NUMBER: | | | [id number] EXAM DATE/TIME: 05/24/2009 12:47 P ORDERING PHYSICIAN: [...] | | asymmetrically dense vessel about the [place] of [place]. No | | | hydrocephalus. [...] 08:45 P P P | | | [facility]/[id number]/ cc: MD ANGELA AVENDAÑO MD | | | MD AMY HAM DO | | + + + + + | Procedure Note | + + | Kalpesh Brown Conversion - 07/17/2019 2:13 AM PDT | | [id number] Page 1 | | RADIOLOGY CDU 68237/ | | OPO | | [facility] NAME: PINA GAY | | [place] [address] | | | | DATE OF : 1960 | | | | ORDER NUMBER: [id number] | | EXAM DATE/TIME: 05/24/2009 12:47 P [...] is no asymmetrically dense vessel about the [place] of [place]. No | | hydrocephalus. Some [...] | P | | P | | [facility]/tp/[id number]/ | | cc: VINAY HILL MD | | ANGELA MARADIAGA MD | | FEMI MARIE MD | | AMY BANEGAS, DO | + + XR Chest 2 Vws (05/24/2009 11:31 AM PDT) + + | Specimen | + + | | + + + + + | Narrative | Performed At | + + + | [id number] | | | Page 1 RADIOLOGY | | | [facility] [address]/ | | | OPO [facility] | | | [place] [address] | | | | | | | | | DATE OF : 1960 ORDER NUMBER: | | | [id number] EXAM DATE/TIME: 05/24/2009 11:19 A ORDERING PHYSICIAN: [...] DT: | | | 05/24/2009 05:38 P [id number]/[id number]/ cc: VINAY HILL MD | | | MD FEMI FOSS MD JOSEPH | | | P BASSAM DO | | + + + + + | Procedure Note | + + | Kalpesh Brown Conversion - 07/17/2019 2:13 AM PDT | | [id number] Page 1 | | RADIOLOGY CDU 59167/ | | OPO | | [facility] NAME: PINA [place] | | [place] [address] | | | | DATE OF : 1960 | | | | ORDER NUMBER: [id number] | | EXAM DATE/TIME: 05/24/2009 11:19 A [...] | P | | P | | [facility]//[id number]/ | | cc: VINAY HILL MD | | ANGELA MARADIAGA MD | | FEMI MARIE MD | | AMY BANEGAS DO | + + documented in this encounter Visit Diagnoses + + | Diagnosis | + + | Chest pain, unspecified | + + documented in this encounter"
--- OUTSIDE RECORDS SUMMARY | ~2019-11-01 | XMS | Encounter Summary ---
Demographics + + + | Address | [address] | | | [place] [address] | + + + | Home Phone [...] Team Providers + +------+ + | Care Grievance Manager Name | Role | Phone | [...] + + | 05/26/ | Emergency | [facility] | Lizbeth Green | Atypical chest pain | | 2013 | | [facility] | DO Nicole Fink | (Primary Dx); | | | | CENTER [address] | [place], [place] | Anxiety | | | | [place], [place] | [address] | | | | | [address] | | | | | | [phone] | | | +--------+ + + + [...] + + +---------+ + + | [place]-3 Fatty | CAPS, one capsule by | [...] W | | | | | | [place], | | | | | | [place] [address] | | | | | | [phone] | | | | | | | | +--------+ + + + + | 11/20/ | Implant | Cardiology | Daljit Singletary, | Remote Device | | 2018 | Monitor | | MD Sim [facility] | Interrogation | | | | | St[place], | (Primary Dx); | | | | | [place] [address] | Presence of | | | | | [phone] | permanent cardiac | | | | [...] the uneventful IV administration of 80 mL Pqhqwpwoz789 contrast. Timing of | | contrast bolus [...] + | MISCELLANEOUS LAB | | | [phone] | + +---------+ + + | MISCELANIOUS LAB | | | [phone] | + +---------+ + + Troponin I [...] | | | | | | [employer] | | | | | [...] + | [facility] | [address] | [place], [place] | [phone] | | [facility] | | [address] | | | - LABORATORY | | | | + + + + + | [facility] | [address] | [place], [place] | | | [facility] | | [address] | | | - LABORATORY | | [...] 12 | 7 - 18 mg/dL | [facility] | | | | | | [facility] | | | | | | MEDICAL | | | | | | CENTER - | | | | | | LABORATORY | | + + + + + + | Creatinine | 0.89 | 0.60 - 1.30 | [facility] | | | | | mg/dL | [facility] | | | | | | MEDICAL | | | | | | CENTER - | | | | | | LABORATORY | | + + + + + + | eGFR if not | >60Comment: GLOMERULAR | >=60 | [facility] | | | | FILTRATION | mL/min/1.73m2 | [facility] | | | SOMALI | RATE,ESTIMATED | | MEDICAL | | | | mL/min/1.80c8Nzwb than | | CENTER - | | [...] + | [facility] | [address] | [place] | [phone] | | [facility] | | [address] | | | - LABORATORY | | | | + + + + + | [facility] | [address] | [place] | | | [facility] | | [address] | | | - LABORATORY | | | | + + + + + CBC with Differential (05/26/2014 3:43 PM PDT) + +-------+ + + + | Component | Value | Ref Range | Performed | Pathologist | | | | | At | Signature | + +-------+ + + + | WBC | 8.4 | 4.0 - 11.0 K/uL | [facility] [...] | | Lymphocytes | | K/uL | . [facility] | | | | | | MEDICAL | | | | | | CENTER - | | | | | | LABORATORY | | + +-------+ + + + | Absolute | 0.70 | 0.00 - 1.00 | [facility] | | | Monocytes | | K/uL | . [facility] | | | | [...] + | [facility] | [address] | [place] | [phone] | | [facility] | | [address] | | | - LABORATORY | | | | + + + + + | [facility] | [address] | [place] | | | [facility] | | [address] | | | - LABORATORY | | [...]
--- OUTSIDE RECORDS SUMMARY | ~2019-11-01 | XMS | Encounter Summary ---
Demographics + + + | Address | [address] | | | [place] [address] | + + + | Home Phone [...] Team Providers + +------+ + | Care Engine Specialist Name | Role | Phone | [...] + + | 12/21/ | Office | [facility] | [place], | Chest pain (Primary | | 2013 | Visit | CARDIOLOGY [address] | [address] | Dx); Symptomatic | | | | [place], | [place], | PVCs; | | | | [place] [address] | [place] [address] | Hyperlipidemia; | | | | [phone] | [phone] | Hypertension; | | | | | [...] this time to see a specialist in [place] and he was to follow up with [...] MOUTH EVERY DAY 30 table t 5 Conrad-3 Fatty Acids (SALMON OIL-1000 PO) CAPS, one [...] [facility] on 01/30/2013. Patient had spontaneous PVCs [...] to go back in 3 days to [place] for an attempt of ablation under general [...] tolic function, LVEF 65 to 70%. 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 documented in this encounter Plan of Treatment +--------+ + + + + | Date | Type | Specialty | Care Team | Description | +--------+ + + + + | 11/09/ | Office | Cardiology | Sil[place], | | | 2019 | Visit | | PARISA [address] | | | | | | [place], | | | | | | [place] [address] | | | | | | [phone] | | | | | | | | +--------+ + + + + | 11/20/ | Implant | Cardiology | Daljit Singletary, | Remote Device | | 2019 | Monitor | | [address] [place] | Interrogation | | | | | [place], | (Primary Dx); | | | | | [place] [address] | Presence of | | | | | [phone] | permanent cardiac | | | | [...] of unspecified type of vessel, | | stebbins or graft | + + documented in this encounter
--- OUTSIDE RECORDS SUMMARY | ~2019-11-01 | XMS | Encounter Summary ---
Demographics + + + | Address | [address] | | | [place] [address] | + + + | Home Phone [...] Team Providers + +------+ + | Care Surgical Technologist Name | Role | Phone | [...] | 06/22/ | Telephone | [facility] | Vasiliy Michael [place], | Eye Problem | | 2012 | | MEDICINE [facility] | DO [address] | | | | | [address] | [place] | | | | | [place] | [address] | | | | | [address] | | | | | | [phone] | | | +--------+ + + + [...] W | | | | | | [place], | | | | | | [place] [address] | | | | | | [phone] | | | | | | | | +--------+ + + + + | 11/20/ | Implant | Cardiology | Daljit Singletary, | Remote Device | | 2018 | Monitor | | [address] [facility] | Interrogation | | | | | [place], | (Primary Dx); | | | | | [place] [address] | Presence of | | | | | [phone] | permanent cardiac | | | | [...]
--- OUTSIDE RECORDS SUMMARY | ~2019-11-01 | XMS | Encounter Summary ---
Demographics + + + | Address | [address] | | | [place] [address] | + + + | Home Phone [...] Providers + +------+ + | Care Supervisor Braiding Name | Role | Phone | + +------+ + | Kirk French MD | PCP | | + +------+ + Encounter Details +--------+ + + + + | Date | Type | Department | Care Team | Description | +--------+ + + + + | 08/10/ | Orders Only | [facility] | [place], | Mixed hyperlipidemia | | 2016 | | [facility] | PARISA [address] | (Primary Dx) | | | | [address] [place] | [place], | | | | | [place] | [place] [address] | | | | | [address] | [phone] | | | | | [phone] | | | +--------+ + + + [...] W | | | | | | [place], | | | | | | [place] [address] | | | | | | [phone] | | | | | | | | +--------+ + + + + | 11/20/ | Implant | Cardiology | Daljit Singletary, | Remote Device | | 2018 | Monitor | | [place] [facility] | Interrogation | | | | | [place], | (Primary Dx); | | | | | [place] [address] | Presence of | | | | | [phone] | permanent cardiac | | | | [...]
--- OUTSIDE RECORDS SUMMARY | ~2019-11-01 | XMS | Encounter Summary ---
Demographics + + + | Address | [address] | | | [place] [address] | + + + | Home Phone [...] Team Providers + +------+ + | Care Numerical Analysis Group Manager Name | Role | Phone | [...] | | | pain | [address] | [address] | | | | | Procedures | [place] | [place], | | | | | [place] | [place], [place] | [place] | | | | | Stress Test | [address] | [address] | | | | | (Vasodilator | Phone: | Phone: | | | | | ) CHG | [phone] | [phone] | | | | | MYOCARDIAL | Fax: | Fax: | | | | | SPECT | [phone] | [phone] | | | | | MULTIPLE | [...] | | CARDIOLOGY [address] | MANAGER TELEMARKETING [address] | interactions, chest | | | | [place], | [place], [place] | pain) | | | | [place] [address] | [address] | | | | | [phone] | | | +--------+ + + + [...] | | | | | | [place], | | | | | | [place] [address] | | | | | | [phone] | | | | | | | | +--------+ + + + + | 11/20/ | Implant | Cardiology | Daljit Singletary, | Remote Device | | 2018 | Monitor | | MD [address] [facility] | Interrogation | | | | | [place], | (Primary Dx); | | | | | [place] [address] | Presence of | | | | | [phone] | permanent cardiac | | | | [...] Performed At | + + + | [facility] Diagnostic [facility] | [place] | | Department [address] [place] [address] [facility] | | [ rep ct street[address]] [ rep [facility] | | st zip] Signed | - IMAGING | | | | | Patient Name: MOE GAY | | | Physician: JACKLYN : 1960 Age: 53 Sex: M Unit | | | #: [id number] Exam Date: 12/06/13 Location: | | | [facility] Report #: [id number] Page: | | | %(RAD)RES..mtdd.print.filter("pg") of %(RAD) | | | RES..mtdd.print.filter("tpg") | | | | | | Accession Number: [id number] | | | PERSANTINE SESTAMIBI STRESS TEST, [...] Transcribed Date/Time: 12/07/2013 08:18 | | | Electronic System Engineer: <<Signature on File>> | | | | | | Daljit Singletary MD [facility] FAS12/07/13 1321 <Electronically signed | | | by Daljit Singletary MD, [facility], [facility], [facility], [facility]> Daljit | | | MD [employer] [facility] 12/07/13 0701 Electronic System Engineer: Jessica | | | Aphuexfufsaez66/16/14 0818 PARISA Garcia | | + + + + + + + + | Performing | Address | City/State/Zipcode | Phone Number | | Organization | | | | + + + + + | [facility] | [address] | [place] | [phone] | | [facility] | | [address] | | | - IMAGING | | | | + + + + + documented in this encounter Visit Diagnoses + + | Diagnosis | + + | Other chest pain - Primary | + + documented in this encounter
--- OUTSIDE RECORDS SUMMARY | ~2019-11-01 | XMS | Encounter Summary ---
Demographics + + + | Address | [address] | | | [place] [address] | + + + | Home Phone [...] Providers + +------+ + | Care Claim Examiner Name | Role | Phone | [...] + | 01/02/ | Telephone | [facility] | Daljit Singletary, | Other (chest pain) | | 2018 | | CARDIOLOGY [address] | MD [address] | | | | | [place], | [place], | | | | | [place] [address] | [place] [address] | | | | | [phone] | [phone] | | | | | | | [...] W | | | | | | [place], | | | | | | [place] [address] | | | | | | [phone] | | | | | | | | +--------+ + + + + | 11/20/ | Implant | Cardiology | Daljit Singletary, | Remote Device | | 2018 | Monitor | | MD [facility] | Interrogation | | | | | [facility], | (Primary Dx); | | | | | [place] [address] | Presence of | | | | | [phone] | permanent cardiac | | | | [...]
--- OUTSIDE RECORDS SUMMARY | ~2019-11-01 | XMS | Encounter Summary ---
Demographics + + + | Address | [address] | | | [place] [address] | + + + | Home Phone [...] Providers + +------+ + | Care Maintenance Of Way Clerk Name | Role | Phone | [...] [address] | | | | | [place], | [place], | | | | | [place] [address] | [place] [address] | | | | | [phone] | [phone] | | | | | | | [...] W | | | | | | [place], | | | | | | [place] [address] | | | | | | [phone] | | | | | | | | +--------+ + + + + | 11/20/ | Implant | Cardiology | Daljit Singletary, | Remote Device | | 2018 | Monitor | | [address] | Interrogation | | | | | [place], | (Primary Dx); | | | | | [place] [address] | Presence of | | | | | [phone] | permanent cardiac | | | | [...]
--- OUTSIDE RECORDS SUMMARY | ~2019-11-01 | XMS | Encounter Summary ---
Demographics + + + | Address | [address] | | | [place] [address] | + + + | Home Phone [...] Team Providers + +------+ + | Care Culinary Arts Instructor Name | Role | Phone | [...] W | reprogramming/check | | | | [address] [place], | [address] [place] | [place]LETE | | | | [place] [address] | [place] [address] | (Primary Dx); | | | | [phone] | [phone] | Pacemaker - | | | | [...] | | | | | | [place] [address] | | | | | | [phone] | | | | | | | | +--------+ + + + + | 11/20/ | Implant | Cardiology | Daljit Singletary, | Remote Device | | 2018 | Monitor | | MD [address] | Interrogation | | | | | [place], | (Primary Dx); | | | | | [place] [address] | Presence of | | | | | [phone] | permanent cardiac | | | | [...]
--- OUTSIDE RECORDS SUMMARY | ~2019-11-01 | XMS | Encounter Summary ---
Demographics + + + | Address | [address] | | | [place] [address] | + + + | Home Phone [...] Providers + +------+ + | Care Engineering Associate Name | Role | Phone | [...] + | 01/25/ | Telephone | [facility] | Daljit Singletary, | Appointment | | 2017 | | CARDIOLOGY [address] | MD [address] [facility] | | | | | [facility] [place], | [place], | | | | | [place] [address] | [place] [address] | | | | | [phone] | [phone] | | | | | | | [...] | | | | | | [facility] [place], | | | | | | [place] [address] | | | | | | [phone] | | | | | | | | +--------+ + + + + | 11/20/ | Implant | Cardiology | Daljit Singletary, | Remote Device | | 2018 | Monitor | | MD [address] | Interrogation | | | | | [place], | (Primary Dx); | | | | | [place] [address] | Presence of | | | | | [phone] | permanent cardiac | | | | [...]
--- OUTSIDE RECORDS SUMMARY | ~2019-11-01 | XMS | Encounter Summary ---
Demographics + + + | Address | [address] | | | [place] [address] | + + + | Home Phone [...] Providers + +------+ + | Care Manager Administration Name | Role | Phone | + [...] | | CARDIOLOGY [address] | [address] | | | | | [place], | [place], | | | | | [place] [address] | [place] [address] | | | | | [phone] | [phone] | | | | | | | [...] | | | | | | [place] [address] | | | | | | [phone] | | | | | | | | +--------+ + + + + | 11/20/ | Implant | Cardiology | Daljit Singletary, | Remote Device | | 2019 | Monitor | | [facility] | Interrogation | | | | | [place], | (Primary Dx); | | | | | [place] [address] | Presence of | | | | | [phone] | permanent cardiac | | | | [...] + | [facility] | [address] | [place] | [phone] | | [facility] | | [address] | | | - LABORATORY | | | | + + + + + | [facility] | [address] | [place] | | | [facility] | | [address] | | | - LABORATORY | | [...] [place]Y [place] | | | | | [facility] | | | | | - LABORATORY | | | | + +---------+ + + documented in this encounter Visit Diagnoses Not on filedocumented in this encounter"
--- OUTSIDE RECORDS SUMMARY | ~2019-11-01 | XMS | Encounter Summary ---
Demographics + + + | Address | [address] | | | [place] [address] | + + + | Home Phone [...] Providers + +------+ + | Care Pediatric Medical Assistant Name | Role | Phone | [...] 2019 | | GASTROENTEROLOGY | [address], [place] | | | | | [address] [place] | [address] [place], [place] | | | | | [address] [place], [place] | [address] | | | | | [address] | | | | | | [phone] | | | +--------+ + + + [...] | | | | | | [place] [address] | | | | | | [phone] | | | | | | | | +--------+ + + + + | 11/20/ | Implant | Cardiology | Daljit Singletary, | Remote Device | | 2019 | Monitor | | MD Chiquis [address]ro | Interrogation | | | | | [place], | (Primary Dx); | | | | | [place] [address] | Presence of | | | | | [phone] | permanent cardiac | | | | [...]
--- OUTSIDE RECORDS SUMMARY | ~2019-11-01 | XMS | Encounter Summary ---
Demographics + + + | Address | [address] | | | [place] [address] | + + + | Home Phone [...] Team Providers + +------+ + | Care Newscast Producer Name | Role | Phone | [...] + + | 06/06/ | Office | [facility] | Silvia, | Essential | | 2019 | Visit | CARDIOLOGY [address] | [place] [address] | hypertension | | | | [place], | [place], | (Primary Dx); | | | | [place] [address] | [place] [address] | Sinoatrial node | | | | [phone] | [phone] | dysfunction (HCC) | | | | | | with symptomatic | | | | | | bradycardia; | | | | | | Symptomatic PVCs; | | | | | | Tachycardia; | | | | | | Coronary artery | | | | | | disease involving | | | | | | sh[place] ira coronary | | | | | | artery of [place]a | | | | | | heart [...] encounter Patient Instructions Patient Instructions Julia Allen, Sericulturist - 06/06/2019 2:15 PM PDT1. Take a [...] of -critical coronary artery dise ase involving [place] coronary artery of [place] heart without angina pectoris, essential hype rtension, [...] was seen in the emergency department at [facility] in [place] due to chest pain, no medication changes at that time. On 06/02/2019 he was seen here in the [facility] department with chest pain, irregular heart [...] Preventative health care Coronary artery disease involving [place] ira coronary artery of [place] heart without angina pectoris Cannabis abuse, [...] 3RD DOSE, CALL 911 100 tablet 3 [place]-3 Fatty Acids (SALMON OIL-1000 PO) CAPS, one capsule by mouth daily twice daily ondansetron (ZOFRAN ODT) 4 mg disintegrating tablet Take 4 mg by mouth every 8 hours as needed for Nausea. ONE TOUCH DELICA LANCETS [facility] [...] ASSESSMENT: 1. Non-critical Coronary artery disease involving [place] ira coronary artery of sh[place] ira heart [facility] angina pectoris: A.Normal exercise sestamibi [...] performed by Dr Juan Diego Gambino at [facility] on 01/30/2013.Patient had spontaneous PVC'sfr om [...] to go back in 3 days to [place] for an attempt of ablation under general [...] a normal stable device function. Estimated remaining [facility] longevity is 3.5 years. [...] visit, or sooner with concerns. Julia Clemente, Sericulturist am acting as a scribe on behalf of, and in the presenc e of PARISA Lomas. - Reji Church 06/06/2019 15:10 Janeen Clemente ARNP, personally performed the services described in this documentati on, as scribed in my presence and it is both accurate and complete. -PARISA Lomas 06/06/2019 Portions of this chart may have been created with Mevvy voice recognition software. Occasi onal wrong-word or [...] | | | | | | [place] [address] | | | | | | [phone] | | | | | | | | +--------+ + + + + | 11/20/ | Implant | Cardiology | Sydni Singletary, | Remote Device | | 2018 | Monitor | | MD [address] [place] | Interrogation | | | | | [place], | (Primary Dx); | | | | | [place] [address] | Presence of | | | | | [phone] | permanent cardiac | | | | [...] MD | | | | | | ([id number]) on 06/06/2019 | | | | | [...] + + | Coronary artery disease involving shishmaref ira coronary artery of shish[place] ira heart without | | angina pectoris | + + | Syncope, unspecified syncope type | + + | Ascending thoracic aortic aneurysm (HCC) Thoracic aneurysm without mention of rupture | + + | Hyperlipidemia, mixed Mixed hyperlipidemia | + + documented in this encounter
--- OUTSIDE RECORDS SUMMARY | ~2019-11-01 | XMS | Encounter Summary ---
Demographics + + + | Address | [address] | | | [place] [address] | + + + | Home Phone [...] Providers + +------+ + | Care Traffic Incident Management Manager Name | Role | Phone | [...] + | 09/01/ | Telephone | [facility] | Silvia, | Appointment | | 2016 | | CARDIOLOGY [address] | [place] [address] | (Reschedule) | | | | [place], | [place], | | | | | [place] [address] | [place] [address] | | | | | [phone] | [phone] | | | | | | | [...] | | | | | | [place], | | | | | | [place] [address] | | | | | | [phone] | | | | | | | | +--------+ + + + + | 11/20/ | Implant | Cardiology | Daljit Singletary, | Remote Device | | 2018 | Monitor | | [address] [place] | Interrogation | | | | | [place], | (Primary Dx); | | | | | [place] [address] | Presence of | | | | | [phone] | permanent cardiac | | | | [...]
--- OUTSIDE RECORDS SUMMARY | ~2019-11-01 | XMS | Encounter Summary ---
Demographics + + + | Address | [address] | | | [place] [address] | + + + | Home Phone [...] + +------+ + | Care Visitor Services Assistant Name | Role | Phone | [...] + + | 12/23/ | Telephone | [facility] | Emmanuel Daniel MD | Other (Needs to know | | 2017 | | GASTROENTEROLOGY | [address], [place] | what he can eat | | | | [address] [place] | [address] [place], [place] | today) | | | | [address] [place], [place] | [address] | | | | | [address] | | | | | | [phone] | | | +--------+ + + + [...] | | | | | | [place] [address] | | | | | | [phone] | | | | | | | | +--------+ + + + + | 11/20/ | Implant | Cardiology | Daljit Singletary, | Remote Device | | 2018 | Monitor | | MD [address] | Interrogation | | | | | [place], | (Primary Dx); | | | | | [place] [address] | Presence of | | | | | [phone] | permanent cardiac | | | | [...]
--- OUTSIDE RECORDS SUMMARY | ~2019-11-01 | XMS | Encounter Summary ---
Demographics + + + | Address | [address] | | | [place] [address] | + + + | Home Phone [...] Providers + +------+ + | Care Head Start Coordinator Name | Role | Phone | [...] | | | [place] | [place] [address] | | | | | | [address] | Phone: | | | | | | Phone: | [phone] | | | | | | [phone] | Fax: | | | | | | Fax: | [phone] | | | | | | [phone] | | +--------+ + + + + [...] | diurnal enuresis | | | | [place], [place] | [place], [place] | (Primary Dx); BPH | | | | [address] | [address] | with | | | | [phone] | | obstruction/lower | | | | [...] Haleigh rodarte states that the surgeon in [place] who performed his neck surgery is no longer practicing a nd was apparently disciplined and had his license revoked by the [facility]. He has ed marijuana for his chronic [...] APNEA CONDS CLASSIFIED ELSEWHERE (12/15/2010); Ulcerative colitis ([facility]); Ches t pain; SINUS BRADYCARDIA; HEPATITIS B; PUD; FATTY LIVER DISEASE; SUBSTANCE ABUSE, MULTIPLE; Preventative health care (06/26/2013); Bladder troubles; Tuberculosis; Anginal pain ([facility]); St roke ([facility]); Prostate troubles; and Neurological disorder. Past Surgical [...] needed for Chest pain. 25 tablet 12 [place]-3 Fatty Acids (SALMON OIL-1000 PO) CAPS, [...] Date/Time: 04/22/2012 16:56 Transcribed Date/Time: 04/22/2012 17:32 Edge Bonder: <Electronically Signed by Jama Solis MD> 04/23/12 [...] Date/Time: 04/23/2012 10:54 Transcribed Date/Time: 04/23/2012 11:06 Edge Bonder: <Electronically Signed by Jama Solis MD> 04/24/12 1146 IMPRESSION: 1. Nocturnal and diurnal enuresis. I [...] bladder, still believe that the recommendations from [facility] neurosurgeon, Dr. Demarco, on 03/13/2014 would [...] have not thoroughly proofread this note, and rental representative erro rs may occur. CC: Kirk French [...] | | | | | | [place] [address] | | | | | | [phone] | | | | | | | | +--------+ + + + + | 11/20/ | Implant | Cardiology | Daljit Singletary, | Remote Device | | 2019 | Monitor | | [address] [facility] | Interrogation | | | | | [place], | (Primary Dx); | | | | | [place] [address] | Presence of | | | | | [phone] | permanent cardiac | | | | [...] 1.001 - 1.030 | | | | [place], | | | | | | UA, [...]
--- OUTSIDE RECORDS SUMMARY | ~2019-11-01 | XMS | Encounter Summary ---
Demographics + + + | Address | [address] | | | [place] [address] | + + + | Home Phone [...] + +------+ + | Care Real Estate Recruiter Name | Role | Phone | [...] Eva [place] | | | | | [place], [place] | [address] | | | | | [address] | [place] [address] | | | | | [phone] | [phone] | | | | | | | [...] W | | | | | | [place], | | | | | | [place] [address] | | | | | | [phone] | | | | | | | | +--------+ + + + + | 11/20/ | Implant | Cardiology | Daljit Singletary, | Remote Device | | 2018 | Monitor | | MD Sim [facility] | Interrogation | | | | | [place], | (Primary Dx); | | | | | [place] [address] | Presence of | | | | | [phone] | permanent cardiac | | | | [...]
--- OUTSIDE RECORDS SUMMARY | ~2019-11-01 | XMS | Encounter Summary ---
Demographics + + + | Address | [address] | | | [place] [address] | + + + | Home Phone [...] Providers + +------+ + | Care Php Wordpress Developer Name | Role | Phone | [...] + + | 07/13/ | Telephone | [facility] | Kirk French | Referral Question | | 2019 | | [facility] | MD Bre[address] | | | | | [facility] [address] | [address] | | | | | [address] | [place] [address] | | | | | [place], [place] | [phone] | | | | | [address] | | | | | | [phone] | | | +--------+ + + + [...] | | | | | | [place] [address] | | | | | | [phone] | | | | | | | | +--------+ + + + + | 11/20/ | Implant | Cardiology | Daljit Singletary, | Remote Device | | 2018 | Monitor | | MD Chiqu[address] Oro | Interrogation | | | | | [place], | (Primary Dx); | | | | | [place] [address] | Presence of | | | | | [phone] | permanent cardiac | | | | [...]
--- OUTSIDE RECORDS SUMMARY | ~2019-11-01 | XMS | Encounter Summary ---
Demographics + + + | Address | [address] | | | [place] [address] | + + + | Home Phone [...] + +------+ + | Care Information Systems Supervisor Name | Role | Phone | [...] + + | 03/07/ | Office | [facility] | [place], | SINUS BRADYCARDIA | | 2013 | Visit | CARDIOLOGY [address] | [place] [address] | (Primary Dx); | | | | [place], | [place], | Syncope; Symptomatic | | | | [place] [address] | [place] [address] | PVCs; Pacemaker - | | | | [phone] | [phone] | Medtronic - [id number] | | | [...] Sanchez Date: March 07, 2014 : 1960 [employer]: Kailey Pruitt RN Device Shredding Machine Operator:Medtronic Sense (mV) Impedance (?) Capture (V) Capture (ms) A Lead >5.60 402 1.500 0.09 RV Lead >31.36 522 2.00 0.09 LV Lead Battery Impedance (?): 528 Battery Voltage (V): 2.79 LA Interval (ms): 147 AR Interval (ms): 217 VA Conduction: Mode Switch Events: 0 % of time: 0 -HVAC JOURNEYMAN: <0.1% AP-HVAC JOURNEYMAN: 0.1% -VS: 23.8% AP-VS: 76.1% HVAC JOURNEYMAN: Magnetic Rate: 85 LINDA: 65 LEAH: Current [...] Pruitt RN 03/07/2014 12:00 Janeen Mccollum AR MARKETING SEGMENT MANAGER - 03/07/2014 11:07 AM PDT PATIENT NAME: [...] headaches. He paulino d been seen at [facility] a couple times with chest [...] needed for Chest pain. 25 tablet 12 [place]-3 Fatty Acids (SALMON OIL-1000 PO) CAPS, one [...] Sanchez Date: March 07, 2014 : 1960 [employer]: Kailey Pruitt RN Device Shredding Machine Operator:[employer] Sense (mV) Impedance (?) Capture (V) Capture (ms) A Lead >5.60 402 1.500 0.09 RV Lead >31.36 522 2.00 0.09 LV Lead Battery Impedance (?): 528 Battery Voltage (V): 2.79 LA Interval (ms): 147 AR Interval (ms): 217 VA Conduction: Mode Switch Events: 0 % of time: 0 -HVAC JOURNEYMAN: <0.1% AP-HVAC JOURNEYMAN: 0.1% -VS: 23.8% AP-VS: 76.1% HVAC JOURNEYMAN: Magnetic Rate: 85 LINDA: 65 LEAH: Current [...] attenuation cannot completely be ruled out. D. [facility] 12/25/13, shows noncritical coronary artery disease, [...] pain. He is in class II of [place] Heart Association functional class . There are [...] arrhythmia performed by Dr. Gambino at [facility] on 01/30/2013. Patient [...] to go back in 3 days to [place] for an attempt of ablation under [...] palpitations.. He is in class II of [place] Heart Ass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 There are no [...] bring in his blood pressure logs from [facility] 5. Lightheadedness and dizziness/ presyncope: A. [...] made to ensure accuracy; however, inadvertent computerized stretcher drier operator errors may be pre sent. Electronically signed [...] W | | | | | | [place], | | | | | | [place] [address] | | | | | | [phone] | | | | | | | | +--------+ + + + + | 11/20/ | Implant | Cardiology | Daljit Singletary, | Remote Device | | 2019 | Monitor | | MD Chiqu[address] Oro | Interrogation | | | | | [place], | (Primary Dx); | | | | | [place] [address] | Presence of | | | | | [phone] | permanent cardiac | | | | [...] 12:01 DEVICE INTERROGATION | | | Name: Moe Sanchez Date: March 07, 2014 : | | | 1960 [employer]: Kailey Pruitt RN Device | | | Shredding Machine Operator:[employer] Sense (mV) Impedance (?) Capture (V) | | | Capture (ms) A Lead >5.60 402 1.500 0.09 RV Lead >31.36 522 2.00 | | | 0.09 LV Lead Battery Impedance (?): 528 Battery Voltage (V): | | | 2.79 LA Interval (ms): 147 AR Interval (ms): 217 VA Conduction: | | | Mode Switch Events: 0 % of time: 0 -HVAC JOURNEYMAN: <0.1% AP-HVAC JOURNEYMAN: 0.1% -VS: | | | 23.8% AP-VS: 76.1% HVAC JOURNEYMAN: Magnetic Rate: 85 LINDA: 65 LEAH: Current [...] Electronically | | | signed by: Kailey Pruitt, [place] 03/07/2014 12:00 | | + + + + + | Procedure Note | + + | Kailey Pruitt RN - 03/07/2014 12:01 PM PDT Formatting of this note might be | | different from the original. DEVICE INTERROGATIONName: Moe Sanchez | | Date: March 07, 2014DOB: 1960 Cook [employer]: Kailey Pruitt RN Device | | Shredding Machine Operator:[employer] Sense (mV) Impedance (?) Capture (V) Capture (ms) A Lead >5.60 | | 402 1.500 0.09 RV Lead >31.36 522 2.00 0.09 LV Lead Battery Impedance (?): 528 | | Battery Voltage (V): 2.79 LA Interval (ms): 147 AR Interval (ms): 217 VA Conduction: | | Mode Switch Events: 0 % of time: 0 -HVAC JOURNEYMAN: <0.1% AP-HVAC JOURNEYMAN: 0.1% -VS: 23.8% AP-VS: 76.1% | | HVAC JOURNEYMAN: Magnetic Rate: 85 LINDA: 65 LEAH: Current [...]
--- OUTSIDE RECORDS SUMMARY | ~2019-11-01 | XMS | Encounter Summary ---
Demographics + + + | Address | [address] | | | [place] [address] | + + + | Home Phone [...] Team Providers + +------+ + | Care Survey Methodologist Name | Role | Phone | + [...] | | | | CENTER [address] | [address] [place] | | | | | [place], [place] | [place] [address] | | | | | [address] | [phone] | | | | | [phone] | | | +--------+ + + + [...] sent through Care Everywhere.Diarrhea, Unkno wn Cause (Kazakh)documented in this encounter Medications at Time of [...] + + + +---------+ + + | Vaughan-3 Fatty | CAPS, one capsule by | [...] | | | | | | | [place] coronary | | | | | | | artery of [place] | | | | | | | [...] | 11/09/ | Office | Cardiology | [place], | | | 2018 | Visit | | PARISA [place] [address] | | | | | | [place], | | | | | | [place] [address] | | | | | | [phone] | | | | | | | | +--------+ + + + + | 11/20/ | Implant | Cardiology | Daljit Singletary, | Remote Device | | 2018 | Monitor | | [address] | Interrogation | | | | | [place], | (Primary Dx); | | | | | [place] [address] | Presence of | | | | | [phone] | permanent cardiac | | | | [...] W?MRN: | | | | | | [id number] | | | [id number] | | | riteri | | | [...] | | | St. | | | [place] | | | y | | | [...] | | | St. | | | [place] | | | y | | | [...] | | | St. | | | [place] | | | y H. | | [...] | | | St. | | | [place] | | | y H. | | [...] | | | M.D. | | | Aerodynamics Engineer | | | al | | | [...] | | | ent/60 | | | [id number] | | | -[id number]- | | | [...] | | | Lavender | | | [facility] | | | Top Tube | [...] [address] | [place] | [phone] | | [facility] | | [address] | | | - LABORATORY | | [...] [address] | [place] | [phone] | | [facility] | | [address] | | | - LABORATORY | | [...] + | [facility] | [address] | [place] | [phone] | | [facility] | | [address] | | | - LABORATORY | | [...] + | [facility] | [address] | [place] | [phone] | | [facility] | | [address] | | | - LABORATORY | | [...] [address] | [place] | [phone] | | [facility] | | [address] | | | - LABORATORY | | [...] 10 | 9 - 23 mg/dL | [facility] | | | | | | [facility] | | | | | | MEDICAL | | | | | | CENTER - | | | | | | LABORATORY | | + + + + + + | Creatinine | 0.96 | 0.70 - 1.30 | [facility] | | | | | mg/dL | [facility] | | | | | | MEDICAL | | | | | | CENTER - | | | | | | LABORATORY | | + + + + + + | eGFR if not | >60Comment: GLOMERULAR | >=60 | [facility] | | | | FILTRATION | mL/min/1.73m2 | [facility] | | | PUERTO RICAN | RATE,ESTIMATED | | MEDICAL | | | | mL/min/1.86j3Fvjg than | | CENTER - | | [...] [address] | [place] | [phone] | | [facility] | | [address] | | | - LABORATORY | | [...] [address] | [place] | [phone] | | [facility] | | [address] | | | - LABORATORY | | [...] - 1.030 | [facility] | | | [place] | | | [facility] | | [...] ST. | [address] | [place], [place] | [phone] | | [facility] | | [address] | | | - LABORATORY | | [...]
--- OUTSIDE RECORDS SUMMARY | ~2019-11-01 | XMS | Encounter Summary ---
Demographics + + + | Address | [address] | | | [place] [address] | + + + | Home Phone [...] Providers + +------+ + | Care Geothermal Operations Manager Name | Role | Phone [...] 2019 | | GASTROENTEROLOGY | [address], [place] | | | | | [address] [place] | [address] [place], [place] | | | | | [address] [place], [place] | [address] | | | | | [address] | | | | | | [phone] | | | +--------+ + + + [...] W | | | | | | [place], | | | | | | [place] [address] | | | | | | [phone] | | | | | | | | +--------+ + + + + | 11/20/ | Implant | Cardiology | Daljit Singletary, | Remote Device | | 2019 | Monitor | | MD [address] [place] | Interrogation | | | | | [place], | (Primary Dx); | | | | | [place] [address] | Presence of | | | | | [phone] | permanent cardiac | | | | [...]
--- OUTSIDE RECORDS SUMMARY | ~2019-11-01 | XMS | Encounter Summary ---
Demographics + + + | Address | [address] [place] [address] | | | [place] [address] | + + + | Home Phone | | + + + | Preferred Language | Unknown | + + + | Marital Status | | + + + | Tenriism Affiliation | Unknown | + + + | Race | White | + + + | Ethnic Group | Not or | + + + Author + + + | Author | [facility] | + + + | Organization | [facility] | + + + | Address | Unknown | + + + | Phone | Unavailable | + + + Support + + + + + | Name | Relationship | Address | Phone | + + + + + | Rachel Valencia | [address] | [place] | | | | | [address] | | + + + + + Care Team Providers + +------+ + | Care Compliance Engineer Products Name | Role | Phone | + [...] | | [facility] | | | | [place], [place] | | | | | | [address] | | | | | | [phone] | | | +--------+------+ + + + [...] Way Lab) | [facility] | | [facility] [place] [address] | REGIONAL | | [place] [address] | LABORATORY | + + + + + + + + | Performing | Address | City/State/Zipcode | Phone Number | | Organization | | | | + + + + + | [facility] | [address] | [place] [address] | | | LABORATORY | | | [...] ([address] [facility]) | | | [facility] [address] | | | [place] [address] | | + + + + + + + + | Performing | Address | City/State/Zipcode | Phone Number | | Organization | | | | + + + + + | [facility] | [address] | [place] [address] | | | LABORATORY | | | [...] | | | DEPARTMENT | | | [place] | | | OF | | | [...] DEPARTMENT OF | [address] | [place] [address] | | | PATHOLOGY | [address] | | | + + + + + documented in this encounter Visit Diagnoses + + | Diagnosis | + + | Chest pain Chest pain, unspecified | + + | Bradycardia Other specified cardiac dysrhythmias | + + documented in this encounter"
--- OUTSIDE RECORDS SUMMARY | ~2019-11-01 | XMS | Encounter Summary ---
Demographics + + + | Address | [address] | | | [place] [address] | + + + | Home Phone [...] Team Providers + +------+ + | Care Stucco Mason Name | Role | Phone | + [...] [place], | | | | | | [place] [address] | | | | | | [phone] | | | +--------+ + + + [...] [place], | | | | | | [place] [address] | | | | | | [phone] | | | | | | | | +--------+ + + + + | 11/20/ | Implant | Cardiology | Daljit Singletary, | Remote Device | | 2019 | Monitor | | [address] [facility] | Interrogation | | | | | [place], | (Primary Dx); | | | | | [place] [address] | Presence of | | | | | [phone] | permanent cardiac | | | | [...]
--- OUTSIDE RECORDS SUMMARY | ~2019-11-01 | XMS | Encounter Summary ---
Demographics + + + | Address | [address] | | | [place] [address] | + + + | Home Phone [...] Providers + +------+ + | Care Pulp Making Plant Operator Name | Role | Phone [...] W | | | | | [place], | [place], | | | | | [place] [address] | [place] [address] | | | | | [phone] | [phone] | | | | | | | [...] | | | | | | [place], | | | | | | [place] [address] | | | | | | [phone] | | | | | | | | +--------+ + + + + | 11/20/ | Implant | Cardiology | Daljit Singletary, | Remote Device | | 2018 | Monitor | | [address] | Interrogation | | | | | [place], | (Primary Dx); | | | | | [place] [address] | Presence of | | | | | [phone] | permanent cardiac | | | | [...]
--- OUTSIDE RECORDS SUMMARY | ~2019-11-01 | XMS | Encounter Summary ---
Demographics + + + | Address | [address] | | | [place] [address] | + + + | Home Phone [...] Team Providers + +------+ + | Care Cardiac Nurse Practitioner Name | Role | Phone [...] | Radiology | Diagnoses | Gemini | Brai Blake | | | | | | MD Daljit | Imaging [address] | | | | | Palpitations | [address] [place] | | | | | Procedures | [address] | [address] [place] | | | | | ECHO | [place], | [place], [place] | | | | | Complete | [place] [address] | [address] | | | | | | Phone: | Phone: | | | | | | [phone] | [phone] | | | | | | Fax: | Fax: | | | | | | [phone] | [phone] | +--------+--------+ + + + + Encounter Details +--------+ + + + + | Date | Type | Department | Care Team | Description | +--------+ + + + + | 12/30/ | Hospital | [facility] | TimmyshaistateshaShaistatimmy, | Palpitations | | 2012 - | Encounter | MED CTR XRAY [address] | MD [address] | | | | | [place] | [facility], | | | 01/01/ | | [place] [address] | [place] [address] | | | 2012 | | [phone] | [phone] | | | | | | | [...] + + + +---------+ + + | Corona-3 Fatty | CAPS, one capsule by | [...] | | | | | | [place] [address] | | | | | | [phone] | | | | | | | | +--------+ + + + + | 11/20/ | Implant | Cardiology | Daljit Singletary, | Remote Device | | 2019 | Monitor | | [address] [place] | Interrogation | | | | | [place], | (Primary Dx); | | | | | [place] [address] | Presence of | | | | | [phone] | permanent cardiac | | | | [...] At | + + + | [facility] | [place] | | Department [address] | [facility] | | [ rep ct street[address]] [ rep ct [facility] | | st zip] Signed | - IMAGING | | | | | Patient Name: MOE GAY W | | | Physician: MIGUELINA : 1960 Age: 52 Sex: M Unit | | | #: [id number] Exam Date: 12/30/12 Location: | | | G Report #: [id number] Page: | | | %(RAD)RES..mtdd.print.filter("pg") of %(RAD) | | | RES..mtdd.print.filter("tpg") | | | | | | Accession Number: [id number] | | | E C H O C A R D I O G R A P H Y R E P O R T | | | HEIGHT: 76" WEIGHT: 270# | | | SAP ABAP PROGRAMMER: JAMEEL REFERRING DR: TIMMY DRAKE DR: | [...] | | | Transcribed Date/Time: 12/30/2012 16:34 Hospital Mortician: | | | <<Signature on File>> | | | Daljit | | | MD CLEOPATRA Singletary FASE01/02/13 0955 <Electronically signed by | | | Daljit Singletary MD, [facility], FACP, FASE, FASNC> Rashadong | | | MD CLEOPATRA Singletary 12/30/12 1608 Hospital Mortician: [place] [employer] | | | Idutoalcopugo56/08/13 1634 Daljit Singletary MD FACC | | | FASE | | + + + + + + + + | Performing | Address | City/State/Zipcode | Phone Number | | Organization | | | | + + + + + | [facility] | [address] | [place] | [phone] | | [facility] | | [address] | | | - IMAGING | | | | + + + + + documented in this encounter Visit Diagnoses + + | Diagnosis | + + | Palpitations | + + documented in this encounter
--- OUTSIDE RECORDS SUMMARY | ~2019-11-01 | XMS | Encounter Summary ---
Demographics + + + | Address | [address] | | | [place] [address] | + + + | Home Phone [...] Team Providers + +------+ + | Care Aerosol Supervisor Name | Role | Phone | [...] CARDIOLOGY [address] | MD [place] | reprogramming/check | | | | [place], | [place], | DO NOT DELETE | | | | [place] [address] | [place] [address] | (Primary Dx); | | | | [phone] | [phone] | Pacemaker - | | | | [...] | | | | | | [place] [address] | | | | | | [phone] | | | | | | | | +--------+ + + + + | 11/20/ | Implant | Cardiology | Daljit Singletary, | Remote Device | | 2019 | Monitor | | [address] [facility] | Interrogation | | | | | [place], | (Primary Dx); | | | | | [place] [address] | Presence of | | | | | [phone] | permanent cardiac | | | | [...]
--- OUTSIDE RECORDS SUMMARY | ~2019-11-01 | XMS | Encounter Summary ---
Demographics + + + | Address | [address] | | | [place] [address] | + + + | Home Phone [...] Team Providers + +------+ + | Care Molded Rubber Goods Cutter Name | Role | Phone | [...] [address] | | | | | [place], | [place], | | | | | [place] [address] | [place] [address] | | | | | [phone] | | | | | | | [...] | | | | | | [place] [address] | | | | | | [phone] | | | | | | | | +--------+ + + + + | 11/20/ | Implant | Cardiology | Daljit Singletary, | Remote Device | | 2018 | Monitor | | [address] [place] | Interrogation | | | | | [place], | (Primary Dx); | | | | | [place] [address] | Presence of | | | | | [phone] | permanent cardiac | | | | [...]
--- OUTSIDE RECORDS SUMMARY | ~2019-11-01 | XMS | Encounter Summary ---
Demographics + + + | Address | [address] | | | [place] [address] | + + + | Home Phone [...] Providers + +------+ + | Care Supervisor Agricultural Education Name | Role | Phone | [...] | SR | | | | | [phone] | | | +--------+ + + + [...] | | | | | | [place] [address] | | | | | | [phone] | | | | | | | | +--------+ + + + + | 11/20/ | Implant | Cardiology | Daljit Singletary, | Remote Device | | 2019 | Monitor | | [place] [address] [facility] | Interrogation | | | | | [place], | (Primary Dx); | | | | | [place] [address] | Presence of | | | | | [phone] | permanent cardiac | | | | [...]
--- OUTSIDE RECORDS SUMMARY | ~2019-11-01 | XMS | Encounter Summary ---
Demographics + + + | Address | [address] | | | [place] [address] | + + + | Home Phone [...] Team Providers + +------+ + | Care Noodle Maker Name | Role | Phone | + +------+ + | Kirk French MD | PCP | | + +------+ + Encounter Details +--------+ + + + + | Date | Type | Department | Care Team | Description | +--------+ + + + + | 12/24/ | Anesthesia | [facility] | Jarett Barakat | | | 2018 | Event | MED CTR MP INTRA OP | P, MD [address] | | | | | [address] | [address] [place], [place] | | | | | [place], [place] | [address] | | | | | [address] | [phone] | | | | | [phone] | | | | | | | Arthur [place], | | | | | | [address] | | | | | | [place], [place] | | | | | | [address] | | | | | | | [...] 12/24/17 1435 by | | eral | moul-efn-meabpc catheter system; | Desmond Teresa RN | [...] W | | | | | | [place], | | | | | | [place] [address] | | | | | | [phone] | | | | | | | | +--------+ + + + + | 11/20/ | Implant | Cardiology | Daljit Singletary, | Remote Device | | 2018 | Monitor | | [facility] | Interrogation | | | | | [place], | (Primary Dx); | | | | | [place] [address] | Presence of | | | | | [phone] | permanent cardiac | | | | [...]
--- OUTSIDE RECORDS SUMMARY | ~2019-11-01 | XMS | Encounter Summary ---
Demographics + + + | Address | [address] | | | [place] [address] | + + + | Home Phone [...] Providers + +------+ + | Care Manager Utilization Name | Role | Phone | + [...] + + | 12/29/ | Office | [facility] | Silvia, | Ascending thoracic | | 2017 | Visit | CARDIOLOGY [address] | PARISA [place] [address] | aortic aneurysm | | | | [place], | [place], | (HCC) (Primary Dx); | | | | [place] [address] | [place] [address] | Coronary artery | | | | [phone] | [phone] | disease involving | | | | | | [place]ie coronary | | | | | | artery of [place] | | | | | | heart [...] of non-critical coronary artery d isease involving [place] coronary artery of [place] heart without angina pectoris, essential h ypertension, [...] start Losartan 25 mg once every day, [facility] blood pressure log, and follow up in 3 months. Since that time, he went to the ER in [facility] with chest pain at the end of [...] Preventative health care Coronary artery disease involving [place] coronary artery of [place] heart without angina pectoris Cannabis abuse, daily [...] 3RD DOSE, CALL 911 100 tablet 3 [place]-3 Fatty Acids (SALMON OIL-1000 PO) CAPS, one capsule by mouth daily twice daily ONE TOUCH DELICA LANCETS [facility] Check glucose as needed for [...] was found Confirmed by SYDNI SINGLETARY MD ([id number]) on 06/23/2016 2:08:15 PM LAB RESULTS reviewed during visit today primarily from [facility]: LIPID Lab Results Component Value Date TRIG [...] PLTEX 129* 05/12/2016 I reviewed records from [facility] for office visit on 09/01/2016 which is summarized in the HPI. Above data and testing is reviewed this visit; testing below is historical data unless othe rwise specified. ASSESSMENT: 1. Essential hypertension with goal blood pressure less than 130/80: A. Today he states that he has been doing well. He only used the [place] ajzmin for a month then he quit and his blood pressure has been normal. He has lost 14 lbs si nce his last appointment and he has been dieting and exercising. He is in class I of the [place] 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 On physical examination there are no signs of fl uid overload. 2. Non-critical Coronary artery disease involving [place] coronary a rtery of [place] heart without angina pectoris: A. Normal exercise [...] ventricular arrhythmia performed by Dr. Gambino at [facility] on 01/30/2013. Patient had spontaneous PVCs [...] to go back in 3 days to [place] for an attempt of ablation under general [...] is a normal stable device function. [employer] ng battery longevity is 5 years.. 5. [...] this chart may have been created with [employer] voice recognition software. Occasi onal wrong-word or [...] | | | | | | [place], | | | | | | [place] [address] | | | | | | [phone] | | | | | | | | +--------+ + + + + | 11/20/ | Implant | Cardiology | Sydni Singletary, | Remote Device | | 2019 | Monitor | | MD [address] | Interrogation | | | | | [place], | (Primary Dx); | | | | | [place] [address] | Presence of | | | | | [phone] | permanent cardiac | | | | [...] + + | Coronary artery disease involving o[place]inkie coronary artery of ouzinkie heart without | | angina pectoris | + + | Essential hypertension with goal blood pressure less than 130/80 | + + | Hyperlipidemia, mixed Mixed hyperlipidemia | + + documented in this encounter
--- OUTSIDE RECORDS SUMMARY | ~2019-11-01 | XMS | Encounter Summary ---
Demographics + + + | Address | [address] | | | [place] [address] | + + + | Home Phone [...] Team Providers + +------+ + | Care Turner And Former Automatic Name | Role | Phone | [...] 2015 | | CARDIOLOGY [address] | FIBERGLASS BOAT FINISHER [address] | | | | | [place], | [place], [place] | | | | | [place] [address] | [address] | | | | | [phone] | | | +--------+--------+ + + + [...] W | | | | | | [place], | | | | | | [place] [address] | | | | | | [phone] | | | | | | | | +--------+ + + + + | 11/20/ | Implant | Cardiology | Daljit Singletary, | Remote Device | | 2018 | Monitor | | [address] | Interrogation | | | | | [place], | (Primary Dx); | | | | | [place] [address] | Presence of | | | | | [phone] | permanent cardiac | | | | [...]
--- OUTSIDE RECORDS SUMMARY | ~2019-11-01 | XMS | Encounter Summary ---
Demographics + + + | Address | [address] | | | [place] [address] | + + + | Home Phone [...] Providers + +------+ + | Care County Adviser Name | Role | Phone | + +------+ + | Kirk French MD | PCP | | + +------+ + Reason for Visit + + + | Reason | Comments | + + + | New Patient | kidney stones | + + + Encounter Details +--------+---------+ + + + | Date | Type | Department | Care Team | Description | +--------+---------+ + + + | 04/07/ | Office | [facility] | Matthew Uriarte | Left ureteral | | 2019 | Visit | [address] | MD Tawanna [address] | calculus (Primary | | | | [place], [place] | [place], [place] | Dx); Kidney stones | | | | [address] | [address] | | | | | [phone] | | | +--------+---------+ + + + [...] + + + | Blood Pressure | 138/86 | 04/07/2019 9:26 AM | | | | | PDT | | + + + + + | Pulse | 62 | 04/07/2019 9:26 AM | | | | | PDT | | + + + + + | Temperature | - | - | | + + + + + | Respiratory Rate | 17 | 04/07/2019 9:26 AM | | | | | PDT | | + + + + + | Oxygen Saturation | - | - | | + + + + + | Inhaled Oxygen | - | - | | | Concentration | | | | + + + + + | Weight | 106.8 kg (235 lb 7.2 | 04/07/2019 9:26 AM | | | | oz) | PDT | | + + + + + | Height | 193 cm (6' 4") | 04/07/2019 9:26 AM | | | | | PDT | | + + + + + | Body Mass Index | 28.66 | 04/07/2019 9:26 AM | | | [...] this encounter Patient Instructions Patient Instructions Vidhi Gonzales RN - 04/07/2019 9:45 AM PDTPreoperative Instructi ons Your surgery with Dr. Matthew Uriarte has been scheduled for April 13, 2019 at 7:45 AM at [facility]. Please report to the [facility] no later than 6:15 AM. REMEMBER: NOTHING TO EAT OR DRINK AFTER MIDNIGHT April 12, 2019. NO FISH OIL, ASPIRIN OR ASPIRIN PRODUCTS ONE WEEK PRIOR TO SURGERY. Tylenol and Advil are OK. You will need to get the following testing done prior to surgery: CBC, BMP YOU WILL NEED TO BRING A TAPING SUPERVISOR WITH YOU THE DAY OF SURGERY. Call us at [phone] with any questions. [] Pain management booklet provided to patient. documented in this encounter Progress Notes Matthew Uriarte MD - 04/07/2019 9:45 AM PDTFormatting of this note might be differ ent from the original. Chief Complaint Patient presents with New Patient kidney stones HPI Moe Sanchez is a 59 y.o. male patient of Kirk French MD here today fo r evaluation of kidney stones. Last week starting have left sided abdominal and testicle pain. Pain became progressively worse and was associated with nausea and vomiting. He fainted due to the pain and presented to the ED, where a CT scan was performed and showed a distal 7mm stone on the left. Today continues to have left sided abdominal and testicle pain. Pain is intermittent. Chet jenkins has improved somewhat Yesterday he reports passing a stone, but states the stone was only about 3-4 mm in size. Haleigh rodarte continues to have gross hematuria Also complains of frequency and urgency Assessment Moe was seen today for new patient. Diagnoses and all orders for this visit: Left ureteral calculus - CBC with Differential; Future - Basic Metabolic Panel; Future - Case Request - OR/ENDO/ASC/OB: Cystoscopy, Left ureteroscopy with laser lithotripsy, Left ureteral stent placement Kidney stones Plan It is likely patient has a stone fragment in the distal ureter given his persistent symptom s as well as only capturing a 3 to 4 mm stone. Patient also has approximately 7 to 8 mm sto ne in the lower pole of the kidney as well. After discussing the options with the patient i s elected to undergo left-sided ureteroscopy laser lithotripsy and stent. We discussed risk s including pain, bleeding, infection, ureteral injury, ureteral perforation, renal hematoma , bladder injury, urethral stricture and need for further procedures. Past Medical History Past Medical History: Diagnosis Date Abdominal pain, unspecified site 07/17/2011 Anginal pain (HCC) Anxiety depression Back pain Bipolar disorder (HCC) Bladder troubles CAD Cannabis abuse CENTRAL SLEEP APNEA CONDS CLASSIFIED ELSEWHERE 12/15/2010 Chest pain Chronic neck pain Chronic pain syndrome Depression Drug addiction in remission (HCC) heroin Fatigue 09/15/2010 FATTY LIVER DISEASE Fibromyalgia HEPATITIS B Hypercholesterolemia Hyperlipidemia Hypertension Hypoglycemia Insomnia Lower back [...] wasn't treated. 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 Pacemaker; Medtronic Peptic ulcer disease Premature ventricular contraction [facility] care 06/26/2013 LAST PSA:12/16/2010 RESULT:0.14 LAST COLONOSCOPY:02/05/2009 [...] CV LHC; Surgeon: Daljit Singletary MD; Location: [facility] CV LAB CARDIAC CATHERIZATION N/A 01/25/2019 Procedure: CV Cor Angio; Surgeon: Daljit Singletary MD; Location: [facility] CV LAB COLONOSCOPY N/A 12/24/2017 Procedure: COLONOSCOPY; Surgeon: Emmanuel Daniel MD; Location: [facility] MEDICAL PROCEDURE UNIT COLONOSCOPY N/A 01/05/2019 Procedure: COLONOSCOPY; Surgeon: Emmanuel Daniel MD; Location: [facility] MEDICAL PROCEDURE UNIT EGD 12/24/2017 HARDWARE [...] Procedure: EGD; Surgeon: Emmanuel Daniel MD; Location: [facility] MEDICAL PROCEDURE UNIT UPPER GASTROINTESTINAL ENDOSCOPY N/A 01/05/2019 Procedure: EGD; Surgeon: Emmanuel Daniel MD; Location: [facility] MEDICAL PROCEDURE UNIT VASECTOMY Family History: Family History Problem Relation [...] Last attempt to quit: 11/22/2012 Years since quittin.3 Smokeless tobacco: Never Used Tobacco comment: 1 cigar twice a year for 30 (when he went fishing) Previous quit date 02/12/1996. Substance and Sexual Activity Alcohol use: Yes Alcohol/week: 4.2 oz Types: 7 Shots of [...] Andreia in own home Allergies Allergen Reactions Clarithromycin Palpitations Rapid heartbeat [...] and grumpiness Penicillins Rash Tramadol Hcl Itching Medications: Current Outpatient Medications: acyclovir (ZOVIRAX) 5% ointment, Apply 1 Application topically every 3 hours., Disp: , Rfl: amLODIPine (NORVASC) 5 mg tablet, Take 1 [...] Take 0.5 mg by mouth 3 times daily., Disp: , Rfl: dicyclomine (BENTYL) 20 MG tablet, Take 1 tablet by mouth 3 times daily as needed. Bef ore meals, Disp: 30 tablet, Rfl: 1 diphenhydrAMINE (BENADRYL) 25 MG capsule, Take 25 mg by mouth as needed., Disp: , Rfl: diphenoxylate-atropine (LOMOTIL) 2.5-0.025 mg per tablet, Take 1 tablet by mouth 4 gwen es daily as needed for Diarrhea., Disp: , Rfl: Glucose Blood (BLOOD GLUCOSE TEST STRIPS) STRP, Test up to 1 times a day as needed ( O ne touch ), Disp: , Rfl: loperamide (IMODIUM A-D) 2 MG tablet, Take 4 mg by mouth., Disp: , Rfl: Methylsulfonylmethane (MSM) 1000 MG TABS, Take One time daily., Disp: , Rfl: metoprolol succinate (TOPROL-XL) 100 mg ER tablet, TAKE ONE TABLET BY MOUTH EVERY DAY, Disp: 90 tablet, Rfl: 3 [facility] Natural Products (OSTEO BI-FLEX/5-LOXIN ADVANCED PO), Take by mouth. Takes 2 tab lets in the morning and 2 tablets at night, Disp: , Rfl: Multiple Vitamins-Minerals (CENTRUM SILVER PO), Take 1 tablet by mouth Daily., Disp: , Rfl: Nattokinase 100 MG CAPS, Take by mouth 2 (two) times daily., Disp: , Rfl: NITROSTAT 0.4 MG SL tablet, place 1 tablet under the tongue if needed for chest pain m ay repeat every 5 minutes UP TO 3 DOSES; IF NO RELIEF AFTER 3RD DOSE, CALL 911, Disp: 100 ta blet, Rfl: 3 [place]-3 Fatty Acids (SALMON OIL-1000 PO), CAPS, one capsule by mouth daily twice daily , Disp: , Rfl: ondansetron (ZOFRAN ODT) 4 mg disintegrating tablet, Take 4 mg by mouth., Disp: , Rfl: ONE TOUCH DELICA LANCETS [facility], Check glucose as needed for hypoglycemia, Disp: 100 eac h, Rfl: 3 rOPINIrole (REQUIP) 1 mg tablet, Take 1 tablet by mouth nightly., Disp: , Rfl: 0 sertraline (ZOLOFT) 50 mg tablet, Take 100 mg by mouth Daily., Disp: , Rfl: UNABLE TO FIND, Med Name: Pure CBD Tincture, 100 mg at night CBD ultra Concentrated He mp oil for anxiety as needed CBD anti-inflammatory topical cream TID, Disp: , Rfl: UNABLE TO FIND, Take 1 tablet by mouth Daily. MARINE-D3, Disp: , Rfl: UNCODED MEDICATION, Diagnosis: Obstructive Sleep Apnea ICD-9: 327.23 Length of Need: 9 9 Months, Disp: 1 Device, Rfl: 0 valACYclovir (VALTREX) 1 g tablet, Take 1,000 mg by mouth 2 times daily., Disp: , Rfl: 1 ROS Objective BP 138/86 | Pulse 62 | Resp 17 | Ht 1.93 m (6' 4") | Wt 106.8 kg (235 lb 7.2 oz) | BMI 28.66 kg/m General Appearance: Alert, cooperative, no distress, appears stated age Head: Normocephalic, without obvious abnormality, atraumatic Eyes: conjunctiva/corneas clear, EOM's intact Throat: Lips, mucosa, and tongue normal; no gross deformities, mmm Neck: Supple, symmetrical, no adenopathy Lungs: Regular, unlabored breathing MS Left sided CVA tenderness, no spinal tenderness, no scoliosis present Abdomen: Soft, non-tender, no masses Extremities: Extremities normal, atraumatic, no cyanosis, clubbing, or edema Pulses: Radial pulses 2+ and symmetric Skin: Warm and dry Lymph nodes: Cervical and supraclavicular nodes normal Neurologic: Gait normal, CN 2-12 grossly intact; [...] or performed during the hospital encounter of 01/25/19 CV Cardiac Procedure Result Value Ref Range LVEF-LVGRAM CARDIAC CATH 75 % Lab Results Component Value Date CREA 0.96 01/02/2019 Kirk French MD's notes were reviewed in clinic today. No follow-ups on file.. This document was generated in part using voice recognition software. Frequent wrong word or sound-alike substitutions may have occurred due to the inherent limitations of the voice recognition software. Although I have attempted to edit the content, I have not thoroughly proofread this note, and blind hanger errors are very likely to occur. CC: [...] W | | | | | | [place], | | | | | | [place] [address] | | | | | | [phone] | | | | | | | | +--------+ + + + + | 11/20/ | Implant | Cardiology | Daljit Singletary, | Remote Device | | 2018 | Monitor | | MD [address] [place] | Interrogation | | | | | [place], | (Primary Dx); | | | | | [place] [address] | Presence of | | | | | [phone] | permanent cardiac | | | | [...] CBC with | Lab | Routin | Left ureteral | 1 Occurrences | | Differential | | e | calculus | starting 04/07/2019 | | | | | | until 04/06/2020 | + +------+--------+ + + | Basic Metabolic | Lab | Routin | Left ureteral | 1 Occurrences | | Panel | | e | calculus | starting 04/07/2019 | | | | | | until 04/06/2020 | + +------+--------+ + + documented as of this encounter Visit Diagnoses + + | Diagnosis | + + | Left ureteral calculus - Primary Calculus of ureter | + + | Kidney stones Calculus of kidney | + + documented in this encounter
--- OUTSIDE RECORDS SUMMARY | ~2019-11-01 | XMS | Encounter Summary ---
Demographics + + + | Address | [address] | | | [place] [address] | + + + | Home Phone [...] Providers + +------+ + | Care Party Coordinator Name | Role | Phone | + +------+ + | Kirk French MD | PCP | | + +------+ + Encounter Details +--------+ + + + + | Date | Type | Department | Care Team | Description | +--------+ + + + + | 10/25/ | Hospital | [facility] | Kirk French | Chronic pain | | 2017 | Encounter | MED CTR ULTRASOUND | MD Brea Eva LORA | disorder; Stomach | | | | [address] [place] | [address] | ache; Obesity, | | | | [place], [place] | [place] [address] | unspecified | | | | [address] | [phone] | classification, | | | | [phone] | | unspecified obesity | | | [...] + + +---------+ + + | [place]-3 Fatty | CAPS, one capsule by | [...] W | | | | | | [place], | | | | | | [place] [address] | | | | | | [phone] | | | | | | | | +--------+ + + + + | 11/20/ | Implant | Cardiology | Daljit Singletary, | Remote Device | | 2018 | Monitor | | [address] [facility] | Interrogation | | | | | [place], | (Primary Dx); | | | | | [place] [address] | Presence of | | | | | [phone] | permanent cardiac | | | | [...]
--- OUTSIDE RECORDS SUMMARY | ~2019-11-01 | XMS | Encounter Summary ---
Demographics + + + | Address | [address] [place] [address] | | | [place] [address] | + + + | Home Phone [...] [place] | | | | | [address] | | + + + + + Care Team Providers + +------+ + | Care Planer Setter Name | Role | Phone | [...] | | | | | TRANSTHORACI | [place], [place] | for Health | | | | | C | [address] | and Healing, | | | | | ECHOCARDIOGR | Phone: | Building 1 | | | | | AM, ADULT | [phone] | [place], [place] | | | | | | Fax: | [address] | | | | | | [phone] | Phone: | | | | | | | [phone] | +--------+--------+ + + + + Reason [...] | | | | | | | [place] [address] | | | | | | | Phone: | | | | | | | [phone] | | | | | | | Fax: | | | | | | | [phone] | | +--------+--------+ + + + + Encounter Details +--------+---------+ + + + | Date | Type | Department | Care Team | Description | +--------+---------+ + + + | 02/03/ | Office | Cardiology General | Arlette Drew, | Chest pain (Primary | | 2010 | Visit | at [facility] [address] | MD | Dx); Bradycardia; | | | | [address] Mailcode: | | Pacemaker | | | | [address] [facility] | | | | | | Health and Healing, | | | | | | | | | | | | Floor [place], [place] | | | | | | [address] | | | | | | [phone] | | | +--------+---------+ + + + [...] per Dr. Drew's note. Farooq Jamil DO Portfolio Analyst Clinical shoe repairman/ Division of Cardiovascular Medicine Yajaira Borges, [place] - 02/09/2011 12:59 PM PDT PACEMAKER HISTORY Primary Care Provider: Darion Holden DO Physical Sciences Professor: Arlette Drew MD Moe Sanchez is a [...] chamber permanent pacemaker implantation on 06/14/09 in [place], Chronic smoker, mild DIDIER, bip olar disorder with anxiety who presents for second opinion regarding his syncopal episodes. Pt. started noticing dizzy spells and episodes of syncope about 3 years ago , pacemaker was put at the recommendation of Physical Sciences Professor Dr. Singletary from [place]. [place]. Pt. states lala bhatti was put>1 [...] form tilt table testing but NA at [facility] May need to involve endocrine and [...] Dr. Omero DREW MD CARDIOLOGY - GENERAL [address] Mailcode: Ch9a [facility], 9th Floor [facility] [address] documented in this en counter [...] ([facility] [facility]) | [facility] | | [facility] [address] [place] [facility] | REGIONAL | | [place] [address] | LABORATORY | + + + + + + + + | Performing | Address | City/State/Zipcode | Phone Number | | Organization | | | | + + + + + | [facility] | [address] | [place] [address] | | | LABORATORY | | | [...] RLB ([facility] [facility]) | | | [facility] [place] [address] | | | [place] [address] | | + + + + + + + + | Performing | Address | City/State/Zipcode | Phone Number | | Organization | | | | + + + + + | [facility] | [address] | [place] [address] | | | LABORATORY | | | [...] | | | DEPARTMENT | | | [facility] | | | OF | | | [...] | + + + + + | [facility] DEPARTMENT | [address] | [place] [address] | | | PATHOLOGY | [address] [...] DEPT OF | [address] | [place], [place] | | | CARDIOLOGY | [address] | [address] | | + + + + + [...] DEPT OF | [address] | [place], [place] | | | CARDIOLOGY | [address] | [address] | | + + + + + [...] + + + | Please click | [facility] DEPT OF | | on view image for the detailed interpretation from SiOx results. | CARDIOLOGY | + + + + + + + + | Performing | Address | City/State/Zipcode | Phone Number | | Organization | | | | + + + + + | [facility] DEPT OF | [address] | [place], [place] | | | CARDIOLOGY | [address] | [address] | | + + + + + documented in this encounter Visit Diagnoses + + | Diagnosis | + + | Chest pain - Primary Chest pain, unspecified | + + | Bradycardia Other specified cardiac dysrhythmias | + + | Pacemaker Cardiac pacemaker in situ | + + documented in this encounter
--- OUTSIDE RECORDS SUMMARY | ~2019-11-01 | XMS | Encounter Summary ---
Demographics + + + | Address | [address] | | | [place] [address] | + + + | Home Phone [...] Team Providers + +------+ + | Care Client Resolution Specialist Name | Role | Phone | [...] CARDIOLOGY [address] | MD [address] | Dx); SINUS | | | | [place], | [place], | [place] | | | | [place] [address] | [place] [address] | | | | | [phone] | [phone] | | | | | | | [...] | | | | | | [place] [address] | | | | | | [phone] | | | | | | | | +--------+ + + + + | 11/20/ | Implant | Cardiology | Daljit Singletary, | Remote Device | | 2019 | Monitor | | [facility] | Interrogation | | | | | [place], | (Primary Dx); | | | | | [place] [address] | Presence of | | | | | [phone] | permanent cardiac | | | | [...]
--- OUTSIDE RECORDS SUMMARY | ~2019-11-01 | XMS | Encounter Summary ---
Demographics + + + | Address | [address] | | | [place] [address] | + + + | Home Phone [...] Team Providers + +------+ + | Care Law Librarian Name | Role | Phone | [...] 2019 | | GASTROENTEROLOGY | [address], [place] | | | | | [address] [place] | [address] [place], [place] | | | | | [address] [place], [place] | [address] | | | | | [address] | | | | | | [phone] | | | +--------+ + + + [...] | | | | | | [place] [address] | | | | | | [phone] | | | | | | | | +--------+ + + + + | 11/20/ | Implant | Cardiology | Daljit Singletary, | Remote Device | | 2018 | Monitor | | MD [address] | Interrogation | | | | | [address] [place], | (Primary Dx); | | | | | [place] [address] | Presence of | | | | | [phone] | permanent cardiac | | | | [...]
--- OUTSIDE RECORDS SUMMARY | ~2019-11-01 | XMS | Encounter Summary ---
Demographics + + + | Address | [address] | | | [place] [address] | + + + | Home Phone [...] Providers + +------+ + | Care Medical Laboratory Technician Name | Role | Phone [...] Provider Unknown | | | | | [place], [place] | [phone] | | | | | [address] | | | | | | [phone] | | | +--------+ + + + [...] + + + +---------+ + + | [place]-3 Fatty | CAPS, one capsule by | [...] | | | | | | | #[id number], exp 07/2016 | | | | | [...] | | | | | | [place] [id number] | | | | | | [phone] | | | | | | | | +--------+ + + + + | 11/20/ | Implant | Cardiology | Daljit Singletary, | Remote Device | | 2018 | Monitor | | MD [address] | Interrogation | | | | | [place], | (Primary Dx); | | | | | [place] [id number] | Presence of | | | | | [phone] | permanent cardiac | | | | [...]
--- OUTSIDE RECORDS SUMMARY | ~2019-11-01 | XMS | Encounter Summary ---
Demographics + + + | Address | [address] | | | [place] [address] | + + + | Home Phone [...] Providers + +------+ + | Care Last Trimmer Name | Role | Phone | [...] | MED CTR EXTERNAL | MD Sawyer [address] | | | | | IMAGING | Jay THORPE | | | | | [phone] | [place] [address] | | +--------+ + + + + [...] W | | | | | | [place], | | | | | | [place] [address] | | | | | | [phone] | | | | | | | | +--------+ + + + + | 11/20/ | Implant | Cardiology | Daljit Singletary, | Remote Device | | 2018 | Monitor | | [facility] | Interrogation | | | | | [place], | (Primary Dx); | | | | | [place] [address] | Presence of | | | | | [phone] | permanent cardiac | | | | [...]
--- OUTSIDE RECORDS SUMMARY | ~2019-11-01 | XMS | Encounter Summary ---
Demographics + + + | Address | [address] | | | [place] [address] | + + + | Home Phone [...] Providers + +------+ + | Care Floor Waxer Name | Role | Phone | + [...] | | | [place], [place] | [place] [address] | | | | | | [address] | Phone: | | | | | | Phone: | [phone] | | | | | | [phone] | Fax: | | | | | | Fax: | [phone] | | | | | | [phone] | | +--------+ + + + + + Reason for Visit + + + | Reason | Comments | + + + | Medicare Wellness | | + + + Encounter Details +--------+---------+ + + + | Date | Type | Department | Care Team | Description | +--------+---------+ + + + | 07/25/ | Office | [facility] [place] [facility] | Michael Amanda, | Preventative health | | 2014 | Visit | MEDICINE MARRERO | DO [address] | care (Primary Dx); | | | | [address] | [place] | Cannabis abuse, | | | | [place] | [address] | daily use; Urinary | | | | [address] | | frequency; | | | | [phone] | | Incontinence; | | | | [...] needed for Chest pain. 25 tablet 12 [place]-3 Fatty Acids (SALMON OIL-1000 PO) CAPS, one capsule by mouth daily twice daily ONE TOUCH DELICA LANCETS [facility] Check glucose as [...] as Nurse Practitioner (Cardiology) FENG Chou (Physician Colorer Hides And Skins) Current Medicare Suppliers: [facility] - [place], [place] - [address] [place] [address] [facility] - [place], [place] - [address] [place] [address] HEALTH RISK ASSESSMENT: : The patient or [...] no kevin in the usual sections in Superb. documented in this en counter Plan of Treatment +--------+ + + + + | Date | Type | Specialty | Care Team | Description | +--------+ + + + + | 11/09/ | Office | Cardiology | Silvia, | | | 2018 | Visit | | PARISA Vernon [address] | | | | | | [place], | | | | | | [place] [address] | | | | | | [phone] | | | | | | | | +--------+ + + + + | 11/20/ | Implant | Cardiology | Joshcrispincherelle Shaistakenneth, | Remote Device | | 2018 | Monitor | | [address] [facility] | Interrogation | | | | | [place], | (Primary Dx); | | | | | [place] [address] | Presence of | | | | | [phone] | permanent cardiac | | | | [...] - Primary Routine general medical examination at [facility] | | care facility | + [...]
--- OUTSIDE RECORDS SUMMARY | ~2019-11-01 | XMS | Encounter Summary ---
Demographics + + + | Address | [address] | | | [place] [address] | + + + | Home Phone [...] Team Providers + +------+ + | Care Wetlands Technician Name | Role | Phone | [...] + + | 08/31/ | Refill | [facility] | Kirk French | Medication Refill | | 2018 | | [facility] | MD Bre[address] | | | | | [facility]IMARY [facility] [address] | [address] | | | | | [address] | [place] [address] | | | | | [place], [place] | [phone] | | | | | [address] | | | | | | [phone] | | | +--------+--------+ + + + [...] | | | | | | [place] [address] | | | | | | [phone] | | | | | | | | +--------+ + + + + | 11/20/ | Implant | Cardiology | Daljit Singletary, | Remote Device | | 2018 | Monitor | | MD [address]iqu[address] | Interrogation | | | | | [place], | (Primary Dx); | | | | | [place] [address] | Presence of | | | | | [phone] | permanent cardiac | | | | [...]
--- OUTSIDE RECORDS SUMMARY | ~2019-11-01 | XMS | Encounter Summary ---
Demographics + + + | Address | [address] | | | [place] [address] | + + + | Home Phone [...] + +------+ + | Care Concrete Bucket Unloader Name | Role | Phone | [...] | | | | CENTER [address] | [address] | | | | | [place] | [place] | | | | | [address] | [address] | | | | | [phone] | | | +--------+ + + + [...] + + + +---------+ + + | [place]-3 Fatty | CAPS, one capsule by | [...] | | | | | | | chenega coronary | | | | | | | artery of chenega | | | | | | | [...] | | | | | | [place] [address] | | | | | | [phone] | | | | | | | | +--------+ + + + + | 11/20/ | Implant | Cardiology | Daljit Singletary, | Remote Device | | 2018 | Monitor | | [facility] | Interrogation | | | | | [address] [place], | (Primary Dx); | | | | | [place] [address] | Presence of | | | | | [phone] | permanent cardiac | | | | [...] | | | | | | [employer] | | | | | [...] [address] | [place] | [phone] | | [facility] | | [address] | | | - LABORATORY | | [...] + | [address] | [address] | [place] | [phone] | | [facility] | | [address] | | | - LABORATORY | | [...] in | 12 - 53 U/L | [facility] | | | | use as of January 18 | | [facility] | | | | 2018. Check [...] + | [facility] | [address] | [place] | [phone] | | [facility] | | [address] | | | - LABORATORY | | [...] mL/min/1.73m2 | [facility] | | | [place] | RATE,ESTIMATED | | MEDICAL | | | | mL/min/1.61z8Tsbe than | | CENTER - | | [...] ST. | [address] | [place], [place] | [phone] | | [facility] | | [address] | | | - LABORATORY | | [...] | | Immature | | K/uL | [facility] | | | Granulocyte | | [...] + | [address] | [address] | [place] | [phone] | | [facility] | | [address] | | | - LABORATORY | | | | + + + + + B Type Natriuretic Peptide (06/02/2019 7:07 PM PDT) + +-------+ + + + | Component | Value | Ref Range | Performed | Pathologist | | | | | At | Signature | + +-------+ + + + | BNP | 48 | <100 pg/mL | YESSY | | [...] [address] | [place] | [phone] | | [facility] | | [address] | | | - LABORATORY | | [...] | | | | ANGELA MARADIAGA MD ([id number]) | | | | | | on [...] | | | | Starting Wed06/02/19 at 1, | | | | | | | Patient Address: [address] [place] [address] | | | | | | | [place] [address], | | | | | | + + + +------+---+---+ +---+---+ | | | +---+---+ documented in this encounter
--- OUTSIDE RECORDS SUMMARY | ~2019-11-01 | XMS | Encounter Summary ---
Demographics + + + | Address | [address] | | | [place] [address] | + + + | Home Phone [...] Team Providers + +------+ + | Care Stapler Coil Unit Name | Role | Phone | + [...] + | 01/24/ | Telephone | [facility] | Daljit Singletary, | Other | | 2019 | | CARDIOLOGY [address] | MD [address] | | | | | [place], | [place], | | | | | [place] [address] | [place] [address] | | | | | [phone] | [phone] | | | | | | | [...] | | | | | | [place] [address] | | | | | | [phone] | | | | | | | | +--------+ + + + + | 11/20/ | Implant | Cardiology | Daljit Singletary, | Remote Device | | 2018 | Monitor | | MD [address] | Interrogation | | | | | [address] [place], | (Primary Dx); | | | | | [place] [address] | Presence of | | | | | [phone] | permanent cardiac | | | | [...]
--- OUTSIDE RECORDS SUMMARY | ~2019-11-01 | XMS | Encounter Summary ---
Demographics + + + | Address | [address] | | | [place] [address] | + + + | Home Phone [...] Team Providers + +------+ + | Care Online Merchandising Manager Name | Role | Phone | [...] Eva [place] | | | | | [place], [place] | [address] | | | | | [address] | [place] [address] | | | | | [phone] | [phone] | | | | | | | [...] W | | | | | | [place], | | | | | | [place] [address] | | | | | | [phone] | | | | | | | | +--------+ + + + + | 11/20/ | Implant | Cardiology | Daljit Singletary, | Remote Device | | 2018 | Monitor | | [address] [place] | Interrogation | | | | | [place], | (Primary Dx); | | | | | [place] [address] | Presence of | | | | | [phone] | permanent cardiac | | | | [...] | EXTERNAL LAB: [facility] | Routin | 05/12/2016 | | Results [...] in this encounter Results External Lab: [facility] (05/12/2016 1:43 PM PDT) + + + [...] + + + | RED CELL | 5.46 | 4.20 - 5.70 | [...] | | | Basophils | performed at [facility];[address] | 10*3/uL | LAB | | | | [address] | | | | | | [address];[place] [address] | | | | + + + [...] | | | | | Blvd;[place] [address] | | | | + + + [...] | | | | | | at [facility];[address] [facility] | | | | | | [facility];[place] | | | | | | [address] | | | | + + + [...]
--- OUTSIDE RECORDS SUMMARY | ~2019-11-01 | XMS | Encounter Summary ---
Demographics + + + | Address | [address] | | | [place] [address] | + + + | Home Phone [...] Team Providers + +------+ + | Care Assembler 1St Shift Name | Role | Phone | + [...] + + | 04/07/ | Office | [facility] | Matthew Uriarte | Left ureteral | | 2019 | Visit | [address] | MD Tawanna [address] | calculus (Primary | | | | [place], [place] | [place] | Dx); Kidney stones | | | | [address] | [address] | | | | | [phone] | | | +--------+---------+ + + + [...] April 13, 2019 at 7:45 AM at [facility]. Please report to the Surgery [facility] Procedure Center no later than 6:15 AM. REMEMBER: NOTHING TO EAT OR DRINK AFTER MIDNIGHT April 12, 2019. NO FISH OIL, ASPIRIN OR ASPIRIN PRODUCTS ONE WEEK PRIOR TO SURGERY. Tylenol and Advil are OK. You will need to get the following testing done prior to surgery: CBC, BMP YOU WILL NEED TO BRING A WAREHOUSE ORDER PULLER WITH YOU THE DAY OF SURGERY. Call us at [phone] with any questions. [] Pain management booklet [...] Medtronic Peptic ulcer disease Premature ventricular contraction [facility] care 06/26/2013 LAST PSA:12/16/2010 RESULT:0.14 LAST COLONOSCOPY:02/05/2009 [...] CV LHC; Surgeon: Daljit Singletary MD; Location: [facility] CV LAB CARDIAC CATHERIZATION N/A 01/25/2019 Procedure: CV Cor Angio; Surgeon: Daljit Singletary MD; Location: [facility] CV LAB COLONOSCOPY N/A 12/24/2017 Procedure: COLONOSCOPY; Surgeon: Emmanuel Daniel MD; Location: [facility] MEDICAL PROCEDURE UNIT COLONOSCOPY N/A 01/05/2019 Procedure: COLONOSCOPY; Surgeon: Emmanuel Daniel MD; Location: [facility] MEDICAL PROCEDURE UNIT EGD 12/24/2017 HARDWARE REMOVAL KNEE ARTHROSCOPY Bilateral KNEE SURGERY 2003 meniscus-right LAMINECTOMY 1991 L3-4 LUMBAR DISCECTOMY 1991 L3-4 LUMBAR FUSION 01/2011 6 spine fusions NECK SURGERY NECK SURGERY 08/10/2012 Fusion[place] PACEMAKER PLACEMENT 06/14/2009 Medtronic ROTATOR CUFF REPAIR Bilateral 03/22/2013 SINUS SURGERY 1998 SPINAL FUSION STOMACH SURGERY UPPER GASTROINTESTINAL ENDOSCOPY N/A 12/24/2017 Procedure: EGD; Surgeon: Emmanuel Daniel MD; Location: [facility] MEDICAL PROCEDURE UNIT UPPER GASTROINTESTINAL ENDOSCOPY N/A 01/05/2019 Procedure: EGD; Surgeon: Emmanuel Daniel MD; Location: [facility] MEDICAL PROCEDURE UNIT VASECTOMY Family History: Family History Problem Relation Age of Onset Heart disease Mother Stroke Mother Cancer Father colon,prostate Heart disease Father Heart attack Father Hypertension Father Stroke Father Social History: Social History Socioeconomic History Marital status: Spouse name: Andriea Number of children: 2 Years of education: [...] EVERY DAY, Disp: 90 tablet, Rfl: 3 [facility] Natural Products (OSTEO BI-FLEX/5-LOXIN ADVANCED PO), Take [...] 911, Disp: 100 ta blet, Rfl: 3 [place]-3 Fatty Acids (SALMON OIL-1000 PO), CAPS, one capsule by mouth daily twice daily , Disp: , Rfl: ondansetron (ZOFRAN ODT) 4 mg disintegrating tablet, Take 4 mg by mouth., Disp: , Rfl: ONE TOUCH DELICA LANCETS [facility], Check glucose as needed for hypoglycemia, Disp: [...] have not thoroughly proofread this note, and spray pilot errors are very likely to occur. CC: [...] W | | | | | | [place], | | | | | | [place] [address] | | | | | | [phone] | | | | | | | | +--------+ + + + + | 11/20/ | Implant | Cardiology | Daljit Singletary, | Remote Device | | 2018 | Monitor | | MD [address] [place] | Interrogation | | | | | [place], | (Primary Dx); | | | | | [place] [address] | Presence of | | | | | [phone] | permanent cardiac | | | | [...]
--- OUTSIDE RECORDS SUMMARY | ~2019-11-01 | XMS | Encounter Summary ---
Demographics + + + | Address | [address] | | | [place] [address] | + + + | Home Phone [...] Team Providers + +------+ + | Care Broth Setter Name | Role | Phone | [...] type ER | [address] | [address] | | | | | FUP | [place] | [place], | | | | | Procedures | [place], [place] | [place] [address] | | | | | FUP - SUW & | [address] | Phone: | | | | | EVM PT, LAST | Phone: | [phone] | | | | | SEEN | [phone] | Fax: | | | | | 08-24-18 | Fax: | [phone] | | | | | | [phone] | | +--------+ + + + + [...] | | | | CENTER [address] | [address] [place] | (Primary Dx) | | | | [place], [place] | [place] [address] | | | | | [address] | [phone] | | | | | [phone] | | | +--------+ + + + [...] through Care Everywhere.Chest Pain, Unc ertain Cause (Arabic)documented in this encounter Medications at Time of [...] + + + +---------+ + + | [place]-3 Fatty | CAPS, one capsule by | [...] W | | | | | | [place] [place], | | | | | | [place] [address] | | | | | | [phone] | | | | | | | | +--------+ + + + + | 11/20/ | Implant | Cardiology | Daljit Singletary, | Remote Device | | 2018 | Monitor | | [address] | Interrogation | | | | | [place], | (Primary Dx); | | | | | [place] [address] | Presence of | | | | | [phone] | permanent cardiac | | | | [...] | | | | ANGELA MARADIAGA MD ([id number]) | | | | | | on [...] | | | | | | [employer] | | | | | [...] [address] | [place] | [phone] | | [facility] | | [address] | | | - LABORATORY | | [...] [address] | [place] | [phone] | | [facility] | | [address] | | | - LABORATORY | | [...] - 1.030 | [facility] | | | [place] | | | [facility] | | [...] ST. | [address] | [place] | [phone] | | [facility] | | [address] | | | - LABORATORY | | [...] + | [facility] | [address] | [place] | [phone] | | [facility] | | [address] | | | - LABORATORY | | [...] [address] | [place] | [phone] | | [facility] | | [address] | | | - LABORATORY | | [...] | | | | | | [employer] | | | | | [...] [address] | [place] | [phone] | | [facility] | | [address] | | | - LABORATORY | | [...] 13 | 7 - 18 mg/dL | [facility] | | | | | | [facility] | | | | | [facility] | | | | | | [facility] - | | | | | | LABORATORY | | + + + + + + | Creatinine | 0.96 | 0.60 - 1.30 | [facility] | | | | | mg/dL | [facility] | | | | | | [facility]ICAL | | | | | | CENTER - | | | | | | LABORATORY | | + + + + + + | eGFR if not | >60Comment: GLOMERULAR | >=60 | [facility] | | | | FILTRATION | mL/min/1.73m2 | [facility] | | | [facility] | RATE,ESTIMATED | | MEDICAL | | | | mL/min/1.20f6Boos than | | CENTER - | | [...] ST. | [address] | [place] | [phone] | | [facility] | | [address] | | | - LABORATORY | | [...] ST. | [address] | [place] | [phone] | | [facility] | | [address] | | | - LABORATORY | | [...] | | | | ANGELA MARADIAGA MD ([id number]) | | | | | | on [...]
--- OUTSIDE RECORDS SUMMARY | ~2019-11-01 | XMS | Encounter Summary ---
Demographics + + + | Address | [address] | | | [place] [address] | + + + | Home Phone [...] Team Providers + +------+ + | Care House Officer Name | Role | Phone | [...] 2014 | | CARDIOLOGY [address] | REIMBURSEMENT REPRESENTATIVE [address] [place] | | | | | [place], | [place], [place] | | | | | [place] [address] | [address] | | | | | [phone] | | | +--------+ + + + [...] | | | | | [place], | | | | | | [place] [address] | | | | | | [phone] | | | | | | | | +--------+ + + + + | 11/20/ | Implant | Cardiology | Daljit Singletary, | Remote Device | | 2018 | Monitor | | MD [address] | Interrogation | | | | | [address] [place], | (Primary Dx); | | | | | [place] [address] | Presence of | | | | | [phone] | permanent cardiac | | | | [...]
--- OUTSIDE RECORDS SUMMARY | ~2019-11-01 | XMS | Encounter Summary ---
Demographics + + + | Address | [address] | | | [place] [address] | + + + | Home Phone [...] Team Providers + +------+ + | Care Pupil Personnel Worker Name | Role | Phone | + +------+ + PCP | Unavailable | + +------+ + Encounter Details +--------+ + + + + | Date | Type | Department | Care Team | Description | +--------+ + + + + | 10/26/ | Hospital | [facility] | | | | 1994 | Encounter | MED CTR EMERGENCY | | | | | | CENTER [address] | | | | | | [place] | | | | | | [address] | | | | | | [phone] | | | +--------+ + + + [...] | | | | | | [place] [address] | | | | | | [phone] | | | | | | | | +--------+ + + + + | 11/20/ | Implant | Cardiology | Daljit Singletary, | Remote Device | | 2018 | Monitor | | [facility] | Interrogation | | | | | [place] [place], | (Primary Dx); | | | | | [place] [address] | Presence of | | | | | [phone] | permanent cardiac | | | | [...]
--- OUTSIDE RECORDS SUMMARY | ~2019-11-01 | XMS | Encounter Summary ---
Demographics + + + | Address | [address] | | | [place] [address] | + + + | Home Phone [...] Team Providers + +------+ + | Care Society Reporter Name | Role | Phone | + [...] | | | | [place] | [address] | | | | | [address] | | | | | | [phone] | | | +--------+ + + + [...] | | | | | | [place], | | | | | | [place] [address] | | | | | | [phone] | | | | | | | | +--------+ + + + + | 11/20/ | Implant | Cardiology | Daljit Singletary, | Remote Device | | 2018 | Monitor | | MD [address] | Interrogation | | | | | [place], | (Primary Dx); | | | | | [place] [address] | Presence of | | | | | [phone] | permanent cardiac | | | | [...]
--- OUTSIDE RECORDS SUMMARY | ~2019-11-01 | XMS | Encounter Summary ---
Demographics + + + | Address | [address] | | | [place] [address] | + + + | Home Phone [...] Team Providers + +------+ + | Care Displayer Merchandise Name | Role | Phone | + [...] [address] | | | | | [place], | [place], | | | | | [place] [address] | [place] [address] | | | | | [phone] | [phone] | | | | | | | [...] | | | | | | [place], | | | | | | [place] [address] | | | | | | [phone] | | | | | | | | +--------+ + + + + | 11/20/ | Implant | Cardiology | Daljit Singletary, | Remote Device | | 2018 | Monitor | | [address] [place] | Interrogation | | | | | [place], | (Primary Dx); | | | | | [place] [address] | Presence of | | | | | [phone] | permanent cardiac | | | | [...] Comment | + + | [facility] [place] [place] | + + + +---------+ + + [...] Comment | + + | [facility] [place] | + + + +---------+ + + [...]
--- OUTSIDE RECORDS SUMMARY | ~2019-11-01 | XMS | Encounter Summary ---
Demographics + + + | Address | [address] | | | [place] [address] | + + + | Home Phone [...] Team Providers + +------+ + | Care Solar/Renewable Energy Sales Name | Role | Phone | [...] | Aneurysmal | [place], | [address] | | | | | dilatation | PARISA Solis | [place], | | | | | (HCC) | [address] | [place] | | | | | Procedures | [place] | [address] | | | | | ECHO | [place], | Phone: | | | | | Complete | [place] | [phone] | | | | | | [address] | Fax: | | | | | | Phone: | [phone] | | | | | | [phone] | | | | | | | Fax: | | | | | | | [phone] | | +--------+--------+ + + + + Encounter Details +--------+ + + + + | Date | Type | Department | Care Team | Description | +--------+ + + + + | 11/16/ | Orders Only | [facility] [place] | [place], | Aneurysmal | | 2017 | | CARDIOLOGY [address] | PARISA Solis [address] | dilatation (HCC) | | | | [place], | [place], | (Primary Dx) | | | | [place] [address] | [place] [address] | | | | | [phone] | [phone] | | | | | | | [...] W | | | | | | [place], | | | | | | [place] [address] | | | | | | [phone] | | | | | | | | +--------+ + + + + | 11/20/ | Implant | Cardiology | Sydni Singletary, | Remote Device | | 2018 | Monitor | | [address] | Interrogation | | | | | [place], | (Primary Dx); | | | | | [place] [address] | Presence of | | | | | [phone] | permanent cardiac | | | | [...] Room Number SARAH Patient | | | [id number] Date of Study 11/16/2017 Number | | | Visit Number [id number] | | | Referring Physician GURJIT TROY Number | | | ELIZABETHANGELIA SOLIS Date | | | of 1960 Global Marketing Intern ROMAINE | | | MARISSA TIPTON Age 57 year(s) Interpreting | | | GURJIT TROY | | | Pattern Layout Worker SYDNI SINGLETARY, | | | | | | Gender Male Nurse | | | Stress Highwall Drill Operator Procedure Type of | | | Study [...] | | | EF | | | Elnprnabp54% Left Ventricle Diastolic Dimension: 5.12 cm | [...] Volume: 46.33 ml | | | EF Eiirvlnmg41% | | | | | | Left [...] BARRY Room Number SARAH | | Patient [id number] Date of Study 11/16/2017 Number Visit Number | | [id number] Referring Physician GURJIT TROY | | Number NORMA MCLAUGHLINN Date of | | 1960 Global Marketing Intern ROMAINE TIPTON RDCS Age 57 year(s) | | Interpreting GURJIT TROY Pattern Layout Worker | | SYDNI SINGLETARY MD | [...] [place] Volume: 46.33 ml | | EF Rfdkczxrq41% Left Ventricle Diastolic Dimension: 5.12 cm Systolic [...] [place] Volume: 46.33 ml | | EF Iyjyiqyvs12% | | | | Left Ventricle | [...]
--- OUTSIDE RECORDS SUMMARY | ~2019-11-01 | XMS | Encounter Summary ---
Demographics + + + | Address | [address] | | | [place] [address] | + + + | Home Phone [...] Team Providers + +------+ + | Care Vibration Engineer Name | Role | Phone | [...] 2019 | | GASTROENTEROLOGY | [address], [place] | | | | | [address] [place] | [address] [place], [place] | | | | | [address] [place], [place] | [address] | | | | | [address] | | | | | | [phone] | | | +--------+ + + + [...] W | | | | | | [place], | | | | | | [place] [address] | | | | | | [phone] | | | | | | | | +--------+ + + + + | 11/20/ | Implant | Cardiology | Daljit Singletary, | Remote Device | | 2019 | Monitor | | [address] | Interrogation | | | | | [place], | (Primary Dx); | | | | | [place] [address] | Presence of | | | | | [phone] | permanent cardiac | | | | [...]
--- OUTSIDE RECORDS SUMMARY | ~2019-11-01 | XMS | Encounter Summary ---
Demographics + + + | Address | [address] | | | [place] [address] | + + + | Home Phone [...] Team Providers + +------+ + | Care Focus Puller Name | Role | Phone | [...] | | GASTROENTEROLOGY | [address] [place], [place] | | | | | [address] [place] | [address] [place], [place] | | | | | [address] [place], [place] | [address] | | | | | [address] | | | | | | [phone] | | | +--------+ + + + [...] | | | | | | [place], | | | | | | [place] [address] | | | | | | [phone] | | | | | | | | +--------+ + + + + | 11/20/ | Implant | Cardiology | Daljit Singletary, | Remote Device | | 2018 | Monitor | | MD [address] | Interrogation | | | | | [place], | (Primary Dx); | | | | | [place] [address] | Presence of | | | | | [phone] | permanent cardiac | | | | [...]
--- OUTSIDE RECORDS SUMMARY | ~2019-11-01 | XMS | Encounter Summary ---
Demographics + + + | Address | [address] | | | [place] [address] | + + + | Home Phone [...] + +------+ + | Care Director Of Residence Life Name | Role | Phone | + +------+ + PCP | Unavailable | + +------+ + Encounter Details +--------+ + + + + | Date | Type | Department | Care Team | Description | +--------+ + + + + | 05/13/ | [facility] | [facility] | Dom Graham, | | | 2010 | Encounter | MED CTR EMERGENCY | [address] | | | | | CENTER [address] | [place] | | | | | [place] | [address] | | | | | [address] | | | | | | [phone] | | | +--------+ + + + [...] W | | | | | | [place], | | | | | | [place] [address] | | | | | | [phone] | | | | | | | | +--------+ + + + + | 11/20/ | Implant | Cardiology | Daljit Singletary, | Remote Device | | 2019 | Monitor | | [facility] | Interrogation | | | | | [place], | (Primary Dx); | | | | | [place] [address] | Presence of | | | | | [phone] | permanent cardiac | | | | [...] | | | | | the Javid [place] | | | | | | Access [...] ST. | [address] | [place], [place] | [phone] | | [facility] | | [address] | | | - LABORATORY | | | | + + + + + | [address] | [address] | [place], [place] | | | [facility] | | [address] | | | - LABORATORY | | [...] + | [facility] | [address] | [place] | [phone] | | [facility] | | [address] | | | - LABORATORY | | | | + + + + + | [facility] | [address] | [place], [place] | | | [facility] | | [address] | | | - LABORATORY | | [...] + | [facility] | [address] | [place], [place] | [phone] | | [facility] | | [address] | | | - LABORATORY | | | | + + + + + | [facility] | [address] | [place], [place] | | | [facility] | | [address] | | | - LABORATORY | | [...] | | | | | | the Javdi Aldo | | | | | | [...] + | [facility] [facility] | [address] | [place], [place] | [phone] | | [facility] | | [address] | | | - LABORATORY | | | | + + + + + | [facility] | [address] | [place], [place] | | | [facility] | | [address] | | | - LABORATORY | | | | + + + + + XR Chest AP Portable (05/13/2011 3:01 PM PDT) + + | Specimen | + + | | + + + + + | Narrative | Performed At | + + + | [facility] Diagnostic Imaging Department | [facility] | | [address] [facility] | [facility] [...] Transcribed Date/Time: | | | 05/13/2011 17:06 Telecommunications Analyst: <Electronically Signed | | | by Jama Solis MD> 05/13/112038 | | + + + + + | Procedure Note | + + | Kevin, Rad Conversion - 12/29/2013 3:12 PM [facility] | | Diagnostic Imaging Department [address] [place] [address] | | PORTABLE CHEST CLINICAL HISTORY: TACHYCARDIA. [...] 16:57 | |Transcribed Date/Time: 05/13/2011 17:06 | |Telecommunications Analyst: | |<Electronically Signed by Jama Solis [...]
--- OUTSIDE RECORDS SUMMARY | ~2019-11-01 | XMS | Encounter Summary ---
Demographics + + + | Address | [address] | | | [place] [address] | + + + | Home Phone [...] Providers + +------+ + | Care Mechanical Shovel Operator Name | Role | Phone | [...] [address] | | | | | [place], | [place], | | | | | [place] [address] | [place] [address] | | | | | [phone] | [phone] | | | | | | | [...] W | | | | | | [place], | | | | | | [place] [address] | | | | | | [phone] | | | | | | | | +--------+ + + + + | 11/20/ | Implant | Cardiology | Daljit Singletary, | Remote Device | | 2018 | Monitor | | [address] [facility] | Interrogation | | | | | [place], | (Primary Dx); | | | | | [place] [address] | Presence of | | | | | [phone] | permanent cardiac | | | | [...]
--- OUTSIDE RECORDS SUMMARY | ~2019-11-01 | XMS | Encounter Summary ---
Demographics + + + | Address | [address] | | | [place] [address] | + + + | Home Phone [...] Team Providers + +------+ + | Care Plate Maker Name | Role | Phone | + +------+ + PCP | Unavailable | + +------+ + Encounter Details +--------+ + + + + | Date | Type | Department | Care Team | Description | +--------+ + + + + | 01/31/ | Hospital | [facility] | | | | 2008 | Encounter | MED CTR EMERGENCY | | | | | | [place] [address] | | | | | | [place] | | | | | | [address] | | | | | | [phone] | | | +--------+ + + + [...] | | | | | | [place] [address] | | | | | | [phone] | | | | | | | | +--------+ + + + + | 11/20/ | Implant | Cardiology | Daljit Singletary, | Remote Device | | 2018 | Monitor | | [facility] | Interrogation | | | | | [place], | (Primary Dx); | | | | | [place] [address] | Presence of | | | | | [phone] | permanent cardiac | | | | [...]
--- OUTSIDE RECORDS SUMMARY | ~2019-11-01 | XMS | Encounter Summary ---
Demographics + + + | Address | [address] | | | [place] [address] | + + + | Home Phone [...] Team Providers + +------+ + | Care Photographic Engineer Name | Role | Phone | [...] + + | 04/10/ | Telephone | [facility] | Matthew Uriarte | Surgery Appointment | | 2019 | | [address] | MD Tawanna [address] | | | | | [place], [place] | [place], [place] | | | | | [address] | [address] | | | | | [phone] | | | +--------+ + + + [...] | | | | | | [place] [address] | | | | | | [phone] | | | | | | | | +--------+ + + + + | 11/20/ | Implant | Cardiology | Daljit Singletary, | Remote Device | | 2018 | Monitor | | MD [address] | Interrogation | | | | | [address] [place], | (Primary Dx); | | | | | [place] [address] | Presence of | | | | | [phone] | permanent cardiac | | | | [...]
--- OUTSIDE RECORDS SUMMARY | ~2019-11-01 | XMS | Encounter Summary ---
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, | (Primary Dx); | | | | | [place] [address] | Presence of | | | | | [phone] | permanent cardiac | | | | [...] MD | | | | | | ([id number]) on 06/23/2016 | | | | | [...]
--- OUTSIDE RECORDS SUMMARY | ~2019-11-01 | XMS | Encounter Summary ---
Demographics + + + | Address | [address] [place] [address] | | | [place] [address] | + + + | Home Phone [...] [place] | | | | | [address] | | + + + + + Care Team Providers + +------+ + | Care Branch Operations Coordinator Name | Role | Phone | [...] [facility] [address] | MD [address] | | | | | [address] | [place], [place] | | | | | Mailcode: Center | [address] | | | | | [facility] and | [phone] | | | | | [facility] 2 | | | | | | [place], [place] | | | | | | [address] | | | | | | [phone] | | | +--------+ + + + [...]
--- OUTSIDE RECORDS SUMMARY | ~2019-11-01 | XMS | Encounter Summary ---
Demographics + + + | Address | [address] | | | [place] [address] | + + + | Home Phone [...] Team Providers + +------+ + | Care Housekeeping Coordinator Name | Role | Phone | [...] + | 01/03/ | Office | [facility] | [place], | CAD (coronary artery | | 2012 | Visit | CARDIOLOGY [address] | Janeen, FIXED WING PILOT [address] | disease) (Primary | | | | [place], | [place], | Dx); Bradycardia; | | | | [place] [address] | [place] [address] | HTN (hypertension); | | | | [phone] | [phone] | Lightheadedness | | | | | [...] f rom the original. Subjective: Patient ID: oMe Sanchez is a 52 y.o. male. PCP: [...] tablet Take 1,000 mg by mouth Daily. Ferris-3 Fatty Acids (SALMON OIL-1000 PO) CAPS, one [...] himself t o the emergency department at [facility] in [place], [place]. EKG showed normal s inus rhythm [...] Refer patient to an electrophysiology specialist in [place] for further evaluation for P VC's ablation. I have given verbal instructions and written material for patient to read mo re about the procedure. 2. Check blood pressure and pulse twice daily for two weeks and return the log to our offic e. 3. Followup appointment after patient's appointment with market risk specialist/ablation. IJaneen ARNP, saw this patient under the direct supervision of Daljit Singletary MD Portions of this report were transcribed using voice recognition software. Every effort wa s made to ensure accuracy; however, inadvertent computerized pe electrical engineer errors may be pre sent. documented in this encounter Plan of Treatment +--------+ + + + + | Date | Type | Specialty | Care Team | Description | +--------+ + + + + | 11/09/ | Office | Cardiology | [place], | | | 2018 | Visit | | PARISA [place] [address] | | | | | | [place], | | | | | | [place] [address] | | | | | | [phone] | | | | | | | | +--------+ + + + + | 11/20/ | Implant | Cardiology | Daljit Singletary, | Remote Device | | 2018 | Monitor | | MD [address] [place] [address] | Interrogation | | | | | [place], | (Primary Dx); | | | | | [place] [address] | Presence of | | | | | [phone] | permanent cardiac | | | | [...] of unspecified type | | of vessel, [place] or graft | + + | Bradycardia Other specified cardiac dysrhythmias | + + | HTN (hypertension) Unspecified essential hypertension | + + | Lightheadedness Dizziness and giddiness | + + documented in this encounter
--- OUTSIDE RECORDS SUMMARY | ~2019-11-01 | XMS | Encounter Summary ---
Demographics + + + | Address | [address] | | | [place] [address] | + + + | Home Phone [...] Team Providers + +------+ + | Care Dexigraph Operator Name | Role | Phone | [...] | | | pain | [address] | [address] | | | | | Procedures | [place] | [place], | | | | | [place] Nuclear | [place] | [place] | | | | | Stress Test | [address] | [address] | | | | | (Vasodilator | Phone: | Phone: | | | | | ) CHG | [phone] | [phone] | | | | | MYOCARDIAL | Fax: | Fax: | | | | | SPECT | [phone] | [phone] | | | | | MULTIPLE | | | | | | | STUDIES | | | +--------+--------+ + + + + Encounter Details +--------+ + + + + | Date | Type | Department | Care Team | Description | +--------+ + + + + | 12/06/ | Hospital | [facility] | Geri Angel, | Other chest pain | | 2013 | Encounter | MED CTR XRAY [address] | INJECTION MOLDING TECHNICIAN [address] | | | | | [place] | [place] | | | | | [place] [address] | [address] | | | | | [phone] | | | +--------+ + + + [...] + + + +---------+ + + | Addison-3 Fatty | CAPS, one capsule by | [...] | | | | | | [place], | | | | | | [place] [address] | | | | | | [phone] | | | | | | | | +--------+ + + + + | 11/20/ | Implant | Cardiology | Daljit Singletary, | Remote Device | | 2018 | Monitor | | [address] | Interrogation | | | | | [place], | (Primary Dx); | | | | | [place] [address] | Presence of | | | | | [phone] | permanent cardiac | | | | [...] Performed At | + + + | [facility] Diagnostic Imaging | [place] | | Department [address] [facility] | [facility] | | [ rep [address]] [ rep [place] [facility] | | st zip] Signed | - IMAGING | | | | | Patient Name: MOE GAY | | | Physician: JACKLYN : 1960 Age: 53 Sex: M Unit | | | #: [id number] Exam Date: 12/06/13 Location: | | | [facility] Report #: [id number] Page: | | | %(RAD)RES..mtdd.print.filter("pg") of %(RAD) | | | RES..mtdd.print.filter("tpg") | | | | | | Accession Number: [id number] | | | PERSANTINE SESTAMIBI STRESS TEST, [...] Transcribed Date/Time: 12/07/2013 08:18 | | | Travel Money Advisor: <<Signature on File>> | | | | | | Daljit Singletary MD [facility]12/07/13 1321 <Electronically signed | | | by Daljit Singletary MD, FACC, FACP, FASE, FASNC> Daljit | | | MD CLEOPATRA Singletary 12/07/13 0701 Travel Money Advisor: Jessica | | | Lvsyzhmqocarc63/16/14 0818 PARISA Garcia | | + + + + + + + + | Performing | Address | [facility] | Phone Number | | Organization | | | | + + + + + | [facility] | [address] | [place] | [phone] | | [facility] | | [address] | | | - IMAGING | | | | + + + + + documented in this encounter Visit Diagnoses + + | Diagnosis | + + | Other chest pain | + + documented in this encounter
--- OUTSIDE RECORDS SUMMARY | ~2019-11-01 | XMS | Encounter Summary ---
Demographics + + + | Address | [address] | | | [place] [address] | + + + | Home Phone [...] Team Providers + +------+ + | Care Getter Operator Name | Role | Phone | [...] Refill | | 2013 | | [facility] [place] | DO [address] | | | | | [address] | [place] | | | | | [place] | [address] | | | | | [address] | | | | | | [phone] | | | +--------+--------+ + + + [...] W | | | | | | [place], | | | | | | [place] [address] | | | | | | [phone] | | | | | | | | +--------+ + + + + | 11/20/ | Implant | Cardiology | Daljit Singletary, | Remote Device | | 2018 | Monitor | | [address] [facility] | Interrogation | | | | | [place], | (Primary Dx); | | | | | [place] [address] | Presence of | | | | | [phone] | permanent cardiac | | | | [...]
--- OUTSIDE RECORDS SUMMARY | ~2019-11-01 | XMS | Encounter Summary ---
Demographics + + + | Address | [address] | | | [place] [address] | + + + | Home Phone [...] Team Providers + +------+ + | Care Cured Meat Packing Supervisor Name | Role | Phone | [...] [address] | | | | | [place], | [place], | | | | | [place] [address] | [place] [address] | | | | | [phone] | [phone] | | | | | | | [...] | | | | | | [place] [address] | | | | | | [phone] | | | | | | | | +--------+ + + + + | 11/20/ | Implant | Cardiology | Daljit Singletary, | Remote Device | | 2019 | Monitor | | MD [address] [facility] [place] | Interrogation | | | | | [place], | (Primary Dx); | | | | | [place] [address] | Presence of | | | | | [phone] | permanent cardiac | | | | [...] [place] | | | [facility] | | [address] | | | - LABORATORY | | [...] | | | LAB | | | [place], | | | | | | External [...] + | [facility] | [address] | [place] | | | [facility] | | [address] | | | - LABORATORY | | [...]
--- OUTSIDE RECORDS SUMMARY | ~2019-11-01 | XMS | Encounter Summary ---
Demographics + + + | Address | [address] | | | [place] [address] | + + + | Home Phone [...] Team Providers + +------+ + | Care Bass Mechanism Maker Name | Role | Phone | [...] | type | [address] | [address] | | | | | Procedures | [place] | [place], | | | | | FUP | [place], [place] | [place] [address] | | | | | | [address] | Phone: | | | | | | Phone: | [phone] | | | | | | [phone] | Fax: | | | | | | Fax: | [phone] | | | | | | [phone] | | +--------+ + + + + [...] | | | | CENTER [address] [place] | (Primary Dx) | | | | [place], [place] | [place] [address] | | | | | [address] | [phone] | | | | | [phone] | | | +--------+ + + + [...] cannot be sent through Care Everywhere.Angina, Stable (Singaporean)documented in this encounter Medications at Time of [...] + + + +---------+ + + | [employer] Fatty | CAPS, one capsule by | [...] | | | | | | [place] [address] | | | | | | [phone] | | | | | | | | +--------+ + + + + | 11/20/ | Implant | Cardiology | Gemini Shaistakenneth, | Remote Device | | 2019 | Monitor | | MD [facility] | Interrogation | | | | | [place], | (Primary Dx); | | | | | [place] [address] | Presence of | | | | | [phone] | permanent cardiac | | | | [...] | | | | ANGELA MARADIAGA MD ([id number]) | | | | | | on [...] | [address] | [place] | [phone] | | [facility] | | [address] | | | - LABORATORY | | [...] [address] | [place] | [phone] | | [facility] | | [address] | | | - LABORATORY | | [...] + | [facility] | [address] | [place] | [phone] | | [facility] | | [address] | | | - LABORATORY | | [...] | | | FILTRATION | mL/min/1.73m2 | [facility] | | | RWANDAN | RATE,ESTIMATED | | MEDICAL | | | | mL/min/1.46b7Bzta than | | CENTER - | | [...] 9.3 | 8.3 - 10.5 | [facility] | | | | | mg/dL | [facility] | | | | | | MEDICAL | | | | | | CENTER - | | | | | | LABORATORY | | + + + + + + | Albumin | 4.2 | 3.2 - 5.0 g/dL | [facility] | | | | | | [facility] | | | | | | MEDICAL [...] | | ine Ratio | | | [facility] | | | | | | MEDICAL [...] [address] | [place] | [phone] | | [facility] | | [address] | | | - LABORATORY | | [...] [address] | [place] | [phone] | | [facility] | | [address] | | | - LABORATORY | | [...] | | | | ANGELA MARADIAGA MD ([id number]) | | | | | | on [...]
--- OUTSIDE RECORDS SUMMARY | ~2019-11-01 | XMS | Encounter Summary ---
Demographics + + + | Address | [address] | | | [place] [address] | + + + | Home Phone [...] Providers + +------+ + | Care Registered Nurse Maternity Name | Role | Phone | + [...] 2019 | | GASTROENTEROLOGY | [address], [place] | | | | | [address] [place] | [address] [place], [place] | | | | | [address] [place], [place] | [address] | | | | | [address] | | | | | | [phone] | | | +--------+ + + + [...] W | | | | | | [address] [place], | | | | | | [place] [address] | | | | | | [phone] | | | | | | | | +--------+ + + + + | 11/20/ | Implant | Cardiology | Daljit Singletary, | Remote Device | | 2019 | Monitor | | [address] | Interrogation | | | | | [place], | (Primary Dx); | | | | | [place] [address] | Presence of | | | | | [phone] | permanent cardiac | | | | [...]
--- OUTSIDE RECORDS SUMMARY | ~2019-11-01 | XMS | Encounter Summary ---
Demographics + + + | Address | [address] | | | [place] [address] | + + + | Home Phone [...] Team Providers + +------+ + | Care Flexboard Operator Name | Role | Phone | [...] | CARDIOLOGY [address] | [address] | Interrogation | | | | [place], | [place], | (Primary Dx); | | | | [place] [address] | [place] [address] | Presence of | | | | [phone] | [phone] | permanent cardiac | | | | [...] | | | | | | [place] [address] | | | | | | [phone] | | | | | | | | +--------+ + + + + | 11/20/ | Implant | Cardiology | Daljit Singletary, | Remote Device | | 2019 | Monitor | | [address] | Interrogation | | | | | [place], | (Primary Dx); | | | | | [place] [address] | Presence of | | | | | [phone] | permanent cardiac | | | | [...] remote PDF scanned into | | | [employer] for remote interrogation results. Data collected by [...]
--- OUTSIDE RECORDS SUMMARY | ~2019-11-01 | XMS | Encounter Summary ---
Demographics + + + | Address | [address] | | | [place] [address] | + + + | Home Phone [...] Team Providers + +------+ + | Care Bull Float Finisher Name | Role | Phone | + +------+ + PCP | Unavailable | + +------+ + Encounter Details +--------+ + + + + | Date | Type | Department | Care Team | Description | +--------+ + + + + | 01/27/ | [facility] | [facility] | Jonathan, | | | 2008 | Encounter | MED CTR EMERGENCY | Martell Cr MD [address] | | | | | CENTER [address] | [place] | | | | | [place] | [place] [address] | | | | | [address] | [phone] | | | | | [phone] | | | +--------+ + + + [...] W | | | | | | [place], | | | | | | [place] [address] | | | | | | [phone] | | | | | | | | +--------+ + + + + | 11/20/ | Implant | Cardiology | Daljit Singletary, | Remote Device | | 2019 | Monitor | | MD [address] | Interrogation | | | | | [place], | (Primary Dx); | | | | | [place] [address] | Presence of | | | | | [phone] | permanent cardiac | | | | [...]
--- OUTSIDE RECORDS SUMMARY | ~2019-11-01 | XMS | Encounter Summary ---
Demographics + + + | Address | [address] | | | [place] [address] | + + + | Home Phone [...] + +------+ + | Care Electrical Engineering Professor Name | Role | Phone | [...] + | 02/16/ | Telephone | [facility] | Silvia, | Other (concerned | | 2012 | | CARDIOLOGY [address] | [place] [address] | about palpitations) | | | | [place], | [place], | | | | | [place] [address] | [place] [address] | | | | | [phone] | [phone] | | | | | | | [...] W | | | | | | [place], | | | | | | [place] [address] | | | | | | [phone] | | | | | | | | +--------+ + + + + | 11/20/ | Implant | Cardiology | Daljit Singletary, | Remote Device | | 2018 | Monitor | | [facility] | Interrogation | | | | | [place], | (Primary Dx); | | | | | [place] [address] | Presence of | | | | | [phone] | permanent cardiac | | | | [...]
--- OUTSIDE RECORDS SUMMARY | ~2019-11-01 | XMS | Encounter Summary ---
Demographics + + + | Address | [address] | | | [place] [address] | + + + | Home Phone [...] Team Providers + +------+ + | Care Shrimp Packer Name | Role | Phone | + +------+ + | Michael Amanda DO | PCP | | + +------+ + Encounter Details +--------+ + + + + | Date | Type | Department | Care Team | Description | +--------+ + + + + | 11/03/ | Emergency | [facility] | Eliel [place], | Palpitations; | | 2013 - | | MEDICAL CENTER | MD Chiquis JOHNSON | Atypical chest pain | | | | EMERGENCY CENTER | [facility] | | | 11/04/ | | [address] | [address] | | | 2013 | | [place], [place] | | | | | | [address] | | | | | | [phone] | | | +--------+ + + + [...] + + + +---------+ + + | [place]-3 Fatty | CAPS, one capsule by [...] | | | | | | [place] [address] | | | | | | [phone] | | | | | | | | +--------+ + + + + | 11/20/ | Implant | Cardiology | Daljit Singletary, | Remote Device | | 2019 | Monitor | | [address] [facility] | Interrogation | | | | | [address] [place], | (Primary Dx); | | | | | [place] [address] | Presence of | | | | | [phone] | permanent cardiac | | | | [...] CHEST 2 VIEW FRONTAL | | AND GPOZBMP8511/03/2014 11:56 PM History: 54 years. Male. Acute [...] EXTERNAL | | | | performed at [facility];888 | | LAB | | | | [facility];[place], [place] | | | | | | [address] | | | | + + + + + -+ | RED CELL | 4.97Comment: Testing | 4.20 - 5.70 | EXTERNAL | | | COUNT | performed at [facility];888 | M/uL | LAB | | | | [address];[place] | | | | | | [address] | | | | + + + + + -+ | Hgb | 16.8Comment: Testing | 13.2 - 17.0 | EXTERNAL | | | | performed at [facility];888 | g/dL | LAB | | | | [address];[place] | | | | | | [address] | | | | + + + + + -+ | Hematocrit, | 48.2Comment: Testing | 39.0 - 50.0 % | EXTERNAL | | | POC | performed at [facility];[address] | | LAB | | | | [address];[place] | | | | | | [address] | | | | + + + + + -+ | MCV | 97.1Comment: Testing | 80.0 - 100.0 fl | EXTERNAL | | | | performed at [facility];[address] | | LAB | | | | [address];[place] | | | | | | [address] | | | | + + + + + -+ | MCH | 33.9Comment: Testing | 27.0 - 34.0 pg | EXTERNAL | | | | performed at [facility];[address] | | LAB | | | | [address];[place] | | | | | | [address] | | | | + + + + + -+ | MCHC | 34.9Comment: Testing | 32.0 - 35.5 | EXTERNAL | | | | performed at [facility];888 | g/dL | LAB | | | | [address];[place] | | | | | | [address] | | | | + + + + + -+ | RDW-CV | 42.4Comment: Testing | 37 - 53 fl | EXTERNAL | | | | performed at [facility];[address] | | LAB | | | | [address];[place] | | | | | | [address] | | | | + + + + + -+ | Platelet | 143 (L)Comment: Testing | 150 - 400 K/uL | EXTERNAL | | | Count | performed at [facility];888 | | LAB | | | Plasma | [address];[place] | | | | | | [address] | | | | + + + + + -+ | MPV | 9.0Comment: Testing | fl | EXTERNAL | | | | performed at [facility];[address] | | LAB | | | | [address];[place] | | | | | | [address] | | | | + + + + + -+ | Differentia | AUTOMATEDComment: | | EXTERNAL | | | l Type | Testing performed at | | LAB | | | | [facility];[address] | [address];[place] [address] | | | | + + + + + -+ | % Segmented | 61.6Comment: Testing | % | EXTERNAL | | | | performed at [facility];[address] | | LAB | | | Neutrophils | [address];[place] | | | | | | [address] | | | | + + + + + -+ | % | 27.8Comment: Testing | % | EXTERNAL | | | Lymphocytes | performed at [facility];[address] | | LAB | | | | [address];[place] | | | | | | [address] | | | | + + + + + -+ | % Monocytes | 8.7Comment: Testing | % | EXTERNAL | | | | performed at [facility];[address] | | LAB | | | | [address];[place] | | | | | | [address] | | | | + + + + + -+ | % | 0.8Comment: Testing | % | EXTERNAL | | | Eosinophils | performed at [facility];[address] | | LAB | | | | [address];[place] | | | | | | [address] | | | | + + + + + -+ | % Basophils | 1.1Comment: Testing | % | EXTERNAL | | | | performed at [facility];[address] | | LAB | | | | [address];[place] | | | | | | [address] | | | | + + + + + -+ | Absolute | 5.4Comment: Testing | 1.9 - 7.4 K/uL | EXTERNAL | | | Segmented | performed at [facility];888 | | LAB | | | Neutrophils | [address];[place] | | | | | | [address] | | | | + + + + + -+ | Absolute | 2.4Comment: Testing | 1.0 - 3.9 K/uL | EXTERNAL | | | Lymphocytes | performed at [facility];[address] | | LAB | | | | [address];[place] | | | | | | [address] | | | | + + + + + -+ | Absolute | 0.8Comment: Testing | 0 - 0.8 K/uL | EXTERNAL | | | Monocytes | performed at [facility];888 | | LAB | | | | [address];[place] | | | | | | [address] | | | | + + + + + -+ | Absolute | 0.1Comment: Testing | 0 - 0.5 K/uL | EXTERNAL | | | Eosinophils | performed at [facility];[address] | | LAB | | | | [address];[place] | | | | | | [address] | | | | + + + + + -+ | Absolute | 0.1Comment: Testing | 0 - 0.1 K/uL | EXTERNAL | | | Basophils | performed at [facility];888 | | LAB | | | | [address];[place] | | | | | | [address] | | | | + + + + + -+ | RBC | SLIDE SCANNED, AGREES | | EXTERNAL | | | Morphology | WITH AUTOMATED | | LAB | | | | RESULTS.Comment: Testing | | | | | | performed at [facility];[address] | | | | | | [address];[place] | | | | | | [address] | | | | + + + + + -+ | Na | 140Comment: Testing | 135 - 143 | EXTERNAL | | | | performed at [facility];888 | mmol/L | LAB | | | | [address];[place] | | | | | | [address] | | | | + + + + + -+ | K | 3.9Comment: Testing | 3.5 - 4.9 | EXTERNAL | | | | performed at [facility];888 | mmol/L | LAB | | | | [address];[place] | | | | | | [address] | | | | + + + + + -+ | Cl | 107Comment: Testing | 99 - 109 mmol/L | EXTERNAL | | | | performed at [facility];[address] | | LAB | | | | [address];[place] | | | | | | [address] | | | | + + + + + -+ | CO2 | 28Comment: Testing | 23 - 32 mmol/L | EXTERNAL | | | | performed at [facility];[address] | | LAB | | | | [address];[place] | | | | | | [address] | | | | + + + + + -+ | Anion Gap | 9Comment: Testing | 5 - 20 mmol/L | EXTERNAL | | | | performed at [facility];[address] | | LAB | | | | [address];[place] | | | | | | [address] | | | | + + + + + -+ | Glucose, | 97Comment: Testing | 65 - 99 mg/dL | EXTERNAL | | | Fasting | performed at [facility];[address] | | LAB | | | | [address];[place] | | | | | | [address] | | | | + + + + + -+ | BUN | 14Comment: Testing | 8 - 25 mg/dL | EXTERNAL | | | | performed at [facility];[address] | | LAB | | | | [address];[place] | | | | | | [address] | | | | + + + + + -+ | Creatinine | 0.98Comment: Testing | 0.70 - 1.30 | EXTERNAL | | | | performed at [facility];888 | mg/dL | LAB | | | | [address];[place] | | | | | | [address] | | | | + + + + + -+ | BUN/Creatin | 14Comment: Testing | | EXTERNAL | | | ine Ratio | performed at [facility];[address] | | LAB | | | | [address];[place] | | | | | | [address] | | | | + + + + + -+ | Calcium | 8.8Comment: Testing | 8.5 - 10.2 | EXTERNAL | | | | performed at [facility];888 | mg/dL | LAB | | | | [address];[place] | | | | | | [address] | | | | + + + + + -+ | Protein, | 6.9Comment: Testing | 6.3 - 8.2 g/dL | EXTERNAL | | | Total | performed at [facility];[address] | | LAB | | | | [address];[place] | | | | | | [address] | | | | + + + + + -+ | Albumin | 3.7Comment: Testing | 3.6 - 5.0 g/dL | EXTERNAL | | | | performed at [facility];888 | | LAB | | | | [address];[place] | | | | | | [address] | | | | + + + + + -+ | Globulin | 3.2Comment: Testing | 1.3 - 4.9 g/dL | EXTERNAL | | | | performed at [facility];888 | | LAB | | | | [address] [address];[place] | | | | | | [address] | | | | + + + + + -+ | A/G Ratio | 1.2Comment: Testing | 1.0 - 2.4 | EXTERNAL | | | | performed at [facility];[address] | | LAB | | | | [address];[place] | | | | | | [address] | | | | + + + + + -+ | Bilirubin | 0.9Comment: Testing | 0.1 - 1.5 mg/dL | EXTERNAL | | | Total | performed at [facility];[address] | | LAB | | | | [address];[place] | | | | | | [address] | | | | + + + + + -+ | ALP, | 60Comment: Testing | 35 - 115 U/L | EXTERNAL | | | External | performed at [facility];[address] | | LAB | | | | [address];[place] | | | | | | [address] | | | | + + + + + -+ | AST | 22Comment: Testing | 10 - 45 U/L | EXTERNAL | | | | performed at [facility];[address] | | LAB | | | | [address];[place] | | | | | | [address] | | | | + + + + + -+ | ALT | 37Comment: Testing | 10 - 65 U/L | EXTERNAL | | | | performed at [facility];[address] | | LAB | | | | [address];[place] | | | | | | [address] | | | | + + + [...] | | | | | | at [facility];[address] [facility] | | | | | | [address]vd;[place] [address] | | | | + + + + + -+ | CK, Total | 103Comment: Testing | 55 - 400 U/L | EXTERNAL | | | | performed at [facility];[address] | | LAB | | | | [facility] [address] [facility] [address];[place], [place] | | | | | | [address] | | | | + + + [...] | | | | | performed at [facility];[address] | | | | | | [address];[place] | | | | | | [address] | | | | + + + + + -+ | aPTT, | 26Comment: Testing | 23 - 32 seconds | EXTERNAL | | | Patient | performed at [facility];[address] | | LAB | | | | [address];[place] | | | | | | [address] | | | | + + + + + -+ | CK-MB | 2.9Comment: Testing | 0.5 - 3.6 ng/mL | EXTERNAL | | | | performed at [facility];[address] | | LAB | | | | [address];[place] | | | | | | [address] | | | | + + + [...] EXTERNAL | | | | performed at [facility];888 | uIU/mL | LAB | | | | [address];[place], [place] | | | | | | [address] | | | | + + + [...] EXTERNAL | | | | performed at [facility];[address] | | LAB | | | | [address];[place] | | | | | | [address] | | | | + + + [...] EXTERNAL | | | | performed at [facility];888 | | LAB | | | | [address];[place], [place] | | | | | | [address] | | | | + + + [...]
--- OUTSIDE RECORDS SUMMARY | ~2019-11-01 | XMS | Encounter Summary ---
Demographics + + + | Address | [address] | | | [place] [address] | + + + | Home Phone [...] Team Providers + +------+ + | Care Hris Analyst Name | Role | Phone [...] Provider Unknown | | | | | [place], [place] | [phone] | | | | | [address] | | | | | | [phone] | | | +--------+ + + + [...] + + + +---------+ + + | [place]-3 Fatty | CAPS, one capsule by | [...] | | | | | | [place] [address] | | | | | | [phone] | | | | | | | | +--------+ + + + + | 11/20/ | Implant | Cardiology | Daljit Singletary, | Remote Device | | 2018 | Monitor | | MD [address] | Interrogation | | | | | [place], | (Primary Dx); | | | | | [place] [address] | Presence of | | | | | [phone] | permanent cardiac | | | | [...]
--- OUTSIDE RECORDS SUMMARY | ~2019-11-01 | XMS | Encounter Summary ---
Demographics + + + | Address | [address] | | | [place] [address] | + + + | Home Phone [...] Providers + +------+ + | Care Customer Orders Clerk Name | Role | Phone | [...] 2015 | | CARDIOLOGY [address] | [place] BLANCHER [address] | | | | | [place], | [place], [place] | | | | | [place] [address] | [address] | | | | | [phone] | | | +--------+--------+ + + + [...] W | | | | | | [place], | | | | | | [place] [address] | | | | | | [phone] | | | | | | | | +--------+ + + + + | 11/20/ | Implant | Cardiology | Daljit Singletary, | Remote Device | | 2018 | Monitor | | [address] | Interrogation | | | | | [place], | (Primary Dx); | | | | | [place] [address] | Presence of | | | | | [phone] | permanent cardiac | | | | [...]
--- OUTSIDE RECORDS SUMMARY | ~2019-11-01 | XMS | Encounter Summary ---
Demographics + + + | Address | [address] | | | [place] [address] | + + + | Home Phone [...] Team Providers + +------+ + | Care Dross Skimmer Name | Role | Phone | + [...] | | | DDD | Scotty C, LIQUID LOADER | [facility] | | | | | (degenerativ | [address] [facility] | | | | | e disc | [facility] | MEDICAL | | | | | disease), | [address] | CENTER [address] | | | | | lumbar | B | [address] | | | | | Chronic | [place], [place] | [place], | | | | | left-sided | [address] | [place] [address] | | | | | low back | Phone: | Phone: | | | | | pain with | [phone] | [phone] | | | | | left-sided | Fax: | Fax: | | | | | sciatica | [phone] | [phone] | | | | | History of [...] | | | DDD | Scotty C, LIQUID LOADER | [address] | | | | | (degenerativ | [address] | [place], | | | | | e disc | [place] | [place] [address] | | | | | disease), | [address]IVE [address] | Phone: | | | | | lumbar | B | [phone] | | | | | Chronic | [place], [place] | Fax: | | | | | left-sided | [address] | [phone] | | | | | low back | Phone: | | | | | | pain with | [phone] | | | | | | left-sided | Fax: | | | | | | sciatica | [phone] | | | | | | History [...] + + | 07/01/ | Hospital | [facility] | Scotty Galdamez, | DDD (degenerative | | 2018 | Encounter | MED [facility] [address] | LIQUID LOADER [address] | disc disease), | | | | [address], | [address] | lumbar; Chronic | | | | [place] [address] | [place] [address] | left-sided low back | | | | [phone] | [phone] | pain with left-sided | | | [...] + + + +---------+ + + | [place]-3 Fatty | CAPS, one capsule by | [...] | | | | | | [place] [address] | | | | | | [phone] | | | | | | | | +--------+ + + + + | 11/20/ | Implant | Cardiology | AnshujohnsoncherelleShaistapawanotto, | Remote Device | | 2019 | Monitor | | [facility] | Interrogation | | | | | [facility] [place], | (Primary Dx); | | | | | [place] [address] | Presence of | | | | | [phone] | permanent cardiac | | | | [...]
--- OUTSIDE RECORDS SUMMARY | ~2019-11-01 | XMS | Encounter Summary ---
Demographics + + + | Address | [address] | | | [place] [address] | + + + | Home Phone [...] Providers + +------+ + | Care Barrel Raiser Name | Role | Phone | + [...] Other | | 2012 | | [facility] | DO [address] | | | | | [address] | [place] | | | | | [place] | [address] | | | | | [address] | | | | | | [phone] | | | +--------+ + + + [...] | | | | | | [place], | | | | | | [place] [address] | | | | | | [phone] | | | | | | | | +--------+ + + + + | 11/20/ | Implant | Cardiology | Daljit Singletary, | Remote Device | | 2018 | Monitor | | MD [address] [place] | Interrogation | | | | | [place], | (Primary Dx); | | | | | [place] [address] | Presence of | | | | | [phone] | permanent cardiac | | | | [...]
--- OUTSIDE RECORDS SUMMARY | ~2019-11-01 | XMS | Encounter Summary ---
Demographics + + + | Address | [address] | | | [place] [address] | + + + | Home Phone [...] Providers + +------+ + | Care Cutter Grinder Name | Role | Phone | + +------+ + PCP | Unavailable | + +------+ + Encounter Details +--------+ + + + + | Date | Type | Department | Care Team | Description | +--------+ + + + + | 10/29/ | Hospital | [facility] | Pia Akhtar | | | 2003 | Encounter | CONVERSION [address] | [address] | | | | | [address] | [address] | | | | | [place] | [place] [address] | | | | | [address] | [phone] | | | | | [phone] | | | +--------+ + + + [...] | | | | | | [place] [address] | | | | | | [phone] | | | | | | | | +--------+ + + + + | 11/20/ | Implant | Cardiology | Daljit Singletary, | Remote Device | | 2019 | Monitor | | MD [place] | Interrogation | | | | | [facility] [place], | (Primary Dx); | | | | | [place] [address] | Presence of | | | | | [phone] | permanent cardiac | | | | [...]
--- OUTSIDE RECORDS SUMMARY | ~2019-11-01 | XMS | Encounter Summary ---
Demographics + + + | Address | [address] | | | [place] [address] | + + + | Home Phone [...] Providers + +------+ + | Care Assistant Branch Operations Manager Name | Role | Phone [...] 2019 | | GASTROENTEROLOGY | [address], [place] | | | | | [address] [place] | [address] [place], [place] | | | | | [address] [place], [place] | [address] | | | | | [address] | | | | | | [phone] | | | +--------+ + + + [...] [address] | | | | | | [address] [place], | | | | | | [place] [address] | | | | | | [phone] | | | | | | | | +--------+ + + + + | 11/20/ | Implant | Cardiology | Daljit Singletary, | Remote Device | | 2018 | Monitor | | [address] | Interrogation | | | | | [place], | (Primary Dx); | | | | | [place] [address] | Presence of | | | | | [phone] | permanent cardiac | | | | [...]
--- OUTSIDE RECORDS SUMMARY | ~2019-11-01 | XMS | Encounter Summary ---
Demographics + + + | Address | [address] | | | [place] [address] | + + + | Home Phone [...] Team Providers + +------+ + | Care Ultrasound Technol Name | Role | Phone | + [...] + + | 06/25/ | [facility] | [facility] | [place], | SINUS BRADYCARDIA | | 2013 | Visit | CARDIOLOGY [address] | [place] [place] [address] | (Primary Dx); | | | | [place], | [place], | Symptomatic PVCs; | | | | [place] [address] | [place] [address] | Coronary artery | | | | [phone] | [phone] | disease; | | | | | [...] time, he was admitted over observation at [facility] for a chest pain. Aortogram revealed [...] needed for Chest pain. 25 tablet 12 [place]-3 Fatty Acids (SALMON OIL-1000 PO) CAPS, one capsule by mouth daily twice daily ONE TOUCH DELICA LANCETS [facility] Check glucose as [...] HGBEX 16.1 01/25/2014 I reviewed records from [facility] for emergency department visit o n 05/26/2014 [...] completely be ruled out. [facility]. [facility] 12/25/13, shows non critical coronary artery [...] yard. He is in class I-II of [place] Heart Association funct ional class. There are [...] to go back in 3 days to [place] for an attempt of ablation under general [...] dizziness. He is in class I-II of [place] Heart Ass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 There are no [...] made to ensure accuracy; however, inadvertent computerized merchandising assistant errors may be pre sent. Electronically [...] W | | | | | | [place], | | | | | | [place] [address] | | | | | | [phone] | | | | | | | | +--------+ + + + + | 11/20/ | Implant | Cardiology | Daljit Singletary, | Remote Device | | 2018 | Monitor | | [address] | Interrogation | | | | | [place], | (Primary Dx); | | | | | [place] [address] | Presence of | | | | | [phone] | permanent cardiac | | | | [...] of unspecified type of vessel, | | skagway or graft | + + | Hypertension Unspecified essential hypertension | + + | Syncope Syncope and collapse | + + | Hyperlipidemia Other and unspecified hyperlipidemia | + + documented in this encounter
--- OUTSIDE RECORDS SUMMARY | ~2019-11-01 | XMS | Encounter Summary ---
Demographics + + + | Address | [address] | | | [place] [address] | + + + | Home Phone [...] Team Providers + +------+ + | Care Lap Machine Operator Name | Role | Phone [...] [address] | | | | | | [place], [place] | (Fax) | | | | | [address] | | | | | | [phone] | | | +--------+ + + + [...] | | | | | | [place] [address] | | | | | | [phone] | | | | | | | | +--------+ + + + + | 11/20/ | Implant | Cardiology | Daljit Singletary, | Remote Device | | 2018 | Monitor | | [address] [facility] | Interrogation | | | | | [place], | (Primary Dx); | | | | | [place] [address] | Presence of | | | | | [phone] | permanent cardiac | | | | [...]
--- OUTSIDE RECORDS SUMMARY | ~2019-11-01 | XMS | Encounter Summary ---
Demographics + + + | Address | [address] | | | [place] [address] | + + + | Home Phone [...] Team Providers + +------+ + | Care Epic Kaleidoscope Analyst Name | Role | Phone | + +------+ + | Kirk French MD | PCP | | + +------+ + Encounter Details +--------+ + + + + | Date | Type | Department | Care Team | Description | +--------+ + + + + | 01/18/ | Hospital | [facility] | Conversion | Diagnosis unknown | | 2017 | Encounter | CONVERSION [address] | Transaction, | | | | | [address] | Provider Unknown | | | | | [place], [place] | [phone] | | | | | [address] | | | | | | [phone] | | | +--------+ + + + [...] + + + +---------+ + + | [place]-3 Fatty | CAPS, one capsule by | [...] | | | | | | [place] [address] | | | | | | [phone] | | | | | | | | +--------+ + + + + | 11/20/ | Implant | Cardiology | Daljit Singletary, | Remote Device | | 2019 | Monitor | | MD [address] [facility] | Interrogation | | | | | [place], | (Primary Dx); | | | | | [place] [address] | Presence of | | | | | [phone] | permanent cardiac | | | | [...]
--- OUTSIDE RECORDS SUMMARY | ~2019-11-01 | XMS | Encounter Summary ---
Demographics + + + | Address | [address] | | | [place] [address] | + + + | Home Phone [...] Providers + +------+ + | Care Door Patcher Name | Role | Phone | + +------+ + | Kirk French MD | PCP | | + +------+ + Encounter Details +--------+---------+ + + + | Date | Type | Department | Care Team | Description | +--------+---------+ + + + | 09/26/ | Office | [facility] | Kirk French | Weight loss (Primary | | 2018 | Visit | [facility] | MD [address] | Dx); Bipolar | | | | PRIMARY CARE [address] | affective disorder, | | | | [address] | [place] [address] | remission status | | | | [place], [place] | [phone] | unspecified (HCC); | | | | [address] | | Mixed anxiety | | | | [phone] | | depressive disorder; | | | [...] Premature ventricular contraction [facility] health care 06/26/2013 LAST PSA:12/16/2010 [...] Surgeon: Daljit Singletary MD; Location: [facility] CV LAB CARDIAC CATHERIZATION N/A 01/25/2019 Procedure: CV Cor Angio; Surgeon: Daljit Singletary MD; Location: [facility] CV LAB COLONOSCOPY N/A 12/24/2017 Procedure: COLONOSCOPY; Surgeon: Emmanuel Daniel MD; Location: [facility] MEDICAL PROCEDURE UNIT COLONOSCOPY N/A 01/05/2019 Procedure: COLONOSCOPY; Surgeon: Emmanuel Daniel MD; Location: [facility] MEDICAL PROCEDURE UNIT EGD 12/24/2017 HARDWARE REMOVAL [...] Surgeon: Emmanuel Daniel MD; Location: [facility] MEDICAL PROCEDURE UNIT UPPER GASTROINTESTINAL ENDOSCOPY N/A 01/05/2019 Procedure: EGD; Surgeon: Emmanuel Daniel MD; Location: [facility] MEDICAL PROCEDURE UNIT URETEROSCOPY Left 04/13/2019 Procedure: Cystoscopy, Left ureteroscopy with laser lithotripsy, Left ureteral stent place ment; Surgeon: Matthew Uriarte MD; Location: [facility] MAIN OR VASECTOMY Social History Socioeconomic History [...] ONE TABLET UNDER THE TONGUE EVERY 5 HI NUTES NEEDED FOR CHEST PAIN 250 tablet 0 [place]-3 Fatty Acids (SALMON OIL-1000 PO) CAPS, one capsule by mouth daily twice daily ondansetron (ZOFRAN ODT) 4 mg disintegrating tablet Take 4 mg by mouth every 8 hours as needed for Nausea. ONE TOUCH DELICA LANCETS [facility] [...] PLT 169 06/02/2019 No results found for: PHRQPTNW60 No results found for: FOLATE No results [...] Co multiple ER visits Going again to [facility] tomorrow Already followed by [...] dollars a month. We will defer to [facility], perhaps to have some [...] | | | | | | [place] [address] | | | | | | [phone] | | | | | | | | +--------+ + + + + | 11/20/ | Implant | Cardiology | Daljit Singletary, | Remote Device | | 2018 | Monitor | | [address] | Interrogation | | | | | [place], | (Primary Dx); | | | | | [place] [address] | Presence of | | | | | [phone] | permanent cardiac | | | | [...]
--- OUTSIDE RECORDS SUMMARY | ~2019-11-01 | XMS | Encounter Summary ---
Demographics + + + | Address | [address] | | | [place] [address] | + + + | Home Phone [...] Providers + +------+ + | Care Rn Homecare Name | Role | Phone | + +------+ + | Michael Amanda DO | PCP | | + +------+ + Encounter Details +--------+ + + + + | Date | Type | Department | Care Team | Description | +--------+ + + + + | 05/11/ | Hospital | [facility] | Conversion | Lumbago; | | 2013 | Encounter | MEDICAL CENTER XRAY | Transaction, | Postlaminectomy | | | | [address] | Provider Unknown | syndrome, cervical | | | | [place], [place] | | region; Cervicalgia | | | | [address] | (Fax) | | | | | [phone] | | | +--------+ + + + [...] 1147 Date of Service: 05/11/141145 Status: Signed Satellite Television Installer: Christine Mcgraw Report called to Brittany morejon [...] W | | | | | | [place], | | | | | | [place] [address] | | | | | | [phone] | | | | | | | | +--------+ + + + + | 11/20/ | Implant | Cardiology | Daljit Singletary, | Remote Device | | 2018 | Monitor | | [address] | Interrogation | | | | | [place], | (Primary Dx); | | | | | [place] [address] | Presence of | | | | | [phone] | permanent cardiac | | | | [...]
--- OUTSIDE RECORDS SUMMARY | ~2019-11-01 | XMS | Encounter Summary ---
Demographics + + + | Address | [address] [place] [address] | | | [place] [address] | + + + | Home Phone [...] [place] | | | | | [address] | | + + + + + Care Team Providers + +------+ + | Care Health Inspector Food Name | Role | Phone | + [...] Yao | | | | | at [facility] | [facility] | | | | | [address] | [place] [address] | | | | | Loop Mailcode: | | | | | | [id number] | | | | | | [facility] | | | | | | [place], [place] | | | | | | [address] | | | | | | [phone] | | | +--------+ + + + [...] view image for the detailed interpretation from [facility] results. | CARDIOLOGY | + + + + + + + + | Performing | Address | City/State/Zipcode | Phone Number | | Organization | | | | + + + + + | [facility] | [address] | [place], [place] | | | CARDIOLOGY | [address] | [address] | | + + + + + documented in this encounter Visit Diagnoses Not on filedocumented in this encounter"
--- OUTSIDE RECORDS SUMMARY | ~2019-11-01 | XMS | Encounter Summary ---
Demographics + + + | Address | [address] | | | [place] [address] | + + + | Home Phone [...] Providers + +------+ + | Care Senior Software Engineering Manager Name | Role | Phone | [...] | 05/08/ | Telephone | [facility] | Emmanuel Daniel MD | Other | | 2019 | | GASTROENTEROLOGY | [address], [place] | | | | | [address] [place] | [address] [place], [place] | | | | | [address] [place], [place] | [address] | | | | | [address] | | | | | | [phone] | | | +--------+ + + + [...] | | | | | | [place], | | | | | | [place] [address] | | | | | | [phone] | | | | | | | | +--------+ + + + + | 11/20/ | Implant | Cardiology | Daljit Singletary, | Remote Device | | 2018 | Monitor | | MD [address] | Interrogation | | | | | [place], | (Primary Dx); | | | | | [place] [address] | Presence of | | | | | [phone] | permanent cardiac | | | | [...]
--- OUTSIDE RECORDS SUMMARY | ~2019-11-01 | XMS | Encounter Summary ---
Demographics + + + | Address | [address] | | | [place] [address] | + + + | Home Phone [...] Team Providers + +------+ + | Care Harbor Master Name | Role | Phone | [...] [address] | | | | | [place], | [place], | | | | | [place] [address] | [place] [address] | | | | | [phone] | [phone] | | | | | | | [...] W | | | | | | [place], | | | | | | [place] [address] | | | | | | [phone] | | | | | | | | +--------+ + + + + | 11/20/ | Implant | Cardiology | Daljit Singletary, | Remote Device | | 2018 | Monitor | | [address] | Interrogation | | | | | [place], | (Primary Dx); | | | | | [place] [address] | Presence of | | | | | [phone] | permanent cardiac | | | | [...]
--- OUTSIDE RECORDS SUMMARY | ~2019-11-01 | XMS | Encounter Summary ---
Demographics + + + | Address | [address] | | | [place] [address] | + + + | Home Phone [...] Team Providers + +------+ + | Care Template Layout Worker Name | Role | Phone | + +------+ + | Kirk French MD | PCP | | + +------+ + Encounter Details +--------+ + + + + | Date | Type | Department | Care Team | Description | +--------+ + + + + | 04/07/ | Hospital | [facility] | Pia Akhtar | Spinal stenosis of | | 2016 | Encounter | MED CTR XRAY [address] | MD [address] | lumbar region | | | | [place] | [address] | | | | | [place] [address] | [place] [address] | | | | | [phone] | [phone] | | | | | | | [...] + + + +---------+ + + | [place]-3 Fatty | CAPS, one capsule by | [...] | | | | | | [place] [address] | | | | | | [phone] | | | | | | | | +--------+ + + + + | 11/20/ | Implant | Cardiology | Daljit Singletary, | Remote Device | | 2018 | Monitor | | [address] [facility] | Interrogation | | | | | [place], | (Primary Dx); | | | | | [place] [address] | Presence of | | | | | [phone] | permanent cardiac | | | | [...]
--- OUTSIDE RECORDS SUMMARY | ~2019-11-01 | XMS | Encounter Summary ---
Demographics + + + | Address | [address] | | | [place] [address] | + + + | Home Phone [...] Providers + +------+ + | Care Shear Helper Name | Role | Phone | + +------+ + PCP | Unavailable | + +------+ + Encounter Details +--------+ + + + + | Date | Type | Department | Care Team | Description | +--------+ + + + + | 01/17/ | [facility] | [facility] | Jonas Ramos, | | | 2009 | Encounter | MED CTR EMERGENCY | MD [address] | | | | | CENTER [address] | [facility] | | | | | [place] | [place] [address] | | | | | [address] | [phone] | | | | | [phone] | | | +--------+ + + + [...] | | | | | | [place], | | | | | | [place] [address] | | | | | | [phone] | | | | | | | | +--------+ + + + + | 11/20/ | Implant | Cardiology | Daljit Singletary, | Remote Device | | 2019 | Monitor | | MD Sim [facility] | Interrogation | | | | | [place], | (Primary Dx); | | | | | [place] [address] | Presence of | | | | | [phone] | permanent cardiac | | | | [...]
--- OUTSIDE RECORDS SUMMARY | ~2019-11-01 | XMS | Clinical Summary ---
Demographics + + + | Address | [address] | | | [place] [address] | + + + | Home Phone [...] Team Providers + +------+ + | Care Revenue Cycle Consultant Name | Role | Phone | [...] | | + + + +---------+------+------+-------+ | [place]-3 Fatty | CAPS, one capsule by | [...] | | | | | | | cachil dehe coronary | | | | | | | | artery of cachil dehe | | | | | | | [...] + + | Coronary artery disease involving cachil dehe coronary artery of | 12/21/2013 | | cachil dehe heart without angina pectoris | | + [...] attenuation cannot | | completely be ruled out.[facility] 12/25/13, shows non critical coronary | | [...] | | CT Angiogram chest w/constrast 05/26/14 [facility] | + + + + + [...] ventricular arrhythmia performed by Dr. Gambino at [facility] on 01/30/2013. Patient had spontaneous PVCs [...] back in 3 days to | | [place] for an attempt of ablation under general [...] IMPLANTED GENERATOR | | Medtronic DDD [id number] 06/14/09 RV LEAD Medtronic Active | | Bipolar CapSureFix 4076 [id number] 06/14/09 A LEAD Medtronic | | Active Bipolar CapSurFix 4076 [id number] 06/14/09 | + + + +---+ | [...] | Heart Cath, 02/29/2012, LVEF is 65%, [facility] | | Nuclear Medicine Myocardial Gated Stress Test, 05/25/2009, EF 53 | | % during rest and 52% during stress. [facility], | | [place]antine Sestamibi Stress Test, 06/14/2008, LVEF is | | 60%, [facility] 12/25/13, shows noncritical | | coronary [...] Plan: Nonobstructive CAD noted | | on [facility] from 2013, no EKG changes, and negative [...] | | 2018 | | | MD Bera | | +--------+ + + + + [...] + + | Mother | | | [place] | | | | (Age | | [...] | | | | | | [place] [address] | | | | | | [phone] | | | | | | | | +--------+ + + + + | 11/20/ | Implant | Cardiology | Daljit Singletary, | Remote Device | | 2019 | Monitor | | [address] [facility] | Interrogation | | | | | [place], | (Primary Dx); | | | | | [place] [address] | Presence of | | | | | [phone] | permanent cardiac | | | | [...] Left: | COOK | | 09/27/ | [id number] | | 22-32 - [id number]: | | [employer] | [employer] | | 2020 | / | | Qty: 1 on 04/13/2019 by | | | - [place] | | | /[id number] | | Matthew Uriarte MD at | | | | | | 57 | | [facility] | | | | | | | | [facility] | | | | | [...] +--------+ +---------+--------+ | MEDICARE | MEDICA | [id number] | 01/21/20 | [phone] | | Medica | | | RE | | 01-Pre | 5 | | re | | | PART A | | sent | | | | | | AND B | | | | | | + +--------+ +--------+ +---------+--------+ | MEDICARE | MEDICA | [id number] | 01/21/20 | [phone] | | Medica | | | RE | | 01-Pre | 5 | | re | | | PART A | | sent | | | | | | AND B | | | | | | + +--------+ +--------+ +---------+--------+ | AARP | AARP | [id number] | | [phone] | | Indemn | | | MDCR | | 016-Pr | 0 | | ity | | | SUPPL | | esent | | | | + +--------+ +--------+ +---------+--------+ | AARP | AARP | [id number] | 11/22/19 | [phone] | | Indemn [...] Person | Self | [birth year] | [address] | | Kirk | cristo/Per | | 1960 | [phone] | [place], [place] | | | [place] | | | 8 (Home) | [address] | + +--------+ +--------+ + + | Moe Sanchez | Person | Self | [birth year] | | [address] | | Kirk | al/Fam | | 1960 | [phone] | [address] [place] | | | [place] | | | 8 (Home) | [address] | + +--------+ +--------+ + + | Moe Sanchez | Dave | Self | [birth year] | | [address] | | Kirk | Republican | | 1960 | [phone] | [address] [place] | | | [place] | | | [address] ([place]) | [address] | | | danyely | | | | | + +--------+ +--------+ + + Advance Directives + + + + + | Type | Date Recorded | Patient | Explanation | | | | Social Worker Psychiatric | | + + + + + | Power of | | | | | Fermenting Cellars Receiver | | | | + + + [...]
--- OUTSIDE RECORDS SUMMARY | ~2019-11-01 | XMS | Encounter Summary ---
Demographics + + + | Address | [address] | | | [place] [address] | + + + | Home Phone [...] Providers + +------+ + | Care Field Artillery Fire Control Man Name | Role | Phone | [...] + | 01/02/ | Telephone | [facility] | Daljit Singletary, | Other (chest pain) | | 2018 | | CARDIOLOGY [address] | MD [address] [place] | | | | | [place], | [place], | | | | | [place] [address] | [place] [address] | | | | | [phone] | [phone] | | | | | | | [...] W | | | | | | [place], | | | | | | [place] [address] | | | | | | [phone] | | | | | | | | +--------+ + + + + | 11/20/ | Implant | Cardiology | Daljit Singletary, | Remote Device | | 2018 | Monitor | | MD Sim [facility] | Interrogation | | | | | [address] [place], | (Primary Dx); | | | | | [place] [address] | Presence of | | | | | [phone] | permanent cardiac | | | | [...]
--- OUTSIDE RECORDS SUMMARY | ~2019-11-01 | XMS | Encounter Summary ---
Demographics + + + | Address | [address] | | | [place] [address] | + + + | Home Phone [...] Providers + +------+ + | Care Senior Genetic Counselor Name | Role | Phone | + +------+ + PCP | Unavailable | + +------+ + Encounter Details +--------+ + + + + | Date | Type | Department | Care Team | Description | +--------+ + + + + | 02/28/ | [facility] | [facility] | Geri Angel, | | | 2011 | Encounter | MED CTR XRAY [address] | CATH LAB MANAGER [address] | | | | | [place] | [address] [place] | | | | | [place] [address] | [address] | | | | | [phone] | | | +--------+ + + + [...] | | | | | | [place] [address] | | | | | | [phone] | | | | | | | | +--------+ + + + + | 11/20/ | Implant | Cardiology | Daljit Singletary, | Remote Device | | 2019 | Monitor | | [address] | Interrogation | | | | | [place], | (Primary Dx); | | | | | [place] [address] | Presence of | | | | | [phone] | permanent cardiac | | | | [...] Performed At | + + + | [facility] Diagnostic [facility] | [place] [facility] | | [address] [facility] [place] [place] [facility] | | LEFT HEART CATHETERIZATION [...] was taken to | | | Cardiac Tug Master. He was prepared and draped in the usual fashion | | | under a sterile technique and local anesthesia, percutaneous access | | | was obtained using #6- British sheath in the right femoral artery. | | | Right heart cath was not performed in this patient. Left | | | ventriculography was performed using #6-British pigtail catheter. | | | The selective coronary angiography were then performed in several | | | sagittal and oblique projection using the 6-British JL 4 and #6 British | | | 3DRC diagnostic catheters. The [...] Transcribed | | | Date/Time: 02/29/2012 09:09 Assorter: | | | <Electronically Signed by Daljit Singletary MD [facility] FASE> 02/29/12 | | | 1002 | | + + + + + | Procedure Note | + + | Kevin, Rad Conversion - 12/29/2013 5:04 PM [facility] | | Diagnostic Imaging Department | | [address] [place] | | | | | | [...] patient was taken to Cardiac | | Tug Master. He was prepared and draped in the usual fashion under a sterile | | technique and local anesthesia, percutaneous access was obtained using #6- | | British sheath in the right femoral artery. Right heart cath was not performed | | in this patient. Left ventriculography was performed using #6-British pigtail | | catheter. The selective coronary angiography were then performed in several | | sagittal and oblique projection using the 6-British JL 4 and #6 British 3DRC | | diagnostic catheters. The patient [...] | Transcribed Date/Time: 02/29/2012 09:09 | | Assorter: | | <Electronically Signed by Daljit Singletary MD [facility] ADELINE> 02/29/12 1002 | + + [...]
--- OUTSIDE RECORDS SUMMARY | ~2019-11-01 | XMS | Encounter Summary ---
Demographics + + + | Address | [address] | | | [place] [address] | + + + | Home Phone [...] Team Providers + +------+ + | Care Enforcement Safety Officer Name | Role | Phone | + +------+ + | Michael Amanda DO | PCP | | + +------+ + Encounter Details +--------+ + + + + | Date | Type | Department | Care Team | Description | +--------+ + + + + | 04/03/ | Hospital | [facility] | Jay Gambino MD | | | 2012 - | Encounter | [facility] | [address] | | | | | CARDIAC TRANSPLANT | [address] [place] | | | 04/04/ | | [address] | [place] [address] | | | 2012 | | [place] | [phone] | | | | | [address] | | | | | | [phone] | | | +--------+ + + + [...] 1960 ADMISSION DATE: 04/03/2013 DISCHARGE DATE: 04/04/2013 [id number] / [id number] ADMISSION DIAGNOSES: 1. Symptomatic premature ventricular contractions [...] study and ablati on. MOE GAY ADM:04/03/13 [id number] 04/04/13 [place] DISCHARGE SUMMARY [id number] [facility] PARISA Hughes [facility] MD Meena Pleitez THIS REPORT IS CONFIDENTIAL AND NOT TO BE RELEASED WITHOUT PROPER AUTHORIZATION. [facility] Mr. Gay was taken to the [...] 180 mg once daily. MOE GAY ADM:04/03/13 [id number] 04/04/13 DIS [place] DISCHARGE SUMMARY [id number] [facility] PARISA Hughes [facility] MD Meena Pleitez THIS REPORT IS CONFIDENTIAL AND NOT TO BE RELEASED WITHOUT PROPER AUTHORIZATION. [facility] 5. Docusate sodium 2 tablets once daily. 6. Marinol 10 mg twice daily. 7. Metoprolol succinate 200 mg once daily. 8. Oxycodone 10 mg 10 mg oral as needed. 9. Oxycodone 30 mg oral twice daily. 10. Pravastatin 40 mg at bedtime. 11. Promethazine 25 mg as needed. 12. Ranitidine 1 to 2 tablets once daily. 13. Everett oil 2 tablets twice daily. 14. Valacyclovir 500 mg once daily. There were no new medications or medication dosage changes at time of discharge. PLAN: 1. Mr. Gay will be discharged home on medications as noted above, including his usual m edications of diltiazem and metoprolol. 2. He will be seen and followed by Dr. Gambino on 16 at 9:00 a.m. at [facility], [address]. 3. He will contact our office earlier than scheduled appointment should he have any diffic ulty prior to that time. PARISA Hughes MD A P RICHIE/med #[id number] cc: MD Dona Pleitez ARNP Suwong Wongsuwan, MD Electronically Signed 04/12/13 1400 PARISA Hughes Electronically Signed 05/22/13 1245 Jay Gambino MD MOE GAY ADM:04/03/13 [id number] 04/04/13 [place] DISCHARGE SUMMARY [id number] [facility] PARISA Hughes [facility] Jay Gambino MD R THIS REPORT IS CONFIDENTIAL AND NOT TO BE RELEASED WITHOUT PROPER AUTHORIZATION.Electronica lly signed by Jael Brown at 05/22/2013 1:25 PM Dona Grossman ARNP - 04/04/2013 9:05 AM PDT PATIENT NAME: MOE GAY Sex/Age: M / 53Y : 1960 ADMISSION DATE: 04/03/2013 DISCHARGE DATE: 04/04/2013 [id number] / [id number] ADMISSION DIAGNOSES: 1. Symptomatic premature ventricular contractions [...] and ablati on. MOE GAY Jaimee ADM:04/03/13 [id number] 04/04/13 [place] DISCHARGE SUMMARY [id number] [facility] PARISA Hughes [facility] MD Meena Pleitez THIS REPORT IS CONFIDENTIAL AND NOT TO BE RELEASED WITHOUT PROPER AUTHORIZATION. [facility] Mr. Gay was taken to the [...] 180 mg once daily. MOE GAY ADM:04/03/13 [id number] 04/04/13 DIS [place] DISCHARGE SUMMARY [id number] [facility] PARISA Hughes [facility] MD Meena Pleitez THIS REPORT IS CONFIDENTIAL AND NOT TO BE RELEASED WITHOUT PROPER AUTHORIZATION. [facility] 5. Docusate sodium 2 tablets once daily. 6. Marinol 10 mg twice daily. 7. Metoprolol succinate 200 mg once daily. 8. Oxycodone 10 mg 10 mg oral as needed. 9. Oxycodone 30 mg oral twice daily. 10. Pravastatin 40 mg at bedtime. 11. Promethazine 25 mg as needed. 12. Ranitidine 1 to 2 tablets once daily. 13. Everett oil 2 tablets twice daily. 14. Valacyclovir 500 mg once daily. There were no new medications or medication dosage changes at time of discharge. PLAN: 1. Mr. Gay will be discharged home on medications as noted above, including his usual m edications of diltiazem and metoprolol. 2. He will be seen and followed by Dr. Gambino on 16 at 9:00 a.m. at [facility], [address]. 3. He will contact our office earlier than scheduled appointment should he have any diffic ulty prior to that time. PARISA Hughes MD A P RICHIE/med #[id number] cc: MD Dona Pleitez ARNP Suwong Wongsuwan, MD Electronically Signed 04/12/13 1400 PARISA Hughes MOE GAY ADM:04/03/13 [id number] 04/04/13 DIS [place] DISCHARGE SUMMARY [id number] [facility] PARISA Hughes [place] [facility] MD Meena Pleitez THIS REPORT [...] + + + +---------+ + + | [place]-3 Fatty | CAPS, one capsule by | [...] | | | | | | [place] [address] | | | | | | [phone] | | | | | | | | +--------+ + + + + | 11/20/ | Implant | Cardiology | Daljit Singletary, | Remote Device | | 2019 | Monitor | | [facility] | Interrogation | | | | | [place], | (Primary Dx); | | | | | [place] [address] | Presence of | | | | | [phone] | permanent cardiac | | | | [...] + + + | Glucose | 94Comment: Kazakh | 65 - 99 mg/dL | [facility] [...] | | | | failure.For | | [place]OM[place] | | | | Americans, multiply the [...] + + | YESSY SACRED | [address] | [place] [address] | | | [facility] | | | | | LABORATORY [...] + + | YESSY JONES | [address] | [place] [address] | | | [facility] | | | | | LABORATORY | | | | + + + + + documented in this encounter Visit Diagnoses Not on filedocumented in this encounter"
--- OUTSIDE RECORDS SUMMARY | ~2019-11-01 | XMS | Encounter Summary ---
Demographics + + + | Address | [address] | | | [place] [address] | + + + | Home Phone [...] Team Providers + +------+ + | Care Turbine Technician Name | Role | Phone | + +------+ + PCP | Unavailable | + +------+ + Encounter Details +--------+ + + + + | Date | Type | Department | Care Team | Description | +--------+ + + + + | 08/26/ | Hospital | [facility] | | | | 2009 | Encounter | MED CTR LABORATORY | | | | | | [address] | | | | | | [place] | | | | | | [address] | | | | | | [phone] | | | +--------+ + + + [...] | | | | | | [place] [address] | | | | | | [phone] | | | | | | | | +--------+ + + + + | 11/20/ | Implant | Cardiology | Daljit Singletary, | Remote Device | | 2018 | Monitor | | [address] [facility] | Interrogation | | | | | [place], | (Primary Dx); | | | | | [place] [address] | Presence of | | | | | [phone] | permanent cardiac | | | | [...]
--- OUTSIDE RECORDS SUMMARY | ~2019-11-01 | XMS | Encounter Summary ---
Demographics + + + | Address | [address] | | | [place] [address] | + + + | Home Phone [...] Providers + +------+ + | Care Lab Asst Name | Role | Phone | [...] + + | 08/04/ | Telephone | [facility] | Silvia, | Other (4 week event | | 2017 | | CARDIOLOGY [address] | PARISA [address] | monitor ) | | | | [place], | [place], | | | | | [place] [address] | [place] [address] | | | | | [phone] | [phone] | | | | | | | [...] W | | | | | | [place], | | | | | | [place] [address] | | | | | | [phone] | | | | | | | | +--------+ + + + + | 11/20/ | Implant | Cardiology | Daljit Singletary, | Remote Device | | 2018 | Monitor | | [address] [place] | Interrogation | | | | | [place], | (Primary Dx); | | | | | [place] [address] | Presence of | | | | | [phone] | permanent cardiac | | | | [...]
--- OUTSIDE RECORDS SUMMARY | ~2019-11-01 | XMS | Encounter Summary ---
Demographics + + + | Address | [address] | | | [place] [address] | + + + | Home Phone [...] Team Providers + +------+ + | Care Pct Name | Role | Phone | + [...] [address] [place] | | | | | [place], [place] | [address] | | | | | [address] | [place] [address] | | | | | [phone] | [phone] | | | | | | | [...] W | | | | | | [place], | | | | | | [place] [address] | | | | | | [phone] | | | | | | | | +--------+ + + + + | 11/20/ | Implant | Cardiology | Daljit Singletary, | Remote Device | | 2018 | Monitor | | [address] | Interrogation | | | | | [place], | (Primary Dx); | | | | | [place] [address] | Presence of | | | | | [phone] | permanent cardiac | | | | [...]
--- OUTSIDE RECORDS SUMMARY | ~2019-11-01 | XMS | Encounter Summary ---
Demographics + + + | Address | [address] | | | [place] [address] | + + + | Home Phone [...] Providers + +------+ + | Care Site Physician Name | Role | Phone | [...] + | 01/25/ | Telephone | [facility] | Daljit Singletary, | Appointment | | 2017 | | CARDIOLOGY [address] | MD [address] [place] | | | | | [place], | [place], | | | | | [place] [address] | [place] [address] | | | | | [phone] | [phone] | | | | | | | [...] W | | | | | | [place], | | | | | | [place] [address] | | | | | | [phone] | | | | | | | | +--------+ + + + + | 11/20/ | Implant | Cardiology | Daljit Singletary, | Remote Device | | 2018 | Monitor | | MD [address] [place] | Interrogation | | | | | [place], | (Primary Dx); | | | | | [place] [address] | Presence of | | | | | [phone] | permanent cardiac | | | | [...]
--- OUTSIDE RECORDS SUMMARY | ~2019-11-01 | XMS | Encounter Summary ---
Demographics + + + | Address | [address] | | | [place] [address] | + + + | Home Phone [...] Providers + +------+ + | Care Oracle Financials Consultant Name | Role | Phone | [...] 2014 | | CARDIOLOGY [address] | LABORER [employer] [address] [place] | edema and chest | | | | [place], | [facility] [place] | pain) | | | | [place] [address] | [address] | | | | | [phone] | | | +--------+ + + + [...] W | | | | | | [place], | | | | | | [place] [address] | | | | | | [phone] | | | | | | | | +--------+ + + + + | 11/20/ | Implant | Cardiology | Daljit Singletary, | Remote Device | | 2018 | Monitor | | MD Sim [facility] | Interrogation | | | | | [place], | (Primary Dx); | | | | | [place] [address] | Presence of | | | | | [phone] | permanent cardiac | | | | [...]
--- OUTSIDE RECORDS SUMMARY | ~2019-11-01 | XMS | Encounter Summary ---
Demographics + + + | Address | [address] | | | [place] [address] | + + + | Home Phone [...] Providers + +------+ + | Care Clinical Research Nurse Name | Role | Phone | [...] + + | 02/01/ | Telephone | [facility] | Silvia, | Other (unable to | | 2013 | | CARDIOLOGY [address] | PARISA [place] [address] | take the isosorbide) | | | | [place], | [place], | | | | | [place] [address] | [place] [address] | | | | | [phone] | [phone] | | | | | | | [...] | | | | | | [place], | | | | | | [place] [address] | | | | | | [phone] | | | | | | | | +--------+ + + + + | 11/20/ | Implant | Cardiology | Daljit Singletary, | Remote Device | | 2018 | Monitor | | [address] [place] | Interrogation | | | | | [place], | (Primary Dx); | | | | | [place] [address] | Presence of | | | | | [phone] | permanent cardiac | | | | [...] of unspecified type of | | vessel, bad river band or graft | + + | Hypertension Unspecified essential hypertension | + + | Hyperlipidemia Other and unspecified hyperlipidemia | + + documented in this encounter"
--- OUTSIDE RECORDS SUMMARY | ~2019-11-01 | XMS | Encounter Summary ---
Demographics + + + | Address | [address] | | | [place] [address] | + + + | Home Phone [...] Providers + +------+ + | Care Data Systems Manager Name | Role | Phone | [...] | CARDIOLOGY [address] | [address] | (Primary Dx); | | | | [place], | [place], | Tachycardia; | | | | [place] [address] | [place] [address] | Coronary artery | | | | [phone] | [phone] | disease involving | | | | | | [place] coronary | | | | | | artery of [place] | | | | | | heart [...] W | | | | | | [place], | | | | | | [place] [address] | | | | | | [phone] | | | | | | | | +--------+ + + + + | 11/20/ | Implant | Cardiology | Daljit Singletary, | Remote Device | | 2019 | Monitor | | MD [facility] [place] | Interrogation | | | | | [place], | (Primary Dx); | | | | | [place] [address] | Presence of | | | | | [phone] | permanent cardiac | | | | [...] | | | | | artery of [place] | | | | | | heart [...] DALJIT | | | | | | ([id number]) on 06/29/2018 | | | | | [...] Coronary artery disease involving [place] coronary artery of [place] heart without | | angina pectoris | + + | Hypertension, unspecified type | + + documented in this encounter"
--- OUTSIDE RECORDS SUMMARY | ~2019-11-01 | XMS | Encounter Summary ---
Demographics + + + | Address | [address] | | | [place] [address] | + + + | Home Phone [...] + +------+ + | Care Linseed Oil Temperer Name | Role | Phone | + +------+ + PCP | Unavailable | + +------+ + Encounter Details +--------+ + + + + | Date | Type | Department | Care Team | Description | +--------+ + + + + | 09/29/ | Hospital | [facility] | | | | 1995 | Encounter | MED CTR EMERGENCY | | | | | | [place] [address] | | | | | | [place] | | | | | | [address] | | | | | | [phone] | | | +--------+ + + + [...] | | | | | | [place] [address] | | | | | | [phone] | | | | | | | | +--------+ + + + + | 11/20/ | Implant | Cardiology | Daljit Singletary, | Remote Device | | 2018 | Monitor | | 401 [facility] | Interrogation | | | | | [place], | (Primary Dx); | | | | | [place] [address] | Presence of | | | | | [phone] | permanent cardiac | | | | [...]
--- OUTSIDE RECORDS SUMMARY | ~2019-11-01 | XMS | Encounter Summary ---
Demographics + + + | Address | [address] | | | [place] [address] | + + + | Home Phone [...] Providers + +------+ + | Care Chief Librarian Branch Name | Role | Phone | + [...] [address] | | | | | [place], | [place], | | | | | [place] [address] | [place] [address] | | | | | [phone] | [phone] | | | | | | | [...] | | | | | | [place] [address] | | | | | | [phone] | | | | | | | | +--------+ + + + + | 11/20/ | Implant | Cardiology | Daljit Singletary, | Remote Device | | 2018 | Monitor | | [address] | Interrogation | | | | | [place], | (Primary Dx); | | | | | [place] [address] | Presence of | | | | | [phone] | permanent cardiac | | | | [...]
--- OUTSIDE RECORDS SUMMARY | ~2019-11-01 | XMS | Encounter Summary ---
Demographics + + + | Address | [address] | | | [place] [address] | + + + | Home Phone [...] Team Providers + +------+ + | Care Manual Tester Name | Role | Phone | [...] + + | 12/23/ | Telephone | [facility] | Emmanuel Daniel MD | Other (Needs to know | | 2017 | | GASTROENTEROLOGY | [address], [place] | what he can eat | | | | [address] [place] | [address] [place], [place] | today) | | | | [address] [place], [place] | [address] | | | | | [address] | | | | | | [phone] | | | +--------+ + + + [...] | | | | | | [place] [address] | | | | | | [phone] | | | | | | | | +--------+ + + + + | 11/20/ | Implant | Cardiology | Daljit Singletary, | Remote Device | | 2018 | Monitor | | MD [address] | Interrogation | | | | | [place], | (Primary Dx); | | | | | [place] [address] | Presence of | | | | | [phone] | permanent cardiac | | | | [...]
--- OUTSIDE RECORDS SUMMARY | ~2019-11-01 | XMS | Encounter Summary ---
Demographics + + + | Address | [address] | | | [place] [address] | + + + | Home Phone [...] Providers + +------+ + | Care Physician Executive Name | Role | Phone | [...] + + | 07/12/ | Office | [facility] | Michael Amanda, | Preventative health | | 2013 | Visit | [facility] [place] | DO [address] | care (Primary Dx); | | | | [address] | [place], [place] | Prostate cancer | | | | [place], [place] | [address] | screening; | | | | [address] | | Hypercholesterolemia | | | | [phone] | | ; Hypertension; | | | [...] clear cause was found. He has seen wool mixer and has a rechec k plan. Possible [...] W | | | | | | [place], | | | | | | [place] [address] | | | | | | [phone] | | | | | | | | +--------+ + + + + | 11/20/ | Implant | Cardiology | Daljit Singletary, | Remote Device | | 2019 | Monitor | | MD [address] [place] | Interrogation | | | | | [place], | (Primary Dx); | | | | | [place] [address] | Presence of | | | | | [phone] | permanent cardiac | | | | [...] - Primary Routine general medical examination at [facility] | | care facility | [...]
--- OUTSIDE RECORDS SUMMARY | ~2019-11-01 | XMS | Encounter Summary ---
Demographics + + + | Address | [address] | | | [place] [address] | + + + | Home Phone [...] Team Providers + +------+ + | Care Underground Conduit Installer Name | Role | Phone | + +------+ + | Kirk French MD | PCP | | + +------+ + Encounter Details +--------+ + + + + | Date | Type | Department | Care Team | Description | +--------+ + + + + | 06/19/ | Orders Only | [facility] | Fabrice Hylton, | Abnormal weight | | 2019 | | SYSTEM GENERIC OP | MD [address] | loss; Anxiety | | | | CONVERSION [address] | [address] [place], [place] | disorder; Chronic | | | | [address] [place], [place] | [address] | pain syndrome; | | | | [address] | | Obesity; Neuralgia | | | | [phone] | | and neuritis, | | | [...] W | | | | | | [place], | | | | | | [place] [address] | | | | | | [phone] | | | | | | | | +--------+ + + + + | 11/20/ | Implant | Cardiology | Daljit Singletary, | Remote Device | | 2019 | Monitor | | [address] [place] | Interrogation | | | | | [place], | (Primary Dx); | | | | | [place] [address] | Presence of | | | | | [phone] | permanent cardiac | | | | [...]
--- OUTSIDE RECORDS SUMMARY | ~2019-11-01 | XMS | Encounter Summary ---
Demographics + + + | Address | [address] | | | [place] [address] | + + + | Home Phone [...] Team Providers + +------+ + | Care Comptometer Operator Name | Role | Phone | + +------+ + | Kirk French MD | PCP | | + +------+ + Encounter Details +--------+ + + + + | Date | Type | Department | Care Team | Description | +--------+ + + + + | 01/25/ | Emergency | [facility] | Donald Callahan, | Strain of lumbar | | 2016 | | [facility]ICAL [facility]ENTER | Russ, DO [address] | paraspinal muscle, | | | | EMERGENCY CENTER | [address] | initial encounter; | | | | [address] | [place], [place] | Left hip pain | | | | [place], [place] | [address] | | | | | [address] | | | | | | [phone] | | | +--------+ + + + [...] + + +---------+ + + | [place]-3 Fatty | CAPS, one capsule by | [...] | | | | | | [place] [address] | | | | | | [phone] | | | | | | | | +--------+ + + + + | 11/20/ | Implant | Cardiology | Daljit Singletary, | Remote Device | | 2019 | Monitor | | [place] [address] [facility] | Interrogation | | | | | [place], | (Primary Dx); | | | | | [place] [address] | Presence of | | | | | [phone] | permanent cardiac | | | | [...] Conversion - 07/06/2019 12:12 AM PDT PINA [id number] years MaleXR | | LUMBAR SPINE LIMITED [...]
--- OUTSIDE RECORDS SUMMARY | ~2019-11-01 | XMS | Encounter Summary ---
Demographics + + + | Address | [address] | | | [place] [address] | + + + | Home Phone [...] Providers + +------+ + | Care Special Officer Name | Role | Phone | + +------+ + PCP | Unavailable | + +------+ + Encounter Details +--------+ + + + + | Date | Type | Department | Care Team | Description | +--------+ + + + + | 02/21/ | [facility] | [facility] | Geri Angel, | | | 2011 | Encounter | MED CTR XRAY [address] | VP ANALYTICS [address] | | | | | [place] | St [place] | | | | | [place] [address] | [address] | | | | | [phone] | | | +--------+ + + + [...] | | | | | | [place] [address] | | | | | | [phone] | | | | | | | | +--------+ + + + + | 11/20/ | Implant | Cardiology | Daljit Singletary, | Remote Device | | 2019 | Monitor | | MD [address] | Interrogation | | | | | [place], | (Primary Dx); | | | | | [place] [address] | Presence of | | | | | [phone] | permanent cardiac | | | | [...]
--- OUTSIDE RECORDS SUMMARY | ~2019-11-01 | XMS | Encounter Summary ---
Demographics + + + | Address | [address] | | | [place] [address] | + + + | Home Phone [...] Providers + +------+ + | Care Salesperson New Cars Name | Role | Phone | + [...] | | CARDIOLOGY [address] | [address] | | | | | [place], | [place], | | | | | [place] [address] | [place] [address] | | | | | [phone] | [phone] | | | | | | | [...] W | | | | | | [place], | | | | | | [place] [address] | | | | | | [phone] | | | | | | | | +--------+ + + + + | 11/20/ | Implant | Cardiology | Daljit Singletary, | Remote Device | | 2018 | Monitor | | [facility] | Interrogation | | | | | [place], | (Primary Dx); | | | | | [place] [address] | Presence of | | | | | [phone] | permanent cardiac | | | | [...]
--- OUTSIDE RECORDS SUMMARY | ~2019-11-01 | XMS | Encounter Summary ---
Demographics + + + | Address | [address] | | | [place] [address] | + + + | Home Phone [...] Providers + +------+ + | Care Repairer Art Objects Name | Role | Phone | + [...] [address] | | | | | | [place], [place] | (Fax) | | | | | [address] | | | | | | [phone] | | | +--------+ + + + [...] | | | | | | [place] [address] | | | | | | [phone] | | | | | | | | +--------+ + + + + | 11/20/ | Implant | Cardiology | Dalijt Singletary, | Remote Device | | 2018 | Monitor | | 401 [facility] | Interrogation | | | | | [place], | (Primary Dx); | | | | | [place] [address] | Presence of | | | | | [phone] | permanent cardiac | | | | [...]
--- OUTSIDE RECORDS SUMMARY | ~2019-11-01 | XMS | Encounter Summary ---
Demographics + + + | Address | [address] | | | [place] [address] | + + + | Home Phone [...] Providers + +------+ + | Care Metal Trimmer Name | Role | Phone | [...] | | | | of feces, | [place], [place] | [address] | | | | | unspecified | [address] [place] | [place], [place] | | | | | fecal | [place], [place] | [address] | | | | | incontinence | [address] | Phone: | | | | | type | Phone: | [phone] | | | | | Diarrhea, | [phone] | Fax: | | | | | unspecified | Fax: | [phone] | | | | | type | [phone] | | +--------+ + + + + [...] 2018 | | GASTROENTEROLOGY | [address] [place], [place] | | | | | [address] [place] | [address] [place], [place] | | | | | [address] [place], [place] | [address] | | | | | [address] | | | | | | [phone] | | | +--------+ + + + [...] | | | | | | [place] [address] | | | | | | [phone] | | | | | | | | +--------+ + + + + | 11/20/ | Implant | Cardiology | Daljit Singletary, | Remote Device | | 2018 | Monitor | | [address] | Interrogation | | | | | [place], | (Primary Dx); | | | | | [place] [address] | Presence of | | | | | [phone] | permanent cardiac | | | | [...]
--- OUTSIDE RECORDS SUMMARY | ~2019-11-01 | XMS | Encounter Summary ---
Demographics + + + | Address | [address] | | | [place] [address] | + + + | Home Phone [...] Providers + +------+ + | Care Wire Straightener Name | Role | Phone | [...] | Visit | CARDIOLOGY [address] | ICT BUSINESS ANALYST [address] [place] | Dx) | | | | [place], | [place], [place] | | | | | [place] [address] | [address] | | | | | [phone] | | | +--------+---------+ + + + [...] Sanchez Date: December 21, 2012 : 1960 Real Estate Transaction Coordinator: PARISA Velazquez Device Hides And Skins Colorer: Medtronic Sense (mV) Impedance (?) Capture (V) Capture (ms) A Lead 4-5.6 423 1.5 0.09 RV Lead >31.36 539 2.0 0.09 LV Lead Battery Impedance (?): 301 Battery Voltage (V): 2.8 TX Interval (ms): 140 AR Interval (ms): 210 VA Conduction: Mode Switch Events: N/A % of time: -SHIPPER RECEIVER: 0.6 AP-SHIPPER RECEIVER: 1.3 -VS: 23.9 AP-VS: 74.2 SHIPPER RECEIVER: Magnetic Rate: 85 LINDA: 65 LEAH: Current [...] | | | | | | [place] [address] | | | | | | [phone] | | | | | | | | +--------+ + + + + | 11/20/ | Implant | Cardiology | Gemini Shaistakenneth, | Remote Device | | 2019 | Monitor | | MD [address] [facility] | Interrogation | | | | | [place], | (Primary Dx); | | | | | [place] [address] | Presence of | | | | | [phone] | permanent cardiac | | | | [...]
--- OUTSIDE RECORDS SUMMARY | ~2019-11-01 | XMS | Encounter Summary ---
Demographics + + + | Address | [address] | | | [place] [address] | + + + | Home Phone [...] Providers + +------+ + | Care Vp Customer Development Name | Role | Phone | [...] + | 06/23/ | Office | [facility] | Silvia, | Ascending thoracic | | 2016 | Visit | CARDIOLOGY [address] | PARISA Vernon [address] | aortic aneurysm | | | | [place], | [place], | ([facility]) (Primary Dx); | | | | [place] [address] | [place] [address] | Coronary artery | | | | [phone] | [phone] | disease involving | | | | | | samish coronary | | | | | | artery of samish | | | | | | heart [...] in office in 6 months. hgabby, Janeen, STATISTICAL MACHINE MECHANIC - 06/23/2016 12:45 PM PDT PATIENT NAME: [...] by mouth every evening 90 tablet 3 [facility] Natural Products (OSTEO BI-FLEX/5-LOXIN ADVANCED PO) Take [...] 3rd dose, call 911 100 tablet 3 [place]-3 Fatty Acids (SALMON OIL-1000 PO) CAPS, one [...] ASSESSMENT: 1. Non-critical Coronary artery disease involving samish coronary artery of samish heart [facility] angina pectoris: A. Normal exercise [...] pain. He is in class I-II of [facility] [employer] n functional class. There are [...] this chart may have been created with [employer] voice recognition software. Occasi onal wrong-word or [...] | | | | | | [place] [address] | | | | | | [phone] | | | | | | | | +--------+ + + + + | 11/20/ | Implant | Cardiology | Daljit Singletary, | Remote Device | | 2018 | Monitor | | [facility] | Interrogation | | | | | [place], | (Primary Dx); | | | | | [place] [address] | Presence of | | | | | [phone] | permanent cardiac | | | | | | pacemaker; | | | | | | Sinoatrial node | | | | | | dysfunction ([facility]) | | | | | | [...] the | | | | PDT | samish coronary | results section. | | | | | artery of samish | | | | | | heart [...] MD | | | | | | ([id number]) on 06/23/2016 | | | | | [...] samish heart without | | angina pectoris | [...]
--- OUTSIDE RECORDS SUMMARY | ~2019-11-01 | XMS | Encounter Summary ---
Demographics + + + | Address | [address] | | | [place] [address] | + + + | Home Phone [...] Providers + +------+ + | Care Service Parts Coordinator Name | Role | Phone | [...] [place] | | | | | | [address] | | | | | | [phone] | | | | | | | [...] | | | | | | [place] [address] | | | | | | [phone] | | | | | | | | +--------+ + + + + | 11/20/ | Implant | Cardiology | Daljit Singletary, | Remote Device | | 2018 | Monitor | | [facility] | Interrogation | | | | | [place], | (Primary Dx); | | | | | [place] [address] | Presence of | | | | | [phone] | permanent cardiac | | | | [...]
--- OUTSIDE RECORDS SUMMARY | ~2019-11-01 | XMS | Encounter Summary ---
Demographics + + + | Address | [address] | | | [place] [address] | + + + | Home Phone [...] Providers + +------+ + | Care Search Strategist Name | Role | Phone | [...] + | 11/05/ | Telephone | [facility] | Daljit Singletary, | Chest Pain | | 2016 | | CARDIOLOGY [address] | MD [address] [place] | | | | | [place], | [place], | | | | | [place] [address] | [place] [address] | | | | | [phone] | [phone] | | | | | | | [...] | | | | | [place], | | | | | | [place] [address] | | | | | | [phone] | | | | | | | | +--------+ + + + + | 11/20/ | Implant | Cardiology | Daljit Singletary, | Remote Device | | 2018 | Monitor | | MD [address] [place] | Interrogation | | | | | [place], | (Primary Dx); | | | | | [place] [address] | Presence of | | | | | [phone] | permanent cardiac | | | | [...]
--- OUTSIDE RECORDS SUMMARY | ~2019-11-01 | XMS | Encounter Summary ---
Demographics + + + | Address | [address] | | | [place] [address] | + + + | Home Phone [...] Providers + +------+ + | Care Tire Building Supervisor Name | Role | Phone [...] [address] | | | | | [place], | [place], | | | | | [place] [address] | [place] [address] | | | | | [phone] | [phone] | | | | | | | [...] W | | | | | | [place], | | | | | | [place] [address] | | | | | | [phone] | | | | | | | | +--------+ + + + + | 11/20/ | Implant | Cardiology | Daljit Singletary, | Remote Device | | 2018 | Monitor | | [address] [place] | Interrogation | | | | | [place], | (Primary Dx); | | | | | [place] [address] | Presence of | | | | | [phone] | permanent cardiac | | | | [...]
--- OUTSIDE RECORDS SUMMARY | ~2019-11-01 | XMS | Encounter Summary ---
Demographics + + + | Address | [address] | | | [place] [address] | + + + | Home Phone [...] Providers + +------+ + | Care Market Development Analyst Name | Role | Phone | [...] | disease involving | | | | [place], | [place], | [place] coronary | | | | [place] [address] | [place] [address] | artery of passamaquoddy | | | | [phone] | [phone] | heart without angina | | | [...] | | | | | | [place] [address] | | | | | | [phone] | | | | | | | | +--------+ + + + + | 11/20/ | Implant | Cardiology | Daljit Singletary, | Remote Device | | 2018 | Monitor | | MD Sim [facility] | Interrogation | | | | | [place], | (Primary Dx); | | | | | [place] [address] | Presence of | | | | | [phone] | permanent cardiac | | | | [...] MD | | | | | | ([id number]) on 06/23/2016 | | | | | [...] + + | Coronary artery disease involving [place] coronary artery of passamaquoddy heart without | | angina pectoris - Primary | + + | Essential hypertension with goal blood pressure less than 130/80 | + + documented in this encounter"
--- OUTSIDE RECORDS SUMMARY | ~2019-11-01 | XMS | Encounter Summary ---
Demographics + + + | Address | [address] | | | [place] [address] | + + + | Home Phone [...] Providers + +------+ + | Care Aerial Tram Operator Name | Role | Phone | [...] + + | 06/04/ | Hospital | [facility] | Sariah, | Cervical spinal | | 2016 | Encounter | MED CTR XRAY [address] | Marietta Mason, BODY ART TECHNICIAN [address] | stenosis | | | | [place] | [id number] | | | | | [place] [address] | [place] [address] | | | | | [phone] | [phone] | | | | | | | [...] + + +---------+ + + | [place]-3 Fatty | CAPS, one capsule by | [...] | | | | | | [place] [address] | | | | | | [phone] | | | | | | | | +--------+ + + + + | 11/20/ | Implant | Cardiology | Daljit Singletary, | Remote Device | | 2019 | Monitor | | MD 401 [facility] | Interrogation | | | | | [place], | (Primary Dx); | | | | | [place] [address] | Presence of | | | | | [phone] | permanent cardiac | | | | [...]
--- OUTSIDE RECORDS SUMMARY | ~2019-11-01 | XMS | Encounter Summary ---
Demographics + + + | Address | [address] | | | [place] [address] | + + + | Home Phone [...] + + | 01/21/ | Emergency | [facility] | Kirill Dominique | Unspecified Chest | | 2009 | | [facility] CENTER | MD Jonas [address] | Pain | | | | EMERGENCY CENTER | [address] [place] | | | | | [address] | [address] | | | | | [place] | [phone] | | | | | [address] | | | | | | [phone] | | | +--------+ + + + [...] W | | | | | | [place], | | | | | | [place] [address] | | | | | | [phone] | | | | | | | | +--------+ + + + + | 11/20/ | Implant | Cardiology | Daljit Singletary, | Remote Device | | 2019 | Monitor | | [address] [place] | Interrogation | | | | | [place], | (Primary Dx); | | | | | [place] [address] | Presence of | | | | | [phone] | permanent cardiac | | | | [...]
--- OUTSIDE RECORDS SUMMARY | ~2019-11-01 | XMS | Encounter Summary ---
Demographics + + + | Address | [address] | | | [place] [address] | + + + | Home Phone [...] Providers + +------+ + | Care Building Architectural Designer Name | Role | Phone | [...] + + | 12/14/ | Telephone | [facility] | Emmanuel Daniel MD | Follow-up, Office | | 2019 | | GASTROENTEROLOGY | [address], [place] | Visit (wants to | | | | [address] [place] | [address] [place] | cancel his office | | | | [address] [place] | [address] | appointment today) | | | | [address] | | | | | | [phone] | | | +--------+ + + + [...] | | | | | | [place] [address] | | | | | | [phone] | | | | | | | | +--------+ + + + + | 11/20/ | Implant | Cardiology | Daljit Singletary, | Remote Device | | 2019 | Monitor | | 401 [facility] | Interrogation | | | | | [place], | (Primary Dx); | | | | | [place] [address] | Presence of | | | | | [phone] | permanent cardiac | | | | [...]
--- OUTSIDE RECORDS SUMMARY | ~2019-11-01 | XMS | Encounter Summary ---
Demographics + + + | Address | [address] | | | [place] [address] | + + + | Home Phone [...] Providers + +------+ + | Care Server Security Administrator Name | Role | Phone | [...] | | | | CENTER [address] | [place], [place] | insufficiency | | | | [place], [place] | [address] | | | | | [address] | | | | | | [phone] | | | +--------+ + + + [...] + + + +---------+ + + | [place]-3 Fatty | CAPS, one capsule by [...] | | | | | | | #[id number], exp 07/2016 | | | | | [...] | | | | | | [place] [address] | | | | | | [phone] | | | | | | | | +--------+ + + + + | 11/20/ | Implant | Cardiology | Daljit Singletary, | Remote Device | | 2018 | Monitor | | MD [address] | Interrogation | | | | | [address] [place], | (Primary Dx); | | | | | [place] [address] | Presence of | | | | | [phone] | permanent cardiac | | | | [...]
--- OUTSIDE RECORDS SUMMARY | ~2019-11-01 | XMS | Encounter Summary ---
Demographics + + + | Address | [address] | | | [place] [address] | + + + | Home Phone [...] Providers + +------+ + | Care Cap Parts Cutter Name | Role | Phone [...] [address] | | | | | [place], | [place], | | | | | [place] [address] | [place] [address] | | | | | [phone] | [phone] | | | | | | | [...] | | | | | | [place] [address] | | | | | | [phone] | | | | | | | | +--------+ + + + + | 11/20/ | Implant | Cardiology | Daljit Singletary, | Remote Device | | 2018 | Monitor | | MD [address] [place] | Interrogation | | | | | [place] [place], | (Primary Dx); | | | | | [place] [address] | Presence of | | | | | [phone] | permanent cardiac | | | | [...]
--- OUTSIDE RECORDS SUMMARY | ~2019-11-01 | XMS | Encounter Summary ---
Demographics + + + | Address | [address] [place] [address] | | | [place] [address] | + + + | Home Phone [...] [place] | | | | | [address] | | + + + + + Care Team Providers + +------+ + | Care Manager Primary Name | Role | Phone | + [...] | | [facility] [place] | [facility] [place] | ED) | | | | Mailcode: Center | [address] | | | | | for Health and | [phone] | | | | | [facility] | | | | | | [place], [place] | | | | | | [address] | | | | | | [phone] | | | +--------+ + + + [...]
--- OUTSIDE RECORDS SUMMARY | ~2019-11-01 | XMS | Encounter Summary ---
Demographics + + + | Address | [address] | | | [place] [address] | + + + | Home Phone [...] Providers + +------+ + | Care Tax Processor Name | Role | Phone | + +------+ + | Darion Holden DO | PCP | | + +------+ + Encounter Details +--------+ + + + + | Date | Type | Department | Care Team | Description | +--------+ + + + + | 08/05/ | Hospital | [facility] | Emmanuel Daniel MD | | | 2009 | Encounter | MED CTR XRAY [address] | [address] | | | | | [place] | [address] [place], [place] | | | | | [place] [address] | [address] | | | | | [phone] | | | +--------+ + + + [...] | | | | | | [place] [address] | | | | | | [phone] | | | | | | | | +--------+ + + + + | 11/20/ | Implant | Cardiology | Daljit Singletary, | Remote Device | | 2018 | Monitor | | [address] | Interrogation | | | | | [place], | (Primary Dx); | | | | | [place] [address] | Presence of | | | | | [phone] | permanent cardiac | | | | [...]
--- OUTSIDE RECORDS SUMMARY | ~2019-11-01 | XMS | Encounter Summary ---
Demographics + + + | Address | [address] | | | [place] [address] | + + + | Home Phone [...] Team Providers + +------+ + | Care Bow Rehairer Name | Role | Phone | + [...] + + | 06/26/ | Office | [facility] | Geri Angel, | Coronary artery | | 2015 | Visit | CARDIOLOGY [address] | FRESH FOODS CAKE DECORATOR [address] [place] | disease involving | | | | [place], | [facility] [place] | [place] coronary | | | | [place] [address] | [address] | artery without | | | | [phone] | | angina pectoris | | | [...] not occur with exertion. He went to [facility] at the end of for his [...] it. He is planning to travel to [facility] in the ve ry near future for up to a month due to his visnlm-ir-hys having a significant stroke there MEDICAL, SURGICAL, [...] care Coronary artery disease involving [place] coronary artery without angina pectoris Cannabis abuse, [...] by mouth Daily. 30 tabl et 6 [facility] Natural Products (OSTEO BI-FLEX/5-LOXIN [...] 3rd dose, call 911 25 tablet 11 [place]-3 Fatty Acids (SALMON OIL-1000 PO) CAPS, one [...] Daily. 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 Leads: Right atrium and right ventricle (dual [...] to go back in 3 days to [facility] for an attempt of ablation under general [...] this chart may have been created with [employer] voice recognition software. Occasi onal wrong-word or [...] | | | | | | [place], | | | | | | [place] [address] | | | | | | [phone] | | | | | | | | +--------+ + + + + | 11/20/ | Implant | Cardiology | Daljit Singletary, | Remote Device | | 2019 | Monitor | | [facility] | Interrogation | | | | | 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 Leads: Right atrium and right | | [...] | Coronary artery disease involving [place] coronary artery without angina pectoris - | | Primary | + + | SINUS BRADYCARDIA Sinoatrial node dysfunction | + + | Essential hypertension Unspecified essential hypertension | + + | Hyperlipidemia Other and unspecified hyperlipidemia | + + | Symptomatic PVCs Other premature beats | + + documented in this encounter
--- OUTSIDE RECORDS SUMMARY | ~2019-11-01 | XMS | Encounter Summary ---
Demographics + + + | Address | [address] | | | [place] [address] | + + + | Home Phone [...] Team Providers + +------+ + | Care Tennis Court Attendant Name | Role | Phone | [...] [place] | | | | | [place], [place] | [address] | | | | | [address] | [place] [address] | | | | | [phone] | [phone] | | | | | | | [...] W | | | | | | [place], | | | | | | [place] [address] | | | | | | [phone] | | | | | | | | +--------+ + + + + | 11/20/ | Implant | Cardiology | Daljit Singletary, | Remote Device | | 2018 | Monitor | | [address] [place] | Interrogation | | | | | [place], | (Primary Dx); | | | | | [place] [address] | Presence of | | | | | [phone] | permanent cardiac | | | | [...]
--- OUTSIDE RECORDS SUMMARY | ~2019-11-01 | XMS | Encounter Summary ---
Demographics + + + | Address | [address] | | | [place] [address] | + + + | Home Phone [...] Providers + +------+ + | Care Hourly Shift Manager Name | Role | Phone | [...] | RN | | | | | [place], | | | | | | [place] [address] | | | | | | [phone] | | | +--------+ + + + [...] | | | | | | [place] [address] | | | | | | [phone] | | | | | | | | +--------+ + + + + | 11/20/ | Implant | Cardiology | Daljit Singletary, | Remote Device | | 2019 | Monitor | | [address] [facility] [place] | Interrogation | | | | | [address] [place], | (Primary Dx); | | | | | [place] [address] | Presence of | | | | | [phone] | permanent cardiac | | | | [...]
--- OUTSIDE RECORDS SUMMARY | ~2019-11-01 | XMS | Encounter Summary ---
Demographics + + + | Address | [address] [place] [address] | | | [place] [address] | + + + | Home Phone [...] [place] | | | | | [address] | | + + + + + Care Team Providers + +------+ + | Care Director Global Strategic Publisher Sales Name | Role | Phone | [...] | | | [address] | [place], [place] | | | | | Mailcode: [place] | [address] | | | | | for Health and | [phone] | | | | | [facility] | | | | | | [place], [place] | | | | | | [address] | | | | | | [phone] | | | +--------+ + + + [...]
--- OUTSIDE RECORDS SUMMARY | ~2019-11-01 | XMS | Encounter Summary ---
Demographics + + + | Address | [address] | | | [place] [address] | + + + | Home Phone [...] Providers + +------+ + | Care Secretary To Board Of Commissioners Name | Role | Phone | + [...] CV INTRA OP | MD [address] | pectoris (HCC) | | | | [address] | [address] [place], | | | | | [place] | [place] [id number] | | | | | [address] | [phone] | | | | | [phone] | | | +--------+ + + + [...] as a collagen plugis used on the asbury triny site to close the site, you [...] by your healthcare provider Date Last Reviewed: 09/22/201619996838-1401 [employer]. [address] [place] [address]. All righ ts reserved. This information is [...] + + + +---------+ + + | Page-3 Fatty | CAPS, one capsule by | [...] W | | | | | | [place], | | | | | | [place] [address] | | | | | | [phone] | | | | | | | | +--------+ + + + + | 11/20/ | Implant | Cardiology | Daljit Singletary, | Remote Device | | 2018 | Monitor | | [facility] | Interrogation | | | | | [place], | (Primary Dx); | | | | | [place] [id number] | Presence of | | | | | [phone] | permanent cardiac | | | | [...] (1960) MEDICAL RECORD NUMBER: | | | [id number] OF PROCEDURE: 01/25/2019 SAP BASIS ADMINISTRATOR: Daljit | | | MD Gemini PROCEDURES [...] Sanchez, (1960) | | OF PROCEDURE: 01/25/2019PRIMARY TRUCK DISPATCHER: Daljit Singletary MD PROCEDURES | | PERFORMED:Coronary [...] | Aggressive medical management. | | at 9:33[facility] PROVIDER:Kirk French MDFor additional detail [...]
--- OUTSIDE RECORDS SUMMARY | ~2019-11-01 | XMS | Encounter Summary ---
Demographics + + + | Address | [address] | | | [place] [address] | + + + | Home Phone [...] Team Providers + +------+ + | Care Top Precipitator Operator Name | Role | Phone | [...] | on | GASTROENTEROLOGY | [address], [place] | | | | | [address] [place] | [address] [place], [place] | | | | | [address] [place], [place] | [address] | | | | | [address] | | | | | | [phone] | | | +--------+ + + + [...] | | | | | | [place] [address] | | | | | | [phone] | | | | | | | | +--------+ + + + + | 11/20/ | Implant | Cardiology | Daljit Singletary, | Remote Device | 2018 | Monitor | | [facility] | Interrogation | | | | | [place], | (Primary Dx); | | | | | [place] [address] | Presence of | | | | | [phone] | permanent cardiac | | | | [...]
--- OUTSIDE RECORDS SUMMARY | ~2019-11-01 | XMS | Encounter Summary ---
Demographics + + + | Address | [address] | | | [place] [address] | + + + | Home Phone [...] Team Providers + +------+ + | Care Designer Writer Name | Role | Phone | + +------+ + PCP | Unavailable | + +------+ + Encounter Details +--------+ + + + + | Date | Type | Department | Care Team | Description | +--------+ + + + + | 12/01/ | Hospital | [facility] | | | | 1997 | Encounter | MED CTR EMERGENCY | | | | | | CENTER [address] | | | | | | [place] | | | | | | [address] | | | | | | [phone] | | | +--------+ + + + [...] | | | | | | [place], | | | | | | [place] [address] | | | | | | [phone] | | | | | | | | +--------+ + + + + | 11/20/ | Implant | Cardiology | Daljit Singletary, | Remote Device | | 2018 | Monitor | | [facility] | Interrogation | | | | | [address], | (Primary Dx); | | | | | [place] [address] | Presence of | | | | | [phone] | permanent cardiac | | | | [...]
--- OUTSIDE RECORDS SUMMARY | ~2019-11-01 | XMS | Encounter Summary ---
Demographics + + + | Address | [address] | | | [place] [address] | + + + | Home Phone [...] Providers + +------+ + | Care Faculty Physician Name | Role | Phone | [...] | | GASTROENTEROLOGY | [address] [place], [place] | | | | | [address] [place] | [address] [place], [place] | | | | | [address] [place], [place] | [address] | | | | | [address] | | | | | | [phone] | | | +--------+ + + + [...] | | | | | | [place], | | | | | | [place] [address] | | | | | | [phone] | | | | | | | | +--------+ + + + + | 11/20/ | Implant | Cardiology | Daljit Singletary, | Remote Device | | 2019 | Monitor | | [address] [place] | Interrogation | | | | | [place], | (Primary Dx); | | | | | [place] [address] | Presence of | | | | | [phone] | permanent cardiac | | | | [...]
--- OUTSIDE RECORDS SUMMARY | ~2019-11-01 | XMS | Encounter Summary ---
Demographics + + + | Address | [address] | | | [place] [address] | + + + | Home Phone [...] Providers + +------+ + | Care Production Artist Name | Role | Phone | + +------+ + | Kirk French MD | PCP | | + +------+ + Encounter Details +--------+ + + + + | Date | Type | Department | Care Team | Description | +--------+ + + + + | 10/25/ | Hospital | [facility] | Kirk French | Chronic pain | | 2017 | Encounter | MED CTR ULTRASOUND | MD Brea Eva LORA | disorder; Stomach | | | | [address] [place] | [address] | ache; Obesity, | | | | [place], [place] | [place] [address] | unspecified | | | | [address] | [phone] | classification, | | | | [phone] | | unspecified obesity | | | [...] + + + +---------+ + + | Bartley-3 Fatty | CAPS, one capsule by | [...] W | | | | | | [place], | | | | | | [place] [address] | | | | | | [phone] | | | | | | | | +--------+ + + + + | 11/20/ | Implant | Cardiology | Daljit Singletary, | Remote Device | | 2018 | Monitor | | [address] [facility] | Interrogation | | | | | [place], | (Primary Dx); | | | | | [place] [address] | Presence of | | | | | [phone] | permanent cardiac | | | | [...]
--- OUTSIDE RECORDS SUMMARY | ~2019-11-01 | XMS | Encounter Summary ---
Demographics + + + | Address | [address] | | | [place] [address] | + + + | Home Phone [...] Team Providers + +------+ + | Care Creosoting Engineer Name | Role | Phone | [...] | 05/08/ | Telephone | [facility] | Emmanuel Daniel MD | Other | | 2019 | | GASTROENTEROLOGY | [address], [place] | | | | | [address] | [address] [place], [place] | | | | | [address] [place], [place] | [address] | | | | | [address] | | | | | | [phone] | | | +--------+ + + + [...] | | | | | | [place], | | | | | | [place] [address] | | | | | | [phone] | | | | | | | | +--------+ + + + + | 11/20/ | Implant | Cardiology | Daljit Singletary, | Remote Device | | 2018 | Monitor | | MD [address] | Interrogation | | | | | [place], | (Primary Dx); | | | | | [place] [address] | Presence of | | | | | [phone] | permanent cardiac | | | | [...]
--- OUTSIDE RECORDS SUMMARY | ~2019-11-01 | XMS | Encounter Summary ---
Demographics + + + | Address | [address] [place] [address] | | | [place] [address] | + + + | Home Phone [...] [place] | | | | | [address] | | + + + + + Care Team Providers + +------+ + | Care Experience Designer Name | Role | Phone | [...] | Center at [facility] [address] | MD [address] | | | | | [address] | [facility] [place] | | | | | Mailcode: Center | [address] | | | | | for Health and | [phone] | | | | | [facility] 2 | | | | | | [place], [place] | | | | | | [address] | | | | | | [phone] | | | +--------+ + + + [...]
--- OUTSIDE RECORDS SUMMARY | ~2019-11-01 | XMS | Encounter Summary ---
Demographics + + + | Address | [address] | | | [place] [address] | + + + | Home Phone [...] Team Providers + +------+ + | Care Legal Support Manager Name | Role | Phone | [...] Provider Unknown | | | | | [place], [place] | [phone] | | | | | [address] | | | | | | [phone] | | | +--------+ + + + [...] + + +---------+ + + | [place]-3 Fatty | CAPS, one capsule by [...] W | | | | | | [place], | | | | | | [place] [address] | | | | | | [phone] | | | | | | | | +--------+ + + + + | 11/20/ | Implant | Cardiology | Daljit Singletary, | Remote Device | | 2018 | Monitor | | MD Sim [place] | Interrogation | | | | | [place], | (Primary Dx); | | | | | [place] [address] | Presence of | | | | | [phone] | permanent cardiac | | | | [...]
--- OUTSIDE RECORDS SUMMARY | ~2019-11-01 | XMS | Encounter Summary ---
Demographics + + + | Address | [address] | | | [place] [address] | + + + | Home Phone [...] Providers + +------+ + | Care Sheep Farmer Name | Role | Phone | + +------+ + | Kirk French MD | PCP | | + +------+ + Encounter Details +--------+ + + + + | Date | Type | Department | Care Team | Description | +--------+ + + + + | 12/24/ | [facility] | [facility] | Emmanuel Daniel MD | Pain of upper | | 2018 | Encounter | MED CTR MP INTRA OP | [address], [place] | abdomen (Primary | | | | [address] | [address] [place], [place] | Dx); Functional | | | | [place], [place] | [address] | diarrhea; Weight | | | | [address] | | loss | | | | [phone] | | | +--------+ + + + [...] + + + +---------+ + + | [place]-3 Fatty | CAPS, one capsule by | [...] | | | | | | [place] [address] | | | | | | [phone] | | | | | | | | +--------+ + + + + | 11/20/ | Implant | Cardiology | Daljit Singletary, | Remote Device | | 2019 | Monitor | | [address] [facility] | Interrogation | | | | | [address] [place], | (Primary Dx); | | | | | [place] [address] | Presence of | | | | | [phone] | permanent cardiac | | | | [...] + | Performed at: 01 - [facility] [place] [address], | REFERENCE LAB | | [place], [place] [id number] Junior Media Buyer: William Andrew MD, Phone: | [place] | | [phone] | | + + + + + + + + | Performing | Address | City/State/Zipcode | Phone Number | | Organization | | | | + + + + + | REFERENCE LAB | [address] | [place], [place] [address] | [phone] | | [facility] - [place] | Drive [...] + | [facility] | [address] | [place] | [phone] | | [facility] | | [address] | | | - LABORATORY | | [...] [address] | [place] | [phone] | | [facility] | | [address] | | | - LABORATORY | | [...] + | [address] | [address] | [place] | [phone] | | [facility] | | [address] | | | - LABORATORY | | [...] + + | Performed at: 01 - [facility] [address], | REFERENCE LAB | | [place], [place] [id number] Junior Media Buyer: William Andrew MD, Phone: | [place] | | [phone] | | + + + + + + + + | Performing | Address | City/State/Zipcode | Phone Number | | Organization | | | | + + + + + | REFERENCE LAB | [address] | [place] [address] | [phone] | | [facility] - [place] | Drive [...] + | [facility] | [address] | [place] | [phone] | | [facility] | | [address] | | | - LABORATORY | | [...] ST. | [address] | [place], [place] | [phone] | | [facility] | | [address] | | | - LABORATORY | | [...] [address] | [place] | [phone] | | [facility] | | [address] | | | - LABORATORY | | [...] [address] | [place] | [phone] | | [facility] | | [address] | | | - LABORATORY | | [...] [address] | [place] | [phone] | | [facility] | | [address] | | | - LABORATORY | | | | + + + + + EGD (12/24/2017 1:19 PM PST) + + | Specimen | + + | | + + + + -+ | Narrative | Performed At | + + -+ | | [facility] | | GastroenterologyPatient Name: Moe Venegas Date: 12/24/2017 | PROVATION | | 1:19 PMMRN: [id number] #: [id number] of : | | | 9Admit Type: AmbulatoryAge: 57Room: [facility] 01Gender: MaleNote | | | Status: FinalizedAttending MD: Emmanuel Daniel , [facility] | | | Upper GI endoscopyIndications: Diarrhea, Weight | | | lossProviders: Emmanuel Daniel MD, Maria Isabel Morris RN, | | | Kim Hicks, Project Manager/Team Coach, Jarett | | | Sapna Barakat MD [...] the anesthesiologist and | | | the sound engineering technician in the endoscopy suite. Mental Status [...] PMScope Out: 1:31:13 PM | | | [facility], [address] [facility] | | | [place] [address] | | | - Discharge patient to [...] Out: 1:31:13 PM | | | [facility], [address] [facility], [place], [place] | | | [address] | | + + -+ + +---------+ [...] 12/24/2017 | [facility]OVATION | | 1:17 PMMRN: [id number] #: [id number] of : | | | 9Admit Type: AmbulatoryAge: 57Room: [facility] 01Gender: MaleNote | | | Status: FinalizedAttending MD: Emmanuel Daniel , [facility]cedure: | | | ColonoscopyIndications: Clinically significant diarrhea of | | | unexplained originProviders: Emmanuel Daniel MD, Maria Isabel | | | Arturo RN, Kim Hicks, Project Manager/Team Coach, | | | Jarett Barakat MD (Anesthesia [...] | | | the anesthesiologist and the sound engineering technician in the endoscopy suite. | | [...] Scope In: 1:32:55 PMScope Out: 1:48:57 PM [facility] | | | [facility], [address] [place] [address] | | | [phone] | | | - Await pathology results. [...] |Scope Out: 1:48:57 PM | | | [facility], [address] [place] [address] | | | [address] | | + + -+ + +---------+ [...] | colonic mucosa with focal adenomatous change. CLR:[facility]:C2NR | | | GROSS DESCRIPTION: Received [...] | | cm, submitted, all in (D1). ka:CLR:[facility] ADDITIONAL NOTES: | | | Immunohistochemical studies were performed on this case with the | | | appropriate positive controls that react as expected. This test was | | | developed and its performance characteristics determined by [facility] | | | [facility]. It has not been cleared or approved by the U.S. Food | | | and Drug Administration. The FDA has determined that such clearance | | | or approval is not necessary. This test is used for clinical | | | purposes. It should not be regarded as investigational or for | | | research. [employer] is certified under the Clinical | | | Laboratory Improvement Amendments of 1988 (CLIA) as qualified to | | | perform high complexity clinical laboratory testing. This assay | | | has not been validated for specimens that have been decalcified. | | | PERFORMING LABORATORY: Tissue processing and slide preparation were | | | performed by [facility], [facility] ., [facility] | | | [place] [address] (Resilient Tile Installer: Evan Frausto M.D. CLIA#: | | | [id number]). Professional interpretation was performed by [facility] | | | [facility], [facility] [address], [place] [address] | | | (Resilient Tile Installer: Evan Frausto M.D.; CLIA#: [id number]). | | | Diagnostician: Rafael Bales MD [...]
--- OUTSIDE RECORDS SUMMARY | ~2019-11-01 | XMS | Encounter Summary ---
Demographics + + + | Address | [address] | | | [place] [address] | + + + | Home Phone [...] + + +---------+ + | Maria Isabel Gya | ECON | Unknown | | + + +---------+ + Care Team Providers + +------+ + | Care Technology Adoption Manager Name | Role | Phone | + +------+ + | Kirk French MD | PCP | | + +------+ + Encounter Details +--------+ + + + + | Date | Type | Department | Care Team | Description | +--------+ + + + + | 07/05/ | Hospital | [facility]ICAL | Conversion | Acute neck pain | | 2017 | Encounter | [facility] XRAY | Transaction, | | | | | [address] | Provider Unknown | | | | | [address] [place], [place] | [phone] | | | | | [address] | | | | | | [phone] | Apolonia Ruano | | | | | | MD Shelly [address] | | | | | | [address] | | | | | | [place], [place] | | | | | | [address] | | | | | | [phone] | | +--------+ + + + + [...] + + + +---------+ + + | F[place]-3 Fatty | CAPS, one capsule by | [...] | | | | | | [place] [address] | | | | | | [phone] | | | | | | | | +--------+ + + + + | 11/20/ | Implant | Cardiology | Daljit Singletary, | Remote Device | | 2019 | Monitor | | MD [address] [facility] | Interrogation | | | | | [place], | (Primary Dx); | | | | | [place] [address] | Presence of | | | | | [phone] | permanent cardiac | | | | [...]
--- OUTSIDE RECORDS SUMMARY | ~2019-11-01 | XMS | Encounter Summary ---
Demographics + + + | Address | [address] | | | [place] [address] | + + + | Home Phone [...] Providers + +------+ + | Care Tissue Specialist Name | Role | Phone | [...] | | CARDIOLOGY [address] | Janeen, PRESIDENT AND CEO [address] | Clearance) | | | | [place], | [place], | | | | | [place] [address] | [place] [address] | | | | | [phone] | [phone] | | | | | | | [...] | | | | | | [place] [address] | | | | | | [phone] | | | | | | | | +--------+ + + + + | 11/20/ | Implant | Cardiology | Daljit Singletary, | Remote Device | | 2018 | Monitor | | [address] [place] | Interrogation | | | | | [address] [place], | (Primary Dx); | | | | | [place] [address] | Presence of | | | | | [phone] | permanent cardiac | | | | [...]
--- OUTSIDE RECORDS SUMMARY | ~2019-11-01 | XMS | Encounter Summary ---
Demographics + + + | Address | [address] [place] [address] | | | [place] [address] | + + + | Home Phone [...] [place] | | | | | [address] | | + + + + + Care Team Providers + +------+ + | Care Community Service Specialist Name | Role | Phone [...] Yao | | | | | at [facility] | [facility] | | | | | [address] | [place] [address] | | | | | Loop Mailcode: | | | | | | [id number] Yao Booth | | | | | | [facility] | | | | | | [place], [place] | | | | | | [address] | | | | | | [phone] | | | +--------+ + + + [...] view image for the detailed interpretation from [facility] results. | CARDIOLOGY | + + + + + + + + | Performing | Address | City/State/Zipcode | Phone Number | | Organization | | | | + + + + + | [facility] | [address] | [place], [place] | | | CARDIOLOGY | [address] | [address] | | + + + + + documented in this encounter Visit Diagnoses Not on filedocumented in this encounter"
--- OUTSIDE RECORDS SUMMARY | ~2019-11-01 | XMS | Encounter Summary ---
Demographics + + + | Address | [address] | | | [place] [address] | + + + | Home Phone [...] Providers + +------+ + | Care Credit Report Checker Name | Role | Phone | [...] Provider Unknown | | | | | [place], [place] | [phone] | | | | | [address] | | | | | | [phone] | | | +--------+ + + + [...] + + + +---------+ + + | [place]-3 Fatty | CAPS, one capsule by | [...] W | | | | | | [place], | | | | | | [place] [address] | | | | | | [phone] | | | | | | | | +--------+ + + + + | 11/20/ | Implant | Cardiology | Daljit Singletary, | Remote Device | | 2018 | Monitor | | MD Sim [address] [place] | Interrogation | | | | | [place], | (Primary Dx); | | | | | [place] [address] | Presence of | | | | | [phone] | permanent cardiac | | | | [...]
--- OUTSIDE RECORDS SUMMARY | ~2019-11-01 | XMS | Encounter Summary ---
Demographics + + + | Address | [address] | | | [place] [address] | + + + | Home Phone [...] Providers + +------+ + | Care Electric Locomotive Firer/Fireman Name | Role | Phone | + +------+ + | Kirk French MD | PCP | | + +------+ + Encounter Details +--------+ + + + + | Date | Type | Department | Care Team | Description | +--------+ + + + + | 04/07/ | Hospital | [facility] | Pia Akhtar | Spinal stenosis of | | 2016 | Encounter | MED CTR XRAY [address] | MD [address] | lumbar region | | | | [place] | [address] | | | | | [place] [address] | [place] [address] | | | | | [phone] | [phone] | | | | | | | [...] + + + +---------+ + + | [place]gins-3 Fatty | CAPS, one capsule by | [...] | | | | | | [place] [address] | | | | | | [phone] | | | | | | | | +--------+ + + + + | 11/20/ | Implant | Cardiology | Daljit Singletary, | Remote Device | | 2018 | Monitor | | [address] [facility] | Interrogation | | | | | [place], | (Primary Dx); | | | | | [place] [address] | Presence of | | | | | [phone] | permanent cardiac | | | | [...]
--- OUTSIDE RECORDS SUMMARY | ~2019-11-01 | XMS | Encounter Summary ---
Demographics + + + | Address | [address] | | | [place] [address] | + + + | Home Phone [...] Providers + +------+ + | Care Game Designer Name | Role | Phone | [...] | initial encounter; | | | | [place], [place] | | Elevated blood | | | | [address] | | pressure reading; | | | | [phone] | | Numbness and | | | [...] + + + +---------+ + + | [place]-3 Fatty | CAPS, one capsule by | [...] | | | | | | [place] [address] | | | | | | [phone] | | | | | | | | +--------+ + + + + | 11/20/ | Implant | Cardiology | Gemini Shaistakenneth, | Remote Device | | 2019 | Monitor | | MD [address] [facility] | Interrogation | | | | | [address] [place], | (Primary Dx); | | | | | [place] [address] | Presence of | | | | | [phone] | permanent cardiac | | | | [...]
--- OUTSIDE RECORDS SUMMARY | ~2019-11-01 | XMS | Encounter Summary ---
Demographics + + + | Address | [address] | | | [place] [address] | + + + | Home Phone [...] Providers + +------+ + | Care Abrasive Water Jet Cutter Operator Name | Role | Phone [...] Eva [place] | | | | | [place], [place] | [address] | | | | | [address] | [place] [address] | | | | | [phone] | [phone] | | | | | | | [...] W | | | | | | [place], | | | | | | [place] [address] | | | | | | [phone] | | | | | | | | +--------+ + + + + | 11/20/ | Implant | Cardiology | Daljit Singletary, | Remote Device | | 2018 | Monitor | | MD [facility] | Interrogation | | | | | [place], | (Primary Dx); | | | | | [place] [address] | Presence of | | | | | [phone] | permanent cardiac | | | | [...]
--- OUTSIDE RECORDS SUMMARY | ~2019-11-01 | XMS | Encounter Summary ---
Demographics + + + | Address | [address] | | | [place] [address] | + + + | Home Phone [...] | | | | stenosis | L, PROFESSOR OF LITERATURE [address] | | | | | | Procedures | [address] | | | | | | CT | [address] | | | | | | Myelography | [place], [place] | | | | | | Cervical | [address] | | | | | | Spine | Phone: | | | | | | | [phone] | | | | | | | Fax: | | | | | | | [phone] | | +--------+--------+ + + + + [...] + + | 06/04/ | Hospital | [facility] | Sariah, | Cervical spinal | | 2016 | Encounter | MED CTR CT [address] | Marietta Mason PROFESSOR OF LITERATURE [address] | stenosis | | | | [place], | [address] | | | | | [place] [address] | [place] [address] | | | | | [phone] | [phone] | | | | | | | [...] + + +---------+ + + | [place]-3 Fatty | CAPS, one capsule by | [...] | | | | | | [place] [address] | | | | | | [phone] | | | | | | | | +--------+ + + + + | 11/20/ | Implant | Cardiology | Daljit Singletary, | Remote Device | | 2019 | Monitor | | [facility] | Interrogation | | | | | [address] [place], | (Primary Dx); | | | | | [place] [address] | Presence of | | | | | [phone] | permanent cardiac | | | | [...]
--- OUTSIDE RECORDS SUMMARY | ~2019-11-01 | XMS | Encounter Summary ---
Demographics + + + | Address | [address] | | | [place] [address] | + + + | Home Phone [...] Providers + +------+ + | Care Care Taker Name | Role | Phone | [...] 2012 | | CARDIOLOGY [address] | PHOTOGRAPHY EDITOR [address] | | | | | [place], | [place] [facility] [place] | | | | | [place] [address] | [address] | | | | | [phone] | | | +--------+ + + + [...] | | | | | | [place] [address] | | | | | | [phone] | | | | | | | | +--------+ + + + + | 11/20/ | Implant | Cardiology | Daljit Singletary, | Remote Device | | 2018 | Monitor | | MD [address] | Interrogation | | | | | [place], | (Primary Dx); | | | | | [place] [address] | Presence of | | | | | [phone] | permanent cardiac | | | | [...]
--- OUTSIDE RECORDS SUMMARY | ~2019-11-01 | XMS | Encounter Summary ---
Demographics + + + | Address | [address] | | | [place] [address] | + + + | Home Phone [...] Team Providers + +------+ + | Care Vascular Manager Name | Role | Phone | [...] | | | pain | [address] | [address] | | | | | Procedures | [place] | [place], | | | | | [place] Nuclear | [place] | [place] | | | | | Stress Test | [address] | [address] | | | | | (Vasodilator | Phone: | Phone: | | | | | ) CHG | [phone] | [phone] | | | | | MYOCARDIAL | Fax: | Fax: | | | | | SPECT | [phone] | [phone] | | | | | MULTIPLE | | | | | | | STUDIES | | | +--------+--------+ + + + + Encounter Details +--------+ + + + + | Date | Type | Department | Care Team | Description | +--------+ + + + + | 12/06/ | Hospital | [facility] | Geri Angel, | Other chest pain | | 2013 | Encounter | MED CTR XRAY [address] | GATEHOUSE ATTENDANT [address] | | | | | [place] | [place] | | | | | [place] [address] | [address] | | | | | [phone] | | | +--------+ + + + [...] + + + +---------+ + + | [place]-3 Fatty | CAPS, one capsule by | [...] | | | | | | [place] [address] | | | | | | [phone] | | | | | | | | +--------+ + + + + | 11/20/ | Implant | Cardiology | Daljit Singletary, | Remote Device | | 2018 | Monitor | | [address] | Interrogation | | | | | [place], | (Primary Dx); | | | | | [place] [address] | Presence of | | | | | [phone] | permanent cardiac | | | | [...] At | + + + | [facility] Diagnostic Imaging | [place] | | Department [address] [facility] | [facility] | | [ rep ct [address]] [ rep [facility] | | st zip] Signed | - IMAGING | | | | | Patient Name: MOE GAY | | | Physician: JACKLYN : 1960 Age: 53 Sex: M Unit | | | #: [id number] Exam Date: 12/06/13 [place]: | | | [facility] [place] #: [id number] Page: | | | %(RAD)RES..mtdd.print.filter("pg") of %(RAD) | | | RES..mtdd.print.filter("tpg") | | | | | | Accession Number: [id number] | | | PERSANTINE SESTAMIBI STRESS TEST, [...] Transcribed Date/Time: 12/07/2013 08:18 | | | Ground Crewman Mission Support: <<Signature on File>> | | | | | | Daljit Singletary MD [facility] FASE12/07/13 1321 <Electronically signed | | | by Daljit Singletary MD, FACC, FACP, FASE, FASNC> Daljit | | | MD CLEOPATRA Singletary 12/07/13 0701 Ground Crewman Mission Support: Jessica | | | Pdzajbslvdqzy44/16/14 0818 PARIAS Garcia | | + + + + + + + + | Performing | Address | City[facility] | Phone Number | | Organization | | | | + + + + + | [facility] | [address] | [place] | [phone] | | [facility] | | [address] | | | - IMAGING | | | | + + + + + documented in this encounter Visit Diagnoses + + | Diagnosis | + + | Other chest pain | + + documented in this encounter
--- OUTSIDE RECORDS SUMMARY | ~2019-11-01 | XMS | Encounter Summary ---
Demographics + + + | Address | [address] | | | [place] [address] | + + + | Home Phone [...] Team Providers + +------+ + | Care Sericulturist Name | Role | Phone | + +------+ + PCP | Unavailable | + +------+ + Encounter Details +--------+ + + + + | Date | Type | Department | Care Team | Description | +--------+ + + + + | 01/14/ | Hospital | [facility] | Deburi, | BACKACHE NOS | | 2004 | Encounter | MEDICAL CENTER | MD [address] | | | | | CLINICAL DECISION | S[place]AN [address]ZO | | | | | [address] | [place] [address] | | | | | [place], [place] | [phone] | | | | | [address] | | | | | | [phone] | | | +--------+ + + + [...] W | | | | | | [place], | | | | | | [place] [address] | | | | | | [phone] | | | | | | | | +--------+ + + + + | 11/20/ | Implant | Cardiology | Daljit Singletary, | Remote Device | | 2019 | Monitor | | MD Chiquis Oro | Interrogation | | | | | [place], | (Primary Dx); | | | | | [place] [address] | Presence of | | | | | [phone] | permanent cardiac | | | | [...]
--- OUTSIDE RECORDS SUMMARY | ~2019-11-01 | XMS | Encounter Summary ---
Demographics + + + | Address | [address] | | | [place] [address] | + + + | Home Phone [...] Team Providers + +------+ + | Care Spar Cap Beveler Name | Role | Phone | + +------+ + PCP | Unavailable | + +------+ + Encounter Details +--------+ + + + + | Date | Type | Department | Care Team | Description | +--------+ + + + + | 04/28/ | [facility] | [facility] | Jonathan, | | | 2008 | Encounter | MED CTR EMERGENCY | Martell Cr MD [address] | | | | | CENTER [address] | [place] | | | | | [place] | [place] [address] | | | | | [address] | [phone] | | | | | [phone] | | | +--------+ + + + [...] W | | | | | | [place], | | | | | | [place] [address] | | | | | | [phone] | | | | | | | | +--------+ + + + + | 11/20/ | Implant | Cardiology | Daljit Singletary, | Remote Device | | 2019 | Monitor | | MD Chiquis Oro | Interrogation | | | | | [place] [place], | (Primary Dx); | | | | | [place] [address] | Presence of | | | | | [phone] | permanent cardiac | | | | [...]
--- OUTSIDE RECORDS SUMMARY | ~2019-11-01 | XMS | Encounter Summary ---
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 He seen at [facility]. He was prescribed OxyContin and Dilaudid. The [...] erectile dy sfunction. He was seen at [facility] yesterday and they prescribed him testostero ne cypionate injections. He's not sure when they wanted him to come back for labs. He has a followup appointment with [facility] in one month. Patient complains of history [...] HTN (hypertension); Hypercholesterolemia; Bipolar 1 disorder; Insomnia; Russian Language Professor jennifer neck pain; Depression; Hyperlipidemia; BIPOLAR DISORDER [...] per orders. This note is dictated using Blast Ramp voice recognition software. This note was dictated [...] | | | | | | [place] [address] | | | | | | [phone] | | | | | | | | +--------+ + + + + | 11/20/ | Implant | Cardiology | Daljit Singletary, | Remote Device | | 2018 | Monitor | | MD [address] | Interrogation | | | | | [place], | (Primary Dx); | | | | | [place] [address] | Presence of | | | | | [phone] | permanent cardiac | | | | [...]
--- OUTSIDE RECORDS SUMMARY | ~2019-11-01 | XMS | Encounter Summary ---
Demographics + + + | Address | [address] | | | [place] [address] | + + + | Home Phone [...] Providers + +------+ + | Care Creative Services Coordinator Name | Role | Phone | [...] + + | 10/23/ | Office | [facility] | [place], | CAD (coronary artery | | 2013 | Visit | CARDIOLOGY [address] | [address] | disease) (Primary | | | | [place], | [place], | Dx); Other chest | | | | [place] [address] | [place] [address] | pain; Chest pain; | | | | [phone] | [phone] | Coronary artery | | | | [...] Sanchez Date: October 23, 2014 : 1960 Line Ordering Clinician: Kailey Pruitt RN Device Pastoral Ministries Professor: [employer] Sense (mV) Impedance (?) Capture (V) Capture (ms) A Lead 2.80-4.00 407 1.500 0.09 RV Lead 22.40-31.36 519 2.000 0.09 LV Lead Battery Impedance (?): 658 Battery Voltage (V): 2.79 IN Interval (ms): 155 AR Interval (ms): 240 VA Conduction: Mode Switch Events: 1 % of time: <0.1 -MARKSMANSHIP INSTRUCTOR: <0.1% AP-MARKSMANSHIP INSTRUCTOR: <0.1% -VS: 13.8% AP-VS: 86.1% MARKSMANSHIP INSTRUCTOR: Magnetic Rate: 85 LINDA: 65 LEAH: Current [...] Kailey Pruitt RN 10/23/2014 15:22 ames Janeen, BEATING MACHINE OPERATOR - 10/23/2014 2:22 PM PST PATIENT [...] needed for Chest pain. 25 tablet 12 [place]-3 Fatty Acids (SALMON OIL-1000 PO) CAPS, one capsule by mouth daily twice daily ONE TOUCH DELICA LANCETS [facility] [...] completely be ruled out. D. [facility] 12/25/13, shows non critical coronary [...] He is i n class I-II of [place] Heart Ass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 There are no [...] to go back in 3 days to [place] for an attempt of ablation under general [...] dizziness. He is in class I-II of [place] Heart Ass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 There are n [...] this chart may have been created with Vuze voice recognition software. Occasi onal wrong-word or [...] W | | | | | | [place], | | | | | | [place] [address] | | | | | | [phone] | | | | | | | | +--------+ + + + + | 11/20/ | Implant | Cardiology | Anshushaistatesha Shaistaanshu, | Remote Device | | 2019 | Monitor | | [address] [facility] | Interrogation | | | | | [place], | (Primary Dx); | | | | | [place] [address] | Presence of | | | | | [phone] | permanent cardiac | | | | [...] 23, 2014 : | | | 1960 Line Ordering Clinician: Kailey Pruitt RN Device Pastoral Ministries Professor: | | | Medtronic Sense (mV) Impedance (?) Capture (V) Capture (ms) A | | | Lead 2.80-4.00 407 1.500 0.09 RV Lead 22.40-31.36 519 2.000 0.09 | | | LV Lead Battery Impedance (?): 658 Battery Voltage (V): 2.79 | | | IN Interval (ms): 155 AR Interval (ms): 240 VA Conduction: Mode | | | Switch Events: 1 % of time: <0.1 -MARKSMANSHIP INSTRUCTOR: <0.1% AP-MARKSMANSHIP INSTRUCTOR: <0.1% -VS: | | | 13.8% AP-VS: 86.1% MARKSMANSHIP INSTRUCTOR: Magnetic Rate: 85 LINDA: 65 LEAH: Current [...] | | Date: October 23, 2014DOB: 1960 Line Ordering Clinician: Chikis Saule Pastoral Ministries Professor: | | Medtronic Sense (mV) Impedance (?) Capture (V) Capture (ms) A Lead 2.80-4.00 407 1.500 | | 0.09 RV Lead 22.40-31.36 519 2.000 0.09 LV Lead Battery Impedance (?): 658 Battery | | Voltage (V): 2.79 IN Interval (ms): 155 AR Interval (ms): 240 VA Conduction: Mode | | Switch Events: 1 % of time: <0.1 -MARKSMANSHIP INSTRUCTOR: <0.1% AP-MARKSMANSHIP INSTRUCTOR: <0.1% -VS: 13.8% AP-VS: 86.1% MARKSMANSHIP INSTRUCTOR: | | Magnetic Rate: 85 LINDA: 65 [...]
--- OUTSIDE RECORDS SUMMARY | ~2019-11-01 | XMS | Clinical Summary ---
Demographics + + + | Address | [address] [place] [address] | | | [place] [address] | + + + | Home Phone [...] [place] | | | | | [address] | | + + + + + Care Team Providers + +------+ + | Care Ice Skating Instructor Name | Role | Phone | + +------+ + | Darion Holden DO | PCP | | + +------+ + Source Comments IVETTE is fully live on both EpicCare Ambulatory and EpicCare InPatient.[facility] Allergies + + + + [...] | | | | | | | [address] | | + +--------+ +--------+ + +--------+ | [employer] | AARP | xxxxxxxxxx | 11/22/19 | [phone] | [address] | Indemn | | RETIRED PEOPLE | | | 10-Pre | 9 | [id number] | ity | | | | | sent | | [place] | | | | | | | | [address] | | + +--------+ +--------+ + +--------+ + +--------+ +--------+ + + | Guarantor Name | Accoun | Relation to | Date | Phone | Billing Address | | | t Type | Patient | of | | | | | | | | | | + +--------+ +--------+ + + | Moe Sanchez | Person | Self | [birth year] | [address] | | | al/Per | | 1959 | [phone] | [place] | | | roxanne | | | 8 (Home) | [address] | + +--------+ +--------+ + + Advance Directives + + + + + | Type | Date Recorded | Patient | Explanation | | | | Social Insurance Analyst | | + + + + + | Advance | | | | | Directives and | | | | | Living Will | | | | + + + + + | Power of | | | | | Civil Geotechnical Engineer | | | | + + + + +
--- OUTSIDE RECORDS SUMMARY | ~2019-11-01 | XMS | Encounter Summary ---
Demographics + + + | Address | [address] [place] [address] | | | [place] [address] | + + + | Home Phone [...] [place] | | | | | [address] | | + + + + + Care Team Providers + +------+ + | Care Case Picker Name | Role | Phone | [...]
--- OUTSIDE RECORDS SUMMARY | ~2019-11-01 | XMS | Encounter Summary ---
Demographics + + + | Address | [address] | | | [place] [address] | + + + | Home Phone [...] Team Providers + +------+ + | Care Aeronautics Teacher Name | Role | Phone | [...] Provider Unknown | | | | | [place], [place] | [phone] | | | | | [address] | | | | | | [phone] | | | +--------+ + + + [...] | | | | | | [place] [address] | | | | | | [phone] | | | | | | | | +--------+ + + + + | 11/20/ | Implant | Cardiology | Daljit Singletary, | Remote Device | | 2019 | Monitor | | [address] [facility] | Interrogation | | | | | [place], | (Primary Dx); | | | | | [place] [address] | Presence of | | | | | [phone] | permanent cardiac | | | | [...]
--- OUTSIDE RECORDS SUMMARY | ~2019-11-01 | XMS | Encounter Summary ---
Demographics + + + | Address | [address] | | | [place] [address] | + + + | Home Phone [...] Providers + +------+ + | Care Software Project Manager Name | Role | Phone [...] + | 03/24/ | Telephone | [facility] | [place], | Other (chest pain) | | 2018 | | CARDIOLOGY [address] | [address] | | | | | [place], | [place], | | | | | [place] [address] | [place] [address] | | | | | [phone] | | | | | | | [...] | | | | | | [place] [address] | | | | | | [phone] | | | | | | | | +--------+ + + + + | 11/20/ | Implant | Cardiology | Daljit Singletary, | Remote Device | | 2019 | Monitor | | MD Chiquis Oro | Interrogation | | | | | [place], | (Primary Dx); | | | | | [place] [address] | Presence of | | | | | [phone] | permanent cardiac | | | | [...]
--- OUTSIDE RECORDS SUMMARY | ~2019-11-01 | XMS | Encounter Summary ---
Demographics + + + | Address | [address] | | | [place] [address] | + + + | Home Phone [...] Providers + +------+ + | Care Meat Inspector Name | Role | Phone | [...] visit | CARDIOLOGY [address] | [address] [place] | reprogramming/check | | | | [place], | [place], | DO NOT DELETE | | | | [place] [address] | [place] [address] | (Primary Dx); | | | | [phone] | [phone] | Sinoatrial node | | | | [...] W | | | | | | [place], | | | | | | [place] [address] | | | | | | [phone] | | | | | | | | +--------+ + + + + | 11/20/ | Implant | Cardiology | Daljit Singletary, | Remote Device | | 2018 | Monitor | | MD [address] [place] | Interrogation | | | | | [place], | (Primary Dx); | | | | | [place] [address] | Presence of | | | | | [phone] | permanent cardiac | | | | [...]
--- OUTSIDE RECORDS SUMMARY | ~2019-11-01 | XMS | Encounter Summary ---
Demographics + + + | Address | [address] | | | [place] [address] | + + + | Home Phone [...] Providers + +------+ + | Care Sales Forecast Analyst Name | Role | Phone [...] [place] | | | | | | [address] | | | | | | [phone] | | | +--------+ + + + [...] | | | | | | [place] [address] | | | | | | [phone] | | | | | | | | +--------+ + + + + | 11/20/ | Implant | Cardiology | Daljit Singletary, | Remote Device | | 2018 | Monitor | | [facility] | Interrogation | | | | | [place], | (Primary Dx); | | | | | [place] [address] | Presence of | | | | | [phone] | permanent cardiac | | | | [...]
--- OUTSIDE RECORDS SUMMARY | ~2019-11-01 | XMS | Encounter Summary ---
Demographics + + + | Address | [address] | | | [place] [address] | + + + | Home Phone [...] Team Providers + +------+ + | Care Washtub Worker Name | Role | Phone | [...] W | Dx) | | | | [place] [address] | [address] [place] | | | | | [place], [place] | [place] [address] | | | | | [address] | [phone] | | | | | [phone] | | | +--------+ + + + [...] + + + +---------+ + + | [place]rr[place]-3 Fatty | CAPS, one capsule by | [...] | | | | | | [place] [address] | | | | | | [phone] | | | | | | | | +--------+ + + + + | 11/20/ | Implant | Cardiology | Daljit Singletary, | Remote Device | | 2019 | Monitor | | MD [address] [facility] | Interrogation | | | | | [place], | (Primary Dx); | | | | | [place] [address] | Presence of | | | | | [phone] | permanent cardiac | | | | [...] W?MRN: | | | | | | [id number] | | | [id number] | | | his | | | [...] | | | ent/60 | | | [id number] | | | -5586- | | | [...] | | | St. | | | [place] | | | y H. | | [...] | | | St. | | | [place] | | | y H. | | [...] | | | St. | | | [place] | | | y H. | | [...] | | | St. | | | [place] | | | y H. | | [...] | | | St. | | | [place] | | | y | | | [...] | | | ext. | | | [address] | | | or go | | [...] + | [facility] | [address] | [place] | [phone] | | [facility] | | [address] | | | - LABORATORY | | [...] + | [facility] | [address] | [place] | [phone] | | [facility] | | [address] | | | - LABORATORY | | [...] mL/min/1.73m2 | [facility] | | | SUDANESE | RATE,ESTIMATED | | MEDICAL | | | | mL/min/1.10g8Zcbq than | | CENTER - | | [...] [address] | [place] | [phone] | | [facility] | | [address] | | | - LABORATORY | | [...] [address] | [place] | [phone] | | [facility] | | [address] | | | - LABORATORY | | | | + + + + + documented in this encounter Visit Diagnoses + + | Diagnosis | + + | Bronchitis - Primary Bronchitis, not specified as acute or chronic | + + documented in this encounter"
--- OUTSIDE RECORDS SUMMARY | ~2019-11-01 | XMS | Encounter Summary ---
Demographics + + + | Address | [address] | | | [place] [address] | + + + | Home Phone [...] Providers + +------+ + | Care Camp Boss Name | Role | Phone | + [...] unspecified | [address] | | | | | type | [address] | [place], | | | | | Procedures | [place], | [place] | | | | | [place] | [place] [address] | [address] | | | | | Stress Test | Phone: | Phone: | | | | | (Vasodilator | [phone] | [phone] | | | | | ) CHG | Fax: | Fax: | | | | | MYOCARDIAL | [phone] | [phone] | | | | | SPECT | | | | | | | MULTIPLE | | | | | | | STUDIES LA | | | | | | | CV STRS TST | | | | | | | XERS&/OR RX | | | | | | | CONT ECG W/O | | | | | | | I&R LA | | | | | | | [...] | type | [address] | [address] | | | | | Procedures | ST [place] | [place], | | | | | FUP | [place] | [place] [address] | | | | | | [address] | Phone: | | | | | | Phone: | [phone] | | | | | | [phone] | Fax: | | | | | | Fax: | [phone] | | | | | | [phone] | | +--------+ + + + + + Encounter Details +--------+---------+ + + + | Date | Type | Department | Care Team | Description | +--------+---------+ + + + | 06/27/ | Office | [facility] | Sydni Singletary, | Pacemaker | | 2017 | Visit | CARDIOLOGY [address] | [facility] | reprogramming/check | | | | [place], | [place], | DO NOT DELETE | | | | [place] [address] | [place] [address] | (Primary Dx); Chest | | | | [phone] | [phone] | pain, unspecified | | | | [...] of non-critical coronary artery d isease involving picayune coronary artery of picayune heart without angina pectoris, essential h ypertension, [...] that time, patient has been seen at [place] emergency department on 018 for chest pain [...] Preventative health care Coronary artery disease involving picayune coronary artery of picayune heart without angina pectoris Cannabis abuse, daily [...] by mouth every evening 90 tablet 0 [facility] Natural Products (OSTEO [...] 3RD DOSE, CALL 911 100 tablet 3 [place]-3 Fatty Acids (SALMON OIL-1000 PO) CAPS, one capsule by mouth daily twice daily ONE TOUCH DELICA LANCETS [facility] Check glucose as needed [...] RESULTS reviewed during visit today primarily from [facility]: LIPID Lab Results Component Value Date TRIG [...] arrhythmia performed by Dr. Gambino at [facility] on 01/30/2013. Patient had spontaneous [...] to go back in 3 days to [place] for an attempt of ablation under general [...] PVCs. 2. Non-critical Coronary artery disease involving picayune coronary artery of picayune heart [facility] angina pectoris: A. Normal exercise sestamibi stress test on 05/25/09. LVEF by [facility] ed SPECT was 53%. B. [...] cannot completely be ruled out . D. [facility] 12/25/13, shows non critical coronary [...] He is in a class I of [place] Heart Association functiona l class. There is [...] hadley t, thought to have vasovagal symptoms. B. [...] reviewed and edited this note. Allyson Curtis, Director Engineering 06/27/2018 I, Sydni Singletary MD, personally performed the services described in this documentation, as scribed in my presence and it is both accurate and complete. Allyson Curtis, Med Ass t 06/27/2018 14:15 Electronically signed by: Sydni Singletary MD [facility] 06/27/2018 Portions of this chart may have been created with [employer] voice recognition software. Occasi onal wrong-word or [...] | | | | | | [place] [address] | | | | | | [phone] | | | | | | | | +--------+ + + + + | 11/20/ | Implant | Cardiology | Sydni Singletary, | Remote Device | | 2019 | Monitor | | MD [address] [facility] | Interrogation | | | | | [place], | (Primary Dx); | | | | | [place] [address] | Presence of | | | | | [phone] | permanent cardiac | | | | [...] SYDNI | | | | | | ([id number]) on 06/27/2018 | | | | | [...]
--- OUTSIDE RECORDS SUMMARY | ~2019-11-01 | XMS | Encounter Summary ---
Demographics + + + | Address | [address] | | | [place] [address] | + + + | Home Phone [...] Providers + +------+ + | Care Material Control Clerk Name | Role | Phone [...] + + | 04/24/ | Office | [facility] | [place], | Symptomatic PVCs | | 2012 | Visit | CARDIOLOGY [address] | [address] | (Primary Dx); CAD; | | | | [place], | [place], | Hyperlipidemia; | | | | [place] [address] | [place] [address] | PACEMAKER, PERMANENT | | | | [phone] | [phone] | - [employer] | | | | [...] tablet by mouth Daily. 30 tablet 6 [place]-3 Fatty Acids (SALMON OIL-1000 PO) CAPS, one [...] go back [place] an attempt of ablation under general [...] He is upgraded to class I of [place] Heart Ass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 There are no [...] made to ensure accuracy; however, inadvertent computerized forestry worker errors may be pre sent. documented in this encounter Plan of Treatment +--------+ + + + + | Date | Type | Specialty | Care Team | Description | +--------+ + + + + | 11/09/ | Office | Cardiology | [place], | | | 2018 | Visit | | [address] | | | | | | [place], | | | | | | [place] [address] | | | | | | [phone] | | | | | | | | +--------+ + + + + | 11/20/ | Implant | Cardiology | Daljit Singletary, | Remote Device | | 2018 | Monitor | | MD Sim [facility] | Interrogation | | | | | [place], | (Primary Dx); | | | | | [place] [address] | Presence of | | | | | [phone] | permanent cardiac | | | | [...] Coronary atherosclerosis of unspecified type of vessel, [place] or graft | + + | Hyperlipidemia Other and unspecified hyperlipidemia | + + | PACEMAKER, PERMANENT - [employer] 06/14/09GRANT Cardiac pacemaker in situ | + + documented in this encounter
--- OUTSIDE RECORDS SUMMARY | ~2019-11-01 | XMS | Encounter Summary ---
Demographics + + + | Address | [address] | | | [place] [address] | + + + | Home Phone [...] Providers + +------+ + | Care Microsoft Developer Name | Role | Phone | [...] + | 06/20/ | Telephone | [facility] | Daljit Singletary, | Chest Pain | | 2018 | | CARDIOLOGY [address] | MD [address] [place] | | | | | [place], | [place], | | | | | [place] [address] | [place] [address] | | | | | [phone] | [phone] | | | | | | | [...] [place], | | | | | | [place] [address] | | | | | | [phone] | | | | | | | | +--------+ + + + + | 11/20/ | Implant | Cardiology | Daljit Singletary, | Remote Device | 2018 | Monitor | | [facility] | Interrogation | | | | | [place], | (Primary Dx); | | | | | [place] [address] | Presence of | | | | | [phone] | permanent cardiac | | | | [...]
--- OUTSIDE RECORDS SUMMARY | ~2019-11-01 | XMS | Encounter Summary ---
Demographics + + + | Address | [address] | | | [place] [address] | + + + | Home Phone [...] +------+ + | Care Cut Off Saw Operator Metal Name | Role | Phone | + +------+ + PCP | Unavailable | + +------+ + Encounter Details +--------+ + + + + | Date | Type | Department | Care Team | Description | +--------+ + + + + | 06/23/ | [facility] | [facility] | Arthur Page MD | | | 2007 - | Encounter | MED CTR MED ONC | [address] [facility] | | | | | [address] [place] | [place] | | | 06/25/ | | [place] [address] | [address] | | | 2007 | | [phone] | | | +--------+ + + + [...] | | | | | | [place] [address] | | | | | | [phone] | | | | | | | | +--------+ + + + + | 11/20/ | Implant | Cardiology | Daljit Singletary, | Remote Device | | 2019 | Monitor | | MD Chiquis Oro | Interrogation | | | | | [place], | (Primary Dx); | | | | | [place] [address] | Presence of | | | | | [phone] | permanent cardiac | | | | [...]
--- OUTSIDE RECORDS SUMMARY | ~2019-11-01 | XMS | Encounter Summary ---
Demographics + + + | Address | [address] | | | [place] [address] | + + + | Home Phone [...] +------+ + | Care Exceptional Children Teacher Assistant Name | Role | Phone [...] + + | 01/25/ | Office | [facility] | Daljit Singletary, | Other chest pain | | 2012 | Visit | CARDIOLOGY [address] | [address] [place] | (Primary Dx); PVC's | | | | [place], | [place], | (premature | | | | [place] [address] | [place] [address] | ventricular | | | | [phone] | [phone] | contractions) | | | | | [...] note, lorraine painting has appointment to see mission support specialist for PVCs ablations consultation on January [...] | | | | | | [place] [address] | | | | | | [phone] | | | | | | | | +--------+ + + + + | 11/20/ | Implant | Cardiology | Daljit Singletary, | Remote Device | | 2018 | Monitor | | MD Sim [facility] | Interrogation | | | | | [place], | (Primary Dx); | | | | | [place] [address] | Presence of | | | | | [phone] | permanent cardiac | | | | [...]
--- OUTSIDE RECORDS SUMMARY | ~2019-11-01 | XMS | Encounter Summary ---
Demographics + + + | Address | [address] | | | [place] [address] | + + + | Home Phone [...] Providers + +------+ + | Care Center Machine Set Up Operator Name | Role | Phone | + +------+ + | Michael Amanda DO | PCP | | + +------+ + Encounter Details +--------+ + + + + | Date | Type | Department | Care Team | Description | +--------+ + + + + | 12/25/ | Hospital | [facility] | Daljit Singletary, | | | 2013 | Encounter | MED CTR XRAY [address] | | | | | [address] [place] | [address] [place], | | | | | [place] [address] | [place] [address] | | | | | [phone] | [phone] | | | | | | | [...] + + + +---------+ + + | Glady-3 Fatty | CAPS, one capsule by | [...] | | | | | | [place] [address] | | | | | | [phone] | | | | | | | | +--------+ + + + + | 11/20/ | Implant | Cardiology | Anshujohnsoncherelle Shaistapawanotto, | Remote Device | | 2019 | Monitor | | [address] [facility] | Interrogation | | | | | [address], | (Primary Dx); | | | | | [place] [address] | Presence of | | | | | [phone] | permanent cardiac | | | | [...] Performed At | + + + | [facility] | [place] | | Department [address] [place] [address] | [facility] | | [ rep ct [address]] [ rep [facility] | | st zip] Signed | - IMAGING | | | | | Patient Name: MOE GAY | | | Physician: MIGUELINA : 1960 Age: 53 Sex: M Unit | | | #: [id number] Exam Date: 12/25/13 Location: | | | SDS SDS-D Report #: [id number] Page: | | | %(RAD)RES..mtdd.print.filter("pg") of %(RAD) | | | RES..mtdd.print.filter("tpg") | | | | | | Accession Number: [id number] | | | LEFT HEART CATHETERIZATION, 12/25/2013 [...] the patient was taken to the cardiac factory laborer. She | | | was prepared and draped in the usual fashion. Under sterile | | | technique and local anesthesia, percutaneous access was obtained | | | using #5 Ukrainian sheath in the right radial artery. Right heart cath | | | was not performed on this patient. Left ventriculography was | | | performed using #5 multipurpose diagnostic catheter. The selective | | | coronary angiography was then performed in several sagittal and | | | oblique projections using #5 multipurpose and #5 Ukrainian JL 3.5 | | | diagnostic catheters. [...] Transcribed | | | Date/Time: 12/25/2013 11:52 Plater Hot Dip: | | | <<Signature on File>> | | | Suwong | | | MD CLEOPATRA Singletary FASNanette12/25/13 1343 <Electronically signed by | | | Daljit Singletary MD, [facility], FAC, ADELINE, FASNC> Daljit | | | MD CLEOPATRA Singletary 12/25/13 1035 Plater Hot Dip: [facility] | | | Reozkymnejyhg04/03/14 1152 | | + + + + + + + + | Performing | Address | City/State/Zipcode | Phone Number | | Organization | | | | + + + + + | [facility] | [address] | [place] | [phone] | | [facility] | | [address] | | | - IMAGING | | | | + + + + + documented in this encounter Visit Diagnoses Not on filedocumented in this encounter
--- OUTSIDE RECORDS SUMMARY | ~2019-11-01 | XMS | Encounter Summary ---
Demographics + + + | Address | [address] | | | [place] [address] | + + + | Home Phone [...] Providers + +------+ + | Care Installation Manager Name | Role | Phone | + +------+ + | Kirk French MD | PCP | | + +------+ + Encounter Details +--------+ + + + + | Date | Type | Department | Care Team | Description | +--------+ + + + + | 12/24/ | Orders Only | [facility] | Conversion | | | 2018 | | [facility] | Transaction, | | | | | PRIMARY CARE [address] | Provider Unknown | | | | | [address] | [phone] | | | | | [place] | | | | | | [address] | | | | | | [phone] | | | +--------+ + + + [...] W | | | | | | [place], | | | | | | [place] [address] | | | | | | [phone] | | | | | | | | +--------+ + + + + | 11/20/ | Implant | Cardiology | Daljit Singletary, | Remote Device | | 2018 | Monitor | | [address] [facility] | Interrogation | | | | | [place], | (Primary Dx); | | | | | [place] [address] | Presence of | | | | | [phone] | permanent cardiac | | | | [...]
--- OUTSIDE RECORDS SUMMARY | ~2019-11-01 | XMS | Encounter Summary ---
Demographics + + + | Address | [address] | | | [place] [address] | + + + | Home Phone [...] Providers + +------+ + | Care Forensic Scientist Name | Role | Phone | [...] 2019 | | GASTROENTEROLOGY | [address], [place] | | | | | [address] [place] | [address] [place], [place] | | | | | [address] [place], [place] | [address] | | | | | [address] | | | | | | [phone] | | | +--------+ + + + [...] W | | | | | | [address] [place], | | | | | | [place] [address] | | | | | | [phone] | | | | | | | | +--------+ + + + + | 11/20/ | Implant | Cardiology | Daljit Singletary, | Remote Device | | 2018 | Monitor | | MD [address] | Interrogation | | | | | [place], | (Primary Dx); | | | | | [place] [address] | Presence of | | | | | [phone] | permanent cardiac | | | | [...]
--- OUTSIDE RECORDS SUMMARY | ~2019-11-01 | XMS | Encounter Summary ---
Demographics + + + | Address | [address] | | | [place] [address] | + + + | Home Phone [...] Providers + +------+ + | Care Commercial Lending Vice President Name | Role | Phone [...] 2019 | | GASTROENTEROLOGY | [address], [place] | Recommendations | | | | [address] [place] | [address] [place], [place] | | | | | [address] [place], [place] | [address] | | | | | [address] | | | | | | [phone] | | | +--------+ + + + [...] | | | | | | [place] [address] | | | | | | [phone] | | | | | | | | +--------+ + + + + | 11/20/ | Implant | Cardiology | Daljit Singletary, | Remote Device | | 2018 | Monitor | | [address] | Interrogation | | | | | [place], | (Primary Dx); | | | | | [place] [address] | Presence of | | | | | [phone] | permanent cardiac | | | | [...]
--- OUTSIDE RECORDS SUMMARY | ~2019-11-01 | XMS | Encounter Summary ---
Demographics + + + | Address | [address] | | | [place] [address] | + + + | Home Phone [...] Team Providers + +------+ + | Care Reinforcing Steel Placer Name | Role | Phone | [...] 2019 | | GASTROENTEROLOGY | MD [address] | | | | | [address] | [place]. [place] | | | | | [address] [place] | [place], [place] [address] | | | | | [address] | | | | | | [phone] | | | +--------+ + + + [...] | | | | | | [place] [address] | | | | | | [phone] | | | | | | | | +--------+ + + + + | 11/20/ | Implant | Cardiology | Daljit Singletary, | Remote Device | | 2018 | Monitor | | 401 [facility] | Interrogation | | | | | [place], | (Primary Dx); | | | | | [place] [address] | Presence of | | | | | [phone] | permanent cardiac | | | | [...]
--- OUTSIDE RECORDS SUMMARY | ~2019-11-01 | XMS | Encounter Summary ---
Demographics + + + | Address | [address] | | | [place] [address] | + + + | Home Phone [...] Team Providers + +------+ + | Care Agribusiness Professor Name | Role | Phone | [...] | | | | CENTER [address] | [address] | (Primary Dx) | | | | [place], [place] | [place], [place] | | | | | [address] | [address] | | | | | [phone] | | | +--------+ + + + [...] | | | | | | [place], | | | | | | [place] [address] | | | | | | [phone] | | | | | | | | +--------+ + + + + | 11/20/ | Implant | Cardiology | Sydni Singletary, | Remote Device | | 2019 | Monitor | | [address] | Interrogation | | | | | [place], | (Primary Dx); | | | | | [place] [address] | Presence of | | | | | [phone] | permanent cardiac | | | | [...] W?MRN: | | | | | | [id number] | | | [id number] | | | his | | | [...] | | | ent/60 | | | [id number] | | | -5586- | | | [...] | | | St. | | | [place] | | | y | | | [...] | | | ext. | | | [address] | | | or go | | [...] | | | M.D. | | | Analytical Lead | | | al | | | [...] | | | | | | [employer] | | | | | [...] ST. | [address] | [place] | [phone] | | [facility] | | [address] | | | - LABORATORY | | [...] [address] | [place] | [phone] | | [facility] | | [address] | | | - LABORATORY | | [...] [address] | [place] | [phone] | | [facility] | | [address] | | | - LABORATORY | | [...] mL/min/1.73m2 | . APOLONIA | | | ANGOLAN | RATE,ESTIMATED | | MEDICAL | | | | mL/min/1.23s1Kabo than | | CENTER - | | [...] ST. | [address] | [place] | [phone] | | [facility] | | [address] | | | - LABORATORY | | [...] ST. | [address] | [place], [place] | [phone] | | [facility] | | [address] | | | - LABORATORY | | [...] + | [facility] | [address] | [place] | [phone] | | [facility] | | [address] | | | - LABORATORY | | [...] SYDNI | | | | | | ([id number]) on 06/22/2018 | | | | | [...]
--- OUTSIDE RECORDS SUMMARY | ~2019-11-01 | XMS | Encounter Summary ---
Demographics + + + | Address | [address] | | | [place] [address] | + + + | Home Phone [...] Providers + +------+ + | Care Postdoctoral Research Fellow Name | Role | Phone | + [...] [place] | | | | | [place] | | [address] Phone: | | | | | CYSTO/URETER | | [phone] | | | | | O | | Fax: | | | | | W/LITHOTRIPS | | [phone] | | | | | Y &INDWELL [...] | | | [address] | [place] | | | | | [place] | [address] | | | | | [address] | | | | | | [phone] | | | +--------+ + + + [...] +----+---+ + + | | 0 | Burnett | | | | 8 | 43-degrees | | | | 2 | | | | | 7 | | | +----+---+ + + | | 0 | First | | | | 8 | Inc/Proc St | | | | 2 | | | | | 8 | | | +----+---+ + + | | 0 | [place] off | | | | 9 | [...] 04/13/19 1219 by | | eral | xqwl-oyn-gleqkt catheter system; | Dominga Steen RN | [...] | | | | | | [place] [address] | | | | | | [phone] | | | | | | | | +--------+ + + + + | 11/20/ | Implant | Cardiology | Daljit Singletary, | Remote Device | | 2018 | Monitor | | MD [address] | Interrogation | | | | | [address] [place], | (Primary Dx); | | | | | [place] [address] | Presence of | | | | | [phone] | permanent cardiac | | | | [...] | | | | Starting [facility] 04/13/19 at 0823, | | AM [...]
--- OUTSIDE RECORDS SUMMARY | ~2019-11-01 | XMS | Encounter Summary ---
Demographics + + + | Address | [address] | | | [place] [address] | + + + | Home Phone [...] Team Providers + +------+ + | Care Vinyl Top Installer Name | Role | Phone | [...] + + | 05/15/ | Office | [facility] | Matthew Uriarte | Kidney stones | | 2019 | Visit | [address] | MD Tawanna [address] | (Primary Dx) | | | | [place], [place] | [place], [place] | | | | | [address] | [address] | | | | | [phone] | | | +--------+---------+ + + + [...] [employer] Peptic ulcer disease Premature ventricular contraction [facility] health care 06/26/2013 LAST PSA:12/16/2010 [...] CV LHC; Surgeon: Daljit Singletary MD; Location: [facility] CV LAB CARDIAC CATHERIZATION N/A 01/25/2019 Procedure: CV Cor Angio; Surgeon: Daljit Singletary MD; Location: [facility] CV LAB COLONOSCOPY N/A 12/24/2017 Procedure: COLONOSCOPY; Surgeon: Emmanuel Daniel MD; Location: [facility] MEDICAL PROCEDURE UNIT COLONOSCOPY N/A 01/05/2019 Procedure: COLONOSCOPY; Surgeon: Emmanuel Daniel MD; Location: [facility] MEDICAL PROCEDURE UNIT EGD 12/24/2017 [...] Procedure: EGD; Surgeon: Emmanuel Daniel MD; Location: [facility] MEDICAL PROCEDURE UNIT UPPER GASTROINTESTINAL ENDOSCOPY N/A 01/05/2019 Procedure: EGD; Surgeon: Emmanuel Daniel MD; Location: [facility] MEDICAL PROCEDURE UNIT URETEROSCOPY Left 04/13/2019 Procedure: Cystoscopy, Left ureteroscopy with laser lithotripsy, Left ureteral stent place ment; Surgeon: Matthew Uriarte MD; Location: [facility] MAIN OR VASECTOMY Family History: Family [...] 911, Disp: 100 ta blet, Rfl: 3 [place]-3 Fatty Acids (SALMON OIL-1000 PO), CAPS, one [...] pH, Urine 8.0 5.0 - 8.0 Specific [place] 1.008 1.001 - 1.030 Protein, Urine Negative [...] have not thoroughly proofread this note, and quickbooks bookkeeper errors are very likely to occur. CC: [...] W | | | | | | [place], | | | | | | [place] [address] | | | | | | [phone] | | | | | | | | +--------+ + + + + | 11/20/ | Implant | Cardiology | Daljit Singletary, | Remote Device | | 2018 | Monitor | | [facility] | Interrogation | | | | | [place], | (Primary Dx); | | | | | [place] [address] | Presence of | | | | | [phone] | permanent cardiac | | | | [...]
--- OUTSIDE RECORDS SUMMARY | ~2019-11-01 | XMS | Encounter Summary ---
Demographics + + + | Address | [address] | | | [place] [address] | + + + | Home Phone [...] Providers + +------+ + | Care Tube Drawing Supervisor Name | Role | Phone | [...] unspecified | [address] | | | | | type | [address] | [place], | | | | | Procedures | [place], | [place] | | | | | [place] | [place] [address] | [address] | | | | | Stress Test | Phone: | Phone: | | | | | (Vasodilator | [phone] | [phone] | | | | | ) CHG | Fax: | Fax: | | | | | MYOCARDIAL | [phone] | [phone] | | | | | SPECT | [...] unspecified | [address] | [address] | | | | | type | [address] | [place], | | | | | Procedures | [place], | [place] | | | | | [place] | [place] [address] | [address] | | | | | Stress Test | Phone: | Phone: | | | | | (Vasodilator | [phone] | [phone] | | | | | ) CHG | Fax: | Fax: | | | | | MYOCARDIAL | [phone] | [phone] | | | | | SPECT | [...] | 07/21/ | Hospital | [facility] | Daljit Singletary, | Chest pain, | | 2018 | Encounter | MED CTR NUCLEAR | MD [address] | unspecified type | | | | MEDICINE [address] [place], | | | | | [place], | [place] [address] | | | | | [place] [address] | [phone] | | | | | [phone] | | | | | | | Software Development EngineerPavel | | +--------+ + + + + [...] | | | | | | [place] [address] | | | | | | [phone] | | | | | | | | +--------+ + + + + | 11/20/ | Implant | Cardiology | Daljit Singletary, | Remote Device | | 2019 | Monitor | | [facility] | Interrogation | | | | | [place], | (Primary Dx); | | | | | [place] [address] | Presence of | | | | | [phone] | permanent cardiac | | | | [...] | | | | | doctor, Starting [facility] 07/21/18 at | | | | [...] | | | | | | Starting [facility] 07/21/18 at 0822, For | | | | | | | 1 dose, Nuclear Medicine | | | | | | + +-------+ + +---+---+ +---+---+ | | | +---+---+ documented in this encounter"
--- OUTSIDE RECORDS SUMMARY | ~2019-11-01 | XMS | Encounter Summary ---
Demographics + + + | Address | [address] | | | [place] [address] | + + + | Home Phone [...] Team Providers + +------+ + | Care Dairy Helper Name | Role | Phone | [...] + + | 01/03/ | Telephone | [facility] | Emmanuel Daniel MD | Results, Pathology | | 2018 | | GASTROENTEROLOGY | [address] [place] | (egd,colon) | | | | [address] [place] | [address] [place], [place] | | | | | 210 [place], [place] | [address] | | | | | [address] | | | | | | [phone] | | | +--------+ + + + [...] W | | | | | | [place], | | | | | | [place] [address] | | | | | | [phone] | | | | | | | | +--------+ + + + + | 11/20/ | Implant | Cardiology | Daljit Singletary, | Remote Device | | 2018 | Monitor | | MD [address] | Interrogation | | | | | [place], | (Primary Dx); | | | | | [place] [address] | Presence of | | | | | [phone] | permanent cardiac | | | | [...]
--- OUTSIDE RECORDS SUMMARY | ~2019-11-01 | XMS | Encounter Summary ---
Demographics + + + | Address | [address] [place] [address] | | | [place] [address] | + + + | Home Phone [...] [place] | | | | | [address] | | + + + + + [...] | | | [address] | [place], [place] | | | | | Mailcode: [place] | [address] | | | | | for Health and | [phone] | | | | | [facility], [facility] [address] | | | | | | [place], [place] | | | | | | [address] | | | | | | [phone] | | | +--------+ + + + [...]
--- OUTSIDE RECORDS SUMMARY | ~2019-11-01 | XMS | Encounter Summary ---
Demographics + + + | Address | [address] | | | [place] [address] | + + + | Home Phone [...] Providers + +------+ + | Care Transportation Escort Name | Role | Phone | + +------+ + | Kirk French MD | PCP | | + +------+ + Encounter Details +--------+ + + + + | Date | Type | Department | Care Team | Description | +--------+ + + + + | 01/05/ | Orders Only | [facility] | Emmanuel Daneil MD | | | 2019 | | [facility] | [address], [place] | | | | | PATHOLOGY [address] | [address] [place], [place] | | | | | BLVD [place], [place] | [address] | | | | | [address] | | | | | | [phone] | | | +--------+ + + + [...] | | | | | | [place], | | | | | | [place] [address] | | | | | | [phone] | | | | | | | | +--------+ + + + + | 11/20/ | Implant | Cardiology | Daljit Singletary, | Remote Device | | 2018 | Monitor | | MD [address] | Interrogation | | | | | [place], | (Primary Dx); | | | | | [place] [address] | Presence of | | | | | [phone] | permanent cardiac | | | | [...] | | | (atherosclerotic heart disease of [place] coronary artery without | | | angina [...] chronic or | | | microscopic colitis. BES:[facility]:C3NR GROSS DESCRIPTION: A. The | | | specimen, labeled "Moselle, duodenal biopsy" is received in formalin | | | and consists of seven 0.1-0.5 cm lin fragments. Entirely submitted in | | | (A1). B. The specimen, labeled "Moselle, right colon" is received | | | in formalin and consists of six 0.2-0.3 cm lin fragments. Entirely | | | submitted in (B1). C. The specimen, labeled "Moselle, left colon" | | | is received in formalin and consists of six 0.2-0.3 cm lin-pink | | | fragments. Entirely submitted in (C1). am:AMB:portillo PERFORMING | | | LABORATORY: The technical component was performed by [employer] | | | [facility], [address] [place] [address] (Furniture Detailer: | | | Kailey Stafford MD; CLIA# [id number]). Professional interpretation was | | | performed by [employer], [facility], [address] | | | [place] [address] (Furniture Detailer: Ishaan | | | Anthony Dao; CLIA#: [id number]). Diagnostician: Ishaan Dao | | | Pathologist [...]
--- OUTSIDE RECORDS SUMMARY | ~2019-11-01 | XMS | Encounter Summary ---
Demographics + + + | Address | [address] | | | [place] [address] | + + + | Home Phone [...] Team Providers + +------+ + | Care Endoscopy Nurse Name | Role | Phone | + +------+ + PCP | Unavailable | + +------+ + Encounter Details +--------+ + + + + | Date | Type | Department | Care Team | Description | +--------+ + + + + | 09/08/ | [facility] | [facility] | Naresh Mckeon | | | 1998 | Encounter | MED CTR SLEEP | MD Chaya [address] | | | | | CENTER [address] | [address] | | | | | [place] | [place] [address] | | | | | [address] | [phone] | | | | | [phone] | | | +--------+ + + + [...] | | | | | | [place] [address] | | | | | | [phone] | | | | | | | | +--------+ + + + + | 11/20/ | Implant | Cardiology | Daljit Singletary, | Remote Device | | 2019 | Monitor | | MD [address]iqu[address]ro | Interrogation | | | | | [place] [place], | (Primary Dx); | | | | | [place] [address] | Presence of | | | | | [phone] | permanent cardiac | | | | [...]
--- OUTSIDE RECORDS SUMMARY | ~2019-11-01 | XMS | Encounter Summary ---
Demographics + + + | Address | [address] | | | [place] [address] | + + + | Home Phone [...] Providers + +------+ + | Care Senior Linux Administrator Name | Role | Phone | [...] + + | 09/09/ | Office | [facility] | Michael Amanda, | Hyperlipidemia; | | 2011 | Visit | MEDICINE [place] | DO [address] | Hypertension; | | | | [address] | [place] | Chronic pain | | | | [place] | [address] | syndrome; Neck pain, | | | | [address] | | chronic | | | | [phone] | | | +--------+---------+ + + + [...] damage history No ASHD (either angina; prior DC; prior CABG) No cardiac end organ damage [...] slowly cutting back. Pt was going through [facility] for opiate medications prior to the surgery. Pt has hx of drug use. 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 Review of Systems Constitutional: Positive for fatigue. Respiratory: Negative. Cardiovascular: Negative. Musculoskeletal: Positive for myalgias, back pain, arthralgias and gait problem. Psychiatric/Behavioral: Positive for sleep disturbance and dysphoric mood. Negative for ijmbo cidal ideas. Objective: Physical Exam Constitutional: He [...] W | | | | | | [place], | | | | | | [place] [address] | | | | | | [phone] | | | | | | | | +--------+ + + + + | 11/20/ | Implant | Cardiology | Daljit Singletary, | Remote Device | | 2019 | Monitor | | [place] [facility] | Interrogation | | | | | [place], | (Primary Dx); | | | | | [place] [address] | Presence of | | | | | [phone] | permanent cardiac | | | | [...]
--- OUTSIDE RECORDS SUMMARY | ~2019-11-01 | XMS | Encounter Summary ---
Demographics + + + | Address | [address] | | | [place] [address] | + + + | Home Phone [...] Providers + +------+ + | Care Lead Handler Name | Role | Phone | [...] + | 01/03/ | Office | [facility] | Silvia, | CAD (coronary artery | | 2012 | Visit | CARDIOLOGY [address] | Janeen, LIVESTOCK AGENT [address] | disease) (Primary | | | | [place], | [place], | Dx); Bradycardia; | | | | [place] [address] | [place] [address] | HTN (hypertension); | | | | [phone] | [phone] | Lightheadedness | | | | | [...] tablet Take 1,000 mg by mouth Daily. [place]-3 Fatty Acids (SALMON OIL-1000 PO) CAPS, one [...] himself t o the emergency department at [facility] in [place], [place]. EKG showed normal s inus rhythm [...] Refer patient to an electrophysiology specialist in [place] for further evaluation for P VC's ablation. I have given verbal instructions and written material for patient to read mo re about the procedure. 2. Check blood pressure and pulse twice daily for two weeks and return the log to our offic e. 3. Followup appointment after patient's appointment with interactive media marketing specialist/ablation. IJaneen ARNP, saw this patient under the direct supervision of Daljit Singletary MD Portions of this report were transcribed using voice recognition software. Every effort wa s made to ensure accuracy; however, inadvertent computerized setter up errors may be pre sent. documented in this encounter Plan of Treatment +--------+ + + + + | Date | Type | Specialty | Care Team | Description | +--------+ + + + + | 11/09/ | Office | Cardiology | Silvia, | | | 2018 | Visit | | PARISA [place] [address] | | | | | | [place], | | | | | | [place] [address] | | | | | | [phone] | | | | | | | | +--------+ + + + + | 11/20/ | Implant | Cardiology | Daljit Singletary, | Remote Device | | 2018 | Monitor | | MD [address] | Interrogation | | | | | [place], | (Primary Dx); | | | | | [place] [address] | Presence of | | | | | [phone] | permanent cardiac | | | | [...] of unspecified type | | of vessel, [place] or graft | + + | Bradycardia Other specified cardiac dysrhythmias | + + | HTN (hypertension) Unspecified essential hypertension | + + | Lightheadedness Dizziness and giddiness | + + documented in this encounter
--- OUTSIDE RECORDS SUMMARY | ~2019-11-01 | XMS | Encounter Summary ---
Demographics + + + | Address | [address] | | | [place] [address] | + + + | Home Phone [...] Team Providers + +------+ + | Care Leaded Glass Installer Name | Role | Phone | [...] [address] | | | | [address] [place], | [place], | | | | | [place] [address] | [place] [address] | | | | | [phone] | [phone] | | | | | | | [...] W | | | | | | [place] [place], | | | | | | [place] [address] | | | | | | [phone] | | | | | | | | +--------+ + + + + | 11/20/ | Implant | Cardiology | Daljit Singletary, | Remote Device | | 2018 | Monitor | | [address] | Interrogation | | | | | [place], | (Primary Dx); | | | | | [place] [address] | Presence of | | | | | [phone] | permanent cardiac | | | | [...] [address] | [place] | [phone] | | [facility] | | [address] | | | - LABORATORY | | [...]
--- OUTSIDE RECORDS SUMMARY | ~2019-11-01 | XMS | Encounter Summary ---
Demographics + + + | Address | [address] | | | [place] [address] | + + + | Home Phone [...] + +------+ + | Care Chain Maker Hand Name | Role | Phone [...] W | Dx) | | | | MERRICK [address] | [address] [place] | | | | | [place], [place] | [place] [address] | | | | | [address] | [phone] | | | | | [phone] | | | +--------+ + + + [...] + + + +---------+ + + | Marquand-3 Fatty | CAPS, one capsule by | [...] | | | | | | [place] [address] | | | | | | [phone] | | | | | | | | +--------+ + + + + | 11/20/ | Implant | Cardiology | Daljit Singletary, | Remote Device | | 2019 | Monitor | | MD [facility] | Interrogation | | | | | [place], | (Primary Dx); | | | | | [place] [address] | Presence of | | | | | [phone] | permanent cardiac | | | | [...] W?MRN: | | | | | | [id number] | | | [id number] | | | his | | | [...] | | | ent/60 | | | [id number] | | | -5586- | | | [...] | | | St. | | | [place] | | | y H. | | [...] | | | St. | | | [place] | | | y H. | | [...] | | | St. | | | [place] | | | y H. | | [...] | | | St. | | | [place] | | | y H. | | [...] | | | St. | | | [place] | | | y | | | [...] | | | ext. | | | [phone] | | | or go | | [...] + | [facility] | [address] | [place] | [phone] | | [facility] | | [address] | | | - LABORATORY | | [...] Top Tube | | | STJuan [facility]RINE[facility] | | | | | | MEDICAL [...] + | [facility] | [address] | [place] | [phone] | | [facility] | | [address] | | | - LABORATORY | | [...] mL/min/1.73m2 | [facility] | | | DUTCH | RATE,ESTIMATED | | MEDICAL | | | | mL/min/1.84c4Rang than | | CENTER - | | [...] [address] | [place] | [phone] | | [facility] | | [address] | | | - LABORATORY | | [...] [address] | [place] | [phone] | | [facility] | | [address] | | | - LABORATORY | | | | + + + + + documented in this encounter Visit Diagnoses + + | Diagnosis | + + | Bronchitis - Primary Bronchitis, not specified as acute or chronic | + + documented in this encounter"
--- OUTSIDE RECORDS SUMMARY | ~2019-11-01 | XMS | Encounter Summary ---
Demographics + + + | Address | [address] | | | [place] [address] | + + + | Home Phone [...] Providers + +------+ + | Care Radio Interference Supervisor Name | Role | Phone | + +------+ + | Michael Amanda DO | PCP | | + +------+ + Encounter Details +--------+ + + + + | Date | Type | Department | Care Team | Description | +--------+ + + + + | 05/11/ | Hospital | [facility] | Conversion | Lumbago; | | 2013 | Encounter | MEDICAL CENTER | Transaction, | Postlaminectomy | | | | CLINICAL DECISION | Provider Unknown | syndrome, cervical | | | | [address] | | region; Cervicalgia | | | | [place], [place] | (Fax) | | | | | [address] | Cesar, | | | | | [phone] | MD Gamaliel | | +--------+ + [...] + + + +---------+ + + | Yorkshire-3 Fatty | CAPS, one capsule by | [...] Date of Service: 05/11/14 150 Status: Signed [place]eller: Meliza Macario RN (Registered Nurse) Pt discharged [...] Date of Service: 05/11/14 142 Status: Signed Timber Feller: Heike Mckeon RN (Registered Nurse) Called doctor [...] W | | | | | | [place], | | | | | | [place] [address] | | | | | | [phone] | | | | | | | | +--------+ + + + + | 11/20/ | Implant | Cardiology | Daljit Singletary, | Remote Device | | 2018 | Monitor | | MD [facility] | Interrogation | | | | | [place], | (Primary Dx); | | | | | [place] [address] | Presence of | | | | | [phone] | permanent cardiac | | | | [...] | | | intrathecal use. See the installer molding and trim examination for details of the | | | injection. Bone algorithm noncontrast technique with reformatted | | | sagittal and coronal images. Prior study for review : CT discogram | | | from 2004 was used to orient this examination given the transitional | | | anatomy of the lumbosacral junction FINDINGS: Meat Pumper is notable | | | for a [...] for intrathecal use. See | | the installer molding and trim examination for details of the injection. Bone algorithm noncontrast | | technique with reformatted sagittal and coronal images. Prior study for review : CT | | discogram from 2004 was used to orient this examination given the transitional anatomy | | of the lumbosacral junction FINDINGS: Meat Pumper is notable for a pacing system. Anterior [...]
--- OUTSIDE RECORDS SUMMARY | ~2019-11-01 | XMS | Encounter Summary ---
Demographics + + + | Address | [address] | | | [place] [address] | + + + | Home Phone [...] Providers + +------+ + | Care Metal Engineering Process Worker Name | Role | Phone | [...] | | CARDIOLOGY [address] | [address] [place] | | | | | [place], | [place], | | | | | [place] [address] | [place] [address] | | | | | [phone] | [phone] | | | | | | | [...] | | | | | | [place] [address] | | | | | | [phone] | | | | | | | | +--------+ + + + + | 11/20/ | Implant | Cardiology | Daljit Singletary, | Remote Device | | 2018 | Monitor | | [facility] | Interrogation | | | | | [place], | (Primary Dx); | | | | | [place] [address] | Presence of | | | | | [phone] | permanent cardiac | | | | [...]
--- OUTSIDE RECORDS SUMMARY | ~2019-11-01 | XMS | Encounter Summary ---
Demographics + + + | Address | [address] | | | [place] [address] | + + + | Home Phone [...] Team Providers + +------+ + | Care Soliciting Freight Agent Name | Role | Phone [...] [place] | | | | | | [address] | | | | | | [phone] | | | +--------+ + + + [...] | | | | | | [place], | | | | | | [place] [address] | | | | | | [phone] | | | | | | | | +--------+ + + + + | 11/20/ | Implant | Cardiology | Daljit Singletary, | Remote Device | | 2018 | Monitor | | [facility] | Interrogation | | | | | [place], | (Primary Dx); | | | | | [place] [address] | Presence of | | | | | [phone] | permanent cardiac | | | | [...]
--- OUTSIDE RECORDS SUMMARY | ~2019-11-01 | XMS | Encounter Summary ---
Demographics + + + | Address | [address] | | | [place] [address] | + + + | Home Phone [...] Providers + +------+ + | Care Clinical Quality Rn Name | Role | Phone | [...] | initial encounter; | | | | [place], [place] | | Elevated blood | | | | [address] | | pressure reading; | | | | [phone] | | Numbness and | | | [...] | | | | | | [place] [address] | | | | | | [phone] | | | | | | | | +--------+ + + + + | 11/20/ | Implant | Cardiology | Gemini Shaistakenneth, | Remote Device | | 2019 | Monitor | | MD [address] [facility] | Interrogation | | | | | [place], | (Primary Dx); | | | | | [place] [address] | Presence of | | | | | [phone] | permanent cardiac | | | | [...]
--- OUTSIDE RECORDS SUMMARY | ~2019-11-01 | XMS | Encounter Summary ---
Demographics + + + | Address | [address] | | | [place] [address] | + + + | Home Phone [...] + | 11/16/ | Hospital | [facility] | Kirk French | Aneurysm (HCC) | | 2017 | Encounter | MED CTR ULTRASOUND | D, MD [address] | | | | | [address] [place] | [address] | | | | | [place], [place] | [place] [address] | | | | | [address] | [phone] | | | | | [phone] | | | | | | | [...] + + + +---------+ + + | Carrie-3 Fatty | CAPS, one capsule by | [...] | | | | | | [place] [address] | | | | | | [phone] | | | | | | | | +--------+ + + + + | 11/20/ | Implant | Cardiology | Daljit Singletary, | Remote Device | | 2019 | Monitor | | [address] [facility] | Interrogation | | | | | [place], | (Primary Dx); | | | | | [place] [address] | Presence of | | | | | [phone] | permanent cardiac | | | | [...]
--- OUTSIDE RECORDS SUMMARY | ~2019-11-01 | XMS | Encounter Summary ---
Demographics + + + | Address | [address] | | | [place] [address] | + + + | Home Phone [...] Providers + +------+ + | Care Card Filer Name | Role | Phone | + +------+ + | Michael Amanda DO | PCP | | + +------+ + Encounter Details +--------+ + + + + | Date | Type | Department | Care Team | Description | +--------+ + + + + | 12/25/ | Hospital | [facility] | Daljit Singletary, | | | 2013 | Encounter | MED CTR XRAY [address] | | | | | [place] | [place], | | | | | [place] [address] | [place] [address] | | | | | [phone] | [phone] | | | | | | | [...] + + + +---------+ + + | Calabash-3 Fatty | CAPS, one capsule by | [...] | | | | | | [place] [address] | | | | | | [phone] | | | | | | | | +--------+ + + + + | 11/20/ | Implant | Cardiology | Anshujohnsoncherelle Shaistapawanotto, | Remote Device | | 2019 | Monitor | | [address] [facility] | Interrogation | | | | | [place], | (Primary Dx); | | | | | [place] [address] | Presence of | | | | | [phone] | permanent cardiac | | | | [...] Performed At | + + + | [facility] | [place] | | Department [address] [place] [address] | [facility] | | [ rep ct [address]] [ rep [facility] | | st zip] Signed | - IMAGING | | | | | Patient Name: MOE GAY | | | Physician: MIGUELINA : 1960 Age: 53 Sex: M Unit | | | #: [id number] Exam Date: 12/25/13 Location: | | | SDS SDS-D Report #: [id number] Page: | | | %(RAD)RES..mtdd.print.filter("pg") of %(RAD) | | | RES..mtdd.print.filter("tpg") | | | | | | Accession Number: [id number] | | | LEFT HEART CATHETERIZATION, 12/25/2013 [...] the patient was taken to the cardiac slabber. She | | | was prepared and draped in the usual fashion. Under sterile | | | technique and local anesthesia, percutaneous access was obtained | | | using #5 Beninese sheath in the right radial artery. Right heart cath | | | was not performed on this patient. Left ventriculography was | | | performed using #5 multipurpose diagnostic catheter. The selective | | | coronary angiography was then performed in several sagittal and | | | oblique projections using #5 multipurpose and #5 Beninese JL 3.5 | | | diagnostic catheters. [...] Transcribed | | | Date/Time: 12/25/2013 11:52 Revising Clerk: | | | <<Signature on File>> | | | Suwong | | | MD CLEOPATRA Singletary FASNanette12/25/13 1343 <Electronically signed by | | | Daljit Singletary MD, [facility], FAC, ADELINE, FASNC> Daljit | | | MD CLEOPATRA Singletary 12/25/13 1035 Revising Clerk: Dyson[employer]x | | | Mjqtiofjemrzw64/03/14 1152 | | + + + + + + + + | Performing | Address | City/State/Zipcode | Phone Number | | Organization | | | | + + + + + | [facility] | [address] | [place] | [phone] | | [facility] | | [address] | | | - IMAGING | | | | + + + + + documented in this encounter Visit Diagnoses Not on filedocumented in this encounter
--- OUTSIDE RECORDS SUMMARY | ~2019-11-01 | XMS | Encounter Summary ---
Demographics + + + | Address | [address] | | | [place] [address] | + + + | Home Phone [...] Team Providers + +------+ + | Care Grocery Clerk Marking Name | Role | Phone | + [...] 2017 | | CARDIOLOGY [address] | THERMOMETER TESTER [address] | | | | | [place], | [place], [place] | | | | | [place] [address] | [address] | | | | | [phone] | | | +--------+--------+ + + + [...] | | | | | | [place], | | | | | | [place] [address] | | | | | | [phone] | | | | | | | | +--------+ + + + + | 11/20/ | Implant | Cardiology | Daljit Singletary, | Remote Device | | 2018 | Monitor | | [address] | Interrogation | | | | | [place], | (Primary Dx); | | | | | [place] [address] | Presence of | | | | | [phone] | permanent cardiac | | | | [...]
--- OUTSIDE RECORDS SUMMARY | ~2019-11-01 | XMS | Encounter Summary ---
Demographics + + + | Address | [address] | | | [place] [address] | + + + | Home Phone [...] Providers + +------+ + | Care Electrician Helper Name | Role | Phone | [...] | 01/04/ | Telephone | [facility] | Emmanuel Daniel MD | Other | | 2019 | | GASTROENTEROLOGY | [address], [place] | | | | | [address] [place] | [address] [place], [place] | | | | | [address] [place], [place] | [address] | | | | | [address] | | | | | | [phone] | | | +--------+ + + + [...] | | | | | | [place] [address] | | | | | | [phone] | | | | | | | | +--------+ + + + + | 11/20/ | Implant | Cardiology | Daljit Singletary, | Remote Device | | 2018 | Monitor | | MD [address] [place] [address] | Interrogation | | | | | [address] [place], | (Primary Dx); | | | | | [place] [address] | Presence of | | | | | [phone] | permanent cardiac | | | | [...]
--- OUTSIDE RECORDS SUMMARY | ~2019-11-01 | XMS | Encounter Summary ---
Demographics + + + | Address | [address] | | | [place] [address] | + + + | Home Phone [...] Providers + +------+ + | Care Special Order Jeweler Name | Role | Phone | + [...] [address] | | | | | [address] | [place] | | | | | [phone] | [address] | | | | | | | [...] | | | | | | [place] [address] | | | | | | [phone] | | | | | | | | +--------+ + + + + | 11/20/ | Implant | Cardiology | Daljit Singletary, | Remote Device | | 2018 | Monitor | | MD Sim [facility] | Interrogation | | | | | [place], | (Primary Dx); | | | | | [place] [address] | Presence of | | | | | [phone] | permanent cardiac | | | | [...]
--- OUTSIDE RECORDS SUMMARY | ~2019-11-01 | XMS | Encounter Summary ---
Demographics + + + | Address | [address] | | | [place] [address] | + + + | Home Phone [...] Providers + +------+ + | Care Hospitality Ambassador Name | Role | Phone | + +------+ + PCP | Unavailable | + +------+ + Encounter Details +--------+ + + + + | Date | Type | Department | Care Team | Description | +--------+ + + + + | 06/13/ | [facility] | [facility] | Daljit Singletary, | | | 2008 | Encounter | MED CTR LABORATORY | [address] | | | | | [address] [place] | [address] [place], | | | | | [place] | [place] [address] | | | | | [address] | [phone] | | | | | [phone] | | | +--------+ + + + [...] W | | | | | | [place], | | | | | | [place] [address] | | | | | | [phone] | | | | | | | | +--------+ + + + + | 11/20/ | Implant | Cardiology | Daljit Singletary, | Remote Device | | 2019 | Monitor | | MD [address] | Interrogation | | | | | [place], | (Primary Dx); | | | | | [place] [address] | Presence of | | | | | [phone] | permanent cardiac | | | | [...]
--- OUTSIDE RECORDS SUMMARY | ~2019-11-01 | XMS | Encounter Summary ---
Demographics + + + | Address | [address] [place] [address] | | | [place] [address] | + + + | Home Phone [...] [place] | | | | | [address] | | + + + + + [...] | | Bradycardia | | | | [place], [place] | | | | | | [address] | | | | | | [phone] | | | +--------+------+ + + + [...] Way Lab) | [facility] | | [facility] [address] | REGIONAL | | [place] [address] | LABORATORY | + + + + + + + + | Performing | Address | City/State/Zipcode | Phone Number | | Organization | | | | + + + + + | [facility] | [address] | [place] [address] | | | LABORATORY | | | [...] ([address] [facility]) | | | [facility] [address] | | | [place] [address] | | + + + + + + + + | Performing | Address | City/State/Zipcode | Phone Number | | Organization | | | | + + + + + | [facility] | [address] | [place] [address] | | | LABORATORY | | | [...] | | | DEPARTMENT | | | [place] | | | OF | | | [...] DEPARTMENT OF | [address] | [place] [address] | | | PATHOLOGY | [address] | | | + + + + + documented in this encounter Visit Diagnoses + + | Diagnosis | + + | Chest pain Chest pain, unspecified | + + | Bradycardia Other specified cardiac dysrhythmias | + + documented in this encounter"
--- OUTSIDE RECORDS SUMMARY | ~2019-11-01 | XMS | Encounter Summary ---
Demographics + + + | Address | [address] | | | [place] [address] | + + + | Home Phone [...] Providers + +------+ + | Care Production Quality Analyst Name | Role | Phone | + +------+ + | Michael Amanda DO | PCP | | + +------+ + Encounter Details +--------+ + + + + | Date | Type | Department | Care Team | Description | +--------+ + + + + | 10/01/ | Hospital | [facility] | Mary Bradshaw | | | 2013 | Encounter | MED CTR JORDEN [place] | Guy Larkin MD | | | | | [address] [place] | [address] | | | | | [place], [place] | [place], [place] | | | | | [address] | [address] | | | | | [phone] | | | +--------+ + + + [...] + + + +---------+ + + | Edgar-3 Fatty | CAPS, one capsule by | [...] | | | | | | [place] [address] | | | | | | [phone] | | | | | | | | +--------+ + + + + | 11/20/ | Implant | Cardiology | Daljit Singletary, | Remote Device | | 2019 | Monitor | | [place] [facility] | Interrogation | | | | | [place], | (Primary Dx); | | | | | [place] [address] | Presence of | | | | | [phone] | permanent cardiac | | | | [...] + | MISCELLANEOUS LAB | | | [phone] | + +---------+ + + | MISCELANIOUS LAB | | | [phone] | + +---------+ + + documented in this encounter Visit Diagnoses Not on filedocumented in this encounter"
--- OUTSIDE RECORDS SUMMARY | ~2019-11-01 | XMS | Encounter Summary ---
Demographics + + + | Address | [address] | | | [place] [address] | + + + | Home Phone [...] Providers + +------+ + | Care Hand Embroiderer Name | Role | Phone | + [...] 2015 | | CARDIOLOGY [address] | LEAD PERFORMANCE SUPPORT ANALYST [address] | reprogramming/check | | | | [place], | [place], [place] | DO NOT DELETE | | | | [place] [address] | [address] | (Primary Dx); | | | | [phone] | | Pacemaker - | | | [...] W | | | | | | [place], | | | | | | [place] [address] | | | | | | [phone] | | | | | | | | +--------+ + + + + | 11/20/ | Implant | Cardiology | Daljit Singletary, | Remote Device | | 2018 | Monitor | | [address] | Interrogation | | | | | [place], | (Primary Dx); | | | | | [place] [address] | Presence of | | | | | [phone] | permanent cardiac | | | | [...] | | 2. Coronary artery disease involving naknek coronary artery of | | | naknek heart without angina pectoris I25.10 414.01 ECHO [...]
--- OUTSIDE RECORDS SUMMARY | ~2019-11-01 | XMS | Encounter Summary ---
Demographics + + + | Address | [address] | | | [place] [address] | + + + | Home Phone [...] + +------+ + | Care Clinical Quality Manager Name | Role | Phone | [...] 2012 | | Conversion Location | [address] | | | | | [phone] | [address] [place], | | | | | | [place] [address] | | | | | | [phone] | | | | | | | [...] | | | | | | [place] [address] | | | | | | [phone] | | | | | | | | +--------+ + + + + | 11/20/ | Implant | Cardiology | Daljit Singletary, | Remote Device | | 2019 | Monitor | | [address] [facility] | Interrogation | | | | | [address] [place], | (Primary Dx); | | | | | [place] [address] | Presence of | | | | | [phone] | permanent cardiac | | | | [...]
--- OUTSIDE RECORDS SUMMARY | ~2019-11-01 | XMS | Encounter Summary ---
Demographics + + + | Address | [address] | | | [place] [address] | + + + | Home Phone [...] Team Providers + +------+ + | Care Back Up Worker Name | Role | Phone | + +------+ + | Kirk French MD | PCP | | + +------+ + Encounter Details +--------+ + + + + | Date | Type | Department | Care Team | Description | +--------+ + + + + | 12/24/ | [facility] | [facility] | Emmanuel Daniel MD | Pain of upper | | 2018 | Encounter | MED CTR MP INTRA OP | [address], [place] | abdomen (Primary | | | | [address] | [address] [place], [place] | Dx); Functional | | | | [place], [place] | [address] | diarrhea; Weight | | | | [address] | | loss | | | | [phone] | | | +--------+ + + + [...] | | | | | | [place] [address] | | | | | | [phone] | | | | | | | | +--------+ + + + + | 11/20/ | Implant | Cardiology | Daljit Singletary, | Remote Device | | 2019 | Monitor | | [address] [facility] | Interrogation | | | | | [place], | (Primary Dx); | | | | | [place] [address] | Presence of | | | | | [phone] | permanent cardiac | | | | [...] + | Performed at: 01 - [facility] [place] [address], | REFERENCE LAB | | [place], [place] [id number] Insulation Hoseman: William Andrew MD, Phone: | ARSH CASTANON | | [phone] | | + + + + + + + + | Performing | Address | City/State/Zipcode | Phone Number | | Organization | | | | + + + + + | REFERENCE LAB | [address] | [place], [place] [address] | [phone] | | [place] - [place] | Drive [...] + | [facility] | [address] | [place] | [phone] | | [facility] | | [address] | | | - LABORATORY | | [...] [address] | [place] | [phone] | | [facility] | | [address] | | | - LABORATORY | | [...] + | [facility] | [address] | [place] | [phone] | | [facility] | | [address] | | | - LABORATORY | | [...] + + | Performed at: 01 - [facility] [address], | REFERENCE LAB | | [place], [place] [id number] Insulation Hoseman: William Andrew MD, Phone: | ARSH CASTANON | | [phone] | | + + + + + + + + | Performing | Address | City/State/Zipcode | Phone Number | | Organization | | | | + + + + + | REFERENCE LAB | [address] | [place] [address] | [phone] | | [place] - [place] | Drive [...] + | [facility] | [address] | [place] | [phone] | | [facility] | | [address] | | | - LABORATORY | | [...] ST. | [address] | [place], [place] | [phone] | | [facility] | | [address] | | | - LABORATORY | | [...] [address] | [place] | [phone] | | [facility] | | [address] | | | - LABORATORY | | [...] [address] | [place] | [phone] | | [facility] | | [address] | | | - LABORATORY | | [...] | [address] | [place] | [phone] | | [facility] | | [address] | | | - LABORATORY | | | | + + + + + EGD (12/24/2017 1:19 PM PST) + + | Specimen | + + | | + + + + -+ | Narrative | Performed At | + + -+ | | [facility] | | GastroenterologyPatient Name: Moe Venegas Date: 12/24/2017 | [facility]OVATION | | 1:19 PMMRN: [id number] #: [id number] of : | | | 9Admit Type: AmbulatoryAge: 57Room: [facility] 01Gender: MaleNote | | | Status: FinalizedAttending MD: Emmanuel Daniel , [facility]cedure: | | | Upper GI endoscopyIndications: Diarrhea, Weight | | | lossProviders: Emmanuel Daniel MD, Maria Isabel Morris RN, | | | Kim Hicks, Coding Technician, Jarett | | | Sapna Barakat MD [...] the anesthesiologist and | | | the sales technician in the endoscopy suite. Mental Status [...] PMScope Out: 1:31:13 PM | | | [facility], [address] [facility] | | | [place] [address] | | | - Discharge patient to [...] Out: 1:31:13 PM | | | [facility], [address] [facility], [place], [place] | | | [address] | | + + -+ + +---------+ [...] 12/24/2017 | [facility]ATION | | 1:17 PMMRN: [id number] #: [id number] of : | | | 9Admit Type: AmbulatoryAge: 57Room: [facility] 01Gender: MaleNote | | | Status: FinalizedAttending MD: Emmanuel Daniel , [facility]cedure: | | | ColonoscopyIndications: Clinically significant diarrhea of | | | unexplained originProviders: Emmanuel Daniel MD, Maria Isabel | | | Arturo RN, Kim Hicks, Coding Technician, | | | Jarett Barakat MD (Anesthesia [...] | | | the anesthesiologist and the sales technician in the endoscopy suite. | | [...] In: 1:32:55 PMScope Out: 1:48:57 PM [facility] | | | [facility], [address] [place] [address] | | | [phone] | | | - Await pathology results. [...] |Scope Out: 1:48:57 PM | | | [facility], [address] [place] [address] | | | [address] | | + + -+ + +---------+ [...] | colonic mucosa with focal adenomatous change. CLR:[facility]:C2NR | | | GROSS DESCRIPTION: [...] | | cm, submitted, all in (D1). ka:CLR:[facility] ADDITIONAL NOTES: | | | Immunohistochemical studies were performed on this case with the | | | appropriate positive controls that react as expected. This test was | | | developed and its performance characteristics determined by [employer] | | | [facility]. It has not been cleared or approved by the U.S. Food | | | and Drug Administration. The FDA has determined that such clearance | | | or approval is not necessary. This test is used for clinical | | | purposes. It should not be regarded as investigational or for | | | research. [employer] is certified under the Clinical | | | Laboratory Improvement Amendments of 1988 (CLIA) as qualified to | | | perform high complexity clinical laboratory testing. This assay | | | has not been validated for specimens that have been decalcified. | | | PERFORMING LABORATORY: Tissue processing and slide preparation were | | | performed by [employer], [facility] ., [facility] | | | [place] [address] (Track Repair Laborer: vEan Frausto M.D. CLIA#: | | | [id number]). Professional interpretation was performed by [employer] | | | [employer], [facility] [employer] ., [address], [place] [address] | | | (Track Repair Laborer: Evan Frausto M.D.; CLIA#: [id number]). | | | Diagnostician: Rafael Bales MD [...]
--- OUTSIDE RECORDS SUMMARY | ~2019-11-01 | XMS | Encounter Summary ---
Demographics + + + | Address | [address] | | | [place] [address] | + + + | Home Phone [...] | | | | CENTER [address] | [place] | (Primary Dx) | | 07/28/ | | [place] | [address] | | | 2017 | | [address] | | | | | | [phone] | | | +--------+ + + + [...] sent through Care Everywhere.Chest Pain, Non cardiac (Greek)documented in this encounter Medications at Time of [...] + + + +---------+ + + | [place]-3 Fatty | CAPS, one capsule by | [...] | | | | | | [place] [address] | | | | | | [phone] | | | | | | | | +--------+ + + + + | 11/20/ | Implant | Cardiology | Daljit Singletary, | Remote Device | | 2018 | Monitor | | MD [address] | Interrogation | | | | | [place], | (Primary Dx); | | | | | [place] [address] | Presence of | | | | | [phone] | permanent cardiac | | | | [...] W?MRN: | | | | | | [id number] | | | [id number] | | | his | | | [...] | | | ent/60 | | | [id number] | | | -5586- | | | [...] | | | ext. | | | 64[address] | | | or go | | [...] | | | M.D. | | | Joint Setter | | | al | | | [...] | | | | | | [employer] | | | | | [...] + | [facility] | [address] | [place] | [phone] | | [facility] | | [address] | | | - LABORATORY | | [...] | | | FILTRATION | mL/min/1.73m2 | [facility] | | | [place] | RATE,ESTIMATED | | MEDICAL | | | | mL/min/1.27k0Euey than | | CENTER - | | [...] | | | | | mg/dL | [facility] | | | | [...] [address] | [place] | [phone] | | [facility] | | [address] | | | - LABORATORY | | [...] + | [facility] | [address] | [place] | [phone] | | [facility] | | [address] | | | - LABORATORY | | [...] | | | | ANGELA MARADIAGA MD ([id number]) | | | | | | on [...]
--- OUTSIDE RECORDS SUMMARY | ~2019-11-01 | XMS | Encounter Summary ---
Demographics + + + | Address | [address] [place] [address] | | | [place] [address] | + + + | Home Phone [...] [place] | | | | | [address] | | + + + + + Care Team Providers + +------+ + | Care Tin Recovery Worker Name | Role | Phone | [...] | | 2019 | | Center at [facility] [address] | [address] | | | | | [address] | [place], [place] | | | | | Mailcode: [place] | [address] | | | | | [facility] and | [phone] | | | | | [place] [address] | | | | | | [place], [place] | | | | | | [address] | | | | | | [phone] | | | +--------+ + + + [...]
--- OUTSIDE RECORDS SUMMARY | ~2019-11-01 | XMS | Encounter Summary ---
Demographics + + + | Address | [address] | | | [place] [address] | + + + | Home Phone [...] + +------+ + | Care Manager Credit Collections Name | Role | Phone | + [...] 2018 | | GASTROENTEROLOGY | [address], [place] | about prep for | | | | [address] [place] | [address] [place], [place] | procedure) | | | | [address] [place], [place] | [address] | | | | | [address] | | | | | | [phone] | | | +--------+ + + + [...] | | | | | | [place] [address] | | | | | | [phone] | | | | | | | | +--------+ + + + + | 11/20/ | Implant | Cardiology | Daljit Singletary, | Remote Device | | 2019 | Monitor | | MD [address] | Interrogation | | | | | [place], | (Primary Dx); | | | | | [place] [address] | Presence of | | | | | [phone] | permanent cardiac | | | | [...]
--- OUTSIDE RECORDS SUMMARY | ~2019-11-01 | XMS | Encounter Summary ---
Demographics + + + | Address | [address] | | | [place] [address] | + + + | Home Phone [...] Providers + +------+ + | Care Social Worker Masters Name | Role | Phone | + [...] | aortic aneurysm | | | | [place], | [place], | ([facility]) (Primary Dx); | | | | [place] [address] | [place] [address] | Syncope, unspecified | | | | [phone] | [phone] | syncope type; | | | | | | Hypertension, | | | | | | unspecified type; | | | | | | Coronary artery | | | | | | disease involving | | | | | | false pass coronary | | | | | | artery of false pass | | | | | | heart [...] of non-critical coronary artery d isease involving false pass coronary artery of false pass heart without angina pectoris, essential h ypertension, [...] Preventative health care Coronary artery disease involving false pass coronary artery of false pass heart without angina pectoris Cannabis abuse, daily [...] by mouth Daily. 90 tabl et 1 [facility] [place] [place] [...] 3RD DOSE, CALL 911 100 tablet 3 [place]-3 Fatty Acids (SALMON OIL-1000 PO) CAPS, one [...] now present Confirmed by HIREN WINKLER, ANGELA ([id number]) on 07/28/2018 6:03:35 AM LAB RESULTS reviewed during visit today primarily from [facility]: LIPID Lab Results Component Value [...] PLTEX 157 04/11/2018 I reviewed records from [facility] for emergency department visit o [...] to go back in 3 days to [place] for an attempt of ablation under general [...] He is in class II of the [place] Heart [employer] f unctional class. There are [...] subsided. 2. Non-critical Coronary artery disease involving false pass coronary artery of false pass heart [facility] angina pectoris: A. Normal exercise sestamibi [...] cannot completely be ruled out . D. [facility] 12/25/13, shows non critical coronary artery disease, [...] this chart may have been created with [employer] voice recognition software. Occasi onal wrong-word or [...] W | | | | | | [place], | | | | | | [place] [address] | | | | | | [phone] | | | | | | | | +--------+ + + + + | 11/20/ | Implant | Cardiology | Daljit Singletary, | Remote Device | | 2018 | Monitor | | [address] [place] | Interrogation | | | | | [place], | (Primary Dx); | | | | | [place] [address] | Presence of | | | | | [phone] | permanent cardiac | | | | [...] + + | Coronary artery disease involving false pass coronary artery of false pass heart without | | angina pectoris | [...]
--- OUTSIDE RECORDS SUMMARY | ~2019-11-01 | XMS | Encounter Summary ---
Demographics + + + | Address | [address] | | | [place] [address] | + + + | Home Phone [...] Providers + +------+ + | Care Railroad Repairer Name | Role | Phone | [...] + + | 06/26/ | Office | [facility] | Geri Angel, | Coronary artery | | 2015 | Visit | CARDIOLOGY [address] | .NET ARCHITECT [address] | disease involving | | | | [place], | [place] [facility] [place] | [place] coronary | | | | [place] [address] | [address] | artery without | | | | [phone] | | angina pectoris | | | [...] not occur with exertion. He went to [facility] at the end of for his symptoms [...] it. He is planning to travel to [facility] in the ve ry near future for up to a month due to his utiehz-jv-sup having a significant stroke there MEDICAL, SURGICAL, [...] Preventative health care Coronary artery disease involving [place] coronary artery without angina pectoris Cannabis abuse, [...] mouth Daily. 30 tabl et 6 [facility] [employer] [...] 3rd dose, call 911 25 tablet 11 [place]-3 Fatty Acids (SALMON OIL-1000 PO) CAPS, one [...] Daily. 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 Leads: Right atrium and right ventricle (dual [...] ventricular arrhythmia performed by Dr. Gambino at [facility] on 01/30/2013. Patient had spontaneous PVCs [...] to go back in 3 days to [place] for an attempt of ablation under [...] this chart may have been created with [employer] voice recognition software. Occasi onal wrong-word or [...] | | | | | | [place], | | | | | | [place] [id number] | | | | | | [phone] | | | | | | | | +--------+ + + + + | 11/20/ | Implant | Cardiology | Daljit Singletary, | Remote Device | | 2019 | Monitor | | [address] [facility] | Interrogation | | | | | 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 Leads: Right atrium and right | | [...] + + | Coronary artery disease involving [place] coronary artery without angina pectoris - | | Primary | + + | SINUS BRADYCARDIA Sinoatrial node dysfunction | + + | Essential hypertension Unspecified essential hypertension | + + | Hyperlipidemia Other and unspecified hyperlipidemia | + + | Symptomatic PVCs Other premature beats | + + documented in this encounter
--- OUTSIDE RECORDS SUMMARY | ~2019-11-01 | XMS | Encounter Summary ---
Demographics + + + | Address | [address] | | | [place] [address] | + + + | Home Phone [...] Team Providers + +------+ + | Care Clockmaker Apprentice Name | Role | Phone | [...] + + | 08/29/ | Office | [facility] | Silvia, | Essential | | 2015 | Visit | CARDIOLOGY [address] | PARISA [place] [address] | hypertension | | | | [place], | [place], | (Primary Dx); | | | | [place] [address] | [place] [address] | Coronary artery | | | | [phone] | [phone] | disease involving | | | | | | nome coronary | | | | | | [...] was seen in the emergency room at [facility] on 08/23/20 15 and the ER physician reviewed his chart saying that there were 2 ultrasounds from [facility] both of them are clear of DVT but reveal some venous insufficiency. Today, arian ent tells me that he started having swelling in both his feet within a week when he got to [facility]. He had extensive traveling. He went [...] Preventative health care Coronary artery disease involving nome coronary artery without angina pectoris Cannabis abuse, [...] by mouth every evening. 90 tablet 3 [facility] [...] 3rd dose, call 911 100 tablet 3 [place]-3 Fatty Acids (SALMON OIL-1000 PO) CAPS, one [...] Daily. to reduce urinary frequenc y Lot #[id number], exp 07/2016 (Patient taking differently: Take 8 mg by mouth Daily. PATIENT STA YOSELIN NO LONGER TAKING THIS MEDICATION. STATED ON 08/29/2015. to reduce urinary frequency Lot #[id number], exp 07/2016) 21 capsule 0 Specialty Vitamins [...] PLTEX 163 07/26/2014 I reviewed records from [facility] for emergency department visit o [...] brought reports to the emergency room at [facility] and according to the not es they [...] to go back in 3 days to [place] for an attempt of ablation under general [...] dizziness. He is in class I-II of [place] Heart 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 T here are [...] this chart may have been created with [employer] voice recognition software. Occasi onal wrong-word or [...] W | | | | | | [place], | | | | | | [place] [address] | | | | | | [phone] | | | | | | | | +--------+ + + + + | 11/20/ | Implant | Cardiology | Sydni Singletary, | Remote Device | | 2019 | Monitor | | [address] [place] | Interrogation | | | | | [place], | (Primary Dx); | | | | | [place] [address] | Presence of | | | | | [phone] | permanent cardiac | | | | [...] the | | | | PDT | nome coronary | results section. | | | [...] DVT. COMPARISON: None. TECHNIQUE: Compression | [facility] | | sonography was performed from the groin through the popliteal fossa | [facility] | | in both lower extremities.. [...] conveyed to the ordering provider, by the floral assistant, | | | immediately following the exam. [...] to the ordering provider, by the | |floral assistant, immediately following the exam. | | | [...] | [address] | [place] | [phone] | | [facility] | | [address] | | | - IMAGING | | [...] MD | | | | | | ([id number]) on 08/29/2015 | | | | | [...] + + | Coronary artery disease involving nome coronary artery without angina pectoris | + + | DVT (deep venous thrombosis), bilateral | + + documented in this encounter
--- OUTSIDE RECORDS SUMMARY | ~2019-11-01 | XMS | Encounter Summary ---
Demographics + + + | Address | [address] | | | [place] [address] | + + + | Home Phone [...] + + | 08/17/ | Office | [facility] | Michael Amanda, | Testosterone | | 2012 | Visit | [facility] [place] | DO [address] | deficiency (Primary | | | | [address] | [place] | Dx); Hypoglycemia; | | | | [place] | [address] | Herpes | | | | [address] | | | | | | [phone] | | | +--------+---------+ + + + [...] lowering his testosterone levels. He seen at [facility]. He was prescribed OxyContin and Dilaudid. [...] erectile dy sfunction. He was seen at [facility] yesterday and they prescribed him testostero ne cypionate injections. He's not sure when they wanted him to come back for labs. He has a followup appointment with [facility] in one month. Patient complains of [...] HTN (hypertension); Hypercholesterolemia; Bipolar 1 disorder; Insomnia; Photogeologist jennifer neck pain; Depression; Hyperlipidemia; BIPOLAR DISORDER [...] canCaffeine:NoneLiving situation: live s at home with Andriea in own home Review of Systems Pertinent [...] per orders. This note is dictated using [email or web address] voice recognition software. This note was dictated [...] [place], | | | | | | [place] [address] | | | | | | [phone] | | | | | | | | +--------+ + + + + | 11/20/ | Implant | Cardiology | Daljit Singletary, | Remote Device | | 2018 | Monitor | | MD [address] | Interrogation | | | | | [place], | (Primary Dx); | | | | | [place] [address] | Presence of | | | | | [phone] | permanent cardiac | | | | [...]
--- OUTSIDE RECORDS SUMMARY | ~2019-11-01 | XMS | Encounter Summary ---
Demographics + + + | Address | [address] | | | [place] [address] | + + + | Home Phone [...] Providers + +------+ + | Care Tractor Operator Helper Name | Role | Phone [...] | [address] [place] | [place] [address] | | | | | [address] | [phone] | | | | | [phone] | | | +--------+ + + + [...] | | | | | | [place] [address] | | | | | | [phone] | | | | | | | | +--------+ + + + + | 11/20/ | Implant | Cardiology | Daljit Singletary, | Remote Device | | 2018 | Monitor | | MD [address]iqu[address] [place] | Interrogation | | | | | [place], | (Primary Dx); | | | | | [place] [address] | Presence of | | | | | [phone] | permanent cardiac | | | | [...]
--- OUTSIDE RECORDS SUMMARY | ~2019-11-01 | XMS | Encounter Summary ---
Demographics + + + | Address | [address] | | | [place] [address] | + + + | Home Phone [...] Team Providers + +------+ + | Care Access Nurse Name | Role | Phone | [...] | | CARDIOLOGY [address] | Janeen, INFORMATICS NURSE SPECIALIST [address] | Clearance) | | | | [place], | [place], | | | | | [place] [address] | [place] [address] | | | | | [phone] | [phone] | | | | | | | [...] | | | | | | [place] [address] | | | | | | [phone] | | | | | | | | +--------+ + + + + | 11/20/ | Implant | Cardiology | Daljit Singletary, | Remote Device | | 2018 | Monitor | | [address] [place] | Interrogation | | | | | [place], | (Primary Dx); | | | | | [place] [address] | Presence of | | | | | [phone] | permanent cardiac | | | | [...]
--- OUTSIDE RECORDS SUMMARY | ~2019-11-01 | XMS | Encounter Summary ---
Demographics + + + | Address | [address] | | | [place] [address] | + + + | Home Phone [...] Providers + +------+ + | Care Tow Operator Name | Role | Phone | [...] CARDIOLOGY [address] | MD [address] | Interrogation | | | | [place], | [place], | (Primary Dx); | | | | [place] [address] | [place] [address] | Pacemaker; | | | | [phone] | [phone] | Sinoatrial node | | | | [...] | | | | | | [place] [address] | | | | | | [phone] | | | | | | | | +--------+ + + + + | 11/20/ | Implant | Cardiology | Daljit Singletary, | Remote Device | | 2019 | Monitor | | MD [address] [facility] | Interrogation | | | | | [place], | (Primary Dx); | | | | | [place] [address] | Presence of | | | | | [phone] | permanent cardiac | | | | [...] remote PDF scanned into | | | [facility] for remote interrogation results. Data collected [...]
--- OUTSIDE RECORDS SUMMARY | ~2019-11-01 | XMS | Encounter Summary ---
Demographics + + + | Address | [address] | | | [place] [address] | + + + | Home Phone [...] Providers + +------+ + | Care Yard Supervisor Name | Role | Phone | [...] + + | 08/29/ | [facility] | [facility] | Silvia, | Essential | | 2015 | Visit | CARDIOLOGY [address] | [address] [place] [address] | hypertension | | | | [place], | [place], | (Primary Dx); | | | | [place] [address] | [place] [address] | Coronary artery | | | | [phone] | [phone] | disease involving | | | | | | [place] coronary | | | | | [...] was seen in the emergency room at [facility] on 08/23/20 15 and the ER physician reviewed his chart saying that there were 2 ultrasounds from [facility] both of them are clear of DVT but reveal some venous insufficiency. Today, arian ent tells me that he started having swelling in both his feet within a week when he got to [facility]. He had extensive traveling. He went [...] Preventative health care Coronary artery disease involving [place] coronary artery without angina pectoris Cannabis [...] by mouth every evening. 90 tablet 3 [facility] [...] 3rd dose, call 911 100 tablet 3 [place]-3 Fatty Acids (SALMON OIL-1000 PO) CAPS, one [...] Daily. to reduce urinary frequenc y Lot #[id number], exp 07/2016 (Patient taking differently: Take 8 mg by mouth Daily. PATIENT STA YOSELIN NO LONGER TAKING THIS MEDICATION. STATED ON 08/29/2015. to reduce urinary frequency Lot #[id number], exp 07/2016) 21 capsule 0 Specialty Vitamins [...] PLTEX 163 07/26/2014 [facility] [...] brought reports to the emergency room at [facility] and according to the not es [...] dizziness. He is in class I-II of [place] 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 T here are [...] this chart may have been created with [employer] voice recognition software. Occasi onal wrong-word or [...] | | | | | | [place], | | | | | | [place] [address] | | | | | | [phone] | | | | | | | | +--------+ + + + + | 11/20/ | Implant | Cardiology | Sydni Singletary, | Remote Device | | 2019 | Monitor | | [address] [place] | Interrogation | | | | | [place], | (Primary Dx); | | | | | [place] [address] | Presence of | | | | | [phone] | permanent cardiac | | | | [...] the | | | | PDT | [place] coronary | results section. | | | [...] HISTORY: DVT. COMPARISON: None. TECHNIQUE: Compression | [facility] | | sonography was performed from the groin through the popliteal fossa | [facility] | | in both lower extremities.. Grayscale [...] conveyed to the ordering provider, by the medical lab technologist, | | | immediately following the exam. [...] to the ordering provider, by the | |medical lab technologist, immediately following the exam. | | | [...] | [address] | [place] | [phone] | | [facility] | | [address] | | | - IMAGING | | [...] MD | | | | | | ([id number]) on 08/29/2015 | | | | | [...] + + | Coronary artery disease involving [place] coronary artery without angina pectoris | + + | DVT (deep venous thrombosis), bilateral | + + documented in this encounter
--- OUTSIDE RECORDS SUMMARY | ~2019-11-01 | XMS | Encounter Summary ---
Demographics + + + | Address | [address] | | | [place] [address] | + + + | Home Phone [...] [facility] | Daljit Singletary, | Other (question | | 2015 | | CARDIOLOGY [address] | [address] [place] | about diet | | | | [place], | [place], | medication) | | | | [place] [address] | [place] [address] | | | | | [phone] | [phone] | | | | | | | [...] W | | | | | | [place], | | | | | | [place] [address] | | | | | | [phone] | | | | | | | | +--------+ + + + + | 11/20/ | Implant | Cardiology | Daljit Singletary, | Remote Device | | 2018 | Monitor | | MD [address] [place] | Interrogation | | | | | [place], | (Primary Dx); | | | | | [place] [address] | Presence of | | | | | [phone] | permanent cardiac | | | | [...]
--- OUTSIDE RECORDS SUMMARY | ~2019-11-01 | XMS | Clinical Summary ---
Demographics + + + | Address | [address] [place] [address] | | | [place] [address] | + + + | Home Phone [...] [place] | | | | | [address] | | + + + + + Care Team Providers + +------+ + | Care Outside Cutter Hand Name | Role | Phone | + +------+ + | Darion Holden DO | PCP | | + +------+ + Source Comments IVETTE is fully live on both EpicCare Ambulatory and EpicCare InPatient.[facility] Allergies + + + + + + [...] 09/28/ | Office | Gastroenterology | Bridgette Rois, | Chronic diarrhea | | 2018 | [...] | | | | | | | [address] | | + +--------+ +--------+ + +--------+ | [employer] | AARP | [phone] | 11/22/19 | [phone] | [address] | Indemn | | RETIRED PEOPLE | | | 10-Pre | 9 | [phone] | ity | | | | | sent | | [place] | | | | | | | | [address] | | + +--------+ +--------+ + +--------+ + +--------+ +--------+ + + | Guarantor Name | Accoun | Relation to | Date | Phone | Billing Address | | | t Type | Patient | of | | | | | | | | | | + +--------+ +--------+ + + | Moe Sanchez | Person | Self | [birth year] | [address] | | | al/Per | | 1959 | [phone] | [place] | | | roxanne | | | 8 (Home) | [address] | + +--------+ +--------+ + + Advance Directives + + + + + | Type | Date Recorded | Patient | Explanation | | | | Pattern Filer | | + + + + + | Advance | | | | | Directives and | | | | | Living Will | | | | + + + + + | Power of | | | | | Medication Aid | | | | + + + + +
--- OUTSIDE RECORDS SUMMARY | ~2019-11-01 | XMS | Encounter Summary ---
Demographics + + + | Address | [address] | | | [place] [address] | + + + | Home Phone [...] Providers + +------+ + | Care Rn Medicare Name | Role | Phone | [...] | SR | | | | | [phone] | | | +--------+ + + + [...] | | | | | | [place] [address] | | | | | | [phone] | | | | | | | | +--------+ + + + + | 11/20/ | Implant | Cardiology | Daljit Singletary, | Remote Device | | 2019 | Monitor | | [place] [address] [facility] | Interrogation | | | | | [place], | (Primary Dx); | | | | | [place] [address] | Presence of | | | | | [phone] | permanent cardiac | | | | [...]
--- OUTSIDE RECORDS SUMMARY | ~2019-11-01 | XMS | Encounter Summary ---
Demographics + + + | Address | [address] | | | [place] [address] | + + + | Home Phone [...] Team Providers + +------+ + | Care Winding Machine Operator Name | Role | Phone [...] | 03/02/ | Telephone | [facility] | Daljit Singletary, | Other | | 2013 | | CARDIOLOGY [address] | MD [address] [place] | | | | | [place], | [place], | | | | | [place] [address] | [place] [address] | | | | | [phone] | [phone] | | | | | | | [...] | | | | | | [place], | | | | | | [place] [address] | | | | | | [phone] | | | | | | | | +--------+ + + + + | 11/20/ | Implant | Cardiology | Daljit Singletary, | Remote Device | | 2018 | Monitor | | MD [address] | Interrogation | | | | | [place], | (Primary Dx); | | | | | [place] [address] | Presence of | | | | | [phone] | permanent cardiac | | | | [...]
--- OUTSIDE RECORDS SUMMARY | ~2019-11-01 | XMS | Encounter Summary ---
Demographics + + + | Address | [address] | | | [place] [address] | + + + | Home Phone [...] Providers + +------+ + | Care Mine Deputy Name | Role | Phone | + +------+ + | Kirk French MD | PCP | | + +------+ + Encounter Details +--------+ + + + + | Date | Type | Department | Care Team | Description | +--------+ + + + + | 10/25/ | Hospital | [facility] | Kirk French | Aneurysm (HCC) | | 2017 | Encounter | MED CTR ULTRASOUND | D, MD [address] | | | | | [address] [place] | [address] | | | | | [place], [place] | [place] [address] | | | | | [address] | [phone] | | | | | [phone] | | | | | | | [...] + + + +---------+ + + | [place]-3 Fatty | CAPS, one capsule by [...] | | | | | | [place] [address] | | | | | | [phone] | | | | | | | | +--------+ + + + + | 11/20/ | Implant | Cardiology | Daljit Singletary, | Remote Device | | 2019 | Monitor | | [address] [facility] | Interrogation | | | | | [place], | (Primary Dx); | | | | | [place] [address] | Presence of | | | | | [phone] | permanent cardiac | | | | [...]
--- OUTSIDE RECORDS SUMMARY | ~2019-11-01 | XMS | Encounter Summary ---
Demographics + + + | Address | [address] | | | [place] [address] | + + + | Home Phone [...] Team Providers + +------+ + | Care Maritime Pilot Name | Role | Phone | [...] 2012 | | CARDIOLOGY [address] | LAB SUPPORT TECH [address] | | | | | [place], | [place], [place] | | | | | [place] [address] | [address] | | | | | [phone] | | | +--------+ + + + [...] | | | | | | [place] [address] | | | | | | [phone] | | | | | | | | +--------+ + + + + | 11/20/ | Implant | Cardiology | Daljit Singletary, | Remote Device | | 2019 | Monitor | | MD [address] [facility] | Interrogation | | | | | [place], | (Primary Dx); | | | | | [place] [address] | Presence of | | | | | [phone] | permanent cardiac | | | | [...] + | [address] | [address] | [place], [place] | | | [facility] | | [address] | | | - LABORATORY | | [...] | | | LAB | | | Israeli, | | | | | | External [...]
--- OUTSIDE RECORDS SUMMARY | ~2019-11-01 | XMS | Encounter Summary ---
Demographics + + + | Address | [address] | | | [place] [address] | + + + | Home Phone [...] Team Providers + +------+ + | Care Dance Costume Designer Name | Role | Phone | [...] [place] | | | | | | [address] | | | | | | [phone] | | | +--------+ + + + [...] | | | | | | [place] [address] | | | | | | [phone] | | | | | | | | +--------+ + + + + | 11/20/ | Implant | Cardiology | Daljit Singletary, | Remote Device | | 2018 | Monitor | | [address] [facility] | Interrogation | | | | | [place], | (Primary Dx); | | | | | [place] [address] | Presence of | | | | | [phone] | permanent cardiac | | | | [...]
--- OUTSIDE RECORDS SUMMARY | ~2019-11-01 | XMS | Encounter Summary ---
Demographics + + + | Address | [address] | | | [place] [address] | + + + | Home Phone [...] Providers + +------+ + | Care Form Drafter Name | Role | Phone | [...] | | | | CENTER [address] | [address] | (Primary Dx) | | | | [place], [place] | [place], [place] | | | | | [address] | [address] | | | | | [phone] | | | +--------+ + + + [...] + + + +---------+ + + | [place]-3 Fatty | CAPS, one capsule by | [...] | | | | | | [place], | | | | | | [place] [address] | | | | | | [phone] | | | | | | | | +--------+ + + + + | 11/20/ | Implant | Cardiology | Sydni Singletary, | Remote Device | | 2019 | Monitor | | [address] [place] | Interrogation | | | | | [place], | (Primary Dx); | | | | | [place] [address] | Presence of | | | | | [phone] | permanent cardiac | | | | [...] W?MRN: | | | | | | [id number] | | | [id number] | | | his | | | [...] | | | ent/60 | | | [id number] | | | -5586- | | | [...] | | | St. | | | [place] | | | y | | | [...] | | | ext. | | | [address] | | | or go | | [...] | | | M.D. | | | Leather Toggler | | | al | | | [...] | | | | | | [employer] | | | | | [...] ST. | [address] | [place] | [phone] | | [facility] | | [address] | | | - LABORATORY | | [...] [address] | [place] | [phone] | | [facility] | | [address] | | | - LABORATORY | | [...] [address] | [place] | [phone] | | [facility] | | [address] | | | - LABORATORY | | [...] mL/min/1.73m2 | . APOLONIA | | | IVORIAN | RATE,ESTIMATED | | MEDICAL | | | | mL/min/1.66w7Xrvv than | | CENTER - | | [...] ST. | [address] | [place] | [phone] | | [facility] | | [address] | | | - LABORATORY | | [...] ST. | [address] | [place], [place] | [phone] | | [facility] | | [address] | | | - LABORATORY | | [...] + | [facility] | [address] | [place] | [phone] | | [facility] | | [address] | | | - LABORATORY | | [...] SYDNI | | | | | | ([id number]) on 06/22/2018 | | | | | [...]
--- OUTSIDE RECORDS SUMMARY | ~2019-11-01 | XMS | Encounter Summary ---
Demographics + + + | Address | [address] | | | [place] [address] | + + + | Home Phone [...] + +------+ + | Care Senior Software Development Engineer Name | Role | [...] [address] | | | | | | [place], [place] | (Fax) | | | | | [address] | | | | | | [phone] | | | +--------+ + + + [...] | | | | | | [place] [address] | | | | | | [phone] | | | | | | | | +--------+ + + + + | 11/20/ | Implant | Cardiology | Daljit Singletary, | Remote Device | | 2018 | Monitor | | [address] [facility] | Interrogation | | | | | [place], | (Primary Dx); | | | | | [place] [address] | Presence of | | | | | [phone] | permanent cardiac | | | | [...]
--- OUTSIDE RECORDS SUMMARY | ~2019-11-01 | XMS | Encounter Summary ---
Demographics + + + | Address | [address] | | | [place] [address] | + + + | Home Phone [...] Team Providers + +------+ + | Care Cushion Worker Name | Role | Phone | [...] + | 06/02/ | Telephone | [facility] | Daljit Singletary, | Other (symptoms) | | 2019 | | CARDIOLOGY [address] | MD [address] [place] | | | | | [place], | [place], | | | | | [place] [address] | [place] [address] | | | | | [phone] | [phone] | | | | | | | [...] W | | | | | | [place], | | | | | | [place] [address] | | | | | | [phone] | | | | | | | | +--------+ + + + + | 11/20/ | Implant | Cardiology | Daljit Singletary, | Remote Device | | 2019 | Monitor | | MD [address] | Interrogation | | | | | [place], | (Primary Dx); | | | | | [place] [address] | Presence of | | | | | [phone] | permanent cardiac | | | | [...]
--- OUTSIDE RECORDS SUMMARY | ~2019-11-01 | XMS | Encounter Summary ---
Demographics + + + | Address | [address] | | | [place] [address] | + + + | Home Phone [...] Providers + +------+ + | Care Vp Account Director Name | Role | Phone | [...] + + | 08/31/ | Refill | [facility] | Kirk French | Medication Refill | | 2018 | | [facility] | MD Brea [address] | | | | | PRIMARY CARE [address] | [address] | | | | | [address] | [place] [address] | | | | | [place], [place] | [phone] | | | | | [address] | | | | | | [phone] | | | +--------+--------+ + + + [...] | | | | | | [place] [address] | | | | | | [phone] | | | | | | | | +--------+ + + + + | 11/20/ | Implant | Cardiology | Daljit Singletary, | Remote Device | | 2018 | Monitor | | MD [address] | Interrogation | | | | | [place], | (Primary Dx); | | | | | [place] [address] | Presence of | | | | | [phone] | permanent cardiac | | | | [...]
--- OUTSIDE RECORDS SUMMARY | ~2019-11-01 | XMS | Encounter Summary ---
Demographics + + + | Address | [address] | | | [place] [address] | + + + | Home Phone [...] Team Providers + +------+ + | Care Loose Hand Packer Name | Role | Phone | + +------+ + | Kirk French MD | PCP | | + +------+ + Encounter Details +--------+ + + + + | Date | Type | Department | Care Team | Description | +--------+ + + + + | 08/29/ | Hospital | [facility] | [place] | DVT (deep venous | | 2015 | Encounter | MED CTR ULTRASOUND | PARISA [place] [address] | thrombosis), | | | | [address] [place] | [place], | bilateral (HCC) | | | | [place], [place] | [place] [address] | | | | | [address] | [phone] | | | | | [phone] | | | +--------+ + + + [...] + + + +---------+ + + | [place]-3 Fatty | CAPS, one capsule by | [...] | | | | | | | #[id number], exp 07/2016 | | | | | [...] | | | | | | [place] [address] | | | | | | [phone] | | | | | | | | +--------+ + + + + | 11/20/ | Implant | Cardiology | Daljit Singletary, | Remote Device | | 2018 | Monitor | | MD [address] [place] [address] | Interrogation | | | | | [place], | (Primary Dx); | | | | | [place] [address] | Presence of | | | | | [phone] | permanent cardiac | | | | [...] through the popliteal fossa | [facility] | | in both lower extremities.. [...] conveyed to the ordering provider, by the professional nursing tutor, | | | immediately following the exam. [...] to the ordering provider, by the | |professional nursing tutor, immediately following the exam. | | | [...] [address] | [place] | [phone] | | [facility] | | [address] | | | - IMAGING | | | | + + + + + documented in this encounter Visit Diagnoses + + | Diagnosis | + + | DVT (deep venous thrombosis), bilateral | + + documented in this encounter"
--- OUTSIDE RECORDS SUMMARY | ~2019-11-01 | XMS | Encounter Summary ---
Demographics + + + | Address | [address] | | | [place] [address] | + + + | Home Phone [...] Providers + +------+ + | Care Clinical Reimbursement Specialist Name | Role | Phone | + +------+ + | Kirk French MD | PCP | | + +------+ + Encounter Details +--------+ + + + + | Date | Type | Department | Care Team | Description | +--------+ + + + + | 01/05/ | Orders Only | [facility] | Emmanuel Daniel MD | | | 2019 | | [facility] | [address] [place] | | | | | PATHOLOGY [address] | [address] [place], [place] | | | | | BLVD [place], [place] | [address] | | | | | [address] | | | | | | [phone] | | | +--------+ + + + [...] W | | | | | | [place], | | | | | | [place] [address] | | | | | | [phone] | | | | | | | | +--------+ + + + + | 11/20/ | Implant | Cardiology | Daljit Singletary, | Remote Device | | 2018 | Monitor | | MD [address] | Interrogation | | | | | [place], | (Primary Dx); | | | | | [place] [address] | Presence of | | | | | [phone] | permanent cardiac | | | | [...] | | | (atherosclerotic heart disease of [place] coronary artery without | | | angina [...] or | | | microscopic colitis. BES:[facility]:C3NR GROSS DESCRIPTION: A. The | | | specimen, labeled "Haddock, duodenal biopsy" is received in formalin | | | and consists of seven 0.1-0.5 cm lin fragments. Entirely submitted in | | | (A1). B. The specimen, labeled "Haddock, right colon" is received | | | in formalin and consists of six 0.2-0.3 cm lin fragments. Entirely | | | submitted in (B1). C. The specimen, labeled "Haddock, left colon" | | | is received in formalin and consists of six 0.2-0.3 cm lin-pink | | | fragments. Entirely submitted in (C1). am:AMB:portillo PERFORMING | | | LABORATORY: The technical component was performed by [facility] | | | [facility], [address] [place] [address] (Barrel Assembler Helper: | | | Kailey Stafford MD; CLIA# [id number]). Professional interpretation was | | | performed by [facility], [facility], [address] | | [place] [address] (Barrel Assembler Helper: Ishaan | | | Anthony Dao; CLIA#: [id number]). Diagnostician: Ishaan Dao | | | Pathologist [...]
--- OUTSIDE RECORDS SUMMARY | ~2019-11-01 | XMS | Encounter Summary ---
Demographics + + + | Address | [address] | | | [place] [address] | + + + | Home Phone [...] Providers + +------+ + | Care Outpatient Interviewing Clerk Name | Role | Phone | + +------+ + | Michael Amanda DO | PCP | | + +------+ + Encounter Details +--------+ + + + + | Date | Type | Department | Care Team | Description | +--------+ + + + + | 02/27/ | Hospital | [facility] | Shelly Carter DO | Chest pain; | | 2013 - | Encounter | [facility] | [address] | Pacemaker; | | | | CLINICAL DECISION | [place] [address] | Mild dehydration | | 02/28/ | | [address] [facility] | [phone] | | | 2013 | | [place], [place] | | | | | | [address] | | | | | | [phone] | | | +--------+ + + + [...] 2252 Date of Service: 02/28/141044 Status: Addendum Director Of Fundraising: Dev Montano MD (Physician) Related Notes: Original Note by Dev Montano MD (Physician) filed at 02/28/14 1107 Patient ID: Pina Gay [id number] y.o. 1960 Admit date: 02/27/2014 Discharge [...] - 99 mg/dL Final Testing performed at [address] [address] BUN Date Value Range Status 02/28/2014 15 8 - 25 mg/dL Final Testing performed at [address] [address] CREATININE Date Value Range Status 02/28/2014 0.74 0.70 - 1.30 mg/dL Final Testing performed at [address] [address] BUN/CREAT Date Value Range Status 02/28/2014 20 Final Testing performed at [address] [address] TOTAL PROTEIN Date Value Range Status 02/28/2014 6.1* 6.3 - 8.2 g/dL Final Testing performed at [address] [address] GLOBULIN Date Value Range Status 02/28/2014 2.1 1.3 - 4.9 g/dL Final Testing performed at [address] [address] TBIL Date Value Range Status 02/28/2014 1.4 0.1 - 1.5 mg/dL Final Testing performed at [address] [address] ALT Date Value Range Status 02/28/2014 27 10 - 65 U/L Final Testing performed at [address] [address] AST Date Value Range Status 02/28/2014 31 10 - 45 U/L Final Testing performed at [address] [address] SODIUM Date Value Range Status 02/28/2014 138 135 - 143 mmol/L Final Testing performed at [facility], [address] [place] [address] POTASSIUM Date Value Range Status 02/28/2014 3.4* 3.5 - 4.9 mmol/L Final Testing performed at [facility], [address] [place] [address] CHLORIDE Date Value Range Status 02/28/2014 108 99 - 109 mmol/L Final Testing performed at [address] [address] CO2 Date Value Range Status 02/28/2014 21* 23 - 32 mmol/L Final Testing performed at [facility], [address] [place] [address] ANION GAP AGAP Date Value Range Status 02/28/2014 12 5 - 20 mmol/L Final Testing performed at [facility], [address] [place] [address] Xr Chest Pa And Lateral 02/27/2014 PINA [...] 3-D reconstructi ons were performed using the Cuculus 3-D software and sent to PACS. Oral Contrast: None I V contrast: 100 mL IsoVue 370 COMPARISON: None. 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 Singletary in [place] in December 2013 at [facility] which showed minimal occlusive disease. One artery was 25% and another was 15%, per patient. I requested official cardiac catheterization report from [place] and still waiting for it to come. 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 You may get these medications from any pharmacy. amLODIPine 5 MG tablet pantoprazole 40 MG tablet Activity: activity as tolerated Diet: cardiac diet Wound Care: not applicable There are no Patient Instructions on file for this visit. Per Pt None Chaka Ortiz MD [address] [facility] [id number] In 1 week Ariel Pulido MD [address] [facility] [id number] In 1 week Daljit Singletary MD [address] [facility] [address] In 1 week Signed: DEV MONTANO 02/28/2014 10:45 AM Addendum:ADDENDUM I just received a cardiac catheterization report from [facility], [place], which was done on December 25, 2013. [...] 02/28/141211 Date of Service: 02/28/141210 Status: Signed Director Of Fundraising: Bijal Sosa RN (Registered Nurse) Discharge instructions [...] 02/28/1411 Date of Service: 02/28/1411 Status: Signed Director Of Fundraising: Mary Wetzel RPH (Pharmacist) Clinical Pharmacy Note: [...] | | | | | | [place] [address] | | | | | | [phone] | | | | | | | | +--------+ + + + + | 11/20/ | Implant | Cardiology | Daljit Singletary, | Remote Device | | 2018 | Monitor | | MD [facility] | Interrogation | | | | | [facility], | (Primary Dx); | | | | | [place] [address] | Presence of | | | | | [phone] | permanent cardiac | | | | [...] EXTERNAL | | | | performed at [facility];[address] | | LAB | | | | [address];[place], [place] | | | | | | [address] | | | | + + + [...] | | | | | | ACUTE DE Testing | | | | | | performed at [facility];[address] | | | | | | [facility];[place], [place] | | | | | | [address] | | | | + + + [...] | | | | | [place] [address] | | | | + + + + + + | RED CELL | 4.68Comment: Testing | 4.20 - 5.70 | EXTERNAL | | | COUNT | performed at [facility], [address] | M/uL | LAB | | | | [address], | | | | | | [place] [address] | | | | + + + + + + | Hgb | 15.3Comment: Testing | 13.2 - 17.0 | EXTERNAL | | | | performed at [facility], [address] | g/dL | LAB | | | | [address], | | | | | | [place] [address] | | | | + + + + + + | Hematocrit, | 44.2Comment: Testing | 39.0 - 50.0 % | EXTERNAL | | | POC | performed at [facility], [address] | | LAB | | | | [address], | | | | | | [place] [address] | | | | + + + + + + | MCV | 94.5Comment: Testing | 80.0 - 100.0 fl | EXTERNAL | | | | performed at [facility], [address] | | LAB | | | | [address], | | | | | | [place] [address] | | | | + + + + + + | MCH | 32.6Comment: Testing | 27.0 - 34.0 pg | EXTERNAL | | | | performed at [facility], [address] | | LAB | | | | [address], | | | | | | [place] [address] | | | | + + + + + + | MCHC | 34.5Comment: Testing | 32.0 - 35.5 | EXTERNAL | | | | performed at [facility], [address] | g/dL | LAB | | | | [address], | | | | | | [place] [address] | | | | + + + + + + | RDW-CV | 45.5Comment: Testing | 37 - 53 fl | EXTERNAL | | | | performed at [facility], [address] | | LAB | | | | [address], | | | | | | [place] [address] | | | | + + + + + + | Platelet | 156Comment: Testing | 150 - 400 K/uL | EXTERNAL | | | Count | performed at [facility], [address] | | LAB | | | Plasma | [address], | | | | | | [place] [address] | | | | + + + + + + | MPV | 8.8Comment: Testing | fl | EXTERNAL | | | | performed at [facility], [address] | | LAB | | | | [address], | | | | | | [place] [address] | | | | + + + + + + | Differentia | AUTOMATEDComment: | | EXTERNAL | | | l Type | Testing performed at | | LAB | | | | [facility], [address] | | | | | | [place] | | | | | | [address] | | | | + + + + + + | % Segmented | 57.7Comment: Testing | % | EXTERNAL | | | | performed at [facility], [address] | | LAB | | | Neutrophils | [address], | | | | | | [place] [address] | | | | + + + + + + | % | 31.8Comment: Testing | % | EXTERNAL | | | Lymphocytes | performed at [facility], [address] | | LAB | | | | [address], | | | | | | [place] [address] | | | | + + + + + + | % Monocytes | 9.2Comment: Testing | % | EXTERNAL | | | | performed at [facility], [address] | | LAB | | | | [address], | | | | | | [place] [address] | | | | + + + + + + | % | 0.9Comment: Testing | % | EXTERNAL | | | Eosinophils | performed at [facility], [address] | | LAB | | | | [address], | | | | | | [place] [address] | | | | + + + + + + | % Basophils | 0.4Comment: Testing | % | EXTERNAL | | | | performed at [facility], [address] | | LAB | | | | [address], | | | | | | [place] [address] | | | | + + + + + + | Absolute | 3.9Comment: Testing | 1.9 - 7.4 K/uL | EXTERNAL | | | Segmented | performed at [facility], [address] | | LAB | | | Neutrophils | [address], | | | | | | [place] [address] | | | | + + + + + + | Absolute | 2.1Comment: Testing | 1.0 - 3.9 K/uL | EXTERNAL | | | Lymphocytes | performed at [facility], [address] | | LAB | | | | [address], | | | | | | [place] [address] | | | | + + + + + + | Absolute | 0.6Comment: Testing | 0 - 0.8 K/uL | EXTERNAL | | | Monocytes | performed at [facility], [address] | | LAB | | | | [address], | | | | | | [place] [address] | | | | + + + + + + | Absolute | 0.1Comment: Testing | 0 - 0.5 K/uL | EXTERNAL | | | Eosinophils | performed at [facility], [address] | | LAB | | | | [address], | | | | | | [place] [address] | | | | + + + + + + | Absolute | 0.0Comment: Testing | 0 - 0.1 K/uL | EXTERNAL | | | Basophils | performed at [facility], [address] | | LAB | | | | [address], | | | | | | [place] [address] | | | | + + + [...] | | | | | [place] [address] | | | | + + + [...] EXTERNAL | | | | performed at [facility], [address] | | LAB | | | | [address], | | | | | | [place] [address] | | | | + + + [...] EXTERNAL | | | | performed at [facility];[address] | | LAB | | | | [address];[place] | | | | | | [address] | | | | + + + [...] | | | | | [place] [address] | | | | + + + + + + | Triglycerid | 37Comment: Testing | mg/dL | EXTERNAL | | | es | performed at [facility], [address] | | LAB | | | | [address], | | | | | | [place] [address] | | | | + + + + + + | HDL | 35 (L)Comment: Testing | mg/dL | EXTERNAL | | | | performed at [facility], [address] | | LAB | | | | [address], | | | | | | [place] [address] | | | | + + + + + + | LDL | 67Comment: Testing | mg/dL | EXTERNAL | | | Cholesterol | performed at [facility], [address] | | LAB | | | , | [address], | | | | | Calculated, | [place] [address] | | | | | External | [...] | | | | | [place] [address] | | | | + + + [...] | | | | | [place] [address] | | | | + + + + + + | CO2 | 21 (L)Comment: Testing | 23 - 32 mmol/L | EXTERNAL | | | | performed at [facility], [address] | | LAB | | | | [address], | | | | | | [place] [address] | | | | + + + + + + | Anion Gap | 12Comment: Testing | 5 - 20 mmol/L | EXTERNAL | | | | performed at [facility], [address] | | LAB | | | | [address], | | | | | | [place] [address] | | | | + + + + + + | Glucose, | 107 (H)Comment: Testing | 65 - 99 mg/dL | EXTERNAL | | | Fasting | performed at [facility], [address] | | LAB | | | | [address], | | | | | | [place] [address] | | | | + + + + + + | BUN | 15Comment: Testing | 8 - 25 mg/dL | EXTERNAL | | | | performed at [facility], [address] | | LAB | | | | [address], | | | | | | [place] [address] | | | | + + + + + + | Creatinine | 0.74Comment: Testing | 0.70 - 1.30 | EXTERNAL | | | | performed at [facility], [address] | mg/dL | LAB | | | | [address], | | | | | | [place] [address] | | | | + + + + + + | BUN/Creatin | 20Comment: Testing | | EXTERNAL | | | ine Ratio | performed at [facility], [address] | | LAB | | | | [address], | | | | | | [place] [address] | | | | + + + + + + | Calcium | 8.9Comment: Testing | 8.5 - 10.2 | EXTERNAL | | | | performed at [facility], [address] | mg/dL | LAB | | | | [address], | | | | | | [place] [address] | | | | + + + + + + | Protein, | 6.1 (L)Comment: Testing | 6.3 - 8.2 g/dL | EXTERNAL | | | Total | performed at [facility], [address] | | LAB | | | | [address], | | | | | | [place] [address] | | | | + + + + + + | Albumin | 4.0Comment: Testing | 3.6 - 5.0 g/dL | EXTERNAL | | | | performed at [facility], [address] | | LAB | | | [address], | | | | | | [place] [address] | | | | + + + + + + | Globulin | 2.1Comment: Testing | 1.3 - 4.9 g/dL | EXTERNAL | | | | performed at [facility], [address] | | LAB | | | | [address], | | | | | | [place] [address] | | | | + + + + + + | A/G Ratio | 1.9Comment: Testing | 1.0 - 2.4 | EXTERNAL | | | | performed at [facility], [address] | | LAB | | | | [address], | | | | | | [place] [address] | | | | + + + + + + | Bilirubin | 1.4Comment: Testing | 0.1 - 1.5 mg/dL | EXTERNAL | | | Total | performed at [facility], [address] | | LAB | | | | [address], | | | | | | [place] [address] | | | | + + + + + + | ALP, | 46Comment: Testing | 35 - 115 U/L | EXTERNAL | | | External | performed at [facility], [address] | | LAB | | | | [address], | | | | | | [place] [address] | | | | + + + + + + | AST | 31Comment: Testing | 10 - 45 U/L | EXTERNAL | | | | performed at [facility], [address] | | LAB | | | | [address], | | | | | | [place] [address] | | | | + + + + + + | ALT | 27Comment: Testing | 10 - 65 U/L | EXTERNAL | | | | performed at [facility], [address] | | LAB | | | | [address], | | | | | | [place] [address] | | | | + + + [...] | | | | | | at [facility], [address] | | | | | | [address], | | | | | | [place] [address] | | | | + + + [...] EXTERNAL | | | | performed at [facility];[address] | | LAB | | | | [address];[place], [place] | | | | | | [address] | | | | + + + [...] | | | | | | ACUTE DE Testing | | | | | | performed at [facility] | | | | | | [facility];[place], [place] | | | | | | [address] | | | | + + + [...] EXTERNAL | | | | performed at [facility];[address] | | LAB | | | | [facility], [place] | | | | | | [address] | | | | + + + [...] were | | | performed using the Cuculus 3-D software and sent to PACS. Oral | | | Contrast: None IV contrast: 100 mL IsoVue 370 COMPARISON: None. | | | FINDINGS: CHEST: The commercial leasing manager view shows a pacemaker via left | [...] reconstructions were performed | | using the Cuculus 3-D software and sent to PACS. Oral Contrast: NoneIV contrast: 100 | | mL IsoVue 370 COMPARISON:None. FINDINGS: CHEST: The commercial leasing manager view shows a pacemaker via | | [...] EXTERNAL | | | | performed at [facility];[address] | | LAB | | | | [address];[place] | | | | | | [address] | | | | + + + + + -+ | RED CELL | 5.19Comment: Testing | 4.20 - 5.70 | EXTERNAL | | | COUNT | performed at [facility];[address] | M/uL | LAB | | | | [address];[place] | | | | | | [address] | | | | + + + + + -+ | Hgb | 16.8Comment: Testing | 13.2 - 17.0 | EXTERNAL | | | | performed at [facility];[address] | g/dL | LAB | | | | [address];[place] | | | | | | [address] | | | | + + + + + -+ | Hematocrit, | 49.5Comment: Testing | 39.0 - 50.0 % | EXTERNAL | | | POC | performed at [facility];[address] | | LAB | | | | [address];[place] | | | | | | [address] | | | | + + + + + -+ | MCV | 95.4Comment: Testing | 80.0 - 100.0 fl | EXTERNAL | | | | performed at [facility];[address] | | LAB | | | | [address];[place] | | | | | | [address] | | | | + + + + + -+ | MCH | 32.4Comment: Testing | 27.0 - 34.0 pg | EXTERNAL | | | | performed at [facility];[address] | | LAB | | | | [address];[place] | | | | | | [address] | | | | + + + + + -+ | MCHC | 34.0Comment: Testing | 32.0 - 35.5 | EXTERNAL | | | | performed at [facility];[address] | g/dL | LAB | | | | [address];[place] | | | | | | [address] | | | | + + + + + -+ | RDW-CV | 46.8Comment: Testing | 37 - 53 fl | EXTERNAL | | | | performed at [facility];[address] | | LAB | | | | [address];[place] | | | | | | [address] | | | | + + + + + -+ | Platelet | 179Comment: Testing | 150 - 400 K/uL | EXTERNAL | | | Count | performed at [facility];[address] | | LAB | | | Plasma | [address];[place] | | | | | | [address] | | | | + + + + + -+ | MPV | 8.6Comment: Testing | fl | EXTERNAL | | | | performed at [facility];[address] | | LAB | | | | [address];[place] | | | | | | [address] | | | | + + + + + -+ | Differentia | AUTOMATEDComment: | | EXTERNAL | | | l Type | Testing performed at | | LAB | | | | [facility];[address];[place] [address] | | | | + + + + + -+ | % Segmented | 62.4Comment: Testing | % | EXTERNAL | | | | performed at [facility];[address] | | LAB | | | Neutrophils | [address];[place] | | | | | | [address] | | | | + + + + + -+ | % | 26.3Comment: Testing | % | EXTERNAL | | | Lymphocytes | performed at [facility];[address] | | LAB | | | | [address];[place] | | | | | | [address] | | | | + + + + + -+ | % Monocytes | 10.3Comment: Testing | % | EXTERNAL | | | | performed at [facility];[address] | | LAB | | | | [address];[place] | | | | | | [address] | | | | + + + + + -+ | % | 0.5Comment: Testing | % | EXTERNAL | | | Eosinophils | performed at [facility];[address] | | LAB | | | | [address];[place] | | | | | | [address] | | | | + + + + + -+ | % Basophils | 0.5Comment: Testing | % | EXTERNAL | | | | performed at [facility];[address] | | LAB | | | | [address];[place] | | | | | | [address] | | | | + + + + + -+ | Absolute | 6.3Comment: Testing | 1.9 - 7.4 K/uL | EXTERNAL | | | Segmented | performed at [facility];[address] | | LAB | | | Neutrophils | [address];[place] | | | | | | [address] | | | | + + + + + -+ | Absolute | 2.7Comment: Testing | 1.0 - 3.9 K/uL | EXTERNAL | | | Lymphocytes | performed at [facility];[address] | | LAB | | | | [address];[place] | | | | | | [address] | | | | + + + + + -+ | Absolute | 1.0 (H)Comment: Testing | 0 - 0.8 K/uL | EXTERNAL | | | Monocytes | performed at [facility];[address] | | LAB | | | | [address];[place] | | | | | | [address] | | | | + + + + + -+ | Absolute | 0.0Comment: Testing | 0 - 0.5 K/uL | EXTERNAL | | | Eosinophils | performed at [facility];[address] | | LAB | | | | [address];[place] | | | | | | [address] | | | | + + + + + -+ | Absolute | 0.1Comment: Testing | 0 - 0.1 K/uL | EXTERNAL | | | Basophils | performed at [facility];[address] | | LAB | | | | [address];[place] | | | | | | [address] | | | | + + + + + -+ | Na | 139Comment: Testing | 135 - 143 | EXTERNAL | | | | performed at [facility];[address] | mmol/L | LAB | | | | [address];[place] | | | | | | [address] | | | | + + + + + -+ | K | 3.4 (L)Comment: Testing | 3.5 - 4.9 | EXTERNAL | | | | performed at [facility];[address] | mmol/L | LAB | | | | [address];[place] | | | | | | [address] | | | | + + + + + -+ | Cl | 108Comment: Testing | 99 - 109 mmol/L | EXTERNAL | | | | performed at [facility];[address] | | LAB | | | | [address];[place] | | | | | | [address] | | | | + + + + + -+ | CO2 | 21 (L)Comment: Testing | 23 - 32 mmol/L | EXTERNAL | | | | performed at [facility];[address] | | LAB | | | | [address];[place] | | | | | | [address] | | | | + + + + + -+ | Anion Gap | 14Comment: Testing | 5 - 20 mmol/L | EXTERNAL | | | | performed at [facility];[address] | | LAB | | | | [address];[place] | | | | | | [address] | | | | + + + + + -+ | Glucose, | 124 (H)Comment: Testing | 65 - 99 mg/dL | EXTERNAL | | | Fasting | performed at [facility];[address] | | LAB | | | | [address];[place] | | | | | | [address] | | | | + + + + + -+ | BUN | 20Comment: Testing | 8 - 25 mg/dL | EXTERNAL | | | | performed at [facility];[address] | | LAB | | | | [address];[place] | | | | | | [address] | | | | + + + + + -+ | Creatinine | 0.97Comment: Testing | 0.70 - 1.30 | EXTERNAL | | | | performed at [facility];[address] | mg/dL | LAB | | | | [address];[place] | | | | | | [address] | | | | + + + + + -+ | BUN/Creatin | 21Comment: Testing | | EXTERNAL | | | ine Ratio | performed at [facility];[address] | | LAB | | | | [address];[place] | | | | | | [address] | | | | + + + + + -+ | Calcium | 8.7Comment: Testing | 8.5 - 10.2 | EXTERNAL | | | | performed at [facility];[address] | mg/dL | LAB | | | | [address];[place] | | | | | | [address] | | | | + + + + + -+ | Protein, | 7.6Comment: Testing | 6.3 - 8.2 g/dL | EXTERNAL | | | Total | performed at [facility];[address] | | LAB | | | | [address];[place] | | | | | | [address] | | | | + + + + + -+ | Albumin | 4.2Comment: Testing | 3.6 - 5.0 g/dL | EXTERNAL | | | | performed at [facility];[address] | | LAB | | | | [address];[place] | | | | | | [address] | | | | + + + + + -+ | Globulin | 3.4Comment: Testing | 1.3 - 4.9 g/dL | EXTERNAL | | | | performed at [facility];[address] | | LAB | | | | [address];[place] | | | | | | [address] | | | | + + + + + -+ | A/G Ratio | 1.2Comment: Testing | 1.0 - 2.4 | EXTERNAL | | | | performed at [facility];[address] | | LAB | | | | [address];[place] | | | | | | [address] | | | | + + + + + -+ | Bilirubin | 1.1Comment: Testing | 0.1 - 1.5 mg/dL | EXTERNAL | | | Total | performed at [facility];[address] | | LAB | | | | [address];[place] | | | | | | [address] | | | | + + + + + -+ | ALP, | 77Comment: Testing | 35 - 115 U/L | EXTERNAL | | | External | performed at [facility];[address] | | LAB | | | | [address];[place] | | | | | | [address] | | | | + + + + + -+ | AST | 35Comment: Testing | 10 - 45 U/L | EXTERNAL | | | | performed at [facility];[address] | | LAB | | | | [address];[place] | | | | | | [address] | | | | + + + + + -+ | ALT | 43Comment: Testing | 10 - 65 U/L | EXTERNAL | | | | performed at [facility];[address] | | LAB | | | | [address];[place] | | | | | | [address] | | | | + + + [...] | | | | | | at [facility];[address] | | | | | | [address];[place] [address] | | | | + + + + + -+ | CK, Total | 510 (H)Comment: Testing | 55 - 400 U/L | EXTERNAL | | | | performed at [facility];[address] | | LAB | | | | [address];[place] | | | | | | [address] | | | | + + + [...] | | | | | performed at [facility];[address] | | [address];[place] | | | | | | [address] | | | | + + + + + -+ | aPTT, | 24Comment: Testing | 23 - 32 seconds | EXTERNAL | | | Patient | performed at [facility];[address] | | LAB | | | | [address];[place] | | | | | | [address] | | | | + + + + + -+ | CK-MB | 9.3 (H)Comment: Testing | 0.5 - 3.6 ng/mL | EXTERNAL | | | | performed at [facility];[address] | | LAB | | | | [facility];[place], [place] | | | | | | [address] | | | | + + + [...] EXTERNAL | | | | performed at [facility];[address] | uIU/mL | LAB | | | | [address];[place] | | | | | | [address] | | | | + + + [...] EXTERNAL | | | | performed at [facility];[address] | | LAB | | | | [address];[place], [place] | | | | | | [address] | | | | + + + [...]
--- OUTSIDE RECORDS SUMMARY | ~2019-11-01 | XMS | Encounter Summary ---
Demographics + + + | Address | [address] | | | [place] [address] | + + + | Home Phone [...] + + | 12/01/ | Hospital | [facility] | | | | 1997 | Encounter | [facility] | [facility] [address] | | | | | | [place] | | | | | | [address] | | | | | | [phone] | | | +--------+ + + + [...] | | | | | | [place] [address] | | | | | | [phone] | | | | | | | | +--------+ + + + + | 11/20/ | Implant | Cardiology | Daljit Singletary, | Remote Device | | 2018 | Monitor | | [address] [facility] | Interrogation | | | | | [facility], | (Primary Dx); | | | | | [place] [address] | Presence of | | | | | [phone] | permanent cardiac | | | | [...]
--- OUTSIDE RECORDS SUMMARY | ~2019-11-01 | XMS | Encounter Summary ---
Demographics + + + | Address | [address] | | | [place] [address] | + + + | Home Phone [...] Team Providers + +------+ + | Care Aboriginal Ceremonial Celebrant Name | Role | Phone | + [...] Eva ROUSE | | | | | [place], [place] | [address] | | | | | [address] | [place] [address] | | | | | [phone] | [phone] | | | | | | | [...] | | | | | | [place] [address] | | | | | | [phone] | | | | | | | | +--------+ + + + + | 11/20/ | Implant | Cardiology | Daljit Singletary, | Remote Device | | 2018 | Monitor | | [address] | Interrogation | | | | | [place], | (Primary Dx); | | | | | [place] [address] | Presence of | | | | | [phone] | permanent cardiac | | | | [...] | | | Basophils | performed at [facility];[address] | 10*3/uL | LAB | | | | [address] | | | | | | [address];[place] [address] | | | | + + + [...] | | | | | Blvd;[place] [address] | | | | + + + [...] | | | | | at [facility];[address] | | | | | | [facility];[place] | | | | | | [address] | | | | + + + [...]
--- OUTSIDE RECORDS SUMMARY | ~2019-11-01 | XMS | Encounter Summary ---
Demographics + + + | Address | [address] | | | [place] [address] | + + + | Home Phone [...] Team Providers + +------+ + | Care Teaseler Name | Role | Phone | + [...] | CARDIOLOGY [address] | [address] | Interrogation | | | | [place], | [place], | (Primary Dx); | | | | [place] [address] | [place] [address] | Presence of | | | | [phone] | [phone] | permanent cardiac | | | | [...] | | | | | | [place] [address] | | | | | | [phone] | | | | | | | | +--------+ + + + + | 11/20/ | Implant | Cardiology | Daljit Singletary, | Remote Device | | 2019 | Monitor | | MD [address] [facility] | Interrogation | | | | | [place], | (Primary Dx); | | | | | [place] [address] | Presence of | | | | | [phone] | permanent cardiac | | | | [...]
--- OUTSIDE RECORDS SUMMARY | ~2019-11-01 | XMS | Encounter Summary ---
Demographics + + + | Address | [address] | | | [place] [address] | + + + | Home Phone [...] Providers + +------+ + | Care Lamination Builder Name | Role | Phone | [...] + + | 10/23/ | Office | [facility] | Silvia, | CAD (coronary artery | | 2013 | Visit | CARDIOLOGY [address] | [address] | disease) (Primary | | | | [place], | [place], | Dx); Other chest | | | | [place] [address] | [place] [address] | pain; Chest pain; | | | | [phone] | [phone] | Coronary artery | | | | [...] Sanchez Date: October 23, 2014 : 1960 Grants Director: Kailey Pruitt RN Device Call Or Contact Centre Manager: [employer] Sense (mV) Impedance (?) Capture (V) Capture (ms) A Lead 2.80-4.00 407 1.500 0.09 RV Lead 22.40-31.36 519 2.000 0.09 LV Lead Battery Impedance (?): 658 Battery Voltage (V): 2.79 MS Interval (ms): 155 AR Interval (ms): 240 VA Conduction: Mode Switch Events: 1 % of time: <0.1 -WORK CAR OPERATOR: <0.1% AP-WORK CAR OPERATOR: <0.1% -VS: 13.8% AP-VS: 86.1% WORK CAR OPERATOR: Magnetic Rate: 85 LINDA: 65 LEAH: [...] Kailey Pruitt RN 10/23/2014 15:22 ames Janeen, DIRECTOR HYDROGEN STORAGE ENGINEERING - 10/23/2014 2:22 PM PST PATIENT NAME: [...] needed for Chest pain. 25 tablet 12 [place]-3 Fatty Acids (SALMON OIL-1000 PO) CAPS, one [...] attenuation cannot completely be ruled out. D. [facility] 12/25/13, shows non critical coronary [...] is i n class I-II of [place] 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 There are no [...] to go back in 3 days to [place] for an attempt of ablation under [...] He is in class I-II of [place] 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 There are n [...] this chart may have been created with Ule voice recognition software. Occasi onal wrong-word or [...] | | | | | | [place] [address] | | | | | | [phone] | | | | | | | | +--------+ + + + + | 11/20/ | Implant | Cardiology | Anshushaistatesha Shaistaanshu, | Remote Device | | 2019 | Monitor | | [address] [facility] | Interrogation | | | | | [place], | (Primary Dx); | | | | | [place] [address] | Presence of | | | | | [phone] | permanent cardiac | | | | [...] 23, 2014 : | | | 1960 Grants Director: Kailey Pruitt RN Device Call Or Contact Centre Manager: | | | [employer] Sense (mV) Impedance (?) Capture (V) Capture (ms) A | | | Lead 2.80-4.00 407 1.500 0.09 RV Lead 22.40-31.36 519 2.000 0.09 | | | LV Lead Battery Impedance (?): 658 Battery Voltage (V): 2.79 | | | MS Interval (ms): 155 AR Interval (ms): 240 VA Conduction: Mode | | | Switch Events: 1 % of time: <0.1 -WORK CAR OPERATOR: <0.1% AP-WORK CAR OPERATOR: <0.1% -VS: | | | 13.8% AP-VS: 86.1% WORK CAR OPERATOR: Magnetic Rate: 85 LINDA: 65 LEAH: [...] | | Date: October 23, 2014DOB: 1960 Grants Director: Chikis Saule Call Or Contact Centre Manager: | | [employer]onic Sense (mV) Impedance (?) Capture (V) Capture (ms) A Lead 2.80-4.00 407 1.500 | | 0.09 RV Lead 22.40-31.36 519 2.000 0.09 LV Lead Battery Impedance (?): 658 Battery | | Voltage (V): 2.79 MS Interval (ms): 155 AR Interval (ms): 240 VA Conduction: Mode | | Switch Events: 1 % of time: <0.1 -WORK CAR OPERATOR: <0.1% AP-WORK CAR OPERATOR: <0.1% -VS: 13.8% AP-VS: 86.1% WORK CAR OPERATOR: | | Magnetic Rate: 85 LINDA: 65 [...] of unspecified type of vessel, | | [place] or graft | + + [...]
--- OUTSIDE RECORDS SUMMARY | ~2019-11-01 | XMS | Encounter Summary ---
Demographics + + + | Address | [address] | | | [place] [address] | + + + | Home Phone [...] Providers + +------+ + | Care Shipping Services Sales Representative Name | Role | Phone [...] Refill | | 2013 | | [facility] [place] | DO [address] | | | | | [address] | [place] | | | | | [place] | [address] | | | | | [address] | | | | | | [phone] | | | +--------+--------+ + + + [...] W | | | | | | [place], | | | | | | [place] [address] | | | | | | [phone] | | | | | | | | +--------+ + + + + | 11/20/ | Implant | Cardiology | Daljit Singletary, | Remote Device | | 2018 | Monitor | | [address] [facility] | Interrogation | | | | | [place], | (Primary Dx); | | | | | [place] [address] | Presence of | | | | | [phone] | permanent cardiac | | | | [...]
--- OUTSIDE RECORDS SUMMARY | ~2019-11-01 | XMS | Encounter Summary ---
Demographics + + + | Address | [address] | | | [place] [address] | + + + | Home Phone [...] + +------+ + | Care Auto Painter Name | Role | Phone | + +------+ + | Kirk French MD | PCP | | + +------+ + Encounter Details +--------+ + + + + | Date | Type | Department | Care Team | Description | +--------+ + + + + | 06/19/ | Orders Only | [facility] | Fabrice Hylton, | Abnormal weight | | 2019 | | SYSTEM GENERIC OP | MD [address] | loss; Anxiety | | | | CONVERSION [address] | [address] [place], [place] | disorder; Chronic | | | | [address] [place], [place] | [address] | pain syndrome; | | | | [address] | | Obesity; Neuralgia | | | | [phone] | | and neuritis, | | | [...] W | | | | | | [place], | | | | | | [place] [address] | | | | | | [phone] | | | | | | | | +--------+ + + + + | 11/20/ | Implant | Cardiology | Daljit Singletary, | Remote Device | | 2019 | Monitor | | [address] | Interrogation | | | | | [place], | (Primary Dx); | | | | | [place] [address] | Presence of | | | | | [phone] | permanent cardiac | | | | [...]
--- OUTSIDE RECORDS SUMMARY | ~2019-11-01 | XMS | Encounter Summary ---
Demographics + + + | Address | [address] | | | [place] [address] | + + + | Home Phone [...] Team Providers + +------+ + | Care Benefits Clerk Name | Role | Phone | + +------+ + | Kirk French MD | PCP | | + +------+ + Encounter Details +--------+---------+ + + + | Date | Type | Department | Care Team | Description | +--------+---------+ + + + | 01/05/ | Surgery | [facility] | Emmanuel Daniel MD | EGD | | 2019 | | MED CTR MP INTRA OP | [address], [place] | | | | | [address] | [address] [place], [place] | | | | | [place], [place] | [address] | | | | | [address] | | | | | | [phone] | | | +--------+---------+ + + + [...] for a few hours. Date Last Reviewed: 09/22/201619998655-2028 [employer] [place] [address]. All righ ts reserved. This information is [...] vomiting, or vomiting blood Date Last Reviewed: 05/22/201619990965-0733 [employer] [place] [address]. All righ ts reserved. This information is [...] You can't be awakened Date Last Reviewed: 09/08/201619996028-6571 [employer]. [address] [place] [address], [place] [address]. All righ ts reserved. This information is [...] + + + +---------+ + + | [place]-3 Fatty | CAPS, one capsule by | [...] W | | | | | | [address] [place], | | | | | | [place] [address] | | | | | | [phone] | | | | | | | | +--------+ + + + + | 11/20/ | Implant | Cardiology | Daljit Singletary, | Remote Device | | 2018 | Monitor | | [address] [facility] | Interrogation | | | | | [place], | (Primary Dx); | | | | | [place] [address] | Presence of | | | | | [phone] | permanent cardiac | | | | [...] [address], | REFERENCE LAB | | [place], [place] [address] Remedial Reading Teacher: Miguel Galarza MD, Phone: | [facility] | | [phone] | | + + + + + + + + | Performing | Address | City/State/Zipcode | Phone Number | | Organization | | | | + + + + + | REFERENCE LAB | [address] | [place] [address] | [phone] | | [facility] | Drive [...] + + | Performed at: 01 - [facility] [address] [place] [address], | REFERENCE LAB | | [place], [place] [id number] Remedial Reading Teacher: Miguel Galarza MD, Phone: | [facility] | | [phone] | | + + + + + + + + | Performing | Address | City/State/Zipcode | Phone Number | | Organization | | | | + + + + + | REFERENCE LAB | [address] | [place] [address] | [phone] | | [facility] | Drive [...] [address] | [place] | [phone] | | [facility] | | [address] | | | - LABORATORY | | [...] on the effects | | ST[facility]uan [facility] | | | EIA | of colonic [...] [address] | [place] | [phone] | | [facility] | | [address] | | | - LABORATORY | | [...] [address] | [place] | [phone] | | [facility] | | [address] | | | - LABORATORY | | [...] [address] | [place] | [phone] | | [facility] | | [address] | | | - LABORATORY | | [...] + | [facility] | [address] | [place] | [phone] | | [facility] | | [address] | | | - LABORATORY | | [...] [address] | [place] | [phone] | | [facility] | | [address] | | | - LABORATORY | | | | + + + + + EGD (01/05/2019 8:36 AM PST) + + | Specimen | + + | | + + + + -+ | Narrative | Performed At | + + -+ | | [facility] | | GastroenterologyPatient Name: Moe Venegas Date: | PROVATION | | 01/05/2019 8:36 AMMRN: [id number] #: [id number] of : | | | 9Admit Type: AmbulatoryAge: 58Room: [facility] 01Gender: MaleNote | | | Status: FinalizedAttending MD: Emmanuel Daniel , [facility]cedure: | | | Upper GI endoscopyIndications: Diarrhea, Weight | | | lossProviders: Emmanuel Daniel MD, Heidi Gonzalezchfield, | | | RN, Kim Hicks, Operation Manager, | | | Jarett Barakat MD [...] physician, the nurse, the anesthesiologist and the renal dialysis technician | | | in the endoscopy [...] | | Imaging was performed using the [employer] | | | Endoscopy (FICE) [...] Scope In: 8:43:57 AMScope Out: 8:49:[address] | | | [facility], [address] [place] [address] | | | [phone] | | |Recommendation: | | | - [...] |Scope Out: 8:49:50 AM | | | [facility], [address] [facility], [place], [place] | | | [address] | | + + -+ + +---------+ [...] | PROVATION | | 01/05/2019 8:36 AMMRN: [id number] #: [id number] of : | | | 9Admit Type: AmbulatoryAge: 58Room: [facility] 01Gender: MaleNote | | | Status: FinalizedAttending MD: Emmanuel Daniel , [facility]rocedure: | | | ColonoscopyIndications: Clinically significant diarrhea of | | | unexplained origin, Weight lossProviders: | | | Emmanuel Daniel MD, Heidi An RN, Kim | | | Fiorella Hicks, Operation Manager, Jarett Alejo | | | MD Roshni [...] | | | the anesthesiologist and the renal dialysis technician in the endoscopy suite. | | [...] AMScope Out: | | | 9:06:28 AM [facility], [address] [facility], | | | [place] [address] | | | - Discharge patient to [...] |Scope Out: 9:06:28 AM | | | [facility], [address] [place] [address], [place], [place] | | | [address] | | + + -+ + +---------+ [...] | (atherosclerotic heart disease of [place] coronary artery without | | | angina [...] chronic or | | | microscopic colitis. BES:[facility]:C3NR GROSS DESCRIPTION: A. The | | | specimen, labeled "[place], duodenal biopsy" is received in formalin | | | and consists of seven 0.1-0.5 cm lin fragments. Entirely submitted in | | | (A1). B. The specimen, labeled "[place], right colon" is received | | | in formalin and consists of six 0.2-0.3 cm lin fragments. Entirely | | | submitted in (B1). C. The specimen, labeled "[place], left colon" | | | is received in formalin and consists of six 0.2-0.3 cm lin-pink | | | fragments. Entirely submitted in (C1). am:AMB:rds PERFORMING | | | LABORATORY: The technical component was performed by [facility] | | | [facility], [address] [place] [address] (Elementary Science Teacher: | | | Kailey Stafford MD; CLIA# [id number]). Professional interpretation was | | | performed by [facility], [facility], [address] | | | [place] [address] (Elementary Science Teacher: Ishaan | | | Anthony Dao; CLIA#: [id number]). Diagnostician: Ishaan Fitzpatrick | | | Sylwia WINKLER Pathologist Electronically Signed 01/06/2019 | | + + + + +---------+ + + | Performing | Address | City/State/[facility]code | Phone Number | | Organization [...] | mL/hr | | | CONTINUOUS, Starting [facility] 01/05/19 | | AM PST | | | | | at 0800, Pre-op | | | | | | + +---------+ +---+-------+---+ + +---+ | | | + +---+ | ondansetron (ZOFRAN) injection | | | 4 mg 4 mg, Oral, EVERY 4 HOURS | | | PRN, Nausea, Vomiting, Starting | | | [facility] 01/05/19 at 0924, | | | Recovery/Phase [...]
--- OUTSIDE RECORDS SUMMARY | ~2019-11-01 | XMS | Encounter Summary ---
Demographics + + + | Address | [address] | | | [place] [address] | + + + | Home Phone [...] Team Providers + +------+ + | Care Caustic Purification Operator Name | Role | Phone | [...] [place] | | | | | | [address] | | | | | | [phone] | | | +--------+ + + + [...] | | | | | | [place], | | | | | | [place] [address] | | | | | | [phone] | | | | | | | | +--------+ + + + + | 11/20/ | Implant | Cardiology | Daljit Singletary, | Remote Device | | 2018 | Monitor | | [address] [facility] | Interrogation | | | | | [place], | (Primary Dx); | | | | | [place] [address] | Presence of | | | | | [phone] | permanent cardiac | | | | [...]
--- OUTSIDE RECORDS SUMMARY | ~2019-11-01 | XMS | Encounter Summary ---
Demographics + + + | Address | [address] | | | [place] [address] | + + + | Home Phone [...] Team Providers + +------+ + | Care Centrifugal Drier Operator Name | Role | Phone | + +------+ + PCP | Unavailable | + +------+ + Encounter Details +--------+ + + + + | Date | Type | Department | Care Team | Description | +--------+ + + + + | 04/23/ | Hospital | [facility] | | | | 2007 - | Encounter | MED CTR MED ONC | | | | | | [address] | | | | 04/24/ | | [place] [address] | | | | 2007 | | [phone] | | | +--------+ + + + [...] | | | | | | [place] [address] | | | | | | [phone] | | | | | | | | +--------+ + + + + | 11/20/ | Implant | Cardiology | Daljit Singletary, | Remote Device | | 2018 | Monitor | | [address] [facility] | Interrogation | | | | | [place], | (Primary Dx); | | | | | [place] [address] | Presence of | | | | | [phone] | permanent cardiac | | | | [...]
--- OUTSIDE RECORDS SUMMARY | ~2019-11-01 | XMS | Encounter Summary ---
Demographics + + + | Address | [address] | | | [place] [address] | + + + | Home Phone [...] Team Providers + +------+ + | Care Aoc Director Combat Plans Officer Name | Role | Phone | [...] | | | | CENTER [address] | [address] | | | | | [place] | [place] | | | | | [address] | [address] | | | | | [phone] | | | +--------+ + + + [...] + + + +---------+ + + | [place]-3 Fatty | CAPS, one capsule by | [...] | | | | | | | [place] coronary | | | | | | | artery of [place] | | | | | | | [...] | | | | | | [place] [address] | | | | | | [phone] | | | | | | | | +--------+ + + + + | 11/20/ | Implant | Cardiology | Daljit Singletary, | Remote Device | | 2018 | Monitor | | [address] [facility] | Interrogation | | | | | [place], | (Primary Dx); | | | | | [place] [address] | Presence of | | | | | [phone] | permanent cardiac | | | | [...] [address] | [place] | [phone] | | [facility] | | [address] | | | - LABORATORY | | [...] + | [address] | [address] | [place] | [phone] | | [facility] | | [address] | | | - LABORATORY | | [...] in | 12 - 53 U/L | PROVID[facility] | | | | use as of [...] + | [facility] | [address] | [place] | [phone] | | [facility] | | [address] | | | - LABORATORY | | [...] [facility] | | | [place] | RATE,ESTIMATED | | MEDICAL | | | | mL/min/1.76z2Ezlo than | | CENTER - | | [...] ST. | [address] | [place], [place] | [phone] | | [facility] | | [address] | | | - LABORATORY | | [...] + | [address] | [address] | [place] | [phone] | | [facility] | | [address] | | | - LABORATORY | | [...] [address] | [place] | [phone] | | [facility] | | [address] | | | - LABORATORY | | [...] | | | | ANGELA MARADIAGA MD ([address]) | | | | | | on [...] | | | | | Patient Address: [address] [place] [address] | | | | | | | [place] [address], | | | | | | + + + +------+---+---+ +---+---+ | | | +---+---+ documented in this encounter
--- OUTSIDE RECORDS SUMMARY | ~2019-11-01 | XMS | Encounter Summary ---
Demographics + + + | Address | [address] | | | [place] [address] | + + + | Home Phone [...] Team Providers + +------+ + | Care Translational Specialist Name | Role | Phone | [...] | | | | [place] | | [address] Phone: | | | | | CYSTO/URETER | | [phone] | | | | | O | | Fax: | | | | | W/LITHOTRIPS | | [phone] | | | | | Y &INDWELL [...] + + | 04/13/ | Surgery | [facility] | Matthew Uriarte | Cystoscopy, Left | | 2018 | | MED CTR OR INTRA OP | Dahl, MD [address] | ureteroscopy with | | | | [address] | [address] [place] | laser lithotripsy, | | | | [place], [place] | [address] | Left ureteral stent | | | | [address] | | placement | | | | [phone] | | | +--------+---------+ + + + [...] Care Everywhere.Kidney Stones, Treating: Ureteroscopic Stone Removal (Indian)Stents, Ureteral (Indian)documented in this encounter Medications at Time of [...] + + +---------+ + + | [place]-3 Fatty | CAPS, one capsule by | [...] | | | | | | | [place] coronary | | | | | | | artery of [place] | | | | | | | [...] | | | | | | [place] [address] | | | | | | [phone] | | | | | | | | +--------+ + + + + | 11/20/ | Implant | Cardiology | Daljit Singletary, | Remote Device | | 2018 | Monitor | | [address] [facility] | Interrogation | | | | | [place], | (Primary Dx); | | | | | [place] [address] | Presence of | | | | | [phone] | permanent cardiac | | | | [...] [facility] | | | | | | at:[phone]. | | | | + + + [...] [address], | REFERENCE LAB | | [place], [place] [address] Typesetting Supervisor: Yeny Rios MD, Phone: | [facility] | | [phone] | | + + + + + + + + | Performing | Address | City/State/Zipcode | Phone Number | | Organization | | | | + + + + + | REFERENCE LAB | [address] | [place] [address] | [phone] | | [facility] | Drive [...] | | Phosphatase | | | [facility] | | [...] [address] | [place] | [phone] | | [facility] | | [address] | | | - LABORATORY | | [...] ST. | [address] | [place], [place] | [phone] | | [facility] | | [address] | | | - LABORATORY | | [...] [address] | [place] | [phone] | | [facility] | | [address] | | | - LABORATORY | | [...] + | [address] | [address] | [place] | [phone] | | [facility] | | [address] | | | - LABORATORY | | [...] | 0.92 | 0.70 - 1.30 | [place] | | | | | mg/dL | [facility] | | | | | | MEDICAL | | | | | | CENTER - | | | | | | LABORATORY | | + + + + + + | eGFR if not | >60Comment: GLOMERULAR | >=60 | [place] | | | | FILTRATION | mL/min/1.73m2 | [facility] | | | [place] | RATE,ESTIMATED | | MEDICAL | | | | mL/min/1.37e1Inmt than | | CENTER - | | [...] [address] | [place] | [phone] | | [facility] | | [address] | | | - LABORATORY | | [...] | 500 mg 500 mg, Oral, ONCE, [facility] | | 19 7:35 | | [...] glucose < 50, | | | Starting [facility] 04/13/19 at 0634, | | | [...] | | | | | | | spfjwl-rde-tskde use of at least | | | [...]
--- OUTSIDE RECORDS SUMMARY | ~2019-11-01 | XMS | Encounter Summary ---
Demographics + + + | Address | [address] | | | [place] [address] | + + + | Home Phone [...] Providers + +------+ + | Care Director Utilization Management Name | Role | Phone | [...] 2012 | | CARDIOLOGY [address] | HR ANALYST [address] | | | | | [place], | [place], [place] | | | | | [place] [address] | [address] | | | | | [phone] | | | +--------+ + + + [...] | | | | | | [place] [address] | | | | | | [phone] | | | | | | | | +--------+ + + + + | 11/20/ | Implant | Cardiology | Daljit Singletary, | Remote Device | | 2018 | Monitor | | [address] | Interrogation | | | | | [place], | (Primary Dx); | | | | | [place] [address] | Presence of | | | | | [phone] | permanent cardiac | | | | [...]
--- OUTSIDE RECORDS SUMMARY | ~2019-11-01 | XMS | Encounter Summary ---
Demographics + + + | Address | [address] | | | [place] [address] | + + + | Home Phone [...] Providers + +------+ + | Care Weight Guesser Name | Role | Phone | + +------+ + PCP | Unavailable | + +------+ + Encounter Details +--------+ + + + + | Date | Type | Department | Care Team | Description | +--------+ + + + + | 05/24/ | Hospital | [facility] | Chi Fang | Unspecified Chest | | 2008 - | Encounter | [facility]ENTER | MD Kelsey [address] | Pain | | | | CLINICAL DECISION | CHRISTOPH HERNANDEZ | | | 05/25/ | | [address] | [address] | | | 2008 | | [place], [place] | [phone] | | | | | [address] | | | | | | [phone] | | | +--------+ + + + [...] W | | | | | | [place], | | | | | | [place] [address] | | | | | | [phone] | | | | | | | | +--------+ + + + + | 11/20/ | Implant | Cardiology | Daljit Singletary, | Remote Device | | 2018 | Monitor | | [address] | Interrogation | | | | | [place], | (Primary Dx); | | | | | [place] [address] | Presence of | | | | | [phone] | permanent cardiac | | | | [...] Performed At | + + + | [id number] | | | Page 1 RADIOLOGY | | | CDU 81568/ | | | [facility] | | | CENTER NAME: [place] [address] | | | | | | | | | DATE OF : 1960 ORDER NUMBER: | | | [id number] EXAM DATE/TIME: 05/25/2009 08:00 A ORDERING PHYSICIAN: | | | CHI FANG ORDER DETAIL: [id number] / / [facility] EXAM | | | DESCRIPTION: NM [...] | | administration of 14.9 mCi of wukanndvxv-39u-eminqzj Myoview. Stress | | | images postinjection [...] | | | images. Prone images demonstrate alevism of the inferior wall | | | [...] | | A P | | | [id number]/[id number]/ cc: MD FEMI FOSS, | | | MD CHI FANG, MD AMY BANEGAS DO | | + + + + + | Procedure Note | + + | Kalpesh Brown Conversion - 07/17/2019 2:13 AM PDT | | [id number] Page 1 | | RADIOLOGY CDU 62259/ | | OPO | | [facility] NAME: PINA GAY | | [place] [address] | | | | DATE OF : 1960 | | | | ORDER NUMBER: [id number] | | EXAM DATE/TIME: 05/25/2009 08:00 A [...] administration of 14.9 mCi | | of dzpsdrqzka-96a-xxubndb Myoview. Stress images postinjection of 47.7 | [...] | | | | Prone images demonstrate alevism of the inferior wall nicely. | | [...] | A | | P | | TSG/dc/[id number]/ | | cc: ANGELA MARADIAGA MD | | FEMI MARIE MD | | CHI FANG MD | | AMY BANEGAS DO | + + ECHO Complete (05/25/2009 7:50 AM PDT) + + | Specimen | + + | | + + + + + | Narrative | Performed At | + + + | [id number] | | | Page 1 ECHO [facility] NAME: | | | [place] [address] MEDICAL RECORD #: | | | [id number] | | | DATE OF : 1960 ORDER | | | NUMBER: [id number] EXAM DATE/TIME: 05/25/2009 07:34 PERFORMING | | [...] Excursion: | | | 1.89 cm E-F Bacon: 0.08 m/s HR: 43.51 BPM AV maxP.11 [...] | | | 0.33 m/s TV Dec Bacon: 1.73 m/s2 TV Dec Time: 344.24 ms TV | | | E Bravo: 0.59 m/s TV E/A Ratio: 1.80 TV maxP.40 mmHg TV | | | meanP.44 mmHg TV Vmax: 0.59 m/s TV Vmean: 0.30 m/s TV | | | VTI: 22.88 cm Gas Attendant: ANTHONY Authenticated by: Edwardo Tee | | | Carlos WINKLER Report Date/Time: 05-25-2009 10:19:52 | | + + + + + | Procedure Note | + + | Kalpesh Brown Conversion - 07/17/2019 2:13 AM [facility] [id number] | | [address] [place] [address] NAME: [place] | | [address] : ACCOUNT #: | | [id number]: DATE OF : 1960ORDER NUMBER: | | [id number] DATE/TIME: 05/25/2009 07:34PERFORMING PHYSICIAN: Edwardo Gonzalez | [...] mlLAESV Index (A-L): 26.03 ml/m2LAAs A2C: 14.93 [id number] A-L | | A2C: 44.50 mlLALs A2C: 4.25 cmLAAs A4C: 18.42 [id number] A-L A4C: 55.79 mlLALs | | A4C: 5.16 cmAo Diam: 3.91 cmAV Cusp: 2.23 cmLA Diam: 3.79 cmLA/Ao: 0.96%FS: | | 43.37 %EDV(Teich): 146.19 mlEF(Teich): 73.99 %ESV(Teich): 38.01 mlIVSd: 1.57 | | cmIVSs: 1.79 cmLVIDd: 5.48 cmLVIDs: 3.10 cmLVPWd: 1.32 cmLVPWs: 1.79 | | cmSV(Teich): 108.18 mlD-E Excursion: 1.89 cmE-F Bacon: 0.08 m/sHR: 43.51 BPMAV | | maxP.11 mmHgAV meanP.33 mmHgAV Vmax: 1.74 m/Zabrina Vmean: 1.06 m/Zabrina VTI: | | 35.51 cmAVA Vmax: 2.77 cm2AVA (VTI): 2.54 wz3LONC Dopp: 3.00 l/qpaa9PNZB Dopp: | | 6.33 l/minHR: 70.25 BPMLVOT maxP.78 mmHgLVOT meanP.02 mmHgLVSI Dopp: | | 42.76 ml/m2LVSV Dopp: 90.23 mlLVOT Vmax: 1.30 m/sLVOT Vmean: 0.80 m/sLVOT VTI: | | 24.35 cmMV A Bravo: 0.70 m/sMV DecT: 242.46 msMV E Bravo: 0.91 m/sMV E/A Ratio: | | 1.31MV maxP.40 mmHgMV meanP.82 mmHgMV Vmax: 0.92 m/sMV Vmean: 0.37 m/sMV | | VTI: 26.47 cmMVA (VTI): 3.40 io9Dybpaf e': 0.08 m/sSeptal E/e': 11.24HR: | | 60.55 BPMPV maxP.04 mmHgPV meanP.39 mmHgPV Vmax: 0.87 m/sPV Vmean: 0.55 | | m/sPV VTI: 19.09 cmRAP: 5 mmHgRVSP: 21.72 mmHgTR maxP.72 mmHgTR Vmax: | | 2.04 m/sTV A Bravo: 0.33 m/sTV Dec Bacon: 1.73 m/s2TV Dec Time: 344.24 msTV E Bravo: | | 0.59 m/sTV E/A Ratio: 1.80TV maxP.40 mmHgTV meanP.44 mmHgTV Vmax: 0.59 | | m/sTV Vmean: 0.30 m/sTV VTI: 22.88 cm Gas Attendant: KVWAuthenticated by: Edwardo Tee | | Carlos [...] | |D-E Excursion: 1.89 cm | |E-F Bacon: 0.08 m/s | |HR: 43.51 BPM | [...] A Bravo: 0.33 m/s | |TV Dec Bacon: 1.73 m/s2 | |TV Dec Time: 344.24 ms | |TV E Bravo: 0.59 m/s | |TV E/A Ratio: 1.80 | |TV maxP.40 mmHg | |TV meanP.44 mmHg | |TV Vmax: 0.59 m/s | |TV Vmean: 0.30 m/s | |TV VTI: 22.88 cm | | | |Gas Attendant: KVW | |Authenticated by: Edwardo Gonzalez MD | |Report Date/Time: 05-25-2009 10:19:52 | + + CT Head wo Contrast (05/24/2009 12:58 PM PDT) + + | Specimen | + + | | + + + + + | Narrative | Performed At | + + + | [id number] | | | Page 1 RADIOLOGY | | | CDU 07172/ | | | [facility] | | | CENTER NAME: [place] [address] | | | | | | | | | DATE OF : 1960 ORDER NUMBER: | | | [id number] EXAM DATE/TIME: 05/24/2009 12:47 P ORDERING PHYSICIAN: [...] | | asymmetrically dense vessel about the [place] of [place]. No | | | hydrocephalus. [...] 08:45 P P P | | | [facility]/[id number]/ cc: MD ANGELA AVENDAÑO MD | | | MD AMY HAM DO | | + + + + + | Procedure Note | + + | Kalpesh Brown Conversion - 07/17/2019 2:13 AM PDT | | [id number] Page 1 | | RADIOLOGY CDU 66322/ | | OPO | | [facility] NAME: PINA GAY | | [place] [address] | | | | DATE OF : 1960 | | | | ORDER NUMBER: [id number] | | EXAM DATE/TIME: 05/24/2009 12:47 P [...] is no asymmetrically dense vessel about the [place] of [place]. No | | hydrocephalus. Some [...] | P | | P | | [facility]/tp/[id number]/ | | cc: VINAY HILL MD | | ANGELA MARADIAGA MD | | FEMI MARIE MD | | AMY BANEGAS, DO | + + XR Chest 2 Vws (05/24/2009 11:31 AM PDT) + + | Specimen | + + | | + + + + + | Narrative | Performed At | + + + | [id number] | | | Page 1 RADIOLOGY | | | [facility] [address]/ | | | OPO [facility] | | | CENTER NAME: [place] [address] | | | | | | | | | DATE OF : 1960 ORDER NUMBER: | | | [id number] EXAM DATE/TIME: 05/24/2009 11:19 A ORDERING PHYSICIAN: [...] DT: | | | 05/24/2009 05:38 P [id number]/[id number]/ cc: VINAY HILL MD | | | MD FEMI FOSS MD JOSEPH | | | P BASSAM DO | | + + + + + | Procedure Note | + + | Kalpesh Brown Conversion - 07/17/2019 2:13 AM PDT | | [id number] Page 1 | | RADIOLOGY CDU 65068/ | | OPO | | [facility] NAME: PINA GAY | | [place] [address] | | | | DATE OF : 1960 | | | | ORDER NUMBER: [id number] | | EXAM DATE/TIME: 05/24/2009 11:19 A [...] | P | | P | | [facility]//[id number]/ | | cc: VINAY HILL MD | | ANGELA MARADIAGA MD | | FEMI MARIE MD | | AMY BANEGAS DO | + + documented in this encounter Visit Diagnoses + + | Diagnosis | + + | Chest pain, unspecified | + + documented in this encounter"
--- OUTSIDE RECORDS SUMMARY | ~2019-11-01 | XMS | Encounter Summary ---
Demographics + + + | Address | [address] | | | [place] [address] | + + + | Home Phone [...] Providers + +------+ + | Care Topographical Engineer Name | Role | Phone | [...] | 10/26/ | Refill | [facility] | Kirk French | Medication Refill | | 2019 | | GASTROENTEROLOGY | MD Brea [address] | | | | | [address] [place] | [address] | | | | | [address] [place], [place] | [place] [address] | | | | | [address] | [phone] | | | | | [phone] | | | +--------+--------+ + + + [...] | | | | | | [place] [id number] | | | | | | [phone] | | | | | | | | +--------+ + + + + | 11/20/ | Implant | Cardiology | Daljit Singletary, | Remote Device | | 2018 | Monitor | | MD [address] [place] [address] | Interrogation | | | | | [facility], | (Primary Dx); | | | | | [place] [address] | Presence of | | | | | [phone] | permanent cardiac | | | | [...]
--- OUTSIDE RECORDS SUMMARY | ~2019-11-01 | XMS | Encounter Summary ---
Demographics + + + | Address | [address] | | | [place] [address] | + + + | Home Phone [...] Team Providers + +------+ + | Care Graduate Research Assistant Name | Role | Phone | [...] Provider Unknown | | | | | [place], [place] | [phone] | | | | | [address] | | | | | | [phone] | | | +--------+ + + + [...] | | | | | | | #[id number], exp 07/2016 | | | | | [...] | | | | | | [place] [address] | | | | | | [phone] | | | | | | | | +--------+ + + + + | 11/20/ | Implant | Cardiology | Daljit Singletary, | Remote Device | | 2018 | Monitor | | MD [address]iquis [address] | Interrogation | | | | | [facility], | (Primary Dx); | | | | | [place] [address] | Presence of | | | | | [phone] | permanent cardiac | | | | [...]
--- OUTSIDE RECORDS SUMMARY | ~2019-11-01 | XMS | Encounter Summary ---
Demographics + + + | Address | [address] | | | [place] [address] | + + + | Home Phone [...] Team Providers + +------+ + | Care Caponizer Name | Role | Phone | + [...] + | 06/24/ | Telephone | [facility] | Daljit Singletary, | Lab Order | | 2017 | | CARDIOLOGY [address] | MD [address] | | | | | [place], | [place], | | | | | [place] [address] | [place] [address] | | | | | [phone] | [phone] | | | | | | | [...] | | | | | | [place] [address] | | | | | | [phone] | | | | | | | | +--------+ + + + + | 11/20/ | Implant | Cardiology | Daljit Singletary, | Remote Device | 2018 | Monitor | | [address] [facility] [place] | Interrogation | | | | | 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
--- OUTSIDE RECORDS SUMMARY | ~2019-11-01 | XMS | Encounter Summary ---
Demographics + + + | Address | [address] | | | [place] [address] | + + + | Home Phone [...] + +------+ + | Care Public Health Veterinarian Name | Role | Phone | [...] [address] | | | | | [place], [place] | [place], [place] | | | | | [address] | [address] | | | | | [phone] | | | +--------+ + + + [...] | | | | | | [place] [address] | | | | | | [phone] | | | | | | | | +--------+ + + + + | 11/20/ | Implant | Cardiology | Daljit Singletary, | Remote Device | | 2018 | Monitor | | MD Chiquis Oro | Interrogation | | | | | [place], | (Primary Dx); | | | | | [place] [address] | Presence of | | | | | [phone] | permanent cardiac | | | | [...]
--- OUTSIDE RECORDS SUMMARY | ~2019-11-01 | XMS | Encounter Summary ---
Demographics + + + | Address | [address] | | | [place] [address] | + + + | Home Phone [...] Team Providers + +------+ + | Care Buggyman Name | Role | Phone | + [...] unspecified | [address] | | | | | type | [address] | [place], | | | | | Procedures | [place], | [place] | | | | | [place] | [place] [address] | [address] | | | | | Stress Test | Phone: | Phone: | | | | | (Vasodilator | [phone] | [phone] | | | | | ) CHG | Fax: | Fax: | | | | | MYOCARDIAL | [phone] | [phone] | | | | | SPECT | | | | | | | MULTIPLE | | | | | | | STUDIES [place] | | | | | | | CV STRS TST | | | | | | | XERS&/OR RX | | | | | | | CONT ECG W/O | | | | | | | I&R [place] | | | | | | | [...] unspecified | [address] | [address] | | | | | type | [address] | [place], | | | | | Procedures | [place], | [place] | | | | | [place] | [place] [address] | [address] | | | | | Stress Test | Phone: | Phone: | | | | | (Vasodilator | [phone] | [phone] | | | | | ) CHG | Fax: | Fax: | | | | | MYOCARDIAL | [phone] | [phone] | | | | | SPECT | | | | | | | MULTIPLE | | | | | | | STUDIES [place] | | | | | | | CV STRS TST | | | | | | | XERS&/OR RX | | | | | | | CONT ECG W/O | | | | | | | I&R [place] | | | | | | | [...] + + | 07/21/ | Hospital | [facility] | Daljit Singletary, | Chest pain, | | 2018 | Encounter | MED CTR NUCLEAR | MD [address] | unspecified type | | | | MEDICINE [address] [place], | | | | | [place] | [place] [address] | | | | | [place] [address] | [phone] | | | | | [phone] | | | | | | | Records Management DirectorPavel | | +--------+ + + + + [...] + + + +---------+ + + | [place]-3 Fatty | CAPS, one capsule by [...] | | | | | | [place] [address] | | | | | | [phone] | | | | | | | | +--------+ + + + + | 11/20/ | Implant | Cardiology | Daljit Singletary, | Remote Device | | 2019 | Monitor | | [facility] | Interrogation | | | | | [facility] [address], | (Primary Dx); | | | | | [place] [address] | Presence of | | | | | [phone] | permanent cardiac | | | | [...] | | | doctor, Starting [facility] 07/21/18 at | | | | [...] | | | | Starting [facility] 07/21/18 at 0822, For | | | | | | | 1 dose, Nuclear Medicine | | | | | | + +-------+ + +---+---+ +---+---+ | | | +---+---+ documented in this encounter"
--- OUTSIDE RECORDS SUMMARY | ~2019-11-01 | XMS | Encounter Summary ---
Demographics + + + | Address | [address] | | | [place] [address] | + + + | Home Phone [...] Providers + +------+ + | Care Rn School Name | Role | Phone | + +------+ + | Michael Amanda DO | PCP | | + +------+ + Encounter Details +--------+ + + + + | Date | Type | Department | Care Team | Description | +--------+ + + + + | 01/30/ | Hospital | [facility] | Jay Gambino MD | | | 2012 - | Encounter | [facility]ART [facility] | [address] | | | | | CARDIAC TELEMETRY | [address] [place], | | | 01/31/ | | [address] | [place] [address] | | | 2012 | | [place] | [phone] | | | | | [address] | | | | | | [phone] | | | +--------+ + + + [...] 1960 ADMISSION DATE: 01/30/2013 DISCHARGE DATE: 01/31/2013 [id number] / [id number] ADMITTING DIAGNOSES: 1. Symptomatic PVCs. 2. Sinus [...] 150, 1 to 2 tabs daily. 10. [place]-3 fatty acids 1000 mg b.i.d. MOE GAY ADM:01/30/13 [id number] 01/31/13 DIS [place] DISCHARGE SUMMARY [id number] [facility] Carmela Cuevas PAC B [facility] MD Meena Pleitez THIS REPORT IS CONFIDENTIAL AND NOT TO BE RELEASED WITHOUT PROPER AUTHORIZATION. [facility] 11. Valacyclovir 500 mg daily. B. New medication added: Diltiazem CD 180 a day. FOLLOWUP: The patient has a followup appointment on 03/02/2013 at 10:[address] Niles meza at the [facility] [place], [address]. No heavy lifting or driving times 48 hours. YOANA Barlow MD A P [facility] #[id number] cc: MD Carmela Pleitez PA-C Electronically Signed 02/06/13 1616 LAKESHIA Barlow Electronically Signed 02/20/13 0731 Jay Gambino MD MOE GAY ADM:01/30/13 [id number] 01/31/13 DIS [place] DISCHARGE SUMMARY [id number] [facility] LAKESHIA Barlow B [facility] Jay Gambino MD R THIS REPORT IS CONFIDENTIAL AND NOT TO BE RELEASED WITHOUT PROPER AUTHORIZATION.Electronica lly signed by Jael Brown at 02/20/2013 7:31 AM FRANCYZzCarmela Moncada - 02/01/20 13 8:44 AM PDT PATIENT NAME: MOE GAY Sex/Age: M / 52Y : 1960 ADMISSION DATE: 01/30/2013 DISCHARGE DATE: 01/31/2013 [id number] / [id number] ADMITTING DIAGNOSES: 1. Symptomatic PVCs. 2. Sinus [...] 150, 1 to 2 tabs daily. 10. [place]-3 fatty acids 1000 mg b.i.d. MOE GAY ADM:01/30/13 [id number] 01/31/13 DIS [place] DISCHARGE SUMMARY [id number] [facility] LAKESHIA Barlow B [facility] MD Meena Pleitez THIS REPORT IS CONFIDENTIAL AND NOT TO BE RELEASED WITHOUT PROPER AUTHORIZATION. [facility] 11. Valacyclovir 500 mg daily. B. New medication added: Diltiazem CD 180 a day. FOLLOWUP: The patient has a followup appointment on 03/02/2013 at 10:[address] Niles meza at the [facility] [place], [address]. No heavy lifting or driving times 48 hours. YOANA Barlow MD A P [facility] #[id number] cc: MD Carmela Pleitez PA-C Electronically Signed 02/06/13 1616 LAKESHIA Barlow MOE GAY ADM:01/30/13 [id number] 01/31/13 DIS [place] DISCHARGE SUMMARY [id number] [facility] LAKESHIA Barlow ES B [facility] Jay Gambino MD R THIS REPORT [...] + + + +---------+ + + | [place]-3 Fatty | CAPS, one capsule by | [...] | | | | | | [place] [address] | | | | | | [phone] | | | | | | | | +--------+ + + + + | 11/20/ | Implant | Cardiology | Daljit Singletary, | Remote Device | | 2019 | Monitor | | [address] [facility] | Interrogation | | | | | [address], | (Primary Dx); | | | | | [place] [address] | Presence of | | | | | [phone] | permanent cardiac | | | | [...] [facility] | [address] | [place] [address] | | | [facility] | [...] + | YESSY JONES | [address] | [place] [address] | | | [facility] | [...] + + | Glucose | 113 (H)Comment: Solomon Islander | 65 - 99 mg/dL | SK[place] [...] + | YESSY JONES | [address] | [place] [address] | | | [facility] | | | | | LABORATORY | | | | + + + + + | YESSY JONES | | | | | [facility] | | | | | LABORATORY | | | | + + + + + documented in this encounter Visit Diagnoses Not on filedocumented in this encounter"
--- OUTSIDE RECORDS SUMMARY | ~2019-11-01 | XMS | Encounter Summary ---
Demographics + + + | Address | [address] | | | [place] [address] | + + + | Home Phone [...] [facility] | | | and [...] Team Providers + +------+ + | Care Benzol Operator Name | Role | Phone | + +------+ + PCP | Unavailable | + +------+ + Encounter Details +--------+ + + + + | Date | Type | Department | Care Team | Description | +--------+ + + + + | 02/21/ | [facility] | [facility] | Cristy Braun | | | 2008 | Encounter | MED CTR EMERGENCY | Ronald Adrian MD [address] | | | | [address] | [facility] | | | | | [place] | [place] [address] | | | | | [address] | [phone] | | | | | [phone] | | | +--------+ + + + [...] | | | | | | [place] [address] | | | | | | [phone] | | | | | | | | +--------+ + + + + | 11/20/ | Implant | Cardiology | Dajlit Singletary, | Remote Device | | 2018 | Monitor | | MD Chiquis rOo | Interrogation | | | | | [facility] [address], | (Primary Dx); | | | | | [place] [address] | Presence of | | | | | [phone] | permanent cardiac | | | | [...]
--- OUTSIDE RECORDS SUMMARY | ~2019-11-01 | XMS | Encounter Summary ---
Demographics + + + | Address | [address] | | | [place] [address] | + + + | Home Phone [...] Providers + +------+ + | Care Funeral Pre Arrangement Specialist Name | Role | Phone | + +------+ + | Kirk French MD | PCP | | + +------+ + Encounter Details +--------+ + + + + | Date | Type | Department | Care Team | Description | +--------+ + + + + | 03/15/ | Hospital | [facility] MEDICAL | Conversion | | | 2017 | Encounter | [facility] | Transaction, | | | | | [address] | Provider Unknown | | | | | [address] [place] | [phone] | | | | | [address] | | | | | | [phone] | Kirk French | | | | | | MD Brea [address] | | | | | | [address] [place], | | | | | | [place] [address] | | | | | | [phone] | | | | | | | [...] + + + +---------+ + + | [place]-3 Fatty | CAPS, one capsule by | [...] | | | | | | [place] [address] | | | | | | [phone] | | | | | | | | +--------+ + + + + | 11/20/ | Implant | Cardiology | Daljit Singletary, | Remote Device | | 2019 | Monitor | | [address] [facility] | Interrogation | | | | | [address], | (Primary Dx); | | | | | [place] [address] | Presence of | | | | | [phone] | permanent cardiac | | | | [...]
--- OUTSIDE RECORDS SUMMARY | ~2019-11-01 | XMS | Encounter Summary ---
Demographics + + + | Address | [address] | | | [place] [address] | + + + | Home Phone [...] | [address] [place] | [place] [address] | | | | | [address] | [phone] | | | | | [phone] | | | +--------+ + + + [...] | | | | | | [place] [address] | | | | | | [phone] | | | | | | | | +--------+ + + + + | 11/20/ | Implant | Cardiology | Daljit Singletary, | Remote Device | | 2018 | Monitor | | MD Chiquis [facility] [place] | Interrogation | | | | | [facility], | (Primary Dx); | | | | | [place] [address] | Presence of | | | | | [phone] | permanent cardiac | | | | [...]
--- OUTSIDE RECORDS SUMMARY | ~2019-11-01 | XMS | Encounter Summary ---
Demographics + + + | Address | [address] | | | [place] [address] | + + + | Home Phone [...] Providers + +------+ + | Care Energy Broker Name | Role | Phone | + +------+ + PCP | Unavailable | + +------+ + Encounter Details +--------+ + + + + | Date | Type | Department | Care Team | Description | +--------+ + + + + | 09/12/ | Hospital | [facility] | | | | 1993 | Encounter | [facility] | | | | | | CENTER [address] | | | | | | [place] | | | | | | [address] | | | | | | [phone] | | | +--------+ + + + [...] | | | | | | [place] [address] | | | | | | [phone] | | | | | | | | +--------+ + + + + | 11/20/ | Implant | Cardiology | Daljit Singletary, | Remote Device | | 2018 | Monitor | | [facility] | Interrogation | | | | | [facility], | (Primary Dx); | | | | | [place] [address] | Presence of | | | | | [phone] | permanent cardiac | | | | [...]
--- OUTSIDE RECORDS SUMMARY | ~2019-11-01 | XMS | Encounter Summary ---
Demographics + + + | Address | [address] | | | [place] [address] | + + + | Home Phone [...] Providers + +------+ + | Care Circuit Board Repair Technician Name | Role | Phone [...] | [facility] | [facility] [address] | | | | | IMAGING | Jay THORPE | | | | | [phone] | [place] [address] | | +--------+ + + + + [...] | | | | | | [place] [address] | | | | | | [phone] | | | | | | | | +--------+ + + + + | 11/20/ | Implant | Cardiology | Daljit Singletary, | Remote Device | | 2019 | Monitor | | [facility] | Interrogation | | | | | [facility], | (Primary Dx); | | | | | [place] [address] | Presence of | | | | | [phone] | permanent cardiac | | | | [...] for comparison only - no result from [place]. | | + + + + +---------+ + + | Performing | Address | City/State/Zipcode | Phone Number | | Organization | | | | + +---------+ + + | [facility] | | | | + +---------+ + + documented in this encounter Visit Diagnoses Not on filedocumented in this encounter"
--- OUTSIDE RECORDS SUMMARY | ~2019-11-01 | XMS | Encounter Summary ---
Demographics + + + | Address | [address] | | | [place] [address] | + + + | Home Phone [...] Team Providers + +------+ + | Care Deployment Engineer Name | Role | Phone | [...] | | | | Sinoatrial | Jose, DIESEL ENGINE MECHANIC | [address] | | | | | node | [address] | [place], | | | | | dysfunction | [place] | [place] | | | | | (HCC) | [place], [place] | [address] | | | | | Coronary | [address] | Phone: | | | | | artery | Phone: | [phone] | | | | | disease | [phone] | Fax: | | | | | involving | Fax: | [phone] | | | | | [place] | [phone] | | | | | | coronary | | | | | | | artery of | | | | | | | [place] heart | | | [...] | | | | | | Complete [place] | | | | | | | ECHO HEART | | | | | | | XTHORACIC,[place] | | | | | | | MPLETE W | | | | | | | DOPPLER [place] | | | | | | [...] | | | | Sinoatrial | Jose, DIESEL ENGINE MECHANIC | [address] | | | | | node | [address] | [place], | | | | | dysfunction | [place] | [place] | | | | | ([facility]) | [place], [place] | [address] | | | | | Coronary | [address] | Phone: | | | | | artery | Phone: | [phone] | | | | | disease | [phone] | Fax: | | | | | involving | Fax: | [phone] | | | | | [place] | [phone] | | | | | | coronary | | | | | | | artery of | | | | | | | [place] heart | | | [...] | | | | | | Complete [place] | | | | | | | ECHO HEART | | | | | | | XTHORACIC,[place] | | | | | | | MPLETE W | | | | | | | DOPPLER [place] | | | | | | [...] + + + + | 06/16/ | [facility] | [facility] | Jose Angel, | Sinoatrial node | | 2016 | Encounter | MED CTR ECHO [address] | DIESEL ENGINE MECHANIC [address] | dysfunction (HCC) | | | | [address] [place] | [place], [place] | with symptomatic | | | | [place] [address] | [address] | bradycardia; | | | | [phone] | | Coronary artery | | | | | Juvenal Blake, | disease involving | | | | | Technologist | [place] coronary | | | | | | artery of [place] [...] + + + +---------+ + + | [place]-3 Fatty | CAPS, one capsule by | [...] W | | | | | | [address] [place], | | | | | | [place] [address] | | | | | | [phone] | | | | | | | | +--------+ + + + + | 11/20/ | Implant | Cardiology | Sydni Singletary, | Remote Device | | 2018 | Monitor | | [facility] | Interrogation | | | | | [address] [place], | (Primary Dx); | | | | | [place] [address] | Presence of | | | | | [phone] | permanent cardiac | | | | [...] involving | | | | | | [place] coronary | | | | | | artery of [place] [...] Patient | MEDICAL CENT ER | | [id number] Date of Study 06/16/2016 Number | - IMAGING | | Visit Number [id number] | | | Referring Physician JOSE ARMANDO JOSE Number Date of 1960 | | | Interactive Producer LUIS FERNANDO DUARTE Age | | | 56 year(s) Interpreting | | | GURJIT TROY | | | Management Department Chair SYDNI SINGLETARY, | | | Gender | | | Male Nurse Procedure Type of Study TTE | | | procedure: ECHO Complete. Procedure dateDate: 06/16/2016Start: 10:55 | | | AM Technical Quality: Adequate visualizationStudy Location: Echo | | | LabIndications: CAD [place] CORONARY ARTERY 414.01/ I25.10 and | | [...] BARRY Room Number SARAH | | Patient [id number] Date of Study 06/16/2016 Number Visit Number | | [id number] Referring Physician JOSE ARMANDO GARCIA Number | | Date of 1960 Interactive Producer LUIS FERNANDO DUARTE Age | | 56 year(s) Interpreting GURJIT TROY | | Management Department Chair SYDNI SINGLETARY | | Gender Male NurseProcedureType of Study TTE | | procedure: ECHO Complete.Procedure dateDate: 06/16/2016Start: 10:55 AMTechnical Quality: | | Adequate visualizationStudy Location: Echo LabIndications: CAD N[place] CORONARY ARTERY | | 414.01/ I25.10 and [...] [address] | [place] | [phone] | | [facility] | | [address] | | | - IMAGING | | [...]
--- OUTSIDE RECORDS SUMMARY | ~2019-11-01 | XMS | Encounter Summary ---
Demographics + + + | Address | [address] | | | [place] [address] | + + + | Home Phone [...] + +------+ + | Care Sheet Metal Superintendent Name | Role | Phone | + +------+ + | Kirk French MD | PCP | | + +------+ + Encounter Details +--------+---------+ + + + | Date | Type | Department | Care Team | Description | +--------+---------+ + + + | 01/25/ | Surgery | [facility] | Daljit Singletary, | CV LHC | | 2019 | | MED CTR CV INTRA OP | MD [address] | | | | | [address] | [address] [place], | | | | | [place] | [place] [address] | | | | | [address] | [phone] | | | | | [phone] | | | +--------+---------+ + + + [...] by your healthcare provider Date Last Reviewed: 09/22/201619999926-6134 [employer] [address] [place] [address]. All righ ts reserved. This information is [...] + + + +---------+ + + | [place]-3 Fatty | CAPS, one capsule by | [...] | | | | | | [place], | | | | | | [place] [address] | | | | | | [phone] | | | | | | | | +--------+ + + + + | 11/20/ | Implant | Cardiology | Daljit Singletary, | Remote Device | | 2018 | Monitor | | [facility] | Interrogation | | | | | [place], | (Primary Dx); | | | | | [place] [address] | Presence of | | | | | [phone] | permanent cardiac | | | | [...] (1960) MEDICAL RECORD NUMBER: | | | [id number] OF PROCEDURE: 01/25/2019 STERILIZER MACHINE OPERATOR: Daljit | | | MD [...] Sanchez, (1960) | | OF PROCEDURE: 01/25/2019PRIMARY TRACTOR MECHANIC: Daljit Singletary MD PROCEDURES | | PERFORMED:Coronary [...] in the right radial artery (a normal Kevni's test [...] | Aggressive medical management. | | at 9:33[facility] C[facility] PROVIDER:Kirk French MDFor additional [...] or lesion | | type, unspecified whether los coyotes or transplanted heart | + + documented [...]
--- OUTSIDE RECORDS SUMMARY | ~2019-11-01 | XMS | Encounter Summary ---
Demographics + + + | Address | [address] | | | [place] [address] | + + + | Home Phone [...] Providers + +------+ + | Care Clinical Support Associate Name | Role | Phone | + +------+ + PCP | Unavailable | + +------+ + Encounter Details +--------+ + + + + | Date | Type | Department | Care Team | Description | +--------+ + + + + | 11/14/ | [facility] | William Hirsch | | | 1999 | Encounter | MED CTR EMERGENCY | MD Cristobal [address] | | | | | CENTER [address] | [address] [place] | | | | | [place] | [place] [address] | | | | | [address] | [phone] | | | | | [phone] | | | +--------+ + + + [...] | | | | | | [place] [address] | | | | | | [phone] | | | | | | | | +--------+ + + + + | 11/20/ | Implant | Cardiology | Daljit Singletary, | Remote Device | | 2018 | Monitor | | MD [address] | Interrogation | | | | | [place], | (Primary Dx); | | | | | [place] [address] | Presence of | | | | | [phone] | permanent cardiac | | | | [...]
--- OUTSIDE RECORDS SUMMARY | ~2019-11-01 | XMS | Encounter Summary ---
Demographics + + + | Address | [address] | | | [place] [address] | + + + | Home Phone [...] Providers + +------+ + | Care Thread Checker Name | Role | Phone | [...] 2019 | | GASTROENTEROLOGY | [address], [place] | | | | | [address] [place] | [address] [place], [place] | | | | | [address] [place], [place] | [address] | | | | | [address] | | | | | | [phone] | | | +--------+ + + + [...] [place], | | | | | | [place] [address] | | | | | | [phone] | | | | | | | | +--------+ + + + + | 11/20/ | Implant | Cardiology | Daljit Singletary, | Remote Device | | 2018 | Monitor | | MD [address] | Interrogation | | | | | [place], | (Primary Dx); | | | | | [place] [address] | Presence of | | | | | [phone] | permanent cardiac | | | | [...]
--- OUTSIDE RECORDS SUMMARY | ~2019-11-01 | XMS | Encounter Summary ---
Demographics + + + | Address | [address] | | | [place] [address] | + + + | Home Phone [...] Team Providers + +------+ + | Care B2B Sales Consultant Name | Role | Phone [...] 2019 | | GASTROENTEROLOGY | MD [address] | | | | | [address] | [place] | | | | | [address] [place] | [place] [address] | | | | | [address] | | | | | | [phone] | | | +--------+ + + + [...] | | | | | | [place] [address] | | | | | | [phone] | | | | | | | | +--------+ + + + + | 11/20/ | Implant | Cardiology | Daljit Singletary, | Remote Device | | 2018 | Monitor | | [facility] | Interrogation | | | | | [place], | (Primary Dx); | | | | | [place] [address] | Presence of | | | | | [phone] | permanent cardiac | | | | [...]
--- OUTSIDE RECORDS SUMMARY | ~2019-11-01 | XMS | Encounter Summary ---
Demographics + + + | Address | [address] | | | [place] [address] | + + + | Home Phone [...] Providers + +------+ + | Care Water Conservation Specialist Name | Role | Phone | [...] | 07/30/ | Telephone | [facility] | Michael Amanda, | Results | | 2013 | | [facility]IC[facility] [place] | DO [address] | | | | | [address] | [place] | | | | | [place] | [address] | | | | | [address] | | | | | | [phone] | | | +--------+ + + + [...] | | | | | | [place] [address] | | | | | | [phone] | | | | | | | | +--------+ + + + + | 11/20/ | Implant | Cardiology | Daljit Singletary, | Remote Device | | 2018 | Monitor | | MD [address] | Interrogation | | | | | [place], | (Primary Dx); | | | | | [place] [address] | Presence of | | | | | [phone] | permanent cardiac | | | | [...]
--- OUTSIDE RECORDS SUMMARY | ~2019-11-01 | XMS | Encounter Summary ---
Demographics + + + | Address | [address] | | | [place] [address] | + + + | Home Phone [...] | Author | [facility] | | | [...] Team Providers + +------+ + | Care Athletic Training Internship Name | Role | Phone | [...] | | | | [place] | | [address] Phone: | | | | | CYSTO/URETER | | [phone] | | | | | O | | Fax: | | | | | W/LITHOTRIPS | | [phone] | | | | | Y &INDWELL [...] (Primary | | | | [address] | [place] | Dx); Left ureteral | | | | [place], [place] | [address] | calculus; Kidney | | | | [address] | | stones | | | | [phone] | | | +--------+ + + + [...] Care Everywhere.Kidney Stones, Treating: Ureteroscopic Stone Removal ([place] Islander)Stents, Ureteral ([place] Islander)documented in this encounter Medications at Time of [...] | | | | | | | [place] coronary | | | | | | | artery of [place] | | | | | | | [...] W | | | | | | [place], | | | | | | [place] [address] | | | | | | [phone] | | | | | | | | +--------+ + + + + | 11/20/ | Implant | Cardiology | Daljit Singletary, | Remote Device | | 2018 | Monitor | | [facility] | Interrogation | | | | | [place], | (Primary Dx); | | | | | [place] [address] | Presence of | | | | | [phone] | permanent cardiac | | | | [...] [facility] | | | | | | at:[phone]. | | | | + + + [...] + | Performed at: 01 - [facility] [address] | REFERENCE LAB | | [place], [place] [id number] Archery Equipment Repairer: Yeny Rios MD, Phone: | ARSH CASTANON | | [phone] | | + + + + + + + + | Performing | Address | City/State/Zipcode | Phone Number | | Organization | | | | + + + + + | REFERENCE LAB | [address] | [place] [address] | [phone] | | [facility] | Drive [...] ST. | [address] | [place] | [phone] | | [facility] | | [address] | | | - LABORATORY | | [...] ST. | [address] | [place] | [phone] | | [facility] | | [address] | | | - LABORATORY | | [...] [address] | [place] | [phone] | | [facility] | | [address] | | | - LABORATORY | | [...] ST. | [address] | [place] | [phone] | | [facility] | | [address] | | | - LABORATORY | | [...] | 0.92 | 0.70 - 1.30 | [facility] | | | | | mg/dL | [facility] | | | | | | MEDICAL | | | | | | CENTER - | | | | | | LABORATORY | | + + + + + + | eGFR if not | >60Comment: GLOMERULAR | >=60 | BIM | | | | FILTRATION | mL/min/1.73m2 | [facility] | | | CZECH | RATE,ESTIMATED | | MEDICAL | | | | mL/min/1.50k8Poky than | | CENTER - | | [...] [address] | [place] | [phone] | | [facility] | | [address] | | | - LABORATORY | | [...] day), First | | | dose on [facility] 04/13/19 at 1400, | | | Start 8 hours after pre-op dose., | | | Post-op/Phase II | | + +---+ | | | + +---+ | albuterol 2.5 mg/3 mL nebulizer | | | solution 2.5 mg 2.5 mg, | | | Nebulization, ONCE PRN, Wheezing, | | | Starting [facility] 04/13/19 at 0917, | | | [...] HR < 40, | | | Starting [facility] 04/13/19 at 0917, For | | [...] | | | | | | | rrhdyq-jve-vkgky use of at least | | | [...]
--- OUTSIDE RECORDS SUMMARY | ~2019-11-01 | XMS | Encounter Summary ---
Demographics + + + | Address | [address] | | | [place] [address] | + + + | Home Phone [...] Providers + +------+ + | Care Laboratory Veterinarian Name | Role | Phone | [...] + + | 07/01/ | Hospital | [facility] | Scotty Galdamez, | DDD (degenerative | | 2018 | Encounter | MED CTR XRAY [address] | CORRECTIONAL OFFICER [address] | disc disease), | | | | [place] | [address] | lumbar; Chronic | | | | [place] [address] | [place] [address] | left-sided low back | | | | [phone] | [phone] | pain with left-sided | | | [...] + + + +---------+ + + | [place]-3 Fatty | CAPS, one capsule by | [...] | | | | | | [place] [address] | | | | | | [phone] | | | | | | | | +--------+ + + + + | 11/20/ | Implant | Cardiology | Daljit Singletary, | Remote Device | | 2019 | Monitor | | MD [address] | Interrogation | | | | | [place], | (Primary Dx); | | | | | [place] [address] | Presence of | | | | | [phone] | permanent cardiac | | | | [...]
--- OUTSIDE RECORDS SUMMARY | ~2019-11-01 | XMS | Encounter Summary ---
Demographics + + + | Address | [address] | | | [place] [address] | + + + | Home Phone [...] Providers + +------+ + | Care Manufacturing Controller Name | Role | Phone | [...] | | | | exertion | | [address] [place] | | | | | Chest pain | | [place], [place] | | | | | on exertion | | [address] | | | | | | | Phone: | | | | | | | [phone] | | | | | | | Fax: | | | | | | | [phone] | +--------+--------+ + + + + Encounter Details +--------+ + + + + | Date | Type | Department | Care Team | Description | +--------+ + + + + | 04/27/ | Emergency | [facility] | Martell Hart | Chest pain on | | 2014 - | | MED CTR MEDICAL | Sanjay Palacios MD | exertion (Primary | | | | [address] [place] | [address] | Dx); Dyspnea on | | 03/20/ | | [place] [address] | [place] | exertion; Essential | | 2014 | | [phone] | [address] | hypertension; Acute | | | | | | chest pain; | | | | | Parth Kraft, | Dizziness, | | | | | [address] | nonspecific; Mixed | | | | | [place] | anxiety depressive | | | | | [address] | disorder; PUD | | | | | [phone] | (peptic ulcer | | | | [...] be different f rom the original. [facility] DISCHARGE SUMMARY Pt. Name/Age/: Moe Sanchez [...] 911 aka: NITROSTAT ONE TOUCH DELICA LANCETS [facility] Check glucose as needed [...] Daily. to reduce urinary frequency - Lot #[id number], exp 07/2016 aka: RAPAFLO UNCODED MEDICATION - [...] hospital follow up Contact information: [address] [address] Call PARISA Russell. Specialty: Nurse Practitioner Why: As needed Contact information: [address] [place] [address] Condition: Patient being discharged with condition improved. Diet: Heart healthy, avoid acidic drinks and foods, spicy foods, too much coffee. Greater than 30 minutes were spent on discharge and coordination of post-hospital care. Electronically signed by: Thierry Fregoso DO, 03/20/2015 11:22 [facility] Portions of this chart may have been created with [employer] voice recognition software. Occasi onal wrong-word or [...] afford the prescribed medication, you can try mqqh-ono-cgbxbqa acid blockers, such as Pepcid AC, Tagamet, [...] or as directed by your healthcare provider 2483-1599 [employer]. [address] [place] [address]. All righ ts reserved. This information is [...] + + + +---------+ + + | [place]-3 Fatty | CAPS, one capsule by | [...] | | | | | | | #[id number], exp 07/2016 | | | | | [...] - 03/19/2015 10:[address] [facility] PROGRESS NOTE Patient: Moe Sanchez : 1960: Age: 55 y.o. MedRec: [id number] PCP: Kirk French Admission date: 03/18/2015 Hospital [...] 1708 03/18/15 1528 TROPONINI <0.01 <0.01 0.01 [facility] ECHOCARDIOGRAM REPORT STUDY DATE: [...] changes. No results for input(s): PHART, PO2ART, CQZ7HRK, UIR9VGH, BEART, B7EMMXIZ in the last 168 h ours. No results for input(s): SPECSOURCE, PHPOCB, HCO3, TCO2, BEART, BE, MJON0GWK in the last 16 8 hours. Invalid input(s): EEZAT0DG, GDGL0OY Point of care glucose: No results for [...] minutes today. Thierry Fregoso DO 03/19/2015 22:09 [facility] Portions of this chart may have been created with [employer] voice recognition software. Occasi onal wrong-word or sound-alike substitutions may have occurred due to the inherent granger itations of voice recognition software. Please read the chart carefully and recognize, using context, where these substitutions have occurred Belén Cho RN - 03/19/2015 11:03 AM [id number] Report given to Marlen morejon who is [...] | | | | | | [place] [address] | | | | | | [phone] | | | | | | | | +--------+ + + + + | 11/20/ | Implant | Cardiology | Daljit Singletary, | Remote Device | | 2018 | Monitor | | [facility] | Interrogation | | | | | [place], | (Primary Dx); | | | | | [place] [address] | Presence of | | | | | [phone] | permanent cardiac | | | | [...] Performed At | + + + | [facility] ECHOCARDIOGRAM REPORT | | [...] | | Signed by: Daljit Singletary MD [facility] 03/19/2015 15:44 | | | Shoe Repairer Helper: Dewey Valdez RDMS | | + + [...] | | | | | | [employer] | | | | | [...] [address] | [place] | [phone] | | [facility] | | [address] | | | - LABORATORY | | [...] | mL/min/1.73m2 | MICHELLE | | | PERUVIAN | RATE,ESTIMATED | | MEDICAL | | | | mL/min/1.54m2Xbpv than | | CENTER - | | [...] [address] | [place] | [phone] | | [facility] | | [address] | | | - LABORATORY | | [...] ST. | [address] | [place] | [phone] | | [facility] | | [address] | | | - LABORATORY | | [...] | | | | | | [employer] | | | | | [...] ST. | [address] | [place] | [phone] | | [facility] | | [address] | | | - LABORATORY | | [...] [address] | [place] | [phone] | | [facility] | | [address] | | | - LABORATORY | | [...] [address] | [place] | [phone] | | [facility] | | [address] | | | - LABORATORY | | [...] [address] | [place] | [phone] | | [facility] | | [address] | | | - LABORATORY | | [...] | [facility] | [address] | [place] | [phone] | | [facility] | | [address] | | | - LABORATORY | | [...] | | | | | | [employer] | | | | | [...] + | [address] | [address] | [place] | [phone] | | [facility] | | [address] | | | - LABORATORY | | [...] [address] | [place] | [phone] | | [facility] | | [address] | | | - LABORATORY | | [...] | | | FILTRATION | mL/min/1.73m2 | [facility] | | | PERUVIAN | RATE,ESTIMATED | | MEDICAL | | | | mL/min/1.68s7Ojkj than | | CENTER - | | [...] | [facility] | [address] | [place] | [phone] | | [facility] | | [address] | | | - LABORATORY | | [...] [address] | [place] | [phone] | | [facility] | | [address] | | | - LABORATORY | | [...]
--- OUTSIDE RECORDS SUMMARY | ~2019-11-01 | XMS | Encounter Summary ---
Demographics + + + | Address | [address] | | | [place] [address] | + + + | Home Phone [...] | [facility] | | | [...] Providers + +------+ + | Care Credit Department Manager Name | Role | Phone [...] | | | | CENTER [address] | [place], [place] | (Primary Dx) | | | | [place], [place] | [address] | | | | | [address] | | | | | | [phone] | | | +--------+ + + + [...] + + + +---------+ + + | [place]-3 Fatty | CAPS, one capsule by | [...] W | | | | | | [place], | | | | | | [place] [address] | | | | | | [phone] | | | | | | | | +--------+ + + + + | 11/20/ | Implant | Cardiology | Daljit Singletary, | Remote Device | | 2018 | Monitor | | [facility] | Interrogation | | | | | [place], | (Primary Dx); | | | | | [place] [address] | Presence of | | | | | [phone] | permanent cardiac | | | | [...] | mL/min/1.73m2 | MICHELLE | | | ZAMBIAN | RATE,ESTIMATED | | MEDICAL | | | | mL/min/1.48e8Jauq than | | CENTER - | | [...] ST. | [address] | [place] | [phone] | | [facility] | | [address] | | | - LABORATORY | | [...] | | | | ANGELA MARADIAGA MD ([id number]) | | | | | | on [...] ST. | [address] | [place], [place] | [phone] | | [facility] | | [address] | | | - LABORATORY | | [...] | [address] | [place], [place] | [phone] | | [facility] | | [address] | | | - LABORATORY | | [...]
--- OUTSIDE RECORDS SUMMARY | ~2019-11-01 | XMS | Encounter Summary ---
Demographics + + + | Address | [address] | | | [place] [address] | + + + | Home Phone [...] Providers + +------+ + | Care Laborer [place] Name | Role | Phone | [...] + | 06/24/ | Telephone | [facility] | Daljit Singletary, | Lab Order | | 2017 | | CARDIOLOGY [address] | MD [address] | | | | | [address] [place], | [place], | | | | | [place] [address] | [place] [address] | | | | | [phone] | [phone] | | | | | | | [...] | | | | | | [place] [address] | | | | | | [phone] | | | | | | | | +--------+ + + + + | 11/20/ | Implant | Cardiology | Daljit Singletary, | Remote Device | 2018 | Monitor | | [facility] | Interrogation | | | | | 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
--- OUTSIDE RECORDS SUMMARY | ~2019-11-01 | XMS | Encounter Summary ---
Demographics + + + | Address | [address] | | | [place] [address] | + + + | Home Phone [...] Providers + +------+ + | Care Setter Helper Name | Role | Phone [...] 2012 | | CARDIOLOGY [address] | WOOD STAINER [address] | faxed) | | | | [place], | [place] [facility], [place] | | | | | [place] [address] | [address] | | | | | [phone] | | | +--------+ + + + [...] W | | | | | | [place], | | | | | | [place] [address] | | | | | | [phone] | | | | | | | | +--------+ + + + + | 11/20/ | Implant | Cardiology | Daljit Singletary, | Remote Device | | 2018 | Monitor | | [facility] | Interrogation | | | | | [place], | (Primary Dx); | | | | | [place] [address] | Presence of | | | | | [phone] | permanent cardiac | | | | [...]
--- OUTSIDE RECORDS SUMMARY | ~2019-11-01 | XMS | Encounter Summary ---
Demographics + + + | Address | [address] | | | [place] [address] | + + + | Home Phone [...] Providers + +------+ + | Care Finish Inspector Name | Role | Phone | [...] + + | 12/09/ | Telephone | [facility] | Emmanuel Daniel MD | Appointment (EGD, | | 2017 | | GASTROENTEROLOGY | [address], [place] | colon Rescheduled to | | | | [address] [place] | [address] [place] | December 24 due to | | | | [address] [place] | [address] | illness) | | | | [address] | | | | | | [phone] | | | +--------+ + + + [...] | | | | | | [place] [address] | | | | | | [phone] | | | | | | | | +--------+ + + + + | 11/20/ | Implant | Cardiology | Daljit Singletary, | Remote Device | | 2019 | Monitor | | MD Sim [facility] | Interrogation | | | | | [place], | (Primary Dx); | | | | | [place] [address] | Presence of | | | | | [phone] | permanent cardiac | | | | [...]
--- OUTSIDE RECORDS SUMMARY | ~2019-11-01 | XMS | Encounter Summary ---
Demographics + + + | Address | [address] | | | [place] [address] | + + + | Home Phone [...] Providers + +------+ + | Care Visual Education Director Name | Role | Phone [...] 2019 | | GASTROENTEROLOGY | [address], [place] | | | | | [address] [place] | [address] [place], [place] | | | | | [address] [place], [place] | [address] | | | | | [address] | | | | | | [phone] | | | +--------+ + + + [...] | | | | | | [place] [address] | | | | | | [phone] | | | | | | | | +--------+ + + + + | 11/20/ | Implant | Cardiology | Daljit Singletary, | Remote Device | | 2018 | Monitor | | MD [address] [place] | Interrogation | | | | | [place], | (Primary Dx); | | | | | [place] [address] | Presence of | | | | | [phone] | permanent cardiac | | | | [...]
--- OUTSIDE RECORDS SUMMARY | ~2019-11-01 | XMS | Encounter Summary ---
Demographics + + + | Address | [address] | | | [place] [address] | + + + | Home Phone [...] Providers + +------+ + | Care Manager Family Name | Role | Phone | + [...] + | 07/12/ | Office | [facility] | Michael Amanda, | Preventative health | | 2013 | Visit | [facility] [place] | DO [address] | care (Primary Dx); | | | | [address] | [place], [place] | Prostate cancer | | | | [place] | [address] | screening; | | | | [address] | | Hypercholesterolemia | | | | [phone] | | ; Hypertension; | | | [...] clear cause was found. He has seen pulpwood cutter and has a rechec k plan. Possible [...] | | | | | | [place] [address] | | | | | | [phone] | | | | | | | | +--------+ + + + + | 11/20/ | Implant | Cardiology | Daljit Singletary, | Remote Device | | 2019 | Monitor | | MD Sim [place] | Interrogation | | | | | [place], | (Primary Dx); | | | | | [place] [address] | Presence of | | | | | [phone] | permanent cardiac | | | | [...]
--- OUTSIDE RECORDS SUMMARY | ~2019-11-01 | XMS | Encounter Summary ---
Demographics + + + | Address | [address] | | | [place] [address] | + + + | Home Phone [...] Providers + +------+ + | Care Wood Gang Sawyer Name | Role | Phone | + +------+ + PCP | Unavailable | + +------+ + Encounter Details +--------+ + + + + | Date | Type | Department | Care Team | Description | +--------+ + + + + | 05/28/ | [facility] | Evan Gandara MD | | | 2008 | Encounter | MED CTR LABORATORY | [address] [facility] | | | | | [address] | [place] | | | | | [place] | [address] | | | | | [address] | | | | | | [phone] | | | +--------+ + + + [...] | | | | | | [place] [address] | | | | | | [phone] | | | | | | | | +--------+ + + + + | 11/20/ | Implant | Cardiology | Daljit Singletary, | Remote Device | | 2019 | Monitor | | MD [address] [place] | Interrogation | | | | | [place], | (Primary Dx); | | | | | [place] [address] | Presence of | | | | | [phone] | permanent cardiac | | | | [...]
--- OUTSIDE RECORDS SUMMARY | ~2019-11-01 | XMS | Encounter Summary ---
Demographics + + + | Address | [address] | | | [place] [address] | + + + | Home Phone [...] Team Providers + +------+ + | Care Make Up Operator Helper Name | Role | Phone [...] 2012 | | CARDIOLOGY [address] | CAREER AND GUIDANCE COUNSELOR [address] [place] | | | | | [place], | [place], [place] | | | | | [place] [address] | [address] | | | | | [phone] | | | +--------+ + + + [...] | | | | | | [place] [address] | | | | | | [phone] | | | | | | | | +--------+ + + + + | 11/20/ | Implant | Cardiology | Daljit Singletary, | Remote Device | | 2018 | Monitor | | MD [place] | Interrogation | | | | | [place], | (Primary Dx); | | | | | [place] [address] | Presence of | | | | | [phone] | permanent cardiac | | | | [...]
--- OUTSIDE RECORDS SUMMARY | ~2019-11-01 | XMS | Encounter Summary ---
Demographics + + + | Address | [address] | | | [place] [address] | + + + | Home Phone [...] + +------+ + | Care Civil Engineering Draftsperson Name | Role | Phone | [...] 2019 | | GASTROENTEROLOGY | [address] [place], [place] | | | | | [address] [place] | [address] [place], [place] | | | | | 210 [place], [place] | [address] | | | | | [address] | | | | | | [phone] | | | +--------+ + + + [...] | | | | | | [place] [address] | | | | | | [phone] | | | | | | | | +--------+ + + + + | 11/20/ | Implant | Cardiology | Daljit Singletary, | Remote Device | | 2019 | Monitor | | MD [place] | Interrogation | | | | | [place], | (Primary Dx); | | | | | [place] [address] | Presence of | | | | | [phone] | permanent cardiac | | | | [...]
--- OUTSIDE RECORDS SUMMARY | ~2019-11-01 | XMS | Encounter Summary ---
Demographics + + + | Address | [address] | | | [place] [address] | + + + | Home Phone [...] Providers + +------+ + | Care Medical Accountant Name | Role | Phone | [...] | | | | [place] | [address] | | | | | [address] | | | | | | [phone] | | | +--------+ + + + [...] | | | | | [place], | | | | | | [place] [address] | | | | | | [phone] | | | | | | | | +--------+ + + + + | 11/20/ | Implant | Cardiology | Daljit Singletary, | Remote Device | | 2018 | Monitor | | MD [place] | Interrogation | | | | | [place], | (Primary Dx); | | | | | [place] [address] | Presence of | | | | | [phone] | permanent cardiac | | | | [...]
--- OUTSIDE RECORDS SUMMARY | ~2019-11-01 | XMS | Encounter Summary ---
Demographics + + + | Address | [address] | | | [place] [address] | + + + | Home Phone [...] Team Providers + +------+ + | Care Infirmary Attendant Name | Role | Phone | + +------+ + PCP | Unavailable | + +------+ + Encounter Details +--------+ + + + + | Date | Type | Department | Care Team | Description | +--------+ + + + + | 06/03/ | Hospital | [facility] | | | | 2008 | Encounter | MED CTR EMERGENCY | | | | | | [place] [address] | | | | | | [place] | | | | | | [address] | | | | | | [phone] | | | +--------+ + + + [...] | | | | | | [place] [address] | | | | | | [phone] | | | | | | | | +--------+ + + + + | 11/20/ | Implant | Cardiology | Daljit Singletary, | Remote Device | | 2018 | Monitor | | [address] [facility] | Interrogation | | | | | [place], | (Primary Dx); | | | | | [place] [address] | Presence of | | | | | [phone] | permanent cardiac | | | | [...]
--- OUTSIDE RECORDS SUMMARY | ~2019-11-01 | XMS | Encounter Summary ---
Demographics + + + | Address | [address] | | | [place] [address] | + + + | Home Phone [...] Team Providers + +------+ + | Care Dispensary Technician Name | Role | Phone | + +------+ + | Kirk French MD | PCP | | + +------+ + Encounter Details +--------+ + + + + | Date | Type | Department | Care Team | Description | +--------+ + + + + | 10/25/ | Hospital | [facility] | Kirk French | Aneurysm (HCC) | | 2017 | Encounter | MED CTR ULTRASOUND | D, MD [address] | | | | | [address] [place] | [address] | | | | | [place], [place] | [place] [address] | | | | | [address] | [phone] | | | | | [phone] | | | | | | | [...] + + + +---------+ + + | Spencer-3 Fatty | CAPS, one capsule by | [...] | | | | | | [place] [address] | | | | | | [phone] | | | | | | | | +--------+ + + + + | 11/20/ | Implant | Cardiology | Daljit Singletary, | Remote Device | | 2019 | Monitor | | [address] [facility] | Interrogation | | | | | [place], | (Primary Dx); | | | | | [place] [address] | Presence of | | | | | [phone] | permanent cardiac | | | | [...]
--- OUTSIDE RECORDS SUMMARY | ~2019-11-01 | XMS | Encounter Summary ---
Demographics + + + | Address | [address] | | | [place] [address] | + + + | Home Phone [...] Providers + +------+ + | Care Process Artist Name | Role | Phone | [...] 2016 | | CARDIOLOGY [address] | PLANT TAXONOMY TEACHER [address] | | | | | [place], | [place], [place] | | | | | [place] [address] | [address] | | | | | [phone] | | | +--------+--------+ + + + [...] | | | | | | [place], | | | | | | [place] [address] | | | | | | [phone] | | | | | | | | +--------+ + + + + | 11/20/ | Implant | Cardiology | Daljit Singletary, | Remote Device | | 2018 | Monitor | | [address] [place] [address] | Interrogation | | | | | [place], | (Primary Dx); | | | | | [place] [address] | Presence of | | | | | [phone] | permanent cardiac | | | | [...]
--- OUTSIDE RECORDS SUMMARY | ~2019-11-01 | XMS | Encounter Summary ---
Demographics + + + | Address | [address] | | | [place] [address] | + + + | Home Phone [...] Team Providers + +------+ + | Care Curing Pickling Packer Name | Role | Phone | [...] [address] | | | | | [place], | [place], | | | | | [place] [address] | [place] [address] | | | | | [phone] | [phone] | | | | | | | [...] | | | | | | [place] [address] | | | | | | [phone] | | | | | | | | +--------+ + + + + | 11/20/ | Implant | Cardiology | Daljit Singletary, | Remote Device | | 2018 | Monitor | | [address] [facility] | Interrogation | | | | | [place], | (Primary Dx); | | | | | [place] [address] | Presence of | | | | | [phone] | permanent cardiac | | | | [...]
--- OUTSIDE RECORDS SUMMARY | ~2019-11-01 | XMS | Encounter Summary ---
Demographics + + + | Address | [address] | | | [place] [address] | + + + | Home Phone [...] [address] | | | | | | [place], [place] | (Fax) | | | | | [address] | | | | | | [phone] | | | +--------+ + + + [...] | | | | | | [place] [address] | | | | | | [phone] | | | | | | | | +--------+ + + + + | 11/20/ | Implant | Cardiology | Daljit Singletary, | Remote Device | | 2018 | Monitor | | [address] [facility] | Interrogation | | | | | [place], | (Primary Dx); | | | | | [place] [address] | Presence of | | | | | [phone] | permanent cardiac | | | | [...]
--- OUTSIDE RECORDS SUMMARY | ~2019-11-01 | XMS | Encounter Summary ---
Demographics + + + | Address | [address] | | | [place] [address] | + + + | Home Phone [...] Providers + +------+ + | Care Electronic Scanner Operator Name | Role | Phone | + +------+ + | Kirk French MD | PCP | | + +------+ + Encounter Details +--------+ + + + + | Date | Type | Department | Care Team | Description | +--------+ + + + + | 06/03/ | Hospital | [facility] | Conversion | Back pain, | | 2014 | Encounter | CONVERSION DEP [address] | Transaction, | unspecified location | | | | [address] | Provider Unknown | | | | | [place], [place] | [phone] | | | | | [address] | (Fax) | | | | | [phone] | | | +--------+ + + + [...] + + + +---------+ + + | [place]-3 Fatty | CAPS, one capsule by | [...] | | | | | | | #[id number], exp 07/2016 | | | | | [...] | | | | | | [place] [address] | | | | | | [phone] | | | | | | | | +--------+ + + + + | 11/20/ | Implant | Cardiology | Daljit Singletary, | Remote Device | | 2019 | Monitor | | MD [address] [place] | Interrogation | | | | | [place], | (Primary Dx); | | | | | [place] [address] | Presence of | | | | | [phone] | permanent cardiac | | | | [...]
--- OUTSIDE RECORDS SUMMARY | ~2019-11-01 | XMS | Encounter Summary ---
Demographics + + + | Address | [address] | | | [place] [address] | + + + | Home Phone [...] Team Providers + +------+ + | Care Shoddy Mill Worker Name | Role | Phone [...] | Visit | CARDIOLOGY [address] | OYSTER FLOATER [address] | Dx) | | | | [place], | [place], [place] | | | | | [place] [address] | [address] | | | | | [phone] | | | +--------+---------+ + + + [...] Sanchez Date: December 21, 2012 : 1960 Compounding Pharmacy Technician: PARISA Velazquez Device Aviation Warfare Systems Operator: Medtronic Sense (mV) Impedance (?) Capture (V) Capture (ms) A Lead 4-5.6 423 1.5 0.09 RV Lead >31.36 539 2.0 0.09 LV Lead Battery Impedance (?): 301 Battery Voltage (V): 2.8 SC Interval (ms): 140 AR Interval (ms): 210 VA Conduction: Mode Switch Events: N/A % of time: -LIFE INSURANCE AGENT: 0.6 AP-LIFE INSURANCE AGENT: 1.3 -VS: 23.9 AP-VS: 74.2 LIFE INSURANCE AGENT: Magnetic Rate: 85 LINDA: 65 LEAH: Current [...] | | | | | | [place] [address] | | | | | | [phone] | | | | | | | | +--------+ + + + + | 11/20/ | Implant | Cardiology | Gemini Shaistakenneth, | Remote Device | | 2019 | Monitor | | MD [address] [facility] | Interrogation | | | | | [place], | (Primary Dx); | | | | | [place] [address] | Presence of | | | | | [phone] | permanent cardiac | | | | [...]
--- OUTSIDE RECORDS SUMMARY | ~2019-11-01 | XMS | Encounter Summary ---
Demographics + + + | Address | [address] | | | [place] [address] | + + + | Home Phone [...] Providers + +------+ + | Care Motor Operator Name | Role | Phone | + +------+ + PCP | Unavailable | + +------+ + Encounter Details +--------+ + + + + | Date | Type | Department | Care Team | Description | +--------+ + + + + | 12/16/ | Hospital | [facility] | | | | 2010 | Encounter | MED CTR LABORATORY | | | | | | [address] | | | | | | [place] | | | | | | [address] | | | | | | [phone] | | | +--------+ + + + [...] | | | | | | [place] [address] | | | | | | [phone] | | | | | | | | +--------+ + + + + | 11/20/ | Implant | Cardiology | Daljit Singletary, | Remote Device | | 2018 | Monitor | | [address] [facility] | Interrogation | | | | | [place], | (Primary Dx); | | | | | [place] [address] | Presence of | | | | | [phone] | permanent cardiac | | | | [...]
--- OUTSIDE RECORDS SUMMARY | ~2019-11-01 | XMS | Encounter Summary ---
Demographics + + + | Address | [address] | | | [place] [address] | + + + | Home Phone [...] Team Providers + +------+ + | Care Drawer Hardware Worker Name | Role | Phone | [...] + + | 10/01/ | Office | [facility] | Mary Bradshaw | Injury of left foot, | | 2013 | Visit | CARE [address] | Guy Larkin MD | initial encounter | | | | [place] | [address] | (Primary Dx) | | | | [address] | [place] | | | | | [phone] | [address] | | | | | | | [...] minutes 3-[address] daily p er Dr[address] Bradsahw. Patient voiced understanding. Electronically signed by Kitty Montoya at 12:57 PM Renetta Cruz RN - 10/01/2014 3:17 PM PSTPatient left before visit c abdilete, stating he has been here for three and half hours. He states he needs to chicken picker hi s spouse. I provided patient with Dr. Bradley's card so he may contact us for results. Patient's best phone number: [phone] Renetta Lockwood RN ary [place] MD - [...] | | | | | | [place] [address] | | | | | | [phone] | | | | | | | | +--------+ + + + + | 11/20/ | Implant | Cardiology | Daljit Singletary, | Remote Device | 2018 | Monitor | | [facility] | Interrogation | | | | | [place], | (Primary Dx); | | | | | [place] [address] | Presence of | | | | | [phone] | permanent cardiac | | | | [...] + | MISCELLANEOUS LAB | | | [phone] | + +---------+ + + | MISCELANIOUS LAB | | | [phone] | + +---------+ + + documented in this encounter Visit Diagnoses + + | Diagnosis | + + | Injury of left foot, initial encounter - Primary | + + documented in this encounter
--- OUTSIDE RECORDS SUMMARY | ~2019-11-01 | XMS | Encounter Summary ---
Demographics + + + | Address | [address] | | | [place] [address] | + + + | Home Phone [...] [place] [address] | | | | | [address] | [place] | | | | | [phone] | [address] | | | | | | [phone] | | | | | | | [...] Notes by Kylah Fraser CMA at 04/11/18 1168 Author: Kylah Fraser CMA Service: (none) Author Type: Area Field Worker Filed: 04/19/18 1118 Encounter Date: 04/11/2018 Status: Signed Taste Tester: Kylah Fraser CMA (Area Field Worker) See telephone encounter 04/19/18. Karen pfeiffer in this encounter Plan of Treatment +--------+ + + + + | Date | Type | Specialty | Care Team | Description | +--------+ + + + + | 11/09/ | Office | Cardiology | Silvia, | | | 2019 | Visit | | PARISA [place] [address] | | | | | | [place], | | | | | | [place] [address] | | | | | | [phone] | | | | | | | | +--------+ + + + + | 11/20/ | Implant | Cardiology | Daljit Singletary, | Remote Device | | 2018 | Monitor | | MD [address] [place] | Interrogation | | | | | [place], | (Primary Dx); | | | | | [place] [address] | Presence of | | | | | [phone] | permanent cardiac | | | | [...]
--- OUTSIDE RECORDS SUMMARY | ~2019-11-01 | XMS | Encounter Summary ---
Demographics + + + | Address | [address] | | | [place] [address] | + + + | Home Phone [...] Providers + +------+ + | Care Brush Cleaner Name | Role | Phone | [...] | CARDIOLOGY [address] | [address] [place] | (Primary Dx); | | | | [place], | [place], | Tachycardia; | | | | [place] [address] | [place] [address] | Coronary artery | | | | [phone] | [phone] | disease involving | | | | | | [place] coronary | | | | | | artery of [place] | | | | | | heart [...] | | | | | | [place] [address] | | | | | | [phone] | | | | | | | | +--------+ + + + + | 11/20/ | Implant | Cardiology | Daljit Singletary, | Remote Device | | 2019 | Monitor | | MD [address] [place] | Interrogation | | | | | [place], | (Primary Dx); | | | | | [place] [address] | Presence of | | | | | [phone] | permanent cardiac | | | | [...] involving | | | | | | [place] coronary | | | | | | artery of [place] | | | | | | heart [...] DALJIT | | | | | | ([id number]) on 06/29/2018 | | | | | [...] + + | Coronary artery disease involving [place] coronary artery of [place] heart without | | angina pectoris | + + | Hypertension, unspecified type | + + documented in this encounter"
--- OUTSIDE RECORDS SUMMARY | ~2019-11-01 | XMS | Encounter Summary ---
Demographics + + + | Address | [address] | | | [place] [address] | + + + | Home Phone [...] + +------+ + | Care Auto Parts Salesperson Name | Role | Phone | [...] 2019 | | GASTROENTEROLOGY | [address], [place] | Syndrome | | | | [address] [place] | [address] [place], [place] | | | | | [address] [place], [place] | [address] | | | | | [address] | | | | | | [phone] | | | +--------+ + + + [...] | | | | | | [place] [address] | | | | | | [phone] | | | | | | | | +--------+ + + + + | 11/20/ | Implant | Cardiology | Daljit Singletary, | Remote Device | | 2018 | Monitor | | MD [address] [place] | Interrogation | | | | | [place], | (Primary Dx); | | | | | [place] [address] | Presence of | | | | | [phone] | permanent cardiac | | | | [...]
--- OUTSIDE RECORDS SUMMARY | ~2019-11-01 | XMS | Encounter Summary ---
Demographics + + + | Address | [address] | | | [place] [address] | + + + | Home Phone [...] Team Providers + +------+ + | Care Vibratory Pile Driver Name | Role | Phone | + +------+ + PCP | Unavailable | + +------+ + Encounter Details +--------+ + + + + | Date | Type | Department | Care Team | Description | +--------+ + + + + | 02/28/ | [facility] | [facility] | Geri Angel, | | | 2011 | Encounter | MED CTR XRAY [address] | MANAGEMENT TECHNICIAN [address] | | | | | [place] | St [place] | | | | | [place] [address] | [address] | | | | | [phone] | | | +--------+ + + + [...] | | | | | | [place] [address] | | | | | | [phone] | | | | | | | | +--------+ + + + + | 11/20/ | Implant | Cardiology | Daljit Singletary, | Remote Device | | 2019 | Monitor | | [address] [place] [address] | Interrogation | | | | | [place], | (Primary Dx); | | | | | [place] [address] | Presence of | | | | | [phone] | permanent cardiac | | | | [...] [facility] Diagnostic Imaging Department | [place] | | [address] [facility] | [facility] | | LEFT HEART CATHETERIZATION | DIAG [...] was taken to | | | Cardiac Weigh Boss. He was prepared and draped in the usual fashion | | | under a sterile technique and local anesthesia, percutaneous access | | | was obtained using #6- Austrian sheath in the right femoral artery. | | | Right heart cath was not performed in this patient. Left | | | ventriculography was performed using #6-Austrian pigtail catheter. | | | The selective coronary angiography were then performed in several | | | sagittal and oblique projection using the 6-Austrian JL 4 and #6 Austrian | | | 3DRC diagnostic catheters. The [...] Transcribed | | | Date/Time: 02/29/2012 09:09 Automobile Service Station Manager: | | | <Electronically Signed by Daljit Singletary MD [facility]> 02/29/12 | | | 1002 | | + + + + + | Procedure Note | + + | Kevin, Rad Conversion - 12/29/2013 5:04 PM [facility] | | Diagnostic Imaging Department | | [address] [place] | | | | | | [...] patient was taken to Cardiac | | Weigh Boss. He was prepared and draped in the usual fashion under a sterile | | technique and local anesthesia, percutaneous access was obtained using #6- | | Austrian sheath in the right femoral artery. Right heart cath was not performed | | in this patient. Left ventriculography was performed using #6-Austrian pigtail | | catheter. The selective coronary angiography were then performed in several | | sagittal and oblique projection using the 6-Austrian JL 4 and #6 Austrian 3DRC | | diagnostic catheters. The patient [...] | Transcribed Date/Time: 02/29/2012 09:09 | | Automobile Service Station Manager: | | <Electronically Signed by Daljit Singletary MD [facility]> 02/29/12 1002 | + + [...]
--- OUTSIDE RECORDS SUMMARY | ~2019-11-01 | XMS | Encounter Summary ---
Demographics + + + | Address | [address] | | | [place] [address] | + + + | Home Phone [...] Providers + +------+ + | Care Manager Traffic Name | Role | Phone | + +------+ + PCP | Unavailable | + +------+ + Encounter Details +--------+ + + + + | Date | Type | Department | Care Team | Description | +--------+ + + + + | 06/17/ | Hospital | [facility] | | | | 2008 | Encounter | MED CTR EMERGENCY | | | | | | [place] [address] | | | | | | [place] | | | | | | [address] | | | | | | [phone] | | | +--------+ + + + [...] | | | | | | [place] [address] | | | | | | [phone] | | | | | | | | +--------+ + + + + | 11/20/ | Implant | Cardiology | Daljit Singletary, | Remote Device | | 2018 | Monitor | | [facility] | Interrogation | | | | | [place], | (Primary Dx); | | | | | [place] [address] | Presence of | | | | | [phone] | permanent cardiac | | | | [...]
--- OUTSIDE RECORDS SUMMARY | ~2019-11-01 | XMS | Encounter Summary ---
Demographics + + + | Address | [address] | | | [place] [address] | + + + | Home Phone [...] Team Providers + +------+ + | Care Expedition Supervisor Name | Role | Phone | [...] + + | 12/29/ | [facility] | [facility] | [place], | Ascending thoracic | | 2017 | Visit | CARDIOLOGY [address] | [place] [address] | aortic aneurysm | | | | [place], | [place], | (HCC) (Primary Dx); | | | | [place] [address] | [place] [address] | Coronary artery | | | | [phone] | [phone] | disease involving | | | | | | ton[place]anda coronary | | | | | | artery of [place] | | | | | | heart [...] of non-critical coronary artery d isease involving [place] coronary artery of [place] heart without angina pectoris, essential h ypertension, [...] start Losartan 25 mg once every day, [facility] blood pressure log, and follow up in 3 months. Since that time, he went to the ER in [facility] with chest pain at the end of [...] Preventative health care Coronary artery disease involving ton[place] coronary artery of [place] heart without angina pectoris Cannabis abuse, daily [...] 3RD DOSE, CALL 911 100 tablet 3 [place]-3 Fatty Acids (SALMON OIL-1000 PO) CAPS, one [...] was found Confirmed by SYDNI SINGLETARY MD ([id number]) on 06/23/2016 2:08:15 PM LAB RESULTS reviewed [...] He is in class I of the [place] 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 On physical examination there are no signs of fl uid overload. 2. Non-critical Coronary artery disease involving ton[place] coronary a rtery of ton[place] heart without angina pectoris: A. Normal exercise [...] to go back in 3 days to [place] for an attempt of ablation under general [...] is a normal stable device function. Estimated AB Groupi ng battery longevity is 5 years.. 5. Lightheadedness and dizziness/ presyncope: A. Episode of presyncope 05/28/10 [facility], thought to have vasovagal symptoms. 6. [...] this chart may have been created with [employer]Lift voice recognition software. Occasi onal wrong-word or [...] | | | | | | [place] [address] | | | | | | [phone] | | | | | | | | +--------+ + + + + | 11/20/ | Implant | Cardiology | Sydni Singletary, | Remote Device | | 2019 | Monitor | | MD [address] | Interrogation | | | | | [place], | (Primary Dx); | | | | | [place] [address] | Presence of | | | | | [phone] | permanent cardiac | | | | [...] + + | Coronary artery disease involving tonawanda coronary artery of tonawanda heart without | | angina pectoris | + + | Essential hypertension with goal blood pressure less than 130/80 | + + | Hyperlipidemia, mixed Mixed hyperlipidemia | + + documented in this encounter
--- OUTSIDE RECORDS SUMMARY | ~2019-11-01 | XMS | Encounter Summary ---
Demographics + + + | Address | [address] | | | [place] [address] | + + + | Home Phone [...] Team Providers + +------+ + | Care Biological Engineer Name | Role | Phone | [...] CARDIOLOGY [address] | MD [address] | Interrogation | | | | [place], | [place], | (Primary Dx); | | | | [place] [address] | [place] [address] | Pacemaker; | | | | [phone] | [phone] | Sinoatrial node | | | | [...] | | | | | | [place] [address] | | | | | | [phone] | | | | | | | | +--------+ + + + + | 11/20/ | Implant | Cardiology | Daljit Singletary, | Remote Device | | 2019 | Monitor | | MD [facility] | Interrogation | | | | | [place], | (Primary Dx); | | | | | [place] [address] | Presence of | | | | | [phone] | permanent cardiac | | | | [...] remote PDF scanned into | | | [facility] for remote interrogation results. Data [...]
--- OUTSIDE RECORDS SUMMARY | ~2019-11-01 | XMS | Encounter Summary ---
Demographics + + + | Address | [address] | | | [place] [address] | + + + | Home Phone [...] Providers + +------+ + | Care Soil Science Professor Name | Role | Phone [...] | CARDIOLOGY [address] | [address] | Interrogation | | | | [place] [employer], | [place] [employer] [place], | (Primary Dx); | | | | [place] [address] | [place] [address] | Pacemaker; | | | | [phone] | [phone] | Sinoatrial node | | | | [...] | | | | | | [place] [address] | | | | | | [phone] | | | | | | | | +--------+ + + + + | 11/20/ | Implant | Cardiology | Daljit Singletary, | Remote Device | | 2019 | Monitor | | MD [address] | Interrogation | | | | | [place], | (Primary Dx); | | | | | [place] [address] | Presence of | | | | | [phone] | permanent cardiac | | | | [...] remote PDF scanned into | | | [facility] for remote interrogation results. Data [...]
--- OUTSIDE RECORDS SUMMARY | ~2019-11-01 | XMS | Encounter Summary ---
Demographics + + + | Address | [address] | | | [place] [address] | + + + | Home Phone [...] | Orders Only | YESSY KIM | [place], | Mixed hyperlipidemia | | 2016 | | MED CTR LABORATORY | PARISA [place] [address] | (Primary Dx) | | | | [address] [place] | [place], | | | | | [place] | [place] [address] | | | | | [address] | [phone] | | | | | [phone] | | | +--------+ + + + [...] W | | | | | | [place], | | | | | | [place] [address] | | | | | | [phone] | | | | | | | | +--------+ + + + + | 11/20/ | Implant | Cardiology | Daljit Singletary, | Remote Device | | 2018 | Monitor | | [place] [address] [facility] | Interrogation | | | | | [place], | (Primary Dx); | | | | | [place] [address] | Presence of | | | | | [phone] | permanent cardiac | | | | [...]
--- OUTSIDE RECORDS SUMMARY | ~2019-11-01 | XMS | Encounter Summary ---
Demographics + + + | Address | [address] | | | [place] [address] | + + + | Home Phone [...] + + + + | 06/25/ | [facility] | [facility] | Daljit Singletary, | | | 2008 | Encounter | MED CTR XRAY [address] | [address] | | | | | [place] | [place], | | | | | [place] [address] | [place] [address] | | | | | [phone] | [phone] | | | | | | | [...] | | | | | | [place] [address] | | | | | | [phone] | | | | | | | | +--------+ + + + + | 11/20/ | Implant | Cardiology | Daljit Singletary, | Remote Device | | 2019 | Monitor | | MD [address] | Interrogation | | | | | [place], | (Primary Dx); | | | | | [place] [address] | Presence of | | | | | [phone] | permanent cardiac | | | | [...]
--- OUTSIDE RECORDS SUMMARY | ~2019-11-01 | XMS | Encounter Summary ---
Demographics + + + | Address | [address] | | | [place] [address] | + + + | Home Phone [...] | | 2013 | | [facility] | DO [address] | | | | | [address] | [place] | | | | | [place] | [address] | | | | | [address] | | | | | | [phone] | | | +--------+ + + + [...] | | | | | | [place] [address] | | | | | | [phone] | | | | | | | | +--------+ + + + + | 11/20/ | Implant | Cardiology | Daljit Singletary, | Remote Device | | 2019 | Monitor | | MD [address] [facility] | Interrogation | | | | | [place], | (Primary Dx); | | | | | [place] [address] | Presence of | | | | | [phone] | permanent cardiac | | | | [...] + | [facility] | [address] | [place] | [phone] | | [facility] | | [address] | | | - LABORATORY | | | | + + + + + | [facility] | [address] | [place] | | | [facility] | | [address] | | | - LABORATORY | | [...] | | | | | | | Tristanian, | | | | | | External [...]
--- OUTSIDE RECORDS SUMMARY | ~2019-11-01 | XMS | Encounter Summary ---
Demographics + + + | Address | [address] | | | [place] [address] | + + + | Home Phone [...] Providers + +------+ + | Care Inspector Wire Products Name | Role | Phone | [...] | 2018 | Changes | GASTROENTEROLOGY | Director Commercial Sales | | | | | [address] [facility] | | | | | | [address] [place] | | | | | | [address] | | | | | | [phone] | | | +--------+ + + + [...] | | | | | | [place] [address] | | | | | | [phone] | | | | | | | | +--------+ + + + + | 11/20/ | Implant | Cardiology | Daljit Singletary, | Remote Device | | 2018 | Monitor | | [address] | Interrogation | | | | | [place], | (Primary Dx); | | | | | [place] [address] | Presence of | | | | | [phone] | permanent cardiac | | | | [...]
--- OUTSIDE RECORDS SUMMARY | ~2019-11-01 | XMS | Encounter Summary ---
Demographics + + + | Address | [address] | | | [place] [address] | + + + | Home Phone [...] Providers + +------+ + | Care Game Bird Farmer Name | Role | Phone | [...] | | | | CENTER [address] | [place] | (Primary Dx) | | 07/28/ | | [place] | [address] | | | 2017 | | [address] | | | | | | [phone] | | | +--------+ + + + [...] sent through Care Everywhere.Chest Pain, Non cardiac (Bangladeshi)documented in this encounter Medications at Time of [...] | | | | | | [place] [address] | | | | | | [phone] | | | | | | | | +--------+ + + + + | 11/20/ | Implant | Cardiology | Daljit Singletary, | Remote Device | | 2018 | Monitor | | MD [address] | Interrogation | | | | | [facility], | (Primary Dx); | | | | | [place] [address] | Presence of | | | | | [phone] | permanent cardiac | | | | [...] W?MRN: | | | | | | [id number] | | | [id number] | | | his | | | [...] | | | ent/60 | | | [id number] | | | -5586- | | | [...] | | | St. | | | [place] | | | y | | | [...] | | | ext. | | | [address] | | | or go | | [...] | | | M.D. | | | Curing Supervisor | | | al | | [...] | | | | | | [employer] | | | | | [...] + | [facility] | [address] | [place] | [phone] | | [facility] | | [address] | | | - LABORATORY | | [...] | [facility] | | | FILIPINO | RATE,ESTIMATED | | MEDICAL | | | | mL/min/1.85n5Tkgf than | | CENTER - | | [...] [address] | [place] | [phone] | | [facility] | | [address] | | | - LABORATORY | | [...] + | [facility] | [address] | [place] | [phone] | | [facility] | | [address] | | | - LABORATORY | | [...] | | | | ANGELA MARADIAGA MD ([id number]) | | | | | | on [...]
--- OUTSIDE RECORDS SUMMARY | ~2019-11-01 | XMS | Encounter Summary ---
Demographics + + + | Address | [address] | | | [place] [address] | + + + | Home Phone [...] Providers + +------+ + | Care Executive Producer Promos Name | Role | Phone | + [...] [place], [place] | | | | | [place] | | [address] Phone: | | | | | CYSTO/URETER | | [phone] | | | | | O | | Fax: | | | | | W/LITHOTRIPS | | [phone] | | | | | Y &INDWELL [...] + + | 04/13/ | Surgery | [facility] | Matthew Uriarte | Cystoscopy, Left | | 2018 | | MED CTR OR INTRA OP | Dahl, MD [address] | ureteroscopy with | | | | [address] | [place] | laser lithotripsy, | | | | [place], [place] | [address] | Left ureteral stent | | | | [address] | | placement | | | | [phone] | | | +--------+---------+ + + + [...] Care Everywhere.Kidney Stones, Treating: Ureteroscopic Stone Removal (Scottish)Stents, Ureteral (Scottish)documented in this encounter Medications at Time of [...] + + + +---------+ + + | Laura-3 Fatty | CAPS, one capsule by | [...] | | | | | | | [place] coronary | | | | | | | artery of [place] | | | | | | | [...] | | | | | | [place] [address] | | | | | | [phone] | | | | | | | | +--------+ + + + + | 11/20/ | Implant | Cardiology | Daljit Singletary, | Remote Device | | 2018 | Monitor | | [address] [facility] | Interrogation | | | | | [place], | (Primary Dx); | | | | | [place] [address] | Presence of | | | | | [phone] | permanent cardiac | | | | [...] [facility] | | | | | | at:[phone]. | | | | + + + [...] [address], | REFERENCE LAB | | [place], [place] [address] [address] Attendant: Yeny Rios MD, Phone: | ARSH CASTANON | | [phone] | | + + + + + + + + | Performing | Address | City/State/Zipcode | Phone Number | | Organization | | | | + + + + + | REFERENCE LAB | [address] | [place] [address] | [phone] | | [facility] | [address] [...] [address] | [place] | [phone] | | [facility] | | [address] | | | - LABORATORY | | [...] | [address] | [place], [place] | [phone] | | [facility] | | [address] | | | - LABORATORY | | [...] [address] | [place] | [phone] | | [facility] | | [address] | | | - LABORATORY | | [...] + | [facility] | [address] | [place] | [phone] | | [facility] | | [address] | | | - LABORATORY | | [...] | 0.92 | 0.70 - 1.30 | [facility] | | | | | mg/dL | [facility] | | | | | | MEDICAL | | | | | | CENTER - | | | | | | LABORATORY | | + + + + + + | eGFR if not | >60Comment: GLOMERULAR | >=60 | [facility] | | | | FILTRATION | mL/min/1.73m2 | [facility] | | | GABONESE | RATE,ESTIMATED | | MEDICAL | | | | mL/min/1.78n3Olio than | | CENTER - | | [...] [address] | [place] | [phone] | | [facility] | | [address] | | | - LABORATORY | | [...] day), First | | | dose on [facility] 04/13/19 at 1400, | | | Start 8 hours after pre-op dose., | | | Post-op/Phase II | | + +---+ | | | + +---+ | albuterol 2.5 mg/3 mL nebulizer | | | solution 2.5 mg 2.5 mg, | | | Nebulization, ONCE PRN, Wheezing, | | | Starting [facility] 04/13/19 at 0917, | | [...] HR < 40, | | | Starting [facility] 04/13/19 at 0917, For | | | 2 doses, May repeat one time | | | after 1 min., Recovery/Phase I | | + +---+ | | | + +---+ + +-------+ +--------+---+---+ | ciprofloxacin (CIPRO) tablet | Given | 04/13/20 | 500 mg | | | | 500 mg 500 mg, Oral, ONCE, [facility] | | 19 7:35 | | [...] glucose < 50, | | | Starting [facility] 04/13/19 at 0634, | | | [...] | | | | | | | [id number]-[id number] use of at least | | | [...]
--- OUTSIDE RECORDS SUMMARY | ~2019-11-01 | XMS | Encounter Summary ---
Demographics + + + | Address | [address] | | | [place] [address] | + + + | Home Phone [...] Providers + +------+ + | Care Managing Member Name | Role | Phone | + +------+ + PCP | Unavailable | + +------+ + Encounter Details +--------+ + + + + | Date | Type | Department | Care Team | Description | +--------+ + + + + | 01/17/ | [facility] | [facility] | Jonas Ramos, | | | 2009 | Encounter | MED CTR EMERGENCY | MD [address] | | | | | CENTER [address] | [facility] | | | | | [place] | [place] [address] | | | | | [address] | [phone] | | | | | [phone] | | | +--------+ + + + [...] | | | | | [place], | | | | | | [place] [address] | | | | | | [phone] | | | | | | | | +--------+ + + + + | 11/20/ | Implant | Cardiology | Daljit Singletary, | Remote Device | | 2019 | Monitor | | MD [facility] | Interrogation | | | | | [place], | (Primary Dx); | | | | | [place] [address] | Presence of | | | | | [phone] | permanent cardiac | | | | [...]
--- OUTSIDE RECORDS SUMMARY | ~2019-11-01 | XMS | Encounter Summary ---
Demographics + + + | Address | [address] | | | [place] [address] | + + + | Home Phone [...] Providers + +------+ + | Care Vacuum Conditioner Operator Name | Role | Phone | [...] 2014 | | CARDIOLOGY [address] | RAIL SWITCHMAN [address] | | | | | [place], | [place], [place] | | | | | [place] [address] | [address] | | | | | [phone] | | | +--------+ + + + [...] | 11/09/ | Office | Cardiology | [place], | | | 2019 | Visit | | [place] [address] | | | | | | [place], | | | | | | [place] [address] | | | | | | [phone] | | | | | | | | +--------+ + + + + | 11/20/ | Implant | Cardiology | Daljit Singletary, | Remote Device | | 2018 | Monitor | | MD [address] | Interrogation | | | | | [place], | (Primary Dx); | | | | | [place] [address] | Presence of | | | | | [phone] | permanent cardiac | | | | [...]
--- OUTSIDE RECORDS SUMMARY | ~2019-11-01 | XMS | Encounter Summary ---
Demographics + + + | Address | [address] | | | [place] [address] | + + + | Home Phone [...] Providers + +------+ + | Care Display Decorator Name | Role | Phone | [...] + | 07/01/ | Telephone | [facility] | Daljit Singletary, | Other (EKG) | | 2017 | | CARDIOLOGY [address] | MD [address] | | | | | [place], | [place], | | | | | [place] [address] | [place] [address] | | | | | [phone] | [phone] | | | | | | | [...] | | | | | | [place] [address] | | | | | | [phone] | | | | | | | | +--------+ + + + + | 11/20/ | Implant | Cardiology | Daljit Singletary, | Remote Device | | 2018 | Monitor | | [facility] | Interrogation | | | | | [place], | (Primary Dx); | | | | | [place] [address] | Presence of | | | | | [phone] | permanent cardiac | | | | [...]
--- OUTSIDE RECORDS SUMMARY | ~2019-11-01 | XMS | Encounter Summary ---
Demographics + + + | Address | [address] | | | [place] [address] | + + + | Home Phone [...] + +------+ + | Care Precision Aircraft Systems Assembler Name | Role | Phone | [...] [address] | | | | | | [place], [place] | (Fax) | | | | | [address] | | | | | | [phone] | | | +--------+ + + + [...] | | | | | | [place] [address] | | | | | | [phone] | | | | | | | | +--------+ + + + + | 11/20/ | Implant | Cardiology | Daljit Singletary, | Remote Device | | 2018 | Monitor | | [address] [facility] | Interrogation | | | | | [place], | (Primary Dx); | | | | | [place] [address] | Presence of | | | | | [phone] | permanent cardiac | | | | [...]
--- OUTSIDE RECORDS SUMMARY | ~2019-11-01 | XMS | Encounter Summary ---
Demographics + + + | Address | [address] | | | [place] [address] | + + + | Home Phone [...] Providers + +------+ + | Care Rock Wool Insulator Name | Role | Phone | + [...] | CARDIOLOGY [address] | [address] | reprogramming/check | | | | [place], | [place], | DO NOT DELETE | | | | [place] [address] | [place] [address] | (Primary Dx); | | | | [phone] | [phone] | Sinoatrial node | | | | [...] W | | | | | | [place], | | | | | | [place] [address] | | | | | | [phone] | | | | | | | | +--------+ + + + + | 11/20/ | Implant | Cardiology | Daljit Singletary, | Remote Device | | 2018 | Monitor | | MD [address] [place] | Interrogation | | | | | [place], | (Primary Dx); | | | | | [place] [address] | Presence of | | | | | [phone] | permanent cardiac | | | | [...]
--- OUTSIDE RECORDS SUMMARY | ~2019-11-01 | XMS | Encounter Summary ---
Demographics + + + | Address | [address] | | | [place] [address] | + + + | Home Phone [...] Providers + +------+ + | Care Licensed Certified Orthotist Name | Role | Phone | + [...] abdominal | [address] | [address], | | | | | pain | [address] | [address] | | | | | Chronic pain | [address] | [place], | | | | | syndrome | [place], [place] | [place] [address] | | | | | Procedures | [address] | Phone: | | | | | Office Visit | Phone: | [phone] | | | | | | [phone] | Fax: | | | | | | Fax: | [phone] | | | | | | [phone] | | +--------+--------+ + + + + Encounter Details +--------+---------+ + + + | Date | Type | Department | Care Team | Description | +--------+---------+ + + + | 12/02/ | [facility] [place] | Emmanuel Daniel MD | Diarrhea, | | 2018 | Visit | GASTROENTEROLOGY | [address], [place] | unspecified type | | | | [address] | [address] [place], [place] | (Primary Dx); Weight | | | | [address] [place], [place] | [address] | loss, | | | | [address] | | unintentional; | | | | [phone] | | Generalized | | | | [...] | | | | | | [place] [address] | | | | | | [phone] | | | | | | | | +--------+ + + + + | 11/20/ | Implant | Cardiology | Daljit Singletary, | Remote Device | | 2018 | Monitor | | MD [address] | Interrogation | | | | | [place], | (Primary Dx); | | | | | [place] [address] | Presence of | | | | | [phone] | permanent cardiac | | | | [...]
--- OUTSIDE RECORDS SUMMARY | ~2019-11-01 | XMS | Encounter Summary ---
Demographics + + + | Address | [address] | | | [place] [address] | + + + | Home Phone [...] Providers + +------+ + | Care Belt Weaver Name | Role | Phone | [...] 2017 | | CARDIOLOGY [address] | SPEEDBOAT DRIVER [address] | | | | | [place], | [place], [place] | | | | | [place] [address] | [address] | | | | | [phone] | | | +--------+--------+ + + + [...] W | | | | | | [place], | | | | | | [place] [address] | | | | | | [phone] | | | | | | | | +--------+ + + + + | 11/20/ | Implant | Cardiology | Daljit Singletary, | Remote Device | | 2018 | Monitor | | [address] | Interrogation | | | | | [place], | (Primary Dx); | | | | | [place] [address] | Presence of | | | | | [phone] | permanent cardiac | | | | [...]
--- OUTSIDE RECORDS SUMMARY | ~2019-11-01 | XMS | Encounter Summary ---
Demographics + + + | Address | [address] | | | [place] [address] | + + + | Home Phone [...] Providers + +------+ + | Care Fire Crew Specialist Name | Role | Phone | [...] W | rescheduled) | | | | [place], | [place], | | | | | [place] [address] | [place] [address] | | | | | [phone] | [phone] | | | | | | | [...] W | | | | | | [place], | | | | | | [place] [address] | | | | | | [phone] | | | | | | | | +--------+ + + + + | 11/20/ | Implant | Cardiology | Daljit Singletary, | Remote Device | | 2018 | Monitor | | [address] [place] | Interrogation | | | | | [place], | (Primary Dx); | | | | | [place] [address] | Presence of | | | | | [phone] | permanent cardiac | | | | [...]
--- OUTSIDE RECORDS SUMMARY | ~2019-11-01 | XMS | Encounter Summary ---
Demographics + + + | Address | [address] | | | [place] [address] | + + + | Home Phone [...] Providers + +------+ + | Care Physician Support Coordinator Name | Role | Phone | [...] [address] | | | | | [place], [place] | [place], [place] | | | | | [address] | [address] | | | | | [phone] | | | +--------+ + + + [...] | | | | | | [place] [address] | | | | | | [phone] | | | | | | | | +--------+ + + + + | 11/20/ | Implant | Cardiology | Daljit Singletary, | Remote Device | | 2018 | Monitor | | MD Chiquis Oro | Interrogation | | | | | [place], | (Primary Dx); | | | | | [place] [address] | Presence of | | | | | [phone] | permanent cardiac | | | | [...]
--- OUTSIDE RECORDS SUMMARY | ~2019-11-01 | XMS | Encounter Summary ---
Demographics + + + | Address | [address] | | | [place] [address] | + + + | Home Phone [...] Providers + +------+ + | Care Repair Specialist Name | Role | Phone | [...] | Telephone | [facility] [place] | [place], | LABS | | 2019 | | CARDIOLOGY [address] | Janeen [employer]CHO[employer] BUS INSPECTOR [address] | | | | | [place], | [place], | | | | | [place] [address] | [place] [address] | | | | | [phone] | [phone] | | | | | | | [...] W | | | | | | [place], | | | | | | [place] [address] | | | | | | [phone] | | | | | | | | +--------+ + + + + | 11/20/ | Implant | Cardiology | Daljit Singletary, | Remote Device | | 2018 | Monitor | | [address] [place] | Interrogation | | | | | [place], | (Primary Dx); | | | | | [place] [address] | Presence of | | | | | [phone] | permanent cardiac | | | | [...]
--- OUTSIDE RECORDS SUMMARY | ~2019-11-01 | XMS | Encounter Summary ---
Demographics + + + | Address | [address] | | | [place] [address] | + + + | Home Phone [...] Team Providers + +------+ + | Care Sealant Mixer Name | Role | Phone | + +------+ + PCP | Unavailable | + +------+ + Encounter Details +--------+ + + + + | Date | Type | Department | Care Team | Description | +--------+ + + + + | 07/20/ | [facility] | [facility] | Hunter Antunez, | | | 2009 - | Encounter | MED CTR MED ONC | [address] | | | | | [address] [place] | [place] | | | 07/24/ | | [place] [address] | [address] | | | 2009 | | [phone] | | | +--------+ + + + [...] [place] | | | | | | [place] [address] | | | | | | [phone] | | | | | | | | +--------+ + + + + | 11/20/ | Implant | Cardiology | Daljit Singletary, | Remote Device | | 2019 | Monitor | | MD Chiquis Oro | Interrogation | | | | | [address] [place], | (Primary Dx); | | | | | [place] [address] | Presence of | | | | | [phone] | permanent cardiac | | | | [...]
--- OUTSIDE RECORDS SUMMARY | ~2019-11-01 | XMS | Encounter Summary ---
Demographics + + + | Address | [address] | | | [place] [address] | + + + | Home Phone [...] Providers + +------+ + | Care Manager Switch Name | Role | Phone | + +------+ + PCP | Unavailable | + +------+ + Encounter Details +--------+ + + + + | Date | Type | Department | Care Team | Description | +--------+ + + + + | 08/17/ | Abstract | [facility] | Dairon Holden DO | | | 2011 | | Anti-Coagulation | [address] | | | | | Clinic | FAMILY PRACTICE | | | | | | [place] | | | | | | [address] | | | | | | [phone] | | | | | | | [...] | | | | | | [place] [address] | | | | | | [phone] | | | | | | | | +--------+ + + + + | 11/20/ | Implant | Cardiology | Daljit Singletary, | Remote Device | | 2018 | Monitor | | [facility] | Interrogation | | | | | [address] [place], | (Primary Dx); | | | | | [place] [address] | Presence of | | | | | [phone] | permanent cardiac | | | | [...]
--- OUTSIDE RECORDS SUMMARY | ~2019-11-01 | XMS | Encounter Summary ---
Demographics + + + | Address | [address] | | | [place] [address] | + + + | Home Phone [...] + +------+ + | Care Washtub Worker Helper Name | Role | Phone | + +------+ + PCP | Unavailable | + +------+ + Encounter Details +--------+ + + + + | Date | Type | Department | Care Team | Description | +--------+ + + + + | 01/20/ | [facility] | [facility] | Geri Angel, | | | 2009 | Encounter | MED CTR GENERIC OP | ASSOCIATE ENGINEER [address] [place] [address] | | | | | CONV DEPT [address] | [place] | | | | | [place], | [address] | | | | | [place] [address] | | | | | | [phone] | | | +--------+ + + + [...] W | | | | | | [place], | | | | | | [place] [address] | | | | | | [phone] | | | | | | | | +--------+ + + + + | 11/20/ | Implant | Cardiology | Daljit Singletary, | Remote Device | | 2019 | Monitor | | MD [address] | Interrogation | | | | | [place], | (Primary Dx); | | | | | [place] [address] | Presence of | | | | | [phone] | permanent cardiac | | | | [...]
--- OUTSIDE RECORDS SUMMARY | ~2019-11-01 | XMS | Encounter Summary ---
Demographics + + + | Address | [address] | | | [place] [address] | + + + | Home Phone [...] Team Providers + +------+ + | Care Bridal Gown Fitter Name | Role | Phone | [...] Refill | | 2013 | | [facility] [place] | DO [address] | | | | | [address] | [place] | | | | | [place] | [address] | | | | | [address] | | | | | | [phone] | | | +--------+--------+ + + + [...] W | | | | | | [place], | | | | | | [place] [address] | | | | | | [phone] | | | | | | | | +--------+ + + + + | 11/20/ | Implant | Cardiology | Daljit Singletary, | Remote Device | | 2018 | Monitor | | [facility] | Interrogation | | | | | [place], | (Primary Dx); | | | | | [place] [address] | Presence of | | | | | [phone] | permanent cardiac | | | | [...]
--- OUTSIDE RECORDS SUMMARY | ~2019-11-01 | XMS | Encounter Summary ---
Demographics + + + | Address | [address] | | | [place] [address] | + + + | Home Phone [...] Providers + +------+ + | Care Television Servicer Name | Role | Phone | [...] | | CARDIOLOGY [address] | [address] [place] | | | | | [place], | [place], | | | | | [place] [address] | [place] [address] | | | | | [phone] | [phone] | | | | | | | [...] | | | | | | [place] [address] | | | | | | [phone] | | | | | | | | +--------+ + + + + | 11/20/ | Implant | Cardiology | aDljit Singletary, | Remote Device | | 2018 | Monitor | | [address] [facility] [place] | Interrogation | | | | | [place], | (Primary Dx); | | | | | [place] [address] | Presence of | | | | | [phone] | permanent cardiac | | | | [...]
--- OUTSIDE RECORDS SUMMARY | ~2019-11-01 | XMS | Encounter Summary ---
Demographics + + + | Address | [address] | | | [place] [address] | + + + | Home Phone [...] Providers + +------+ + | Care Principal Hardware Architect Name | Role | Phone | + +------+ + | Michael Amanda DO | PCP | | + +------+ + Encounter Details +--------+ + + + + | Date | Type | Department | Care Team | Description | +--------+ + + + + | 01/31/ | Hospital | [facility] | Adrian Gutierrez MD | | | 2012 | Encounter | HEART MED CTR | [address] | | | | | EMERGENCY CENTER | [place], [place] | | | | | [address] | [address] | | | | | [place] | [phone] | | | | | [address] | | | | | | [phone] | | | +--------+ + + + [...] + + + +---------+ + + | [place]-3 Fatty | CAPS, one capsule by | [...] | | | | | | [place] [address] | | | | | | [phone] | | | | | | | | +--------+ + + + + | 11/20/ | Implant | Cardiology | Daljit Singletary, | Remote Device | | 2019 | Monitor | | [facility] | Interrogation | | | | | [address] [place], | (Primary Dx); | | | | | [place] [address] | Presence of | | | | | [phone] | permanent cardiac | | | | [...] + + + | Exam Performed Location: [facility] TWO-VIEW | MISCELANIOUS | | CHEST CLINICAL [...] | an acute cardiopulmonary process. S: SQ ([id number]) Signed by: | | | JAYNE SPEAR MD | | + + + + + | Procedure Note | + + | Kevin, Rad Conversion - 09/13/2013 10:25 PM PDT Exam Performed Location[facility]ST[facility] INFORMATION:Shortness of | | breath.COMPARISON:None.FINDINGS:There is a left subclavian dual lead cardiac pacer. The | | heart sizeand mediastinal contours are normal. The pulmonary vasculature isnormal. No | | focal airspace opacities, pleural effusions, orpneumothorax. Cervical fusion hardware | | is noted. No acute osseousfindings.IMPRESSION:No evidence of an acute cardiopulmonary | | process.S: SQ ([id number]) Signed by: JAYNE SPEAR MD | |COMPARISON: [...] | | | | | |S: SQ ([id number]) Signed by: JAYNE SPEAR MD | + + + +---------+ + + | Performing | Address | City/State/Zipcode | Phone Number | | Organization | | | | + +---------+ + + | MISCELLANEOUS LAB | | | [phone] | + +---------+ + + | MISCELANIOUS LAB | | | [phone] | + +---------+ + + Troponin I [...] + + | [facility] | [address] | [place] [address] | | | [facility] | [...] + + | [facility] | [address] | [place] [address] | | | [facility] | [...] + + | [facility] | [address] | [place] [address] | | | HEART [facility] | | | | | LABORATORY | | | | + + + + + | [facility] | | | | | [facility]ART [facility] | | | [...] + + | [facility] | [address] | [place] [address] | | | [facility] | | | | | LABORATORY | | | | + + + + + | [facility] | | | | | [facility] | | | | | [...] + + | Glucose | 154 (H)Comment: Cook Islander | 65 - 99 mg/dL | [facility] | | | | Diabetes Association [...] + + | [facility] | [address] | [place] [address] | | | [facility] | | | | | LABORATORY | | | | + + + + + | [facility] | | | | | [facility] | | | | | LABORATORY | | | | + + + + + documented in this encounter Visit Diagnoses Not on filedocumented in this encounter"
--- OUTSIDE RECORDS SUMMARY | ~2019-11-01 | XMS | Encounter Summary ---
Demographics + + + | Address | [address] | | | [place] [address] | + + + | Home Phone [...] Team Providers + +------+ + | Care Packager Head Name | Role | Phone | [...] + + | 02/15/ | [facility] | [facility] | aJy Cohn PA | DIDIER (obstructive | | 2012 | Visit | SLEEP DISORDER [address] | [address] | sleep apnea) | | | | [address] [place] | [place] | (Primary Dx) | | | | [place] [address] | [address] | | | | | [phone] | | | +--------+---------+ + + + [...] PDTGo to [facility] for replacement equipment including: Nasal pillows [...] pillows obtained from: [facility] [place] pressure is: 13 cm CPAP download shows [...] to go to [facility] [place] to replace his equipment, but it had [...] to go to [facility] [place] to g et a new mask and filter. He is to work toward wearing his CPAP 100% of the time he is asle ep. I will follow up again in 1 month, sooner prn. Fifteen minutes were spent [id number], wi th the majority of time spent [...] W | | | | | | [place], | | | | | | [place] [address] | | | | | | [phone] | | | | | | | | +--------+ + + + + | 11/20/ | Implant | Cardiology | Daljit Singletary, | Remote Device | | 2019 | Monitor | | [address] | Interrogation | | | | | [place], | (Primary Dx); | | | | | [place] [address] | Presence of | | | | | [phone] | permanent cardiac | | | | [...]
--- OUTSIDE RECORDS SUMMARY | ~2019-11-01 | XMS | Clinical Summary ---
Demographics + + + | Address | [address] | | | [place] [address] | + + + | Home Phone | | + + + | Preferred Language | Unknown | + + + | Marital Status | | + + + | Jain Affiliation | 1013 | + + + | Race | Unknown | + + + | Ethnic Group | Unknown | + + + Author + + + | Author | [facility] (Historical as of | | | 07-08-19) | + + + | Organization | [facility] (Historical as of | | | 07-08-19) [...] Team Providers + +------+ + | Care Riffler Tender Name | Role | Phone | [...] + | AUTO INSURANCE | AUTO | [id number] | | | | | | INSURA | | | | | | | NCE | | | | | | | GENERI | | | | | | | C | | | | | + +--------+ +------+-------+ + | AUTO INSURANCE | AUTO | [id number] | | | | | | INSURA | [id number] | | | | | | NCE | | | | | | | GENERI | | | | | | | C | | | | | + +--------+ +------+-------+ + | MEDICARE | MEDICA | [id number] | | | [address] | | | RE | | | | [place], [place] [address] | | | IP-OP | | | | | + +--------+ +------+-------+ + | [facility] | [place] | [id number] | | | | | | | [...] | Self | [birth year] | Home: | [address] | | | al/Fam | | 9 | +[address]- | [address] [place], [place] | | | roxanne | | | [address] | [address] | + +--------+ +--------+ + + | AMILCAR GAY | Third | Self | [birth year] | Home: | [address] | | | [employer] | | 9 | +- | [place], [place] | | | Liabil | | | [phone] | [address] | | | ity | | | | | + +--------+ +--------+ + + | AMILCAR GAY | Third | Self | [birth year] | Home: | [address] | | | [employer] | | 1960 | +- | [place], [place] | | | Liabil | | | [address] | [address] | | | ity | | | | | + +--------+ +--------+ + +
--- OUTSIDE RECORDS SUMMARY | ~2019-11-01 | XMS | Encounter Summary ---
Demographics + + + | Address | [address] | | | [place] [address] | + + + | Home Phone [...] Providers + +------+ + | Care Turning Machine Operator Name | Role | Phone [...] Provider Unknown | | | | | [place], [place] | [phone] | | | | | [address] | | | | | | [phone] | | | +--------+ + + + [...] + + + +---------+ + + | [place]-3 Fatty | CAPS, one capsule by [...] W | | | | | | [place], | | | | | | [place] [address] | | | | | | [phone] | | | | | | | | +--------+ + + + + | 11/20/ | Implant | Cardiology | Daljit Singletary, | Remote Device | | 2018 | Monitor | | MD [address] [place] [place] | Interrogation | | | | | [place], | (Primary Dx); | | | | | [place] [address] | Presence of | | | | | [phone] | permanent cardiac | | | | [...]
--- OUTSIDE RECORDS SUMMARY | ~2019-11-01 | XMS | Encounter Summary ---
Demographics + + + | Address | [address] | | | [place] [address] | + + + | Home Phone [...] Providers + +------+ + | Care Staffing Consultant Name | Role | Phone | [...] | 01/05/ | Telephone | [facility] [place] | Emmanuel Daniel MD | Other | | 2019 | | GASTROENTEROLOGY | [address] [place] | | | | | [address] [place] | [address] [place], [place] | | | | | [address] [place], [place] | [address] | | | | | [address] | | | | | | [phone] | | | +--------+ + + + [...] | | | | | | [place] [address] | | | | | | [phone] | | | | | | | | +--------+ + + + + | 11/20/ | Implant | Cardiology | Daljit Singletary, | Remote Device | | 2018 | Monitor | | MD [address] [place] | Interrogation | | | | | [address] [place], | (Primary Dx); | | | | | [place] [address] | Presence of | | | | | [phone] | permanent cardiac | | | | [...]
--- OUTSIDE RECORDS SUMMARY | ~2019-11-01 | XMS | Encounter Summary ---
Demographics + + + | Address | [address] | | | [place] [address] | + + + | Home Phone [...] Providers + +------+ + | Care Brusher Machine Name | Role | Phone | [...] | | CARDIOLOGY [address] | [address] [place] | | | | | [place], | [place], | | | | | [place] [address] | [place] [address] | | | | | [phone] | [phone] | | | | | | | [...] | | | | | | [place], | | | | | | [place] [address] | | | | | | [phone] | | | | | | | | +--------+ + + + + | 11/20/ | Implant | Cardiology | Daljit Singletary, | Remote Device | | 2018 | Monitor | | [facility] | Interrogation | | | | | [place], | (Primary Dx); | | | | | [place] [address] | Presence of | | | | | [phone] | permanent cardiac | | | | [...]
--- OUTSIDE RECORDS SUMMARY | ~2019-11-01 | XMS | Encounter Summary ---
Demographics + + + | Address | [address] | | | [place] [address] | + + + | Home Phone [...] Providers + +------+ + | Care Can Feeder Name | Role | Phone | [...] Show | | 2012 | | MEDICINE [place] | DO [address] | | | | | [address] | [place] | | | | | [place] | [address] | | | | | [address] | | | | | | [phone] | | | +--------+ + + + [...] | | | | | | [place] [id number] | | | | | | [phone] | | | | | | | | +--------+ + + + + | 11/20/ | Implant | Cardiology | Daljit Singletary, | Remote Device | | 2018 | Monitor | | MD Chiquis Oro | Interrogation | | | | | [place], | (Primary Dx); | | | | | [place] [id number] | Presence of | | | | | [phone] | permanent cardiac | | | | [...]
--- OUTSIDE RECORDS SUMMARY | ~2019-11-01 | XMS | Encounter Summary ---
Demographics + + + | Address | [address] | | | [place] [address] | + + + | Home Phone [...] 2012 | | CARDIOLOGY [address] | WINDOWS ADMIN [address] [place] | to be referred | | | | [place], | [place], [place] | soon) | | | | [place] [address] | [address] | | | | | [phone] | | | +--------+ + + + [...] W | | | | | | [place], | | | | | | [place] [address] | | | | | | [phone] | | | | | | | | +--------+ + + + + | 11/20/ | Implant | Cardiology | Daljit Singletary, | Remote Device | | 2018 | Monitor | | [address] [place] | Interrogation | | | | | [place], | (Primary Dx); | | | | | [place] [address] | Presence of | | | | | [phone] | permanent cardiac | | | | [...]
--- OUTSIDE RECORDS SUMMARY | ~2019-11-01 | XMS | Encounter Summary ---
Demographics + + + | Address | [address] | | | [place] [address] | + + + | Home Phone [...] + +------+ + | Care Tractor Engine Mechanic Name | Role | Phone [...] + + | 06/25/ | Office | [facility] | [place], | SINUS BRADYCARDIA | | 2013 | Visit | CARDIOLOGY [address] | [place] [address] | (Primary Dx); | | | | [place], | [place], | Symptomatic PVCs; | | | | [place] [address] | [place] [address] | Coronary artery | | | | [phone] | [phone] | disease; | | | | | [...] needed for Chest pain. 25 tablet 12 [place]-3 Fatty Acids (SALMON OIL-1000 PO) CAPS, one [...] attenuation cannot completely be ruled out. D[facility] 12/25/13, shows non critical coronary [...] to go back in 3 days to [place] for an attempt of ablation under general [...] made to ensure accuracy; however, inadvertent computerized health care specialist errors may be pre sent. Electronically [...] | | | | | | [place], | | | | | | [place] [address] | | | | | | [phone] | | | | | | | | +--------+ + + + + | 11/20/ | Implant | Cardiology | Daljit Singletary, | Remote Device | | 2018 | Monitor | | [address] [place] | Interrogation | | | | | [place], | (Primary Dx); | | | | | [place] [address] | Presence of | | | | | [phone] | permanent cardiac | | | | [...] of unspecified type of vessel, | | elim ira or graft | + + | Hypertension Unspecified essential hypertension | + + | Syncope Syncope and collapse | + + | Hyperlipidemia Other and unspecified hyperlipidemia | + + documented in this encounter
--- OUTSIDE RECORDS SUMMARY | ~2019-11-01 | XMS | Encounter Summary ---
Demographics + + + | Address | [address] | | | [place] [address] | + + + | Home Phone [...] Team Providers + +------+ + | Care Radiology Scheduler Name | Role | Phone | [...] | 2018 | Changes | GASTROENTEROLOGY | Cuff Matcher | | | | | [address] [facility] | | | | | | [address] [place] | | | | | | [address] | | | | | | [phone] | | | +--------+ + + + [...] | | | | | | [place] [address] | | | | | | [phone] | | | | | | | | +--------+ + + + + | 11/20/ | Implant | Cardiology | Daljit Singletary, | Remote Device | | 2018 | Monitor | | [address] [place] | Interrogation | | | | | [place], | (Primary Dx); | | | | | [place] [address] | Presence of | | | | | [phone] | permanent cardiac | | | | [...]
--- OUTSIDE RECORDS SUMMARY | ~2019-11-01 | XMS | Encounter Summary ---
Demographics + + + | Address | [address] | | | [place] [address] | + + + | Home Phone [...] Providers + +------+ + | Care Computer Operations Supervisor Name | Role | Phone [...] Eva R[place] | | | | | [place], [place] | [address] | | | | | [address] | [place] [address] | | | | | [phone] | [phone] | | | | | | | [...] W | | | | | | [place], | | | | | | [place] [address] | | | | | | [phone] | | | | | | | | +--------+ + + + + | 11/20/ | Implant | Cardiology | Daljit Singletary, | Remote Device | | 2018 | Monitor | | [address] | Interrogation | | | | | [place], | (Primary Dx); | | | | | [place] [address] | Presence of | | | | | [phone] | permanent cardiac | | | | [...]
--- OUTSIDE RECORDS SUMMARY | ~2019-11-01 | XMS | Encounter Summary ---
Demographics + + + | Address | [address] | | | [place] [address] | + + + | Home Phone [...] Team Providers + +------+ + | Care Rivet Hole Puncher Name | Role | Phone | [...] [address] | | | | | | [place], [place] | (Fax) | | | | | [address] | | | | | | [phone] | | | +--------+ + + + [...] | | | | | | [place] [address] | | | | | | [phone] | | | | | | | | +--------+ + + + + | 11/20/ | Implant | Cardiology | Daljit Singletary, | Remote Device | | 2018 | Monitor | | [facility] | Interrogation | | | | | [place], | (Primary Dx); | | | | | [place] [address] | Presence of | | | | | [phone] | permanent cardiac | | | | [...]
--- OUTSIDE RECORDS SUMMARY | ~2019-11-01 | XMS | Encounter Summary ---
Demographics + + + | Address | [address] | | | [place] [address] | + + + | Home Phone [...] Team Providers + +------+ + | Care Polymer Tester Name | Role | Phone | + +------+ + PCP | Unavailable | + +------+ + Encounter Details +--------+ + + + + | Date | Type | Department | Care Team | Description | +--------+ + + + + | 05/13/ | [facility] | [facility] | Dom [place], | | | 2010 | Encounter | MED CTR EMERGENCY | [address] | | | | | CENTER [address] [place] | [place] | | | | | [place] | [address] | | | | | [address] | | | | | | [phone] | | | +--------+ + + + [...] W | | | | | | [place], | | | | | | [place] [address] | | | | | | [phone] | | | | | | | | +--------+ + + + + | 11/20/ | Implant | Cardiology | Daljit Singletary, | Remote Device | | 2019 | Monitor | | [facility] | Interrogation | | | | | [place], | (Primary Dx); | | | | | [place] [address] | Presence of | | | | | [phone] | permanent cardiac | | | | [...] | | | | | the [facility] | | | | | | Access [...] ST. | [address] | [place], [place] | [phone] | | [facility] | | [address] | | | - LABORATORY | | | | + + + + + | [facility] [facility] | [address] | [place], [place] | | | [facility] | | [address] | | | - LABORATORY | | [...] + | [facility] | [address] | [place] | [phone] | | [facility] | | [address] | | | - LABORATORY | | | | + + + + + | [facility] | [address] | [place], [place] | | | [facility] | | [address] | | | - LABORATORY | | [...] + | [facility] | [address] | [place], [place] | [phone] | | [facility] | | [address] | | | - LABORATORY | | | | + + + + + | [facility] | [address] | [place], [place] | | | [facility] | | [address] | | | - LABORATORY | | [...] | + + + + + | [facility] | [address] | [place], [place] | [phone] | | [facility] | | [address] | | | - LABORATORY | | | | + + + + + | [facility] | [address] | [place], [place] | | | [facility] | | [address] | | | - LABORATORY | | | | + + + + + XR Chest AP Portable (05/13/2011 3:01 PM PDT) + + | Specimen | + + | | + + + + + | Narrative | Performed At | + + + | [facility] | [facility] | | [address] [facility] | [facility] | | PORTABLE CHEST CLINICAL | DIAG [...] Transcribed Date/Time: | | | 05/13/2011 17:06 Pattern Cutter: <Electronically Signed | | | by Jama Solis MD> [id number]/13/[id number] | | + + + + + | Procedure Note | + + | Kevin, Rad Conversion - 12/29/2013 3:12 PM [facility] | | Diagnostic Imaging Department [address] [place] [address] | | PORTABLE CHEST CLINICAL HISTORY: TACHYCARDIA. [...] 16:57 | |Transcribed Date/Time: 05/13/2011 17:06 | |Pattern Cutter: | |<Electronically Signed by Jama Solis [...]
--- OUTSIDE RECORDS SUMMARY | ~2019-11-01 | XMS | Encounter Summary ---
Demographics + + + | Address | [address] | | | [place] [address] | + + + | Home Phone [...] Team Providers + +------+ + | Care Pivot Maker Name | Role | Phone | + +------+ + | Michael Amanda DO | PCP | | + +------+ + Encounter Details +--------+ + + + + | Date | Type | Department | Care Team | Description | +--------+ + + + + | 01/31/ | Hospital | [facility] | Adrian Gutierrez MD | | | 2012 | Encounter | [facility] | [address] | | | | | EMERGENCY CENTER | [place], [place] | | | | | [address] | [address] | | | | | [place] | [phone] | | | | | [address] | | | | | | [phone] | | | +--------+ + + + [...] + + + +---------+ + + | Helm-3 Fatty | CAPS, one capsule by | [...] | | | | | | [place] [address] | | | | | | [phone] | | | | | | | | +--------+ + + + + | 11/20/ | Implant | Cardiology | Daljit Singletary, | Remote Device | | 2019 | Monitor | | [facility] | Interrogation | | | | | [place], | (Primary Dx); | | | | | [place] [address] | Presence of | | | | | [phone] | permanent cardiac | | | | [...] + + + | Exam Performed Location: [facility] | MISCELANIOUS | | CHEST CLINICAL [...] | an acute cardiopulmonary process. S: SQ ([id number]) Signed by: | | | JAYNE SPEAR MD | | + + + + + | Procedure Note | + + | Kevin, Rad Conversion - 09/13/2013 10:25 PM PDT Exam Performed Location[facility] CHEST[facility]ICAL INFORMATION:Shortness of | | breath.COMPARISON:None.FINDINGS:There is a left subclavian dual lead cardiac pacer. The | | heart sizeand mediastinal contours are normal. The pulmonary vasculature isnormal. No | | focal airspace opacities, pleural effusions, orpneumothorax. Cervical fusion hardware | | is noted. No acute osseousfindings.IMPRESSION:No evidence of an acute cardiopulmonary | | process.S: SQ ([id number]) Signed by: JAYNE SPEAR MD | |COMPARISON: [...] | | | | | |S: SQ ([id number]) Signed by: JAYNE SPEAR MD | + + + +---------+ + + | Performing | Address | City/State/Zipcode | Phone Number | | Organization | | | | + +---------+ + + | MISCELLANEOUS LAB | | | [phone] | + +---------+ + + | MISCELANIOUS LAB | | | [phone] | + +---------+ + + Troponin I [...] + + | [facility] | [address] | [place] [address] | | | [facility] | [...] + + | [facility] | [address] | [place] [address] | | | [facility] | [...] + + | [facility] | [address] | [place] [address] | | | [facility]ART [facility] | | | | | LABORATORY | | | | + + + + + | [facility] | | | | | HEART [facility] | | | | [...] + + | [facility]ON[facility] | [address] | [place] [address] | | | [facility] | | | | | LABORATORY | | | | + + + + + | [facility]ON[facility] | | | | | [facility] | | | [...] + + | Glucose | 154 (H)Comment: Ecuad[place] | 65 - 99 mg/dL | [facility] | | | | Diabetes Association [...] + + | [facility]ON[facility] | [address] | [place] [address] | | | [facility] | [...]
--- OUTSIDE RECORDS SUMMARY | ~2019-11-01 | XMS | Encounter Summary ---
Demographics + + + | Address | [address] | | | [place] [address] | + + + | Home Phone [...] Providers + +------+ + | Care Dental Technician Instructor Name | Role | Phone | [...] 2019 | | GASTROENTEROLOGY | [address], [place] | | | | | [address] [place] | [address] [place], [place] | | | | | [address] [place], [place] | [address] | | | | | [address] | | | | | | [phone] | | | +--------+ + + + [...] | | | | | | [place], | | | | | | [place] [address] | | | | | | [phone] | | | | | | | | +--------+ + + + + | 11/20/ | Implant | Cardiology | Daljit Singletary, | Remote Device | | 2019 | Monitor | | [address] [place] | Interrogation | | | | | [place], | (Primary Dx); | | | | | [place] [address] | Presence of | | | | | [phone] | permanent cardiac | | | | [...]
--- OUTSIDE RECORDS SUMMARY | ~2019-11-01 | XMS | Encounter Summary ---
Demographics + + + | Address | [address] | | | [place] [address] | + + + | Home Phone [...] Providers + +------+ + | Care Cement Loader Name | Role | Phone | [...] | disease involving | | | | [place], | [place], | [place] | | | | [place] [address] | [place] [address] | artery without | | | | [phone] | [phone] | angina pectoris | | | | [...] W | | | | | | [place], | | | | | | [place] [address] | | | | | | [phone] | | | | | | | | +--------+ + + + + | 11/20/ | Implant | Cardiology | Daljit Singletary, | Remote Device | | 2018 | Monitor | | [place] [facility] | Interrogation | | | | | 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
--- OUTSIDE RECORDS SUMMARY | ~2019-11-01 | XMS | Encounter Summary ---
Demographics + + + | Address | [address] | | | [place] [address] | + + + | Home Phone [...] Team Providers + +------+ + | Care Switching Operator Name | Role | Phone | [...] [place] | | | | | | [address] | | | | | | [phone] | | | +--------+ + + + [...] | | | | | | [place], | | | | | | [place] [address] | | | | | | [phone] | | | | | | | | +--------+ + + + + | 11/20/ | Implant | Cardiology | Daljit Singletary, | Remote Device | | 2018 | Monitor | | [address] [facility] | Interrogation | | | | | [place], | (Primary Dx); | | | | | [place] [address] | Presence of | | | | | [phone] | permanent cardiac | | | | [...]
--- OUTSIDE RECORDS SUMMARY | ~2019-11-01 | XMS | Encounter Summary ---
Demographics + + + | Address | [address] | | | [place] [address] | + + + | Home Phone [...] Team Providers + +------+ + | Care Mercury Cell Cleaner Name | Role | Phone | + +------+ + | Kirk French MD | PCP | | + +------+ + Encounter Details +--------+ + + + + | Date | Type | Department | Care Team | Description | +--------+ + + + + | 01/18/ | Hospital | [facility] | Conversion | Diagnosis unknown | | 2017 | Encounter | CONVERSION DEP [address] | Transaction, | | | | | [address] | Provider Unknown | | | | | [place], [place] | [phone] | | | | | [address] | | | | | | [phone] | | | +--------+ + + + [...] + + + +---------+ + + | [place]-3 Fatty | CAPS, one capsule by | [...] | | | | | | [place] [address] | | | | | | [phone] | | | | | | | | +--------+ + + + + | 11/20/ | Implant | Cardiology | Daljit Singletary, | Remote Device | | 2019 | Monitor | | MD [address] [facility] | Interrogation | | | | | [place] [place], | (Primary Dx); | | | | | [place] [address] | Presence of | | | | | [phone] | permanent cardiac | | | | [...]
--- OUTSIDE RECORDS SUMMARY | ~2019-11-01 | XMS | Encounter Summary ---
Demographics + + + | Address | [address] | | | [place] [address] | + + + | Home Phone [...] Providers + +------+ + | Care Vacuum Form Operator Name | Role | Phone | [...] 2016 | | CARDIOLOGY [address] | TERRA COTTA ROOFER [address] [place] | | | | | [place], | [place], [place] | | | | | [place] [address] | [address] | | | | | [phone] | | | +--------+--------+ + + + [...] W | | | | | | [place], | | | | | | [place] [address] | | | | | | [phone] | | | | | | | | +--------+ + + + + | 11/20/ | Implant | Cardiology | Daljit Singletary, | Remote Device | | 2018 | Monitor | | [address] | Interrogation | | | | | [place], | (Primary Dx); | | | | | [place] [address] | Presence of | | | | | [phone] | permanent cardiac | | | | [...]
--- OUTSIDE RECORDS SUMMARY | ~2019-11-01 | XMS | Encounter Summary ---
Demographics + + + | Address | [address] | | | [place] [address] | + + + | Home Phone [...] Team Providers + +------+ + | Care Winery Worker Name | Role | Phone | [...] | 07/30/ | Telephone | [facility] | Michael Amanda, | Results | | 2013 | | MEDICINE [place] | DO [address] | | | | | [address] | [place] | | | | | [place] | [address] | | | | | [address] | | | | | | [phone] | | | +--------+ + + + [...] | | | | | | [place] [address] | | | | | | [phone] | | | | | | | | +--------+ + + + + | 11/20/ | Implant | Cardiology | Daljit Singletary, | Remote Device | | 2018 | Monitor | | MD [address] | Interrogation | | | | | [place], | (Primary Dx); | | | | | [place] [address] | Presence of | | | | | [phone] | permanent cardiac | | | | [...]
--- OUTSIDE RECORDS SUMMARY | ~2019-11-01 | XMS | Encounter Summary ---
Demographics + + + | Address | [address] | | | [place] [address] | + + + | Home Phone [...] + +------+ + | Care Risk Management Consultant Name | Role | [...] Amanda, | | | 2013 | | [facility] | DO [address] | | | | | [address] | [place] | | | | | [place] | [address] | | | | | [address] | | | | | | [phone] | | | +--------+ + + + [...] | | | | | | [place] [address] | | | | | | [phone] | | | | | | | | +--------+ + + + + | 11/20/ | Implant | Cardiology | Daljit Singletary, | Remote Device | | 2018 | Monitor | | [address] [facility] | Interrogation | | | | | [address] [place], | (Primary Dx); | | | | | [place] [address] | Presence of | | | | | [phone] | permanent cardiac | | | | [...]
--- OUTSIDE RECORDS SUMMARY | ~2019-11-01 | XMS | Encounter Summary ---
Demographics + + + | Address | [address] | | | [place] [address] | + + + | Home Phone [...] Providers + +------+ + | Care Hand Braille Transcriber Name | Role | Phone | [...] + + | 01/03/ | Telephone | [facility] | Emmanuel Daniel MD | Results, Pathology | | 2018 | | GASTROENTEROLOGY | [address] [place], [place] | (egd,colon) | | | | [address] | [address] [place], [place] | | | | | [address] [place], [place] | [address] | | | | | [address] | | | | | | [phone] | | | +--------+ + + + [...] | | | | | | [place], | | | | | | [place] [address] | | | | | | [phone] | | | | | | | | +--------+ + + + + | 11/20/ | Implant | Cardiology | Daljit Singletary, | Remote Device | | 2018 | Monitor | | MD [address] | Interrogation | | | | | [place], | (Primary Dx); | | | | | [place] [address] | Presence of | | | | | [phone] | permanent cardiac | | | | [...]
--- OUTSIDE RECORDS SUMMARY | ~2019-11-01 | XMS | Encounter Summary ---
Demographics + + + | Address | [address] | | | [place] [address] | + + + | Home Phone [...] Providers + +------+ + | Care Wire Bender Name | Role | Phone | + [...] | [address] | [place] [address] | | | | | [place] | [phone] | | | | | [address] | | | | | | [phone] | | | +--------+ + + + [...] | | | | | | [place], | | | | | | [place] [address] | | | | | | [phone] | | | | | | | | +--------+ + + + + | 11/20/ | Implant | Cardiology | Daljit Singletary, | Remote Device | | 2018 | Monitor | | MD [address] | Interrogation | | | | | [facility] [place], | (Primary Dx); | | | | | [place] [address] | Presence of | | | | | [phone] | permanent cardiac | | | | [...]
--- OUTSIDE RECORDS SUMMARY | ~2019-11-01 | XMS | Encounter Summary ---
Demographics + + + | Address | [address] | | | [place] [address] | + + + | Home Phone [...] Team Providers + +------+ + | Care Sandblaster Supervisor Name | Role | Phone | [...] | Aneurysmal | [place], | [address] | | | | | dilatation | [place] | [place], | | | | | ([facility]) | [address] | [place] | | | | | Procedures | [address] | [address] | | | | | ECHO | [place], | Phone: | | | | | Complete | [place] | [phone] | | | | | | [address] | Fax: | | | | | | Phone: | [phone] | | | | | | [phone] | | | | | | | Fax: | | | | | | | [phone] | | +--------+--------+ + + + + [...] | | | | | Aneurysmal | [place], | [address] | | | | | dilatation | PARISA Solis | [place], | | | | | ([facility]) | [address] | [place] | | | | | Procedures | [address] | [address] | | | | | ECHO | [place], | Phone: | | | | | Complete | [place] | [phone] | | | | | | [address] | Fax: | | | | | | Phone: | [phone] | | | | | | [phone] | | | | | | | Fax: | | | | | | | [phone] | | +--------+--------+ + + + + Encounter Details +--------+ + + + + | Date | Type | Department | Care Team | Description | +--------+ + + + + | 11/16/ | Hospital | [facility] | Silvia, | Aneurysmal | | 2017 | Encounter | MED CTR ECHO [address] | Janeen, PRODUCTION RECORDER [address] | dilatation (HCC) | | | | [address] [place] | [address] [place], | | | | | [place], [place] [address] | [place] [address] | | | | | [phone] | [phone] | | | | | | | [...] + + + +---------+ + + | [place]-3 Fatty | CAPS, one capsule by [...] | | | | | | [place] [address] | | | | | | [phone] | | | | | | | | +--------+ + + + + | 11/20/ | Implant | Cardiology | Sydni Singletary, | Remote Device | | 2019 | Monitor | | MD 401 [facility] | Interrogation | | | | | [address] [place], | (Primary Dx); | | | | | [place] [address] | Presence of | | | | | [phone] | permanent cardiac | | | | [...] Patient Name VICTOR HUGO | | | [place] Room Number SARAH Patient | | | [id number] Date of Study 11/16/2017 Number | | | Visit Number [id number] | | | Referring Physician GURJIT TROY Number | | | NORMA SOLIS Date | | | of 1960 Engine Assembler ROMAINE | | | MARISSA TIPTON Age 57 year(s) Interpreting | | | GURJIT TROY | | | Chaplaincy SYDNI SINGLETARY, | | | MD | | | Gender Male Nurse | | | Stress Manager Route Procedure Type of | | | Study [...] | | | EF | | | Gkatxfvbh27% Left Ventricle Diastolic Dimension: 5.12 cm | [...] Volume: 46.33 ml | | | EF Pfrxukpqh88% | | | | | | Left [...] Rad Results In - 11/16/2017 1:48 PM [facility] Transthoracic Echocardiography Report | | (TTE) Demographics Patient Name VICTOR HUGO BARRY Room Number SARAH | | Patient [id number] Date of Study 11/16/2017 Number Visit Number | | [id number] Referring Physician GURJIT TROY | | Number NORMA SOLIS Date of | | 1960 Engine Assembler ROMAINE TIPTON [facility] Age 57 year(s) | | Interpreting GURJIT TROY Chaplaincy | | SYDNI SINGLETARY MD | | [...] [place] Volume: 46.33 ml | | EF Fgzgttqri41% Left Ventricle Diastolic Dimension: 5.12 cm Systolic [...] [place] Volume: 46.33 ml | | EF Ahscavzvd79% | | | | Left Ventricle | [...]
--- OUTSIDE RECORDS SUMMARY | ~2019-11-01 | XMS | Encounter Summary ---
Demographics + + + | Address | [address] [place] [address] | | | [place] [address] | + + + | Home Phone [...] + + + | Author | [facility] | + + + | Organization | [facility] | + + + | Address | Unknown | + + + | Phone | Unavailable | + + + Support + + + + + | Name | Relationship | Address | Phone | + + + + + | Rachel Valencia | [address] | [place] | | | | | [address] | | + + + + + Care Team Providers + +------+ + | Care Nurse Assistant Name | Role | Phone | [...] | | 2019 | | [facility] [place] [address] | MD [address] | | | | | [address] | [facility] [place] | | | | | Mailcode: [place] | [address] | | | | | for Health and | [phone] | | | | | [facility] | | | | | | [facility] [place] | | | | | | [address] | | | | | | [phone] | | | +--------+ + + + [...]
--- OUTSIDE RECORDS SUMMARY | ~2019-11-01 | XMS | Encounter Summary ---
Demographics + + + | Address | [address] | | | [place] [address] | + + + | Home Phone [...] Team Providers + +------+ + | Care Measurement Advisor Name | Role | Phone | [...] | SLEEP DISORDER [address] | [address] | Dx) | | | | [address] [place] | [place] | | | | | [place] [address] | [address] | | | | | [phone] | | | +--------+---------+ + + + [...] pillows obtained from: [facility] [place] pressure is: 13 cm CPAP download shows [...] to go to [facility] [place] to have them download his memory card. I will readjust his pressure, if necessary. I will call him with the results. He is to work toward wearing his CPAP 100% of the time he is asleep. I will follow up again in 1 month, sooner prn. Fifteen minutes were spent [id number], wi th the majority of time spent [...] W | | | | | | [place], | | | | | | [place] [address] | | | | | | [phone] | | | | | | | | +--------+ + + + + | 11/20/ | Implant | Cardiology | Daljit Singletary, | Remote Device | | 2018 | Monitor | | [address] [facility] | Interrogation | | | | | [place], | (Primary Dx); | | | | | [place] [address] | Presence of | | | | | [phone] | permanent cardiac | | | | [...]
--- OUTSIDE RECORDS SUMMARY | ~2019-11-01 | XMS | Encounter Summary ---
Demographics + + + | Address | [address] | | | [place] [address] | + + + | Home Phone [...] Team Providers + +------+ + | Care Intake Man Name | Role | Phone | + +------+ + | Kirk French MD | PCP | | + +------+ + Encounter Details +--------+ + + + + | Date | Type | Department | Care Team | Description | +--------+ + + + + | 07/21/ | Hospital | [facility] | Daljit Singletary, | Palpitations; | | 2018 | Encounter | MED CTR NUCLEAR | MD [address] | Presence of | | | | MEDICINE [address] | [place], | permanent cardiac | | | | [place], | [place] [address] | pacemaker; | | | | [address] | [phone] | Sinoatrial node | | | | [phone] | | dysfunction (HCC) | +--------+ + [...] + + + +---------+ + + | [place]-3 Fatty | CAPS, one capsule by | [...] | | | | | | [place] [address] | | | | | | [phone] | | | | | | | | +--------+ + + + + | 11/20/ | Implant | Cardiology | SunshinecherelleDaljit, | Remote Device | | 2019 | Monitor | | [address] [facility] | Interrogation | | | | | [place], | (Primary Dx); | | | | | [place] [address] | Presence of | | | | | [phone] | permanent cardiac | | | | [...] 08/25/2018 13:12 Wireless even study from | [facility] | | 07/21 until 08/22/2018. Baseline [...]
--- OUTSIDE RECORDS SUMMARY | ~2019-11-01 | XMS | Encounter Summary ---
Demographics + + + | Address | [address] | | | [place] [address] | + + + | Home Phone [...] Providers + +------+ + | Care Radioisotope Production Operator Name | Role | Phone [...] [address] | | | | | [place], | [place], | | | | | [place] [address] | [place] [address] | | | | | [phone] | [phone] | | | | | | | [...] | | | | | | [place] [address] | | | | | | [phone] | | | | | | | | +--------+ + + + + | 11/20/ | Implant | Cardiology | Daljit Singletary, | Remote Device | | 2018 | Monitor | | [address] [place] | Interrogation | | | | | [place], | (Primary Dx); | | | | | [place] [address] | Presence of | | | | | [phone] | permanent cardiac | | | | [...] [address] | [place] | [phone] | | [facility] | | [address] | | | - LABORATORY | | [...]
--- OUTSIDE RECORDS SUMMARY | ~2019-11-01 | XMS | Encounter Summary ---
Demographics + + + | Address | [address] | | | [place] [address] | + + + | Home Phone [...] Team Providers + +------+ + | Care Pyridine Recovery Operator Name | Role | Phone [...] Results | | 2013 | | MEDICINE [place] | DO [address] | | | | | [address] | [place] | | | | | [place] | [address] | | | | | [address] | | | | | | [phone] | | | +--------+ + + + [...] | | | | | | [place] [address] | | | | | | [phone] | | | | | | | | +--------+ + + + + | 11/20/ | Implant | Cardiology | Daljit Singletary, | Remote Device | | 2018 | Monitor | | MD [address] | Interrogation | | | | | [place], | (Primary Dx); | | | | | [place] [address] | Presence of | | | | | [phone] | permanent cardiac | | | | [...]
--- OUTSIDE RECORDS SUMMARY | ~2019-11-01 | XMS | Encounter Summary ---
Demographics + + + | Address | [address] | | | [place] [address] | + + + | Home Phone [...] Team Providers + +------+ + | Care Firesetter Name | Role | Phone | + +------+ + | Kirk French MD | PCP | | + +------+ + Encounter Details +--------+ + + + + | Date | Type | Department | Care Team | Description | +--------+ + + + + | 08/29/ | Hospital | [facility] | Silvia | DVT (deep venous | | 2015 | Encounter | MED CTR ULTRASOUND | [place] [address] | thrombosis), | | | | [address] [place] | [place], | bilateral (HCC) | | | | [place], [place] | [place] [address] | | | | | [address] | [phone] | | | | | [phone] | | | +--------+ + + + [...] | | | | | | | #[id number], exp 07/2016 | | | | | [...] | | | | | | [place] [address] | | | | | | [phone] | | | | | | | | +--------+ + + + + | 11/20/ | Implant | Cardiology | Daljit Singletary, | Remote Device | | 2018 | Monitor | | MD [address] | Interrogation | | | | | [place], | (Primary Dx); | | | | | [place] [address] | Presence of | | | | | [phone] | permanent cardiac | | | | [...] the groin through the popliteal fossa | [facility] | | in both lower extremities.. Grayscale [...] conveyed to the ordering provider, by the clinical nurse specialist, | | | immediately following the exam. [...] to the ordering provider, by the | |clinical nurse specialist, immediately following the exam. | | | [...] [address] | [place] | [phone] | | [facility] | | [address] | | | - IMAGING | | | | + + + + + documented in this encounter Visit Diagnoses + + | Diagnosis | + + | DVT (deep venous thrombosis), bilateral | + + documented in this encounter"
--- OUTSIDE RECORDS SUMMARY | ~2019-11-01 | XMS | Encounter Summary ---
Demographics + + + | Address | [address] | | | [place] [address] | + + + | Home Phone [...] Providers + +------+ + | Care Space Studies Faculty Member Name | Role | Phone [...] | RN | | | | | [place], | | | | | | [place] [address] | | | | | | [phone] | | | +--------+ + + + [...] W | | | | | | [place], | | | | | | [place] [address] | | | | | | [phone] | | | | | | | | +--------+ + + + + | 11/20/ | Implant | Cardiology | Daljit Singletary, | Remote Device | | 2019 | Monitor | | [address] | Interrogation | | | | | [place], | (Primary Dx); | | | | | [place] [address] | Presence of | | | | | [phone] | permanent cardiac | | | | [...]
--- OUTSIDE RECORDS SUMMARY | ~2019-11-01 | XMS | Encounter Summary ---
Demographics + + + | Address | [address] | | | [place] [address] | + + + | Home Phone [...] Providers + +------+ + | Care Supervising Fire Marshal Name | Role | Phone [...] | Telephone | [facility] [place] | Rescue, | Other (not feeling | | 2013 | | [place] [address] | PAR[place] [address] | [place]) | | | | [place], | [place], | | | | | [place] [address] | [place] [address] | | | | | [phone] | [phone] | | | | | | | [...] W | | | | | | [place], | | | | | | [place] [address] | | | | | | [phone] | | | | | | | | +--------+ + + + + | 11/20/ | Implant | Cardiology | Daljit Singletary, | Remote Device | | 2018 | Monitor | | [facility] | Interrogation | | | | | [place], | (Primary Dx); | | | | | [place] [address] | Presence of | | | | | [phone] | permanent cardiac | | | | [...]
--- OUTSIDE RECORDS SUMMARY | ~2019-11-01 | XMS | Encounter Summary ---
Demographics + + + | Address | [address] | | | [place] [address] | + + + | Home Phone [...] Team Providers + +------+ + | Care Stratigraphy Teacher Name | Role | Phone | [...] + + | 04/07/ | Telephone | [facility] | Matthew Uriarte | Medication Orders | | 2019 | | [address] | MD Tawanna [address] | (Medication ) | | | | [place], [place] | [place], [place] | | | | | [address] | [address] | | | | | [phone] | | | +--------+ + + + [...] | | | | | | [place] [address] | | | | | | [phone] | | | | | | | | +--------+ + + + + | 11/20/ | Implant | Cardiology | Daljit Singletary, | Remote Device | | 2018 | Monitor | | MD Chiquis Oro | Interrogation | | | | | [facility] [place], | (Primary Dx); | | | | | [place] [address] | Presence of | | | | | [phone] | permanent cardiac | | | | [...]
--- OUTSIDE RECORDS SUMMARY | ~2019-11-01 | XMS | Encounter Summary ---
Demographics + + + | Address | [address] [place] [address] | | | [place] [address] | + + + | Home Phone [...] [place] | | | | | [address] | | + + + + + Care Team Providers + +------+ + | Care Electronic Game Developer Name | Role | Phone | [...] | | | | ILA Crane | [facility] [place] | | | | | Mailcode: Center | [address] | | | | | for Health and | [phone] | | | | | [facility] | | | | | | [place], [place] | | | | | | [address] | | | | | | [phone] | | | +--------+ + + + [...]
--- OUTSIDE RECORDS SUMMARY | ~2019-11-01 | XMS | Encounter Summary ---
Demographics + + + | Address | [address] | | | [place] [address] | + + + | Home Phone [...] Team Providers + +------+ + | Care Carton Machine Operator Name | Role | Phone | + +------+ + PCP | Unavailable | + +------+ + Encounter Details +--------+ + + + + | Date | Type | Department | Care Team | Description | +--------+ + + + + | 10/09/ | [facility] | [facility] | Jonathan, | | | 2008 | Encounter | MED CTR EMERGENCY | Martell Cr MD [address] | | | | | CENTER [address] | [place] | | | | | [place] | [place] [address] | | | | | [address] | [phone] | | | | | [phone] | | | +--------+ + + + [...] | | | | | [place], | | | | | | [place] [address] | | | | | | [phone] | | | | | | | | +--------+ + + + + | 11/20/ | Implant | Cardiology | Daljit Singletary, | Remote Device | | 2019 | Monitor | | MD Chiquis Oro | Interrogation | | | | | [facility] [place], | (Primary Dx); | | | | | [place] [address] | Presence of | | | | | [phone] | permanent cardiac | | | | [...]
--- OUTSIDE RECORDS SUMMARY | ~2019-11-01 | XMS | Encounter Summary ---
Demographics + + + | Address | [address] | | | [place] [address] | + + + | Home Phone [...] Providers + +------+ + | Care Battery Assembler Plastic Name | Role | Phone | [...] + + | 08/04/ | Telephone | [facility] | Silvia, | Other (4 week event | | 2017 | | CARDIOLOGY [address] | [address] [place] [address] | monitor ) | | | | [place], | [place], | | | | | [place] [address] | [place] [address] | | | | | [phone] | [phone] | | | | | | | [...] | | | | | | [place], | | | | | | [place] [address] | | | | | | [phone] | | | | | | | | +--------+ + + + + | 11/20/ | Implant | Cardiology | Daljit Singletary, | Remote Device | | 2018 | Monitor | | [address] [place] | Interrogation | | | | | [place], | (Primary Dx); | | | | | [place] [address] | Presence of | | | | | [phone] | permanent cardiac | | | | [...]
--- OUTSIDE RECORDS SUMMARY | ~2019-11-01 | XMS | Encounter Summary ---
Demographics + + + | Address | [address] | | | [place] [address] | + + + | Home Phone [...] Team Providers + +------+ + | Care Fiction Writer Name | Role | Phone | [...] | | | | [place] | | [address] Phone: | | | | | CYSTO/URETER | | [phone] | | | | | O | | Fax: | | | | | W/LITHOTRIPS | | [phone] | | | | | Y &INDWELL [...] + + | 04/13/ | Hospital | [facility] | Matthew Uriarte | Preoperative | | 2019 | Encounter | MED CTR OR INTRA OP | Dahl, MD [address] | clearance (Primary | | | | [address] | [place] | Dx); Left ureteral | | | | [place], [place] | [address] | calculus; Kidney | | | | [address] | | stones | | | | [phone] | | | +--------+ + + + [...] Care Everywhere.Kidney Stones, Treating: Ureteroscopic Stone Removal (Marshallese)Stents, Ureteral (Marshallese)documented in this encounter Medications at Time of [...] + + + +---------+ + + | Norcatur-3 Fatty | CAPS, one capsule by | [...] | | | | | [place] coronary | | | | | | | artery of [place] | | | | | | | [...] W | | | | | | [place], | | | | | | [place] [address] | | | | | | [phone] | | | | | | | | +--------+ + + + + | 11/20/ | Implant | Cardiology | Daljit Singletary, | Remote Device | | 2018 | Monitor | | [facility] | Interrogation | | | | | [place], | (Primary Dx); | | | | | [place] [address] | Presence of | | | | | [phone] | permanent cardiac | | | | [...] [facility] | | | | | | at:[phone]. | | | | + + + [...] + | Performed at: 01 - [facility] [address] | REFERENCE LAB | | [place], [place] [id number] [employer] Center Attendant: Yeny Rios MD, Phone: | ARSH CASTANON | | [phone] | | + + + + + + + + | Performing | Address | City/State/Zipcode | Phone Number | | Organization | | | | + + + + + | REFERENCE LAB | [address] | [place] [address] | [phone] | | [facility] | Drive [...] ST. | [address] | [place] | [phone] | | [facility] | | [address] | | | - LABORATORY | | [...] ST. | [address] | [place] | [phone] | | [facility] | | [address] | | | - LABORATORY | | [...] [address] | [place] | [phone] | | [facility] | | [address] | | | - LABORATORY | | [...] ST. | [address] | [place] | [phone] | | [facility] | | [address] | | | - LABORATORY | | [...] | 0.92 | 0.70 - 1.30 | [facility] | | | | | mg/dL | [facility] | | | | | | MEDICAL | | | | | | CENTER - | | | | | | LABORATORY | | + + + + + + | eGFR if not | >60Comment: GLOMERULAR | >=60 | [facility] | | | | FILTRATION | mL/min/1.73m2 | [facility] | | | EGYPTIAN | RATE,ESTIMATED | | MEDICAL | | | | mL/min/1.04r7Wlzs than | | CENTER - | | [...] [address] | [place] | [phone] | | [facility] | | [address] | | | - LABORATORY | | [...] day), First | | | dose on [facility] 04/13/19 at 1400, | | | Start 8 hours after pre-op dose., | | | Post-op/Phase II | | + +---+ | | | + +---+ | albuterol 2.5 mg/3 mL nebulizer | | | solution 2.5 mg 2.5 mg, | | | Nebulization, ONCE PRN, Wheezing, | | | Starting [facility] 04/13/19 at 0917, | | | [...] HR < 40, | | | Starting [facility] 04/13/19 at 0917, For | | [...] | | | | | | | dcmvan-wbq-nxxoi use of at least | | | [...]
--- OUTSIDE RECORDS SUMMARY | ~2019-11-01 | XMS | Encounter Summary ---
Demographics + + + | Address | [address] | | | [place] [address] | + + + | Home Phone [...] Providers + +------+ + | Care Trust Manager Name | Role | Phone | [...] Eva ROUSE | | | | | [place], [place] | [address] | | | | | [address] | [place] [address] | | | | | [phone] | [phone] | | | | | | | [...] W | | | | | | [place], | | | | | | [place] [address] | | | | | | [phone] | | | | | | | | +--------+ + + + + | 11/20/ | Implant | Cardiology | Daljit Singletary, | Remote Device | | 2018 | Monitor | | [address] | Interrogation | | | | | [place], | (Primary Dx); | | | | | [place] [address] | Presence of | | | | | [phone] | permanent cardiac | | | | [...]
--- OUTSIDE RECORDS SUMMARY | ~2019-11-01 | XMS | Encounter Summary ---
Demographics + + + | Address | [address] | | | [place] [address] | + + + | Home Phone [...] Providers + +------+ + | Care Crusher Supervisor Name | Role | Phone | [...] | | CARDIOLOGY [address] | Janeen ASSISTED LIVING ASSISTANT [address] | mixed | | | | [place], | [place], | | | | | [place] [address] | [place] [address] | | | | | [phone] | | | | | | | [...] | | | | | | [place] [address] | | | | | | [phone] | | | | | | | | +--------+ + + + + | 11/20/ | Implant | Cardiology | Daljit Singletary, | Remote Device | | 2018 | Monitor | | MD [facility] | Interrogation | | | | | [place], | (Primary Dx); | | | | | [place] [address] | Presence of | | | | | [phone] | permanent cardiac | | | | [...]
--- OUTSIDE RECORDS SUMMARY | ~2019-11-01 | XMS | Encounter Summary ---
Demographics + + + | Address | [address] | | | [place] [address] | + + + | Home Phone [...] Providers + +------+ + | Care Silk Washing Machine Operator Name | Role | [...] + | 06/23/ | Office | [facility] | Silvia, | Ascending thoracic | | 2016 | Visit | CARDIOLOGY [address] | [address] | aortic aneurysm | | | | [place], | [place], | ([facility]) (Primary Dx); | | | | [place] [address] | [place] [address] | Coronary artery | | | | [phone] | [phone] | disease involving | | | | | | [place] coronary | | | | | [...] in office in 6 months. hgabby, Janeen, MAORI LIAISON ADVISER - 06/23/2016 12:45 PM PDT PATIENT NAME: Moe Sanchez : 1960: AGE: 56 y.o. PRIMARY CARE: Kirk French MD OUTPATIENT FOLLOW UP VISIT Date of Service: 06/23/2016 HISTORY OF PRESENT ILLNESS: Moe Sanchez is a 56 y.o. 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 Non-critical Coronary artery disease involving [place] coronary artery of [place] heart [facility] [...] pain. He is in class I-II of [place] [facility] [employer] n functional class. There are [...] to go back in 3 days to [place] for an attempt of ablation under general [...] this chart may have been created with SeamBLiSS voice recognition software. Occasi onal wrong-word or [...] W | | | | | | [place], | | | | | | [place] [address] | | | | | | [phone] | | | | | | | | +--------+ + + + + | 11/20/ | Implant | Cardiology | Daljit Singletary, | Remote Device | | 2018 | Monitor | | [facility] | Interrogation | | | | | [place], | (Primary Dx); | | | | | [place] [address] | Presence of | | | | | [phone] | permanent cardiac | | | | [...] the | | | | PDT | [place] coronary | results section. | | | [...] MD | | | | | | ([id number]) on 06/23/2016 | | | | | [...]
--- OUTSIDE RECORDS SUMMARY | ~2019-11-01 | XMS | Encounter Summary ---
Demographics + + + | Address | [address] | | | [place] [address] | + + + | Home Phone [...] Providers + +------+ + | Care Director Validation Name | Role | Phone | + +------+ + PCP | Unavailable | + +------+ + Encounter Details +--------+ + + + + | Date | Type | Department | Care Team | Description | +--------+ + + + + | 12/16/ | [facility] | [facility] | Naresh Mckeon | | | 2010 | Encounter | MED CTR SLEEP | MD Chaya [address] | | | | | CENTER [address] | [place] | | | | | [place] | [place] [address] | | | | | [address] | [phone] | | | | | [phone] | | | +--------+ + + + [...] | | | | | | [place] [address] | | | | | | [phone] | | | | | | | | +--------+ + + + + | 11/20/ | Implant | Cardiology | Daljit Singletary, | Remote Device | | 2019 | Monitor | | MD Chiquis Oro | Interrogation | | | | | [place], | (Primary Dx); | | | | | [place] [address] | Presence of | | | | | [phone] | permanent cardiac | | | | [...]
--- OUTSIDE RECORDS SUMMARY | ~2019-11-01 | XMS | Encounter Summary ---
Demographics + + + | Address | [address] | | | [place] [address] | + + + | Home Phone [...] Providers + +------+ + | Care Pricing Analyst Name | Role | Phone | + +------+ + | Kirk French MD | PCP | | + +------+ + Encounter Details +--------+ + + + + | Date | Type | Department | Care Team | Description | +--------+ + + + + | 12/24/ | Orders Only | [facility] | Conversion | | | 2018 | | [facility] | Transaction, | | | | | PRIMARY CARE [address] | Provider Unknown | | | | | [address] | [phone] | | | | | [place] | | | | | | [address] | | | | | | [phone] | | | +--------+ + + + [...] | | | | | | [place], | | | | | | [place] [address] | | | | | | [phone] | | | | | | | | +--------+ + + + + | 11/20/ | Implant | Cardiology | Daljit Singletary, | Remote Device | | 2018 | Monitor | | [facility] | Interrogation | | | | | [place], | (Primary Dx); | | | | | [place] [address] | Presence of | | | | | [phone] | permanent cardiac | | | | [...]
--- OUTSIDE RECORDS SUMMARY | ~2019-11-01 | XMS | Encounter Summary ---
Demographics + + + | Address | [address] | | | [place] [address] | + + + | Home Phone [...] Team Providers + +------+ + | Care Piercing Machine Operator Name | Role | Phone | + +------+ + | Kirk French MD | PCP | | + +------+ + Encounter Details +--------+ + + + + | Date | Type | Department | Care Team | Description | +--------+ + + + + | 12/23/ | Emergency | [facility] | Cristal Alexander, | Chronic neck pain; | | 2015 | | MEDICAL CENTER | DO [address] | Headache(784.0) | | | | EMERGENCY CENTER | [place] [address] | | | | | [address] | [phone] | | | | | [place], [place] | | | | | | [address] | | | | | | [phone] | | | +--------+ + + + [...] | | | | | | | #[id number], exp 07/2016 | | | | | [...] | | | | | | [place] [address] | | | | | | [phone] | | | | | | | | +--------+ + + + + | 11/20/ | Implant | Cardiology | Daljit Singletary, | Remote Device | | 2018 | Monitor | | [facility] | Interrogation | | | | | [place], | (Primary Dx); | | | | | [place] [address] | Presence of | | | | | [phone] | permanent cardiac | | | | [...] Conversion - 07/07/2019 5:05 AM PDT PINA [id number] years MaleCT | | CERVICAL SPINE WO [...]
--- OUTSIDE RECORDS SUMMARY | ~2019-11-01 | XMS | Encounter Summary ---
Demographics + + + | Address | [address] | | | [place] [address] | + + + | Home Phone [...] Providers + +------+ + | Care Speech Professor Name | Role | Phone | [...] Refill | | 2013 | | MEDICINE L[facility]IE | DO [address] | | | | | [address] | [place] | | | | | [place] | [address] | | | | | [address] | | | | | | [phone] | | | +--------+--------+ + + + [...] W | | | | | | [place], | | | | | | [place] [address] | | | | | | [phone] | | | | | | | | +--------+ + + + + | 11/20/ | Implant | Cardiology | Daljit Singletary, | Remote Device | | 2018 | Monitor | | [address] [facility] | Interrogation | | | | | [place], | (Primary Dx); | | | | | [place] [address] | Presence of | | | | | [phone] | permanent cardiac | | | | [...]
--- OUTSIDE RECORDS SUMMARY | ~2019-11-01 | XMS | Encounter Summary ---
Demographics + + + | Address | [address] | | | [place] [address] | + + + | Home Phone [...] + + | 05/13/ | Hospital [facility] | | | | 2007 | Encounter | MED CTR EMERGENCY | | | | | | [place] [address] | | | | | | [place] | | | | | | [address] | | | | | | [phone] | | | +--------+ + + + [...] | | | | | | [place] [address] | | | | | | [phone] | | | | | | | | +--------+ + + + + | 11/20/ | Implant | Cardiology | Daljit Singletary, | Remote Device | | 2018 | Monitor | | [facility] | Interrogation | | | | | [place], | (Primary Dx); | | | | | [place] [address] | Presence of | | | | | [phone] | permanent cardiac | | | | [...]
--- OUTSIDE RECORDS SUMMARY | ~2019-11-01 | XMS | Encounter Summary ---
Demographics + + + | Address | [address] | | | [place] [address] | + + + | Home Phone [...] + +------+ + | Care Mixer Operator Vacuum Pan Salt Name | Role | Phone | + [...] + + | 10/01/ | Office | [facility] | Mary Bradshaw | Injury of left foot, | | 2013 | Visit | CARE [address] | Guy Larkin MD | initial encounter | | | | [place] | [address] | (Primary Dx) | | | | [address] | [place] | | | | | [phone] | [address] | | | | | | | [...] half hours. He states he needs to last picker hi s spouse. I provided patient with Dr. Bradley's card so he may contact us for results. Patient's best phone number: [phone] Renetta Lockwood RN ary Bradshaw MD - [...] | | | | | | [place] [address] | | | | | | [phone] | | | | | | | | +--------+ + + + + | 11/20/ | Implant | Cardiology | Daljit Singletary, | Remote Device | 2018 | Monitor | | [facility] | Interrogation | | | | | [place], | (Primary Dx); | | | | | [place] [address] | Presence of | | | | | [phone] | permanent cardiac | | | | [...] + | MISCELLANEOUS LAB | | | [phone] | + +---------+ + + | MISCELANIOUS LAB | | | [phone] | + +---------+ + + documented in this encounter Visit Diagnoses + + | Diagnosis | + + | Injury of left foot, initial encounter - Primary | + + documented in this encounter
--- OUTSIDE RECORDS SUMMARY | ~2019-11-01 | XMS | Encounter Summary ---
Demographics + + + | Address | [address] | | | [place] [address] | + + + | Home Phone [...] Providers + +------+ + | Care Stone Finisher Name | Role | Phone | [...] 2012 | | Conversion Location | [address] | | | | | [phone] | [address] [place], | | | | | | [place] [address] | | | | | | [phone] | | | | | | | [...] | | | | | | [place] [address] | | | | | | [phone] | | | | | | | | +--------+ + + + + | 11/20/ | Implant | Cardiology | Daljit Singletary, | Remote Device | | 2019 | Monitor | | [facility] | Interrogation | | | | | [place], | (Primary Dx); | | | | | [place] [address] | Presence of | | | | | [phone] | permanent cardiac | | | | [...]
--- OUTSIDE RECORDS SUMMARY | ~2019-11-01 | XMS | Encounter Summary ---
Demographics + + + | Address | [address] | | | [place] [address] | + + + | Home Phone [...] Providers + +------+ + | Care Crown Wheel Assembler Name | Role | Phone | [...] 2012 | | CARDIOLOGY [address] | ANALYST PROGRAMMER [address] | faxed) | | | | [place], | [place] [facility], [place] | | | | | [place] [address] | [address] | | | | | [phone] | | | +--------+ + + + [...] W | | | | | | [place], | | | | | | [place] [address] | | | | | | [phone] | | | | | | | | +--------+ + + + + | 11/20/ | Implant | Cardiology | Daljit Singletary, | Remote Device | | 2018 | Monitor | | [facility] | Interrogation | | | | | [place], | (Primary Dx); | | | | | [place] [address] | Presence of | | | | | [phone] | permanent cardiac | | | | [...]
--- OUTSIDE RECORDS SUMMARY | ~2019-11-01 | XMS | Encounter Summary ---
Demographics + + + | Address | [address] | | | [place] [address] | + + + | Home Phone [...] + +------+ + | Care Shell Trim Operator Name | Role | Phone [...] + | 12/23/ | Telephone | [facility] | Silvia, | Lab Order (due for | | 2017 | | CARDIOLOGY [address] | Janeen, PRESCHOOL AIDE [address] | fasting labs) | | | | [place], | [place], | | | | | [place] [address] | [place] [address] | | | | | [phone] | [phone] | | | | | | | [...] [place], | | | | | | [place] [address] | | | | | | [phone] | | | | | | | | +--------+ + + + + | 11/20/ | Implant | Cardiology | Daljit Singletary, | Remote Device | 2018 | Monitor | | [facility] | Interrogation | | | | | [place], | (Primary Dx); | | | | | [place] [address] | Presence of | | | | | [phone] | permanent cardiac | | | | [...]
--- OUTSIDE RECORDS SUMMARY | ~2019-11-01 | XMS | Encounter Summary ---
Demographics + + + | Address | [address] | | | [place] [address] | + + + | Home Phone [...] Providers + +------+ + | Care Counter Sales Person Name | Role | Phone | [...] | 02/27/ | Telephone | [facility] | [place], | Chest Pain (Patient | | 2013 | | CARDIOLOGY [address] | Janeen, SOC ANALYST [address] | having chest pain) | | | | [place], | [place], | | | | | [place] [address] | [place] [address] | | | | | [phone] | [phone] | | | | | | | [...] | | | | | [place], | | | | | | [place] [address] | | | | | | [phone] | | | | | | | | +--------+ + + + + | 11/20/ | Implant | Cardiology | Daljit Singletary, | Remote Device | | 2018 | Monitor | | [address] [place] | Interrogation | | | | | [place], | (Primary Dx); | | | | | [place] [address] | Presence of | | | | | [phone] | permanent cardiac | | | | [...]
--- OUTSIDE RECORDS SUMMARY | ~2019-11-01 | XMS | Encounter Summary ---
Demographics + + + | Address | [address] [place] [address] | | | [place] [address] | + + + | Home Phone [...] [place] | | | | | [address] | | + + + + + Care Team Providers + +------+ + | Care Cloud Infrastructure Architect Name | Role | Phone | [...] as of this encounter Progress Notes Interface, Supervisor Plastic Sheets In - 07/19/2006 3:05 AM PDTCLINIC DATE: 06/13/2002 [facility] REFERRING PHYSICIAN: Eugene Vera D.O. [address] [place] [address] Mr. Sanchez is a new patient. He [...] proceed. Martell Allen M.D. ELIZABETH / KATTY [id number] / [id number] / [id number] / [id number] cc: Eugene Vera D.O. [address] [place] [id number] signed by Interface, Supervisor Plastic Sheets In at 07/19/2006 3:0 5 AM PDTdocumented in this encounter Plan of Treatment Not on filedocumented as of this encounter Visit Diagnoses Not on filedocumented in this encounter
--- OUTSIDE RECORDS SUMMARY | ~2019-11-01 | XMS | Encounter Summary ---
Demographics + + + | Address | [address] | | | [place] [address] | + + + | Home Phone [...] Providers + +------+ + | Care Freelance Data Entry Name | Role | Phone | + [...] + | 08/19/ | Telephone | [facility] | Silvia, | Other (patient | | 2016 | | CARDIOLOGY [address] | [place] [address] | having issues with | | | | [place], | [place], | high blood pressure) | | | | [place] [address] | [place] [address] | | | | | [phone] | [phone] | | | | | | | [...] W | | | | | | [place], | | | | | | [place] [address] | | | | | | [phone] | | | | | | | | +--------+ + + + + | 11/20/ | Implant | Cardiology | Daljit Singletary, | Remote Device | | 2019 | Monitor | | MD Chiquis Oro | Interrogation | | | | | [place], | (Primary Dx); | | | | | [place] [address] | Presence of | | | | | [phone] | permanent cardiac | | | | [...]
--- OUTSIDE RECORDS SUMMARY | ~2019-11-01 | XMS | Encounter Summary ---
Demographics + + + | Address | [address] [place] [address] | | | [place] [address] | + + + | Home Phone [...] [place] | | | | | [address] | | + + + + + Care Team Providers + +------+ + | Care Finance Mgr Name | Role | Phone | [...] | Center at [facility] [address] | Gastroenterology | Gastroenterology | | | | ILA Tremayne Crane | | | | | | Mailcode: Union | | | | | | [facility] and | | | | | | [place] [address] | | | | | | [place], [place] | | | | | | [address] | | | | | | [phone] | | | +--------+ + + + [...]
--- OUTSIDE RECORDS SUMMARY | ~2019-11-01 | XMS | Encounter Summary ---
Demographics + + + | Address | [address] | | | [place] [address] | + + + | Home Phone [...] Providers + +------+ + | Care Heel Stiffener Name | Role | Phone | + [...] 2012 | | CARDIOLOGY [address] | VIDEO GAME TESTER [address] | | | | | [place], | [facility] [place] [facility], [place] | | | | | [place] [address] | [address] | | | | | [phone] | | | +--------+ + + + [...] | | | | | | [place] [address] | | | | | | [phone] | | | | | | | | +--------+ + + + + | 11/20/ | Implant | Cardiology | Daljit Singletary, | Remote Device | | 2018 | Monitor | | MD Chiquis Oro | Interrogation | | | | | [place], | (Primary Dx); | | | | | [place] [address] | Presence of | | | | | [phone] | permanent cardiac | | | | [...]
--- OUTSIDE RECORDS SUMMARY | ~2019-11-01 | XMS | Encounter Summary ---
Demographics + + + | Address | [address] | | | [place] [address] | + + + | Home Phone [...] Providers + +------+ + | Care Electrical Prospecting Engineer Name | Role | Phone | [...] + + | 02/21/ | Office | [facility] | Silvia, | Coronary artery | | 2019 | Visit | CARDIOLOGY [address] | PARISA [place] [address] | disease involving | | | | [place], | [place], | [place] coronary | | | | [place] [address] | [place] [address] | artery of [place] | | | | [phone] | [phone] | heart without angina | | | [...] of non-critical coronary artery d isease involving [place] coronary artery of [place] heart without angina pectoris, essential h ypertension, [...] stay active. He enjoys hunting in his [employer] t sherin. He has not had any [...] Preventative health care Coronary artery disease involving [place] coronary artery of [place] heart without angina pectoris Cannabis abuse, daily [...] 3RD DOSE, CALL 911 100 tablet 3 [place]-3 Fatty Acids (SALMON OIL-1000 PO) CAPS, one capsule by mouth daily twice daily ondansetron (ZOFRAN ODT) 4 mg disintegrating tablet Take 4 mg by mouth. ONE TOUCH DELICA LANCETS [facility] [...] was found Confirmed by ANGELA MARADIAGA MD ([id number]) on 01/03/2019 8:10:39 PM LAB RESULTS reviewed during visit today primarily from [facility]: LIPID Lab Results Component Value [...] 15 01/02/2019 I reviewed records from [facility] for angiogram results on 019 which is summarized in the HPI. RESULTS- I reviewed reports from [facility]: No results found. Left heart [...] ASSESSMENT: 1. Non-critical Coronary artery disease involving [place] coronary artery of [place] heart [facility] angina pectoris: A.Normal exercise sestamibi [...] performed by Dr Juan Diego Gambino at [facility] on 01/30/2013.Patient had spontaneous PVC's fro m [...] ablation lesion was performed and the area, sabien use an area was right next to [...] of presyncope 05/28/10 [facility], thought to have vasovagal symptoms. B. [...] this chart may have been created with [employer]oon[employer] voice recognition software. Occasi onal wrong-word or [...] [place], | | | | | | [place] [address] | | | | | | [phone] | | | | | | | | +--------+ + + + + | 11/20/ | Implant | Cardiology | Daljit Singletary, | Remote Device | | 2018 | Monitor | | MD [address] [place] | Interrogation | | | | | [place], | (Primary Dx); | | | | | [place] [address] | Presence of | | | | | [phone] | permanent cardiac | | | | [...] on[place] heart without | | angina pectoris - Primary | + + | Symptomatic PVCs Other premature beats | + + | Essential hypertension Unspecified essential hypertension | + + documented in this encounter
--- OUTSIDE RECORDS SUMMARY | ~2019-11-01 | XMS | Encounter Summary ---
Demographics + + + | Address | [address] | | | [place] [address] | + + + | Home Phone [...] Team Providers + +------+ + | Care Halfway House Counselor Name | Role | Phone | [...] CARDIOLOGY [address] | MD Sim [place] | reprogramming/check | | | | [place], | [place], | DO NOT DELETE | | | | [place] [address] | [place] [address] | (Primary Dx); | | | | [phone] | [phone] | Pacemaker - | | | | [...] | | | | | | [place] [address] | | | | | | [phone] | | | | | | | | +--------+ + + + + | 11/20/ | Implant | Cardiology | Daljit Singletary, | Remote Device | | 2019 | Monitor | | [address] [facility] | Interrogation | | | | | [place], | (Primary Dx); | | | | | [place] [address] | Presence of | | | | | [phone] | permanent cardiac | | | | [...] by Kailey Molina | | | [place] rPuitt Underlying rhythm: sinus bradycardia 52 beats.1 mode [...]
--- OUTSIDE RECORDS SUMMARY | ~2019-11-01 | XMS | Encounter Summary ---
Demographics + + + | Address | [address] | | | [place] [address] | + + + | Home Phone [...] Team Providers + +------+ + | Care Ciaio Lumite Injector Name | Role | Phone | + +------+ + PCP | Unavailable | + +------+ + Encounter Details +--------+ + + + + | Date | Type | Department | Care Team | Description | +--------+ + + + + | 10/09/ | [facility] | [facility] | Jonathan, | | | 2008 | Encounter | MED CTR EMERGENCY | Martell Cr MD [address] | | | | | CENTER [address] [facility] | [place] | | | | | [place] | [place] [address] | | | | | [address] | [phone] | | | | | [phone] | | | +--------+ + + + [...] | | | | | [facility] [place], | | | | | | [place] [address] | | | | | | [phone] | | | | | | | | +--------+ + + + + | 11/20/ | Implant | Cardiology | Daljit Singletary, | Remote Device | | 2019 | Monitor | | MD Chiquis Oro | Interrogation | | | | | [place], | (Primary Dx); | | | | | [place] [address] | Presence of | | | | | [phone] | permanent cardiac | | | | [...]
--- OUTSIDE RECORDS SUMMARY | ~2019-11-01 | XMS | Encounter Summary ---
Demographics + + + | Address | [address] | | | [place] [address] | + + + | Home Phone [...] Providers + +------+ + | Care Process Helper Name | Role | Phone | [...] | | | [place], [place] | [place] [address] | | | | | | [address] | Phone: | | | | | | Phone: | [phone] | | | | | | [phone] | Fax: | | | | | | Fax: | [phone] | | | | | | [phone] | | +--------+ + + + + + Reason for Visit + + + | Reason | Comments | + + + | Medicare Wellness | | + + + Encounter Details +--------+---------+ + + + | Date | Type | Department | Care Team | Description | +--------+---------+ + + + | 07/25/ | Office | [facility] | Michael Amanda, | Preventative health | | 2014 | Visit | MEDICINE [place] | DO [address] | care (Primary Dx); | | | | [address] | [place] | Cannabis abuse, | | | | [place] | [address] | daily use; Urinary | | | | [address] | | frequency; | | | | [phone] | | Incontinence; | | | | [...] needed for Chest pain. 25 tablet 12 [place]-3 Fatty Acids (SALMON OIL-1000 PO) CAPS, [...] as Nurse Practitioner (Cardiology) FENG Chou (Physician Platform Attendant) Current Medicare Suppliers: [facility] - [place], [place] - [address] [place] [address] [facility] - [place], [place] - [address] [place] [address] HEALTH RISK ASSESSMENT: : The patient or [...] following health maintenance items are reviewed in [facility] and correct as of today: Health [...] no kevin in the usual sections in Melon #usemelon. documented in this en counter Plan of Treatment +--------+ + + + + | Date | Type | Specialty | Care Team | Description | +--------+ + + + + | 11/09/ | Office | Cardiology | Silvia, | | | 2018 | Visit | | PARISA [place] [address] | | | | | | [place], | | | | | | [place] [address] | | | | | | [phone] | | | | | | | | +--------+ + + + + | 11/20/ | Implant | Cardiology | Joshcrispincherelle Shaistakenneth, | Remote Device | | 2018 | Monitor | | 401 [facility] | Interrogation | | | | | [place], | (Primary Dx); | | | | | [place] [address] | Presence of | | | | | [phone] | permanent cardiac | | | | [...] - Primary Routine general medical examination at [facility] | | care facility | + + [...]
--- OUTSIDE RECORDS SUMMARY | ~2019-11-01 | XMS | Encounter Summary ---
Demographics + + + | Address | [address] | | | [place] [address] | + + + | Home Phone [...] Providers + +------+ + | Care Multimedia Author Name | Role | Phone | + [...] + + | 04/24/ | Office | [facility] | Silvia, | Symptomatic PVCs | | 2012 | Visit | CARDIOLOGY [address] | [address] | (Primary Dx); CAD; | | | | [place], | [place], | Hyperlipidemia; | | | | [place] [address] | [place] [address] | PACEMAKER, PERMANENT | | | | [phone] | [phone] | - [employer] | | | | [...] He underwent electrophysiologic study for supraventricular arrhythmia. Klely gallagher, patient was not able to stay [...] tablet by mouth Daily. 30 tablet 6 [place]-3 Fatty Acids (SALMON OIL-1000 PO) CAPS, one [...] Reviewed records from PCP and notes from [facility]. Assessment: 1. Symptomatic PVCs status post [...] to go back in 3 days to [place] for an attempt of ablation under [...] than 30 minute waitin g period. A "chair" of ablation lesion was performed and [...] He is upgraded to class I of [place] Heart Ass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 There are no [...] made to ensure accuracy; however, inadvertent computerized banker mason errors may be pre sent. documented in this encounter Plan of Treatment +--------+ + + + + | Date | Type | Specialty | Care Team | Description | +--------+ + + + + | 11/09/ | Office | Cardiology | Silvia, | | | 2018 | Visit | | PARISA [address] | | | | | | [place], | | | | | | [place] [address] | | | | | | [phone] | | | | | | | | +--------+ + + + + | 11/20/ | Implant | Cardiology | Daljit Singletary, | Remote Device | | 2018 | Monitor | | MD Sim [facility] | Interrogation | | | | | [place], | (Primary Dx); | | | | | [place] [address] | Presence of | | | | | [phone] | permanent cardiac | | | | [...] Coronary atherosclerosis of unspecified type of vessel, north fork or graft | + + | Hyperlipidemia Other and unspecified hyperlipidemia | + + | PACEMAKER, PERMANENT - [employer] 06/14/09GRANT Cardiac pacemaker in situ | + + documented in this encounter
--- OUTSIDE RECORDS SUMMARY | ~2019-11-01 | XMS | Encounter Summary ---
Demographics + + + | Address | [address] | | | [place] [address] | + + + | Home Phone [...] Providers + +------+ + | Care Shoe Sprayer Name | Role | Phone | [...] | Refill | [facility] [place] | [place], | Medication Refill | | 2014 | | CARDIOLOGY [address] | [place] [address] | | | | | [place], | [place], | | | | | [place] [address] | [place] [address] | | | | | [phone] | [phone] | | | | | | | [...] | | | | | | [place], | | | | | | [place] [address] | | | | | | [phone] | | | | | | | | +--------+ + + + + | 11/20/ | Implant | Cardiology | Daljit Singletary, | Remote Device | | 2019 | Monitor | | [address] [facility] | Interrogation | | | | | [place], | (Primary Dx); | | | | | [place] [address] | Presence of | | | | | [phone] | permanent cardiac | | | | [...]
--- OUTSIDE RECORDS SUMMARY | ~2019-11-01 | XMS | Encounter Summary ---
Demographics + + + | Address | [address] | | | [place] [address] | + + + | Home Phone [...] Providers + +------+ + | Care Supervisor Aircraft Cleaning Name | Role | Phone | + [...] Provider Unknown | | | | | [place], [place] | [phone] | | | | | [address] | | | | | | [phone] | | | +--------+ + + + [...] + + + +---------+ + + | [place]-3 Fatty | CAPS, one capsule by | [...] | | | | | | | #[id number], exp 07/2016 | | | | | [...] | | | | | | [place] [address] | | | | | | [phone] | | | | | | | | +--------+ + + + + | 11/20/ | Implant | Cardiology | Daljit Singletary, | Remote Device | | 2018 | Monitor | | MD Chiquis Oro | Interrogation | | | | | [place], | (Primary Dx); | | | | | [place] [address] | Presence of | | | | | [phone] | permanent cardiac | | | | [...]
--- OUTSIDE RECORDS SUMMARY | ~2019-11-01 | XMS | Encounter Summary ---
Demographics + + + | Address | [address] | | | [place] [address] | + + + | Home Phone [...] Team Providers + +------+ + | Care Ladle Mechanic Name | Role | Phone | + +------+ + PCP | Unavailable | + +------+ + Encounter Details +--------+ + + + + | Date | Type | Department | Care Team | Description | +--------+ + + + + | 11/14/ | [facility] | [facility] | William Hirsch | | | 1999 | Encounter | MED CTR EMERGENCY | MD Cristobal [address] | | | | | CENTER [address] | [address] [place] | | | | | [place] | [place] [address] | | | | | [address] | [phone] | | | | | [phone] | | | +--------+ + + + [...] | | | | | | [place] [address] | | | | | | [phone] | | | | | | | | +--------+ + + + + | 11/20/ | Implant | Cardiology | Daljit Singletary, | Remote Device | | 2018 | Monitor | | MD Chiquis Oro | Interrogation | | | | | [place], | (Primary Dx); | | | | | [place] [address] | Presence of | | | | | [phone] | permanent cardiac | | | | [...]
--- OUTSIDE RECORDS SUMMARY | ~2019-11-01 | XMS | Encounter Summary ---
Demographics + + + | Address | [address] | | | [place] [address] | + + + | Home Phone [...] + +------+ + | Care Tax Compliance Agent Name | Role | Phone | [...] Provider Unknown | | | | | [place], [place] | [phone] | | | | | [address] | | | | | | [phone] | | | +--------+ + + + [...] + + + +---------+ + + | [place]-3 Fatty | CAPS, one capsule by | [...] | | | | | | | #[id number], exp 07/2016 | | | | | [...] | | | | | | [place] [address] | | | | | | [phone] | | | | | | | | +--------+ + + + + | 11/20/ | Implant | Cardiology | Daljit Singletary, | Remote Device | | 2018 | Monitor | | MD Chiquis Oro | Interrogation | | | | | [place], | (Primary Dx); | | | | | [place] [address] | Presence of | | | | | [phone] | permanent cardiac | | | | [...]
--- OUTSIDE RECORDS SUMMARY | ~2019-11-01 | XMS | Encounter Summary ---
Demographics + + + | Address | [address] | | | [place] [address] | + + + | Home Phone [...] Providers + +------+ + | Care Public Relations Studies Director Name | Role | Phone | [...] | on | GASTROENTEROLOGY | [address], [place] | | | | | [address] | [address] [place], [place] | | | | | [address] [place], [place] | [address] | | | | | [address] | | | | | | [phone] | | | +--------+ + + + [...] | | | | | | [place] [address] | | | | | | [phone] | | | | | | | | +--------+ + + + + | 11/20/ | Implant | Cardiology | Daljit Singletary, | Remote Device | 2018 | Monitor | | [address] [facility] | Interrogation | | | | | [place], | (Primary Dx); | | | | | [place] [address] | Presence of | | | | | [phone] | permanent cardiac | | | | [...]
--- OUTSIDE RECORDS SUMMARY | ~2019-11-01 | XMS | Encounter Summary ---
Demographics + + + | Address | [address] | | | [place] [address] | + + + | Home Phone [...] Providers + +------+ + | Care Inspector Rubber Stamp Die Name | Role | Phone | + [...] + + | 08/30/ | Refill | [facility] | Kirk French | Medication Refill | | 2019 | | [facility] | MD [address] | | | | | PRIMARY CARE [address] | | | | | [address] | [place] [address] | | | | | [place], [place] | [phone] | | | | | [address] | | | | | | [phone] | | | +--------+--------+ + + + [...] | | | | | | [place] [address] | | | | | | [phone] | | | | | | | | +--------+ + + + + | 11/20/ | Implant | Cardiology | Daljit Singletary, | Remote Device | | 2018 | Monitor | | MD Chiquis Oro | Interrogation | | | | | [place], | (Primary Dx); | | | | | [place] [address] | Presence of | | | | | [phone] | permanent cardiac | | | | [...]
--- OUTSIDE RECORDS SUMMARY | ~2019-11-01 | XMS | Encounter Summary ---
Demographics + + + | Address | [address] | | | [place] [address] | + + + | Home Phone [...] Team Providers + +------+ + | Care Esl Professor Name | Role | Phone | + +------+ + PCP | Unavailable | + +------+ + Encounter Details +--------+ + + + + | Date | Type | Department | Care Team | Description | +--------+ + + + + | 09/13/ | [facility] | [facility] | Jonathan, | | | 2009 | Encounter | MED CTR EMERGENCY | Martell Cr MD [address] | | | | | CENTER [address] | [place] | | | | | [place] | [place] [address] | | | | | [address] | [phone] | | | | | [phone] | | | +--------+ + + + [...] W | | | | | | [place], | | | | | | [place] [address] | | | | | | [phone] | | | | | | | | +--------+ + + + + | 11/20/ | Implant | Cardiology | Daljit Singletary, | Remote Device | | 2019 | Monitor | | MD Chiquis Oro | Interrogation | | | | | [place], | (Primary Dx); | | | | | [place] [address] | Presence of | | | | | [phone] | permanent cardiac | | | | [...]
--- OUTSIDE RECORDS SUMMARY | ~2019-11-01 | XMS | Encounter Summary ---
Demographics + + + | Address | [address] | | | [place] [address] | + + + | Home Phone [...] Providers + +------+ + | Care Farm Appraiser Name | Role | Phone | [...] | CARDIOLOGY [address] | [address] | card ) | | | | [place], | [place], | | | | | [place] [address] | [place] [address] | | | | | [phone] | [phone] | | | | | | | [...] | | | | | | [place] [address] | | | | | | [phone] | | | | | | | | +--------+ + + + + | 11/20/ | Implant | Cardiology | Daljit Singletary, | Remote Device | | 2018 | Monitor | | [address] [facility] | Interrogation | | | | | [place], | (Primary Dx); | | | | | [place] [address] | Presence of | | | | | [phone] | permanent cardiac | | | | [...]
--- OUTSIDE RECORDS SUMMARY | ~2019-11-01 | XMS | Encounter Summary ---
Demographics + + + | Address | [address] | | | [place] [address] | + + + | Home Phone [...] Providers + +------+ + | Care Financial Accountant Name | Role | Phone | [...] | 06/22/ | Telephone | [facility] | Vasiliy Michael Kelsey, | Eye Problem | | 2012 | | [facility] [place] | DO [address] | | | | | [address] | [place] | | | | | [place] | [address] | | | | | [address] | | | | | | [phone] | | | +--------+ + + + [...] W | | | | | | [place], | | | | | | [place] [address] | | | | | | [phone] | | | | | | | | +--------+ + + + + | 11/20/ | Implant | Cardiology | Daljit Singletary, | Remote Device | | 2018 | Monitor | | [address] [facility] | Interrogation | | | | | [place], | (Primary Dx); | | | | | [place] [address] | Presence of | | | | | [phone] | permanent cardiac | | | | [...]
--- OUTSIDE RECORDS SUMMARY | ~2019-11-01 | XMS | Encounter Summary ---
Demographics + + + | Address | [address] | | | [place] [address] | + + + | Home Phone [...] Team Providers + +------+ + | Care Neuro Urologist Name | Role | Phone | + +------+ + PCP | Unavailable | + +------+ + Encounter Details +--------+ + + + + | Date | Type | Department | Care Team | Description | +--------+ + + + + | 05/28/ | [facility] | [facility] | Evan Gandara MD | | | 2008 | Encounter | MED CTR LABORATORY | [address] [facility] | | | | | [address] | [place] | | | | | [place] | [address] | | | | | [address] | | | | | | [phone] | | | +--------+ + + + [...] | | | | | | [place] [address] | | | | | | [phone] | | | | | | | | +--------+ + + + + | 11/20/ | Implant | Cardiology | Daljit Singletary, | Remote Device | | 2019 | Monitor | | MD Chiquis Oro | Interrogation | | | | | [place], | (Primary Dx); | | | | | [place] [address] | Presence of | | | | | [phone] | permanent cardiac | | | | [...]
--- OUTSIDE RECORDS SUMMARY | ~2019-11-01 | XMS | Encounter Summary ---
Demographics + + + | Address | [address] | | | [place] [address] | + + + | Home Phone [...] Providers + +------+ + | Care Rail Operations Controller Name | Role | Phone | [...] [place] | | | | | [place] | | [address] Phone: | | | | | CYSTO/URETER | | [phone] | | | | | O | | Fax: | | | | | W/LITHOTRIPS | | [phone] | | | | | Y &INDWELL [...] | | | | | [address] | [place] | | | | | [place] | [address] | | | | | [address] | | | | | | [phone] | | | +--------+ + + + [...] +----+---+ + + | | 0 | [place] | | | | 8 | 43-degrees | | | | 2 | | | | | 7 | | | +----+---+ + + | | 0 | First | | | | 8 | Inc/Proc St | | | | 2 | | | | | 8 | | | +----+---+ + + | | 0 | [place] off | | | | 9 | [...] 04/13/19 1219 by | | eral | [id number] catheter system; | Dominga Steen RN | [...] | | | | | | [place] [address] | | | | | | [phone] | | | | | | | | +--------+ + + + + | 11/20/ | Implant | Cardiology | Daljit Singletary, | Remote Device | | 2018 | Monitor | | MD [place] | Interrogation | | | | | [place], | (Primary Dx); | | | | | [place] [address] | Presence of | | | | | [phone] | permanent cardiac | | | | [...] 8:23 | | | | | Starting [facility] 04/13/19 at 0823, | | AM [...]
--- OUTSIDE RECORDS SUMMARY | ~2019-11-01 | XMS | Encounter Summary ---
Demographics + + + | Address | [address] | | | [place] [address] | + + + | Home Phone [...] Providers + +------+ + | Care Turbine Room Attendant Name | Role | Phone [...] [address] | | | | | [place], | [place], | | | | | [place] [address] | [place] [address] | | | | | [phone] | [phone] | | | | | | | [...] | | | | | | [place] [address] | | | | | | [phone] | | | | | | | | +--------+ + + + + | 11/20/ | Implant | Cardiology | Daljit Singletary, | Remote Device | | 2018 | Monitor | | [address] [place] [place] | Interrogation | | | | | [place], | (Primary Dx); | | | | | [place] [address] | Presence of | | | | | [phone] | permanent cardiac | | | | [...]
--- OUTSIDE RECORDS SUMMARY | ~2019-11-01 | XMS | Encounter Summary ---
Demographics + + + | Address | [address] | | | [place] [address] | + + + | Home Phone [...] Organization | [facility] | | | and [...] Providers + +------+ + | Care Outpatient Dietitian Name | Role | Phone | + +------+ + | Kirk French MD | PCP | | + +------+ + Encounter Details +--------+ + + + + | Date | Type | Department | Care Team | Description | +--------+ + + + + | 01/05/ | Anesthesia | [facility] | Jarett Barakat | | | 2019 | Event | [facility] OP | P, MD [address] | | | | | [address] | [place], [place] | | | | | [place], [place] | [address] | | | | | [address] | [phone] | | | | | [phone] | | | +--------+ + + + [...] explained and consent obtained. Patient transported to [facility], | | | 4 | | [...] | 01/05/19950 by | | eral | [id number]-zel-tqirfp catheter system; | Kasie Natarajan RN | [...] | | | | | | [place] [address] | | | | | | [phone] | | | | | | | | +--------+ + + + + | 11/20/ | Implant | Cardiology | Daljit Singletary, | Remote Device | | 2018 | Monitor | | [facility] | Interrogation | | | | | [place], | (Primary Dx); | | | | | [place] [address] | Presence of | | | | | [phone] | permanent cardiac | | | | [...] | | | | | Vomiting, Starting [facility] 01/05/19 at | | AM PST [...]
--- OUTSIDE RECORDS SUMMARY | ~2019-11-01 | XMS | Encounter Summary ---
Demographics + + + | Address | [address] | | | [place] [address] | + + + | Home Phone [...] Providers + +------+ + | Care Application Design Engineer Name | Role | Phone [...] | | CARDIOLOGY [address] | Janeen MAXILLOFACIAL PROSTHETICS DENTIST [address] | | | | | [place], | [place], | | | | | [place] [address] | [place] [address] | | | | | [phone] | | | | | | | [...] W | | | | | | [place], | | | | | | [place] [address] | | | | | | [phone] | | | | | | | | +--------+ + + + + | 11/20/ | Implant | Cardiology | Daljit Singletary, | Remote Device | | 2018 | Monitor | | MD [address]is [address] | Interrogation | | | | | [place], | (Primary Dx); | | | | | [place] [address] | Presence of | | | | | [phone] | permanent cardiac | | | | [...]
--- OUTSIDE RECORDS SUMMARY | ~2019-11-01 | XMS | Encounter Summary ---
Demographics + + + | Address | [address] | | | [place] [address] | + + + | Home Phone [...] Providers + +------+ + | Care Body And Fender Mechanic Apprentice Name | Role | Phone [...] | | | | CENTER [address] | [place], [place] | (Primary Dx) | | | | [place], [place] | [address] | | | | | [address] | | | | | | [phone] | | | +--------+ + + + [...] + + + +---------+ + + | Fincastle-3 Fatty | CAPS, one capsule by | [...] W | | | | | | [place], | | | | | | [place] [address] | | | | | | [phone] | | | | | | | | +--------+ + + + + | 11/20/ | Implant | Cardiology | Daljit Singletary, | Remote Device | | 2018 | Monitor | | [address] [facility] | Interrogation | | | | | [place], | (Primary Dx); | | | | | [place] [address] | Presence of | | | | | [phone] | permanent cardiac | | | | [...] | mL/min/1.73m2 | MICHELLE | | | GUINEAN | RATE,ESTIMATED | | MEDICAL | | | | mL/min/1.62o7Kcyr than | | CENTER - | | [...] ST. | [address] | [place] | [phone] | | [facility] | | [address] | | | - LABORATORY | | [...] | | | | ANGELA MARADIAGA MD ([id number]) | | | | | | on [...] | | | | | | [employer] | | | | | [...] ST. | [address] | [place], [place] | [phone] | | [facility] | | [address] | | | - LABORATORY | | [...] | [address] | [place], [place] | [phone] | | [facility] | | [address] | | | - LABORATORY | | [...]
--- OUTSIDE RECORDS SUMMARY | ~2019-11-01 | XMS | Encounter Summary ---
Demographics + + + | Address | [address] | | | [place] [address] | + + + | Home Phone [...] Team Providers + +------+ + | Care Architect Marine Name | Role | Phone | [...] + | 12/23/ | Telephone | [facility] | Daljit Singletary, | Other (question | | 2015 | | CARDIOLOGY [address] | [address] | about diet | | | | [place], | [place], | medication) | | | | [place] [address] | [place] [address] | | | | | [phone] | [phone] | | | | | | | [...] W | | | | | | [place], | | | | | | [place] [address] | | | | | | [phone] | | | | | | | | +--------+ + + + + | 11/20/ | Implant | Cardiology | Daljit Singletary, | Remote Device | | 2018 | Monitor | | MD [address] [place] | Interrogation | | | | | [place], | (Primary Dx); | | | | | [place] [address] | Presence of | | | | | [phone] | permanent cardiac | | | | [...]
--- OUTSIDE RECORDS SUMMARY | ~2019-11-01 | XMS | Encounter Summary ---
Demographics + + + | Address | [address] | | | [place] [address] | + + + | Home Phone [...] + +------+ + | Care Senior Sales Consultant Name | Role | Phone [...] [address] | | | | | | [place], [place] | (Fax) | | | | | [address] | | | | | | [phone] | | | +--------+ + + + [...] | | | | | | [place] [address] | | | | | | [phone] | | | | | | | | +--------+ + + + + | 11/20/ | Implant | Cardiology | Daljit Singletary, | Remote Device | | 2018 | Monitor | | [address] [facility] | Interrogation | | | | | [place], | (Primary Dx); | | | | | [place] [address] | Presence of | | | | | [phone] | permanent cardiac | | | | [...]
--- OUTSIDE RECORDS SUMMARY | ~2019-11-01 | XMS | Encounter Summary ---
Demographics + + + | Address | [address] | | | [place] [address] | + + + | Home Phone [...] Providers + +------+ + | Care Teacher Tutor Name | Role | Phone | + +------+ + | Michael Amanda DO | PCP | | + +------+ + Encounter Details +--------+ + + + + | Date | Type | Department | Care Team | Description | +--------+ + + + + | 02/27/ | Hospital | [facility] | Shelly Carter DO | Chest pain; | | 2013 - | Encounter | [facility] | [address] | Pacemaker; | | | | CLINICAL DECISION | [place] [address] | Mild dehydration | | 02/28/ | | [address] [facility] | [phone] | | | 2013 | | [place], [place] | | | | | | [address] | | | | | | [phone] | | | +--------+ + + + [...] 2252 Date of Service: 02/28/141044 Status: Addendum Core Inspector: Dev Montano MD (Physician) Related Notes: Original Note by Dev Montano MD (Physician) filed at 02/28/14 1107 Patient ID: Pina Gay [id number] y.o. 1960 Admit date: 02/27/2014 Discharge [...] - 99 mg/dL Final Testing performed at [address] [address] BUN Date Value Range Status 02/28/2014 15 8 - 25 mg/dL Final Testing performed at [address] [address] CREATININE Date Value Range Status 02/28/2014 0.74 0.70 - 1.30 mg/dL Final Testing performed at [address] [address] BUN/CREAT Date Value Range Status 02/28/2014 20 Final Testing performed at [address] [address] TOTAL PROTEIN Date Value Range Status 02/28/2014 6.1* 6.3 - 8.2 g/dL Final Testing performed at [address] [address] GLOBULIN Date Value Range Status 02/28/2014 2.1 1.3 - 4.9 g/dL Final Testing performed at [address] [address] TBIL Date Value Range Status 02/28/2014 1.4 0.1 - 1.5 mg/dL Final Testing performed at [address] [address] ALT Date Value Range Status 02/28/2014 27 10 - 65 U/L Final Testing performed at [address] [address] AST Date Value Range Status 02/28/2014 31 10 - 45 U/L Final Testing performed at [address] [address] SODIUM Date Value Range Status 02/28/2014 138 135 - 143 mmol/L Final Testing performed at [facility], [address] [place] [address] POTASSIUM Date Value Range Status 02/28/2014 3.4* 3.5 - 4.9 mmol/L Final Testing performed at [facility], [address] [place] [address] CHLORIDE Date Value Range Status 02/28/2014 108 99 - 109 mmol/L Final Testing performed at [address] [address] CO2 Date Value Range Status 02/28/2014 21* 23 - 32 mmol/L Final Testing performed at [facility], [address] [place] [address] ANION GAP AGAP Date Value Range Status 02/28/2014 12 5 - 20 mmol/L Final Testing performed at [facility], [address] [place] [address] Xr Chest Pa And Lateral 02/27/2014 PINA [...] 3-D reconstructi ons were performed using the [employer] 3-D software and sent to PACS. Oral Contrast: None I V contrast: 100 mL IsoVue 370 COMPARISON: None. 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 Singletary in [place] in December 2013 at [facility] which showed minimal occlusive disease. One artery was 25% and another was 15%, per patient. I requested official cardiac catheterization report from [place] and still waiting for it to come. 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 You may get these medications from any pharmacy. amLODIPine 5 MG tablet pantoprazole 40 MG tablet Activity: activity as tolerated Diet: cardiac diet Wound Care: not applicable There are no Patient Instructions on file for this visit. Per Pt None Chaka Ortiz MD [address] [facility] [id number] In 1 week Ariel Pulido MD [address] [facility] [id number] In 1 week Daljit Singletary MD [address] [address] [facility] [address] In 1 week Signed: DEV MONTANO 02/28/2014 10:45 AM Addendum:ADDENDUM I just received a cardiac catheterization report from [facility], [place], which was done on December 25, 2013. [...] + + + +---------+ + + | Biloxi-3 Fatty | CAPS, one capsule by | [...] 02/28/141211 Date of Service: 02/28/141210 Status: Signed Core Inspector: Bijal Sosa RN (Registered Nurse) Discharge instructions [...] 02/28/1411 Date of Service: 02/28/1411 Status: Signed Core Inspector: Mary Wetzel RPH (Pharmacist) Clinical Pharmacy Note: [...] | 11/09/ | Office | Cardiology | Silvai | | | 2018 | Visit | | [address] | | | | | | [place], | | | | | | [place] [address] | | | | | | [phone] | | | | | | | | +--------+ + + + + | 11/20/ | Implant | Cardiology | Daljit Singletary, | Remote Device | | 2018 | Monitor | | MD [facility] [address] [place] [address] | Interrogation | | | | | [facility], | (Primary Dx); | | | | | [place] [address] | Presence of | | | | | [phone] | permanent cardiac | | | | [...] EXTERNAL | | | | performed at [facility];[address] | | LAB | | | | [address];[place], [place] | | | | | | [address] | | | | + + + [...] | | | | | | ACUTE HI Testing | | | | | | performed at [facility];[address] | | | | | | [facility];[place], [place] | | | | | | [address] | | | | + + + [...] | | | | | [place] [address] | | | | + + + + + + | RED CELL | 4.68Comment: Testing | 4.20 - 5.70 | EXTERNAL | | | COUNT | performed at [facility], [address] | M/uL | LAB | | | | [address], | | | | | | [place] [address] | | | | + + + + + + | Hgb | 15.3Comment: Testing | 13.2 - 17.0 | EXTERNAL | | | | performed at [facility], [address] | g/dL | LAB | | | | [address], | | | | | | [place] [address] | | | | + + + + + + | Hematocrit, | 44.2Comment: Testing | 39.0 - 50.0 % | EXTERNAL | | | POC | performed at [facility], [address] | | LAB | | | | [address], | | | | | | [place] [address] | | | | + + + + + + | MCV | 94.5Comment: Testing | 80.0 - 100.0 fl | EXTERNAL | | | | performed at [facility], [address] | | LAB | | | | [address], | | | | | | [place] [address] | | | | + + + + + + | MCH | 32.6Comment: Testing | 27.0 - 34.0 pg | EXTERNAL | | | | performed at [facility], [address] | | LAB | | | | [address], | | | | | | [place] [address] | | | | + + + + + + | MCHC | 34.5Comment: Testing | 32.0 - 35.5 | EXTERNAL | | | | performed at [facility], [address] | g/dL | LAB | | | | [address], | | | | | | [place] [address] | | | | + + + + + + | RDW-CV | 45.5Comment: Testing | 37 - 53 fl | EXTERNAL | | | | performed at [facility], [address] | | LAB | | | | [address], | | | | | | [place] [address] | | | | + + + + + + | Platelet | 156Comment: Testing | 150 - 400 K/uL | EXTERNAL | | | Count | performed at [facility], [address] | | LAB | | | Plasma | [address], | | | | | | [place] [address] | | | | + + + + + + | MPV | 8.8Comment: Testing | fl | EXTERNAL | | | | performed at [facility], [address] | | LAB | | | | [address], | | | | | | [place] [address] | | | | + + + + + + | Differentia | AUTOMATEDComment: | | EXTERNAL | | | l Type | Testing performed at | | LAB | | | | [facility], [address] | | | | | | [place] | | | | | | [address] | | | | + + + + + + | % Segmented | 57.7Comment: Testing | % | EXTERNAL | | | | performed at [facility], [address] | | LAB | | | Neutrophils | [address], | | | | | | [place] [address] | | | | + + + + + + | % | 31.8Comment: Testing | % | EXTERNAL | | | Lymphocytes | performed at [facility], [address] | | LAB | | | | [address], | | | | | | [place] [address] | | | | + + + + + + | % Monocytes | 9.2Comment: Testing | % | EXTERNAL | | | | performed at [facility], [address] | | LAB | | | | [address], | | | | | | [place] [address] | | | | + + + + + + | % | 0.9Comment: Testing | % | EXTERNAL | | | Eosinophils | performed at [facility], [address] | | LAB | | | | [address], | | | | | | [place] [address] | | | | + + + + + + | % Basophils | 0.4Comment: Testing | % | EXTERNAL | | | | performed at [facility], [address] | | LAB | | | | [address], | | | | | | [place] [address] | | | | + + + + + + | Absolute | 3.9Comment: Testing | 1.9 - 7.4 K/uL | EXTERNAL | | | Segmented | performed at [facility], [address] | | LAB | | | Neutrophils | [address], | | | | | | [place] [address] | | | | + + + + + + | Absolute | 2.1Comment: Testing | 1.0 - 3.9 K/uL | EXTERNAL | | | Lymphocytes | performed at [facility], [address] | | LAB | | | | [address], | | | | | | [place] [address] | | | | + + + + + + | Absolute | 0.6Comment: Testing | 0 - 0.8 K/uL | EXTERNAL | | | Monocytes | performed at [facility], [address] | | LAB | | | | [address], | | | | | | [place] [address] | | | | + + + + + + | Absolute | 0.1Comment: Testing | 0 - 0.5 K/uL | EXTERNAL | | | Eosinophils | performed at [facility], [address] | | LAB | | | | [address], | | | | | | [place] [address] | | | | + + + + + + | Absolute | 0.0Comment: Testing | 0 - 0.1 K/uL | EXTERNAL | | | Basophils | performed at [facility], [address] | | LAB | | | | [address], | | | | | | [place] [address] | | | | + + + [...] | | | | | [place] [address] | | | | + + + [...] EXTERNAL | | | | performed at [facility], [address] | | LAB | | | | [address], | | | | | | [place] [address] | | | | + + + [...] EXTERNAL | | | | performed at [facility];[address] | | LAB | | | | [address];[place] | | | | | | [address] | | | | + + + [...] | | | | | [place] [address] | | | | + + + + + + | Triglycerid | 37Comment: Testing | mg/dL | EXTERNAL | | | es | performed at [facility], [address] | | LAB | | | | [address], | | | | | | [place] [address] | | | | + + + + + + | HDL | 35 (L)Comment: Testing | mg/dL | EXTERNAL | | | | performed at [facility], [address] | | LAB | | | | [address], | | | | | | [place] [address] | | | | + + + + + + | LDL | 67Comment: Testing | mg/dL | EXTERNAL | | | Cholesterol | performed at [facility], [address] | | LAB | | | , | [email or web address], | | | | | Calculated, | [place] [address] | | | | | External | [...] | | | | | [place] [address] | | | | + + + + + + | K | 3.4 (L)Comment: Testing | 3.5 - 4.9 | EXTERNAL | | | | performed at [facility], [address] | mmol/L | LAB | | | | [address], | | | | | | [place] [address] | | | | + + + + + + | Cl | 108Comment: Testing | 99 - 109 mmol/L | EXTERNAL | | | | performed at [facility], [address] | | LAB | | | | [address], | | | | | | [place] [address] | | | | + + + + + + | CO2 | 21 (L)Comment: Testing | 23 - 32 mmol/L | EXTERNAL | | | | performed at [facility], [address] | | LAB | | | | [address], | | | | | | [place] [address] | | | | + + + + + + | Anion Gap | 12Comment: Testing | 5 - 20 mmol/L | EXTERNAL | | | | performed at [facility], [address] | | LAB | | | | [address], | | | | | | [place] [address] | | | | + + + + + + | Glucose, | 107 (H)Comment: Testing | 65 - 99 mg/dL | EXTERNAL | | | Fasting | performed at [facility], [address] | | LAB | | | | [address], | | | | | | [place] [address] | | | | + + + + + + | BUN | 15Comment: Testing | 8 - 25 mg/dL | EXTERNAL | | | | performed at [facility], [address] | | LAB | | | | [address], | | | | | | [place] [address] | | | | + + + + + + | Creatinine | 0.74Comment: Testing | 0.70 - 1.30 | EXTERNAL | | | | performed at [facility], [address] | mg/dL | LAB | | | | [address], | | | | | | [place] [address] | | | | + + + + + + | BUN/Creatin | 20Comment: Testing | | EXTERNAL | | | ine Ratio | performed at [facility], [address] | | LAB | | | | [address], | | | | | | [place] [address] | | | | + + + + + + | Calcium | 8.9Comment: Testing | 8.5 - 10.2 | EXTERNAL | | | | performed at [facility], [address] | mg/dL | LAB | | | | [address], | | | | | | [place] [address] | | | | + + + + + + | Protein, | 6.1 (L)Comment: Testing | 6.3 - 8.2 g/dL | EXTERNAL | | | Total | performed at [facility], [address] | | LAB | | | | [address], | | | | | | [place] [address] | | | | + + + + + + | Albumin | 4.0Comment: Testing | 3.6 - 5.0 g/dL | EXTERNAL | | | | performed at [facility], [address] | | LAB | | | [address], | | | | | | [place] [address] | | | | + + + + + + | Globulin | 2.1Comment: Testing | 1.3 - 4.9 g/dL | EXTERNAL | | | | performed at [facility], [address] | | LAB | | | | [address], | | | | | | [place] [address] | | | | + + + + + + | A/G Ratio | 1.9Comment: Testing | 1.0 - 2.4 | EXTERNAL | | | | performed at [facility], [address] | | LAB | | | | [address], | | | | | | [place] [address] | | | | + + + + + + | Bilirubin | 1.4Comment: Testing | 0.1 - 1.5 mg/dL | EXTERNAL | | | Total | performed at [facility], [address] | | LAB | | | | [address], | | | | | | [place] [address] | | | | + + + + + + | ALP, | 46Comment: Testing | 35 - 115 U/L | EXTERNAL | | | External | performed at [facility], [address] | | LAB | | | | [address], | | | | | | [place] [address] | | | | + + + + + + | AST | 31Comment: Testing | 10 - 45 U/L | EXTERNAL | | | | performed at [facility], [address] | | LAB | | | | [address], | | | | | | [place] [address] | | | | + + + + + + | ALT | 27Comment: Testing | 10 - 65 U/L | EXTERNAL | | | | performed at [facility], [address] | | LAB | | | | [address], | | | | | | [place] [address] | | | | + + + [...] | | | | | | at [facility], [address] | | | | | | [address], | | | | | | [place] [address] | | | | + + + [...] EXTERNAL | | | | performed at [facility];[address] | | LAB | | | | [address];[place], [place] | | | | | | [address] | | | | + + + [...] | | | | | | ACUTE HI Testing | | | | | | performed at [facility] | | | | | | [facility];[place], [place] | | | | | | [address] | | | | + + + [...] EXTERNAL | | | | performed at [facility];[address] | | LAB | | | | [facility], [place] | | | | | | [address] | | | | + + + [...] were | | | performed using the [employer] 3-D software and sent to PACS. Oral | | | Contrast: None IV contrast: 100 mL IsoVue 370 COMPARISON: None. 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 Oral Contrast: NoneIV contrast: 100 | | mL IsoVue 370 COMPARISON:None. FINDINGS: CHEST: The restaurant area director view shows a pacemaker via | | [...] EXTERNAL | | | | performed at [facility];[address] | | LAB | | | | [address];[place] | | | | | | [address] | | | | + + + + + -+ | RED CELL | 5.19Comment: Testing | 4.20 - 5.70 | EXTERNAL | | | COUNT | performed at [facility];[address] | M/uL | LAB | | | | [address];[place] | | | | | | [address] | | | | + + + + + -+ | Hgb | 16.8Comment: Testing | 13.2 - 17.0 | EXTERNAL | | | | performed at [facility];[address] | g/dL | LAB | | | | [address];[place] | | | | | | [address] | | | | + + + + + -+ | Hematocrit, | 49.5Comment: Testing | 39.0 - 50.0 % | EXTERNAL | | | POC | performed at [facility];[address] | | LAB | | | | [address];[place] | | | | | | [address] | | | | + + + + + -+ | MCV | 95.4Comment: Testing | 80.0 - 100.0 fl | EXTERNAL | | | | performed at [facility];[address] | | LAB | | | | [address];[place] | | | | | | [address] | | | | + + + + + -+ | MCH | 32.4Comment: Testing | 27.0 - 34.0 pg | EXTERNAL | | | | performed at [facility];[address] | | LAB | | | | [address];[place] | | | | | | [address] | | | | + + + + + -+ | MCHC | 34.0Comment: Testing | 32.0 - 35.5 | EXTERNAL | | | | performed at [facility];[address] | g/dL | LAB | | | | [address];[place] | | | | | | [address] | | | | + + + + + -+ | RDW-CV | 46.8Comment: Testing | 37 - 53 fl | EXTERNAL | | | | performed at [facility];[address] | | LAB | | | | [address];[place] | | | | | | [address] | | | | + + + + + -+ | Platelet | 179Comment: Testing | 150 - 400 K/uL | EXTERNAL | | | Count | performed at [facility];[address] | | LAB | | | Plasma | [address];[place] | | | | | | [address] | | | | + + + + + -+ | MPV | 8.6Comment: Testing | fl | EXTERNAL | | | | performed at [facility];[address] | | LAB | | | | [address];[place] | | | | | | [address] | | | | + + + + + -+ | Differentia | AUTOMATEDComment: | | EXTERNAL | | | l Type | Testing performed at | | LAB | | | | [facility];[address];[place] [address] | | | | + + + + + -+ | % Segmented | 62.4Comment: Testing | % | EXTERNAL | | | | performed at [facility];[address] | | LAB | | | Neutrophils | [address];[place] | | | | | | [address] | | | | + + + + + -+ | % | 26.3Comment: Testing | % | EXTERNAL | | | Lymphocytes | performed at [facility];[address] | | LAB | | | | [address];[place] | | | | | | [address] | | | | + + + + + -+ | % Monocytes | 10.3Comment: Testing | % | EXTERNAL | | | | performed at [facility];[address] | | LAB | | | | [address];[place] | | | | | | [address] | | | | + + + + + -+ | % | 0.5Comment: Testing | % | EXTERNAL | | | Eosinophils | performed at [facility];[address] | | LAB | | | | [address];[place] | | | | | | [address] | | | | + + + + + -+ | % Basophils | 0.5Comment: Testing | % | EXTERNAL | | | | performed at [facility];[address] | | LAB | | | | [address];[place] | | | | | | [address] | | | | + + + + + -+ | Absolute | 6.3Comment: Testing | 1.9 - 7.4 K/uL | EXTERNAL | | | Segmented | performed at [facility];[address] | | LAB | | | Neutrophils | [address];[place] | | | | | | [address] | | | | + + + + + -+ | Absolute | 2.7Comment: Testing | 1.0 - 3.9 K/uL | EXTERNAL | | | Lymphocytes | performed at [facility];[address] | | LAB | | | | [address];[place] | | | | | | [address] | | | | + + + + + -+ | Absolute | 1.0 (H)Comment: Testing | 0 - 0.8 K/uL | EXTERNAL | | | Monocytes | performed at [facility];[address] | | LAB | | | | [address];[place] | | | | | | [address] | | | | + + + + + -+ | Absolute | 0.0Comment: Testing | 0 - 0.5 K/uL | EXTERNAL | | | Eosinophils | performed at [facility];[address] | | LAB | | | | [address];[place] | | | | | | [address] | | | | + + + + + -+ | Absolute | 0.1Comment: Testing | 0 - 0.1 K/uL | EXTERNAL | | | Basophils | performed at [facility];[address] | | LAB | | | | [address];[place] | | | | | | [address] | | | | + + + + + -+ | Na | 139Comment: Testing | 135 - 143 | EXTERNAL | | | | performed at [facility];[address] | mmol/L | LAB | | | | [address];[place] | | | | | | [address] | | | | + + + + + -+ | K | 3.4 (L)Comment: Testing | 3.5 - 4.9 | EXTERNAL | | | | performed at [facility];[address] | mmol/L | LAB | | | | [address];[place] | | | | | | [address] | | | | + + + + + -+ | Cl | 108Comment: Testing | 99 - 109 mmol/L | EXTERNAL | | | | performed at [facility];[address] | | LAB | | | | [address];[place] | | | | | | [address] | | | | + + + + + -+ | CO2 | 21 (L)Comment: Testing | 23 - 32 mmol/L | EXTERNAL | | | | performed at [facility];[address] | | LAB | | | | [address];[place] | | | | | | [address] | | | | + + + + + -+ | Anion Gap | 14Comment: Testing | 5 - 20 mmol/L | EXTERNAL | | | | performed at [facility];[address] | | LAB | | | | [address];[place] | | | | | | [address] | | | | + + + + + -+ | Glucose, | 124 (H)Comment: Testing | 65 - 99 mg/dL | EXTERNAL | | | Fasting | performed at [facility];[address] | | LAB | | | | [address];[place] | | | | | | [address] | | | | + + + + + -+ | BUN | 20Comment: Testing | 8 - 25 mg/dL | EXTERNAL | | | | performed at [facility];[address] | | LAB | | | | [address];[place] | | | | | | [address] | | | | + + + + + -+ | Creatinine | 0.97Comment: Testing | 0.70 - 1.30 | EXTERNAL | | | | performed at [facility];[address] | mg/dL | LAB | | | | [address];[place] | | | | | | [address] | | | | + + + + + -+ | BUN/Creatin | 21Comment: Testing | | EXTERNAL | | | ine Ratio | performed at [facility];[address] | | LAB | | | | [address];[place] | | | | | | [address] | | | | + + + + + -+ | Calcium | 8.7Comment: Testing | 8.5 - 10.2 | EXTERNAL | | | | performed at [facility];[address] | mg/dL | LAB | | | | [address];[place] | | | | | | [address] | | | | + + + + + -+ | Protein, | 7.6Comment: Testing | 6.3 - 8.2 g/dL | EXTERNAL | | | Total | performed at [facility];[address] | | LAB | | | | [address];[place] | | | | | | [address] | | | | + + + + + -+ | Albumin | 4.2Comment: Testing | 3.6 - 5.0 g/dL | EXTERNAL | | | | performed at [facility];[address] | | LAB | | | | [address];[place] | | | | | | [address] | | | | + + + + + -+ | Globulin | 3.4Comment: Testing | 1.3 - 4.9 g/dL | EXTERNAL | | | | performed at [facility];[address] | | LAB | | | | [address];[place] | | | | | | [address] | | | | + + + + + -+ | A/G Ratio | 1.2Comment: Testing | 1.0 - 2.4 | EXTERNAL | | | | performed at [facility];[address] | | LAB | | | | [address];[place] | | | | | | [address] | | | | + + + + + -+ | Bilirubin | 1.1Comment: Testing | 0.1 - 1.5 mg/dL | EXTERNAL | | | Total | performed at [facility];[address] | | LAB | | | | [address];[place] | | | | | | [address] | | | | + + + + + -+ | ALP, | 77Comment: Testing | 35 - 115 U/L | EXTERNAL | | | External | performed at [facility];[address] | | LAB | | | | [address];[place] | | | | | | [address] | | | | + + + + + -+ | AST | 35Comment: Testing | 10 - 45 U/L | EXTERNAL | | | | performed at [facility];[address] | | LAB | | | | [address];[place] | | | | | | [address] | | | | + + + + + -+ | ALT | 43Comment: Testing | 10 - 65 U/L | EXTERNAL | | | | performed at [facility];[address] | | LAB | | | | [address];[place] | | | | | | [address] | | | | + + + [...] | | | | | | at [facility];[address] | | | | | | [address];[place] [address] | | | | + + + + + -+ | CK, Total | 510 (H)Comment: Testing | 55 - 400 U/L | EXTERNAL | | | | performed at [facility];[address] | | LAB | | | | [address];[place] | | | | | | [address] | | | | + + + [...] | | | | | performed at [facility];[address] | | | | | | [address];[place] | | | | | | [address] | | | | + + + + + -+ | aPTT, | 24Comment: Testing | 23 - 32 seconds | EXTERNAL | | | Patient | performed at [facility];[address] | | LAB | | | | [address];[place] | | | | | | [address] | | | | + + + + + -+ | CK-MB | 9.3 (H)Comment: Testing | 0.5 - 3.6 ng/mL | EXTERNAL | | | | performed at [facility];[address] | | LAB | | | | [facility];[place], [place] | | | | | | [address] | | | | + + + [...] EXTERNAL | | | | performed at [facility];888 | uIU/mL | LAB | | | | [address];[place] | | | | | | [address] | | | | + + + [...] EXTERNAL | | | | performed at [facility];[address] | | LAB | | | | [address];[place], [place] | | | | | | [address] | | | | + + + [...]
--- OUTSIDE RECORDS SUMMARY | ~2019-11-01 | XMS | Encounter Summary ---
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, | (Primary Dx); | | | | | [place] [address] | Presence of | | | | | [phone] | permanent cardiac | | | | [...]
--- OUTSIDE RECORDS SUMMARY | ~2019-11-01 | XMS | Encounter Summary ---
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 3. Return in 3 months, or sooner [...] he did not followup with electrophysiology in [place], so he has remained on diltiaze m [...] by mouth Ken y. 30 tablet 6 [place]-3 Fatty Acids (SALMON OIL-1000 PO) Active CAPS, [...] Sanchez Date: September 05, 2013 : 1960 Spindle Maker: PARISA Velazquez Device Plasma Cutting Machine Operator: Breakout Commerce Sense (mV) Impedance (?) Capture (V) Capture (ms) A Lead 4-5.6 417 1.5 0.12 RV Lead >31.36 533 2.0 0.09 LV Lead Battery Impedance (?): 452 Battery Voltage (V): 2.79 OK Interval (ms): 162 AR Interval (ms): 245 VA Conduction: Mode Switch Events: 1 % of time: <0.1 -MOLDER WAX BALL: <0.1% AP-MOLDER WAX BALL: 0.1% -VS: 22.7% AP-VS: 77.1% MOLDER WAX BALL: Magnetic Rate: 85 LINDA: 65 LEAH: Current [...] to go back in 3 days to [place] for an attempt of ablation under general [...] He is upgraded to class I of [place] 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 There are no [...] he would like to see electrophysiology in [place] rather than [place] as he paulino s family there, if [...] made to ensure accuracy; however, inadvertent computerized prosthetic makeup designer errors may be pre sent. Electronically signed [...] | | | | | | [place] [address] | | | | | | [phone] | | | | | | | [...] Presence of | | | | | [phone] | permanent cardiac | | | | [...]
--- OUTSIDE RECORDS SUMMARY | ~2019-11-01 | XMS | Encounter Summary ---
Demographics + + + | Address | [address] [place] [address] | | | [place] [address] | + + + | Home Phone [...] [place] | | | | | [address] | | + + + + + Care Team Providers + +------+ + | Care Coin Purse Framer Name | Role | Phone | [...] | | ILA Casper Rosa Maria | [facility] [place] | ED) | | | | Mailcode: Center | [address] | | | | | for Health and | [phone] | | | | | [facility] | | | | | | [place], [place] | | | | | | [address] | | | | | | [phone] | | | +--------+ + + + [...]
--- OUTSIDE RECORDS SUMMARY | ~2019-11-01 | XMS | Encounter Summary ---
Demographics + + + | Address | [address] | | | [place] [address] | + + + | Home Phone [...] Providers + +------+ + | Care Garment Manufacturer Name | Role | Phone | + [...] + | 09/01/ | Telephone | [facility] | Silvia, | Appointment | | 2016 | | CARDIOLOGY [address] | PARISA Vernon [address] | (Reschedule) | | | | [place], | [place], | | | | | [place] [address] | [place] [address] | | | | | [phone] | [phone] | | | | | | | [...] | | | | | [place], | | | | | | [place] [address] | | | | | | [phone] | | | | | | | | +--------+ + + + + | 11/20/ | Implant | Cardiology | Daljit Singletary, | Remote Device | | 2018 | Monitor | | [address] [place] | Interrogation | | | | | [place], | (Primary Dx); | | | | | [place] [address] | Presence of | | | | | [phone] | permanent cardiac | | | | [...]
--- OUTSIDE RECORDS SUMMARY | ~2019-11-01 | XMS | Encounter Summary ---
Demographics + + + | Address | [address] | | | [place] [address] | + + + | Home Phone [...] Team Providers + +------+ + | Care Manpower Development Specialist Name | Role | Phone [...] [address] | | | | | | [place], [place] | (Fax) | | | | | [address] | | | | | | [phone] | | | +--------+ + + + [...] | | | | | | [place] [address] | | | | | | [phone] | | | | | | | | +--------+ + + + + | 11/20/ | Implant | Cardiology | Daljit Singletary, | Remote Device | | 2018 | Monitor | | [address] [facility] | Interrogation | | | | | [place], | (Primary Dx); | | | | | [place] [address] | Presence of | | | | | [phone] | permanent cardiac | | | | [...]
--- OUTSIDE RECORDS SUMMARY | ~2019-11-01 | XMS | Encounter Summary ---
Demographics + + + | Address | [address] | | | [place] [address] | + + + | Home Phone [...] Providers + +------+ + | Care Formula Clerk Name | Role | Phone | [...] [address] | | | | | [place], | [place], | | | | | [place] [address] | [place] [address] | | | | | [phone] | [phone] | | | | | | | [...] W | | | | | | [place], | | | | | | [place] [address] | | | | | | [phone] | | | | | | | | +--------+ + + + + | 11/20/ | Implant | Cardiology | Daljit Singletary, | Remote Device | | 2018 | Monitor | | [address] [facility] | Interrogation | | | | | [place], | (Primary Dx); | | | | | [place] [address] | Presence of | | | | | [phone] | permanent cardiac | | | | [...]
--- OUTSIDE RECORDS SUMMARY | ~2019-11-01 | XMS | Encounter Summary ---
Demographics + + + | Address | [address] | | | [place] [address] | + + + | Home Phone [...] Providers + +------+ + | Care Associate Trainer Name | Role | Phone | [...] + | 01/25/ | Office | [facility] | Daljit Singletary, | Other chest pain | | 2012 | Visit | CARDIOLOGY [address] | [address] | (Primary Dx); PVC's | | | | [place], | [place], | (premature | | | | [place] [address] | [place] [address] | ventricular | | | | [phone] | [phone] | contractions) | | | | | [...] note, lorraine painting has appointment to see supervisory training specialist for PVCs ablations consultation on January [...] tablet Take 1,000 mg by mouth Daily. [place]-3 Fatty Acids (SALMON OIL-1000 PO) CAPS, one [...] tablet Take 1,000 mg by mouth Daily. [place]-3 Fatty Acids (SALMON OIL-1000 PO) CAPS, one [...] | | | | | | [place] [address] | | | | | | [phone] | | | | | | | | +--------+ + + + + | 11/20/ | Implant | Cardiology | Daljit Singletary, | Remote Device | | 2018 | Monitor | | [facility] | Interrogation | | | | | [place], | (Primary Dx); | | | | | [place] [address] | Presence of | | | | | [phone] | permanent cardiac | | | | [...]
--- OUTSIDE RECORDS SUMMARY | ~2019-11-01 | XMS | Encounter Summary ---
Demographics + + + | Address | [address] | | | [place] [address] | + + + | Home Phone [...] Providers + +------+ + | Care Credit Collections Specialist Name | Role | Phone [...] [address] | | | | | | [place], [place] | (Fax) | | | | | [address] | | | | | | [phone] | | | +--------+ + + + [...] | | | | | | [place] [address] | | | | | | [phone] | | | | | | | | +--------+ + + + + | 11/20/ | Implant | Cardiology | Daljit Singletary, | Remote Device | | 2018 | Monitor | | [facility] | Interrogation | | | | | [place], | (Primary Dx); | | | | | [place] [address] | Presence of | | | | | [phone] | permanent cardiac | | | | [...]
--- OUTSIDE RECORDS SUMMARY | ~2019-11-01 | XMS | Encounter Summary ---
Demographics + + + | Address | [address] | | | [place] [address] | + + + | Home Phone [...] Providers + +------+ + | Care Financial Systems Analyst Name | Role | Phone [...] | | CARDIOLOGY [address] | Janeen CARROT BUNCHER [address] | | | | | [place], | [place], | | | | | [place] [address] | [place] [address] | | | | | [phone] | [phone] | | | | | | | [...] | | | | | | [place], | | | | | | [place] [address] | | | | | | [phone] | | | | | | | | +--------+ + + + + | 11/20/ | Implant | Cardiology | Daljit Singletary, | Remote Device | | 2018 | Monitor | | MD [address] | Interrogation | | | | | [place], | (Primary Dx); | | | | | [place] [address] | Presence of | | | | | [phone] | permanent cardiac | | | | [...]
--- OUTSIDE RECORDS SUMMARY | ~2019-11-01 | XMS | Encounter Summary ---
Demographics + + + | Address | [address] | | | [place] [address] | + + + | Home Phone [...] Team Providers + +------+ + | Care Casing Material Weigher Name | Role | Phone | + +------+ + | Michael Amanda DO | PCP | | + +------+ + Encounter Details +--------+ + + + + | Date | Type | Department | Care Team | Description | +--------+ + + + + | 09/22/ | Hospital | [facility] | Bahman Gant MD | | | 2012 | Encounter | MED CTR XRAY [address] | [address] [place] | | | | | [place] | [address] [place], | | | | | [place] [address] | [place] [address] | | | | | [phone] | [phone] | | | | | | | [...] + + +---------+ + + | [place]-3 Fatty | CAPS, one capsule by | [...] | | | | | | [place] [address] | | | | | | [phone] | | | | | | | | +--------+ + + + + | 11/20/ | Implant | Cardiology | Daljit Singletary, | Remote Device | | 2019 | Monitor | | MD [address] | Interrogation | | | | | [place], | (Primary Dx); | | | | | [place] [address] | Presence of | | | | | [phone] | permanent cardiac | | | | [...]
--- OUTSIDE RECORDS SUMMARY | ~2019-11-01 | XMS | Encounter Summary ---
Demographics + + + | Address | [address] | | | [place] [address] | + + + | Home Phone [...] Providers + +------+ + | Care Well Cleaner Name | Role | Phone | [...] | RN | | | | | [place], | | | | | | [place] [address] | | | | | | [phone] | | | +--------+ + + + [...] | | | | | | [place] [address] | | | | | | [phone] | | | | | | | | +--------+ + + + + | 11/20/ | Implant | Cardiology | Daljit Singletary, | Remote Device | | 2019 | Monitor | | [address] | Interrogation | | | | | [place], | (Primary Dx); | | | | | [place] [address] | Presence of | | | | | [phone] | permanent cardiac | | | | [...]
--- OUTSIDE RECORDS SUMMARY | ~2019-11-01 | XMS | Encounter Summary ---
Demographics + + + | Address | [address] | | | [place] [address] | + + + | Home Phone [...] Providers + +------+ + | Care Customer Project Manager Name | Role | Phone [...] abdominal | [address] | [address], | | | | | pain | [address] | [address] | | | | | Chronic pain | [address] | [place], | | | | | syndrome | [place], [place] | [place] [address] | | | | | Procedures | [address] | Phone: | | | | | Office Visit | Phone: | [phone] | | | | | | [phone] | Fax: | | | | | | Fax: | [phone] | | | | | | [phone] | | +--------+--------+ + + + + Encounter Details +--------+---------+ + + + | Date | Type | Department | Care Team | Description | +--------+---------+ + + + | 12/02/ | Office | [facility] [place] | Emmanuel Daniel MD | Diarrhea, | | 2018 | Visit | GASTROENTEROLOGY | [address], [place] | unspecified type | | | | [address] | [address] [place], [place] | (Primary Dx); Weight | | | | [address] [place], [place] | [address] | loss, | | | | [address] | | unintentional; | | | | [phone] | | Generalized | | | | [...] | | | | | | [place] [address] | | | | | | [phone] | | | | | | | | +--------+ + + + + | 11/20/ | Implant | Cardiology | Daljit Singletary, | Remote Device | | 2018 | Monitor | | MD [address] | Interrogation | | | | | [place], | (Primary Dx); | | | | | [place] [address] | Presence of | | | | | [phone] | permanent cardiac | | | | [...]
--- OUTSIDE RECORDS SUMMARY | ~2019-11-01 | XMS | Encounter Summary ---
Demographics + + + | Address | [address] | | | [place] [address] | + + + | Home Phone [...] + +------+ + | Care Material Control Associate Name | Role | Phone | [...] | 07/30/ | Telephone | [facility] | Michael Amanda, | Results | | 2013 | | MEDICINE [place] | DO [address] | | | | | [address] | [place] | | | | | [place] | [address] | | | | | [address] | | | | | | [phone] | | | +--------+ + + + [...] | | | | | | [place] [address] | | | | | | [phone] | | | | | | | | +--------+ + + + + | 11/20/ | Implant | Cardiology | Daljit Singletary, | Remote Device | | 2018 | Monitor | | MD [address] | Interrogation | | | | | [place], | (Primary Dx); | | | | | [place] [address] | Presence of | | | | | [phone] | permanent cardiac | | | | [...]
--- OUTSIDE RECORDS SUMMARY | ~2019-11-01 | XMS | Encounter Summary ---
Demographics + + + | Address | [address] | | | [place] [address] | + + + | Home Phone [...] + + | 06/26/ | Hospital | [facility] | Michael Amanda, | Diplopia | | 2012 | Encounter | MED CTR LABORATORY | DO [address] | | | | | [address] [place] | [place], [place] | | | | | [place], [place] | [address] | | | | | [address] | | | | | | [phone] | | | +--------+ + + + [...] + + + +---------+ + + | [place]-3 Fatty | CAPS, one capsule by [...] W | | | | | | [address], | | | | | | [place] [address] | | | | | | [phone] | | | | | | | | +--------+ + + + + | 11/20/ | Implant | Cardiology | Daljit Singletary, | Remote Device | | 2018 | Monitor | | [facility] | Interrogation | | | | | [place], | (Primary Dx); | | | | | [place] [address] | Presence of | | | | | [phone] | permanent cardiac | | | | [...] + | [facility] | [address] | [place], [place] | [phone] | | [facility] | | [address] | | | - LABORATORY | | | | + + + + + | [facility] | [address] | [place], [place] | | | [facility] | | [address] | | | - LABORATORY | | [...] performed on the Javid | uIU/mL | [facility] | | | | [facility] [...] [address] | [place] | [phone] | | [facility] | | [address] | | | - LABORATORY | | | | + + + + + | [facility] | [address] | [place] | | | [facility] | | [address] | | | - LABORATORY | | [...] + | [facility] | [address] | [place] | [phone] | | [facility] | | [address] | | | - LABORATORY | | | | + + + + + | [facility] | [address] | [place], [place] | | | [facility] | | [address] | | | - LABORATORY | | [...] + | [facility] | [address] | [place] | [phone] | | [facility] | | [address] | | | - LABORATORY | | | | + + + + + | [facility] | [address] | [place], [place] | | | [facility] | | [address] | | | [...] + | [facility] | [address] | [place] | [phone] | | [facility] | | [address] | | | - LABORATORY | | | | + + + + + | [facility] | [address] | [place] | | | [facility] | | [address] | | | - LABORATORY | | [...] performed on the Javid | uIU/mL | [facility] | | | | [place] [facility] | | MEDICAL | | | [...] + | [facility] | [address] | [place] | [phone] | | [facility] | | [address] | | | - LABORATORY | | | | + + + + + | [facility] | [address] | [place] | | | [facility] | | [address] | | | - LABORATORY | | | | + + + + + documented in this encounter Visit Diagnoses + + | Diagnosis | + + | Diplopia | + + documented in this encounter"
--- OUTSIDE RECORDS SUMMARY | ~2019-11-01 | XMS | Encounter Summary ---
Demographics + + + | Address | [address] | | | [place] [address] | + + + | Home Phone [...] Providers + +------+ + | Care Panel Fitter Name | Role | Phone | [...] [place] | | | | | [address] [place], [place] | [address] | | | | | [address] | | | | | | [phone] | | | +--------+ + + + [...] | | | | | | [place], | | | | | | [place] [address] | | | | | | [phone] | | | | | | | | +--------+ + + + + | 11/20/ | Implant | Cardiology | Daljit Singletary, | Remote Device | | 2018 | Monitor | | [facility] | Interrogation | | | | | [place], | (Primary Dx); | | | | | [place] [address] | Presence of | | | | | [phone] | permanent cardiac | | | | [...]
--- OUTSIDE RECORDS SUMMARY | ~2019-11-01 | XMS | Encounter Summary ---
Demographics + + + | Address | [address] | | | [place] [address] | + + + | Home Phone [...] Providers + +------+ + | Care Improvement Coordinator Name | Role | Phone | [...] + + | 06/26/ | Office | [facility] | AudubonJacek, | Diplopia (Primary | | 2012 | Visit | [facility] | [address] | Dx); Symptomatic | | | | [address] | [place], [place] | PVCs; Hypertension | | | | [place], [place] | [address] | | | | | [address] | | | | | | [phone] | | | +--------+---------+ + + + [...] Double vision will affect your ability to junior automation engineer distance. This means it will be [...] or, difficulty with vision, speech or walking [address] [place] [address]. All rights reserve d. This information is [...] from his pain clinic visit in the [facility] on Wednesday or he developed double [...] double vision. He was evaluated by Dr Queen Anne'S and had a normal eye exam, nor [...] tablet by mouth Daily. 30 tablet 6 [place]-3 Fatty Acids (SALMON OIL-1000 PO) CAPS, one [...] | | | | | | [place] [address] | | | | | | [phone] | | | | | | | | +--------+ + + + + | 11/20/ | Implant | Cardiology | Daljit Singletary, | Remote Device | | 2018 | Monitor | | MD [address] | Interrogation | | | | | [place], | (Primary Dx); | | | | | [place] [address] | Presence of | | | | | [phone] | permanent cardiac | | | | [...] + | [facility] | [address] | [place] | [phone] | | [facility] | | [address] | | | - LABORATORY | | | | + + + + + | [facility] | [address] | [place] | | | [facility] | | [address] | | | - LABORATORY | | [...] + | [facility] | [address] | [place] | [phone] | | [facility] | | [address] | | | - LABORATORY | | | | + + + + + | [facility] | [address] | [place] | | | [facility] | | [address] | | | - LABORATORY | | [...] | [facility] | | | | [place] [facility] | | MEDICAL | | | [...] [address] | [place] | [phone] | | [facility] | | [address] | | | - LABORATORY | | | | + + + + + | [facility] | [address] | [place], [place] | | | [facility] | | [address] | | | - LABORATORY | | | | + + + + + documented in this encounter Visit Diagnoses + + | Diagnosis | + + | Diplopia - Primary | + + | Symptomatic PVCs Other premature beats | + + | Hypertension Unspecified essential hypertension | + + documented in this encounter
--- OUTSIDE RECORDS SUMMARY | ~2019-11-01 | XMS | Encounter Summary ---
Demographics + + + | Address | [address] | | | [place] [address] | + + + | Home Phone [...] Team Providers + +------+ + | Care Wares Sorter Name | Role | Phone | + +------+ + PCP | Unavailable | + +------+ + Encounter Details +--------+ + + + + | Date | Type | Department | Care Team | Description | +--------+ + + + + | 07/20/ | [facility] | [facility] | Hunter Antunez, | | | 2009 - | Encounter | MED CTR MED ONC | [address] | | | | | [address] [place] | [place] | | | 07/24/ | | [place] [address] | [address] | | | 2009 | | [phone] | | | +--------+ + + + [...] [place] | | | | | | [place] [address] | | | | | | [phone] | | | | | | | | +--------+ + + + + | 11/20/ | Implant | Cardiology | Daljit Singletary, | Remote Device | | 2019 | Monitor | | MD [address] | Interrogation | | | | | [address] [place], | (Primary Dx); | | | | | [place] [address] | Presence of | | | | | [phone] | permanent cardiac | | | | [...]
--- OUTSIDE RECORDS SUMMARY | ~2019-11-01 | XMS | Encounter Summary ---
Demographics + + + | Address | [address] | | | [place] [address] | + + + | Home Phone [...] Providers + +------+ + | Care Bottle House Pumper Name | Role | Phone | [...] 2015 | | CARDIOLOGY [address] | MACHINE PACK ASSEMBLER [address] | reprogramming/check | | | | [place], | [place], [place] | DO NOT DELETE | | | | [place] [address] | [address] | (Primary Dx); | | | | [phone] | | Pacemaker - | | | [...] | | | | | | [place], | | | | | | [place] [address] | | | | | | [phone] | | | | | | | | +--------+ + + + + | 11/20/ | Implant | Cardiology | Daljit Singletary, | Remote Device | | 2018 | Monitor | | [address] | Interrogation | | | | | [place], | (Primary Dx); | | | | | [place] [address] | Presence of | | | | | [phone] | permanent cardiac | | | | [...] | | 2. 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
--- OUTSIDE RECORDS SUMMARY | ~2019-11-01 | XMS | Encounter Summary ---
Demographics + + + | Address | [address] | | | [place] [address] | + + + | Home Phone [...] Team Providers + +------+ + | Care Echocardiography Tech Name | Role | Phone | [...] | SLEEP DISORDER [address] | [address] | Dx) | | | | [address] [place] | [place] | | | | | [place] [address] | [address] | | | | | [phone] | | | +--------+---------+ + + + [...] obtained from: [facility] [place] pressure is: 13 cm CPAP download [...] go to [facility] in [place] to have them download his memory card. I will readjust his pressure, if necessary. I will call him with the results. He is to work toward wearing his CPAP 100% of the time he is asleep. I will follow up again in 1 month, sooner prn. Fifteen minutes were spent [id number], wi th the majority of time spent [...] W | | | | | | [place], | | | | | | [place] [address] | | | | | | [phone] | | | | | | | | +--------+ + + + + | 11/20/ | Implant | Cardiology | Daljit Singletary, | Remote Device | | 2018 | Monitor | | [facility] | Interrogation | | | | | [place], | (Primary Dx); | | | | | [place] [address] | Presence of | | | | | [phone] | permanent cardiac | | | | [...]
--- OUTSIDE RECORDS SUMMARY | ~2019-11-01 | XMS | Encounter Summary ---
Demographics + + + | Address | [address] | | | [place] [address] | + + + | Home Phone [...] Team Providers + +------+ + | Care Confectionery Maker Name | Role | Phone | [...] + | 01/24/ | Telephone | [facility] | Daljit Singletary, | Other | | 2019 | | CARDIOLOGY [address] | MD [address] | | | | | [place], | [place], | | | | | [place] [address] | [place] [address] | | | | | [phone] | [phone] | | | | | | | [...] | | | | | | [place] [address] | | | | | | [phone] | | | | | | | | +--------+ + + + + | 11/20/ | Implant | Cardiology | Daljit Singletary, | Remote Device | | 2018 | Monitor | | MD [address] | Interrogation | | | | | [address] [place], | (Primary Dx); | | | | | [place] [address] | Presence of | | | | | [phone] | permanent cardiac | | | | [...]
--- OUTSIDE RECORDS SUMMARY | ~2019-11-01 | XMS | Encounter Summary ---
Demographics + + + | Address | [id number] [place] [address] | | | [place] [address] | + + + | Home Phone [...] [place] | | | | | [address] | | + + + + + Care Team Providers + +------+ + | Care Telesales Consultant Name | Role | Phone | [...] | | Center at [facility] [address] | [address] | | | | | [address] | [place], [place] | | | | | Mailcode: [place] | [address] | | | | | [facility] and | [phone] | | | | | [place] [address] | | | | | | [place], [place] | | | | | | [address] | | | | | | [phone] | | | +--------+ + + + [...]
--- OUTSIDE RECORDS SUMMARY | ~2019-11-01 | XMS | Encounter Summary ---
Demographics + + + | Address | [address] | | | [place] [address] | + + + | Home Phone [...] + + +---------+ + | Maria Isabelchelo Sanhcez | ECON | Unknown | | + + +---------+ + Care Team Providers + +------+ + | Care Emergency Medical Technician Name | Role | Phone | [...] + + | 01/05/ | Office | [facility] | Silvia, | Pacemaker - | | 2018 | Visit | CARDIOLOGY [address] | [address] | [employer] - [id number] | | | | [place], | [place], | [place] - Implanted | | | | [place] [address] | [place] [address] | 06/14/2009 (Primary | | | | [phone] | [phone] | Dx); Chest pain, | | | [...] involving | | | | | | shawnee coronary | | | | | | artery of shawnee | | | | | | heart [...] of non-critical coronary artery d isease involving shawnee coronary artery of shawnee heart without angina pectoris, essential h ypertension, [...] pain. He went to the ER in [place] because th e NTG didn't relieved the pain. He was diagnosed with bronchitis. Otherwise he has had no ot her symptoms. He has had a good energy level. He tries to stay active. He has joined a [employer] gym and trying to exercise more often. [...] Preventative health care Coronary artery disease involving shawnee coronary artery of shawnee heart without angina pectoris Cannabis abuse, daily [...] 3RD DOSE, CALL 911 100 tablet 3 [place]-3 Fatty Acids (SALMON OIL-1000 PO) CAPS, one [...] overload. 2. Non-critical Coronary artery disease involving shawnee coronary a rtery of shawnee heart without angina pectoris: A. Normal exercise [...] arrhythmia performed by Dr. Gambino at [facility] on 01/30/2013. Patient had spontaneous [...] to go back in 3 days to [place] for an attempt of ablation under general [...] a normal stable device function. Estimated remaining [facility] longevity is 3.5 years.. 5. [...] this chart may have been created with Jings[employer] Wan[employer] voice recognition software. Occasi onal wrong-word or [...] | | | | | | [place] [address] | | | | | | [phone] | | | | | | | | +--------+ + + + + | 11/20/ | Implant | Cardiology | Sydni Singletary, | Remote Device | | 2019 | Monitor | | MD [address] [facility] | Interrogation | | | | | [place], | (Primary Dx); | | | | | [place] [address] | Presence of | | | | | [phone] | permanent cardiac | | | | [...] involving | | | | | | shawnee coronary | | | | | | artery of shawnee | | | | | | heart [...] SYDNI | | | | | | ([id number]) on 01/06/2018 | | | | | [...] + + | Coronary artery disease involving shawnee coronary artery of shawnee heart without | | angina pectoris | + + | Hyperlipidemia, mixed Mixed hyperlipidemia | + + | Hypertension, unspecified type | + + | Syncope, unspecified syncope type | + + | Ascending thoracic aortic aneurysm (HCC) Thoracic aneurysm without mention of rupture | + + documented in this encounter
--- OUTSIDE RECORDS SUMMARY | ~2019-11-01 | XMS | Encounter Summary ---
Demographics + + + | Address | [address] | | | [place] [address] | + + + | Home Phone [...] Providers + +------+ + | Care Aerodynamics Teacher Name | Role | Phone | [...] | Palpitations | [address] | | | | | Procedures | [address] | [address] [place] | | | | | ECHO | [place], | [place], [place] | | | | | Complete | [place] [address] | [address] | | | | | | Phone: | Phone: | | | | | | [phone] | [phone] | | | | | | Fax: | Fax: | | | | | | [phone] | [phone] | +--------+--------+ + + + + Reason [...] + | 12/21/ | Office | [facility] | Daljit Singletary, | Palpitations | | 2012 | Visit | CARDIOLOGY [address] | (Primary Dx); PVC | | | | [place], | [place], | (premature | | | | [place] [address] | [place] [address] | ventricular | | | | [phone] | [phone] | contraction) | | | | | [...] emergency department at [facility] in [place], [place]. Today, patient is apprehensive of the [...] tablet Take 1,000 mg by mouth Daily. [place]-3 Fatty Acids (SALMON OIL-1000 PO) CAPS, one [...] tablet Take 1,000 mg by mouth Daily. [place]-3 Fatty Acids (SALMON OIL-1000 PO) CAPS, one [...] Gay Date: December 21, 2012 : 1960 Safety Equipment Tester: PARISA Velazquez Device Road Contractor: Volextronic Sense (mV) Impedance (?) Capture (V) Capture (ms) A Lead 4-5.6 423 1.5 0.09 RV Lead >31.36 539 2.0 0.09 LV Lead Battery Impedance (?): 301 Battery Voltage (V): 2.8 SD Interval (ms): 140 AR Interval (ms): 210 [place] Conduction: Mode Switch Events: N/A % of time: -ENRICHMENT SPECIALIST: 0.6 AP-ENRICHMENT SPECIALIST: 1.3 -VS: 23.9 AP-VS: 74.2 ENRICHMENT SPECIALIST: Magnetic Rate: 85 LINDA: 65 LEAH: [...] ncy department at [facility] in [place], [place]. EKG showed normal sinus rhythm with [...] I will d iscuss this option with dispatch specialist in [place]. 7. Followup in 2-4 weeks. Portions of this report were transcribed using voice recognition software. Every effort wa s made to ensure accuracy; however, inadvertent computerized head miller errors may be pre sent. documented in [...] | | | | | | [place] [address] | | | | | | [phone] | | | | | | | | +--------+ + + + + | 11/20/ | Implant | Cardiology | Daljit Singletary, | Remote Device | | 2019 | Monitor | | [address] [facility] | Interrogation | | | | | [place], | (Primary Dx); | | | | | [place] [address] | Presence of | | | | | [phone] | permanent cardiac | | | | [...] + + | [facility] | [place] | | Department [address] | [facility] | | [ rep ct street1[address]] [ rep ct [facility] | | st zip] Signed | - IMAGING | | | | | Patient Name: MOE GAY | | | Physician: MIGUELINA : 1960 Age: 52 Sex: M Unit | | | #: [id number] Exam Date: 12/30/12 Location: | | | IMG Report #: [id number] Page: | | | %(RAD)RES..mtdd.print.filter("pg") of %(RAD) | | | RES..mtdd.print.filter("tpg") | | | | | | Accession Number: [id number] | | | E C H O C A R D I O G R A P H Y R E P O R T | | | HEIGHT: 76" WEIGHT: 270# | | | ROAD DESIGN DRAFTSPERSON: JAMEEL REFERRING DR: TIMMY READING DR: | [...] | | | Transcribed Date/Time: 12/30/2012 16:34 Post Partum Nurse: | | | <<Signature on File>> | | | Daljit | | | MD Gemini [facility] FASE01/02/13 0955 <Electronically signed by | | | Daljit Singletary MD, [facility], FACP, FASE, FASNC> Rashadong | | | MD CLEOPATRA Singletary FASE 12/30/12 1608 Post Partum Nurse: Jessica | | | Inolonxlqrxfa60/08/13 1634 MD ROSEMARY Newby | | | FASE | | + + + + + + + + | Performing | Address | City/[facility] | Phone Number | | Organization | | | | + + + + + | [facility] | [address] | [place] | [phone] | | [facility] | | [address] | | | - IMAGING | | | | + + + + + documented in this encounter Visit Diagnoses + + | Diagnosis | + + | Palpitations - Primary | + + | PVC (premature ventricular contraction) Other premature beats | + + documented in this encounter
--- OUTSIDE RECORDS SUMMARY | ~2019-11-01 | XMS | Encounter Summary ---
Demographics + + + | Address | [address] | | | [place] [address] | + + + | Home Phone [...] Team Providers + +------+ + | Care Cartoon Designer Name | Role | Phone | + +------+ + PCP | Unavailable | + +------+ + Encounter Details +--------+ + + + + | Date | Type | Department | Care Team | Description | +--------+ + + + + | 03/08/ | [facility] | [facility] | Emmanuel Daniel MD | | | 2006 | Encounter | MED CTR GENERIC OP | [address] | | | | | CONV DEPT [address] | [address] | | | | | [place], | [address] | | | | | [place] [address] | | | | | | [phone] | | | +--------+ + + + [...] W | | | | | | [place], | | | | | | [place] [address] | | | | | | [phone] | | | | | | | | +--------+ + + + + | 11/20/ | Implant | Cardiology | Daljit Singletary, | Remote Device | | 2019 | Monitor | | MD [address] | Interrogation | | | | | [place], | (Primary Dx); | | | | | [place] [address] | Presence of | | | | | [phone] | permanent cardiac | | | | [...]
--- OUTSIDE RECORDS SUMMARY | ~2019-11-01 | XMS | Encounter Summary ---
Demographics + + + | Address | [address] | | | [place] [address] | + + + | Home Phone [...] Providers + +------+ + | Care Full Service Vending Driver Name | Role | Phone | [...] | 09/09/ | Office | [facility] | Michael Amanda, | Hyperlipidemia; | | 2011 | Visit | MEDICINE [place] | DO [address] | Hypertension; | | | | [address] | [place] | Chronic pain | | | | [place] | [address] | syndrome; Neck pain, | | | | [address] | | chronic | | | | [phone] | | | +--------+---------+ + + + [...] damage history No ASHD (either angina; prior [place]; prior CABG) No cardiac end organ damage [...] slowly cutting back. Pt was going through [facility] for opiate medications prior to [...] W | | | | | | [place], | | | | | | [place] [address] | | | | | | [phone] | | | | | | | | +--------+ + + + + | 11/20/ | Implant | Cardiology | Daljit Singletary, | Remote Device | | 2019 | Monitor | | MD [address] [facility] | Interrogation | | | | | [place], | (Primary Dx); | | | | | [place] [address] | Presence of | | | | | [phone] | permanent cardiac | | | | [...]
--- OUTSIDE RECORDS SUMMARY | ~2019-11-01 | XMS | Encounter Summary ---
Demographics + + + | Address | [address] | | | [place] [address] | + + + | Home Phone [...] +------+ + | Care Entry Level Sales Representative Name | Role | Phone [...] | | | | of feces, | [place], [place] | [address] | | | | | unspecified | [address] [place] | [place], [place] | | | | | fecal | [place], [place] | [address] | | | | | incontinence | [address] | Phone: | | | | | type | Phone: | [phone] | | | | | Diarrhea, | [phone] | Fax: | | | | | unspecified | Fax: | [phone] | | | | | type | [phone] | | +--------+ + + + + [...] 2018 | | GASTROENTEROLOGY | [address], [place] | | | | | [address] | [address] [place], [place] | | | | | [address] [place], [place] | [address] | | | | | [address] | | | | | | [phone] | | | +--------+ + + + [...] | | | | | | [place] [address] | | | | | | [phone] | | | | | | | | +--------+ + + + + | 11/20/ | Implant | Cardiology | Daljit Singletary, | Remote Device | | 2018 | Monitor | | [address] [place] | Interrogation | | | | | [place], | (Primary Dx); | | | | | [place] [address] | Presence of | | | | | [phone] | permanent cardiac | | | | [...]
--- OUTSIDE RECORDS SUMMARY | ~2019-11-01 | XMS | Encounter Summary ---
Demographics + + + | Address | [address] | | | [place] [address] | + + + | Home Phone [...] Team Providers + +------+ + | Care Keying Machine Operator Name | Role | Phone | + +------+ + PCP | Unavailable | + +------+ + Encounter Details +--------+ + + + + | Date | Type | Department | Care Team | Description | +--------+ + + + + | 12/16/ | [facility] | [facility] | Naresh Mckeon | | | 2010 | Encounter | MED CTR SLEEP | MD Chaya [address] | | | | | CENTER [address] | [place] | | | | | [place] | [place] [address] | | | | | [address] | [phone] | | | | | [phone] | | | +--------+ + + + [...] | | | | | | [place] [address] | | | | | | [phone] | | | | | | | | +--------+ + + + + | 11/20/ | Implant | Cardiology | Daljit Singletary, | Remote Device | | 2019 | Monitor | | MD [address] | Interrogation | | | | | [place], | (Primary Dx); | | | | | [place] [address] | Presence of | | | | | [phone] | permanent cardiac | | | | [...]
--- OUTSIDE RECORDS SUMMARY | ~2019-11-01 | XMS | Encounter Summary ---
Demographics + + + | Address | [address] | | | [place] [address] | + + + | Home Phone [...] Team Providers + +------+ + | Care Wagon Driver Name | Role | Phone | [...] | 06/20/ | Telephone | [facility] | Daljit Singletary, | Chest Pain | | 2018 | | CARDIOLOGY [address] | MD [address] [place] | | | | | [place], | [place], | | | | | [place] [address] | [place] [address] | | | | | [phone] | [phone] | | | | | | | [...] [place], | | | | | | [place] [address] | | | | | | [phone] | | | | | | | | +--------+ + + + + | 11/20/ | Implant | Cardiology | Daljit Singletary, | Remote Device | 2018 | Monitor | | [address] [facility] | Interrogation | | | | | [place], | (Primary Dx); | | | | | [place] [address] | Presence of | | | | | [phone] | permanent cardiac | | | | [...]
--- OUTSIDE RECORDS SUMMARY | ~2019-11-01 | XMS | Encounter Summary ---
Demographics + + + | Address | [address] | | | [place] [address] | + + + | Home Phone [...] Team Providers + +------+ + | Care Hassock Maker Name | Role | Phone | [...] | | CARDIOLOGY [address] | Janeen VP CLIENT SERVICES [address] | | | | | [place], | [place], | | | | | [place] [address] | [place] [address] | | | | | [phone] | [phone] | | | | | | | [...] | | | | | | [place] [address] | | | | | | [phone] | | | | | | | | +--------+ + + + + | 11/20/ | Implant | Cardiology | Daljit Singletary, | Remote Device | | 2018 | Monitor | | MD [address] | Interrogation | | | | | [place], | (Primary Dx); | | | | | [place] [address] | Presence of | | | | | [phone] | permanent cardiac | | | | [...]
--- OUTSIDE RECORDS SUMMARY | ~2019-11-01 | XMS | Encounter Summary ---
Demographics + + + | Address | [address] | | | [place] [address] | + + + | Home Phone [...] Team Providers + +------+ + | Care Boiler/Chiller Technician Name | Role | Phone | + +------+ + | Michael Amanda DO | PCP | | + +------+ + Encounter Details +--------+ + + + + | Date | Type | Department | Care Team | Description | +--------+ + + + + | 05/11/ | Hospital | [facility] | Conversion | Lumbago; | | 2013 | Encounter | MEDICAL [facility]ENTER | Transaction, | Postlaminectomy | | | | CLINICAL DECISION | Provider Unknown | syndrome, cervical | | | | [address] | | region; Cervicalgia | | | | [place], [place] | (Fax) | | | | | [address] | Cesar, | | | | | [phone] | MD Gamaliel | | +--------+ + [...] + + + +---------+ + + | [place]-3 Fatty | CAPS, one capsule by | [...] Date of Service: 05/11/14 150 Status: Signed Large Engine Assembler: Meliza Macario RN (Registered Nurse) Pt discharged [...] Date of Service: 05/11/14 142 Status: Signed Large Engine Assembler: Heike Mckeon RN (Registered Nurse) Called doctor [...] W | | | | | | [place], | | | | | | [place] [address] | | | | | | [phone] | | | | | | | | +--------+ + + + + | 11/20/ | Implant | Cardiology | Daljit Singletary, | Remote Device | | 2018 | Monitor | | MD Sim [facility] | Interrogation | | | | | [place], | (Primary Dx); | | | | | [place] [address] | Presence of | | | | | [phone] | permanent cardiac | | | | [...] | | | intrathecal use. See the dipper and baker examination for details of the | | | injection. Bone algorithm noncontrast technique with reformatted | | | sagittal and coronal images. Prior study for review : CT discogram | | | from 2004 was used to orient this examination given the transitional | | | anatomy of the lumbosacral junction FINDINGS: Consultant Rn is notable | | | for a [...] for intrathecal use. See | | the dipper and baker examination for details of the injection. Bone algorithm noncontrast | | technique with reformatted sagittal and coronal images. Prior study for review : CT | | discogram from 2004 was used to orient this examination given the transitional anatomy | | of the lumbosacral junction FINDINGS: Consultant Rn is notable for a pacing system. Anterior [...]
--- OUTSIDE RECORDS SUMMARY | ~2019-11-01 | XMS | Encounter Summary ---
Demographics + + + | Address | [address] | | | [place] [address] | + + + | Home Phone [...] Providers + +------+ + | Care Traffic And Transport Planner Name | Role | Phone | [...] | | | [place] | [place] [address] | | | | | | [address] | Phone: | | | | | | Phone: | [phone] | | | | | | [phone] | Fax: | | | | | | Fax: | [phone] | | | | | | [phone] | | +--------+ + + + + [...] | diurnal enuresis | | | | [place], [place] | [place], [place] | (Primary Dx); BPH | | | | [address] | [address] | with | | | | [phone] | | obstruction/lower | | | | [...] Haleigh rodarte states that the surgeon in [place] who performed his neck surgery is no longer practicing a nd was apparently disciplined and had his license revoked by the [facility]. He has ed marijuana for his [...] CLASSIFIED ELSEWHERE (12/15/2010); Ulcerative colitis ([facility]); Ches t pain; SINUS BRADYCARDIA; HEPATITIS B; PUD; FATTY LIVER DISEASE; SUBSTANCE ABUSE, MULTIPLE; Preventative health care (06/26/2013); Bladder troubles; Tuberculosis; Anginal pain ([facility]); St roke ([facility]); Prostate troubles; and Neurological disorder. Past [...] needed for Chest pain. 25 tablet 12 [place]-3 Fatty Acids (SALMON OIL-1000 PO) CAPS, one [...] Date/Time: 04/22/2012 16:56 Transcribed Date/Time: 04/22/2012 17:32 Software Test Manager: <Electronically Signed by Jama Solis MD> 04/23/12 [...] Date/Time: 04/23/2012 10:54 Transcribed Date/Time: 04/23/2012 11:06 Software Test Manager: <Electronically Signed by Jama Solis MD> 04/24/12 4309 IMPRESSION: 1. Nocturnal and diurnal enuresis. I [...] bladder, still believe that the recommendations from [facility] neurosurgeon, Dr. Demarco, on 03/13/2014 [...] have not thoroughly proofread this note, and loaf counter erro rs may occur. CC: Kirk French [...] | | | | | | [place] [address] | | | | | | [phone] | | | | | | | | +--------+ + + + + | 11/20/ | Implant | Cardiology | Daljit Singletary, | Remote Device | | 2019 | Monitor | | [address] [facility] | Interrogation | | | | | [place], | (Primary Dx); | | | | | [place] [address] | Presence of | | | | | [phone] | permanent cardiac | | | | [...] 1.001 - 1.030 | | | | [place], | | | | | | UA, [...]
--- OUTSIDE RECORDS SUMMARY | ~2019-11-01 | XMS | Encounter Summary ---
Demographics + + + | Address | [address] | | | [place] [address] | + + + | Home Phone [...] + +------+ + | Care Operations Research Manager Name | Role | Phone | [...] + + | 08/24/ | Office | [facility] | Silvia, | Ascending thoracic | | 2018 | Visit | CARDIOLOGY [address] | [address] | aortic aneurysm | | | | [place], | [place], | ([facility]) (Primary Dx); | | | | [place] [address] | [place] [address] | Syncope, unspecified | | | | [phone] | [phone] | syncope type; | | | | | | Hypertension, | | | | | | unspecified type; | | | | | | Coronary artery | | | | | | disease involving | | | | | | benton coronary | | | | | | artery of benton | | | | | | heart [...] of non-critical coronary artery d isease involving benton coronary artery of benton heart without angina pectoris, essential h ypertension, [...] Preventative health care Coronary artery disease involving benton coronary artery of benton heart without angina pectoris Cannabis abuse, daily [...] by mouth Daily. 90 tabl et 1 [facility] (OSTEO BI-FLEX/5-LOXIN ADVANCED PO) Take [...] DOSE, CALL 911 100 tablet 3 [place]-3 Fatty Acids (SALMON OIL-1000 PO) CAPS, one [...] now present Confirmed by HIREN WINKLER, ANGELA ([id number]) on 07/28/2018 6:03:35 AM LAB RESULTS reviewed [...] 157 04/11/2018 I reviewed records from [facility] for emergency department visit o n 07/27/2018 [...] to go back in 3 days to [place] for an attempt of ablation under [...] He is in class II of the [place] [employer] f unctional class. There are [...] subsided. 2. Non-critical Coronary artery disease involving benton coronary artery of benton heart [facility] angina pectoris: A. Normal exercise sestamibi [...] this chart may have been created with [employer] voice recognition software. Occasi onal wrong-word or [...] W | | | | | | [place], | | | | | | [place] [address] | | | | | | [phone] | | | | | | | | +--------+ + + + + | 11/20/ | Implant | Cardiology | Daljit Singletary, | Remote Device | | 2018 | Monitor | | [address] | Interrogation | | | | | [place], | (Primary Dx); | | | | | [place] [address] | Presence of | | | | | [phone] | permanent cardiac | | | | [...] + + | Coronary artery disease involving benton coronary artery of benton heart without | | angina pectoris | [...]
--- OUTSIDE RECORDS SUMMARY | ~2019-11-01 | XMS | Encounter Summary ---
Demographics + + + | Address | [address] | | | [place] [address] | + + + | Home Phone [...] Team Providers + +------+ + | Care Milking System Installer Name | Role | Phone [...] Provider Unknown | | | | | [place], [place] | [phone] | | | | | [address] | (Fax) | | | | | [phone] | | | +--------+ + + + [...] + + + +---------+ + + | [place]-3 Fatty | CAPS, one capsule by | [...] | | | | | | | #[id number], exp 07/2016 | | | | | [...] | | | | | | [place] [address] | | | | | | [phone] | | | | | | | | +--------+ + + + + | 11/20/ | Implant | Cardiology | Daljit Singletary, | Remote Device | | 2019 | Monitor | | MD [address] | Interrogation | | | | | [place], | (Primary Dx); | | | | | [place] [address] | Presence of | | | | | [phone] | permanent cardiac | | | | [...]
--- OUTSIDE RECORDS SUMMARY | ~2019-11-01 | XMS | Encounter Summary ---
Demographics + + + | Address | [address] | | | [place] [address] | + + + | Home Phone [...] Team Providers + +------+ + | Care Berry Planter Name | Role | Phone | + +------+ + | Michael Amanda DO | PCP | | + +------+ + Encounter Details +--------+ + + + + | Date | Type | Department | Care Team | Description | +--------+ + + + + | 06/26/ | Hospital | [facility] | iMchael Amanda, | Diplopia | | 2012 | Encounter | MED CTR LABORATORY | DO [address] | | | | | [address] [place] | [place], [place] | | | | | [place], [place] | [address] | | | | | [address] | | | | | | [phone] | | | +--------+ + + + [...] + + + +---------+ + + | Edge[place]-3 Fatty | CAPS, one capsule by | [...] W | | | | | | [place], | | | | | | [place] [address] | | | | | | [phone] | | | | | | | | +--------+ + + + + | 11/20/ | Implant | Cardiology | Daljit Singletary, | Remote Device | | 2018 | Monitor | | [facility] | Interrogation | | | | | [facility], | (Primary Dx); | | | | | [place] [address] | Presence of | | | | | [phone] | permanent cardiac | | | | [...] + | [facility] | [address] | [place], [place] | [phone] | | [facility] | | [address] | | | - LABORATORY | | | | + + + + + | [facility] | [address] | [place], [place] | | | [facility] | | [address] | | | - LABORATORY | | [...] [address] | [place] | [phone] | | [facility] | | [address] | | | - LABORATORY | | | | + + + + + | [facility] | [address] | [place] | | | [facility] | | [address] | | | - LABORATORY | | [...] + | [facility] | [address] | [place] | [phone] | | [facility] | | [address] | | | - LABORATORY | | | | + + + + + | [facility] | [address] | [place], [place] | | | [facility] | | [address] | | | - LABORATORY | | [...] + | [facility] | [address] | [place] | [phone] | | [facility] | | [address] | | | - LABORATORY | | | | + + + + + | [facility] | [address] | [place], [place] | | | [facility] | | [address] | | | - LABORATORY | | [...] + | [facility] | [address] | [place] | [phone] | | [facility] | | [address] | | | - LABORATORY | | | | + + + + + | [facility] | [address] | [place] | | | [facility] | | [address] | | | - LABORATORY | | [...] [facility] | | | | [facility] | | MEDICAL | | | [...] + | [facility] | [address] | [place] | [phone] | | [facility] | | [address] | | | - LABORATORY | | | | + + + + + | [facility] | [address] | [place] | | | [facility] | | [address] | | | - LABORATORY | | | | + + + + + documented in this encounter Visit Diagnoses + + | Diagnosis | + + | Diplopia | + + documented in this encounter"
--- OUTSIDE RECORDS SUMMARY | ~2019-11-01 | XMS | Encounter Summary ---
Demographics + + + | Address | [address] | | | [place] [address] | + + + | Home Phone [...] 2014 | | CARDIOLOGY [address] | MULTIPLE DRUM SANDER [address] | | | | | [place], | [place], [place] | | | | | [place] [address] | [address] | | | | | [phone] | | | +--------+ + + + [...] | 11/09/ | Office | Cardiology | [place], | | | 2019 | Visit | | [place] [address] | | | | | | [place], | | | | | | [place] [address] | | | | | | [phone] | | | | | | | | +--------+ + + + + | 11/20/ | Implant | Cardiology | Daljit Singletary, | Remote Device | | 2018 | Monitor | | MD [address] | Interrogation | | | | | [place], | (Primary Dx); | | | | | [place] [address] | Presence of | | | | | [phone] | permanent cardiac | | | | [...]
--- OUTSIDE RECORDS SUMMARY | ~2019-11-01 | XMS | Encounter Summary ---
Demographics + + + | Address | [address] | | | [place] [address] | + + + | Home Phone [...] Providers + +------+ + | Care Truck Technician Name | Role | Phone | [...] | | | | [place] | [address] | | | | | [address] | | | | | | [phone] | | | +--------+ + + + [...] | | | | | | [place] [address] | | | | | | [phone] | | | | | | | | +--------+ + + + + | 11/20/ | Implant | Cardiology | Daljit Singletary, | Remote Device | | 2018 | Monitor | | [facility] | Interrogation | | | | | [place], | (Primary Dx); | | | | | [place] [address] | Presence of | | | | | [phone] | permanent cardiac | | | | [...]
--- OUTSIDE RECORDS SUMMARY | ~2019-11-01 | XMS | Encounter Summary ---
Demographics + + + | Address | [address] | | | [place] [address] | + + + | Home Phone [...] | 01/15/ | [facility] | [facility] | Emmanuel Daniel MD | | | 1994 | Encounter | MED CTR GENERIC OP | [address] | | | | | CONV DEPT [address] | [address] [place] [address] | | | | | [place], | [address] | | | | | [place] [address] | | | | | | [phone] | | | +--------+ + + + [...] W | | | | | | [place], | | | | | | [place] [address] | | | | | | [phone] | | | | | | | | +--------+ + + + + | 11/20/ | Implant | Cardiology | Daljit Singletary, | Remote Device | | 2019 | Monitor | | MD [address] | Interrogation | | | | | [facility], | (Primary Dx); | | | | | [place] [address] | Presence of | | | | | [phone] | permanent cardiac | | | | [...]
--- OUTSIDE RECORDS SUMMARY | ~2019-11-01 | XMS | Encounter Summary ---
Demographics + + + | Address | [address] | | | [place] [address] | + + + | Home Phone [...] Team Providers + +------+ + | Care Entrepreneurship Program Director Name | Role | Phone [...] + | 02/27/ | Telephone | [facility] | [place], | Chest Pain (Patient | | 2013 | | CARDIOLOGY [address] | Janeen, RELATIONS SPECIALIST [address] | having chest pain) | | | | [place], | [place], | | | | | [place] [address] | [place] [address] | | | | | [phone] | [phone] | | | | | | | [...] W | | | | | | [place], | | | | | | [place] [address] | | | | | | [phone] | | | | | | | | +--------+ + + + + | 11/20/ | Implant | Cardiology | Daljit Singletary, | Remote Device | | 2018 | Monitor | | [address] [place] | Interrogation | | | | | [place], | (Primary Dx); | | | | | [place] [address] | Presence of | | | | | [phone] | permanent cardiac | | | | [...]
--- OUTSIDE RECORDS SUMMARY | ~2019-11-01 | XMS | Encounter Summary ---
Demographics + + + | Address | [address] | | | [place] [address] | + + + | Home Phone [...] + +------+ + | Care Web Press Roll Tender Name | Role | Phone | [...] | 01/04/ | Telephone | [facility] | Emmanuel Daniel MD | Other | | 2019 | | GASTROENTEROLOGY | [address], [place] | | | | | [address] [place] | [address] [place], [place] | | | | | 210 [place], [place] | [address] | | | | | [address] | | | | | | [phone] | | | +--------+ + + + [...] | | | | | | [place] [address] | | | | | | [phone] | | | | | | | | +--------+ + + + + | 11/20/ | Implant | Cardiology | Daljit Singletary, | Remote Device | | 2018 | Monitor | | MD [address] | Interrogation | | | | | [place], | (Primary Dx); | | | | | [place] [address] | Presence of | | | | | [phone] | permanent cardiac | | | | [...]
--- OUTSIDE RECORDS SUMMARY | ~2019-11-01 | XMS | Encounter Summary ---
Demographics + + + | Address | [address] | | | [place] [address] | + + + | Home Phone [...] Providers + +------+ + | Care Manager Bridge Name | Role | Phone | + [...] Provider Unknown | | | | | [place], [place] | [phone] | | | | | [address] | | | | | | [phone] | | | +--------+ + + + [...] + + + +---------+ + + | Casanova-3 Fatty | CAPS, one capsule by | [...] | | | | | | [place] [address] | | | | | | [phone] | | | | | | | | +--------+ + + + + | 11/20/ | Implant | Cardiology | Daljit Singletary, | Remote Device | | 2019 | Monitor | | [facility] | Interrogation | | | | | [place], | (Primary Dx); | | | | | [place] [address] | Presence of | | | | | [phone] | permanent cardiac | | | | [...]
--- OUTSIDE RECORDS SUMMARY | ~2019-11-01 | XMS | Encounter Summary ---
Demographics + + + | Address | [address] | | | [place] [address] | + + + | Home Phone [...] Providers + +------+ + | Care Development Mechanic Name | Role | Phone | [...] | | CARDIOLOGY [address] | [address] | | | | | [place], | [place], | | | | | [place] [address] | [place] [address] | | | | | [phone] | [phone] | | | | | | | [...] | | | | | | [place] [address] | | | | | | [phone] | | | | | | | | +--------+ + + + + | 11/20/ | Implant | Cardiology | Daljit Singletary, | Remote Device | | 2019 | Monitor | | [facility] | Interrogation | | | | | [address], | (Primary Dx); | | | | | [place] [address] | Presence of | | | | | [phone] | permanent cardiac | | | | [...] + | [facility] | [address] | [place] | [phone] | | [facility] | | [address] | | | - LABORATORY | | | | + + + + + | [facility] | [address] | [place] | | | [facility] | | [address] | | | - LABORATORY | | [...] [place] | | | | | [facility] | | | | | - LABORATORY | | | | + +---------+ + + documented in this encounter Visit Diagnoses Not on filedocumented in this encounter"
--- OUTSIDE RECORDS SUMMARY | ~2019-11-01 | XMS | Encounter Summary ---
Demographics + + + | Address | [address] | | | [place] [address] | + + + | Home Phone [...] Providers + +------+ + | Care Program Evaluator Name | Role | Phone | + [...] 2018 | | GASTROENTEROLOGY | [address], [place] | about prep for | | | | [address] [place] | [address] [place], [place] | procedure) | | | | [address] [place], [place] | [address] | | | | | [address] | | | | | | [phone] | | | +--------+ + + + [...] | | | | | | [place] [address] | | | | | | [phone] | | | | | | | | +--------+ + + + + | 11/20/ | Implant | Cardiology | Daljit Singletary, | Remote Device | | 2019 | Monitor | | MD [address] | Interrogation | | | | | [place], | (Primary Dx); | | | | | [place] [address] | Presence of | | | | | [phone] | permanent cardiac | | | | [...]
--- OUTSIDE RECORDS SUMMARY | ~2019-11-01 | XMS | Encounter Summary ---
Demographics + + + | Address | [address] | | | [place] [address] | + + + | Home Phone [...] Team Providers + +------+ + | Care Chiropractic Neurologist Name | Role | Phone | + [...] | Palpitations | [address] | | | | | Procedures | [address] | [address] [place] | | | | | ECHO | [place], | [place], [place] | | | | | Complete | [place] [address] | [address] | | | | | | Phone: | Phone: | | | | | | [phone] | [phone] | | | | | | Fax: | Fax: | | | | | | [phone] | [phone] | +--------+--------+ + + + + Encounter Details +--------+ + + + + | Date | Type | Department | Care Team | Description | +--------+ + + + + | 12/30/ | Hospital | [facility] | TimmyshaistateshaShaistatimmy, | Palpitations | | 2012 - | Encounter | MED CTR XRAY [address] | MD [address] | | | | | [place] | [place], | | | 01/01/ | | [place] [address] | [place] [address] | | | 2012 | | [phone] | | | | | | | [...] + + + +---------+ + + | Alden-3 Fatty | CAPS, one capsule by | [...] | | | | | | [place] [address] | | | | | | [phone] | | | | | | | | +--------+ + + + + | 11/20/ | Implant | Cardiology | aDljit Singletary, | Remote Device | | 2019 | Monitor | | [address] [place] | Interrogation | | | | | [place], | (Primary Dx); | | | | | [place] [address] | Presence of | | | | | [phone] | permanent cardiac | | | | [...] + + | [facility] | [place] | | Department [address] [facility] | [facility] | | [ rep ct street1+2] [ rep ct [facility] | | st zip] Signed | - IMAGING | | | | | Patient Name: MOE GAY W | | | Physician: MIGUELINA : 1960 Age: 52 Sex: M Unit | | | #: [id number] Exam Date: 12/30/12 Location: | | | G Report #: [id number] Page: | | | %(RAD)RES..mtdd.print.filter("pg") of %(RAD) | | | RES..mtdd.print.filter("tpg") | | | | | | Accession Number: [id number] | | | E C H O C A R D I O G R A P H Y R E P O R T | | | HEIGHT: 76" WEIGHT: 270# | | | CABLE TOWER OPERATOR: JAMEEL REFERRING DR: TIMMY DRAKE DR: [...] | | | Transcribed Date/Time: 12/30/2012 16:34 Heel Burnisher: | | | <<Signature on File>> | | | Daljit | | | MD CLEOPATRA Singletary FASE01/02/13 0955 <Electronically signed by | | | Daljit Singletary MD, [facility], FACP, FASE, FASNC> Rashadong | | | MD CLEOPATRA Singletary 12/30/12 1608 Heel Burnisher: [employer]ma Fl[employer]karyx | | | Uawwnfvqvhdsk37/08/13 1634 Daljit Singletary MD FACC | | | FASE | | + + + + + + + + | Performing | Address | City/State/Zipcode | Phone Number | | Organization | | | | + + + + + | [facility] | [address] | [place] | [phone] | | [facility] | | [address] | | | - IMAGING | | | | + + + + + documented in this encounter Visit Diagnoses + + | Diagnosis | + + | Palpitations | + + documented in this encounter
--- OUTSIDE RECORDS SUMMARY | ~2019-11-01 | XMS | Encounter Summary ---
Demographics + + + | Address | [address] | | | [place] [address] | + + + | Home Phone [...] Team Providers + +------+ + | Care Shafting Cleaner Name | Role | Phone | + +------+ + | Kirk French MD | PCP | | + +------+ + Encounter Details +--------+ + + + + | Date | Type | Department | Care Team | Description | +--------+ + + + + | 03/15/ | Hospital | [facility] MEDICAL | Conversion | | | 2017 | Encounter | [facility] X[facility] | Transaction, | | | | | [address] | Provider Unknown | | | | | [address] [place] | [phone] | | | | | [address] | | | | | | [phone] | Kirk French | | | | | | MD Bre[address] | | | | | | [address] [place], | | | | | | [place] [address] | | | | | | [phone] | | | | | | | [...] | | | | | | [place] [address] | | | | | | [phone] | | | | | | | | +--------+ + + + + | 11/20/ | Implant | Cardiology | Daljit Singletary, | Remote Device | | 2019 | Monitor | | [facility] | Interrogation | | | | | [place], | (Primary Dx); | | | | | [place] [address] | Presence of | | | | | [phone] | permanent cardiac | | | | [...]
--- OUTSIDE RECORDS SUMMARY | ~2019-11-01 | XMS | Encounter Summary ---
Demographics + + + | Address | [address] | | | [place] [address] | + + + | Home Phone [...] Providers + +------+ + | Care Legal Nurse Consultant Name | Role | Phone | + +------+ + PCP | Unavailable | + +------+ + Encounter Details +--------+ + + + + | Date | Type | Department | Care Team | Description | +--------+ + + + + | 10/26/ | Hospital | [facility] | | | | 1994 | Encounter | MED CTR EMERGENCY | | | | | | CENTER [address] | | | | | | [place] | | | | | | [address] | | | | | | [phone] | | | +--------+ + + + [...] | | | | | | [place] [address] | | | | | | [phone] | | | | | | | | +--------+ + + + + | 11/20/ | Implant | Cardiology | Daljit Singletary, | Remote Device | | 2018 | Monitor | | [address] [facility] | Interrogation | | | | | [place], | (Primary Dx); | | | | | [place] [address] | Presence of | | | | | [phone] | permanent cardiac | | | | [...]
--- OUTSIDE RECORDS SUMMARY | ~2019-11-01 | XMS | Encounter Summary ---
Demographics + + + | Address | [address] | | | [place] [address] | + + + | Home Phone [...] Team Providers + +------+ + | Care Induction Heating Equipment Setter Name | Role | Phone | [...] W | | | | | [place], | [place], | | | | | [place] [address] | [place] [address] | | | | | [phone] | [phone] | | | | | | | [...] | | | | | | [place] [address] | | | | | | [phone] | | | | | | | | +--------+ + + + + | 11/20/ | Implant | Cardiology | Daljit Singletary, | Remote Device | | 2018 | Monitor | | [address] [place] | Interrogation | | | | | [place], | (Primary Dx); | | | | | [place] [address] | Presence of | | | | | [phone] | permanent cardiac | | | | [...]
--- OUTSIDE RECORDS SUMMARY | ~2019-11-01 | XMS | Encounter Summary ---
Demographics + + + | Address | [address] | | | [place] [address] | + + + | Home Phone [...] Providers + +------+ + | Care Aircraft Electronics Technical Officer Name | Role | Phone [...] | | | | CENTER [address] | [address] [place] | | | | | [place], [place] | [place] [address] | | | | | [address] | [phone] | | | | | [phone] | | | +--------+ + + + [...] | | | | | | | [place] coronary | | | | | | | artery of [place] | | | | | | [...] | | | | | | [place], | | | | | | [place] [address] | | | | | | [phone] | | | | | | | | +--------+ + + + + | 11/20/ | Implant | Cardiology | Daljit Singletary, | Remote Device | | 2018 | Monitor | | [address] [place] | Interrogation | | | | | [place], | (Primary Dx); | | | | | [place] [address] | Presence of | | | | | [phone] | permanent cardiac | | | | [...] W?MRN: | | | | | | [id number] | | | [id number] | | | riteri | | | [...] | | | St. | | | Rapel[place] | | | y | | | [...] | | | St. | | | Rapelje | | | y | | | [...] | | | St. | | | Rapelje | | | y H. | | [...] | | | St. | | | Rapelje | | | y H. | | [...] | | M.D. | | | Oil Operator | | | al | | [...] | | | ent/60 | | | [id number] | | | -[id number] | | | [...] | | | Lavender | | | [facility] | | | Top Tube [...] [address] | [place] | [phone] | | [facility] | | [address] | | | - LABORATORY | | [...] [address] | [place] | [phone] | | [facility] | | [address] | | | - LABORATORY | | [...] + | [facility] | [address] | [place] | [phone] | | [facility] | | [address] | | | - LABORATORY | | [...] + | [facility] | [address] | [place] | [phone] | | [facility] | | [address] | | | - LABORATORY | | [...] [address] | [place] | [phone] | | [facility] | | [address] | | | - LABORATORY | | [...] 10 | 9 - 23 mg/dL | [facility] | | | | | | [facility] | | | | | | MEDICAL | | | | | | CENTER - | | | | | | LABORATORY | | + + + + + + | Creatinine | 0.96 | 0.70 - 1.30 | [facility] | | | | | mg/dL | [facility] | | | | | | MEDICAL | | | | | | CENTER - | | | | | | LABORATORY | | + + + + + + | eGFR if not | >60Comment: GLOMERULAR | >=60 | [facility] | | | | FILTRATION | mL/min/1.73m2 | [facility] [place] | | | SPANISH | RATE,ESTIMATED | | MEDICAL | | | | mL/min/1.69y0Eifd than | | CENTER - | | [...] [address] | [place] | [phone] | | [facility] | | [address] | | | - LABORATORY | | [...] [address] | [place] | [phone] | | [facility] | | [address] | | | - LABORATORY | | [...] - 1.030 | [facility] | | | Makinen | | | [facility] [place] | | [...] | + + + + + | [facility] | [address] | [place], [place] | [phone] | | [facility] | | [address] | | | - LABORATORY | | [...]
--- OUTSIDE RECORDS SUMMARY | ~2019-11-01 | XMS | Encounter Summary ---
Demographics + + + | Address | [address] | | | [place] [address] | + + + | Home Phone [...] Team Providers + +------+ + | Care Host/Hostess Head Name | Role | Phone | [...] | 06/17/ | Telephone | [facility] [place] | [place], | Lab Order (due for | | 2015 | | CARDIOLOGY [address] | [place] [address] | fasting labs prior | | | | [place], | [place], | to appt) | | | | [place] [address] | [place] [address] | | | | | [phone] | [phone] | | | | | | | [...] | | | | | | [place] [address] | | | | | | [phone] | | | | | | | | +--------+ + + + + | 11/20/ | Implant | Cardiology | Daljit Singletary, | Remote Device | | 2018 | Monitor | | MD [address] | Interrogation | | | | | [place], | (Primary Dx); | | | | | [place] [address] | Presence of | | | | | [phone] | permanent cardiac | | | | [...]
--- OUTSIDE RECORDS SUMMARY | ~2019-11-01 | XMS | Encounter Summary ---
Demographics + + + | Address | [address] | | | [place] [address] | + + + | Home Phone [...] Team Providers + +------+ + | Care Cognos Architect Name | Role | Phone | + +------+ + PCP | Unavailable | + +------+ + Encounter Details +--------+ + + + + | Date | Type | Department | Care Team | Description | +--------+ + + + + | 06/17/ | Hospital | [facility] | | | | 2007 | Encounter | MED CTR EMERGENCY | | | | | | [place] [address] | | | | | | [place] | | | | | | [address] | | | | | | [phone] | | | +--------+ + + + [...] | | | | | | [place] [address] | | | | | | [phone] | | | | | | | | +--------+ + + + + | 11/20/ | Implant | Cardiology | Daljit Singletary, | Remote Device | | 2018 | Monitor | | [facility] | Interrogation | | | | | [place], | (Primary Dx); | | | | | [place] [address] | Presence of | | | | | [phone] | permanent cardiac | | | | [...]
--- OUTSIDE RECORDS SUMMARY | ~2019-11-01 | XMS | Encounter Summary ---
Demographics + + + | Address | [address] | | | [place] [address] | + + + | Home Phone [...] Providers + +------+ + | Care Automotive Lube Technician Name | Role | Phone | [...] [address] | | | | | [address] | [place] | | | | | [phone] | [address] | | | | | | [phone] | | | | | | | [...] Notes by Kylah Fraser CMA at 04/11/18 9024 Author: Kylah Fraser CMA Service: (none) Author Type: Bank Representative Filed: 04/19/18 1118 Encounter Date: 04/11/2018 Status: Signed Asset Protection Specialist: Kylah Fraser CMA (Bank Representative) See telephone encounter 04/19/18. Karen pfeiffer in [...] | | | | | | [place] [address] | | | | | | [phone] | | | | | | | | +--------+ + + + + | 11/20/ | Implant | Cardiology | Daljit Singletary, | Remote Device | | 2018 | Monitor | | MD [place] | Interrogation | | | | | [place], | (Primary Dx); | | | | | [place] [address] | Presence of | | | | | [phone] | permanent cardiac | | | | [...]
--- OUTSIDE RECORDS SUMMARY | ~2019-11-01 | XMS | Encounter Summary ---
Demographics + + + | Address | [address] | | | [place] [address] | + + + | Home Phone [...] Providers + +------+ + | Care Program Support Specialist Name | Role | Phone [...] [address] | | | | [address], | [place], | | | | | [place] [address] | [place] [address] | | | | | [phone] | [phone] | | | | | | | [...] | | | | | | [place] [address] | | | | | | [phone] | | | | | | | | +--------+ + + + + | 11/20/ | Implant | Cardiology | Daljit Singletary, | Remote Device | | 2019 | Monitor | | MD [address] [facility] | Interrogation | | | | | [place], | (Primary Dx); | | | | | [place] [address] | Presence of | | | | | [phone] | permanent cardiac | | | | [...] | [facility] | | [address] | | | - LABORATORY | | [...] | | | LAB | | | [place], | | | | | | External [...] + | [facility] | [address] | [place] | | | [facility] | | [address] | | | - LABORATORY | | [...]
--- OUTSIDE RECORDS SUMMARY | ~2019-11-01 | XMS | Encounter Summary ---
Demographics + + + | Address | [address] | | | [place] [address] | + + + | Home Phone [...] Providers + +------+ + | Care Pbx Mechanic Name | Role | Phone | [...] | | CARDIOLOGY [address] | Janeen VOCATIONAL ADVISER [address] | | | | | [place], | [place], | | | | | [place] [address] | [place] [address] | | | | | [phone] | [phone] | | | | | | | [...] | | | | | | [place] [address] | | | | | | [phone] | | | | | | | | +--------+ + + + + | 11/20/ | Implant | Cardiology | Daljit Singletary, | Remote Device | | 2018 | Monitor | | MD Chiquis Oro | Interrogation | | | | | [place], | (Primary Dx); | | | | | [place] [address] | Presence of | | | | | [phone] | permanent cardiac | | | | [...]
--- OUTSIDE RECORDS SUMMARY | ~2019-11-01 | XMS | Encounter Summary ---
Demographics + + + | Address | [address] | | | [place] [address] | + + + | Home Phone [...] + +------+ + | Care Ice Cream Dipper Name | Role | Phone | + +------+ + | Kirk French MD | PCP | | + +------+ + Encounter Details +--------+---------+ + + + | Date | Type | Department | Care Team | Description | +--------+---------+ + + + | 09/26/ | Office | [facility] | Kirk French | Weight loss (Primary | | 2018 | Visit | [facility] | MD [address] | Dx); Bipolar | | | | [facility] [address] | affective disorder, | | | | [address] | [place] [address] | remission status | | | | [place], [place] | [phone] | unspecified (HCC); | | | | [address] | | Mixed anxiety | | | | [phone] | | depressive disorder; | | | [...] LHC; Surgeon: Daljit Singletary MD; Location: [facility] CV LAB CARDIAC CATHERIZATION N/A 01/25/2019 Procedure: CV Cor Angio; Surgeon: Daljit Singletary MD; Location: [facility] CV LAB COLONOSCOPY N/A 12/24/2017 Procedure: COLONOSCOPY; Surgeon: Emmanuel Daniel MD; Location: [facility] MEDICAL PROCEDURE UNIT COLONOSCOPY N/A 01/05/2019 Procedure: COLONOSCOPY; Surgeon: Emmanuel Daniel MD; Location: [facility] MEDICAL PROCEDURE UNIT EGD 12/24/2017 HARDWARE [...] EGD; Surgeon: Emmanuel Daniel MD; Location: [facility] MEDICAL PROCEDURE UNIT UPPER GASTROINTESTINAL ENDOSCOPY N/A 01/05/2019 Procedure: EGD; Surgeon: Emmanuel Daniel MD; Location: [facility] MEDICAL PROCEDURE UNIT URETEROSCOPY Left 04/13/2019 Procedure: Cystoscopy, Left ureteroscopy with laser lithotripsy, Left ureteral stent place ment; Surgeon: Matthew Uriarte MD; Location: [facility] MAIN OR VASECTOMY Social History Socioeconomic [...] NEEDED FOR CHEST PAIN 250 tablet 0 [place]-3 Fatty Acids (SALMON OIL-1000 PO) CAPS, one capsule by mouth daily twice daily ondansetron (ZOFRAN ODT) 4 mg disintegrating tablet Take 4 mg by mouth every 8 hours as needed for Nausea. ONE TOUCH DELICA LANCETS [facility] [...] PLT 169 06/02/2019 No results found for: [id number] No results found for: FOLATE No results [...] Co multiple ER visits [facility] Already followed by [facility] in [...] dollars a month. We will defer to [facility], perhaps to have some sort of a [...] | | | | | | [place] [address] | | | | | | [phone] | | | | | | | | +--------+ + + + + | 11/20/ | Implant | Cardiology | Daljit Singletary, | Remote Device | | 2018 | Monitor | | MD Chiquis Oro | Interrogation | | | | | [place], | (Primary Dx); | | | | | [place] [address] | Presence of | | | | | [phone] | permanent cardiac | | | | [...]
--- OUTSIDE RECORDS SUMMARY | ~2019-11-01 | XMS | Encounter Summary ---
Demographics + + + | Address | [address] | | | [place] [address] | + + + | Home Phone [...] + +------+ + | Care Human Resources Supervisor Name | Role | Phone | [...] | | GASTROENTEROLOGY | [address], [place] | Syndrome | | | | [address] [place] | [address] [place], [place] | | | | | [address] [place], [place] | [address] | | | | | [address] | | | | | | [phone] | | | +--------+ + + + [...] | | | | | | [place] [address] | | | | | | [phone] | | | | | | | | +--------+ + + + + | 11/20/ | Implant | Cardiology | Daljit Singletary, | Remote Device | | 2018 | Monitor | | MD [address]iquis Oro | Interrogation | | | | | [place], | (Primary Dx); | | | | | [place] [address] | Presence of | | | | | [phone] | permanent cardiac | | | | [...]
--- OUTSIDE RECORDS SUMMARY | ~2019-11-01 | XMS | Encounter Summary ---
Demographics + + + | Address | [address] | | | [place] [address] | + + + | Home Phone [...] + | 08/14/ | Telephone | [facility] | Michael Amanda, | Appointment | | 2012 | | [facility] [address] | DO [address] | | | | | [facility] | [place] | | | | | [place], [place] | [address] | | | | | [address] | | | | | | [phone] | | | +--------+ + + + [...] | | | | | | [place], | | | | | | [place] [address] | | | | | | [phone] | | | | | | | | +--------+ + + + + | 11/20/ | Implant | Cardiology | Daljit Singletary, | Remote Device | | 2018 | Monitor | | [address] [facility] | Interrogation | | | | | [place], | (Primary Dx); | | | | | [place] [address] | Presence of | | | | | [phone] | permanent cardiac | | | | [...]
--- OUTSIDE RECORDS SUMMARY | ~2019-11-01 | XMS | Encounter Summary ---
Demographics + + + | Address | [address] | | | [place] [address] | + + + | Home Phone [...] + +------+ + | Care Commercial Lending Assistant Name | Role | Phone | + +------+ + PCP | Unavailable | + +------+ + Encounter Details +--------+ + + + + | Date | Type | Department | Care Team | Description | +--------+ + + + + | 06/23/ | [facility] | [facility] | Arthur Page MD | | | 2007 - | Encounter | MED CTR MED ONC | [address] [facility] | | | | | [address] [place] | [place] | | | 06/25/ | | [place] [address] | [address] | | | 2007 | | [phone] | | | +--------+ + + + [...] | | | | | | [place] [address] | | | | | | [phone] | | | | | | | | +--------+ + + + + | 11/20/ | Implant | Cardiology | Daljit Singletary, | Remote Device | | 2019 | Monitor | | MD [address]iqu[address]ro | Interrogation | | | | | [place], | (Primary Dx); | | | | | [place] [address] | Presence of | | | | | [phone] | permanent cardiac | | | | [...]
--- OUTSIDE RECORDS SUMMARY | ~2019-11-01 | XMS | Encounter Summary ---
Demographics + + + | Address | [address] | | | [place] [address] | + + + | Home Phone [...] Providers + +------+ + | Care Personnel Research Psychologist Name | Role | Phone | [...] | 09/30/ | Telephone | [facility] [place] | Daljit Singletary, | Other (Danieljoao | | 2018 | | [place] [address] | [address] | remote) | | | | [place], | [place], | | | | | [place] [address] | [place] [address] | | | | | [phone] | [phone] | | | | | | | [...] W | | | | | | [place], | | | | | | [place] [address] | | | | | | [phone] | | | | | | | | +--------+ + + + + | 11/20/ | Implant | Cardiology | Daljit Singletary, | Remote Device | | 2018 | Monitor | | MD [address] [place] | Interrogation | | | | | [place], | (Primary Dx); | | | | | [place] [address] | Presence of | | | | | [phone] | permanent cardiac | | | | [...]
--- OUTSIDE RECORDS SUMMARY | ~2019-11-01 | XMS | Encounter Summary ---
Demographics + + + | Address | [address] | | | [place] [address] | + + + | Home Phone [...] Providers + +------+ + | Care Surgical Instrument Maker Name | Role | Phone | [...] CTR CASE | RN | (referral from [facility]) | | | | MANAGEMENT [address] | | | | | | [place], | | | | | | [place] [address] | | | | | | [phone] | | | +--------+ + + + [...] | | | | | | [place] [address] | | | | | | [phone] | | | | | | | | +--------+ + + + + | 11/20/ | Implant | Cardiology | Daljit Singletary, | Remote Device | | 2018 | Monitor | | [address] | Interrogation | | | | | [place], | (Primary Dx); | | | | | [place] [address] | Presence of | | | | | [phone] | permanent cardiac | | | | [...]
--- OUTSIDE RECORDS SUMMARY | ~2019-11-01 | XMS | Encounter Summary ---
Demographics + + + | Address | [address] | | | [place] [address] | + + + | Home Phone [...] Providers + +------+ + | Care Research Archaeologist Name | Role | Phone | + +------+ + | Kirk French MD | PCP | | + +------+ + Encounter Details +--------+ + + + + | Date | Type | Department | Care Team | Description | +--------+ + + + + | 01/05/ | Anesthesia | [facility] | Jarett Barakat | | | 2019 | Event | MED CTR MP INTRA OP | P, MD [address] | | | | | [address] | [place], [place] | | | | | [place], [place] | [address] | | | | | [address] | [phone] | | | | | [phone] | | | +--------+ + + + [...] explained and consent obtained. Patient transported to [facility], | | | 4 | [...] | 01/05/19950 by | | eral | [id number] catheter system; | Kasie Natarajan RN | [...] | | | | | | [place] [address] | | | | | | [phone] | | | | | | | | +--------+ + + + + | 11/20/ | Implant | Cardiology | Daljit Singletary, | Remote Device | | 2018 | Monitor | | [address] [facility] | Interrogation | | | | | [place] [place], | (Primary Dx); | | | | | [place] [address] | Presence of | | | | | [phone] | permanent cardiac | | | | [...] | | | Vomiting, Starting [facility] 01/05/19 at | | AM PST [...]
--- OUTSIDE RECORDS SUMMARY | ~2019-11-01 | XMS | Encounter Summary ---
Demographics + + + | Address | [address] | | | [place] [address] | + + + | Home Phone [...] Team Providers + +------+ + | Care Cableman Name | Role | Phone | [...] + + | 12/14/ | Telephone | [facility] | Emmanuel Daniel MD | Follow-up, Office | | 2019 | | GASTROENTEROLOGY | [address], [place] | Visit (wants to | | | | [address] [place] | [address] [place] | cancel his office | | | | [address] [place] | [address] | appointment today) | | | | [address] | | | | | | [phone] | | | +--------+ + + + [...] | | | | | | [place] [address] | | | | | | [phone] | | | | | | | | +--------+ + + + + | 11/20/ | Implant | Cardiology | Daljit Singletary, | Remote Device | | 2019 | Monitor | | [address] [facility] | Interrogation | | | | | [place] [place], | (Primary Dx); | | | | | [place] [address] | Presence of | | | | | [phone] | permanent cardiac | | | | [...]
--- OUTSIDE RECORDS SUMMARY | ~2019-11-01 | XMS | Encounter Summary ---
Demographics + + + | Address | [address] | | | [place] [address] | + + + | Home Phone [...] Providers + +------+ + | Care Recreational Facilities Motel Manager Name | Role | Phone | [...] + + | 05/14/ | Office | [facility] | [place], | Coronary artery | | 2013 | Visit | CARDIOLOGY [address] | [place] [address] | disease (Primary | | | | [place], | [place], | Dx); Hypertension; | | | | [place] [address] | [place] [address] | Hyperlipidemia; | | | | [phone] | [phone] | Syncope; Other chest | | | [...] needed for Chest pain. 25 tablet 12 [place]-3 Fatty Acids (SALMON OIL-1000 PO) CAPS, one [...] attenuation cannot completely be ruled out. [facility] 12/25/13, shows noncritical coronary artery disease, mild [...] exercising. He is in class II of [place] 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 There are no [...] to go back in 3 days to [place] for an attempt of ablation under general [...] palpitations.. He is in class II of [place] Heart Ass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 There are no [...] bring in his blood pressure logs from count includes the [facility] 5. Lightheadedness and dizziness/ presyncope: A. [...] made to ensure accuracy; however, inadvertent computerized benefits administrator errors may be pre sent. [...] W | | | | | | [place], | | | | | | [place] [address] | | | | | | [phone] | | | | | | | | +--------+ + + + + | 11/20/ | Implant | Cardiology | Daljit Singletary, | Remote Device | | 2018 | Monitor | | [address] [place] | Interrogation | | | | | [place], | (Primary Dx); | | | | | [place] [address] | Presence of | | | | | [phone] | permanent cardiac | | | | [...] of unspecified type of | | vessel, [place] or graft | + + | Hypertension Unspecified essential hypertension | + + | Hyperlipidemia Other and unspecified hyperlipidemia | + + | Syncope Syncope and collapse | + + | Other chest pain | + + | Chest pain Chest pain, unspecified | + + documented in this encounter
--- OUTSIDE RECORDS SUMMARY | ~2019-11-01 | XMS | Encounter Summary ---
Demographics + + + | Address | [address] | | | [place] [address] | + + + | Home Phone [...] Team Providers + +------+ + | Care Hydrant Setter Name | Role | Phone | [...] | | | | CENTER [address] | [place], [place] | insufficiency | | | | [place], [place] | [address] | | | | | [address] | | | | | | [phone] | | | +--------+ + + + [...] sent through Care Everywhere.PERIPHERAL KENYETTA A, BILATERAL (GREENLANDIC)documented in this encounter Medications at Time [...] + + +---------+ + + | [place]-3 Fatty | CAPS, one capsule by [...] | | | | | | | #[id number], exp 07/2016 | | | | | [...] | | | | | | [place] [address] | | | | | | [phone] | | | | | | | | +--------+ + + + + | 11/20/ | Implant | Cardiology | Daljit Singletary, | Remote Device | | 2018 | Monitor | | MD [address] | Interrogation | | | | | [address] [place], | (Primary Dx); | | | | | [place] [address] | Presence of | | | | | [phone] | permanent cardiac | | | | [...]
--- OUTSIDE RECORDS SUMMARY | ~2019-11-01 | XMS | Encounter Summary ---
Demographics + + + | Address | [address] | | | [place] [address] | + + + | Home Phone [...] + +------+ + | Care Outside Plant Supervisor Name | Role | Phone | + +------+ + PCP | Unavailable | + +------+ + Encounter Details +--------+ + + + + | Date | Type | Department | Care Team | Description | +--------+ + + + + | 02/01/ | [facility] | [facility] | Evan Gandara MD | | | 2008 - | Encounter | MED CTR MED ONC | [address] [facility] | | | | | [address] [place] | [place] | | | 02/06/ | | [place] [address] | [address] | | | 2008 | | [phone] | | | +--------+ + + + [...] | | | | | | [place] [address] | | | | | | [phone] | | | | | | | | +--------+ + + + + | 11/20/ | Implant | Cardiology | Daljit Singletary, | Remote Device | | 2019 | Monitor | | MD [address] | Interrogation | | | | | [address] [place], | (Primary Dx); | | | | | [place] [address] | Presence of | | | | | [phone] | permanent cardiac | | | | [...]
--- OUTSIDE RECORDS SUMMARY | ~2019-11-01 | XMS | Encounter Summary ---
Demographics + + + | Address | [address] | | | [place] [address] | + + + | Home Phone [...] Providers + +------+ + | Care Scale Expert Name | Role | Phone | [...] Provider Unknown | | | | | [place], [place] | [phone] | | | | | [address] | | | | | | [phone] | | | +--------+ + + + [...] + + + +---------+ + + | [place]-3 Fatty | CAPS, one capsule by | [...] | | | | | | [place] [address] | | | | | | [phone] | | | | | | | | +--------+ + + + + | 11/20/ | Implant | Cardiology | Daljit Singletary, | Remote Device | | 2019 | Monitor | | [address] [facility] | Interrogation | | | | | [place], | (Primary Dx); | | | | | [place] [address] | Presence of | | | | | [phone] | permanent cardiac | | | | [...]
--- OUTSIDE RECORDS SUMMARY | ~2019-11-01 | XMS | Encounter Summary ---
Demographics + + + | Address | [address] | | | [place] [address] | + + + | Home Phone [...] Team Providers + +------+ + | Care Contracts Director Name | Role | Phone | + +------+ + | Kirk French MD | PCP | | + +------+ + Encounter Details +--------+---------+ + + + | Date | Type | Department | Care Team | Description | +--------+---------+ + + + | 12/24/ | Surgery | [facility] | Emmanuel Daniel MD | EGD | | 2018 | | MED CTR MP INTRA OP | [address], [place] | | | | | [address] | [address] [place], [place] | | | | | [place], [place] | [address] | | | | | [address] | | | | | | [phone] | | | +--------+---------+ + + + [...] + + + +---------+ + + | [place]-3 Fatty | CAPS, one capsule by | [...] | | | | | | [place] [address] | | | | | | [phone] | | | | | | | | +--------+ + + + + | 11/20/ | Implant | Cardiology | Daljit Singletary, | Remote Device | | 2019 | Monitor | | [address] [facility] | Interrogation | | | | | [place], | (Primary Dx); | | | | | [place] [address] | Presence of | | | | | [phone] | permanent cardiac | | | | [...] + | Performed at: 01 - [place] [address], | REFERENCE LAB | | [place], [place] [id number] Step Down Specialist: William Andrew MD, Phone: | [facility]SH - KINA | | [phone] | | + + + + + + + + | Performing | Address | City/State/Zipcode | Phone Number | | Organization | | | | + + + + + | REFERENCE LAB | [address] | [place] [address] | [phone] | | [facility] - [facility] | [facility] | | | + [...] [address] | [place] | [phone] | | [facility] | | [address] | | | - LABORATORY | | [...] | | Aeromonas, Plesiomonas, | | [facility] | | | | E. [...] [address] | [place] | [phone] | | [facility] | | [address] | | | - LABORATORY | | [...] [address] | [place] | [phone] | | [facility] | | [address] | | | - LABORATORY | | [...] + + | Performed at: 01 - [facility] [address], | REFERENCE LAB | | [place], [place] [id number] Step Down Specialist: William Andrew MD, Phone: | [facility] - KINA | | [phone] | | + + + + + + + + | Performing | Address | City/State/Zipcode | Phone Number | | Organization | | | | + + + + + | REFERENCE LAB | [address] | [place] [address] | [phone] | | [facility] - K[facility] | [facility] | | | + + [...] + | [facility] | [address] | [place] | [phone] | | [facility] | | [address] | | | - LABORATORY | | [...] [address] | [place] | [phone] | | [facility] | | [address] | | | - LABORATORY | | [...] | | dium | | | [facility] | | | Antigen | [...] [address] | [place] | [phone] | | [facility] | | [address] | | | - LABORATORY | | [...] [address] | [place] | [phone] | | [facility] | | [address] | | | - LABORATORY | | [...] [address] | [place] | [phone] | | [facility] | | [address] | | | - LABORATORY | | | | + + + + + EGD (12/24/2017 1:19 PM PST) + + | Specimen | + + | | + + + + -+ | Narrative | Performed At | + + -+ | | [facility] | | GastroenterologyPatient Name: Moe SanchezKane Date: 12/24/2017 | [facility] | | 1:19 PMMRN: [id number] #: [id number] of : | | | 1960Admit Type: AmbulatoryAge: 57Room: [facility] 01Gender: MaleNote | | | Status: FinalizedAttending MD: Emmanuel Daniel , [facility]cedure: | | | Upper GI endoscopyIndications: Diarrhea, Weight | | | lossProviders: Emmanuel Daniel MD, Maria Isabel Morris RN, | | | Kim Hicks, Supervisor Metal Fabricating, Jarett | | | Sapna Barakat MD [...] the anesthesiologist and | | | the implementation technician in the endoscopy suite. Mental Status [...] 1:31:13 PM | | | [facility], [address] [place] [address] | | | [place] [address] | | | - Discharge patient to [...] | | | [facility], [address], [place] | | | [address] | | + + -+ + +---------+ [...] 12/24/2017 | [facility] | | 1:17 PMMRN: [id number] #: [id number] of : | | | 8Admit Type: AmbulatoryAge: 57Room: [facility] 01Gender: MaleNote | | | Status: FinalizedAttending MD: Emmanuel Daniel , [facility]rocedure: | | | ColonoscopyIndications: Clinically significant diarrhea of | | | unexplained originProviders: Emmanuel Daniel MD, Maria Isabel | | | Arturo RN, Kim Hicks, Supervisor Metal Fabricating, | | | Jarett Barakat MD (Anesthesia [...] | | | the anesthesiologist and the implementation technician in the endoscopy suite. | | [...] Scope In: 1:32:55 PMScope Out: 1:48:57 PM [facility] | | | [facility], [address] [place] [address] | | | [phone] | | | - Await pathology results. [...] |Scope Out: 1:48:57 PM | | | [facility], [address] [place] [address] | | | [address] | | + + -+ + +---------+ [...] | colonic mucosa with focal adenomatous change. CLR:[facility]:C2NR | | | GROSS DESCRIPTION: Received [...] | | cm, submitted, all in (D1). ka:CLR:[facility] ADDITIONAL NOTES: | | | Immunohistochemical studies were performed on this case with the | | | appropriate positive controls that react as expected. This test was | | | developed and its performance characteristics determined by [facility] | | | [facility]. It has not been cleared or approved by the U.S. Food | | | and Drug Administration. The FDA has determined that such clearance | | | or approval is not necessary. This test is used for clinical | | | purposes. It should not be regarded as investigational or for | | | research. [facility] is certified under the Clinical | | | Laboratory Improvement Amendments of 1988 (CLIA) as qualified to | | | perform high complexity clinical laboratory testing. This assay | | | has not been validated for specimens that have been decalcified. | | | PERFORMING LABORATORY: Tissue processing and slide preparation were | | | performed by [facility], [address], [facility] | | | [place] [address] (Entry Level Buyer: Evan Frausto M.D. CLIA#: | | | [id number]). Professional interpretation was performed by [facility] | | | [facility], [address], [place] [address] | | | (Entry Level Buyer: Evan Frausto M.D.; CLIA#: [id number]). | | | Diagnostician: Rafael Bales MD [...]
--- OUTSIDE RECORDS SUMMARY | ~2019-11-01 | XMS | Encounter Summary ---
Demographics + + + | Address | [address] | | | [place] [address] | + + + | Home Phone [...] Team Providers + +------+ + | Care Drilling Superintendent Name | Role | Phone | [...] Refill | | 2012 | | [facility] [place] | DO [address] | | | | | [address] | [place] | | | | | [place] | [address] | | | | | [address] | | | | | | [phone] | | | +--------+--------+ + + + [...] W | | | | | | [place], | | | | | | [place] [address] | | | | | | [phone] | | | | | | | | +--------+ + + + + | 11/20/ | Implant | Cardiology | Daljit Singletary, | Remote Device | | 2018 | Monitor | | [address] [facility] | Interrogation | | | | | [place], | (Primary Dx); | | | | | [place] [address] | Presence of | | | | | [phone] | permanent cardiac | | | | [...]
--- OUTSIDE RECORDS SUMMARY | ~2019-11-01 | XMS | Encounter Summary ---
Demographics + + + | Address | [address] | | | [place] [address] | + + + | Home Phone [...] + + + + | 11/05/ | [facility] | [facility] | Naresh Mckeon | | | 2009 | Encounter | MED CTR SLEEP | MD Chaya [address] | | | | | CENTER [address] | [place] | | | | | [place] | [place] [address] | | | | | [address] | [phone] | | | | | [phone] | | | +--------+ + + + [...] | | | | | | [place] [address] | | | | | | [phone] | | | | | | | | +--------+ + + + + | 11/20/ | Implant | Cardiology | Daljit Singletary, | Remote Device | | 2019 | Monitor | | MD Chiquis Oro | Interrogation | | | | | [place], | (Primary Dx); | | | | | [place] [address] | Presence of | | | | | [phone] | permanent cardiac | | | | [...]
--- OUTSIDE RECORDS SUMMARY | ~2019-11-01 | XMS | Encounter Summary ---
Demographics + + + | Address | [address] | | | [place] [address] | + + + | Home Phone [...] Providers + +------+ + | Care First Coat Sander Name | Role | Phone | [...] having issues with | | | | [place], | [place], | high blood pressure) | | | | [place] [address] | [place] [address] | | | | | [phone] | [phone] | | | | | | | [...] | | | | | | [place] [address] | | | | | | [phone] | | | | | | | | +--------+ + + + + | 11/20/ | Implant | Cardiology | Daljit Singletary, | Remote Device | | 2019 | Monitor | | MD Chiquis Oro | Interrogation | | | | | [place], | (Primary Dx); | | | | | [place] [address] | Presence of | | | | | [phone] | permanent cardiac | | | | [...]
--- OUTSIDE RECORDS SUMMARY | ~2019-11-01 | XMS | Encounter Summary ---
Demographics + + + | Address | [address] | | | [place] [address] | + + + | Home Phone [...] Providers + +------+ + | Care Telephone Operators Supervisor Name | Role | Phone | [...] [place], | | | | | | [place] [address] | | | | | | [phone] | | | +--------+ + + + [...] | | | | | | [place] [address] | | | | | | [phone] | | | | | | | | +--------+ + + + + | 11/20/ | Implant | Cardiology | Daljit Singletary, | Remote Device | | 2019 | Monitor | | [facility] | Interrogation | | | | | [place], | (Primary Dx); | | | | | [place] [address] | Presence of | | | | | [phone] | permanent cardiac | | | | [...]
--- OUTSIDE RECORDS SUMMARY | ~2019-11-01 | XMS | Encounter Summary ---
Demographics + + + | Address | [address] | | | [place] [address] | + + + | Home Phone [...] +------+ + | Care Truck Body Builder Name | Role | Phone | [...] 2019 | | GASTROENTEROLOGY | [address], [place] | | | | | [address] [place] | [address] [place], [place] | | | | | [address] [place], [place] | [address] | | | | | [address] | | | | | | [phone] | | | +--------+ + + + [...] | | | | | | [place] [address] | | | | | | [phone] | | | | | | | | +--------+ + + + + | 11/20/ | Implant | Cardiology | Daljit Singletary, | Remote Device | | 2018 | Monitor | | [address] | Interrogation | | | | | [place], | (Primary Dx); | | | | | [place] [address] | Presence of | | | | | [phone] | permanent cardiac | | | | [...]
--- OUTSIDE RECORDS SUMMARY | ~2019-11-01 | XMS | Encounter Summary ---
Demographics + + + | Address | [address] [place] [address] | | | [place] [address] | + + + | Home Phone | | + + + | Preferred Language | Unknown | + + + | Marital Status | | + + + | Congregation Affiliation | Unknown | + + + [...] [place] | | | | | [address] | | + + + + + Care Team Providers + +------+ + | Care Poultry Picker Name | Role | Phone | [...]
--- OUTSIDE RECORDS SUMMARY | ~2019-11-01 | XMS | Encounter Summary ---
Demographics + + + | Address | [address] | | | [place] [address] | + + + | Home Phone [...] Providers + +------+ + | Care College Physics Instructor Name | Role | Phone | [...] loss | [address] | [address], | | | | | Anxiety | [address] [place] | [place] [address] | | | | | disorder, | 101 | [place], | | | | | unspecified | [place], [place] | [place] [address] | | | | | Chronic | [address] | Phone: | | | | | pain | Phone: | [phone] | | | | | syndrome | [phone] | Fax: | | | | | Procedures | Fax: | [phone] | | | | | office visit | [phone] | | +--------+--------+ + + + + Encounter Details +--------+---------+ + + + | Date | Type | Department | Care Team | Description | +--------+---------+ + + + | 12/26/ | Office | [facility] | Emmanuel Daniel MD | Functional diarrhea | | 2019 | Visit | GASTROENTEROLOGY | [address], [place] | (Primary Dx); | | | | [address] [place] | [address] [place], [place] | Gastrointestinal | | | | [address] [place], [place] | [address] | hemorrhage | | | | [address] | | associated with | | | | [phone] | | anorectal source; | | | [...] | | | | | | [place] [address] | | | | | | [phone] | | | | | | | | +--------+ + + + + | 11/20/ | Implant | Cardiology | Daljit Singletary, | Remote Device | | 2019 | Monitor | | [facility] | Interrogation | | | | | [address] [place], | (Primary Dx); | | | | | [place] [address] | Presence of | | | | | [phone] | permanent cardiac | | | | [...]
--- OUTSIDE RECORDS SUMMARY | ~2019-11-01 | XMS | Encounter Summary ---
Demographics + + + | Address | [address] | | | [place] [address] | + + + | Home Phone [...] Providers + +------+ + | Care Plaster Mold Maker Name | Role | Phone | [...] | | | | [place] | [address] | | | | | [address] | | | | | | [phone] | | | +--------+ + + + [...] W | | | | | | [place], | | | | | | [place] [address] | | | | | | [phone] | | | | | | | | +--------+ + + + + | 11/20/ | Implant | Cardiology | Daljit Singletary, | Remote Device | | 2018 | Monitor | | MD Chiquis Oro | Interrogation | | | | | [place], | (Primary Dx); | | | | | [place] [address] | Presence of | | | | | [phone] | permanent cardiac | | | | [...]
--- OUTSIDE RECORDS SUMMARY | ~2019-11-01 | XMS | Encounter Summary ---
Demographics + + + | Address | [address] | | | [place] [address] | + + + | Home Phone [...] + +------+ + | Care House Carpenter Name | Role | Phone | [...] + + | 06/18/ | Emergency | [facility] | Dom Graham, | Cervical pain (neck) | | 2013 | | MED CTR EMERGENCY | MD [address] | (Primary Dx); | | | | CENTER [address] | [place] | Paresthesia and pain | | | | [place], [place] | [address] | of both upper | | | | [address] | | extremities | | | | [phone] | | | +--------+ + + + [...] cannot be sent through Care Everywhere.PARAESTHESIAS ( P[place]UA [place] GUINEAN)NECK SPRAIN/STRAIN (PAPUA [place] GUINEAN)documented in this encounter Medications at Time of [...] + + + +---------+ + + | [place]-3 Fatty | CAPS, one capsule by | [...] | | | | | | [place] [address] | | | | | | [phone] | | | | | | | | +--------+ + + + + | 11/20/ | Implant | Cardiology | Daljit Singletary, | Remote Device | | 2018 | Monitor | | MD Chiquis Oro | Interrogation | | | | | [place], | (Primary Dx); | | | | | [place] [address] | Presence of | | | | | [phone] | permanent cardiac | | | | [...] + | MISCELLANEOUS LAB | | | [phone] | + +---------+ + + | MISCELANIOUS LAB | | | [phone] | + +---------+ + + documented in this encounter Visit Diagnoses + + | Diagnosis | + + | Cervical pain (neck) - Primary Cervicalgia | + + | Paresthesia and pain of both upper extremities Disturbance of skin sensation | + + documented in this encounter
--- OUTSIDE RECORDS SUMMARY | ~2019-11-01 | XMS | Encounter Summary ---
Demographics + + + | Address | [address] | | | [place] [address] | + + + | Home Phone [...] Team Providers + +------+ + | Care Pearl Technician Name | Role | Phone | [...] 2019 | | GASTROENTEROLOGY | [address], [place] | | | | | [address] [place] | [address] [place], [place] | | | | | [address] [place], [place] | [address] | | | | | [address] | | | | | | [phone] | | | +--------+ + + + [...] | | | | | | [place] [address] | | | | | | [phone] | | | | | | | | +--------+ + + + + | 11/20/ | Implant | Cardiology | Daljit Singletary, | Remote Device | | 2019 | Monitor | | MD [address] [place] | Interrogation | | | | | [place], | (Primary Dx); | | | | | [place] [address] | Presence of | | | | | [phone] | permanent cardiac | | | | [...]
--- OUTSIDE RECORDS SUMMARY | ~2019-11-01 | XMS | Encounter Summary ---
Demographics + + + | Address | [address] | | | [place] [address] | + + + | Home Phone [...] Providers + +------+ + | Care Roadway Engineer Name | Role | Phone | [...] | CARDIOLOGY [address] | MD [address] | | | | | [place], | [place], | | | | | [place] [address] | [place] [address] | | | | | [phone] | [phone] | | | | | | | [...] | | | | | | [place] [address] | | | | | | [phone] | | | | | | | | +--------+ + + + + | 11/20/ | Implant | Cardiology | Daljit Singletary, | Remote Device | | 2019 | Monitor | | MD [address] [place] | Interrogation | | | | | [address] [place], | (Primary Dx); | | | | | [place] [address] | Presence of | | | | | [phone] | permanent cardiac | | | | [...]
--- OUTSIDE RECORDS SUMMARY | ~2019-11-01 | XMS | Encounter Summary ---
Demographics + + + | Address | [address] | | | [place] [address] | + + + | Home Phone [...] Providers + +------+ + | Care Admissions Manager Rn Name | Role | Phone | [...] + + | 06/04/ | Hospital | [facility] | Sariah, | Cervical spinal | | 2016 | Encounter | MED CTR XRAY [address] | [place], [address] | stenosis | | | | [place] | [id number] | | | | | [place] [address] | [place] [address] | | | | | [phone] | [phone] | | | | | | | [...] + + + +---------+ + + | [place]-3 Fatty | CAPS, one capsule by | [...] | | | | | | [place] [address] | | | | | | [phone] | | | | | | | | +--------+ + + + + | 11/20/ | Implant | Cardiology | Daljit Singletary, | Remote Device | | 2019 | Monitor | | MD [facility] | Interrogation | | | | | [place], | (Primary Dx); | | | | | [place] [address] | Presence of | | | | | [phone] | permanent cardiac | | | | [...]
--- OUTSIDE RECORDS SUMMARY | ~2019-11-01 | XMS | Encounter Summary ---
Demographics + + + | Address | [address] | | | [place] [address] | + + + | Home Phone [...] Team Providers + +------+ + | Care Lightout Examiner Name | Role | Phone | [...] + | 06/02/ | Telephone | [facility] | Daljit Singletary, | Other (symptoms) | | 2019 | | CARDIOLOGY [address] | MD [address] [place] | | | | | [place], | [place], | | | | | [place] [address] | [place] [address] | | | | | [phone] | | | | | | | [...] | | | | | | [place], | | | | | | [place] [address] | | | | | | [phone] | | | | | | | | +--------+ + + + + | 11/20/ | Implant | Cardiology | Daljit Singletary, | Remote Device | | 2019 | Monitor | | MD Chiquis Oro | Interrogation | | | | | [place], | (Primary Dx); | | | | | [place] [address] | Presence of | | | | | [phone] | permanent cardiac | | | | [...]
--- OUTSIDE RECORDS SUMMARY | ~2019-11-01 | XMS | Encounter Summary ---
Demographics + + + | Address | [address] | | | [place] [address] | + + + | Home Phone [...] Providers + +------+ + | Care Content Publisher Name | Role | Phone | + +------+ + PCP | Unavailable | + +------+ + Encounter Details +--------+ + + + + | Date | Type | Department | Care Team | Description | +--------+ + + + + | 01/21/ | Emergency | [facility] | Kirill Dominique | Unspecified Chest | | 2009 | | MEDICAL CENTER | MD Jon[address] | Pain | | | | EMERGENCY CENTER | [address] [place] | | | | | [address] | [address] | | | | | [place] | [phone] | | | | | [address] | | | | | | [phone] | | | +--------+ + + + [...] W | | | | | | [place], | | | | | | [place] [address] | | | | | | [phone] | | | | | | | | +--------+ + + + + | 11/20/ | Implant | Cardiology | Daljit Singletary, | Remote Device | | 2019 | Monitor | | [address] [place] | Interrogation | | | | | [place], | (Primary Dx); | | | | | [place] [address] | Presence of | | | | | [phone] | permanent cardiac | | | | [...]
--- OUTSIDE RECORDS SUMMARY | ~2019-11-01 | XMS | Encounter Summary ---
Demographics + + + | Address | [address] | | | [place] [address] | + + + | Home Phone [...] Team Providers + +------+ + | Care Cytogenetics Laboratory Manager Name | Role | Phone | + +------+ + PCP | Unavailable | + +------+ + Encounter Details +--------+ + + + + | Date | Type | Department | Care Team | Description | +--------+ + + + + | 10/29/ | Hospital | [facility] | Pia Akhtar | | | 2003 | Encounter | CONVERSION DEP [address] | MD [address] | | | | | [address] | [address] | | | | | [place] | [place] [address] | | | | | [address] | [phone] | | | | | [phone] | | | +--------+ + + + [...] | | | | | | [place] [address] | | | | | | [phone] | | | | | | | | +--------+ + + + + | 11/20/ | Implant | Cardiology | Daljit Singletary, | Remote Device | | 2019 | Monitor | | MD Chiquis Oro | Interrogation | | | | | [address] [place], | (Primary Dx); | | | | | [place] [address] | Presence of | | | | | [phone] | permanent cardiac | | | | [...]
--- OUTSIDE RECORDS SUMMARY | ~2019-11-01 | XMS | Encounter Summary ---
Demographics + + + | Address | [address] | | | [place] [address] | + + + | Home Phone [...] + +------+ + | Care Health Information Tech Name | Role | Phone | [...] | 07/07/ | Telephone | [facility] [place] | Daljit Singletary, | Appointment | | 2012 | | CARDIOLOGY [address] | MD [address] [place] | | | | | [place], | [place], | | | | | [place] [address] | [place] [address] | | | | | [phone] | | | | | | | [...] | | | | | | [place] [address] | | | | | | [phone] | | | | | | | | +--------+ + + + + | 11/20/ | Implant | Cardiology | Daljit Singletary, | Remote Device | | 2018 | Monitor | | [facility] | Interrogation | | | | | [place], | (Primary Dx); | | | | | [place] [address] | Presence of | | | | | [phone] | permanent cardiac | | | | [...]
--- OUTSIDE RECORDS SUMMARY | ~2019-11-01 | XMS | Encounter Summary ---
Demographics + + + | Address | [address] | | | [place] [address] | + + + | Home Phone [...] Providers + +------+ + | Care Supervisor Wood Room Name | Role | Phone | [...] | Aneurysmal | [place], | [address] | | | | | dilatation | PARISA Solis | [place], | | | | | (HCC) | [address] | [place] | | | | | Procedures | [place] | [address] | | | | | ECHO | [place], | Phone: | | | | | Complete | [place] | [phone] | | | | | | [address] | Fax: | | | | | | Phone: | [phone] | | | | | | [phone] | | | | | | | Fax: | | | | | | | [phone] | | +--------+--------+ + + + + Encounter Details +--------+ + + + + | Date | Type | Department | Care Team | Description | +--------+ + + + + | 11/16/ | Orders Only | [facility] [place] | [place], | Aneurysmal | | 2017 | | CARDIOLOGY [address] | PARISA Solis [address] | dilatation (HCC) | | | | [place], | [place], | (Primary Dx) | | | | [place] [address] | [place] [address] | | | | | [phone] | [phone] | | | | | | | [...] W | | | | | | [place], | | | | | | [place] [address] | | | | | | [phone] | | | | | | | | +--------+ + + + + | 11/20/ | Implant | Cardiology | Sdyni Singletary, | Remote Device | | 2018 | Monitor | | [address] | Interrogation | | | | | [place], | (Primary Dx); | | | | | [place] [address] | Presence of | | | | | [phone] | permanent cardiac | | | | [...] Room Number SARAH Patient | | | [id number] Date of Study 11/16/2017 Number | | | Visit Number [id number] | | | Referring Physician GURJIT TROY Number | | | ELIZABETHANGELIA SOLIS Date | | | of 1960 Director Financial Analysis ROMAINE | | | MARISSA TIPTON Age 57 year(s) Interpreting | | | GURJIT TROY | | | Concrete Building Assembler SYDNI SINGLETARY, | | | | | | Gender Male Nurse | | | Stress Cattle Care Worker Procedure Type of | | | [...] | | | EF | | | Jcwehnlww35% Left Ventricle Diastolic Dimension: 5.12 cm | [...] Volume: 46.33 ml | | | EF Agkaolbly45% | | | | | | Left [...] BARRY Room Number SARAH | | Patient [id number] Date of Study 11/16/2017 Number Visit Number | | [id number] Referring Physician GURJIT TROY | | Number NORMA MCLAUGHLINN Date of | | 1960 Director Financial Analysis ROMAINE TIPTON RDCS Age 57 year(s) | | Interpreting GURJIT TROY Concrete Building Assembler | | SYDNI SINGLETARY MD | | [...] LA Volume: 46.33 ml | | EF Cunuoxgoo27% Left Ventricle Diastolic Dimension: 5.12 cm Systolic [...] LA Volume: 46.33 ml | | EF Xmzflqwse39% | | | | Left Ventricle | [...]
--- OUTSIDE RECORDS SUMMARY | ~2019-11-01 | XMS | Encounter Summary ---
Demographics + + + | Address | [address] | | | [place] [address] | + + + | Home Phone [...] Providers + +------+ + | Care Bean Roaster Name | Role | Phone | + [...] | Emmanuel E, MD | [address] | | | | | unspecified | [address] | [place], | | | | | type | [place], [place] | [place] | | | | | Abdominal | [address] [place] | [address] | | | | | cramping | [place], [place] | Phone: | | | | | Generalized | [address] | [phone] | | | | | abdominal | Phone: | Fax: | | | | | pain | [phone] | [phone] | | | | | Procedures | Fax: | | | | | | CT Abdomen | [phone] | | | | | | Pelvis [...] GASTROENTEROLOGY | [address], [place] | (stomach cramps and | | | | [address] [place] | 210 [place], [place] | liquid stool) | | | | [address] [place], [place] | [address] | | | | | [address] | | | | | | [phone] | | | +--------+ + + + [...] | | | | | | [place] [address] | | | | | | [phone] | | | | | | | | +--------+ + + + + | 12/30/ | Implant | Cardiology | Daljit Singletary, | Remote Device | | 2019 | Monitor | | [facility] | Interrogation | | | | | [place], | (Primary Dx); | | | | | [place] [address] | Presence of | | | | | [phone] | permanent cardiac | | | | [...]
--- OUTSIDE RECORDS SUMMARY | ~2019-11-01 | XMS | Encounter Summary ---
Demographics + + + | Address | [address] | | | [place] [address] | + + + | Home Phone [...] Providers + +------+ + | Care Electric Fan Assembler Name | Role | Phone | [...] + | 11/02/ | Telephone | [facility] | Daljit Singletary, | Other | | 2015 | | CARDIOLOGY [address] | MD [address] [place] | | | | | [place], | [place], | | | | | [place] [address] | [place] [address] | | | | | [phone] | | | | | | | [...] | | | | | | [place], | | | | | | [place] [address] | | | | | | [phone] | | | | | | | | +--------+ + + + + | 11/20/ | Implant | Cardiology | Daljit Singletary, | Remote Device | | 2018 | Monitor | | MD Chiquis [address]ro | Interrogation | | | | | [place], | (Primary Dx); | | | | | [place] [address] | Presence of | | | | | [phone] | permanent cardiac | | | | [...]
--- OUTSIDE RECORDS SUMMARY | ~2019-11-01 | XMS | Encounter Summary ---
Demographics + + + | Address | [address] | | | [place] [address] | + + + | Home Phone [...] Providers + +------+ + | Care Men'S Custom Hair Piece Consultant Name | Role | Phone | [...] (Primary Dx); Chest | | | | [place], | [place], | pain; Coronary | | | | [place] [address] | [place] [address] | artery disease; | | | | [phone] | [phone] | Hyperlipidemia; | | | | | [...] last week to the emergency room at [facility] with a baljit st pain [...] needed for Chest pain. 25 tablet 12 [place]-3 Fatty Acids (SALMON OIL-1000 PO) CAPS, [...] was seen on the emergency room at [place] on 01/26/2014, he was ruled out A [...] pain. He is in class II of [place] Heart Ass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 There are no [...] go back in 3 days to [place] for an attempt of ablation under general [...] symptoms. He is in class II of [place] Heart Ass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 There are no [...] made to ensure accuracy; however, inadvertent computerized intelligence officer errors may be pre sent. Electronically [...] [place], | | | | | | [place] [address] | | | | | | [phone] | | | | | | | | +--------+ + + + + | 11/20/ | Implant | Cardiology | Daljit Singletary, | Remote Device | | 2018 | Monitor | | [address] [facility] | Interrogation | | | | | [place], | (Primary Dx); | | | | | [place] [address] | Presence of | | | | | [phone] | permanent cardiac | | | | [...] of unspecified type of vessel, | | takotna or graft | + + | Hyperlipidemia Other and unspecified hyperlipidemia | + + | Symptomatic PVCs Other premature beats | + + | Hypertension Unspecified essential hypertension | + + documented in this encounter
--- OUTSIDE RECORDS SUMMARY | ~2019-11-01 | XMS | Encounter Summary ---
Demographics + + + | Address | [address] | | | [place] [address] | + + + | Home Phone [...] Team Providers + +------+ + | Care Checkerer Hand Name | Role | Phone | [...] | ER FUP | [address] | [address] | | | | | Procedures | [place], | [place], | | | | | [place] | [place] [address] | [place] [address] | | | | | | Phone: | Phone: | | | | | | [phone] | [phone] | | | | | | Fax: | Fax: | | | | | | [phone] | [phone] | +--------+--------+ + + + + Encounter Details +--------+---------+ + + + | Date | Type | Department | Care Team | Description | +--------+---------+ + + + | 02/11/ | Office | [facility] [place] | [place], | Coronary artery | | 2016 | Visit | CARDIOLOGY [address] | Janeen EDGE STITCHER [address] | disease involving | | | | [place], | [place], | [place] coronary | | | | [place] [address] | [place] [address] | artery of [place] | | | | [phone] | [phone] | heart without angina | | | [...] of non-critical coronary artery d isease involving [place] coronary artery of [place] heart without angina pectoris, essential h ypertension, [...] has been doing well otherwise than the [facility] iety. MEDICAL, SURGICAL, AND PERSONAL HISTORY [...] Preventative health care Coronary artery disease involving [place] coronary artery of [place] heart without angina pectoris Cannabis abuse, daily [...] by mouth every evening 90 tablet 3 [facility] Natural Products [...] 3RD DOSE, CALL 911 100 tablet 3 [place]-3 Fatty Acids (SALMON OIL-1000 PO) CAPS, one [...] was found Confirmed by ANGELA MARADIAGA MD ([id number]) on 01/25/2017 6:45:26 AM LAB RESULTS reviewed [...] PLTEX 162 11/05/2016 I reviewed records [facility] [...] is in class I of t he [place] Heart Ass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 On physical examination there are no signs of fluid overload. 2. Non-critical Coronary artery disease involving [place] coronary a rtery of [place] heart without angina pectoris: A. Normal exercise [...] this chart may have been created with [employer] voice recognition software. Occasi onal wrong-word or [...] | | | | | | [place] [address] | | | | | | [phone] | | | | | | | | +--------+ + + + + | 11/20/ | Implant | Cardiology | Daljit Singletary, | Remote Device | | 2019 | Monitor | | [facility] | Interrogation | | | | | [place], | (Primary Dx); | | | | | [place] [address] | Presence of | | | | | [phone] | permanent cardiac | | | | [...] Coronary artery disease involving [place] coronary artery of [place] heart without | | angina pectoris - Primary | + + | Essential hypertension with goal blood pressure less than 130/80 | + + | Hyperlipidemia, mixed Mixed hyperlipidemia | + + documented in this encounter
--- OUTSIDE RECORDS SUMMARY | ~2019-11-01 | XMS | Encounter Summary ---
Demographics + + + | Address | [address] | | | [place] [address] | + + + | Home Phone [...] Team Providers + +------+ + | Care Apparatus Lineman Name | Role | Phone | + +------+ + PCP | Unavailable | + +------+ + Encounter Details +--------+ + + + + | Date | Type | Department | Care Team | Description | +--------+ + + + + | 04/22/ | Hospital | [facility] | | | | 2011 | Encounter | MED CTR XRAY [address] | | | | | | [place] | | | | | | [place] [address] | | | | | | [phone] | | | +--------+ + + + [...] | | | | | | [place] [address] | | | | | | [phone] | | | | | | | | +--------+ + + + + | 11/20/ | Implant | Cardiology | aDljit Singletary, | Remote Device | | 2018 | Monitor | | MD Chiquis Oro | Interrogation | | | | | [facility] [place], | (Primary Dx); | | | | | [place] [address] | Presence of | | | | | [phone] | permanent cardiac | | | | [...] Performed At | + + + | [facility] Diagnostic Imaging Department | [facility] | | [address] | [facility] | | CT MYELOGRAM LUMBAR SPINE, [...] Transcribed Date/Time: | | | 04/23/2012 11:06 Clinical Trial Coordinator: <Electronically Signed | | | by Jama Solis MD> 04/24/12 0730 | | + + + + + | Procedure Note | + + | Kevin, Rad Conversion - 12/29/2013 5:27 PM [facility] | | Diagnostic Imaging Department [address] [place] [address] | | CT MYELOGRAM LUMBAR SPINE, 04/22/2012 [...] <Electronically Signed by Jama Solis MD> 04/24/12 4530 | | | |L3-4: Minimal broad-based disk [...] 10:54 | |Transcribed Date/Time: 04/23/2012 11:06 | |Clinical Trial Coordinator: | |<Electronically Signed by Jama Solis MD> 04/24/12 8830 | + + + +---------+ + + [...] Performed At | + + + | [facility] Diagnostic Imaging Department | [facility] | | [address] | [facility] | | THORACIC CT MYELOGRAM | [...] Transcribed Date/Time: 04/22/2012 17:32 | | | Clinical Trial Coordinator: <Electronically Signed by Jama Mason | | | MD Will> 04/23/12 1039 | | + + + + + | Procedure Note | + + | Kalpesh Brown Conversion - 12/29/2013 5:27 PM [facility] | | Diagnostic Imaging Department [address] [place] [address] | | THORACIC CT MYELOGRAM CLINICAL HISTORY: [...] 16:56 | |Transcribed Date/Time: 04/22/2012 17:32 | |Clinical Trial Coordinator: | |<Electronically Signed by Jama Solis MD> [...] Performed At | + + + | [facility] Diagnostic Imaging Department | [facility] | | [address] | [facility] | | CT MYELOGRAM CERVICAL SPINE [...] | | 09/02/2009, [facility]. FINDINGS: Firm bony ankylosis | | | [...] Transcribed Date/Time: | | | 04/22/2012 17:25 Clinical Trial Coordinator: <Electronically Signed | | | by Jama Solis MD> 04/23/12 1039 | | + + + + + | Procedure Note | + + | Kalpesh Brown Conversion - 12/29/2013 5:27 PM [facility] | | Diagnostic Imaging Department | | [address] | | | | | [...] study from 09/02/2009, [facility]. | | | | FINDINGS: Firm bony [...] | Transcribed Date/Time: 04/22/2012 17:25 | | Clinical Trial Coordinator: | | <Electronically Signed by Jama Solis [...] Performed At | + + + | [facility] Diagnostic Imaging Department | [facility] | | [address] | [facility] | | LUMBAR MYELOGRAM INJECTION FOR [...] Transcribed Date/Time: 04/22/2012 16:36 | | | Clinical Trial Coordinator: <Electronically Signed by Jama Mason | | | MD Will> 04/23/12 1039 | | + + + + + | Procedure Note | + + | Kalpesh Brown Conversion - 12/29/2013 5:27 PM [facility] | | Diagnostic Imaging Department [address] [place] [address] | | LUMBAR MYELOGRAM INJECTION FOR CT [...] 15:51 | |Transcribed Date/Time: 04/22/2012 16:36 | |Clinical Trial Coordinator: | |<Electronically Signed by Jama Solis MD> [...]
--- OUTSIDE RECORDS SUMMARY | ~2019-11-01 | XMS | Encounter Summary ---
Demographics + + + | Address | [address] | | | [place] [address] | + + + | Home Phone [...] + | 06/27/ | Telephone | [facility] | Michael Amanda, | ED Follow-up (s/p | | 2014 | | [facility] [place] | DO [address] | [facility]) | | | | [address] | [place] | | | | | [place] | [address] | | | | | [address] | | | | | | [phone] | | | +--------+ + + + [...] | | | | | | [place] [address] | | | | | | [phone] | | | | | | | | +--------+ + + + + | 11/20/ | Implant | Cardiology | Daljit Singletary, | Remote Device | | 2018 | Monitor | | MD Sim [address] | Interrogation | | | | | [place], | (Primary Dx); | | | | | [place] [address] | Presence of | | | | | [phone] | permanent cardiac | | | | [...]
--- OUTSIDE RECORDS SUMMARY | ~2019-11-01 | XMS | Encounter Summary ---
Demographics + + + | Address | [address] | | | [place] [address] | + + + | Home Phone [...] Providers + +------+ + | Care Pipe Cleaner Name | Role | Phone | [...] | | | | aortic | Janeen, LAND INSPECTOR | [place], | | | | | aneurysm | [address] | [place] [address] | | | | | (HCC) | [place] | Phone: | | | | | Abdominal | [place], | [phone] | | | | | aortic | [place] | Fax: | | | | | aneurysm | [address] | [phone] | | | | | (AAA) | Phone: | | | | | | without | [phone] | | | | | | rupture | Fax: | | | | | | (HCC) | [phone] | | | | | | Procedures [...] | | unspecified | MD Martell | [address] [place] [address] | | | | | type ER | [address] | [address] | | | | | FUP | [place] | [place], | | | | | Procedures | [place], [place] | [place] [address] | | | | | FUP - SUW & | [address] | Phone: | | | | | MISHA PT, LAST | Phone: | [phone] | | | | | SEEN | [phone] | Fax: | | | | | 08-24-18 | Fax: | [phone] | | | | | | [phone] | | +--------+ + + + + + Encounter Details +--------+---------+ + + + | Date | Type | Department | Care Team | Description | +--------+---------+ + + + | 01/11/ | Office | [facility] | Silvia, | Coronary artery | | 2019 | Visit | CARDIOLOGY [address] | PARISA [place] [address] | disease involving | | | | [place], | [place], | douglas coronary | | | | [place] [address] | [place] [address] | artery of douglas | | | | [phone] | [phone] | heart without angina | | | [...] encounter Patient Instructions Patient Instructions Christine Rodriguez, Automobile Travel Club Counselor - 01/11/2019 12:45 PM PST 1. You [...] Check-in time: 1. Check in at the [facility]. 2. Do not [...] procedure. 6. Make sure you have a test driver to take you home. Your test driver will also need to sign you [...] hospital line at and ask for nursing field pipelines supervisor t o let them know you are cancelling . Blood test: Non-fasting Date Due: same day as CTA Where to go for labs: [facility] [address] [facility] CTA of Chest and Abdomen: Date: [...] 3RD DOSE, CALL 911 100 tablet 3 [place]-3 Fatty Acids (SALMON OIL-1000 PO) CAPS, one capsule by mouth daily twice daily ondansetron (ZOFRAN ODT) 4 mg disintegrating tablet Take 4 mg by mouth. ONE TOUCH DELICA LANCETS [facility] Check glucose as [...] was found Confirmed by ANGELA MARADIAGA MD ([id number]) on 01/03/2019 8:10:39 PM LAB RESULTS reviewed [...] HPI. RESULTS- I reviewed reports from [facility]: Xr Chest Ap Portable Result Date: 01/02/2019 [...] ASSESSMENT: 1. Non-critical Coronary artery disease involving douglas coronary artery of douglas heart wi out angina pectoris: A. Normal [...] Symptoms with moderate exertion of t he [place] 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 Heart failure stage [...] Health Administration on 01/30/2013. Patient had spontaneous PVC's from [...] go back in 3 days t o [place] for an attempt of ablation under general [...] he has any further problems Christine Clemente Automobile Travel Club Counselor am acting as a scribe on behalf of, and in the pres ence of PARISA Lomas. - Reji Newman 01/11/2019 13:46 IJaneen ARNP, personally performed the services described in this documentati on, as scribed in my presence and it is both accurate and complete. -PARISA Lomas 01/11/2019 Portions of this chart may have been created with [email or web address] voice recognition software. Occasi onal wrong-word or [...] | | | | | | [place] [address] | | | | | | [phone] | | | | | | | | +--------+ + + + + | 11/20/ | Implant | Cardiology | Daljit Singletary, | Remote Device | 2018 | Monitor | | [address] [facility] | Interrogation | | | | | [place], | (Primary Dx); | | | | | [place] [address] | Presence of | | | | | [phone] | permanent cardiac | | | | [...] douglas heart without | | angina pectoris - [...]
--- OUTSIDE RECORDS SUMMARY | ~2019-11-01 | XMS | Encounter Summary ---
Demographics + + + | Address | [address] | | | [place] [address] | + + + | Home Phone [...] Team Providers + +------+ + | Care Hub Borer Name | Role | Phone | + +------+ + PCP | Unavailable | + +------+ + Encounter Details +--------+ + + + + | Date | Type | Department | Care Team | Description | +--------+ + + + + | 04/28/ | [facility] | [facility] | Jonathan, | | | 2008 | Encounter | MED CTR EMERGENCY | Martell Cr MD [address] | | | | | CENTER [address] | [place] | | | | | [place] | [place] [address] | | | | | [address] | [phone] | | | | | [phone] | | | +--------+ + + + [...] W | | | | | | [place], | | | | | | [place] [address] | | | | | | [phone] | | | | | | | | +--------+ + + + + | 11/20/ | Implant | Cardiology | Daljit Singletary, | Remote Device | | 2019 | Monitor | | MD Chiquis Oro | Interrogation | | | | | [place], | (Primary Dx); | | | | | [place] [address] | Presence of | | | | | [phone] | permanent cardiac | | | | [...]
--- OUTSIDE RECORDS SUMMARY | ~2019-11-01 | XMS | Encounter Summary ---
Demographics + + + | Address | [address] | | | [place] [address] | + + + | Home Phone [...] Providers + +------+ + | Care Nascar Pit Crew Person Name | Role | Phone | + +------+ + | Michael Amanda DO | PCP | | + +------+ + Encounter Details +--------+ + + + + | Date | Type | Department | Care Team | Description | +--------+ + + + + | 04/03/ | Hospital | [facility] | Jay Gambino MD | | | 2012 - | Encounter | HEART MED CTR | [address] | | | | | CARDIAC TRANSPLANT | [address] [place] | | | 04/04/ | | [address] | [place] [address] | | | 2012 | | [place] | [phone] | | | | | [address] | | | | | | [phone] | | | +--------+ + + + [...] 1960 ADMISSION DATE: 04/03/2013 DISCHARGE DATE: 04/04/2013 [id number] / [id number] ADMISSION DIAGNOSES: 1. Symptomatic premature ventricular contractions [...] study and ablati on. MOE GAY ADM:04/03/13 [id number] 04/04/13 DIS [place] DISCHARGE SUMMARY [id number] [facility] PARISA Hughes [facility] MD Meena Pleitez THIS REPORT IS CONFIDENTIAL AND NOT TO BE RELEASED WITHOUT PROPER AUTHORIZATION. [facility] Mr. Gay was taken to the [...] 180 mg once daily. MOE GAY ADM:04/03/13 [id number] 04/04/13 DIS [place] DISCHARGE SUMMARY [id number] [facility] PARISA Hughes [facility] MD Meena Pleitez THIS REPORT IS CONFIDENTIAL AND NOT TO BE RELEASED WITHOUT PROPER AUTHORIZATION. [facility] 5. Docusate sodium 2 tablets once daily. 6. Marinol 10 mg twice daily. 7. Metoprolol succinate 200 mg once daily. 8. Oxycodone 10 mg 10 mg oral as needed. 9. Oxycodone 30 mg oral twice daily. 10. Pravastatin 40 mg at bedtime. 11. Promethazine 25 mg as needed. 12. Ranitidine 1 to 2 tablets once daily. 13. [place] oil 2 tablets twice daily. 14. Valacyclovir [...] time. PARISA Hughes MD A P RICHIE/med #[id number] cc: MD Dona Pleitez ARNP Suwong Wongsuwan, MD Electronically Signed 04/12/13 1400 PARISA Hughes Electronically Signed 05/22/13 1245 Jay Gambino MD MOE GAY ADM:04/03/13 [id number] 04/04/13 DIS [place] DISCHARGE SUMMARY [id number] [facility] PARISA Hughes ES B [facility] Jay Gambino MD R THIS REPORT IS CONFIDENTIAL AND NOT TO BE RELEASED WITHOUT PROPER AUTHORIZATION.Electronica lly signed by Jael Brown at 05/22/2013 1:25 PM Dona Grossman ARNP - 04/04/2013 9:05 AM PDT PATIENT NAME: MOE GAY Sex/Age: M / 53Y : 1960 ADMISSION DATE: 04/03/2013 DISCHARGE DATE: 04/04/2013 [id number] / [id number] ADMISSION DIAGNOSES: 1. Symptomatic premature ventricular contractions [...] and ablati on. MOE GAY Jaimee ADM:04/03/13 [id number] 04/04/13 DIS [place] DISCHARGE SUMMARY [id number] [facility] PARISA Hughes [facility] MD Meena Pleitez THIS REPORT IS CONFIDENTIAL AND NOT TO BE RELEASED WITHOUT PROPER AUTHORIZATION. [facility] Mr. Gay was taken to the [...] 180 mg once daily. MOE GAY ADM:04/03/13 [id number] 04/04/13 DIS [place] DISCHARGE SUMMARY [id number] [facility] PARISA Hughes [facility] MD Meena Pleitez THIS REPORT IS CONFIDENTIAL AND NOT TO BE RELEASED WITHOUT PROPER AUTHORIZATION. [facility] 5. Docusate sodium 2 tablets once daily. 6. Marinol 10 mg twice daily. 7. Metoprolol succinate 200 mg once daily. 8. Oxycodone 10 mg 10 mg oral as needed. 9. Oxycodone 30 mg oral twice daily. 10. Pravastatin 40 mg at bedtime. 11. Promethazine 25 mg as needed. 12. Ranitidine 1 to 2 tablets once daily. 13. [place] oil 2 tablets twice daily. 14. Valacyclovir 500 mg once daily. There were no new medications or medication dosage changes at time of discharge. PLAN: 1. Mr. Gay will be discharged home on medications as noted above, including his usual m edications of diltiazem and metoprolol. 2. He will be seen and followed by Dr. Gambino on 16 at 9:00 a.m. at [facility], [address]. 3. He will contact our office earlier than scheduled appointment should he have any diffic ulty prior to that time. PARISA Hughes MD A P RICHIE/med #[id number] cc: MD Dona Pleitez ARNP Suwong Wongsuwan, MD Electronically Signed 04/12/13 1400 PARISA Hughes MOE GAY ADM:04/03/13 [id number] 04/04/13 DIS [place] DISCHARGE SUMMARY [id number] [facility] PARISA Hughes [facility] MD Meena Pleitez THIS REPORT IS [...] | | | | | | [place] [address] | | | | | | [phone] | | | | | | | | +--------+ + + + + | 11/20/ | Implant | Cardiology | Daljit Singletary, | Remote Device | | 2019 | Monitor | | [address] [facility] | Interrogation | | | | | [place], | (Primary Dx); | | | | | [place] [address] | Presence of | | | | | [phone] | permanent cardiac | | | | [...] + + + | Glucose | 94Comment: Venezuelan | 65 - 99 mg/dL | [facility] [...] | | | | failure.For | | [facility] | | | | Americans, multiply the [...] + + | YESSY SACRED | [address] | [place] [address] | | | [facility] | | | | | LABORATORY [...] + + | YESSY JONES | [address] | [place] [address] | | | [facility] | | | | | LABORATORY | | | | + + + + + documented in this encounter Visit Diagnoses Not on filedocumented in this encounter"
--- OUTSIDE RECORDS SUMMARY | ~2019-11-01 | XMS | Encounter Summary ---
Demographics + + + | Address | [address] | | | [place] [address] | + + + | Home Phone [...] + +------+ + | Care Professor Of Theatre Name | Role | Phone | + [...] | RN | | | | | [place], | | | | | | [place] [address] | | | | | | [phone] | | | +--------+ + + + [...] W | | | | | | [place], | | | | | | [place] [address] | | | | | | [phone] | | | | | | | | +--------+ + + + + | 11/20/ | Implant | Cardiology | Daljit Singletary, | Remote Device | | 2019 | Monitor | | [address] | Interrogation | | | | | [place], | (Primary Dx); | | | | | [place] [address] | Presence of | | | | | [phone] | permanent cardiac | | | | [...]
--- OUTSIDE RECORDS SUMMARY | ~2019-11-01 | XMS | Encounter Summary ---
Demographics + + + | Address | [address] | | | [place] [address] | + + + | Home Phone [...] Team Providers + +------+ + | Care Sport Psychologist Name | Role | Phone | + +------+ + | Kirk French MD | PCP | | + +------+ + Encounter Details +--------+ + + + + | Date | Type | Department | Care Team | Description | +--------+ + + + + | 01/05/ | Hospital | [facility] | Emmanuel Daniel MD | Functional diarrhea | | 2019 | Encounter | MED CTR MP INTRA OP | [address], [place] | (Primary Dx); Weight | | | | [address] | [address] [place], [place] | loss | | | | [place], [place] | [address] | | | | | [address] | | | | | | [phone] | | | +--------+ + + + [...] for a few hours. Date Last Reviewed: 09/22/201619992530-8812 [employer]. [address] [place] [address], [place] [address]. All righ ts reserved. This information is [...] vomiting, or vomiting blood Date Last Reviewed: 05/22/201619990734-5271 [employer]. [address] [place] [address]. All apex medical centerh ts reserved. This information is not intended [...] You can't be awakened Date Last Reviewed: 09/08/201619994773-8291 [employer]. [address] [place] [address], [place] [address]. All righ ts reserved. This information is [...] + + + +---------+ + + | [place]-3 Fatty | CAPS, one capsule by | [...] W | | | | | | [place], | | | | | | [place] [address] | | | | | | [phone] | | | | | | | | +--------+ + + + + | 11/20/ | Implant | Cardiology | Daljit Singletary, | Remote Device | | 2018 | Monitor | | MD [address] | Interrogation | | | | | [place], | (Primary Dx); | | | | | [place] [address] | Presence of | | | | | [phone] | permanent cardiac | | | | [...] [address], | REFERENCE LAB | | [place], [place] [address] Re Etcher: Miguel Galarza MD, Phone: | [facility] | | [phone] | | + + + + + + + + | Performing | Address | City/State/Zipcode | Phone Number | | Organization | | | | + + + + + | REFERENCE LAB | [address] | [place] [address] | [phone] | | [facility] | Drive [...] [address], | REFERENCE LAB | | [place] [id number] Re Etcher: Miguel Galarza MD, Phone: | [facility] | | [phone] | | + + + + + + + + | Performing | Address | City/State/Zipcode | Phone Number | | Organization | | | | + + + + + | REFERENCE LAB | [address] [facility] [address] | [place] [address] | [phone] | | [facility] | [facility] | | | + + [...] [address] | [place] | [phone] | | [facility] | | [address] | | | - LABORATORY | | [...] Negative for toxigenic | | [facility] | | | GDH Antigen | Clostridium [...] [address] | [place] | [phone] | | [facility] | | [address] | | | - LABORATORY | | [...] | | | dium | | | [facility] | | | Antigen | | | [...] [address] | [place] | [phone] | | [facility] | | [address] | | | - LABORATORY | | [...] [address] | [place] | [phone] | | [facility] | | [address] | | | - LABORATORY | | [...] [address] | [place] | [phone] | | [facility] | | [address] | | | - LABORATORY | | [...] ST. | [address] | [place], [place] | [phone] | | [facility] | | [address] | | | - LABORATORY | | | | + + + + + BERNARDD (01/05/2019 8:36 AM PST) + + | Specimen | + + | | + + + + -+ | Narrative | Performed At | + + -+ | | [facility] | | GastroenterologyPatient Name: Moe Venegas Date: | PROVATION | | 01/05/2019 8:36 AMMRN: [id number] #: [id number] of : | | | 9Admit Type: AmbulatoryAge: 58Room: [facility] 01Gender: MaleNote | | | Status: FinalizedAttending MD: Emmanuel Daniel , [facility]cedure: | | | Upper GI endoscopyIndications: Diarrhea, Weight | | | lossProviders: Emmanuel Daniel MD, Heidi An, | | | RN, Kim Hicks, Ldr Nurse, | | | Jarett Barakat MD (Anesthesia [...] physician, the nurse, the anesthesiologist and the medical service technician | | | in the endoscopy [...] | | Imaging was performed using the [employer] | | | Endoscopy (FICE) [...] Scope In: 8:43:57 AMScope Out: 8:49:50 AM [facility]. | | | [facility], [address] [place] [address] | | | [phone] | | |Recommendation: | | | - [...] |Scope Out: 8:49:50 AM | | | [facility], [address] [facility], [place], [place] | | | [address] | | + + -+ + +---------+ [...] | PROVATION | | 01/05/2019 8:36 AMMRN: [id number] #: [id number] of : | | | 9Admit Type: AmbulatoryAge: 58Room: [facility] 01Gender: MaleNote | | | Status: FinalizedAttending MD: Emmanuel Daniel , [facility]cedure: | | | ColonoscopyIndications: Clinically significant diarrhea of | | | unexplained origin, Weight lossProviders: | | | Emmanuel Daniel MD, Heidi An RN, [place] | | | Fiorella Hicks, Ldr Nurse, Jarett Sapna | | | MD Roshni [...] | | | the anesthesiologist and the medical service technician in the endoscopy suite. | | [...] AMScope Out: | | | 9:06:28 AM [facility], [address] [place] [address], | | | [place] [address] | | | - Discharge patient to [...] |Scope Out: 9:06:28 AM | | | [facility], [address] [place] [address], [place], [place] | | | [address] | | + + -+ + +---------+ [...] | | | (atherosclerotic heart disease of [place] coronary artery without | | | angina [...] A. The | | | specimen, labeled "[place], duodenal biopsy" is received in formalin | | | and consists of seven 0.1-0.5 cm lin fragments. Entirely submitted in | | | (A1). B. The specimen, labeled "[place], right colon" is received | | | in formalin and consists of six 0.2-0.3 cm lin fragments. Entirely | | | submitted in (B1). C. The specimen, labeled "[place], left colon" | | | is received in formalin and consists of six 0.2-0.3 cm lin-pink | | | fragments. Entirely submitted in (C1). am:AMB:portillo PERFORMING | | | LABORATORY: The technical component was performed by [facility] | | | Diagnostics, [address] [place] [address] (Aluminum Container Tester: | | | Kailey Stafford MD; CLIA# [id number]). Professional interpretation was | | | performed by [employer], [facility], [address] | | | [place] [address] (Aluminum Container Tester: [place] | Shanique Dao M.D.; LAYNE#: [id number]). Diagnostician: [place] | | Sylwia WINKLER [...] ONCE PRN, Wheezing, | | | Starting [facility] 01/05/19 at 0924, | | | [...] ONCE | | | PRN, Nausea, Starting [facility] 01/05/19 | | | at 0924, For 1 dose, | | | Recovery/Phase I | | + +---+ | | | + +---+ documented in this encounter
--- OUTSIDE RECORDS SUMMARY | ~2019-11-01 | XMS | Encounter Summary ---
Demographics + + + | Address | [address] [place] [address] | | | [place] [address] | + + + | Home Phone [...] [place] | | | | | [address] | | + + + + + Care Team Providers + +------+ + | Care Vaccine Key Customer Leader Name | Role | Phone | [...] | | 2019 | | Center at [facility] [address] | MD [address] | | | | | [address] | [facility] [place] | | | | | Mailcode: [place] | [address] | | | | | for Health and | [phone] | | | | | [facility] 2 | | | | | | [facility] [place] | | | | | | [address] | | | | | | [phone] | | | +--------+ + + + [...]
--- OUTSIDE RECORDS SUMMARY | ~2019-11-01 | XMS | Encounter Summary ---
Demographics + + + | Address | [address] | | | [place] [address] | + + + | Home Phone [...] Providers + +------+ + | Care Bank Vault Custodian Name | Role | Phone | [...] Provider Unknown | | | | | [place], [place] | [phone] | | | | | [address] | | | | | | [phone] | | | +--------+ + + + [...] + + +---------+ + + | [place]-3 Fatty | CAPS, one capsule by [...] | | | | | | [place] [address] | | | | | | [phone] | | | | | | | | +--------+ + + + + | 11/20/ | Implant | Cardiology | Daljit Singletary, | Remote Device | | 2019 | Monitor | | [address] [facility] | Interrogation | | | | | [place], | (Primary Dx); | | | | | [place] [address] | Presence of | | | | | [phone] | permanent cardiac | | | | [...]
--- OUTSIDE RECORDS SUMMARY | ~2019-11-01 | XMS | Encounter Summary ---
Demographics + + + | Address | [address] | | | [place] [address] | + + + | Home Phone [...] Providers + +------+ + | Care Pharmacist In Charge Name | Role | Phone | + [...] | Transaction, | | | | | JUAJNO SAENZVD | Provider Unknown | | | | | [place], [place] | [phone] | | | | | [address] | | | | | | [phone] | | | +--------+ + + + [...] + + + +---------+ + + | [place]-3 Fatty | CAPS, one capsule by | [...] | | | | | | [place] [address] | | | | | | [phone] | | | | | | | | +--------+ + + + + | 11/20/ | Implant | Cardiology | Daljit Singletary, | Remote Device | | 2019 | Monitor | | [address] [facility] | Interrogation | | | | | [place], | (Primary Dx); | | | | | [place] [address] | Presence of | | | | | [phone] | permanent cardiac | | | | [...]
--- OUTSIDE RECORDS SUMMARY | ~2019-11-01 | XMS | Encounter Summary ---
Demographics + + + | Address | [address] | | | [place] [address] | + + + | Home Phone [...] + + | 03/07/ | Office | [facility] | [place], | SINUS [place]AD[place]CARDIA | | 2013 | Visit | CARDIOLOGY [address] | PARISA [place] [address] | (Primary Dx); | | | | [place], | [place], | Syncope; Symptomatic | | | | [place] [address] | [place] [address] | PVCs; Pacemaker - | | | | [phone] | [phone] | Medtronic - [id number] | | | [...] Sanchez Date: March 07, 2014 : 1960 Biosecurity Officer: Kailey Pruitt RN Device Counter Supply Worker:Medtronic Sense (mV) Impedance (?) Capture (V) Capture (ms) A Lead >5.60 402 1.500 0.09 RV Lead >31.36 522 2.00 0.09 LV Lead Battery Impedance (?): 528 Battery Voltage (V): 2.79 FL Interval (ms): 147 AR Interval (ms): 217 VA Conduction: Mode Switch Events: 0 % of time: 0 -YARDAGE CONTROL OPERATOR: <0.1% AP-YARDAGE CONTROL OPERATOR: 0.1% -VS: 23.8% AP-VS: 76.1% YARDAGE CONTROL OPERATOR: Magnetic Rate: 85 LINDA: 65 LEAH: [...] Pruitt RN 03/07/2014 12:00 Janeen Mccollum AR DIRECTOR OPERATING ROOM - 03/07/2014 11:07 AM PDT PATIENT NAME: [...] headaches. He paulino d been seen at [facility] a couple times with chest pain [...] needed for Chest pain. 25 tablet 12 [place]-3 Fatty Acids (SALMON OIL-1000 PO) CAPS, one capsule by mouth daily twice daily ONE TOUCH DELICA LANCETS [facility] Check glucose as needed for [...] Sanchez Date: March 07, 2014 : 1960 Biosecurity Officer: Kailey Pruitt RN Device Counter Supply Worker:[employer] Sense (mV) Impedance (?) Capture (V) Capture (ms) A Lead >5.60 402 1.500 0.09 RV Lead >31.36 522 2.00 0.09 LV Lead Battery Impedance (?): 528 Battery Voltage (V): 2.79 FL Interval (ms): 147 AR Interval (ms): 217 VA Conduction: Mode Switch Events: 0 % of time: 0 -YARDAGE CONTROL OPERATOR: <0.1% AP-YARDAGE CONTROL OPERATOR: 0.1% -VS: 23.8% AP-VS: 76.1% YARDAGE CONTROL OPERATOR: Magnetic Rate: 85 LINDA: 65 LEAH: [...] attenuation cannot completely be ruled out. [facility] 12/25/13, shows noncritical coronary artery [...] pain. He is in class II of [place] [employer] functional class . There are [...] to go back in 3 days to [place] for an attempt of ablation under general [...] palpitations.. He is in class II of [employer] 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 There are no [...] bring in his blood pressure logs from [facility] e 5. Lightheadedness and dizziness/ presyncope: A. [...] made to ensure accuracy; however, inadvertent computerized coil binder errors may be pre sent. Electronically signed [...] W | | | | | | [place], | | | | | | [place] [address] | | | | | | [phone] | | | | | | | | +--------+ + + + + | 11/20/ | Implant | Cardiology | Daljit Singletary, | Remote Device | | 2019 | Monitor | | MD Chiquis [place]ro | Interrogation | | | | | [place], | (Primary Dx); | | | | | [place] [address] | Presence of | | | | | [phone] | permanent cardiac | | | | [...] 07, 2014 : | | | 1960 Biosecurity Officer: Kailey Pruitt RN Device | | | Counter Supply Worker:[employer] Sense (mV) Impedance (?) Capture (V) | | | Capture (ms) A Lead >5.60 402 1.500 0.09 RV Lead >31.36 522 2.00 | | | 0.09 LV Lead Battery Impedance (?): 528 Battery Voltage (V): | | | 2.79 FL Interval (ms): 147 AR Interval (ms): 217 VA Conduction: | | | Mode Switch Events: 0 % of time: 0 -YARDAGE CONTROL OPERATOR: <0.1% AP-YARDAGE CONTROL OPERATOR: 0.1% -VS: | | | 23.8% AP-VS: 76.1% YARDAGE CONTROL OPERATOR: Magnetic Rate: 85 LINDA: 65 LEAH: [...] | | Date: March 07, 2014DOB: 1960 Biosecurity Officer: Kailey Pruitt RN Device | | Counter Supply Worker:[employer] Sense (mV) Impedance (?) Capture (V) Capture (ms) A Lead >5.60 | | 402 1.500 0.09 RV Lead >31.36 522 2.00 0.09 LV Lead Battery Impedance (?): 528 | | Battery Voltage (V): 2.79 FL Interval (ms): 147 AR Interval (ms): 217 VA Conduction: | | Mode Switch Events: 0 % of time: 0 -YARDAGE CONTROL OPERATOR: <0.1% AP-YARDAGE CONTROL OPERATOR: 0.1% -VS: 23.8% AP-VS: 76.1% | | YARDAGE CONTROL OPERATOR: Magnetic Rate: 85 LINDA: 65 LEAH: [...]
--- OUTSIDE RECORDS SUMMARY | ~2019-11-01 | XMS | Encounter Summary ---
Demographics + + + | Address | [address] | | | [place] [address] | + + + | Home Phone [...] Team Providers + +------+ + | Care Voltmeter Operator Name | Role | Phone | [...] CARDIOLOGY [address] | MD [address] [place] | Dx); SINUS | | | | [place], | [place], | [place] | | | | [place] [address] | [place] [address] | | | | | [phone] | [phone] | | | | | | | [...] | | | | | | [place] [address] | | | | | | [phone] | | | | | | | | +--------+ + + + + | 11/20/ | Implant | Cardiology | Daljit Singletary, | Remote Device | | 2019 | Monitor | | [address] [facility] | Interrogation | | | | | [place], | (Primary Dx); | | | | | [place] [address] | Presence of | | | | | [phone] | permanent cardiac | | | | [...]
--- OUTSIDE RECORDS SUMMARY | ~2019-11-01 | XMS | Encounter Summary ---
Demographics + + + | Address | [address] | | | [place] [address] | + + + | Home Phone [...] + + | 04/12/ | Telephone | [facility] | Daljit Singletary, | Other (issues with | | 2017 | | CARDIOLOGY [address] | MD [address] [place] | low blood pressure | | | | [place], | [place], | and dizziness) | | | | [place] [address] | [place] [address] | | | | | [phone] | [phone] | | | | | | | [...] | | | | | | [place] [address] | | | | | | [phone] | | | | | | | | +--------+ + + + + | 11/20/ | Implant | Cardiology | Daljit Singletary, | Remote Device | | 2018 | Monitor | | [address] [place] | Interrogation | | | | | [place], | (Primary Dx); | | | | | [place] [address] | Presence of | | | | | [phone] | permanent cardiac | | | | [...]
--- OUTSIDE RECORDS SUMMARY | ~2019-11-01 | XMS | Encounter Summary ---
Demographics + + + | Address | [address] | | | [place] [address] | + + + | Home Phone [...] Providers + +------+ + | Care Fish Dressing Machine Feeder Name | Role | Phone [...] Refill | | 2012 | | MEDICINE [place] | DO [address] | | | | | [address] | [place] | | | | | [place] | [address] | | | | | [address] | | | | | | [phone] | | | +--------+--------+ + + + [...] W | | | | | | [place], | | | | | | [place] [address] | | | | | | [phone] | | | | | | | | +--------+ + + + + | 11/20/ | Implant | Cardiology | Daljit Singletary, | Remote Device | | 2018 | Monitor | | [address] [facility] | Interrogation | | | | | [place], | (Primary Dx); | | | | | [place] [address] | Presence of | | | | | [phone] | permanent cardiac | | | | [...]
--- OUTSIDE RECORDS SUMMARY | ~2019-11-01 | XMS | Encounter Summary ---
Demographics + + + | Address | [address] | | | [place] [address] | + + + | Home Phone [...] Providers + +------+ + | Care Enamel Sprayer Name | Role | Phone | [...] | CARDIOLOGY [address] | MD [address] [place] | | | | | [place], | [place], | | | | | [place] [address] | [place] [address] | | | | | [phone] | [phone] | | | | | | | [...] | | | | | | [place], | | | | | | [place] [address] | | | | | | [phone] | | | | | | | | +--------+ + + + + | 11/20/ | Implant | Cardiology | Daljit Singletary, | Remote Device | | 2018 | Monitor | | [facility] | Interrogation | | | | | [place], | (Primary Dx); | | | | | [place] [address] | Presence of | | | | | [phone] | permanent cardiac | | | | [...]
--- OUTSIDE RECORDS SUMMARY | ~2019-11-01 | XMS | Encounter Summary ---
Demographics + + + | Address | [address] | | | [place] [address] | + + + | Home Phone [...] Providers + +------+ + | Care Office Clin Asst Name | Role | Phone | [...] Refill | | 2011 | | MEDICINE [place] | DO [address] | | | | | [address] | [place] | | | | | [place] | [address] | | | | | [address] | | | | | | [phone] | | | +--------+--------+ + + + [...] | | | | | | [place] [address] | | | | | | [phone] | | | | | | | | +--------+ + + + + | 11/20/ | Implant | Cardiology | Daljit Singletary, | Remote Device | | 2019 | Monitor | | [facility] | Interrogation | | | | | [place], | (Primary Dx); | | | | | [place] [address] | Presence of | | | | | [phone] | permanent cardiac | | | | [...]
--- OUTSIDE RECORDS SUMMARY | ~2019-11-01 | XMS | Encounter Summary ---
Demographics + + + | Address | [address] | | | [place] [address] | + + + | Home Phone [...] Team Providers + +------+ + | Care Biotech Production Specialist Name | Role | Phone | + +------+ + PCP | Unavailable | + +------+ + Encounter Details +--------+ + + + + | Date | Type | Department | Care Team | Description | +--------+ + + + + | 11/12/ | Hospital | [facility] | | | | 1994 | Encounter | MED CTR GENERIC OP | | | | | | CONV DEPT [address] | | | | | | [place], | | | | | | [place] [address] | | | | | | [phone] | | | +--------+ + + + [...] | | | | | | [place] [address] | | | | | | [phone] | | | | | | | | +--------+ + + + + | 11/20/ | Implant | Cardiology | Daljit Singletary, | Remote Device | | 2018 | Monitor | | [address] [facility] | Interrogation | | | | | [place], | (Primary Dx); | | | | | [place] [address] | Presence of | | | | | [phone] | permanent cardiac | | | | [...]
--- OUTSIDE RECORDS SUMMARY | ~2019-11-01 | XMS | Encounter Summary ---
Demographics + + + | Address | [address] | | | [place] [address] | + + + | Home Phone [...] Providers + +------+ + | Care Contract Loader Name | Role | Phone | [...] | | | | Sinoatrial | Jose, POLICE CLERK | [address] | | | | | node | [address] | [place], | | | | | dysfunction | [place] | [place] | | | | | (HCC) | [place], [place] | [address] | | | | | Coronary | [address] | Phone: | | | | | artery | Phone: | [phone] | | | | | disease | [phone] | Fax: | | | | | involving | Fax: | [phone] | | | | | [place] | [phone] | | | | | | coronary | | | | | | | artery of | | | | | | | [place] heart | | | | | | [...] | Visit | CARDIOLOGY [address] | POLICE CLERK [address] | dysfunction (HCC) | | | | Home [place], | [place], [place] | with symptomatic | | | | [place] [address] | [address] | bradycardia (Primary | | | | [phone] | | Dx); Coronary | | | | | | artery disease | | | | | | involving [place] | | | | | | coronary artery of | | | | | | [place] heart without | | | | | [...] 1960: AGE: 55 y.o. PRIMARY CARE: Sarah rFench MD OUTPATIENT FOLLOW UP VISIT Date of [...] Preventative health care Coronary artery disease involving [place] coronary artery without angina pectoris Cannabis abuse, [...] 3rd dose, call 911 100 tablet 3 [place]-3 Fatty Acids (SALMON OIL-1000 PO) CAPS, one capsule by mouth daily twice daily ONE TOUCH DELICA LANCETS [facility] Check glucose as needed for hypoglycemia 100 [...] scanned Paceart documentation and device PDF in Singulex for interrogation (with progr amming changes) performed [...] this chart may have been created with [facility] voice recognition software. Occasi onal wrong-word or [...] | | | | | | [place] [address] | | | | | | [phone] | | | | | | | | +--------+ + + + + | 11/20/ | Implant | Cardiology | Sydni Singletary, | Remote Device | 2018 | Monitor | | MD Sim [facility] | Interrogation | | | | | [place], | (Primary Dx); | | | | | [place] [address] | Presence of | | | | | [phone] | permanent cardiac | | | | [...] [facility]CTOR HUGO | [facility] | | [facility] Room Number SARAH Patient | [facility] | | [id number] Date of Study 06/16/2016 Number | - IMAGING | | Visit Number [id number] | | | Referring Physician HELLBERG JOSE Number Date of 1960 | | | Value Stream Coach LUIS FERNANDO DUARTE Age | | | 56 year(s) Interpreting | | | GURJIT TROY | | | Warp Tier SYDNI SINGLETARY, | | | Gender | | | Male Nurse Procedure Type of Study TTE | | | procedure: ECHO Complete. Procedure dateDate: 06/16/2016Start: 10:55 | | | AM Technical Quality: Adequate visualizationStudy Location: Echo | | | LabIndications: CAD CHIGNIK [place]AGO[place] CORONARY ARTERY 414.01/ I25.10 and | [...] BARRY Room Number SARAH | | Patient [id number] Date of Study 06/16/2016 Number Visit Number | | [id number] Referring Physician JOSE ARMANDO GARCIA Number | | Date of 1960 Value Stream Coach LUIS FERNANDO DUARTE Age | | 56 year(s) Interpreting GURJIT TROY | | Warp Tier SYDNI SINGLETARY, | | Gender Male NurseProcedureType of Study TTE | | procedure: ECHO Complete.Procedure dateDate: 07/26/2016Start: 10:55 AMTechnical Quality: | | Adequate visualizationStudy Location: Echo LabIndications: CAD CHIGNIK LAGOON CORONARY ARTERY | | 414.01/ I25.10 [...] ST. | [address] | [place] | [phone] | | [facility] | | [address] | | | - IMAGING | | [...] | | 2. Coronary artery disease involving [place] coronary artery of | | | [place] heart without angina pectoris I25.10 414.01 [...] + + | Coronary artery disease involving [place] coronary artery of [place] heart without | | angina pectoris [...]
--- OUTSIDE RECORDS SUMMARY | ~2019-11-01 | XMS | Encounter Summary ---
Demographics + + + | Address | [address] | | | [place] [address] | + + + | Home Phone [...] Providers + +------+ + | Care Rehabilitation Inspector Name | Role | Phone | + +------+ + | Michael Amanda DO | PCP | | + +------+ + Encounter Details +--------+ + + + + | Date | Type | Department | Care Team | Description | +--------+ + + + + | 11/03/ | Emergency | [facility] | Eliel Calzada, | Palpitations; | | 2013 - | | MEDICAL [facility]ENTER | MD Chiquis JOHNSON | Atypical chest pain | | | | EMERGENCY CENTER | [facility] | | | 11/04/ | | [address] | [address] | | | 2013 | | [place], [place] | | | | | | [address] | | | | | | [phone] | | | +--------+ + + + [...] + + + +---------+ + + | Warba-3 Fatty | CAPS, one capsule by | [...] | | | | | | [place] [address] | | | | | | [phone] | | | | | | | | +--------+ + + + + | 11/20/ | Implant | Cardiology | Daljit Singletary, | Remote Device | | 2019 | Monitor | | [address] [facility] | Interrogation | | | | | [place], | (Primary Dx); | | | | | [place] [address] | Presence of | | | | | [phone] | permanent cardiac | | | | [...] CHEST 2 VIEW FRONTAL | | AND AZVAZHI0111/03/2014 11:56 PM History: 54 years. Male. Acute [...] EXTERNAL | | | | performed at [facility];888 | | LAB | | | | [address] [facility];[place], [place] | | | | | | [address] | | | | + + + + + -+ | RED CELL | 4.97Comment: Testing | 4.20 - 5.70 | EXTERNAL | | | COUNT | performed at [facility];888 | M/uL | LAB | | | | [address];[place] | | | | | | [address] | | | | + + + + + -+ | Hgb | 16.8Comment: Testing | 13.2 - 17.0 | EXTERNAL | | | | performed at [facility];888 | g/dL | LAB | | | | [address];[place] | | | | | | [address] | | | | + + + + + -+ | Hematocrit, | 48.2Comment: Testing | 39.0 - 50.0 % | EXTERNAL | | | POC | performed at [facility];888 | | LAB | | | | [address];[place] | | | | | | [address] | | | | + + + + + -+ | MCV | 97.1Comment: Testing | 80.0 - 100.0 fl | EXTERNAL | | | | performed at [facility];888 | | LAB | | | | [address];[place] | | | | | | [address] | | | | + + + + + -+ | MCH | 33.9Comment: Testing | 27.0 - 34.0 pg | EXTERNAL | | | | performed at [facility];888 | | LAB | | | | [address];[place] | | | | | | [address] | | | | + + + + + -+ | MCHC | 34.9Comment: Testing | 32.0 - 35.5 | EXTERNAL | | | | performed at [facility];888 | g/dL | LAB | | | | [address];[place] | | | | | | [address] | | | | + + + + + -+ | RDW-CV | 42.4Comment: Testing | 37 - 53 fl | EXTERNAL | | | | performed at [facility];888 | | LAB | | | | [address];[place] | | | | | | [address] | | | | + + + + + -+ | Platelet | 143 (L)Comment: Testing | 150 - 400 K/uL | EXTERNAL | | | Count | performed at [facility];888 | | LAB | | | Plasma | [address];[place] | | | | | | [address] | | | | + + + + + -+ | MPV | 9.0Comment: Testing | fl | EXTERNAL | | | | performed at [facility];[address] | | LAB | | | | [address];[place] | | | | | | [address] | | | | + + + + + -+ | Differentia | AUTOMATEDComment: | | EXTERNAL | | | l Type | Testing performed at | | LAB | | | | [facility];[address] | | | [address];[place] [address] | | | | + + + + + -+ | % Segmented | 61.6Comment: Testing | % | EXTERNAL | | | | performed at [facility];888 | | LAB | | | Neutrophils | [address];[place] | | | | | | [address] | | | | + + + + + -+ | % | 27.8Comment: Testing | % | EXTERNAL | | | Lymphocytes | performed at [facility];[address] | | LAB | | | | [address];[place] | | | | | | [address] | | | | + + + + + -+ | % Monocytes | 8.7Comment: Testing | % | EXTERNAL | | | | performed at [facility];[address] | | LAB | | | | [address];[place] | | | | | | [address] | | | | + + + + + -+ | % | 0.8Comment: Testing | % | EXTERNAL | | | Eosinophils | performed at [facility];[address] | | LAB | | | | [address];[place] | | | | | | [address] | | | | + + + + + -+ | % Basophils | 1.1Comment: Testing | % | EXTERNAL | | | | performed at [facility];[address] | | LAB | | | | [address];[place] | | | | | | [address] | | | | + + + + + -+ | Absolute | 5.4Comment: Testing | 1.9 - 7.4 K/uL | EXTERNAL | | | Segmented | performed at [facility];888 | | LAB | | | Neutrophils | [address];[place] | | | | | | [address] | | | | + + + + + -+ | Absolute | 2.4Comment: Testing | 1.0 - 3.9 K/uL | EXTERNAL | | | Lymphocytes | performed at [facility];[address] | | LAB | | | | [address];[place] | | | | | | [address] | | | | + + + + + -+ | Absolute | 0.8Comment: Testing | 0 - 0.8 K/uL | EXTERNAL | | | Monocytes | performed at [facility];888 | | LAB | | | | [address];[place] | | | | | | [address] | | | | + + + + + -+ | Absolute | 0.1Comment: Testing | 0 - 0.5 K/uL | EXTERNAL | | | Eosinophils | performed at [facility];[address] | | LAB | | | | [address];[place] | | | | | | [address] | | | | + + + + + -+ | Absolute | 0.1Comment: Testing | 0 - 0.1 K/uL | EXTERNAL | | | Basophils | performed at [facility];888 | | LAB | | | | [address];[place] | | | | | | [address] | | | | + + + + + -+ | RBC | SLIDE SCANNED, AGREES | | EXTERNAL | | | Morphology | WITH AUTOMATED | | LAB | | | | RESULTS.Comment: Testing | | | | | | performed at [facility];[address] | | | | | | [address];[place] | | | | | | [address] | | | | + + + + + -+ | Na | 140Comment: Testing | 135 - 143 | EXTERNAL | | | | performed at [facility];888 | mmol/L | LAB | | | | [address];[place] | | | | | | [address] | | | | + + + + + -+ | K | 3.9Comment: Testing | 3.5 - 4.9 | EXTERNAL | | | | performed at [facility];888 | mmol/L | LAB | | | | [address];[place] | | | | | | [address] | | | | + + + + + -+ | Cl | 107Comment: Testing | 99 - 109 mmol/L | EXTERNAL | | | | performed at [facility];[address] | | LAB | | | | [address];[place] | | | | | | [address] | | | | + + + + + -+ | CO2 | 28Comment: Testing | 23 - 32 mmol/L | EXTERNAL | | | | performed at [facility];[address] | | LAB | | | | [address];[place] | | | | | | [address] | | | | + + + + + -+ | Anion Gap | 9Comment: Testing | 5 - 20 mmol/L | EXTERNAL | | | | performed at [facility];[address] | | LAB | | | | [address];[place] | | | | | | [address] | | | | + + + + + -+ | Glucose, | 97Comment: Testing | 65 - 99 mg/dL | EXTERNAL | | | Fasting | performed at [facility];[address] | | LAB | | | | [address];[place] | | | | | | [address] | | | | + + + + + -+ | BUN | 14Comment: Testing | 8 - 25 mg/dL | EXTERNAL | | | | performed at [facility];[address] | | LAB | | | | [address];[place] | | | | | | [address] | | | | + + + + + -+ | Creatinine | 0.98Comment: Testing | 0.70 - 1.30 | EXTERNAL | | | | performed at [facility];888 | mg/dL | LAB | | | | [address];[place] | | | | | | [address] | | | | + + + + + -+ | BUN/Creatin | 14Comment: Testing | | EXTERNAL | | | ine Ratio | performed at [facility];[address] | | LAB | | | | [address];[place] | | | | | | [address] | | | | + + + + + -+ | Calcium | 8.8Comment: Testing | 8.5 - 10.2 | EXTERNAL | | | | performed at [facility];888 | mg/dL | LAB | | | | [address];[place] | | | | | | [address] | | | | + + + + + -+ | Protein, | 6.9Comment: Testing | 6.3 - 8.2 g/dL | EXTERNAL | | | Total | performed at [facility];[address] | | LAB | | | | [address];[place] | | | | | | [address] | | | | + + + + + -+ | Albumin | 3.7Comment: Testing | 3.6 - 5.0 g/dL | EXTERNAL | | | | performed at [facility];888 | | LAB | | | | [address];[place] | | | | | | [address] | | | | + + + + + -+ | Globulin | 3.2Comment: Testing | 1.3 - 4.9 g/dL | EXTERNAL | | | | performed at [facility];888 | | LAB | | | | [address];[place] | | | | | | [address] | | | | + + + + + -+ | A/G Ratio | 1.2Comment: Testing | 1.0 - 2.4 | EXTERNAL | | | | performed at [facility];[address] | | LAB | | | | [address];[place] | | | | | | [address] | | | | + + + + + -+ | Bilirubin | 0.9Comment: Testing | 0.1 - 1.5 mg/dL | EXTERNAL | | | Total | performed at [facility];[address] | | LAB | | | | [address];[place] | | | | | | [address] | | | | + + + + + -+ | ALP, | 60Comment: Testing | 35 - 115 U/L | EXTERNAL | | | External | performed at [facility];[address] | | LAB | | | | [address];[place] | | | | | | [address] | | | | + + + + + -+ | AST | 22Comment: Testing | 10 - 45 U/L | EXTERNAL | | | | performed at [facility];[address] | | LAB | | | | [address];[place] | | | | | | [address] | | | | + + + + + -+ | ALT | 37Comment: Testing | 10 - 65 U/L | EXTERNAL | | | | performed at [facility];[address] | | LAB | | | | [address];[place] | | | | | | [address] | | | | + + + [...] | | | | | | at [facility];[address] [facility] | | | | | | Blvd;[place] [address] | | | | + + + + + -+ | CK, Total | 103Comment: Testing | 55 - 400 U/L | EXTERNAL | | | | performed at [facility];[address] | | LAB | | | | [facility] [address];[place], [place] | | | | | | [address] | | | | + + + [...] | | | | | performed at [facility];[address] | | | | | | [address];[place] | | | | | | [address] | | | | + + + + + -+ | aPTT, | 26Comment: Testing | 23 - 32 seconds | EXTERNAL | | | Patient | performed at [facility];[address] | | LAB | | | | [address];[place] | | | | | | [address] | | | | + + + + + -+ | CK-MB | 2.9Comment: Testing | 0.5 - 3.6 ng/mL | EXTERNAL | | | | performed at [facility];[address] | | LAB | | | | [address];[place] | | | | | | [address] | | | | + + + [...] EXTERNAL | | | | performed at [facility];888 | uIU/mL | LAB | | | | [address];[place], [place] | | | | | | [address] | | | | + + + [...] EXTERNAL | | | | performed at [facility];888 | | LAB | | | | [address];[place] | | | | | | [address] | | | | + + + [...] EXTERNAL | | | | performed at [facility];888 | | LAB | | | | [address];[place], [place] | | | | | | [address] | | | | + + + [...]
--- OUTSIDE RECORDS SUMMARY | ~2019-11-01 | XMS | Encounter Summary ---
Demographics + + + | Address | [address] | | | [place] [address] | + + + | Home Phone [...] Team Providers + +------+ + | Care Pedorthist Name | Role | Phone | + [...] Eva ROUSE | | | | | [place], [place] | [address] | | | | | [address] | [place] [address] | | | | | [phone] | [phone] | | | | | | | [...] W | | | | | | [place], | | | | | | [place] [address] | | | | | | [phone] | | | | | | | | +--------+ + + + + | 11/20/ | Implant | Cardiology | Daljit Singletary, | Remote Device | | 2018 | Monitor | | [address] | Interrogation | | | | | [place], | (Primary Dx); | | | | | [place] [address] | Presence of | | | | | [phone] | permanent cardiac | | | | [...]
--- OUTSIDE RECORDS SUMMARY | ~2019-11-01 | XMS | Clinical Summary ---
Demographics + + + | Address | [address] | | | [place] [address] | + + + | Home Phone | | + + + | Preferred Language | Unknown | + + + | Marital Status | | + + + | Baptism Affiliation | 1013 | + + + | Race | Unknown | + + + | Ethnic Group | Unknown | + + + Author + + + | Author | [facility] (Historical as of | | | 07-08-19) | + + + | Organization | [facility] (Historical as of | | | 07-08-19) [...] Team Providers + +------+ + | Care Eye Glass Frame Polisher Name | Role | Phone | [...] + | AUTO INSURANCE | AUTO | [id number] | | | | | | INSURA | | | | | | | NCE | | | | | | | GENERI | | | | | | | C | | | | | + +--------+ +------+-------+ + | AUTO INSURANCE | AUTO | [id number] | | | | | | INSURA | [id number] | | | | | | NCE | | | | | | | GENERI | | | | | | | C | | | | | + +--------+ +------+-------+ + | MEDICARE | MEDICA | [id number] | | | [address] | | | RE | | | | [place], [place] [address] | | | IP-OP | | | | | + +--------+ +------+-------+ + | [facility] | [place] | [id number] | | | | | | | [...] | Self | [birth year] | Home: | [address] | | | al/Fam | | 9 | +[address]- | [address] [place], [place] | | | roxanne | | | [address] | [address] | + +--------+ +--------+ + + | AMILCAR GAY | Third | Self | [birth year] | Home: | [address] | | | [place] | | 9 | +- | [place], [place] | | | Li[place] | | | [phone] | [phone] | | | ity | | | | | + +--------+ +--------+ + + | AMILCAR GAY | Third | Self | [birth year] | Home: | [address] | | | [place] | | 1960 | +- | [place], [place] | | | [place] | | | [phone] | [address] | | | ity | | | | | + +--------+ +--------+ + +
--- OUTSIDE RECORDS SUMMARY | ~2019-11-01 | XMS | Encounter Summary ---
Demographics + + + | Address | [address] | | | [place] [address] | + + + | Home Phone [...] Providers + +------+ + | Care Healthcare Consulting Manager Name | Role | Phone [...] Refill | | 2013 | | [facility] [place] | DO [address] | | | | | [address] | [place] | | | | | [place] | [address] | | | | | [address] | | | | | | [phone] | | | +--------+--------+ + + + [...] | | | | | | [place], | | | | | | [place] [address] | | | | | | [phone] | | | | | | | | +--------+ + + + + | 11/20/ | Implant | Cardiology | Daljit Singletary, | Remote Device | | 2018 | Monitor | | [address] [facility] | Interrogation | | | | | [place], | (Primary Dx); | | | | | [place] [address] | Presence of | | | | | [phone] | permanent cardiac | | | | [...]
--- OUTSIDE RECORDS SUMMARY | ~2019-11-01 | XMS | Encounter Summary ---
Demographics + + + | Address | [address] | | | [place] [address] | + + + | Home Phone [...] + + +---------+ + | Maira Isabel Gay | ECON | Unknown | | + + +---------+ + Care Team Providers + +------+ + | Care General Surgery Physician Assistant Name | Role | Phone [...] | Palpitations | [address] | | | | | Procedures | [address] | [address] [place] | | | | | ECHO | [place], | [place], [place] | | | | | Complete | [place] [address] | [address] | | | | | | Phone: | Phone: | | | | | | [phone] | [phone] | | | | | | Fax: | Fax: | | | | | | [phone] | [phone] | +--------+--------+ + + + + Reason [...] + + | 12/21/ | Office | [facility] | Daljit Singletary, | Palpitations | | 2012 | Visit | CARDIOLOGY [address] [place] | (Primary Dx); PVC | | | | [place], | [place], | (premature | | | | [place] [address] | [place] [address] | ventricular | | | | [phone] | [phone] | contraction) | | | | | [...] himself to the emergency department at [facility] in [place], [place]. Today, patient is apprehensive of the [...] tablet Take 1,000 mg by mouth Daily. [place]-3 Fatty Acids (SALMON OIL-1000 PO) CAPS, one [...] tablet Take 1,000 mg by mouth Daily. [place]-3 Fatty Acids (SALMON OIL-1000 PO) CAPS, one [...] Gay Date: December 21, 2012 : 1960 Gear Finisher: PARISA Velazquez Device Healthcare Liaison: Copyteletronic Sense (mV) Impedance (?) Capture (V) Capture (ms) A Lead 4-5.6 423 1.5 0.09 RV Lead >31.36 539 2.0 0.09 LV Lead Battery Impedance (?): 301 Battery Voltage (V): 2.8 AL Interval (ms): 140 AR Interval (ms): 210 VA Conduction: Mode Switch Events: N/A % of time: -CATALOG LIBRARIAN: 0.6 AP-CATALOG LIBRARIAN: 1.3 -VS: 23.9 AP-VS: 74.2 CATALOG LIBRARIAN: Magnetic Rate: 85 LINDA: 65 LEAH: [...] to the emerge ncy department at [facility] in [place], [place]. EKG showed normal sinus rhythm with [...] I will d iscuss this option with vaccine specialist in [place]. 7. Followup in 2-4 weeks. Portions of this report were transcribed using voice recognition software. Every effort wa s made to ensure accuracy; however, inadvertent computerized kitchen mechanic errors may be pre sent. documented in [...] | | | | | | [place] [address] | | | | | | [phone] | | | | | | | | +--------+ + + + + | 11/20/ | Implant | Cardiology | Daljit Singletary, | Remote Device | | 2019 | Monitor | | [address] [facility] | Interrogation | | | | | [place], | (Primary Dx); | | | | | [place] [address] | Presence of | | | | | [phone] | permanent cardiac | | | | [...] | [facility] Diagnostic [facility] | [facility] | | Department [address] | [facility] | | [ rep ct [address]] [ rep ct [facility] | | st zip] Signed | - IMAGING | | | | | Patient Name: MOE GAY | | | Physician: MIGUELINA : 1960 Age: 52 Sex: M Unit | | | #: [id number] Exam Date: 12/30/12 Location: | | | IMG Report #: [id number] Page: | | | %(RAD)RES..mtdd.print.filter("pg") of %(RAD) | | | RES..mtdd.print.filter("tpg") | | | | | | Accession Number: [id number] | | | E C H O C A R D I O G R A P H Y R E P O R T | | | HEIGHT: 76" WEIGHT: 270# | | | DIRECT SALES PROFESSIONAL: JAMEEL REFERRING DR: TIMMY READING DR: | [...] | | | Transcribed Date/Time: 12/30/2012 16:34 Cloth Mender: | | | <<Signature on File>> | | | Daljit | | | MD Gemini [facility] FASE01/02/13 0955 <Electronically signed by | | | Daljit Singletary MD, [facility], FACP, FASE, FASNC> Rashadong | | | MD CLEOPATRA Singletary FASE 12/30/12 1608 Cloth Mender: Jessica | | | Vuoqodsnngbhn06/08/13 1634 MD ROSEMARY Newby | | | FASE | | + + + + + + + + | Performing | Address | City/[facility] | Phone Number | | Organization | | | | + + + + + | [address] | [address] | [place] | [phone] | | [facility] | | [address] | | | - IMAGING | | | | + + + + + documented in this encounter Visit Diagnoses + + | Diagnosis | + + | Palpitations - Primary | + + | PVC (premature ventricular contraction) Other premature beats | + + documented in this encounter
--- OUTSIDE RECORDS SUMMARY | ~2019-11-01 | XMS | Encounter Summary ---
Demographics + + + | Address | [address] [place] [address] | | | [place] [address] | + + + | Home Phone [...] [place] | | | | | [address] | | + + + + + Care Team Providers + +------+ + | Care Billing Clinician Name | Role | Phone | [...] as of this encounter Progress Notes Interface, Flower Shop Manager In - 07/19/2006 3:05 AM PDTCLINIC DATE: 06/13/2002 [facility] REFERRING PHYSICIAN: Eugene Vera D.O. [address] [place] [address] Mr. Sanchez is a new patient. He [...] proceed. Martell Allen M.D. ELIZABETH / KATTY [id number] / [id number] / [id number] / [id number] cc: Eugene Vera D.O. [address] [place] [id number] signed by Interface, Flower Shop Manager In at 07/19/2006 3:0 5 AM PDTdocumented in this encounter Plan of Treatment Not on filedocumented as of this encounter Visit Diagnoses Not on filedocumented in this encounter
--- OUTSIDE RECORDS SUMMARY | ~2019-11-01 | XMS | Encounter Summary ---
Demographics + + + | Address | [address] | | | [place] [address] | + + + | Home Phone [...] Providers + +------+ + | Care Pediatric Physical Therapy Assistant Name | Role | Phone | + +------+ + PCP | Unavailable | + +------+ + Encounter Details +--------+ + + + + | Date | Type | Department | Care Team | Description | +--------+ + + + + | 08/02/ | Hospital | [facility] | | | | 2001 | Encounter | [facility] EM[facility]ENCY | | | | | | [place] [address] | | | | | | [place] | | | | | | [address] | | | | | | [phone] | | | +--------+ + + + [...] | | | | | | [place] [address] | | | | | | [phone] | | | | | | | | +--------+ + + + + | 11/20/ | Implant | Cardiology | Daljit Singletary, | Remote Device | | 2018 | Monitor | | [address] [facility] | Interrogation | | | | | [place], | (Primary Dx); | | | | | [place] [address] | Presence of | | | | | [phone] | permanent cardiac | | | | [...]
--- OUTSIDE RECORDS SUMMARY | ~2019-11-01 | XMS | Encounter Summary ---
Demographics + + + | Address | [address] | | | [place] [address] | + + + | Home Phone [...] Providers + +------+ + | Care Assistant Press Operator Name | Role | [...] | | CARDIOLOGY [address] | Janeen LIMEHOUSE WORKER [address] | changed his mind) | | | | [place], | [place], | | | | | [place] [address] | [place] [address] | | | | | [phone] | [phone] | | | | | | | [...] W | | | | | | [place], | | | | | | [place] [address] | | | | | | [phone] | | | | | | | | +--------+ + + + + | 11/20/ | Implant | Cardiology | Daljit Singletary, | Remote Device | | 2018 | Monitor | | [address] [facility] | Interrogation | | | | | [place], | (Primary Dx); | | | | | [place] [address] | Presence of | | | | | [phone] | permanent cardiac | | | | [...]
--- OUTSIDE RECORDS SUMMARY | ~2019-11-01 | XMS | Encounter Summary ---
Demographics + + + | Address | [address] | | | [place] [address] | + + + | Home Phone [...] Providers + +------+ + | Care Certified Dialysis Technician Name | Role | Phone | + +------+ + PCP | Unavailable | + +------+ + Encounter Details +--------+ + + + + | Date | Type | Department | Care Team | Description | +--------+ + + + + | 06/14/ | [facility] | [facility] | Kennethshaistatesha Shaistakenneth, | | | 2008 - | Encounter | [facility] | [address] | | | | | [address] | [facility] [place], | | | 06/15/ | | [place] | [place] [address] | | | 2008 | | [address] | [phone] | | | | | [phone] | | | +--------+ + + + [...] | | | | | | [place] [address] | | | | | | [phone] | | | | | | | | +--------+ + + + + | 11/20/ | Implant | Cardiology | Daljit Singletary, | Remote Device | | 2019 | Monitor | | [facility] [address] | Interrogation | | | | | [place], | (Primary Dx); | | | | | [place] [address] | Presence of | | | | | [phone] | permanent cardiac | | | | [...]
--- OUTSIDE RECORDS SUMMARY | ~2019-11-01 | XMS | Encounter Summary ---
Demographics + + + | Address | [id number] [place] [address] | | | [place] [address] | + + + | Home Phone [...] [place] | | | | | [address] | | + + + + + Care Team Providers + +------+ + | Care Education Sales Consultant Name | Role | Phone [...] 2019 | | Center at [facility] | Gastroenterology | Gastroenterology | | | | ILA Tremayne Crane | | | | | | Mailcode: [place] | | | | | | [facility] and | | | | | | [place] [address] | | | | | | [place], [place] | | | | | | [address] | | | | | | [phone] | | | +--------+ + + + [...]
--- OUTSIDE RECORDS SUMMARY | ~2019-11-01 | XMS | Encounter Summary ---
Demographics + + + | Address | [address] | | | [place] [address] | + + + | Home Phone [...] Providers + +------+ + | Care Auto Driver Name | Role | Phone | [...] [address] | | | | [place], | [place], | | | | | [place] [address] | [place] [address] | | | | | [phone] | [phone] | | | | | | | [...] | | | | | | [place] [address] | | | | | | [phone] | | | | | | | | +--------+ + + + + | 11/20/ | Implant | Cardiology | Daljit Singletary, | Remote Device | | 2018 | Monitor | | [place] [address] [place] [address] | Interrogation | | | | | [facility] [place], | (Primary Dx); | | | | | [place] [address] | Presence of | | | | | [phone] | permanent cardiac | | | | [...]
--- OUTSIDE RECORDS SUMMARY | ~2019-11-01 | XMS | Encounter Summary ---
Demographics + + + | Address | [address] | | | [place] [address] | + + + | Home Phone [...] + +------+ + | Care Senior Linux Systems Administrator Name | Role | Phone [...] | | | | Sinoatrial | Jose, VALUE ENGINEER | [address] | | | | | node | [address] | [place], | | | | | dysfunction | [place] | [place] | | | | | (HCC) | [place] | [address] | | | | | Coronary | [address] | Phone: | | | | | artery | Phone: | [phone] | | | | | disease | [phone] | Fax: | | | | | involving | Fax: | [phone] | | | | | barrow | [phone] | | | | | | coronary | | | | | | | artery of | | | | | | | barrow heart | | | | | | [...] | Visit | CARDIOLOGY [address] | VALUE ENGINEER [address] | dysfunction (HCC) | | | | [place], | [place], [place] | with symptomatic | | | | [place] [address] | [address] | bradycardia (Primary | | | | [phone] | | Dx); Coronary | | | | | | artery disease | | | | | | involving barrow | | | | | | coronary artery of | | | | | | barrow heart without | | | | | [...] Preventative health care Coronary artery disease involving barrow coronary artery without angina pectoris Cannabis abuse, [...] 3rd dose, call 911 100 tablet 3 Aspen-3 Fatty Acids (SALMON OIL-1000 PO) CAPS, one [...] scanned Paceart documentation and device PDF in [employer] for interrogation (with progr amming changes) performed [...] to go back in 3 days to [place] for an attempt of ablation under [...] dizziness. He is in class I-II of [place] 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 T here are [...] this chart may have been created with [employer] voice recognition software. Occasi onal wrong-word or [...] | | | | | | [place] [address] | | | | | | [phone] | | | | | | | | +--------+ + + + + | 11/20/ | Implant | Cardiology | Sydni Singletary, | Remote Device | 2018 | Monitor | | [facility] | Interrogation | | | | | [place], | (Primary Dx); | | | | | [place] [address] | Presence of | | | | | [phone] | permanent cardiac | | | | [...] VICTOR HUGO | [facility] | | [place] Room Number SARAH Patient | [facility] | | [id number] Date of Study 06/16/2016 Number | - IMAGING | | Visit Number [id number] | | | Referring Physician HELLBERG JOSE Number Date of 1960 | | | Desk Attendant LUIS FERNANDO DUARTE Age | | | 56 year(s) Interpreting | | | GURJIT TROY | | | Box Estimator SYDNI SINGLETARY, | | | Gender | | | Male Nurse Procedure Type of Study TTE | | | procedure: ECHO Complete. Procedure dateDate: 06/16/2016Start: 10:55 | | | AM Technical Quality: Adequate visualizationStudy Location: Echo | | | LabIndications: CAD ALUTIIQ CORONARY ARTERY 414.01/ I25.10 and | | [...] BARRY Room Number SARAH | | Patient [id number] Date of Study 06/16/2016 Number Visit Number | | [id number] Referring Physician JOSE ARMANDO GARCIA Number | | Date of 1960 Desk Attendant LUIS FERNANDO DUARTE Age | | 56 year(s) Interpreting GURJIT TROY | | Box Estimator SYDNI SINGLETARY, | | Gender Male NurseProcedureType of Study TTE | | procedure: ECHO Complete.Procedure dateDate: 07/26/2016Start: 10:55 AMTechnical Quality: | | Adequate visualizationStudy Location: Echo LabIndications: CAD ALUTIIQ CORONARY ARTERY | | 414.01/ I25.10 and [...] ST. | [address] | [place] | [phone] | | [facility] | | [address] | | | - IMAGING | | [...] | | 2. Coronary artery disease involving barrow coronary artery of | | | barrow heart without angina pectoris I25.10 414.01 ECHO [...] + + | Coronary artery disease involving barrow coronary artery of barrow heart without | | angina pectoris | [...]
--- OUTSIDE RECORDS SUMMARY | ~2019-11-01 | XMS | Encounter Summary ---
Demographics + + + | Address | [address] [place] [address] | | | [place] [address] | + + + | Home Phone [...] [place] | | | | | [address] | | + + + + + Care Team Providers + +------+ + | Care Hunting And Fishing Guide Name | Role | Phone | [...] | | | | ILA Crane | [place], [place] | | | | | Mailcode: [place] | [address] | | | | | for Health and | [phone] | | | | | [facility] | | | | | | [place], [place] | | | | | | [address] | | | | | | [phone] | | | +--------+ + + + [...]
--- OUTSIDE RECORDS SUMMARY | ~2019-11-01 | XMS | Encounter Summary ---
Demographics + + + | Address | [address] | | | [place] [address] | + + + | Home Phone [...] Providers + +------+ + | Care Quality Nurse Name | Role | Phone | [...] + + | 06/06/ | Office | [facility] | [place]via, | Essential | | 2019 | Visit | CARDIOLOGY [address] | PARISA Vernon [address] | hypertension | | | | [place], | [place], | (Primary Dx); | | | | [place] [id number] | [place] [id number] | Sinoatrial node | | | | [phone] | [phone] | dysfunction (HCC) | | | | | | with symptomatic | | | | | | bradycardia; | | | | | | Symptomatic PVCs; | | | | | | Tachycardia; | | | | | | Coronary artery | | | | | | disease involving | | | | | | ohogamiut coronary | | | | | | artery of ohogamiut | | | | | | heart [...] encounter Patient Instructions Patient Instructions Julia Allen, Stamp Mounter - 06/06/2019 2:15 PM PDT1. Take a [...] of -critical coronary artery dise ase involving ohogamiut coronary artery of ohogamiut heart without angina pectoris, essential hype rtension, [...] was seen in the emergency department at [facility] in [place] due to chest pain, no medication changes at that time. On 06/02/2019 he was seen here in the [facility] department with chest pain, irregular heart [...] Preventative health care Coronary artery disease involving ohogamiut coronary artery of ohogamiut heart without angina pectoris Cannabis abuse, daily [...] 3RD DOSE, CALL 911 100 tablet 3 Irvona-3 Fatty Acids (SALMON OIL-1000 PO) CAPS, one [...] 47 06/02/[address] [facility] for emergency department visit o n 06/02/2019 which is summarized in the HPI. RESULTS- I reviewed reports from [facility]: Ct Abdomen Pelvis W Contrast [...] ASSESSMENT: 1. Non-critical Coronary artery disease involving ohogamiut coronary artery of ohogamiut heart [facility] angina pectoris: A.Normal exercise sestamibi stress [...] negative.An abnormal Persantine sestamibi myocardial perfusion imaging marclele dy with a small sized, reversible defect [...] for ventricular arrhythmia performed by Dr Juan iDego Gambino at [facility] on 01/30/2013.Patient had spontaneous PVC'sfr [...] to go back in 3 days to [place] for an attempt of ablation under general [...] a normal stable device function. Estimated remaining [facility] longevity is 3.5 years. [...] visit, or sooner with concerns. Julia Clemente, Stamp Mounter am acting as a scribe on behalf of, and in the presenc e of PARISA Lomas. - Reji Church 06/06/2019 15:10 Janeen Clemente ARNP, personally performed the services described in this documentati on, as scribed in my presence and it is both accurate and complete. -PARISA Lomas 06/06/2019 Portions of this chart may have been created with [employer] voice recognition software. Occasi onal wrong-word or [...] | | | | | | [place] [id number] | | | | | | [phone] | | | | | | | | +--------+ + + + + | 11/20/ | Implant | Cardiology | Sydni Singletary, | Remote Device | | 2018 | Monitor | | MD Sim [address] [place] | Interrogation | | | | | [place], | (Primary Dx); | | | | | [place] [id number] | Presence of | | | | | [phone] | permanent cardiac | | | | [...] MD | | | | | | ([id number]) on 06/06/2019 | | | | | [...] + + | Coronary artery disease involving ohogamiut coronary artery of ohogamiut heart without | | angina pectoris | + + | Syncope, unspecified syncope type | + + | Ascending thoracic aortic aneurysm (HCC) Thoracic aneurysm without mention of rupture | + + | Hyperlipidemia, mixed Mixed hyperlipidemia | + + documented in this encounter
--- OUTSIDE RECORDS SUMMARY | ~2019-11-01 | XMS | Encounter Summary ---
Demographics + + + | Address | [address] | | | [place] [address] | + + + | Home Phone [...] Team Providers + +------+ + | Care Emr Analyst Name | Role | Phone | + +------+ + PCP | Unavailable | + +------+ + Encounter Details +--------+ + + + + | Date | Type | Department | Care Team | Description | +--------+ + + + + | 06/03/ | Hospital | [facility] | | | | 2008 | Encounter | MED CTR EMERGENCY | | | | | | [place] [address] | | | | | | [place] | | | | | | [address] | | | | | | [phone] | | | +--------+ + + + [...] | | | | | | [place] [address] | | | | | | [phone] | | | | | | | | +--------+ + + + + | 11/20/ | Implant | Cardiology | Daljit Singletary, | Remote Device | | 2018 | Monitor | | [address] [facility] | Interrogation | | | | | [place], | (Primary Dx); | | | | | [place] [address] | Presence of | | | | | [phone] | permanent cardiac | | | | [...]
--- OUTSIDE RECORDS SUMMARY | ~2019-11-01 | XMS | Encounter Summary ---
Demographics + + + | Address | [address] | | | [place] [address] | + + + | Home Phone [...] Team Providers + +------+ + | Care Buggy Operator Name | Role | Phone | [...] + + | 06/18/ | Emergency | [facility] | Dom [place], | Cervical pain (neck) | | 2013 | | MED CTR EMERGENCY | MD [address] | (Primary Dx); | | | | CENTER [address] | [place] | Paresthesia and pain | | | | [place], [place] | [address] | of both upper | | | | [address] | | extremities | | | | [phone] | | | +--------+ + + + [...] cannot be sent through Care Everywhere.PARAESTHESIAS ( GERMAN)NECK SPRAIN/STRAIN (GERMAN)documented in this encounter Medications at Time of [...] + + + +---------+ + + | Orland-3 Fatty | CAPS, one capsule by | [...] | | | | | | [place] [address] | | | | | | [phone] | | | | | | | | +--------+ + + + + | 11/20/ | Implant | Cardiology | Daljit Singletary, | Remote Device | | 2018 | Monitor | | MD [address] | Interrogation | | | | | [place], | (Primary Dx); | | | | | [place] [address] | Presence of | | | | | [phone] | permanent cardiac | | | | [...] + | MISCELLANEOUS LAB | | | [phone] | + +---------+ + + | MISCELANIOUS LAB | | | [phone] | + +---------+ + + documented in this encounter Visit Diagnoses + + | Diagnosis | + + | Cervical pain (neck) - Primary Cervicalgia | + + | Paresthesia and pain of both upper extremities Disturbance of skin sensation | + + documented in this encounter
--- OUTSIDE RECORDS SUMMARY | ~2019-11-01 | XMS | Encounter Summary ---
Demographics + + + | Address | [address] | | | [place] [address] | + + + | Home Phone [...] Providers + +------+ + | Care Hat And Cap Sewer Name | Role | Phone | [...] | | | | CENTER [address] | [place], [place] | | | | | [place], [place] | [address] | | | | | [address] | | | | | | [phone] | | | +--------+ + + + [...] new doc you can try over at [facility] documented in this encounter Medications at [...] + + + +---------+ + + | [place]goon-3 Fatty | CAPS, one capsule by | [...] | | | | | | [place], | | | | | | [place] [address] | | | | | | [phone] | | | | | | | | +--------+ + + + + | 11/20/ | Implant | Cardiology | Daljit Singletary, | Remote Device | | 2019 | Monitor | | MD [address] | Interrogation | | | | | [place], | (Primary Dx); | | | | | [place] [address] | Presence of | | | | | [phone] | permanent cardiac | | | | [...]
--- OUTSIDE RECORDS SUMMARY | ~2019-11-01 | XMS | Encounter Summary ---
Demographics + + + | Address | [address] [place] [address] | | | [place] [address] | + + + | Home Phone [...] [place] | | | | | [address] | | + + + + + Care Team Providers + +------+ + | Care Radiation Therapy Technologist Name | Role | Phone | [...] | | | | | TRANSTH[facility] | [place], [place] | for Health | | | | | C | [address] | and Healing, | | | | | ECHOCARDIOGR | Phone: | Building [address] | | | | | AM, ADULT | [phone] | [place], [place] | | | | | | Fax: | [address] | | | | | | [phone] | Phone: | | | | | | | [phone] | +--------+--------+ + + + + Encounter Details +--------+ + + + + | Date | Type | Department | Care Team | Description | +--------+ + + + + | 02/03/ | Hospital | Cardiac | | | | 2010 | Encounter | Non-Invasive Testing | | | | | | at [facility] | | | | | | Tremayne Crane Mailcode: | | | | | | [facility] | | | | | | Health and Healing, | | | | | | [address] | | | | | | [place], [place] | | | | | | [address] | | | | | | [phone] | | | +--------+ + + + [...]
--- OUTSIDE RECORDS SUMMARY | ~2019-11-01 | XMS | Encounter Summary ---
Demographics + + + | Address | [address] | | | [place] [address] | + + + | Home Phone [...] Providers + +------+ + | Care Manager Shipping Name | Role | Phone | + [...] Show | | 2012 | | [facility] | DO [address] | | | | | [address] | [place] | | | | | [place] | [address] | | | | | [address] | | | | | | [phone] | | | +--------+ + + + [...] | | | | | | [place] [address] | | | | | | [phone] | | | | | | | | +--------+ + + + + | 11/20/ | Implant | Cardiology | Daljit Singletary, | Remote Device | | 2018 | Monitor | | MD [address] | Interrogation | | | | | [place], | (Primary Dx); | | | | | [place] [address] | Presence of | | | | | [phone] | permanent cardiac | | | | [...]
--- OUTSIDE RECORDS SUMMARY | ~2019-11-01 | XMS | Encounter Summary ---
Demographics + + + | Address | [address] | | | [place] [address] | + + + | Home Phone [...] Team Providers + +------+ + | Care Developing Machine Operator Name | Role | [...] | RN | | | | | [place], | | | | | | [place] [address] | | | | | | [phone] | | | +--------+ + + + [...] W | | | | | | [place], | | | | | | [place] [address] | | | | | | [phone] | | | | | | | | +--------+ + + + + | 11/20/ | Implant | Cardiology | Daljit Singletary, | Remote Device | | 2019 | Monitor | | [address] | Interrogation | | | | | [place], | (Primary Dx); | | | | | [place] [address] | Presence of | | | | | [phone] | permanent cardiac | | | | [...]
--- OUTSIDE RECORDS SUMMARY | ~2019-11-01 | XMS | Encounter Summary ---
Demographics + + + | Address | [address] | | | [place] [address] | + + + | Home Phone [...] Providers + +------+ + | Care Pigment Pusher Name | Role | Phone | [...] | 10/26/ | Refill | [facility] [place] | Kirk French | Medication Refill | | 2019 | | GASTROENTEROLOGY | MD Brea [address] | | | | | [address] [place] | [address] | | | | | [address] [place], [place] | [place] [address] | | | | | [address] | [phone] | | | | | [phone] | | | +--------+--------+ + + + [...] | | | | | | [place] [address] | | | | | | [phone] | | | | | | | | +--------+ + + + + | 11/20/ | Implant | Cardiology | Daljit Singletary, | Remote Device | | 2018 | Monitor | | MD [address] | Interrogation | | | | | [place], | (Primary Dx); | | | | | [place] [address] | Presence of | | | | | [phone] | permanent cardiac | | | | [...]
--- OUTSIDE RECORDS SUMMARY | ~2019-11-01 | XMS | Encounter Summary ---
Demographics + + + | Address | [address] | | | [place] [address] | + + + | Home Phone [...] Team Providers + +------+ + | Care Correspondence Analyst Name | Role | Phone | + +------+ + | Michael Amanda DO | PCP | | + +------+ + Encounter Details +--------+ + + + + | Date | Type | Department | Care Team | Description | +--------+ + + + + | 09/22/ | Hospital | [facility] | Bahman Gant MD | | | 2012 | Encounter | MED CTR XRAY [address] | [address] [place] | | | | | Monitor [place] | [address] [place], | | | | | [place] [address] | [place] [address] | | | | | [phone] | [phone] | | | | | | | [...] + + + +---------+ + + | Wing[place]-3 Fatty | CAPS, one capsule by | [...] W | | | | | | Monitor [place], | | | | | | [place] [address] | | | | | | [phone] | | | | | | | | +--------+ + + + + | 11/20/ | Implant | Cardiology | Daljit Singletary, | Remote Device | | 2019 | Monitor | | MD [address] | Interrogation | | | | | [place], | (Primary Dx); | | | | | [place] [address] | Presence of | | | | | [phone] | permanent cardiac | | | | [...]
--- OUTSIDE RECORDS SUMMARY | ~2019-11-01 | XMS | Encounter Summary ---
Demographics + + + | Address | [address] | | | [place] [address] | + + + | Home Phone [...] Providers + +------+ + | Care Bulb Planter Name | Role | Phone | [...] Refill | | 2013 | | MEDICINE [place] | DO [address] | | | | | [address] | [place] | | | | | [place] | [address] | | | | | [address] | | | | | | [phone] | | | +--------+--------+ + + + [...] W | | | | | | [place], | | | | | | [place] [address] | | | | | | [phone] | | | | | | | | +--------+ + + + + | 11/20/ | Implant | Cardiology | Daljit Singletary, | Remote Device | | 2018 | Monitor | | [address] [facility] | Interrogation | | | | | [place], | (Primary Dx); | | | | | [place] [address] | Presence of | | | | | [phone] | permanent cardiac | | | | [...]
--- OUTSIDE RECORDS SUMMARY | ~2019-11-01 | XMS | Encounter Summary ---
Demographics + + + | Address | [address] | | | [place] [address] | + + + | Home Phone [...] Team Providers + +------+ + | Care Bacon Skinner Name | Role | Phone | [...] + + | 01/05/ | [facility] | [facility] | [place]via, | Pacemaker - | | 2018 | Visit | CARDIOLOGY [address] | PARISA [place] [address] | [employer] - [id number] | | | | [place], | [place], | [place]planted | | | | [place] [address] | [place] [address] | 06/14/2009 (Primary | | | | [phone] | [phone] | Dx); Chest pain, | | | [...] pain. He went to the ER in [place] because th e NTG didn't relieved the pain. He was diagnosed with bronchitis. Otherwise he has had no ot her symptoms. He has had a good energy level. He tries to stay active. He has joined a [employer] gym and trying to exercise more often. [...] by mouth every evening 90 tablet 0 [facility] Natural [...] 3RD DOSE, CALL 911 100 tablet 3 [place]-3 Fatty Acids (SALMON OIL-1000 PO) CAPS, one [...] 10/18/2017 I reviewed records from [facility] for office visit on 01/2017 whic [...] to go back in 3 days to [place] for an attempt of ablation under general [...] a normal stable device function. Estimated remaining [facility] longevity is 3.5 years.. 5. [...] this chart may have been created with [employer] voice recognition software. Occasi onal wrong-word [...] | | | | | | [place] [address] | | | | | | [phone] | | | | | | | | +--------+ + + + + | 11/20/ | Implant | Cardiology | Sydni Singletary, | Remote Device | | 2019 | Monitor | | MD [address] [facility] | Interrogation | | | | | [place], | (Primary Dx); | | | | | [place] [address] | Presence of | | | | | [phone] | permanent cardiac | | | | [...] SYDNI | | | | | | ([id number]) on 01/06/2018 | | | | | [...]
--- OUTSIDE RECORDS SUMMARY | ~2019-11-01 | XMS | Encounter Summary ---
Demographics + + + | Address | [address] | | | [place] [address] | + + + | Home Phone [...] Providers + +------+ + | Care Skid Strapper Name | Role | Phone | + [...] | (Fax) | | | | | [address] | | | | | | [phone] | | | +--------+ + + + [...] | | | | | | [place] [address] | | | | | | [phone] | | | | | | | | +--------+ + + + + | 11/20/ | Implant | Cardiology | Daljit Singletary, | Remote Device | | 2018 | Monitor | | [address] [facility] | Interrogation | | | | | [place], | (Primary Dx); | | | | | [place] [address] | Presence of | | | | | [phone] | permanent cardiac | | | | [...]
--- OUTSIDE RECORDS SUMMARY | ~2019-11-01 | XMS | Encounter Summary ---
Demographics + + + | Address | [address] | | | [place] [address] | + + + | Home Phone [...] Providers + +------+ + | Care Programming Development Project Manager Name | Role | Phone [...] | type | [address] | [address] | | | | | Procedures | [place] | [place], | | | | | FUP | [place], [place] | [place] [address] | | | | | | [address] | Phone: | | | | | | Phone: | [phone] | | | | | | [phone] | Fax: | | | | | | Fax: | [phone] | | | | | | [phone] | | +--------+ + + + + [...] | | | | CENTER [address] | [address] [place] | (Primary Dx) | | | | [place], [place] | [place] [address] | | | | | [address] | [phone] | | | | | [phone] | | | +--------+ + + + [...] cannot be sent through Care Everywhere.Angina, Stable (Brazilian)documented in this encounter Medications at Time [...] + + + +---------+ + + | Lindsay-3 Fatty | CAPS, one capsule by | [...] | | | | | | [place] [address] | | | | | | [phone] | | | | | | | | +--------+ + + + + | 11/20/ | Implant | Cardiology | Gemini Shaistakenneth, | Remote Device | | 2019 | Monitor | | MD [address] [facility] | Interrogation | | | | | [place], | (Primary Dx); | | | | | [place] [address] | Presence of | | | | | [phone] | permanent cardiac | | | | [...] | | | | ANGELA MARADIAGA MD ([id number]) | | | | | | on [...] | | | | | | [employer] | | | | | [...] | [address] | [place] | [phone] | | [facility] | | [address] | | | - LABORATORY | | [...] [address] | [place] | [phone] | | [facility] | | [address] | | | - LABORATORY | | [...] | | | | | | [employer] | | | | | [...] + | [facility] | [address] | [place] | [phone] | | [facility] | | [address] | | | - LABORATORY | | [...] | | | FILTRATION | mL/min/1.73m2 | [facility] | | | ALGERIAN | RATE,ESTIMATED | | MEDICAL | | | | mL/min/1.00a4Prbs than | | CENTER - | | [...] | 9.3 | 8.3 - 10.5 | [facility] | | | | | mg/dL | [facility] | | | | | | MEDICAL | | | | | | CENTER - | | | | | | LABORATORY | | + + + + + + | Albumin | 4.2 | 3.2 - 5.0 g/dL | [facility] | | | | | | [facility] | | | | | [...] | | ine Ratio | | | [facility] | | | | | [...] [address] | [place] | [phone] | | [facility] | | [address] | | | - LABORATORY | | [...] [address] | [place] | [phone] | | [facility] | | [address] | | | - LABORATORY | | [...] | | | | ANGELA MARADIAGA MD ([id number]) | | | | | | on [...]
--- OUTSIDE RECORDS SUMMARY | ~2019-11-01 | XMS | Encounter Summary ---
Demographics + + + | Address | [address] | | | [place] [address] | + + + | Home Phone [...] Team Providers + +------+ + | Care Picc Nurse Name | Role | Phone | + +------+ + PCP | Unavailable | + +------+ + Encounter Details +--------+ + + + + | Date | Type | Department | Care Team | Description | +--------+ + + + + | 05/02/ [facility] | Jonathan, | | | 2009 | Encounter | MED CTR EMERGENCY | Martell Cr MD [address] | | | | | CENTER [address] | [place] | | | | | [place] | [place] [address] | | | | | [address] | [phone] | | | | | [phone] | | | +--------+ + + + [...] W | | | | | | [place], | | | | | | [place] [address] | | | | | | [phone] | | | | | | | | +--------+ + + + + | 11/20/ | Implant | Cardiology | Daljit Singletary, | Remote Device | | 2019 | Monitor | | MD [address] | Interrogation | | | | | [place], | (Primary Dx); | | | | | [place] [address] | Presence of | | | | | [phone] | permanent cardiac | | | | [...]
--- OUTSIDE RECORDS SUMMARY | ~2019-11-01 | XMS | Encounter Summary ---
Demographics + + + | Address | [address] | | | [place] [address] | + + + | Home Phone [...] + +------+ + | Care Wellness Program Manager Name | Role | Phone [...] [address] | | | | | | [place], [place] | (Fax) | | | | | [address] | | | | | | [phone] | | | +--------+ + + + [...] | | | | | | [place] [address] | | | | | | [phone] | | | | | | | | +--------+ + + + + | 11/20/ | Implant | Cardiology | Daljit Singletary, | Remote Device | | 2018 | Monitor | | [facility] | Interrogation | | | | | [place], | (Primary Dx); | | | | | [place] [address] | Presence of | | | | | [phone] | permanent cardiac | | | | [...]
--- OUTSIDE RECORDS SUMMARY | ~2019-11-01 | XMS | Encounter Summary ---
Demographics + + + | Address | [address] | | | [place] [address] | + + + | Home Phone [...] Providers + +------+ + | Care Account Resolution Specialist Name | Role | Phone [...] + + | 05/15/ | Office | [facility] | Matthew Uriarte | Kidney stones | | 2019 | Visit | [address] | MD Tawanna [address] | (Primary Dx) | | | | [place], [place] | [place], [place] | | | | | [address] | [address] | | | | | [phone] | | | +--------+---------+ + + + [...] Peptic ulcer disease Premature ventricular contraction [facility] health care 06/26/2013 LAST PSA:12/16/2010 [...] CV LHC; Surgeon: Daljit Singletary MD; Location: [facility] CV LAB CARDIAC CATHERIZATION N/A 01/25/2019 Procedure: CV Cor Angio; Surgeon: Daljit Singletary MD; Location: [facility] CV LAB COLONOSCOPY N/A 12/24/2017 Procedure: COLONOSCOPY; Surgeon: Emmanuel Daniel MD; Location: [facility] MEDICAL PROCEDURE UNIT COLONOSCOPY N/A 01/05/2019 Procedure: COLONOSCOPY; Surgeon: Emmanuel Daniel MD; Location: [facility] MEDICAL PROCEDURE UNIT EGD 12/24/2017 HARDWARE [...] Procedure: EGD; Surgeon: Emmanuel Daniel MD; Location: [facility] MEDICAL PROCEDURE UNIT UPPER GASTROINTESTINAL ENDOSCOPY N/A 01/05/2019 Procedure: EGD; Surgeon: Emmanuel Daniel MD; Location: [facility] MEDICAL PROCEDURE UNIT URETEROSCOPY Left 04/13/2019 Procedure: Cystoscopy, Left ureteroscopy with laser lithotripsy, Left ureteral stent place ment; Surgeon: Matthew Uriarte MD; Location: [facility] MAIN OR VASECTOMY Family History: Family [...] 911, Disp: 100 ta blet, Rfl: 3 Hedrick-3 Fatty Acids (SALMON OIL-1000 PO), CAPS, one [...] pH, Urine 8.0 5.0 - 8.0 Specific Merced 1.008 1.001 - 1.030 Protein, Urine Negative [...] have not thoroughly proofread this note, and underwater hunter trapper errors are very likely to occur. CC: [...] W | | | | | | [place], | | | | | | [place] [address] | | | | | | [phone] | | | | | | | | +--------+ + + + + | 11/20/ | Implant | Cardiology | Daljit Singletary, | Remote Device | | 2018 | Monitor | | [facility] | Interrogation | | | | | [place], | (Primary Dx); | | | | | [place] [address] | Presence of | | | | | [phone] | permanent cardiac | | | | [...]
--- OUTSIDE RECORDS SUMMARY | ~2019-11-01 | XMS | Encounter Summary ---
Demographics + + + | Address | [address] | | | [place] [address] | + + + | Home Phone [...] Team Providers + +------+ + | Care Prototype Engineer Name | Role | Phone | [...] Refill | | 2014 | | [facility] [place] | DO [address] | | | | | [address] | [place] | | | | | [place], [place] | [address] | | | | | [address] | | | | | | [phone] | | | +--------+--------+ + + + [...] W | | | | | | [place], | | | | | | [place] [address] | | | | | | [phone] | | | | | | | | +--------+ + + + + | 11/20/ | Implant | Cardiology | Daljit Singletary, | Remote Device | | 2019 | Monitor | | [address] | Interrogation | | | | | [place], | (Primary Dx); | | | | | [place] [address] | Presence of | | | | | [phone] | permanent cardiac | | | | [...]
--- OUTSIDE RECORDS SUMMARY | ~2019-11-01 | XMS | Encounter Summary ---
Demographics + + + | Address | [address] | | | [place] [address] | + + + | Home Phone [...] Providers + +------+ + | Care Patient Liaison Name | Role | Phone | [...] + + | 08/23/ | Telephone | [facility] | AnshujohnsoncherelleDaljit, | Other (edema is | | 2015 | | CARDIOLOGY [address] | MD [address] | blood clots) | | | | [place], | [place], | | | | | [place] [address] | [place] [address] | | | | | [phone] | | | | | | | [...] | | | | | | [place] [address] | | | | | | [phone] | | | | | | | | +--------+ + + + + | 11/20/ | Implant | Cardiology | Daljit Singletary, | Remote Device | | 2018 | Monitor | | MD Sim [facility] | Interrogation | | | | | [place], | (Primary Dx); | | | | | [place] [address] | Presence of | | | | | [phone] | permanent cardiac | | | | [...]
--- OUTSIDE RECORDS SUMMARY | ~2019-11-01 | XMS | Encounter Summary ---
Demographics + + + | Address | [address] | | | [place] [address] | + + + | Home Phone [...] Providers + +------+ + | Care Manager English Name | Role | Phone | + [...] + | 01/30/ | Telephone | [facility] | Daljit Singletary, | Other | | 2019 | | CARDIOLOGY [address] | MD [address] [place] [place] | | | | | [place], | [place], | | | | | [place] [address] | [place] [address] | | | | | [phone] | [phone] | | | | | | | [...] W | | | | | | [place], | | | | | | [place] [address] | | | | | | [phone] | | | | | | | | +--------+ + + + + | 11/20/ | Implant | Cardiology | Daljit Singletary, | Remote Device | | 2018 | Monitor | | MD [address] [place] | Interrogation | | | | | [place], | (Primary Dx); | | | | | [place] [address] | Presence of | | | | | [phone] | permanent cardiac | | | | [...] 05/02/2019, Expires: | | | | | [place] coronary | 01/30/2020 | | | | [...] 05/02/2019, Expires: | | | | | [place] coronary | 01/31/2020 | | | | [...] oreilles heart without | | angina pectoris - Primary | + + | Hyperlipidemia, mixed Mixed hyperlipidemia | + + documented in this encounter"
--- OUTSIDE RECORDS SUMMARY | ~2019-11-01 | XMS | Encounter Summary ---
Demographics + + + | Address | [address] | | | [place] [address] | + + + | Home Phone [...] + + | 09/12/ | Hospital | [facility] | | | | 1993 | Encounter | MED CTR EMERGENCY | | | | | | CENTER [address] | | | | | | [place] | | | | | | [address] | | | | | | [phone] | | | +--------+ + + + [...] | | | | | | [place] [address] | | | | | | [phone] | | | | | | | | +--------+ + + + + | 11/20/ | Implant | Cardiology | Daljit Singletary, | Remote Device | | 2018 | Monitor | | [address] [facility] | Interrogation | | | | | [place], | (Primary Dx); | | | | | [place] [address] | Presence of | | | | | [phone] | permanent cardiac | | | | [...]
--- OUTSIDE RECORDS SUMMARY | ~2019-11-01 | XMS | Encounter Summary ---
Demographics + + + | Address | [address] | | | [place] [address] | + + + | Home Phone [...] Providers + +------+ + | Care Insurance Account Executive Name | Role | Phone | + +------+ + PCP | Unavailable | + +------+ + Encounter Details +--------+ + + + + | Date | Type | Department | Care Team | Description | +--------+ + + + + | 06/17/ | Hospital | [facility] | | | | 2008 | Encounter | MED CTR EMERGENCY | | | | | | [place] [address] | | | | | | [place] | | | | | | [address] | | | | | | [phone] | | | +--------+ + + + [...] | | | | | | [place] [address] | | | | | | [phone] | | | | | | | | +--------+ + + + + | 11/20/ | Implant | Cardiology | Daljit Singletary, | Remote Device | | 2018 | Monitor | | [facility] | Interrogation | | | | | [place], | (Primary Dx); | | | | | [place] [address] | Presence of | | | | | [phone] | permanent cardiac | | | | [...]
--- OUTSIDE RECORDS SUMMARY | ~2019-11-01 | XMS | Encounter Summary ---
Demographics + + + | Address | [address] | | | [place] [address] | + + + | Home Phone [...] Providers + +------+ + | Care Rotary Envelope Machine Operator Name | Role | [...] + | 11/26/ | Telephone | [facility] | Silvia, | Appointment (Needs | | 2017 | | CARDIOLOGY [address] | [place] [address] | rescheduled) | | | | [place], | [place], | | | | | [place] [address] | [place] [address] | | | | | [phone] | [phone] | | | | | | | [...] W | | | | | | [place], | | | | | | [place] [address] | | | | | | [phone] | | | | | | | | +--------+ + + + + | 11/20/ | Implant | Cardiology | Daljit Singletary, | Remote Device | | 2018 | Monitor | | [address] | Interrogation | | | | | [place], | (Primary Dx); | | | | | [place] [address] | Presence of | | | | | [phone] | permanent cardiac | | | | [...]
--- OUTSIDE RECORDS SUMMARY | ~2019-11-01 | XMS | Encounter Summary ---
Demographics + + + | Address | [address] | | | [place] [address] | + + + | Home Phone [...] + | 07/21/ | Hospital | [facility] | Daljit Singletary, | | | 2018 | Encounter | MED CTR NUCLEAR | MD [address] | | | | | MEDICINE [address] | [address] [place], | | | | | [place] | [place] [address] | | | | | [place] [address] | [phone] | | | | | [phone] | | | +--------+ + + + [...] + + + +---------+ + + | Hunters-3 Fatty | CAPS, one capsule by | [...] | | | | | | [place] [address] | | | | | | [phone] | | | | | | | | +--------+ + + + + | 11/20/ | Implant | Cardiology | Daljit Singletary, | Remote Device | | 2019 | Monitor | | [address] [facility] | Interrogation | | | | | [place], | (Primary Dx); | | | | | [place] [address] | Presence of | | | | | [phone] | permanent cardiac | | | | [...] | | | | Starting [facility] 07/21/18 at 1224, For | | | | | | | 1 dose, Nuclear Medicine | | | | | | + +--------+ + +------+------+ +---+---+ | | | +---+---+ documented in this encounter"
--- OUTSIDE RECORDS SUMMARY | ~2019-11-01 | XMS | Encounter Summary ---
Demographics + + + | Address | [address] | | | [place] [address] | + + + | Home Phone [...] Team Providers + +------+ + | Care Polishing Machine Operator Name | Role | Phone [...] 2014 | | CARDIOLOGY [address] | FILTER OPERATOR [address] [place] | | | | | [place], | [place], [place] | | | | | [place] [address] | [address] | | | | | [phone] | | | +--------+ + + + [...] | | | | | | [place] [address] | | | | | | [phone] | | | | | | | | +--------+ + + + + | 11/20/ | Implant | Cardiology | Daljit Singletary, | Remote Device | | 2018 | Monitor | | MD [address] | Interrogation | | | | | [address], | (Primary Dx); | | | | | [place] [address] | Presence of | | | | | [phone] | permanent cardiac | | | | [...]
--- OUTSIDE RECORDS SUMMARY | ~2019-11-01 | XMS | Encounter Summary ---
Demographics + + + | Address | [address] | | | [place] [address] | + + + | Home Phone [...] Providers + +------+ + | Care Rn Post Partum Name | Role | Phone | + [...] + | 01/30/ | Telephone | [facility] | Daljit Singletary, | Other | | 2019 | | CARDIOLOGY [address] | MD [address] | | | | | [place], | [place], | | | | | [place] [address] | [place] [address] | | | | | [phone] | [phone] | | | | | | | [...] W | | | | | | [place], | | | | | | [place] [address] | | | | | | [phone] | | | | | | | | +--------+ + + + + | 11/20/ | Implant | Cardiology | Daljit Singletary, | Remote Device | | 2018 | Monitor | | MD [address] | Interrogation | | | | | [place], | (Primary Dx); | | | | | [place] [address] | Presence of | | | | | [phone] | permanent cardiac | | | | [...] 05/02/2019, Expires: | | | | | quile[place] coronary | 01/30/2020 | | | | [...] 05/02/2019, Expires: | | | | | [place] coronary | 01/31/2020 | | | | [...] quileute heart without | | angina pectoris - Primary | + + | Hyperlipidemia, mixed Mixed hyperlipidemia | + + documented in this encounter"
--- OUTSIDE RECORDS SUMMARY | ~2019-11-01 | XMS | Encounter Summary ---
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 This means it will be harder [...] or, difficulty with vision, speech or walking [address]64-[address] [place] [address]. All rights reserve d. This information is [...] from his pain clinic visit in the [facility] on Wednesday or he developed double [...] double vision. He was evaluated by Dr Van Zandt and had a normal eye exam, nor [...] tablet by mouth Daily. 30 tablet 6 Sheridan-3 Fatty Acids (SALMON OIL-1000 PO) CAPS, [...] | | | | | | [place] [address] | | | | | | [phone] | | | | | | | | +--------+ + + + + | 11/20/ | Implant | Cardiology | Daljit Singletary, | Remote Device | | 2018 | Monitor | | MD [address] | Interrogation | | | | | [place], | (Primary Dx); | | | | | [place] [address] | Presence of | | | | | [phone] | permanent cardiac | | | | [...] + | [facility] | [address] | [place] | [phone] | | [facility] | | [address] | | | - LABORATORY | | | | + + + + + | [facility] | [address] | [place] | | | [facility] | | [address] | | | - LABORATORY | | [...] + | [facility] | [address] | [place] | [phone] | | [facility] | | [address] | | | - LABORATORY | | | | + + + + + | [facility] | [address] | [place] | | | [facility] | | [address] | | | - LABORATORY | | [...] [facility] | | | | [place] [facility] | | MEDICAL | | | [...] [address] | [place] | [phone] | | [facility] | | [address] | | | - LABORATORY | | | | + + + + + | [facility] | [address] | [place], [place] | | | [facility] | | [address] | | | - LABORATORY | | | | + + + + + documented in this encounter Visit Diagnoses + + | Diagnosis | + + | Diplopia - Primary | + + | Symptomatic PVCs Other premature beats | + + | Hypertension Unspecified essential hypertension | + + documented in this encounter
--- OUTSIDE RECORDS SUMMARY | ~2019-11-01 | XMS | Encounter Summary ---
Demographics + + + | Address | [address] | | | [place] [address] | + + + | Home Phone [...] Team Providers + +------+ + | Care Periodicals Clerk Name | Role | Phone | [...] + | 12/23/ | Telephone | [facility] | Silvia, | Lab Order (due for | | 2017 | | CARDIOLOGY [address] | Janeen, SALES REPRESENTATIVE PRINTING PAPER [address] | fasting labs) | | | | [place], | [place], | | | | | [place] [address] | [place] [address] | | | | | [phone] | [phone] | | | | | | | [...] [place], | | | | | | [place] [address] | | | | | | [phone] | | | | | | | | +--------+ + + + + | 11/20/ | Implant | Cardiology | Daljit Singletary, | Remote Device | 2018 | Monitor | | [facility] | Interrogation | | | | | [place], | (Primary Dx); | | | | | [place] [address] | Presence of | | | | | [phone] | permanent cardiac | | | | [...]
--- OUTSIDE RECORDS SUMMARY | ~2019-11-01 | XMS | Encounter Summary ---
Demographics + + + | Address | [address] | | | [place] [address] | + + + | Home Phone [...] + +------+ + | Care Supply Chain Coordinator Name | Role | Phone | [...] | | | | exertion | | [place] | | | | | Chest pain | | [place], [place] | | | | | on exertion | | [address] | | | | | | | Phone: | | | | | | | [phone] | | | | | | | Fax: | | | | | | | [phone] | +--------+--------+ + + + + Encounter Details +--------+ + + + + | Date | Type | Department | Care Team | Description | +--------+ + + + + | 04/27/ | Emergency | [facility] | Martell Hart | Chest pain on | | 2014 - | | MED CTR MEDICAL | Sanjay Palacios MD | exertion (Primary | | | | [address] [place] | [address] | Dx); Dyspnea on | | 03/20/ | | [place] [address] | [place], [place] | exertion; Essential | | 2014 | | [phone] | [address] | hypertension; Acute | | | | | | chest pain; | | | | | Parth Kraft, | Dizziness, | | | | | [address] | nonspecific; Mixed | | | | | [place], [place] | anxiety depressive | | | | | [address] | disorder; PUD | | | | | [phone] | (peptic ulcer | | | | [...] might be different f rom the original. [facility] DISCHARGE SUMMARY Pt. Name/Age/: Moe Sanchez [...] 911 aka: NITROSTAT ONE TOUCH DELICA LANCETS [facility] Check glucose as needed for hypoglycemia [...] Daily. to reduce urinary frequency - Lot #[id number], exp 07/2016 aka: RAPAFLO UNCODED MEDICATION - [...] hospital follow up Contact information: [address] [address] Call PARISA Russell. Specialty: Nurse Practitioner Why: As needed Contact information: [address] [place] [address] Condition: Patient being discharged with condition improved. Diet: Heart healthy, avoid acidic drinks and foods, spicy foods, too much coffee. Greater than 30 minutes were spent on discharge and coordination of post-hospital care. Electronically signed by: Thierry Fregoso DO, 03/20/2015 11:22 [facility] Portions of this chart may have been created with [employer] ([employer]) voice recognition software. Occasi onal wrong-word or [...] afford the prescribed medication, you can try qalm-fxh-vmgljbl acid blockers, such as Pepcid AC, Tagamet, [...] or as directed by your healthcare provider [id number] [employer]. [address] [place] [address]. All righ ts reserved. This information is [...] + + + +---------+ + + | Cushing-3 Fatty | CAPS, one capsule by | [...] | | | | | | | #[id number], exp 07/2016 | | | | | [...] DO - 03/19/2015 10:09 PM PDT . [facility] PROGRESS NOTE Patient: Moe Sanchez : 1960: Age: 55 y.o. MedRec: [id number] PCP: Kirk French Admission date: 03/18/2015 Hospital [...] 1708 03/18/15 1528 TROPONINI <0.01 <0.01 0.01 [facility] ECHOCARDIOGRAM REPORT STUDY DATE: 03/19/2015 PATIENT [...] changes. No results for input(s): PHART, PO2ART, SDR2NKJ, PTT5LCS, BEART, E4HYMQHG in the last 168 h ours. No results for input(s): SPECSOURCE, PHPOCB, HCO3, TCO2, BEART, BE, JIXH9IXL in the last 16 8 hours. Invalid input(s): QYQHT3IL, KYND9HO Point of care glucose: No results for [...] minutes today. Thierry Fregoso DO 03/19/2015 22:09 [facility] Portions of this chart may have been created with [employer] ([employer]) voice recognition software. Occasi onal wrong-word or sound-alike substitutions may have occurred due to the inherent granger itations of voice recognition software. Please read the chart carefully and recognize, using context, where these substitutions have occurred Belén Cho RN - 03/19/2015 11:03 AM [id number] Report given to Marlen morejon who is [...] | | | | | | [place], | | | | | | [place] [address] | | | | | | [phone] | | | | | | | | +--------+ + + + + | 11/20/ | Implant | Cardiology | Daljit Singletary, | Remote Device | | 2018 | Monitor | | [address] [facility] | Interrogation | | | | | [place], | (Primary Dx); | | | | | [place] [address] | Presence of | | | | | [phone] | permanent cardiac | | | | [...] Performed At | + + + | [facility] ECHOCARDIOGRAM REPORT | | | STUDY [...] | | Signed by: Daljit Singletary MD [facility] 03/19/2015 15:44 | | | Biometric Fingerprinting Technician: Dewey Valdez RDMS | | + + [...] [address] | [place] | [phone] | | [facility] | | [address] | | | - LABORATORY | | [...] | mL/min/1.73m2 | MICHELLE | | | MALTESE | RATE,ESTIMATED | | MEDICAL | | | | mL/min/1.15s9Flco than | | CENTER - | | [...] [address] | [place] | [phone] | | [facility] | | [address] | | | - LABORATORY | | [...] [address] | [place] | [phone] | | [facility] | | [address] | | | - LABORATORY | | [...] ST. | [address] | [place] | [phone] | | [facility] | | [address] | | | - LABORATORY | | [...] [address] | [place] | [phone] | | [facility] | | [address] | | | - LABORATORY | | [...] [address] | [place] | [phone] | | [facility] | | [address] | | | - LABORATORY | | [...] | + + + + + | [facility] | [address] | [place] | [phone] | | [facility] | | [address] | | | - LABORATORY | | [...] + | [facility] | [address] | [place] | [phone] | | [facility] | | [address] | | | - LABORATORY | | [...] + | [facility] | [address] | [place] | [phone] | | [facility] | | [address] | | | - LABORATORY | | [...] [address] | [place] | [phone] | | [facility] | | [address] | | | - LABORATORY | | [...] | | | FILTRATION | mL/min/1.73m2 | [facility] | | | [place] | RATE,ESTIMATED | | MEDICAL | | | | mL/min/1.89b7Hfrn than | | CENTER - | | [...] + | [facility] | [address] | [place] | [phone] | | [facility] | | [address] | | | - LABORATORY | | [...] | Monocytes | | K/uL | ST. [facility] | | | | [...] [address] | [place] | [phone] | | [facility] | | [address] | | | - LABORATORY | | [...]
--- OUTSIDE RECORDS SUMMARY | ~2019-11-01 | XMS | Encounter Summary ---
Demographics + + + | Address | [address] | | | [place] [address] | + + + | Home Phone [...] Providers + +------+ + | Care Chief Optometry Service Name | Role | Phone | + +------+ + PCP | Unavailable | + +------+ + Encounter Details +--------+ + + + + | Date | Type | Department | Care Team | Description | +--------+ + + + + | 08/26/ | Hospital | [facility] | | | | 2009 | Encounter | MED CTR LABORATORY | | | | | | [address] [place] | | | | | | [place] | | | | | | [address] | | | | | | [phone] | | | +--------+ + + + [...] | | | | | | [place] [address] | | | | | | [phone] | | | | | | | | +--------+ + + + + | 11/20/ | Implant | Cardiology | Daljit Singletary, | Remote Device | | 2018 | Monitor | | [facility] | Interrogation | | | | | [place], | (Primary Dx); | | | | | [place] [address] | Presence of | | | | | [phone] | permanent cardiac | | | | [...]
--- OUTSIDE RECORDS SUMMARY | ~2019-11-01 | XMS | Encounter Summary ---
Demographics + + + | Address | [address] | | | [place] [address] | + + + | Home Phone [...] Team Providers + +------+ + | Care Co Chairman Name | Role | Phone | [...] fasting labs prior | | | | [place], | [place], | to appt) | | | | [place] [address] | [place] [address] | | | | | [phone] | [phone] | | | | | | | [...] | | | | | | [place] [address] | | | | | | [phone] | | | | | | | | +--------+ + + + + | 11/20/ | Implant | Cardiology | Daljit Singletary, | Remote Device | | 2018 | Monitor | | MD Chiquis Oro | Interrogation | | | | | [place], | (Primary Dx); | | | | | [place] [address] | Presence of | | | | | [phone] | permanent cardiac | | | | [...]
--- OUTSIDE RECORDS SUMMARY | ~2019-11-01 | XMS | Encounter Summary ---
Demographics + + + | Address | [address] | | | [place] [address] | + + + | Home Phone [...] Providers + +------+ + | Care Development Disability Specialist Name | Role | Phone | + +------+ + PCP | Unavailable | + +------+ + Encounter Details +--------+ + + + + | Date | Type | Department | Care Team | Description | +--------+ + + + + | 01/27/ | [facility] | [facility] | Jonathan, | | | 2008 | Encounter | MED CTR EMERGENCY | Martell Cr MD [address] | | | | | CENTER [address] | [place] | | | | | [place] | [place] [address] | | | | | [address] | [phone] | | | | | [phone] | | | +--------+ + + + [...] | | | | | | [place], | | | | | | [place] [address] | | | | | | [phone] | | | | | | | | +--------+ + + + + | 11/20/ | Implant | Cardiology | Daljit Singletary, | Remote Device | | 2019 | Monitor | | MD Chiquis Oro | Interrogation | | | | | [facility] [place], | (Primary Dx); | | | | | [place] [address] | Presence of | | | | | [phone] | permanent cardiac | | | | [...]
--- OUTSIDE RECORDS SUMMARY | ~2019-11-01 | XMS | Encounter Summary ---
Demographics + + + | Address | [address] | | | [place] [address] | + + + | Home Phone [...] Providers + +------+ + | Care Medical Apparatus Model Maker Name | Role | Phone [...] [place] | | | | | | [address] | | | | | | [phone] | | | +--------+ + + + [...] | | | | | [place], | | | | | | [place] [address] | | | | | | [phone] | | | | | | | | +--------+ + + + + | 11/20/ | Implant | Cardiology | Daljit Singletary, | Remote Device | | 2018 | Monitor | | [facility] | Interrogation | | | | | [place], | (Primary Dx); | | | | | [place] [address] | Presence of | | | | | [phone] | permanent cardiac | | | | [...]
--- OUTSIDE RECORDS SUMMARY | ~2019-11-01 | XMS | Encounter Summary ---
Demographics + + + | Address | [address] | | | [place] [address] | + + + | Home Phone [...] Team Providers + +------+ + | Care Melting Supervisor Name | Role | Phone | + +------+ + PCP | Unavailable | + +------+ + Encounter Details +--------+ + + + + | Date | Type | Department | Care Team | Description | +--------+ + + + + | 09/08/ | [facility] | [facility] | Naresh Mckeon | | | 1998 | Encounter | MED CTR SLEEP | MD Chaya [address] | | | | | CENTER [address] | [place] | | | | | [place] | [place] [address] | | | | | [address] | [phone] | | | | | [phone] | | | +--------+ + + + [...] | | | | | | [place] [address] | | | | | | [phone] | | | | | | | | +--------+ + + + + | 11/20/ | Implant | Cardiology | Daljit Singletary, | Remote Device | | 2019 | Monitor | | MD Chiquis Oro | Interrogation | | | | | [facility] [place] [place], | (Primary Dx); | | | | | [place] [address] | Presence of | | | | | [phone] | permanent cardiac | | | | [...]
--- OUTSIDE RECORDS SUMMARY | ~2019-11-01 | XMS | Encounter Summary ---
Demographics + + + | Address | [address] | | | [place] [address] | + + + | Home Phone [...] Providers + +------+ + | Care Music Instructor Name | Role | Phone | [...] [address] | | | | | [place], | [place], | | | | | [place] [address] | [place] [address] | | | | | [phone] | [phone] | | | | | | | [...] | | | | | | [place] [address] | | | | | | [phone] | | | | | | | | +--------+ + + + + | 11/20/ | Implant | Cardiology | Daljit Singletary, | Remote Device | | 2018 | Monitor | | MD [address] | Interrogation | | | | | [address] [place], | (Primary Dx); | | | | | [place] [address] | Presence of | | | | | [phone] | permanent cardiac | | | | [...]
--- OUTSIDE RECORDS SUMMARY | ~2019-11-01 | XMS | Encounter Summary ---
Demographics + + + | Address | [address] | | | [place] [address] | + + + | Home Phone [...] Team Providers + +------+ + | Care Reporting Developer Name | Role | Phone | [...] [place] | | | | | [address], [place] | [address] | | | | | [address] | | | | | | [phone] | | | +--------+ + + + [...] W | | | | | | [place], | | | | | | [place] [address] | | | | | | [phone] | | | | | | | | +--------+ + + + + | 11/20/ | Implant | Cardiology | Daljit Singletary, | Remote Device | | 2018 | Monitor | | [facility] | Interrogation | | | | | [place], | (Primary Dx); | | | | | [place] [address] | Presence of | | | | | [phone] | permanent cardiac | | | | [...]
--- OUTSIDE RECORDS SUMMARY | ~2019-11-01 | XMS | Encounter Summary ---
Demographics + + + | Address | [address] | | | [place] [address] | + + + | Home Phone [...] Team Providers + +------+ + | Care Floater Operator Name | Role | Phone | [...] | | PVCs | [place]ISA [place] | [address] | | | | | Procedures | [address] | [address] | | | | | [place] OFFICE | [place] | [place] | | | | | CONSULTATION | [place], | [address] Phone: | | | | | NEW/ESTAB | [place] | [phone] | | | | | PATIENT 40 | [address] | Fax: | | | | | MIN | Phone: | [phone] | | | | | | [phone] | | | | | | | Fax: | | | | | | | [phone] | | +--------+--------+ + + + + Encounter Details +--------+---------+ + + + | Date | Type | Department | Care Team | Description | +--------+---------+ + + + | 11/30/ | Office | [facility] | Jay Gambino MD | Symptomatic PVCs | | 2015 | Visit | [facility] [place] | [address] | (Primary Dx) | | | | [address] | [address] [place], | | | | | [facility] [address] [place] | [place] [address] | | | | | [address] | [phone] | | | | | [phone] | | | +--------+---------+ + + + [...] Gambino MD - 11/30/2014 5:37 PM PST [facility] [address] [place] [address] Patient Name: Moe Sanchez Date: 1960 Date [...] luz marcos as needed for Chest pain. Winifred-3 Fatty Acids (SALMON OIL-1000 PO) CAPS, one [...] were not detected in the editing p Whole Opticsess. Should you have any questions or concerns, [...] | | | | | | [place], | | | | | | [place] [address] | | | | | | [phone] | | | | | | | | +--------+ + + + + | 11/20/ | Implant | Cardiology | Daljit Singletary, | Remote Device | | 2018 | Monitor | | MD Sim [address] | Interrogation | | | | | [facility], | (Primary Dx); | | | | | [place] [address] | Presence of | | | | | [phone] | permanent cardiac | | | | [...]
--- OUTSIDE RECORDS SUMMARY | ~2019-11-01 | XMS | Encounter Summary ---
Demographics + + + | Address | [address] | | | [place] [address] | + + + | Home Phone [...] Providers + +------+ + | Care Show Host Or Hostess Name | Role | Phone | + +------+ + PCP | Unavailable | + +------+ + Encounter Details +--------+ + + + + | Date | Type | Department | Care Team | Description | +--------+ + + + + | 10/19/ | Hospital | [facility] | | | | 1992 | Encounter | MED CTR EMERGENCY | | | | | | CENTER [address] | | | | | | [place] | | | | | | [address] | | | | | | [phone] | | | +--------+ + + + [...] | | | | | | [place] [address] | | | | | | [phone] | | | | | | | | +--------+ + + + + | 11/20/ | Implant | Cardiology | Daljit Singletary, | Remote Device | | 2018 | Monitor | | [facility] | Interrogation | | | | | [facility], | (Primary Dx); | | | | | [place] [address] | Presence of | | | | | [phone] | permanent cardiac | | | | [...]
--- OUTSIDE RECORDS SUMMARY | ~2019-11-01 | XMS | Encounter Summary ---
Demographics + + + | Address | [address] | | | [place] [address] | + + + | Home Phone [...] Team Providers + +------+ + | Care Member Of The Legislative Assembly Name | Role | Phone | [...] Provider Unknown | | | | | [place], [place] | [phone] | | | | | [address] | | | | | | [phone] | | | +--------+ + + + [...] | | | | | | [place], | | | | | | [place] [address] | | | | | | [phone] | | | | | | | | +--------+ + + + + | 11/20/ | Implant | Cardiology | Daljit Singletary, | Remote Device | | 2018 | Monitor | | MD Sim [place] | Interrogation | | | | | [place], | (Primary Dx); | | | | | [place] [address] | Presence of | | | | | [phone] | permanent cardiac | | | | [...]
--- OUTSIDE RECORDS SUMMARY | ~2019-11-01 | XMS | Encounter Summary ---
Demographics + + + | Address | [address] | | | [place] [address] | + + + | Home Phone [...] | ER FUP | [address] | [address] | | | | | Procedures | [place], | [place], | | | | | [place] | [place] [address] | [place] [address] | | | | | | Phone: | Phone: | | | | | | [phone] | [phone] | | | | | | Fax: | Fax: | | | | | | [phone] | [phone] | +--------+--------+ + + + + Encounter Details +--------+---------+ + + + | Date | Type | Department | Care Team | Description | +--------+---------+ + + + | 02/11/ | Office | [facility] [place] | Sil[place], | Coronary artery | | 2016 | Visit | CARDIOLOGY [address] | Janeen LEGAL ACTIVITY ADJUDICATOR [address] | disease involving | | | | [place], | [place], | sitka coronary | | | | [place] [address] | [place] [address] | artery of sitka | | | | [phone] | [phone] | heart without angina | | | [...] of non-critical coronary artery d isease involving sitka coronary artery of sitka heart without angina pectoris, essential h ypertension, [...] has been doing well otherwise than the [place] iety. MEDICAL, SURGICAL, AND PERSONAL HISTORY Past [...] Preventative health care Coronary artery disease involving sitka coronary artery of sitka heart without angina pectoris Cannabis abuse, daily [...] 3RD DOSE, CALL 911 100 tablet 3 Huron-3 Fatty Acids (SALMON OIL-1000 PO) CAPS, one [...] was found Confirmed by ANGELA MARADIAGA MD ([id number]) on 01/25/2017 6:45:26 AM LAB RESULTS reviewed [...] I reviewed records from [facility] for emergency department visit o n 01/2017 which is summarized in the HPI. Above data and testing is reviewed this visit; testing below is historical data unless othe rwise specified. ASSESSMENT: 1. Essential hypertension with goal blood pressure less than 130/80: A. Today it has been well controlled 110 mmHg. He is in class I of t he [place] 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 On physical examination there are no signs of fluid overload. 2. Non-critical Coronary artery disease involving sitka coronary a rtery of sitka heart without angina pectoris: A. Normal exercise [...] ventricular arrhythmia performed by Dr. Gmabino at [facility] on 01/30/2013. [...] to go back in 3 days to [place] for an attempt of ablation under general [...] stable device function. Estimated remaining [facility] longevity is 3.5 years.. 5. Lightheadedness [...] this chart may have been created with Sanguine voice recognition software. Occasi onal wrong-word or [...] | | | | | | [place] [address] | | | | | | [phone] | | | | | | | | +--------+ + + + + | 11/20/ | Implant | Cardiology | Daljit Singletary, | Remote Device | | 2019 | Monitor | | [facility] | Interrogation | | | | | [place], | (Primary Dx); | | | | | [place] [address] | Presence of | | | | | [phone] | permanent cardiac | | | | [...] + + | Coronary artery disease involving sitka coronary artery of sitka heart without | | angina pectoris - Primary | + + | Essential hypertension with goal blood pressure less than 130/80 | + + | Hyperlipidemia, mixed Mixed hyperlipidemia | + + documented in this encounter
--- OUTSIDE RECORDS SUMMARY | ~2019-11-01 | XMS | Encounter Summary ---
Demographics + + + | Address | [address] | | | [place] [address] | + + + | Home Phone [...] +------+ + | Care Honing Machine Operator Semiautomatic Name | Role | Phone | + [...] | | | | CENTER [address] | [place], [place] | Anxiety | | | | [place], [place] | [address] | | | | | [address] | | | | | | [phone] | | | +--------+ + + + [...] + + + +---------+ + + | Murtaugh-3 Fatty | CAPS, one capsule by | [...] | | | | | | [place], | | | | | | [place] [address] | | | | | | [phone] | | | | | | | | +--------+ + + + + | 11/20/ | Implant | Cardiology | Daljit Singletary, | Remote Device | | 2018 | Monitor | | MD Sim [facility] | Interrogation | | | | | [place], | (Primary Dx); | | | | | [place] [address] | Presence of | | | | | [phone] | permanent cardiac | | | | [...] the uneventful IV administration of 80 mL [id number] contrast. Timing of | | contrast bolus [...] + | MISCELLANEOUS LAB | | | [phone] | + +---------+ + + | MISCELANIOUS LAB | | | [phone] | + +---------+ + + Troponin I [...] | [facility] | [address] | [place], [place] | [phone] | | [facility] | | [address] | | | - LABORATORY | | | | + + + + + | [facility] | [address] | [place], [place] | | | [facility] | | [address] | | | - LABORATORY | | [...] 12 | 7 - 18 mg/dL | [facility] | | | | | | [facility] | | | | | | MEDICAL | | | | | | CENTER - | | | | | | LABORATORY | | + + + + + + | Creatinine | 0.89 | 0.60 - 1.30 | [facility] | | | | | mg/dL | [facility] | | | | | | MEDICAL | | | | | | CENTER - | | | | | | LABORATORY | | + + + + + + | eGFR if not | >60Comment: GLOMERULAR | >=60 | [facility] | | | | FILTRATION | mL/min/1.73m2 | [facility] | | | [place]AN | RATE,ESTIMATED | | MEDICAL | | | | mL/min/1.95u1Oxzj than | | CENTER - | | [...] | [facility] | [address] | [place] | [phone] | | [facility] | | [address] | | | - LABORATORY | | | | + + + + + | [facility] | [address] | [place] | | | [facility] | | [address] | | | - LABORATORY | | [...] | [facility] | [address] | [place] | [phone] | | [facility] | | [address] | | | - LABORATORY | | | | + + + + + | [facility] | [address] | [place] | | | [facility] | | [address] | | | - LABORATORY | | [...]
--- OUTSIDE RECORDS SUMMARY | ~2019-11-01 | XMS | Encounter Summary ---
Demographics + + + | Address | [address] [place] [address] | | | [place] [address] | + + + | Home Phone [...] [place] | | | | | [address] | | + + + + + Care Team Providers + +------+ + | Care Flight Control Manager Name | Role | Phone [...] | | | | | [facility] | [place], [place] | for Health | | | | | C | [address] | and Healing, | | | | | ECHOCARDIOGR | Phone: | Building [address] | | | | | AM, ADULT | [phone] | [place], [place] | | | | | | Fax: | [address] | | | | | | [phone] | Phone: | | | | | | | [phone] | +--------+--------+ + + + + Reason [...] | | | | | | [place] [address] | | | | | | | Phone: | | | | | | | [phone] | | | | | | | Fax: | | | | | | | [phone] | | +--------+--------+ + + + + Encounter Details +--------+---------+ + + + | Date | Type | Department | Care Team | Description | +--------+---------+ + + + | 02/03/ | Office | Cardiology General | Arlette Drew, | Chest pain (Primary | | 2010 | Visit | at [facility] [address] | MD | Dx); Bradycardia; | | | | [address] Mailcode: | | Pacemaker | | | | [address] [facility] | | | | | | Health and Healing, | | | | | | | | | | | | Floor [place], [place] | | | | | | [address] | | | | | | [phone] | | | +--------+---------+ + + + [...] per Dr. Drew's note. Farooq Jamil DO Fuel Storage Technician Clinical well control instructor/ Division of Cardiovascular Medicine Yajaira Borges, [place] - 02/09/2011 12:59 PM PDT PACEMAKER HISTORY Primary Care Provider: Darion Holden DO Tool Rental Technician: Arlette Drew MD Moe Sanchez is a [...] chamber permanent pacemaker implantation on 06/14/09 in [place], Chronic smoker, mild DIDIER, bip olar disorder with anxiety who presents for second opinion regarding his syncopal episodes. Pt. started noticing dizzy spells and episodes of syncope about 3 years ago , pacemaker was put at the recommendation of Tool Rental Technician Dr. Singletary from [place]. [place]. Pt. states lala bhatti was put>1 [...] form tilt table testing but NA at [facility] May need to involve endocrine and EP [...] Dr. Omero DREW MD CARDIOLOGY - GENERAL [address] Mailcode: [facility], 9th Floor [facility] [address] documented in this en [...] ([facility]) | [facility] | | [facility] [address] [place] [facility] | REGIONAL | | [place] [address] | LABORATORY | + + + + + + + + | Performing | Address | City/State/Zipcode | Phone Number | | Organization | | | | + + + + + | [facility] | [address] | [place] [address] | | | LABORATORY | | | [...] [facility]LB ([facility]) | | | [facility] [place] [address] | | | [place] [address] | | + + + + + + + + | Performing | Address | City/State/Zipcode | Phone Number | | Organization | | | | + + + + + | [facility] | [address] | [place] [address] | | | LABORATORY | | | [...] | + + + + + | [facility] DEPARTMENT | [address] | [place] [address] | | | PATHOLOGY | [address] [...] DEPT OF | [address] | [place], [place] | | | CARDIOLOGY | [address] | [address] | | + + + + + [...] DEPT OF | [address] | [place], [place] | | | CARDIOLOGY | [address] | [address] | | + + + + + [...] + + + | Please click | [facility] DEPT OF | | on view image for the detailed interpretation from [employer] results. | CARDIOLOGY | + + + + + + + + | Performing | Address | City/State/Zipcode | Phone Number | | Organization | | | | + + + + + | [facility] DEPT OF | [address] | [place], [place] | | | CARDIOLOGY | [address] | [address] | | + + + + + documented in this encounter Visit Diagnoses + + | Diagnosis | + + | Chest pain - Primary Chest pain, unspecified | + + | Bradycardia Other specified cardiac dysrhythmias | + + | Pacemaker Cardiac pacemaker in situ | + + documented in this encounter
--- OUTSIDE RECORDS SUMMARY | ~2019-11-01 | XMS | Encounter Summary ---
Demographics + + + | Address | [address] | | | [place] [address] | + + + | Home Phone [...] Providers + +------+ + | Care Logistics Specialist Name | Role | Phone [...] [place] | | | | | | [address] | | | | | | [phone] | | | +--------+ + + + [...] | | | | | | [place], | | | | | | [place] [address] | | | | | | [phone] | | | | | | | | +--------+ + + + + | 11/20/ | Implant | Cardiology | Daljit Singletary, | Remote Device | | 2018 | Monitor | | [facility] | Interrogation | | | | | [place], | (Primary Dx); | | | | | [place] [address] | Presence of | | | | | [phone] | permanent cardiac | | | | [...]
--- OUTSIDE RECORDS SUMMARY | ~2019-11-01 | XMS | Encounter Summary ---
Demographics + + + | Address | [address] | | | [place] [address] | + + + | Home Phone [...] Providers + +------+ + | Care Supervisor Clam Bed Name | Role | Phone | + +------+ + PCP | Unavailable | + +------+ + Encounter Details +--------+ + + + + | Date | Type | Department | Care Team | Description | +--------+ + + + + | 08/02/ | Hospital | [facility] | | | | 2001 | Encounter | MED CTR EMERGENCY | | | | | | [place] [address] | | | | | | [place] | | | | | | [address] | | | | | | [phone] | | | +--------+ + + + [...] | | | | | | [place] [address] | | | | | | [phone] | | | | | | | | +--------+ + + + + | 11/20/ | Implant | Cardiology | Daljit Singletary, | Remote Device | | 2018 | Monitor | | [facility] | Interrogation | | | | | [place], | (Primary Dx); | | | | | [place] [address] | Presence of | | | | | [phone] | permanent cardiac | | | | [...]
--- OUTSIDE RECORDS SUMMARY | ~2019-11-01 | XMS | Encounter Summary ---
Demographics + + + | Address | [address] | | | [place] [address] | + + + | Home Phone [...] Providers + +------+ + | Care Customer Success Intern Name | Role | Phone | + +------+ + | Kirk French MD | PCP | | + +------+ + Encounter Details +--------+---------+ + + + | Date | Type | Department | Care Team | Description | +--------+---------+ + + + | 01/05/ | Surgery | [facility] | Emmanuel Daniel MD | EGD | | 2019 | | MED CTR MP INTRA OP | [address], [place] | | | | | [address] | [address] [place], [place] | | | | | [place], [place] | [address] | | | | | [address] | | | | | | [phone] | | | +--------+---------+ + + + [...] for a few hours. Date Last Reviewed: 09/22/201619998026-4267 [employer]. [address] [place] [address]. All righ ts reserved. This information is [...] vomiting, or vomiting blood Date Last Reviewed: 05/22/201619996397-9300 [employer]. [address] [place] [address]. All righ ts reserved. This information is [...] You can't be awakened Date Last Reviewed: 09/08/201619990419-0121 [employer]. [address] [place] [address], [place] [address]. All righ ts reserved. This information is [...] + + + +---------+ + + | [place]-3 Fatty | CAPS, one capsule by [...] | | | | | | [place], | | | | | | [place] [address] | | | | | | [phone] | | | | | | | | +--------+ + + + + | 11/20/ | Implant | Cardiology | Daljit Singletary, | Remote Device | | 2018 | Monitor | | [facility] | Interrogation | | | | | [place], | (Primary Dx); | | | | | [place] [address] | Presence of | | | | | [phone] | permanent cardiac | | | | [...] [address], | REFERENCE LAB | | [place], [place] [address] E Commerce Architect: Miguel Galarza MD, Phone: | [facility] | | [phone] | | + + + + + + + + | Performing | Address | City/State/Zipcode | Phone Number | | Organization | | | | + + + + + | REFERENCE LAB | [address] | [place] [address] | [phone] | | [facility] | Drive [...] + + | Performed at: 01 - [facility] [address] [place] [address], | REFERENCE LAB | | [place], [place] [id number] E Commerce Architect: Miguel Galarza MD, Phone: | [facility] | | [phone] | | + + + + + + + + | Performing | Address | City/State/Zipcode | Phone Number | | Organization | | | | + + + + + | REFERENCE LAB | [address] | [place] [address] | [phone] | | [facility] | [address] [...] [address] | [place] | [phone] | | [facility] | | [address] | | | - LABORATORY | | [...] [address] | [place] | [phone] | | [facility] | | [address] | | | - LABORATORY | | [...] | [address] | [place] | [phone] | | [facility] | | [address] | | | - LABORATORY | | [...] [address] | [place] | [phone] | | [facility] | | [address] | | | - LABORATORY | | [...] + | [address] | [address] | [place] | [phone] | | [facility] | | [address] | | | - LABORATORY | | [...] [address] | [place] | [phone] | | [facility] | | [address] | | | - LABORATORY | | | | + + + + + EGD (01/05/2019 8:36 AM PST) + + | Specimen | + + | | + + + + -+ | Narrative | Performed At | + + -+ | | [facility] | | GastroenterologyPatient Name: Moe Venegas Date: | PROVATION | | 01/05/2019 8:36 AMMRN: [id number] #: [id number] of : | | | 9Admit Type: AmbulatoryAge: 58Room: [facility] 01Gender: MaleNote | | | Status: FinalizedAttending MD: Emmanuel Daniel , [facility]rocedure: | | | Upper GI endoscopyIndications: Diarrhea, Weight | | | lossProviders: Emmanuel Daniel MD, Heidi Gonzalezchfield, | | | RN, Kim Hicks, Lawn Care Worker, | | | Jarett Barakat MD [...] physician, the nurse, the anesthesiologist and the morgue technician | | | in the endoscopy [...] | | Imaging was performed using the [employer] | | | Endoscopy (FICE) [...] Scope In: 8:43:57 AMScope Out: 8:49:[address] | | | [facility], [address] [place] [address] | | | [phone] | | |Recommendation: | | | - [...] |Scope Out: 8:49:50 AM | | | [facility], [address] [facility], [place], [place] | | | [address] | | + + -+ + +---------+ [...] | PROVATION | | 01/05/2019 8:36 AMMRN: [id number] #: [id number] of : | | | 9Admit Type: AmbulatoryAge: 58Room: [facility] 01Gender: MaleNote | | | Status: FinalizedAttending MD: Emmanuel Daniel , [facility]rocedure: | | | ColonoscopyIndications: Clinically significant diarrhea of | | | unexplained origin, Weight lossProviders: | | | Emmanuel aDniel MD, Heidi An RN, Kim | | | Fiorella Hicks, Lawn Care Worker, Jarett Alejo | | | MD Roshni [...] AMScope Out: | | | 9:06:28 AM [facility], [address] [facility], | | | [place] [address] | | | - Discharge patient to [...] |Scope Out: 9:06:28 AM | | | [facility], [address] [place] [address], [place], [place] | | | [address] | | + + -+ + +---------+ [...] | | | (atherosclerotic heart disease of [place] coronary artery without | | | angina [...] | | | microscopic colitis. BES:[facility]:C3NR GROSS DESCRIPTION: A. The | | | specimen, labeled "North, duodenal biopsy" is received in formalin | | | and consists of seven 0.1-0.5 cm lin fragments. Entirely submitted in | | | (A1). B. The specimen, labeled "North, right colon" is received | | | in formalin and consists of six 0.2-0.3 cm lin fragments. Entirely | | | submitted in (B1). C. The specimen, labeled "North, left colon" | | | is received in formalin and consists of six 0.2-0.3 cm lin-pink | | | fragments. Entirely submitted in (C1). am:AMB:rds PERFORMING | | | LABORATORY: The technical component was performed by [facility] | | | [facility], [address] [place] [address] (Cigar Head Pegger: | | | Kailey Stafford MD; CLIA# [id number]). Professional interpretation was | | | performed by [employer], [facility], [address] | | | [place] [address] (Cigar Head Pegger: Ishaan | | | Anthony Dao; CLIA#: [id number]). Diagnostician: Ishaan Fitzpatrick | | | Sylwia [...] ONCE PRN, Wheezing, | | | Starting [facility] 01/05/19 at 0924, | | | [...] | mL/hr | | | CONTINUOUS, Starting [facility] 01/05/19 | | AM PST | | | | | at 0800, Pre-op | | | | | | + +---------+ +---+-------+---+ + +---+ | | | + +---+ | ondansetron (ZOFRAN) injection | | | 4 mg 4 mg, Oral, EVERY 4 HOURS | | | PRN, Nausea, Vomiting, Starting | | | [facility] 01/05/19 at 0924, | | | Recovery/Phase I | | + +---+ | | | + +---+ | ondansetron (ZOFRAN) injection | | | 4 mg 4 mg, Intravenous, ONCE | | | PRN, Nausea, Starting [facility] 01/05/19 | | | at 0924, For 1 dose, | | | Recovery/Phase I | | + +---+ | | | + +---+ documented in this encounter
--- OUTSIDE RECORDS SUMMARY | ~2019-11-01 | XMS | Encounter Summary ---
Demographics + + + | Address | [address] | | | [place] [address] | + + + | Home Phone [...] Providers + +------+ + | Care Document Controller Name | Role | Phone | [...] + | 11/02/ | Telephone | [facility] | Daljit Singletary, | Other | | 2015 | | CARDIOLOGY [address] | MD [address] [place] | | | | | [place], | [place], | | | | | [place] [address] | [place] [address] | | | | | [phone] | | | | | | | [...] | | | | | | [place], | | | | | | [place] [address] | | | | | | [phone] | | | | | | | | +--------+ + + + + | 11/20/ | Implant | Cardiology | Daljit Singletary, | Remote Device | | 2018 | Monitor | | MD [address] | Interrogation | | | | | [place], | (Primary Dx); | | | | | [place] [address] | Presence of | | | | | [phone] | permanent cardiac | | | | [...]
--- OUTSIDE RECORDS SUMMARY | ~2019-11-01 | XMS | Encounter Summary ---
Demographics + + + | Address | [address] | | | [place] [address] | + + + | Home Phone [...] Team Providers + +------+ + | Care Neuropathologist Name | Role | Phone | + +------+ + | Kirk French MD | PCP | | + +------+ + Encounter Details +--------+ + + + + | Date | Type | Department | Care Team | Description | +--------+ + + + + | 12/23/ | Emergency | [facility] | Cristal Alexander, | Chronic neck pain; | | 2015 | | MEDICAL CENTER | DO [address] | Headache(784.0) | | | | EMERGENCY CENTER | [place] [address] | | | | | [address] | [phone] | | | | | [place], [place] | | | | | | [address] | | | | | | [phone] | | | +--------+ + + + [...] + + +---------+ + + | [place]-3 Fatty | CAPS, one capsule by | [...] | | | | | | | #[id number], exp 07/2016 | | | | | [...] | | | | | | [place] [address] | | | | | | [phone] | | | | | | | | +--------+ + + + + | 11/20/ | Implant | Cardiology | Daljit Singletary, | Remote Device | | 2018 | Monitor | | [address] [facility] | Interrogation | | | | | [place], | (Primary Dx); | | | | | [place] [address] | Presence of | | | | | [phone] | permanent cardiac | | | | [...] Conversion - 07/07/2019 5:05 AM PDT PINA [id number] years MaleCT | | CERVICAL SPINE WO [...]
--- OUTSIDE RECORDS SUMMARY | ~2019-11-01 | XMS | Encounter Summary ---
Demographics + + + | Address | [address] [place] [address] | | | [place] [address] | + + + | Home Phone [...] [place] | | | | | [address] | | + + + + + Care Team Providers + +------+ + | Care Public Policy Coordinator Name | Role | Phone | [...] | | | | | [place] | [facility] | | | | | | [place], [place] | [place], [place] | | | | | | [address] | [address] | | | | | | Phone: | Phone: | | | | | | [phone] | [phone] | | | | | | Fax: | Fax: | | | | | | [phone] | [phone] | +--------+--------+ + + + + Encounter Details +--------+---------+ + + + | Date | Type | Department | Care Team | Description | +--------+---------+ + + + | 09/28/ | Office | [facility] | Bridgette Rios, | Chronic diarrhea | | 2019 | Visit | [facility] [address] | [address] | (Primary Dx); | | | | [address] | [place], [place] | Abdominal cramping; | | | | Mailcode: [place] | [address] | Unintentional weight | | | | for Health and | [phone] | loss | | | | [facility], [facility] | | | | | | [place], [place] | | | | | | [address] | | | | | | [phone] | | | +--------+---------+ + + + [...] some lab orders to [place] 2. customer support professional the nortryptiline and take 1 tablet each [...] different fr om the original. Gastroenterology Clinic [facility] ~ Initial [...] inflammatory bowel disease. CT scan done through [facility] November show ed mild diverticulosis without evidence [...] of Present Illness: Here with his from [place] for second opinion regarding severe abdominal cramps, isreal rrhea and weight loss following a GI illness contracted during a trip to [facility]. He reports that 2 years ago he was traveling in [facility] and he had some suspicious seafood. He develo ps profound bloody diarrhea with severe abdominal pain. He was hospitalized in [facility] and w as treated with IV [...] file Gets together: Not on file Attends lutheran service: Not on file Active member of [...] Plan and Recommendations: 1. [facility] in [place] for stool studies as outlined above 2. If negative and symptoms persist, recommend capsule endoscopy (this could be completed b y local automated cutting machine operator or he could return to [place] for this test) 3. Nortryptiline 25mg q HS with instruction to titrate to 50mg q HS after 2 weeks if tolera kevin Follow-Up: with local automated cutting machine operator Counseling Time: I spent a [...] and goals for treatment. Bridgette Rios MD Cafeteria Worker Gastroenterology documented in this e ncounter [...]
--- OUTSIDE RECORDS SUMMARY | ~2019-11-01 | XMS | Encounter Summary ---
Demographics + + + | Address | [address] | | | [place] [address] | + + + | Home Phone [...] Providers + +------+ + | Care Funeral Planning Counselor Name | Role | Phone | [...] + | 11/05/ | Telephone | [facility] | Daljit Singletary, | Chest Pain | | 2016 | | CARDIOLOGY [address] | MD [address] [place] | | | | | [place], | [place], | | | | | [place] [address] | [place] [address] | | | | | [phone] | [phone] | | | | | | | [...] | | | | | | [place] [address] | | | | | | [phone] | | | | | | | | +--------+ + + + + | 11/20/ | Implant | Cardiology | Daljit Singletary, | Remote Device | | 2018 | Monitor | | MD [address] | Interrogation | | | | | [place], | (Primary Dx); | | | | | [place] [address] | Presence of | | | | | [phone] | permanent cardiac | | | | [...]
--- OUTSIDE RECORDS SUMMARY | ~2019-11-01 | XMS | Encounter Summary ---
Demographics + + + | Address | [address] | | | [place] [address] | + + + | Home Phone [...] Team Providers + +------+ + | Care Neurophysiologist Name | Role | Phone | + [...] | (Fax) | | | | | [address] | | | | | | [phone] | | | +--------+ + + + [...] | | | | | | [place] [address] | | | | | | [phone] | | | | | | | | +--------+ + + + + | 11/20/ | Implant | Cardiology | Daljit Singletary, | Remote Device | | 2018 | Monitor | | [address] [facility] | Interrogation | | | | | [place], | (Primary Dx); | | | | | [place] [address] | Presence of | | | | | [phone] | permanent cardiac | | | | [...]
--- OUTSIDE RECORDS SUMMARY | ~2019-11-01 | XMS | Encounter Summary ---
Demographics + + + | Address | [address] | | | [place] [address] | + + + | Home Phone [...] + +------+ + | Care Head Of Maintenance Name | Role | Phone | [...] Provider Unknown | | | | | [place], [place] | [phone] | | | | | [address] | | | | | | [phone] | | | +--------+ + + + [...] + + + +---------+ + + | [place]-3 Fatty | CAPS, one capsule by [...] | | | | | | | #[id number], exp 07/2016 | | | | | [...] | | | | | | [place] [address] | | | | | | [phone] | | | | | | | | +--------+ + + + + | 11/20/ | Implant | Cardiology | Daljit Singletary, | Remote Device | | 2018 | Monitor | | MD [address] | Interrogation | | | | | [place], | (Primary Dx); | | | | | [place] [address] | Presence of | | | | | [phone] | permanent cardiac | | | | [...]
--- OUTSIDE RECORDS SUMMARY | ~2019-11-01 | XMS | Encounter Summary ---
Demographics + + + | Address | [address] | | | [place] [address] | + + + | Home Phone [...] Team Providers + +------+ + | Care Scow Captain Name | Role | Phone | [...] Referral Question | | 2019 | | [facility] | MD [address] | | | | | [facility] [address] | [address] | | | | | [address] | [place] [address] | | | | | [place], [place] | [phone] | | | | | [address] | | | | | | [phone] | | | +--------+ + + + [...] | | | | | | [place] [address] | | | | | | [phone] | | | | | | | | +--------+ + + + + | 11/20/ | Implant | Cardiology | Daljti Singletary, | Remote Device | | 2018 | Monitor | | MD [address] | Interrogation | | | | | [place], | (Primary Dx); | | | | | [place] [address] | Presence of | | | | | [phone] | permanent cardiac | | | | [...]
--- OUTSIDE RECORDS SUMMARY | ~2019-11-01 | XMS | Encounter Summary ---
Demographics + + + | Address | [address] | | | [place] [address] | + + + | Home Phone [...] | | | | CENTER [address] [place] | [place], [place] | | | | | [place], [place] | [address] | | | | | [address] | | | | | | [phone] | | | +--------+ + + + [...] | | | | | | [place], | | | | | | [place] [address] | | | | | | [phone] | | | | | | | | +--------+ + + + + | 11/20/ | Implant | Cardiology | Daljit Singletary, | Remote Device | | 2019 | Monitor | | MD [address] | Interrogation | | | | | [place], | (Primary Dx); | | | | | [place] [address] | Presence of | | | | | [phone] | permanent cardiac | | | | [...]
--- OUTSIDE RECORDS SUMMARY | ~2019-11-01 | XMS | Encounter Summary ---
Demographics + + + | Address | [address] | | | [place] [address] | + + + | Home Phone [...] Providers + +------+ + | Care Telephone Maintenance Mechanic Name | Role | Phone | [...] | | CARDIOLOGY [address] | Janeen COUNTER SALES PERSON [address] | | | | | [place], | [place], | | | | | [place] [address] | [place] [address] | | | | | [phone] | [phone] | | | | | | | [...] | | | | | | [place], | | | | | | [place] [address] | | | | | | [phone] | | | | | | | | +--------+ + + + + | 11/20/ | Implant | Cardiology | Daljit Singletary, | Remote Device | | 2018 | Monitor | | MD [address] | Interrogation | | | | | [place], | (Primary Dx); | | | | | [place] [address] | Presence of | | | | | [phone] | permanent cardiac | | | | [...]
--- OUTSIDE RECORDS SUMMARY | ~2019-11-01 | XMS | Encounter Summary ---
Demographics + + + | Address | [address] | | | [place] [address] | + + + | Home Phone [...] [address] | | | | | [place], | [place], | | | | | [place] [address] | [place] [address] | | | | | [phone] | [phone] | | | | | | | [...] | | | | | | [place], | | | | | | [place] [address] | | | | | | [phone] | | | | | | | | +--------+ + + + + | 11/20/ | Implant | Cardiology | Daljit Singletary, | Remote Device | | 2018 | Monitor | | [address] [facility] | Interrogation | | | | | [place], | (Primary Dx); | | | | | [place] [address] | Presence of | | | | | [phone] | permanent cardiac | | | | [...]
--- OUTSIDE RECORDS SUMMARY | ~2019-11-01 | XMS | Encounter Summary ---
Demographics + + + | Address | [address] | | | [place] [address] | + + + | Home Phone [...] Providers + +------+ + | Care Building Drafting Officer Name | Role | Phone [...] [address] | | | | | [address] | [place] | | | | | [phone] | [address] | | | | | | [phone] | | | | | | | [...] W | | | | | | [place], | | | | | | [place] [address] | | | | | | [phone] | | | | | | | | +--------+ + + + + | 11/20/ | Implant | Cardiology | Daljit Singletary, | Remote Device | | 2018 | Monitor | | MD [address] | Interrogation | | | | | [place], | (Primary Dx); | | | | | [place] [address] | Presence of | | | | | [phone] | permanent cardiac | | | | [...]
--- OUTSIDE RECORDS SUMMARY | ~2019-11-01 | XMS | Encounter Summary ---
Demographics + + + | Address | [address] | | | [place] [address] | + + + | Home Phone [...] Team Providers + +------+ + | Care Flux Mixer Name | Role | Phone | [...] | CARDIOLOGY [address] | Janeen, SUPERVISOR ROUGH END [address] | reading) | | | | [place], | [place], | | | | | [place] [address] | [place] [address] | | | | | [phone] | [phone] | | | | | | | [...] | | | | | | [place] [address] | | | | | | [phone] | | | | | | | | +--------+ + + + + | 11/20/ | Implant | Cardiology | Daljit Singletary, | Remote Device | | 2018 | Monitor | | MD [address] | Interrogation | | | | | [place], | (Primary Dx); | | | | | [place] [address] | Presence of | | | | | [phone] | permanent cardiac | | | | [...]
--- OUTSIDE RECORDS SUMMARY | ~2019-11-01 | XMS | Encounter Summary ---
Demographics + + + | Address | [address] | | | [place] [address] | + + + | Home Phone [...] Providers + +------+ + | Care Airplane Pilot Commercial Name | Role | Phone | + [...] + + | 12/09/ | Telephone | [facility] | Emmanuel Daniel MD | Appointment (EGD, | | 2017 | | GASTROENTEROLOGY | [address], [place] | colon Rescheduled to | | | | [address] [place] | [address] [place] [place] | December 24 due to | | | | [address] [place] | [address] | illness) | | | | [address] | | | | | | [phone] | | | +--------+ + + + [...] | | | | | | [place] [address] | | | | | | [phone] | | | | | | | | +--------+ + + + + | 11/20/ | Implant | Cardiology | Daljit Singletary, | Remote Device | | 2019 | Monitor | | MD Sim [facility] | Interrogation | | | | | [place], | (Primary Dx); | | | | | [place] [address] | Presence of | | | | | [phone] | permanent cardiac | | | | [...]
--- OUTSIDE RECORDS SUMMARY | ~2019-11-01 | XMS | Encounter Summary ---
Demographics + + + | Address | [address] | | | [place] [address] | + + + | Home Phone [...] Team Providers + +------+ + | Care Telephonic Nurse Case Manager Name | Role | Phone | + +------+ + | Michael Amanda DO | PCP | | + +------+ + Reason for Visit + + + | Reason | Comments | + + + | Follow-up | One month with [facility] 12/25/13 | + + + | Chest Pain | | + + + Encounter Details +--------+---------+ + + + | Date | Type | Department | Care Team | Description | +--------+---------+ + + + | 01/29/ | Office | [facility] | Silvia, | Other chest pain | | 2013 | Visit | CARDIOLOGY [address] | PARISA [place] [address] | (Primary Dx); Chest | | | | [place], | [place], | pain; Coronary | | | | [place] [address] | [place] [address] | artery disease; | | | | [phone] | [phone] | Hyperlipidemia; | | | | | [...] last week to the emergency room at [facility] with a baljit [facility] pain episode. Patient [...] needed for Chest pain. 25 tablet 12 [place]-3 Fatty Acids (SALMON OIL-1000 PO) CAPS, one [...] was seen on the emergency room at [place] on 01/26/2014, he was ruled out A [...] pain. He is in class II of 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 There are no [...] to go back in 3 days to [place] for an attempt of ablation under general [...] symptoms. He is in class II of 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 There are no [...] made to ensure accuracy; however, inadvertent computerized sensor technician errors may be pre sent. Electronically [...] | | | | | | [place] [address] | | | | | | [phone] | | | | | | | | +--------+ + + + + | 11/20/ | Implant | Cardiology | Daljit Singletary, | Remote Device | | 2018 | Monitor | | [address] [facility] | Interrogation | | | | | [place], | (Primary Dx); | | | | | [place] [address] | Presence of | | | | | [phone] | permanent cardiac | | | | [...] of unspecified type of vessel, | | cher-ae heights or graft | + + | Hyperlipidemia Other and unspecified hyperlipidemia | + + | Symptomatic PVCs Other premature beats | + + | Hypertension Unspecified essential hypertension | + + documented in this encounter
--- OUTSIDE RECORDS SUMMARY | ~2019-11-01 | XMS | Encounter Summary ---
Demographics + + + | Address | [address] | | | [place] [address] | + + + | Home Phone [...] Team Providers + +------+ + | Care Ocean Transportation Intermediary Name | Role | Phone | + [...] | CARDIOLOGY [address] | Janeen CERTIFIED PEDORTHOTIST [address] | | | | | [place], | [place], | | | | | [place] [address] | [place] [address] | | | | | [phone] | [phone] | | | | | | | [...] W | | | | | | [place], | | | | | | [place] [address] | | | | | | [phone] | | | | | | | | +--------+ + + + + | 11/20/ | Implant | Cardiology | Daljit Singletary, | Remote Device | | 2018 | Monitor | | MD [address] | Interrogation | | | | | [place], | (Primary Dx); | | | | | [place] [address] | Presence of | | | | | [phone] | permanent cardiac | | | | [...]
--- OUTSIDE RECORDS SUMMARY | ~2019-11-01 | XMS | Encounter Summary ---
Demographics + + + | Address | [address] | | | [place] [address] | + + + | Home Phone [...] + +------+ + | Care Advanced Manufacturing Engineer Name | Role | Phone | [...] + + | 07/01/ | Hospital | [facility] | Scotty Galdamez, | DDD (degenerative | | 2018 | Encounter | MED CTR XRAY [address] | [address] | disc disease), | | | | [place] | [address] | lumbar; Chronic | | | | [place] [address] | [place] [address] | left-sided low back | | | | [phone] | [phone] | pain with left-sided | | | [...] + + + +---------+ + + | [place]-3 Fatty | CAPS, one capsule by | [...] | | | | | | [place] [address] | | | | | | [phone] | | | | | | | | +--------+ + + + + | 11/20/ | Implant | Cardiology | Daljit Singletary, | Remote Device | | 2019 | Monitor | | MD Chiquis Oro | Interrogation | | | | | [facility], | (Primary Dx); | | | | | [place] [address] | Presence of | | | | | [phone] | permanent cardiac | | | | [...]
--- OUTSIDE RECORDS SUMMARY | ~2019-11-01 | XMS | Encounter Summary ---
Demographics + + + | Address | [address] | | | [place] [address] | + + + | Home Phone [...] Providers + +------+ + | Care Marketing Communications Coordinator Name | Role | Phone | + +------+ + | Kirk French MD | PCP | | + +------+ + Encounter Details +--------+ + + + + | Date | Type | Department | Care Team | Description | +--------+ + + + + | 11/16/ | Hospital | [facility] | Kirk French | Aneurysm (HCC) | | 2017 | Encounter | MED CTR ULTRASOUND | D, MD [address] | | | | | [address] [place] | [address] | | | | | [place], [place] | [place] [address] | | | | | [address] | [phone] | | | | | [phone] | | | | | | | [...] + + + +---------+ + + | [place]-3 Fatty | CAPS, one capsule by | [...] | | | | | | [place] [address] | | | | | | [phone] | | | | | | | | +--------+ + + + + | 11/20/ | Implant | Cardiology | Daljit Singletary, | Remote Device | | 2019 | Monitor | | 401 [facility] | Interrogation | | | | | [place], | (Primary Dx); | | | | | [place] [address] | Presence of | | | | | [phone] | permanent cardiac | | | | [...]
--- OUTSIDE RECORDS SUMMARY | ~2019-11-01 | XMS | Encounter Summary ---
Demographics + + + | Address | [address] | | | [place] [address] | + + + | Home Phone [...] Team Providers + +------+ + | Care Sergeant At Arms Name | Role | Phone | + +------+ + PCP | Unavailable | + +------+ + Encounter Details +--------+ + + + + | Date | Type | Department | Care Team | Description | +--------+ + + + + | 02/07/ | [facility] | [facility] | Unknown, | | | 1995 | Encounter | MED CTR XRAY [address] | MD Stefany | | | | | [place] | | | | | | [place] [address] | (Fax) | | | | | [phone] | | | +--------+ + + + [...] | | | | | | [place] [address] | | | | | | [phone] | | | | | | | | +--------+ + + + + | 11/20/ | Implant | Cardiology | Daljit Singletary, | Remote Device | | 2019 | Monitor | | 401 [facility] | Interrogation | | | | | [place] [address] [place], | (Primary Dx); | | | | | [place] [address] | Presence of | | | | | [phone] | permanent cardiac | | | | [...]
--- OUTSIDE RECORDS SUMMARY | ~2019-11-01 | XMS | Encounter Summary ---
Demographics + + + | Address | [address] | | | [place] [address] | + + + | Home Phone [...] Team Providers + +------+ + | Care Dividing Machine Operator Helper Name | Role | [...] | disease involving | | | | [place], | [place], | [place] coronary | | | | [place] [address] | [place] [address] | artery without | | | | [phone] | [phone] | angina pectoris | | | | [...] W | | | | | | [place], | | | | | | [place] [address] | | | | | | [phone] | | | | | | | | +--------+ + + + + | 11/20/ | Implant | Cardiology | Daljit Singletary, | Remote Device | | 2018 | Monitor | | [place] 401 [facility] | Interrogation | | | | | [place], | (Primary Dx); | | | | | [place] [address] | Presence of | | | | | [phone] | permanent cardiac | | | | [...] MD | | | | | | ([id number]) on 08/29/2015 | | | | | [...] + + | Coronary artery disease involving [place] coronary artery without angina pectoris - | | Primary | + + documented in this encounter"
--- OUTSIDE RECORDS SUMMARY | ~2019-11-01 | XMS | Encounter Summary ---
Demographics + + + | Address | [address] | | | [place] [address] | + + + | Home Phone [...] Providers + +------+ + | Care Sawmill Equipment Operator Name | Role | Phone [...] W | | | | | [place], | [place], | | | | | [place] [address] | [place] [address] | | | | | [phone] | [phone] | | | | | | | [...] | | | | | [place], | | | | | | [place] [address] | | | | | | [phone] | | | | | | | | +--------+ + + + + | 11/20/ | Implant | Cardiology | Daljit Singletary, | Remote Device | | 2018 | Monitor | | 401 [facility] | Interrogation | | | | | [place], | (Primary Dx); | | | | | [place] [address] | Presence of | | | | | [phone] | permanent cardiac | | | | [...]
--- OUTSIDE RECORDS SUMMARY | ~2019-11-01 | XMS | Encounter Summary ---
Demographics + + + | Address | [address] | | | [place] [address] | + + + | Home Phone [...] Providers + +------+ + | Care Apartment Rental Agent Name | Role | Phone [...] 2012 | | CARDIOLOGY [address] | 4 H YOUTH DEVELOPMENT SPECIALIST [address] | | | | | [place], | [place], [place] | | | | | [place] [address] | [address] | | | | | [phone] | | | +--------+ + + + [...] | | | | | | [place] [address] | | | | | | [phone] | | | | | | | | +--------+ + + + + | 11/20/ | Implant | Cardiology | Daljit Singletary, | Remote Device | | 2019 | Monitor | | MD 401 [facility] | Interrogation | | | | | [place], | (Primary Dx); | | | | | [place] [address] | Presence of | | | | | [phone] | permanent cardiac | | | | [...] + | [address] | [address] | [place], [place] | | | [facility] | | [address] | | | - LABORATORY | | [...] | | | LAB | | | [place], | | | | | | External [...]
--- OUTSIDE RECORDS SUMMARY | ~2019-11-01 | XMS | Encounter Summary ---
Demographics + + + | Address | [address] | | | [place] [address] | + + + | Home Phone [...] Team Providers + +------+ + | Care Solderer Name | Role | Phone | [...] León Oro | | | | | [place] | [address] [place], [place] | | | | | [place] [address] | [address] | | | | | [phone] | | | +--------+ + + + [...] W | | | | | | [place], | | | | | | [place] [address] | | | | | | [phone] | | | | | | | | +--------+ + + + + | 11/20/ | Implant | Cardiology | Daljit Singletary, | Remote Device | | 2018 | Monitor | | [address] | Interrogation | | | | | [place], | (Primary Dx); | | | | | [place] [address] | Presence of | | | | | [phone] | permanent cardiac | | | | [...]
--- OUTSIDE RECORDS SUMMARY | ~2019-11-01 | XMS | Encounter Summary ---
Demographics + + + | Address | [address] | | | [place] [address] | + + + | Home Phone [...] Providers + +------+ + | Care Digital Editor Name | Role | Phone | + +------+ + | Michael Amanda DO | PCP | | + +------+ + Encounter Details +--------+ + + + + | Date | Type | Department | Care Team | Description | +--------+ + + + + | 01/30/ | Hospital | [facility] | Jay Gambino MD | | | 2012 - | Encounter | HEART MED CTR | [address] | | | | | CARDIAC TELEMETRY | [address] [place], | | | 01/31/ | | [address] | [place] [address] | | | 2012 | | [place] | [phone] | | | | | [address] | | | | | | [phone] | | | +--------+ + + + [...] 1960 ADMISSION DATE: 01/30/2013 DISCHARGE DATE: 01/31/2013 [id number] / [id number] ADMITTING DIAGNOSES: 1. Symptomatic PVCs. 2. Sinus [...] 150, 1 to 2 tabs daily. 10. [place]-3 fatty acids 1000 mg b.i.d. MOE GAY ADM:01/30/13 [id number] 01/31/13 DIS [place] DISCHARGE SUMMARY [id number] [facility] Carmela Cuevas PAC B [facility] MD Meena Pleitez THIS REPORT IS CONFIDENTIAL AND NOT TO BE RELEASED WITHOUT PROPER AUTHORIZATION. [facility] 11. Valacyclovir 500 mg daily. B. New medication added: Diltiazem CD 180 a day. FOLLOWUP: The patient has a followup appointment on 03/02/2013 at 10:[address] Niles meza at the [facility] [place], [address]. No heavy lifting or driving times 48 hours. YOANA Barlow MD A P [facility] #[id number] cc: MD Carmela Pleitez PA-C Electronically Signed 02/06/13 1616 LAKESHIA Barlow Electronically Signed 02/20/13 0731 Jay Gambino MD MOE GAY ADM:01/30/13 [id number] 01/31/13 DIS [place] DISCHARGE SUMMARY [id number] [facility] LAKESHIA Barlow B [facility] Jay Gambino MD R THIS REPORT IS CONFIDENTIAL AND NOT TO BE RELEASED WITHOUT PROPER AUTHORIZATION.Electronica lly signed by Jael Brown at 02/20/2013 7:31 AM FRANCYZzCarmela Moncada - 02/01/20 13 8:44 AM PDT PATIENT NAME: MOE GAY Sex/Age: M / 52Y : 1960 ADMISSION DATE: 01/30/2013 DISCHARGE DATE: 01/31/2013 [id number] / [id number] ADMITTING DIAGNOSES: 1. Symptomatic PVCs. 2. Sinus [...] 150, 1 to 2 tabs daily. 10. [place]-3 fatty acids 1000 mg b.i.d. MOE GAY ADM:01/30/13 [id number] 01/31/13 DIS [place] DISCHARGE SUMMARY [id number] [facility] LAKESHIA Barlow B [facility] MD Meena Pleitez THIS REPORT IS CONFIDENTIAL AND NOT TO BE RELEASED WITHOUT PROPER AUTHORIZATION. [facility] 11. Valacyclovir 500 mg daily. B. New medication added: Diltiazem CD 180 a day. FOLLOWUP: The patient has a followup appointment on 03/02/2013 at 10:[address] Niles meza at the [facility] [place], [address]. No heavy lifting or driving times 48 hours. YOANA Barlow MD A P [facility] #[id number] cc: MD Carmela Pleitez PA-C Electronically Signed 02/06/13 1616 LAKESHIA Barlow MOE GAY ADM:01/30/13 [id number] 01/31/13 DIS [place] DISCHARGE SUMMARY [id number] [facility] LAKESHIA Barlow ES B [facility] Jay Gambino MD R THIS REPORT [...] + + + +---------+ + + | Marshall-3 Fatty | CAPS, one capsule by | [...] | | | | | | [place] [address] | | | | | | [phone] | | | | | | | | +--------+ + + + + | 11/20/ | Implant | Cardiology | Daljit Singletary, | Remote Device | | 2019 | Monitor | | [address] [facility] | Interrogation | | | | | [place], | (Primary Dx); | | | | | [place] [address] | Presence of | | | | | [phone] | permanent cardiac | | | | [...] + | [facility] | [address] | [place] [address] | | | [facility] | [...] + + | YESSY JONES | [address] | [place] [address] | | | [facility] | [...] + + | Glucose | 113 (H)Comment: Nauruan | 65 - 99 mg/dL | [facility] | | | | Diabetes [...] + + | YESSY JON[facility] | [address] | [place] [address] | | | [facility] | | | | | LABORATORY | | | | + + + + + | YESSY JONES | | | | | [facility] | | | | | LABORATORY | | | | + + + + + documented in this encounter Visit Diagnoses Not on filedocumented in this encounter"
--- OUTSIDE RECORDS SUMMARY | ~2019-11-01 | XMS | Encounter Summary ---
Demographics + + + | Address | [address] | | | [place] [address] | + + + | Home Phone [...] Providers + +------+ + | Care Sheet Manufacturing Supervisor Name | Role | Phone | + +------+ + PCP | Unavailable | + +------+ + Encounter Details +--------+ + + + + | Date | Type | Department | Care Team | Description | +--------+ + + + + | 09/24/ | [facility] | [facility] | Evan Gandara MD | | | 2005 | Encounter | MED CTR XRAY [address] | [address] [facility] | | | | | [place] | [place] | | | | | [place] [address] | [address] | | | | | [phone] | | | +--------+ + + + [...] | | | | | | [place] [address] | | | | | | [phone] | | | | | | | | +--------+ + + + + | 11/20/ | Implant | Cardiology | Daljit Singletary, | Remote Device | | 2018 | Monitor | | MD Chiquis Oro | Interrogation | | | | | [address] [place], | (Primary Dx); | | | | | [place] [address] | Presence of | | | | | [phone] | permanent cardiac | | | | [...]
--- OUTSIDE RECORDS SUMMARY | ~2019-11-01 | XMS | Encounter Summary ---
Demographics + + + | Address | [address] | | | [place] [address] | + + + | Home Phone [...] Providers + +------+ + | Care Pre Algebra Teacher Name | Role | Phone | [...] | 04/12/ | Telephone | [facility] | Daljit Singletary, | Other (issues with | | 2017 | | CARDIOLOGY [address] | MD [address] [place] | low blood pressure | | | | [place], | [place], | and dizziness) | | | | [place] [address] | [place] [address] | | | | | [phone] | [phone] | | | | | | | [...] | | | | | | [place] [address] | | | | | | [phone] | | | | | | | | +--------+ + + + + | 11/20/ | Implant | Cardiology | Daljit Singletary, | Remote Device | | 2018 | Monitor | | [address] [place] | Interrogation | | | | | [place], | (Primary Dx); | | | | | [place] [address] | Presence of | | | | | [phone] | permanent cardiac | | | | [...]
--- OUTSIDE RECORDS SUMMARY | ~2019-11-01 | XMS | Encounter Summary ---
Demographics + + + | Address | [address] | | | [place] [address] | + + + | Home Phone [...] Providers + +------+ + | Care Industrial Sales Manager Name | Role | Phone [...] | Telephone | [facility] [place] | [place], | LABS | | 2019 | | CARDIOLOGY [address] | Janeen CIGARETTE MAKING MACHINE HOPPER FEEDER [address] | | | | | [place], | [place], | | | | | [place] [address] | [place] [address] | | | | | [phone] | [phone] | | | | | | | [...] | | | | | | [place], | | | | | | [place] [address] | | | | | | [phone] | | | | | | | | +--------+ + + + + | 11/20/ | Implant | Cardiology | Daljit Singletary, | Remote Device | | 2018 | Monitor | | [address] [place] | Interrogation | | | | | [place], | (Primary Dx); | | | | | [place] [address] | Presence of | | | | | [phone] | permanent cardiac | | | | [...]
--- OUTSIDE RECORDS SUMMARY | ~2019-11-01 | XMS | Encounter Summary ---
Demographics + + + | Address | [address] | | | [place] [address] | + + + | Home Phone [...] Providers + +------+ + | Care Urban And Regional Planner Name | Role | Phone | [...] [address] | | | | | [place], | [place], | | | | | [place] [address] | [place] [address] | | | | | [phone] | [phone] | | | | | | | [...] W | | | | | | [place], | | | | | | [place] [address] | | | | | | [phone] | | | | | | | | +--------+ + + + + | 11/20/ | Implant | Cardiology | Daljit Singletary, | Remote Device | | 2018 | Monitor | | [address] [place] | Interrogation | | | | | [place], | (Primary Dx); | | | | | [place] [address] | Presence of | | | | | [phone] | permanent cardiac | | | | [...] Comment | + + | [facility] | + + + +---------+ + + [...] Comment | + + | [facility] | + + + +---------+ + + [...]
--- OUTSIDE RECORDS SUMMARY | ~2019-11-01 | XMS | Encounter Summary ---
Demographics + + + | Address | [address] | | | [place] [address] | + + + | Home Phone [...] Providers + +------+ + | Care Film Reader Name | Role | Phone | [...] | | | | [place], [place] | [phone] | | | | | [address] | | | | | | [phone] | | | +--------+ + + + [...] | | | | | | | #[id number], exp 07/2016 | | | | | [...] | | | | | | [place] [address] | | | | | | [phone] | | | | | | | | +--------+ + + + + | 11/20/ | Implant | Cardiology | Daljit Singletary, | Remote Device | | 2018 | Monitor | | MD Chiquis Oro | Interrogation | | | | | [place], | (Primary Dx); | | | | | [place] [address] | Presence of | | | | | [phone] | permanent cardiac | | | | [...]
--- OUTSIDE RECORDS SUMMARY | ~2019-11-01 | XMS | Encounter Summary ---
Demographics + + + | Address | [address] | | | [place] [address] | + + + | Home Phone [...] + +------+ + | Care Radio Electronics Technician Name | Role | Phone | [...] | CARDIOLOGY [address] | [address] | Interrogation | | | | [place], | [place], | (Primary Dx); | | | | [place] [address] | [place] [address] | Pacemaker; | | | | [phone] | [phone] | Sinoatrial node | | | | [...] | | | | | | [place] [address] | | | | | | [phone] | | | | | | | | +--------+ + + + + | 11/20/ | Implant | Cardiology | Daljit Singletary, | Remote Device | | 2019 | Monitor | | MD Chiquis Oro | Interrogation | | | | | [place], | (Primary Dx); | | | | | [place] [address] | Presence of | | | | | [phone] | permanent cardiac | | | | [...]
--- OUTSIDE RECORDS SUMMARY | ~2019-11-01 | XMS | Encounter Summary ---
Demographics + + + | Address | [address] | | | [place] [address] | + + + | Home Phone [...] Providers + +------+ + | Care Commercial Driver Name | Role | Phone | [...] Eva ROUSE | | | | | [place], [place] | [address] | | | | | [address] | [place] [address] | | | | | [phone] | [phone] | | | | | | | [...] | | | | | | [place] [address] | | | | | | [phone] | | | | | | | | +--------+ + + + + | 11/20/ | Implant | Cardiology | Daljit Singletary, | Remote Device | | 2018 | Monitor | | [address] | Interrogation | | | | | [place], | (Primary Dx); | | | | | [place] [address] | Presence of | | | | | [phone] | permanent cardiac | | | | [...]
--- OUTSIDE RECORDS SUMMARY | ~2019-11-01 | XMS | Encounter Summary ---
Demographics + + + | Address | [address] | | | [place] [address] | + + + | Home Phone [...] Providers + +------+ + | Care Operating Manager Name | Role | Phone | [...] | | | | Sinoatrial | Jose, FLUOROSCOPE OPERATOR | [address] | | | | | node | [address] | [place], | | | | | dysfunction | [place] | [place] | | | | | (HCC) | [place], [place] | [address] | | | | | Coronary | [address] | Phone: | | | | | artery | Phone: | [phone] | | | | | disease | [phone] | Fax: | | | | | involving | Fax: | [phone] | | | | | enterprise | [phone] | | | | | | coronary | | | | | | | artery of | | | | | | | enterprise heart | | | | | | [...] | | | | | | Complete ID | | | | | | | ECHO HEART | | | | | | | XTHORACIC,[place] | | | | | | | MPLETE W | | | | | | | DOPPLER ID | | | | | | [...] | | | | Sinoatrial | Jose, FLUOROSCOPE OPERATOR | [address] | | | | | node | [address] | [place], | | | | | dysfunction | [place] | [place] | | | | | ([facility]) | [place], [place] | [address] | | | | | Coronary | [address] | Phone: | | | | | artery | Phone: | [phone] | | | | | disease | [phone] | Fax: | | | | | involving | Fax: | [phone] | | | | | enterprise | [phone] | | | | | | coronary | | | | | | | artery of | | | | | | | enterprise heart | | | | | | [...] | | | | | | Complete ID | | | | | | | ECHO HEART | | | | | | | XTHORACIC,CO | | | | | | | MPLETE W | | | | | | | DOPPLER ID | | | | | | [...] 06/16/ | [facility] | [facility] | Jose Angel, | Sinoatrial node | | 2016 | Encounter | MED CTR ECHO [address] | FLUOROSCOPE OPERATOR [address] | dysfunction (HCC) | | | | [place] | [place], [place] | with symptomatic | | | | [place] [address] | [address] | bradycardia; | | | | [phone] | | Coronary artery | | | | | Juven[place], | disease involving | | | | | Technologist | enterprise coronary | | | | | | artery of enterprise | | | | | | heart [...] W | | | | | | [place], | | | | | | [place] [address] | | | | | | [phone] | | | | | | | | +--------+ + + + + | 11/20/ | Implant | Cardiology | Sydni Singletary, | Remote Device | | 2018 | Monitor | | [address] [facility] | Interrogation | | | | | [place], | (Primary Dx); | | | | | [place] [address] | Presence of | | | | | [phone] | permanent cardiac | | | | [...] involving | | | | | | enterprise coronary | | | | | | artery of enterprise | | | | | | heart [...] Patient | [facility] | | [id number] Date of Study 06/16/2016 Number | - IMAGING | | Visit Number [id number] | | | Referring Physician JOSE ARMANDO JOSE Number Date of 1960 | | | Information Security Architect LUIS FERNANDO DUARTE Age | | | 56 year(s) Interpreting | | | GURJIT TROY | | | Rn Pediatric Icu SYDNI SINGLETARY, | | | Gender | | | Male Nurse Procedure Type of Study TTE | | | procedure: ECHO Complete. Procedure dateDate: 06/16/2016Start: 10:55 | | | AM Technical Quality: Adequate visualizationStudy Location: Echo | | | LabIndications: CAD [place] CORONARY ARTERY 414.01/ I25.10 and | | [...] BARRY Room Number SARAH | | Patient [id number] Date of Study 06/16/2016 Number Visit Number | | [id number] Referring Physician JOSE ARMANDO GARCIA Number | | Date of 1960 Information Security Architect LUIS FERNANDO DUARTE Age | | 56 year(s) Interpreting GURJIT TROY | | Rn Pediatric Icu SYDNI SINGLETARY | | Gender Male NurseProcedureType of Study TTE | | procedure: ECHO Complete.Procedure dateDate: 06/16/2016Start: 10:55 AMTechnical Quality: | | Adequate visualizationStudy Location: Echo LabIndications: CAD [place] CORONARY ARTERY | | 414.01/ I25.10 and [...] [address] | [place] | [phone] | | [facility] | | [address] | | | - IMAGING | | [...] Coronary artery disease involving enterprise coronary artery of enterprise heart without | | angina pectoris | + + | Ascending thoracic aortic aneurysm (HCC) Thoracic aneurysm without mention of rupture | + + documented in this encounter"
--- OUTSIDE RECORDS SUMMARY | ~2019-11-01 | XMS | Encounter Summary ---
Demographics + + + | Address | [address] | | | [place] [address] | + + + | Home Phone [...] Team Providers + +------+ + | Care Pinking Sewing Machine Operator Name | Role | Phone [...] [address] | | | | | [address] | [place] | | | | | [phone] | [address] | | | | | | | [...] | | | | | | [place] [address] | | | | | | [phone] | | | | | | | | +--------+ + + + + | 11/20/ | Implant | Cardiology | Daljit Singletary, | Remote Device | | 2018 | Monitor | | MD Sim [facility] | Interrogation | | | | | [place], | (Primary Dx); | | | | | [place] [address] | Presence of | | | | | [phone] | permanent cardiac | | | | [...]
--- OUTSIDE RECORDS SUMMARY | ~2019-11-01 | XMS | Encounter Summary ---
Demographics + + + | Address | [address] | | | [place] [address] | + + + | Home Phone [...] + +------+ + | Care Blood Tester Fowl Name | Role | Phone | + [...] + + | 09/13/ | Office | [facility] | Bahman Gant MD | Other dysphagia | | 2013 | Visit | OTOLARYNGOLOGY [address] | [address] [place] | (Primary Dx) | | | | [address] | [address] [place], | | | | | [place], [place] | [place] [address] | | | | | [address] | [phone] | | | | | [phone] | | | +--------+---------+ + + + [...] MD - 09/13/2013 5:46 PM PDTSee dictation #[id number] signed by Joseph Gant MD at 09/13/2013 5:52 PM Bahman Lamb MD - 09/13/2013 12:00 AM PDT ENT AND AUDIOLOGY [address] [facility] [address] [place] [address] FAX: [phone] OFFICE VISIT The patient gives a history [...] Gant MD GM / MS JOB #: [id number] signed by Bahman Gant MD at 09/14/2013 [...] | | | | | | [place] [address] | | | | | | [phone] | | | | | | | | +--------+ + + + + | 11/20/ | Implant | Cardiology | Daljit Singletary, | Remote Device | | 2019 | Monitor | | [address] [facility] | Interrogation | | | | | [place], | (Primary Dx); | | | | | [place] [address] | Presence of | | | | | [phone] | permanent cardiac | | | | [...]
--- OUTSIDE RECORDS SUMMARY | ~2019-11-01 | XMS | Encounter Summary ---
Demographics + + + | Address | [address] | | | [place] [address] | + + + | Home Phone [...] Team Providers + +------+ + | Care Brokerage Manager Name | Role | Phone | + +------+ + PCP | Unavailable | + +------+ + Encounter Details +--------+ + + + + | Date | Type | Department | Care Team | Description | +--------+ + + + + | 08/17/ | [facility] | [facility] | Evan Gandara MD | | | 2005 | Encounter | MED CTR LABORATORY | [address] [facility] | | | | | [address] | [place] | | | | | [place] | [address] | | | | | [address] | | | | | | [phone] | | | +--------+ + + + [...] | | | | | | [place] [address] | | | | | | [phone] | | | | | | | | +--------+ + + + + | 11/20/ | Implant | Cardiology | Daljit Singletary, | Remote Device | | 2019 | Monitor | | MD [address] | Interrogation | | | | | [place], | (Primary Dx); | | | | | [place] [address] | Presence of | | | | | [phone] | permanent cardiac | | | | [...]
--- OUTSIDE RECORDS SUMMARY | ~2019-11-01 | XMS | Encounter Summary ---
Demographics + + + | Address | [address] | | | [place] [address] | + + + | Home Phone [...] Providers + +------+ + | Care Director Experimental Medicine Name | Role | Phone | [...] | | | | | region | [address] | | | | | | Procedures | [address] | | | | | | CT | [place], [place] | | | | | | Myelography | [address] | | | | | | Lumbar Spine | Phone: | | | | | | | [phone] | | | | | | | Fax: | | | | | | | [phone] | | +--------+--------+ + + + + [...] | | | | | region | [address] | | | | | | Procedures | [address] | | | | | | CT | [place], [place] | | | | | | Myelography | [address] | | | | | | Lumbar Spine | Phone: | | | | | | | [phone] | | | | | | | Fax: | | | | | | | [phone] | | +--------+--------+ + + + + Encounter Details +--------+ + + + + | Date | Type | Department | Care Team | Description | +--------+ + + + + | 04/07/ | Hospital | [facility] | Pia Akhtar | Spinal stenosis, | | 2016 | Encounter | MED CTR [address] | MD [address] | lumbar region | | | | [place], | [address] | | | | | [place] [address] | [place] [address] | | | | | [phone] | [phone] | | | | | | | [...] | | | | | | [place] [address] | | | | | | [phone] | | | | | | | | +--------+ + + + + | 11/20/ | Implant | Cardiology | Daljit Singletary, | Remote Device | | 2018 | Monitor | | [address] [facility] | Interrogation | | | | | [place], | (Primary Dx); | | | | | [place] [address] | Presence of | | | | | [phone] | permanent cardiac | | | | [...]
--- OUTSIDE RECORDS SUMMARY | ~2019-11-01 | XMS | Encounter Summary ---
Demographics + + + | Address | [address] | | | [place] [address] | + + + | Home Phone [...] Providers + +------+ + | Care Hog Tender Name | Role | Phone | + +------+ + PCP | Unavailable | + +------+ + Encounter Details +--------+ + + + + | Date | Type | Department | Care Team | Description | +--------+ + + + + | 02/01/ | [facility] | [facility] | Evan Gandara MD | | | 2008 - | Encounter | MED CTR MED ONC | [address] [facility] | | | | | [address] | [place] | | | 02/06/ | | [place] [address] | [address] | | | 2008 | | [phone] | | | +--------+ + + + [...] [place] | | | | | | [place] [address] | | | | | | [phone] | | | | | | | | +--------+ + + + + | 11/20/ | Implant | Cardiology | Daljit Singletary, | Remote Device | | 2019 | Monitor | | MD [address] | Interrogation | | | | | [address] [place], | (Primary Dx); | | | | | [place] [address] | Presence of | | | | | [phone] | permanent cardiac | | | | [...]
--- OUTSIDE RECORDS SUMMARY | ~2019-11-01 | XMS | Encounter Summary ---
Demographics + + + | Address | [address] | | | [place] [address] | + + + | Home Phone [...] Providers + +------+ + | Care Site Lead Name | Role | Phone | [...] | | | | | region | [address] | | | | | | Procedures | [address] | | | | | | CT | [place], [place] | | | | | | Myelography | [address] | | | | | | Lumbar Spine | Phone: | | | | | | | [phone] | | | | | | | Fax: | | | | | | | [phone] | | +--------+--------+ + + + + [...] | | | | | region | [address] | | | | | | Procedures | [address] | | | | | | CT | [place], [place] | | | | | | Myelography | [address] | | | | | | Lumbar Spine | Phone: | | | | | | | [phone] | | | | | | | Fax: | | | | | | | [phone] | | +--------+--------+ + + + + Encounter Details +--------+ + + + + | Date | Type | Department | Care Team | Description | +--------+ + + + + | 04/07/ | Hospital | [facility] | Pia Akhtar | Spinal stenosis, | | 2016 | Encounter | MED CTR [address] | MD [address] | lumbar region | | | | [place], | [address] | | | | | [place] [address] | [place] [address] | | | | | [phone] | [phone] | | | | | | | [...] + + + +---------+ + + | Webster-3 Fatty | CAPS, one capsule by | [...] | | | | | | [place] [address] | | | | | | [phone] | | | | | | | | +--------+ + + + + | 11/20/ | Implant | Cardiology | Daljit Singletary, | Remote Device | | 2018 | Monitor | | [address] [facility] | Interrogation | | | | | [place], | (Primary Dx); | | | | | [place] [address] | Presence of | | | | | [phone] | permanent cardiac | | | | [...]
--- OUTSIDE RECORDS SUMMARY | ~2019-11-01 | XMS | Encounter Summary ---
Demographics + + + | Address | [address] | | | [place] [address] | + + + | Home Phone [...] [address] | | | | | [place], | [place], | | | | | [place] [address] | [place] [address] | | | | | [phone] | | | | | | | [...] | | | | | | [place] [address] | | | | | | [phone] | | | | | | | | +--------+ + + + + | 11/20/ | Implant | Cardiology | Daljit Singletary, | Remote Device | | 2018 | Monitor | | [address] [facility] | Interrogation | | | | | [address] [place], | (Primary Dx); | | | | | [place] [address] | Presence of | | | | | [phone] | permanent cardiac | | | | [...]
--- OUTSIDE RECORDS SUMMARY | ~2019-11-01 | XMS | Encounter Summary ---
Demographics + + + | Address | [address] | | | [place] [address] | + + + | Home Phone [...] Team Providers + +------+ + | Care Deposit Clerk Name | Role | Phone [...] | | CARDIOLOGY [address] | Janeen, EPIC AMBULATORY ANALYST [address] | reading) | | | | [place], | [place], | | | | | [place] [address] | [place] [address] | | | | | [phone] | [phone] | | | | | | | [...] | | | | | | [place] [address] | | | | | | [phone] | | | | | | | | +--------+ + + + + | 11/20/ | Implant | Cardiology | Daljit Singletary, | Remote Device | | 2018 | Monitor | | MD [address] [place] [address] | Interrogation | | | | | [address] [place], | (Primary Dx); | | | | | [place] [address] | Presence of | | | | | [phone] | permanent cardiac | | | | [...]
--- OUTSIDE RECORDS SUMMARY | ~2019-11-01 | XMS | Encounter Summary ---
Demographics + + + | Address | [address] | | | [place] [address] | + + + | Home Phone [...] Team Providers + +------+ + | Care Sidehand Name | Role | Phone | + [...] [address] | MD [address] [place] | | | | | [place], | [place], | | | | | [place] [address] | [place] [address] | | | | | [phone] | [phone] | | | | | | | [...] | | | | | | [place] [address] | | | | | | [phone] | | | | | | | | +--------+ + + + + | 11/20/ | Implant | Cardiology | Daljit Singletary, | Remote Device | | 2019 | Monitor | | MD [address] [place] [place] | Interrogation | | | | | [address] [place], | (Primary Dx); | | | | | [place] [address] | Presence of | | | | | [phone] | permanent cardiac | | | | [...]
--- OUTSIDE RECORDS SUMMARY | ~2019-11-01 | XMS | Encounter Summary ---
Demographics + + + | Address | [address] | | | [place] [address] | + + + | Home Phone [...] Providers + +------+ + | Care Manager Case Name | Role | Phone | [...] | 10/04/ | Telephone | [facility] | Daljit Singletary, | Other (Records sent) | | 2012 | | CARDIOLOGY [address] | MD [address] [place] | | | | | [place], | [place], | | | | | [place] [address] | [place] [address] | | | | | [phone] | [phone] | | | | | | | [...] | | | | | | [place] [address] | | | | | | [phone] | | | | | | | | +--------+ + + + + | 11/20/ | Implant | Cardiology | Daljit Singletary, | Remote Device | | 2018 | Monitor | | [address] [facility] | Interrogation | | | | | [place], | (Primary Dx); | | | | | [place] [address] | Presence of | | | | | [phone] | permanent cardiac | | | | [...]
--- OUTSIDE RECORDS SUMMARY | ~2019-11-01 | XMS | Encounter Summary ---
Demographics + + + | Address | [address] | | | [place] [address] | + + + | Home Phone [...] Providers + +------+ + | Care Fruit Harvest Machine Operator Name | Role | Phone [...] Amanda, | | | 2013 | | [facility] | DO [address] | | | | | [address] | [place] | | | | | [place] | [address] | | | | | [address] | | | | | | [phone] | | | +--------+ + + + [...] | | | | | | [place] [address] | | | | | | [phone] | | | | | | | | +--------+ + + + + | 11/20/ | Implant | Cardiology | Daljit Singletary, | Remote Device | | 2019 | Monitor | | MD [address] [facility] | Interrogation | | | | | [place], | (Primary Dx); | | | | | [place] [address] | Presence of | | | | | [phone] | permanent cardiac | | | | [...] + | [facility] | [address] | [place] | [phone] | | [facility] | | [address] | | | - LABORATORY | | | | + + + + + | [facility] | [address] | [place] | | | [facility] | | [address] | | | - LABORATORY | | [...] | | | | | | | [place], | | | | | | External [...]
--- OUTSIDE RECORDS SUMMARY | ~2019-11-01 | XMS | Encounter Summary ---
Demographics + + + | Address | [address] | | | [place] [address] | + + + | Home Phone [...] Providers + +------+ + | Care Customs Verifier Name | Role | Phone | [...] | | | pain | [address] | [address] | | | | | Procedures | [place] | [place], | | | | | [place] Nuclear | [place], [place] | [place] | | | | | Stress Test | [address] | [address] | | | | | (Vasodilator | Phone: | Phone: | | | | | ) CHG | [phone] | [phone] | | | | | MYOCARDIAL | Fax: | Fax: | | | | | SPECT | [phone] | [phone] | | | | | MULTIPLE | [...] 2012 | | CARDIOLOGY [address] | RETAIL PROPERTY MANAGER [address] | interactions, chest | | | | [place], | [place], [place] | pain) | | | | [place] [address] | [address] | | | | | [phone] | | | +--------+ + + + [...] | | | | | | [place] [address] | | | | | | [phone] | | | | | | | | +--------+ + + + + | 11/20/ | Implant | Cardiology | Daljit Singletary, | Remote Device | | 2018 | Monitor | | MD [address] [place] [address] | Interrogation | | | | | [place], | (Primary Dx); | | | | | [place] [address] | Presence of | | | | | [phone] | permanent cardiac | | | | [...] | [facility] Diagnostic [facility] | [place] | | Department [address] [place] [address] [facility] | | [ rep [address]] [ rep [facility] | | st zip] Signed | - IMAGING | | | | | Patient Name: MOE GAY | | | Physician: JACKLYN : 1960 Age: 53 Sex: M Unit | | | #: [id number] Exam Date: 12/06/13 Location: | | | [facility] #: [id number] Page: | | | %(RAD)RES..mtdd.print.filter("pg") of %(RAD) | | | RES..mtdd.print.filter("tpg") | | | | | | Accession Number: [id number] | | | PERSANTINE SESTAMIBI STRESS TEST, [...] Transcribed Date/Time: 12/07/2013 08:18 | | | Glass Technician/Installer: <<Signature on File>> | | | | | | Daljit Singletary MD [facility] FAS12/07/13 1321 <Electronically signed | | | by Daljit Singletary MD, [facility], [facility], [facility], [facility]> Daljit | | | MD Gemini [facility] 12/07/13 0701 Glass Technician/Installer: Jessica | | | Undrkkgbyjhtt50/16/14 0818 PARISA Garcia | | + + + + + + + + | Performing | Address | City/State/Zipcode | Phone Number | | Organization | | | | + + + + + | [facility] | [address] | [place] | [phone] | | [facility] | | [address] | | | - IMAGING | | | | + + + + + documented in this encounter Visit Diagnoses + + | Diagnosis | + + | Other chest pain - Primary | + + documented in this encounter
--- OUTSIDE RECORDS SUMMARY | ~2019-11-01 | XMS | Encounter Summary ---
Demographics + + + | Address | [address] | | | [place] [address] | + + + | Home Phone [...] + +------+ + | Care Vice President Network Development Name | Role | Phone | [...] visit | CARDIOLOGY [address] | [address] | reprogramming/check | | | | [place], | [place], | DO NOT DELETE | | | | [place] [address] | [place] [address] | (Primary Dx); | | | | [phone] | [phone] | Sinoatrial node | | | | [...] W | | | | | | [place], | | | | | | [place] [address] | | | | | | [phone] | | | | | | | | +--------+ + + + + | 11/20/ | Implant | Cardiology | Daljit Singletary, | Remote Device | | 2018 | Monitor | | MD [address] [place] [place] | Interrogation | | | | | [place], | (Primary Dx); | | | | | [place] [address] | Presence of | | | | | [phone] | permanent cardiac | | | | [...]
--- OUTSIDE RECORDS SUMMARY | ~2019-11-01 | XMS | Encounter Summary ---
Demographics + + + | Address | [address] | | | [place] [address] | + + + | Home Phone [...] + + | 12/16/ | Hospital | [facility] | | | | 2010 | Encounter | MED CTR LABORATORY | | | | | | [address] | | | | | | [place] | | | | | | [address] | | | | | | [phone] | | | +--------+ + + + [...] | | | | | | [place] [address] | | | | | | [phone] | | | | | | | | +--------+ + + + + | 11/20/ | Implant | Cardiology | Daljit Singletary, | Remote Device | | 2018 | Monitor | | [address] [facility] | Interrogation | | | | | [place], | (Primary Dx); | | | | | [place] [address] | Presence of | | | | | [phone] | permanent cardiac | | | | [...]
--- OUTSIDE RECORDS SUMMARY | ~2019-11-01 | XMS | Encounter Summary ---
Demographics + + + | Address | [address] | | | [place] [address] | + + + | Home Phone [...] Providers + +------+ + | Care Rn Private Duty Name | Role | Phone | + +------+ + PCP | Unavailable | + +------+ + Encounter Details +--------+ + + + + | Date | Type | Department | Care Team | Description | +--------+ + + + + | 02/21/ | [facility] | [facility] | Geri Angel, | | | 2011 | Encounter | MED CTR XRAY [address] | DIRECTOR SALES [address] | | | | | [place] | [address] [place] | | | | | [place] [address] | [address] | | | | | [phone] | | | +--------+ + + + [...] | | | | | | [place] [address] | | | | | | [phone] | | | | | | | | +--------+ + + + + | 11/20/ | Implant | Cardiology | Daljit Singletary, | Remote Device | | 2019 | Monitor | | MD [address] | Interrogation | | | | | [place], | (Primary Dx); | | | | | [place] [address] | Presence of | | | | | [phone] | permanent cardiac | | | | [...]
--- OUTSIDE RECORDS SUMMARY | ~2019-11-01 | XMS | Encounter Summary ---
Demographics + + + | Address | [address] | | | [place] [address] | + + + | Home Phone [...] Providers + +------+ + | Care Pipe Supervisor Name | Role | Phone | + +------+ + | Kirk French MD | PCP | | + +------+ + Encounter Details +--------+ + + + + | Date | Type | Department | Care Team | Description | +--------+ + + + + | 07/21/ | Hospital | [facility] | Daljit Singletary, | Palpitations; | | 2018 | Encounter | MED CTR NUCLEAR | MD [address] | Presence of | | | | MEDICINE [address] | [address], | permanent cardiac | | | | [place] | [place] [address] | pacemaker; | | | | [address] | [phone] | Sinoatrial node | | | | [phone] | | dysfunction (HCC) | +--------+ + [...] + + + +---------+ + + | Bellflower-3 Fatty | CAPS, one capsule by | [...] | | | | | | [place] [address] | | | | | | [phone] | | | | | | | | +--------+ + + + + | 11/20/ | Implant | Cardiology | SunshinecherelleDaljit, | Remote Device | | 2019 | Monitor | | [address] [facility] | Interrogation | | | | | [place], | (Primary Dx); | | | | | [place] [address] | Presence of | | | | | [phone] | permanent cardiac | | | | [...] 08/25/2018 13:12 Wireless even study from | [facility] | | 07/21 until 08/22/2018. [...]
--- OUTSIDE RECORDS SUMMARY | ~2019-11-01 | XMS | Encounter Summary ---
Demographics + + + | Address | [address] | | | [place] [address] | + + + | Home Phone [...] Provider Unknown | | | | | [place], [place] | [phone] | | | | | [address] | | | | | | [phone] | | | +--------+ + + + [...] + + + +---------+ + + | Woodward-3 Fatty | CAPS, one capsule by | [...] | | | | | | | #[id number], exp 07/2016 | | | | | [...] | | | | | | [place] [address] | | | | | | [phone] | | | | | | | | +--------+ + + + + | 11/20/ | Implant | Cardiology | Daljit Singletary, | Remote Device | | 2018 | Monitor | | MD [address] | Interrogation | | | | | [place], | (Primary Dx); | | | | | [place] [address] | Presence of | | | | | [phone] | permanent cardiac | | | | [...]
--- OUTSIDE RECORDS SUMMARY | ~2019-11-01 | XMS | Encounter Summary ---
Demographics + + + | Address | [address] | | | [place] [address] | + + + | Home Phone [...] Providers + +------+ + | Care Client Application Support Engineer Name | Role | Phone | + +------+ + | Kirk French MD | PCP | | + +------+ + Encounter Details +--------+---------+ + + + | Date | Type | Department | Care Team | Description | +--------+---------+ + + + | 12/24/ | Surgery | [facility] | Emmanuel Daniel MD | EGD | | 2018 | | MED CTR MP INTRA OP | [address], [place] | | | | | [address] | [address] [place], [place] | | | | | [place], [place] | [address] | | | | | [address] | | | | | | [phone] | | | +--------+---------+ + + + [...] + + + +---------+ + + | Quecreek-3 Fatty | CAPS, one capsule by | [...] | | | | | | [place] [address] | | | | | | [phone] | | | | | | | | +--------+ + + + + | 11/20/ | Implant | Cardiology | Daljit Singletary, | Remote Device | | 2019 | Monitor | | [facility] | Interrogation | | | | | [place], | (Primary Dx); | | | | | [place] [address] | Presence of | | | | | [phone] | permanent cardiac | | | | [...] + | Performed at: 01 - [address] [address], | REFERENCE LAB | | [place], [place] [id number] [place]: William Andrew MD, Phone: | ARSH - KINA | | [phone] | | + + + + + + + + | Performing | Address | City/State/Zipcode | Phone Number | | Organization | | | | + + + + + | REFERENCE LAB | [address] | [place] [address] | [phone] | | LABBLAYNE - KINA | [facility] | | | + + [...] [address] | [place] | [phone] | | [facility] | | [address] | | | - LABORATORY | | [...] | | Aeromonas, Plesiomonas, | | [facility] | | | | E. [...] [address] | [place] | [phone] | | [facility] | | [address] | | | - LABORATORY | | [...] [address] | [place] | [phone] | | [facility] | | [address] | | | - LABORATORY | | [...] | Performed at: 01 - [address] [address] [address], | REFERENCE LAB | | [place], [place] [id number] [place]: William Andrew MD, Phone: | ARSH - KINA | | [phone] | | + + + + + + + + | Performing | Address | City/State/Zipcode | Phone Number | | Organization | | | | + + + + + | REFERENCE LAB | [address] | [place] [address] | [phone] | | LABBLAYNE - KINA | Wright [...] + | [facility] | [address] | [place] | [phone] | | [facility] | | [address] | | | - LABORATORY | | [...] [address] | [place] | [phone] | | [facility] | | [address] | | | - LABORATORY | | [...] | | dium | | | [facility] | | | Antigen | [...] [address] | [place] | [phone] | | [facility] | | [address] | | | - LABORATORY | | [...] [address] | [place] | [phone] | | [facility] | | [address] | | | - LABORATORY | | [...] [address] | [place] | [phone] | | [facility] | | [address] | | | - LABORATORY | | | | + + + + + EGD (12/24/2017 1:19 PM PST) + + | Specimen | + + | | + + + + -+ | Narrative | Performed At | + + -+ | | [facility] | | GastroenterologyPatient Name: Moe SanchezKane Date: 12/24/2017 | [facility] | | 1:19 PMMRN: [id number] #: [id number] of : | | | 1960Admit Type: AmbulatoryAge: 57Room: [facility] 01Gender: MaleNote | | | Status: FinalizedAttending MD: Emmanuel Daniel , [facility]cedure: | | | Upper GI endoscopyIndications: Diarrhea, Weight | | | lossProviders: Emmanuel Daniel MD, Maria Isabel Morris RN, | | | Kim Hicks, Oven Equipment Repairer, Jarett | | | Sapna Barakat MD [...] the anesthesiologist and | | | the cartography/mapping technician in the endoscopy suite. Mental Status [...] PMScope Out: 1:31:13 PM | | | [facility], [address] [place] [address] | | | [place] [address] | | | - Discharge patient to [...] |Scope Out: 1:31:13 PM | | | [facility], [address], [place] | | | [address] | | + + -+ + +---------+ [...] 12/24/2017 | [facility] | | 1:17 PMMRN: [id number] #: [id number] of : | | | 8Admit Type: AmbulatoryAge: 57Room: [facility] 01Gender: MaleNote | | | Status: FinalizedAttending MD: Emmanuel Daniel , [facility]cedure: | | | ColonoscopyIndications: Clinically significant diarrhea of | | | unexplained originProviders: Emmanuel Daniel MD, Maria Isabel | | | Arturo RN, Kim Hicks, Oven Equipment Repairer, | | | Jarett Barakat MD (Anesthesia [...] | | | the anesthesiologist and the cartography/mapping technician in the endoscopy suite. | | [...] 1:48:57 PM [facility] | | | [facility], [address] [place] [address] | | | [phone] | | | - Await pathology results. [...] |Scope Out: 1:48:57 PM | | | [facility], [address] [place] [address] | | | [address] | | + + -+ + +---------+ [...] | colonic mucosa with focal adenomatous change. CLR:[facility]:C2NR | | | GROSS DESCRIPTION: Received in [...] | | cm, submitted, all in (D1). ka:CLR:[facility] ADDITIONAL NOTES: | | | Immunohistochemical studies were performed on this case with the | | | appropriate positive controls that react as expected. This test was | | | developed and its performance characteristics determined by [employer] | | | [facility]. It has not been cleared or approved by the U.S. Food | | | and Drug Administration. The FDA has determined that such clearance | | | or approval is not necessary. This test is used for clinical | | | purposes. It should not be regarded as investigational or for | | | research. [employer] is certified under the Clinical | | | Laboratory Improvement Amendments of 1988 (CLIA) as qualified to | | | perform high complexity clinical laboratory testing. This assay | | | has not been validated for specimens that have been decalcified. | | | PERFORMING LABORATORY: Tissue processing and slide preparation were | | | performed by [facility] [employer], [address], [facility] | | | [place] [address] (Nail Technician Teacher: Evan Frausto M.D. CLIA#: | | | [id number]). Professional interpretation was performed by [employer] | | | [facility], [address], [place] [address] | | | (Nail Technician Teacher: Evan Frausto M.D.; CLIA#: [id number]). | | | Diagnostician: Rafael Bales MD Pathologist Electronically | | | Signed 12/28/2017 | | + + + + +---------+ + + | Performing | Address | City/State/[facility]code | Phone Number | | Organization [...]
--- OUTSIDE RECORDS SUMMARY | ~2019-11-01 | XMS | Encounter Summary ---
Demographics + + + | Address | [address] | | | [place] [address] | + + + | Home Phone [...] Team Providers + +------+ + | Care Blender Conveyor Operator Name | Role | Phone [...] + | 07/01/ | Telephone | [facility] | Daljit Singletary, | Other (EKG) | | 2017 | | CARDIOLOGY [address] | MD [address] [place] | | | | | [place], | [place], | | | | | [place] [address] | [place] [address] | | | | | [phone] | [phone] | | | | | | | [...] | | | | | | [place] [address] | | | | | | [phone] | | | | | | | | +--------+ + + + + | 11/20/ | Implant | Cardiology | Daljit Singletary, | Remote Device | | 2018 | Monitor | | [facility] | Interrogation | | | | | [place], | (Primary Dx); | | | | | [place] [address] | Presence of | | | | | [phone] | permanent cardiac | | | | [...]
--- OUTSIDE RECORDS SUMMARY | ~2019-11-01 | XMS | Encounter Summary ---
Demographics + + + | Address | [address] | | | [place] [address] | + + + | Home Phone [...] Providers + +------+ + | Care Textile Artist Name | Role | Phone | [...] + + | 10/25/ | Telephone | [facility] | Silvia, | Other (patient has | | 2013 | | CARDIOLOGY [address] | Janeen SPORTS EQUIPMENT SUPERVISOR [address] | changed his mind) | | | | [employer] [place], | [employer] [place], | | | | | [place] [address] | [place] [address] | | | | | [phone] | [phone] | | | | | | | [...] | | | [employer] [place], | | | | | | [place] [address] | | | | | | [phone] | | | | | | | | +--------+ + + + + | 11/20/ | Implant | Cardiology | Daljit Singletary, | Remote Device | | 2018 | Monitor | | [facility] | Interrogation | | | | | [place], | (Primary Dx); | | | | | [place] [address] | Presence of | | | | | [phone] | permanent cardiac | | | | [...]
--- OUTSIDE RECORDS SUMMARY | ~2019-11-01 | XMS | Encounter Summary ---
Demographics + + + | Address | [address] | | | [place] [address] | + + + | Home Phone [...] Team Providers + +------+ + | Care Stereoptic Projection Topographer Name | Role | Phone | + +------+ + | Michael Amanda DO | PCP | | + +------+ + Encounter Details +--------+ + + + + | Date | Type | Department | Care Team | Description | +--------+ + + + + | 10/01/ | Hospital | [facility] | Mary Bradshaw | | | 2013 | Encounter | [facility] | Gyu Larkin MD | | | | | [address] [place] | [address] | | | | | [place], [place] | [place], [place] | | | | | [address] | [address] | | | | | [phone] | | | +--------+ + + + [...] | | | | | | [place] [address] | | | | | | [phone] | | | | | | | | +--------+ + + + + | 11/20/ | Implant | Cardiology | Daljit Singletary, | Remote Device | | 2019 | Monitor | | [place] [facility] | Interrogation | | | | | [place], | (Primary Dx); | | | | | [place] [address] | Presence of | | | | | [phone] | permanent cardiac | | | | [...] + | MISCELLANEOUS LAB | | | [phone] | + +---------+ + + | MISCELANIOUS LAB | | | [phone] | + +---------+ + + documented in this encounter Visit Diagnoses Not on filedocumented in this encounter"
--- OUTSIDE RECORDS SUMMARY | ~2019-11-01 | XMS | Encounter Summary ---
Demographics + + + | Address | [address] | | | [place] [address] | + + + | Home Phone [...] + +------+ + | Care Sap Basis Administrator Name | Role | Phone | [...] | 09/30/ | Telephone | [facility] [place] | Daljit Singletary, | Other (Danieljoao | | 2018 | | [place] [address] | [address] [place] | remote) | | | | [place], | [place], | | | | | [place] [address] | [place] [address] | | | | | [phone] | | | | | | | [...] W | | | | | | [place], | | | | | | [place] [address] | | | | | | [phone] | | | | | | | | +--------+ + + + + | 11/20/ | Implant | Cardiology | Daljit Singletary, | Remote Device | | 2018 | Monitor | | [address] [place] | Interrogation | | | | | [place], | (Primary Dx); | | | | | [place] [address] | Presence of | | | | | [phone] | permanent cardiac | | | | [...]
--- OUTSIDE RECORDS SUMMARY | ~2019-11-01 | XMS | Encounter Summary ---
Demographics + + + | Address | [address] | | | [place] [address] | + + + | Home Phone [...] Team Providers + +------+ + | Care Dean Of Admissions Name | Role | Phone | + +------+ + PCP | Unavailable | + +------+ + Encounter Details +--------+ + + + + | Date | Type | Department | Care Team | Description | +--------+ + + + + | 01/14/ | Hospital | [facility] | Deburi, | BACKACHE NOS | | 2004 | Encounter | MEDICAL CENTER | MD [address] | | | | | CLINICAL DECISION | [place] | | | | | [address] | [place] [address] | | | | | [place], [place] | [phone] | | | | | [address] | | | | | | [phone] | | | +--------+ + + + [...] W | | | | | | [place], | | | | | | [place] [address] | | | | | | [phone] | | | | | | | | +--------+ + + + + | 11/20/ | Implant | Cardiology | Daljit Singletary, | Remote Device | | 2019 | Monitor | | MD [address] | Interrogation | | | | | [place], | (Primary Dx); | | | | | [place] [address] | Presence of | | | | | [phone] | permanent cardiac | | | | [...]
--- OUTSIDE RECORDS SUMMARY | ~2019-11-01 | XMS | Encounter Summary ---
Demographics + + + | Address | [address] | | | [place] [address] | + + + | Home Phone [...] Team Providers + +------+ + | Care Trash Collector Name | Role | Phone | [...] | | [address] | [place] [address] | | | | | [place] | [phone] | | | | | [address] | | | | | | [phone] | | | +--------+ + + + [...] | | | | | [place], | | | | | | [place] [address] | | | | | | [phone] | | | | | | | | +--------+ + + + + | 11/20/ | Implant | Cardiology | Daljit Singletary, | Remote Device | | 2018 | Monitor | | MD [address] | Interrogation | | | | | [place], | (Primary Dx); | | | | | [place] [address] | Presence of | | | | | [phone] | permanent cardiac | | | | [...]
--- OUTSIDE RECORDS SUMMARY | ~2019-11-01 | XMS | Encounter Summary ---
Demographics + + + | Address | [address] | | | [place] [address] | + + + | Home Phone [...] + +------+ + | Care Delivery Crew Worker Name | Role | Phone | [...] | MED CTR EXTERNAL | MD [address] | | | | | IMAGING | Jay [place] | | | | | [phone] | [place] [address] | | +--------+ + + + + [...] | | | | | | [place] [address] | | | | | | [phone] | | | | | | | | +--------+ + + + + | 11/20/ | Implant | Cardiology | Daljit Singletary, | Remote Device | | 2019 | Monitor | | [facility] | Interrogation | | | | | [place], | (Primary Dx); | | | | | [place] [address] | Presence of | | | | | [phone] | permanent cardiac | | | | [...] for comparison only - no result from [facility]. | | + + + + +---------+ + + | Performing | Address | City/State/Zipcode | Phone Number | | Organization | | | | + +---------+ + + | [facility] | | | | + +---------+ + + documented in this encounter Visit Diagnoses Not on filedocumented in this encounter"
--- OUTSIDE RECORDS SUMMARY | ~2019-11-01 | XMS | Encounter Summary ---
Demographics + + + | Address | [address] [place] [address] | | | [place] [address] | + + + | Home Phone [...] [place] | | | | | [address] | | + + + + + Care Team Providers + +------+ + | Care Industrial Spray Painter Name | Role | Phone | [...] | | | | | [place] | [facility] | | | | | | [place], [place] | [place], [place] | | | | | | [address] | [address] | | | | | | Phone: | Phone: | | | | | | [phone] | [phone] | | | | | | Fax: | Fax: | | | | | | [phone] | [phone] | +--------+--------+ + + + + Encounter Details +--------+---------+ + + + | Date | Type | Department | Care Team | Description | +--------+---------+ + + + | 09/28/ | Office | Dig[facility]ive [facility] | Bridgette Rios, | Chronic diarrhea | | 2019 | Visit | [facility] [address] | [address] | (Primary Dx); | | | | [address] | [place], [place] | Abdominal cramping; | | | | Mailcode: [place] | [address] | Unintentional weight | | | | for Health and | [phone] | loss | | | | [facility] | | | | | | [place], [place] | | | | | | [address] | | | | | | [phone] | | | +--------+---------+ + + + [...] some lab orders to [facility] 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 [facility] ~ Initial Consultation / New Patient [...] scan done through [facility] November show ed mild diverticulosis without evidence [...] of Present Illness: Here with his from [place] for second opinion regarding severe abdominal cramps, isreal rrhea and weight loss following a GI illness contracted during a trip to [facility]. He reports that 2 years ago he was traveling in [place] [facility] and he had some suspicious seafood. He develo ps profound bloody diarrhea with severe abdominal pain. He was hospitalized in [facility] and w as treated with [...] file Gets together: Not on file Attends christian service: Not on file Active member of [...] Plan and Recommendations: 1. [facility] in [place] for stool studies as outlined above 2. If negative and symptoms persist, recommend capsule endoscopy (this could be completed b y local tire care manager or he could return to [place] for this test) 3. Nortryptiline 25mg q HS with instruction to titrate to 50mg q HS after 2 weeks if tolera kevin Follow-Up: with local tire care manager Counseling Time: I spent a total [...] and goals for treatment. Bridgette Rios MD Speaking Unit Assembler Gastroenterology documented in this e ncounter Plan [...]
--- OUTSIDE RECORDS SUMMARY | ~2019-11-01 | XMS | Encounter Summary ---
Demographics + + + | Address | [address] | | | [place] [address] | + + + | Home Phone [...] Team Providers + +------+ + | Care Covered Buckle Assembler Name | Role | Phone | [...] | Emmanuel E, MD | [address] | | | | | unspecified | [address] | [place], | | | | | type | [place], [place] | [place] | | | | | Abdominal | [address] [place] | [address] | | | | | cramping | [place], [place] | Phone: | | | | | Generalized | [address] | [phone] | | | | | abdominal | Phone: | Fax: | | | | | pain | [phone] | [phone] | | | | | Procedures | Fax: | | | | | | CT Abdomen | [phone] | | | | | | Pelvis [...] 2019 | | GASTROENTEROLOGY | [address], [place] | (stomach cramps and | | | | [address] [place] | [address] [place], [place] | liquid stool) | | | | [address] [place], [place] | [address] | | | | | [address] | | | | | | [phone] | | | +--------+ + + + [...] | | | | | | [place] [address] | | | | | | [phone] | | | | | | | | +--------+ + + + + | 12/30/ | Implant | Cardiology | Daljit Singletary, | Remote Device | | 2019 | Monitor | | [address] [facility] | Interrogation | | | | | [place], | (Primary Dx); | | | | | [place] [address] | Presence of | | | | | [phone] | permanent cardiac | | | | [...]
--- OUTSIDE RECORDS SUMMARY | ~2019-11-01 | XMS | Encounter Summary ---
Demographics + + + | Address | [address] | | | [place] [address] | + + + | Home Phone [...] + + + + | 05/02/ | [facility] | [facility] | Jonathan, | | | 2009 | Encounter | MED CTR EMERGENCY | Martell Cr MD [address] | | | | | CENTER [address] | [place] | | | | | [place] | [place] [address] | | | | | [address] | [phone] | | | | | [phone] | | | +--------+ + + + [...] W | | | | | | [place], | | | | | | [place] [address] | | | | | | [phone] | | | | | | | | +--------+ + + + + | 11/20/ | Implant | Cardiology | Daljit Singletary, | Remote Device | | 2019 | Monitor | | MD [address] | Interrogation | | | | | [facility], | (Primary Dx); | | | | | [place] [address] | Presence of | | | | | [phone] | permanent cardiac | | | | [...]
--- OUTSIDE RECORDS SUMMARY | ~2019-11-01 | XMS | Encounter Summary ---
Demographics + + + | Address | [address] | | | [place] [address] | + + + | Home Phone [...] Providers + +------+ + | Care Bin Piler Name | Role | Phone | [...] Refill | | 2011 | | MEDICINE [facility] | DO [address] | | | | | [address] | [place] | | | | | [place] | [address] | | | | | [address] | | | | | | [phone] | | | +--------+--------+ + + + [...] | | | | | | [place] [address] | | | | | | [phone] | | | | | | | | +--------+ + + + + | 11/20/ | Implant | Cardiology | Daljit Singletary, | Remote Device | | 2019 | Monitor | | [address] [facility] | Interrogation | | | | | [place], | (Primary Dx); | | | | | [place] [address] | Presence of | | | | | [phone] | permanent cardiac | | | | [...]
[~2019-11-01 11:59] MED LIST changes: +ATORVASTATIN CA40 MG PO; +HYOSCYAMINE0.125 M1 SL; +HYOSCYAMINE0.125 MG PO; +LO-DOSE ASPIRIN81 M1 PO; +METOPROLOL SUC100 MG PO; +SERTRALINE HCL100 MG PO; +VALACYCLOVIR1000 MG PO
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
[2019-11-01] MEDS ORDERED: VITAMIN C500 M5 PO (13:22)
[2019-11-01] MEDS ORDERED: LIPITOR20 MG PO (13:22)
[2019-11-01] MEDS ORDERED: CLONAZEPAM1 MG PO (13:23)
[2019-11-01] MEDS ORDERED: CINNAMON500 MG PO (13:23)
[2019-11-01] MEDS ORDERED: BENADRYL25 MG PO (13:24)
[2019-11-01] MEDS ORDERED: LOMOTIL TABLET1 EACH PO ×2 (13:24→14:14)
[2019-11-01] MEDS ORDERED: VITAMIN B-1250 MCG PO (13:24)
[2019-11-01] MEDS ORDERED: DILAUDID4 MG PO (13:25)
[2019-11-01] MEDS ORDERED: BLACK ELDERBER1 EACH PO (13:25)
[2019-11-01] MEDS ORDERED: MSM1000 M1 PO (13:26)
[2019-11-01] MEDS ORDERED: LISINOPRIL10 MG PO (13:26)
[2019-11-01] MEDS ORDERED: NORTRIPTYLINE H25 MG PO (13:31)
[2019-11-01] MEDS ORDERED: OXYCONTIN20 MG PO (13:35)
[2019-11-01] MEDS ORDERED: ROXICODONE30 MG PO (13:37)
[2019-11-01] MEDS ORDERED: REQUIP3 MG PO (13:38)
[2019-11-01] MEDS ORDERED: PYRIDOXINE HCL25 MG PO (13:38)
[2019-11-01] MEDS ORDERED: SALMON OIL 1,01 EACH PO (13:39)
[2019-11-01] MEDS ORDERED: PROMETHAZINE HC25 M1 PO (14:14)
== END 2019-11-01 14:25 | disposition home or self-care (01) ==
LOC: ED 11:59
DX: K52.9 Noninfective gastroenteritis and colitis, unspecified (principal); I10 Essential (primary) hypertension; F17.200 Nicotine dependence, unspecified, uncomplicated; Z88.0 Allergy status to penicillin; Z88.5 Allergy status to narcotic agent; Z79.899 Other long term (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; Z79.82 Long term (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
CPT/HCPCS: 80053; 83735; 85025; 96361; 96374; 99284-25; 99406; J2550; J7030

== ENCOUNTER 2019-11-12 07:50 | Emergency (ER) | payer MEDICARE ==
[~2019-11-12] VITALS: Ht 193 cm; Wt 95.2 kg
--- OUTSIDE RECORDS SUMMARY | ~2019-11-12 | XMS | Encounter Summary ---
Demographics + + + | Address | [address] | | | [place] [address] | + + + | Home Phone | | + + + | Preferred Language | Unknown | + + + | Marital Status | | + + + | Uatsdin Affiliation | 1013 | + + + | Race | Unknown | + + + | Ethnic Group | Unknown | + + + Author + + + | Author | [facility] | | | and [place] | + + + | Organization | [facility] | | | and [place] | + + + | Address | Unknown | + + + | Phone | Unavailable | + + + Support + + +---------+ + | Name | Relationship | Address | Phone | + + +---------+ + | Maria Isabel Sanchez | ECON | Unknown | | + + +---------+ + Care Team Providers + +------+ + | Care Fisher Trawl Line Name | Role | Phone | + +------+ + PCP | Unavailable | + +------+ + Encounter Details +--------+ + + + + | Date | Type | Department | Care Team | Description | +--------+ + + + + | 01/20/ | [facility] | [facility] | Geri Angel, | | | 2009 | Encounter | MED CTR GENERIC OP | [facility]UISE STAFF MEMBER [address] | | | | | CONV DEPT [address] [place] | | | | | [place], | [id number] | | | | | [place] [address] | | | | | | [phone] | | | +--------+ + + + + Social History + +-------+ +--------+------+ | Tobacco Use | Types | Packs/Day | Years | Date | | | | | Used | | + +-------+ +--------+------+ | Never Assessed | | | | | + +-------+ +--------+------+ + + + | Sex Assigned at | Date Recorded | | | | + + + | Not on file | | + + + + + + + | Job Start Date | Occupation | Industry | + + + + | Not on file | Not on file | Not on file | + + + + + + + + | Travel History | Travel Start | Travel End | + + + + + + | No recent travel history available. | + + documented as of this encounter Plan of Treatment +--------+ + + + + | Date | Type | Specialty | Care Team | Description | +--------+ + + + + | 11/20/ | Implant | Cardiology | Daljit Singletary, | Remote Device | | 2019 | Monitor | | MD Sim [facility] | Interrogation | | | | | [place], | (Primary Dx); | | | | | [place] [address] | Presence of | | | | | [phone] | permanent cardiac | | | | | | pacemaker; | | | | | | Sinoatrial node | | | | | | dysfunction (HCC) | | | | | | with symptomatic | | | | | | bradycardia | +--------+ + + + + | 01/01/ | Office | Cardiology | Sil[place], | | | 2019 | Visit | | PARISA [place] [address] | | | | | | [place], | | | | | | [place] [address] | | | | | | [phone] | | | | | | | | +--------+ + + + + documented as of this encounter Visit Diagnoses Not on filedocumented in this encounter"
--- OUTSIDE RECORDS SUMMARY | ~2019-11-12 | XMS | Encounter Summary ---
Demographics + + + | Address | [address] | | | [place] [address] | + + + | Home Phone | | + + + | Preferred Language | Unknown | + + + | Marital Status | | + + + | Shinto Affiliation | 1013 | + + + | Race | Unknown | + + + | Ethnic Group | Unknown | + + + Author + + + | Author | [facility] | | | and [place] | + + + | Organization | [facility] | | | and [...] Team Providers + +------+ + | Care Heater Mechanic Name | Role | Phone | + +------+ + | Jacek Holm MD | PCP | | + +------+ + Reason for Visit +--------+ + | Reason | Comments | +--------+ + | Apnea | | +--------+ + Encounter Details +--------+---------+ + + + | Date | Type | Department | Care Team | Description | +--------+---------+ + + + | 04/24/ | Office | [facility] | Jay Cohn PA | DIDIER on CPAP (Primary | | 2012 | Visit | SLEEP DISORDER [address] | [address] | Dx) | | | | [address] | [place] | | | | | [place] [address] | [address] | | | | | [phone] | | | +--------+---------+ + + + Social History [...] + + + | Blood Pressure | 120/88 | 04/24/2013 10:50 AM | | | | | PDT | | + + + + + | Pulse | 88 | 04/24/2013 10:50 AM | | | | | PDT | | + + + + + | Temperature | - | - | | + + + + + | Respiratory Rate | 16 | 04/24/2013 10:50 AM | | | | | PDT | | + + + + + | Oxygen Saturation | - | - | | + + + + + | Inhaled Oxygen | - | - | | | Concentration | | | | + + + + + | Weight | 108.9 kg (240 lb) | 04/24/2013 10:50 AM | | | | | PDT | | + + + + + | Height | - | - | | + + + + + | Body Mass Index | 29.21 | 04/24/2013 9:50 AM | | | | | PDT | | + + + + + documented in this encounter Progress Jay Ruiz PA - 04/24/2013 10:47 AM PDT Subjective: Patient ID: Moe Sanchez is a 53 y.o. male. HPI last office visit was: 02/15/2013 date of polysomnography: 11/05/2010 AHI: 26.8 RDI: 43.2 O2%: 83% with 22.5 minutes below 88% Machine type: ResMed S9 with nasal pillows obtained from: [facility] [place] pressure is: 13 cm CPAP download shows CPAP useage # nights: Average usage (all nights): 1:11 Average usage (nights used): 4:01 AHI: 8.2 Amilcar comes in for CPAP compliance. He has been having problems with wearing it because he is waking during the night because he says his CPAP is "taking my breath away". His cardiol ogist has told him to start wearing his CPAP regularly. We again discussed the pathophysiol ogy of sleep apnea and the importance of wearing it consistently in order to develop into a regular part of his sleep routine. He seems to understand this and plans to work harder at wearing it. I have discussed the download in detail. This shows that his sleep apnea is somewhat contr olled, with an AHI of 8.2. It also shows that his leaks are well controlled. Review of Systems Objective: Physical Exam Assessment: Problem #1: OBSTRUCTIVE SLEEP APNEA (327.23) This is only parially controlled with CPAP, with an AHI of 8.2. He has struggled with his compliance since his last visit, but appears to be interested in wearing it regularly again. Plan: He is to continue with CPAP indefinitely. I have changed his pressure from 13 cm to a rang e of 9-17 cm. He is to go to [facility] [place] to have them download his memory card. I will readjust his pressure, if necessary. I will call him with the results. He is to work toward wearing his CPAP 100% of the time he is asleep. I will follow up again in 1 month, sooner prn. Fifteen minutes were spent [id number], wi th the majority of time spent in counseling. Jay Cohn PA-C cc: Jacek Holm MD documented in this enco unter Plan of Treatment +--------+ + + + + | Date | Type | Specialty | Care Team | Description | +--------+ + + + + | 11/20/ | Implant | Cardiology | Daljit Singletary, | Remote Device | | 2018 | Monitor | | MD [facility] | Interrogation | | | | | [place], | (Primary Dx); | | | | | [place] [address] | Presence of | | | | | [phone] | permanent cardiac | | | | [...] W | | | | | | [address] [place], | | | | | | [place] [address] | | | | | | [phone] | | | | | | | | +--------+ + + + + documented as of this encounter Visit Diagnoses + + | Diagnosis | + + | DIDIER on CPAP - Primary Obstructive sleep apnea (adult) (pediatric) | + + documented in this encounter
--- OUTSIDE RECORDS SUMMARY | ~2019-11-12 | XMS | Encounter Summary ---
Demographics + + + | Address | [address] | | | [place] [address] | + + + | Home Phone | | + + + | Preferred Language | Unknown | + + + | Marital Status | | + + + | Evangelical Affiliation | 1013 | + + + | Race | Unknown | + + + | Ethnic Group | Unknown | + + + Author + + + | Author | [facility] | | | and [place] | + + + | Organization | [facility] | | | and [...] Team Providers + +------+ + | Care Charger Operator Helper Name | Role | Phone | + +------+ + | Kirk Frenhc MD | PCP | | + +------+ + Reason for Visit + + + | Reason | Comments | + + + | Device Check | Billed | | (Remote) | | + + + Encounter Details +--------+ + + + + | Date | Type | Department | Care Team | Description | +--------+ + + + + | 11/20/ | Implant | [facility] [place] | Daljit Singletary, | Remote Device | | 2017 | Monitor | CARDIOLOGY [address] | Interrogation | | | | [place], | [place], | (Primary Dx); | | | | [place] [address] | [place] [address] | Presence of | | | | [phone] | [phone] | permanent cardiac | | | | | | pacemaker; | | | | | | Sinoatrial node | | | | | | dysfunction (HCC) | | | | | | with symptomatic | | | | | | bradycardia | +--------+ + + + + Social History + +--------+ +--------+ + | Tobacco Use | Types | Packs/Day | Years | Date | | | | | Used | | + +--------+ +--------+ + | Current Some Day | Cigars | | | Quit: 11/22/2012 | | Smoker | | | | | + +--------+ +--------+ + + +---+---+---+ [...] | 2019 | Monitor | | [address] [facility] | Interrogation | | | | | [place], | (Primary Dx); | | | | | [place] [address] | Presence of | | | | | [phone] | permanent cardiac | | | | | | pacemaker; | | | | | | Sinoatrial node | | | | | | dysfunction (HCC) | | | | | | with symptomatic | | | | | | bradycardia | +--------+ + + + + | 01/01/ | Office | Cardiology | Silvia, | | | 2020 | Visit | | PARISA [place] [address] | | | | | | [place], | | | | | | [place] [address] | | | | | | [phone] | | | | | | | | +--------+ + + + + documented as of this encounter Procedures + +--------+ + + + | Procedure Name | Priori | Date/Time | Associated Diagnosis | Comments | | | ty | | | | + +--------+ + + + | DEVICE | Routin | 11/20/2018 | Remote Device | Results for this | | INTERROGATION- | e | 11:59 PM | Interrogation | procedure are in the | | REMOTE | | PST | Presence of | results section. | | | | | permanent cardiac | | | | | | pacemaker | | | | | | Sinoatrial node | | | | | | dysfunction (HCC) | | | | | | with symptomatic | | | | | | bradycardia | | + +--------+ + + + documented in this encounter Results Device Interrogation - Remote (11/20/2018 11:59 PM PST) + + + | Narrative | Performed At | + + + | Daljit | [facility] | | MD [facility] 10/28/2018 13:33Date of Remote Interrogation: | | | 09/30/18 Refer to [facility] documentation and remote PDF scanned into | | | [facility] for remote interrogation results. Data collected by Kailey Molina | | | MONROE Pruitt Presenting rhythm: sinus rhythm atrial paced ventricular | | | sensed between 81-82 beats.1 mode switch episodes accounting for <0.1% | | | of the time.0 atrial high rate episodes. 1 ventricular high rate | | | episodes. The longest occurred 09/24/2018 at 1:07 PM for 3 seconds. | | | EGM is consistent with brief atrial tachycardia with rate 160-180 | | | beats.PVC singles 129 PVC singles 129/monthPVC runs | | | 4 PVC runs 4/monthHistogram good. Battery | | | longevity 27 months.Apparent normal and stable device function.Device | | | interrogation due in office in August 2019. | | |atrial tachycardia with rate 160-180 beats. | | |PVC singles 129 PVC singles 129/month | | |PVC runs 4 PVC runs 4/month | | |Histogram good. Battery longevity 27 months. | | |Apparent normal and stable device function. | | |Device interrogation due in office in August 2019. | | | | | + + + + +---------+ + + | Performing | Address | City/State/Zipcode | Phone Number | | Organization | | | | + +---------+ + + | [facility] | | | | + +---------+ + + documented in this encounter Visit Diagnoses + + | Diagnosis | + + | Remote Device Interrogation - Primary Fitting and adjustment of cardiac pacemaker | + + | Presence of permanent cardiac pacemaker Cardiac pacemaker in situ | + + | Sinoatrial node dysfunction (HCC) with symptomatic bradycardia Sinoatrial node | | dysfunction | + + documented in this encounter"
--- OUTSIDE RECORDS SUMMARY | ~2019-11-12 | XMS | Encounter Summary ---
Demographics + + + | Address | [address] | | | [place] [address] | + + + | Home Phone | | + + + | Preferred Language | Unknown | + + + | Marital Status | | + + + | Synagogue Affiliation | 1013 | + + + | Race | Unknown | + + + | Ethnic Group | Unknown | + + + Author + + + | Author | [facility] | | | and [place] | + + + | Organization | [facility] | | | and [place] | + + + | Address | Unknown | + + + | Phone | Unavailable | + + + Support + + +---------+ + | Name | Relationship | Address | Phone | + + +---------+ + | Maria Isabelchelo Sanchez | ECON | Unknown | | + + +---------+ + Care Team Providers + +------+ + | Care Bmet Name | Role | Phone | + +------+ + | Kirk French MD | PCP | | + +------+ + Encounter Details +--------+ + + + + | Date | Type | Department | Care Team | Description | +--------+ + + + + | 08/19/ | Orders Only | [facility] | [place], | Coronary artery | | 2015 | | CARDIOLOGY [address] | Janeen[place]ISA villarreal [address] | disease involving | | | | [place], | [place], | [place] coronary | | | | [place] [address] | [place] [address] | artery without | | | | [phone] | angina pectoris | | | | | | (Primary Dx) | +--------+ + + + + Social [...] | 2018 | Monitor | | [address] [place] | Interrogation | | | | | [place], | (Primary Dx); | | | | | [place] [address] | Presence of | | | | | [phone] | permanent cardiac | | | | [...] W | | | | | | [place], | | | | | | [place] [address] | | | | | | [phone] | | | | | | | | +--------+ + + + + documented as of this encounter Results ECG 12 lead (08/29/2015 12:38 PM PDT) + + + + + + | Component | Value | Ref Range | Performed | Pathologist | | | | | At | Signature | + + + + + + | VENTRICULAR | 74 | BPM | [facility] | | | RATE EKG | | | | | + + + + + + | ATRIAL RATE | 74 | BPM | [facility] | | + + + + + + | P-R | 230 | ms | [facility] | | | INTERVAL | | | | | + + + + + + | QRS | 100 | ms | [facility] | | | DURATION | | | | | + + + + + + | Q-T | 388 | ms | [facility] | | | INTERVAL | | | | | + + + + + + | Q-T | 430 | ms | [facility] | | | INTERVAL | | | | | | (CORRECTED) | | | | | + + + + + + | P WAVE AXIS | 36 | degrees | [facility] | | + + + + + + | QRS AXIS | 13 | degrees | [facility] | | + + + + + + | T AXIS | 38 | degrees | [facility] | | + + + + + + | INTERPRETAT | Atrial-paced rhythm with | | [facility] | | | ION TEXT | prolonged AV | | | | | | conductionAbnormal ECGNo | | | | | | previous ECGs | | | | | | availableConfirmed by | | | | | | DALJIT SINGLETARY MD | | | | | | ([id number]) on 08/29/2015 | | | | | | 1:34:06 PM | | | | + + + [...] | + +---------+ + + | [facility] | | | | + +---------+ + + documented in this encounter Visit Diagnoses + + | Diagnosis | + + | Coronary artery disease involving [place] coronary artery without angina pectoris - | | Primary | + + documented in this encounter"
--- OUTSIDE RECORDS SUMMARY | ~2019-11-12 | XMS | Encounter Summary ---
Demographics + + + | Address | [id number] [place] [address] | | | [place] [address] | + + + | Home Phone | | + + + | Preferred Language | Unknown | + + + | Marital Status | | + + + | Advent Affiliation | Unknown | + + + | Race | White | + + + | Ethnic Group | Not or | + + + Author + + + | Author | [facility] | + + + | Organization | [facility] | + + + | Address | Unknown | + + + | Phone | Unavailable | + + + Support + + + + + | Name | Relationship | Address | Phone | + + + + + | Rachel Valencia | ELIEZER | [place] | | | | | [address] | | + + + + + Care Team Providers + +------+ + | Care Warp Knitter Name | Role | Phone | + [...] | | | | | TRANSTHORACI | [place], [place] | for Health | | | | | C | [address] | and Healing, | | | | | ECHOCARDIOGR | Phone: | Building 1 | | | | | AM, ADULT | [phone] | [place], [place] | | | | | | Fax: | [address] | | | | | | [phone] | Phone: | | | | | | | [phone] | +--------+--------+ + + + + Encounter Details +--------+ + + + + | Date | Type | Department | Care Team | Description | +--------+ + + + + | 02/03/ | Hospital | Cardiac | | | | 2010 | Encounter | Non-Invasive Testing | | | | | | at [facility] [address] | | | | | | [address] Mailcode: | | | | | | [facility] | | | | | | Health and Healing, | | | | | | Building 1 | | | | | | [place], [place] | | | | | | [address] | | | | | | [phone] | | | +--------+ + + + [...]
--- OUTSIDE RECORDS SUMMARY | ~2019-11-12 | XMS | Encounter Summary ---
Demographics + + + | Address | [address] [place] [address] | | | [place] [address] | + + + | Home Phone | | + + + | Preferred Language | Unknown | + + + | Marital Status | | + + + | Zoroastrian Affiliation | Unknown | + + + | Race | White | + + + | Ethnic Group | Not or | + + + Author + + + | Author | [facility] | + + + | Organization | [facility] | + + + | Address | Unknown | + + + | Phone | Unavailable | + + + Support + + + + + | Name | Relationship | Address | Phone | + + + + + | Rachel Valencia | ELIEZER | [place] | | | | | [address] | | + + + + + Care Team Providers + +------+ + | Care Hand Thermal Cutter Name | Role | Phone | + [...] | | | | | TRANSTHORACI | [place], [place] | for Health | | | | | C | [address] | and Healing, | | | | | ECHOCARDIOGR | Phone: | Building 1 | | | | | AM, ADULT | [phone] | [place], [place] | | | | | | Fax: | [address] | | | | | | [phone] | Phone: | | | | | | | [phone] | +--------+--------+ + + + + Reason [...] | | | | | | | [place] [address] | | | | | | | Phone: | | | | | | | [phone] | | | | | | | Fax: | | | | | | | [phone] | | +--------+--------+ + + + + Encounter Details +--------+---------+ + + + | Date | Type | Department | Care Team | Description | +--------+---------+ + + + | 02/03/ | Office | Cardiology General | Arlette Drew, | Chest pain (Primary | | 2010 | Visit | at [facility] [address] | MD | Dx); Bradycardia; | | | | [address] Mailcode: | | Pacemaker | | | | [address] | | | | | | Health and Healing, | | | | | | Building | | | | | | Floor [place], [place] | | | | | | [address] | | | | | | [phone] | | | +--------+---------+ + + + [...] per Dr. Drew's note. Farooq Jamil DO Chamber Worker Clinical transition nurse/ Division of Cardiovascular Medicine Yajaira Borges, [place] - 02/09/2011 12:59 PM PDT PACEMAKER HISTORY Primary Care Provider: Darion Holden DO Operations Agent: Arlette Drew MD Moe Sanchez is a [...] chamber permanent pacemaker implantation on 06/14/09 in [place], Chronic smoker, mild DIDIER, bip olar disorder with anxiety who presents for second opinion regarding his syncopal episodes. Pt. started noticing dizzy spells and episodes of syncope about 3 years ago , pacemaker was put at the recommendation of Operations Agent Dr. Singletary from [place]. [place]. Pt. states lala bhatti was put>1 [...] form tilt table testing but NA at [facility] May need to involve endocrine and [...] Dr. Omero DREW MD CARDIOLOGY - GENERAL [address] Mailcode: [facility], 9th Floor [facility] [address] documented in this en counter Plan [...] ([facility]) | [facility] | | [facility] [address] [place] [facility] | REGIONAL | | [place] [address] | LABORATORY | + + + + + + + + | Performing | Address | City/State/Zipcode | Phone Number | | Organization | | | | + + + + + | [facility] | [address] | [place] [address] | | | LABORATORY | | | [...] RLB ([facility]) | | | [facility] [place] [address] | | | [place] [address] | | + + + + + + + + | Performing | Address | City/State/Zipcode | Phone Number | | Organization | | | | + + + + + | [facility] | [address] | [place] [address] | | | LABORATORY | | | [...] | | | DEPARTMENT | | | UKRAINIAN | | | OF | | | [...] | + + + + + | [facility] DEPARTMENT | [address] | [place] [address] | | | PATHOLOGY | [address] [...] DEPT OF | [address] | [place], [place] | | | CARDIOLOGY | [address] | [address] | | + + + + + [...] DEPT OF | [address] | [place], [place] | | | CARDIOLOGY | [address] | [address] | | + + + + + [...] + + + | Please click | [facility] DEPT OF | | on view image for the detailed interpretation from [employer] results. | CARDIOLOGY | + + + + + + + + | Performing | Address | City/State/Zipcode | Phone Number | | Organization | | | | + + + + + | [facility] DEPT OF | [address] | [place], [place] | | | CARDIOLOGY | [address] | [address] | | + + + + + documented in this encounter Visit Diagnoses + + | Diagnosis | + + | Chest pain - Primary Chest pain, unspecified | + + | Bradycardia Other specified cardiac dysrhythmias | + + | Pacemaker Cardiac pacemaker in situ | + + documented in this encounter
--- OUTSIDE RECORDS SUMMARY | ~2019-11-12 | XMS | Encounter Summary ---
Demographics + + + | Address | [address] | | | [place] [address] | + + + | Home Phone | | + + + | Preferred Language | Unknown | + + + | Marital Status | | + + + | Evangelical Affiliation | 1013 | + + + | Race | Unknown | + + + | Ethnic Group | Unknown | + + + Author + + + | Author | [facility] | | | and [place] | + + + | Organization | [facility] | | [...] Team Providers + +------+ + | Care Retail Loss Prevention Specialist Name | Role | Phone | [...] + + + + | 01/05/ | Telephone | [facility] [place] | Emmanuel Daniel MD | Other | | 2019 | | GASTROENTEROLOGY | [address], [place] | | | | | [address] [place] | [address] [place], [place] | | | | | [address] [place], [place] | [address] | | | | | [address] | | | | | | [phone] | | | +--------+ + + + [...] Dx); | | | | | [place] [address] | Presence of | | | | | [phone] | permanent cardiac | | | | [...] W | | | | | | [place], | | | | | | [place] [address] | | | | | | [phone] | | | | | | | | +--------+ + + + + documented as of this encounter Visit Diagnoses Not on filedocumented in this encounter"
--- OUTSIDE RECORDS SUMMARY | ~2019-11-12 | XMS | Encounter Summary ---
Demographics + + + | Address | [address] | | | [place] [address] | + + + | Home Phone | | + + + | Preferred Language | Unknown | + + + | Marital Status | | + + + | Yazdanism Affiliation | 1013 | + + + [...] Providers + +------+ + | Care Fisher Lampara Net Name | Role | Phone | + +------+ + | Michael Amanda DO | PCP | | + +------+ + Reason for Visit +--------+ + | Reason | Comments | +--------+ + | Other | unable to take the isosorbide | +--------+ + Encounter Details +--------+ + + + + | Date | Type | Department | Care Team | Description | +--------+ + + + + | 02/01/ | Telephone | [facility] | [place], | Other (unable to | | 2013 | | CARDIOLOGY [address] | [place] [address] | take the isosorbide) | | | | [place], | [place], | | | | | [place] [address] | [place] [address] | | | | | [phone] | [phone] | | | | | | | [...] (Primary Dx); | | | | | [place] [address] | Presence of | | | | | [phone] | permanent cardiac | | | | [...] W | | | | | | [place], | | | | | | [place] [address] | | | | | | [phone] | | | | | | | | +--------+ + + + + documented as of this encounter Visit Diagnoses + + | Diagnosis | + + | Coronary artery disease - Primary Coronary atherosclerosis of unspecified type of | | vessel, igiugig or graft | + + | Hypertension Unspecified essential hypertension | + + | Hyperlipidemia Other and unspecified hyperlipidemia | + + documented in this encounter"
--- OUTSIDE RECORDS SUMMARY | ~2019-11-12 | XMS | Encounter Summary ---
Demographics + + + | Address | [address] | | | [place] [address] | + + + | Home Phone | | + + + | Preferred Language | Unknown | + + + | Marital Status | | + + + | Adventist Affiliation | 1013 | + + + | Race | Unknown | + + + | Ethnic Group | Unknown | + + + Author + + + | Author | [facility] | | | and [place] | + + + | Organization | [facility] | | | [...] Team Providers + +------+ + | Care Account Executive Metalworking Name | Role | Phone | + +------+ + | Michael Amanda DO | PCP | | + +------+ + Encounter Details +--------+ + + + + | Date | Type | Department | Care Team | Description | +--------+ + + + + | 12/25/ | Hospital | [facility] | Daljit Singletary, | | | 2013 | Encounter | MED CTR XRAY [address] | [address] | | | | | [place] | [place], | | | | | [place] [address] | [place] [address] | | | | | [phone] | [phone] | | | | | | | [...] + + + +---------+ + + | Dixon-3 Fatty | CAPS, one capsule by | [...] | 30 | 5 | 09/25/20 | 01/09/201 | | (CARDIZEM CD) 120 mg | [...] Dx); | | | | | [place] [address] | Presence of | | | | | [phone] | permanent cardiac | | | | [...] W | | | | | | [place], | | | | | | [place] [address] | | | | | | [phone] | | | | | | | | +--------+ + + + + documented as of this encounter Procedures + +--------+ + + + | Procedure Name | Priori | Date/Time | Associated Diagnosis | Comments | | | ty | | | | + +--------+ + + + | CV DIAGNOSTIC | Routin | 12/25/2013 | | Results for this | | CARDIAC CATH | e | 10:35 AM | | procedure are in the | | | | PST | | results section. | + +--------+ + + + documented in this encounter Results CV Adult Cardiac Cath Diag/PCI (12/25/2013 10:35 AM PST) + + | Specimen | + + | | + + + + + | Narrative | Performed At | + + + | [facility] | MATHIAS | | Department [address] [place] [address] | [facility] | | [ rep [address]] [ rep [facility] | | st zip] Signed | - IMAGING | | | | | Patient Name: MOE GAY | | | Physician: MIGUELINA : 1960 Age: 53 Sex: M Unit | | | #: [id number] Exam Date: 12/25/13 Location: | | | SDS SDS-D Report #: [id number] Page: | | | %(RAD)RES..mtdd.print.filter("pg") of %(RAD) | | | RES..mtdd.print.filter("tpg") | | | | | | Accession Number: [id number] | | | LEFT HEART CATHETERIZATION, 12/25/2013 HEMODYNAMICS: | | | Aortic pressure 117/77 mmHg. LV pressure 127/0 mmHg. | | | INDICATION FOR PROCEDURE: Patient is a 53-year-old man who presents | | | with chest pain and abnormal stress test. Patient had a left heart | | | catheterization today to evaluate for the presence of coronary | | | artery disease. PROCEDURE: After informed consent | | | was obtained, the patient was taken to the cardiac clinical laboratory assistant. She | | | was prepared and draped in the usual fashion. Under sterile | | | technique and local anesthesia, percutaneous access was obtained | | | using #5 Sri [place]ankan sheath in the right radial artery. Right heart cath | | | was not performed on this patient. Left ventriculography was | | | performed using #5 multipurpose diagnostic catheter. The selective | | | coronary angiography was then performed in several sagittal and | | | oblique projections using #5 multipurpose and #5 [place]an JL 3.5 | | | diagnostic catheters. The patient received a total of 2 mg of | | | Versed and 100 mcg of fentanyl intravenously for conscious sedation | | | during the procedure. A total of 95 mL of Isovue-370 contrast was | | | utilized. The procedure was not complicated. At the | | | conclusion of the procedure, the catheter and the sheath were removed. | | | Hemostasis was obtained by using TR band application to the right | | | radial artery. Distal pulses were present and unchanged. | | | LEFT VENTRICULOGRAPHY: The left ventriculography was performed | | | in the right anterior oblique projection. The left ventricular | | | cavity is normal. LVEF is calculated at 75%. There is no mitral | | | valve regurgitation noted. SELECTIVE CORONARY ANGIOGRAPHY | | | LEFT MAIN ARTERY: The left main artery is a medium | | | caliber vessel that bifurcates into the left anterior descending | | | artery and left circumflex artery. Left main artery has mild ectatic | | | change. LEFT ANTERIOR DESCENDING ARTERY: The left | | | anterior descending artery is a medium caliber vessel that gives | | | rise to two diagonal branches. Left anterior descending artery and | | | branches are free of disease. LEFT CIRCUMFLEX ARTERY: | | | The left circumflex artery is a medium caliber nondominant vessel | | | that gives rise to three obtuse marginal branches. Left circumflex | | | artery and branches are free of disease. RIGHT | | | CORONARY ARTERY: The right coronary artery is a large caliber | | | dominant vessel that gives rise to the posterior descending artery | | | and the posterolateral artery. There is no significant disease in | | | the RCA territory. IMPRESSION: 1. NONCRITICAL | | | CORONARY ARTERY DISEASE; MILD ECTATIC CHANGE TO THE LEFT MAIN ARTERY. | | | 2. THE CORONARY CIRCULATION IS RIGHT DOMINANT. | | | 3. NORMAL LEFT VENTRICULAR SIZE, WALL THICKNESS AND MOTION, | | | PRESERVED LEFT VENTRICULAR SYSTOLIC FUNCTION. LVEF IS 75%. | | | 4. NORMAL SYSTEMIC BLOOD PRESSURE. 5. | | | SUCCESSFUL TR BAND APPLICATION TO THE RIGHT RADIAL ARTERY. | | | Dictated Date/Time: 12/25/2013 10:35 Transcribed | | | Date/Time: 12/25/2013 11:52 Solar Project Coordination Specialist: | | | <<Signature on File>> | | | Suwong | | | MD CLEOPATRA Singletary FASNanette12/25/13 1343 <Electronically signed by | | | Daljit Singletary MD, [facility], FAC, ADELINE, FASNC> Daljit | | | MD CLEOPATRA Singletary 12/25/13 1035 Solar Project Coordination Specialist: [employer] | | | Gqeunkmymtsno43/03/14 1152 | | + + + + + + + + | Performing | Address | City/State/Zipcode | Phone Number | | Organization | | | | + + + + + | [facility] | [address] | [place] | [phone] | | [facility] | | [address] | | | - IMAGING | | | | + + + + + documented in this encounter Visit Diagnoses Not on filedocumented in this encounter
--- OUTSIDE RECORDS SUMMARY | ~2019-11-12 | XMS | Encounter Summary ---
Demographics + + + | Address | [address] | | | [place] [address] | + + + | Home Phone | | + + + | Preferred Language | Unknown | + + + | Marital Status | | + + + | Judaism Affiliation | 1013 | + + + | Race | Unknown | + + + | Ethnic Group | Unknown | + + + Author + + + | Author | [facility] | | | and [place] | + + + | Organization | [facility] | | [...] Team Providers + +------+ + | Care Fiscal Services Manager Name | Role | Phone | [...] Description | +--------+--------+ + + + | 11/25/ | Refill | [facility] [place] | [place], | Medication Refill | | 2014 | | CARDIOLOGY [address] | [place] [address] | | | | | [place], | [place], | | | | | [place] [address] | [place] [address] | | | | | [phone] | [phone] | | | | | | | [...] | 11/20/ | Implant | Cardiology | Gemini Shaistakenneth, | Remote Device | | 2018 | Monitor | | [address] [place] | Interrogation | | | | | [place], | (Primary Dx); | | | | | [place] [address] | Presence of | | | | | [phone] | permanent cardiac | | | | [...] W | | | | | | [place], | | | | | | [place] [address] | | | | | | [phone] | | | | | | | | +--------+ + + + + documented as of this encounter Visit Diagnoses Not on filedocumented in this encounter"
--- OUTSIDE RECORDS SUMMARY | ~2019-11-12 | XMS | Encounter Summary ---
Demographics + + + | Address | [address] | | | [place] [address] | + + + | Home Phone | | + + + | Preferred Language | Unknown | + + + | Marital Status | | + + + | Gnosticist Affiliation | 1013 | + + + [...] Team Providers + +------+ + | Care Career Representative Name | Role | Phone | [...] + + | 06/06/ | Office | [facility] | [place], | Essential | | 2019 | Visit | CARDIOLOGY [address] | [address] | hypertension | | | | [place], | [place], | (Primary Dx); | | | | [place] [address] | [place] [address] | Sinoatrial node | | | | [phone] | [phone] | dysfunction (HCC) | | | | | | with symptomatic | | | | | | bradycardia; | | | | | | Symptomatic PVCs; | | | | | | Tachycardia; | | | | | | Coronary artery | | | | | | disease involving | | | | | | [place] coronary | | | | | | artery of [place] | | | | | | heart [...] encounter Patient Instructions Patient Instructions Julia Allen, Automotive Tire Worker - 06/06/2019 2:15 PM PDT1. Take a [...] of -critical coronary artery dise ase involving [place] coronary artery of [place] heart without angina pectoris, essential hype rtension, [...] was seen in the emergency department at [facility] in [place] due to chest pain, no medication changes at that time. On 06/02/2019 he was seen here in the [facility] department with chest pain, irregular heart bet [...] Preventative health care Coronary artery disease involving [place] coronary artery of [place] heart without angina pectoris Cannabis abuse, daily [...] 3RD DOSE, CALL 911 100 tablet 3 [place]-3 Fatty Acids (SALMON OIL-1000 PO) CAPS, one capsule by mouth daily twice daily ondansetron (ZOFRAN ODT) 4 mg disintegrating tablet Take 4 mg by mouth every 8 hours as needed for Nausea. ONE TOUCH DELICA LANCETS [facility] Check glucose as [...] RESULTS reviewed during visit today primarily from [facility]: LIPID Lab Results Component Value Date TRIG [...] BNP 47 06/02/2019 I reviewed records from [facility] for emergency department visit o n 06/02/2019 which is summarized in the HPI. RESULTS- I reviewed reports from [facility]: Ct Abdomen Pelvis W Contrast Result Date: [...] ASSESSMENT: 1. Non-critical Coronary artery disease involving [place] coronary artery of [place] heart [facility] angina pectoris: A.Normal exercise sestamibi stress test [...] performed by Dr Juan Diego Gambino at [facility] on 01/30/2013.Patient had spontaneous PVC'sfr om 3 [...] to go back in 3 days to [place] for an attempt of ablation under general [...] a normal stable device function. Estimated remaining [facility] longevity is 3.5 years. D. [...] visit, or sooner with concerns. Julia Clemente, Automotive Tire Worker am acting as a scribe on behalf of, and in the presenc e of [place]. - Reji Church 06/06/2019 15:10 Janeen Clemente ARNP, personally performed the services described in this documentati on, as scribed in my presence and it is both accurate and complete. -[place]ISA Lomas 06/06/2019 Portions of this chart may have been created with [employer] ([employer] voice recognition software. Occasi onal wrong-word or [...] Sydni Singletary, | Remote Device | | 2019 | Monitor | | [address] [facility] | Interrogation | | | | | [place], | (Primary Dx); | | | | | [place] [address] | Presence of | | | | | [phone] | permanent cardiac | | | | [...] | | | | | | [place] [address] | | | | | | [phone] | | | | | | | [...] MD | | | | | | ([id number]) on 06/06/2019 | | | | | [...] + + | Coronary artery disease involving [place] coronary artery of [place] heart without | | angina pectoris | + + | Syncope, unspecified syncope type | + + | Ascending thoracic aortic aneurysm (HCC) Thoracic aneurysm without mention of rupture | + + | Hyperlipidemia, mixed Mixed hyperlipidemia | + + documented in this encounter
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
--- OUTSIDE RECORDS SUMMARY | ~2019-11-12 | XMS | Encounter Summary ---
Demographics + + + | Address | [address] | | | [place] [address] | + + + | Home Phone [...] Team Providers + +------+ + | Care Fraud Examiner Name | Role | Phone | + +------+ + PCP | Unavailable | + +------+ + Encounter Details +--------+ + + + + | Date | Type | Department | Care Team | Description | +--------+ + + + + | 07/19/ | Hospital | [facility] | Conversion | | | 2000 | Encounter | CONVERSION | Transaction, | | | | | DEPARTMENT [address] | Provider Unknown | | | | | [address] | | | | | | [place], [place] | (Fax) | | | | | [address] | | | | | | [phone] | | | +--------+ + + + [...] 2019 | Monitor | | [address] | Interrogation | | | | | [place], | (Primary Dx); | | | | | [place] [address] | Presence of | | | | | [phone] | permanent cardiac | | | | [...] | | | | | | [place] [address] | | | | | | [phone] | | | | | | | | +--------+ + + + + documented as of this encounter Visit Diagnoses Not on filedocumented in this encounter"
--- OUTSIDE RECORDS SUMMARY | ~2019-11-12 | XMS | Encounter Summary ---
Demographics + + + | Address | [address] | | | [place] [address] | + + + | Home Phone | | + + + | Preferred Language | Unknown | + + + | Marital Status | | + + + | Anabaptist Affiliation | 1013 | + + + | Race | Unknown | + + + | Ethnic Group | Unknown | + + + Author + + + | Author | [facility] | | | and [place] | + + + | Organization | [facility] | [...] Team Providers + +------+ + | Care Retirement Sales Consultant Name | Role | Phone | + [...] | Refill | [facility] [place] | [place], | Medication Refill | | 2014 | | CARDIOLOGY [address] | [place] [address] | | | | | [place], | [place], | | | | | [place] [address] | [place] [address] | | | | | [phone] | [phone] | | | | | | | [...] | 11/20/ | Implant | Cardiology | KennethjohnsoncherelleShaistakenneth, | Remote Device | | 2018 | Monitor | | [address] [facility] | Interrogation | | | | | [place], | (Primary Dx); | | | | | [place] [address] | Presence of | | | | | [phone] | permanent cardiac | | | | [...] [place], | | | | | | [place] [address] | | | | | | [phone] | | | | | | | | +--------+ + + + + documented as of this encounter Visit Diagnoses Not on filedocumented in this encounter"
--- OUTSIDE RECORDS SUMMARY | ~2019-11-12 | XMS | Encounter Summary ---
Demographics + + + | Address | [address] | | | [place] [address] | + + + | Home Phone | | + + + | Preferred Language | Unknown | + + + | Marital Status | | + + + | Scientology Affiliation | 1013 | + + + | Race | Unknown | + + + | Ethnic Group | Unknown | + + + Author + + + | Author | [facility] | | | and [place] | + + + | Organization | [facility] | | [...] Team Providers + +------+ + | Care Cell Operator Name | Role | Phone | + +------+ + | Michael Amanda DO | PCP | | + +------+ + Encounter Details +--------+ + + + + | Date | Type | Department | Care Team | Description | +--------+ + + + + | 07/25/ | Abstract | [facility] [place] [facility] | Michael Amanda, | | | 2013 | | [facility] | DO [address] | | | | | [address] | [place] | | | | | [place] | [address] | | | | | [address] | | | | | | [phone] | | | +--------+ + + + [...] 2019 | Monitor | | [address] | Interrogation | | | | | [place], | (Primary Dx); | | | | | [place] [address] | Presence of | | | | | [phone] | permanent cardiac | | | | [...] | | | | | | [place] [address] | | | | | | [phone] | | | | | | | | +--------+ + + + + documented as of this encounter Visit Diagnoses Not on filedocumented in this encounter"
--- OUTSIDE RECORDS SUMMARY | ~2019-11-12 | XMS | Encounter Summary ---
Demographics + + + | Address | [address] | | | [place] [address] | + + + | Home Phone [...] + | Author | [facility] | | | and [place] | + + + | Organization | [facility] | | | and [...] Team Providers + +------+ + | Care Embedded Software Test Engineer Name | Role | Phone | + +------+ + | Kirk French MD | PCP | | + +------+ + Encounter Details +--------+ + + + + | Date | Type | Department | Care Team | Description | +--------+ + + + + | 10/25/ | Hospital | [facility] | Kirk French | Aneurysm (HCC) | | 2017 | Encounter | MED CTR ULTRASOUND | D, MD [address] | | | | | [address] [place] | [address] | | | | | [place], [place] | [place] [address] | | | | | [address] | [phone] | | | | | [phone] | | | | | | | [...] + + + +---------+ + + | [place]-3 Fatty | CAPS, one capsule by | [...] 2019 | Monitor | | MD [address] | Interrogation | | | | | [place], | (Primary Dx); | | | | | [place] [address] | Presence of | | | | | [phone] | permanent cardiac | | | | [...] W | | | | | | [place], | | | | | | [place] [address] | | | | | | [phone] | | | | | | | | +--------+ + + + + documented as of this encounter Visit Diagnoses + + | Diagnosis | + + | Aneurysm (HCC) Aneurysm of unspecified site | + + documented in this encounter"
--- OUTSIDE RECORDS SUMMARY | ~2019-11-12 | XMS | Encounter Summary ---
Demographics + + + | Address | [address] | | | [place] [address] | + + + | Home Phone | | + + + | Preferred Language | Unknown | + + + | Marital Status | | + + + | Sikh Affiliation | 1013 | + + + [...] Team Providers + +------+ + | Care Clinical Supervisor Name | Role | Phone | + +------+ + PCP | Unavailable | + +------+ + Encounter Details +--------+ + + + + | Date | Type | Department | Care Team | Description | +--------+ + + + + | 06/13/ | [facility] | [facility] | Daljit Singletary, | | | 2008 | Encounter | MED CTR LABORATORY | [address] | | | | | [address] [place] | [place], | | | | | [place] | [place] [address] | | | | | [address] | [phone] | | | | | [phone] | | | +--------+ + + + [...] Dx); | | | | | [place] [address] | Presence of | | | | | [phone] | permanent cardiac | | | | [...] | | | | | | [place] [address] | | | | | | [phone] | | | | | | | | +--------+ + + + + documented as of this encounter Visit Diagnoses Not on filedocumented in this encounter"
--- OUTSIDE RECORDS SUMMARY | ~2019-11-12 | XMS | Encounter Summary ---
Demographics + + + | Address | [address] | | | [place] [address] | + + + | Home Phone [...] Team Providers + +------+ + | Care Card Writer Hand Name | Role | Phone | + +------+ + | Kirk French MD | PCP | | + +------+ + Encounter Details +--------+ + + + + | Date | Type | Department | Care Team | Description | +--------+ + + + + | 01/18/ | Hospital | [facility] | Conversion | Diagnosis unknown | | 2017 | Encounter | CONVERSION [address] | Transaction, | | | | | [address] | Provider Unknown | | | | | [place], [place] | [phone] | | | | | [address] | | | | | | [phone] | | | +--------+ + + + [...] + + + +---------+ + + | [place]-3 Fatty | CAPS, one capsule by | [...] | | | | | [address] [place], | (Primary Dx); | | | | | [place] [address] | Presence of | | | | | [phone] | permanent cardiac | | | | [...] W | | | | | | [place], | | | | | | [place] [address] | | | | | | [phone] | | | | | | | [...]
--- OUTSIDE RECORDS SUMMARY | ~2019-11-12 | XMS | Encounter Summary ---
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 | Role | Phone | + +------+ + PCP | Unavailable | + +------+ + Encounter Details +--------+ + + + + | Date | Type | Department | Care Team | Description | +--------+ + + + + | 04/22/ | Hospital | [facility] | | | | 2011 | Encounter | MED CTR XRAY [address] | | | | | | [address] | | | | | | [place] [address] | | | | | | [phone] | | | +--------+ + + + [...] + + + +---------+ + + | Ralston-3 Fatty | CAPS, one capsule by | | 0 | 04/18/20 | | | Acids (SALMON | mouth daily twice | | | 12 | | | OIL-1000 PO) | daily | | | | | + + + +---------+ + + | docusate sodium | Take 100 mg by mouth | | 0 | 04/18/20 | | | (COLACE) 100 mg | Daily. | | | 12 | 3 | | capsule | | | | | | + + + +---------+ + + | lisinopril | Take 20 mg by mouth | | 0 | 03/09/20 | | | (PRINIVIL, ZESTRIL) | Daily. | | | 12 | 3 | | 20 mg tablet | | | | | | + + + +---------+ + + | MELATONIN | TABS, at bedtime as | | 0 | 03/09/20 | | | | needed | | | 12 | 8 | + + + +---------+ + + | metoprolol | Take 50 mg by mouth | | 0 | 03/09/20 | | | succinate | 2 times daily. | | | 12 | 3 | | (TOPROL-XL) 50 mg 24 | | | | | | | hr tablet | | | | | | + + + +---------+ + + | Multiple Vitamins | one by mouth daily | | 0 | 03/09/20 | | | TABS | | | | 12 | 3 | + + + +---------+ + + | Multiple | Take one by mouth | | 0 | 03/09/20 | | | Vitamins-Minerals | daily | | | 12 | 3 | | (ANTIOXIDANT | | | | | | | FORMULA) CAPS | | | | | | + + + +---------+ + + | Naproxen Sodium | CAPS, taken as | | 0 | 03/09/20 | | | (ALEVE PO) | needed | | | 12 | 3 | + + + +---------+ [...] 2019 | Monitor | | MD [address] [facility] | Interrogation | | | | | [place], | (Primary Dx); | | | | | [place] [address] | Presence of | | | | | [phone] | permanent cardiac | | | | [...] [address] | | | | | | [place], | | | | | | [place] [address] | | | | | | [phone] | | | | | | | | +--------+ + + + + documented as of this encounter Procedures + +--------+ + + + | Procedure Name | Priori | Date/Time | Associated Diagnosis | Comments | | | ty | | | | + +--------+ + + + | FL LUMBAR PUNCTURE | | 04/22/2012 | | Results for this | | DIAGNOSTIC | | 1:12 PM | | procedure are in the | | | | PDT | | results section. | + +--------+ + + + | CT LUMBAR SPINE W | | 04/22/2012 | | Results for this | | CONTRAST | | 1:12 PM | | procedure are in the | | | | PDT | | results section. | + +--------+ + + + | CT THORACIC SPINE W | | 04/22/2012 | | Results for this | | CONTRAST | | 1:12 PM | | procedure are in the | | | | PDT | | results section. | + +--------+ + + + | CT CERVICAL SPINE W | | 04/22/2012 | | Results for this | | CONTRAST | | 1:12 PM | | procedure are in the | | | | PDT | | results section. | + +--------+ + + + documented in this encounter Results CT Lumbar Spine w Contrast (04/22/2012 1:12 PM PDT) + + | Specimen | + + | | + + + + + | Narrative | Performed At | + + + | [facility] Diagnostic Imaging Department | [facility] | | [address] [facility] | [facility] | | CT MYELOGRAM LUMBAR SPINE, | DIAG IMG | | 04/22/2012 CLINICAL HISTORY: CHRONIC BACK PAIN. HISTORY OF L5-S1 | | | FUSION. TECHNIQUE: Axial images are obtained from T12 to S2. | | | These are reviewed in sagittal, axial and rodríguez l reformations. | | | COMPARISON: Cervical and thoracic CT myelogram performed this date. | | | FINDINGS: Counting from C7 down, five lumbar vertebral bodies | | | are designated, although there is part ial lumbarization of S1 with a | | | well-defined disk interspace at S1-2 and well-developed transverse | | | pro cesses on S1. A posterior pedicle screw and paris fixation is | | | present across L5-S1. Interbody bone meaghan t is seen in the | | | interspace. Endplate sclerotic changes are present. There is some | | | erosion of the spa cer into the inferior endplate of L5 with decrease | | | in the L5-S1 interspace. Alignment of the spine is maintained | | | throughout. Vertebral body heights are also normal with no fracture or | | | destructive change . No adjacent soft tissue abnormalities are | | | present. The CSF in the thecal sac is well opacified. Lev el by level | | | analysis of the axial images follows. L1-2: The conus terminates | | | at this level. Central canal is capacious with no neural foraminal | | | encroac hment. L2-3: Mild facet degenerative changes with no | | | central canal or foraminal encroachment. L3-4: Minimal | | | broad-based disk bulge. Mild facet degenerative change with mild | | | ligamentum flavum hype rtrophy. No significant central canal or | | | foraminal encroachment. L4-5: Moderate facet degenerative changes | | | with mild ligamentum flavum thickening. This produces a mil d | | | central canal stenosis. Only a mild broad-based disk bulge is present | | | but because of the facet de dios ges, this results in mild encroachment | | | at the subarticular level bilaterally. L5-S1: This is the | | | surgical level described above. No central canal or foraminal stenosis | | | is present. IMPRESSION: 1. POSTOP L5-S1 FUSION(SEE LEVEL | | | DESIGNATION DISCUSSION ABOVE). 2. MILD MULTILEVEL FACET | | | DEGENERATIVE CHANGES. NO AREAS OF NEURAL ENCROACHMENT ARE IDENTIFIED. | | | Dictated Date/Time: 04/23/2012 10:54 Transcribed Date/Time: | | | 04/23/2012 11:06 Senior Compliance Analyst: <Electronically Signed | | | by Jama Solis MD> 04/24/12 0730 | | + + + + + | Procedure Note | + + | Kevin, Rad Conversion - 12/29/2013 5:27 PM [facility] | | Diagnostic Imaging Department [address] [place] [address] | | CT MYELOGRAM LUMBAR SPINE, 04/22/2012 CLINICAL HISTORY: | | CHRONIC BACK PAIN. HISTORY OF L5-S1 FUSION. TECHNIQUE: Axial images are obtained from | | T12 to S2. These are reviewed in sagittal, axial and coronal reformations. COMPARISON: | | Cervical and thoracic CT myelogram performed this date. FINDINGS: Counting from C7 | | down, five lumbar vertebral bodies are designated, although there is partial | | lumbarization of S1 with a well-defined disk interspace at S1-2 and well-developed | | transverse processes on S1. A posterior pedicle screw and paris fixation is present across | | L5-S1. Interbody bone graft is seen in the interspace. Endplate sclerotic changes are | | present. There is some erosion of the spacer into the inferior endplate of L5 with | | decrease in the L5-S1 interspace. Alignment of the spine is maintained throughout. | | Vertebral body heights are also normal with no fracture or destructive change. No | | adjacent soft tissue abnormalities are present. The CSF in the thecal sac is well | | opacified. Level by level analysis of the axial images follows. L1-2: The conus | | terminates at this level. Central canal is capacious with no neural foraminal | | encroachment. L2-3: Mild facet degenerative changes with no central canal or foraminal | | encroachment. L3-4: Minimal broad-based disk bulge. Mild facet degenerative change with | | mild ligamentum flavum hypertrophy. No significant central canal or foraminal | | encroachment. L4-5: Moderate facet degenerative changes with mild ligamentum flavum | | thickening. This produces a mild central canal stenosis. Only a mild broad-based disk | | bulge is present but because of the facet changes, this results in mild encroachment at | | the subarticular level bilaterally. L5-S1: This is the surgical level described above. | | No central canal or foraminal stenosis is present. IMPRESSION: 1. POSTOP L5-S1 | | FUSION(SEE LEVEL DESIGNATION DISCUSSION ABOVE). 2. MILD MULTILEVEL FACET DEGENERATIVE | | CHANGES. NO AREAS OF NEURAL ENCROACHMENT ARE IDENTIFIED. Dictated Date/Time: | | 04/23/2012 10:54Transcribed Date/Time: 04/23/2012 11:06Transcriptionist: | | <Electronically Signed by Jama Solis MD> 04/24/12 8330 | | | |L3-4: Minimal broad-based disk bulge. Mild facet degenerative change with mild ligamentum f lavum hype | |rtrophy. No significant central canal or foraminal encroachment. | | | |L4-5: Moderate facet degenerative changes with mild ligamentum flavum thickening. This prod uces a mil | |d central canal stenosis. Only a mild broad-based disk bulge is present but because of the facet de dios | |ges, this results in mild encroachment at the subarticular level bilaterally. | | | |L5-S1: This is the surgical level described above. No central canal or foraminal stenosis i s present. | | | | | |IMPRESSION: | |1. POSTOP L5-S1 FUSION(SEE LEVEL DESIGNATION DISCUSSION ABOVE). | | | |2. MILD MULTILEVEL FACET DEGENERATIVE CHANGES. NO AREAS OF NEURAL ENCROACHMENT ARE IDENTIFI ED. | | | |Dictated Date/Time: 04/23/2012 10:54 | |Transcribed Date/Time: 04/23/2012 11:06 | |Senior Compliance Analyst: | |<Electronically Signed by Jama Solis MD> 04/24/12 5130 | + + + +---------+ + + | Performing | Address | City/State/Zipcode | Phone Number | | Organization | | | | + +---------+ + + | [facility] | | | | | [facility] | | | | + +---------+ + + CT Thoracic Spine w Contrast (04/22/2012 1:12 PM PDT) + + | Specimen | + + | | + + + + + | Narrative | Performed At | + + + | [facility] Diagnostic Imaging Department | [facility] | | [address] [facility] [facility] | [facility] | | THORACIC CT MYELOGRAM | DIAG IMG | | CLINICAL HISTORY: BACK PAIN. TECHNIQUE: Axial images were | | | obtained from C7 to L2. These are reviewed in sagittal, axial, and | | | cor onal reformations. FINDINGS: Alignment of the thoracic | | | spine is normal. Vertebral body heights are normally maintained at | | | each level. No fracture or compression deformity is seen and no | | | destructive lesions of bone are noted. The thecal sac is well | | | opacified with myelographic contrast material. Generally the | | | thoracic canal has a normal caliber. Minimal indentation of the | | | thecal sac is present posteriorly at T3-4, T 5-6, and T7-8. This is | | | secondary to broad-based disk bulges at these levels. As mentioned, | | | these ar e minimal, the largest at T5-6 measuring 3 mm. Little in | | | the way of bony degenerative changes are pr esent with no significant | | | osteophyte formation or facet degenerative change. The thoracic | | | cord has n ormal caliber throughout with normal appearing conus at | | | the L1-2 level. Pacemaker leads are present in the heart. No | | | other adjacent soft tissue abnormalities are present. | | | IMPRESSION: 1. CT MYELOGRAM OF THE THORACIC SPINE WITHIN NORMAL | | | RANGE FOR AGE. PLEASE SEE DETAILS ABOVE. Dictated Date/Time: | | | 04/22/2012 16:56 Transcribed Date/Time: 04/22/2012 17:32 | | | Senior Compliance Analyst: <Electronically Signed by Jama Mason | | | MD Will> 04/23/12 1039 | | + + + + + | Procedure Note | + + | Kalpesh Brown Conversion - 12/29/2013 5:27 PM [facility] | | Diagnostic Imaging Department [address] [place] [address] | | THORACIC CT MYELOGRAM CLINICAL HISTORY: BACK PAIN. | | TECHNIQUE: Axial images were obtained from C7 to L2. These are reviewed in sagittal, | | axial, and coronal reformations. FINDINGS: Alignment of the thoracic spine is normal. | | Vertebral body heights are normally maintained at each level. No fracture or | | compression deformity is seen and no destructive lesions of bone are noted. The thecal | | sac is well opacified with myelographic contrast material. Generally the thoracic canal | | has a normal caliber. Minimal indentation of the thecal sac is present posteriorly at | | T3-4, T5-6, and T7-8. This is secondary to broad-based disk bulges at these levels. As | | mentioned, these are minimal, the largest at T5-6 measuring 3 mm. Little in the way of | | bony degenerative changes are present with no significant osteophyte formation or facet | | degenerative change. The thoracic cord has normal caliber throughout with normal | | appearing conus at the L1-2 level. Pacemaker leads are present in the heart. No other | | adjacent soft tissue abnormalities are present. IMPRESSION: 1. CT MYELOGRAM OF THE | | THORACIC SPINE WITHIN NORMAL RANGE FOR AGE. PLEASE SEE DETAILS ABOVE. Dictated | | Date/Time: 04/22/2012 16:56Transcribed Date/Time: 04/22/2012 17:32Transcriptionist: | | <Electronically Signed by Jama Solis MD> 04/23/12 1039 | |e minimal, the largest at T5-6 measuring 3 mm. Little in the way of bony degenerative de dios ges are pr | |esent with no significant osteophyte formation or facet degenerative change. The thoracic cord has n | |ormal caliber throughout with normal appearing conus at the L1-2 level. Pacemaker leads ar e present | |in the heart. No other adjacent soft tissue abnormalities are present. | | | |IMPRESSION: | |1. CT MYELOGRAM OF THE THORACIC SPINE WITHIN NORMAL RANGE FOR AGE. PLEASE SEE DETAILS ABOV E. | | | |Dictated Date/Time: 04/22/2012 16:56 | |Transcribed Date/Time: 04/22/2012 17:32 | |Senior Compliance Analyst: | |<Electronically Signed by Jama Solis MD> 04/23/12 1039 | + + + +---------+ + + | Performing | Address | City/State/Zipcode | Phone Number | | Organization | | | | + +---------+ + + | [facility] | | | | | [facility] | | | | + +---------+ + + CT Cervical Spine w Contrast (04/22/2012 1:12 PM PDT) + + | Specimen | + + | | + + + + + | Narrative | Performed At | + + + | [facility] Diagnostic Imaging Department | [facility] | | [address] [facility] | [facility] | | CT MYELOGRAM CERVICAL SPINE | DIAG IMG | | CLINICAL HISTORY: PRIOR C5-6 AND C6-7 FUSIONS WITH RECURRENT CHRONIC | | | NECK PAIN AND UPPER EXTREMITY PARESTHESIAS. TECHNIQUE: | | | Contrast has been instilled into the thecal sac from a lumbar | | | approach prior to the examination. Axial images are then obtained | | | from skull base to T1. These are reviewed in axial, sagittal, and | | | coronal reformations. COMPARISON: Similar study from | | | 09/02/2009, [facility]. FINDINGS: Firm bony ankylosis | | | is present at C5-6, from prior fusion. An anterior compression | | | plate crosses C6-7. This compression plate is bent, and bowed | | | anteriorly. Screws remain in C6 and C7. Disruption of the anterior | | | compression plate is new when compared to the prior study. There | | | is reversal of the normal cervical lordotic curve above C6, with a | | | focal lordotic angulation now present at the C6-7 disk interspace. | | | Interbody bone graft has eroded into the end plates of C6 and C7, | | | and is contacting the compression plate screws. The disk | | | interspace is narrowed but still clearly visible indicating lack of | | | fusion across this level. The other disk interspaces appear to be | | | relatively well maintained. Minimal contrast material is seen | | | in the posterior fossa. The CSF in the thecal sac is well | | | opacified. Cervical cord shows normal contour throughout. Though | | | mild posterior osteophytic ridging is seen at C3-4 and C4-5, no | | | significant central canal stenosis or cord compression is present with | | | enhanced CSF present around the cord at all levels. Neural | | | foramen are also patent bilaterally at each level. Only mild facet | | | degenerative changes are seen. A small subchondral cyst is | | | present beneath the superior endplate of C4. No other bony | | | abnormalities are noted. No paravertebral fluid collections or | | | other soft tissue abnormalities are seen. IMPRESSION: 1. | | | PRIOR C5-6 FUSION WHICH APPEARS FIRM. 2. ANTERIOR BUCKLING | | | OF THE COMPRESSION PLATE ACROSS C6-7, WITH FAILED FUSION AT THAT | | | LEVEL. FOCAL LORDOTIC ANGULATION IS PRESENT AT THE C6-7 INTERSPACE. | | | 3. NO SIGNIFICANT CENTRAL CANAL OR FORAMINAL ENCROACHMENT. | | | Dictated Date/Time: 04/22/2012 16:47 Transcribed Date/Time: | | | 04/22/2012 17:25 Senior Compliance Analyst: <Electronically Signed | | | by Jama Solis MD> 04/23/12 1039 | | + + + + + | Procedure Note | + + | Kalpesh Brown Conversion - 12/29/2013 5:27 PM [facility] | | Diagnostic Imaging Department | | [address] [facility] | | | | | | | | CT MYELOGRAM CERVICAL SPINE | | | | CLINICAL HISTORY: PRIOR C5-6 AND C6-7 FUSIONS WITH RECURRENT CHRONIC NECK PAIN | | AND UPPER EXTREMITY PARESTHESIAS. | | | | TECHNIQUE: Contrast has been instilled into the thecal sac from a lumbar | | approach prior to the examination. Axial images are then obtained from skull | | base to T1. These are reviewed in axial, sagittal, and coronal reformations. | | | | COMPARISON: Similar study from 09/02/2009, [facility]. | | | | FINDINGS: Firm bony ankylosis is present at C5-6, from prior fusion. An | | anterior compression plate crosses C6-7. This compression plate is bent, and | | bowed anteriorly. Screws remain in C6 and C7. Disruption of the anterior | | compression plate is new when compared to the prior study. There is reversal | | of the normal cervical lordotic curve above C6, with a focal lordotic | | angulation now present at the C6-7 disk interspace. Interbody bone graft has | | eroded into the end plates of C6 and C7, and is contacting the compression | | plate screws. The disk interspace is narrowed but still clearly visible | | indicating lack of fusion across this level. The other disk interspaces appear | | to be relatively well maintained. | | | | Minimal contrast material is seen in the posterior fossa. The CSF in the | | thecal sac is well opacified. Cervical cord shows normal contour throughout. | | Though mild posterior osteophytic ridging is seen at C3-4 and C4-5, no | | significant central canal stenosis or cord compression is present with enhanced | | CSF present around the cord at all levels. Neural foramen are also patent | | bilaterally at each level. Only mild facet degenerative changes are seen. A | | small subchondral cyst is present beneath the superior endplate of C4. No | | other bony abnormalities are noted. No paravertebral fluid collections or | | other soft tissue abnormalities are seen. | | | | IMPRESSION: | | 1. PRIOR C5-6 FUSION WHICH APPEARS FIRM. | | | | 2. ANTERIOR BUCKLING OF THE COMPRESSION PLATE ACROSS C6-7, WITH FAILED FUSION | | AT THAT LEVEL. FOCAL LORDOTIC ANGULATION IS PRESENT AT THE C6-7 INTERSPACE. | | | | 3. NO SIGNIFICANT CENTRAL CANAL OR FORAMINAL ENCROACHMENT. | | | | Dictated Date/Time: 04/22/2012 16:47 | | Transcribed Date/Time: 04/22/2012 17:25 | | Senior Compliance Analyst: | | <Electronically Signed by Jama Solis MD> 04/23/12 1039 | + + + +---------+ + + | Performing | Address | City/State/Zipcode | Phone Number | | Organization | | | | + +---------+ + + | [facility] | | | | | [facility] | | | | + +---------+ + + FL Lumbar Puncture (04/22/2012 1:12 PM PDT) + + | Specimen | + + | | + + + + + | Narrative | Performed At | + + + | [facility] Diagnostic Imaging Department | [facility] | | [address] [facility] | [facility] | | LUMBAR MYELOGRAM INJECTION FOR CT | DIAG IMG | | CERVICAL, THORACIC AND LUMBAR MYELOGRAM CLINICAL HISTORY: | | | CHRONIC BACK PAIN. HISTORY OF PRIOR L5-S1 FUSION. PACEMAKER. | | | PROCEDURE: After confirmation of the patient's identity and review | | | of presenting documentation, the procedure of myelography with its | | | potential risks is discussed in detail. He seems to understand thi | | | s well and written consent is obtained to proceed. With the | | | patient in the prone position, an entry point to the lumbar spine at | | | L4 is chosen. Skin is marked in this region. Skin is then | | | prepped in sterile fashion and 1% lidocaine is instilled initial ly | | | along a left paramedian approach. The laminar window could not be | | | successfully crossed from this position, so anesthetic is then | | | instilled along the right paramedial region. A 22-gauge spinal needl | | | e is then advanced atraumatically into the thecal sac. Crystal | | | clear spinal fluid is obtained. Elev en mL of Isovue-300M is then | | | injected without incident. Needle is then withdrawn. Patient is | | | tilted and rotated until contrast could be seen flowing cranially. | | | No significant patient discomfort or complications occurred during | | | the procedure. Patient will proce ed to CT for scan. | | | IMPRESSION: 1. TECHNICALLY SUCCESSFUL FLUOROSCOPICALLY-GUIDED | | | MYELOGRAPHIC INJECTION AT THE L4 LEVEL. Dictated Date/Time: | | | 04/22/2012 15:51 Transcribed Date/Time: 04/22/2012 16:36 | | | Senior Compliance Analyst: <Electronically Signed by Jama Mason | | | MD Will> 04/23/12 1039 | | + + + + + | Procedure Note | + + | Kalpesh Brown Conversion - 12/29/2013 5:27 PM [facility] | | Diagnostic Imaging Department [address] [place] [address] | | LUMBAR MYELOGRAM INJECTION FOR CT CERVICAL, THORACIC AND | | LUMBAR MYELOGRAM CLINICAL HISTORY: CHRONIC BACK PAIN. HISTORY OF PRIOR L5-S1 FUSION. | | PACEMAKER. PROCEDURE: After confirmation of the patient's identity and review of | | presenting documentation, the procedure of myelography with its potential risks is | | discussed in detail. He seems to understand this well and written consent is obtained | | to proceed. With the patient in the prone position, an entry point to the lumbar spine | | at L4 is chosen. Skin is marked in this region. Skin is then prepped in sterile | | fashion and 1% lidocaine is instilled initially along a left paramedian approach. The | | laminar window could not be successfully crossed from this position, so anesthetic is | | then instilled along the right paramedial region. A 22-gauge spinal needle is then | | advanced atraumatically into the thecal sac. Crystal clear spinal fluid is obtained. | | Eleven mL of Isovue-300M is then injected without incident. Needle is then withdrawn. | | Patient is tilted and rotated until contrast could be seen flowing cranially. No | | significant patient discomfort or complications occurred during the procedure. Patient | | will proceed to CT for scan. IMPRESSION: 1. TECHNICALLY SUCCESSFUL | | FLUOROSCOPICALLY-GUIDED MYELOGRAPHIC INJECTION AT THE L4 LEVEL. Dictated Date/Time: | | 04/22/2012 15:51Transcribed Date/Time: 04/22/2012 16:36Transcriptionist: | | <Electronically Signed by Jama Solis MD> 04/23/12 1039 | | and rotated until contrast could be seen flowing cranially. | | | |No significant patient discomfort or complications occurred during the procedure. Patient will proce | |ed to CT for scan. | | | |IMPRESSION: | |1. TECHNICALLY SUCCESSFUL FLUOROSCOPICALLY-GUIDED MYELOGRAPHIC INJECTION AT THE L4 LEVEL. | | | |Dictated Date/Time: 04/22/2012 15:51 | |Transcribed Date/Time: 04/22/2012 16:36 | |Senior Compliance Analyst: | |<Electronically Signed by Jama Solis MD> 04/23/12 1039 | + + + +---------+ + + [...]
--- OUTSIDE RECORDS SUMMARY | ~2019-11-12 | XMS | Encounter Summary ---
Demographics + + + | Address | [address] | | | [place] [address] | + + + | Home Phone [...] Team Providers + +------+ + | Care Chassis Wirer Name | Role | Phone | + [...] 2018 | | GASTROENTEROLOGY | [address], [place] | about prep for | | | | [address] [place] | [address] [place], [place] | procedure) | | | | [address] [place], [place] | [address] | | | | | [address] | | | | | | [phone] | | | +--------+ + + + [...] Dx); | | | | | [place] [address] | Presence of | | | | | [phone] | permanent cardiac | | | | [...] | 2020 | Visit | | Janeen, MESSENGER FLOORPERSON [address] | | | | | | [place], | | | | | | [place] [address] | | | | | | [phone] | | | | | | | | +--------+ + + + + documented as of this encounter Visit Diagnoses Not on filedocumented in this encounter"
--- OUTSIDE RECORDS SUMMARY | ~2019-11-12 | XMS | Encounter Summary ---
Demographics + + + | Address | [address] | | | [place] [address] | + + + | Home Phone | | + + + | Preferred Language | Unknown | + + + | Marital Status | | + + + | Rastafari Affiliation | 1013 | + + + [...] Team Providers + +------+ + | Care Tube Bender Hand Name | Role | Phone | [...] | +--------+ + + + + | 06/21/ | Emergency | [facility] | Martell Hart | Chest pain, | | 2018 | | [facility] | Sanjay Palacios MD | unspecified type | | | | CENTER [address] | [address] | (Primary Dx) | | | | [place], [place] | [place], [place] | | | | | [address] | [address] | | | | | [phone] | | | +--------+ + + + [...] + + + | Blood Pressure | 126/76 | 06/21/2018 11:15 AM | | | | | PDT | | + + + + + | Pulse | 71 | 06/21/2018 12:18 PM | | | | | PDT | | + + + + + | Temperature | 36.6 C (97.9 F) | 06/21/2018 10:44 AM | | | | | PDT | | + + + + + | Respiratory Rate | 19 | 06/21/2018 12:18 PM | | | | | PDT | | + + + + + | Oxygen Saturation | 95% | 06/21/2018 12:18 PM | | | | | PDT | | + + + + + | Inhaled Oxygen | - | - | | | Concentration | | | | + + + + + | Weight | 117.9 kg (260 lb) | 06/21/2018 10:44 AM | | | | | PDT | | + + + + + | Height | - | - | | + + + + + | Body Mass Index | 31.65 | 06/20/2018 6:56 PM | | | | | PDT [...] as of this encounter Discharge Instructions Instructions Martell Hart MD - 06/21/2018Please follow-up with the cardiolo gist. Return for dizziness, chest pain, shortness of breath. documented in this encounter Medications at Time [...] + + + +---------+ + + | Arbuckle-3 Fatty | CAPS, one capsule by | [...] 0 | | | | 5-Hydroxytryptophan | times daily. | | | | 8 | | (5-HTP) 100 MG CAPS | [...] + + + +---------+ + + | azithromycin | Take 2 tablets by | 6 | 0 | 02/02/20 | | | (ZITHROMAX) 250 mg | mouth daily x 1 day, | tablet | | 18 | 8 | | tablet | then take 1 tablet | | | | | | | by mouth daily x 4 | | | | | | | days. | | | | | + + [...] | | | (FLEXERIL) 10 mg | 2 times daily. | | | | 8 | | tablet | | | | | | + + + +---------+ + + | dicyclomine | Take 1 capsule by | | 0 | 10/20/20 | | | (BENTYL) 10 mg | mouth 4 times daily. | | | 17 | 8 | | capsule | | | | | | + + + +---------+ + + | guaiFENesin | Take 10-20 mLs by | 120 mL | 0 | 02/02/20 | | | (ROBITUSSIN) 100 | mouth every 4 hours | | | 18 | 8 | | MG/5ML liquid | as needed for Cough. | | | | | + + [...] + + + +---------+ + + | VENTOLIN HFA 108 | inhale 2 puffs by | 1 | 1 | 02/02/20 | | | (90 Base) MCG/ACT | mouth every 4 hours | Inhaler | | 18 | 8 | | inhaler | if needed for cough | | | | | | | OR DIFFICULTY | | | | | | | BREATHING | | | | | + + + +---------+ + + documented as of this encounter Plan of Treatment +--------+ + + + + | Date | Type | Specialty | Care Team | Description | +--------+ + + + + | 11/20/ | Implant | Cardiology | Sydni Singletary, | Remote Device | | 2019 | Monitor | | MD [address] | Interrogation | | | | | [place], | (Primary Dx); | | | | | [place] [address] | [facility] | | | | | [phone] | permanent cardiac | | | | [...] [address] | | | | | | [address] [place], | | | | | | [place] [address] | | | | | | [phone] | | | | | | | | +--------+ + + + + + +------+--------+ + + | Name | Type | Priori | Associated Diagnoses | Date/Time | | | | ty | | | + +------+--------+ + + | ED INFORMATION | BRUNILDA | Routin | | 06/21/2018 10:41 AM | | EXCHANGE | | e | | PDT | + +------+--------+ + + | ECG 12 lead | ECG | STAT | | 06/22/2018 11:48 AM | | | | | | PDT | + +------+--------+ + + documented as of this encounter Procedures + +--------+ + + + | Procedure Name | Priori | Date/Time | Associated Diagnosis | Comments | | | ty | | | | + +--------+ + + + | TROPONIN I | STAT | 06/21/2018 | | Results for this | | | | 11:44 AM | | procedure are in the | | | | PDT | | results section. | + +--------+ + + + | PROTIME INR | STAT | 06/21/2018 | | Results for this | | | | 11:44 AM | | procedure are in the | | | | PDT | | results section. | + +--------+ + + + | CBC WITH | STAT | 06/21/2018 | | Results for this | | DIFFERENTIAL | | 11:44 AM | | procedure are in the | | | | PDT | | results section. | + +--------+ + + + | B TYPE NATRIURETIC | STAT | 06/21/2018 | | Results for this | | PEPTIDE | | 11:44 AM | | procedure are in the | | | | PDT | | results section. | + +--------+ + + + | LIPASE | STAT | 06/21/2018 | | Results for this | | | | 11:44 AM | | procedure are in the | | | | PDT | | results section. | + +--------+ + + + | COMPREHENSIVE | STAT | 06/21/2018 | | Results for this | | METABOLIC PANEL | | 11:44 AM | | procedure are in the | | | | PDT | | results section. | + +--------+ + + + | XR CHEST AP PORTABLE | STAT | 06/21/2018 | | Results for this | | | | 11:40 AM | | procedure are in the | | | | PDT | | results section. | + +--------+ + + + | OXYGEN THERAPY | STAT | 06/21/2018 | | | | | | 11:16 AM | | | | | | PDT | | | + +--------+ + + + | ECG 12 LEAD | STAT | 06/21/2018 | | Results for this | | | | 10:55 AM | | procedure are in the | | | | PDT | | results section. | + +--------+ + + + | ED INFORMATION | Routin | 06/21/2018 | | | | EXCHANGE | e | 10:41 AM | | | | | | PDT | | | + +--------+ + + + +---+--------+ | | | | | Proced | | | ure | | | Note - | | | Eneida, | | | Lab In | | | | | | Hlseve | | | n - | | | 06/21/ | | | 2017 | | | 10:42 | | | AM PDT | | | | | | Format | | | ting | | | of | | | this | | | note | | | might | | | be | | | differ | | | ent | | | from | | | the | | | origin | | | al.ENEIDA | | | E?NOTI | | | FICATI | | | ON?/ | | | | | | 8 | | | 10:39? | | | HODGEN | | | , | | | MONADER | | | ICK | | | W?MRN: | | | | | | [id number] | | | [id number] | | | his | | | patien | | | t has | | | regist | | | ered | | | at the | | | | | | Provid | | | ence | | | St[facility] | | | [facility] | [facility] | | | l | | | Center | | | | | | Emerge | | | ncy | | | Depart | | | ment | | | For | | | more | | | inform | | | ation | | | visit: | | | | | | https: | | | //secu | | | [email or web address] | | | ecarep | | | [email or web address] | | | m/arian | | | ent/60 | | | [id number] | | | -[phone]- | | | [phone] | | | fcb-b9 | | | [email or web address] | | | c51e | | | Securi | | | ty | | | Events | | | No | | | recent | | | | | | Securi | | | ty | | | Events | | | | | | curren | | | tly on | | | | | | fileED | | | Care | | | Guidel | | | inesTh | | | ere | | | are | | | curren | | | tly no | | | ED | | | Care | | | Guidel | | | queenie | | | in | | | BRUNILDA | | | for | | | this | | | patien | | | t. | | | Please | | | check | | | your | | | facili | | | ty's | | | medica | | | l | | | record | | | s | | | system | | | .Recen | | | t | | | Emerge | | | ncy | | | Depart | | | ment | | | Visit | | | Summar | | | yAdmit | | | Date | | | Facili | | | ty | | | City | | | State | | | Type | | | Major | | | Type | | | Diagno | | | ses or | | | Chief | | | | | | Compla | | | int | | | [facility] | | | 31, | | | 2018 | | | Provid | | | ence | | | [facility] | | | [facility] | | [place] | | | [place] | | | Emerge | | | ncy | | | Emerge | | | ncy | | | chest | | | pain | | | [facility] | | | 30, | | | 2018 | | | Provid | | | ence | | | [facility] | | | [facility] | | | [place] | | | [place] | | | Emerge | | | ncy | | | Emerge | | | ncy | | | | | | CP/SOB | | | | | | Chest | | | Pain | | | | | | Chest | | | pain, | | | unspec | | | ified | | | May | | | 16, | | | 2018 | | | Good | | | [facility] | | | rd | | | Health | | | Care | | | System | | | | | | [facility] | | | [place] | | | Emerge | | | ncy | | | Emerge | | | ncy | | | Chief | | | Compla | | | int: | | | LOWER | | | LEG | | | CONCER | | | NS | | | E.D. | | | Visit | | | Count | | | (12 | | | mo.)Fa | | | cility | | | | | | Visits | | | Low | | | Acuity | | | Good | | | [facility] | | | rd | | | Health | | | Care | | | System | | | 1 0 | | | [facility] | | | | | | Region | | | al | | | Medica | | | l | | | Center | | | 1 0 | | | Provid | | | ence | | | St. | | | [facility] | | | Medica | | | l | | | Center | | | 4 0 | | | [facility] | | | [place] | | | y | | | Hospit | | | al 6 0 | | | Total | | | 12 0 | | | Note: | | | Visits | | | | | | indica | | | te | | | total | | | known | | | visits | | | . | | | Medica | | | id Low | | | | | | Acuity | | | Dx | | | are | | | the | | | number | | | of | | | primar | | | y | | | diagno | | | ses on | | | the | | | Medica | | | id's | | | Low | | | Acuity | | | dx | | | list. | | | | | | Recent | | | | | | Inpati | | | ent | | | Visit | | | Summar | | | yNo | | | record | | | ed | | | inpati | | | ent | | | visits | | | . PDMP | | | | | | Report | | | PDMP | | | query | | | found | | | no | | | report | | | .[!] | | | Patien | | | t is | | | on | | | Washin | | | gton | | | PRCPro | | | vider | | | PRC | | | Type | | | Phone | | | Servic | | | e | | | Dates | | | DR | | | WILLIA | | | M | | | KALICH | | | MAN, | | | MD | | | Lock | | | In | | | (509) | | | [phone] | | | 86 | | | (509) | | | [phone] | | | 54 | | | Curren | | | t If | | | this | | | client | | | is | | | seen | | | in | | | your | | | facili | | | ty, | | | please | | | | | | notify | | | the | | | client | | | 's PCP | | | | | | and/or | | | refer | | | the | | | client | | | back | | | to | | | their | | | PCP | | | for | | | approp | | | riate | | | follow | | | -up | | | and | | | manage | | | ment | | | of | | | care. | | | If you | | | have | | | any | | | questi | | | ons or | | | | | | concer | | | ns | | | about | | | the | | | client | | | or | | | the | | | PRC | | | progra | | | m, | | | please | | | feel | | | free | | | to | | | contac | | | t us | | | at | | | [phone] | | [phone] | | | [phone] | | | ext. | | | [phone] | | | or go | | | to the | | | PRC | | | websit | | | e at | | | http:/ | | | [email or web address]. | | | [email or web address] | | | a.gov/ | | | PRR/ | | | for | | | more | | | inform | | | ation. | | | | | | Additi | | | onal | | | Care | | | Provid | | | ersPro | | | vider | | | PRC | | | Type | | | Phone | | | Fax | | | Servic | | | e | | | Dates | | | KALICH | | | MAN, | | | WILLIA | | | M | | | BRENNON, | | | M.D. | | | Guest Attendant | | | al | | | Medici | | | ne | | | (509) | | | [phone] | | | 86 | | | [phone]) | | | [phone] | | | 34 | | | Curren | | | t | | | Missael | | | o | | | Wilkins | | | - | | | ConneX | | | ions, | | | CHW | | | Case | | | or | | | Care | | | Manage | | | r | | | (541) | | | [phone] | | | 04 | | | (541) | | | [phone] | | | 10 | | | Curren | | | t | | | Criter | | | ia met | | | | | | PRCKno | | | wn | | | Aliase | | | sNo | | | known | | | aliase | | | s. The | | | above | | | | | | inform | | | ation | | | is | | | provid | | | ed for | | | the | | | sole | | | purpos | | | e of | | | patien | | | t | | | treatm | | | ent. | | | Use of | | | this | | | inform | | | ation | | | beyond | | | the | | | terms | | | of | | | Data | | | Sharin | | | g | | | Memora | | | ndum | | | of | | | Unders | | | tandin | | | g and | | | Licens | | | e | | | Agreem | | | ent is | | | | | | prohib | | | ited. | | | In | | | certai | | | n | | | cases | | | not | | | all | | | visits | | | may | | | be | | | repres | | | ented. | | | | | | Consul | | | t the | | | aforem | | | ention | | | ed | | | facili | | | ties | | | for | | | additi | | | onal | | | inform | | | ation. | | | ? | | | 2018 | | | [employer]le[employer] | | | tive | | | Medica | | | l | | | [employer] | | | logies | | | , [employer] | | | - | | | [place] | | | [place] | | | [place], | | | [place] - | | | [email or web address] | | | ollect | | | ivemed | | | icalte | | | [email or web address] | | | | +---+--------+ documented in this encounter Results Troponin I (06/21/2018 11:44 AM PDT) + + + + + + | Component | Value | Ref Range | Performed | Pathologist | | | | | At | Signature | + + + + + + | Troponin I | <0.01Comment: Reference | <0.06 ng/mL | [facility] | | | | Ranges:0.00-0.06 = | | [facility] | | | | NORMAL>0.06 = | [...] | | | | | | [employer] | | | | | [...] ST. | [address] | [place] | [phone] | | [facility] | | [address] | | | - LABORATORY | | | | + + + + + Marcelina INR (06/21/2018 11:44 AM PDT) + + + + + + | Component | Value | Ref Range | Performed | Pathologist | | | | | At | Signature | + + + + + + | Prothrombin | 12.2 | 11.3 - 13.9 | [facility] | | | Time | | seconds | [facility] | | | | | | MEDICAL | | | | | | CENTER - | | | | | | LABORATORY | | + + + + + + | INR | 0.91Comment: Usual Oral | 0.90 - 1.10 | [facility] | | | | Anticoagulation Range: | | [facility] | | | | 2.0 - 3.0High | | MEDICAL | | | | Level Oral | | CENTER - | | | | Anticoagulation Range: | | LABORATORY | | | | 2.5 - 3.5 | | | | + + + + + + + + | Specimen | + + | Blood | + + + + + + + | Performing | Address | City/State/Zipcode | Phone Number | | Organization | | | | + + + + + | [facility] | [address] | [place] | [phone] | | [facility] | | [address] | | | - LABORATORY | | | | + + + + + Lipase (06/21/2018 11:44 AM PDT) + +-------+ + + + | Component | Value | Ref Range | Performed | Pathologist | | | | | At | Signature | + +-------+ + + + | Lipase | 31 | 0 - 60 U/L | [facility] | | | | [...] [address] | [place] | [phone] | | [facility] | | [address] | | | - LABORATORY | | | | + + + + + Comprehensive Metabolic Panel (06/21/2018 11:44 AM PDT) + + + + + + | Component | Value | Ref Range | Performed | Pathologist | | | | | At | Signature | + + + + + + | Na | 138 | 136 - 149 | [facility] | | | | | mmol/L | [facility] | | | | | | MEDICAL | | | | | | CENTER - | | | | | | LABORATORY | | + + + + + + | K | 3.8 | 3.5 - 5.1 | [facility] | | | | | mmol/L | [facility] | | | | | | MEDICAL | | | | | | CENTER - | | | | | | LABORATORY | | + + + + + + | Cl | 107 | 98 - 109 mmol/L | [facility] | | | | | | [facility] | | | | | | MEDICAL | | | | | | CENTER - | | | | | | LABORATORY | | + + + + + + | CO2 | 25 | 24 - 31 mmol/L | [facility] | | | | | | [facility] | | | [facility] | [facility] | | | | | | CENTER - | | | | | | LABORATORY | | + + + + + + | Anion Gap | 6 | 3 - 16 mmol/L | [facility] | | | | | | [facility] | [facility] | | | [facility]ICAL | | | | | | CENTER - | | | | | | LABORATORY | | + + + + + + | Glucose | 78 | 70 - 109 mg/dL | [facility] | | | | | | [facility] | | | | | | MEDICAL | | | | | | CENTER - | | | | | | LABORATORY | | + + + + + + | BUN | 16 | 7 - 18 mg/dL | [facility] | | | | | | [facility] | | [facility] | | [facility] | | | | | | CENTER - | | | | | | LABORATORY | | + + + + + + | Creatinine | 0.82 | 0.60 - 1.30 | [facility] | | | | | mg/dL | [facility] | | | | | | MEDICAL | | | | | | CENTER - | | | | | | LABORATORY | | + + + + + + | eGFR if not | >60Comment: GLOMERULAR | >=60 | [facility] | | | | FILTRATION | mL/min/1.73m2 | [facility] | | | TURKISH | RATE,ESTIMATED | | MEDICAL | | | | mL/min/1.98i3Moku than | | CENTER - | | [...] | | | | mg/dL | [facility] | | | | | | MEDICAL [...] + + + + | Bilirubin | 1.1Comment: This is an | 0.1 - 1.5 mg/dL | [facility] | | | Total | appended report. These | | [facility] | | | | results have been | | MEDICAL | | | | appended to a previously | | CENTER - | | | | preliminary verified | | LABORATORY | | | | report. | | | | + + + + + + | Total | 6.6 | 6.0 - 7.8 g/dL | [facility] | | | Protein | | | [facility] | | | | | | MEDICAL | | | | | | CENTER - | | | | | | LABORATORY | | + + + + + + | AST | 30Comment: This is an | 10 - 42 U/L | [facility] | | | | appended report. These | | [facility] | | | | results have been | | MEDICAL | | | | appended to a previously | | CENTER - | | | | preliminary verified | | LABORATORY | | | | report. | | | | + + + + + + | ALT | 26Comment: This is an | 6 - 45 U/L | [facility] | | | | appended report. These | | [facility] | | | | results have been | | MEDICAL | | | | appended to a previously | | CENTER - | | | | preliminary verified | | LABORATORY | | | | report. | | | | + + + + + + | Alkaline | 55Comment: This is an | 40 - 110 U/L | [facility] | | | Phosphatase | appended report. These | | [facility] | | | | results have been | | MEDICAL | | | | appended to a previously | | CENTER - | | | | preliminary verified | | LABORATORY | | | | report. | | | | + + + + + + | Globulin | 2.7 | 2.1 - 3.8 g/dL | [facility] | | | | | | [facility] | | | | | | MEDICAL | | | | | | CENTER - | | | | | | LABORATORY | | + + + + + + | Albumin/Sandee | 1.4 | 0.8 - 2.0 | [facility] | | | bulin Ratio | | | [facility] | | | | | | MEDICAL | | | | | | CENTER - | | | | | | LABORATORY | | + + + + + + | BUN/Creatin | 19.5 | | [facility] | | | ine Ratio | | | [facility] | | | | | | MEDICAL [...] ST. | [address] | [place] | [phone] | | [facility] | | [address] | | | - LABORATORY | | | | + + + + + CBC with Differential (06/21/2018 11:44 AM PDT) + +-------+ + + + | Component | Value | Ref Range | Performed | Pathologist | | | | | At | Signature | + +-------+ + + + | WBC | 6.0 | 4.0 - 11.0 K/uL | [facility] | | | | | | [facility] | | | | | | MEDICAL | | | | | | CENTER - | | | | | | LABORATORY | | + +-------+ + + + | RBC | 4.87 | 4.30 - 5.70 | [facility] | | | | | M/uL | [facility] | | | | | | MEDICAL | | | | | | CENTER - | | | | | | LABORATORY | | + +-------+ + + + | Hemoglobin | 17.0 | 13.5 - 18.0 | [facility] | | | | | g/dL | [facility] | | | | | | MEDICAL | | | | | | CENTER - | | | | | | LABORATORY | | + +-------+ + + + | Hematocrit | 48.6 | 40.0 - 51.0 % | [facility] | | | | | | [facility] | | | | | | MEDICAL | | | | | | CENTER - | | | | | | LABORATORY | | + +-------+ + + + | MCV | 99.7 | 83.0 - 101.0 fL | [facility] | | | | | | [facility] | | | | | | MEDICAL | | | | | | CENTER - | | | | | | LABORATORY | | + +-------+ + + + | MCH | 35.0 | 28.0 - 35.0 pg | [facility] | | | | | | [facility] | | | | | | MEDICAL | | | | | | CENTER - | | | | | | LABORATORY | | + +-------+ + + + | MCHC | 35.1 | 32.0 - 36.0 | [facility] | | | | | g/dL | [facility] | | | | | | MEDICAL | | | | | | CENTER - | | | | | | LABORATORY | | + +-------+ + + + | RDW-CV | 12.7 | <15.0 % | [facility] | | | | | | [facility] | | | | | | MEDICAL | | | | | | CENTER - | | | | | | LABORATORY | | + +-------+ + + + | Platelet | 144 | 140 - 440 K/uL | [facility] | | | Count | | | [facility] | | | | | | MEDICAL | | | | | | CENTER - | | | | | | LABORATORY | | + +-------+ + + + | MPV | 10.1 | fL | [facility] | | | | | | [facility] | | | | | | MEDICAL | | | | | | CENTER - | | | | | | LABORATORY | | + +-------+ + + + | % | 52.1 | 45.0 - 82.0 % | [facility] | | | Neutrophils | | | [facility] | | | | | | MEDICAL | | | | | | CENTER - | | | | | | LABORATORY | | + +-------+ + + + | % | 35.3 | 20.0 - 45.0 % | [facility] | | | Lymphocytes | | | [facility] | | | | | | MEDICAL | | | | | | CENTER - | | | | | | LABORATORY | | + +-------+ + + + | % Monocytes | 10.0 | 4.0 - 12.0 % | [facility] | | | | | | [facility] | | | | | | MEDICAL | | | | | | CENTER - | | | | | | LABORATORY | | + +-------+ + + + | % | 1.6 | 0.0 - 5.0 % | [facility] | | | Eosinophils | | | [facility] | [...] +-------+ + + + | Absolute | 3.10 | 1.80 - 8.50 | [facility] | | | Neutrophils | | K/uL | [facility] | | [facility] | | | MEDICAL | | | | | | CENTER - | | | | | | LABORATORY | | + +-------+ + + + | Absolute | 2.10 | 0.60 - 3.20 | [facility] | | | Lymphocytes | | K/uL | [facility] | | | | | | MEDICAL | | | | | | CENTER - | | | | | | LABORATORY | | + +-------+ + + + | Absolute | 0.60 | 0.00 - 1.00 | [facility] | | | Monocytes | | K/uL | [facility] | | | | | | MEDICAL | | | | | | CENTER - | | | | | | LABORATORY | | + +-------+ + + + | Absolute | 0.10 | 0.00 - 0.40 | [facility] | [...] ST. | [address] | [place], [place] | [phone] | | [facility] | | [address] | | | - LABORATORY | | | | + + + + + B Type Natriuretic Peptide (06/21/2018 11:44 AM PDT) + +-------+ + + + | Component | Value | Ref Range | Performed | Pathologist | | | | | At | Signature | + +-------+ + + + | BNP | 42 | <100 pg/mL | [facility] | | | | | [...] + | [facility] | [address] | [place] | [phone] | | [facility] | | [address] | | | - LABORATORY | | | | + + + + + XR Chest AP Portable (06/21/2018 11:40 AM PDT) + + | Specimen | + + | | + + + + + | Narrative | Performed At | + + + | XR Chest AP Portable 06/21/2018 11:35 AM HISTORY: Chest pain. | [facility] | | COMPARISON: Multiple priors. Findings: A left pacemaker is | | | present with leads to the right atrium and right ventricle. Heart | | | size is normal. Aorta is normal. Mediastinum is unremarkable. Central | | | pulmonary vasculature is normal. The bilateral lungs are clear with | | | no evidence for pleural effusion or pneumothorax. There is fusion | | | hardware in the cervical spine that is partially imaged. | | | IMPRESSION - No acute findings. Dictated and Signed by: Nuno | | | MD Reese Electronically signed: 06/21/2018 11:36 AM | | + + + + + | Procedure Note | + + | Eneida, Rad Results In - 06/21/2018 11:40 AM PDT XR Chest AP Portable 06/21/2018 11:35 AM | | | | HISTORY: Chest pain. | | | | COMPARISON: Multiple priors. | | | | Findings: | | A left pacemaker is present with leads to the right atrium and right ventricle. | | Heart size is normal. Aorta is normal. Mediastinum is unremarkable. Central | | pulmonary vasculature is normal. The bilateral lungs are clear with no evidence | | for pleural effusion or pneumothorax. There is fusion hardware in the cervical | | spine that is partially imaged. | | | | IMPRESSION - | | No acute findings. | | | | Dictated and Signed by: Nuno Leigh MD | | Electronically signed: 06/21/2018 11:36 AM | + + + +---------+ + + | Performing | Address | City/State/Zipcode | Phone Number | | Organization | | | | + +---------+ + + | [facility] | | | | + +---------+ + + ECG 12 lead (06/21/2018 10:55 AM PDT) + + + + + + | Component | Value | Ref Range | Performed | Pathologist | | | | | At | Signature | + + + + + + | VENTRICULAR | 70 | BPM | [facility] | | | RATE EKG | | | | | + + + + + + | ATRIAL RATE | 70 | BPM | [facility] | | + + + + + + | P-R | 212 | ms | [facility] | | | INTERVAL | | | | | + + + + + + | QRS | 102 | ms | [facility] | | | DURATION | | | | | + + + + + + | Q-T | 394 | ms | [facility] | | | INTERVAL | | | | | + + + + + + | Q-T | 425 | ms | [facility] | | | INTERVAL | | | | | | (CORRECTED) | | | | | + + + + + + | P WAVE AXIS | 8 | degrees | [facility] | | + + + + + + | QRS AXIS | 21 | degrees | [facility] | | + + + + + + | T AXIS | 5 | degrees | [facility] | | + + + + + + | INTERPRETAT | Atrial-paced rhythm with | | [facility] | | | ION TEXT | prolonged AV | | | | | | conductionAbnormal | | | | | | ECGWhen compared with | | | | | | ECG of 20-JUN-2018 | | | | | | 21:07,No significant | | | | | | change was | | | | | | foundConfirmed by | | | | | | GURJIT WINKLER, SYDNI | | | | | | ([id number]) on 06/22/2018 | | | | | | 1:35:56 PM | | | | + + [...]
--- OUTSIDE RECORDS SUMMARY | ~2019-11-12 | XMS | Encounter Summary ---
Demographics + + + | Address | [address] | | | [place] [address] | + + + | Home Phone [...] Team Providers + +------+ + | Care [place] Name | Role | Phone | + +------+ + PCP | Unavailable | + +------+ + Encounter Details +--------+ + + + + | Date | Type | Department | Care Team | Description | +--------+ + + + + | 01/31/ | Hospital | [facility] | | | | 2008 | Encounter | [facility] | | | | | | [place] [address] | | | | | | [place] | | | | | | [address] | | | | | | [phone] | | | +--------+ + + + [...] Dx); | | | | | [place] [address] | 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
--- OUTSIDE RECORDS SUMMARY | ~2019-11-12 | XMS | Encounter Summary ---
Demographics + + + | Address | [address] | | | [place] [address] | + + + | Home Phone [...] Team Providers + +------+ + | Care Brand Advocate Name | Role | Phone | + [...] | +--------+ + + + + | 06/23/ | Procedure | [facility] [place] | Daljit Singletary, | Pacemaker | | 2016 | visit | CARDIOLOGY [address] | reprogramming/check | | | | [place], | [place], | DO NOT DELETE | | | | [place] [address] | [place] [address] | (Primary Dx); | | | | [phone] | [phone] | Sinoatrial node | | | | | | dysfunction ([facility]) | | | | | | with symptomatic | | | | | | bradycardia; | | | | | | Pacemaker - | | | | | | Medtronic - [id number] | | | | | | Adapta - Implanted | | | | | | 06/14/2009 | +--------+ + + + + Social [...] Dx); | | | | | [place] [address] | Presence of | | | | | [phone] | permanent cardiac | | | | [...] | | | | | | [place] [address] | | | | | | [phone] | | | | | | | | +--------+ + + + + documented as of this encounter Procedures + +--------+ + + + | Procedure Name | Priori | Date/Time | Associated Diagnosis | Comments | | | ty | | | | + +--------+ + + + | DEVICE INTERROGATION | Routin | 06/23/2016 | Pacemaker | Results for this | | | e | 12:00 AM | reprogramming/check | procedure are in the | | | | PDT | DO NOT DELETE | results section. | | | | | Sinoatrial node | | | | | | dysfunction (HCC) | | | | | | with symptomatic | | | | | | bradycardia | | | | | | Pacemaker - | | | | | | Medtronic - ADDR01 | | | | | | Adapta - Implanted | | | | | | 06/14/2009 | | + +--------+ + + + documented in this encounter Results Device Interrogation (06/23/2016 12:00 AM PDT) + + + | Narrative | Performed At | + + + | Daljit | [facility] | | MD Gemini 06/23/2016 16:09 PATIENT NAME: Moe Bradley | | | Laura : 1960: AGE: 56 y.o. Pacemaker Evaluation | | | Report June 23, 2016 Reason for evaluation: routineIndication for | | | pacemaker: ICD-10-CM ICD-9-CM 1. Pacemaker reprogramming/check DO | | | NOT DELETE Z45.018 V53.31 Device Interrogation 2. Sinoatrial node | | | dysfunction (HCC) with symptomatic bradycardia I49.5 427.81 Device | | | Interrogation 3. Pacemaker - Medtronic - ADDR01 Adapta - Implanted | | | 06/14/2009 Z95.0 V45.01 Device Interrogation Patient was seated and | | | reclined and device was interrogated. Pacemaker parameters, battery | | | status, percentages pacing and significant arrhythmias were reviewed. | | | Heart rate histograms were assessed for adequate heart rate response | | | and any alerts reviewed. Appropriate lead impedance testing was | | | performed. Pacing impedances were reviewed for any significant | | | changes. Sensing tests were performed by decreasing LRL. Adequacy of | | | pacing thresholds were tested by increasing LRL for each lead and | | | recorded for loss of capture. Final outputs were assessed for adequate | | | safety margins. Please see the scanned Paceart report and device PDF | | | for further details.Data collected by Kailey Pruitt RN The technical | | | aspect of downloading device data was supervised by Daljit | | | MD Gemini Underlying rhythm: Sinus bradycardia 37 beats.No | | | episodes. Histogram fair. Battery longevity 4.5 years.Normal and | | | stable device function.Prefers office checks. Device interrogation due | | | in office in 6 months. | | |significant arrhythmias were reviewed. Heart rate histograms were | | |assessed for adequate heart rate response and any alerts | | |reviewed. Appropriate lead impedance testing was performed. | | |Pacing impedances were reviewed for any significant changes. | | |Sensing tests were performed by decreasing LRL. Adequacy of | | |pacing thresholds were tested by increasing LRL for each lead and | | |recorded for loss of capture. Final outputs were assessed for | | |adequate safety margins. | | | | | |Please see the scanned Paceart report and device PDF for further | | |details. | | |Data collected by Kailey Pruitt RN | | | | | |The technical aspect of downloading device data was supervised by | | |Daljit Singletary MD | | | | | |Underlying rhythm: Sinus bradycardia 37 beats. | | |No episodes. | | |Histogram fair. Battery longevity 4.5 years. | | |Normal and stable device function. | | |Prefers office checks. | | |Device interrogation due in office in 6 months. | | + + + + + | Procedure Note | + + | Daljit Singletary MD - 06/23/2016 3:43 PM PDT Formatting of this note might be | | different from the original.PATIENT NAME: Moe Sanchez : 1960: | | AGE: 56 y.o.[facility]Reason for evaluation: | | routineIndication for pacemaker: ICD-10-CM ICD-9-CM 1. Pacemaker reprogramming/check | | DO NOT DELETE Z45.018 V53.31 Device Interrogation 2. Sinoatrial node dysfunction (HCC) | | with symptomatic bradycardia I49.5 427.81 Device Interrogation 3. Pacemaker - Medtronic | | - ADDR01 Adapta - Implanted 06/14/2009 Z95.0 V45.01 Device Interrogation Patient was | | seated and reclined and device was interrogated. Pacemaker parameters, battery status, | | percentages pacing and significant arrhythmias were reviewed. Heart rate histograms were | | assessed for adequate heart rate response and any alerts reviewed. Appropriate lead | | impedance testing was performed. Pacing impedances were reviewed for any significant | | changes. Sensing tests were performed by decreasing LRL. Adequacy of pacing thresholds | | were tested by increasing LRL for each lead and recorded for loss of capture. Final | | outputs were assessed for adequate safety margins.Please see the scanned Paceart report | | and device PDF for further details.Data collected by Kailey Pruitt RNThe technical | | aspect of downloading device data was supervised by Daljit Singletary MDUnderlying | | rhythm: Sinus bradycardia 37 beats.No episodes. Histogram fair. Battery longevity 4.5 | | years.Normal and stable device function.Prefers office checks. Device interrogation due | | in office in 6 months. | |Patient was seated and reclined and device was interrogated. Pacemaker parameters, battery status, percentages pacing and significant arrhythmias were reviewed. Heart rate histograms were assessed for adequate heart rate | |response and any alerts reviewed. Appropriate lead impedance testing was performed. Pacing impedances were reviewed for any significant changes. Sensing tests were performed by decrea sing LRL. Adequacy of pacing | |thresholds were tested by increasing LRL for each lead and recorded for loss of capture. Fi nal outputs were assessed for adequate safety margins. | | | |Please see the scanned Paceart report and device PDF for further details. | |Data collected by Kailey Pruitt RN | | | |The technical aspect of downloading device data was supervised by Daljit Singletary MD | | | |Underlying rhythm: Sinus bradycardia 37 beats. | |No episodes. | |Histogram fair. Battery longevity 4.5 years. | |Normal and stable device function. | |Prefers office checks. | |Device interrogation due in office in 6 months. | + + + +---------+ + + [...] | cardiac pacemaker | + + | Sinoatrial node dysfunction (HCC) with symptomatic bradycardia Sinoatrial node | | dysfunction | + + | Pacemaker - Medtronic - ADDR01 Adapta - Implanted 06/14/2009 Cardiac pacemaker in situ | + + documented in this encounter"
--- OUTSIDE RECORDS SUMMARY | ~2019-11-12 | XMS | Encounter Summary ---
Demographics + + + | Address | [address] | | | [place] [address] | + + + | Home Phone [...] Team Providers + +------+ + | Care African Studies Professor Name | Role | Phone | + +------+ + | Kirk French MD | PCP | | + +------+ + Reason for Visit +--------+ + | Reason | Comments | +--------+ + | Other | issues with edema and chest pain | +--------+ + Encounter Details +--------+ + + + + | Date | Type | Department | Care Team | Description | +--------+ + + + + | 08/06/ | Telephone | [facility] [place] | Stanley, Geri, | Other (issues with | | 2014 | | CARDIOLOGY [address] | [facility]MO[facility]ER [address] | edema and chest | | | | [place], | [facility], [place] | pain) | | | | [place] [address] | [address] | | | | | [phone] | | | +--------+ + + + [...] Dx); | | | | | [place] [address] | Presence of | | | | | [phone] | permanent cardiac | | | | [...] [place], | | | | | | [place] [address] | | | | | | [phone] | | | | | | | | +--------+ + + + + documented as of this encounter Visit Diagnoses Not on filedocumented in this encounter"
--- OUTSIDE RECORDS SUMMARY | ~2019-11-12 | XMS | Encounter Summary ---
Demographics + + + | Address | [address] | | | [place] [address] | + + + | Home Phone | | + + + | Preferred Language | Unknown | + + + | Marital Status | | + + + | Protestant Affiliation | 1013 | + + + | Race | Unknown | + + + | Ethnic Group | Unknown | + + + Author + + + | Author | [facility] | | | and [place] | + + + | Organization | [facility] | | | and [place] | + + + | Address | Unknown | + + + | Phone | Unavailable | + + + Support + + +---------+ + | Name | Relationship | Address | Phone | + + +---------+ + | Maria Isabelchelo Sacnhez | ECON | Unknown | | + + +---------+ + Care Team Providers + +------+ + | Care Supervisor Knitting Name | Role | Phone | + [...] loss | [address] | [address], | | | | | Anxiety | [address] | [address] | | | | | disorder, | [address] | [place], | | | | | unspecified | [place], [place] | [place] [address] | | | | | Chronic | [address] | Phone: | | | | | pain | Phone: | [phone] | | | | | syndrome | [phone] | Fax: | | | | | Procedures | Fax: | [phone] | | | | | office visit | [phone] | | +--------+--------+ + + + + Encounter Details +--------+---------+ + + + | Date | Type | Department | Care Team | Description | +--------+---------+ + + + | 12/26/ | Office | [facility] | Emmanuel Daniel MD | Functional diarrhea | | 2019 | Visit | GASTROENTEROLOGY | [address], [place] | (Primary Dx); | | | | [address] | [address] [place], [place] | Gastrointestinal | | | | [address] [place], [place] | [address] | hemorrhage | | | | [address] | | associated with | | | | [phone] | | anorectal source; | | | [...] | | [facility] | Interrogation | | | | | [place], | (Primary Dx); | | | | | [place] [address] | Presence of | | | | | [phone] | permanent cardiac | | | | [...] | | | | | | [place] [address] | | | | | | [phone] | | | | | | | [...]
--- OUTSIDE RECORDS SUMMARY | ~2019-11-12 | XMS | Encounter Summary ---
Demographics + + + | Address | [address] | | | [place] [address] | + + + | Home Phone [...] Providers + +------+ + | Care Home Visit Field Care Manager Name | Role | Phone | [...] [address] | | | | | [place], | [place], | | | | | [place] [address] | [place] [address] | | | | | [phone] | [phone] | | | | | | | [...] | +--------+ + + + + | 12/30/ | Implant | Cardiology | Daljit Singletary, | Remote Device | | 2018 | Monitor | | [address] [place] | Interrogation | | | | | [place], | (Primary Dx); | | | | | [place] [address] | Presence of | | | | | [phone] | permanent cardiac | | | | [...] W | | | | | | [place], | | | | | | [place] [address] | | | | | | [phone] | | | | | | | [...] | EXTERNAL LAB: [facility] | Routin | 05/12/2016 | | Results for this | | | e | | | procedure are in the | | | | | | results section. | + +--------+ + + + | EXTERNAL LAB: [facility] | Routin | 05/12/2016 | | Results [...] [address] | [place] | [phone] | | [facility] | | [address] | | | - LABORATORY | | [...]
--- OUTSIDE RECORDS SUMMARY | ~2019-11-12 | XMS | Encounter Summary ---
Demographics + + + | Address | [address] | | | [place] [address] | + + + | Home Phone [...] Team Providers + +------+ + | Care Newspaper Managing Editor Name | Role | Phone | + +------+ + | Michael Amanda DO | PCP | | + +------+ + Encounter Details +--------+ + + + + | Date | Type | Department | Care Team | Description | +--------+ + + + + | 09/29/ | Abstract | [place] [facility] | Jay Gambino MD | | | 2012 | | Conversion Location | [address] | | | | | [phone] | [address] [place], | | | | | | [place] [address] | | | | | | [phone] | | | | | | | [...] 2019 | Monitor | | MD [facility] | Interrogation | | | | | [place], | (Primary Dx); | | | | | [place] [address] | Presence of | | | | | [phone] | permanent cardiac | | | | [...] | | | | | | [place] [address] | | | | | | [phone] | | | | | | | | +--------+ + + + + documented as of this encounter Visit Diagnoses Not on filedocumented in this encounter"
--- OUTSIDE RECORDS SUMMARY | ~2019-11-12 | XMS | Encounter Summary ---
Demographics + + + | Address | [address] | | | [place] [address] | + + + | Home Phone | | + + + | Preferred Language | Unknown | + + + | Marital Status | | + + + | Buddhism Affiliation | 1013 | + + + | Race | Unknown | + + + | Ethnic Group | Unknown | + + + Author + + + | Author | [facility] | | | and [place] | + + + | Organization | [facility] | | | and [...] Providers + +------+ + | Care Supervisor Screen Making Name | Role | Phone | + [...] [address] | | | | | [place], | [place], | | | | | [place] [address] | [place] [address] | | | | | [phone] | [phone] | | | | | | | [...] | 2018 | Monitor | | [address] [place] | Interrogation | | | | | [place], | (Primary Dx); | | | | | [place] [address] | Presence of | | | | | [phone] | permanent cardiac | | | | | | pacemaker; | | | | | | Sinoatrial node | | | | | | dysfunction (HCC) | | | | | | with symptomatic | | | | | | bradycardia | +--------+ + + + + | 01/01/ | Office | Cardiology | Sil[place], | | | 2019 | Visit | | [address] | | | | | | [place], | | | | | | [place] [address] | | | | | | [phone] | | | | | | | | +--------+ + + + + documented as of this encounter Visit Diagnoses Not on filedocumented in this encounter"
--- OUTSIDE RECORDS SUMMARY | ~2019-11-12 | XMS | Encounter Summary ---
Demographics + + + | Address | [address] | | | [place] [address] | + + + | Home Phone [...] Team Providers + +------+ + | Care Detonator Maker Name | Role | Phone | + [...] | MED CTR EXTERNAL | [address] | | | | | IMAGING | [place] | | | | | [phone] | [place] [address] | | +--------+ + + + + [...] Dx); | | | | | [place] [address] | Presence of | | | | | [phone] | permanent cardiac | | | | [...] | | | | | | [place], | | | | | | [place] [address] | | | | | | [phone] | | | | | | | [...] for comparison only - no result from [place]. | | + + + + +---------+ + + | Performing | Address | City/State/Zipcode | Phone Number | | Organization | | | | + +---------+ + + | [facility] | | | | + +---------+ + + documented in this encounter Visit Diagnoses Not on filedocumented in this encounter"
--- OUTSIDE RECORDS SUMMARY | ~2019-11-12 | XMS | Encounter Summary ---
Demographics + + + | Address | [address] | | | [place] [address] | + + + | Home Phone [...] Team Providers + +------+ + | Care Dieing Out Machine Operator Name | Role | Phone [...] 2019 | | GASTROENTEROLOGY | [address], [place] | | | | | [address] | [address] [place], [place] | | | | | [address] [place], [place] | [address] | | | | | [address] | | | | | | [phone] | | | +--------+ + + + [...] 2019 | Monitor | | [address] | Interrogation | | | | | [place], | (Primary Dx); | | | | | [place] [address] | Presence of | | | | | [phone] | permanent cardiac | | | | [...] 2020 | Visit | | [address] | | | | | | [place], | | | | | | [place] [address] | | | | | | [phone] | | | | | | | | +--------+ + + + + documented as of this encounter Visit Diagnoses Not on filedocumented in this encounter"
--- OUTSIDE RECORDS SUMMARY | ~2019-11-12 | XMS | Encounter Summary ---
Demographics + + + | Address | [address] [place] [address] | | | [place] [address] | + + + | Home Phone | | + + + | Preferred Language | Unknown | + + + | Marital Status | | + + + | Sikh Affiliation | Unknown | + + + [...] [place] | | | | | [address] | | + + + + + Care Team Providers + +------+ + | Care Brand Lead Name | Role | Phone | + +------+ + | Darion Holden DO | PCP | | + +------+ + Reason for Visit + + + | Reason | Comments | + + + | Lab Order | | + + + Encounter Details +--------+ + + + + | Date | Type | Department | Care Team | Description | +--------+ + + + + | 10/03/ | Telephone | [facility]ive [facility] | Bridgette Rios, | Lab Order | | 2019 | | Center at [facility] [address] | [address] | | | | | [address] | [place], [place] | | | | | Mailcode: [place] | [address] | | | | | [facility] and | [phone] | | | | | [place] [address] | | | | | | [place], [place] | | | | | | [address] | | | | | | [phone] | | | +--------+ + + + [...] of this encounter Plan of Treatment + +------+--------+ + + | Name | Type | Priori | Associated Diagnoses | Order Schedule | | | | ty | | | + +------+--------+ + + | OVA AND PARASITE | Lab | Routin | Diarrhea of | Expected: 10/03/2019 | | EXAM | | e | presumed infectious | (Approximate), | | | | | origin | Expires: 11/02/2020 | + +------+--------+ + + | GIARDIA SCREEN EIA, | Lab | Routin | Diarrhea of | Expected: 10/03/2019 | | STOOL | | e | presumed infectious | (Approximate), | | | | | origin | Expires: 11/02/2020 | + +------+--------+ + + | CRYPTOSPORIDIUM | Lab | Routin | Diarrhea of | Expected: 10/03/2019 | | EXAM, STOOL | | e | presumed infectious | (Approximate), | | | | | origin | Expires: 11/02/2020 | + +------+--------+ + + | LAB OTHER | Lab | Routin | Diarrhea of | Expected: 10/03/2019 | | | | e | presumed infectious | (Approximate), | | | | | origin | Expires: 11/02/2020 | + +------+--------+ + + | CALPROTECTIN, FECAL | Lab | Routin | Diarrhea of | Ordered: 10/03/2019 | | | | e | presumed infectious | | | | | | origin | | + +------+--------+ + + | PANCREATIC ELASTASE, | Lab | Routin | Diarrhea of | Expected: 10/03/2019 | | STOOL | | e | presumed infectious | (Approximate), | | | | | origin | Expires: 11/02/2020 | + +------+--------+ + + | LAB OTHER | Lab | Routin | Diarrhea of | Expected: 10/03/2019 | | | | e | presumed infectious | (Approximate), | | | | | origin | Expires: 11/02/2020 | + +------+--------+ + + documented as of this encounter Visit Diagnoses + + | Diagnosis | + + | Diarrhea of presumed infectious origin - Primary | + + documented in this encounter"
--- OUTSIDE RECORDS SUMMARY | ~2019-11-12 | XMS | Encounter Summary ---
Demographics + + + | Address | [address] | | | [place] [address] | + + + | Home Phone [...] Team Providers + +------+ + | Care Business Account Leader Name | Role | Phone | [...] + + | 12/09/ | Telephone | [facility] | Emmanuel Daniel MD | Appointment (EGD, | | 2017 | | GASTROENTEROLOGY | [address], [place] | colon Rescheduled to | | | | [address] | [address] [place] | December 24 due to | | | | [address] [place] | [address] | illness) | | | | [address] | | | | | | [phone] | | | +--------+ + + + [...] | 2019 | Monitor | | [facility] | Interrogation | | | | | [place], | (Primary Dx); | | | | | [place] [address] | Presence of | | | | | [phone] | permanent cardiac | | | | [...] | | | | | | [place] [address] | | | | | | [phone] | | | | | | | | +--------+ + + + + documented as of this encounter Visit Diagnoses Not on filedocumented in this encounter"
--- OUTSIDE RECORDS SUMMARY | ~2019-11-12 | XMS | Encounter Summary ---
Demographics + + + | Address | [address] | | | [place] [address] | + + + | Home Phone [...] Team Providers + +------+ + | Care President Financial Institution Name | Role | Phone | + +------+ + | Kirk French MD | PCP | | + +------+ + Encounter Details +--------+ + + + + | Date | Type | Department | Care Team | Description | +--------+ + + + + | 01/25/ | Hospital | [facility] | Daljit Singletary, | Stable angina | | 2019 | Encounter | MED CTR CV INTRA OP | MD [address] | pectoris (HCC) | | | | [address] | [address], | | | | | [place] | [place] [address] | | | | | [address] | [phone] | | | | | [phone] | | | +--------+ + + + [...] as a collagen plugis used on the amarillo triny site to close the site, you [...] by your healthcare provider Date Last Reviewed: 09/22/201619991360-8589 [employer]. [address] [place] [address]. All righ ts reserved. This information is [...] + + + +---------+ + + | Alvaton-3 Fatty | CAPS, one capsule by | [...] Dx); | | | | | [place] [address] | Presence of | | | | | [phone] | permanent cardiac | | | | | | pacemaker; | | | | | | Sinoatrial node | | | | | | dysfunction ([facility]) | | | | | | with symptomatic | | | | | | bradycardia | +--------+ + + + + | 01/01/ | Office | Cardiology | [place], | | | 2019 | Visit | | [address] | | | | | | [place], | | | | | | [place] [address] | | | | | | [phone] | | | | | | | [...] (1960) MEDICAL RECORD NUMBER: | | | [id number] OF PROCEDURE: 01/25/2019 PAINTER: Daljit | | | MD Gemini PROCEDURES [...] | | right radial artery (a normal Kevni's test was performed prior to the | [...] Sanchez, (1960) | | OF PROCEDURE: 01/25/2019PRIMARY SAUSAGE COOKER: Daljit Singletary MD PROCEDURES | | PERFORMED:Coronary [...] | Aggressive medical management. | | at 9:33[facility] PROVIDER:Kirk French MDFor additional detail as [...]
--- OUTSIDE RECORDS SUMMARY | ~2019-11-12 | XMS | Encounter Summary ---
Demographics + + + | Address | [address] | | | [place] [address] | + + + | Home Phone [...] Providers + +------+ + | Care Storage Management Consultant Name | Role | Phone | + +------+ + | Michael Amanda DO | PCP | | + +------+ + Reason for Visit +--------+ + | Reason | Comments | +--------+ + | Other | RECORDS DISCLOSURE | +--------+ + Encounter Details +--------+ + + + + | Date | Type | Department | Care Team | Description | +--------+ + + + + | 01/04/ | Telephone | [facility] [place] | [place], | Other ( RECORDS | | 2012 | | CARDIOLOGY [address] | [address] | DISCLOSURE) | | | | [place], | [place], | | | | | [place] [address] | [place] [address] | | | | | [phone] | [phone] | | | | | | | [...] | 2018 | Monitor | | [address] | Interrogation | | | | | [place], | (Primary Dx); | | | | | [place] [address] | Presence of | | | | | [phone] | permanent cardiac | | | | [...] W | | | | | | [place], | | | | | | [place] [address] | | | | | | [phone] | | | | | | | | +--------+ + + + + documented as of this encounter Visit Diagnoses Not on filedocumented in this encounter"
--- OUTSIDE RECORDS SUMMARY | ~2019-11-12 | XMS | Encounter Summary ---
Demographics + + + | Address | [address] | | | [place] [address] | + + + | Home Phone [...] Team Providers + +------+ + | Care Microstrategy Bi Developer Name | Role | Phone | + +------+ + | Kirk French MD | PCP | | + +------+ + Encounter Details +--------+ + + + + | Date | Type | Department | Care Team | Description | +--------+ + + + + | 10/25/ | Hospital | [facility] | Kirk French | Aneurysm (HCC) | | 2017 | Encounter | MED CTR ULTRASOUND | D, MD [address] | | | | | [address] [place] | [address] | | | | | [place], [place] | [place] [address] | | | | | [address] | [phone] | | | | | [phone] | | | | | | | [...] + + + +---------+ + + | Nelson-3 Fatty | CAPS, one capsule by | [...] | Monitor | | MD [address] | Interrogation | | | | | [place], | (Primary Dx); | | | | | [place] [address] | Presence of | | | | | [phone] | permanent cardiac | | | | [...] W | | | | | | [place], | | | | | | [place] [address] | | | | | | [phone] | | | | | | | | +--------+ + + + + documented as of this encounter Visit Diagnoses + + | Diagnosis | + + | Aneurysm (HCC) Aneurysm of unspecified site | + + documented in this encounter"
--- OUTSIDE RECORDS SUMMARY | ~2019-11-12 | XMS | Encounter Summary ---
Demographics + + + | Address | [address] | | | [place] [address] | + + + | Home Phone [...] Team Providers + +------+ + | Care Binman Name | Role | Phone | + [...] + + | 08/19/ | Telephone | [facility] | Silvia, | Other (patient | | 2016 | | CARDIOLOGY [address] | [address] [place] [address] | having issues with | | | | [place], | [place], | high blood pressure) | | | | [place] [address] | [place] [address] | | | | | [phone] | [phone] | | | | | | | [...] 2019 | Monitor | | MD [address] | Interrogation | | | | | [facility], | (Primary Dx); | | | | | [place] [address] | Presence of | | | | | [phone] | permanent cardiac | | | | [...] | | | | | | [place] [address] | | | | | | [phone] | | | | | | | | +--------+ + + + + documented as of this encounter Visit Diagnoses Not on filedocumented in this encounter"
--- OUTSIDE RECORDS SUMMARY | ~2019-11-12 | XMS | Encounter Summary ---
Demographics + + + | Address | [address] [place] [address] | | | [place] [address] | + + + | Home Phone | | + + + | Preferred Language | Unknown | + + + | Marital Status | | + + + | Gnosticism Affiliation | Unknown | + + + | Race | White | + + + | Ethnic Group | Not or | + + + Author + + + | Author | [facility] | + + + | Organization | [facility] | + + + | Address | Unknown | + + + | Phone | Unavailable | + + + Support + + + + + | Name | Relationship | Address | Phone | + + + + + | Rachel Valencia | [address] | [place] | | | | | [address] | | + + + + + Care Team Providers + +------+ + | Care Feeder Switchboard Operator Name | Role | Phone | + +------+ + | Darion Holden DO | PCP | | + +------+ + Reason for Visit + + + | Reason | Comments | + + + | Diarrhea | ongoing diarrhea; sent to ED | + + + Encounter Details +--------+ + + + + | Date | Type | Department | Care Team | Description | +--------+ + + + + | 10/04/ | Telephone | [facility] | Bridgette Rios, | Diarrhea (ongoing | | 2019 | | [facility] [address] | MD [address] | diarrhea; sent to | | | | [address] [place] | [facility] [place] | ED) | | | | Mailcode: Center | [address] | | | | | for Health and | [phone] | | | | | [facility] | | | | | | [place], [place] | | | | | | [address] | | | | | | [phone] | | | +--------+ + + + [...]
--- OUTSIDE RECORDS SUMMARY | ~2019-11-12 | XMS | Encounter Summary ---
Demographics + + + | Address | [address] | | | [place] [address] | + + + | Home Phone [...] Team Providers + +------+ + | Care Pencil Sorter Name | Role | Phone | + +------+ + | Darion Holden DO | PCP | | + +------+ + Encounter Details +--------+ + + + + | Date | Type | Department | Care Team | Description | +--------+ + + + + | 08/05/ | Hospital | [facility] | Emmanuel Daniel MD | | | 2009 | Encounter | MED CTR XRAY [address] | [address] | | | | | [place] | [address] [place], [place] | | | | | [place] [address] | [address] | | | | | [phone] | | | +--------+ + + + [...] Dx); | | | | | [place] [address] | Presence of | | | | | [phone] | permanent cardiac | | | | [...] W | | | | | | [place], | | | | | | [place] [address] | | | | | | [phone] | | | | | | | | +--------+ + + + + documented as of this encounter Visit Diagnoses Not on filedocumented in this encounter"
--- OUTSIDE RECORDS SUMMARY | ~2019-11-12 | XMS | Encounter Summary ---
Demographics + + + | Address | [address] | | | [place] [address] | + + + | Home Phone [...] Team Providers + +------+ + | Care Grinding Mill Operator Name | Role | Phone | + +------+ + PCP | Unavailable | + +------+ + Encounter Details +--------+ + + + + | Date | Type | Department | Care Team | Description | +--------+ + + + + | 02/07/ | [facility] | [facility] | Unknown, | | | 1995 | Encounter | MED CTR XRAY [address] | MD Stefany | | | | | [place] | | | | | | [place] [address] | (Fax) | | | | | [phone] | | | +--------+ + + + [...] Daljit iSngletary, | Remote Device | | 2019 | Monitor | | MD [address] | Interrogation | | | | | [place], | (Primary Dx); | | | | | [place] [address] | Presence of | | | | | [phone] | permanent cardiac | | | | [...] [place], | | | | | | [place] [address] | | | | | | [phone] | | | | | | | | +--------+ + + + + documented as of this encounter Visit Diagnoses Not on filedocumented in this encounter"
--- OUTSIDE RECORDS SUMMARY | ~2019-11-12 | XMS | Encounter Summary ---
Demographics + + + | Address | [address] | | | [place] [address] | + + + | Home Phone [...] Providers + +------+ + | Care Oil Pipe Inspector Name | Role | Phone | [...] + | 08/23/ | Telephone | [facility] | AnshujohnsoncherelleDaljit, | Other (edema is | | 2015 | | CARDIOLOGY [address] | MD [address] [place] | blood clots) | | | | [place], | [place], | | | | | [place] [address] | [place] [address] | | | | | [phone] | [phone] | | | | | | | [...] Dx); | | | | | [place] [address] | Presence of | | | | | [phone] | permanent cardiac | | | | [...] | | | | | | [place] [address] | | | | | | [phone] | | | | | | | | +--------+ + + + + documented as of this encounter Visit Diagnoses Not on filedocumented in this encounter"
--- OUTSIDE RECORDS SUMMARY | ~2019-11-12 | XMS | Encounter Summary ---
Demographics + + + | Address | [address] | | | [place] [address] | + + + | Home Phone [...] Providers + +------+ + | Care Chief Drafter Name | Role | Phone | [...] [place] | | | | | | [address] | | | | | | [phone] | | | +--------+ + + + [...] | 2018 | Monitor | | [address] [place] | Interrogation | | | | | [place], | (Primary Dx); | | | | | [place] [address] | Presence of | | | | | [phone] | permanent cardiac | | | | [...] W | | | | | | [place], | | | | | | [place] [address] | | | | | | [phone] | | | | | | | | +--------+ + + + + documented as of this encounter Visit Diagnoses Not on filedocumented in this encounter"
--- OUTSIDE RECORDS SUMMARY | ~2019-11-12 | XMS | Encounter Summary ---
Demographics + + + | Address | [address] | | | [place] [address] | + + + | Home Phone [...] Team Providers + +------+ + | Care Improvement Advisor Name | Role | Phone | + [...] | on | GASTROENTEROLOGY | [address] [place] | | | | | [address] [place] | [address] [place], [place] | | | | | [address] [place], [place] | [address] | | | | | [address] | | | | | | [phone] | | | +--------+ + + + [...] Dx); | | | | | [place] [address] | Presence of | | | | | [phone] | permanent cardiac | | | | [...] | | | | | | [place] [address] | | | | | | [phone] | | | | | | | | +--------+ + + + + documented as of this encounter Visit Diagnoses Not on filedocumented in this encounter"
--- OUTSIDE RECORDS SUMMARY | ~2019-11-12 | XMS | Encounter Summary ---
Demographics + + + | Address | [address] | | | [place] [address] | + + + | Home Phone [...] Team Providers + +------+ + | Care Loan Review Analyst Name | Role | Phone | [...] 2019 | | GASTROENTEROLOGY | [address], [place] | Syndrome | | | | [address] [place] | [address] [place], [place] | | | | | [address] [place], [place] | [address] | | | | | [address] | | | | | | [phone] | | | +--------+ + + + [...] | [address] [facility] | Interrogation | | | | | [place], | (Primary Dx); | | | | | [place] [address] | Presence of | | | | | [phone] | permanent cardiac | | | | [...] | | | | | | [place] [address] | | | | | | [phone] | | | | | | | | +--------+ + + + + documented as of this encounter Visit Diagnoses Not on filedocumented in this encounter"
--- OUTSIDE RECORDS SUMMARY | ~2019-11-12 | XMS | Encounter Summary ---
Demographics + + + | Address | [address] | | | [place] [address] | + + + | Home Phone [...] Team Providers + +------+ + | Care Entrepreneurial Finance Professor Name | Role | Phone | + +------+ + | Kirk French MD | PCP | | + +------+ + Encounter Details +--------+ + + + + | Date | Type | Department | Care Team | Description | +--------+ + + + + | 12/24/ | Orders Only | [facility] | Conversion | | | 2018 | | [facility] | Transaction, | | | | | PRIMARY CARE [address] | Provider Unknown | | | | | [address] | [phone] | | | | | [place] | | | | | | [address] | | | | | | [phone] | | | +--------+ + + + [...] Interrogation | | | | | [place], | (Primary Dx); | | | | | [place] [address] | Presence of | | | | | [phone] | permanent cardiac | | | | [...] | | | | | | [place], | | | | | | [place] [address] | | | | | | [phone] | | | | | | | [...] LAB | | [facility] | | + + + + [...]
--- OUTSIDE RECORDS SUMMARY | ~2019-11-12 | XMS | Encounter Summary ---
Demographics + + + | Address | [address] | | | [place] [address] | + + + | Home Phone [...] Team Providers + +------+ + | Care Plastics Bench Mechanic Name | Role | Phone | [...] 2019 | | GASTROENTEROLOGY | [address] | | | | | [address] | [place] [address] [place] | | | | | [address] [place] | [place] [address] | | | | | [address] | | | | | | [phone] | | | +--------+ + + + [...] | 11/20/ | Implant | Cardiology | [place]sh[place], | Remote Device | | 2018 | Monitor | | [address] [facility] | Interrogation | | | | | [facility], | (Primary Dx); | | | | | [place] [address] | Presence of | | | | | [phone] | permanent cardiac | | | | [...] | | | | | | [place] [address] | | | | | | [phone] | | | | | | | | +--------+ + + + + documented as of this encounter Visit Diagnoses Not on filedocumented in this encounter"
--- OUTSIDE RECORDS SUMMARY | ~2019-11-12 | XMS | Encounter Summary ---
Demographics + + + | Address | [address] | | | [place] [address] | + + + | Home Phone [...] Team Providers + +------+ + | Care Marine Habitat Resource Specialist Name | Role | Phone | + +------+ + | Kirk French MD | PCP | | + +------+ + Encounter Details +--------+ + + + + | Date | Type | Department | Care Team | Description | +--------+ + + + + | 01/07/ | Hospital | [facility] | Conversion | | | 2017 | Encounter | [facility] | Transaction, | | | | | ULTRASOUND [address] | Provider Unknown | | | | | [address] [facility] [address] | [phone] | | | | | [place] | | | | | | [address] | Kirk French | | | | | [phone] | MD [address] | | | | | | [address] [place], | | | | | | [place] [address] | | | | | | [phone] | | | | | | | [...] + + + +---------+ + + | [place]-3 Fatty | CAPS, one capsule by | [...] Dx); | | | | | [place] [address] | Presence of | | | | | [phone] | permanent cardiac | | | | [...] | | | | | | [place] [address] | | | | | | [phone] | | | | | | | | +--------+ + + + + documented as of this encounter Visit Diagnoses Not on filedocumented in this encounter"
--- OUTSIDE RECORDS SUMMARY | ~2019-11-12 | XMS | Encounter Summary ---
Demographics + + + | Address | [address] | | | [place] [address] | + + + | Home Phone [...] Team Providers + +------+ + | Care Economic Manager Name | Role | Phone | + +------+ + | Michael Amanda DO | PCP | | + +------+ + Encounter Details +--------+ + + + + | Date | Type | Department | Care Team | Description | +--------+ + + + + | 02/27/ | Hospital | [facility] | Shelly Carter DO | Chest pain; | | 2013 - | Encounter | [facility] | [address] | Pacemaker; | | | | CLINICAL DECISION | [place] [address] | Mild dehydration | | 02/28/ | | [address] [facility] | [phone] | | | 2013 | | [place], [place] | | | | | | [address] | | | | | | [phone] | | | +--------+ + + + [...] 2252 Date of Service: 02/28/141044 Status: Addendum Automated Manufacturing Instructor: Dev Montano MD (Physician) Related Notes: Original Note by Dev Montano MD (Physician) filed at 02/28/14 1107 Patient ID: Pina Gay [id number] y.o. 1960 Admit date: 02/27/2014 Discharge [...] - 99 mg/dL Final Testing performed at [address] [address] BUN Date Value Range Status 02/28/2014 15 8 - 25 mg/dL Final Testing performed at [address] [address] CREATININE Date Value Range Status 02/28/2014 0.74 0.70 - 1.30 mg/dL Final Testing performed at [address] [address] BUN/CREAT Date Value Range Status 02/28/2014 20 Final Testing performed at [address] [address] TOTAL PROTEIN Date Value Range Status 02/28/2014 6.1* 6.3 - 8.2 g/dL Final Testing performed at [address] [address] GLOBULIN Date Value Range Status 02/28/2014 2.1 1.3 - 4.9 g/dL Final Testing performed at [address] [address] TBIL Date Value Range Status 02/28/2014 1.4 0.1 - 1.5 mg/dL Final Testing performed at [address] [address] ALT Date Value Range Status 02/28/2014 27 10 - 65 U/L Final Testing performed at [address] [address] AST Date Value Range Status 02/28/2014 31 10 - 45 U/L Final Testing performed at [address] [address] SODIUM Date Value Range Status 02/28/2014 138 135 - 143 mmol/L Final Testing performed at [facility], [address] [place] [address] POTASSIUM Date Value Range Status 02/28/2014 3.4* 3.5 - 4.9 mmol/L Final Testing performed at [facility], [address] [place] [address] CHLORIDE Date Value Range Status 02/28/2014 108 99 - 109 mmol/L Final Testing performed at [address] [address] CO2 Date Value Range Status 02/28/2014 21* 23 - 32 mmol/L Final Testing performed at [facility], [address] [place] [address] ANION GAP AGAP Date Value Range Status 02/28/2014 12 5 - 20 mmol/L Final Testing performed at [facility], [address] [place] [address] Xr Chest Pa And Lateral 02/27/2014 PINA [...] 3-D reconstructi ons were performed using the [employer] 3-D software and sent to PACS. Oral Contrast: None I V contrast: 100 mL IsoVue 370 COMPARISON: None. FINDINGS: CHEST: The director of occupational therapy view shows a p acemaker via left [...] pacemaker, [facility] complaining of chest pain which started [...] catheterization recently done by Dr. Singletary in [place] in December 2013 at [facility] which showed minimal occlusive disease. One artery was 25% and another was 15%, per patient. I requested official cardiac catheterization report from [place] and still waiting for it to come. 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 You may get these medications from any pharmacy. amLODIPine 5 MG tablet pantoprazole 40 MG tablet Activity: activity as tolerated Diet: cardiac diet Wound Care: not applicable There are no Patient Instructions on file for this visit. Per Pt None Chaka Ortiz MD [address] [facility] [id number] In 1 week Ariel Pulido MD [address] [facility] [phone] In 1 week Daljit Singletary MD [address] [address] [facility] [address] In 1 week Signed: DEV MONTANO 02/28/2014 10:45 AM Addendum:ADDENDUM I just received a cardiac catheterization report from [facility], [place], which was done on December 25, 2013. [...] + + + +---------+ + + | Lacrosse-3 Fatty | CAPS, one capsule by | [...] 02/28/141211 Date of Service: 02/28/141210 Status: Signed Automated Manufacturing Instructor: Bijal Sosa RN (Registered Nurse) Discharge instructions [...] 02/28/1411 Date of Service: 02/28/1411 Status: Signed Automated Manufacturing Instructor: Mary Wetzel RPH (Pharmacist) Clinical Pharmacy Note: [...] ommittee. Mary Wetzel PharmD 02/28/2014 12:11 AM docume nted in this encounter Plan of [...] Dx); | | | | | [place] [address] | Presence of | | | | | [phone] | permanent cardiac | | | | [...] | | | | | | [place] [address] | | | | | | [phone] | | | | | | | [...] EXTERNAL | | | | performed at [facility];[address] | | LAB | | | | [address];[place], [place] | | | | | | [address] | | | | + + + [...] | | | | | | ACUTE [place] Testing | | | | | | performed at [facility];[address] | | | | | | [facility];[place], [place] | | | | | | [address] | | | | + + + [...] | | LAB | | | | [address], | | | | | | [place] [address] | | | | + + + + + + | RED CELL | 4.68Comment: Testing | 4.20 - 5.70 | EXTERNAL | | | COUNT | performed at [facility], [address] | M/uL | LAB | | | | [address], | | | | | | [place] [address] | | | | + + + + + + | Hgb | 15.3Comment: Testing | 13.2 - 17.0 | EXTERNAL | | | | performed at [facility], [address] | g/dL | LAB | | | | [address], | | | | | | [place] [address] | | | | + + + + + + | Hematocrit, | 44.2Comment: Testing | 39.0 - 50.0 % | EXTERNAL | | | POC | performed at [facility], [address] | | LAB | | | | [address], | | | | | | [place] [address] | | | | + + + + + + | MCV | 94.5Comment: Testing | 80.0 - 100.0 fl | EXTERNAL | | | | performed at [facility], [address] | | LAB | | | | [address], | | | | | | [place] [address] | | | | + + + + + + | MCH | 32.6Comment: Testing | 27.0 - 34.0 pg | EXTERNAL | | | | performed at [facility], [address] | | LAB | | | | [address], | | | | | | [place] [address] | | | | + + + + + + | MCHC | 34.5Comment: Testing | 32.0 - 35.5 | EXTERNAL | | | | performed at [facility], [address] | g/dL | LAB | | | | [address], | | | | | | [place] [address] | | | | + + + + + + | RDW-CV | 45.5Comment: Testing | 37 - 53 fl | EXTERNAL | | | | performed at [facility], [address] | | LAB | | | | [address], | | | | | | [place] [address] | | | | + + + + + + | Platelet | 156Comment: Testing | 150 - 400 K/uL | EXTERNAL | | | Count | performed at [facility], [address] | | LAB | | | Plasma | [address], | | | | | | [place] [address] | | | | + + + + + + | MPV | 8.8Comment: Testing | fl | EXTERNAL | | | | performed at [facility], [address] | | LAB | | | | [address], | | | | | | [place] [address] | | | | + + + + + + | Differentia | AUTOMATEDComment: | | EXTERNAL | | | l Type | Testing performed at | | LAB | | | | [facility], [address] | | | | | | [place] | | | | | | [address] | | | | + + + + + + | % Segmented | 57.7Comment: Testing | % | EXTERNAL | | | | performed at [facility], [address] | | LAB | | | Neutrophils | [address], | | | | | | [place] [address] | | | | + + + + + + | % | 31.8Comment: Testing | % | EXTERNAL | | | Lymphocytes | performed at [facility], [address] | | LAB | | | | [address], | | | | | | [place] [address] | | | | + + + + + + | % Monocytes | 9.2Comment: Testing | % | EXTERNAL | | | | performed at [facility], [address] | | LAB | | | | [address], | | | | | | [place] [address] | | | | + + + + + + | % | 0.9Comment: Testing | % | EXTERNAL | | | Eosinophils | performed at [facility], [address] | | LAB | | | | [address], | | | | | | [place] [address] | | | | + + + + + + | % Basophils | 0.4Comment: Testing | % | EXTERNAL | | | | performed at [facility], [address] | | LAB | | | | [address], | | | | | | [place] [address] | | | | + + + + + + | Absolute | 3.9Comment: Testing | 1.9 - 7.4 K/uL | EXTERNAL | | | Segmented | performed at [facility], [address] | | LAB | | | Neutrophils | [address], | | | | | | [place] [address] | | | | + + + + + + | Absolute | 2.1Comment: Testing | 1.0 - 3.9 K/uL | EXTERNAL | | | Lymphocytes | performed at [facility], [address] | | LAB | | | | [address], | | | | | | [place] [address] | | | | + + + + + + | Absolute | 0.6Comment: Testing | 0 - 0.8 K/uL | EXTERNAL | | | Monocytes | performed at [facility], [address] | | LAB | | | | [address], | | | | | | [place] [address] | | | | + + + + + + | Absolute | 0.1Comment: Testing | 0 - 0.5 K/uL | EXTERNAL | | | Eosinophils | performed at [facility], [address] | | LAB | | | | [address], | | | | | | [place] [address] | | | | + + + + + + | Absolute | 0.0Comment: Testing | 0 - 0.1 K/uL | EXTERNAL | | | Basophils | performed at [facility], [address] | | LAB | | | | [address], | | | | | | [place] [address] | | | | + + + [...] EXTERNAL | | | | performed at [facility], [address] | | LAB | | | | [address], | | | | | | [place] [address] | | | | + + + [...] | | | | | [place] [address] | | | | + + + [...] EXTERNAL | | | | performed at [facility];[address] | | LAB | | | | [address];[place] | | | | | | [address] | | | | + + + [...] | | | | | [place] [address] | | | | + + + + + + | Triglycerid | 37Comment: Testing | mg/dL | EXTERNAL | | | es | performed at [facility], [address] | | LAB | | | | [address], | | | | | | [place] [address] | | | | + + + + + + | HDL | 35 (L)Comment: Testing | mg/dL | EXTERNAL | | | | performed at [facility], [address] | | LAB | | | | [address], | | | | | | [place] [address] | | | | + + + + + + | LDL | 67Comment: Testing | mg/dL | EXTERNAL | | | Cholesterol | performed at [facility], [address] | | LAB | | | , | [address], | | | | | Calculated, | [place] [address] | | | | | External | [...] mmol/L | LAB | | | | [address], | | | | | | [place] [address] | | | | + + + + + + | K | 3.4 (L)Comment: Testing | 3.5 - 4.9 | EXTERNAL | | | | performed at [facility], [address] | mmol/L | LAB | | | | [address], | | | | | | [place] [address] | | | | + + + + + + | Cl | 108Comment: Testing | 99 - 109 mmol/L | EXTERNAL | | | | performed at [facility], [address] | | LAB | | | [address], | | | | | | [place] [address] | | | | + + + + + + | CO2 | 21 (L)Comment: Testing | 23 - 32 mmol/L | EXTERNAL | | | | performed at [facility], [address] | | LAB | | | | [address], | | | | | | [place] [address] | | | | + + + + + + | Anion Gap | 12Comment: Testing | 5 - 20 mmol/L | EXTERNAL | | | | performed at [facility], [address] | | LAB | | | | [address], | | | | | | [place] [address] | | | | + + + + + + | Glucose, | 107 (H)Comment: Testing | 65 - 99 mg/dL | EXTERNAL | | | Fasting | performed at [facility], [address] | | LAB | | | | [address], | | | | | | [place] [address] | | | | + + + + + + | BUN | 15Comment: Testing | 8 - 25 mg/dL | EXTERNAL | | | | performed at [facility], [address] | | LAB | | | | [address], | | | | | | [place] [address] | | | | + + + + + + | Creatinine | 0.74Comment: Testing | 0.70 - 1.30 | EXTERNAL | | | | performed at [facility], [address] | mg/dL | LAB | | | | [address], | | | | | | [place] [address] | | | | + + + + + + | BUN/Creatin | 20Comment: Testing | | EXTERNAL | | | ine Ratio | performed at [facility], [address] | | LAB | | | | [address], | | | | | | [place] [address] | | | | + + + + + + | Calcium | 8.9Comment: Testing | 8.5 - 10.2 | EXTERNAL | | | | performed at [facility], [address] | mg/dL | LAB | | | | [address], | | | | | | [place] [address] | | | | + + + + + + | Protein, | 6.1 (L)Comment: Testing | 6.3 - 8.2 g/dL | EXTERNAL | | | Total | performed at [facility], [address] | | LAB | | | | [address], | | | | | | [place] [address] | | | | + + + + + + | Albumin | 4.0Comment: Testing | 3.6 - 5.0 g/dL | EXTERNAL | | | | performed at [facility], [address] | | LAB | | | | [address], | | | | | | [place] [address] | | | | + + + + + + | Globulin | 2.1Comment: Testing | 1.3 - 4.9 g/dL | EXTERNAL | | | | performed at [facility], [address] | | LAB | | | | [address], | | | | | | [place] [address] | | | | + + + + + + | A/G Ratio | 1.9Comment: Testing | 1.0 - 2.4 | EXTERNAL | | | | performed at [facility], [address] | | LAB | | | | [address], | | | | | | [place] [address] | | | | + + + + + + | Bilirubin | 1.4Comment: Testing | 0.1 - 1.5 mg/dL | EXTERNAL | | | Total | performed at [facility], [address] | | LAB | | | [address], | | | | | | [place] [address] | | | | + + + + + + | ALP, | 46Comment: Testing | 35 - 115 U/L | EXTERNAL | | | External | performed at [facility], [address] | | LAB | | | | [address], | | | | | | [place] [address] | | | | + + + + + + | AST | 31Comment: Testing | 10 - 45 U/L | EXTERNAL | | | | performed at [facility], [address] | | LAB | | | | [address], | | | | | | [place] [address] | | | | + + + + + + | ALT | 27Comment: Testing | 10 - 65 U/L | EXTERNAL | | | | performed at [facility], [address] | | LAB | | | | [address], | | | | | | [place] [address] | | | | + + + [...] | | | | | | at [facility], [address] | | | | [address], | | | | | | [place] [address] | | | | + + + [...] | | | | | | WILIAN ([id number]) on 02/28/2014 | | | | | | 2:24:36 PM | | | | + + + + + + + + | Specimen | + + | | + + + + + | Narrative | Performed At | + + + | Historically converted procedure from [facility] | EXTERNAL LAB | + + + [...] EXTERNAL | | | | performed at [facility];[address] | | LAB | | | [address];[place], [place] | | | | | | [address] | | | | + + + [...] | | | | | | ACUTE [place] Testing | | | | | | performed at [facility];[address] | | | | | | [facility];[place], [place] | | | | | | [address] | | | | + + + [...] EXTERNAL | | | | performed at [facility];[address] | | LAB | | | | [address];[place], [place] | | | | | | [address] | | | | + + + [...] At | + + + | PINA Hermosillo NATAZENAIDA CTA CHEST ABDOMEN W CONTRAST 02/27/2014 11:21 [...] were | | | performed using the [employer] 3-D software and sent to PACS. Oral | | | Contrast: None IV contrast: 100 mL IsoVue 370 COMPARISON: None. | | | FINDINGS: CHEST: The director of occupational therapy view shows a pacemaker via left | [...] reconstructions were performed | | using the [employer] software and sent to PACS. Oral Contrast: NoneIV contrast: 100 | | mL IsoVue 370 COMPARISON:None. FINDINGS: CHEST: The director of occupational therapy view shows a pacemaker via | | [...] Brown Conversion - 07/07/2019 10:30 PM PDT PINA GAYRENU CHEST 2 VIEW FRONTAL | | AND [...] EXTERNAL | | | | performed at [facility];[address] | | LAB | | | | [address];[place] | | | | | | [address] | | | | + + + + + -+ | RED CELL | 5.19Comment: Testing | 4.20 - 5.70 | EXTERNAL | | | COUNT | performed at [facility];[address] | M/uL | LAB | | | | [address];[place] | | | | | | [address] | | | | + + + + + -+ | Hgb | 16.8Comment: Testing | 13.2 - 17.0 | EXTERNAL | | | | performed at [facility];[address] | g/dL | LAB | | | | [address];[place] | | | | | | [address] | | | | + + + + + -+ | Hematocrit, | 49.5Comment: Testing | 39.0 - 50.0 % | EXTERNAL | | | POC | performed at [facility];[address] | | LAB | | | | [address];[place] | | | | | | [address] | | | | + + + + + -+ | MCV | 95.4Comment: Testing | 80.0 - 100.0 fl | EXTERNAL | | | | performed at [facility];[address] | | LAB | | | | [address];[place] | | | | | | [address] | | | | + + + + + -+ | MCH | 32.4Comment: Testing | 27.0 - 34.0 pg | EXTERNAL | | | | performed at [facility];[address] | | LAB | | | | [address];[place] | | | | | | [address] | | | | + + + + + -+ | MCHC | 34.0Comment: Testing | 32.0 - 35.5 | EXTERNAL | | | | performed at [facility];[address] | g/dL | LAB | | | | [address];[place] | | | | | | [address] | | | | + + + + + -+ | RDW-CV | 46.8Comment: Testing | 37 - 53 fl | EXTERNAL | | | | performed at [facility];[address] | | LAB | | | | [address];[place] | | | | | | [address] | | | | + + + + + -+ | Platelet | 179Comment: Testing | 150 - 400 K/uL | EXTERNAL | | | Count | performed at [facility];[address] | | LAB | | | Plasma | [address];[place] | | | | | | [address] | | | | + + + + + -+ | MPV | 8.6Comment: Testing | fl | EXTERNAL | | | | performed at [facility];[address] | | LAB | | | | [address];[place] | | | | | | [address] | | | | + + + + + -+ | Differentia | AUTOMATEDComment: | | EXTERNAL | | | l Type | Testing performed at | | LAB | | | | [facility];[address];[place] [address] | | | | + + + + + -+ | % Segmented | 62.4Comment: Testing | % | EXTERNAL | | | | performed at [facility];[address] | | LAB | | | Neutrophils | [address];[place] | | | | | | [address] | | | | + + + + + -+ | % | 26.3Comment: Testing | % | EXTERNAL | | | Lymphocytes | performed at [facility];[address] | | LAB | | | | [address];[place] | | | | | | [address] | | | | + + + + + -+ | % Monocytes | 10.3Comment: Testing | % | EXTERNAL | | | | performed at [facility];[address] | | LAB | | | | [address];[place] | | | | | | [address] | | | | + + + + + -+ | % | 0.5Comment: Testing | % | EXTERNAL | | | Eosinophils | performed at [facility];[address] | | LAB | | | | [address];[place] | | | | | | [address] | | | | + + + + + -+ | % Basophils | 0.5Comment: Testing | % | EXTERNAL | | | | performed at [facility];[address] | | LAB | | | | [address];[place] | | | | | | [address] | | | | + + + + + -+ | Absolute | 6.3Comment: Testing | 1.9 - 7.4 K/uL | EXTERNAL | | | Segmented | performed at [facility];[address] | | LAB | | | Neutrophils | [address];[place] | | | | | | [address] | | | | + + + + + -+ | Absolute | 2.7Comment: Testing | 1.0 - 3.9 K/uL | EXTERNAL | | | Lymphocytes | performed at [facility];[address] | | LAB | | | | [address];[place] | | | | | | [address] | | | | + + + + + -+ | Absolute | 1.0 (H)Comment: Testing | 0 - 0.8 K/uL | EXTERNAL | | | Monocytes | performed at [facility];[address] | | LAB | | | | [address];[place] | | | | | | [address] | | | | + + + + + -+ | Absolute | 0.0Comment: Testing | 0 - 0.5 K/uL | EXTERNAL | | | Eosinophils | performed at [facility];[address] | | LAB | | | | [address];[place] | | | | | | [address] | | | | + + + + + -+ | Absolute | 0.1Comment: Testing | 0 - 0.1 K/uL | EXTERNAL | | | Basophils | performed at [facility];[address] | | LAB | | | | [address];[place] | | | | | | [address] | | | | + + + + + -+ | Na | 139Comment: Testing | 135 - 143 | EXTERNAL | | | | performed at [facility];[address] | mmol/L | LAB | | | | [address];[place] | | | | | | [address] | | | | + + + + + -+ | K | 3.4 (L)Comment: Testing | 3.5 - 4.9 | EXTERNAL | | | | performed at [facility];[address] | mmol/L | LAB | | | | [address];[place] | | | | | | [address] | | | | + + + + + -+ | Cl | 108Comment: Testing | 99 - 109 mmol/L | EXTERNAL | | | | performed at [facility];[address] | | LAB | | | | [address];[place] | | | | | | [address] | | | | + + + + + -+ | CO2 | 21 (L)Comment: Testing | 23 - 32 mmol/L | EXTERNAL | | | | performed at [facility];[address] | | LAB | | | | [address];[place] | | | | | | [address] | | | | + + + + + -+ | Anion Gap | 14Comment: Testing | 5 - 20 mmol/L | EXTERNAL | | | | performed at [facility];[address] | | LAB | | | | [address];[place] | | | | | | [address] | | | | + + + + + -+ | Glucose, | 124 (H)Comment: Testing | 65 - 99 mg/dL | EXTERNAL | | | Fasting | performed at [facility];[address] | | LAB | | | | [address];[place] | | | | | | [address] | | | | + + + + + -+ | BUN | 20Comment: Testing | 8 - 25 mg/dL | EXTERNAL | | | | performed at [facility];[address] | | LAB | | | | [address];[place] | | | | | | [address] | | | | + + + + + -+ | Creatinine | 0.97Comment: Testing | 0.70 - 1.30 | EXTERNAL | | | | performed at [facility];[address] | mg/dL | LAB | | | | [address];[place] | | | | | | [address] | | | | + + + + + -+ | BUN/Creatin | 21Comment: Testing | | EXTERNAL | | | ine Ratio | performed at [facility];[address] | | LAB | | | | [address];[place] | | | | | | [address] | | | | + + + + + -+ | Calcium | 8.7Comment: Testing | 8.5 - 10.2 | EXTERNAL | | | | performed at [facility];[address] | mg/dL | LAB | | | | [address];[place] | | | | | | [address] | | | | + + + + + -+ | Protein, | 7.6Comment: Testing | 6.3 - 8.2 g/dL | EXTERNAL | | | Total | performed at [facility];[address] | | LAB | | | | [address];[place] | | | | | | [address] | | | | + + + + + -+ | Albumin | 4.2Comment: Testing | 3.6 - 5.0 g/dL | EXTERNAL | | | | performed at [facility];[address] | | LAB | | | | [address];[place] | | | | | | [address] | | | | + + + + + -+ | Globulin | 3.4Comment: Testing | 1.3 - 4.9 g/dL | EXTERNAL | | | | performed at [facility];[address] | | LAB | | | | [address];[place] | | | | | | [address] | | | | + + + + + -+ | A/G Ratio | 1.2Comment: Testing | 1.0 - 2.4 | EXTERNAL | | | | performed at [facility];[address] | | LAB | | | | [address];[place] | | | | | | [address] | | | | + + + + + -+ | Bilirubin | 1.1Comment: Testing | 0.1 - 1.5 mg/dL | EXTERNAL | | | Total | performed at [facility] [place];[address] | | LAB | | | | [address];[place] | | | | | | [address] | | | | + + + + + -+ | ALP, | 77Comment: Testing | 35 - 115 U/L | EXTERNAL | | | External | performed at [facility] [place];[address] | | LAB | | | | [address];[place] | | | | | | [address] | | | | + + + + + -+ | AST | 35Comment: Testing | 10 - 45 U/L | EXTERNAL | | | | performed at [facility] [place];[address] | | LAB | | | | [address];[place] | | | | | | [address] | | | | + + + + + -+ | ALT | 43Comment: Testing | 10 - 65 U/L | EXTERNAL | | | | performed at [facility] [place];[address] | | LAB | | | | [address];[place] | | | | | | [address] | | | | + + + [...] | | | | | | at [facility] [place];[address];[place] [address] | | | | + + + + + -+ | CK, Total | 510 (H)Comment: Testing | 55 - 400 U/L | EXTERNAL | | | | performed at [facility] [place];[address] | | LAB | | | | [address];[place] | | | | | | [address] | | | | + + + [...] | | | | | performed at [facility] [place];[address] | | | | | [address];[place] | | | | | | [address] | | | | + + + + + -+ | aPTT, | 24Comment: Testing | 23 - 32 seconds | EXTERNAL | | | Patient | performed at [facility] [place];[address] | | LAB | | | [address];[place] | | | | | | [address] | | | | + + + + + -+ | CK-MB | 9.3 (H)Comment: Testing | 0.5 - 3.6 ng/mL | EXTERNAL | | | | performed at [facility] [place];[address] | | LAB | | | | [address];[place] | | | | | | [address] | | | | + + + [...] EXTERNAL | | | | performed at [facility] [place];[address] | uIU/mL | LAB | | | | [address];[place], [place] | | | | | | [address] | | | | + + + [...] EXTERNAL | | | | performed at [facility] [place];[address] | | LAB | | | | [address] [facility];[place], [place] | | | | | | [address] | | | | + + + [...] (500), | | | | | | editor index TERESE NINA (2) | | | | | | on 02/27/2014 6:56:17 PM | | | | + + + + + + + + | Specimen | + + | | + + + + + | Narrative | Performed At | + + + | Historically converted procedure from [facility] | EXTERNAL LAB | + + + [...]
--- OUTSIDE RECORDS SUMMARY | ~2019-11-12 | XMS | Encounter Summary ---
Demographics + + + | Address | [address] [place] [address] | | | [place] [address] | + + + | Home Phone | | + + + | Preferred Language | Unknown | + + + | Marital Status | | + + + | Faith Affiliation | Unknown | + + + | Race | White | + + + | Ethnic Group | Not or | + + + Author + + + | Author | [facility] | + + + | Organization | [facility] | + + + | Address | Unknown | + + + | Phone | Unavailable | + + + Support + + + + + | Name | Relationship | Address | Phone | + + + + + | Rachel Valencia | ELIEZER | [place] | | | | | [address] | | + + + + + Care Team Providers + +------+ + | Care Child Psychiatrist Name | Role | Phone | + [...] | | 2019 | | Center at [facility] [address] | Gastroenterology | Gastroenterology | | | | ILA Tremayne Crane | | | | | | Mailcode: [place] | | | | | | [facility] and | | | | | | [place] [address] | | | | | | [place], [place] | | | | | | [address] | | | | | | [phone] | | | +--------+ + + + [...]
--- OUTSIDE RECORDS SUMMARY | ~2019-11-12 | XMS | Encounter Summary ---
Demographics + + + | Address | [address] | | | [place] [address] | + + + | Home Phone [...] Providers + +------+ + | Care Operations Plant Attendant Name | Role | Phone | + +------+ + PCP | Unavailable | + +------+ + Encounter Details +--------+ + + + + | Date | Type | Department | Care Team | Description | +--------+ + + + + | 06/25/ | [facility] | [facility] | Daljit Singletary, | | | 2008 | Encounter | MED CTR XRAY [address] | [address] | | | | | [place] | [place], | | | | | [place] [address] | [place] [id number] | | | | | [phone] | [phone] | | | | | | | [...] Dx); | | | | | [place] [address] | Presence of | | | | | [phone] | permanent cardiac | | | | [...] [place], | | | | | | [place] [address] | | | | | | [phone] | | | | | | | | +--------+ + + + + documented as of this encounter Visit Diagnoses Not on filedocumented in this encounter"
--- OUTSIDE RECORDS SUMMARY | ~2019-11-12 | XMS | Encounter Summary ---
Demographics + + + | Address | [address] | | | [place] [address] | + + + | Home Phone [...] Team Providers + +------+ + | Care Lubricating Specialist Name | Role | Phone | + +------+ + | Kirk French MD | PCP | | + +------+ + Encounter Details +--------+ + + + + | Date | Type | Department | Care Team | Description | +--------+ + + + + | 07/05/ | Hospital | [facility] | Conversion | Acute neck pain | | 2017 | Encounter | [facility] XRAY | Transaction, | | | | | [address] | Provider Unknown | | | | | [address] [place], [place] | [phone] | | | | | [address] | | | | | | [phone] | Apolonia Ruano | | | | | | MD Shelly [address] | | | | | | [place] | | | | | | [place], [place] | | | | | | [address] | | | | | | [phone] | | +--------+ + + + + [...] + + + +---------+ + + | [place]-3 Fatty | CAPS, one capsule by | [...] Dx); | | | | | [place] [address] | Presence of | | | | | [phone] | permanent cardiac | | | | [...] W | | | | | | [place], | | | | | | [place] [address] | | | | | | [phone] | | | | | | | [...]
--- OUTSIDE RECORDS SUMMARY | ~2019-11-12 | XMS | Encounter Summary ---
Demographics + + + | Address | [address] | | | [place] [address] | + + + | Home Phone [...] Team Providers + +------+ + | Care Certified Coatings Inspector Name | Role | Phone | [...] 2019 | | GASTROENTEROLOGY | [address], [place] | | | | | [address] [place] | [address] [place], [place] | | | | | [address] [place], [place] | [address] | | | | | [address] | | | | | | [phone] | | | +--------+ + + + [...] | Interrogation | | | | | [facility] | (Primary Dx); | | | | | [place] [address] | Presence of | | | | | [phone] | permanent cardiac | | | | [...] | | | | | | [place] [address] | | | | | | [phone] | | | | | | | | +--------+ + + + + documented as of this encounter Visit Diagnoses Not on filedocumented in this encounter"
--- OUTSIDE RECORDS SUMMARY | ~2019-11-12 | XMS | Encounter Summary ---
Demographics + + + | Address | [address] | | | [place] [address] | + + + | Home Phone [...] Team Providers + +------+ + | Care Radiosonde Operator Name | Role | Phone | + +------+ + | Michael Amanda DO | PCP | | + +------+ + Encounter Details +--------+ + + + + | Date | Type | Department | Care Team | Description | +--------+ + + + + | 10/01/ | Hospital | [facility] | Mary Bradshaw | | | 2013 | Encounter | MED CTR JORDEN DAIGLE | Guy Larkin MD | | | | | [address] [place] | [address] | | | | | [place], [place] | [place], [place] | | | | | [address] | [address] | | | | | [phone] | | | +--------+ + + + [...] + + + +---------+ + + | [place]-3 Fatty | CAPS, one capsule by | [...] +---------+ + + | LORazepam (ATIVAN) | 1/ to 1 tab up to | 20 [...] + + + +---------+ + + | tolterodine | Take 1-2 capsules by | 60 | 2 | 07/25/20 | | | (DETROL LA) 2 mg 24 | mouth Daily. Start | capsule | | 14 | 5 | | hr | with one 2 mg | | | | | | capsuleIndications: | capsule and increase | | | | | | Urinary frequency, | to 4 mg if needed. | | | | | | Incontinence | | | | | | + [...] Dx); | | | | | [place] [address] | Presence of | | | | | [phone] | permanent cardiac | | | | [...] W | | | | | | [place], | | | | | | [place] [address] | | | | | | [phone] | | | | | | | [...] Procedure Note | + + | Kevin, Kalpesh Results In - 10/01/2014 5:08 PM PST [...] + | MISCELLANEOUS LAB | | | [phone] | + +---------+ + + | MISCELANIOUS LAB | | | [phone] | + +---------+ + + documented in this encounter Visit Diagnoses Not on filedocumented in this encounter"
--- OUTSIDE RECORDS SUMMARY | ~2019-11-12 | XMS | Encounter Summary ---
Demographics + + + | Address | [address] | | | [place] [address] | + + + | Home Phone [...] Team Providers + +------+ + | Care Word Processing Supervisor Name | Role | Phone | [...] | RN | | | | | [place], | | | | | | [place] [address] | | | | | | [phone] | | | +--------+ + + + [...] | 2019 | Monitor | | [address] | Interrogation | | | | | [place], | (Primary Dx); | | | | | [place] [address] | Presence of | | | | | [phone] | permanent cardiac | | | | [...] | | | | | | [place] [address] | | | | | | [phone] | | | | | | | | +--------+ + + + + documented as of this encounter Visit Diagnoses Not on filedocumented in this encounter"
--- OUTSIDE RECORDS SUMMARY | ~2019-11-12 | XMS | Encounter Summary ---
Demographics + + + | Address | [address] | | | [place] [address] | + + + | Home Phone [...] Providers + +------+ + | Care Charge Accounts Audit Clerk Name | Role | Phone [...] + + | 04/12/ | Telephone | [facility] | Daljit Singletary, | Other (issues with | | 2017 | | CARDIOLOGY [address] | MD [address] | low blood pressure | | | | [place], | [place], | and dizziness) | | | | [place] [address] | [place] [address] | | | | | [phone] | [phone] | | | | | | | [...] 2019 | Monitor | | MD [address] | Interrogation | | | | | [place], | (Primary Dx); | | | | | [place] [address] | Presence of | | | | | [phone] | permanent cardiac | | | | [...] W | | | | | | [place], | | | | | | [place] [address] | | | | | | [phone] | | | | | | | | +--------+ + + + + documented as of this encounter Visit Diagnoses Not on filedocumented in this encounter"
--- OUTSIDE RECORDS SUMMARY | ~2019-11-12 | XMS | Encounter Summary ---
Demographics + + + | Address | [address] | | | [place] [address] | + + + | Home Phone [...] Team Providers + +------+ + | Care Family Day Care Provider Name | Role | Phone | + [...] | | | | CENTER [address] | [address] | | | | | [place] | [place] | | | | | [address] | [address] | | | | | [phone] | | | +--------+ + + + [...] + + + +---------+ + + | [place]-3 Fatty | CAPS, one capsule by | [...] | | | | | | | platinum coronary | | | | | | | artery of platinum | | | | | | | [...] Dx); | | | | | [place] [address] | Presence of | | | | | [phone] | permanent cardiac | | | | | | pacemaker; | | | | | | Sinoatrial node | | | | | | dysfunction ([facility]) | | | | | | with symptomatic | | | | | | bradycardia | +--------+ + + + + | 01/01/ | Office | Cardiology | Silvia, | | | 2019 | Visit | | [place] [address] | | | | | | [address] [place], | | | | | | [place] [address] | | | | | | [phone] | | | | | | | [...] | | | | | | [employer] | | | | | [...] [address] | [place] | [phone] | | [facility] | | [address] | | | - LABORATORY | | [...] | Time | | seconds | [facility] | | | | [...] [address] | [place] | [phone] | | [facility] | | [address] | | | - LABORATORY | | [...] in | 12 - 53 U/L | [facility] | | | | use as of January 18, | | [facility] | | | | 2018. Check reference | | MEDICAL | | [...] + | [facility] | [address] | [place] | [phone] | | [facility] | | [address] | | | - LABORATORY | | [...] 15 | 9 - 23 mg/dL | [facility] [...] | [facility] | | | [place]OREAN | RATE,ESTIMATED | | MEDICAL | | | | mL/min/[id number] than | | CENTER - | | [...] | | | | | mg/dL | [facility] | | | | | | MEDICAL | | | | | | CENTER - | | | | | | LABORATORY | | + + + + + + | Albumin | 4.7 | 3.2 - 4.8 g/dL | [facility] | | | | | | MICHELLE [...] | ine Ratio | | | [facility] | | | | | | MEDICAL [...] [address] | [place] | [phone] | | [facility] | | [address] | | | - LABORATORY | | [...] | | | Granulocyte | | | MICHELLE | | | s | | [...] Lymphocytes | | K/uL | [facility] | | | [...] | | | | WBCs | [facility] | | | | [...] + | [facility] | [address] | [place] | [phone] | | [facility] | | [address] | | | - LABORATORY | | | | + + + + + B Type Natriuretic Peptide (06/02/2019 7:07 PM PDT) + +-------+ + + + | Component | Value | Ref Range | Performed | Pathologist | | | | | At | Signature | + +-------+ + + + | BNP | 48 | <100 pg/mL | [facility] | | | | | [...] + | [facility] | [address] | [place] | [phone] | | [facility] | | [address] | | | - LABORATORY | | [...] | | | | ANGELA MARADIAGA MD ([id number]) | | | | | | on [...] | | | 324 mg, Oral, ONCE, Wed06/02/19 | | 19 6:49 | | | [...] PDT | | | | | Starting Wed06/02/19 at 2031, | | | | | | | Patient Address: [address] [place] [address] | | | | | | | [place] [address], | | | | | | + + + +------+---+---+ +---+---+ | | | +---+---+ documented in this encounter
--- OUTSIDE RECORDS SUMMARY | ~2019-11-12 | XMS | Encounter Summary ---
Demographics + + + | Address | [address] | | | [place] [address] | + + + | Home Phone [...] Team Providers + +------+ + | Care R&D Engineer Name | Role | Phone | [...] | | | | [place] | [address] | | | | | [address] | | | | | | [phone] | | | +--------+ + + + [...] 2018 | Monitor | | MD [address] | Interrogation | | | | | [place], | (Primary Dx); | | | | | [place] [address] | Presence of | | | | | [phone] | permanent cardiac | | | | [...] W | | | | | | [place], | | | | | | [place] [address] | | | | | | [phone] | | | | | | | | +--------+ + + + + documented as of this encounter Visit Diagnoses Not on filedocumented in this encounter"
--- OUTSIDE RECORDS SUMMARY | ~2019-11-12 | XMS | Encounter Summary ---
Demographics + + + | Address | [address] | | | [place] [address] | + + + | Home Phone [...] Team Providers + +------+ + | Care Relocation Associate Name | Role | Phone | + +------+ + | Kirk French MD | PCP | | + +------+ + Encounter Details +--------+ + + + + | Date | Type | Department | Care Team | Description | +--------+ + + + + | 12/23/ | Emergency | [facility] | Cristal Alexander, | Chronic neck pain; | | 2015 | | MEDICAL CENTER | DO [address] | Headache(784.0) | | | | EMERGENCY CENTER | [place] [address] | | | | | [address] | [phone] | | | | | [place], [place] | | | | | | [address] | | | | | | [phone] | | | +--------+ + + + [...] + + + +---------+ + + | [place]-3 Fatty | CAPS, one capsule by | [...] | | | | | | | #[id number], exp 07/2016 | | | | | [...] Dx); | | | | | [place] [address] | Presence of | | | | | [phone] | permanent cardiac | | | | [...] W | | | | | | [place], | | | | | | [place] [address] | | | | | | [phone] | | | | | | | [...] Conversion - 07/07/2019 5:05 AM PDT PINA [id number] years MaleCT | | CERVICAL SPINE WO [...]
--- OUTSIDE RECORDS SUMMARY | ~2019-11-12 | XMS | Encounter Summary ---
Demographics + + + | Address | [address] | | | [place] [address] | + + + | Home Phone [...] Team Providers + +------+ + | Care Equipment Engineering Technician Name | Role | Phone | + +------+ + | Kirk French MD | PCP | | + +------+ + Encounter Details +--------+ + + + + | Date | Type | Department | Care Team | Description | +--------+ + + + + | 12/24/ | Anesthesia | [facility] | Jarett Barakat | | | 2018 | Event | MED CTR MP INTRA OP | P, MD [address] | | | | | [address] | [place], [place] | | | | | [place], [place] | [address] | | | | | [address] | [phone] | | | | | [phone] | | | | | | | Arthur Wesley, | | | | | | [address] | | | | | | [place], [place] | | | | | | [address] | | | | | | | | +--------+ + + + + Anesthesia Record + + + + + | Procedure Name | Responsible | Anesthesia Start | Anesthesia Stop Time | | | Anesthesiologist | Time | | + + + + + | EGD (N/A Dom) | Jarett Barakat, | 12/24/17 [...] 12/24/17 1435 by | | eral | [id number] catheter system; | Desmond Teresa RN | [...] Dx); | | | | | [place] [address] | Presence of | | | | | [phone] | permanent cardiac | | | | [...] | | | | | | [place] [address] | | | | | | [phone] | | | | | | | [...] | | | | | Anxiety, Starting 12/24/17 at | | PM PST | | | | | 1325, Anesthesia Intra-op | | | | | | + +-------+ +------+---+---+ +---+---+ | | | +---+---+ + +-------+ +-------+---+---+ | propofol (DIPRIVAN) injection | Given | 12/24/19 | 50 mg | | | | Intravenous, PRN, Starting Wed | | 18 1:26 | | | [...] mcg/kg/m | mL/hr | | | Starting 12/24/17 at 1326, | | PM PST | in | | | | Anesthesia Intra-op | | | | | | + +---------+ + +-------+---+ +---+---+ | | | +---+---+ documented in this encounter"
--- OUTSIDE RECORDS SUMMARY | ~2019-11-12 | XMS | Encounter Summary ---
Demographics + + + | Address | [address] | | | [place] [address] | + + + | Home Phone [...] Team Providers + +------+ + | Care Offal Separator Name | Role | Phone | [...] | RN | | | | | [place], | | | | | | [place] [address] | | | | | | [phone] | | | +--------+ + + + [...] Dx); | | | | | [place] [address] | Presence of | | | | | [phone] | permanent cardiac | | | | [...] W | | | | | | [place], | | | | | | [place] [address] | | | | | | [phone] | | | | | | | | +--------+ + + + + documented as of this encounter Visit Diagnoses Not on filedocumented in this encounter"
--- OUTSIDE RECORDS SUMMARY | ~2019-11-12 | XMS | Encounter Summary ---
Demographics + + + | Address | [address] | | | [place] [address] | + + + | Home Phone [...] Team Providers + +------+ + | Care Wet End Helper Name | Role | Phone | [...] + | 11/02/ | Telephone | [facility] | Daljit Singletary, | Other | | 2015 | | CARDIOLOGY [address] | MD [address] | | | | | [place], | [place], | | | | | [place] [address] | [place] [address] | | | | | [phone] | [phone] | | | | | | | [...] 2019 | Monitor | | MD [address] | Interrogation | | | | | [place], | (Primary Dx); | | | | | [place] [address] | Presence of | | | | | [phone] | permanent cardiac | | | | [...] W | | | | | | [place], | | | | | | [place] [address] | | | | | | [phone] | | | | | | | | +--------+ + + + + documented as of this encounter Visit Diagnoses Not on filedocumented in this encounter"
--- OUTSIDE RECORDS SUMMARY | ~2019-11-12 | XMS | Encounter Summary ---
Demographics + + + | Address | [address] | | | [place] [address] | + + + | Home Phone [...] Providers + +------+ + | Care Medical Office Administrator Name | Role | Phone | [...] + + | 02/21/ | Office | [facility] | Silvia, | Coronary artery | | 2019 | Visit | CARDIOLOGY [address] | [place] [address] | disease involving | | | | [place], | [place], | [place] coronary | | | | [place] [address] | [place] [address] | artery of [place] | | | | [phone] | [phone] | heart without angina | | | [...] of non-critical coronary artery d isease involving [place] coronary artery of [place] heart without angina pectoris, essential h ypertension, [...] stay active. He enjoys hunting in his [place]. He has not had any [...] Preventative health care Coronary artery disease involving [place] coronary artery of [place] heart without angina pectoris Cannabis abuse, daily [...] 3RD DOSE, CALL 911 100 tablet 3 [place]-3 Fatty Acids (SALMON OIL-1000 PO) CAPS, one capsule by mouth daily twice daily ondansetron (ZOFRAN ODT) 4 mg disintegrating tablet Take 4 mg by mouth. ONE TOUCH DELICA LANCETS [facility] Check glucose as needed for hypoglycemia 100 [...] was found Confirmed by ANGELA MARADIAGA MD ([id number]) on 01/03/2019 8:10:39 PM LAB RESULTS reviewed during visit today primarily from [facility]: LIPID Lab Results Component Value Date [...] BNP 15 01/02/[address] [facility] for angiogram results on 019 which is summarized in the HPI. RESULTS- I reviewed reports from [facility]: No results found. Left heart catheterization [...] ASSESSMENT: 1. Non-critical Coronary artery disease involving [place] coronary artery of [place] heart [facility] angina pectoris: A.Normal exercise sestamibi [...] Symptoms with moderate exertion of t he [place] 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 Heart failure stage [...] performed by Dr Juan Diego Gambino at [facility] on 01/30/2013.Patient had spontaneous PVC's [...] of [facility]ync[facility]al [facility]. B. [...] this chart may have been created with [employer] voice recognition software. Occasi onal wrong-word or [...] Dx); | | | | | [place] [address] | Presence of | | | | | [phone] | permanent cardiac | | | | [...] | | | | | | [place] [address] | | | | | | [phone] | | | | | | | | +--------+ + + + + documented as of this encounter Visit Diagnoses + + | Diagnosis | + + | Coronary artery disease involving [place] coronary artery of [place] heart without | | angina pectoris - Primary | + + | Symptomatic PVCs Other premature beats | + + | Essential hypertension Unspecified essential hypertension | + + documented in this encounter
--- OUTSIDE RECORDS SUMMARY | ~2019-11-12 | XMS | Encounter Summary ---
Demographics + + + | Address | [address] | | | [place] [address] | + + + | Home Phone [...] Team Providers + +------+ + | Care Domestic Violence Advocate Name | Role | Phone | + +------+ + | Michael Amanda DO | PCP | | + +------+ + Reason for Visit + + + | Reason | Comments | + + + | Medication Refill | | + + + | Dizziness | | + + + | Gastroesophageal | | | Reflux | | + + + | Hyperlipidemia | | + + + Encounter Details +--------+---------+ + + + | Date | Type | Department | Care Team | Description | +--------+---------+ + + + | 09/09/ | Office | [facility] | Michael Amanda, | Hyperlipidemia; | | 2011 | Visit | [facility] [place] | DO [address] | Hypertension; | | | | [address] | [place] | Chronic pain | | | | [place] | [address] | syndrome; Neck pain, | | | | [address] | | chronic | | | | [phone] | | | +--------+---------+ + + + [...] + + + | Blood Pressure | 140/80 | 09/09/2012 2:04 PM | | | | | PDT | | + + + + + | Pulse | 72 | 09/09/2012 2:04 PM | | | | | PDT | | + + + + + | Temperature | 37.4 C (99.3 F) | 09/09/2012 2:04 PM | | | | | PDT | | + + + + + | Respiratory Rate | 16 | 09/09/2012 2:04 PM | | | | | PDT | | + + + + + | Oxygen Saturation | 99% | 09/09/2012 2:04 PM | | | | | PDT | | + + + + + | Inhaled Oxygen | - | - | | | Concentration | | | | + + + + + | Weight | 109.8 kg (242 lb) | 09/09/2012 2:04 PM | | | | | PDT | | + + + + + | Height | - | - | | + + + + + | Body Mass Index | 29.46 | 03/09/2012 4:11 PM | | | | | PDT | | + + + + + documented in this encounter Progress Notes Michael Amanda DO - 09/09/2012 2:44 PM PDTFormatting of this note might be different fro m the original. Subjective: Patient ID: Moe Sanchez is a 52 y.o. male. HPI Comments: HYPERLIPIDEMIA: Diet: Low fat, low carb dietary compliance: Denies side effects of medications No evidence of medication toxicity Additional measures started by the patient to reduce lipids include: fiber ASA limit alcohol consumption weight reduction Denies Myalgias, abdominal pain, jaundice, constipation. Hypertension: Control and Compliance Low Sodium Diet: yes Home Blood Pressures: no BP: 140/80 mmHg ROS No headache, visual symptoms, neurologic problems, syncope No chest pain, palpitations, BENSON, orthopnea, PND, peripheral edema No side effects from any antihypertensive medications Target organ damage history No ASHD (either angina; prior KS; prior CABG) No cardiac end organ damage (either CHF or LVH) No prior stroke (or TIA). No peripheral vascular disease, renal insufficiency, or hypertensive retinopathy. Pt has depression and anxeity. Worse in winter. Pt has on celexa. Ran out one week ago. Depression has worsened. Gastroesophageal Reflux Associated symptoms include arthralgias and myalgias. His past medical history is significa nt for GERD. Hyperlipidemia Associated symptoms include myalgias. Patient's medications, allergies, past medical, surgical, social and family histories were reviewed and updated as appropriate. Pt has had a long hx of neck problems. Pt has had 3 surgeries on neck. Pt had surgery to s tabilize his neck and stabilize a compression plate that was damaged and bent. Was having n umbess in b/l upper ext. Numbness has improved And is only intermittent . Pt is on oxycon tin tid for pain and oxycodone for breakthrough pain. Pt has slowly cutting back. Pt was going through [facility] for opiate medications prior to the surgery. Pt has hx of drug use. 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 Review of Systems Constitutional: Positive for fatigue. Respiratory: Negative. Cardiovascular: Negative. Musculoskeletal: Positive for myalgias, back pain, arthralgias and gait problem. Psychiatric/Behavioral: Positive for sleep disturbance and dysphoric mood. Negative for jimbo cidal ideas. Objective: Physical Exam Constitutional: He is oriented to person, place, and time. He appears well-developed and we ll-nourished. No distress. HENT: Head: Normocephalic and atraumatic. Neck: Neck supple. No JVD present. Muscular tenderness present. Decreased range of motion p resent. No thyromegaly present. Cardiovascular: Normal rate and regular rhythm. Exam reveals no gallop and no friction rub . No murmur heard. Pulmonary/Chest: Effort normal and breath sounds normal. No respiratory distress. He has no wheezes. He has no rales. He exhibits no tenderness. Musculoskeletal: He exhibits tenderness. Cervical back: He exhibits decreased range of motion and tenderness. He exhibits no rover[place] ny tenderness. Lymphadenopathy: He has no cervical adenopathy. Neurological: He is alert and oriented to person, place, and time. Skin: Skin is dry. He is not diaphoretic. Psychiatric: He has a normal mood and affect. His behavior is normal. Assessment: 1. Hyperlipidemia Comprehensive metabolic panel, Lipid Profile Due for labs. Continue statin 2. Hypertension Comprehensive metabolic panel, Lipid Profile boderline today. Will monitor. 3. Chronic pain syndrome Pain meds rx will be taken back over by the pain center. 4. Neck pain, chronic Recent neck surgery . Slow improvement. 5. Depression Restarted SSRI. Plan: documented in this en counter Plan of Treatment +--------+ + + + + | Date | Type | Specialty | Care Team | Description | +--------+ + + + + | 11/20/ | Implant | Cardiology | Daljit Singletary, | Remote Device | | 2019 | Monitor | | [address] | Interrogation | | | | | [place], | (Primary Dx); | | | | | [place] [address] | Presence of | | | | | [phone] | permanent cardiac | | | | [...] W | | | | | | [place], | | | | | | [place] [address] | | | | | | [phone] | | | | | | | | +--------+ + + + + + +------+--------+ + + | Name | Type | Priori | Associated Diagnoses | Order Schedule | | | | ty | | | + +------+--------+ + + | Comprehensive | Lab | Routin | Hyperlipidemia | 1 Occurrences | | metabolic panel | | e | Hypertension | starting 09/09/2012 | | | | | | until 09/09/2013 | + +------+--------+ + + | Lipid Profile | Lab | Routin | Hyperlipidemia | 1 Occurrences | | | | e | Hypertension | starting 09/09/2012 | | | | | | until 09/09/2013 | + +------+--------+ + + documented as of this encounter Visit Diagnoses + + | Diagnosis | + + | Hyperlipidemia Other and unspecified hyperlipidemia | + + | Hypertension Unspecified essential hypertension | + + | Chronic pain syndrome | + + | Neck pain, chronic Cervicalgia | + + documented in this encounter"
--- OUTSIDE RECORDS SUMMARY | ~2019-11-12 | XMS | Encounter Summary ---
Demographics + + + | Address | [address] | | | [place] [address] | + + + | Home Phone [...] Team Providers + +------+ + | Care Comfort Station Supervisor Name | Role | Phone | [...] | | | | of feces, | [place], [place] | [address] | | | | | unspecified | [address] [place] | [place], [place] | | | | | fecal | [place], [place] | [address] | | | | | incontinence | [address] | Phone: | | | | | type | Phone: | [phone] | | | | | Diarrhea, | [phone] | Fax: | | | | | unspecified | Fax: | [phone] | | | | | type | [phone] | | +--------+ + + + + [...] 2018 | | GASTROENTEROLOGY | [address] [place], [place] | | | | | [address] [place] | [address] [place], [place] | | | | | [address] [place], [place] | [address] | | | | | [address] | | | | | | [phone] | | | +--------+ + + + [...] Dx); | | | | | [place] [address] | Presence of | | | | | [phone] | permanent cardiac | | | | [...] [place], | | | | | | [place] [address] | | | | | | [phone] | | | | | | | [...]
--- OUTSIDE RECORDS SUMMARY | ~2019-11-12 | XMS | Encounter Summary ---
Demographics + + + | Address | [address] | | | [place] [address] | + + + | Home Phone [...] Team Providers + +------+ + | Care Talent Acquisition Director Name | Role | Phone | + [...] 2016 | | CARDIOLOGY [address] | TRACK MACHINE OPERATOR REPAIRER [address] | | | | | [place], | [place], [place] | | | | | [place] [address] | [address] | | | | | [phone] | | | +--------+--------+ + + + [...] Dx); | | | | | [place] [address] | Presence of | | | | | [phone] | permanent cardiac | | | | [...] | | | | | | [place] [address] | | | | | | [phone] | | | | | | | | +--------+ + + + + documented as of this encounter Visit Diagnoses Not on filedocumented in this encounter"
--- OUTSIDE RECORDS SUMMARY | ~2019-11-12 | XMS | Encounter Summary ---
Demographics + + + | Address | [address] | | | [place] [address] | + + + | Home Phone [...] + + + + | 06/14/ | [facility] | [facility] | Kennethshaistatesha Shaistakenneth, | | | 2008 - | Encounter | MED CTR MP INTRA OP | [address] | | | | | [address] | [place], | | | 06/15/ | | [place] | [place] [address] | | | 2008 | | [address] | [phone] | | | | | [phone] | | | +--------+ + + + [...] | | [address] [facility] | Interrogation | | | | | [place], | (Primary Dx); | | | | | [place] [address] | Presence of | | | | | [phone] | permanent cardiac | | | | [...] W | | | | | | [place], | | | | | | [place] [address] | | | | | | [phone] | | | | | | | | +--------+ + + + + documented as of this encounter Visit Diagnoses Not on filedocumented in this encounter"
--- OUTSIDE RECORDS SUMMARY | ~2019-11-12 | XMS | Encounter Summary ---
Demographics + + + | Address | [address] | | | [place] [address] | + + + | Home Phone | | + + + | Preferred Language | Unknown | + + + | Marital Status | | + + + | Tenriism Affiliation | 1013 | + + + | Race | Unknown | + + + | Ethnic Group | Unknown | + + + Author + + + | Author | [facility] | | | and [place] | + + + | Organization | [facility] | | | [...] Providers + +------+ + | Care Sole Trimmer Name | Role | Phone | [...] + + | 08/17/ | Office | [facility] | Michael Amanda, | Testosterone | | 2012 | Visit | [facility] [place] | DO [address] | deficiency (Primary | | | | [address] | [place] | Dx); Hypoglycemia; | | | | [place] | [address] | Herpes | | | | [address] | | | | | | [phone] | | | +--------+---------+ + + + [...] lowering his testosterone levels. He seen at [facility]. He was prescribed OxyContin and [...] erectile dy sfunction. He was seen at [facility] yesterday and they prescribed him testostero ne cypionate injections. He's not sure when they wanted him to come back for labs. He has a followup appointment with [facility] in one month. 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 This note is dictated using [employer] voice recognition software. This note was dictated [...] Interrogation | | | | | [place], | (Primary Dx); | | | | | [place] [address] | Presence of | | | | | [phone] | permanent cardiac | | | | [...] W | | | | | | [place], | | | | | | [place] [address] | | | | | | [phone] | | | | | | | [...]
--- OUTSIDE RECORDS SUMMARY | ~2019-11-12 | XMS | Encounter Summary ---
Demographics + + + | Address | [address] | | | [place] [address] | + + + | Home Phone [...] Team Providers + +------+ + | Care Flatbed Truck Driver Name | Role | Phone | [...] | SR | | | | | [phone] | | | +--------+ + + + [...] Dx); | | | | | [place] [address] | Presence of | | | | | [phone] | permanent cardiac | | | | [...] | | | | | | [place], | | | | | | [place] [address] | | | | | | [phone] | | | | | | | [...]
--- OUTSIDE RECORDS SUMMARY | ~2019-11-12 | XMS | Encounter Summary ---
Demographics + + + | Address | [address] | | | [place] [address] | + + + | Home Phone [...] Providers + +------+ + | Care Executive Chairman Of The Board Name | Role | Phone | + +------+ + | Michael Amanda DO | PCP | | + +------+ + Encounter Details +--------+ + + + + | Date | Type | Department | Care Team | Description | +--------+ + + + + | 01/31/ | Hospital | [facility] | Adrian Gutierrez MD | | | 2012 | Encounter | [facility]ART MED CTR | [address] | | | | | EMERGENCY CENTER | [place], [place] | | | | | [address] | [address] | | | | | [place] | [phone] | | | | | [address] | | | | | | [phone] | | | +--------+ + + + [...] + + + +---------+ + + | Derby-3 Fatty | CAPS, one capsule by | [...] Dx); | | | | | [place] [address] | Presence of | | | | | [phone] | permanent cardiac | | | | [...] W | | | | | | [place], | | | | | | [place] [address] | | | | | | [phone] | | | | | | | [...] + + + | Exam Performed Location: [facility] [place] TWO-VIEW | MISCELANIOUS | | CHEST CLINICAL [...] | an acute cardiopulmonary process. S: SQ ([id number]) Signed by: | | | JAYNE SPEAR MD | | + + + + + | Procedure Note | + + | Kevin, Rad Conversion - 09/13/2013 10:25 PM PDT Exam Performed [facility] INFORMATION:Shortness of | | breath.COMPARISON:None.FINDINGS:There is a left subclavian dual lead cardiac pacer. The | | heart sizeand mediastinal contours are normal. The pulmonary vasculature isnormal. No | | focal airspace opacities, pleural effusions, orpneumothorax. Cervical fusion hardware | | is noted. No acute osseousfindings.IMPRESSION:No evidence of an acute cardiopulmonary | | process.S: SQ ([id number]) Signed by: JAYNE SPEAR MD | |COMPARISON: [...] | | | | | |S: SQ ([id number]) Signed by: JAYNE SPEAR MD | + + + +---------+ + + | Performing | Address | City/State/Zipcode | Phone Number | | Organization | | | | + +---------+ + + | MISCELLANEOUS LAB | | | [phone] | + +---------+ + + | MISCELANIOUS LAB | | | [phone] | + +---------+ + + Troponin I [...] + + | [facility] | [address] | [place] [address] | | | [facility] | [...] + + | [facility] | [address] | [place] [address] | | | [facility] | [...] + + | [facility] | [address] | [place] [address] | | | [facility] | | | | | LABORATORY | | | | + + + + + | [facility] | | | | | [facility]ART [facility] | | | | [...] + + | [facility] | [address] | [place] [address] | | | [facility] | | | | | LABORATORY | | | | + + + + + | [facility] | | | | | [facility] | | | | | [...] + + | Glucose | 154 (H)Comment: [place] | 65 - 99 mg/dL | [facility] | | | | Diabetes Association | [...] + + | [facility] | [address] | [place] [address] | | | [facility] | | | | | LABORATORY | | | | + + + + + | [facility] | | | | | [facility] | | | | | LABORATORY | | | | + + + + + documented in this encounter Visit Diagnoses Not on filedocumented in this encounter"
--- OUTSIDE RECORDS SUMMARY | ~2019-11-12 | XMS | Encounter Summary ---
Demographics + + + | Address | [address] | | | [place] [address] | + + + | Home Phone [...] Providers + +------+ + | Care Behavioral Health Care Coordinator Name | Role | Phone | [...] W | | | | | [place] [facility], | [place], | | | | | [place] [address] | [place] [address] | | | | | [phone] | [phone] | | | | | | | [...] | 12/30/ | Implant | Cardiology | AnshujohnsoncherelleDaljit, | Remote Device | | 2018 | Monitor | | [address] [place] | Interrogation | | | | | [facility], | (Primary Dx); | | | | | [place] [address] | Presence of | | | | | [phone] | permanent cardiac | | | | [...] | | | | | | [place], | | | | | | [place] [address] | | | | | | [phone] | | | | | | | | +--------+ + + + + documented as of this encounter Visit Diagnoses Not on filedocumented in this encounter"
--- OUTSIDE RECORDS SUMMARY | ~2019-11-12 | XMS | Encounter Summary ---
Demographics + + + | Address | [address] | | | [place] [address] | + + + | Home Phone [...] Providers + +------+ + | Care Sole Cementer Name | Role | Phone | + [...] | [address] | [address] | | | | | Incontinence | AVE [place] | [place], | | | | | | [place], [place] | [place] [address] | | | | | | [address] | Phone: | | | | | | Phone: | [phone] | | | | | | [phone] | Fax: | | | | | | Fax: | [phone] | | | | | | [phone] | | +--------+ + + + + + Reason for Visit + + + | Reason | Comments | + + + | Medicare Wellness | | + + + Encounter Details +--------+---------+ + + + | Date | Type | Department | Care Team | Description | +--------+---------+ + + + | 07/25/ | Office | [facility] | Michael Amanda, | Preventative health | | 2014 | Visit | [facility] [place] | DO [address] | care (Primary Dx); | | | | [address] | [place] | Cannabis abuse, | | | | [place] | [address] | daily use; Urinary | | | | [address] | | frequency; | | | | [phone] | | Incontinence; | | | | [...] Father colon,prostate Social History: Patient Status: [2]. Moe's Tobacco Use: History Smoking status Former Smoker [...] needed for Chest pain. 25 tablet 12 [place]-3 Fatty Acids (SALMON OIL-1000 PO) CAPS, one capsule by mouth daily twice daily ONE TOUCH DELICA LANCETS [facility] Check glucose as needed for hypoglycemia 100 [...] as Nurse Practitioner (Cardiology) FENG Chou (Physician Awning Spreader) Current Medicare Suppliers: [facility] - [place], [place] - [address] [place] [address] [facility] - [place] - [address] [place] [address] HEALTH RISK ASSESSMENT: : The patient or [...] following health maintenance items are reviewed in [facility] and correct as of today: Health Maintenance [...] no kevin in the usual sections in [place]. documented in this en counter Plan of [...] Dx); | | | | | [place] [address] | Presence of | | | | | [phone] | permanent cardiac | | | | [...] | | | | | [place], | | | | | | [place] [address] | | | | | | [phone] | | | | | | | [...] - Primary Routine [facility] | | care facility | + [...]
--- OUTSIDE RECORDS SUMMARY | ~2019-11-12 | XMS | Encounter Summary ---
Demographics + + + | Address | [address] | | | [place] [address] | + + + | Home Phone [...] Providers + +------+ + | Care Automatic Glove Former Name | Role | Phone | + [...] | | | DDD | Scotty C, MANAGER OPERATING | [facility] | | | | | (degenerativ | [address] | [facility] | | | | | e disc | [facility] | MEDICAL | | | | | disease), | [address] | CENTER [address] | | | | | lumbar | B | [place] | | | | | Chronic | [place], [place] | [place], | | | | | left-sided | [address] | [place] [address] | | | | | low back | Phone: | Phone: | | | | | pain with | [phone] | [phone] | | | | | left-sided | Fax: | Fax: | | | | | sciatica | [phone] | [phone] | | | | | History of [...] | | | DDD | Scotty C, MANAGER OPERATING | [address] [place] | | | | | (degenerativ | [address] | [place], | | | | | e disc | [facility] | [place] [address] | | | | | disease), | [address] | Phone: | | | | | lumbar | B | [phone] | | | | | Chronic | [place], [place] | Fax: | | | | | left-sided | [address] | [phone] | | | | | low back | Phone: | | | | | | pain with | [phone] | | | | | | left-sided | Fax: | | | | | | sciatica | [phone] | | | | | | History [...] [facility] | Scotty Galdamez, | DDD (degenerative | | 2018 | Encounter | MED CTR [facility] [address] | MANAGER OPERATING [address] [facility] | disc disease), | | | | [place], | [address] | lumbar; Chronic | | | | [place] [address] | [place] [address] | left-sided low back | | | | [phone] | [phone] | pain with left-sided | | | [...] + + + +---------+ + + | Zeigler-3 Fatty | CAPS, one capsule by | [...] Monitor | | MD [facility] | Interrogation | | | | | [place], | (Primary Dx); | | | | | [place] [address] | Presence of | | | | | [phone] | permanent cardiac | | | | [...] W | | | | | | [place], | | | | | | [place] [address] | | | | | | [phone] | | | | | | | [...]
--- OUTSIDE RECORDS SUMMARY | ~2019-11-12 | XMS | Encounter Summary ---
Demographics + + + | Address | [address] | | | [place] [address] | + + + | Home Phone [...] Team Providers + +------+ + | Care Steward/Stewardess Tourist Class Name | Role | Phone | + [...] 2015 | | CARDIOLOGY [address] | PHYSICIAN ALLERGIST IMMUNOLOGIST [address] | | | | | [place], | [place], [place] | | | | | [place] [address] | [address] | | | | | [phone] | | | +--------+--------+ + + + [...] Dx); | | | | | [place] [address] | Presence of | | | | | [phone] | permanent cardiac | | | | [...] | | | | | | [place] [address] | | | | | | [phone] | | | | | | | | +--------+ + + + + documented as of this encounter Visit Diagnoses Not on filedocumented in this encounter"
--- OUTSIDE RECORDS SUMMARY | ~2019-11-12 | XMS | Encounter Summary ---
Demographics + + + | Address | [address] | | | [place] [address] | + + + | Home Phone [...] + +------+ + | Care Operations Intelligence Name | Role | Phone | + [...] | +--------+ + + + + | 06/24/ | Telephone | [facility] | Daljit Singletary, | Lab Order | | 2017 | | CARDIOLOGY [address] | MD [address] | | | | | [place], | [place], | | | | | [place] [address] | [place] [address] | | | | | [phone] | [phone] | | | | | | | [...] Dx); | | | | | [place] [address] | Presence of | | | | | [phone] | permanent cardiac | | | | [...] | | | | | | [place] [address] | | | | | | [phone] | | | | | | | | +--------+ + + + + + +------+--------+ + + | Name | Type | Priori | Associated Diagnoses | Order Schedule | | | | ty | | | + +------+--------+ + + | Lipid Panel | Lab | Routin | Coronary artery | Expected: | | | | e | disease involving | 06/24/2018, Expires: | | | | | capitan grande coronary | 06/24/2019 | | | | | artery of cap[place] grande | | | | | | heart without angina | | | | | | pectoris | | | | | | Hyperlipidemia, | | | | | | mixed | | + +------+--------+ + + documented as of this encounter Visit Diagnoses + + | Diagnosis | + + | Coronary artery disease involving cap[place] coronary artery of cap[place] grande heart without | | angina pectoris - Primary | + + | Hyperlipidemia, mixed Mixed hyperlipidemia | + + documented in this encounter"
--- OUTSIDE RECORDS SUMMARY | ~2019-11-12 | XMS | Encounter Summary ---
Demographics + + + | Address | [address] | | | [place] [address] | + + + | Home Phone [...] Providers + +------+ + | Care Lens Grinding Machine Operator Name | Role | Phone [...] | | CARDIOLOGY [address] | Janeen GAS PLUMBER [address] | | | | | [place], | [place], | | | | | [place] [address] | [place] [address] | | | | | [phone] | [phone] | | | | | | | [...] 2019 | Monitor | | MD [address] | Interrogation | | | | | [place], | (Primary Dx); | | | | | [place] [address] | Presence of | | | | | [phone] | permanent cardiac | | | | [...] W | | | | | | [place], | | | | | | [place] [address] | | | | | | [phone] | | | | | | | | +--------+ + + + + documented as of this encounter Visit Diagnoses Not on filedocumented in this encounter"
--- OUTSIDE RECORDS SUMMARY | ~2019-11-12 | XMS | Encounter Summary ---
Demographics + + + | Address | [address] | | | [place] [address] | + + + | Home Phone [...] Team Providers + +------+ + | Care Abrasive Worker Name | Role | Phone | [...] | CARDIOLOGY [address] | reprogramming/check | | | | [place], | [place], | DO NOT DELETE | | | | [place] [address] | [place] [address] | (Primary Dx); | | | | [phone] | [phone] | Sinoatrial node | | | | | | dysfunction ([facility]) | | | | | | with [...] | | MD [facility] | Interrogation | | | | | [place], | (Primary Dx); | | | | | [place] [address] | Presence of | | | | | [phone] | permanent cardiac | | | | [...] | | | | | | [place] [address] | | | | | | [phone] | | | | | | | [...] 1960: | | AGE: 56 y.o.Pacemaker Evaluation ReportAure[facility] servic[facility] 2015Reason for evaluation: | | routineIndication [...]
--- OUTSIDE RECORDS SUMMARY | ~2019-11-12 | XMS | Encounter Summary ---
Demographics + + + | Address | [address] | | | [place] [address] | + + + | Home Phone [...] Team Providers + +------+ + | Care Educational Paraprofessional Name | Role | Phone | [...] CTR CASE | RN | (referral from [facility]) | | | | MANAGEMENT [address] | | | | | | [place], | | | | | | [place] [address] | | | | | | [phone] | | | +--------+ + + + [...] | | [address] [facility] | Interrogation | | | | | [place], | (Primary Dx); | | | | | [place] [address] | Presence of | | | | | [phone] | permanent cardiac | | | | [...] | | | | | | [place] [address] | | | | | | [phone] | | | | | | | | +--------+ + + + + documented as of this encounter Visit Diagnoses Not on filedocumented in this encounter"
--- OUTSIDE RECORDS SUMMARY | ~2019-11-12 | XMS | Encounter Summary ---
Demographics + + + | Address | [address] | | | [place] [address] | + + + | Home Phone [...] Team Providers + +------+ + | Care Sexologist Name | Role | Phone | + [...] + | 06/27/ | Telephone | [facility] | Michael Amanda, | ED Follow-up (s/p | | 2014 | | [facility] | DO [address] | [facility]) | | | | [address] | [place] | | | | | [place] | [address] | | | | | [address] | | | | | | [phone] | | | +--------+ + + + [...] Dx); | | | | | [place] [address] | Presence of | | | | | [phone] | permanent cardiac | | | | [...] W | | | | | | [place], | | | | | | [place] [address] | | | | | | [phone] | | | | | | | | +--------+ + + + + documented as of this encounter Visit Diagnoses Not on filedocumented in this encounter"
--- OUTSIDE RECORDS SUMMARY | ~2019-11-12 | XMS | Encounter Summary ---
Demographics + + + | Address | [address] | | | [place] [address] | + + + | Home Phone [...] Team Providers + +------+ + | Care Brick Grader Name | Role | Phone | [...] [address] | | | | | [place], | [place], | | | | | [place] [address] | [place] [address] | | | | | [phone] | [phone] | | | | | | | [...] | 2018 | Monitor | | [address] [place] | Interrogation | | | | | [place], | (Primary Dx); | | | | | [place] [address] | Presence of | | | | | [phone] | permanent cardiac | | | | [...] | | | | | | [place], | | | | | | [place] [address] | | | | | | [phone] | | | | | | | | +--------+ + + + + documented as of this encounter Visit Diagnoses Not on filedocumented in this encounter"
--- OUTSIDE RECORDS SUMMARY | ~2019-11-12 | XMS | Encounter Summary ---
Demographics + + + | Address | [address] | | | [place] [address] | + + + | Home Phone [...] Team Providers + +------+ + | Care Purchasing Administrator Name | Role | Phone | + +------+ + PCP | Unavailable | + +------+ + Encounter Details +--------+ + + + + | Date | Type | Department | Care Team | Description | +--------+ + + + + | 10/09/ | [facility] | [facility] | Jonathan, | | | 2008 | Encounter | MED CTR EMERGENCY | Martell Cr MD [address] | | | | | CENTER [address] | [place] | | | | | [place] | [place] [address] | | | | | [address] | [phone] | | | | | [phone] | | | +--------+ + + + [...] Dx); | | | | | [place] [address] | Presence of | | | | | [phone] | permanent cardiac | | | | [...] | | | | | | [place] [address] | | | | | | [phone] | | | | | | | | +--------+ + + + + documented as of this encounter Visit Diagnoses Not on filedocumented in this encounter"
--- OUTSIDE RECORDS SUMMARY | ~2019-11-12 | XMS | Encounter Summary ---
Demographics + + + | Address | [address] | | | [place] [address] | + + + | Home Phone [...] Providers + +------+ + | Care Supervisor Testing Name | Role | Phone | + [...] [place], [place] | | | | | [place] | | [address] Phone: | | | | | CYSTO/URETER | | [phone] | | | | | O | | Fax: | | | | | W/LITHOTRIPS | | [phone] | | | | | Y &INDWELL [...] + + + + | 04/13/ | Hospital | [facility] | Matthew Uriarte | Preoperative | | 2019 | Encounter | MED CTR OR INTRA OP | Dahl, MD [address] | clearance (Primary | | | | [address] | [place] | Dx); Left ureteral | | | | [place], [place] | [address] | calculus; Kidney | | | | [address] | | stones | | | | [phone] | | | +--------+ + + + [...] Care Everywhere.Kidney Stones, Treating: Ureteroscopic Stone Removal (Syrian)Stents, Ureteral (Syrian)documented in this encounter Medications at Time of [...] + + + +---------+ + + | [place]-3 Fatty | CAPS, one capsule by | [...] | | | | | | | [place] coronary | | | | | | | artery of [place] | | | | | | | [...] Dx); | | | | | [place] [address] | Presence of | | | | | [phone] | permanent cardiac | | | | [...] | Visit | | [address] | | | | | | [place], | | | | | | [place] [address] | | | | | | [phone] | | | | | | | [...] [facility] | | | | | | at:[phone]. | | | | + + + [...] | | | | | d by [facility]. It has not | | | | [...] + | Performed at: 01 - [facility] [address] [facility], | REFERENCE LAB | | [place], [place] [id number] Concrete Mixer Operator: Yeny Rios MD, Phone: | ARSH - KINA | | [phone] | | + + + + + + + + | Performing | Address | City/State/Zipcode | Phone Number | | Organization | | | | + + + + + | REFERENCE LAB | [address] | [place] [address] | [phone] | | [facility] | Drive [...] | [address] | [place], [place] | [phone] | | [facility] | | [address] | | | - LABORATORY | | | | + + + + + CBC no Differential (04/13/2019 7:07 AM PDT) + +-------+ + + + | Component | Value | Ref Range | Performed | Pathologist | | | | | At | Signature | + +-------+ + + + | WBC | 7.6 | 4.0 - 11.0 K/uL | [facility] | | | | | [...] [address] | [place] | [phone] | | [facility] | | [address] | | | - LABORATORY | | | | + + + + + Ejime INR (04/13/2019 7:07 AM PDT) + + [...] | [address] | [place] | [phone] | | [facility] | | [address] | | | - LABORATORY | | [...] [address] | [place] | [phone] | | [facility] | | [address] | | | - LABORATORY | | [...] 11 | 9 - 23 mg/dL | [facility] | | | | | | [facility] | | | | | | MEDICAL | | | | | | CENTER - | | | | | | LABORATORY | | + + + + + + | Creatinine | 0.92 | 0.70 - 1.30 | [facility] | | | | | mg/dL | [facility] | | | | | | MEDICAL | | | | | | CENTER - | | | | | | LABORATORY | | + + + + + + | eGFR if not | >60Comment: GLOMERULAR | >=60 | [facility] | | | | FILTRATION | mL/min/1.73m2 | [facility] | | | NIUEAN | RATE,ESTIMATED | | MEDICAL | | | | mL/min/1.20d7Csyn than | | CENTER - | | [...] | | | mg/dL | [facility] | | | [...] [address] | [place] | [phone] | | [facility] | | [address] | | | - LABORATORY | | | | + + + + + documented in this encounter Visit Diagnoses + + | Diagnosis | + + | Preoperative clearance - Primary Preoperative examination, unspecified | + + | Left ureteral calculus Calculus of ureter | + + | Kidney stones Calculus of kidney | + + | Obstructive sleep apnea [...] day), First | | | dose on [facility] 04/13/19 at 1400, | | | Start 8 hours after pre-op dose., | | | Post-op/Phase II | | + +---+ | | | + +---+ | albuterol 2.5 mg/3 mL nebulizer | | | solution 2.5 mg 2.5 mg, | | | Nebulization, ONCE PRN, Wheezing, | | | Starting [facility] 04/13/19 at 0917, | | | For [...] HR < 40, | | | Starting [facility] 04/13/19 at 0917, For | | | 2 doses, May repeat one time | | | after 1 min., Recovery/Phase I | | + +---+ | | | + +---+ + +-------+ +--------+---+---+ | ciprofloxacin (CIPRO) tablet | Given | 04/13/20 | 500 mg | | | | 500 mg 500 mg, Oral, ONCE, Wed | | 7:35 | | | | | 04/13/19 [...] | | | | | | | mhdolh-jfq-lgesr use of at least | | | [...] day), | | | First dose on [facility] 04/13/19 at | | | 2030, If [...]
--- OUTSIDE RECORDS SUMMARY | ~2019-11-12 | XMS | Encounter Summary ---
Demographics + + + | Address | [address] | | | [place] [address] | + + + | Home Phone [...] Team Providers + +------+ + | Care Circuitry Negative Inspector Name | Role | Phone | + +------+ + PCP | Unavailable | + +------+ + Encounter Details +--------+ + + + + | Date | Type | Department | Care Team | Description | +--------+ + + + + | 05/13/ | [facility] | [facility] | Dom Graham, | | | 2010 | Encounter | MED CTR EMERGENCY | [address] | | | | | CENTER [address] | [place] | | | | | [place] | [address] | | | | | [address] | | | | | | [phone] | | | +--------+ + + + [...] 2019 | Monitor | | [address] | Interrogation | | | | | [place], | (Primary Dx); | | | | | [place] [address] | Presence of | | | | | [phone] | permanent cardiac | | | | [...] W | | | | | | [place], | | | | | | [place] [address] | | | | | | [phone] | | | | | | | [...] | | | | | the [place] | | | | | | Access [...] ST. | [address] | [place], [place] | [phone] | | [facility] | | [address] | | | - LABORATORY | | | | + + + + + | [facility] | [address] | [place], [place] | | | [facility] | | [address] | | | - LABORATORY | | [...] | | Neutrophils | | | [facility] | | | | | | MEDICAL | | | | | | CENTER - | | | | | | LABORATORY | | + +---------+ + + + | Absolute | 2.1 | 0.6 - 3.2 K/uL | [facility] | | | Lymphocytes | | | [facility] | | | | | | MEDICAL | | | | | | CENTER - | | | | | | LABORATORY | | + +---------+ + + + | Absolute | 0.6 | 0.0 - 1.0 K/uL | [facility] | | | Monocytes | | | [facility] | | [...] 0.0 | 0.0 - 0.1 K/uL | [facility] | | | Basophils | | | . [facility]HEL[facility] | | [...] + | [facility] | [address] | [place] | [phone] | | [facility] | | [address] | | | - LABORATORY | | | | + + + + + | [facility] | [address] | [place], [place] | | | [facility] | | [address] | | | - LABORATORY | | | | + + + + + Comprehensive Metabolic Panel (05/13/2011 3:25 PM PDT) + + + + + + | Component | Value | Ref Range | Performed | Pathologist | | | | | At | Signature | + + + + + + | Glucose | 88 | 70 - 109 mg/dL | [facility] [...] 143 | 136 - 149 mEq/L | [facility] | | | | | | [facility] | | | | | | MEDICAL | | | | | | CENTER - | | | | | | LABORATORY | | + + + + + + | K | 3.6 | 3.5 - 5.1 mEq/l | [facility] | | | | | [...] + | [facility] | [address] | [place], [place] | [phone] | | [facility] | | [address] | | | - LABORATORY | | | | + + + + + | [facility] | [address] | [place], [place] | | | [facility] | | [address] | | | - LABORATORY | | [...] + + | Performing | Address | City/State[facility] | Phone Number | | Organization | | | | + + + + + | [facility] | [address] | [place], [place] | [phone] | | [facility] | | [address] | | | - LABORATORY | | | | + + + + + | [facility] | [address] | [place], [place] | | | [facility] | | [address] | | | - LABORATORY | | | | + + + + + XR Chest AP Portable (05/13/2011 3:01 PM PDT) + + | Specimen | + + | | + + + + + | Narrative | Performed At | + + + | [facility] Diagnostic Imaging Department | [facility] | | [address] [facility] | [facility] | | PORTABLE CHEST CLINICAL | DIAG [...] Transcribed Date/Time: | | | 05/13/2011 17:06 Facility Security Officer: <Electronically Signed | | | by Jama Solis MD> 05/13/112038 | | + + + + + | Procedure Note | + + | Kevin, Rad Conversion - 12/29/2013 3:12 PM [facility] | | Diagnostic Imaging Department [address] [place] [address] | | PORTABLE CHEST CLINICAL HISTORY: TACHYCARDIA. [...] 16:57 | |Transcribed Date/Time: 05/13/2011 17:06 | |Facility Security Officer: | |<Electronically Signed by Jama Solis MD> [...]
--- OUTSIDE RECORDS SUMMARY | ~2019-11-12 | XMS | Encounter Summary ---
Demographics + + + | Address | [address] | | | [place] [address] | + + + | Home Phone [...] Team Providers + +------+ + | Care Molder Offbearer Name | Role | Phone | + +------+ + | Michael Amanda DO | PCP | | + +------+ + Encounter Details +--------+ + + + + | Date | Type | Department | Care Team | Description | +--------+ + + + + | 01/30/ | Hospital | [facility] | Jay Gambino MD | | | 2012 - | Encounter | HEART MED CTR | [address] | | | | | CARDIAC TELEMETRY | [address] [place], | | | 01/31/ | | [address] | [place] [address] | | | 2012 | | [place] | [phone] | | | | | [address] | | | | | | [phone] | | | +--------+ + + + [...] 1960 ADMISSION DATE: 01/30/2013 DISCHARGE DATE: 01/31/2013 [id number] / [id number] ADMITTING DIAGNOSES: 1. Symptomatic PVCs. 2. Sinus [...] 150, 1 to 2 tabs daily. 10. [place]-3 fatty acids 1000 mg b.i.d. MOE GAY ADM:01/30/13 [id number] 01/31/13 DIS [place] DISCHARGE SUMMARY [id number] [facility] Carmela Cuevas PAC B [facility] MD Meena Pleitez THIS REPORT IS CONFIDENTIAL AND NOT TO BE RELEASED WITHOUT PROPER AUTHORIZATION. Located Within [facility] 11. Valacyclovir 500 mg daily. B. New medication added: Diltiazem CD 180 a day. FOLLOWUP: The patient has a followup appointment on 03/02/2013 at 10:[address] Niles meza at the [facility] [place], [address]. No heavy lifting or driving times 48 hours. YOANA Barlow MD A [facility] #[id number] cc: MD Carmela Pleitez PA-C Electronically Signed 02/06/13 1616 LAKESHIA Barlow Electronically Signed 02/20/13 0731 Jay Gambino MD MOE GAY ADM:01/30/13 [id number] 01/31/13 DIS [place] DISCHARGE SUMMARY [id number] [facility] LAKESHIA Barlow B [facility] Jay Gambino MD R THIS REPORT IS CONFIDENTIAL AND NOT TO BE RELEASED WITHOUT PROPER AUTHORIZATION.Electronica lly signed by Jael Brown at 02/20/2013 7:31 AM FRANCYZzCarmela Moncada - 02/01/20 13 8:44 AM PDT PATIENT NAME: MOE GAY Sex/Age: M / 52Y : 1960 ADMISSION DATE: 01/30/2013 DISCHARGE DATE: 01/31/2013 [id number] / [id number] ADMITTING DIAGNOSES: 1. Symptomatic PVCs. 2. Sinus [...] 150, 1 to 2 tabs daily. 10. [place]-3 fatty acids 1000 mg b.i.d. MOE GAY ADM:01/30/13 [id number] 01/31/13 DIS [place] DISCHARGE SUMMARY [id number] [facility] LAKESHIA Barlow B [facility] MD Meena Pleitez THIS REPORT IS CONFIDENTIAL AND NOT TO BE RELEASED WITHOUT PROPER AUTHORIZATION. Located Within [facility] 11. Valacyclovir 500 mg daily. B. New medication added: Diltiazem CD 180 a day. FOLLOWUP: The patient has a followup appointment on 03/02/2013 at 10:[address] Niles meza at the [facility] [place], [address]. No heavy lifting or driving times 48 hours. YOANA Barlow MD A [facility] #[id number] cc: MD Carmela Pleitez PA-C Electronically Signed 02/06/13 1616 LAKESHIA Barlow MOE GAY ADM:01/30/13 [id number] 01/31/13 DIS [place] DISCHARGE SUMMARY [id number] [facility] LAKESHIA Barlow ES B [facility] Jay Gambino MD R THIS REPORT IS [...] + + +---------+ + + | [place]-3 Fatty | CAPS, one capsule by | [...] Dx); | | | | | [place] [address] | Presence of | | | | | [phone] | permanent cardiac | | | | [...] W | | | | | | [place], | | | | | | [place] [address] | | | | | | [phone] | | | | | | | [...] + | [facility] | [address] | [place] [address] | | | [facility] | [...] + + | [facility] | [address] | [place] [address] | | | [facility] | [...] + + | Glucose | 113 (H)Comment: Polish | 65 - 99 mg/dL | [facility] | | | | Diabetes Association | [...] + + | [facility] | [address] | [place] [address] | | | [facility] | | | | | LABORATORY | | | | + + + + + | [facility] | | | | | [facility] | | | | | LABORATORY | | | | + + + + + documented in this encounter Visit Diagnoses Not on filedocumented in this encounter"
--- OUTSIDE RECORDS SUMMARY | ~2019-11-12 | XMS | Encounter Summary ---
Demographics + + + | Address | [address] | | | [place] [address] | + + + | Home Phone [...] Providers + +------+ + | Care Electric Lineman Name | Role | Phone | + [...] unspecified | [address] | [address] | | | | | type | [address] | [place], | | | | | Procedures | [place], | [place] | | | | | [place] | [place] [address] | [address] | | | | | Stress Test | Phone: | Phone: | | | | | (Vasodilator | [phone] | [phone] | | | | | ) CHG | Fax: | Fax: | | | | | MYOCARDIAL | [phone] | [phone] | | | | | SPECT | | | | | | | MULTIPLE | | | | | | | STUDIES [place] | | | | | | | CV STRS TST | | | | | | | XERS&/OR RX | | | | | | | CONT ECG W/O | | | | | | | I&R VT | | | | | | | [...] unspecified | [address] | [address] | | | | | type | [address] | [place], | | | | | Procedures | [place], | [place] | | | | | [place] | [place] [address] | [address] | | | | | Stress Test | Phone: | Phone: | | | | | (Vasodilator | [phone] | [phone] | | | | | ) CHG | Fax: | Fax: | | | | | MYOCARDIAL | [phone] | [phone] | | | | | SPECT | | | | | | | MULTIPLE | | | | | | | STUDIES VT | | | | | | | CV STRS TST | | | | | | | XERS&/OR RX | | | | | | | CONT ECG W/O | | | | | | | I&R VT | | | | | | | [...] + + | 07/21/ | Hospital | [facility] | Daljit Singletary, | Chest pain, | | 2018 | Encounter | MED CTR NUCLEAR | MD [address] | unspecified type | | | | MEDICINE [address] [place], | | | | | [place], | [place] [address] | | | | | [place] [address] | [phone] | | | | | [phone] | | | | | | | [employer] ManagerPavel | | +--------+ + + + + [...] + + + +---------+ + + | [place]-3 Fatty | CAPS, one capsule by | [...] tablet by | 90 | 3 | 12/19/20 | | | (PRAVACHOL) 40 MG | [...] Dx); | | | | | [place] [address] | Presence of | | | | | [phone] | permanent cardiac | | | | [...] W | | | | | | [place], | | | | | | [place] [address] | | | | | | [phone] | | | | | | | [...] | | | | | doctor, Starting [facility] 07/21/18 at | | | | | [...] | | | | | | Starting [facility] 07/21/18 at 0822, For | | | | | | | 1 dose, Nuclear Medicine | | | | | | + +-------+ + +---+---+ +---+---+ | | | +---+---+ documented in this encounter"
--- OUTSIDE RECORDS SUMMARY | ~2019-11-12 | XMS | Encounter Summary ---
Demographics + + + | Address | [address] | | | [place] [address] | + + + | Home Phone [...] Team Providers + +------+ + | Care Staff Development Manager Name | Role | Phone | + +------+ + | Michael Amanda DO | PCP | | + +------+ + Encounter Details +--------+ + + + + | Date | Type | Department | Care Team | Description | +--------+ + + + + | 01/30/ | Hospital | [facility] | Jay Gambino MD | | | 2012 - | Encounter | [facility] | [address] | | | | | CARDIAC TELEMETRY | [address] [place], | | | 01/31/ | | [address] | [place] [address] | | | 2012 | | [place] | [phone] | | | | | [address] | | | | | | [phone] | | | +--------+ + + + [...] 1960 ADMISSION DATE: 01/30/2013 DISCHARGE DATE: 01/31/2013 [id number] / [id number] ADMITTING DIAGNOSES: 1. Symptomatic PVCs. 2. Sinus [...] 150, 1 to 2 tabs daily. 10. Saraland-3 fatty acids 1000 mg b.i.d. MOE GAY ADM:01/30/13 [id number] 01/31/13 [place] DISCHARGE SUMMARY [id number] [facility] Carmela Cuevas PAC B [facility] MD Meena Pleitez THIS REPORT IS CONFIDENTIAL AND NOT TO BE RELEASED WITHOUT PROPER AUTHORIZATION. [facility] 11. Valacyclovir 500 mg daily. B. New medication added: Diltiazem CD 180 a day. FOLLOWUP: The patient has a followup appointment on 03/02/2013 at 10:[address] Niles meza at the [facility], [address]. No heavy lifting or driving times 48 hours. YOANA Barlow MD [facility] [place] #[id number] cc: MD Carmela Pleitez PA-C Electronically Signed 02/06/13 1616 LAKEHSIA Barlow Electronically Signed 02/20/13 0731 Jay Gambino MD MOE GAY ADM:01/30/13 [id number] 01/31/13 DIS [place] DISCHARGE SUMMARY [id number] [facility] LAKESHIA Barlow B [facility] Jay Gambino MD R THIS REPORT IS CONFIDENTIAL AND NOT TO BE RELEASED WITHOUT PROPER AUTHORIZATION.Electronica lly signed by Jael Brown at 02/20/2013 7:31 AM FRANCYZzCarmela Moncada - 02/01/20 13 8:44 AM PDT PATIENT NAME: MOE GAY Sex/Age: M / 52Y : 1960 ADMISSION DATE: 01/30/2013 DISCHARGE DATE: 01/31/2013 [id number] / [id number] ADMITTING DIAGNOSES: 1. Symptomatic PVCs. 2. Sinus [...] 150, 1 to 2 tabs daily. 10. Saraland-3 fatty acids 1000 mg b.i.d. MOE GAY ADM:01/30/13 [id number] 01/31/13 DIS [place] DISCHARGE SUMMARY [id number] [facility] LAKESHIA Barlow B [facility] MD Meena Pleitez THIS REPORT IS CONFIDENTIAL AND NOT TO BE RELEASED WITHOUT PROPER AUTHORIZATION. [facility] 11. Valacyclovir 500 mg daily. B. New medication added: Diltiazem CD 180 a day. FOLLOWUP: The patient has a followup appointment on 03/02/2013 at 10:[address] Niles meza at the [facility], [address]. No heavy lifting or driving times 48 hours. YOANA Barlow MD [facility] [place] #[id number] cc: MD Carmela Pleitez PA-C Electronically Signed 02/06/13 1616 LAKESHIA Barlow MOE GAY ADM:01/30/13 [id number] 01/31/13 DIS [place] DISCHARGE SUMMARY [id number] [facility] LAKESHIA Barlow ES B [facility] Jay Gambino MD R THIS REPORT IS [...] + + + +---------+ + + | Saraland-3 Fatty | CAPS, one capsule by | [...] Dx); | | | | | [place] [address] | Presence of | | | | | [phone] | permanent cardiac | | | | [...] | | | | | | [place], | | | | | | [place] [address] | | | | | | [phone] | | | | | | | [...] + | [facility] | [address] | [place] [address] | | | [facility] | [...] + + | [facility] | [address] | [place] [address] | | | [facility] | [...] + + | Glucose | 113 (H)Comment: Czech | 65 - 99 mg/dL | [facility] | | | | Diabetes Association [...] + + | [facility] | [address] | [place] [address] | | | [facility] | | | | | LABORATORY | | | | + + + + + | [facility] | | | | | [facility] | | | | | LABORATORY | | | | + + + + + documented in this encounter Visit Diagnoses Not on filedocumented in this encounter"
--- OUTSIDE RECORDS SUMMARY | ~2019-11-12 | XMS | Encounter Summary ---
Demographics + + + | Address | [address] | | | [place] [address] | + + + | Home Phone [...] Team Providers + +------+ + | Care Light Bulb Assembler Name | Role | Phone | + +------+ + | Kirk French MD | PCP | | + +------+ + Encounter Details +--------+ + + + + | Date | Type | Department | Care Team | Description | +--------+ + + + + | 07/21/ | Hospital | [facility] | Daljit Singletary, | Palpitations; | | 2018 | Encounter | MED CTR NUCLEAR | MD [address] | Presence of | | | | MEDICINE [address] | [place], | permanent cardiac | | | | [place], | [place] [address] | pacemaker; | | | | [address] | [phone] | Sinoatrial node | | | | [phone] | | dysfunction (HCC) | +--------+ + [...] + + + +---------+ + + | Eleele-3 Fatty | CAPS, one capsule by | [...] Interrogation | | | | | [place], | (Primary Dx); | | | | | [place] [address] | Presence of | | | | | [phone] | permanent cardiac | | | | [...] | | | | | | [place], | | | | | | [place] [address] | | | | | | [phone] | | | | | | | [...] 08/25/2018 13:12 Wireless even study from | [facility] | | 07/21 until 08/22/2018. Baseline EKG [...]
--- OUTSIDE RECORDS SUMMARY | ~2019-11-12 | XMS | Encounter Summary ---
Demographics + + + | Address | [address] | | | [place] [address] | + + + | Home Phone [...] Providers + +------+ + | Care Experimental Outboard [employer] Mechanic Name | Role | Phone | [...] [place] | | | | | [place] | | [address] Phone: | | | | | CYSTO/URETER | | [phone] | | | | | O | | Fax: | | | | | W/LITHOTRIPS | | [phone] | | | | | Y &INDWELL [...] | | | | | [address] | [place] | | | | | [place] | [address] | | | | | [address] | | | | | | [phone] | | | +--------+ + + + [...] +----+---+ + + | | 0 | [place] | | | | 8 | 43-degrees | | | | 2 | | | | | 7 | | | +----+---+ + + | | 0 | First | | | | 8 | Inc/Proc St | | | | 2 | | | | | 8 | | | +----+---+ + + | | 0 | [place] off | | | | 9 | [...] 04/13/19 1219 by | | eral | [id number] catheter system; | Dominga Steen RN | [...] Interrogation | | | | | [place], | (Primary Dx); | | | | | [place] [address] | Presence of | | | | | [phone] | permanent cardiac | | | | [...] | | | | | | [place] [address] | | | | | | [phone] | | | | | | | [...] 8:23 | | | | | Starting [facility] 04/13/19 at 0823, | | AM PDT [...]
--- OUTSIDE RECORDS SUMMARY | ~2019-11-12 | XMS | Encounter Summary ---
Demographics + + + | Address | [address] | | | [place] [address] | + + + | Home Phone [...] Team Providers + +------+ + | Care Superintendent Power Name | Role | Phone | + +------+ + PCP | Unavailable | + +------+ + Encounter Details +--------+ + + + + | Date | Type | Department | Care Team | Description | +--------+ + + + + | 05/02/ | [facility] | [facility] | Jonathan, | | | 2009 | Encounter | MED CTR EMERGENCY | Martell Cr MD [address] | | | | CENTER [address] | [place] | | | | | [place] | [place] [address] | | | | | [address] | [phone] | | | | | [phone] | | | +--------+ + + + [...] Dx); | | | | | [place] [address] | Presence of | | | | | [phone] | permanent cardiac | | | | [...] | | | | | | [place] [address] | | | | | | [phone] | | | | | | | | +--------+ + + + + documented as of this encounter Visit Diagnoses Not on filedocumented in this encounter"
--- OUTSIDE RECORDS SUMMARY | ~2019-11-12 | XMS | Encounter Summary ---
Demographics + + + | Address | [address] | | | [place] [address] | + + + | Home Phone [...] | | | | CENTER [address] | [place], [place] | (Primary Dx) | | | | [place], [place] | [address] | | | | | [address] | | | | | | [phone] | | | +--------+ + + + [...] + + + +---------+ + + | Seaview-3 Fatty | CAPS, one capsule by | [...] Interrogation | | | | | [place], | (Primary Dx); | | | | | [place] [address] | Presence of | | | | | [phone] | permanent cardiac | | | | [...] W | | | | | | [place], | | | | | | [place] [address] | | | | | | [phone] | | | | | | | [...] | mL/min/1.73m2 | [facility] | | | SENEGALESE | RATE,ESTIMATED | | MEDICAL | | | | mL/min/1.78n5Xadu than | | CENTER - | | [...] ST. | [address] | [place] | [phone] | | [facility] | | [address] | | | - LABORATORY | | [...] cardiopulmonary abnormality. Dictated and Signed by: Francesco Bay | | MD Will Electronically signed: 01/24/2017 1:13 PM | | + + + + + | Procedure Note | + + | Kalpesh Brown Results In - 01/24/2017 1:16 PM PST [...] | | | | ANGELA MARADIAGA MD ([id number]) | | | | | | on [...] | | | | | | [employer] | | | | | [...] ST. | [address] | [place], [place] | [phone] | | [facility] | | [address] | | | - LABORATORY | | [...] | [address] | [place], [place] | [phone] | | [facility] | | [address] | | | - LABORATORY | | [...]
--- OUTSIDE RECORDS SUMMARY | ~2019-11-12 | XMS | Encounter Summary ---
Demographics + + + | Address | [address] | | | [place] [address] | + + + | Home Phone [...] Team Providers + +------+ + | Care Spiritual Advisor Name | Role | Phone | + +------+ + | Michael Amanda DO | PCP | | + +------+ + Encounter Details +--------+ + + + + | Date | Type | Department | Care Team | Description | +--------+ + + + + | 06/09/ | Abstract | [facility] [place] | Daljit Singletary, | | | 2012 | | CARDIOLOGY [address] | [address] | | | | | [place], | [place], | | | | | [place] [address] | [place] [address] | | | | | [phone] | [phone] | | | | | | | [...] | Monitor | | MD [address] | Interrogation | | | | | [place], | (Primary Dx); | | | | | [place] [address] | Presence of | | | | | [phone] | permanent cardiac | | | | [...] W | | | | | | [place], | | | | | | [place] [address] | | | | | | [phone] | | | | | | | | +--------+ + + + + documented as of this encounter Procedures + +--------+ + + + | Procedure Name | Priori | Date/Time | Associated Diagnosis | Comments | | | ty | | | | + +--------+ + + + | LIPID PANEL | Routin | 12/12/2012 | | Results for this | | | e | | | procedure are in the | | | | | | results section. | + +--------+ + + + | COMPREHENSIVE | Routin | 12/12/2012 | | Results for this | | METABOLIC PANEL | e | | | procedure are in the | | | | | | results section. | + +--------+ + + + | LIPID PANEL | Routin | 05/27/2012 | | Results for this | | | e | | | procedure are in the | | | | | | results section. | + +--------+ + + + | COMPREHENSIVE | Routin | 05/27/2012 | | Results for this | | METABOLIC PANEL | e | | | procedure are in the | | | | | | results section. | + +--------+ + + + documented in this encounter Results Lipid Panel (12/12/2012) + +-------+ + + + | Component | Value | Ref Range | Performed | Pathologist | | | | | At | Signature | + +-------+ + + + | Troponin I | | ng/mL | | | + +-------+ + + + | WBC | 9.9 | 10*3/uL | | | + +-------+ + + + | RBC | 5.14 | 10*6/uL | | | + +-------+ + + + | Hgb | 16.3 | 13.7 - 16.7 | | | | | | gm/dL | | | + +-------+ + + + | Hct | 49.2 | 40.0 - 50.0 % | | | + +-------+ + + + | MCV | 95.8 | 80.0 - 100.0 fL | | | + +-------+ + + + | RDW-CV | 12.1 | 11.0 - 15.0 % | | | + +-------+ + + + | MCH | 32.0 | 26.0 - 33.0 pg | | | + +-------+ + + + | MCHC | | 31.0 - 37.0 % | | | + +-------+ + + + | Platelet | 156 | 150 - 400 | | | | Count | | 10*3/uL | | | + +-------+ + + + | % Segmented | 61.1 | 40.0 - 80.0 % | | | | | | | | | | Neutrophils | | | | | + +-------+ + + + | % | 30.5 | 15.0 - 45.0 % | | | | Lymphocytes | | | | | + +-------+ + + + | % Monocytes | 7.6 | 0.0 - 12.0 % | | | + +-------+ + + + | % | 0.8 | 0.0 - 7.0 % | | | | Eosinophils | | | | | + +-------+ + + + | % Basophils | 0.0 | 1.0 % | | | + +-------+ + + + + + | Specimen | + + | Blood specimen | | (specimen) | + + Comprehensive Metabolic Panel (12/12/2012) + +-------+ + + + | Component | Value | Ref Range | Performed | Pathologist | | | | | At | Signature | + +-------+ + + + | Na | 139 | mmol/L | [facility] | | | | | | MEDICAL | | | | | | CENTER - | | | | | | LABORATORY | | + +-------+ + + + | K | 3.4 | mmol/L | [facility] | | | | | [facility] | | | | | | MEDICAL | | | | | | CENTER - | | | | | | LABORATORY | | + +-------+ + + + | Chloride | 105 | | [facility] | | | | | [facility] | | | | | | MEDICAL | | | | | | CENTER - | | | | | | LABORATORY | | + +-------+ + + + | CO2 | 25 | mmol/L | [facility] | | | [...] +-------+ + + + | Glucose | 106 | mg/dL | [facility] | | | | | | [facility] | | | | | | MEDICAL | | | | | | CENTER - | | | | | | LABORATORY | | + +-------+ + + + | BUN | 14 | mg/dL | [facility] | | | | | | [facility] | | | | | | MEDICAL | | | | | | CENTER - | | | | | | LABORATORY | | + +-------+ + + + | Creatine, | 0.81 | | [facility] | | | Serum | | | [facility] | | | | | | MEDICAL | | | | | | CENTER - | | | | | | LABORATORY | | + +-------+ + + + | GFR | >60 | | [facility] | | | ESTIMATE | | | [facility] | | | (REF) | | | MEDICAL | | | | | | CENTER - | | | | | | LABORATORY | | + +-------+ + + + | Bun/Creatin | 17.3 | | [facility] | | | ine | | | [facility] | | | | | | MEDICAL | | | | | | CENTER - | | | | | | LABORATORY | | + +-------+ + + + | Calcium | 9.6 | mg/dL | [facility] | | | | | | [facility] | | | | | | MEDICAL | | | | | | CENTER - | | | | | | LABORATORY | | + +-------+ + + + | AST | 26 | 10 - 45 U/L | [facility] | | | | | | [facility] | | | | | | MEDICAL | | | | | | CENTER - | | | | | | LABORATORY | | + +-------+ + + + | ALT | 22 | U/L | [facility] | | | | | | [facility] | | | | | | MEDICAL | | | | | | CENTER - | | | | | | LABORATORY | | + +-------+ + + + | Alkaline | 66 | 35 - 115 U/L | [facility] | | | Phosphatase | | | [facility] | | | | | | MEDICAL | | | | | | CENTER - | | | | | | LABORATORY | | + +-------+ + + + | Bilirubin | 0.6 | 0.1 - 1.5 mg/dL | [facility] | | | Total | | | [facility] | | | | | | MEDICAL | | | | | | CENTER - | | | | | | LABORATORY | | + +-------+ + + + | Total | 7.2 | 6.1 - 8.4 g/dL | [facility] | | | Protein | | | [facility] | | | | | | MEDICAL | | | | | | CENTER - | | | | | | LABORATORY | | + +-------+ + + + | Albumin | 4.6 | 3.5 - 5.0 g/dL | [facility] | | | | | | [facility] | | | | | | MEDICAL | | | | | | CENTER - | | | | | | LABORATORY | | + +-------+ + + + | Albumin/Sandee | 1.8 [...] + | [facility] | [address] | [place], [place] | [phone] | | [facility] | | [address] | | | - LABORATORY | | | | + + + + + | [facility] | [address] | [place] | | | [facility] | | [address] | | | - LABORATORY | | | | + + + + + Lipid Panel (05/27/2012) + +---------+ + + + | Component | Value | Ref Range | Performed | Pathologist | | | | | At | Signature | + +---------+ + + + | Cholesterol | 233 | | | | | , Total | | | | | + +---------+ + + + | Triglycerid | 88 | mg/dL | | | | es | | | | | + +---------+ + + + | HDL | 42 | mg/dl | | | + +---------+ + + + | LDL, | 173 (A) | 130 mg/dL | | | | Calculated | | | | | + +---------+ + + + | VLDL | 18 | | | | | Cholesterol | | | | | | Santi | | | | | + +---------+ + + + | Chol/HDL | 5.5 | | | | | Ratio | | | | | + +---------+ + + + + + | Specimen | + + | Blood specimen | | (specimen) | + + Comprehensive Metabolic Panel (05/27/2012) + + + + + + | Component | Value | Ref Range | Performed | Pathologist | | | | | At | Signature | + + + + + + | Na | 136 | mmol/L | [facility] | | | | | [facility] | | | | | | MEDICAL | | | | | | CENTER - | | | | | | LABORATORY | | + + + + + + | K | 4.3 | mmol/L | [facility] | | | | | | [facility] | | | | | | MEDICAL | | | | | | CENTER - | | | | | | LABORATORY | | + + + + + + | Chloride | 105 | | [facility] | | | | | | [facility] | | | | | | MEDICAL | | | | | | CENTER - | | | | | | LABORATORY | | + + + + + + | CO2 | 22 | mmol/L | [facility] | | | | | | [facility] | | | | | | MEDICAL | | | | | | CENTER - | | | | | | LABORATORY | | + + + + + + | Anion Gap | 13 | mmol/L | [facility] | | | | | | [facility] | | | | | | MEDICAL | | | | | | CENTER - | | | | | | LABORATORY | | + + + + + + | Glucose | 106 | mg/dL | [facility] | | | | | | [facility] | | | | | | MEDICAL | | | | | | CENTER - | | | | | | LABORATORY | | + + + + + + | BUN | 14 | mg/dL | [facility] | | | | | | [facility] | | | | | | MEDICAL | | | | | | CENTER - | | | | | | LABORATORY | | + + + + + + | Creatine, | 0.85 | | [facility] | | | Serum | | | [facility] | | | | | | MEDICAL | | | | | | CENTER - | | | | | | LABORATORY | | + + + + + + | GFR | >60 | | [facility] | | | ESTIMATE | | | [facility] | | | (REF) | | | MEDICAL | | | | | | CENTER - | | | | | | LABORATORY | | + + + + + + | Bun/Creatin | 16.5 | | [facility] | | | ine | | | [facility] | | | | | | MEDICAL | | | | | | CENTER - | | | | | | LABORATORY | | + + + + + + | Calcium | 9.8 | mg/dL | [facility] | | | | | | [facility] | | | [facility] | | MEDICAL | | | | | | CENTER - | | | | | | LABORATORY | | + + + + + + | AST | 24 | 10 - 45 U/L | [facility] | | | | | | [facility] | | | | | | MEDICAL | | | | | | CENTER - | | | | | | LABORATORY | | + + + + + + | ALT | 16 | U/L | [facility] | | | | | | [facility] | | | | | | MEDICAL | | | | | | CENTER - | | | | | | LABORATORY | | + + + + + + | Alkaline | 59 | 35 - 115 U/L | [facility] | | | Phosphatase | | | [facility] | | | | | | MEDICAL | | | | | | CENTER - | | | | | | LABORATORY | | + + + + + + | Bilirubin | 1.0 | 0.1 - 1.5 mg/dL | [facility] | | | Total | | | [facility] | | | | | | MEDICAL | | | | | | CENTER - | | | | | | LABORATORY | | + + + + + + | Total | 6.9 | 6.1 - 8.4 g/dL | [facility] | | | Protein | | | [facility] | | | | | | MEDICAL | | | | | | CENTER - | | | | | | LABORATORY | | + + + + + + | Albumin | 4.6 | 3.5 - 5.0 g/dL | [facility] [...] + + + | Albumin/Sandee | 2.0 | | [facility] | | | bulin Ratio | | | [facility] | | | | | | MEDICAL | | | | | | CENTER - | | | | | | LABORATORY | | + + + + + + | GFR | <60 | | [facility] | | | ESTIMATE | | | [facility] | | | (REF) | | | MEDICAL | | | | | | CENTER - | | | | | | LABORATORY | | + + + + + + | TSH | 1.94 | uIU/mL | [facility] | | | | | | [facility] | | | | | | MEDICAL | | | | | | CENTER - | | | | | | LABORATORY | | + + + + + + | WBC | 7.7 | 10*3/uL | [facility] | | | | | | [facility] | | | | | | MEDICAL | | | | | | CENTER - | | | | | | LABORATORY | | + + + + + + | RBC | 5.29 | 10*6/uL | [facility] | | | | | | [facility] | | | | | | MEDICAL | | | | | | CENTER - | | | | | | LABORATORY | | + + + + + + | Hgb | 17.4 (A) | 13.7 - 16.7 | [facility] | | | | | gm/dL | [facility] | | | | | | MEDICAL | | | | | | CENTER - | | | | | | LABORATORY | | + + + + + + | Hct | 48.2 | 40.0 - 50.0 % | [facility] | | | | | | [facility] | | | | | | MEDICAL | | | | | | CENTER - | | | | | | LABORATORY | | + + + + + + | MCV | 91.1 | 80.0 - 100.0 fL | [facility] | | | | | | [facility] | | | | | | MEDICAL | | | | | | CENTER - | | | | | | LABORATORY | | + + + + + + | RDW-CV | 12.8 | 11.0 - 15.0 % | [facility] | | | | | | [facility] | | | | | | MEDICAL | | | | | | CENTER - | | | | | | LABORATORY | | + + + + + + | MCH | 33.0 | 26.0 - 33.0 pg | [facility] | | | | | | [facility] | | | | | | MEDICAL | | | | | | CENTER - | | | | | | LABORATORY | | + + + + + + | MCHC | 36.0 | 31.0 - 37.0 % | [facility] | | | | | | [facility] | | | | | | MEDICAL | | | | | | CENTER - | | | | | | LABORATORY | | + + + + + + | Platelet | 175 | 150 - 400 | [facility] | | | Count | | 10*3/uL | [facility] | | | | | | MEDICAL | | | | | | CENTER - | | | | | | LABORATORY | | + + + + + + | % Segmented | 66.7 | 40.0 - 80.0 % | [facility] | | | | | | [facility] | | | Neutrophils | | | MEDICAL | | | | | | CENTER - | | | | | | LABORATORY | | + + + + + + | % | 25.5 | 15.0 - 45.0 % | [facility] | | | Lymphocytes | | | [facility] | | | | | | MEDICAL | | | | | | CENTER - | | | | | | LABORATORY | | + + + + + + | % Monocytes | 6.1 | 0.0 - 12.0 % | [facility] | | | | | | [facility] | | | | | | MEDICAL | | | | | | CENTER - | | | | | | LABORATORY | | + + + + + + | % | 1.1 | 0.0 - 7.0 % | [facility] | | | Eosinophils | | | [facility] | | | | | | MEDICAL | | | | | | CENTER - | | | | | | LABORATORY | | + + + + + + | % Basophils | 0.5 | 1.0 % | [facility] | | | [...] | | + +---------+ + + | [facility] | | | | | [facility] | | | | | - LABORATORY | | | | + +---------+ + + documented in this encounter Visit Diagnoses Not on filedocumented in this encounter"
--- OUTSIDE RECORDS SUMMARY | ~2019-11-12 | XMS | Encounter Summary ---
Demographics + + + | Address | [address] | | | [place] [address] | + + + | Home Phone [...] Team Providers + +------+ + | Care Ammonia Box Tender Name | Role | Phone | [...] | disease involving | | | | [place], | [place], | [place] coronary | | | | [place] [address] | [place] [address] | artery without | | | | [phone] | [phone] | angina pectoris | | | | [...] | 2018 | Monitor | | [address] [place] | Interrogation | | | | | [place], | (Primary Dx); | | | | | [place] [address] | Presence of | | | | | [phone] | permanent cardiac | | | | [...] W | | | | | | [place], | | | | | | [place] [address] | | | | | | [phone] | | | | | | | [...] MD | | | | | | ([id number]) on 08/29/2015 | | | | | [...] + + | Coronary artery disease involving [place] coronary artery without angina pectoris - | | Primary | + + documented in this encounter"
--- OUTSIDE RECORDS SUMMARY | ~2019-11-12 | XMS | Encounter Summary ---
Demographics + + + | Address | [address] | | | [place] [address] | + + + | Home Phone [...] Team Providers + +------+ + | Care Picker And Sorter Load And Unload Name | Role | Phone | + [...] + + | 04/24/ | Office | [facility] | [place], | Symptomatic PVCs | | 2012 | Visit | CARDIOLOGY [address] | [address] | (Primary Dx); CAD; | | | | [place], | [place], | Hyperlipidemia; | | | | [place] [address] | [place] [address] | PACEMAKER, PERMANENT | | | | [phone] | [phone] | - [employer] | | | | [...] tablet by mouth Daily. 30 tablet 6 Stacy-3 Fatty Acids (SALMON OIL-1000 PO) CAPS, one [...] Reviewed records from PCP and notes from [facility]. Assessment: 1. Symptomatic PVCs status post ablation: [...] to go back in 3 days to [place] for an attempt of ablation under general [...] He is upgraded to class I of [place] 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 There are no [...] made to ensure accuracy; however, inadvertent computerized drop board worker errors may be pre sent. documented [...] Interrogation | | | | | [place], | (Primary Dx); | | | | | [place] [address] | Presence of | | | | | [phone] | permanent cardiac | | | | [...] | | | | | | [place], | | | | | | [place] [address] | | | | | | [phone] | | | | | | | | +--------+ + + + + documented as of this encounter Visit Diagnoses + + | Diagnosis | + + | Symptomatic PVCs - Primary Other premature beats | + + | CAD Coronary atherosclerosis of unspecified type of vessel, wiyot or graft | + + | Hyperlipidemia Other and unspecified hyperlipidemia | + + | PACEMAKER, PERMANENT - [employer] 06/14/09GRANT Cardiac pacemaker in situ | + + documented in this encounter
--- OUTSIDE RECORDS SUMMARY | ~2019-11-12 | XMS | Encounter Summary ---
Demographics + + + | Address | [address] | | | [place] [address] | + + + | Home Phone [...] Providers + +------+ + | Care Track Repair Worker Name | Role | Phone | [...] | | [address] | [place] [address] | | | | | [place] | [phone] | | | | | [address] | | | | | | [phone] | | | +--------+ + + + [...] Interrogation | | | | | [place], | (Primary Dx); | | | | | [place] [address] | Presence of | | | | | [phone] | permanent cardiac | | | | [...] W | | | | | | [place], | | | | | | [place] [address] | | | | | | [phone] | | | | | | | | +--------+ + + + + documented as of this encounter Visit Diagnoses Not on filedocumented in this encounter"
--- OUTSIDE RECORDS SUMMARY | ~2019-11-12 | XMS | Encounter Summary ---
Demographics + + + | Address | [address] | | | [place] [address] | + + + | Home Phone [...] Providers + +------+ + | Care Respiratory Scientist Name | Role | Phone | + [...] + + | 01/25/ | Office | [facility] | Daljit Singletary, | Other chest pain | | 2012 | Visit | CARDIOLOGY [address] | [address] | (Primary Dx); PVC's | | | | [place], | [place], | (premature | | | | [place] [address] | [place] [address] | ventricular | | | | [phone] | [phone] | contractions) | | | | | [...] note, lorraine painting has appointment to see human service specialist for PVCs ablations consultation on January [...] tablet Take 1,000 mg by mouth Daily. [place]-3 Fatty Acids (SALMON OIL-1000 PO) CAPS, one [...] tablet Take 1,000 mg by mouth Daily. [place]-3 Fatty Acids (SALMON OIL-1000 PO) CAPS, one [...] Dx); | | | | | [place] [address] | Presence of | | | | | [phone] | permanent cardiac | | | | [...] W | | | | | | [place], | | | | | | [place] [address] | | | | | | [phone] | | | | | | | [...]
--- OUTSIDE RECORDS SUMMARY | ~2019-11-12 | XMS | Encounter Summary ---
Demographics + + + | Address | [address] | | | [place] [address] | + + + | Home Phone [...] Team Providers + +------+ + | Care Planning Management It Specialist Name | Role | Phone | + +------+ + PCP | Unavailable | + +------+ + Encounter Details +--------+ + + + + | Date | Type | Department | Care Team | Description | +--------+ + + + + | 08/17/ | Abstract | [facility] | Darion Holden DO | | | 2011 | | Anti-Coagulation | [address] | | | | | Clinic | FAMILY PRACTICE | | | | | | [place] | | | | | | [address] | | | | | | [phone] | | | | | | | [...] 2019 | Monitor | | MD [address] | Interrogation | | | | | [place], | (Primary Dx); | | | | | [place] [address] | Presence of | | | | | [phone] | permanent cardiac | | | | [...] | | | | | | [place] [address] | | | | | | [phone] | | | | | | | | +--------+ + + + + documented as of this encounter Visit Diagnoses Not on filedocumented in this encounter"
--- OUTSIDE RECORDS SUMMARY | ~2019-11-12 | XMS | Encounter Summary ---
Demographics + + + | Address | [address] | | | [place] [address] | + + + | Home Phone [...] Providers + +------+ + | Care Laboratory Courier Name | Role | Phone | + +------+ + PCP | Unavailable | + +------+ + Encounter Details +--------+ + + + + | Date | Type | Department | Care Team | Description | +--------+ + + + + | 01/20/ | [facility] | [facility] | Geri Angel, | | | 2009 | Encounter | MED CTR GENERIC OP | ANIMAL ASSISTANT [address] | | | | | CONV DEPT [address] | [address] [place] | | | | | [place], | [address] | | | | | [place] [address] | | | | | | [phone] | | | +--------+ + + + [...] Dx); | | | | | [place] [address] | Presence of | | | | | [phone] | permanent cardiac | | | | [...] | | | | | | [place] [address] | | | | | | [phone] | | | | | | | | +--------+ + + + + documented as of this encounter Visit Diagnoses Not on filedocumented in this encounter"
--- OUTSIDE RECORDS SUMMARY | ~2019-11-12 | XMS | Encounter Summary ---
Demographics + + + | Address | [address] | | | [place] [address] | + + + | Home Phone [...] Team Providers + +------+ + | Care Joint Creaser Name | Role | Phone | + [...] [address] | | | | | [place], [place] | [place], [place] | | | | | [address] | [address] | | | | | [phone] | | | +--------+ + + + [...] 2019 | Monitor | | MD [address] [place] [address] | Interrogation | | | | | [place], | (Primary Dx); | | | | | [place] [address] | Presence of | | | | | [phone] | permanent cardiac | | | | [...] | | | | | | [place] [address] | | | | | | [phone] | | | | | | | | +--------+ + + + + documented as of this encounter Visit Diagnoses Not on filedocumented in this encounter"
--- OUTSIDE RECORDS SUMMARY | ~2019-11-12 | XMS | Encounter Summary ---
Demographics + + + | Address | [address] | | | [place] [address] | + + + | Home Phone [...] Team Providers + +------+ + | Care Municipal Clerk Name | Role | Phone | [...] | (Medication ) | | | | [place], [place] | [place], [place] | | | | | [address] | [address] | | | | | [phone] | | | +--------+ + + + [...] 2019 | Monitor | | MD [address] [facility] | Interrogation | | | | | [place], | (Primary Dx); | | | | | [place] [address] | Presence of | | | | | [phone] | permanent cardiac | | | | [...] | | | | | | [place] [address] | | | | | | [phone] | | | | | | | | +--------+ + + + + documented as of this encounter Visit Diagnoses Not on filedocumented in this encounter"
--- OUTSIDE RECORDS SUMMARY | ~2019-11-12 | XMS | Encounter Summary ---
Demographics + + + | Address | [address] | | | [place] [address] | + + + | Home Phone [...] Providers + +------+ + | Care Residential Direct Support Professional Name | Role | Phone | + +------+ + | Kirk French MD | PCP | | + +------+ + Encounter Details +--------+ + + + + | Date | Type | Department | Care Team | Description | +--------+ + + + + | 12/24/ | [facility] | [facility] | Emmanuel Daniel MD | Pain of upper | | 2018 | Encounter | MED CTR MP INTRA OP | [address], [place] | abdomen (Primary | | | | [address] | [address] [place], [place] | Dx); Functional | | | | [place], [place] | [address] | diarrhea; Weight | | | | [address] | | loss | | | | [phone] | | | +--------+ + + + [...] + + + +---------+ + + | [place]-3 Fatty | CAPS, one capsule by [...] Presence of | | | | | [phone] | permanent cardiac | | | | [...] W | | | | | | [place], | | | | | | [place] [address] | | | | | | [phone] | | | | | | | [...] + | Performed at: 01 - [facility] [place] [address], | REFERENCE LAB | | [place], [place] [id number] Baffle Mounter: William Andrew MD, Phone: | ARSH [place]ST[place] | | [phone] | | + + + + + + + + | Performing | Address | City/State/Zipcode | Phone Number | | Organization | | | | + + + + + | REFERENCE LAB | [address] | [place], [place] [address] | [phone] | | [facility] - [place] | Drive [...] + | [facility] | [address] | [place] | [phone] | | [facility] | | [address] | | | - LABORATORY | | [...] [address] | [place] | [phone] | | [facility] | | [address] | | | - LABORATORY | | [...] + | [address] | [address] | [place] | [phone] | | [facility] | | [address] | | | - LABORATORY | | [...] + + | Performed at: 01 - [facility] [address], | REFERENCE LAB | | [place], [place] [id number] Baffle Mounter: William Andrew MD, Phone: | AR[place] | | [phone] | | + + + + + + + + | Performing | Address | City/State/Zipcode | Phone Number | | Organization | | | | + + + + + | REFERENCE LAB | [address] | [place] [address] | [phone] | | [facility] - [place] | Drive [...] + | [facility] | [address] | [place] | [phone] | | [facility] | | [address] | | | - LABORATORY | | [...] ST. | [address] | [place], [place] | [phone] | | [facility] | | [address] | | | - LABORATORY | | [...] [address] | [place] | [phone] | | [facility] | | [address] | | | - LABORATORY | | [...] [address] | [place] | [phone] | | [facility] | | [address] | | | - LABORATORY | | [...] [address] | [place] | [phone] | | [facility] | | [address] | | | - LABORATORY | | | | + + + + + EGD (12/24/2017 1:19 PM PST) + + | Specimen | + + | | + + + + -+ | Narrative | Performed At | + + -+ | | [facility] | | GastroenterologyPatient Name: Moe Venegas Date: 12/24/2017 | [facility] | | 1:19 PMMRN: [id number] #: [id number] of : | | | 9Admit Type: AmbulatoryAge: 57Room: [facility] 01Gender: MaleNote | | | Status: FinalizedAttending MD: Emmanuel Daniel , [facility] DOTHANrocedure: | | | Upper GI endoscopyIndications: Diarrhea, Weight | | | lossProviders: Emmanuel Daniel MD, Maria Isabel Morris RN, | | | Kim Hicks, Shallot Cleaner, Jarett | | | Sapna Barakat MD [...] the anesthesiologist and | | | the test cell technician in the endoscopy suite. Mental Status [...] PMScope Out: 1:31:13 PM | | | [facility], [address] [facility] | | | [place] [address] | | | - Discharge patient to [...] Out: 1:31:13 PM | | | [facility], [address] [facility], [place], [place] | | | [address] | | + + -+ + +---------+ [...] 12/24/2017 | [facility] | | 1:17 PMMRN: [id number] #: [id number] of : | | | 9Admit Type: AmbulatoryAge: 57Room: [facility] 01Gender: MaleNote | | | Status: FinalizedAttending MD: Emmanuel Daniel , [facility] DOTHANrocedure: | | | ColonoscopyIndications: Clinically significant diarrhea of | | | unexplained originProviders: Emmanuel Daniel MD, Maria Isabel | | | Arturo RN, Kim Hicks, Shallot Cleaner, | | | Jarett Barakat MD (Anesthesia [...] | | | the anesthesiologist and the test cell technician in the endoscopy suite. | | [...] Scope In: 1:32:55 PMScope Out: 1:48:57 PM [facility] | | | [facility], [address] [place] [address] | | | [phone] | | | - Await pathology results. [...] |Scope Out: 1:48:57 PM | | | [facility], [address] [place] [address] | | | [address] | | + + -+ + +---------+ [...] | colonic mucosa with focal adenomatous change. CLR:[facility]:C2NR | | | GROSS DESCRIPTION: Received [...] | | cm, submitted, all in (D1). ka:CLR:[facility] ADDITIONAL NOTES: | | | Immunohistochemical studies were performed on this case with the | | | appropriate positive controls that react as expected. This test was | | | developed and its performance characteristics determined by [facility] | | | [facility]. It has not been cleared or approved by the U.S. Food | | | and Drug Administration. The FDA has determined that such clearance | | | or approval is not necessary. This test is used for clinical | | | purposes. It should not be regarded as investigational or for | | | research. [facility] is certified under the Clinical | | | Laboratory Improvement Amendments of 1988 (CLIA) as qualified to | | | perform high complexity clinical laboratory testing. This assay | | | has not been validated for specimens that have been decalcified. | | | PERFORMING LABORATORY: Tissue processing and slide preparation were | | | performed by [facility], [facility] ., [facility] | | | [place] [address] (Automotive Refinisher: Evan Frausto M.D. CLIA#: | | | [id number]). Professional interpretation was performed by [facility] | | | [facility], [facility] [address], [place] [address] | | | (Automotive Refinisher: Evan Frausto M.D.; CLIA#: [id number]). | | | Diagnostician: Rafael Bales MD [...]
--- OUTSIDE RECORDS SUMMARY | ~2019-11-12 | XMS | Encounter Summary ---
Demographics + + + | Address | [address] | | | [place] [address] | + + + | Home Phone [...] Team Providers + +------+ + | Care Heat Treat Inspector Name | Role | Phone | + +------+ + PCP | Unavailable | + +------+ + Encounter Details +--------+ + + + + | Date | Type | Department | Care Team | Description | +--------+ + + + + | 04/23/ | Hospital | [facility] | | | | 2007 - | Encounter | MED CTR MED ONC | | | | | | [address] | | | | 04/24/ | | [place] [address] | | | | 2007 | | [phone] | | | +--------+ + + + [...] Dx); | | | | | [place] [address] | Presence of | | | | | [phone] | permanent cardiac | | | | [...] W | | | | | | [place], | | | | | | [place] [address] | | | | | | [phone] | | | | | | | | +--------+ + + + + documented as of this encounter Visit Diagnoses Not on filedocumented in this encounter"
--- OUTSIDE RECORDS SUMMARY | ~2019-11-12 | XMS | Encounter Summary ---
Demographics + + + | Address | [address] | | | [place] [address] | + + + | Home Phone [...] Team Providers + +------+ + | Care Policy And Planning Manager Name | Role | Phone [...] | 10/09/ | Telephone | [facility] | Michael Amanda, | Other | | 2012 | | MEDICINE [place] | DO [address] | | | | | [address] | [place] | | | | | [place] | [address] | | | | | [address] | | | | | | [phone] | | | +--------+ + + + [...] Interrogation | | | | | [place], | (Primary Dx); | | | | | [place] [address] | Presence of | | | | | [phone] | permanent cardiac | | | | [...] W | | | | | | [place], | | | | | | [place] [address] | | | | | | [phone] | | | | | | | | +--------+ + + + + documented as of this encounter Visit Diagnoses Not on filedocumented in this encounter"
--- OUTSIDE RECORDS SUMMARY | ~2019-11-12 | XMS | Encounter Summary ---
Demographics + + + | Address | [address] | | | [place] [address] | + + + | Home Phone [...] Team Providers + +------+ + | Care Forecast Analyst Name | Role | Phone | [...] CARDIOLOGY [address] | MD [address] [place] | reprogramming/check | | | | [place], | [place], | DO NOT DELETE | | | | [place] [address] | [place] [address] | (Primary Dx); | | | | [phone] | [phone] | Pacemaker - | | | | [...] Dx); | | | | | [place] [address] | Presence of | | | | | [phone] | permanent cardiac | | | | [...] W | | | | | | [place], | | | | | | [place] [address] | | | | | | [phone] | | | | | | | [...] by Kailey Pruitt RN | | | |Underlying rhythm: sinus [...]
--- OUTSIDE RECORDS SUMMARY | ~2019-11-12 | XMS | Encounter Summary ---
Demographics + + + | Address | [address] | | | [place] [address] | + + + | Home Phone [...] Team Providers + +------+ + | Care Saw Straightener Name | Role | Phone | + [...] + | 12/23/ | Telephone | [facility] | Daljit Singletary, | Other (question | | 2015 | | CARDIOLOGY [address] | [address] [place] | about diet | | | | [place], | [place], | medication) | | | | [place] [address] | [place] [address] | | | | | [phone] | [phone] | | | | | | | [...] Dx); | | | | | [place] [address] | Presence of | | | | | [phone] | permanent cardiac | | | | [...] | | | | | | [place] [address] | | | | | | [phone] | | | | | | | | +--------+ + + + + documented as of this encounter Visit Diagnoses Not on filedocumented in this encounter"
--- OUTSIDE RECORDS SUMMARY | ~2019-11-12 | XMS | Encounter Summary ---
Demographics + + + | Address | [address] | | | [place] [address] | + + + | Home Phone [...] Team Providers + +------+ + | Care Admitting Interviewer Name | Role | Phone | + [...] + | 11/02/ | Telephone | [facility] | Daljit Singletary, | Other | | 2015 | | CARDIOLOGY [address] | MD [address] [place] | | | | | [place], | [place], | | | | | [place] [address] | [place] [address] | | | | | [phone] | [phone] | | | | | | | [...] 2019 | Monitor | | MD [address] [place] [address] | Interrogation | | | | | [place], | (Primary Dx); | | | | | [place] [address] | Presence of | | | | | [phone] | permanent cardiac | | | | [...] W | | | | | | [place], | | | | | | [place] [address] | | | | | | [phone] | | | | | | | | +--------+ + + + + documented as of this encounter Visit Diagnoses Not on filedocumented in this encounter"
--- OUTSIDE RECORDS SUMMARY | ~2019-11-12 | XMS | Encounter Summary ---
Demographics + + + | Address | [address] | | | [place] [address] | + + + | Home Phone [...] Providers + +------+ + | Care Sawmill Relief Worker Name | Role | Phone | [...] + | 07/01/ | Telephone | [facility] | Daljit Singletary, | Other (EKG) | | 2017 | | CARDIOLOGY [address] | MD [address] | | | | | [place], | [place], | | | | | [place] [address] | [place] [address] | | | | | [phone] | [phone] | | | | | | | [...] Dx); | | | | | [place] [address] | Presence of | | | | | [phone] | permanent cardiac | | | | [...] | | | | | | [place] [address] | | | | | | [phone] | | | | | | | | +--------+ + + + + documented as of this encounter Visit Diagnoses Not on filedocumented in this encounter"
--- OUTSIDE RECORDS SUMMARY | ~2019-11-12 | XMS | Encounter Summary ---
Demographics + + + | Address | [address] | | | [place] [address] | + + + | Home Phone [...] Providers + +------+ + | Care Manager Strategic Development Name | Role | Phone | + +------+ + PCP | Unavailable | + +------+ + Encounter Details +--------+ + + + + | Date | Type | Department | Care Team | Description | +--------+ + + + + | 09/29/ | Hospital | [facility] | | | | 1995 | Encounter | MED CTR EMERGENCY | | | | | | [place] [address] | | | | | | [place] | | | | | | [address] | | | | | | [phone] | | | +--------+ + + + [...] Dx); | | | | | [place] [address] | Presence of | | | | | [phone] | permanent cardiac | | | | [...] W | | | | | | [place], | | | | | | [place] [address] | | | | | | [phone] | | | | | | | | +--------+ + + + + documented as of this encounter Visit Diagnoses Not on filedocumented in this encounter"
--- OUTSIDE RECORDS SUMMARY | ~2019-11-12 | XMS | Encounter Summary ---
Demographics + + + | Address | [address] | | | [place] [address] | + + + | Home Phone [...] Team Providers + +------+ + | Care Payment Analyst Name | Role | Phone | [...] + + | 05/14/ | [facility] | [facility] | [place], | Coronary artery | | 2013 | Visit | CARDIOLOGY [address] | PARISA [place] [address] | disease (Primary | | | | [place], | [place], | Dx); Hypertension; | | | | [place] [address] | [place] [address] | Hyperlipidemia; | | | | [phone] | [phone] | Syncope; Other chest | | | [...] needed for Chest pain. 25 tablet 12 [place]-3 Fatty Acids (SALMON OIL-1000 PO) CAPS, one capsule by mouth daily twice daily ONE TOUCH DELICA LANCETS [facility] Check glucose as needed for [...] attenuation cannot completely be ruled out. [facility] 12/25/13, shows noncritical coronary artery disease, [...] exercising. He is in class II of [place] 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 There are no [...] to go back in 3 days to [place] for an attempt of ablation under general [...] palpitations.. He is in class II of [place] 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 There are no [...] bring in his blood pressure logs from pending sale to [facility] 5. Lightheadedness and dizziness/ presyncope: A. Episode [...] made to ensure accuracy; however, inadvertent computerized facilitator errors may be pre sent. Electronically signed by: PARISA Russell 05/14/2014 7:40 documented in this encounter Plan of Treatment +--------+ + + + + | Date | Type | Specialty | Care Team | Description | +--------+ + + + + | 11/20/ | Implant | Cardiology | Daljit Singletary, | Remote Device | | 2018 | Monitor | | [address] [place] | Interrogation | | | | | [place], | (Primary Dx); | | | | | [place] [address] | Presence of | | | | | [phone] | permanent cardiac | | | | [...] W | | | | | | [place], | | | | | | [place] [address] | | | | | | [phone] | | | | | | | [...] of unspecified type of | | vessel, port graham or graft | + + | Hypertension Unspecified essential hypertension | + + | Hyperlipidemia Other and unspecified hyperlipidemia | + + | Syncope Syncope and collapse | + + | Other chest pain | + + | Chest pain Chest pain, unspecified | + + documented in this encounter
--- OUTSIDE RECORDS SUMMARY | ~2019-11-12 | XMS | Encounter Summary ---
Demographics + + + | Address | [address] | | | [place] [address] | + + + | Home Phone [...] Providers + +------+ + | Care Personal Trainer Name | Role | Phone | + +------+ + PCP | Unavailable | + +------+ + Encounter Details +--------+ + + + + | Date | Type | Department | Care Team | Description | +--------+ + + + + | 06/12/ | [facility] | [facility] | Hunter Antunez, | | | 2007 - | Encounter | MED CTR ICU [address] | MD [address] | | | | | [place], | [place] | | | 06/15/ | | [place] [address] | [address] | | | 2007 | | [phone] | | | +--------+ + + + [...] Interrogation | | | | | [place], | (Primary Dx); | | | | | [place] [address] | Presence of | | | | | [phone] | permanent cardiac | | | | [...] W | | | | | | [place], | | | | | | [place] [address] | | | | | | [phone] | | | | | | | | +--------+ + + + + documented as of this encounter Visit Diagnoses Not on filedocumented in this encounter"
--- OUTSIDE RECORDS SUMMARY | ~2019-11-12 | XMS | Encounter Summary ---
Demographics + + + | Address | [address] | | | [place] [address] | + + + | Home Phone [...] Providers + +------+ + | Care Claim Technician Name | Role | Phone | + +------+ + PCP | Unavailable | + +------+ + Encounter Details +--------+ + + + + | Date | Type | Department | Care Team | Description | +--------+ + + + + | 06/17/ | Hospital | [facility] | | | | 2008 | Encounter | MED CTR EMERGENCY | | | | | | [place] [address] | | | | | | [place] | | | | | | [address] | | | | | | [phone] | | | +--------+ + + + [...] Dx); | | | | | [place] [address] | Presence of | | | | | [phone] | permanent cardiac | | | | [...] | | | | | | [place], | | | | | | [place] [address] | | | | | | [phone] | | | | | | | | +--------+ + + + + documented as of this encounter Visit Diagnoses Not on filedocumented in this encounter"
--- OUTSIDE RECORDS SUMMARY | ~2019-11-12 | XMS | Encounter Summary ---
Demographics + + + | Address | [address] | | | [place] [address] | + + + | Home Phone [...] Team Providers + +------+ + | Care Architectural Wood Model Maker Name | Role | Phone | + +------+ + | Kirk French MD | PCP | | + +------+ + Encounter Details +--------+ + + + + | Date | Type | Department | Care Team | Description | +--------+ + + + + | 03/15/ | Hospital | [facility] | Conversion | | | 2017 | Encounter | [facility] | Transaction, | | | | | [address] | Provider Unknown | | | | | [address] [place] | [phone] | | | | | [address] | | | | | | [phone] | Kirk French | | | | | | MD Bre[address] | | | | | | [address] [place], | | | | | | [place] [address] | | | | | | [phone] | | | | | | | [...] + + + +---------+ + + | [place]-3 Fatty | CAPS, one capsule by | [...] Dx); | | | | | [place] [address] | Presence of | | | | | [phone] | permanent cardiac | | | | | | pacemaker; | | | | | | Sinoatrial node | | | | | | dysfunction (HCC) | | | | | | with symptomatic | | | | | | bradycardia | +--------+ + + + + | 01/01/ | Office | Cardiology | Silvia, | | | 2020 | Visit | | PAIRSA [address] | | | | | | [place], | | | | | | [place] [address] | | | | | | [phone] | | | | | | | | +--------+ + + + + documented as of this encounter Visit Diagnoses Not on filedocumented in this encounter"
--- OUTSIDE RECORDS SUMMARY | ~2019-11-12 | XMS | Encounter Summary ---
Demographics + + + | Address | [address] | | | [place] [address] | + + + | Home Phone [...] Team Providers + +------+ + | Care Waiter/Waitress Formal Name | Role | Phone | + [...] + + | 08/31/ | Refill | [facility] | Kirk French | Medication Refill | | 2018 | | [facility] | MD [address] | | | | | PRIMARY CARE [address] | [address] | | | | | [address] | [place] [address] | | | | | [place] | [phone] | | | | | [address] | | | | | | [phone] | | | +--------+--------+ + + + [...] | | | | | [address] [place], | (Primary Dx); | | | | | [place] [address] | Presence of | | | | | [phone] | permanent cardiac | | | | [...] | | | | | | [place] [address] | | | | | | [phone] | | | | | | | | +--------+ + + + + documented as of this encounter Visit Diagnoses Not on filedocumented in this encounter"
--- OUTSIDE RECORDS SUMMARY | ~2019-11-12 | XMS | Encounter Summary ---
Demographics + + + | Address | [address] | | | [place] [address] | + + + | Home Phone [...] Team Providers + +------+ + | Care Yacht Rigger Name | Role | Phone | [...] | CARDIOLOGY [address] | [address] | (Primary Dx); | | | | [place], | [place], | Tachycardia; | | | | [place] [address] | [place] [address] | Coronary artery | | | | [phone] | [phone] | disease involving | | | | | | [place] coronary | | | | | | artery of [place] | | | | | | heart [...] Dx); | | | | | [place] [address] | Presence of | | | | | [phone] | permanent cardiac | | | | [...] | | | | | | [place] [address] | | | | | | [phone] | | | | | | | [...] involving | | | | | | [place] coronary | | | | | | artery of [place] | | | | | | heart [...] DALJIT | | | | | | ([id number]) on 06/29/2018 | | | | | [...] + + | Coronary artery disease involving k[place] coronary artery of [place] heart without | | angina pectoris | + + | Hypertension, unspecified type | + + documented in this encounter"
--- OUTSIDE RECORDS SUMMARY | ~2019-11-12 | XMS | Encounter Summary ---
Demographics + + + | Address | [address] | | | [place] [address] | + + + | Home Phone [...] Team Providers + +------+ + | Care Lithoduplicator Operator Name | Role | Phone | [...] 2019 | | GASTROENTEROLOGY | [address], [place] | Syndrome | | | | [address] [place] | [address] [place], [place] | | | | | [address] [place], [place] | [address] | | | | | [address] | | | | | | [phone] | | | +--------+ + + + [...] Interrogation | | | | | [place], | (Primary Dx); | | | | | [place] [address] | Presence of | | | | | [phone] | permanent cardiac | | | | [...] | | | | | | [place] [address] | | | | | | [phone] | | | | | | | | +--------+ + + + + documented as of this encounter Visit Diagnoses Not on filedocumented in this encounter"
--- OUTSIDE RECORDS SUMMARY | ~2019-11-12 | XMS | Encounter Summary ---
Demographics + + + | Address | [address] | | | [place] [address] | + + + | Home Phone [...] Team Providers + +------+ + | Care Recording Engineer Name | Role | Phone | [...] | | CARDIOLOGY [address] | Janeen, TEST ANALYST [address] | Clearance) | | | | [place], | [place], | | | | | [place] [address] | [place] [address] | | | | | [phone] | [phone] | | | | | | | [...] Dx); | | | | | [place] [address] | Presence of | | | | | [phone] | permanent cardiac | | | | [...] | | | | | | [place] [address] | | | | | | [phone] | | | | | | | | +--------+ + + + + documented as of this encounter Visit Diagnoses Not on filedocumented in this encounter"
--- OUTSIDE RECORDS SUMMARY | ~2019-11-12 | XMS | Encounter Summary ---
Demographics + + + | Address | [address] | | | [place] [address] | + + + | Home Phone [...] Team Providers + +------+ + | Care Police Liaison Name | Role | Phone | [...] 2019 | | GASTROENTEROLOGY | [address], [place] | | | | | [address] [place] | [address] [place], [place] | | | | | [address] [place], [place] | [address] | | | | | [address] | | | | | | [phone] | | | +--------+ + + + [...] Dx); | | | | | [place] [address] | Presence of | | | | | [phone] | permanent cardiac | | | | [...] W | | | | | | [place], | | | | | | [place] [address] | | | | | | [phone] | | | | | | | | +--------+ + + + + documented as of this encounter Visit Diagnoses Not on filedocumented in this encounter"
--- OUTSIDE RECORDS SUMMARY | ~2019-11-12 | XMS | Encounter Summary ---
Demographics + + + | Address | [address] | | | [place] [address] | + + + | Home Phone [...] Team Providers + +------+ + | Care Recycling Sorter Name | Role | Phone | [...] [address] | | | | | | [place], [place] | (Fax) | | | | | [address] | | | | | | [phone] | | | +--------+ + + + [...] 2019 | Monitor | | [address] | Interrogation | | | | | [place], | (Primary Dx); | | | | | [place] [address] | Presence of | | | | | [phone] | permanent cardiac | | | | [...] | | | | | | [place] [address] | | | | | | [phone] | | | | | | | | +--------+ + + + + documented as of this encounter Visit Diagnoses Not on filedocumented in this encounter"
--- OUTSIDE RECORDS SUMMARY | ~2019-11-12 | XMS | Encounter Summary ---
Demographics + + + | Address | [address] | | | [place] [address] | + + + | Home Phone [...] Team Providers + +------+ + | Care Insole Tack Puller Hand Name | Role | Phone | [...] [address] | | | | | [place], | [place], | | | | | [place] [address] | [place] [address] | | | | | [phone] | | | | | | | [...] | Monitor | | MD [address] [place] | Interrogation | | | | | [place], | (Primary Dx); | | | | | [place] [address] | Presence of | | | | | [phone] | permanent cardiac | | | | [...] | | | | | | [place] [address] | | | | | | [phone] | | | | | | | | +--------+ + + + + documented as of this encounter Visit Diagnoses Not on filedocumented in this encounter"
--- OUTSIDE RECORDS SUMMARY | ~2019-11-12 | XMS | Encounter Summary ---
Demographics + + + | Address | [address] | | | [place] [address] | + + + | Home Phone [...] Providers + +------+ + | Care Product Tester Name | Role | Phone | [...] [address] | | | | | [place], | [place], | | | | | [place] [address] | [place] [address] | | | | | [phone] | | | | | | | [...] Dx); | | | | | [place] [address] | Presence of | | | | | [phone] | permanent cardiac | | | | [...] W | | | | | | [place], | | | | | | [place] [address] | | | | | | [phone] | | | | | | | | +--------+ + + + + documented as of this encounter Visit Diagnoses Not on filedocumented in this encounter"
--- OUTSIDE RECORDS SUMMARY | ~2019-11-12 | XMS | Encounter Summary ---
Demographics + + + | Address | [address] | | | [place] [address] | + + + | Home Phone [...] Providers + +------+ + | Care Environmental Aid Name | Role | Phone | [...] Refill | | 2011 | | MEDICINE [facility] | DO [address] | | | | | [address] | [place] | | | | | [place] | [address] | | | | | [address] | | | | | | [phone] | | | +--------+--------+ + + + [...] | Monitor | | MD [address] | Interrogation | | | | | [place], | (Primary Dx); | | | | | [place] [address] | Presence of | | | | | [phone] | permanent cardiac | | | | [...] W | | | | | | [place], | | | | | | [place] [address] | | | | | | [phone] | | | | | | | | +--------+ + + + + documented as of this encounter Visit Diagnoses + + | Diagnosis | + + | Hypoglycemia - Primary Hypoglycemia, unspecified | + + documented in this encounter"
--- OUTSIDE RECORDS SUMMARY | ~2019-11-12 | XMS | Encounter Summary ---
Demographics + + + | Address | [address] | | | [place] [address] | + + + | Home Phone [...] Team Providers + +------+ + | Care Roasterman Name | Role | Phone | + +------+ + PCP | Unavailable | + +------+ + Encounter Details +--------+ + + + + | Date | Type | Department | Care Team | Description | +--------+ + + + + | 07/04/ | Hospital | [facility] | Conversion | | | 2001 | Encounter | CONVERSION | Transaction, | | | | | DEPARTMENT [address] | Provider Unknown | | | | | [address] | | | | | | [place], [place] | (Fax) | | | | | [address] | | | | | | [phone] | | | +--------+ + + + [...] 2019 | Monitor | | [address] | Interrogation | | | | | [place], | (Primary Dx); | | | | | [place] [address] | Presence of | | | | | [phone] | permanent cardiac | | | | [...] | | | | | | [place] [address] | | | | | | [phone] | | | | | | | | +--------+ + + + + documented as of this encounter Visit Diagnoses Not on filedocumented in this encounter"
--- OUTSIDE RECORDS SUMMARY | ~2019-11-12 | XMS | Encounter Summary ---
Demographics + + + | Address | [address] | | | [place] [address] | + + + | Home Phone [...] Providers + +------+ + | Care Computer Systems Integrator Name | Role | Phone | + [...] | 02/15/ | Office | [facility] | Silvia, | Symptomatic PVCs | | 2012 | Visit | CARDIOLOGY [address] | PARISA Vernon [address] | (Primary Dx); | | | | [place], | [place], | Bradycardia; HTN | | | | [place] [address] | [place] [address] | (hypertension) | | | | [phone] | [phone] | | | | | | | [...] Sanchez is a 53 y.o. male. PCP: Mihcael BOO Moe Sanchez is a 53 y.o. 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 He is being seen today for follow up on palpitatio ns. He was last seen 01/25/2013 at which time patient was going to [place] for correctional program specialist co nsult and PVC ablation. Since [...] tablet Take 1,000 mg by mouth Daily. [place]-3 Fatty Acids (SALMON OIL-1000 PO) CAPS, one [...] ventricular arrhythmia performed by Dr. Gambino at [facility] on 01/30/2013. Patient had spontaneous [...] to go back in 3 days to [place] for an attempt of ablation under general [...] He is in a class II of [place] 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 There is no [...] been encouraged to keep his appointment with correctional program specialist this coming y to attempt ablation therapy. 4. Follow up appointment in 4-6 weeks. I, PARISA Russell, saw this patient under the direct supervision of Daljit Singletary MD Portions of this report were transcribed using voice recognition software. Every effort wa s made to ensure accuracy; however, inadvertent computerized ropeman errors may be pre sent. documented in this encounter Plan of Treatment +--------+ + + + + | Date | Type | Specialty | Care Team | Description | +--------+ + + + + | 11/20/ | Implant | Cardiology | Daljit Singletary, | Remote Device | | 2019 | Monitor | | [address] [place] | Interrogation | | | | | [place], | (Primary Dx); | | | | | [place] [address] | Presence of | | | | | [phone] | permanent cardiac | | | | [...] | | | | | | [place] [address] | | | | | | [phone] | | | | | | | [...]
--- OUTSIDE RECORDS SUMMARY | ~2019-11-12 | XMS | Encounter Summary ---
Demographics + + + | Address | [address] | | | [place] [address] | + + + | Home Phone [...] Team Providers + +------+ + | Care Mathematical Engineer Name | Role | Phone | [...] + | 06/02/ | Telephone | [facility] | Daljit Singletary, | Other (symptoms) | | 2019 | | CARDIOLOGY [address] | MD [address] [place] | | | | | [place], | [place], | | | | | [place] [address] | [place] [address] | | | | | [phone] | [phone] | | | | | | | [...] Dx); | | | | | [place] [address] | Presence of | | | | | [phone] | permanent cardiac | | | | [...] | | | | | | [place] [address] | | | | | | [phone] | | | | | | | | +--------+ + + + + documented as of this encounter Visit Diagnoses Not on filedocumented in this encounter"
--- OUTSIDE RECORDS SUMMARY | ~2019-11-12 | XMS | Encounter Summary ---
Demographics + + + | Address | [address] | | | [place] [address] | + + + | Home Phone [...] Providers + +------+ + | Care Behavioral Medical Director Name | Role | Phone [...] Provider Unknown | | | | | [place], [place] | [phone] | | | | | [address] | | | | | | [phone] | | | +--------+ + + + [...] + + +---------+ + + | [place]-3 Fatty | CAPS, one capsule by | [...] | | | | | | | #[id number], exp 07/2016 | | | | | [...] | Interrogation | | | | | [facility] | (Primary Dx); | | | | | [place] [address] | Presence of | | | | | [phone] | permanent cardiac | | | | [...] W | | | | | | [place], | | | | | | [place] [address] | | | | | | [phone] | | | | | | | [...]
--- OUTSIDE RECORDS SUMMARY | ~2019-11-12 | XMS | Encounter Summary ---
Demographics + + + | Address | [address] | | | [place] [address] | + + + | Home Phone [...] Providers + +------+ + | Care Special Diet Cook Name | Role | Phone | [...] + + | 07/13/ | Telephone | [facility] | Kirk French | Referral Question | | 2019 | | [facility] | MD [address] | | | | | PRIMARY CARE [address] | [address] | | | | | [address] | [place] [address] | | | | | [place], [place] | [phone] | | | | | [address] | | | | | | [phone] | | | +--------+ + + + [...] | Interrogation | | | | | [facility] | (Primary Dx); | | | | | [place] [address] | Presence of | | | | | [phone] | permanent cardiac | | | | [...] | | | | | | [place] [address] | | | | | | [phone] | | | | | | | | +--------+ + + + + documented as of this encounter Visit Diagnoses Not on filedocumented in this encounter"
--- OUTSIDE RECORDS SUMMARY | ~2019-11-12 | XMS | Encounter Summary ---
Demographics + + + | Address | [address] | | | [place] [address] | + + + | Home Phone [...] Team Providers + +------+ + | Care Whizzer Name | Role | Phone | + +------+ + | Michael Amanda DO | PCP | | + +------+ + Encounter Details +--------+ + + + + | Date | Type | Department | Care Team | Description | +--------+ + + + + | 05/11/ | Hospital | [facility] | Conversion | Lumbago; | | 2013 | Encounter | [facility] | Transaction, | Postlaminectomy | | | | CLINICAL DECISION | Provider Unknown | syndrome, cervical | | | | [address] | | region; Cervicalgia | | | | [place], [place] | (Fax) | | | | | [address] | Cesar, | | | | | [phone] | MD Gamaliel | | +--------+ + [...] + + + +---------+ + + | [place]-3 Fatty | CAPS, one capsule by | [...] Note by Meliza Macario RN at 05/11/14 1504 Author: Meliza Macario RN Service: (none) Author Type: Registered Nurse Filed: 05/11/14 1506 Date of Service: 05/11/14 150 Status: Signed Exercise Science Instructor: Meliza Macario RN (Registered Nurse) Pt discharged home, discharge instructions were reviewed, prescriptions provided, and quest ions answered. IV discontinued- gauze and tape applied to site. onver fatemeh Transaction, Provider Unknown - 05/11/2014 2:23 PM PDT Nurse Progress Note by Heike Mckeon RN at 05/11/14 1421 Author: Heike Mckeon RN Service: (none) Author Type: Registered Nurse Filed: 05/11/14 1424 Date of Service: 05/11/14 142 Status: Signed Exercise Science Instructor: Heike Mckeon RN (Registered Nurse) Called doctor [...] Dx); | | | | | [place] [address] | Presence of | | | | | [phone] | permanent cardiac | | | | [...] | | | | | | [place] [address] | | | | | | [phone] | | | | | | | [...] | | | intrathecal use. See the environmental services floor tech examination for details of the | | | injection. Bone algorithm noncontrast technique with reformatted | | | sagittal and coronal images. Prior study for review : CT discogram | | | from 2004 was used to orient this examination given the transitional | | | anatomy of the lumbosacral junction FINDINGS: Furniture Rental Consultant is notable | | | for a [...] for intrathecal use. See | | the environmental services floor tech examination for details of the injection. Bone algorithm noncontrast | | technique with reformatted sagittal and coronal images. Prior study for review : CT | | discogram from 2004 was used to orient this examination given the transitional anatomy | | of the lumbosacral junction FINDINGS: Furniture Rental Consultant is notable for a pacing system. Anterior [...]
--- OUTSIDE RECORDS SUMMARY | ~2019-11-12 | XMS | Encounter Summary ---
Demographics + + + | Address | [address] | | | [place] [address] | + + + | Home Phone [...] Providers + +------+ + | Care Financial Sales Assistant Name | Role | Phone [...] Provider Unknown | | | | | [place], [place] | [phone] | | | | | [address] | | | | | | [phone] | | | +--------+ + + + [...] + + + +---------+ + + | [place]-3 Fatty | CAPS, one capsule by | [...] | | | | | | | #[id number], exp 07/2016 | | | | | [...] | Interrogation | | | | | [facility] | (Primary Dx); | | | | | [place] [address] | Presence of | | | | | [phone] | permanent cardiac | | | | [...] | | | | | | [place] [address] | | | | | | [phone] | | | | | | | [...]
--- OUTSIDE RECORDS SUMMARY | ~2019-11-12 | XMS | Encounter Summary ---
Demographics + + + | Address | [address] [place] [address] | | | [place] [address] | + + + | Home Phone [...] [place] | | | | | [address] | | + + + + + Care Team Providers + +------+ + | Care Cheese Blender Name | Role | Phone | [...] | | Bradycardia | | | | [place], [place] | | | | | | [address] | | | | | | [phone] | | | +--------+------+ + + + [...] Way Lab) | [facility] | | [facility] [place] [place] [address] | REGIONAL | | [place] [address] | LABORATORY | + + + + + + + + | Performing | Address | City/State/Zipcode | Phone Number | | Organization | | | | + + + + + | [facility] | [address] | [place] [address] | | | LABORATORY | | | [...] ([address] [facility]) | | | [facility] [address] | | | [place] [address] | | + + + + + + + + | Performing | Address | City/State/Zipcode | Phone Number | | Organization | | | | + + + + + | [facility] | [address] | [place] [address] | | | LABORATORY | | | [...] DEPARTMENT OF | [address] | [place] [address] | | | PATHOLOGY | [address] | | | + + + + + documented in this encounter Visit Diagnoses + + | Diagnosis | + + | Chest pain Chest pain, unspecified | + + | Bradycardia Other specified cardiac dysrhythmias | + + documented in this encounter"
--- OUTSIDE RECORDS SUMMARY | ~2019-11-12 | XMS | Encounter Summary ---
Demographics + + + | Address | [address] | | | [place] [address] | + + + | Home Phone [...] | Author | [facility] | | | [...] Providers + +------+ + | Care Media Production Operator Name | Role | Phone | [...] [place] | | | | | | [address] | | | | | | [phone] | | | | | | | [...] 2019 | Monitor | | MD [address] | Interrogation | | | | | [place], | (Primary Dx); | | | | | [place] [address] | Presence of | | | | | [phone] | permanent cardiac | | | | [...] | | | | | | [place] [address] | | | | | | [phone] | | | | | | | | +--------+ + + + + documented as of this encounter Visit Diagnoses Not on filedocumented in this encounter"
--- OUTSIDE RECORDS SUMMARY | ~2019-11-12 | XMS | Encounter Summary ---
Demographics + + + | Address | [address] | | | [place] [address] | + + + | Home Phone [...] Providers + +------+ + | Care Pharmaceutical Representative Name | Role | Phone | [...] | | CARDIOLOGY [address] | Janeen, CURING PICKLING PACKER [address] | Clearance) | | | | [place], | [place], | | | | | [place] [address] | [place] [address] | | | | | [phone] | [phone] | | | | | | | [...] Interrogation | | | | | [place], | (Primary Dx); | | | | | [place] [address] | Presence of | | | | | [phone] | permanent cardiac | | | | [...] | | | | | | [place] [address] | | | | | | [phone] | | | | | | | | +--------+ + + + + documented as of this encounter Visit Diagnoses Not on filedocumented in this encounter"
--- OUTSIDE RECORDS SUMMARY | ~2019-11-12 | XMS | Encounter Summary ---
Demographics + + + | Address | [address] | | | [place] [address] | + + + | Home Phone [...] Team Providers + +------+ + | Care Sanitation Manager Name | Role | Phone | + +------+ + | Michael Amanda DO | PCP | | + +------+ + Reason for Visit +--------+ + | Reason | Comments | +--------+ + | Other | patient has changed his mind | +--------+ + Encounter Details +--------+ + + + + | Date | Type | Department | Care Team | Description | +--------+ + + + + | 10/25/ | Tele[facility] | [facility] | Silvia, | Other (patient has | | 2013 | | CARDIOLOGY [address] | Janeen FUEL TESTING TECHNICIAN [address] | changed his mind) | | | | [place], | [place], | | | | | [place] [address] | [place] [address] | | | | | [phone] | | | | | | | [...] Dx); | | | | | [place] [address] | Presence of | | | | | [phone] | permanent cardiac | | | | [...] | | | | | | [place] [address] | | | | | | [phone] | | | | | | | | +--------+ + + + + documented as of this encounter Visit Diagnoses Not on filedocumented in this encounter"
--- OUTSIDE RECORDS SUMMARY | ~2019-11-12 | XMS | Encounter Summary ---
Demographics + + + | Address | [address] | | | [place] [address] | + + + | Home Phone [...] Team Providers + +------+ + | Care Pbx Operator Name | Role | Phone | [...] [address] | | | | | [address] | [place] | | | | | [phone] | [address] | | | | | | [phone] | | | | | | | [...] 2019 | Monitor | | MD [address] | Interrogation | | | | | [place], | (Primary Dx); | | | | | [place] [address] | Presence of | | | | | [phone] | permanent cardiac | | | | [...] W | | | | | | [place], | | | | | | [place] [address] | | | | | | [phone] | | | | | | | [...]
--- OUTSIDE RECORDS SUMMARY | ~2019-11-12 | XMS | Encounter Summary ---
Demographics + + + | Address | [address] | | | [place] [address] | + + + | Home Phone [...] Providers + +------+ + | Care Business Analytics Director Name | Role | Phone | [...] | | | | Sinoatrial | Jose, WELDER AND FITTER | [address] | | | | | node | [address] | [place], | | | | | dysfunction | [place] | [place] | | | | | (HCC) | [place], [place] | [address] | | | | | Coronary | [address] | Phone: | | | | | artery | Phone: | [phone] | | | | | disease | [phone] | Fax: | | | | | involving | Fax: | [phone] | | | | | [place] | [phone] | | | | | | coronary | | | | | | | artery of | | | | | | | [place] heart | | | | | | [...] | | | | | | Complete [place] | | | | | | | ECHO HEART | | | | | | | XTHORACIC,[place] | | | | | | | MPLETE W | | | | | | | DOPPLER AR | | | | | | | [...] | | | | Sinoatrial | Jose, WELDER AND FITTER | [address] | | | | | node | [address] | [place], | | | | | dysfunction | [place] | [place] | | | | | ([facility]) | [place], [place] | [address] | | | | | Coronary | [address] | Phone: | | | | | artery | Phone: | [phone] | | | | | disease | [phone] | Fax: | | | | | involving | Fax: | [phone] | | | | | [place] | [phone] | | | | | | coronary | | | | | | | artery of | | | | | | | [place] heart | | | | | | [...] | | | | | | Complete [place] | | | | | | | ECHO HEART | | | | | | | XTHORACIC,CO | | | | | | | MPLETE W | | | | | | | DOPPLER AR | | | | | | | [...] + + + + | 06/16/ | [facility] | [facility] | Jose Angel, | Sinoatrial node | | 2016 | Encounter | MED CTR ECHO [address] | WELDER AND FITTER [address] | dysfunction (HCC) | | | | [address] [place] | [address] [place], [place] | with symptomatic | | | | [place] [address] | [address] | bradycardia; | | | | [phone] | | Coronary artery | | | | | Juvenal Blake, | disease involving | | | | | Technologist | [place] coronary | | | | | | artery of [place] | | | | | | heart [...] + + + +---------+ + + | Cotton-3 Fatty | CAPS, one capsule by | [...] Interrogation | | | | | [facility] [place], | (Primary Dx); | | | | | [place] [address] | Presence of | | | | | [phone] | permanent cardiac | | | | [...] | | | | | | [address] [place], | | | | | | [place] [address] | | | | | | [phone] | | | | | | | [...] involving | | | | | | [place] coronary | | | | | | artery of [place] | | | | | | heart [...] Patient | [facility] | | [id number] Date of Study 06/16/2016 Number | - IMAGING | | Visit Number [id number] | | | Referring Physician JOSE ARMANDO JOSE Number Date of 1960 | | | Library Director LUIS FERNANDO DUARTE Age | | | 56 year(s) Interpreting | | | GURJIT TROY | | | Target Trimmer SYDNI SINGLETARY, | | | Gender | | | Male Nurse Procedure Type of Study TTE | | | procedure: ECHO Complete. Procedure dateDate: 06/16/2016Start: 10:55 | | | AM Technical Quality: Adequate visualizationStudy Location: Echo | | | LabIndications: CAD [place] CORONARY ARTERY 414.01/ I25.10 and | | [...] BARRY Room Number SARAH | | Patient [id number] Date of Study 06/16/2016 Number Visit Number | | [id number] Referring Physician JOSE ARMANDO GARCIA Number | | Date of 1960 Library Director LUIS FERNANDO DUARTE Age | | 56 year(s) Interpreting GURJIT TROY | | Target Trimmer SYDNI SINGLETARY | | Gender Male NurseProcedureType of Study TTE | | procedure: ECHO Complete.Procedure dateDate: 06/16/2016Start: 10:55 AMTechnical Quality: | | Adequate visualizationStudy Location: Echo LabIndications: CAD [place] CORONARY ARTERY | | 414.01/ I25.10 and [...] | + + + + + | [facility] | [address] | [place] | [phone] | | [facility] | | [address] | | | - IMAGING | | [...] + + | Coronary artery disease involving [place] coronary artery of [place] heart without | | angina pectoris | + + | Ascending thoracic aortic aneurysm (HCC) Thoracic aneurysm without mention of rupture | + + documented in this encounter"
--- OUTSIDE RECORDS SUMMARY | ~2019-11-12 | XMS | Encounter Summary ---
Demographics + + + | Address | [address] | | | [place] [address] | + + + | Home Phone [...] Providers + +------+ + | Care Electronic Health Records Specialist Name | Role | Phone | [...] + + | 09/05/ | Office | [facility] | Geri Angel, | SINUS BRADYCARDIA | | 2012 | Visit | CARDIOLOGY [address] | LEAD EMBEDDED SOFTWARE ENGINEER [address] | (Primary Dx); | | | | [address] [place], | St [place], [place] | Symptomatic PVCs; | | | | [place] [address] | [address] | Hypertension; | | | | [phone] | | Hyperlipidemia | +--------+---------+ + + [...] and/or ref er you to electrophysiology in [place]. 3. Return in 3 months, or sooner [...] he did not followup with electrophysiology in [place], so he has remained on diltiaze m [...] Family Status Relation Status Age Mother 62 [place] Father Alive Unknown health Brother Alive Sister [...] by mouth Ken y. 30 tablet 6 Chavies-3 Fatty Acids (SALMON OIL-1000 PO) Active CAPS, [...] Sanchez Date: September 05, 2013 : 1960 Watch And Clock Maker And Repairer: PARISA Velazquez Device Hearing Aid Consultant: Mas Con Movil Sense (mV) Impedance (?) Capture (V) Capture (ms) A Lead 4-5.6 417 1.5 0.12 RV Lead >31.36 533 2.0 0.09 LV Lead Battery Impedance (?): 452 Battery Voltage (V): 2.79 AK Interval (ms): 162 AR Interval (ms): 245 VA Conduction: Mode Switch Events: 1 % of time: <0.1 -AGRONOMIST: <0.1% AP-AGRONOMIST: 0.1% -VS: 22.7% AP-VS: 77.1% AGRONOMIST: Magnetic Rate: 85 LINDA: 65 LEAH: Current [...] to go back in 3 days to [place] for an attempt of ablation under general [...] He is upgraded to class I of [place] 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 There are no [...] he would like to see electrophysiology in [place] rather than [place] as he paulino s family there, if [...] made to ensure accuracy; however, inadvertent computerized video network engineer errors may be pre sent. [...] Interrogation | | | | | [place], | (Primary Dx); | | | | | [place] [address] | Presence of | | | | | [phone] | permanent cardiac | | | | [...] W | | | | | | [address] [place], | | | | | | [place] [address] | | | | | | [phone] | | | | | | | [...] + | Transcriptions | + + | Hayden Meloalberto - 09/05/2013 12:00 AM PDT | [...]
--- OUTSIDE RECORDS SUMMARY | ~2019-11-12 | XMS | Encounter Summary ---
Demographics + + + | Address | [address] | | | [place] [address] | + + + | Home Phone [...] Team Providers + +------+ + | Care Stull Installer Name | Role | Phone | [...] [place] | Emmanuel Daniel MD | Referral | | 2019 | | GASTROENTEROLOGY | [address], [place] | | | | | [address] [place] | [address] [place], [place] | | | | | [address] [place], [place] | [address] | | | | | [address] | | | | | | [phone] | | | +--------+ + + + [...] 2019 | Monitor | | MD [address] | Interrogation | | | | | [place], | (Primary Dx); | | | | | [place] [address] | Presence of | | | | | [phone] | permanent cardiac | | | | [...] W | | | | | | [place], | | | | | | [place] [address] | | | | | | [phone] | | | | | | | | +--------+ + + + + documented as of this encounter Visit Diagnoses Not on filedocumented in this encounter"
--- OUTSIDE RECORDS SUMMARY | ~2019-11-12 | XMS | Encounter Summary ---
Demographics + + + | Address | [address] | | | [place] [address] | + + + | Home Phone [...] + +------+ + | Care Refinery Operator Visbreaking Name | Role | Phone | + [...] [address] | | | | | [place], | [place], | | | | | [place] [address] | [place] [address] | | | | | [phone] | [phone] | | | | | | | [...] | 2018 | Monitor | | [address] | Interrogation | | | | | [place], | (Primary Dx); | | | | | [place] [address] | Presence of | | | | | [phone] | permanent cardiac | | | | [...] W | | | | | | [place], | | | | | | [place] [address] | | | | | | [phone] | | | | | | | [...] Comment | + + | [facility] | + + + +---------+ + + [...] Comment | + + | [facility] | + + + +---------+ + + [...]
--- OUTSIDE RECORDS SUMMARY | ~2019-11-12 | XMS | Encounter Summary ---
Demographics + + + | Address | [address] | | | [place] [address] | + + + | Home Phone [...] Team Providers + +------+ + | Care Presbyterian Clergy Name | Role | Phone | + [...] | RN | | | | | [place], | | | | | | [place] [address] | | | | | | [phone] | | | +--------+ + + + [...] Dx); | | | | | [place] [address] | Presence of | | | | | [phone] | permanent cardiac | | | | [...] W | | | | | | [place], | | | | | | [place] [address] | | | | | | [phone] | | | | | | | | +--------+ + + + + documented as of this encounter Visit Diagnoses Not on filedocumented in this encounter"
--- OUTSIDE RECORDS SUMMARY | ~2019-11-12 | XMS | Encounter Summary ---
Demographics + + + | Address | [address] | | | [place] [address] | + + + | Home Phone [...] Providers + +------+ + | Care Traffic Monitor Specialist Name | Role | Phone | [...] + | 01/02/ | Telephone | [facility] | Daljit Singletary, | Other (chest pain) | | 2018 | | CARDIOLOGY [address] | MD [address] [place] | | | | | [place], | [place], | | | | | [place] [address] | [place] [address] | | | | | [phone] | [phone] | | | | | | | [...] Dx); | | | | | [place] [address] | Presence of | | | | | [phone] | permanent cardiac | | | | [...] | | | | | | [place] [address] | | | | | | [phone] | | | | | | | | +--------+ + + + + documented as of this encounter Visit Diagnoses Not on filedocumented in this encounter"
--- OUTSIDE RECORDS SUMMARY | ~2019-11-12 | XMS | Encounter Summary ---
Demographics + + + | Address | [address] | | | [place] [address] | + + + | Home Phone [...] Team Providers + +------+ + | Care Bell Staff Name | Role | Phone | + +------+ + | Kirk French MD | PCP | | + +------+ + Encounter Details +--------+ + + + + | Date | Type | Department | Care Team | Description | +--------+ + + + + | 07/21/ | Hospital | [facility] | Daljit Singletary, | | | 2018 | Encounter | MED CTR NUCLEAR | MD [address] | | | | | MEDICINE [address] | [address] [place], | | | | | [place] | [place] [address] | | | | | [place] [address] | [phone] | | | | | [phone] | | | +--------+ + + + [...] + + + +---------+ + + | [place]-3 Fatty | CAPS, one capsule by | [...] Dx); | | | | | [place] [address] | Presence of | | | | | [phone] | permanent cardiac | | | | [...] W | | | | | | [place], | | | | | | [place] [address] | | | | | | [phone] | | | | | | | [...] | Starting [facility] 07/21/18 at 1224, For | | | | | | | 1 dose, Nuclear Medicine | | | | | | + +--------+ + +------+------+ +---+---+ | | | +---+---+ documented in this encounter"
--- OUTSIDE RECORDS SUMMARY | ~2019-11-12 | XMS | Encounter Summary ---
Demographics + + + | Address | [address] | | | [place] [address] | + + + | Home Phone [...] Providers + +------+ + | Care Assistant Boys Track Coach Name | Role | Phone | [...] + + | 09/13/ | Office | [facility] | Bahman Gant MD | Other dysphagia | | 2013 | Visit | OTOLARYNGOLOGY [address] | [address] [place] | (Primary Dx) | | | | [address] [place] [address] | [address] [place], | | | | | [place], [place] | [place] [address] | | | | | [address] | [phone] | | | | | [phone] | | | +--------+---------+ + + + [...] MD - 09/13/2013 5:46 PM PDTSee dictation #[id number] signed by Joseph Gant MD at 09/13/2013 5:52 PM Bahman Lamb MD - 09/13/2013 12:00 AM PDT ENT AND AUDIOLOGY [address] [facility] [address] [place] [address] FAX: [phone] OFFICE VISIT The patient gives a history [...] Gant MD GM / MS JOB #: [id number] signed by Bahman Gant MD at 09/14/2013 12:08 PM PDTdocumente d in this encounter Plan of Treatment +--------+ + + + + | Date | Type | Specialty | Care Team | Description | +--------+ + + + + | 11/20/ | Implant | Cardiology | Daljit Singletary, | Remote Device | | 2018 | Monitor | | [address] [place] | Interrogation | | | | | [address] [place], | (Primary Dx); | | | | | [place] [address] | Presence of | | | | | [phone] | permanent cardiac | | | | [...] W | | | | | | [place], | | | | | | [place] [address] | | | | | | [phone] | | | | | | | [...]
--- OUTSIDE RECORDS SUMMARY | ~2019-11-12 | XMS | Encounter Summary ---
Demographics + + + | Address | [address] | | | [place] [address] | + + + | Home Phone [...] Team Providers + +------+ + | Care Padder Cushion Name | Role | Phone | + [...] | Aneurysmal | [place], | [address] | | | | | dilatation | PARISA Solis | [place], | | | | | ([facility]) | [address] | [place] | | | | | Procedures | [place] | [address] | | | | | ECHO | [place], | Phone: | | | | | Complete | [place] | [phone] | | | | | | [address] | Fax: | | | | | | Phone: | [phone] | | | | | | [phone] | | | | | | | Fax: | | | | | | | [phone] | | +--------+--------+ + + + + [...] | | | | | Aneurysmal | [place], | [address] | | | | | dilatation | PARISA Solis | [place], | | | | | ([facility]) | [address] | [place] | | | | | Procedures | [place] | [address] | | | | | ECHO | [place], | Phone: | | | | | Complete | [place] | [phone] | | | | | | [address] | Fax: | | | | | | Phone: | [phone] | | | | | | [phone] | | | | | | | Fax: | | | | | | | [phone] | | +--------+--------+ + + + + Encounter Details +--------+ + + + + | Date | Type | Department | Care Team | Description | +--------+ + + + + | 11/16/ | Hospital | [facility] | Silvia, | Aneurysmal | | 2017 | Encounter | MED CTR ECHO [address] | Janeen, NETWORK TECHNICAL ANALYST [address] | dilatation (HCC) | | | | [place] | [place], | | | | | [place], [place] [address] | [place] [address] | | | | | [phone] | [phone] | | | | | | | [...] + + + +---------+ + + | [place]-3 Fatty | CAPS, one capsule by | [...] Dx); | | | | | [place] [address] | Presence of | | | | | [phone] | permanent cardiac | | | | [...] | 2020 | Visit | | PARISA Solis [address] | | | | | | [place], | | | | | | [place] [address] | | | | | | [phone] | | | | | | | [...] Patient Name VICTOR HUGO | | | [place] Room Number SARAH Patient | | | [id number] Date of Study 11/16/2017 Number | | | Visit Number [id number] | | | Referring Physician GURJIT TROY Number | | | NORMA SOLIS Date | | | of 1960 Executive Secretary Social Welfare ROMAINE | | | MARISSA TIPTON Age 57 year(s) Interpreting | | | GURJIT TROY | | | Transformation Lead SYDNI SINGLETARY, | | | MD | | | Gender Male Nurse | | | Stress Employee Counselor Procedure Type of | | | Study [...] | | | EF | | | Wyylsuqhu67% Left Ventricle Diastolic Dimension: 5.12 cm | [...] Volume: 46.33 ml | | | EF Vhailfgyt69% | | | | | | Left [...] Rad Results In - 11/16/2017 1:48 PM [facility] Transthoracic Echocardiography Report | | (TTE) Demographics Patient Name VICTOR HUGO BARRY Room Number SARAH | | Patient [id number] Date of Study 11/16/2017 Number Visit Number | | [id number] Referring Physician GURJIT TROY | | Number NORMA SOLIS Date of | | 1960 Executive Secretary Social Welfare ROMAINE TIPTON [facility] Age 57 year(s) | | Interpreting GURJIT TROY Transformation Lead | | SYDNI SINGLETARY MD | | [...] [place] Volume: 46.33 ml | | EF Plkibxmug59% Left Ventricle Diastolic Dimension: 5.12 cm Systolic [...] LA Volume: 46.33 ml | | EF Dddkehnwt95% | | | | Left Ventricle | [...]
--- OUTSIDE RECORDS SUMMARY | ~2019-11-12 | XMS | Encounter Summary ---
Demographics + + + | Address | [address] | | | [place] [address] | + + + | Home Phone [...] Team Providers + +------+ + | Care Flipping Machine Operator Name | Role | Phone | + +------+ + | Kirk French MD | PCP | | + +------+ + Encounter Details +--------+---------+ + + + | Date | Type | Department | Care Team | Description | +--------+---------+ + + + | 12/24/ | Surgery | [facility] | Emmanuel Daniel MD | EGD | | 2018 | | MED CTR MP INTRA OP | [address] [place] | | | | | [address] | [address] [place], [place] | | | | | [place], [place] | [address] | | | | | [address] | | | | | | [phone] | | | +--------+---------+ + + + [...] + + +---------+ + + | [place]-3 Fatty | CAPS, one capsule by | [...] Dx); | | | | | [place] [address] | Presence of | | | | | [phone] | permanent cardiac | | | | [...] W | | | | | | [place], | | | | | | [place] [address] | | | | | | [phone] | | | | | | | [...] + | Performed at: [address] [place] [address], | REFERENCE LAB | | [place], [place] [id number] Resolution Agent: William Andrew MD, Phone: | [facility] - KINA | | [phone] | | + + + + + + + + | Performing | Address | City/State/Zipcode | Phone Number | | Organization | | | | + + + + + | REFERENCE LAB | [address] | [place] [address] | [phone] | | [facility] | [facility] | | | + + + + + Campylobacter Rigoberto [place] (12/24/2017 1:34 PM PST) + + + + + + | Component | Value | Ref Range | Performed | Pathologist | | | | | At | Signature | + + + + + + | Campylobact | Negative | Negative | [facility] | | | er AG, Qual | | | [facility] [...] + + | [address] | [address] | [place] | [phone] | | [facility] | | [address] | | | - LABORATORY | | [...] | | Aeromonas, Plesiomonas, | | [facility] | | | | E. coli O157 or | | MEDICAL | | | | Yersinia isolated. | | CENTER - | | | | | | LABORATORY | | + + + + + + | Culture | 4+ Usual FloraComment: | | [facility] | | | | Consistent with usual | | [facility] | | | | enteric michelle. | [...] [address] | [place] | [phone] | | [facility] | | [address] | | | - LABORATORY | | [...] [address] | [place] | [phone] | | [facility] | | [address] | | | - LABORATORY | | [...] + + | Performed at: 01 - [address] [address], | REFERENCE LAB | | [place], [place] [id number] Resolution Agent: William Andrew MD, Phone: | [facility] | | [phone] | | + + + + + + + + | Performing | Address | City/State/Zipcode | Phone Number | | Organization | | | | + + + + + | REFERENCE LAB | [address] | [place] [address] | [phone] | | [facility] - K[facility] | [facility] | | | + + + + [...] + | [facility] | [address] | [place] | [phone] | | [facility] | | [address] | | | - LABORATORY | | [...] [address] | [place] | [phone] | | [facility] | | [address] | | | - LABORATORY | | [...] | | dium | | | [facility] | | | Antigen | | [...] [address] | [place] | [phone] | | [facility] | | [address] | | | - LABORATORY | | [...] [address] | [place] | [phone] | | [facility] | | [address] | | | [...] [address] | [place] | [phone] | | [facility] | | [address] | | | - LABORATORY | | | | + + + + + EGD (12/24/2017 1:19 PM PST) + + | Specimen | + + | | + + + + -+ | Narrative | Performed At | + + -+ | | [facility] | | GastroenterologyPatient Name: Moe SanchezKane Date: 12/24/2017 | [facility] | | 1:19 PMMRN: [id number] #: [id number] of : | | | 1960Admit Type: AmbulatoryAge: 57Room: [facility] 01Gender: MaleNote | | | Status: FinalizedAttending MD: Emmanuel Daniel , [facility]cedure: | | | Upper GI endoscopyIndications: Diarrhea, Weight | | | lossProviders: Emmanuel Daniel MD, Maria Isabel Morris RN, | | | Kim Hicks, Canoe Inspector, Jarett | | | Sapna Barakat MD [...] the anesthesiologist and | | | the weatherization technician in the endoscopy suite. Mental Status [...] [facility], [address] [place] [address] | | | [place] [address] | | | - Discharge patient to [...] [facility], [address], [place] | | | [address] | | + + -+ + +---------+ [...] 12/24/2017 | [facility] | | 1:17 PMMRN: [id number] #: [id number] of : | | | 9Admit Type: AmbulatoryAge: 57Room: [facility] 01Gender: MaleNote | | | Status: FinalizedAttending MD: Emmanuel Daniel , [facility]ITALrocedure: | | | ColonoscopyIndications: Clinically significant diarrhea of | | | unexplained originProviders: Emmanuel Daniel MD, Maria Isabel | | | Arturo RN, Kim Hicks, Canoe Inspector, | | | Jarett Barakat MD (Anesthesia [...] | | | the anesthesiologist and the weatherization technician in the endoscopy suite. | | [...] Scope In: 1:32:55 PMScope Out: 1:48:57 PM [facility] | | | [facility], [address] [place] [address] | | | [phone] | | | - Await pathology results. [...] [facility], [address] [place] [address] | | | [address] | | + + -+ + +---------+ [...] | colonic mucosa with focal adenomatous change. CLR:[facility]:C2NR | | | GROSS DESCRIPTION: Received [...] in formalin labeled | | | "Moeuriel Sanchez D." and labeled "C, bx TI" [...] | | cm, submitted, all in (D1). ka:CLR:[facility] ADDITIONAL NOTES: | | | Immunohistochemical studies were performed on this case with the | | | appropriate positive controls that react as expected. This test was | | | developed and its performance characteristics determined by [facility] [employer] [facility] | | | [employer]. It has not been cleared or approved by the U.S. Food | | | and Drug Administration. The FDA has determined that such clearance | | | or approval is not necessary. This test is used for clinical | | | purposes. It should not be regarded as investigational or for | | | research. [employer] is certified under the Clinical | | | Laboratory Improvement Amendments of 1988 (CLIA) as qualified to | | | perform high complexity clinical laboratory testing. This assay | | | has not been validated for specimens that have been decalcified. | | | PERFORMING LABORATORY: Tissue processing and slide preparation were | | | performed by [employer], [address], [facility] | | | [place] [address] (Power Plant Engineer: Evan Frausto M.D. CLIA#: | | | [id number]). Professional interpretation was performed by [facility] | | | [employer], [address], [place] [address] | | | (Power Plant Engineer: Evan Frausto M.D.; CLIA#: [id number]). | | | Diagnostician: Rafael Bales MD [...]
--- OUTSIDE RECORDS SUMMARY | ~2019-11-12 | XMS | Encounter Summary ---
Demographics + + + | Address | [address] | | | [place] [address] | + + + | Home Phone [...] Team Providers + +------+ + | Care Opener Verifier Packer Customs Name | Role | Phone | + [...] | | | | | region | [address] | | | | | | Procedures | [address] | | | | | | [place] | [place], [place] | | | | | | Myelography | [address] | | | | | | Lumbar Spine | Phone: | | | | | | | [phone] | | | | | | | Fax: | | | | | | | [phone] | | +--------+--------+ + + + + [...] | | | | | Spinal | Pai | | | | | | stenosis, | Sofía, MD | | | | | | lumbar | [address] | | | | | | region | [address] | | | | | | Procedures | [address] | | | | | | CT | [place], [place] | | | | | | Myelography | [address] | | | | | | Lumbar Spine | Phone: | | | | | | | [phone] | | | | | | | Fax: | | | | | | | [phone] | | +--------+--------+ + + + + Encounter Details +--------+ + + + + | Date | Type | Department | Care Team | Description | +--------+ + + + + | 04/07/ | Hospital | [facility] | Pia Akhtar | Spinal stenosis, | | 2016 | Encounter | MED CTR [address] | MD [address] | lumbar region | | | | [place], | [address] | | | | | [place] [address] | [place] [address] | | | | | [phone] | [phone] | | | | | | | [...] + + + +---------+ + + | [place]-3 Fatty | CAPS, one capsule by | [...] | 11/20/ | Implant | Cardiology | Rashad Singletaryotto, | Remote Device | | 2019 | Monitor | | [address] [place] | Interrogation | | | | | [place], | (Primary Dx); | | | | | [place] [address] | Presence of | | | | | [phone] | permanent cardiac | | | | [...] W | | | | | | [place], | | | | | | [place] [address] | | | | | | [phone] | | | | | | | [...]
--- OUTSIDE RECORDS SUMMARY | ~2019-11-12 | XMS | Encounter Summary ---
Demographics + + + | Address | [address] | | | [place] [address] | + + + | Home Phone [...] Providers + +------+ + | Care Electronic Component Processor Name | Role | Phone | [...] + + | 11/03/ | Refill | [facility] | Kirk French | Medication Refill | | 2019 | | [facility] | MD [address] | | | | | [facility] [address] | [address] | | | | | [address] | [place] [address] | | | | | [place], [place] | [phone] | | | | | [address] | | | | | | [phone] | | | +--------+--------+ + + + [...] | | | | | [place], | (Primary Dx); | | | | | [place] [address] | Presence of | | | | | [phone] | permanent cardiac | | | | [...] | | | | | | [place] [address] | | | | | | [phone] | | | | | | | | +--------+ + + + + documented as of this encounter Visit Diagnoses Not on filedocumented in this encounter"
--- OUTSIDE RECORDS SUMMARY | ~2019-11-12 | XMS | Encounter Summary ---
Demographics + + + | Address | [address] | | | [place] [address] | + + + | Home Phone [...] Providers + +------+ + | Care Quality Tech Name | Role | Phone | [...] + + | 04/07/ | Telephone | [facility] | Matthew Uriarte | Medication Orders | | 2019 | | [address] | MD Tawanna [address] | (Medication ) | | | | [place], [place] | [place], [place] | | | | | [address] | [address] | | | | | [phone] | | | +--------+ + + + [...] Interrogation | | | | | [place], | (Primary Dx); | | | | | [place] [address] | Presence of | | | | | [phone] | permanent cardiac | | | | [...] | | | | | | [place] [address] | | | | | | [phone] | | | | | | | | +--------+ + + + + documented as of this encounter Visit Diagnoses Not on filedocumented in this encounter"
--- OUTSIDE RECORDS SUMMARY | ~2019-11-12 | XMS | Encounter Summary ---
Demographics + + + | Address | [address] | | | [place] [address] | + + + | Home Phone [...] Team Providers + +------+ + | Care Generator Rebuilder Name | Role | Phone | + +------+ + | Kirk French MD | PCP | | + +------+ + Encounter Details +--------+ + + + + | Date | Type | Department | Care Team | Description | +--------+ + + + + | 04/07/ | Hospital | [facility] | Pia Akhtar | Spinal stenosis of | | 2016 | Encounter | MED CTR XRAY [address] | MD Sofía [address] | lumbar region | | | | [place] | [address] | | | | | [place] [address] | [place] [address] | | | | | [phone] | [phone] | | | | | | | | | | | | Rad, [facility] | | +--------+ + + + + [...] + + + +---------+ + + | [place]-3 Fatty | CAPS, one capsule by | [...] Dx); | | | | | [place] [address] | Presence of | | | | | [phone] | permanent cardiac | | | | [...] | | | | | | [place] [address] | | | | | | [phone] | | | | | | | | +--------+ + + + + documented as of this encounter Procedures + +--------+ + + + | Procedure Name | Priori | Date/Time | Associated Diagnosis | Comments | | | ty | | | | + +--------+ + + + | [place] INJECTION FOR CT | Routin | 04/07/2016 | Spinal stenosis of | Results for this | | MYELOGRAM | e | 11:28 AM | lumbar region | procedure are in the | | | | PDT | | results section. | + +--------+ + + + documented in this encounter Results [place] Injection for CT Myelogram (04/07/2016 11:28 AM PDT) + + | Specimen | + + | | + + + + + | Narrative | Performed At | + + + | FLUOROSCOPICALLY GUIDED LUMBAR MYELOGRAM INJECTION:04/07/2016 10:50 | [facility] | | AM CLINICAL HISTORY:CT MYELOGRAM LUMBAR SPINAL STENOSIS | | | PROCEDURE: The procedure of [...] the thecal sac at | | | L2-L3. Skin is marked in this location and then prepped in sterile | | | fashion. Lidocaine 1% was then instilled and the skin and along the | | | proposed path of entry. Under direct fluoroscopic observation, a | | | 22-gauge spinal needle was then advanced atraumatically into the | | | thecal sac. Clear CSF was obtained. Sterile Omnipaque 240, 6 mL was | | | then instilled, again under fluoroscopic observation. Needle was then | | | withdrawn and the procedure was terminated. Table was tilted to | | | distribute the contrast material. Patient was then taken to CT for | | | further imaging. No complications or patient discomfort occurred. | | | IMPRESSION - Uneventful fluoroscopically guided lumbar myelogram | | | injection. Dictated and Signed by: Francesco Solis MD | | | Electronically signed: 04/07/2016 1:37 PM | | + + + + + | Procedure Note | + + | Kevin, Rad Results In - 04/07/2016 1:40 PM PDT FLUOROSCOPICALLY GUIDED LUMBAR | | MYELOGRAM INJECTION:04/07/2016 10:50 AMCLINICAL HISTORY:CT MYELOGRAM LUMBAR SPINAL | | STENOSISPROCEDURE: The procedure of lumbar puncture for myelogram with associated | | risksis discussed with the patient. Verbal and written consent is then obtained | | toproceed. A timeout was performed confirming the patient's identity and | | plannedprocedure. Fluoroscopy was then utilized to identify an entry point to thethecal | | sac at L2-L3. Skin is marked in this location and then prepped in sterilefashion. | | Lidocaine 1% was then instilled and the skin and along the proposedpath of entry. Under | | direct fluoroscopic observation, a 22-gauge spinal needlewas then advanced | | atraumatically into the thecal sac. Clear CSF was obtained.Sterile Omnipaque 240, 6 mL | | was then instilled, again under fluoroscopicobservation. Needle was then withdrawn and | | the procedure was terminated. Tablewas tilted to distribute the contrast material. | | Patient was then taken to CT forfurther imaging.No complications or patient discomfort | | occurred.IMPRESSION - Uneventful fluoroscopically guided lumbar myelogram | | injection.Dictated and Signed by: Francesco Solis MD Electronically signed: 04/07/2016 | | 1:37 PM | | | |No complications or patient discomfort occurred. | | | |IMPRESSION - Uneventful fluoroscopically guided lumbar myelogram injection. | | | |Dictated and Signed by: Francesco Solis MD | | Electronically signed: 04/07/2016 1:37 PM | + + + +---------+ + + | Performing | Address | City/State/Zipcode | Phone Number | | Organization | | | | + +---------+ + + | [facility] | | | | + +---------+ + + documented in this encounter Visit Diagnoses + + | Diagnosis | + + | Spinal stenosis of lumbar region Spinal stenosis, lumbar region, without neurogenic | | claudication | + + documented in this encounter Administered Medications + +--------+ +-------+------+------+ | Medication Order | MAR | Action | Dose | Rate | Site | | | Action | Date | | | | + +--------+ +-------+------+------+ | iohexol (OMNIPAQUE 240) 240 | Given | 04/07/20 | 6 mLs | | | | mg/mL injection 6 mL 6 mL, | | 16 11:26 | | | | | Other, ONCE PRN, Other, intra | | AM PDT | | | | | thecal, Starting 04/07/16 at | | | | | | | 1126, For 1 dose, Radiology | | | | | | + +--------+ +-------+------+------+ +---+---+ | | | +---+---+ + +-------+ +--------+---+ + | lidocaine 1% injection 10 mL | Given | 04/07/20 | 10 mLs | | Other | | 10 mL, Intradermal, ONCE, Tue | | 16 11:45 | | | (Comment | | 04/07/16 at 1145, For 1 dose | | AM PDT | | | ) | + +-------+ +--------+---+ + +---+---+ | | | +---+---+ documented in this encounter"
--- OUTSIDE RECORDS SUMMARY | ~2019-11-12 | XMS | Encounter Summary ---
Demographics + + + | Address | [address] | | | [place] [address] | + + + | Home Phone [...] Team Providers + +------+ + | Care Children'S Counselor Name | Role | Phone | [...] 2019 | | GASTROENTEROLOGY | [address], [place] | Recommendations | | | | [address] [place] | [address] [place], [place] | | | | | [address] [place], [place] | [address] | | | | | [address] | | | | | | [phone] | | | +--------+ + + + [...] Interrogation | | | | | [place], | (Primary Dx); | | | | | [place] [address] | Presence of | | | | | [phone] | permanent cardiac | | | | [...] | | | | | | [place] [address] | | | | | | [phone] | | | | | | | | +--------+ + + + + documented as of this encounter Visit Diagnoses Not on filedocumented in this encounter"
--- OUTSIDE RECORDS SUMMARY | ~2019-11-12 | XMS | Encounter Summary ---
Demographics + + + | Address | [address] | | | [place] [address] | + + + | Home Phone [...] Providers + +------+ + | Care Career Guidance Technician Name | Role | Phone | + +------+ + PCP | Unavailable | + +------+ + Encounter Details +--------+ + + + + | Date | Type | Department | Care Team | Description | +--------+ + + + + | 10/26/ | Hospital | [facility] | | | | 1994 | Encounter | MED CTR EMERGENCY | | | | | | CENTER [address] | | | | | | [place] | | | | | | [address] | | | | | | [phone] | | | +--------+ + + + [...] Dx); | | | | | [place] [address] | Presence of | | | | | [phone] | permanent cardiac | | | | [...] | | | | | [place], | | | | | | [place] [address] | | | | | | [phone] | | | | | | | | +--------+ + + + + documented as of this encounter Visit Diagnoses Not on filedocumented in this encounter"
--- OUTSIDE RECORDS SUMMARY | ~2019-11-12 | XMS | Encounter Summary ---
Demographics + + + | Address | [address] | | | [place] [address] | + + + | Home Phone [...] Team Providers + +------+ + | Care Fleshing Machine Operator Name | Role | Phone | + +------+ + | Kirk French MD | PCP | | + +------+ + Encounter Details +--------+ + + + + | Date | Type | Department | Care Team | Description | +--------+ + + + + | 07/21/ | Hospital | [facility] | Daljit Singletary, | | | 2018 | Encounter | MED CTR NUCLEAR | MD [address] | | | | | MEDICINE [address] | [address] [place], | | | | | [place], | [place] [address] | | | | | [place] [address] | [phone] | | | | | [phone] | | | +--------+ + + + [...] + + + +---------+ + + | [place]-3 Fatty | CAPS, one capsule by [...] Dx); | | | | | [place] [address] | Presence of | | | | | [phone] | permanent cardiac | | | | [...] | | | | | | [place], | | | | | | [place] [address] | | | | | | [phone] | | | | | | | [...] | | | | | | Starting [facility] 07/21/18 at 1224, For | | | | | | | 1 dose, Nuclear Medicine | | | | | | + +--------+ + +------+------+ +---+---+ | | | +---+---+ documented in this encounter"
--- OUTSIDE RECORDS SUMMARY | ~2019-11-12 | XMS | Encounter Summary ---
Demographics + + + | Address | [address] | | | [place] [address] | + + + | Home Phone [...] Providers + +------+ + | Care Rail Manager Name | Role | Phone | [...] | MED CTR EXTERNAL | MD [address] | | | | | IMAGING | Jay [place]ORPE | | | | | [phone] | [place] [address] | | +--------+ + + + + [...] | MD Sim [facility] | Interrogation | | | | | [address] [place], | (Primary Dx); | | | | | [place] [address] | Presence of | | | | | [phone] | permanent cardiac | | | | [...] | | | | | | [place], | | | | | | [place] [address] | | | | | | [phone] | | | | | | | [...]
--- OUTSIDE RECORDS SUMMARY | ~2019-11-12 | XMS | Encounter Summary ---
Demographics + + + | Address | [address] | | | [place] [address] | + + + | Home Phone [...] Team Providers + +------+ + | Care Gold Letterer Name | Role | Phone | + [...] | Telephone | [facility] [place] | [place], | Other (not feeling | | 2013 | | [place] [address] | [address] | [place]all) | | | | [place], | [place], | | | | | [place] [address] | [place] [address] | | | | | [phone] | [phone] | | | | | | | [...] | 2018 | Monitor | | [address] [place] | Interrogation | | | | | [place], | (Primary Dx); | | | | | [place] [address] | Presence of | | | | | [phone] | permanent cardiac | | | | [...] | | | | | | [place] [address] | | | | | | [phone] | | | | | | | | +--------+ + + + + documented as of this encounter Visit Diagnoses Not on filedocumented in this encounter"
--- OUTSIDE RECORDS SUMMARY | ~2019-11-12 | XMS | Encounter Summary ---
Demographics + + + | Address | [address] | | | [place] [address] | + + + | Home Phone [...] Providers + +------+ + | Care Environmental Conflict Manager Name | Role | Phone | [...] | 2018 | Changes | GASTROENTEROLOGY | Policy Intern | | | | | [address] [facility] | | | | | | [address] [place] | | | | | | [address] | | | | | | [phone] | | | +--------+ + + + [...] 2019 | Monitor | | MD [address] | Interrogation | | | | | [place], | (Primary Dx); | | | | | [place] [address] | Presence of | | | | | [phone] | permanent cardiac | | | | [...] | | | | | | [place] [address] | | | | | | [phone] | | | | | | | | +--------+ + + + + documented as of this encounter Visit Diagnoses Not on filedocumented in this encounter"
--- OUTSIDE RECORDS SUMMARY | ~2019-11-12 | XMS | Encounter Summary ---
Demographics + + + | Address | [address] | | | [place] [address] | + + + | Home Phone [...] Providers + +------+ + | Care Millinery Department Manager Name | Role | Phone [...] | 09/30/ | Telephone | [facility] [place] | Daljit Singletary, | Other (Danieljoao | | 2018 | | [address] [address] | [address] [place] | remote) | | | | [place], | [place], | | | | | [place] [address] | [place] [address] | | | | | [phone] | [phone] | | | | | | | [...] Dx); | | | | | [place] [address] | Presence of | | | | | [phone] | permanent cardiac | | | | [...] | | | | | | [place] [address] | | | | | | [phone] | | | | | | | | +--------+ + + + + documented as of this encounter Visit Diagnoses Not on filedocumented in this encounter"
--- OUTSIDE RECORDS SUMMARY | ~2019-11-12 | XMS | Encounter Summary ---
Demographics + + + | Address | [address] | | | [place] [address] | + + + | Home Phone [...] Providers + +------+ + | Care Client Server Programmer Name | Role | Phone | [...] [address] | | | | | | [place], [place] | (Fax) | | | | | [address] | | | | | | [phone] | | | +--------+ + + + [...] 2019 | Monitor | | [address] | Interrogation | | | | | [place], | (Primary Dx); | | | | | [place] [address] | Presence of | | | | | [phone] | permanent cardiac | | | | [...] | | | | | | [place] [address] | | | | | | [phone] | | | | | | | | +--------+ + + + + documented as of this encounter Visit Diagnoses Not on filedocumented in this encounter"
--- OUTSIDE RECORDS SUMMARY | ~2019-11-12 | XMS | Encounter Summary ---
Demographics + + + | Address | [address] | | | [place] [address] | + + + | Home Phone [...] Team Providers + +------+ + | Care Outlet Manager Name | Role | Phone | + +------+ + | Michael Amanda DO | PCP | | + +------+ + Reason for Visit + + + | Reason | Comments | + + + | Follow-up | One month with [facility] 12/25/13 | + + + | Chest Pain | | + + + Encounter Details +--------+---------+ + + + | Date | Type | Department | Care Team | Description | +--------+---------+ + + + | 01/29/ | Office | [facility] | Silvia, | Other chest pain | | 2013 | Visit | CARDIOLOGY [address] | [place] [address] | (Primary Dx); Chest | | | | [place], | [place], | pain; Coronary | | | | [place] [address] | [place] [address] | artery disease; | | | | [phone] | [phone] | Hyperlipidemia; | | | | | [...] last week to the emergency room at [facility] with a baljit [facility] pain episode. Patient [...] needed for Chest pain. 25 tablet 12 Balsam-3 Fatty Acids (SALMON OIL-1000 PO) CAPS, one [...] was seen on the emergency room at [facility] on 01/26/2014, he was ruled out A [...] pain. He is in class II of [place] 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 There are no [...] arrhythmia performed by Dr. Gambino at [facility] on 01/30/2013. Patient had spontaneous PVCs from [...] to go back in 3 days to [place] for an attempt of ablation under general [...] symptoms. He is in class II of [place] 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 There are no [...] made to ensure accuracy; however, inadvertent computerized fire protection engineer errors may be pre sent. Electronically [...] Dx); | | | | | [place] [address] | Presence of | | | | | [phone] | permanent cardiac | | | | [...] W | | | | | | [place], | | | | | | [place] [address] | | | | | | [phone] | | | | | | | [...] type of vessel, | | [place] or graft | + + | Hyperlipidemia Other and unspecified hyperlipidemia | + + | Symptomatic PVCs Other premature beats | + + | Hypertension Unspecified essential hypertension | + + documented in this encounter
--- OUTSIDE RECORDS SUMMARY | ~2019-11-12 | XMS | Encounter Summary ---
Demographics + + + | Address | [address] | | | [place] [address] | + + + | Home Phone [...] + +------+ + | Care Director Of Business Development Name | Role | Phone [...] W | DISCLOSURE) | | | | [place], | [place], | | | | | [place] [address] | [place] [address] | | | | | [phone] | [phone] | | | | | | | [...] | 2018 | Monitor | | [address] | Interrogation | | | | | [place], | (Primary Dx); | | | | | [place] [address] | Presence of | | | | | [phone] | permanent cardiac | | | | [...] | | | | | | [place], | | | | | | [place] [address] | | | | | | [phone] | | | | | | | | +--------+ + + + + documented as of this encounter Visit Diagnoses Not on filedocumented in this encounter"
--- OUTSIDE RECORDS SUMMARY | ~2019-11-12 | XMS | Encounter Summary ---
Demographics + + + | Address | [address] | | | [place] [address] | + + + | Home Phone [...] Providers + +------+ + | Care Roll Up Machine Operator Name | Role | Phone [...] | 10/26/ | Refill | [facility] [place] | Kirk French | Medication Refill | | 2019 | | GASTROENTEROLOGY | MD [address] | | | | | [address] | [address] | | | | | [address] [place], [place] | [place] [address] | | | | | [address] | [phone] | | | | | [phone] | | | +--------+--------+ + + + [...] | | | | | [place], | (Primary Dx); | | | | | [place] [address] | Presence of | | | | | [phone] | permanent cardiac | | | | [...] | | | | | | [place] [address] | | | | | | [phone] | | | | | | | | +--------+ + + + + documented as of this encounter Visit Diagnoses Not on filedocumented in this encounter"
--- OUTSIDE RECORDS SUMMARY | ~2019-11-12 | XMS | Encounter Summary ---
Demographics + + + | Address | [address] | | | [place] [address] | + + + | Home Phone [...] Providers + +------+ + | Care Court Transcriber Name | Role | Phone | [...] | region; Cervicalgia | | | | [place], [place] | (Fax) | | | | | [address] | Cesar, | | | | | [phone] | MD Gamaliel | | +--------+ + [...] + + + +---------+ + + | [place]-3 Fatty | CAPS, one capsule by | [...] Note by Meliza Macario RN at 05/11/14 1501 Author: Meliza Macario RN Service: (none) Author Type: Registered Nurse Filed: 05/11/14 1506 Date of Service: 05/11/14 150 Status: Signed Call Taker: Meliza Macario RN (Registered Nurse) Pt discharged home, discharge instructions were reviewed, prescriptions provided, and quest ions answered. IV discontinued- gauze and tape applied to site. onver fatemeh Transaction, Provider Unknown - 05/11/2014 2:23 PM PDT Nurse Progress Note by Heike Mckeon RN at 05/11/14 1426 Author: Heike Mckeon RN Service: (none) Author Type: Registered Nurse Filed: 05/11/14 1424 Date of Service: 05/11/14 142 Status: Signed Call Taker: Heike Mckeon RN (Registered Nurse) Called doctor [...] Dx); | | | | | [place] [address] | Presence of | | | | | [phone] | permanent cardiac | | | | [...] | | | | | | [place] [address] | | | | | | [phone] | | | | | | | [...] | | | intrathecal use. See the building insulation installer examination for details of the | | | injection. Bone algorithm noncontrast technique with reformatted | | | sagittal and coronal images. Prior study for review : CT discogram | | | from 2004 was used to orient this examination given the transitional | | | anatomy of the lumbosacral junction FINDINGS: [place] is notable | | | for a [...] for intrathecal use. See | | the building insulation installer examination for details of the injection. Bone algorithm noncontrast | | technique with reformatted sagittal and coronal images. Prior study for review : CT | | discogram from 2004 was used to orient this examination given the transitional anatomy | | of the lumbosacral junction FINDINGS: [place] is notable for a pacing system. Anterior [...]
--- OUTSIDE RECORDS SUMMARY | ~2019-11-12 | XMS | Encounter Summary ---
Demographics + + + | Address | [address] | | | [place] [address] | + + + | Home Phone [...] Providers + +------+ + | Care Casting Inspector Name | Role | Phone | + +------+ + | Kirk French MD | PCP | | + +------+ + Encounter Details +--------+ + + + + | Date | Type | Department | Care Team | Description | +--------+ + + + + | 10/25/ | Hospital | [facility] | Kirk French | Chronic pain | | 2017 | Encounter | MED CTR ULTRASOUND | MD [address] | disorder; Stomach | | | | [address] | [address] | ache; Obesity, | | | | [place], [place] | [place] [address] | unspecified | | | | [address] | [phone] | classification, | | | | [phone] | | unspecified obesity | | | [...] | 2018 | Monitor | | [address] [place] | Interrogation | | | | | [place], | (Primary Dx); | | | | | [place] [address] | Presence of | | | | | [phone] | permanent cardiac | | | | [...] W | | | | | | [place], | | | | | | [place] [address] | | | | | | [phone] | | | | | | | [...]
--- OUTSIDE RECORDS SUMMARY | ~2019-11-12 | XMS | Encounter Summary ---
Demographics + + + | Address | [address] | | | [place] [address] | + + + | Home Phone [...] Team Providers + +------+ + | Care Sleever Name | Role | Phone | + +------+ + | Michael Amanda DO | PCP | | + +------+ + Encounter Details +--------+ + + + + | Date | Type | Department | Care Team | Description | +--------+ + + + + | 11/03/ | Emergency | [facility] | Eliel Calzada, | Palpitations; | | 2013 - | | MEDICAL CENTER | MD Chiquis ORO | Atypical chest pain | | | | EMERGENCY CENTER | [facility] [place] | | | 11/04/ | | [address] | [address] | | | 2013 | | [place], [place] | | | | | | [address] | | | | | | [phone] | | | +--------+ + + + [...] + + +---------+ + + | [place]-3 Fatty | CAPS, one capsule by | [...] Dx); | | | | | [place] [address] | Presence of | | | | | [phone] | permanent cardiac | | | | [...] W | | | | | | [place], | | | | | | [place] [address] | | | | | | [phone] | | | | | | | [...] CHEST 2 VIEW FRONTAL | | AND SYNQZNB6711/03/2014 11:56 PM History: 54 years. Male. Acute [...] | | | performed at [facility] | | LAB | | | | [address];[place] | | | | | | [address] | | | | + + + + + -+ | RED CELL | 4.97Comment: Testing | 4.20 - 5.70 | EXTERNAL | | | COUNT | performed at [facility];[address] | M/uL | LAB | | | | [address];[place] | | | | | | [address] | | | | + + + + + -+ | Hgb | 16.8Comment: Testing | 13.2 - 17.0 | EXTERNAL | | | | performed at [facility];[place] | g/dL | LAB | | | | [address];[place] | | | | | | [address] | | | | + + + + + -+ | Hematocrit, | 48.2Comment: Testing | 39.0 - 50.0 % | EXTERNAL | | | POC | performed at [facility];[address] | | LAB | | | | [address];[place] | | | | | | [address] | | | | + + + + + -+ | MCV | 97.1Comment: Testing | 80.0 - 100.0 fl | EXTERNAL | | | | performed at [facility];[address] | | LAB | | | | [address];[place] | | | | | | [address] | | | | + + + + + -+ | MCH | 33.9Comment: Testing | 27.0 - 34.0 pg | EXTERNAL | | | | performed at [facility];[address] | | LAB | | | | [address];[place] | | | | | | [address] | | | | + + + + + -+ | MCHC | 34.9Comment: Testing | 32.0 - 35.5 | EXTERNAL | | | | performed at [facility];888 | g/dL | LAB | | | | [address];[place] | | | | | | [address] | | | | + + + + + -+ | RDW-CV | 42.4Comment: Testing | 37 - 53 fl | EXTERNAL | | | | performed at [facility];[address] | | LAB | | | | [address];[place] | | | | | | [address] | | | | + + + + + -+ | Platelet | 143 (L)Comment: Testing | 150 - 400 K/uL | EXTERNAL | | | Count | performed at [facility];[address] | | LAB | | | Plasma | [address];[place] | | | | | | [address] | | | | + + + + + -+ | MPV | 9.0Comment: Testing | fl | EXTERNAL | | | | performed at [facility];[address] | | LAB | | | | [address];[place] | | | | | | [address] | | | | + + + + + -+ | Differentia | AUTOMATEDComment: | | EXTERNAL | | | l Type | Testing performed at | | LAB | | | | [facility];[address] | | | | | | [address];[place] [address] | | | | + + + + + -+ | % Segmented | 61.6Comment: Testing | % | EXTERNAL | | | | performed at [facility];[address] | | LAB | | | Neutrophils | [address];[place] | | | | | | [address] | | | | + + + + + -+ | % | 27.8Comment: Testing | % | EXTERNAL | | | Lymphocytes | performed at [facility];[address] | | LAB | | | | [address];[place] | | | | | | [address] | | | | + + + + + -+ | % Monocytes | 8.7Comment: Testing | % | EXTERNAL | | | | performed at [facility];[address] | | LAB | | | | [address];[place] | | | | | | [address] | | | | + + + + + -+ | % | 0.8Comment: Testing | % | EXTERNAL | | | Eosinophils | performed at [facility];[address] | | LAB | | | | [address];[place] | | | | | | [address] | | | | + + + + + -+ | % Basophils | 1.1Comment: Testing | % | EXTERNAL | | | | performed at [facility];[address] | | LAB | | | | [address];[place] | | | | | | [address] | | | | + + + + + -+ | Absolute | 5.4Comment: Testing | 1.9 - 7.4 K/uL | EXTERNAL | | | Segmented | performed at [facility];[address] | | LAB | | | Neutrophils | [address];[place] | | | | | | [address] | | | | + + + + + -+ | Absolute | 2.4Comment: Testing | 1.0 - 3.9 K/uL | EXTERNAL | | | Lymphocytes | performed at [facility];[address] | | LAB | | | | [address];[place] | | | | | | [address] | | | | + + + + + -+ | Absolute | 0.8Comment: Testing | 0 - 0.8 K/uL | EXTERNAL | | | Monocytes | performed at [facility];[address] | | LAB | | | | [address];[place] | | | | | | [address] | | | | + + + + + -+ | Absolute | 0.1Comment: Testing | 0 - 0.5 K/uL | EXTERNAL | | | Eosinophils | performed at [facility];[address] | | LAB | | | | [address];[place] | | | | | | [address] | | | | + + + + + -+ | Absolute | 0.1Comment: Testing | 0 - 0.1 K/uL | EXTERNAL | | | Basophils | performed at [facility];[address] | | LAB | | | | [address];[place] | | | | | | [address] | | | | + + + + + -+ | RBC | SLIDE SCANNED, AGREES | | EXTERNAL | | | Morphology | WITH AUTOMATED | | LAB | | | | RESULTS.Comment: Testing | | | | | | performed at [facility];[address] | | | | | | [address];[place] | | | | | | [address] | | | | + + + + + -+ | Na | 140Comment: Testing | 135 - 143 | EXTERNAL | | | | performed at [facility];[address] | mmol/L | LAB | | | | [address];[place] | | | | | | [address] | | | | + + + + + -+ | K | 3.9Comment: Testing | 3.5 - 4.9 | EXTERNAL | | | | performed at [facility];888 | mmol/L | LAB | | | | [address];[place] | | | | | | [address] | | | | + + + + + -+ | Cl | 107Comment: Testing | 99 - 109 mmol/L | EXTERNAL | | | | performed at [facility];[address] | | LAB | | | | [address];[place] | | | | | | [address] | | | | + + + + + -+ | CO2 | 28Comment: Testing | 23 - 32 mmol/L | EXTERNAL | | | | performed at [facility];[address] | | LAB | | | | [address];[place] | | | | | | [address] | | | | + + + + + -+ | Anion Gap | 9Comment: Testing | 5 - 20 mmol/L | EXTERNAL | | | | performed at [facility];[address] | | LAB | | | | [address];[place] | | | | | | [address] | | | | + + + + + -+ | Glucose, | 97Comment: Testing | 65 - 99 mg/dL | EXTERNAL | | | Fasting | performed at [facility];[address] | | LAB | | | | [address];[place] | | | | | | [address] | | | | + + + + + -+ | BUN | 14Comment: Testing | 8 - 25 mg/dL | EXTERNAL | | | | performed at [facility];[address] | | LAB | | | | [address];[place] | | | | | | [address] | | | | + + + + + -+ | Creatinine | 0.98Comment: Testing | 0.70 - 1.30 | EXTERNAL | | | | performed at [facility];888 | mg/dL | LAB | | | | [address];[place] | | | | | | [address] | | | | + + + + + -+ | BUN/Creatin | 14Comment: Testing | | EXTERNAL | | | ine Ratio | performed at [facility];[address] | | LAB | | | | [address];[place] | | | | | | [address] | | | | + + + + + -+ | Calcium | 8.8Comment: Testing | 8.5 - 10.2 | EXTERNAL | | | | performed at [facility];888 | mg/dL | LAB | | | | [address];[place] | | | | | | [address] | | | | + + + + + -+ | Protein, | 6.9Comment: Testing | 6.3 - 8.2 g/dL | EXTERNAL | | | Total | performed at [facility];[address] | | LAB | | | | [address];[place] | | | | | | [address] | | | | + + + + + -+ | Albumin | 3.7Comment: Testing | 3.6 - 5.0 g/dL | EXTERNAL | | | | performed at [facility];[address] | | LAB | | | | [address];[place] | | | | | | [address] | | | | + + + + + -+ | Globulin | 3.2Comment: Testing | 1.3 - 4.9 g/dL | EXTERNAL | | | | performed at [facility];[address] | | LAB | | | | [address];[place] | | | | | | [address] | | | | + + + + + -+ | A/G Ratio | 1.2Comment: Testing | 1.0 - 2.4 | EXTERNAL | | | | performed at [facility];[address] | | LAB | | | | [address];[place] | | | | | | [address] | | | | + + + + + -+ | Bilirubin | 0.9Comment: Testing | 0.1 - 1.5 mg/dL | EXTERNAL | | | Total | performed at [facility];[address] | | LAB | | | | [address];[place] | | | | | | [address] | | | | + + + + + -+ | ALP, | 60Comment: Testing | 35 - 115 U/L | EXTERNAL | | | External | performed at [facility];[address] | | LAB | | | | [address];[place] | | | | | | [address] | | | | + + + + + -+ | AST | 22Comment: Testing | 10 - 45 U/L | EXTERNAL | | | | performed at [facility];[address] | | LAB | | | | [address];[place] | | | | | | [address] | | | | + + + + + -+ | ALT | 37Comment: Testing | 10 - 65 U/L | EXTERNAL | | | | performed at [facility];[address] | | LAB | | | | [facility];[place] | | | | | | [address] | | | | + + + [...] | | | | at [facility];[address] [facility] | | | | | | Blvd;[place] [address] | | | | + + + + + -+ | CK, Total | 103Comment: Testing | 55 - 400 U/L | EXTERNAL | | | | performed at [facility];[address] | | LAB | | | | [facility];[place] | | | | | | [address] | | | | + + + [...] | | | performed at [facility];[address] | | | | | | [address];[place] | | | | | | [address] | | | | + + + + + -+ | aPTT, | 26Comment: Testing | 23 - 32 seconds | EXTERNAL | | | Patient | performed at [facility];[address] | | LAB | | | | [address];[place] | | | | | | [address] | | | | + + + + + -+ | CK-MB | 2.9Comment: Testing | 0.5 - 3.6 ng/mL | EXTERNAL | | | | performed at [facility];[address] | | LAB | | | | [address];[place] | | | | | | [address] | | | | + + + [...] | | | performed at [facility];888 | uIU/mL | LAB | | | | [address];[place], [place] | | | | | | [address] | | | | + + + [...] | | | performed at [facility];[address] | | LAB | | | | [address];[place] | | | | | | [address] | | | | + + + [...] | | | performed at [facility] | | LAB | | | | [address];[place] | | | | | | [address] | | | | + + + [...] | | | | | ONLY, -COMPUTER (135), | | | | | | assistant film editor Michelle Butcher | | | | | | (29) on 11/04/2014 | | | | | | 6:28:13 AM | | | | + + + + + + + + | Specimen | + + | | + + + + + | Narrative | Performed At | + + + | Historically converted procedure from [employer] Epic environment | EXTERNAL LAB | + [...]
--- OUTSIDE RECORDS SUMMARY | ~2019-11-12 | XMS | Encounter Summary ---
Demographics + + + | Address | [address] | | | [place] [address] | + + + | Home Phone [...] Team Providers + +------+ + | Care Mastic Worker Name | Role | Phone | [...] | | | | [place] | [address] | | | | | [address] | | | | | | [phone] | | | +--------+ + + + [...] 2018 | Monitor | | MD [address] | Interrogation | | | | | [place], | (Primary Dx); | | | | | [place] [address] | Presence of | | | | | [phone] | permanent cardiac | | | | [...] W | | | | | | [place], | | | | | | [place] [address] | | | | | | [phone] | | | | | | | | +--------+ + + + + documented as of this encounter Visit Diagnoses Not on filedocumented in this encounter"
--- OUTSIDE RECORDS SUMMARY | ~2019-11-12 | XMS | Encounter Summary ---
Demographics + + + | Address | [address] | | | [place] [address] | + + + | Home Phone [...] Providers + +------+ + | Care Industrial Custodian Name | Role | Phone | [...] | Telephone | [facility] [place] | [place], | Other (not feeling | | 2013 | | [place] [address] | [place] [address] | [place]) | | | | [place], | [place], | | | | | [place] [address] | [place] [address] | | | | | [phone] | [phone] | | | | | | | [...] | 2018 | Monitor | | [address] [place] | Interrogation | | | | | [place], | (Primary Dx); | | | | | [place] [address] | Presence of | | | | | [phone] | permanent cardiac | | | | [...] | | | | | | [place] [address] | | | | | | [phone] | | | | | | | | +--------+ + + + + documented as of this encounter Visit Diagnoses Not on filedocumented in this encounter"
--- OUTSIDE RECORDS SUMMARY | ~2019-11-12 | XMS | Encounter Summary ---
Demographics + + + | Address | [address] [place] [address] | | | [place] [address] | + + + | Home Phone [...] | Author | [facility] | + + + | Organization | [facility] | + + + | Address | Unknown | + + + | Phone | Unavailable | + + + Support + + + + + | Name | Relationship | Address | Phone | + + + + + | Rachel Valencia | ELIEZER | [place] | | | | | [address] | | + + + + + Care Team Providers + +------+ + | Care Software Support Specialist Name | Role | Phone [...] | | | [address] | [place], [place] | | | | | Mailcode: [place] | [address] | | | | | for Health and | [phone] | | | | | [facility], [facility] [address] | | | | | | [place], [place] | | | | | | [address] | | | | | | [phone] | | | +--------+ + + + [...]
--- OUTSIDE RECORDS SUMMARY | ~2019-11-12 | XMS | Encounter Summary ---
Demographics + + + | Address | [address] | | | [place] [address] | + + + | Home Phone [...] Providers + +------+ + | Care Pipe Fitter [employer] Name | Role | Phone | [...] + | 06/23/ | Office | [facility] | [place], | Ascending thoracic | | 2016 | Visit | CARDIOLOGY [address] | [address] [address] | aortic aneurysm | | | | [place], | [place], | ([facility]) (Primary Dx); | | | | [place] [address] | [place] [address] | Coronary artery | | | | [phone] | [phone] | disease involving | | | | | | newhalen coronary | | | | | | artery of new[place]en | | | | | | heart [...] in office in 6 months. hgabby, Janeen, WEAPONS AND TACTICS INSTRUCTOR - 06/23/2016 12:45 PM PDT PATIENT NAME: Moe Sanchez : 1960: AGE: 56 y.o. PRIMARY CARE: Kirk French MD OUTPATIENT FOLLOW UP VISIT Date of Service: 06/23/2016 HISTORY OF PRESENT ILLNESS: Moe Sanchez is a 56 y.o. 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 Non-critical Coronary artery disease involving newhalen coronary artery of new[place]en heart [facility] angina pectoris: A. Normal exercise sestamibi [...] pain. He is in class I-II of [employer] [facility] [employer] [facility] functional class. There are [...] to go back in 3 days to [place] for an attempt of ablation under general [...] this chart may have been created with Symtext voice recognition software. Occasi onal wrong-word or [...] 11/20/ | Implant | Cardiology | Daljit Sinlgetary, | Remote Device | | 2018 | Monitor | | [address] [place] | Interrogation | | | | | [place], | (Primary Dx); | | | | | [place] [address] | Presence of | | | | | [phone] | permanent cardiac | | | | [...] W | | | | | | [place], | | | | | | [place] [address] | | | | | | [phone] | | | | | | | [...] the | | | | PDT | newhalen coronary | results section. | | | | | artery of newhalen | | | | | | heart [...] MD | | | | | | ([id number]) on 06/23/2016 | | | | | [...] + + | Coronary artery disease involving newhalen coronary artery of newhalen heart without | | angina pectoris | [...]
--- OUTSIDE RECORDS SUMMARY | ~2019-11-12 | XMS | Encounter Summary ---
Demographics + + + | Address | [address] | | | [place] [address] | + + + | Home Phone [...] Providers + +------+ + | Care Aircraft Metalsmith Name | Role | Phone | + +------+ + | Kirk French MD | PCP | | + +------+ + Encounter Details +--------+---------+ + + + | Date | Type | Department | Care Team | Description | +--------+---------+ + + + | 12/24/ | Surgery | [facility] | Emmanuel Daniel MD | EGD | | 2018 | | MED CTR MP INTRA OP | [address], [place] | | | | | [address] | [address] [place], [place] | | | | | [place], [place] | [address] | | | | | [address] | | | | | | [phone] | | | +--------+---------+ + + + [...] Dx); | | | | | [place] [address] | Presence of | | | | | [phone] | permanent cardiac | | | | [...] W | | | | | | [place], | | | | | | [place] [address] | | | | | | [phone] | | | | | | | [...] + | Performed at: [address] [address], | REFERENCE LAB | | [place], [place] [id number] Deployment Technician: William Andrew MD, Phone: | [facility] - [facility]INA | | [phone] | | + + + + + + + + | Performing | Address | City/State/Zipcode | Phone Number | | Organization | | | | + + + + + | REFERENCE LAB | [address] | [place] [address] | [phone] | | [facility] - [facility] | [facility] | | | + + + [...] [address] | [place] | [phone] | | [facility] | | [address] | | | - LABORATORY | | [...] | | Aeromonas, Plesiomonas, | | [facility] | | | | E. coli [...] [address] | [place] | [phone] | | [facility] | | [address] | | | - LABORATORY | | [...] | 2 | | | [address] | [...] [address] | [place] | [phone] | | [facility] | | [address] | | | - LABORATORY | | [...] + + | Performed at: [address] - [address] [address], | REFERENCE LAB | | [place], [place] [address] Deployment Technician: William Andrew MD, Phone: | [facility] - [facility] | | [phone] | | + + + + + + + + | Performing | Address | City/State/Zipcode | Phone Number | | Organization | | | | + + + + + | REFERENCE LAB | [address] | [place] [address] | [phone] | | [facility] - K[facility] | [facility] | | | + + + + [...] + | [facility] | [address] | [place] | [phone] | | [facility] | | [address] | | | - LABORATORY | | [...] [address] | [place] | [phone] | | [facility] | | [address] | | | - LABORATORY | | [...] | | dium | | | [facility] | | | Antigen | | [...] [address] | [place] | [phone] | | [facility] | | [address] | | | - LABORATORY | | [...] [address] | [place] | [phone] | | [facility] | | [address] | | | - LABORATORY | | [...] [address] | [place] | [phone] | | [facility] | | [address] | | | - LABORATORY | | | | + + + + + EGD (12/24/2017 1:19 PM PST) + + | Specimen | + + | | + + + + -+ | Narrative | Performed At | + + -+ | | [facility] | | GastroenterologyPatient Name: Moe SanchezKane Date: 12/24/2017 | PROVATION | | 1:19 PMMRN: [id number] #: [id number] of : | | | 1960Admit Type: AmbulatoryAge: 57[facility]Gender: MaleNote | | | Status: FinalizedAttending MD: Emmanuel Daniel , [facility]cedure: | | | Upper GI endoscopyIndications: Diarrhea, Weight | | | lossProviders: Emmanuel Daniel MD, Maria Isabel Morris RN, | | | Kim Hicks, Computer Systems Support Specialist, Jarett | | | Sapna Barakat MD [...] the anesthesiologist and | | | the reactor technician in the endoscopy suite. Mental Status [...] PMScope Out: 1:31:13 PM | | | [facility], [address] [place] [address] | | | [place] [address] | | | - Discharge patient to [...] |Scope Out: 1:31:13 PM | | | [facility], [address], [place] | | | [address] | | + + -+ + +---------+ [...] 12/24/2017 | [facility]OVATION | | 1:17 PMMRN: [id number] #: [id number] of : | | | 8Admit Type: AmbulatoryAge: 57[facility] 01Gender: MaleNote | | | Status: FinalizedAttending MD: Emmanuel Daniel , [facility]cedure: | | | ColonoscopyIndications: Clinically significant diarrhea of | | | unexplained originProviders: Emmanuel Daniel MD, Maria Isabel | | | Arturo RN, Kim Hicks, Computer Systems Support Specialist, | | | Jarett Barakat MD [...] | | | the anesthesiologist and the reactor technician in the endoscopy suite. | | [...] Scope In: 1:32:55 PMScope Out: 1:48:57 PM Merged With [facility] | | | [facility], [address] [place] [address] | | | [phone] | | | - Await pathology results. [...] |Scope Out: 1:48:57 PM | | | [facility], [address] [place] [address] | | | [address] | | + + -+ + +---------+ [...] | colonic mucosa with focal adenomatous change. CLR:[facility]:C2NR | | | GROSS DESCRIPTION: [...] | | cm, submitted, all in (D1). ka:CLR:[facility] ADDITIONAL NOTES: | | | Immunohistochemical studies were performed on this case with the | | | appropriate positive controls that react as expected. This test was | | | developed and its performance characteristics determined by [facility] | | | [facility]. It has not been cleared or approved by the U.S. Food | | | and Drug Administration. The FDA has determined that such clearance | | | or approval is not necessary. This test is used for clinical | | | purposes. It should not be regarded as investigational or for | | | research. [facility] is certified under the Clinical | | | Laboratory Improvement Amendments of 1988 (CLIA) as qualified to | | | perform high complexity clinical laboratory testing. This assay | | | has not been validated for specimens that have been decalcified. | | | PERFORMING LABORATORY: Tissue processing and slide preparation were | | | performed by [facility], [address], [facility] | | | [place] [address] (Stabber: Evan Frausto M.D. CLIA#: | | | [id number]). Professional interpretation was performed by [facility] | | | [facility], [address], [place] [address] | | | (Stabber: Evan Frausto M.D.; CLIA#: [id number]). | | | Diagnostician: Rafael Bales MD Pathologist Electronically | | | Signed 12/28/2017 | | + + + + +---------+ + + | Performing | Address | City/State[facility] | Phone Number | | [...]
--- OUTSIDE RECORDS SUMMARY | ~2019-11-12 | XMS | Encounter Summary ---
Demographics + + + | Address | [address] | | | [place] [address] | + + + | Home Phone [...] | [facility] | | | and [...] Providers + +------+ + | Care Business Agent Name | Role | Phone | [...] type ER | [address] | [address] | | | | | FUP | [place] | [place], | | | | | Procedures | [place], [place] | [place] [address] | | | | | FUP - SUW & | [address] | Phone: | | | | | EVM PT, LAST | Phone: | [phone] | | | | | SEEN | [phone] | Fax: | | | | | 08-24-18 | Fax: | [phone] | | | | | | [phone] | | +--------+ + + + + [...] | | | | CENTER [address] | [address] [place] | (Primary Dx) | | | | [place], [place] | [place] [address] | | | | | [address] | [phone] | | | | | [phone] | | | +--------+ + + + [...] through Care Everywhere.Chest Pain, Unc ertain Cause (Lithuanian)documented in this encounter Medications at Time of [...] + + + +---------+ + + | [place]-3 Fatty | CAPS, one capsule by | [...] | 11/20/ | Implant | Cardiology | Shaista Singletarywong, | Remote Device | | 2018 | Monitor | | [address] [facility] | Interrogation | | | | | [place], | (Primary Dx); | | | | | [place] [address] | Presence of | | | | | [phone] | permanent cardiac | | | | [...] W | | | | | | [address] [place], | | | | | | [place] [address] | | | | | | [phone] | | | | | | | [...] | | | | HIREN WINKLER, ANGELA ([id number]) | | | | | | on [...] | | | | | | [employer] | | | | | [...] [address] | [place] | [phone] | | [facility] | | [address] | | | - LABORATORY | | [...] [address] | [place] | [phone] | | [facility] | | [address] | | | - LABORATORY | | [...] - 1.030 | [facility] | | | M[place]y | | | [facility] | | [...] | + + + + + | [facility] [facility] | [address] | [place] | [phone] | | [facility] | | [address] | | | - LABORATORY | | [...] + | [facility] | [address] | [place], [place] | [phone] | | [facility] | | [address] | | | - LABORATORY | | [...] [address] | [place] | [phone] | | [facility] | | [address] | | | - LABORATORY | | [...] | | | | | | [employer] | | | | | [...] [address] | [place] | [phone] | | [facility] | | [address] | | | - LABORATORY | | [...] 13 | 7 - 18 mg/dL | [facility] | | | | | | [facility] | | | | | | MEDICAL | | | | | | CENTER - | | | | | | LABORATORY | | + + + + + + | Creatinine | 0.96 | 0.60 - 1.30 | [facility] | | | | | mg/dL | [facility] | | | | | | MEDICAL | | | | | | CENTER - | | | | | | LABORATORY | | + + + + + + | eGFR if not | >60Comment: GLOMERULAR | >=60 | [facility] | | | | FILTRATION | mL/min/1.73m2 | [facility] | | | MALAGASY | RATE,ESTIMATED | | MEDICAL | | | | mL/min/1.48l7Gyks than | | CENTER - | | [...] | appended report. These | | [facility] | | | | results have been [...] | | bulin Ratio | | | [facility] | [...] [address] | [place] | [phone] | | [facility] | | [address] | | | - LABORATORY | | [...] + | [address] | [address] | [place] | [phone] | | [facility] | | [address] | | | - LABORATORY | | [...] | | | | ANGELA MARADIAGA MD ([id number]) | | | | | | on [...]
--- OUTSIDE RECORDS SUMMARY | ~2019-11-12 | XMS | Encounter Summary ---
Demographics + + + | Address | [address] | | | [place] [address] | + + + | Home Phone [...] Providers + +------+ + | Care Quality Improvement Analyst Name | Role | Phone | [...] 2012 | | CARDIOLOGY [address] | PSYCHOTHERAPIST SOCIAL WORKER [address] | | | | | [place], | [place], [place] | | | | | [place] [address] | [address] | | | | | [phone] | | | +--------+ + + + [...] Dx); | | | | | [place] [address] | Presence of | | | | | [phone] | permanent cardiac | | | | [...] | | | | | | [place] [address] | | | | | | [phone] | | | | | | | [...] + | [address] | [address] | [place], [place] | | | [facility] | | [address] | | | - LABORATORY | | [...] | | | LAB | | | Niuean, | | | | | | External [...]
--- OUTSIDE RECORDS SUMMARY | ~2019-11-12 | XMS | Encounter Summary ---
Demographics + + + | Address | [address] | | | [place] [address] | + + + | Home Phone [...] Providers + +------+ + | Care Foundation Stage Teacher Name | Role | Phone | [...] | | CARDIOLOGY [address] | [address] | | | | | [place], | [place], | | | | | [place] [address] | [place] [address] | | | | | [phone] | [phone] | | | | | | | [...] | 2018 | Monitor | | [address] | Interrogation | | | | | [place], | (Primary Dx); | | | | | [place] [address] | Presence of | | | | | [phone] | permanent cardiac | | | | [...] W | | | | | | [place], | | | | | | [place] [address] | | | | | | [phone] | | | | | | | | +--------+ + + + + documented as of this encounter Visit Diagnoses Not on filedocumented in this encounter"
--- OUTSIDE RECORDS SUMMARY | ~2019-11-12 | XMS | Encounter Summary ---
Demographics + + + | Address | [address] | | | [place] [address] | + + + | Home Phone [...] Team Providers + +------+ + | Care Wafer Polishing Lead Worker Name | Role | Phone | + +------+ + | Kirk French MD | PCP | | + +------+ + Encounter Details +--------+---------+ + + + | Date | Type | Department | Care Team | Description | +--------+---------+ + + + | 01/05/ | Surgery | [facility] | Emmanuel Daniel MD | EGD | | 2019 | | MED CTR MP INTRA OP | [address], [place] | | | | | [address] | [address] [place], [place] | | | | | [place], [place] | [address] | | | | | [address] | | | | | | [phone] | | | +--------+---------+ + + + [...] for a few hours. Date Last Reviewed: 09/22/201619999932-4971 [employer] [address] [place] [address]. All righ ts reserved. This information is [...] vomiting, or vomiting blood Date Last Reviewed: 05/22/201619999382-7562 [employer] [address] [place] [address]. All righ ts reserved. This information is [...] You can't be awakened Date Last Reviewed: 09/08/201619998230-0656 [employer] [address] [place] [address], [place] [address]. All righ ts reserved. This information is [...] Dx); | | | | | [place] [address] | Presence of | | | | | [phone] | permanent cardiac | | | | [...] W | | | | | | [place], | | | | | | [place] [address] | | | | | | [phone] | | | | | | | [...] - Walter Hodges [address] [address], | REFERENCE LAB | | [place] [phone] Clinical Field Specialist: Miguel Galarza MD, Phone: | [facility] | | [phone] | | + + + + + + + + | Performing | Address | City/State/Zipcode | Phone Number | | Organization | | | | + + + + + | REFERENCE LAB | [address] | [place] [address] | [phone] | | [facility] | Drive [...] + + | Performed at: 01 - [facility] [address], | REFERENCE LAB | | [place], [place] [address] Clinical Field Specialist: Miguel Galarza MD, Phone: | [facility] | | [phone] | | + + + + + + + + | Performing | Address | City/State/Zipcode | Phone Number | | Organization | | | | + + + + + | REFERENCE LAB | [address] | [place] [address] | [phone] | | [facility] | Drive [...] [address] | [place] | [phone] | | [facility] | | [address] | | | - LABORATORY | | [...] Difficile | Negative for toxigenic | | [facility] | | | [facility] Antigen | Clostridium difficile | | MEDICAL | | | | | | CENTER - | | | | | | LABORATORY | | + + + + + + | C. Diff | NegativeComment: No data | Negative | [facility] | | | Toxin A/B | exists on the effects | | [facility] | | | EIA | of [...] [address] | [place] | [phone] | | [facility] | | [address] | | | - LABORATORY | | [...] + | [facility] | [address] | [place] | [phone] | | [facility] | | [address] | | | - LABORATORY | | [...] [address] | [place] | [phone] | | [facility] | | [address] | | | - LABORATORY | | [...] + | [facility] | [address] | [place] | [phone] | | [facility] | | [address] | | | - LABORATORY | | [...] ST. | [address] | [place], [place] | [phone] | | [facility] | | [address] | | | - LABORATORY | | | | + + + + + EGD (01/05/2019 8:36 AM PST) + + | Specimen | + + | | + + + + -+ | Narrative | Performed At | + + -+ | | [facility] | | GastroenterologyPatient Name: Moe Venegas Date: | [place] | | 01/05/2019 8:36 AMMRN: [id number] #: [id number] of : | | | 9Admit Type: AmbulatoryAge: 58Room: [facility] 01Gender: MaleNote | | | Status: FinalizedAttending MD: Emmanuel Daniel , CITIZENS BAPTISTrocedure: | | | Upper GI endoscopyIndications: Diarrhea, Weight | | | lossProviders: Emmanuel Daniel MD, Heidi Gonzalezchfield, | | | RN, Kim Hicks, Career And Guidance Counselor, | | | Jarett Barakat MD [...] physician, the nurse, the anesthesiologist and the process technician | | | in the endoscopy [...] | | Imaging was performed using the [employer] | | | Endoscopy (FICE) [...] Scope In: 8:43:57 AMScope Out: 8:49:50 AM [place] . | | | [facility], [address] [place] [address] | | | [phone] | | |Recommendation: | | | - [...] |Scope Out: 8:49:50 AM | | | [facility], [facility] [address] [place], [place] | | | [address] | | + + -+ + +---------+ + + | Performing | Address | City/State/[facility] Centercode | Phone Number | [...] | [place] | | 01/05/2019 8:36 AMMRN: [id number] #: [id number] of : | | | 9Admit Type: AmbulatoryAge: 58Room: [facility] 01Gender: MaleNote | | | Status: FinalizedAttending MD: Emmanuel Daniel CITIZENS BAPTISTrocedure: | | | ColonoscopyIndications: Clinically significant diarrhea of | | | unexplained origin, Weight lossProviders: | | | Emmanuel Daniel MD, Heidi An RN, Kim | | | Fiorella Hicks, Career And Guidance Counselor, Jarett Alejo | | | MD Roshni [...] | | | the anesthesiologist and the process technician in the endoscopy suite. | | [...] AMScope Out: | | | 9:06:28 AM [facility], [address] [place] [address], | | | [place] [address] | | | - Discharge patient to [...] |Scope Out: 9:06:28 AM | | | [facility], [address] [place] [address], [place], [place] | | | [address] | | + + -+ + +---------+ [...] | | | (atherosclerotic heart disease of venetie coronary artery without | | | angina [...] chronic or | | | microscopic colitis. BES:[facility]:C3NR GROSS DESCRIPTION: A. The | | | specimen, labeled "[place], duodenal biopsy" is received in formalin | | | and consists of seven 0.1-0.5 cm lin fragments. Entirely submitted in | | | (A1). B. The specimen, labeled "[place], right colon" is received | | | in formalin and consists of six 0.2-0.3 cm lin fragments. Entirely | | | submitted in (B1). C. The specimen, labeled "[place], left colon" | | | is received in formalin and consists of six 0.2-0.3 cm lin-pink | | | fragments. Entirely submitted in (C1). am:AMB:rds PERFORMING | | | LABORATORY: The technical component was performed by [facility] | | | [facility], [address] [place] [address] (Final Inspector And Tester: | | | Kailey Stafford MD; CLIA# [id number]). Professional interpretation was | | | performed by [facility], [facility], [address] | | | [place] [address] (Final Inspector And Tester: Ishaan | | | Anthony Dao; CLIA#: [id number]). Diagnostician: Ishaan Fitzpatrick | | | Sylwia [...] PRN, Nausea, Vomiting, Starting | | | [facility] 01/05/19 at 0924, | | | Recovery/Phase I | | + +---+ | | | + +---+ | ondansetron (ZOFRAN) injection | | | 4 mg 4 mg, Intravenous, ONCE | | | PRN, Nausea, Starting [facility] 01/05/19 | | | at 0924, For 1 dose, | | | Recovery/Phase I | | + +---+ | | | + +---+ documented in this encounter
--- OUTSIDE RECORDS SUMMARY | ~2019-11-12 | XMS | Encounter Summary ---
Demographics + + + | Address | [address] | | | [place] [address] | + + + | Home Phone [...] Providers + +------+ + | Care Paper Production Engineer Name | Role | Phone [...] 2019 | | GASTROENTEROLOGY | [address] | | | | | [address] | [place]. [place] | | | | | [address] | [place] [address] | | | | | [address] | | | | | | [phone] | | | +--------+ + + + [...] Dx); | | | | | [place] [address] | Presence of | | | | | [phone] | permanent cardiac | | | | [...] | | | | | | [place] [address] | | | | | | [phone] | | | | | | | | +--------+ + + + + documented as of this encounter Visit Diagnoses Not on filedocumented in this encounter"
--- OUTSIDE RECORDS SUMMARY | ~2019-11-12 | XMS | Encounter Summary ---
Demographics + + + | Address | [address] | | | [place] [address] | + + + | Home Phone [...] Providers + +------+ + | Care Licensed Nurse Practitioner Name | Role | Phone [...] Refill | | 2013 | | [facility] | DO [address] | | | | | [address] | [place] | | | | | [place] | [address] | | | | | [address] | | | | | | [phone] | | | +--------+--------+ + + + [...] | SunshinecherelleDaljit, | Remote Device | | 2018 | Monitor | | [address] | Interrogation | | | | | [place], | (Primary Dx); | | | | | [place] [address] | Presence of | | | | | [phone] | permanent cardiac | | | | [...] | | | | | | [place] [address] | | | | | | [phone] | | | | | | | | +--------+ + + + + documented as of this encounter Visit Diagnoses Not on filedocumented in this encounter"
--- OUTSIDE RECORDS SUMMARY | ~2019-11-12 | XMS | Encounter Summary ---
Demographics + + + | Address | [address] | | | [place] [address] | + + + | Home Phone [...] Providers + +------+ + | Care Family Dinner Service Specialist Name | Role | Phone | [...] [address] | | | | | [address] | [place] | | | | | [phone] | [address] | | | | | | [phone] | | | | | | | [...] Notes by Kylah Fraser CMA at 04/11/18 0150 Author: Kylah Fraser CMA Service: (none) Author Type: Manager Athletics Filed: 04/19/18 1118 Encounter Date: 04/11/2018 Status: Signed Box Closing Machine Operator: Kylah Fraser CMA (Manager Athletics) See telephone encounter 04/19/18. Karen pfeiffer in [...] Dx); | | | | | [place] [address] | Presence of | | | | | [phone] | permanent cardiac | | | | [...] | | | | | | [place], | | | | | | [place] [address] | | | | | | [phone] | | | | | | | [...]
--- OUTSIDE RECORDS SUMMARY | ~2019-11-12 | XMS | Encounter Summary ---
Demographics + + + | Address | [address] | | | [place] [address] | + + + | Home Phone [...] Team Providers + +------+ + | Care Methodologist Name | Role | Phone | [...] + | 11/26/ | Telephone | [facility] | Silvia, | Appointment (Needs | | 2017 | | CARDIOLOGY [address] | [address] | rescheduled) | | | | [place], | [place], | | | | | [place] [address] | [place] [address] | | | | | [phone] | [phone] | | | | | | | [...] | 11/20/ | Implant | Cardiology | Daljti Singletary, | Remote Device | | 2019 | Monitor | | [address] [place] | Interrogation | | | | | [place], | (Primary Dx); | | | | | [place] [address] | Presence of | | | | | [phone] | permanent cardiac | | | | [...] W | | | | | | [place], | | | | | | [place] [address] | | | | | | [phone] | | | | | | | | +--------+ + + + + documented as of this encounter Visit Diagnoses Not on filedocumented in this encounter"
--- OUTSIDE RECORDS SUMMARY | ~2019-11-12 | XMS | Encounter Summary ---
Demographics + + + | Address | [address] | | | [place] [address] | + + + | Home Phone [...] Providers + +------+ + | Care Network Communications Engineer Name | Role | Phone | [...] + + | 08/19/ | Telephone | [facility] | [place], | Other (patient | | 2016 | | CARDIOLOGY [address] | [address] | having issues with | | | | [place], | [place], | high blood pressure) | | | | [place] [address] | [place] [address] | | | | | [phone] | [phone] | | | | | | | [...] 2019 | Monitor | | MD [address] [place] [address] | Interrogation | | | | | [place], | (Primary Dx); | | | | | [place] [address] | Presence of | | | | | [phone] | permanent cardiac | | | | [...] | | | | | | [place] [address] | | | | | | [phone] | | | | | | | | +--------+ + + + + documented as of this encounter Visit Diagnoses Not on filedocumented in this encounter"
--- OUTSIDE RECORDS SUMMARY | ~2019-11-12 | XMS | Encounter Summary ---
Demographics + + + | Address | [address] | | | [place] [address] | + + + | Home Phone [...] Team Providers + +------+ + | Care Die Stamper Name | Role | Phone | + +------+ + PCP | Unavailable | + +------+ + Encounter Details +--------+ + + + + | Date | Type | Department | Care Team | Description | +--------+ + + + + | 01/27/ | [facility] | [facility] | Jonathan, | | | 2008 | Encounter | MED CTR EMERGENCY | Martell Cr MD [address] | | | | | CENTER [address] | [address] | | | | | [place] | [place] [address] | | | | | [address] | [phone] | | | | | [phone] | | | +--------+ + + + [...] Dx); | | | | | [place] [address] | Presence of | | | | | [phone] | permanent cardiac | | | | [...] | | | | | | [place] [address] | | | | | | [phone] | | | | | | | | +--------+ + + + + documented as of this encounter Visit Diagnoses Not on filedocumented in this encounter"
--- OUTSIDE RECORDS SUMMARY | ~2019-11-12 | XMS | Encounter Summary ---
Demographics + + + | Address | [address] | | | [place] [address] | + + + | Home Phone [...] Providers + +------+ + | Care Certified Veterinary Technician Name | Role | Phone | [...] Provider Unknown | | | | | [place], [place] | [phone] | | | | | [address] | | | | | | [phone] | | | +--------+ + + + [...] + + +---------+ + + | [place]-3 Fatty | CAPS, one capsule by | [...] Dx); | | | | | [place] [address] | Presence of | | | | | [phone] | permanent cardiac | | | | [...] W | | | | | | [place], | | | | | | [place] [address] | | | | | | [phone] | | | | | | | [...]
--- OUTSIDE RECORDS SUMMARY | ~2019-11-12 | XMS | Encounter Summary ---
Demographics + + + | Address | [address] | | | [place] [address] | + + + | Home Phone [...] Team Providers + +------+ + | Care Candles Pourer Name | Role | Phone | [...] + | 01/30/ | Telephone | [facility] | Daljit Singletary, | Other | | 2019 | | CARDIOLOGY [address] | MD [address] [place] | | | | | [place], | [place], | | | | | [place] [address] | [place] [address] | | | | | [phone] | [phone] | | | | | | | [...] 2019 | Monitor | | MD [address] [place] | Interrogation | | | | | [place], | (Primary Dx); | | | | | [place] [address] | Presence of | | | | | [phone] | permanent cardiac | | | | [...] W | | | | | | [place], | | | | | | [place] [address] | | | | | | [phone] | | | | | | | [...] 05/02/2019, Expires: | | | | | modoc coronary | 01/30/2020 | | | | | artery of modoc | | | | | | heart [...] 05/02/2019, Expires: | | | | | [place] coronary | 01/31/2020 | | | | | artery of modoc | | | | | | heart without angina | | | | | | pectoris | | | | | | Hyperlipidemia, | | | | | | mixed | | + +------+--------+ + + documented as of this encounter Visit Diagnoses + + | Diagnosis | + + | Coronary artery disease involving modoc coronary artery of modoc heart without | | angina pectoris - Primary | + + | Hyperlipidemia, mixed Mixed hyperlipidemia | + + documented in this encounter"
--- OUTSIDE RECORDS SUMMARY | ~2019-11-12 | XMS | Encounter Summary ---
Demographics + + + | Address | [address] | | | [place] [address] | + + + | Home Phone [...] Team Providers + +------+ + | Care Cot Assembler Name | Role | Phone | [...] | ER FUP | [address] | [address] | | | | | Procedures | [place], | [place], | | | | | [place] | [place] [address] | [place] [address] | | | | | | Phone: | Phone: | | | | | | [phone] | [phone] | | | | | | Fax: | Fax: | | | | | | [phone] | [phone] | +--------+--------+ + + + + Encounter Details +--------+---------+ + + + | Date | Type | Department | Care Team | Description | +--------+---------+ + + + | 02/11/ | Office | [facility] | Silvia, | Coronary artery | | 2016 | Visit | CARDIOLOGY [address] | Janeen BIOMEDICAL ENGINEER [address] | disease involving | | | | [employer] [place], | [employer] [place], | kenaitze coronary | | | | [place] [address] | [place] [address] | artery of kenaitze | | | | [phone] | [phone] | heart without angina | | | [...] him. He sleeps on [facility] pillow [facility] without any shortness of breath. Overall, he has been doing well otherwise than the [facility] i[facility]. MEDICAL, SURGICAL, AND PERSONAL HISTORY [...] 3RD DOSE, CALL 911 100 tablet 3 [place]-3 Fatty Acids (SALMON OIL-1000 PO) CAPS, [...] was found Confirmed by ANGELA MARADIAGA MD ([id number]) on 01/25/2017 6:45:26 AM LAB RESULTS reviewed during visit today primarily from [facility]: LIPID Lab Results Component Value Date [...] PLTEX 162 11/05/2016 I reviewed records from [facility] [...] is in class I of t he [place] 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 On physical examination there are no signs of fluid overload. 2. Non-critical Coronary artery disease involving kenaitze coronary a rtery of kenaitze heart without angina pectoris: A. Normal exercise [...] to go back in 3 days to [place] for an attempt of ablation under general [...] a normal stable device function. Estimated remaining page hospital longevity is 3.5 years.. 5. Lightheadedness [...] this chart may have been created with Active-Semi voice recognition software. Occasi onal wrong-word or [...] Dx); | | | | | [place] [address] | Presence of | | | | | [phone] | permanent cardiac | | | | [...] | | | | | | [place] [address] | | | | | | [phone] | | | | | | | | +--------+ + + + + documented as of this encounter Visit Diagnoses + + | Diagnosis | + + | Coronary artery disease involving kenaitze coronary artery of kenaitze heart without | | angina pectoris - Primary | + + | Essential hypertension with goal blood pressure less than 130/80 | + + | Hyperlipidemia, mixed Mixed hyperlipidemia | + + documented in this encounter
--- OUTSIDE RECORDS SUMMARY | ~2019-11-12 | XMS | Encounter Summary ---
Demographics + + + | Address | [address] | | | [place] [address] | + + + | Home Phone [...] Team Providers + +------+ + | Care Hydrogen Braze Furnace Operator Name | Role | Phone [...] | | | | CENTER [address] | [address] | | | | | [place] | [place] | | | | | [address] | [address] | | | | | [phone] | | | +--------+ + + + [...] + + + +---------+ + + | [place]-3 Fatty | CAPS, one capsule by | [...] | | | | | | | [place] coronary | | | | | | | artery of [place] | | | | | | | [...] Dx); | | | | | [place] [address] | Presence of | | | | | [phone] | permanent cardiac | | | | [...] | | | | | | [place], | | | | | | [place] [address] | | | | | | [phone] | | | | | | | [...] | | | | | | [employer] | | | | | [...] [address] | [place] | [phone] | | [facility] | | [address] | | | - LABORATORY | | [...] [address] | [place] | [phone] | | [facility] | | [address] | | | - LABORATORY | | [...] in | 12 - 53 U/L | [facility] | | | | use as of January 18, | | [facility] | | | | 2018. Check reference [...] + | [facility] | [address] | [place] | [phone] | | [facility] | | [address] | | | - LABORATORY | | [...] | Juan Diego MICHELLE | | | SAO TOMEAN | RATE,ESTIMATED | | MEDICAL | | | | mL/min/1.59x1Jbqa than | | CENTER - | | [...] | ine Ratio | | | [facility] | | | | | | [...] [address] | [place] | [phone] | | [facility] | | [address] | | | - LABORATORY | | [...] + | [facility] | [address] | [place] | [phone] | | [facility] | | [address] | | | - LABORATORY | | [...] + | [facility] | [address] | [place] | [phone] | | [facility] | | [address] | | | - LABORATORY | | [...] | | | | ANGELA MARADIAGA MD ([id number]) | | | | | | on [...] | | | | | Patient Address: [address] [place] [address] | | | | | | | [place] [address], | | | | | | + + + +------+---+---+ +---+---+ | | | +---+---+ documented in this encounter
--- OUTSIDE RECORDS SUMMARY | ~2019-11-12 | XMS | Encounter Summary ---
Demographics + + + | Address | [address] | | | [place] [address] | + + + | Home Phone [...] Providers + +------+ + | Care Furniture Packer Name | Role | Phone | [...] [place] | | | | | [address] [place], [place] | [address] | | | | | [address] | | | | | | [phone] | | | +--------+ + + + [...] 11/20/ | Implant | Cardiology | Anshujohnsoncherelle Shaistaanshu, | Remote Device | | 2018 | Monitor | | [facility] | Interrogation | | | | | [place], | (Primary Dx); | | | | | [place] [address] | Presence of | | | | | [phone] | permanent cardiac | | | | [...] W | | | | | | [place], | | | | | | [place] [address] | | | | | | [phone] | | | | | | | [...]
--- OUTSIDE RECORDS SUMMARY | ~2019-11-12 | XMS | Encounter Summary ---
Demographics + + + | Address | [address] | | | [place] [address] | + + + | Home Phone [...] Team Providers + +------+ + | Care Hat Band Attacher Name | Role | Phone | + +------+ + PCP | Unavailable | + +------+ + Encounter Details +--------+ + + + + | Date | Type | Department | Care Team | Description | +--------+ + + + + | 06/03/ | Hospital | [facility] | | | | 2008 | Encounter | MED CTR EMERGENCY | | | | | | [place] [address] | | | | | | [place] | | | | | | [address] | | | | | | [phone] | | | +--------+ + + + [...] Dx); | | | | | [place] [address] | Presence of | | | | | [phone] | permanent cardiac | | | | [...] | | | | | | [place], | | | | | | [place] [address] | | | | | | [phone] | | | | | | | | +--------+ + + + + documented as of this encounter Visit Diagnoses Not on filedocumented in this encounter"
--- OUTSIDE RECORDS SUMMARY | ~2019-11-12 | XMS | Encounter Summary ---
Demographics + + + | Address | [address] | | | [place] [address] | + + + | Home Phone [...] Team Providers + +------+ + | Care Outpatient Receptionist Name | Role | Phone | [...] + | 12/21/ | Office | [facility] | [place], | Chest pain (Primary | | 2013 | Visit | CARDIOLOGY [address] | [address] [place] [address] | Dx); Symptomatic | | | | [place], | [place], | PVCs; | | | | [place] [address] | [place] [address] | Hyperlipidemia; | | | | [phone] | [phone] | Hypertension; | | | | | [...] this time to see a specialist in [place] and he was to follow up with [...] MOUTH EVERY DAY 30 table t 5 [place]-3 Fatty Acids (SALMON OIL-1000 PO) CAPS, one [...] to go back in 3 days to [place] for an attempt of ablation under general [...] tolic function, LVEF 65 to 70%. B. [employer] DDD permanent pacemaker implantation on 06/14/09 by [...] made to ensure accuracy; however, inadvertent computerized booster plant operator errors may be pre sent. documented in this encounter Plan of Treatment +--------+ + + + + | Date | Type | Specialty | Care Team | Description | +--------+ + + + + | 11/20/ | Implant | Cardiology | Daljit Singletary, | Remote Device | | 2019 | Monitor | | [address] [place] | Interrogation | | | | | [place], | (Primary Dx); | | | | | [place] [address] | Presence of | | | | | [phone] | permanent cardiac | | | | [...] | | | | | | [place], | | | | | | [place] [address] | | | | | | [phone] | | | | | | | [...] of unspecified type of vessel, | | shoshone-paiute or graft | + + documented in this encounter
--- OUTSIDE RECORDS SUMMARY | ~2019-11-12 | XMS | Encounter Summary ---
Demographics + + + | Address | [address] | | | [place] [address] | + + + | Home Phone [...] Providers + +------+ + | Care Sugar Drier Name | Role | Phone | + [...] unspecified | [address] | [address] | | | | | type | [address] | [place], | | | | | Procedures | [place], | [place] | | | | | [place] Nuclear | [place] [address] | [address] | | | | | Stress Test | Phone: | Phone: | | | | | (Vasodilator | [phone] | [phone] | | | | | ) CHG | Fax: | Fax: | | | | | MYOCARDIAL | [phone] | [phone] | | | | | SPECT | | | | | | | MULTIPLE | | | | | | | STUDIES DC | | | | | | | CV STRS TST | | | | | | | XERS&/OR RX | | | | | | | CONT ECG W/O | | | | | | | I&R DC | | | | | | | [...] unspecified | [address] | [address] | | | | | type | [address] | [place], | | | | | Procedures | [place], | [place] | | | | | [place] | [place] [address] | [address] | | | | | Stress Test | Phone: | Phone: | | | | | (Vasodilator | [phone] | [phone] | | | | | ) CHG | Fax: | Fax: | | | | | MYOCARDIAL | [phone] | [phone] | | | | | SPECT | | | | | | | MULTIPLE | | | | | | | STUDIES DC | | | | | | | CV STRS TST | | | | | | | XERS&/OR RX | | | | | | | CONT ECG W/O | | | | | | | I&R DC | | | | | | | [...] + + | 07/21/ | Hospital | [facility] | Daljit Singletary, | Chest pain, | | 2018 | Encounter | MED CTR NUCLEAR | MD [address] | unspecified type | | | | MEDICINE [address] [place], | | | | | [place], | [place] [address] | | | | | [place] [address] | [phone] | | | | | [phone] | | | | | | | Order Checker Packer ProcesserPavel | | +--------+ + + + + [...] + + + +---------+ + + | [place]-3 Fatty | CAPS, one capsule by | [...] Dx); | | | | | [place] [address] | Presence of | | | | | [phone] | permanent cardiac | | | | [...] W | | | | | | [place], | | | | | | [place] [address] | | | | | | [phone] | | | | | | | [...] | | | | | doctor, Starting [facility] 07/21/18 at | | | | [...] | | | | | | Starting [facility] 07/21/18 at 0822, For | | | | | | | 1 dose, Nuclear Medicine | | | | | | + +-------+ + +---+---+ +---+---+ | | | +---+---+ documented in this encounter"
--- OUTSIDE RECORDS SUMMARY | ~2019-11-12 | XMS | Encounter Summary ---
Demographics + + + | Address | [address] | | | [place] [address] | + + + | Home Phone [...] Team Providers + +------+ + | Care Narrow Fabrics Weaver Name | Role | Phone | [...] + + | 02/15/ | Office | [facility] | Jay Cohn PA | DIDIER (obstructive | | 2012 | Visit | SLEEP DISORDER [address] | [address] | sleep apnea) | | | | [address] [place] | [place] | (Primary Dx) | | | | [place] [address] | [address] | | | | | [phone] | | | +--------+---------+ + + + [...] PDTGo to [facility] for replacement equipment including: Nasal pillows [...] pillows obtained from: [facility] [place] pressure is: 13 cm CPAP download shows [...] to go to [facility] [place] to replace his equipment, but it had [...] to go to [facility] [place] to g et a new mask and filter. He is to work toward wearing his CPAP 100% of the time he is asle ep. I will follow up again in 1 month, sooner prn. Fifteen minutes were spent [id number], wi th the majority of time spent [...] Dx); | | | | | [place] [address] | Presence of | | | | | [phone] | permanent cardiac | | | | [...] W | | | | | | [place], | | | | | | [place] [address] | | | | | | [phone] | | | | | | | | +--------+ + + + + documented as of this encounter Visit Diagnoses + + | Diagnosis | + + | DIDIER (obstructive sleep apnea) - Primary Obstructive sleep apnea (adult) (pediatric) | + + documented in this encounter"
--- OUTSIDE RECORDS SUMMARY | ~2019-11-12 | XMS | Encounter Summary ---
Demographics + + + | Address | [address] | | | [place] [address] | + + + | Home Phone [...] Team Providers + +------+ + | Care Chuck Splitter Name | Role | Phone | + +------+ + | Kirk French MD | PCP | | + +------+ + Encounter Details +--------+ + + + + | Date | Type | Department | Care Team | Description | +--------+ + + + + | 01/05/ | Hospital | [facility] | Emmanuel Daniel MD | Functional diarrhea | | 2019 | Encounter | MED CTR MP INTRA OP | [address] [place] [address], [place] | (Primary Dx); Weight | | | | [address] | [address] [place], [place] | loss | | | | [place], [place] | [address] | | | | | [address] | | | | | | [phone] | | | +--------+ + + + [...] for a few hours. Date Last Reviewed: 09/22/201619997115-5763 [employer]. [address] [place] [address], [place] [address]. All righ ts reserved. This information is [...] vomiting, or vomiting blood Date Last Reviewed: 05/22/201619992052-7610 [employer]. [address] [place] [address]. All [facility] ts reserved. This information is not [...] You can't be awakened Date Last Reviewed: 09/08/201619999140-8803 [employer]. [address] [place] [address], [place] [address]. All righ ts reserved. This information is [...] + + +---------+ + + | [place]-3 Fatty | CAPS, one capsule by | [...] Dx); | | | | | [place] [address] | Presence of | | | | | [phone] | permanent cardiac | | | | [...] | | | | | | [place], | | | | | | [place] [address] | | | | | | [phone] | | | | | | | [...] | REFERENCE LAB | | [place] [id number] Credit Risk Analyst: Miguel Galarza MD, Phone: | ARSH - KINA | | [phone] | | + + + + + + + + | Performing | Address | City/State/Zipcode | Phone Number | | Organization | | | | + + + + + | REFERENCE LAB | [address] | [place] [address] | [phone] | | [facility] | Drive [...] + | Performed at: 01 - [facility] [place] [address], | REFERENCE LAB | | [place] [id number] Credit Risk Analyst: Miguel Galarza MD, Phone: | ARSH CASTANON | | [phone] | | + + + + + + + + | Performing | Address | City/State/Zipcode | Phone Number | | Organization | | | | + + + + + | REFERENCE LAB | [address] [address] | [place] [address] | [phone] | | ARSH CASTANON | Drive [facility] | | | + + + + [...] [address] | [place] | [phone] | | [facility] | | [address] | | | - LABORATORY | | [...] [address] | [place] | [phone] | | [facility] | | [address] | | | - LABORATORY | | [...] | [facility] | [address] | [place] | [phone] | | [facility] | | [address] | | | - LABORATORY | | [...] | Antigen, | | | [address] | | | Stool | | [...] [address] | [place] | [phone] | | [facility] | | [address] | | | - LABORATORY | | [...] [address] | [place] | [phone] | | [facility] | | [address] | | | - LABORATORY | | [...] ST. | [address] | [place], [place] | [phone] | | [facility] | | [address] | | | - LABORATORY | | | | + + + + + DAVIAN (01/05/2019 8:36 AM PST) + + | Specimen | + + | | + + + + -+ | Narrative | Performed At | + + -+ | | [facility] | | GastroenterologyPatient Name: Moe Venegas Date: | PROVATION | | 01/05/2019 8:36 AMMRN: [id number] #: [id number] of : | | | 9Admit Type: AmbulatoryAge: 58Room: [facility] 01Gender: MaleNote | | | Status: FinalizedAttending MD: Emmanuel Daniel , [facility]cedure: | | | Upper GI endoscopyIndications: Diarrhea, Weight | | | lossProviders: Emmanuel Daniel MD, Heidi Akinsfield, | | | RN, Kim Hicks, Paraffin Plant Sweater Operator, | | | Jarett Barakat MD [...] physician, the nurse, the anesthesiologist and the fabrication technician | | | in the endoscopy [...] | | Imaging was performed using the [employer] | | | Endoscopy (FICE) [...] Scope In: 8:43:57 AMScope Out: 8:49:50 AM [facility]. | | | [facility], [address] [place] [address] | | | [phone] | | |Recommendation: | | | - [...] Out: 8:49:50 AM | | | [facility], [address], [place] | | | [address] | | + + -+ + +---------+ [...] | PROVATION | | 01/05/2019 8:36 AMMRN: [id number] #: [id number] of : | | | 9Admit Type: AmbulatoryAge: 58Room: [facility] 01Gender: MaleNote | | | Status: FinalizedAttending MD: Emmanuel Daniel , [facility]rocedure: | | | ColonoscopyIndications: Clinically significant diarrhea of | | | unexplained origin, Weight lossProviders: | | | Emmanuel Daniel MD, Heidi An RN, [place] | | | Fiorella Hicks, Paraffin Plant Sweater Operator, Jarett Alejo | | | MD [...] | | | the anesthesiologist and the fabrication technician in the endoscopy suite. | | [...] AMScope Out: | | | 9:06:[address] [facility], [address] [place] [address], | | | [place] [address] | | | - Discharge patient to [...] |Scope Out: 9:06:28 AM | | | [facility], [address] [place] [address], [place], [place] | | | [address] | | + + -+ + +---------+ [...] | | | (atherosclerotic heart disease of [place] coronary artery without | | | angina [...] chronic or | | | microscopic colitis. BES:[facility]:C3NR GROSS DESCRIPTION: A. The | | | specimen, labeled "Laura, duodenal biopsy" is received in formalin | | | and consists of seven 0.1-0.5 cm lin fragments. Entirely submitted in | | | (A1). B. The specimen, labeled "[place], right colon" is received | | | in formalin and consists of six 0.2-0.3 cm lin fragments. Entirely | | | submitted in (B1). C. The specimen, labeled "[place], left colon" | | | is received in formalin and consists of six 0.2-0.3 cm lin-pink | | | fragments. Entirely submitted in (C1). am:AMB:portillo PERFORMING | | | LABORATORY: The technical component was performed by [facility] | | | [facility], [address] [place] [address] (Splunk Dashboard Developer: | | | Kailey Stafford MD; CLIA# [id number]). Professional interpretation was | | | performed by [employer], [facility], [address] | | [address] [place] [address] ([employer]unk Dashboard Developer: Ishaan Dao M.D.; LAYNE#: [id number]). Diagnostician: Ishaan Bay | Sylwia WINKLER Pathologist Electronically Signed 01/06/2019 [...] | | Starting [facility] 01/05/19 at 0924, | | | For [...] ONCE | | | PRN, Nausea, Starting [facility] 01/05/19 | | | at 0924, For 1 dose, | | | Recovery/Phase I | | + +---+ | | | + +---+ documented in this encounter
--- OUTSIDE RECORDS SUMMARY | ~2019-11-12 | XMS | Encounter Summary ---
Demographics + + + | Address | [address] | | | [place] [address] | + + + | Home Phone [...] Team Providers + +------+ + | Care Live Hanger Name | Role | Phone | [...] + + | 09/01/ | [facility] | [place], | Ascending thoracic | | 2015 | Visit | CARDIOLOGY [address] | [address] | aortic aneurysm | | | | [place], | [place], | ([facility]) (Primary Dx); | | | | [place] [address] | [place] [address] | Coronary artery | | | | [phone] | [phone] | disease involving | | | | | | poarch coronary | | | | | | artery of poarch | | | | | | heart [...] of non-critical coronary artery d isease involving poarch coronary artery of poarch heart without angina pectoris, essential h ypertension, [...] episode of chest pain while nelly ng [facility], so he took some sublingual [...] Preventative health care Coronary artery disease involving poarch coronary artery of poarch heart without angina pectoris Cannabis abuse, daily [...] by mouth every evening 90 tablet 3 [facility] Natural [facility] (OSTEO BI-FLEX/5-LOXIN ADVANCED PO) Take [...] 3rd dose, call 911 100 tablet 3 [place]-3 Fatty Acids (SALMON OIL-1000 PO) CAPS, one capsule by mouth daily twice daily ONE TOUCH DELICA LANCETS [facility] Check glucose as needed for hypoglycemia [...] RESULTS reviewed during visit today primarily from [facility]: LIPID Lab Results Component Value [...] PLTEX 129* 05/12/2016 I reviewed records from [facility] for office visit on 06/2016 [facility] ch is summarized in the HPI. 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 On physical examination there are no signs of fluid overload. The plan will be to lose weight, modify portion control, start exercising, limit sodium in take and we will start losartan 25 mg once a day with a close monitoring of blood pressure. 2. Non-critical Coronary artery disease involving poarch coronary artery of poarch heart [facility] angina pectoris: A. Normal exercise sestamibi [...] to go back in 3 days to [place] for an attempt of ablation under general [...] this chart may have been created with [employer] voice recognition software. Occasi onal wrong-word or [...] Interrogation | | | | | [place], | (Primary Dx); | | | | | [place] [address] | Presence of | | | | | [phone] | permanent cardiac | | | | [...] W | | | | | | [place], | | | | | | [place] [address] | | | | | | [phone] | | | | | | | [...] + + | Coronary artery disease involving poarch coronary artery of poarch heart without | | angina pectoris | + + | Essential hypertension with goal blood pressure less than 130/80 | + + | Hyperlipidemia, mixed Mixed hyperlipidemia | + + documented in this encounter
--- OUTSIDE RECORDS SUMMARY | ~2019-11-12 | XMS | Encounter Summary ---
Demographics + + + | Address | [address] | | | [place] [address] | + + + | Home Phone [...] Team Providers + +------+ + | Care Fundraising Specialist Name | Role | Phone | + +------+ + PCP | Unavailable | + +------+ + Encounter Details +--------+ + + + + | Date | Type | Department | Care Team | Description | +--------+ + + + + | 09/08/ | [facility] | [facility] | Naresh Mckeon | | | 1998 | Encounter | MED CTR SLEEP | MD [address] | | | | | CENTER [address] | [place] [place] | | | | | [place] | [place] [address] | | | | | [address] | [phone] | | | | | [phone] | | | +--------+ + + + [...] Dx); | | | | | [place] [address] | Presence of | | | | | [phone] | permanent cardiac | | | | [...] W | | | | | | [place], | | | | | | [place] [address] | | | | | | [phone] | | | | | | | | +--------+ + + + + documented as of this encounter Visit Diagnoses Not on filedocumented in this encounter"
--- OUTSIDE RECORDS SUMMARY | ~2019-11-12 | XMS | Encounter Summary ---
Demographics + + + | Address | [address] | | | [place] [address] | + + + | Home Phone [...] Providers + +------+ + | Care Complaint Evaluation Supervisor Name | Role | Phone [...] | | | pain | [address] | [address] | | | | | Procedures | [place] | [place], | | | | | [place] Nuclear | [place], [place] | [place] | | | | | Stress Test | [address] | [address] | | | | | (Vasodilator | Phone: | Phone: | | | | | ) CHG | [phone] | [phone] | | | | | MYOCARDIAL | Fax: | Fax: | | | | | SPECT | [phone] | [phone] | | | | | MULTIPLE | [...] 2012 | | CARDIOLOGY [address] | AIRCRAFT MECHANIC ARMAMENT [address] | interactions, chest | | | | [place], | [place], [place] | pain) | | | | [place] [address] | [address] | | | | | [phone] | | | +--------+ + + + [...] 2019 | Monitor | | MD [address] | Interrogation | | | | | [place], | (Primary Dx); | | | | | [place] [address] | Presence of | | | | | [phone] | permanent cardiac | | | | [...] | | | | | | [place] [address] | | | | | | [phone] | | | | | | | | +--------+ + + + + documented as of this encounter Results [place] Nuclear Stress Test (Vasodilator) (12/07/2013 7:01 AM PST) + + | Specimen | + + | | + + + + + | Narrative | Performed At | + + + | [facility] Diagnostic Imaging | [place] | | Department [address] [place] [address] [facility] | | [ rep [address]] [ rep [facility] | | st zip] Signed | - IMAGING | | | | | Patient Name: MOE GAY | | | Physician: JACKLYN : 1960 Age: 53 Sex: M Unit | | | #: [id number] Exam Date: 12/06/13 Location: | | | [facility]: [id number] Page: | | | %(RAD)RES..mtdd.print.filter("pg") of %(RAD) | | | RES..mtdd.print.filter("tpg") | | | | | | Accession Number: [id number] | | | PERSANTINE SESTAMIBI STRESS TEST, [...] Transcribed Date/Time: 12/07/2013 08:18 | | | Pole Setter: <<Signature on File>> | | | | | | Daljit Singletary MD [facility] FAS12/07/13 1321 <Electronically signed | | | by Daljit Singletary MD, [facility], [facility], ADELINE, [facility]> Daljit | | | MD Gemini [facility] ADELINE 12/07/13 0701 Pole Setter: Jessica | | | Drerjhcmsdjbi76/16/14 0818 [address] | | + + + + + + + + | Performing | Address | City/State/Zipcode | Phone Number | | Organization | | | | + + + + + | [facility] | [address] | [place] | [phone] | | [facility] | | [address] | | | - IMAGING | | | | + + + + + documented in this encounter Visit Diagnoses + + | Diagnosis | + + | Other chest pain - Primary | + + documented in this encounter
--- OUTSIDE RECORDS SUMMARY | ~2019-11-12 | XMS | Encounter Summary ---
Demographics + + + | Address | [address] | | | [place] [address] | + + + | Home Phone [...] Team Providers + +------+ + | Care Headlight Adjuster Name | Role | Phone | [...] CARDIOLOGY [address] | MD [address] [place] | reprogramming/check | | | | [place], | [place], | DO NOT DELETE | | | | [place] [address] | [place] [address] | (Primary Dx); | | | | [phone] | [phone] | Pacemaker - | | | | [...] Dx); | | | | | [place] [address] | Presence of | | | | | [phone] | permanent cardiac | | | | [...] W | | | | | | [place], | | | | | | [place] [address] | | | | | | [phone] | | | | | | | [...]
--- OUTSIDE RECORDS SUMMARY | ~2019-11-12 | XMS | Encounter Summary ---
Demographics + + + | Address | [address] | | | [place] [address] | + + + | Home Phone [...] Providers + +------+ + | Care Human Factors Advisor Lead Name | Role | Phone | [...] | 10/09/ | Telephone | [facility] | Michael Amanda, | Other | | 2012 | | [facility]IC[facility] [place] | DO [address] | | | | | [address] | [place] | | | | | [place] | [address] | | | | | [address] | | | | | | [phone] | | | +--------+ + + + [...] Interrogation | | | | | [place], | (Primary Dx); | | | | | [place] [address] | Presence of | | | | | [phone] | permanent cardiac | | | | [...] W | | | | | | [place], | | | | | | [place] [address] | | | | | | [phone] | | | | | | | | +--------+ + + + + documented as of this encounter Visit Diagnoses Not on filedocumented in this encounter"
--- OUTSIDE RECORDS SUMMARY | ~2019-11-12 | XMS | Encounter Summary ---
Demographics + + + | Address | [address] | | | [place] [address] | + + + | Home Phone [...] Providers + +------+ + | Care Skiver Hand Name | Role | Phone | [...] | CARDIOLOGY [address] | [address] | Interrogation | | | | [place], | [place], | (Primary Dx); | | | | [place] [address] | [place] [address] | Presence of | | | | [phone] | [phone] | permanent cardiac | | | | [...] Dx); | | | | | [place] [address] | Presence of | | | | | [phone] | permanent cardiac | | | | [...] W | | | | | | [place], | | | | | | [place] [address] | | | | | | [phone] | | | | | | | [...]
--- OUTSIDE RECORDS SUMMARY | ~2019-11-12 | XMS | Encounter Summary ---
Demographics + + + | Address | [address] | | | [place] [address] | + + + | Home Phone [...] Providers + +------+ + | Care Merchandise Complaint Adjuster Name | Role | Phone | [...] [address] | | | | | [place], | [place], | | | | | [place] [address] | [place] [address] | | | | | [phone] | [phone] | | | | | | | [...] | 2018 | Monitor | | [address] [place] | Interrogation | | | | | [place], | (Primary Dx); | | | | | [place] [address] | Presence of | | | | | [phone] | permanent cardiac | | | | [...] W | | | | | | [place], | | | | | | [place] [address] | | | | | | [phone] | | | | | | | | +--------+ + + + + documented as of this encounter Visit Diagnoses Not on filedocumented in this encounter"
--- OUTSIDE RECORDS SUMMARY | ~2019-11-12 | XMS | Encounter Summary ---
Demographics + + + | Address | [address] | | | [place] [address] | + + + | Home Phone [...] Providers + +------+ + | Care Firer Electric Locomotive Name | Role | Phone | + +------+ + | Michael Amanda DO | PCP | | + +------+ + Encounter Details +--------+ + + + + | Date | Type | Department | Care Team | Description | +--------+ + + + + | 10/01/ | Hospital | [facility] | Mary Bradshaw | | | 2013 | Encounter | [facility] | Guy Larkin MD | | | | | [address] [place] | [address] | | | | | [place], [place] | [place], [place] | | | | | [address] | [address] | | | | | [phone] | | | +--------+ + + + [...] + + + +---------+ + + | [place]-3 Fatty | CAPS, one capsule by | [...] Dx); | | | | | [place] [address] | Presence of | | | | | [phone] | permanent cardiac | | | | [...] | | | | | | [place], | | | | | | [place] [address] | | | | | | [phone] | | | | | | | [...] + | MISCELLANEOUS LAB | | | [phone] | + +---------+ + + | MISCELANIOUS LAB | | | [phone] | + +---------+ + + documented in this encounter Visit Diagnoses Not on filedocumented in this encounter"
--- OUTSIDE RECORDS SUMMARY | ~2019-11-12 | XMS | Encounter Summary ---
Demographics + + + | Address | [address] | | | [place] [address] | + + + | Home Phone [...] Team Providers + +------+ + | Care Adolescent Counselor Name | Role | Phone | [...] + + | 12/14/ | Telephone | [facility] | Emmanuel Daniel MD | Follow-up, Office | | 2019 | | GASTROENTEROLOGY | [address], [place] | Visit (wants to | | | | [address] [place] | [address] [place] | cancel his office | | | | [address] [place] | [address] | appointment today) | | | | [address] | | | | | | [phone] | | | +--------+ + + + [...] Interrogation | | | | | [place], | (Primary Dx); | | | | | [place] [address] | Presence of | | | | | [phone] | permanent cardiac | | | | [...] | | | | | | [place] [address] | | | | | | [phone] | | | | | | | | +--------+ + + + + documented as of this encounter Visit Diagnoses Not on filedocumented in this encounter"
--- OUTSIDE RECORDS SUMMARY | ~2019-11-12 | XMS | Encounter Summary ---
Demographics + + + | Address | [address] | | | [place] [address] | + + + | Home Phone [...] Team Providers + +------+ + | Care Mortising Machine Operator Name | Role | Phone [...] W | Dx) | | | | [place] [address] | [address] [place] | | | | | [place], [place] | [place] [address] | | | | | [address] | [phone] | | | | | [phone] | | | +--------+ + + + [...] + + + +---------+ + + | [place]-3 Fatty | CAPS, one capsule by | [...] 2019 | Monitor | | [address] | Interrogation | | | | | [place], | (Primary Dx); | | | | | [place] [address] | Presence of | | | | | [phone] | permanent cardiac | | | | [...] | | | | | | [place], | | | | | | [place] [address] | | | | | | [phone] | | | | | | | [...] | | | 12:41? | | | [place] | | | , | | | FREDER | | | ICK | | | W?MRN: | | | | | | [id number] | | | [id number] | | | his | | | [...] | | | ent/60 | | | [id number] | | | -5586- | | | [...] | | | St. | | | [place] | | | y H. | | [...] | | | St. | | | [place] | | | y H. | | [...] | | | St. | | | [place] | | | y H. | | [...] | | | St. | | | [place] | | | y H. | | [...] | | | St. | | | [place] | | | y | | | [...] | | | ext. | | | [address] | | | or go | | [...] + | [facility] | [address] | [place] | [phone] | | [facility] | | [address] | | | - LABORATORY | | [...] + | [address] [facility] | [address] | [place] | [phone] | | [facility] | | [address] | | | - LABORATORY | | [...] 10 | 7 - 18 mg/dL | [facility] [...] mL/min/1.73m2 | [facility] | | | [facility] [place] | RATE,ESTIMATED | | MEDICAL | | | | mL/min/1.99m0Rqfz than | | CENTER - | | [...] [address] | [place] | [phone] | | [facility] | | [address] | | | - LABORATORY | | | | + + + + + CBC with Differential (02/01/2018 2:14 PM PDT) + +-------+ + + + | Component | Value | Ref Range | Performed | Pathologist | | | | | At | Signature | + +-------+ + + + | WBC | 6.7 | 4.0 - 11.0 K/uL | [facility] | | | | | [facility] | | | | | | MEDICAL | | | | | | CENTER - | | | | | | LABORATORY | | + +-------+ + + + | RBC | 4.98 [...] [address] | [place] | [phone] | | [facility] | | [address] | | | - LABORATORY | | | | + + + + + documented in this encounter Visit Diagnoses + + | Diagnosis | + + | Bronchitis - Primary Bronchitis, not specified as acute or chronic | + + documented in this encounter"
--- OUTSIDE RECORDS SUMMARY | ~2019-11-12 | XMS | Encounter Summary ---
Demographics + + + | Address | [address] | | | [place] [address] | + + + | Home Phone [...] Team Providers + +------+ + | Care Filing Machine Operator Name | Role | Phone [...] | type | [address] | [address] | | | | | Procedures | ST [place] | [place], | | | | | FUP | [place], [place] | [place] [address] | | | | | | [address] | Phone: | | | | | | Phone: | [phone] | | | | | | [phone] | Fax: | | | | | | Fax: | [phone] | | | | | | [phone] | | +--------+ + + + + [...] | | | | CENTER [address] | [address] [place] | (Primary Dx) | | | | [place], [place] | [place] [address] | | | | | [address] | [phone] | | | | | [phone] | | | +--------+ + + + [...] cannot be sent through Care Everywhere.Angina, Stable (Tongan)documented in this encounter Medications at Time of [...] + + + +---------+ + + | [place]-3 Fatty | CAPS, one capsule by [...] Dx); | | | | | [place] [address] | Presence of | | | | | [phone] | permanent cardiac | | | | [...] W | | | | | | [place], | | | | | | [place] [address] | | | | | | [phone] | | | | | | | [...] | | | | ANGELA MARADIAGA MD ([id number]) | | | | | | on [...] | | | | | | [employer] | | | | | [...] | [address] | [place] | [phone] | | [facility] | | [address] | | | - LABORATORY | | [...] [address] | [place] | [phone] | | [facility] | | [address] | | | - LABORATORY | | [...] | | | | | | [employer] | | | | | [...] + | [facility] | [address] | [place] | [phone] | | [facility] | | [address] | | | - LABORATORY | | [...] | | | FILTRATION | mL/min/1.73m2 | [facility] | | | [facility] | RATE,ESTIMATED | | MEDICAL | | | | mL/min/1.53c8Wkuu than | | CENTER - | | [...] 9.3 | 8.3 - 10.5 | [facility] | | | | | mg/dL | [facility] | | | | | | MEDICAL | | | | | | CENTER - | | | | | | LABORATORY | | + + + + + + | Albumin | 4.2 | 3.2 - 5.0 g/dL | [facility] | | | | | | [facility] | | | | | [...] | | ine Ratio | | | [facility] | | | | | [...] [address] | [place] | [phone] | | [facility] | | [address] | | | - LABORATORY | | [...] [address] | [place] | [phone] | | [facility] | | [address] | | | - LABORATORY | | [...] | | | | ANGELA MARADIAGA MD ([id number]) | | | | | | on [...]
--- OUTSIDE RECORDS SUMMARY | ~2019-11-12 | XMS | Encounter Summary ---
Demographics + + + | Address | [address] | | | [place] [address] | + + + | Home Phone [...] Team Providers + +------+ + | Care Yarn Skeins Examiner Name | Role | Phone | [...] Provider Unknown | | | | | [place], [place] | [phone] | | | | | [address] | | | | | | [phone] | | | +--------+ + + + [...] 2019 | Monitor | | MD [address] [place] | Interrogation | | | | | [place], | (Primary Dx); | | | | | [place] [address] | Presence of | | | | | [phone] | permanent cardiac | | | | [...] W | | | | | | [place], | | | | | | [place] [address] | | | | | | [phone] | | | | | | | [...]
--- OUTSIDE RECORDS SUMMARY | ~2019-11-12 | XMS | Encounter Summary ---
Demographics + + + | Address | [address] | | | [place] [address] | + + + | Home Phone [...] Team Providers + +------+ + | Care Chairman Name | Role | Phone | + [...] + + | 02/15/ | Office | [facility] | Jay Cohn PA | DIDIER (obstructive | | 2012 | Visit | SLEEP DISORDER [address] | [address] | sleep apnea) | | | | [address] [place] | [place] | (Primary Dx) | | | | [place] [address] | [address] | | | | | [phone] | | | +--------+---------+ + + + [...] AM PDTGo to [facility] including: Nasal [...] pillows obtained from: [facility] [place] pressure is: 13 cm CPAP download shows [...] to go to [facility] in [place] to replace his equipment, but it had [...] to go to [facility] in [place] to g et a new mask and filter. He is to work toward wearing his CPAP 100% of the time he is asle ep. I will follow up again in 1 month, sooner prn. Fifteen minutes were spent [id number], wi th the majority of time spent [...] Dx); | | | | | [place] [address] | Presence of | | | | | [phone] | permanent cardiac | | | | | | pacemaker; | | | | | | Sinoatrial node | | | | | | dysfunction ([facility]) | | | | | | with symptomatic | | | | | | bradycardia | +--------+ + + + + | 01/01/ | Office | Cardiology | [place], | | | 2019 | Visit | | PARISA [place] [address] | | | | | | [place], | | | | | | [place] [address] | | | | | | [phone] | | | | | | | | +--------+ + + + + documented as of this encounter Visit Diagnoses + + | Diagnosis | + + | DIDIER (obstructive sleep apnea) - Primary Obstructive sleep apnea (adult) (pediatric) | + + documented in this encounter"
--- OUTSIDE RECORDS SUMMARY | ~2019-11-12 | XMS | Encounter Summary ---
Demographics + + + | Address | [address] | | | [place] [address] | + + + | Home Phone [...] | + + +---------+ + | Maria Iasbel Sanchez | ECON | Unknown | | + + +---------+ + Care Team Providers + +------+ + | Care Card Runner Name | Role | Phone | [...] [place], | | | | | | [place] [address] | | | | | | [phone] | | | +--------+ + + + [...] | 2019 | Monitor | | [address] | Interrogation | | | | | [place], | (Primary Dx); | | | | | [place] [address] | Presence of | | | | | [phone] | permanent cardiac | | | | [...] | | | | | | [place] [address] | | | | | | [phone] | | | | | | | | +--------+ + + + + documented as of this encounter Visit Diagnoses Not on filedocumented in this encounter"
--- OUTSIDE RECORDS SUMMARY | ~2019-11-12 | XMS | Encounter Summary ---
Demographics + + + | Address | [address] | | | [place] [address] | + + + | Home Phone [...] Team Providers + +------+ + | Care Armature Repairer Name | Role | Phone | + +------+ + | Kirk French MD | PCP | | + +------+ + Encounter Details +--------+ + + + + | Date | Type | Department | Care Team | Description | +--------+ + + + + | 12/24/ | Anesthesia | [facility] | Jarett Barakat | | | 2018 | Event | MED CTR MP INTRA OP | P, MD [address] | | | | | [address] | ST [place], [place] | | | | | [place], [place] | [address] | | | | | [address] | [phone] | | | | | [phone] | | | | | | | Arthur Wesley, | | | | | | [address] | | | | | | [place], [place] | | | | | | [address] | | | | | | | [...] 12/24/17 1435 by | | eral | tdmp-nvn-viypso catheter system; | Desmond Teresa RN | [...] Dx); | | | | | [place] [address] | Presence of | | | | | [phone] | permanent cardiac | | | | [...] | | | | | | [place] [address] | | | | | | [phone] | | | | | | | [...]
--- OUTSIDE RECORDS SUMMARY | ~2019-11-12 | XMS | Encounter Summary ---
Demographics + + + | Address | [address] | | | [place] [address] | + + + | Home Phone [...] Providers + +------+ + | Care Fuel House Attendant Name | Role | Phone | + +------+ + | Kirk French MD | PCP | | + +------+ + Encounter Details +--------+---------+ + + + | Date | Type | Department | Care Team | Description | +--------+---------+ + + + | 01/05/ | Surgery | [facility] | Emmanuel Daniel MD | EGD | | 2019 | | MED CTR MP INTRA OP | [address], [place] | | | | | [address] | [address] [place], [place] | | | | | [place], [place] | [address] | | | | | [address] | | | | | | [phone] | | | +--------+---------+ + + + [...] for a few hours. Date Last Reviewed: 09/22/201619991892-1121 [employer] [address] [place] [address]. All righ ts reserved. This information is [...] vomiting, or vomiting blood Date Last Reviewed: 05/22/201619995613-7634 [employer] [address] [place] [address]. All righ ts reserved. This information is [...] You can't be awakened Date Last Reviewed: 09/08/201619993517-0580 [employer] [address] [place] [address], [place] [address]. All righ ts reserved. This information is [...] + + + +---------+ + + | [place]-3 Fatty | CAPS, one capsule by | [...] Interrogation | | | | | [place], | (Primary Dx); | | | | | [place] [address] | Presence of | | | | | [phone] | permanent cardiac | | | | [...] W | | | | | | [place], | | | | | | [place] [address] | | | | | | [phone] | | | | | | | [...] | REFERENCE LAB | | [place] [phone] Roll Operator: Miguel Galarza MD, Phone: | [facility] | | [phone] | | + + + + + + + + | Performing | Address | City/State/Zipcode | Phone Number | | Organization | | | | + + + + + | REFERENCE LAB | [address] | [place] [address] | [phone] | | [facility] | Drive [...] + + | Performed at: 01 - [facility] [address], | REFERENCE LAB | | [place], [place] [id number] Roll Operator: Miguel Galarza MD, Phone: | [facility] | | [phone] | | + + + + + + + + | Performing | Address | City/State/Zipcode | Phone Number | | Organization | | | | + + + + + | REFERENCE LAB | [address] | [place] [address] | [phone] | | [facility] | Drive [...] [address] | [place] | [phone] | | [facility] | | [address] | | | - LABORATORY | | [...] [address] | [place] | [phone] | | [facility] | | [address] | | | - LABORATORY | | [...] + | [facility] | [address] | [place] | [phone] | | [facility] | | [address] | | | - LABORATORY | | [...] [address] | [place] | [phone] | | [facility] | | [address] | | | - LABORATORY | | [...] + | [facility] | [address] | [place] | [phone] | | [facility] | | [address] | | | - LABORATORY | | [...] ST. | [address] | [place], [place] | [phone] | | [facility] | | [address] | | | - LABORATORY | | | | + + + + + EGD (01/05/2019 8:36 AM PST) + + | Specimen | + + | | + + + + -+ | Narrative | Performed At | + + -+ | | [facility] | | GastroenterologyPatient Name: Moe Venegas Date: | [facility]ATION | | 01/05/2019 8:36 AMMRN: [id number] #: [id number] of : | | | 9Admit Type: AmbulatoryAge: 58Room: [facility] 01Gender: MaleNote | | | Status: FinalizedAttending MD: Emmanuel Daniel , [facility]rocedure: | | | Upper GI endoscopyIndications: Diarrhea, Weight | | | lossProviders: Emmanuel Daniel MD, Heidi Gonzalezchfield, | | | RN, Kim Hicks, Instructor Tap Dancing, | | | Jarett Barakat MD (Anesthesia [...] physician, the nurse, the anesthesiologist and the conveyor technician | | | in the endoscopy [...] | | Imaging was performed using the [employer] | | | Endoscopy (FICE) [...] | | | results in 1 week.Emmanuel Dainel MD01/05/2019 9:20:28 AMThis report | | | has been signed electronically.Number of Addenda: 0Note Initiated On: | | | 01/05/2019 8:36 AMTotal Procedure Duration: 0 hours 5 minutes 53 | | | seconds Scope In: 8:43:57 AMScope Out: 8:49:50 AM Abie . | | | [facility], [address] [place] [address] | | | [phone] | | |Recommendation: | | | - [...] Out: 8:49:50 AM | | | [facility]ly [facility], [facility] [address] [place], [place] | | | [address] | | + + -+ + +---------+ + + | Performing | Address | City/State/[facility]ercode | Phone Number | | Organization [...] | [place] | | 01/05/2019 8:36 AMMRN: [id number] #: [id number] of : | | | 9Admit Type: AmbulatoryAge: 58Room: [facility] 01Gender: MaleNote | | | Status: FinalizedAttending MD: Emmanuel Daniel [facility]cedure: | | | ColonoscopyIndications: Clinically significant diarrhea of | | | unexplained origin, Weight lossProviders: | | | Emmanuel Daniel MD, Heidi An RN, Kim | | | Fiorella Hicks, Instructor Tap Dancing, Jarett Alejo | | | MD Roshni [...] | | | the anesthesiologist and the conveyor technician in the endoscopy suite. | | [...] Out: | | | 9:06:28 AM [facility], [address] [place] [address], | | | [place] [address] | | | - Discharge patient to [...] Out: 9:06:28 AM | | | [facility], [address] [place] [address], [place], [place] | | | [address] | | + + -+ + +---------+ [...] | | (atherosclerotic heart disease of [place] coronary artery without | | | angina [...] or | | | microscopic colitis. BES:ssm rehab:C3NR GROSS DESCRIPTION: A. The | | | specimen, labeled "[place], duodenal biopsy" is received in formalin | | | and consists of seven 0.1-0.5 cm lin fragments. Entirely submitted in | | | (A1). B. The specimen, labeled "[place], right colon" is received | | | in formalin and consists of six 0.2-0.3 cm lin fragments. Entirely | | | submitted in (B1). C. The specimen, labeled "[place], left colon" | | | is received in formalin and consists of six 0.2-0.3 cm lin-pink | | | fragments. Entirely submitted in (C1). am:AMB:rds PERFORMING | | | LABORATORY: The technical component was performed by [facility] | | | [facility], [address] [place] [address] (Refurbish Technician: | | | Kailey Stafford MD; CLIA# [id number]). Professional interpretation was | | | performed by [facility], [facility], [address] | | | [place] [address] (Refurbish Technician: Ishaan | | | Anthony Dao; CLIA#: [id number]). Diagnostician: Ishaan Fitzpatrick | | | Sylwia [...] PRN, Nausea, Vomiting, Starting | | | [facility] 01/05/19 at 0924, | | | Recovery/Phase I | | + +---+ | | | + +---+ | ondansetron (ZOFRAN) injection | | | 4 mg 4 mg, Intravenous, ONCE | | | PRN, Nausea, Starting [facility] 01/05/19 | | | at 0924, For 1 dose, | | | Recovery/Phase I | | + +---+ | | | + +---+ documented in this encounter
--- OUTSIDE RECORDS SUMMARY | ~2019-11-12 | XMS | Encounter Summary ---
Demographics + + + | Address | [address] | | | [place] [address] | + + + | Home Phone [...] Team Providers + +------+ + | Care Plugging Machine Operator Name | Role | Phone [...] + | 01/24/ | Telephone | [facility] | Daljit Singletary, | Other | | 2019 | | CARDIOLOGY [address] | MD [address] [place] | | | | | [place], | [place], | | | | | [place] [address] | [place] [address] | | | | | [phone] | [phone] | | | | | | | [...] Interrogation | | | | | [place], | (Primary Dx); | | | | | [place] [address] | Presence of | | | | | [phone] | permanent cardiac | | | | [...] | | | | | | [place], | | | | | | [place] [address] | | | | | | [phone] | | | | | | | | +--------+ + + + + documented as of this encounter Visit Diagnoses Not on filedocumented in this encounter"
--- OUTSIDE RECORDS SUMMARY | ~2019-11-12 | XMS | Encounter Summary ---
Demographics + + + | Address | [address] | | | [place] [address] | + + + | Home Phone [...] Providers + +------+ + | Care Direct Marketing Specialist Name | Role | Phone [...] Refill | | 2013 | | [facility] [place] | DO [address] | | | | | [address] | [place] | | | | | [place] | [address] | | | | | [address] | | | | | | [phone] | | | +--------+--------+ + + + [...] | 2018 | Monitor | | [address] | Interrogation | | | | | [place], | (Primary Dx); | | | | | [place] [address] | Presence of | | | | | [phone] | permanent cardiac | | | | [...] | | | | | | [place] [address] | | | | | | [phone] | | | | | | | | +--------+ + + + + documented as of this encounter Visit Diagnoses Not on filedocumented in this encounter"
--- OUTSIDE RECORDS SUMMARY | ~2019-11-12 | XMS | Encounter Summary ---
Demographics + + + | Address | [address] | | | [place] [address] | + + + | Home Phone [...] Providers + +------+ + | Care Fuel Technician Name | Role | Phone | [...] | | | | [place]STOP[place] Pepe | [address] | | | | | [address] | | | | | | [phone] | | | +--------+ + + + [...] 2018 | Monitor | | MD Sim Lowell Shorty | Interrogation | | | | | [facility], | (Primary Dx); | | | | | [place] [address] | Presence of | | | | | [phone] | permanent cardiac | | | | [...] W | | | | | | [place], | | | | | | [place] [address] | | | | | | [phone] | | | | | | | | +--------+ + + + + documented as of this encounter Visit Diagnoses Not on filedocumented in this encounter"
--- OUTSIDE RECORDS SUMMARY | ~2019-11-12 | XMS | Encounter Summary ---
Demographics + + + | Address | [address] | | | [place] [address] | + + + | Home Phone [...] Team Providers + +------+ + | Care Ambulance Paramedic Name | Role | Phone | + [...] 2012 | | Conversion Location | [address] | | | | | [phone] | [address] [place], | | | | | | [place] [address] | | | | | | [phone] | | | | | | | [...] 2019 | Monitor | | MD [facility] | Interrogation | | | | | [place], | (Primary Dx); | | | | | [place] [address] | Presence of | | | | | [phone] | permanent cardiac | | | | [...] | | | | | | [place] [address] | | | | | | [phone] | | | | | | | | +--------+ + + + + documented as of this encounter Visit Diagnoses Not on filedocumented in this encounter"
--- OUTSIDE RECORDS SUMMARY | ~2019-11-12 | XMS | Encounter Summary ---
Demographics + + + | Address | [address] | | | [place] [address] | + + + | Home Phone [...] Team Providers + +------+ + | Care Billiard Player Name | Role | Phone | [...] | | | [place], [place] | [place] [address] | | | | | | [address] | Phone: | | | | | | Phone: | [phone] | | | | | | [phone] | Fax: | | | | | | Fax: | [phone] | | | | | | [phone] | | +--------+ + + + + + Reason for Visit + + + | Reason | Comments | + + + | Medicare Wellness | | + + + Encounter Details +--------+---------+ + + + | Date | Type | Department | Care Team | Description | +--------+---------+ + + + | 07/25/ | Office | [facility] | Michael Amanda, | Preventative health | | 2014 | Visit | MEDICINE [place] | DO [address] | care (Primary Dx); | | | | [address] | [place] | Cannabis abuse, | | | | [place] | [address] | daily use; Urinary | | | | [address] | | frequency; | | | | [phone] | | Incontinence; | | | | [...] tablet under the tongue every 5 luz marcso as needed for Chest pain. 25 tablet 12 [place]-3 Fatty Acids (SALMON OIL-1000 PO) CAPS, one [...] as Nurse Practitioner (Cardiology) FENG Chou (Physician Dog Behaviorist) Current Medicare Suppliers: [facility] - [place], [place] - [address] [place] [address] [facility] - [place], [place] - [address] [place] [address] HEALTH RISK ASSESSMENT: : The patient or [...] no kevin in the usual sections in [place] Semi. documented in this en counter Plan of [...] Dx); | | | | | [place] [address] | Presence of | | | | | [phone] | permanent cardiac | | | | [...] | | | | | | [place], | | | | | | [place] [address] | | | | | | [phone] | | | | | | | [...] - Primary [facility]ine [facility] | | care facility | + [...]
--- OUTSIDE RECORDS SUMMARY | ~2019-11-12 | XMS | Encounter Summary ---
Demographics + + + | Address | [address] | | | [place] [address] | + + + | Home Phone [...] Providers + +------+ + | Care Electrical Equipment Technician Name | Role | Phone | [...] | 10/26/ | Refill | [facility] | Kirk French | Medication Refill | | 2019 | | GASTROENTEROLOGY | MD Bre[address] | | | | | [address] | [address] | | | | | [address] [place], [place] | [place] [address] | | | | | [address] | [phone] | | | | | [phone] | | | +--------+--------+ + + + [...] | | | | | [place], | (Primary Dx); | | | | | [place] [address] | Presence of | | | | | [phone] | permanent cardiac | | | | [...] | | | | | | [place] [address] | | | | | | [phone] | | | | | | | | +--------+ + + + + documented as of this encounter Visit Diagnoses Not on filedocumented in this encounter"
--- OUTSIDE RECORDS SUMMARY | ~2019-11-12 | XMS | Encounter Summary ---
Demographics + + + | Address | [address] | | | [place] [address] | + + + | Home Phone [...] Team Providers + +------+ + | Care Material Stockkeeper Yard Name | Role | Phone | + [...] Eva ROUSE | | | | | [place], [place] | [address] | | | | | [address] | [place] [address] | | | | | [phone] | [phone] | | | | | | | [...] | 2018 | Monitor | | [address] [place] | Interrogation | | | | | [place], | (Primary Dx); | | | | | [place] [address] | Presence of | | | | | [phone] | permanent cardiac | | | | [...] W | | | | | | [place], | | | | | | [place] [address] | | | | | | [phone] | | | | | | | [...]
--- OUTSIDE RECORDS SUMMARY | ~2019-11-12 | XMS | Encounter Summary ---
Demographics + + + | Address | [address] | | | [place] [address] | + + + | Home Phone [...] Team Providers + +------+ + | Care Erecting Crane Operator Name | Role | Phone [...] + | 02/27/ | Telephone | [facility] | [place], | Chest Pain (Patient | | 2013 | | CARDIOLOGY [address] | Janeen, BUTTER MELTER [address] | having chest pain) | | | | [place], | [place], | | | | | [place] [address] | [place] [address] | | | | | [phone] | | | | | | | [...] Dx); | | | | | [place] [address] | Presence of | | | | | [phone] | permanent cardiac | | | | [...] | | | | | | [place] [address] | | | | | | [phone] | | | | | | | | +--------+ + + + + documented as of this encounter Visit Diagnoses Not on filedocumented in this encounter"
--- OUTSIDE RECORDS SUMMARY | ~2019-11-12 | XMS | Encounter Summary ---
Demographics + + + | Address | [address] | | | [place] [address] | + + + | Home Phone [...] + + + + | 01/17/ | [facility] | [facility] | Jonas Ramos, | | | 2009 | Encounter | MED CTR EMERGENCY | MD [address] | | | | | CENTER [address] | [facility] [place]IE | | | | | [place] | [place] [address] | | | | | [address] | [phone] | | | | | [phone] | | | +--------+ + + + [...] Dx); | | | | | [place] [address] | Presence of | | | | | [phone] | permanent cardiac | | | | [...] W | | | | | | [place], | | | | | | [place] [address] | | | | | | [phone] | | | | | | | | +--------+ + + + + documented as of this encounter Visit Diagnoses Not on filedocumented in this encounter"
--- OUTSIDE RECORDS SUMMARY | ~2019-11-12 | XMS | Encounter Summary ---
Demographics + + + | Address | [address] | | | [place] [address] | + + + | Home Phone [...] Team Providers + +------+ + | Care Bacteriologist Food Name | Role | Phone | + +------+ + PCP | Unavailable | + +------+ + Encounter Details +--------+ + + + + | Date | Type | Department | Care Team | Description | +--------+ + + + + | 05/28/ | [facility] | [facility] | Evan Gandara MD | | | 2008 | Encounter | MED CTR LABORATORY | [address] [facility] | | | | | [address] | [place] | | | | | [place] | [address] | | | | | [address] | | | | | | [phone] | | | +--------+ + + + [...] Interrogation | | | | | [place], | (Primary Dx); | | | | | [place] [address] | Presence of | | | | | [phone] | permanent cardiac | | | | [...] W | | | | | | [place], | | | | | | [place] [address] | | | | | | [phone] | | | | | | | | +--------+ + + + + documented as of this encounter Visit Diagnoses Not on filedocumented in this encounter"
--- OUTSIDE RECORDS SUMMARY | ~2019-11-12 | XMS | Encounter Summary ---
Demographics + + + | Address | [address] | | | [place] [address] | + + + | Home Phone [...] Providers + +------+ + | Care Quality Cloth Tester Name | Role | Phone | + +------+ + PCP | Unavailable | + +------+ + Encounter Details +--------+ + + + + | Date | Type | Department | Care Team | Description | +--------+ + + + + | 09/24/ | [facility] | [facility] | Evan Gandara MD | | | 2005 | Encounter | MED CTR XRAY [address] | [address] [facility] | | | | | [place] | [place] | | | | | [place] [address] | [address] | | | | | [phone] | | | +--------+ + + + [...] Interrogation | | | | | [place], | (Primary Dx); | | | | | [place] [address] | Presence of | | | | | [phone] | permanent cardiac | | | | [...] | | | | | | [place] [address] | | | | | | [phone] | | | | | | | | +--------+ + + + + documented as of this encounter Visit Diagnoses Not on filedocumented in this encounter"
--- OUTSIDE RECORDS SUMMARY | ~2019-11-12 | XMS | Encounter Summary ---
Demographics + + + | Address | [address] | | | [place] [address] | + + + | Home Phone [...] Providers + +------+ + | Care Military Administrative Technician Name | Role | Phone | [...] 2016 | | CARDIOLOGY [address] | REFUSE COLLECTOR SUPERVISOR [address] [place] | | | | | [place], | [place], [place] | | | | | [place] [address] | [address] | | | | | [phone] | | | +--------+--------+ + + + [...] Dx); | | | | | [place] [address] | Presence of | | | | | [phone] | permanent cardiac | | | | [...] | | | | | | [place] [address] | | | | | | [phone] | | | | | | | | +--------+ + + + + documented as of this encounter Visit Diagnoses Not on filedocumented in this encounter"
--- OUTSIDE RECORDS SUMMARY | ~2019-11-12 | XMS | Encounter Summary ---
Demographics + + + | Address | [address] | | | [place] [address] | + + + | Home Phone [...] Team Providers + +------+ + | Care Painter Ski Edge Name | Role | Phone | + [...] 2012 | | CARDIOLOGY [address] | TOOTH CLERK [address] [place] | to be referred | | | | [place], | [place], [place] | soon) | | | | [place] [address] | [address] | | | | | [phone] | | | +--------+ + + + [...] Dx); | | | | | [place] [address] | Presence of | | | | | [phone] | permanent cardiac | | | | [...] | | | | | | [place] [address] | | | | | | [phone] | | | | | | | | +--------+ + + + + documented as of this encounter Visit Diagnoses Not on filedocumented in this encounter"
--- OUTSIDE RECORDS SUMMARY | ~2019-11-12 | XMS | Encounter Summary ---
Demographics + + + | Address | [address] | | | [place] [address] | + + + | Home Phone [...] Team Providers + +------+ + | Care Tour Production Supervisor Name | Role | Phone | [...] Eva ROUSE | | | | | [place], [place] | [address] | | | | | [address] | [place] [address] | | | | | [phone] | [phone] | | | | | | | [...] | 2018 | Monitor | | [address] [place] | Interrogation | | | | | [place], | (Primary Dx); | | | | | [place] [address] | Presence of | | | | | [phone] | permanent cardiac | | | | [...] W | | | | | | [place], | | | | | | [place] [address] | | | | | | [phone] | | | | | | | [...]
--- OUTSIDE RECORDS SUMMARY | ~2019-11-12 | XMS | Encounter Summary ---
Demographics + + + | Address | [address] | | | [place] [address] | + + + | Home Phone [...] Team Providers + +------+ + | Care Dead Mail Checker Name | Role | Phone | [...] + + | 09/09/ | Office | [facility] | Michael Amanda, | Hyperlipidemia; | | 2011 | Visit | [facility] [place] | DO [address] | Hypertension; | | | | [address] | [place] | Chronic pain | | | | [place] | [address] | syndrome; Neck pain, | | | | [address] | | chronic | | | | [phone] | | | +--------+---------+ + + + [...] damage history No ASHD (either angina; prior [place]; prior CABG) No cardiac end organ damage [...] slowly cutting back. Pt was [facility] for [facility]iate medications prior to [...] 2019 | Monitor | | [address] [place] | Interrogation | | | | | [place], | (Primary Dx); | | | | | [place] [address] | Presence of | | | | | [phone] | permanent cardiac | | | | [...] W | | | | | | [place], | | | | | | [place] [address] | | | | | | [phone] | | | | | | | [...]
--- OUTSIDE RECORDS SUMMARY | ~2019-11-12 | XMS | Encounter Summary ---
Demographics + + + | Address | [address] | | | [place] [address] | + + + | Home Phone [...] Team Providers + +------+ + | Care Orchard Pruner Name | Role | Phone | + [...] | | PVCs | [place] | [address] | | | | | Procedures | [address] | [address] | | | | | CT OFFICE | [place] | [place] | | | | | CONSULTATION | [place], | [address] Phone: | | | | | NEW/ESTAB | [place] | [phone] | | | | | PATIENT 40 | [address] | Fax: | | | | | MIN | Phone: | [phone] | | | | | | [phone] | | | | | | | Fax: | | | | | | | [phone] | | +--------+--------+ + + + + Encounter Details +--------+---------+ + + + | Date | Type | Department | Care Team | Description | +--------+---------+ + + + | 11/30/ | Office | [facility] | Jay Gambino MD | Symptomatic PVCs | | 2015 | Visit | [place]Y [place] | [address] | (Primary Dx) | | | | HI[address] | [address] [place], | | | | | [facility] [address] [place] | [place] [address] | | | | | [address] | [phone] | | | | | [phone] | | | +--------+---------+ + + + [...] Gambino MD - 11/30/2014 5:37 PM PST [facility] [address] [place] [address] Patient Name: Moe Sanchez Date: 1960 Date [...] luz marcos as needed for Chest pain. [place]-3 Fatty Acids (SALMON OIL-1000 PO) CAPS, one [...] (1980 1984); Hypoglycemia; Drug addiction in remission ([facility]); HTN (hypertension); Hypercholesterolemia; Bipolar 1 [...] were not detected in the editing p Zampleess. Should you have any questions or concerns, [...] 2018 | Monitor | | MD [address] [place] | Interrogation | | | | | [place], | (Primary Dx); | | | | | [place] [address] | Presence of | | | | | [phone] | permanent cardiac | | | | [...] W | | | | | | [place], | | | | | | [place] [address] | | | | | | [phone] | | | | | | | [...]
--- OUTSIDE RECORDS SUMMARY | ~2019-11-12 | XMS | Encounter Summary ---
Demographics + + + | Address | [address] | | | [place] [address] | + + + | Home Phone [...] Providers + +------+ + | Care Beef Farmer Name | Role | Phone | [...] + | 12/23/ | Telephone | [facility] | Emmanuel Daniel MD | Other (Needs to know | | 2017 | | GASTROENTEROLOGY | [address], [place] | what he can eat | | | | [address] [place] | 210 [place], [place] | today) | | | | [address] [place], [place] | [address] | | | | | [address] | | | | | | [phone] | | | +--------+ + + + [...] | | | | | [address] [place], | (Primary Dx); | | | | | [place] [address] | Presence of | | | | | [phone] | permanent cardiac | | | | | | pacemaker; | | | | | | Sinoatrial node | | | | | | dysfunction (HCC) | | | | | | with symptomatic | | | | | | bradycardia | +--------+ + + + + | 01/01/ | Office | Cardiology | [place], | | | 2020 | Visit | | PARISA [place] [address] | | | | | | [place], | | | | | | [place] [address] | | | | | | [phone] | | | | | | | | +--------+ + + + + documented as of this encounter Visit Diagnoses Not on filedocumented in this encounter"
--- OUTSIDE RECORDS SUMMARY | ~2019-11-12 | XMS | Encounter Summary ---
Demographics + + + | Address | [address] | | | [place] [address] | + + + | Home Phone [...] Providers + +------+ + | Care Crime Prevention Police Officer Name | Role | Phone [...] Eva ROUSE | | | | | [place], [place] | [address] | | | | | [address] | [place] [address] | | | | | [phone] | [phone] | | | | | | | [...] | 2018 | Monitor | | [address] [place] | Interrogation | | | | | [place], | (Primary Dx); | | | | | [place] [address] | Presence of | | | | | [phone] | permanent cardiac | | | | [...] W | | | | | | [place], | | | | | | [place] [address] | | | | | | [phone] | | | | | | | [...]
--- OUTSIDE RECORDS SUMMARY | ~2019-11-12 | XMS | Encounter Summary ---
Demographics + + + | Address | [address] | | | [place] [address] | + + + | Home Phone [...] + | 12/23/ | Telephone | [facility] | Silvia, | Lab Order (due for | | 2017 | | CARDIOLOGY [address] | Janeen, COMMISSARY ASSISTANT [address] | fasting labs) | | | | [place], | [place], | | | | | [place] [address] | [place] [id number] | | | | | [phone] | [phone] | | | | | | | [...] Dx); | | | | | [place] [address] | Presence of | | | | | [phone] | permanent cardiac | | | | [...] | | | | | | [place] [address] | | | | | | [phone] | | | | | | | | +--------+ + + + + documented as of this encounter Visit Diagnoses Not on filedocumented in this encounter"
--- OUTSIDE RECORDS SUMMARY | ~2019-11-12 | XMS | Encounter Summary ---
Demographics + + + | Address | [address] | | | [place] [address] | + + + | Home Phone [...] Providers + +------+ + | Care Pie Baker Name | Role | Phone | [...] + + | 08/04/ | Telephone | [facility] | [place], | Other (4 week event | | 2017 | | CARDIOLOGY [address] | PARISA [place] [address] | monitor ) | | | | [place], | [place], | | | | | [place] [address] | [place] [address] | | | | | [phone] | [phone] | | | | | | | [...] 2019 | Monitor | | MD [address] [place] | Interrogation | | | | | [place], | (Primary Dx); | | | | | [place] [address] | Presence of | | | | | [phone] | permanent cardiac | | | | [...] | | | | | | [place], | | | | | | [place] [address] | | | | | | [phone] | | | | | | | | +--------+ + + + + documented as of this encounter Visit Diagnoses Not on filedocumented in this encounter"
--- OUTSIDE RECORDS SUMMARY | ~2019-11-12 | XMS | Encounter Summary ---
Demographics + + + | Address | [address] | | | [place] [address] | + + + | Home Phone [...] + +------+ + | Care Client Relationship Consultant Name | Role | Phone | [...] 2019 | | GASTROENTEROLOGY | [address] [place], [place] | | | | | [address] [place] | 210 [place], [place] | | | | | [address] [place], [place] | [address] | | | | | [address] | | | | | | [phone] | | | +--------+ + + + [...] 2019 | Monitor | | MD [address] [place] | Interrogation | | | | | [place], | (Primary Dx); | | | | | [place] [address] | Presence of | | | | | [phone] | permanent cardiac | | | | [...] W | | | | | | [place], | | | | | | [place] [address] | | | | | | [phone] | | | | | | | | +--------+ + + + + documented as of this encounter Visit Diagnoses Not on filedocumented in this encounter"
--- OUTSIDE RECORDS SUMMARY | ~2019-11-12 | XMS | Encounter Summary ---
Demographics + + + | Address | [address] | | | [place] [address] | + + + | Home Phone [...] Providers + +------+ + | Care Supervisor Dehydrogenation Name | Role | Phone | + [...] + + | 08/14/ | Telephone | [facility] | Michael Amanda, | Appointment | | 2012 | | GROUP IMAGING [address] | DO [address] | | | | | [facility] | [place] | | | | | [place], [place] | [address] | | | | | [address] | | | | | | [phone] | | | +--------+ + + + [...] Interrogation | | | | | [place], | (Primary Dx); | | | | | [place] [address] | Presence of | | | | | [phone] | permanent cardiac | | | | [...] | | | | | | [place] [address] | | | | | | [phone] | | | | | | | | +--------+ + + + + documented as of this encounter Visit Diagnoses Not on filedocumented in this encounter"
--- OUTSIDE RECORDS SUMMARY | ~2019-11-12 | XMS | Encounter Summary ---
Demographics + + + | Address | [address] | | | [place] [address] | + + + | Home Phone [...] Team Providers + +------+ + | Care Geology Scientist Name | Role | Phone | [...] Provider Unknown | | | | | [place], [place] | [phone] | | | | | [address] | | | | | | [phone] | | | +--------+ + + + [...] + + + +---------+ + + | [place]-3 Fatty | CAPS, one capsule by [...] | | | | | | | #[id number], exp 07/2016 | | | | | [...] | Inter[facility]ation | | | | | [facility] | (Primary Dx); | | | | | [place] [address] | Presence of | | | | | [phone] | permanent cardiac | | | | | | pacemaker; | | | | | | Sinoatrial node | | | | | | dysfunction (HCC) | | | | | | with symptomatic | | | | | | bradycardia | +--------+ + + + + | Office | Cardiology | [place], | | | 2019 | Visit | | PARISA [place] [address] | | | | | | [place], | | | | | | [place] [address] | | | | | | [phone] | | | | | | | [...]
--- OUTSIDE RECORDS SUMMARY | ~2019-11-12 | XMS | Encounter Summary ---
Demographics + + + | Address | [address] | | | [place] [address] | + + + | Home Phone [...] Team Providers + +------+ + | Care Netezza Developer Name | Role | Phone | [...] [address] | | | | | | [place], [place] | (Fax) | | | | | [address] | | | | | | [phone] | | | +--------+ + + + [...] 2019 | Monitor | | [address] | Interrogation | | | | | [place], | (Primary Dx); | | | | | [place] [address] | Presence of | | | | | [phone] | permanent cardiac | | | | [...] | | | | | | [place] [address] | | | | | | [phone] | | | | | | | | +--------+ + + + + documented as of this encounter Visit Diagnoses Not on filedocumented in this encounter"
--- OUTSIDE RECORDS SUMMARY | ~2019-11-12 | XMS | Encounter Summary ---
Demographics + + + | Address | [address] | | | [place] [address] | + + + | Home Phone [...] Team Providers + +------+ + | Care Funds Transfer Clerk Name | Role | Phone | [...] | RN | | | | | [place], | | | | | | [place] [address] | | | | | | [phone] | | | +--------+ + + + [...] Dx); | | | | | [place] [address] | Presence of | | | | | [phone] | permanent cardiac | | | | [...] W | | | | | | [place], | | | | | | [place] [address] | | | | | | [phone] | | | | | | | | +--------+ + + + + documented as of this encounter Visit Diagnoses Not on filedocumented in this encounter"
--- OUTSIDE RECORDS SUMMARY | ~2019-11-12 | XMS | Encounter Summary ---
Demographics + + + | Address | [address] | | | [place] [address] | + + + | Home Phone [...] Team Providers + +------+ + | Care Desk Interviewer Name | Role | Phone | [...] 2014 | | CARDIOLOGY [address] | HYDROELECTRIC PLANT MAINTAINER [address] [place] | | | | | [place], | [place], [place] | | | | | [place] [address] | [address] | | | | | [phone] | | | +--------+ + + + [...] Monitor | | [facility] | Interrogation | | | | | [place], | (Primary Dx); | | | | | [place] [address] | Presence of | | | | | [phone] | permanent cardiac | | | | [...] W | | | | | | [place], | | | | | | [place] [address] | | | | | | [phone] | | | | | | | | +--------+ + + + + documented as of this encounter Visit Diagnoses Not on filedocumented in this encounter"
--- OUTSIDE RECORDS SUMMARY | ~2019-11-12 | XMS | Encounter Summary ---
Demographics + + + | Address | [address] | | | [place] [address] | + + + | Home Phone [...] Providers + +------+ + | Care Desk Manager Name | Role | Phone | [...] visit | CARDIOLOGY [address] | [address] | reprogramming/check | | | | [place], | [place], | DO NOT DELETE | | | | [place] [address] | [place] [address] | (Primary Dx); | | | | [phone] | [phone] | Sinoatrial node | | | | [...] Dx); | | | | | [place] [address] | Presence of | | | | | [phone] | permanent cardiac | | | | [...] | | | | | | [place] [address] | | | | | | [phone] | | | | | | | [...]
--- OUTSIDE RECORDS SUMMARY | ~2019-11-12 | XMS | Encounter Summary ---
Demographics + + + | Address | [address] | | | [place] [address] | + + + | Home Phone [...] Team Providers + +------+ + | Care Contemporary Or Modern Dancer Name | Role | Phone | + +------+ + PCP | Unavailable | + +------+ + Encounter Details +--------+ + + + + | Date | Type | Department | Care Team | Description | +--------+ + + + + | 10/29/ | Hospital | [facility] | Pia Akhtar | | | 2003 | Encounter | CONVERSION DEP [address] | MD [address] | | | | | [address] | [address] | | | | | [place] | [place] [address] | | | | | [address] | [phone] | | | | | [phone] | | | +--------+ + + + [...] Dx); | | | | | [place] [address] | Presence of | | | | | [phone] | permanent cardiac | | | | [...] | | | | | | [place] [address] | | | | | | [phone] | | | | | | | | +--------+ + + + + documented as of this encounter Visit Diagnoses Not on filedocumented in this encounter"
--- OUTSIDE RECORDS SUMMARY | ~2019-11-12 | XMS | Encounter Summary ---
Demographics + + + | Address | [address] | | | [place] [address] | + + + | Home Phone [...] Providers + +------+ + | Care Email Production Specialist Name | Role | Phone | + +------+ + PCP | Unavailable | + +------+ + Encounter Details +--------+ + + + + | Date | Type | Department | Care Team | Description | +--------+ + + + + | 11/05/ | [facility] | [facility] | Naresh Mckeon | | | 2009 | Encounter | MED CTR SLEEP | MD Chaya [address] | | | | | CENTER [address] | [place] | | | | | [place] | [place] [address] | | | | | [address] | [phone] | | | | | [phone] | | | +--------+ + + + [...] Dx); | | | | | [place] [address] | Presence of | | | | | [phone] | permanent cardiac | | | | [...] W | | | | | | [place], | | | | | | [place] [address] | | | | | | [phone] | | | | | | | | +--------+ + + + + documented as of this encounter Visit Diagnoses Not on filedocumented in this encounter"
--- OUTSIDE RECORDS SUMMARY | ~2019-11-12 | XMS | Encounter Summary ---
Demographics + + + | Address | [address] | | | [place] [address] | + + + | Home Phone [...] Providers + +------+ + | Care Sales Performance Analyst Name | Role | Phone | + +------+ + PCP | Unavailable | + +------+ + Encounter Details +--------+ + + + + | Date | Type | Department | Care Team | Description | +--------+ + + + + | 01/21/ | Emergency | [facility] | Kirill Dominique | Unspecified Chest | | 2009 | | MEDICAL CENTER | MD Jon[address] | Pain | | | | EMERGENCY CENTER | [address] [place] | | | | | [address] | [address] | | | | | [place] | [phone] | | | | | [address] | | | | | | [phone] | | | +--------+ + + + [...] | 2019 | Monitor | | [address] | Interrogation | | | | | [place], | (Primary Dx); | | | | | [place] [address] | Presence of | | | | | [phone] | permanent cardiac | | | | [...] W | | | | | | [place], | | | | | | [place] [address] | | | | | | [phone] | | | | | | | | +--------+ + + + + documented as of this encounter Visit Diagnoses + + | Diagnosis | + + | Chest pain, unspecified | + + documented in this encounter"
--- OUTSIDE RECORDS SUMMARY | ~2019-11-12 | XMS | Encounter Summary ---
Demographics + + + | Address | [address] | | | [place] [address] | + + + | Home Phone [...] Providers + +------+ + | Care Ceramic Designer Name | Role | Phone | [...] 2018 | | GASTROENTEROLOGY | [address], [place] | about prep for | | | | [address] [place] | [address] [place], [place] | procedure) | | | | [address] [place], [place] | [address] | | | | | [address] | | | | | | [phone] | | | +--------+ + + + [...] Dx); | | | | | [place] [address] | Presence of | | | | | [phone] | permanent cardiac | | | | [...] | 2020 | Visit | | Janeen, GEOPHYSICAL PARTY CHIEF [address] | | | | | | [place], | | | | | | [place] [address] | | | | | | [phone] | | | | | | | | +--------+ + + + + documented as of this encounter Visit Diagnoses Not on filedocumented in this encounter"
--- OUTSIDE RECORDS SUMMARY | ~2019-11-12 | XMS | Encounter Summary ---
Demographics + + + | Address | [address] | | | [place] [address] | + + + | Home Phone [...] Providers + +------+ + | Care Door Closer Name | Role | Phone | + +------+ + PCP | Unavailable | + +------+ + Encounter Details +--------+ + + + + | Date | Type | Department | Care Team | Description | +--------+ + + + + | 02/21/ | [facility] | [facility] | Geri Anegl, | | | 2011 | Encounter | MED CTR XRAY [address] | SHAREHOLDER [address] | | | | | [place] | St [place] | | | | | [place] [address] | [address] | | | | | [phone] | | | +--------+ + + + [...] Interrogation | | | | | [place], | (Primary Dx); | | | | | [place] [address] | Presence of | | | | | [phone] | permanent cardiac | | | | [...] W | | | | | | [place], | | | | | | [place] [address] | | | | | | [phone] | | | | | | | | +--------+ + + + + documented as of this encounter Visit Diagnoses Not on filedocumented in this encounter"
--- OUTSIDE RECORDS SUMMARY | ~2019-11-12 | XMS | Encounter Summary ---
Demographics + + + | Address | [address] | | | [place] [address] | + + + | Home Phone [...] Team Providers + +------+ + | Care Refrigerator Assembler Name | Role | Phone | + +------+ + PCP | Unavailable | + +------+ + Encounter Details +--------+ + + + + | Date | Type | Department | Care Team | Description | +--------+ + + + + | 01/15/ | [facility] | [facility] | Emmanuel Daniel MD | | | 1994 | Encounter | MED CTR GENERIC OP | [address] | | | | | CONV DEPT [address] | [address] [place] | | | | | [place], | [address] | | | | | [place] [address] | | | | | | [phone] | | | +--------+ + + + [...] Dx); | | | | | [place] [address] | Presence of | | | | | [phone] | permanent cardiac | | | | [...] | | | | | | [place] [address] | | | | | | [phone] | | | | | | | | +--------+ + + + + documented as of this encounter Visit Diagnoses Not on filedocumented in this encounter"
--- OUTSIDE RECORDS SUMMARY | ~2019-11-12 | XMS | Encounter Summary ---
Demographics + + + | Address | [address] | | | [place] [address] | + + + | Home Phone [...] Team Providers + +------+ + | Care Eyeglass Assembler Name | Role | Phone | [...] | Telephone | [facility] [place] | [place], | LABS | | 2019 | | CARDIOLOGY [address] | Janeen DIRECTOR INTERNATIONAL [address] | | | | | [place], | [place], | | | | | [place] [address] | [place] [address] | | | | | [phone] | [phone] | | | | | | | [...] 2019 | Monitor | | [address] [place] | Interrogation | | | | | [place], | (Primary Dx); | | | | | [place] [address] | Presence of | | | | | [phone] | permanent cardiac | | | | [...] W | | | | | | [place], | | | | | | [place] [address] | | | | | | [phone] | | | | | | | [...]
--- OUTSIDE RECORDS SUMMARY | ~2019-11-12 | XMS | Encounter Summary ---
Demographics + + + | Address | [address] | | | [place] [address] | + + + | Home Phone [...] Team Providers + +------+ + | Care Ice Cream Vendor Name | Role | Phone | [...] + | 06/27/ | Telephone | [facility] | Michael Amanda, | ED Follow-up (s/p | | 2014 | | MEDICINE [place] | DO [address] | [facility]) | | | | [address] | [place] | | | | | [place] | [address] | | | | | [address] | | | | | | [phone] | | | +--------+ + + + [...] | | | | | [place], | (Primary Dx); | | | | | [place] [address] | Presence of | | | | | [phone] | permanent cardiac | | | | [...] | | | | [place], | | | | | | [place] [address] | | | | | | [phone] | | | | | | | | +--------+ + + + + documented as of this encounter Visit Diagnoses Not on filedocumented in this encounter"
--- OUTSIDE RECORDS SUMMARY | ~2019-11-12 | XMS | Encounter Summary ---
Demographics + + + | Address | [address] | | | [place] [address] | + + + | Home Phone [...] Providers + +------+ + | Care Paper Ruler Name | Role | Phone | + +------+ + PCP | Unavailable | + +------+ + Encounter Details +--------+ + + + + | Date | Type | Department | Care Team | Description | +--------+ + + + + | 04/28/ | [facility] | [facility] | Jonathan, | | | 2008 | Encounter | MED CTR EMERGENCY | Martell Cr MD [address] | | | | | CENTER [address] | [place] | | | | | [place] | [place] [address] | | | | | [address] | [phone] | | | | | [phone] | | | +--------+ + + + [...] Dx); | | | | | [place] [address] | Presence of | | | | | [phone] | permanent cardiac | | | | [...] | | | | | | [place] [address] | | | | | | [phone] | | | | | | | | +--------+ + + + + documented as of this encounter Visit Diagnoses Not on filedocumented in this encounter"
--- OUTSIDE RECORDS SUMMARY | ~2019-11-12 | XMS | Encounter Summary ---
Demographics + + + | Address | [address] | | | [place] [address] | + + + | Home Phone [...] Providers + +------+ + | Care Portfolio Consultant Name | Role | Phone | + +------+ + PCP | Unavailable | + +------+ + Encounter Details +--------+ + + + + | Date | Type | Department | Care Team | Description | +--------+ + + + + | 06/14/ | [facility] | [facility] | Kennethshaistatesha Shaistakenneth, | | | 2008 - | Encounter | MED CTR MP INTRA OP | [address] | | | | | [address] | [address] [place], | | | 06/15/ | | [place] | [place] [address] | | | 2008 | | [address] | [phone] | | | | | [phone] | | | +--------+ + + + [...] Dx); | | | | | [place] [address] | Presence of | | | | | [phone] | permanent cardiac | | | | [...] W | | | | | | [place], | | | | | | [place] [address] | | | | | | [phone] | | | | | | | | +--------+ + + + + documented as of this encounter Visit Diagnoses Not on filedocumented in this encounter"
--- OUTSIDE RECORDS SUMMARY | ~2019-11-12 | XMS | Encounter Summary ---
Demographics + + + | Address | [address] | | | [place] [address] | + + + | Home Phone [...] Organization | [facility] | | | [...] Providers + +------+ + | Care Medical Oncology Physician Name | Role | Phone | [...] Eva R[address]SE | | | | | [place], [place] | [address] | | | | | [address] | [place] [address] | | | | | [phone] | [phone] | | | | | | | [...] 2018 | Monitor | | [address] [place] | Interrogation | | | | | [place], | (Primary Dx); | | | | | [place] [address] | Presence of | | | | | [phone] | permanent cardiac | | | | [...] | | | | | | [place], | | | | | | [place] [address] | | | | | | [phone] | | | | | | | [...]
--- OUTSIDE RECORDS SUMMARY | ~2019-11-12 | XMS | Encounter Summary ---
Demographics + + + | Address | [address] | | | [place] [address] | + + + | Home Phone [...] Providers + +------+ + | Care County Administrator Name | Role | Phone | [...] + | 03/07/ | Office | [facility] | [place], | SINUS BRADYCARDIA | | 2013 | Visit | CARDIOLOGY [address] | PARISA [place] [address] | (Primary Dx); | | | | [place], | [place], | Syncope; Symptomatic | | | | [place] [address] | [place] [address] | PVCs; Pacemaker - | | | | [phone] | [phone] | Medtronic - [id number] | | | [...] Sanchez Date: March 07, 2014 : 1960 Insurance Healthcare Representative: Kailey Pruitt RN Device World Language Teacher:Medtronic Sense (mV) Impedance (?) Capture (V) Capture (ms) A Lead >5.60 402 1.500 0.09 RV Lead >31.36 522 2.00 0.09 LV Lead Battery Impedance (?): 528 Battery Voltage (V): 2.79 NM Interval (ms): 147 [place] Interval (ms): 217 VA Conduction: Mode Switch Events: 0 % of time: 0 -CLINICAL LAB SPECIALIST: <0.1% AP-CLINICAL LAB SPECIALIST: 0.1% -VS: 23.8% AP-VS: 76.1% CLINICAL LAB SPECIALIST: Magnetic Rate: 85 LINDA: 65 LEAH: [...] Pruitt RN 03/07/2014 12:00 Janeen Mccollum [place] HYDRAULIC DREDGE OPERATOR - 03/07/2014 11:07 AM PDT PATIENT NAME: [...] headaches. He paulino d been seen at [facility] a couple times with chest [...] needed for Chest pain. 25 tablet 12 Clifton-3 Fatty Acids (SALMON OIL-1000 PO) CAPS, one [...] Sanchez Date: March 07, 2014 : 1960 Insurance Healthcare Representative: Kailey Pruitt RN Device World Language Teacher:[email or web address] Sense (mV) Impedance (?) Capture (V) Capture (ms) A Lead >5.60 402 1.500 0.09 RV Lead >31.36 522 2.00 0.09 LV Lead Battery Impedance (?): 528 Battery Voltage (V): 2.79 NM Interval (ms): 147 AR Interval (ms): 217 VA Conduction: Mode Switch Events: 0 % of time: 0 -CLINICAL LAB SPECIALIST: <0.1% AP-CLINICAL LAB SPECIALIST: 0.1% -VS: 23.8% AP-VS: 76.1% CLINICAL LAB SPECIALIST: Magnetic Rate: 85 LINDA: 65 LEAH: [...] cannot completely be ruled out. [facility] 12/25/13, shows noncritical coronary artery disease, [...] pain. He is in class II of [place] [employer] functional class . There are [...] ventricular arrhythmia performed by Dr. Gambino at [facility] on 01/30/2013. Patient had spontaneous PVCs [...] to go back in 3 days to [place] for an attempt of ablation under general [...] palpitations.. He is in class II of [place] 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 There are no [...] bring in his blood pressure logs from [facility] 5. Lightheadedness and dizziness/ presyncope: A. [...] to ensure accuracy; however, inadvertent computerized ore charger errors may be pre sent. Electronically signed [...] Dx); | | | | | [place] [address] | Presence of | | | | | [phone] | permanent cardiac | | | | [...] | | | | | | [place], | | | | | | [place] [address] | | | | | | [phone] | | | | | | | [...] 07, 2014 : | | | 1960 Insurance Healthcare Representative: Kailey Pruitt RN Device | | | World Language Teacher:[email or web address] Sense (mV) Impedance (?) Capture (V) | | | Capture (ms) A Lead >5.60 402 1.500 0.09 RV Lead >31.36 522 2.00 | | | 0.09 LV Lead Battery Impedance (?): 528 Battery Voltage (V): | | | 2.79 NM Interval (ms): 147 AR Interval (ms): 217 VA Conduction: | | | Mode Switch Events: 0 % of time: 0 -CLINICAL LAB SPECIALIST: <0.1% AP-CLINICAL LAB SPECIALIST: 0.1% -VS: | | | 23.8% AP-VS: 76.1% CLINICAL LAB SPECIALIST: Magnetic Rate: 85 LINDA: 65 LEAH: [...] | | Date: March 07, 2014DOB: 1960 Insurance Healthcare Representative: Kailey Pruitt RN Device | | World Language Teacher:[email or web address] Sense (mV) Impedance (?) Capture (V) Capture (ms) A Lead >5.60 | | 402 1.500 0.09 RV Lead >31.36 522 2.00 0.09 LV Lead Battery Impedance (?): 528 | | Battery Voltage (V): 2.79 NM Interval (ms): 147 AR Interval (ms): 217 VA Conduction: | | Mode Switch Events: 0 % of time: 0 -CLINICAL LAB SPECIALIST: <0.1% AP-CLINICAL LAB SPECIALIST: 0.1% -VS: 23.8% AP-VS: 76.1% | | CLINICAL LAB SPECIALIST: Magnetic Rate: 85 LINDA: 65 LEAH: [...]
--- OUTSIDE RECORDS SUMMARY | ~2019-11-12 | XMS | Encounter Summary ---
Demographics + + + | Address | [address] | | | [place] [address] | + + + | Home Phone [...] Providers + +------+ + | Care Beam Warper Name | Role | Phone | + +------+ + PCP | Unavailable | + +------+ + Encounter Details +--------+ + + + + | Date | Type | Department | Care Team | Description | +--------+ + + + + | 06/17/ | Hospital | [facility] | | | | 2007 | Encounter | MED CTR EMERGENCY | | | | | | [place] [address] | | | | | | [place] | | | | | | [address] | | | | | | [phone] | | | +--------+ + + + [...] Dx); | | | | | [place] [address] | Presence of | | | | | [phone] | permanent cardiac | | | | [...] W | | | | | | [place], | | | | | | [place] [address] | | | | | | [phone] | | | | | | | | +--------+ + + + + documented as of this encounter Visit Diagnoses Not on filedocumented in this encounter"
--- OUTSIDE RECORDS SUMMARY | ~2019-11-12 | XMS | Encounter Summary ---
Demographics + + + | Address | [address] | | | [place] [address] | + + + | Home Phone [...] Providers + +------+ + | Care Director Stage Name | Role | Phone | + [...] | Palpitations | [address] | | | | | Procedures | [address] | [address] [place] | | | | | ECHO | [place], | [place], [place] | | | | | Complete | [place] [address] | [address] | | | | | | Phone: | Phone: | | | | | | [phone] | [phone] | | | | | | Fax: | Fax: | | | | | | [phone] | [phone] | +--------+--------+ + + + + Reason for Visit + + + | Reason | Comments | + + + | Chest Pain | OC: THR/Device check CC:Micahel Amanda DO | + + + | Bradycardia | | + + + Encounter Details +--------+---------+ + + + | Date | Type | Department | Care Team | Description | +--------+---------+ + + + | 12/21/ | Office | [facility] | Daljit Singletary, | Palpitations | | 2012 | Visit | CARDIOLOGY [address] | [address] | (Primary Dx); PVC | | | | [address] [place], | [place], | (premature | | | | [place] [address] | [place] [address] | ventricular | | | | [phone] | [phone] | contraction) | | | | | [...] in this encounter Patient Instructions Patient Instructions Darelne Tirado RN - 12/21/2012 12:16 PM PST1. [...] present himself to the emergency department at [facility] in [place], [place]. Today, patient is apprehensive of the [...] tablet Take 1,000 mg by mouth Daily. Clifton-3 Fatty Acids (SALMON OIL-1000 PO) CAPS, [...] tablet Take 1,000 mg by mouth Daily. Clifton-3 Fatty Acids (SALMON OIL-1000 PO) CAPS, [...] Gay Date: December 21, 2012 : 1960 Accounting Associate: PARISA Velazquez Device Black Jack Dealer: Continuity Controltronic Sense (mV) Impedance (?) Capture (V) Capture (ms) A Lead 4-5.6 423 1.5 0.09 RV Lead >31.36 539 2.0 0.09 LV Lead Battery Impedance (?): 301 Battery Voltage (V): 2.8 [place] Interval (ms): 140 AR Interval (ms): 210 VA Conduction: Mode Switch Events: N/A % of time: -VENEER PRESS OPERATOR: 0.6 AP-VENEER PRESS OPERATOR: 1.3 -VS: 23.9 AP-VS: 74.2 VENEER PRESS OPERATOR: Magnetic Rate: 85 LINDA: 65 LEAH: Current [...] himself to the emerge ncy department at [facility] in [place], [place]. EKG showed normal sinus rhythm with [...] I will d iscuss this option with client services specialist in [place]. 7. Followup in 2-4 weeks. Portions of this report were transcribed using voice recognition software. Every effort wa s made to ensure accuracy; however, inadvertent computerized asphalt tile floor layer errors may be pre sent. documented in this encounter Plan of Treatment +--------+ + + + + | Date | Type | Specialty | Care Team | Description | +--------+ + + + + | 11/20/ | Implant | Cardiology | Daljit Singletary, | Remote Device | | 2019 | Monitor | | [address] | Interrogation | | | | | [place], | (Primary Dx); | | | | | [place] [address] | Presence of | | | | | [phone] | permanent cardiac | | | | [...] W | | | | | | [place], | | | | | | [place] [address] | | | | | | [phone] | | | | | | | | +--------+ + + + + documented as of this encounter Results ECHO Complete (12/30/2012 4:08 PM PST) + + | Specimen | + + | | + + + + + | Narrative | Performed At | + + + | [facility] | [place] | | Department [address] | [facility] | | [ rep ct [address]] [ rep ct [facility] | | st zip] Signed | - IMAGING | | | | | Patient Name: MOE GAY | | | Physician: MIGUELINA : 1960 Age: 52 Sex: M Unit | | | #: [id number] Exam Date: 12/30/12 Location: | | | IMG Report #: [id number] Page: | | | %(RAD)RES..mtdd.print.filter("pg") of %(RAD) | | | RES..mtdd.print.filter("tpg") | | | | | | Accession Number: [id number] | | | E C H O C A R D I O G R A P H Y R E P O R T | | | HEIGHT: 76" WEIGHT: 270# | | | [place] FLORIST: JAMEEL REFERRING DR: TIMMY READING DR: | | | TIMMY DIAGNOSIS: PALPITATIONS [...] | | | Transcribed Date/Time: 12/30/2012 16:34 Medicare Sales Representative: | | | <<Signature on File>> | | | Daljit | | | MD Gemini [facility] FASE01/02/13 0955 <Electronically signed by | | | Daljit Singletary MD, [facility], FACP, FASE, FASNC> Rashadong | | | MD CLEOPATRA Singletary FASE 12/30/12 1608 Medicare Sales Representative: Jessica | | | Wdjhsdqsvtpxe45/08/13 1634 MD ROSEMARY Newby | | | FASE | | + + + + + + + + | Performing | Address | City/[facility] | Phone Number | | Organization | | | | + + + + + | [address] | [address] | [place] | [phone] | | [facility] | | [address] | | | - IMAGING | | | | + + + + + documented in this encounter Visit Diagnoses + + | Diagnosis | + + | Palpitations - Primary | + + | PVC (premature ventricular contraction) Other premature beats | + + documented in this encounter
--- OUTSIDE RECORDS SUMMARY | ~2019-11-12 | XMS | Encounter Summary ---
Demographics + + + | Address | [address] | | | [place] [address] | + + + | Home Phone [...] Providers + +------+ + | Care Chemical Laboratory Assistant Name | Role | Phone [...] W | | | | | [place], | [place], | | | | | [place] [address] | [place] [address] | | | | | [phone] | [phone] | | | | | | | [...] | 11/20/ | Implant | Cardiology | Sunshinecherelle Shaistakenneth, | Remote Device | | 2018 | Monitor | | [address] [place] | Interrogation | | | | | [place], | (Primary Dx); | | | | | [place] [address] | Presence of | | | | | [phone] | permanent cardiac | | | | [...] | | | | | | [place], | | | | | | [place] [address] | | | | | | [phone] | | | | | | | [...]
--- OUTSIDE RECORDS SUMMARY | ~2019-11-12 | XMS | Encounter Summary ---
Demographics + + + | Address | [address] | | | [place] [address] | + + + | Home Phone [...] Providers + +------+ + | Care Hotel Casino Floorperson Name | Role | Phone | + +------+ + | Kirk French MD | PCP | | + +------+ + Encounter Details +--------+ + + + + | Date | Type | Department | Care Team | Description | +--------+ + + + + | 01/25/ | Emergency | [facility] | Donald Callahan, | Strain of lumbar | | 2016 | | MEDICAL CENTER | Russ, DO [address] | paraspinal muscle, | | | | EMERGENCY CENTER | [address] | initial encounter; | | | | [address] | [place], [place] | Left hip pain | | | | [place], [place] | [address] | | | | | [address] | | | | | | [phone] | | | +--------+ + + + [...] + + + +---------+ + + | Kyle-3 Fatty | CAPS, one capsule by | [...] Dx); | | | | | [place] [address] | Presence of | | | | | [phone] | permanent cardiac | | | | [...] W | | | | | | [place], | | | | | | [place] [address] | | | | | | [phone] | | | | | | | [...] Conversion - 07/06/2019 12:12 AM PDT PINA [id number] years MaleXR | | LUMBAR SPINE LIMITED [...]
--- OUTSIDE RECORDS SUMMARY | ~2019-11-12 | XMS | Encounter Summary ---
Demographics + + + | Address | [address] | | | [place] [address] | + + + | Home Phone [...] Providers + +------+ + | Care Community Development Specialist Name | Role | Phone [...] [place] | | | | | [place] | | [address] Phone: | | | | | CYSTO/URETER | | [phone] | | | | | [place] | | Fax: | | | | | W/LITHOTRIPS | | [phone] | | | | | Y &INDWELL [...] | | | | | [address] | [place] | | | | | [place] | [address] | | | | | [address] | | | | | | [phone] | | | +--------+ + + + [...] +----+---+ + + | | 0 | [place] | | | | 8 | 43-degrees | | | | 2 | | | | | 7 | | | +----+---+ + + | | 0 | First | | | | 8 | [address] | | | | 2 | | | | | 8 | | | +----+---+ + + | | 0 | [place] off | | | | 9 | [...] 04/13/19 1219 by | | eral | vtpn-pds-pniacd catheter system; | Dominga Steen RN | [...] Dx); | | | | | [place] [address] | Presence of | | | | | [phone] | permanent cardiac | | | | [...] | | | | | | [place] [address] | | | | | | [phone] | | | | | | | [...] 8:23 | | | | | Starting [facility] 04/13/19 at 0823, | | AM PDT [...]
--- OUTSIDE RECORDS SUMMARY | ~2019-11-12 | XMS | Encounter Summary ---
Demographics + + + | Address | [address] | | | [place] [address] | + + + | Home Phone [...] Team Providers + +------+ + | Care Devulcanizer Charger Name | Role | Phone | + [...] | Emmanuel E, MD | [address] [place] | | | | | unspecified | [address] | [place], | | | | | type | [place], [place] | [place] | | | | | Abdominal | [address] [place] | [address] | | | | | cramping | [place], [place] | Phone: | | | | | Generalized | [address] | [phone] | | | | | abdominal | Phone: | Fax: | | | | | pain | [phone] | [phone] | | | | | Procedures | Fax: | | | | | | CT Abdomen | [phone] | | | | | | Pelvis [...] 2019 | | GASTROENTEROLOGY | [address] [place], [place] | (stomach cramps and | | | | [address] [place] | [address] [place], [place] | liquid stool) | | | | [address] [place], [place] | [address] | | | | | [address] | | | | | | [phone] | | | +--------+ + + + [...] Dx); | | | | | [place] [address] | Presence of | | | | | [phone] | permanent cardiac | | | | [...] W | | | | | | [place], | | | | | | [place] [address] | | | | | | [phone] | | | | | | | [...]
--- OUTSIDE RECORDS SUMMARY | ~2019-11-12 | XMS | Encounter Summary ---
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 [address] | | | | | | Procedures | [address] | | | | | | [address] | [address] | | | | | | Myelography | [place], [place] | | | | | | Cervical | [address] | | | | | | Spine | Phone: | | | | | | | [phone] | | | | | | | Fax: | | | | | | | [phone] | | +--------+--------+ + + + + [...] + + | 06/04/ | Hospital | [facility] | Saria[place], | Cervical spinal | | 2016 | Encounter | MED CTR [address] | Marietta Mason CLOTH PRINTING UTILITY WORKER [address] | stenosis | | | | [place], | [address] | | | | | [place] [address] | [place] [address] | | | | | [phone] | [phone] | | | | | | | [...] + + + +---------+ + + | Cham[place]-3 Fatty | CAPS, one capsule by | [...] Dx); | | | | | [place] [address] | Presence of | | | | | [phone] | permanent cardiac | | | | [...] | | | | | | [place], | | | | | | [place] [address] | | | | | | [phone] | | | | | | | [...]
--- OUTSIDE RECORDS SUMMARY | ~2019-11-12 | XMS | Encounter Summary ---
Demographics + + + | Address | [address] | | | [place] [address] | + + + | Home Phone [...] Team Providers + +------+ + | Care Ehs Engineer Name | Role | Phone | [...] [address] | | | | | [place], [place] | [place], [place] | | | | | [address] | [address] | | | | | [phone] | | | +--------+ + + + [...] 2019 | Monitor | | MD [address] [place] | Interrogation | | | | | [place], | (Primary Dx); | | | | | [place] [address] | Presence of | | | | | [phone] | permanent cardiac | | | | [...] | | | | | | [place] [address] | | | | | | [phone] | | | | | | | | +--------+ + + + + documented as of this encounter Visit Diagnoses Not on filedocumented in this encounter"
--- OUTSIDE RECORDS SUMMARY | ~2019-11-12 | XMS | Encounter Summary ---
Demographics + + + | Address | [address] | | | [place] [address] | + + + | Home Phone [...] Team Providers + +------+ + | Care Tower Erector Name | Role | Phone | [...] + | 11/05/ | Telephone | [facility] | Daljit Singletary, | Chest Pain | | 2016 | | CARDIOLOGY [address] | MD [address] [place] | | | | | [place], | [place], | | | | | [place] [address] | [place] [address] | | | | | [phone] | [phone] | | | | | | | [...] | | MD Sim [facility] | Interrogation | | | | | [place], | (Primary Dx); | | | | | [place] [address] | Presence of | | | | | [phone] | permanent cardiac | | | | [...] W | | | | | | [place], | | | | | | [place] [address] | | | | | | [phone] | | | | | | | | +--------+ + + + + documented as of this encounter Visit Diagnoses Not on filedocumented in this encounter"
--- OUTSIDE RECORDS SUMMARY | ~2019-11-12 | XMS | Encounter Summary ---
Demographics + + + | Address | [address] | | | [place] [address] | + + + | Home Phone [...] + +------+ + | Care Clinical Team Manager Name | Role | Phone | + +------+ + | Kirk French MD | PCP | | + +------+ + Encounter Details +--------+ + + + + | Date | Type | Department | Care Team | Description | +--------+ + + + + | 01/05/ | Anesthesia | [facility] | Jarett Barakat | | | 2019 | Event | MED CTR MP INTRA OP | P, MD [address] | | | | | [address] | [place], [place] | | | | | [place], [place] | [address] | | | | | [address] | [phone] | | | | | [phone] | | | +--------+ + + + [...] explained and consent obtained. Patient transported to [facility], | | | 4 | | Monitors [...] | 01/05/19950 by | | eral | [id number]-[id number] catheter system; | Kasie Natarajan RN | [...] Dx); | | | | | [place] [address] | Presence of | | | | | [phone] | permanent cardiac | | | | [...] W | | | | | | [place], | | | | | | [place] [address] | | | | | | [phone] | | | | | | | [...] | | | | | Vomiting, Starting [facility] 01/05/19 at | | AM PST [...]
--- OUTSIDE RECORDS SUMMARY | ~2019-11-12 | XMS | Encounter Summary ---
Demographics + + + | Address | [address] | | | [place] [address] | + + + | Home Phone [...] Team Providers + +------+ + | Care Placement Director Name | Role | Phone | [...] | 03/02/ | Telephone | [facility] | Daljit Singletary, | Other | | 2013 | | CARDIOLOGY [address] | MD [address] [place] | | | | | [place], | [place], | | | | | [place] [address] | [place] [address] | | | | | [phone] | [phone] | | | | | | | [...] | | MD Sim [facility] | Interrogation | | | | | [place], | (Primary Dx); | | | | | [place] [address] | Presence of | | | | | [phone] | permanent cardiac | | | | [...] W | | | | | | [place], | | | | | | [place] [address] | | | | | | [phone] | | | | | | | | +--------+ + + + + documented as of this encounter Visit Diagnoses Not on filedocumented in this encounter"
--- OUTSIDE RECORDS SUMMARY | ~2019-11-12 | XMS | Encounter Summary ---
Demographics + + + | Address | [address] | | | [place] [address] | + + + | Home Phone [...] Providers + +------+ + | Care Crop Grain Or Livestock Farm Manager Name | Role | Phone | [...] Provider Unknown | | | | | [place], [place] | [phone] | | | | | [address] | | | | | | [phone] | | | +--------+ + + + [...] + + + +---------+ + + | Andale-3 Fatty | CAPS, one capsule by | [...] 2019 | Monitor | | MD [address] [facility] | Interrogation | | | | | [place], | (Primary Dx); | | | | | [place] [address] | Presence of | | | | | [phone] | permanent cardiac | | | | [...] W | | | | | | [place], | | | | | | [place] [address] | | | | | | [phone] | | | | | | | [...]
--- OUTSIDE RECORDS SUMMARY | ~2019-11-12 | XMS | Encounter Summary ---
Demographics + + + | Address | [address] | | | [place] [address] | + + + | Home Phone [...] | Phone | + +------+ + | Micahel Amanda DO | PCP | | + +------+ + Reason for Visit +--------+ + | Reason | Comments | +--------+ + | Other | unable to take the isosorbide | +--------+ + Encounter Details +--------+ + + + + | Date | Type | Department | Care Team | Description | +--------+ + + + + | 02/01/ | Telephone | [facility] | Silvia, | Other (unable to | | 2013 | | CARDIOLOGY [address] | [place] [address] | take the isosorbide) | | | | [place], | [place], | | | | | [place] [address] | [place] [address] | | | | | [phone] | [phone] | | | | | | | [...] Dx); | | | | | [place] [address] | Presence of | | | | | [phone] | permanent cardiac | | | | [...] W | | | | | | [place], | | | | | | [place] [address] | | | | | | [phone] | | | | | | | | +--------+ + + + + documented as of this encounter Visit Diagnoses + + | Diagnosis | + + | Coronary artery disease - Primary Coronary atherosclerosis of unspecified type of | | vessel, [place] or graft | + + | Hypertension Unspecified essential hypertension | + + | Hyperlipidemia Other and unspecified hyperlipidemia | + + documented in this encounter"
--- OUTSIDE RECORDS SUMMARY | ~2019-11-12 | XMS | Encounter Summary ---
Demographics + + + | Address | [address] | | | [place] [address] | + + + | Home Phone [...] Team Providers + +------+ + | Care Gandy Dancer Name | Role | Phone | [...] + + | 12/29/ | Office | [facility] | Silvia, | Ascending thoracic | | 2017 | Visit | CARDIOLOGY [address] | [place] [address] | aortic aneurysm | | | | [place], | [place], | (HCC) (Primary Dx); | | | | [place] [address] | [place] [address] | Coronary artery | | | | [phone] | [phone] | disease involving | | | | | | three affiliated coronary | | | | | | artery of three affiliated | | | | | | heart [...] of non-critical coronary artery d isease involving three affiliated coronary artery of three affiliated heart without angina pectoris, essential h ypertension, [...] start Losartan 25 mg once every day, [facility] blood pressure log, and follow up in 3 months. Since that time, he went to the ER in [facility] with chest pain at the end [...] Preventative health care Coronary artery disease involving three affiliated coronary artery of three affiliated heart without angina pectoris Cannabis abuse, daily [...] 3RD DOSE, CALL 911 100 tablet 3 Dun[place]-3 Fatty Acids (SALMON OIL-1000 PO) CAPS, one capsule by mouth daily twice daily ONE TOUCH DELICA LANCETS [facility] Check glucose as needed for hypoglycemia 100 [...] was found Confirmed by SYDNI SINGLETARY MD ([id number]) on 06/23/2016 2:08:15 PM LAB RESULTS reviewed during visit today primarily from [facility]: LIPID Lab Results Component [...] PLTEX 129* 05/12/2016 I reviewed records from [facility] for office visit on [...] He is in class I of the [place] Heart Ass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 On physical examination there are no signs of fl uid overload. 2. Non-critical Coronary artery disease involving three affiliated coronary a rtery of three affiliated heart without angina pectoris: A. Normal exercise [...] to go back in 3 days to [place] for an attempt of ablation under general [...] is a normal stable device function. Estimated enEvolvi ng battery longevity is 5 years.. 5. Lightheadedness and dizziness/ presyncope: A. Episode of [facility]ync[facility], thought to have vasovagal symptoms. [...] this chart may have been created with MTailor voice recognition software. Occasi onal wrong-word or [...] Dx); | | | | | [place] [address] | Presence of | | | | | [phone] | permanent cardiac | | | | [...] | | | | | | [place] [address] | | | | | | [phone] | | | | | | | | +--------+ + + + + documented as of this encounter Visit Diagnoses + + | Diagnosis | + + | Ascending thoracic aortic aneurysm (HCC) - Primary Thoracic aneurysm without mention | | of rupture | + + | Coronary artery disease involving three affiliated coronary artery of three affiliated heart without | | angina pectoris | + + | Essential hypertension with goal blood pressure less than 130/80 | + + | Hyperlipidemia, mixed Mixed hyperlipidemia | + + documented in this encounter
--- OUTSIDE RECORDS SUMMARY | ~2019-11-12 | XMS | Encounter Summary ---
Demographics + + + | Address | [address] | | | [place] [address] | + + + | Home Phone [...] Providers + +------+ + | Care Policy Analyst Name | Role | Phone | + +------+ + PCP | Unavailable | + +------+ + Encounter Details +--------+ + + + + | Date | Type | Department | Care Team | Description | +--------+ + + + + | 01/14/ | Hospital | [facility] | Deburi, | BACKACHE NOS | | 2004 | Encounter | MEDICAL CENTER | MD [address] | | | | | CLINICAL DECISION | [place] | | | | | [address] | [place] [address] | | | | | [place], [place] | [phone] | | | | | [address] | | | | | | [phone] | | | +--------+ + + + [...] 2019 | Monitor | | [address] [place] | Interrogation | | | | | [place], | (Primary Dx); | | | | | [place] [address] | Presence of | | | | | [phone] | permanent cardiac | | | | [...] W | | | | | | [place], | | | | | | [place] [address] | | | | | | [phone] | | | | | | | | +--------+ + + + + documented as of this encounter Visit Diagnoses + + | Diagnosis | + + | Backache, unspecified | + + documented in this encounter"
--- OUTSIDE RECORDS SUMMARY | ~2019-11-12 | XMS | Encounter Summary ---
Demographics + + + | Address | [address] | | | [place] [address] | + + + | Home Phone [...] Team Providers + +------+ + | Care Projects Manager Name | Role | Phone | [...] [address] | | | | | | [place], [place] | (Fax) | | | | | [address] | | | | | | [phone] | | | +--------+ + + + [...] 2019 | Monitor | | [address] [place] | Interrogation | | | | | [place], | (Primary Dx); | | | | | [place] [address] | Presence of | | | | | [phone] | permanent cardiac | | | | [...] | | | | | | [place] [address] | | | | | | [phone] | | | | | | | | +--------+ + + + + documented as of this encounter Visit Diagnoses Not on filedocumented in this encounter"
--- OUTSIDE RECORDS SUMMARY | ~2019-11-12 | XMS | Encounter Summary ---
Demographics + + + | Address | [address] | | | [place] [address] | + + + | Home Phone [...] Providers + +------+ + | Care Court Manager Name | Role | Phone | + +------+ + PCP | Unavailable | + +------+ + Encounter Details +--------+ + + + + | Date | Type | Department | Care Team | Description | +--------+ + + + + | 09/29/ | Hospital | [facility] | | | | 1995 | Encounter | MED CTR EMERGENCY | | | | | | [place] [address] | | | | | | [place] | | | | | | [address] | | | | | | [phone] | | | +--------+ + + + [...] Dx); | | | | | [place] [address] | Presence of | | | | | [phone] | permanent cardiac | | | | [...] W | | | | | | [place], | | | | | | [place] [address] | | | | | | [phone] | | | | | | | | +--------+ + + + + documented as of this encounter Visit Diagnoses Not on filedocumented in this encounter"
--- OUTSIDE RECORDS SUMMARY | ~2019-11-12 | XMS | Encounter Summary ---
Demographics + + + | Address | [address] | | | [place] [address] | + + + | Home Phone [...] Providers + +------+ + | Care General Ledger Bookkeeper Name | Role | Phone | [...] + + | 05/14/ | Office | [facility] | [place], | Coronary artery | | 2013 | Visit | CARDIOLOGY [address] | [place] [address] | disease (Primary | | | | [place], | [place], | Dx); Hypertension; | | | | [place] [address] | [place] [address] | Hyperlipidemia; | | | | [phone] | [phone] | Syncope; Other chest | | | [...] needed for Chest pain. 25 tablet 12 R[place]-3 Fatty Acids (SALMON OIL-1000 PO) CAPS, one [...] cannot completely be ruled out. D. [facility] 12/25/13, shows noncritical coronary artery [...] exercising. He is in class II of [place] Heart Ass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 There are no [...] ventricular arrhythmia performed by Dr. Gambino at [facility] on 01/30/2013. Patient had spontaneous PVCs [...] to go back in 3 days to [place] for an attempt of ablation under general [...] palpitations.. He is in class II of [place] Heart Ass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 There are no [...] bring in his blood pressure logs from [facility] 5. Lightheadedness and dizziness/ presyncope: A. [...] made to ensure accuracy; however, inadvertent computerized online marketing specialist errors may be pre sent. Electronically signed by: PARISA Russell 05/14/2014 7:40 documented in this encounter Plan of Treatment +--------+ + + + + | Date | Type | Specialty | Care Team | Description | +--------+ + + + + | 11/20/ | Implant | Cardiology | Daljit Singletary, | Remote Device | | 2018 | Monitor | | [address] [place] | Interrogation | | | | | [place], | (Primary Dx); | | | | | [place] [address] | Presence of | | | | | [phone] | permanent cardiac | | | | [...] | | | | | [place], | | | | | | [place] [address] | | | | | | [phone] | | | | | | | [...] of unspecified type of | | vessel, [place] or graft | + + | Hypertension Unspecified essential hypertension | + + | Hyperlipidemia Other and unspecified hyperlipidemia | + + | Syncope Syncope and collapse | + + | Other chest pain | + + | Chest pain Chest pain, unspecified | + + documented in this encounter
--- OUTSIDE RECORDS SUMMARY | ~2019-11-12 | XMS | Encounter Summary ---
Demographics + + + | Address | [address] | | | [place] [address] | + + + | Home Phone [...] Providers + +------+ + | Care Community Relations Rep Name | Role | Phone | + +------+ + | Michael Amanad DO | PCP | | + +------+ + Encounter Details +--------+ + + + + | Date | Type | Department | Care Team | Description | +--------+ + + + + | 06/26/ | Hospital | [facility] | Michael Amanda, | Diplopia | | 2012 | Encounter | MED CTR LABORATORY | DO [address] | | | | | [address] [place] | [place], [place] | | | | | [place], [place] | [address] | | | | | [address] | | | | | | [phone] | | | +--------+ + + + [...] + + + +---------+ + + | [place]-3 Fatty | CAPS, one capsule by | [...] Dx); | | | | | [place] [address] | Presence of | | | | | [phone] | permanent cardiac | | | | [...] | | | | | | [place] [address] | | | | | | [phone] | | | | | | | [...] + | [facility] | [address] | [place], [place] | [phone] | | [facility] | | [address] | | | - LABORATORY | | | | + + + + + | [facility] | [address] | [place], [place] | | | [facility] | | [address] | | | - LABORATORY | | [...] [address] | [place] | [phone] | | [facility] | | [address] | | | - LABORATORY | | | | + + + + + | [facility] | [address] | [place] | | | [facility] | | [address] | | | - LABORATORY | | [...] + | [facility] | [address] | [place] | [phone] | | [facility] | | [address] | | | - LABORATORY | | | | + + + + + | [facility] | [address] | [place], [place] | | | [facility] | | [address] | | | - LABORATORY | | [...] + | [facility] | [address] | [place] | [phone] | | [facility] | | [address] | | | - LABORATORY | | | | + + + + + | [facility] | [address] | [place], [place] | | | [facility] | | [address] | | | - LABORATORY | | [...] + | [facility] | [address] | [place] | [phone] | | [facility] | | [address] | | | - LABORATORY | | | | + + + + + | [facility] | [address] | [place] | | | [facility] | | [address] | | | - LABORATORY | | [...] [facility] [place] | | | | [facility] | | MEDICAL | | | [...] + | [facility] | [address] | [place] | [phone] | | [facility] | | [address] | | | - LABORATORY | | | | + + + + + | [facility] | [address] | [place] | | | [facility] | | [address] | | | - LABORATORY | | | | + + + + + documented in this encounter Visit Diagnoses + + | Diagnosis | + + | Diplopia | + + documented in this encounter"
--- OUTSIDE RECORDS SUMMARY | ~2019-11-12 | XMS | Encounter Summary ---
Demographics + + + | Address | [address] | | | [place] [address] | + + + | Home Phone [...] Providers + +------+ + | Care Document Manager Name | Role | Phone | + +------+ + PCP | Unavailable | + +------+ + Encounter Details +--------+ + + + + | Date | Type | Department | Care Team | Description | +--------+ + + + + | 01/27/ | [facility] | [facility] | Jonathan, | | | 2008 | Encounter | MED CTR EMERGENCY | Martell Cr MD [address] | | | | | CENTER [address] | [place] | | | | | [place] | [place] [address] | | | | | [address] | [phone] | | | | | [phone] | | | +--------+ + + + [...] Dx); | | | | | [place] [address] | Presence of | | | | | [phone] | permanent cardiac | | | | [...] | | | | | | [place] [address] | | | | | | [phone] | | | | | | | | +--------+ + + + + documented as of this encounter Visit Diagnoses Not on filedocumented in this encounter"
--- OUTSIDE RECORDS SUMMARY | ~2019-11-12 | XMS | Encounter Summary ---
Demographics + + + | Address | [address] | | | [place] [address] | + + + | Home Phone [...] Team Providers + +------+ + | Care Urban Design Consultant Name | Role | Phone | + +------+ + PCP | Unavailable | + +------+ + Encounter Details +--------+ + + + + | Date | Type | Department | Care Team | Description | +--------+ + + + + | 06/23/ | [facility] | [facility] | Arthur Page MD | | | 2007 - | Encounter | MED CTR MED ONC | [address] [facility] | | | | | [address] [place] | [place] | | | 06/25/ | | [place] [address] | [address] | | | 2007 | | [phone] | | | +--------+ + + + [...] Dx); | | | | | [place] [address] | Presence of | | | | | [phone] | permanent cardiac | | | | [...] | | | | | | [place], | | | | | | [place] [address] | | | | | | [phone] | | | | | | | | +--------+ + + + + documented as of this encounter Visit Diagnoses Not on filedocumented in this encounter"
--- OUTSIDE RECORDS SUMMARY | ~2019-11-12 | XMS | Encounter Summary ---
Demographics + + + | Address | [address] | | | [place] [address] | + + + | Home Phone [...] Team Providers + +------+ + | Care Hide Examiner Name | Role | Phone | [...] | RN | | | | | [place], | | | | | | [place] [address] | | | | | | [phone] | | | +--------+ + + + [...] Dx); | | | | | [place] [address] | Presence of | | | | | [phone] | permanent cardiac | | | | [...] | | | | | | [place], | | | | | | [place] [address] | | | | | | [phone] | | | | | | | | +--------+ + + + + documented as of this encounter Visit Diagnoses Not on filedocumented in this encounter"
--- OUTSIDE RECORDS SUMMARY | ~2019-11-12 | XMS | Encounter Summary ---
Demographics + + + | Address | [address] | | | [place] [address] | + + + | Home Phone [...] Providers + +------+ + | Care Principal Android Developer Name | Role | Phone | [...] | | | | of feces, | [place], [place] | [address] | | | | | unspecified | [address] [place] | [place], [place] | | | | | fecal | [place], [place] | [address] | | | | | incontinence | [address] | Phone: | | | | | type | Phone: | [phone] | | | | | Diarrhea, | [phone] | Fax: | | | | | unspecified | Fax: | [phone] | | | | | type | [phone] | | +--------+ + + + + [...] 2018 | | GASTROENTEROLOGY | [address] [place], [place] | | | | | [address] [place] | [address] [place], [place] | | | | | [address] [place], [place] | [address] | | | | | [address] | | | | | | [phone] | | | +--------+ + + + [...] Dx); | | | | | [place] [address] | Presence of | | | | | [phone] | permanent cardiac | | | | [...] | | | | | | [place] [address] | | | | | | [phone] | | | | | | | [...]
--- OUTSIDE RECORDS SUMMARY | ~2019-11-12 | XMS | Encounter Summary ---
Demographics + + + | Address | [address] | | | [place] [address] | + + + | Home Phone [...] Providers + +------+ + | Care Materials Management Manager Name | Role | Phone [...] | | | | stenosis | L, [address] | | | | | | Procedures | [address] | | | | | | CT | [address] | | | | | | Myelography | [place], [place] | | | | | | Cervical | [address] | | | | | | Spine | Phone: | | | | | | | [phone] | | | | | | | Fax: | | | | | | | [phone] | | +--------+--------+ + + + + [...] + + | 06/04/ | Hospital | [facility] | Sariah, | Cervical spinal | | 2016 | Encounter | MED [facility] [address] | [place] [address] | stenosis | | | | [place], | [address] | | | | | [place] [address] | [place] [address] | | | | | [phone] | [phone] | | | | | | | [...] + + + +---------+ + + | [place]-3 Fatty | CAPS, one capsule by | [...] Dx); | | | | | [place] [address] | Presence of | | | | | [phone] | permanent cardiac | | | | [...] W | | | | | | [place], | | | | | | [place] [address] | | | | | | [phone] | | | | | | | [...]
--- OUTSIDE RECORDS SUMMARY | ~2019-11-12 | XMS | Encounter Summary ---
Demographics + + + | Address | [address] | | | [place] [address] | + + + | Home Phone [...] Team Providers + +------+ + | Care Assurance Assistant Name | Role | Phone | + +------+ + PCP | Unavailable | + +------+ + Encounter Details +--------+ + + + + | Date | Type | Department | Care Team | Description | +--------+ + + + + | 05/24/ | Hospital | [facility] | Chi Fang | Unspecified Chest | | 2008 - | Encounter | MEDICAL CENTER | MD Kelsey [address] | Pain | | | | CLINICAL DECISION | CHRISTOPH HERNANDEZ | | | 05/25/ | | [address] | [address] | | | 2008 | | [place], [place] | [phone] | | | | | [address] | | | | | | [phone] | | | +--------+ + + + [...] 2018 | Monitor | | MD [address] [place] | Interrogation | | | | | [place], | (Primary Dx); | | | | | [place] [address] | Presence of | | | | | [phone] | permanent cardiac | | | | [...] W | | | | | | [place], | | | | | | [place] [address] | | | | | | [phone] | | | | | | | [...] Performed At | + + + | [id number] | | | Page 1 RADIOLOGY | | | CDU 83040/ | | | [facility] | | | CENTER NAME: PINA [place] [address] | | | | | | | | | DATE OF : 1960 ORDER NUMBER: | | | [id number] EXAM DATE/TIME: 05/25/2009 08:00 A ORDERING PHYSICIAN: | | | CHI FANG ORDER DETAIL: [id number] / / [facility] EXAM | | | DESCRIPTION: NM [...] | | administration of 14.9 mCi of kipicuxiqx-68l-izajyqi Myoview. Stress | | | images postinjection [...] | | | images. Prone images demonstrate church of the inferior wall | | | [...] | | A P | | | TSG/[id number]/ cc: MD FEMI FOSS, | | | MD CHI FANG, MD AMY BANEGAS DO | | + + + + + | Procedure Note | + + | Kalpesh Brown Conversion - 07/17/2019 2:13 AM PDT | | [id number] Page 1 | | RADIOLOGY CDU 46094/ | | OPO | | [facility] NAME: PINA GAY | | [place] [address] | | | | DATE OF : 1960 | | | | ORDER NUMBER: [id number] | | EXAM DATE/TIME: 05/25/2009 08:00 A [...] administration of 14.9 mCi | | of btjevwtnyi-57f-oizuuzq Myoview. Stress images postinjection of 47.7 | [...] | | | | Prone images demonstrate church of the inferior wall nicely. | | [...] | A | | P | | TSG/dc/[id number]/ | | cc: ANGELA MARADIAGA MD | | FEMI MARIE MD | | CHI FAGN MD | | AMY BANEGAS DO | + + ECHO Complete (05/25/2009 7:50 AM PDT) + + | Specimen | + + | | + + + + + | Narrative | Performed At | + + + | [id number] | | | Page 1 ECHO [facility] NAME: | | | [place] [address] MEDICAL RECORD #: | | | [id number] | | | DATE OF : 1960 ORDER | | | NUMBER: [id number] EXAM DATE/TIME: 05/25/2009 07:34 PERFORMING | | [...] Excursion: | | | 1.89 cm E-F [place]: 0.08 m/s HR: 43.51 BPM AV maxP.11 [...] m/s LVOT VTI: 24.35 cm MV A Brvao: 0.70 m/s | | | MV DecT: [...] | | | 0.33 m/s TV Dec [place]: 1.73 m/s2 TV Dec Time: 344.24 ms TV | | | E Bravo: 0.59 m/s TV E/A Ratio: 1.80 TV maxP.40 mmHg TV | | | meanP.44 mmHg TV Vmax: 0.59 m/s TV Vmean: 0.30 m/s TV | | | VTI: 22.88 cm Farmworker Livestock: ANTHONY Authenticated by: Edwardo Tee | | | Carlos WINKLER Report Date/Time: 05-25-2009 10:19:52 | | + + + + + | Procedure Note | + + | Kalpesh Brown Conversion - 07/17/2019 2:13 AM [facility] [id number] | | Page [address] [place] [address] NAME: [place] | | [address] : ACCOUNT #: | | [id number]: DATE OF : 1960ORDER NUMBER: | | [id number] DATE/TIME: 05/25/2009 07:34PERFORMING PHYSICIAN: Edwardo Gonzalez | [...] mlLAESV Index (A-L): 26.03 ml/m2LAAs A2C: 14.93 [id number] A-L | | A2C: 44.50 mlLALs A2C: 4.25 cmLAAs A4C: 18.42 ap5OEHIR A-L A4C: 55.79 mlLALs | | A4C: 5.16 cmAo Diam: 3.91 cmAV Cusp: 2.23 cmLA Diam: 3.79 cmLA/Ao: 0.96%FS: | | 43.37 %EDV(Teich): 146.19 mlEF(Teich): 73.99 %ESV(Teich): 38.01 mlIVSd: 1.57 | | cmIVSs: 1.79 cmLVIDd: 5.48 cmLVIDs: 3.10 cmLVPWd: 1.32 cmLVPWs: 1.79 | | cmSV(Teich): 108.18 mlD-E Excursion: 1.89 cmE-F [place]: 0.08 m/sHR: 43.51 BPMAV | | maxP.11 mmHgAV meanP.33 mmHgAV Vmax: 1.74 m/Zabrina Vmean: 1.06 m/Zabrina VTI: | | 35.51 cmAVA Vmax: 2.77 cm2AVA (VTI): 2.54 cv8IKEK Dopp: 3.00 l/pegi9NYBM Dopp: | | 6.33 l/minHR: 70.25 BPMLVOT maxP.78 mmHgLVOT meanP.02 mmHgLVSI Dopp: | | 42.76 ml/m2LVSV Dopp: 90.23 mlLVOT Vmax: 1.30 m/sLVOT Vmean: 0.80 m/sLVOT VTI: | | 24.35 cmMV A Bravo: 0.70 m/sMV DecT: 242.46 msMV E Bravo: 0.91 m/sMV E/A Ratio: | | 1.31MV maxP.40 mmHgMV meanP.82 mmHgMV Vmax: 0.92 m/sMV Vmean: 0.37 m/sMV | | VTI: 26.47 cmMVA (VTI): 3.40 td8Iezmsq e': 0.08 m/sSeptal E/e': 11.24HR: | | 60.55 BPMPV maxP.04 mmHgPV meanP.39 mmHgPV Vmax: 0.87 m/sPV Vmean: 0.55 | | m/sPV VTI: 19.09 cmRAP: 5 mmHgRVSP: 21.72 mmHgTR maxP.72 mmHgTR Vmax: | | 2.04 m/sTV A Bravo: 0.33 m/sTV Dec [place]: 1.73 m/s2TV Dec Time: 344.24 msTV E Bravo: | | 0.59 m/sTV E/A Ratio: 1.80TV maxP.40 mmHgTV meanP.44 mmHgTV Vmax: 0.59 | | m/sTV Vmean: 0.30 m/sTV VTI: 22.88 cm Farmworker Livestock: KVWAuthenticated by: Edwardo Tee | | Carlos [...] | |D-E Excursion: 1.89 cm | |E-F [place]: 0.08 m/s | |HR: 43.51 BPM | [...] A Bravo: 0.33 m/s | |TV Dec [place]: 1.73 m/s2 | |TV Dec Time: 344.24 ms | |TV E Bravo: 0.59 m/s | |TV E/A Ratio: 1.80 | |TV maxP.40 mmHg | |TV meanP.44 mmHg | |TV Vmax: 0.59 m/s | |TV Vmean: 0.30 m/s | |TV VTI: 22.88 cm | | | |Farmworker Livestock: KVW | |Authenticated by: Edwardo Gonzalez MD | |Report Date/Time: 05-25-2009 10:19:52 | + + CT Head wo Contrast (05/24/2009 12:58 PM PDT) + + | Specimen | + + | | + + + + + | Narrative | Performed At | + + + | [id number] | | | Page 1 RADIOLOGY | | | CDU 54694/ | | | [facility] | | | CENTER NAME: [place] [address] | | | | | | | | | DATE OF : 1960 ORDER NUMBER: | | | [id number] EXAM DATE/TIME: 05/24/2009 12:47 P ORDERING PHYSICIAN: [...] | | asymmetrically dense vessel about the [place]. No | | | hydrocephalus. [...] 08:45 P P P | | | [facility]/tp/[id number]/ cc: MD ANGELA AVENDAÑO MD | | | MD AMY HAM DO | | + + + + + | Procedure Note | + + | Kalpesh Brown Conversion - 07/17/2019 2:13 AM PDT | | [id number] Page 1 | | RADIOLOGY CDU 38010/ | | OPO | | [facility] NAME: PINA GAY | | [place] [address] | | | | DATE OF : 1960 | | | | ORDER NUMBER: [id number] | | EXAM DATE/TIME: 05/24/2009 12:47 P [...] is no asymmetrically dense vessel about the [place]. No | | hydrocephalus. Some [...] P | | P | | [facility]/tp/[id number]/ | | cc: VINAY HILL MD | | ANGELA MARADIAGA MD | | FEMI MARIE MD | | AMY BANEGAS, DO | + + XR Chest 2 Vws (05/24/2009 11:31 AM PDT) + + | Specimen | + + | | + + + + + | Narrative | Performed At | + + + | [id number] | | | Page 1 RADIOLOGY | | | [facility] 72017/ | | | OPO [facility] MEDICAL | | | [place] [address] | | | | | | | | | DATE OF : 1960 ORDER NUMBER: | | | [id number] EXAM DATE/TIME: 05/24/2009 11:19 A ORDERING PHYSICIAN: [...] DT: | | | 05/24/2009 05:38 P [id number]/[id number]/ cc: VINAY HILL MD | | | MD FEMI FOSS MD JOSEPH | | | P BASSAM DO | | + + + + + | Procedure Note | + + | Kalpesh Brown Conversion - 07/17/2019 2:13 AM PDT | | [id number] Page 1 | | RADIOLOGY CDU 13877/ | | OPO | | [facility] NAME: PINA GAY | | [place] [address] | | | | DATE OF : 1960 | | | | ORDER NUMBER: [id number] | | EXAM DATE/TIME: 05/24/2009 11:19 A [...] P | | P | | [facility]//[id number]/ | | cc: VINAY HILL MD | | ANGELA MARADIAGA MD | | FEMI MARIE MD | | AMY BANEGAS DO | + + documented in this encounter Visit Diagnoses + + | Diagnosis | + + | Chest pain, unspecified | + + documented in this encounter"
--- OUTSIDE RECORDS SUMMARY | ~2019-11-12 | XMS | Encounter Summary ---
Demographics + + + | Address | [address] | | | [place] [address] | + + + | Home Phone [...] | [facility] | | [...] Team Providers + +------+ + | Care Exceptional Children Teacher Name | Role | Phone | [...] + + | 08/29/ | Office | [facility] | [place], | Essential | | 2015 | Visit | CARDIOLOGY [address] | [address] | hypertension | | | | [place], | [place], | (Primary Dx); | | | | [place] [address] | [place] [address] | Coronary artery | | | | [phone] | [phone] | disease involving | | | | | | deering coronary | | | | | | [...] was seen in the emergency room at [facility] on 08/23/20 15 and the ER physician reviewed his chart saying that there were 2 ultrasounds from [facility] both of them are clear of DVT but reveal some venous insufficiency. Today, arian ent tells me that he started having swelling in both his feet within a week when he got to [facility]. He had extensive traveling. He went [...] Preventative health care Coronary artery disease involving deering coronary artery without angina pectoris Cannabis abuse, [...] by mouth every evening. 90 tablet 3 [facility] Natural Products (OSTEO BI-FLEX/5-LOXIN ADVANCED PO) Take [...] 3rd dose, call 911 100 tablet 3 [place]-3 Fatty Acids (SALMON OIL-1000 PO) CAPS, [...] Daily. to reduce urinary frequenc y Lot #[id number], exp 07/2016 (Patient taking differently: Take 8 mg by mouth Daily. PATIENT STA YOSELIN NO LONGER TAKING THIS MEDICATION. STATED ON 08/29/2015. to reduce urinary frequency Lot #[id number], exp 07/2016) 21 capsule 0 Specialty Vitamins [...] 163 07/26/2014 I reviewed records from [facility] for emergency department visit o n [...] brought reports to the emergency room at [facility] and according to the not es [...] ventricular arrhythmia performed by Dr. Gambino at [facility] on 01/30/2013. Patient had spontaneous [...] to go back in 3 days to [place] for an attempt of ablation under [...] dizziness. He is in class I-II of [place] 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 T here are [...] this chart may have been created with iWantoo voice recognition software. Occasi onal wrong-word or [...] 2019 | Monitor | | MD [address] [place] | Interrogation | | | | | [place], | (Primary Dx); | | | | | [place] [address] | Presence of | | | | | [phone] | permanent cardiac | | | | [...] W | | | | | | [place], | | | | | | [place] [address] | | | | | | [phone] | | | | | | | [...] the | | | | PDT | deering coronary | results section. | | | [...] HISTORY: DVT. COMPARISON: None. TECHNIQUE: Compression | [facility] | | sonography was performed from the groin through the popliteal fossa | [facility] | | in both lower [...] conveyed to the ordering provider, by the rn cvor, | | | immediately following the exam. [...] to the ordering provider, by the | |rn cvor, immediately following the exam. | | | [...] | [address] | [place] | [phone] | | [facility] | | [address] | | | - IMAGING | | [...] MD | | | | | | ([id number]) on 08/29/2015 | | | | | [...] + + | Coronary artery disease involving deering coronary artery without angina pectoris | + + | DVT (deep venous thrombosis), bilateral | + + documented in this encounter
--- OUTSIDE RECORDS SUMMARY | ~2019-11-12 | XMS | Encounter Summary ---
Demographics + + + | Address | [address] | | | [place] [address] | + + + | Home Phone [...] Team Providers + +------+ + | Care Postdoctoral Scientist Name | Role | Phone | [...] | Aneurysmal | [place], | [address] [place] | | | | | dilatation | PARISA Solis | [place], | | | | | (HCC) | [address] | [place] | | | | | Procedures | [place] | [address] | | | | | ECHO | [place], | Phone: | | | | | Complete | [place] | [phone] | | | | | | [address] | Fax: | | | | | | Phone: | [phone] | | | | | | [phone] | | | | | | | Fax: | | | | | | | [phone] | | +--------+--------+ + + + + Encounter Details +--------+ + + + + | Date | Type | Department | Care Team | Description | +--------+ + + + + | 11/16/ | Orders Only | [facility] [place] | [place], | Aneurysmal | | 2017 | | CARDIOLOGY [address] | PARISA [address] | dilatation (HCC) | | | | [place], | [place], | (Primary Dx) | | | | [place] [address] | [place] [address] | | | | | [phone] | [phone] | | | | | | | [...] | 2019 | Monitor | | [address] [place] | Interrogation | | | | | [place], | (Primary Dx); | | | | | [place] [address] | Presence of | | | | | [phone] | permanent cardiac | | | | [...] | | | | | | [place], | | | | | | [place] [address] | | | | | | [phone] | | | | | | | [...] Room Number SARAH Patient | | | [id number] Date of Study 11/16/2017 Number | | | Visit Number [id number] | | | Referring Physician GURJIT TROY Number | | | ELIZABETHANGELIA SOLIS Date | | | of 1960 Java Jsf Developer ROMAINE | | | MARISSA TIPTON Age 57 year(s) Interpreting | | | GURJIT TROY | | | Interior Design Principal SYDNI SINGLETARY, | | | | | | Gender Male Nurse | | | Stress Amr Physician Procedure Type of | | | Study [...] | | | EF | | | Fkabneqqk47% Left Ventricle Diastolic Dimension: 5.12 cm | [...] Volume: 46.33 ml | | | EF Xohfnstkq25% | | | | | | Left [...] BARRY Room Number SARAH | | Patient [id number] Date of Study 11/16/2017 Number Visit Number | | [id number] Referring Physician GURJIT TROY | | Number NORMA MCLAUGHLINN Date of | | 1960 Java Jsf Developer ROMAINE TIPTON RDCS Age 57 year(s) | | Interpreting GURJIT TROY Interior Design Principal | | SYDNI SINGLETARY MD | | [...] LA Volume: 46.33 ml | | EF Ojlbiovrk16% Left Ventricle Diastolic Dimension: 5.12 cm Systolic [...] LA Volume: 46.33 ml | | EF Kegbtcwfg53% | | | | Left Ventricle | [...]
--- OUTSIDE RECORDS SUMMARY | ~2019-11-12 | XMS | Encounter Summary ---
Demographics + + + | Address | [address] | | | [place] [address] | + + + | Home Phone [...] Team Providers + +------+ + | Care Rougher Operator Name | Role | Phone | [...] + | 06/20/ | Telephone | [facility] | Daljit Singletary, | Chest Pain | | 2018 | | CARDIOLOGY [address] | MD [address] [place] | | | | | [place], | [place], | | | | | [place] [address] | [place] [address] | | | | | [phone] | [phone] | | | | | | | [...] Dx); | | | | | [place] [address] | Presence of | | | | | [phone] | permanent cardiac | | | | [...] W | | | | | | [place], | | | | | | [place] [address] | | | | | | [phone] | | | | | | | | +--------+ + + + + documented as of this encounter Visit Diagnoses Not on filedocumented in this encounter"
--- OUTSIDE RECORDS SUMMARY | ~2019-11-12 | XMS | Encounter Summary ---
Demographics + + + | Address | [address] | | | [place] [address] | + + + | Home Phone [...] Providers + +------+ + | Care Application Security Specialist Name | Role | Phone | + +------+ + PCP | Unavailable | + +------+ + Encounter Details +--------+ + + + + | Date | Type | Department | Care Team | Description | +--------+ + + + + | 06/17/ | Hospital | [facility] | | | | 2007 | Encounter | MED CTR EMERGENCY | | | | | | [place] [address] | | | | | | [place] | | | | | | [address] | | | | | | [phone] | | | +--------+ + + + [...] Dx); | | | | | [place] [address] | Presence of | | | | | [phone] | permanent cardiac | | | | [...] | | | | | | [place], | | | | | | [place] [address] | | | | | | [phone] | | | | | | | | +--------+ + + + + documented as of this encounter Visit Diagnoses Not on filedocumented in this encounter"
--- OUTSIDE RECORDS SUMMARY | ~2019-11-12 | XMS | Encounter Summary ---
Demographics + + + | Address | [address] | | | [place] [address] | + + + | Home Phone [...] Team Providers + +------+ + | Care Judicial Administrative Assistant Name | Role | Phone | + +------+ + PCP | Unavailable | + +------+ + Encounter Details +--------+ + + + + | Date | Type | Department | Care Team | Description | +--------+ + + + + | 09/13/ | [facility] | [facility] | Jonathan, | | | 2009 | Encounter | MED CTR EMERGENCY | Martell Cr MD [address] | | | | | CENTER [address] [place] | [place] | | | | | [place] | [place] [address] | | | | | [address] | [phone] | | | | | [phone] | | | +--------+ + + + [...] Dx); | | | | | [place] [address] | Presence of | | | | | [phone] | permanent cardiac | | | | [...] | | | | | | [place] [address] | | | | | | [phone] | | | | | | | | +--------+ + + + + documented as of this encounter Visit Diagnoses Not on filedocumented in this encounter"
--- OUTSIDE RECORDS SUMMARY | ~2019-11-12 | XMS | Encounter Summary ---
Demographics + + + | Address | [address] | | | [place] [address] | + + + | Home Phone [...] + +------+ + | Care Human Resources Clerk Name | Role | Phone | [...] + | 07/12/ | Office | [facility] | Michael Amanda, | Preventative health | | 2013 | Visit | MEDICINE [place] | DO [address] | care (Primary Dx); | | | | [address] | [place], [place] | Prostate cancer | | | | [place], [place] | [address] | screening; | | | | [address] | | Hypercholesterolemia | | | | [phone] | | ; Hypertension; | | | [...] clear cause was found. He has seen guest service agent and has a rechec k plan. Possible [...] 2018 | Monitor | | MD [address] [place] | Interrogation | | | | | [place], | (Primary Dx); | | | | | [place] [address] | Presence of | | | | | [phone] | permanent cardiac | | | | [...] W | | | | | | [place], | | | | | | [place] [address] | | | | | | [phone] | | | | | | | [...]
--- OUTSIDE RECORDS SUMMARY | ~2019-11-12 | XMS | Encounter Summary ---
Demographics + + + | Address | [address] | | | [place] [address] | + + + | Home Phone [...] Team Providers + +------+ + | Care Culturist Name | Role | Phone | + [...] | Transaction, | | | | | [address] | Provider Unknown | | | | | [place], [place] | [phone] | | | | | [address] | | | | | | [phone] | | | +--------+ + + + [...] + + + +---------+ + + | [place]-3 Fatty | CAPS, one capsule by | [...] | | | | | | | #[id number], exp 07/2016 | | | | | [...] | Interrogation | | | | | [facility] | (Primary Dx); | | | | | [place] [address] | Presence of | | | | | [phone] | permanent cardiac | | | | [...] | | | | | | [place] [address] | | | | | | [phone] | | | | | | | [...]
--- OUTSIDE RECORDS SUMMARY | ~2019-11-12 | XMS | Encounter Summary ---
Demographics + + + | Address | [address] | | | [place] [address] | + + + | Home Phone [...] Providers + +------+ + | Care Business Rules Analyst Name | Role | Phone | [...] | | | | [place] | [address] | | | | | [address] | | | | | | [phone] | | | +--------+ + + + [...] 2018 | Monitor | | MD [address] [place] | Interrogation | | | | | [place], | (Primary Dx); | | | | | [place] [address] | Presence of | | | | | [phone] | permanent cardiac | | | | [...] W | | | | | | [place], | | | | | | [place] [address] | | | | | | [phone] | | | | | | | | +--------+ + + + + documented as of this encounter Visit Diagnoses Not on filedocumented in this encounter"
--- OUTSIDE RECORDS SUMMARY | ~2019-11-12 | XMS | Encounter Summary ---
Demographics + + + | Address | [address] | | | [place] [address] | + + + | Home Phone [...] Providers + +------+ + | Care Program Project Manager Name | Role | Phone [...] + + | 06/26/ | Office | [facility] | MerrickJacek, | Diplopia (Primary | | 2012 | Visit | [facility]ICINE [facility] [address] [facility] | [address] | Dx); Symptomatic | | | | [address] | [place], [place] | PVCs; Hypertension | | | | [place], [place] | [address] | | | | | [address] | | | | | | [phone] | | | +--------+---------+ + + + [...] Double vision will affect your ability to inspecting engineer distance. This means it will be harder [...] or, difficulty with vision, speech or walking [address] [place] [address]. All rights reserve d. This information is [...] his pain clinic visit in the [facility] on Wednesday or he developed double [...] double vision. He was evaluated by Dr Centre and had a normal eye exam, nor [...] tablet by mouth Daily. 30 tablet 6 [place]-3 Fatty Acids (SALMON OIL-1000 PO) CAPS, one [...] | | | | | [place], | (Primary Dx); | | | | | [place] [address] | Presence of | | | | | [phone] | permanent cardiac | | | | [...] | | | | | | [place], | | | | | | [place] [address] | | | | | | [phone] | | | | | | | [...] + | [facility] | [address] | [place] | [phone] | | [facility] | | [address] | | | - LABORATORY | | | | + + + + + | [facility] | [address] | [place] | | | [facility] | | [address] | | | - LABORATORY | | [...] + | [facility] | [address] | [place] | [phone] | | [facility] | | [address] | | | - LABORATORY | | | | + + + + + | [facility] | [address] | [place] | | | [facility] | | [address] | | | - LABORATORY | | [...] | [facility] | | | | [place] Access | | MEDICAL | | [...] [address] | [place] | [phone] | | [facility] | | [address] | | | - LABORATORY | | | | + + + + + | [facility] | [address] | [place], [place] | | | [facility] | | [address] | | | - LABORATORY | | | | + + + + + documented in this encounter Visit Diagnoses + + | Diagnosis | + + | Diplopia - Primary | + + | Symptomatic PVCs Other premature beats | + + | Hypertension Unspecified essential hypertension | + + documented in this encounter
--- OUTSIDE RECORDS SUMMARY | ~2019-11-12 | XMS | Encounter Summary ---
Demographics + + + | Address | [address] | | | [place] [address] | + + + | Home Phone [...] Providers + +------+ + | Care Power Ballast Machine Operator Name | Role | Phone [...] | | CARDIOLOGY [address] | [address] [place] | | | | | [place], | [place], | | | | | [place] [address] | [place] [address] | | | | | [phone] | [phone] | | | | | | | [...] | 2018 | Monitor | | [address] [place] | Interrogation | | | | | [place], | (Primary Dx); | | | | | [place] [address] | Presence of | | | | | [phone] | permanent cardiac | | | | [...] W | | | | | | [place], | | | | | | [place] [address] | | | | | | [phone] | | | | | | | | +--------+ + + + + documented as of this encounter Visit Diagnoses Not on filedocumented in this encounter"
--- OUTSIDE RECORDS SUMMARY | ~2019-11-12 | XMS | Encounter Summary ---
Demographics + + + | Address | [address] | | | [place] [address] | + + + | Home Phone [...] Author | [facility] | | | [...] Team Providers + +------+ + | Care Pension Fund Manager Name | Role | Phone | [...] + + | 05/26/ | Emergency | [facility] | Lizbeth Green | Atypical chest pain | | 2013 | | [facility] | DO Nicole Fink | (Primary Dx); | | | | CENTER [address] | [place], [place] | Anxiety | | | | [place], [place] | [address] | | | | | [address] | | | | | | [phone] | | | +--------+ + + + [...] + + + +---------+ + + | [place]-3 Fatty | CAPS, one capsule by | [...] | 2018 | Monitor | | [address] | Interrogation | | | | | [place], | (Primary Dx); | | | | | [place] [address] | Presence of | | | | | [phone] | permanent cardiac | | | | [...] | | | | | | [place] [address] | | | | | | [phone] | | | | | | | [...] the uneventful IV administration of 80 mL [id number] contrast. Timing of | | contrast bolus [...] + | MISCELLANEOUS LAB | | | [phone] | + +---------+ + + | MISCELANIOUS LAB | | | [phone] | + +---------+ + + Troponin I [...] | | | | | | [employer] | | | | | [...] + | [facility] | [address] | [place], [place] | [phone] | | [facility] | | [address] | | | - LABORATORY | | | | + + + + + | [facility] | [address] | [place], [place] | | | [facility] | | [address] | | | - LABORATORY | | [...] 12 | 7 - 18 mg/dL | [facility] | | | | | | [facility] | | | | | | MEDICAL | | | | | | CENTER - | | | | | | LABORATORY | | + + + + + + | Creatinine | 0.89 | 0.60 - 1.30 | [facility] | | | | | mg/dL | [facility] | | | | | | MEDICAL | | | | | | CENTER - | | | | | | LABORATORY | | + + + + + + | eGFR if not | >60Comment: GLOMERULAR | >=60 | [facility] | | | | FILTRATION | mL/min/1.73m2 | [facility] | | | [place] | RATE,ESTIMATED | | MEDICAL | | | | mL/min/1.30e0Nknk than | | CENTER - | | [...] + | [facility] | [address] | [place] | [phone] | | [facility] | | [address] | | | - LABORATORY | | | | + + + + + | [facility] | [address] | [place] | | | [facility] | | [address] | | | - LABORATORY | | [...] + | [facility] | [address] | [place] | [phone] | | [facility] | | [address] | | | - LABORATORY | | | | + + + + + | [facility] | [address] | [place] | | | [facility] | | [address] | | | - LABORATORY | | [...]
--- OUTSIDE RECORDS SUMMARY | ~2019-11-12 | XMS | Encounter Summary ---
Demographics + + + | Address | [address] | | | [place] [address] | + + + | Home Phone [...] Providers + +------+ + | Care Outside B2B Sales Name | Role | Phone | [...] + + | 09/05/ | Office | [facility] | Geri Angel, | SINUS BRADYCARDIA | | 2012 | Visit | CARDIOLOGY [address] | KAYAKING INSTRUCTOR [address] [place] | (Primary Dx); | | | | [place], | [place], [place] | Symptomatic PVCs; | | | | [place] [address] | [address] | Hypertension; | | | | [phone] | | Hyperlipidemia | +--------+---------+ + + [...] and/or ref er you to electrophysiology in [place]. 3. Return in 3 months, or sooner [...] he did not followup with electrophysiology in [place], so he has remained on diltiaze m [...] Family Status Relation Status Age Mother 62 [place] Father Alive Unknown health Brother Alive Sister [...] by mouth Ken y. 30 tablet 6 [place]-3 Fatty Acids (SALMON OIL-1000 PO) Active CAPS, [...] Sanchez Date: September 05, 2013 : 1960 Solderer Assembler: PARISA Velazquez Device Damage Prevention Coordinator: [employer] Sense (mV) Impedance (?) Capture (V) Capture (ms) A Lead 4-5.6 417 1.5 0.12 RV Lead >31.36 533 2.0 0.09 LV Lead Battery Impedance (?): 452 Battery Voltage (V): 2.79 WV Interval (ms): 162 AR Interval (ms): 245 VA Conduction: Mode Switch Events: 1 % of time: <0.1 -BOX ICER: <0.1% AP-BOX ICER: 0.1% -VS: 22.7% AP-VS: 77.1% BOX ICER: Magnetic Rate: 85 LINDA: 65 LEAH: Current [...] to go back in 3 days to [place] for an attempt of ablation under general [...] He is upgraded to class I of [place] 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 There are no [...] he would like to see electrophysiology in [place] rather than [place] as he paulino s family there, if [...] made to ensure accuracy; however, inadvertent computerized technical administrator errors may be pre sent. Electronically [...] Interrogation | | | | | [place], | (Primary Dx); | | | | | [place] [address] | Presence of | | | | | [phone] | permanent cardiac | | | | [...] W | | | | | | [place], | | | | | | [place] [address] | | | | | | [phone] | | | | | | | [...]
--- OUTSIDE RECORDS SUMMARY | ~2019-11-12 | XMS | Encounter Summary ---
Demographics + + + | Address | [address] | | | [place] [address] | + + + | Home Phone [...] Team Providers + +------+ + | Care Enchilada Maker Name | Role | Phone | [...] + + | 04/12/ | Telephone | [facility] | Daljit Singletary, | Other (issues with | | 2017 | | CARDIOLOGY [address] | MD [address] [place] | low blood pressure | | | | [place], | [place], | and dizziness) | | | | [place] [address] | [place] [address] | | | | | [phone] | [phone] | | | | | | | [...] 2019 | Monitor | | MD [address] [place] | Interrogation | | | | | [place], | (Primary Dx); | | | | | [place] [address] | Presence of | | | | | [phone] | permanent cardiac | | | | [...] | | | | | | [place], | | | | | | [place] [address] | | | | | | [phone] | | | | | | | | +--------+ + + + + documented as of this encounter Visit Diagnoses Not on filedocumented in this encounter"
--- OUTSIDE RECORDS SUMMARY | ~2019-11-12 | XMS | Encounter Summary ---
Demographics + + + | Address | [address] | | | [place] [address] | + + + | Home Phone [...] Providers + +------+ + | Care Dry Plasterer Helper Name | Role | Phone | [...] + | 06/23/ | Office | [facility] | Silvia, | Ascending thoracic | | 2016 | Visit | CARDIOLOGY [address] | PARISA [place] [address] | aortic aneurysm | | | | [place], | [place], | ([facility]) (Primary Dx); | | | | [place] [address] | [place] [address] | Coronary artery | | | | [phone] | [phone] | disease involving | | | | | | osage coronary | | | | | | artery of osage | | | | | | heart [...] in office in 6 months. hgabby, Janeen, ELECTRICAL LOGGER - 06/23/2016 12:45 PM PDT PATIENT NAME: [...] mouth every evening 90 tablet 3 [facility] Natural Products (OSTEO BI-FLEX/5-LOXIN ADVANCED PO) Take [...] 3rd dose, call 911 100 tablet 3 [place]-3 Fatty Acids (SALMON OIL-1000 PO) CAPS, one [...] involving osage coronary artery of osage heart [facility] angina pectoris: A. Normal exercise sestamibi [...] pain. He is in class I-II of [place] Heart Associatio n functional class. There are [...] to go back in 3 days to [place] for an attempt of ablation under general [...] this chart may have been created with [employer] voice recognition software. Occasi onal wrong-word or [...] | 2018 | Monitor | | [address] [place] | Interrogation | | | | | [place], | (Primary Dx); | | | | | [place] [address] | Presence of | | | | | [phone] | permanent cardiac | | | | [...] W | | | | | | [place], | | | | | | [place] [address] | | | | | | [phone] | | | | | | | [...] the | | | | PDT | osage coronary | results section. | | | | | artery of osage | | | | | | heart [...] MD | | | | | | ([id number]) on 06/23/2016 | | | | | [...] osage heart without | | angina pectoris | [...]
--- OUTSIDE RECORDS SUMMARY | ~2019-11-12 | XMS | Encounter Summary ---
Demographics + + + | Address | [address] | | | [place] [address] | + + + | Home Phone [...] Providers + +------+ + | Care Commercial Center Manager Name | Role | Phone [...] | [address] [place] | [place] [address] | | | | | [address] | [phone] | | | | | [phone] | | | +--------+ + + + [...] Dx); | | | | | [place] [address] | Presence of | | | | | [phone] | permanent cardiac | | | | [...] | | | | | [place], | | | | | | [place] [address] | | | | | | [phone] | | | | | | | | +--------+ + + + + documented as of this encounter Visit Diagnoses Not on filedocumented in this encounter"
--- OUTSIDE RECORDS SUMMARY | ~2019-11-12 | XMS | Encounter Summary ---
Demographics + + + | Address | [address] | | | [place] [address] | + + + | Home Phone [...] Providers + +------+ + | Care Senior Qa Engineer Name | Role | Phone | [...] [address] | | | | | [place], | [place], | | | | | [place] [address] | [place] [address] | | | | | [phone] | [phone] | | | | | | | [...] | | | | [place] [address] | Presence of | | | | | [phone] | permanent cardiac | | | | [...] | | | | | | [place] [address] | | | | | | [phone] | | | | | | | | +--------+ + + + + documented as of this encounter Visit Diagnoses Not on filedocumented in this encounter"
--- OUTSIDE RECORDS SUMMARY | ~2019-11-12 | XMS | Encounter Summary ---
Demographics + + + | Address | [address] | | | [place] [address] | + + + | Home Phone [...] Providers + +------+ + | Care Applications Systems Analyst Name | Role | Phone [...] | Telephone | [facility] [place] | [place], | LABS | | 2019 | | CARDIOLOGY [address] | Janeen WASH DRILLER HELPER [address] | | | | | [place], | [place], | | | | | [place] [address] | [place] [address] | | | | | [phone] | [phone] | | | | | | | [...] 2019 | Monitor | | MD [address] [place] | Interrogation | | | | | [place], | (Primary Dx); | | | | | [place] [address] | Presence of | | | | | [phone] | permanent cardiac | | | | [...] W | | | | | | [place], | | | | | | [place] [address] | | | | | | [phone] | | | | | | | [...]
--- OUTSIDE RECORDS SUMMARY | ~2019-11-12 | XMS | Encounter Summary ---
Demographics + + + | Address | [address] | | | [place] [address] | + + + | Home Phone [...] Team Providers + +------+ + | Care Safe Deposit Clerk Name | Role | Phone | [...] CTR CASE | RN | (referral from [facility]) | | | | MANAGEMENT [address] | | | | | | [place], | | | | | | [place] [address] | | | | | | [phone] | | | +--------+ + + + [...] | | | | | [address] [address] [place], | (Primary Dx); | | | | | [place] [address] | Presence of | | | | | [phone] | permanent cardiac | | | | [...] | | | | | | [place] [address] | | | | | | [phone] | | | | | | | | +--------+ + + + + documented as of this encounter Visit Diagnoses Not on filedocumented in this encounter"
--- OUTSIDE RECORDS SUMMARY | ~2019-11-12 | XMS | Encounter Summary ---
Demographics + + + | Address | [address] | | | [place] [address] | + + + | Home Phone [...] Providers + +------+ + | Care Pattern Mechanic Name | Role | Phone | [...] + + | 06/26/ | Office | [facility] | [place], | Diplopia (Primary | | 2012 | Visit | [facility] | [address] | Dx); Symptomatic | | | | [address] | [place], [place] | PVCs; Hypertension | | | | [place], [place] | [address] | | | | | [address] | | | | | | [phone] | | | +--------+---------+ + + + [...] Double vision will affect your ability to spooling operator distance. This means it will be [...] or, difficulty with vision, speech or walking [address] [place] [address]. All rights reserve d. This information is [...] from his pain clinic visit in the [facility] on Wednesday or he developed [...] double vision. He was evaluated by Dr Bayamon and had a normal eye exam, nor [...] tablet by mouth Daily. 30 tablet 6 [place]-3 Fatty Acids (SALMON OIL-1000 PO) CAPS, [...] | | | | | [place], | (Primary Dx); | | | | | [place] [address] | Presence of | | | | | [phone] | permanent cardiac | | | | [...] W | | | | | | [place], | | | | | | [place] [address] | | | | | | [phone] | | | | | | | [...] + | [facility] | [address] | [place] | [phone] | | [facility] | | [address] | | | - LABORATORY | | | | + + + + + | [facility] | [address] | [place] | | | [facility] | | [address] | | | - LABORATORY | | [...] + | [facility] | [address] | [place] | [phone] | | [facility] | | [address] | | | - LABORATORY | | | | + + + + + | [facility] | [address] | [place] | | | [facility] | | [address] | | | - LABORATORY | | [...] | [facility] | | | | [place] Access | | MEDICAL | | | [...] [address] | [place] | [phone] | | [facility] | | [address] | | | - LABORATORY | | | | + + + + + | [facility] | [address] | [place], [place] | | | [facility] | | [address] | | | - LABORATORY | | | | + + + + + documented in this encounter Visit Diagnoses + + | Diagnosis | + + | Diplopia - Primary | + + | Symptomatic PVCs Other premature beats | + + | Hypertension Unspecified essential hypertension | + + documented in this encounter
--- OUTSIDE RECORDS SUMMARY | ~2019-11-12 | XMS | Encounter Summary ---
Demographics + + + | Address | [address] | | | [place] [address] | + + + | Home Phone [...] Providers + +------+ + | Care Associate Editor Name | Role | Phone | [...] | disease involving | | | | [place], | [place], | ruby coronary | | | | [place] [address] | [place] [address] | artery of ruby | | | | [phone] | [phone] | heart without angina | | | [...] Dx); | | | | | [place] [address] | Presence of | | | | | [phone] | permanent cardiac | | | | [...] W | | | | | | [place], | | | | | | [place] [address] | | | | | | [phone] | | | | | | | [...] MD | | | | | | ([id number]) on 06/23/2016 | | | | | [...] + + | 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
--- OUTSIDE RECORDS SUMMARY | ~2019-11-12 | XMS | Encounter Summary ---
Demographics + + + | Address | [address] | | | [place] [address] | + + + | Home Phone [...] Team Providers + +------+ + | Care Photoengraver Apprentice Name | Role | Phone | [...] 2012 | | CARDIOLOGY [address] | OPERATOR HELPER [address] [place] | faxed) | | | | [place], | [place] [facility], [place] | | | | | [place] [address] | [address] | | | | | [phone] | | | +--------+ + + + [...] | 2018 | Monitor | | [address] [place] | Interrogation | | | | | [place], | (Primary Dx); | | | | | [place] [address] | Presence of | | | | | [phone] | permanent cardiac | | | | [...] W | | | | | | [place], | | | | | | [place] [address] | | | | | | [phone] | | | | | | | | +--------+ + + + + documented as of this encounter Visit Diagnoses Not on filedocumented in this encounter"
--- OUTSIDE RECORDS SUMMARY | ~2019-11-12 | XMS | Encounter Summary ---
Demographics + + + | Address | [address] | | | [place] [address] | + + + | Home Phone [...] Team Providers + +------+ + | Care Commissioning Specialist Name | Role | Phone | [...] | MED CTR EXTERNAL | MD [address] | | | | | IMAGING | Jay [place] | | | | | [phone] | [place] [address] | | +--------+ + + + + [...] Dx); | | | | | [place] [address] | Presence of | | | | | [phone] | permanent cardiac | | | | [...] W | | | | | | [place], | | | | | | [place] [address] | | | | | | [phone] | | | | | | | [...] for comparison only - no result from [place]. | | + + + + +---------+ + + | Performing | Address | City/State/Zipcode | Phone Number | | Organization | | | | + +---------+ + + | [facility] | | | | + +---------+ + + documented in this encounter Visit Diagnoses Not on filedocumented in this encounter"
--- OUTSIDE RECORDS SUMMARY | ~2019-11-12 | XMS | Encounter Summary ---
Demographics + + + | Address | [address] | | | [place] [address] | + + + | Home Phone [...] Providers + +------+ + | Care Network Relay Tester Name | Role | Phone | [...] Refill | | 2013 | | MEDICINE [place] | DO [address] | | | | | [address] | [place] | | | | | [place] | [address] | | | | | [address] | | | | | | [phone] | | | +--------+--------+ + + + [...] | 2018 | Monitor | | [address] [place] | Interrogation | | | | | [place], | (Primary Dx); | | | | | [place] [address] | Presence of | | | | | [phone] | permanent cardiac | | | | [...] | | | | | | [place] [address] | | | | | | [phone] | | | | | | | | +--------+ + + + + documented as of this encounter Visit Diagnoses Not on filedocumented in this encounter"
--- OUTSIDE RECORDS SUMMARY | ~2019-11-12 | XMS | Encounter Summary ---
Demographics + + + | Address | [address] [place] [address] | | | [place] [address] | + + + | Home Phone [...] [place] | | | | | [address] | | + + + + + Care Team Providers + +------+ + | Care Bridge Tender Name | Role | Phone | [...] | | | | IL[facility] [address] | [place], [place] | | | | | Mailcode: [place] | [address] | | | | | for Health and | [phone] | | | | | [facility] [address] | | | | | | [place], [place] | | | | | | [address] | | | | | | [phone] | | | +--------+ + + + [...]
--- OUTSIDE RECORDS SUMMARY | ~2019-11-12 | XMS | Encounter Summary ---
Demographics + + + | Address | [address] | | | [place] [address] | + + + | Home Phone [...] Team Providers + +------+ + | Care Chlorine Plant Operator Name | Role | Phone | + +------+ + PCP | Unavailable | + +------+ + Encounter Details +--------+ + + + + | Date | Type | Department | Care Team | Description | +--------+ + + + + | 04/28/ | [facility] | [facility] | Jonathan, | | | 2008 | Encounter | MED CTR EMERGENCY | Martell Cr MD [address] | | | | | CENTER [address] | [place] | | | | | [place] | [place] [address] | | | | | [address] | [phone] | | | | | [phone] | | | +--------+ + + + [...] Dx); | | | | | [place] [address] | Presence of | | | | | [phone] | permanent cardiac | | | | [...] | | | | | | [place] [address] | | | | | | [phone] | | | | | | | | +--------+ + + + + documented as of this encounter Visit Diagnoses Not on filedocumented in this encounter"
--- OUTSIDE RECORDS SUMMARY | ~2019-11-12 | XMS | Encounter Summary ---
Demographics + + + | Address | [address] | | | [place] [address] | + + + | Home Phone [...] Providers + +------+ + | Care Form Setter Helper Name | Role | Phone | [...] | | CARDIOLOGY [address] | Janeen, FLOOR RENOVATOR [address] | reading) | | | | [place], | [place], | | | | | [place] [address] | [place] [address] | | | | | [phone] | [phone] | | | | | | | [...] Dx); | | | | | [place] [address] | Presence of | | | | | [phone] | permanent cardiac | | | | [...] W | | | | | | [place], | | | | | | [place] [address] | | | | | | [phone] | | | | | | | | +--------+ + + + + documented as of this encounter Visit Diagnoses Not on filedocumented in this encounter"
--- OUTSIDE RECORDS SUMMARY | ~2019-11-12 | XMS | Encounter Summary ---
Demographics + + + | Address | [address] | | | [place] [address] | + + + | Home Phone [...] Providers + +------+ + | Care Activity Therapist Name | Role | Phone | + +------+ + | Kirk French MD | PCP | | + +------+ + Encounter Details +--------+---------+ + + + | Date | Type | Department | Care Team | Description | +--------+---------+ + + + | 09/26/ | Office | [facility] | Kirk French | Weight loss (Primary | | 2018 | Visit | [facility] | MD Brea [address] | Dx); Bipolar | | | | [facility]IMARY [facility] [address] | affective disorder, | | | | [address] | [place] [address] | remission status | | | | [place], [place] | [phone] | unspecified (HCC); | | | | [address] | | Mixed anxiety | | | | [phone] | | depressive disorder; | | | [...] CV LHC; Surgeon: Daljit Singletary MD; Location: [facility] CV LAB CARDIAC CATHERIZATION N/A 01/25/2019 Procedure: CV Cor Angio; Surgeon: Daljit Singletary MD; Location: [facility] CV LAB COLONOSCOPY N/A 12/24/2017 Procedure: COLONOSCOPY; Surgeon: Emmanuel Daniel MD; Location: [facility] MEDICAL PROCEDURE UNIT COLONOSCOPY N/A 01/05/2019 Procedure: COLONOSCOPY; Surgeon: Emmanuel Daniel MD; Location: [facility] MEDICAL PROCEDURE UNIT EGD 12/24/2017 HARDWARE [...] Procedure: EGD; Surgeon: Emmanuel Daniel MD; Location: [facility] MEDICAL PROCEDURE UNIT UPPER GASTROINTESTINAL ENDOSCOPY N/A 01/05/2019 Procedure: EGD; Surgeon: Emmanuel Daniel MD; Location: [facility] MEDICAL PROCEDURE UNIT URETEROSCOPY Left 04/13/2019 Procedure: Cystoscopy, Left ureteroscopy with laser lithotripsy, Left ureteral stent place ment; Surgeon: Matthew Uriarte MD; Location: [facility] MAIN OR VASECTOMY Social History Socioeconomic [...] NEEDED FOR CHEST PAIN 250 tablet 0 [place]-3 Fatty Acids (SALMON OIL-1000 PO) CAPS, one capsule by mouth daily twice daily ondansetron (ZOFRAN ODT) 4 mg disintegrating tablet Take 4 mg by mouth every 8 hours as needed for Nausea. ONE TOUCH [place]ICA [place] [facility] Check glucose as needed for hypoglycemia 100 [...] PLT 169 06/02/2019 No results found for: YPEDLFFP40 No results found for: FOLATE No results [...] Co multiple ER visits Going again to [facility] tomorrow Already followed by GI Co in [...] dollars a month. We will defer to [facility], perhaps to have some sort of a [...] Interrogation | | | | | [place], | (Primary Dx); | | | | | [place] [address] | Presence of | | | | | [phone] | permanent cardiac | | | | [...] W | | | | | | [place], | | | | | | [place] [address] | | | | | | [phone] | | | | | | | [...]
--- OUTSIDE RECORDS SUMMARY | ~2019-11-12 | XMS | Encounter Summary ---
Demographics + + + | Address | [address] | | | [place] [address] | + + + | Home Phone [...] 2019 | | GASTROENTEROLOGY | [address] [place] | | | | | [address] [place] | [address] [place], [place] | | | | | [address] [place], [place] | [address] | | | | | [address] | | | | | | [phone] | | | +--------+ + + + [...] Dx); | | | | | [place] [address] | Presence of | | | | | [phone] | permanent cardiac | | | | [...] | | | | | | [place] [address] | | | | | | [phone] | | | | | | | | +--------+ + + + + documented as of this encounter Visit Diagnoses Not on filedocumented in this encounter"
--- OUTSIDE RECORDS SUMMARY | ~2019-11-12 | XMS | Encounter Summary ---
Demographics + + + | Address | [address] | | | [place] [address] | + + + | Home Phone [...] + | Author | [facility] | | | and [...] Team Providers + +------+ + | Care Drill Press Tender Name | Role | Phone | + +------+ + PCP | Unavailable | + +------+ + Encounter Details +--------+ + + + + | Date | Type | Department | Care Team | Description | +--------+ + + + + | 01/17/ | [facility] | [facility] | Jonas Ramos, | | | 2009 | Encounter | MED CTR EMERGENCY | MD [address] | | | | | CENTER [address] | [facility] | | | | | [place] | [place] [address] | | | | | [address] | [phone] | | | | | [phone] | | | +--------+ + + + [...] Dx); | | | | | [place] [address] | Presence of | | | | | [phone] | permanent cardiac | | | | [...] W | | | | | | [address] [place], | | | | | | [place] [address] | | | | | | [phone] | | | | | | | | +--------+ + + + + documented as of this encounter Visit Diagnoses Not on filedocumented in this encounter"
--- OUTSIDE RECORDS SUMMARY | ~2019-11-12 | XMS | Encounter Summary ---
Demographics + + + | Address | [address] | | | [place] [address] | + + + | Home Phone [...] + + + + | 11/14/ | [facility] | [facility] | William Hirsch | | | 1999 | Encounter | MED CTR EMERGENCY | MD Cristobal [address] | | | | | CENTER [address] | [address] | | | | | [place] | [place] [address] | | | | | [address] | [phone] | | | | | [phone] | | | +--------+ + + + [...] Dx); | | | | | [place] [address] | Presence of | | | | | [phone] | permanent cardiac | | | | [...] W | | | | | | [place], | | | | | | [place] [address] | | | | | | [phone] | | | | | | | | +--------+ + + + + documented as of this encounter Visit Diagnoses Not on filedocumented in this encounter"
--- OUTSIDE RECORDS SUMMARY | ~2019-11-12 | XMS | Encounter Summary ---
Demographics + + + | Address | [address] | | | [place] [address] | + + + | Home Phone [...] Providers + +------+ + | Care Stone Sandblaster Name | Role | Phone | + [...] Refill | | 2013 | | [facility] [place] | DO [address] | | | | | [address] | [place] | | | | | [place] | [address] | | | | | [address] | | | | | | [phone] | | | +--------+--------+ + + + [...] 2018 | Monitor | | [address] | Interrogation | | | | | [place], | (Primary Dx); | | | | | [place] [address] | Presence of | | | | | [phone] | permanent cardiac | | | | [...] | | | | | | [place] [address] | | | | | | [phone] | | | | | | | | +--------+ + + + + documented as of this encounter Visit Diagnoses Not on filedocumented in this encounter"
--- OUTSIDE RECORDS SUMMARY | ~2019-11-12 | XMS | Encounter Summary ---
Demographics + + + | Address | [address] | | | [place] [address] | + + + | Home Phone [...] Providers + +------+ + | Care Ground Crewman Name | Role | Phone | [...] Eva [place] | | | | | [place], [place] | [address] | | | | | [address] | [place] [address] | | | | | [phone] | [phone] | | | | | | | [...] | 2018 | Monitor | | [address] [place] | Interrogation | | | | | [place], | (Primary Dx); | | | | | [place] [address] | Presence of | | | | | [phone] | permanent cardiac | | | | [...] | | | | | [place], | | | | | | [place] [address] | | | | | | [phone] | | | | | | | [...] [place] | | | | | | Blvd;[place] [address] | | | | + + + [...] | | | | | Blvd;[place] [address] | | | | + + + [...] | | at [facility];[address] [facility] | | | | | | [facility];[place] | | | | | | [address] | | | | + + + [...]
--- OUTSIDE RECORDS SUMMARY | ~2019-11-12 | XMS | Encounter Summary ---
Demographics + + + | Address | [address] | | | [place] [address] | + + + | Home Phone [...] Team Providers + +------+ + | Care Journeyman Pipe Fitter Name | Role | Phone | + +------+ + | Kirk French MD | PCP | | + +------+ + Encounter Details +--------+ + + + + | Date | Type | Department | Care Team | Description | +--------+ + + + + | 08/10/ | Orders Only | [facility] | [place], | Mixed hyperlipidemia | | 2016 | | MED CTR LABORATORY | [place] [address] | (Primary Dx) | | | | [address] [address] [place] | [place], | | | | | [place] | [place] [address] | | | | | [address] | [phone] | | | | | [phone] | | | +--------+ + + + [...] | 2018 | Monitor | | [address] [place] | Interrogation | | | | | [place], | (Primary Dx); | | | | | [place] [address] | Presence of | | | | | [phone] | permanent cardiac | | | | [...] W | | | | | | [place], | | | | | | [place] [address] | | | | | | [phone] | | | | | | | [...]
--- OUTSIDE RECORDS SUMMARY | ~2019-11-12 | XMS | Encounter Summary ---
Demographics + + + | Address | [address] | | | [place] [address] | + + + | Home Phone [...] Providers + +------+ + | Care Residential Team Leader Name | Role | Phone | + +------+ + PCP | Unavailable | + +------+ + Encounter Details +--------+ + + + + | Date | Type | Department | Care Team | Description | +--------+ + + + + | 10/29/ | Hospital | [facility] | Pia Akhtar | | | 2003 | Encounter | CONVERSION DEP [address] | MD [address] | | | | | [address] | [address] | | | | | [place] | [place] [address] | | | | | [address] | [phone] | | | | | [phone] | | | +--------+ + + + [...] Dx); | | | | | [place] [address] | Presence of | | | | | [phone] | permanent cardiac | | | | [...] | 2020 | Visit | | [place]ISA [address] | | | | | | [place], | | | | | | [place] [address] | | | | | | [phone] | | | | | | | | +--------+ + + + + documented as of this encounter Visit Diagnoses Not on filedocumented in this encounter"
--- OUTSIDE RECORDS SUMMARY | ~2019-11-12 | XMS | Encounter Summary ---
Demographics + + + | Address | [address] | | | [place] [address] | + + + | Home Phone [...] Team Providers + +------+ + | Care Iron Worker Name | Role | Phone [...] | (Fax) | | | | | [address] | | | | | | [phone] | | | +--------+ + + + [...] 2019 | Monitor | | [address] [place] | Interrogation | | | | | [place], | (Primary Dx); | | | | | [place] [address] | Presence of | | | | | [phone] | permanent cardiac | | | | [...] | | | | | | [place] [address] | | | | | | [phone] | | | | | | | | +--------+ + + + + documented as of this encounter Visit Diagnoses Not on filedocumented in this encounter"
--- OUTSIDE RECORDS SUMMARY | ~2019-11-12 | XMS | Encounter Summary ---
Demographics + + + | Address | [address] | | | [place] [address] | + + + | Home Phone [...] Team Providers + +------+ + | Care Lpta Name | Role | Phone | + [...] 2014 | | CARDIOLOGY [address] | CUSTODIAL MANAGER [address] | | | | | [place], | [place], [place] | | | | | [place] [address] | [address] | | | | | [phone] | | | +--------+ + + + [...] Dx); | | | | | [place] [address] | Presence of | | | | | [phone] | permanent cardiac | | | | [...] | | | | | | [place] [address] | | | | | | [phone] | | | | | | | | +--------+ + + + + documented as of this encounter Visit Diagnoses Not on filedocumented in this encounter"
--- OUTSIDE RECORDS SUMMARY | ~2019-11-12 | XMS | Encounter Summary ---
Demographics + + + | Address | [address] | | | [place] [address] | + + + | Home Phone [...] Providers + +------+ + | Care Residential Concierge Name | Role | Phone | + +------+ + | Darion Holden DO | PCP | | + +------+ + Encounter Details +--------+ + + + + | Date | Type | Department | Care Team | Description | +--------+ + + + + | 08/05/ | Hospital | [facility] | Emmanuel Daniel MD | | | 2009 | Encounter | MED CTR XRAY [address] | [address] | | | | | [place] | [address] [place], [place] | | | | | [place] [address] | [address] | | | | | [phone] | | | +--------+ + + + [...] Dx); | | | | | [place] [address] | Presence of | | | | | [phone] | permanent cardiac | | | | [...] W | | | | | | [place], | | | | | | [place] [address] | | | | | | [phone] | | | | | | | | +--------+ + + + + documented as of this encounter Visit Diagnoses Not on filedocumented in this encounter"
--- OUTSIDE RECORDS SUMMARY | ~2019-11-12 | XMS | Encounter Summary ---
Demographics + + + | Address | [address] | | | [place] [address] | + + + | Home Phone [...] Providers + +------+ + | Care Student Financial Aid Manager Name | Role | Phone | [...] Eva ROUSE | | | | | [place], [place] | [address] | | | | | [address] | [place] [address] | | | | | [phone] | [phone] | | | | | | | [...] | 2018 | Monitor | | [address] [place] | Interrogation | | | | | [place], | (Primary Dx); | | | | | [place] [address] | Presence of | | | | | [phone] | permanent cardiac | | | | [...] W | | | | | | [place], | | | | | | [place] [address] | | | | | | [phone] | | | | | | | [...]
--- OUTSIDE RECORDS SUMMARY | ~2019-11-12 | XMS | Encounter Summary ---
Demographics + + + | Address | [address] | | | [place] [address] | + + + | Home Phone [...] Providers + +------+ + | Care Corporate Administrator Name | Role | Phone | [...] | unspecified | MD Jacek | [address] [place] | | | | | type | [address] | [place], | | | | | Unintentiona | [place] | [place] [address] | | | | | l weight | [place], [place] | Phone: | | | | | loss | [address] | [phone] | | | | | Procedures | Phone: | Fax: | | | | | [place] [facility] | [phone] | [phone] | | | | | INTRALUMINAL | Fax: | | | | | | | [phone] | | | | | | ESOPHAGUS-IL [...] (Primary Dx); | | | | [address] [place], [place] | [place] [address] | Unintentional weight | | | | [address] | [phone] | loss | | | [phone] | | | +--------+ + + + [...] Interrogation | | | | | [place], | (Primary Dx); | | | | | [place] [address] | Presence of | | | | | [phone] | permanent cardiac | | | | [...] | | | | | | [place], | | | | | | [place] [address] | | | | | | [phone] | | | | | | | [...]
--- OUTSIDE RECORDS SUMMARY | ~2019-11-12 | XMS | Encounter Summary ---
Demographics + + + | Address | [address] | | | [place] [address] | + + + | Home Phone [...] Providers + +------+ + | Care Well Head Pumper Name | Role | Phone | + [...] | (Fax) | | | | | [address] | | | | | | [phone] | | | +--------+ + + + [...] 2019 | Monitor | | [address] [place] | Interrogation | | | | | [place], | (Primary Dx); | | | | | [place] [address] | Presence of | | | | | [phone] | permanent cardiac | | | | [...] | | | | | | [place] [address] | | | | | | [phone] | | | | | | | | +--------+ + + + + documented as of this encounter Visit Diagnoses Not on filedocumented in this encounter"
--- OUTSIDE RECORDS SUMMARY | ~2019-11-12 | XMS | Encounter Summary ---
Demographics + + + | Address | [address] | | | [place] [address] | + + + | Home Phone [...] Providers + +------+ + | Care Screen Examiner Name | Role | Phone | [...] + | 01/03/ | Office | [facility] | [place], | CAD (coronary artery | | 2012 | Visit | CARDIOLOGY [address] | Janeen, FOREIGN CLERK [address] | disease) (Primary | | | | [place], | [place], | Dx); Bradycardia; | | | | [place] [address] | [place] [address] | HTN (hypertension); | | | | [phone] | [phone] | Lightheadedness | | | | | [...] tablet Take 1,000 mg by mouth Daily. [place]-3 Fatty Acids (SALMON OIL-1000 PO) CAPS, one [...] himself t o the emergency department at [facility] in [place], [place]. EKG showed normal s inus rhythm [...] Refer patient to an electrophysiology specialist in [place] for further evaluation for P VC's ablation. I have given verbal instructions and written material for patient to read mo re about the procedure. 2. Check blood pressure and pulse twice daily for two weeks and return the log to our offic e. 3. Followup appointment after patient's appointment with cannon fire direction specialist/ablation. IJaneen ARNP, saw this patient under the direct supervision of Daljit Singletary MD Portions of this report were transcribed using voice recognition software. Every effort wa s made to ensure accuracy; however, inadvertent computerized renewable energy technician errors may be pre sent. documented [...] Dx); | | | | | [place] [address] | Presence of | | | | | [phone] | permanent cardiac | | | | [...] | | | | | | [place], | | | | | | [place] [address] | | | | | | [phone] | | | | | | | | +--------+ + + + + documented as of this encounter Visit Diagnoses + + | Diagnosis | + + | CAD (coronary artery disease) - Primary Coronary atherosclerosis of unspecified type | | of vessel, nondalton or graft | + + | Bradycardia Other specified cardiac dysrhythmias | + + | HTN (hypertension) Unspecified essential hypertension | + + | Lightheadedness Dizziness and giddiness | + + documented in this encounter
--- OUTSIDE RECORDS SUMMARY | ~2019-11-12 | XMS | Encounter Summary ---
Demographics + + + | Address | [address] | | | [place] [address] | + + + | Home Phone [...] Providers + +------+ + | Care Plaster Molder Name | Role | Phone | [...] + | 09/01/ | Telephone | [facility] | [place], | Appointment | | 2016 | | CARDIOLOGY [address] | [place] [address] | (Reschedule) | | | | [place], | [place], | | | | | [place] [address] | [place] [address] | | | | | [phone] | [phone] | | | | | | | [...] Dx); | | | | | [place] [address] | Presence of | | | | | [phone] | permanent cardiac | | | | [...] | | | | | | [place] [address] | | | | | | [phone] | | | | | | | | +--------+ + + + + documented as of this encounter Visit Diagnoses Not on filedocumented in this encounter"
--- OUTSIDE RECORDS SUMMARY | ~2019-11-12 | XMS | Encounter Summary ---
Demographics + + + | Address | [address] | | | [place] [address] | + + + | Home Phone [...] Team Providers + +------+ + | Care Collection Technician Name | Role | Phone | + +------+ + | Kirk French MD | PCP | | + +------+ + Encounter Details +--------+ + + + + | Date | Type | Department | Care Team | Description | +--------+ + + + + | 11/16/ | Hospital | [facility] | Kirk French | Aneurysm (HCC) | | 2017 | Encounter | MED CTR ULTRASOUND | D, MD [address] | | | | | [address] [place] | [address] | | | | | [place], [place] | [place] [address] | | | | | [address] | [phone] | | | | | [phone] | | | | | | | [...] + + +---------+ + + | [place]-3 Fatty | CAPS, one capsule by | [...] | Monitor | | MD [address] [place] | Interrogation | | | | | [place], | (Primary Dx); | | | | | [place] [address] | Presence of | | | | | [phone] | permanent cardiac | | | | [...] | | | | | | [place], | | | | | | [place] [address] | | | | | | [phone] | | | | | | | [...]
--- OUTSIDE RECORDS SUMMARY | ~2019-11-12 | XMS | Encounter Summary ---
Demographics + + + | Address | [address] [place] [address] | | | [place] [address] | + + + | Home Phone [...] [place] | | | | | [address] | | + + + + + Care Team Providers + +------+ + | Care Retention Representative Name | Role | Phone | [...] | | Center at [facility] [address] | [address] | | | | | [address] | [place], [place] | | | | | Mailcode: [place] | [address] | | | | | [facility] and | [phone] | | | | | [place] [address] | | | | | | [place], [place] | | | | | | [address] | | | | | | [phone] | | | +--------+ + + + [...]
--- OUTSIDE RECORDS SUMMARY | ~2019-11-12 | XMS | Encounter Summary ---
Demographics + + + | Address | [address] | | | [place] [address] | + + + | Home Phone [...] Team Providers + +------+ + | Care Cigarette Making Examiner Name | Role | Phone | [...] loss | [address] | [address] [place], | | | | | Anxiety | [address] | [address] | | | | | disorder, | [address] | [place], | | | | | unspecified | [place], [place] | [place] [address] | | | | | Chronic | [address] | Phone: | | | | | pain | Phone: | [phone] | | | | | syndrome | [phone] | Fax: | | | | | Procedures | Fax: | [phone] | | | | | office visit | [phone] | | +--------+--------+ + + + + Encounter Details +--------+---------+ + + + | Date | Type | Department | Care Team | Description | +--------+---------+ + + + | 12/26/ | Office | [facility] | Emmanuel Daniel MD | Functional diarrhea | | 2019 | Visit | GASTROENTEROLOGY | [address] [place], [place] | (Primary Dx); | | | | [address] [place] | [address] [place], [place] | Gastrointestinal | | | | [address] [place], [place] | [address] | hemorrhage | | | | [address] | | associated with | | | | [phone] | | anorectal source; | | | [...] Dx); | | | | | [place] [address] | Presence of | | | | | [phone] | permanent cardiac | | | | [...] | | | | | | [place] [address] | | | | | | [phone] | | | | | | | [...]
--- OUTSIDE RECORDS SUMMARY | ~2019-11-12 | XMS | Encounter Summary ---
Demographics + + + | Address | [address] | | | [place] [address] | + + + | Home Phone [...] Providers + +------+ + | Care Paper Plate Machine Tender Name | Role | Phone [...] | 07/30/ | Telephone | [facility] | Michael Amanda, | Results | | 2013 | | MEDICINE [place] | DO [address] | | | | | [address] | [place] | | | | | [place] | [address] | | | | | [address] | | | | | | [phone] | | | +--------+ + + + [...] 2018 | Monitor | | [address] | Interrogation | | | | | [place], | (Primary Dx); | | | | | [place] [address] | Presence of | | | | | [phone] | permanent cardiac | | | | [...] W | | | | | | [place], | | | | | | [place] [address] | | | | | | [phone] | | | | | | | | +--------+ + + + + documented as of this encounter Visit Diagnoses Not on filedocumented in this encounter"
--- OUTSIDE RECORDS SUMMARY | ~2019-11-12 | XMS | Encounter Summary ---
Demographics + + + | Address | [address] | | | [place] [address] | + + + | Home Phone [...] Providers + +------+ + | Care Technical Asst Name | Role | Phone | [...] Provider Unknown | | | | | [place], [place] | [phone] | | | | | [address] | | | | | | [phone] | | | +--------+ + + + [...] + + + +---------+ + + | [place]-3 Fatty | CAPS, one capsule by | [...] Dx); | | | | | [place] [address] | Presence of | | | | | [phone] | permanent cardiac | | | | [...] W | | | | | | [place], | | | | | | [place] [address] | | | | | | [phone] | | | | | | | [...]
--- OUTSIDE RECORDS SUMMARY | ~2019-11-12 | XMS | Encounter Summary ---
Demographics + + + | Address | [address] | | | [place] [address] | + + + | Home Phone [...] Providers + +------+ + | Care Spreader Name | Role | Phone | [...] | | | | CENTER [address] | [place], [place] | insufficiency | | | | [place], [place] | [address] | | | | | [address] | | | | | | [phone] | | | +--------+ + + + [...] sent through Care Everywhere.PERIPHERAL KENYETTA A, BILATERAL ([place])documented in this encounter Medications at Time of [...] | | | | | | | #[id number], exp 07/2016 | | | | | [...] Interrogation | | | | | [place], | (Primary Dx); | | | | | [place] [address] | Presence of | | | | | [phone] | permanent cardiac | | | | [...] W | | | | | | [place], | | | | | | [place] [address] | | | | | | [phone] | | | | | | | | +--------+ + + + + documented as of this encounter Visit Diagnoses + + | Diagnosis | + + | Peripheral edema - Primary Edema | + + | Venous insufficiency Unspecified venous (peripheral) insufficiency | + + documented in this encounter
--- OUTSIDE RECORDS SUMMARY | ~2019-11-12 | XMS | Encounter Summary ---
Demographics + + + | Address | [address] | | | [place] [address] | + + + | Home Phone [...] Team Providers + +------+ + | Care Papier Mache Molder Name | Role | Phone | [...] | 07/07/ | Telephone | [facility] | Daljit Singletary, | Appointment | | 2012 | | CARDIOLOGY [address] | MD [address] [place] | | | | | [place], | [place], | | | | | [place] [address] | [place] [address] | | | | | [phone] | [phone] | | | | | | | [...] 2019 | Monitor | | MD [address] [place] | Interrogation | | | | | [place], | (Primary Dx); | | | | | [place] [address] | Presence of | | | | | [phone] | permanent cardiac | | | | [...] W | | | | | | [place], | | | | | | [place] [address] | | | | | | [phone] | | | | | | | | +--------+ + + + + documented as of this encounter Visit Diagnoses Not on filedocumented in this encounter"
--- OUTSIDE RECORDS SUMMARY | ~2019-11-12 | XMS | Encounter Summary ---
Demographics + + + | Address | [address] | | | [place] [address] | + + + | Home Phone [...] + +------+ + | Care Footwear Sales Leader Name | Role | Phone | + +------+ + | Kirk French MD | PCP | | + +------+ + Encounter Details +--------+ + + + + | Date | Type | Department | Care Team | Description | +--------+ + + + + | 01/25/ | Hospital | [facility] | Daljit Singletary, | Stable angina | | 2019 | Encounter | MED CTR CV INTRA OP | MD [address] | pectoris (HCC) | | | | [address] | [address] [place], | | | | | [place] | [place] [address] | | | | | [address] | [phone] | | | | | [phone] | | | +--------+ + + + [...] as a collagen plugis used on the lubbock triny site to close the site, you [...] by your healthcare provider Date Last Reviewed: 09/22/201619999546-8857 [employer]. [address] [place] [address]. All righ ts reserved. This information is [...] + + + +---------+ + + | [place]-3 Fatty | CAPS, one capsule by | [...] Dx); | | | | | [place] [address] | Presence of | | | | | [phone] | permanent cardiac | | | | [...] W | | | | | | [place], | | | | | | [place] [address] | | | | | | [phone] | | | | | | | [...] (1960) MEDICAL RECORD NUMBER: | | | [id number] OF PROCEDURE: 01/25/2019 LICENSED JOURNEYMAN ELECTRICIAN: Daljit | | | MD Gemini PROCEDURES [...] Sanchez, (1960) | | OF PROCEDURE: 01/25/2019PRIMARY TERRA COTTA ROOFER: Daljit Singletary MD PROCEDURES | | PERFORMED:Coronary [...] Aggressive medical management. | | at 9:33[facility] PROVIDER:Kirk French MDFor additional detail as [...]
--- OUTSIDE RECORDS SUMMARY | ~2019-11-12 | XMS | Encounter Summary ---
Demographics + + + | Address | [address] | | | [place] [address] | + + + | Home Phone [...] | | CARDIOLOGY [address] | Janeen ORTHOPEDIC PHYSICAL THERAPIST [address] | | | | | [place], | [place], | | | | | [place] [address] | [place] [address] | | | | | [phone] | [phone] | | | | | | | [...] Interrogation | | | | | [place], | (Primary Dx); | | | | | [place] [address] | Presence of | | | | | [phone] | permanent cardiac | | | | [...] | | | | | | [place] [address] | | | | | | [phone] | | | | | | | | +--------+ + + + + documented as of this encounter Visit Diagnoses Not on filedocumented in this encounter"
--- OUTSIDE RECORDS SUMMARY | ~2019-11-12 | XMS | Encounter Summary ---
Demographics + + + | Address | [address] | | | [place] [address] | + + + | Home Phone [...] Providers + +------+ + | Care Security Inspector Name | Role | Phone | + +------+ + PCP | Unavailable | + +------+ + Encounter Details +--------+ + + + + | Date | Type | Department | Care Team | Description | +--------+ + + + + | 09/08/ | [facility] | [facility] | Naresh Mckeon | | | 1998 | Encounter | MED CTR SLEEP | MD Chaya [address] | | | | | CENTER [address] | [place] | | | | | [place] | [place] [address] | | | | | [address] | [phone] | | | | | [phone] | | | +--------+ + + + [...] | | | | | [place], | (Primary Dx); | | | | | [place] [address] | Presence of | | | | | [phone] | permanent cardiac | | | | [...] W | | | | | | [place], | | | | | | [place] [address] | | | | | | [phone] | | | | | | | | +--------+ + + + + documented as of this encounter Visit Diagnoses Not on filedocumented in this encounter"
--- OUTSIDE RECORDS SUMMARY | ~2019-11-12 | XMS | Encounter Summary ---
Demographics + + + | Address | [address] | | | [place] [address] | + + + | Home Phone [...] Team Providers + +------+ + | Care Tabber Name | Role | Phone | + +------+ + PCP | Unavailable | + +------+ + Encounter Details +--------+ + + + + | Date | Type | Department | Care Team | Description | +--------+ + + + + | 12/16/ | [facility] | [facility] | Naresh Mckeon | | | 2010 | Encounter | MED CTR SLEEP | MD Chaya [address] | | | | | CENTER [address] [place] | [place] | | | | | [place] | [place] [address] | | | | | [address] | [phone] | | | | | [phone] | | | +--------+ + + + [...] Interrogation | | | | | [place], | (Primary Dx); | | | | | [place] [address] | Presence of | | | | | [phone] | permanent cardiac | | | | [...] | | | | | | [place] [address] | | | | | | [phone] | | | | | | | | +--------+ + + + + documented as of this encounter Visit Diagnoses Not on filedocumented in this encounter"
--- OUTSIDE RECORDS SUMMARY | ~2019-11-12 | XMS | Encounter Summary ---
Demographics + + + | Address | [address] [address] | | | [place] [address] | + + + | Home Phone [...] [place] | | | | | [address] | | + + + + + Care Team Providers + +------+ + | Care Dinkey Operator Slag Name | Role | Phone | + [...] | | | | | Unintentiona | [place], [place] | | | | | | l weight | [address] | | | | | | loss | Phone: | | | | | | Procedures | [phone] | | | | | | CONSULT TO | Fax: | | | | | | NON - IVETTE | [phone] | | | | | | PROVIDER [...] at [facility] [address] | MD [address] | normal, recommend | | | | [address] | [place], [place] | hyoscyamine) | | | | Mailcode: [place] | [address] | | | | | for Health and | [phone] | | | | | [facility], [facility] [address] | | | | | | [place], [place] | | | | | | [address] | | | | | | [phone] | | | +--------+ + + + [...]
--- OUTSIDE RECORDS SUMMARY | ~2019-11-12 | XMS | Encounter Summary ---
Demographics + + + | Address | [address] | | | [place] [address] | + + + | Home Phone [...] Providers + +------+ + | Care Cigarette Roller Name | Role | Phone | + +------+ + PCP | Unavailable | + +------+ + Encounter Details +--------+ + + + + | Date | Type | Department | Care Team | Description | +--------+ + + + + | 05/13/ | Hospital | [facility] | | | | 2007 | Encounter | MED CTR EMERGENCY | | | | | | [place] [address] | | | | | | [place] | | | | | | [address] | | | | | | [phone] | | | +--------+ + + + [...] Dx); | | | | | [place] [address] | Presence of | | | | | [phone] | permanent cardiac | | | | [...] W | | | | | | [place], | | | | | | [place] [address] | | | | | | [phone] | | | | | | | | +--------+ + + + + documented as of this encounter Visit Diagnoses Not on filedocumented in this encounter"
--- OUTSIDE RECORDS SUMMARY | ~2019-11-12 | XMS | Encounter Summary ---
Demographics + + + | Address | [address] | | | [place] [address] | + + + | Home Phone [...] Team Providers + +------+ + | Care Support Architect Name | Role | Phone | [...] + | 01/02/ | Telephone | [facility] | Daljit Singletary, | Other (chest pain) | | 2018 | | CARDIOLOGY [address] | MD [address] [place] | | | | | [place], | [place], | | | | | [place] [address] | [place] [address] | | | | | [phone] | [phone] | | | | | | | [...] Dx); | | | | | [place] [address] | Presence of | | | | | [phone] | permanent cardiac | | | | [...] | | | | | | [place] [address] | | | | | | [phone] | | | | | | | | +--------+ + + + + documented as of this encounter Visit Diagnoses Not on filedocumented in this encounter"
--- OUTSIDE RECORDS SUMMARY | ~2019-11-12 | XMS | Encounter Summary ---
Demographics + + + | Address | [address] | | | [place] [address] | + + + | Home Phone [...] Providers + +------+ + | Care Account Officer Name | Role | Phone | [...] [place] | | | | | | [address] | | | | | | [phone] | | | +--------+ + + + [...] | 2018 | Monitor | | [address] [place] | Interrogation | | | | | [place], | (Primary Dx); | | | | | [place] [address] | Presence of | | | | | [phone] | permanent cardiac | | | | [...] W | | | | | | [place], | | | | | | [place] [address] | | | | | [phone] | | | | | | | | +--------+ + + + + documented as of this encounter Visit Diagnoses Not on filedocumented in this encounter"
--- OUTSIDE RECORDS SUMMARY | ~2019-11-12 | XMS | Encounter Summary ---
Demographics + + + | Address | [address] | | | [place] [address] | + + + | Home Phone [...] Team Providers + +------+ + | Care Strap Stitcher Name | Role | Phone | [...] | [address] [place] [place] | [place] [address] | | | | | [address] | [phone] | | | | | [phone] | | | +--------+ + + + [...] Dx); | | | | | [place] [address] | Presence of | | | | | [phone] | permanent cardiac | | | | [...] [place], | | | | | | [place] [address] | | | | | | [phone] | | | | | | | | +--------+ + + + + documented as of this encounter Visit Diagnoses Not on filedocumented in this encounter"
--- OUTSIDE RECORDS SUMMARY | ~2019-11-12 | XMS | Encounter Summary ---
Demographics + + + | Address | [address] | | | [place] [address] | + + + | Home Phone [...] Providers + +------+ + | Care District Wire Chief Name | Role | Phone | + +------+ + PCP | Unavailable | + +------+ + Encounter Details +--------+ + + + + | Date | Type | Department | Care Team | Description | +--------+ + + + + | 08/02/ | Hospital | [facility] | | | | 2001 | Encounter | MED CTR EMERGENCY | | | | | | [place] [address] | | | | | | [place] | | | | | | [address] | | | | | | [phone] | | | +--------+ + + + [...] Dx); | | | | | [place] [address] | Presence of | | | | | [phone] | permanent cardiac | | | | [...] | | | | | | [place], | | | | | | [place] [address] | | | | | | [phone] | | | | | | | | +--------+ + + + + documented as of this encounter Visit Diagnoses Not on filedocumented in this encounter"
--- OUTSIDE RECORDS SUMMARY | ~2019-11-12 | XMS | Encounter Summary ---
Demographics + + + | Address | [address] | | | [place] [address] | + + + | Home Phone [...] Team Providers + +------+ + | Care Lapel Stitcher Name | Role | Phone | [...] | Emmanuel E, MD | [address] [place] | | | | | unspecified | [address] | [place], | | | | | type | [place], [place] | [place] | | | | | Abdominal | [address] [place] | [address] | | | | | cramping | [place], [place] | Phone: | | | | | Generalized | [address] | [phone] | | | | | abdominal | Phone: | Fax: | | | | | pain | [phone] | [phone] | | | | | Procedures | Fax: | | | | | | CT Abdomen | [phone] | | | | | | Pelvis [...] 2019 | | GASTROENTEROLOGY | [address] [place], [place] | (stomach cramps and | | | | [address] [place] | [address] [place], [place] | liquid stool) | | | | [address] [place], [place] | [address] | | | | | [address] | | | | | | [phone] | | | +--------+ + + + [...] Dx); | | | | | [place] [address] | Presence of | | | | | [phone] | permanent cardiac | | | | [...] | | | | | | [place], | | | | | | [place] [address] | | | | | | [phone] | | | | | | | [...]
--- OUTSIDE RECORDS SUMMARY | ~2019-11-12 | XMS | Encounter Summary ---
Demographics + + + | Address | [address] | | | [place] [address] | + + + | Home Phone [...] Team Providers + +------+ + | Care Geographic Analyst Name | Role | Phone | [...] | on | GASTROENTEROLOGY | [address], [place] | | | | | [address] [place] | [address] [place], [place] | | | | | [address] [place], [place] | [address] | | | | | [address] | | | | | | [phone] | | | +--------+ + + + [...] Dx); | | | | | [place] [address] | Presence of | | | | | [phone] | permanent cardiac | | | | [...] | | | | | | [place] [address] | | | | | | [phone] | | | | | | | | +--------+ + + + + documented as of this encounter Visit Diagnoses Not on filedocumented in this encounter"
--- OUTSIDE RECORDS SUMMARY | ~2019-11-12 | XMS | Encounter Summary ---
Demographics + + + | Address | [address] | | | [place] [address] | + + + | Home Phone [...] Team Providers + +------+ + | Care Shelf Filler Name | Role | Phone | [...] AVE | | | | | [facility] | [place] | | | | | [place], [place] | [address] | | | | | [address] | | | | | | [phone] | | | +--------+ + + + [...] Interrogation | | | | | [place], | (Primary Dx); | | | | | [place] [address] | Presence of | | | | | [phone] | permanent cardiac | | | | [...] W | | | | | | [place], | | | | | | [place] [address] | | | | | | [phone] | | | | | | | | +--------+ + + + + documented as of this encounter Visit Diagnoses Not on filedocumented in this encounter"
--- OUTSIDE RECORDS SUMMARY | ~2019-11-12 | XMS | Encounter Summary ---
Demographics + + + | Address | [address] | | | [place] [address] | + + + | Home Phone [...] Providers + +------+ + | Care Manager Hiv Name | Role | Phone | + [...] | | CARDIOLOGY [address] | TECHNICAL INTERNSHIP [address] | | | | | [place], | [place], [place] | | | | | [place] [address] | [address] | | | | | [phone] | | | +--------+--------+ + + + [...] Dx); | | | | | [place] [address] | Presence of | | | | | [phone] | permanent cardiac | | | | [...] | | | | | | [place] [address] | | | | | | [phone] | | | | | | | | +--------+ + + + + documented as of this encounter Visit Diagnoses Not on filedocumented in this encounter"
--- OUTSIDE RECORDS SUMMARY | ~2019-11-12 | XMS | Encounter Summary ---
Demographics + + + | Address | [address] | | | [place] [address] | + + + | Home Phone [...] Providers + +------+ + | Care Strategic Marketing Specialist Name | Role | Phone | + +------+ + PCP | Unavailable | + +------+ + Encounter Details +--------+ + + + + | Date | Type | Department | Care Team | Description | +--------+ + + + + | 07/20/ | [facility] | [facility] | Hunter Antunez, | | | 2009 - | Encounter | MED CTR MED ONC | [address] | | | | | [address] [place] | [place] | | | 07/24/ | | [place] [address] | [address] | | | 2009 | | [phone] | | | +--------+ + + + [...] 2019 | Monitor | | [address] | Interrogation | | | | | [place], | (Primary Dx); | | | | | [place] [address] | Presence of | | | | | [phone] | permanent cardiac | | | | [...] | | | | | | [place], | | | | | | [place] [address] | | | | | | [phone] | | | | | | | | +--------+ + + + + documented as of this encounter Visit Diagnoses Not on filedocumented in this encounter"
--- OUTSIDE RECORDS SUMMARY | ~2019-11-12 | XMS | Encounter Summary ---
Demographics + + + | Address | [address] | | | [place] [address] | + + + | Home Phone [...] Team Providers + +------+ + | Care Neurosurgical Nurse Name | Role | Phone | + +------+ + | Kirk French MD | PCP | | + +------+ + Encounter Details +--------+ + + + + | Date | Type | Department | Care Team | Description | +--------+ + + + + | 08/29/ | Hospital | [facility] | [place] | DVT (deep venous | | 2015 | Encounter | MED CTR ULTRASOUND | [place] [address] | thrombosis), | | | | [address] [place] | [place], | bilateral (HCC) | | | | [place], [place] | [place] [address] | | | | | [address] | [phone] | | | | | [phone] | | | +--------+ + + + [...] + + + +---------+ + + | [place]-3 Fatty | CAPS, one capsule by | [...] | | | | | | | #[id number], exp 07/2016 | | | | | [...] | 2018 | Monitor | | [address] [place] | Interrogation | | | | | [place], | (Primary Dx); | | | | | [place] [address] | Presence of | | | | | [phone] | permanent cardiac | | | | [...] | | | | | | [place] [address] | | | | | | [phone] | | | | | | | [...] the groin through the popliteal fossa | [facility] | | in both lower [...] conveyed to the ordering provider, by the lens gauger, | | | immediately following the exam. [...] to the ordering provider, by the | |lens gauger, immediately following the exam. | | | [...] [address] | [place] | [phone] | | [facility] | | [address] | | | - IMAGING | | | | + + + + + documented in this encounter Visit Diagnoses + + | Diagnosis | + + | DVT (deep venous thrombosis), bilateral | + + documented in this encounter"
--- OUTSIDE RECORDS SUMMARY | ~2019-11-12 | XMS | Encounter Summary ---
Demographics + + + | Address | [address] | | | [place] [address] | + + + | Home Phone [...] Providers + +------+ + | Care Telephone Plant Power Operator Name | Role | Phone | [...] Provider Unknown | | | | | [place], [place] | [phone] | | | | | [address] | | | | | | [phone] | | | +--------+ + + + [...] + + + +---------+ + + | Lynx-3 Fatty | CAPS, one capsule by | [...] 2019 | Monitor | | MD [address] [place] | Interrogation | | | | | [place], | (Primary Dx); | | | | | [place] [address] | Presence of | | | | | [phone] | permanent cardiac | | | | [...] W | | | | | | [place], | | | | | | [place] [address] | | | | | | [phone] | | | | | | | [...]
--- OUTSIDE RECORDS SUMMARY | ~2019-11-12 | XMS | Encounter Summary ---
Demographics + + + | Address | [address] | | | [place] [address] | + + + | Home Phone [...] Team Providers + +------+ + | Care Repeat Photocomposing Machine Operator Name | Role | [...] Refill | | 2013 | | MEDICINE [place] | DO [address] | | | | | [address] | [place] | | | | | [place] | [address] | | | | | [address] | | | | | | [phone] | | | +--------+--------+ + + + [...] | 2018 | Monitor | | [address] [place] | Interrogation | | | | | [place], | (Primary Dx); | | | | | [place] [address] | Presence of | | | | | [phone] | permanent cardiac | | | | [...] | | | | | | [place] [address] | | | | | | [phone] | | | | | | | | +--------+ + + + + documented as of this encounter Visit Diagnoses Not on filedocumented in this encounter"
--- OUTSIDE RECORDS SUMMARY | ~2019-11-12 | XMS | Encounter Summary ---
Demographics + + + | Address | [address] | | | [place] [address] | + + + | Home Phone [...] Team Providers + +------+ + | Care Aerospace Mechanic Name | Role | Phone | [...] | | CARDIOLOGY [address] | Janeen BALLOON SELLER [address] | | | | | [place], | [place], | | | | | [place] [address] | [place] [address] | | | | | [phone] | [phone] | | | | | | | [...] Interrogation | | | | | [place], | (Primary Dx); | | | | | [place] [address] | Presence of | | | | | [phone] | permanent cardiac | | | | [...] W | | | | | | [place], | | | | | | [place] [address] | | | | | | [phone] | | | | | | | | +--------+ + + + + documented as of this encounter Visit Diagnoses Not on filedocumented in this encounter"
--- OUTSIDE RECORDS SUMMARY | ~2019-11-12 | XMS | Encounter Summary ---
Demographics + + + | Address | [address] | | | [place] [address] | + + + | Home Phone [...] Team Providers + +------+ + | Care Hydramatic Mechanic Name | Role | Phone | [...] | | CARDIOLOGY [address] | Janeen BUSINESS SYSTEM CONSULTANT [address] | mixed | | | | [place], | [place], | | | | | [place] [address] | [place] [address] | | | | | [phone] | [phone] | | | | | | | [...] 2018 | Monitor | | MD [address] [place] | Interrogation | | | | | [place], | (Primary Dx); | | | | | [place] [address] | Presence of | | | | | [phone] | permanent cardiac | | | | [...] W | | | | | | [place], | | | | | | [place] [address] | | | | | | [phone] | | | | | | | | +--------+ + + + + documented as of this encounter Visit Diagnoses + + | Diagnosis | + + | Hyperlipidemia, mixed Mixed hyperlipidemia | + + documented in this encounter"
--- OUTSIDE RECORDS SUMMARY | ~2019-11-12 | XMS | Encounter Summary ---
Demographics + + + | Address | [address] | | | [place] [address] | + + + | Home Phone [...] + +------+ + | Care Double End Production Grinder Name | Role | Phone | [...] + | 11/26/ | Telephone | [facility] | [place], | Appointment (Needs | | 2017 | | CARDIOLOGY [address] | [place] [address] | rescheduled) | | | | [place], | [place], | | | | | [place] [address] | [place] [address] | | | | | [phone] | [phone] | | | | | | | [...] 2019 | Monitor | | MD [address] [place] | Interrogation | | | | | [place], | (Primary Dx); | | | | | [place] [address] | Presence of | | | | | [phone] | permanent cardiac | | | | [...] W | | | | | | [place], | | | | | | [place] [address] | | | | | | [phone] | | | | | | | | +--------+ + + + + documented as of this encounter Visit Diagnoses Not on filedocumented in this encounter"
--- OUTSIDE RECORDS SUMMARY | ~2019-11-12 | XMS | Encounter Summary ---
Demographics + + + | Address | [address] | | | [place] [address] | + + + | Home Phone [...] Providers + +------+ + | Care Oil Burner Name | Role | Phone | + [...] | 07/30/ | Telephone | [facility] | Michael Amanda, | Results | | 2013 | | MEDICINE [place] | DO [address] | | | | | [address] | [place] | | | | | [place] | [address] | | | | | [address] | | | | | | [phone] | | | +--------+ + + + [...] | 2018 | Monitor | | [address] [place] | Interrogation | | | | | [place], | (Primary Dx); | | | | | [place] [address] | Presence of | | | | | [phone] | permanent cardiac | | | | [...] W | | | | | | [place], | | | | | | [place] [address] | | | | | | [phone] | | | | | | | | +--------+ + + + + documented as of this encounter Visit Diagnoses Not on filedocumented in this encounter"
--- OUTSIDE RECORDS SUMMARY | ~2019-11-12 | XMS | Encounter Summary ---
Demographics + + + | Address | [address] [place] [address] | | | [place] [address] | + + + | Home Phone [...] [place] | | | | | [address] | | + + + + + Care Team Providers + +------+ + | Care Staff Physical Therapist Name | Role | Phone | [...] 2019 | | Center at [facility] [address] | Gastroenterology | Gastroenterology | | | | [place] | | | | | | Mailcode: [place] | | | | | | [facility] and | | | | | | [place] [address] | | | | | | [place], [place] | | | | | | [address] | | | | | | [phone] | | | +--------+ + + + [...]
--- OUTSIDE RECORDS SUMMARY | ~2019-11-12 | XMS | Encounter Summary ---
Demographics + + + | Address | [address] | | | [place] [address] | + + + | Home Phone [...] + +------+ + | Care Business Analytics Analyst Name | Role | Phone | [...] + | 01/25/ | Telephone | [facility] | Daljit Singletary, | Appointment | | 2017 | | CARDIOLOGY [address] | MD [address] [place] | | | | | [place], | [place], | | | | | [place] [address] | [place] [address] | | | | | [phone] | [phone] | | | | | | | [...] 2019 | Monitor | | MD [address] | Interrogation | | | | | [place], | (Primary Dx); | | | | | [place] [address] | Presence of | | | | | [phone] | permanent cardiac | | | | [...] | | | | | | [place] [address] | | | | | | [phone] | | | | | | | | +--------+ + + + + documented as of this encounter Visit Diagnoses Not on filedocumented in this encounter"
--- OUTSIDE RECORDS SUMMARY | ~2019-11-12 | XMS | Encounter Summary ---
Demographics + + + | Address | [address] | | | [place] [address] | + + + | Home Phone [...] Team Providers + +------+ + | Care Newsstand Vendor Name | Role | Phone | + +------+ + | Kirk French MD | PCP | | + +------+ + Encounter Details +--------+ + + + + | Date | Type | Department | Care Team | Description | +--------+ + + + + | 07/21/ | Hospital | [facility] | Daljit Singletary, | Palpitations; | | 2018 | Encounter | MED CTR NUCLEAR | MD [address] | Presence of | | | | MEDICINE [address] | [place], | permanent cardiac | | | | [place], | [place] [address] | pacemaker; | | | | [address] | [phone] | Sinoatrial node | | | | [phone] | | dysfunction (HCC) | +--------+ + [...] + + + +---------+ + + | [place]-3 Fatty | CAPS, one capsule by | [...] Dx); | | | | | [place] [address] | Presence of | | | | | [phone] | permanent cardiac | | | | [...] W | | | | | | [place], | | | | | | [place] [address] | | | | | | [phone] | | | | | | | [...] 08/25/2018 13:12 Wireless even study from | [facility] | | 07/21 until 08/22/2018. Baseline EKG [...]
--- OUTSIDE RECORDS SUMMARY | ~2019-11-12 | XMS | Encounter Summary ---
Demographics + + + | Address | [address] | | | [place] [address] | + + + | Home Phone [...] Team Providers + +------+ + | Care Partition Notcher Name | Role | Phone | + [...] encounter | | | | [place] | [address] | (Primary Dx) | | | | [address] | [place] | | | | | [phone] | [address] | | | | | | | [...] half hours. 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 I provided patient with Dr. Bradley's card so he may contact us for results. Patient's best phone number: [phone] Renetta Lockwood RN ary Bradshaw MD - [...] Dx); | | | | | [place] [address] | Presence of | | | | | [phone] | permanent cardiac | | | | [...] | | | | | | [place] [address] | | | | | | [phone] | | | | | | | [...] + | MISCELLANEOUS LAB | | | [phone] | + +---------+ + + | MISCELANIOUS LAB | | | [phone] | + +---------+ + + documented in this encounter Visit Diagnoses + + | Diagnosis | + + | Injury of left foot, initial encounter - Primary | + + documented in this encounter
--- OUTSIDE RECORDS SUMMARY | ~2019-11-12 | XMS | Encounter Summary ---
Demographics + + + | Address | [address] | | | [place] [address] | + + + | Home Phone [...] + +------+ + | Care Clinical Research Director Name | Role | Phone | + +------+ + | Michael Amanda DO | PCP | | + +------+ + Encounter Details +--------+ + + + + | Date | Type | Department | Care Team | Description | +--------+ + + + + | 04/03/ | Hospital | [facility] | Jay Gambino MD | | | 2012 - | Encounter | HEART MED CTR | [address] | | | | | CARDIAC TRANSPLANT | [address] [place] | | | 04/04/ | | [address] | [place] [address] | | | 2012 | | [place] | [phone] | | | | | [address] | | | | | | [phone] | | | +--------+ + + + [...] 1960 ADMISSION DATE: 04/03/2013 DISCHARGE DATE: 04/04/2013 [id number] / [id number] ADMISSION DIAGNOSES: 1. Symptomatic premature ventricular contractions [...] study and ablati on. MOE GAY ADM:04/03/13 [id number] 04/04/13 [place] DISCHARGE SUMMARY [id number] [facility] PARISA Hughes [facility] MD Meena Pleitez THIS REPORT IS CONFIDENTIAL AND NOT TO BE RELEASED WITHOUT PROPER AUTHORIZATION. [facility] Mr. Gay was taken to the cardiac [...] 180 mg once daily. MOE GAY ADM:04/03/13 [id number] 04/04/13 [place] DISCHARGE SUMMARY [id number] [facility] PARISA Hughes [facility] MD Meena Pleitez THIS REPORT IS CONFIDENTIAL AND NOT TO BE RELEASED WITHOUT PROPER AUTHORIZATION. [facility] 5. Docusate sodium 2 tablets once daily. 6. Marinol 10 mg twice daily. 7. Metoprolol succinate 200 mg once daily. 8. Oxycodone 10 mg 10 mg oral as needed. 9. Oxycodone 30 mg oral twice daily. 10. Pravastatin 40 mg at bedtime. 11. Promethazine 25 mg as needed. 12. Ranitidine 1 to 2 tablets once daily. 13. [place] oil 2 tablets twice daily. 14. Valacyclovir 500 mg once daily. There were no new medications or medication dosage changes at time of discharge. PLAN: 1. Mr. Gay will be discharged home on medications as noted above, including his usual m edications of diltiazem and metoprolol. 2. He will be seen and followed by Dr. Gambino on 16 at 9:00 a.m. at [facility], [address]. 3. He will contact our office earlier than scheduled appointment should he have any diffic ulty prior to that time. PARISA Hughes MD A P RICHIE/med #[id number] cc: MD Dona Pleitez ARNP Suwong Wongsuwan, MD Electronically Signed 04/12/13 1400 PARISA Hughes Electronically Signed 05/22/13 1245 Jay Gambino MD MOE GAY ADM:04/03/13 [id number] 04/04/13 [place] DISCHARGE SUMMARY [id number] [facility] PARISA Hughes ES B [facility] Jay Gambino MD R THIS REPORT IS CONFIDENTIAL AND NOT TO BE RELEASED WITHOUT PROPER AUTHORIZATION.Electronica lly signed by Jael Brown at 05/22/2013 1:25 PM Dona Grossman ARNP - 04/04/2013 9:05 AM PDT PATIENT NAME: MOE GAY Sex/Age: M / 53Y : 1960 ADMISSION DATE: 04/03/2013 DISCHARGE DATE: 04/04/2013 [id number] / [id number] ADMISSION DIAGNOSES: 1. Symptomatic premature ventricular contractions [...] and ablati on. MOE GAY Jaimee ADM:04/03/13 [id number] 04/04/13 [place] DISCHARGE SUMMARY [id number] [facility] PARISA Hughes [facility] MD Meena Pleitez THIS REPORT IS CONFIDENTIAL AND NOT TO BE RELEASED WITHOUT PROPER AUTHORIZATION. [facility] Mr. Gay was taken to the cardiac [...] 180 mg once daily. MOE GAY ADM:04/03/13 [id number] 04/04/13 [place] DISCHARGE SUMMARY [id number] [facility] PARISA Hughes [facility] MD Meena Pleitez THIS REPORT IS CONFIDENTIAL AND NOT TO BE RELEASED WITHOUT PROPER AUTHORIZATION. [facility] 5. Docusate sodium 2 tablets once daily. 6. Marinol 10 mg twice daily. 7. Metoprolol succinate 200 mg once daily. 8. Oxycodone 10 mg 10 mg oral as needed. 9. Oxycodone 30 mg oral twice daily. 10. Pravastatin 40 mg at bedtime. 11. Promethazine 25 mg as needed. 12. Ranitidine 1 to 2 tablets once daily. 13. Geneva oil 2 tablets twice daily. 14. Valacyclovir 500 mg once daily. There were no new medications or medication dosage changes at time of discharge. PLAN: 1. Mr. Gay will be discharged home on medications as noted above, including his usual m edications of diltiazem and metoprolol. 2. He will be seen and followed by Dr. Gambino on 16 at 9:00 a.m. at [facility], [address]. 3. He will contact our office earlier than scheduled appointment should he have any diffic ulty prior to that time. PARISA Hughes MD A P RICHIE/med #[id number] cc: MD Dona Pleitez ARNP Suwong Wongsuwan, MD Electronically Signed 04/12/13 1400 PARISA Hughes MOE GAY ADM:04/03/13 [id number] 04/04/13 [place] DISCHARGE SUMMARY [id number] [facility] PARISA Hughes [place] [facility] MD Meena Pleitez THIS REPORT IS CONFIDENTIAL [...] + + + +---------+ + + | [place]-3 Fatty | CAPS, one capsule by | [...] Dx); | | | | | [place] [address] | Presence of | | | | | [phone] | permanent cardiac | | | | [...] W | | | | | | [place], | | | | | | [place] [address] | | | | | | [phone] | | | | | | | [...] + + + | Glucose | 94Comment: Hungarian | 65 - 99 mg/dL | [facility] [...] | | | | failure.For | | [place] | | | | Americans, multiply the [...] + + | YESSY SACRED | [address] | [place] [address] | | | [facility] | | | | | [...] + + | YESSY JONES | [address] | [place] [address] | | | [facility] | | | | | LABORATORY | | | | + + + + + documented in this encounter Visit Diagnoses Not on filedocumented in this encounter"
--- OUTSIDE RECORDS SUMMARY | ~2019-11-12 | XMS | Encounter Summary ---
Demographics + + + | Address | [address] | | | [place] [address] | + + + | Home Phone [...] + + | 04/22/ | Hospital | [facility] | | | | 2011 | Encounter | MED CTR XRAY [address] | | | | | | [place] | | | | | | [place] [address] | | | | | | [phone] | | | +--------+ + + + [...] + + + +---------+ + + | [place]-3 Fatty | CAPS, one capsule by [...] MD [address] [facility] | Interrogation | | | | | [place], | (Primary Dx); | | | | | [place] [address] | Presence of | | | | | [phone] | permanent cardiac | | | | [...] | | | | | | [place] [address] | | | | | | [phone] | | | | | | | [...] + + + | [facility] Diagnostic Imaging Department | [facility] | | [address] [facility] | [facility] | | CT MYELOGRAM LUMBAR SPINE, [...] Transcribed Date/Time: | | | 04/23/2012 11:06 Stock Patcher: <Electronically Signed | | | by Jama Solis MD> 04/24/12 0730 | | + + + + + | Procedure Note | + + | Kevin, Rad Conversion - 12/29/2013 5:27 PM [facility] | | Diagnostic Imaging Department [address] [place] [address] | | CT MYELOGRAM LUMBAR SPINE, 04/22/2012 [...] <Electronically Signed by Jama Solis MD> 04/24/12 0930 | | | |L3-4: Minimal broad-based disk [...] 10:54 | |Transcribed Date/Time: 04/23/2012 11:06 | |Stock Patcher: | |<Electronically Signed by Jama Solis MD> 04/24/12 2030 | + + + +---------+ + + [...] + + + | [facility] Diagnostic Imaging Department | [facility] | | [address] [facility] | [facility] | | THORACIC CT MYELOGRAM | [...] Transcribed Date/Time: 04/22/2012 17:32 | | | Stock Patcher: <Electronically Signed by Jama Mason | | | MD Will> 04/23/12 1039 | | + + + + + | Procedure Note | + + | Kalpesh Brown Conversion - 12/29/2013 5:27 PM [facility] | | Diagnostic Imaging Department [address] [place] [address] | | THORACIC CT MYELOGRAM CLINICAL HISTORY: [...] 16:56 | |Transcribed Date/Time: 04/22/2012 17:32 | |Stock Patcher: | |<Electronically Signed by Jama Solis MD> [...] + + + | [facility] Diagnostic Imaging Department | [facility] | | [address] [facility] | [facility] | | CT MYELOGRAM CERVICAL SPINE [...] Similar study from | | | 09/02/2009, [facility]. FINDINGS: Firm bony ankylosis | | | [...] Transcribed Date/Time: | | | 04/22/2012 17:25 Stock Patcher: <Electronically Signed | | | by Jama Solis MD> 04/23/12 1039 | | + + + + + | Procedure Note | + + | Kalpesh Brown Conversion - 12/29/2013 5:27 PM [facility] | | Diagnostic Imaging Department | | [address] [facility] | | | | | | [...] | | COMPARISON: Similar study from 09/02/2009, [facility]. | | | | FINDINGS: Firm bony [...] | Transcribed Date/Time: 04/22/2012 17:25 | | Stock Patcher: | | <Electronically Signed by Jama Solis [...] + + + | [facility] Diagnostic Imaging Department | [facility] | | [address] [facility] | [facility] | | LUMBAR MYELOGRAM INJECTION FOR [...] Transcribed Date/Time: 04/22/2012 16:36 | | | Stock Patcher: <Electronically Signed by Jama Mason | | | MD Will> 04/23/12 1039 | | + + + + + | Procedure Note | + + | Kalpesh Brown Conversion - 12/29/2013 5:27 PM [facility] | | Diagnostic Imaging Department [address] [place] [address] | | LUMBAR MYELOGRAM INJECTION FOR CT [...] 15:51 | |Transcribed Date/Time: 04/22/2012 16:36 | |Stock Patcher: | |<Electronically Signed by Jama Solis MD> [...]
--- OUTSIDE RECORDS SUMMARY | ~2019-11-12 | XMS | Encounter Summary ---
Demographics + + + | Address | [address] | | | [place] [address] | + + + | Home Phone [...] Team Providers + +------+ + | Care Stitching Machine Operator Name | Role | Phone [...] disease involving | | | | [place], | [place], | [place] | | | | [place] [address] | [place] [address] | artery of [place] | | | | [phone] | [phone] | heart without angina | | | [...] Dx); | | | | | [place] [address] | Presence of | | | | | [phone] | permanent cardiac | | | | [...] | | | | | | [place], | | | | | | [place] [address] | | | | | | [phone] | | | | | | | [...] MD | | | | | | ([id number]) on 06/23/2016 | | | | | [...] + + | Coronary artery disease involving [place] coronary artery of [place] heart without | | angina pectoris - Primary | + + | Essential hypertension with goal blood pressure less than 130/80 | + + documented in this encounter"
--- OUTSIDE RECORDS SUMMARY | ~2019-11-12 | XMS | Encounter Summary ---
Demographics + + + | Address | [address] | | | [place] [address] | + + + | Home Phone [...] Providers + +------+ + | Care Tax Specialist Name | Role | Phone | [...] Provider Unknown | | | | | [place], [place] | [phone] | | | | | [address] | (Fax) | | | | | [phone] | | | +--------+ + + + [...] + + +---------+ + + | [place]-3 Fatty | CAPS, one capsule by | [...] | | | | | | | #[id number], exp 07/2016 | | | | | [...] Dx); | | | | | [place] [address] | Presence of | | | | | [phone] | permanent cardiac | | | | [...] | | | | | [place], | | | | | | [place] [address] | | | | | | [phone] | | | | | | | [...]
--- OUTSIDE RECORDS SUMMARY | ~2019-11-12 | XMS | Encounter Summary ---
Demographics + + + | Address | [address] | | | [place] [address] | + + + | Home Phone [...] Providers + +------+ + | Care Fire Tower Keeper Name | Role | Phone | [...] | | CARDIOLOGY [address] | Janeen RN PEDIATRIC ICU [address] | | | | | [place], | [place], | | | | | [place] [address] | [place] [address] | | | | | [phone] | [phone] | | | | | | | [...] Interrogation | | | | | [place], | (Primary Dx); | | | | | [place] [address] | Presence of | | | | | [phone] | permanent cardiac | | | | [...] W | | | | | | [place], | | | | | | [place] [address] | | | | | | [phone] | | | | | | | | +--------+ + + + + documented as of this encounter Visit Diagnoses Not on filedocumented in this encounter"
--- OUTSIDE RECORDS SUMMARY | ~2019-11-12 | XMS | Encounter Summary ---
Demographics + + + | Address | [address] | | | [place] [address] | + + + | Home Phone [...] Team Providers + +------+ + | Care Pick Pack Worker Name | Role | Phone | + +------+ + PCP | Unavailable | + +------+ + Encounter Details +--------+ + + + + | Date | Type | Department | Care Team | Description | +--------+ + + + + | 01/21/ | Emergency | [facility] | Kirill Dominique | Unspecified Chest | | 2009 | | MEDICAL CENTER | MD Jonas [address] | Pain | | | | EMERGENCY CENTER | [address] [place] | | | | | [address] | [address] | | | | | [place] | [phone] | | | | | [address] | | | | | | [phone] | | | +--------+ + + + [...] | 2019 | Monitor | | [address] | Interrogation | | | | | [place], | (Primary Dx); | | | | | [place] [address] | Presence of | | | | | [phone] | permanent cardiac | | | | [...] W | | | | | | [place], | | | | | | [place] [address] | | | | | | [phone] | | | | | | | | +--------+ + + + + documented as of this encounter Visit Diagnoses + + | Diagnosis | + + | Chest pain, unspecified | + + documented in this encounter"
--- OUTSIDE RECORDS SUMMARY | ~2019-11-12 | XMS | Encounter Summary ---
Demographics + + + | Address | [address] | | | [place] [address] | + + + | Home Phone [...] Providers + +------+ + | Care Edging Machine Operator Name | Role | Phone | + +------+ + | Michael Amanda DO | PCP | | + +------+ + Encounter Details +--------+ + + + + | Date | Type | Department | Care Team | Description | +--------+ + + + + | 09/22/ | Hospital | [facility] | Bahman Gant MD | | | 2012 | Encounter | MED CTR XRAY [address] | [address] [place] | | | | | [place] | [address] [place], | | | | | [place] [address] | [place] [address] | | | | | [phone] | [phone] | | | | | | | [...] + + + +---------+ + + | [place]-3 Fatty | CAPS, one capsule by | [...] Interrogation | | | | | [place], | (Primary Dx); | | | | | [place] [address] | Presence of | | | | | [phone] | permanent cardiac | | | | [...] | | | | | | [place] [address] | | | | | | [phone] | | | | | | | | +--------+ + + + + documented as of this encounter Visit Diagnoses Not on filedocumented in this encounter"
--- OUTSIDE RECORDS SUMMARY | ~2019-11-12 | XMS | Encounter Summary ---
Demographics + + + | Address | [address] | | | [place] [address] | + + + | Home Phone [...] Providers + +------+ + | Care Loading Manager Name | Role | Phone | [...] | 02/15/ | Office | [facility] | Silvia, | Symptomatic PVCs | | 2012 | Visit | CARDIOLOGY [address] | PARISA [place] [address] | (Primary Dx); | | | | [place], | [place], | Bradycardia; HTN | | | | [place] [address] | [place] [address] | (hypertension) | | | | [phone] | [phone] | | | | | | | [...] at which time patient was going to [place] for social media specialist co nsult and PVC ablation. Since [...] tablet Take 1,000 mg by mouth Daily. [place]-3 Fatty Acids (SALMON OIL-1000 PO) CAPS, one [...] ventricular arrhythmia performed by Dr. Gambino at [facility] on 01/30/2013. Patient had spontaneous PVCs [...] to go back in 3 days to [place] for an attempt of ablation under general [...] He is in a class II of [place] 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 There is no [...] been encouraged to keep his appointment with social media specialist this coming y to attempt ablation therapy. 4. Follow up appointment in 4-6 weeks. I, PARISA Russell, saw this patient under the direct supervision of Daljit Singletary MD Portions of this report were transcribed using voice recognition software. Every effort wa s made to ensure accuracy; however, inadvertent computerized adult protective caseworker errors may be pre sent. documented in this encounter Plan of Treatment +--------+ + + + + | Date | Type | Specialty | Care Team | Description | +--------+ + + + + | 11/20/ | Implant | Cardiology | Daljit Singletary, | Remote Device | | 2019 | Monitor | | [address] [place] | Interrogation | | | | | [place], | (Primary Dx); | | | | | [place] [address] | Presence of | | | | | [phone] | permanent cardiac | | | | [...] | | | | | | [place] [address] | | | | | | [phone] | | | | | | | [...]
--- OUTSIDE RECORDS SUMMARY | ~2019-11-12 | XMS | Encounter Summary ---
Demographics + + + | Address | [address] | | | [place] [address] | + + + | Home Phone [...] + +------+ + | Care Automotive Tire Testing Supervisor Name | Role | Phone | + +------+ + PCP | Unavailable | + +------+ + Encounter Details +--------+ + + + + | Date | Type | Department | Care Team | Description | +--------+ + + + + | 02/21/ | [facility] | [facility] | Cristy Braun | | | 2008 | Encounter | MED CTR EMERGENCY | Ronald Adrian MD [address] | | | | | SH[address] | [facility] | | | | | [place] | [place] [address] | | | | | [address] | [phone] | | | | | [phone] | | | +--------+ + + + [...] Interrogation | | | | | [place], | (Primary Dx); | | | | | [place] [address] | Presence of | | | | | [phone] | permanent cardiac | | | | [...] W | | | | | | [place], | | | | | | [place] [address] | | | | | | [phone] | | | | | | | | +--------+ + + + + documented as of this encounter Visit Diagnoses Not on filedocumented in this encounter"
--- OUTSIDE RECORDS SUMMARY | ~2019-11-12 | XMS | Encounter Summary ---
Demographics + + + | Address | [address] | | | [place] [address] | + + + | Home Phone [...] Providers + +------+ + | Care Spar Finisher Name | Role | Phone | [...] | CARDIOLOGY [address] | MD [address] [place] | | | | | [place], | [place], | | | | | [place] [address] | [place] [address] | | | | | [phone] | [phone] | | | | | | | [...] Dx); | | | | | [place] [address] | Presence of | | | | | [phone] | permanent cardiac | | | | [...] | | | | | | [place] [address] | | | | | | [phone] | | | | | | | | +--------+ + + + + documented as of this encounter Visit Diagnoses Not on filedocumented in this encounter"
--- OUTSIDE RECORDS SUMMARY | ~2019-11-12 | XMS | Encounter Summary ---
Demographics + + + | Address | [address] | | | [place] [address] | + + + | Home Phone [...] + +------+ + | Care Grocery Clerk Checking Name | Role | Phone | + [...] | | CARDIOLOGY [address] | [address] | | | | | [place], | [place], | | | | | [place] [address] | [place] [address] | | | | | [phone] | [phone] | | | | | | | [...] | Monitor | | MD [address] | Interrogation | | | | | [place], | (Primary Dx); | | | | | [place] [address] | Presence of | | | | | [phone] | permanent cardiac | | | | [...] W | | | | | | [place], | | | | | | [place] [address] | | | | | | [phone] | | | | | | | [...] + | [facility] | [address] | [place], [place] | [phone] | | [facility] | | [address] | | | - LABORATORY | | | | + + + + + | [facility] | [address] | [place] | | | [facility] | | [address] | | | - LABORATORY | | [...] | | | | | [facility] | | | | | - LABORATORY | | | | + +---------+ + + documented in this encounter Visit Diagnoses Not on filedocumented in this encounter"
--- OUTSIDE RECORDS SUMMARY | ~2019-11-12 | XMS | Encounter Summary ---
Demographics + + + | Address | [address] | | | [place] [address] | + + + | Home Phone [...] Providers + +------+ + | Care Cat Scan Technologist Name | Role | Phone | [...] 2012 | | CARDIOLOGY [address] | INVOICE CLERK [address] [place] | | | | | [place], | [place], [place] | | | | | [place] [address] | [address] | | | | | [phone] | | | +--------+ + + + [...] Interrogation | | | | | [place], | (Primary Dx); | | | | | [place] [id number] | Presence of | | | | | [phone] | permanent cardiac | | | | [...] W | | | | | | [place], | | | | | | [place] [address] | | | | | | [phone] | | | | | | | | +--------+ + + + + documented as of this encounter Visit Diagnoses Not on filedocumented in this encounter"
--- OUTSIDE RECORDS SUMMARY | ~2019-11-12 | XMS | Encounter Summary ---
Demographics + + + | Address | [address] | | | [place] [address] | + + + | Home Phone [...] Team Providers + +------+ + | Care Surface Grinder Name | Role | Phone | [...] 2014 | | CARDIOLOGY [address] | AIRWORTHINESS SAFETY INSPECTOR [address] | edema and chest | | | | [place], | [facility], [place] | pain) | | | | [place] [address] | [address] | | | | | [phone] | | | +--------+ + + + [...] Dx); | | | | | [place] [address] | Presence of | | | | | [phone] | permanent cardiac | | | | [...] | | | | | | [place] [address] | | | | | | [phone] | | | | | | | | +--------+ + + + + documented as of this encounter Visit Diagnoses Not on filedocumented in this encounter"
--- OUTSIDE RECORDS SUMMARY | ~2019-11-12 | XMS | Encounter Summary ---
Demographics + + + | Address | [address] | | | [place] [address] | + + + | Home Phone [...] +------+ + | Care Char Filter Operator Name | Role | Phone | + +------+ + | Kirk French MD | PCP | | + +------+ + Encounter Details +--------+ + + + + | Date | Type | Department | Care Team | Description | +--------+ + + + + | 10/25/ | Hospital | [facility] | Kirk French | Chronic pain | | 2017 | Encounter | MED CTR ULTRASOUND | MD Brea Eva LORA | disorder; Stomach | | | | [address] [place] | [address] | ache; Obesity, | | | | [place], [place] | [place] [address] | unspecified | | | | [address] | [phone] | classification, | | | | [phone] | | unspecified obesity | | | | | Vciki Donahue, | type, unspecified | | | [...] | 2018 | Monitor | | [address] | Interrogation | | | | | [place], | (Primary Dx); | | | | | [place] [address] | Presence of | | | | | [phone] | permanent cardiac | | | | [...] W | | | | | | [address] [place], | | | | | | [place] [address] | | | | | | [phone] | | | | | | | [...]
--- OUTSIDE RECORDS SUMMARY | ~2019-11-12 | XMS | Encounter Summary ---
Demographics + + + | Address | [address] | | | [place] [address] | + + + | Home Phone [...] Providers + +------+ + | Care Box Spring Frame Builder Name | Role | Phone | [...] | | [address] | [place] [address] | | | | | [place], [place] | [phone] | | | | | [address] | | | | | | [phone] | | | +--------+ + + + [...] | 2019 | Monitor | | [address] | Interrogation | | | | | [place], | (Primary Dx); | | | | | [place] [address] | Presence of | | | | | [phone] | permanent cardiac | | | | [...] W | | | | | | On[address] [place], | | | | | | [place] [address] | | | | | | [phone] | | | | | | | | +--------+ + + + + documented as of this encounter Visit Diagnoses + + | Diagnosis | + + | Backache, unspecified | + + documented in this encounter"
--- OUTSIDE RECORDS SUMMARY | ~2019-11-12 | XMS | Encounter Summary ---
Demographics + + + | Address | [address] | | | [place] [address] | + + + | Home Phone [...] Providers + +------+ + | Care Operations Consultant Name | Role | Phone | [...] unspecified | [address] | [address] | | | | | type | [address] | [place], | | | | | Procedures | [place], | [place] | | | | | [place] | [place] [address] | [address] | | | | | Stress Test | Phone: | Phone: | | | | | (Vasodilator | [phone] | [phone] | | | | | ) CHG | Fax: | Fax: | | | | | MYOCARDIAL | [phone] | [phone] | | | | | SPECT | | | | | | | MULTIPLE | | | | | | | STUDIES HI | | | | | | | CV STRS TST | | | | | | | XERS&/OR RX | | | | | | | CONT ECG W/O | | | | | | | I&R HI | | | | | | | [...] | type | [address] | [address] | | | | | Procedures | [place] | [place], | | | | | FUP | [place] | [place] [address] | | | | | | [address] | Phone: | | | | | | Phone: | [phone] | | | | | | [phone] | Fax: | | | | | | Fax: | [phone] | | | | | | [phone] | | +--------+ + + + + + Encounter Details +--------+---------+ + + + | Date | Type | Department | Care Team | Description | +--------+---------+ + + + | 06/27/ | Office | [facility] | Sydni Singletary, | Pacemaker | | 2017 | Visit | CARDIOLOGY [address] | [address] [facility] | reprogramming/check | | | | [place], | [place], | DO NOT DELETE | | | | [place] [address] | [place] [address] | (Primary Dx); Chest | | | | [phone] | [phone] | pain, unspecified | | | | [...] non-critical coronary artery d isease involving [place] coronary artery of [place] heart without angina pectoris, essential h ypertension, [...] that time, patient has been seen at [place] emergency department on 018 for chest pain [...] health care Coronary artery disease involving [place] coronary artery of [place] heart without angina pectoris Cannabis abuse, daily [...] mouth every evening 90 tablet 0 [facility] (OSTEO [...] 3RD DOSE, CALL 911 100 tablet 3 Yulan-3 Fatty Acids (SALMON OIL-1000 PO) CAPS, one [...] atrial contractions, including rare couplets; very frequent brabara ature ventricular contractions with occasional ventricular bigeminy [...] to go back in 3 days to [place] for an attempt of ablation under general [...] PVCs. 2. Non-critical Coronary artery disease involving [place] coronary artery of [place] heart [facility] angina pectoris: A. Normal exercise sestamibi stress test on 05/25/09. LVEF by [facility] ed SPECT was 53%. B. Echocardiogram [...] cannot completely be ruled out . [facility] 12/25/13, shows non critical coronary [...] He is in a class I of [place] Heart Association functiona l class. There is [...] of presyncope 05/28/10 [facility], thought to have vasovagal [...] reviewed and edited this note. Allyson Curtis, Hose Tender 06/27/2018 I, Sydni Singletary MD, personally performed the services described in this documentation, as scribed in my presence and it is both accurate and complete. Allyson Curtis, Med Ass t 06/27/2018 14:15 Electronically signed by: Sydni Singletary MD [facility] 06/27/2018 Portions of this chart may have been created with [employer] voice recognition software. Occasi onal wrong-word [...] 2019 | Monitor | | [address] | Interrogation | | | | | [place], | (Primary Dx); | | | | | [place] [address] | Presence of | | | | | [phone] | permanent cardiac | | | | [...] | | | | | | [place] [address] | | | | | | [phone] | | | | | | | [...] SYDNI | | | | | | ([id number]) on 06/27/2018 | | | | | [...]
--- OUTSIDE RECORDS SUMMARY | ~2019-11-12 | XMS | Encounter Summary ---
Demographics + + + | Address | [address] | | | [place] [address] | + + + | Home Phone [...] + +------+ + | Care Air Cargo Ground Operations Supervisor Name | Role | Phone | + +------+ + PCP | Unavailable | + +------+ + Encounter Details +--------+ + + + + | Date | Type | Department | Care Team | Description | +--------+ + + + + | 02/21/ | [facility] | [facility] | Cristy Braun | | | 2008 | Encounter | MED CTR EMERGENCY | Ronald Adrian MD [address] | | | | | CR[address]DER [address] | [facility] | | | | | [place] | [place] [address] | | | | | [address] | [phone] | | | | | [phone] | | | +--------+ + + + [...] Interrogation | | | | | [place], | (Primary Dx); | | | | | [place] [address] | Presence of | | | | | [phone] | permanent cardiac | | | | [...] | | | | | | [place], | | | | | | [place] [address] | | | | | | [phone] | | | | | | | | +--------+ + + + + documented as of this encounter Visit Diagnoses Not on filedocumented in this encounter"
--- OUTSIDE RECORDS SUMMARY | ~2019-11-12 | XMS | Encounter Summary ---
Demographics + + + | Address | [address] | | | [place] [address] | + + + | Home Phone [...] Team Providers + +------+ + | Care Ict Support Technicians Name | Role | Phone | [...] + + | 09/13/ | Office | [facility] | Bahman Gant MD | Other dysphagia | | 2013 | Visit | OTOLARYNGOLOGY [address] | [address] [place] | (Primary Dx) | | | | [address] | [address] [place], | | | | | [place], [place] | [place] [address] | | | | | [address] | [phone] | | | | | [phone] | | | +--------+---------+ + + + [...] MD - 09/13/2013 5:46 PM PDTSee dictation #[id number] signed by Joseph Gant MD at 09/13/2013 5:52 PM Bahman Lamb MD - 09/13/2013 12:00 AM PDT ENT AND AUDIOLOGY [address] [facility] [address] [place] [address] FAX: [phone] OFFICE VISIT The patient gives a history [...] Gant MD GM / MS JOB #: [id number] signed by Bahman Gant MD at 09/14/2013 12:08 PM PDTdocumente d in this encounter Plan of Treatment +--------+ + + + + | Date | Type | Specialty | Care Team | Description | +--------+ + + + + | 11/20/ | Implant | Cardiology | Daljit Singletary, | Remote Device | | 2018 | Monitor | | [address] | Interrogation | | | | | [place], | (Primary Dx); | | | | | [place] [address] | Presence of | | | | | [phone] | permanent cardiac | | | | [...] W | | | | | | Lane [place], | | | | | | [place] [address] | | | | | | [phone] | | | | | | | [...]
--- OUTSIDE RECORDS SUMMARY | ~2019-11-12 | XMS | Encounter Summary ---
Demographics + + + | Address | [address] | | | [place] [address] | + + + | Home Phone [...] abdominal | [address] | [address], | | | | | pain | [address] | [address] | | | | | Chronic pain | [address] | [place], | | | | | syndrome | [place], [place] | [place] [address] | | | | | Procedures | [address] | Phone: | | | | | Office Visit | Phone: | [phone] | | | | | | [phone] | Fax: | | | | | | Fax: | [phone] | | | | | | [phone] | | +--------+--------+ + + + + Encounter Details +--------+---------+ + + + | Date | Type | Department | Care Team | Description | +--------+---------+ + + + | 12/02/ | Office | [facility] [place] | Emmanuel Daniel MD | Diarrhea, | | 2018 | Visit | GASTROENTEROLOGY | [address], [place] | unspecified type | | | | [address] | [address] [place], [place] | (Primary Dx); Weight | | | | [address] [place], [place] | [address] | loss, | | | | [address] | | unintentional; | | | | [phone] | | Generalized | | | | [...] Interrogation | | | | | [place], | (Primary Dx); | | | | | [place] [address] | Presence of | | | | | [phone] | permanent cardiac | | | | [...] W | | | | | | [place], | | | | | | [place] [address] | | | | | | [phone] | | | | | | | [...]
--- OUTSIDE RECORDS SUMMARY | ~2019-11-12 | XMS | Encounter Summary ---
Demographics + + + | Address | [address] [place] [address] | | | [place] [address] | + + + | Home Phone [...] [place] | | | | | [address] | | + + + + + Care Team Providers + +------+ + | Care Tow Car Driver Name | Role | Phone | [...] Yao | | | | | at [facility] | [facility] | | | | | [address] | [place] [address] | | | | | Loop Mailcode: | | | | | | [id number] Yao Booth | | | | | | [facility] | | | | | | [place], [place] | | | | | | [address] | | | | | | [phone] | | | +--------+ + + + [...] view image for the detailed interpretation from [employer] results. | CARDIOLOGY | + + + + + + + + | Performing | Address | City/State/Zipcode | Phone Number | | Organization | | | | + + + + + | [facility] | [address] | [place], [place] | | | CARDIOLOGY | [address] | [address] | | + + + + + documented in this encounter Visit Diagnoses Not on filedocumented in this encounter"
--- OUTSIDE RECORDS SUMMARY | ~2019-11-12 | XMS | Clinical Summary ---
Demographics + + + | Address | [address] | | | [place] [address] | + + + | Home Phone [...] Providers + +------+ + | Care Shop Welder Name | Role | Phone [...] | | + + + +---------+------+------+-------+ | Moulton-3 Fatty | CAPS, one capsule by | [...] + | Overview: Lower back injury (From [facility]) 1980 1984 | + + + [...] + + | Coronary artery disease involving [place] coronary artery of | 12/21/2013 | | [place] heart without angina pectoris | | + [...] | | hemostatic band, by Daljit Singletary [facility] on 07/21/2018 | | shows regadenoson [...] attenuation cannot | | completely be ruled out.[facility] 12/25/13, shows non critical coronary [...] | + + + + + | [facility] | 06/26/2013 | + + + [...] | | CT Angiogram chest w/constrast 05/26/14 [facility] | + + + + + | [...] by Dr. Gambino at [facility] on 01/30/2013. Patient had spontaneous PVCs [...] back in 3 days to | | [place] for an attempt of ablation under general [...] IMPLANTED GENERATOR | | Medtronic DDD ADDR01 [id number] 06/14/09 RV LEAD Medtronic Active | | Bipolar CapSureFix 4076 [id number] 06/14/09 A LEAD Medtronic | | Active Bipolar CapSurFix 4076 [id number] 06/14/09 | + + + +---+ | [...] | Heart Cath, 02/29/2012, LVEF is 65%, [facility], Daljit Singletary, | | [facility] Medicine Myocardial Gated Stress Test, 05/25/2009, EF 53 | | % during rest and 52% during stress. [facility], | | [place], [place].Persantine Sestamibi Stress Test, 06/14/2008, LVEF is | | 60%, [facility], Rashadotto SunshinenL 12/25/13, shows noncritical | | [...] Plan: Nonobstructive CAD noted | | on [facility] from 2013, no EKG changes, [...] | | | | | | unspecified ([facility]); | | | | | | Mixed [...] | 2019 | Monitor | | [address] | Interrogation | | | | | [place], | (Primary Dx); | | | | | [place] [address] | Presence of | | | | | [phone] | permanent cardiac | | | | [...] | | | | | | [place], | | | | | | [place] [address] | | | | | | [phone] | | | | | | | [...] Left: | CAMERON | | 09/27/ | [id number] | | - - [id number]: | | [employer]reter | [employer] | | 2020 | / | | Qty: 1 on 04/13/2019 by | | | - CAMERON | | | /[id number] | | Matthew Uriarte MD at | | | | | | 57 | | [facility] | | | | | | | | [facility] | | | | | | [...] +--------+ +---------+--------+ | MEDICARE | MEDICA | [id number] | 01/21/20 | [phone] | | Medica | | | RE | | 01-Pre | 5 | | re | | | PART A | | sent | | | | | | AND B | | | | | | + +--------+ +--------+ +---------+--------+ | MEDICARE | MEDICA | [id number] | 01/21/20 | [phone] | | Medica | | | RE | | 01-Pre | 5 | | re | | | PART A | | sent | | | | | | AND B | | | | | | + +--------+ +--------+ +---------+--------+ | AARP | AARP | [id number] | | [phone] | | Indemn | | | MDCR | | 016-Pr | 0 | | ity | | | SUPPL | | esent | | | | + +--------+ +--------+ +---------+--------+ | AARP | AARP | [id number] | 11/22/19 | [phone] | | Indemn [...] Person | Self | [birth year] | [address] | | Kirk | cristo/Per | | 1959 | [phone] | [place] | | | roxanne | | | 8 (Home) | [address] | + +--------+ +--------+ + + | Moe Sanchez | Person | Self | [birth year] | | [address] | | [place] | al/Fam | | 1960 | [phone] | [place] | | | roxanne | | | 8 (Home) | [address] | + +--------+ +--------+ + + | Moe Sanchez | Dave | Self | [birth year] | | [address] | | Kirk | Democrat | | [phone] | [phone] | [address] [place] | | | [place] | | | [address] ([place]) | [address] | | | ity | | | | | + +--------+ +--------+ + + Advance Directives + + + + + | Type | Date Recorded | Patient | Explanation | | | | Pantry Goods Maker | | + + + + + | Power of | | | | | Podiatric Physician | | | | + + [...]
--- OUTSIDE RECORDS SUMMARY | ~2019-11-12 | XMS | Encounter Summary ---
Demographics + + + | Address | [address] | | | [place] [address] | + + + | Home Phone [...] Providers + +------+ + | Care Contract Processor Name | Role | Phone | [...] | | CARDIOLOGY [address] | [address] | | | | | [place], | [place], | | | | | [place] [address] | [place] [address] | | | | | [phone] | | | | | | | [...] | 2018 | Monitor | | [address] | Interrogation | | | | | [place], | (Primary Dx); | | | | | [place] [address] | Presence of | | | | | [phone] | permanent cardiac | | | | [...] W | | | | | | [place], | | | | | | [place] [address] | | | | | | [phone] | | | | | | | | +--------+ + + + + documented as of this encounter Visit Diagnoses Not on filedocumented in this encounter"
--- OUTSIDE RECORDS SUMMARY | ~2019-11-12 | XMS | Encounter Summary ---
Demographics + + + | Address | [address] | | | [place] [address] | + + + | Home Phone [...] Team Providers + +------+ + | Care Pasteurizer Helper Name | Role | Phone | [...] | | CARDIOLOGY [address] | Janeen, GIVING OFFICER [address] | reading) | | | | [place], | [place], | | | | | [place] [address] | [place] [address] | | | | | [phone] | | | | | | | [...] Dx); | | | | | [place] [address] | Presence of | | | | | [phone] | permanent cardiac | | | | [...] W | | | | | | [place], | | | | | | [place] [address] | | | | | | [phone] | | | | | | | | +--------+ + + + + documented as of this encounter Visit Diagnoses Not on filedocumented in this encounter"
--- OUTSIDE RECORDS SUMMARY | ~2019-11-12 | XMS | Encounter Summary ---
Demographics + + + | Address | [address] | | | [place] [address] | + + + | Home Phone [...] | | | | CENTER [address] | [place] | (Primary Dx) | | 07/28/ | | [place] | [address] | | | 2017 | | [address] | | | | | | [phone] | | | +--------+ + + + [...] sent through Care Everywhere.Chest Pain, Non cardiac (Turkmen)documented in this encounter Medications at Time of [...] Dx); | | | | | [place] [address] | Presence of | | | | | [phone] | permanent cardiac | | | | [...] | | | | | | [place] [address] | | | | | | [phone] | | | | | | | [...] W?MRN: | | | | | | [id number] | | | [id number] | | | his | | | [...] | | | ent/60 | | | [id number] | | | -5586- | | | [...] | | | St. | | | [facility] | | | y | | [...] | | | ext. | | | [address] | | | or go | | [...] | | | M.D. | | | Acid Strength Inspector | | | al | | | [...] | | | | | | [employer] | | | | | [...] + | [facility] | [address] | [place] | [phone] | | [facility] | | [address] | | | - LABORATORY | | [...] | | | FILTRATION | mL/min/1.73m2 | [facility] | | | FINNISH | RATE,ESTIMATED | | MEDICAL | | | | mL/min/1.32g8Jjmi than | | CENTER - | | [...] | | | | | mg/dL | [facility] | | | | [...] | [address] | [place] | [phone] | | [facility] | | [address] | | | - LABORATORY | | [...] + | [facility] | [address] | [place] | [phone] | | [facility] | | [address] | | | - LABORATORY | | [...] | | | | ANGELA MARADIAGA MD ([id number]) | | | | | | on [...]
--- OUTSIDE RECORDS SUMMARY | ~2019-11-12 | XMS | Encounter Summary ---
Demographics + + + | Address | [address] | | | [place] [address] | + + + | Home Phone [...] Team Providers + +------+ + | Care Cross Tie Maker Name | Role | Phone | [...] Show | | 2012 | | MEDICINE [place] | DO [address] | | | | | [address] | [place] | | | | | [place] | [address] | | | | | [address] | | | | | | [phone] | | | +--------+ + + + [...] | 2018 | Monitor | | [address] | Interrogation | | | | | [place], | (Primary Dx); | | | | | [place] [address] | Presence of | | | | | [phone] | permanent cardiac | | | | [...] W | | | | | | [place], | | | | | | [place] [address] | | | | | | [phone] | | | | | | | | +--------+ + + + + documented as of this encounter Visit Diagnoses Not on filedocumented in this encounter"
--- OUTSIDE RECORDS SUMMARY | ~2019-11-12 | XMS | Clinical Summary ---
Demographics + + + | Address | [address] [place] [address] | | | [place] [address] | + + + | Home Phone [...] [place] | | | | | [address] | | + + + + + Care Team Providers + +------+ + | Care Acid Purification Equipment Operator Name | Role | Phone | + +------+ + | Darion Holden DO | PCP | | + +------+ + Source Comments IVETTE is fully live on both EpicCare Ambulatory and EpicCare InPatient.[facility] Allergies + + + + [...] | | | | | | | [address] | | + +--------+ +--------+ + +--------+ | [employer] | AARP | [phone] | 11/22/19 | [phone] | [address] | Indemn | | RETIRED PEOPLE | | | 10-Pre | 9 | [phone] | ity | | | | | sent | | [place] | | | | | | | | [address] | | + +--------+ +--------+ + +--------+ + +--------+ +--------+ + + | Guarantor Name | Accoun | Relation to | Date | Phone | Billing Address | | | t Type | Patient | of | | | | | | | | | | + +--------+ +--------+ + + | Moe Sanchez | Person | Self | [birth year] | [address] | | | al/Per | | 1959 | [phone] | [place] | | | [place] | | | 8 (Home) | [address] | + +--------+ +--------+ + + Advance Directives + + + + + | Type | Date Recorded | Patient | Explanation | | | | Pick Pulling Machine Tender | | + + + + + | Advance | | | | | Directives and | | | | | Living Will | | | | + + + + + | Power of | | | | | Psychiatric Rn | | | | + + + + +
--- OUTSIDE RECORDS SUMMARY | ~2019-11-12 | XMS | Encounter Summary ---
Demographics + + + | Address | [address] | | | [place] [address] | + + + | Home Phone [...] Team Providers + +------+ + | Care Elephant Keeper Name | Role | Phone | [...] | 01/04/ | Telephone | [facility] | Emmanuel Daniel MD | Other | | 2019 | | GASTROENTEROLOGY | [address], [place] | | | | | [address] [place] | [address] [place], [place] | | | | | [address] [place], [place] | [address] | | | | | [address] | | | | | | [phone] | | | +--------+ + + + [...] Dx); | | | | | [place] [address] | Presence of | | | | | [phone] | permanent cardiac | | | | [...] W | | | | | | [place], | | | | | | [place] [address] | | | | | | [phone] | | | | | | | | +--------+ + + + + documented as of this encounter Visit Diagnoses Not on filedocumented in this encounter"
--- OUTSIDE RECORDS SUMMARY | ~2019-11-12 | XMS | Encounter Summary ---
Demographics + + + | Address | [address] [place] [address] | | | [place] [address] | + + + | Home Phone [...] [place] | | | | | [address] | | + + + + + Care Team Providers + +------+ + | Care Corporate Buyer Name | Role | Phone | [...] | | [facility] | | | | [place], [place] | | | | | | [address] | | | | | | [phone] | | | +--------+------+ + + + [...] Way Lab) | [facility] | | [facility] [place] [address] | REGIONAL | | [place] [address] | LABORATORY | + + + + + + + + | Performing | Address | City/State/Zipcode | Phone Number | | Organization | | | | + + + + + | [facility] | [address] | [place] [address] | | | LABORATORY | | | [...] ([address] [facility]) | | | [facility] [address] | | | [place] [address] | | + + + + + + + + | Performing | Address | City/State/Zipcode | Phone Number | | Organization | | | | + + + + + | [facility] | [address] | [place] [address] | | | LABORATORY | | | [...] | | | DEPARTMENT | | | [place] | | | OF | | | [...] DEPARTMENT OF | [address] | [place] [address] | | | PATHOLOGY | [address] | | | + + + + + documented in this encounter Visit Diagnoses + + | Diagnosis | + + | Chest pain Chest pain, unspecified | + + | Bradycardia Other specified cardiac dysrhythmias | + + documented in this encounter"
--- OUTSIDE RECORDS SUMMARY | ~2019-11-12 | XMS | Encounter Summary ---
Demographics + + + | Address | [address] | | | [place] [address] | + + + | Home Phone [...] Providers + +------+ + | Care Wafer Batter Mixer Name | Role | Phone | [...] [address] | | | | | [address] | [place] | | | | | [phone] | [address] | | | | | | [phone] | | | | | | | [...] 2019 | Monitor | | MD [address] [place] [address] | Interrogation | | | | | [place], | (Primary Dx); | | | | | [place] [address] | Presence of | | | | | [phone] | permanent cardiac | | | | [...] | | | | | | [place] [address] | | | | | | [phone] | | | | | | | [...]
--- OUTSIDE RECORDS SUMMARY | ~2019-11-12 | XMS | Encounter Summary ---
Demographics + + + | Address | [address] | | | [place] [address] | + + + | Home Phone [...] Providers + +------+ + | Care Disability Benefits Specialist Name | Role | Phone | [...] Provider Unknown | | | | | [place], [place] | [phone] | | | | | [address] | | | | | | [phone] | | | +--------+ + + + [...] + + + +---------+ + + | [place]-3 Fatty | CAPS, one capsule by | [...] Dx); | | | | | [place] [address] | Presence of | | | | | [phone] | permanent cardiac | | | | [...] W | | | | | | [place], | | | | | | [place] [address] | | | | | | [phone] | | | | | | | [...]
--- OUTSIDE RECORDS SUMMARY | ~2019-11-12 | XMS | Encounter Summary ---
Demographics + + + | Address | [address] | | | [place] [address] | + + + | Home Phone [...] Providers + +------+ + | Care Lay Midwife Name | Role | Phone | + [...] 2012 | | CARDIOLOGY [address] | WOMEN NURSE [address] | to be referred | | | | [place], | [place], [place] | soon) | | | | [place] [address] | [address] | | | | | [phone] | | | +--------+ + + + [...] Dx); | | | | | [place] [address] | Presence of | | | | | [phone] | permanent cardiac | | | | [...] | | | | | | [place] [address] | | | | | | [phone] | | | | | | | | +--------+ + + + + documented as of this encounter Visit Diagnoses Not on filedocumented in this encounter"
--- OUTSIDE RECORDS SUMMARY | ~2019-11-12 | XMS | Encounter Summary ---
Demographics + + + | Address | [address] | | | [place] [address] | + + + | Home Phone [...] 2017 | | CARDIOLOGY [address] | CHEMISTRY RESEARCH ASSISTANT [address] [place] | | | | | [place], | [place], [place] | | | | | [place] [address] | [address] | | | | | [phone] | | | +--------+--------+ + + + [...] Dx); | | | | | [place] [address] | Presence of | | | | | [phone] | permanent cardiac | | | | [...] | | | | | | [place] [address] | | | | | | [phone] | | | | | | | | +--------+ + + + + documented as of this encounter Visit Diagnoses Not on filedocumented in this encounter"
--- OUTSIDE RECORDS SUMMARY | ~2019-11-12 | XMS | Encounter Summary ---
Demographics + + + | Address | [address] | | | [place] [address] | + + + | Home Phone [...] Providers + +------+ + | Care Care Management Coordinator Name | Role | Phone | + +------+ + | Kirk French MD | PCP | | + +------+ + Encounter Details +--------+ + + + + | Date | Type | Department | Care Team | Description | +--------+ + + + + | 01/25/ | Emergency | [facility] | Donald Callahan, | Strain of lumbar | | 2016 | | [facility]ENTER | Russ, DO [address] | paraspinal muscle, | | | | EM[facility]Y CENTER | [address] | initial encounter; | | | | [address] | [place], [place] | Left hip pain | | | | [place], [place] | [address] | | | | | [address] | | | | | | [phone] | | | +--------+ + + + [...] + + + +---------+ + + | [place]-3 Fatty | CAPS, one capsule by | [...] Dx); | | | | | [place] [address] | Presence of | | | | | [phone] | permanent cardiac | | | | [...] W | | | | | | [place], | | | | | | [place] [address] | | | | | | [phone] | | | | | | | [...] Conversion - 07/06/2019 12:12 AM PDT PINA GAY[birth year] years MaleXR | | LUMBAR SPINE LIMITED [...]
--- OUTSIDE RECORDS SUMMARY | ~2019-11-12 | XMS | Encounter Summary ---
Demographics + + + | Address | [address] | | | [place] [address] | + + + | Home Phone [...] Team Providers + +------+ + | Care Snack Foods Mixer Operator Name | Role | Phone [...] | Aneurysmal | Silvia, | [address] | | | | | dilatation | PARISA Solis | [place], | | | | | ([facility]) | [address] | [place] | | | | | Procedures | [address] | [address] | | | | | ECHO | [place], | Phone: | | | | | Complete | [place] | [phone] | | | | | | [address] | Fax: | | | | | | Phone: | [phone] | | | | | | [phone] | | | | | | | Fax: | | | | | | | [phone] | | +--------+--------+ + + + + [...] | | | | | Aneurysmal | Iota, | [address] | | | | | dilatation | PARISA Solis | [place], | | | | | ([facility]) | [address] | [place] | | | | | Procedures | [address] | [address] | | | | | ECHO | [place], | Phone: | | | | | Complete | [place] | [phone] | | | | | | [address] | Fax: | | | | | | Phone: | [phone] | | | | | | [phone] | | | | | | | Fax: | | | | | | | [phone] | | +--------+--------+ + + + + Encounter Details +--------+ + + + + | Date | Type | Department | Care Team | Description | +--------+ + + + + | 11/16/ | Hospital | [facility] | Silvia, | Aneurysmal | | 2017 | Encounter | MED CTR ECHO [address] | Janeen, COMMUNITY HEALTH NURSE SUPERVISOR [address] | dilatation (HCC) | | | | [place] | [place], | | | | | [place], [place] [address] | [place] [address] | | | | | [phone] | [phone] | | | | | | | [...] + + + +---------+ + + | [place]-3 Fatty | CAPS, one capsule by | [...] Dx); | | | | | [place] [address] | Presence of | | | | | [phone] | permanent cardiac | | | | [...] W | | | | | | [place], | | | | | | [place] [address] | | | | | | [phone] | | | | | | | [...] Patient Name VICTOR HUGO | | | NOOKSACK Room Number SARAH Patient | | | [id number] Date of Study 11/16/2017 Number | | | Visit Number [id number] | | | Referring Physician GURJIT TROY Number | | | NORMA SOLIS Date | | | of 1960 Turbine Technician ROMAINE | | | MARISSA TIPTON Age 57 year(s) Interpreting | | | GURJIT TROY | | | On Line Csr SYDNI SINGLETARY, | | | MD | | | Gender Male Nurse | | | Stress Electric Refrigerator Preparer Procedure Type of | | | Study [...] | | | EF | | | Akkjhsnso75% Left Ventricle Diastolic Dimension: 5.12 cm | [...] Volume: 46.33 ml | | | EF Tjxsvcuoh03% | | | | | | Left [...] BARRY Room Number SARAH | | Patient [id number] Date of Study 11/16/2017 Number Visit Number | | [id number] Referring Physician GURJIT TROY | | Number NORMA SOLIS Date of | | 1960 Turbine Technician ROMAINE TIPTON [facility] Age 57 year(s) | | Interpreting GURJIT TROY On Line Csr | | SYDNI SINGLETARY MD | | [...] [place] Volume: 46.33 ml | | EF Nojmiilae73% Left Ventricle Diastolic Dimension: 5.12 cm Systolic [...] [place] Volume: 46.33 ml | | EF Nzlhdtgln78% | | | | Left Ventricle | [...]
--- OUTSIDE RECORDS SUMMARY | ~2019-11-12 | XMS | Encounter Summary ---
Demographics + + + | Address | [address] [place] [address] | | | [place] [address] | + + + | Home Phone [...] [place] | | | | | [address] | | + + + + + Care Team Providers + +------+ + | Care Real Time Analyst Name | Role | Phone | [...] [facility] [address] | MD [address] | | | | | [address] | [facility] [place] | | | | | Mailcode: [place] | [address] | | | | | for Health and | [phone] | | | | | [facility] 2 | | | | | | [facility] [place] | | | | | | [address] | | | | | | [phone] | | | +--------+ + + + [...]
--- OUTSIDE RECORDS SUMMARY | ~2019-11-12 | XMS | Encounter Summary ---
Demographics + + + | Address | [address] | | | [place] [address] | + + + | Home Phone [...] Team Providers + +------+ + | Care Horticultural Specialty Grower Inside Name | Role | Phone | + [...] [address] | | | | | [place], | [place], | | | | | [place] [address] | [place] [address] | | | | | [phone] | | | | | | | [...] | 2018 | Monitor | | [address] [place] | Interrogation | | | | | [place], | (Primary Dx); | | | | | [place] [address] | Presence of | | | | | [phone] | permanent cardiac | | | | [...] | | | | | | [place], | | | | | | [place] [address] | | | | | | [phone] | | | | | | | | +--------+ + + + + documented as of this encounter Visit Diagnoses Not on filedocumented in this encounter"
--- OUTSIDE RECORDS SUMMARY | ~2019-11-12 | XMS | Encounter Summary ---
Demographics + + + | Address | [address] | | | [place] [address] | + + + | Home Phone [...] Providers + +------+ + | Care Hand Packer/Packager Name | Role | Phone | + [...] | | | | | | [place] [id number] | | | | | | [phone] | | | +--------+ + + + [...] | 2019 | Monitor | | [address] [place] | Interrogation | | | | | [place], | (Primary Dx); | | | | | [place] [address] | Presence of | | | | | [phone] | permanent cardiac | | | | [...] | | | | | | [place] [address] | | | | | | [phone] | | | | | | | | +--------+ + + + + documented as of this encounter Visit Diagnoses Not on filedocumented in this encounter"
--- OUTSIDE RECORDS SUMMARY | ~2019-11-12 | XMS | Encounter Summary ---
Demographics + + + | Address | [address] | | | [place] [address] | + + + | Home Phone [...] Providers + +------+ + | Care Auto Vinyl Top Installer Name | Role | [...] W | | | | | [place], | [place], | | | | | [place] [address] | [place] [address] | | | | | [phone] | | | | | | | [...] | | | | | [place], | (Primary Dx); | | | | | [place] [address] | Presence of | | | | | [phone] | permanent cardiac | | | | [...] | | | | | | [place], | | | | | | [place] [address] | | | | | | [phone] | | | | | | | | +--------+ + + + + documented as of this encounter Visit Diagnoses Not on filedocumented in this encounter"
--- OUTSIDE RECORDS SUMMARY | ~2019-11-12 | XMS | Encounter Summary ---
Demographics + + + | Address | [address] | | | [place] [address] | + + + | Home Phone [...] Team Providers + +------+ + | Care Mask Former Name | Role | Phone | + +------+ + PCP | Unavailable | + +------+ + Encounter Details +--------+ + + + + | Date | Type | Department | Care Team | Description | +--------+ + + + + | 10/26/ | Hospital | [facility] | | | | 1994 | Encounter | MED CTR EMERGENCY | | | | | | CENTER [address] | | | | | | [place] | | | | | | [address] | | | | | | [phone] | | | +--------+ + + + [...] Dx); | | | | | [place] [address] | Presence of | | | | | [phone] | permanent cardiac | | | | [...] | | | | | | [place], | | | | | | [place] [address] | | | | | | [phone] | | | | | | | | +--------+ + + + + documented as of this encounter Visit Diagnoses Not on filedocumented in this encounter"
--- OUTSIDE RECORDS SUMMARY | ~2019-11-12 | XMS | Encounter Summary ---
Demographics + + + | Address | [address] | | | [place] [address] | + + + | Home Phone [...] + +------+ + | Care Load Out Person Name | Role | Phone | [...] | Palpitations | [address] [place] | | | | | Procedures | [address] [place] [address] | [address] [place] | | | | | ECHO | [place], | [place], [place] | | | | | Complete | [place] [address] | [address] | | | | | | Phone: | Phone: | | | | | | [phone] | [phone] | | | | | | Fax: | Fax: | | | | | | [phone] | [phone] | +--------+--------+ + + + + Reason [...] + | 12/21/ | Office | [facility] | Daljit Singletary, | Palpitations | | 2012 | Visit | CARDIOLOGY [address] | [address] [place] | (Primary Dx); PVC | | | | [place], | [place], | (premature | | | | [place] [address] | [place] [address] | ventricular | | | | [phone] | [phone] | contraction) | | | | | [...] present himself to the emergency department at [facility] in [place], [place]. Today, patient is apprehensive of the [...] tablet Take 1,000 mg by mouth Daily. [place]-3 Fatty Acids (SALMON OIL-1000 PO) CAPS, one [...] tablet Take 1,000 mg by mouth Daily. [place]-3 Fatty Acids (SALMON OIL-1000 PO) CAPS, one [...] Gay Date: December 21, 2012 : 1960 Film Laboratory Technician: PARISA Velazquez Device Accounts Administrator: gShift Labstronic Sense (mV) Impedance (?) Capture (V) Capture (ms) A Lead 4-5.6 423 1.5 0.09 RV Lead >31.36 539 2.0 0.09 LV Lead Battery Impedance (?): 301 Battery Voltage (V): 2.8 CA Interval (ms): 140 AR Interval (ms): 210 VA Conduction: Mode Switch Events: N/A % of time: -SLIP BRIDGE OPERATOR: 0.6 AP-SLIP BRIDGE OPERATOR: 1.3 -VS: 23.9 AP-VS: 74.2 SLIP BRIDGE OPERATOR: Magnetic Rate: 85 LINDA: 65 LEAH: [...] himself to the emerge ncy department at [facility] in [place], [place]. EKG showed normal sinus rhythm with [...] I will d iscuss this option with quality measurement specialist in [place]. 7. Followup in 2-4 weeks. Portions of this report were transcribed using voice recognition software. Every effort wa s made to ensure accuracy; however, inadvertent computerized client relationship executive errors may be pre sent. documented in this encounter Plan of Treatment +--------+ + + + + | Date | Type | Specialty | Care Team | Description | +--------+ + + + + | 11/20/ | Implant | Cardiology | Daljit Singletary, | Remote Device | | 2019 | Monitor | | [address] [place] | Interrogation | | | | | [place], | (Primary Dx); | | | | | [place] [address] | Presence of | | | | | [phone] | permanent cardiac | | | | [...] | | | | | | [place], | | | | | | [place] [address] | | | | | | [phone] | | | | | | | | +--------+ + + + + documented as of this encounter Results ECHO Complete (12/30/2012 4:08 PM PST) + + | Specimen | + + | | + + + + + | Narrative | Performed At | + + + | [facility] | [facility] | | Department [address] [place] [address] | [facility] | | [ rep ct [address]] [ rep ct [facility] | | st zip] Signed | - IMAGING | | | | | Patient Name: MOE GAY | | | Physician: MIGUELINA : 1960 Age: 52 Sex: M Unit | | | #: [id number] Exam Date: 12/30/12 Location: | | | IMG Report #: [id number] Page: | | | %(RAD)RES..mtdd.print.filter("pg") of %(RAD) | | | RES..mtdd.print.filter("tpg") | | | | | | Accession Number: [id number] | | | E C H O C A R D I O G R A P H Y R E P O R T | | | HEIGHT: 76" WEIGHT: 270# | | | SPECIAL TAX AUDITOR: JAMEEL REFERRING DR: TIMMY READING DR: | [...] | | | Transcribed Date/Time: 12/30/2012 16:34 Environmental Aid: | | | <<Signature on File>> | | | Daljit | | | MD Gemini [facility] FASE01/02/13 0955 <Electronically signed by | | | Daljit Singletary MD, [facility], FACP, FASE, FASNC> Rashadong | | | MD CLEOPATRA Singletary FASE 12/30/12 1608 Environmental Aid: Jessica | | | Wqecdbgjimwdi75/08/13 1634 MD ROSEMARY Newby | | | FASE | | + + + + + + + + | Performing | Address | City/[facility] | Phone Number | | Organization | | | | + + + + + | [facility] | [address] | [place] | [phone] | | [facility] | | [address] | | | - IMAGING | | | | + + + + + documented in this encounter Visit Diagnoses + + | Diagnosis | + + | Palpitations - Primary | + + | PVC (premature ventricular contraction) Other premature beats | + + documented in this encounter
--- OUTSIDE RECORDS SUMMARY | ~2019-11-12 | XMS | Encounter Summary ---
Demographics + + + | Address | [address] | | | [place] [address] | + + + | Home Phone [...] + +------+ + | Care High School Director Name | Role | Phone | [...] Provider Unknown | | | | | [place], [place] | [phone] | | | | | [address] | | | | | | [phone] | | | +--------+ + + + [...] + + + +---------+ + + | [place]-3 Fatty | CAPS, one capsule by | [...] Dx); | | | | | [place] [address] | Presence of | | | | | [phone] | permanent cardiac | | | | [...] | | | | | | [place], | | | | | | [place] [address] | | | | | | [phone] | | | | | | | [...]
--- OUTSIDE RECORDS SUMMARY | ~2019-11-12 | XMS | Encounter Summary ---
Demographics + + + | Address | [address] | | | [place] [address] | + + + | Home Phone [...] Team Providers + +------+ + | Care Touch Up Carver Name | Role | Phone | [...] | 06/22/ | Telephone | [facility] [place] [facility] | Vasiliy Michael Kelsey, | Eye Problem | | 2012 | | [facility] [place] | DO [address] | | | | | [address] | [place] | | | | | [place] | [address] | | | | | [address] | | | | | | [phone] | | | +--------+ + + + [...] Dx); | | | | | [place] [address] | Presence of | | | | | [phone] | permanent cardiac | | | | [...] W | | | | | | [place], | | | | | | [place] [address] | | | | | | [phone] | | | | | | | | +--------+ + + + + documented as of this encounter Visit Diagnoses Not on filedocumented in this encounter"
--- OUTSIDE RECORDS SUMMARY | ~2019-11-12 | XMS | Encounter Summary ---
Demographics + + + | Address | [address] [place] [address] | | | [place] [address] | + + + | Home Phone [...] [place] | | | | | [address] | | + + + + + Care Team Providers + +------+ + | Care Juvenile Justice Officer Name | Role | Phone | [...]
--- OUTSIDE RECORDS SUMMARY | ~2019-11-12 | XMS | Encounter Summary ---
Demographics + + + | Address | [address] | | | [place] [address] | + + + | Home Phone [...] Team Providers + +------+ + | Care Wiener Packer Name | Role | Phone | + +------+ + PCP | Unavailable | + +------+ + Encounter Details +--------+ + + + + | Date | Type | Department | Care Team | Description | +--------+ + + + + | 02/21/ | [facility] | [facility] | Geri Angel, | | | 2011 | Encounter | MED CTR XRAY [address] | DOOR ATTENDANT [address] | | | | | [place] | St [place] | | | | | [place] [address] | [address] | | | | | [phone] | | | +--------+ + + + [...] Dx); | | | | | [place] [address] | Presence of | | | | | [phone] | permanent cardiac | | | | [...] | | | | | | [place] [address] | | | | | | [phone] | | | | | | | | +--------+ + + + + documented as of this encounter Visit Diagnoses Not on filedocumented in this encounter"
--- OUTSIDE RECORDS SUMMARY | ~2019-11-12 | XMS | Encounter Summary ---
Demographics + + + | Address | [address] | | | [place] [address] | + + + | Home Phone [...] | | | | exertion | | [address] [place] | | | | | Chest pain | | [place], [place] | | | | | on exertion | | [address] | | | | | | | Phone: | | | | | | | [phone] | | | | | | | Fax: | | | | | | | [phone] | +--------+--------+ + + + + Encounter Details +--------+ + + + + | Date | Type | Department | Care Team | Description | +--------+ + + + + | 04/27/ | Emergency | [facility] | Martell Hart | Chest pain on | | 2014 - | | [facility] | Sanjay Palacios MD | exertion (Primary | | | | [address] [place] | [address] | Dx); Dyspnea on | | 03/20/ | | [place] [address] | [place] | exertion; Essential | | 2014 | | [phone] | [address] | hypertension; Acute | | | | | | chest pain; | | | | | Parth Kraft, | Dizziness, | | | | | [address] | nonspecific; Mixed | | | | | [place], [place] | anxiety depressive | | | | | [address] | disorder; PUD | | | | | [phone] | (peptic ulcer | | | | [...] might be different f rom the original. [facility] DISCHARGE SUMMARY Pt. Name/Age/: Moe Sanchez [...] 911 aka: NITROSTAT ONE TOUCH DELICA LANCETS [facility] Check glucose as needed for hypoglycemia OSTEO [...] Daily. to reduce urinary frequency - Lot #[id number], exp 07/2016 aka: RAPAFLO UNCODED MEDICATION - [...] hospital follow up Contact information: [address] [address] Call PARISA Russell. Specialty: Nurse Practitioner Why: As needed Contact information: [address] [place] [address] Condition: Patient being discharged with condition improved. Diet: Heart healthy, avoid acidic drinks and foods, spicy foods, too much coffee. Greater than 30 minutes were spent on discharge and coordination of post-hospital care. Electronically signed by: Thierry Fregoso DO, 03/20/2015 11:22 [facility] Portions of this chart may have been created with [employer] voice recognition software. Occasi onal wrong-word [...] afford the prescribed medication, you can try ikxq-sbu-jhqiswa acid blockers, such as Pepcid AC, Tagamet, [...] or as directed by your healthcare provider [phone] [employer]. [address] [place] [address]. All righ ts reserved. This information is [...] + + + +---------+ + + | Bridgeton-3 Fatty | CAPS, one capsule by | [...] | | | | | | | #[id number], exp 07/2016 | | | | | [...] DO - 03/19/2015 10:09 PM PDT . [facility] PROGRESS NOTE Patient: Moe Sanchez : 1960: Age: 55 y.o. MedRec: [id number] PCP: Kirk French Admission date: 03/18/2015 Hospital [...] 1708 03/18/15 1528 TROPONINI <0.01 <0.01 0.01 [facility] ECHOCARDIOGRAM REPORT STUDY DATE: 03/19/2015 PATIENT [...] changes. No results for input(s): PHART, PO2ART, XUS4AOL, HEL0UDC, BEART, F1CCDLTE in the last 168 h ours. No results for input(s): SPECSOURCE, PHPOCB, HCO3, TCO2, BEART, BE, FZYB9APU in the last 16 8 hours. Invalid input(s): GFSSN1NR, AAPF2CL Point of care glucose: No results for [...] today. Thierry Fregoso DO 03/19/2015 22:09 [facility] Portions of this chart may have been created with [employer] voice recognition software. Occasi onal wrong-word or sound-alike substitutions may have occurred due to the inherent granger itations of voice recognition software. Please read the chart carefully and recognize, using context, where these substitutions have occurred Belén Cho RN - 03/19/2015 11:03 AM [id number] Report given to Marlen morejon who is [...] Dx); | | | | | [place] [address] | Presence of | | | | | [phone] | permanent cardiac | | | | [...] | | | | | | [place] [address] | | | | | | [phone] | | | | | | | [...] Performed At | + + + | [facility] ECHOCARDIOGRAM REPORT | | | STUDY [...] [facility] 03/19/2015 15:44 | | | Clinical Research Manager: Dewey Valdez RDMS | | + [...] | | | | | | [employer] | | | | | [...] [address] | [place] | [phone] | | [facility] | | [address] | | | - LABORATORY | | [...] | mL/min/1.73m2 | MICHELLE | | | ETHIOPIAN | RATE,ESTIMATED | | MEDICAL | | | | mL/min/1.15k5Vvts than | | CENTER - | | [...] [address] | [place] | [phone] | | [facility] | | [address] | | | - LABORATORY | | [...] [address] | [place] | [phone] | | [facility] | | [address] | | | - LABORATORY | | [...] | | | | | | [employer] | | | | | [...] ST. | [address] | [place] | [phone] | | [facility] | | [address] | | | - [...] [address] | [place] | [phone] | | [facility] | | [address] | | | - LABORATORY | | [...] [address] | [place] | [phone] | | [facility] | | [address] | | | - LABORATORY | | [...] [address] | [place] | [phone] | | [facility] | | [address] | | | - LABORATORY | | [...] + | [facility] | [address] | [place] | [phone] | | [facility] | | [address] | | | - LABORATORY | | [...] | | | | | | [employer] | | | | | [...] + + | Performing | Address | City/State/[facility] Cent[facility]ode | Phone Number | | Organization | | | | + + + + + | [facility] | [address] | [place] | [phone] | | [facility] | | [address] | | | - LABORATORY | | [...] [address] | [place] | [phone] | | [facility] | | [address] | | | - LABORATORY | | [...] | | | FILTRATION | mL/min/1.73m2 | [facility] | | | ETHIOPIAN | RATE,ESTIMATED | | MEDICAL | | | | mL/min/1.31y7Tone than | | CENTER - | | [...] + | [facility] | [address] | [place] | [phone] | | [facility] | | [address] | | | - LABORATORY | | [...] [address] | [place] | [phone] | | [facility] | | [address] | | | - LABORATORY | | [...]
--- OUTSIDE RECORDS SUMMARY | ~2019-11-12 | XMS | Encounter Summary ---
Demographics + + + | Address | [address] | | | [place] [address] | + + + | Home Phone [...] + +------+ + | Care Service Parts Driver Name | Role | Phone | + +------+ + | Michael Amanda DO | PCP | | + +------+ + Encounter Details +--------+ + + + + | Date | Type | Department | Care Team | Description | +--------+ + + + + | 11/03/ | Emergency | [facility] | Eliel Calzada, | Palpitations; | | 2013 - | | MEDICAL CENTER | MD Chiquis ORO | Atypical chest pain | | | | EMERGENCY CENTER | [place] [facility] [place] | | | 11/04/ | | [address] | [address] | | | 2013 | | [place], [place] | | | | | | [address] | | | | | | [phone] | | | +--------+ + + + [...] Dx); | | | | | [place] [address] | Presence of | | | | | [phone] | permanent cardiac | | | | [...] | | | | | | [place], | | | | | | [place] [address] | | | | | | [phone] | | | | | | | [...] CHEST 2 VIEW FRONTAL | | AND RCOMBHN5211/03/2014 11:56 PM History: 54 years. Male. Acute [...] | | | | performed at [facility];[address] | | LAB | | | | [address];[place] | | | | | | [address] | | | | + + + + + -+ | RED CELL | 4.97Comment: Testing | 4.20 - 5.70 | EXTERNAL | | | COUNT | performed at [facility];888 | M/uL | LAB | | | | [address];[place] | | | | | | [address] | | | | + + + + + -+ | Hgb | 16.8Comment: Testing | 13.2 - 17.0 | EXTERNAL | | | | performed at [facility];888 | g/dL | LAB | | | | [address];[place] | | | | | | [address] | | | | + + + + + -+ | Hematocrit, | 48.2Comment: Testing | 39.0 - 50.0 % | EXTERNAL | | | POC | performed at [facility];[address] | | LAB | | | | [address];[place] | | | | | | [address] | | | | + + + + + -+ | MCV | 97.1Comment: Testing | 80.0 - 100.0 fl | EXTERNAL | | | | performed at [facility];[address] | | LAB | | | | [address];[place] | | | | | | [address] | | | | + + + + + -+ | MCH | 33.9Comment: Testing | 27.0 - 34.0 pg | EXTERNAL | | | | performed at [facility];[address] | | LAB | | | | [address];[place] | | | | | | [address] | | | | + + + + + -+ | MCHC | 34.9Comment: Testing | 32.0 - 35.5 | EXTERNAL | | | | performed at [facility];888 | g/dL | LAB | | | | [address];[place] | | | | | | [address] | | | | + + + + + -+ | RDW-CV | 42.4Comment: Testing | 37 - 53 fl | EXTERNAL | | | | performed at [facility];[address] | | LAB | | | | [address];[place] | | | | | | [address] | | | | + + + + + -+ | Platelet | 143 (L)Comment: Testing | 150 - 400 K/uL | EXTERNAL | | | Count | performed at [facility];888 | | LAB | | | Plasma | [address];[place] | | | | | | [address] | | | | + + + + + -+ | MPV | 9.0Comment: Testing | fl | EXTERNAL | | | | performed at [facility];[address] | | LAB | | | | [address];[place] | | | | | | [address] | | | | + + + + + -+ | Differentia | AUTOMATEDComment: | | EXTERNAL | | | l Type | Testing performed at | | LAB | | | | [facility];[address] | | [address];[place] [address] | | | | + + + + + -+ | % Segmented | 61.6Comment: Testing | % | EXTERNAL | | | | performed at [facility];[address] | | LAB | | | Neutrophils | [address];[place] | | | | | | [address] | | | | + + + + + -+ | % | 27.8Comment: Testing | % | EXTERNAL | | | Lymphocytes | performed at [facility];[address] | | LAB | | | | [address];[place] | | | | | | [address] | | | | + + + + + -+ | % Monocytes | 8.7Comment: Testing | % | EXTERNAL | | | | performed at [facility];[address] | | LAB | | | | [address];[place] | | | | | | [address] | | | | + + + + + -+ | % | 0.8Comment: Testing | % | EXTERNAL | | | Eosinophils | performed at [facility];[address] | | LAB | | | | [address];[place] | | | | | | [address] | | | | + + + + + -+ | % Basophils | 1.1Comment: Testing | % | EXTERNAL | | | | performed at [facility];[address] | | LAB | | | | [address];[place] | | | | | | [address] | | | | + + + + + -+ | Absolute | 5.4Comment: Testing | 1.9 - 7.4 K/uL | EXTERNAL | | | Segmented | performed at [facility];888 | | LAB | | | Neutrophils | [address];[place] | | | | | | [address] | | | | + + + + + -+ | Absolute | 2.4Comment: Testing | 1.0 - 3.9 K/uL | EXTERNAL | | | Lymphocytes | performed at [facility];888 | | LAB | | | | [address];[place] | | | | | | [address] | | | | + + + + + -+ | Absolute | 0.8Comment: Testing | 0 - 0.8 K/uL | EXTERNAL | | | Monocytes | performed at [facility];888 | | LAB | | | | [address];[place] | | | | | | [address] | | | | + + + + + -+ | Absolute | 0.1Comment: Testing | 0 - 0.5 K/uL | EXTERNAL | | | Eosinophils | performed at [facility];888 | | LAB | | | | [address];[place] | | | | | | [address] | | | | + + + + + -+ | Absolute | 0.1Comment: Testing | 0 - 0.1 K/uL | EXTERNAL | | | Basophils | performed at [facility];[address] | | LAB | | | | [address];[place] | | | | | | [address] | | | | + + + + + -+ | RBC | SLIDE SCANNED, AGREES | | EXTERNAL | | | Morphology | WITH AUTOMATED | | LAB | | | | RESULTS.Comment: Testing | | | | | | performed at [facility];[address] | | | | | | [address];[place] | | | | | | [address] | | | | + + + + + -+ | Na | 140Comment: Testing | 135 - 143 | EXTERNAL | | | | performed at [facility];888 | mmol/L | LAB | | | | [address];[place] | | | | | | [address] | | | | + + + + + -+ | K | 3.9Comment: Testing | 3.5 - 4.9 | EXTERNAL | | | | performed at [facility];888 | mmol/L | LAB | | | | [address];[place] | | | | | | [address] | | | | + + + + + -+ | Cl | 107Comment: Testing | 99 - 109 mmol/L | EXTERNAL | | | | performed at [facility];888 | | LAB | | | | [address];[place] | | | | | | [address] | | | | + + + + + -+ | CO2 | 28Comment: Testing | 23 - 32 mmol/L | EXTERNAL | | | | performed at [facility];[address] | | LAB | | | | [address];[place] | | | | | | [address] | | | | + + + + + -+ | Anion Gap | 9Comment: Testing | 5 - 20 mmol/L | EXTERNAL | | | | performed at [facility];[address] | | LAB | | | | [address];[place] | | | | | | [address] | | | | + + + + + -+ | Glucose, | 97Comment: Testing | 65 - 99 mg/dL | EXTERNAL | | | Fasting | performed at [facility];[address] | | LAB | | | | [address];[place] | | | | | | [address] | | | | + + + + + -+ | BUN | 14Comment: Testing | 8 - 25 mg/dL | EXTERNAL | | | | performed at [facility];[address] | | LAB | | | | [address];[place] | | | | | | [address] | | | | + + + + + -+ | Creatinine | 0.98Comment: Testing | 0.70 - 1.30 | EXTERNAL | | | | performed at [facility];888 | mg/dL | LAB | | | | [address];[place] | | | | | | [address] | | | | + + + + + -+ | BUN/Creatin | 14Comment: Testing | | EXTERNAL | | | ine Ratio | performed at [facility];[address] | | LAB | | | | [address];[place] | | | | | | [address] | | | | + + + + + -+ | Calcium | 8.8Comment: Testing | 8.5 - 10.2 | EXTERNAL | | | | performed at [facility];888 | mg/dL | LAB | | | | [address];[place] | | | | | | [address] | | | | + + + + + -+ | Protein, | 6.9Comment: Testing | 6.3 - 8.2 g/dL | EXTERNAL | | | Total | performed at [facility];[address] | | LAB | | | | [address];[place] | | | | | | [address] | | | | + + + + + -+ | Albumin | 3.7Comment: Testing | 3.6 - 5.0 g/dL | EXTERNAL | | | | performed at [facility];[address] | | LAB | | | | [address];[place] | | | | | | [address] | | | | + + + + + -+ | Globulin | 3.2Comment: Testing | 1.3 - 4.9 g/dL | EXTERNAL | | | | performed at [facility];888 | | LAB | | | | [address];[place] | | | | | | [address] | | | | + + + + + -+ | A/G Ratio | 1.2Comment: Testing | 1.0 - 2.4 | EXTERNAL | | | | performed at [facility];[address] | | LAB | | | | [address];[place] | | | | | | [address] | | | | + + + + + -+ | Bilirubin | 0.9Comment: Testing | 0.1 - 1.5 mg/dL | EXTERNAL | | | Total | performed at [facility];[address] | | LAB | | | | [address];[place] | | | | | | [address] | | | | + + + + + -+ | ALP, | 60Comment: Testing | 35 - 115 U/L | EXTERNAL | | | External | performed at [facility];[address] | | LAB | | | | [address];[place] | | | | | | [address] | | | | + + + + + -+ | AST | 22Comment: Testing | 10 - 45 U/L | EXTERNAL | | | | performed at [facility];[address] | | LAB | | | | [address];[place] | | | | | | [address] | | | | + + + + + -+ | ALT | 37Comment: Testing | 10 - 65 U/L | EXTERNAL | | | | performed at [facility];888 | | LAB | | | | [facility];[place] | | | | | | [address] | | | | + + + [...] | | | | | at [facility];[address] [facility] | | | | | | Blvd;[place] [address] | | | | + + + + + -+ | CK, Total | 103Comment: Testing | 55 - 400 U/L | EXTERNAL | | | | performed at [facility];888 | | LAB | | | | [facility] | | | | | | [address] | | | | + + + [...] | | | | performed at [facility];[address] | | | | | | [address];[place] | | | | | | [address] | | | | + + + + + -+ | aPTT, | 26Comment: Testing | 23 - 32 seconds | EXTERNAL | | | Patient | performed at [facility];[address] | | LAB | | | | [address];[place] | | | | | | [address] | | | | + + + + + -+ | CK-MB | 2.9Comment: Testing | 0.5 - 3.6 ng/mL | EXTERNAL | | | | performed at [facility];888 | | LAB | | | | [address];[place] | | | | | | [address] | | | | + + + [...] | | | | performed at [facility];888 | uIU/mL | LAB | | | | [address];[place], [place] | | | | | | [address] | | | | + + + [...] | | | | performed at [facility];888 | | LAB | | | | [address];[place] | | | | | | [address] | | | | + + + [...] | | | | performed at [facility] | | LAB | | | | [address];[place] | | | | | | [address] | | | | + + + [...] | | | | | ONLY, -COMPUTER ([phone]), | | | | | | department editor Michelle Butcher | | | | [...]
--- OUTSIDE RECORDS SUMMARY | ~2019-11-12 | XMS | Encounter Summary ---
Demographics + + + | Address | [address] | | | [place] [address] | + + + | Home Phone [...] Providers + +------+ + | Care Medical Art Therapist Name | Role | Phone [...] | Palpitations | [address] | | | | | Procedures | [address] | [address] [place] | | | | | ECHO | [place], | [place], [place] | | | | | Complete | [place] [address] | [address] | | | | | | Phone: | Phone: | | | | | | [phone] | [phone] | | | | | | Fax: | Fax: | | | | | | [phone] | [phone] | +--------+--------+ + + + + Encounter Details +--------+ + + + + | Date | Type | Department | Care Team | Description | +--------+ + + + + | 12/30/ | Hospital | [facility] | TimmyshaistateshaShaistatimmy, | Palpitations | | 2012 - | Encounter | MED CTR XRAY [address] | MD [address] | | | | | [place] | [address] [place], | | | 01/01/ | | [place] [address] | [place] [address] | | | 2012 | | [phone] | [phone] | | | | | | | [...] Interrogation | | | | | [place], | (Primary Dx); | | | | | [place] [address] | Presence of | | | | | [phone] | permanent cardiac | | | | [...] W | | | | | | [place], | | | | | | [place] [address] | | | | | | [phone] | | | | | | | [...] Performed At | + + + | [facility] | [place] | | Department [address] [facility] | [facility] | | [ rep ct street[address]] [ rep ct [facility] | st zip] Signed | - IMAGING | | | | | Patient Name: MOE GAY W | | | Physician: MIGUELINA : 1960 Age: 52 Sex: M Unit | | | #: [id number] Exam Date: 12/30/12 Location: | | | G Report #: [id number] Page: | | | %(RAD)RES..mtdd.print.filter("pg") of %(RAD) | | | RES..mtdd.print.filter("tpg") | | | | | | Accession Number: [id number] | | | E C H O C A R D I O G R A P H Y R E P O R T | | | HEIGHT: 76" WEIGHT: 270# | | | INVOICE CONTROL CLERK: JAMEEL REFERRING DR: TIMMY DRAKE DR: [...] | | | Transcribed Date/Time: 12/30/2012 16:34 Machine Shop Worker: | | | <<Signature on File>> | | | Daljit | | | MD CLEOPATRA Singletary FASE01/02/13 0955 <Electronically signed by | | | Daljit Singletary MD, [facility], FACP, FASE, FASNC> Rashadong | | | MD CLEOPATRA Singletary 12/30/12 1608 Machine Shop Worker: [employer] | | | Gnocyhlefcywm43/08/13 1634 Daljit Singletary MD FACC | | | FASE | | + + + + + + + + | Performing | Address | City/State/Zipcode | Phone Number | | Organization | | | | + + + + + | [facility] | [address] | [place] | [phone] | | [facility] | | [address] | | | - IMAGING | | | | + + + + + documented in this encounter Visit Diagnoses + + | Diagnosis | + + | Palpitations | + + documented in this encounter
--- OUTSIDE RECORDS SUMMARY | ~2019-11-12 | XMS | Encounter Summary ---
Demographics + + + | Address | [address] | | | [place] [address] | + + + | Home Phone [...] Providers + +------+ + | Care Offset Duplicating Machine Operator Name | Role | Phone | + +------+ + PCP | Unavailable | + +------+ + Encounter Details +--------+ + + + + | Date | Type | Department | Care Team | Description | +--------+ + + + + | 02/01/ | [facility] | [facility] | Evan Gandara MD | | | 2008 - | Encounter | MED CTR MED ONC | [address] [facility] | | | | | [address] [place] | [place] | | | 02/06/ | | [place] [address] | [address] | | | 2008 | | [phone] | | | +--------+ + + + [...] 2019 | Monitor | | [address] | Interrogation | | | | | [place], | (Primary Dx); | | | | | [place] [address] | Presence of | | | | | [phone] | permanent cardiac | | | | [...] W | | | | | | [place], | | | | | | [place] [address] | | | | | | [phone] | | | | | | | | +--------+ + + + + documented as of this encounter Visit Diagnoses Not on filedocumented in this encounter"
--- OUTSIDE RECORDS SUMMARY | ~2019-11-12 | XMS | Encounter Summary ---
Demographics + + + | Address | [address] | | | [place] [address] | + + + | Home Phone [...] + + | 04/07/ | Office | [facility] | Matthew Uriarte | Left ureteral | | 2019 | Visit | [address] | MD Tawanna [address] | calculus (Primary | | | | [place], [place] | [place] | Dx); Kidney stones | | | | [address] | [address] | | | | | [phone] | | | +--------+---------+ + + + [...] April 13, 2019 at 7:45 AM at [facility]. Please report to the [facility] Procedure Center no later than 6:15 AM. REMEMBER: NOTHING TO EAT OR DRINK AFTER MIDNIGHT April 12, 2019. NO FISH OIL, ASPIRIN OR ASPIRIN PRODUCTS ONE WEEK PRIOR TO SURGERY. Tylenol and Advil are OK. You will need to get the following testing done prior to surgery: CBC, BMP YOU WILL NEED TO BRING A MILLER HELPER DISTILLERY WITH YOU THE DAY OF SURGERY. Call us at [phone] with any questions. [] Pain management booklet [...] [employer] Peptic ulcer disease Premature ventricular contraction [facility] care 06/26/2013 LAST PSA:12/16/2010 RESULT:0.14 LAST [...] CV LHC; Surgeon: Daljit Singletary MD; Location: [facility] CV LAB CARDIAC CATHERIZATION N/A 01/25/2019 Procedure: CV Cor Angio; Surgeon: Daljit Singletary MD; Location: [facility] CV LAB COLONOSCOPY N/A 12/24/2017 Procedure: COLONOSCOPY; Surgeon: Emmanuel Daniel MD; Location: [facility] MEDICAL PROCEDURE UNIT COLONOSCOPY N/A 01/05/2019 Procedure: COLONOSCOPY; Surgeon: Emmanuel Daniel MD; Location: [facility] MEDICAL PROCEDURE UNIT EGD 12/24/2017 HARDWARE [...] Procedure: EGD; Surgeon: Emmanuel Daniel MD; Location: [facility] MEDICAL PROCEDURE UNIT UPPER GASTROINTESTINAL ENDOSCOPY N/A 01/05/2019 Procedure: EGD; Surgeon: Emmanuel Daniel MD; Location: [facility] MEDICAL PROCEDURE UNIT VASECTOMY Family History: [...] EVERY DAY, Disp: 90 tablet, Rfl: 3 [facility] Natural Products (OSTEO BI-FLEX/5-LOXIN ADVANCED PO), Take [...] 911, Disp: 100 ta blet, Rfl: 3 [place]-3 Fatty Acids (SALMON OIL-1000 PO), CAPS, one capsule by mouth daily twice daily , Disp: , Rfl: ondansetron (ZOFRAN ODT) 4 mg disintegrating tablet, Take 4 mg by mouth., Disp: , Rfl: ONE TOUCH [place]ICA LANCETS [facility], Check glucose as needed for hypoglycemia, Disp: [...] have not thoroughly proofread this note, and holiday detector operator errors are very likely to occur. CC: Kirk French MD documented in this encounter Plan of Treatment +--------+ + + + + | Date | Type | Specialty | Care Team | Description | +--------+ + + + + | 11/20/ | Implant | Cardiology | Daljit Singletary, | Remote Device | | 2018 | Monitor | | [address] | Interrogation | | | | | [place], | (Primary Dx); | | | | | [place] [address] | Presence of | | | | | [phone] | permanent cardiac | | | | [...] [address] | | | | | | [address] [place], | | | | | | [place] [address] | | | | | | [phone] | | | | | | | [...]
--- OUTSIDE RECORDS SUMMARY | ~2019-11-12 | XMS | Encounter Summary ---
Demographics + + + | Address | [address] | | | [place] [address] | + + + | Home Phone [...] Providers + +------+ + | Care Sliver Handler Name | Role | Phone | [...] + + | 05/26/ | Emergency | [facility] GUTIERREZ [facility] | Lizbeth Green | Atypical chest pain | | 2013 | | [facility] | DO Nicole Fink | (Primary Dx); | | | | CENTER [address] | [place], [place] | Anxiety | | | | [place], [place] | [address] | | | | | [address] | | | | | | [phone] | | | +--------+ + + + [...] + + + +---------+ + + | [place]-3 Fatty | CAPS, one capsule by | [...] | Monitor | | [address] | Interrogation | | | | | [place], | (Primary Dx); | | | | | [place] [address] | Presence of | | | | | [phone] | permanent cardiac | | | | [...] | | | | | | [place] [address] | | | | | | [phone] | | | | | | | [...] the uneventful IV administration of 80 mL [id number] contrast. Timing of | | contrast bolus [...] + | MISCELLANEOUS LAB | | | [phone] | + +---------+ + + | MISCELANIOUS LAB | | | [phone] | + +---------+ + + Troponin I [...] | | | | | | [employer] | | | | | [...] + | [facility] | [address] | [place], [place] | [phone] | | [facility] | | [address] | | | - LABORATORY | | | | + + + + + | [facility] | [address] | [place], [place] | | | [facility] | | [address] | | | - LABORATORY | | [...] 12 | 7 - 18 mg/dL | [facility] | | | | | | [facility] | | | | | | MEDICAL | | | | | | CENTER - | | | | | | LABORATORY | | + + + + + + | Creatinine | 0.89 | 0.60 - 1.30 | [place] | | | | | mg/dL | [facility] | | | | | | MEDICAL | | | | | | CENTER - | | | | | | LABORATORY | | + + + + + + | eGFR if not | >60Comment: GLOMERULAR | >=60 | [place] | | | | FILTRATION | mL/min/1.73m2 | [facility] | | | CAMBODIAN | RATE,ESTIMATED | | MEDICAL | | | | mL/min/1.65x7Cjqo than | | CENTER - | | [...] | ine Ratio | | | [facility] | | [...] + | [facility] | [address] | [place] | [phone] | | [facility] | | [address] | | | - LABORATORY | | | | + + + + + | [facility] | [address] | [place] | | | [facility] | | [address] | | | - LABORATORY | | [...] + | [facility] | [address] | [place] | [phone] | | [facility] | | [address] | | | - LABORATORY | | | | + + + + + | [facility] | [address] | [place] | | | [facility] | | [address] | | | - LABORATORY | | [...]
--- OUTSIDE RECORDS SUMMARY | ~2019-11-12 | XMS | Encounter Summary ---
Demographics + + + | Address | [address] | | | [place] [address] | + + + | Home Phone [...] Providers + +------+ + | Care Meat Pickler Name | Role | Phone | + [...] W | | | | | [place], | [place], | | | | | [place] [address] | [place] [address] | | | | | [phone] | [phone] | | | | | | | [...] | 2018 | Monitor | | [address] [place] | Interrogation | | | | | [place], | (Primary Dx); | | | | | [place] [address] | Presence of | | | | | [phone] | permanent cardiac | | | | [...] | | | | | [place], | | | | | | [place] [address] | | | | | | [phone] | | | | | | | | +--------+ + + + + documented as of this encounter Visit Diagnoses Not on filedocumented in this encounter"
--- OUTSIDE RECORDS SUMMARY | ~2019-11-12 | XMS | Encounter Summary ---
Demographics + + + | Address | [address] | | | [place] [address] | + + + | Home Phone [...] Team Providers + +------+ + | Care Equity Sales Assistant Name | Role | Phone [...] + | 01/30/ | Telephone | [facility] | Daljit Singletary, | Other | | 2019 | | CARDIOLOGY [address] | MD [address] | | | | | [place], | [place], | | | | | [place] [address] | [place] [address] | | | | | [phone] | [phone] | | | | | | | [...] 2019 | Monitor | | MD [address] [place] | Interrogation | | | | | [place], | (Primary Dx); | | | | | [place] [address] | Presence of | | | | | [phone] | permanent cardiac | | | | [...] W | | | | | | [place], | | | | | | [place] [address] | | | | | | [phone] | | | | | | | [...] 05/02/2019, Expires: | | | | | little traverse coronary | 01/30/2020 | | | | | artery of little traverse | | | | | | heart [...] 05/02/2019, Expires: | | | | | little traverse coronary | 01/31/2020 | | | | | artery of little traverse | | | | | | heart without angina | | | | | | pectoris | | | | | | Hyperlipidemia, | | | | | | mixed | | + +------+--------+ + + documented as of this encounter Visit Diagnoses + + | Diagnosis | + + | Coronary artery disease involving little traverse coronary artery of little traverse heart without | | angina pectoris - Primary | + + | Hyperlipidemia, mixed Mixed hyperlipidemia | + + documented in this encounter"
--- OUTSIDE RECORDS SUMMARY | ~2019-11-12 | XMS | Encounter Summary ---
Demographics + + + | Address | [address] | | | [place] [address] | + + + | Home Phone [...] Providers + +------+ + | Care Signal Wirer Name | Role | Phone | [...] + | 08/29/ | Office | [facility] | Silvia, | Essential | | 2015 | Visit | CARDIOLOGY [address] | PARISA [place] [address] | hypertension | | | | [place], | [place], | (Primary Dx); | | | | [place] [address] | [place] [address] | Coronary artery | | | | [phone] | [phone] | disease involving | | | | | | [place] coronary | | | | | | [...] was seen in the emergency room at [facility] on 08/23/20 15 and the ER physician reviewed his chart saying that [facility] are clear of DVT but reveal some venous insufficiency. Today, arian ent tells me that he started having swelling in both his feet within a week when he got to [facility]. He had extensive traveling. He went to [...] Preventative health care Coronary artery disease involving [place] coronary artery without angina pectoris Cannabis abuse, [...] by mouth every evening. 90 tablet 3 [facility] [...] 3rd dose, call 911 100 tablet 3 [place]-3 Fatty Acids (SALMON OIL-1000 PO) CAPS, one [...] Daily. to reduce urinary frequenc y Lot #[id number], exp 07/2016 (Patient taking differently: Take 8 mg by mouth Daily. PATIENT STA YOSELIN NO LONGER TAKING THIS MEDICATION. STATED ON 08/29/2015. to reduce urinary frequency Lot #[id number], exp 07/2016) 21 capsule 0 Specialty Vitamins [...] brought reports to the emergency room at [facility] and according to the not es they [...] to go back in 3 days to [place] for an attempt of ablation under general [...] dizziness. He is in class I-II of 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 T here are [...] this chart may have been created with [employer] voice recognition software. Occasi onal wrong-word or [...] 2019 | Monitor | | MD [address] [place] | Interrogation | | | | | [place], | (Primary Dx); | | | | | [place] [address] | Presence of | | | | | [phone] | permanent cardiac | | | | [...] | | | | | [place], | | | | | | [place] [address] | | | | | | [phone] | | | | | | | [...] the | | | | PDT | [place]ag[place] coronary | results section. | | | [...] HISTORY: DVT. COMPARISON: None. TECHNIQUE: Compression | [facility] | | sonography was performed from the groin through the popliteal fossa | [facility] | | in both lower [...] conveyed to the ordering provider, by the band machine operator, | | | immediately following [...] to the ordering provider, by the | |band machine operator, immediately following the exam. | [...] | [address] | [place] | [phone] | | [facility] | | [address] | | | - IMAGING | | [...] MD | | | | | | ([id number]) on 08/29/2015 | | | | | [...] + + | Coronary artery disease involving [place] coronary artery without angina pectoris | + + | DVT (deep venous thrombosis), bilateral | + + documented in this encounter
--- OUTSIDE RECORDS SUMMARY | ~2019-11-12 | XMS | Encounter Summary ---
Demographics + + + | Address | [address] | | | [place] [address] | + + + | Home Phone [...] Providers + +------+ + | Care Transportation Coordinator Name | Role | Phone | [...] Provider Unknown | | | | | [place], [place] | [phone] | | | | | [address] | | | | | | [phone] | | | +--------+ + + + [...] + + + +---------+ + + | [place]-3 Fatty | CAPS, one capsule by | [...] 2019 | Monitor | | MD [address] [place] | Interrogation | | | | | [place], | (Primary Dx); | | | | | [place] [address] | Presence of | | | | | [phone] | permanent cardiac | | | | [...] W | | | | | | [place], | | | | | | [place] [address] | | | | | | [phone] | | | | | | | [...]
--- OUTSIDE RECORDS SUMMARY | ~2019-11-12 | XMS | Encounter Summary ---
Demographics + + + | Address | [address] [place] [address] | | | [place] [address] | + + + | Home Phone [...] [place] | | | | | [address] | | + + + + + Care Team Providers + +------+ + | Care Pharmacy Student Name | Role | Phone | + [...] | | | | ILA Crane | [facility] [place] | | | | | Mailcode: Center | [address] | | | | | for Health and | [phone] | | | | | [facility] [address] | | | | | | [place], [place] | | | | | | [address] | | | | | | [phone] | | | +--------+ + + + [...]
--- OUTSIDE RECORDS SUMMARY | ~2019-11-12 | XMS | Encounter Summary ---
Demographics + + + | Address | [address] | | | [place] [address] | + + + | Home Phone [...] Team Providers + +------+ + | Care Percher Name | Role | Phone | [...] | | [address] | [place] [address] | | | | | [place] | [phone] | | | | | [address] | | | | | | [phone] | | | +--------+ + + + [...] Interrogation | | | | | [place], | (Primary Dx); | | | | | [place] [address] | Presence of | | | | | [phone] | permanent cardiac | | | | [...] W | | | | | | [place], | | | | | | [place] [address] | | | | | | [phone] | | | | | | | | +--------+ + + + + documented as of this encounter Visit Diagnoses Not on filedocumented in this encounter"
--- OUTSIDE RECORDS SUMMARY | ~2019-11-12 | XMS | Encounter Summary ---
Demographics + + + | Address | [address] | | | [place] [address] | + + + | Home Phone [...] Team Providers + +------+ + | Care Inker Machine Name | Role | Phone | [...] 2014 | | CARDIOLOGY [address] | MEDICAL TRANSLATOR [address] | | | | | [place], | [place], [place] | | | | | [place] [address] | [address] | | | | | [phone] | | | +--------+ + + + [...] Interrogation | | | | | [place], | (Primary Dx); | | | | | [place] [address] | Presence of | | | | | [phone] | permanent cardiac | | | | [...] W | | | | | | [place], | | | | | | [place] [address] | | | | | | [phone] | | | | | | | | +--------+ + + + + documented as of this encounter Visit Diagnoses Not on filedocumented in this encounter"
--- OUTSIDE RECORDS SUMMARY | ~2019-11-12 | XMS | Encounter Summary ---
Demographics + + + | Address | [address] | | | [place] [address] | + + + | Home Phone [...] Team Providers + +------+ + | Care Malt House Supervisor Name | Role | Phone [...] | CARDIOLOGY [address] | MD [address] [place] | | | | | [place], | [place], | | | | | [place] [address] | [place] [address] | | | | | [phone] | [phone] | | | | | | | [...] Dx); | | | | | [place] [address] | Presence of | | | | | [phone] | permanent cardiac | | | | [...] | | | | | | [place] [address] | | | | | | [phone] | | | | | | | | +--------+ + + + + documented as of this encounter Visit Diagnoses Not on filedocumented in this encounter"
--- OUTSIDE RECORDS SUMMARY | ~2019-11-12 | XMS | Encounter Summary ---
Demographics + + + | Address | [address] | | | [place] [address] | + + + | Home Phone [...] + +------+ + | Care Order Entry Representative Name | Role | Phone | [...] 2017 | | CARDIOLOGY [address] | CAREER DEVELOPMENT COORDINATOR [address] [place] | | | | | [place], | [place], [place] | | | | | [place] [address] | [address] | | | | | [phone] | | | +--------+--------+ + + + [...] Dx); | | | | | [place] [address] | Presence of | | | | | [phone] | permanent cardiac | | | | [...] | | | | | | [place] [address] | | | | | | [phone] | | | | | | | | +--------+ + + + + documented as of this encounter Visit Diagnoses Not on filedocumented in this encounter"
--- OUTSIDE RECORDS SUMMARY | ~2019-11-12 | XMS | Encounter Summary ---
Demographics + + + | Address | [address] | | | [place] [address] | + + + | Home Phone [...] Providers + +------+ + | Care High Pressure Kettle Operator Name | Role | Phone | + +------+ + | Kirk French MD | PCP | | + +------+ + Encounter Details +--------+ + + + + | Date | Type | Department | Care Team | Description | +--------+ + + + + | 06/19/ | Orders Only | [facility] | Fabrice Hylton, | Abnormal weight | | 2019 | | SYSTEM GENERIC OP | MD [address] | loss; Anxiety | | | | CONVERSION [address] [place], [place] | disorder; Chronic | | | | [address] [place], [place] | [address] | pain syndrome; | | | | [address] | | Obesity; Neuralgia | | | | [phone] | | and neuritis, | | | [...] Dx); | | | | | [place] [address] | Presence of | | | | | [phone] | permanent cardiac | | | | [...] | | | | | | [place] [address] | | | | | | [phone] | | | | | | | [...]
--- OUTSIDE RECORDS SUMMARY | ~2019-11-12 | XMS | Encounter Summary ---
Demographics + + + | Address | [address] | | | [place] [address] | + + + | Home Phone [...] Providers + +------+ + | Care Band Maker Name | Role | Phone | + +------+ + PCP | Unavailable | + +------+ + Encounter Details +--------+ + + + + | Date | Type | Department | Care Team | Description | +--------+ + + + + | 05/24/ | Hospital | [facility] | Chi Fang | Unspecified Chest | | 2008 - | Encounter | [facility]ENTER | MD Kelsey [address] | Pain | | | | CLINICAL DECISION | [place] HERNANDEZ | | | 05/25/ | | [address] | [address] | | | 2008 | | [place], [place] | [phone] | | | | | [address] | | | | | | [phone] | | | +--------+ + + + [...] 2018 | Monitor | | MD [address] [place] | Interrogation | | | | | [place], | (Primary Dx); | | | | | [place] [address] | Presence of | | | | | [phone] | permanent cardiac | | | | [...] W | | | | | | [place], | | | | | | [place] [address] | | | | | | [phone] | | | | | | | [...] Performed At | + + + | [id number] | | | Page 1 RADIOLOGY | | | CDU 67469/ | | | [facility] | | | C[facility] NAME: PINA [place] [address] | | | | | | | | | DATE OF : 1960 ORDER NUMBER: | | | [id number] EXAM DATE/TIME: 05/25/2009 08:00 A ORDERING PHYSICIAN: | | | CHI FANG ORDER DETAIL: [id number] / / [facility] EXAM | | | DESCRIPTION: NM [...] | | administration of 14.9 mCi of qeuepfqlbp-45w-qfxjysl Myoview. Stress | | | images postinjection [...] | | | images. Prone images demonstrate yarsani of the inferior wall | | | [...] | | A P | | | [id number]/ cc: MD FEMI FOSS, | | | MD CHI FANG, MD AMY BANEGAS DO | | + + + + + | Procedure Note | + + | Kalpesh Brown Conversion - 07/17/2019 2:13 AM PDT | | [id number] Page 1 | | RADIOLOGY CDU 93686/ | | OPO | | [facility] NAME: PINA GAY | | [place] [address] | | | | DATE OF : 1960 | | | | ORDER NUMBER: [id number] | | EXAM DATE/TIME: 05/25/2009 08:00 A [...] administration of 14.9 mCi | | of sgmpyzxvif-27m-qketcgx Myoview. Stress images postinjection of 47.7 | [...] | | | | Prone images demonstrate yarsani of the inferior wall nicely. | | [...] | A | | P | | [id number]/dc/[id number]/ | | cc: ANGELA MARADIAGA MD | | FEMI MARIE MD | | CHI FANG MD | | AMY BANEGAS DO | + + ECHO Complete (05/25/2009 7:50 AM PDT) + + | Specimen | + + | | + + + + + | Narrative | Performed At | + + + | [id number] | | | Page 1 ECHO [facility] NAME: | | | [place] [address] MEDICAL RECORD #: | | | [id number] | | | DATE OF : 1960 ORDER | | | NUMBER: [id number] EXAM DATE/TIME: 05/25/2009 07:34 PERFORMING | | [...] Excursion: | | | 1.89 cm E-F [place]: 0.08 m/s HR: 43.51 BPM AV maxP.11 [...] | | | 0.33 m/s TV Dec [place]: 1.73 m/s2 TV Dec Time: 344.24 ms TV | | | E Bravo: 0.59 m/s TV E/A Ratio: 1.80 TV maxP.40 mmHg TV | | | meanP.44 mmHg TV Vmax: 0.59 m/s TV Vmean: 0.30 m/s TV | | | VTI: 22.88 cm Retort Kiln Burner: ANTHONY Authenticated by: Edwardo Tee | | | Carlos WINKLER Report Date/Time: 05-25-2009 10:19:52 | | + + + + + | Procedure Note | + + | Kalpesh Brown Conversion - 07/17/2019 2:13 AM [facility] [id number] | | Page [address] [place] [address] NAME: [place] | | [address] : ACCOUNT #: | | [id number]: DATE OF : 1960ORDER NUMBER: | | [id number] DATE/TIME: 05/25/2009 07:34PERFORMING PHYSICIAN: Edwardo Gonzalez | [...] mlLAESV Index (A-L): 26.03 ml/m2LAAs A2C: 14.93 [id number] A-L | | A2C: 44.50 mlLALs A2C: 4.25 cmLAAs A4C: 18.42 [id number] A-L A4C: 55.79 mlLALs | | A4C: 5.16 cmAo Diam: 3.91 cmAV Cusp: 2.23 cmLA Diam: 3.79 cmLA/Ao: 0.96%FS: | | 43.37 %EDV(Teich): 146.19 mlEF(Teich): 73.99 %ESV(Teich): 38.01 mlIVSd: 1.57 | | cmIVSs: 1.79 cmLVIDd: 5.48 cmLVIDs: 3.10 cmLVPWd: 1.32 cmLVPWs: 1.79 | | cmSV(Teich): 108.18 mlD-E Excursion: 1.89 cmE-F [place]: 0.08 m/sHR: 43.51 BPMAV | | maxP.11 mmHgAV meanP.33 mmHgAV Vmax: 1.74 m/Zabrina Vmean: 1.06 m/Zabrina VTI: | | 35.51 cmAVA Vmax: 2.77 cm2AVA (VTI): 2.54 jx3RYCG Dopp: 3.00 l/oxra9PBYT Dopp: | | 6.33 l/minHR: 70.25 BPMLVOT maxP.78 mmHgLVOT meanP.02 mmHgLVSI Dopp: | | 42.76 ml/m2LVSV Dopp: 90.23 mlLVOT Vmax: 1.30 m/sLVOT Vmean: 0.80 m/sLVOT VTI: | | 24.35 cmMV A Bravo: 0.70 m/sMV DecT: 242.46 msMV E Bravo: 0.91 m/sMV E/A Ratio: | | 1.31MV maxP.40 mmHgMV meanP.82 mmHgMV Vmax: 0.92 m/sMV Vmean: 0.37 m/sMV | | VTI: 26.47 cmMVA (VTI): 3.40 mp7Zlrica e': 0.08 m/sSeptal E/e': 11.24HR: | | 60.55 BPMPV maxP.04 mmHgPV meanP.39 mmHgPV Vmax: 0.87 m/sPV Vmean: 0.55 | | m/sPV VTI: 19.09 cmRAP: 5 mmHgRVSP: 21.72 mmHgTR maxP.72 mmHgTR Vmax: | | 2.04 m/sTV A Bravo: 0.33 m/sTV Dec [place]: 1.73 m/s2TV Dec Time: 344.24 msTV E Bravo: | | 0.59 m/sTV E/A Ratio: 1.80TV maxP.40 mmHgTV meanP.44 mmHgTV Vmax: 0.59 | | m/sTV Vmean: 0.30 m/sTV VTI: 22.88 cm Retort Kiln Burner: KVWAuthenticated by: Edwardo Tee | | Carlos [...] | |D-E Excursion: 1.89 cm | |E-F [place]: 0.08 m/s | |HR: 43.51 BPM | [...] A Bravo: 0.33 m/s | |TV Dec [place]: 1.73 m/s2 | |TV Dec Time: 344.24 ms | |TV E Bravo: 0.59 m/s | |TV E/A Ratio: 1.80 | |TV maxP.40 mmHg | |TV meanP.44 mmHg | |TV Vmax: 0.59 m/s | |TV Vmean: 0.30 m/s | |TV VTI: 22.88 cm | | | |Retort Kiln Burner: KVW | |Authenticated by: Edwardo Gonzalez MD | |Report Date/Time: 05-25-2009 10:19:52 | + + CT Head wo Contrast (05/24/2009 12:58 PM PDT) + + | Specimen | + + | | + + + + + | Narrative | Performed At | + + + | [id number] | | | Page 1 RADIOLOGY | | | CDU 56587/ | | | [facility] | | | CENTER NAME: [place] [address] | | | | | | | | | DATE OF : 1960 ORDER NUMBER: | | | [id number] EXAM DATE/TIME: 05/24/2009 12:47 P ORDERING PHYSICIAN: [...] | | asymmetrically dense vessel about the augustine of Pearson. No | | | hydrocephalus. [...] 08:45 P P P | | | [facility]/tp/[id number]/ cc: MD ANGELA AVENDAÑO MD | | | MD AMY HAM DO | | + + + + + | Procedure Note | + + | Kalpesh Brown Conversion - 07/17/2019 2:13 AM PDT | | [id number] Page 1 | | RADIOLOGY CDU 21728/ | | OPO | | [facility] NAME: PINA GAY | | [place] [address] | | | | DATE OF : 1960 | | | | ORDER NUMBER: [id number] | | EXAM DATE/TIME: 05/24/2009 12:47 P [...] is no asymmetrically dense vessel about the augustine of Pearson. No | | hydrocephalus. Some [...] | P | | P | | [facility]/tp/[id number]/ | | cc: VINAY HILL MD | | ANGELA MARADIAGA MD | | FEMI MARIE MD | | AMY BANEGAS, DO | + + XR Chest 2 Vws (05/24/2009 11:31 AM PDT) + + | Specimen | + + | | + + + + + | Narrative | Performed At | + + + | [id number] | | | Page 1 RADIOLOGY | | | [facility] [address]/ | | | OPO [facility] | | | CENTER NAME: [place] [address] | | | | | | | | | DATE OF : 1960 ORDER NUMBER: | | | [id number] EXAM DATE/TIME: 05/24/2009 11:19 A ORDERING PHYSICIAN: [...] DT: | | | 05/24/2009 05:38 P [id number]/[id number]/ cc: VINAY HILL MD | | | MD FEMI FOSS MD JOSEPH | | | P BASSAM DO | | + + + + + | Procedure Note | + + | Kalpesh Brown Conversion - 07/17/2019 2:13 AM PDT | | [id number] Page 1 | | RADIOLOGY CDU 46358/ | | OPO | | [facility] NAME: PINA GAY | | [place] [address] | | | | DATE OF : 1960 | | | | ORDER NUMBER: [id number] | | EXAM DATE/TIME: 05/24/2009 11:19 A [...] | | Read by | | FEMI MRAIE MD 05/24/2009 12:19 P | | Electronically Signed by | | FEMI MARIE MD 05/24/2009 08:45 P | | | | P | | P | | [id number]//[id number]/ | | cc: VINAY HILL MD | | ANGELA MARADIAGA MD | | FEMI MARIE MD | | AMY BANEGAS DO | + + documented in this encounter Visit Diagnoses + + | Diagnosis | + + | Chest pain, unspecified | + + documented in this encounter"
--- OUTSIDE RECORDS SUMMARY | ~2019-11-12 | XMS | Encounter Summary ---
Demographics + + + | Address | [address] | | | [place] [address] | + + + | Home Phone [...] Providers + +------+ + | Care Stock Patch Sawyer Name | Role | Phone | + +------+ + PCP | Unavailable | + +------+ + Encounter Details +--------+ + + + + | Date | Type | Department | Care Team | Description | +--------+ + + + + | 03/08/ | [facility] | [facility] | Emmanuel Daniel MD | | | 2006 | Encounter | MED CTR GENERIC OP | [address] | | | | | CONV DEPT [address] | [address] | | | | | [place], | [address] | | | | | [place] [address] | | | | | | [phone] | | | +--------+ + + + [...] Dx); | | | | | [place] [address] | Presence of | | | | | [phone] | permanent cardiac | | | | [...] | | | | | | [place] [address] | | | | | | [phone] | | | | | | | | +--------+ + + + + documented as of this encounter Visit Diagnoses Not on filedocumented in this encounter"
--- OUTSIDE RECORDS SUMMARY | ~2019-11-12 | XMS | Encounter Summary ---
Demographics + + + | Address | [address] | | | [place] [address] | + + + | Home Phone [...] Providers + +------+ + | Care Scientific Illustrator Name | Role | Phone | [...] + | 09/01/ | Telephone | [facility] | Sil[place], | Appointment | | 2016 | | CARDIOLOGY [address] | [place] [address] | (Reschedule) | | | | [address], | [place], | | | | | [place] [address] | [place] [address] | | | | | [phone] | [phone] | | | | | | | [...] Dx); | | | | | [place] [id number] | Presence of | | | | | [phone] | permanent cardiac | | | | [...] | | | | | | [place] [address] | | | | | | [phone] | | | | | | | | +--------+ + + + + documented as of this encounter Visit Diagnoses Not on filedocumented in this encounter"
--- OUTSIDE RECORDS SUMMARY | ~2019-11-12 | XMS | Encounter Summary ---
Demographics + + + | Address | [address] | | | [place] [address] | + + + | Home Phone [...] Providers + +------+ + | Care Certified Vehicle Fire Investigator Name | Role | Phone | [...] CARDIOLOGY [address] | MD [address] | Interrogation | | | | [place], | [place], | (Primary Dx); | | | | [place] [address] | [place] [address] | Pacemaker; | | | | [phone] | [phone] | Sinoatrial node | | | | [...] Dx); | | | | | [place] [address] | Presence of | | | | | [phone] | permanent cardiac | | | | [...] W | | | | | | [place], | | | | | | [place] [address] | | | | | | [phone] | | | | | | | [...] scanned into | | | [facility] for remote interrogation results. Data collected by [...]
--- OUTSIDE RECORDS SUMMARY | ~2019-11-12 | XMS | Encounter Summary ---
Demographics + + + | Address | [address] | | | [place] [address] | + + + | Home Phone [...] Team Providers + +------+ + | Care Straddle Carrier Operator Name | Role | Phone | [...] Problem | | 2012 | | [facility] [place] | DO [address] | | | | | [address] | [place] | | | | | [place] | [address] | | | | | [address] | | | | | | [phone] | | | +--------+ + + + [...] Dx); | | | | | [place] [address] | Presence of | | | | | [phone] | permanent cardiac | | | | [...] | | | | | | [place] [address] | | | | | | [phone] | | | | | | | | +--------+ + + + + documented as of this encounter Visit Diagnoses Not on filedocumented in this encounter"
--- OUTSIDE RECORDS SUMMARY | ~2019-11-12 | XMS | Encounter Summary ---
Demographics + + + | Address | [address] | | | [place] [address] | + + + | Home Phone [...] Providers + +------+ + | Care Division Superintendent Name | Role | Phone | [...] + | 11/05/ | Telephone | [facility] | Daljit Singletary, | Chest Pain | | 2016 | | CARDIOLOGY [address] | MD [address] [place] | | | | | [place], | [place], | | | | | [place] [address] | [place] [address] | | | | | [phone] | [phone] | | | | | | | [...] 2019 | Monitor | | [facility] | Interrogation | | | | | [place], | (Primary Dx); | | | | | [place] [address] | Presence of | | | | | [phone] | permanent cardiac | | | | [...] | | | | | | [place], | | | | | | [place] [address] | | | | | | [phone] | | | | | | | | +--------+ + + + + documented as of this encounter Visit Diagnoses Not on filedocumented in this encounter"
--- OUTSIDE RECORDS SUMMARY | ~2019-11-12 | XMS | Encounter Summary ---
Demographics + + + | Address | [address] | | | [place] [address] | + + + | Home Phone [...] Providers + +------+ + | Care Academic Counselor Name | Role | Phone | [...] | | | pain | [address] | [address] | | | | | Procedures | [place] | [place], | | | | | [place] Nuclear | [place], [place] | [place] | | | | | Stress Test | [address] | [address] | | | | | (Vasodilator | Phone: | Phone: | | | | | ) CHG | [phone] | [phone] | | | | | MYOCARDIAL | Fax: | Fax: | | | | | SPECT | [phone] | [phone] | | | | | MULTIPLE | [...] 2012 | | CARDIOLOGY [address] | ELECTRICAL ACCESSORIES ASSEMBLER [address] | interactions, chest | | | | [place], | [place], [place] | pain) | | | | [place] [address] | [address] | | | | | [phone] | | | +--------+ + + + [...] 2019 | Monitor | | MD Sim [address] | Interrogation | | | | | [place], | (Primary Dx); | | | | | [place] [address] | Presence of | | | | | [phone] | permanent cardiac | | | | [...] | | | | | | [place] [address] | | | | | | [phone] | | | | | | | | +--------+ + + + + documented as of this encounter Results [place] Nuclear Stress Test (Vasodilator) (12/07/2013 7:01 AM PST) + + | Specimen | + + | | + + + + + | Narrative | Performed At | + + + | [facility] | SECO | | Department [address] [place] [address] [facility] | | [ rep [address]] [ rep [facility] | | st zip] Signed | - IMAGING | | | | | Patient Name: MOE GAY | | | Physician: JACKLYN : 1960 Age: 53 Sex: M Unit | | | #: [id number] Exam Date: 12/06/13 Location: | | | [facility] Report #: [id number] Page: | | | %(RAD)RES..mtdd.print.filter("pg") of %(RAD) | | | RES..mtdd.print.filter("tpg") | | | | | | Accession Number: [id number] | | | PERSANTINE SESTAMIBI STRESS TEST, [...] Transcribed Date/Time: 12/07/2013 08:18 | | | Shoemaking Cutter: <<Signature on File>> | | | | | | Daljit Singletary MD [facility] FAS12/07/13 1321 <Electronically signed | | | by Daljit Singletary MD, [facility], [facility], ADELINE, [facility]> Daljit | | | MD Gemini [facility] ADELINE 12/07/13 0701 Shoemaking Cutter: Jessica | | | Epdjwozpixnes36/16/14 0818 PARISA Garcia | | + + + + + + + + | Performing | Address | City/State/Zipcode | Phone Number | | Organization | | | | + + + + + | [facility] | [address] | [place] | [phone] | | [facility] | | [address] | | | - IMAGING | | | | + + + + + documented in this encounter Visit Diagnoses + + | Diagnosis | + + | Other chest pain - Primary | + + documented in this encounter
--- OUTSIDE RECORDS SUMMARY | ~2019-11-12 | XMS | Encounter Summary ---
Demographics + + + | Address | [address] | | | [place] [address] | + + + | Home Phone [...] Providers + +------+ + | Care Shop Tailor Name | Role | Phone | + +------+ + PCP | Unavailable | + +------+ + Encounter Details +--------+ + + + + | Date | Type | Department | Care Team | Description | +--------+ + + + + | 10/19/ | Hospital | [facility] | | | | 1992 | Encounter | [facility] EMERGENCY | | | | | | CENTER [address] | | | | | | [place] | | | | | | [address] | | | | | | [phone] | | | +--------+ + + + [...] Dx); | | | | | [place] [address] | Presence of | | | | | [phone] | permanent cardiac | | | | [...] W | | | | | | [place], | | | | | | [place] [address] | | | | | | [phone] | | | | | | | | +--------+ + + + + documented as of this encounter Visit Diagnoses Not on filedocumented in this encounter"
--- OUTSIDE RECORDS SUMMARY | ~2019-11-12 | XMS | Encounter Summary ---
Demographics + + + | Address | [address] | | | [place] [address] | + + + | Home Phone [...] Providers + +------+ + | Care Rag Inspector Name | Role | Phone | [...] | | | | CENTER [address] | [place], [place] | | | | | [place], [place] | [address] | | | | | [address] | | | | | | [phone] | | | +--------+ + + + [...] new doc you can try over at [facility] documented in this encounter Medications at [...] | | 2019 | Monitor | | [place] [address] | Interrogation | | | | | [place], | (Primary Dx); | | | | | [place] [address] | Presence of | | | | | [phone] | permanent cardiac | | | | [...] | | | | | | [place], | | | | | | [place] [address] | | | | | | [phone] | | | | | | | | +--------+ + + + + documented as of this encounter Visit Diagnoses + + | Diagnosis | + + | Situational stress - Primary Other psychological or physical stress, not elsewhere | | classified | + + documented in this encounter
--- OUTSIDE RECORDS SUMMARY | ~2019-11-12 | XMS | Encounter Summary ---
Demographics + + + | Address | [address] | | | [place] [address] | + + + | Home Phone [...] Providers + +------+ + | Care Game Warden Name | Role | Phone | + [...] Provider Unknown | | | | | [place], [place] | [phone] | | | | | [address] | | | | | | [phone] | | | +--------+ + + + [...] + + + +---------+ + + | [place]-3 Fatty | CAPS, one capsule by | [...] Dx); | | | | | [place] [address] | Presence of | | | | | [phone] | permanent cardiac | | | | [...] | | | | | [place], | | | | | | [place] [address] | | | | | | [phone] | | | | | | | [...]
--- OUTSIDE RECORDS SUMMARY | ~2019-11-12 | XMS | Encounter Summary ---
Demographics + + + | Address | [address] | | | [place] [address] | + + + | Home Phone [...] Providers + +------+ + | Care Gate Person Name | Role | Phone | [...] Refill | | 2011 | | [facility] [place] | DO [address] | | | | | [address] | [place] | | | | | [place] | [address] | | | | | [address] | | | | | | [phone] | | | +--------+--------+ + + + [...] | Monitor | | MD [address] | Interrogation | | | | | [place], | (Primary Dx); | | | | | [place] [address] | Presence of | | | | | [phone] | permanent cardiac | | | | [...] W | | | | | | [place], | | | | | | [place] [address] | | | | | | [phone] | | | | | | | | +--------+ + + + + documented as of this encounter Visit Diagnoses + + | Diagnosis | + + | Hypoglycemia - Primary Hypoglycemia, unspecified | + + documented in this encounter"
--- OUTSIDE RECORDS SUMMARY | ~2019-11-12 | XMS | Encounter Summary ---
Demographics + + + | Address | [address] | | | [place] [address] | + + + | Home Phone [...] Team Providers + +------+ + | Care Investigation Division Sergeant Name | Role | Phone | [...] Referral Question | | 2019 | | [facility] | MD [address] | | | | | PRIMARY CARE [address] | [address] | | | | | [address] | [place] [address] | | | | | [place], [place] | [phone] | | | | | [address] | | | | | | [phone] | | | +--------+ + + + [...] | Interrogation | | | | | [facility] | (Primary Dx); | | | | | [place] [address] | Presence of | | | | | [phone] | permanent cardiac | | | | [...] | | | | | | [place] [address] | | | | | | [phone] | | | | | | | | +--------+ + + + + documented as of this encounter Visit Diagnoses Not on filedocumented in this encounter"
--- OUTSIDE RECORDS SUMMARY | ~2019-11-12 | XMS | Encounter Summary ---
Demographics + + + | Address | [address] | | | [place] [address] | + + + | Home Phone [...] Providers + +------+ + | Care Industrial Rehabilitation Consultant Name | Role | Phone | [...] + + | 08/04/ | Telephone | [facility] | Silvia, | Other (4 week event | | 2017 | | CARDIOLOGY [address] | PARISA [place] [address] | monitor ) | | | | [place], | [place], | | | | | [place] [address] | [place] [address] | | | | | [phone] | | | | | | | [...] 2019 | Monitor | | MD Sim [facility] [place] | Interrogation | | | | | [place], | (Primary Dx); | | | | | [place] [address] | Presence of | | | | | [phone] | permanent cardiac | | | | [...] W | | | | | | [place], | | | | | | [place] [address] | | | | | | [phone] | | | | | | | | +--------+ + + + + documented as of this encounter Visit Diagnoses Not on filedocumented in this encounter"
--- OUTSIDE RECORDS SUMMARY | ~2019-11-12 | XMS | Encounter Summary ---
Demographics + + + | Address | [address] | | | [place] [address] | + + + | Home Phone [...] Providers + +------+ + | Care Web Press Operator Assistant Name | Role | Phone [...] | MED CTR EXTER[facility] | MD [address] | | | | | IMAGING | Jay [place] | | | | | [phone] | [place] [address] | | +--------+ + + + + [...] Dx); | | | | | [place] [address] | Presence of | | | | | [phone] | permanent cardiac | | | | [...] W | | | | | | [place], | | | | | | [place] [address] | | | | | | [phone] | | | | | | | [...]
--- OUTSIDE RECORDS SUMMARY | ~2019-11-12 | XMS | Encounter Summary ---
Demographics + + + | Address | [address] | | | [place] [address] | + + + | Home Phone [...] + +------+ + | Care Street Light Servicer Helper Name | Role | Phone | [...] + + | 11/03/ | Refill | [facility] | Kirk French | Medication Refill | | 2019 | | [facility] | MD [address] | | | | | PRIMARY CARE [address] | [address] | | | | | [address] | [place] [address] | | | | | [place], [place] | [phone] | | | | | [address] | | | | | | [phone] | | | +--------+--------+ + + + [...] | | | | | [address] [place], | (Primary Dx); | | | | | [place] [address] | Presence of | | | | | [phone] | permanent cardiac | | | | [...] | | | | | | [place] [address] | | | | | | [phone] | | | | | | | | +--------+ + + + + documented as of this encounter Visit Diagnoses Not on filedocumented in this encounter"
--- OUTSIDE RECORDS SUMMARY | ~2019-11-12 | XMS | Encounter Summary ---
Demographics + + + | Address | [address] | | | [place] [address] | + + + | Home Phone [...] + +------+ + | Care Human Service Technician Name | Role | Phone [...] + + | 06/26/ | Office | [facility] | Geri Angel, | Coronary artery | | 2015 | Visit | CARDIOLOGY [address] | MATHEMATICS TECHNICIAN [address] | disease involving | | | | [place], | [place] [facility], [place] | [place] coronary | | | | [place] [address] | [address] | artery without | | | | [phone] | | angina pectoris | | | [...] not occur with exertion. He went to [facility] at the end of for his [...] it. He is planning to travel to [facility] in the ve [place] near future for up to a month due to his shzdka-cz-ppz having a significant stroke there MEDICAL, SURGICAL, [...] Preventative health care Coronary artery disease involving [place] coronary artery without angina pectoris Cannabis abuse, [...] by mouth Daily. [address] [facility] Natural Products (OSTEO BI-FLEX/5-LOXIN ADVANCED PO) Take [...] 3rd dose, call 911 25 tablet 11 [place]-3 Fatty Acids (SALMON OIL-1000 PO) CAPS, one [...] Daily. to reduce urinary frequenc y Lot #[id number], exp 07/2016 21 capsule 0 Specialty Vitamins [...] INTERROGATION REVIEWED BY: PARISA Velazquez DEVICE IDENTIFICATION: Tribunal Member: Ciklum. Leads: Right atrium and right ventricle (dual [...] to go back in 3 days to [place] for an attempt of ablation under general [...] this chart may have been created with [employer] voice recognition software. Occasi onal wrong-word or [...] | 2018 | Monitor | | [address] [place] | Interrogation | | | | | [place], | (Primary Dx); | | | | | [place] [address] | Presence of | | | | | [phone] | permanent cardiac | | | | [...] | | | | | | [place], | | | | | | [place] [address] | | | | | | [phone] | | | | | | | [...] PARISA Velazquez DEVICE IDENTIFICATION: | | | Tribunal Member: Plan B Acqusitionstronic. Leads: Right atrium and right | | [...] + + | Coronary artery disease involving [place] coronary artery without angina pectoris - | | Primary | + + | SINUS BRADYCARDIA Sinoatrial node dysfunction | + + | Essential hypertension Unspecified essential hypertension | + + | Hyperlipidemia Other and unspecified hyperlipidemia | + + | Symptomatic PVCs Other premature beats | + + documented in this encounter
--- OUTSIDE RECORDS SUMMARY | ~2019-11-12 | XMS | Encounter Summary ---
Demographics + + + | Address | [address] | | | [place] [address] | + + + | Home Phone [...] Providers + +------+ + | Care Human Resource Consultant Name | Role | Phone | [...] | CARDIOLOGY [address] | [address] [place] | Interrogation | | | | [place], | [place], | (Primary Dx); | | | | [place] [address] | [place] [address] | Presence of | | | | [phone] | [phone] | permanent cardiac | | | | [...] Dx); | | | | | [place] [address] | Presence of | | | | | [phone] | permanent cardiac | | | | [...] | | | | | | [place], | | | | | | [place] [address] | | | | | | [phone] | | | | | | | [...]
--- OUTSIDE RECORDS SUMMARY | ~2019-11-12 | XMS | Encounter Summary ---
Demographics + + + | Address | [address] | | | [place] [address] | + + + | Home Phone [...] Providers + +------+ + | Care Meter Record Clerk Name | Role | Phone [...] + + | 08/17/ | Office | [facility] | Michael Amanda, | Testosterone | | 2012 | Visit | [facility] [place] | DO [address] | deficiency (Primary | | | | [address] | [place] | Dx); Hypoglycemia; | | | | [place] | [address] | Herpes | | | | [address] | | | | | | [phone] | | | +--------+---------+ + + + [...] lowering his testosterone levels. He seen at [facility]. He was prescribed OxyContin and Dilaudid. The [...] erectile dy sfunction. He was seen at [facility] yesterday and they prescribed him testostero ne cypionate injections. He's not sure when they wanted him to come back for labs. He has a followup appointment with [facility] in one month. 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 This note is dictated using [employer] voice recognition software. This note was dictated [...] Interrogation | | | | | [place], | (Primary Dx); | | | | | [place] [address] | Presence of | | | | | [phone] | permanent cardiac | | | | [...] W | | | | | | [place], | | | | | | [place] [address] | | | | | | [phone] | | | | | | | [...]
--- OUTSIDE RECORDS SUMMARY | ~2019-11-12 | XMS | Encounter Summary ---
Demographics + + + | Address | [address] | | | [place] [address] | + + + | Home Phone [...] Team Providers + +------+ + | Care Knot Borer Name | Role | Phone | + +------+ + | Michael Amanda DO | PCP | | + +------+ + Encounter Details +--------+ + + + + | Date | Type | Department | Care Team | Description | +--------+ + + + + | 01/31/ | Hospital | [facility] | Adrian Gutierrez MD | | | 2012 | Encounter | [facility] | [address] | | | | | EMERGENCY CENTER | [place], [place] | | | | | [address] | [address] | | | | | [place] | [phone] | | | | | [address] | | | | | | [phone] | | | +--------+ + + + [...] + + + +---------+ + + | [place]-3 Fatty | CAPS, one capsule by | [...] | | | | [place] [address] | Presence of | | | | | [phone] | permanent cardiac | | | | [...] W | | | | | | [place], | | | | | | [place] [address] | | | | | | [phone] | | | | | | | [...] + + + | Exam Performed Location: [facility] [place] [facility] | MISCELANIOUS | | CHEST CLINICAL [...] | an acute cardiopulmonary process. S: SQ ([id number]) Signed by: | | | JAYNE SPEAR MD | | + + + + + | Procedure Note | + + | Kevin, Rad Conversion - 09/13/2013 10:25 PM PDT Exam Performed [facility] INFORMATION:Shortness of | | breath.COMPARISON:None.FINDINGS:There is a left subclavian dual lead cardiac pacer. The | | heart sizeand mediastinal contours are normal. The pulmonary vasculature isnormal. No | | focal airspace opacities, pleural effusions, orpneumothorax. Cervical fusion hardware | | is noted. No acute osseousfindings.IMPRESSION:No evidence of an acute cardiopulmonary | | process.S: SQ ([id number]) Signed by: JAYNE SPEAR MD | |COMPARISON: [...] | | | | | |S: SQ ([id number]) Signed by: JAYNE SPEAR MD | + + + +---------+ + + | Performing | Address | City/State/Zipcode | Phone Number | | Organization | | | | + +---------+ + + | MISCELLANEOUS LAB | | | [phone] | + +---------+ + + | MISCELANIOUS LAB | | | [phone] | + +---------+ + + Troponin I [...] + + | [facility] | [address] | [place] [address] | | | [facility] | [...] + + | [facility] | [address] | [place] [address] | | | [facility] | [...] + + | [facility] | [address] | [place] [address] | | | HEART [facility] | | | | | LABORATORY | | | | + + + + + | [facility] | | | | | HEART [facility] | | | | [...] + + | [facility] | [address] | [place] [address] | | | [facility] | | | | | LABORATORY | | | | + + + + + | [facility] | | | | | [facility] | | | | | [...] + + | Glucose | 154 (H)Comment: Micronesian | 65 - 99 mg/dL | [facility] | | | | Diabetes Association | [...] + + | [facility] | [address] | [place] [address] | | | [facility] | | | | | LABORATORY | | | | + + + + + | [facility] | | | | | [facility] | | | | | LABORATORY | | | | + + + + + documented in this encounter Visit Diagnoses Not on filedocumented in this encounter"
--- OUTSIDE RECORDS SUMMARY | ~2019-11-12 | XMS | Encounter Summary ---
Demographics + + + | Address | [address] | | | [place] [address] | + + + | Home Phone [...] Team Providers + +------+ + | Care Strip Cutting Machine Operator Name | Role | [...] | [address] | | | | | [address] | | | | | | [phone] | | | +--------+--------+ + + + [...] | 2018 | Monitor | | [address] | Interrogation | | | | | [place], | (Primary Dx); | | | | | [place] [address] | Presence of | | | | | [phone] | permanent cardiac | | | | [...] | | | | | | [place] [address] | | | | | | [phone] | | | | | | | | +--------+ + + + + documented as of this encounter Visit Diagnoses Not on filedocumented in this encounter"
--- OUTSIDE RECORDS SUMMARY | ~2019-11-12 | XMS | Encounter Summary ---
Demographics + + + | Address | [address] | | | [place] [address] | + + + | Home Phone [...] Providers + +------+ + | Care Print Shop Stenographer Name | Role | Phone | + [...] | 06/18/ | Emergency | [facility] | Dom Graham, | Cervical pain (neck) | | 2013 | | MED CTR EMERGENCY | MD [address] | (Primary Dx); | | | | CENTER [address] | [place] | Paresthesia and pain | | | | [place], [place] | [address] | of both upper | | | | [address] | | extremities | | | | [phone] | | | +--------+ + + + [...] + + + +---------+ + + | [place]-3 Fatty | CAPS, one capsule by | [...] | | 2019 | Monitor | | [place] [address] [facility] | Interrogation | | | | | [place], | (Primary Dx); | | | | | [place] [address] | Presence of | | | | | [phone] | permanent cardiac | | | | [...] W | | | | | | [place], | | | | | | [place] [address] | | | | | | [phone] | | | | | | | [...] + | MISCELLANEOUS LAB | | | [phone] | + +---------+ + + | MISCELANIOUS LAB | | | [phone] | + +---------+ + + documented in this encounter Visit Diagnoses + + | Diagnosis | + + | Cervical pain (neck) - Primary Cervicalgia | + + | Paresthesia and pain of both upper extremities Disturbance of skin sensation | + + documented in this encounter
--- OUTSIDE RECORDS SUMMARY | ~2019-11-12 | XMS | Encounter Summary ---
Demographics + + + | Address | [address] | | | [place] [address] | + + + | Home Phone [...] Providers + +------+ + | Care Biomedical Service Engineer Name | Role | Phone [...] | | | pain | [address] | [address] | | | | | Procedures | [place] | [place], | | | | | [place] Nuclear | [place] | [place] | | | | | Stress Test | [address] | [address] | | | | | (Vasodilator | Phone: | Phone: | | | | | ) CHG | [phone] | [phone] | | | | | MYOCARDIAL | Fax: | Fax: | | | | | SPECT | [phone] | [phone] | | | | | MULTIPLE | | | | | | | STUDIES | | | +--------+--------+ + + + + Encounter Details +--------+ + + + + | Date | Type | Department | Care Team | Description | +--------+ + + + + | 12/06/ | Hospital | [facility] | Geri Angel, | Other chest pain | | 2013 | Encounter | MED CTR XRAY [address] | CLIENT SOLUTIONS MANAGER [address] | | | | | [address] [place] | [place] | | | | | [place] [address] | [address] | | | | | [phone] | | | +--------+ + + + [...] + + + +---------+ + + | [place]-3 Fatty | CAPS, one capsule by | [...] 2019 | Monitor | | MD Sim [place] | Interrogation | | | | | [place] [place], | (Primary Dx); | | | | | [place] [address] | Presence of | | | | | [phone] | permanent cardiac | | | | [...] | | | | | | [place] [address] | | | | | | [phone] | | | | | | | [...] Performed At | + + + | [facility] | [place] | | Department [address] [facility] | [facility] | | [ rep ct street[address]] [ rep [facility] | | st zip] Signed | - IMAGING | | | | | Patient Name: MOE GAY | | | Physician: JACKLYN : 1960 Age: 53 Sex: M Unit | | | #: [id number] Exam Date: 12/06/13 Location: | | | [facility] Report #: [id number] Page: | | | %(RAD)RES..mtdd.print.filter("pg") of %(RAD) | | | RES..mtdd.print.filter("tpg") | | | | | | Accession Number: [id number] | | | PERSANTINE SESTAMIBI STRESS TEST, [...] Transcribed Date/Time: 12/07/2013 08:18 | | | Dry Starch Supervisor: <<Signature on File>> | | | | | | Daljit Singletary MD [facility] FASE12/07/13 1321 <Electronically signed | | | by Daljit Singletary MD, FACC, FACP, FASE, FASNC> Daljit | | | MD CLEOPATRA Singletary 12/07/13 0701 Dry Starch Supervisor: Jessica | | | Kbxzjrodxaqkq23/16/14 0818 PARISA Garcia | | + + + + + + + + | Performing | Address | City[facility] | Phone Number | | Organization | | | | + + + + + | [address] | [address] | [place] | [phone] | | [facility] | | [address] | | | - IMAGING | | | | + + + + + documented in this encounter Visit Diagnoses + + | Diagnosis | + + | Other chest pain | + + documented in this encounter
--- OUTSIDE RECORDS SUMMARY | ~2019-11-12 | XMS | Encounter Summary ---
Demographics + + + | Address | [address] | | | [place] [address] | + + + | Home Phone [...] Providers + +------+ + | Care Company Driver Name | Role | Phone | [...] + + | 08/31/ | Refill | [facility] | Kirk French | Medication Refill | | 2018 | | [facility] | MD Bre[address] | | | | | PRIMARY CARE [address] | [address] | | | | | [address] | [place] [address] | | | | | [place], [place] | [phone] | | | | | [address] | | | | | | [phone] | | | +--------+--------+ + + + [...] | | | | | [place] [place], | (Primary Dx); | | | | | [place] [address] | Presence of | | | | | [phone] | permanent cardiac | | | | [...] | | | | | | [place] [address] | | | | | | [phone] | | | | | | | | +--------+ + + + + documented as of this encounter Visit Diagnoses Not on filedocumented in this encounter"
--- OUTSIDE RECORDS SUMMARY | ~2019-11-12 | XMS | Encounter Summary ---
Demographics + + + | Address | [address] | | | [place] [address] | + + + | Home Phone [...] Team Providers + +------+ + | Care Veterinary Anatomist Name | Role | Phone | + +------+ + | Michael Amanda DO | PCP | | + +------+ + Reason for Visit + + + | Reason | Comments | + + + | Follow-up | One month with [facility] 12/25/13 | + + + | Chest Pain | | + + + Encounter Details +--------+---------+ + + + | Date | Type | Department | Care Team | Description | +--------+---------+ + + + | 01/29/ | Office | [facility] | Silvia, | Other chest pain | | 2013 | Visit | CARDIOLOGY [address] | PARISA [address] | (Primary Dx); Chest | | | | [place], | [place], | pain; Coronary | | | | [place] [address] | [place] [address] | artery disease; | | | | [phone] | [phone] | Hyperlipidemia; | | | | | [...] f rom the original. PATIENT NAME: Moe aSnchez : 1960: AGE: 53 y.o. PRIMARY CARE: [...] last week to the emergency room at [facility] with a baljit st pain episode. [...] needed for Chest pain. 25 tablet 12 [place]-3 Fatty Acids (SALMON OIL-1000 PO) CAPS, one [...] was seen on the emergency room at [place] on 01/26/2014, he was ruled out A [...] pain. He is in class II of [place] [employer] Ass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 There are no [...] to go back in 3 days to [place] for an attempt of ablation under [...] symptoms. He is in class II of [place] Heart Ass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 There are no [...] made to ensure accuracy; however, inadvertent computerized swing ride operator errors may be pre sent. Electronically [...] Dx); | | | | | [place] [address] | Presence of | | | | | [phone] | permanent cardiac | | | | [...] | | | | | | [place], | | | | | | [place] [address] | | | | | | [phone] | | | | | | | [...] of unspecified type of vessel, | | solomon or graft | + + | Hyperlipidemia Other and unspecified hyperlipidemia | + + | Symptomatic PVCs Other premature beats | + + | Hypertension Unspecified essential hypertension | + + documented in this encounter
--- OUTSIDE RECORDS SUMMARY | ~2019-11-12 | XMS | Encounter Summary ---
Demographics + + + | Address | [address] | | | [place] [address] | + + + | Home Phone [...] + +------+ + | Care Filter Press Tender Head Name | Role | Phone [...] 2012 | | CARDIOLOGY [address] | PLANT ACCOUNTANT [address] | | | | | [place], | [place] [facility], [place] | | | | | [place] [address] | [address] | | | | | [phone] | | | +--------+ + + + [...] | 2018 | Monitor | | [address] | Interrogation | | | | | [place], | (Primary Dx); | | | | | [place] [address] | Presence of | | | | | [phone] | permanent cardiac | | | | [...] W | | | | | | [place], | | | | | | [place] [address] | | | | | | [phone] | | | | | | | | +--------+ + + + + documented as of this encounter Visit Diagnoses Not on filedocumented in this encounter"
--- OUTSIDE RECORDS SUMMARY | ~2019-11-12 | XMS | Encounter Summary ---
Demographics + + + | Address | [address] | | | [place] [address] | + + + | Home Phone [...] Providers + +------+ + | Care Sales Engineer Account Manager Name | Role | Phone [...] + | 02/16/ | Telephone | [facility] | Silvia, | Other (concerned | | 2012 | | CARDIOLOGY [address] | [address] | about palpitations) | | | | [place], | [place], | | | | | [place] [address] | [place] [address] | | | | | [phone] | [phone] | | | | | | | [...] Dx); | | | | | [place] [address] | Presence of | | | | | [phone] | permanent cardiac | | | | [...] | | | | | | [place], | | | | | | [place] [address] | | | | | | [phone] | | | | | | | | +--------+ + + + + documented as of this encounter Visit Diagnoses Not on filedocumented in this encounter"
--- OUTSIDE RECORDS SUMMARY | ~2019-11-12 | XMS | Encounter Summary ---
Demographics + + + | Address | [address] | | | [place] [address] | + + + | Home Phone [...] + +------+ + | Care Senior It Recruiter Name | Role | Phone | + +------+ + | Kirk French MD | PCP | | + +------+ + Encounter Details +--------+---------+ + + + | Date | Type | Department | Care Team | Description | +--------+---------+ + + + | 09/26/ | Office | [facility] | Kirk French | Weight loss (Primary | | 2018 | Visit | [facility] | MD Bre[address] | Dx); Bipolar | | | | PRIMARY CARE [address] | affective disorder, | | | | [address] | [place] [address] | remission status | | | | [place], [place] | [phone] | unspecified (HCC); | | | | [address] | | Mixed anxiety | | | | [phone] | | depressive disorder; | | | [...] CV LHC; Surgeon: Daljit Singletary MD; Location: [facility] CV LAB CARDIAC CATHERIZATION N/A 01/25/2019 Procedure: CV Cor Angio; Surgeon: Daljit Singletary MD; Location: [facility] CV LAB COLONOSCOPY N/A 12/24/2017 Procedure: COLONOSCOPY; Surgeon: Emmanuel Daniel MD; Location: [facility] MEDICAL PROCEDURE UNIT COLONOSCOPY N/A 01/05/2019 Procedure: COLONOSCOPY; Surgeon: Emmanuel Daniel MD; Location: [facility] MEDICAL PROCEDURE UNIT EGD 12/24/2017 [...] Procedure: EGD; Surgeon: Emmanuel Daniel MD; Location: [facility] MEDICAL PROCEDURE UNIT UPPER GASTROINTESTINAL ENDOSCOPY N/A 01/05/2019 Procedure: EGD; Surgeon: Emmanuel Daniel MD; Location: [facility] MEDICAL PROCEDURE UNIT URETEROSCOPY Left 04/13/2019 Procedure: Cystoscopy, Left ureteroscopy with laser lithotripsy, Left ureteral stent place ment; Surgeon: Matthew Uriarte MD; Location: [facility] MAIN OR VASECTOMY Social History Socioeconomic [...] ONE TABLET UNDER THE TONGUE EVERY 5 GA NUTES NEEDED FOR CHEST PAIN 250 tablet 0 [place]-3 Fatty Acids (SALMON OIL-1000 PO) CAPS, one capsule by mouth daily twice daily ondansetron (ZOFRAN ODT) 4 mg disintegrating tablet Take 4 mg by mouth every 8 hours as needed for Nausea. ONE TOUCH DELICA LANCETS [facility] [...] PLT 169 06/02/2019 No results found for: EPMCOMHD07 No results found for: FOLATE No results [...] Co multiple ER visits Going again to [facility] tomorrow Already followed by [...] dollars a month. We will defer to [facility], perhaps to have some [...] Interrogation | | | | | [place], | (Primary Dx); | | | | | [place] [address] | Presence of | | | | | [phone] | permanent cardiac | | | | [...] | | | | | | [place], | | | | | | [place] [address] | | | | | | [phone] | | | | | | | [...]
--- OUTSIDE RECORDS SUMMARY | ~2019-11-12 | XMS | Encounter Summary ---
Demographics + + + | Address | [address] | | | [place] [address] | + + + | Home Phone [...] Providers + +------+ + | Care Travel Coordinator Name | Role | Phone | [...] W | | | | | [place], | [place], | | | | | [place] [address] | [place] [address] | | | | | [phone] | [phone] | | | | | | | [...] | 2018 | Monitor | | [address] [place] | Interrogation | | | | | [place], | (Primary Dx); | | | | | [place] [address] | Presence of | | | | | [phone] | permanent cardiac | | | | [...] | | | | | | [place], | | | | | | [place] [address] | | | | | | [phone] | | | | | | | [...] [address] | [place] | [phone] | | [facility] | | [address] | | | - LABORATORY | | [...]
--- OUTSIDE RECORDS SUMMARY | ~2019-11-12 | XMS | Encounter Summary ---
Demographics + + + | Address | [address] | | | [place] [address] | + + + | Home Phone [...] Providers + +------+ + | Care Supplier Quality Engineer Name | Role | Phone [...] | CARDIOLOGY [address] | [address] | (Primary Dx); | | | | [place], | [place], | Tachycardia; | | | | [place] [address] | [place] [address] | Coronary artery | | | | [phone] | [phone] | disease involving | | | | | | hoopa coronary | | | | | | artery of hoopa | | | | | | heart [...] Dx); | | | | | [place] [address] | Presence of | | | | | [phone] | permanent cardiac | | | | [...] | | | | | | [place] [address] | | | | | | [phone] | | | | | | | [...] involving | | | | | | hoopa coronary | | | | | | artery of hoopa | | | | | | heart [...] DALJIT | | | | | | ([id number]) on 06/29/2018 | | | | | [...] + + | Coronary artery disease involving hoopa coronary artery of hoopa heart without | | angina pectoris | + + | Hypertension, unspecified type | + + documented in this encounter"
--- OUTSIDE RECORDS SUMMARY | ~2019-11-12 | XMS | Encounter Summary ---
Demographics + + + | Address | [address] | | | [place] [address] | + + + | Home Phone [...] Providers + +------+ + | Care Executive Administrative Assistant Name | Role | Phone | + +------+ + | Kirk French MD | PCP | | + +------+ + Encounter Details +--------+ + + + + | Date | Type | Department | Care Team | Description | +--------+ + + + + | 04/07/ | Hospital | [facility] | Pia Akhtar | Spinal stenosis of | | 2016 | Encounter | MED CTR XRAY [address] | MD Sof[address] | lumbar region | | | | [place] | [address] | | | | | [place] [address] | [place] [address] | | | | | [phone] | [phone] | | | | | | | [...] + + +---------+ + + | [place]-3 Fatty | CAPS, one capsule by | [...] Dx); | | | | | [place] [address] | Presence of | | | | | [phone] | permanent cardiac | | | | [...] | | | | | | [place] [id number] | | | | | | [phone] | | | | | | | [...]
--- OUTSIDE RECORDS SUMMARY | ~2019-11-12 | XMS | Encounter Summary ---
Demographics + + + | Address | [address] | | | [place] [address] | + + + | Home Phone [...] Team Providers + +------+ + | Care Feather Edger Name | Role | Phone | [...] type ER | [address] | [address] | | | | | FUP | [place] | [place], | | | | | Procedures | [place], [place] | [place] [address] | | | | | FUP - SUW & | [address] | Phone: | | | | | EVM PT, LAST | Phone: | [phone] | | | | | SEEN | [phone] | Fax: | | | | | 08-24-18 | Fax: | [phone] | | | | | | [phone] | | +--------+ + + + + + Reason for Visit + + + | Reason | Comments | + + + | Chest Pain | | + + + Encounter Details +--------+ + + + + | Date | Type | Department | Care Team | Description | +--------+ + + + + | 01/02/ | Emergency | [facility] | JalenFranki mcnair | Chest pain, | | 2019 | | [facility] EM[facility]Y | MD Martell [address] | unspecified type | | | | CENTER [address] | [address] [place] | (Primary Dx) | | | | [place], [place] | [place] [address] | | | | | [address] | [phone] | | | | | [phone] | | | +--------+ + + + [...] through Care Everywhere.Chest Pain, Unc ertain Cause (Armenian)documented in this encounter Medications at Time [...] + + +---------+ + + | [place]-3 Fatty | CAPS, one capsule by | [...] Dx); | | | | | [place] [address] | Presence of | | | | | [phone] | permanent cardiac | | | | [...] W | | | | | | [place], | | | | | | [place] [address] | | | | | | [phone] | | | | | | | [...] | | | | HIREN WINKLER, ANGELA ([id number]) | | | | | | on [...] [address] | [place] | [phone] | | [facility] | | [address] | | | - LABORATORY | | [...] | | queenie | | | [facility] | | | Screen, | | | [...] [address] | [place] | [phone] | | [facility] | | [address] | | | - LABORATORY | | [...] - 1.030 | [facility] | | | Alexander | | | [facility] | | [...] [address] | [place] | [phone] | | [facility] | | [address] | | | - LABORATORY | | [...] + | [facility] | [address] | [place], [place] | [phone] | | [facility] | | [address] | | | - LABORATORY | | [...] [address] | [place] | [phone] | | [facility] | | [address] | | | - LABORATORY | | [...] [address] | [place] | [phone] | | [facility] | | [address] | | | - LABORATORY | | [...] 13 | 7 - 18 mg/dL | [facility] | | | | | | [facility] | | | | | | MEDICAL | | | | | | CENTER - | | | | | | LABORATORY | | + + + + + + | Creatinine | 0.96 | 0.60 - 1.30 | [facility] | | | | | mg/dL | [facility] | | | | | | MEDICAL | | | | | | CENTER - | | | | | | LABORATORY | | + + + + + + | eGFR if not | >60Comment: GLOMERULAR | >=60 | [facility] | | | | FILTRATION | mL/min/1.73m2 | [facility] | | | [place] | RATE,ESTIMATED | | MEDICAL | | | | mL/min/1.06l6Yxld than | | CENTER - | | [...] [address] | [place] | [phone] | | [facility] | | [address] | | | - LABORATORY | | [...] + | [address] | [address] | [place] | [phone] | | [facility] | | [address] | | | - LABORATORY | | [...] | | | | ANGELA [place]IAG[place] MD ([id number]) | | | | | | on [...]
--- OUTSIDE RECORDS SUMMARY | ~2019-11-12 | XMS | Encounter Summary ---
Demographics + + + | Address | [address] | | | [place] [address] | + + + | Home Phone [...] Providers + +------+ + | Care Creative Engagement Director Name | Role | Phone | [...] Eva [address] | | | | | [place], [place] | [address] | | | | | [address] | [place] [address] | | | | | [phone] | [phone] | | | | | | | [...] | 2018 | Monitor | | [address] | Interrogation | | | | | [place], | (Primary Dx); | | | | | [place] [address] | Presence of | | | | | [phone] | permanent cardiac | | | | [...] W | | | | | | [place], | | | | | | [place] [address] | | | | | | [phone] | | | | | | | [...] | | Basophils | performed at [facility];[address] | 10*3/uL | LAB | | | | [address] | | | | | | Blvd;[place] [address] | | | | + + + [...] | | | | | Blvd;[place] [address] | | | | + + + [...] | | | | | at [facility];[address] [facility] | | | | | | [facility];[place] | | | | | | [address] | | | | + + + [...]
--- OUTSIDE RECORDS SUMMARY | ~2019-11-12 | XMS | Encounter Summary ---
Demographics + + + | Address | [address] | | | [place] [address] | + + + | Home Phone [...] Providers + +------+ + | Care Telephone Interviewer Name | Role | Phone | [...] visit | CARDIOLOGY [address] | [address] [place] | reprogramming/check | | | | [place], | [place], | DO NOT DELETE | | | | [place] [address] | [place] [address] | (Primary Dx); | | | | [phone] | [phone] | Sinoatrial node | | | | [...] | MD Sim [facility] | Interrogation | | | | | [place], | (Primary Dx); | | | | | [place] [address] | Presence of | | | | | [phone] | permanent cardiac | | | | [...] | | | | | | [place] [address] | | | | | | [phone] | | | | | | | [...]
--- OUTSIDE RECORDS SUMMARY | ~2019-11-12 | XMS | Encounter Summary ---
Demographics + + + | Address | [address] | | | [place] [address] | + + + | Home Phone [...] Providers + +------+ + | Care Outside Residential Sales Professional Name | Role | Phone [...] Office | [facility] | Matthew Uriarte | Kidney stones | | 2019 | Visit | [address] | MD Tawanna [address] | (Primary Dx) | | | | [place], [place] | [place], [place] | | | | | [address] | [address] | | | | | [phone] | | | +--------+---------+ + + + [...] [employer] Peptic ulcer disease Premature ventricular contraction [facility] health care 06/26/2013 LAST [...] CV LHC; Surgeon: Daljit Singletary MD; Location: [facility] CV LAB CARDIAC CATHERIZATION N/A 01/25/2019 Procedure: CV Cor Angio; Surgeon: Daljit Singletary MD; Location: [facility] CV LAB COLONOSCOPY N/A 12/24/2017 Procedure: COLONOSCOPY; Surgeon: Emmanuel Daniel MD; Location: [facility] MEDICAL PROCEDURE UNIT COLONOSCOPY N/A 01/05/2019 Procedure: COLONOSCOPY; Surgeon: Emmanuel Daniel MD; Location: [facility] MEDICAL PROCEDURE UNIT EGD 12/24/2017 [...] Procedure: EGD; Surgeon: Emmanuel Daniel MD; Location: [facility] MEDICAL PROCEDURE UNIT UPPER GASTROINTESTINAL ENDOSCOPY N/A 01/05/2019 Procedure: EGD; Surgeon: Emmanuel Daniel MD; Location: [facility] MEDICAL PROCEDURE UNIT URETEROSCOPY Left 04/13/2019 Procedure: Cystoscopy, Left ureteroscopy with laser lithotripsy, Left ureteral stent place ment; Surgeon: Matthew Uriarte MD; Location: [facility] MAIN OR VASECTOMY Family History: [...] 911, Disp: 100 ta blet, Rfl: 3 [place]-3 Fatty Acids (SALMON OIL-1000 PO), CAPS, one [...] pH, Urine 8.0 5.0 - 8.0 Specific [place] 1.008 1.001 - 1.030 Protein, Urine Negative [...] have not thoroughly proofread this note, and mother baby rn errors are very likely to occur. CC: Kirk French MD documented in this encounter Plan of Treatment +--------+ + + + + | Date | Type | Specialty | Care Team | Description | +--------+ + + + + | 11/20/ | Implant | Cardiology | Daljit Singletary, | Remote Device | | 2018 | Monitor | | [address] | Interrogation | | | | | [place], | (Primary Dx); | | | | | [place] [address] | Presence of | | | | | [phone] | permanent cardiac | | | | [...] | | | | | | [place] [address] | | | | | | [phone] | | | | | | | [...]
--- OUTSIDE RECORDS SUMMARY | ~2019-11-12 | XMS | Encounter Summary ---
Demographics + + + | Address | [address] | | | [place] [address] | + + + | Home Phone [...] Providers + +------+ + | Care Mattress Finisher Name | Role | Phone | [...] CARDIOLOGY [address] | MD [address] | Interrogation | | | | [place], | [place], | (Primary Dx); | | | | [place] [address] | [place] [address] | Pacemaker; | | | | [phone] | [phone] | Sinoatrial node | | | | [...] | | | | [place] [address] | Presence of | | | | | [phone] | permanent cardiac | | | | [...] W | | | | | | [place], | | | | | | [place] [address] | | | | | | [phone] | | | | | | | [...]
--- OUTSIDE RECORDS SUMMARY | ~2019-11-12 | XMS | Encounter Summary ---
Demographics + + + | Address | [address] | | | [place] [address] | + + + | Home Phone [...] Providers + +------+ + | Care Assistant Casino Shift Manager Name | Role | Phone [...] | initial encounter; | | | | [place], [place] | | Elevated blood | | | | [address] | | pressure reading; | | | | [phone] | | Numbness and | | | [...] + + + +---------+ + + | [place]-3 Fatty | CAPS, one capsule by | [...] Dx); | | | | | [place] [address] | Presence of | | | | | [phone] | permanent cardiac | | | | [...] | | | | | | [place], | | | | | | [place] [address] | | | | | | [phone] | | | | | | | [...]
--- OUTSIDE RECORDS SUMMARY | ~2019-11-12 | XMS | Encounter Summary ---
Demographics + + + | Address | [address] | | | [place] [address] | + + + | Home Phone [...] Providers + +------+ + | Care Numerical Tool Programmer Name | Role | Phone | [...] | CARDIOLOGY [address] | [address] | Interrogation | | | | [place], | [place], | (Primary Dx); | | | | [place] [address] | [place] [address] | Pacemaker; | | | | [phone] | [phone] | Sinoatrial node | | | | [...] | | | | | [address] [place], | (Primary Dx); | | | | | [place] [address] | Presence of | | | | | [phone] | permanent cardiac | | | | [...] | | | | | | [place], | | | | | | [place] [address] | | | | | | [phone] | | | | | | | [...] PDF scanned into | | | [facility] for remote interrogation results. Data [...]
--- OUTSIDE RECORDS SUMMARY | ~2019-11-12 | XMS | Encounter Summary ---
Demographics + + + | Address | [address] | | | [place] [address] | + + + | Home Phone [...] Team Providers + +------+ + | Care Mailroom Coordinator Name | Role | Phone | [...] + | 10/23/ | Office | [facility] | Silvia, | CAD (coronary artery | | 2013 | Visit | CARDIOLOGY [address] | [address] | disease) (Primary | | | | [place], | [place], | Dx); Other chest | | | | [place] [address] | [place] [address] | pain; Chest pain; | | | | [phone] | [phone] | Coronary artery | | | | [...] Date: October 23, 2014 : 1960 Line Lead: Kailey Pruitt RN Device Leadership Program Associate: appEatIT Sense (mV) Impedance (?) Capture (V) Capture (ms) A Lead 2.80-4.00 407 1.500 0.09 RV Lead 22.40-31.36 519 2.000 0.09 LV Lead Battery Impedance (?): 658 Battery Voltage (V): 2.79 ME Interval (ms): 155 AR Interval (ms): 240 VA Conduction: Mode Switch Events: 1 % of time: <0.1 -RENEWABLE ENERGY TRADER: <0.1% AP-RENEWABLE ENERGY TRADER: <0.1% -VS: 13.8% AP-VS: 86.1% RENEWABLE ENERGY TRADER: Magnetic Rate: 85 LINDA: 65 LEAH: Current [...] Pruitt RN 10/23/2014 15:22 ames Janeen, SUPERVISOR [employer]INS[employer]ING [employer]ICATION - 10/23/2014 2:22 PM PST PATIENT NAME: [...] needed for Chest pain. 25 tablet 12 [place]-3 Fatty Acids (SALMON OIL-1000 PO) CAPS, one [...] He is i n class I-II of [place] Heart Ass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 There are no [...] to go back in 3 days to [place] for an attempt of ablation under general [...] dizziness. He is in class I-II of [place] Heart Ass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 There are n [...] this chart may have been created with sifonr voice recognition software. Occasi onal wrong-word or [...] 2019 | Monitor | | [address] | Interrogation | | | | | [place], | (Primary Dx); | | | | | [place] [address] | Presence of | | | | | [phone] | permanent cardiac | | | | [...] W | | | | | | [place], | | | | | | [place] [address] | | | | | | [phone] | | | | | | | [...] 2014 : | | | 1960 Line Lead: Kailey Pruitt RN Device Leadership Program Associate: | | | Medtronic Sense (mV) Impedance (?) Capture (V) Capture (ms) A | | | Lead 2.80-4.00 407 1.500 0.09 RV Lead 22.40-31.36 519 2.000 0.09 | | | LV Lead Battery Impedance (?): 658 Battery Voltage (V): 2.79 | | | ME Interval (ms): 155 AR Interval (ms): 240 VA Conduction: Mode | | | Switch Events: 1 % of time: <0.1 -RENEWABLE ENERGY TRADER: <0.1% AP-RENEWABLE ENERGY TRADER: <0.1% -VS: | | | 13.8% AP-VS: 86.1% RENEWABLE ENERGY TRADER: Magnetic Rate: 85 LINDA: 65 LEAH: Current [...] | Date: October 23, 2014DOB: 1960 Line Lead: Chikis Saule Leadership Program Associate: | | Medtronic Sense (mV) Impedance (?) Capture (V) Capture (ms) A Lead 2.80-4.00 407 1.500 | | 0.09 RV Lead 22.40-31.36 519 2.000 0.09 LV Lead Battery Impedance (?): 658 Battery | | Voltage (V): 2.79 ME Interval (ms): 155 AR Interval (ms): 240 VA Conduction: Mode | | Switch Events: 1 % of time: <0.1 -RENEWABLE ENERGY TRADER: <0.1% AP-RENEWABLE ENERGY TRADER: <0.1% -VS: 13.8% AP-VS: 86.1% RENEWABLE ENERGY TRADER: | | Magnetic Rate: 85 LINDA: 65 [...] lac or graft | + + | Other chest pain | + + | Chest pain Chest pain, unspecified | + + | Coronary artery disease Coronary atherosclerosis of unspecified type of vessel, | | fond du lac or graft | + + | Pacemaker [...]
--- OUTSIDE RECORDS SUMMARY | ~2019-11-12 | XMS | Encounter Summary ---
Demographics + + + | Address | [address] | | | [place] [address] | + + + | Home Phone [...] Providers + +------+ + | Care Senior Bi Architect Name | Role | Phone | [...] Provider Unknown | | | | | [place], [place] | [phone] | | | | | [address] | | | | | | [phone] | | | +--------+ + + + [...] + + + +---------+ + + | [place]-3 Fatty | CAPS, one capsule by [...] | | | | | | | #[id number], exp 07/2016 | | | | | [...] | [facility] | | | | [facility] | (Primary Dx); | | | | | [place] [address] | Presence of | | | | | [phone] | permanent cardiac | | | | [...] | | | | | | [place], | | | | | | [place] [address] | | | | | | [phone] | | | | | | | [...]
--- OUTSIDE RECORDS SUMMARY | ~2019-11-12 | XMS | Encounter Summary ---
Demographics + + + | Address | [address] | | | [place] [address] | + + + | Home Phone [...] + +------+ + | Care Food Service Lead Name | Role | Phone | [...] abdominal | [address] | [address] [place], | | | | | pain | [address] | [address] | | | | | Chronic pain | [address] | [place], | | | | | syndrome | [place], [place] | [place] [address] | | | | | Procedures | [address] | Phone: | | | | | Office Visit | Phone: | [phone] | | | | | | [phone] | Fax: | | | | | | Fax: | [phone] | | | | | | [phone] | | +--------+--------+ + + + + Encounter Details +--------+---------+ + + + | Date | Type | Department | Care Team | Description | +--------+---------+ + + + | 12/02/ | Office | [facility] [place] | Emmanuel Daniel MD | Diarrhea, | | 2018 | Visit | GASTROENTEROLOGY | [address], [place] | unspecified type | | | | [address] | [address] [place], [place] | (Primary Dx); Weight | | | | [address] [place], [place] | [address] | loss, | | | | [address] | | unintentional; | | | | [phone] | | Generalized | | | | [...] Dx); | | | | | [place] [address] | Presence of | | | | | [phone] | permanent cardiac | | | | [...] | | | | | | [place], | | | | | | [place] [address] | | | | | | [phone] | | | | | | | [...]
--- OUTSIDE RECORDS SUMMARY | ~2019-11-12 | XMS | Encounter Summary ---
Demographics + + + | Address | [address] | | | [place] [address] | + + + | Home Phone [...] Providers + +------+ + | Care Design Engineering Specialist Name | Role | Phone | [...] 2019 | | GASTROENTEROLOGY | [address], [place] | | | | | [address] [place] | [address] [place], [place] | | | | | [address] [place], [place] | [address] | | | | | [address] | | | | | | [phone] | | | +--------+ + + + [...] Dx); | | | | | [place] [address] | Presence of | | | | | [phone] | permanent cardiac | | | | [...] | | | | | | [place] [address] | | | | | | [phone] | | | | | | | | +--------+ + + + + documented as of this encounter Visit Diagnoses Not on filedocumented in this encounter"
--- OUTSIDE RECORDS SUMMARY | ~2019-11-12 | XMS | Encounter Summary ---
Demographics + + + | Address | [address] | | | [place] [address] | + + + | Home Phone [...] Providers + +------+ + | Care Auto Wash Buffer Name | Role | Phone | + +------+ + PCP | Unavailable | + +------+ + Encounter Details +--------+ + + + + | Date | Type | Department | Care Team | Description | +--------+ + + + + | 05/28/ | [facility] | [facility] | Evan Gandara MD | | | 2008 | Encounter | MED CTR LABORATORY | [address] [facility] | | | | | [address] | [place] | | | | | [place] | [address] | | | | | [address] | | | | | | [phone] | | | +--------+ + + + [...] Interrogation | | | | | [place], | (Primary Dx); | | | | | [place] [address] | Presence of | | | | | [phone] | permanent cardiac | | | | [...] W | | | | | | [place], | | | | | | [place] [address] | | | | | | [phone] | | | | | | | | +--------+ + + + + documented as of this encounter Visit Diagnoses Not on filedocumented in this encounter"
--- OUTSIDE RECORDS SUMMARY | ~2019-11-12 | XMS | Encounter Summary ---
Demographics + + + | Address | [address] | | | [place] [address] | + + + | Home Phone [...] + +------+ + | Care Senior Applications Engineer Name | Role | Phone [...] Eva ROUSE | | | | | [place], [place] | [address] | | | | | [address] | [place] [address] | | | | | [phone] | [phone] | | | | | | | [...] Dx); | | | | | [place] [address] | Presence of | | | | | [phone] | permanent cardiac | | | | [...] | | | | | | [place], | | | | | | [place] [address] | | | | | | [phone] | | | | | | | [...]
--- OUTSIDE RECORDS SUMMARY | ~2019-11-12 | XMS | Encounter Summary ---
Demographics + + + | Address | [address] | | | [place] [address] | + + + | Home Phone [...] Providers + +------+ + | Care Master Brewer Name | Role | Phone | + +------+ + | Kirk French MD | PCP | | + +------+ + Encounter Details +--------+ + + + + | Date | Type | Department | Care Team | Description | +--------+ + + + + | 01/18/ | Hospital | [facility] | Conversion | Diagnosis unknown | | 2017 | Encounter | CONVERSION [address] | Transaction, | | | | | [address] | Provider Unknown | | | | | [place], [place] | [phone] | | | | | [address] | | | | | | [phone] | | | +--------+ + + + [...] + + + +---------+ + + | [place]-3 Fatty | CAPS, one capsule by [...] Dx); | | | | | [place] [address] | Presence of | | | | | [phone] | permanent cardiac | | | | [...] | | | | | | [place], | | | | | | [place] [address] | | | | | | [phone] | | | | | | | [...]
--- OUTSIDE RECORDS SUMMARY | ~2019-11-12 | XMS | Encounter Summary ---
Demographics + + + | Address | [address] | | | [place] [address] | + + + | Home Phone [...] Team Providers + +------+ + | Care Doors Prefitter Name | Role | Phone | + [...] | | | | Sinoatrial | Jose, INFRASTRUCTURE ARCHITECT | [address] | | | | | node | [address] | [place], | | | | | dysfunction | [place] | [place] | | | | | (HCC) | [place] | [address] | | | | | Coronary | [address] | Phone: | | | | | artery | Phone: | [phone] | | | | | disease | [phone] | Fax: | | | | | involving | Fax: | [phone] | | | | | craig | [phone] | | | | | | coronary | | | | | | | artery of | | | | | | | craig heart | | | | | | [...] | | | | | | Complete [place] | | | | | | | ECHO HEART | | | | | | | XTHORACIC,[place] | | | | | | | MPLETE W | | | | | | | DOPPLER [place] | | | | | | [...] | Visit | CARDIOLOGY [address] | INFRASTRUCTURE ARCHITECT [address] | dysfunction (HCC) | | | | [address] [place], | St [place], [place] | with symptomatic | | | | [place] [address] | [address] | bradycardia (Primary | | | | [phone] | | Dx); Coronary | | | | | | artery disease | | | | | | involving craig | | | | | | coronary artery of | | | | | | craig heart without | | | | | [...] Preventative health care Coronary artery disease involving craig coronary artery without angina pectoris Cannabis abuse, [...] 3rd dose, call 911 100 tablet 3 [place]-3 Fatty Acids (SALMON OIL-1000 PO) CAPS, one [...] scanned Paceart documentation and device PDF in AccuRev for interrogation (with progr amming changes) performed [...] to go back in 3 days to [place] for an attempt of ablation under general [...] dizziness. He is in class I-II of [place] Heart Ass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 T here are [...] this chart may have been created with Merge Social voice recognition software. Occasi onal wrong-word or [...] Dx); | | | | | [place] [address] | Presence of | | | | | [phone] | permanent cardiac | | | | [...] | | | | | [place], | | | | | | [place] [address] | | | | | | [phone] | | | | | | | [...] VICTOR HUGO | [facility] | | [place] Room Number SARAH Patient | [facility] | | [id number] Date of Study 06/16/2016 Number | - IMAGING | | Visit Number [id number] | | | Referring Physician HELLBERG JOSE Number Date of 1960 | | | Air Brush Artist LUIS FERNANDO DUARTE Age | | | 56 year(s) Interpreting | | | GURJIT TROY | | | Tree Farmer SYDNI SINGLETARY, | | | Gender | | | Male Nurse Procedure Type of Study TTE | | | procedure: ECHO Complete. Procedure dateDate: 06/16/2016Start: 10:55 | | | AM Technical Quality: Adequate visualizationStudy Location: Echo | | | LabIndications: CAD HOONAH CORONARY ARTERY 414.01/ I25.10 and | | [...] BARRY Room Number SARAH | | Patient [id number] Date of Study 06/16/2016 Number Visit Number | | [id number] Referring Physician JOSE ARMANDO GARCIA Number | | Date of 1960 Air Brush Artist LUIS FERNANDO DUARTE Age | | 56 year(s) Interpreting GURJIT TROY | | Tree Farmer SYDNI SINGLETARY, | | Gender Male NurseProcedureType of Study TTE | | procedure: ECHO Complete.Procedure dateDate: 07/26/2016Start: 10:55 AMTechnical Quality: | | Adequate visualizationStudy Location: Echo LabIndications: CAD [place] CORONARY ARTERY | | 414.01/ I25.10 and [...] + + | [facility] | [address] | [place] | [phone] | | [facility] | | [address] | | | - IMAGING | | [...] | | 2. Coronary artery disease involving craig coronary artery of | | | craig heart without angina pectoris I25.10 414.01 ECHO [...] + + | Coronary artery disease involving craig coronary artery of craig heart without | | angina pectoris | [...]
--- OUTSIDE RECORDS SUMMARY | ~2019-11-12 | XMS | Encounter Summary ---
Demographics + + + | Address | [address] | | | [place] [address] | + + + | Home Phone [...] Team Providers + +------+ + | Care Sorter Packer Name | Role | Phone | + +------+ + | Michael Amanda DO | PCP | | + +------+ + Encounter Details +--------+ + + + + | Date | Type | Department | Care Team | Description | +--------+ + + + + | 07/30/ | Abstract | [facility] [place] [facility] | Michael Amanda, | | | 2013 | | [facility] | DO [address] | | | | | [address] | [place] | | | | | [place] | [address] | | | | | [address] | | | | | | [phone] | | | +--------+ + + + [...] 2019 | Monitor | | [address] | Interrogation | | | | | [place], | (Primary Dx); | | | | | [place] [address] | Presence of | | | | | [phone] | permanent cardiac | | | | [...] W | | | | | | [place], | | | | | | [place] [address] | | | | | | [phone] | | | | | | | [...] + | [facility] | [address] | [place] | [phone] | | [facility] | | [address] | | | - LABORATORY | | | | + + + + + | [facility] | [address] | [place] | | | [facility] | | [address] | | | - LABORATORY | | [...] | | | | | | | Eritrean, | | | | | | External [...]
--- OUTSIDE RECORDS SUMMARY | ~2019-11-12 | XMS | Encounter Summary ---
Demographics + + + | Address | [address] | | | [place] [address] | + + + | Home Phone [...] + +------+ + | Care Regulatory Affairs Portfolio Leader Name | Role | Phone | [...] [address] | | | | | [address] | [place] | | | | | [phone] | [address] | | | | | | [phone] | | | | | | | [...] Notes by Kylah Fraser CMA at 04/11/18 7190 Author: Kylah Fraser CMA Service: (none) Author Type: Oil Rig Roughneck Filed: 04/19/18 1118 Encounter Date: 04/11/2018 Status: Signed Medical Staff Services Coordinator: Kylah Fraser CMA (Oil Rig Roughneck) See telephone encounter 04/19/18. Karen pfeiffer in [...] Dx); | | | | | [place] [address] | Presence of | | | | | [phone] | permanent cardiac | | | | [...] W | | | | | | [place], | | | | | | [place] [address] | | | | | | [phone] | | | | | | | [...]
--- OUTSIDE RECORDS SUMMARY | ~2019-11-12 | XMS | Encounter Summary ---
Demographics + + + | Address | [address] | | | [place] [address] | + + + | Home Phone [...] Providers + +------+ + | Care Speech And Language Specialist Name | Role | Phone | [...] + + | 09/01/ | Office | [facility] | [place], | Ascending thoracic | | 2015 | Visit | CARDIOLOGY [address] | [address] | aortic aneurysm | | | | [place], | [place], | ([facility]) (Primary Dx); | | | | [place] [address] | [place] [address] | Coronary artery | | | | [phone] | [phone] | disease involving | | | | | | [place] coronary | | | | | | artery of [place] | | | | | | heart [...] non-critical coronary artery d isease involving [place] coronary artery of [place] heart without angina pectoris, essential h ypertension, [...] episode of chest pain while nelly ng [facility], so he took some sublingual [...] health care Coronary artery disease involving [place] coronary artery of [place] heart without angina pectoris Cannabis abuse, daily [...] every evening 90 tablet 3 [facility] [employer] (OSTEO BI-FLEX/5-LOXIN ADVANCED [...] 3rd dose, call 911 100 tablet 3 [place]-3 Fatty Acids (SALMON OIL-1000 PO) CAPS, one [...] PLTEX 129* 05/12/2016 I reviewed records from [facility] for [facility] visit on [facility] is summarized in the HPI. [...] He is in class II of the [place] Heart Ass 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 On physical examination there are no signs of fluid overload. The plan will be to lose weight, modify portion control, start exercising, limit sodium in take and we will start losartan 25 mg once a day with a close monitoring of blood pressure. 2. Non-critical Coronary artery disease involving [place] coronary artery of [place] heart [facility] angina pectoris: A. Normal exercise sestamibi [...] to go back in 3 days to [place] for an attempt of ablation under [...] this chart may have been created with [employer] voice recognition software. Occasi onal wrong-word [...] Interrogation | | | | | [place], | (Primary Dx); | | | | | [place] [address] | Presence of | | | | | [phone] | permanent cardiac | | | | [...] W | | | | | | [place], | | | | | | [place] [address] | | | | | | [phone] | | | | | | | [...] + | Coronary artery disease involving [place] coronary artery of [place] heart without | | angina pectoris | + + | Essential hypertension with goal blood pressure less than 130/80 | + + | Hyperlipidemia, mixed Mixed hyperlipidemia | + + documented in this encounter
--- OUTSIDE RECORDS SUMMARY | ~2019-11-12 | XMS | Encounter Summary ---
Demographics + + + | Address | [address] | | | [place] [address] | + + + | Home Phone [...] Providers + +------+ + | Care Wildlife Science Professor Name | Role | Phone [...] + | 12/23/ | Telephone | [facility] | Daljit Singletary, | Other (question | | 2015 | | CARDIOLOGY [address] | [address] | about diet | | | | [place], | [place], | medication) | | | | [place] [address] | [place] [address] | | | | | [phone] | [phone] | | | | | | | [...] Dx); | | | | | [place] [address] | Presence of | | | | | [phone] | permanent cardiac | | | | [...] | | | | | | [place] [address] | | | | | | [phone] | | | | | | | | +--------+ + + + + documented as of this encounter Visit Diagnoses Not on filedocumented in this encounter"
--- OUTSIDE RECORDS SUMMARY | ~2019-11-12 | XMS | Encounter Summary ---
Demographics + + + | Address | [address] | | | [place] [address] | + + + | Home Phone [...] Providers + +------+ + | Care Station Installer And Repairer Name | Role | Phone [...] Provider Unknown | | | | | [place], [place] | [phone] | | | | | [address] | | | | | | [phone] | | | +--------+ + + + [...] + + + +---------+ + + | [place]-3 Fatty | CAPS, one capsule by | [...] | | | | | | | #[id number], exp 07/2016 | | | | | [...] | [facility]ation | | | | [facility] | ([facility] Dx); | | | | | [place] [address] | Presence of | | | | | [phone] | permanent cardiac | | | | [...] W | | | | | | [place], | | | | | | [place] [address] | | | | | | [phone] | | | | | | | [...]
--- OUTSIDE RECORDS SUMMARY | ~2019-11-12 | XMS | Clinical Summary ---
Demographics + + + | Address | [address] [place] [address] | | | [place] [address] | + + + | Home Phone [...] [place] | | | | | [address] | | + + + + + Care Team Providers + +------+ + | Care Print Finisher Name | Role | Phone | + +------+ + | Darion Holden DO | PCP | | + +------+ + Source Comments IVETTE is fully live on both EpicCare Ambulatory and EpicCare InPatient.[facility]ly [facility] [...] | | | | | | | [address] | | + +--------+ +--------+ + +--------+ | [employer] | AARP | xxxxxxxxxx | 11/22/19 | [phone] | [address] | Indemn | | RETIRED PEOPLE | | | 10-Pre | 9 | [id number] | ity | | | | | sent | | [place] | | | | | | | | [address] | | + +--------+ +--------+ + +--------+ + +--------+ +--------+ + + | Guarantor Name | Accoun | Relation to | Date | Phone | Billing Address | | | t Type | Patient | of | | | | | | | | | | + +--------+ +--------+ + + | Moe Sanchez | Person | Self | [birth year] | [address] | | | al/Per | | 1959 | [phone] | [place] | | | roxanne | | | 8 (Home) | [address] | + +--------+ +--------+ + + Advance Directives + + + + + | Type | Date Recorded | Patient | Explanation | | | | Steel Fixer | | + + + + + | Advance | | | | | Directives and | | | | | Living Will | | | | + + + + + | Power of | | | | | Men'S Swim Coach | | | | + + + + +
--- OUTSIDE RECORDS SUMMARY | ~2019-11-12 | XMS | Encounter Summary ---
Demographics + + + | Address | [address] | | | [place] [address] | + + + | Home Phone [...] + +------+ + | Care Crime Scene Investigator Name | Role | Phone | [...] | Aneurysmal | [place], | [address] [place] | | | | | dilatation | [place] | [place], | | | | | (HCC) | [address] | [place] | | | | | Procedures | [place] | [address] | | | | | ECHO | [place], | Phone: | | | | | Complete | [place] | [phone] | | | | | | [address] | Fax: | | | | | | Phone: | [phone] | | | | | | [phone] | | | | | | | Fax: | | | | | | | [phone] | | +--------+--------+ + + + + Encounter Details +--------+ + + + + | Date | Type | Department | Care Team | Description | +--------+ + + + + | 11/16/ | Orders Only | [facility] [place] | [place], | Aneurysmal | | 2017 | | CARDIOLOGY [address] | [place] [address] | dilatation (HCC) | | | | [place], | [place], | (Primary Dx) | | | | [place] [address] | [place] [address] | | | | | [phone] | [phone] | | | | | | | [...] | 2019 | Monitor | | [address] [place] | Interrogation | | | | | [place], | (Primary Dx); | | | | | [place] [address] | Presence of | | | | | [phone] | permanent cardiac | | | | [...] | | | | | | [place], | | | | | | [place] [address] | | | | | | [phone] | | | | | | | [...] Room Number SARAH Patient | | | [id number] Date of Study 11/16/2017 Number | | | Visit Number [id number] | | | Referring Physician GURJIT TROY Number | | | ELIZABETHANGELIA SOLIS Date | | | of 1960 Plc Controls Engineer ROMAINE | | | MARISSA TIPTON Age 57 year(s) Interpreting | | | GURJIT TROY | | | Printing Plate Maker SYDNI SINGLETARY, | | | | | | Gender Male Nurse | | | Stress Power Generation Technician Procedure Type of | | | Study [...] | | | EF | | | Gfxtvmvbh85% Left Ventricle Diastolic Dimension: 5.12 cm | [...] Volume: 46.33 ml | | | EF Qqtomzuur32% | | | | | | Left [...] BARRY Room Number SARAH | | Patient [id number] Date of Study 11/16/2017 Number Visit Number | | [id number] Referring Physician GURJIT TROY | | Number NORMA MCLAUGHLINN Date of | | 1960 Plc Controls Engineer ROMAINE TIPTON RDCS Age 57 year(s) | | Interpreting GURJIT TROY Printing Plate Maker | | SYDNI SINGLETARY MD | | [...] [place] Volume: 46.33 ml | | EF Gcgqqsvcu52% Left Ventricle Diastolic Dimension: 5.12 cm Systolic [...] LA Volume: 46.33 ml | | EF Kxiytwixa66% | | | | Left Ventricle | [...]
--- OUTSIDE RECORDS SUMMARY | ~2019-11-12 | XMS | Encounter Summary ---
Demographics + + + | Address | [address] | | | [place] [address] | + + + | Home Phone [...] Providers + +------+ + | Care Director Clinical Data Name | Role | Phone | [...] [place] | | | | | | [address] | | | | | | [phone] | | | +--------+ + + + [...] + + + +---------+ + + | Berkeley-3 Fatty | CAPS, one capsule by | [...] Dx); | | | | | [place] [address] | Presence of | | | | | [phone] | permanent cardiac | | | | [...] | | | | | | [place] [address] | | | | | | [phone] | | | | | | | | +--------+ + + + + documented as of this encounter Visit Diagnoses + + | Diagnosis | + + | Patient left after triage - Primary | + + documented in this encounter
--- OUTSIDE RECORDS SUMMARY | ~2019-11-12 | XMS | Encounter Summary ---
Demographics + + + | Address | [address] | | | [place] [address] | + + + | Home Phone [...] Providers + +------+ + | Care Veterinary Meat Inspector Name | Role | Phone [...] | | | | | region | [address] | | | | | | Procedures | [address] | | | | | | [address] | [place], [place] | | | | | | Myelography | [address] | | | | | | Lumbar Spine | Phone: | | | | | | | [phone] | | | | | | | Fax: | | | | | | | [phone] | | +--------+--------+ + + + + [...] | | | | | region | [address] | | | | | | Procedures | [address] | | | | | | CT | [place], [place] | | | | | | Myelography | [address] | | | | | | Lumbar Spine | Phone: | | | | | | | [phone] | | | | | | | Fax: | | | | | | | [phone] | | +--------+--------+ + + + + Encounter Details +--------+ + + + + | Date | Type | Department | Care Team | Description | +--------+ + + + + | 04/07/ | Hospital | [facility] | Pia Akhtar | Spinal stenosis, | | 2016 | Encounter | MED CTR [address] | MD [address] | lumbar region | | | | [place], | [address] | | | | | [place] [address] | [place] [address] | | | | | [phone] | [phone] | | | | | | | [...] + + + +---------+ + + | [place]reeze-3 Fatty | CAPS, one capsule by | [...] 2019 | Monitor | | [address] [place] | Interrogation | | | | | [place], | (Primary Dx); | | | | | [place] [address] | Presence of | | | | | [phone] | permanent cardiac | | | | [...] W | | | | | | [place], | | | | | | [place] [address] | | | | | | [phone] | | | | | | | [...]
--- OUTSIDE RECORDS SUMMARY | ~2019-11-12 | XMS | Encounter Summary ---
Demographics + + + | Address | [address] | | | [place] [address] | + + + | Home Phone [...] Team Providers + +------+ + | Care Oxygen Furnace Operator Name | Role | Phone [...] | | CARDIOLOGY [address] | Janeen SHORE WORKING SUPERVISOR [address] | mixed | | | | [place], | [place], | | | | | [place] [address] | [place] [address] | | | | | [phone] | [phone] | | | | | | | [...] 2018 | Monitor | | MD [address] [place] | Interrogation | | | | | [place], | (Primary Dx); | | | | | [place] [address] | Presence of | | | | | [phone] | permanent cardiac | | | | [...] W | | | | | | [place], | | | | | | [place] [address] | | | | | | [phone] | | | | | | | | +--------+ + + + + documented as of this encounter Visit Diagnoses + + | Diagnosis | + + | Hyperlipidemia, mixed Mixed hyperlipidemia | + + documented in this encounter"
--- OUTSIDE RECORDS SUMMARY | ~2019-11-12 | XMS | Encounter Summary ---
Demographics + + + | Address | [address] | | | [place] [address] | + + + | Home Phone [...] + +------+ + | Care Product Applications Engineer Name | Role | Phone | + +------+ + PCP | Unavailable | + +------+ + Encounter Details +--------+ + + + + | Date | Type | Department | Care Team | Description | +--------+ + + + + | 06/13/ | [facility] | [facility] | Daljit Singletary, | | | 2008 | Encounter | MED CTR LABORATORY | [address] | | | | | [address] [place] | [address], | | | | | [place] | [place] [address] | | | | | [address] | [phone] | | | | | [phone] | | | +--------+ + + + [...] Dx); | | | | | [place] [address] | Presence of | | | | | [phone] | permanent cardiac | | | | [...] | | | | | | [place] [address] | | | | | | [phone] | | | | | | | | +--------+ + + + + documented as of this encounter Visit Diagnoses Not on filedocumented in this encounter"
--- OUTSIDE RECORDS SUMMARY | ~2019-11-12 | XMS | Encounter Summary ---
Demographics + + + | Address | [address] | | | [place] [address] | + + + | Home Phone [...] Providers + +------+ + | Care County Library Director Name | Role | Phone [...] + + | 01/03/ | Telephone | [facility] | Emmanuel Daniel MD | Results, Pathology | | 2018 | | GASTROENTEROLOGY | [address], [place] | (egd,colon) | | | | [address] [place] | [address] [place], [place] | | | | | [address] [place], [place] | [address] | | | | | [address] | | | | | | [phone] | | | +--------+ + + + [...] 2019 | Monitor | | MD Sim [address] | Interrogation | | | | | [place], | (Primary Dx); | | | | | [place] [address] | Presence of | | | | | [phone] | permanent cardiac | | | | [...] | | | | | | [place], | | | | | | [place] [address] | | | | | | [phone] | | | | | | | | +--------+ + + + + documented as of this encounter Visit Diagnoses Not on filedocumented in this encounter"
--- OUTSIDE RECORDS SUMMARY | ~2019-11-12 | XMS | Encounter Summary ---
Demographics + + + | Address | [address] | | | [place] [address] | + + + | Home Phone [...] Providers + +------+ + | Care Supervisor Brooder Farm Name | Role | Phone | [...] 2019 | | GASTROENTEROLOGY | [address], [place] | | | | | [address] [place] | [address] [place], [place] | | | | | [address] [place], [place] | [address] | | | | | [address] | | | | | | [phone] | | | +--------+ + + + [...] | Monitor | | MD [address] [place] | Interrogation | | | | | [place], | (Primary Dx); | | | | | [place] [address] | Presence of | | | | | [phone] | permanent cardiac | | | | [...] | | | | | | [place], | | | | | | [place] [address] | | | | | | [phone] | | | | | | | | +--------+ + + + + documented as of this encounter Visit Diagnoses Not on filedocumented in this encounter"
--- OUTSIDE RECORDS SUMMARY | ~2019-11-12 | XMS | Encounter Summary ---
Demographics + + + | Address | [address] | | | [place] [address] | + + + | Home Phone [...] Providers + +------+ + | Care Child Watch Attendant Name | Role | Phone | [...] 2019 | | GASTROENTEROLOGY | [address], [place] | | | | | [address] [place] | [address] [place], [place] | | | | | [address] [place], [place] | [address] | | | | | [address] | | | | | | [phone] | | | +--------+--------+ + + + [...] | | | | | [address] [place], | (Primary Dx); | | | | | [place] [address] | Presence of | | | | | [phone] | permanent cardiac | | | | [...] | | | | | | [place] [address] | | | | | | [phone] | | | | | | | | +--------+ + + + + documented as of this encounter Visit Diagnoses Not on filedocumented in this encounter"
--- OUTSIDE RECORDS SUMMARY | ~2019-11-12 | XMS | Encounter Summary ---
Demographics + + + | Address | [address] | | | [place] [address] | + + + | Home Phone [...] Providers + +------+ + | Care Legal Office Administrator Name | Role | Phone [...] | SLEEP DISORDER [address] | [address] | Dx) | | | | [address] [place] | [place] | | | | | [place] [address] | [address] | | | | | [phone] | | | +--------+---------+ + + + [...] pillows obtained from: [facility] [place] pressure is: 13 cm CPAP download shows [...] to go to [facility] [place] to have them download his memory card. I will readjust his pressure, if necessary. I will call him with the results. He is to work toward wearing his CPAP 100% of the time he is asleep. I will follow up again in 1 month, sooner prn. Fifteen minutes were spent rali-dy-sxgu, wi th the majority of time spent [...] MD Sim [facility] | Interrogation | | | | | [place], | (Primary Dx); | | | | | [place] [address] | Presence of | | | | | [phone] | permanent cardiac | | | | [...] W | | | | | | [place], | | | | | | [place] [address] | | | | | | [phone] | | | | | | | | +--------+ + + + + documented as of this encounter Visit Diagnoses + + | Diagnosis | + + | DIDIER on CPAP - Primary Obstructive sleep apnea (adult) (pediatric) | + + documented in this encounter
--- OUTSIDE RECORDS SUMMARY | ~2019-11-12 | XMS | Encounter Summary ---
Demographics + + + | Address | [address] [place] [address] | | | [place] [address] | + + + | Home Phone [...] [place] | | | | | [address] | | + + + + + Care Team Providers + +------+ + | Care Quarter Backer Name | Role | Phone | + [...] | | | | | [place] | [facility] 2 | | | | | | [place], [place] | [place], [place] | | | | | | [address] | [address] | | | | | | Phone: | Phone: | | | | | | [phone] | [phone] | | | | | | Fax: | Fax: | | | | | | [phone] | [phone] | +--------+--------+ + + + + Encounter Details +--------+---------+ + + + | Date | Type | Department | Care Team | Description | +--------+---------+ + + + | 09/28/ | Office | Dig[facility]ive [facility] | Bridgette Rios, | Chronic diarrhea | | 2019 | Visit | [facility] [address] | [address] | (Primary Dx); | | | | [address] | [place], [place] | Abdominal cramping; | | | | Mailcode: [place] | [address] | Unintentional weight | | | | for Health and | [phone] | loss | | | | [facility], [facility] 2 | | | | | | [place], [place] | | | | | | [address] | | | | | | [phone] | | | +--------+---------+ + + + [...] some lab orders to [facility] 2. licensed embalmer supervisor the nortryptiline and take 1 tablet [...] different fr om the original. Gastroenterology Clinic [facility] ~ Initial Consultation / New [...] CT scan done through [facility] November show ed mild diverticulosis without [...] of Present Illness: Here with his from [place] for second opinion regarding severe abdominal cramps, isreal rrhea and weight loss following a GI illness contracted during a trip to [facility]. He reports that 2 years ago he was traveling in [facility] and he had some suspicious seafood. He develo ps profound bloody diarrhea with severe abdominal pain. He was hospitalized in [facility] and w as treated with IV [...] file Gets together: Not on file Attends temple service: Not on file Active member of [...] Plan and Recommendations: 1. [facility] in [place] for stool studies as outlined above 2. If negative and symptoms persist, recommend capsule endoscopy (this could be completed b y local sequencing machine operator or he could return to [place] for this test) 3. Nortryptiline 25mg q HS with instruction to titrate to 50mg q HS after 2 weeks if tolera kevin Follow-Up: with local sequencing machine operator Counseling Time: I spent a total of 35 minutes with this patient, of which greater than 50 % of the time was spent in counseling. Specific issues that were discussed included a revie w of the disease, diagnostic tools that help in our management plans for the patient's chron ic diarrhea, abdominal cramping and weight loss and goals for treatment. Bridgette Rios MD Headlight Adjuster Gastroenterology documented in this e ncounter Plan [...]
--- OUTSIDE RECORDS SUMMARY | ~2019-11-12 | XMS | Encounter Summary ---
Demographics + + + | Address | [address] [place] [address] | | | [place] [address] | + + + | Home Phone [...] [place] | | | | | [address] | | + + + + + [...] | | | | [address] | [place], [place] | | | | | Mailcode: [place] | [address] | | | | | for Health and | [phone] | | | | | [facility] 2 | | | | | | [place], [place] | | | | | | [address] | | | | | | [phone] | | | +--------+ + + + [...]
--- OUTSIDE RECORDS SUMMARY | ~2019-11-12 | XMS | Encounter Summary ---
Demographics + + + | Address | [address] | | | [place] [address] | + + + | Home Phone [...] + + | 01/05/ | Anesthesia | [facility] | Jarett Barakat | | | 2019 | Event | MED CTR MP INTRA OP | P, MD [address] | | | | | [address] | [address] [place], [place] | | | | | [place], [place] | [address] | | | | | [address] | [phone] | | | | | [phone] | | | +--------+ + + + [...] explained and consent obtained. Patient transported to [facility], | | | 4 | | [...] | 01/05/19950 by | | eral | usgl-mrr-keqxsr catheter system; | Kasie Natarajan RN | [...] Dx); | | | | | [place] [address] | Presence of | | | | | [phone] | permanent cardiac | | | | [...] | | | | | [place], | | | | | | [place] [address] | | | | | | [phone] | | | | | | | [...] | | | Vomiting, Starting [facility] 01/05/19 at | | AM PST | [...]
--- OUTSIDE RECORDS SUMMARY | ~2019-11-12 | XMS | Encounter Summary ---
Demographics + + + | Address | [address] | | | [place] [address] | + + + | Home Phone [...] Providers + +------+ + | Care Process Control Engineer Name | Role | Phone [...] unspecified | [address] [place] [address] | | | | | type | [address] | [place], | | | | | Procedures | [place], | [place] | | | | | [place] | [place] [address] | [address] | | | | | Stress Test | Phone: | Phone: | | | | | (Vasodilator | [phone] | [phone] | | | | | ) CHG | Fax: | Fax: | | | | | MYOCARDIAL | [phone] | [phone] | | | | | SPECT | | | | | | | MULTIPLE | | | | | | | STUDIES MO | | | | | | | CV STRS TST | | | | | | | XERS&/OR RX | | | | | | | CONT ECG W/O | | | | | | | I&R MO | | | | | | | [...] | type | [address] | [address] | | | | | Procedures | [place] | [place], | | | | | FUP | [place] | [place] [address] | | | | | | [address] | Phone: | | | | | | Phone: | [phone] | | | | | | [phone] | Fax: | | | | | | Fax: | [phone] | | | | | | [phone] | | +--------+ + + + + + Encounter Details +--------+---------+ + + + | Date | Type | Department | Care Team | Description | +--------+---------+ + + + | 06/27/ | Office | [facility] | Sydni Singletary, | Pacemaker | | 2017 | Visit | CARDIOLOGY [address] | [address] [facility] | reprogramming/check | | | | [place], | [place], | DO NOT DELETE | | | | [place] [address] | [place] [address] | (Primary Dx); Chest | | | | [phone] | [phone] | pain, unspecified | | | | [...] of non-critical coronary artery d isease involving hughes coronary artery of hughes heart without angina pectoris, essential h ypertension, [...] that time, patient has been seen at [place] emergency department on 018 for chest pain [...] Preventative health care Coronary artery disease involving hughes coronary artery of hughes heart without angina pectoris Cannabis abuse, daily [...] every evening 90 tablet 0 [facility] Natural Products (OSTEO BI-FLEX/5-LOXIN [...] 3RD DOSE, CALL 911 100 tablet 3 Bumpass-3 Fatty Acids (SALMON OIL-1000 PO) CAPS, one [...] ventricular arrhythmia performed by Dr. Gambino at [facility] on 01/30/2013. Patient had spontaneous [...] to go back in 3 days to [place] for an attempt of ablation under general [...] PVCs. 2. Non-critical Coronary artery disease involving hughes coronary artery of hughes heart [facility] angina pectoris: A. Normal exercise sestamibi stress test on 05/25/09. LVEF by [facility] ed SPECT was 53%. B. Echocardiogram [...] cannot completely be ruled out . [facility] 12/25/13, shows non critical coronary artery [...] He is in a class I of [place] [employer] functiona l class. There is [...] reviewed and edited this note. Allyson Curtis, Special Effects Person 06/27/2018 I, Sydni Singletary MD, personally performed the services described in this documentation, as scribed in my presence and it is both accurate and complete. Allyson Curtis, Med Ass t 06/27/2018 14:15 Electronically signed by: Sydni Singletary MD [facility] 06/27/2018 Portions of this chart may have been created with [employer] voice recognition software. Occasi onal wrong-word or [...] | Monitor | | [address] [place] | Interrogation | | | | | [place], | (Primary Dx); | | | | | [place] [address] | Presence of | | | | | [phone] | permanent cardiac | | | | [...] | | | | | | [place], | | | | | | [place] [address] | | | | | | [phone] | | | | | | | [...] SYDNI | | | | | | ([id number]) on 06/27/2018 | | | | | [...]
--- OUTSIDE RECORDS SUMMARY | ~2019-11-12 | XMS | Encounter Summary ---
Demographics + + + | Address | [address] | | | [place] [address] | + + + | Home Phone [...] Providers + +------+ + | Care Psychiatric Registered Nurse Name | Role | Phone [...] + | 12/23/ | Telephone | [facility] | Silvia, | Lab Order (due for | | 2017 | | CARDIOLOGY [address] | Janeen, MANAGER FORMS [address] | fasting labs) | | | | [place], | [place], | | | | | [place] [address] | [place] [address] | | | | | [phone] | [phone] | | | | | | | [...] Dx); | | | | | [place] [address] | Presence of | | | | | [phone] | permanent cardiac | | | | [...] | | | | | | [place] [address] | | | | | | [phone] | | | | | | | | +--------+ + + + + documented as of this encounter Visit Diagnoses Not on filedocumented in this encounter"
--- OUTSIDE RECORDS SUMMARY | ~2019-11-12 | XMS | Clinical Summary ---
Demographics + + + | Address | [address] | | | [place] [address] | + + + | Home Phone | | + + + | Preferred Language | Unknown | + + + | Marital Status | | + + + | Restorationism Affiliation | 1013 | + + + | Race | Unknown | + + + | Ethnic Group | Unknown | + + + Author + + + | Author | [employer] (Historical as of | | | 07-08-19) | + + + | Organization | [facility] [employer] (Historical as of | | | 07-08-19) [...] + +------+ + | Care Ict Support Engineer Name | Role | Phone | [...] + | AUTO INSURANCE | AUTO | [id number] | | | | | | INSURA | | | | | | | NCE | | | | | | | GENERI | | | | | | | C | | | | | + +--------+ +------+-------+ + | AUTO INSURANCE | AUTO | [id number] | | | | | | INSURA | [id number] | | | | | | NCE | | | | | | | GENERI | | | | | | | C | | | | | + +--------+ +------+-------+ + | MEDICARE | MEDICA | [id number] | | | [address] | | | RE | | | | [place], [place] [address] | | | IP-OP | | | | | + +--------+ +------+-------+ + | [facility] | CHAUNCEY | [id number] | | | | | | | [...] | Self | [birth year] | Home: | [address] | | | al/Fam | | 9 | +1- | [address] [place], [place] | | | roxanne | | | [address] | [address] | + +--------+ +--------+ + + | AMILCAR GAY | Third | Self | [birth year] | Home: | [address] | | | [place] | | 9 | +- | [place], [place] | | | Li[place] | | | [address] | [address] | | | ity | | | | | + +--------+ +--------+ + + | AMILCAR GAY | Third | Self | [birth year] | Home: | [address] | | | [place] | | 1960 | +- | [place], [place] | | | [place] | | | [address] | [address] | | | ity | | | | | + +--------+ +--------+ + +
--- OUTSIDE RECORDS SUMMARY | ~2019-11-12 | XMS | Encounter Summary ---
Demographics + + + | Address | [address] | | | [place] [address] | + + + | Home Phone [...] Team Providers + +------+ + | Care Rehab Physician Name | Role | Phone | [...] 2019 | | GASTROENTEROLOGY | [address] [place] | | | | | [address] [place] | [address] [place], [place] | | | | | [address] [place], [place] | [address] | | | | | [address] | | | | | | [phone] | | | +--------+ + + + [...] 2019 | Monitor | | MD [address] [place] [address] | Interrogation | | | | | [place], | (Primary Dx); | | | | | [place] [address] | Presence of | | | | | [phone] | permanent cardiac | | | | [...] W | | | | | | [place], | | | | | | [place] [address] | | | | | | [phone] | | | | | | | | +--------+ + + + + documented as of this encounter Visit Diagnoses Not on filedocumented in this encounter"
--- OUTSIDE RECORDS SUMMARY | ~2019-11-12 | XMS | Encounter Summary ---
Demographics + + + | Address | [address] | | | [place] [address] | + + + | Home Phone [...] Providers + +------+ + | Care Airport Electrician Name | Role | Phone | [...] thrombosis), | | | | [address] [place] [place] | [place], | bilateral (HCC) | | | | [place], [place] | [place] [address] | | | | | [address] | [phone] | | | | | [phone] | | | +--------+ + + + [...] + + + +---------+ + + | Acton-3 Fatty | CAPS, one capsule by | [...] | | | | | | | #[id number], exp 07/2016 | | | | | [...] | 2018 | Monitor | | [address] [place] | Interrogation | | | | | [place], | (Primary Dx); | | | | | [place] [address] | Presence of | | | | | [phone] | permanent cardiac | | | | [...] | | | | | | [place] [address] | | | | | | [phone] | | | | | | | [...] the groin through the popliteal fossa | [facility] | | in both [...] conveyed to the ordering provider, by the erosion control coordinator, | | | immediately following the exam. [...] to the ordering provider, by the | |erosion control coordinator, immediately following the exam. | | | [...] [address] | [place] | [phone] | | [facility] | | [address] | | | - IMAGING | | | | + + + + + documented in this encounter Visit Diagnoses + + | Diagnosis | + + | DVT (deep venous thrombosis), bilateral | + + documented in this encounter"
--- OUTSIDE RECORDS SUMMARY | ~2019-11-12 | XMS | Encounter Summary ---
Demographics + + + | Address | [address] | | | [place] [address] | + + + | Home Phone [...] Providers + +------+ + | Care Engineer Station Mainline Name | Role | Phone | + [...] 2014 | | CARDIOLOGY [address] | TAX COMMISSIONER [address] | | | | | [place], | [place], [place] | | | | | [place] [address] | [address] | | | | | [phone] | | | +--------+ + + + [...] Dx); | | | | | [place] [address] | Presence of | | | | | [phone] | permanent cardiac | | | | [...] | | | | | | [place] [address] | | | | | | [phone] | | | | | | | | +--------+ + + + + documented as of this encounter Visit Diagnoses Not on filedocumented in this encounter"
--- OUTSIDE RECORDS SUMMARY | ~2019-11-12 | XMS | Encounter Summary ---
Demographics + + + | Address | [address] | | | [place] [address] | + + + | Home Phone [...] Providers + +------+ + | Care Electronic Prepress Technician Name | Role | Phone | [...] | 06/17/ | Telephone | [facility] [place] | Silvia, | Lab Order (due for | | 2015 | | CARDIOLOGY [address] | [place] [address] | fasting labs prior | | | | [place], | [place], | to appt) | | | | [place] [address] | [place] [address] | | | | | [phone] | [phone] | | | | | | | [...] 2019 | Monitor | | MD [address] | Interrogation | | | | | [address] [place], | (Primary Dx); | | | | | [place] [address] | Presence of | | | | | [phone] | permanent cardiac | | | | [...] | | | | | | [place] [address] | | | | | | [phone] | | | | | | | | +--------+ + + + + documented as of this encounter Visit Diagnoses + + | Diagnosis | + + | Hyperlipidemia, mixed - Primary Mixed hyperlipidemia | + + documented in this encounter"
--- OUTSIDE RECORDS SUMMARY | ~2019-11-12 | XMS | Encounter Summary ---
Demographics + + + | Address | [address] | | | [place] [address] | + + + | Home Phone [...] Team Providers + +------+ + | Care Roster Clerk Name | Role | Phone | [...] | CARDIOLOGY [address] | [address] | card ) | | | | [address], | [place], | | | | | [place] [address] | [place] [address] | | | | | [phone] | [phone] | | | | | | | [...] Interrogation | | | | | [place], | (Primary Dx); | | | | | [place] [address] | Presence of | | | | | [phone] | permanent cardiac | | | | [...] W | | | | | | [place], | | | | | | [place] [address] | | | | | | [phone] | | | | | | | | +--------+ + + + + documented as of this encounter Visit Diagnoses Not on filedocumented in this encounter"
--- OUTSIDE RECORDS SUMMARY | ~2019-11-12 | XMS | Encounter Summary ---
Demographics + + + | Address | [address] | | | [place] [address] | + + + | Home Phone [...] Amanda, | | | 2013 | | [facility] | DO [address] | | | | | [address] | [place] | | | | | [place] | [address] | | | | | [address] | | | | | | [phone] | | | +--------+ + + + [...] 2019 | Monitor | | [address] | Interrogation | | | | | [place], | (Primary Dx); | | | | | [place] [address] | Presence of | | | | | [phone] | permanent cardiac | | | | [...] | | | | | | [place] [address] | | | | | | [phone] | | | | | | | [...] + | [facility] | [address] | [place] | [phone] | | [facility] | | [address] | | | - LABORATORY | | | | + + + + + | [facility] | [address] | [place] | | | [facility] | | [address] | | | - LABORATORY | | [...] | | | | | | | [place], | | | [...]
--- OUTSIDE RECORDS SUMMARY | ~2019-11-12 | XMS | Encounter Summary ---
Demographics + + + | Address | [address] [place] [address] | | | [place] [address] | + + + | Home Phone [...] [place] | | | | | [address] | | + + + + + Care Team Providers + +------+ + | Care Livestock Agent Name | Role | Phone | [...] as of this encounter Progress Notes Interface, Lease Broker In - 07/19/2006 3:05 AM PDTCLINIC DATE: 06/13/2002 [facility] REFERRING PHYSICIAN: Eugene Vera D.O. [address] [place] [address] Mr. Sanchez is a new patient. He [...] proceed. Martell Allen M.D. ELIZABETH / KATTY [id number] / [id number] / [id number] / [id number] cc: Eugene Vera D.O. [address] [place] [id number] signed by Interface, Lease Broker In at 07/19/2006 3:0 5 AM PDTdocumented in this encounter Plan of Treatment Not on filedocumented as of this encounter Visit Diagnoses Not on filedocumented in this encounter
--- OUTSIDE RECORDS SUMMARY | ~2019-11-12 | XMS | Encounter Summary ---
Demographics + + + | Address | [address] | | | [place] [address] | + + + | Home Phone [...] Team Providers + +------+ + | Care Plasterer Foreman Name | Role | Phone | [...] | Refill | [facility] [place] | [place], | Medication Refill | | 2014 | | CARDIOLOGY [address] | [address] | | | | | [place], | [place], | | | | | [place] [address] | [place] [address] | | | | | [phone] | [phone] | | | | | | | [...] Dx); | | | | | [place] [address] | Presence of | | | | | [phone] | permanent cardiac | | | | [...] [place], | | | | | | [place] [address] | | | | | | [phone] | | | | | | | | +--------+ + + + + documented as of this encounter Visit Diagnoses Not on filedocumented in this encounter"
--- OUTSIDE RECORDS SUMMARY | ~2019-11-12 | XMS | Encounter Summary ---
Demographics + + + | Address | [address] | | | [place] [address] | + + + | Home Phone [...] Providers + +------+ + | Care Compliance Field Technician Name | Role | Phone [...] Telephone | [facility] [place] | Emmanuel Danile MD | Lab Order | | 2019 | | GASTROENTEROLOGY | [address], [place] | | | | | [address] [place] | [address] [place], [place] | | | | | [address] [place], [place] | [address] | | | | | [address] | | | | | | [phone] | | | +--------+ + + + [...] Dx); | | | | | [place] [address] | Presence of | | | | | [phone] | permanent cardiac | | | | [...] | | | | | | [place] [address] | | | | | | [phone] | | | | | | | | +--------+ + + + + documented as of this encounter Visit Diagnoses Not on filedocumented in this encounter"
--- OUTSIDE RECORDS SUMMARY | ~2019-11-12 | XMS | Encounter Summary ---
Demographics + + + | Address | [address] | | | [place] [address] | + + + | Home Phone [...] Providers + +------+ + | Care Campus Monitor Name | Role | Phone | [...] + + | 06/04/ | Hospital | [facility] | Saria[place], | Cervical spinal | | 2016 | Encounter | MED CTR XRAY [address] | Marietta Mason, BIKE SHOP MANAGER [address] | stenosis | | | | [place] | [id number] | | | | | [place] [address] | [place] [address] | | | | | [phone] | [phone] | | | | | | | [...] + + + +---------+ + + | [place]-3 Fatty | CAPS, one capsule by | [...] Dx); | | | | | [place] [address] | Presence of | | | | | [phone] | permanent cardiac | | | | [...] W | | | | | | [place], | | | | | | [place] [address] | | | | | | [phone] | | | | | | | [...]
--- OUTSIDE RECORDS SUMMARY | ~2019-11-12 | XMS | Encounter Summary ---
Demographics + + + | Address | [address] | | | [place] [address] | + + + | Home Phone [...] Providers + +------+ + | Care Children'S Service Supervisor Name | Role | Phone [...] Provider Unknown | | | | | [place], [place] | [phone] | | | | | [address] | | | | | | [phone] | | | +--------+ + + + [...] + + + +---------+ + + | Post-3 Fatty | CAPS, one capsule by [...] 2019 | Monitor | | MD Sim Clarence Kamas | Interrogation | | | | | [place], | (Primary Dx); | | | | | [place] [address] | Presence of | | | | | [phone] | permanent cardiac | | | | [...] | | | | | | [place], | | | | | | [place] [address] | | | | | | [phone] | | | | | | | [...]
--- OUTSIDE RECORDS SUMMARY | ~2019-11-12 | XMS | Encounter Summary ---
Demographics + + + | Address | [address] | | | [place] [address] | + + + | Home Phone [...] Providers + +------+ + | Care Pump Installation And Servicer Name | Role | Phone | + +------+ + PCP | Unavailable | + +------+ + Encounter Details +--------+ + + + + | Date | Type | Department | Care Team | Description | +--------+ + + + + | 05/13/ | [facility] | [facility] | Dom Graham, | | | 2010 | Encounter | MED CTR EMERGENCY | [address] | | | | | CENTER [address] | [place] | | | | | [place] | [address] | | | | | [address] | | | | | | [phone] | | | +--------+ + + + [...] 2019 | Monitor | | [address] | Interrogation | | | | | [place], | (Primary Dx); | | | | | [place] [address] | Presence of | | | | | [phone] | permanent cardiac | | | | [...] W | | | | | | [place], | | | | | | [place] [address] | | | | | | [phone] | | | | | | | [...] | | | | | the [facility] | | | | | | Access [...] ST. | [address] | [place], [place] | [phone] | | [facility] | | [address] | | | - LABORATORY | | | | + + + + + | [facility] | [address] | [place], [place] | | | [facility] | | [address] | | | - LABORATORY | | [...] + | [facility] | [address] | [place] | [phone] | | [facility] | | [address] | | | - LABORATORY | | | | + + + + + | [facility] | [address] | [place], [place] | | | [facility] | | [address] | | | - LABORATORY | | [...] + | [facility] | [address] | [place], [place] | [phone] | | [facility] | | [address] | | | - LABORATORY | | | | + + + + + | [facility] | [address] | [place], [place] | | | [facility] | | [address] | | | - LABORATORY | | [...] + | [facility] | [address] | [place], [place] | [phone] | | [facility] | | [address] | | | - LABORATORY | | | | + + + + + | [facility] | [address] | [place], [place] | | | [facility] | | [address] | | | - LABORATORY | | | | + + + + + XR Chest AP Portable (05/13/2011 3:01 PM PDT) + + | Specimen | + + | | + + + + + | Narrative | Performed At | + + + | [facility] Diagnostic Imaging Department | [facility] | | [address] [facility] | [facility] | | PORTABLE CHEST CLINICAL | [...] Transcribed Date/Time: | | | 05/13/2011 17:06 Gunner'S Mate M: <Electronically Signed | | | by Jama Solis MD> 05/13/112038 | | + + + + + | Procedure Note | + + | Kevin, Rad Conversion - 12/29/2013 3:12 PM [facility] | | Diagnostic Imaging Department [address] [place] [address] | | PORTABLE CHEST CLINICAL HISTORY: TACHYCARDIA. [...] 16:57 | |Transcribed Date/Time: 05/13/2011 17:06 | |Gunner'S Mate M: | |<Electronically Signed by Jama Solis MD> [...]
--- OUTSIDE RECORDS SUMMARY | ~2019-11-12 | XMS | Encounter Summary ---
Demographics + + + | Address | [address] | | | [place] [address] | + + + | Home Phone [...] Team Providers + +------+ + | Care Overnight Cashier Name | Role | Phone | [...] + + | 01/05/ | Office | [facility] | Silvia, | Pacemaker - | | 2018 | Visit | CARDIOLOGY [address] | [address] | Medtronic - [id number] | | | | [place], | [place], | [place] | | | | [place] [address] | [place] [address] | 06/14/2009 (Primary | | | | [phone] | [phone] | Dx); Chest pain, | | | [...] involving | | | | | | [place] coronary | | | | | | artery of [place] | | | | | | heart [...] of non-critical coronary artery d isease involving [place] coronary artery of [place] heart without angina pectoris, essential h ypertension, [...] pain. He went to the ER in [place] because th e NTG didn't relieved the pain. He was diagnosed with bronchitis. Otherwise he has had no ot her symptoms. He has had a good energy level. He tries to stay active. He has joined a [employer] gym and trying to exercise more often. [...] Preventative health care Coronary artery disease involving [place] coronary artery of [place] heart without angina pectoris Cannabis abuse, daily [...] by mouth every evening 90 tablet 0 [facility] Products (OSTEO BI-FLEX/5-LOXIN [...] 3RD DOSE, CALL 911 100 tablet 3 [place]-3 Fatty Acids (SALMON OIL-1000 PO) CAPS, one [...] reviewed during visit today primarily from [facility]: LIPID Lab Results Component Value [...] 131 (A) 10/18/[address] I [address] records from [facility] for office visit on 01/2017 [...] overload. 2. Non-critical Coronary artery disease involving [place] coronary a rtery of [place] heart without angina pectoris: A. Normal exercise [...] to go back in 3 days to [place] for an attempt of ablation under general [...] normal stable device function. Estimated remaining [facility] longevity is 3.5 years.. 5. [...] this chart may have been created with Happy [employer] Pal voice recognition software. Occasi onal wrong-word or [...] Dx); | | | | | [place] [address] | Presence of | | | | | [phone] | permanent cardiac | | | | [...] W | | | | | | [place], | | | | | | [place] [address] | | | | | | [phone] | | | | | | | [...] involving | | | | | | [place] coronary | | | | | | artery of [place] | | | | | | heart [...] SYDNI | | | | | | ([id number]) on 01/06/2018 | | | | | [...] + + | Coronary artery disease involving [place] coronary artery of [place] heart without | | angina pectoris | + + | Hyperlipidemia, mixed Mixed hyperlipidemia | + + | Hypertension, unspecified type | + + | Syncope, unspecified syncope type | + + | Ascending thoracic aortic aneurysm (HCC) Thoracic aneurysm without mention of rupture | + + documented in this encounter
--- OUTSIDE RECORDS SUMMARY | ~2019-11-12 | XMS | Encounter Summary ---
Demographics + + + | Address | [address] | | | [place] [address] | + + + | Home Phone [...] Providers + +------+ + | Care Cloth Worker Name | Role | Phone | [...] | | | | CENTER [address] | [place], [place] | insufficiency | | | | [place], [place] | [address] | | | | | [address] | | | | | | [phone] | | | +--------+ + + + [...] + + + +---------+ + + | [place]-3 Fatty | CAPS, one capsule by | [...] | | | | | | | #[id number], exp 07/2016 | | | | | [...] Interrogation | | | | | [place], | (Primary Dx); | | | | | [place] [address] | Presence of | | | | | [phone] | permanent cardiac | | | | [...] W | | | | | | [place], | | | | | | [place] [address] | | | | | | [phone] | | | | | | | | +--------+ + + + + documented as of this encounter Visit Diagnoses + + | Diagnosis | + + | Peripheral edema - Primary Edema | + + | Venous insufficiency Unspecified venous (peripheral) insufficiency | + + documented in this encounter
--- OUTSIDE RECORDS SUMMARY | ~2019-11-12 | XMS | Encounter Summary ---
Demographics + + + | Address | [address] | | | [place] [address] | + + + | Home Phone [...] | CARDIOLOGY [address] | [address] | Interrogation | | | | [place], | [place], | (Primary Dx); | | | | [place] [address] | [place] [address] | Pacemaker; | | | | [phone] | [phone] | Sinoatrial node | | | | [...] | | | | | [place], | (Primary Dx); | | | | | [place] [address] | Presence of | | | | | [phone] | permanent cardiac | | | | [...] W | | | | | | [place], | | | | | | [place] [address] | | | | | | [phone] | | | | | | | [...]
--- OUTSIDE RECORDS SUMMARY | ~2019-11-12 | XMS | Encounter Summary ---
Demographics + + + | Address | [address] | | | [place] [address] | + + + | Home Phone [...] Team Providers + +------+ + | Care Bench Worker Hollow Handle Name | Role | Phone | + +------+ + PCP | Unavailable | + +------+ + Encounter Details +--------+ + + + + | Date | Type | Department | Care Team | Description | +--------+ + + + + | 05/13/ | Hospital | [facility] | | | | 2007 | Encounter | MED CTR EMERGENCY | | | | | | [place] [address] | | | | | | [place] | | | | | | [address] | | | | | | [phone] | | | +--------+ + + + [...] Dx); | | | | | [place] [address] | Presence of | | | | | [phone] | permanent cardiac | | | | [...] | | | | | | [place], | | | | | | [place] [address] | | | | | | [phone] | | | | | | | | +--------+ + + + + documented as of this encounter Visit Diagnoses Not on filedocumented in this encounter"
--- OUTSIDE RECORDS SUMMARY | ~2019-11-12 | XMS | Clinical Summary ---
Demographics + + + | Address | [address] | | | [place] [address] | + + + | Home Phone [...] Providers + +------+ + | Care Leather Case Finisher Name | Role | Phone [...] | | + + + +---------+------+------+-------+ | [place]-3 Fatty | CAPS, one capsule by | [...] + | Overview: Lower back injury (From [facility]) 1980 1984 | + + + [...] hemostatic band, by Daljit [facility] on 07/21/2018 | | shows regadenoson [...] attenuation cannot | | completely be ruled out.[facility] 12/25/13, shows non critical coronary | | [...] | + + + + + | [facility] | 06/26/2013 | + + [...] | | CT Angiogram chest w/constrast 05/26/14 [facility] | + + + + [...] ventricular arrhythmia performed by Dr. Gambino at [facility] on 01/30/2013. Patient had spontaneous [...] back in 3 days to | | [place] for an attempt of ablation under [...] IMPLANTED GENERATOR | | Medtronic DDD [id number] [id number] 06/14/09 RV LEAD Medtronic Active | | Bipolar CapSureFix 4076 [id number] 06/14/09 A LEAD Medtronic | | Active Bipolar CapSurFix 4076 [id number] 06/14/09 | + + + +---+ | [...] | Heart Cath, 02/29/2012, LVEF is 65%, [facility], Daljit Singletary, | | [facility] Myocardial Gated Stress Test, 05/25/2009, EF 53 | | % during rest and 52% during stress. [facility], | | [place], [place].Persantine Sestamibi Stress Test, 06/14/2008, LVEF is | | 60%, [facility], Rashadotto SunshinenL 12/25/13, shows noncritical | | [...] Plan: Nonobstructive CAD noted | | on [facility] from 2013, no EKG changes, and negative [...] | | | | | unspecified ([facility]); | | | | | | Mixed [...] + + | Mother | | | [place] | | | | (Age | | [...] 2019 | Monitor | | [address] | Interrogation | | | | | [place], | (Primary Dx); | | | | | [place] [address] | Presence of | | | | | [phone] | permanent cardiac | | | | [...] [place], | | | | | | [place] [address] | | | | | | [phone] | | | | | | | [...] Left: | [facility] | | 09/27/ | [id number] | | - - [id number]: | | [employer]reter | [employer] | | 2020 | / | | Qty: 1 on 04/13/2019 by | | | - [place] | | | /[id number] | | Matthew Uriarte MD at | | | | | | 57 | | [facility] | | | | | | | | [facility] | | | | | | | [...] +--------+ +---------+--------+ | MEDICARE | MEDICA | [id number] | 01/21/20 | [phone] | | Medica | | | RE | | 01-Pre | 5 | | re | | | PART A | | sent | | | | | | AND B | | | | | | + +--------+ +--------+ +---------+--------+ | MEDICARE | MEDICA | [id number] | 01/21/20 | [phone] | | Medica | | | RE | | 01-Pre | 5 | | re | | | PART A | | sent | | | | | | AND B | | | | | | + +--------+ +--------+ +---------+--------+ | AARP | AARP | [id number] | | [phone] | | Indemn | | | MDCR | | 016-Pr | 0 | | ity | | | SUPPL | | esent | | | | + +--------+ +--------+ +---------+--------+ | AARP | AARP | [id number] | 11/22/19 | [phone] | | Indemn [...] Person | Self | [birth year] | [address] | | Kirk | cristo/Per | | 1959 | [phone] | [place] | | | roxanne | | | 8 (Home) | [address] | + +--------+ +--------+ + + | Moe Sanchez | Person | Self | [birth year] | | [address] | | Kirk | al/Fam | | 1960 | [phone] | [place] | | | [place] | | | 8 (Home) | [address] | + +--------+ +--------+ + + | Moe Sanchez | Dave | Self | [birth year] | [address] | | Kirk | Alliance Party | | [id number] | [phone] | [address] [place] | | | [place] | | | 3 ([place]) | [address] | | | ity | | | | | + +--------+ +--------+ + + Advance Directives + + + + + | Type | Date Recorded | Patient | Explanation | | | | Cage Unloader | | + + + + + | Power of | | | | | Manufacturing Worker | | | | + + + [...]
--- OUTSIDE RECORDS SUMMARY | ~2019-11-12 | XMS | Encounter Summary ---
Demographics + + + | Address | [address] | | | [place] [address] | + + + | Home Phone [...] 2012 | | CARDIOLOGY [address] | STANDPIPE TENDER [address] | | | | | [place], | [place], [place] | | | | | [place] [address] | [address] | | | | | [phone] | | | +--------+ + + + [...] Dx); | | | | | [place] [address] | Presence of | | | | | [phone] | permanent cardiac | | | | [...] W | | | | | | [place], | | | | | | [place] [address] | | | | | | [phone] | | | | | | | | +--------+ + + + + documented as of this encounter Visit Diagnoses Not on filedocumented in this encounter"
--- OUTSIDE RECORDS SUMMARY | ~2019-11-12 | XMS | Encounter Summary ---
Demographics + + + | Address | [address] | | | [place] [address] | + + + | Home Phone [...] Providers + +------+ + | Care Furniture Assembly Supervisor Name | Role | Phone [...] + + | 01/25/ | Office | [facility] | Daljit Singletary, | Other chest pain | | 2012 | Visit | CARDIOLOGY [address] | [address] | (Primary Dx); PVC's | | | | [place], | [place], | (premature | | | | [place] [address] | [place] [address] | ventricular | | | | [phone] | [phone] | contractions) | | | | | [...] note, lorraine painting has appointment to see affiliate marketing specialist for PVCs ablations consultation on January [...] tablet Take 1,000 mg by mouth Daily. [place]-3 Fatty Acids (SALMON OIL-1000 PO) CAPS, one [...] tablet Take 1,000 mg by mouth Daily. [place]-3 Fatty Acids (SALMON OIL-1000 PO) CAPS, one [...] Dx); | | | | | [place] [address] | Presence of | | | | | [phone] | permanent cardiac | | | | [...] | | | | | | [place], | | | | | | [place] [address] | | | | | | [phone] | | | | | | | [...]
--- OUTSIDE RECORDS SUMMARY | ~2019-11-12 | XMS | Encounter Summary ---
Demographics + + + | Address | [address] | | | [place] [address] | + + + | Home Phone [...] Providers + +------+ + | Care Staffing Account Manager Name | Role | Phone | + +------+ + | Kirk French MD | PCP | | + +------+ + Encounter Details +--------+ + + + + | Date | Type | Department | Care Team | Description | +--------+ + + + + | 01/05/ | Hospital | [facility] | Emmanuel Daniel MD | Functional diarrhea | | 2019 | Encounter | MED CTR MP INTRA OP | [address], [place] | (Primary Dx); Weight | | | | [address] | [address] [place], [place] | loss | | | | [place], [place] | [address] | | | | | [address] | | | | | | [phone] | | | +--------+ + + + [...] for a few hours. Date Last Reviewed: 09/22/201619994533-1029 [facility]. [address] [place] [address], [place] [address]. All righ ts reserved. This information is [...] vomiting, or vomiting blood Date Last Reviewed: 05/22/201619997965-7254 [facility]. [address] [place] [address]. All [facility]omb[facility] ts reserved. This information is not intended [...] You can't be awakened Date Last Reviewed: 09/08/201619993324-5397 [facility]. [address] [place] [address], [place] [address]. All righ ts reserved. This information is [...] Dx); | | | | | [place] [address] | Presence of | | | | | [phone] | permanent cardiac | | | | [...] W | | | | | | [address] [place], | | | | | | [place] [address] | | | | | | [phone] | | | | | | | [...] | REFERENCE LAB | | [place] [id number] Floor Tech: Miguel Galarza MD, Phone: | ARSH - IKNA | | [phone] | | + + + + + + + + | Performing | Address | City/State/Zipcode | Phone Number | | Organization | | | | + + + + + | REFERENCE LAB | [address] | [place] [address] | [phone] | | [facility] | Drive [...] 100-200, | REFERENCE LAB | | [place] [id number] Floor Tech: Miguel Galarza MD, Phone: | ARSH CASTANON | | [phone] | | + + + + + + + + | Performing | Address | City/State/Zipcode | Phone Number | | Organization | | | | + + + + + | REFERENCE LAB | [address] | [place] [address] | [phone] | | ARSH CASTANON | Drive [facility] | | | + + [...] [address] | [place] | [phone] | | [facility] | | [address] | | | - LABORATORY | | [...] [address] | [place] | [phone] | | [facility] | | [address] | | | - LABORATORY | | [address] | [place] | [phone] | | [facility] | | [address] | | | - LABORATORY | | [...] [address] | [place] | [phone] | | [facility] | | [address] | | | - LABORATORY | | [...] [address] | [place] | [phone] | | [facility] | | [address] | | | - LABORATORY | | [...] ST. | [address] | [place], [place] | [phone] | | [facility] | | [address] | | | - LABORATORY | | | | + + + + + DAVIAN (01/05/2019 8:36 AM PST) + + | Specimen | + + | | + + + + -+ | Narrative | Performed At | + + -+ | | [facility] | | GastroenterologyPatient Name: Moe Venegas Date: | PROVATION | | 01/05/2019 8:36 AMMRN: [id number] #: [id number] of : | | | 9Admit Type: AmbulatoryAge: 58Room: [facility] 01Gender: MaleNote | | | Status: FinalizedAttending MD: Emmanuel Daniel , [facility]: | | | Upper GI endoscopyIndications: Diarrhea, Weight | | | lossProviders: Emmanuel Daniel MD, Heidi Akinsfield, | | | RN, Kim Hicks, Casino Cage Cashier, | | | Jarett Barakat MD (Anesthesia [...] physician, the nurse, the anesthesiologist and the greenhouse technician | | | in the endoscopy [...] | | Imaging was performed using the [employer] | | | Endoscopy (FICE) [...] Scope In: 8:43:57 AMScope Out: 8:49:50 AM [facility]. | | | [facility], [address] [place] [address] | | | [phone] | | |Recommendation: | | | - [...] |Scope Out: 8:49:50 AM | | | [facility], [address], [place] | | | [address] | | + + -+ + +---------+ [...] | PROVATION | | 01/05/2019 8:36 AMMRN: [id number] #: [id number] of : | | | 9Admit Type: AmbulatoryAge: 58Room: [facility] 01Gender: MaleNote | | | Status: FinalizedAttending MD: Emmanuel Daniel , [facility]cedure: | | | ColonoscopyIndications: Clinically significant diarrhea of | | | unexplained origin, Weight lossProviders: | | | Emmanuel Daniel MD, Heidi An RN, [place] | | | Fiorella Hicks, Casino Cage Cashier, Jarett Alejo | | | MD Roshni [...] | | | the anesthesiologist and the greenhouse technician in the endoscopy suite. | | [...] AMScope Out: | | | 9:06:28 AM [facility], [address] [place] [address], | | | [place] [address] | | | - Discharge patient to [...] |Scope Out: 9:06:28 AM | | | [facility], [address] [place] [address], [place], [place] | | | [address] | | + + -+ + +---------+ [...] | | | (atherosclerotic heart disease of [place] coronary artery without | | | angina [...] chronic or | | | microscopic colitis. BES:[facility]:C3NR GROSS DESCRIPTION: A. The | | | specimen, labeled "Laura, duodenal biopsy" is received in formalin | | | and consists of seven 0.1-0.5 cm lin fragments. Entirely submitted in | | | (A1). B. The specimen, labeled "[place], right colon" is received | | | in formalin and consists of six 0.2-0.3 cm lin fragments. Entirely | | | submitted in (B1). C. The specimen, labeled "[place], left colon" | | | is received in formalin and consists of six 0.2-0.3 cm lin-pink | | | fragments. Entirely submitted in (C1). am:AMB:portillo PERFORMING | | | LABORATORY: The technical component was performed by [facility] | | | [facility], [address] [place] [address] (Machine Cleaner: | | | Kailey Stafford MD; CLIA# [id number]). Professional interpretation was | | | performed by [facility], [facility], [address] | | | [address] [place] [address] (Machine Cleaner: Ishaan Dao M.D.; LAYNE#: [id number]). Diagnostician: Ishaan Bay | Sylwia WINKLER Pathologist [...] | | | Starting [facility] 01/05/19 at 0924, | | | [...] | | PRN, Nausea, Starting [facility] 01/05/19 | | | at 0924, For 1 dose, | | | Recovery/Phase I | | + +---+ | | | + +---+ documented in this encounter
--- OUTSIDE RECORDS SUMMARY | ~2019-11-12 | XMS | Encounter Summary ---
Demographics + + + | Address | [address] | | | [place] [address] | + + + | Home Phone [...] Providers + +------+ + | Care Flight Engineer Instructor Name | Role | Phone | + +------+ + PCP | Unavailable | + +------+ + Encounter Details +--------+ + + + + | Date | Type | Department | Care Team | Description | +--------+ + + + + | 08/17/ | [facility] | [facility] | Evan Gandara MD | | | 2005 | Encounter | MED CTR LABORATORY | [address] [facility] | | | | | [address] | [place] | | | | | [place] | [address] | | | | | [address] | | | | | | [phone] | | | +--------+ + + + [...] Dx); | | | | | [place] [address] | Presence of | | | | | [phone] | permanent cardiac | | | | [...] | | | | | | [place] [address] | | | | | | [phone] | | | | | | | | +--------+ + + + + documented as of this encounter Visit Diagnoses Not on filedocumented in this encounter"
--- OUTSIDE RECORDS SUMMARY | ~2019-11-12 | XMS | Encounter Summary ---
Demographics + + + | Address | [address] | | | [place] [address] | + + + | Home Phone [...] Provider Unknown | | | | | [place], [place] | [phone] | | | | | [address] | | | | | | [phone] | | | +--------+ + + + [...] + + + +---------+ + + | Varna-3 Fatty | CAPS, one capsule by | [...] Dx); | | | | | [place] [address] | Presence of | | | | | [phone] | permanent cardiac | | | | [...] | | | | | [place], | | | | | | [place] [address] | | | | | | [phone] | | | | | | | [...]
--- OUTSIDE RECORDS SUMMARY | ~2019-11-12 | XMS | Encounter Summary ---
Demographics + + + | Address | [address] | | | [place] [address] | + + + | Home Phone [...] Team Providers + +------+ + | Care Naphthalene Operator Name | Role | Phone | [...] Refill | | 2012 | | [facility] [place] | DO [address] | | | | | [address] | [place] | | | | | [place] | [address] | | | | | [address] | | | | | | [phone] | | | +--------+--------+ + + + [...] | 2018 | Monitor | | [address] | Interrogation | | | | | [place], | (Primary Dx); | | | | | [place] [address] | Presence of | | | | | [phone] | permanent cardiac | | | | [...] | | | | | | [place] [address] | | | | | | [phone] | | | | | | | | +--------+ + + + + documented as of this encounter Visit Diagnoses Not on filedocumented in this encounter"
--- OUTSIDE RECORDS SUMMARY | ~2019-11-12 | XMS | Encounter Summary ---
Demographics + + + | Address | [address] | | | [place] [address] | + + + | Home Phone [...] Providers + +------+ + | Care Bell Cleaner Name | Role | Phone | [...] CARDIOLOGY [address] | MD [address] [place] | Dx); SINUS | | | | [place], | [place], | [place] | | | | [place] [address] | [place] [address] | | | | | [phone] | [phone] | | | | | | | [...] Dx); | | | | | [place] [address] | Presence of | | | | | [phone] | permanent cardiac | | | | [...] W | | | | | | [place], | | | | | | [place] [address] | | | | | | [phone] | | | | | | | | +--------+ + + + + documented as of this encounter Visit Diagnoses + + | Diagnosis | + + | Chest pain - Primary Chest pain, unspecified | + + | SINUS BRADYCARDIA Sinoatrial node dysfunction | + + documented in this encounter
--- OUTSIDE RECORDS SUMMARY | ~2019-11-12 | XMS | Encounter Summary ---
Demographics + + + | Address | [address] | | | [place] [address] | + + + | Home Phone [...] Providers + +------+ + | Care Tool Shaper Set Up Operator Name | Role [...] [address] | | | | | [address] | [place] | | | | | [phone] | [address] | | | | | | | [...] 2018 | Monitor | | MD [address] [place] | Interrogation | | | | | [place], | (Primary Dx); | | | | | [place] [address] | Presence of | | | | | [phone] | permanent cardiac | | | | [...] | | | | | | [place], | | | | | | [place] [address] | | | | | | [phone] | | | | | | | | +--------+ + + + + documented as of this encounter Visit Diagnoses Not on filedocumented in this encounter"
--- OUTSIDE RECORDS SUMMARY | ~2019-11-12 | XMS | Encounter Summary ---
Demographics + + + | Address | [address] | | | [place] [address] | + + + | Home Phone [...] Team Providers + +------+ + | Care Toolsmith Name | Role | Phone | + [...] | CARDIOLOGY [address] | MD [address] [place] | | | | | [place], | [place], | | | | | [place] [address] | [place] [address] | | | | | [phone] | [phone] | | | | | | | [...] Dx); | | | | | [place] [address] | Presence of | | | | | [phone] | permanent cardiac | | | | [...] | | | | | | [place] [address] | | | | | | [phone] | | | | | | | | +--------+ + + + + documented as of this encounter Visit Diagnoses Not on filedocumented in this encounter"
--- OUTSIDE RECORDS SUMMARY | ~2019-11-12 | XMS | Encounter Summary ---
Demographics + + + | Address | [address] [place] [address] | | | [place] [address] | + + + | Home Phone [...] [place] | | | | | [address] | | + + + + + Care Team Providers + +------+ + | Care Clinical Research Tech Name | Role | Phone | [...] | | | | | [facility] | [place], [place] | for Health | | | | | C | [address] | and Healing, | | | | | ECHOCARDIOGR | Phone: | Building [address] | | | | | AM, ADULT | [phone] | [place], [place] | | | | | | Fax: | [address] | | | | | | [phone] | Phone: | | | | | | | [phone] | +--------+--------+ + + + + Reason [...] | | | | | | | [place] [address] | | | | | | | Phone: | | | | | | | [phone] | | | | | | | Fax: | | | | | | | [phone] | | +--------+--------+ + + + + Encounter Details +--------+---------+ + + + | Date | Type | Department | Care Team | Description | +--------+---------+ + + + | 02/03/ | Office | Cardiology General | Arlette Drew, | Chest pain (Primary | | 2010 | Visit | at [facility] [address] | MD | Dx); Bradycardia; | | | | [address] Mailcode: | | Pacemaker | | | | [address] | | | | | | Health and Healing, | | | | | | Building | | | | | | Floor [place], [place] | | | | | | [address] | | | | | | [phone] | | | +--------+---------+ + + + [...] per Dr. Drew's note. Farooq Jamil DO Special Librarian Clinical beauty culturist apprentice/ Division of Cardiovascular Medicine Yajaira Borges, [place] - 02/09/2011 12:59 PM PDT PACEMAKER HISTORY Primary Care Provider: Darion Holden DO Occup Therapist: Arlette Drew MD Moe Sanchez is a [...] chamber permanent pacemaker implantation on 06/[place]/09 [place], Chronic smoker, mild DIDIER, bip olar disorder with anxiety who presents for second opinion regarding his syncopal episodes. Pt. started noticing dizzy spells and episodes of syncope about 3 years ago , pacemaker was put at the recommendation of Occup Therapist Dr. Singletary from [place]. [place]. Pt. states lala bhatti was put>1 [...] form tilt table testing but NA at [facility] May need to involve endocrine and EP [...] Dr. Omero DREW MD CARDIOLOGY - GENERAL [address] Mailcode: [facility], 9th Floor [facility] [address] documented in this en counter [...] ([address] [facility]) | [facility] | | [facility] [address] [address] [facility] | REGIONAL | | [place] [address] | LABORATORY | + + + + + + + + | Performing | Address | City/State/Zipcode | Phone Number | | Organization | | | | + + + + + | [facility] | [address] | [place] [address] | | | LABORATORY | | | [...] RLB ([address] [facility]) | | | [facility] [place] [address] | | | [place] [address] | | + + + + + + + + | Performing | Address | City/State/Zipcode | Phone Number | | Organization | | | | + + + + + | [facility] | [address] | [place] [address] | | | LABORATORY | | | [...] | | | DEPARTMENT | | | RWANDAN | | | OF | | | [...] | + + + + + | [facility] DEPARTMENT | [address] | [place] [address] | | | PATHOLOGY | [address] [...] DEPT OF | [address] | [place], [place] | | | CARDIOLOGY | [address] | [address] | | + + + + + [...] DEPT OF | [address] | [place], [place] | | | CARDIOLOGY | [address] | [address] | | + + + + + [...] + + + | Please click | [facility] DEPT OF | | on view image for the detailed interpretation from [facility] results. | CARDIOLOGY | + + + + + + + + | Performing | Address | City/State/Zipcode | Phone Number | | Organization | | | | + + + + + | [facility] DEPT OF | [address] | [place], [place] | | | CARDIOLOGY | [address] | [address] | | + + + + + documented in this encounter Visit Diagnoses + + | Diagnosis | + + | Chest pain - Primary Chest pain, unspecified | + + | Bradycardia Other specified cardiac dysrhythmias | + + | Pacemaker Cardiac pacemaker in situ | + + documented in this encounter
--- OUTSIDE RECORDS SUMMARY | ~2019-11-12 | XMS | Encounter Summary ---
Demographics + + + | Address | [address] | | | [place] [address] | + + + | Home Phone [...] Team Providers + +------+ + | Care Collections Agent Name | Role | Phone | + +------+ + PCP | Unavailable | + +------+ + Encounter Details +--------+ + + + + | Date | Type | Department | Care Team | Description | +--------+ + + + + | 06/23/ | [facility] | [facility] | Arthur Page MD | | | 2007 - | Encounter | MED CTR MED ONC | [address] [facility] | | | | | [address] [place] | [place] | | | 06/25/ | | [place] [address] | [address] | | | 2007 | | [phone] | | | +--------+ + + + [...] Interrogation | | | | | [place], | (Primary Dx); | | | | | [place] [address] | Presence of | | | | | [phone] | permanent cardiac | | | | [...] W | | | | | | [place], | | | | | | [place] [address] | | | | | | [phone] | | | | | | | | +--------+ + + + + documented as of this encounter Visit Diagnoses Not on filedocumented in this encounter"
--- OUTSIDE RECORDS SUMMARY | ~2019-11-12 | XMS | Encounter Summary ---
Demographics + + + | Address | [address] | | | [place] [address] | + + + | Home Phone [...] Providers + +------+ + | Care Junior Account Manager Name | Role | Phone | + +------+ + PCP | Unavailable | + +------+ + Encounter Details +--------+ + + + + | Date | Type | Department | Care Team | Description | +--------+ + + + + | 08/26/ | Hospital | [facility] | | | | 2009 | Encounter | MED CTR LABORATORY | | | | | | [address] | | | | | | [place] | | | | | | [address] | | | | | | [phone] | | | +--------+ + + + [...] Dx); | | | | | [place] [address] | Presence of | | | | | [phone] | permanent cardiac | | | | [...] | | | | | | [place], | | | | | | [place] [address] | | | | | | [phone] | | | | | | | | +--------+ + + + + documented as of this encounter Visit Diagnoses Not on filedocumented in this encounter"
--- OUTSIDE RECORDS SUMMARY | ~2019-11-12 | XMS | Encounter Summary ---
Demographics + + + | Address | [address] | | | [place] [address] | + + + | Home Phone [...] Team Providers + +------+ + | Care Pillow Cleaner Name | Role | Phone | [...] + + | 04/10/ | Telephone | [facility] | Matthew Uriarte | Surgery Appointment | | 2019 | | [address] | MD Tawanna [address] | | | | | [place], [place] | [place], [place] | | | | | [address] | [address] | | | | | [phone] | | | +--------+ + + + [...] | | | | | [address] [place], | (Primary Dx); | | | | | [place] [address] | Presence of | | | | | [phone] | permanent cardiac | | | | [...] | | | | | | [place] [address] | | | | | | [phone] | | | | | | | | +--------+ + + + + documented as of this encounter Visit Diagnoses Not on filedocumented in this encounter"
--- OUTSIDE RECORDS SUMMARY | ~2019-11-12 | XMS | Encounter Summary ---
Demographics + + + | Address | [address] | | | [place] [address] | + + + | Home Phone [...] Providers + +------+ + | Care Sterile Proc Tech Name | Role | Phone | [...] [place] | | | | | [address] [place], [place] | [address] | | | | | [address] | | | | | | [phone] | | | +--------+ + + + [...] Dx); | | | | | [place] [address] | Presence of | | | | | [phone] | permanent cardiac | | | | [...] W | | | | | | [place], | | | | | | [place] [address] | | | | | | [phone] | | | | | | | [...]
--- OUTSIDE RECORDS SUMMARY | ~2019-11-12 | XMS | Encounter Summary ---
Demographics + + + | Address | [address] | | | [place] [address] | + + + | Home Phone [...] + | 10/04/ | Telephone | [facility] | Daljit Singletary, | Other (Records sent) | | 2012 | | CARDIOLOGY [address] | MD [address] [place] | | | | | [place], | [place], | | | | | [place] [address] | [place] [address] | | | | | [phone] | [phone] | | | | | | | [...] Dx); | | | | | [place] [address] | Presence of | | | | | [phone] | permanent cardiac | | | | [...] | | | | | | [place] [address] | | | | | | [phone] | | | | | | | | +--------+ + + + + documented as of this encounter Visit Diagnoses Not on filedocumented in this encounter"
--- OUTSIDE RECORDS SUMMARY | ~2019-11-12 | XMS | Encounter Summary ---
Demographics + + + | Address | [address] | | | [place] [address] | + + + | Home Phone [...] | | | CENTER [address] | [address] [place] | | | | | [place], [place] | [place] [address] | | | | | [address] | [phone] | | | | | [phone] | | | +--------+ + + + [...] sent through Care Everywhere.Diarrhea, Unkno wn Cause (Lao)documented in this encounter Medications at Time [...] | 11/20/ | Implant | Cardiology | SunshinecherelleShaistakenneth, | Remote Device | | 2018 | Monitor | | [address] [place] | Interrogation | | | | | [place], | (Primary Dx); | | | | | [place] [address] | Presence of | | | | | [phone] | permanent cardiac | | | | [...] | | | | | | [place], | | | | | | [place] [address] | | | | | | [phone] | | | | | | | [...] | | | 14:16? | | | NATAEN | | | , | | | FREDER | | | ICK | | | W?MRN: | | | | | | [id number] | | | [id number] | | | riteri | | | [...] | | | St. | | | [facility] | | | y | | | [...] | | | St. | | | [facility] | | | y | | | [...] | | | St. | | | [place] | | | y H. | | [...] | | | St. | | | [place] | | | y H. | | [...] | | | M.D. | | | Warehouse Order Filler | | | al | | | [...] | | | ent/60 | | | [id number] | | | -[id number] | | | [...] Done | | [facility] | | | Tamara | | | [place] | | | Top Tube | [...] [address] | [place] | [phone] | | [facility] | | [address] | | | - LABORATORY | | [...] [address] | [place] | [phone] | | [facility] | | [address] | | | - LABORATORY | | [...] [facility] | | | | | | [facility] | | | | | | MEDICAL | | | | | | [place] - | | | | | | LABORATORY | | + +-------+ + + + + + | Specimen | + + | Blood | + + + + + + + | Performing | Address | City/State/Zipcode | Phone Number | | Organization | | | | + + + + + | [facility] | [address] | [place] | [phone] | | [facility] | | [address] | | | - LABORATORY | | [...] + | [facility] | [address] | [place] | [phone] | | [facility] | | [address] | | | - LABORATORY | | | | + + + + + Lipase (05/09/2019 4:42 PM PDT) + +-------+ + + + | Component | Value | Ref Range | Performed | Pathologist | | | | | At | Signature | + +-------+ + + + | Lipase | 38 | 12 - 53 U/L | [facility] | | | | | | STJuan [...] [address] | [place] | [phone] | | [facility] | | [address] | | | - LABORATORY | | [...] 10 | 9 - 23 mg/dL | [facility] | | | | | | [place] | | | | | | MEDICAL | | | | | | CENTER - | | | | | | LABORATORY | | + + + + + + | Creatinine | 0.96 | 0.70 - 1.30 | [facility] | | | | | mg/dL | [place] | | | | | | MEDICAL | | | | | | CENTER - | | | | | | LABORATORY | | + + + + + + | eGFR if not | >60Comment: GLOMERULAR | >=60 | [facility] | | | | FILTRATION | mL/min/1.73m2 | [place] | | | BAN[place] | RATE,ESTIMATED | | MEDICAL | | | | mL/min/1.44t3Tbyv than | | CENTER - | | [...] [address] | [place] | [phone] | | [facility] | | [address] | | | - LABORATORY | | [...] | nRBC | | K/uL | [facility] | | | | | | [...] [address] | [place] | [phone] | | [facility] | | [address] | | | - LABORATORY | | [...] - 1.030 | [facility] | | | [place] | | | [facility] [place] | | [...] [address] | [place] | [phone] | | [facility] | | [address] | | | - LABORATORY | | [...]
--- OUTSIDE RECORDS SUMMARY | ~2019-11-12 | XMS | Encounter Summary ---
Demographics + + + | Address | [address] | | | [place] [address] | + + + | Home Phone [...] Providers + +------+ + | Care Customer Liaison Name | Role | Phone | [...] + + | 10/01/ | Office | [facility] | Mary Bradshaw | Injury of left foot, | | 2013 | Visit | CARE [address] | Guy Larkin MD | initial encounter | | | | [place] | [address] | (Primary Dx) | | | | [address] | [place] | | | | | [phone] | [address] | | | | | | | [...] half hours. He states he needs to olive picker hi s spouse. I provided patient with Dr. Bradley's card so he may contact us for results. Patient's best phone number: [phone] Renetta Lockwood RN ary Bradshaw MD - [...] Dx); | | | | | [place] [address] | Presence of | | | | | [phone] | permanent cardiac | | | | [...] | | | | | | [place] [address] | | | | | | [phone] | | | | | | | [...] + | MISCELLANEOUS LAB | | | [phone] | + +---------+ + + | MISCELANIOUS LAB | | | [phone] | + +---------+ + + documented in this encounter Visit Diagnoses + + | Diagnosis | + + | Injury of left foot, initial encounter - Primary | + + documented in this encounter
--- OUTSIDE RECORDS SUMMARY | ~2019-11-12 | XMS | Encounter Summary ---
Demographics + + + | Address | [address] [place] [address] | | | [place] [address] | + + + | Home Phone [...] [place] | | | | | [address] | | + + + + + Care Team Providers + +------+ + | Care Supervisor Cell Room Name | Role | Phone | [...] | | | | | Unintentiona | [place], [place] | | | | | | l weight | [address] | | | | | | loss | Phone: | | | | | | Procedures | [phone] | | | | | | CONSULT TO | Fax: | | | | | | NON - IVETTE | [phone] | | | | | | PROVIDER [...] 10/18/ | Telephone | [facility] | Bridgtete Rios, | Other (stool tests | | 2019 | | Center at [facility] [address] | MD [address] | normal, recommend | | | | [address] | [place], [place] | hyoscyamine) | | | | Mailcode: [place] | [address] | | | | | for Health and | [phone] | | | | | [facility], [facility] [address] | | | | | | [place], [place] | | | | | | [address] | | | | | | [phone] | | | +--------+ + + + [...]
--- OUTSIDE RECORDS SUMMARY | ~2019-11-12 | XMS | Encounter Summary ---
Demographics + + + | Address | [address] | | | [place] [address] | + + + | Home Phone [...] Providers + +------+ + | Care Corporate Strategy Associate Name | Role | Phone | + +------+ + PCP | Unavailable | + +------+ + Encounter Details +--------+ + + + + | Date | Type | Department | Care Team | Description | +--------+ + + + + | 11/12/ | Hospital | [facility] | | | | 1994 | Encounter | MED CTR GENERIC OP | | | | | | CONV DEPT [address] | | | | | | [place], | | | | | | [place] [address] | | | | | | [phone] | | | +--------+ + + + [...] Dx); | | | | | [place] [address] | Presence of | | | | | [phone] | permanent cardiac | | | | [...] W | | | | | | [place], | | | | | | [place] [address] | | | | | | [phone] | | | | | | | | +--------+ + + + + documented as of this encounter Visit Diagnoses Not on filedocumented in this encounter"
--- OUTSIDE RECORDS SUMMARY | ~2019-11-12 | XMS | Encounter Summary ---
Demographics + + + | Address | [address] | | | [place] [address] | + + + | Home Phone [...] Providers + +------+ + | Care Office Technology Instructor Name | Role | Phone | [...] | | | pain | [address] | [address] | | | | | Procedures | [place] | [place], | | | | | [place] Nuclear | [place] | [place] | | | | | Stress Test | [address] | [address] | | | | | (Vasodilator | Phone: | Phone: | | | | | ) CHG | [phone] | [phone] | | | | | MYOCARDIAL | Fax: | Fax: | | | | | SPECT | [phone] | [phone] | | | | | MULTIPLE | | | | | | | STUDIES | | | +--------+--------+ + + + + Encounter Details +--------+ + + + + | Date | Type | Department | Care Team | Description | +--------+ + + + + | 12/06/ | Hospital | [facility] | Geri Angel, | Other chest pain | | 2013 | Encounter | MED CTR XRAY [address] | 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 [address] | | | | | [address] [place] | [place] | | | | | [place] [address] | [address] | | | | | [phone] | | | +--------+ + + + [...] + + + +---------+ + + | [place]-3 Fatty | CAPS, one capsule by | [...] 2019 | Monitor | | MD [address] | Interrogation | | | | | [place], | (Primary Dx); | | | | | [place] [address] | Presence of | | | | | [phone] | permanent cardiac | | | | [...] | | | | | | [place] [address] | | | | | | [phone] | | | | | | | [...] Performed At | + + + | [facility] Diagnostic Imaging | SWE[place] | | Department [address] [facility] | [facility] | | [ rep ct street[address]] [ rep [facility] | | st zip] Signed | - IMAGING | | | | | Patient Name: MOE GAY | | | Physician: JACKLYN : 1960 Age: 53 Sex: M Unit | | | #: [id number] Exam Date: 12/06/13 Location: | | | [facility] [place] #: [id number] Page: | | | %(RAD)RES..mtdd.print.filter("pg") of %(RAD) | | | RES..mtdd.print.filter("tpg") | | | | | | Accession Number: [id number] | | | PERSANTINE SESTAMIBI STRESS TEST, [...] Transcribed Date/Time: 12/07/2013 08:18 | | | Mixer Blender: <<Signature on File>> | | | | | | Daljit Singletary MD [facility] FASE12/07/13 1321 <Electronically signed | | | by Daljit Singletary MD, FACC, FACP, FASE, FASNC> Daljit | | | MD CLEOPATRA Singletary 12/07/13 0701 Mixer Blender: Jessica | | | Jufvclkolcgqo51/16/14 0818 PARISA Garcia | | + + + + + + + + | Performing | Address | City[facility] | Phone Number | | Organization | | | | + + + + + | [address] | [address] | [place] | [phone] | | [facility] | | [address] | | | - IMAGING | | | | + + + + + documented in this encounter Visit Diagnoses + + | Diagnosis | + + | Other chest pain | + + documented in this encounter
--- OUTSIDE RECORDS SUMMARY | ~2019-11-12 | XMS | Encounter Summary ---
Demographics + + + | Address | [address] | | | [place] [address] | + + + | Home Phone [...] Providers + +------+ + | Care Customer Program Manager Name | Role | Phone [...] + + | 07/12/ | Office | [facility] | Michael Amanda, | Preventative health | | 2013 | Visit | [facility]IC[facility] [place] | DO [address] | care (Primary Dx); | | | | [address] | [place], [place] | Prostate cancer | | | | [place], [place] | [address] | screening; | | | | [address] | | Hypercholesterolemia | | | | [phone] | | ; Hypertension; | | | [...] clear cause was found. He has seen telescope operator and has a rechec k plan. [...] | Monitor | | MD Sim [place] | Interrogation | | | | | [place], | (Primary Dx); | | | | | [place] [address] | Presence of | | | | | [phone] | permanent cardiac | | | | [...] W | | | | | | [place], | | | | | | [place] [address] | | | | | | [phone] | | | | | | | [...] - Primary Routine general medical examination at [facility] | | care facility | [...]
--- OUTSIDE RECORDS SUMMARY | ~2019-11-12 | XMS | Encounter Summary ---
Demographics + + + | Address | [address] | | | [place] [address] | + + + | Home Phone [...] Team Providers + +------+ + | Care Granulator Machine Operator Name | Role | Phone [...] | | | [place] | [place] [address] | | | | | | [address] | Phone: | | | | | | Phone: | [phone] | | | | | | [phone] | Fax: | | | | | | Fax: | [phone] | | | | | | [phone] | | +--------+ + + + + [...] | diurnal enuresis | | | | [place], [place] | [place], [place] | (Primary Dx); BPH | | | | [address] | [address] | with | | | | [phone] | | obstruction/lower | | | | [...] and had his license revoked by the [facility]. He has ed marijuana for his chronic [...] CONDS CLASSIFIED ELSEWHERE (12/15/2010); Ulcerative colitis ([facility]); Ches t pain; SINUS BRADYCARDIA; HEPATITIS B; PUD; FATTY LIVER DISEASE; SUBSTANCE ABUSE, MULTIPLE; Preventative health care (06/26/2013); Bladder troubles; Tuberculosis; Anginal pain ([facility]); St roke ([facility]); Prostate troubles; and Neurological disorder. [...] needed for Chest pain. 25 tablet 12 [place]-3 Fatty Acids (SALMON OIL-1000 PO) CAPS, [...] Date/Time: 04/22/2012 16:56 Transcribed Date/Time: 04/22/2012 17:32 Table Cover Folder: <Electronically Signed by Jama Solis MD> 04/23/12 [...] Date/Time: 04/23/2012 10:54 Transcribed Date/Time: 04/23/2012 11:06 Table Cover Folder: <Electronically Signed by Jama Solis MD> 04/24/12 5320 IMPRESSION: 1. Nocturnal and diurnal enuresis. I [...] bladder, still believe that the recommendations from [facility] neurosurgeon, Dr. Demarco, on 03/13/2014 would [...] have not thoroughly proofread this note, and consumer sales representative erro rs may occur. CC: Kirk [...] Dx); | | | | | [place] [address] | Presence of | | | | | [phone] | permanent cardiac | | | | [...] W | | | | | | [place], | | | | | | [place] [address] | | | | | | [phone] | | | | | | | [...] 1.001 - 1.030 | | | | [place], | | | | | | UA, [...]
--- OUTSIDE RECORDS SUMMARY | ~2019-11-12 | XMS | Encounter Summary ---
Demographics + + + | Address | [address] | | | [place] [address] | + + + | Home Phone [...] Providers + +------+ + | Care Fur Sorter Name | Role | Phone | [...] Provider Unknown | | | | | [place], [place] | [phone] | | | | | [address] | | | | | | [phone] | | | +--------+ + + + [...] + + +---------+ + + | [place]-3 Fatty | CAPS, one capsule by | [...] Dx); | | | | | [place] [address] | Presence of | | | | | [phone] | permanent cardiac | | | | [...] W | | | | | | [place], | | | | | | [place] [address] | | | | | | [phone] | | | | | | | [...]
--- OUTSIDE RECORDS SUMMARY | ~2019-11-12 | XMS | Encounter Summary ---
Demographics + + + | Address | [address] | | | [place] [address] | + + + | Home Phone [...] Providers + +------+ + | Care Greige Goods Examiner Name | Role | Phone | + +------+ + PCP | Unavailable | + +------+ + Encounter Details +--------+ + + + + | Date | Type | Department | Care Team | Description | +--------+ + + + + | 12/01/ | Hospital | [facility] | | | | 1997 | Encounter | MED CTR EMERGENCY | | | | | | CENTER [address] | | | | | | [place] | | | | | | [address] | | | | | | [phone] | | | +--------+ + + + [...] Dx); | | | | | [place] [address] | Presence of | | | | | [phone] | permanent cardiac | | | | [...] | | | | | | [place], | | | | | | [place] [address] | | | | | | [phone] | | | | | | | | +--------+ + + + + documented as of this encounter Visit Diagnoses Not on filedocumented in this encounter"
--- OUTSIDE RECORDS SUMMARY | ~2019-11-12 | XMS | Encounter Summary ---
Demographics + + + | Address | [address] | | | [place] [address] | + + + | Home Phone [...] Providers + +------+ + | Care Landscaping Crew Leader Name | Role | Phone [...] [place], [place] | | | | | [place] | | [address] Phone: | | | | | CYSTO/URETER | | [phone] | | | | | O | | Fax: | | | | | W/LITHOTRIPS | | [phone] | | | | | Y &INDWELL [...] + + | 04/13/ | Surgery | [facility] | Matthew Uriarte | Cystoscopy, Left | | 2018 | | MED CTR OR INTRA OP | Dahl, MD [address] | ureteroscopy with | | | | [address] | [place] | laser lithotripsy, | | | | [place] | [address] | Left ureteral stent | | | | [address] | | placement | | | | [phone] | | | +--------+---------+ + + + [...] Care Everywhere.Kidney Stones, Treating: Ureteroscopic Stone Removal (Vincentian)Stents, Ureteral (Vincentian)documented in this encounter Medications at Time of [...] + + + +---------+ + + | [place]-3 Fatty | CAPS, one capsule by [...] | | | | | | | inaja coronary | | | | | | | artery of inaja | | | | | | | [...] Dx); | | | | | [place] [address] | Presence of | | | | | [phone] | permanent cardiac | | | | [...] | | | | | | [place] [address] | | | | | | [phone] | | | | | | | [...] [facility] | | | | | | at:[phone]. | | | | + + + [...] + | Performed at: 01 - [facility] [place] [address] | REFERENCE LAB | | [place], [place] [id number] Warehouse Team Leader: Yeny Rios MD, Phone: | ARSH - KINA | | [phone] | | + + + + + + + + | Performing | Address | City/State/Zipcode | Phone Number | | Organization | | | | + + + + + | REFERENCE LAB | [address] | [place] [address] | [phone] | | [facility] | Drive [...] [address] | [place] | [phone] | | [facility] | | [address] | | | - LABORATORY | | [...] [address] | [place] | [phone] | | [facility] | | [address] | | | - LABORATORY | | [...] [address] | [place] | [phone] | | [facility] | | [address] | | | - LABORATORY | | [...] ST. | [address] | [place], [place] | [phone] | | [facility] | | [address] | | | - LABORATORY | | [...] 27 | 20 - 31 mmol/L | [facility] | | | | | [...] 11 | 9 - 23 mg/dL | [facility] | | | | | | [facility] | | | | | | MEDICAL | | | | | | CENTER - | | | | | | LABORATORY | | + + + + + + | Creatinine | 0.92 | 0.70 - 1.30 | [facility] | | | | | mg/dL | [facility] | | | | | | MEDICAL | | | | | | CENTER - | | | | | | LABORATORY | | + + + + + + | eGFR if not | >60Comment: GLOMERULAR | >=60 | [facility] | | | | FILTRATION | mL/min/1.73m2 | [facility] | | | [facility] | RATE,ESTIMATED | | MEDICAL | | | | mL/min/1.55k7Acrl than | | CENTER - | | [...] [address] | [place] | [phone] | | [facility] | | [address] | | | - LABORATORY | | [...] day), First | | | dose on [facility] 04/13/19 at 1400, | | | Start 8 hours after pre-op dose., | | | Post-op/Phase II | | + +---+ | | | + +---+ | albuterol 2.5 mg/3 mL nebulizer | | | solution 2.5 mg 2.5 mg, | | | Nebulization, ONCE PRN, Wheezing, | | | Starting [facility] 04/13/19 at 0917, | | [...] HR < 40, | | | Starting [facility] 04/13/19 at 0917, For | [...] glucose < 50, | | | Starting [facility] 04/13/19 at 0634, | | | Repeat [...] | | | | | | | jlwdxz-zuk-yapge use of at least | | | [...]
--- OUTSIDE RECORDS SUMMARY | ~2019-11-12 | XMS | Encounter Summary ---
Demographics + + + | Address | [address] | | | [place] [address] | + + + | Home Phone [...] Providers + +------+ + | Care Gizzard Puller Name | Role | Phone | + +------+ + | Kirk French MD | PCP | | + +------+ + Encounter Details +--------+ + + + + | Date | Type | Department | Care Team | Description | +--------+ + + + + | 03/15/ | Hospital | [facility] | Conversion | | | 2017 | Encounter | [facility] XRAY | Transaction, | | | | | [address] | Provider Unknown | | | | | [address] [place] | [phone] | | | | | [address] | | | | | | [phone] | Kirk French | | | | | | MD Brea [address] | | | | | | [address] [place], | | | | | | [place] [address] | | | | | | [phone] | | | | | | | [...] Dx); | | | | | [place] [address] | Presence of | | | | | [phone] | permanent cardiac | | | | [...] | | | | | | [place] [address] | | | | | | [phone] | | | | | | | | +--------+ + + + + documented as of this encounter Visit Diagnoses Not on filedocumented in this encounter"
--- OUTSIDE RECORDS SUMMARY | ~2019-11-12 | XMS | Encounter Summary ---
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
--- OUTSIDE RECORDS SUMMARY | ~2019-11-12 | XMS | Encounter Summary ---
Demographics + + + | Address | [address] | | | [place] [address] | + + + | Home Phone [...] Team Providers + +------+ + | Care Handhole Machine Operator Name | Role | Phone [...] + + | 08/24/ | Office | [facility] | Silvia, | Ascending thoracic | | 2018 | Visit | CARDIOLOGY [address] | [place] [address] | aortic aneurysm | | | | [place], | [place], | ([facility]) (Primary Dx); | | | | [place] [address] | [place] [address] | Syncope, unspecified | | | | [phone] | [phone] | syncope type; | | | | | | Hypertension, | | | | | | unspecified type; | | | | | | Coronary artery | | | | | | disease involving | | | | | | [place] coronary | | | | | | artery of [place] | | | | | | heart [...] of non-critical coronary artery d isease involving [place] coronary artery of [place] heart without angina pectoris, essential h ypertension, [...] health care Coronary artery disease involving [place] coronary artery of [place] heart without angina pectoris Cannabis abuse, daily [...] by mouth Daily. 90 tabl et 1 [facility] (OSTEO BI-FLEX/5-LOXIN ADVANCED [...] 3RD DOSE, CALL 911 100 tablet 3 [place]-3 Fatty Acids (SALMON OIL-1000 PO) CAPS, one [...] now present Confirmed by HIREN WINKLER, ANGELA ([id number]) on 07/28/2018 6:03:35 AM LAB RESULTS reviewed [...] to go back in 3 days to [place] for an attempt of ablation under general [...] He is in class II of the [place] Heart Association f unctional class. There are [...] subsided. 2. Non-critical Coronary artery disease involving [place] coronary artery of [place] heart [facility] angina pectoris: A. Normal exercise [...] cannot completely be ruled out . D. [facility] 12/25/13, shows non critical coronary artery [...] this chart may have been created with Wand[employer] voice recognition software. Occasi onal wrong-word or [...] Dx); | | | | | [place] [address] | Presence of | | | | | [phone] | permanent cardiac | | | | [...] W | | | | | | [place], | | | | | | [place] [address] | | | | | | [phone] | | | | | | | [...] + | Coronary artery disease involving [place] coronary artery of [place] heart without | | angina pectoris | [...]
--- OUTSIDE RECORDS SUMMARY | ~2019-11-12 | XMS | Encounter Summary ---
Demographics + + + | Address | [address] | | | [place] [address] | + + + | Home Phone [...] Providers + +------+ + | Care Svp Research And Strategic Analysis Name | Role | Phone | [...] + + | 12/21/ | Office | [facility] | [place], | Chest pain (Primary | | 2013 | Visit | CARDIOLOGY [address] | [address] | Dx); Symptomatic | | | | [place], | [place], | PVCs; | | | | [place] [address] | [place] [address] | Hyperlipidemia; | | | | [phone] | [phone] | Hypertension; | | | | | [...] this time to see a specialist in [place] and he was to follow up with [...] MOUTH EVERY DAY 30 table t 5 [place]-3 Fatty Acids (SALMON OIL-1000 PO) CAPS, one [...] to go back in 3 days to [place] for an attempt of ablation under general [...] weeks. He is in class II of [place] Heart Association funct ional class. There are [...] tolic function, LVEF 65 to 70%. B. [employer] DDD permanent pacemaker implantation on 06/14/09 by [...] made to ensure accuracy; however, inadvertent computerized quality assurance supervisor errors may be pre sent. documented in this encounter Plan of Treatment +--------+ + + + + | Date | Type | Specialty | Care Team | Description | +--------+ + + + + | 11/20/ | Implant | Cardiology | Daljit Singletary, | Remote Device | | 2019 | Monitor | | [address] [place] | Interrogation | | | | | [place], | (Primary Dx); | | | | | [place] [address] | Presence of | | | | | [phone] | permanent cardiac | | | | [...] W | | | | | | [place], | | | | | | [place] [address] | | | | | | [phone] | | | | | | | [...] of unspecified type of vessel, | | tyonek or graft | + + documented in this encounter
--- OUTSIDE RECORDS SUMMARY | ~2019-11-12 | XMS | Encounter Summary ---
Demographics + + + | Address | [address] | | | [place] [address] | + + + | Home Phone [...] Providers + +------+ + | Care Marketing Assistant Name | Role | Phone [...] | 2018 | Changes | GASTROENTEROLOGY | Lap Runner | | | | | [address] [facility] | | | | | | [address] [place] | | | | | | [address] | | | | | | [phone] | | | +--------+ + + + [...] | Monitor | | MD [address] [place] [address] | Interrogation | | | | | [place], | (Primary Dx); | | | | | [place] [address] | Presence of | | | | | [phone] | permanent cardiac | | | | [...] | | | | | | [place], | | | | | | [place] [address] | | | | | | [phone] | | | | | | | | +--------+ + + + + documented as of this encounter Visit Diagnoses Not on filedocumented in this encounter"
--- OUTSIDE RECORDS SUMMARY | ~2019-11-12 | XMS | Encounter Summary ---
Demographics + + + | Address | [address] | | | [place] [address] | + + + | Home Phone [...] Providers + +------+ + | Care Dairy Science Teacher Name | Role | Phone [...] [address] | | | | | | [place], [place] | (Fax) | | | | | [address] | | | | | | [phone] | | | +--------+ + + + [...] 2019 | Monitor | | [address] [place] | Interrogation | | | | | [place], | (Primary Dx); | | | | | [place] [address] | Presence of | | | | | [phone] | permanent cardiac | | | | [...] | | | | | | [place] [address] | | | | | | [phone] | | | | | | | | +--------+ + + + + documented as of this encounter Visit Diagnoses Not on filedocumented in this encounter"
--- OUTSIDE RECORDS SUMMARY | ~2019-11-12 | XMS | Encounter Summary ---
Demographics + + + | Address | [address] | | | [place] [address] | + + + | Home Phone [...] Providers + +------+ + | Care Production Broacher Name | Role | Phone | + [...] 2012 | | CARDIOLOGY [address] | SUPERINTENDENT CIRCUS [address] | | | | | [place], | [place], [place] | | | | | [place] [address] | [address] | | | | | [phone] | | | +--------+ + + + [...] | Monitor | | MD [address] | Interrogation | | | | | [place], | (Primary Dx); | | | | | [place] [address] | Presence of | | | | | [phone] | permanent cardiac | | | | [...] | | | | | | [place] [address] | | | | | | [phone] | | | | | | | [...] + | [facility] [address] | [address] | [place], [place] | | | [facility] | | [address] | | | - LABORATORY | | [...] | | | LAB | | | Stateless, | | | | | | External [...]
--- OUTSIDE RECORDS SUMMARY | ~2019-11-12 | XMS | Encounter Summary ---
Demographics + + + | Address | [address] | | | [place] [address] | + + + | Home Phone [...] + +------+ + | Care Social Work Manager Name | Role | Phone | [...] | | | | Sinoatrial | Jose, HAIRSPRING CUTTER | [address] | | | | | node | [address] | [place], | | | | | dysfunction | [place] | [place] | | | | | (HCC) | [place], [place] | [address] | | | | | Coronary | [address] | Phone: | | | | | artery | Phone: | [phone] | | | | | disease | [phone] | Fax: | | | | | involving | Fax: | [phone] | | | | | platinum | [phone] | | | | | | coronary | | | | | | | artery of | | | | | | | platinum heart | | | | | | [...] | | | | | | Complete [place] | | | | | | | ECHO HEART | | | | | | | X[place] | | | | | | | MPLETE W | | | | | | | [place]OPPLER [place] | | | | | | | [...] | | | | Sinoatrial | Jose, HAIRSPRING CUTTER | [address] | | | | | node | [address] | [place], | | | | | dysfunction | [place] | [place] | | | | | ([facility]) | [place], [place] | [address] | | | | | Coronary | [address] | Phone: | | | | | artery | Phone: | [phone] | | | | | disease | [phone] | Fax: | | | | | involving | Fax: | [phone] | | | | | platinum | [phone] | | | | | | coronary | | | | | | | artery of | | | | | | | platinum heart | | | | | | [...] | | | | | | Complete [place] | | | | | | | ECHO HEART | | | | | | | XTHORAC[place] | | | | | | | MPLETE [place] | | | | | | | [place]ER [place] | | | | | | | [...] + + + + | 06/16/ | [facility] | [facility] | Jose Angel, | Sinoatrial node | | 2016 | Encounter | [facility] [address] | HAIRS[employer]ING CUTTER [address] | dysfunction (HCC) | | | | [address] [place] | [place], [place] | with symptomatic | | | | [place] [address] | [address] | bradycardia; | | | | [phone] | | Coronary artery | | | | | Juvenal Blake, | disease involving | | | | | Technologist | platinum coronary | | | | | | artery of platinum | | | | | | heart [...] + + + +---------+ + + | Tyndall-3 Fatty | CAPS, one capsule by | [...] Interrogation | | | | | [facility] [place], | (Primary Dx); | | | | | [place] [address] | Presence of | | | | | [phone] | permanent cardiac | | | | [...] W | | | | | | [address] [place], | | | | | | [place] [address] | | | | | | [phone] | | | | | | | [...] involving | | | | | | platinum coronary | | | | | | artery of platinum | | | | | | heart [...] Patient | [facility] | | [id number] Date of Study 06/16/2016 Number | - IMAGING | | Visit Number [id number] | | | Referring Physician JOSE ARMANDO JOSE Number Date of 1960 | | | [employer] LUIS FERNANDO DUARTE Age | | | 56 year(s) Interpreting | | | GURJIT TROY | | | Recruiting Consultant SYDNI SINGLETARY, | | | Gender | | | Male Nurse Procedure Type of Study TTE | | | procedure: ECHO Complete. Procedure dateDate: 06/16/2016Start: 10:55 | | | AM Technical Quality: Adequate visualizationStudy Location: Echo | | | LabIndications: CAD [place] CORONARY ARTERY 414.01/ I25.10 and | | [...] BARRY Room Number SARAH | | Patient [id number] Date of Study 06/16/2016 Number Visit Number | | [id number] Referring Physician JOSE ARMANDO GARCIA Number | | Date of 1960 [employer] LUIS FERNANDO DUARTE Age | | 56 year(s) Interpreting GURJIT TROY | | Recruiting Consultant SYDNI SINGLETARY | | Gender Male NurseProcedureType of Study TTE | | procedure: ECHO Complete.Procedure dateDate: 06/16/2016Start: 10:55 AMTechnical Quality: | | Adequate visualizationStudy Location: Echo LabIndications: CAD [place] CORONARY ARTERY | | 414.01/ I25.10 and [...] [address] | [place] | [phone] | | [facility] | | [address] | | | - IMAGING | | [...]
--- OUTSIDE RECORDS SUMMARY | ~2019-11-12 | XMS | Encounter Summary ---
Demographics + + + | Address | [address] | | | [place] [address] | + + + | Home Phone [...] Team Providers + +------+ + | Care Forge Tender Name | Role | Phone | + +------+ + | Michael Amanda DO | PCP | | + +------+ + Encounter Details +--------+ + + + + | Date | Type | Department | Care Team | Description | +--------+ + + + + | 02/27/ | Hospital | [facility] | Shelly Carter DO | Chest pain; | | 2013 - | Encounter | [facility] | [address] | Pacemaker; | | | | CLINICAL DECISION | [place] [address] | Mild dehydration | | 02/28/ | | [address] [facility] | [phone] | | | 2013 | | [place], [place] | | | | | | [address] | | | | | | [phone] | | | +--------+ + + + [...] 2252 Date of Service: 02/28/141044 Status: Addendum Dehydrating Press Operator: Dev Montano MD (Physician) Related Notes: Original Note by Dev Montano MD (Physician) filed at 02/28/14 1107 Patient ID: Pina Gay [id number] y.o. 1960 Admit date: 02/27/2014 Discharge [...] - 99 mg/dL Final Testing performed at [address] [address] BUN Date Value Range Status 02/28/2014 15 8 - 25 mg/dL Final Testing performed at [address] [address] CREATININE Date Value Range Status 02/28/2014 0.74 0.70 - 1.30 mg/dL Final Testing performed at [address] [address] BUN/CREAT Date Value Range Status 02/28/2014 20 Final Testing performed at [address] [address] TOTAL PROTEIN Date Value Range Status 02/28/2014 6.1* 6.3 - 8.2 g/dL Final Testing performed at [address] [address] GLOBULIN Date Value Range Status 02/28/2014 2.1 1.3 - 4.9 g/dL Final Testing performed at [address] [address] TBIL Date Value Range Status 02/28/2014 1.4 0.1 - 1.5 mg/dL Final Testing performed at [address] [address] ALT Date Value Range Status 02/28/2014 27 10 - 65 U/L Final Testing performed at [address] [address] AST Date Value Range Status 02/28/2014 31 10 - 45 U/L Final Testing performed at [address] [address] SODIUM Date Value Range Status 02/28/2014 138 135 - 143 mmol/L Final Testing performed at [facility], [address] [place] [address] POTASSIUM Date Value Range Status 02/28/2014 3.4* 3.5 - 4.9 mmol/L Final Testing performed at [facility], [address] [place] [address] CHLORIDE Date Value Range Status 02/28/2014 108 99 - 109 mmol/L Final Testing performed at [address] [address] CO2 Date Value Range Status 02/28/2014 21* 23 - 32 mmol/L Final Testing performed at [facility], [address] [place] [address] ANION GAP AGAP Date Value Range Status 02/28/2014 12 5 - 20 mmol/L Final Testing performed at [facility], [address] [place] [address] Xr Chest Pa And Lateral 02/27/2014 PINA [...] 3-D reconstructi ons were performed using the [employer] 3-D software and sent to PACS. Oral Contrast: None I V contrast: 100 mL IsoVue 370 COMPARISON: None. FINDINGS: CHEST: The overcaster view shows a p acemaker via left [...] pacemaker, [facility] complaining of chest pain which started [...] catheterization recently done by Dr. Singletary in [place] in December 2013 at [facility] which showed minimal occlusive disease. One artery was 25% and another was 15%, per patient. I requested official cardiac catheterization report from [place] and still waiting for it to come. 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 You may get these medications from any pharmacy. amLODIPine 5 MG tablet pantoprazole 40 MG tablet Activity: activity as tolerated Diet: cardiac diet Wound Care: not applicable There are no Patient Instructions on file for this visit. Per Pt None Chaka Ortiz MD [address] [facility] [id number] In 1 week Ariel Pulido MD [address] [facility] [phone] In 1 week Daljit Singletary MD [address] [facility] [address] [facility] [address] In 1 week Signed: DEV MONTANO 02/28/2014 10:45 AM Addendum:ADDENDUM I just received a cardiac catheterization report from [facility], [place], which was done on December 25, 2013. [...] + + + +---------+ + + | Lincoln-3 Fatty | CAPS, one capsule by | [...] 02/28/141211 Date of Service: 02/28/141210 Status: Signed Dehydrating Press Operator: Bijal Sosa RN (Registered Nurse) Discharge instructions [...] 02/28/1411 Date of Service: 02/28/1411 Status: Signed Dehydrating Press Operator: Mary Wetzel RPH (Pharmacist) Clinical Pharmacy Note: [...] Dx); | | | | | [place] [address] | Presence of | | | | | [phone] | permanent cardiac | | | | [...] | | | | | | [place] [address] | | | | | | [phone] | | | | | | | [...] | LAB | | | | [address];[place], [place] | | | | | | [address] | | | | + + + [...] | | | | | | ACUTE [place] Testing | | | | | | performed at [facility] | | | | | | [facility];[place], [place] | | | | | | [address] | | | | + + + [...] | | | | | [place] [address] | | | | + + + + + + | RED CELL | 4.68Comment: Testing | 4.20 - 5.70 | EXTERNAL | | | COUNT | performed at [facility], [address] | M/uL | LAB | | | | [address], | | | | | | [place] [address] | | | | + + + + + + | Hgb | 15.3Comment: Testing | 13.2 - 17.0 | EXTERNAL | | | | performed at [facility], [address] | g/dL | LAB | | | | [address], | | | | | | [place] [address] | | | | + + + + + + | Hematocrit, | 44.2Comment: Testing | 39.0 - 50.0 % | EXTERNAL | | | POC | performed at [facility], [address] | | LAB | | | | [address], | | | | | | [place] [address] | | | | + + + + + + | MCV | 94.5Comment: Testing | 80.0 - 100.0 fl | EXTERNAL | | | | performed at [facility], [address] | | LAB | | | | [address], | | | | | | [place] [address] | | | | + + + + + + | MCH | 32.6Comment: Testing | 27.0 - 34.0 pg | EXTERNAL | | | | performed at [facility], [address] | | LAB | | | | [address], | | | | | | [place] [address] | | | | + + + + + + | MCHC | 34.5Comment: Testing | 32.0 - 35.5 | EXTERNAL | | | | performed at [facility], [address] | g/dL | LAB | | | | [address], | | | | | | [place] [address] | | | | + + + + + + | RDW-CV | 45.5Comment: Testing | 37 - 53 fl | EXTERNAL | | | | performed at [facility], [address] | | LAB | | | | [address], | | | | | | [place] [address] | | | | + + + + + + | Platelet | 156Comment: Testing | 150 - 400 K/uL | EXTERNAL | | | Count | performed at [facility], [address] | | LAB | | | Plasma | [address], | | | | | | [place] [address] | | | | + + + + + + | MPV | 8.8Comment: Testing | fl | EXTERNAL | | | | performed at [facility], [address] | | LAB | | | | [address], | | | | | | [place] [address] | | | | + + + + + + | Differentia | AUTOMATEDComment: | | EXTERNAL | | | l Type | Testing performed at | | LAB | | | | [facility], [address] | | | | | | [place] | | | | | | [address] | | | | + + + + + + | % Segmented | 57.7Comment: Testing | % | EXTERNAL | | | | performed at [facility], [address] | | LAB | | | Neutrophils | [address], | | | | | | [place] [address] | | | | + + + + + + | % | 31.8Comment: Testing | % | EXTERNAL | | | Lymphocytes | performed at [facility], [address] | | LAB | | | | [address], | | | | | | [place] [address] | | | | + + + + + + | % Monocytes | 9.2Comment: Testing | % | EXTERNAL | | | | performed at [facility], [address] | | LAB | | | | [address], | | | | | | [place] [address] | | | | + + + + + + | % | 0.9Comment: Testing | % | EXTERNAL | | | Eosinophils | performed at [facility], [address] | | LAB | | | | [address], | | | | | | [place] [address] | | | | + + + + + + | % Basophils | 0.4Comment: Testing | % | EXTERNAL | | | | performed at [facility], [address] | | LAB | | | | [address], | | | | | | [place] [address] | | | | + + + + + + | Absolute | 3.9Comment: Testing | 1.9 - 7.4 K/uL | EXTERNAL | | | Segmented | performed at [facility], [address] | | LAB | | | Neutrophils | [address], | | | | | | [place] [address] | | | | + + + + + + | Absolute | 2.1Comment: Testing | 1.0 - 3.9 K/uL | EXTERNAL | | | Lymphocytes | performed at [facility], [address] | | LAB | | | | [address], | | | | | | [place] [address] | | | | + + + + + + | Absolute | 0.6Comment: Testing | 0 - 0.8 K/uL | EXTERNAL | | | Monocytes | performed at [facility], [address] | | LAB | | | | [address], | | | | | | [place] [address] | | | | + + + + + + | Absolute | 0.1Comment: Testing | 0 - 0.5 K/uL | EXTERNAL | | | Eosinophils | performed at [facility], [address] | | LAB | | | | [address], | | | | | | [place] [address] | | | | + + + + + + | Absolute | 0.0Comment: Testing | 0 - 0.1 K/uL | EXTERNAL | | | Basophils | performed at [facility], [address] | | LAB | | | | [address], | | | | | | [place] [address] | | | | + + + [...] | | | | performed at [facility], [address] | | LAB | | | | [address], | | | | | | [place] [address] | | | | + + + [...] | | | | | [place] [address] | | | | + + + [...] [place] | | | | | | [address] | | | | + + + [...] | | | | | [place] [address] | | | | + + + + + + | Triglycerid | 37Comment: Testing | mg/dL | EXTERNAL | | | es | performed at [facility], [address] | | LAB | | | | [address], | | | | | | [place] [address] | | | | + + + + + + | HDL | 35 (L)Comment: Testing | mg/dL | EXTERNAL | | | | performed at [facility], [address] | | LAB | | | | [address], | | | | | | [place] [address] | | | | + + + + + + | LDL | 67Comment: Testing | mg/dL | EXTERNAL | | | Cholesterol | performed at [facility], [address] | | LAB | | | , | [address], | | | | | Calculated, | [place] [address] | | | | | External | [...] | | | | | [place] [address] | | | | + + + + + + | K | 3.4 (L)Comment: Testing | 3.5 - 4.9 | EXTERNAL | | | | performed at [facility], [address] | mmol/L | LAB | | | | [address], | | | | | | [place] [address] | | | | + + + + + + | Cl | 108Comment: Testing | 99 - 109 mmol/L | EXTERNAL | | | | performed at [facility], [address] | | LAB | | | [address], | | | | | | [place] [address] | | | | + + + + + + | CO2 | 21 (L)Comment: Testing | 23 - 32 mmol/L | EXTERNAL | | | | performed at [facility], [address] | | LAB | | | | [address], | | | | | | [place] [address] | | | | + + + + + + | Anion Gap | 12Comment: Testing | 5 - 20 mmol/L | EXTERNAL | | | | performed at [facility], [address] | | LAB | | | | [address], | | | | | | [place] [address] | | | | + + + + + + | Glucose, | 107 (H)Comment: Testing | 65 - 99 mg/dL | EXTERNAL | | | Fasting | performed at [facility], [address] | | LAB | | | | [address], | | | | | | [place] [address] | | | | + + + + + + | BUN | 15Comment: Testing | 8 - 25 mg/dL | EXTERNAL | | | | performed at [facility], [address] | | LAB | | | | [address], | | | | | | [place] [address] | | | | + + + + + + | Creatinine | 0.74Comment: Testing | 0.70 - 1.30 | EXTERNAL | | | | performed at [facility], [address] | mg/dL | LAB | | | | [address], | | | | | | [place] [address] | | | | + + + + + + | BUN/Creatin | 20Comment: Testing | | EXTERNAL | | | ine Ratio | performed at [facility], [address] | | LAB | | | | [address], | | | | | | [place] [address] | | | | + + + + + + | Calcium | 8.9Comment: Testing | 8.5 - 10.2 | EXTERNAL | | | | performed at [facility], [address] | mg/dL | LAB | | | | [address], | | | | | | [place] [address] | | | | + + + + + + | Protein, | 6.1 (L)Comment: Testing | 6.3 - 8.2 g/dL | EXTERNAL | | | Total | performed at [facility], [address] | | LAB | | | | [address], | | | | | | [place] [address] | | | | + + + + + + | Albumin | 4.0Comment: Testing | 3.6 - 5.0 g/dL | EXTERNAL | | | | performed at [facility], [address] | | LAB | | | | [address], | | | | | | [place] [address] | | | | + + + + + + | Globulin | 2.1Comment: Testing | 1.3 - 4.9 g/dL | EXTERNAL | | | | performed at [facility], [address] | | LAB | | | | [address], | | | | | | [place] [address] | | | | + + + + + + | A/G Ratio | 1.9Comment: Testing | 1.0 - 2.4 | EXTERNAL | | | | performed at [facility], [address] | | LAB | | | | [address], | | | | | | [place] [address] | | | | + + + [...] | | LAB | | | | [address], | | | | | | [place] [address] | | | | + + + + + + | AST | 31Comment: Testing | 10 - 45 U/L | EXTERNAL | | | | performed at [facility], [address] | | LAB | | | | [address], | | | | | | [place] [address] | | | | + + + + + + | ALT | 27Comment: Testing | 10 - 65 U/L | EXTERNAL | | | | performed at [facility], [address] | | LAB | | | | [address], | | | | | | [place] [address] | | | | + + + [...] | at [facility], [address] | | | | | [address], | | | | | | [place] [address] | | | | + + + [...] + + | Historically converted procedure from [facility] | EXTERNAL LAB | + [...] | LAB | | | | [address];[place], [place] | | | | | | [address] | | | | + + + [...] | | | | | | ACUTE [place] Testing | | | | | | performed at [facility];[address] | | | | | | [address] [facility];[place], [place] | | | | | | [address] | | | | + + + [...] | LAB | | | | [address];[place], [place] | | | | | | [address] | | | | + + + [...] were | | | performed using the [employer] 3-D software and sent to PACS. Oral | | | Contrast: None IV contrast: 100 mL IsoVue 370 COMPARISON: None. | | | FINDINGS: CHEST: The overcaster view shows a pacemaker via left | [...] reconstructions were performed | | using the [employer] 3-D software and sent to PACS. Oral Contrast: NoneIV contrast: 100 | | mL IsoVue 370 COMPARISON:None. FINDINGS: CHEST: The overcaster view shows a pacemaker via | | [...] [place] | | | | | | [address] | | | | + + + + + -+ | RED CELL | 5.19Comment: Testing | 4.20 - 5.70 | EXTERNAL | | | COUNT | performed at [facility];[address] | M/uL | LAB | | | | [address];[place] | | | | | | [address] | | | | + + + + + -+ | Hgb | 16.8Comment: Testing | 13.2 - 17.0 | EXTERNAL | | | | performed at [facility];[address] | g/dL | LAB | | | | [address];[place] | | | | | | [address] | | | | + + + + + -+ | Hematocrit, | 49.5Comment: Testing | 39.0 - 50.0 % | EXTERNAL | | | POC | performed at [facility];[address] | | LAB | | | | [address];[place] | | | | | | [address] | | | | + + + + + -+ | MCV | 95.4Comment: Testing | 80.0 - 100.0 fl | EXTERNAL | | | | performed at [facility];[address] | | LAB | | | | [address];[place] | | | | | | [address] | | | | + + + + + -+ | MCH | 32.4Comment: Testing | 27.0 - 34.0 pg | EXTERNAL | | | | performed at [facility];[address] | | LAB | | | | [address];[place] | | | | | | [address] | | | | + + + + + -+ | MCHC | 34.0Comment: Testing | 32.0 - 35.5 | EXTERNAL | | | | performed at [facility];[address] | g/dL | LAB | | | | [address];[place] | | | | | | [address] | | | | + + + + + -+ | RDW-CV | 46.8Comment: Testing | 37 - 53 fl | EXTERNAL | | | | performed at [facility];[address] | | LAB | | | | [address];[place] | | | | | | [address] | | | | + + + + + -+ | Platelet | 179Comment: Testing | 150 - 400 K/uL | EXTERNAL | | | Count | performed at [facility];[address] | | LAB | | | Plasma | [address];[place] | | | | | | [address] | | | | + + + + + -+ | MPV | 8.6Comment: Testing | fl | EXTERNAL | | | | performed at [facility];[address] | | LAB | | | | [address];[place] | | | | | | [address] | | | | + + + + + -+ | Differentia | AUTOMATEDComment: | | EXTERNAL | | | l Type | Testing performed at | | LAB | | | | [facility];[address] | [address];[place] [address] | | | | + + + + + -+ | % Segmented | 62.4Comment: Testing | % | EXTERNAL | | | | performed at [facility];[address] | | LAB | | | Neutrophils | [address];[place] | | | | | | [address] | | | | + + + + + -+ | % | 26.3Comment: Testing | % | EXTERNAL | | | Lymphocytes | performed at [facility];[address] | | LAB | | | | [address];[place] | | | | | | [address] | | | | + + + + + -+ | % Monocytes | 10.3Comment: Testing | % | EXTERNAL | | | | performed at [facility];[address] | | LAB | | | | [address];[place] | | | | | | [address] | | | | + + + + + -+ | % | 0.5Comment: Testing | % | EXTERNAL | | | Eosinophils | performed at [facility];[address] | | LAB | | | | [address];[place] | | | | | | [address] | | | | + + + + + -+ | % Basophils | 0.5Comment: Testing | % | EXTERNAL | | | | performed at [facility];[address] | | LAB | | | | [address];[place] | | | | | | [address] | | | | + + + + + -+ | Absolute | 6.3Comment: Testing | 1.9 - 7.4 K/uL | EXTERNAL | | | Segmented | performed at [facility];[address] | | LAB | | | Neutrophils | [address];[place] | | | | | | [address] | | | | + + + + + -+ | Absolute | 2.7Comment: Testing | 1.0 - 3.9 K/uL | EXTERNAL | | | Lymphocytes | performed at [facility];[address] | | LAB | | | | [address];[place] | | | | | | [address] | | | | + + + + + -+ | Absolute | 1.0 (H)Comment: Testing | 0 - 0.8 K/uL | EXTERNAL | | | Monocytes | performed at [facility];[address] | | LAB | | | | [address];[place] | | | | | | [address] | | | | + + + + + -+ | Absolute | 0.0Comment: Testing | 0 - 0.5 K/uL | EXTERNAL | | | Eosinophils | performed at [facility];[address] | | LAB | | | | [address];[place] | | | | | | [address] | | | | + + + + + -+ | Absolute | 0.1Comment: Testing | 0 - 0.1 K/uL | EXTERNAL | | | Basophils | performed at [facility];[address] | | LAB | | | | [address];[place] | | | | | | [address] | | | | + + + + + -+ | Na | 139Comment: Testing | 135 - 143 | EXTERNAL | | | | performed at [facility];[address] | mmol/L | LAB | | | | [address];[place] | | | | | | [address] | | | | + + + + + -+ | K | 3.4 (L)Comment: Testing | 3.5 - 4.9 | EXTERNAL | | | | performed at [facility];[address] | mmol/L | LAB | | | | [address];[place] | | | | | | [address] | | | | + + + + + -+ | Cl | 108Comment: Testing | 99 - 109 mmol/L | EXTERNAL | | | | performed at [facility];[address] | | LAB | | | | [address];[place] | | | | | | [address] | | | | + + + + + -+ | CO2 | 21 (L)Comment: Testing | 23 - 32 mmol/L | EXTERNAL | | | | performed at [facility];[address] | | LAB | | | | [address];[place] | | | | | | [address] | | | | + + + + + -+ | Anion Gap | 14Comment: Testing | 5 - 20 mmol/L | EXTERNAL | | | | performed at [facility];[address] | | LAB | | | | [address];[place] | | | | | | [address] | | | | + + + [...] [place] | | | | | | [address] | | | | + + + + + -+ | Creatinine | 0.97Comment: Testing | 0.70 - 1.30 | EXTERNAL | | | | performed at [facility];[address] | mg/dL | LAB | | | | [address];[place] | | | | | | [address] | | | | + + + + + -+ | BUN/Creatin | 21Comment: Testing | | EXTERNAL | | | ine Ratio | performed at [facility];[address] | | LAB | | | | [address];[place] | | | | | | [address] | | | | + + + + + -+ | Calcium | 8.7Comment: Testing | 8.5 - 10.2 | EXTERNAL | | | | performed at [facility];[address] | mg/dL | LAB | | | | [address];[place] | | | | | | [address] | | | | + + + + + -+ | Protein, | 7.6Comment: Testing | 6.3 - 8.2 g/dL | EXTERNAL | | | Total | performed at [facility];[address] | | LAB | | | | [address];[place] | | | | | | [address] | | | | + + + + + -+ | Albumin | 4.2Comment: Testing | 3.6 - 5.0 g/dL | EXTERNAL | | | | performed at [facility];[address] | | LAB | | | | [address];[place] | | | | | | [address] | | | | + + + + + -+ | Globulin | 3.4Comment: Testing | 1.3 - 4.9 g/dL | EXTERNAL | | | | performed at [facility];[address] | | LAB | | | | [address];[place] | | | | | | [address] | | | | + + + + + -+ | A/G Ratio | 1.2Comment: Testing | 1.0 - 2.4 | EXTERNAL | | | | performed at [facility];[address] | | LAB | | | | [address];[place] | | | | | | [address] | | | | + + + [...] [place] | | | | | | [address] | | | | + + + + + -+ | AST | 35Comment: Testing | 10 - 45 U/L | EXTERNAL | | | | performed at [facility];[address] | | LAB | | | | [address];[place] | | | | | | [address] | | | | + + + + + -+ | ALT | 43Comment: Testing | 10 - 65 U/L | EXTERNAL | | | | performed at [facility];[address] | | LAB | | | | [address];[place] | | | | | | [address] | | | | + + + [...] | at [facility];[address] | | [address];[place] [address] | | | | + + + + + -+ | CK, Total | 510 (H)Comment: Testing | 55 - 400 U/L | EXTERNAL | | | | performed at [facility];[address] | | LAB | | | | [address];[place] | | | | | | [address] | | | | + + + [...] [place];[address] | | | | | | [address];[place] | | | | | | [address] | | | | + + + + + -+ | aPTT, | 24Comment: Testing | 23 - 32 seconds | EXTERNAL | | | Patient | performed at [facility];[address] | | LAB | | | | [address];[place] | | | | | | [address] | | | | + + + + + -+ | CK-MB | 9.3 (H)Comment: Testing | 0.5 - 3.6 ng/mL | EXTERNAL | | | | performed at [facility] [place] | LAB | | | [address];[place] | | | | | | [address] | | | | + + + [...] | LAB | | | | [address];[place], [place] | | | | | | [address] | | | | + + + [...] | LAB | | | | [facility];[place], [place] | | | | | | [address] | | | | + + + [...] (500), | | | | | | desk editor TERESE NINA (2) | | | | | | on 02/27/2014 6:56:17 PM | | | | + + + + + + + + | Specimen | + + | | + + + + + | Narrative | Performed At | + + + | Historically converted procedure from [facility] | EXTERNAL LAB | + [...]
--- OUTSIDE RECORDS SUMMARY | ~2019-11-12 | XMS | Encounter Summary ---
Demographics + + + | Address | [address] | | | [place] [address] | + + + | Home Phone [...] Providers + +------+ + | Care Communication Skills Instructor Name | Role | Phone | + +------+ + PCP | Unavailable | + +------+ + Encounter Details +--------+ + + + + | Date | Type | Department | Care Team | Description | +--------+ + + + + | 12/16/ | Hospital | [facility] | | | | 2010 | Encounter | [facility] | | | | | | [address] | | | | | | [place] | | | | | | [address] | | | | | | [phone] | | | +--------+ + + + [...] Dx); | | | | | [place] [address] | [facility] of | | | | | [phone] | permanent cardiac | | | | [...] | | | | | [place], | | | | | | [place] [address] | | | | | | [phone] | | | | | | | | +--------+ + + + + documented as of this encounter Visit Diagnoses Not on filedocumented in this encounter"
--- OUTSIDE RECORDS SUMMARY | ~2019-11-12 | XMS | Encounter Summary ---
Demographics + + + | Address | [address] [place] [address] | | | [place] [address] | + + + | Home Phone [...] [place] | | | | | [address] | | + + + + + Care Team Providers + +------+ + | Care High Pressure Boiler Operator Name | Role | Phone | [...] | | | Chest pain | Farooq Almauger, | [address] | | | | | Bradycardia | DO [address] | | | | | Procedures | Yao Booth | Mailcode: | | | | | | Palak Desai | [facility] | | | | | TRANSTHORACI | [place], [place] | for Health | | | | | C | [address] | and Healing, | | | | | ECHOCARDIOGR | Phone: | Building 1 | | | | | AM, ADULT | [phone] | [place], [place] | | | | | | Fax: | [address] | | | | | | [phone] | Phone: | | | | | | | [phone] | +--------+--------+ + + + + Encounter Details +--------+ + + + + | Date | Type | Department | Care Team | Description | +--------+ + + + + | 02/03/ | Hospital | Cardiac | | | | 2010 | Encounter | Non-Invasive Testing | | | | | | at [facility] [address] | | | | | | Tremayne Crane Mailcode: | | | | | | [facility] | | | | | | Health and Healing, | | | | | | Building 1 | | | | | | [place], [place] | | | | | | [address] | | | | | | [phone] | | | +--------+ + + + [...] | Procedure Note | + + | Rcahel De La Torre - 02/03/2011 4:42 PM [...]
--- OUTSIDE RECORDS SUMMARY | ~2019-11-12 | XMS | Encounter Summary ---
Demographics + + + | Address | [address] | | | [place] [address] | + + + | Home Phone [...] Providers + +------+ + | Care Small Boat Engineer Name | Role | Phone | [...] | ER FUP | [address] | [address] | | | | | Procedures | [place], | [place], | | | | | FUP | [place] [address] | [place] [address] | | | | | | Phone: | Phone: | | | | | | [phone] | [phone] | | | | | | Fax: | Fax: | | | | | | [phone] | [phone] | +--------+--------+ + + + + Encounter Details +--------+---------+ + + + | Date | Type | Department | Care Team | Description | +--------+---------+ + + + | 02/11/ | Office | [facility] [place] | Silvia, | Coronary artery | | 2016 | Visit | CARDIOLOGY [address] | Janeen VIOLIN MECHANIC [address] | disease involving | | | | [place], | [place], | [place] coronary | | | | [place] [address] | [place] [address] | artery of [place] | | | | [phone] | [phone] | heart without angina | | | [...] coronary artery d isease involving [place] coronary artery of [place] heart without angina pectoris, essential h ypertension, [...] He sleeps on 1 pillow at [facility] without any shortness of breath. Overall, he has been doing well otherwise than the [facility] iety. MEDICAL, SURGICAL, AND PERSONAL HISTORY [...] artery of [place] heart without angina pectoris Cannabis abuse, daily [...] 3RD DOSE, CALL 911 100 tablet 3 [place]-3 Fatty Acids (SALMON OIL-1000 PO) CAPS, one [...] was found Confirmed by ANGELA MARADIAGA MD ([id number]) on 01/25/2017 6:45:26 AM LAB RESULTS reviewed [...] 162 11/05/2016 I reviewed records from [facility] for emergency department visit o n 01/2017 which is summarized in the HPI. Above data and testing is reviewed this visit; testing below is historical data unless othe rwise specified. ASSESSMENT: 1. Essential hypertension with goal blood pressure less than 130/80: A. Today it has been well controlled 110 mmHg. He is in class I of t he [place] Heart Ass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 On physical examination there are no signs of fluid overload. 2. Non-critical Coronary artery disease involving [place] coronary a rtery of [place] heart without angina pectoris: A. Normal exercise [...] to go back in 3 days to [place] for an attempt of ablation under general [...] normal stable device function. Estimated remaining [facility] longevity is 3.5 years.. 5. [...] this chart may have been created with SMS [employer] voice recognition software. Occasi onal wrong-word or [...] Interrogation | | | | | [place], | (Primary Dx); | | | | | [place] [address] | Presence of | | | | | [phone] | permanent cardiac | | | | [...] | | | | | | [place] [address] | | | | | | [phone] | | | | | | | | +--------+ + + + + documented as of this encounter Visit Diagnoses + + | Diagnosis | + + | Coronary artery disease involving [place] coronary artery of [place] heart without | | angina pectoris - Primary | + + | Essential hypertension with goal blood pressure less than 130/80 | + + | Hyperlipidemia, mixed Mixed hyperlipidemia | + + documented in this encounter
--- OUTSIDE RECORDS SUMMARY | ~2019-11-12 | XMS | Encounter Summary ---
Demographics + + + | Address | [address] | | | [place] [address] | + + + | Home Phone [...] Providers + +------+ + | Care Clinical Education Assistant Name | Role | Phone | + +------+ + | Kirk French MD | PCP | | + +------+ + Encounter Details +--------+ + + + + | Date | Type | Department | Care Team | Description | +--------+ + + + + | 01/05/ | Orders Only | [facility] | Emmanuel Daniel MD | | | 2019 | | [facility] | [address], [place] | | | | | PATHOLOGY [address] | [address] [place], [place] | | | | | BLVD [place], [place] | [address] | | | | | [address] | | | | | | [phone] | | | +--------+ + + + [...] 2018 | Monitor | | MD [address] [place] [address] | Interrogation | | | | | [place], | (Primary Dx); | | | | | [place] [address] | Presence of | | | | | [phone] | permanent cardiac | | | | [...] | | | | | | [place] [address] | | | | | | [phone] | | | | | | | [...] or | | | microscopic colitis. BES:[facility]:C3NR GROSS DESCRIPTION: A. The | | | specimen, labeled "[place], duodenal biopsy" is received in formalin | | | and consists of seven 0.1-0.5 cm lin fragments. Entirely submitted in | | | (A1). B. The specimen, labeled "[place], right colon" is received | | | in formalin and consists of six 0.2-0.3 cm lin fragments. Entirely | | | submitted in (B1). C. The specimen, labeled "[place], left colon" | | | is received in formalin and consists of six 0.2-0.3 cm lin-pink | | | fragments. Entirely submitted in (C1). am:AMB:portillo PERFORMING | | | LABORATORY: The technical component was performed by [facility] | | | [facility], [address] [place] [address] (Inspector Plug Seam: | | | Kailey Stafford MD; CLIA# [id number]). Professional interpretation was | | | performed by [facility], [facility], [address] | | | [place] [address] (Inspector Plug Seam: Ishaan | | | Anthony Dao; CLIA#: [id number]). Diagnostician: Ishaan Dao | | | Pathologist [...]
--- OUTSIDE RECORDS SUMMARY | ~2019-11-12 | XMS | Encounter Summary ---
Demographics + + + | Address | [address] | | | [place] [address] | + + + | Home Phone [...] Providers + +------+ + | Care Retail Loan Originator Assistant Name | Role | Phone | [...] | CARDIOLOGY [address] | MD [address] [place] | | | | | [place], | [place], | | | | | [place] [address] | [place] [address] | | | | | [phone] | [phone] | | | | | | | [...] Interrogation | | | | | [place], | (Primary Dx); | | | | | [place] [address] | Presence of | | | | | [phone] | permanent cardiac | | | | [...] | | | | | | [place], | | | | | | [place] [address] | | | | | | [phone] | | | | | | | | +--------+ + + + + documented as of this encounter Visit Diagnoses Not on filedocumented in this encounter"
--- OUTSIDE RECORDS SUMMARY | ~2019-11-12 | XMS | Encounter Summary ---
Demographics + + + | Address | [address] | | | [place] [address] | + + + | Home Phone [...] + + | 09/22/ | Hospital | [facility] | Bahman Gant MD | | | 2012 | Encounter | MED CTR XRAY [address] | [address] [place] | | | | | [place] | [address] [place], | | | | | [place] [address] | [place] [address] | | | | | [phone] | [phone] | | | | | | | [...] + + + +---------+ + + | [place]-3 Fatty | CAPS, one capsule by | [...] | MD Sim [facility] | Interrogation | | | | | [place], | (Primary Dx); | | | | | [place] [address] | Presence of | | | | | [phone] | permanent cardiac | | | | [...] | | | | | | [place] [address] | | | | | | [phone] | | | | | | | | +--------+ + + + + documented as of this encounter Visit Diagnoses Not on filedocumented in this encounter"
--- OUTSIDE RECORDS SUMMARY | ~2019-11-12 | XMS | Encounter Summary ---
Demographics + + + | Address | [address] | | | [place] [address] | + + + | Home Phone [...] Providers + +------+ + | Care Slab Installer Name | Role | Phone | [...] | CARDIOLOGY [address] | Janeen WIRE COATER [address] | | | | | [place], | [place], | | | | | [place] [address] | [place] [address] | | | | | [phone] | [phone] | | | | | | | [...] Dx); | | | | | [place] [address] | Presence of | | | | | [phone] | permanent cardiac | | | | [...] W | | | | | | [place], | | | | | | [place] [address] | | | | | | [phone] | | | | | | | | +--------+ + + + + documented as of this encounter Visit Diagnoses Not on filedocumented in this encounter"
--- OUTSIDE RECORDS SUMMARY | ~2019-11-12 | XMS | Encounter Summary ---
Demographics + + + | Address | [address] | | | [place] [address] | + + + | Home Phone [...] Providers + +------+ + | Care President & Ceo [employer] Name | Role | Phone | + [...] 2019 | | GASTROENTEROLOGY | [address], [place] | Recommendations | | | | [address] [place] | [address] [place], [place] | | | | | [address] [place], [place] | [address] | | | | | [address] | | | | | | [phone] | | | +--------+ + + + [...] Dx); | | | | | [place] [address] | Presence of | | | | | [phone] | permanent cardiac | | | | [...] | | | | | | [place] [address] | | | | | | [phone] | | | | | | | | +--------+ + + + + documented as of this encounter Visit Diagnoses Not on filedocumented in this encounter"
--- OUTSIDE RECORDS SUMMARY | ~2019-11-12 | XMS | Encounter Summary ---
Demographics + + + | Address | [address] | | | [place] [address] | + + + | Home Phone [...] Providers + +------+ + | Care Strip Polisher Name | Role | Phone | + +------+ + | Kirk French MD | PCP | | + +------+ + Encounter Details +--------+ + + + + | Date | Type | Department | Care Team | Description | +--------+ + + + + | 06/19/ | Orders Only | [facility] | Fabrice Hylton, | Abnormal weight | | 2019 | | SYSTEM GENERIC OP | MD [address] | loss; Anxiety | | | | CONVERSION [address] | [address] [place], [place] | disorder; Chronic | | | | [address] [place], [place] | [address] | pain syndrome; | | | | [address] | | Obesity; Neuralgia | | | | [phone] | | and neuritis, | | | [...] | | | | | [place], | (Primary Dx); | | | | | [place] [address] | Presence of | | | | | [phone] | permanent cardiac | | | | [...] | | | | | | [place] [address] | | | | | | [phone] | | | | | | | [...]
--- OUTSIDE RECORDS SUMMARY | ~2019-11-12 | XMS | Encounter Summary ---
Demographics + + + | Address | [address] | | | [place] [address] | + + + | Home Phone [...] Team Providers + +------+ + | Care Fnp Name | Role | Phone | + [...] Provider Unknown | | | | | [place], [place] | [phone] | | | | | [address] | (Fax) | | | | | [phone] | | | +--------+ + + + [...] | | | | | | | #[id number], exp 07/2016 | | | | | [...] Dx); | | | | | [place] [address] | Presence of | | | | | [phone] | permanent cardiac | | | | [...] | | | | | | [place], | | | | | | [place] [address] | | | | | | [phone] | | | | | | | [...]
--- OUTSIDE RECORDS SUMMARY | ~2019-11-12 | XMS | Encounter Summary ---
Demographics + + + | Address | [address] | | | [place] [address] | + + + | Home Phone [...] Team Providers + +------+ + | Care Stoneworker Name | Role | Phone | + [...] W | Dx) | | | | [place] [address] [place] | [address] [place] | | | | | [place], [place] | [place] [address] | | | | | [address] | [phone] | | | | | [phone] | | | +--------+ + + + [...] + + + +---------+ + + | [place]-3 Fatty | CAPS, one capsule by | [...] 2019 | Monitor | | [address] [place] | Interrogation | | | | | [place], | (Primary Dx); | | | | | [place] [address] | Presence of | | | | | [phone] | permanent cardiac | | | | [...] W | | | | | | [place], | | | | | | [place] [address] | | | | | | [phone] | | | | | | | [...] W?MRN: | | | | | | [id number] | | | [id number] | | | his | | | [...] | | | ent/60 | | | [id number] | | | -5586- | | | [...] | | St. | | | [place] | | | y H. | | [...] | | St. | | | [place] | | | y H. | | [...] | | St. | | | [place] | | | y H. | | [...] | | St. | | | [place] | | | y H. | | [...] | | St. | | | [place] | | | y | | | [...] | | | ext. | | | [phone] | | | or go | | [...] + | [facility] | [address] | [place] | [phone] | | [facility] | | [address] | | | - LABORATORY | | [...] + | [address] [facility] | [address] | [place] | [phone] | | [facility] | | [address] | | | - LABORATORY | | [...] mL/min/1.73m2 | [facility] | | | LUXEMBOURGER | RATE,ESTIMATED | | MEDICAL | | | | mL/min/1.16c8Rabk than | | CENTER - | | [...] [address] | [place] | [phone] | | [facility] | | [address] | | | - LABORATORY | | [...] [address] | [place] | [phone] | | [facility] | | [address] | | | - LABORATORY | | | | + + + + + documented in this encounter Visit Diagnoses + + | Diagnosis | + + | Bronchitis - Primary Bronchitis, not specified as acute or chronic | + + documented in this encounter"
--- OUTSIDE RECORDS SUMMARY | ~2019-11-12 | XMS | Encounter Summary ---
Demographics + + + | Address | [address] | | | [place] [address] | + + + | Home Phone [...] Providers + +------+ + | Care Data Coder Operator Name | Role | Phone | [...] [place] | | | | | | [address] | | | | | | [phone] | | | +--------+ + + + [...] + + + +---------+ + + | [place]-3 Fatty | CAPS, one capsule by | [...] Dx); | | | | | [place] [address] | Presence of | | | | | [phone] | permanent cardiac | | | | [...] | | | | | | [place] [address] | | | | | | [phone] | | | | | | | | +--------+ + + + + documented as of this encounter Visit Diagnoses + + | Diagnosis | + + | Patient left after triage - Primary | + + documented in this encounter
--- OUTSIDE RECORDS SUMMARY | ~2019-11-12 | XMS | Encounter Summary ---
Demographics + + + | Address | [address] | | | [place] [address] | + + + | Home Phone [...] Team Providers + +------+ + | Care Caretaker Name | Role | Phone | [...] | | | | CENTER [address] [place] | [address] | (Primary Dx) | | | | [place], [place] | [place], [place] | | | | | [address] | [address] | | | | | [phone] | | | +--------+ + + + [...] + + + +---------+ + + | [place]-3 Fatty | CAPS, one capsule by | [...] 2019 | Monitor | | MD [address] [place] | Interrogation | | | | | [place], | (Primary Dx); | | | | | [place] [address] | Presence of | | | | | [phone] | permanent cardiac | | | | [...] W | | | | | | [place], | | | | | | [place] [address] | | | | | | [phone] | | | | | | | [...] W?MRN: | | | | | | [id number] | | | [id number] | | | his | | | [...] | | | ent/60 | | | [id number] | | | -5586- | | | [...] | | | St. | | | [place] | | | y | | | [...] | | | ext. | | | [address] | | | or go | | [...] | | | M.D. | | | Door And Arrival Attendant | | | al | | [...] | | | | | | [employer] | | | | | [...] ST. | [address] | [place] | [phone] | | [facility] | | [address] | | | - LABORATORY | | [...] [address] | [place] | [phone] | | [facility] | | [address] | | | - LABORATORY | | [...] [address] | [place] | [phone] | | [facility] | | [address] | | | - LABORATORY | | [...] mL/min/1.73m2 | . [place] | | | [place] | RATE,ESTIMATED | | MEDICAL | | | | mL/min/1.89g3Gkgd than | | CENTER - | | [...] ST. | [address] | [place] | [phone] | | [facility] | | [address] | | | - LABORATORY | | [...] ST. | [address] | [place], [place] | [phone] | | [facility] | | [address] | | | - LABORATORY | | [...] + | [facility] | [address] | [place] | [phone] | | [facility] | | [address] | | | - LABORATORY | | [...] SYDNI | | | | | | ([id number]) on 06/22/2018 | | | | | [...]
--- OUTSIDE RECORDS SUMMARY | ~2019-11-12 | XMS | Encounter Summary ---
Demographics + + + | Address | [address] | | | [place] [address] | + + + | Home Phone [...] Team Providers + +------+ + | Care Imcu Specialist Name | Role | Phone | + +------+ + | Kirk French MD | PCP | | + +------+ + Encounter Details +--------+ + + + + | Date | Type | Department | Care Team | Description | +--------+ + + + + | 11/16/ | Hospital | [facility] | Kirk French | Aneurysm (HCC) | | 2017 | Encounter | MED CTR ULTRASOUND | D, MD [address] | | | | | [address] [place] [place] | [address] | | | | | [place], [place] | [place] [address] | | | | | [address] | [phone] | | | | | [phone] | | | | | | | [...] | Monitor | | MD [address] [place] | Interrogation | | | | | [place], | (Primary Dx); | | | | | [place] [address] | Presence of | | | | | [phone] | permanent cardiac | | | | [...] W | | | | | | [place], | | | | | | [place] [address] | | | | | | [phone] | | | | | | | [...]
--- OUTSIDE RECORDS SUMMARY | ~2019-11-12 | XMS | Encounter Summary ---
Demographics + + + | Address | [address] | | | [place] [address] | + + + | Home Phone [...] Providers + +------+ + | Care Kitchen Hand Name | Role | Phone | [...] Provider Unknown | | | | | [place], [place] | [phone] | | | | | [address] | | | | | | [phone] | | | +--------+ + + + [...] + + + +---------+ + + | [place]-3 Fatty | CAPS, one capsule by [...] Dx); | | | | | [place] [address] | Presence of | | | | | [phone] | permanent cardiac | | | | [...] | | | | | | [place] [address] | | | | | | [phone] | | | | | | | [...]
--- OUTSIDE RECORDS SUMMARY | ~2019-11-12 | XMS | Encounter Summary ---
Demographics + + + | Address | [address] | | | [place] [address] | + + + | Home Phone [...] Team Providers + +------+ + | Care Concert Or Lecture Hall Manager Name | Role | Phone | [...] + + | 02/21/ | Office | [facility] | Silvia, | Coronary artery | | 2019 | Visit | CARDIOLOGY [address] | [place] [address] | disease involving | | | | [place], | [place], | [place] coronary | | | | [place] [address] | [place] [address] | artery of [place] | | | | [phone] | [phone] | heart without angina | | | [...] coronary artery d isease involving [place] coronary artery of [place] heart without angina pectoris, essential h [...] stay active. He enjoys hunting in his [place]. He has not had any [...] care Coronary artery disease involving [place] coronary artery of [place] heart without angina pectoris Cannabis abuse, [...] 3RD DOSE, CALL 911 100 tablet 3 [place]-3 Fatty Acids (SALMON OIL-1000 PO) CAPS, one capsule by mouth daily twice daily ondansetron (ZOFRAN ODT) 4 mg disintegrating tablet Take 4 mg by mouth. ONE TOUCH DELICA LANCETS [facility] [...] was found Confirmed by ANGELA MARADIAGA MD ([id number]) on 01/03/2019 8:10:39 PM LAB RESULTS reviewed during visit today primarily from [facility]: LIPID Lab Results Component Value Date [...] BNP 15 01/02/2019 I reviewed records from [facility] for angiogram results on 019 which is summarized in the HPI. RESULTS- I reviewed reports from [facility]: No results found. Left heart catheterization [...] Non-critical Coronary artery disease involving [place] coronary artery of [place] heart [facility] angina pectoris: [...] Symptoms with moderate exertion of t he [place] Heart Ass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 Heart failure stage [...] performed by Dr Juan Diego Gambino at [facility] on 01/30/2013.Patient had spontaneous PVC's [...] of [facility]yncope [facility]al [facility]. B. [...] this chart may have been created with [employer] voice recognition software. Occasi onal wrong-word [...] Dx); | | | | | [place] [address] | Presence of | | | | | [phone] | permanent cardiac | | | | [...] | | | | | | [place] [address] | | | | | | [phone] | | | | | | | [...]
--- OUTSIDE RECORDS SUMMARY | ~2019-11-12 | XMS | Encounter Summary ---
Demographics + + + | Address | [address] | | | [place] [address] | + + + | Home Phone [...] Providers + +------+ + | Care Analog Device Designer Name | Role | Phone | [...] | | PVCs | PAR[place] | [address] | | | | | Procedures | [address] | [address] | | | | | [place] OFFICE | [place] | [place] | | | | | CONSULTATION | [place], | [address] Phone: | | | | | NEW/ESTAB | [place] | [phone] | | | | | PATIENT 40 | [address] | Fax: | | | | | MIN | Phone: | [phone] | | | | | | [phone] | | | | | | | Fax: | | | | | | | [phone] | | +--------+--------+ + + + + Encounter Details +--------+---------+ + + + | Date | Type | Department | Care Team | Description | +--------+---------+ + + + | 11/30/ | Office | [facility] | Jay Gambino MD | Symptomatic PVCs | | 2015 | Visit | [place]IOLOGY [place] | [address] | (Primary Dx) | | | | HI4 [address] | [address] [place], | | | | | [facility] [address] [place] | [place] [address] | | | | | [address] | [phone] | | | | | [phone] | | | +--------+---------+ + + + [...] Gambino MD - 11/30/2014 5:37 PM PST [facility] [address] [place] [address] Patient Name: Moe Sanchez Date: 1960 Date [...] luz marcos as needed for Chest pain. 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 Should you have any questions or concerns, [...] 2018 | Monitor | | MD [address] | Interrogation | | | | | [place], | (Primary Dx); | | | | | [place] [address] | Presence of | | | | | [phone] | permanent cardiac | | | | [...] | | | | | | [place], | | | | | | [place] [address] | | | | | | [phone] | | | | | | | [...]
--- OUTSIDE RECORDS SUMMARY | ~2019-11-12 | XMS | Encounter Summary ---
Demographics + + + | Address | [address] | | | [place] [address] | + + + | Home Phone [...] Team Providers + +------+ + | Care Calculus Professor Name | Role | Phone | [...] + + | 08/24/ | Office | [facility] | Silvia, | Ascending thoracic | | 2018 | Visit | CARDIOLOGY [address] | PARISA Vernon [address] | aortic aneurysm | | | | [place], | [place], | ([facility]) (Primary Dx); | | | | [place] [address] | [place] [address] | Syncope, unspecified | | | | [phone] | [phone] | syncope type; | | | | | | Hypertension, | | | | | | unspecified type; | | | | | | Coronary artery | | | | | | disease involving | | | | | | [place] coronary | | | | | | artery of [place] | | | | | | heart [...] of non-critical coronary artery d isease involving [place] coronary artery of [place] heart without angina pectoris, essential h ypertension, [...] Preventative health care Coronary artery disease involving [place] coronary artery of [place] heart without angina pectoris Cannabis abuse, daily [...] by mouth Daily. 90 tabl et 1 [facility] [facility] (OSTEO BI-FLEX/5-LOXIN ADVANCED PO) Take [...] 3RD DOSE, CALL 911 100 tablet 3 [place]-3 Fatty Acids (SALMON OIL-1000 PO) CAPS, one [...] now present Confirmed by HIREN WINKLER, ANGELA ([id number]) on 07/28/2018 6:03:35 AM LAB RESULTS reviewed [...] PLTEX 157 04/11/2018 I reviewed records from [facility] for emergency department visit o n [...] ventricular arrhythmia performed by Dr. Gambino at [facility] on 01/30/2013. Patient had spontaneous [...] to go back in 3 days to [place] for an attempt of ablation under general [...] He is in class II of the [place] Heart [employer] f unctional class. There are [...] subsided. 2. Non-critical Coronary artery disease involving [place] coronary artery of [place] heart [facility] angina pectoris: A. Normal exercise sestamibi [...] this chart may have been created with [employer] voice recognition software. Occasi onal wrong-word [...] Dx); | | | | | [place] [address] | Presence of | | | | | [phone] | permanent cardiac | | | | [...] | | | | | | [place], | | | | | | [place] [address] | | | | | | [phone] | | | | | | | [...] | Coronary artery disease involving [place] coronary artery of [place] heart without | | angina pectoris | [...]
--- OUTSIDE RECORDS SUMMARY | ~2019-11-12 | XMS | Encounter Summary ---
Demographics + + + | Address | [address] | | | [place] [address] | + + + | Home Phone [...] Providers + +------+ + | Care E Commerce Architect Name | Role | Phone | [...] | | CARDIOLOGY [address] | PROGRAM DIRECTOR/AIR PERSONALITY [address] | faxed) | | | | [place], | [place] [facility], [place] | | | | | [place] [address] | [address] | | | | | [phone] | | | +--------+ + + + [...] | 2018 | Monitor | | [address] | Interrogation | | | | | [place], | (Primary Dx); | | | | | [place] [address] | Presence of | | | | | [phone] | permanent cardiac | | | | [...] W | | | | | | [place], | | | | | | [place] [address] | | | | | | [phone] | | | | | | | | +--------+ + + + + documented as of this encounter Visit Diagnoses Not on filedocumented in this encounter"
--- OUTSIDE RECORDS SUMMARY | ~2019-11-12 | XMS | Encounter Summary ---
Demographics + + + | Address | [address] | | | [place] [address] | + + + | Home Phone [...] Team Providers + +------+ + | Care Upsetter Helper Name | Role | Phone | [...] | | CARDIOLOGY [address] | Janeen CAMERA PERSON [address] | | | | | [place], | [place], | | | | | [place] [address] | [place] [address] | | | | | [phone] | [phone] | | | | | | | [...] 2019 | Monitor | | MD [address] | Interrogation | | | | | [place], | (Primary Dx); | | | | | [place] [address] | Presence of | | | | | [phone] | permanent cardiac | | | | [...] | | | | | | [place], | | | | | | [place] [address] | | | | | | [phone] | | | | | | | | +--------+ + + + + documented as of this encounter Visit Diagnoses Not on filedocumented in this encounter"
--- OUTSIDE RECORDS SUMMARY | ~2019-11-12 | XMS | Encounter Summary ---
Demographics + + + | Address | [address] | | | [place] [address] | + + + | Home Phone [...] + +------+ + | Care Senior Net Developer Name | Role | Phone | [...] Visit | CARDIOLOGY [address] | LEAD VULCANIZING OPERATOR [address] [place] | Dx) | | | | [place], | [place], [place] | | | | | [place] [address] | [address] | | | | | [phone] | | | +--------+---------+ + + + [...] Sanchez Date: December 21, 2012 : 1960 Cutting Machine Operator Helper: PARISA Velazquez Device Launch Check Out: Medtronic Sense (mV) Impedance (?) Capture (V) Capture (ms) A Lead 4-5.6 423 1.5 0.09 RV Lead >31.36 539 2.0 0.09 LV Lead Battery Impedance (?): 301 Battery Voltage (V): 2.8 VA Interval (ms): 140 AR Interval (ms): 210 VA Conduction: Mode Switch Events: N/A % of time: -TRANSIT SPECIALIST: 0.6 AP-TRANSIT SPECIALIST: 1.3 -VS: 23.9 AP-VS: 74.2 TRANSIT SPECIALIST: Magnetic Rate: 85 LINDA: 65 LEAH: [...] Dx); | | | | | [place] [address] | Presence of | | | | | [phone] | permanent cardiac | | | | [...] W | | | | | | [place], | | | | | | [place] [address] | | | | | | [phone] | | | | | | | [...]
--- OUTSIDE RECORDS SUMMARY | ~2019-11-12 | XMS | Encounter Summary ---
Demographics + + + | Address | [address] | | | [place] [address] | + + + | Home Phone [...] Team Providers + +------+ + | Care Pack Press Operator Name | Role | Phone [...] | unspecified | MD Jacek | [address] | | | | | type | [address] | [place], | | | | | Unintentiona | [place] | [place] [address] | | | | | l weight | [place], [place] | Phone: | | | | | loss | [address] | [phone] | | | | | Procedures | Phone: | Fax: | | | | | [place] GI IMAG | [phone] | [phone] | | | | | INTRALUMINAL | Fax: | | | | | | | [phone] | | | | | | ESOPHAGUS-IL [...] (Primary Dx); | | | | [address] [place], [place] | [place] [address] | Unintentional weight | | | | [address] | [phone] | loss | | | | [phone] | | | +--------+ + + + [...] Dx); | | | | | [place] [address] | Presence of | | | | | [phone] | permanent cardiac | | | | [...] | | | | | | [place], | | | | | | [place] [address] | | | | | | [phone] | | | | | | | [...]
--- OUTSIDE RECORDS SUMMARY | ~2019-11-12 | XMS | Encounter Summary ---
Demographics + + + | Address | [address] [place] [address] | | | [place] [address] | + + + | Home Phone [...] [place] | | | | | [address] | | + + + + + Care Team Providers + +------+ + | Care Oracle Business Analyst Name | Role | Phone [...] | | ILA Casper Rosa Maria | [facility] [place] | ED) | | | | Mailcode: Center | [address] | | | | | for Health and | [phone] | | | | | [facility], [facility] 2 | | | | | | [place], [place] | | | | | | [address] | | | | | | [phone] | | | +--------+ + + + [...]
--- OUTSIDE RECORDS SUMMARY | ~2019-11-12 | XMS | Encounter Summary ---
Demographics + + + | Address | [address] | | | [place] [address] | + + + | Home Phone [...] Providers + +------+ + | Care Log Raft Worker Name | Role | Phone | + +------+ + PCP | Unavailable | + +------+ + Encounter Details +--------+ + + + + | Date | Type | Department | Care Team | Description | +--------+ + + + + | 12/16/ | [facility] | [facility] | Naresh Mckeon | | | 2010 | Encounter | MED CTR SLEEP | MD Chaya [address] | | | | | CENTER [address] [place] | [place] | | | | | [place] | [place] [address] | | | | | [address] | [phone] | | | | | [phone] | | | +--------+ + + + [...] Dx); | | | | | [place] [address] | Presence of | | | | | [phone] | permanent cardiac | | | | [...] | | | | | | [place], | | | | | | [place] [address] | | | | | | [phone] | | | | | | | | +--------+ + + + + documented as of this encounter Visit Diagnoses Not on filedocumented in this encounter"
--- OUTSIDE RECORDS SUMMARY | ~2019-11-12 | XMS | Encounter Summary ---
Demographics + + + | Address | [address] | | | [place] [address] | + + + | Home Phone [...] Team Providers + +------+ + | Care Authorization Nurse Name | Role | Phone | [...] [place], [place] | | | | | [place] | | [address] Phone: | | | | | CYSTO/URETER | | [phone] | | | | | O | | Fax: | | | | | W/LITHOTRIPS | | [phone] | | | | | Y &INDWELL [...] + + | 04/13/ | Hospital | [facility] | Matthew Uriarte | Preoperative | | 2019 | Encounter | MED CTR OR INTRA OP | Dahl, MD [address] | clearance (Primary | | | | [address] | [place], [place] | Dx); Left ureteral | | | | [place] | [address] | calculus; Kidney | | | | [address] | | stones | | | | [phone] | | | +--------+ + + + [...] Care Everywhere.Kidney Stones, Treating: Ureteroscopic Stone Removal (Italian)Stents, Ureteral (Italian)documented in this encounter Medications at Time of [...] + + + +---------+ + + | [place]-3 Fatty | CAPS, one capsule by | [...] | | | | | | | [place] coronary | | | | | | | artery of [place] | | | | | | | [...] Dx); | | | | | [place] [address] | Presence of | | | | | [phone] | permanent cardiac | | | | [...] | | | | | | [place] [address] | | | | | | [phone] | | | | | | | [...] [facility] | | | | | | at:[phone]. | | | | + + + [...] | | | | | d by [email or web address]. It has not | | | | [...] at: 01 - [facility] [address] [facility], | REFERENCE LAB | | [place], [place] [id number] Contact Center Director: Yeny Rios MD, Phone: | ARSH - KINA | | [phone] | | + + + + + + + + | Performing | Address | City/State/Zipcode | Phone Number | | Organization | | | | + + + + + | REFERENCE LAB | [address] | [place] [address] | [phone] | | [facility] | Drive [...] ST. | [address] | [place], [place] | [phone] | | [facility] | | [address] | | | - LABORATORY | | [...] [address] | [place] | [phone] | | [facility] | | [address] | | | - LABORATORY | | [...] [address] | [place] | [phone] | | [facility] | | [address] | | | - LABORATORY | | [...] [address] | [place] | [phone] | | [facility] | | [address] | | | - LABORATORY | | [...] 11 | 9 - 23 mg/dL | [facility] | | | | | | [facility] | | | | | | MEDICAL | | | | | | CENTER - | | | | | | LABORATORY | | + + + + + + | Creatinine | 0.92 | 0.70 - 1.30 | [place] | | | | | mg/dL | [facility] | | | | | | MEDICAL | | | | | | CENTER - | | | | | | LABORATORY | | + + + + + + | eGFR if not | >60Comment: GLOMERULAR | >=60 | [place] | | | | FILTRATION | mL/min/1.73m2 | [facility] | | | ARGENTINE | RATE,ESTIMATED | | MEDICAL | | | | mL/min/1.54p9Znho than | | CENTER - | | [...] [address] | [place] | [phone] | | [facility] | | [address] | | | - LABORATORY | | [...] First | | | dose on [facility] 04/13/19 at 1400, | | | Start 8 hours after pre-op dose., | | | Post-op/Phase II | | + +---+ | | | + +---+ | albuterol 2.5 mg/3 mL nebulizer | | | solution 2.5 mg 2.5 mg, | | | Nebulization, ONCE PRN, Wheezing, | | | Starting [facility] 04/13/19 at 0917, | | | [...] < 40, | | | Starting [facility] 04/13/19 at 0917, For | | [...] | | | | | | | sfjcix-tzm-htjno use of at least | | | [...]
--- OUTSIDE RECORDS SUMMARY | ~2019-11-12 | XMS | Encounter Summary ---
Demographics + + + | Address | [address] | | | [place] [address] | + + + | Home Phone [...] Team Providers + +------+ + | Care Candy Vendor Name | Role | Phone | + +------+ + PCP | Unavailable | + +------+ + Encounter Details +--------+ + + + + | Date | Type | Department | Care Team | Description | +--------+ + + + + | 10/19/ | Hospital | [facility] | | | | 1992 | Encounter | MED CTR EMERGENCY | | | | | | CENTER [address] | | | | | | [place] | | | | | | [address] | | | | | | [phone] | | | +--------+ + + + [...] Dx); | | | | | [place] [address] | Presence of | | | | | [phone] | permanent cardiac | | | | [...] W | | | | | | [place], | | | | | | [place] [address] | | | | | | [phone] | | | | | | | | +--------+ + + + + documented as of this encounter Visit Diagnoses Not on filedocumented in this encounter"
--- OUTSIDE RECORDS SUMMARY | ~2019-11-12 | XMS | Encounter Summary ---
Demographics + + + | Address | [address] | | | [place] [address] | + + + | Home Phone [...] | CARDIOLOGY [address] | [address] [place] | Interrogation | | | | [place], | [place], | (Primary Dx); | | | | [place] [address] | [place] [address] | Presence of | | | | [phone] | [phone] | permanent cardiac | | | | [...] Dx); | | | | | [place] [address] | Presence of | | | | | [phone] | permanent cardiac | | | | [...] | | | | | | [place] [address] | | | | | | [phone] | | | | | | | [...] remote PDF scanned into | | | [employer] for remote interrogation results. Data collected by [...]
--- OUTSIDE RECORDS SUMMARY | ~2019-11-12 | XMS | Encounter Summary ---
Demographics + + + | Address | [address] | | | [place] [address] | + + + | Home Phone [...] + +------+ + | Care Law Enforcement Officer Name | Role | Phone | [...] | 01/04/ | Telephone | [facility] | Emmanuel Daniel MD | Other | | 2019 | | GASTROENTEROLOGY | [address] [place], [place] | | | | | [address] [place] | [address] [place], [place] | | | | | [address] [place], [place] | [address] | | | | | [address] | | | | | | [phone] | | | +--------+ + + + [...] Dx); | | | | | [place] [address] | Presence of | | | | | [phone] | permanent cardiac | | | | [...] W | | | | | | [place], | | | | | | [place] [address] | | | | | | [phone] | | | | | | | | +--------+ + + + + documented as of this encounter Visit Diagnoses Not on filedocumented in this encounter"
--- OUTSIDE RECORDS SUMMARY | ~2019-11-12 | XMS | Encounter Summary ---
Demographics + + + | Address | [address] | | | [place] [address] | + + + | Home Phone [...] Team Providers + +------+ + | Care Trading Assistant Name | Role | Phone | + +------+ + | Kirk French MD | PCP | | + +------+ + Encounter Details +--------+ + + + + | Date | Type | Department | Care Team | Description | +--------+ + + + + | 01/05/ | Orders Only | [facility] | Emmanuel Daniel MD | | | 2019 | | [facility] | [address], [place] | | | | | PATHOLOGY [address] | [address] [place], [place] | | | | | BLVD [place], [place] | [address] | | | | | [address] | | | | | | [phone] | | | +--------+ + + + [...] 2018 | Monitor | | MD [address] | Interrogation | | | | | [place], | (Primary Dx); | | | | | [place] [address] | Presence of | | | | | [phone] | permanent cardiac | | | | [...] W | | | | | | [place], | | | | | | [place] [address] | | | | | | [phone] | | | | | | | [...] | | | (atherosclerotic heart disease of [place] coronary artery without | | | angina [...] chronic or | | | microscopic colitis. BES:[facility]:C3NR GROSS DESCRIPTION: A. The | | | specimen, labeled "[place], duodenal biopsy" is received in formalin | | | and consists of seven 0.1-0.5 cm lin fragments. Entirely submitted in | | | (A1). B. The specimen, labeled "[place], right colon" is received | | | in formalin and consists of six 0.2-0.3 cm lin fragments. Entirely | | | submitted in (B1). C. The specimen, labeled "[place], left colon" | | | is received in formalin and consists of six 0.2-0.3 cm lin-pink | | | fragments. Entirely submitted in (C1). am:AMB:portillo PERFORMING | | | LABORATORY: The technical component was performed by [facility] | | | [facility]ostics, [address] [place] [address] (Sort Manager: | | | Kailey Stafford MD; CLIA# [id number]). Professional interpretation was | | | performed by [facility], [facility], [address] | | | [place] [address] (Sort Manager: Ishaan | | | Anthony Dao; CLIA#: [id number]). Diagnostician: Ishaan Dao | | | Pathologist [...]
--- OUTSIDE RECORDS SUMMARY | ~2019-11-12 | XMS | Encounter Summary ---
Demographics + + + | Address | [address] | | | [place] [address] | + + + | Home Phone [...] + + | 07/05/ | Hospital | [facility] MEDICAL | Conversion | Acute neck pain | | 2017 | Encounter | [facility] XRAY | Transaction, | | | | | [address] | Provider Unknown | | | | | [address] [place], [place] | [phone] | | | | | [address] | | | | | | [phone] | Apolonia Ruano | | | | | | MD Shelly [address] | | | | | | [place] | | | | | | [place], [place] | | | | | | [address] | | | | | | [phone] | | +--------+ + + + + [...] + + + +---------+ + + | Thida-3 Fatty | CAPS, one capsule by | [...] Dx); | | | | | [place] [address] | Presence of | | | | | [phone] | permanent cardiac | | | | [...] | | | | | [place], | | | | | | [place] [address] | | | | | | [phone] | | | | | | | [...]
--- OUTSIDE RECORDS SUMMARY | ~2019-11-12 | XMS | Encounter Summary ---
Demographics + + + | Address | [address] | | | [place] [address] | + + + | Home Phone [...] + +------+ + | Care Golf Club Facer Name | Role | Phone | [...] | 01/05/ | Telephone | [facility] | Emmanuel Daniel MD | Other | | 2019 | | GASTROENTEROLOGY | [address], [place] | | | | | [address] [place] | [address] [place], [place] | | | | | [address] [place], [place] | [address] | | | | | [address] | | | | | | [phone] | | | +--------+ + + + [...] Dx); | | | | | [place] [address] | Presence of | | | | | [phone] | permanent cardiac | | | | [...] W | | | | | | [place], | | | | | | [place] [address] | | | | | | [phone] | | | | | | | | +--------+ + + + + documented as of this encounter Visit Diagnoses Not on filedocumented in this encounter"
--- OUTSIDE RECORDS SUMMARY | ~2019-11-12 | XMS | Encounter Summary ---
Demographics + + + | Address | [address] | | | [place] [address] | + + + | Home Phone [...] Providers + +------+ + | Care Pharmacy Technician Assistant Name | Role | Phone | [...] 2015 | | CARDIOLOGY [address] | DECONTAMINATION WORKER [address] [place] | reprogramming/check | | | | [place], | [place], [place] | DO NOT DELETE | | | | [place] [address] | [address] | (Primary Dx); | | | | [phone] | | Pacemaker - | | | [...] Dx); | | | | | [place] [address] | Presence of | | | | | [phone] | permanent cardiac | | | | [...] W | | | | | | [place], | | | | | | [place] [address] | | | | | | [phone] | | | | | | | [...] | | 2. Coronary artery disease involving [place] coronary artery of | | | [place] heart without angina pectoris I25.10 414.01 ECHO [...]
--- OUTSIDE RECORDS SUMMARY | ~2019-11-12 | XMS | Encounter Summary ---
Demographics + + + | Address | [address] | | | [place] [address] | + + + | Home Phone [...] Team Providers + +------+ + | Care Classroom Aide Name | Role | Phone | [...] | | | | aortic | Janeen, SVP [employer]ITAL SALES | [place], | | | | | aneurysm | [address] | [place] [address] | | | | | (HCC) | [place] | Phone: | | | | | Abdominal | [place], | [phone] | | | | | aortic | [place] | Fax: | | | | | aneurysm | [address] | [phone] | | | | | (AAA) | Phone: | | | | | | without | [phone] | | | | | | rupture | Fax: | | | | | | (HCC) | [phone] | | | | | | Procedures [...] | | unspecified | MD Martell | [address] [place] [address] | | | | | type ER | [address] | [place] [address] | | | | | FUP | [place] | [place], | | | | | Procedures | [place], [place] | [place] [address] | | | | | FUP - SUW & | [address] | Phone: | | | | | MISHA PT, LAST | Phone: | [phone] | | | | | SEEN | [phone] | Fax: | | | | | 08-24-18 | Fax: | [phone] | | | | | | [phone] | | +--------+ + + + + + Encounter Details +--------+---------+ + + + | Date | Type | Department | Care Team | Description | +--------+---------+ + + + | 01/11/ | Office | [facility] | Silvia, | Coronary artery | | 2019 | Visit | CARDIOLOGY [address] | PARISA [place] [address] | disease involving | | | | [place], | [place], | [place] coronary | | | | [place] [address] | [place] [address] | artery of [place] | | | | [phone] | [phone] | heart without angina | | | [...] encounter Patient Instructions Patient Instructions Christine Rodriguez, Wheel And Caster Repairer - 01/11/2019 12:45 PM PST 1. You [...] Check-in time: 1. Check in at the [facility]. 2. Do not [...] Make sure you have a truck driver flatbed to take you home. Your truck driver flatbed will also need to sign you ou [...] hospital line at and ask for nursing machining department supervisor t o let them know you are cancelling . Blood test: Non-fasting Date Due: same day as CTA Where to go for labs: [facility]- [address] [facility] CTA of Chest and Abdomen: Date: [...] of non-critical coronary artery d isease involving [place] coronary artery of [place] heart without angina pectoris, essential h ypertension, [...] Preventative health care Coronary artery disease involving [place] coronary artery of [place] heart without angina pectoris Cannabis abuse, daily [...] 3RD DOSE, CALL 911 100 tablet 3 [place]-3 Fatty Acids (SALMON OIL-1000 PO) CAPS, one capsule by mouth daily twice daily ondansetron (ZOFRAN ODT) 4 mg disintegrating tablet Take 4 mg by mouth. ONE TOUCH DELICA LANCETS [facility] [...] was found Confirmed by ANGELA MARADIAGA MD ([id number]) on 01/03/2019 8:10:39 PM LAB RESULTS reviewed [...] RESULTS- I reviewed reports from [facility]: Xr Chest Ap Portable Result Date: [...] ASSESSMENT: 1. Non-critical Coronary artery disease involving [place] coronary artery of [place] heart wi out angina pectoris: A. Normal [...] Symptoms with moderate exertion of t he [place] Heart Ass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 Heart failure stage [...] go back in 3 days t o [place] for an attempt of ablation under [...] he has any further problems Christine Clemente Wheel And Caster Repairer am acting as a scribe on behalf of, and in the pres ence of PARISA Lomas. - Reji Newman 01/11/2019 13:46 IJaneen ARNP, personally performed the services described in this documentati on, as scribed in my presence and it is both accurate and complete. -PARISA Lomas 01/11/2019 Portions of this chart may have been created with [employer] voice recognition software. Occasi onal wrong-word or [...] Dx); | | | | | [place] [address] | Presence of | | | | | [phone] | permanent cardiac | | | | [...] | | | | | | [place] [address] | | | | | | [phone] | | | | | | | [...] + + | Coronary artery disease involving [place] coronary artery of [place] heart without | | angina pectoris - [...]
--- OUTSIDE RECORDS SUMMARY | ~2019-11-12 | XMS | Encounter Summary ---
Demographics + + + | Address | [address] | | | [place] [address] | + + + | Home Phone [...] Providers + +------+ + | Care Fire And Safety Helper Name | Role | Phone | [...] + | 04/10/ | Telephone | [facility] | Matthew Uriarte | Surgery Appointment | | 2019 | | [address] | MD Tawanna [address] | | | | | [place], [place] | [place], [place] | | | | | [address] | [address] | | | | | [phone] | | | +--------+ + + + [...] | | | | | [address] [place], | (Primary Dx); | | | | | [place] [address] | Presence of | | | | | [phone] | permanent cardiac | | | | [...] | | | | | | [place] [address] | | | | | | [phone] | | | | | | | | +--------+ + + + + documented as of this encounter Visit Diagnoses Not on filedocumented in this encounter"
--- OUTSIDE RECORDS SUMMARY | ~2019-11-12 | XMS | Encounter Summary ---
Demographics + + + | Address | [address] | | | [place] [address] | + + + | Home Phone [...] Providers + +------+ + | Care Health Policy Nurse Name | Role | Phone | + +------+ + PCP | Unavailable | + +------+ + Encounter Details +--------+ + + + + | Date | Type | Department | Care Team | Description | +--------+ + + + + | 03/08/ | [facility] | [facility] | Emmanuel Daniel MD | | | 2006 | Encounter | MED CTR GENERIC OP | [address] | | | | | CONV DEPT [address] | [address] | | | | | [place], | [address] | | | | | [place] [address] | | | | | | [phone] | | | +--------+ + + + [...] Dx); | | | | | [place] [address] | Presence of | | | | | [phone] | permanent cardiac | | | | [...] | | | | | | [place] [address] | | | | | | [phone] | | | | | | | | +--------+ + + + + documented as of this encounter Visit Diagnoses Not on filedocumented in this encounter"
--- OUTSIDE RECORDS SUMMARY | ~2019-11-12 | XMS | Encounter Summary ---
Demographics + + + | Address | [address] | | | [place] [address] | + + + | Home Phone [...] Providers + +------+ + | Care Design Agent Name | Role | Phone | [...] [address] | | | | | | [place], [place] | (Fax) | | | | | [address] | | | | | | [phone] | | | +--------+ + + + [...] 2019 | Monitor | | [address] | Interrogation | | | | | [place], | (Primary Dx); | | | | | [place] [address] | Presence of | | | | | [phone] | permanent cardiac | | | | [...] | | | | | | [place] [address] | | | | | | [phone] | | | | | | | | +--------+ + + + + documented as of this encounter Visit Diagnoses Not on filedocumented in this encounter"
--- OUTSIDE RECORDS SUMMARY | ~2019-11-12 | XMS | Encounter Summary ---
Demographics + + + | Address | [address] | | | [place] [address] | + + + | Home Phone [...] Team Providers + +------+ + | Care Backside Grinder Name | Role | Phone | [...] [address] | | | | | [place], [place] | [address] | | | | | [address] | [place] [address] | | | | | [phone] | [phone] | | | | | | | [...] Dx); | | | | | [place] [address] | Presence of | | | | | [phone] | permanent cardiac | | | | [...] W | | | | | | [place], | | | | | | [place] [address] | | | | | | [phone] | | | | | | | [...]
--- OUTSIDE RECORDS SUMMARY | ~2019-11-12 | XMS | Encounter Summary ---
Demographics + + + | Address | [address] | | | [place] [address] | + + + | Home Phone [...] + +------+ + | Care Community Service Manager Name | Role | Phone [...] | | | | CENTER [address] | [place], [place] | | | | | [place], [place] | [address] | | | | | [address] | | | | | | [phone] | | | +--------+ + + + [...] new doc you can try [facility] at [facility] documented in this encounter Medications at [...] + + + +---------+ + + | [place]-3 Fatty | CAPS, one capsule by | [...] 2019 | Monitor | | [place] [address] | Interrogation | | | | | [place], | (Primary Dx); | | | | | [place] [id number] | Presence of | | | | | [phone] | permanent cardiac | | | | [...] | | | | | | [place], | | | | | | [place] [address] | | | | | | [phone] | | | | | | | | +--------+ + + + + documented as of this encounter Visit Diagnoses + + | Diagnosis | + + | Situational stress - Primary Other psychological or physical stress, not elsewhere | | classified | + + documented in this encounter
--- OUTSIDE RECORDS SUMMARY | ~2019-11-12 | XMS | Encounter Summary ---
Demographics + + + | Address | [address] [place] [address] | | | [place] [address] | + + + | Home Phone [...] [place] | | | | | [address] | | + + + + + Care Team Providers + +------+ + | Care Assembly Detailer Name | Role | Phone | [...] as of this encounter Progress Notes Interface, Department Sales Manager In - 07/19/2006 3:05 AM PDTCLINIC DATE: 06/13/2002 [facility] REFERRING PHYSICIAN: Eugene Vera D.O. [address] [place] [address] Mr. Sanchez is a new patient. He [...] proceed. Martell Allen M.D. ELIZABETH / KATTY [id number] / [id number] / [id number] / [id number] cc: Eugene Vera D.O. [address] [place] [id number] signed by Interface, Department Sales Manager In at 07/19/2006 3:0 5 AM PDTdocumented in this encounter Plan of Treatment Not on filedocumented as of this encounter Visit Diagnoses Not on filedocumented in this encounter
--- OUTSIDE RECORDS SUMMARY | ~2019-11-12 | XMS | Encounter Summary ---
Demographics + + + | Address | [address] | | | [place] [address] | + + + | Home Phone [...] Providers + +------+ + | Care Litigation Partner Name | Role | Phone | + +------+ + | Kirk French MD | PCP | | + +------+ + Encounter Details +--------+---------+ + + + | Date | Type | Department | Care Team | Description | +--------+---------+ + + + | 01/25/ | Surgery | [facility] | Daljit Singletary, | CV LHC | | 2019 | | MED CTR CV INTRA OP | MD [address] | | | | | [address] | [address], | | | | | [place] | [place] [address] | | | | | [address] | [phone] | | | | | [phone] | | | +--------+---------+ + + + [...] by your healthcare provider Date Last Reviewed: 09/22/201619991932-5483 [employer]. [address] [place] [address]. All righ ts reserved. This information is [...] Interrogation | | | | | [place], | (Primary Dx); | | | | | [place] [address] | Presence of | | | | | [phone] | permanent cardiac | | | | [...] | | | | | | [place], | | | | | | [place] [address] | | | | | | [phone] | | | | | | | [...] (1960) MEDICAL RECORD NUMBER: | | | [id number] OF PROCEDURE: 01/25/2019 FISHING VESSEL OPERATOR: Daljit | | | MD Gemini [...] Sanchez, (1960) | | OF PROCEDURE: 01/25/2019PRIMARY DIRECTOR DENTAL SERVICES: Daljit Singletary MD PROCEDURES | | PERFORMED:Coronary [...] or lesion | | type, unspecified whether kotlik or transplanted heart | + + documented [...]
--- OUTSIDE RECORDS SUMMARY | ~2019-11-12 | XMS | Encounter Summary ---
Demographics + + + | Address | [address] | | | [place] [address] | + + + | Home Phone [...] Team Providers + +------+ + | Care Herbologist Name | Role | Phone | + [...] + + | 01/03/ | Telephone | [facility] | Emmanuel Daniel MD | Results, Pathology | | 2018 | | GASTROENTEROLOGY | [address] | (egd,colon) | | | | [address] | [address] [place], [place] | | | | | [address] [place], [place] | [address] | | | | | [address] | | | | | | [phone] | | | +--------+ + + + [...] 2019 | Monitor | | MD [address] | Interrogation | | | | | [place], | (Primary Dx); | | | | | [place] [address] | Presence of | | | | | [phone] | permanent cardiac | | | | [...] W | | | | | | [place], | | | | | | [place] [address] | | | | | | [phone] | | | | | | | | +--------+ + + + + documented as of this encounter Visit Diagnoses Not on filedocumented in this encounter"
--- OUTSIDE RECORDS SUMMARY | ~2019-11-12 | XMS | Encounter Summary ---
Demographics + + + | Address | [address] | | | [place] [address] | + + + | Home Phone [...] Providers + +------+ + | Care Strap Making Machine Operator Name | Role | [...] | | GASTROENTEROLOGY | [address] | | | | | [address] | [address] [place], [place] | | | | | [address] [place], [place] | [address] | | | | | [address] | | | | | | [phone] | | | +--------+ + + + [...] Dx); | | | | | [place] [address] | Presence of | | | | | [phone] | permanent cardiac | | | | [...] | | | | | | [place] [address] | | | | | | [phone] | | | | | | | | +--------+ + + + + documented as of this encounter Visit Diagnoses Not on filedocumented in this encounter"
--- OUTSIDE RECORDS SUMMARY | ~2019-11-12 | XMS | Encounter Summary ---
Demographics + + + | Address | [address] | | | [place] [address] | + + + | Home Phone [...] | | | | exertion | | [address] [place] | | | | | Chest pain | | [place], [place] | | | | | on exertion | | [address] | | | | | | | Phone: | | | | | | | [phone] | | | | | | | Fax: | | | | | | | [phone] | +--------+--------+ + + + + Encounter Details +--------+ + + + + | Date | Type | Department | Care Team | Description | +--------+ + + + + | 04/27/ | Emergency | [facility] | Martell Hart | Chest pain on | | 2014 - | | MED CTR MEDICAL | Sanjay Palacios MD | exertion (Primary | | | | [address] [place] | [address] | Dx); Dyspnea on | | 03/20/ | | [place] [address] | [place], [place] | exertion; Essential | | 2014 | | [phone] | [address] | hypertension; Acute | | | | | | chest pain; | | | | | [address], | Dizziness, | | | | | [address] | nonspecific; Mixed | | | | | [place], [place] | anxiety depressive | | | | | [address] | disorder; PUD | | | | | [phone] | (peptic ulcer | | | | [...] might be different f rom the original. [facility] DISCHARGE SUMMARY Pt. Name/Age/: Moe [...] 911 aka: NITROSTAT ONE TOUCH DELICA LANCETS [facility] Check glucose as needed for [...] Daily. to reduce urinary frequency - Lot #[id number], exp 07/2016 aka: RAPAFLO UNCODED MEDICATION - [...] hospital follow up Contact information: [address] [address] Call PARISA Russell. Specialty: Nurse Practitioner Why: As needed Contact information: [address] [place] [address] Condition: Patient being discharged with condition improved. Diet: Heart healthy, avoid acidic drinks and foods, spicy foods, too much coffee. Greater than 30 minutes were spent on discharge and coordination of post-hospital care. Electronically signed by: Thierry Fregoso DO, 03/20/2015 11:22 [facility] Portions of this chart may have been created with Yattos voice recognition software. Occasi onal wrong-word or [...] afford the prescribed medication, you can try gash-mai-rrxnvbv acid blockers, such as Pepcid AC, Tagamet, [...] or as directed by your healthcare provider [phone] [employer]. [address] [place] [address]. All righ ts reserved. This information is [...] + + + +---------+ + + | [place]-3 Fatty | CAPS, one capsule by | [...] | | | | | | | #[id number], exp 07/2016 | | | | | [...] DO - 03/19/2015 10:09 PM PDT . [facility] PROGRESS NOTE Patient: Moe Sanchez : 1960: Age: 55 y.o. MedRec: [id number] PCP: Kirk French Admission date: 03/18/2015 Hospital [...] 1708 03/18/15 1528 TROPONINI <0.01 <0.01 0.01 [facility] ECHOCARDIOGRAM REPORT STUDY DATE: 03/19/2015 PATIENT [...] changes. No results for input(s): PHART, PO2ART, JGE9QYQ, BGZ2HZG, BEART, X6JHHIPG in the last 168 h ours. No results for input(s): SPECSOURCE, PHPOCB, HCO3, TCO2, BEART, BE, SFRP5NOB in the last 16 8 hours. Invalid input(s): ZTPJP7UA, WDBY7CI Point of care glucose: No results for [...] minutes today. Thierry Fregoso DO 03/19/2015 22:09 [facility] Portions of this chart may have been created with Yattos voice recognition software. Occasi onal wrong-word or sound-alike substitutions may have occurred due to the inherent granger itations of voice recognition software. Please read the chart carefully and recognize, using context, where these substitutions have occurred Belén Cho RN - 03/19/2015 11:03 AM [id number] Report given to Marlen morejon who is [...] Dx); | | | | | [place] [address] | Presence of | | | | | [phone] | permanent cardiac | | | | [...] | | | | | | [place] [address] | | | | | | [phone] | | | | | | | [...] Performed At | + + + | [facility] ECHOCARDIOGRAM REPORT | | | STUDY [...] [facility] 03/19/2015 15:44 | | | Sales Support Associate: Dewey Valdez RDMS | | + [...] [address] | [place] | [phone] | | [facility] | | [address] | | | - LABORATORY | | [...] | | | | | [address] [place] | | | | | | [...] | mL/min/1.73m2 | MICHELLE | | | INDONESIAN | RATE,ESTIMATED | | MEDICAL | | | | mL/min/1.02g2Fkmm than | | CENTER - | | [...] [address] | [place] | [phone] | | [facility] | | [address] | | | - LABORATORY | | [...] [address] | [place] | [phone] | | [facility] | | [address] | | | - LABORATORY | | [...] ST. | [address] | [place] | [phone] | | [facility] | | [address] | | | - LABORATORY | | [...] [address] | [place] | [phone] | | [facility] | | [address] | | | - LABORATORY | | [...] [address] | [place] | [phone] | | [facility] | | [address] | | | - LABORATORY | | [...] [address] | [place] | [phone] | | [facility] | | [address] | | | - LABORATORY | | [...] + | [facility] | [address] | [place] | [phone] | | [facility] | | [address] | | | - LABORATORY | | [...] + | [facility] | [address] | [place] | [phone] | | [facility] | | [address] | | | - LABORATORY | | [...] [address] | [place] | [phone] | | [facility] | | [address] | | | - LABORATORY | | [...] | [facility] | | | INDONESIAN | RATE,ESTIMATED | | MEDICAL | | | | mL/min/1.00o5Udup than | | CENTER - | | [...] + | [facility] | [address] | [place] | [phone] | | [facility] | | [address] | | | - LABORATORY | | [...] | | | | g/dL | [facility]. [facility] | | | | [...] [address] | [place] | [phone] | | [facility] | | [address] | | | - LABORATORY | | [...]
--- OUTSIDE RECORDS SUMMARY | ~2019-11-12 | XMS | Encounter Summary ---
Demographics + + + | Address | [address] | | | [place] [address] | + + + | Home Phone [...] Providers + +------+ + | Care Dip Lube Operator Name | Role | Phone | [...] W | reprogramming/check | | | | [place], | [address] [place] | DO NOT DELETE | | | | [place] [address] | [place] [address] | (Primary Dx); | | | | [phone] | [phone] | Pacemaker - | | | | [...] | | | | | [address] [place], | (Primary Dx); | | | | | [place] [address] | Presence of | | | | | [phone] | permanent cardiac | | | | [...] | | | | | | [place] [address] | | | | | | [phone] | | | | | | | [...]
--- OUTSIDE RECORDS SUMMARY | ~2019-11-12 | XMS | Encounter Summary ---
Demographics + + + | Address | [address] [place] [address] | | | [place] [address] | + + + | Home Phone [...] [place] | | | | | [address] | | + + + + + Care Team Providers + +------+ + | Care Food Consultant Name | Role | Phone | [...] | [facility] at [facility] [address] | MD [address] | | | | | [address] | [facility] [place] | | | | | Mailcode: Center | [address] | | | | | for Health and | [phone] | | | | | [facility], [facility] [address] | | | | | | [place], [place] | | | | | | [address] | | | | | | [phone] | | | +--------+ + + + [...]
--- OUTSIDE RECORDS SUMMARY | ~2019-11-12 | XMS | Encounter Summary ---
Demographics + + + | Address | [address] | | | [place] [address] | + + + | Home Phone [...] Providers + +------+ + | Care School Photographer Name | Role | Phone | + +------+ + PCP | Unavailable | + +------+ + Encounter Details +--------+ + + + + | Date | Type | Department | Care Team | Description | +--------+ + + + + | 07/20/ | [facility] | Hunter Antunez, | | | 2009 - | Encounter | MED CTR MED ONC | [address] | | | | | [address] [place] | [place] | | | 07/24/ | | [place] [address] | [address] | | | 2009 | | [phone] | | | +--------+ + + + [...] 2019 | Monitor | | [address] | Interrogation | | | | | [place], | (Primary Dx); | | | | | [place] [address] | Presence of | | | | | [phone] | permanent cardiac | | | | [...] W | | | | | | [place], | | | | | | [place] [address] | | | | | | [phone] | | | | | | | | +--------+ + + + + documented as of this encounter Visit Diagnoses Not on filedocumented in this encounter"
--- OUTSIDE RECORDS SUMMARY | ~2019-11-12 | XMS | Encounter Summary ---
Demographics + + + | Address | [address] | | | [place] [address] | + + + | Home Phone [...] Team Providers + +------+ + | Care Commissary Production Supervisor Name | Role | Phone [...] [address] | | | | | [place], | [place], | | | | | [place] [address] | [place] [address] | | | | | [phone] | [phone] | | | | | | | [...] Dx); | | | | | [place] [address] | Presence of | | | | | [phone] | permanent cardiac | | | | [...] W | | | | | | [place], | | | | | | [place] [address] | | | | | | [phone] | | | | | | | | +--------+ + + + + documented as of this encounter Visit Diagnoses Not on filedocumented in this encounter"
--- OUTSIDE RECORDS SUMMARY | ~2019-11-12 | XMS | Encounter Summary ---
Demographics + + + | Address | [address] | | | [place] [address] | + + + | Home Phone [...] Team Providers + +------+ + | Care Ear Nose Throat Surgeon Name | Role | Phone | [...] 2019 | | GASTROENTEROLOGY | [address] | | | | | [address] [place] | [address] [place], [place] | | | | | [address] [place], [place] | [address] | | | | | [address] | | | | | | [phone] | | | +--------+--------+ + + + [...] | | | | | [address] [place], | (Primary Dx); | | | | | [place] [address] | Presence of | | | | | [phone] | permanent cardiac | | | | [...] | | | | | | [place] [address] | | | | | | [phone] | | | | | | | | +--------+ + + + + documented as of this encounter Visit Diagnoses Not on filedocumented in this encounter"
--- OUTSIDE RECORDS SUMMARY | ~2019-11-12 | XMS | Encounter Summary ---
Demographics + + + | Address | [address] | | | [place] [address] | + + + | Home Phone [...] Providers + +------+ + | Care Acid Tender Name | Role | Phone | [address] | | | | | | [place], [place] | (Fax) | | | | | [address] | | | | | | [phone] | | | +--------+ + + + [...] 2019 | Monitor | | [address] [place] | Interrogation | | | | | [place], | (Primary Dx); | | | | | [place] [address] | Presence of | | | | | [phone] | permanent cardiac | | | | [...] | | | | | | [place] [address] | | | | | | [phone] | | | | | | | | +--------+ + + + + documented as of this encounter Visit Diagnoses Not on filedocumented in this encounter"
--- OUTSIDE RECORDS SUMMARY | ~2019-11-12 | XMS | Encounter Summary ---
Demographics + + + | Address | [address] | | | [place] [address] | + + + | Home Phone [...] Providers + +------+ + | Care Environmental Safety Specialist Name | Role | Phone | [...] + + | 01/05/ | Office | [facility] | Silvia, | Pacemaker - | | 2018 | Visit | CARDIOLOGY [address] | [address] [place] [address] | [employer] - [id number] | | | | [place], | [place], | [employer] [place] | | | | [place] [address] | [place] [address] | 06/14/2009 (Primary | | | | [phone] | [phone] | Dx); Chest pain, | | | [...] involving | | | | | | naknek coronary | | | | | | artery of naknek | | | | | | heart [...] of non-critical coronary artery d isease involving naknek coronary artery of naknek heart without angina pectoris, essential h ypertension, [...] pain. He went to the ER in [place] because th e NTG didn't relieved the pain. He was diagnosed with bronchitis. Otherwise he has had no ot her symptoms. He has had a good energy level. He tries to stay active. He has joined a [employer] gym and trying to exercise more often. [...] Preventative health care Coronary artery disease involving naknek coronary artery of naknek heart without angina pectoris Cannabis abuse, daily [...] mouth every evening 90 tablet 0 [facility] (OSTEO BI-FLEX/5-LOXIN ADVANCED [...] 3RD DOSE, CALL 911 100 tablet 3 [place]-3 Fatty Acids (SALMON OIL-1000 PO) CAPS, one [...] RESULTS reviewed during visit today primarily from [facility]: LIPID Lab Results Component Value [...] 131 (A) 10/18/2017 I reviewed records from [facility] for office visit on 01/2017 [...] overload. 2. Non-critical Coronary artery disease involving naknek coronary a rtery of naknek heart without angina pectoris: A. Normal exercise [...] to go back in 3 days to [place] for an attempt of ablation under general [...] a normal stable device function. Estimated remaining [facility] longevity is 3.5 years.. 5. Lightheadedness and [...] this chart may have been created with [employer] voice recognition software. Occasi onal wrong-word or [...] Dx); | | | | | [place] [address] | Presence of | | | | | [phone] | permanent cardiac | | | | [...] W | | | | | | [place], | | | | | | [place] [address] | | | | | | [phone] | | | | | | | [...] involving | | | | | | naknek coronary | | | | | | artery of naknek | | | | | | heart [...] SYDNI | | | | | | ([id number]) on 01/06/2018 | | | | | [...] + + | Coronary artery disease involving naknek coronary artery of naknek heart without | | angina pectoris | + + | Hyperlipidemia, mixed Mixed hyperlipidemia | + + | Hypertension, unspecified type | + + | Syncope, unspecified syncope type | + + | Ascending thoracic aortic aneurysm (HCC) Thoracic aneurysm without mention of rupture | + + documented in this encounter
--- OUTSIDE RECORDS SUMMARY | ~2019-11-12 | XMS | Encounter Summary ---
Demographics + + + | Address | [address] | | | [place] [address] | + + + | Home Phone [...] | CARDIOLOGY [address] | [address] | card ) | | | | [place], | [place], | | | | | [place] [address] | [place] [address] | | | | | [phone] | [phone] | | | | | | | [...] Dx); | | | | | [place] [address] | Presence of | | | | | [phone] | permanent cardiac | | | | [...] W | | | | | | [place], | | | | | | [place] [address] | | | | | | [phone] | | | | | | | | +--------+ + + + + documented as of this encounter Visit Diagnoses Not on filedocumented in this encounter"
--- OUTSIDE RECORDS SUMMARY | ~2019-11-12 | XMS | Encounter Summary ---
Demographics + + + | Address | [address] [place] [address] | | | [place] [address] | + + + | Home Phone [...] [place] | | | | | [address] | | + + + + + Care Team Providers + +------+ + | Care Horologist Name | Role | Phone | + [...] | | | | | [place] | [facility] | | | | | | [place], [place] | [place], [place] | | | | | | [address] | [address] | | | | | | Phone: | Phone: | | | | | | [phone] | [phone] | | | | | | Fax: | Fax: | | | | | | [phone] | [phone] | +--------+--------+ + + + + Encounter Details +--------+---------+ + + + | Date | Type | Department | Care Team | Description | +--------+---------+ + + + | 09/28/ | Office | Digestive Health | Bridgette Rios, | Chronic diarrhea | | 2019 | Visit | [facility] [address] | [address] | (Primary Dx); | | | | [address] | [place], [place] | Abdominal cramping; | | | | Mailcode: [place] | [address] | Unintentional weight | | | | for Health and | [phone] | loss | | | | [facility], [facility] | | | | | | [place], [place] | | | | | | [address] | | | | | | [phone] | | | +--------+---------+ + + + [...] some lab orders to [facility] 2. 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 Gastroenterology Clinic [facility] [...] disease. CT scan done through [facility] November show ed mild diverticulosis [...] of Present Illness: Here with his from [place] for second opinion regarding severe abdominal cramps, isreal rrhea and weight loss following a GI illness contracted during a trip to [facility]. He reports that 2 years ago he was traveling in [facility] and he had some suspicious seafood. He develo ps profound bloody diarrhea with severe abdominal pain. He was hospitalized in [facility] and w as treated with [...] file Gets together: Not on file Attends baptist service: Not on file Active member of [...] Plan and Recommendations: 1. [facility] in [place] for stool studies as outlined above 2. If negative and symptoms persist, recommend capsule endoscopy (this could be completed b y local precision filer hand or he could return to [place] for this test) 3. Nortryptiline 25mg q HS with instruction to titrate to 50mg q HS after 2 weeks if tolera kevin Follow-Up: with local precision filer hand Counseling Time: I spent a total of 35 minutes with this patient, of which greater than 50 % of the time was spent in counseling. Specific issues that were discussed included a revie w of the disease, diagnostic tools that help in our management plans for the patient's chron ic diarrhea, abdominal cramping and weight loss and goals for treatment. Bridgette Rios MD Kitchen Stewardess Gastroenterology documented in this e ncounter Plan [...]
--- OUTSIDE RECORDS SUMMARY | ~2019-11-12 | XMS | Encounter Summary ---
Demographics + + + | Address | [address] | | | [place] [address] | + + + | Home Phone [...] [address] | | | | | | [place], [place] | (Fax) | | | | | [address] | | | | | | [phone] | | | +--------+ + + + [...] Dx); | | | | | [place] [address] | Presence of | | | | | [phone] | permanent cardiac | | | | [...] | | | | | | [place] [address] | | | | | | [phone] | | | | | | | | +--------+ + + + + documented as of this encounter Visit Diagnoses Not on filedocumented in this encounter"
--- OUTSIDE RECORDS SUMMARY | ~2019-11-12 | XMS | Encounter Summary ---
Demographics + + + | Address | [address] | | | [place] [address] | + + + | Home Phone [...] Team Providers + +------+ + | Care Pecan Huller Name | Role | Phone | + [...] [address] | | | | | [place], | [place], | | | | | [place] [address] | [place] [address] | | | | | [phone] | [phone] | | | | | | | [...] | 2018 | Monitor | | [address] [place] | Interrogation | | | | | [place], | (Primary Dx); | | | | | [place] [address] | Presence of | | | | | [phone] | permanent cardiac | | | | [...] W | | | | | | [place], | | | | | | [place] [address] | | | | | | [phone] | | | | | | | [...] Comment | + + | [facility] [place] | + + + +---------+ + + [...] Comment | + + | [facility] [place] | + + + +---------+ + + [...]
--- OUTSIDE RECORDS SUMMARY | ~2019-11-12 | XMS | Encounter Summary ---
Demographics + + + | Address | [address] | | | [place] [address] | + + + | Home Phone [...] [address] | | | | | | [place], [place] | (Fax) | | | | | [address] | | | | | | [phone] | | | +--------+ + + + [...] 2019 | Monitor | | [address] | Interrogation | | | | | [place], | (Primary Dx); | | | | | [place] [address] | Presence of | | | | | [phone] | permanent cardiac | | | | [...] | | | | | | [place] [address] | | | | | | [phone] | | | | | | | | +--------+ + + + + documented as of this encounter Visit Diagnoses Not on filedocumented in this encounter"
--- OUTSIDE RECORDS SUMMARY | ~2019-11-12 | XMS | Encounter Summary ---
Demographics + + + | Address | [address] | | | [place] [address] | + + + | Home Phone [...] | | | | CENTER [address] | [place] | (Primary Dx) | | 07/28/ | | [place] | [address] | | | 2017 | | [address] | | | | | | [phone] | | | +--------+ + + + [...] + + + +---------+ + + | [place]-3 Fatty | CAPS, one capsule by | [...] Dx); | | | | | [place] [address] | Presence of | | | | | [phone] | permanent cardiac | | | | [...] | | | | | | [place] [address] | | | | | | [phone] | | | | | | | [...] W?MRN: | | | | | | [id number] | | | [id number] | | | his | | | [...] | | | ent/60 | | | [id number] | | | -5586- | | | [...] | | | St. | | | [place] | | | y | | | [...] | | | ext. | | | [address] | | | or go | | [...] | | | M.D. | | | Industrial Green Systems Designer | | | al | | | [...] | | | | | | [employer] | | | | | [...] + | [facility] | [address] | [place] | [phone] | | [facility] | | [address] | | | - LABORATORY | | [...] | | | FILTRATION | mL/min/1.73m2 | [facility] | | | LAO | RATE,ESTIMATED | | MEDICAL | | | | mL/min/1.04l7Aqmo than | | CENTER - | | [...] | | | | | mg/dL | [facility] | | | | | | MEDICAL [...] [address] | [place] | [phone] | | [facility] | | [address] | | | - LABORATORY | | [...] + | [facility] | [address] | [place] | [phone] | | [facility] | | [address] | | | - LABORATORY | | [...] | | | | ANGELA MARADIAGA MD ([id number]) | | | | | | on [...]
--- OUTSIDE RECORDS SUMMARY | ~2019-11-12 | XMS | Encounter Summary ---
Demographics + + + | Address | [address] | | | [place] [address] | + + + | Home Phone [...] Providers + +------+ + | Care Video Recorder Mechanic Name | Role | Phone | + +------+ + PCP | Unavailable | + +------+ + Encounter Details +--------+ + + + + | Date | Type | Department | Care Team | Description | +--------+ + + + + | 09/13/ | [facility] | [facility] | Jonathan, | | | 2009 | Encounter | MED CTR EMERGENCY | Martell Cr MD [address] | | | | | CENTER [address] | [place] | | | | | [place] | [place] [address] | | | | | [address] | [phone] | | | | | [phone] | | | +--------+ + + + [...] Dx); | | | | | [place] [address] | Presence of | | | | | [phone] | permanent cardiac | | | | [...] | | | | | | [place] [address] | | | | | | [phone] | | | | | | | | +--------+ + + + + documented as of this encounter Visit Diagnoses Not on filedocumented in this encounter"
--- OUTSIDE RECORDS SUMMARY | ~2019-11-12 | XMS | Encounter Summary ---
Demographics + + + | Address | [address] | | | [place] [address] | + + + | Home Phone [...] Providers + +------+ + | Care Measurement Supervisor Name | Role | Phone | [...] 2019 | | GASTROENTEROLOGY | [address], [place] | | | | | [address] [place] | [address] [place], [place] | | | | | [address] [place], [place] | [address] | | | | | [address] | | | | | | [phone] | | | +--------+ + + + [...] Dx); | | | | | [place] [address] | Presence of | | | | | [phone] | permanent cardiac | | | | [...] W | | | | | | [place], | | | | | | [place] [address] | | | | | | [phone] | | | | | | | | +--------+ + + + + documented as of this encounter Visit Diagnoses Not on filedocumented in this encounter"
--- OUTSIDE RECORDS SUMMARY | ~2019-11-12 | XMS | Encounter Summary ---
Demographics + + + | Address | [address] | | | [place] [address] | + + + | Home Phone [...] Providers + +------+ + | Care Statistical Clerk Advertising Name | Role | Phone | [...] + | 02/27/ | Telephone | [facility] | [place], | Chest Pain (Patient | | 2013 | | CARDIOLOGY [address] | Janeen, FIELD PROFESSIONAL [address] | having chest pain) | | | | [place], | [place], | | | | | [place] [address] | [place] [address] | | | | | [phone] | [phone] | | | | | | | [...] Dx); | | | | | [place] [address] | Presence of | | | | | [phone] | permanent cardiac | | | | [...] | | | | | | [place] [address] | | | | | | [phone] | | | | | | | | +--------+ + + + + documented as of this encounter Visit Diagnoses Not on filedocumented in this encounter"
--- OUTSIDE RECORDS SUMMARY | ~2019-11-12 | XMS | Encounter Summary ---
Demographics + + + | Address | [address] | | | [place] [address] | + + + | Home Phone [...] Providers + +------+ + | Care Dermatology Physician Assistant Name | Role | Phone | + +------+ + PCP | Unavailable | + +------+ + Encounter Details +--------+ + + + + | Date | Type | Department | Care Team | Description | +--------+ + + + + | 01/31/ | Hospital | [facility] | | | | 2008 | Encounter | MED CTR EMERGENCY | | | | | | [place] [address] | | | | | | [place] | | | | | | [address] | | | | | | [phone] | | | +--------+ + + + [...] Dx); | | | | | [place] [address] | Presence of | | | | | [phone] | permanent cardiac | | | | [...] W | | | | | | [place], | | | | | | [place] [address] | | | | | | [phone] | | | | | | | | +--------+ + + + + documented as of this encounter Visit Diagnoses Not on filedocumented in this encounter"
--- OUTSIDE RECORDS SUMMARY | ~2019-11-12 | XMS | Encounter Summary ---
Demographics + + + | Address | [address] | | | [place] [address] | + + + | Home Phone [...] Providers + +------+ + | Care Business Applications Specialist Name | Role | Phone [...] Provider Unknown | | | | | [place], [place] | [phone] | | | | | [address] | | | | | | [phone] | | | +--------+ + + + [...] + + + +---------+ + + | [place]-3 Fatty | CAPS, one capsule by | [...] | | | | | | | #[id number], exp 07/2016 | | | | | [...] | Interrogation | | | | | [facility] | (Primary Dx); | | | | | [place] [id number] | Presence of | | | | | [phone] | permanent cardiac | | | | [...] | | | | | | [place] [address] | | | | | | [phone] | | | | | | | [...]
--- OUTSIDE RECORDS SUMMARY | ~2019-11-12 | XMS | Encounter Summary ---
Demographics + + + | Address | [address] | | | [place] [address] | + + + | Home Phone [...] Team Providers + +------+ + | Care Mainframe Architect Name | Role | Phone | [...] [place] | | | | | | [address] | | | | | | [phone] | | | +--------+ + + + [...] | 2018 | Monitor | | [address] | Interrogation | | | | | [place], | (Primary Dx); | | | | | [place] [address] | Presence of | | | | | [phone] | permanent cardiac | | | | [...] W | | | | | | [place], | | | | | | [place] [address] | | | | | | [phone] | | | | | | | | +--------+ + + + + documented as of this encounter Visit Diagnoses Not on filedocumented in this encounter"
--- OUTSIDE RECORDS SUMMARY | ~2019-11-12 | XMS | Encounter Summary ---
Demographics + + + | Address | [address] | | | [place] [address] | + + + | Home Phone [...] Team Providers + +------+ + | Care Paratransit Driver Name | Role | Phone | [...] | 06/17/ | Telephone | [facility] [place] | [place], | Lab Order (due for | | 2015 | | CARDIOLOGY [address] | [place] [address] | fasting labs prior | | | | [place], | [place], | to appt) | | | | [place] [address] | [place] [address] | | | | | [phone] | [phone] | | | | | | | [...] 2019 | Monitor | | [address] | Interrogation | | | | | [place], | (Primary Dx); | | | | | [place] [address] | Presence of | | | | | [phone] | permanent cardiac | | | | [...] | | | | | | [place] [address] | | | | | | [phone] | | | | | | | | +--------+ + + + + documented as of this encounter Visit Diagnoses + + | Diagnosis | + + | Hyperlipidemia, mixed - Primary Mixed hyperlipidemia | + + documented in this encounter"
--- OUTSIDE RECORDS SUMMARY | ~2019-11-12 | XMS | Encounter Summary ---
Demographics + + + | Address | [address] | | | [place] [address] | + + + | Home Phone [...] + +------+ + | Care Motion Picture Film Examiner Name | Role | Phone | [...] 2019 | | GASTROENTEROLOGY | [address], [place] | | | | | [address] [place] | [address] [place], [place] | | | | | [address] [place], [place] | [address] | | | | | [address] | | | | | | [phone] | | | +--------+ + + + [...] Dx); | | | | | [place] [address] | Presence of | | | | | [phone] | permanent cardiac | | | | [...] | | | | | | [place] [address] | | | | | | [phone] | | | | | | | | +--------+ + + + + documented as of this encounter Visit Diagnoses Not on filedocumented in this encounter"
--- OUTSIDE RECORDS SUMMARY | ~2019-11-12 | XMS | Encounter Summary ---
Demographics + + + | Address | [address] | | | [place] [address] | + + + | Home Phone [...] 12/09/ | Telephone | [facility] | Emmanuel Daniel MD | Appointment (EGD, | | 2017 | | GASTROENTEROLOGY | [address], [place] | colon Rescheduled to | | | | [address] [place] | [address] | December 24 due to | | | | [address] [place] | [address] | illness) | | | | [address] | | | | | | [phone] | | | +--------+ + + + [...] Dx); | | | | | [place] [address] | Presence of | | | | | [phone] | permanent cardiac | | | | [...] | | | | | | [place] [address] | | | | | | [phone] | | | | | | | | +--------+ + + + + documented as of this encounter Visit Diagnoses Not on filedocumented in this encounter"
--- OUTSIDE RECORDS SUMMARY | ~2019-11-12 | XMS | Encounter Summary ---
Demographics + + + | Address | [address] | | | [place] [address] | + + + | Home Phone [...] Medication Refill | | 2019 | | [facility] | MD Bre[address] | | | | | [facility] [address] | [address] | | | | | [address] | [place] [address] | | | | | [place], [place] | [phone] | | | | | [address] | | | | | | [phone] | | | +--------+--------+ + + + [...] | | | | | [address] [place], | (Primary Dx); | | | | | [place] [address] | Presence of | | | | | [phone] | permanent cardiac | | | | [...] | | | | | | [place] [address] | | | | | | [phone] | | | | | | | | +--------+ + + + + documented as of this encounter Visit Diagnoses Not on filedocumented in this encounter"
--- OUTSIDE RECORDS SUMMARY | ~2019-11-12 | XMS | Encounter Summary ---
Demographics + + + | Address | [address] | | | [place] [address] | + + + | Home Phone [...] Providers + +------+ + | Care Certified Court/Medical Interpreter Name | Role | Phone | [...] [address] | | | | | [place], | [place], | | | | | [place] [address] | [place] [address] | | | | | [phone] | | | | | | | [...] | 2018 | Monitor | | [address] [place] | Interrogation | | | | | [place], | (Primary Dx); | | | | | [place] [address] | Presence of | | | | | [phone] | permanent cardiac | | | | [...] W | | | | | | [place], | | | | | | [place] [address] | | | | | | [phone] | | | | | | | [...]
--- OUTSIDE RECORDS SUMMARY | ~2019-11-12 | XMS | Encounter Summary ---
Demographics + + + | Address | [address] | | | [place] [address] | + + + | Home Phone [...] Team Providers + +------+ + | Care Sous Chef Kitchen Manager Name | Role | Phone | [...] | Visit | CARDIOLOGY [address] | MELT SUPERINTENDANT [address] [place] | Dx) | | | | [place], | [place], [place] | | | | | [place] [address] | [address] | | | | | [phone] | | | +--------+---------+ + + + [...] Sanchez Date: December 21, 2012 : 1960 Tube Making Machine Operator: PARISA Velazquez Device Boat Laborer: Medtronic Sense (mV) Impedance (?) Capture (V) Capture (ms) A Lead 4-5.6 423 1.5 0.09 RV Lead >31.36 539 2.0 0.09 LV Lead Battery Impedance (?): 301 Battery Voltage (V): 2.8 IA Interval (ms): 140 AR Interval (ms): 210 VA Conduction: Mode Switch Events: N/A % of time: -COGENERATION OPERATOR: 0.6 AP-COGENERATION OPERATOR: 1.3 -VS: 23.9 AP-VS: 74.2 COGENERATION OPERATOR: Magnetic Rate: 85 LINDA: 65 LEAH: [...] Dx); | | | | | [place] [address] | Presence of | | | | | [phone] | permanent cardiac | | | | [...] | | | | | | [place] [address] | | | | | | [phone] | | | | | | | [...]
--- OUTSIDE RECORDS SUMMARY | ~2019-11-12 | XMS | Encounter Summary ---
Demographics + + + | Address | [address] | | | [place] [address] | + + + | Home Phone [...] Providers + +------+ + | Care Senior Web Developer Name | Role | Phone [...] 2012 | | CARDIOLOGY [address] | NUCLEAR WEAPONS MECHANICAL SPECIALIST [address] | | | | | [place], | [place] [facility], [place] | | | | | [place] [address] | [address] | | | | | [phone] | | | +--------+ + + + [...] | 2018 | Monitor | | [address] | Interrogation | | | | | [place], | (Primary Dx); | | | | | [place] [address] | Presence of | | | | | [phone] | permanent cardiac | | | | [...] W | | | | | | [place], | | | | | | [place] [address] | | | | | | [phone] | | | | | | | | +--------+ + + + + documented as of this encounter Visit Diagnoses Not on filedocumented in this encounter"
--- OUTSIDE RECORDS SUMMARY | ~2019-11-12 | XMS | Encounter Summary ---
Demographics + + + | Address | [address] | | | [place] [address] | + + + | Home Phone [...] Providers + +------+ + | Care Credit Control Officer Name | Role | Phone | + +------+ + PCP | Unavailable | + +------+ + Encounter Details +--------+ + + + + | Date | Type | Department | Care Team | Description | +--------+ + + + + | 12/16/ | Hospital | [facility] | | | | 2010 | Encounter | MED CTR LABORATORY | | | | | | [address] | | | | | | [place] | | | | | | [address] | | | | | | [phone] | | | +--------+ + + + [...] Dx); | | | | | [place] [address] | Presence of | | | | | [phone] | permanent cardiac | | | | [...] | | | | | | [place], | | | | | | [place] [address] | | | | | | [phone] | | | | | | | | +--------+ + + + + documented as of this encounter Visit Diagnoses Not on filedocumented in this encounter"
--- OUTSIDE RECORDS SUMMARY | ~2019-11-12 | XMS | Encounter Summary ---
Demographics + + + | Address | [address] [place] [address] | | | [place] [address] | + + + | Home Phone [...] [place] | | | | | [address] | | + + + + + Care Team Providers + +------+ + | Care Lead Auditor Name | Role | Phone | [...] Yao | | | | | at [facility] | [facility] | | | | | [address] | [place] [address] | | | | | Loop Mailcode: | | | | | | [id number] Yao [address] | | | | | | Pending [facility] | | | | | | [place], [place] | | | | | | [address] | | | | | | [phone] | | | +--------+ + + + [...] view image for the detailed interpretation from [employer] results. | CARDIOLOGY | + + + + + + + + | Performing | Address | City/State/Zipcode | Phone Number | | Organization | | | | + + + + + | [facility] | [address] | [place], [place] | | | CARDIOLOGY | [address] | [address] | | + + + + + documented in this encounter Visit Diagnoses Not on filedocumented in this encounter"
--- OUTSIDE RECORDS SUMMARY | ~2019-11-12 | XMS | Encounter Summary ---
Demographics + + + | Address | [address] | | | [place] [address] | + + + | Home Phone [...] Team Providers + +------+ + | Care Grout Worker Name | Role | Phone | [...] [address] | | | | | [place], | [place], | | | | | [place] [address] | [place] [address] | | | | | [phone] | [phone] | | | | | | | [...] Dx); | | | | | [place] [address] | Presence of | | | | | [phone] | permanent cardiac | | | | [...] | | | | | | [place] [address] | | | | | | [phone] | | | | | | | | +--------+ + + + + documented as of this encounter Visit Diagnoses Not on filedocumented in this encounter"
--- OUTSIDE RECORDS SUMMARY | ~2019-11-12 | XMS | Encounter Summary ---
Demographics + + + | Address | [address] | | | [place] [address] | + + + | Home Phone [...] Providers + +------+ + | Care Manager Telecom Name | Role | Phone | + [...] + + | 06/25/ | Office | [facility] | [place], | SINUS BRADYCARDIA | | 2013 | Visit | CARDIOLOGY [address] | [place] [address] | (Primary Dx); | | | | [place], | [place], | Symptomatic PVCs; | | | | [place] [address] | [place] [address] | Coronary artery | | | | [phone] | [phone] | disease; | | | | | [...] documented in this encounter Progress Notes James AjneenPARISA villarreal - 06/25/2014 12:38 PM PDTFormatting of [...] time, he was admitted over observation at [facility] for a chest pain. Aortogram revealed [...] needed for Chest pain. 25 tablet 12 [place]-3 Fatty Acids (SALMON OIL-1000 PO) CAPS, one [...] 16.1 01/25/2014 I reviewed records from [facility] [...] attenuation cannot completely be ruled out. [facility] 12/25/13, shows non critical [...] He is in class I-II of [place] [employer] funct ional class. There are [...] to go back in 3 days to [place] for an attempt of ablation under [...] He is in class I-II of [place] 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 There are no [...] visit or sooner if any concerns I, PARIAS Russell, saw this patient under the direct supervision of Daljit Singletary MD Portions of this report were transcribed using voice recognition software. Every effort wa s made to ensure accuracy; however, inadvertent computerized volunteer patient representative errors may be pre sent. Electronically signed by: PARISA Russell 06/25/2014 12:38 documented in this encounter Plan of Treatment +--------+ + + + + | Date | Type | Specialty | Care Team | Description | +--------+ + + + + | 12/30/ | Implant | Cardiology | Daljit Singletary, | Remote Device | | 2018 | Monitor | | [place] [address] [place] | Interrogation | | | | | [place], | (Primary Dx); | | | | | [place] [address] | Presence of | | | | | [phone] | permanent cardiac | | | | [...] W | | | | | | [place], | | | | | | [place] [address] | | | | | | [phone] | | | | | | | [...] robinson or graft | + + | Hypertension Unspecified essential hypertension | + + | Syncope Syncope and collapse | + + | Hyperlipidemia Other and unspecified hyperlipidemia | + + documented in this encounter
--- OUTSIDE RECORDS SUMMARY | ~2019-11-12 | XMS | Encounter Summary ---
Demographics + + + | Address | [address] | | | [place] [address] | + + + | Home Phone [...] Providers + +------+ + | Care Rn Plastic Surgery Name | Role | Phone | + +------+ + | Kirk French MD | PCP | | + +------+ + Encounter Details +--------+ + + + + | Date | Type | Department | Care Team | Description | +--------+ + + + + | 12/24/ | Orders Only | [facility] | Conversion | | | 2018 | | [facility] | Transaction, | | | | | PRIMARY CARE [address] | Provider Unknown | | | | | [address] | [phone] | | | | | [place] | | | | | | [address] | | | | | | [phone] | | | +--------+ + + + [...] Dx); | | | | | [place] [id number] | Presence of | | | | | [phone] | permanent cardiac | | | | [...] | | | | | [place], | | | | | | [place] [address] | | | | | | [phone] | | | | | | | [...] LAB | | [facility] | | + + [...]
--- OUTSIDE RECORDS SUMMARY | ~2019-11-12 | XMS | Encounter Summary ---
Demographics + + + | Address | [address] | | | [place] [address] | + + + | Home Phone [...] Team Providers + +------+ + | Care Monomer Recovery Operator Name | Role | Phone [...] [place] | | | | | | [address] | | | | | | [phone] | | | +--------+ + + + [...] | 2018 | Monitor | | [address] | Interrogation | | | | | [place], | (Primary Dx); | | | | | [place] [address] | Presence of | | | | | [phone] | permanent cardiac | | | | [...] | | | | | | [place] [address] | | | | | | [phone] | | | | | | | | +--------+ + + + + documented as of this encounter Visit Diagnoses Not on filedocumented in this encounter"
--- OUTSIDE RECORDS SUMMARY | ~2019-11-12 | XMS | Encounter Summary ---
Demographics + + + | Address | [address] [place] [address] | | | [place] [address] | + + + | Home Phone [...] [place] | | | | | [address] | | + + + + + Care Team Providers + +------+ + | Care Sheriff'S Detective Name | Role | Phone | [...]
--- OUTSIDE RECORDS SUMMARY | ~2019-11-12 | XMS | Encounter Summary ---
Demographics + + + | Address | [address] | | | [place] [address] | + + + | Home Phone [...] Providers + +------+ + | Care Cook Room Supervisor Name | Role | Phone [...] [place] | | | | | | [address] | | | | | | [phone] | | | +--------+ + + + [...] Dx); | | | | | [place] [address] | Presence of | | | | | [phone] | permanent cardiac | | | | [...] | | | | | | [place], | | | | | | [place] [address] | | | | | | [phone] | | | | | | | | +--------+ + + + + documented as of this encounter Visit Diagnoses Not on filedocumented in this encounter"
--- OUTSIDE RECORDS SUMMARY | ~2019-11-12 | XMS | Encounter Summary ---
Demographics + + + | Address | [address] | | | [place] [address] | + + + | Home Phone [...] Providers + +------+ + | Care Filler Block Inserter Remover Name | Role | Phone | + [...] | MED CTR XRAY [address] | DELTA SYSTEM FREIGHT CAR CLEANER [address] | disc disease), | | | | [place] | [address] | lumbar; Chronic | | | | [place] [address] | [place] [address] | left-sided low back | | | | [phone] | [phone] | pain with left-sided | | | [...] + + + +---------+ + + | Accokeek-3 Fatty | CAPS, one capsule by | [...] | | | | | [place], | (Primary Dx); | | | | | [place] [address] | Presence of | | | | | [phone] | permanent cardiac | | | | [...] W | | | | | | [place], | | | | | | [place] [address] | | | | | | [phone] | | | | | | | [...]
--- OUTSIDE RECORDS SUMMARY | ~2019-11-12 | XMS | Encounter Summary ---
Demographics + + + | Address | [address] | | | [place] [address] | + + + | Home Phone [...] Team Providers + +------+ + | Care Profile Grinder Technician Name | Role | Phone | + +------+ + PCP | Unavailable | + +------+ + Encounter Details +--------+ + + + + | Date | Type | Department | Care Team | Description | +--------+ + + + + | 09/12/ | Hospital | [facility] | | | | 1993 | Encounter | MED CTR EMERGENCY | | | | | | CENTER [address] | | | | | | [place] | | | | | | [address] | | | | | | [phone] | | | +--------+ + + + [...] Dx); | | | | | [place] [address] | Presence of | | | | | [phone] | permanent cardiac | | | | [...] | | | | | | [place], | | | | | | [place] [address] | | | | | | [phone] | | | | | | | | +--------+ + + + + documented as of this encounter Visit Diagnoses Not on filedocumented in this encounter"
--- OUTSIDE RECORDS SUMMARY | ~2019-11-12 | XMS | Encounter Summary ---
Demographics + + + | Address | [address] | | | [place] [address] | + + + | Home Phone [...] + | 04/24/ | Office | [facility] | [place], | Symptomatic PVCs | | 2012 | Visit | CARDIOLOGY [address] | [address] | (Primary Dx); CAD; | | | | [place], | [place], | Hyperlipidemia; | | | | [place] [address] | [place] [address] | PACEMAKER, PERMANENT | | | | [phone] | [phone] | - MEDTRONIC | | | | [...] tablet by mouth Daily. 30 tablet 6 [place]-3 Fatty Acids (SALMON OIL-1000 PO) CAPS, one [...] Reviewed records from PCP and notes from [facility]. Assessment: 1. Symptomatic PVCs status post [...] to go back in 3 days to [place] for an attempt of ablation under [...] He is upgraded to class I of [place] Heart Ass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 There are no [...] made to ensure accuracy; however, inadvertent computerized electricity trading analyst errors may be pre sent. documented in this encounter Plan of Treatment +--------+ + + + + | Date | Type | Specialty | Care Team | Description | +--------+ + + + + | 11/20/ | Implant | Cardiology | Daljit Singletary, | Remote Device | | 2018 | Monitor | | MD [facility] | Interrogation | | | | | [place], | (Primary Dx); | | | | | [place] [address] | Presence of | | | | | [phone] | permanent cardiac | | | | [...] | | | | | | [place], | | | | | | [place] [address] | | | | | | [phone] | | | | | | | | +--------+ + + + + documented as of this encounter Visit Diagnoses + + | Diagnosis | + + | Symptomatic PVCs - Primary Other premature beats | + + | CAD Coronary atherosclerosis of unspecified type of vessel, [place] or graft | + + | Hyperlipidemia Other and unspecified hyperlipidemia | + + | PACEMAKER, PERMANENT - MEDTRONIC 06/14/09GRANT Cardiac pacemaker in situ | + + documented in this encounter
--- OUTSIDE RECORDS SUMMARY | ~2019-11-12 | XMS | Encounter Summary ---
Demographics + + + | Address | [address] [place] [address] | | | [place] [address] | + + + | Home Phone [...] [place] | | | | | [address] | | + + + + + Care Team Providers + +------+ + | Care Direct Marketing Executive Name | Role | Phone [...] | | | [address] | [place], [place] | | | | | Mailcode: [place] | [address] | | | | | for Health and | [phone] | | | | | [facility] [address] | | | | | | [place], [place] | | | | | | [address] | | | | | | [phone] | | | +--------+ + + + [...]
--- OUTSIDE RECORDS SUMMARY | ~2019-11-12 | XMS | Encounter Summary ---
Demographics + + + | Address | [address] | | | [place] [address] | + + + | Home Phone [...] Providers + +------+ + | Care Card Grinder Helper Name | Role | Phone | [...] + + | 06/25/ | Office | [facility] | [place], | SINUS BRADYCARDIA | | 2013 | Visit | CARDIOLOGY [address] | PARISA [address] | (Primary Dx); | | | | [place], | [place], | Symptomatic PVCs; | | | | [place] [address] | [place] [address] | Coronary artery | | | | [phone] | [phone] | disease; | | | | | [...] time, he was admitted over observation at [facility] for a chest pain. Aortogram revealed [...] needed for Chest pain. 25 tablet 12 [place]-3 Fatty Acids (SALMON OIL-1000 PO) CAPS, one [...] HGBEX 16.1 01/25/2014 I reviewed records from [facility] for emergency department visit o [...] yard. He is in class I-II of [place] Heart Association funct ional class. [...] to go back in 3 days to [place] for an attempt of ablation under general [...] I-II of [place] Heart Ass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 There are no [...] made to ensure accuracy; however, inadvertent computerized high energy forming equipment operator errors may be pre sent. Electronically signed by: PARISA Russell 06/25/2014 12:38 documented in this encounter Plan of Treatment +--------+ + + + + | Date | Type | Specialty | Care Team | Description | +--------+ + + + + | 12/30/ | Implant | Cardiology | Daljit Singletary, | Remote Device | | 2018 | Monitor | | [place] [address] [place] | Interrogation | | | | | [place], | (Primary Dx); | | | | | [place] [address] | Presence of | | | | | [phone] | permanent cardiac | | | | [...] W | | | | | | [place], | | | | | | [place] [address] | | | | | | [phone] | | | | | | | | +--------+ + + + + documented as of this encounter Visit Diagnoses + + | Diagnosis | + + | SINUS BRADYCARDIA - Primary Sinoatrial node dysfunction | + + | Symptomatic PVCs Other premature beats | + + | Coronary artery disease Coronary atherosclerosis of unspecified type of vessel, | | [place]ct[place] or graft | + + | Hypertension Unspecified essential hypertension | + + | Syncope Syncope and collapse | + + | Hyperlipidemia Other and unspecified hyperlipidemia | + + documented in this encounter
--- OUTSIDE RECORDS SUMMARY | ~2019-11-12 | XMS | Encounter Summary ---
Demographics + + + | Address | [address] | | | [place] [address] | + + + | Home Phone [...] Providers + +------+ + | Care Bindery Leadperson Name | Role | Phone | + [...] + | 06/24/ | Telephone | [facility] | Daljit Singletary, | Lab Order | | 2017 | | CARDIOLOGY [address] | MD [address] [place] | | | | | [place], | [place], | | | | | [place] [address] | [place] [address] | | | | | [phone] | [phone] | | | | | | | [...] Dx); | | | | | [place] [address] | Presence of | | | | | [phone] | permanent cardiac | | | | [...] | | | | | | [place] [address] | | | | | | [phone] | | | | | | | [...] 06/24/2018, Expires: | | | | | hoh coronary | 06/24/2019 | | | | | artery of hoh | | | | | | heart [...]
--- OUTSIDE RECORDS SUMMARY | ~2019-11-12 | XMS | Encounter Summary ---
Demographics + + + | Address | [address] | | | [place] [address] | + + + | Home Phone [...] Providers + +------+ + | Care Art Coordinator Name | Role | Phone | [...] + + | 06/18/ | Emergency | [facility] | Dom Graham, | Cervical pain (neck) | | 2013 | | MED CTR EMERGENCY | MD [address] | (Primary Dx); | | | | CENTER [address] | [place] | Paresthesia and pain | | | | [place], [place] | [address] | of both upper | | | | [address] | | extremities | | | | [phone] | | | +--------+ + + + [...] + + + +---------+ + + | [place]-3 Fatty | CAPS, one capsule by | [...] 2019 | Monitor | | [place] [address] [facility] | Interrogation | | | | | [place], | (Primary Dx); | | | | | [place] [address] | Presence of | | | | | [phone] | permanent cardiac | | | | [...] W | | | | | | [place], | | | | | | [place] [address] | | | | | | [phone] | | | | | | | [...] + | MISCELLANEOUS LAB | | | [phone] | + +---------+ + + | MISCELANIOUS LAB | | | [phone] | + +---------+ + + documented in this encounter Visit Diagnoses + + | Diagnosis | + + | Cervical pain (neck) - Primary Cervicalgia | + + | Paresthesia and pain of both upper extremities Disturbance of skin sensation | + + documented in this encounter
--- OUTSIDE RECORDS SUMMARY | ~2019-11-12 | XMS | Encounter Summary ---
Demographics + + + | Address | [address] | | | [place] [address] | + + + | Home Phone [...] Providers + +------+ + | Care Bar Tender Name | Role | Phone | [...] | 07/30/ | Telephone | [facility] | Michael Amanda, | Results | | 2013 | | [facility] [place] | DO [address] | | | | | [address] | [place] | | | | | [place] | [address] | | | | | [address] | | | | | | [phone] | | | +--------+ + + + [...] 2018 | Monitor | | [address] [place] | Interrogation | | | | | [place], | (Primary Dx); | | | | | [place] [address] | Presence of | | | | | [phone] | permanent cardiac | | | | [...] | | | | | | [place] [address] | | | | | | [phone] | | | | | | | | +--------+ + + + + documented as of this encounter Visit Diagnoses Not on filedocumented in this encounter"
--- OUTSIDE RECORDS SUMMARY | ~2019-11-12 | XMS | Encounter Summary ---
Demographics + + + | Address | [address] | | | [place] [address] | + + + | Home Phone [...] | [place] [facility] | | [...] Providers + +------+ + | Care Meter Tester Name | Role | Phone | [...] 2016 | | CARDIOLOGY [address] | TESTER SOUND [address] | | | | | [place], | [place], [place] | | | | | [place] [address] | [address] | | | | | [phone] | | | +--------+--------+ + + + [...] Dx); | | | | | [place] [address] | Presence of | | | | | [phone] | permanent cardiac | | | | [...] | | | | | | [place] [address] | | | | | | [phone] | | | | | | | | +--------+ + + + + documented as of this encounter Visit Diagnoses Not on filedocumented in this encounter"
--- OUTSIDE RECORDS SUMMARY | ~2019-11-12 | XMS | Encounter Summary ---
Demographics + + + | Address | [address] | | | [place] [address] | + + + | Home Phone [...] Providers + +------+ + | Care Fruit Buying Grader Name | Role | Phone | + +------+ + PCP | Unavailable | + +------+ + Encounter Details +--------+ + + + + | Date | Type | Department | Care Team | Description | +--------+ + + + + | 11/05/ | [facility] | [facility] | Naresh Mckeon | | | 2009 | Encounter | MED CTR SLEEP | MD Chaya [address] | | | | | CENTER [address] | [place] | | | | | [place] | [place] [address] | | | | | [address] | [phone] | | | | | [phone] | | | +--------+ + + + [...] Interrogation | | | | | [place], | (Primary Dx); | | | | | [place] [address] | Presence of | | | | | [phone] | permanent cardiac | | | | [...] | | | | | | [place], | | | | | | [place] [address] | | | | | | [phone] | | | | | | | | +--------+ + + + + documented as of this encounter Visit Diagnoses Not on filedocumented in this encounter"
--- OUTSIDE RECORDS SUMMARY | ~2019-11-12 | XMS | Encounter Summary ---
Demographics + + + | Address | [address] | | | [place] [address] | + + + | Home Phone [...] Team Providers + +------+ + | Care Pega Developer Name | Role | Phone | [...] W | MD [address] | Dx); SINUS | | | | [place], | [place], | BR[place]ARDIA | | | | [place] [address] | [place] [address] | | | | | [phone] | [phone] | | | | | | | [...] Dx); | | | | | [place] [address] | Presence of | | | | | [phone] | permanent cardiac | | | | [...] | | | | | | [place], | | | | | | [place] [address] | | | | | | [phone] | | | | | | | | +--------+ + + + + documented as of this encounter Visit Diagnoses + + | Diagnosis | + + | Chest pain - Primary Chest pain, unspecified | + + | SINUS BRADYCARDIA Sinoatrial node dysfunction | + + documented in this encounter
--- OUTSIDE RECORDS SUMMARY | ~2019-11-12 | XMS | Encounter Summary ---
Demographics + + + | Address | [address] | | | [place] [address] | + + + | Home Phone [...] Team Providers + +------+ + | Care Literature Professor Name | Role | Phone | [...] Eva [place] | | | | | [place], [place] | [address] | | | | | [address] | [place] [address] | | | | | [phone] | [phone] | | | | | | | [...] | 2018 | Monitor | | [address] | Interrogation | | | | | [place], | (Primary Dx); | | | | | [place] [address] | Presence of | | | | | [phone] | permanent cardiac | | | | [...] W | | | | | | [place], | | | | | | [place] [address] | | | | | | [phone] | | | | | | | [...]
--- OUTSIDE RECORDS SUMMARY | ~2019-11-12 | XMS | Encounter Summary ---
Demographics + + + | Address | [address] | | | [place] [address] | + + + | Home Phone [...] Team Providers + +------+ + | Care Drycleaner Name | Role | Phone | + [...] + + | 03/07/ | Office | [facility] | [place], | SINUS BRADYCARDIA | | 2013 | Visit | CARDIOLOGY [address] | [address]ISA [address] | (Primary Dx); | | | | [place], | [place], | Syncope; Symptomatic | | | | [place] [address] | [place] [address] | PVCs; Pacemaker - | | | | [phone] | [phone] | Medtronic - [id number] | | | [...] Sanchez Date: March 07, 2014 : 1960 Solar Lab Technician: Kailey Pruitt RN Device Loss Prevention Analyst:Medtronic Sense (mV) Impedance (?) Capture (V) Capture (ms) A Lead >5.60 402 1.500 0.09 RV Lead >31.36 522 2.00 0.09 LV Lead Battery Impedance (?): 528 Battery Voltage (V): 2.79 NE Interval (ms): 147 AR Interval (ms): 217 VA Conduction: Mode Switch Events: 0 % of time: 0 -COO: <0.1% AP-COO: 0.1% -VS: 23.8% AP-VS: 76.1% COO: Magnetic Rate: 85 LINDA: 65 LEAH: Current [...] Pruitt RN 03/07/2014 12:00 Janeen Mccollum AR TUMBLE TAILSTOCK TURRET LATHE OPERATOR - 03/07/2014 11:07 AM PDT PATIENT [...] headaches. He paulino d been seen at [facility] a couple times with chest pain [...] needed for Chest pain. 25 tablet 12 [place]-3 Fatty Acids (SALMON OIL-1000 PO) CAPS, one [...] Sanchez Date: March 07, 2014 : 1960 Solar Lab Technician: Kailey Pruitt RN Device Loss Prevention Analyst:Aviary Sense (mV) Impedance (?) Capture (V) Capture (ms) A Lead >5.60 402 1.500 0.09 RV Lead >31.36 522 2.00 0.09 LV Lead Battery Impedance (?): 528 Battery Voltage (V): 2.79 NE Interval (ms): 147 AR Interval (ms): 217 VA Conduction: Mode Switch Events: 0 % of time: 0 -COO: <0.1% AP-COO: 0.1% -VS: 23.8% AP-VS: 76.1% COO: Magnetic Rate: 85 LINDA: 65 LEAH: Current [...] attenuation cannot completely be ruled out. [facility] 12/25/13, shows noncritical coronary artery [...] pain. He is in class II of [place] [employer] functional class . There are [...] to go back in 3 days to [place] for an attempt of ablation under [...] palpitations.. He is in class II of [place] 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 There are no [...] bring in his blood pressure logs from [facility] 5. Lightheadedness and dizziness/ [...] made to ensure accuracy; however, inadvertent computerized smoke control supervisor errors may be pre sent. Electronically [...] Dx); | | | | | [place] [address] | Presence of | | | | | [phone] | permanent cardiac | | | | [...] | | | | | | [place], | | | | | | [place] [address] | | | | | | [phone] | | | | | | | [...] 07, 2014 : | | | 1960 Solar Lab Technician: Kailey Pruitt RN Device | | | Loss Prevention Analyst:Aviary Sense (mV) Impedance (?) Capture (V) | | | Capture (ms) A Lead >5.60 402 1.500 0.09 RV Lead >31.36 522 2.00 | | | 0.09 LV Lead Battery Impedance (?): 528 Battery Voltage (V): | | | 2.79 NE Interval (ms): 147 AR Interval (ms): 217 VA Conduction: | | | Mode Switch Events: 0 % of time: 0 -COO: <0.1% AP-COO: 0.1% -VS: | | | 23.8% AP-VS: 76.1% COO: Magnetic Rate: 85 LINDA: 65 LEAH: Current [...] | | Date: March 07, 2014DOB: 1960 Solar Lab Technician: Kailey Pruitt RN Device | | Loss Prevention Analyst:Aviary Sense (mV) Impedance (?) Capture (V) Capture (ms) A Lead >5.60 | | 402 1.500 0.09 RV Lead >31.36 522 2.00 0.09 LV Lead Battery Impedance (?): 528 | | Battery Voltage (V): 2.79 NE Interval (ms): 147 AR Interval (ms): 217 VA Conduction: | | Mode Switch Events: 0 % of time: 0 -COO: <0.1% AP-COO: 0.1% -VS: 23.8% AP-VS: 76.1% | | COO: Magnetic Rate: 85 LINDA: 65 LEAH: Current [...]
--- OUTSIDE RECORDS SUMMARY | ~2019-11-12 | XMS | Encounter Summary ---
Demographics + + + | Address | [address] | | | [place] [address] | + + + | Home Phone [...] Providers + +------+ + | Care Journeyman Sheet Metal Worker Name | Role | Phone | + +------+ + | Kirk French MD | PCP | | + +------+ + Encounter Details +--------+ + + + + | Date | Type | Department | Care Team | Description | +--------+ + + + + | 12/26/ | Episode | [facility] | Kaylynn Copeland | | | 2019 | Changes | GASTROENTEROLOGY | MM[place]E | | | | | [address] | | | | | | [address] [place] | | | | | | [address] | | | | | | [phone] | | | +--------+ + + + [...] | 2018 | Monitor | | [address] [place] | Interrogation | | | | | [place], | (Primary Dx); | | | | | [place] [address] | Presence of | | | | | [phone] | permanent cardiac | | | | [...] | | | | | | [place], | | | | | | [place] [address] | | | | | | [phone] | | | | | | | | +--------+ + + + + documented as of this encounter Visit Diagnoses Not on filedocumented in this encounter"
--- OUTSIDE RECORDS SUMMARY | ~2019-11-12 | XMS | Encounter Summary ---
Demographics + + + | Address | [address] | | | [place] [address] | + + + | Home Phone [...] + + | 06/26/ | Hospital | [facility] | Michael Amanda, | Diplopia | | 2012 | Encounter | MED CTR LABORATORY | DO [address] | | | | | [address] [place] | [place], [place] | | | | | [place], [place] | [address] | | | | | [address] | | | | | | [phone] | | | +--------+ + + + [...] + + + +---------+ + + | Gamaliel-3 Fatty | CAPS, one capsule by | [...] Dx); | | | | | [place] [address] | Presence of | | | | | [phone] | permanent cardiac | | | | [...] | | | | | | [place] [address] | | | | | | [phone] | | | | | | | [...] + | [facility] | [address] | [place], [place] | [phone] | | [facility] | | [address] | | | - LABORATORY | | | | + + + + + | [facility] | [address] | [place], [place] | | | [facility] | | [address] | | | - LABORATORY | | [...] performed on the Javid | uIU/mL | [facility] | | | | [facility] | [...] [address] | [place] | [phone] | | [facility] | | [address] | | | - LABORATORY | | | | + + + + + | [facility] | [address] | [place] | | | [facility] | | [address] | | | - LABORATORY | | [...] + | [facility] | [address] | [place] | [phone] | | [facility] | | [address] | | | - LABORATORY | | | | + + + + + | [facility] | [address] | [place], [place] | | | [facility] | | [address] | | | - LABORATORY | | [...] + | [facility] | [address] | [place] | [phone] | | [facility] | | [address] | | | - LABORATORY | | | | + + + + + | [facility] | [address] | [place], [place] | | | [facility] | | [address] | | | - LABORATORY | | [...] + | [facility] | [address] | [place] | [phone] | | [facility] | | [address] | | | - LABORATORY | | | | + + + + + | [facility] | [address] | [place] | | | [facility] | | [address] | | | [...] performed on the Javid | uIU/mL | [facility] | | | | [place] [facility] | | MEDICAL | | | [...] + | [facility] | [address] | [place] | [phone] | | [facility] | | [address] | | | - LABORATORY | | | | + + + + + | [facility] | [address] | [place] | | | [facility] | | [address] | | | - LABORATORY | | | | + + + + + documented in this encounter Visit Diagnoses + + | Diagnosis | + + | Diplopia | + + documented in this encounter"
--- OUTSIDE RECORDS SUMMARY | ~2019-11-12 | XMS | Encounter Summary ---
Demographics + + + | Address | [address] | | | [place] [address] | + + + | Home Phone [...] Team Providers + +------+ + | Care Corncob Pipe Supervisor Name | Role | Phone | [...] Refill | | 2014 | | [facility] [place] | DO [address] | | | | | [address] | [place] | | | | | [place], [place] | [address] | | | | | [address] | | | | | | [phone] | | | +--------+--------+ + + + [...] Dx); | | | | | [place] [address] | Presence of | | | | | [phone] | permanent cardiac | | | | [...] | | | | | | [place], | | | | | | [place] [address] | | | | | | [phone] | | | | | | | | +--------+ + + + + documented as of this encounter Visit Diagnoses Not on filedocumented in this encounter"
--- OUTSIDE RECORDS SUMMARY | ~2019-11-12 | XMS | Encounter Summary ---
Demographics + + + | Address | [address] | | | [place] [address] | + + + | Home Phone [...] | (Primary Dx) | | | | [place], [place] | [place], [place] | | | | | [address] | [address] | | | | | [phone] | | | +--------+---------+ + + + [...] a 59 y.o. male patient of Kirk Frnech MD here today fo r a follow [...] Peptic ulcer disease Premature ventricular contraction [facility] 06/26/2013 LAST PSA:12/16/2010 RESULT:0.14 LAST [...] CV LHC; Surgeon: Daljit Singletary MD; Location: [facility] CV LAB CARDIAC CATHERIZATION N/A 01/25/2019 Procedure: CV Cor Angio; Surgeon: Daljit Singletary MD; Location: [facility] CV LAB COLONOSCOPY N/A 12/24/2017 Procedure: COLONOSCOPY; Surgeon: Emmanuel Daniel MD; Location: [facility] MEDICAL PROCEDURE UNIT COLONOSCOPY N/A 01/05/2019 Procedure: COLONOSCOPY; Surgeon: Emmanuel Daniel MD; Location: [facility] MEDICAL PROCEDURE UNIT EGD 12/24/2017 [...] Procedure: EGD; Surgeon: Emmanuel Daniel MD; Location: [facility] MEDICAL PROCEDURE UNIT UPPER GASTROINTESTINAL ENDOSCOPY N/A 01/05/2019 Procedure: EGD; Surgeon: Emmanuel Daniel MD; Location: [facility] MEDICAL PROCEDURE UNIT URETEROSCOPY Left 04/13/2019 Procedure: Cystoscopy, Left ureteroscopy with laser lithotripsy, Left ureteral stent place ment; Surgeon: Matthew Uriarte MD; Location: [facility] MAIN OR VASECTOMY Family History: Family [...] 911, Disp: 100 ta blet, Rfl: 3 [place]-3 Fatty Acids (SALMON OIL-1000 PO), CAPS, one [...] pH, Urine 8.0 5.0 - 8.0 Specific [place] 1.008 1.001 - 1.030 Protein, Urine Negative [...] not thoroughly proofread this note, and director oracle errors are very likely to occur. CC: Kirk French MD documented in this encounter Plan of Treatment +--------+ + + + + | Date | Type | Specialty | Care Team | Description | +--------+ + + + + | 11/20/ | Implant | Cardiology | Daljit Singletary, | Remote Device | | 2018 | Monitor | | [address] | Interrogation | | | | | [place], | (Primary Dx); | | | | | [place] [address] | Presence of | | | | | [phone] | permanent cardiac | | | | [...] W | | | | | | [place], | | | | | | [place] [address] | | | | | | [phone] | | | | | | | [...]
--- OUTSIDE RECORDS SUMMARY | ~2019-11-12 | XMS | Encounter Summary ---
Demographics + + + | Address | [address] | | | [place] [address] | + + + | Home Phone [...] + +------+ + | Care Community Living Instructor Name | Role | Phone | [...] | 01/24/ | Telephone | [facility] | Daljit Singletary, | Other | | 2019 | | CARDIOLOGY [address] | MD [address] | | | | | [place], | [place], | | | | | [place] [address] | [place] [address] | | | | | [phone] | | | | | | | [...] Interrogation | | | | | [place], | (Primary Dx); | | | | | [place] [address] | Presence of | | | | | [phone] | permanent cardiac | | | | [...] W | | | | | | [place], | | | | | | [place] [address] | | | | | | [phone] | | | | | | | | +--------+ + + + + documented as of this encounter Visit Diagnoses Not on filedocumented in this encounter"
--- OUTSIDE RECORDS SUMMARY | ~2019-11-12 | XMS | Encounter Summary ---
Demographics + + + | Address | [address] | | | [place] [address] | + + + | Home Phone [...] Team Providers + +------+ + | Care Audiologist Name | Role | Phone | + +------+ + PCP | Unavailable | + +------+ + Encounter Details +--------+ + + + + | Date | Type | Department | Care Team | Description | +--------+ + + + + | 06/25/ | [facility] | [facility] | Daljit Singletary, | | | 2008 | Encounter | MED CTR XRAY [address] | [address] | | | | | [place] | [place], | | | | | [place] [address] | [place] [address] | | | | | [phone] | [phone] | | | | | | | [...] Dx); | | | | | [place] [address] | Presence of | | | | | [phone] | permanent cardiac | | | | [...] | | | | | | [place] [address] | | | | | | [phone] | | | | | | | | +--------+ + + + + documented as of this encounter Visit Diagnoses Not on filedocumented in this encounter"
--- OUTSIDE RECORDS SUMMARY | ~2019-11-12 | XMS | Encounter Summary ---
Demographics + + + | Address | [address] | | | [place] [address] | + + + | Home Phone [...] Providers + +------+ + | Care Finishing Wire Sawyer Name | Role | Phone | + +------+ + PCP | Unavailable | + +------+ + Encounter Details +--------+ + + + + | Date | Type | Department | Care Team | Description | +--------+ + + + + | 08/02/ | Hospital | [facility] | | | | 2001 | Encounter | MED CTR EMERGENCY | | | | | | [place] [address] | | | | | | [place] | | | | | | [address] | | | | | | [phone] | | | +--------+ + + + [...] Dx); | | | | | [place] [address] | Presence of | | | | | [phone] | permanent cardiac | | | | [...] W | | | | | | [place], | | | | | | [place] [address] | | | | | | [phone] | | | | | | | | +--------+ + + + + documented as of this encounter Visit Diagnoses Not on filedocumented in this encounter"
--- OUTSIDE RECORDS SUMMARY | ~2019-11-12 | XMS | Encounter Summary ---
Demographics + + + | Address | [address] | | | [place] [address] | + + + | Home Phone [...] + +------+ + | Care Agricultural Equipment Design Engineer Name | Role | Phone [...] [address] | | | | | [place], | [place], | | | | | [place] [address] | [place] [address] | | | | | [phone] | [phone] | | | | | | | [...] | 2018 | Monitor | | [address] [place] | Interrogation | | | | | [place], | (Primary Dx); | | | | | [place] [address] | Presence of | | | | | [phone] | permanent cardiac | | | | [...] | | | | | | [place] [address] | | | | | | [phone] | | | | | | | [...]
--- OUTSIDE RECORDS SUMMARY | ~2019-11-12 | XMS | Encounter Summary ---
Demographics + + + | Address | [address] | | | [place] [address] | + + + | Home Phone [...] Providers + +------+ + | Care Cable Tool Operator Name | Role | Phone [...] | | | | aortic | Janeen, HEMATOLOGY TECHNICIAN | [place], | | | | | aneurysm | [address] | [place] [address] | | | | | (HCC) | [place] | Phone: | | | | | Abdominal | [place], | [phone] | | | | | aortic | [place] | Fax: | | | | | aneurysm | [address] | [phone] | | | | | (AAA) | Phone: | | | | | | without | [phone] | | | | | | rupture | Fax: | | | | | | (HCC) | [phone] | | | | | | Procedures [...] | | unspecified | MD Martell | [address] [place] [address] | | | | | type ER | [address] | [address] | | | | | FUP | [place] | [place], | | | | | Procedures | [place], [place] | [place] [address] | | | | | FUP - SUW & | [address] | Phone: | | | | | MISHA PT, LAST | Phone: | [phone] | | | | | SEEN | [phone] | Fax: | | | | | 08-24-18 | Fax: | [phone] | | | | | | [phone] | | +--------+ + + + + + Encounter Details +--------+---------+ + + + | Date | Type | Department | Care Team | Description | +--------+---------+ + + + | 01/11/ | Office | [facility] | Silvia, | Coronary artery | | 2019 | Visit | CARDIOLOGY [address] | [place] [address] | disease involving | | | | [place], | [place], | [place] coronary | | | | [place] [address] | [place] [address] | artery of [place] | | | | [phone] | [phone] | heart without angina | | | [...] encounter Patient Instructions Patient Instructions Christine Rodriguez, Radio Program Director - 01/11/2019 12:45 PM PST 1. [...] Check-in time: 1. Check in at the [facility]. 2. Do not [...] procedure. 6. Make sure you have a haulpak driver to take you home. Your haulpak driver will also need to sign you [...] line at and ask for nursing supervisor mill t o let them know you are cancelling . Blood test: Non-fasting Date Due: same day as CTA Where to go for labs: [facility]- [address] [...] DOSE, CALL 911 100 tablet 3 [place]-3 Fatty Acids (SALMON OIL-1000 PO) CAPS, one [...] was found Confirmed by ANGELA MARADIAGA MD ([id number]) on 01/03/2019 8:10:39 PM LAB RESULTS reviewed during visit today primarily from [facility]: LIPID Lab Results Component Value [...] HPI. RESULTS- I reviewed reports from [facility]: Xr Chest Ap Portable Result [...] involving [place] coronary artery of [place] heart wi out angina pectoris: A. Normal [...] Symptoms with moderate exertion of t he [place] Heart Ass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 Heart failure stage [...] ablation for ventricular arrhythmia performed by Dr. Gmabino at [facility] on [...] go back in 3 days t o [place] for an attempt of ablation under general [...] he has any further problems Christine Clemente Radio Program Director am acting as a scribe on behalf of, and in the pres ence of PARISA Lomas. - Reji Newman 01/11/2019 13:46 IJaneen ARNP, personally performed the services described in this documentati on, as scribed in my presence and it is both accurate and complete. -PARISA Lomas 01/11/2019 Portions of this chart may have been created with [employer] voice recognition software. Occasi onal wrong-word or [...] Dx); | | | | | [place] [address] | Presence of | | | | | [phone] | permanent cardiac | | | | [...] | | | | | | [place] [address] | | | | | | [phone] | | | | | | | [...] [place] heart without | | angina pectoris - [...]
--- OUTSIDE RECORDS SUMMARY | ~2019-11-12 | XMS | Encounter Summary ---
Demographics + + + | Address | [address] | | | [place] [address] | + + + | Home Phone [...] Providers + +------+ + | Care Switchboard Inspector Name | Role | Phone | [...] + | 10/04/ | Telephone | [facility] | Daljit Singletary, | Other (Records sent) | | 2012 | | CARDIOLOGY [address] | MD [address] [place] | | | | | [place], | [place], | | | | | [place] [address] | [place] [address] | | | | | [phone] | | | | | | | [...] Interrogation | | | | | [place], | (Primary Dx); | | | | | [place] [address] | Presence of | | | | | [phone] | permanent cardiac | | | | [...] | | | | | | [place] [address] | | | | | | [phone] | | | | | | | | +--------+ + + + + documented as of this encounter Visit Diagnoses Not on filedocumented in this encounter"
--- OUTSIDE RECORDS SUMMARY | ~2019-11-12 | XMS | Encounter Summary ---
Demographics + + + | Address | [address] | | | [place] [address] | + + + | Home Phone [...] Providers + +------+ + | Care Youth Probation Officer Name | Role | Phone [...] + + | 12/29/ | Office | [facility] | [place], | Ascending thoracic | | 2017 | Visit | CARDIOLOGY [address] | PARISA [place] [address] | aortic aneurysm | | | | [place], | [place], | (HCC) (Primary Dx); | | | | [place] [address] | [place] [address] | Coronary artery | | | | [phone] | [phone] | disease involving | | | | | | [place] coronary | | | | | | artery of [place] | | | | | | [...] start Losartan 25 mg once every day, [facility] blood [facility], and follow up in 3 months. Since that time, he went to the ER in [facility] with chest pain at the end of [...] 3RD DOSE, CALL 911 100 tablet 3 [place]-3 Fatty Acids (SALMON OIL-1000 PO) CAPS, one [...] was found Confirmed by SYDNI SINGLETARY MD ([id number]) on 06/23/2016 2:08:15 PM LAB RESULTS reviewed [...] PLTEX 129* 05/12/2016 I reviewed records from [facility] for office visit on 09/01/2016 which [...] He is in class I of the [place] Heart Ass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 On physical examination there are no signs of fl uid overload. 2. Non-critical Coronary artery disease involving [place] coronary a rtery of [place] heart without angina pectoris: A. Normal exercise [...] to go back in 3 days to [place] for an attempt of ablation under general [...] is a normal stable device function. Estimated CannaBuildi ng battery longevity is 5 years.. 5. [...] this chart may have been created with [employer] voice recognition software. Occasi onal wrong-word or [...] Dx); | | | | | [place] [address] | Presence of | | | | | [phone] | permanent cardiac | | | | [...] | | | | | | [place] [address] | | | | | | [phone] | | | | | | | [...]
--- OUTSIDE RECORDS SUMMARY | ~2019-11-12 | XMS | Encounter Summary ---
Demographics + + + | Address | [address] | | | [place] [address] | + + + | Home Phone [...] Providers + +------+ + | Care Project Estimator Name | Role | Phone | [...] | | CARDIOLOGY [address] | [address] [place] | | | | | [place], | [place], | | | | | [place] [address] | [place] [address] | | | | | [phone] | [phone] | | | | | | | [...] | 2018 | Monitor | | [address] [place] | Interrogation | | | | | [place], | (Primary Dx); | | | | | [place] [address] | Presence of | | | | | [phone] | permanent cardiac | | | | [...] W | | | | | | [place], | | | | | | [place] [address] | | | | | | [phone] | | | | | | | | +--------+ + + + + documented as of this encounter Visit Diagnoses Not on filedocumented in this encounter"
--- OUTSIDE RECORDS SUMMARY | ~2019-11-12 | XMS | Encounter Summary ---
Demographics + + + | Address | [address] | | | [place] [address] | + + + | Home Phone [...] + +------+ + | Care Inside Sales Director Name | Role | Phone | [...] | type | [address] | [address] | | | | | Procedures | [place] | [place], | | | | | FUP | [place], [place] | [place] [address] | | | | | | [address] | Phone: | | | | | | Phone: | [phone] | | | | | | [phone] | Fax: | | | | | | Fax: | [phone] | | | | | | [phone] | | +--------+ + + + + [...] | | | | CENTER [address] | [address] [place] | (Primary Dx) | | | | [place], [place] | [place] [address] | | | | | [address] | [phone] | | | | | [phone] | | | +--------+ + + + [...] cannot be sent through Care Everywhere.Angina, Stable (Belarusian)documented in this encounter Medications at Time [...] + + + +---------+ + + | [place]-3 Fatty | CAPS, one capsule by | [...] Dx); | | | | | [place] [address] | Presence of | | | | | [phone] | permanent cardiac | | | | [...] | | | | | | [place] [address] | | | | | | [phone] | | | | | | | [...] | | | | ANGELA MARADIAGA MD ([id number]) | | | | | | on [...] | [address] | [place] | [phone] | | [facility] | | [address] | | | - LABORATORY | | [...] [address] | [place] | [phone] | | [facility] | | [address] | | | - [...] + | [facility] | [address] | [place] | [phone] | | [facility] | | [address] | | | - LABORATORY | | [...] | | | FILTRATION | mL/min/1.73m2 | [facility] | | | MALTESE | RATE,ESTIMATED | | MEDICAL | | | | mL/min/1.42z8Vdkv than | | CENTER - | | [...] 9.3 | 8.3 - 10.5 | [facility] | | | | | mg/dL | [facility] | | | | | | MEDICAL | | | | | | CENTER - | | | | | | LABORATORY | | + + + + + + | Albumin | 4.2 | 3.2 - 5.0 g/dL | [facility] | | | | | | [facility] | | | | | | MEDICAL [...] | | ine Ratio | | | [facility] | | | | | | MEDICAL [...] [address] | [place] | [phone] | | [facility] | | [address] | | | - LABORATORY | | [...] [address] | [place] | [phone] | | [facility] | | [address] | | | - LABORATORY | | [...] | | | | ANGELA MARADIAGA MD ([id number]) | | | | | | on [...]
--- OUTSIDE RECORDS SUMMARY | ~2019-11-12 | XMS | Encounter Summary ---
Demographics + + + | Address | [address] | | | [place] [address] | + + + | Home Phone [...] Providers + +------+ + | Care Metal Storage Worker Name | Role | Phone [...] W | reprogramming/check | | | | [place], | [address] [place] | DO NOT DELETE | | | | [place] [address] | [place] [address] | (Primary Dx); | | | | [phone] | [phone] | Pacemaker - | | | | [...] | | | | | [place] [place], | (Primary Dx); | | | | | [place] [address] | Presence of | | | | | [phone] | permanent cardiac | | | | [...] | | | | | | [place] [address] | | | | | | [phone] | | | | | | | [...]
--- OUTSIDE RECORDS SUMMARY | ~2019-11-12 | XMS | Clinical Summary ---
Demographics + + + | Address | [address] | | | [place] [address] | + + + | Home Phone | | + + + | Preferred Language | Unknown | + + + | Marital Status | | + + + | Episcopalian Affiliation | 1013 | + + + | Race | Unknown | + + + | Ethnic Group | Unknown | + + + Author + + + | Author | [facility] (Historical as of | | | 07-08-19) | + + + | Organization | [facility] (Historical as of | | | 07-08-19) [...] Providers + +------+ + | Care Local Superintendent Name | Role | Phone | [...] + | AUTO INSURANCE | AUTO | [id number] | | | | | | INSURA | | | | | | | NCE | | | | | | | GENERI | | | | | | | C | | | | | + +--------+ +------+-------+ + | AUTO INSURANCE | AUTO | [id number] | | | | | | INSURA | [id number] | | | | | | NCE | | | | | | | GENERI | | | | | | | C | | | | | + +--------+ +------+-------+ + | MEDICARE | MEDICA | [id number] | | | [address] | | | RE | | | | [place], [place] [address] | | | IP-OP | | | | | + +--------+ +------+-------+ + | [facility] | [place] | [id number] | | | | | | | [...] | Self | [birth year] | Home: | [address] | | | al/Fam | | 9 | +1- | [address] [place], [place] | | | roxanne | | | [address] | [address] | + +--------+ +--------+ + + | AMILCAR GAY | Third | Self | [birth year] | Home: | [address] | | | [place] | | 9 | +- | [place], [place] | | | [place] | | | [address] | [address] | | | ity | | | | | + +--------+ +--------+ + + | AMILCAR GAY | Third | Self | [birth year] | Home: | [address] | | | [place] | | 1960 | +- | [place], [place] | | | [place] | | | [address] | [address] | | | ity | | | | | + +--------+ +--------+ + +
--- OUTSIDE RECORDS SUMMARY | ~2019-11-12 | XMS | Encounter Summary ---
Demographics + + + | Address | [address] | | | [place] [address] | + + + | Home Phone [...] Team Providers + +------+ + | Care Intranet Support Name | Role | Phone | + +------+ + | Kirk French MD | PCP | | + +------+ + Encounter Details +--------+---------+ + + + | Date | Type | Department | Care Team | Description | +--------+---------+ + + + | 01/25/ | Surgery | [facility] | Daljit Singletary, | CV LHC | | 2019 | | MED CTR CV INTRA OP | MD [address] | | | | | [address] | [address], | | | | | [place] | [place] [address] | | | | | [address] | [phone] | | | | | [phone] | | | +--------+---------+ + + + [...] by your healthcare provider Date Last Reviewed: 09/22/201619994977-8651 [employer]. [address] [place] [address]. All righ ts reserved. This information is [...] + + + +---------+ + + | [place]-3 Fatty | CAPS, one capsule by | [...] Dx); | | | | | [place] [address] | Presence of | | | | | [phone] | permanent cardiac | | | | [...] | | | | | | [place] [address] | | | | | | [phone] | | | | | | | [...] (1960) MEDICAL RECORD NUMBER: | | | [id number] OF PROCEDURE: 01/25/2019 [place] OR TIMBER YARD WORKER: Daljit | | | MD Gemini [...] (1960) | | OF PROCEDURE: 01/25/2019PRIMARY AUTO BODY REPAIRER FIBERGLASS: Daljit Singletary MD PROCEDURES | | PERFORMED:Coronary [...] | Aggressive medical management. | | at 9:[facility] PROVID[facility]:Kirk French MDFor additional [...] or lesion | | type, unspecified whether tribal or transplanted heart | + + documented [...]
--- OUTSIDE RECORDS SUMMARY | ~2019-11-12 | XMS | Encounter Summary ---
Demographics + + + | Address | [address] | | | [place] [address] | + + + | Home Phone [...] Team Providers + +------+ + | Care Deli Department Manager Name | Role | Phone [...] Refill | | 2013 | | MEDICINE [facility] | DO [address] | | | | | [address] | [place] | | | | | [place] | [address] | | | | | [address] | | | | | | [phone] | | | +--------+--------+ + + + [...] | 2018 | Monitor | | [address] | Interrogation | | | | | [place], | (Primary Dx); | | | | | [place] [address] | Presence of | | | | | [phone] | permanent cardiac | | | | [...] | | | | | | [place] [address] | | | | | | [phone] | | | | | | | | +--------+ + + + + documented as of this encounter Visit Diagnoses Not on filedocumented in this encounter"
--- OUTSIDE RECORDS SUMMARY | ~2019-11-12 | XMS | Encounter Summary ---
Demographics + + + | Address | [address] | | | [place] [address] | + + + | Home Phone [...] Providers + +------+ + | Care Pediatric Urologist Name | Role | Phone | [...] | initial encounter; | | | | [place], [place] | | Elevated blood | | | | [address] | | pressure reading; | | | | [phone] | | Numbness and | | | [...] + + + +---------+ + + | [place]-3 Fatty | CAPS, one capsule by | [...] Dx); | | | | | [place] [address] | Presence of | | | | | [phone] | permanent cardiac | | | | [...] | | | | [place], | | | | | | [place] [address] | | | | | | [phone] | | | | | | | [...]
--- OUTSIDE RECORDS SUMMARY | ~2019-11-12 | XMS | Encounter Summary ---
Demographics + + + | Address | [address] | | | [place] [address] | + + + | Home Phone [...] 2015 | | CARDIOLOGY [address] | DIETARY TECH [address] | reprogramming/check | | | | [place], | [place], [place] | DO NOT DELETE | | | | [place] [address] | [address] | (Primary Dx); | | | | [phone] | | Pacemaker - | | | [...] Dx); | | | | | [place] [address] | Presence of | | | | | [phone] | permanent cardiac | | | | [...] W | | | | | | [place], | | | | | | [place] [address] | | | | | | [phone] | | | | | | | [...] | | 2. Coronary artery disease involving upper [place] coronary artery of | | | [place] heart without angina pectoris I25.10 414.01 ECHO [...]
--- OUTSIDE RECORDS SUMMARY | ~2019-11-12 | XMS | Encounter Summary ---
Demographics + + + | Address | [address] | | | [place] [address] | + + + | Home Phone [...] + + | 08/26/ | Hospital | [facility] | | | | 2009 | Encounter | MED CTR LABORATORY | | | | | | [address] [place] | | | | | | [place] | | | | | | [address] | | | | | | [phone] | | | +--------+ + + + [...] Dx); | | | | | [place] [address] | Presence of | | | | | [phone] | permanent cardiac | | | | [...] | | | | | | [place] [address] | | | | | | [phone] | | | | | | | | +--------+ + + + + documented as of this encounter Visit Diagnoses Not on filedocumented in this encounter"
--- OUTSIDE RECORDS SUMMARY | ~2019-11-12 | XMS | Encounter Summary ---
Demographics + + + | Address | [address] | | | [place] [address] | + + + | Home Phone [...] Providers + +------+ + | Care Printing Plate Maker Name | Role | Phone [...] | | | [place] | [place] [address] | | | | | | [address] | Phone: | | | | | | Phone: | [phone] | | | | | | [phone] | Fax: | | | | | | Fax: | [phone] | | | | | | [phone] | | +--------+ + + + + [...] | diurnal enuresis | | | | [place], [place] | [place], [place] | (Primary Dx); BPH | | | | [address] | [address] | with | | | | [phone] | | obstruction/lower | | | | [...] Haleigh rodarte states that the surgeon in [place] who performed his neck surgery is no longer practicing a nd was apparently disciplined and had his license revoked by the [facility]. He has ed marijuana for his [...] APNEA CONDS CLASSIFIED ELSEWHERE (12/15/2010); Ulcerative colitis ([facility]); Ches t pain; SINUS BRADYCARDIA; HEPATITIS B; PUD; FATTY LIVER DISEASE; SUBSTANCE ABUSE, MULTIPLE; Preventative health care (06/26/2013); Bladder troubles; Tuberculosis; Anginal pain ([facility]); St roke ([facility]); Prostate troubles; and Neurological [...] needed for Chest pain. 25 tablet 12 Drasco-3 Fatty Acids (SALMON OIL-1000 PO) CAPS, one [...] Date/Time: 04/22/2012 16:56 Transcribed Date/Time: 04/22/2012 17:32 Process Assistant: <Electronically Signed by Jama Solis MD> 04/23/12 [...] Date/Time: 04/23/2012 10:54 Transcribed Date/Time: 04/23/2012 11:06 Process Assistant: <Electronically Signed by Jama Solis MD> 04/24/12 2859 IMPRESSION: 1. Nocturnal and diurnal enuresis. I [...] still believe that the recommendations from [facility] neurosurgeon, Dr. Demarco, on 03/13/2014 would still [...] have not thoroughly proofread this note, and pipe organ mechanic apprentice erro rs may occur. CC: Kirk French [...] Dx); | | | | | [place] [address] | Presence of | | | | | [phone] | permanent cardiac | | | | [...] | | | | | [place], | | | | | | [place] [address] | | | | | | [phone] | | | | | | | [...] 1.001 - 1.030 | | | | [place], | | | | | | UA, [...]
--- OUTSIDE RECORDS SUMMARY | ~2019-11-12 | XMS | Encounter Summary ---
Demographics + + + | Address | [address] | | | [place] [address] | + + + | Home Phone [...] Providers + +------+ + | Care Hse Specialist Name | Role | Phone | [...] + + | 12/14/ | Telephone | [facility] | Emmanuel Daniel MD | Follow-up, Office | | 2019 | | GASTROENTEROLOGY | [address], [place] | Visit (wants to | | | | [address] [place] | [address] [place] | cancel his office | | | | [address] [place] | [address] | appointment today) | | | | [address] | | | | | | [phone] | | | +--------+ + + + [...] Interrogation | | | | | [place], | (Primary Dx); | | | | | [place] [address] | Presence of | | | | | [phone] | permanent cardiac | | | | [...] | | | | | | [place] [address] | | | | | | [phone] | | | | | | | | +--------+ + + + + documented as of this encounter Visit Diagnoses Not on filedocumented in this encounter"
--- OUTSIDE RECORDS SUMMARY | ~2019-11-12 | XMS | Encounter Summary ---
Demographics + + + | Address | [address] | | | [place] [address] | + + + | Home Phone [...] Team Providers + +------+ + | Care Transmissions Systems Operator Name | Role | Phone [...] [address] | | | | | [place], | [place], | | | | | [place] [address] | [place] [address] | | | | | [phone] | [phone] | | | | | | | [...] Interrogation | | | | | [place], | (Primary Dx); | | | | | [place] [address] | Presence of | | | | | [phone] | permanent cardiac | | | | [...] W | | | | | | [place], | | | | | | [place] [address] | | | | | | [phone] | | | | | | | | +--------+ + + + + documented as of this encounter Visit Diagnoses Not on filedocumented in this encounter"
--- OUTSIDE RECORDS SUMMARY | ~2019-11-12 | XMS | Encounter Summary ---
Demographics + + + | Address | [address] | | | [place] [address] | + + + | Home Phone [...] + | 06/02/ | Telephone | [facility] | Daljit Singletary, | Other (symptoms) | | 2019 | | CARDIOLOGY [address] | MD [address] | | | | | [place], | [place], | | | | | [place] [address] | [place] [address] | | | | | [phone] | [phone] | | | | | | | [...] Dx); | | | | | [place] [address] | Presence of | | | | | [phone] | permanent cardiac | | | | [...] | | | | | | [place] [address] | | | | | | [phone] | | | | | | | | +--------+ + + + + documented as of this encounter Visit Diagnoses Not on filedocumented in this encounter"
--- OUTSIDE RECORDS SUMMARY | ~2019-11-12 | XMS | Encounter Summary ---
Demographics + + + | Address | [address] | | | [place] [address] | + + + | Home Phone [...] Providers + +------+ + | Care Airport Shuttle Driver Name | Role | Phone | [...] [address] | | | | | [place], | [place], | | | | | [place] [address] | [place] [address] | | | | | [phone] | [phone] | | | | | | | [...] | Monitor | | MD [address] [place] | Interrogation | | | | | [place], | (Primary Dx); | | | | | [place] [address] | Presence of | | | | | [phone] | permanent cardiac | | | | [...] W | | | | | | [place], | | | | | | [place] [address] | | | | | | [phone] | | | | | | | [...] [facility] | | [address] | | | - LABORATORY | | [...] + | [address] | [address] | [place] | | | [facility] | | [address] | | | - LABORATORY | | [...]
--- OUTSIDE RECORDS SUMMARY | ~2019-11-12 | XMS | Encounter Summary ---
Demographics + + + | Address | [address] | | | [place] [address] | + + + | Home Phone [...] Providers + +------+ + | Care Government Guard Name | Role | Phone | [...] | | | | | [place], | [place], | | | | | [place] [address] | [place] [address] | | | | | [phone] | [phone] | | | | | | | [...] 2018 | Monitor | | [address] [place] | Interrogation | | | | | [place], | (Primary Dx); | | | | | [place] [address] | Presence of | | | | | [phone] | permanent cardiac | | | | [...] W | | | | | | [place], | | | | | | [place] [address] | | | | | | [phone] | | | | | | | | +--------+ + + + + documented as of this encounter Visit Diagnoses Not on filedocumented in this encounter"
--- OUTSIDE RECORDS SUMMARY | ~2019-11-12 | XMS | Encounter Summary ---
Demographics + + + | Address | [address] | | | [place] [address] | + + + | Home Phone [...] Providers + +------+ + | Care Agriculture Mechanic Name | Role | Phone | + +------+ + PCP | Unavailable | + +------+ + Encounter Details +--------+ + + + + | Date | Type | Department | Care Team | Description | +--------+ + + + + | 02/01/ | [facility] | [facility] | Evan Gandara MD | | | 2008 - | Encounter | MED CTR MED ONC | [address] [facility] | | | | | [address] [place] | [place] | | | 02/06/ | | [place] [address] | [address] | | | 2008 | | [phone] | | | +--------+ + + + [...] 2019 | Monitor | | [address] [place] | Interrogation | | | | | [place], | (Primary Dx); | | | | | [place] [address] | Presence of | | | | | [phone] | permanent cardiac | | | | [...] | | | | | | [place], | | | | | | [place] [address] | | | | | | [phone] | | | | | | | | +--------+ + + + + documented as of this encounter Visit Diagnoses Not on filedocumented in this encounter"
--- OUTSIDE RECORDS SUMMARY | ~2019-11-12 | XMS | Encounter Summary ---
Demographics + + + | Address | [address] [place] [address] | | | [place] [address] | + + + | Home Phone [...] [place] | | | | | [address] | | + + + + + Care Team Providers + +------+ + | Care Hot Plate Plywood Press Laborer Name | Role | Phone [...] Center at [facility] [address] | MD [address] | | | | | [address] | [place], [place] | | | | | Mailcode: Center | [address] | | | | | [facility] and | [phone] | | | | | [facility] 2 | | | | | | [place], [place] | | | | | | [address] | | | | | | [phone] | | | +--------+ + + + [...]
--- OUTSIDE RECORDS SUMMARY | ~2019-11-12 | XMS | Encounter Summary ---
Demographics + + + | Address | [address] | | | [place] [address] | + + + | Home Phone [...] + + | 10/13/ | Hospital | [facility] | | | | 2007 | Encounter | MED CTR EMERGENCY | | | | | | [place] [address] | | | | | | [place] | | | | | | [address] | | | | | | [phone] | | | +--------+ + + + [...] Dx); | | | | | [place] [address] | Presence of | | | | | [phone] | permanent cardiac | | | | [...] | | | | | [place], | | | | | | [place] [address] | | | | | | [phone] | | | | | | | | +--------+ + + + + documented as of this encounter Visit Diagnoses Not on filedocumented in this encounter"
--- OUTSIDE RECORDS SUMMARY | ~2019-11-12 | XMS | Encounter Summary ---
Demographics + + + | Address | [address] | | | [place] [address] | + + + | Home Phone [...] Providers + +------+ + | Care Metalizing Supervisor Name | Role | Phone | [...] 2019 | | GASTROENTEROLOGY | [address], [place] | | | | | [address] [place] | [address] [place], [place] | | | | | [address] [place], [place] | [address] | | | | | [address] | | | | | | [phone] | | | +--------+ + + + [...] Dx); | | | | | [place] [address] | Presence of | | | | | [phone] | permanent cardiac | | | | [...] | 2020 | Visit | | Janeen, NETWORK SECURITY ADMINISTRATOR [address] | | | | | | [place], | | | | | | [place] [address] | | | | | | [phone] | | | | | | | | +--------+ + + + + documented as of this encounter Visit Diagnoses Not on filedocumented in this encounter"
--- OUTSIDE RECORDS SUMMARY | ~2019-11-12 | XMS | Encounter Summary ---
Demographics + + + | Address | [address] | | | [place] [address] | + + + | Home Phone [...] Providers + +------+ + | Care Mailroom Assistant Name | Role | Phone | [...] | | GASTROENTEROLOGY | [address] [place], [place] | | | | | [address] [place] | [address] [place], [place] | | | | | [address] [place], [place] | [address] | | | | | [address] | | | | | | [phone] | | | +--------+ + + + [...] Dx); | | | | | [place] [address] | Presence of | | | | | [phone] | permanent cardiac | | | | [...] | | | | | | [place] [address] | | | | | | [phone] | | | | | | | | +--------+ + + + + documented as of this encounter Visit Diagnoses Not on filedocumented in this encounter"
--- OUTSIDE RECORDS SUMMARY | ~2019-11-12 | XMS | Encounter Summary ---
Demographics + + + | Address | [address] | | | [place] [address] | + + + | Home Phone [...] Team Providers + +------+ + | Care Blindstitch Lining Feller Name | Role | Phone | [...] 03/24/ | Telephone | [facility] | [place], | Other (chest pain) | | 2018 | | CARDIOLOGY [address] | [place] [address] | | | | | [place], | [place], | | | | | [place] [address] | [place] [address] | | | | | [phone] | | | | | | | [...] Dx); | | | | | [place] [address] | Presence of | | | | | [phone] | permanent cardiac | | | | [...] | 2020 | Visit | | Janeen, DOCUMENTATION LIAISON [address] | | | | | | [place], | | | | | | [place] [address] | | | | | | [phone] | | | | | | | | +--------+ + + + + documented as of this encounter Visit Diagnoses Not on filedocumented in this encounter"
--- OUTSIDE RECORDS SUMMARY | ~2019-11-12 | XMS | Encounter Summary ---
Demographics + + + | Address | [address] | | | [place] [address] | + + + | Home Phone [...] Providers + +------+ + | Care Senior Director Insight Name | Role | Phone | + +------+ + | Michael Amanda DO | PCP | | + +------+ + Encounter Details +--------+ + + + + | Date | Type | Department | Care Team | Description | +--------+ + + + + | 05/11/ | Hospital | [facility] | Conversion | Lumbago; | | 2013 | Encounter | MEDICAL CENTER XRAY | Transaction, | Postlaminectomy | | | | [address] | Provider Unknown | syndrome, cervical | | | | [place], [place] | | region; Cervicalgia | | | | [address] | (Fax) | | | | | [phone] | | | +--------+ + + + [...] + + + +---------+ + + | Hutchinson-3 Fatty | CAPS, one capsule by | [...] 1147 Date of Service: 05/11/141145 Status: Signed Stereotype Finisher: Christine Mcgraw Report called to Brittany morejon [...] | 2018 | Monitor | | [address] [place] | Interrogation | | | | | [place], | (Primary Dx); | | | | | [place] [address] | Presence of | | | | | [phone] | permanent cardiac | | | | [...] W | | | | | | [place], | | | | | | [place] [address] | | | | | | [phone] | | | | | | | [...]
--- OUTSIDE RECORDS SUMMARY | ~2019-11-12 | XMS | Encounter Summary ---
Demographics + + + | Address | [address] | | | [place] [address] | + + + | Home Phone [...] Providers + +------+ + | Care Rope Maker Name | Role | Phone | [...] | 07/07/ | Telephone | [facility] | Daljit Singletary, | Appointment | | 2012 | | CARDIOLOGY [address] | MD [address] | | | | | [place], | [place], | | | | | [place] [address] | [place] [address] | | | | | [phone] | | | | | | | [...] 2019 | Monitor | | MD [address] [place] | Interrogation | | | | | [place], | (Primary Dx); | | | | | [place] [address] | Presence of | | | | | [phone] | permanent cardiac | | | | [...] W | | | | | | [place], | | | | | | [place] [address] | | | | | | [phone] | | | | | | | | +--------+ + + + + documented as of this encounter Visit Diagnoses Not on filedocumented in this encounter"
--- OUTSIDE RECORDS SUMMARY | ~2019-11-12 | XMS | Encounter Summary ---
Demographics + + + | Address | [address] | | | [place] [address] | + + + | Home Phone [...] [address] | | | | | [place], | [place], | | | | | [place] [address] | [place] [address] | | | | | [phone] | [phone] | | | | | | | [...] | Monitor | | MD [address] [place] | Interrogation | | | | | [place], | (Primary Dx); | | | | | [place] [address] | Presence of | | | | | [phone] | permanent cardiac | | | | [...] | | | | | | [place] [address] | | | | | | [phone] | | | | | | | | +--------+ + + + + documented as of this encounter Visit Diagnoses Not on filedocumented in this encounter"
--- OUTSIDE RECORDS SUMMARY | ~2019-11-12 | XMS | Encounter Summary ---
Demographics + + + | Address | [address] [place] [address] | | | [place] [address] | + + + | Home Phone [...] [place] | | | | | [address] | | + + + + + Care Team Providers + +------+ + | Care Glove Pairer Name | Role | Phone | + [...] | 2019 | | Center at [facility] [address] | MD [address] | | | | | [address] | [place], [place] | | | | | Mailcode: Center | [address] | | | | | [facility] and | [phone] | | | | | [facility] 2 | | | | | | [place], [place] | | | | | | [address] | | | | | | [phone] | | | +--------+ + + + [...]
--- OUTSIDE RECORDS SUMMARY | ~2019-11-12 | XMS | Encounter Summary ---
Demographics + + + | Address | [address] | | | [place] [address] | + + + | Home Phone [...] + | 06/17/ | Hospital | [facility] | | | | 2008 | Encounter | MED CTR EMERGENCY | | | | | | [place] [address] | | | | | | [place] | | | | | | [address] | | | | | | [phone] | | | +--------+ + + + [...] Dx); | | | | | [place] [address] | Presence of | | | | | [phone] | permanent cardiac | | | | [...] W | | | | | | [place], | | | | | | [place] [address] | | | | | | [phone] | | | | | | | | +--------+ + + + + documented as of this encounter Visit Diagnoses Not on filedocumented in this encounter"
--- OUTSIDE RECORDS SUMMARY | ~2019-11-12 | XMS | Encounter Summary ---
Demographics + + + | Address | [address] | | | [place] [address] | + + + | Home Phone [...] | | | | Sinoatrial | Jose, TEAM ASSEMBLY LINE MACHINE OPERATOR | [address] | | | | | node | [address] | [place], | | | | | dysfunction | [place] | [place] | | | | | (HCC) | [place], [place] | [address] | | | | | Coronary | [address] | Phone: | | | | | artery | Phone: | [phone] | | | | | disease | [phone] | Fax: | | | | | involving | Fax: | [phone] | | | | | kiowa tribe | [phone] | | | | | | coronary | | | | | | | artery of | | | | | | | ki[place] tribe heart | | | | | [...] | | | | | | Complete [place] | | | | | | | ECHO HEART | | | | | | | XTHORACIC,[place] | | | | | | | MPLETE W | | | | | | | DOPPLER [place] | | | | | | | [...] | Visit | CARDIOLOGY [address] | TEAM ASSEMBLY LINE MACHINE OPERATOR [address] | dysfunction (HCC) | | | | [place], | [place], [place] | with symptomatic | | | | [place] [address] | [address] | bradycardia (Primary | | | | [phone] | | Dx); Coronary | | | | | | artery disease | | | | | | involving ki[place] | | | | | | coronary artery of | | | | | | [place] heart without | | | | | [...] Preventative health care Coronary artery disease involving [place] coronary artery without angina pectoris Cannabis [...] 3rd dose, call 911 100 tablet 3 [place]-3 Fatty Acids (SALMON OIL-1000 PO) CAPS, one [...] scanned Paceart documentation and device PDF in [employer] for interrogation (with progr amming changes) performed [...] to go back in 3 days to [place] for an attempt of ablation under general [...] this chart may have been created with ii4b voice recognition software. Occasi onal wrong-word or [...] Dx); | | | | | [place] [address] | Presence of | | | | | [phone] | permanent cardiac | | | | [...] [place], | | | | | | [place] [address] | | | | | | [phone] | | | | | | | [...] [facility] | [facility] | | [place] Room Number SARAH Patient | [facility] | | [id number] Date of Study 06/16/2016 Number | - IMAGING | | Visit Number [id number] | | | Referring Physician HELLBERG JOSE Number Date of 1960 | | | Harbour Master LUIS FERNANDO DUARTE Age | | | 56 year(s) Interpreting | | | GURJIT TROY | | | Vegetable Washing Machine Operator SYDNI SINGLETARY, | | | Gender | | | Male Nurse Procedure Type of Study TTE | | | procedure: ECHO Complete. Procedure dateDate: 06/16/2016Start: 10:55 | | | AM Technical Quality: Adequate visualizationStudy Location: Echo | | | LabIndications: CAD [place] CORONARY ARTERY 414.01/ I25.10 and | | [...] BARRY Room Number SARAH | | Patient [id number] Date of Study 06/16/2016 Number Visit Number | | [id number] Referring Physician JOSE ARMANDO GARCIA Number | | Date of 1960 Harbour Master LUIS FERNANDO DUARTE Age | | 56 year(s) Interpreting GURJIT TROY | | Vegetable Washing Machine Operator SYDNI SINGLETARY, | | Gender Male NurseProcedureType of Study TTE | | procedure: ECHO Complete.Procedure dateDate: 07/26/2016Start: 10:55 AMTechnical Quality: | | Adequate visualizationStudy Location: Echo LabIndications: CAD [place] CORONARY ARTERY | | 414.01/ I25.10 and [...] [address] | [address] | [place] | [phone] | | [facility] | | [address] | | | - IMAGING | | [...] | | 2. Coronary artery disease involving kiowa tribe coronary artery of | | | ki[place] heart without angina pectoris I25.10 414.01 [...]
--- OUTSIDE RECORDS SUMMARY | ~2019-11-12 | XMS | Encounter Summary ---
Demographics + + + | Address | [address] | | | [place] [address] | + + + | Home Phone [...] + + | 05/11/ | Hospital | [facility] | Conversion | Lumbago; | | 2013 | Encounter | MEDICAL CENTER XRAY | Transaction, | Postlaminectomy | | | | [address] | Provider Unknown | syndrome, cervical | | | | [place], [place] | | region; Cervicalgia | | | | [address] | (Fax) | | | | | [phone] | | | +--------+ + + + [...] + + + +---------+ + + | Railroad-3 Fatty | CAPS, one capsule by | [...] 1147 Date of Service: 05/11/141145 Status: Signed Registered Nurses: Christine Mcgraw Report called to Brittany morejon [...] 2018 | Monitor | | [address] [place] | Interrogation | | | | | [place], | (Primary Dx); | | | | | [place] [address] | Presence of | | | | | [phone] | permanent cardiac | | | | [...] | | | | | | [place], | | | | | | [place] [address] | | | | | | [phone] | | | | | | | [...]
--- OUTSIDE RECORDS SUMMARY | ~2019-11-12 | XMS | Encounter Summary ---
Demographics + + + | Address | [address] | | | [place] [address] | + + + | Home Phone [...] Providers + +------+ + | Care Voip Network Technician Name | Role | Phone | [...] [place] | | | | | | [address] | | | | | | [phone] | | | +--------+ + + + [...] | 2018 | Monitor | | [address] [place] | Interrogation | | | | | [place], | (Primary Dx); | | | | | [place] [address] | Presence of | | | | | [phone] | permanent cardiac | | | | [...] W | | | | | | [place], | | | | | | [place] [address] | | | | | | [phone] | | | | | | | | +--------+ + + + + documented as of this encounter Visit Diagnoses Not on filedocumented in this encounter"
--- OUTSIDE RECORDS SUMMARY | ~2019-11-12 | XMS | Encounter Summary ---
Demographics + + + | Address | [address] | | | [place] [address] | + + + | Home Phone [...] Providers + +------+ + | Care Counter Manager Name | Role | Phone [...] + | 02/16/ | Telephone | [facility] | Silvia, | Other (concerned | | 2012 | | CARDIOLOGY [address] | [place] [address] | about palpitations) | | | | [place], | [place], | | | | | [place] [address] | [place] [address] | | | | | [phone] | [phone] | | | | | | | [...] Dx); | | | | | [place] [address] | Presence of | | | | | [phone] | permanent cardiac | | | | [...] W | | | | | | [place], | | | | | | [place] [address] | | | | | | [phone] | | | | | | | | +--------+ + + + + documented as of this encounter Visit Diagnoses Not on filedocumented in this encounter"
--- OUTSIDE RECORDS SUMMARY | ~2019-11-12 | XMS | Encounter Summary ---
Demographics + + + | Address | [address] | | | [place] [address] | + + + | Home Phone [...] Providers + +------+ + | Care Post Doctoral Fellow Name | Role | Phone | + +------+ + PCP | Unavailable | + +------+ + Encounter Details +--------+ + + + + | Date | Type | Department | Care Team | Description | +--------+ + + + + | 02/28/ | [facility] | [facility] | Geri Angel, | | | 2011 | Encounter | MED CTR XRAY [address] | SENIOR CHEMICAL ENGINEER [address] | | | | | [place] | [address] [place] | | | | | [place] [address] | [address] | | | | | [phone] | | | +--------+ + + + [...] Dx); | | | | | [place] [address] | Presence of | | | | | [phone] | permanent cardiac | | | | [...] | | | | | [place], | | | | | | [place] [address] | | | | | | [phone] | | | | | | | [...] Performed At | + + + | [facility] Diagnostic Imaging Department | [place] | | [address] [facility] | [facility] | | LEFT HEART CATHETERIZATION [...] was taken to | | | Cardiac Career Developer. He was prepared and draped in the usual fashion | | | under a sterile technique and local anesthesia, percutaneous access | | | was obtained using #6- Hong Konger sheath in the right femoral artery. | | | Right heart cath was not performed in this patient. Left | | | ventriculography was performed using #6-Hong Konger pigtail catheter. | | | The selective coronary angiography were then performed in several | | | sagittal and oblique projection using the 6-Hong Konger JL 4 and #6 Hong Konger | | | 3DRC diagnostic catheters. The [...] Transcribed | | | Date/Time: 02/29/2012 09:09 Porcelain Slusher: | | | <Electronically Signed by Daljit Singletary MD [facility] FASE> 02/29/12 | | | 1002 | | + + + + + | Procedure Note | + + | Kevin, Rad Conversion - 12/29/2013 5:04 PM [facility] | | Diagnostic Imaging Department | | [address] [place] | | | | | | [...] patient was taken to Cardiac | | Career Developer. He was prepared and draped in the usual fashion under a sterile | | technique and local anesthesia, percutaneous access was obtained using #6- | | [place]er sheath in the right femoral artery. Right heart cath was not performed | | in this patient. Left ventriculography was performed using #6-Hong Konger pigtail | | catheter. The selective coronary angiography were then performed in several | | sagittal and oblique projection using the 6-Hong Konger JL 4 and #6 Hong Konger 3DRC | | diagnostic catheters. The patient [...] | Transcribed Date/Time: 02/29/2012 09:09 | | Porcelain Slusher: | | <Electronically Signed by Daljit Singletary MD [facility] ADELINE> 02/29/12 1002 | + [...]
--- OUTSIDE RECORDS SUMMARY | ~2019-11-12 | XMS | Encounter Summary ---
Demographics + + + | Address | [address] | | | [place] [address] | + + + | Home Phone [...] Providers + +------+ + | Care Warehouse Shipping Receiving Clerk Name | Role | Phone | + +------+ + PCP | Unavailable | + +------+ + Encounter Details +--------+ + + + + | Date | Type | Department | Care Team | Description | +--------+ + + + + | 10/13/ | Hospital | [facility] | | | | 2007 | Encounter | MED CTR EMERGENCY | | | | | | [place] [address] | | | | | | [place] | | | | | | [address] | | | | | | [phone] | | | +--------+ + + + [...] Dx); | | | | | [place] [address] | Presence of | | | | | [phone] | permanent cardiac | | | | [...] W | | | | | | [place], | | | | | | [place] [address] | | | | | | [phone] | | | | | | | | +--------+ + + + + documented as of this encounter Visit Diagnoses Not on filedocumented in this encounter"
--- OUTSIDE RECORDS SUMMARY | ~2019-11-12 | XMS | Encounter Summary ---
Demographics + + + | Address | [address] | | | [place] [address] | + + + | Home Phone [...] Providers + +------+ + | Care Pediatric Oncology Nurse Name | Role | Phone | [...] 2019 | | GASTROENTEROLOGY | [address], [place] | | | | | [address] [place] | [address] [place], [place] | | | | | [address] [place], [place] | [address] | | | | | [address] | | | | | | [phone] | | | +--------+ + + + [...] Interrogation | | | | | [facility], | (Primary Dx); | | | | | [place] [address] | Presence of | | | | | [phone] | permanent cardiac | | | | [...] | | | | | | [place] [address] | | | | | | [phone] | | | | | | | | +--------+ + + + + documented as of this encounter Visit Diagnoses Not on filedocumented in this encounter"
--- OUTSIDE RECORDS SUMMARY | ~2019-11-12 | XMS | Encounter Summary ---
Demographics + + + | Address | [address] | | | [place] [address] | + + + | Home Phone [...] Providers + +------+ + | Care Barrel Rifler Broach Name | Role | Phone | + [...] + + | 07/01/ | Hospital | [facility] | Scotty Galdamez, | DDD (degenerative | | 2018 | Encounter | MED CTR XRAY [address] | VACATION SALES ADVISOR [address] | disc disease), | | | | [place] | [address] | lumbar; Chronic | | | | [place] [address] | [place] [address] | left-sided low back | | | | [phone] | [phone] | pain with left-sided | | | [...] + + +---------+ + + | [place] Hero-3 Fatty | CAPS, one capsule by | [...] | | | | | [place], | (Primary Dx); | | | | | [place] [address] | Presence of | | | | | [phone] | permanent cardiac | | | | [...] | | | | | | [place], | | | | | | [place] [address] | | | | | | [phone] | | | | | | | [...]
--- OUTSIDE RECORDS SUMMARY | ~2019-11-12 | XMS | Encounter Summary ---
Demographics + + + | Address | [address] | | | [place] [address] | + + + | Home Phone [...] Providers + +------+ + | Care Lathe Machine Operator Name | Role | Phone | + +------+ + PCP | Unavailable | + +------+ + Encounter Details +--------+ + + + + | Date | Type | Department | Care Team | Description | +--------+ + + + + | 02/07/ | [facility] | [facility] | Unknown, | | | 1995 | Encounter | MED CTR XRAY [address] | MD Stefany | | | | | [place] | | | | | | [place] [address] | (Fax) | | | | | [phone] | | | +--------+ + + + [...] | Monitor | | MD [address] | Interrogation | | | | | [place], | (Primary Dx); | | | | | [place] [address] | Presence of | | | | | [phone] | permanent cardiac | | | | [...] | | | | | | [place] [address] | | | | | | [phone] | | | | | | | | +--------+ + + + + documented as of this encounter Visit Diagnoses Not on filedocumented in this encounter"
--- OUTSIDE RECORDS SUMMARY | ~2019-11-12 | XMS | Encounter Summary ---
Demographics + + + | Address | [address] | | | [place] [address] | + + + | Home Phone [...] Providers + +------+ + | Care Veneer Repairer Machine Name | Role | Phone | [...] + | 06/20/ | Telephone | [facility] | Daljit Singletary, | Chest Pain | | 2018 | | CARDIOLOGY [address] | MD [address] [place] | | | | | [place], | [place], | | | | | [place] [address] | [place] [address] | | | | | [phone] | [phone] | | | | | | | [...] Dx); | | | | | [place] [address] | Presence of | | | | | [phone] | permanent cardiac | | | | [...] W | | | | | | [place], | | | | | | [place] [address] | | | | | | [phone] | | | | | | | | +--------+ + + + + documented as of this encounter Visit Diagnoses Not on filedocumented in this encounter"
--- OUTSIDE RECORDS SUMMARY | ~2019-11-12 | XMS | Encounter Summary ---
Demographics + + + | Address | [address] | | | [place] [address] | + + + | Home Phone [...] Providers + +------+ + | Care Driver Trainee Name | Role | Phone | + +------+ + | Michael Amanda DO | PCP | | + +------+ + Encounter Details +--------+ + + + + | Date | Type | Department | Care Team | Description | +--------+ + + + + | 07/25/ | Abstract | [facility] | Michael Amanda, | | | 2013 | | [facility] | DO [address] | | | | | [address] | [place] | | | | | [place] | [address] | | | | | [address] | | | | | | [phone] | | | +--------+ + + + [...] 2019 | Monitor | | [address] | Interrogation | | | | | [place], | (Primary Dx); | | | | | [place] [address] | Presence of | | | | | [phone] | permanent cardiac | | | | [...] | | | | | | [place] [address] | | | | | | [phone] | | | | | | | | +--------+ + + + + documented as of this encounter Visit Diagnoses Not on filedocumented in this encounter"
--- OUTSIDE RECORDS SUMMARY | ~2019-11-12 | XMS | Encounter Summary ---
Demographics + + + | Address | [address] | | | [place] [address] | + + + | Home Phone [...] Providers + +------+ + | Care Group Counselor Name | Role | Phone | [...] | | | | [place] | | [address] Phone: | | | | | CYSTO/URETER | | [phone] | | | | | O | | Fax: | | | | | W/LITHOTRIPS | | [phone] | | | | | Y &INDWELL [...] + | 04/13/ | Surgery | [facility] | Matthew Uriarte | Cystoscopy, Left | | 2018 | | MED CTR OR INTRA OP | Dahl, MD [address] | ureteroscopy with | | | | [address] | [address] [place] | laser lithotripsy, | | | | [place], [place] | [address] | Left ureteral stent | | | | [address] | | placement | | | | [phone] | | | +--------+---------+ + + + [...] Stones, Treating: Ureteroscopic Stone Removal (Citizen [place])Stents, Ureteral (Citizen [place])documented in this encounter Medications at Time of [...] + + + +---------+ + + | Crouse-3 Fatty | CAPS, one capsule by | [...] Dx); | | | | | [place] [address] | Presence of | | | | | [phone] | permanent cardiac | | | | [...] | | | | | | [place] [address] | | | | | | [phone] | | | | | | | [...] [facility] | | | | | | at:[phone]. | | | | + + + [...] + | Performed at: 01 - [facility] [place] [address], | REFERENCE LAB | | [place], [place] [address] Pmo Business Analyst: Yeny Rios MD, Phone: | ARSH - KINA | | [phone] | | + + + + + + + + | Performing | Address | City/State/Zipcode | Phone Number | | Organization | | | | + + + + + | REFERENCE LAB | [address] | [place] [address] | [phone] | | [facility] | [address] [...] [address] | [place] | [phone] | | [facility] | | [address] | | | - LABORATORY | | [...] [address] | [place] | [phone] | | [facility] | | [address] | | | - LABORATORY | | [...] [address] | [place] | [phone] | | [facility] | | [address] | | | - LABORATORY | | [...] ST. | [address] | [place], [place] | [phone] | | [facility] | | [address] | | | - LABORATORY | | [...] | 0.92 | 0.70 - 1.30 | [facility] | | | | | mg/dL | [facility] | | | | | | MEDICAL | | | | | | CENTER - | | | | | | LABORATORY | | + + + + + + | eGFR if not | >60Comment: GLOMERULAR | >=60 | [facility] | | | | FILTRATION | mL/min/1.73m2 | [facility] | | | [place] | RATE,ESTIMATED | | MEDICAL | | | | mL/min/1.10p5Cffn than | | CENTER - | | [...] [address] | [place] | [phone] | | [facility] | | [address] | | | - LABORATORY | | [...] | | | dose on [facility] 04/13/19 at 1400, | | | Start 8 hours after pre-op dose., | | | Post-op/Phase II | | + +---+ | | | + +---+ | albuterol 2.5 mg/3 mL nebulizer | | | solution 2.5 mg 2.5 mg, | | | Nebulization, ONCE PRN, Wheezing, | | | Starting [facility] 04/13/19 at 0917, | | | [...] 40, | | | Starting [facility] 04/13/19 at 0917, For | | [...] | | | | | | | ceteqz-hpb-pwxdv use of at least | | | [...]
--- OUTSIDE RECORDS SUMMARY | ~2019-11-12 | XMS | Encounter Summary ---
Demographics + + + | Address | [address] | | | [place] [address] | + + + | Home Phone [...] Team Providers + +------+ + | Care Micro Photographer Name | Role | Phone | [...] | | | | CENTER [address] | [place], [place] | (Primary Dx) | | | | [place], [place] | [address] | | | | | [address] | | | | | | [phone] | | | +--------+ + + + [...] Dx); | | | | | [place] [address] | Presence of | | | | | [phone] | permanent cardiac | | | | [...] W | | | | | | [place], | | | | | | [place] [address] | | | | | | [phone] | | | | | | | [...] | mL/min/1.73m2 | MICHELLE | | | ANDORRAN | RATE,ESTIMATED | | MEDICAL | | | | mL/min/1.26m8Qkhg than | | CENTER - | | [...] ST. | [address] | [place] | [phone] | | [facility] | | [address] | | | - LABORATORY | | [...] | | | | ANGELA MARADIAGA MD ([id number]) | | | | | | on [...] | | | | | | [employer] | | | | | [...] ST. | [address] | [place], [place] | [phone] | | [facility] | | [address] | | | - LABORATORY | | [...] | [address] | [place], [place] | [phone] | | [facility] | | [address] | | | - LABORATORY | | [...]
--- OUTSIDE RECORDS SUMMARY | ~2019-11-12 | XMS | Encounter Summary ---
Demographics + + + | Address | [address] | | | [place] [address] | + + + | Home Phone [...] + +------+ + | Care Patient Relations Representative Name | Role | Phone [...] | | | | [place], [place] | [phone] | | | | | [address] | | | | | | [phone] | | | +--------+ + + + [...] + + + +---------+ + + | [place]-3 Fatty | CAPS, one capsule by | [...] Dx); | | | | | [place] [address] | Presence of | | | | | [phone] | permanent cardiac | | | | [...] | | | | | | [place], | | | | | | [place] [address] | | | | | | [phone] | | | | | | | [...]
--- OUTSIDE RECORDS SUMMARY | ~2019-11-12 | XMS | Encounter Summary ---
Demographics + + + | Address | [address] | | | [place] [address] | + + + | Home Phone [...] Providers + +------+ + | Care Inspector Subassembly Name | Role | Phone | + +------+ + PCP | Unavailable | + +------+ + Encounter Details +--------+ + + + + | Date | Type | Department | Care Team | Description | +--------+ + + + + | 11/14/ | [facility] | [facility] | William Hirsch | | | 1999 | Encounter | MED CTR EMERGENCY | MD Cristobal [address] | | | | | CENTER [address] | [address] | | | | | [place] | [place] [address] | | | | | [address] | [phone] | | | | | [phone] | | | +--------+ + + + [...] Dx); | | | | | [place] [address] | Presence of | | | | | [phone] | permanent cardiac | | | | [...] W | | | | | | [place], | | | | | | [place] [address] | | | | | | [phone] | | | | | | | | +--------+ + + + + documented as of this encounter Visit Diagnoses Not on filedocumented in this encounter"
--- OUTSIDE RECORDS SUMMARY | ~2019-11-12 | XMS | Encounter Summary ---
Demographics + + + | Address | [address] | | | [place] [address] | + + + | Home Phone [...] Providers + +------+ + | Care Lehr Attendant Name | Role | Phone | [...] + | 06/04/ | Hospital | [facility] | Sariah, | Cervical spinal | | 2016 | Encounter | MED CTR XRAY [address] | [place] Mason, DIRECTOR OF TRANSPORTATION [address] | stenosis | | | | [place] | [id number] | | | | | [place] [address] | [place] [address] | | | | | [phone] | [phone] | | | | | | | [...] + + + +---------+ + + | Forsan-3 Fatty | CAPS, one capsule by | [...] Dx); | | | | | [place] [address] | Presence of | | | | | [phone] | permanent cardiac | | | | [...] | | | | | | [place], | | | | | | [place] [address] | | | | | | [phone] | | | | | | | [...]
--- OUTSIDE RECORDS SUMMARY | ~2019-11-12 | XMS | Encounter Summary ---
Demographics + + + | Address | [address] | | | [place] [address] | + + + | Home Phone [...] Providers + +------+ + | Care Paper And Pulp Mill Worker Name | Role | Phone [...] | 05/08/ | Telephone | [facility] | Emmanuel Daniel MD | Other | | 2019 | | GASTROENTEROLOGY | [address], [place] | | | | | [address] [place] | [address] [place], [place] | | | | | [address] [place], [place] | [address] | | | | | [address] | | | | | | [phone] | | | +--------+ + + + [...] 2019 | Monitor | | MD [address] | Interrogation | | | | | [place], | (Primary Dx); | | | | | [place] [address] | Presence of | | | | | [phone] | permanent cardiac | | | | [...] | | | | | | [place], | | | | | | [place] [address] | | | | | | [phone] | | | | | | | | +--------+ + + + + documented as of this encounter Visit Diagnoses Not on filedocumented in this encounter"
--- OUTSIDE RECORDS SUMMARY | ~2019-11-12 | XMS | Encounter Summary ---
Demographics + + + | Address | [address] | | | [place] [address] | + + + | Home Phone [...] Providers + +------+ + | Care Tumbler Dyeing Machine Operator Name | Role | Phone | + +------+ + PCP | Unavailable | + +------+ + Encounter Details +--------+ + + + + | Date | Type | Department | Care Team | Description | +--------+ + + + + | 04/23/ | Hospital | [facility] | | | | 2007 - | Encounter | MED CTR MED ONC | | | | | | [address] | | | | 04/24/ | | [place] [address] | | | | 2007 | | [phone] | | | +--------+ + + + [...] Dx); | | | | | [place] [address] | Presence of | | | | | [phone] | permanent cardiac | | | | [...] W | | | | | | [place], | | | | | | [place] [address] | | | | | | [phone] | | | | | | | | +--------+ + + + + documented as of this encounter Visit Diagnoses Not on filedocumented in this encounter"
--- OUTSIDE RECORDS SUMMARY | ~2019-11-12 | XMS | Encounter Summary ---
Demographics + + + | Address | [address] | | | [place] [address] | + + + | Home Phone [...] Team Providers + +------+ + | Care Railcar Switcher Name | Role | Phone | [...] Results | | 2013 | | [facility] [place] | DO [address] | | | | | [address] | [place] | | | | | [place] | [address] | | | | | [address] | | | | | | [phone] | | | +--------+ + + + [...] 2018 | Monitor | | [address] [place] | Interrogation | | | | | [place], | (Primary Dx); | | | | | [place] [address] | Presence of | | | | | [phone] | permanent cardiac | | | | [...] | | | | | | [place] [address] | | | | | | [phone] | | | | | | | | +--------+ + + + + documented as of this encounter Visit Diagnoses Not on filedocumented in this encounter"
--- OUTSIDE RECORDS SUMMARY | ~2019-11-12 | XMS | Encounter Summary ---
Demographics + + + | Address | [address] | | | [place] [address] | + + + | Home Phone [...] Providers + +------+ + | Care Yard Associate Name | Role | Phone | [...] W | | | | | [place], | [place], | | | | | [place] [address] | [place] [address] | | | | | [phone] | [phone] | | | | | | | [...] Monitor | | MD [address] [place] | Interrogation | | | | | [place], | (Primary Dx); | | | | | [place] [address] | Presence of | | | | | [phone] | permanent cardiac | | | | [...] | | | | | | [place], | | | | | | [place] [address] | | | | | | [phone] | | | | | | | [...] | | [facility] | | [address] | | | - LABORATORY | | [...] | | | LAB | | | [place], | | | | | | [...] | [address] | [address] | [place] | | | [facility] | | [address] | | | - LABORATORY | | [...]
--- OUTSIDE RECORDS SUMMARY | ~2019-11-12 | XMS | Encounter Summary ---
Demographics + + + | Address | [address] | | | [place] [address] | + + + | Home Phone [...] Providers + +------+ + | Care Field Liability Generalist Name | Role | Phone | + +------+ + | Kirk French MD | PCP | | + +------+ + Encounter Details +--------+ + + + + | Date | Type | Department | Care Team | Description | +--------+ + + + + | 12/24/ | [facility] | [facility] | Emmanuel Daniel MD | Pain of upper | | 2018 | Encounter | MED CTR MP INTRA OP | [address], [place] | abdomen (Primary | | | | [address] | [address] [place], [place] | Dx); Functional | | | | [place], [place] | [address] | diarrhea; Weight | | | | [address] | | loss | | | | [phone] | | | +--------+ + + + [...] Dx); | | | | | [place] [address] | Presence of | | | | | [phone] | permanent cardiac | | | | [...] | | | | | | [place], | | | | | | [place] [address] | | | | | | [phone] | | | | | | | [...] + | Performed at: 01 - [facility] [place] [address], | REFERENCE LAB | | [place], [place] [id number] Department Head [employer]: William Andrew MD, Phone: | ARSH CASTANON | | [phone] | | + + + + + + + + | Performing | Address | City/State/Zipcode | Phone Number | | Organization | | | | + + + + + | REFERENCE LAB | [address] | [place], [place] [address] | [phone] | | AR[facility] - [facility] | Drive [...] | [address] | [place] | [phone] | | [facility] | | [address] | | | - LABORATORY | | [...] [address] | [place] | [phone] | | [facility] | | [address] | | | - LABORATORY | | [...] + | [address] | [address] | [place] | [phone] | | [facility] | | [address] | | | - LABORATORY | | [...] + + | Performed at: 01 - [facility] [address], | REFERENCE LAB | | [place], [place] [id number] Department Head [employer]: William Andrew MD, Phone: | RASH CASTANON | | [phone] | | + + + + + + + + | Performing | Address | City/State/Zipcode | Phone Number | | Organization | | | | + + + + + | REFERENCE LAB | [address] | [place] [address] | [phone] | | [facility] - [facility] | Drive [...] ST. | [address] | [place] | [phone] | | [facility] | | [address] | | | - [...] ST. | [address] | [place], [place] | [phone] | | [facility] | | [address] | | | - LABORATORY | | [...] [address] | [place] | [phone] | | [facility] | | [address] | | | - LABORATORY | | [...] [address] | [place] | [phone] | | [facility] | | [address] | | | - LABORATORY | | [...] [address] | [place] | [phone] | | [facility] | | [address] | | | - LABORATORY | | | | + + + + + EGD (12/24/2017 1:19 PM PST) + + | Specimen | + + | | + + + + -+ | Narrative | Performed At | + + -+ | | [facility] | | GastroenterologyPatient Name: Moe Venegas Date: 12/24/2017 | [facility]ATION | | 1:19 PMMRN: [id number] #: [id number] of : | | | 9Admit Type: AmbulatoryAge: 57Room: [facility] 01Gender: MaleNote | | | Status: FinalizedAttending MD: Emmanuel Daniel , [facility]cedure: | | | Upper GI endoscopyIndications: Diarrhea, Weight | | | lossProviders: Emmanuel Daniel MD, Maria Isabel Morris RN, | | | Kim Hicks, Yarn Handler, Jarett | | | Sapna Barakat MD [...] the anesthesiologist and | | | the auto body repair technician in the endoscopy suite. Mental [...] | | [facility], [address] [facility] | | | [place] [address] | | | - Discharge patient to [...] Out: 1:31:13 PM | | | [facility], [address] [facility], [place], [place] | | | [address] | | + + -+ + +---------+ [...] 12/24/2017 | [facility] | | 1:17 PMMRN: [id number] #: [id number] of : | | | 9Admit Type: AmbulatoryAge: 57Room: [facility] 01Gender: MaleNote | | | Status: FinalizedAttending MD: Emmanuel Daniel , [facility]ITALrocedure: | | | ColonoscopyIndications: Clinically significant diarrhea of | | | unexplained originProviders: Emmanuel Daniel MD, Maria Isabel | | | Arturo RN, Kim Hicks, Yarn Handler, | | | Jarett Barakat MD (Anesthesia [...] | | | the anesthesiologist and the auto body repair technician in the endoscopy suite. | [...] Scope In: 1:32:55 PMScope Out: 1:48:57 PM [facility] | | | [facility], [address] [place] [address] | | | [phone] | | | - Await pathology results. [...] PM | | | [facility], [address] [place] [address] | | | [address] | | + + -+ + +---------+ [...] developed and its performance characteristics determined by [facility] | | [employer]. It has not been cleared or approved by the U.S. Food | | | and Drug Administration. The FDA has determined that such clearance | | | or approval is not necessary. This test is used for clinical | | | purposes. It should not be regarded as investigational or for | | | research. [employer] is certified under the Clinical | | | Laboratory Improvement Amendments of 1988 (CLIA) as qualified to | | | perform high complexity clinical laboratory testing. This assay | | | has not been validated for specimens that have been decalcified. | | | PERFORMING LABORATORY: Tissue processing and slide preparation were | | | performed by [employer], [facility] ., [facility] | | | [place] [address] (Conversion Developer: Evan Frausto M.D. CLIA#: | | | [id number]). Professional interpretation was performed by [facility] | | | [employer], [facility] [address] ., [address], [place] [address] | | | (Conversion Developer: Evan Frausto M.D.; CLIA#: [id number]). | | | Diagnostician: Rafael Bales MD [...]
--- OUTSIDE RECORDS SUMMARY | ~2019-11-12 | XMS | Encounter Summary ---
Demographics + + + | Address | [address] | | | [place] [address] | + + + | Home Phone [...] + +------+ + | Care Sales Representative Uniforms Name | Role | Phone | + +------+ + PCP | Unavailable | + +------+ + Encounter Details +--------+ + + + + | Date | Type | Department | Care Team | Description | +--------+ + + + + | 02/28/ | [facility] | [facility] | Geri Angel, | | | 2011 | Encounter | MED CTR XRAY [address] | CHILDCARE DIRECTOR [address] | | | | | [place] | St [place] | | | | | [place] [address] | [address] | | | | | [phone] | | | +--------+ + + + [...] | 2019 | Monitor | | [address] | Interrogation | | | | | [place], | (Primary Dx); | | | | | [place] [address] | Presence of | | | | | [phone] | permanent cardiac | | | | [...] W | | | | | | [place], | | | | | | [place] [address] | | | | | | [phone] | | | | | | | [...] + | [facility] Diagnostic Imaging Department | [place] | | [address] [facility] | [facility] | | LEFT HEART CATHETERIZATION | DIAG [...] was taken to | | | Cardiac Grip Wrapper. He was prepared and draped in the usual fashion | | | under a sterile technique and local anesthesia, percutaneous access | | | was obtained using #6- Guinean sheath in the right femoral artery. | | | Right heart cath was not performed in this patient. Left | | | ventriculography was performed using #6-Guinean pigtail catheter. | | | The selective coronary angiography were then performed in several | | | sagittal and oblique projection using the 6-Guinean JL 4 and #6 Guinean | | | 3DRC diagnostic catheters. The [...] Transcribed | | | Date/Time: 02/29/2012 09:09 Assurance Auditor: | | | <Electronically Signed by Daljit Singletary MD [facility]> 02/29/12 | | | 1002 | | + + + + + | Procedure Note | + + | Kevin, Rad Conversion - 12/29/2013 5:04 PM [facility] | | Diagnostic Imaging Department | | [address] [place] [place] | | | | | | [...] patient was taken to Cardiac | | Grip Wrapper. He was prepared and draped in the usual fashion under a sterile | | technique and local anesthesia, percutaneous access was obtained using #6- | | Guinean sheath in the right femoral artery. Right heart cath was not performed | | in this patient. Left ventriculography was performed using #6-Guinean pigtail | | catheter. The selective coronary angiography were then performed in several | | sagittal and oblique projection using the 6-Guinean JL 4 and #6 Guinean 3DRC | | diagnostic catheters. The patient [...] | Transcribed Date/Time: 02/29/2012 09:09 | | Assurance Auditor: | | <Electronically Signed by Daljit Singletary MD [facility]> 02/29/12 1002 | + + [...]
--- OUTSIDE RECORDS SUMMARY | ~2019-11-12 | XMS | Encounter Summary ---
Demographics + + + | Address | [address] | | | [place] [address] | + + + | Home Phone [...] Team Providers + +------+ + | Care Fbi Investigator Name | Role | Phone | [...] [address] | | | | | [place], | [place], | | | | | [place] [address] | [place] [address] | | | | | [phone] | [phone] | | | | | | | [...] | Monitor | | [address] [place] | Interrogation | | | | | [place], | (Primary Dx); | | | | | [place] [address] | Presence of | | | | | [phone] | permanent cardiac | | | | [...] | | | | | | [place], | | | | | | [place] [address] | | | | | | [phone] | | | | | | | [...]
--- OUTSIDE RECORDS SUMMARY | ~2019-11-12 | XMS | Encounter Summary ---
Demographics + + + | Address | [address] | | | [place] [address] | + + + | Home Phone [...] + + | 06/06/ | Office | [facility] | Silvia, | Essential | | 2019 | Visit | CARDIOLOGY [address] | PARISA [place] [address] | hypertension | | | | [place], | [place], | (Primary Dx); | | | | [place] [address] | [place] [address] | Sinoatrial node | | | | [phone] | [phone] | dysfunction (HCC) | | | | | | with symptomatic | | | | | | bradycardia; | | | | | | Symptomatic PVCs; | | | | | | Tachycardia; | | | | | | Coronary artery | | | | | | disease involving | | | | | | [place] coronary | | | | | | artery of [place] | | | | | | [...] encounter Patient Instructions Patient Instructions Julia Allen, Elastic Attacher Chainstitch - 06/06/2019 2:15 PM PDT1. Take a [...] of -critical coronary artery dise ase involving [place] coronary artery of [place] heart without angina pectoris, essential hype [...] was seen in the emergency department at [facility] in [place] due to chest pain, no medication changes at that time. On 06/02/2019 he was seen here in the [facility] department with chest pain, irregular heart [...] Preventative health care Coronary artery disease involving [place] coronary artery of [place] heart without angina pectoris Cannabis abuse, [...] 3RD DOSE, CALL 911 100 tablet 3 [place]-3 Fatty Acids (SALMON OIL-1000 PO) CAPS, one capsule by mouth daily twice daily ondansetron (ZOFRAN ODT) 4 mg disintegrating tablet Take 4 mg by mouth every 8 hours as needed for Nausea. ONE TOUCH DELICA LANCETS [facility] [...] BNP 48 06/02/2019 I reviewed records from [facility] for emergency department visit o n 06/02/2019 which is summarized in the HPI. RESULTS- I reviewed reports from [facility]: Ct Abdomen Pelvis W Contrast Result Date: [...] ASSESSMENT: 1. Non-critical Coronary artery disease involving [place] coronary artery of [place] heart [facility] angina pectoris: A.Normal exercise sestamibi [...] performed by Dr Juan Diego Gambino at [facility] on 01/30/2013.Patient had spontaneous PVC'sfr om [...] to go back in 3 days to [place] for an attempt of ablation under general [...] a normal stable device function. Estimated remaining [facility] taylor longevity is 3.5 years. [...] visit, or sooner with concerns. Julia Clemente, Elastic Attacher Chainstitch am acting as a scribe on behalf of, and in the presenc e of PARISA Lomas. - Reji Church 06/06/2019 15:10 Janeen Clemente ARNP, personally performed the services described in this documentati on, as scribed in my presence and it is both accurate and complete. -PARISA Lomas 06/06/2019 Portions of this chart may have been created with [employer] voice recognition software. Occasi onal wrong-word or [...] Interrogation | | | | | [place], | (Primary Dx); | | | | | [place] [address] | Presence of | | | | | [phone] | permanent cardiac | | | | [...] | | | | | | [place] [address] | | | | | | [phone] | | | | | | | [...] MD | | | | | | ([id number]) on 06/06/2019 | | | | | [...] | Coronary artery disease involving [place] coronary artery of [place] heart without | | angina pectoris | + + | Syncope, unspecified syncope type | + + | Ascending thoracic aortic aneurysm (HCC) Thoracic aneurysm without mention of rupture | + + | Hyperlipidemia, mixed Mixed hyperlipidemia | + + documented in this encounter
--- OUTSIDE RECORDS SUMMARY | ~2019-11-12 | XMS | Encounter Summary ---
Demographics + + + | Address | [address] | | | [place] [address] | + + + | Home Phone [...] Providers + +------+ + | Care Retirement Manager Name | Role | Phone | [...] Refill | | 2013 | | [facility] [place] | DO [address] | | | | | [address] | [place] | | | | | [place] | [address] | | | | | [address] | | | | | | [phone] | | | +--------+--------+ + + + [...] | 2018 | Monitor | | [address] [place] | Interrogation | | | | | [place], | (Primary Dx); | | | | | [place] [address] | Presence of | | | | | [phone] | permanent cardiac | | | | [...] | | | | | | [place] [address] | | | | | | [phone] | | | | | | | | +--------+ + + + + documented as of this encounter Visit Diagnoses Not on filedocumented in this encounter"
--- OUTSIDE RECORDS SUMMARY | ~2019-11-12 | XMS | Encounter Summary ---
Demographics + + + | Address | [address] | | | [place] [address] | + + + | Home Phone [...] Team Providers + +------+ + | Care Japanese Professor Name | Role | Phone | [...] + + | 12/23/ | Telephone | [facility] | Emmanuel Daniel MD | Other (Needs to know | | 2017 | | GASTROENTEROLOGY | [address], [place] | what he can eat | | | | [address] [place] | [address] [place], [place] | today) | | | | [address] [place], [place] | [address] | | | | | [address] | | | | | | [phone] | | | +--------+ + + + [...] | | | | | [address] [place], | (Primary Dx); | | | | | [place] [address] | Presence of | | | | | [phone] | permanent cardiac | | | | | | pacemaker; | | | | | | Sinoatrial node | | | | | | dysfunction (HCC) | | | | | | with symptomatic | | | | | | bradycardia | +--------+ + + + + | 01/01/ | Office | Cardiology | [place], | | | 2020 | Visit | | PARISA [place] [address] | | | | | | [place], | | | | | | [place] [address] | | | | | | [phone] | | | | | | | | +--------+ + + + + documented as of this encounter Visit Diagnoses Not on filedocumented in this encounter"
--- OUTSIDE RECORDS SUMMARY | ~2019-11-12 | XMS | Encounter Summary ---
Demographics + + + | Address | [address] | | | [place] [address] | + + + | Home Phone [...] Team Providers + +------+ + | Care Dial Brusher Name | Role | Phone | + [...] + + | 06/26/ | Office | [facility] | Geri Angel, | Coronary artery | | 2015 | Visit | CARDIOLOGY [address] | R[place] P[place]OT [address] | disease involving | | | | [place], | [place] [facility], [place] | [place] coronary | | | | [place] [address] | [address] | artery without | | | | [phone] | | angina pectoris | | | [...] it. He is planning to travel to [facility] in the [place] near future for up to a month due to his [id number] having a significant stroke there MEDICAL, SURGICAL, [...] Coronary artery disease involving [place] coronary artery without angina pectoris Cannabis abuse, [...] 3rd dose, call 911 25 tablet 11 [place]-3 Fatty Acids (SALMON OIL-1000 PO) CAPS, [...] Daily. to reduce urinary frequenc y Lot #[id number], exp 07/2016 21 capsule 0 Specialty Vitamins [...] INTERROGATION REVIEWED BY: PARISA Velazquez DEVICE IDENTIFICATION: Manager English: [email or web address]. Leads: Right atrium and right ventricle (dual [...] ventricular arrhythmia performed by Dr. Gambino at [facility] on 01/30/2013. Patient had spontaneous [...] to go back in 3 days to [place] for an attempt of ablation under general [...] this chart may have been created with [employer] voice recognition software. Occasi onal wrong-word or [...] | 2018 | Monitor | | [address] | Interrogation | | | | | [place], | (Primary Dx); | | | | | [place] [address] | Presence of | | | | | [phone] | permanent cardiac | | | | [...] W | | | | | | [place], | | | | | | [place] [address] | | | | | | [phone] | | | | | | | [...] PARISA Velazquez DEVICE IDENTIFICATION: | | | Manager English: [employer]. Leads: Right atrium and right | | [...] Coronary artery disease involving [place] coronary artery without angina pectoris - | | Primary | + + | SINUS BRADYCARDIA Sinoatrial node dysfunction | + + | Essential hypertension Unspecified essential hypertension | + + | Hyperlipidemia Other and unspecified hyperlipidemia | + + | Symptomatic PVCs Other premature beats | + + documented in this encounter
--- OUTSIDE RECORDS SUMMARY | ~2019-11-12 | XMS | Encounter Summary ---
Demographics + + + | Address | [address] | | | [place] [address] | + + + | Home Phone [...] Team Providers + +------+ + | Care Hangersmith Name | Role | Phone | + [...] [address] | | | | | [place], | [place], | | | | | [place] [address] | [place] [address] | | | | | [phone] | [phone] | | | | | | | [...] | 2018 | Monitor | | [address] [place] | Interrogation | | | | | [place], | (Primary Dx); | | | | | [place] [address] | Presence of | | | | | [phone] | permanent cardiac | | | | [...] W | | | | | | [place], | | | | | | [place] [address] | | | | | | [phone] | | | | | | | [...] Comment | + + | [facility] | + + + +---------+ + + [...] Resulting Agency Comment | + + | [facility] | + + + +---------+ + + [...] Comment | + + | [facility] | + + + +---------+ + + [...] Resulting Agency Comment | + + | [facility] | + + + [...] Resulting Agency Comment | + + | [facility] | + + + +---------+ + + [...] Resulting Agency Comment | + + | [facility] | + + + +---------+ + + [...] Resulting Agency Comment | + + | [facility] | + + + +---------+ + + [...] Resulting Agency Comment | + + | [facility] | + + + +---------+ [...] Resulting Agency Comment | + + | [facility] | + + + +---------+ + + [...] Resulting Agency Comment | + + | [facility] | + + + +---------+ + + [...] Comment | + + | [facility] | + + + +---------+ + + [...] Resulting Agency Comment | + + | [facility] | + + + +---------+ + + [...] Resulting Agency Comment | + + | [facility] | + + + +---------+ + + [...] Resulting Agency Comment | + + | [facility] | + + + +---------+ + + [...] Resulting Agency Comment | + + | [facility] | + + + +---------+ [...] Resulting Agency Comment | + + | [facility] | + + + +---------+ + + [...] Resulting Agency Comment | + + | [facility] | + + + +---------+ + + [...] Resulting Agency Comment | + + | [facility] | + + + +---------+ [...] Resulting Agency Comment | + + | [facility] | + + [...]
--- OUTSIDE RECORDS SUMMARY | ~2019-11-12 | XMS | Encounter Summary ---
Demographics + + + | Address | [address] | | | [place] [address] | + + + | Home Phone [...] Providers + +------+ + | Care Stock Preparer Name | Role | Phone | [...] 2016 | | CARDIOLOGY [address] | BUILDER BEAM [address] [place] | | | | | [place], | [place], [place] | | | | | [place] [address] | [address] | | | | | [phone] | | | +--------+--------+ + + + [...] Dx); | | | | | [place] [address] | Presence of | | | | | [phone] | permanent cardiac | | | | [...] | | | | | | [place] [address] | | | | | | [phone] | | | | | | | | +--------+ + + + + documented as of this encounter Visit Diagnoses Not on filedocumented in this encounter"
--- OUTSIDE RECORDS SUMMARY | ~2019-11-12 | XMS | Encounter Summary ---
Demographics + + + | Address | [address] | | | [place] [address] | + + + | Home Phone [...] Providers + +------+ + | Care Card Game Operator Name | Role | Phone | + +------+ + PCP | Unavailable | + +------+ + Encounter Details +--------+ + + + + | Date | Type | Department | Care Team | Description | +--------+ + + + + | 06/12/ | [facility] | [facility] | Hunter Antunez, | | | 2007 - | Encounter | MED CTR ICU [address] | MD [address] | | | | | [place], | [place] | | | 06/15/ | | [place] [address] | [address] | | | 2007 | | [phone] | | | +--------+ + + + [...] Interrogation | | | | | [place], | (Primary Dx); | | | | | [place] [address] | Presence of | | | | | [phone] | permanent cardiac | | | | [...] W | | | | | | [place], | | | | | | [place] [address] | | | | | | [phone] | | | | | | | | +--------+ + + + + documented as of this encounter Visit Diagnoses Not on filedocumented in this encounter"
--- OUTSIDE RECORDS SUMMARY | ~2019-11-12 | XMS | Encounter Summary ---
Demographics + + + | Address | [address] | | | [place] [address] | + + + | Home Phone [...] Providers + +------+ + | Care Ruling Machine Feeder Name | Role | Phone [...] | | GASTROENTEROLOGY | [address] [place], [place] | | | | | [address] [place] | [address] [place], [place] | | | | | [address] [place], [place] | [address] | | | | | [address] | | | | | | [phone] | | | +--------+ + + + [...] Dx); | | | | | [place] [address] | Presence of | | | | | [phone] | permanent cardiac | | | | [...] | 2020 | Visit | | Janeen, VEHICLE DAMAGE APPRAISER [address] | | | | | | [place], | | | | | | [place] [address] | | | | | | [phone] | | | | | | | | +--------+ + + + + documented as of this encounter Visit Diagnoses Not on filedocumented in this encounter"
--- OUTSIDE RECORDS SUMMARY | ~2019-11-12 | XMS | Encounter Summary ---
Demographics + + + | Address | [address] | | | [place] [address] | + + + | Home Phone [...] Providers + +------+ + | Care Technology Auditor Name | Role | Phone | [...] + + | 08/23/ | Telephone | [facility] | AnshujohnsoncherelleDaljit, | Other (edema is | | 2015 | | CARDIOLOGY [address] | MD [address] | blood clots) | | | | [place], | [place], | | | | | [place] [address] | [place] [address] | | | | | [phone] | [phone] | | | | | | | [...] Dx); | | | | | [place] [address] | Presence of | | | | | [phone] | permanent cardiac | | | | [...] | | | | | | [place] [address] | | | | | | [phone] | | | | | | | | +--------+ + + + + documented as of this encounter Visit Diagnoses Not on filedocumented in this encounter"
--- OUTSIDE RECORDS SUMMARY | ~2019-11-12 | XMS | Encounter Summary ---
Demographics + + + | Address | [address] | | | [place] [address] | + + + | Home Phone [...] Providers + +------+ + | Care Manager Energy Name | Role | Phone | + [...] [address] | | | | | | [place], [place] | (Fax) | | | | | [address] | | | | | | [phone] | | | +--------+ + + + [...] 2019 | Monitor | | [address] | Interrogation | | | | | [place], | (Primary Dx); | | | | | [place] [address] | Presence of | | | | | [phone] | permanent cardiac | | | | [...] | | | | | | [place] [address] | | | | | | [phone] | | | | | | | | +--------+ + + + + documented as of this encounter Visit Diagnoses Not on filedocumented in this encounter"
--- OUTSIDE RECORDS SUMMARY | ~2019-11-12 | XMS | Encounter Summary ---
Demographics + + + | Address | [address] | | | [place] [address] | + + + | Home Phone [...] Team Providers + +------+ + | Care Mining Plant Operator Name | Role | Phone | + +------+ + PCP | Unavailable | + +------+ + Encounter Details +--------+ + + + + | Date | Type | Department | Care Team | Description | +--------+ + + + + | 11/12/ | Hospital | [facility] | | | | 1994 | Encounter | MED CTR GENERIC OP | | | | | | CONV DEPT [address] | | | | | | [place], | | | | | | [place] [address] | | | | | | [phone] | | | +--------+ + + + [...] Dx); | | | | | [place] [address] | Presence of | | | | | [phone] | permanent cardiac | | | | [...] | | | | | [place], | | | | | | [place] [address] | | | | | | [phone] | | | | | | | | +--------+ + + + + documented as of this encounter Visit Diagnoses Not on filedocumented in this encounter"
--- OUTSIDE RECORDS SUMMARY | ~2019-11-12 | XMS | Encounter Summary ---
Demographics + + + | Address | [address] | | | [place] [address] | + + + | Home Phone [...] + + + + | 08/17/ | [facility] | [facility] | Evan Gandara MD | | | 2005 | Encounter | MED CTR LABORATORY | [address] [facility] | | | | | [address] | [place] | | | | | [place] | [address] | | | | | [address] | | | | | | [phone] | | | +--------+ + + + [...] Dx); | | | | | [place] [address] | Presence of | | | | | [phone] | permanent cardiac | | | | [...] W | | | | | | [place], | | | | | | [place] [address] | | | | | | [phone] | | | | | | | | +--------+ + + + + documented as of this encounter Visit Diagnoses Not on filedocumented in this encounter"
--- OUTSIDE RECORDS SUMMARY | ~2019-11-12 | XMS | Encounter Summary ---
Demographics + + + | Address | [address] | | | [place] [address] | + + + | Home Phone [...] Providers + +------+ + | Care Manager Story Name | Role | Phone | + [...] Show | | 2012 | | [facility] [place] | DO [address] | | | | | [address] | [place] | | | | | [place] | [address] | | | | | [address] | | | | | | [phone] | | | +--------+ + + + [...] | 2018 | Monitor | | [address] [place] | Interrogation | | | | | [place], | (Primary Dx); | | | | | [place] [address] | Presence of | | | | | [phone] | permanent cardiac | | | | [...] W | | | | | | [place], | | | | | | [place] [address] | | | | | | [phone] | | | | | | | | +--------+ + + + + documented as of this encounter Visit Diagnoses Not on filedocumented in this encounter"
--- OUTSIDE RECORDS SUMMARY | ~2019-11-12 | XMS | Encounter Summary ---
Demographics + + + | Address | [address] | | | [place] [address] | + + + | Home Phone [...] Providers + +------+ + | Care Warehouse Consultant Name | Role | Phone | + +------+ + | Kirk French MD | PCP | | + +------+ + Encounter Details +--------+ + + + + | Date | Type | Department | Care Team | Description | +--------+ + + + + | 01/07/ | Hospital | [facility] | Conversion | | | 2017 | Encounter | [facility] | Transaction, | | | | | ULTRASOUND [address] | Provider Unknown | | | | | [address] [facility] [address] | [phone] | | | | | [place] | | | | | | [address] | Kirk French | | | | | [phone] | MD Eva Guidry | | | | | | [address] [place], | | | | | | [place] [address] | | | | | | [phone] | | | | | | | [...] + + + +---------+ + + | [place]-3 Fatty | CAPS, one capsule by | [...] Dx); | | | | | [place] [address] | Presence of | | | | | [phone] | permanent cardiac | | | | [...] | | | | | | [place] [address] | | | | | | [phone] | | | | | | | | +--------+ + + + + documented as of this encounter Visit Diagnoses Not on filedocumented in this encounter"
--- OUTSIDE RECORDS SUMMARY | ~2019-11-12 | XMS | Encounter Summary ---
Demographics + + + | Address | [address] | | | [place] [address] | + + + | Home Phone [...] Providers + +------+ + | Care Cargo Tank Mechanic Name | Role | Phone | [...] | 03/02/ | Telephone | [facility] | Daljit Singletary, | Other | | 2013 | | CARDIOLOGY [address] | MD [address] | | | | | [place], | [place], | | | | | [place] [address] | [place] [address] | | | | | [phone] | [phone] | | | | | | | [...] Dx); | | | | | [place] [address] | Presence of | | | | | [phone] | permanent cardiac | | | | [...] | | | | | | [place] [address] | | | | | | [phone] | | | | | | | | +--------+ + + + + documented as of this encounter Visit Diagnoses Not on filedocumented in this encounter"
--- OUTSIDE RECORDS SUMMARY | ~2019-11-12 | XMS | Encounter Summary ---
Demographics + + + | Address | [address] | | | [place] [address] | + + + | Home Phone [...] + +------+ + | Care On Air Announcer Name | Role | Phone | [...] | | | | CENTER [address] | [address] [place] | | | | | [place], [place] | [place] [address] | | | | | [address] | [phone] | | | | | [phone] | | | +--------+ + + + [...] sent through Care Everywhere.Diarrhea, Unkno wn Cause (Turkmen)documented in this encounter Medications at Time [...] + + + +---------+ + + | [place]-3 Fatty | CAPS, one capsule by | [...] | | | | | | | wilton coronary | | | | | | | artery of wilton | | | | | | | [...] | 2018 | Monitor | | [address] | Interrogation | | | | | [place], | (Primary Dx); | | | | | [place] [address] | Presence of | | | | | [phone] | permanent cardiac | | | | [...] W | | | | | | [place], | | | | | | [place] [address] | | | | | | [phone] | | | | | | | [...] W?MRN: | | | | | | [id number] | | | [id number] | | | riteri | | | [...] | | | St. | | | [place] | | | y | | | [...] | | | St. | | | [place] | | | y | | | [...] | | | St. | | | [place] | | | y H. | | [...] | | | St. | | | [place] | | | y H. | | [...] | | M.D. | | | Dowel Setting Machine Operator | | | al | [...] | | | ent/60 | | | [id number] | | | -[id number] | | | [...] [address] | [place] | [phone] | | [facility] | | [address] | | | - LABORATORY | | [...] [address] | [place] | [phone] | | [facility] | | [address] | | | - LABORATORY | | [...] [facility] | | | | | | [facility] | | | | | | MEDICAL | | | | | | [place] - | | | | | | LABORATORY | | + +-------+ + + + + + | Specimen | + + | Blood | + + + + + + + | Performing | Address | City/State/Zipcode | Phone Number | | Organization | | | | + + + + + | [facility] | [address] | [place] | [phone] | | [facility] | | [address] | | | - LABORATORY | | [...] + | [facility] | [address] | [place] | [phone] | | [facility] | | [address] | | | - LABORATORY | | [...] [address] | [place] | [phone] | | [facility] | | [address] | | | - LABORATORY | | [...] 10 | 9 - 23 mg/dL | [facility] | | | | | | [place] | | | | | | MEDICAL | | | | | | CENTER - | | | | | | LABORATORY | | + + + + + + | Creatinine | 0.96 | 0.70 - 1.30 | [facility] | | | | | mg/dL | [facility] | | | | | | MEDICAL | | | | | | CENTER - | | | | | | LABORATORY | | + + + + + + | eGFR if not | >60Comment: GLOMERULAR | >=60 | [facility] | | | | FILTRATION | mL/min/1.73m2 | [place] | | | NIUEAN | RATE,ESTIMATED | | MEDICAL | | | | mL/min/1.45r2Mgep than | | CENTER - | | [...] [address] | [place] | [phone] | | [facility] | | [address] | | | - [...] | nRBC | | K/uL | [facility] | [...] [address] | [place] | [phone] | | [facility] | | [address] | | | - LABORATORY | | [...] | | | | | | [facility] | | | | | | MEDICAL [...] - 1.030 | [facility] | | | [place] | | | [facility] | | [...] [address] | [place] | [phone] | | [facility] | | [address] | | | - LABORATORY | | [...]
--- OUTSIDE RECORDS SUMMARY | ~2019-11-12 | XMS | Encounter Summary ---
Demographics + + + | Address | [address] | | | [place] [address] | + + + | Home Phone [...] Team Providers + +------+ + | Care Ruffler Name | Role | Phone | + [...] 07/01/ | Telephone | [facility] | Daljit Singletary, | Other (EKG) | | 2017 | | CARDIOLOGY [address] | MD [address] [place] | | | | | [place], | [place], | | | | | [place] [address] | [place] [address] | | | | | [phone] | [phone] | | | | | | | [...] Dx); | | | | | [place] [address] | Presence of | | | | | [phone] | permanent cardiac | | | | [...] | | | | | | [place] [address] | | | | | | [phone] | | | | | | | | +--------+ + + + + documented as of this encounter Visit Diagnoses Not on filedocumented in this encounter"
--- OUTSIDE RECORDS SUMMARY | ~2019-11-12 | XMS | Encounter Summary ---
Demographics + + + | Address | [address] | | | [place] [address] | + + + | Home Phone [...] Refill | | 2012 | | [facility] [place] | DO [address] | | | | | [address] | [place] | | | | | [place] | [address] | | | | | [address] | | | | | | [phone] | | | +--------+--------+ + + + [...] | 2018 | Monitor | | [address] [place] | Interrogation | | | | | [place], | (Primary Dx); | | | | | [place] [address] | Presence of | | | | | [phone] | permanent cardiac | | | | [...] | | | | | | [place] [address] | | | | | | [phone] | | | | | | | | +--------+ + + + + documented as of this encounter Visit Diagnoses Not on filedocumented in this encounter"
--- OUTSIDE RECORDS SUMMARY | ~2019-11-12 | XMS | Encounter Summary ---
Demographics + + + | Address | [address] | | | [place] [address] | + + + | Home Phone [...] Providers + +------+ + | Care Group Burner Machine Name | Role | Phone | [...] [address] | | | | | | [place], [place] | (Fax) | | | | | [address] | | | | | | [phone] | | | +--------+ + + + [...] 2019 | Monitor | | [address] | Interrogation | | | | | [place], | (Primary Dx); | | | | | [place] [address] | Presence of | | | | | [phone] | permanent cardiac | | | | [...] | | | | | | [place] [address] | | | | | | [phone] | | | | | | | | +--------+ + + + + documented as of this encounter Visit Diagnoses Not on filedocumented in this encounter"
--- OUTSIDE RECORDS SUMMARY | ~2019-11-12 | XMS | Encounter Summary ---
Demographics + + + | Address | [address] | | | [place] [address] | + + + | Home Phone [...] Providers + +------+ + | Care Delivery Crew Member Name | Role | Phone [...] Provider Unknown | | | | | [place], [place] | [phone] | | | | | [address] | | | | | | [phone] | | | +--------+ + + + [...] | | | | | | | #[id number], exp 07/2016 | | | | | [...] Interrogation | | | | | [facility] | (Primary Dx); | | | | | [place] [address] | Presence of | | | | | [phone] | permanent cardiac | | | | [...] | | | | | | [place], | | | | | | [place] [address] | | | | | | [phone] | | | | | | | [...]
--- OUTSIDE RECORDS SUMMARY | ~2019-11-12 | XMS | Encounter Summary ---
Demographics + + + | Address | [address] | | | [place] [address] | + + + | Home Phone [...] Providers + +------+ + | Care Director Alumni Relations Name | Role | Phone | [...] + + | 10/23/ | Office | [facility] | Silvia, | CAD (coronary artery | | 2013 | Visit | CARDIOLOGY [address] | [place] [address] | disease) (Primary | | | | [facility] [place], | [facility] [place], | Dx); Other chest | | | | [place] [address] | [place] [address] | pain; Chest pain; | | | | [phone] | [phone] | Coronary artery | | | | [...] Date: October 23, 2014 : 1960 Line Department Supervisor: Kailey Pruitt RN Device Turret Punch Press Operator: AfterSteps Sense (mV) Impedance (?) Capture (V) Capture (ms) A Lead 2.80-4.00 407 1.500 0.09 RV Lead 22.40-31.36 519 2.000 0.09 LV Lead Battery Impedance (?): 658 Battery Voltage (V): 2.79 NV Interval (ms): 155 AR Interval (ms): 240 VA Conduction: Mode Switch Events: 1 % of time: <0.1 -METAL TESTER: <0.1% AP-METAL TESTER: <0.1% -VS: 13.8% AP-VS: 86.1% METAL TESTER: Magnetic Rate: 85 LINDA: 65 LEAH: [...] Kailey Pruitt RN 10/23/2014 15:22 ames Janeen, HARD TILE SETTER - 10/23/2014 2:22 PM PST PATIENT NAME: [...] completely be ruled out. [facility] 12/25/13, shows non critical coronary artery disease, [...] He is i n class I-II of [place] 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 There [...] go back in 3 days to [place] for an attempt of ablation under general [...] dizziness. He is in class I-II of [place] 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 There are n [...] this chart may have been created with [employer] voice recognition software. Occasi onal wrong-word or sound-alike substitutions may have occurred due to the inherent rganger itations of voice recognition software. Please read [...] | Monitor | | [address] [facility] | Interrogation | | | | | [place], | (Primary Dx); | | | | | [place] [address] | Presence of | | | | | [phone] | permanent cardiac | | | | [...] | | | | | | [facility] [place], | | | | | | [place] [address] | | | | | | [phone] | | | | | | | [...] 2014 : | | | 1960 Line Department Supervisor: Kailey Pruitt RN Device Turret Punch Press Operator: | | | Medtronic Sense (mV) Impedance (?) Capture (V) Capture (ms) A | | | Lead 2.80-4.00 407 1.500 0.09 RV Lead 22.40-31.36 519 2.000 0.09 | | | LV Lead Battery Impedance (?): 658 Battery Voltage (V): 2.79 | | | NV Interval (ms): 155 AR Interval (ms): 240 VA Conduction: Mode | | | Switch Events: 1 % of time: <0.1 -METAL TESTER: <0.1% AP-METAL TESTER: <0.1% -VS: | | | 13.8% AP-VS: 86.1% METAL TESTER: Magnetic Rate: 85 LINDA: 65 LEAH: [...] | Date: October 23, 2014DOB: 1960 Line Department Supervisor: Chikis Saule Turret Punch Press Operator: | | Medtronic Sense (mV) Impedance (?) Capture (V) Capture (ms) A Lead 2.80-4.00 407 1.500 | | 0.09 RV Lead 22.40-31.36 519 2.000 0.09 LV Lead Battery Impedance (?): 658 Battery | | Voltage (V): 2.79 NV Interval (ms): 155 AR Interval (ms): 240 VA Conduction: Mode | | Switch Events: 1 % of time: <0.1 -METAL TESTER: <0.1% AP-METAL TESTER: <0.1% -VS: 13.8% AP-VS: 86.1% METAL TESTER: | | Magnetic Rate: 85 LINDA: [...] of unspecified type | | of vessel, [place] or graft | + + | Other chest pain | + + | Chest pain Chest pain, unspecified | + + | Coronary artery disease Coronary atherosclerosis of unspecified type of vessel, | | [place] or graft | + + | Pacemaker [...]
--- OUTSIDE RECORDS SUMMARY | ~2019-11-12 | XMS | Encounter Summary ---
Demographics + + + | Address | [address] | | | [place] [address] | + + + | Home Phone [...] Providers + +------+ + | Care Surgical Services Manager Name | Role | Phone [...] | | | DDD | Scotty C, DERRICK BOAT OPERATOR | [facility] | | | | | (degenerativ | [address] [facility] | | | | | e disc | [facility] | MEDICAL | | | | | disease), | [address] | CENTER [address] | | | | | lumbar | B | [place] | | | | | Chronic | [place], [place] | [place], | | | | | left-sided | [address] | [place] [address] | | | | | low back | Phone: | Phone: | | | | | pain with | [phone] | [phone] | | | | | left-sided | Fax: | Fax: | | | | | sciatica | [phone] | [phone] | | | | | History of [...] | | | DDD | Scotty C, DERRICK BOAT OPERATOR | [address] [place] | | | | | (degenerativ | [address] | [place], | | | | | e disc | [place] | [place] [address] | | | | | disease), | [address]IVE [address] | Phone: | | | | | lumbar | B | [phone] | | | | | Chronic | [place], [place] | Fax: | | | | | left-sided | [address] | [phone] | | | | | low back | Phone: | | | | | | pain with | [phone] | | | | | | left-sided | Fax: | | | | | | sciatica | [phone] | | | | | | History [...] + | 07/01/ | Hospital | [facility] | Scotty Galdamez, | DDD (degenerative | | 2018 | Encounter | MED CTR CT [address] | DERRICK BOAT OPERATOR [address] | disc disease), | | | | [place], | [address] | lumbar; Chronic | | | | [place] [address] | [place] [address] | left-sided low back | | | | [phone] | [phone] | pain with left-sided | | | [...] + + +---------+ + + | [place]-3 Fatty | CAPS, one capsule by | [...] Interrogation | | | | | [place], | (Primary Dx); | | | | | [place] [address] | Presence of | | | | | [phone] | permanent cardiac | | | | [...] | | | | | [place], | | | | | | [place] [address] | | | | | | [phone] | | | | | | | [...]
--- OUTSIDE RECORDS SUMMARY | ~2019-11-12 | XMS | Encounter Summary ---
Demographics + + + | Address | [address] | | | [place] [address] | + + + | Home Phone [...] Providers + +------+ + | Care Food Trades Assistants Name | Role | Phone | + +------+ + PCP | Unavailable | + +------+ + Encounter Details +--------+ + + + + | Date | Type | Department | Care Team | Description | +--------+ + + + + | 09/24/ | [facility] | [facility] | Evan Gandara MD | | | 2005 | Encounter | MED CTR XRAY [address] | [address] [facility] | | | | | [place] | [place] | | | | | [place] [address] | [id number] | | | | | [phone] | | | +--------+ + + + [...] Interrogation | | | | | [place], | (Primary Dx); | | | | | [place] [address] | Presence of | | | | | [phone] | permanent cardiac | | | | [...] | | | | | | [place] [address] | | | | | | [phone] | | | | | | | | +--------+ + + + + documented as of this encounter Visit Diagnoses Not on filedocumented in this encounter"
--- OUTSIDE RECORDS SUMMARY | ~2019-11-12 | XMS | Encounter Summary ---
Demographics + + + | Address | [address] | | | [place] [address] | + + + | Home Phone [...] Providers + +------+ + | Care Head Waitress Name | Role | Phone | + +------+ + PCP | Unavailable | + +------+ + Encounter Details +--------+ + + + + | Date | Type | Department | Care Team | Description | +--------+ + + + + | 01/15/ | [facility] | [facility] | Emmanuel Daniel MD | | | 1994 | Encounter | MED CTR GENERIC OP | [address] | | | | | CONV DEPT [address] | [address] [place] | | | | | [place], | [address] | | | | | [place] [address] | | | | | | [phone] | | | +--------+ + + + [...] | | | | [place] [address] | Presence of | | | | | [phone] | permanent cardiac | | | | [...] | | | | | | [place] [address] | | | | | | [phone] | | | | | | | | +--------+ + + + + documented as of this encounter Visit Diagnoses Not on filedocumented in this encounter"
--- OUTSIDE RECORDS SUMMARY | ~2019-11-12 | XMS | Encounter Summary ---
Demographics + + + | Address | [address] | | | [place] [address] | + + + | Home Phone [...] Providers + +------+ + | Care Bench Examiner Name | Role | Phone | [...] CTR XRAY [address] | [address] | | | | | [place] | [place], | | | | | [place] [address] | [place] [address] | | | | | [phone] | [phone] | | | | | | | [...] Dx); | | | | | [place] [address] | Presence of | | | | | [phone] | permanent cardiac | | | | [...] W | | | | | | [place], | | | | | | [place] [address] | | | | | | [phone] | | | | | | | [...] [facility] Diagnostic Imaging | [facility] | | Department [address] [place] [address] | [facility] | | [ rep ct [address]] [ rep [facility] | | st zip] Signed | - IMAGING | | | | | Patient Name: MOE GAY | | | Physician: MIGUELINA : 1960 Age: 53 Sex: M Unit | | | #: [id number] Exam Date: 12/25/13 Location: | | | SDS SDS-D Report #: [id number] Page: | | | %(RAD)RES..mtdd.print.filter("pg") of %(RAD) | | | RES..mtdd.print.filter("tpg") | | | | | | Accession Number: [id number] | | | LEFT HEART CATHETERIZATION, 12/25/2013 [...] the patient was taken to the cardiac label tacker. She | | | was prepared and draped in the usual fashion. Under sterile | | | technique and local anesthesia, percutaneous access was obtained | | | using #5 Gambian sheath in the right radial artery. Right heart cath | | | was not performed on this patient. Left ventriculography was | | | performed using #5 multipurpose diagnostic catheter. The selective | | | coronary angiography was then performed in several sagittal and | | | oblique projections using #5 multipurpose and #5 Gambian JL 3.5 | | | diagnostic catheters. [...] Transcribed | | | Date/Time: 12/25/2013 11:52 Structural Analysis Engineer: | | | <<Signature on File>> | | | Suwong | | | MD CLEOPATRA Singletary FASNanette12/25/13 1343 <Electronically signed by | | | Daljit Singletary MD, [facility], FAC, ADELINE, FASNC> Daljit | | | MD CLEOPATRA Signletary 12/25/13 1035 Structural Analysis Engineer: Yuppicsx | | | Dvsgzpfyusgsw86/03/14 1152 | | + + + + + + + + | Performing | Address | City/State/Zipcode | Phone Number | | Organization | | | | + + + + + | [facility] | [address] | [place] | [phone] | | [facility] | | [address] | | | - IMAGING | | | | + + + + + documented in this encounter Visit Diagnoses Not on filedocumented in this encounter
--- OUTSIDE RECORDS SUMMARY | ~2019-11-12 | XMS | Encounter Summary ---
Demographics + + + | Address | [address] | | | [place] [address] | + + + | Home Phone [...] Providers + +------+ + | Care Payroll Services Analyst Name | Role | Phone | + +------+ + PCP | Unavailable | + +------+ + Encounter Details +--------+ + + + + | Date | Type | Department | Care Team | Description | +--------+ + + + + | 09/12/ | Hospital | [facility] | | | | 1993 | Encounter | MED CTR EMERGENCY | | | | | | CENTER [address] | | | | | | [place] | | | | | | [address] | | | | | | [phone] | | | +--------+ + + + [...] Presence of | | | | | [phone] | permanent cardiac | | | | [...] | | | | | | [place], | | | | | | [place] [address] | | | | | | [phone] | | | | | | | | +--------+ + + + + documented as of this encounter Visit Diagnoses Not on filedocumented in this encounter"
--- OUTSIDE RECORDS SUMMARY | ~2019-11-12 | XMS | Encounter Summary ---
Demographics + + + | Address | [address] | | | [place] [address] | + + + | Home Phone [...] Providers + +------+ + | Care Truck Hop Name | Role | Phone | + +------+ + PCP | Unavailable | + +------+ + Encounter Details +--------+ + + + + | Date | Type | Department | Care Team | Description | +--------+ + + + + | 10/09/ | [facility] | [facility] | [place], | | | 2008 | Encounter | [facility] | Martell Cr MD [address] | | | | CENTER [address] | [place] | | | | | [place] | [place] [address] | | | | | [address] | [phone] | | | | | [phone] | | | +--------+ + + + [...] Dx); | | | | | [place] [address] | Presence of | | | | | [phone] | permanent cardiac | | | | [...] | | | | | | [place] [address] | | | | | | [phone] | | | | | | | | +--------+ + + + + documented as of this encounter Visit Diagnoses Not on filedocumented in this encounter"
--- OUTSIDE RECORDS SUMMARY | ~2019-11-12 | XMS | Encounter Summary ---
Demographics + + + | Address | [address] | | | [place] [address] | + + + | Home Phone [...] + +------+ + | Care Honing Machine Try Out Setter Name | Role | Phone | [...] | RN | | | | | [place], | | | | | | [place] [address] | | | | | | [phone] | | | +--------+ + + + [...] | 2019 | Monitor | | [address] | Interrogation | | | | | [place], | (Primary Dx); | | | | | [place] [address] | Presence of | | | | | [phone] | permanent cardiac | | | | [...] | | | | | | [place] [address] | | | | | | [phone] | | | | | | | | +--------+ + + + + documented as of this encounter Visit Diagnoses Not on filedocumented in this encounter"
--- OUTSIDE RECORDS SUMMARY | ~2019-11-12 | XMS | Encounter Summary ---
Demographics + + + | Address | [address] | | | [place] [address] | + + + | Home Phone [...] Providers + +------+ + | Care Food Prep Worker Name | Role | Phone | [...] | Palpitations | [address] | | | | | Procedures | [address] | [address] [place] | | | | | ECHO | [place], | [place], [place] | | | | | Complete | [place] [address] | [address] | | | | | | Phone: | Phone: | | | | | | [phone] | [phone] | | | | | | Fax: | Fax: | | | | | | [phone] | [phone] | +--------+--------+ + + + + Encounter Details +--------+ + + + + | Date | Type | Department | Care Team | Description | +--------+ + + + + | 12/30/ | Hospital | [facility] | TimmyshaistateshaShaistatimmy, | Palpitations | | 2012 - | Encounter | MED CTR XRAY [address] | MD [address] | | | | | [place] | [place], | | | 01/01/ | | [place] [address] | [place] [address] | | | 2012 | | [phone] | [phone] | | | | | | | [...] + + + +---------+ + + | [place]-3 Fatty | CAPS, one capsule by | [...] Dx); | | | | | [place] [address] | Presence of | | | | | [phone] | permanent cardiac | | | | [...] W | | | | | | [place], | | | | | | [place] [address] | | | | | | [phone] | | | | | | | [...] [facility] | [place] | | Department [address] [facility] | [facility] | | [ rep ct street[address]] [ rep ct [facility] | | st zip] Signed | - IMAGING | | | | | Patient Name: MOE GAY W | | | Physician: MIGUELINA : 1960 Age: 52 Sex: M Unit | | | #: [id number] Exam Date: 12/30/12 Location: | | | G Report #: [id number] Page: | | | %(RAD)RES..mtdd.print.filter("pg") of %(RAD) | | | RES..mtdd.print.filter("tpg") | | | | | | Accession Number: [id number] | | | E C H O C A R D I O G R A P H Y R E P O R T | | | HEIGHT: 76" WEIGHT: 270# | | | SPRINKLER TENDER: JAMEEL REFERRING DR: TIMMY DRAKE DR: | [...] | | Transcribed Date/Time: 12/30/2012 16:34 Senior Underwriting Assistant: | | | <<Signature on File>> | | | Daljit | | | MD CLEOPATRA Singletary FASE01/02/13 0955 <Electronically signed by | | | Daljit Singletary MD, [facility], FACP, FASE, FASNC> Rashadong | | | MD CLEOPATRA Singletary 12/30/12 1608 Senior Underwriting Assistant: [employer] | | | Karsdjscxvrjd49/08/13 1634 Daljit Singletary MD FACC | | | FASE | | + + + + + + + + | Performing | Address | City/State/Zipcode | Phone Number | | Organization | | | | + + + + + | [facility] | [address] | [place] | [phone] | | [facility] | | [address] | | | - IMAGING | | | | + + + + + documented in this encounter Visit Diagnoses + + | Diagnosis | + + | Palpitations | + + documented in this encounter
--- OUTSIDE RECORDS SUMMARY | ~2019-11-12 | XMS | Encounter Summary ---
Demographics + + + | Address | [address] | | | [place] [address] | + + + | Home Phone [...] Team Providers + +------+ + | Care Gripper Installer Name | Role | Phone | + +------+ + PCP | Unavailable | + +------+ + Encounter Details +--------+ + + + + | Date | Type | Department | Care Team | Description | +--------+ + + + + | 05/02/ | [facility] | [facility] | Jonathan, | | | 2009 | Encounter | MED CTR EMERGENCY | Martell Cr MD [address] | | | | | CENTER [address] | [place] | | | | | [place] | [place] [address] | | | | | [address] | [phone] | | | | | [phone] | | | +--------+ + + + [...] Presence of | | | | | [phone] | permanent cardiac | | | | [...] | | | | | | [place] [address] | | | | | | [phone] | | | | | | | | +--------+ + + + + documented as of this encounter Visit Diagnoses Not on filedocumented in this encounter"
--- OUTSIDE RECORDS SUMMARY | ~2019-11-12 | XMS | Encounter Summary ---
Demographics + + + | Address | [address] | | | [place] [address] | + + + | Home Phone [...] Team Providers + +------+ + | Care Buttoner Name | Role | Phone | + +------+ + | Michael Amanda DO | PCP | | + +------+ + Encounter Details +--------+ + + + + | Date | Type | Department | Care Team | Description | +--------+ + + + + | 04/03/ | Hospital | [facility] | Jay Gambino MD | | | 2012 - | Encounter | HEART MED CTR | [address] | | | | | CARDIAC TRANSPLANT | [address] [place] | | | 04/04/ | | [address] | [place] [address] | | | 2012 | | [place] | [phone] | | | | | [address] | | | | | | [phone] | | | +--------+ + + + [...] as of this encounter Discharge Summaries Dona Clmeente ARNP - 04/04/2013 9:05 AM PDT PATIENT NAME: MOE GAY Sex/Age: M / 53Y : 1960 ADMISSION DATE: 04/03/2013 DISCHARGE DATE: 04/04/2013 [id number] / [id number] ADMISSION DIAGNOSES: 1. Symptomatic premature ventricular contractions [...] study and ablati on. MOE GAY ADM:04/03/13 [id number] 04/04/13 [place] DISCHARGE SUMMARY [id number] [facility] PARISA Hughes [facility] MD Meena Pleitez THIS REPORT IS CONFIDENTIAL AND NOT TO BE RELEASED WITHOUT PROPER AUTHORIZATION. [facility] Mr. Gay was taken to the [...] 180 mg once daily. MOE GAY ADM:04/03/13 [id number] 04/04/13 [place] DISCHARGE SUMMARY [id number] [facility] PARISA Hughes [facility] MD Meena Pleitez THIS REPORT IS CONFIDENTIAL AND NOT TO BE RELEASED WITHOUT PROPER AUTHORIZATION. [facility] 5. Docusate sodium 2 tablets once daily. 6. Marinol 10 mg twice daily. 7. Metoprolol succinate 200 mg once daily. 8. Oxycodone 10 mg 10 mg oral as needed. 9. Oxycodone 30 mg oral twice daily. 10. Pravastatin 40 mg at bedtime. 11. Promethazine 25 mg as needed. 12. Ranitidine 1 to 2 tablets once daily. 13. [place] oil 2 tablets twice daily. 14. Valacyclovir 500 mg once daily. There were no new medications or medication dosage changes at time of discharge. PLAN: 1. Mr. Gay will be discharged home on medications as noted above, including his usual m edications of diltiazem and metoprolol. 2. He will be seen and followed by Dr. Gambino on 16 at 9:00 a.m. at [facility], [address]. 3. He will contact our office earlier than scheduled appointment should he have any diffic ulty prior to that time. PARISA Hughes MD A P RICHIE/med #[id number] cc: MD Dona Pleitez ARNP Suwong Wongsuwan, MD Electronically Signed 04/12/13 1400 PARISA Hughes Electronically Signed 05/22/13 1245 Jay Gambino MD MOE GAY ADM:04/03/13 [id number] 04/04/13 [place] DISCHARGE SUMMARY [id number] [facility] PARISA Hughes ES B [facility] Jay Gambino MD R THIS REPORT IS CONFIDENTIAL AND NOT TO BE RELEASED WITHOUT PROPER AUTHORIZATION.Electronica lly signed by Jael Brown at 05/22/2013 1:25 PM Dona Grossman ARNP - 04/04/2013 9:05 AM PDT PATIENT NAME: MOE GAY Sex/Age: M / 53Y : 1960 ADMISSION DATE: 04/03/2013 DISCHARGE DATE: 04/04/2013 [id number] / [id number] ADMISSION DIAGNOSES: 1. Symptomatic premature ventricular contractions [...] and ablati on. MOE GAY Jaimee ADM:04/03/13 [id number] 04/04/13 [place] DISCHARGE SUMMARY [id number] [facility] PARISA Hughes [facility] MD Meena Pleitez THIS REPORT IS CONFIDENTIAL AND NOT TO BE RELEASED WITHOUT PROPER AUTHORIZATION. [facility] Mr. Gay was taken to the [...] 180 mg once daily. MOE GAY ADM:04/03/13 [id number] 04/04/13 [place] DISCHARGE SUMMARY [id number] [facility] PARISA Hughes [facility] MD Meena Pleitez THIS REPORT IS CONFIDENTIAL AND NOT TO BE RELEASED WITHOUT PROPER AUTHORIZATION. [facility] 5. Docusate sodium 2 tablets once daily. 6. Marinol 10 mg twice daily. 7. Metoprolol succinate 200 mg once daily. 8. Oxycodone 10 mg 10 mg oral as needed. 9. Oxycodone 30 mg oral twice daily. 10. Pravastatin 40 mg at bedtime. 11. Promethazine 25 mg as needed. 12. Ranitidine 1 to 2 tablets once daily. 13. [place] oil 2 tablets twice daily. 14. Valacyclovir 500 mg once daily. There were no new medications or medication dosage changes at time of discharge. PLAN: 1. Mr. Gay will be discharged home on medications as noted above, including his usual m edications of diltiazem and metoprolol. 2. He will be seen and followed by Dr. Gambino on 16 at 9:00 a.m. at [facility], [address]. 3. He will contact our office earlier than scheduled appointment should he have any diffic ulty prior to that time. PARISA Hughes MD A P RICHIE/med #[id number] cc: MD Dona Pleitez ARNP Suwong Wongsuwan, MD Electronically Signed 04/12/13 1400 PARISA Hughes MOE GAY ADM:04/03/13 [id number] 04/04/13 [place] DISCHARGE SUMMARY [id number] [facility] PARISA Hughes [facility] MD Meena [...] + + + +---------+ + + | Goodman-3 Fatty | CAPS, one capsule by | [...] Dx); | | | | | [place] [address] | Presence of | | | | | [phone] | permanent cardiac | | | | [...] | | | | | | [place] [address] | | | | | | [phone] | | | | | | | [...] + + + | Glucose | 94Comment: Bahamian | 65 - 99 mg/dL | [facility] [...] | | | | failure.For | | [place] | | | | Americans, multiply the [...] + + | YESSY SACRED | [address] | [place] [address] | | | [facility] | [...] + + | YESSY JONES | [address] | [place] [address] | | | [facility] | | | | | LABORATORY | | | | + + + + + documented in this encounter Visit Diagnoses Not on filedocumented in this encounter"
--- OUTSIDE RECORDS SUMMARY | ~2019-11-12 | XMS | Encounter Summary ---
Demographics + + + | Address | [address] | | | [place] [address] | + + + | Home Phone [...] + +------+ + | Care Food Safety Coordinator Name | Role | Phone | + +------+ + | Kirk French MD | PCP | | + +------+ + Encounter Details +--------+ + + + + | Date | Type | Department | Care Team | Description | +--------+ + + + + | 12/23/ | Emergency | [facility] | Cristal Alexander, | Chronic neck pain; | | 2015 | | MEDICAL CENTER | DO [address] | Headache(784.0) | | | | EMERGENCY CENTER | [place] [address] | | | | | [address] | [phone] | | | | | [place], [place] | | | | | | [address] | | | | | | [phone] | | | +--------+ + + + [...] + + + +---------+ + + | Ranger-3 Fatty | CAPS, one capsule by | [...] | | | | | | | #[id number], exp 07/2016 | | | | | [...] Dx); | | | | | [place] [address] | Presence of | | | | | [phone] | permanent cardiac | | | | [...] | | | | | | [place], | | | | | | [place] [address] | | | | | | [phone] | | | | | | | [...] Conversion - 07/07/2019 5:05 AM PDT PINA [id number] years MaleCT | | CERVICAL SPINE WO [...]
--- OUTSIDE RECORDS SUMMARY | ~2019-11-12 | XMS | Encounter Summary ---
Demographics + + + | Address | [address] | | | [place] [address] | + + + | Home Phone [...] Providers + +------+ + | Care Testing And Regulating Chief Name | Role | Phone | [...] + | 03/24/ | Telephone | [facility] | [place], | Other (chest pain) | | 2018 | | CARDIOLOGY [address] | PARISA [place] [address] | | | | | [place], | [place], | | | | | [place] [address] | [place] [address] | | | | | [phone] | [phone] | | | | | | | [...] Dx); | | | | | [place] [address] | Presence of | | | | | [phone] | permanent cardiac | | | | [...] | 2020 | Visit | | Janeen, DAY CARE WORKER [address] | | | | | | [place], | | | | | | [place] [address] | | | | | | [phone] | | | | | | | | +--------+ + + + + documented as of this encounter Visit Diagnoses Not on filedocumented in this encounter"
--- OUTSIDE RECORDS SUMMARY | ~2019-11-12 | XMS | Encounter Summary ---
Demographics + + + | Address | [address] | | | [place] [address] | + + + | Home Phone [...] Providers + +------+ + | Care Mold Blower Name | Role | Phone | [...] | 09/30/ | Telephone | [facility] | Daljit Singletary, | Other (Danieljoao | | 2018 | | [place] [address] | [address] [place] | remote) | | | | [place], | [place], | | | | | [place] [address] | [place] [address] | | | | | [phone] | [phone] | | | | | | | [...] Dx); | | | | | [place] [address] | Presence of | | | | | [phone] | permanent cardiac | | | | [...] | | | | | | [place] [address] | | | | | | [phone] | | | | | | | | +--------+ + + + + documented as of this encounter Visit Diagnoses Not on filedocumented in this encounter"
--- OUTSIDE RECORDS SUMMARY | ~2019-11-12 | XMS | Encounter Summary ---
Demographics + + + | Address | [address] | | | [place] [address] | + + + | Home Phone [...] Providers + +------+ + | Care Senior Speech Pathologist Name | Role | Phone | + [...] + | 01/25/ | Telephone | [facility] | Daljit Singletary, | Appointment | | 2017 | | CARDIOLOGY [address] | MD [address] [place] | | | | | [place], | [place], | | | | | [place] [address] | [place] [address] | | | | | [phone] | [phone] | | | | | | | [...] | Monitor | | MD [address] | Interrogation | | | | | [place], | (Primary Dx); | | | | | [place] [address] | Presence of | | | | | [phone] | permanent cardiac | | | | [...] W | | | | | | [place], | | | | | | [place] [address] | | | | | | [phone] | | | | | | | | +--------+ + + + + documented as of this encounter Visit Diagnoses Not on filedocumented in this encounter"
--- OUTSIDE RECORDS SUMMARY | ~2019-11-12 | XMS | Encounter Summary ---
Demographics + + + | Address | [address] | | | [place] [address] | + + + | Home Phone [...] Team Providers + +------+ + | Care Janitor Cleaner Name | Role | Phone | [...] [address] | | | | | [place], | [place], | | | | | [place] [address] | [place] [address] | | | | | [phone] | [phone] | | | | | | | [...] | 2018 | Monitor | | [address] [place] | Interrogation | | | | | [place], | (Primary Dx); | | | | | [place] [address] | Presence of | | | | | [phone] | permanent cardiac | | | | [...] | | | | | | [place] [address] | | | | | | [phone] | | | | | | | [...] Resulting Agency Comment | + + | [facility] | + + + +---------+ + [...] Resulting Agency Comment | + + | [facility] | + + + +---------+ + [...] Resulting Agency Comment | + + | [facility] | + + + +---------+ + [...] Resulting Agency Comment | + + | [facility] | + + + +---------+ + [...] Resulting Agency Comment | + + | [facility] | + + + +---------+ + [...] Resulting Agency Comment | + + | [facility] | + + + +---------+ + + [...] Resulting Agency Comment | + + | [facility] | + + + +---------+ + [...] Resulting Agency Comment | + + | [facility] | + + + +---------+ + [...] Resulting Agency Comment | + + | [facility] | + + + +---------+ + [...] Resulting Agency Comment | + + | [facility] | + + + +---------+ [...] Resulting Agency Comment | + + | [facility] | + + + +---------+ + [...] Resulting Agency Comment | + + | [facility] | + + + +---------+ + + [...] Resulting Agency Comment | + + | [facility] | + + + +---------+ + [...] Resulting Agency Comment | + + | [facility] | + + + +---------+ + [...] Resulting Agency Comment | + + | [facility] | + + + +---------+ + + [...] Resulting Agency Comment | + + | [facility] | + + + +---------+ [...]
--- OUTSIDE RECORDS SUMMARY | ~2019-11-12 | XMS | Encounter Summary ---
Demographics + + + | Address | [address] | | | [place] [address] | + + + | Home Phone [...] Team Providers + +------+ + | Care Jumpbasting Canvas Baster Name | Role | Phone | [...] | SR | | | | | [phone] | | | +--------+ + + + [...] Dx); | | | | | [place] [address] | Presence of | | | | | [phone] | permanent cardiac | | | | [...] | | | | | | [place], | | | | | | [place] [address] | | | | | | [phone] | | | | | | | [...]
--- OUTSIDE RECORDS SUMMARY | ~2019-11-12 | XMS | Encounter Summary ---
Demographics + + + | Address | [address] | | | [place] [address] | + + + | Home Phone [...] + + | 04/07/ | Office | [facility] UROLOGY | Matthew Uriarte | Left ureteral | | 2019 | Visit | [address] | MD Tawanna [address] | calculus (Primary | | | | [place], [place] | [place] | Dx); Kidney stones | | | | [address] | [address] | | | | | [phone] | | | +--------+---------+ + + + [...] April 13, 2019 at 7:45 AM at [facility]. Please report to the [facility] no later than 6:15 AM. REMEMBER: NOTHING TO EAT OR DRINK AFTER MIDNIGHT April 12, 2019. NO FISH OIL, ASPIRIN OR ASPIRIN PRODUCTS ONE WEEK PRIOR TO SURGERY. Tylenol and Advil are OK. You will need to get the following testing done prior to surgery: CBC, BMP YOU WILL NEED TO BRING A FREIGHT TRUCKER WITH YOU THE DAY OF SURGERY. Call us at [phone] with any questions. [] Pain management booklet [...] [employer] Peptic ulcer disease Premature ventricular contraction [facility] care 06/26/2013 LAST PSA:12/16/2010 RESULT:0.14 [...] Surgeon: Daljit Singletary MD; Location: [facility] CV LAB CARDIAC CATHERIZATION N/A 01/25/2019 Procedure: CV Cor Angio; Surgeon: Daljit Singletary MD; Location: [facility] CV LAB COLONOSCOPY N/A 12/24/2017 Procedure: COLONOSCOPY; Surgeon: Emmanuel Daniel MD; Location: [facility] MEDICAL PROCEDURE UNIT COLONOSCOPY N/A 01/05/2019 Procedure: COLONOSCOPY; Surgeon: Emmanuel Daniel MD; Location: [facility] MEDICAL PROCEDURE UNIT EGD 12/24/2017 [...] Surgeon: Emmanuel Daniel MD; Location: [facility] MEDICAL PROCEDURE UNIT UPPER GASTROINTESTINAL ENDOSCOPY N/A 01/05/2019 Procedure: EGD; Surgeon: Emmanuel Daniel MD; Location: [facility] MEDICAL PROCEDURE UNIT VASECTOMY Family [...] EVERY DAY, Disp: 90 tablet, Rfl: 3 [facility] [...] 911, Disp: 100 ta blet, Rfl: 3 [place]-3 Fatty Acids (SALMON OIL-1000 PO), CAPS, one capsule by mouth daily twice daily , Disp: , Rfl: ondansetron (ZOFRAN ODT) 4 mg disintegrating tablet, Take 4 mg by mouth., Disp: , Rfl: ONE TOUCH DELICA LANCETS [facility], Check glucose as needed for [...] have not thoroughly proofread this note, and [employer] team member errors are very likely to occur. CC: Kirk French MD documented in this encounter Plan of Treatment +--------+ + + + + | Date | Type | Specialty | Care Team | Description | +--------+ + + + + | 11/20/ | Implant | Cardiology | Daljit Singletary, | Remote Device | | 2018 | Monitor | | [address] [place] | Interrogation | | | | | [place], | (Primary Dx); | | | | | [place] [address] | Presence of | | | | | [phone] | permanent cardiac | | | | [...] | | | | | | [place], | | | | | | [place] [address] | | | | | | [phone] | | | | | | | [...]
--- OUTSIDE RECORDS SUMMARY | ~2019-11-12 | XMS | Encounter Summary ---
Demographics + + + | Address | [address] | | | [place] [address] | + + + | Home Phone [...] Team Providers + +------+ + | Care Embroidery Specialist Name | Role | Phone | [...] Refill | | 2014 | | MEDICINE [facility] | DO [address] | | | | | [address] | [place] | | | | | [place], [place] | [address] | | | | | [address] | | | | | | [phone] | | | +--------+--------+ + + + [...] 2018 | Monitor | | [address] | Interrogation | | | | | [place], | (Primary Dx); | | | | | [place] [address] | Presence of | | | | | [phone] | permanent cardiac | | | | [...] W | | | | | | [place], | | | | | | [place] [address] | | | | | | [phone] | | | | | | | | +--------+ + + + + documented as of this encounter Visit Diagnoses Not on filedocumented in this encounter"
--- OUTSIDE RECORDS SUMMARY | ~2019-11-12 | XMS | Encounter Summary ---
Demographics + + + | Address | [address] | | | [place] [address] | + + + | Home Phone [...] Providers + +------+ + | Care Control Clerk Head Name | Role | Phone | + +------+ + | Kirk French MD | PCP | | + +------+ + Encounter Details +--------+ + + + + | Date | Type | Department | Care Team | Description | +--------+ + + + + | 08/10/ | Orders Only | [facility] | [place], | Mixed hyperlipidemia | | 2016 | | [facility] LABORATORY | PARISA [place] [address] | (Primary Dx) | | | | [address] [place] | [place], | | | | | [place] | [place] [address] | | | | | [address] | [phone] | | | | | [phone] | | | +--------+ + + + [...] | 2018 | Monitor | | [address] [place] | Interrogation | | | | | [place], | (Primary Dx); | | | | | [place] [address] | Presence of | | | | | [phone] | permanent cardiac | | | | [...] | | | | | | [place], | | | | | | [place] [address] | | | | | | [phone] | | | | | | | [...]
--- OUTSIDE RECORDS SUMMARY | ~2019-11-12 | XMS | Encounter Summary ---
Demographics + + + | Address | [address] | | | [place] [address] | + + + | Home Phone [...] Team Providers + +------+ + | Care Ems Driver Name | Role | Phone | + +------+ + PCP | Unavailable | + +------+ + Encounter Details +--------+ + + + + | Date | Type | Department | Care Team | Description | +--------+ + + + + | 12/01/ | Hospital | [facility] | | | | 1997 | Encounter | MED CTR EMERGENCY | | | | | | CENTER [address] | | | | | | [place] | | | | | | [address] | | | | | | [phone] | | | +--------+ + + + [...] Dx); | | | | | [place] [address] | Presence of | | | | | [phone] | permanent cardiac | | | | [...] W | | | | | | [place], | | | | | | [place] [address] | | | | | | [phone] | | | | | | | | +--------+ + + + + documented as of this encounter Visit Diagnoses Not on filedocumented in this encounter"
--- OUTSIDE RECORDS SUMMARY | ~2019-11-12 | XMS | Encounter Summary ---
Demographics + + + | Address | [address] | | | [place] [address] | + + + | Home Phone [...] Team Providers + +------+ + | Care Briquette Maker Name | Role | Phone | [...] + + | 08/30/ | Refill | [facility] | Kirk French | Medication Refill | | 2019 | | [facility] | MD Brea [address] | | | | | [facility] | | | | | [address] | [place] [address] | | | | | [place], [place] | [phone] | | | | | [address] | | | | | | [phone] | | | +--------+--------+ + + + [...] | | | | | [place], | (Primary Dx); | | | | | [place] [address] | Presence of | | | | | [phone] | permanent cardiac | | | | [...] | | | | | | [place] [address] | | | | | | [phone] | | | | | | | | +--------+ + + + + documented as of this encounter Visit Diagnoses Not on filedocumented in this encounter"
--- OUTSIDE RECORDS SUMMARY | ~2019-11-12 | XMS | Encounter Summary ---
Demographics + + + | Address | [address] [place] [address] | | | [place] [address] | + + + | Home Phone [...] [place] | | | | | [address] | | + + + + + Care Team Providers + +------+ + | Care Industrial Engineering Name | Role | Phone | [...] 2019 | | Center at [facility] [address] | MD [address] | | | | | [address] | [facility] [place] | | | | | Mailcode: [place] | [address] | | | | | for Health and | [phone] | | | | | [facility] | | | | | | [facility] [place] | | | | | | [address] | | | | | | [phone] | | | +--------+ + + + [...]
--- OUTSIDE RECORDS SUMMARY | ~2019-11-12 | XMS | Encounter Summary ---
Demographics + + + | Address | [address] | | | [place] [address] | + + + | Home Phone [...] Providers + +------+ + | Care Eeg Technician Name | Role | Phone | [...] [address] | | | | | | [place], [place] | (Fax) | | | | | [address] | | | | | | [phone] | | | +--------+ + + + [...] 2019 | Monitor | | [address] | Interrogation | | | | | [facility] [place], | (Primary Dx); | | | | | [place] [address] | Presence of | | | | | [phone] | permanent cardiac | | | | [...] | | | | | | [place] [address] | | | | | | [phone] | | | | | | | | +--------+ + + + + documented as of this encounter Visit Diagnoses Not on filedocumented in this encounter"
--- OUTSIDE RECORDS SUMMARY | ~2019-11-12 | XMS | Encounter Summary ---
Demographics + + + | Address | [address] | | | [place] [address] | + + + | Home Phone [...] Providers + +------+ + | Care Nurse Informaticist Name | Role | Phone | [...] CARE [address] | Guy Lrakin MD | | | | | [place] | [address] | | | | | [address] | [place] | | | | | [phone] | [address] | | | | | | | [...] 2018 | Monitor | | MD [address] [place] [place] | Interrogation | | | | | [place], | (Primary Dx); | | | | | [place] [address] | Presence of | | | | | [phone] | permanent cardiac | | | | [...] | | | | | | [place] [address] | | | | | | [phone] | | | | | | | | +--------+ + + + + documented as of this encounter Visit Diagnoses Not on filedocumented in this encounter"
[~2019-11-12 07:50] MED LIST changes: +BENADRYL25 MG PO; +BLACK ELDERBER1 EACH PO; +CINNAMON500 MG PO; +DILAUDID4 MG PO; +LIPITOR20 MG PO; +LISINOPRIL10 MG PO; +MSM1000 M1 PO; +NORTRIPTYLINE H25 MG PO; +PYRIDOXINE HCL25 MG PO; +REQUIP3 MG PO; +ROXICODONE30 MG PO; +SALMON OIL 1,01 EACH PO; +VITAMIN B-1250 MCG PO; +VITAMIN C500 M5 PO
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
== END 2019-11-12 11:30 | disposition home or self-care (01) ==
LOC: ED 07:50
DX: K58.9 Irritable bowel syndrome, unspecified (principal); I10 Essential (primary) hypertension; Z87.891 Personal history of nicotine dependence; Z88.0 Allergy status to penicillin; Z88.5 Allergy status to narcotic agent; Z88.1 Allergy status to other antibiotic agents; Z79.899 Other long term (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; Z79.82 Long term (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
CPT/HCPCS: 80053; 85025; 96361; 96374; 96375; 96376; 99284-25; J1170; J2405; J7121

== ENCOUNTER 2019-11-16 17:05 | Emergency (ER) | payer MEDICARE ==
[~2019-11-16] VITALS: Ht 193 cm; Wt 95.2 kg
--- OUTSIDE RECORDS SUMMARY | ~2019-11-16 | XMS | Encounter Summary ---
Demographics + + + | Address | [address] | | | [place] [address] | + + + | Home Phone | | + + + | Preferred Language | Unknown | + + + | Marital Status | | + + + | Jain Affiliation | [id number] | + + + | Race | Unknown | + + + | Ethnic Group | Unknown | + + + Author + + + | Author | [facility] | | | and [place] | + + + | Organization | [facility] | | | and [...] Team Providers + +------+ + | Care Social Studies Teacher Name | Role | Phone | + +------+ + | Michael Amanda DO | PCP | | + +------+ + Reason for Visit + + + | Reason | Comments | + + + | Hypertension | | + + + | Shortness of Breath | | + + + Encounter Details +--------+ + + + + | Date | Type | Department | Care Team | Description | +--------+ + + + + | 03/02/ | Emergency | [facility] | Lizbeth Green | Situational stress | | 2013 | | [facility] | DO Nicole Fink | (Primary Dx) | | | | CENTER [address] | [place], [place] | | | | | [place], [place] | [address] | | | | | [address] | | | | | | [phone] | | | +--------+ + + + [...] + + documented as of this encounter Last Filed Vital Signs + + + + + | Vital Sign | Reading | Time Taken | Comments | + + + + + | Blood Pressure | 131/77 | 03/02/2014 5:26 PM | | | | | PDT | | + + + + + | Pulse | 73 | 03/02/2014 5:26 PM | | | | | PDT | | + + + + + | Temperature | 35.8 C (96.5 F) | 03/02/2014 5:26 PM | | | | | PDT | | + + + + + | Respiratory Rate | 14 | 03/02/2014 5:26 PM | | | | | PDT | | + + + + + | Oxygen Saturation | 98% | 03/02/2014 5:26 PM | | | | | PDT | | + + + + + | Inhaled Oxygen | - | - | | | Concentration | | | | + + + + + | Weight | 124.7 kg (275 lb) | 03/02/2014 5:26 PM | | | | | PDT | | + + + + + | Height | 193 cm (6' 4") | 03/02/2014 5:26 PM | | | | | PDT | | + + + + + | Body Mass Index | 33.47 | 03/02/2014 5:26 PM | | | | | PDT | | + + + + + documented in this encounter Discharge Instructions Instructions Ama Campbell RN - 03/02/2014Take the ativan as needed You may take an extra clonidine for elevated BP Keep follow up appointment with DR Brasher IF you need a new doc you can try over at [facility] documented in this encounter Medications at Time of Discharge [...] mg by mouth | | 0 | 04/18/20 | | | (BENADRYL) 25 MG | [...] + + + +---------+ + + | Mccurtain-3 Fatty | CAPS, one capsule by | | 0 | 04/18/20 | | | Acids (SALMON | mouth [...] + + + +---------+ + + | amLODIPine | Take 5 mg by mouth | | 0 | | | | (NORVASC) 5 mg | Daily. | | | | 4 | | tablet | | | | | | + + + +---------+ + + | clonidine | Take 0.2 mg by mouth | | 0 | | | | (CATAPRES) 0.2 MG | 3 times daily. | | | | 4 | | tablet | | | | | | + + + +---------+ + + | diazepam (VALIUM) | Take 2.5 mg by mouth | | 0 | | | | 5 mg tablet | 2 times daily. | | | | 4 | + + + +---------+ + + | diltiazem | TAKE ONE CAPSULE BY | 30 | 5 | 09/25/20 | | | (CARDIZEM CD) 120 mg | MOUTH EVERY DAY | capsule | | 13 | 5 | | 24 hr capsule | | | | | | + + + +---------+ + + | dronabinol | Take 10 mg by mouth | | 0 | | | | (MARINOL) 10 MG | 2 times daily | | | | 7 | | capsule | (before meals). | | | | | + + + +---------+ + + | gabapentin | Take 600 mg by mouth | | 0 | | | | (NEURONTIN) 600 MG | 3 times daily. | | | | 4 | | tablet | | | | | | + + + +---------+ + + | glucose blood | Check glucose for | 30 each | 2 | 08/17/20 | | | test strips (ONE | symptomatic | | | 13 | 4 | | TOUCH ULTRA TEST) | hypoglycemia prn | | | | | | stripIndications: | | | | | | | Hypoglycemia | | | | | | + + + +---------+ + + | HYDROmorphone | Take 4 mg by mouth | | 0 | | | | (DILAUDID) 4 MG | every 4 hours as | | | | 4 | | tablet | needed. Done by his | | | | | | | pain clinic | | | | | + + + +---------+ + + | isosorbide | Take 1 tablet by | 30 | 11 | 01/30/20 | | | mononitrate (IMDUR) | mouth Daily. | tablet | | 14 | 5 | | 30 mg ER tablet | | | | | | + + + +---------+ + + | LORazepam (ATIVAN) | 11/23 to 1 tab up to | 20 | 0 | 03/02/20 | | | 1 mg tablet | three times per day | tablet | | 14 | 5 | | | prn | | | | | + + + +---------+ + + | Magnesium 500 MG | Take 500 mg by mouth | | 0 | 09/05/20 | | | CAPS | Daily. | | | 13 | 5 | + + + +---------+ + + | MELATONIN | TABS, at bedtime as | | 0 | 03/09/20 | | | | needed | | | 12 | 8 | + + + +---------+ + + | metoprolol | TAKE ONE TABLET BY | 30 | 5 | 10/18/20 | | | (TOPROL-XL) 200 MG | MOUTH EVERY DAY | tablet | | 13 | 4 | | 24 hr tablet | | | | | | + + + +---------+ + + | nitroglycerin | Place 1 tablet under | 25 | 12 | 12/21/19 | | | (NITROSTAT) 0.4 mg | the tongue every 5 | tablet | | 14 | 5 | | SL tablet | minutes as needed | | | | | | | for Chest pain. | | | | | + + + +---------+ + + | pravastatin | TAKE ONE TABLET BY | 90 | 0 | 11/22/19 | | | (PRAVACHOL) 40 MG | MOUTH EVERY DAY | tablet | | 14 | 4 | | tablet | | | | | | + + + +---------+ + + | promethazine | Take 25 mg by mouth | | 0 | 03/09/20 | | | (PHENERGAN) 25 mg | every 8 hours as | | | 12 | 8 | | tablet | needed. | | | | | + + + +---------+ + + | valACYclovir | Take 1 tablet daily | 90 | 3 | 08/17/20 | | | (VALTREX) 500 mg | | tablet | | 13 | 4 | | tabletIndications: | | | | | | | Herpes | | | | | | + + + +---------+ + + documented as of this encounter Plan of Treatment +--------+ + + + + | Date | Type | Specialty | Care Team | Description | +--------+ + + + + | 11/20/ | Implant | Cardiology | Daljit Singletary, | Remote Device | | 2019 | Monitor | | MD [address] [facility] | Interrogation | | | | | [place], | (Primary Dx); | | | | | [place] [address] | Presence of | | | | | [phone] | permanent cardiac | | | | [...] | 2018 | Monitor | | MD [address] [facility] | Interrogation | | | | | [place], | (Primary Dx); | | | | | [place] [address] | Presence of | | | | | [phone] | permanent cardiac | | | | | | pacemaker; | | | | | | Sinoatrial node | | | | | | dysfunction (HCC) | | | | | | with symptomatic | | | | | | bradycardia | +--------+ + + + + | 01/01/ | Office | Cardiology | Silvia | | | 2019 | Visit | | PARISA [place] [address] | | | [address] [place], | | | | | | [place] [address] | | | | | | [phone] | | | | | | | | +--------+ + + + + documented as of this encounter Visit Diagnoses + + | Diagnosis | + + | Situational stress - Primary Other psychological or physical stress, not elsewhere | | classified | + + documented in this encounter
--- OUTSIDE RECORDS SUMMARY | ~2019-11-16 | XMS | Encounter Summary ---
Demographics + + + | Address | [address] | | | [place] [address] | + + + | Home Phone | | + + + | Preferred Language | Unknown | + + + | Marital Status | | + + + | Restoration Affiliation | 1013 | + + + | Race | Unknown | + + + | Ethnic Group | Unknown | + + + Author + + + | Author | [facility] | | | and [place] | + + + | Organization | [facility] | | | [...] Team Providers + +------+ + | Care Front Desk Assistant Name | Role | Phone | + +------+ + PCP | Unavailable | + +------+ + Encounter Details +--------+ + + + + | Date | Type | Department | Care Team | Description | +--------+ + + + + | 02/28/ | [facility] | [facility] | Geri Angel, | | | 2011 | Encounter | MED CTR XRAY [address] | ASSOCIATE PROFESSOR OF GEOGRAPHY [address] | | | | | [place] | [address] [place] | | | | | [place] [address] | [id number] | | | | | [phone] | | | +--------+ + + + [...] | | 2019 | Monitor | | [address] | Interrogation | | | | | [place], | (Primary Dx); | | | | | [place] [address] | Presence of | | | | | [phone] | permanent cardiac | | | | [...] Interrogation | | | | | [place], | (Primary Dx); | | | | | [place] [address] | Presence of | | | | | [phone] | permanent cardiac | | | | [...] W | | | | | | [place], | | | | | | [place] [address] | | | | | | [phone] | | | | | | | | +--------+ + + + + documented as of this encounter Procedures + +--------+ + + + | Procedure Name | Priori | Date/Time | Associated Diagnosis | Comments | | | ty | | | | + +--------+ + + + | CV DIAGNOSTIC | | 02/29/2012 | | Results for this | | CARDIAC CATH | | 6:12 AM | | procedure are in the | | | | PDT | | results section. | + +--------+ + + + documented in this encounter Results CV Adult Cardiac Cath Diag/PCI (02/29/2012 6:12 AM PDT) + + | Specimen | + + | | + + + + + | Narrative | Performed At | + + + | [facility] Diagnostic Imaging Department | [facility] | | [address] [facility] | [facility] | | LEFT HEART CATHETERIZATION | [facility] | | REPORT 02/29/2012 HEMODYNAMICS: Aortic pressure 137/33, with a | | | mean of 107 mmHg. LV pressure 140 /3 mmHg. INDICATION FOR | | | PROCEDURE: THE PATIENT IS A 52-YEAR-OLD MAN WHO PRESENTED WITH | | | PERSISTENT CHEST PAIN ON EXERTION. HE HAD A LEFT HEART CATH TODAY TO | | | EVALUATE FOR THE PRESENCE OF CORONARY ARTERY DISEASE. | | | PROCEDURE: After informed consent was obtained, patient was taken to | | | Cardiac Supervisor [employer]. He was prepared and draped in the usual fashion | | | under a sterile technique and local anesthesia, percutaneous access | | | was obtained using #6- Mexican sheath in the right femoral artery. | | | Right heart cath was not performed in this patient. Left | | | ventriculography was performed using #6-Mexican pigtail catheter. | | | The selective coronary angiography were then performed in several | | | sagittal and oblique projection using the 6-Mexican JL 4 and #6 Mexican | | | 3DRC diagnostic catheters. The patient received a total of 2 mg of | | | Versed and 200 mcg of fentanyl intravenously for the conscious | | | sedation during procedure. A total of 120 mL of Isovue-370 | | | contrast was utilized. Procedure was not complicated. At the | | | conclusion of procedure, the catheters and the sheath were removed. | | | Hemostasis was obtained using the Angio-Seal deployment to the | | | puncture site of the right femoral artery. Distal pulses were | | | present and unchanged. LEFT VENTRICULOGRAPHY Left | | | ventriculography was performed in the right anterior oblique | | | projection. Left ventricular cavity is normal in size. LVEF is | | | calculated at 65%. There is mitral valve with dilatation noted. | | | CORONARY ANGIOGRAPHY LEFT MAIN ARTERY: The left main artery | | | is a medium-caliber vessel that bifurcates into the left anterior | | | descending artery and left circumflex artery. The left main artery | | | is free of disease. LEFT ANTERIOR DESCENDING ARTERY: The left | | | anterior descending artery is a medium-caliber vessel that wraps | | | around the apex and gives rise to 2 diagonal branches. There is a | | | luminal irregularity along the proximal portion of the LAD. | | | LEFT CIRCUMFLEX ARTERY: The left circumflex artery is a | | | medium-caliber nondominant vessel that is free of disease. RIGHT | | | CORONARY ARTERY: The right coronary artery is a large-caliber | | | dominant vessel that bifurcates into the posterior descending artery | | | and posterolateral artery. There is also a luminal irregularity | | | at the proximal portion of the vessel. IMPRESSION: 1. A | | | NONCRITICAL CORONARY ARTERY DISEASE; A LUMINAL IRREGULARITY AT THE | | | PROXIMAL PORTION OF THE LEFT ANTERIOR DESCENDING ARTERY AND RIGHT | | | CORONARY ARTERY. 2. THE CORONARY CIRCULATION IS RIGHT | | | DOMINANT. 3. A NORMAL LEFT VENTRICULAR SIZE, WALL THICKNESS AND | | | MOTION PRESERVED. LEFT VENTRICULAR SYSTOLIC FUNCTION LVEF WAS 65%. | | | 4. A MILD SYSTEMIC HYPERTENSION. 5. A SUCCESSFUL | | | ANGIO-SEAL DEPLOYMENT TO THE PUNCTURE SITE OF THE RIGHT FEMORAL | | | ARTERY. Dictated Date/Time: 02/29/2012 08:01 Transcribed | | | Date/Time: 02/29/2012 09:09 Meter Repairer Helper: | | | <Electronically Signed by Daljit Singletary MD [facility]> 02/29/12 | | | 1002 | | + + + + + | Procedure Note | + + | Kevin, Rad Conversion - 12/29/2013 5:04 PM [facility] | | Diagnostic Imaging Department | | [address] [facility] | | | | | | | | | | | | LEFT HEART CATHETERIZATION REPORT 02/29/2012 | | | | HEMODYNAMICS: Aortic pressure 137/33, with a mean of 107 mmHg. LV pressure 140 | | /3 mmHg. | | | | INDICATION FOR PROCEDURE: THE PATIENT IS A 52-YEAR-OLD MAN WHO PRESENTED WITH | | PERSISTENT CHEST PAIN ON EXERTION. HE HAD A LEFT HEART CATH TODAY TO EVALUATE | | FOR THE PRESENCE OF CORONARY ARTERY DISEASE. | | | | PROCEDURE: After informed consent was obtained, patient was taken to Cardiac | | Supervisor [employer]. He was prepared and draped in the usual fashion under a sterile | | technique and local anesthesia, percutaneous access was obtained using #6- | | Mexican sheath in the right femoral artery. Right heart cath was not performed | | in this patient. Left ventriculography was performed using #6-Mexican pigtail | | catheter. The selective coronary angiography were then performed in several | | sagittal and oblique projection using the 6-Mexican JL 4 and #6 Mexican 3DRC | | diagnostic catheters. The patient received a total of 2 mg of Versed and 200 | | mcg of fentanyl intravenously for the conscious sedation during procedure. A | | total of 120 mL of Isovue-370 contrast was utilized. Procedure was not | | complicated. | | | | At the conclusion of procedure, the catheters and the sheath were removed. | | Hemostasis was obtained using the Angio-Seal deployment to the puncture site of | | the right femoral artery. Distal pulses were present and unchanged. | | | | LEFT VENTRICULOGRAPHY | | | | Left ventriculography was performed in the right anterior oblique projection. | | Left ventricular cavity is normal in size. LVEF is calculated at 65%. There | | is mitral valve with dilatation noted. | | | | CORONARY ANGIOGRAPHY | | | | LEFT MAIN ARTERY: The left main artery is a medium-caliber vessel that | | bifurcates into the left anterior descending artery and left circumflex artery. | | The left main artery is free of disease. | | | | LEFT ANTERIOR DESCENDING ARTERY: The left anterior descending artery is a | | medium-caliber vessel that wraps around the apex and gives rise to 2 diagonal | | branches. There is a luminal irregularity along the proximal portion of the | | LAD. | | | | LEFT CIRCUMFLEX ARTERY: The left circumflex artery is a medium-caliber | | nondominant vessel that is free of disease. | | | | RIGHT CORONARY ARTERY: The right coronary artery is a large-caliber dominant | | vessel that bifurcates into the posterior descending artery and posterolateral | | artery. There is also a luminal irregularity at the proximal portion of the | | vessel. | | | | IMPRESSION: | | 1. A NONCRITICAL CORONARY ARTERY DISEASE; A LUMINAL IRREGULARITY AT THE | | PROXIMAL PORTION OF THE LEFT ANTERIOR DESCENDING ARTERY AND RIGHT CORONARY | | ARTERY. | | | | 2. THE CORONARY CIRCULATION IS RIGHT DOMINANT. | | | | 3. A NORMAL LEFT VENTRICULAR SIZE, WALL THICKNESS AND MOTION PRESERVED. LEFT | | VENTRICULAR SYSTOLIC FUNCTION LVEF WAS 65%. | | | | 4. A MILD SYSTEMIC HYPERTENSION. | | | | 5. A SUCCESSFUL ANGIO-SEAL DEPLOYMENT TO THE PUNCTURE SITE OF THE RIGHT | | FEMORAL ARTERY. | | | | Dictated Date/Time: 02/29/2012 08:01 | | Transcribed Date/Time: 02/29/2012 09:09 | | Meter Repairer Helper: | | <Electronically Signed by Daljit Singletary MD [facility]> 02/29/12 1002 | + + + +---------+ + + | Performing | Address | City/State/Zipcode | Phone Number | | Organization | | | | + +---------+ + + | [place] | | | | | [place] | | | | + +---------+ + + documented in this encounter Visit Diagnoses Not on filedocumented in this encounter"
--- OUTSIDE RECORDS SUMMARY | ~2019-11-16 | XMS | Encounter Summary ---
Demographics + + + | Address | [address] | | | [place] [address] | + + + | Home Phone | | + + + | Preferred Language | Unknown | + + + | Marital Status | | + + + | Christianity Affiliation | 1013 | + + + | Race | Unknown | + + + | Ethnic Group | Unknown | + + + Author + + + | Author | [facility] | | | and [place] | + + + | Organization | [facility] | | | [...] Team Providers + +------+ + | Care Greige Mender Name | Role | Phone | + +------+ + | Sarah French MD | PCP | | + +------+ + Reason for Referral Diagnostic/Screening (Routine) +--------+--------+ + + + + | Status | Reason | Specialty | Diagnoses / | Referred By | Referred To | | | | | Procedures | Contact | Contact | +--------+--------+ + + + + | Closed | | Radiology | Diagnoses | Jose Armando, | [facility] | | | | | Sinoatrial | Geri, SOFTWARE ANALYST | [address] | | | | | node | [address] | [place], | | | | | dysfunction | [place] | [place] | | | | | (HCC) | [place] | [address] | | | | | Coronary | [address] | Phone: | | | | | artery | Phone: | [phone] | | | | | disease | [phone] | Fax: | | | | | involving | Fax: | [phone] | | | | | [place] | [phone] | | | | | | coronary | | | | | | | artery of | | | | | | | [place] heart | | | | | | | without | | | | | | | angina | | | | | | | pectoris | | | | | | | Ascending | | | | | | | aortic | | | | | | | aneurysm | | | | | | | (HCC) | | | | | | | Procedures | | | | | | | ECHO | | | | | | | Complete PA | | | | | | | ECHO HEART | | | | | | | XTHORACIC,CO | | | | | | | MPLETE W | | | | | | | DOPPLER PA | | | | | | | ECHO HEART | | | | | | | XTHORACIC,CO | | | | | | | MPLETE, W/O | | | | | | | DOPPLER | | | | | | | 06/15>PEND | | | | | | | AIMS | | | +--------+--------+ + + + + Reason for Visit Diagnostic/Screening (Routine) +--------+--------+ + + + + | Status | Reason | Specialty | Diagnoses / | Referred By | Referred To | | | | | Procedures | Contact | Contact | +--------+--------+ + + + + | Closed | | Radiology | Diagnoses | Hellberg, | [facility] | | | | | Sinoatrial | Geri, SOFTWARE ANALYST | [address] | | | | | node | [address] | [place], | | | | | dysfunction | [place] | [place] | | | | | ([facility]) | [place], [place] | [address] | | | | | Coronary | [address] | Phone: | | | | | artery | Phone: | [phone] | | | | | disease | [phone] | Fax: | | | | | involving | Fax: | [phone] | | | | | [place] | [phone] | | | | | | coronary | | | | | | | artery of | | | | | | | [place] heart | | | | | | | without | | | | | | | angina | | | | | | | pectoris | | | | | | | Ascending | | | | | | | aortic | | | | | | | aneurysm | | | | | | | (HCC) | | | | | | | Procedures | | | | | | | ECHO | | | | | | | Complete PA | | | | | | | ECHO HEART | | | | | | | XTHORACIC,CO | | | | | | | MPLETE W | | | | | | | DOPPLER PA | | | | | | | ECHO HEART | | | | | | | XTHORACIC,CO | | | | | | | MPLETE, W/O | | | | | | | DOPPLER | | | | | | | 06/15>PEND | | | | | | | AIMS | | | +--------+--------+ + + + + Encounter Details +--------+ + + + + | Date | Type | Department | Care Team | Description | +--------+ + + + + | 06/16/ | [facility] | [facility] | Geri Angel, | Sinoatrial node | | 2016 | Encounter | [facility] ECHO [address] | SOFTWARE ANALYST [address] | dysfunction (HCC) | | | | [address] [place] | [address] [place], [place] | with symptomatic | | | | [place] [address] | [address] | bradycardia; | | | | [phone] | | Coronary artery | | | | | Juvenal Blake, | disease involving | | | | | Technologist | [place] coronary | | | | | | artery of [place] | | | | | | heart without angina | | | | | | pectoris; Ascending | | | | | | thoracic aortic | | | | | | aneurysm (HCC) | +--------+ + + + + Social [...] + + + +---------+ + + | [place]-3 Fatty | CAPS, one capsule by | [...] tablet by | 270 | 3 | 06/26/20 | | | (CATAPRES) 0.2 MG | mouth 3 times daily. | tablet | | 15 | 7 | | tablet | | | | | | + + + +---------+ + + | doxycycline | Take 100 mg by mouth | | 0 | | | | (MONODOX) 100 mg | 3 times daily. | | | | 7 | | capsule | | | | | | + + + +---------+ + + | dronabinol | Take 10 mg by mouth | | 0 | | | | (MARINOL) 10 MG | 2 times daily | | | | 7 | | capsule | (before meals). | | | | | + + + +---------+ + + | LYRICA 150 MG | Take 1 capsule by | | 0 | 11/20/20 | | | capsule | mouth 2 times daily. | | | 15 | 6 | | | PATIENT STATED NO | [...] tablet by | 90 | 3 | 06/26/20 | | | succinate | mouth every evening. | tablet | | 15 | 6 | | (TOPROL-XL) 200 mg | | [...] | nitroglycerin | Take one tablet | 100 | 3 | 07/23/20 | | | (NITROSTAT) 0.4 mg | under tongue as | tablet | | 15 | 6 | | SL tablet | needed for [...] tablet by | 90 | 3 | 06/26/20 | | | (PRAVACHOL) 40 MG | mouth nightly. | tablet | | 15 | 6 | | tablet | | | | [...] | 11/20/ | Implant | Cardiology | Sydni Singletary, | Remote Device | | 2018 | Monitor | | MD [address] | Interrogation | | | | | [place], | (Primary Dx); | | | | | [place] [address] | Presence of | | | | | [phone] | permanent cardiac | | | | | | pacemaker; | | | | | | Sinoatrial node | | | | | | dysfunction (HCC) | | | | | | with symptomatic | | | | | | bradycardia | +--------+ + + + + | 11/20/ | Implant | Cardiology | Sydni Singletary, | Remote Device | | 2018 | Monitor | | MD [address] | Interrogation | | | | | [place], | (Primary Dx); | | | | | [place] [address] | Presence of | | | | | [phone] | permanent cardiac | | | | | | pacemaker; | | | | | | Sinoatrial node | | | | | | dysfunction (HCC) | | | | | | with symptomatic | | | | | | bradycardia | +--------+ + + + + | 01/01/ | Office | Cardiology | Silvia, | | | 2020 | Visit | | Janeen, SOFTWARE ANALYST [address] | | | | | [address] [place], | | | | | | [place] [address] | | | | | | [phone] | | | | | | | | +--------+ + + + + documented as of this encounter Procedures + +--------+ + + + | Procedure Name | Priori | Date/Time | Associated Diagnosis | Comments | | | ty | | | | + +--------+ + + + | ECHO COMPLETE | Routin | 06/16/2016 | Sinoatrial node | Results for this | | | e | 11:24 AM | dysfunction (HCC) | procedure are in the | | | | PDT | with symptomatic | results section. | | | | | bradycardia | | | | | | Coronary artery | | | | | | disease involving | | | | | | [place] coronary | | | | | | artery of [place] | | | | | | heart without angina | | | | | | pectoris Ascending | | | | | | thoracic aortic | | | | | | aneurysm (HCC) | | + +--------+ + + + | LVEF VALUE | Routin | 06/16/2016 | | Results for this | | | e | | | procedure are in the | | | | | | results section. | + +--------+ + + + documented in this encounter Results ECHO Complete (06/16/2016 11:24 AM PDT) + +-------+ + + + | Component | Value | Ref Range | Performed | Pathologist | | | | | At | Signature | + +-------+ + + + | LVEF-TTE | 73 | | [facility] | | | TRANSTHORAC | | | [facility] | | | [facility] ECHO | | | MEDICAL | | | | | | C[facility] - | | | | | | IMAGING | | + +-------+ + + + + + | Specimen | + + | | + + + + ----+ | Narrative | Performed At | + + ----+ | Transthoracic | [facility] | | Echocardiography Report (TTE) Demographics Patient Name VICTOR HUGO [facility] | | [place] Room Number SARAH Patient | [facility] | | [id number] Date of Study 06/16/2016 Number | - IMAGING | | Visit Number [id number] | | | Referring Physician JOSE ARMANDO GARCIA Number Date of 1960 | | | Video Game Animator LUIS FERNANDO DUARTE Age | | | 56 year(s) Interpreting | | | GURJIT TROY | | | Scalloper SYDNI SINGLETARY, | | | Gender | | | Male Nurse Procedure Type of Study TTE | | | procedure: ECHO Complete. Procedure dateDate: 06/16/2016Start: 10:55 | | | AM Technical Quality: Adequate visualizationStudy Location: Echo | | | LabIndications: CAD IQUGMIUT CORONARY ARTERY 414.01/ I25.10 and | | | aneurysm, ThoracAorta 441.2/I71.2.Patient Status: RoutineHeight: 76 | | | inchesWeight: 254 poundsBSA: 2.45 m^2BMI: 30.92 kg/m^2Rhythm: Normal | | | Sinus Rhythm ConclusionsSummary1. Normal left ventricular size, wall | | | thickness and motion. Preserved leftventricular systolic function. | | | LVEF is 70%.2. Grade 1 left ventricular diastolic dysfunction.3. | | | Normal valvular structure.4. Mild aortic root dilatation measuring 4.0 | | | cm in diameter.5. Normal right-sided pressure.6. Normal IVC with a | | | normal respiratory collapse.7. When compared to echocardiography on | | | 03/19/15, no significant changes. | | | Signature | | | | | | PM | | | -------- FindingsMitral ValveStructurally normal mitral valve with | | | mild mitral valve regurgitation.Aortic ValveAortic valve is trileaflet | | | without significant stenosis or regurgitation.Tricuspid | | | ValveStructurally normal tricuspid valve without significant stenosis | | | orregurgitation.Normal right-sided pressure.Pulmonic ValveStructurally | | | normal pulmonic valve without significant stenosis | | | orregurgitation.Left AtriumNormal left atrium.Left VentricleLeft | | | ventricle is normal in size and function. Ejection fraction | | | isestimated at 70 %.Grade 1 left ventricular diastolic | | | dysfunction.Right AtriumNormal right atrium.Right VentricleNormal | | | right ventricular structure and function.Pericardial EffusionNo | | | evidence of pericardial effusion.Pleural EffusionNo evidence of | | | pleural effusion.MiscellaneousMild aortic root dilatation measuring | | | 4.0 cm in diameter.The IVC appears normal. Valves Mitral Valve Peak | | | E-Wave: 0.63 m/s Peak A-Wave: 0.78 m/s Tissue Doppler Septal e' | | | Velocity: 0.04 m/s Septal E/e' Ratio:14.3 Aortic Valve Structures | | | Left Atrium LA A/P Dimension: 4.08 cm LA | | | Area: 15.25 cm^2 LA Vol/BSA Index: 17 mL/m^2 LA | | | Volume: 40.43 ml Left Ventricle Diastolic Dimension: 5.21 cm | | | Systolic Dimension: 3.25 cm Septum Diastolic: 0.98 cm PW | | | Diastolic: 0.94 cm EF Calculated: 73% Miscellaneous Aorta Aortic | | | Root: 3.97 cm Ascending Aorta: 4.37 cm | | |Signature | | | | | | Electronically signed by SYDNI SINGLETARY MD(Interpreting physician) on | | | 06/16/2016 12:59 PM | | | | | | | | |Findings | | |Mitral Valve | | |Structurally normal mitral valve with mild mitral valve regurgitation. | | |Aortic Valve | | |Aortic valve is trileaflet without significant stenosis or regurgitation. | | |Tricuspid Valve | | |Structurally normal tricuspid valve without significant stenosis or | | |regurgitation. | | |Normal right-sided pressure. | | |Pulmonic Valve | | |Structurally normal pulmonic valve without significant stenosis or | | |regurgitation. | | |Left Atrium | | |Normal left atrium. | | |Left Ventricle | | |Left ventricle is normal in size and function. Ejection fraction is | | |estimated at 70 %. | | |Grade 1 left ventricular diastolic dysfunction. | | |Right Atrium | | |Normal right atrium. | | |Right Ventricle | | |Normal right ventricular structure and function. | | |Pericardial Effusion | | |No evidence of pericardial effusion. | | |Pleural Effusion | | |No evidence of pleural effusion. | | |Miscellaneous | | |Mild aortic root dilatation measuring 4.0 cm in diameter. | | |The IVC appears normal. | | | | | |Valves | | | | | | Mitral Valve | | | | | | Peak E-Wave: 0.63 m/s | | | Peak A-Wave: 0.78 m/s | | | | | | Tissue Doppler | | | | | | Septal e' Velocity: 0.04 m/s | | | Septal E/e' Ratio:14.3 | | | | | | Aortic Valve | | | | | |Structures | | | | | | Left Atrium | | | | | | LA A/P Dimension: 4.08 cm LA Area: 15.25 cm^2 | | | LA Vol/BSA Index: 17 mL/m^2 LA Volume: 40.43 ml | | | | | | Left Ventricle | | | | | | Diastolic Dimension: 5.21 cm Systolic Dimension: 3.25 cm | | | Septum Diastolic: 0.98 cm | | | PW Diastolic: 0.94 cm | | | EF Calculated: 73% | | | | | | Miscellaneous | | | | | | Aorta | | | | | | Aortic Root: 3.97 cm | | | Ascending Aorta: 4.37 cm | | | | | + + ----+ + + | Procedure Note | + + | Kevin, Rad Results In - 06/24/2016 11:44 AM PDT Transthoracic Echocardiography Report | | (TTE) Demographics Patient Name VICTOR HUGO BARRY Room Number SARAH | | Patient [id number] Date of Study 06/16/2016 Number Visit Number | | [id number] Referring Physician JOSE ARMANDO GARCIA Number | | Date of 1960 Video Game Animator LUIS FERNANDO DUARTE Age | | 56 year(s) Interpreting GURJIT TROY | | Scalloper SYDNI SINGLETARY, | | Gender Male NurseProcedureType of Study TTE | | procedure: ECHO Complete.Procedure dateDate: 06/16/2016Start: 10:55 AMTechnical Quality: | | Adequate visualizationStudy Location: Echo LabIndications: CAD IQUGMIUT CORONARY ARTERY | | 414.01/ I25.10 and aneurysm, ThoracAorta 441.2/I71.2.Patient Status: RoutineHeight: 76 | | inchesWeight: 254 poundsBSA: 2.45 m^2BMI: 30.92 kg/m^2Rhythm: Normal Sinus | | RhythmConclusionsSummary1. Normal left ventricular size, wall thickness and motion. | | Preserved leftventricular systolic function. LVEF is 70%.2. Grade 1 left ventricular | | diastolic dysfunction.3. Normal valvular structure.4. Mild aortic root dilatation | | measuring 4.0 cm in diameter.5. Normal right-sided pressure.6. Normal IVC with a normal | | respiratory collapse.7. When compared to echocardiography on 03/19/15, no significant | | changes.Signature | | ----- Electronically signed by SYDNI SINGLETARY MD(Interpreting physician) on | | 06/16/2016 12:59 | | PM FindingsMi | | tral ValveStructurally normal mitral valve with mild mitral valve regurgitation.Aortic | | ValveAortic valve is trileaflet without significant stenosis or regurgitation.Tricuspid | | ValveStructurally normal tricuspid valve without significant stenosis | | orregurgitation.Normal right-sided pressure.Pulmonic ValveStructurally normal pulmonic | | valve without significant stenosis orregurgitation.Left AtriumNormal left atrium.Left | | VentricleLeft ventricle is normal in size and function. Ejection fraction isestimated at | | 70 %.Grade 1 left ventricular diastolic dysfunction.Right AtriumNormal right | | atrium.Right VentricleNormal right ventricular structure and function.Pericardial | | EffusionNo evidence of pericardial effusion.Pleural EffusionNo evidence of pleural | | effusion.MiscellaneousMild aortic root dilatation measuring 4.0 cm in diameter.The IVC | | appears normal.Valves Mitral Valve Peak E-Wave: 0.63 m/s Peak A-Wave: 0.78 m/s Tissue | | Doppler Septal e' Velocity: 0.04 m/s Septal E/e' Ratio:14.3 Aortic ValveStructures Left | | Atrium LA A/P Dimension: 4.08 cm LA Area: 15.25 cm^2 LA Vol/BSA Index: | | 17 mL/m^2 LA Volume: 40.43 ml Left Ventricle Diastolic Dimension: 5.21 cm | | Systolic Dimension: 3.25 cm Septum Diastolic: 0.98 cm PW Diastolic: 0.94 cm EF | | Calculated: 73% Miscellaneous Aorta Aortic Root: 3.97 cm Ascending Aorta: 4.37 cm | |Rhythm: Normal Sinus Rhythm | | | |Conclusions | |Summary | |1. Normal left ventricular size, wall thickness and motion. Preserved left | |ventricular systolic function. LVEF is 70%. | |2. Grade 1 left ventricular diastolic dysfunction. | |3. Normal valvular structure. | |4. Mild aortic root dilatation measuring 4.0 cm in diameter. | |5. Normal right-sided pressure. | |6. Normal IVC with a normal respiratory collapse. | |7. When compared to echocardiography on 03/19/15, no significant changes. | | | |Signature | | | | Electronically signed by SYDNI SINGLETARY MD(Interpreting physician) on | | 06/16/2016 12:59 PM | | | | | |Findings | |Mitral Valve | |Structurally normal mitral valve with mild mitral valve regurgitation. | |Aortic Valve | |Aortic valve is trileaflet without significant stenosis or regurgitation. | |Tricuspid Valve | |Structurally normal tricuspid valve without significant stenosis or | |regurgitation. | |Normal right-sided pressure. | |Pulmonic Valve | |Structurally normal pulmonic valve without significant stenosis or | |regurgitation. | |Left Atrium | |Normal left atrium. | |Left Ventricle | |Left ventricle is normal in size and function. Ejection fraction is | |estimated at 70 %. | |Grade 1 left ventricular diastolic dysfunction. | |Right Atrium | |Normal right atrium. | |Right Ventricle | |Normal right ventricular structure and function. | |Pericardial Effusion | |No evidence of pericardial effusion. | |Pleural Effusion | |No evidence of pleural effusion. | |Miscellaneous | |Mild aortic root dilatation measuring 4.0 cm in diameter. | |The IVC appears normal. | | | |Valves | | | | Mitral Valve | | | | Peak E-Wave: 0.63 m/s | | Peak A-Wave: 0.78 m/s | | | | Tissue Doppler | | | | Septal e' Velocity: 0.04 m/s | | Septal E/e' Ratio:14.3 | | | | Aortic Valve | | | |Structures | | | | Left Atrium | | | | LA A/P Dimension: 4.08 cm LA Area: 15.25 cm^2 | | LA Vol/BSA Index: 17 mL/m^2 LA Volume: 40.43 ml | | | | Left Ventricle | | | | Diastolic Dimension: 5.21 cm Systolic Dimension: 3.25 cm | | Septum Diastolic: 0.98 cm | | PW Diastolic: 0.94 cm | | EF Calculated: 73% | | | | Miscellaneous | | | | Aorta | | | | Aortic Root: 3.97 cm | | Ascending Aorta: 4.37 cm | + + + + + + + | Performing | Address | City/State/Zipcode | Phone Number | | Organization | | | | + + + + + | [facility] | [address] | [place] | [phone] | | [facility] | | [address] | | | - IMAGING | | | | + + + + + LVEF VALUE (06/16/2016) + +-------+ + + + | Component | Value | Ref Range | Performed | Pathologist | | | | | At | Signature | + +-------+ + + + | LVEF-TTE | 70 | | | | | TRANSTHORAC | | | | | | IC ECHO | | | | | + +-------+ + + + documented in this encounter Visit Diagnoses + + | Diagnosis | + + | Sinoatrial node dysfunction (HCC) with symptomatic bradycardia Sinoatrial node | | dysfunction | + + | Coronary artery disease involving [place] coronary artery of [place] heart without | | angina pectoris | + + | Ascending thoracic aortic aneurysm (HCC) Thoracic aneurysm without mention of rupture | + + documented in this encounter"
--- OUTSIDE RECORDS SUMMARY | ~2019-11-16 | XMS | Encounter Summary ---
Demographics + + + | Address | [address] | | | [place] [address] | + + + | Home Phone | | + + + | Preferred Language | Unknown | + + + | Marital Status | | + + + | Gnosticism Affiliation | 1013 | + + + | Race | Unknown | + + + | Ethnic Group | Unknown | + + + Author + + + | Author | [facility] | | | and [place] | + + + | Organization | [facility] | | | [...] Team Providers + +------+ + | Care Quality Control Auditor Name | Role | Phone | + +------+ + | Kirk French MD | PCP | | + +------+ + Reason for Visit + + + | Reason | Comments | + + + | Appointment | EGD, colon Rescheduled to February 2 due to illness | + + + Encounter Details +--------+ + + + + | Date | Type | Department | Care Team | Description | +--------+ + + + + | 12/09/ | Telephone | [facility] | Emmanuel Daniel MD | Appointment (EGD, | | 2017 | | GASTROENTEROLOGY | [address], [place] | colon Rescheduled to | | | | [address] [place] | [address] [place] | December 24 due to | | | | [address] [place] | [address] | illness) | | | | [address] | | | | | | [phone] | | | +--------+ + + + [...] | 2019 | Monitor | | [address] [facility] | Interrogation | | | | | [place], | (Primary Dx); | | | | | [place] [address] | Presence of | | | | | [phone] | permanent cardiac | | | | [...] | 2018 | Monitor | | [facility] | Interrogation | | | | | [place], | (Primary Dx); | | | | | [place] [address] | Presence of | | | | | [phone] | permanent cardiac | | | | [...] | | | | | | [place], | | | | | | [place] [address] | | | | | | [phone] | | | | | | | | +--------+ + + + + documented as of this encounter Visit Diagnoses Not on filedocumented in this encounter"
--- OUTSIDE RECORDS SUMMARY | ~2019-11-16 | XMS | Encounter Summary ---
Demographics + + + | Address | [address] | | | [place] [address] | + + + | Home Phone | | + + + | Preferred Language | Unknown | + + + | Marital Status | | + + + | Oriental Orthodox Affiliation | 1013 | + + + [...] Team Providers + +------+ + | Care Stripping And Booking Machine Operator Name | Role | Phone | + +------+ + | Kirk French MD | PCP | | + +------+ + Encounter Details +--------+ + + + + | Date | Type | Department | Care Team | Description | +--------+ + + + + | 12/14/ | Abstract | [facility] | Provider, | | | 2019 | | GASTROENTEROLOGY | [address] | | | | | [address] | [place] | | | | | [address] | [place] [address] | | | | | [address] | | | | | | [phone] | | | +--------+ + + + [...] | 11/20/ | Implant | Cardiology | JoshDaljit parkinson, | Remote Device | | 2018 | Monitor | | MD [address] | Interrogation | | | | | [place], | (Primary Dx); | | | | | [place] [address] | Presence of | | | | | [phone] | permanent cardiac | | | | [...] | Monitor | | MD [address] | Interrogation | | | | | [place], | (Primary Dx); | | | | | [place] [address] | Presence of | | | | | [phone] | permanent cardiac | | | | [...] [address] | | | | | | [place], | | | | | | [place] [address] | | | | | | [phone] | | | | | | | | +--------+ + + + + documented as of this encounter Visit Diagnoses Not on filedocumented in this encounter"
--- OUTSIDE RECORDS SUMMARY | ~2019-11-16 | XMS | Encounter Summary ---
Demographics + + + | Address | [address] | | | [place] [address] | + + + | Home Phone | | + + + | Preferred Language | Unknown | + + + | Marital Status | | + + + | Uatsdin Affiliation | 1013 | + + + | Race | Unknown | + + + | Ethnic Group | Unknown | + + + Author + + + | Author | [facility] | | | and [place] | + + + | Organization | [facility] | | | [...] Team Providers + +------+ + | Care Loading Inspector Name | Role | Phone | + +------+ + | Michael Amanda DO | PCP | | + +------+ + Reason for Visit + + + | Reason | Comments | + + + | Foot Pain | Rm4 x1d post fall | + + + Encounter Details +--------+---------+ + + + | Date | Type | Department | Care Team | Description | +--------+---------+ + + + | 10/01/ | Office | [facility] | Mary Bradshaw | Injury of left foot, | | 2013 | Visit | CARE [address] | Guy Larkin MD | initial encounter | | | | [place] | [address] | (Primary Dx) | | | | [address] | [place] | | | | | [phone] | [address] | | | | | | | [...] + + + | Blood Pressure | 122/76 | 10/01/2014 1:34 PM | | | | | PST | | + + + + + | Pulse | 76 | 10/01/2014 1:34 PM | | | | | PST | | + + + + + | Temperature | 36.2 C (97.2 F) | 10/01/2014 1:34 PM | | | | | PST | | + + + + + | Respiratory Rate | 17 | 10/01/2014 1:34 PM | | | | | PST | | + + + + + | Oxygen Saturation | 97% | 10/01/2014 1:34 PM | | | | | PST | | + + + + + | Inhaled Oxygen | - | - | | | Concentration | | | | + + + + + | Weight | 112 kg (246 lb 14.4 | 10/01/2014 1:34 PM | | | | oz) | PST | | + + + + + | Height | 188 cm (6' 2") | 10/01/2014 1:34 PM | | | | | PST | | + + + + + | Body Mass Index | 31.7 | 10/01/2014 1:34 PM | | | | | PST | | + + + + + documented in this encounter Patient Instructions Patient Instructions Mary Bradshaw Jr., MD - 10/01/2014 3:28 PM PSTBuddy tape to es for two weeks Follow-up with Dr. Amanda Cold packs for 15 to 2 to0 minutes 3 or 4 times daily documented in this encounter Progress Notes Jan Kitty M - 10/01/2014 6:57 PM PSTCalled patient to inform him to geovany tape toes for two weeks, follow-up with Dr. Amanda, and use cold packs for 15-20 minutes 3-[address] er [address] Bradshaw. Patient voiced understanding. Electronically signed by Kitty Montoya at 12:57 PM Renetta Cruz RN - 10/01/2014 3:17 PM PSTPatient left before visit c abdilete, stating he has been here for three and half hours. 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 I provided patient with Dr. Bradley's card so he may contact us for results. Patient's best phone number: [phone] Renetta Lockwood RN ary Bradshaw MD - 10/01/2014 2:12 PM PSTFrederchica Sanchez presents with pain in his right foot after he tripped over his dog yesterday. The pain is mainly localized to the second di stal metatarsal and the second toe. He has swelling and ecchymosis. Physical exam: No acute distress Left ankle: Nontender Left foot: Tender and swollen over the distal second metatarsal and second toe with ecchymo sis, no rotational deformity is visible, sensation is intact Left foot x-ray: Small avulsion fracture of the middle phalanx at the PIP joint Diagnosis: Avulsion fracture of 2nd toe documented in this encounter Plan of Treatment +--------+ + + + + | Date | Type | Specialty | Care Team | Description | +--------+ + + + + | 11/20/ | Implant | Cardiology | Daljit Singletary, | Remote Device | | 2018 | Monitor | | MD [address] | Interrogation | | | | | [place], | (Primary Dx); | | | | | [place] [address] | Presence of | | | | | [phone] | permanent cardiac | | | | [...] 2018 | Monitor | | [address] | Interrogation | | | | | [place], | (Primary Dx); | | | | | [place] [address] | Presence of | | | | | [phone] | permanent cardiac | | | | | | pacemaker; | | | | | | Sinoatrial node | | | | | | dysfunction (HCC) | | | | | | with symptomatic | | | | | | bradycardia | +--------+ + + + + | 01/01/ Office | Cardiology | Silvia, | | | 2020 | Visit | | PARISA Vernon [address] | | | | | | [place], | | | | | | [place] [address] | | | | | | [phone] | | | | | | | | +--------+ + + + + documented as of this encounter Procedures + +--------+ + + + | Procedure Name | Priori | Date/Time | Associated Diagnosis | Comments | | | ty | | | | + +--------+ + + + | XR FOOT RIGHT 3 + VW | Routin | 10/01/2014 | Injury of left | Results for this | | | e | 2:40 PM | foot, initial | procedure are in the | | | | PST | encounter | results section. | + +--------+ + + + documented in this encounter Results XR Foot Right 3 + Vw (10/01/2014 2:40 PM PST) + + | Specimen | + + | | + + + + + | Narrative | Performed At | + + + | THREE VIEWS RIGHT FOOT 10/01/2014 2:40 PM CLINICAL HISTORY: pain | MISCELANIOUS | | COMPARISON: None available FINDINGS: Bipartite configuration | LAB | | of both first metatarsal sesamoids is noted. A tiny calcific density | | | projecting medial to the first MTP joint is non-specific. A subtle | | | chip fracture is suggested along the medial base of the middle | | | phalanx of the second digit. No other fracture or dislocation is | | | evident. Joint spaces of the foot are maintained. There are | | | enthesophytes at the calcaneal insertions of the Achilles tendon and | | | plantar aponeurosis. Soft tissue structures are unremarkable. | | | IMPRESSION - 1. SUSPECTED CHIP FRACTURE ALONG THE MEDIAL BASE OF | | | THE MIDDLE PHALANX OF THE SECOND DIGIT. 2. BIPARTITE FIRST | | | METATARSAL SESAMOID AND NON-SPECIFIC CALCIFIC DENSITY ALONG THE | | | MEDIAL ASPECT OF THE FIRST MTP JOINT. A SMALL FOREIGN BODY OR | | | INTRINSIC SOFT TISSUE CALCIFICATION COULD HAVE THIS APPEARANCE. | | | 3. CALCANEAL ENTHESOPHYTES. Dictated and Signed by: Rangel | | | MD Arthur Electronically signed: 10/01/2014 5:05 PM | | + + + + + | Procedure Note | + + | Kalpesh Brown Results In - 10/01/2014 5:08 PM PST THREE VIEWS RIGHT FOOT 10/01/2014 2:40 | | PMCLINICAL HISTORY: painCOMPARISON: None availableFINDINGS: Bipartite configuration of | | both first metatarsal sesamoids is noted. A tiny calcific density projecting medial to | | the first MTP joint isnon-specific. A subtle chip fracture is suggested along the | | medial base of themiddle phalanx of the second digit. No other fracture or dislocation | | isevident. Joint spaces of the foot are maintained. There are enthesophytes atthe | | calcaneal insertions of the Achilles tendon and plantar aponeurosis. Softtissue | | structures are unremarkable.IMPRESSION -1. SUSPECTED CHIP FRACTURE ALONG THE MEDIAL | | BASE OF THE MIDDLE PHALANX OF THESECOND DIGIT.2. BIPARTITE FIRST METATARSAL SESAMOID | | AND NON-SPECIFIC CALCIFIC DENSITY ALONGTHE MEDIAL ASPECT OF THE FIRST MTP JOINT. A | | SMALL FOREIGN BODY OR INTRINSICSOFT TISSUE CALCIFICATION COULD HAVE THIS APPEARANCE.3. | | CALCANEAL ENTHESOPHYTES.Dictated and Signed by: Rangel Gibson MD Electronically signed: | | 10/01/2014 5:05 PM | | | |IMPRESSION - | |1. SUSPECTED CHIP FRACTURE ALONG THE MEDIAL BASE OF THE MIDDLE PHALANX OF THE | |SECOND DIGIT. | | | |2. BIPARTITE FIRST METATARSAL SESAMOID AND NON-SPECIFIC CALCIFIC DENSITY ALONG | |THE MEDIAL ASPECT OF THE FIRST MTP JOINT. A SMALL FOREIGN BODY OR INTRINSIC | |SOFT TISSUE CALCIFICATION COULD HAVE THIS APPEARANCE. | | | |3. CALCANEAL ENTHESOPHYTES. | | | |Dictated and Signed by: Rangel Gibson MD | | Electronically signed: 10/01/2014 5:05 PM | + + + +---------+ + + | Performing | Address | City/State/Zipcode | Phone Number | | Organization | | | | + +---------+ + + | MISCELLANEOUS LAB | | | [phone] | + +---------+ + + | MISCELANIOUS LAB | | | [phone] | + +---------+ + + documented in this encounter Visit Diagnoses + + | Diagnosis | + + | Injury of left foot, initial encounter - Primary | + + documented in this encounter
--- OUTSIDE RECORDS SUMMARY | ~2019-11-16 | XMS | Encounter Summary ---
Demographics + + + | Address | [address] | | | [place] [address] | + + + | Home Phone | | + + + | Preferred Language | Unknown | + + + | Marital Status | | + + + | Jehovah'S Witness Affiliation | 1013 | + + + | Race | Unknown | + + + | Ethnic Group | Unknown | + + + Author + + + | Author | [facility] | | | and [place] | + + + | Organization | [facility] | | | and [place] | + + + | Address | Unknown | + + + | Phone | Unavailable | + + + Support + + +---------+ + | Name | Relationship | Address | Phone | + + +---------+ + | Maria Isabel Gay | ECON | Unknown | | + + +---------+ + Care Team Providers + +------+ + | Care Dam Operator Name | Role | Phone | + +------+ + | Kirk French MD | PCP | | + +------+ + Encounter Details +--------+ + + + + | Date | Type | Department | Care Team | Description | +--------+ + + + + | 12/23/ | Emergency | [facility] | Cristal Alexander, | Chronic neck pain; | | 2015 | | [facility]ENTER | DO [address] | Headache(784.0) | | | | EMERGENCY CENTER | [place] [address] | | | | | [address] | [phone] | | | | | [place], [place] | | | | | | [address] | | | | | | [phone] | | | +--------+ + + + [...] + + + +---------+ + + | Winside-3 Fatty | CAPS, one capsule by | [...] +---------+ + + | LORazepam (ATIVAN) | /2 to 1 tab up to | 20 [...] tablet by | 30 | 6 | 12/06/19 | | | (PROTONIX) 40 mg | mouth Daily. | tablet | | 15 | 5 [...] | | | | | | | #[id number], exp 07/2016 | | | | | [...] | 2018 | Monitor | | [address] | Interrogation | | | | | [place], | (Primary Dx); | | | | | [place] [address] | Presence of | | | | | [phone] | permanent cardiac | | | | [...] 2018 | Monitor | | [address] | Interrogation | | | | | [place], | (Primary Dx); | | | | | [place] [address] | Presence of | | | | | [phone] | permanent cardiac | | | | | | pacemaker; | | | | | | Sinoatrial node | | | | | | dysfunction (HCC) | | | | | | with symptomatic | | | | | | bradycardia | +--------+ + + + + | 01/01/ | Office | Cardiology | Silvia, | | | 2019 | Visit | | APRISA Vernon [address] | | | | | | [place], | | | | | | [place] [address] | | | | | | [phone] | | | | | | | | +--------+ + + + + documented as of this encounter Procedures + +--------+ + + + | Procedure Name | Priori | Date/Time | Associated Diagnosis | Comments | | | ty | | | | + +--------+ + + + | CT CERVICAL SPINE WO | Routin | 12/23/2014 | | Results for this | | CONTRAST | e | 6:04 PM | | procedure are in the | | | | PST | | results section. | + +--------+ + + + documented in this encounter Results CT Cervical Spine wo Contrast (12/23/2014 6:04 PM PST) + + | Specimen | + + | | + + + + + | Impressions | Performed At | + + + | 1. Noncontrast CT cervical spine exam shows no evidence of | | | fracture or subluxation. 2. Intact postoperative changes with | | | cervical fusion extending from C5-T1. | | + + + + + + | Narrative | Performed At | + + + | [facility] [address] CERVICAL SPINE WO | | | CONTRAST 12/23/2014 6:04 PM HISTORY: Neck pain TECHNIQUE: Axial | | | 1.25-mm images of the cervical spine were acquired from the lower | | | posterior fossa through the upper thoracic spine and reconstructed in | | | coronal and sagittal planes. COMPARISON: CT, 05/11/14 FINDINGS: | | | Minimal motion artifact is noted on this scan. Postsurgical changes | | | are demonstrated from articular mass fixation of the cervical spine | | | from C6-T1. No abnormal lucency surrounds the fixation hardware. The | | | metallic vertical struts are intact. The patient is status post a | | | anterior cervical disc fusion. A slight bend within the plate is again | | | noted. The fusion is mature anteriorly from C5-C7. The craniocervical | | | junction is maintained. There is no epidural or prevertebral fluid. | | | There is a subtle reversal of the normal cervical spine lordosis | | | which may be positional in nature. Vertebral body heights are | | | maintained. The base of the odontoid is intact. The lung apices are | | | normal in appearance. There is no adenopathy along the neck base. | | + + + + + | Procedure Note | + + | Kevin, Rad Conversion - 07/07/2019 5:05 AM PDT [id number] years MaleCT | | CERVICAL SPINE WO CONTRAST12/23/2014 6:04 PM HISTORY: Neck pain TECHNIQUE: Axial 1.25-mm | | images of the cervical spine were acquired from the lower posterior fossa through the | | upper thoracic spine and reconstructed in coronal and sagittal planes. COMPARISON: CT, | | 05/11/14 FINDINGS: Minimal motion artifact is noted on this scan. Postsurgical changes | | are demonstrated from articular mass fixation of the cervical spine from C6-T1. No | | abnormal lucency surrounds the fixation hardware. The metallic vertical struts are | | intact. The patient is status post a anterior cervical disc fusion. A slight bend within | | the plate is again noted. The fusion is mature anteriorly from C5-C7. The | | craniocervical junction is maintained. There is no epidural or prevertebral fluid. There | | is a subtle reversal of the normal cervical spine lordosis which may be positional in | | nature. Vertebral body heights are maintained. The base of the odontoid is intact. The | | lung apices are normal in appearance. There is no adenopathy along the neck base. | | IMPRESSION: 1. Noncontrast CT cervical spine exam shows no evidence of fracture or | | subluxation.2. Intact postoperative changes with cervical fusion extending from C5-T1. | | | |is no adenopathy along the neck | | base. | | | |IMPRESSION: | |1. Noncontrast CT cervical spine exam shows no evidence of fracture or subluxation. | |2. Intact postoperative changes with cervical fusion extending from C5-T1. | | | | | + + documented in this encounter Visit Diagnoses + + | Diagnosis | + + | Chronic neck pain Cervicalgia | + + | Headache(784.0) Headache | + + documented in this encounter"
--- OUTSIDE RECORDS SUMMARY | ~2019-11-16 | XMS | Encounter Summary ---
Demographics + + + | Address | [address] | | | [place] [address] | + + + | Home Phone | | + + + | Preferred Language | Unknown | + + + | Marital Status | | + + + | Jainism Affiliation | 1013 | + + + [...] Team Providers + +------+ + | Care Electric Motor Winders Assembler Name | Role | Phone | + +------+ + | Kirk French MD | PCP | | + +------+ + Reason for Visit + + + | Reason | Comments | + + + | Results, Pathology | egd,colon | + + + Encounter Details +--------+ + + + + | Date | Type | Department | Care Team | Description | +--------+ + + + + | 01/03/ | Telephone | [facility] | Emmanuel Daniel MD | Results, Pathology | | 2018 | | GASTROENTEROLOGY | [address], [place] | (egd,colon) | | | | [address] [place] | [address] [place], [place] | | | | | [address] [place], [place] | [address] | | | | | [address] | | | | | | [phone] | | | +--------+ + + + [...] | Monitor | | MD [address] | Interrogation | | | | | [place], | (Primary Dx); | | | | | [place] [address] | Presence of | | | | | [phone] | permanent cardiac | | | | [...] | Monitor | | MD [address] | Interrogation | | | | | [facility], | (Primary Dx); | | | | | [place] [address] | Presence of | | | | | [phone] | permanent cardiac | | | | [...] | | | | | | [place] [address] | | | | | | [phone] | | | | | | | | +--------+ + + + + documented as of this encounter Visit Diagnoses Not on filedocumented in this encounter"
--- OUTSIDE RECORDS SUMMARY | ~2019-11-16 | XMS | Encounter Summary ---
Demographics + + + | Address | [address] | | | [place] [address] | + + + | Home Phone | | + + + | Preferred Language | Unknown | + + + | Marital Status | | + + + | Jehovah'S Witness Affiliation | 1013 | + + + | Race | Unknown | + + + | Ethnic Group | Unknown | + + + Author + + + | Author | [facility] | | | and [place] | + + + | Organization | [facility] | | | [...] Team Providers + +------+ + | Care Stratigrapher Name | Role | Phone | + +------+ + PCP | Unavailable | + +------+ + Encounter Details +--------+ + + + + | Date | Type | Department | Care Team | Description | +--------+ + + + + | 10/26/ | Hospital | [facility] | | | | 1994 | Encounter | [facility] | | | | | | CENTER [address] | | | | | | [place] | | | | | | [address] | | | | | | [phone] | | | +--------+ + + + [...] | 2019 | Monitor | | [address] [facility] | Interrogation | | | | | [facility] [place], | (Primary Dx); | | | | | [place] [address] | Presence of | | | | | [phone] | permanent cardiac | | | | [...] | | [address] [facility] | Interrogation | | | | | [address] [place], | (Primary Dx); | | | | | [place] [address] | Presence of | | | | | [phone] | permanent cardiac | | | | [...] W | | | | | | [place], | | | | | | [place] [address] | | | | | | [phone] | | | | | | | | +--------+ + + + + documented as of this encounter Visit Diagnoses Not on filedocumented in this encounter"
--- OUTSIDE RECORDS SUMMARY | ~2019-11-16 | XMS | Encounter Summary ---
Demographics + + + | Address | [address] | | | [place] [address] | + + + | Home Phone | | + + + | Preferred Language | Unknown | + + + | Marital Status | | + + + | Spiritism Affiliation | 1013 | + + + [...] Team Providers + +------+ + | Care Document Control Manager Name | Role | Phone | + +------+ + | Michael Amanda DO | PCP | | + +------+ + Reason for Visit + + + | Reason | Comments | + + + | Device Check | | + + + Encounter Details +--------+---------+ + + + | Date | Type | Department | Care Team | Description | +--------+---------+ + + + | 12/21/ | Office | [facility] [place] | Hellberg, Geri, | Bradycardia (Primary | | 2012 | Visit | CARDIOLOGY [address] | DAIRY CLERK [address] [place] | Dx) | | | | [place], | [place], [place] | | | | | [place] [address] | [address] | | | | | [phone] | | | +--------+---------+ + + + [...] +---+---+---+ + + | Comments: 1 cigar weekly [...] documented as of this encounter Progress Notes Geri Anegl ARNP - 12/21/2012 11:51 AM PSTFormatting of this note might be different fr om the original. This note is device interrogation only, full progress note done by Daljit Singletary MD for office visit of this same date. PACEMAKER / ICD PARAMETERS Name: Moe Sanchez Date: December 21, 2012 : 1960 Top Cutter: PARISA Velazquez Device Sand Mill Operator Core Sand: Medtronic Sense (mV) Impedance (?) Capture (V) Capture (ms) A Lead 4-5.6 423 1.5 0.09 RV Lead >31.36 539 2.0 0.09 LV Lead Battery Impedance (?): 301 Battery Voltage (V): 2.8 NE Interval (ms): 140 AR Interval (ms): 210 VA Conduction: Mode Switch Events: N/A % of time: -PRINT SUPPORT SPECIALIST: 0.6 AP-PRINT SUPPORT SPECIALIST: 1.3 -VS: 23.9 AP-VS: 74.2 PRINT SUPPORT SPECIALIST: Magnetic Rate: 85 LINDA: 65 LEAH: Current Underlying Rhythm: Sinus rhythm with rate 92 beats per minute Mode: AAIR-DDDR AMS (bpm): off Rate (bpm): 70 Sensor (on/off): on Max Track (bpm): 130 Upper Sensor Rate (bpm): 130 Hysteresis: Paced AV Delay (ms): 150 Circadian: Sensed AV Delay (ms): 120 PVARP (ms): 310 Sensitivity (mV) Pulse Amplitude (V) Pulse Width (ms) A Lead 0.7 1.5 0.4 RV Lead 5.6 2.0 0.4 LV Lead Comments: Events: None. Single PVCs: 288,344. PVC runs: 1.030. PAC runs: 14. Heart rate histogram shows excellent distribution. Normal and stable device function. Estimated remaining device longevity is 8.5 years. documented in this e ncounter Plan of Treatment +--------+ + + + + | Date | Type | Specialty | Care Team | Description | +--------+ + + + + | 11/20/ | Implant | Cardiology | Dalijt Singletary, | Remote Device | | 2019 | Monitor | | [address] [facility] | Interrogation | | | | | [facility] [place], | (Primary Dx); | | | | | [place] [address] | Presence of | | | | | [phone] | permanent cardiac | | | | [...] Interrogation | | | | | [facility], | (Primary Dx); | | | | | [place] [address] | Presence of | | | | | [phone] | permanent cardiac | | | | [...] W | | | | | | [place], | | | | | | [place] [address] | | | | | | [phone] | | | | | | | | +--------+ + + + + + + +--------+ + + | Name | Type | Priori | Associated Diagnoses | Order Schedule | | | | ty | | | + + +--------+ + + | Device Interrogation | Cardiac | Routin | Bradycardia | Ordered: 12/21/2012 | | | Implant | e | | | + + +--------+ + + documented as of this encounter Visit Diagnoses + + | Diagnosis | + + | Bradycardia - Primary Other specified cardiac dysrhythmias | + + documented in this encounter"
--- OUTSIDE RECORDS SUMMARY | ~2019-11-16 | XMS | Encounter Summary ---
Demographics + + + | Address | [address] | | | [place] [address] | + + + | Home Phone | | + + + | Preferred Language | Unknown | + + + | Marital Status | | + + + | Yazidism Affiliation | 1013 | + + + [...] Team Providers + +------+ + | Care Pitch Flaker Name | Role | Phone | + +------+ + | Michael Amanda DO | PCP | | + +------+ + Encounter Details +--------+ + + + + | Date | Type | Department | Care Team | Description | +--------+ + + + + | 01/31/ | Hospital | [facility] | Adrian Gutierrez MD | | | 2012 | Encounter | [facility] | [address] | | | | | EMERGENCY CENTER | [place], [place] | | | | | [address] | [address] | | | | | [place] | [phone] | | | | | [address] | | | | | | [phone] | | | +--------+ + + + [...] | 0 | 04/18/20 | | | tablet | Daily. | | | 12 | | + + + +---------+ + + | diphenhydrAMINE | Take 25 mg by mouth | | 0 | 04/18/20 | | | (BENADRYL) 25 MG | as needed. | | | 12 | | | capsule | | | | | | + + + +---------+ + + | [place]-3 Fatty | CAPS, one capsule by | [...] Dx); | | | | | [place] [address] | Presence of | | | | | [phone] | permanent cardiac | | | | [...] (Primary Dx); | | | | | [place] [address] | Presence of | | | | | [phone] | permanent cardiac | | | | [...] W | | | | | | [place], | | | | | | [place] [address] | | | | | | [phone] | | | | | | | | +--------+ + + + + documented as of this encounter Procedures + +--------+ + + + | Procedure Name | Priori | Date/Time | Associated Diagnosis | Comments | | | ty | | | | + +--------+ + + + | XR CHEST 2 VIEWS | | 01/31/2013 | | Results for this | | | | 10:06 PM | | procedure are in the | | | | PDT | | results section. | + +--------+ + + + | EXTRA HOLD TUBE(S) | Routin | 01/31/2013 | | Results for this | | | e | 10:00 PM | | procedure are in the | | | | PDT | | results section. | + +--------+ + + + | TROPONIN I | Routin | 01/31/2013 | | Results for this | | | e | 10:00 PM | | procedure are in the | | | | PDT | | results section. | + +--------+ + + + | CK-MB | Routin | 01/31/2013 | | Results for this | | | e | 10:00 PM | | procedure are in the | | | | PDT | | results section. | + +--------+ + + + | MYOGLOBIN | Routin | 01/31/2013 | | Results for this | | | e | 10:00 PM | | procedure are in the | | | | PDT | | results section. | + +--------+ + + + | BASIC METABOLIC | Routin | 01/31/2013 | | Results for this | | PANEL | e | 10:00 PM | | procedure are in the | | | | PDT | | results section. | + +--------+ + + + documented in this encounter Results XR Chest 2 VW (01/31/2013 10:06 PM PDT) + + | Specimen | + + | | + + + + + | Narrative | Performed At | + + + | Exam Performed Location: [facility] TWO-VIEW | MISCELANIOUS | | CHEST CLINICAL INFORMATION: Shortness of breath. COMPARISON: | LAB | | None. FINDINGS: There is a left subclavian dual lead cardiac | | | pacer. The heart size and mediastinal contours are normal. The | | | pulmonary vasculature is normal. No focal airspace opacities, | | | pleural effusions, or pneumothorax. Cervical fusion hardware is | | | noted. No acute osseous findings. IMPRESSION: No evidence of | | | an acute cardiopulmonary process. S: SQ ([id number]) Signed by: | | | JAYNE SPEAR MD | | + + + + + | Procedure Note | + + | Kevin, Rad Conversion - 09/13/2013 10:25 PM PDT Exam Performed Location: [facility] | | at [facility] Heart[facility]-VIEW CHESTCLINICAL INFORMATION:Shortness of | | breath.COMPARISON:None.FINDINGS:There is a left subclavian dual lead cardiac pacer. The | | heart sizeand mediastinal contours are normal. The pulmonary vasculature isnormal. No | | focal airspace opacities, pleural effusions, orpneumothorax. Cervical fusion hardware | | is noted. No acute osseousfindings.IMPRESSION:No evidence of an acute cardiopulmonary | | process.S: SQ ([id number]) Signed by: JAYNE SPEAR MD | |COMPARISON: | |None. | | | |FINDINGS: | |There is a left subclavian dual lead cardiac pacer. The heart size | |and mediastinal contours are normal. The pulmonary vasculature is | |normal. No focal airspace opacities, pleural effusions, or | |pneumothorax. Cervical fusion hardware is noted. No acute osseous | |findings. | | | |IMPRESSION: | |No evidence of an acute cardiopulmonary process. | | | | | |S: SQ ([id number]) Signed by: AJYNE SPEAR MD | + + + +---------+ + + | Performing | Address | City/State/Zipcode | Phone Number | | Organization | | | | + +---------+ + + | [facility] | | | [phone] | + +---------+ + + | MISCELANIOUS LAB | | | [phone] | + +---------+ + + Troponin I (01/31/2013 10:00 PM PDT) + +-------+ + + + | Component | Value | Ref Range | Performed | Pathologist | | | | | At | Signature | + +-------+ + + + | Troponin I | 0.26 | 0.00 - 0.29 | [facility] | | | | | ng/mL | [facility] | | | | | [...] + | [facility] | [address] | [place] [address] | | | [facility] | | | | | LABORATORY | | | | + + + + + | [facility] | | | | | [facility] | | | | | LABORATORY | | | | + + + + + Myoglobin (01/31/2013 10:00 PM PDT) + +-------+ + + + | Component | Value | Ref Range | Performed | Pathologist | | | | | At | Signature | + +-------+ + + + | MYOGLOBIN, | 34 | <110 ng/mL | [facility] | | | SER[facility] | | | [facility] | | | [...] + + | [facility] | [address] | [place] [address] | | | [facility] | | | | | LABORATORY | | | | + + + + + | [facility] | | | | | [facility] | | | | | LABORATORY | | | | + + + + + Extra Hold Tube(s) (01/31/2013 10:00 PM PDT) + + + + + + | Component | Value | Ref Range | Performed | Pathologist | | | | | At | Signature | + + + + + + | Extra Tube | RED,LAV,BLUE | | [facility] | | | | [...] + + | [facility] | [address] [place] | [place] [address] | | | [facility] | | | | | LABORATORY | | | | + + + + + | [facility] | | | | | [facility] | | | | | LABORATORY | | | | + + + + + CK-MB (01/31/2013 10:00 PM PDT) + + + + + + | Component | Value | Ref Range | Performed | Pathologist | | | | | At | Signature | + + + + + + | CK TOTAL | 115 | 55 - 400 U/L | [facility] | [facility] | | | | | | [facility] | | | | | | [facility] | | | | | | LABORATORY | | + + + + + + | CK-MB | 2.8 | <7.5 ng/mL | [facility] | | | | | [facility] | | | | | | [facility] | | | | | | [facility] | | | | | | LABORATORY | | + + + + + + | CK Index | Not Indicated | <3.1 % | [facility] | | | | [...] + + | [facility] | [address] | [place] [address] | | | [facility] | | | | | LABORATORY | | | | + + + + + | [facility] | | | | | [facility] | | | | | LABORATORY | | | | + + + + + Basic Metabolic Panel (01/31/2013 10:00 PM PDT) + + + + + + | Component | Value | Ref Range | Performed | Pathologist | | | | | At | Signature | + + + + + + | Na | 137 | 135 - 145 | [facility] | | | | | mmol/L | [facility] | | | | | | [facility] | | | | | | [facility] | | | | | | CENTER | | | | | | LABORATORY | | + + + + + + | K | 3.4 (L) | 3.5 - 5.0 | [facility] | | | | | mmol/L | [facility] | | | | | [facility] | | | | | | [facility] | | | | | | CENTER | | | | | | LABORATORY | | + + + + + + | Cl | 105 | 99 - 109 mmol/L | [facility] | | | [facility] | | | | | | [facility] | | | | | | [facility] | | | | | | [facility]ENTER | | | | | | LABORATORY | | + + + + + + | CO2 | 25 | 21 - 28 mmol/L | [facility] | | [facility] | | [facility] | | | | | | [facility] | | | | | | CENTER | | | | | | LABORATORY | | + + + + + + | Glucose | 154 (H)Comment: South African | 65 - 99 mg/dL | [facility] [...] + + + + | BUN | 14 | 8 - 25 mg/dL | [facility] | [facility] | | | | | [facility] | | | | | | [facility] | | | | | | [facility]ENTER | | | | | | LABORATORY | | + + + + + + | Creatinine | 0.90Comment: IDMS | 0.70 - 1.30 | [facility] | | | | traceable creatinine | mg/dL | [facility] | | | | | | [facility] | | | | | | MEDICAL | | | | | | CENTER | | | | | | LABORATORY | | + + + + + + | Calcium | 9.1 | 8.5 - 10.2 | [facility] | [...] + + | [facility] | [address] | [place] [address] | | | [facility] | | | | | LABORATORY | | | | + + + + + | [facility] | | | | | [facility] | | | | | LABORATORY | | | | + + + + + documented in this encounter Visit Diagnoses Not on filedocumented in this encounter"
--- OUTSIDE RECORDS SUMMARY | ~2019-11-16 | XMS | Encounter Summary ---
Demographics + + + | Address | [address] | | | [place] [address] | + + + | Home Phone | | + + + | Preferred Language | Unknown | + + + | Marital Status | | + + + | Latter-Day Affiliation | 1013 | + + + | Race | Unknown | + + + | Ethnic Group | Unknown | + + + Author + + + | Author | [facility] | | | and [place] | + + + | Organization | [facility] | | | and [...] Team Providers + +------+ + | Care Carbon Cutter Name | Role | Phone | [...] | | | | | [address] | | | | | | [address] [place] | | | | | | [address] | | | | | | [phone] | | | +--------+ + + + [...] | Monitor | | MD [address] | Interrogation | | | | | [place], | (Primary Dx); | | | | | [place] [address] | Presence of | | | | | [phone] | permanent cardiac | | | | [...] | Monitor | | MD [address] | Interrogation | | | | | [place], | (Primary Dx); | | | | | [place] [address] | Presence of | | | | | [phone] | permanent cardiac | | | | [...] [place], | | | | | | [place] [address] | | | | | | [phone] | | | | | | | | +--------+ + + + + documented as of this encounter Visit Diagnoses Not on filedocumented in this encounter"
--- OUTSIDE RECORDS SUMMARY | ~2019-11-16 | XMS | Encounter Summary ---
Demographics + + + | Address | [address] | | | [place] [address] | + + + | Home Phone | | + + + | Preferred Language | Unknown | + + + | Marital Status | | + + + | Adventist Affiliation | 1013 | + + + | Race | Unknown | + + + | Ethnic Group | Unknown | + + + Author + + + | Author | [facility] | | | and [place] | + + + | Organization | [facility] | | | and [place] | + + + | Address | Unknown | + + + | Phone | Unavailable | + + + Support + + +---------+ + | Name | Relationship | Address | Phone | + + +---------+ + | Maria Isabel Sanhcez | ECON | Unknown | | + + +---------+ + Care Team Providers + +------+ + | Care Television Engineering Teacher Name | Role | Phone | [...] Description | +--------+--------+ + + + | 06/28/ | Refill | [facility] | Michael Amanda, | Medication Refill | | 2012 | | [facility] [place] | DO [address] | | | | | [address] | [place] | | | | | [place] | [address] | | | | | [address] | | | | | | [phone] | | | +--------+--------+ + + + [...] | Monitor | | MD [address] | Interrogation | | | | | [place], | (Primary Dx); | | | | | [place] [id number] | Presence of | | | | | [phone] | permanent cardiac | | | | [...] | Monitor | | MD [address] | Interrogation | | | | | [place], | (Primary Dx); | | | | | [place] [id number] | Presence of | | | | | [phone] | permanent cardiac | | | | [...] [place], | | | | | | [place] [address] | | | | | | [phone] | | | | | | | | +--------+ + + + + documented as of this encounter Visit Diagnoses Not on filedocumented in this encounter"
--- OUTSIDE RECORDS SUMMARY | ~2019-11-16 | XMS | Encounter Summary ---
Demographics + + + | Address | [address] | | | [place] [address] | + + + | Home Phone | | + + + | Preferred Language | Unknown | + + + | Marital Status | | + + + | Buddhist Affiliation | 1013 | + + + | Race | Unknown | + + + | Ethnic Group | Unknown | + + + Author + + + | Author | [facility] | | | and [place] | + + + | Organization | [facility] | | [...] Team Providers + +------+ + | Care Trekking Guide Name | Role | Phone | + [...] | +--------+ + + + + | 05/26/ | Emergency | [facility] | Lizbeth Green | Atypical chest pain | | 2013 | | [facility] | DO Nicole Fink | (Primary Dx); | | | | CENTER [address] | [place], [place] | Anxiety | | | | [place], [place] | [address] | | | | | [address] | | | | | | [phone] | | | +--------+ + + + [...] + + + | Blood Pressure | 130/93 | 05/26/2014 6:14 PM | | | | | PDT | | + + + + + | Pulse | 77 | 05/26/2014 6:20 PM | | | | | PDT | | + + + + + | Temperature | 37.5 C (99.5 F) | 05/26/2014 2:11 PM | | | | | PDT | | + + + + + | Respiratory Rate | 22 | 05/26/2014 6:20 PM | | | | | PDT | | + + + + + | Oxygen Saturation | 97% | 05/26/2014 6:20 PM | | | | | PDT | | + + + + + | Inhaled Oxygen | - | - | | | Concentration | | | | + + + + + | Weight | - | - | | + + + + + | Height | 193 cm (6' 4") | 05/26/2014 2:11 PM | | | | | PDT | | + + + + + | Body Mass Index | - | - | | + + + + + documented in this encounter Discharge Instructions Lizbeth Nguyễn MD - 05/26/2014Home and rest Continue current meds Keep BP controlled documented in this encounter Medications at Time [...] mg by mouth | | 0 | 18/20 | | | tablet | Daily. | [...] + + + +---------+ + + | Watrous-3 Fatty | CAPS, one capsule by | | 0 | /18/20 | | | Acids (SALMON | mouth [...] 2018 | Monitor | | MD [address] [facility] | Interrogation | | | | | [place], | (Primary Dx); | | | | | [place] [address] | Presence of | | | | | [phone] | permanent cardiac | | | | [...] 2018 | Monitor | | MD [address] [facility] | Interrogation | | | | | [place], | (Primary Dx); | | | | | [place] [address] | Presence of | | | | | [phone] | permanent cardiac | | | | [...] [address] | | | | | | [address] [place], | | | | | | [place] [address] | | | | | | [phone] | | | | | | | | +--------+ + + + + documented as of this encounter Procedures + +--------+ + + + | Procedure Name | Priori | Date/Time | Associated Diagnosis | Comments | | | ty | | | | + +--------+ + + + | CT ANGIOGRAM CHEST W | STAT | 05/26/2014 | | Results for this | | CONTRAST | | 5:28 PM | | procedure are in the | | | | PDT | | results section. | + +--------+ + + + | TROPONIN I | STAT | 05/26/2014 | | Results for this | | | | 3:43 PM | | procedure are in the | | | | PDT | | results section. | + +--------+ + + + | CBC WITH | STAT | 05/26/2014 | | Results for this | | DIFFERENTIAL | | 3:43 PM | | procedure are in the | | | | PDT | | results section. | + +--------+ + + + | COMPREHENSIVE | STAT | 05/26/2014 | | Results for this | | METABOLIC PANEL | | 3:43 PM | | procedure are in the | | | | PDT | | results section. | + +--------+ + + + documented in this encounter Results CT Angiogram Chest W Contrast (05/26/2014 5:28 PM PDT) + + | Specimen | + + | | + + + + + | Narrative | Performed At | + + + | CT ANGIOGRAM CHEST W CONTRAST /CT THORACIC AND ABDOMINAL AORTIC | [facility] | | ANGIOGRAM 05/26/2014 5:17 PM HISTORY: CHEST PAIN . | LAB | | Patient with reported ascending aortic aneurysm COMPARISON: CT | | | chest 06/12/2008 TECHNIQUE: Axial images were obtained from just | | | above to just below the level of the thoracic aorta following the | | | uneventful IV administration of 80 mL Omnipaque 350 contrast. | | | Timing of contrast bolus was optimized for evaluation of both the | | | systemic arterial and pulmonary arterial systems . Multiplanar | | | reformatted images and 3-D MIP and MPR images were created. | | | FINDINGS: There is a tricuspid aortic valve. The maximum diameter of | | | the sinuses of Valsalva is 3.9 cm. (Normal 2.9-4.0 cm) The maximum | | | diameter at the sinotubular junction is 3.4 cm. The mid ascending | | | aorta measures 3.9 cm in maximal diameter. The proximal aortic arch | | | at the origin of the brachiocephalic artery measures 3.7 cm in | | | maximal diameter. The mid aortic arch between the left common | | | carotid and left subclavian arteries measures 3.0 cm. The proximal | | | descending thoracic aorta measures 2.8 cm in maximal diameter. The | | | mid descending aorta measures 2.2 cm in maximal diameter. The aorta | | | at the diaphragm measures 2.0 cm in maximal diameter. The abdominal | | | aorta at the celiac axis origin measures 2.0 cm in maximal diameter. | | | The pulmonary artery measures 3.0 cm in diameter. No filling defect | | | to suggest pulmonary embolism The abdominal aorta is normal in | | | caliber throughout its course. The celiac axis and branching vessels | | | are within normal limits. The superior mesenteric artery and | | | branching vessels are within normal limits. Right renal artery is | | | within normal limits. 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 Inferior mesenteric | | | artery is well seen and is normal in appearance. Minimal scattered | | | calcification is seen in the abdominal aorta, with minimal | | | calcification seen in the common iliac arteries bilaterally. No | | | evidence of aortic dissection. Cardiac pacing wires extending into | | | the right heart. Suggestion of left ventricular wall thickening. | | | Scattered coronary artery calcification. No pericardial effusion. | | | No pathologically enlarged mediastinal lymph nodes are | | | evident. The visualized portions of the trachea is within normal | | | limits. The visualized portions of the esophagus is within normal | | | limits. Minimal atelectasis in the dependent portions of the lung | | | bases . Lungs are otherwise clear, without pulmonary nodule or | | | other abnormal opacification. No pleural effusion or pneumothorax is | | | seen. The liver, gallbladder, pancreas, spleen, and bilateral | | | adrenal glands are within normal limits. Bilateral kidneys are | | | within normal limits, without evidence of stone or hydronephrosis. | | | The visualized portions of the ureters are unremarkable. The stomach, | | | duodenum, and visualized portions of the small bowel are within | | | normal limits. The visualized portions of the colon are unremarkable. | | | Ileocecal junction is within normal limits. The appendix is | | | surgically absent. No free intraperitoneal air or fluid. No | | | pathologically enlarged abdominal lymph nodes. Posterior spinal | | | fusion hardware incompletely visualized. There is mild degenerative | | | disc disease. No overt lytic or blastic lesions old, healed | | | fracture of the right posterior lateral 10th rib. There is a | | | fat-containing umbilical hernia, noninflamed. Visualized subcutaneous | | | tissues and muscles are otherwise within normal limits. | | | IMPRESSION - Aneurysmal dilation of the ascending aorta measuring up | | | to 3.9 cm in diameter at the level of the right pulmonary artery. No | | | evidence of dissection or periaortic fluid collection. No filling | | | defects in the pulmonary arterial system to suggest pulmonary | | | embolism. Dictated and Signed by: Kenneth Kline MD | | | Electronically signed: 05/27/2014 3:06 PM | | + + + + + | Procedure Note | + + | Kevin, Rad Results In - 05/27/2014 3:[address] ANGIOGRAM CHEST W CONTRAST /CT | | THORACIC AND ABDOMINAL AORTIC ANGIOGRAM05/26/2014 5:17 PMHISTORY: CHEST PAIN . | | Patient with reported ascending aortic aneurysmCOMPARISON: CT chest 06/12/2008TECHNIQUE: | | Axial images were obtained from just above to just below the level ofthe thoracic aorta | | following the uneventful IV administration of 80 mL Atgiezcry860 contrast. Timing of | | contrast bolus was optimized for evaluation of both thesystemic arterial and pulmonary | | arterial systems . Multiplanar reformattedimages and 3-D MIP and MPR images were | | created.FINDINGS:There is a tricuspid aortic valve.The maximum diameter of the sinuses | | of Valsalva is 3.9 cm. (Normal 2.9-4.0 cm)The maximum diameter at the sinotubular | | junction is 3.4 cm.The mid ascending aorta measures 3.9 cm in maximal diameter.The | | proximal aortic arch at the origin of the brachiocephalic artery measures3.7 cm in | | maximal diameter. The mid aortic arch between the left common carotid and left | | subclavian arteriesmeasures 3.0 cm.The proximal descending thoracic aorta measures 2.8 | | cm in maximal diameter.The mid descending aorta measures 2.2 cm in maximal diameter.The | | aorta at the diaphragm measures 2.0 cm in maximal diameter.The abdominal aorta at the | | celiac axis origin measures 2.0 cm in maximaldiameter.The pulmonary artery measures 3.0 | | cm in diameter. No filling defect to suggestpulmonary embolismThe abdominal aorta is | | normal in caliber throughout its course.The celiac axis and branching vessels are within | | normal limits.The superior mesenteric artery and branching vessels are within normal | | limits.Right renal artery is within normal limits. There is a duplicated left | | renalartery, with the largest of the renal arteries supplying the superior and midpole | | of the left kidney, with an additional left renal artery supplying theinferior pole of | | the left kidney.Inferior mesenteric artery is well seen and is normal in | | appearance.Minimal scattered calcification is seen in the abdominal aorta, with | | minimalcalcification seen in the common iliac arteries bilaterally.No evidence of aortic | | dissection.Cardiac pacing wires extending into the right heart. Suggestion of | | leftventricular wall thickening. Scattered coronary artery calcification. | | Nopericardial effusion. No pathologically enlarged mediastinal lymph nodes are | | evident.The visualized portions of the trachea is within normal limits.The visualized | | portions of the esophagus is within normal limits.Minimal atelectasis in the dependent | | portions of the lung bases . Lungs areotherwise clear, without pulmonary nodule or | | other abnormal opacification.No pleural effusion or pneumothorax is seen.The liver, | | gallbladder, pancreas, spleen, and bilateral adrenal glands arewithin normal | | limits.Bilateral kidneys are within normal limits, without evidence of stone | | orhydronephrosis.The visualized portions of the ureters are unremarkable.The stomach, | | duodenum, and visualized portions of the small bowel are withinnormal limits.The | | visualized portions of the colon are unremarkable. Ileocecal junction iswithin normal | | limits. The appendix is surgically absent.No free intraperitoneal air or fluid. No | | pathologically enlarged abdominallymph nodes.Posterior spinal fusion hardware | | incompletely visualized. There is milddegenerative disc disease. No overt lytic or | | blastic lesions old, healedfracture of the right posterior lateral 10th rib.There is a | | fat-containing umbilical hernia, noninflamed. Visualized subcutaneoustissues and muscles | | are otherwise within normal limits.IMPRESSION -Aneurysmal dilation of the ascending | | aorta measuring up to 3.9 cm in diameter atthe level of the right pulmonary artery.No | | evidence of dissection or periaortic fluid collection.No filling defects in the | | pulmonary arterial system to suggest pulmonaryembolism.Dictated and Signed by: Kenneth | | MD Eliud Electronically signed: 05/27/2014 3:06 PM | | | |No pathologically enlarged mediastinal lymph nodes are evident. | |The visualized portions of the trachea is within normal limits. | |The visualized portions of the esophagus is within normal limits. | | | |Minimal atelectasis in the dependent portions of the lung bases . Lungs are | |otherwise clear, without pulmonary nodule or other abnormal opacification. | |No pleural effusion or pneumothorax is seen. | | | |The liver, gallbladder, pancreas, spleen, and bilateral adrenal glands are | |within normal limits. | |Bilateral kidneys are within normal limits, without evidence of stone or | |hydronephrosis. | |The visualized portions of the ureters are unremarkable. | |The stomach, duodenum, and visualized portions of the small bowel are within | |normal limits. | |The visualized portions of the colon are unremarkable. Ileocecal junction is | |within normal limits. The appendix is surgically absent. | |No free intraperitoneal air or fluid. No pathologically enlarged abdominal | |lymph nodes. | | | |Posterior spinal fusion hardware incompletely visualized. There is mild | |degenerative disc disease. No overt lytic or blastic lesions old, healed | |fracture of the right posterior lateral 10th rib. | |There is a fat-containing umbilical hernia, noninflamed. Visualized subcutaneous | |tissues and muscles are otherwise within normal limits. | | | |IMPRESSION - | |Aneurysmal dilation of the ascending aorta measuring up to 3.9 cm in diameter at | |the level of the right pulmonary artery. | |No evidence of dissection or periaortic fluid collection. | |No filling defects in the pulmonary arterial system to suggest pulmonary | |embolism. | | | |Dictated and Signed by: Kenneth Kline MD | | Electronically signed: 05/27/2014 3:06 PM | + + + +---------+ + + | Performing | Address | City/State/Zipcode | Phone Number | | Organization | | | | + +---------+ + + | [facility] | | | [phone] | + +---------+ + + | [facility] | | | [phone] | + +---------+ + + Troponin I (05/26/2014 3:43 PM PDT) + + + + + + | Component | Value | Ref Range | Performed | Pathologist | | | | | At | Signature | + + + + + + | Troponin I | 0.01Comment: Reference | <0.06 ng/mL | [facility] | [...] | | | | | | [employer] | | | | | [...] [address] | [place] | [phone] | | [facility] | | [address] | | | - LABORATORY | | | | + + + + + | [facility] | [address] | [place] | | | [facility] | | [address] | | | - LABORATORY | | | | + + + + + Comprehensive Metabolic Panel (05/26/2014 3:43 PM PDT) + + + + + + | Component | Value | Ref Range | Performed | Pathologist | | | | | At | Signature | + + + + + + | Na | 140 | 136 - 149 | [facility] | | | | | mmol/L | [facility] | | | | | | [facility] | | | | | | CENTER - | | | | | | LABORATORY | | + + + + + + | K | 3.6 | 3.5 - 5.1 | [facility] | | | | | mmol/L | [facility] | | | | | | [facility] | | | | | | CENTER - | | | | | | LABORATORY | | + + + + + + | Cl | 107 | 98 - 109 mmol/L | [facility] [...] + | Anion Gap | 11 | 3 - 16 mmol/L | [facility] [...] + + | BUN | 12 | 7 - 18 mg/dL | [facility] | | | | | | [facility] | | | | | | MEDICAL | | | | | | CENTER - | | | | | | LABORATORY | | + + + + + + | Creatinine | 0.89 | 0.60 - 1.30 | [facility] | | | | | mg/dL | [facility] | | | | | | MEDICAL | | | | | | CENTER - | | | | | | LABORATORY | | + + + + + + | eGFR if not | >60Comment: GLOMERULAR | >=60 | [facility] | | | | FILTRATION | mL/min/1.73m2 | [facility] | | | MALDIVIAN | RATE,ESTIMATED | | MEDICAL | | | | mL/min/1.93x2Vptb than | | CENTER - | | [...] + + | Calcium | 9.4 | 8.3 - 10.5 | [facility] | | | | | mg/dL | [facility] | | | | | | MEDICAL | | | | | | CENTER - | | | | | | LABORATORY | | + + + + + + | Albumin | 3.9 | 3.2 - 5.0 g/dL | [facility] | | | | | | [facility] | | | | | | [facility] | | | | | | CENTER - | | | | | | LABORATORY | | + + + + + + | Bilirubin | 0.8 | 0.1 - 1.5 mg/dL | [facility] | | | Total | | | [facility] | | | | | | MEDICAL | | | | | | CENTER - | | | | | | LABORATORY | | + + + + + + | Total | 6.2 | 6.0 - 7.8 g/dL | [facility] | | | Protein | | | [facility] | | | | | | MEDICAL | | | | | | CENTER - | | | | | | LABORATORY | | + + + + + + | AST | 25 | 10 - 42 U/L | [facility] | | | | | | [facility] | | | | | | MEDICAL | | | | | | CENTER - | | | | | | LABORATORY | | + + + + + + | ALT | 28 | 6 - 45 U/L | [facility] | | | | | | [facility] | | | | | | MEDICAL | | | | | | CENTER - | | | | | | LABORATORY | | + + + + + + | Alkaline | 61 | 40 - 110 U/L | [facility] | | | Phosphatase | | | [facility] | | | | | | MEDICAL | | | | | | CENTER - | | | | | | LABORATORY | | + + + + + + | Globulin | 2.3 | g/dL | [facility] | | | | | | [facility] | | | | | | MEDICAL | | | | | | CENTER - | | | | | | LABORATORY | | + + + + + + | Albumin/Sandee | 1.7 [...] [address] | [place] | [phone] | | [facility] | | [address] | | | - LABORATORY | | | | + + + + + | [facility] | [address] | [place] | | | [facility] | | [address] | | | - LABORATORY | | | | + + + + + CBC with Differential (05/26/2014 3:43 PM PDT) + +-------+ + + + | Component | Value | Ref Range | Performed | Pathologist | | | | | At | Signature | + +-------+ + + + | WBC | 8.4 | 4.0 - 11.0 K/uL | [facility] | | | | | | [facility] | | | | | | [facility]ICAL | | | | | | CENTER - | | | | | | LABORATORY | | + +-------+ + + + | RBC | 4.90 | 4.30 - 5.70 | [facility] | | | | | M/uL | [facility] | | | | | | [facility] | | | | | | CENTER - | | | | | | LABORATORY | | + +-------+ + + + | Hemoglobin | 16.7 | 13.5 - 18.0 | [facility] | | | | | g/dL | [facility] | | | | | | MEDICAL | | | | | | CENTER - | | | | | | LABORATORY | | + +-------+ + + + | Hematocrit | 47.4 | 40.0 - 51.0 % | [facility] | | | | | | [facility] | | | | | | MEDICAL | | | | | | CENTER - | | | | | | LABORATORY | | + +-------+ + + + | MCV | 96.7 | 83.0 - 101.0 fL | [facility] | | | | | | [facility] | | | | | | MEDICAL | | | | | | CENTER - | | | | | | LABORATORY | | + +-------+ + + + | MCH | 34.1 | 28.0 - 35.0 pg | [facility] | | | | | | [facility] | | | | | | MEDICAL | | | | | | CENTER - | | | | | | LABORATORY | | + +-------+ + + + | MCHC | 35.2 | 32.0 - 36.0 | [facility] | | | | | g/dL | [facility] | | | | | | MEDICAL | | | | | | CENTER - | | | | | | LABORATORY | | + +-------+ + + + | RDW-CV | 12.3 | <15.0 % | [facility] | | | | | | [facility] | | | | | | MEDICAL | | | | | | CENTER - | | | | | | LABORATORY | | + +-------+ + + + | Platelet | 147 | 140 - 440 K/uL | [facility] | | | Count | | | [facility] | | | | | | MEDICAL | | | | | | CENTER - | | | | | | LABORATORY | | + +-------+ + + + | MPV | 9.7 | fL | [facility] | | | | | | [facility] | | | | | | MEDICAL | | | | | | CENTER - | | | | | | LABORATORY | | + +-------+ + + + | % | 64.9 | 45.0 - 82.0 % | [facility] | | | Neutrophils | | | [facility] | | | | | | MEDICAL | | | | | | CENTER - | | | | | | LABORATORY | | + +-------+ + + + | % | 25.0 | 20.0 - 45.0 % | [facility] | | | Lymphocytes | | | [facility] | | | | | | MEDICAL | | | | | | CENTER - | | | | | | LABORATORY | | + +-------+ + + + | % Monocytes | 8.5 | 4.0 - 12.0 % | [facility] | | | | | | [facility] | | | | | | MEDICAL | | | | | | CENTER - | | | | | | LABORATORY | | + +-------+ + + + | % | 0.6 | 0.0 - 5.0 % | [facility] | | | Eosinophils | | | [facility] | | | | | | MEDICAL | | | | | | CENTER - | | | | | | LABORATORY | | + +-------+ + + + | % Basophils | 1.0 | 0.0 - 1.0 % | [facility] | | | | | | [facility] | | | | | | MEDICAL | | | | | | CENTER - | | | | | | LABORATORY | | + +-------+ + + + | Absolute | 5.40 | 1.80 - 8.50 | [facility] | | | Neutrophils | | K/uL | [facility] | | | | | | MEDICAL | | | | | | CENTER - | | | | | | LABORATORY | | + +-------+ + + + | Absolute | 2.10 | 0.60 - 3.20 | [facility] | | | Lymphocytes | | K/uL | [facility] | | | | | | MEDICAL | | | | | | CENTER - | | | | | | LABORATORY | | + +-------+ + + + | Absolute | 0.70 | 0.00 - 1.00 | [facility] | | | Monocytes | | K/uL | [facility] | | | | | | MEDICAL | | | | | | CENTER - | | | | | | LABORATORY | | + +-------+ + + + | Absolute | 0.00 | 0.00 - 0.40 | [facility] | | | Eosinophils | | K/uL | [facility] | | | | | | MEDICAL | | | | | | CENTER - | | | | | | LABORATORY | | + +-------+ + + + | Absolute | 0.10 | 0.00 - 0.10 | [facility] | | | Basophils | | K/uL | [facility] | [...] | + + + + + | [facility] | [address] | [place], [place] | [phone] | | [facility] | | [address] | | | - LABORATORY | | | | + + + + + | [facility] | [address] | [place], [place] | | | [facility] | | [address] | | | - LABORATORY | | | | + + + + + documented in this encounter Visit Diagnoses + + | Diagnosis | + + | Atypical chest pain - Primary Other chest pain | + + | Anxiety Anxiety state, unspecified | + + documented in this encounter Administered Medications + +--------+ +--------+------+------+ | Medication Order | MAR | Action | Dose | Rate | Site | | | Action | Date | | | | + +--------+ +--------+------+------+ | iohexol (OMNIPAQUE 350) 350 | Given | 05/26/20 | 80 mLs | | | | mg/mL injection 80 mL 80 mL, | | 14 5:43 | | | | | Intravenous, ONCE PRN, Other, | | PM PDT | | | | | Starting 05/26/14 at 1743, For | | | | | | | 1 dose, Cat Scanner | | | | | | + +--------+ +--------+------+------+ +---+---+ | | | +---+---+ + +------+ +--------+-------+---+ | sodium chloride 0.9% (NS) 70 mL | Push | 05/26/20 | 70 mLs | 4200 | | | bolus 70 mL, Intravenous, | | 14 5:44 | | mL/hr | | | Administer over 1 Minutes, ONCE | | PM PDT | | | | | PRN, for contrast study, Starting | | | | | | | 05/26/14 at 1743, For 1 dose, | | | | | | | May infuse at a different rate | | | | | | | per protocol., Cat Scanner | | | | | | + +------+ +--------+-------+---+ +---+---+ | | | +---+---+ documented in this encounter
--- OUTSIDE RECORDS SUMMARY | ~2019-11-16 | XMS | Encounter Summary ---
Demographics + + + | Address | [address] | | | [place] [address] | + + + | Home Phone [...] Team Providers + +------+ + | Care Respiratory Care Assistant Name | Role | Phone | [...] + + | 08/31/ | Refill | [facility] | Kirk French | Medication Refill | | 2018 | | [facility] | MD Brea [address] | | | | | [facility] [address] | | | | | [address] | [place] [address] | | | | | [place], [place] | [phone] | | | | | [address] | | | | | | [phone] | | | +--------+--------+ + + + [...] | | 2019 | Monitor | | [place] [facility] | Interrogation | | | | | [place], | (Primary Dx); | | | | | [place] [address] | Presence of | | | | | [phone] | permanent cardiac | | | | [...] | Monitor | | [facility] | Interrogation | | | | | [place], | (Primary Dx); | | | | | [place] [address] | Presence of | | | | | [phone] | permanent cardiac | | | | [...] W | | | | | | [place], | | | | | | [place] [address] | | | | | | [phone] | | | | | | | | +--------+ + + + + documented as of this encounter Visit Diagnoses Not on filedocumented in this encounter"
--- OUTSIDE RECORDS SUMMARY | ~2019-11-16 | XMS | Encounter Summary ---
Demographics + + + | Address | [address] | | | [place] [address] | + + + | Home Phone [...] Team Providers + +------+ + | Care Employee Communications Coordinator Name | Role | Phone | + +------+ + | Kirk French MD | PCP | | + +------+ + Reason for Visit +--------+ + | Reason | Comments | +--------+ + | Other | patient having issues with high blood pressure | +--------+ + Encounter Details +--------+ + + + + | Date | Type | Department | Care Team | Description | +--------+ + + + + | 08/19/ | Telephone | [facility] | [place], | Other (patient | | 2016 | | CARDIOLOGY [address] [place] [address] | having issues with | | | | [place], | [place], | high blood pressure) | | | | [place] [address] | [place] [address] | | | | | [phone] | [phone] | | | | | | | [...] Interrogation | | | | | [place], | (Primary Dx); | | | | | [place] [address] | Presence of | | | | | [phone] | permanent cardiac | | | | [...] | Monitor | | MD [address] | Interrogation | | | | | [place], | (Primary Dx); | | | | | [place] [address] | Presence of | | | | | [phone] | permanent cardiac | | | | [...] [place], | | | | | | [place] [address] | | | | | | [phone] | | | | | | | | +--------+ + + + + documented as of this encounter Visit Diagnoses Not on filedocumented in this encounter"
--- OUTSIDE RECORDS SUMMARY | ~2019-11-16 | XMS | Encounter Summary ---
Demographics + + + | Address | [address] | | | [place] [address] | + + + | Home Phone | | + + + | Preferred Language | Unknown | + + + | Marital Status | | + + + | Uatsdin Affiliation | 1013 | + + + | Race | Unknown | + + + | Ethnic Group | Unknown | + + + Author + + + | Author | [facility] | | | and [place] | + + + | Organization | [facility] | | | [...] Team Providers + +------+ + | Care Elevator Attendant Name | Role | Phone | + +------+ + | Kirk French MD | PCP | | + +------+ + Reason for Visit Auth/Cert +--------+--------+ + + + + | Status | Reason | Specialty | Diagnoses / | Referred By | Referred To | | | | | Procedures | Contact | Contact | +--------+--------+ + + + + | | | | Diagnoses | | Kalani, | | | | | Left | | Matthew Stacy | | | | | ureteral | | MD Nicole LEONARDO | | | | | calculus | | [facility] [place] | | | | | Procedures | | [place], [place] | | | | | [place] | | [address] Phone: | | | | | CYSTO/URETER | | [phone] | | | | | O | | Fax: | | | | | W/LITHOTRIPS | | [phone] | | | | | Y &INDWELL | | | | | | | STENT INSRT | | | | | | | Cystoscopy, | | | | | | | Left | | | | | | | ureteroscopy | | | | | | | with laser | | | | | | | lithotripsy, | | | | | | | Left | | | | | | | ureteral | | | | | | | stent | | | | | | | placement | | | +--------+--------+ + + + + Encounter Details +--------+---------+ + + + | Date | Type | Department | Care Team | Description | +--------+---------+ + + + | 04/13/ | Surgery | [facility] | Matthew Uriarte | Cystoscopy, Left | | 2018 | | MED [facility] | Dahl, MD [address] | ureteroscopy with | | | | [address] | [address] [place] | laser lithotripsy, | | | | [place], [place] | [address] | Left ureteral stent | | | | [id number] | | placement | | | | [phone] | | | +--------+---------+ + + + [...] + + + | Blood Pressure | 114/67 | 04/13/2019 11:30 AM | | | | | PDT | | + + + + + | Pulse | 71 | 04/13/2019 11:00 AM | | | | | PDT | | + + + + + | Temperature | 36.6 C (97.9 F) | 04/13/2019 9:26 AM | | | | | PDT | | + + + + + | Respiratory Rate | 16 | 04/13/2019 10:35 AM | | | | | PDT | | + + + + + | Oxygen Saturation | 95% | 04/13/2019 11:00 AM | | | | | PDT | | + + + + + | Inhaled Oxygen | - | - | | | Concentration | | | | + + + + + | Weight | 104.3 kg (229 lb 15 | 04/13/2019 6:19 AM | | | | oz) | PDT | | + + + + + | Height | - | - | | + + + + + | Body Mass Index | 27.99 | 04/07/2019 9:26 AM | | | | | PDT [...] as of this encounter Discharge Instructions Instructions Matthew Uriarte MD - 04/13/2019Patient to pull strings and remove the stent on WednesdayApril 17. F/U in the office in 4 weeks AttachmentsThe following attachments cannot be sent through Care Everywhere.Kidney Stones, Treating: Ureteroscopic Stone Removal (Albanian)Stents, Ureteral (Albanian)documented in this encounter Medications at Time of [...] + + + +---------+ + + | [place]-3 Fatty | CAPS, one capsule by | [...] +---------+ + + | amLODIPine | Take 1 tablet by | 30 | 11 | 02/22/20 | | | (NORVASC) 5 mg | mouth Daily. | tablet | | 19 | 9 | | tablet | | | | | | + + + +---------+ + + | atorvaSTATin | Take 1 tablet by | 90 | 2 | 01/31/20 | | | (LIPITOR) 20 mg | mouth nightly. 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 | | | | | | mg per tablet | | | | | | [...] metoprolol | TAKE ONE TABLET BY | 90 | 3 | 04/04/20 | | | succinate | MOUTH EVERY DAY | tablet | | 19 | 9 | | (TOPROL-XL) 100 mg [...] | | 0 | | | | oxyCODONE-acetaminop | mouth every 6 hours | | | | 9 | | hen (PERCOCET) 5-325 | as needed for Pain. | | | | | | mg per tablet | | | | | | + + + +---------+ + + | | Take 1-2 tablets by | 30 | 0 | 04/13/20 | | | oxyCODONE-acetaminop | mouth every 4 hours | tablet | | 19 | 9 | | hen (PERCOCET) 5-325 | as needed for Pain. | | | | | | mg per tablet | | | | | | + + + +---------+ + + | sertraline | Take 100 mg by mouth | | 0 | 08/29/20 | | | (ZOLOFT) 50 mg | Daily. | | | 18 | 9 | | tablet | | | | | | + + + +---------+ + + | tamsulosin | Take 1 capsule by | 30 | 11 | 04/13/20 | | | (FLOMAX) 0.4 mg CAPS | mouth nightly for 30 | capsule | | 19 | 9 | | | days. | | | | | + + + +---------+ + + | tamsulosin | Take 1 capsule by | 30 | 0 | 04/11/20 | | | (FLOMAX) 0.4 mg CAPS | mouth daily (after | capsule | | 19 | 9 | | | breakfast). | | | | | + + [...] Interrogation | | | | | [facility] [place], | (Primary Dx); | | | | | [place] [address] | Presence of | | | | | [phone] | permanent cardiac | | | | [...] 2018 | Monitor | | [address] | Interrogation | | | | | [place], | (Primary Dx); | | | | | [place] [address] | Presence of | | | | | [phone] | permanent cardiac | | | | [...] [address] | | | | [address] [place], | | | | | | [place] [address] | | | | | | [phone] | | | | | | | | +--------+ + + + + documented as of this encounter Procedures + +--------+ + + + | Procedure Name | Priori | Date/Time | Associated Diagnosis | Comments | | | ty | | | | + +--------+ + + + | FL PYELOGRAM | Routin | 04/13/2019 | | Results for this | | RETROGRADE | e | 9:30 AM | | procedure are in the | | | | PDT | | results section. | + +--------+ + + + | CALCULI ANALYSIS | Routin | 04/13/2019 | | Results for this | | | e | 9:19 AM | | procedure are in the | | | | PDT | | results section. | + +--------+ + + + | CYSTOSCOPY | | 04/13/2019 | Left ureteral | | | URETEROSCOPY W/ | | 8:10 AM | calculus | | | LASER | | PDT | | | + +--------+ + + + | PTT | Routin | 04/13/2019 | Preoperative | Results for this | | | e | 7:07 AM | clearance | procedure are in the | | | | PDT | | results section. | + +--------+ + + + | PROTIME INR | Routin | 04/13/2019 | Preoperative | Results for this | | | e | 7:07 AM | clearance | procedure are in the | | | | PDT | | results section. | + +--------+ + + + | CBC NO DIFFERENTIAL | Routin | 04/13/2019 | Preoperative | Results for this | | | e | 7:07 AM | clearance | procedure are in the | | | | PDT | | results section. | + +--------+ + + + | HEPATIC FUNCTION | Routin | 04/13/2019 | Preoperative | Results for this | | PANEL | e | 7:07 AM | clearance | procedure are in the | | | | PDT | | results section. | + +--------+ + + + | BASIC METABOLIC | STAT | 04/13/2019 | Preoperative | Results for this | | PANEL | | 7:07 AM | clearance | procedure are in the | | | | PDT | | results section. | + +--------+ + + + documented in this encounter Results FL Pyelogram Retrograde (04/13/2019 9:30 AM PDT) + + | Specimen | + + | | + + + + + | Narrative | Performed At | + + + | This exam has been auto-finalized and the interpretation may exist | [facility] | | elsewhere in the chart. | | + + + + +---------+ + + | Performing | Address | City/State/Zipcode | Phone Number | | Organization | | | | + +---------+ + + | [facility] | | | | + +---------+ + + Calculi Analysis (04/13/2019 9:19 AM PDT) + + + + + + | Component | Value | Ref Range | Performed | Pathologist | | | | | At | Signature | + + + + + + | CALCULI | CommentComment: Specimen | mm | REFERENCE | | | SIZE | received as fragments. | | [facility] | | | | | | - BKR | | + + + + + + | Stone | CommentComment: | | REFERENCE | | | Composition | Percentage (Represents | | [facility] | | | | the % composition) | | - BKR | | + + + + + + | Color | Red | | REFERENCE | | | | | | [facility] | | | | | | - BKR | | + + + + + + | Calculi | 16.8 | mg | REFERENCE | | | Weight | | | [facility] | | | | | | - BKR | | + + + + + + | Ca | 15 | % | REFERENCE | | | Oxalate,Dih | | | [facility] | | | ydrate | | | - BKR | | + + + + + + | Ca | 65 | % | REFERENCE | | | Oxalate,Mon | | | [facility] | | | ohydr. | | | - BKR | | + + + + + + | STONE CA | 20 | % | REFERENCE | | | PHOSPHATE | | | [facility] | | | | | | - BKR | | + + + + + + | Nidus | No Nidus visualized | | REFERENCE | | | | | | [facility] | | | | | | - BKR | | + + + + + + | Comment | Note:Comment: Please do | | REFERENCE | | | | not submit specimens on | | [facility] | | | | Q-Tips, in tape, on | | - BKR | | | | filters, or inliquids | | | | | | such as blood, urine or | | | | | | formalin. This may | | | | | | cause | | | | | | unnecessarybiohazards, | | | | | | erroneous results and/or | | | | | | delay in the processing | | | | | | of thespecimen.Blood | | | | | | was observed on exterior | | | | | | of specimen. | | | | + + + + + + | Photo | CommentComment: | | REFERENCE | | | | Photograph will follow | | [facility] | | | | under separate cover. | | - BKR | | + + + + + + | CALCULI | CommentComment: | | REFERENCE | | | COMMENT | Physician questions | | [facility] | | | | regarding Calculi | | - BKR | | | | Analysis contact [facility] | | | | | | at:[phone]. | | | | + + + + + + | Please note | CommentComment: Calculi | | REFERENCE | | | | report with photograph | | [facility] | | | | will follow via | | - BKR | | | | computer, mail orcourier | | | | | | delivery. | | | | + + + + + + | Disclaimer | CommentComment: This | | REFERENCE | | | | test was developed and | | [facility] | | | | its performance | | - BKR | | | | characteristicsdetermine | | | | | | d by [facility]. It has not | | | | | | been cleared or | | | | | | approvedby the Food and | | | | | | Drug Administration. | | | | + + + + + + + + | Specimen | + + | Tissue - Entire left | | ureter (body | | structure) | + + + + + | Narrative | Performed At | + + + | Performed at: [facility] [address] | REFERENCE LAB | | [place] [id number] [employer]: Yeny Rios MD, Phone: | [facility] | | [phone] | | + + + + + + + + | Performing | Address | City/State/Zipcode | Phone Number | | Organization | | | | + + + + + | REFERENCE LAB | [address] | [place] [address] | [phone] | | [facility] | [address] | | | + + + + + Hepatic Function Panel (04/13/2019 7:07 AM PDT) + +---------+ + + + | Component | Value | Ref Range | Performed | Pathologist | | | | | At | Signature | + +---------+ + + + | Bilirubin | 0.8 | 0.3 - 1.2 mg/dL | [facility] | | | Total | | | [facility] | | | | | | [facility] | | | | | [facility] - | | | | | | LABORATORY | | + +---------+ + + + | Total | 6.5 | 5.7 - 8.2 g/dL | [facility] | | | Protein | | | [facility] | | | | | | [facility] | | | | | | [facility] - | | | | | | LABORATORY | | + +---------+ + + + | Albumin | 4.4 | 3.2 - 4.8 g/dL | [facility] | | | | | | [facility] | | | | | | [facility] | | | | | | [facility] - | | | | | | LABORATORY | | + +---------+ + + + | AST | 31 | 0 - 34 U/L | [facility] | | | | | | [facility] | | | | | | [facility] | | | | | | [facility] - | | | | | | LABORATORY | | + +---------+ + + + | ALT | 27 | 10 - 49 U/L | [facility] | | | | | | [facility] | | | | | | [facility] | | | | | | [facility] - | | | | | | LABORATORY | | + +---------+ + + + | Alkaline | 67 | 46 - 116 U/L | [facility] | | | Phosphatase | | | [facility] | | | | | | [facility] | | | | | | [facility] - | | | | | | LABORATORY | | + +---------+ + + + | Globulin | 2.1 | 2.1 - 3.8 g/dL | [facility] | | | | | | [facility] | | | | | | [facility] | | | | | | [facility] - | | | | | | LABORATORY | | + +---------+ + + + | Albumin/Sandee | 2.1 (H) | 0.8 - 1.9 | [facility] | | | bulin Ratio | | | [facility] | | | | | | [facility] | | | | | | C[facility] - | | | | | | LABORATORY | | + +---------+ + + + | Bilirubin, | 0.30 | 0.00 - 0.30 | [facility] | | | Direct | | mg/dl | [facility] | | | | [...] [address] | [place] | [phone] | | [facility] | | [address] | | | - LABORATORY | | | | + + + + + CBC no Differential (04/13/2019 7:07 AM PDT) + +-------+ + + + | Component | Value | Ref Range | Performed | Pathologist | | | | | At | Signature | + +-------+ + + + | WBC | 7.6 | 4.0 - 11.0 K/uL | [facility] | | | | | | [facility] | | | | | | [facility]ICAL | | | | | | CENTER - | | | | | | LABORATORY | | + +-------+ + + + | RBC | 4.82 | 4.30 - 5.70 | [facility] | | | | | M/uL | [facility] | | | | | | MEDICAL | | | | | | CENTER - | | | | | | LABORATORY | | + +-------+ + + + | Hemoglobin | 16.5 | 13.5 - 18.0 | [facility] | | | | | g/dL | [facility] | | | | | | MEDICAL | | | | | | CENTER - | | | | | | LABORATORY | | + +-------+ + + + | Hematocrit | 46.2 | 40.0 - 51.0 % | [facility] | | | | | | [facility] | | | | | | [facility] | | | | | | [facility] - | | | | | | LABORATORY | | + +-------+ + + + | MCV | 95.9 | 83.0 - 101.0 fL | [facility] | | | | | | [facility] | | | | | | [facility] | | | | | | [facility] - | | | | | | LABORATORY | | + +-------+ + + + | MCH | 34.2 | 28.0 - 35.0 pg | [facility] | | | | | | [facility] | | | | | | [facility] | | | | | | [facility] - | | | | | | LABORATORY | | + +-------+ + + + | MCHC | 35.7 | 32.0 - 36.0 | [facility] | | | | | g/dL | [facility] | | | | | | [facility]ICAL | | | | | | CENTER - | | | | | | LABORATORY | | + +-------+ + + + | RDW-CV | 10.9 | <15.0 % | [facility] | | | | | | [facility] | | | | | | [facility] | | | | | | C[facility] - | | | | | | LABORATORY | | + +-------+ + + + | RDW-SD | 39.2 | 35.1 - 46.3 fL | [facility] | | | | | | [facility] | | | | | | [facility] | | | | | | [facility] - | | | | | | LABORATORY | | + +-------+ + + + | Platelet | 143 | 140 - 440 K/uL | [facility] | | | Count | | | [facility] | | | | | | [facility] | | | | | | CENTER - | | | | | | LABORATORY | | + +-------+ + + + | MPV | 11.0 | 6.5 - 12.4 fL | [facility] | | | | | | [facility] | | | | | | [facility] | | | | | | C[facility] - | | | | | | LABORATORY | | + +-------+ + + + | % nRBC | 0 | 0 - 2 per 100 | [facility] | | | | | WBCs | [facility] | | | | | [facility] | | | | | | CENTER - | | | | | | LABORATORY | | + +-------+ + + + | Absolute | 0.00 | 0.00 - 0.01 | [facility] | | | nRBC | | K/uL | [facility] | [...] + | [facility] | [address] | [place] | [phone] | | [facility] | | [address] | | | - LABORATORY | | | | + + + + + Protime INR (04/13/2019 7:07 AM PDT) + + + + + + | Component | Value | Ref Range | Performed | Pathologist | | | | | At | Signature | + + + + + + | Prothrombin | 13.7 | 11.3 - 13.9 | [facility] | | | Time | | seconds | [facility] | | | | | [facility] | | | | | | CENTER - | | | | | | LABORATORY | | + + + + + + | INR | 1.1Comment: Usual Oral | 0.9 - 1.1 | [facility] | | | | Anticoagulation Range: | | [facility] | | | | 2.0 - 3.0High [...] [address] | [place] | [phone] | | [facility] | | [address] | | | - LABORATORY | | | | + + + + + PTT (04/13/2019 7:07 AM PDT) + +-------+ + + + | Component | Value | Ref Range | Performed | Pathologist | | | | | At | Signature | + +-------+ + + + | aPTT | 34 | 22 - 36 seconds | [facility] | | | | | [...] + | [facility] | [address] | [place] | [phone] | | [facility] | | [address] | | | - LABORATORY | | | | + + + + + Basic Metabolic Panel (04/13/2019 7:07 AM PDT) + + + + + + | Component | Value | Ref Range | Performed | Pathologist | | | | | At | Signature | + + + + + + | Na | 139 | 136 - 145 | [facility] | | | | | mmol/L | [facility] | | | | | | MEDICAL | | | | | | CENTER - | | | | | | LABORATORY | | + + + + + + | K | 3.7 | 3.4 - 5.1 | [facility] | | | | | mmol/L | [facility] | | | | | | MEDICAL | | | | | | CENTER - | | | | | | LABORATORY | | + + + + + + | Cl | 108 (H) | 98 - 107 mmol/L | [facility] | | | | | | [facility] | | | | | | MEDICAL | | | | | | CENTER - | | | | | | LABORATORY | | + + + + + + | CO2 | 27 | 20 - 31 mmol/L | [facility] | | | | | | [facility] | | | | | | MEDICAL | | | | | | CENTER - | | | | | | LABORATORY | | + + + + + + | Anion Gap | 4 | 3 - 16 mmol/L | [facility] | | | | | | [facility] | | | | | | MEDICAL | | | | | | CENTER - | | | | | | LABORATORY | | + + + + + + | Glucose | 100 | 60 - 106 mg/dL | [facility] | | | | | | [facility] | | | | | | [facility]ICAL | | | | | | CENTER - | | | | | | LABORATORY | | + + + + + + | BUN | 11 | 9 - 23 mg/dL | [facility] | | | | | | [facility] | | | | | | MEDICAL | | | | | | CENTER - | | | | | | LABORATORY | | + + + + + + | Creatinine | 0.92 | 0.70 - 1.30 | [facility] | [...] mL/min/1.73m2 | [facility] | | | [place] | RATE,ESTIMATED | | MEDICAL | | | | mL/min/1.72a7Amed than | | CENTER - | | [...] + + | Calcium | 9.5 | 8.7 - 10.4 | [facility] | | | | | mg/dL | [facility] | | | | | | MEDICAL | | | | | | CENTER - | | | | | | LABORATORY | | + + + + + + | BUN/Creatin | 12.0 | | [facility] | | | ine Ratio | | | [facility] | | | | | [...] + | [facility] | [address] | [place] | [phone] | | [facility] | | [address] | | | - LABORATORY | | | | + + + + + documented in this encounter Visit Diagnoses + + | Diagnosis | + + | Left ureteral calculus Calculus of ureter | + + documented in this encounter Admitting Diagnoses + + | Diagnosis | + + | Left ureteral calculus Calculus of ureter | + + documented in this encounter Administered Medications + +--------+---------+------+------+------+ | Medication Order | MAR | Action | Dose | Rate | Site | | | Action | Date | | | | + +--------+---------+------+------+------+ + +---+ | acetaminophen (TYLENOL) tablet | | | 1,000 mg 1,000 mg, Oral, EVERY 8 | | | HOURS (3 times per day), First | | | dose on Wed04/13/19 at 1400, | | | Start 8 hours after pre-op dose., | | | Post-op/Phase II | | + +---+ | | | + +---+ | albuterol 2.5 mg/3 mL nebulizer | | | solution 2.5 mg 2.5 mg, | | | Nebulization, ONCE PRN, Wheezing, | | | Starting [facility] 04/13/19 at 0917, | | | For 1 dose, Notify anesthesia if | | | patient is wheezing and does not | | | have a history of asthma or COPD | | | or current smoking., | | | Recovery/Phase I | | + +---+ | | | + +---+ | atropine 0.1 mg/mL syringe 0.5 | | | mg 0.5 mg, Intravenous, PRN, | | | Bradycardia, For HR < 40, | | | Starting [facility] 04/13/19 at 0917, For | | | 2 doses, May repeat one time | | | after 1 min., Recovery/Phase I | | + +---+ | | | + +---+ + +-------+ +--------+---+---+ | ciprofloxacin (CIPRO) tablet | Given | 04/13/20 | 500 mg | | | | 500 mg 500 mg, Oral, ONCE, Wed | | 19 7:35 | | | | | 5/23/19 at 0745, For 1 dose, Give | | AM PDT | | | | | 2 hours before or 6 hours after | | | | | | | antacids, dairy, calcium, iron, | | | | | | | or zinc., Pre-op, Indications: | | | | | | | Surgical Prophylaxis | | | | | | + +-------+ +--------+---+---+ + +---+ | | | + +---+ | dextrose 50% injection 12.5-25 | | | g 12.5-25 g, Intravenous, EVERY | | | 15 MIN PRN, Low Blood Sugar, Give | | | 12.5g (25 mL) IV if blood | | | glucose 50-69 mg/dL. Give 25g | | | (50 mL) IV if blood glucose < 50, | | | Starting [facility] 04/13/19 at 0634, | | | Repeat in 15 min if blood glucose | | | remains < 70 mg/dL. Repeat | | | blood glucose in 30 min once | | | blood glucose > 70., Pre-op | | + +---+ | | | + +---+ | dextrose 50% injection 12.5-25 | | | g 12.5-25 g, Intravenous, EVERY | | | 15 MIN PRN, Low Blood Sugar, For | | | hypoglycemia. Give 12.5g (25ml) | | | IV if blood glucose 50-69 | | | mg/dL. Give 25g (50ml) IV if | | | blood glucose < 50, Starting [facility] | | | 04/13/19 at 0917, Give over 2 min. | | | Repeat in 15 min if blood | | | glucose remains < 70 mg/dL. | | | Repeat blood glucose in 30 min | | | once blood glucose > 70., | | | Recovery/Phase I | | + +---+ | | | + +---+ | ePHEDrine 50 mg/mL injection 5 | | | mg 5 mg, Intravenous, EVERY 5 | | | MIN PRN, if SBP <90., Starting | | | [facility] 04/13/19 at 0917, Hold if HR > | | | 100. Maximum total dose 20mg., | | | Recovery/Phase I | | + +---+ | | | + +---+ | HYDROmorphone (DILAUDID) | | | injection 0.2-0.4 mg 0.2-0.4 mg, | | | Intravenous, EVERY 1 HOUR PRN, | | | Pain, Starting [facility] 04/13/19 at | | | 1046, If oral route not an | | | option. Slow IV push, not faster | | | than 0.3mg/minute. First dose | | | must be lowest dose, titrate to | | | effective dose by repeat of | | | lowest dose every 30 minutes prn | | | pain, may not exceed maximum dose | | | ordered per interval. Use | | | Pasero Sedation Scale., | | | Post-op/Phase II | | + +---+ | | | + +---+ + +-------+ +--------+---+---+ | HYDROmorphone (DILAUDID) | Given | 04/13/20 | 0.4 mg | | | | injection 0.2-0.6 mg 0.2-0.6 mg, | | 19 10:39 | | | | | Intravenous, EVERY 5 MIN PRN, | | AM PDT | | | | | Pain, Starting [facility] 04/13/19 at | | | | | | | 0917, First dose must be lowest | | | | | | | dose, can increase subsequent | | | | | | | doses by 0.2mg within dosing | | | | | | | range. If patient meets opioid | | | | | | | tolerant definition, can start | | | | | | | with 0.4mg dose. [Maximum total | | | | | | | PACU dose 4mg] Use Pasero | | | | | | | Sedation Scale. [Opioid tolerant | | | | | | | = One week or longer, | | | | | | | [id number] use of at least | | | | | | | the following DAILY dose: 60mg | | | | | | | oral morphine, 60mg oral | | | | | | | hydrocodone, 30mg oral oxycodone, | | | | | | | 8mg oral hydromorphone, fentanyl | | | | | | | patch 25mcg/hr, or equivalent | | | | | | | dose of another opioid], | | | | | | | Recovery/Phase I | | | | | | + +-------+ +--------+---+---+ +-------+ +--------+---+---+ | Given | 04/13/20 | 0.6 mg | | | | | 19 10:29 | | | | | | AM PDT | | | | +-------+ +--------+---+---+ | Given | 04/13/20 | 0.4 mg | | | | | 19 10:20 | | | | | | AM PDT | | | | +-------+ +--------+---+---+ + +---+ | | | + +---+ | ibuprofen (ADVIL, MOTRIN) | | | tablet 400 mg 400 mg, Oral, | | | EVERY 8 HOURS (3 times per day), | | | First dose on [facility] 04/13/19 at | | | 2030, If urine output is less | | | than 240ml/8 hours (30ml/hr) or | | | if signs of bleeding, contact MD | | | and hold. Administer with food | | | or snack, Post-op/Phase II | | + +---+ | | | + +---+ + +-------+ +-------+---+---+ | ketorolac (TORADOL) injection | Given | 04/13/20 | 30 mg | | | | 30 mg 30 mg, Intravenous, ONCE | | 19 9:46 | | | | | PRN, Pain, Starting [facility]ia 04/13/19 | | AM PDT | | | | | at 0917, For 1 dose, If no NSAIDs | | | | | | | within past 6 hours (note: this | | | | | | | counts as the "first" postop dose | | | | | | | if ketorolac ordered on postop | | | | | | | orders), Recovery/Phase I | | | | | | + +-------+ +-------+---+---+ +---+---+ | | | +---+---+ + +---------+ +---+---+---+ | lactated ringers (LR) infusion | New Bag | 04/13/20 | | | | | at 10-100 mL/hr, Intravenous, | | 19 8:09 | | | | | CONTINUOUS, Starting Talia 04/13/19 | | AM PDT | | | | | at 0700, TKO., Pre-op | | | | | | + +---------+ +---+---+---+ + +---+ | | | + +---+ | midazolam (VERSED) 1 mg/mL | | | injection 0.5-2 mg 0.5-2 mg, | | | Intravenous, EVERY 5 MIN PRN, | | | Anxiety, or agitation, Starting | | | Talia 04/13/19 at 0917, Maximum | | | total dose 2 mg., Recovery/Phase | | | I | | + +---+ | | | + +---+ + +-------+ +------+---+---+ | ondansetron (ZOFRAN) injection | Given | 04/13/20 | 4 mg | | | | 4 mg 4 mg, Intravenous, ONCE | | 19 9:52 | | | | | PRN, Nausea, Starting Talia 04/13/19 | | AM PDT | | | | | at 0917, For 1 dose, | | | | | | | Recovery/Phase I | | | | | | + +-------+ +------+---+---+ + +---+ | | | + +---+ | oxyCODONE (ROXICODONE) tablet | | | 2.5-10 mg 2.5-10 mg, Oral, EVERY | | | 3 HOURS PRN, Pain, Starting Talia | | | 04/13/19 at 1046, First dose must | | | be the lowest dose, can titrate | | | to effective dose by repeat of | | | lowest dose every 60 minutes prn | | | pain, may not exceed maximum dose | | | ordered per interval. Use [facility] | | | Sedation Scale., Post-op/Phase | | | II | | + +---+ | | | + +---+ documented in this encounter
--- OUTSIDE RECORDS SUMMARY | ~2019-11-16 | XMS | Encounter Summary ---
Demographics + + + | Address | [address] | | | [place] [address] | + + + | Home Phone [...] Team Providers + +------+ + | Care Production Specialist Name | Role | Phone | [...] 2019 | | GASTROENTEROLOGY | MD [address] | | | | | [address] | [place]. [place] | | | | | [address] | [place] [address] | | | | | [address] | | | | | | [phone] | | | +--------+ + + + [...] | Monitor | | MD [address] | Interrogation | | | | | [place], | (Primary Dx); | | | | | [place] [address] | Presence of | | | | | [phone] | permanent cardiac | | | | [...] | Monitor | | MD [address] | Interrogation | | | | | [place], | (Primary Dx); | | | | | [place] [address] | Presence of | | | | | [phone] | permanent cardiac | | | | [...] W | | | | | | [place], | | | | | | [place] [address] | | | | | | [phone] | | | | | | | | +--------+ + + + + documented as of this encounter Visit Diagnoses Not on filedocumented in this encounter"
--- OUTSIDE RECORDS SUMMARY | ~2019-11-16 | XMS | Encounter Summary ---
Demographics + + + | Address | [address] | | | [place] [address] | + + + | Home Phone [...] | + + +---------+ + | Maria Isable Sanchez | ECON | Unknown | | + + +---------+ + Care Team Providers + +------+ + | Care Radiation Officer Name | Role | Phone | [...] | | | | PVCs | PARISA [place] | [address] | | | | | Procedures | [address] | [address] | | | | | [place] OFFICE | [place] | [place] | | | | | CONSULTATION | [place], | [address] Phone: | | | | | NEW/ESTAB | [place] | [phone] | | | | | PATIENT 40 | [address] | Fax: | | | | | MIN | Phone: | [phone] | | | | | | [phone] | | | | | | | Fax: | | | | | | | [phone] | | +--------+--------+ + + + + Encounter Details +--------+---------+ + + + | Date | Type | Department | Care Team | Description | +--------+---------+ + + + | 11/30/ | Office | [facility] | Jay Gambino MD | Symptomatic PVCs | | 2015 | Visit | [facility] | [address] | (Primary Dx) | | | | [address] | [address] [place], | | | | | [facility] [address] [place] | [place] [address] | | | | | [address] | [phone] | | | | | [phone] | | | +--------+---------+ + + + [...] Gambino MD - 11/30/2014 5:37 PM PST [facility] [address] [place] [address] Patient Name: Moe Sanchez Date: 1960 Date [...] tablet Take 1 tablet by mouth Daily. Misc Natural Products (OSTEO BI-FLEX/5-LOXIN ADVANCED PO) Take by mouth. Takes 2 table ts in the morning and 2 tablets at night Nattokinase 100 MG CAPS Take by mouth 2 (two) times daily. nitroglycerin (NITROSTAT) 0.[address] 1 tablet under the tongue every 5 luz marcos as needed for Chest pain. [place]-3 Fatty Acids (SALMON OIL-1000 PO) CAPS, one capsule by mouth daily twice daily ONE TOUCH DELICA LANCETS MISC Check glucose as needed for hypoglycemia pantoprazole [...] (1980 1984); Hypoglycemia; Drug addiction in remission ([facility]); HTN (hypertension); Hypercholesterolemia; Bipolar 1 disorder ( HCC); Insomnia; Chronic neck pain; Depression; Hyperlipidemia; BIPOLAR [...] B; PUD; FATTY LIVER DISEASE; SUBSTANCE ABUSE, ULTIP; and Preventative health care (06/26/2013). Past Medical, [...] were not detected in the editing p Adello Incess. Should you have any questions or concerns, please do not hesitate to contact me dire ctly. Thank you for allowing me to participate in the care of Moe Sanchez. Warmest regards, Jay Gambino MD 11/30/2014 17:37 documented in this enco unter Plan of Treatment +--------+ + + + + | Date | Type | Specialty | Care Team | Description | +--------+ + + + + | 11/20/ | Implant | Cardiology | Daljit Singletary, | Remote Device | | 2018 | Monitor | | MD Chiquis [address] | Interrogation | | | | | [place], | (Primary Dx); | | | | | [place] [address] | Presence of | | | | | [phone] | permanent cardiac | | | | [...] 2018 | Monitor | | [address] | Interrogation | | | | | [place], | (Primary Dx); | | | | | [place] [address] | Presence of | | | | | [phone] | permanent cardiac | | | | [...] | | | | | | [place] [address] | | | | | | [phone] | | | | | | | [...] | + + | Randa Melo - 11/30/2014 12:00 AM PST | + + documented in this encounter Visit Diagnoses + + | Diagnosis | + + | Symptomatic PVCs - Primary Other premature beats | + + documented in this encounter
--- OUTSIDE RECORDS SUMMARY | ~2019-11-16 | XMS | Encounter Summary ---
Demographics + + + | Address | [address] | | | [place] [address] | + + + | Home Phone [...] Providers + +------+ + | Care Gas Tester Name | Role | Phone | + +------+ + PCP | Unavailable | + +------+ + Encounter Details +--------+ + + + + | Date | Type | Department | Care Team | Description | +--------+ + + + + | 12/01/ | Hospital | [facility] | | | | 1997 | Encounter | [facility] EMER[facility]Y | | | | | | CENTER [address] | | | | | | [place] | | | | | | [address] | | | | | | [phone] | | | +--------+ + + + [...] Dx); | | | | | [place] [address] | Presence of | | | | | [phone] | permanent cardiac | | | | [...] | 2018 | Monitor | | [address] [facility] | Interrogation | | | | | [place], | (Primary Dx); | | | | | [place] [address] | Presence of | | | | | [phone] | permanent cardiac | | | | [...] W | | | | | | [place], | | | | | | [place] [address] | | | | | | [phone] | | | | | | | | +--------+ + + + + documented as of this encounter Visit Diagnoses Not on filedocumented in this encounter"
--- OUTSIDE RECORDS SUMMARY | ~2019-11-16 | XMS | Encounter Summary ---
Demographics + + + | Address | [address] | | | [place] [address] | + + + | Home Phone [...] Team Providers + +------+ + | Care [address] Name | Role | Phone | + +------+ + | Kirk French MD | PCP | | + +------+ + Encounter Details +--------+ + + + + | Date | Type | Department | Care Team | Description | +--------+ + + + + | 01/07/ | Hospital | [facility] | Conversion | | | 2017 | Encounter | [facility] | Transaction, | | | | | ULTRASOUND [address] | Provider Unknown | | | | | [address] [facility] [address] | [phone] | | | | | [place] | | | | | | [address] | Kirk French | | | | | [phone] | MD Eva Guidry | | | | | | [address] [place], | | | | | | [place] [address] | | | | | | [phone] | | | | | | | [...] + + + +---------+ + + | [place]-3 Fatty | CAPS, one capsule by | [...] | | [address] [facility] | Interrogation | | | | | [place], | (Primary Dx); | | | | | [place] [address] | Presence of | | | | | [phone] | permanent cardiac | | | | [...] | | [address] [facility] | Interrogation | | | | | [place], | (Primary Dx); | | | | | [place] [address] | Presence of | | | | | [phone] | permanent cardiac | | | | [...] | | | | | | [place], | | | | | | [place] [address] | | | | | | [phone] | | | | | | | | +--------+ + + + + documented as of this encounter Visit Diagnoses Not on filedocumented in this encounter"
--- OUTSIDE RECORDS SUMMARY | ~2019-11-16 | XMS | Encounter Summary ---
Demographics + + + | Address | [address] | | | [place] [address] | + + + | Home Phone [...] Team Providers + +------+ + | Care Dredge Mechanic Name | Role | Phone | + +------+ + | Kirk French MD | PCP | | + +------+ + Encounter Details +--------+ + + + + | Date | Type | Department | Care Team | Description | +--------+ + + + + | 11/23/ | Abstract | [facility] [place] | Emmanuel Daniel MD | | | 2018 | | GASTROENTEROLOGY | [address] | | | | | [address] | [address] [place], [place] | | | | | [address] [place], [place] | [address] | | | | | [address] | | | | | | [phone] | | | +--------+ + + + [...] | Monitor | | MD [address] | Interrogation | | | | | [place], | (Primary Dx); | | | | | [place] [address] | Presence of | | | | | [phone] | permanent cardiac | | | | [...] | Monitor | | MD [address] | Interrogation | | | | | [place], | (Primary Dx); | | | | | [place] [address] | Presence of | | | | | [phone] | permanent cardiac | | | | [...] W | | | | | | [place], | | | | | | [place] [address] | | | | | | [phone] | | | | | | | | +--------+ + + + + documented as of this encounter Procedures + +--------+ + + + | Procedure Name | Priori | Date/Time | Associated Diagnosis | Comments | | | ty | | | | + +--------+ + + + | EXTERNAL LAB: [facility] | Routin | 10/18/2017 | | Results for this | | | e | | | procedure are in the | | | | | | results section. | + +--------+ + + + | EXTERNAL LAB: | Routin | 10/18/2017 | | Results for this | | GLUCOSE | e | | | procedure are in the | | | | | | results section. | + +--------+ + + + | EXTERNAL LAB: ALT | Routin | 10/18/2017 | | Results for this | | | e | | | procedure are in the | | | | | | results section. | + +--------+ + + + | EXTERNAL LAB: AST | Routin | 10/18/2017 | | Results for this | | | e | | | procedure are in the | | | | | | results section. | + +--------+ + + + | EXTERNAL LAB: | Routin | 10/18/2017 | | Results for this | | ALKALINE PHOSPHATASE | e | | | procedure are in the | | | | | | results section. | + +--------+ + + + | EXTERNAL LAB: | Routin | 10/18/2017 | | Results for this | | BILIRUBIN, TOTAL | e | | | procedure are in the | | | | | | results section. | + +--------+ + + + | EXTERNAL LAB: | Routin | 10/18/2017 | | Results for this | | ALBUMIN | e | | | procedure are in the | | | | | | results section. | + +--------+ + + + | EXTERNAL LAB: | Routin | 10/18/2017 | | Results for this | | PROTEIN, TOTAL | e | | | procedure are in the | | | | | | results section. | + +--------+ + + + | EXTERNAL LAB: | Routin | 10/18/2017 | | Results for this | | CALCIUM | e | | | procedure are in the | | | | | | results section. | + +--------+ + + + | EXTERNAL LAB: CARBON | Routin | 10/18/2017 | | Results for this | | DIOXIDE | e | | | procedure are in the | | | | | | results section. | + +--------+ + + + | EXTERNAL LAB: | Routin | 10/18/2017 | | Results for this | | CHLORIDE | e | | | procedure are in the | | | | | | results section. | + +--------+ + + + | EXTERNAL LAB: | Routin | 10/18/2017 | | Results for this | | POTASSIUM | e | | | procedure are in the | | | | | | results section. | + +--------+ + + + | EXTERNAL LAB: SODIUM | Routin | 10/18/2017 | | Results for this | | | e | | | procedure are in the | | | | | | results section. | + +--------+ + + + | EXTERNAL LAB: CBC | Routin | 10/18/2017 | | Results for this | | | e | | | procedure are in the | | | | | | results section. | + +--------+ + + + | EXTERNAL LAB: | Routin | 10/18/2017 | | Results for this | | TRIGLYCERIDES | e | | | procedure are in the | | | | | | results section. | + +--------+ + + + | EXTERNAL LAB: | Routin | 10/18/2017 | | Results for this | | CHOLESTEROL, HDL | e | | | procedure are in the | | | | | | results section. | + +--------+ + + + | EXTERNAL LAB: | Routin | 10/18/2017 | | Results for this | | CHOLESTEROL, TOTAL | e | | | procedure are in the | | | | | | results section. | + +--------+ + + + | EXTERNAL LAB: | Routin | 10/18/2017 | | Results for this | | CHOLESTEROL, LDL | e | | | procedure are in the | | | | | | results section. | + +--------+ + + + | EXTERNAL LAB: EGFR | Routin | 10/18/2017 | | Results for this | | | e | | | procedure are in the | | | | | | results section. | + +--------+ + + + | EXTERNAL LAB: | Routin | 10/18/2017 | | Results for this | | CREATININE | e | | | procedure are in the | | | | | | results section. | + +--------+ + + + | CBC WITH | Routin | 10/18/2017 | | Results for this | | DIFFERENTIAL | e | | | procedure are in the | | | | | | results section. | + +--------+ + + + | COMPREHENSIVE | Routin | 10/18/2017 | | Results for this | | METABOLIC PANEL | e | | | procedure are in the | | | | | | results section. | + +--------+ + + + documented in this encounter Results External Lab: [facility] (10/18/2017) + +-------+ + + + | Component | Value | Ref Range | Performed | Pathologist | | | | | At | Signature | + +-------+ + + + | YULIANA, | 10 | 8 - 25 | EXTERNAL | | | External | | | LAB | | + +-------+ + + + + +---------+ + + | Performing | Address | City/State/Zipcode | Phone Number | | Organization | | | | + +---------+ + + | EXTERNAL LAB | | | | + +---------+ + + External Lab: Glucose (10/18/2017) + +---------+ + + + | Component | Value | Ref Range | Performed | Pathologist | | | | | At | Signature | + +---------+ + + + | Glucose, | 100 (A) | 65 - 99 | EXTERNAL | | | External | | | LAB | | + +---------+ + + + + +---------+ + + | Performing | Address | City/State/Zipcode | Phone Number | | Organization | | | | + +---------+ + + | EXTERNAL LAB | | | | + +---------+ + + External Lab: ALT (10/18/2017) + +-------+ + + + | Component | Value | Ref Range | Performed | Pathologist | | | | | At | Signature | + +-------+ + + + | ALT, | 28 | 10 - 65 | EXTERNAL | | | External | | | LAB | | + +-------+ + + + + +---------+ + + | Performing | Address | City/State/Zipcode | Phone Number | | Organization | | | | + +---------+ + + | EXTERNAL LAB | | | | + +---------+ + + External Lab: AST (10/18/2017) + +-------+ + + + | Component | Value | Ref Range | Performed | Pathologist | | | | | At | Signature | + +-------+ + + + | AST, | 25 | 10 - 45 | EXTERNAL | | | External | | | LAB | | + +-------+ + + + + +---------+ + + | Performing | Address | City/State/Zipcode | Phone Number | | Organization | | | | + +---------+ + + | EXTERNAL LAB | | | | + +---------+ + + External Lab: Alkaline Phosphatase (10/18/2017) + +-------+ + + + | Component | Value | Ref Range | Performed | Pathologist | | | | | At | Signature | + +-------+ + + + | ALP, | 79 | 35 - 115 | EXTERNAL | | | External | | | LAB | | + +-------+ + + + + +---------+ + + | Performing | Address | City/State/Zipcode | Phone Number | | Organization | | | | + +---------+ + + | EXTERNAL LAB | | | | + +---------+ + + External Lab: Bilirubin, Total (10/18/2017) + +-------+ + + + | Component | Value | Ref Range | Performed | Pathologist | | | | | At | Signature | + +-------+ + + + | Bilirubin, | 0.7 | 0.1 - 1.5 | EXTERNAL | | | Total, | | | LAB | | | External | | | | | + +-------+ + + + + +---------+ + + | Performing | Address | City/State/Zipcode | Phone Number | | Organization | | | | + +---------+ + + | EXTERNAL LAB | | | | + +---------+ + + External Lab: Albumin (10/18/2017) + +-------+ + + + | Component | Value | Ref Range | Performed | Pathologist | | | | | At | Signature | + +-------+ + + + | Albumin, | 3.9 | 3.6 - 5 | EXTERNAL | | | External | | | LAB | | + +-------+ + + + + +---------+ + + | Performing | Address | City/State/Zipcode | Phone Number | | Organization | | | | + +---------+ + + | EXTERNAL LAB | | | | + +---------+ + + External Lab: Protein, Total (10/18/2017) + +-------+ + + + | Component | Value | Ref Range | Performed | Pathologist | | | | | At | Signature | + +-------+ + + + | Protein, | 6.8 | 6.3 - 8.2 | EXTERNAL | | | Total, | | | LAB | | | External | | | | | + +-------+ + + + + +---------+ + + | Performing | Address | City/State/Zipcode | Phone Number | | Organization | | | | + +---------+ + + | EXTERNAL LAB | | | | + +---------+ + + External Lab: Calcium (10/18/2017) + +-------+ + + + | Component | Value | Ref Range | Performed | Pathologist | | | | | At | Signature | + +-------+ + + + | Calcium, | 9.5 | 8.5 - 10.5 | EXTERNAL | | | External | | | LAB | | + +-------+ + + + + +---------+ + + | Performing | Address | City/State/Zipcode | Phone Number | | Organization | | | | + +---------+ + + | EXTERNAL LAB | | | | + +---------+ + + External Lab: Carbon Dioxide (10/18/2017) + +-------+ + + + | Component | Value | Ref Range | Performed | Pathologist | | | | | At | Signature | + +-------+ + + + | Carbon | 26 | 23 - 32 | EXTERNAL | | | Dioxide, | | | LAB | | | External | | | | | + +-------+ + + + + +---------+ + + | Performing | Address | City/State/Zipcode | Phone Number | | Organization | | | | + +---------+ + + | EXTERNAL LAB | | | | + +---------+ + + External Lab: Chloride (10/18/2017) + +-------+ + + + | Component | Value | Ref Range | Performed | Pathologist | | | | | At | Signature | + +-------+ + + + | Chloride, | 107 | 99 - 109 | EXTERNAL | | | External | | | LAB | | + +-------+ + + + + +---------+ + + | Performing | Address | City/State/Zipcode | Phone Number | | Organization | | | | + +---------+ + + | EXTERNAL LAB | | | | + +---------+ + + External Lab: Potassium (10/18/2017) + +-------+ + + + | Component | Value | Ref Range | Performed | Pathologist | | | | | At | Signature | + +-------+ + + + | Potassium, | 4.1 | 3.5 - 4.9 | EXTERNAL | | | External | | | LAB | | + +-------+ + + + + +---------+ + + | Performing | Address | City/State/Zipcode | Phone Number | | Organization | | | | + +---------+ + + | EXTERNAL LAB | | | | + +---------+ + + External Lab: Sodium (10/18/2017) + +-------+ + + + | Component | Value | Ref Range | Performed | Pathologist | | | | | At | Signature | + +-------+ + + + | Sodium, | 139 | 135 - 145 | EXTERNAL | | | External | | | LAB | | + +-------+ + + + + +---------+ + + | Performing | Address | City/State/Zipcode | Phone Number | | Organization | | | | + +---------+ + + | EXTERNAL LAB | | | | + +---------+ + + External Lab: Triglycerides (10/18/2017) + +-------+ + + + | Component | Value | Ref Range | Performed | Pathologist | | | | | At | Signature | + +-------+ + + + | Triglycerid | 63 | 0 - 150 | EXTERNAL | | | [...] +---------+ + + External Lab: Cholesterol, HDL (10/18/2017) + +-------+ + + + | Component | Value | Ref Range | Performed | Pathologist | | | | | At | Signature | + +-------+ + + + | HDL | 63 | 40 - 99,999 | EXTERNAL | | | Cholesterol | | mg/dl | LAB | | | , External [...] +---------+ + + External Lab: Cholesterol, Total (10/18/2017) + +-------+ + + + | Component | Value | Ref Range | Performed | Pathologist | | | | | At | Signature | + +-------+ + + + | Cholesterol | 152 | 0 - 200 mg/dl | EXTERNAL | | | [...] +---------+ + + External Lab: Cholesterol, LDL (10/18/2017) + +-------+ + + + | Component | Value | Ref Range | Performed | Pathologist | | | | | At | Signature | + +-------+ + + + | LDL | 76 | 0 - 100 | EXTERNAL | | | Cholesterol [...] + +---------+ + + External Lab: eGFR (10/18/2017) + +-------+ + + + | Component | Value | Ref Range | Performed | Pathologist | | | | | At | Signature | + +-------+ + + + | eGFR, | >60 | 60 - 99,999 | EXTERNAL | | | External | [...] + +---------+ + + External Lab: Creatinine (10/18/2017) + +-------+ + + + | Component [...] + +---------+ + + Comprehensive Metabolic Panel (10/18/2017) + +-------+ + + + | Component | Value | Ref Range | Performed | Pathologist | | | | | At | Signature | + +-------+ + + + | Anion Gap | 10 | 5 - 20 mmol/L | | | + +-------+ + + + | Albumin/Sandee | 1.3 | 1.0 - 2.4 Ratio | | | | bulin Ratio | | | | | + +-------+ + + + | BUN/Creatin | 11.0 | Ratio | | | | ine Ratio | | | | | + +-------+ + + + + + | Specimen | + + | Blood | + + CBC with Differential (10/18/2017) + + + + + + | Component | Value | Ref Range | Performed | Pathologist | | | | | At | Signature | + + + + + + | MCH | 34.1 (A) | 26.0 - 33.0 pg | | | + + + + + + | MCHC | 34.5 | 31.0 - 37.0 % | | | + + + + + + | % Basophils | 0.8 | 0.0 - 1.0 % | | | + + + + + + + + | Specimen | + + | Blood | + + External Lab: CBC (10/18/2017) + +---------+ + + + | Component | Value | Ref Range | Performed | Pathologist | | | | | At | Signature | + +---------+ + + + | WBC, | 6.01 | 3.8 - 11 | EXTERNAL | | | External | | | LAB | | + +---------+ + + + | HGB, | 16.7 | 13.2 - 17 | EXTERNAL | | | External | | | LAB | | + +---------+ + + + | HCT, | 48.3 | 39 - 50 | EXTERNAL | | | External | | | LAB | | + +---------+ + + + | PLT, | 131 (A) | 150 - 400 | EXTERNAL | | | External | | | LAB | | + +---------+ + + + | Neutrophils | 62.65 | | EXTERNAL | | | %, | | | LAB | | | External | | | | | + +---------+ + + + | Lymphocytes | 26.57 | | EXTERNAL | | | %, | | | LAB | | | External | | | | | + +---------+ + + + | Monocytes | 8.77 | | EXTERNAL | | | %, External | | | LAB | | + +---------+ + + + | Eosinophils | 1.21 | | EXTERNAL | | | %, | | | LAB | | | External | | | | | + +---------+ + + + | Neutrophils | 3.76 | 1.9 - 7.4 | EXTERNAL | | | , Absolute, | | | LAB | | | External | | | | | + +---------+ + + + | Lymphocytes | 1.60 | 1 - 3.9 | EXTERNAL | | | , Absolute, | | | LAB | | | External | | | | | + +---------+ + + + | Monocytes, | 0.53 | 0 - 0.8 | EXTERNAL | | | Absolute, | | | LAB | | | External | | | | | + +---------+ + + + | Eosinophils | 0.07 | 0 - 0.5 | EXTERNAL | | | , Absolute | | | LAB | | + +---------+ + + + | Basophils, | 0.05 | 0 - 0.1 | EXTERNAL | | | Absolute | | | LAB | | + +---------+ + + + | RBC, | 4.90 | 4.2 - 5.7 | EXTERNAL | | | External | | | LAB | | + +---------+ + + + | MCV, | 99 | 80 - 100 | EXTERNAL | | | External | | | LAB | | + +---------+ + + + | RDW, | 45.5 | 37 - 53 | EXTERNAL | | | External | | | LAB | | + +---------+ + + + + +---------+ + + | Performing | Address | City/State/Zipcode | Phone Number | | Organization | | | | + +---------+ + + | EXTERNAL LAB | | | | + +---------+ + + documented in this encounter Visit Diagnoses Not on filedocumented in this encounter"
--- OUTSIDE RECORDS SUMMARY | ~2019-11-16 | XMS | Encounter Summary ---
Demographics + + + | Address | [address] | | | [place] [address] | + + + | Home Phone [...] Team Providers + +------+ + | Care Pipe Finisher Name | Role | Phone | + +------+ + PCP | Unavailable | + +------+ + Encounter Details +--------+ + + + + | Date | Type | Department | Care Team | Description | +--------+ + + + + | 02/07/ | [facility] | [facility] | Unknown, | | | 1995 | Encounter | MED CTR XRAY [address] | MD Stefany | | | | | [place] | | | | | | [place] [address] | (Fax) | | | | | [phone] | | | +--------+ + + + [...] | Monitor | | MD [address] | Interrogation | | | | | [facility], | (Primary Dx); | | | | | [place] [address] | Presence of | | | | | [phone] | permanent cardiac | | | | [...] Interrogation | | | | | [facility], | (Primary Dx); | | | | | [place] [address] | Presence of | | | | | [phone] | permanent cardiac | | | | [...] W | | | | | | [place], | | | | | | [place] [address] | | | | | | [phone] | | | | | | | | +--------+ + + + + documented as of this encounter Visit Diagnoses Not on filedocumented in this encounter"
--- OUTSIDE RECORDS SUMMARY | ~2019-11-16 | XMS | Encounter Summary ---
Demographics + + + | Address | [address] | | | [place] [address] | + + + | Home Phone [...] Team Providers + +------+ + | Care Dental Biller Name | Role | Phone | + [...] + + | 09/13/ | Office | [facility] | Bahman Gant MD | Other dysphagia | | 2013 | Visit | OTOLARYNGOLOGY [address] | [address] [place] | (Primary Dx) | | | | [address] | [address] [place], | | | | | [place], [place] | [place] [address] | | | | | [address] | [phone] | | | | | [phone] | | | +--------+---------+ + + + [...] MD - 09/13/2013 5:46 PM PDTSee dictation #[id number] signed by Joseph Gant MD at 09/13/2013 5:52 PM Bahman Lamb MD - 09/13/2013 12:00 AM PDT ENT AND AUDIOLOGY [address] [facility] [address] [place] [address] FAX: [phone] OFFICE VISIT The patient gives a history [...] Gant MD GM / MS JOB #: [id number] signed by Bahman Gant MD at 09/14/2013 12:08 PM PDTdocumente d in this encounter Plan of Treatment +--------+ + + + + | Date | Type | Specialty | Care Team | Description | +--------+ + + + + | 11/20/ | Implant | Cardiology | Daljit Singletary, | Remote Device | | 2018 | Monitor | | [address] [place] | Interrogation | | | | | [place], | (Primary Dx); | | | | | [place] [address] | Presence of | | | | | [phone] | permanent cardiac | | | | [...] | 2018 | Monitor | | [address] [place] | Interrogation | | | | | [place], | (Primary Dx); | | | | | [place] [address] | Presence of | | | | | [phone] | permanent cardiac | | | | [...] W | | | | | | [place], | | | | | | [place] [address] | | | | | | [phone] | | | | | | | [...]
--- OUTSIDE RECORDS SUMMARY | ~2019-11-16 | XMS | Encounter Summary ---
Demographics + + + | Address | [address] | | | [place] [address] | + + + | Home Phone [...] Team Providers + +------+ + | Care Party Bus Driver Name | Role | Phone | + +------+ + PCP | Unavailable | + +------+ + Encounter Details +--------+ + + + + | Date | Type | Department | Care Team | Description | +--------+ + + + + | 01/31/ | Hospital | [facility] | | | | 2008 | Encounter | MED CTR EMERGENCY | | | | | | [place] [address] | | | | | | [place] | | | | | | [address] | | | | | | [phone] | | | +--------+ + + + [...] Dx); | | | | | [place] [address] | Presence of | | | | | [phone] | permanent cardiac | | | | [...] Interrogation | | | | | [place], | (Primary Dx); | | | | | [place] [address] | Presence of | | | | | [phone] | permanent cardiac | | | | [...] W | | | | | | [place], | | | | | | [place] [address] | | | | | | [phone] | | | | | | | | +--------+ + + + + documented as of this encounter Visit Diagnoses Not on filedocumented in this encounter"
--- OUTSIDE RECORDS SUMMARY | ~2019-11-16 | XMS | Encounter Summary ---
Demographics + + + | Address | [address] | | | [place] [address] | + + + | Home Phone [...] | Author | [facility] | | | and [place] | + + + | Organization | [facility] | | | and [...] Team Providers + +------+ + | Care Ct Manager Name | Role | Phone | [...] | CARDIOLOGY [address] | [address] [place] | card ) | | | | [place], | [place], | | | | | [place] [address] | [place] [address] | | | | | [phone] | [phone] | | | | | | | [...] | Monitor | | MD [address] [place] | Interrogation | | | | | [place], | (Primary Dx); | | | | | [place] [address] | Presence of | | | | | [phone] | permanent cardiac | | | | [...] | Monitor | | MD [address] [place] | Interrogation | | | | | [place], | (Primary Dx); | | | | | [place] [address] | Presence of | | | | | [phone] | permanent cardiac | | | | [...] | | | | | | [place] [address] | | | | | | [phone] | | | | | | | | +--------+ + + + + documented as of this encounter Visit Diagnoses Not on filedocumented in this encounter"
--- OUTSIDE RECORDS SUMMARY | ~2019-11-16 | XMS | Encounter Summary ---
Demographics + + + | Address | [address] | | | [place] [address] | + + + | Home Phone | | + + + | Preferred Language | Unknown | + + + | Marital Status | | + + + | Tenriism Affiliation | 1013 | + + + | Race | Unknown | + + + | Ethnic Group | Unknown | + + + Author + + + | Author | [facility] | | | and [place] | + + + | Organization | [facility] | | | [...] Team Providers + +------+ + | Care Wing Scorer Name | Role | Phone | + [...] + + | 08/23/ | Telephone | [facility] | AnshujohnsoncherelleDaljit, | Other (edema is | | 2015 | | CARDIOLOGY [address] | MD [address] [place] | blood clots) | | | | [place], | [place], | | | | | [place] [address] | [place] [address] | | | | | [phone] | | | | | | | [...] Dx); | | | | | [place] [address] | Presence of | | | | | [phone] | permanent cardiac | | | | [...] 2018 | Monitor | | [address] [place] | Interrogation | | | | | [place], | (Primary Dx); | | | | | [place] [address] | Presence of | | | | | [phone] | permanent cardiac | | | | [...] W | | | | | | [place], | | | | | | [place] [address] | | | | | | [phone] | | | | | | | | +--------+ + + + + documented as of this encounter Visit Diagnoses Not on filedocumented in this encounter"
--- OUTSIDE RECORDS SUMMARY | ~2019-11-16 | XMS | Encounter Summary ---
Demographics + + + | Address | [address] | | | [place] [address] | + + + | Home Phone [...] Team Providers + +------+ + | Care Transitional Care Liaison Name | Role | Phone | + [...] Refill | | 2013 | | [facility] | DO [address] | | | | | [address] | [place] | | | | | [place] | [address] | | | | | [address] | | | | | | [phone] | | | +--------+--------+ + + + [...] | Monitor | | MD [address] [place] | Interrogation | | | | | [place], | (Primary Dx); | | | | | [place] [address] | Presence of | | | | | [phone] | permanent cardiac | | | | [...] | Monitor | | MD [address] [place] | Interrogation | | | | | [place], | (Primary Dx); | | | | | [place] [address] | Presence of | | | | | [phone] | permanent cardiac | | | | [...] | | | | | | [place] [address] | | | | | | [phone] | | | | | | | | +--------+ + + + + documented as of this encounter Visit Diagnoses Not on filedocumented in this encounter"
--- OUTSIDE RECORDS SUMMARY | ~2019-11-16 | XMS | Encounter Summary ---
Demographics + + + | Address | [address] | | | [place] [address] | + + + | Home Phone [...] Team Providers + +------+ + | Care Shipping Weigher Name | Role | Phone | + [...] | disease involving | | | | [place], | [place], | [place] coronary | | | | [place] [address] | [place] [address] | artery without | | | | [phone] | [phone] | angina pectoris | | | | [...] | 11/20/ | Implant | Cardiology | SunshineDaljit villarreal, | Remote Device | | 2018 | Monitor | | MD [address] [place] | Interrogation | | | | | [place], | (Primary Dx); | | | | | [place] [address] | Presence of | | | | | [phone] | permanent cardiac | | | | [...] | Monitor | | MD [address] [place] | Interrogation | | | | | 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
--- OUTSIDE RECORDS SUMMARY | ~2019-11-16 | XMS | Encounter Summary ---
Demographics + + + | Address | [address] | | | [place] [address] | + + + | Home Phone [...] Team Providers + +------+ + | Care Tail Worker Name | Role | Phone | [...] | | CARDIOLOGY [address] | Janeen, MAINTAINER CENTRAL OFFICE [address] | reading) | | | | [place], | [place], | | | | | [place] [address] | [place] [address] | | | | | [phone] | [phone] | | | | | | | [...] Interrogation | | | | | [place] [employer] [employer], | (Primary Dx); | | | | | [place] [address] | Presence of | | | | | [phone] | permanent cardiac | | | | [...] 2019 | Monitor | | [address] [place] | Interrogation | | | | | [place] [employer], | (Primary Dx); | | | | | [place] [address] | Presence of | | | | | [phone] | permanent cardiac | | | | [...] | | | | | | [place] [address] | | | | | | [phone] | | | | | | | | +--------+ + + + + documented as of this encounter Visit Diagnoses Not on filedocumented in this encounter"
--- OUTSIDE RECORDS SUMMARY | ~2019-11-16 | XMS | Encounter Summary ---
Demographics + + + | Address | [address] | | | [place] [address] | + + + | Home Phone [...] Team Providers + +------+ + | Care Coal Bagger Name | Role | Phone | + +------+ + | Kirk French MD | PCP | | + +------+ + Reason for Visit +--------+ + | Reason | Comments | +--------+ + | Other | test results | +--------+ + Encounter Details +--------+ + + + + | Date | Type | Department | Care Team | Description | +--------+ + + + + | 08/30/ | Telephone | [facility] [place] | [place], | Other (test results) | | 2014 | | CARDIOLOGY [address] | PARISA [place] [address] | | | | | [place], | [place], | | | | | [place] [address] | [place] [address] | | | | | [phone] | [phone] | | | | | | | [...] Interrogation | | | | | [place], | (Primary Dx); | | | | | [place] [address] | Presence of | | | | | [phone] | permanent cardiac | | | | [...] 2019 | Monitor | | [address] [place] | Interrogation | | | | | [place], | (Primary Dx); | | | | | [place] [address] | Presence of | | | | | [phone] | permanent cardiac | | | | [...] | | | | | | [place] [address] | | | | | | [phone] | | | | | | | | +--------+ + + + + documented as of this encounter Visit Diagnoses Not on filedocumented in this encounter"
--- OUTSIDE RECORDS SUMMARY | ~2019-11-16 | XMS | Encounter Summary ---
Demographics + + + | Address | [address] | | | [place] [address] | + + + | Home Phone [...] Team Providers + +------+ + | Care Mattress Renovator Name | Role | Phone | + +------+ + PCP | Unavailable | + +------+ + Encounter Details +--------+ + + + + | Date | Type | Department | Care Team | Description | +--------+ + + + + | 02/21/ | [facility] | [facility] | Cristy Braun | | | 2008 | Encounter | MED CTR EMERGENCY | Ronald Adrian MD [address] | | | | | [place] [address] [place] | [facility] | | | | | [place] | [place] [address] | | | | | [address] | [phone] | | | | | [phone] | | | +--------+ + + + [...] Interrogation | | | | | [place], | (Primary Dx); | | | | | [place] [address] | Presence of | | | | | [phone] | permanent cardiac | | | | [...] Interrogation | | | | | [place], | (Primary Dx); | | | | | [place] [address] | Presence of | | | | | [phone] | permanent cardiac | | | | [...] W | | | | | | [place], | | | | | | [place] [address] | | | | | | [phone] | | | | | | | | +--------+ + + + + documented as of this encounter Visit Diagnoses Not on filedocumented in this encounter"
--- OUTSIDE RECORDS SUMMARY | ~2019-11-16 | XMS | Encounter Summary ---
Demographics + + + | Address | [address] [place] [address] | | | [place] [address] | + + + | Home Phone | | + + + | Preferred Language | Unknown | + + + | Marital Status | | + + + | Pentecostal Affiliation | Unknown | + + + | Race | White | + + + | Ethnic Group | Not or | + + + Author + + + | Author | [facility] | + + + | Organization | [facility] | + + + | Address | Unknown | + + + | Phone | Unavailable | + + + Support + + + + + | Name | Relationship | Address | Phone | + + + + + | Rachel Valencia | ELIEZER | [place] | | | | | [address] | | + + + + + Care Team Providers + +------+ + | Care Corn Cutter Name | Role | Phone | + +------+ + | Darion Holden DO | PCP | | + +------+ + Encounter Details +--------+------+ + + + | Date | Type | Department | Care Team | Description | +--------+------+ + + + | 02/03/ | Lab | Laboratory at [facility] | | Chest pain; | | 2010 | | [address] | | Bradycardia | | | | [place], [place] | | | | | | [address] | | | | | | [phone] | | | +--------+------+ + + + [...] Way Lab) | [facility] | | [facility] [place] [address] | REGIONAL | | [place] [address] | LABORATORY | + + + + + + + + | Performing | Address | City/State/Zipcode | Phone Number | | Organization | | | | + + + + + | [facility] | [address] | [place] [address] | | | LABORATORY | | | [...] [facility] ([facility]) | | | [facility] [address] | | | [place] [address] | | + + + + + + + + | Performing | Address | City/State/Zipcode | Phone Number | | Organization | | | | + + + + + | [facility] | [address] | [place] [address] | | | LABORATORY | | | [...] | | | DEPARTMENT | | | [place] | | | OF | | | [...] + + + + + | [facility] DEPARTMENT OF | [address] | [place] [address] | | | PATHOLOGY | [address] | | | + + + + + documented in this encounter Visit Diagnoses + + | Diagnosis | + + | Chest pain Chest pain, unspecified | + + | Bradycardia Other specified cardiac dysrhythmias | + + documented in this encounter"
--- OUTSIDE RECORDS SUMMARY | ~2019-11-16 | XMS | Encounter Summary ---
Demographics + + + | Address | [address] | | | [place] [address] | + + + | Home Phone [...] Team Providers + +------+ + | Care Mucker Cofferdam Name | Role | Phone | + [...] + + | 08/24/ | Office | [facility] | Silvia, | Ascending thoracic | | 2018 | Visit | CARDIOLOGY [address] | PARISA [place] [address] | aortic aneurysm | | | | [place], | [place], | ([facility]) (Primary Dx); | | | | [place] [address] | [place] [address] | Syncope, unspecified | | | | [phone] | [phone] | syncope type; | | | | | | Hypertension, | | | | | | unspecified type; | | | | | | Coronary artery | | | | | | disease involving | | | | | | nulato coronary | | | | | | artery of nulato | | | | | | heart [...] of non-critical coronary artery d isease involving nulato coronary artery of nulato heart without angina pectoris, essential h ypertension, [...] Preventative health care Coronary artery disease involving nulato coronary artery of nulato heart without angina pectoris Cannabis abuse, daily [...] by mouth Daily. 90 tabl et 1 [facility] Natural Products (OSTEO BI-FLEX/5-LOXIN ADVANCED PO) Take [...] 3RD DOSE, CALL 911 100 tablet 3 Tombstone-3 Fatty Acids (SALMON OIL-1000 PO) CAPS, one capsule by mouth daily twice daily ONE TOUCH DELICA LANCETS [facility] Check glucose as needed [...] now present Confirmed by HIREN WINKLER, ANGELA ([id number]) on 07/28/2018 6:03:35 AM LAB RESULTS reviewed [...] PLTEX 157 04/11/2018 I reviewed records from [facility] for [...] ventricular arrhythmia performed by Dr. Gambino at [facility] on 01/30/2013. Patient had spontaneous PVCs [...] to go back in 3 days to [place] for an attempt of ablation under general [...] He is in class II of the [place] [employer] f unctional class. There are [...] subsided. 2. Non-critical Coronary artery disease involving nulato coronary artery of nulato heart [facility] angina pectoris: A. Normal exercise sestamibi stress [...] cannot completely be ruled out . [facility]. [facility] 12/25/13, shows non critical coronary artery [...] this chart may have been created with [employer] voice recognition software. Occasi onal wrong-word or [...] 2018 | Monitor | | [address] [place] | Interrogation | | | | | [place], | (Primary Dx); | | | | | [place] [address] | Presence of | | | | | [phone] | permanent cardiac | | | | [...] | Monitor | | MD [address] [place] | Interrogation | | | | | [place], | (Primary Dx); | | | | | [place] [address] | Presence of | | | | | [phone] | permanent cardiac | | | | [...] W | | | | | | [place], | | | | | | [place] [address] | | | | | | [phone] | | | | | | | [...] + + | Coronary artery disease involving nulato coronary artery of nulato heart without | | angina pectoris | [...]
--- OUTSIDE RECORDS SUMMARY | ~2019-11-16 | XMS | Encounter Summary ---
Demographics + + + | Address | [address] | | | [place] [address] | + + + | Home Phone [...] Team Providers + +------+ + | Care Foley Artist Name | Role | Phone | + +------+ + PCP | Unavailable | + +------+ + Encounter Details +--------+ + + + + | Date | Type | Department | Care Team | Description | +--------+ + + + + | 10/19/ | Hospital | [facility] | | | | 1992 | Encounter | MED CTR EMERGENCY | | | | | | CENTER [address] | | | | | | [place] | | | | | | [address] | | | | | | [phone] | | | +--------+ + + + [...] Dx); | | | | | [place] [address] | Presence of | | | | | [phone] | permanent cardiac | | | | [...] Interrogation | | | | | [place], | (Primary Dx); | | | | | [place] [address] | Presence of | | | | | [phone] | permanent cardiac | | | | [...] W | | | | | | [place], | | | | | | [place] [address] | | | | | | [phone] | | | | | | | | +--------+ + + + + documented as of this encounter Visit Diagnoses Not on filedocumented in this encounter"
--- OUTSIDE RECORDS SUMMARY | ~2019-11-16 | XMS | Encounter Summary ---
Demographics + + + | Address | [address] [place] [address] | | | [place] [address] | + + + | Home Phone | | + + + | Preferred Language | Unknown | + + + | Marital Status | | + + + | Hinduism Affiliation | Unknown | + + + | Race | White | + + + | Ethnic Group | Not or | + + + Author + + + | Author | [facility] | + + + | Organization | [facility] | + + + | Address | Unknown | + + + | Phone | Unavailable | + + + Support + + + + + | Name | Relationship | Address | Phone | + + + + + | Rachel Valencia | ELIEZER | [place] | | | | | [address] | | + + + + + Care Team Providers + +------+ + | Care Foreclosure Specialist Name | Role | Phone | [...] | | | | unspecified | [address] | | | | | | type | [address] | | | | | | Unintentiona | [place], [place] | | | | | | l weight | [address] | | | | | | loss | Phone: | | | | | | Procedures | [phone] | | | | | | CONSULT TO | Fax: | | | | | | NON - IVETTE | [phone] | | | | | | PROVIDER [...] 10/18/ | Telephone | [facility] | Bridgette Rios, | Other (stool tests | | 2019 | | Center at [facility] [address] | MD [address] | normal, recommend | | | | [address] | [place], [place] | hyoscyamine) | | | | Mailcode: [place] | [address] | | | | | for Health and | [phone] | | | | | [facility] [address] | | | | | | [place], [place] | | | | | | [address] | | | | | | [phone] | | | +--------+ + + + [...]
--- OUTSIDE RECORDS SUMMARY | ~2019-11-16 | XMS | Encounter Summary ---
Demographics + + + | Address | [address] | | | [place] [address] | + + + | Home Phone [...] Team Providers + +------+ + | Care Stone And Plate Preparer Apprentice Name | Role | Phone | + +------+ + | Michael Amanda DO | PCP | | + +------+ + Encounter Details +--------+ + + + + | Date | Type | Department | Care Team | Description | +--------+ + + + + | 04/06/ | Orders Only | [facility] [place] | Darlene Tirado, | | | 2013 | | CARDIOLOGY [address] | RN | | | | | [place], | | | | | | [place] [address] | | | | | | [phone] | | | +--------+ + + + [...] | 2019 | Monitor | | [address] [place] | Interrogation | | | | | [place], | (Primary Dx); | | | | | [place] [address] | Presence of | | | | | [phone] | permanent cardiac | | | | [...] | 2018 | Monitor | | [address] [facility] | Interrogation | | | | | [place], | (Primary Dx); | | | | | [place] [address] | Presence of | | | | | [phone] | permanent cardiac | | | | [...] W | | | | | | [place], | | | | | | [place] [address] | | | | | | [phone] | | | | | | | | +--------+ + + + + documented as of this encounter Visit Diagnoses Not on filedocumented in this encounter"
--- OUTSIDE RECORDS SUMMARY | ~2019-11-16 | XMS | Encounter Summary ---
Demographics + + + | Address | [address] | | | [place] [address] | + + + | Home Phone [...] Team Providers + +------+ + | Care Risk Control Analyst Name | Role | Phone | [...] 2014 | | CARDIOLOGY [address] | ASSEMBLER FITTER [address] [place] | edema and chest | | | | [place], | [facility] [place] | pain) | | | | [place] [address] | [address] | | | | | [phone] | | | +--------+ + + + [...] Interrogation | | | | | [place], | (Primary Dx); | | | | | [place] [address] | Presence of | | | | | [phone] | permanent cardiac | | | | [...] 2018 | Monitor | | [address] [place] | Interrogation | | | | | [place], | (Primary Dx); | | | | | [place] [address] | Presence of | | | | | [phone] | permanent cardiac | | | | [...] | | | | | | [place], | | | | | | [place] [address] | | | | | | [phone] | | | | | | | | +--------+ + + + + documented as of this encounter Visit Diagnoses Not on filedocumented in this encounter"
--- OUTSIDE RECORDS SUMMARY | ~2019-11-16 | XMS | Encounter Summary ---
Demographics + + + | Address | [address] | | | [place] [address] | + + + | Home Phone [...] Providers + +------+ + | Care Technical Delivery Manager Name | Role | Phone | [...] | CARDIOLOGY [address] | MD [address] [place] | | | | | [place], | [place], | | | | | [place] [address] | [place] [address] | | | | | [phone] | [phone] | | | | | | | [...] | Monitor | | MD [address] [place] | Interrogation | | | | | [place], | (Primary Dx); | | | | | [place] [address] | Presence of | | | | | [phone] | permanent cardiac | | | | [...] | Monitor | | MD [address] [place] | Interrogation | | | | | [place], | (Primary Dx); | | | | | [place] [address] | Presence of | | | | | [phone] | permanent cardiac | | | | [...] W | | | | | | [place], | | | | | | [place] [address] | | | | | | [phone] | | | | | | | | +--------+ + + + + documented as of this encounter Visit Diagnoses Not on filedocumented in this encounter"
--- OUTSIDE RECORDS SUMMARY | ~2019-11-16 | XMS | Encounter Summary ---
Demographics + + + | Address | [address] | | | [place] [address] | + + + | Home Phone [...] Team Providers + +------+ + | Care Surg Rn Name | Role | Phone | [...] + | 02/27/ | Telephone | [facility] | [place], | Chest Pain (Patient | | 2013 | | CARDIOLOGY [address] | Janeen, FOUNTAIN WAITRESS/WAITER [address] | having chest pain) | | | | [place], | [place], | | | | | [place] [address] | [place] [address] | | | | | [phone] | [phone] | | | | | | | [...] 2018 | Monitor | | [address] [place] | Interrogation | | | | | [place], | (Primary Dx); | | | | | [place] [address] | Presence of | | | | | [phone] | permanent cardiac | | | | [...] 2018 | Monitor | | [address] [place] | Interrogation | | | | | [place], | (Primary Dx); | | | | | [place] [address] | Presence of | | | | | [phone] | permanent cardiac | | | | [...] | | | | | | [place] [address] | | | | | | [phone] | | | | | | | | +--------+ + + + + documented as of this encounter Visit Diagnoses Not on filedocumented in this encounter"
--- OUTSIDE RECORDS SUMMARY | ~2019-11-16 | XMS | Encounter Summary ---
Demographics + + + | Address | [address] | | | [place] [address] | + + + | Home Phone [...] Team Providers + +------+ + | Care Solid Waste Division Supervisor Name | Role | Phone | + +------+ + | Kirk French MD | PCP | | + +------+ + Encounter Details +--------+ + + + + | Date | Type | Department | Care Team | Description | +--------+ + + + + | 07/05/ | Hospital | [facility] | Conversion | Acute neck pain | | 2017 | Encounter | [facility] | Transaction, | | | | | [address] | Provider Unknown | | | | | [address] [place], [place] | [phone] | | | | | [address] | | | | | | [phone] | Apolonia Ruano | | | | | | MD Shelly [address] | | | | | | [address] | | | | | | [place], [place] | | | | | | [address] | | | | | | [phone] | | +--------+ + + + + [...] + + + +---------+ + + | [place]-3 Fatty | CAPS, one capsule by | [...] Dx); | | | | | [place] [address] | Presence of | | | | | [phone] | permanent cardiac | | | | [...] 2018 | Monitor | | MD Sim [facility] | Interrogation | | | | | [place], | (Primary Dx); | | | | | [place] [address] | Presence of | | | | | [phone] | permanent cardiac | | | | [...] | | | | | | [place], | | | | | | [place] [address] | | | | | | [phone] | | | | | | | [...] At | + + + | [facility] CERVICAL SPINE LIMITED 2-3 VIEW 07/05/2017 4:30 PM | | | HISTORY: 57 years. Male. Acute neck pain. TECHNIQUE: XR | | | CERVICAL SPINE LIMITED 2-3 VIEW. 3 view(s) obtained. | | | COMPARISON: CT dated 12/23/2014 | | + + + + -----+ | Procedure Note | + -----+ | Kevin, Kalpesh Conversion - 07/06/2019 12:12 AM FRANCY LEVINE CERVICAL SPINE LIMITED | | 2-3 VIEW07/05/2017 [...]
--- OUTSIDE RECORDS SUMMARY | ~2019-11-16 | XMS | Encounter Summary ---
Demographics + + + | Address | [address] | | | [place] [address] | + + + | Home Phone [...] Team Providers + +------+ + | Care Medicine Assistant Name | Role | Phone | + +------+ + PCP | Unavailable | + +------+ + Encounter Details +--------+ + + + + | Date | Type | Department | Care Team | Description | +--------+ + + + + | 01/31/ | Hospital | [facility] | | | | 2008 | Encounter | [facility] EM[facility] | | | | | | [place] [address] | | | | | | [place] | | | | | | [address] | | | | | | [phone] | | | +--------+ + + + [...] Dx); | | | | | [place] [address] | Presence of | | | | | [phone] | permanent cardiac | | | | [...] Interrogation | | | | | [place], | (Primary Dx); | | | | | [place] [address] | Presence of | | | | | [phone] | permanent cardiac | | | | [...] W | | | | | | [place], | | | | | | [place] [address] | | | | | | [phone] | | | | | | | | +--------+ + + + + documented as of this encounter Visit Diagnoses Not on filedocumented in this encounter"
--- OUTSIDE RECORDS SUMMARY | ~2019-11-16 | XMS | Encounter Summary ---
Demographics + + + | Address | [address] | | | [place] [address] | + + + | Home Phone [...] Team Providers + +------+ + | Care Recycle Driver Name | Role | Phone | [...] | initial encounter; | | | | [place], [place] | | Elevated blood | | | | [address] | | pressure reading; | | | | [phone] | | Numbness and | | | [...] + + + +---------+ + + | [place]-3 Fatty | CAPS, one capsule by | [...] Dx); | | | | | [place] [address] | Presence of | | | | | [phone] | permanent cardiac | | | | [...] Interrogation | | | | | [place], | (Primary Dx); | | | | | [place] [address] | Presence of | | | | | [phone] | permanent cardiac | | | | [...] W | | | | | | [place], | | | | | | [place] [address] | | | | | | [phone] | | | | | | | [...]
--- OUTSIDE RECORDS SUMMARY | ~2019-11-16 | XMS | Encounter Summary ---
Demographics + + + | Address | [address] | | | [place] [address] | + + + | Home Phone [...] Team Providers + +------+ + | Care Backroom Associate Name | Role | Phone | [...] | Palpitations | [address] | | | | | Procedures | [address] | [address] [place] | | | | | ECHO | [place], | [place], [place] | | | | | Complete | [place] [address] | [address] | | | | | | Phone: | Phone: | | | | | | [phone] | [phone] | | | | | | Fax: | Fax: | | | | | | [phone] | [phone] | +--------+--------+ + + + + Reason [...] + + | 12/21/ | Office | [facility] | Daljit Singletary, | Palpitations | | 2012 | Visit | CARDIOLOGY [address] | (Primary Dx); PVC | | | | [address] [place], | [place], | (premature | | | | [place] [address] | [place] [address] | ventricular | | | | [phone] | [phone] | contraction) | | | | | [...] om the original. Subjective: Patient ID: Moe Gay is a 52 y.o. male. HPI Amilcar Gay is a 52-year-old male with a history [...] present himself to the emergency department at [facility] in [place], [place]. Today, patient is apprehensive of the [...] tablet Take 1,000 mg by mouth Daily. [place]-3 Fatty Acids (SALMON OIL-1000 PO) CAPS, one [...] tablet Take 1,000 mg by mouth Daily. [place]-3 Fatty Acids (SALMON OIL-1000 PO) CAPS, one [...] kg/m2 PACEMAKER / ICD PARAMETERS Name: Moe Gay Date: December 21, 2012 : 1960 Vp Research: PARISA Velazquez Device Tool Repair Technician: [employer] Microsystemstronic Sense (mV) Impedance (?) Capture (V) Capture (ms) A Lead 4-5.6 423 1.5 0.09 RV Lead >31.36 539 2.0 0.09 LV Lead Battery Impedance (?): 301 Battery Voltage (V): 2.8 [place] Interval (ms): 140 AR Interval (ms): 210 VA Conduction: Mode Switch Events: N/A % of time: -PROPELLANT CHARGE ZONE ASSEMBLER: 0.6 AP-PROPELLANT CHARGE ZONE ASSEMBLER: 1.3 -VS: 23.9 AP-VS: 74.2 PROPELLANT CHARGE ZONE ASSEMBLER: Magnetic Rate: 85 LINDA: 65 LEAH: Current [...] himself to the emerge ncy department at [facility] in [place], [place]. EKG showed normal sinus rhythm with [...] I will d iscuss this option with process safety specialist in [place]. 7. Followup in 2-4 weeks. Portions of this report were transcribed using voice recognition software. Every effort wa s made to ensure accuracy; however, inadvertent computerized cube cutter errors may be pre sent. documented in this encounter Plan of Treatment +--------+ + + + + | Date | Type | Specialty | Care Team | Description | +--------+ + + + + | 11/20/ | Implant | Cardiology | Daljit Singletary, | Remote Device | | 2019 | Monitor | | [address] | Interrogation | | | | | [place], | (Primary Dx); | | | | | [place] [address] | Presence of | | | | | [phone] | permanent cardiac | | | | [...] Dx); | | | | | [place] [address] | Presence of | | | | | [phone] | permanent cardiac | | | | [...] W | | | | | | [place], | | | | | | [place] [address] | | | | | | [phone] | | | | | | | | +--------+ + + + + documented as of this encounter Results ECHO Complete (12/30/2012 4:08 PM PST) + + | Specimen | + + | | + + + + + | Narrative | Performed At | + + + | [facility] | MILAN | | Department [address] [place] [address] | [facility] | | [ rep [address]] [ rep [facility] | | [facility]] Signed | - IMAGING | | | | | Patient Name: MOE GAY Jaimee | | | Physician: MIGUELINA : 1960 Age: 52 Sex: M Unit | | | #: [id number] Exam Date: 12/30/12 Location: | | | [facility] Report #: [id number] Page: | | | %(RAD)RES..mtdd.print.filter("pg") of %(RAD) | | | RES..mtdd.print.filter("tpg") | | | | | | Accession Number: [id number] | | | E C H O C A R D I O G R A P H Y R E P O R T | | | HEIGHT: 76" WEIGHT: 270# | | | PLANT AND MAINTENANCE TECHNICIAN: JAMEEL REFERRING DR: TIMMY DRAKE DR: | [...] | | | Transcribed Date/Time: 12/30/2012 16:34 Bartender Manager: | | | <<Signature on File>> | | | Daljit | | | MD [facility]01/02/13 0964 <Electronically signed by | | | Daljit Singletary MD, [facility], FACP, FASE, FASNC> Daljit | | | MD [facility] FAS 12/30/12 0739 Bartender Manager: Jessica | | | Asnddirwvkejd49/08/13 1634 Daljit Singletary MD [facility] | | | FASE | | + + + + + + + + | Performing | Address | City/State/Zipcode | Phone Number | | Organization | | | | + + + + + | [facility] | [address] | [place] | [phone] | | [facility] | | [address] | | | - IMAGING | | | | + + + + + documented in this encounter Visit Diagnoses + + | Diagnosis | + + | Palpitations - Primary | + + | PVC (premature ventricular contraction) Other premature beats | + + documented in this encounter
--- OUTSIDE RECORDS SUMMARY | ~2019-11-16 | XMS | Encounter Summary ---
Demographics + + + | Address | [address] | | | [place] [address] | + + + | Home Phone [...] Team Providers + +------+ + | Care Poultry Processor Name | Role | Phone | + [...] | | Radiology | Diagnoses | | | | | | | Cervical | Ebony | | | | | | spinal | Marietta villarreal | | | | | | stenosis | L, OPERATIONS SUPERVISOR [address] | | | | | | Procedures | [address] | | | | | | CT | [address] | | | | | | Myelography | [place], [place] | | | | | | Cervical | [address] | | | | | | Spine | Phone: | | | | | | | [phone] | | | | | | | Fax: | | | | | | | [phone] | | +--------+--------+ + + + + [...] | +--------+ + + + + | 06/04/ | Hospital | [facility] | Sariah, | Cervical spinal | | 2016 | Encounter | MED CTR [address] | Marietta Mason OPERATIONS SUPERVISOR [address] | stenosis | | | | [place], | [address] | | | | | [place] [address] | [place] [address] | | | | | [phone] | [phone] | | | | | | | [...] | 0 | 20 | | | tablet | Daily. | | | 12 | | + + + +---------+ + + | diphenhydrAMINE | Take 25 mg by mouth | | 0 | /1820 | | | (BENADRYL) 25 MG | [...] + + + +---------+ + + | [place]-3 Fatty | CAPS, one capsule by | [...] | | [address] [facility] | Interrogation | | | | | [place], | (Primary Dx); | | | | | [place] [address] | Presence of | | | | | [phone] | permanent cardiac | | | | [...] | 2018 | Monitor | | [address] [facility] | Interrogation | | | | | [place], | (Primary Dx); | | | | | [place] [address] | Presence of | | | | | [phone] | permanent cardiac | | | | [...] W | | | | | | [place], | | | | | | [place] [address] | | | | | | [phone] | | | | | | | | +--------+ + + + + documented as of this encounter Procedures + +--------+ + + + | Procedure Name | Priori | Date/Time | Associated Diagnosis | Comments | | | ty | | | | + +--------+ + + + | CT MYELOGRAPHY | Routin | 06/04/2016 | Cervical spinal | Results for this | | CERVICAL SPINE | e | 10:24 AM | stenosis | procedure are in the | | | | PDT | | results section. | + +--------+ + + + documented in this encounter Results CT Myelography Cervical Spine (06/04/2016 10:24 AM PDT) + + | Specimen | + + | | + + + + + | Narrative | Performed At | + + + | CT MYELOGRAPHY CERVICAL SPINE: 06/04/2016 10:12 AM CLINICAL | [facility] | | HISTORY: EVALUATE UE RADICULOPATHY AND WEAKNESS COMPARISON: | | | 06/18/2014 and 04/22/2012 TECHNIQUE: Myelographic contrast has been | | | placed in the thecal sac by prior procedure. Axial images are | | | obtained from skull base to T1. These are reviewed in multiplanar | | | reformations. FINDINGS: Anterior compression plate and screws at | | | C6-C7 with interbody bone graft. Stable configuration of anterior | | | compression plate when compared to cervical spine radiographs from | | | 06/16/2011. C5-C6 level has also been previously fused. Also posterior | | | pedicle and paris fusion from C6 to T1. Posterior fixation hardware is | | | intact and appears appropriately positioned. Minimal | | | retrolisthesis at C3-C4 and C4-C5. Alignment is otherwise normal. | | | Facet joints are normally aligned. C1-C2 alignment is normal. CSF | | | at the skull base and in the cervical canal is well opacified. | | | Cervical cord shows normal volume. No prevertebral swelling. | | | Normal appearance of the airway throughout. Stable 7 mm hypodense | | | nodule or cyst in the right lobe of the thyroid. No other adjacent | | | soft tissue abnormalities. C1-C2: Mild narrowing and sclerosis of | | | the anterior atlantoaxial joint. Otherwise within normal limits. | | | C2-C3: Within normal limits. C3-C4: Moderate uncinate hypertrophy | | | and posterior osteophytic ridging. Minimal degenerative | | | retrolisthesis, stable from prior. Mild broad-based disc bulge. | | | Anterior thecal sac is flattened with no significant stenosis. No | | | foraminal narrowing. C4-C5: Moderate uncinate hypertrophy and | | | mild posterior osteophytic ridging. Minimal broad-based disc bulge. | | | Anterior thecal sac is flattened, with mild stable central canal | | | stenosis, stable from prior. No foraminal narrowing. C5-C6: Fused | | | level. No residual or recurrent disc protrusion. No central canal or | | | foraminal narrowing. C6-C7: Fusion level. No central canal or | | | foraminal narrowing. C7-T1: Posterior fusion and laminectomy. No | | | central canal or foraminal narrowing. IMPRESSION - 1. Stable | | | anterior fusion at C6-C7, with stable anterior bowing of the | | | compression plate. Stable established fusion at C5-C6 as well. Stable | | | posterior C6-T1 fusion. No residual or recurrent disc protrusion, | | | central canal or foraminal narrowing. 2. Stable minimal | | | degenerative retrolisthesis at C3-C4 and C4-C5. No central canal | | | stenosis or neural encroachment. 3. Stable 7 mm right thyroid lobe | | | nodule or cyst. Dictated and Signed by: Francesco Solis MD | | | Electronically signed: 06/04/2016 1:22 PM | | + + + + + | Procedure Note | + + | Kevin, Rad Results In - 06/04/2016 1:[address] MYELOGRAPHY CERVICAL SPINE: | | 06/04/2016 10:12 AMCLINICAL HISTORY: EVALUATE UE RADICULOPATHY AND WEAKNESSCOMPARISON: | | 06/18/2014 and 04/22/2012TECHNIQUE: Myelographic contrast has been placed in the thecal sac | | by priorprocedure. Axial images are obtained from skull base to T1. These are | | reviewedin multiplanar reformations.FINDINGS: Anterior compression plate and screws at | | C6-C7 with interbody bone graft. Stableconfiguration of anterior compression plate when | | compared to cervical spineradiographs from 06/16/2011. C5-C6 level has also been | | previously fused. Alsoposterior pedicle and paris fusion from C6 to T1. Posterior fixation | | hardware isintact and appears appropriately positioned.Minimal retrolisthesis at C3-C4 | | and C4-C5. Alignment is otherwise normal. Facetjoints are normally aligned. C1-C2 | | alignment is normal.CSF at the skull base and in the cervical canal is well opacified. | | Cervical cordshows normal volume.No prevertebral swelling. Normal appearance of the | | airway throughout. Stable 7mm hypodense nodule or cyst in the right lobe of the thyroid. | | No other adjacentsoft tissue abnormalities.C1-C2: Mild narrowing and sclerosis of the | | anterior atlantoaxial joint.Otherwise within normal limits.C2-C3: Within normal | | limits.C3-C4: Moderate uncinate hypertrophy and posterior osteophytic ridging. | | Minimaldegenerative retrolisthesis, stable from prior. Mild broad-based disc | | bulge.Anterior thecal sac is flattened with no significant stenosis. No | | foraminalnarrowing.C4-C5: Moderate uncinate hypertrophy and mild posterior osteophytic | | ridging.Minimal broad-based disc bulge. Anterior thecal sac is flattened, with | | mildstable central canal stenosis, stable from prior. No foraminal narrowing.C5-C6: | | Fused level. No residual or recurrent disc protrusion. No central canalor foraminal | | narrowing.C6-C7: Fusion level. No central canal or foraminal narrowing.C7-T1: Posterior | | fusion and laminectomy. No central canal or foraminalnarrowing.IMPRESSION -1. Stable | | anterior fusion at C6-C7, with stable anterior bowing of thecompression plate. Stable | | established fusion at C5-C6 as well. Stable posteriorC6-T1 fusion. No residual or | | recurrent disc protrusion, central canal orforaminal narrowing.2. Stable minimal | | degenerative retrolisthesis at C3-C4 and C4-C5. No centralcanal stenosis or neural | | encroachment.3. Stable 7 mm right thyroid lobe nodule or cyst.Dictated and Signed by: | | Francesco Solis MD Electronically signed: 06/04/2016 1:22 PM | |C2-C3: Within normal limits. | | | |C3-C4: Moderate uncinate hypertrophy and posterior osteophytic ridging. Minimal | |degenerative retrolisthesis, stable from prior. Mild broad-based disc bulge. | |Anterior thecal sac is flattened with no significant stenosis. No foraminal | |narrowing. | | | |C4-C5: Moderate uncinate hypertrophy and mild posterior osteophytic ridging. | |Minimal broad-based disc bulge. Anterior thecal sac is flattened, with mild | |stable central canal stenosis, stable from prior. No foraminal narrowing. | | | |C5-C6: Fused level. No residual or recurrent disc protrusion. No central canal | |or foraminal narrowing. | | | |C6-C7: Fusion level. No central canal or foraminal narrowing. | | | |C7-T1: Posterior fusion and laminectomy. No central canal or foraminal | |narrowing. | | | |IMPRESSION - | |1. Stable anterior fusion at C6-C7, with stable anterior bowing of the | |compression plate. Stable established fusion at C5-C6 as well. Stable posterior | |C6-T1 fusion. No residual or recurrent disc protrusion, central canal or | |foraminal narrowing. | | | |2. Stable minimal degenerative retrolisthesis at C3-C4 and C4-C5. No central | |canal stenosis or neural encroachment. | | | |3. Stable 7 mm right thyroid lobe nodule or cyst. | | | |Dictated and Signed by: Francesco Solis MD | | Electronically signed: 06/04/2016 1:22 PM | + + + +---------+ + + | Performing | Address | City/State/Zipcode | Phone Number | | Organization | | | | + +---------+ + + | [facility] | | | | + +---------+ + + documented in this encounter Visit Diagnoses + + | Diagnosis | + + | Cervical spinal stenosis Spinal stenosis in cervical region | + + documented in this encounter"
--- OUTSIDE RECORDS SUMMARY | ~2019-11-16 | XMS | Encounter Summary ---
Demographics + + + | Address | [address] | | | [place] [address] | + + + | Home Phone [...] Team Providers + +------+ + | Care Capacity Planning Engineer Name | Role | Phone | [...] | type | [address] | [address] | | | | | Procedures | [place] | [place], | | | | | [place] | [place], [place] | [place] [address] | | | | | | [address] | Phone: | | | | | | Phone: | [phone] | | | | | | [phone] | Fax: | | | | | | Fax: | [phone] | | | | | | [phone] | | +--------+ + + + + + Reason for Visit + + + | Reason | Comments | + + + | Chest Pain | | + + + Encounter Details +--------+ + + + + | Date | Type | Department | Care Team | Description | +--------+ + + + + | 06/20/ | Emergency | [facility] | Franki Pham | Chest pain, | | 2018 | | [facility] | MD Martell [address] | unspecified type | | | | CENTER [address] | [address] [place] | (Primary Dx) | | | | [place], [place] | [place] [address] | | | | | [address] | [phone] | | | | | [phone] | | | +--------+ + + + [...] cannot be sent through Care Everywhere.Angina, Stable (Latvian)documented in this encounter Medications at Time of [...] + + + +---------+ + + | [place]-3 Fatty | CAPS, one capsule by | [...] Dx); | | | | | [place] [address] | Presence of | | | | | [phone] | permanent cardiac | | | | [...] Interrogation | | | | | [place], | (Primary Dx); | | | | | [place] [address] | Presence of | | | | | [phone] | permanent cardiac | | | | [...] W | | | | | | [place], | | | | | | [place] [address] | | | | | | [phone] | | | | | | | [...] | | | | ANGELA MARADIAGA MD ([id number]) | | | | | | on [...] | | | | | | [employer] | | | | | [...] [address] | [place] | [phone] | | [facility] | | [address] | | | - LABORATORY | | [...] + | Kevin, Rad Results In - 06/20/2018 7:54 PM [...] BNP | 82 | <100 pg/mL | [facility] | | [...] ST. | [address] | [place] | [phone] | | [facility] | | [address] | | | - LABORATORY | | [...] | | | | | | [employer] | | | | | [...] | YESSY GUTIERREZ. | [address] | [place] | [phone] | | [facility] | | [address] | | | - LABORATORY | | [...] (H) | 7 - 18 mg/dL | [facility] | | | | | | [facility] | | | | | | MEDICAL | | | | | | CENTER - | | | | | | LABORATORY | | + + + + + + | Creatinine | 1.04 | 0.60 - 1.30 | [facility] | [...] | mL/min/1.73m2 | [facility] | | | [place] | RATE,ESTIMATED | | MEDICAL | | | | mL/min/1.06n1Xpzs than | | CENTER - | | [...] + | [facility] | [address] | [place] | [phone] | | [facility] | | [address] | | | - LABORATORY | | | | + + + + + CBC with Differential (06/20/2018 7:23 PM PDT) + +---------+ + + + | Component | Value | Ref Range | Performed | Pathologist | | | | | At | Signature | + +---------+ + + + | WBC | 7.1 | 4.0 - 11.0 K/uL | [facility] | | | | | | [facility] | | | | | | MEDICAL | | | | | | CENTER - | | | | | | LABORATORY | | + +---------+ + + + | RBC | 4.84 | 4.30 - 5.70 | [facility] | | | | | M/uL | [facility] | | | | | | MEDICAL | | | | | | CENTER - | | | | | | LABORATORY | | + +---------+ + + + | Hemoglobin | 16.9 | 13.5 - 18.0 | [facility] | | | | | g/dL | [facility] | | | [...] [address] | [place] | [phone] | | [facility] | | [address] | | | - LABORATORY | | [...] | | | | ANGELA MARADIAGA MD ([id number]) | | | | | | on [...]
--- OUTSIDE RECORDS SUMMARY | ~2019-11-16 | XMS | Encounter Summary ---
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, | (Primary Dx); | | | | | [place] [address] | Presence of | | | | | [phone] | permanent cardiac | | | | [...] 2018 | Monitor | | MD [address] | Interrogation | | | | | [place], | (Primary Dx); | | | | | [place] [address] | Presence of | | | | | [phone] | permanent cardiac | | | | [...] W | | | | | | [place], | | | | | | [place] [address] | | | | | | [phone] | | | | | | | [...]
--- OUTSIDE RECORDS SUMMARY | ~2019-11-16 | XMS | Encounter Summary ---
Demographics + + + | Address | [address] | | | [place] [address] | + + + | Home Phone [...] Team Providers + +------+ + | Care Glove Operator Name | Role | Phone | [...] [address] | | | | | [address] | [place] | | | | | [phone] | [address] | | | | | | [phone] | | | | | | | [...] 2018 | Monitor | | [address] | Interrogation | | | | | [place], | (Primary Dx); | | | | | [place] [address] | Presence of | | | | | [phone] | permanent cardiac | | | | [...] 2018 | Monitor | | [address] | Interrogation | | | | | [place], | (Primary Dx); | | | | | [place] [address] | Presence of | | | | | [phone] | permanent cardiac | | | | [...] | | | | | | [place], | | | | | | [place] [address] | | | | | | [phone] | | | | | | | [...] for this | | | e | 11:35 AM | | procedure are in the | | | | PDT | | results section. | + +--------+ + + + | CULTURE, BLOOD | Routin | 04/11/2018 | | Results for this | | | e | 11:35 AM | | procedure are in the | | | | PDT | | results section. | + +--------+ + + + | COMPREHENSIVE | Routin | 04/11/2018 | | Results for this | | METABOLIC PANEL | e | 11:35 AM | | procedure are in the | | | | PDT | | results section. | + +--------+ + + + | HISTORICAL | Routin | 04/11/2018 | | Results for this | | MICROBIOLOGY RESULT | e | 11:00 AM | | procedure are in the | | | | PDT | | results section. | + +--------+ + + + | HISTORICAL | Routin | 04/11/2018 | | Results for this | | MICROBIOLOGY RESULT | e | 11:00 AM | | procedure are in the | | | | PDT | | results section. | + +--------+ + + + | OVA AND PARASITE | Routin | 04/11/2018 | | Results for this | | EXAMINATION | e | 11:00 AM | | procedure are in the | | | | PDT | | results section. | + +--------+ + + + | FECAL LEUKOCYTES | Routin | 04/11/2018 | | Results for this | | | e | 11:00 AM | | procedure are in the | | | | PDT | | results section. | + +--------+ + + + documented in this encounter Results Culture, Blood (04/11/2018 11:35 AM PDT) + + | Specimen | + + | Blood specimen | | (specimen) | + + + + + | Narrative | Performed At | + + + | Specimen Description BLOOD CULTURE | EXTERNAL LAB | | NO GROWTH 6 DAYS | | + + + + +---------+ + + | Performing | Address | City/State/Zipcode | Phone Number | | Organization | | | | + +---------+ + + | EXTERNAL LAB | | | | + +---------+ + + External Lab: [facility] (04/11/2018 11:35 AM PDT) + + + + + + | Component | Value | Ref Range | Performed | Pathologist | | | | | At | Signature | + + + + + + | WBC | 8.44 | 3.80 - 11.00 | EXTERNAL | | | | | 10*3/uL | LAB | | + + + + + + | RED CELL | 4.54 | 4.20 - 5.70 | EXTERNAL | | | COUNT | | 10*6/uL | LAB | | + + + + + + | Hgb | 15.6 | 13.2 - 17.0 | EXTERNAL | | | | | g/dL | LAB | | + + + + + + | Hematocrit, | 45.5 | 39.0 - 50.0 % | EXTERNAL | | | POC | | | LAB | | + + + + + + | MCV | 100.2 (H) | 80.0 - 100.0 fL | EXTERNAL | | | | | | LAB | | + + + + + + | MCH | 34.4 (H) | 27.0 - 34.0 pg | EXTERNAL | | | | | | LAB | | + + + + + + | MCHC | 34.4 | 32.0 - 35.5 | EXTERNAL | | | | | g/dL | LAB | | + + + + + + | RDW-CV | 47.3 | 37 - 53 fL | EXTERNAL | | | | | | LAB | | + + + + + + | Platelet | 157 | 150 - 400 | EXTERNAL | | | Count | | 10*3/uL | LAB | | | Plasma | | | | | + + + + + + | MPV | 9.9 | fL | EXTERNAL | | | | | | LAB | | + + + + + + | Differentia | AUTOMATED | | EXTERNAL | | | l Type | | | LAB | | + + + + + + | % Segmented | 64.46 | % | EXTERNAL | | | | | | LAB | | | Neutrophils | | | | | + + + + + + | % | 20.66 | % | EXTERNAL | | | Lymphocytes | | | LAB | | + + + + + + | % Monocytes | 10.97 | % | EXTERNAL | | | | | | LAB | | + + + + + + | % | 3.08 | % | EXTERNAL | | | Eosinophils | | | LAB | | + + + + + + | % Basophils | 0.83 | % | EXTERNAL | | | | | | LAB | | + + + + + + | Absolute | 5.44 | 1.90 - 7.40 | EXTERNAL | | | Segmented | | 10*3/uL | LAB | | | Neutrophils | | | | | + + + + + + | Absolute | 1.74 | 1.00 - 3.90 | EXTERNAL | | | Lymphocytes | | 10*3/uL | LAB | | + + + + + + | Absolute | 0.93 (H) | 0.00 - 0.80 | EXTERNAL | | | Monocytes | | 10*3/uL | LAB | | + + + + + + | Absolute | 0.26 | 0.00 - 0.50 | EXTERNAL | | | Eosinophils | | 10*3/uL | LAB | | + + + + + + | Absolute | 0.07 | 0.00 - 0.10 | EXTERNAL | [...] + +---------+ + + Comprehensive Metabolic Panel (04/11/2018 11:35 AM PDT) + + + + + + | Component | Value | Ref Range | Performed | Pathologist | | | | | At | Signature | + + + + + + | Na | 144 | 135 - 145 | EXTERNAL | | | | | mmol/L | LAB | | + + + + + + | K | 4.1 | 3.5 - 4.9 | EXTERNAL | | | | | mmol/L | LAB | | + + + + + + | Cl | 111 (H) | 99 - 109 mmol/L | EXTERNAL | | | | | | LAB | | + + + + + + | CO2 | 27 | 23 - 32 mmol/L | EXTERNAL | | | | | | LAB | | + + + + + + | Anion Gap | 10 | 5 - 20 mmol/L | EXTERNAL | | | | | | LAB | | + + + + + + | Glucose, | 85 | 65 - 99 mg/dL | EXTERNAL | | | Fasting | | | LAB | | + + + + + + | BUN | 30 (H) | 8 - 25 mg/dL | EXTERNAL | | | | | | LAB | | + + + + + + | Creatinine | 1.1 | 0.70 - 1.30 | EXTERNAL | | | | | mg/dL | LAB | | + + + + + + | BUN/Creatin | 27 | | EXTERNAL | | | ine Ratio | | | LAB | | + + + + + + | Calcium | 9.0 | 8.5 - 10.5 | EXTERNAL | | | | | mg/dL | LAB | | + + + + + + | Protein, | 7.1 | 6.3 - 8.2 g/dL | EXTERNAL | | | Total | | | LAB | | + + + + + + | Albumin | 3.7 | 3.6 - 5.0 g/dL | EXTERNAL | | | | | | LAB | | + + + + + + | Globulin | 3.4 | 1.3 - 4.9 g/dL | EXTERNAL | | | | | | LAB | | + + + + + + | A/G Ratio | 1.1 | 1.0 - 2.4 | EXTERNAL | | | | | | LAB | | + + + + + + | Bilirubin | 0.5 | 0.1 - 1.5 mg/dL | EXTERNAL | | | Total | | | LAB | | + + + + + + | ALP, | 72 | 35 - 115 U/L | EXTERNAL | | | External | | | LAB | | + + + + + + | AST | 30 | 10 - 45 U/L | EXTERNAL | | | | | | LAB | | + + + + + + | ALT | 54 | 10 - 65 U/L | EXTERNAL [...] | | | + +---------+ + + HISTORICAL MICROBIOLOGY RESULT (04/11/2018 11:00 AM PDT) + + | Specimen | + + | Stool specimen | | (specimen) | + + + + + | Narrative | Performed At | + + + | Toxigenic C Difficile NEGATIVE 027 NAP1 BI | EXTERNAL LAB | | 027 NAP1 BI PRESUMPTIVE NEGATIVE | | | Detection of 027 NAP1 BI strains of C. difficile is presumptive and | | | for epidemiological purposes and not intended to guide or monitor | | | treatment for C. difficile infections. | | + + + + +---------+ + + | Performing | Address | City/State/Zipcode | Phone Number | | Organization | | | | + +---------+ + + | EXTERNAL LAB | | | | + +---------+ + + Ova and Parasite Examination (04/11/2018 11:00 AM PDT) + + | Specimen | + + | Stool specimen | | (specimen) | + + + + + | Narrative | Performed At | + + + | Specimen Description STOOL CULTURE | EXTERNAL LAB | | SPECIMEN DESCRIPTION: | | | SOFT | | | NO OVA OR PARASITES SEEN | | + + + + +---------+ + + | Performing | Address | City/State/Zipcode | Phone Number | | Organization | | | | + +---------+ + + | EXTERNAL LAB | | | | + +---------+ + + Fecal leukocytes (04/11/2018 11:00 AM PDT) + + | Specimen | + + | Stool specimen | | (specimen) | + + + + + | Narrative | Performed At | + + + | FECAL WHITE CELLS NONE SEEN NORMAL | EXTERNAL LAB | | RANGE: NONE SEEN to 1+ | | + + + + +---------+ + + | Performing | Address | City/State/Zipcode | Phone Number | | Organization | | | | + +---------+ + + | EXTERNAL LAB | | | | + +---------+ + + HISTORICAL MICROBIOLOGY RESULT (04/11/2018 11:00 AM PDT) + + | Specimen | + + | Stool specimen | | (specimen) | + + + + + | Narrative | Performed At | + + + | GIARDIA ANTIGEN NEGATIVE No Giardia | EXTERNAL LAB | | lamblia antigen detected by ICA | | + + + + +---------+ + + | Performing | Address | City/State/Zipcode | Phone Number | | Organization | | | | + +---------+ + + | EXTERNAL LAB | | | | + +---------+ + + documented in this encounter Visit Diagnoses Not on filedocumented in this encounter"
--- OUTSIDE RECORDS SUMMARY | ~2019-11-16 | XMS | Encounter Summary ---
Demographics + + + | Address | [address] | | | [place] [address] | + + + | Home Phone [...] Team Providers + +------+ + | Care Net Applications Developer Name | Role | Phone | [...] | 02/15/ | Office | [facility] [place] | Silvia, | Symptomatic PVCs | | 2012 | Visit | CARDIOLOGY [address] | PARISA [place] [address] | (Primary Dx); | | | | [place], | [place], | Bradycardia; HTN | | | | [place] [address] | [place] [address] | (hypertension) | | | | [phone] | [phone] | | | | | | | [...] at which time patient was going to [place] for business analysis specialist co nsult and PVC ablation. Since [...] tablet Take 1,000 mg by mouth Daily. Dieterich-3 Fatty Acids (SALMON OIL-1000 PO) CAPS, one [...] ventricular arrhythmia performed by Dr. Gambino at [facility] on 01/30/2013. Patient had spontaneous PVCs [...] to go back in 3 days to [place] for an attempt of ablation under general [...] He is in a class II of [place] 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 There is no [...] been encouraged to keep his appointment with business analysis specialist this coming y to attempt ablation therapy. 4. Follow up appointment in 4-6 weeks. I, PARISA Russell, saw this patient under the direct supervision of Daljit Singletary MD Portions of this report were transcribed using voice recognition software. Every effort wa s made to ensure accuracy; however, inadvertent computerized computer systems information director errors may be pre sent. documented in this encounter Plan of Treatment +--------+ + + + + | Date | Type | Specialty | Care Team | Description | +--------+ + + + + | 11/20/ | Implant | Cardiology | Daljit Singletary, | Remote Device | | 2019 | Monitor | | [address] [place] | Interrogation | | | | | [place], | (Primary Dx); | | | | | [place] [address] | Presence of | | | | | [phone] | permanent cardiac | | | | [...] Interrogation | | | | | [place], | (Primary Dx); | | | | | [place] [address] | Presence of | | | | | [phone] | permanent cardiac | | | | [...] W | | | | | | [place], | | | | | | [place] [address] | | | | | | [phone] | | | | | | | [...]
--- OUTSIDE RECORDS SUMMARY | ~2019-11-16 | XMS | Encounter Summary ---
Demographics + + + | Address | [address] | | | [place] [address] | + + + | Home Phone [...] Providers + +------+ + | Care Ampoule Washing Machine Operator Name | Role | Phone [...] | SR | | | | | [phone] | | | +--------+ + + + [...] Dx); | | | | | [place] [address] | Presence of | | | | | [phone] | permanent cardiac | | | | [...] | 2018 | Monitor | | [address] | Interrogation | | | | | [place], | (Primary Dx); | | | | | [place] [address] | Presence of | | | | | [phone] | permanent cardiac | | | | [...] W | | | | | | [place], | | | | | | [place] [address] | | | | | | [phone] | | | | | | | [...]
--- OUTSIDE RECORDS SUMMARY | ~2019-11-16 | XMS | Encounter Summary ---
Demographics + + + | Address | [address] | | | [place] [address] | + + + | Home Phone [...] Team Providers + +------+ + | Care Electronic Operator Name | Role | Phone | [...] + | 06/27/ | Telephone | [facility] | Michael Amanda, | ED Follow-up (s/p | | 2014 | | MEDICINE [place] | DO [address] | [facility]) | | | | [address] | [place] | | | | | [place] | [address] | | | | | [address] | | | | | | [phone] | | | +--------+ + + + [...] 2018 | Monitor | | [address] [place] | Interrogation | | | | | [place], | (Primary Dx); | | | | | [place] [address] | Presence of | | | | | [phone] | permanent cardiac | | | | [...] 2018 | Monitor | | [address] | Interrogation | | | | | [place], | (Primary Dx); | | | | | [place] [address] | Presence of | | | | | [phone] | permanent cardiac | | | | [...] | | | | | | [place] [address] | | | | | | [phone] | | | | | | | | +--------+ + + + + documented as of this encounter Visit Diagnoses Not on filedocumented in this encounter"
--- OUTSIDE RECORDS SUMMARY | ~2019-11-16 | XMS | Encounter Summary ---
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, | (Primary Dx); | | | | | [place] [address] | Presence of | | | | | [phone] | permanent cardiac | | | | [...] Interrogation | | | | | [place], | (Primary Dx); | | | | | [place] [address] | Presence of | | | | | [phone] | permanent cardiac | | | | [...] | | | | | | [place] [address] | | | | | | [phone] | | | | | | | | +--------+ + + + + documented as of this encounter Visit Diagnoses Not on filedocumented in this encounter"
--- OUTSIDE RECORDS SUMMARY | ~2019-11-16 | XMS | Encounter Summary ---
Demographics + + + | Address | [address] | | | [place] [address] | + + + | Home Phone [...] Team Providers + +------+ + | Care Polysomnographic Tech Name | Role | Phone | [...] | 10/09/ | Telephone | [facility] [place] [facility] | Michael Amanda, | Other | | 2012 | | MEDICINE [place] | DO [address] | | | | | [address] | [place] | | | | | [place] | [address] | | | | | [address] | | | | | | [phone] | | | +--------+ + + + [...] 2018 | Monitor | | MD [address] | Interrogation | | | | | [place], | (Primary Dx); | | | | | [place] [address] | Presence of | | | | | [phone] | permanent cardiac | | | | [...] 2018 | Monitor | | MD [address] | Interrogation | | | | | [place], | (Primary Dx); | | | | | [place] [address] | Presence of | | | | | [phone] | permanent cardiac | | | | [...] W | | | | | | [place], | | | | | | [place] [address] | | | | | | [phone] | | | | | | | | +--------+ + + + + documented as of this encounter Visit Diagnoses Not on filedocumented in this encounter"
--- OUTSIDE RECORDS SUMMARY | ~2019-11-16 | XMS | Encounter Summary ---
Demographics + + + | Address | [address] | | | [place] [address] | + + + | Home Phone [...] Providers + +------+ + | Care Medical Assistant Cardiology Name | Role | Phone | + [...] [address] | | | | | [place], | [place], | | | | | [place] [address] | [place] [address] | | | | | [phone] | [phone] | | | | | | | [...] | Monitor | | MD [address] [place] | Interrogation | | | | | [place], | (Primary Dx); | | | | | [place] [address] | Presence of | | | | | [phone] | permanent cardiac | | | | [...] | Monitor | | MD [address] [place] | Interrogation | | | | | [place], | (Primary Dx); | | | | | [place] [address] | Presence of | | | | | [phone] | permanent cardiac | | | | [...] | | | | | | [place] [address] | | | | | | [phone] | | | | | | | | +--------+ + + + + documented as of this encounter Visit Diagnoses Not on filedocumented in this encounter"
--- OUTSIDE RECORDS SUMMARY | ~2019-11-16 | XMS | Encounter Summary ---
Demographics + + + | Address | [address] | | | [place] [address] | + + + | Home Phone [...] Providers + +------+ + | Care Software Asset Management Analyst Name | Role | Phone | [...] [place] | | | | | | [address] | | | | | | [phone] | | | +--------+ + + + [...] + + + +---------+ + + | Juncos-3 Fatty | CAPS, one capsule by | [...] Interrogation | | | | | [facility], | (Primary Dx); | | | | | [place] [address] | Presence of | | | | | [phone] | permanent cardiac | | | | [...] 2018 | Monitor | | [address] | Interrogation | | | | | [place], | (Primary Dx); | | | | | [place] [address] | Presence of | | | | | [phone] | permanent cardiac | | | | [...] W | | | | | | [place], | | | | | | [place] [address] | | | | | | [phone] | | | | | | | | +--------+ + + + + documented as of this encounter Visit Diagnoses + + | Diagnosis | + + | Patient left after triage - Primary | + + documented in this encounter
--- OUTSIDE RECORDS SUMMARY | ~2019-11-16 | XMS | Encounter Summary ---
Demographics + + + | Address | [address] | | | [place] [address] | + + + | Home Phone [...] Providers + +------+ + | Care Card Punching Machine Operator Name | Role | Phone | + +------+ + | Kirk French MD | PCP | | + +------+ + Encounter Details +--------+ + + + + | Date | Type | Department | Care Team | Description | +--------+ + + + + | 11/25/ | Orders Only | [facility] | Kirk French | | | 2019 | | [address] | | | | | [place], [place] | [address] | | | | | [address] | [place] [address] | | | | | [phone] | [phone] | | | | | | | [...] Interrogation | | | | | [facility], | (Primary Dx); | | | | | [place] [address] | Presence of | | | | | [phone] | permanent cardiac | | | | [...] Interrogation | | | | | [place], | (Primary Dx); | | | | | [place] [address] | Presence of | | | | | [phone] | permanent cardiac | | | | [...] | | | | | [place], | | | | | | [place] [address] | | | | | | [phone] | | | | | | | | +--------+ + + + + documented as of this encounter Procedures + +--------+ + + + | Procedure Name | Priori | Date/Time | Associated Diagnosis | Comments | | | ty | | | | + +--------+ + + + | EXTERNAL LAB: CBC | Routin | 11/25/2018 | | Results for this | | | e | 12:04 PM | | procedure are in the | | | | PST | | results section. | + +--------+ + + + | COMPREHENSIVE | Routin | 11/25/2018 | | Results for this | | METABOLIC PANEL | e | 12:04 PM | | procedure are in the | | | | PST | | results section. | + +--------+ + + + documented in this encounter Results External Lab: CBC (11/25/2018 12:04 PM PST) + + + + + + | Component | Value | Ref Range | Performed | Pathologist | | | | | At | Signature | + + + + + + | WBC | 7.07 | 3.80 - 11.00 | EXTERNAL | | | | | 10*3/uL | LAB | | + + + + + + | RED CELL | 4.95 | 4.20 - 5.70 | EXTERNAL | | | COUNT | | 10*6/uL | LAB | | + + + + + + | Hgb | 17.4 (H) | 13.2 - 17.0 | EXTERNAL | | | | | g/dL | LAB | | + + + + + + | Hematocrit, | 49.8 | 39.0 - 50.0 % | EXTERNAL | | | POC | | | LAB | | + + + + + + | MCV | 100.5 (H) | 80.0 - 100.0 fL | EXTERNAL | | | | | | LAB | | + + + + + + | MCH | 35.0 (H) | 27.0 - 34.0 pg | EXTERNAL | | | | | | LAB | | + + + + + + | MCHC | 34.9 | 32.0 - 35.5 | EXTERNAL | | | | | g/dL | LAB | | + + + + + + | RDW-CV | 43.8 | 37 - 53 fL | EXTERNAL | | | | | | LAB | | + + + + + + | Platelet | 184 | 150 - 400 | EXTERNAL | | | Count | | 10*3/uL | LAB | | | Plasma | | | | | + + + + + + | MPV | 10.8 | fL | EXTERNAL | | | | | | LAB | | + + + + + + | Differentia | AUTOMATED | | EXTERNAL | | | l Type | | | LAB | | + + + + + + | % Segmented | 67.69 | % | EXTERNAL | | | | | | LAB | | | Neutrophils | | | | | + + + + + + | % | 23.39 | % | EXTERNAL | | | Lymphocytes | | | LAB | | + + + + + + | % Monocytes | 7.39 | % | EXTERNAL | | | | | | LAB | | + + + + + + | % | 0.86 | % | EXTERNAL | | | Eosinophils | | | LAB | | + + + + + + | % Basophils | 0.67 | % | EXTERNAL | | | | | | LAB | | + + + + + + | Absolute | 4.78 | 1.90 - 7.40 | EXTERNAL | | | Segmented | | 10*3/uL | LAB | | | Neutrophils | | | | | + + + + + + | Absolute | 1.65 | 1.00 - 3.90 | EXTERNAL | | | Lymphocytes | | 10*3/uL | LAB | | + + + + + + | Absolute | 0.52 | 0.00 - 0.80 | EXTERNAL | | | Monocytes | | 10*3/uL | LAB | | + + + + + + | Absolute | 0.06 | 0.00 - 0.50 | EXTERNAL | | | Eosinophils | | 10*3/uL | LAB | | + + + + + + | Absolute | 0.05 | 0.00 - 0.10 | EXTERNAL | [...] + +---------+ + + Comprehensive Metabolic Panel (11/25/2018 12:04 PM PST) + + + + + + | Component | Value | Ref Range | Performed | Pathologist | | | | | At | Signature | + + + + + + | Na | 138 | 135 - 145 | EXTERNAL | | | | | mmol/L | LAB | | + + + + + + | K | 4.3 | 3.5 - 4.9 | EXTERNAL | | | | | mmol/L | LAB | | + + + + + + | Cl | 103 | 99 - 109 mmol/L | EXTERNAL | | | | | | LAB | | + + + + + + | CO2 | 25 | 23 - 32 mmol/L | EXTERNAL | | | | | | LAB | | + + + + + + | Anion Gap | 14 | 5 - 20 mmol/L | EXTERNAL | | | | | | LAB | | + + + + + + | Glucose, | 83 | 65 - 99 mg/dL | EXTERNAL | | | Fasting | | | LAB | | + + + + + + | BUN | 19 | 8 - 25 mg/dL | EXTERNAL | | | | | | LAB | | + + + + + + | Creatinine | 1.0 | 0.70 - 1.30 | EXTERNAL | | | | | mg/dL | LAB | | + + + + + + | BUN/Creatin | 19 | | EXTERNAL | | | ine Ratio | | | LAB | | + + + + + + | Calcium | 9.1 | 8.5 - 10.5 | EXTERNAL | | | | | mg/dL | LAB | | + + + + + + | Protein, | 7.6 | 6.3 - 8.2 g/dL | EXTERNAL | | | Total | | | LAB | | + + + + + + | Albumin | 4.3 | 3.6 - 5.0 g/dL | EXTERNAL | | | | | | LAB | | + + + + + + | Globulin | 3.3 | 1.3 - 4.9 g/dL | EXTERNAL | | | | | | LAB | | + + + + + + | A/G Ratio | 1.3 | 1.0 - 2.4 | EXTERNAL | | | | | | LAB | | + + + + + + | Bilirubin | 0.6 | 0.1 - 1.5 mg/dL | EXTERNAL | | | Total | | | LAB | | + + + + + + | ALP, | 83 | 35 - 115 U/L | EXTERNAL | | | External | | | LAB | | + + + + + + | AST | 21 | 10 - 45 U/L | EXTERNAL | | | | | | LAB | | + + + + + + | ALT | 30 | 10 - 65 U/L | EXTERNAL [...] GFR BY 1.210. | | | | | | This eGFR is calculated | | | | | | using the MDRD IDFL | | | | | | traceable equation. | | | | + + + [...]
--- OUTSIDE RECORDS SUMMARY | ~2019-11-16 | XMS | Encounter Summary ---
Demographics + + + | Address | [address] | | | [place] [address] | + + + | Home Phone [...] Providers + +------+ + | Care Gas Torch Solderer Name | Role | Phone | + +------+ + | Michael Amanda DO | PCP | | + +------+ + Reason for Visit + + + | Reason | Comments | + + + | Follow-up | One month | + + + | Device Check | | + + + | Hypertension | | + + + | Bradycardia | | + + + Encounter Details +--------+---------+ + + + | Date | Type | Department | Care Team | Description | +--------+---------+ + + + | 03/07/ | Office | [facility] | [place], | SINUS BRADYCARDIA | | 2013 | Visit | CARDIOLOGY [address] | [address] | (Primary Dx); | | | | [place], | [place], | Syncope; Symptomatic | | | | [place] [address] | [place] [address] | PVCs; Pacemaker - | | | | [phone] | [phone] | Medtronic - [id number] | | | | | | Adapta - Implanted | | | | | | 06/14/2009; | | | | | | Hypertension [...] + | Blood Pressure | 118/72 | 03/07/2014 11:04 AM | Right | | | | PDT | | + + + + + | Pulse | 78 | 03/07/2014 11:04 AM | | | | | PDT | | + + + + + | Temperature | - | - | | + + + + + | Respiratory Rate | 20 | 03/07/2014 11:04 AM | | | | | PDT | | + + + + + | Oxygen Saturation | - | - | | + + + + + | Inhaled Oxygen | - | - | | | Concentration | | | | + + + + + | Weight | 115.2 kg (254 lb) | 03/07/2014 11:04 AM | | | | | PDT | | + + + + + | Height | 193 cm (6' 4") | 03/07/2014 11:04 AM | | | | | PDT | | + + + + + | Body Mass Index | 30.92 | 03/07/2014 11:04 AM | | | | | PDT | | + + + + + documented in this encounter Progress Notes Kailey Pruitt RN - 03/07/2014 11:35 AM PDT DEVICE INTERROGATION Name: Moe Sanchez Date: March 07, 2014 : 1960 Church Warden: Kailey Pruitt RN Device Studio Assistant:Medtronic Sense (mV) Impedance (?) Capture (V) Capture (ms) A Lead >5.60 402 1.500 0.09 RV Lead >31.36 522 2.00 0.09 LV Lead Battery Impedance (?): 528 Battery Voltage (V): 2.79 ND Interval (ms): 147 AR Interval (ms): 217 VA Conduction: Mode Switch Events: 0 % of time: 0 -AIRPORT REFUELING HANDLER: <0.1% AP-AIRPORT REFUELING HANDLER: 0.1% -VS: 23.8% AP-VS: 76.1% AIRPORT REFUELING HANDLER: Magnetic Rate: 85 LINDA: 65 LEAH: Current Underlying Rhythm: Sinus Rhythm, atrial sensed, ventricular sensed 66 beats The sensing test was run in DDD [...] 2.000 0.40 LV Lead Comments: Events: No events. PVC singles 2683 PVC R - 4 PAC R - 2 Heart rate histogram shows fair distribution. Normal and stable device function. Estimated remaining device longevity is 7 years. Remote monitoring: None, prefers office. Device interrogation due in 6 months. Electronica lly signed by: Kailey Pruitt RN 03/07/2014 12:00 Janeen Mccollum [place] CLINICAL PROGRAMMER - 03/07/2014 11:07 AM PDT PATIENT NAME: Moe Sanchez : 1960: AGE: 54 y.o. PRIMARY CARE: Michael Amanda DO OUTPATIENT FOLLOW UP VISIT Date of Service: 03/07/2014 HISTORY OF PRESENT ILLNESS: Moe Sanchez is a 54 y.o. male with a history of hypertension, symptomatic zulma ycardia status post Medtronic dual-chamber permanent pacemaker implantation 06/14/09, frequen t premature ventricular contractions status post ablation spring 2012, and bipolar disorder with anxiety. He is being seen today for follow up hypertension and coronary artery disease . He was last seen 01/29/2014 at which time patient was started on isosorbide for chest pain. Since that time, patient was not able to remain on isosorbide because of headaches. He paulino d been seen at [facility] a couple times with chest pain and dizziness. Patient was told that he has an ascending aortic aneurysm and he states that he was told "there is n othing they can do for you". He was also found to be a very high blood pressures after he w as weaned off all his narcotics. Today he states his chest pain is better. His blood pressu re has been better controlled on clonidine but he states that the blood pressures were as hi gh as 280 systolic. He denies any increase shortness of shortness of breath but he has felt a small amount more of palpitations. He denies being lightheaded today but he gets spells of dizziness every once in a while. MEDICAL, SURGICAL, AND PERSONAL HISTORY Past Medical, [...] CURRENT MEDICATIONS Outpatient Encounter Prescriptions as of 03/07/2014 Medication Sig Dispense Refill amLODIPine (NORVASC) 5 mg tablet Take 5 mg by mouth Daily. Ascorbic Acid (VITAMIN C) 1000 MG tablet Take 1,000 mg by mouth Daily. aspirin 81 MG tablet Take 81 mg by mouth Daily. clonidine (CATAPRES) 0.2 MG tablet Take 0.2 mg by mouth EVERY 4 TO 6 HOURS NEEDED. diazepam (VALIUM) 5 mg tablet Take 2.5 [...] needed for Chest pain. 25 tablet 12 [place]-3 Fatty Acids (SALMON OIL-1000 PO) CAPS, one [...] Review of Systems Constitutional: Negative for malaise/fatigue. Cardiovascular: Positive for chest pain. Negative for palpitations and leg swelling. Neurological: Positive for dizziness. Negative for weakness. OBJECTIVE: PHYSICAL EXAM BP 118/72 | Pulse 78 | Resp 20 | Ht 1.93 m (6' 4") | Wt 115.214 kg (254 lb) | BMI 30.93 kg/ m2 Physical Exam Constitutional: He is [...] PLT 141* 04/03/2013 HGBEX 16.1 01/25/2014 I personally reviewed records from another healthcare provider. DEVICE INTERROGATION Name: Moe Sanchez Date: March 07, 2014 : 1960 Church Warden: Kailey Pruitt RN Device Studio Assistant:Zeo Sense (mV) Impedance (?) Capture (V) Capture (ms) A Lead >5.60 402 1.500 0.09 RV Lead >31.36 522 2.00 0.09 LV Lead Battery Impedance (?): 528 Battery Voltage (V): 2.79 ND Interval (ms): 147 AR Interval (ms): 217 VA Conduction: Mode Switch Events: 0 % of time: 0 -AIRPORT REFUELING HANDLER: <0.1% AP-AIRPORT REFUELING HANDLER: 0.1% -VS: 23.8% AP-VS: 76.1% AIRPORT REFUELING HANDLER: Magnetic Rate: 85 LINDA: 65 LEAH: Current Underlying Rhythm: Sinus Rhythm, atrial sensed, ventricular sensed 66 beats The sensing test was run in DDD [...] 2.000 0.40 LV Lead Comments: Events: No events. PVC singles 2683 PVC R - 4 PAC R - 2 Heart rate histogram shows fair distribution. Normal and stable device function. Estimated remaining device longevity is 7 years. Remote monitoring: None, prefers office. Device interrogation due in 6 months. Electronica lly signed by: Kailey Pruitt RN 03/07/2014 12:00 ASSESSMENT: 1. Noncritical coronary artery disease: A. [...] attenuation cannot completely be ruled out. D. [facility] 12/25/13, shows noncritical coronary artery disease, mild ecstatic change to the le ft main artery, the coronary circulation is right dominant, normal left ventricular size, wa ll thickness and motion, preserved left ventricular systolic function, LVEF is 75%, normal s ystemic blood pressure, successful TR band application to the right radial artery. E. Patient was not able to tolerate higher doses of isosorbide. He was started on amlodip ine and that seemed to help his chest pain. He continues to utilize nitroglycerin sublingua l as needed for chest pain. He is in class II of [employer] Heart Association functional class . There are no signs or symptoms of overt congestive heart failure. On physical examinatio n there are no signs of fluid overload. Patient is in therapy with statin, aspirin, beta bl ocker, and nitrates. 2. Symptomatic PVC's status post [...] ventricular arrhythmia performed by Dr. Gambino at [facility] on 01/30/2013. Patient had spontaneous [...] to go back in 3 days to [place] for an attempt of ablation under general [...] palpitations.. He is in class II of [employer] Heart Ass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 There are no signs or symptoms of overt sonya estive heart failure. There is no fluid retention on physical examination. Patient continu es amlodipine and metoprolol. 3. Profound bradycardia associated with dizziness, lightheadedness, and syncope: A. The echocardiogram on 05/25/09 revealed a normal left ventricular size and sys tolic function, LVEF 65 to 70%. B. Medtronic DDD permanent pacemaker implantation on 06/14/[address] Dlajit masters. C. Today his device interrogation shows a normal stable function. 4. Hypertension. A. Today blood pressure is well controlled. He was restarted on amlodipine and clonidine for blood pressure control. He did not bring in his blood pressure logs from [facility] e 5. Lightheadedness and dizziness/ presyncope: A. Episode [...] [address] PLAN: 1. We will continue current medical management of hypertension with clonidine and amlodipi ne added to the regimen. Patient has been instructed to do 2 week blood pressure log and se nd it to the office and then we will make changes accordingly to readings with the medicatio n. 2. Follow up appointment in 6-8 weeks or sooner if any concerns. Patient will need to have a recheck CTA of chest and abdomen by August 2014 Janeen Clemente ARNP, saw this patient under the direct supervision of Daljit Singletary MD Portions of this report were transcribed using voice recognition software. Every effort wa s made to ensure accuracy; however, inadvertent computerized stock clipper errors may be pre sent. Electronically signed by: PARISA Russell 03/07/2014 11:07 documented in this encounter Plan of Treatment +--------+ + + + + | Date | Type | Specialty | Care Team | Description | +--------+ + + + + | 11/20/ | Implant | Cardiology | Daljit Singletary, | Remote Device | | 2018 | Monitor | | MD [address]iquis [address] | Interrogation | | | | | [place], | (Primary Dx); | | | | | [place] [address] | Presence of | | | | | [phone] | permanent cardiac | | | | [...] | Monitor | | MD [address] [place] | Interrogation | | | | | [place], | (Primary Dx); | | | | | [place] [address] | Presence of | | | | | [phone] | permanent cardiac | | | | [...] W | | | | | | [place], | | | | | | [place] [address] | | | | | | [phone] | | | | | | | | +--------+ + + + + documented as of this encounter Procedures + +--------+ + + + | Procedure Name | Priori | Date/Time | Associated Diagnosis | Comments | | | ty | | | | + +--------+ + + + | DEVICE INTERROGATION | Routin | 03/07/2014 | SINUS BRADYCARDIA | Results for this | | | e | 12:01 PM | Syncope | procedure are in the | | | | PDT | Symptomatic PVCs | results section. | | | | | Pacemaker - | | | | | | Medtronic - [id number] | | | | | | Adapta - Implanted | | | | | | 06/14/2009 | | + +--------+ + + + documented in this encounter Results Device Interrogation (03/07/2014 12:01 PM PDT) + + + | Narrative | Performed At | + + + | Kailey Pruitt RN 03/07/2014 12:01 DEVICE INTERROGATION | | | Name: Moechica Sanchez Date: March 07, 2014 : | | | 1960 Church Warden: Kailey Pruitt RN Device | | | Studio Assistant:Zeo Sense (mV) Impedance (?) Capture (V) | | | Capture (ms) A Lead >5.60 402 1.500 0.09 RV Lead >31.36 522 2.00 | | | 0.09 LV Lead Battery Impedance (?): 528 Battery Voltage (V): | | | 2.79 ND Interval (ms): 147 AR Interval (ms): 217 VA Conduction: | | | Mode Switch Events: 0 % of time: 0 -AIRPORT REFUELING HANDLER: <0.1% AP-AIRPORT REFUELING HANDLER: 0.1% -VS: | | | 23.8% AP-VS: 76.1% AIRPORT REFUELING HANDLER: Magnetic Rate: 85 LINDA: 65 LEAH: Current | | | Underlying Rhythm: Sinus Rhythm, atrial sensed, ventricular sensed | | | 66 beats The sensing test was run in DDD mode at 30 | | | beats per minute. Mode: AAIR<=>DDDR (MVP) AMS (bpm): 175 Rate | | | (bpm): 70 Sensor (on/off): On Max Track (bpm): 130 Upper Sensor | | | Rate (bpm): 130 Hysteresis: Paced AV Delay (ms): 150 Circadian: | | | Sensed AV Delay (ms): 120 PVARP (ms): 310 Sensitivity (mV) | | | Pulse Amplitude (V) Pulse Width (ms) A Lead 0.70 1.500 0.40 RV | | | Lead 5.60 2.000 0.40 LV Lead Comments: Events: No events. | | | PVC singles 2683 PVC R - 4 PAC R - 2 Heart rate histogram shows | | | fair distribution. Normal and stable device function. Estimated | | | remaining device longevity is 7 years. Remote monitoring: None, | | | prefers office. Device interrogation due in 6 months. Electronically | | | signed by: Kailey Pruitt RN 03/07/2014 12:00 | | + + + + + | Procedure Note | + + | Kailey Pruitt RN - 03/07/2014 12:01 PM PDT Formatting of this note might be | | different from the original. DEVICE INTERROGATIONName: Moe Sanchez | | Date: March 07, 2014DOB: 1960 Church Warden: Kailey Pruitt RN Device | | Studio Assistant:Medtronic Sense (mV) Impedance (?) Capture (V) Capture (ms) A Lead >5.60 | | 402 1.500 0.09 RV Lead >31.36 522 2.00 0.09 LV Lead Battery Impedance (?): 528 | | Battery Voltage (V): 2.79 ND Interval (ms): 147 AR Interval (ms): 217 VA Conduction: | | Mode Switch Events: 0 % of time: 0 -AIRPORT REFUELING HANDLER: <0.1% AP-AIRPORT REFUELING HANDLER: 0.1% -VS: 23.8% AP-VS: 76.1% | | AIRPORT REFUELING HANDLER: Magnetic Rate: 85 LINDA: 65 LEAH: Current Underlying Rhythm: Sinus Rhythm, atrial | | sensed, ventricular sensed 66 beats The sensing test was run in DDD mode at 30 | | beats per minute. Mode: AAIR<=>DDDR (MVP) AMS (bpm): 175 Rate (bpm): 70 Sensor | | (on/off): On Max Track (bpm): 130 Upper Sensor Rate (bpm): 130 Hysteresis: Paced AV | | Delay (ms): 150 Circadian: Sensed AV Delay (ms): 120 PVARP (ms): 310 Sensitivity | | (mV) Pulse Amplitude (V) Pulse Width (ms) A Lead 0.70 1.500 0.40 RV Lead 5.60 2.000 0.40 | | LV Lead Comments: Events: No events.PVC singles 2683PVC R - 4PAC R - 2Heart rate | | histogram shows fair distribution. Normal and stable device function.Estimated | | remaining device longevity is 7 years.Remote monitoring: None, prefers office. Device | | interrogation due in 6 months. Electronically signed by: Kailey Pruitt RN 03/07/2014 | | 12:00 | |Mode: AAIR<=>DDDR (MVP) AMS (bpm): 175 [...] |LV Lead | |Comments: | |Events: No events. | |PVC singles 2683 | |PVC R - 4 | |PAC R - 2 | |Heart rate histogram shows fair distribution. | |Normal and stable device function. | |Estimated remaining device longevity is 7 years. | |Remote monitoring: None, prefers office. Device interrogation due in 6 months. Electronica lly signed by: Kailey Pruitt RN 03/07/2014 12:00 | + + documented in this encounter Visit Diagnoses + + | Diagnosis | + + | SINUS BRADYCARDIA - Primary Sinoatrial node dysfunction | + + | Syncope Syncope and collapse | + + | Symptomatic PVCs Other premature beats | + + | Pacemaker - Medtronic - [id number] Adapta - Implanted 06/14/2009 Cardiac pacemaker in situ | + + | Hypertension Unspecified essential hypertension | + + documented in this encounter
--- OUTSIDE RECORDS SUMMARY | ~2019-11-16 | XMS | Encounter Summary ---
Demographics + + + | Address | [address] | | | [place] [address] | + + + | Home Phone [...] [address] | | | | | [place], | [place], | | | | | [place] [address] | [place] [address] | | | | | [phone] | [phone] | | | | | | | [...] | Monitor | | MD [address] [place] | Interrogation | | | | | [place], | (Primary Dx); | | | | | [place] [address] | Presence of | | | | | [phone] | permanent cardiac | | | | [...] Interrogation | | | | | [place], | (Primary Dx); | | | | | [place] [address] | Presence of | | | | | [phone] | permanent cardiac | | | | [...] W | | | | | | [place], | | | | | | [place] [address] | | | | | | [phone] | | | | | | | | +--------+ + + + + documented as of this encounter Visit Diagnoses Not on filedocumented in this encounter"
--- OUTSIDE RECORDS SUMMARY | ~2019-11-16 | XMS | Encounter Summary ---
Demographics + + + | Address | [address] | | | [place] [address] | + + + | Home Phone [...] Team Providers + +------+ + | Care Simplex Operator Name | Role | Phone | + +------+ + | Kirk French MD | PCP | | + +------+ + Encounter Details +--------+ + + + + | Date | Type | Department | Care Team | Description | +--------+ + + + + | 08/10/ | Orders Only | [facility] | [place], | Mixed hyperlipidemia | | 2016 | | [facility] | [place] [address] | (Primary Dx) | | | | [address] [place] | [place], | | | | | [place] | [place] [address] | | | | | [address] | [phone] | | | | | [phone] | | | +--------+ + + + [...] 2018 | Monitor | | MD [address] [place] | Interrogation | | | | | [place], | (Primary Dx); | | | | | [place] [address] | Presence of | | | | | [phone] | permanent cardiac | | | | [...] | Monitor | | MD [address] [place] | Interrogation | | | | | [place], | (Primary Dx); | | | | | [place] [address] | Presence of | | | | | [phone] | permanent cardiac | | | | [...] | 2020 | Visit | | Janeen, MAGNETIC OBSERVER [address] | | | | | | [place], | | | | | | [place] [address] | | | | | | [phone] | | | | | | | | +--------+ + + + + + +------+--------+ + + | Name | Type | Priori | Associated Diagnoses | Order Schedule | | | | ty | | | + +------+--------+ + + | Lipid Panel | Lab | Routin | Mixed | 1 Occurrences | | | | e | hyperlipidemia | starting 07/01/2016 | | | | | | until 06/17/2017 | + +------+--------+ + + documented as of this encounter Visit Diagnoses + + | Diagnosis | + + | Mixed hyperlipidemia - Primary | + + documented in this encounter"
--- OUTSIDE RECORDS SUMMARY | ~2019-11-16 | XMS | Encounter Summary ---
Demographics + + + | Address | [address] | | | [place] [address] | + + + | Home Phone [...] Team Providers + +------+ + | Care Varnishing Machine Operator Name | Role | Phone | + +------+ + PCP | Unavailable | + +------+ + Encounter Details +--------+ + + + + | Date | Type | Department | Care Team | Description | +--------+ + + + + | 11/12/ | Hospital | [facility] | | | | 1994 | Encounter | MED CTR GENERIC OP | | | | | | CONV DEPT [address] | | | | | | [place], | | | | | | [place] [address] | | | | | | [phone] | | | +--------+ + + + [...] Dx); | | | | | [place] [address] | Presence of | | | | | [phone] | permanent cardiac | | | | [...] Interrogation | | | | | [place], | (Primary Dx); | | | | | [place] [address] | Presence of | | | | | [phone] | permanent cardiac | | | | [...] W | | | | | | [place], | | | | | | [place] [address] | | | | | | [phone] | | | | | | | | +--------+ + + + + documented as of this encounter Visit Diagnoses Not on filedocumented in this encounter"
--- OUTSIDE RECORDS SUMMARY | ~2019-11-16 | XMS | Encounter Summary ---
Demographics + + + | Address | [address] | | | [place] [address] | + + + | Home Phone [...] Team Providers + +------+ + | Care National Sales Consultant Name | Role | Phone | + +------+ + PCP | Unavailable | + +------+ + Encounter Details +--------+ + + + + | Date | Type | Department | Care Team | Description | +--------+ + + + + | 12/16/ | Hospital | [facility] | | | | 2010 | Encounter | MED CTR LABORATORY | | | | | | [address] [place] | | | | | | [place] | | | | | | [address] | | | | | | [phone] | | | +--------+ + + + [...] Dx); | | | | | [place] [address] | Presence of | | | | | [phone] | permanent cardiac | | | | [...] 2018 | Monitor | | MD Sim [facility] | Interrogation | | | | | [place], | (Primary Dx); | | | | | [place] [address] | Presence of | | | | | [phone] | permanent cardiac | | | | [...] W | | | | | | [place], | | | | | | [place] [address] | | | | | | [phone] | | | | | | | | +--------+ + + + + documented as of this encounter Visit Diagnoses Not on filedocumented in this encounter"
--- OUTSIDE RECORDS SUMMARY | ~2019-11-16 | XMS | Encounter Summary ---
Demographics + + + | Address | [address] | | | [place] [address] | + + + | Home Phone [...] Team Providers + +------+ + | Care Hired Worker Name | Role | Phone | [...] W | | | | | [place], | [place], | | | | | [place] [address] | [place] [address] | | | | | [phone] | [phone] | | | | | | | [...] | Monitor | | MD [address] [place] | Interrogation | | | | | [place], | (Primary Dx); | | | | | [place] [address] | Presence of | | | | | [phone] | permanent cardiac | | | | [...] 2018 | Monitor | | MD [address] [facility] | Interrogation | | | | | [place], | (Primary Dx); | | | | | [place] [address] | Presence of | | | | | [phone] | permanent cardiac | | | | [...] | | | | | | [place] [address] | | | | | | [phone] | | | | | | | | +--------+ + + + + documented as of this encounter Visit Diagnoses Not on filedocumented in this encounter"
--- OUTSIDE RECORDS SUMMARY | ~2019-11-16 | XMS | Encounter Summary ---
Demographics + + + | Address | [address] | | | [place] [address] | + + + | Home Phone [...] Providers + +------+ + | Care Harness Worker Name | Role | Phone | + +------+ + PCP | Unavailable | + +------+ + Encounter Details +--------+ + + + + | Date | Type | Department | Care Team | Description | +--------+ + + + + | 11/12/ | Hospital | [facility] | | | | 1994 | Encounter | MED CTR GENERIC OP | | | | | | CONV DEPT [address] | | | | | | [place], | | | | | | [place] [address] | | | | | | [phone] | | | +--------+ + + + [...] Dx); | | | | | [place] [address] | Presence of | | | | | [phone] | permanent cardiac | | | | [...] Interrogation | | | | | [place], | (Primary Dx); | | | | | [place] [address] | Presence of | | | | | [phone] | permanent cardiac | | | | [...] | | | | | [place], | | | | | | [place] [address] | | | | | | [phone] | | | | | | | | +--------+ + + + + documented as of this encounter Visit Diagnoses Not on filedocumented in this encounter"
--- OUTSIDE RECORDS SUMMARY | ~2019-11-16 | XMS | Encounter Summary ---
Demographics + + + | Address | [address] | | | [place] [address] | + + + | Home Phone [...] + +------+ + | Care Health Information Specialist Name | Role | Phone | [...] Refill | | 2013 | | [facility] [place] | DO [address] | | | | | [address] | [place] | | | | | [place] | [address] | | | | | [address] | | | | | | [phone] | | | +--------+--------+ + + + [...] | Monitor | | MD [address] | Interrogation | | | | | [place], | (Primary Dx); | | | | | [place] [address] | Presence of | | | | | [phone] | permanent cardiac | | | | [...] | Monitor | | MD [address] | Interrogation | | | | | [place], | (Primary Dx); | | | | | [place] [address] | Presence of | | | | | [phone] | permanent cardiac | | | | [...] | | | | | | [place] [address] | | | | | | [phone] | | | | | | | | +--------+ + + + + documented as of this encounter Visit Diagnoses Not on filedocumented in this encounter"
--- OUTSIDE RECORDS SUMMARY | ~2019-11-16 | XMS | Encounter Summary ---
Demographics + + + | Address | [address] | | | [place] [address] | + + + | Home Phone [...] Providers + +------+ + | Care Mortgage Processor Name | Role | Phone | [...] | Palpitations | [address] | | | | | Procedures | [address] | [address] [place] | | | | | ECHO | [place], | [place], [place] | | | | | Complete | [place] [address] | [address] | | | | | | Phone: | Phone: | | | | | | [phone] | [phone] | | | | | | Fax: | Fax: | | | | | | [phone] | [phone] | +--------+--------+ + + + + Encounter Details +--------+ + + + + | Date | Type | Department | Care Team | Description | +--------+ + + + + | 12/30/ | Hospital | [facility] | TimmyshaistateshaShaistatimmy, | Palpitations | | 2012 - | Encounter | MED CTR XRAY [address] | MD [address] | | | | | [place] | [address] [place], | | | 01/01/ | | [place] [address] | [place] [address] | | | 2012 | | [phone] | [phone] | | | | | | | [...] + + + +---------+ + + | Loris-3 Fatty | CAPS, one capsule by | [...] Interrogation | | | | | [facility], | (Primary Dx); | | | | | [place] [address] | Presence of | | | | | [phone] | permanent cardiac | | | | [...] 2018 | Monitor | | MD Sim [facility] | Interrogation | | | | | [address] [place], | (Primary Dx); | | | | | [place] [address] | Presence of | | | | | [phone] | permanent cardiac | | | | [...] W | | | | | | [place], | | | | | | [place] [address] | | | | | | [phone] | | | | | | | [...] Performed At | + + + | [facility] Diagnostic Imaging | CYGNET | | Department [address] [facility] | [facility] | | [ rep ct [address]] [ rep [facility] | | st zip] Signed | - IMAGING | | | | | Patient Name: MOE GAY | | | Physician: MIGUELINA : 1960 Age: 52 Sex: M Unit | | | #: [id number] Exam Date: 12/30/12 Location: | | | [facility] [place]: [id number] Page: | | | %(RAD)RES..mtdd.print.filter("pg") of %(RAD) | | | RES..mtdd.print.filter("tpg") | | | | | | Accession Number: [id number] | | | E C H O C A R D I O G R A P H Y R E P O R T | | | HEIGHT: 76" WEIGHT: 270# | | | PROTOTYPE TECHNICIAN: JAMEEL REFERRING DR: TIMMY DRAKE DR: [...] | | | Transcribed Date/Time: 12/30/2012 16:34 Hand Spinner: | | | <<Signature on File>> | | | Daljit | | | MD [facility] FASE01/02/13 0955 <Electronically signed by | | | Daljit Singletary MD, [facility], FACP, FASNanette, FASRAUL> Daljit | | | MD [facility] ADELINE 12/30/12 1608 Hand Spinner: Jessica | | | Ybrmksjixoqdj07/08/13 1634 Daljit Singletary MD [facility] | | | ADELINE | | + + + + + + + + | Performing | Address | City/State/Zipcode | Phone Number | | Organization | | | | + + + + + | [facility] | [address] | [place] | [phone] | | [facility] | | [address] | | | - IMAGING | | | | + + + + + documented in this encounter Visit Diagnoses + + | Diagnosis | + + | Palpitations | + + documented in this encounter
--- OUTSIDE RECORDS SUMMARY | ~2019-11-16 | XMS | Encounter Summary ---
Demographics + + + | Address | [address] | | | [place] [address] | + + + | Home Phone [...] Team Providers + +------+ + | Care Disease Intervention Specialist Name | Role | Phone | + +------+ + | Kirk French MD | PCP | | + +------+ + Encounter Details +--------+ + + + + | Date | Type | Department | Care Team | Description | +--------+ + + + + | 01/05/ | Orders Only | [facility] | Emmanuel Daniel MD | | | 2019 | | [facility] | [address], [place] | | | | | PATHOLOGY [address] | [address] [place], [place] | | | | | BLVD [place], [place] | [address] | | | | | [address] | | | | | | [phone] | | | +--------+ + + + [...] 2018 | Monitor | | [address] | Interrogation | | | | | [place], | (Primary Dx); | | | | | [place] [address] | Presence of | | | | | [phone] | permanent cardiac | | | | [...] 2018 | Monitor | | [address] | Interrogation | | | | | [place], | (Primary Dx); | | | | | [place] [address] | Presence of | | | | | [phone] | permanent cardiac | | | | [...] W | | | | | | [place], | | | | | | [place] [address] | | | | | | [phone] | | | | | | | [...] | | | (atherosclerotic heart disease of [place] coronary artery without | | | [...] chronic or | | | microscopic colitis. BES:[facility]:C3NR GROSS DESCRIPTION: A. The | | | specimen, labeled "[place], duodenal biopsy" is received in formalin | | | and consists of seven 0.1-0.5 cm lin fragments. Entirely submitted in | | | (A1). B. The specimen, labeled "[place], right colon" is received | | | in formalin and consists of six 0.2-0.3 cm lin fragments. Entirely | | | submitted in (B1). C. The specimen, labeled "[place], left colon" | | | is received in formalin and consists of six 0.2-0.3 cm lin-pink | | | fragments. Entirely submitted in (C1). am:AMB:portillo PERFORMING | | | LABORATORY: The technical component was performed by [employer] | | | [employer], [address] [place] [address] (Systems Engineer: | | | Kailey Stafford MD; CLIA# [id number]). Professional interpretation was | | | performed by [employer], [facility], [facility] | | | [place] [address] (Systems Engineer: Ishaan | | | Anthony Dao; CLIA#: [id number]). Diagnostician: Ishaan Dao | | | Pathologist [...]
--- OUTSIDE RECORDS SUMMARY | ~2019-11-16 | XMS | Encounter Summary ---
Demographics + + + | Address | [address] | | | [place] [address] | + + + | Home Phone | | + + + | Preferred Language | Unknown | + + + | Marital Status | | + + + | Restorationist Affiliation | 1013 | + + + | Race | Unknown | + + + | Ethnic Group | Unknown | + + + Author + + + | Author | [facility] | | | and [place] | + + + | Organization | [facility] | | [...] Team Providers + +------+ + | Care Container Shop Welder Name | Role | Phone | + [...] | CARDIOLOGY [address] | [address] | (Primary Dx); | | | | [place], | [place], | Tachycardia; | | | | [place] [address] | [place] [address] | Coronary artery | | | | [phone] | [phone] | disease involving | | | | | | [place] coronary | | | | | | artery of [place] | | | | | | heart [...] Dx); | | | | | [place] [address] | Presence of | | | | | [phone] | permanent cardiac | | | | [...] | Monitor | | MD [address] | Interrogation | | | | | [place], | (Primary Dx); | | | | | [place] [address] | Presence of | | | | | [phone] | permanent cardiac | | | | [...] W | | | | | | [place], | | | | | | [place] [address] | | | | | | [phone] | | | | | | | [...] involving | | | | | | [place] coronary | | | | | | artery of [place] | | | | | | heart [...] MD | | | | | | ([id number]) on 06/29/2018 | | | | | [...] + + | Coronary artery disease involving [place] coronary artery of [place] heart without | | angina pectoris | + + | Hypertension, unspecified type | + + documented in this encounter"
--- OUTSIDE RECORDS SUMMARY | ~2019-11-16 | XMS | Encounter Summary ---
Demographics + + + | Address | [address] | | | [place] [address] | + + + | Home Phone | | + + + | Preferred Language | Unknown | + + + | Marital Status | | + + + | Baptism Affiliation | 1013 | + + + | Race | Unknown | + + + | Ethnic Group | Unknown | + + + Author + + + | Author | [facility] | | | and [place] | + + + | Organization | [facility] | | [...] Team Providers + +------+ + | Care Linseed Oil Boiler Name | Role | Phone | + [...] + + | 09/05/ | Office | [facility] | Geri Angel, | SINUS BRADYCARDIA | | 2012 | Visit | CARDIOLOGY [address] | REVIEW MANAGER [address] | (Primary Dx); | | | | [place], | [place], [place] | Symptomatic PVCs; | | | | [place] [address] | [address] | Hypertension; | | | | [phone] | | Hyperlipidemia | +--------+---------+ + + [...] and/or ref er you to electrophysiology in [place]. 3. Return in 3 months, or sooner [...] he did not followup with electrophysiology in [place], so he has remained on diltiaze m [...] Family Status Relation Status Age Mother 62 [place] Father Alive Unknown health Brother Alive Sister [...] by mouth Ken y. 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 There are no [...] he would like to see electrophysiology in [place] rather than [place] as he paulino s family there, if [...] made to ensure accuracy; however, inadvertent computerized spike machine feeder errors may be pre sent. Electronically signed [...] Interrogation | | | | | [place], | (Primary Dx); | | | | | [place] [address] | Presence of | | | | | [phone] | permanent cardiac | | | | | | pacemaker; | | | | | | Sinoatrial node | | | | | | dysfunction (HCC) | | | | | | with symptomatic | | | | | | bradycardia | +--------+ + + + + | 11/20/ | Implant | Cardiology | AnshushaistateshaShaistaanshu, | Remote Device | | 2018 | Monitor | | MD [address] [place] | Interrogation | | | | | [place], | (Primary Dx); | | | | | [place] [address] | Presence of | | | | | [phone] | permanent cardiac | | | | [...] W | | | | | | [place], | | | | | | [place] [address] | | | | | | [phone] | | | | | | | [...]
--- OUTSIDE RECORDS SUMMARY | ~2019-11-16 | XMS | Encounter Summary ---
Demographics + + + | Address | [address] | | | [place] [address] | + + + | Home Phone [...] Providers + +------+ + | Care Front Office Attendant Name | Role | Phone | [...] 2019 | | GASTROENTEROLOGY | [address], [place] | | | | | [address] [place] | [address] [place], [place] | | | | | [address] [place], [place] | [address] | | | | | [address] | | | | | | [phone] | | | +--------+ + + + [...] Interrogation | | | | | [place], | (Primary Dx); | | | | | [place] [address] | Presence of | | | | | [phone] | permanent cardiac | | | | [...] Interrogation | | | | | [place], | (Primary Dx); | | | | | [place] [address] | Presence of | | | | | [phone] | permanent cardiac | | | | [...] | | | | | | [place], | | | | | | [place] [address] | | | | | | [phone] | | | | | | | | +--------+ + + + + documented as of this encounter Visit Diagnoses Not on filedocumented in this encounter"
--- OUTSIDE RECORDS SUMMARY | ~2019-11-16 | XMS | Encounter Summary ---
Demographics + + + | Address | [address] | | | [place] [address] | + + + | Home Phone [...] Providers + +------+ + | Care Digital Account Supervisor Name | Role | Phone | [...] + + | 07/01/ | Hospital | [facility] | Scotty Galdamez, | DDD (degenerative | | 2018 | Encounter | MED CTR XRAY [address] | CENTER DIRECTOR LEAD TEACHER [address] | disc disease), | | | | [place] | [address] | lumbar; Chronic | | | | [place] [address] | [place] [address] | left-sided low back | | | | [phone] | [phone] | pain with left-sided | | | [...] + + + +---------+ + + | Eudora-3 Fatty | CAPS, one capsule by | [...] | | | | | [place], | (Primary Dx); | | | | | [place] [address] | Presence of | | | | | [phone] | permanent cardiac | | | | [...] | 2018 | Monitor | | [address] [place] | Interrogation | | | | | [place], | (Primary Dx); | | | | | [place] [address] | Presence of | | | | | [phone] | permanent cardiac | | | | [...] W | | | | | | [place], | | | | | | [place] [address] | | | | | | [phone] | | | | | | | [...] myelogram injection. Dictated and Signed by: Emmanuel Hunter | | | MD Ediwge Electronically signed: 07/01/2018 3:21 PM | | + + + + + | Procedure Note | + + | Kevin, Rad Results In - 07/01/2018 3:25 PM PDT [...]
--- OUTSIDE RECORDS SUMMARY | ~2019-11-16 | XMS | Encounter Summary ---
Demographics + + + | Address | [address] | | | [place] [address] | + + + | Home Phone [...] Team Providers + +------+ + | Care Mule Operator Name | Role | Phone | + +------+ + | Michael Amanda DO | PCP | | + +------+ + Encounter Details +--------+ + + + + | Date | Type | Department | Care Team | Description | +--------+ + + + + | 04/03/ | Hospital | [facility] | Jay Gambino MD | | | 2012 - | Encounter | HEART MED CTR | [address] | | | | | CARDIAC TRANSPLANT | [address] [place] | | | 04/04/ | | [address] | [place] [address] | | | 2012 | | [place] | [phone] | | | | | [address] | | | | | | [phone] | | | +--------+ + + + [...] 1960 ADMISSION DATE: 04/03/2013 DISCHARGE DATE: 04/04/2013 [id number] / [id number] ADMISSION DIAGNOSES: 1. Symptomatic premature ventricular contractions [...] study and ablati on. MOE GAY ADM:04/03/13 [id number] 04/04/13 [place] DISCHARGE SUMMARY [id number] [facility] APRISA Hughes [facility] MD Meena Pleitez THIS REPORT IS CONFIDENTIAL AND NOT TO BE RELEASED WITHOUT PROPER AUTHORIZATION. [facility] Mr. Gay was taken to the cardiac [...] 180 mg once daily. MOE GAY ADM:04/03/13 [id number] 04/04/13 [place] DISCHARGE SUMMARY [id number] [facility] PARISA Hughes [facility] MD Meena Pleitez THIS REPORT IS CONFIDENTIAL AND NOT TO BE RELEASED WITHOUT PROPER AUTHORIZATION. [facility] 5. Docusate sodium 2 tablets once daily. 6. Marinol 10 mg twice daily. 7. Metoprolol succinate 200 mg once daily. 8. Oxycodone 10 mg 10 mg oral as needed. 9. Oxycodone 30 mg oral twice daily. 10. Pravastatin 40 mg at bedtime. 11. Promethazine 25 mg as needed. 12. Ranitidine 1 to 2 tablets once daily. 13. Orwell oil 2 tablets twice daily. 14. Valacyclovir 500 mg once daily. There were no new medications or medication dosage changes at time of discharge. PLAN: 1. Mr. Gay will be discharged home on medications as noted above, including his usual m edications of diltiazem and metoprolol. 2. He will be seen and followed by Dr. Gambino on 16 at 9:00 a.m. at [facility], [address]. 3. He will contact our office earlier than scheduled appointment should he have any diffic ulty prior to that time. APRISA Hughes MD A P RICHIE/med #[id number] cc: MD Dona Pleitez ARNP Suwong Wongsuwan, MD Electronically Signed 04/12/13 1400 PARISA Hughes Electronically Signed 05/22/13 1245 Jay Gambino MD MOE GAY ADM:04/03/13 [id number] 04/04/13 [place] DISCHARGE SUMMARY [id number] [facility] PARISA Hughes ES B [facility] Jay Gambino MD R THIS REPORT IS CONFIDENTIAL AND NOT TO BE RELEASED WITHOUT PROPER AUTHORIZATION.Electronica lly signed by Jael Brown at 05/22/2013 1:25 PM Dona Grossman ARNP - 04/04/2013 9:05 AM PDT PATIENT NAME: MOE GAY Sex/Age: M / 53Y : 1960 ADMISSION DATE: 04/03/2013 DISCHARGE DATE: 04/04/2013 [id number] / [id number] ADMISSION DIAGNOSES: 1. Symptomatic premature ventricular contractions [...] and ablati on. MOE GAY Jaimee ADM:04/03/13 [id number] 04/04/13 [place] DISCHARGE SUMMARY [id number] [facility] PARISA Hughes [facility] MD Meena Pleitez THIS REPORT IS CONFIDENTIAL AND NOT TO BE RELEASED WITHOUT PROPER AUTHORIZATION. [facility] Mr. Gay was taken to the cardiac [...] 180 mg once daily. MOE GAY ADM:04/03/13 [id number] 04/04/13 [place] DISCHARGE SUMMARY [id number] [facility] PARISA Hughes [facility] MD Meena Pleitez THIS REPORT IS CONFIDENTIAL AND NOT TO BE RELEASED WITHOUT PROPER AUTHORIZATION. [facility] 5. Docusate sodium 2 tablets once daily. 6. Marinol 10 mg twice daily. 7. Metoprolol succinate 200 mg once daily. 8. Oxycodone 10 mg 10 mg oral as needed. 9. Oxycodone 30 mg oral twice daily. 10. Pravastatin 40 mg at bedtime. 11. Promethazine 25 mg as needed. 12. Ranitidine 1 to 2 tablets once daily. 13. Orwell oil 2 tablets twice daily. 14. Valacyclovir 500 mg once daily. There were no new medications or medication dosage changes at time of discharge. PLAN: 1. Mr. Gay will be discharged home on medications as noted above, including his usual m edications of diltiazem and metoprolol. 2. He will be seen and followed by Dr. Gambino on 16 at 9:00 a.m. at [facility], [address]. 3. He will contact our office earlier than scheduled appointment should he have any diffic ulty prior to that time. PARISA Hughes MD A P RICHIE/med #[id number] cc: MD Dona Pleitez ARNP Suwong Wongsuwan, MD Electronically Signed 04/12/13 1400 PARISA Hughes MOE GAY ADM:04/03/13 [id number] 04/04/13 [place] DISCHARGE SUMMARY [id number] [facility] PARISA Hughes [facility] MD Meena Pleitez THIS REPORT IS [...] + + + +---------+ + + | [place]-3 Fatty | CAPS, one capsule by [...] Dx); | | | | | [place] [address] | Presence of | | | | | [phone] | permanent cardiac | | | | [...] Interrogation | | | | | [place], | (Primary Dx); | | | | | [place] [address] | Presence of | | | | | [phone] | permanent cardiac | | | | [...] W | | | | | | [place], | | | | | | [place] [address] | | | | | | [phone] | | | | | | | [...] + + + | Glucose | 94Comment: Kosovan | 65 - 99 mg/dL | [facility] [...] + + | YESSY JONES | [address] | [place] [address] | | | [facility] | | | | | [...] 4.5 | 3.8 - 11.0 K/uL | [facility] | | | | | | [place] | | | | | | HEART [...] + + | YESSY JONES | [address] [place] | [place] [address] | | | [facility] | | | | | LABORATORY | | | | + + + + + documented in this encounter Visit Diagnoses Not on filedocumented in this encounter"
--- OUTSIDE RECORDS SUMMARY | ~2019-11-16 | XMS | Encounter Summary ---
Demographics + + + | Address | [address] | | | [place] [address] | + + + | Home Phone [...] Team Providers + +------+ + | Care Reimbursement Auditor Name | Role | Phone | [...] | | | | stenosis | L, ORNAMENTAL METAL FABRICATOR APPRENTICE [address] | | | | | | Procedures | [address] | | | | | | CT | [address] | | | | | | Myelography | [place], [place] | | | | | | Cervical | [address] | | | | | | Spine | Phone: | | | | | | | [phone] | | | | | | | Fax: | | | | | | | [phone] | | +--------+--------+ + + + + [...] + + | 06/04/ | Hospital | [facility] | [place], | Cervical spinal | | 2016 | Encounter | MED CTR [address] | Marietta Mason ORNAMENTAL METAL FABRICATOR APPRENTICE [address] | stenosis | | | | [place], | [address] | | | | | [place] [address] | [place] [address] | | | | | [phone] | [phone] | | | | | | | [...] + + + +---------+ + + | [place]-3 Fatty | CAPS, one capsule by | [...] Dx); | | | | | [place] [address] | Presence of | | | | | [phone] | permanent cardiac | | | | [...] Interrogation | | | | | [place], | (Primary Dx); | | | | | [place] [address] | Presence of | | | | | [phone] | permanent cardiac | | | | [...] W | | | | | | [place], | | | | | | [place] [address] | | | | | | [phone] | | | | | | | [...]
--- OUTSIDE RECORDS SUMMARY | ~2019-11-16 | XMS | Encounter Summary ---
Demographics + + + | Address | [address] | | | [place] [address] | + + + | Home Phone [...] Team Providers + +------+ + | Care Bus Info Consultant Name | Role | Phone | + +------+ + | Kirk French MD | PCP | | + +------+ + Encounter Details +--------+---------+ + + + | Date | Type | Department | Care Team | Description | +--------+---------+ + + + | 01/05/ | Surgery | [facility] | Emmanuel Daniel MD | EGD | | 2019 | | MED CTR MP INTRA OP | [address], [place] | | | | | [address] | [address] [place], [place] | | | | | [place], [place] | [address] | | | | | [address] | | | | | | [phone] | | | +--------+---------+ + + + [...] for a few hours. Date Last Reviewed: 09/22/201619992100-5014 [employer] [address] [place] [address]. All righ ts reserved. This information is [...] vomiting, or vomiting blood Date Last Reviewed: 05/22/201619990831-1388 [employer] [address] [place] [address]. All righ ts reserved. This information is [...] You can't be awakened Date Last Reviewed: 09/08/201619992636-7923 [employer]. [address] [place] [address], [place] [address]. All righ ts reserved. This information is [...] + + + +---------+ + + | Keiser-3 Fatty | CAPS, one capsule by | [...] | Monitor | | MD [address] | Interrogation | | | | | [place], | (Primary Dx); | | | | | [place] [address] | Presence of | | | | | [phone] | permanent cardiac | | | | [...] | Monitor | | MD [address] | Interrogation | | | | | [place], | (Primary Dx); | | | | | [place] [address] | Presence of | | | | | [phone] | permanent cardiac | | | | | | pacemaker; | | | | | | Sinoatrial node | | | | | | dysfunction (HCC) | | | | | | with symptomatic | | | | | | bradycardia | +--------+ + + + + | 01/01/ | Office | Cardiology | [place], | | | 2020 | Visit | | PARISA [place] [address] | | | | | | [place], | | | | | | [place] [address] | | | | | | [phone] | | | | | | | | +--------+ + + + + documented as of this encounter Procedures + +--------+ + + + | Procedure Name | Priori | Date/Time | Associated Diagnosis | Comments | | | ty | | | | + +--------+ + + + | RESULT | Routin | 01/05/2019 | | Results for this | | (NON-ORD)[facility] | e | 8:54 AM | | [...] 100-200, | REFERENCE LAB | | [place] [id number] Kitchen Assistant: Miguel Galarza MD, Phone: | [facility] - KINA | | [phone] | | + + + + + + + + | Performing | Address | City/State/Zipcode | Phone Number | | Organization | | | | + + + + + | REFERENCE LAB | [address] | [place] [address] | [phone] | | [facility] | [address] | | [...] [place] [address], | REFERENCE LAB | | [place], [place] [id number] Kitchen Assistant: Miguel Galarza MD, Phone: | [facility] | | [phone] | | + + + + + + + + | Performing | Address | City/State/Zipcode | Phone Number | | Organization | | | | + + + + + | REFERENCE LAB | [address] [facility] | [place] [address] | [phone] | | [facility] | Drive [...] | , Qual | | | [facility] | [...] [address] | [place] | [phone] | | [facility] | | [address] | | | - LABORATORY | | [...] [address] | [place] | [phone] | | [facility] | | [address] | | | - LABORATORY | | [...] | | | dium | | | MICHELLE | | | Antigen | | | MEDICAL | | | | | | CENTER - | | | | | | LABORATORY | | + + + + + + + + | Specimen | + + | Stool - Stool | | specimen (specimen) | + + + + + + + | Performing | Address | City/[facility] | Phone Number | | Organization | | | | + + + + + | [facility] | [address] | [place] | [phone] | | [facility] | | [address] | | | - LABORATORY | | [...] + | [facility] | [address] | [place] | [phone] | | [facility] | | [address] | | | - LABORATORY | | [...] [address] | [place] | [phone] | | [facility] | | [address] | | | - LABORATORY | | [...] pylori Ag | | | [address] [facility] | [...] [address] | [place] | [phone] | | [facility] | | [address] | | | - LABORATORY | | | | + + + + + EGD (01/05/2019 8:36 AM PST) + + | Specimen | + + | | + + + + -+ | Narrative | Performed At | + + -+ | | [facility] | | GastroenterologyPatient Name: Moe Venegas Date: | PROVATION | | 01/05/2019 8:36 AMMRN: [id number] #: [id number] of : | | | 1960dmit Type: AmbulatoryAge: 58Room: [facility] 01Gender: MaleNote | | | Status: FinalizedAttending MD: Emmanuel Daniel , MDProcedure: | | | Upper GI endoscopyIndications: Diarrhea, Weight | | | lossProviders: Emmanuel Daniel MD, Heidi Gonzalezchfield, | | | RN, Kim Hicks, Dog Food Shredder Operator, | | | Jarett Barakat MD (Anesthesia [...] physician, the nurse, the anesthesiologist and the claims technician | | | in the endoscopy [...] | | Imaging was performed using the [employer] | | | Endoscopy (FICE) [...] Scope In: 8:43:57 AMScope Out: 8:49:50 AM [facility]. | | | [facility], [address] [place] [address] | | | [phone] | | |Recommendation: | | | - [...] |Scope Out: 8:49:50 AM | | | [facility]. [facility], [address] [place] [address] | | | [address] | | + + -+ + +---------+ [...] | PROVATION | | 01/05/2019 8:36 AMMRN: [id number] #: [id number] of : | | | 9Admit Type: AmbulatoryAge: 58Room: [facility] 01Gender: MaleNote | | | Status: FinalizedAttending MD: Emmanuel Daniel [facility]: | | | ColonoscopyIndications: Clinically significant diarrhea of | | | unexplained origin, Weight lossProviders: | | | Emmanuel Daniel MD, Heidi An RN, Elwin | | | Fiorella Hicks, Dog Food Shredder Operator, Jarett Quezada. | | | MD Roshni (Anesthesia Staff)Referring [...] | | | the anesthesiologist and the claims technician in the endoscopy suite. | | [...] AMScope Out: | | | 9:06:28 AM [facility], [address] [facility], | | | [place] [address] | | | - Discharge patient to [...] |Scope Out: 9:06:28 AM | | | [facility], [address] [facility], [place], [place] | | | [address] | | + + -+ + +---------+ [...] | | | (atherosclerotic heart disease of [place] coronary artery without | | | angina [...] | | | microscopic colitis. BES:[facility]:C3NR GROSS DESCRIPTION: A. The | | | specimen, labeled "Laura, duodenal biopsy" is received in formalin | | | and consists of seven 0.1-0.5 cm lin fragments. Entirely submitted in | | | (A1). B. The specimen, labeled "[place], right colon" is received | | | in formalin and consists of six 0.2-0.3 cm lin fragments. Entirely | | | submitted in (B1). C. The specimen, labeled "[place], left colon" | | | is received in formalin and consists of six 0.2-0.3 cm lin-pink | | | fragments. Entirely submitted in (C1). am:AMB:portillo PERFORMING | | | LABORATORY: The technical component was performed by [employer] | | | [employer], [address] [place] [address] (Manager Utilization: | | | Kailey Stafford MD; CLIA# [id number]). Professional interpretation was | | | performed by [facility], [facility], [facility] | | | [place] [address] (Manager Utilization: Ishaan | | | Anthony Dao; CLIA#: [id number]). Diagnostician: Ishaan Fitzpatrick | | | Sylwia [...] ONCE PRN, Wheezing, | | | Starting [facility] 01/05/19 at 0924, | | | For [...] | mL/hr | | | CONTINUOUS, Starting [facility] 01/05/19 | | AM PST | | | | | at 0800, Pre-op | | | | | | + +---------+ +---+-------+---+ + +---+ | | | + +---+ | ondansetron (ZOFRAN) injection | | | 4 mg 4 mg, Oral, EVERY 4 HOURS | | | PRN, Nausea, Vomiting, Starting | | | [facility] 01/05/19 at 0924, | | | Recovery/Phase I | | + +---+ | | | + +---+ | ondansetron (ZOFRAN) injection | | | 4 mg 4 mg, Intravenous, ONCE | | | PRN, Nausea, Starting Talia 01/05/19 | | | at 0924, For 1 dose, | | | Recovery/Phase I | | + +---+ | | | + +---+ documented in this encounter
--- OUTSIDE RECORDS SUMMARY | ~2019-11-16 | XMS | Encounter Summary ---
Demographics + + + | Address | [address] | | | [place] [address] | + + + | Home Phone [...] Team Providers + +------+ + | Care Marriage Performer Name | Role | Phone | [...] + | 10/04/ | Telephone | [facility] | Daljit Sinlgetary, | Other (Records sent) | | 2012 | | CARDIOLOGY [address] | MD [address] | | | | | [place], | [place], | | | | | [place] [address] | [place] [address] | | | | | [phone] | [phone] | | | | | | | [...] | Monitor | | MD [address] | Interrogation | | | | | [place], | (Primary Dx); | | | | | [place] [address] | Presence of | | | | | [phone] | permanent cardiac | | | | [...] | Monitor | | MD [address] | Interrogation | | | | | [place], | (Primary Dx); | | | | | [place] [address] | Presence of | | | | | [phone] | permanent cardiac | | | | [...] | | | | | | [place] [address] | | | | | | [phone] | | | | | | | | +--------+ + + + + documented as of this encounter Visit Diagnoses Not on filedocumented in this encounter"
--- OUTSIDE RECORDS SUMMARY | ~2019-11-16 | XMS | Encounter Summary ---
Demographics + + + | Address | [address] | | | [place] [address] | + + + | Home Phone [...] Providers + +------+ + | Care Telephone Information Clerk Name | Role | Phone | [...] [address] | | | | | [address] | [place] | | | | | [phone] | [address] | | | | | | | [...] [address] [facility] | Interrogation | | | | | [place], | (Primary Dx); | | | | | [place] [address] | Presence of | | | | | [phone] | permanent cardiac | | | | [...] 2018 | Monitor | | [address] | Interrogation | | | | | [place], | (Primary Dx); | | | | | [place] [address] | Presence of | | | | | [phone] | permanent cardiac | | | | [...] W | | | | | | [place], | | | | | | [place] [address] | | | | | | [phone] | | | | | | | | +--------+ + + + + documented as of this encounter Visit Diagnoses Not on filedocumented in this encounter"
--- OUTSIDE RECORDS SUMMARY | ~2019-11-16 | XMS | Encounter Summary ---
Demographics + + + | Address | [address] [place] [address] | | | [place] [address] | + + + | Home Phone | | + + + | Preferred Language | Unknown | + + + | Marital Status | | + + + | Confucianist Affiliation | Unknown | + + + | Race | White | + + + | Ethnic Group | Not or | + + + Author + + + | Author | [facility] | + + + | Organization | [facility] | + + + | Address | Unknown | + + + | Phone | Unavailable | + + + Support + + + + + | Name | Relationship | Address | Phone | + + + + + | Rachel Valencia | ELIE[address]ER | [place] | | | | | [address] | | + + + + + Care Team Providers + +------+ + | Care Mixer Operator Helper Hot Metal Name | Role | Phone | + [...] | | 2019 | | Center at [facility] [address] | [address] | | | | | [address] | [place], [place] | | | | | Mailcode: [place] | [address] | | | | | [facility] and | [phone] | | | | | [place] [address] | | | | | | [place], [place] | | | | | | [address] | | | | | | [phone] | | | +--------+ + + + [...]
--- OUTSIDE RECORDS SUMMARY | ~2019-11-16 | XMS | Encounter Summary ---
Demographics + + + | Address | [address] | | | [place] [address] | + + + | Home Phone [...] Providers + +------+ + | Care Health Program Specialist Name | Role | Phone [...] | | CARDIOLOGY [address] | [address] | | | | | [place], | [place], | | | | | [place] [address] | [place] [address] | | | | | [phone] | [phone] | | | | | | | [...] | Monitor | | MD [address] | Interrogation | | | | | [place], | (Primary Dx); | | | | | [place] [address] | Presence of | | | | | [phone] | permanent cardiac | | | | [...] | Monitor | | MD [address] | Interrogation | | | | | [place], | (Primary Dx); | | | | | [place] [address] | Presence of | | | | | [phone] | permanent cardiac | | | | | | pacemaker; | | | | | | Sinoatrial node | | | | | | dysfunction (HCC) | | | | | | with symptomatic | | | | | | bradycardia | +--------+ + + + + | 02/10/ | Office | Cardiology | [place], | | | 2020 | Visit | | PARISA Vernon [address] | | | | | | [place], | | | | | | [place] [address] | | | | | | [phone] | | | | | | | | +--------+ + + + + documented as of this encounter Visit Diagnoses Not on filedocumented in this encounter"
--- OUTSIDE RECORDS SUMMARY | ~2019-11-16 | XMS | Encounter Summary ---
Demographics + + + | Address | [address] [place] [address] | | | [place] [address] | + + + | Home Phone | | + + + | Preferred Language | Unknown | + + + | Marital Status | | + + + | Episcopal Affiliation | Unknown | + + + [...] [place] | | | | | [address] | | + + + + + Care Team Providers + +------+ + | Care Construction Project Mgr Name | Role | Phone | + [...] Center at [facility] [address] | MD [address] | results) | | | | [address] | [place], [place] | | | | | Mailcode: [place] | [address] | | | | | for Health and | [phone] | | | | | [facility], [facility] [address] | | | | | | [place], [place] | | | | | | [address] | | | | | | [phone] | | | +--------+ + + + [...]
--- OUTSIDE RECORDS SUMMARY | ~2019-11-16 | XMS | Encounter Summary ---
Demographics + + + | Address | [address] | | | [place] [address] | + + + | Home Phone [...] Team Providers + +------+ + | Care Pv Design Engineer Name | Role | Phone | + +------+ + PCP | Unavailable | + +------+ + Encounter Details +--------+ + + + + | Date | Type | Department | Care Team | Description | +--------+ + + + + | 06/03/ | Hospital | [facility] | | | | 2008 | Encounter | MED CTR EMERGENCY | | | | | | [place] [address] | | | | | | [place] | | | | | | [address] | | | | | | [phone] | | | +--------+ + + + [...] Dx); | | | | | [place] [address] | Presence of | | | | | [phone] | permanent cardiac | | | | [...] Interrogation | | | | | [place], | (Primary Dx); | | | | | [place] [address] | Presence of | | | | | [phone] | permanent cardiac | | | | [...] W | | | | | | [place], | | | | | | [place] [address] | | | | | | [phone] | | | | | | | | +--------+ + + + + documented as of this encounter Visit Diagnoses Not on filedocumented in this encounter"
--- OUTSIDE RECORDS SUMMARY | ~2019-11-16 | XMS | Encounter Summary ---
Demographics + + + | Address | [address] | | | [place] [address] | + + + | Home Phone [...] Team Providers + +------+ + | Care Stack Yield Engineer Name | Role | Phone | [...] visit | CARDIOLOGY [address] | [address] | reprogramming/check | | | | [place], | [place], | DO NOT DELETE | | | | [place] [address] | [place] [address] | (Primary Dx); | | | | [phone] | [phone] | Sinoatrial node | | | | [...] | Monitor | | MD [address] | Interrogation | | | | | [place], | (Primary Dx); | | | | | [place] [address] | Presence of | | | | | [phone] | permanent cardiac | | | | [...] | Monitor | | MD [address] | Interrogation | | | | | [place], | (Primary Dx); | | | | | [place] [address] | Presence of | | | | | [phone] | permanent cardiac | | | | [...] W | | | | | | [place], | | | | | | [place] [address] | | | | | | [phone] | | | | | | | [...] Daljit | VIOLETTEART | | MD Gem[facility] 12/29/2016 13:41 PATIENT [...]
--- OUTSIDE RECORDS SUMMARY | ~2019-11-16 | XMS | Encounter Summary ---
Demographics + + + | Address | [address] | | | [place] [address] | + + + | Home Phone [...] Team Providers + +------+ + | Care Real Estate Portfolio Manager Name | Role | Phone | [...] + | 06/27/ | Telephone | [facility] | Michael Amanda, | ED Follow-up (s/p | | 2014 | | MEDIC[place] | DO [address] | [facility]) | | | | [address] | [place] | | | | | [place] | [address] | | | | | [address] | | | | | | [phone] | | | +--------+ + + + [...] | Monitor | | MD [address] | Interrogation | | | | | [place], | (Primary Dx); | | | | | [place] [address] | Presence of | | | | | [phone] | permanent cardiac | | | | [...] 2018 | Monitor | | [address] | Interrogation | | | | | [place], | (Primary Dx); | | | | | [place] [address] | Presence of | | | | | [phone] | permanent cardiac | | | | [...] [place], | | | | | | [place] [address] | | | | | | [phone] | | | | | | | | +--------+ + + + + documented as of this encounter Visit Diagnoses Not on filedocumented in this encounter"
--- OUTSIDE RECORDS SUMMARY | ~2019-11-16 | XMS | Encounter Summary ---
Demographics + + + | Address | [address] | | | [place] [address] | + + + | Home Phone [...] Team Providers + +------+ + | Care Driver Education Road Instructor Name | Role | Phone | + +------+ + | Kirk French MD | PCP | | + +------+ + Encounter Details +--------+ + + + + | Date | Type | Department | Care Team | Description | +--------+ + + + + | 12/24/ | [facility] | [facility] | Emmanuel Daniel MD | Pain of upper | | 2018 | Encounter | MED CTR MP INTRA OP | [address], [place] | abdomen (Primary | | | | [address] | [address] [place], [place] | Dx); Functional | | | | [place], [place] | [address] | diarrhea; Weight | | | | [address] | | loss | | | | [phone] | | | +--------+ + + + [...] + + + +---------+ + + | [place]-3 Fatty | CAPS, one capsule by | [...] Dx); | | | | | [place] [address] | Presence of | | | | | [phone] | permanent cardiac | | | | [...] | 2018 | Monitor | | [address] [facility] | Interrogation | | | | | [place], | (Primary Dx); | | | | | [place] [address] | Presence of | | | | | [phone] | permanent cardiac | | | | [...] W | | | | | | [address] [place], | | | | | | [place] [address] | | | | | | [phone] | | | | | | | [...] + | Performed at: 01 - [facility] [place] [address], | REFERENCE LAB | | [place], [place] [id number] Contracts Intern: William Andrew MD, Phone: | [facility]KR | | [phone] | | + + + + + + + + | Performing | Address | City/State/Zipcode | Phone Number | | Organization | | | | + + + + + | REFERENCE LAB | [address] | [place] [address] | [phone] | | [facility] | Drive [...] ST. | [address] | [place], [place] | [phone] | | [facility] | | [address] | | | - LABORATORY | | [...] [address] | [place] | [phone] | | [facility] | | [address] | | | - LABORATORY | | [...] | Shigatoxin | Negative | Negative | PROVIDERAULE | | | 2 | | | [...] [address] | [place] | [phone] | | [facility] | | [address] | | | - LABORATORY | | [...] + | Performed at: 01 - [facility] [place] [address], | REFERENCE LAB | | [place], [place] [id number] Contracts Intern: William Andrew MD, Phone: | THALIARP - KINA | | [phone] | | + + + + + + + + | Performing | Address | City/State/Zipcode | Phone Number | | Organization | | | | + + + + + | REFERENCE LAB | [address] | [place] [address] | [phone] | | [facility] | Drive [...] ST. | [address] | [place] | [phone] | | [facility] | | [address] | | | - LABORATORY | | [...] | | | Antigen, | | | STJuan Diego MICHELLE | | | Stool | | [address] | [place] | [phone] | | [facility] | | [address] | | | - LABORATORY | | [...] + | [facility] | [address] | [place] | [phone] | | [facility] | | [address] | | | - LABORATORY | | [...] exists on the effects | | [facility] | | | EIA | of [...] + | [facility] | [address] | [place] | [phone] | | [facility] | | [address] | | | - LABORATORY | | [...] [address] | [place] | [phone] | | [facility] | | [address] | | | - LABORATORY | | | | + + + + + EGD (12/24/2017 1:19 PM PST) + + | Specimen | + + | | + + + + -+ | Narrative | Performed At | + + -+ | | [facility] | | GastroenterologyPatient Name: Moe SanchezProcedure Date: 12/24/2017 | [place] | | 1:19 PMMRN: [id number] #: [id number] of : | | | 9Admit Type: AmbulatoryAge: 57Room: [facility] 01Gender: MaleNote | | | Status: FinalizedAttending MD: Emmanuel Daniel , [facility]: | | | Upper GI endoscopyIndications: Diarrhea, Weight | | | lossProviders: Emmanuel Daniel MD, Maria Isabel Morris RN, | | | Kim Hicks, Pet Counselor, [place] | | | Sapna Barakat MD (Anesthesia [...] the anesthesiologist and | | | the nuclear plant instrument technician in the endoscopy suite. Mental Status [...] PMScope Out: 1:31:13 PM | | | [facility], [address] [facility] | | | [place] [address] | | | - Discharge patient to [...] |Scope Out: 1:31:13 PM | | | [facility], [address], [place] | | | [address] | | + + -+ + +---------+ + + | Performing | Address | City/State/[facility] Centercode | Phone Number | [...] | [facility] | | GastroenterologyPatient Name: [facility] Date: 12/24/2017 | [place] | | 1:17 PMMRN: [id number] #: [id number] of : | | | 9Admit Type: AmbulatoryAge: 57Room: [facility] 01Gender: MaleNote | | | Status: FinalizedAttending MD: Emmanuel Daniel , MDProcedure: | | | ColonoscopyIndications: Clinically significant diarrhea of | | | unexplained originProviders: Emmanuel Daniel MD, Joanne | | | Arturo, [place], Kim Hicks, Pet Counselor, | | | Jarett Barakat MD (Anesthesia [...] Scope In: 1:32:55 PMScope Out: 1:48:57 PM [facility] | | | [facility], [address] [place] [address] | | | [phone] | | | - Await pathology results. [...] |Scope Out: 1:48:57 PM | | | [facility], [address], [place] | | | [address] | | + + -+ + +---------+ [...] | colonic mucosa with focal adenomatous change. CLR:[facility]:C2NR | | | GROSS DESCRIPTION: Received in four parts. A. Received in | | | formalin labeled "Freddie Nelson" and labeled "duodenal bx" on | | | the requisition are six pink-lin tissue fragments measuring from | | | 0.3-0.8 cm submitted, all in (A1). B. Received in formalin labeled | | | "Moe Conrad, C." and labeled "B, left colon bx" on the | | | requisition are five pink-lin tissue fragments measuring from 0.2-09.9 | | | cm, submitted, all in (B1). C. Received in formalin labeled | | | "Moe Conrad, D." and labeled "C, bx TI" on the requisition are | | | six matias-pink and lin colored tissue fragments measuring from 0.5 cm, | | | submitted, all in (C1). D. Received in formalin labeled "Moe | | | Conrad, E. ASC" and labeled "D. ascending colon bx" on the | | | requisition are nine pink-lin tissue fragments measuring from 0.15-0.5 | | | cm, submitted, all in (D1). ka:CLR:[facility] ADDITIONAL NOTES: | | | Immunohistochemical studies were performed on this case with the | | | appropriate positive controls that react as expected. This test was | | | developed and its performance characteristics determined by [facility] | | | [employer]. It has not been cleared or approved by the U.S. Food | | | and Drug Administration. The FDA has determined that such clearance | | | or approval is not necessary. This test is used for clinical | | | purposes. It should not be regarded as investigational or for | | | research. [facility] is certified under the Clinical | | | Laboratory Improvement Amendments of 1988 (CLIA) as qualified to | | | perform high complexity clinical laboratory testing. This assay | | | has not been validated for specimens that have been decalcified. | | | PERFORMING LABORATORY: Tissue processing and slide preparation were | | | performed by [facility], [address], [facility] | | | [place] [address] (Extension Service Advisor: Evan Frausto M.D. CLIA#: | | | [id number]). Professional interpretation was performed by [facility] | | | [employer], [address], [place] [address] | | | (Extension Service Advisor: Evan Frausto M.D.; CLIA#: [id number]). | | | Diagnostician: Rafael Bales MD [...] glucose < 50, | | | Starting Wed12/24/17 at 1359, | | | Repeat in [...]
--- OUTSIDE RECORDS SUMMARY | ~2019-11-16 | XMS | Encounter Summary ---
Demographics + + + | Address | [address] | | | [place] [address] | + + + | Home Phone [...] Team Providers + +------+ + | Care Salon Assistant Name | Role | Phone | + +------+ + | Kirk French MD | PCP | | + +------+ + Encounter Details +--------+ + + + + | Date | Type | Department | Care Team | Description | +--------+ + + + + | 10/18/ | Orders Only | [facility] | Kirk French | | | 2017 | | [address] | | | | | [place], [place] | [address] | | | | | [address] | [place] [address] | | | | | [phone] | [phone] | | | | | | | [...] | 11/20/ | Implant | Cardiology | AnshumarianacrispinDaljit villarreal, | Remote Device | | 2018 | Monitor | | MD [address] | Interrogation | | | | | [place], | (Primary Dx); | | | | | [place] [address] | Presence of | | | | | [phone] | permanent cardiac | | | | [...] 2018 | Monitor | | MD [facility] | Interrogation | | | | | [place], | (Primary Dx); | | | | | [place] [address] | Presence of | | | | | [phone] | permanent cardiac | | | | [...] | | | | | | [place], | | | | | | [place] [address] | | | | | | [phone] | | | | | | | [...] for this | | | e | 10:58 AM | | procedure are in the | | | | PST | | results section. | + +--------+ + + + | LIPID PANEL | Routin | 10/18/2017 | | Results for this | | | e | 10:58 AM | | procedure are in the | | | | PST | | results section. | + +--------+ + + + | COMPREHENSIVE | Routin | 10/18/2017 | | Results for this | | METABOLIC PANEL | e | 10:58 AM | | procedure are in the | | | | PST | | results section. | + +--------+ + + + documented in this encounter Results External Lab: CBC (10/18/2017 10:58 AM PST) + + + + + + | Component | Value | Ref Range | Performed | Pathologist | | | | | At | Signature | + + + + + + | WBC | 6.01 | 3.80 - 11.00 | EXTERNAL | | | | | 10*3/uL | LAB | | + + + + + + | RED CELL | 4.90 | 4.20 - 5.70 | EXTERNAL | | | COUNT | | 10*6/uL | LAB | | + + + + + + | Hgb | 16.7 | 13.2 - 17.0 | EXTERNAL | | | | | g/dL | LAB | | + + + + + + | Hematocrit, | 48.3 | 39.0 - 50.0 % | EXTERNAL | | | POC | | | LAB | | + + + + + + | MCV | 98.7 | 80.0 - 100.0 fL | EXTERNAL | | | | | | LAB | | + + + + + + | MCH | 34.1 (H) | 27.0 - 34.0 pg | EXTERNAL | | | | | | LAB | | + + + + + + | MCHC | 34.5 | 32.0 - 35.5 | EXTERNAL | | | | | g/dL | LAB | | + + + + + + | RDW-CV | 45.5 | 37 - 53 fL | EXTERNAL | | | | | | LAB | | + + + + + + | Platelet | 131 (L) | 150 - 400 | EXTERNAL [...] + + + | % Segmented | 62.65 | % | EXTERNAL | | | | | | LAB | | | Neutrophils | | | | | + + + + + + | % | 26.57 | % | EXTERNAL | | | Lymphocytes | | | LAB | | + + + + + + | % Monocytes | 8.77 | % | EXTERNAL | | | | | | LAB | | + + + + + + | % | 1.21 | % | EXTERNAL | | | Eosinophils | | | LAB | | + + + + + + | % Basophils | 0.80 | % | EXTERNAL | | | | | | LAB | | + + + + + + | Absolute | 3.76 | 1.90 - 7.40 | EXTERNAL | | | Segmented | | 10*3/uL | LAB | | | Neutrophils | | | | | + + + + + + | Absolute | 1.60 | 1.00 - 3.90 | EXTERNAL | | | Lymphocytes | | 10*3/uL | LAB | | + + + + + + | Absolute | 0.53 | 0.00 - 0.80 | EXTERNAL | | | Monocytes | | 10*3/uL | LAB | | + + + + + + | Absolute | 0.07 | 0.00 - 0.50 | EXTERNAL | [...] | + +---------+ + + Lipid Panel (10/18/2017 10:58 AM PST) + +-------+ + + + | Component | Value | Ref Range | Performed | Pathologist | | | | | At | Signature | + +-------+ + + + | Cholesterol | 152 | mg/dL | EXTERNAL | | | | | | LAB | | + +-------+ + + + | Triglycerid | 63 | mg/dL | EXTERNAL | | | es | | | LAB | | + +-------+ + + + | HDL | 63 | mg/dL | EXTERNAL | | | | | | LAB | | + +-------+ + + + | LDL | 76 | mg/dL | EXTERNAL | | | [...] + +---------+ + + Comprehensive Metabolic Panel (10/18/2017 10:58 AM PST) + + + + + [...] + + + + | Glucose, | 100 (H) | 65 - 99 mg/dL | EXTERNAL | | | Fasting | | | LAB | | + + + + + + | BUN | 10 | 8 - 25 mg/dL | EXTERNAL | | | | | | LAB | | + + + + + + | Creatinine | 0.9 | 0.70 - 1.30 | EXTERNAL | | | | | mg/dL | LAB | | + + + + + + | BUN/Creatin | 11 | | EXTERNAL | | | ine Ratio | | | LAB | | + + + + + + | Calcium | 9.5 | 8.5 - 10.5 | EXTERNAL | | | | | mg/dL | LAB | | + + + + + + | Protein, | 6.8 | 6.3 - 8.2 g/dL | EXTERNAL | | | Total | | | LAB | | + + + + + + | Albumin | 3.9 | 3.6 - 5.0 g/dL | EXTERNAL [...] 0.7 | 0.1 - 1.5 mg/dL | EXTERNAL | | | Total | | | LAB | | + + + + + + | ALP, | 79 | 35 - 115 U/L | EXTERNAL | | | External | | | LAB | | + + + + + + | AST | 25 | 10 - 45 U/L | EXTERNAL | | | | | | LAB | | + + + + + + | ALT | 28 | 10 - 65 U/L | EXTERNAL [...]
--- OUTSIDE RECORDS SUMMARY | ~2019-11-16 | XMS | Encounter Summary ---
Demographics + + + | Address | [address] | | | [place] [address] | + + + | Home Phone [...] Providers + +------+ + | Care Sr. Director Name | Role | Phone | [...] [address] | | | | [place], | [place], | | | | | [place] [address] | [place] [address] | | | | | [phone] | [phone] | | | | | | | [...] | Monitor | | MD [address] | Interrogation | | | | | [place], | (Primary Dx); | | | | | [place] [address] | Presence of | | | | | [phone] | permanent cardiac | | | | [...] | | MD [facility] | Interrogation | | | | | [place], | (Primary Dx); | | | | | [place] [address] | Presence of | | | | | [phone] | permanent cardiac | | | | [...] W | | | | | | [place], | | | | | | [place] [address] | | | | | | [phone] | | | | | | | | +--------+ + + + + documented as of this encounter Visit Diagnoses Not on filedocumented in this encounter"
--- OUTSIDE RECORDS SUMMARY | ~2019-11-16 | XMS | Encounter Summary ---
Demographics + + + | Address | [address] | | | [place] [address] | + + + | Home Phone [...] Providers + +------+ + | Care Dental Director Name | Role | Phone | [...] + + | 02/15/ | [facility] | [facility] | Jay Cohn PA | DIDIER (obstructive | | 2012 | Visit | SLEEP DISORDER [address] | [address] | sleep apnea) | | | | [address] [place] | [place] | (Primary Dx) | | | | [place] [address] | [address] | | | | | [phone] | | | +--------+---------+ + + + [...] PDTGo to [facility] in [place] for replacement equipment including: Nasal pillows or [...] pillows obtained from: [facility] [place] pressure is: 13 cm CPAP download shows [...] to go to [facility] in [place] to replace his equipment, but it had [...] to go to [facility] in [place] to g et a new mask and filter. He is to work toward wearing his CPAP 100% of the time he is asle ep. I will follow up again in 1 month, sooner prn. Fifteen minutes were spent lpld-wy-pydi, wi th the majority of time spent [...] 2018 | Monitor | | [address] | Interrogation | | | | | [place], | (Primary Dx); | | | | | [place] [address] | Presence of | | | | | [phone] | permanent cardiac | | | | [...] 2018 | Monitor | | [address] | Interrogation | | | | | [place], | (Primary Dx); | | | | | [place] [address] | Presence of | | | | | [phone] | permanent cardiac | | | | [...] | | | | | [place], | | | | | | [place] [address] | | | | | | [phone] | | | | | | | | +--------+ + + + + documented as of this encounter Visit Diagnoses + + | Diagnosis | + + | DIDIER (obstructive sleep apnea) - Primary Obstructive sleep apnea (adult) (pediatric) | + + documented in this encounter"
--- OUTSIDE RECORDS SUMMARY | ~2019-11-16 | XMS | Encounter Summary ---
Demographics + + + | Address | [address] | | | [place] [address] | + + + | Home Phone [...] Team Providers + +------+ + | Care Crop Picker Name | Role | Phone | + [...] | CARDIOLOGY [address] | Interrogation | | | | [place], | [place], | (Primary Dx); | | | | [place] [address] | [place] [address] | Presence of | | | | [phone] | [phone] | permanent cardiac | | | | [...] Interrogation | | | | | [place], | (Primary Dx); | | | | | [place] [address] | Presence of | | | | | [phone] | permanent cardiac | | | | [...] | 2019 | Monitor | | [address] | Interrogation | | | | | [place], | (Primary Dx); | | | | | [place] [address] | Presence of | | | | | [phone] | permanent cardiac | | | | [...] W | | | | | | [place], | | | | | | [place] [address] | | | | | | [phone] | | | | | | | [...] | Daljit | MODESTO | | MD eGmini 10/28/2018 13:33Date of Remote Interrogation: | | | 11/9/18 Refer to [facility] documentation and remote PDF scanned into | | | [facility] for remote interrogation results. Data collected by [...]
--- OUTSIDE RECORDS SUMMARY | ~2019-11-16 | XMS | Encounter Summary ---
Demographics + + + | Address | [address] | | | [place] [address] | + + + | Home Phone [...] Team Providers + +------+ + | Care Tar Kettle Runner Name | Role | Phone | [...] | CARDIOLOGY [address] | MD [address] [place] | | | | | [place], | [place], | | | | | [place] [address] | [place] [address] | | | | | [phone] | | | | | | | [...] | 11/20/ | Implant | Cardiology | AnshuDaljit carmona, | Remote Device | | 2018 | Monitor | | MD [address] [place] | Interrogation | | | | | [place], | (Primary Dx); | | | | | [place] [address] | Presence of | | | | | [phone] | permanent cardiac | | | | [...] | 2018 | Monitor | | [address] [place] | Interrogation | | | | | [place], | (Primary Dx); | | | | | [place] [address] | Presence of | | | | | [phone] | permanent cardiac | | | | [...] W | | | | | | [place], | | | | | | [place] [address] | | | | | | [phone] | | | | | | | | +--------+ + + + + documented as of this encounter Visit Diagnoses Not on filedocumented in this encounter"
--- OUTSIDE RECORDS SUMMARY | ~2019-11-16 | XMS | Encounter Summary ---
Demographics + + + | Address | [address] | | | [place] [address] | + + + | Home Phone [...] Providers + +------+ + | Care Health Club Manager Name | Role | Phone | + +------+ + PCP | Unavailable | + +------+ + Encounter Details +--------+ + + + + | Date | Type | Department | Care Team | Description | +--------+ + + + + | 04/23/ | Hospital | [facility] | | | | 2007 - | Encounter | MED CTR MED ONC | | | | | | [address] | | | | 04/24/ | | [place] [address] | | | | 2007 | | [phone] | | | +--------+ + + + [...] Dx); | | | | | [place] [address] | Presence of | | | | | [phone] | permanent cardiac | | | | [...] Interrogation | | | | | [place], | (Primary Dx); | | | | | [place] [address] | Presence of | | | | | [phone] | permanent cardiac | | | | [...] W | | | | | | [place], | | | | | | [place] [address] | | | | | | [phone] | | | | | | | | +--------+ + + + + documented as of this encounter Visit Diagnoses Not on filedocumented in this encounter"
--- OUTSIDE RECORDS SUMMARY | ~2019-11-16 | XMS | Encounter Summary ---
Demographics + + + | Address | [address] | | | [place] [address] | + + + | Home Phone [...] Providers + +------+ + | Care Corn Grinder Name | Role | Phone | [...] | | | | CENTER [address] | [place], [place] | insufficiency | | | | [place], [place] | [address] | | | | | [address] | | | | | | [phone] | | | +--------+ + + + [...] sent through Care Everywhere.PERIPHERAL KENYETTA A, BILATERAL (ITALIAN)documented in this encounter Medications at Time of [...] + + + +---------+ + + | [place]-3 Fatty | CAPS, one capsule by | [...] | | | | | | | #[id number], exp 07/2016 | | | | | [...] | | | | | [facility], | (Primary Dx); | | | | | [place] [address] | Presence of | | | | | [phone] | permanent cardiac | | | | [...] | 2018 | Monitor | | [address] | Interrogation | | | | | [place], | (Primary Dx); | | | | | [place] [address] | Presence of | | | | | [phone] | permanent cardiac | | | | [...] W | | | | | | [place], | | | | | | [place] [address] | | | | | | [phone] | | | | | | | | +--------+ + + + + documented as of this encounter Visit Diagnoses + + | Diagnosis | + + | Peripheral edema - Primary Edema | + + | Venous insufficiency Unspecified venous (peripheral) insufficiency | + + documented in this encounter
--- OUTSIDE RECORDS SUMMARY | ~2019-11-16 | XMS | Encounter Summary ---
Demographics + + + | Address | [address] | | | [place] [address] | + + + | Home Phone [...] Team Providers + +------+ + | Care Ski Patrol Director Name | Role | Phone | + +------+ + PCP | Unavailable | + +------+ + Encounter Details +--------+ + + + + | Date | Type | Department | Care Team | Description | +--------+ + + + + | 06/17/ | Hospital | [facility] | | | | 2007 | Encounter | MED CTR EMERGENCY | | | | | | [place] [address] | | | | | | [place] | | | | | | [address] | | | | | | [phone] | | | +--------+ + + + [...] Dx); | | | | | [place] [address] | Presence of | | | | | [phone] | permanent cardiac | | | | [...] Interrogation | | | | | [place], | (Primary Dx); | | | | | [place] [address] | Presence of | | | | | [phone] | permanent cardiac | | | | [...] W | | | | | | [place], | | | | | | [place] [address] | | | | | | [phone] | | | | | | | | +--------+ + + + + documented as of this encounter Visit Diagnoses Not on filedocumented in this encounter"
--- OUTSIDE RECORDS SUMMARY | ~2019-11-16 | XMS | Encounter Summary ---
Demographics + + + | Address | [address] | | | [place] [address] | + + + | Home Phone [...] Team Providers + +------+ + | Care Visiting Professor Name | Role | Phone | + +------+ + | Michael Amanda DO | PCP | | + +------+ + Encounter Details +--------+ + + + + | Date | Type | Department | Care Team | Description | +--------+ + + + + | 01/31/ | Hospital | [facility] | Adrian Gutierrez MD | | | 2012 | Encounter | [facility]ART MED CTR | [address] | | | | | EMERGENCY CENTER | [place], [place] | | | | | [address] | [address] | | | | | [place] | [phone] | | | | | [address] | | | | | | [phone] | | | +--------+ + + + [...] + + + +---------+ + + | [place]-3 Fatty | CAPS, one capsule by | [...] Dx); | | | | | [place] [address] | Presence of | | | | | [phone] | permanent cardiac | | | | [...] Dx); | | | | | [place] [address] | Presence of | | | | | [phone] | permanent cardiac | | | | [...] W | | | | | | [place], | | | | | | [place] [address] | | | | | | [phone] | | | | | | | [...] + + + | Exam Performed Location: [facility] TWO-VIEW | MISCELANIOUS | | CHEST CLINICAL [...] | an acute cardiopulmonary process. S: SQ ([id number]) Signed by: | | | JAYNE SPEAR MD | | + + + + + | Procedure Note | + + | Kevin, Rad Conversion - 09/13/2013 10:25 PM PDT Exam Performed Location: [facility] | | at [facility] HeartTWO-VIEW CHESTCLINICAL INFORMATION:Shortness of | | breath.COMPARISON:None.FINDINGS:There is a left subclavian dual lead cardiac pacer. The | | heart sizeand mediastinal contours are normal. The pulmonary vasculature isnormal. No | | focal airspace opacities, pleural effusions, orpneumothorax. Cervical fusion hardware | | is noted. No acute osseousfindings.IMPRESSION:No evidence of an acute cardiopulmonary | | process.S: SQ ([id number]) Signed by: JAYNE SPEAR MD | |COMPARISON: [...] | | | | | |S: SQ ([id number]) Signed by: JAYNE SPEAR MD | + + + +---------+ + + | Performing | Address | City/State/Zipcode | Phone Number | | Organization | | | | + +---------+ + + | MISCELLANEOUS LAB | | | [phone] | + +---------+ + + | MISCELANIOUS LAB | | | [phone] | + +---------+ + + Troponin I [...] [address] | [place] [address] | | | [facility] | [...] + | YESSY JONES | [address] | [place] [address] | | | HEART [facility] | | | | | LABORATORY | [...] + + | [facility] | [address] [place] | [place] [address] | | | HEART [facility]ICAL [facility]ENTER | [...] + + | [facility] | [address] | [place] [address] | | | [facility]ENTER | [...] + + | Glucose | 154 (H)Comment: Dutch | 65 - 99 mg/dL | [facility] [...] + | [facility] | [address] | [place] [address] | | | [facility] | | | | | LABORATORY | | | | + + + + + | YESSY JONES | | | | | HEART [facility] | | | | | LABORATORY | | | | + + + + + documented in this encounter Visit Diagnoses Not on filedocumented in this encounter"
--- OUTSIDE RECORDS SUMMARY | ~2019-11-16 | XMS | Encounter Summary ---
Demographics + + + | Address | [address] | | | [place] [address] | + + + | Home Phone [...] Team Providers + +------+ + | Care Staining Machine Operator Name | Role | Phone [...] | | | pain | [address] | [address] | | | | | Procedures | [place] | [place], | | | | | [place] Nuclear | [place], [place] | [place] | | | | | Stress Test | [address] | [address] | | | | | (Vasodilator | Phone: | Phone: | | | | | ) CHG | [phone] | [phone] | | | | | MYOCARDIAL | Fax: | Fax: | | | | | SPECT | [phone] | [phone] | | | | | MULTIPLE | [...] 2012 | | CARDIOLOGY [address] | [place] [address] | interactions, chest | | | | [place], | [place], [place] | pain) | | | | [place] [address] | [address] | | | | | [phone] | | | +--------+ + + + [...] 2018 | Monitor | | [address] | Interrogation | | | | | [place], | (Primary Dx); | | | | | [place] [address] | Presence of | | | | | [phone] | permanent cardiac | | | | [...] 2018 | Monitor | | [address] | Interrogation | | | | | [place], | (Primary Dx); | | | | | [place] [address] | Presence of | | | | | [phone] | permanent cardiac | | | | [...] | | | | | | [place] [address] | | | | | | [phone] | | | | | | | | +--------+ + + + + documented as of this encounter Results [place] Nuclear Stress Test (Vasodilator) (12/07/2013 7:01 AM PST) + + | Specimen | + + | | + + + + + | Narrative | Performed At | + + + | [facility] Diagnostic Imaging | [place] | | Department [address] [place] | [facility] | | [ rep ct [address]] [ rep ct [facility] | | [facility]] Signed | - IMAGING | | | | | Patient Name: MOE GAY | | | Physician: JACKLYN : 1960 Age: 53 Sex: M Unit | | | #: [id number] Exam Date: 12/06/13 Location: | | | [facility] Report #: [id number] Page: | | | %(RAD)RES..mtdd.print.filter("pg") of %(RAD) | | | RES..mtdd.print.filter("tpg") | | | | | | Accession Number: [id number] | | | PERSANTINE SESTAMIBI STRESS TEST, [...] Transcribed Date/Time: 12/07/2013 08:18 | | | Applications Developer: <<Signature on File>> | | | | | | Daljit Singletary MD [facility]12/07/13 1321 <Electronically signed | | | by Daljit Singletary MD, FACC, FACP, FASE, FASNC> Daljit | | | MD Gem[facility] 12/07/13700 Applications Developer: Jessica | | | Mdrqouxpipard35/16/14817 PARISA Garcia | | + + + + + + + + | Performing | Address | City/State/Zipcode | Phone Number | | Organization | | | | + + + + + | [facility] | [address] | [place] | [phone] | | [facility] | | [address] | | | - IMAGING | | | | + + + + + documented in this encounter Visit Diagnoses + + | Diagnosis | + + | Other chest pain - Primary | + + documented in this encounter
--- OUTSIDE RECORDS SUMMARY | ~2019-11-16 | XMS | Encounter Summary ---
Demographics + + + | Address | [address] | | | [place] [address] | + + + | Home Phone [...] Team Providers + +------+ + | Care Magazine Feeder Name | Role | Phone | + [...] | Refill | [facility] [place] | Shirley, | Medication Refill | | 2014 | | CARDIOLOGY [address] | PARISA Vernon [address] | | | | | [place], | [place], | | | | | [place] [address] | [place] [address] | | | | | [phone] | [phone] | | | | | | | [...] | Monitor | | MD [address] [place] | Interrogation | | | | | [place], | (Primary Dx); | | | | | [place] [address] | Presence of | | | | | [phone] | permanent cardiac | | | | [...] | Monitor | | MD [address] [place] | Interrogation | | | | | [place], | (Primary Dx); | | | | | [place] [address] | Presence of | | | | | [phone] | permanent cardiac | | | | [...] | | | | | | [place] [address] | | | | | | [phone] | | | | | | | | +--------+ + + + + documented as of this encounter Visit Diagnoses Not on filedocumented in this encounter"
--- OUTSIDE RECORDS SUMMARY | ~2019-11-16 | XMS | Encounter Summary ---
Demographics + + + | Address | [address] | | | [place] [address] | + + + | Home Phone [...] Team Providers + +------+ + | Care Center Human Resources Manager Name | Role | Phone | [...] | | CARDIOLOGY [address] | Janeen PROTECTIVE CLOTHING ISSUER [address] | | | | | [place], | [place], | | | | | [place] [address] | [place] [address] | | | | | [phone] | [phone] | | | | | | | [...] Interrogation | | | | | [place], | (Primary Dx); | | | | | [place] [address] | Presence of | | | | | [phone] | permanent cardiac | | | | [...] 2018 | Monitor | | [address] [place] | Interrogation | | | | | [place], | (Primary Dx); | | | | | [place] [address] | Presence of | | | | | [phone] | permanent cardiac | | | | [...] | | | | | | [place] [address] | | | | | | [phone] | | | | | | | | +--------+ + + + + documented as of this encounter Visit Diagnoses Not on filedocumented in this encounter"
--- OUTSIDE RECORDS SUMMARY | ~2019-11-16 | XMS | Encounter Summary ---
Demographics + + + | Address | [address] | | | [place] [address] | + + + | Home Phone [...] Team Providers + +------+ + | Care Dining Chair Seat Cushion Trimmer Name | Role | Phone | + +------+ + | Kirk French MD | PCP | | + +------+ + Encounter Details +--------+ + + + + | Date | Type | Department | Care Team | Description | +--------+ + + + + | 07/21/ | Hospital | [facility] | Daljit Singletary, | Palpitations; | | 2018 | Encounter | MED CTR NUCLEAR | MD [address] [place] | Presence of | | | | MEDICINE [address] | [address], | permanent cardiac | | | | [place], | [place] [address] | pacemaker; | | | | [address] | [phone] | Sinoatrial node | | | | [phone] | | dysfunction (HCC) | +--------+ + [...] + + + +---------+ + + | [place]-3 Fatty | CAPS, one capsule by | [...] Interrogation | | | | | [place], | (Primary Dx); | | | | | [place] [address] | Presence of | | | | | [phone] | permanent cardiac | | | | [...] | 2018 | Monitor | | [address] [place] [address] | Interrogation | | | | | [place], | (Primary Dx); | | | | | [place] [address] | Presence of | | | | | [phone] | permanent cardiac | | | | [...] W | | | | | | [place], | | | | | | [place] [address] | | | | | | [phone] | | | | | | | [...] | | + +---------+ + + | TAYLOR MUSE | | | | + +---------+ + + documented in this encounter Visit Diagnoses + + | Diagnosis | + + | Palpitations | + + | Presence of permanent cardiac pacemaker Cardiac pacemaker in situ | + + | Sinoatrial node dysfunction (HCC) Sinoatrial node dysfunction | + + documented in this encounter"
--- OUTSIDE RECORDS SUMMARY | ~2019-11-16 | XMS | Encounter Summary ---
Demographics + + + | Address | [address] | | | [place] [address] | + + + | Home Phone [...] [facility] [place] | | | and [...] Providers + +------+ + | Care Public Administration Teacher Name | Role | Phone | [...] | | | | aortic | Janeen, SENIOR PROCESS ENGINEER | [place], | | | | | aneurysm | [address] | [place] [address] | | | | | (HCC) | [place] | Phone: | | | | | Abdominal | [place], | [phone] | | | | | aortic | [place] | Fax: | | | | | aneurysm | [address] | [phone] | | | | | (AAA) | Phone: | | | | | | without | [phone] | | | | | | rupture | Fax: | | | | | | (HCC) | [phone] | | | | | | Procedures [...] | | unspecified | MD Martell | [address] [place] [address] | | | | | type ER | [address] | [place] | | | | | FUP | [place] | [place], | | | | | Procedures | [place], [place] | [place] [address] | | | | | FUP - SUW & | [address] | Phone: | | | | | MISHA PT, LAST | Phone: | [phone] | | | | | SEEN | [phone] | Fax: | | | | | 08-24-18 | Fax: | [phone] | | | | | | [phone] | | +--------+ + + + + + Encounter Details +--------+---------+ + + + | Date | Type | Department | Care Team | Description | +--------+---------+ + + + | 01/11/ | Office | [facility] | Silvia, | Coronary artery | | 2019 | Visit | CARDIOLOGY [address] | PARISA Vernon [address] | disease involving | | | | [place], | [place], | kashia coronary | | | | [place] [address] | [place] [address] | artery of kashia | | | | [phone] | [phone] | heart without angina | | | [...] encounter Patient Instructions Patient Instructions Christine Rodriguez, Mortgage Loan Reviewer - 01/11/2019 12:45 PM PST 1. You [...] Check-in time: 1. Check in at the [facility]. 2. Do not [...] procedure. 6. Make sure you have a otr truck driver to take you home. Your otr truck driver will also need to sign [...] hospital line at and ask for nursing industrial gas servicer supervisor t o let them know you are cancelling . Blood test: Non-fasting Date Due: same day as CTA Where to go for labs: [facility]- [address] [facility] CTA of Chest and Abdomen: Date: Check-In Time: Where to Check In: Follow up appointment in Cardiology: 4-6 weeks Provider: PARISA Lomas Date: Check-in time: documented in this encounter Progress Notes Janeen Vega ARNP - 01/11/2019 12:45 PM PSTFormatting of this note might be differen t from the original. PATIENT NAME: oMe Sanchez : 1960: AGE: 58 y.o. PRIMARY CARE: Kirk French MD OUTPATIENT FOLLOW UP VISIT Date of Service: 01/11/2019 HISTORY OF PRESENT ILLNESS: Moe Sanchez is a 58 y.o. 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 ONE TOUCH DELICA LANCETS [facility] Check glucose as needed for hypoglycemia 100 [...] was found Confirmed by ANGELA MARADIAGA MD ([id number]) on 01/03/2019 8:10:39 PM LAB RESULTS reviewed [...] reviewed reports from [facility]: Xr Chest Ap Portable Result Date: [...] ASSESSMENT: 1. Non-critical Coronary artery disease involving kashia coronary artery of kashia heart wi out angina pectoris: A. Normal [...] Symptoms with moderate exertion of t he [place] 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 Heart failure stage [...] ventricular arrhythmia performed by Dr. Gambino at [facility] on 01/30/2013. Patient had spontaneous PVC's [...] go back in 3 days t o [place] for an attempt of ablation under general [...] he has any further problems Christine Clemente Mortgage Loan Reviewer am acting as a scribe on behalf of, and in the pres ence of PARISA Lomas. - Reji Newman 01/11/2019 13:46 IJaneen ARNP, personally performed the services described in this documentati on, as scribed in my presence and it is both accurate and complete. -PARISA Lomas 01/11/2019 Portions of this chart may have been created with [employer] voice recognition software. Occasi onal wrong-word or [...] Dx); | | | | | [place] [address] | Presence of | | | | | [phone] | permanent cardiac | | | | [...] 2018 | Monitor | | [address] [place] | Interrogation | | | | | [place], | (Primary Dx); | | | | | [place] [address] | Presence of | | | | | [phone] | permanent cardiac | | | | [...] W | | | | | | [place], | | | | | | [place] [address] | | | | | | [phone] | | | | | | | [...] + + | Coronary artery disease involving kashia coronary artery of kashia heart without | | angina pectoris - [...]
--- OUTSIDE RECORDS SUMMARY | ~2019-11-16 | XMS | Encounter Summary ---
Demographics + + + | Address | [address] | | | [place] [address] | + + + | Home Phone [...] Providers + +------+ + | Care Property Worker Name | Role | Phone | + +------+ + PCP | Unavailable | + +------+ + Encounter Details +--------+ + + + + | Date | Type | Department | Care Team | Description | +--------+ + + + + | 10/26/ | Hospital | [facility] | | | | 1994 | Encounter | MED CTR EMERGENCY | | | | | | CENTER [address] | | | | | | [place] | | | | | | [address] | | | | | | [phone] | | | +--------+ + + + [...] Dx); | | | | | [place] [address] | Presence of | | | | | [phone] | permanent cardiac | | | | [...] Interrogation | | | | | [place], | (Primary Dx); | | | | | [place] [address] | Presence of | | | | | [phone] | permanent cardiac | | | | [...] W | | | | | | [place], | | | | | | [place] [address] | | | | | | [phone] | | | | | | | | +--------+ + + + + documented as of this encounter Visit Diagnoses Not on filedocumented in this encounter"
--- OUTSIDE RECORDS SUMMARY | ~2019-11-16 | XMS | Encounter Summary ---
Demographics + + + | Address | [address] | | | [place] [address] | + + + | Home Phone [...] Team Providers + +------+ + | Care Bucket Wash Operator Name | Role | Phone | [...] + | 02/16/ | Telephone | [facility] | [place], | Other (concerned | | 2012 | | CARDIOLOGY [address] | PARISA Vernon [address] | about palpitations) | | | | [place], | [place], | | | | | [place] [address] | [place] [address] | | | | | [phone] | [phone] | | | | | | | [...] 2018 | Monitor | | [address] [place] | Interrogation | | | | | [place], | (Primary Dx); | | | | | [place] [address] | Presence of | | | | | [phone] | permanent cardiac | | | | [...] Interrogation | | | | | [place], | (Primary Dx); | | | | | [place] [address] | Presence of | | | | | [phone] | permanent cardiac | | | | [...] | | | | | | [place] [address] | | | | | | [phone] | | | | | | | | +--------+ + + + + documented as of this encounter Visit Diagnoses Not on filedocumented in this encounter"
--- OUTSIDE RECORDS SUMMARY | ~2019-11-16 | XMS | Encounter Summary ---
Demographics + + + | Address | [address] | | | [place] [address] | + + + | Home Phone [...] Providers + +------+ + | Care Senior Programmer Name | Role | Phone | [...] | 01/04/ | Telephone | [facility] [place] | Emmanuel Daniel MD | Other | | 2019 | | GASTROENTEROLOGY | [address], [place] | | | | | [address] [place] | [address] [place], [place] | | | | | [address] [place], [place] | [address] | | | | | [address] | | | | | | [phone] | | | +--------+ + + + [...] Interrogation | | | | | [place], | (Primary Dx); | | | | | [place] [address] | Presence of | | | | | [phone] | permanent cardiac | | | | [...] 2018 | Monitor | | [address] [place] | Interrogation | | | | | [place], | (Primary Dx); | | | | | [place] [address] | Presence of | | | | | [phone] | permanent cardiac | | | | [...] | | | | | | [place] [address] | | | | | | [phone] | | | | | | | | +--------+ + + + + documented as of this encounter Visit Diagnoses Not on filedocumented in this encounter"
--- OUTSIDE RECORDS SUMMARY | ~2019-11-16 | XMS | Encounter Summary ---
Demographics + + + | Address | [address] | | | [place] [address] | + + + | Home Phone [...] Providers + +------+ + | Care Senior Marketing Engineer Name | Role | Phone | [...] | CARDIOLOGY [address] | [address] [place] | Interrogation | | | | [place], | [place], | (Primary Dx); | | | | [place] [address] | [place] [address] | Pacemaker; | | | | [phone] | [phone] | Sinoatrial node | | | | [...] 11/20/ | Implant | Cardiology | Daljit Singlteary, | Remote Device | | 2019 | Monitor | | [address] [facility] | Interrogation | | | | | [place], | (Primary Dx); | | | | | [place] [address] | Presence of | | | | | [phone] | permanent cardiac | | | | [...] | 2018 | Monitor | | [address] [place] [address] | Interrogation | | | | | [place], | (Primary Dx); | | | | | [place] [address] | Presence of | | | | | [phone] | permanent cardiac | | | | [...] W | | | | | | [place], | | | | | | [place] [address] | | | | | | [phone] | | | | | | | [...] Daljit | PACEART | | MD Gemini 06/14/2019 14:29Date of Remote Interrogation: | | | 05/06/19 Refer to Paceart documentation and remote PDF scanned into | | | [facility] for remote interrogation results. Data collected by [...]
--- OUTSIDE RECORDS SUMMARY | ~2019-11-16 | XMS | Encounter Summary ---
Demographics + + + | Address | [address] | | | [place] [address] | + + + | Home Phone [...] Author | [facility] [place] | | | and [...] Team Providers + +------+ + | Care High School Computer Science Teacher Name | Role | Phone [...] | [address] [place] [place] | [place] [address] | | | | | [address] | [phone] | | | | | [phone] | | | +--------+ + + + [...] Interrogation | | | | | [place], | (Primary Dx); | | | | | [place] [address] | Presence of | | | | | [phone] | permanent cardiac | | | | [...] Interrogation | | | | | [place], | (Primary Dx); | | | | | [place] [address] | Presence of | | | | | [phone] | permanent cardiac | | | | [...] W | | | | | | [place], | | | | | | [place] [address] | | | | | | [phone] | | | | | | | | +--------+ + + + + documented as of this encounter Visit Diagnoses Not on filedocumented in this encounter"
--- OUTSIDE RECORDS SUMMARY | ~2019-11-16 | XMS | Encounter Summary ---
Demographics + + + | Address | [address] | | | [place] [address] | + + + | Home Phone [...] Team Providers + +------+ + | Care Traveling Plant Operator Name | Role | Phone | + +------+ + PCP | Unavailable | + +------+ + Encounter Details +--------+ + + + + | Date | Type | Department | Care Team | Description | +--------+ + + + + | 06/17/ | Hospital | [facility] | | | | 2008 | Encounter | MED CTR EMERGENCY | | | | | | [place] [address] | | | | | | [place] | | | | | | [address] | | | | | | [phone] | | | +--------+ + + + [...] Dx); | | | | | [place] [address] | Presence of | | | | | [phone] | permanent cardiac | | | | [...] Interrogation | | | | | [place], | (Primary Dx); | | | | | [place] [address] | Presence of | | | | | [phone] | permanent cardiac | | | | [...] W | | | | | | [place], | | | | | | [place] [address] | | | | | | [phone] | | | | | | | | +--------+ + + + + documented as of this encounter Visit Diagnoses Not on filedocumented in this encounter"
--- OUTSIDE RECORDS SUMMARY | ~2019-11-16 | XMS | Encounter Summary ---
Demographics + + + | Address | [address] | | | [place] [address] | + + + | Home Phone [...] Team Providers + +------+ + | Care Optical Instrument Repairer Name | Role | Phone | [...] + | 12/23/ | Telephone | [facility] | Silvia, | Lab Order (due for | | 2017 | | CARDIOLOGY [address] | Janeen, PCI SECURITY CONSULTANT [address] | fasting labs) | | | | [place], | [place], | | | | | [place] [address] | [place] [address] | | | | | [phone] | [phone] | | | | | | | [...] Interrogation | | | | | [place], | (Primary Dx); | | | | | [place] [address] | Presence of | | | | | [phone] | permanent cardiac | | | | [...] 2018 | Monitor | | [address] [place] | Interrogation | | | | | [place], | (Primary Dx); | | | | | [place] [address] | Presence of | | | | | [phone] | permanent cardiac | | | | [...] | | | | | | [place] [address] | | | | | | [phone] | | | | | | | | +--------+ + + + + documented as of this encounter Visit Diagnoses Not on filedocumented in this encounter"
--- OUTSIDE RECORDS SUMMARY | ~2019-11-16 | XMS | Encounter Summary ---
Demographics + + + | Address | [address] | | | [place] [address] | + + + | Home Phone [...] Providers + +------+ + | Care Senior Landscape Architect Name | Role | Phone | [...] + | 12/23/ | Telephone | [facility] | Daljit Singletary, | Other (question | | 2015 | | CARDIOLOGY [address] | [address] | about diet | | | | [address], | [place], | medication) | | | | [place] [id number] | [place] [id number] | | | | | [phone] | [phone] | | | | | | | [...] 2018 | Monitor | | [address] | Interrogation | | | | | 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, | (Primary Dx); | | | | | [place] [address] | Presence of | | | | | [phone] | permanent cardiac | | | | [...] | | | | | | [place] [address] | | | | | | [phone] | | | | | | | | +--------+ + + + + documented as of this encounter Visit Diagnoses Not on filedocumented in this encounter"
--- OUTSIDE RECORDS SUMMARY | ~2019-11-16 | XMS | Encounter Summary ---
Demographics + + + | Address | [address] | | | [place] [address] | + + + | Home Phone [...] Team Providers + +------+ + | Care Server Service Assistant Name | Role | Phone [...] | 07/30/ | Telephone | [facility] [place] [facility] | Michael Amanda, | Results | | 2013 | | [place]ICINE [place] | DO [address] | | | | | [address] | [place] | | | | | [place] | [address] | | | | | [address] | | | | | | [phone] | | | +--------+ + + + [...] 2018 | Monitor | | MD [address] [facility] | Interrogation | | | | | [place], | (Primary Dx); | | | | | [place] [address] | Presence of | | | | | [phone] | permanent cardiac | | | | [...] Interrogation | | | | | [place], | (Primary Dx); | | | | | [place] [address] | Presence of | | | | | [phone] | permanent cardiac | | | | [...] 2019 | Visit | | [address] | | | | | | [place], | | | | | | [place] [address] | | | | | | [phone] | | | | | | | | +--------+ + + + + documented as of this encounter Visit Diagnoses Not on filedocumented in this encounter"
--- OUTSIDE RECORDS SUMMARY | ~2019-11-16 | XMS | Encounter Summary ---
Demographics + + + | Address | [address] | | | [place] [address] | + + + | Home Phone [...] 2016 | | CARDIOLOGY [address] | SALES REPRESENTATIVE ADDING MACHINES [address] | | | | | [place], | [place], [place] | | | | | [place] [address] | [address] | | | | | [phone] | | | +--------+--------+ + + + [...] Interrogation | | | | | [place], | (Primary Dx); | | | | | [place] [address] | Presence of | | | | | [phone] | permanent cardiac | | | | [...] Interrogation | | | | | [place], | (Primary Dx); | | | | | [place] [address] | Presence of | | | | | [phone] | permanent cardiac | | | | [...] | | | | | | [place] [address] | | | | | | [phone] | | | | | | | | +--------+ + + + + documented as of this encounter Visit Diagnoses Not on filedocumented in this encounter"
--- OUTSIDE RECORDS SUMMARY | ~2019-11-16 | XMS | Encounter Summary ---
Demographics + + + | Address | [address] | | | [place] [address] | + + + | Home Phone [...] Providers + +------+ + | Care Area Sales Manager Name | Role | Phone | + +------+ + | Kirk French MD | PCP | | + +------+ + Encounter Details +--------+ + + + + | Date | Type | Department | Care Team | Description | +--------+ + + + + | 01/05/ | Orders Only | [facility] | Emmanuel Daniel MD | | | 2019 | | [facility] | [address], [place] | | | | | PATHOLOGY [address] | [address] [place], [place] | | | | | BLVD [place], [place] | [address] | | | | | [address] | | | | | | [phone] | | | +--------+ + + + [...] 2018 | Monitor | | [address] | Interrogation | | | | | [place], | (Primary Dx); | | | | | [place] [address] | Presence of | | | | | [phone] | permanent cardiac | | | | [...] 2018 | Monitor | | [address] | Interrogation | | | | | [place], | (Primary Dx); | | | | | [place] [address] | Presence of | | | | | [phone] | permanent cardiac | | | | [...] W | | | | | | [place], | | | | | | [place] [address] | | | | | | [phone] | | | | | | | [...] | | | (atherosclerotic heart disease of poarch coronary artery without | | | angina [...] A. The | | | specimen, labeled "[place], duodenal biopsy" is received in formalin | | | and consists of seven 0.1-0.5 cm lin fragments. Entirely submitted in | | | (A1). B. The specimen, labeled "[place], right colon" is received | | | in formalin and consists of six 0.2-0.3 cm lin fragments. Entirely | | | submitted in (B1). C. The specimen, labeled "[place], left colon" | | | is received in formalin and consists of six 0.2-0.3 cm lin-pink | | | fragments. Entirely submitted in (C1). am:AMB:portillo PERFORMING | | | LABORATORY: The technical component was performed by [facility] | | | [facility], [address] [place] [address] (Electro Mechanical Designer: | | | Kailey Stafford MD; CLIA# [id number]). Professional interpretation was | | | performed by [facility], [facility] | | | [place] [address] (Electro Mechanical Designer: Ishaan | | | Anthony Dao; CLIA#: [id number]). Diagnostician: Ishaan Dao | | | Pathologist [...]
--- OUTSIDE RECORDS SUMMARY | ~2019-11-16 | XMS | Encounter Summary ---
Demographics + + + | Address | [address] [place] [address] | | | [place] [address] | + + + | Home Phone | | + + + | Preferred Language | Unknown | + + + | Marital Status | | + + + | Jainism Affiliation | Unknown | + + + [...] [place] | | | | | [address] | | + + + + + Care Team Providers + +------+ + | Care Clinical Mental Health Counselor Name | Role | Phone | [...] Yao | | | | | at [facility] | [facility] | | | | | [address] | [place] [address] | | | | | Loop Mailcode: | | | | | | [id number] Yao Booth | | | | | | [facility] | | | | | | [place], [place] | | | | | | [address] | | | | | | [phone] | | | +--------+ + + + [...] view image for the detailed interpretation from [facility] results. | CARDIOLOGY | + + + + + + + + | Performing | Address | City/State/Zipcode | Phone Number | | Organization | | | | + + + + + | [facility] | [address] | [place], [place] | | | CARDIOLOGY | [address] | [address] | | + + + + + documented in this encounter Visit Diagnoses Not on filedocumented in this encounter"
--- OUTSIDE RECORDS SUMMARY | ~2019-11-16 | XMS | Encounter Summary ---
Demographics + + + | Address | [address] | | | [place] [address] | + + + | Home Phone [...] Providers + +------+ + | Care Cloth Shearing Supervisor Name | Role | Phone [...] | 10/09/ | Telephone | [facility] [place] [facility] | Michael Amanda, | Other | | 2012 | | MEDICINE [place] | DO [address] | | | | | [address] | [place] | | | | | [place] | [address] | | | | | [address] | | | | | | [phone] | | | +--------+ + + + [...] 2018 | Monitor | | MD [facility] | Interrogation | | | | | [place], | (Primary Dx); | | | | | [place] [address] | Presence of | | | | | [phone] | permanent cardiac | | | | [...] 2018 | Monitor | | MD [facility] | Interrogation | | | | | [place], | (Primary Dx); | | | | | [place] [address] | Presence of | | | | | [phone] | permanent cardiac | | | | [...] W | | | | | | [place], | | | | | | [place] [address] | | | | | | [phone] | | | | | | | | +--------+ + + + + documented as of this encounter Visit Diagnoses Not on filedocumented in this encounter"
--- OUTSIDE RECORDS SUMMARY | ~2019-11-16 | XMS | Encounter Summary ---
Demographics + + + | Address | [address] | | | [place] [address] | + + + | Home Phone [...] Team Providers + +------+ + | Care Angle Roll Operator Name | Role | Phone | [...] 2019 | | GASTROENTEROLOGY | [address], [place] | | | | | [address] [place] | [address] [place], [place] | | | | | [address] [place], [place] | [address] | | | | | [address] | | | | | | [phone] | | | +--------+ + + + [...] Interrogation | | | | | [place], | (Primary Dx); | | | | | [place] [address] | Presence of | | | | | [phone] | permanent cardiac | | | | [...] 2018 | Monitor | | [address] | Interrogation | | | | | [place], | (Primary Dx); | | | | | [place] [address] | Presence of | | | | | [phone] | permanent cardiac | | | | [...] | | | | | | [place] [address] | | | | | | [phone] | | | | | | | | +--------+ + + + + documented as of this encounter Visit Diagnoses Not on filedocumented in this encounter"
--- OUTSIDE RECORDS SUMMARY | ~2019-11-16 | XMS | Encounter Summary ---
Demographics + + + | Address | [address] | | | [place] [address] | + + + | Home Phone [...] Team Providers + +------+ + | Care Printed Forms Proofreader Name | Role | Phone | + [...] + + | 10/23/ | Office | [facility] | Silvia, | CAD (coronary artery | | 2013 | Visit | CARDIOLOGY [address] | [place] [address] | disease) (Primary | | | | [facility], | [facility] [place], | Dx); Other chest | | | | [place] [address] | [place] [address] | pain; Chest pain; | | | | [phone] | [phone] | Coronary artery | | | | [...] Sanchez Date: October 23, 2014 : 1960 Technical Specialist Cytology: Kailey Pruitt RN Device De Icer Kit Assembler: [employer] Sense (mV) Impedance (?) Capture (V) Capture (ms) A Lead 2.80-4.00 407 1.500 0.09 RV Lead 22.40-31.36 519 2.000 0.09 LV Lead Battery Impedance (?): 658 Battery Voltage (V): 2.79 SC Interval (ms): 155 AR Interval (ms): 240 VA Conduction: Mode Switch Events: 1 % of time: <0.1 -HEAD PAPER TESTER: <0.1% AP-HEAD PAPER TESTER: <0.1% -VS: 13.8% AP-VS: 86.1% HEAD PAPER TESTER: Magnetic Rate: 85 LINDA: 65 LEAH: Current [...] Kailey Pruitt RN 10/23/2014 15:22 ames Janeen, STEELSCOPE OPERATOR - 10/23/2014 2:22 PM PST PATIENT NAME: [...] needed for Chest pain. 25 tablet 12 Frohna-3 Fatty Acids (SALMON OIL-1000 PO) CAPS, one capsule by mouth daily twice daily ONE TOUCH DELICA LANCETS [facility] Check glucose as needed for hypoglycemia 100 [...] attenuation cannot completely be ruled out. [facility] 12/25/13, shows non critical coronary artery [...] He is i n class I-II of [place] Heart Ass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 There are no [...] to go back in 3 days to [place] for an attempt of ablation under general [...] dizziness. He is in class I-II of [place] Heart Ass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 There are n [...] this chart may have been created with [employer] voice recognition software. Occasi onal wrong-word or [...] 2019 | Monitor | | [address] [facility] | Interrogation | | | | | [place], | (Primary Dx); | | | | | [place] [address] | Presence of | | | | | [phone] | permanent cardiac | | | | [...] Dx); | | | | | [place] [address] | Presence of | | | | | [phone] | permanent cardiac | | | | [...] | | | | | [facility] [place], | | | | | | [place] [address] | | | | | | [phone] | | | | | | | [...] 23, 2014 : | | | 1960 Technical Specialist Cytology: Kailey Pruitt RN Device De Icer Kit Assembler: | | | Medtronic Sense (mV) Impedance (?) Capture (V) Capture (ms) A | | | Lead 2.80-4.00 407 1.500 0.09 RV Lead 22.40-31.36 519 2.000 0.09 | | | LV Lead Battery Impedance (?): 658 Battery Voltage (V): 2.79 | | | SC Interval (ms): 155 AR Interval (ms): 240 VA Conduction: Mode | | | Switch Events: 1 % of time: <0.1 -HEAD PAPER TESTER: <0.1% AP-HEAD PAPER TESTER: <0.1% -VS: | | | 13.8% AP-VS: 86.1% HEAD PAPER TESTER: Magnetic Rate: 85 LINDA: 65 LEAH: Current [...] | | Date: October 23, 2014DOB: 1960 Technical Specialist Cytology: Jun Saul De Icer Kit Assembler: | | Medtronic Sense (mV) Impedance (?) Capture (V) Capture (ms) A Lead 2.80-4.00 407 1.500 | | 0.09 RV Lead 22.40-31.36 519 2.000 0.09 LV Lead Battery Impedance (?): 658 Battery | | Voltage (V): 2.79 SC Interval (ms): 155 AR Interval (ms): 240 VA Conduction: Mode | | Switch Events: 1 % of time: <0.1 -HEAD PAPER TESTER: <0.1% AP-HEAD PAPER TESTER: <0.1% -VS: 13.8% AP-VS: 86.1% HEAD PAPER TESTER: | | Magnetic Rate: 85 LINDA: 65 [...] of unspecified type | | of vessel, spirit lake or graft | + + | Other chest pain | + + | Chest pain Chest pain, unspecified | + + | Coronary artery disease Coronary atherosclerosis of unspecified type of vessel, | | spirit lake or graft | + + | Pacemaker [...]
--- OUTSIDE RECORDS SUMMARY | ~2019-11-16 | XMS | Encounter Summary ---
Demographics + + + | Address | [address] | | | [place] [address] | + + + | Home Phone [...] Team Providers + +------+ + | Care Camp Attendant Name | Role | Phone | + +------+ + PCP | Unavailable | + +------+ + Encounter Details +--------+ + + + + | Date | Type | Department | Care Team | Description | +--------+ + + + + | 06/13/ | [facility] | [facility] | Daljit Singletary, | | | 2008 | Encounter | MED CTR LABORATORY | [address] | | | | | [address] [place] | [place], | | | | | [place] | [place] [address] | | | | | [address] | [phone] | | | | | [phone] | | | +--------+ + + + [...] | | | | | [place], | (Primary Dx); | | | | | [place] [address] | Presence of | | | | | [phone] | permanent cardiac | | | | [...] | MD [facility] | Interrogation | | | | | [place], | (Primary Dx); | | | | | [place] [address] | Presence of | | | | | [phone] | permanent cardiac | | | | [...] W | | | | | | [place], | | | | | | [place] [address] | | | | | | [phone] | | | | | | | | +--------+ + + + + documented as of this encounter Visit Diagnoses Not on filedocumented in this encounter"
--- OUTSIDE RECORDS SUMMARY | ~2019-11-16 | XMS | Encounter Summary ---
Demographics + + + | Address | [address] | | | [place] [address] | + + + | Home Phone [...] Team Providers + +------+ + | Care Restaurant Greeter Name | Role | Phone | + [...] | MED CTR EXTERNAL | MD [address] | | | | | IMAGING | [place] | | | | | [phone] | [place] [address] | | +--------+ + + + + [...] Interrogation | | | | | [facility], | (Primary Dx); | | | | | [place] [address] | Presence of | | | | | [phone] | permanent cardiac | | | | [...] Interrogation | | | | | [facility], | (Primary Dx); | | | | | [place] [address] | Presence of | | | | | [phone] | permanent cardiac | | | | [...] W | | | | | | [place], | | | | | | [place] [address] | | | | | | [phone] | | | | | | | [...]
--- OUTSIDE RECORDS SUMMARY | ~2019-11-16 | XMS | Encounter Summary ---
Demographics + + + | Address | [address] | | | [place] [address] | + + + | Home Phone [...] Providers + +------+ + | Care City Surveyor Name | Role | Phone | [...] 2015 | | CARDIOLOGY [address] | DIRECTOR OF CAREER RESOURCES [address] | reprogramming/check | | | | [address] [place], | [place], [place] | DO NOT DELETE | | | | [place] [address] | [address] | (Primary Dx); | | | | [phone] | | Pacemaker - | | | [...] 2018 | Monitor | | [address] | Interrogation | | | | | [place], | (Primary Dx); | | | | | [place] [address] | Presence of | | | | | [phone] | permanent cardiac | | | | [...] | Monitor | | MD [address] | Interrogation | | | | | [place], | (Primary Dx); | | | | | [place] [address] | Presence of | | | | | [phone] | permanent cardiac | | | | [...] W | | | | | | [place], | | | | | | [place] [address] | | | | | | [phone] | | | | | | | [...] | | 2. Coronary artery disease involving paskenta coronary artery of | | | paskenta heart without angina pectoris I25.10 414.01 ECHO [...]
--- OUTSIDE RECORDS SUMMARY | ~2019-11-16 | XMS | Encounter Summary ---
Demographics + + + | Address | [address] | | | [place] [address] | + + + | Home Phone [...] Providers + +------+ + | Care Insurance Licensing Supervisor Name | Role | Phone | [...] | | | | CENTER [address] | [place] | Paresthesia and pain | | | | [place], [place] | [address] | of both upper | | | | [address] | | extremities | | | | [phone] | | | +--------+ + + + [...] cannot be sent through Care Everywhere.PARAESTHESIAS ( [place])NECK SPRAIN/STRAIN ([place])documented in this encounter Medications at Time of [...] + + + +---------+ + + | Ava-3 Fatty | CAPS, one capsule by | [...] | | 2019 | Monitor | | ID [facility] | Interrogation | | | | | [place], | (Primary Dx); | | | | | [place] [address] | Presence of | | | | | [phone] | permanent cardiac | | | | [...] 2018 | Monitor | | [address] | Interrogation | | | | | [place], | (Primary Dx); | | | | | [place] [address] | Presence of | | | | | [phone] | permanent cardiac | | | | [...] W | | | | | | [place], | | | | | | [place] [address] | | | | | | [phone] | | | | | | | [...] + | MISCELLANEOUS LAB | | | [phone] | + +---------+ + + | MISCELANIOUS LAB | | | [phone] | + +---------+ + + documented in this encounter Visit Diagnoses + + | Diagnosis | + + | Cervical pain (neck) - Primary Cervicalgia | + + | Paresthesia and pain of both upper extremities Disturbance of skin sensation | + + documented in this encounter
--- OUTSIDE RECORDS SUMMARY | ~2019-11-16 | XMS | Encounter Summary ---
Demographics + + + | Address | [address] | | | [place] [address] | + + + | Home Phone [...] Providers + +------+ + | Care Registered Art Therapist Name | Role | Phone | + +------+ + | Kirk French MD | PCP | | + +------+ + Encounter Details +--------+ + + + + | Date | Type | Department | Care Team | Description | +--------+ + + + + | 01/25/ | Hospital | [facility] | Daljit Singletary, | Stable angina | | 2019 | Encounter | MED CTR CV INTRA OP | MD [address] | pectoris (HCC) | | | | [address] | [address] [place], | | | | | [place] | [place] [address] | | | | | [address] | [phone] | | | | | [phone] | | | +--------+ + + + [...] as a collagen plugis used on the calabash triny site to close the site, you [...] by your healthcare provider Date Last Reviewed: 09/22/201619995129-1015 [employer] ( [employer] ). [address] [place] [address]. All righ ts reserved. This information is [...] + + + +---------+ + + | [place]-3 Fatty | CAPS, one capsule by | [...] Dx); | | | | | [place] [address] | Presence of | | | | | [phone] | permanent cardiac | | | | [...] Dx); | | | | | [place] [address] | Presence of | | | | | [phone] | permanent cardiac | | | | [...] W | | | | | | [place], | | | | | | [place] [address] | | | | | | [phone] | | | | | | | [...] (1960) MEDICAL RECORD NUMBER: | | | [id number] OF PROCEDURE: 01/25/2019 ROVING WEIGHT GAUGER: Daljit | | | MD [employer]ini PROCEDURES [...] Sanchez, (1960) | | OF PROCEDURE: 01/25/2019PRIMARY DATA SYSTEMS MANAGER: Daljit Singletary MD PROCEDURES | | PERFORMED:Coronary [...]
--- OUTSIDE RECORDS SUMMARY | ~2019-11-16 | XMS | Encounter Summary ---
Demographics + + + | Address | [address] | | | [place] [address] | + + + | Home Phone [...] Team Providers + +------+ + | Care Washer Engineer Name | Role | Phone | [...] | 06/22/ | Telephone | [facility] [place] [facility] | Vasiliy Michael [place], | Eye Problem | | 2012 | | MEDICINE [place] | DO [address] | | | | | [address] | [place] | | | | | [place] | [address] | | | | | [address] | | | | | | [phone] | | | +--------+ + + + [...] | | [facility] | Interrogation | | | | | [place], | (Primary Dx); | | | | | [place] [address] | Presence of | | | | | [phone] | permanent cardiac | | | | [...] 2018 | Monitor | | MD [facility] | Interrogation | | | | | [place], | (Primary Dx); | | | | | [place] [address] | Presence of | | | | | [phone] | permanent cardiac | | | | [...] W | | | | | | [facility] [place], | | | | | | [place] [address] | | | | | | [phone] | | | | | | | | +--------+ + + + + documented as of this encounter Visit Diagnoses Not on filedocumented in this encounter"
--- OUTSIDE RECORDS SUMMARY | ~2019-11-16 | XMS | Encounter Summary ---
Demographics + + + | Address | [address] | | | [place] [address] | + + + | Home Phone [...] Team Providers + +------+ + | Care Acquisitions Editor Name | Role | Phone | + +------+ + PCP | Unavailable | + +------+ + Encounter Details +--------+ + + + + | Date | Type | Department | Care Team | Description | +--------+ + + + + | 05/13/ | [facility] | [facility] | Dom Graham, | | | 2010 | Encounter | MED CTR EMERGENCY | [address] | | | | | CENTER [address] | [place] | | | | | [place] | [address] | | | | | [address] | | | | | | [phone] | | | +--------+ + + + [...] Interrogation | | | | | [facility] [place], | (Primary Dx); | | | | | [place] [address] | Presence of | | | | | [phone] | permanent cardiac | | | | [...] Interrogation | | | | | [place], | (Primary Dx); | | | | | [place] [address] | Presence of | | | | | [phone] | permanent cardiac | | | | [...] W | | | | | | [place], | | | | | | [place] [address] | | | | | | [phone] | | | | | | | [...] | | | | | the Javid Galax | | | | | | Access Analyzer. | | | | + + + + + + + + | Specimen | + + | | + + + + + + + | Performing | Address | City/State/Zipcode | Phone Number | | Organization | | | | + + + + + | [facility] | [address] | [place], [place] | [phone] | | [facility] | | [address] | | | - LABORATORY | | | | + + + + + | [facility] | [address] | [place], [place] | | | [facility] | | [address] | | | - LABORATORY | | [...] | | Basophils | | | [facility] | | [...] + | [facility] | [address] | [place] | [phone] | | [facility] | | [address] | | | - LABORATORY | | | | + + + + + | [facility] | [address] | [place] | | | [facility] | | [address] | | | - LABORATORY | | [...] | >60Comment: For | >60 mL/min/A | [facility] | | | GFR | -Americans, | | MICHELLE | | | | please multiply the [...] | 11.6 | 6.0 - 17.0 | [facility] | | | | | [...] [address] | [place] | [phone] | | [facility] | | [address] | | | - LABORATORY | | | | + + + + + | [facility] | [address] | [place] | | | [facility] | | [address] | | | - LABORATORY | | [...] | | | | Ranges: | | STJuan Diego MARTINEZ | | | | [phone] = NORMAL [...] | | | | | | the GeeYee | | | | | | Access Analyzer. | | | | + + + + + + + + | Specimen | + + | | + + + + + + + | Performing | Address | City/State/Zipcode | Phone Number | | Organization | | | | + + + + + | [facility] | [address] | [place] | [phone] | | [facility] | | [address] | | | - LABORATORY | | | | + + + + + | [facility] | [address] | [place] | | | [facility] | | [address] | | | - LABORATORY | | | | + + + + + XR Chest AP Portable (05/13/2011 3:01 PM PDT) + + | Specimen | + + | | + + + + + | Narrative | Performed At | + + + | [facility] | [facility] | | [address] [facility] | [facility] | | PORTABLE CHEST CLINICAL | [...] Transcribed Date/Time: | | | 05/13/2011 17:06 Pot Reliner: <Electronically Signed | | | by Jama Solis MD> 05/13/112038 | | + + + + + | Procedure Note | + + | Kevin, Rad Conversion - 12/29/2013 3:12 PM [facility] | | Diagnostic Imaging Department [address] [facility] | | PORTABLE CHEST CLINICAL HISTORY: TACHYCARDIA. [...] 16:57 | |Transcribed Date/Time: 05/13/2011 17:06 | |Pot Reliner: | |<Electronically Signed by Jama Solis MD> [...]
--- OUTSIDE RECORDS SUMMARY | ~2019-11-16 | XMS | Encounter Summary ---
Demographics + + + | Address | [address] | | | [place] [address] | + + + | Home Phone [...] Providers + +------+ + | Care Flight Teacher Name | Role | Phone | [...] 2012 | | CARDIOLOGY [address] | SHOE SINGER [address] [place] | | | | | [place], | [place] [facility] | | | | | [place] [address] | [address] | | | | | [phone] | | | +--------+ + + + [...] | Monitor | | [address] [facility] | Interrogation | | | | | [place], | (Primary Dx); | | | | | [place] [address] | Presence of | | | | | [phone] | permanent cardiac | | | | [...] | Monitor | | [address] [facility] | Interrogation | | | | | [place], | (Primary Dx); | | | | | [place] [address] | Presence of | | | | | [phone] | permanent cardiac | | | | [...] W | | | | | | [place], | | | | | | [place] [address] | | | | | | [phone] | | | | | | | | +--------+ + + + + documented as of this encounter Visit Diagnoses Not on filedocumented in this encounter"
--- OUTSIDE RECORDS SUMMARY | ~2019-11-16 | XMS | Encounter Summary ---
Demographics + + + | Address | [address] | | | [place] [address] | + + + | Home Phone [...] Providers + +------+ + | Care Oil Prospecting Observer Name | Role | Phone | + [...] + + | 10/01/ | Office | [facility] | Mary [place]shaw | Injury of left foot, | | 2013 | Visit | CARE [address] | Guy Larkin MD | initial encounter | | | | [place] | [address] | (Primary Dx) | | | | [address] | [place] | | | | | [phone] | [address] | | | | | | | [...] daily documented in this encounter Progress Notes Jna Kitty M - 10/01/2014 6:57 PM PSTCalled [...] half hours. 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 I provided patient with Dr. Bradley's card so he may contact us for results. Patient's best phone number: [phone] Renetta Lockwood RN ary [place]shaw MD - [...] Interrogation | | | | | [place], | (Primary Dx); | | | | | [place] [address] | Presence of | | | | | [phone] | permanent cardiac | | | | [...] 2018 | Monitor | | [address] | Interrogation | | | | | [place], | (Primary Dx); | | | | | [place] [address] | Presence of | | | | | [phone] | permanent cardiac | | | | [...] W | | | | | | [facility] [place], | | | | | | [place] [address] | | | | | | [phone] | | | | | | | [...] + | MISCELLANEOUS LAB | | | [phone] | + +---------+ + + | MISCELANIOUS LAB | | | [phone] | + +---------+ + + documented in this encounter Visit Diagnoses + + | Diagnosis | + + | Injury of left foot, initial encounter - Primary | + + documented in this encounter
--- OUTSIDE RECORDS SUMMARY | ~2019-11-16 | XMS | Encounter Summary ---
Demographics + + + | Address | [address] | | | [place] [address] | + + + | Home Phone [...] + +------+ + | Care Sprinkler Fitter Helper Name | Role | Phone | + +------+ + PCP | Unavailable | + +------+ + Encounter Details +--------+ + + + + | Date | Type | Department | Care Team | Description | +--------+ + + + + | 06/23/ | [facility] | [facility] | Arthur Page MD | | | 2007 - | Encounter | MED CTR MED ONC | [address] [facility] | | | | | [address] [place] | [place] | | | 06/25/ | | [place] [address] | [address] | | | 2007 | | [phone] | | | +--------+ + + + [...] Interrogation | | | | | [place], | (Primary Dx); | | | | | [place] [address] | Presence of | | | | | [phone] | permanent cardiac | | | | [...] 2018 | Monitor | | MD [facility] | Interrogation | | | | | [place], | (Primary Dx); | | | | | [place] [address] | Presence of | | | | | [phone] | permanent cardiac | | | | [...] W | | | | | | [place], | | | | | | [place] [address] | | | | | | [phone] | | | | | | | | +--------+ + + + + documented as of this encounter Visit Diagnoses Not on filedocumented in this encounter"
--- OUTSIDE RECORDS SUMMARY | ~2019-11-16 | XMS | Clinical Summary ---
Demographics + + + | Address | [address] | | | [place] [address] | + + + | Home Phone [...] Team Providers + +------+ + | Care Centura Technical Lead Senior Developer Name | Role | Phone [...] | | + + + +---------+------+------+-------+ | Ochelata-3 Fatty | CAPS, one capsule by | [...] | | | | | | | [place] coronary | | | | | | | | artery of [place] | | | | | | | [...] tablet by | | 0 | | 12/1 | Disco | | diphenoxylate-atropi | mouth 4 times daily | | | | 3/20 | ntinu | | ne (LOMOTIL) | as needed for | | | | 19 | ed | | 2.5-0.025 mg per | Diarrhea. | | | | | (Reor | | tablet | | | | | | good) | + + + +---------+------+------+-------+ | hyoscyamine | Place 1 tablet under | 60 | 1 | 09/0 | 12/0 | Disco | | (LEVSIN) 0.125 mg SL | the tongue every 4 | tablet | | 9/20 | 5/20 | ntinu | | tablet | hours [...] + | Overview: Lower back injury (From [facility]) 1980 1984 | + + + + [...] + + | Coronary artery disease involving [place] coronary artery of | 12/21/2013 | | [place] heart without angina pectoris | | + [...] | | hemostatic band, by Daljit Singletary [facility] on 07/21/2018 | | shows regadenoson [...] attenuation cannot | | completely be ruled out.[facility] 12/25/13, shows non critical coronary | [...] | + + + + + | [facility] care | 06/26/2013 | + + + [...] | | CT Angiogram chest w/constrast 05/26/14 [facility] | + + + + + [...] ventricular arrhythmia performed by Dr. Gambino at [facility] on 01/30/2013. Patient had spontaneous [...] back in 3 days to | | [place] for an attempt of ablation under general [...] IMPLANTED GENERATOR | | Medtronic DDD ADDR01 [id number] 06/14/09 RV LEAD Medtronic Active | | Bipolar CapSureFix 4076 [id number] 06/14/09 A LEAD Medtronic | | Active Bipolar CapSurFix 4076 [id number] 06/14/09 | + + + +---+ | [...] | Heart Cath, 02/29/2012, LVEF is 65%, [facility], Daljit Singletary, | | [facility] Myocardial Gated Stress Test, 05/25/2009, EF 53 | | % during rest and 52% during stress. [facility], | | [place]Persantine Sestamibi Stress Test, 06/14/2008, LVEF is | | 60%, [facility], Rashadotto SunshinenL 12/25/13, shows noncritical | | coronary artery [...] Plan: Nonobstructive CAD noted | | on [facility] from 2013, no EKG changes, and [...] | | | | | | unspecified ([facility]); | | | | | | Mixed [...] + + | Mother | | | [place] | | | | (Age | | [...] | 2019 | Monitor | | [address] [place] | Interrogation | | | | | [place], | (Primary Dx); | | | | | [place] [address] | Presence of | | | | | [phone] | permanent cardiac | | | | [...] 2018 | Monitor | | [facility] | Interrogation | | | | | [place], | (Primary Dx); | | | | | [place] [address] | Presence of | | | | | [phone] | permanent cardiac | | | | [...] | | | | | | [place], | | | | | | [place] [address] | | | | | | [phone] | | | | | | | [...] 6 | Stent | Left: | CAMERON CAMERON | | 09/27/ | [id number] | | - [id number]: | | Ureter | INCORPORATE | | 2020 | / | | Qty: 1 on 04/13/2019 by | | | D | | | /[id number] | | Matthew Uriarte MD at | | | | | | 57 | | [facility] | | | | | | | | [facility] | | | | | | | [...] +--------+ +---------+--------+ | MEDICARE | MEDICA | [id number] | 01/21/20 | [phone] | | Medica | | | RE | | 01-Pre | 5 | | re | | | PART A | | sent | | | | | | AND B | | | | | | + +--------+ +--------+ +---------+--------+ | MEDICARE | MEDICA | [id number] | 01/21/20 | [phone] | | Medica | | | RE | | 01-Pre | 5 | | re | | | PART A | | sent | | | | | | AND B | | | | | | + +--------+ +--------+ +---------+--------+ | AARP | AARP | [id number] | | [phone] | | Indemn | | | MDCR | | 016-Pr | 0 | | ity | | | SUPPL | | esent | | | | + +--------+ +--------+ +---------+--------+ | AARP | AARP | [id number] | 11/22/19 | [phone] | | Indemn [...] Person | Self | [birth year] | [address] | | Kirk | cristo/Per | | 1960 | [phone] | [place] | | | roxanne | | | 8 (Home) | [address] | + +--------+ +--------+ + + | Moe Sanchez | Person | Self | [birth year] | | [address] | | Kirk | cristo/Per | | 1959 | [phone] | [place] | | | roxanne | | | 8 (Home) | [phone] | + +--------+ +--------+ + + | Moe Sanchez | Third | Self | [birth year] | | [address] | | Kirk | Rayray | | 1959 | [phone] | [place] | | | Liabil | | | 3 ([place]) | [address] | | | ity | | | | | + +--------+ +--------+ + + Advance Directives + + + + + | Type | Date Recorded | Patient | Explanation | | | | Floor Broker | | + + + + + | Power of | | | | | Road Conductor | | | | + + + [...]
--- OUTSIDE RECORDS SUMMARY | ~2019-11-16 | XMS | Encounter Summary ---
Demographics + + + | Address | [address] | | | [place] [address] | + + + | Home Phone [...] CARDIOLOGY [address] | MD [address] [place] | reprogramming/check | | | | [place], | [place], | DO NOT DELETE | | | | [place] [id number] | [place] [id number] | (Primary Dx); | | | | [phone] | [phone] | Pacemaker - | | | | [...] Interrogation | | | | | [place], | (Primary Dx); | | | | | [place] [address] | Presence of | | | | | [phone] | permanent cardiac | | | | [...] Interrogation | | | | | [place], | (Primary Dx); | | | | | [place] [id number] | Presence of | | | | | [phone] | permanent cardiac | | | | [...] W | | | | | | [place], | | | | | | [place] [address] | | | | | | [phone] | | | | | | | [...] Daljit | PACEART | | MD Gemini 01/19/2018 11:35 PATIENT [...]
--- OUTSIDE RECORDS SUMMARY | ~2019-11-16 | XMS | Encounter Summary ---
Demographics + + + | Address | [address] | | | [place] [address] | + + + | Home Phone [...] Providers + +------+ + | Care Commercial Green Building Designer Name | Role | Phone | [...] | 02/15/ | Office | [facility] | Silvia, | Symptomatic PVCs | | 2012 | Visit | CARDIOLOGY [address] | [place] [address] | (Primary Dx); | | | | [place], | [place], | Bradycardia; HTN | | | | [place] [address] | [place] [address] | (hypertension) | | | | [phone] | [phone] | | | | | | | [...] at which time patient was going to [facility] for corporate communications specialist co nsult and PVC ablation. Since [...] tablet Take 1,000 mg by mouth Daily. Ohiopyle-3 Fatty Acids (SALMON OIL-1000 PO) CAPS, one [...] ventricular arrhythmia performed by Dr. Gambino at [facility] on 01/30/2013. Patient had spontaneous [...] to go back in 3 days to [facility] for an attempt of ablation under general [...] He is in a class II of [employer] Heart 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 There is no [...] been encouraged to keep his appointment with corporate communications specialist this coming y to attempt ablation therapy. 4. Follow up appointment in 4-6 weeks. I, PARISA Russell, saw this patient under the direct supervision of Daljit Singletary MD Portions of this report were transcribed using voice recognition software. Every effort wa s made to ensure accuracy; however, inadvertent computerized accounts receivable specialist errors may be pre sent. documented in this encounter Plan of Treatment +--------+ + + + + | Date | Type | Specialty | Care Team | Description | +--------+ + + + + | 11/20/ | Implant | Cardiology | Daljit Singletary, | Remote Device | | 2019 | Monitor | | [address] [place] | Interrogation | | | | | [place], | (Primary Dx); | | | | | [place] [address] | Presence of | | | | | [phone] | permanent cardiac | | | | [...] Dx); | | | | | [place] [address] | Presence of | | | | | [phone] | permanent cardiac | | | | [...] W | | | | | | [place], | | | | | | [place] [address] | | | | | | [phone] | | | | | | | [...]
--- OUTSIDE RECORDS SUMMARY | ~2019-11-16 | XMS | Encounter Summary ---
Demographics + + + | Address | [address] | | | [place] [address] | + + + | Home Phone [...] Providers + +------+ + | Care Marketing Manager Name | Role | Phone | [...] 2019 | | GASTROENTEROLOGY | [address] [place], [place] | Syndrome | | | | [address] [place] | [address] [place], [place] | | | | | [address] [place], [place] | [address] | | | | | [address] | | | | | | [phone] | | | +--------+ + + + [...] 2019 | Monitor | | MD [facility] | Interrogation | | | | | [place], | (Primary Dx); | | | | | [place] [address] | Presence of | | | | | [phone] | permanent cardiac | | | | [...] | Monitor | | [facility] | Interrogation | | | | | [place], | (Primary Dx); | | | | | [place] [address] | Presence of | | | | | [phone] | permanent cardiac | | | | [...] W | | | | | | [place], | | | | | | [place] [address] | | | | | | [phone] | | | | | | | | +--------+ + + + + documented as of this encounter Visit Diagnoses Not on filedocumented in this encounter"
--- OUTSIDE RECORDS SUMMARY | ~2019-11-16 | XMS | Encounter Summary ---
Demographics + + + | Address | [address] | | | [place] [address] | + + + | Home Phone [...] Team Providers + +------+ + | Care Apigee Developer Name | Role | Phone | [...] | 01/30/ | Telephone | [facility] | Daljit Singletary, | Other | | 2019 | | CARDIOLOGY [address] | MD [address] [place] | | | | | [place], | [place], | | | | | [place] [address] | [place] [address] | | | | | [phone] | [phone] | | | | | | | [...] | Monitor | | MD [address] [place] | Interrogation | | | | | [place], | (Primary Dx); | | | | | [place] [address] | Presence of | | | | | [phone] | permanent cardiac | | | | [...] | Monitor | | MD [address] [place] | Interrogation | | | | | [place], | (Primary Dx); | | | | | [place] [address] | Presence of | | | | | [phone] | permanent cardiac | | | | [...] | | | | | | [place], | | | | | | [place] [address] | | | | | | [phone] | | | | | | | [...] 05/02/2019, Expires: | | | | | [place] coronary | 01/30/2020 | | | | | artery of [place] | | | | | | heart [...] 05/02/2019, Expires: | | | | | [place] coronary | 01/31/2020 | | | | | artery of [place] | | | | | | heart without angina | | | | | | pectoris | | | | | | Hyperlipidemia, | | | | | | mixed | | + +------+--------+ + + documented as of this encounter Visit Diagnoses + + | Diagnosis | + + | Coronary artery disease involving [place] coronary artery of [place] heart without | | angina pectoris - Primary | + + | Hyperlipidemia, mixed Mixed hyperlipidemia | + + documented in this encounter"
--- OUTSIDE RECORDS SUMMARY | ~2019-11-16 | XMS | Encounter Summary ---
Demographics + + + | Address | [address] | | | [place] [address] | + + + | Home Phone [...] Team Providers + +------+ + | Care Hooker Off Name | Role | Phone | + [...] | CARDIOLOGY [address] | MD [address] [place] | | | | | [place], | [place], | | | | | [place] [address] | [place] [address] | | | | | [phone] | [phone] | | | | | | | [...] | Monitor | | MD [address] [place] | Interrogation | | | | | [place], | (Primary Dx); | | | | | [place] [address] | Presence of | | | | | [phone] | permanent cardiac | | | | [...] | Monitor | | MD [address] [place] | Interrogation | | | | | [place], | (Primary Dx); | | | | | [place] [address] | Presence of | | | | | [phone] | permanent cardiac | | | | [...] W | | | | | | [place], | | | | | | [place] [address] | | | | | | [phone] | | | | | | | | +--------+ + + + + documented as of this encounter Visit Diagnoses Not on filedocumented in this encounter"
--- OUTSIDE RECORDS SUMMARY | ~2019-11-16 | XMS | Encounter Summary ---
Demographics + + + | Address | [address] | | | [place] [address] | + + + | Home Phone [...] Providers + +------+ + | Care Financial Planning Analyst Name | Role | Phone | [...] W | DISCLOSURE) | | | | [place], | [place], | | | | | [place] [address] | [place] [address] | | | | | [phone] | [phone] | | | | | | | [...] | Monitor | | MD [address] [place] | Interrogation | | | | | [place], | (Primary Dx); | | | | | [place] [address] | Presence of | | | | | [phone] | permanent cardiac | | | | [...] | Monitor | | MD [address] [place] | Interrogation | | | | | [place], | (Primary Dx); | | | | | [place] [address] | Presence of | | | | | [phone] | permanent cardiac | | | | [...] | | | | | | [place] [address] | | | | | | [phone] | | | | | | | | +--------+ + + + + documented as of this encounter Visit Diagnoses Not on filedocumented in this encounter"
--- OUTSIDE RECORDS SUMMARY | ~2019-11-16 | XMS | Encounter Summary ---
Demographics + + + | Address | [address] | | | [place] [address] | + + + | Home Phone [...] Providers + +------+ + | Care Shuttle Veneering Supervisor Name | Role | Phone | + +------+ + PCP | Unavailable | + +------+ + Encounter Details +--------+ + + + + | Date | Type | Department | Care Team | Description | +--------+ + + + + | 10/09/ | [facility] | [facility] | Jonathan, | | | 2008 | Encounter | MED CTR EMERGENCY | Martell Cr MD [address] | | | | | CENTER [address] | [place] | | | | | [place] | [place] [address] | | | | | [address] | [phone] | | | | | [phone] | | | +--------+ + + + [...] Interrogation | | | | | [place], | (Primary Dx); | | | | | [place] [address] | Presence of | | | | | [phone] | permanent cardiac | | | | [...] Interrogation | | | | | [place], | (Primary Dx); | | | | | [place] [address] | Presence of | | | | | [phone] | permanent cardiac | | | | [...] | | | | | | [place], | | | | | | [place] [address] | | | | | | [phone] | | | | | | | | +--------+ + + + + documented as of this encounter Visit Diagnoses Not on filedocumented in this encounter"
--- OUTSIDE RECORDS SUMMARY | ~2019-11-16 | XMS | Encounter Summary ---
Demographics + + + | Address | [address] | | | [place] [address] | + + + | Home Phone [...] Team Providers + +------+ + | Care Multiplex Operator Name | Role | Phone | [...] | SLEEP DISORDER [address] | [address] | Dx) | | | | [address] [place] | [place] | | | | | [place] [address] | [address] | | | | | [phone] | | | +--------+---------+ + + + [...] pillows obtained from: [facility] pressure is: 13 cm CPAP download shows [...] to go to [facility] to have them download his memory card. I will readjust his pressure, if necessary. I will call him with the results. He is to work toward wearing his CPAP 100% of the time he is asleep. I will follow up again in 1 month, sooner prn. Fifteen minutes were spent [id number], wi th the majority of time spent [...] | Monitor | | MD [address] | Interrogation | | | | | [place], | (Primary Dx); | | | | | [place] [address] | Presence of | | | | | [phone] | permanent cardiac | | | | [...] | Monitor | | MD [address] | Interrogation | | | | | [place], | (Primary Dx); | | | | | [place] [address] | Presence of | | | | | [phone] | permanent cardiac | | | | | | pacemaker; | | | | | | Sinoatrial node | | | | | | dysfunction (HCC) | | | | | | with symptomatic | | | | | | bradycardia | +--------+ + + + + | 01/01/ | Office | Cardiology | [place], | | | 2019 | Visit | | PARISA [place] [address] | | | | | | [place], | | | | | | [place] [address] | | | | | | [phone] | | | | | | | | +--------+ + + + + documented as of this encounter Visit Diagnoses + + | Diagnosis | + + | DIDIER on CPAP - Primary Obstructive sleep apnea (adult) (pediatric) | + + documented in this encounter
--- OUTSIDE RECORDS SUMMARY | ~2019-11-16 | XMS | Encounter Summary ---
Demographics + + + | Address | [address] | | | [place] [address] | + + + | Home Phone [...] Team Providers + +------+ + | Care Decal Maker Name | Role | Phone | [...] | disease involving | | | | [place], | [place], | [place] coronary | | | | [place] [address] | [place] [address] | artery of aniak | | | | [phone] | [phone] | heart without angina | | | [...] Interrogation | | | | | [place], | (Primary Dx); | | | | | [place] [address] | Presence of | | | | | [phone] | permanent cardiac | | | | [...] Interrogation | | | | | [place], | (Primary Dx); | | | | | [place] [address] | Presence of | | | | | [phone] | permanent cardiac | | | | [...] W | | | | | | [place], | | | | | | [place] [address] | | | | | | [phone] | | | | | | | [...] MD | | | | | | ([id number]) on 06/23/2016 | | | | | [...] artery disease involving aniak coronary artery of aniak heart without | | angina pectoris - Primary | + + | Essential hypertension with goal blood pressure less than 130/80 | + + documented in this encounter"
--- OUTSIDE RECORDS SUMMARY | ~2019-11-16 | XMS | Encounter Summary ---
Demographics + + + | Address | [address] | | | [place] [address] | + + + | Home Phone [...] Providers + +------+ + | Care Senior Game Advisor Name | Role | Phone | [...] + | 09/01/ | Telephone | [facility] | Silvia, | Appointment | | 2016 | | CARDIOLOGY [address] | [place] [address] | (Reschedule) | | | | [place], | [place], | | | | | [place] [address] | [place] [address] | | | | | [phone] | [phone] | | | | | | | [...] 2018 | Monitor | | [address] [place] | Interrogation | | | | | [place], | (Primary Dx); | | | | | [place] [address] | Presence of | | | | | [phone] | permanent cardiac | | | | [...] | Monitor | | MD [address] [place] | Interrogation | | | | | [place], | (Primary Dx); | | | | | [place] [address] | Presence of | | | | | [phone] | permanent cardiac | | | | [...] | | | | | | [place] [address] | | | | | | [phone] | | | | | | | | +--------+ + + + + documented as of this encounter Visit Diagnoses Not on filedocumented in this encounter"
--- OUTSIDE RECORDS SUMMARY | ~2019-11-16 | XMS | Encounter Summary ---
Demographics + + + | Address | [address] | | | [place] [address] | + + + | Home Phone [...] Providers + +------+ + | Care Pediatric Cns Name | Role | Phone | + +------+ + | Kirk French MD | PCP | | + +------+ + Encounter Details +--------+ + + + + | Date | Type | Department | Care Team | Description | +--------+ + + + + | 06/15/ | Hospital | [facility] GENER[facility] IP | Conversion | Pain | | 2018 | Encounter | CONVERSION DEP [address] | Transaction, | | | | | [address] | Provider Unknown | | | | | [place], [place] | [phone] | | | | | [address] | | | | | | [phone] | | | +--------+ + + + [...] | Monitor | | MD [address] | Interrogation | | | | | [place], | (Primary Dx); | | | | | [place] [address] | Presence of | | | | | [phone] | permanent cardiac | | | | [...] | Monitor | | MD [address] | Interrogation | | | | | [place], | (Primary Dx); | | | | | [place] [address] | Presence of | | | | | [phone] | permanent cardiac | | | | [...] W | | | | | | [place], | | | | | | [place] [address] | | | | | | [phone] | | | | | | | | +--------+ + + + + documented as of this encounter Procedures + +--------+ + + + | Procedure Name | Priori | Date/Time | Associated Diagnosis | Comments | | | ty | | | | + +--------+ + + + | CT MYELOGRAPHY | Routin | 06/04/2016 | | Results for this | | CERVICAL SPINE | e | 2:29 AM | | procedure are in the | | | | PDT | | results section. | + +--------+ + + + documented in this encounter Results CT Myelography Cervical Spine (06/04/2016 2:29 AM PDT) + + | Specimen | [...]
--- OUTSIDE RECORDS SUMMARY | ~2019-11-16 | XMS | Encounter Summary ---
Demographics + + + | Address | [address] | | | [place] [address] | + + + | Home Phone [...] Team Providers + +------+ + | Care Loss Prevention Representative Name | Role | Phone | [...] [address] | | | | | | [place], [place] | (Fax) | | | | | [address] | | | | | | [phone] | | | +--------+ + + + [...] 2019 | Monitor | | [address] [place] | Interrogation | | | | | [place], | (Primary Dx); | | | | | [place] [address] | Presence of | | | | | [phone] | permanent cardiac | | | | [...] Dx); | | | | | [place] [address] | Presence of | | | | | [phone] | permanent cardiac | | | | [...] W | | | | | | [place], | | | | | | [place] [address] | | | | | | [phone] | | | | | | | | +--------+ + + + + documented as of this encounter Visit Diagnoses Not on filedocumented in this encounter"
--- OUTSIDE RECORDS SUMMARY | ~2019-11-16 | XMS | Encounter Summary ---
Demographics + + + | Address | [address] | | | [place] [address] | + + + | Home Phone [...] Team Providers + +------+ + | Care Examination Scorer Name | Role | Phone | [...] + | 07/13/ | Telephone | [facility] | Kirk French | Referral Question | | 2019 | | [facility] | MD Bre[address] | | | | | PRIMARY CARE [address] | [address] | | | | | [address] | [place] [address] | | | | | [place], [place] | [phone] | | | | | [address] | | | | | | [phone] | | | +--------+ + + + [...] | Interrogation | | | | | [facility] | (Primary Dx); | | | | | [place] [address] | Presence of | | | | | [phone] | permanent cardiac | | | | [...] Interrogation | | | | | [place], | (Primary Dx); | | | | | [place] [address] | Presence of | | | | | [phone] | permanent cardiac | | | | [...] W | | | | | | [place], | | | | | | [place] [address] | | | | | | [phone] | | | | | | | | +--------+ + + + + documented as of this encounter Visit Diagnoses Not on filedocumented in this encounter"
--- OUTSIDE RECORDS SUMMARY | ~2019-11-16 | XMS | Encounter Summary ---
Demographics + + + | Address | [address] | | | [place] [address] | + + + | Home Phone [...] Team Providers + +------+ + | Care Facility Manager Name | Role | Phone | [...] 2012 | | CARDIOLOGY [address] | DIGITAL PRESS OPERATOR [address] | to be referred | | | | [place], | [place], [place] | soon) | | | | [place] [address] | [address] | | | | | [phone] | | | +--------+ + + + [...] Interrogation | | | | | [place], | (Primary Dx); | | | | | [place] [address] | Presence of | | | | | [phone] | permanent cardiac | | | | [...] Interrogation | | | | | [place], | (Primary Dx); | | | | | [place] [address] | Presence of | | | | | [phone] | permanent cardiac | | | | [...] | | | | | | [place] [address] | | | | | | [phone] | | | | | | | | +--------+ + + + + documented as of this encounter Visit Diagnoses Not on filedocumented in this encounter"
--- OUTSIDE RECORDS SUMMARY | ~2019-11-16 | XMS | Encounter Summary ---
Demographics + + + | Address | [address] | | | [place] [address] | + + + | Home Phone [...] Providers + +------+ + | Care Database Marketing Specialist Name | Role | Phone [...] | | | | [place] | [address] | | | | | [address] | | | | | | [phone] | | | +--------+ + + + [...] 2018 | Monitor | | MD [address] [facility] | Interrogation | | | | | [place], | (Primary Dx); | | | | | [place] [address] | Presence of | | | | | [phone] | permanent cardiac | | | | [...] 2018 | Monitor | | MD [address] [facility] | Interrogation | | | | | [place], | (Primary Dx); | | | | | [place] [address] | Presence of | | | | | [phone] | permanent cardiac | | | | | | pacemaker; | | | | | | Sinoatrial node | | | | | | dysfunction (HCC) | | | | | | with symptomatic | | | | | | bradycardia | +--------+ + + + + | 01/01/ | Office | Cardiology | Silvia, | | | 2020 | Visit | | [place] [address] | | | | | | [place], | | | | | | [place] [address] | | | | | | [phone] | | | | | | | | +--------+ + + + + documented as of this encounter Visit Diagnoses Not on filedocumented in this encounter"
--- OUTSIDE RECORDS SUMMARY | ~2019-11-16 | XMS | Encounter Summary ---
Demographics + + + | Address | [address] | | | [place] [address] | + + + | Home Phone [...] Team Providers + +------+ + | Care Behavior Support Specialist Name | Role | Phone [...] Refill | | 2013 | | [facility] | DO [address] | | | | | [address] | [place] | | | | | [place] | [address] | | | | | [address] | | | | | | [phone] | | | +--------+--------+ + + + [...] | Monitor | | MD [address] | Interrogation | | | | | [place], | (Primary Dx); | | | | | [place] [address] | Presence of | | | | | [phone] | permanent cardiac | | | | [...] | Monitor | | MD [address] | Interrogation | | | | | [place], | (Primary Dx); | | | | | [place] [address] | Presence of | | | | | [phone] | permanent cardiac | | | | [...] | | | | | | [place] [address] | | | | | | [phone] | | | | | | | | +--------+ + + + + documented as of this encounter Visit Diagnoses Not on filedocumented in this encounter"
--- OUTSIDE RECORDS SUMMARY | ~2019-11-16 | XMS | Encounter Summary ---
Demographics + + + | Address | [address] | | | [place] [address] | + + + | Home Phone [...] Providers + +------+ + | Care Strategic Business Development Name | Role | Phone | [...] 2019 | | GASTROENTEROLOGY | [address], [place] | Recommendations | | | | [address] [place] | [address] [place], [place] | | | | | [address] [place], [place] | [address] | | | | | [address] | | | | | | [phone] | | | +--------+ + + + [...] Dx); | | | | | [place] [address] | Presence of | | | | | [phone] | permanent cardiac | | | | [...] | 2019 | Monitor | | [address] | Interrogation | | | | | [place], | (Primary Dx); | | | | | [place] [address] | Presence of | | | | | [phone] | permanent cardiac | | | | [...] W | | | | | | [place], | | | | | | [place] [address] | | | | | | [phone] | | | | | | | | +--------+ + + + + documented as of this encounter Visit Diagnoses Not on filedocumented in this encounter"
--- OUTSIDE RECORDS SUMMARY | ~2019-11-16 | XMS | Encounter Summary ---
Demographics + + + | Address | [address] | | | [place] [address] | + + + | Home Phone [...] Team Providers + +------+ + | Care Postmaster Relief Name | Role | Phone | + +------+ + PCP | Unavailable | + +------+ + Encounter Details +--------+ + + + + | Date | Type | Department | Care Team | Description | +--------+ + + + + | 04/28/ | [facility] | [facility] | Jonathan, | | | 2008 | Encounter | MED CTR EMERGENCY | Martell Cr MD [address] | | | | | CENTER [address] | [place] | | | | | [place] | [place] [address] | | | | | [address] | [phone] | | | | | [phone] | | | +--------+ + + + [...] Interrogation | | | | | [place], | (Primary Dx); | | | | | [place] [address] | Presence of | | | | | [phone] | permanent cardiac | | | | [...] MD Sim [facility] | Interrogation | | | | | [place], | (Primary Dx); | | | | | [place] [address] | Presence of | | | | | [phone] | permanent cardiac | | | | [...] W | | | | | | [place], | | | | | | [place] [address] | | | | | | [phone] | | | | | | | | +--------+ + + + + documented as of this encounter Visit Diagnoses Not on filedocumented in this encounter"
--- OUTSIDE RECORDS SUMMARY | ~2019-11-16 | XMS | Encounter Summary ---
Demographics + + + | Address | [address] | | | [place] [address] | + + + | Home Phone [...] Providers + +------+ + | Care Manager Land Name | Role | Phone | + +------+ + | Kirk French MD | PCP | | + +------+ + Encounter Details +--------+ + + + + | Date | Type | Department | Care Team | Description | +--------+ + + + + | 10/25/ | Hospital | [facility] | Kirk French | Chronic pain | | 2017 | Encounter | MED CTR ULTRASOUND | MD Brea [address] | disorder; Stomach | | | | [address] [place] | [address] | ache; Obesity, | | | | [place], [place] | [place] [address] | unspecified | | | | [address] | [phone] | classification, | | | | [phone] | | unspecified obesity | | | [...] + + + +---------+ + + | Savannah-3 Fatty | CAPS, one capsule by | | 0 | 04/18/20 | | | Acids (SALMON | mouth daily twice | | | 12 | | | OIL-1000 PO) | daily | | | | | + + + +---------+ + + | ONE TOUCH DELICA | Check glucose as | 100 | 3 | 09/26/20 | | | LANCETS | needed for [...] Monitor | | MD [address] [place] | Interrogation | | | | | [place], | (Primary Dx); | | | | | [place] [address] | Presence of | | | | | [phone] | permanent cardiac | | | | [...] | 2018 | Monitor | | [address] [place] | Interrogation | | | | | [place], | (Primary Dx); | | | | | [place] [address] | Presence of | | | | | [phone] | permanent cardiac | | | | [...] | | | | | | [place] [address] | | | | | | [phone] | | | | | | | [...]
--- OUTSIDE RECORDS SUMMARY | ~2019-11-16 | XMS | Encounter Summary ---
Demographics + + + | Address | [address] | | | [place] [address] | + + + | Home Phone [...] Providers + +------+ + | Care Field Support Specialist Name | Role | Phone [...] + | 07/01/ | Telephone | [facility] | Daljit Singletary, | Other (EKG) | | 2017 | | CARDIOLOGY [address] | MD [address] [place] | | | | | [place], | [place], | | | | | [place] [address] | [place] [address] | | | | | [phone] | [phone] | | | | | | | [...] Dx); | | | | | [place] [address] | Presence of | | | | | [phone] | permanent cardiac | | | | [...] 2018 | Monitor | | [address] [place] | Interrogation | | | | | [place], | (Primary Dx); | | | | | [place] [address] | Presence of | | | | | [phone] | permanent cardiac | | | | [...] | | | | | | [place] [address] | | | | | | [phone] | | | | | | | | +--------+ + + + + documented as of this encounter Visit Diagnoses Not on filedocumented in this encounter"
--- OUTSIDE RECORDS SUMMARY | ~2019-11-16 | XMS | Encounter Summary ---
Demographics + + + | Address | [address] | | | [place] [address] | + + + | Home Phone [...] Providers + +------+ + | Care Cloth Colors Examiner Name | Role | Phone | [...] | Telephone | [facility] [place] | [place], | LABS | | 2019 | | CARDIOLOGY [address] | Janeen EXCEPTIONAL CHILDREN TEACHER ASSISTANT [address] | | | | | [place], | [place], | | | | | [place] [address] | [place] [address] | | | | | [phone] | | | | | | | [...] | Monitor | | MD [address] [place] | Interrogation | | | | | [place], | (Primary Dx); | | | | | [place] [address] | Presence of | | | | | [phone] | permanent cardiac | | | | [...] | Monitor | | MD [address] [place] | Interrogation | | | | | [place], | (Primary Dx); | | | | | [place] [address] | Presence of | | | | | [phone] | permanent cardiac | | | | [...] W | | | | | | [place], | | | | | | [place] [address] | | | | | | [phone] | | | | | | | [...]
--- OUTSIDE RECORDS SUMMARY | ~2019-11-16 | XMS | Encounter Summary ---
Demographics + + + | Address | [address] [place] [address] | | | [place] [address] | + + + | Home Phone | | + + + | Preferred Language | Unknown | + + + | Marital Status | | + + + | Nondenominational Affiliation | Unknown | + + + [...] [place] | | | | | [address] | | + + + + + Care Team Providers + +------+ + | Care Traffic Analysis Technician Name | Role | Phone | [...] as of this encounter Progress Notes Interface, Shoemaker Custom In - 07/19/2006 3:05 AM PDTCLINIC DATE: 06/13/2002 [facility] REFERRING PHYSICIAN: Eugene Vera D.O. [address] [place] [address] Mr. Sanchez is a new patient. He [...] proceed. Martell Allen M.D. ELIZABETH / KATTY [id number] / [id number] / [id number] / [id number] cc: Eugene Vera D.O. [address] [place] [id number] signed by Interface, Shoemaker Custom In at 07/19/2006 3:0 5 AM PDTdocumented in this encounter Plan of Treatment Not on filedocumented as of this encounter Visit Diagnoses Not on filedocumented in this encounter
--- OUTSIDE RECORDS SUMMARY | ~2019-11-16 | XMS | Encounter Summary ---
Demographics + + + | Address | [address] | | | [place] [address] | + + + | Home Phone [...] Team Providers + +------+ + | Care Dormitory Maid Name | Role | Phone | + [...] + + | 08/19/ | Telephone | [facility] | Silvia, | Other (patient | | 2016 | | CARDIOLOGY [address] | [place] [address] | having issues with | | | | [place], | [place], | high blood pressure) | | | | [place] [address] | [place] [address] | | | | | [phone] | [phone] | | | | | | | [...] Interrogation | | | | | [place], | (Primary Dx); | | | | | [place] [address] | Presence of | | | | | [phone] | permanent cardiac | | | | [...] Monitor | | MD [address] [place] | Interrogation | | | | | [place], | (Primary Dx); | | | | | [place] [address] | Presence of | | | | | [phone] | permanent cardiac | | | | [...] | | | | | | [place] [address] | | | | | | [phone] | | | | | | | | +--------+ + + + + documented as of this encounter Visit Diagnoses Not on filedocumented in this encounter"
--- OUTSIDE RECORDS SUMMARY | ~2019-11-16 | XMS | Encounter Summary ---
Demographics + + + | Address | [address] | | | [place] [address] | + + + | Home Phone [...] Providers + +------+ + | Care Law Clerk Name | Role | Phone | + +------+ + | Kirk French MD | PCP | | + +------+ + Encounter Details +--------+ + + + + | Date | Type | Department | Care Team | Description | +--------+ + + + + | 12/24/ | Anesthesia | [facility] | Jarett Barakat | | | 2018 | Event | MED CTR MP INTRA OP | P, MD [address] | | | | | [address] | [place], [place] | | | | | [place], [place] | [address] | | | | | [address] | [phone] | | | | | [phone] | | | | | | | Arthur [place], | | | | | | [address] | | | | | | [place], [place] | | | | | | [address] | | | | | | | [...] 12/24/17 1435 by | | eral | aveo-thi-ctihqw catheter system; | Desmond Teresa RN | [...] 2018 | Monitor | | [address] | Interrogation | | | | | [place], | (Primary Dx); | | | | | [place] [address] | Presence of | | | | | [phone] | permanent cardiac | | | | [...] | Monitor | | MD [address] | Interrogation | | | | | [place], | (Primary Dx); | | | | | [place] [address] | Presence of | | | | | [phone] | permanent cardiac | | | | [...] W | | | | | | [place], | | | | | | [place] [address] | | | | | | [phone] | | | | | | | [...]
--- OUTSIDE RECORDS SUMMARY | ~2019-11-16 | XMS | Encounter Summary ---
Demographics + + + | Address | [address] | | | [place] [address] | + + + | Home Phone [...] Team Providers + +------+ + | Care Stereoplotter Operator Name | Role | Phone | [...] Provider Unknown | | | | | [place], [place] | [phone] | | | | | [address] | | | | | | [phone] | | | +--------+ + + + [...] + + + +---------+ + + | Barranquitas-3 Fatty | CAPS, one capsule by | [...] | | | | | | | #[id number], exp 07/2016 | | | | | [...] | Interrogation | | | | | [facility] | (Primary Dx); | | | | | [place] [address] | Presence of | | | | | [phone] | permanent cardiac | | | | [...] | 2018 | Monitor | | [address] [place] | Interrogation | | | | | [place], | (Primary Dx); | | | | | [place] [address] | Presence of | | | | | [phone] | permanent cardiac | | | | [...] W | | | | | | [place], | | | | | | [place] [address] | | | | | | [phone] | | | | | | | [...]
--- OUTSIDE RECORDS SUMMARY | ~2019-11-16 | XMS | Encounter Summary ---
Demographics + + + | Address | [address] | | | [place] [address] | + + + | Home Phone [...] Team Providers + +------+ + | Care Flyer Repairer Name | Role | Phone | + +------+ + | Michael Amanda DO | PCP | | + +------+ + Encounter Details +--------+ + + + + | Date | Type | Department | Care Team | Description | +--------+ + + + + | 02/22/ | Abstract | [facility] [place] | [place], | | | 2013 | | CARDIOLOGY [address] | [place] [address] | | | | | [place], | [place], | | | | | [place] [address] | [place] [address] | | | | | [phone] | | | | | | | [...] | Monitor | | MD [address] [place] | Interrogation | | | | | [facility], | (Primary Dx); | | | | | [place] [address] | Presence of | | | | | [phone] | permanent cardiac | | | | [...] | | | | | [place], | (Primary Dx); | | | | | [place] [address] | Presence of | | | | | [phone] | permanent cardiac | | | | [...] W | | | | | | [place], | | | | | | [place] [address] | | | | | | [phone] | | | | | | | [...] ST. | [address] | [place], [place] | | | [facility] | | [address] | | | - LABORATORY | | [...] | + +---------+ + + External Lab: Ejime INR (01/25/2014 11:43 AM PST) + +-------+ [...] | | | LAB | | | [place], | | | | | | External [...] | [address] | [place] | | | [facility] | | [address] | | | - LABORATORY | | [...]
--- OUTSIDE RECORDS SUMMARY | ~2019-11-16 | XMS | Encounter Summary ---
Demographics + + + | Address | [address] | | | [place] [address] | + + + | Home Phone [...] Team Providers + +------+ + | Care Ux Developer Name | Role | Phone | + +------+ + PCP | Unavailable | + +------+ + Encounter Details +--------+ + + + + | Date | Type | Department | Care Team | Description | +--------+ + + + + | 08/02/ | Hospital | [facility] | | | | 2001 | Encounter | MED CTR EMERGENCY | | | | | | [place] [address] | | | | | | [place] | | | | | | [address] | | | | | | [phone] | | | +--------+ + + + [...] Dx); | | | | | [place] [address] | Presence of | | | | | [phone] | permanent cardiac | | | | [...] | 2018 | Monitor | | [address] [facility] | Interrogation | | | | | [place], | (Primary Dx); | | | | | [place] [address] | Presence of | | | | | [phone] | permanent cardiac | | | | [...] | | | | | | [place] [address] | | | | | | [phone] | | | | | | | | +--------+ + + + + documented as of this encounter Visit Diagnoses Not on filedocumented in this encounter"
--- OUTSIDE RECORDS SUMMARY | ~2019-11-16 | XMS | Encounter Summary ---
Demographics + + + | Address | [address] | | | [place] [address] | + + + | Home Phone [...] Providers + +------+ + | Care Supervisor Sewing Department Name | Role | Phone | + +------+ + PCP | Unavailable | + +------+ + Encounter Details +--------+ + + + + | Date | Type | Department | Care Team | Description | +--------+ + + + + | 12/16/ | [facility] | [facility] | Naresh Mckeon | | | 2010 | Encounter | MED CTR SLEEP | MD Chaya [address] | | | | | CENTER [address] | [place] | | | | | [place] | [place] [address] | | | | | [address] | [phone] | | | | | [phone] | | | +--------+ + + + [...] Interrogation | | | | | [facility], | (Primary Dx); | | | | | [place] [address] | [facility] | | | | | [phone] | permanent cardiac | | | | [...] 2018 | Monitor | | MD [facility] | Interrogation | | | | | [facility] [place], | (Primary Dx); | | | | | [place] [address] | [facility] | | | | | [phone] | permanent cardiac | | | | [...] W | | | | | | [place], | | | | | | [place] [address] | | | | | | [phone] | | | | | | | | +--------+ + + + + documented as of this encounter Visit Diagnoses Not on filedocumented in this encounter"
--- OUTSIDE RECORDS SUMMARY | ~2019-11-16 | XMS | Encounter Summary ---
Demographics + + + | Address | [address] | | | [place] [address] | + + + | Home Phone [...] Team Providers + +------+ + | Care Stonecutter Apprentice Hand Name | Role | Phone | [...] | CARDIOLOGY [address] | reprogramming/check | | | | [place], | [place], | DO NOT DELETE | | | | [place] [address] | [place] [address] | (Primary Dx); | | | | [phone] | [phone] | Sinoatrial node | | | | [...] | Monitor | | MD [address] | Interrogation | | | | | [place], | (Primary Dx); | | | | | [place] [address] | Presence of | | | | | [phone] | permanent cardiac | | | | [...] | Monitor | | MD [address] | Interrogation | | | | | [place], | (Primary Dx); | | | | | [place] [address] | Presence of | | | | | [phone] | permanent cardiac | | | | [...] W | | | | | | [place], | | | | | | [place] [address] | | | | | | [phone] | | | | | | | [...] | Daljit SALVADOR | | MD Gemini 06/23/2016 16:09 PATIENT [...]
--- OUTSIDE RECORDS SUMMARY | ~2019-11-16 | XMS | Encounter Summary ---
Demographics + + + | Address | [address] | | | [place] [address] | + + + | Home Phone [...] Team Providers + +------+ + | Care Dopster Name | Role | Phone | + [...] | ER FUP | [address] | [address] | | | | | Procedures | [place], | [place], | | | | | FUP | [place] [address] | [place] [address] | | | | | | Phone: | Phone: | | | | | | [phone] | [phone] | | | | | | Fax: | Fax: | | | | | | [phone] | [phone] | +--------+--------+ + + + + Encounter Details +--------+---------+ + + + | Date | Type | Department | Care Team | Description | +--------+---------+ + + + | 02/11/ | Office | [facility] [place] | Silvia, | Coronary artery | | 2016 | Visit | CARDIOLOGY [address] | Janeen MERCHANT SEAMAN [address] | disease involving | | | | [address] [place], | [place], | [place] coronary | | | | [place] [address] | [place] [address] | artery of [place] | | | | [phone] | [phone] | heart without angina | | | [...] of non-critical coronary artery d isease involving [place] coronary artery of [place] heart without angina pectoris, essential h ypertension, [...] him. He sleeps on 1 pillow at [facility] without any shortness of breath. Overall, he has been doing well otherwise than the [facility] iety. MEDICAL, SURGICAL, AND PERSONAL HISTORY [...] Preventative health care Coronary artery disease involving [place] coronary artery of [place] heart without angina pectoris Cannabis abuse, daily [...] by mouth every evening 90 tablet 3 [facility] Natural Products (OSTEO BI-FLEX/5-LOXIN ADVANCED PO) Take [...] 3RD DOSE, CALL 911 100 tablet 3 [place]-3 Fatty Acids (SALMON OIL-1000 PO) CAPS, one [...] was found Confirmed by ANGELA MARADIAGA MD ([id number]) on 01/25/2017 6:45:26 AM LAB RESULTS reviewed during visit today primarily from [facility]: LIPID Lab Results Component Value Date [...] PLTEX 162 11/05/2016 I reviewed records from [facility] for emergency department visit o n 01/2017 which is summarized in the HPI. Above data and testing is reviewed this visit; testing below is historical data unless othe rwise specified. ASSESSMENT: 1. Essential hypertension with goal blood pressure less than 130/80: A. Today it has been well controlled 110 mmHg. He is in class I of t he [place] 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 On physical examination there are no signs of fluid overload. 2. Non-critical Coronary artery disease involving [place] coronary a rtery of [place] heart without angina pectoris: A. Normal exercise [...] arrhythmia performed by Dr. Gambino at [facility] on 01/30/2013. Patient had spontaneous [...] to go back in 3 days to [place] for an attempt of ablation under general [...] normal stable device function. Estimated remaining banner longevity is 3.5 years.. 5. Lightheadedness and [...] chart may have been created with [employer] voice recognition software. Occasi onal wrong-word or [...] Interrogation | | | | | [place], | (Primary Dx); | | | | | [place] [address] | Presence of | | | | | [phone] | permanent cardiac | | | | [...] Interrogation | | | | | [place], | (Primary Dx); | | | | | [place] [address] | Presence of | | | | | [phone] | permanent cardiac | | | | [...] W | | | | | | [place], | | | | | | [place] [address] | | | | | | [phone] | | | | | | | | +--------+ + + + + documented as of this encounter Visit Diagnoses + + | Diagnosis | + + | Coronary artery disease involving [place] coronary artery of [place] heart without | | angina pectoris - Primary | + + | Essential hypertension with goal blood pressure less than 130/80 | + + | Hyperlipidemia, mixed Mixed hyperlipidemia | + + documented in this encounter
--- OUTSIDE RECORDS SUMMARY | ~2019-11-16 | XMS | Encounter Summary ---
Demographics + + + | Address | [address] | | | [place] [address] | + + + | Home Phone [...] Team Providers + +------+ + | Care Guest House Manager Name | Role | Phone | [...] 2019 | | GASTROENTEROLOGY | [address], [place] | | | | | [address] [place] | [address] [place], [place] | | | | | [address] [place], [place] | [address] | | | | | [address] | | | | | | [phone] | | | +--------+ + + + [...] Dx); | | | | | [place] [address] | Presence of | | | | | [phone] | permanent cardiac | | | | [...] Dx); | | | | | [place] [address] | Presence of | | | | | [phone] | permanent cardiac | | | | [...] W | | | | | | [place], | | | | | | [place] [address] | | | | | | [phone] | | | | | | | | +--------+ + + + + documented as of this encounter Visit Diagnoses Not on filedocumented in this encounter"
--- OUTSIDE RECORDS SUMMARY | ~2019-11-16 | XMS | Encounter Summary ---
Demographics + + + | Address | [address] | | | [place] [address] | + + + | Home Phone [...] Team Providers + +------+ + | Care Psychiatric Aide Instructor Name | Role | Phone | + +------+ + | Michael Amanda DO | PCP | | + +------+ + Encounter Details +--------+ + + + + | Date | Type | Department | Care Team | Description | +--------+ + + + + | 09/22/ | Hospital | [facility] | Bahman Gant MD | | | 2012 | Encounter | MED CTR XRAY [address] | [address] [place] | | | | | [place] | [address] [place], | | | | | [place] [address] | [place] [address] | | | | | [phone] | | | | | | | [...] + + + +---------+ + + | [place]-3 Fatty | CAPS, one capsule by | [...] Interrogation | | | | | [place], | (Primary Dx); | | | | | [place] [address] | Presence of | | | | | [phone] | permanent cardiac | | | | [...] Dx); | | | | | [place] [address] | Presence of | | | | | [phone] | permanent cardiac | | | | [...] W | | | | | | [place], | | | | | | [place] [address] | | | | | | [phone] | | | | | | | | +--------+ + + + + documented as of this encounter Visit Diagnoses Not on filedocumented in this encounter"
--- OUTSIDE RECORDS SUMMARY | ~2019-11-16 | XMS | Encounter Summary ---
Demographics + + + | Address | [address] | | | [place] [address] | + + + | Home Phone [...] + +------+ + | Care Talent Acquisition Relationship Manager Name | Role | Phone | + +------+ + | Kirk French MD | PCP | | + +------+ + Encounter Details +--------+---------+ + + + | Date | Type | Department | Care Team | Description | +--------+---------+ + + + | 09/26/ | Office | [facility] | Kirk French | Weight loss (Primary | | 2018 | Visit | [facility] | MD [address] | Dx); Bipolar | | | | [facility]IMARY [facility] [address] | affective disorder, | | | | [address] | [place] [address] | remission status | | | | [place], [place] | [phone] | unspecified (HCC); | | | | [address] | | Mixed anxiety | | | | [phone] | | depressive disorder; | | | [...] [employer] Peptic ulcer disease Premature ventricular contraction [facility] 06/26/2013 LAST PSA:12/16/2010 RESULT:0.14 [...] CV LHC; Surgeon: Daljit Singletary MD; Location: [facility] CV LAB CARDIAC CATHERIZATION N/A 01/25/2019 Procedure: CV Cor Angio; Surgeon: Daljit Singletary MD; Location: [facility] CV LAB COLONOSCOPY N/A 12/24/2017 Procedure: COLONOSCOPY; Surgeon: Emmanuel Daniel MD; Location: [facility] MEDICAL PROCEDURE UNIT COLONOSCOPY N/A 01/05/2019 Procedure: COLONOSCOPY; Surgeon: Emmanuel Daniel MD; Location: [facility] MED[facility] PROC[facility]URE [facility] EGD 12/24/2017 HARDWARE [...] Procedure: EGD; Surgeon: Emmanuel Daniel MD; Location: [facility] MEDICAL PROCEDURE UN[facility] UPPER GASTROINTESTINAL ENDOSCOPY N/A 01/05/2019 Procedure: EGD; Surgeon: Emmanuel Daniel MD; Location: [facility] MEDICAL PROC[facility]URE [facility] URETEROSCOPY Left 04/13/2019 Procedure: Cystoscopy, Left ureteroscopy with laser lithotripsy, Left ureteral stent place ment; Surgeon: Matthew Uriarte MD; Location: [facility] MAIN OR VASECTOMY Social History Socioeconomic [...] ONE TABLET UNDER THE TONGUE EVERY 5 [place] NUTES NEEDED FOR CHEST PAIN 250 tablet 0 [place]-3 Fatty Acids (SALMON OIL-1000 PO) CAPS, one capsule by mouth daily twice daily ondansetron (ZOFRAN ODT) 4 mg disintegrating tablet Take 4 mg by mouth every 8 hours as needed for Nausea. ONE TOUCH DELICA LANCETS [facility] Check glucose as needed for [...] PLT 169 06/02/2019 No results found for: [id number] No results found for: FOLATE No results [...] Co multiple ER visits [facility] Already followed by [facility] [...] dollars a month. We will defer to [facility], perhaps to have some sort of [...] Dx); | | | | | [place] [address] | Presence of | | | | | [phone] | permanent cardiac | | | | [...] Dx); | | | | | [place] [address] | Presence of | | | | | [phone] | permanent cardiac | | | | [...] | | | | | | [place] [address] | | | | | | [phone] | | | | | | | [...]
--- OUTSIDE RECORDS SUMMARY | ~2019-11-16 | XMS | Encounter Summary ---
Demographics + + + | Address | [address] | | | [place] [address] | + + + | Home Phone [...] Team Providers + +------+ + | Care Firebrick Layer Helper Name | Role | Phone | [...] | | | | | | [place], [place] | (Fax) | | | | | [address] | | | | | | [phone] | | | +--------+ + + + [...] 2019 | Monitor | | [address] | Interrogation | | | | | [place], | (Primary Dx); | | | | | [place] [address] | Presence of | | | | | [phone] | permanent cardiac | | | | [...] Interrogation | | | | | [place], | (Primary Dx); | | | | | [place] [address] | Presence of | | | | | [phone] | permanent cardiac | | | | [...] W | | | | | | [place], | | | | | | [place] [address] | | | | | | [phone] | | | | | | | | +--------+ + + + + documented as of this encounter Visit Diagnoses Not on filedocumented in this encounter"
--- OUTSIDE RECORDS SUMMARY | ~2019-11-16 | XMS | Encounter Summary ---
Demographics + + + | Address | [address] | | | [place] [address] | + + + | Home Phone [...] Providers + +------+ + | Care Manager Motor Name | Role | Phone | + [...] | | CARDIOLOGY [address] | Janeen SOLUTION ADVISOR [address] | | | | | [place], | [place], | | | | | [place] [address] | [place] [address] | | | | | [phone] | [phone] | | | | | | | [...] 2018 | Monitor | | MD [address] [place] | Interrogation | | | | | [place], | (Primary Dx); | | | | | [place] [address] | Presence of | | | | | [phone] | permanent cardiac | | | | [...] Dx); | | | | | [place] [address] | Presence of | | | | | [phone] | permanent cardiac | | | | [...] W | | | | | | [place], | | | | | | [place] [address] | | | | | | [phone] | | | | | | | | +--------+ + + + + documented as of this encounter Visit Diagnoses Not on filedocumented in this encounter"
--- OUTSIDE RECORDS SUMMARY | ~2019-11-16 | XMS | Encounter Summary ---
Demographics + + + | Address | [address] | | | [place] [address] | + + + | Home Phone [...] Team Providers + +------+ + | Care Hair Preparer Name | Role | Phone | + +------+ + | Michael Amanda DO | PCP | | + +------+ + Encounter Details +--------+ + + + + | Date | Type | Department | Care Team | Description | +--------+ + + + + | 02/27/ | Hospital | [facility] | Shelly Carter DO | Chest pain; | | 2013 - | Encounter | [facility] | [address] | Pacemaker; | | | | CLINICAL DECISION | [place] [address] | Mild dehydration | | 02/28/ | | [address] [facility] | [phone] | | | 2013 | | [place], [place] | | | | | | [address] | | | | | | [phone] | | | +--------+ + + + [...] 2252 Date of Service: 02/28/141044 Status: Addendum Building Contractor: Dev Montano MD (Physician) Related Notes: Original Note by Dev Montano MD (Physician) filed at 02/28/14 1107 Patient ID: Pina Gay [id number] y.o. 1960 Admit date: 02/27/2014 Discharge [...] - 99 mg/dL Final Testing performed at [address] [address] BUN Date Value Range Status 02/28/2014 15 8 - 25 mg/dL Final Testing performed at [address] [address] CREATININE Date Value Range Status 02/28/2014 0.74 0.70 - 1.30 mg/dL Final Testing performed at [address] [address] BUN/CREAT Date Value Range Status 02/28/2014 20 Final Testing performed at [address] [address] TOTAL PROTEIN Date Value Range Status 02/28/2014 6.1* 6.3 - 8.2 g/dL Final Testing performed at [address] [address] GLOBULIN Date Value Range Status 02/28/2014 2.1 1.3 - 4.9 g/dL Final Testing performed at [address] [address] TBIL Date Value Range Status 02/28/2014 1.4 0.1 - 1.5 mg/dL Final Testing performed at [address] [address] ALT Date Value Range Status 02/28/2014 27 10 - 65 U/L Final Testing performed at [address] [address] AST Date Value Range Status 02/28/2014 31 10 - 45 U/L Final Testing performed at [address] [address] SODIUM Date Value Range Status 02/28/2014 138 135 - 143 mmol/L Final Testing performed at [facility], [address] [place] [address] POTASSIUM Date Value Range Status 02/28/2014 3.4* 3.5 - 4.9 mmol/L Final Testing performed at [facility], [address] [place] [address] CHLORIDE Date Value Range Status 02/28/2014 108 99 - 109 mmol/L Final Testing performed at [address] [address] CO2 Date Value Range Status 02/28/2014 21* 23 - 32 mmol/L Final Testing performed at [facility], [address] [place] [address] ANION GAP AGAP Date Value Range Status 02/28/2014 12 5 - 20 mmol/L Final Testing performed at [facility], [address] [place] [address] Xr Chest Pa And Lateral 02/27/2014 PINA [...] 3-D reconstructi ons were performed using the Wrapp 3-D software and sent to PACS. Oral Contrast: None I V contrast: 100 mL IsoVue 370 COMPARISON: None. 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 Singletary in [place] in December 2013 at [facility] which showed minimal occlusive disease. One artery was 25% and another was 15%, per patient. I requested official cardiac catheterization report from [place] and still waiting for it to come. 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 You may get these medications from any pharmacy. amLODIPine 5 MG tablet pantoprazole 40 MG tablet Activity: activity as tolerated Diet: cardiac diet Wound Care: not applicable There are no Patient Instructions on file for this visit. Per Pt None Chaka Ortiz MD [address] [facility] [id number] In 1 week Ariel Pulido MD [address] [facility] [phone] In 1 week Daljit Singletary MD [address] [facility] [address] [facility] [address] In 1 week Signed: DEV MONTANO 02/28/2014 10:45 AM Addendum:ADDENDUM I just received a cardiac catheterization report from [facility], [place], which was done on December 25, 2013. [...] + + + +---------+ + + | Wiseman-3 Fatty | CAPS, one capsule by | [...] 02/28/141211 Date of Service: 02/28/141210 Status: Signed Building Contractor: Bijal Sosa RN (Registered Nurse) Discharge instructions [...] 02/28/1411 Date of Service: 02/28/1411 Status: Signed Building Contractor: Mary Wetzel RPH (Pharmacist) Clinical Pharmacy Note: [...] ommittee. Mary Wetzel PharmD 02/28/2014 12:11 AM Electronically signed by [facility] Transaction, Provider at 07/17/2019 6:37 PM Karen pfeiffer in this encounter Plan of Treatment +--------+ + + + + | Date | Type | Specialty | Care Team | Description | +--------+ + + + + | 11/20/ | Implant | Cardiology | Daljit Singletary, | Remote Device | | 2018 | Monitor | | MD Chiquis Oro | Interrogation | | | | | [facility] [place], | (Primary Dx); | | | | | [place] [address] | Presence of | | | | | [phone] | permanent cardiac | | | | [...] Interrogation | | | | | [facility] [place], | (Primary Dx); | | | | | [place] [address] | Presence of | | | | | [phone] | permanent cardiac | | | | | | pacemaker; | | | | | | Sinoatrial node | | | | | | dysfunction ([facility]) | | | | | | with symptomatic | | | | | | bradycardia | +--------+ + + + + | 01/01/ | Office | Cardiology | Silvia, | | | 2019 | Visit | | PARISA Vernon [address] | | | | | | [place], | | | | | | [place] [address] | | | | | | [phone] | | | | | | | [...] EXTERNAL | | | | performed at [facility];[address] | | LAB | | | | [address];[place], [place] | | | | | | [address] | | | | + + + [...] | | | | | | ACUTE RI Testing | | | | | | performed at [facility];[address] | | | | | | [facility];[place], [place] | | | | | | [address] | | | | + + + [...] | | | | | [place] [address] | | | | + + + + + + | RED CELL | 4.68Comment: Testing | 4.20 - 5.70 | EXTERNAL | | | COUNT | performed at [facility], [address] | M/uL | LAB | | | | [address], | | | | | | [place] [address] | | | | + + + + + + | Hgb | 15.3Comment: Testing | 13.2 - 17.0 | EXTERNAL | | | | performed at [facility], [address] | g/dL | LAB | | | | [address], | | | | | | [place] [address] | | | | + + + + + + | Hematocrit, | 44.2Comment: Testing | 39.0 - 50.0 % | EXTERNAL | | | POC | performed at [facility], [address] | | LAB | | | | [address], | | | | | | [place] [address] | | | | + + + + + + | MCV | 94.5Comment: Testing | 80.0 - 100.0 fl | EXTERNAL | | | | performed at [facility], [address] | | LAB | | | | [address], | | | | | | [place] [address] | | | | + + + + + + | MCH | 32.6Comment: Testing | 27.0 - 34.0 pg | EXTERNAL | | | | performed at [facility], [address] | | LAB | | | | [address], | | | | | | [place] [address] | | | | + + + + + + | MCHC | 34.5Comment: Testing | 32.0 - 35.5 | EXTERNAL | | | | performed at [facility], [address] | g/dL | LAB | | | | [address], | | | | | | [place] [address] | | | | + + + + + + | RDW-CV | 45.5Comment: Testing | 37 - 53 fl | EXTERNAL | | | | performed at [facility], [address] | | LAB | | | | [address], | | | | | | [place] [address] | | | | + + + + + + | Platelet | 156Comment: Testing | 150 - 400 K/uL | EXTERNAL | | | Count | performed at [facility], [address] | | LAB | | | Plasma | [address], | | | | | | [place] [address] | | | | + + + + + + | MPV | 8.8Comment: Testing | fl | EXTERNAL | | | | performed at [facility], [address] | | LAB | | | | [address], | | | | | | [place] [address] | | | | + + + + + + | Differentia | AUTOMATEDComment: | | EXTERNAL | | | l Type | Testing performed at | | LAB | | | | [facility], [address] | | | | | | [place] | | | | | | [address] | | | | + + + + + + | % Segmented | 57.7Comment: Testing | % | EXTERNAL | | | | performed at [facility], [address] | | LAB | | | Neutrophils | [address], | | | | | | [place] [address] | | | | + + + + + + | % | 31.8Comment: Testing | % | EXTERNAL | | | Lymphocytes | performed at [facility], [address] | | LAB | | | | [address], | | | | | | [place] [address] | | | | + + + + + + | % Monocytes | 9.2Comment: Testing | % | EXTERNAL | | | | performed at [facility], [address] | | LAB | | | | [address], | | | | | | [place] [address] | | | | + + + + + + | % | 0.9Comment: Testing | % | EXTERNAL | | | Eosinophils | performed at [facility], [address] | | LAB | | | | [address], | | | | | | [place] [address] | | | | + + + + + + | % Basophils | 0.4Comment: Testing | % | EXTERNAL | | | | performed at [facility], [address] | | LAB | | | | [address], | | | | | | [place], [place] [address] | | | | + + + + + + | Absolute | 3.9Comment: Testing | 1.9 - 7.4 K/uL | EXTERNAL | | | Segmented | performed at [facility], [address] | | LAB | | | Neutrophils | [address], | | | | | | [place] [address] | | | | + + + + + + | Absolute | 2.1Comment: Testing | 1.0 - 3.9 K/uL | EXTERNAL | | | Lymphocytes | performed at [facility], [address] | | LAB | | | | [address], | | | | | | [place] [address] | | | | + + + + + + | Absolute | 0.6Comment: Testing | 0 - 0.8 K/uL | EXTERNAL | | | Monocytes | performed at [facility], [address] | | LAB | | | | [address], | | | | | | [place] [address] | | | | + + + + + + | Absolute | 0.1Comment: Testing | 0 - 0.5 K/uL | EXTERNAL | | | Eosinophils | performed at [facility], [address] | | LAB | | | | [address], | | | | | | [place] [address] | | | | + + + + + + | Absolute | 0.0Comment: Testing | 0 - 0.1 K/uL | EXTERNAL | | | Basophils | performed at [facility], [address] | | LAB | | | | [address], | | | | | | [place] [address] | | | | + + + [...] | | | | | [place] [address] | | | | + + + [...] | | | | performed at [facility], [address] | | LAB | | | | [address], | | | | | | [place] [address] | | | | + + + [...] EXTERNAL | | | | performed at [facility];[address] | | LAB | | | | [address];[place], [place] | | | | | | [address] | | | | + + + [...] | | | | | [place] [address] | | | | + + + + + + | Triglycerid | 37Comment: Testing | mg/dL | EXTERNAL | | | es | performed at [facility], [address] | | LAB | | | | [address], | | | | | | [place] [address] | | | | + + + + + + | HDL | 35 (L)Comment: Testing | mg/dL | EXTERNAL | | | | performed at [facility], [address] | | LAB | | | | [address], | | | | | | [place] [address] | | | | + + + + + + | LDL | 67Comment: Testing | mg/dL | EXTERNAL | | | Cholesterol | performed at [facility], [address] | | LAB | | | , [address], | | | | | Calculated, | [place] [address] | | | | | External | [...] | | | | | [place] [address] | | | | + + + + + + | K | 3.4 (L)Comment: Testing | 3.5 - 4.9 | EXTERNAL | | | | performed at [facility], [address] | mmol/L | LAB | | | | [address], | | | | | | [place] [address] | | | | + + + + + + | Cl | 108Comment: Testing | 99 - 109 mmol/L | EXTERNAL | | | | performed at [facility], [address] | | LAB | | | | [address], | | | | | | [place] [address] | | | | + + + + + + | CO2 | 21 (L)Comment: Testing | 23 - 32 mmol/L | EXTERNAL | | | | performed at [facility], [address] | | LAB | | | | [address], | | | | | | [place] [address] | | | | + + + + + + | Anion Gap | 12Comment: Testing | 5 - 20 mmol/L | EXTERNAL | | | | performed at [facility], [address] | | LAB | | | | [address], | | | | | | [place] [address] | | | | + + + + + + | Glucose, | 107 (H)Comment: Testing | 65 - 99 mg/dL | EXTERNAL | | | Fasting | performed at [facility], [address] | | LAB | | | | [address], | | | | | | [place] [address] | | | | + + + + + + | BUN | 15Comment: Testing | 8 - 25 mg/dL | EXTERNAL | | | | performed at [facility], [address] | | LAB | | | | [address], | | | | | | [place] [address] | | | | + + + + + + | Creatinine | 0.74Comment: Testing | 0.70 - 1.30 | EXTERNAL | | | | performed at [facility], [address] | mg/dL | LAB | | | | [address], | | | | | | [place] [address] | | | | + + + + + + | BUN/Creatin | 20Comment: Testing | | EXTERNAL | | | ine Ratio | performed at [facility], [address] | | LAB | | | | [address], | | | | | | [place] [address] | | | | + + + + + + | Calcium | 8.9Comment: Testing | 8.5 - 10.2 | EXTERNAL | | | | performed at [facility], [address] | mg/dL | LAB | | | | [address], | | | | | | [place] [address] | | | | + + + + + + | Protein, | 6.1 (L)Comment: Testing | 6.3 - 8.2 g/dL | EXTERNAL | | | Total | performed at [facility], [address] | | LAB | | | | [address], | | | | | | [place] [address] | | | | + + + + + + | Albumin | 4.0Comment: Testing | 3.6 - 5.0 g/dL | EXTERNAL | | | | performed at [facility], [address] | | LAB | | | | [address], | | | | | | [place] [address] | | | | + + + + + + | Globulin | 2.1Comment: Testing | 1.3 - 4.9 g/dL | EXTERNAL | | | | performed at [facility], [address] | | LAB | | | | [address], | | | | | | [place] [address] | | | | + + + + + + | A/G Ratio | 1.9Comment: Testing | 1.0 - 2.4 | EXTERNAL | | | | performed at [facility], [address] | | LAB | | | | [address], | | | | | | [place] [address] | | | | + + + + + + | Bilirubin | 1.4Comment: Testing | 0.1 - 1.5 mg/dL | EXTERNAL | | | Total | performed at [facility], [address] | | LAB | | | | [address], | | | | | | [place] [address] | | | | + + + + + + | ALP, | 46Comment: Testing | 35 - 115 U/L | EXTERNAL | | | External | performed at [facility], [address] | | LAB | | | | [address], | | | | | | [place] [address] | | | | + + + + + + | AST | 31Comment: Testing | 10 - 45 U/L | EXTERNAL | | | | performed at [facility], [address] | | LAB | | | | [address], | | | | | | [place] [address] | | | | + + + + + + | ALT | 27Comment: Testing | 10 - 65 U/L | EXTERNAL | | | | performed at [facility], [address] | | LAB | | | | [address], | | | | | | [place] [address] | | | | + + + [...] | | | | | at [facility], [address] | | | | | | [address], | | | | | | [place] [address] | | | | + + + [...] EXTERNAL | | | | performed at [facility];[address] | | LAB | | | | [address];[place], [place] | | | | | | [address] | | | | + + + [...] | | | | | | ACUTE RI Testing | | | | | | performed at [facility];[address] | | | | | | [facility];[place], [place] | | | | | | [address] | | | | + + + [...] EXTERNAL | | | | performed at [facility];[address] | | LAB | | | | [facility];[place], [place] | | | | | | [address] | | | | + + + [...] were | | | performed using the Wrapp 3-D software and sent to PACS. Oral | | | Contrast: None IV contrast: 100 mL IsoVue 370 COMPARISON: None. 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 Oral Contrast: NoneIV contrast: 100 | | mL IsoVue 370 COMPARISON:None. 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 pacemaker via | | [...] Kevin, Rad Conversion - 07/07/2019 10:30 PM [facility] PINA LEVINE CHEST 2 VIEW FRONTAL | [...] EXTERNAL | | | | performed at [facility];[address] | | LAB | | | | [address];[place] | | | | | | [address] | | | | + + + + + -+ | RED CELL | 5.19Comment: Testing | 4.20 - 5.70 | EXTERNAL | | | COUNT | performed at [facility];[address] | M/uL | LAB | | | | [address];[place] | | | | | | [address] | | | | + + + + + -+ | Hgb | 16.8Comment: Testing | 13.2 - 17.0 | EXTERNAL | | | | performed at [facility];[address] | g/dL | LAB | | | [address];[place] | | | | | | [address] | | | | + + + + + -+ | Hematocrit, | 49.5Comment: Testing | 39.0 - 50.0 % | EXTERNAL | | | POC | performed at [facility];[address] | | LAB | | | | [address];[place] | | | | | | [address] | | | | + + + + + -+ | MCV | 95.4Comment: Testing | 80.0 - 100.0 fl | EXTERNAL | | | | performed at [facility];[address] | | LAB | | | | [address];[place] | | | | | | [address] | | | | + + + + + -+ | MCH | 32.4Comment: Testing | 27.0 - 34.0 pg | EXTERNAL | | | | performed at [facility];[address] | | LAB | | | | [address];[place] | | | | | | [address] | | | | + + + + + -+ | MCHC | 34.0Comment: Testing | 32.0 - 35.5 | EXTERNAL | | | | performed at [facility];[address] | g/dL | LAB | | | | [address];[place] | | | | | | [address] | | | | + + + + + -+ | RDW-CV | 46.8Comment: Testing | 37 - 53 fl | EXTERNAL | | | | performed at [facility];[address] | | LAB | | | | [address];[place] | | | | | | [address] | | | | + + + + + -+ | Platelet | 179Comment: Testing | 150 - 400 K/uL | EXTERNAL | | | Count | performed at [facility];[address] | | LAB | | | Plasma | [address];[place] | | | | | | [address] | | | | + + + + + -+ | MPV | 8.6Comment: Testing | fl | EXTERNAL | | | | performed at [facility];[address] | | LAB | | | | [address];[place] | | | | | | [address] | | | | + + + + + -+ | Differentia | AUTOMATEDComment: | | EXTERNAL | | | l Type | Testing performed at | | LAB | | | | [facility];[address];[place] [address] | | | | + + + + + -+ | % Segmented | 62.4Comment: Testing | % | EXTERNAL | | | | performed at [facility];[address] | | LAB | | | Neutrophils | [address];[place] | | | | | | [address] | | | | + + + + + -+ | % | 26.3Comment: Testing | % | EXTERNAL | | | Lymphocytes | performed at [facility];[address] | | LAB | | | | [address];[place] | | | | | | [address] | | | | + + + + + -+ | % Monocytes | 10.3Comment: Testing | % | EXTERNAL | | | | performed at [facility];[address] | | LAB | | | | [address];[place] | | | | | | [address] | | | | + + + + + -+ | % | 0.5Comment: Testing | % | EXTERNAL | | | Eosinophils | performed at [facility];[address] | | LAB | | | | [address];[place] | | | | | | [address] | | | | + + + + + -+ | % Basophils | 0.5Comment: Testing | % | EXTERNAL | | | | performed at [facility];[address] | | LAB | | | | [address];[place] | | | | | | [address] | | | | + + + + + -+ | Absolute | 6.3Comment: Testing | 1.9 - 7.4 K/uL | EXTERNAL | | | Segmented | performed at [facility];[address] | | LAB | | | Neutrophils | [address];[place] | | | | | | [address] | | | | + + + + + -+ | Absolute | 2.7Comment: Testing | 1.0 - 3.9 K/uL | EXTERNAL | | | Lymphocytes | performed at [facility];[address] | | LAB | | | | [address];[place] | | | | | | [address] | | | | + + + + + -+ | Absolute | 1.0 (H)Comment: Testing | 0 - 0.8 K/uL | EXTERNAL | | | Monocytes | performed at [facility];[address] | | LAB | | | | [address];[place] | | | | | | [address] | | | | + + + + + -+ | Absolute | 0.0Comment: Testing | 0 - 0.5 K/uL | EXTERNAL | | | Eosinophils | performed at [facility];[address] | | LAB | | | | [address];[place] | | | | | | [address] | | | | + + + + + -+ | Absolute | 0.1Comment: Testing | 0 - 0.1 K/uL | EXTERNAL | | | Basophils | performed at [facility];[address] | | LAB | | | | [address];[place] | | | | | | [address] | | | | + + + + + -+ | Na | 139Comment: Testing | 135 - 143 | EXTERNAL | | | | performed at [facility];[address] | mmol/L | LAB | | | | [address];[place] | | | | | | [address] | | | | + + + + + -+ | K | 3.4 (L)Comment: Testing | 3.5 - 4.9 | EXTERNAL | | | | performed at [facility];[address] | mmol/L | LAB | | | | [address];[place] | | | | | | [address] | | | | + + + + + -+ | Cl | 108Comment: Testing | 99 - 109 mmol/L | EXTERNAL | | | | performed at [facility];[address] | | LAB | | | | [address];[place] | | | | | | [address] | | | | + + + + + -+ | CO2 | 21 (L)Comment: Testing | 23 - 32 mmol/L | EXTERNAL | | | | performed at [facility];[address] | | LAB | | | | [address];[place] | | | | | | [address] | | | | + + + + + -+ | Anion Gap | 14Comment: Testing | 5 - 20 mmol/L | EXTERNAL | | | | performed at [facility];[address] | | LAB | | | | [address];[place] | | | | | | [address] | | | | + + + + + -+ | Glucose, | 124 (H)Comment: Testing | 65 - 99 mg/dL | EXTERNAL | | | Fasting | performed at [facility];[address] | | LAB | | | | [address];[place] | | | | | | [address] | | | | + + + + + -+ | BUN | 20Comment: Testing | 8 - 25 mg/dL | EXTERNAL | | | | performed at [facility];[address] | | LAB | | | | [address];[place] | | | | | | [address] | | | | + + + + + -+ | Creatinine | 0.97Comment: Testing | 0.70 - 1.30 | EXTERNAL | | | | performed at [facility];[address] | mg/dL | LAB | | | | [address];[place] | | | | | | [address] | | | | + + + + + -+ | BUN/Creatin | 21Comment: Testing | | EXTERNAL | | | ine Ratio | performed at [facility];[address] | | LAB | | | | [address];[place] | | | | | | [address] | | | | + + + + + -+ | Calcium | 8.7Comment: Testing | 8.5 - 10.2 | EXTERNAL | | | | performed at [facility];[address] | mg/dL | LAB | | | | [address];[place] | | | | | | [address] | | | | + + + + + -+ | Protein, | 7.6Comment: Testing | 6.3 - 8.2 g/dL | EXTERNAL | | | Total | performed at [facility];[address] | | LAB | | | | [address];[place] | | | | | | [address] | | | | + + + + + -+ | Albumin | 4.2Comment: Testing | 3.6 - 5.0 g/dL | EXTERNAL | | | | performed at [facility];[address] | | LAB | | | | [address];[place] | | | | | | [address] | | | | + + + + + -+ | Globulin | 3.4Comment: Testing | 1.3 - 4.9 g/dL | EXTERNAL | | | | performed at [facility];[address] | | LAB | | | | [address];[place] | | | | | | [address] | | | | + + + + + -+ | A/G Ratio | 1.2Comment: Testing | 1.0 - 2.4 | EXTERNAL | | | | performed at [facility];[address] | | LAB | | | | [address];[place] | | | | | | [address] | | | | + + + + + -+ | Bilirubin | 1.1Comment: Testing | 0.1 - 1.5 mg/dL | EXTERNAL | | | Total | performed at [facility];[address] | | LAB | | | | [address];[place] | | | | | | [address] | | | | + + + + + -+ | ALP, | 77Comment: Testing | 35 - 115 U/L | EXTERNAL | | | External | performed at [facility];[address] | | LAB | | | | [address];[place] | | | | | | [address] | | | | + + + + + -+ | AST | 35Comment: Testing | 10 - 45 U/L | EXTERNAL | | | | performed at [facility];[address] | | LAB | | | | [address];[place] | | | | | | [address] | | | | + + + + + -+ | ALT | 43Comment: Testing | 10 - 65 U/L | EXTERNAL | | | | performed at [facility];[address] | | LAB | | | | [address];[place] | | | | | | [address] | | | | + + + [...] | | | | | | at [facility];[address];[place] [address] | | | | + + + + + -+ | CK, Total | 510 (H)Comment: Testing | 55 - 400 U/L | EXTERNAL | | | | performed at [facility];[address] | | LAB | | | | [address];[place] | | | | | | [address] | | | | + + + [...] | | | | | performed at [facility];[address] | | | | | | [address];[place] | | | | | | [address] | | | | + + + + + -+ | aPTT, | 24Comment: Testing | 23 - 32 seconds | EXTERNAL | | | Patient | performed at [facility];[address] | | LAB | | | | [address];[place] | | | | | | [address] | | | | + + + + + -+ | CK-MB | 9.3 (H)Comment: Testing | 0.5 - 3.6 ng/mL | EXTERNAL | | | | performed at [facility];888 | | LAB | | | | [facility];[place], [place] | | | | | | [address] | | | | + + + [...] EXTERNAL | | | | performed at [facility];888 | uIU/mL | LAB | | | | Wally Hogan;[place] | | | | | | [address] | | | | + + + [...] EXTERNAL | | | | performed at [facility];888 | | LAB | | | | [facility];[place], [place] | | | | | | [address] | | | | + + + [...] (500), | | | | | | makeup editor TERESE NINA (2) | | | | | | on 02/27/2014 6:56:17 PM | | | | + + + + + + + + | Specimen | + + | | + + + + + | Narrative | Performed At | + + + | [facility] | [facility]TERNAL LAB | [...]
--- OUTSIDE RECORDS SUMMARY | ~2019-11-16 | XMS | Encounter Summary ---
Demographics + + + | Address | [address] | | | [place] [address] | + + + | Home Phone [...] + +------+ + | Care Manager Of Administration Name | Role | Phone | [...] Provider Unknown | | | | | [place], [place] | [phone] | | | | | [address] | | | | | | [phone] | | | +--------+ + + + [...] + + + +---------+ + + | [place]-3 Fatty | CAPS, one capsule by | [...] | | | | | | | #[id number], exp 07/2016 | | | | | [...] | Inter[facility] | | | | | [facility] | (Primary Dx); | | | | | [place] [address] | Presence of | | | | | [phone] | permanent cardiac | | | | [...] | 2018 | Monitor | | [address] [place] | Interrogation | | | | | [place], | (Primary Dx); | | | | | [place] [address] | Presence of | | | | | [phone] | permanent cardiac | | | | [...] W | | | | | | [place], | | | | | | [place] [address] | | | | | | [phone] | | | | | | | [...]
--- OUTSIDE RECORDS SUMMARY | ~2019-11-16 | XMS | Encounter Summary ---
Demographics + + + | Address | [address] | | | [place] [address] | + + + | Home Phone [...] Providers + +------+ + | Care Optical Effects Camera Operator Name | Role | Phone | + +------+ + | Kirk French MD | PCP | | + +------+ + Encounter Details +--------+ + + + + | Date | Type | Department | Care Team | Description | +--------+ + + + + | 04/07/ | Hospital | [facility] | Pia Akhtar | Spinal stenosis of | | 2016 | Encounter | MED CTR XRAY [address] | MD [address] | lumbar region | | | | [place] | [address] | | | | | [place] [address] | [place] [address] | | | | | [phone] | | | | | | | [...] + + + +---------+ + + | [place]-3 Fatty | CAPS, one capsule by | [...] Dx); | | | | | [place] [address] | Presence of | | | | | [phone] | permanent cardiac | | | | [...] 2018 | Monitor | | [address] [place] | Interrogation | | | | | [place], | (Primary Dx); | | | | | [place] [address] | Presence of | | | | | [phone] | permanent cardiac | | | | [...] W | | | | | | [place], | | | | | | [place] [address] | | | | | | [phone] | | | | | | | [...]
--- OUTSIDE RECORDS SUMMARY | ~2019-11-16 | XMS | Encounter Summary ---
Demographics + + + | Address | [address] | | | [place] [address] | + + + | Home Phone [...] Providers + +------+ + | Care Ophthalmic Technician Apprentice Name | Role | Phone | + +------+ + PCP | Unavailable | + +------+ + Encounter Details +--------+ + + + + | Date | Type | Department | Care Team | Description | +--------+ + + + + | 10/09/ | [facility] | [facility] | Jonathan, | | | 2008 | Encounter | MED CTR EMERGENCY | Martell Cr MD [address] | | | | | CENTER [address] | [place] | | | | | [place] | [place] [address] | | | | | [address] | [phone] | | | | | [phone] | | | +--------+ + + + [...] Interrogation | | | | | [place], | (Primary Dx); | | | | | [place] [address] | Presence of | | | | | [phone] | permanent cardiac | | | | [...] 2018 | Monitor | | MD Sim [facility] | Interrogation | | | | | [place], | (Primary Dx); | | | | | [place] [address] | Presence of | | | | | [phone] | permanent cardiac | | | | [...] W | | | | | | [place], | | | | | | [place] [address] | | | | | | [phone] | | | | | | | | +--------+ + + + + documented as of this encounter Visit Diagnoses Not on filedocumented in this encounter"
--- OUTSIDE RECORDS SUMMARY | ~2019-11-16 | XMS | Encounter Summary ---
Demographics + + + | Address | [address] | | | [place] [address] | + + + | Home Phone [...] Providers + +------+ + | Care Service Aide Name | Role | Phone [...] 2019 | | GASTROENTEROLOGY | [address], [place] | | | | | [address] [place] | [address] [place], [place] | | | | | [address] [place], [place] | [address] | | | | | [address] | | | | | | [phone] | | | +--------+ + + + [...] | Monitor | | MD [address] | Interrogation | | | | | [place], | (Primary Dx); | | | | | [place] [address] | Presence of | | | | | [phone] | permanent cardiac | | | | [...] | Monitor | | MD [address] | Interrogation | | | | | [place], | (Primary Dx); | | | | | [place] [address] | Presence of | | | | | [phone] | permanent cardiac | | | | [...] | | | | | | [place] [address] | | | | | | [phone] | | | | | | | | +--------+ + + + + documented as of this encounter Visit Diagnoses Not on filedocumented in this encounter"
--- OUTSIDE RECORDS SUMMARY | ~2019-11-16 | XMS | Encounter Summary ---
Demographics + + + | Address | [address] | | | [place] [address] | + + + | Home Phone [...] Team Providers + +------+ + | Care Casualty Insurance Claim Adjuster Name | Role | [...] [address] | | | | | | [place], [place] | (Fax) | | | | | [address] | | | | | | [phone] | | | +--------+ + + + [...] 2019 | Monitor | | [address] | Interrogation | | | | | [place], | (Primary Dx); | | | | | [place] [address] | Presence of | | | | | [phone] | permanent cardiac | | | | [...] Interrogation | | | | | [place], | (Primary Dx); | | | | | [place] [address] | Presence of | | | | | [phone] | permanent cardiac | | | | [...] W | | | | | | [place], | | | | | | [place] [address] | | | | | | [phone] | | | | | | | | +--------+ + + + + documented as of this encounter Visit Diagnoses Not on filedocumented in this encounter"
--- OUTSIDE RECORDS SUMMARY | ~2019-11-16 | XMS | Encounter Summary ---
Demographics + + + | Address | [address] | | | [place] [address] | + + + | Home Phone [...] Team Providers + +------+ + | Care Faculty Administrator Name | Role | Phone | + +------+ + PCP | Unavailable | + +------+ + Encounter Details +--------+ + + + + | Date | Type | Department | Care Team | Description | +--------+ + + + + | 07/20/ | [facility] | [facility] | Hunter Antunez, | | | 2009 - | Encounter | MED CTR MED ONC | [address] | | | | | [address] [place] | [place] | | | 07/24/ | | [place] [address] | [address] | | | 2009 | | [phone] | | | +--------+ + + + [...] 2019 | Monitor | | [address] | Interrogation | | | | | [place], | (Primary Dx); | | | | | [place] [address] | Presence of | | | | | [phone] | permanent cardiac | | | | [...] 2018 | Monitor | | MD Sim [facility] | Interrogation | | | | | [place], | (Primary Dx); | | | | | [place] [address] | Presence of | | | | | [phone] | permanent cardiac | | | | [...] W | | | | | | [place], | | | | | | [place] [address] | | | | | | [phone] | | | | | | | | +--------+ + + + + documented as of this encounter Visit Diagnoses Not on filedocumented in this encounter"
--- OUTSIDE RECORDS SUMMARY | ~2019-11-16 | XMS | Encounter Summary ---
Demographics + + + | Address | [address] | | | [place] [address] | + + + | Home Phone [...] Team Providers + +------+ + | Care Wheelman Name | Role | Phone | + [...] | CARDIOLOGY [address] | [address] [place] | card ) | | | | [place], | [place], | | | | | [place] [address] | [place] [address] | | | | | [phone] | [phone] | | | | | | | [...] Monitor | | MD [address] [place] | Interrogation | | | | | [place], | (Primary Dx); | | | | | [place] [address] | Presence of | | | | | [phone] | permanent cardiac | | | | [...] Monitor | | MD [address] [place] | Interrogation | | | | | [place], | (Primary Dx); | | | | | [place] [address] | Presence of | | | | | [phone] | permanent cardiac | | | | [...] | | | | | | [place] [address] | | | | | | [phone] | | | | | | | | +--------+ + + + + documented as of this encounter Visit Diagnoses Not on filedocumented in this encounter"
--- OUTSIDE RECORDS SUMMARY | ~2019-11-16 | XMS | Encounter Summary ---
Demographics + + + | Address | [address] | | | [place] [address] | + + + | Home Phone [...] Organization | [facility] | | | and [...] Providers + +------+ + | Care Theatrical Variety Agent Name | Role | Phone | [...] [address] | | | | | [place], | [place], | | | | | [place] [address] | [place] [address] | | | | | [phone] | [phone] | | | | | | | [...] | 12/30/ | Implant | Cardiology | Dajlit Singletary, | Remote Device | | 2018 | Monitor | | MD [address] [place] | Interrogation | | | | | [place], | (Primary Dx); | | | | | [place] [address] | Presence of | | | | | [phone] | permanent cardiac | | | | [...] 2018 | Monitor | | MD [facility] | Interrogation | | | | | [place], | (Primary Dx); | | | | | [place] [address] | Presence of | | | | | [phone] | permanent cardiac | | | | [...] | | | | | | [place] [address] | | | | | | [phone] | | | | | | | [...] Resulting Agency Comment | + + | [facility] | + + + +---------+ + [...] [address] | [place] | [phone] | | [facility] | | [address] | | | - LABORATORY | | [...]
--- OUTSIDE RECORDS SUMMARY | ~2019-11-16 | XMS | Encounter Summary ---
Demographics + + + | Address | [address] | | | [place] [address] | + + + | Home Phone [...] Providers + +------+ + | Care Director Enterprise Sales Name | Role | Phone | + +------+ + | Kirk French MD | PCP | | + +------+ + Encounter Details +--------+ + + + + | Date | Type | Department | Care Team | Description | +--------+ + + + + | 07/05/ | Hospital | [facility] | Conversion | Acute neck pain | | 2017 | Encounter | [facility] | Transaction, | | | | | [address] | Provider Unknown | | | | | [address] [place], [place] | [phone] | | | | | [address] | | | | | | [phone] | Apolonia Ruano | | | | | | MD Shelly [address] | | | | | | [address] | | | | | | [place], [place] | | | | | | [address] | | | | | | [phone] | | +--------+ + + + + [...] + + + +---------+ + + | [place]-3 Fatty | CAPS, one capsule by | [...] Dx); | | | | | [place] [address] | Presence of | | | | | [phone] | permanent cardiac | | | | [...] Interrogation | | | | | [place], | (Primary Dx); | | | | | [place] [address] | Presence of | | | | | [phone] | permanent cardiac | | | | [...] W | | | | | | [place], | | | | | | [place] [address] | | | | | | [phone] | | | | | | | [...]
--- OUTSIDE RECORDS SUMMARY | ~2019-11-16 | XMS | Encounter Summary ---
Demographics + + + | Address | [address] | | | [place] [address] | + + + | Home Phone [...] Providers + +------+ + | Care Photo Mask Inspector Name | Role | Phone | [...] | CARDIOLOGY [address] | MD [address] [place] | | | | | [place], | [place], | | | | | [place] [address] | [place] [address] | | | | | [phone] | [phone] | | | | | | | [...] Interrogation | | | | | [place], | (Primary Dx); | | | | | [place] [address] | Presence of | | | | | [phone] | permanent cardiac | | | | [...] | [facility] | Interrogation | | | | | [place], | (Primary Dx); | | | | | [place] [address] | Presence of | | | | | [phone] | permanent cardiac | | | | [...] | | | | | | [place] [address] | | | | | | [phone] | | | | | | | | +--------+ + + + + documented as of this encounter Visit Diagnoses Not on filedocumented in this encounter"
--- OUTSIDE RECORDS SUMMARY | ~2019-11-16 | XMS | Encounter Summary ---
Demographics + + + | Address | [address] [place] [address] | | | [place] [address] | + + + | Home Phone [...] [place] | | | | | [address] | | + + + + + Care Team Providers + +------+ + | Care Compressor Service Technician Name | Role | Phone [...] | [facility] [address] | MD [address] | | | | | [address] | [facility] [place] | | | | | Mailcode: Center | [address] | | | | | for Health and | [phone] | | | | | [facility] 2 | | | | | | [place], [place] | | | | | | [address] | | | | | | [phone] | | | +--------+ + + + [...]
--- OUTSIDE RECORDS SUMMARY | ~2019-11-16 | XMS | Encounter Summary ---
Demographics + + + | Address | [address] | | | [place] [address] | + + + | Home Phone [...] Providers + +------+ + | Care Commercial Field Inspector Name | Role | Phone | + +------+ + | Michael Amanda DO | PCP | | + +------+ + Encounter Details +--------+ + + + + | Date | Type | Department | Care Team | Description | +--------+ + + + + | 05/11/ | Hospital | [facility] | Conversion | Lumbago; | | 2013 | Encounter | MEDICAL CENTER XRAY | Transaction, | Postlaminectomy | | | | [address] | Provider Unknown | syndrome, cervical | | | | [place], [place] | | region; Cervicalgia | | | | [address] | (Fax) | | | | | [phone] | | | +--------+ + + + [...] + + +---------+ + + | [place]-3 Fatty | CAPS, one capsule by | [...] 1147 Date of Service: 05/11/141145 Status: Signed Records Administrator: Christine Mcgraw Report called to Brittany morejon [...] 11/20/ | Implant | Cardiology | Dajlit Singletary, | Remote Device | | 2018 | Monitor | | MD [address] [place] | Interrogation | | | | | [place], | (Primary Dx); | | | | | [place] [address] | Presence of | | | | | [phone] | permanent cardiac | | | | [...] 401 [facility] | Interrogation | | | | | [place], | (Primary Dx); | | | | | [place] [address] | Presence of | | | | | [phone] | permanent cardiac | | | | [...] W | | | | | | [place], | | | | | | [place] [address] | | | | | | [phone] | | | | | | | [...] + + | Kalpesh Brown - 07/07/2019 10:30 PM PDT HISTORY: 54-year-old [...]
--- OUTSIDE RECORDS SUMMARY | ~2019-11-16 | XMS | Encounter Summary ---
Demographics + + + | Address | [address] | | | [place] [address] | + + + | Home Phone [...] | | CARDIOLOGY [address] | [address] [place] | | | | | [place], | [place], | | | | | [place] [address] | [place] [address] | | | | | [phone] | [phone] | | | | | | | [...] | Monitor | | MD [address] [place] | Interrogation | | | | | [place], | (Primary Dx); | | | | | [place] [address] | Presence of | | | | | [phone] | permanent cardiac | | | | [...] | Monitor | | MD [address] [place] | Interrogation | | | | | [place], | (Primary Dx); | | | | | [place] [address] | Presence of | | | | | [phone] | permanent cardiac | | | | [...] | | | | | | [place] [address] | | | | | | [phone] | | | | | | | | +--------+ + + + + documented as of this encounter Visit Diagnoses Not on filedocumented in this encounter"
--- OUTSIDE RECORDS SUMMARY | ~2019-11-16 | XMS | Encounter Summary ---
Demographics + + + | Address | [address] | | | [place] [address] | + + + | Home Phone [...] Team Providers + +------+ + | Care Ordinary Seaman Name | Role | Phone | + +------+ + | Kirk French MD | PCP | | + +------+ + Encounter Details +--------+ + + + + | Date | Type | Department | Care Team | Description | +--------+ + + + + | 12/24/ | Orders Only | [facility] | Conversion | | | 2018 | | [facility] | Transaction, | | | | | PRIMARY CARE [address] | Provider Unknown | | | | | [address] | [phone] | | | | | [place] | | | | | | [address] | | | | | | [phone] | | | +--------+ + + + [...] | Monitor | | MD [address] | Interrogation | | | | | [place], | (Primary Dx); | | | | | [place] [address] | Presence of | | | | | [phone] | permanent cardiac | | | | [...] | Monitor | | MD [address] [place] | Interrogation | | | | | [place], | (Primary Dx); | | | | | [place] [address] | Presence of | | | | | [phone] | permanent cardiac | | | | [...] W | | | | | | [place], | | | | | | [place] [address] | | | | | | [phone] | | | | | | | [...] LAB | | Historically converted procedure from [facility] Epic environment | | + + + [...]
--- OUTSIDE RECORDS SUMMARY | ~2019-11-16 | XMS | Encounter Summary ---
Demographics + + + | Address | [address] | | | [place] [address] | + + + | Home Phone [...] Providers + +------+ + | Care Tar Pot Worker Name | Role | Phone | [...] + + | 08/14/ | Telephone | [facility] | Michael Amanda, | Appointment | | 2012 | | GROUP IMAGING [address] | DO [address] | | | | | [facility] | [place] | | | | | [place], [place] | [address] | | | | | [address] | | | | | | [phone] | | | +--------+ + + + [...] | | [facility] | Interrogation | | | | | [place], | (Primary Dx); | | | | | [place] [address] | Presence of | | | | | [phone] | permanent cardiac | | | | [...] 2018 | Monitor | | [address] [place] | Interrogation | | | | | [place], | (Primary Dx); | | | | | [place] [address] | Presence of | | | | | [phone] | permanent cardiac | | | | [...] | | | | | | [place], | | | | | | [place] [address] | | | | | | [phone] | | | | | | | | +--------+ + + + + documented as of this encounter Visit Diagnoses Not on filedocumented in this encounter"
--- OUTSIDE RECORDS SUMMARY | ~2019-11-16 | XMS | Encounter Summary ---
Demographics + + + | Address | [address] | | | [place] [address] | + + + | Home Phone [...] Team Providers + +------+ + | Care De Icer Finisher Name | Role | Phone | [...] | unspecified | MD Jacek | [place] | | | | | type | [address] | [place], | | | | | Unintentiona | [place] | [place] [address] | | | | | l weight | [place], [place] | Phone: | | | | | loss | [address] | [phone] | | | | | Procedures | Phone: | Fax: | | | | | [facility] | [phone] | [phone] | | | | | INTRALUMINAL | Fax: | | | | | | | [phone] | | | | | | ESOPHAGUS-IL [...] (Primary Dx); | | | | [address] [place], [place] | [place] [address] | Unintentional weight | | | | [address] | [phone] | loss | | | [phone] | | | +--------+ + + + [...] Interrogation | | | | | [address], | (Primary Dx); | | | | | [place] [address] | Presence of | | | | | [phone] | permanent cardiac | | | | [...] | 2018 | Monitor | | [address] [place] | Interrogation | | | | | [place], | (Primary Dx); | | | | | [place] [address] | Presence of | | | | | [phone] | permanent cardiac | | | | [...] W | | | | | | [place], | | | | | | [place] [address] | | | | | | [phone] | | | | | | | [...]
--- OUTSIDE RECORDS SUMMARY | ~2019-11-16 | XMS | Encounter Summary ---
Demographics + + + | Address | [address] | | | [place] [address] | + + + | Home Phone [...] Providers + +------+ + | Care Molding Manager Name | Role | Phone | [...] + + | 06/18/ | Emergency | [facility] | Dom Graham, | Cervical pain (neck) | | 2013 | | MED CTR EMERGENCY | MD [address] | (Primary Dx); | | | | CENTER [address] [place] | [place] | Paresthesia and pain | | | | [place], [place] | [address] | of both upper | | | | [address] | | extremities | | | | [phone] | | | +--------+ + + + [...] cannot be sent through Care Everywhere.PARAESTHESIAS ( LAO)NECK SPRAIN/STRAIN (LAO)documented in this encounter Medications at Time of [...] + + +---------+ + + | [place]-3 Fatty | CAPS, one capsule by [...] | | 2019 | Monitor | | [place] [facility] | Interrogation | | | | | [place], | (Primary Dx); | | | | | [place] [address] | Presence of | | | | | [phone] | permanent cardiac | | | | [...] | 2018 | Monitor | | [address] [place] | Interrogation | | | | | [place], | (Primary Dx); | | | | | [place] [address] | Presence of | | | | | [phone] | permanent cardiac | | | | [...] | | | | | | [place] [address] | | | | | | [phone] | | | | | | | [...] + | MISCELLANEOUS LAB | | | [phone] | + +---------+ + + | MISCELANIOUS LAB | | | [phone] | + +---------+ + + documented in this encounter Visit Diagnoses + + | Diagnosis | + + | Cervical pain (neck) - Primary Cervicalgia | + + | Paresthesia and pain of both upper extremities Disturbance of skin sensation | + + documented in this encounter
--- OUTSIDE RECORDS SUMMARY | ~2019-11-16 | XMS | Encounter Summary ---
Demographics + + + | Address | [address] | | | [place] [address] | + + + | Home Phone [...] Providers + +------+ + | Care Environmental Compliance Manager Name | Role | Phone | + +------+ + PCP | Unavailable | + +------+ + Encounter Details +--------+ + + + + | Date | Type | Department | Care Team | Description | +--------+ + + + + | 02/28/ | [facility] | [facility] | Geri Angel, | | | 2011 | Encounter | MED CTR XRAY [address] | STONE LATHE OPERATOR [address] [place] | | | | | [place] | St [place] | | | | | [place] [address] | [address] | | | | | [phone] | | | +--------+ + + + [...] Interrogation | | | | | [facility], | (Primary Dx); | | | | | [place] [address] | Presence of | | | | | [phone] | permanent cardiac | | | | [...] Interrogation | | | | | [place], | (Primary Dx); | | | | | [place] [address] | Presence of | | | | | [phone] | permanent cardiac | | | | [...] W | | | | | | [place], | | | | | | [place] [address] | | | | | | [phone] | | | | | | | [...] Performed At | + + + | [facility] Diagnostic Imaging Department | [facility] | | [address] [facility] | [facility] | | LEFT HEART CATHETERIZATION | [facility] | | REPORT 02/29/2012 HEMODYNAMICS: Aortic pressure [...] was taken to | | | Cardiac Lockstitch Front Maker. He was prepared and draped in the usual fashion | | | under a sterile technique and local anesthesia, percutaneous access | | | was obtained using #6- [place] sheath in the right femoral artery. | | | Right heart cath was not performed in this patient. Left | | | ventriculography was performed using #6-[place] pigtail catheter. | | | The selective coronary angiography were then performed in several | | | sagittal and oblique projection using the 6-[place] JL 4 and #6 [place]er | | | 3DRC diagnostic catheters. The [...] Transcribed | | | Date/Time: 02/29/2012 09:09 Loss Control Consultant: | | | <Electronically Signed by Daljit Singletary MD [facility]> 02/29/12 | | | 1002 | | + + + + + | Procedure Note | + + | Kevin, Rad Conversion - 12/29/2013 5:04 PM [facility] | | Diagnostic Imaging Department | | [address] [facility] | | | | | | [...] patient was taken to Cardiac | | Lockstitch Front Maker. He was prepared and draped in the usual fashion under a sterile | | technique and local anesthesia, percutaneous access was obtained using #6- | | [place] sheath in the right femoral artery. Right heart cath was not performed | | in this patient. Left ventriculography was performed using #6-[place] pigtail | | catheter. The selective coronary angiography were then performed in several | | sagittal and oblique projection using the 6-[place]er JL 4 and #6 [place] 3DRC | | diagnostic catheters. The patient [...] | Transcribed Date/Time: 02/29/2012 09:09 | | Loss Control Consultant: | | <Electronically Signed by Daljit Singletary MD [facility]> 02/29/12 1002 | + + + [...]
--- OUTSIDE RECORDS SUMMARY | ~2019-11-16 | XMS | Encounter Summary ---
Demographics + + + | Address | [address] | | | [place] [address] | + + + | Home Phone [...] Team Providers + +------+ + | Care Monument Stonecutter Name | Role | Phone | + [...] | Aneurysmal | [place], | [address] [place] | | | | | dilatation | [place] | [place], | | | | | ([facility]) | [address] | [place] | | | | | Procedures | [place] | [address] | | | | | ECHO | [place], | Phone: | | | | | Complete | [place] | [phone] | | | | | | [address] | Fax: | | | | | | Phone: | [phone] | | | | | | [phone] | | | | | | | Fax: | | | | | | | [phone] | | +--------+--------+ + + + + [...] | | | | | Aneurysmal | [place], | [address] | | | | | dilatation | [place] | [place], | | | | | ([facility]) | [address] | [place] | | | | | Procedures | [place] | [address] | | | | | ECHO | [place], | Phone: | | | | | Complete | [place] | [phone] | | | | | | [address] | Fax: | | | | | | Phone: | [phone] | | | | | | [phone] | | | | | | | Fax: | | | | | | | [phone] | | +--------+--------+ + + + + Encounter Details +--------+ + + + + | Date | Type | Department | Care Team | Description | +--------+ + + + + | 11/16/ | Hospital | [facility] | Silvia, | Aneurysmal | | 2017 | Encounter | MED CTR ECHO [address] | Irma, TOBACCO CLASSER [address] | dilatation (HCC) | | | | [place] | [place], | | | | | [place], [place] [address] | [place] [address] | | | | | [phone] | [phone] | | | | | | | [...] Dx); | | | | | [place] [address] | Presence of | | | | | [phone] | permanent cardiac | | | | [...] | 2018 | Monitor | | MD [facility] [place] | Interrogation | | | | | St. 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] LA Volume: 46.33 ml | | EF Zddijwboa81% Left Ventricle Diastolic Dimension: 5.12 cm Systolic [...] LA Volume: 46.33 ml | | EF Ukepjrjay34% | | | | Left Ventricle | [...]
--- OUTSIDE RECORDS SUMMARY | ~2019-11-16 | XMS | Encounter Summary ---
Demographics + + + | Address | [address] | | | [place] [address] | + + + | Home Phone [...] +------+ + | Care Automatic Spinning Lathe Setter Name | Role | Phone | + +------+ + PCP | Unavailable | + +------+ + Encounter Details +--------+ + + + + | Date | Type | Department | Care Team | Description | +--------+ + + + + | 01/20/ | [facility] | [facility] | Geri Angel, | | | 2009 | Encounter | MED CTR GENERIC OP | TOPPIECE CUTTER [address] [place] | | | | | CONV DEPT [address] | [address] [place] | | | | | [place], | [id number] | | | | | [place] [address] | | | | | | [phone] | | | +--------+ + + + [...] Interrogation | | | | | [place], | (Primary Dx); | | | | | [place] [address] | Presence of | | | | | [phone] | permanent cardiac | | | | [...] Interrogation | | | | | [place], | (Primary Dx); | | | | | [place] [address] | Presence of | | | | | [phone] | permanent cardiac | | | | [...] | | | | | | [place] [address] | | | | | | [phone] | | | | | | | | +--------+ + + + + documented as of this encounter Visit Diagnoses Not on filedocumented in this encounter"
--- OUTSIDE RECORDS SUMMARY | ~2019-11-16 | XMS | Encounter Summary ---
Demographics + + + | Address | [address] | | | [place] [address] | + + + | Home Phone [...] + +------+ + | Care Rn Clinical Resource Name | Role | Phone | + +------+ + PCP | Unavailable | + +------+ + Encounter Details +--------+ + + + + | Date | Type | Department | Care Team | Description | +--------+ + + + + | 01/21/ | Emergency | [facility] | Kirill Dominique | Unspecified Chest | | 2009 | | MEDICAL CENTER | MD Jonas [address] | Pain | | | | EMERGENCY CENTER | [address] [place] | | | | | [address] | [address] | | | | | [place] | [phone] | | | | | [address] | | | | | | [phone] | | | +--------+ + + + [...] | 11/20/ | Implant | Cardiology | WongDaljit carmona, | Remote Device | | 2019 | Monitor | | MD [facility] | Interrogation | | | | | [place], | (Primary Dx); | | | | | [place] [address] | Presence of | | | | | [phone] | permanent cardiac | | | | [...] 2018 | Monitor | | MD [address] [facility] | Interrogation | | | | | [place], | (Primary Dx); | | | | | [place] [address] | Presence of | | | | | [phone] | permanent cardiac | | | | [...] W | | | | | | [place], | | | | | | [place] [address] | | | | | | [phone] | | | | | | | | +--------+ + + + + documented as of this encounter Visit Diagnoses + + | Diagnosis | + + | Chest pain, unspecified | + + documented in this encounter"
--- OUTSIDE RECORDS SUMMARY | ~2019-11-16 | XMS | Encounter Summary ---
Demographics + + + | Address | [address] | | | [place] [address] | + + + | Home Phone [...] Providers + +------+ + | Care Machine Riveter Name | Role | Phone | + +------+ + PCP | Unavailable | + +------+ + Encounter Details +--------+ + + + + | Date | Type | Department | Care Team | Description | +--------+ + + + + | 11/05/ | [facility] | [facility] | Naresh Mckeon | | | 2009 | Encounter | MED CTR SLEEP | MD Chaya [address] [place] [address] | | | | | CENTER [address] [place] | [place] | | | | | [place] | [place] [address] | | | | | [address] | [phone] | | | | | [phone] | | | +--------+ + + + [...] Interrogation | | | | | [facility] [place], | (Primary Dx); | | | | | [place] [address] | Presence of | | | | | [phone] | permanent cardiac | | | | [...] Interrogation | | | | | [place], | (Primary Dx); | | | | | [place] [address] | Presence of | | | | | [phone] | permanent cardiac | | | | [...] W | | | | | | [place], | | | | | | [place] [address] | | | | | | [phone] | | | | | | | | +--------+ + + + + documented as of this encounter Visit Diagnoses Not on filedocumented in this encounter"
--- OUTSIDE RECORDS SUMMARY | ~2019-11-16 | XMS | Encounter Summary ---
Demographics + + + | Address | [address] | | | [place] [address] | + + + | Home Phone [...] Team Providers + +------+ + | Care Global Commodity Manager Name | Role | Phone [...] unspecified | [address] | [address] | | | | | type | [address] | [place], | | | | | Procedures | [place], | [place] | | | | | [place] Nuclear | [place] [address] | [address] | | | | | Stress Test | Phone: | Phone: | | | | | (Vasodilator | [phone] | [phone] | | | | | ) CHG | Fax: | Fax: | | | | | MYOCARDIAL | [phone] | [phone] | | | | | SPECT | | | | | | | MULTIPLE | | | | | | | STUDIES ID | | | | | | | CV STRS TST | | | | | | | XERS&/OR RX | | | | | | | CONT ECG W/O | | | | | | | I&R ID | | | | | | | [...] | type | [address] | [address] | | | | | Procedures | [place] | [place], | | | | | FUP | [place] | [place] [address] | | | | | | [address] | Phone: | | | | | | Phone: | [phone] | | | | | | [phone] | Fax: | | | | | | Fax: | [phone] | | | | | | [phone] | | +--------+ + + + + + Encounter Details +--------+---------+ + + + | Date | Type | Department | Care Team | Description | +--------+---------+ + + + | 06/27/ | Office | [facility] | Sydni Singletary, | Pacemaker | | 2017 | Visit | CARDIOLOGY [address] | [facility] | reprogramming/check | | | | [place] [place], | [place], | DO NOT DELETE | | | | [place] [address] | [place] [address] | (Primary Dx); Chest | | | | [phone] | [phone] | pain, unspecified | | | | [...] of non-critical coronary artery d isease involving [place] coronary artery of [place] heart without angina pectoris, essential h ypertension, [...] that time, patient has been seen at [place] emergency department on 018 for chest pain [...] Preventative health care Coronary artery disease involving [place] coronary artery of [place] heart without angina pectoris Cannabis abuse, daily [...] by mouth every evening 90 tablet 0 [facility] Natural Products (OSTEO BI-FLEX/5-LOXIN ADVANCED PO) Take [...] 3RD DOSE, CALL 911 100 tablet 3 [place]-3 Fatty Acids (SALMON OIL-1000 PO) CAPS, one [...] to go back in 3 days to [facility] for an attempt of ablation under general [...] PVCs. 2. Non-critical Coronary artery disease involving [place] coronary artery of [place] heart [facility] angina pectoris: A. Normal exercise sestamibi stress test on 05/25/09. [facility]F by [facility] ed SPECT was 53%. B. Echocardiogram [...] cannot completely be ruled out . [facility] 12/25/13, shows non critical coronary artery [...] He is in a class I of [place] [employer] functiona l class. There is [...] of presyncope [facility]28[facility] thought to have vasovagal symptoms. B. [...] reviewed and edited this note. Allyson Curtis, Rn Stars 06/27/2018 I, Sydni Singletary MD, personally performed the services described in this documentation, as scribed in my presence and it is both accurate and complete. Allyson Curtis, Med Ass t 06/27/2018 14:15 Electronically signed by: Sydni Singletary MD [facility] 06/27/2018 Portions of this chart may have been created with [employer] voice recognition software. Occasi onal wrong-word or [...] 2019 | Monitor | | [address] [place] | Interrogation | | | | | [place], | (Primary Dx); | | | | | [place] [address] | Presence of | | | | | [phone] | permanent cardiac | | | | [...] 2019 | Monitor | | [facility] | Interrogation | | | | | [place], | (Primary Dx); | | | | | [place] [address] | Presence of | | | | | [phone] | permanent cardiac | | | | [...] W | | | | | | [place], | | | | | | [place] [address] | | | | | | [phone] | | | | | | | [...] 13:12 Wireless even study from | [facility] | | 8/30 until 08/22/2018. Baseline EKG shows atrial paced rhythm with | | | heart rate of 75-130 bpm. PACs in couplets and PVCs were noted. | | + + + + +---------+ + + | Performing | Address | City/State/Zipcode | Phone Number | | Organization | | | | + +---------+ + + | [facility] | | | | + +---------+ [...] MD | | | | | | ([id number]) on 06/27/2018 | | | | | [...]
--- OUTSIDE RECORDS SUMMARY | ~2019-11-16 | XMS | Encounter Summary ---
Demographics + + + | Address | [address] | | | [place] [address] | + + + | Home Phone [...] + +------+ + | Care Assistant Professor Of Music Name | Role | Phone | + [...] [address] | | | | | | [place], [place] | (Fax) | | | | | [address] | | | | | | [phone] | | | +--------+ + + + [...] 2019 | Monitor | | [address] | Interrogation | | | | | [place], | (Primary Dx); | | | | | [place] [address] | Presence of | | | | | [phone] | permanent cardiac | | | | [...] Interrogation | | | | | [facility], | (Primary Dx); | | | | | [place] [address] | Presence of | | | | | [phone] | permanent cardiac | | | | [...] W | | | | | | [place], | | | | | | [place] [address] | | | | | | [phone] | | | | | | | | +--------+ + + + + documented as of this encounter Visit Diagnoses Not on filedocumented in this encounter"
--- OUTSIDE RECORDS SUMMARY | ~2019-11-16 | XMS | Encounter Summary ---
Demographics + + + | Address | [address] | | | [place] [address] | + + + | Home Phone [...] Providers + +------+ + | Care Board Turner Name | Role | Phone | [...] [address] | | | | | | [place], [place] | (Fax) | | | | | [address] | | | | | | [phone] | | | +--------+ + + + [...] 2019 | Monitor | | [address] [place] | Interrogation | | | | | [place], | (Primary Dx); | | | | | [place] [address] | Presence of | | | | | [phone] | permanent cardiac | | | | [...] Interrogation | | | | | [place], | (Primary Dx); | | | | | [place] [address] | Presence of | | | | | [phone] | permanent cardiac | | | | [...] W | | | | | | [place], | | | | | | [place] [address] | | | | | | [phone] | | | | | | | | +--------+ + + + + documented as of this encounter Visit Diagnoses Not on filedocumented in this encounter"
--- OUTSIDE RECORDS SUMMARY | ~2019-11-16 | XMS | Encounter Summary ---
Demographics + + + | Address | [address] | | | [place] [address] | + + + | Home Phone [...] Providers + +------+ + | Care Geometry Professor Name | Role | Phone | [...] abdominal | [address] | [address], | | | | | pain | [address] [place] | [address] | | | | | Chronic pain | [address] | [place], | | | | | syndrome | [place], [place] | [place] [address] | | | | | Procedures | [address] | Phone: | | | | | Office Visit | Phone: | [phone] | | | | | | [phone] | Fax: | | | | | | Fax: | [phone] | | | | | | [phone] | | +--------+--------+ + + + + Encounter Details +--------+---------+ + + + | Date | Type | Department | Care Team | Description | +--------+---------+ + + + | 12/02/ | Office | [facility] [place] | Emmanuel Daniel MD | Diarrhea, | | 2018 | Visit | GASTROENTEROLOGY | [address], [place] | unspecified type | | | | [address] [place] | [address] [place], [place] | (Primary Dx); Weight | | | | [address] [place], [place] | [address] | loss, | | | | [address] | | unintentional; | | | | [phone] | | Generalized | | | | [...] Interrogation | | | | | [place], | (Primary Dx); | | | | | [place] [address] | Presence of | | | | | [phone] | permanent cardiac | | | | [...] | 2019 | Monitor | | [address] | Interrogation | | | | | [place], | (Primary Dx); | | | | | [place] [address] | Presence of | | | | | [phone] | permanent cardiac | | | | [...] | | | | | | [place], | | | | | | [place] [address] | | | | | | [phone] | | | | | | | [...]
--- OUTSIDE RECORDS SUMMARY | ~2019-11-16 | XMS | Encounter Summary ---
Demographics + + + | Address | [address] [place] [address] | | | [place] [address] | + + + | Home Phone [...] [place] | | | | | [address] | | + + + + + Care Team Providers + +------+ + | Care Vice President Of Software Engineering Name | Role | Phone | [...] as of this encounter Progress Notes Interface, Poultry Processing Supervisor In - 07/19/2006 3:05 AM PDTCLINIC DATE: 06/13/2002 [facility] REFERRING PHYSICIAN: Eugene Vera D.O. [address] [place] [address] Mr. Sanchez is a new patient. He [...] proceed. Martell Allen M.D. ELIZABETH / KATTY [id number] / [id number] / [id number] / [id number] cc: Eugene Vera D.O. [address] [place] [id number] signed by Interface, Poultry Processing Supervisor In at 07/19/2006 3:0 5 AM PDTdocumented in this encounter Plan of Treatment Not on filedocumented as of this encounter Visit Diagnoses Not on filedocumented in this encounter
--- OUTSIDE RECORDS SUMMARY | ~2019-11-16 | XMS | Encounter Summary ---
Demographics + + + | Address | [address] | | | [place] [address] | + + + | Home Phone [...] Providers + +------+ + | Care Die Set Up Worker Name | Role | Phone [...] | | | | CENTER [address] | [place] | (Primary Dx) | | 07/28/ | | [place] | [address] | | | 2017 | | [address] | | | | | | [phone] | | | +--------+ + + + [...] sent through Care Everywhere.Chest Pain, Non cardiac (Bhutanese)documented in this encounter Medications at Time of [...] + + + +---------+ + + | Wells Tannery-3 Fatty | CAPS, one capsule by | [...] | Monitor | | MD [address] | Interrogation | | | | | [place], | (Primary Dx); | | | | | [place] [address] | Presence of | | | | | [phone] | permanent cardiac | | | | [...] | Monitor | | MD [address] | Interrogation | | | | | [place], | (Primary Dx); | | | | | [place] [address] | Presence of | | | | | [phone] | permanent cardiac | | | | [...] | | | | | [place], | | | | | | [place] [address] | | | | | | [phone] | | | | | | | [...] | | n - | | | 07/27/ | | | 2017 | | | [...] W?MRN: | | | | | | [id number] | | | [id number] | | | his | | | [...] | | | ent/60 | | | [id number] | | | -5586- | | | [...] | | | St. | | | Thida | | | y | | | [...] | | | ext. | | | [address] | | | or go | | [...] | | | M.D. | | | Firefighter [employer] | | | al | | | [...] | | | | | | [employer] | | | | | [...] [address] | [place] | [phone] | | [facility] | | [address] | | | - LABORATORY | | [...] | | | | | [facility] | | | | | | MEDICAL [...] 14 | 7 - 18 mg/dL | [facility] | | | | | | [facility] | | | | | | MEDICAL | | | | | | CENTER - | | | | | | LABORATORY | | + + + + + + | Creatinine | 1.06 | 0.60 - 1.30 | [facility] | | | | | mg/dL | [facility] | | | | | | MEDICAL | | | | | | CENTER - | | | | | | LABORATORY | | + + + + + + | eGFR if not | >60Comment: GLOMERULAR | >=60 | [facility] | | | | FILTRATION | mL/min/1.73m2 | [facility] | | | [place] | RATE,ESTIMATED | | MEDICAL | | | | mL/min/1.14l6Imft than | | CENTER - | | [...] [address] | [place] | [phone] | | [facility] | | [address] | | | - LABORATORY | | [...] | | | Eosinophils | | | APOLONIA | | | [...] Neutrophils | | K/uL | [facility] [...] + | [address] | [address] | [place] | [phone] | | [facility] | | [address] | | | - LABORATORY | | [...] | | | | ANGELA MARADIAGA MD ([id number]) | | | | | | on [...] | | | | | [place]. Kalia coronado, | | | | | | + [...] | | | | | [place]. Kalia coronado, | | | | | | + [...]
--- OUTSIDE RECORDS SUMMARY | ~2019-11-16 | XMS | Encounter Summary ---
Demographics + + + | Address | [address] | | | [place] [address] | + + + | Home Phone [...] Team Providers + +------+ + | Care Reticle Printer Name | Role | Phone | [...] 2014 | | CARDIOLOGY [address] | CONCRETE MIXING PLANT SUPERINTENDENT [address] | | | | | [place], | [place], [place] | | | | | [place] [address] | [address] | | | | | [phone] | | | +--------+ + + + [...] 11/20/ | Implant | Cardiology | Gemini Rashadotto, | Remote Device | | 2019 | Monitor | | MD [address] [place] | Interrogation | | | | | [place], | (Primary Dx); | | | | | [place] [address] | Presence of | | | | | [phone] | permanent cardiac | | | | [...] 2018 | Monitor | | MD [address] [facility] | Interrogation | | | | | [place], | (Primary Dx); | | | | | [place] [address] | Presence of | | | | | [phone] | permanent cardiac | | | | [...] | | | | | | [place] [address] | | | | | | [phone] | | | | | | | | +--------+ + + + + documented as of this encounter Visit Diagnoses Not on filedocumented in this encounter"
--- OUTSIDE RECORDS SUMMARY | ~2019-11-16 | XMS | Encounter Summary ---
Demographics + + + | Address | [address] | | | [place] [address] | + + + | Home Phone [...] Team Providers + +------+ + | Care Unix Administrator Name | Role | Phone | [...] | Incontinence | [address] [place] | [place], | | | | | | [place] | [place] [address] | | | | | | [address] | Phone: | | | | | | Phone: | [phone] | | | | | | [phone] | Fax: | | | | | | Fax: | [phone] | | | | | | [phone] | | +--------+ + + + + [...] | diurnal enuresis | | | | [place], [place] | [place], [place] | (Primary Dx); BPH | | | | [address] | [address] | with | | | | [phone] | | obstruction/lower | | | | [...] Haleigh rodarte states that the surgeon in [place] who performed his neck surgery is no longer practicing a nd was apparently disciplined and had his license revoked by the [facility]. He has ed marijuana for his [...] Ulcerative colitis ([facility]); Ches t pain; SINUS BRADYCARDIA; HEPATITIS B; PUD; FATTY LIVER DISEASE; SUBSTANCE ABUSE, MULTIPLE; Preventative health care (06/26/2013); Bladder troubles; Tuberculosis; Anginal pain ([facility]); St roke ([facility]); Prostate troubles; and Neurological disorder. Past Surgical [...] needed for Chest pain. 25 tablet 12 [place]-3 Fatty Acids (SALMON OIL-1000 PO) CAPS, one capsule by mouth daily twice daily ONE TOUCH DELICA LANCETS [facility] [...] Date/Time: 04/22/2012 16:56 Transcribed Date/Time: 04/22/2012 17:32 Hvac Installer: <Electronically Signed by Jama Solis MD> 04/23/12 [...] Date/Time: 04/23/2012 10:54 Transcribed Date/Time: 04/23/2012 11:06 Hvac Installer: <Electronically Signed by Jama Solis MD> 04/24/12 3416 IMPRESSION: 1. Nocturnal and diurnal enuresis. I [...] believe that the recommendations from [facility] neurosurgeon, Dr. Demarco, on 03/13/2014 would still [...] have not thoroughly proofread this note, and mds manager erro rs may occur. CC: Kirk French [...] Interrogation | | | | | [facility], | (Primary Dx); | | | | | [place] [address] | Presence of | | | | | [phone] | permanent cardiac | | | | [...] Interrogation | | | | | [place], | (Primary Dx); | | | | | [place] [address] | Presence of | | | | | [phone] | permanent cardiac | | | | [...] W | | | | | | [place], | | | | | | [place] [address] | | | | | | [phone] | | | | | | | [...] 1.001 - 1.030 | | | | [place], | | | | | | [facility], [...]
--- OUTSIDE RECORDS SUMMARY | ~2019-11-16 | XMS | Encounter Summary ---
Demographics + + + | Address | [address] | | | [place] [address] | + + + | Home Phone [...] Team Providers + +------+ + | Care Fringing Machine Operator Name | Role | Phone | + +------+ + PCP | Unavailable | + +------+ + Encounter Details +--------+ + + + + | Date | Type | Department | Care Team | Description | +--------+ + + + + | 02/21/ | [facility] | [facility] | Geri Angel, | | | 2011 | Encounter | MED CTR XRAY [address] | SENIOR QUALITY CONTROL INSPECTOR [address] | | | | | [place] | St [place] | | | | | [place] [address] | [address] | | | | | [phone] | | | +--------+ + + + [...] Interrogation | | | | | [facility], | (Primary Dx); | | | | | [place] [address] | Presence of | | | | | [phone] | permanent cardiac | | | | [...] Interrogation | | | | | [place], | (Primary Dx); | | | | | [place] [address] | Presence of | | | | | [phone] | permanent cardiac | | | | [...] W | | | | | | [place], | | | | | | [place] [address] | | | | | | [phone] | | | | | | | | +--------+ + + + + documented as of this encounter Visit Diagnoses Not on filedocumented in this encounter"
--- OUTSIDE RECORDS SUMMARY | ~2019-11-16 | XMS | Encounter Summary ---
Demographics + + + | Address | [address] | | | [place] [address] | + + + | Home Phone [...] Providers + +------+ + | Care Manager Hardware Name | Role | Phone | + [...] | 2018 | Changes | GASTROENTEROLOGY | Motor Grader [employer] Grade | | | | | [address] [facility] | | | | | | [address] [place] | | | | | | [address] | | | | | | [phone] | | | +--------+ + + + [...] | 2018 | Monitor | | [address] | Interrogation | | | | | [place], | (Primary Dx); | | | | | [place] [address] | Presence of | | | | | [phone] | permanent cardiac | | | | [...] | Monitor | | MD [address] | Interrogation | | | | | [place], | (Primary Dx); | | | | | [place] [address] | Presence of | | | | | [phone] | permanent cardiac | | | | [...] W | | | | | | [place], | | | | | | [place] [address] | | | | | | [phone] | | | | | | | | +--------+ + + + + documented as of this encounter Visit Diagnoses Not on filedocumented in this encounter"
--- OUTSIDE RECORDS SUMMARY | ~2019-11-16 | XMS | Encounter Summary ---
Demographics + + + | Address | [address] | | | [place] [address] | + + + | Home Phone [...] Providers + +------+ + | Care Social Science Instructor Name | Role | Phone | [...] | 05/08/ | Telephone | [facility] | Emmanuel Daniel MD | Other | | 2019 | | GASTROENTEROLOGY | [address], [place] | | | | | [address] [place] | [address] [place], [place] | | | | | [address] [place], [place] | [address] | | | | | [address] | | | | | | [phone] | | | +--------+ + + + [...] | Monitor | | MD [address] | Interrogation | | | | | [place], | (Primary Dx); | | | | | [place] [address] | Presence of | | | | | [phone] | permanent cardiac | | | | [...] | Monitor | | MD [address] | Interrogation | | | | | [place], | (Primary Dx); | | | | | [place] [address] | Presence of | | | | | [phone] | permanent cardiac | | | | [...] | | | | | | [place] [address] | | | | | | [phone] | | | | | | | | +--------+ + + + + documented as of this encounter Visit Diagnoses Not on filedocumented in this encounter"
--- OUTSIDE RECORDS SUMMARY | ~2019-11-16 | XMS | Encounter Summary ---
Demographics + + + | Address | [address] | | | [place] [address] | + + + | Home Phone [...] Team Providers + +------+ + | Care Impersonator Character Name | Role | Phone | + [...] | CARDIOLOGY [address] | [address] | Interrogation | | | | [place], | [place], | (Primary Dx); | | | | [place] [address] | [place] [address] | Presence of | | | | [phone] | [phone] | permanent cardiac | | | | [...] Dx); | | | | | [place] [address] | Presence of | | | | | [phone] | permanent cardiac | | | | [...] | 2018 | Monitor | | [address] | Interrogation | | | | | [place], | (Primary Dx); | | | | | [place] [address] | Presence of | | | | | [phone] | permanent cardiac | | | | [...] | | | | | | [place], | | | | | | [place] [address] | | | | | | [phone] | | | | | | | [...]
--- OUTSIDE RECORDS SUMMARY | ~2019-11-16 | XMS | Encounter Summary ---
Demographics + + + | Address | [address] | | | [place] [address] | + + + | Home Phone [...] Team Providers + +------+ + | Care Upholstery Instructor Name | Role | Phone | [...] | | | | CENTER [address] | [place], [place] | insufficiency | | | | [place], [place] | [address] | | | | | [address] | | | | | | [phone] | | | +--------+ + + + [...] sent through Care Everywhere.PERIPHERAL KENYETTA A, BILATERAL (YI)documented in this encounter Medications at Time of [...] + + + +---------+ + + | Shickley-3 Fatty | CAPS, one capsule by | [...] | | | | | | | #[id number], exp 07/2016 | | | | | [...] Interrogation | | | | | [facility], | (Primary Dx); | | | | | [place] [address] | Presence of | | | | | [phone] | permanent cardiac | | | | [...] | 2018 | Monitor | | [address] | Interrogation | | | | | [place], | (Primary Dx); | | | | | [place] [address] | Presence of | | | | | [phone] | permanent cardiac | | | | [...] W | | | | | | [place], | | | | | | [place] [address] | | | | | | [phone] | | | | | | | | +--------+ + + + + documented as of this encounter Visit Diagnoses + + | Diagnosis | + + | Peripheral edema - Primary Edema | + + | Venous insufficiency Unspecified venous (peripheral) insufficiency | + + documented in this encounter
--- OUTSIDE RECORDS SUMMARY | ~2019-11-16 | XMS | Encounter Summary ---
Demographics + + + | Address | [address] | | | [place] [address] | + + + | Home Phone [...] Providers + +------+ + | Care News Library Director Name | Role | Phone | + +------+ + PCP | Unavailable | + +------+ + Encounter Details +--------+ + + + + | Date | Type | Department | Care Team | Description | +--------+ + + + + | 12/01/ | Hospital | [facility] | | | | 1997 | Encounter | MED CTR EMERGENCY | | | | | | CENTER [address] | | | | | | [place] | | | | | | [address] | | | | | | [phone] | | | +--------+ + + + [...] Dx); | | | | | [place] [address] | Presence of | | | | | [phone] | permanent cardiac | | | | | | pacemaker; | | | | | | Sinoatrial node | | | | | | dysfunction (HCC) | | | | | | with symptomatic | | | | | | bradycardia | +--------+ + + + + | 11/20/ | Implant | Cardiology | Daljti Singletary, | Remote Device | | 2018 | Monitor | | [address] [facility] | Interrogation | | | | | [place], | (Primary Dx); | | | | | [place] [address] | Presence of | | | | | [phone] | permanent cardiac | | | | [...] W | | | | | | [place], | | | | | | [place] [address] | | | | | | [phone] | | | | | | | | +--------+ + + + + documented as of this encounter Visit Diagnoses Not on filedocumented in this encounter"
--- OUTSIDE RECORDS SUMMARY | ~2019-11-16 | XMS | Encounter Summary ---
Demographics + + + | Address | [address] | | | [place] [address] | + + + | Home Phone [...] Team Providers + +------+ + | Care Splitter Operator Name | Role | Phone | [...] Eva R[place]SE | | | | | [place], [place] | [address] | | | | | [address] | [place] [address] | | | | | [phone] | [phone] | | | | | | | [...] | Monitor | | MD [address] | Interrogation | | | | | [place], | (Primary Dx); | | | | | [place] [address] | Presence of | | | | | [phone] | permanent cardiac | | | | [...] | | MD [address] [facility] | Interrogation | | | | | [place], | (Primary Dx); | | | | | [place] [address] | Presence of | | | | | [phone] | permanent cardiac | | | | [...] W | | | | | | [place], | | | | | | [place] [address] | | | | | | [phone] | | | | | | | [...]
--- OUTSIDE RECORDS SUMMARY | ~2019-11-16 | XMS | Encounter Summary ---
Demographics + + + | Address | [address] | | | [place] [address] | + + + | Home Phone [...] Providers + +------+ + | Care Laser Technician Name | Role | Phone | [...] [place] | | | | | [address] [place], [place] | [address] | | | | | [address] | | | | | | [phone] | | | +--------+ + + + [...] | Monitor | | MD [address] | Interrogation | | | | | [place], | (Primary Dx); | | | | | [place] [address] | Presence of | | | | | [phone] | permanent cardiac | | | | [...] | Monitor | | MD [address] | Interrogation | | | | | [place], | (Primary Dx); | | | | | [place] [address] | Presence of | | | | | [phone] | permanent cardiac | | | | [...] | | | | | | [place] [address] | | | | | | [phone] | | | | | | | [...]
--- OUTSIDE RECORDS SUMMARY | ~2019-11-16 | XMS | Encounter Summary ---
Demographics + + + | Address | [address] | | | [place] [address] | + + + | Home Phone [...] Providers + +------+ + | Care Form Tamper Operator Name | Role | Phone | [...] + | 06/02/ | Telephone | [facility] | Daljit Singletary, | Other (symptoms) | | 2019 | | CARDIOLOGY [address] | MD [address] | | | | | [place], | [place], | | | | | [place] [address] | [place] [address] | | | | | [phone] | [phone] | | | | | | | [...] Interrogation | | | | | [facility] [place], | (Primary Dx); | | | | | [place] [address] | Presence of | | | | | [phone] | permanent cardiac | | | | [...] | Monitor | | MD [address] | Interrogation | | | | | [facility] [place], | (Primary Dx); | | | | | [place] [address] | Presence of | | | | | [phone] | permanent cardiac | | | | [...] W | | | | | | [place], | | | | | | [place] [address] | | | | | | [phone] | | | | | | | | +--------+ + + + + documented as of this encounter Visit Diagnoses Not on filedocumented in this encounter"
--- OUTSIDE RECORDS SUMMARY | ~2019-11-16 | XMS | Encounter Summary ---
Demographics + + + | Address | [address] | | | [place] [address] | + + + | Home Phone [...] Team Providers + +------+ + | Care Weed Inspector Name | Role | Phone | + +------+ + | Kirk French MD | PCP | | + +------+ + Encounter Details +--------+ + + + + | Date | Type | Department | Care Team | Description | +--------+ + + + + | 10/25/ | Hospital | [facility] | Kirk French | Chronic pain | | 2017 | Encounter | MED CTR ULTRASOUND | MD Brea Eva [place] | disorder; Stomach | | | | [address] [place] | [address] | ache; Obesity, | | | | [place], [place] | [place] [address] | unspecified | | | | [address] | [phone] | classification, | | | | [phone] | | unspecified obesity | | | [...] + + + +---------+ + + | Pandora-3 Fatty | CAPS, one capsule by | [...] | Monitor | | MD [address] | Interrogation | | | | | [place], | (Primary Dx); | | | | | [place] [address] | Presence of | | | | | [phone] | permanent cardiac | | | | [...] 2018 | Monitor | | [address] [place] | Interrogation | | | | | [place], | (Primary Dx); | | | | | [place] [address] | Presence of | | | | | [phone] | permanent cardiac | | | | [...] | | | | | | [place], | | | | | | [place] [address] | | | | | | [phone] | | | | | | | [...]
--- OUTSIDE RECORDS SUMMARY | ~2019-11-16 | XMS | Encounter Summary ---
Demographics + + + | Address | [address] [place] [address] | | | [place] [address] | + + + | Home Phone [...] [place] | | | | | [address] | | + + + + + Care Team Providers + +------+ + | Care Live In Companion Name | Role | Phone | + [...] | | 2019 | | Center at [facility] [address] | MD [address] | | | | | [address] | [facility] [place] | | | | | Mailcode: [place] | [address] | | | | | for Health and | [phone] | | | | | [facility] [address] | | | | | | [facility] [place] | | | | | | [address] | | | | | | [phone] | | | +--------+ + + + [...]
--- OUTSIDE RECORDS SUMMARY | ~2019-11-16 | XMS | Encounter Summary ---
Demographics + + + | Address | [address] | | | [place] [address] | + + + | Home Phone [...] Team Providers + +------+ + | Care Trial Attorney Name | Role | Phone | + +------+ + PCP | Unavailable | + +------+ + Encounter Details +--------+ + + + + | Date | Type | Department | Care Team | Description | +--------+ + + + + | 06/17/ | Hospital | [facility] | | | | 2008 | Encounter | MED CTR EMERGENCY | | | | | | [place] [address] | | | | | | [place] | | | | | | [address] | | | | | | [phone] | | | +--------+ + + + [...] Dx); | | | | | [place] [address] | Presence of | | | | | [phone] | permanent cardiac | | | | [...] Interrogation | | | | | [place], | (Primary Dx); | | | | | [place] [address] | Presence of | | | | | [phone] | permanent cardiac | | | | [...] W | | | | | | [place], | | | | | | [place] [address] | | | | | | [phone] | | | | | | | | +--------+ + + + + documented as of this encounter Visit Diagnoses Not on filedocumented in this encounter"
--- OUTSIDE RECORDS SUMMARY | ~2019-11-16 | XMS | Encounter Summary ---
Demographics + + + | Address | [address] | | | [place] [address] | + + + | Home Phone [...] Team Providers + +------+ + | Care Conservation Biology Professor Name | Role | Phone | [...] | MED CTR EXTERNAL | MD [address] | | | | | IMAGING | Jay [place]ORPE | | | | | [phone] | [place] [address] | | +--------+ + + + + [...] Interrogation | | | | | [facility], | (Primary Dx); | | | | | [place] [address] | Presence of | | | | | [phone] | permanent cardiac | | | | [...] Interrogation | | | | | [facility], | (Primary Dx); | | | | | [place] [address] | Presence of | | | | | [phone] | permanent cardiac | | | | [...] W | | | | | | [place], | | | | | | [place] [address] | | | | | | [phone] | | | | | | | [...]
--- OUTSIDE RECORDS SUMMARY | ~2019-11-16 | XMS | Encounter Summary ---
Demographics + + + | Address | [address] | | | [place] [address] | + + + | Home Phone [...] Providers + +------+ + | Care Event Staff Name | Role | Phone | [...] Eva ROUSE | | | | | [place], [place] | [address] | | | | | [address] | [place] [address] | | | | | [phone] | [phone] | | | | | | | [...] | Monitor | | MD [address] | Interrogation | | | | | [place], | (Primary Dx); | | | | | [place] [address] | Presence of | | | | | [phone] | permanent cardiac | | | | [...] 2018 | Monitor | | MD [facility] | Interrogation | | | | | [place], | (Primary Dx); | | | | | [place] [address] | Presence of | | | | | [phone] | permanent cardiac | | | | [...] W | | | | | | [place], | | | | | | [place] [address] | | | | | | [phone] | | | | | | | [...] | + +--------+ + + + | EULA GOOD | Routin | 12/31/2016 | | Results [...]
--- OUTSIDE RECORDS SUMMARY | ~2019-11-16 | XMS | Encounter Summary ---
Demographics + + + | Address | [address] | | | [place] [address] | + + + | Home Phone [...] Team Providers + +------+ + | Care Ledger Clerk Name | Role | Phone | [...] type ER | [address] | [address] | | | | | FUP | [place] | [place], | | | | | Procedures | [place], [place] | [place] [address] | | | | | FUP - SUW & | [address] | Phone: | | | | | EVM PT, LAST | Phone: | [phone] | | | | | SEEN | [phone] | Fax: | | | | | 08-24-18 | Fax: | [phone] | | | | | | [phone] | | +--------+ + + + + [...] | | | | CENTER [address] | [address] [place] | (Primary Dx) | | | | [place], [place] | [place] [address] | | | | | [address] | [phone] | | | | | [phone] | | | +--------+ + + + [...] + + + +---------+ + + | [place]-3 Fatty | CAPS, one capsule by | [...] Shaista Singletarywong, | Remote Device | | 2019 | Monitor | | MD [facility] | Interrogation | | | | | [place], | (Primary Dx); | | | | | [place] [address] | Presence of | | | | | [phone] | permanent cardiac | | | | [...] Interrogation | | | | | [place], | (Primary Dx); | | | | | [place] [address] | Presence of | | | | | [phone] | permanent cardiac | | | | [...] W | | | | | | [place], | | | | | | [place] [address] | | | | | | [phone] | | | | | | | [...] | | | | ANGELA MARADIAGA MD ([id number]) | | | | | | on [...] | | | | | | [employer] | | | | | [...] [address] | [place] | [phone] | | [facility] | | [address] | | | - LABORATORY | | [...] + | [facility] | [address] | [place] | [phone] | | [facility] | | [address] | | | - LABORATORY | | [...] - 1.030 | [facility] | | | [place] | | | [facility] | | [...] [address] | [place] | [phone] | | [facility] | | [address] | | | - LABORATORY | | [...] + + | Performing | Address | City/State/[facility] | Phone Number | | Organization | | | | + + + + + | [facility] | [address] | [place] | [phone] | | [facility] | | [address] | | | - LABORATORY | | [...] [address] | [place] | [phone] | | [facility] | | [address] | | | - LABORATORY | | [...] | | | | | | [employer] | | | | | [...] + | [facility] | [address] | [place] | [phone] | | [facility] | | [address] | | | - LABORATORY | | [...] | [address] | | | SYRIAN | RATE,ESTIMATED | | MEDICAL | | | | mL/min/[id number] than | | CENTER - | | [...] + | [facility] | [address] | [place] | [phone] | | [facility] | | [address] | | | [...] | | | | | WBC's | [address] [address] | | | [...] [address] | [place] | [phone] | | [facility] | | [address] | | | - LABORATORY | | [...] | | | | ANGELA MARADIAGA MD ([id number]) | | | | | | on [...]
--- OUTSIDE RECORDS SUMMARY | ~2019-11-16 | XMS | Encounter Summary ---
Demographics + + + | Address | [address] | | | [place] [address] | + + + | Home Phone [...] Providers + +------+ + | Care Transportation Museum Helper Name | Role | Phone | [...] | | | | CENTER [address] | [address] [place] | | | | | [place], [place] | [place] [address] | | | | | [address] | [phone] | | | | | [phone] | | | +--------+ + + + [...] sent through Care Everywhere.Diarrhea, Unkno wn Cause (Slovak)documented in this encounter Medications at Time of [...] + + + +---------+ + + | [place]-3 Fatty | CAPS, one capsule by | [...] | | | | | | | elem coronary | | | | | | | artery of elem | | | | | | | [...] | Monitor | | MD [address] | Interrogation | | | | | [place], | (Primary Dx); | | | | | [place] [address] | Presence of | | | | | [phone] | permanent cardiac | | | | [...] | Monitor | | MD [address] | Interrogation | | | | | [place], | (Primary Dx); | | | | | [place] [address] | Presence of | | | | | [phone] | permanent cardiac | | | | [...] W | | | | | | [address] [place], | | | | | | [place] [address] | | | | | | [phone] | | | | | | | [...] | | n - | | | /18/ | | | 2019 | | | 2:18 | | | [...] | | | FICATI | | | ON?06/ | | | 18/201 | | | 9 | | | 14:16? | | | HODGEN | | | , | | | FREDER | | | ICK | | | W?MRN: | | | | | | [id number] | | | [id number] | | | riteri | | | [...] | | | St. | | | [place] | | | y | | | [...] | | | St. | | | [place] | | | y | | | [...] | | | St. | | | [place] | | | y H. | | [...] | | | St. | | | [place] | | | y H. | | [...] | | | St. | | | [facility] | | | M.C. | | | [...] | | | M.D. | | | Electrician Chief | | | al | | | [...] | | | ent/60 | | | [id number] | | | -[id number] | | | [...] | | | ed.? | | | 2018 | | | [...] PM CLINICAL HISTORY: ABDOMINAL PAIN COMPARISON: CT March 11 and more | | remote imaging [...] | | | Lavender | | | STJ[facility] MARTINEZ | | | Top Tube | [...] + | [facility] | [address] | [place] | [phone] | | [facility] | | [address] | | | - LABORATORY | | [...] [address] | [place] | [phone] | | [facility] | | [address] | | | - LABORATORY | | | | + + + + + Sedimentation Rate (05/09/2019 4:42 PM PDT) + +-------+ + + + | Component | Value | Ref Range | Performed | Pathologist | | | | | At | Signature | + +-------+ + + + | ESR | 6 | <20 mm/hr | [facility] [...] [address] | [place] | [phone] | | [facility] | | [address] | | | - LABORATORY | | [...] [address] | [place] | [phone] | | [facility] | | [address] | | | - LABORATORY | | [...] + | [facility] | [address] | [place] | [phone] | | [facility] | | [address] | | | - LABORATORY | | [...] | [facility] | | | DOMINICAN | RATE,ESTIMATED | | MEDICAL | | | | mL/min/1.61u1Lplb than | | CENTER - | | [...] + | [facility] | [address] | [place] | [phone] | | [facility] | | [address] | | | - LABORATORY | | [...] | | | Granulocyte | | | [facility] | | | s | | | MEDICAL | | | | | | CENTER - | | | | | | LABORATORY | | + +-------+ + + + | Absolute | 4.15 | 1.80 - 8.50 | [facility] | | | Neutrophils | | K/uL | [facility] | | | | | | MEDICAL | | | | | | CENTER - | | | | | | LABORATORY | | + +-------+ + + + | Absolute | 1.67 | 0.60 - 3.20 | [facility] | | | Lymphocytes | | K/uL | ST[facility]uan [facility] | | | | | | MEDICAL | | | | | | CENTER - | | | | | | LABORATORY | | + +-------+ + + + | Absolute | 0.57 | 0.00 - 1.00 | [facility] | | | Monocytes | | K/uL | [facility] | | | | | | MEDICAL | | | | | | CENTER - | | | | | | LABORATORY | | + +-------+ + + + | Absolute | 0.03 | 0.00 - 0.40 | [facility] | | | Eosinophils | | K/uL | [facility] | | [...] + | [facility] | [address] | [place] | [phone] | | [facility] | | [address] | | | - LABORATORY | | [...] - 1.030 | [facility] | | | [place] | | | [facility] | | [...] [address] | [place] | [phone] | | [facility] | | [address] | | | - LABORATORY | | [...] | | | imaging CT study, Starting Wed | | | | | | | [...] PDT | | | | | ONCE, Dorothy 05/09/19 at 1615, For 1 | | | | | | | dose | | | | | | + +---------+ +--------+-------+---+ +---+---+ | | | +---+---+ documented in this encounter"
--- OUTSIDE RECORDS SUMMARY | ~2019-11-16 | XMS | Encounter Summary ---
Demographics + + + | Address | [address] | | | [place] [address] | + + + | Home Phone [...] Team Providers + +------+ + | Care Rack Production Worker Name | Role | Phone | [...] | ER FUP | [address] | [address] | | | | | Procedures | [place], | [place], | | | | | F[place] | [place] [address] | [place] [address] | | | | | | Phone: | Phone: | | | | | | [phone] | [phone] | | | | | | Fax: | Fax: | | | | | | [phone] | [phone] | +--------+--------+ + + + + Encounter Details +--------+---------+ + + + | Date | Type | Department | Care Team | Description | +--------+---------+ + + + | 02/11/ | Office | [facility] [place] | [place], | Coronary artery | | 2016 | Visit | CARDIOLOGY [address] | Janeen BULK PALLET BUILDER [address] | disease involving | | | | [place], | [place], | cherokee coronary | | | | [place] [address] | [place] [address] | artery of cherokee | | | | [phone] | [phone] | heart without angina | | | [...] documented as of this encounter Progress Notes Jaenen Vega ARNP - 2017 2:56 PM PDTFormatting of this note might be differen t from the original. PATIENT NAME: Moe Sanchez : 1960: AGE: 57 y.o. PRIMARY CARE: Kirk French MD OUTPATIENT FOLLOW UP VISIT Date of Service: 2017 HISTORY OF PRESENT ILLNESS: Moe Sanchez is a 57 y.o. 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 He sleeps on 1 pillow at [facility] without any shortness of breath. Overall, he [...] Preventative health care Coronary artery disease involving cherokee coronary artery of cherokee heart without angina pectoris Cannabis abuse, daily [...] by mouth every evening 90 tablet 3 [facility] Products (OSTEO BI-FLEX/5-LOXIN ADVANCED PO) Take [...] 3RD DOSE, CALL 911 100 tablet 3 [place]-3 Fatty Acids (SALMON OIL-1000 PO) CAPS, one [...] was found Confirmed by ANGELA MARADIAGA MD ([id number]) on 01/25/2017 6:45:26 AM LAB RESULTS reviewed [...] PLTEX 162 11/05/2016 I reviewed records from [facility] for emergency department visit o n 01/2017 which is summarized in the HPI. Above data and testing is reviewed this visit; testing below is historical data unless othe rwise specified. ASSESSMENT: 1. Essential hypertension with goal blood pressure less than 130/80: A. Today it has been well controlled 110 mmHg. He is in class I of t he [place] 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 On physical examination there are no signs of fluid overload. 2. Non-critical Coronary artery disease involving cherokee coronary a rtery of cherokee heart without angina pectoris: A. Normal exercise [...] by Dr. Gambino at [facility] on 01/30/2013. Patient had spontaneous [...] to go back in 3 days to [place] for an attempt of ablation under general [...] a normal stable device function. Estimated remaining [facility] longevity is 3.5 years.. 5. Lightheadedness [...] this chart may have been created with [employer] voice recognition software. Occasi onal wrong-word or [...] Interrogation | | | | | [place], | (Primary Dx); | | | | | [place] [address] | Presence of | | | | | [phone] | permanent cardiac | | | | [...] Interrogation | | | | | [place], | (Primary Dx); | | | | | [place] [address] | Presence of | | | | | [phone] | permanent cardiac | | | | [...] W | | | | | | [place], | | | | | | [place] [address] | | | | | | [phone] | | | | | | | | +--------+ + + + + documented as of this encounter Visit Diagnoses + + | Diagnosis | + + | Coronary artery disease involving cherokee coronary artery of cherokee heart without | | angina pectoris - Primary | + + | Essential hypertension with goal blood pressure less than 130/80 | + + | Hyperlipidemia, mixed Mixed hyperlipidemia | + + documented in this encounter
--- OUTSIDE RECORDS SUMMARY | ~2019-11-16 | XMS | Encounter Summary ---
Demographics + + + | Address | [address] | | | [place] [address] | + + + | Home Phone [...] Team Providers + +------+ + | Care Sanding Machine Operator Name | Role | Phone [...] | initial encounter; | | | | [place], [place] | | Elevated blood | | | | [address] | | pressure reading; | | | | [phone] | | Numbness and | | | [...] + + + +---------+ + + | [place]-3 Fatty | CAPS, one capsule by | [...] Dx); | | | | | [place] [address] | Presence of | | | | | [phone] | permanent cardiac | | | | [...] Interrogation | | | | | [place], | (Primary Dx); | | | | | [place] [address] | Presence of | | | | | [phone] | permanent cardiac | | | | [...] W | | | | | | [place], | | | | | | [place] [address] | | | | | | [phone] | | | | | | | [...]
--- OUTSIDE RECORDS SUMMARY | ~2019-11-16 | XMS | Encounter Summary ---
Demographics + + + | Address | [address] | | | [place] [address] | + + + | Home Phone [...] Providers + +------+ + | Care Account Auditor Name | Role | Phone | + +------+ + | Michael Amanda DO | PCP | | + +------+ + Encounter Details +--------+ + + + + | Date | Type | Department | Care Team | Description | +--------+ + + + + | 01/30/ | Hospital | [facility] | Jay Gambino MD | | | 2012 - | Encounter | [facility] | [address] | | | | | CARDIAC TELEMETRY | [address] [place], | | | 01/31/ | | [address] | [place] [address] | | | 2012 | | [place] | [phone] | | | | | [address] | | | | | | [phone] | | | +--------+ + + + [...] 1960 ADMISSION DATE: 01/30/2013 DISCHARGE DATE: 01/31/2013 [id number] / [id number] ADMITTING DIAGNOSES: 1. Symptomatic PVCs. 2. Sinus [...] 150, 1 to 2 tabs daily. 10. Christoval-3 fatty acids 1000 mg b.i.d. MOE GAY ADM:01/30/13 [id number] 01/31/13 [place] DISCHARGE SUMMARY [id number] [facility] Carmela Cuevas PAC B [facility] MD Meena Pleitez THIS REPORT IS CONFIDENTIAL AND NOT TO BE RELEASED WITHOUT PROPER AUTHORIZATION. [facility] 11. Valacyclovir 500 mg daily. B. New medication added: Diltiazem CD 180 a day. FOLLOWUP: The patient has a followup appointment on 03/02/2013 at 10:[address] Niles meza at the [facility] [place], [address]. No heavy lifting or driving times 48 hours. YOANA Barlow MD A P [facility] #[id number] cc: MD Carmela Pleitez PA-C Electronically Signed 02/06/13 1616 LAKESHIA Barlow Electronically Signed 02/20/13 0731 Jay Gambino MD MOE GAY ADM:01/30/13 [id number] 01/31/13 [place] DISCHARGE SUMMARY [id number] [facility] LAKESHIA Barlow B [facility] Jay Gambino MD R THIS REPORT IS CONFIDENTIAL AND NOT TO BE RELEASED WITHOUT PROPER AUTHORIZATION.Electronica lly signed by Jael Brown at 02/20/2013 7:31 AM FRANCYZzCarmela Moncada - 02/01/20 13 8:44 AM PDT PATIENT NAME: MOE GAY Sex/Age: M / 52Y : 1960 ADMISSION DATE: 01/30/2013 DISCHARGE DATE: 01/31/2013 [id number] / [id number] ADMITTING DIAGNOSES: 1. Symptomatic PVCs. 2. Sinus [...] 150, 1 to 2 tabs daily. 10. Christoval-3 fatty acids 1000 mg b.i.d. MOE GAY ADM:01/30/13 [id number] 01/31/13 [place] DISCHARGE SUMMARY [id number] [facility] LAKESHIA Barlow B [facility] MD Meena Pleitez THIS REPORT IS CONFIDENTIAL AND NOT TO BE RELEASED WITHOUT PROPER AUTHORIZATION. [facility] 11. Valacyclovir 500 mg daily. B. New medication added: Diltiazem CD 180 a day. FOLLOWUP: The patient has a followup appointment on 03/02/2013 at 10:[address] Niles meza at the [facility] [place], [address]. No heavy lifting or driving times 48 hours. YOANA Barlow MD A P [facility] #[id number] cc: MD Carmela Pleitez PA-C Electronically Signed 02/06/13 1616 LAKESHIA Barlow MOE GAY ADM:01/30/13 [id number] 01/31/13 [place] DISCHARGE SUMMARY [id number] [facility] LAKESHIA Barlow ES B [facility] Jay Gambino MD R THIS REPORT IS [...] + + + +---------+ + + | Christoval-3 Fatty | CAPS, one capsule by | [...] Interrogation | | | | | [place], | (Primary Dx); | | | | | [place] [address] | Presence of | | | | | [phone] | permanent cardiac | | | | [...] Interrogation | | | | | [place], | (Primary Dx); | | | | | [place] [address] | Presence of | | | | | [phone] | permanent cardiac | | | | [...] W | | | | | | [place], | | | | | | [place] [address] | | | | | | [phone] | | | | | | | [...] + + | YESSY JONES | [address] | [place] [address] | | | [facility] | | | | | LABORATORY | | | | + + + + + | [facility] | | | | | [facility] | | | | | LABORATORY [...] + + | [facility] | [address] | [place] [address] | | | [facility] | [...] + + | Glucose | 113 (H)Comment: [place]er | 65 - 99 mg/dL | [...] + + | [facility] | [address] | [place] [address] | | | [facility] | [...]
--- OUTSIDE RECORDS SUMMARY | ~2019-11-16 | XMS | Encounter Summary ---
Demographics + + + | Address | [address] | | | [place] [address] | + + + | Home Phone [...] | [facility] | | | and [...] Team Providers + +------+ + | Care Roller Cleaner Name | Role | Phone | + +------+ + PCP | Unavailable | + +------+ + Encounter Details +--------+ + + + + | Date | Type | Department | Care Team | Description | +--------+ + + + + | 12/16/ | [facility] | [facility] | Naresh Mckeon | | | 2010 | Encounter | MED CTR SLEEP | MD Chaya [address] | | | | | CENTER [address] | [place] | | | | | [place] | [place] [address] | | | | | [address] | [phone] | | | | | [phone] | | | +--------+ + + + [...] Interrogation | | | | | [place], | (Primary Dx); | | | | | [place] [address] | Presence of | | | | | [phone] | permanent cardiac | | | | [...] Interrogation | | | | | [place], | (Primary Dx); | | | | | [place] [address] | Presence of | | | | | [phone] | permanent cardiac | | | | [...] W | | | | | | [place], | | | | | | [place] [address] | | | | | | [phone] | | | | | | | | +--------+ + + + + documented as of this encounter Visit Diagnoses Not on filedocumented in this encounter"
--- OUTSIDE RECORDS SUMMARY | ~2019-11-16 | XMS | Encounter Summary ---
Demographics + + + | Address | [address] | | | [place] [address] | + + + | Home Phone [...] Providers + +------+ + | Care Store Loss Prevention Manager Name | Role | Phone | [...] | | | | | | [place], [place] | (Fax) | | | | | [address] | | | | | | [phone] | | | +--------+ + + + [...] 2019 | Monitor | | [address] | Interrogation | | | | | [place], | (Primary Dx); | | | | | [place] [address] | Presence of | | | | | [phone] | permanent cardiac | | | | [...] Interrogation | | | | | [place], | (Primary Dx); | | | | | [place] [address] | Presence of | | | | | [phone] | permanent cardiac | | | | [...] | | | | | [place], | | | | | | [place] [address] | | | | | | [phone] | | | | | | | | +--------+ + + + + documented as of this encounter Visit Diagnoses Not on filedocumented in this encounter"
--- OUTSIDE RECORDS SUMMARY | ~2019-11-16 | XMS | Encounter Summary ---
Demographics + + + | Address | [address] | | | [place] [address] | + + + | Home Phone [...] Team Providers + +------+ + | Care Beam Carrier Hauler Pusher Name | Role | Phone | [...] + + | 08/31/ | Refill | [facility] | Kirk French | Medication Refill | | 2018 | | [facility] | MD Brea [address] | | | | | [facility] [address] | | | | | [address] | [place] [address] | | | | | [place], [place] | [phone] | | | | | [address] | | | | | | [phone] | | | +--------+--------+ + + + [...] | | 2019 | Monitor | | [place] [facility] | Interrogation | | | | | [place], | (Primary Dx); | | | | | [place] [address] | Presence of | | | | | [phone] | permanent cardiac | | | | [...] 2019 | Monitor | | [facility] | Interrogation | | | | | [place], | (Primary Dx); | | | | | [place] [address] | Presence of | | | | | [phone] | permanent cardiac | | | | [...] W | | | | | | [place], | | | | | | [place] [address] | | | | | | [phone] | | | | | | | | +--------+ + + + + documented as of this encounter Visit Diagnoses Not on filedocumented in this encounter"
--- OUTSIDE RECORDS SUMMARY | ~2019-11-16 | XMS | Encounter Summary ---
Demographics + + + | Address | [address] | | | [place] [address] | + + + | Home Phone [...] + +------+ + | Care Medical Assistant Per Diem Name | Role | Phone | + +------+ + PCP | Unavailable | + +------+ + Encounter Details +--------+ + + + + | Date | Type | Department | Care Team | Description | +--------+ + + + + | 09/29/ | Hospital | [facility] | | | | 1995 | Encounter | MED CTR EMERGENCY | | | | | | [place] [address] | | | | | | [place] | | | | | | [address] | | | | | | [phone] | | | +--------+ + + + [...] Dx); | | | | | [place] [address] | Presence of | | | | | [phone] | permanent cardiac | | | | [...] Dx); | | | | | [place] [address] | Presence of | | | | | [phone] | permanent cardiac | | | | [...] W | | | | | | [place], | | | | | | [place] [address] | | | | | | [phone] | | | | | | | | +--------+ + + + + documented as of this encounter Visit Diagnoses Not on filedocumented in this encounter"
--- OUTSIDE RECORDS SUMMARY | ~2019-11-16 | XMS | Clinical Summary ---
Demographics + + + | Address | [address] | | | [place] [address] | + + + | Home Phone [...] Providers + +------+ + | Care Senior Credit Officer Name | Role | Phone | [...] | | + + + +---------+------+------+-------+ | [place]-3 Fatty | CAPS, one capsule by [...] | | | | | | | [place] coronary | | | | | | | | artery of [place] | | | | | | | [...] + | Overview: Lower back injury (From [facility]) 1980 1984 | + + + [...] + | Coronary artery disease involving [place] coronary artery of | 12/21/2013 | | [place] heart without angina pectoris | | + [...] | | hemostatic band, by Daljit Singletary [facility] on 07/21/2018 | | shows regadenoson [...] attenuation cannot | | completely be ruled out.[facility] 12/25/13, shows non critical coronary | [...] | + + + + + | [facility] care | 06/26/2013 | + + + [...] | | CT Angiogram chest w/constrast 05/26/14 [facility] | + + + + + | [...] arrhythmia performed by Dr. Gambino at [facility] on 01/30/2013. Patient had [...] back in 3 days to | | [place] for an attempt of ablation under general [...] IMPLANTED GENERATOR | | Medtronic DDD ADDR01 [id number] 06/14/09 RV LEAD Medtronic Active | | Bipolar CapSureFix 4076 [id number] 06/14/09 A LEAD Medtronic | | Active Bipolar CapSurFix 4076 [id number] 06/14/09 | + + + +---+ | [...] | Heart Cath, 02/29/2012, LVEF is 65%, [facility], Daljit Singletary, | | [facility] Myocardial Gated Stress Test, 05/25/2009, EF 53 | | % during rest and 52% during stress. [facility], | | [place], [place].Persantine Sestamibi Stress Test, 06/14/2008, LVEF is | | 60%, [facility], Rashadotto SunshinenL 12/25/13, shows noncritical | | [...] Plan: Nonobstructive CAD noted | | on [facility] from 2013, no EKG changes, and [...] | | | | | | unspecified ([facility]); | | | | | | Mixed [...] + + | Mother | | | [place] | | | | (Age | | [...] | 2019 | Monitor | | [address] [place] | Interrogation | | | | | [place], | (Primary Dx); | | | | | [place] [address] | Presence of | | | | | [phone] | permanent cardiac | | | | [...] Dx); | | | | | [place] [address] | Presence of | | | | | [phone] | permanent cardiac | | | | [...] W | | | | | | [place], | | | | | | [place] [address] | | | | | | [phone] | | | | | | | [...] | CAMERON CAMERON | | 09/27/ | [id number] | | - [id number]: | | Ureter | INCORPORATE | | 2020 | / | | Qty: 1 on 04/13/2019 by | | | D | | | /[id number] | | Matthew Uriarte MD at | | | | | | 57 | | [facility] | | | | | | | | [place] | | | | | | | [...] +--------+ +---------+--------+ | MEDICARE | MEDICA | [id number] | 01/21/20 | [phone] | | Medica | | | RE | | 01-Pre | 5 | | re | | | PART A | | sent | | | | | | AND B | | | | | | + +--------+ +--------+ +---------+--------+ | MEDICARE | MEDICA | [id number] | 01/21/20 | [phone] | | Medica | | | RE | | 01-Pre | 5 | | re | | | PART A | | sent | | | | | | AND B | | | | | | + +--------+ +--------+ +---------+--------+ | AARP | AARP | [id number] | | [phone] | | Indemn | | | MDCR | | 016-Pr | 0 | | ity | | | SUPPL | | esent | | | | + +--------+ +--------+ +---------+--------+ | AARP | AARP | [id number] | 11/22/19 | [phone] | | Indemn [...] Person | Self | [birth year] | [address] | | iKrk | cristo/Per | | 1960 | [phone] | [place] | | | [place]xanne | | | 8 (Home) | [address] | + +--------+ +--------+ + + | Moe Sanchez | Person | Self | [birth year] | [address] | | Kirk | cristo/Per | | 1959 | [phone] | [place] | | | roxanne | | | 8 (Home) | [address] | + +--------+ +--------+ + + | Moe Sanchez | Third | Self | [birth year] | [address] | | Kirk | Ray[place] | | 1959 | [phone] | [place] | | | Liabil | | | 3 (Mayer) | [address] | | | ity | | | | | + +--------+ +--------+ + + Advance Directives + + + + + | Type | Date Recorded | Patient | Explanation | | | | Senior Interactive Developer | | + + + + + | Power of | | | | | Driver Messenger | | | | + + + [...]
--- OUTSIDE RECORDS SUMMARY | ~2019-11-16 | XMS | Encounter Summary ---
Demographics + + + | Address | [address] | | | [place] [address] | + + + | Home Phone [...] Providers + +------+ + | Care Sand Analyst Name | Role | Phone | [...] 2015 | | CARDIOLOGY [address] | EXERCISE INSTRUCTOR [address] | | | | | [place], | [place], [place] | | | | | [place] [address] | [address] | | | | | [phone] | | | +--------+--------+ + + + [...] Dx); | | | | | [place] [address] | Presence of | | | | | [phone] | permanent cardiac | | | | [...] Dx); | | | | | [place] [address] | Presence of | | | | | [phone] | permanent cardiac | | | | [...] | | | | | | [place] [address] | | | | | | [phone] | | | | | | | | +--------+ + + + + documented as of this encounter Visit Diagnoses Not on filedocumented in this encounter"
--- OUTSIDE RECORDS SUMMARY | ~2019-11-16 | XMS | Encounter Summary ---
Demographics + + + | Address | [address] | | | [place] [address] | + + + | Home Phone [...] [place] | | | | | | [address] | | | | | | [phone] | | | | | | | [...] 2019 | Monitor | | MD [address] | Interrogation | | | | | [facility] [place], | (Primary Dx); | | | | | [place] [address] | Presence of | | | | | [phone] | permanent cardiac | | | | [...] Interrogation | | | | | [facility] [place], | (Primary Dx); | | | | | [place] [address] | Presence of | | | | | [phone] | permanent cardiac | | | | [...] W | | | | | | [place], | | | | | | [place] [address] | | | | | | [phone] | | | | | | | | +--------+ + + + + documented as of this encounter Visit Diagnoses Not on filedocumented in this encounter"
--- OUTSIDE RECORDS SUMMARY | ~2019-11-16 | XMS | Encounter Summary ---
Demographics + + + | Address | [address] | | | [place] [address] | + + + | Home Phone [...] Team Providers + +------+ + | Care Lacing String Cutter Name | Role | Phone | [...] + + | 09/05/ | Office | [facility] | Geri Angel, | SINUS BRADYCARDIA | | 2012 | Visit | CARDIOLOGY [address] | SUPERVISOR PAPER MACHINE [address] | (Primary Dx); | | | | [address] [place], | [place], [place] | Symptomatic PVCs; | | | | [place] [address] | [address] | Hypertension; | | | | [phone] | | Hyperlipidemia | +--------+---------+ + + [...] and/or ref er you to electrophysiology in [place]. 3. Return in 3 months, or sooner [...] he did not followup with electrophysiology in [place], so he has remained on diltiaze m [...] by mouth Ken y. 30 tablet 6 [place]-3 Fatty Acids (SALMON OIL-1000 PO) Active CAPS, [...] Sanchez Date: September 05, 2013 : 1960 Truss Builder: PARISA Velazquez Device Receiving Room Clerk: Travolver Sense (mV) Impedance (?) Capture (V) Capture (ms) A Lead 4-5.6 417 1.5 0.12 RV Lead >31.36 533 2.0 0.09 LV Lead Battery Impedance (?): 452 Battery Voltage (V): 2.79 PA Interval (ms): 162 AR Interval (ms): 245 VA Conduction: Mode Switch Events: 1 % of time: <0.1 -INDUSTRIAL MAINTENANCE REPAIRER HELPER: <0.1% AP-INDUSTRIAL MAINTENANCE REPAIRER HELPER: 0.1% -VS: 22.7% AP-VS: 77.1% INDUSTRIAL MAINTENANCE REPAIRER HELPER: Magnetic Rate: 85 LINDA: 65 LEAH: [...] to go back in 3 days to [place] for an attempt of ablation under general [...] He is upgraded to class I of [place] [employer] Ass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 There are no [...] he would like to see electrophysiology in [place] rather than [place] as he paulino s family there, if [...] made to ensure accuracy; however, inadvertent computerized management engineer errors may be pre sent. Electronically [...] Interrogation | | | | | [facility] [place], | (Primary Dx); | | | | | [place] [address] | Presence of | | | | | [phone] | permanent cardiac | | | | [...] 2018 | Monitor | | MD [address] | Interrogation | | | | | [place], | (Primary Dx); | | | | | [place] [address] | Presence of | | | | | [phone] | permanent cardiac | | | | [...] W | | | | | | [address] [place], | | | | | | [place] [address] | | | | | | [phone] | | | | | | | [...]
--- OUTSIDE RECORDS SUMMARY | ~2019-11-16 | XMS | Encounter Summary ---
Demographics + + + | Address | [address] | | | [place] [address] | + + + | Home Phone [...] Team Providers + +------+ + | Care Dinker Name | Role | Phone | + [...] | Telephone | [facility] [place] | Schuyler, | Other (not feeling | | 2013 | | [place] [address] | PARISA Vernon [address] | [place]all) | | | | [place], | [place], | | | | | [place] [address] | [place] [address] | | | | | [phone] | [phone] | | | | | | | [...] | Monitor | | MD [address] | Interrogation | | | | | [place], | (Primary Dx); | | | | | [place] [address] | Presence of | | | | | [phone] | permanent cardiac | | | | [...] | Monitor | | MD [address] | Interrogation | | | | | [place], | (Primary Dx); | | | | | [place] [address] | Presence of | | | | | [phone] | permanent cardiac | | | | [...] | | | | | | [place] [address] | | | | | | [phone] | | | | | | | | +--------+ + + + + documented as of this encounter Visit Diagnoses Not on filedocumented in this encounter"
--- OUTSIDE RECORDS SUMMARY | ~2019-11-16 | XMS | Encounter Summary ---
Demographics + + + | Address | [address] | | | [place] [address] | + + + | Home Phone [...] Providers + +------+ + | Care Vocational Training Director Name | Role | Phone | [...] Eva ROUSE | | | | | [place], [place] | [address] | | | | | [address] | [place] [address] | | | | | [phone] | [phone] | | | | | | | [...] | Monitor | | MD [address] | Interrogation | | | | | [place], | (Primary Dx); | | | | | [place] [address] | Presence of | | | | | [phone] | permanent cardiac | | | | [...] 2018 | Monitor | | MD [facility] | Interrogation | | | | | [place], | (Primary Dx); | | | | | [place] [address] | Presence of | | | | | [phone] | permanent cardiac | | | | [...] W | | | | | | [place], | | | | | | [place] [address] | | | | | | [phone] | | | | | | | [...]
--- OUTSIDE RECORDS SUMMARY | ~2019-11-16 | XMS | Encounter Summary ---
Demographics + + + | Address | [address] | | | [place] [address] | + + + | Home Phone [...] Team Providers + +------+ + | Care Tan Room Supervisor Name | Role | Phone | [...] + | 06/26/ | Office | [facility] | Geri Angel, | Coronary artery | | 2015 | Visit | CARDIOLOGY [address] | COAGULATOR [address] | disease involving | | | | [place], | [facility] [place] [facility], [place] | [place] coronary | | | | [place] [address] | [address] | artery without | | | | [phone] | | angina pectoris | | | [...] not occur with exertion. He went to [facility] at the end of for his symptoms [...] it. He is planning to travel to [facility] in the ve ry near future for up to a month due to his bapxrq-la-axm having a significant stroke there MEDICAL, SURGICAL, [...] Preventative health care Coronary artery disease involving [place] coronary artery without angina pectoris Cannabis abuse, [...] by mouth Daily. 30 tabl et 6 [facility] Natural Products (OSTEO BI-FLEX/5-LOXIN ADVANCED PO) [...] 3rd dose, call 911 25 tablet 11 [place]-3 Fatty Acids (SALMON OIL-1000 PO) CAPS, one [...] Daily. to reduce urinary frequenc y Lot #[id number], exp 07/2016 21 capsule 0 Specialty Vitamins [...] INTERROGATION REVIEWED BY: PARISA Velazquez DEVICE IDENTIFICATION: Fishing Gear Mechanic: SomnoMed. Leads: Right atrium and right ventricle (dual [...] ventricular arrhythmia performed by Dr. Gambino at [facility] on 01/30/2013. Patient had spontaneous [...] to go back in 3 days to [place] for an attempt of ablation under general [...] He is in class I-II of [place] Heart Ass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 T here are [...] this chart may have been created with Open English voice recognition software. Occasi onal wrong-word or [...] | Monitor | | MD [address] | Interrogation | | | | | [place], | (Primary Dx); | | | | | [place] [address] | Presence of | | | | | [phone] | permanent cardiac | | | | [...] | Monitor | | MD [address] | Interrogation | | | | | [place], | (Primary Dx); | | | | | [place] [address] | Presence of | | | | | [phone] | permanent cardiac | | | | | | pacemaker; | | | | | | Sinoatrial node | | | | | | dysfunction (HCC) | | | | | | with symptomatic | | | | | | bradycardia | +--------+ + + + + | 01/01/ | Office | Cardiology | [place], | | | 2020 | Visit | | PARISA Vernon [address] | | | | | | [place], | | | | | | [place] [address] | | | | | | [phone] | | | | | | | [...] PARISA Velazquez DEVICE IDENTIFICATION: | | | Fishing Gear Mechanic: TribaLearningtronic. Leads: Right atrium and right | | [...] + + | Coronary artery disease involving [place] coronary artery without angina pectoris - | | Primary | + + | SINUS BRADYCARDIA Sinoatrial node dysfunction | + + | Essential hypertension Unspecified essential hypertension | + + | Hyperlipidemia Other and unspecified hyperlipidemia | + + | Symptomatic PVCs Other premature beats | + + documented in this encounter
--- OUTSIDE RECORDS SUMMARY | ~2019-11-16 | XMS | Encounter Summary ---
Demographics + + + | Address | [address] | | | [place] [address] | + + + | Home Phone [...] Providers + +------+ + | Care Finger Grip Machine Operator Name | Role | Phone [...] | 07/30/ | Telephone | [facility] [place] [facility] | Michael Amanda, | Results | | 2013 | | [facility] [place] | DO [address] | | | | | [address] | [place] | | | | | [place] | [address] | | | | | [address] | | | | | | [phone] | | | +--------+ + + + [...] Interrogation | | | | | [facility], | (Primary Dx); | | | | | [place] [address] | Presence of | | | | | [phone] | permanent cardiac | | | | [...] | [address] [facility] | Interrogation | | | | | [place], | (Primary Dx); | | | | | [place] [address] | Presence of | | | | | [phone] | permanent cardiac | | | | [...] W | | | | | | [place], | | | | | | [place] [address] | | | | | | [phone] | | | | | | | | +--------+ + + + + documented as of this encounter Visit Diagnoses Not on filedocumented in this encounter"
--- OUTSIDE RECORDS SUMMARY | ~2019-11-16 | XMS | Encounter Summary ---
Demographics + + + | Address | [address] | | | [place] [address] | + + + | Home Phone [...] Providers + +------+ + | Care Casino Duty Manager Name | Role | Phone | [...] | on | GASTROENTEROLOGY | [address], [place] | | | | | [address] [place] | [address] [place], [place] | | | | | [address] [place], [place] | [address] | | | | | [address] | | | | | | [phone] | | | +--------+ + + + [...] Interrogation | | | | | [facility], | (Primary Dx); | | | | | [place] [address] | Presence of | | | | | [phone] | permanent cardiac | | | | [...] 2018 | Monitor | | [address] | Interrogation | | | | | [place], | (Primary Dx); | | | | | [place] [address] | Presence of | | | | | [phone] | permanent cardiac | | | | [...] | | | | | | [place] [address] | | | | | | [phone] | | | | | | | | +--------+ + + + + documented as of this encounter Visit Diagnoses Not on filedocumented in this encounter"
--- OUTSIDE RECORDS SUMMARY | ~2019-11-16 | XMS | Encounter Summary ---
Demographics + + + | Address | [address] | | | [place] [address] | + + + | Home Phone [...] Team Providers + +------+ + | Care Miniature Set Builder Name | Role | Phone | + +------+ + PCP | Unavailable | + +------+ + Encounter Details +--------+ + + + + | Date | Type | Department | Care Team | Description | +--------+ + + + + | 01/15/ | [facility] | [facility] | Emmanuel Daniel MD | | | 1994 | Encounter | MED CTR GENERIC OP | [address] | | | | | CONV DEPT [address] | [address] [place] | | | | | [place], | [address] | | | | | [place] [address] | | | | | | [phone] | | | +--------+ + + + [...] Interrogation | | | | | [place], | (Primary Dx); | | | | | [place] [address] | Presence of | | | | | [phone] | permanent cardiac | | | | [...] Interrogation | | | | | [place], | (Primary Dx); | | | | | [place] [address] | Presence of | | | | | [phone] | permanent cardiac | | | | [...] | | | | | | [place], | | | | | | [place] [address] | | | | | | [phone] | | | | | | | | +--------+ + + + + documented as of this encounter Visit Diagnoses Not on filedocumented in this encounter"
--- OUTSIDE RECORDS SUMMARY | ~2019-11-16 | XMS | Encounter Summary ---
Demographics + + + | Address | [address] | | | [place] [address] | + + + | Home Phone [...] Team Providers + +------+ + | Care Treasury Agent Name | Role | Phone | [...] | Palpitations | [address] | | | | | Procedures | [address] | [address] [place] | | | | | ECHO | [place], | [place], [place] | | | | | Complete | [place] [address] | [address] | | | | | | Phone: | Phone: | | | | | | [phone] | [phone] | | | | | | Fax: | Fax: | | | | | | [phone] | [phone] | +--------+--------+ + + + + Reason [...] + + | 12/21/ | Office | [facility] | Daljit Singletary, | Palpitations | | 2012 | Visit | CARDIOLOGY [address] | [address] | (Primary Dx); PVC | | | | [address] [place], | [place], | (premature | | | | [place] [address] | [place] [address] | ventricular | | | | [phone] | [phone] | contraction) | | | | | [...] himself to the emergency department at [facility] in [place], [place]. Today, patient is apprehensive of the [...] tablet Take 1,000 mg by mouth Daily. [place]-3 Fatty Acids (SALMON OIL-1000 PO) CAPS, one [...] tablet Take 1,000 mg by mouth Daily. [place]-3 Fatty Acids (SALMON OIL-1000 PO) CAPS, one [...] Gay Date: December 21, 2012 : 1960 Hydrogeology Professor: PARISA Velazquez Device Quiller Runner: Dappertronic Sense (mV) Impedance (?) Capture (V) Capture (ms) A Lead 4-5.6 423 1.5 0.09 RV Lead >31.36 539 2.0 0.09 LV Lead Battery Impedance (?): 301 Battery Voltage (V): 2.8 SC Interval (ms): 140 AR Interval (ms): 210 VA Conduction: Mode Switch Events: N/A % of time: -RAVELER: 0.6 AP-RAVELER: 1.3 -VS: 23.9 AP-VS: 74.2 RAVELER: Magnetic Rate: 85 LINDA: 65 ELAH: Current Underlying Rhythm: Sinus rhythm with rate [...] to the emerge ncy department at [facility] in [place], [place]. EKG showed normal sinus rhythm with [...] I will d iscuss this option with art specialist in [place]. 7. Followup in 2-4 weeks. Portions of this report were transcribed using voice recognition software. Every effort wa s made to ensure accuracy; however, inadvertent computerized stove polisher errors may be pre sent. documented in this encounter Plan of Treatment +--------+ + + + + | Date | Type | Specialty | Care Team | Description | +--------+ + + + + | 11/20/ | Implant | Cardiology | Daljit Singletary, | Remote Device | | 2019 | Monitor | | [address] | Interrogation | | | | | [place], | (Primary Dx); | | | | | [place] [address] | Presence of | | | | | [phone] | permanent cardiac | | | | [...] Dx); | | | | | [place] [address] | Presence of | | | | | [phone] | permanent cardiac | | | | [...] W | | | | | | [place], | | | | | | [place] [address] | | | | | | [phone] | | | | | | | | +--------+ + + + + documented as of this encounter Results ECHO Complete (12/30/2012 4:08 PM PST) + + | Specimen | + + | | + + + + + | Narrative | Performed At | + + + | [facility] | [facility] | | Department [address] [place] [address] | [facility] | | [ rep [address]] [ rep [facility] | | [facility]] Signed | - IMAGING | | | | | Patient Name: MOE GAY Jaimee | | | Physician: MIGUELINA : 1960 Age: 52 Sex: M Unit | | | #: [id number] Exam Date: 12/30/12 Location: | | | [facility] Report #: [id number] Page: | | | %(RAD)RES..mtdd.print.filter("pg") of %(RAD) | | | RES..mtdd.print.filter("tpg") | | | | | | Accession Number: [id number] | | | E C H O C A R D I O G R A P H Y R E P O R T | | | HEIGHT: 76" WEIGHT: 270# | | | BUILDING DRAFTER: JAMEEL REFERRING DR: TIMMY DRAKE DR: | [...] | | | Transcribed Date/Time: 12/30/2012 16:34 Minister Helper: | | | <<Signature on File>> | | | Daljit | | | MD Gemini [facility]01/02/13 0935 <Electronically signed by | | | Daljit Singletary MD, [facility], FACP, FASE, FASNC> Daljit | | | MD Gemini [facility] FAS 12/30/12 8474 Minister Helper: Jessica | | | Ymjolgiwdxtsc69/08/13 1634 Daljit Singletary MD [facility] | | | FASE | | + + + + + + + + | Performing | Address | City/State/Zipcode | Phone Number | | Organization | | | | + + + + + | [facility] | [address] | [place] | [phone] | | [facility] | | [address] | | | - IMAGING | | | | + + + + + documented in this encounter Visit Diagnoses + + | Diagnosis | + + | Palpitations - Primary | + + | PVC (premature ventricular contraction) Other premature beats | + + documented in this encounter
--- OUTSIDE RECORDS SUMMARY | ~2019-11-16 | XMS | Encounter Summary ---
Demographics + + + | Address | [address] | | | [place] [address] | + + + | Home Phone [...] Providers + +------+ + | Care Foam Fabricator Name | Role | Phone | + +------+ + | Kirk French MD | PCP | | + +------+ + Encounter Details +--------+ + + + + | Date | Type | Department | Care Team | Description | +--------+ + + + + | 01/25/ | Hospital | [facility] | Daljit Singletary, | Stable angina | | 2019 | Encounter | MED CTR CV INTRA OP | MD [address] | pectoris (HCC) | | | | [address] | [address] [place], | | | | | [place] | [place] [address] | | | | | [address] | [phone] | | | | | [phone] | | | +--------+ + + + [...] as a collagen plugis used on the melrose triny site to close the site, you [...] by your healthcare provider Date Last Reviewed: 09/22/201619997593-5646 [employer]. [address] [place] [address]. All righ ts reserved. This information is [...] Interrogation | | | | | [place], | (Primary Dx); | | | | | [place] [address] | Presence of | | | | | [phone] | permanent cardiac | | | | [...] Interrogation | | | | | [place], | (Primary Dx); | | | | | [place] [address] | Presence of | | | | | [phone] | permanent cardiac | | | | | | pacemaker; | | | | | | Sinoatrial node | | | | | | dysfunction (HCC) | | | | | | with symptomatic | | | | | | bradycardia | +--------+ + + + + | 01/01/ | Office | Cardiology | [place], | | | 2019 | Visit | | PARISA Vernon [address] | | | | | | [place], | | | | | | [place] [address] | | | | | | [phone] | | | | | | | [...] (1960) MEDICAL RECORD NUMBER: | | | [id number] OF PROCEDURE: 01/25/2019 SUPERINTENDENT SALES: Daljit | | | MD Gemini PROCEDURES [...] Sanchez, (1960) | | OF PROCEDURE: 01/25/2019PRIMARY ELECTRONIC INSTALLER: Daljit Singletary MD PROCEDURES | | PERFORMED:Coronary [...]
--- OUTSIDE RECORDS SUMMARY | ~2019-11-16 | XMS | Encounter Summary ---
Demographics + + + | Address | [address] | | | [place] [address] | + + + | Home Phone [...] Providers + +------+ + | Care Shop Repairer Name | Role | Phone | [...] | Aneurysmal | [place], | [address] [place] | | | | | dilatation | PARISA Vernon | [place], | | | | | ([facility]) | [address] | [place] | | | | | Procedures | [place] | [address] | | | | | ECHO | [place], | Phone: | | | | | Complete | [place] | [phone] | | | | | | [address] | Fax: | | | | | | Phone: | [phone] | | | | | | [phone] | | | | | | | Fax: | | | | | | | [phone] | | +--------+--------+ + + + + [...] | | | | | Aneurysmal | [place], | [address] | | | | | dilatation | PARISA Vernon | [place], | | | | | ([facility]) | [address] | [place] | | | | | Procedures | [place] | [address] | | | | | ECHO | [place], | Phone: | | | | | Complete | [place] | [phone] | | | | | | [address] | Fax: | | | | | | Phone: | [phone] | | | | | | [phone] | | | | | | | Fax: | | | | | | | [phone] | | +--------+--------+ + + + + Encounter Details +--------+ + + + + | Date | Type | Department | Care Team | Description | +--------+ + + + + | 11/16/ | Hospital | [facility] | Silvia, | Aneurysmal | | 2017 | Encounter | MED CTR ECHO [address] | [place], [facility] [address] | dilatation (HCC) | | | | [place] | [place], | | | | | [place], [place] [address] | [place] [address] | | | | | [phone] | [phone] | | | | | | | [...] + + + +---------+ + + | [place]-3 Fatty | CAPS, one capsule by | [...] Dx); | | | | | [place] [address] | Presence of | | | | | [phone] | permanent cardiac | | | | [...] 2018 | Monitor | | MD [address] [place] | Interrogation | | | | | 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33 ml | | EF Xjthxnqic75% Left Ventricle Diastolic Dimension: 5.12 cm Systolic [...] LA Volume: 46.33 ml | | EF Lazditfvd56% | | | | Left Ventricle | [...]
--- OUTSIDE RECORDS SUMMARY | ~2019-11-16 | XMS | Encounter Summary ---
Demographics + + + | Address | [address] | | | [place] [address] | + + + | Home Phone [...] + +------+ + | Care Sales Representative Advertising Name | Role | Phone | + +------+ + PCP | Unavailable | + +------+ + Encounter Details +--------+ + + + + | Date | Type | Department | Care Team | Description | +--------+ + + + + | 05/13/ | Hospital | [facility] | | | | 2007 | Encounter | MED CTR EMERGENCY | | | | | | [place] [address] | | | | | | [place] | | | | | | [address] | | | | | | [phone] | | | +--------+ + + + [...] Dx); | | | | | [place] [address] | Presence of | | | | | [phone] | permanent cardiac | | | | [...] Interrogation | | | | | [place], | (Primary Dx); | | | | | [place] [address] | Presence of | | | | | [phone] | permanent cardiac | | | | [...] W | | | | | | [place], | | | | | | [place] [address] | | | | | | [phone] | | | | | | | | +--------+ + + + + documented as of this encounter Visit Diagnoses Not on filedocumented in this encounter"
--- OUTSIDE RECORDS SUMMARY | ~2019-11-16 | XMS | Encounter Summary ---
Demographics + + + | Address | [address] | | | [place] [address] | + + + | Home Phone [...] Provider Unknown | | | | | [place], [place] | [phone] | | | | | [address] | | | | | | [phone] | | | +--------+ + + + [...] + + + +---------+ + + | [place]-3 Fatty | CAPS, one capsule by | [...] | | | | | | | #[id number], exp 07/2016 | | | | | [...] | Interrogation | | | | | [facility] | (Primary Dx); | | | | | [place] [address] | Presence of | | | | | [phone] | permanent cardiac | | | | [...] | 2018 | Monitor | | [address] [place] | Interrogation | | | | | [place], | (Primary Dx); | | | | | [place] [address] | Presence of | | | | | [phone] | permanent cardiac | | | | [...] | 2019 | Visit | | PARISA Vernno [address] | | | | | | [place], | | | | | | [place] [address] | | | | | | [phone] | | | | | | | [...]
--- OUTSIDE RECORDS SUMMARY | ~2019-11-16 | XMS | Encounter Summary ---
Demographics + + + | Address | [address] | | | [place] [address] | + + + | Home Phone [...] Providers + +------+ + | Care Personal Property Assessor Name | Role | Phone | [...] [address] | | | | | | [place], [place] | (Fax) | | | | | [address] | | | | | | [phone] | | | +--------+ + + + [...] 2019 | Monitor | | [address] | Interrogation | | | | | [facility] [place], | (Primary Dx); | | | | | [place] [address] | Presence of | | | | | [phone] | permanent cardiac | | | | [...] Interrogation | | | | | [place], | (Primary Dx); | | | | | [place] [address] | Presence of | | | | | [phone] | permanent cardiac | | | | [...] | | | | | [place], | | | | | | [place] [address] | | | | | | [phone] | | | | | | | | +--------+ + + + + documented as of this encounter Visit Diagnoses Not on filedocumented in this encounter"
--- OUTSIDE RECORDS SUMMARY | ~2019-11-16 | XMS | Encounter Summary ---
Demographics + + + | Address | [address] | | | [place] [address] | + + + | Home Phone [...] Team Providers + +------+ + | Care Geologist Petroleum Name | Role | Phone | + [...] [place], [place] | | | | | [place] | | [address] Phone: | | | | | CYSTO/URETER | | [phone] | | | | | O | | Fax: | | | | | W/LITHOTRIPS | | [phone] | | | | | Y &INDWELL [...] + + | 04/13/ | Hospital | [facility] | Matthew Uriarte | Preoperative | | 2019 | Encounter | MED CTR OR INTRA OP | Dahl, MD [address] | clearance (Primary | | | | [address] | [place], [place] | Dx); Left ureteral | | | | [place], [place] | [address] | calculus; Kidney | | | | [address] | | stones | | | | [phone] | | | +--------+ + + + [...] Care Everywhere.Kidney Stones, Treating: Ureteroscopic Stone Removal (Monegasque)Stents, Ureteral (Monegasque)documented in this encounter Medications at Time of [...] + + + +---------+ + + | Brandon-3 Fatty | CAPS, one capsule by | [...] Interrogation | | | | | [facility], | (Primary Dx); | | | | | [place] [address] | Presence of | | | | | [phone] | permanent cardiac | | | | [...] 2018 | Monitor | | [address] | Interrogation | | | | | [place], | (Primary Dx); | | | | | [place] [address] | Presence of | | | | | [phone] | permanent cardiac | | | | [...] W | | | | | | [place], | | | | | | [place] [address] | | | | | | [phone] | | | | | | | [...] [facility] | | | | | | at:[phone]. | | | | + + + [...] + | Performed at: 01 - [address] | REFERENCE LAB | | RAUL Emmanuel [id number] Life Enrichment Director: Yeny Rios MD, Phone: | ARSH - KINA | | [phone] | | + + + + + + + + | Performing | Address | City/State/Zipcode | Phone Number | | Organization | | | | + + + + + | REFERENCE LAB | [address] | [place] [address] | [phone] | | [facility] | Drive [...] | | Direct | | mg/dl | MICHELLE | | | | | [...] [address] | [place] | [phone] | | [facility] | | [address] | | | - LABORATORY | | [...] nRBC | | K/uL | STJuan Diego MARTINEZ [...] + | [facility] | [address] | [place] | [phone] | | [facility] | | [address] | | | - LABORATORY | | [...] Time | | seconds | STJuan Diego MARTINEZ | | | [...] [address] | [place] | [phone] | | [facility] | | [address] | | | - LABORATORY | | [...] + | [facility] | [address] | [place] | [phone] | | [facility] | | [address] | | | - LABORATORY | | [...] not | >60Comment: GLOMERULAR | >=60 | [facility] | | | | FILTRATION | mL/min/1.73m2 | Juan Diego MARTINEZ | | | NEPALESE | RATE,ESTIMATED | | MEDICAL | | | | mL/min/[id number] than | | CENTER - | | [...] ST. | [address] | [place] | [phone] | | [facility] | | [address] | | | - LABORATORY | | [...] if SBP <90., Starting | | | [facility] 04/13/19 at 0917, Hold if HR > | | | 100. Maximum total dose 20mg., | | | Recovery/Phase I | | + +---+ | | | + +---+ | HYDROmorphone (DILAUDID) | | | injection 0.2-0.4 mg 0.2-0.4 mg, | | | Intravenous, EVERY 1 HOUR PRN, | | | Pain, Starting [facility] 04/13/19 at | | | 1046, If [...] | | | | | | | [id number] use of at least | | | [...]
--- OUTSIDE RECORDS SUMMARY | ~2019-11-16 | XMS | Clinical Summary ---
Demographics + + + | Address | [address] [place] [address] | | | [place] [address] | + + + | Home Phone [...] [place] | | | | | [address] | | + + + + + Care Team Providers + +------+ + | Care Production Manager Name | Role | Phone | + +------+ + | Darion Holden DO | PCP | | + +------+ + Source Comments IVETTE is fully live on both EpicCare Ambulatory and EpicCare InPatient.[facility] Allergies + + + + + [...] | oral tablet | | | | 320 | | e | | | | | | 15 | | | + + + +---------+------+------+-------+ | sertraline 100 mg | Take 200 mg by | | 0 | 02/2 | 2 | Activ | | oral tablet | mouth. | | | 05/11 | 05/11 | e | | | | | | 19 | 20 | | + + + +---------+------+------+-------+ | valACYclovir 1 g | Take 1,000 mg by | | 0 | 01/0 | | Activ | | oral tablet | mouth. | | | 07/11 | | e [...] + + | 11/01/ | Telephone | Gastroenterology | Bridgette Rios, | Other | | 2019 | | | MD | | +--------+ + + + + | 10/26/ | Telephone | Gastroenterology | Bridgette Rios, | Refill Request | | 2018 | | | MD | | +--------+ + + + + | 10/23/ | Telephone | Gastroenterology | Bridgette Rios, | | | 2018 | | | MD | | +--------+ + + + + | 10/18/ | Telephone | Gastroenterology | Bridgette Rios, | Other (stool tests | | 2018 | | | MD | normal, recommend | | | | | | hyoscyamine) | +--------+ + + + + | 10/17/ | Abstract | Gastroenterology | Bridgette Rios, | Medical Records | | 2018 | | | | Review | +--------+ + + + + | 10/11/ | Telephone | Gastroenterology | Bridgette Rios, | Other (stool lab | | 2018 | | | MD | results) | +--------+ + + + + | 10/04/ | Telephone | Gastroenterology | Bridgette Rios, | Diarrhea (ongoing | | 2018 | | | MD | diarrhea; sent to | | | | | | ED) | +--------+ + + + + | 10/03/ | Telephone | Gastroenterology | Bridgette Rios, | Lab Order | | 2018 | | | MD | | +--------+ + + + + | 09/28/ | Office | Gastroenterology | Bridgette Rios, | Chronic diarrhea | | 2018 | Visit | | MD | (Primary Dx); | | | | | | Abdominal cramping; | | | | | | Unintentional [...] | | | | | | | [address] | | + +--------+ +--------+ + +--------+ | [employer] | AARP | xxxxxxxxxx | 11/22/19 | [phone] | [address] | Indemn | | RETIRED PEOPLE | | | 10-Pre | 9 | [id number] | ity | | | | | sent | | [place] | | | | | | | | [address] | | + +--------+ +--------+ + +--------+ + +--------+ +--------+ + + | Guarantor Name | Accoun | Relation to | Date | Phone | Billing Address | | | t Type | Patient | of | | | | | | | | | | + +--------+ +--------+ + + | Moe Sanchez | Person | Self | [birth year] | [address] | | | al/Per | | 1959 | [phone] | [place] | | | roxanne | | | 8 (Home) | [address] | + +--------+ +--------+ + + [place] Directives + + + + + | Type | Date Recorded | Patient | Explanation | | | | Manager Title | | + + + + + | [place] | | | | | Directives and | | | | | Living Will | | | | + + + + + | Power of | | | | | Network Systems Engineer | | | | + + + + +
--- OUTSIDE RECORDS SUMMARY | ~2019-11-16 | XMS | Encounter Summary ---
Demographics + + + | Address | [address] | | | [place] [address] | + + + | Home Phone [...] Team Providers + +------+ + | Care Inclusion Internship Name | Role | Phone | [...] [address] | | | | | [place], | [place], | | | | | [place] [address] | [place] [address] | | | | | [phone] | [phone] | | | | | | | [...] | Monitor | | MD [address] | Interrogation | | | | | [place], | (Primary Dx); | | | | | [place] [address] | Presence of | | | | | [phone] | permanent cardiac | | | | [...] 2018 | Monitor | | MD [facility] | Interrogation | | | | | [place], | (Primary Dx); | | | | | [place] [address] | Presence of | | | | | [phone] | permanent cardiac | | | | [...] W | | | | | | [place], | | | | | | [place] [address] | | | | | | [phone] | | | | | | | [...] Resulting Agency Comment | + + | [facility] | + + + +---------+ [...] [address] | [place] | [phone] | | [facility] | | [address] | | | - LABORATORY | | [...]
--- OUTSIDE RECORDS SUMMARY | ~2019-11-16 | XMS | Encounter Summary ---
Demographics + + + | Address | [address] | | | [place] [address] | + + + | Home Phone [...] Providers + +------+ + | Care Syrup Machine Laborer Name | Role | Phone | [...] 2012 | | CARDIOLOGY [address] | WHITE SPOOLER [address] | | | | | [place], | [place], [place] | | | | | [place] [address] | [address] | | | | | [phone] | | | +--------+ + + + [...] | Monitor | | MD [address] | Interrogation | | | | | [facility] [place], | (Primary Dx); | | | | | [place] [address] | Presence of | | | | | [phone] | permanent cardiac | | | | [...] Interrogation | | | | | [place], | (Primary Dx); | | | | | [place] [address] | Presence of | | | | | [phone] | permanent cardiac | | | | [...] | | | | | [place], | | | | | | [place] [address] | | | | | | [phone] | | | | | | | [...] St | CH[place]STOP[place] Nguyen | | | [facility] | | [address] | | | - LABORATORY | | [...] | | | LAB | | | Armenian, | | | | | | External [...]
--- OUTSIDE RECORDS SUMMARY | ~2019-11-16 | XMS | Encounter Summary ---
Demographics + + + | Address | [address] | | | [place] [address] | + + + | Home Phone [...] Team Providers + +------+ + | Care Garnett Machine Operator Name | Role | Phone [...] | RN | | | | | [place], | | | | | | [place] [address] | | | | | | [phone] | | | +--------+ + + + [...] Interrogation | | | | | [place], | (Primary Dx); | | | | | [place] [address] | Presence of | | | | | [phone] | permanent cardiac | | | | [...] Interrogation | | | | | [place], | (Primary Dx); | | | | | [place] [address] | Presence of | | | | | [phone] | permanent cardiac | | | | [...] W | | | | | | [place], | | | | | | [place] [address] | | | | | | [phone] | | | | | | | | +--------+ + + + + documented as of this encounter Visit Diagnoses Not on filedocumented in this encounter"
--- OUTSIDE RECORDS SUMMARY | ~2019-11-16 | XMS | Encounter Summary ---
Demographics + + + | Address | [address] | | | [place] [address] | + + + | Home Phone [...] Providers + +------+ + | Care Button Maker And Installer Name | Role | [...] Provider Unknown | | | | | [place], [place] | [phone] | | | | | [address] | | | | | | [phone] | | | +--------+ + + + [...] + + + +---------+ + + | [place]-3 Fatty | CAPS, one capsule by | [...] | Monitor | | MD [address] [place] | Interrogation | | | | | [place], | (Primary Dx); | | | | | [place] [address] | Presence of | | | | | [phone] | permanent cardiac | | | | [...] | Monitor | | MD [address] [place] | Interrogation | | | | | [place], | (Primary Dx); | | | | | [place] [address] | Presence of | | | | | [phone] | permanent cardiac | | | | [...] | | | | | | [place], | | | | | | [place] [address] | | | | | | [phone] | | | | | | | [...]
--- OUTSIDE RECORDS SUMMARY | ~2019-11-16 | XMS | Encounter Summary ---
Demographics + + + | Address | [address] | | | [place] [address] | + + + | Home Phone [...] Providers + +------+ + | Care Trial Examiner Name | Role | Phone | [...] Eva [address]SE | | | | | [place], [place] | [address] | | | | | [address] | [place] [address] | | | | | [phone] | [phone] | | | | | | | [...] | Monitor | | MD [address] [place] | Interrogation | | | | | [place], | (Primary Dx); | | | | | [place] [address] | Presence of | | | | | [phone] | permanent cardiac | | | | [...] MD [facility] | Interrogation | | | | | [place], | (Primary Dx); | | | | | [place] [address] | Presence of | | | | | [phone] | permanent cardiac | | | | [...] W | | | | | | [place], | | | | | | [place] [address] | | | | | | [phone] | | | | | | | [...] | | | Basophils | performed at [facility];[address] | 10*3/uL | LAB | | | | [address] | | | | | | [address];[place] [address] | | | | + + + [...] EXTERNAL | | | | performed at [facility];[address] | u[iU]/mL | LAB | | | | Sun | | | | | | [address];[place] [address] | | | | + + + [...] | | | | | | at [facility];[address] [facility] | | | | | | [facility];[place], [place] | | | | | | [address] | | | | + + + [...]
--- OUTSIDE RECORDS SUMMARY | ~2019-11-16 | XMS | Encounter Summary ---
Demographics + + + | Address | [address] | | | [place] [address] | + + + | Home Phone [...] Providers + +------+ + | Care Commercial Housekeeper Name | Role | Phone | + [...] + + | 07/13/ | Telephone | [facility] | Kirk French | Referral Question | | 2019 | | [facility] | MD Bre[address] | | | | | [facility] [address] | [address] | | | | | [address] | [place] [address] | | | | | [place], [place] | [phone] | | | | | [address] | | | | | | [phone] | | | +--------+ + + + [...] | Interrogation | | | | | [facility] | (Primary Dx); | | | | | [place] [address] | Presence of | | | | | [phone] | permanent cardiac | | | | [...] Interrogation | | | | | [facility] [place], | (Primary Dx); | | | | | [place] [address] | Presence of | | | | | [phone] | permanent cardiac | | | | [...] W | | | | | | [place], | | | | | | [place] [address] | | | | | | [phone] | | | | | | | | +--------+ + + + + documented as of this encounter Visit Diagnoses Not on filedocumented in this encounter"
--- OUTSIDE RECORDS SUMMARY | ~2019-11-16 | XMS | Encounter Summary ---
Demographics + + + | Address | [address] | | | [place] [address] | + + + | Home Phone [...] Providers + +------+ + | Care Senior Analyst Name | Role | Phone [...] 2018 | | GASTROENTEROLOGY | [address], [place] | about prep for | | | | [address] [place] | [address] [place], [place] | procedure) | | | | [address] [place], [place] | [address] | | | | | [address] | | | | | | [phone] | | | +--------+ + + + [...] Dx); | | | | | [place] [address] | Presence of | | | | | [phone] | permanent cardiac | | | | [...] Dx); | | | | | [place] [address] | Presence of | | | | | [phone] | permanent cardiac | | | | [...] | | | | | | [place] [address] | | | | | | [phone] | | | | | | | | +--------+ + + + + documented as of this encounter Visit Diagnoses Not on filedocumented in this encounter"
--- OUTSIDE RECORDS SUMMARY | ~2019-11-16 | XMS | Encounter Summary ---
Demographics + + + | Address | [address] | | | [place] [address] | + + + | Home Phone [...] Team Providers + +------+ + | Care Fabrication Inspector Name | Role | Phone | + +------+ + | Kirk French MD | PCP | | + +------+ + Encounter Details +--------+ + + + + | Date | Type | Department | Care Team | Description | +--------+ + + + + | 04/07/ | Hospital | [facility] | Pia Akhtar | Spinal stenosis of | | 2016 | Encounter | MED CTR XRAY [address] | MD [address] | lumbar region | | | | [place] | [address] | | | | | [place] [address] | [place] [address] | | | | | [phone] | [phone] | | | | | | | [...] + + + +---------+ + + | [place]-3 Fatty | CAPS, one capsule by | [...] Interrogation | | | | | [place], | (Primary Dx); | | | | | [place] [address] | Presence of | | | | | [phone] | permanent cardiac | | | | [...] 2018 | Monitor | | [address] | Interrogation | | | | | [place], | (Primary Dx); | | | | | [place] [address] | Presence of | | | | | [phone] | permanent cardiac | | | | [...] | | | | | | [place], | | | | | | [place] [address] | | | | | | [phone] | | | | | | | [...]
--- OUTSIDE RECORDS SUMMARY | ~2019-11-16 | XMS | Encounter Summary ---
Demographics + + + | Address | [address] | | | [place] [address] | + + + | Home Phone [...] Team Providers + +------+ + | Care Filler Feeder Name | Role | Phone | [...] 2012 | | CARDIOLOGY [address] | PROCEDURE TECH [address] | faxed) | | | | [place], | [place] [facility], [place] | | | | | [place] [address] | [address] | | | | | [phone] | | | +--------+ + + + [...] Gemini Rashadotto, | Remote Device | | 2018 | Monitor | | MD [address] | Interrogation | | | | | [place], | (Primary Dx); | | | | | [place] [address] | Presence of | | | | | [phone] | permanent cardiac | | | | [...] | Monitor | | MD [address] | Interrogation | | | | | [place], | (Primary Dx); | | | | | [place] [address] | Presence of | | | | | [phone] | permanent cardiac | | | | [...] | | | | | | [place] [address] | | | | | | [phone] | | | | | | | | +--------+ + + + + documented as of this encounter Visit Diagnoses Not on filedocumented in this encounter"
--- OUTSIDE RECORDS SUMMARY | ~2019-11-16 | XMS | Encounter Summary ---
Demographics + + + | Address | [address] | | | [place] [address] | + + + | Home Phone [...] + +------+ + | Care Business Process Architect Name | Role | Phone | + +------+ + PCP | Unavailable | + +------+ + Encounter Details +--------+ + + + + | Date | Type | Department | Care Team | Description | +--------+ + + + + | 01/14/ | Hospital | [facility] | Deburi, | BACKACHE NOS | | 2004 | Encounter | MEDICAL CENTER | MD [address] | | | | | CLINICAL DECISION | S[place]AN [place]ZO | | | | | [address] | [place] [address] | | | | | [place], [place] | [phone] | | | | | [address] | | | | | | [phone] | | | +--------+ + + + [...] | | 2019 | Monitor | | [place] [facility] | Interrogation | | | | | [place], | (Primary Dx); | | | | | [place] [address] | Presence of | | | | | [phone] | permanent cardiac | | | | [...] | | 2018 | Monitor | | [place] [facility] | Interrogation | | | | | [place], | (Primary Dx); | | | | | [place] [address] | Presence of | | | | | [phone] | permanent cardiac | | | | [...] W | | | | | | [place], | | | | | | [place] [address] | | | | | | [phone] | | | | | | | | +--------+ + + + + documented as of this encounter Visit Diagnoses + + | Diagnosis | + + | Backache, unspecified | + + documented in this encounter"
--- OUTSIDE RECORDS SUMMARY | ~2019-11-16 | XMS | Encounter Summary ---
Demographics + + + | Address | [address] | | | [place] [address] | + + + | Home Phone [...] Team Providers + +------+ + | Care Cancer Genetic Counselor Name | Role | Phone [...] [address] | | | | | | [place], [place] | (Fax) | | | | | [address] | | | | | | [phone] | | | +--------+ + + + [...] | Monitor | | [address] [place] | Interrogation | | | | | [place], | (Primary Dx); | | | | | [place] [address] | Presence of | | | | | [phone] | permanent cardiac | | | | [...] Dx); | | | | | [place] [address] | Presence of | | | | | [phone] | permanent cardiac | | | | [...] | | | | | | [place], | | | | | | [place] [address] | | | | | | [phone] | | | | | | | | +--------+ + + + + documented as of this encounter Visit Diagnoses Not on filedocumented in this encounter"
--- OUTSIDE RECORDS SUMMARY | ~2019-11-16 | XMS | Encounter Summary ---
Demographics + + + | Address | [address] | | | [place] [address] | + + + | Home Phone [...] Team Providers + +------+ + | Care Hearing Aid Repairer Name | Role | Phone | [...] | Specialty | Gastroenterol | Diagnoses | Nam | RAFAELSU | | | Services | ogy | | Emmanuel Fitzpatrick MD | GASTROENTEROL | | | Required | | Incontinence | [address] | [address] | | | | | of feces, | [place], [place] | [address] | | | | | unspecified | [address] [place] | [place], [place] | | | | | fecal | [place], [place] | [address] | | | | | incontinence | [address] | Phone: | | | | | type | Phone: | [phone] | | | | | Diarrhea, | [phone] | Fax: | | | | | unspecified | Fax: | [phone] | | | | | type | [phone] | | +--------+ + + + + [...] 2018 | | GASTROENTEROLOGY | [address] [place], [place] | | | | | [address] [place] | [address] [place], [place] | | | | | [address] [place], [place] | [address] | | | | | [address] | | | | | | [phone] | | | +--------+ + + + [...] Interrogation | | | | | [facility], | (Primary Dx); | | | | | [place] [address] | Presence of | | | | | [phone] | permanent cardiac | | | | [...] | Monitor | | MD [address] | Interrogation | | | | | [place], | (Primary Dx); | | | | | [place] [address] | Presence of | | | | | [phone] | permanent cardiac | | | | [...] W | | | | | | [place], | | | | | | [place] [address] | | | | | | [phone] | | | | | | | [...] | feces, unspecified | (Approximate), | | (nam) | | | fecal incontinence | Expires: [...]
--- OUTSIDE RECORDS SUMMARY | ~2019-11-16 | XMS | Encounter Summary ---
Demographics + + + | Address | [address] | | | [place] [address] | + + + | Home Phone [...] Providers + +------+ + | Care Sales Architect Name | Role | Phone | [...] CARDIOLOGY [address] | MD [address] | Dx); SINUS | | | | [place], | [place], | [place] | | | | [place] [address] | [place] [address] | | | | | [phone] | [phone] | | | | | | | [...] Dx); | | | | | [place] [address] | Presence of | | | | | [phone] | permanent cardiac | | | | [...] Interrogation | | | | | [place], | (Primary Dx); | | | | | [place] [address] | Presence of | | | | | [phone] | permanent cardiac | | | | [...] W | | | | | | [place], | | | | | | [place] [address] | | | | | | [phone] | | | | | | | | +--------+ + + + + documented as of this encounter Visit Diagnoses + + | Diagnosis | + + | Chest pain - Primary Chest pain, unspecified | + + | SINUS BRADYCARDIA Sinoatrial node dysfunction | + + documented in this encounter
--- OUTSIDE RECORDS SUMMARY | ~2019-11-16 | XMS | Encounter Summary ---
Demographics + + + | Address | [address] | | | [place] [address] | + + + | Home Phone [...] Providers + +------+ + | Care Rotary Bar Operator Name | Role | Phone | [...] + | 07/12/ | Office | [facility] | Michael Amanda, | Preventative health | | 2013 | Visit | MEDICINE [place] | DO [address] | care (Primary Dx); | | | | [address] | [place], [place] | Prostate cancer | | | | [place], [place] | [address] | screening; | | | | [address] | | Hypercholesterolemia | | | | [phone] | | ; Hypertension; | | | [...] clear cause was found. He has seen starting gate driver and has a rechec k plan. Possible [...] Interrogation | | | | | [place], | (Primary Dx); | | | | | [place] [address] | Presence of | | | | | [phone] | permanent cardiac | | | | [...] | Monitor | | MD [address] | Interrogation | | | | | [place], | (Primary Dx); | | | | | [place] [address] | Presence of | | | | | [phone] | permanent cardiac | | | | [...] W | | | | | | [address], | | | | | | [place] [address] | | | | | | [phone] | | | | | | | [...]
--- OUTSIDE RECORDS SUMMARY | ~2019-11-16 | XMS | Encounter Summary ---
Demographics + + + | Address | [address] | | | [place] [address] | + + + | Home Phone [...] Team Providers + +------+ + | Care Tank Stave Assembler Name | Role | Phone | + +------+ + PCP | Unavailable | + +------+ + Encounter Details +--------+ + + + + | Date | Type | Department | Care Team | Description | +--------+ + + + + | 09/12/ | Hospital | [facility] | | | | 1993 | Encounter | MED CTR EMERGENCY | | | | | | CENTER [address] | | | | | | [place] | | | | | | [address] | | | | | | [phone] | | | +--------+ + + + [...] Dx); | | | | | [place] [address] | Presence of | | | | | [phone] | permanent cardiac | | | | [...] Interrogation | | | | | [place], | (Primary Dx); | | | | | [place] [address] | Presence of | | | | | [phone] | permanent cardiac | | | | [...] W | | | | | | [place], | | | | | | [place] [address] | | | | | | [phone] | | | | | | | | +--------+ + + + + documented as of this encounter Visit Diagnoses Not on filedocumented in this encounter"
--- OUTSIDE RECORDS SUMMARY | ~2019-11-16 | XMS | Encounter Summary ---
Demographics + + + | Address | [address] | | | [place] [address] | + + + | Home Phone [...] Providers + +------+ + | Care Seating Upholsterer Name | Role | Phone | + +------+ + PCP | Unavailable | + +------+ + Encounter Details +--------+ + + + + | Date | Type | Department | Care Team | Description | +--------+ + + + + | 01/20/ | [facility] | [facility] | Geri Angel, | | | 2009 | Encounter | MED CTR GENERIC OP | LINE SERVICER [address] | | | | | CONV DEPT [address] | [address] [place] | | | | | [address] [place], | [id number] | | | | | [place] [address] | | | | | | [phone] | | | +--------+ + + + [...] Interrogation | | | | | [place], | (Primary Dx); | | | | | [place] [address] | Presence of | | | | | [phone] | permanent cardiac | | | | [...] Interrogation | | | | | [place], | (Primary Dx); | | | | | [place] [address] | Presence of | | | | | [phone] | permanent cardiac | | | | [...] W | | | | | | [place], | | | | | | [place] [address] | | | | | | [phone] | | | | | | | | +--------+ + + + + documented as of this encounter Visit Diagnoses Not on filedocumented in this encounter"
--- OUTSIDE RECORDS SUMMARY | ~2019-11-16 | XMS | Encounter Summary ---
Demographics + + + | Address | [address] | | | [place] [address] | + + + | Home Phone [...] + +------+ + | Care Packing And Shipping Clerk Name | Role | Phone | [...] + + | 01/05/ | Office | [facility] | Silvia, | Pacemaker - | | 2018 | Visit | CARDIOLOGY [address] | [address] [place] [address] | [employer] - [id number] | | | | [place], | [place], | [place]plant[place] | | | | [place] [id number] | [place] [id number] | 06/14/2009 (Primary | | | | [phone] | [phone] | Dx); Chest pain, | | | [...] involving | | | | | | inupiat coronary | | | | | | artery of inupiat | | | | | | heart [...] of non-critical coronary artery d isease involving inupiat coronary artery of inupiat heart without angina pectoris, essential h ypertension, [...] pain. He went to the ER in [place] because th e NTG didn't relieved the pain. He was diagnosed with bronchitis. Otherwise he has had no ot her symptoms. He has had a good energy level. He tries to stay active. He has joined a [employer] gym and trying to exercise more often. [...] Preventative health care Coronary artery disease involving inupiat coronary artery of inupiat heart without angina pectoris Cannabis abuse, daily [...] by mouth every evening 90 tablet 0 [facility] Natural Products (OSTEO [...] 3RD DOSE, CALL 911 100 tablet 3 [place]-3 Fatty Acids (SALMON OIL-1000 PO) CAPS, one capsule by mouth daily twice daily ONE TOUCH DELICA LANCETS [facility] Check glucose as needed for hypoglycemia 100 [...] RESULTS reviewed during visit today primarily from [facility]: LIPID Lab Results Component Value [...] 131 (A) 10/18/2017 I reviewed records from [facility] for office visit on 01/2017 [...] overload. 2. Non-critical Coronary artery disease involving inupiat coronary a rtery of inupiat heart without angina pectoris: A. Normal exercise [...] to go back in 3 days to [place] for an attempt of ablation under general [...] a normal stable device function. Estimated remaining [facility] longevity is 3.5 years.. 5. [...] this chart may have been created with [employer] voice recognition software. Occasi onal wrong-word or [...] Dx); | | | | | [place] [address] | Presence of | | | | | [phone] | permanent cardiac | | | | [...] Interrogation | | | | | [place], | (Primary Dx); | | | | | [place] [id number] | Presence of | | | | | [phone] | permanent cardiac | | | | [...] W | | | | | | [place], | | | | | | [place] [id number] | | | | | | [phone] | | | | | | | [...] dysfunction | | | | | | ([facility]) with | | | | | | symptomatic | | | | | | bradycardia | | | | | | Symptomatic PVCs | | | | | | Tachycardia | | | | | | Coronary artery | | | | | | disease involving | | | | | | inupiat coronary | | | | | | artery of inupiat | | | | | | heart [...] SYDNI | | | | | | ([id number]) on 01/06/2018 | | | | | [...] + + | Coronary artery disease involving inupiat coronary artery of inupiat heart without | | angina pectoris | + + | Hyperlipidemia, mixed Mixed hyperlipidemia | + + | Hypertension, unspecified type | + + | Syncope, unspecified syncope type | + + | Ascending thoracic aortic aneurysm (HCC) Thoracic aneurysm without mention of rupture | + + documented in this encounter
--- OUTSIDE RECORDS SUMMARY | ~2019-11-16 | XMS | Encounter Summary ---
Demographics + + + | Address | [address] | | | [place] [address] | + + + | Home Phone [...] Providers + +------+ + | Care Remote Medical Coder Name | Role | Phone | + [...] | | | | [place] | [address] | | | | | [address] | | | | | | [phone] | | | +--------+ + + + [...] Interrogation | | | | | [place], | (Primary Dx); | | | | | [place] [address] | Presence of | | | | | [phone] | permanent cardiac | | | | [...] Interrogation | | | | | [place], | (Primary Dx); | | | | | [place] [address] | Presence of | | | | | [phone] | permanent cardiac | | | | [...] W | | | | | | [place], | | | | | | [place] [address] | | | | | | [phone] | | | | | | | | +--------+ + + + + documented as of this encounter Visit Diagnoses Not on filedocumented in this encounter"
--- OUTSIDE RECORDS SUMMARY | ~2019-11-16 | XMS | Encounter Summary ---
Demographics + + + | Address | [address] | | | [place] [address] | + + + | Home Phone [...] Team Providers + +------+ + | Care Licensing Court Magistrate Name | Role | Phone | + [...] + | 11/05/ | Telephone | [facility] | Daljit Singletary, | Chest Pain | | 2016 | | CARDIOLOGY [address] | MD [address] | | | | | [place], | [place], | | | | | [place] [address] | [place] [address] | | | | | [phone] | [phone] | | | | | | | [...] Interrogation | | | | | [place], | (Primary Dx); | | | | | [place] [address] | Presence of | | | | | [phone] | permanent cardiac | | | | [...] | Monitor | | MD [address] [place] | Interrogation | | | | | [place], | (Primary Dx); | | | | | [place] [address] | Presence of | | | | | [phone] | permanent cardiac | | | | [...] | | | | | | [place] [address] | | | | | | [phone] | | | | | | | | +--------+ + + + + documented as of this encounter Visit Diagnoses Not on filedocumented in this encounter"
--- OUTSIDE RECORDS SUMMARY | ~2019-11-16 | XMS | Encounter Summary ---
Demographics + + + | Address | [address] | | | [place] [address] | + + + | Home Phone [...] Team Providers + +------+ + | Care Fish Packer Name | Role | Phone | + +------+ + | Kirk French MD | PCP | | + +------+ + Encounter Details +--------+ + + + + | Date | Type | Department | Care Team | Description | +--------+ + + + + | 01/05/ | Anesthesia | [facility] | Jarett Barakat | | | 2019 | Event | MED CTR MP INTRA OP | P, MD [address] | | | | | [address] | [address] [place], [place] | | | | | [place], [place] | [address] | | | | | [address] | [phone] | | | | | [phone] | | | +--------+ + + + [...] explained and consent obtained. Patient transported to [facility], | | | 4 | | Monitors [...] | 01/05/19950 by | | eral | [id number] catheter system; | Kasie Natarajan RN | [...] Dx); | | | | | [place] [address] | Presence of | | | | | [phone] | permanent cardiac | | | | [...] Interrogation | | | | | [place], | (Primary Dx); | | | | | [place] [address] | Presence of | | | | | [phone] | permanent cardiac | | | | [...] | | | | | | [place] [address] | | | | | | [phone] | | | | | | | [...]
--- OUTSIDE RECORDS SUMMARY | ~2019-11-16 | XMS | Encounter Summary ---
Demographics + + + | Address | [address] | | | [place] [address] | + + + | Home Phone [...] Providers + +------+ + | Care Manager Specialty Name | Role | Phone | + +------+ + PCP | Unavailable | + +------+ + Encounter Details +--------+ + + + + | Date | Type | Department | Care Team | Description | +--------+ + + + + | 10/29/ | Hospital | [facility] GENER[facility] | Pia Akhtar | | | 2003 | Encounter | CONVERSION DEP [address] | MD [address] | | | | | [address] | [address] | | | | | [place] | [place] [address] | | | | | [address] | [phone] | | | | | [phone] | | | +--------+ + + + [...] 2019 | Monitor | | [address] | Interrogation | | | | | [place], | (Primary Dx); | | | | | [place] [address] | Presence of | | | | | [phone] | permanent cardiac | | | | [...] 2019 | Monitor | | MD Sim [facility] | Interrogation | | | | | [place], | (Primary Dx); | | | | | [place] [address] | Presence of | | | | | [phone] | permanent cardiac | | | | [...] W | | | | | | [place], | | | | | | [place] [address] | | | | | | [phone] | | | | | | | | +--------+ + + + + documented as of this encounter Visit Diagnoses Not on filedocumented in this encounter"
--- OUTSIDE RECORDS SUMMARY | ~2019-11-16 | XMS | Encounter Summary ---
Demographics + + + | Address | [address] [place] [address] | | | [place] [address] | + + + | Home Phone [...] [place] | | | | | [address] | | + + + + + Care Team Providers + +------+ + | Care Dragline Mechanic Name | Role | Phone | [...] | | 2019 | | Center at [facility] [address] | Gastroenterology | Gastroenterology | | | | [address]A [place]rem[place]ane | | | | | | Mailcode: [place] | | | | | | [facility] and | | | | | | [place] [address] | | | | | | [place], [place] | | | | | | [address] | | | | | | [phone] | | | +--------+ + + + [...]
--- OUTSIDE RECORDS SUMMARY | ~2019-11-16 | XMS | Encounter Summary ---
Demographics + + + | Address | [address] [place] [address] | | | [place] [address] | + + + | Home Phone [...] [place] | | | | | [address] | | + + + + + Care Team Providers + +------+ + | Care Asphalt Paving Machine Operator Name | Role | Phone [...] | | | | | TRANSTH[facility]I | [place], [place] | for Health | | | | | C | [address] | and Healing, | | | | | ECHOCARDIOGR | Phone: | Building [address] | | | | | AM, ADULT | [phone] | [place], [place] | | | | | | Fax: | [address] | | | | | | [phone] | Phone: | | | | | | | [phone] | +--------+--------+ + + + + Encounter Details +--------+ + + + + | Date | Type | Department | Care Team | Description | +--------+ + + + + | 02/03/ | Hospital | Cardiac | | | | 2010 | Encounter | Non-Invasive Testing | | | | | | at [facility] [address] | | | | | | Tremayne Crane Mailcode: | | | | | | [facility] | | | | | | Health and Healing, | | | | | | Building [address] | | | | | | [place], [place] | | | | | | [address] | | | | | | [phone] | | | +--------+ + + + [...]
--- OUTSIDE RECORDS SUMMARY | ~2019-11-16 | XMS | Encounter Summary ---
Demographics + + + | Address | [address] | | | [place] [address] | + + + | Home Phone [...] Team Providers + +------+ + | Care Wash And Greaser Name | Role | Phone | + [...] GASTROENTEROLOGY | [address], [place] | | | | | [address] [place] | [address] [place], [place] | | | | | [address] [place], [place] | [address] | | | | | [address] | | | | | | [phone] | | | +--------+ + + + [...] | Monitor | | MD [address] | Interrogation | | | | | [place], | (Primary Dx); | | | | | [place] [address] | Presence of | | | | | [phone] | permanent cardiac | | | | [...] | Monitor | | MD [address] | Interrogation | | | | | [place], | (Primary Dx); | | | | | [place] [address] | Presence of | | | | | [phone] | permanent cardiac | | | | [...] | | | | | | [place] [address] | | | | | | [phone] | | | | | | | | +--------+ + + + + documented as of this encounter Visit Diagnoses Not on filedocumented in this encounter"
--- OUTSIDE RECORDS SUMMARY | ~2019-11-16 | XMS | Encounter Summary ---
Demographics + + + | Address | [address] | | | [place] [address] | + + + | Home Phone [...] Team Providers + +------+ + | Care Armor Reconnaissance Vehicle Crewman Name | Role | Phone [...] [address] | | | | | [place], | [place], | | | | | [place] [address] | [place] [address] | | | | | [phone] | [phone] | | | | | | | [...] Dx); | | | | | [place] [address] | Presence of | | | | | [phone] | permanent cardiac | | | | [...] 2019 | Monitor | | [address] [place] | Interrogation | | | | | [place], | (Primary Dx); | | | | | [place] [address] | Presence of | | | | | [phone] | permanent cardiac | | | | [...] | | | | | | [place] [address] | | | | | | [phone] | | | | | | | | +--------+ + + + + documented as of this encounter Visit Diagnoses Not on filedocumented in this encounter"
--- OUTSIDE RECORDS SUMMARY | ~2019-11-16 | XMS | Encounter Summary ---
Demographics + + + | Address | [address] | | | [place] [address] | + + + | Home Phone [...] Providers + +------+ + | Care Door Attendant Name | Role | Phone | [...] CTR CASE | RN | (referral from [facility]) | | | | MANAGEMENT [address] | | | | | | [place], | | | | | | [place] [address] | | | | | | [phone] | | | +--------+ + + + [...] | | 2019 | Monitor | | [place] [facility] | Interrogation | | | | | [place], | (Primary Dx); | | | | | [place] [address] | Presence of | | | | | [phone] | permanent cardiac | | | | [...] Dx); | | | | | [place] [address] | Presence of | | | | | [phone] | permanent cardiac | | | | [...] W | | | | | | [place], | | | | | | [place] [address] | | | | | | [phone] | | | | | | | | +--------+ + + + + documented as of this encounter Visit Diagnoses Not on filedocumented in this encounter"
--- OUTSIDE RECORDS SUMMARY | ~2019-11-16 | XMS | Encounter Summary ---
Demographics + + + | Address | [address] | | | [place] [address] | + + + | Home Phone [...] + +------+ + | Care Motion Picture Equipment Supervisor Name | Role | Phone | [...] + + | 04/12/ | Telephone | [facility] | Daljit Singletary, | Other (issues with | | 2017 | | CARDIOLOGY [address] | MD [address] [place] | low blood pressure | | | | [place], | [place], | and dizziness) | | | | [place] [address] | [place] [address] | | | | | [phone] | | | | | | | [...] | Monitor | | MD [address] [place] | Interrogation | | | | | [place], | (Primary Dx); | | | | | [place] [address] | Presence of | | | | | [phone] | permanent cardiac | | | | [...] | Monitor | | MD [address] [place] | Interrogation | | | | | [place], | (Primary Dx); | | | | | [place] [address] | Presence of | | | | | [phone] | permanent cardiac | | | | [...] | | | | | | [place] [address] | | | | | | [phone] | | | | | | | | +--------+ + + + + documented as of this encounter Visit Diagnoses Not on filedocumented in this encounter"
--- OUTSIDE RECORDS SUMMARY | ~2019-11-16 | XMS | Encounter Summary ---
Demographics + + + | Address | [address] | | | [place] [address] | + + + | Home Phone [...] Team Providers + +------+ + | Care Tractor Engine Assembler Name | Role | Phone | [...] Provider Unknown | | | | | [place], [place] | [phone] | | | | | [address] | | | | | | [phone] | | | +--------+ + + + [...] + + + +---------+ + + | [place]-3 Fatty | CAPS, one capsule by | [...] Dx); | | | | | [place] [address] | Presence of | | | | | [phone] | permanent cardiac | | | | [...] Interrogation | | | | | [place], | (Primary Dx); | | | | | [place] [address] | Presence of | | | | | [phone] | permanent cardiac | | | | [...] W | | | | | | [place], | | | | | | [place] [address] | | | | | | [phone] | | | | | | | [...]
--- OUTSIDE RECORDS SUMMARY | ~2019-11-16 | XMS | Encounter Summary ---
Demographics + + + | Address | [address] [place] [address] | | | [place] [address] | + + + | Home Phone [...] [place] | | | | | [address] | | + + + + + Care Team Providers + +------+ + | Care Environmental Management Specialist Name | Role | Phone [...] | | | [address] | [place], [place] | | | | | Mailcode: [place] | [address] | | | | | for Health and | [phone] | | | | | [facility] [address] | | | | | | [place], [place] | | | | | | [address] | | | | | | [phone] | | | +--------+ + + + [...]
--- OUTSIDE RECORDS SUMMARY | ~2019-11-16 | XMS | Encounter Summary ---
Demographics + + + | Address | [address] | | | [place] [address] | + + + | Home Phone [...] Providers + +------+ + | Care Charge Manager Name | Role | Phone | [...] + + | 12/21/ | Office | [facility] | [place], | Chest pain (Primary | | 2013 | Visit | CARDIOLOGY [address] | [address] [place] [address] | Dx); Symptomatic | | | | [place], | [place], | PVCs; | | | | [place] [address] | [place] [address] | Hyperlipidemia; | | | | [phone] | [phone] | Hypertension; | | | | | [...] this time to see a specialist in [place] and he was to follow up with [...] MOUTH EVERY DAY 30 table t 5 [place]-3 Fatty Acids (SALMON OIL-1000 PO) CAPS, one [...] to go back in 3 [address] to [place] for an attempt of ablation under general [...] tolic function, LVEF 65 to 70%. B. [address] DDD permanent pacemaker implantation on 06/14/09 by [...] made to ensure accuracy; however, inadvertent computerized account executive errors may be pre sent. documented in this encounter Plan of Treatment +--------+ + + + + | Date | Type | Specialty | Care Team | Description | +--------+ + + + + | 11/20/ | Implant | Cardiology | Daljit Singletary, | Remote Device | | 2019 | Monitor | | MD [facility] | Interrogation | | | | | [place], | (Primary Dx); | | | | | [place] [address] | Presence of | | | | | [phone] | permanent cardiac | | | | [...] 2018 | Monitor | | MD [facility] | Interrogation | | | | | [place], | (Primary Dx); | | | | | [place] [address] | Presence of | | | | | [phone] | permanent cardiac | | | | [...] W | | | | | | [place], | | | | | | [place] [address] | | | | | | [phone] | | | | | | | [...] of unspecified type of vessel, | | umkumiut or graft | + + documented in this encounter
--- OUTSIDE RECORDS SUMMARY | ~2019-11-16 | XMS | Encounter Summary ---
Demographics + + + | Address | [address] | | | [place] [address] | + + + | Home Phone [...] Team Providers + +------+ + | Care Editor Producer Name | Role | Phone | + +------+ + | Kirk French MD | PCP | | + +------+ + Encounter Details +--------+ + + + + | Date | Type | Department | Care Team | Description | +--------+ + + + + | 03/15/ | Hospital | [facility] | Conversion | | | 2017 | Encounter | [facility] XRAY | Transaction, | | | | | [address] | Provider Unknown | | | | | [address] [place] | [phone] | | | | | [address] | | | | | | [phone] | Kirk French | | | | | | MD [address] | | | | | | [place] [address] [place], | | | | | | [place] [address] | | | | | | [phone] | | | | | | | [...] + + + +---------+ + + | [place]-3 Fatty | CAPS, one capsule by | [...] Dx); | | | | | [place] [address] | Presence of | | | | | [phone] | permanent cardiac | | | | [...] Interrogation | | | | | [place], | (Primary Dx); | | | | | [place] [address] | Presence of | | | | | [phone] | permanent cardiac | | | | [...] W | | | | | | [place], | | | | | | [place] [address] | | | | | | [phone] | | | | | | | | +--------+ + + + + documented as of this encounter Visit Diagnoses Not on filedocumented in this encounter"
--- OUTSIDE RECORDS SUMMARY | ~2019-11-16 | XMS | Encounter Summary ---
Demographics + + + | Address | [address] | | | [place] [address] | + + + | Home Phone [...] Team Providers + +------+ + | Care Call Or Contact Centre Manager Name | Role | Phone | [...] | | GASTROENTEROLOGY | [address], [place] | | | | | [address] [place] | [address] [place], [place] | | | | | [address] [place], [place] | [address] | | | | | [address] | | | | | | [phone] | | | +--------+ + + + [...] Interrogation | | | | | [place], | (Primary Dx); | | | | | [place] [address] | Presence of | | | | | [phone] | permanent cardiac | | | | [...] 2018 | Monitor | | [address] | Interrogation | | | | | [place], | (Primary Dx); | | | | | [place] [address] | Presence of | | | | | [phone] | permanent cardiac | | | | [...] | | | | | | [place] [address] | | | | | | [phone] | | | | | | | | +--------+ + + + + documented as of this encounter Visit Diagnoses Not on filedocumented in this encounter"
--- OUTSIDE RECORDS SUMMARY | ~2019-11-16 | XMS | Encounter Summary ---
Demographics + + + | Address | [address] | | | [place] [address] | + + + | Home Phone [...] Providers + +------+ + | Care Sales Project Coordinator Name | Role | Phone | [...] [address] | | | | | [place], | [place], | | | | | [place] [address] | [place] [address] | | | | | [phone] | [phone] | | | | | | | [...] Interrogation | | | | | [place], | (Primary Dx); | | | | | [place] [address] | Presence of | | | | | [phone] | permanent cardiac | | | | [...] 2018 | Monitor | | [address] [place] | Interrogation | | | | | [place], | (Primary Dx); | | | | | [place] [address] | Presence of | | | | | [phone] | permanent cardiac | | | | [...] | | | | | | [place] [address] | | | | | | [phone] | | | | | | | | +--------+ + + + + documented as of this encounter Visit Diagnoses Not on filedocumented in this encounter"
--- OUTSIDE RECORDS SUMMARY | ~2019-11-16 | XMS | Encounter Summary ---
Demographics + + + | Address | [address] | | | [place] [address] | + + + | Home Phone [...] Team Providers + +------+ + | Care Wreath And Garland Maker Name | Role | Phone | + +------+ + PCP | Unavailable | + +------+ + Encounter Details +--------+ + + + + | Date | Type | Department | Care Team | Description | +--------+ + + + + | 06/03/ | Hospital | [facility] | | | | 2008 | Encounter | MED CTR EMERGENCY | | | | | | [place] [address] | | | | | | [place] | | | | | | [address] | | | | | | [phone] | | | +--------+ + + + [...] Dx); | | | | | [place] [address] | Presence of | | | | | [phone] | permanent cardiac | | | | [...] Interrogation | | | | | [place], | (Primary Dx); | | | | | [place] [address] | Presence of | | | | | [phone] | permanent cardiac | | | | [...] W | | | | | | [place], | | | | | | [place] [address] | | | | | | [phone] | | | | | | | | +--------+ + + + + documented as of this encounter Visit Diagnoses Not on filedocumented in this encounter"
--- OUTSIDE RECORDS SUMMARY | ~2019-11-16 | XMS | Encounter Summary ---
Demographics + + + | Address | [address] | | | [place] [address] | + + + | Home Phone [...] Providers + +------+ + | Care Night Court Magistrate Name | Role | Phone [...] + | 01/02/ | Telephone | [facility] | Daljit Singletary, | Other (chest pain) | | 2018 | | CARDIOLOGY [address] | MD [address] | | | | | [place], | [place], | | | | | [place] [address] | [place] [address] | | | | | [phone] | [phone] | | | | | | | [...] Interrogation | | | | | [place], | (Primary Dx); | | | | | [place] [address] | Presence of | | | | | [phone] | permanent cardiac | | | | [...] 2018 | Monitor | | [address] | Interrogation | | | | | [place], | (Primary Dx); | | | | | [place] [address] | Presence of | | | | | [phone] | permanent cardiac | | | | [...] | | | | | | [place] [address] | | | | | | [phone] | | | | | | | | +--------+ + + + + documented as of this encounter Visit Diagnoses Not on filedocumented in this encounter"
--- OUTSIDE RECORDS SUMMARY | ~2019-11-16 | XMS | Encounter Summary ---
Demographics + + + | Address | [address] | | | [place] [address] | + + + | Home Phone [...] Team Providers + +------+ + | Care Robot Programmer Name | Role | Phone | + +------+ + PCP | Unavailable | + +------+ + Encounter Details +--------+ + + + + | Date | Type | Department | Care Team | Description | +--------+ + + + + | 06/13/ | [facility] | [facility] | Daljit Singletary, | | | 2008 | Encounter | MED CTR LABORATORY | [address] | | | | | [address] | [place], | | | | | [place] | [place] [address] | | | | | [address] | [phone] | | | | | [phone] | | | +--------+ + + + [...] Dx); | | | | | [place] [address] | Presence of | | | | | [phone] | permanent cardiac | | | | [...] Dx); | | | | | [place] [address] | Presence of | | | | | [phone] | permanent cardiac | | | | [...] W | | | | | | [place], | | | | | | [place] [address] | | | | | | [phone] | | | | | | | | +--------+ + + + + documented as of this encounter Visit Diagnoses Not on filedocumented in this encounter"
--- OUTSIDE RECORDS SUMMARY | ~2019-11-16 | XMS | Encounter Summary ---
Demographics + + + | Address | [address] | | | [place] [address] | + + + | Home Phone [...] Team Providers + +------+ + | Care Forklift Wheel Loader Name | Role | Phone | [...] 2019 | | GASTROENTEROLOGY | [address], [place] | | | | | [address] [place] | [address] [place], [place] | | | | | [address] [place], [place] | [address] | | | | | [address] | | | | | | [phone] | | | +--------+ + + + [...] Interrogation | | | | | [place], | (Primary Dx); | | | | | [place] [address] | Presence of | | | | | [phone] | permanent cardiac | | | | [...] | Monitor | | MD [address] | Interrogation | | | | | [place], | (Primary Dx); | | | | | [place] [address] | Presence of | | | | | [phone] | permanent cardiac | | | | [...] | | | | | | [place] [address] | | | | | | [phone] | | | | | | | | +--------+ + + + + documented as of this encounter Visit Diagnoses Not on filedocumented in this encounter"
--- OUTSIDE RECORDS SUMMARY | ~2019-11-16 | XMS | Encounter Summary ---
Demographics + + + | Address | [address] | | | [place] [address] | + + + | Home Phone [...] Providers + +------+ + | Care Marketing Pr Intern Name | Role | Phone | [...] + + | 08/29/ | Office | [facility] | Silvia, | Essential | | 2015 | Visit | CARDIOLOGY [address] | PARISA [place] [address] | hypertension | | | | [place], | [place], | (Primary Dx); | | | | [place] [address] | [place] [address] | Coronary artery | | | | [phone] | [phone] | disease involving | | | | | | shinnecock coronary | | | | | | [...] was seen in the emergency room at [facility] on 08/23/20 15 and the ER physician reviewed his chart saying that there were 2 ultrasounds from [facility] both of them are clear of DVT but reveal some venous insufficiency. Today, arian ent tells me that he started having swelling in both his feet within a week when he got to [facility]. He had extensive traveling. He went to [...] Preventative health care Coronary artery disease involving shinnecock coronary artery without angina pectoris Cannabis abuse, [...] by mouth every evening. 90 tablet 3 [facility] [...] 3rd dose, call 911 100 tablet 3 [place]-3 Fatty Acids (SALMON OIL-1000 PO) CAPS, one [...] Daily. to reduce urinary frequenc y Lot #[id number], exp 07/2016 (Patient taking differently: Take 8 mg by mouth Daily. PATIENT STA YOSELIN NO LONGER TAKING THIS MEDICATION. STATED ON 08/29/2015. to reduce urinary frequency Lot #[id number], exp 07/2016) 21 capsule 0 Specialty Vitamins [...] PLTEX 163 07/26/2014 I reviewed records from [facility] for emergency department visit o n 08/23/2015. [...] brought reports to the emergency room at [facility] and according to the not es [...] to go back in 3 days to [place] for an attempt of ablation under general [...] dizziness. He is in class I-II of [place] 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 T here are [...] this chart may have been created with [employer] voice recognition software. Occasi onal wrong-word or [...] | MD [address] [facility] | Interrogation | | | | | [place], | (Primary Dx); | | | | | [place] [address] | Presence of | | | | | [phone] | permanent cardiac | | | | [...] | | MD [facility] | Interrogation | | | | | [place], | (Primary Dx); | | | | | [place] [address] | Presence of | | | | | [phone] | permanent cardiac | | | | [...] | | | | | | [place] [address] | | | | | | [phone] | | | | | | | [...] the | | | | PDT | shinnecock coronary | results section. | | | [...] HISTORY: DVT. COMPARISON: None. TECHNIQUE: Compression | [facility] | | sonography was performed from the groin through the popliteal fossa | [facility] | | in both lower extremities.. [...] conveyed to the ordering provider, by the coach wirer, | | | immediately following the exam. [...] to the ordering provider, by the | |coach wirer, immediately following the exam. | | | | | |Dictated and Signed by: Emmanuel Gibbons MD | | Electronically signed: 08/29/2015 3:25 PM | + + + + + + + | Performing | Address | City/State/Zipcode | Phone Number | | Organization | | | | + + + + + | [facility] | [address] | [place] | [phone] | | [facility] | | [address] | | | - IMAGING | | [...] MD | | | | | | ([id number]) on 08/29/2015 | | | | | [...] + + | Coronary artery disease involving shinnecock coronary artery without angina pectoris | + + | DVT (deep venous thrombosis), bilateral | + + documented in this encounter
--- OUTSIDE RECORDS SUMMARY | ~2019-11-16 | XMS | Encounter Summary ---
Demographics + + + | Address | [address] | | | [place] [address] | + + + | Home Phone [...] Providers + +------+ + | Care Tool Dresser Name | Role | Phone | [...] | | | DDD | Scotty C, ACCOUNTS RECEIVABLE PROCESSOR | [facility] | | | | | (degenerativ | [address] | [facility] | | | | | e disc | [facility] | MEDICAL | | | | | disease), | [address] | CENTER [address] | | | | | lumbar | B | [address] | | | | | Chronic | [place], [place] | [place], | | | | | left-sided | [address] | [place] [address] | | | | | low back | Phone: | Phone: | | | | | pain with | [phone] | [phone] | | | | | left-sided | Fax: | Fax: | | | | | sciatica | [phone] | [phone] | | | | | History of [...] | | | DDD | Scotty C, ACCOUNTS RECEIVABLE PROCESSOR | [address] | | | | | (degenerativ | [address] | [place], | | | | | e disc | [place] | [place] [address] | | | | | disease), | DRIVE [address] | Phone: | | | | | lumbar | B | [phone] | | | | | Chronic | [place], [place] | Fax: | | | | | left-sided | [address] | [phone] | | | | | low back | Phone: | | | | | | pain with | [phone] | | | | | | left-sided | Fax: | | | | | | sciatica | [phone] | | | | | | History [...] + + | 07/01/ | Hospital | [facility] | Scotty Galdamez, | DDD (degenerative | | 2018 | Encounter | MED CTR [address] | ACCOUNTS RECEIVABLE PROCESSOR [address] | disc disease), | | | | [place], | [address] | lumbar; Chronic | | | | [place] [address] | [place] [address] | left-sided low back | | | | [phone] | [phone] | pain with left-sided | | | [...] + + + +---------+ + + | [place]-3 Fatty | CAPS, one capsule by | [...] MD [address] [facility] | Interrogation | | | | | [place], | (Primary Dx); | | | | | [place] [address] | Presence of | | | | | [phone] | permanent cardiac | | | | [...] 2018 | Monitor | | [address] | Interrogation | | | | | [place], | (Primary Dx); | | | | | [place] [address] | Presence of | | | | | [phone] | permanent cardiac | | | | [...] W | | | | | | [place], | | | | | | [place] [address] | | | | | | [phone] | | | | | | | [...]
--- OUTSIDE RECORDS SUMMARY | ~2019-11-16 | XMS | Encounter Summary ---
Demographics + + + | Address | [address] | | | [place] [address] | + + + | Home Phone [...] Providers + +------+ + | Care Leather Stitcher Name | Role | Phone | + +------+ + | Kirk French MD | PCP | | + +------+ + Encounter Details +--------+ + + + + | Date | Type | Department | Care Team | Description | +--------+ + + + + | 01/18/ | Hospital | [facility] IP | Conversion | Diagnosis unknown | | 2017 | Encounter | CONVERSION DE[address] | Transaction, | | | | | [address] | Provider Unknown | | | | | [place], [place] | [phone] | | | | | [address] | | | | | | [phone] | | | +--------+ + + + [...] + + + +---------+ + + | [place]oc[place]-3 Fatty | CAPS, one capsule by | [...] Dx); | | | | | [place] [address] | Presence of | | | | | [phone] | permanent cardiac | | | | [...] 2018 | Monitor | | [address] | Interrogation | | | | | [place], | (Primary Dx); | | | | | [place] [address] | Presence of | | | | | [phone] | permanent cardiac | | | | [...] W | | | | | | [place], | | | | | | [place] [address] | | | | | | [phone] | | | | | | | [...]
--- OUTSIDE RECORDS SUMMARY | ~2019-11-16 | XMS | Encounter Summary ---
Demographics + + + | Address | [address] | | | [place] [address] | + + + | Home Phone [...] Team Providers + +------+ + | Care Beveler Name | Role | Phone | [...] 2019 | | GASTROENTEROLOGY | [address], [place] | | | | | [address] [place] | [address] [place], [place] | | | | | [address] [place], [place] | [address] | | | | | [address] | | | | | | [phone] | | | +--------+ + + + [...] Interrogation | | | | | [place], | (Primary Dx); | | | | | [place] [address] | Presence of | | | | | [phone] | permanent cardiac | | | | [...] Interrogation | | | | | [place], | (Primary Dx); | | | | | [place] [address] | Presence of | | | | | [phone] | permanent cardiac | | | | [...] W | | | | | | [place], | | | | | | [place] [address] | | | | | | [phone] | | | | | | | | +--------+ + + + + documented as of this encounter Visit Diagnoses Not on filedocumented in this encounter"
--- OUTSIDE RECORDS SUMMARY | ~2019-11-16 | XMS | Encounter Summary ---
Demographics + + + | Address | [address] | | | [place] [address] | + + + | Home Phone [...] Providers + +------+ + | Care Fire Support Specialist Name | Role | Phone | + +------+ + PCP | Unavailable | + +------+ + Encounter Details +--------+ + + + + | Date | Type | Department | Care Team | Description | +--------+ + + + + | 06/14/ | [facility] | [facility] | Kennethshaistatesha Shaistakenneth, | | | 2008 - | Encounter | MED CTR MP INTRA OP | [address] | | | | | [address] | [address] [place], | | | 06/15/ | | [place] | [place] [address] | | | 2008 | | [address] | [phone] | | | | | [phone] | | | +--------+ + + + [...] Interrogation | | | | | [place], | (Primary Dx); | | | | | [place] [address] | Presence of | | | | | [phone] | permanent cardiac | | | | [...] | | 2018 | Monitor | | [place] [address] [facility] | Interrogation | | | | | [place], | (Primary Dx); | | | | | [place] [address] | Presence of | | | | | [phone] | permanent cardiac | | | | [...] W | | | | | | [place], | | | | | | [place] [address] | | | | | | [phone] | | | | | | | | +--------+ + + + + documented as of this encounter Visit Diagnoses Not on filedocumented in this encounter"
--- OUTSIDE RECORDS SUMMARY | ~2019-11-16 | XMS | Encounter Summary ---
Demographics + + + | Address | [address] | | | [place] [address] | + + + | Home Phone [...] + +------+ + | Care Construction Project Coordinator Name | Role | Phone | + +------+ + | Kirk French MD | PCP | | + +------+ + Encounter Details +--------+ + + + + | Date | Type | Department | Care Team | Description | +--------+ + + + + | 06/17/ | Orders Only | [facility] [place] | [place], | Hyperlipidemia, | | 2016 | | CARDIOLOGY [address] | Janeen WAREHOUSE ORDER PULLER [address] | mixed | | | | [place], | [place], | | | | | [place] [address] | [place] [address] | | | | | [phone] | [phone] | | | | | | | [...] Interrogation | | | | | [place], | (Primary Dx); | | | | | [place] [address] | Presence of | | | | | [phone] | permanent cardiac | | | | [...] 2018 | Monitor | | [address] [place] | Interrogation | | | | | [place], | (Primary Dx); | | | | | [place] [address] | Presence of | | | | | [phone] | permanent cardiac | | | | [...] W | | | | | | [place], | | | | | | [place] [address] | | | | | | [phone] | | | | | | | | +--------+ + + + + documented as of this encounter Visit Diagnoses + + | Diagnosis | + + | Hyperlipidemia, mixed Mixed hyperlipidemia | + + documented in this encounter"
--- OUTSIDE RECORDS SUMMARY | ~2019-11-16 | XMS | Encounter Summary ---
Demographics + + + | Address | [address] | | | [place] [address] | + + + | Home Phone [...] Team Providers + +------+ + | Care Stonehand Name | Role | Phone | + [...] + + | 06/25/ | Office | [facility] | [place], | SINUS BRADYCARDIA | | 2013 | Visit | CARDIOLOGY [address] | PARISA [place] [address] | (Primary Dx); | | | | [place], | [place], | Symptomatic PVCs; | | | | [place] [address] | [place] [address] | Coronary artery | | | | [phone] | [phone] | disease; | | | | | [...] needed for Chest pain. 25 tablet 12 [place]-3 Fatty Acids (SALMON OIL-1000 PO) CAPS, one [...] HGBEX 16.1 01/25/2014 [facility] [...] attenuation cannot completely be ruled out. [facility] 12/25/13, shows non critical [...] to go back in 3 days to [place] for an attempt of ablation under general [...] made to ensure accuracy; however, inadvertent computerized process checker errors may be pre sent. Electronically signed by: PARISA Russell 06/25/2014 12:38 documented in this encounter Plan of Treatment +--------+ + + + + | Date | Type | Specialty | Care Team | Description | +--------+ + + + + | 12/30/ | Implant | Cardiology | SunshineDaljit villarreal, | Remote Device | | 2018 | Monitor | | MD [address] | Interrogation | | | | | [place], | (Primary Dx); | | | | | [place] [address] | Presence of | | | | | [phone] | permanent cardiac | | | | [...] Interrogation | | | | | [place], | (Primary Dx); | | | | | [place] [address] | Presence of | | | | | [phone] | permanent cardiac | | | | [...] | | | | | | [place] [address] | | | | | | [phone] | | | | | | | | +--------+ + + + + documented as of this encounter Visit Diagnoses + + | Diagnosis | + + | SINUS BRADYCARDIA - Primary Sinoatrial node dysfunction | + + | Symptomatic PVCs Other premature beats | + + | Coronary artery disease Coronary atherosclerosis of unspecified type of vessel, | | [place] or graft | + + | Hypertension Unspecified essential hypertension | + + | Syncope Syncope and collapse | + + | Hyperlipidemia Other and unspecified hyperlipidemia | + + documented in this encounter
--- OUTSIDE RECORDS SUMMARY | ~2019-11-16 | XMS | Encounter Summary ---
Demographics + + + | Address | [address] | | | [place] [address] | + + + | Home Phone [...] Providers + +------+ + | Care Airplane Refueler Name | Role | Phone | + [...] + + | 06/06/ | Office | [facility] | [place], | Essential | | 2019 | Visit | CARDIOLOGY [address] | PARISA [place] [address] | hypertension | | | | [place], | [place], | (Primary Dx); | | | | [place] [address] | [place] [address] | Sinoatrial node | | | | [phone] | [phone] | dysfunction (HCC) | | | | [...] encounter Patient Instructions Patient Instructions Julia Allen, Teamsite Developer - 06/06/2019 2:15 PM PDT1. Take a [...] of -critical coronary artery dise ase involving umkumiut coronary artery of umkumiut heart without angina pectoris, essential hype rtension, [...] was seen in the emergency department at [facility] in [place] due to chest pain, no medication changes at that time. On 06/02/2019 he was seen here in the [facility] department with chest pain, irregular [...] Preventative health care Coronary artery disease involving umkumiut coronary artery of umkumiut heart without angina pectoris Cannabis abuse, daily [...] 3RD DOSE, CALL 911 100 tablet 3 [place]-3 Fatty Acids (SALMON OIL-1000 PO) CAPS, one [...] RESULTS reviewed during visit today primarily from [facility]: LIPID Lab Results Component Value Date [...] BNP 48 06/02/2019 I reviewed records from [facility] for emergency department visit o n 06/02/2019 which is summarized in the HPI. RESULTS- I reviewed reports from [facility]: Ct Abdomen Pelvis W Contrast Result [...] ASSESSMENT: 1. Non-critical Coronary artery disease involving umkumiut coronary artery of umkumiut heart [facility] angina pectoris: A.Normal [...] performed by Dr Juan Diego Gambino at [facility] on 01/30/2013.Patient had spontaneous PVC'sfr om [...] to go back in 3 days to [place] for an attempt of ablation under general [...] stable device function. Estimated remaining [facility] taylor longevity is 3.5 years. D. [...] visit, or sooner with concerns. Julia Clemente, Teamsite Developer am acting as a scribe on behalf of, and in the presenc e of PARISA Lomas. - Reji Church 06/06/2019 15:10 Janeen Clemente ARNP, personally performed the services described in this documentati on, as scribed in my presence and it is both accurate and complete. -PARISA Lomas 06/06/2019 Portions of this chart may have been created with [employer] voice recognition software. Occasi onal wrong-word or [...] Interrogation | | | | | [place], | (Primary Dx); | | | | | [place] [address] | Presence of | | | | | [phone] | permanent cardiac | | | | [...] Monitor | | [facility] | Interrogation | | | | | [place], | (Primary Dx); | | | | | [place] [address] | Presence of | | | | | [phone] | permanent cardiac | | | | [...] W | | | | | | [place], | | | | | | [place] [address] | | | | | | [phone] | | | | | | | [...] SYDNI | | | | | | ([id number]) on 06/06/2019 | | | | | [...]
--- OUTSIDE RECORDS SUMMARY | ~2019-11-16 | XMS | Encounter Summary ---
Demographics + + + | Address | [address] | | | [place] [address] | + + + | Home Phone [...] Providers + +------+ + | Care Director Digital Communications Name | Role | Phone | [...] + + | 04/10/ | Telephone | [facility] | Matthew Uriarte | Surgery Appointment | | 2019 | | [address] | MD Tawanna [address] | | | | | [place], [place] | [place], [place] | | | | | [address] | [address] | | | | | [phone] | | | +--------+ + + + [...] Interrogation | | | | | [place], | (Primary Dx); | | | | | [place] [address] | Presence of | | | | | [phone] | permanent cardiac | | | | [...] Interrogation | | | | | [place], | (Primary Dx); | | | | | [place] [address] | Presence of | | | | | [phone] | permanent cardiac | | | | [...] W | | | | | | [place], | | | | | | [place] [address] | | | | | | [phone] | | | | | | | | +--------+ + + + + documented as of this encounter Visit Diagnoses Not on filedocumented in this encounter"
--- OUTSIDE RECORDS SUMMARY | ~2019-11-16 | XMS | Encounter Summary ---
Demographics + + + | Address | [address] | | | [place] [address] | + + + | Home Phone [...] Team Providers + +------+ + | Care Billet Shearer Name | Role | Phone | [...] + | 11/26/ | Telephone | [facility] | [place], | Appointment (Needs | | 2017 | | CARDIOLOGY [address] | PARISA [place] [address] | rescheduled) | | | | [place], | [place], | | | | | [place] [address] | [place] [address] | | | | | [phone] | | | | | | | [...] | Monitor | | MD [address] | Interrogation | | | | | [place], | (Primary Dx); | | | | | [place] [address] | Presence of | | | | | [phone] | permanent cardiac | | | | [...] | Monitor | | MD [address] | Interrogation | | | | | [place], | (Primary Dx); | | | | | [place] [address] | Presence of | | | | | [phone] | permanent cardiac | | | | [...] | | | | | | [place] [address] | | | | | | [phone] | | | | | | | | +--------+ + + + + documented as of this encounter Visit Diagnoses Not on filedocumented in this encounter"
--- OUTSIDE RECORDS SUMMARY | ~2019-11-16 | XMS | Encounter Summary ---
Demographics + + + | Address | [address] | | | [place] [address] | + + + | Home Phone [...] Providers + +------+ + | Care Digital Content Producer Name | Role | Phone | [...] + | 06/02/ | Telephone | [facility] | Daljit Singletary, | Other (symptoms) | | 2019 | | CARDIOLOGY [address] | MD [address] [place] | | | | | [place], | [place], | | | | | [place] [address] | [place] [address] | | | | | [phone] | [phone] | | | | | | | [...] Dx); | | | | | [place] [address] | Presence of | | | | | [phone] | permanent cardiac | | | | [...] | Monitor | | MD [address] [place] | Interrogation | | | | | [place], | (Primary Dx); | | | | | [place] [address] | Presence of | | | | | [phone] | permanent cardiac | | | | [...] W | | | | | | [place], | | | | | | [place] [address] | | | | | | [phone] | | | | | | | | +--------+ + + + + documented as of this encounter Visit Diagnoses Not on filedocumented in this encounter"
--- OUTSIDE RECORDS SUMMARY | ~2019-11-16 | XMS | Encounter Summary ---
Demographics + + + | Address | [address] | | | [place] [address] | + + + | Home Phone [...] Team Providers + +------+ + | Care Nonprofit Manager Name | Role | Phone | [...] | SR | | | | | [phone] | | | +--------+ + + + [...] Dx); | | | | | [place] [address] | Presence of | | | | | [phone] | permanent cardiac | | | | [...] | 2018 | Monitor | | [address] | Interrogation | | | | | [place], | (Primary Dx); | | | | | [place] [address] | Presence of | | | | | [phone] | permanent cardiac | | | | [...] | | | | | | [place], | | | | | | [place] [address] | | | | | | [phone] | | | | | | | [...]
--- OUTSIDE RECORDS SUMMARY | ~2019-11-16 | XMS | Encounter Summary ---
Demographics + + + | Address | [address] | | | [place] [address] | + + + | Home Phone [...] Team Providers + +------+ + | Care Algorithm Developer Name | Role | Phone | + +------+ + | Kirk French MD | PCP | | + +------+ + Encounter Details +--------+ + + + + | Date | Type | Department | Care Team | Description | +--------+ + + + + | 03/15/ | Hospital | [facility] | Conversion | | | 2017 | Encounter | [facility] XRAY | Transaction, | | | | | [address] | Provider Unknown | | | | | [address] | [phone] | | | | | [address] | | | | | | [phone] | Kirk French | | | | | | MD Brea [address] | | | | | | [address], | | | | | | [place] [address] | | | | | | [phone] | | | | | | | [...] + + + +---------+ + + | [place]-3 Fatty | CAPS, one capsule by | [...] Dx); | | | | | [place] [address] | Presence of | | | | | [phone] | permanent cardiac | | | | [...] Interrogation | | | | | [place], | (Primary Dx); | | | | | [place] [address] | Presence of | | | | | [phone] | permanent cardiac | | | | [...] W | | | | | | [place], | | | | | | [place] [address] | | | | | | [phone] | | | | | | | | +--------+ + + + + documented as of this encounter Visit Diagnoses Not on filedocumented in this encounter"
--- OUTSIDE RECORDS SUMMARY | ~2019-11-16 | XMS | Encounter Summary ---
Demographics + + + | Address | [address] | | | [place] [address] | + + + | Home Phone [...] Providers + +------+ + | Care Dock Superintendent Name | Role | Phone | [...] | | CARDIOLOGY [address] | [address] [place] | | | | | [place], | [place], | | | | | [place] [address] | [place] [address] | | | | | [phone] | [phone] | | | | | | | [...] | Monitor | | MD [address] | Interrogation | | | | | [place], | (Primary Dx); | | | | | [place] [address] | Presence of | | | | | [phone] | permanent cardiac | | | | [...] Dx); | | | | | [place] [address] | Presence of | | | | | [phone] | permanent cardiac | | | | [...] W | | | | | | [place], | | | | | | [place] [address] | | | | | | [phone] | | | | | | | [...] + + | Performing | Address | City[facility]State[facility] | Phone Number | | Organization | | | | + + + + + | [facility] | [address] | [place] | [phone] | | [facility] | | [address] | | | - LABORATORY | | | | + + + + + | [facility] | [address] | [place] | | | [facility] | | [address] | | | - LABORATORY | | [...] | | | Serum | | | [facility] | [...]
--- OUTSIDE RECORDS SUMMARY | ~2019-11-16 | XMS | Encounter Summary ---
Demographics + + + | Address | [address] | | | [place] [address] | + + + | Home Phone [...] Team Providers + +------+ + | Care Exhibitor Sales Name | Role | Phone | [...] | 2018 | Changes | GASTROENTEROLOGY | [facility] | | | | | [address] [facility] | | | | | | [address] [place] | | | | | | [address] | | | | | | [phone] | | | +--------+ + + + [...] | 2018 | Monitor | | [address] [place] | Interrogation | | | | | [place], | (Primary Dx); | | | | | [place] [address] | Presence of | | | | | [phone] | permanent cardiac | | | | [...] | Monitor | | MD [address] [place] | Interrogation | | | | | [place], | (Primary Dx); | | | | | [place] [address] | Presence of | | | | | [phone] | permanent cardiac | | | | [...] W | | | | | | [place], | | | | | | [place] [address] | | | | | | [phone] | | | | | | | | +--------+ + + + + documented as of this encounter Visit Diagnoses Not on filedocumented in this encounter"
--- OUTSIDE RECORDS SUMMARY | ~2019-11-16 | XMS | Encounter Summary ---
Demographics + + + | Address | [address] | | | [place] [address] | + + + | Home Phone [...] Providers + +------+ + | Care Front End Web Developer Name | Role | Phone | + +------+ + | Micheal Amanda DO | PCP | | + +------+ + Encounter Details +--------+ + + + + | Date | Type | Department | Care Team | Description | +--------+ + + + + | 05/11/ | Hospital | [facility] | Conversion | Lumbago; | | 2013 | Encounter | [facility]ICAL CENTER | Transaction, | Postlaminectomy | | | | CLINICAL DECISION | Provider Unknown | syndrome, cervical | | | | [address] | | region; Cervicalgia | | | | [place], [place] | (Fax) | | | | | [address] | Cesar, | | | | | [phone] | MD Gamaliel | | +--------+ + [...] + + + +---------+ + + | Shidler-3 Fatty | CAPS, one capsule by | [...] Note by Meliza Macario RN at 05/11/14 1508 Author: Meliza Macario RN Service: (none) Author Type: Registered Nurse Filed: 05/11/14 1506 Date of Service: 05/11/14 150 Status: Signed Blade Balancer: Meliza Macario RN (Registered Nurse) Pt discharged [...] Date of Service: 05/11/14 142 Status: Signed Blade Balancer: Heike Mckeon RN (Registered Nurse) Called doctor [...] | | | | | [place], | (Primary Dx); | | | | | [place] [address] | Presence of | | | | | [phone] | permanent cardiac | | | | [...] | | | | | [place], | (Primary Dx); | | | | | [place] [address] | Presence of | | | | | [phone] | permanent cardiac | | | | [...] W | | | | | | [place], | | | | | | [place] [address] | | | | | | [phone] | | | | | | | [...] | | | intrathecal use. See the baby nurse examination for details of the | | | injection. Bone algorithm noncontrast technique with reformatted | | | sagittal and coronal images. Prior study for review : CT discogram | | | from 2004 was used to orient this examination given the transitional | | | anatomy of the lumbosacral junction FINDINGS: Fire Equipment Operator is notable | | | for [...] for intrathecal use. See | | the baby nurse examination for details of the injection. Bone algorithm noncontrast | | technique with reformatted sagittal and coronal images. Prior study for review : CT | | discogram from 2004 was used to orient this examination given the transitional anatomy | | of the lumbosacral junction FINDINGS: Fire Equipment Operator is notable for a pacing system. [...]
--- OUTSIDE RECORDS SUMMARY | ~2019-11-16 | XMS | Encounter Summary ---
Demographics + + + | Address | [address] | | | [place] [address] | + + + | Home Phone [...] Providers + +------+ + | Care Certified Cytotechnologist Name | Role | Phone | + [...] | | | | Sinoatrial | Geri, VOLUNTEER SERVICES DIRECTOR | [address] | | | | | node | [address] | [place], | | | | | dysfunction | [place] | [place] | | | | | (HCC) | [place], [place] | [address] | | | | | Coronary | [address] | Phone: | | | | | artery | Phone: | [phone] | | | | | disease | [phone] | Fax: | | | | | involving | Fax: | [phone] | | | | | [place] | [phone] | | | | | | coronary | | | | | | | artery of | | | | | | | [place] heart | | | | | | [...] | | | | | | Complete OR | | | | | | | ECHO HEART | | | | | | | XTHORACIC,CO | | | | | | | MPLETE W | | | | | | | DOPPLER OR | | | | | | | [...] | Visit | CARDIOLOGY [address] | VOLUNTEER SERVICES DIRECTOR [address] | dysfunction (HCC) | | | | [place], | St [place], [place] | with symptomatic | | | | [place] [address] | [address] | bradycardia (Primary | | | | [phone] | | Dx); Coronary | | | | | | artery disease | | | | | | involving [place] | | | | | | coronary artery of | | | | | | [place] heart without | | | | | [...] Preventative health care Coronary artery disease involving [place] coronary artery without angina pectoris Cannabis abuse, [...] 3rd dose, call 911 100 tablet 3 [place]-3 Fatty Acids (SALMON OIL-1000 PO) CAPS, one capsule by mouth daily twice daily ONE TOUCH DELICA LANCETS [facility] Check glucose as needed for [...] scanned Paceart documentation and device PDF in Serviceful for interrogation (with progr amming changes) performed [...] to go back in 3 days to [place] for an attempt of ablation under general [...] dizziness. He is in class I-II of [place] 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 T here are [...] this chart may have been created with OptiWi-fi voice recognition software. Occasi onal wrong-word or [...] Dx); | | | | | [place] [address] | Presence of | | | | | [phone] | permanent cardiac | | | | [...] | 2018 | Monitor | | [address] | Interrogation | | | | | [place], | (Primary Dx); | | | | | [place] [address] | Presence of | | | | | [phone] | permanent cardiac | | | | [...] W | | | | | | [place], | | | | | | [place] [address] | | | | | | [phone] | | | | | | | [...] VICTOR HUGO | [facility] | | BONNER Room Number SARAH Patient | [facility] | | [id number] Date of Study 06/16/2016 Number | - IMAGING | | Visit Number [id number] | | | Referring Physician JOSE ARMANDO GARCIA Number Date of 1960 | | | Vegetable Inspector LUIS FERNANDO DUARTE Age | | | 56 year(s) Interpreting | | | GURJIT TROY | | | Placement Secretary SYDNI SINGLETARY, | | | Gender | | | Male Nurse Procedure Type of Study TTE | | | procedure: ECHO Complete. Procedure dateDate: 06/16/2016Start: 10:55 | | | AM Technical Quality: Adequate visualizationStudy Location: Echo | | | LabIndications: CAD JAMUL CORONARY ARTERY 414.01/ I25.10 and | | [...] BARRY Room Number SARAH | | Patient [id number] Date of Study 06/16/2016 Number Visit Number | | [id number] Referring Physician JOSE ARMANDO GARCIA Number | | Date of 1960 Vegetable Inspector LUIS FERNANDO DUARTE Age | | 56 year(s) Interpreting GURJIT TROY | | Placement Secretary SYDNI SINGLETARY, | | Gender Male NurseProcedureType of Study TTE | | procedure: ECHO Complete.Procedure dateDate: 06/16/2016Start: 10:55 AMTechnical Quality: | | Adequate visualizationStudy Location: Echo LabIndications: CAD JAMUL CORONARY ARTERY | | 414.01/ I25.10 and [...] + | [facility] | [address] | [place] | [phone] | | [facility] | | [address] | | | - IMAGING | | [...] | | 2. Coronary artery disease involving [place] coronary artery of | | | [place] heart without angina pectoris I25.10 414.01 ECHO [...] + + | Coronary artery disease involving [place] coronary artery of [place] heart without | | angina pectoris | [...]
--- OUTSIDE RECORDS SUMMARY | ~2019-11-16 | XMS | Encounter Summary ---
Demographics + + + | Address | [address] | | | [place] [address] | + + + | Home Phone [...] Providers + +------+ + | Care Rubber Tile Floor Layer Name | Role | Phone [...] + | 06/23/ | Office | [facility] | Silvia, | Ascending thoracic | | 2016 | Visit | CARDIOLOGY [address] | PARISA Vernon [address] | aortic aneurysm | | | | [place], | [place], | ([facility]) (Primary Dx); | | | | [place] [address] | [place] [address] | Coronary artery | | | | [phone] | [phone] | disease involving | | | | | | [place] coronary | | | | | | artery of [place] | | | | | | [...] in office in 6 months. hgabby, Janeen, NAPHTHA WASHING SYSTEM OPERATOR - 06/23/2016 12:45 PM PDT PATIENT NAME: [...] by mouth every evening 90 tablet 3 [facility] Natural Products (OSTEO [...] 3rd dose, call 911 100 tablet 3 [place]-3 Fatty Acids (SALMON OIL-1000 PO) CAPS, [...] reviewed during visit today primarily from [facility]: LIPID Lab Results Component Value Date [...] bay coronary artery of [place] heart [facility] angina pectoris: A. Normal exercise [...] pain. He is in class I-II of [place] [employer] Associatio n functional class. There are [...] to go back in 3 days to [place] for an attempt of ablation under general [...] this chart may have been created with Optherion voice recognition software. Occasi onal wrong-word or [...] | Monitor | | MD [address] | Interrogation | | | | | [place], | (Primary Dx); | | | | | [place] [address] | Presence of | | | | | [phone] | permanent cardiac | | | | [...] | Monitor | | MD [address] | Interrogation | | | | | [place], | (Primary Dx); | | | | | [place] [address] | Presence of | | | | | [phone] | permanent cardiac | | | | [...] | | | | | | [place] [address] | | | | | | [phone] | | | | | | | [...] the | | | | PDT | [place] coronary | results section. | | | | | artery of [place] | | | | | | [...] MD | | | | | | ([id number]) on 06/23/2016 | | | | | [...]
--- OUTSIDE RECORDS SUMMARY | ~2019-11-16 | XMS | Encounter Summary ---
Demographics + + + | Address | [address] | | | [place] [address] | + + + | Home Phone [...] Providers + +------+ + | Care Warehouse Examiner Name | Role | Phone | [...] 2012 | | CARDIOLOGY [address] | DRY SAND MOLDER [address] | | | | | [place], | [place], [place] | | | | | [place] [address] | [address] | | | | | [phone] | | | +--------+ + + + [...] | Monitor | | MD [address] | Interrogation | | | | | [place], | (Primary Dx); | | | | | [place] [address] | Presence of | | | | | [phone] | permanent cardiac | | | | [...] Interrogation | | | | | [place], | (Primary Dx); | | | | | [place] [address] | Presence of | | | | | [phone] | permanent cardiac | | | | [...] W | | | | | | [place], | | | | | | [place] [address] | | | | | | [phone] | | | | | | | [...] St | [place] | | | [facility] | | [address] | | | - LABORATORY | | [...] | | | LAB | | | [place], | | | | | | External [...]
--- OUTSIDE RECORDS SUMMARY | ~2019-11-16 | XMS | Encounter Summary ---
Demographics + + + | Address | [address] | | | [place] [address] | + + + | Home Phone [...] + +------+ + | Care Customer Service Advisor Name | Role | Phone | [...] | CARDIOLOGY [address] | [address] [employer] | Interrogation | | | | [employer] [place], | [place], | (Primary Dx); | | | | [place] [address] | [place] [address] | Presence of | | | | [phone] | [phone] | permanent cardiac | | | | [...] Interrogation | | | | | [place], | (Primary Dx); | | | | | [place] [address] | Presence of | | | | | [phone] | permanent cardiac | | | | [...] 2019 | Monitor | | [address] [employer] | Interrogation | | | | | [place], | (Primary Dx); | | | | | [place] [address] | Presence of | | | | | [phone] | permanent cardiac | | | | [...] W | | | | | | [employer] [place], | | | | | | [place] [address] | | | | | | [phone] | | | | | | | [...] remote PDF scanned into | | | [facility] for remote interrogation results. Data collected by Kailey Molina | | | MORNOE Pruitt Presenting rhythm: sinus rhythm atrial paced [...]
--- OUTSIDE RECORDS SUMMARY | ~2019-11-16 | XMS | Encounter Summary ---
Demographics + + + | Address | [address] | | | [place] [address] | + + + | Home Phone [...] Providers + +------+ + | Care Drill Grinder Name | Role | Phone | + +------+ + PCP | Unavailable | + +------+ + Encounter Details +--------+ + + + + | Date | Type | Department | Care Team | Description | +--------+ + + + + | 01/17/ | [facility] | [facility] | Jonas Ramos, | | | 2009 | Encounter | MED CTR EMERGENCY | MD [address] | | | | | CENTER [address] | [facility] | | | | | [place] | [place] [address] | | | | | [address] | [phone] | | | | | [phone] | | | +--------+ + + + [...] Interrogation | | | | | [place], | (Primary Dx); | | | | | [place] [address] | Presence of | | | | | [phone] | permanent cardiac | | | | [...] Interrogation | | | | | [place], | (Primary Dx); | | | | | [place] [address] | Presence of | | | | | [phone] | permanent cardiac | | | | [...] W | | | | | | [place], | | | | | | [place] [address] | | | | | | [phone] | | | | | | | | +--------+ + + + + documented as of this encounter Visit Diagnoses Not on filedocumented in this encounter"
--- OUTSIDE RECORDS SUMMARY | ~2019-11-16 | XMS | Encounter Summary ---
Demographics + + + | Address | [address] | | | [place] [address] | + + + | Home Phone [...] Team Providers + +------+ + | Care Overhead Worker Name | Role | Phone | + +------+ + | Michael Amanda DO | PCP | | + +------+ + Encounter Details +--------+ + + + + | Date | Type | Department | Care Team | Description | +--------+ + + + + | 07/25/ | Abstract | [facility] | Michael Amanda, | | | 2013 | | [facility] | DO [address] | | | | | [address] | [place] | | | | | [place] | [address] | | | | | [address] | | | | | | [phone] | | | +--------+ + + + [...] 2019 | Monitor | | [address] | Interrogation | | | | | [place], | (Primary Dx); | | | | | [place] [address] | Presence of | | | | | [phone] | permanent cardiac | | | | [...] Dx); | | | | | [place] [address] | Presence of | | | | | [phone] | permanent cardiac | | | | [...] W | | | | | | [place], | | | | | | [place] [address] | | | | | | [phone] | | | | | | | | +--------+ + + + + documented as of this encounter Visit Diagnoses Not on filedocumented in this encounter"
--- OUTSIDE RECORDS SUMMARY | ~2019-11-16 | XMS | Encounter Summary ---
Demographics + + + | Address | [address] | | | [place] [address] | + + + | Home Phone [...] + + | 04/22/ | Hospital | [facility] | | | | 2011 | Encounter | MED CTR XRAY [address] | | | | | | [place] | | | | | | [place] [address] | | | | | | [phone] | | | +--------+ + + + [...] + + + +---------+ + + | [place]-3 Fatty | CAPS, one capsule by | [...] Interrogation | | | | | [facility] | (Primary Dx); | | | | | [place] [address] | Presence of | | | | | [phone] | permanent cardiac | | | | [...] | 2018 | Monitor | | [address] [place] | Interrogation | | | | | [place], | (Primary Dx); | | | | | [place] [address] | Presence of | | | | | [phone] | permanent cardiac | | | | [...] | | | | | | [place], | | | | | | [place] [address] | | | | | | [phone] | | | | | | | [...] | [facility] Diagnostic Imaging Department | [facility] | | [address] [facility] | [facility] | | CT MYELOGRAM LUMBAR SPINE, [...] Transcribed Date/Time: | | | 04/23/2012 11:06 Plane Tableman: <Electronically Signed | | | by Jama Solis MD> 04/24/12 0730 | | + + + + + | Procedure Note | + + | Kevin, Rad Conversion - 12/29/2013 5:27 PM [facility] | | Diagnostic Imaging Department [address] [place] [address] | | CT MYELOGRAM LUMBAR SPINE, 04/22/2012 [...] <Electronically Signed by Jama Solis MD> 04/24/12 9806 | | | |L3-4: Minimal broad-based disk [...] 10:54 | |Transcribed Date/Time: 04/23/2012 11:06 | |Plane Tableman: | |<Electronically Signed by Jama Solis MD> 04/24/12 0730 | + + + +---------+ + + | Performing | Address | City/State/Zipcode | Phone Number | | Organization | | | | + +---------+ + + | [place] | | | | | [facility] | | | | + +---------+ + + CT Thoracic Spine w Contrast (04/22/2012 1:12 PM PDT) + + | Specimen | + + | | + + + + + | Narrative | Performed At | + + + | [facility] Diagnostic Imaging Department | [facility] | | [address] [facility] | [facility] | | THORACIC CT MYELOGRAM | [...] Transcribed Date/Time: 04/22/2012 17:32 | | | Plane Tableman: ARNOLD <Electronically Signed by Jama Mason | | | MD Will> 04/23/12 1039 | | + + + + + | Procedure Note | + + | Kalpesh Brown Conversion - 12/29/2013 5:27 PM [facility] | | Diagnostic Imaging Department [address] [facility] [place] | | THORACIC CT MYELOGRAM CLINICAL HISTORY: [...] RANGE FOR AGE. PLEASE SEE DETAILS CAROLYN Vigil | | | |Dictated Date/Time: 04/22/2012 16:56 | |Transcribed Date/Time: 04/22/2012 17:32 | |Plane Tableman: | |<Electronically Signed by Jama Solis MD> [...] | [facility] Diagnostic Imaging Department | [facility] | | [address] [facility] | [facility] | | CT MYELOGRAM CERVICAL SPINE [...] Similar study from | | | 09/02/2009, [facility]. FINDINGS: Firm bony ankylosis | | [...] Transcribed Date/Time: | | | 04/22/2012 17:25 Plane Tableman: <Electronically Signed | | | by Jama Solis MD> 04/23/12 1039 | | + + + + + | Procedure Note | + + | Kevin, Rad Conversion - 12/29/2013 5:27 PM [facility] | | Diagnostic Imaging Department | | [address] [facility] [place] | | | | | | [...] | | COMPARISON: Similar study from 09/02/2009, [facility]. | | | | FINDINGS: Firm [...] | Transcribed Date/Time: 04/22/2012 17:25 | | Plane Tableman: | | <Electronically Signed by Jama Solis MD> 04/23/12 1039 | + + + +---------+ + + | Performing | Address | City[facility] | Phone Number | | Organization | | | | + +---------+ + + | [place] [place] | | | | | [facility] | | | | + +---------+ + + [place] Lumbar Puncture (04/22/2012 1:12 PM PDT) + + | Specimen | + + | | + + + + + | Narrative | Performed At | + + + | [facility] Diagnostic Imaging Department | [facility] | | [address] [facility] | [facility] | | LUMBAR MYELOGRAM INJECTION [...] Transcribed Date/Time: 04/22/2012 16:36 | | | Plane Tableman: <Electronically Signed by Jama Mason | | | MD Will> 04/23/12 1039 | | + + + + + | Procedure Note | + + | Kevin, Rad Conversion - 12/29/2013 5:27 PM [facility] | | Diagnostic Imaging Department [address] [place] [address] | | LUMBAR MYELOGRAM INJECTION FOR CT [...] 15:51 | |Transcribed Date/Time: 04/22/2012 16:36 | |Plane Tableman: | |<Electronically Signed by Jama Solis MD> 04/23/12 1039 | + + + +---------+ + + | Performing | Address | City/State/Zipcode | Phone Number | | Organization | | | | + +---------+ + + | [place] | | | | | [facility] | | | | + +---------+ + + documented in this encounter Visit Diagnoses Not on filedocumented in this encounter"
--- OUTSIDE RECORDS SUMMARY | ~2019-11-16 | XMS | Encounter Summary ---
Demographics + + + | Address | [address] | | | [place] [address] | + + + | Home Phone [...] + + | 04/07/ | Telephone | [facility] | Matthew Uriarte | Medication Orders | | 2019 | | [address] | MD Tawanna [address] | (Medication ) | | | | [place], [place] | [place], [place] | | | | | [address] | [address] | | | | | [phone] | | | +--------+ + + + [...] Interrogation | | | | | [place], | (Primary Dx); | | | | | [place] [address] | Presence of | | | | | [phone] | permanent cardiac | | | | [...] 2018 | Monitor | | [address] | Interrogation | | | | | [place], | (Primary Dx); | | | | | [place] [address] | Presence of | | | | | [phone] | permanent cardiac | | | | [...] | | | | | | [place] [address] | | | | | | [phone] | | | | | | | | +--------+ + + + + documented as of this encounter Visit Diagnoses Not on filedocumented in this encounter"
--- OUTSIDE RECORDS SUMMARY | ~2019-11-16 | XMS | Encounter Summary ---
Demographics + + + | Address | [address] | | | [place] [address] | + + + | Home Phone [...] Providers + +------+ + | Care Rail Maintenance Worker Name | Role | Phone [...] | CARDIOLOGY [address] | (Primary Dx); | | | | [place], | [place], | Tachycardia; | | | | [place] [address] | [place] [address] | Coronary artery | | | | [phone] | [phone] | disease involving | | | | | | [place] coronary | | | | | | artery of [place] | | | | | | heart [...] Dx); | | | | | [place] [address] | Presence of | | | | | [phone] | permanent cardiac | | | | [...] | Monitor | | MD [address] | Interrogation | | | | | [place], | (Primary Dx); | | | | | [place] [address] | Presence of | | | | | [phone] | permanent cardiac | | | | [...] W | | | | | | [place], | | | | | | [place] [address] | | | | | | [phone] | | | | | | | [...] involving | | | | | | [place] coronary | | | | | | artery of [place] | | | | | | heart [...] MD | | | | | | ([id number]) on 06/29/2018 | | | | | [...] + + | Coronary artery disease involving [place] coronary artery of [place] heart without | | angina pectoris | + + | Hypertension, unspecified type | + + documented in this encounter"
--- OUTSIDE RECORDS SUMMARY | ~2019-11-16 | XMS | Encounter Summary ---
Demographics + + + | Address | [address] | | | [place] [address] | + + + | Home Phone [...] + +------+ + | Care Mental Health Therapist Name | Role | Phone | + +------+ + PCP | Unavailable | + +------+ + Encounter Details +--------+ + + + + | Date | Type | Department | Care Team | Description | +--------+ + + + + | 05/24/ | Hospital | [facility] | Chi Fang | Unspecified Chest | | 2008 - | Encounter | [facility] | MD Kelsey [address] | Pain | | | | CLINICAL DECISION | CHRISTOPH HERNANDEZ | | | 05/25/ | | [address] | [address] | | | 2008 | | [place], [place] | [phone] | | | | | [address] | | | | | | [phone] | | | +--------+ + + + [...] | Monitor | | MD [address] | Interrogation | | | | | [place], | (Primary Dx); | | | | | [place] [address] | Presence of | | | | | [phone] | permanent cardiac | | | | [...] Interrogation | | | | | [place], | (Primary Dx); | | | | | [place] [address] | Presence of | | | | | [phone] | permanent cardiac | | | | [...] W | | | | | | [place], | | | | | | [place] [address] | | | | | | [phone] | | | | | | | [...] Performed At | + + + | [id number] | | | Page 1 RADIOLOGY | | | [facility] [address]/ | | | [facility] | | | CENTER NAME: [place] [address] | | | | | | | | | DATE OF : 1960 ORDER NUMBER: | | | [id number] EXAM DATE/TIME: 05/25/2009 08:00 A ORDERING PHYSICIAN: [...] | | administration of 14.9 mCi of czorparrtg-84j-kepjbfw Myoview. Stress | | | images postinjection [...] | | A P | | | TSG/earlene/[id number]/ cc: MD FEMI FOSS, | | | MD AMY SULLIVAN, DO | | + + + + + | Procedure Note | + + | Kalpesh Brown - 07/17/2019 2:13 AM PDT | | [id number] Page 1 | | RADIOLOGY CDU 65883/ | | OPO | | [facility] NAME: PINA GAY | | [place] [address] | | | | DATE OF : 1960 | | | | ORDER NUMBER: [id number] | | EXAM DATE/TIME: 05/25/2009 08:00 A [...] administration of 14.9 mCi | | of zzaqmomwqc-85i-faejdlv Myoview. Stress images postinjection of 47.7 | [...] | A | | P | | TSG/dc/[id number]/ | | cc: ANGELA MARADIAGA MD | | FEMI MARIE MD | | CHI FANG MD | | AMY BANEGAS DO | + + ECHO Complete (05/25/2009 7:50 AM PDT) + + | Specimen | + + | | + + + + + | Narrative | Performed At | + + + | [id number] | | | Page 1 ECHO [facility] NAME: | | | [place] [address] MEDICAL RECORD #: | | | [id number] | | | DATE OF : 1960 ORDER | | | NUMBER: [id number] EXAM DATE/TIME: 05/25/2009 07:34 PERFORMING | | | PHYSICIAN: Edwardo Gonzalez MD ORDER DETAIL: 2070 / KAT ORDER | | | DESCRIPTION: ECHO CARDIAC [...] Excursion: | | | 1.89 cm E-F [place]: 0.08 m/s HR: 43.51 BPM AV maxP.11 [...] | | | 0.33 m/s TV Dec [place]: 1.73 m/s2 TV Dec Time: 344.24 ms TV | | | E Bravo: 0.59 m/s TV E/A Ratio: 1.80 TV maxP.40 mmHg TV | | | meanP.44 mmHg TV Vmax: 0.59 m/s TV Vmean: 0.30 m/s TV | | | VTI: 22.88 cm Block Engraver: ANTHONY Authenticated by: Edwardo Tee | | | Carlos WINKLER Report Date/Time: 05-25-2009 10:19:52 | | + + + + + | Procedure Note | + + | Kevin Rad Conversion - 07/17/2019 2:13 AM PDT [id number] | | Page [address] [place] [address] NAME: [place] | | [address] : ACCOUNT #: | | [id number]: DATE OF : 1960ORDER NUMBER: | | [id number] DATE/TIME: 05/25/2009 07:34PERFORMING PHYSICIAN: Edwardo Gonzalez | [...] mlLAESV Index (A-L): 26.03 ml/m2LAAs A2C: 14.93 [id number] A-L | | A2C: 44.50 mlLALs A2C: 4.25 cmLAAs A4C: 18.42 [id number] A-L A4C: 55.79 mlLALs | | A4C: 5.16 cmAo Diam: 3.91 cmAV Cusp: 2.23 cmLA Diam: 3.79 cmLA/Ao: 0.96%FS: | | 43.37 %EDV(Teich): 146.19 mlEF(Teich): 73.99 %ESV(Teich): 38.01 mlIVSd: 1.57 | | cmIVSs: 1.79 cmLVIDd: 5.48 cmLVIDs: 3.10 cmLVPWd: 1.32 cmLVPWs: 1.79 | | cmSV(Teich): 108.18 mlD-E Excursion: 1.89 cmE-F [place]: 0.08 m/sHR: 43.51 BPMAV | | maxP.11 mmHgAV meanP.33 mmHgAV Vmax: 1.74 m/Zabrina Vmean: 1.06 m/Zabrina VTI: | | 35.51 cmAVA Vmax: 2.77 cm2AVA (VTI): 2.54 jl2BYXT Dopp: 3.00 l/owji5XMMB Dopp: | | 6.33 l/minHR: 70.25 BPMLVOT maxP.78 mmHgLVOT meanP.02 mmHgLVSI Dopp: | | 42.76 ml/m2LVSV Dopp: 90.23 mlLVOT Vmax: 1.30 m/sLVOT Vmean: 0.80 m/sLVOT VTI: | | 24.35 cmMV A Bravo: 0.70 m/sMV DecT: 242.46 msMV E Bravo: 0.91 m/sMV E/A Ratio: | | 1.31MV maxP.40 mmHgMV meanP.82 mmHgMV Vmax: 0.92 m/sMV Vmean: 0.37 m/sMV | | VTI: 26.47 cmMVA (VTI): 3.40 lt9Tvzclc e': 0.08 m/sSeptal E/e': 11.24HR: | | 60.55 BPMPV maxP.04 mmHgPV meanP.39 mmHgPV Vmax: 0.87 m/sPV Vmean: 0.55 | | m/sPV VTI: 19.09 cmRAP: 5 mmHgRVSP: 21.72 mmHgTR maxP.72 mmHgTR Vmax: | | 2.04 m/sTV A Bravo: 0.33 m/sTV Dec [place]: 1.73 m/s2TV Dec Time: 344.24 msTV E Bravo: | | 0.59 m/sTV E/A Ratio: 1.80TV maxP.40 mmHgTV meanP.44 mmHgTV Vmax: 0.59 | | m/sTV Vmean: 0.30 m/sTV VTI: 22.88 cm Block Engraver: EMERYuthenticated by: Edwardo Tee | | Carlos LEONARDOeprobert Date/Time: 05-25-2009 10:19:52 | | | |IVC: [...] | |D-E Excursion: 1.89 cm | |E-F [place]: 0.08 m/s | |HR: 43.51 BPM | [...] A Bravo: 0.33 m/s | |TV Dec [place]: 1.73 m/s2 | |TV Dec Time: 344.24 ms | |TV E Bravo: 0.59 m/s | |TV E/A Ratio: 1.80 | |TV maxP.40 mmHg | |TV meanP.44 mmHg | |TV Vmax: 0.59 m/s | |TV Vmean: 0.30 m/s | |TV VTI: 22.88 cm | | | |Block Engraver: KVW | |Authenticated by: Edwardo Gonzalez MD | |Report Date/Time: 05-25-2009 10:19:52 | + + CT Head wo Contrast (05/24/2009 12:58 PM PDT) + + | Specimen | + + | | + + + + + | Narrative | Performed At | + + + | [id number] | | | Page 1 RADIOLOGY | | | [facility] [address]/ | | | [facility] MEDICAL | | | CENTER NAME: [place] [address] | | | | | | | | | DATE OF : 1960 ORDER NUMBER: | | | [id number] EXAM DATE/TIME: 05/24/2009 12:47 P ORDERING PHYSICIAN: [...] | | asymmetrically dense vessel about the [place] of [place]. No | | | hydrocephalus. [...] 08:45 P P P | | | [facility]/tp/[id number]/ cc: MD ANGELA AVENDAÑO MD | | | MD AMY HAM DO | | + + + + + | Procedure Note | + + | Kalpesh Brown - 07/17/2019 2:13 AM PDT | | [id number] Page 1 | | RADIOLOGY CDU 47869/ | | OPO | | [facility] NAME: PINA GAY | | [place] [address] | | | | DATE OF : 1960 | | | | ORDER NUMBER: [id number] | | EXAM DATE/TIME: 05/24/2009 12:47 P [...] is no asymmetrically dense vessel about the [place] of [place]. No | | hydrocephalus. Some [...] | P | | P | | [facility]/tp/[id number]/ | | cc: VINAY HILL MD | | ANGELA MARADIAGA MD | | FEMI MARIE MD | | AMY BANEGAS DO | + + XR Chest 2 Vws (05/24/2009 11:31 AM PDT) + + | Specimen | + + | | + + + + + | Narrative | Performed At | + + + | [id number] | | | Page 1 RADIOLOGY | | | [facility] [address]/ | | | [facility] | | | CENTER NAME: [place] [address] | | | | | | | | | DATE OF : 1960 ORDER NUMBER: | | | [id number] EXAM DATE/TIME: 05/24/2009 11:19 A ORDERING PHYSICIAN: | | | VINAY IHLL ORDER DETAIL: 3500 / / HDI EXAM DESCRIPTION: | | [...] DT: | | | 05/24/2009 05:38 P TSG/cf/[id number]/ cc: VINAY HILL MD | | | MD FEMI FOSS MD AMY | | | P JACQUELINO, DO | | + + + + + | Procedure Note | + + | Kevin, Rad Conversion - 07/17/2019 2:13 AM PDT | | [id number] Page 1 | | RADIOLOGY CDU 39495/ | | OPO | | [facility] NAME: PINA GAY | | [place] [address] | | | | DATE OF : 1960 | | | | ORDER NUMBER: [id number] | | EXAM DATE/TIME: 05/24/2009 11:19 A [...] | P | | P | | [facility]//[id number]/ | | cc: VINAY HILL MD | | ANGELA MARADIAGA MD | | FEMI MARIE MD | | AMY BANEGAS DO | + + documented in this encounter Visit Diagnoses + + | Diagnosis | + + | Chest pain, unspecified | + + documented in this encounter"
--- OUTSIDE RECORDS SUMMARY | ~2019-11-16 | XMS | Encounter Summary ---
Demographics + + + | Address | [address] | | | [place] [address] | + + + | Home Phone [...] Providers + +------+ + | Care Charge Master Specialist Name | Role | Phone | [...] | | | CENTER [address] | [address] | | | | | [place] | [place] | | | | | [address] | [address] | | | | | [phone] | | | +--------+ + + + [...] + + + +---------+ + + | Armour-3 Fatty | CAPS, one capsule by | [...] | | | | | | | [place] coronary | | | | | | | artery of [place] | | | | | | | [...] Dx); | | | | | [place] [address] | Presence of | | | | | [phone] | permanent cardiac | | | | [...] Interrogation | | | | | [place], | (Primary Dx); | | | | | [place] [address] | Presence of | | | | | [phone] | permanent cardiac | | | | [...] | | | | | | [place], | | | | | | [place] [address] | | | | | | [phone] | | | | | | | [...] | | | Comment:Reference | | [facility] | | | | Ranges: 0.00-0.06 [...] [address] | [place] | [phone] | | [facility] | | [address] | | | - LABORATORY | | [...] [address] | [place] | [phone] | | [facility] | | [address] | | | - LABORATORY | | [...] in | 12 - 53 U/L | [facility] | | | | use as of January 18, | | [facility] | | | | 2018. Check reference [...] [address] | [place] | [phone] | | [facility] | | [address] | | | - LABORATORY | | [...] 0.92 | 0.70 - 1.30 | [facility] | | | | | mg/dL | [facility] | | | | | | MEDICAL | | | | | | CENTER - | | | | | | LABORATORY | | + + + + + + | eGFR if not | >60Comment: GLOMERULAR | >=60 | [facility] | | | | FILTRATION | mL/min/1.73m2 | [facility] | | | [place] | RATE,ESTIMATED | | MEDICAL | | | | mL/min/1.13c5Zutn than | | CENTER - | | [...] [address] | [place] | [phone] | | [facility] | | [address] | | | - LABORATORY | | | | + + + + + CBC with Differential (06/02/2019 7:07 PM PDT) + +-------+ + + + | Component | Value | Ref Range | Performed | Pathologist | | | | | At | Signature | + +-------+ + + + | WBC | 6.3 | 4.0 - 11.0 K/uL | TR[facility] [...] | [address] | [place] | [phone] | | [facility] | | [address] | | | - LABORATORY | | | | + + + + + B Type Natriuretic Peptide (06/02/2019 7:07 PM PDT) + +-------+ + + + | Component | Value | Ref Range | Performed | Pathologist | | | | | At | Signature | + +-------+ + + + | BNP | 48 | <100 pg/mL | JACKRA[facility]LE | | | | | [...] [address] | [place] | [phone] | | [facility] | | [address] | | | - LABORATORY | | [...] | | | | ANGELA MARADIAGA MD ([id number]) | | | | | | on [...] | | | | Starting 06/02/19 at 2031, | | | | | | | Patient Address: [address] [place] [address] | | | | | | | [place] [address], | | | | | | + + + +------+---+---+ +---+---+ | | | +---+---+ documented in this encounter
--- OUTSIDE RECORDS SUMMARY | ~2019-11-16 | XMS | Encounter Summary ---
Demographics + + + | Address | [address] [place] [address] | | | [place] [address] | + + + | Home Phone [...] [place] | | | | | [address] | | + + + + + Care Team Providers + +------+ + | Care Calciminer Name | Role | Phone | + [...] | | 2019 | | Center at [facility] [address] | Gastroenterology | Gastroenterology | | | | ILA Tremayne Crane | | | | | | Mailcode: [place] | | | | | | [facility] and | | | | | | [place] [address] | | | | | | [place], [place] | | | | | | [address] | | | | | | [phone] | | | +--------+ + + + [...]
--- OUTSIDE RECORDS SUMMARY | ~2019-11-16 | XMS | Encounter Summary ---
Demographics + + + | Address | [address] | | | [place] [address] | + + + | Home Phone [...] Providers + +------+ + | Care Pharmacy Grad Intern Name | Role | Phone | [...] [address] | | | | | [place], | [place], | | | | | [place] [address] | [place] [address] | | | | | [phone] | [phone] | | | | | | | [...] Interrogation | | | | | [place], | (Primary Dx); | | | | | [place] [address] | Presence of | | | | | [phone] | permanent cardiac | | | | [...] Interrogation | | | | | [place], | (Primary Dx); | | | | | [place] [address] | Presence of | | | | | [phone] | permanent cardiac | | | | [...] | | | | | | [place] [address] | | | | | | [phone] | | | | | | | [...] Comment | + + | [facility] | + + + +---------+ + + [...] Comment | + + | [facility] | + + + +---------+ + + [...] Comment | + + | [facility] | + + + +---------+ + + [...]
--- OUTSIDE RECORDS SUMMARY | ~2019-11-16 | XMS | Encounter Summary ---
Demographics + + + | Address | [address] | | | [place] [address] | + + + | Home Phone [...] Team Providers + +------+ + | Care Lubrication Supervisor Name | Role | Phone | + +------+ + PCP | Unavailable | + +------+ + Encounter Details +--------+ + + + + | Date | Type | Department | Care Team | Description | +--------+ + + + + | 01/21/ | Emergency | [facility] | Kirill Dominique | Unspecified Chest | | 2009 | | MEDICAL CENTER | MD Jonas [address] | Pain | | | | EMERGENCY CENTER | [address] [place] | | | | | [address] | [address] | | | | | [place] | [phone] | | | | | [address] | | | | | | [phone] | | | +--------+ + + + [...] 2019 | Monitor | | MD [address] | Interrogation | | | | | [place], | (Primary Dx); | | | | | [place] [address] | Presence of | | | | | [phone] | permanent cardiac | | | | [...] Interrogation | | | | | [place], | (Primary Dx); | | | | | [place] [address] | Presence of | | | | | [phone] | permanent cardiac | | | | [...] | | | | | | [place] [address] | | | | | | [phone] | | | | | | | | +--------+ + + + + documented as of this encounter Visit Diagnoses + + | Diagnosis | + + | Chest pain, unspecified | + + documented in this encounter"
--- OUTSIDE RECORDS SUMMARY | ~2019-11-16 | XMS | Encounter Summary ---
Demographics + + + | Address | [address] | | | [place] [address] | + + + | Home Phone [...] Team Providers + +------+ + | Care Cab Station Attendant Name | Role | Phone | + +------+ + | iMchael Amanda DO | PCP | | + +------+ + Reason for Visit +--------+ + | Reason | Comments | +--------+ + | Other | unable to take the isosorbide | +--------+ + Encounter Details +--------+ + + + + | Date | Type | Department | Care Team | Description | +--------+ + + + + | 02/01/ | Telephone | [facility] | Silvia, | Other (unable to | | 2013 | | CARDIOLOGY [address] | [place] [address] | take the isosorbide) | | | | [place], | [place], | | | | | [place] [address] | [place] [address] | | | | | [phone] | [phone] | | | | | | | [...] Interrogation | | | | | [place], | (Primary Dx); | | | | | [place] [address] | Presence of | | | | | [phone] | permanent cardiac | | | | [...] Interrogation | | | | | [place], | (Primary Dx); | | | | | [place] [address] | Presence of | | | | | [phone] | permanent cardiac | | | | [...] W | | | | | | [place], | | | | | | [place] [address] | | | | | | [phone] | | | | | | | | +--------+ + + + + documented as of this encounter Visit Diagnoses + + | Diagnosis | + + | Coronary artery disease - Primary Coronary atherosclerosis of unspecified type of | | vessel, red devil or graft | + + | Hypertension Unspecified essential hypertension | + + | Hyperlipidemia Other and unspecified hyperlipidemia | + + documented in this encounter"
--- OUTSIDE RECORDS SUMMARY | ~2019-11-16 | XMS | Encounter Summary ---
Demographics + + + | Address | [address] | | | [place] [address] | + + + | Home Phone [...] Team Providers + +------+ + | Care Growth Hacker Name | Role | Phone | + [...] [place] | | | | | | [address] | | | | | | [phone] | | | +--------+ + + + [...] | 11/20/ | Implant | Cardiology | oJshDaljit parkinson, | Remote Device | | 2018 | Monitor | | MD [address] | Interrogation | | | | | [place], | (Primary Dx); | | | | | [place] [address] | Presence of | | | | | [phone] | permanent cardiac | | | | [...] | Monitor | | MD [address] | Interrogation | | | | | [place], | (Primary Dx); | | | | | [place] [address] | Presence of | | | | | [phone] | permanent cardiac | | | | [...] | | | | | | [place] [address] | | | | | | [phone] | | | | | | | | +--------+ + + + + documented as of this encounter Visit Diagnoses Not on filedocumented in this encounter"
--- OUTSIDE RECORDS SUMMARY | ~2019-11-16 | XMS | Encounter Summary ---
Demographics + + + | Address | [address] | | | [place] [address] | + + + | Home Phone [...] Providers + +------+ + | Care Water Proofer Name | Role | Phone | + [...] | | CARDIOLOGY [address] | Janeen BIODIESEL PRODUCT MANAGER [address] | | | | | [place], | [place], | | | | | [place] [address] | [place] [address] | | | | | [phone] | [phone] | | | | | | | [...] 2018 | Monitor | | MD [address] [place] | Interrogation | | | | | [place], | (Primary Dx); | | | | | [place] [address] | Presence of | | | | | [phone] | permanent cardiac | | | | [...] Dx); | | | | | [place] [address] | Presence of | | | | | [phone] | permanent cardiac | | | | [...] | | | | | | [place] [address] | | | | | | [phone] | | | | | | | | +--------+ + + + + documented as of this encounter Visit Diagnoses Not on filedocumented in this encounter"
--- OUTSIDE RECORDS SUMMARY | ~2019-11-16 | XMS | Encounter Summary ---
Demographics + + + | Address | [address] | | | [place] [address] | + + + | Home Phone [...] Providers + +------+ + | Care Data Operations Manager Name | Role | Phone [...] | | | | CENTER [address] [place] | [address] [place] | | | | | [place], [place] | [place] [address] | | | | | [address] | [phone] | | | | | [phone] | | | +--------+ + + + [...] sent through Care Everywhere.Diarrhea, Unkno wn Cause (Romansh)documented in this encounter Medications at Time of [...] + + + +---------+ + + | [place]-3 Fatty | CAPS, one capsule by | [...] | | | | | | [place] coronary | | | | | | | artery of [place] | | | | | | | [...] | Monitor | | MD [address] [place] | Interrogation | | | | | [place], | (Primary Dx); | | | | | [place] [address] | Presence of | | | | | [phone] | permanent cardiac | | | | [...] | Monitor | | MD [address] [place] | Interrogation | | | | | [place], | (Primary Dx); | | | | | [place] [address] | Presence of | | | | | [phone] | permanent cardiac | | | | [...] | | | | | | [place], | | | | | | [place] [address] | | | | | | [phone] | | | | | | | [...] W?MRN: | | | | | | [id number] | | | [id number] | | | riteri | | | [...] | | | St. | | | [place] | | | y | | | [...] | | | St. | | | [place] | | | y | | | [...] | | | St. | | | [place] | | | y H. | | [...] | | | St. | | | [place] | | | y H. | | [...] | | | M.D. | | | Machine Coremaker | | | al | | | [...] | | | ent/60 | | | [id number] | | | [phone] | | | [...] + | [facility] | [address] [place] [address] | [place] | [phone] | | [facility] | | [address] | | | - LABORATORY | | [...] [address] | [place] | [phone] | | [facility] | | [address] | | | - LABORATORY | | [...] [address] | [place] | [phone] | | [facility] | | [address] | | | - LABORATORY | | [...] [address] | [place] | [phone] | | [facility] | | [address] | | | - LABORATORY | | [...] + | [facility] | [address] | [place] | [phone] | | [facility] | | [address] | | | - LABORATORY | | [...] | [place] | | | [place]AN | RATE,ESTIMATED | | MEDICAL | | | | mL/min/1.13f3Ttco than | | CENTER - | | [...] + | [facility] | [address] | [place] | [phone] | | [facility] | | [address] | | | - LABORATORY | | [...] + | [facility] | [address] | [place] | [phone] | | [facility] | | [address] | | | - LABORATORY | | [...] - 1.030 | [facility] | | | [place] | | | [facility] [place] | | [...] [address] | [place] | [phone] | | [facility] | | [address] | | | - LABORATORY | | [...]
--- OUTSIDE RECORDS SUMMARY | ~2019-11-16 | XMS | Encounter Summary ---
Demographics + + + | Address | [address] | | | [place] [address] | + + + | Home Phone [...] Team Providers + +------+ + | Care Ditch Digger Name | Role | Phone | [...] [place] | | | | | | [address] | | | | | | [phone] | | | | | | | [...] 2019 | Monitor | | MD [address] | Interrogation | | | | | [facility], | (Primary Dx); | | | | | [place] [address] | Presence of | | | | | [phone] | permanent cardiac | | | | [...] Dx); | | | | | [place] [address] | Presence of | | | | | [phone] | permanent cardiac | | | | [...] | | | | | | [place] [address] | | | | | | [phone] | | | | | | | | +--------+ + + + + documented as of this encounter Visit Diagnoses Not on filedocumented in this encounter"
--- OUTSIDE RECORDS SUMMARY | ~2019-11-16 | XMS | Clinical Summary ---
Demographics + + + | Address | [address] | | | [place] [address] | + + + | Home Phone | | + + + | Preferred Language | Unknown | + + + | Marital Status | | + + + | Hinduism Affiliation | 1013 | + + + | Race | Unknown | + + + | Ethnic Group | Unknown | + + + Author + + + | Author | [facility] (Historical as of | | | 07-08-19) | + + + | Organization | [facility] (Historical as of | | | 07-08-19) [...] Providers + +------+ + | Care Network Systems Administrator Name | Role | [...] + | AUTO INSURANCE | AUTO | [id number] | | | | | | INSURA | | | | | | | NCE | | | | | | | GENERI | | | | | | | C | | | | | + +--------+ +------+-------+ + | AUTO INSURANCE | AUTO | [id number] | | | | | | INSURA | [id number] | | | | | | NCE | | | | | | | GENERI | | | | | | | C | | | | | + +--------+ +------+-------+ + | MEDICARE | MEDICA | [id number] | | | [address] | | | RE | | | | [place], [place] [address] | | | IP-OP | | | | | + +--------+ +------+-------+ + | [facility] | [place] | [id number] | | | | | | | [...] | Self | [birth year] | Home: | [address] | | | al/Fam | | [address] | [address] | [address] [place], [place] | | | roxanne | | | [address] | [address] | + +--------+ +--------+ + + | AMILCAR GAY | Third | Self | [birth year] | Home: | [address] | | | [address] | | [address] | +- | [place], [place] | | | [place] | | | [phone] | [address] | | | ity | | | | | + +--------+ +--------+ + + | AMILCAR GAY | Third | Self | [birth year] | Home: | [address] | | | [place] | | 1960 | +- | [place], [place] | | | [place] | | | [phone] | [phone] | | | ity | | | | | + +--------+ +--------+ + +
--- OUTSIDE RECORDS SUMMARY | ~2019-11-16 | XMS | Encounter Summary ---
Demographics + + + | Address | [address] | | | [place] [address] | + + + | Home Phone [...] Team Providers + +------+ + | Care Network/Telecom Engineer Name | Role | Phone | [...] [place] | | | | | | [address] | | | | | | [phone] | | | +--------+ + + + [...] + + + +---------+ + + | Cottonwood-3 Fatty | CAPS, one capsule by | [...] Interrogation | | | | | [place], | (Primary Dx); | | | | | [place] [address] | Presence of | | | | | [phone] | permanent cardiac | | | | [...] 2018 | Monitor | | [address] | Interrogation | | | | | [place], | (Primary Dx); | | | | | [place] [address] | Presence of | | | | | [phone] | permanent cardiac | | | | [...] | | | | | | [place], | | | | | | [place] [address] | | | | | | [phone] | | | | | | | | +--------+ + + + + documented as of this encounter Visit Diagnoses + + | Diagnosis | + + | Patient left after triage - Primary | + + documented in this encounter
--- OUTSIDE RECORDS SUMMARY | ~2019-11-16 | XMS | Encounter Summary ---
Demographics + + + | Address | [address] | | | [place] [address] | + + + | Home Phone [...] Team Providers + +------+ + | Care Accreditation Specialist Name | Role | Phone | [...] Provider Unknown | | | | | [place], [place] | [phone] | | | | | [address] | | | | | | [phone] | | | +--------+ + + + [...] + + + +---------+ + + | Huntington-3 Fatty | CAPS, one capsule by | [...] Dx); | | | | | [place] [address] | Presence of | | | | | [phone] | permanent cardiac | | | | [...] Interrogation | | | | | [place], | (Primary Dx); | | | | | [place] [address] | Presence of | | | | | [phone] | permanent cardiac | | | | [...] | | | | | | [place] [address] | | | | | | [phone] | | | | | | | [...]
--- OUTSIDE RECORDS SUMMARY | ~2019-11-16 | XMS | Encounter Summary ---
Demographics + + + | Address | [address] | | | [place] [address] | + + + | Home Phone [...] + + | 01/25/ | Office | [facility] | Daljit Singletary, | Other chest pain | | 2012 | Visit | CARDIOLOGY [address] | [address] | (Primary Dx); PVC's | | | | [place], | [place], | (premature | | | | [place] [address] | [place] [address] | ventricular | | | | [phone] | [phone] | contractions) | | | | | [...] note, lorraine painting has appointment to see tissue specialist for PVCs ablations consultation on January [...] tablet Take 1,000 mg by mouth Daily. Ackerman-3 Fatty Acids (SALMON OIL-1000 PO) CAPS, one [...] tablet Take 1,000 mg by mouth Daily. Ackerman-3 Fatty Acids (SALMON OIL-1000 PO) CAPS, one [...] | | | | | [place], | (Primary Dx); | | | | | [place] [address] | Presence of | | | | | [phone] | permanent cardiac | | | | [...] | | | | | [place], | (Primary Dx); | | | | | [place] [address] | Presence of | | | | | [phone] | permanent cardiac | | | | [...] | | | | | | [place] [address] | | | | | | [phone] | | | | | | | [...]
--- OUTSIDE RECORDS SUMMARY | ~2019-11-16 | XMS | Encounter Summary ---
Demographics + + + | Address | [address] | | | [place] [address] | + + + | Home Phone [...] Providers + +------+ + | Care Rn Child Name | Role | Phone | + [...] + + | 07/01/ | Hospital | [facility] | Scotty Galdamez, | DDD (degenerative | | 2018 | Encounter | MED CTR XRAY [address] | OUTSOLE CEMENTER MACHINE [address] | disc disease), | | | | [place] | [address] | lumbar; Chronic | | | | [place] [address] | [place] [address] | left-sided low back | | | | [phone] | [phone] | pain with left-sided | | | [...] + + + +---------+ + + | Reydon-3 Fatty | CAPS, one capsule by | [...] | | | | | [address] [place], | (Primary Dx); | | | | | [place] [address] | Presence of | | | | | [phone] | permanent cardiac | | | | [...] | 2018 | Monitor | | [address] [place] | Interrogation | | | | | [place], | (Primary Dx); | | | | | [place] [address] | Presence of | | | | | [phone] | permanent cardiac | | | | [...] W | | | | | | [place], | | | | | | [place] [address] | | | | | | [phone] | | | | | | | [...]
--- OUTSIDE RECORDS SUMMARY | ~2019-11-16 | XMS | Encounter Summary ---
Demographics + + + | Address | [address] | | | [place] [address] | + + + | Home Phone [...] Team Providers + +------+ + | Care Lawyer Probate Name | Role | Phone | + [...] + | 03/24/ | Telephone | [facility] | [place], | Other (chest pain) | | 2018 | | CARDIOLOGY [address] | [address] [address] | | | | | [place], | [place], | | | | | [place] [address] | [place] [address] | | | | | [phone] | | | | | | | [...] Dx); | | | | | [place] [address] | Presence of | | | | | [phone] | permanent cardiac | | | | [...] Dx); | | | | | [place] [address] | Presence of | | | | | [phone] | permanent cardiac | | | | [...] | | | | | | [place] [address] | | | | | | [phone] | | | | | | | | +--------+ + + + + documented as of this encounter Visit Diagnoses Not on filedocumented in this encounter"
--- OUTSIDE RECORDS SUMMARY | ~2019-11-16 | XMS | Encounter Summary ---
Demographics + + + | Address | [address] | | | [place] [address] | + + + | Home Phone [...] Team Providers + +------+ + | Care Waistline Joiner Lockstitch Name | Role | Phone | + [...] | | | pain | [address] | [address] | | | | | Procedures | [place] | [place], | | | | | [place] Nuclear | [place], [place] | [place] | | | | | Stress Test | [address] | [address] | | | | | (Vasodilator | Phone: | Phone: | | | | | ) CHG | [phone] | [phone] | | | | | MYOCARDIAL | Fax: | Fax: | | | | | SPECT | [phone] | [phone] | | | | | MULTIPLE | [...] 2012 | | CARDIOLOGY [address] | FLESHING MACHINE OPERATOR [address] | interactions, chest | | | | [place], | [place], [place] | pain) | | | | [place] [address] | [address] | | | | | [phone] | | | +--------+ + + + [...] 2018 | Monitor | | [address] [place] | Interrogation | | | | | [place], | (Primary Dx); | | | | | [place] [address] | Presence of | | | | | [phone] | permanent cardiac | | | | [...] 2018 | Monitor | | [address] [place] | Interrogation | | | | | [place], | (Primary Dx); | | | | | [place] [address] | Presence of | | | | | [phone] | permanent cardiac | | | | [...] | | | | | | [place] [address] | | | | | | [phone] | | | | | | | | +--------+ + + + + documented as of this encounter Results [place] Nuclear Stress Test (Vasodilator) (12/07/2013 7:01 AM PST) + + | Specimen | + + | | + + + + + | Narrative | Performed At | + + + | [facility] Diagnostic Imaging | [facility] | | Department [address] [place] | [facility] | | [ rep ct [address]] [ rep ct [facility] | | [facility]] Signed | - IMAGING | | | | | Patient Name: MOE GAY | | | Physician: JACKLYN : 1960 Age: 53 Sex: M Unit | | | #: [id number] Exam Date: 12/06/13 Location: | | | [facility] [place] Report #: [id number] Page: | | | %(RAD)RES..mtdd.print.filter("pg") of %(RAD) | | | RES..mtdd.print.filter("tpg") | | | | | | Accession Number: [id number] | | | PERSANTINE SESTAMIBI STRESS TEST, [...] Transcribed Date/Time: 12/07/2013 08:18 | | | Air Compressor Operator: <<Signature on File>> | | | | | | Daljit Singletary MD [facility] FASE12/07/13 1321 <Electronically signed | | | by Daljit Singletary MD, FACC, FACP, FASE, FASNC> Daljit | | | MD Gemini [facility] FASE 12/07/13700 Air Compressor Operator: Jessica | | | [id number] PARISA Garcia | | + + + + + + + + | Performing | Address | City/State/Zipcode | Phone Number | | Organization | | | | + + + + + | [facility] | [address] | [place] | [phone] | | [facility] | | [address] | | | - IMAGING | | | | + + + + + documented in this encounter Visit Diagnoses + + | Diagnosis | + + | Other chest pain - Primary | + + documented in this encounter
--- OUTSIDE RECORDS SUMMARY | ~2019-11-16 | XMS | Encounter Summary ---
Demographics + + + | Address | [address] | | | [place] [address] | + + + | Home Phone [...] Providers + +------+ + | Care College President Name | Role | Phone | [...] Eva ROUSE | | | | | [place], [place] | [address] | | | | | [address] | [place] [address] | | | | | [phone] | [phone] | | | | | | | [...] Interrogation | | | | | [place], | (Primary Dx); | | | | | [place] [address] | Presence of | | | | | [phone] | permanent cardiac | | | | [...] Interrogation | | | | | [place], | (Primary Dx); | | | | | [place] [address] | Presence of | | | | | [phone] | permanent cardiac | | | | [...] W | | | | | | [place], | | | | | | [place] [address] | | | | | | [phone] | | | | | | | [...] | | | | using the MDRD IDNC | | | | | | traceable [...]
--- OUTSIDE RECORDS SUMMARY | ~2019-11-16 | XMS | Encounter Summary ---
Demographics + + + | Address | [address] [place] [address] | | | [place] [address] | + + + | Home Phone [...] [place] | | | | | [address] | | + + + + + Care Team Providers + +------+ + | Care Desizing Machine Operator Name | Role | Phone [...] | [facility] [address] | MD [address] | | | | | [address] | [facility] [place] | | | | | Mailcode: Center | [address] | | | | | for Health and | [phone] | | | | | [facility] [address] | | | | | | [place], [place] | | | | | | [address] | | | | | | [phone] | | | +--------+ + + + [...]
--- OUTSIDE RECORDS SUMMARY | ~2019-11-16 | XMS | Encounter Summary ---
Demographics + + + | Address | [address] | | | [place] [address] | + + + | Home Phone [...] Providers + +------+ + | Care Military Communications Specialist Name | Role | Phone [...] Amanda, | | | 2013 | | [facility] | DO [address] | | | | | [address] | [place] | | | | | [place] | [address] | | | | | [address] | | | | | | [phone] | | | +--------+ + + + [...] Dx); | | | | | [place] [address] | Presence of | | | | | [phone] | permanent cardiac | | | | [...] Dx); | | | | | [place] [address] | Presence of | | | | | [phone] | permanent cardiac | | | | [...] | | | | | | [place] [address] | | | | | | [phone] | | | | | | | | +--------+ + + + + documented as of this encounter Visit Diagnoses Not on filedocumented in this encounter"
--- OUTSIDE RECORDS SUMMARY | ~2019-11-16 | XMS | Encounter Summary ---
Demographics + + + | Address | [address] | | | [place] [address] | + + + | Home Phone [...] Providers + +------+ + | Care Linoleum Layer Helper Name | Role | Phone | + +------+ + | Michael Amanda DO | PCP | | + +------+ + Encounter Details +--------+ + + + + | Date | Type | Department | Care Team | Description | +--------+ + + + + | 10/01/ | Hospital | [facility] | Mary Bradshaw | | | 2013 | Encounter | MED CTR [facility] | Guy Larkin MD | | | | | [address] [place] | [address] | | | | | [place], [place] | [place], [place] | | | | | [address] | [address] | | | | | [phone] | | | +--------+ + + + [...] + + + +---------+ + + | Gro[place]-3 Fatty | CAPS, one capsule by | [...] Interrogation | | | | | [address] [place], | (Primary Dx); | | | | | [place] [address] | Presence of | | | | | [phone] | permanent cardiac | | | | [...] | 2018 | Monitor | | [address] | Interrogation | | | | | [place], | (Primary Dx); | | | | | [place] [address] | Presence of | | | | | [phone] | permanent cardiac | | | | [...] W | | | | | | [place], | | | | | | [place] [address] | | | | | | [phone] | | | | | | | [...] + | MISCELLANEOUS LAB | | | [phone] | + +---------+ + + | MISCELANIOUS LAB | | | [phone] | + +---------+ + + documented in this encounter Visit Diagnoses Not on filedocumented in this encounter"
--- OUTSIDE RECORDS SUMMARY | ~2019-11-16 | XMS | Encounter Summary ---
Demographics + + + | Address | [address] | | | [place] [address] | + + + | Home Phone [...] Team Providers + +------+ + | Care Hadoop Administrator Name | Role | Phone | [...] + + | 08/30/ | Refill | [facility] | Kirk French | Medication Refill | | 2019 | | [facility] | MD [address] | | | | | [facility] [address] | [address] | | | | | [address] | [place] [address] | | | | | [place], [place] | [phone] | | | | | [address] | | | | | | [phone] | | | +--------+--------+ + + + [...] 2019 | Monitor | | [place] [address] [facility] | Interrogation | | | | | [place], | (Primary Dx); | | | | | [place] [address] | Presence of | | | | | [phone] | permanent cardiac | | | | [...] Interrogation | | | | | [facility], | (Primary Dx); | | | | | [place] [address] | Presence of | | | | | [phone] | permanent cardiac | | | | [...] W | | | | | | [place], | | | | | | [place] [address] | | | | | | [phone] | | | | | | | | +--------+ + + + + documented as of this encounter Visit Diagnoses Not on filedocumented in this encounter"
--- OUTSIDE RECORDS SUMMARY | ~2019-11-16 | XMS | Encounter Summary ---
Demographics + + + | Address | [address] | | | [place] [address] | + + + | Home Phone [...] Team Providers + +------+ + | Care Chenille Machine Operator Name | Role | Phone | + +------+ + | Kirk French MD | PCP | | + +------+ + Encounter Details +--------+ + + + + | Date | Type | Department | Care Team | Description | +--------+ + + + + | 01/25/ | Emergency | [facility] | Donald Callahan, | Strain of lumbar | | 2016 | | [facility] | Russ, DO [address] | paraspinal muscle, | | | | [facility]ENTER | [address] | initial encounter; | | | | [address] | [place], [place] | Left hip pain | | | | [place], [place] | [address] | | | | | [address] | | | | | | [phone] | | | +--------+ + + + [...] + + + +---------+ + + | Monroe-3 Fatty | CAPS, one capsule by | [...] Dx); | | | | | [place] [address] | Presence of | | | | | [phone] | permanent cardiac | | | | [...] | 2018 | Monitor | | [address] | Interrogation | | | | | [place], | (Primary Dx); | | | | | [place] [address] | Presence of | | | | | [phone] | permanent cardiac | | | | [...] W | | | | | | [place], | | | | | | [place] [address] | | | | | | [phone] | | | | | | | [...] Conversion - 07/06/2019 12:12 AM PDT PINA [id number] years MaleXR | | LUMBAR SPINE LIMITED [...]
--- OUTSIDE RECORDS SUMMARY | ~2019-11-16 | XMS | Encounter Summary ---
Demographics + + + | Address | [address] | | | [place] [address] | + + + | Home Phone [...] Team Providers + +------+ + | Care Carpenters Supervisor Name | Role | Phone | [...] | Refill | [facility] [place] | [place], | Medication Refill | | 2014 | | CARDIOLOGY [address] | PARISA [place] [address] | | | | | [place], | [place], | | | | | [place] [address] | [place] [address] | | | | | [phone] | [phone] | | | | | | | [...] | Monitor | | MD [address] [place] | Interrogation | | | | | [place], | (Primary Dx); | | | | | [place] [address] | Presence of | | | | | [phone] | permanent cardiac | | | | [...] | Monitor | | MD [address] [place] | Interrogation | | | | | [place], | (Primary Dx); | | | | | [place] [address] | Presence of | | | | | [phone] | permanent cardiac | | | | [...] | | | | | | [place] [address] | | | | | | [phone] | | | | | | | | +--------+ + + + + documented as of this encounter Visit Diagnoses Not on filedocumented in this encounter"
--- OUTSIDE RECORDS SUMMARY | ~2019-11-16 | XMS | Encounter Summary ---
Demographics + + + | Address | [address] | | | [place] [address] | + + + | Home Phone [...] Providers + +------+ + | Care Sales Outfitter Name | Role | Phone | + +------+ + PCP | Unavailable | + +------+ + Encounter Details +--------+ + + + + | Date | Type | Department | Care Team | Description | +--------+ + + + + | 08/17/ | [facility] | [facility] | Evan Gandara MD | | | 2005 | Encounter | MED CTR LABORATORY | [address] [facility] | | | | | [address] [place] | [place] | | | | | [place] | [address] | | | | | [address] | | | | | | [phone] | | | +--------+ + + + [...] | | | | | [place], | (Primary Dx); | | | | | [place] [address] | Presence of | | | | | [phone] | permanent cardiac | | | | [...] 2018 | Monitor | | MD [facility] | Interrogation | | | | | [place], | (Primary Dx); | | | | | [place] [address] | Presence of | | | | | [phone] | permanent cardiac | | | | [...] W | | | | | | [place], | | | | | | [place] [address] | | | | | | [phone] | | | | | | | | +--------+ + + + + documented as of this encounter Visit Diagnoses Not on filedocumented in this encounter"
--- OUTSIDE RECORDS SUMMARY | ~2019-11-16 | XMS | Encounter Summary ---
Demographics + + + | Address | [address] | | | [place] [address] | + + + | Home Phone [...] Team Providers + +------+ + | Care Separations Scientist Name | Role | Phone | [...] 2012 | | CARDIOLOGY [address] | CASK MAKER [address] | | | | | [place], | [place] [facility], [place] | | | | | [place] [address] | [address] | | | | | [phone] | | | +--------+ + + + [...] Interrogation | | | | | [place], | (Primary Dx); | | | | | [place] [address] | Presence of | | | | | [phone] | permanent cardiac | | | | [...] Interrogation | | | | | [place], | (Primary Dx); | | | | | [place] [address] | Presence of | | | | | [phone] | permanent cardiac | | | | [...] W | | | | | | [place], | | | | | | [place] [address] | | | | | | [phone] | | | | | | | | +--------+ + + + + documented as of this encounter Visit Diagnoses Not on filedocumented in this encounter"
--- OUTSIDE RECORDS SUMMARY | ~2019-11-16 | XMS | Encounter Summary ---
Demographics + + + | Address | [address] | | | [place] [address] | + + + | Home Phone [...] Team Providers + +------+ + | Care Canal Tender Name | Role | Phone | [...] + | 01/24/ | Telephone | [facility] | Daljit Singletary, | Other | | 2019 | | CARDIOLOGY [address] | MD [address] [place] | | | | | [place], | [place], | | | | | [place] [address] | [place] [address] | | | | | [phone] | [phone] | | | | | | | [...] Interrogation | | | | | [place], | (Primary Dx); | | | | | [place] [address] | Presence of | | | | | [phone] | permanent cardiac | | | | [...] 2018 | Monitor | | [address] [place] | Interrogation | | | | | [place], | (Primary Dx); | | | | | [place] [address] | Presence of | | | | | [phone] | permanent cardiac | | | | [...] | | | | | | [place] [address] | | | | | | [phone] | | | | | | | | +--------+ + + + + documented as of this encounter Visit Diagnoses Not on filedocumented in this encounter"
--- OUTSIDE RECORDS SUMMARY | ~2019-11-16 | XMS | Encounter Summary ---
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
--- OUTSIDE RECORDS SUMMARY | ~2019-11-16 | XMS | Encounter Summary ---
Demographics + + + | Address | [address] | | | [place] [address] | + + + | Home Phone [...] Team Providers + +------+ + | Care Costume Technician Name | Role | Phone | [...] | | | | exertion | | [address] [place] | | | | | Chest pain | | [place], [place] | | | | | on exertion | | [address] | | | | | | | Phone: | | | | | | | [phone] | | | | | | | Fax: | | | | | | | [phone] | +--------+--------+ + + + + Encounter Details +--------+ + + + + | Date | Type | Department | Care Team | Description | +--------+ + + + + | 04/27/ | Emergency | [facility] | Martell Hart | Chest pain on | | 2014 - | | [facility] | Sanjay Palacios MD | exertion (Primary | | | | [address] [place] | [address] | Dx); Dyspnea on | | 03/20/ | | [place] [address] | [place] | exertion; Essential | | 2014 | | [phone] | [address] | hypertension; Acute | | | | | | chest pain; | | | | | Parth Kraft, | Dizziness, | | | | | [address] | nonspecific; Mixed | | | | | [place] | anxiety depressive | | | | | [address] | disorder; PUD | | | | | [phone] | (peptic ulcer | | | | [...] might be different f rom the original. [facility] DISCHARGE SUMMARY Pt. Name/Age/: Moe Sanchez 55 [...] 911 aka: NITROSTAT ONE TOUCH DELICA LANCETS [facility] Check glucose as needed for hypoglycemia OSTEO [...] Daily. to reduce urinary frequency - Lot #[id number], exp 07/2016 aka: RAPAFLO UNCODED MEDICATION - [...] hospital follow up Contact information: [address] [address] Call PARISA Russell. Specialty: Nurse Practitioner Why: As needed Contact information: [address] [place] [address] Condition: Patient being discharged with condition improved. Diet: Heart healthy, avoid acidic drinks and foods, spicy foods, too much coffee. Greater than 30 minutes were spent on discharge and coordination of post-hospital care. Electronically signed by: Thierry Fregoso DO, 03/20/2015 11:22 [facility] Portions of this chart may have been created with unamia voice recognition software. Occasi onal wrong-word or [...] medications and using antacids plus an acid devin medication. If H pylori is found, antibiotics [...] afford the prescribed medication, you can try xwwy-ssf-fgyilsn acid blockers, such as Pepcid AC, Tagamet, [...] or as directed by your healthcare provider 5827-[address] [employer]. [address] [place] [address]. All righ ts reserved. This information is [...] + + + +---------+ + + | [place]-3 Fatty | CAPS, one capsule by [...] | | | | | | | #[id number], exp 07/2016 | | | | | [...] DO - 03/19/2015 10:09 PM PDT . [facility] PROGRESS NOTE Patient: Moe Sanchez : 1960: Age: 55 y.o. MedRec: [id number] PCP: Kirk French Admission date: 03/18/2015 Hospital [...] 1708 03/18/15 1528 TROPONINI <0.01 <0.01 0.01 [facility] ECHOCARDIOGRAM REPORT STUDY DATE: 03/19/2015 PATIENT NAME: [...] changes. No results for input(s): PHART, PO2ART, YWM1BKV, GXJ0ZIM, BEART, Q8IKBQCM in the last 168 h ours. No results for input(s): SPECSOURCE, PHPOCB, HCO3, TCO2, BEART, BE, XVXL9LRW in the last 16 8 hours. Invalid input(s): ICIOW2MN, YXML6XT Point of care glucose: No results for [...] minutes today. Thierry Fregoso DO 03/19/2015 22:09 [facility] Portions of this chart may have been created with unamia voice recognition software. Occasi onal wrong-word or sound-alike substitutions may have occurred due to the inherent granger itations of voice recognition software. Please read the chart carefully and recognize, using context, where these substitutions have occurred Belén Cho RN - 03/19/2015 11:03 AM [id number] Report given to Marlen morejon who is [...] | Monitor | | MD [address] | Interrogation | | | | | [place], | (Primary Dx); | | | | | [place] [address] | Presence of | | | | | [phone] | permanent cardiac | | | | | | pacemaker; | | | | | | Sinoatrial node | | | | | | dysfunction (HCC) | | | | | | with symptomatic | | | | | | bradycardia | +--------+ + + + + | 11/20/ | Implant | Cardiology | Dlajit Singletary, | Remote Device | | 2018 | Monitor | | [address] | Interrogation | | | | | [place], | (Primary Dx); | | | | | [place] [address] | Presence of | | | | | [phone] | permanent cardiac | | | | [...] W | | | | | | [place], | | | | | | [place] [address] | | | | | | [phone] | | | | | | | [...] Performed At | + + + | [facility] ECHOCARDIOGRAM REPORT | | | STUDY DATE: [...] | | Signed by: Daljit Singletary MD [facility] 03/19/2015 15:44 | | | Dental Associate: Dewey Valdez RDMS | | + + [...] [address] | [place] | [phone] | | [facility] | | [address] | | | - LABORATORY | | [...] 15 | 7 - 18 mg/dL | [facility] | | | | | | [facility] | | | | | | MEDICAL | | | | | | CENTER - | | | | | | LABORATORY | | + + + + + + | Creatinine | 0.90 | 0.60 - 1.30 | [facility] | | | | | mg/dL [...] | | MEDICAL | | | | mL/min/1.87w8Wsys than | | CENTER - | | [...] + | [facility] | [address] | [place] | [phone] | | [facility] | | [address] | | | - LABORATORY | | [...] [address] | [place] | [phone] | | [facility] | | [address] | | | - LABORATORY | | [...] [address] | [place] | [phone] | | [facility] | | [address] | | | - LABORATORY | | [...] + | Kalpesh Brown Results In - 03/18/2015 4:31 PM PDT [...] [address] | [place] | [phone] | | [facility] | | [address] | | | - LABORATORY | | | | + + + + + B Type Natriuretic Peptide (03/18/2015 3:34 PM PDT) + +-------+ + + + | Component | Value | Ref Range | Performed | Pathologist | | | | | At | Signature | + +-------+ + + + | BNP | 11 | <100 pg/mL | [facility] | | [...] [address] | [place] | [phone] | | [facility] | | [address] | | | - LABORATORY | | | | + + + + + Phosphorus (03/18/2015 3:28 PM PDT) + +-------+ + + + | Component | Value | Ref Range | Performed | Pathologist | | | | | At | Signature | + +-------+ + + + | Phosphorus | 3.8 | 2.5 - 4.6 mg/dL | [facility] | | | | [...] + | [facility] | [address] | [place] | [phone] | | [facility] | | [address] | | | - LABORATORY | | | | + + + + + Magnesium (03/18/2015 3:28 PM PDT) + +-------+ + + + | Component | Value | Ref Range | Performed | Pathologist | | | | | At | Signature | + +-------+ + + + | Magnesium | 2.1 | 1.8 - 2.5 mg/dL | [facility] | | | | | [...] [address] | [place] | [phone] | | [facility] | | [address] | | | - LABORATORY | | [...] + | [facility] | [address] | [place] | [phone] | | [facility] | | [address] | | | - LABORATORY | | [...] [address] | [place] | [phone] | | [facility] | | [address] | | | - LABORATORY | | [...] 18 | 7 - 18 mg/dL | [facility] | | | | | | [facility] | | | | | | MEDICAL | | | | | | CENTER - | | | | | | LABORATORY | | + + + + + + | Creatinine | 0.97 | 0.60 - 1.30 | [facility] | | | | | mg/dL [...] | | MEDICAL | | | | mL/min/1.28j4Bipv than | | CENTER - | | [...] 4.2 | 3.2 - 5.0 g/dL | [facility] | | | | | | ST. [...] [address] | [place] | [phone] | | [facility] | | [address] | | | - LABORATORY | | [...] ST. | [address] | [place] | [phone] | | [facility] | | [address] | | | - LABORATORY | | [...] PM PDT | | | | | Wed03/18/15 at 1530, For 1 dose | | | | | | + +---------+ +---------+-------+---+ +---+---+ | | | +---+---+ documented in this encounter
--- OUTSIDE RECORDS SUMMARY | ~2019-11-16 | XMS | Encounter Summary ---
Demographics + + + | Address | [address] | | | [place] [address] | + + + | Home Phone [...] Team Providers + +------+ + | Care Otr Driver Name | Role | Phone | [...] + | 08/17/ | Office | [facility] | Michael Amanda, | Testosterone | | 2012 | Visit | [facility] | DO [address] | deficiency (Primary | | | | [address] | [place] | Dx); Hypoglycemia; | | | | [place] | [address] | Herpes | | | | [address] | | | | | | [phone] | | | +--------+---------+ + + + [...] his testosterone levels. He seen at [facility]. He was prescribed OxyContin and Dilaudid. [...] dy sfunction. He was seen at [facility] yesterday and they prescribed him testostero ne cypionate injections. He's not sure when they wanted him to come back for labs. He has a followup appointment with [facility] in one month. 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 This note is dictated using SCHAD voice recognition software. This note was dictated [...] Interrogation | | | | | [place], | (Primary Dx); | | | | | [place] [address] | Presence of | | | | | [phone] | permanent cardiac | | | | [...] | Monitor | | MD [address] | Interrogation | | | | | [place], | (Primary Dx); | | | | | [place] [address] | Presence of | | | | | [phone] | permanent cardiac | | | | [...] W | | | | | | [place], | | | | | | [place] [address] | | | | | | [phone] | | | | | | | [...]
--- OUTSIDE RECORDS SUMMARY | ~2019-11-16 | XMS | Encounter Summary ---
Demographics + + + | Address | [address] | | | [place] [address] | + + + | Home Phone [...] Team Providers + +------+ + | Care Downstream Biomanufacturing Technician Name | Role | Phone | + +------+ + PCP | Unavailable | + +------+ + Encounter Details +--------+ + + + + | Date | Type | Department | Care Team | Description | +--------+ + + + + | 09/12/ | Hospital | [facility] | | | | 1993 | Encounter | MED CTR EMER[facility]ENCY | | | | | | CENTER [address] | | | | | | [place] | | | | | | [address] | | | | | | [phone] | | | +--------+ + + + [...] Dx); | | | | | [place] [address] | Presence of | | | | | [phone] | permanent cardiac | | | | [...] Interrogation | | | | | [place], | (Primary Dx); | | | | | [place] [address] | Presence of | | | | | [phone] | permanent cardiac | | | | [...] 2019 | Visit | | PARISA Veronn [address] | | | | | | [place], | | | | | | [place] [address] | | | | | | [phone] | | | | | | | | +--------+ + + + + documented as of this encounter Visit Diagnoses Not on filedocumented in this encounter"
--- OUTSIDE RECORDS SUMMARY | ~2019-11-16 | XMS | Encounter Summary ---
Demographics + + + | Address | [address] | | | [place] [address] | + + + | Home Phone [...] Team Providers + +------+ + | Care Middleware Systems Architect Name | Role | Phone | + +------+ + PCP | Unavailable | + +------+ + Encounter Details +--------+ + + + + | Date | Type | Department | Care Team | Description | +--------+ + + + + | 12/16/ | Hospital | [facility] | | | | 2010 | Encounter | MED CTR LABORATORY | | | | | | [address] [place] | | | | | | [place] | | | | | | [address] | | | | | | [phone] | | | +--------+ + + + [...] Dx); | | | | | [place] [address] | Presence of | | | | | [phone] | permanent cardiac | | | | [...] Dx); | | | | | [place] [address] | Presence of | | | | | [phone] | permanent cardiac | | | | [...] W | | | | | | [employer] [place], | | | | | | [place] [address] | | | | | | [phone] | | | | | | | | +--------+ + + + + documented as of this encounter Visit Diagnoses Not on filedocumented in this encounter"
--- OUTSIDE RECORDS SUMMARY | ~2019-11-16 | XMS | Encounter Summary ---
Demographics + + + | Address | [address] | | | [place] [address] | + + + | Home Phone [...] Team Providers + +------+ + | Care Lvn Lpn Name | Role | Phone | + [...] 04/12/ | Telephone | [facility] | Daljit Singletary, | Other (issues with | | 2017 | | CARDIOLOGY [address] | MD [address] | low blood pressure | | | | [place], | [place], | and dizziness) | | | | [place] [address] | [place] [address] | | | | | [phone] | [phone] | | | | | | | [...] | Monitor | | MD [address] | Interrogation | | | | | [place], | (Primary Dx); | | | | | [place] [address] | Presence of | | | | | [phone] | permanent cardiac | | | | [...] | Monitor | | MD [address] | Interrogation | | | | | [place], | (Primary Dx); | | | | | [place] [address] | Presence of | | | | | [phone] | permanent cardiac | | | | [...] | | | | | | [place] [address] | | | | | | [phone] | | | | | | | | +--------+ + + + + documented as of this encounter Visit Diagnoses Not on filedocumented in this encounter"
--- OUTSIDE RECORDS SUMMARY | ~2019-11-16 | XMS | Encounter Summary ---
Demographics + + + | Address | [address] | | | [place] [address] | + + + | Home Phone [...] Providers + +------+ + | Care Spring Internship Name | Role | Phone | + +------+ + PCP | Unavailable | + +------+ + Encounter Details +--------+ + + + + | Date | Type | Department | Care Team | Description | +--------+ + + + + | 11/14/ | [facility] | [facility] | William Hirsch | | | 1999 | Encounter | MED CTR EMERGENCY | MD Cristobal [address] | | | | | CENTER [address] | [address] [place] | | | | | [place] | [place] [address] | | | | | [address] | [phone] | | | | | [phone] | | | +--------+ + + + [...] Dx); | | | | | [place] [address] | Presence of | | | | | [phone] | permanent cardiac | | | | [...] Dx); | | | | | [place] [address] | Presence of | | | | | [phone] | permanent cardiac | | | | [...] W | | | | | | [place], | | | | | | [place] [address] | | | | | | [phone] | | | | | | | | +--------+ + + + + documented as of this encounter Visit Diagnoses Not on filedocumented in this encounter"
--- OUTSIDE RECORDS SUMMARY | ~2019-11-16 | XMS | Encounter Summary ---
Demographics + + + | Address | [address] | | | [place] [address] | + + + | Home Phone [...] Team Providers + +------+ + | Care Pr Specialist Name | Role | Phone | [...] + | 09/01/ | Telephone | [facility] | Silvia, | Appointment | | 2016 | | CARDIOLOGY [address] | PARISA [place] [address] | (Reschedule) | | | | [place], | [place], | | | | | [place] [address] | [place] [address] | | | | | [phone] | [phone] | | | | | | | [...] 2018 | Monitor | | [address] [place] | Interrogation | | | | | [place], | (Primary Dx); | | | | | [place] [address] | Presence of | | | | | [phone] | permanent cardiac | | | | [...] | Monitor | | MD [address] [place] | Interrogation | | | | | [place], | (Primary Dx); | | | | | [place] [address] | Presence of | | | | | [phone] | permanent cardiac | | | | [...] | | | | | | [place] [address] | | | | | | [phone] | | | | | | | | +--------+ + + + + documented as of this encounter Visit Diagnoses Not on filedocumented in this encounter"
--- OUTSIDE RECORDS SUMMARY | ~2019-11-16 | XMS | Encounter Summary ---
Demographics + + + | Address | [address] | | | [place] [address] | + + + | Home Phone [...] + +------+ + | Care Network Systems Analyst Name | Role | Phone [...] + + | 04/10/ | Telephone | [facility] | Matthew Uriarte | Surgery Appointment | | 2019 | | [address] | MD Tawanna [address] | | | | | [place], [place] | [place], [place] | | | | | [address] | [address] | | | | | [phone] | | | +--------+ + + + [...] Dx); | | | | | [place] [address] | Presence of | | | | | [phone] | permanent cardiac | | | | [...] | Monitor | | [facility] | Interrogation | | | | | [place], | (Primary Dx); | | | | | [place] [address] | Presence of | | | | | [phone] | permanent cardiac | | | | [...] | | | | | | [place], | | | | | | [place] [address] | | | | | | [phone] | | | | | | | | +--------+ + + + + documented as of this encounter Visit Diagnoses Not on filedocumented in this encounter"
--- OUTSIDE RECORDS SUMMARY | ~2019-11-16 | XMS | Encounter Summary ---
Demographics + + + | Address | [address] | | | [place] [address] | + + + | Home Phone [...] Providers + +------+ + | Care Territory Service Representative Name | Role | Phone [...] 2019 | | GASTROENTEROLOGY | [address], [place] | | | | | [address] [place] | [address] [place], [place] | | | | | [address] [place], [place] | [address] | | | | | [address] | | | | | | [phone] | | | +--------+ + + + [...] | | | | | [place], | (Primary Dx); | | | | | [place] [address] | Presence of | | | | | [phone] | permanent cardiac | | | | [...] 2018 | Monitor | | [address] | Interrogation | | | | | [place], | (Primary Dx); | | | | | [place] [address] | Presence of | | | | | [phone] | permanent cardiac | | | | [...] | | | | | | [place] [address] | | | | | | [phone] | | | | | | | | +--------+ + + + + documented as of this encounter Visit Diagnoses Not on filedocumented in this encounter"
--- OUTSIDE RECORDS SUMMARY | ~2019-11-16 | XMS | Encounter Summary ---
Demographics + + + | Address | [address] [place] [address] | | | [place] [address] | + + + | Home Phone [...] [place] | | | | | [address] | | + + + + + Care Team Providers + +------+ + | Care Dip Filler Name | Role | Phone | [...] | | | | | [place] | [facility] | | | | | | [place], [place] | [place], [place] | | | | | | [address] | [address] | | | | | | Phone: | Phone: | | | | | | [phone] | [phone] | | | | | | Fax: | Fax: | | | | | | [phone] | [phone] | +--------+--------+ + + + + Encounter Details +--------+---------+ + + + | Date | Type | Department | Care Team | Description | +--------+---------+ + + + | 09/28/ | Office | [facility]ive [facility] | Bridgette Rios, | Chronic diarrhea | | 2019 | Visit | [facility] [address] | [address] | (Primary Dx); | | | | [address] | [place], [place] | Abdominal cramping; | | | | Mailcode: [place] | [address] | Unintentional weight | | | | for Health and | [phone] | loss | | | | [facility], [facility] | | | | | | [place], [place] | | | | | | [address] | | | | | | [phone] | | | +--------+---------+ + + + [...] some lab orders to [facility] 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 CT scan done through [facility] November show ed mild diverticulosis without [...] of Present Illness: Here with his from [place] for second opinion regarding severe abdominal cramps, isreal rrhea and weight loss following a GI illness contracted during a trip to [facility]. He reports that 2 years ago he was traveling in [facility] and he had some suspicious seafood. He develo ps profound bloody diarrhea with severe abdominal pain. He was hospitalized in [facility] and w as treated with [...] file Gets together: Not on file Attends holiness service: Not on file Active member of [...] Plan and Recommendations: 1. [facility] in [place] for stool studies as outlined above 2. If negative and symptoms persist, recommend capsule endoscopy (this could be completed b y local office analyst or he could return to [place] for this test) 3. Nortryptiline 25mg q HS with instruction to titrate to 50mg q HS after 2 weeks if tolera kevin Follow-Up: with local office analyst Counseling Time: I spent a total of 35 minutes with this patient, of which greater than 50 % of the time was spent in counseling. Specific issues that were discussed included a revie w of the disease, diagnostic tools that help in our management plans for the patient's chron ic diarrhea, abdominal cramping and weight loss and goals for treatment. Bridgette Rios MD [facility] Gastroenterology documented in this e ncounter Plan [...]
--- OUTSIDE RECORDS SUMMARY | ~2019-11-16 | XMS | Encounter Summary ---
Demographics + + + | Address | [address] | | | [place] [address] | + + + | Home Phone [...] Providers + +------+ + | Care Retail Account Specialist Name | Role | Phone [...] + + | 04/07/ | Telephone | [facility] | Matthew Uriarte | Medication Orders | | 2019 | | [address] | MD Tawanna [address] | (Medication ) | | | | [place], [place] | [place], [place] | | | | | [address] | [address] | | | | | [phone] | | | +--------+ + + + [...] Interrogation | | | | | [place], | (Primary Dx); | | | | | [place] [address] | Presence of | | | | | [phone] | permanent cardiac | | | | [...] | 2018 | Monitor | | [address] | Interrogation | | | | | [place], | (Primary Dx); | | | | | [place] [address] | Presence of | | | | | [phone] | permanent cardiac | | | | [...] | | | | | | [place] [address] | | | | | | [phone] | | | | | | | | +--------+ + + + + documented as of this encounter Visit Diagnoses Not on filedocumented in this encounter"
--- OUTSIDE RECORDS SUMMARY | ~2019-11-16 | XMS | Encounter Summary ---
Demographics + + + | Address | [address] | | | [place] [address] | + + + | Home Phone [...] Providers + +------+ + | Care Fire Dispatcher Name | Role | Phone | [...] Provider Unknown | | | | | [place], [place] | [phone] | | | | | [address] | | | | | | [phone] | | | +--------+ + + + [...] + + +---------+ + + | [place]-3 Fatty | CAPS, one capsule by | [...] | | | | | | | #[id number], exp 07/2016 | | | | | [...] | Interrogation | | | | | [facility] | (Primary Dx); | | | | | [place] [address] | Presence of | | | | | [phone] | permanent cardiac | | | | [...] | 2018 | Monitor | | [address] [place] | Interrogation | | | | | [place], | (Primary Dx); | | | | | [place] [address] | Presence of | | | | | [phone] | permanent cardiac | | | | [...] W | | | | | | [place], | | | | | | [place] [address] | | | | | | [phone] | | | | | | | [...]
--- OUTSIDE RECORDS SUMMARY | ~2019-11-16 | XMS | Encounter Summary ---
Demographics + + + | Address | [address] | | | [place] [address] | + + + | Home Phone [...] Team Providers + +------+ + | Care Admission Liaison Name | Role | Phone | [...] Refill | | 2014 | | [facility] [place] | DO [address] | | | | | [address] | [place] | | | | | [place], [place] | [address] | | | | | [address] | | | | | | [phone] | | | +--------+--------+ + + + [...] 2018 | Monitor | | [address] | Interrogation | | | | | [place], | (Primary Dx); | | | | | [place] [address] | Presence of | | | | | [phone] | permanent cardiac | | | | [...] 2018 | Monitor | | [address] [place] | Interrogation | | | | | [place], | (Primary Dx); | | | | | [place] [address] | Presence of | | | | | [phone] | permanent cardiac | | | | [...] | | | | | | [place] [address] | | | | | | [phone] | | | | | | | | +--------+ + + + + documented as of this encounter Visit Diagnoses Not on filedocumented in this encounter"
--- OUTSIDE RECORDS SUMMARY | ~2019-11-16 | XMS | Encounter Summary ---
Demographics + + + | Address | [address] | | | [place] [address] | + + + | Home Phone [...] | [facility] | | | and [...] Team Providers + +------+ + | Care Stove Installer Name | Role | Phone | [...] 2019 | | GASTROENTEROLOGY | [address], [place] | | | | | [address] [place] | [address] [place], [place] | | | | | [address] [place], [place] | [address] | | | | | [address] | | | | | | [phone] | | | +--------+ + + + [...] Interrogation | | | | | [facility], | (Primary Dx); | | | | | [place] [address] | Presence of | | | | | [phone] | permanent cardiac | | | | [...] Interrogation | | | | | [facility] [place], | (Primary Dx); | | | | | [place] [address] | Presence of | | | | | [phone] | permanent cardiac | | | | [...] | | | | | | [place] [id number] | | | | | | [phone] | | | | | | | | +--------+ + + + + documented as of this encounter Visit Diagnoses Not on filedocumented in this encounter"
--- OUTSIDE RECORDS SUMMARY | ~2019-11-16 | XMS | Encounter Summary ---
Demographics + + + | Address | [address] | | | [place] [address] | + + + | Home Phone [...] Providers + +------+ + | Care Lithographic Platemaker Name | Role | Phone | + [...] | | CARDIOLOGY [address] | HR DIRECTOR [address] | faxed) | | | | [address] [place], | [place] [facility], [place] | | | | | [place] [address] | [address] | | | | | [phone] | | | +--------+ + + + [...] | Monitor | | MD [address] | Interrogation | | | | | [place], | (Primary Dx); | | | | | [place] [address] | Presence of | | | | | [phone] | permanent cardiac | | | | [...] | Monitor | | MD [address] | Interrogation | | | | | [place], | (Primary Dx); | | | | | [place] [address] | Presence of | | | | | [phone] | permanent cardiac | | | | [...] | | | | | | [place] [address] | | | | | | [phone] | | | | | | | | +--------+ + + + + documented as of this encounter Visit Diagnoses Not on filedocumented in this encounter"
--- OUTSIDE RECORDS SUMMARY | ~2019-11-16 | XMS | Encounter Summary ---
Demographics + + + | Address | [address] | | | [place] [address] | + + + | Home Phone [...] Providers + +------+ + | Care Operations Vocational Instructor Name | Role | Phone | [...] [place] | | | | | [place] | | [id number] Phone: | | | | | CYSTO/URETER | | [phone] | | | | | O | | Fax: | | | | | W/LITHOTRIPS | | [phone] | | | | | Y &INDWELL [...] | | | | | [address] | [place] | | | | | [place] | [address] | | | | | [address] | | | | | | [phone] | | | +--------+ + + + [...] +----+---+ + + | | 0 | [place] | | | | 8 | 43-degrees | | | | 2 | | | | | 7 | | | +----+---+ + + | | 0 | First | | | | 8 | Inc/Proc St | | | | 2 | | | | | 8 | | | +----+---+ + + | | 0 | [place] off | | | | 9 | [...] 04/13/19 1219 by | | eral | voyq-cec-shmlvh catheter system; | Dominga Steen RN | [...] Interrogation | | | | | [place], | (Primary Dx); | | | | | [place] [address] | Presence of | | | | | [phone] | permanent cardiac | | | | | | pacemaker; | | | | | | Sinoatrial node | | | | | | dysfunction (HCC) | | | | | | with symptomatic | | | | | | bradycardia | +--------+ + + + + | 11/20/ | Implant | Cardiology | Joshwacherelle Shaistakenneth, | Remote Device | | 2018 | Monitor | | [address] | Interrogation | | | | | [place], | (Primary Dx); | | | | | [place] [address] | Presence of | | | | | [phone] | permanent cardiac | | | | [...] W | | | | | | [place], | | | | | | [place] [address] | | | | | | [phone] | | | | | | | [...] 8:23 | | | | | Starting [facility] 04/13/19 at 0823, | | AM [...]
--- OUTSIDE RECORDS SUMMARY | ~2019-11-16 | XMS | Encounter Summary ---
Demographics + + + | Address | [address] | | | [place] [address] | + + + | Home Phone [...] Providers + +------+ + | Care Study Director Name | Role | Phone | [...] 2014 | | CARDIOLOGY [address] | RADIATION PHYSICIST [address] | | | | | [place], | [place], [place] | | | | | [place] [address] | [address] | | | | | [phone] | | | +--------+ + + + [...] Interrogation | | | | | [place], | (Primary Dx); | | | | | [place] [address] | Presence of | | | | | [phone] | permanent cardiac | | | | [...] 2018 | Monitor | | [address] | Interrogation | | | | | [place], | (Primary Dx); | | | | | [place] [address] | Presence of | | | | | [phone] | permanent cardiac | | | | [...] | | | | | | [place] [address] | | | | | | [phone] | | | | | | | | +--------+ + + + + documented as of this encounter Visit Diagnoses Not on filedocumented in this encounter"
--- OUTSIDE RECORDS SUMMARY | ~2019-11-16 | XMS | Encounter Summary ---
Demographics + + + | Address | [address] | | | [place] [address] | + + + | Home Phone [...] + +------+ + | Care X Ray Service Engineer Name | Role | Phone [...] 2019 | | GASTROENTEROLOGY | [address], [place] | | | | | [address] [place] | [address] [place], [place] | | | | | [address] [place], [place] | [address] | | | | | [address] | | | | | | [phone] | | | +--------+ + + + [...] Interrogation | | | | | [facility], | (Primary Dx); | | | | | [place] [address] | Presence of | | | | | [phone] | permanent cardiac | | | | [...] | Monitor | | MD [address] | Interrogation | | | | | [place], | (Primary Dx); | | | | | [place] [address] | Presence of | | | | | [phone] | permanent cardiac | | | | [...] | | | | | | [place] [address] | | | | | | [phone] | | | | | | | | +--------+ + + + + documented as of this encounter Visit Diagnoses Not on filedocumented in this encounter"
--- OUTSIDE RECORDS SUMMARY | ~2019-11-16 | XMS | Encounter Summary ---
Demographics + + + | Address | [address] | | | [place] [address] | + + + | Home Phone [...] Providers + +------+ + | Care Branch Maker Name | Role | Phone | [...] Refill | | 2013 | | MEDIC[facility] [place] | DO [address] | | | | | [address] | [place] | | | | | [place] | [address] | | | | | [address] | | | | | | [phone] | | | +--------+--------+ + + + [...] | Monitor | | MD [address] | Interrogation | | | | | [place], | (Primary Dx); | | | | | [place] [address] | Presence of | | | | | [phone] | permanent cardiac | | | | [...] | Monitor | | MD [address] | Interrogation | | | | | [place], | (Primary Dx); | | | | | [place] [address] | Presence of | | | | | [phone] | permanent cardiac | | | | [...] | | | | | | [place] [address] | | | | | | [phone] | | | | | | | | +--------+ + + + + documented as of this encounter Visit Diagnoses Not on filedocumented in this encounter"
--- OUTSIDE RECORDS SUMMARY | ~2019-11-16 | XMS | Encounter Summary ---
Demographics + + + | Address | [address] | | | [place] [address] | + + + | Home Phone [...] + +------+ + | Care Community Relations Police Lieutenant Name | Role | Phone | + +------+ + | Darion Holden DO | PCP | | + +------+ + Encounter Details +--------+ + + + + | Date | Type | Department | Care Team | Description | +--------+ + + + + | 08/05/ | Hospital | [facility] | Emmanuel Daniel MD | | | 2009 | Encounter | MED CTR XRAY [address] | [address] | | | | | [place] | [address] [place], [place] | | | | | [place] [address] | [address] | | | | | [phone] | | | +--------+ + + + [...] MD [address] [facility] | Interrogation | | | | | [place], | (Primary Dx); | | | | | [place] [address] | Presence of | | | | | [phone] | permanent cardiac | | | | [...] Interrogation | | | | | [place], | (Primary Dx); | | | | | [place] [address] | Presence of | | | | | [phone] | permanent cardiac | | | | [...] W | | | | | | [place], | | | | | | [place] [address] | | | | | | [phone] | | | | | | | | +--------+ + + + + documented as of this encounter Visit Diagnoses Not on filedocumented in this encounter"
--- OUTSIDE RECORDS SUMMARY | ~2019-11-16 | XMS | Encounter Summary ---
Demographics + + + | Address | [address] | | | [place] [address] | + + + | Home Phone [...] + + + + | 05/13/ | [facility] | [facility] | Dom Graham, | | | 2010 | Encounter | MED CTR EMERGENCY | [address] | | | | | CENTER [address] | [place] | | | | | [place] | [address] | | | | | [address] | | | | | | [phone] | | | +--------+ + + + [...] Interrogation | | | | | [place], | (Primary Dx); | | | | | [place] [address] | Presence of | | | | | [phone] | permanent cardiac | | | | [...] Interrogation | | | | | [place], | (Primary Dx); | | | | | [place] [address] | Presence of | | | | | [phone] | permanent cardiac | | | | [...] W | | | | | | [place], | | | | | | [place] [address] | | | | | | [phone] | | | | | | | [...] | | | | | the Javid Winner | | | | | | Access Analyzer. | | | | + + + + + + + + | Specimen | + + | | + + + + + + + | Performing | Address | City/State/Zipcode | Phone Number | | Organization | | | | + + + + + | [facility] | [address] | [place], [place] | [phone] | | [facility] | | [address] | | | - LABORATORY | | | | + + + + + | [facility] | [address] | [place], [place] | | | [facility] | | [address] | | | - LABORATORY | | [...] | | | | M/uL | [facility] | | | | [...] [address] | [place] | [phone] | | [facility] | | [address] | | | - LABORATORY | | | | + + + + + | [facility] | [address] | [place] | | | [facility] | | [address] | | | - LABORATORY | | [...] [address] | [place] | [phone] | | [facility] | | [address] | | | - LABORATORY | | | | + + + + + | [facility] | [address] | [place] | | | [facility] | | [address] | | | - LABORATORY | | [...] | | | | | | the [employer] | | | | | | Access Analyzer. | | | | + + + + + + + + | Specimen | + + | | + + + + + + + | Performing | Address | City/State/Zipcode | Phone Number | | Organization | | | | + + + + + | [facility] | [address] | [place] | [phone] | | [facility] | | [address] | | | - LABORATORY | | | | + + + + + | [facility] | [address] | [place] | | | [facility] | | [address] | | | - LABORATORY | | | | + + + + + XR Chest AP Portable (05/13/2011 3:01 PM PDT) + + | Specimen | + + | | + + + + + | Narrative | Performed At | + + + | [facility] Diagnostic [facility] Department | [facility] | | [address] [facility][1] | [facility] | | PORTABLE CHEST CLINICAL | DIAG [...] Transcribed Date/Time: | | | 05/13/2011 17:06 Steam Bone Press Tender: <Electronically Signed | | | by Jama Solis MD> 05/13/112038 | | + + + + + | Procedure Note | + + | Kevin, Rad Conversion - 12/29/2013 3:12 PM [facility] | | Diagnostic Imaging Department [address] [facility] | | PORTABLE CHEST CLINICAL HISTORY: TACHYCARDIA. [...] 16:57 | |Transcribed Date/Time: 05/13/2011 17:06 | |Steam Bone Press Tender: | |<Electronically Signed by Jama Solis [...]
--- OUTSIDE RECORDS SUMMARY | ~2019-11-16 | XMS | Encounter Summary ---
Demographics + + + | Address | [address] | | | [place] [address] | + + + | Home Phone [...] Team Providers + +------+ + | Care Yoker Machine Operator Name | Role | Phone [...] | | | | Sinoatrial | Geri, RELIEF MATE | [address] | | | | | node | [address] | [place], | | | | | dysfunction | [place] | [place] | | | | | (HCC) | [place] | [address] | | | | | Coronary | [address] | Phone: | | | | | artery | Phone: | [phone] | | | | | disease | [phone] | Fax: | | | | | involving | Fax: | [phone] | | | | | [place] | [phone] | | | | | | coronary | | | | | | | artery of | | | | | | | [place] heart | | | | | | [...] | Visit | CARDIOLOGY [address] | RELIEF MATE [address] | dysfunction (HCC) | | | | [place], | [place], [place] | with symptomatic | | | | [place] [address] | [address] | bradycardia (Primary | | | | [phone] | | Dx); Coronary | | | | | | artery disease | | | | | | involving [place] | | | | | | coronary artery of | | | | | | [place] heart without | | | | | [...] care Coronary artery disease involving [place] coronary artery without angina pectoris Cannabis abuse, [...] 3rd dose, call 911 100 tablet 3 [place]-3 Fatty Acids (SALMON OIL-1000 PO) CAPS, one capsule by mouth daily twice daily ONE TOUCH DELICA LANCETS [facility] Check glucose as needed for hypoglycemia 100 [...] scanned Paceart documentation and device PDF in [employer] for interrogation (with progr amming changes) performed [...] to go back in 3 days to Lucien for an attempt of ablation under general [...] this chart may have been created with [employer] voice recognition software. Occasi onal wrong-word or [...] Dx); | | | | | [place] [address] | Presence of | | | | | [phone] | permanent cardiac | | | | [...] 2018 | Monitor | | [address] [place] | Interrogation | | | | | [place], | (Primary Dx); | | | | | [place] [address] | Presence of | | | | | [phone] | permanent cardiac | | | | [...] | | | | | | [place], | | | | | | [place] [address] | | | | | | [phone] | | | | | | | [...] VICTOR HUGO | [facility] | | [place] Room Number SARAH Patient | [facility] | | [id number] Date of Study 06/16/2016 Number | - IMAGING | | Visit Number [id number] | | | Referring Physician JOSE ARMANDO GARCIA Number Date of 1960 | | | Systems Test Analyst LUIS FERNANDO DUARTE Age | | | 56 year(s) Interpreting | | | GURJIT TROY | | | Metallic Yarn Slitting Machine Operator SYDNI SINGLETARY, | | | Gender | | | Male Nurse Procedure Type of Study TTE | | | procedure: ECHO Complete. Procedure dateDate: 06/16/2016Start: 10:55 | | | AM Technical Quality: Adequate visualizationStudy Location: Echo | | | LabIndications: CAD [place] CORONARY ARTERY 414.01/ I25.10 and | | [...] BARRY Room Number SARAH | | Patient [id number] Date of Study 06/16/2016 Number Visit Number | | [id number] Referring Physician JOSE ARMANDO GARCIA Number | | Date of 1960 Systems Test Analyst LUIS FERNANDO DUARTE Age | | 56 year(s) Interpreting GURJIT TROY | | Metallic Yarn Slitting Machine Operator SYDNI SINGLETARY, | | Gender Male NurseProcedureType of Study TTE | | procedure: ECHO Complete.Procedure dateDate: 06/16/2016Start: 10:55 AMTechnical Quality: | | Adequate visualizationStudy Location: Echo LabIndications: CAD [place] CORONARY ARTERY | | 414.01/ I25.10 and [...] + | [facility] | [address] | [place] | [phone] | | [facility] | | [address] | | | - IMAGING | | [...] | | 2. Coronary artery disease involving [place] coronary artery of | | | [place] heart without angina pectoris I25.10 414.01 ECHO [...] | Coronary artery disease involving [place] coronary artery of [place] heart without | | angina pectoris | [...]
--- OUTSIDE RECORDS SUMMARY | ~2019-11-16 | XMS | Encounter Summary ---
Demographics + + + | Address | [address] | | | [place] [address] | + + + | Home Phone [...] Team Providers + +------+ + | Care Approver Name | Role | Phone | [...] | Palpitations | [address] | | | | | Procedures | [address] | [address] [place] | | | | | ECHO | [place], | [place], [place] | | | | | Complete | [place] [address] | [address] | | | | | | Phone: | Phone: | | | | | | [phone] | [phone] | | | | | | Fax: | Fax: | | | | | | [phone] | [phone] | +--------+--------+ + + + + Encounter Details +--------+ + + + + | Date | Type | Department | Care Team | Description | +--------+ + + + + | 12/30/ | Hospital | [facility] | TimmyshaistateshaShaistatimmy, | Palpitations | | 2012 - | Encounter | MED CTR XRAY [address] | MD [address] | | | | | [address] [place] | [address], | | | 01/01/ | | [place] [address] | [place] [address] | | | 2012 | | [phone] | [phone] | | | | | | | [...] Interrogation | | | | | [facility], | (Primary Dx); | | | | | [place] [address] | Presence of | | | | | [phone] | permanent cardiac | | | | [...] Interrogation | | | | | [place], | (Primary Dx); | | | | | [place] [address] | Presence of | | | | | [phone] | permanent cardiac | | | | [...] | | | | | [address] [place], | | | | | | [place] [address] | | | | | | [phone] | | | | | | | [...] & [facility] Diagnostic Imaging | [facility] | | Department [address] [facility] | [facility] | | [ rep ct [address]] [ rep [facility] | | st zip] Signed | - IMAGING | | | | | Patient Name: MOE GAY | | | Physician: MIGUELINA : 1960 Age: 52 Sex: M Unit | | | #: [id number] Exam Date: 12/30/12 Location: | | | [facility] Report #: [id number] Page: | | | %(RAD)RES..mtdd.print.filter("pg") of %(RAD) | | | RES..mtdd.print.filter("tpg") | | | | | | Accession Number: [id number] | | | E C H O C A R D I O G R A P H Y R E P O R T | | | HEIGHT: 76" WEIGHT: 270# | | | LIBRARY SCIENCE PROFESSOR: JAMEEL REFERRING DR: TIMMY DRAKE DR: | [...] | | | Transcribed Date/Time: 12/30/2012 16:34 Resource Conservationist: | | | <<Signature on File>> | | | Daljit | | | MD [facility] FASE01/02/13 0955 <Electronically signed by | | | Daljit Singletary MD, [facility], FACP, FASNanette, FASRAUL> Daljit | | | MD [facility] [facility] ADELINE 12/30/12 1608 Resource Conservationist: Jessica | | | Vdrorrpxqkail12/08/13 1634 Daljit Singletary MD [facility] | | | ADELINE | | + + + + + + + + | Performing | Address | City/State/Zipcode | Phone Number | | Organization | | | | + + + + + | [facility] | [address] | [place] | [phone] | | [facility] | | [address] | | | - IMAGING | | | | + + + + + documented in this encounter Visit Diagnoses + + | Diagnosis | + + | Palpitations | + + documented in this encounter
--- OUTSIDE RECORDS SUMMARY | ~2019-11-16 | XMS | Encounter Summary ---
Demographics + + + | Address | [address] | | | [place] [address] | + + + | Home Phone [...] Providers + +------+ + | Care Agricultural Chemicals Inspector Name | Role | Phone | [...] + + | 02/01/ | Telephone | [facility] | Silvia, | Other (unable to | | 2013 | | CARDIOLOGY [address] | [place] [address] | take the isosorbide) | | | | [place], | [place], | | | | | [place] [address] | [place] [address] | | | | | [phone] | [phone] | | | | | | | [...] Interrogation | | | | | [place], | (Primary Dx); | | | | | [place] [address] | Presence of | | | | | [phone] | permanent cardiac | | | | [...] Interrogation | | | | | [facility], | (Primary Dx); | | | | | [place] [address] | Presence of | | | | | [phone] | permanent cardiac | | | | [...] W | | | | | | [place], | | | | | | [place] [address] | | | | | | [phone] | | | | | | | | +--------+ + + + + documented as of this encounter Visit Diagnoses + + | Diagnosis | + + | Coronary artery disease - Primary Coronary atherosclerosis of unspecified type of | | vessel, [place] or graft | + + | Hypertension Unspecified essential hypertension | + + | Hyperlipidemia Other and unspecified hyperlipidemia | + + documented in this encounter"
--- OUTSIDE RECORDS SUMMARY | ~2019-11-16 | XMS | Encounter Summary ---
Demographics + + + | Address | [address] | | | [place] [address] | + + + | Home Phone [...] Providers + +------+ + | Care Senior Sales Representative Name | Role | Phone [...] [address] | | | | | [place] | [address] [place], | | | | | [place] [address] | [place] [address] | | | | | [phone] | [phone] | | | | | | | [...] + + + +---------+ + + | Timewell-3 Fatty | CAPS, one capsule by | [...] Dx); | | | | | [place] [address] | Presence of | | | | | [phone] | permanent cardiac | | | | [...] Dx); | | | | | [place] [address] | Presence of | | | | | [phone] | permanent cardiac | | | | [...] W | | | | | | [place], | | | | | | [place] [address] | | | | | | [phone] | | | | | | | | +--------+ + + + + documented as of this encounter Visit Diagnoses Not on filedocumented in this encounter"
--- OUTSIDE RECORDS SUMMARY | ~2019-11-16 | XMS | Encounter Summary ---
Demographics + + + | Address | [address] | | | [place] [address] | + + + | Home Phone [...] Providers + +------+ + | Care Forest Pathology Teacher Name | Role | Phone [...] | | | [place], [place] | [place] [address] | | | | | | [address] | Phone: | | | | | | Phone: | [phone] | | | | | | [phone] | Fax: | | | | | | Fax: | [phone] | | | | | | [phone] | | +--------+ + + + + + Reason for Visit + + + | Reason | Comments | + + + | Medicare Wellness | | + + + Encounter Details +--------+---------+ + + + | Date | Type | Department | Care Team | Description | +--------+---------+ + + + | 07/25/ | Office | [facility] | Michael Amanda, | Preventative health | | 2014 | Visit | MEDIC[facility] [place] | DO [address] | care (Primary Dx); | | | | [address] | [place] | Cannabis abuse, | | | | [place] | [address] | daily use; Urinary | | | | [address] | | frequency; | | | | [phone] | | Incontinence; | | | | [...] needed for Chest pain. 25 tablet 12 [place]-3 Fatty Acids (SALMON OIL-1000 PO) CAPS, one [...] as Nurse Practitioner (Cardiology) FENG Chou (Physician Financial Consultant) Current Medicare Suppliers: [facility] - [place], [place] - [address] [place] [address] [facility] - [place], [place] - [address] [place] [address] HEALTH RISK ASSESSMENT: : The patient or [...] following health maintenance items are reviewed in [facility] and correct as of [...] no kevin in the usual sections in Diss[employer]. documented in this en counter Plan of Treatment +--------+ + + + + | Date | Type | Specialty | Care Team | Description | +--------+ + + + + | 11/20/ | Implant | Cardiology | Daljit Singletary, | Remote Device | | 2019 | Monitor | | [address] [facility] | Interrogation | | | | | [place], | (Primary Dx); | | | | | [place] [address] | Presence of | | | | | [phone] | permanent cardiac | | | | [...] Interrogation | | | | | [place], | (Primary Dx); | | | | | [place] [address] | Presence of | | | | | [phone] | permanent cardiac | | | | [...] W | | | | | | [place], | | | | | | [place] [address] | | | | | | [phone] | | | | | | | [...]
--- OUTSIDE RECORDS SUMMARY | ~2019-11-16 | XMS | Encounter Summary ---
Demographics + + + | Address | [address] | | | [place] [address] | + + + | Home Phone [...] Providers + +------+ + | Care Correctional Case Manager Name | Role | Phone [...] | | [address] | [place] [address] | | | | | [place] | [phone] | | | | | [address] | | | | | | [phone] | | | +--------+ + + + [...] MD [facility] | Interrogation | | | | | [place], | (Primary Dx); | | | | | [place] [address] | Presence of | | | | | [phone] | permanent cardiac | | | | [...] MD [facility] | Interrogation | | | | | [place], | (Primary Dx); | | | | | [place] [address] | Presence of | | | | | [phone] | permanent cardiac | | | | [...] W | | | | | | [facility] [place], | | | | | | [place] [address] | | | | | | [phone] | | | | | | | | +--------+ + + + + documented as of this encounter Visit Diagnoses Not on filedocumented in this encounter"
--- OUTSIDE RECORDS SUMMARY | ~2019-11-16 | XMS | Encounter Summary ---
Demographics + + + | Address | [address] | | | [place] [address] | + + + | Home Phone [...] Team Providers + +------+ + | Care Armored Car Guard Name | Role | Phone | [...] | 07/07/ | Telephone | [facility] [place] | Daljit Singletary, | Appointment | | 2012 | | CARDIOLOGY [address] | MD [address] | | | | | [place], | [place], | | | | | [place] [address] | [place] [address] | | | | | [phone] | [phone] | | | | | | | [...] 2018 | Monitor | | MD [address] | Interrogation | | | | | [place], | (Primary Dx); | | | | | [place] [address] | Presence of | | | | | [phone] | permanent cardiac | | | | [...] Dx); | | | | | [place] [address] | Presence of | | | | | [phone] | permanent cardiac | | | | [...] | | | | | | [place] [address] | | | | | | [phone] | | | | | | | | +--------+ + + + + documented as of this encounter Visit Diagnoses Not on filedocumented in this encounter"
--- OUTSIDE RECORDS SUMMARY | ~2019-11-16 | XMS | Encounter Summary ---
Demographics + + + | Address | [address] | | | [place] [address] | + + + | Home Phone [...] Phone | + + +---------+ + | Mari aIsabel Sanchez | ECON | Unknown | | + + +---------+ + Care Team Providers + +------+ + | Care Machine Fitter Name | Role | Phone | [...] | | | | exertion | | [place] | | | | | Chest pain | | [place], [place] | | | | | on exertion | | [address] | | | | | | | Phone: | | | | | | | [phone] | | | | | | | Fax: | | | | | | | [phone] | +--------+--------+ + + + + Encounter Details +--------+ + + + + | Date | Type | Department | Care Team | Description | +--------+ + + + + | 04/27/ | [facility] Martell Hart | Chest pain on | | 2014 - | | [facility] | Sanjay Palacios MD | exertion (Primary | | | | [address] [place] | [address] | Dx); Dyspnea on | | 03/20/ | | [place] [address] | [place] | exertion; Essential | | 2014 | | [phone] | [address] | hypertension; Acute | | | | | | chest pain; | | | | | Parth Kraft, | Dizziness, | | | | | [address] | nonspecific; Mixed | | | | | [place] | anxiety depressive | | | | | [address] | disorder; PUD | | | | | [phone] | (peptic ulcer | | | | [...] 911 aka: NITROSTAT ONE TOUCH DELICA LANCETS [facility] Check glucose as needed for hypoglycemia OSTEO [...] Daily. to reduce urinary frequency - Lot #[id number], exp 07/2016 aka: RAPAFLO UNCODED MEDICATION - [...] hospital follow up Contact information: [address] [address] Call PARISA Russell. Specialty: Nurse Practitioner Why: As needed Contact information: [address] [place] [address] Condition: Patient being discharged with condition improved. Diet: Heart healthy, avoid acidic drinks and foods, spicy foods, too much coffee. Greater than 30 minutes were spent on discharge and coordination of post-hospital care. Electronically signed by: Thierry Fregoso DO, 03/20/2015 11:22 [facility] Portions of this chart may have been created with [employer] voice recognition software. Occasi onal wrong-word or [...] afford the prescribed medication, you can try zfvv-yju-lftpzas acid blockers, such as Pepcid AC, Tagamet, [...] or as directed by your healthcare provider [phone] [employer]. [address] [place] [address]. All righ ts reserved. This information is [...] + + + +---------+ + + | Leslie-3 Fatty | CAPS, one capsule by | [...] | | | | | | | #[id number], exp 07/2016 | | | | | [...] Sanchez : 1960: Age: 55 y.o. MedRec: [id number] PCP: Kirk French Admission date: 03/18/2015 Hospital [...] 1708 03/18/15 1528 TROPONINI <0.01 <0.01 0.01 [facility] ECHOCARDIOGRAM REPORT STUDY DATE: 03/19/2015 PATIENT NAME: [...] changes. No results for input(s): PHART, PO2ART, OMX2ZEK, VXD1OSU, BEART, X2MBPEYX in the last 168 h ours. No results for input(s): SPECSOURCE, PHPOCB, HCO3, TCO2, BEART, BE, PDAF8FRH in the last 16 8 hours. Invalid input(s): RBUZB9PA, SZRO8KF Point of care glucose: No results for [...] minutes today. Thierry Fregoso DO 03/19/2015 22:09 [facility] Portions of this chart may have been created with [employer] voice recognition software. Occasi onal wrong-word or sound-alike substitutions may have occurred due to the inherent granger itations of voice recognition software. Please read the chart carefully and recognize, using context, where these substitutions have occurred Belén Cho RN - 03/19/2015 11:03 AM [id number] Report given to Marlen morejon who is [...] | Monitor | | MD [address] [place] | Interrogation | | | | | [place], | (Primary Dx); | | | | | [place] [address] | Presence of | | | | | [phone] | permanent cardiac | | | | [...] 2018 | Monitor | | [address] | Interrogation | | | | | [place], | (Primary Dx); | | | | | [place] [address] | Presence of | | | | | [phone] | permanent cardiac | | | | [...] W | | | | | | [place], | | | | | | [place] [address] | | | | | | [phone] | | | | | | | [...] Performed At | + + + | [facility] ECHOCARD[facility]GRAM REPORT | | | STUDY DATE: [...] | | Signed by: Daljit Singletary MD [facility] 03/19/2015 15:44 | | | Loading Shovel Oiler: Dewey Valdez RDMS | | + + [...] | | | | | | [employer] | | | | | [...] [address] | [place] | [phone] | | [facility] | | [address] | | | - LABORATORY | | [...] | 0.90 | 0.60 - 1.30 | [facility] | | | | | mg/dL [...] mL/min/1.73m2 | [facility] | | | [place] | RATE,ESTIMATED | | MEDICAL | | | | mL/min/1.66g8Stgr than | | CENTER - | | [...] + | [facility] | [address] | [place] | [phone] | | [facility] | | [address] | | | - LABORATORY | | [...] [address] | [place] | [phone] | | [facility] | | [address] | | | - LABORATORY | | [...] | | | | | | [employer] | | | | | [...] [address] | [place] | [phone] | | [facility] | | [address] | | | - LABORATORY | | [...] [address] | [place] | [phone] | | [facility] | | [address] | | | - LABORATORY | | [...] [address] | [place] | [phone] | | [facility] | | [address] | | | - LABORATORY | | [...] | + + + + + | [facility] [facility] | [address] | [place] | [phone] | | [facility] | | [address] | | | - LABORATORY | | [...] [address] | [place] | [phone] | | [facility] | | [address] | | | - LABORATORY | | [...] | | | | | | [employer] | | | | | [...] + | [address] [facility] | [address] | [place] | [phone] | | [facility] | | [address] | | | - LABORATORY | | [...] [address] | [place] | [phone] | | [facility] | | [address] | | | - LABORATORY | | [...] 18 | 7 - 18 mg/dL | [facility] | | | | | | [facility] | | | | | | MEDICAL | | | | | | CENTER - | | | | | | LABORATORY | | + + + + + + | Creatinine | 0.97 | 0.60 - 1.30 | [facility] | | | | | mg/dL [...] mL/min/1.73m2 | [facility] | | | [place] | RATE,ESTIMATED | | MEDICAL | | | | mL/min/1.82d5Bqan than | | CENTER - | | [...] [address] | [place] | [phone] | | [facility] | | [address] | | | - LABORATORY | | [...] ST. | [address] | [place] | [phone] | | [facility] | | [address] | | | - LABORATORY | | [...]
--- OUTSIDE RECORDS SUMMARY | ~2019-11-16 | XMS | Encounter Summary ---
Demographics + + + | Address | [address] | | | [place] [address] | + + + | Home Phone [...] Team Providers + +------+ + | Care Machining Engineer Name | Role | Phone | [...] | 07/30/ | Telephone | [facility] [place] [facility] | Michael Amanda, | Results | | 2013 | | [facility]IC[facility] [place] | DO [address] | | | | | [address] | [place] | | | | | [place] | [address] | | | | | [address] | | | | | | [phone] | | | +--------+ + + + [...] 2018 | Monitor | | MD [address] [facility] | Interrogation | | | | | [place], | (Primary Dx); | | | | | [place] [address] | Presence of | | | | | [phone] | permanent cardiac | | | | [...] Dx); | | | | | [place] [address] | Presence of | | | | | [phone] | permanent cardiac | | | | [...] W | | | | | | [place], | | | | | | [place] [address] | | | | | | [phone] | | | | | | | | +--------+ + + + + documented as of this encounter Visit Diagnoses Not on filedocumented in this encounter"
--- OUTSIDE RECORDS SUMMARY | ~2019-11-16 | XMS | Encounter Summary ---
Demographics + + + | Address | [address] | | | [place] [address] | + + + | Home Phone [...] Providers + +------+ + | Care Supervisor Stage Carpentry Name | Role | Phone | + [...] 2014 | | CARDIOLOGY [address] | MOBILE SALES EXPERT [address] | | | | | [place], | [place], [place] | | | | | [place] [address] | [address] | | | | | [phone] | | | +--------+ + + + [...] 2019 | Monitor | | MD [address] [place] | Interrogation | | | | | [place], | (Primary Dx); | | | | | [place] [address] | Presence of | | | | | [phone] | permanent cardiac | | | | [...] | | MD [address] [facility] | Interrogation | | | | | [place], | (Primary Dx); | | | | | [place] [address] | Presence of | | | | | [phone] | permanent cardiac | | | | [...] | | | | | | [place] [address] | | | | | | [phone] | | | | | | | | +--------+ + + + + documented as of this encounter Visit Diagnoses Not on filedocumented in this encounter"
--- OUTSIDE RECORDS SUMMARY | ~2019-11-16 | XMS | Encounter Summary ---
Demographics + + + | Address | [address] | | | [place] [address] | + + + | Home Phone [...] Providers + +------+ + | Care Wire Weaver Cloth Name | Role | Phone | + [...] | CARDIOLOGY [address] | Janeen, TEST DESKMAN [address] | Clearance) | | | | [place], | [place], | | | | | [place] [address] | [place] [address] | | | | | [phone] | [phone] | | | | | | | [...] Dx); | | | | | [place] [address] | Presence of | | | | | [phone] | permanent cardiac | | | | [...] | 2019 | Monitor | | [address] [place] | Interrogation | | | | | [place], | (Primary Dx); | | | | | [place] [address] | Presence of | | | | | [phone] | permanent cardiac | | | | [...] W | | | | | | [place], | | | | | | [place] [address] | | | | | | [phone] | | | | | | | | +--------+ + + + + documented as of this encounter Visit Diagnoses Not on filedocumented in this encounter"
--- OUTSIDE RECORDS SUMMARY | ~2019-11-16 | XMS | Encounter Summary ---
Demographics + + + | Address | [address] | | | [place] [address] | + + + | Home Phone [...] Team Providers + +------+ + | Care Semi Driver Name | Role | Phone | [...] CARDIOLOGY [address] | MD [address] | Dx); SINUS | | | | [place], | [place], | [place] | | | | [place] [address] | [place] [address] | | | | | [phone] | [phone] | | | | | | | [...] Dx); | | | | | [place] [address] | Presence of | | | | | [phone] | permanent cardiac | | | | [...] Interrogation | | | | | [place], | (Primary Dx); | | | | | [place] [address] | Presence of | | | | | [phone] | permanent cardiac | | | | [...] W | | | | | | [place], | | | | | | [place] [address] | | | | | | [phone] | | | | | | | | +--------+ + + + + documented as of this encounter Visit Diagnoses + + | Diagnosis | + + | Chest pain - Primary Chest pain, unspecified | + + | SINUS BRADYCARDIA Sinoatrial node dysfunction | + + documented in this encounter
--- OUTSIDE RECORDS SUMMARY | ~2019-11-16 | XMS | Encounter Summary ---
Demographics + + + | Address | [address] | | | [place] [address] | + + + | Home Phone [...] Team Providers + +------+ + | Care Bluing Oven Tender Name | Role | Phone | [...] 2019 | | GASTROENTEROLOGY | [address], [place] | | | | | [address] [place] | [address] [place], [place] | | | | | [address] [place], [place] | [address] | | | | | [address] | | | | | | [phone] | | | +--------+ + + + [...] | Interrogation | | | | | [facility] (Primary Dx); | | | | | [place] [address] | Presence of | | | | | [phone] | permanent cardiac | | | | [...] Dx); | | | | | [place] [address] | Presence of | | | | | [phone] | permanent cardiac | | | | [...] W | | | | | | [place], | | | | | | [place] [address] | | | | | | [phone] | | | | | | | | +--------+ + + + + documented as of this encounter Visit Diagnoses Not on filedocumented in this encounter"
--- OUTSIDE RECORDS SUMMARY | ~2019-11-16 | XMS | Encounter Summary ---
Demographics + + + | Address | [address] | | | [place] [address] | + + + | Home Phone [...] Providers + +------+ + | Care Automation Lead Name | Role | Phone | [...] | | | | CENTER [address] | [place] | (Primary Dx) | | 07/28/ | | [place] | [address] | | | 2017 | | [address] | | | | | | [phone] | | | +--------+ + + + [...] sent through Care Everywhere.Chest Pain, Non cardiac (Indonesian)documented in this encounter Medications at Time [...] + + + +---------+ + + | Gibbon Glade-3 Fatty | CAPS, one capsule by | [...] | Monitor | | MD [address] | Interrogation | | | | | [place], | (Primary Dx); | | | | | [place] [address] | Presence of | | | | | [phone] | permanent cardiac | | | | [...] | Monitor | | MD [address] | Interrogation | | | | | [place], | (Primary Dx); | | | | | [place] [address] | Presence of | | | | | [phone] | permanent cardiac | | | | [...] [place], | | | | | | [place] [address] | | | | | | [phone] | | | | | | | [...] W?MRN: | | | | | | [id number] | | | [id number] | | | his | | | [...] | | | ent/60 | | | [id number] | | | -5586- | | | [...] | | | St. | | | [place] | | | y | | | [...] | | | ext. | | | [address] | | | or go | | [...] | | | M.D. | | | Business Operations Consultant | | | al | | | [...] | | | [place] | | | [place] | | | City, | | | [...] [address] | [place] | [phone] | | [facility] | | [address] | | | - LABORATORY | | [...] 14 | 7 - 18 mg/dL | [facility] | | | | | | [facility] | | | | | | MEDICAL | | | | | | CENTER - | | | | | | LABORATORY | | + + + + + + | Creatinine | 1.06 | 0.60 - 1.30 | [facility] | | | | | mg/dL | [facility] | | | | | | MEDICAL | | | | | | CENTER - | | | | | | LABORATORY | | + + + + + + | eGFR if not | >60Comment: GLOMERULAR | >=60 | [facility] | | | | FILTRATION | mL/min/1.73m2 | [address] [place] | | | [place] | RATE,ESTIMATED | | MEDICAL | | | | mL/min/1.27t0Ujti than | | CENTER - | | [...] [address] | [place] | [phone] | | [facility] | | [address] | | | - LABORATORY | | [...] + | [facility] | [address] | [place] | [phone] | | [facility] | | [address] | | | - LABORATORY | | [...] | | | | | | ANGELA AMRADIAGA MD ([id number]) | | | | | | on [...]
--- OUTSIDE RECORDS SUMMARY | ~2019-11-16 | XMS | Encounter Summary ---
Demographics + + + | Address | [address] | | | [place] [address] | + + + | Home Phone [...] Providers + +------+ + | Care Hotel Engineer Name | Role | Phone | [...] [address] | | | | | [place], [place] | [place], [place] | | | | | [address] | [address] | | | | | [phone] | | | +--------+ + + + [...] Interrogation | | | | | [place], | (Primary Dx); | | | | | [place] [address] | Presence of | | | | | [phone] | permanent cardiac | | | | [...] | Monitor | | MD [address] | Interrogation | | | | | [place], | (Primary Dx); | | | | | [place] [address] | Presence of | | | | | [phone] | permanent cardiac | | | | [...] | | | | | | [place] [address] | | | | | | [phone] | | | | | | | | +--------+ + + + + documented as of this encounter Visit Diagnoses Not on filedocumented in this encounter"
--- OUTSIDE RECORDS SUMMARY | ~2019-11-16 | XMS | Encounter Summary ---
Demographics + + + | Address | [address] | | | [place] [address] | + + + | Home Phone [...] Providers + +------+ + | Care Electrician Deck Name | Role | Phone | + [...] Refill | | 2012 | | MEDICINE [place] | DO [address] | | | | | [address] | [place] | | | | | [place] | [address] | | | | | [address] | | | | | | [phone] | | | +--------+--------+ + + + [...] | Monitor | | MD [address] | Interrogation | | | | | [place], | (Primary Dx); | | | | | [place] [address] | Presence of | | | | | [phone] | permanent cardiac | | | | [...] | Monitor | | MD [address] [place] | Interrogation | | | | | [place], | (Primary Dx); | | | | | [place] [address] | Presence of | | | | | [phone] | permanent cardiac | | | | [...] | | | | | | [place] [address] | | | | | | [phone] | | | | | | | | +--------+ + + + + documented as of this encounter Visit Diagnoses Not on filedocumented in this encounter"
--- OUTSIDE RECORDS SUMMARY | ~2019-11-16 | XMS | Encounter Summary ---
Demographics + + + | Address | [address] | | | [place] [address] | + + + | Home Phone [...] Providers + +------+ + | Care Track Walker Name | Role | Phone | [...] + + | 06/26/ | Office | [facility] | Geri Angel, | Coronary artery | | 2015 | Visit | CARDIOLOGY [address] | HOSPITAL PERSONNEL DIRECTOR [address] | disease involving | | | | [place], | [facility] [facility], [place] | table [place] coronary | | | | [place] [address] | [address] | artery without | | | | [phone] | | angina pectoris | | | [...] not occur with exertion. He went to [facility] at the end of for his [...] it. He is planning to travel to [facility] in the ve ry near future for up to a month due to his cjilby-dm-otz having a significant stroke there MEDICAL, SURGICAL, [...] artery disease involving [place] coronary artery without angina pectoris Cannabis [...] by mouth Daily. 30 tabl et 6 [facility] [...] 3rd dose, call 911 25 tablet 11 Moffit-3 Fatty Acids (SALMON OIL-1000 PO) CAPS, one capsule by mouth daily twice daily ONE TOUCH DELICA LANCETS [facility] Check glucose as needed [...] Daily. 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 Leads: Right atrium and right ventricle (dual [...] to go back in 3 days to [place] for an attempt of ablation under general [...] this chart may have been created with [employer] voice recognition software. Occasi onal wrong-word or [...] | Monitor | | MD [address] | Interrogation | | | | | [place], | (Primary Dx); | | | | | [place] [address] | Presence of | | | | | [phone] | permanent cardiac | | | | [...] | Monitor | | MD [address] | Interrogation | | | | | 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 Leads: Right atrium and right | | [...] artery disease involving [place] coronary artery without angina pectoris - | | Primary | + + | SINUS BRADYCARDIA Sinoatrial node dysfunction | + + | Essential hypertension Unspecified essential hypertension | + + | Hyperlipidemia Other and unspecified hyperlipidemia | + + | Symptomatic PVCs Other premature beats | + + documented in this encounter
--- OUTSIDE RECORDS SUMMARY | ~2019-11-16 | XMS | Encounter Summary ---
Demographics + + + | Address | [address] [place] [address] | | | [place] [address] | + + + | Home Phone [...] [place] | | | | | [address] | | + + + + + [...] | | | | [address] | [place], [place] | | | | | Mailcode: [place] | [address] | | | | | for Health and | [phone] | | | | | [facility] [address] | | | | | | [place], [place] | | | | | | [address] | | | | | | [phone] | | | +--------+ + + + [...]
--- OUTSIDE RECORDS SUMMARY | ~2019-11-16 | XMS | Encounter Summary ---
Demographics + + + | Address | [address] | | | [place] [address] | + + + | Home Phone [...] + +------+ + | Care Supply Chain Project Manager Name | Role | Phone [...] [place] | | | | | | [address] | | | | | | [phone] | | | +--------+ + + + [...] | Monitor | | MD [address] | Interrogation | | | | | [place], | (Primary Dx); | | | | | [place] [address] | Presence of | | | | | [phone] | permanent cardiac | | | | [...] | Monitor | | MD [address] | Interrogation | | | | | [place], | (Primary Dx); | | | | | [place] [address] | Presence of | | | | | [phone] | permanent cardiac | | | | [...] | | | | | | [place] [address] | | | | | | [phone] | | | | | | | | +--------+ + + + + documented as of this encounter Visit Diagnoses Not on filedocumented in this encounter"
--- OUTSIDE RECORDS SUMMARY | ~2019-11-16 | XMS | Encounter Summary ---
Demographics + + + | Address | [address] | | | [place] [address] | + + + | Home Phone [...] Providers + +------+ + | Care Radiation Protection Specialist Name | Role | Phone [...] + + | 01/05/ | Office | [facility] | Silvia, | Pacemaker - | | 2018 | Visit | CARDIOLOGY [address] | [address] | [employer] - [id number] | | | | [place], | [place], | [employer] | | | | [place] [address] | [place] [address] | 06/14/2009 (Primary | | | | [phone] | [phone] | Dx); Chest pain, | | | [...] involving | | | | | | agdaagux coronary | | | | | | artery of agdaagux | | | | | | heart [...] of non-critical coronary artery d isease involving agdaagux coronary artery of agdaagux heart without angina pectoris, essential h ypertension, [...] pain. He went to the ER in [place] because th e NTG didn't relieved the pain. He was diagnosed with bronchitis. Otherwise he has had no ot her symptoms. He has had a good energy level. He tries to stay active. He has joined a [employer] gym and trying to exercise more often. [...] Preventative health care Coronary artery disease involving agdaagux coronary artery of agdaagux heart without angina pectoris Cannabis abuse, daily [...] by mouth every evening 90 tablet 0 [facility] [...] 3RD DOSE, CALL 911 100 tablet 3 [place]-3 Fatty Acids (SALMON OIL-1000 PO) CAPS, one [...] reviewed during visit today primarily from [facility]: LIPID Lab Results Component Value Date [...] (A) 10/18/2017 I reviewed records from [facility] for office visit on 01/2017 whic [...] overload. 2. Non-critical Coronary artery disease involving agdaagux coronary a rtery of agdaagux heart without angina pectoris: A. Normal exercise [...] to go back in 3 days to [place] for an attempt of ablation under general [...] this chart may have been created with [employer] voice recognition software. Occasi onal wrong-word or [...] Dx); | | | | | [place] [address] | Presence of | | | | | [phone] | permanent cardiac | | | | [...] Dx); | | | | | [place] [address] | Presence of | | | | | [phone] | permanent cardiac | | | | [...] W | | | | | | [place], | | | | | | [place] [address] | | | | | | [phone] | | | | | | | [...] dysfunction | | | | | | ([facility]) with | | | | | | symptomatic | | | | | | bradycardia | | | | | | Symptomatic PVCs | | | | | | Tachycardia | | | | | | Coronary artery | | | | | | disease involving | | | | | | agdaagux coronary | | | | | | artery of agdaagux | | | | | | heart [...] SYDNI | | | | | | ([id number]) on 01/06/2018 | | | | | [...] + + | Coronary artery disease involving agdaagux coronary artery of agdaagux heart without | | angina pectoris | + + | Hyperlipidemia, mixed Mixed hyperlipidemia | + + | Hypertension, unspecified type | + + | Syncope, unspecified syncope type | + + | Ascending thoracic aortic aneurysm (HCC) Thoracic aneurysm without mention of rupture | + + documented in this encounter
--- OUTSIDE RECORDS SUMMARY | ~2019-11-16 | XMS | Encounter Summary ---
Demographics + + + | Address | [address] | | | [place] [address] | + + + | Home Phone [...] Providers + +------+ + | Care Impregnator And Drier Helper Name | Role | Phone | [...] 2019 | | GASTROENTEROLOGY | [address] [place] [place] | Recommendations | | | | [address] [place] | [address] [place], [place] | | | | | [address] [place], [place] | [address] | | | | | [address] | | | | | | [phone] | | | +--------+ + + + [...] Interrogation | | | | | [place], | (Primary Dx); | | | | | [place] [address] | Presence of | | | | | [phone] | permanent cardiac | | | | [...] | 2019 | Monitor | | [address] [place] | Interrogation | | | | | [place], | (Primary Dx); | | | | | [place] [address] | Presence of | | | | | [phone] | permanent cardiac | | | | [...] W | | | | | | [place], | | | | | | [place] [address] | | | | | | [phone] | | | | | | | | +--------+ + + + + documented as of this encounter Visit Diagnoses Not on filedocumented in this encounter"
--- OUTSIDE RECORDS SUMMARY | ~2019-11-16 | XMS | Encounter Summary ---
Demographics + + + | Address | [address] | | | [place] [address] | + + + | Home Phone [...] Providers + +------+ + | Care Watch Inspector Final Movement Name | Role | Phone | + [...] + | 08/24/ | Office | [facility] | Silvia, | Ascending thoracic | | 2018 | Visit | CARDIOLOGY [address] | [address] | aortic aneurysm | | | | [place], | [place], | ([facility]) (Primary Dx); | | | | [place] [address] | [place] [address] | Syncope, unspecified | | | | [phone] | [phone] | syncope type; | | | | | | Hypertension, | | | | | | unspecified type; | | | | | | Coronary artery | | | | | | disease involving | | | | | | burns paiute coronary | | | | | | artery of burns paiute | | | | | | heart [...] of non-critical coronary artery d isease involving burns paiute coronary artery of burns paiute heart without angina pectoris, essential h ypertension, [...] Preventative health care Coronary artery disease involving burns paiute coronary artery of burns paiute heart without angina pectoris Cannabis abuse, daily [...] by mouth Daily. 90 tabl et 1 [facility] Natural Products (OSTEO BI-FLEX/5-LOXIN ADVANCED PO) Take [...] 3RD DOSE, CALL 911 100 tablet 3 [place]-3 Fatty Acids (SALMON OIL-1000 PO) CAPS, one capsule by mouth daily twice daily ONE TOUCH DELICA LANCETS [facility] [...] now present Confirmed by HIREN WINKLER, ANGELA ([id number]) on 07/28/2018 6:03:35 AM LAB RESULTS reviewed [...] PLTEX 157 04/11/2018 I reviewed records from [facility] for emergency department visit o n [...] to go back in 3 days to [place] for an attempt of ablation under general [...] He is in class II of the [place] Heart Association f unctional class. There are [...] subsided. 2. Non-critical Coronary artery disease involving burns paiute coronary artery of burns paiute heart [facility] angina pectoris: A. Normal [...] cannot completely be ruled out . D. [facility] 12/25/13, shows non critical coronary artery disease, [...] this chart may have been created with [employer] voice recognition software. Occasi onal wrong-word or [...] 2018 | Monitor | | [address] [place] | Interrogation | | | | | [place], | (Primary Dx); | | | | | [place] [address] | Presence of | | | | | [phone] | permanent cardiac | | | | [...] | Monitor | | MD [address] [place] | Interrogation | | | | | [place], | (Primary Dx); | | | | | [place] [address] | Presence of | | | | | [phone] | permanent cardiac | | | | [...] W | | | | | | [place], | | | | | | [place] [address] | | | | | | [phone] | | | | | | | [...] + + | Coronary artery disease involving burns paiute coronary artery of burns paiute heart without | | angina pectoris | [...]
--- OUTSIDE RECORDS SUMMARY | ~2019-11-16 | XMS | Encounter Summary ---
Demographics + + + | Address | [address] | | | [place] [address] | + + + | Home Phone [...] Providers + +------+ + | Care Truck Dispatcher Name | Role | Phone [...] | | GASTROENTEROLOGY | [address] [place], [place] | | | | | [address] [place] | [address] [place], [place] | | | | | [address] [place], [place] | [address] | | | | | [address] | | | | | | [phone] | | | +--------+ + + + [...] Interrogation | | | | | [place], | (Primary Dx); | | | | | [place] [address] | Presence of | | | | | [phone] | permanent cardiac | | | | [...] Interrogation | | | | | [place], | (Primary Dx); | | | | | [place] [address] | Presence of | | | | | [phone] | permanent cardiac | | | | [...] | | | | | | [place], | | | | | | [place] [address] | | | | | | [phone] | | | | | | | | +--------+ + + + + documented as of this encounter Visit Diagnoses Not on filedocumented in this encounter"
--- OUTSIDE RECORDS SUMMARY | ~2019-11-16 | XMS | Encounter Summary ---
Demographics + + + | Address | [address] | | | [place] [address] | + + + | Home Phone [...] | disease involving | | | | [place], | [place], | skull valley coronary | | | | [place] [address] | [place] [address] | artery of skull valley | | | | [phone] | [phone] | heart without angina | | | [...] Dx); | | | | | [place] [address] | Presence of | | | | | [phone] | permanent cardiac | | | | [...] Dx); | | | | | [place] [address] | Presence of | | | | | [phone] | permanent cardiac | | | | [...] | | | | | [place], | | | | | | [place] [address] | | | | | | [phone] | | | | | | | [...] MD | | | | | | ([id number]) on 06/23/2016 | | | | | [...] + + | Coronary artery disease involving skull valley coronary artery of skull valley heart without | | angina pectoris - Primary | + + | Essential hypertension with goal blood pressure less than 130/80 | + + documented in this encounter"
--- OUTSIDE RECORDS SUMMARY | ~2019-11-16 | XMS | Encounter Summary ---
Demographics + + + | Address | [address] | | | [place] [address] | + + + | Home Phone [...] Team Providers + +------+ + | Care Timber Feller Name | Role | Phone | + +------+ + PCP | Unavailable | + +------+ + Encounter Details +--------+ + + + + | Date | Type | Department | Care Team | Description | +--------+ + + + + | 01/15/ | [facility] | [facility] | Emmanuel Daniel MD | | | 1994 | Encounter | MED CTR GENERIC OP | [address] [place] | | | | | CONV DEPT [address] | [address] [place] | | | | | [place], | [address] | | | | | [place] [address] | | | | | | [phone] | | | +--------+ + + + [...] Interrogation | | | | | [place], | (Primary Dx); | | | | | [place] [address] | Presence of | | | | | [phone] | permanent cardiac | | | | [...] Interrogation | | | | | [place], | (Primary Dx); | | | | | [place] [address] | Presence of | | | | | [phone] | permanent cardiac | | | | [...] | | | | | | [place] [address] | | | | | | [phone] | | | | | | | | +--------+ + + + + documented as of this encounter Visit Diagnoses Not on filedocumented in this encounter"
--- OUTSIDE RECORDS SUMMARY | ~2019-11-16 | XMS | Encounter Summary ---
Demographics + + + | Address | [address] | | | [place] [address] | + + + | Home Phone [...] Providers + +------+ + | Care Dog Catcher Name | Role | Phone | [...] | 06/22/ | Telephone | [facility] [place] [facility] | Vasiliy Michael Kelsey, | Eye Problem | | 2012 | | [facility] [place] | DO [address] | | | | | [address] | [place] | | | | | [place] | [address] | | | | | [address] | | | | | | [phone] | | | +--------+ + + + [...] Dx); | | | | | [place] [address] | Presence of | | | | | [phone] | permanent cardiac | | | | [...] MD [address] [facility] | Interrogation | | | | | [place], | (Primary Dx); | | | | | [place] [address] | Presence of | | | | | [phone] | permanent cardiac | | | | [...] W | | | | | | [facility] [place] | | | | | | [place] [address] | | | | | | [phone] | | | | | | | | +--------+ + + + + documented as of this encounter Visit Diagnoses Not on filedocumented in this encounter"
--- OUTSIDE RECORDS SUMMARY | ~2019-11-16 | XMS | Encounter Summary ---
Demographics + + + | Address | [address] | | | [place] [address] | + + + | Home Phone [...] Providers + +------+ + | Care Pharmacy Account Director Name | Role | Phone [...] + | 10/04/ | Telephone | [facility] | Daljit Singletary, | Other (Records sent) | | 2012 | | CARDIOLOGY [address] | MD [address] [place] | | | | | [place], | [place], | | | | | [place] [address] | [place] [address] | | | | | [phone] | | | | | | | [...] | Monitor | | MD [address] [place] | Interrogation | | | | | [place], | (Primary Dx); | | | | | [place] [address] | Presence of | | | | | [phone] | permanent cardiac | | | | [...] | Monitor | | MD [address] [place] | Interrogation | | | | | [place], | (Primary Dx); | | | | | [place] [address] | Presence of | | | | | [phone] | permanent cardiac | | | | [...] | | | | | | [place] [address] | | | | | | [phone] | | | | | | | | +--------+ + + + + documented as of this encounter Visit Diagnoses Not on filedocumented in this encounter"
--- OUTSIDE RECORDS SUMMARY | ~2019-11-16 | XMS | Encounter Summary ---
Demographics + + + | Address | [address] | | | [place] [address] | + + + | Home Phone [...] Providers + +------+ + | Care Lap Grinder Name | Role | Phone | + +------+ + | Kirk French MD | PCP | | + +------+ + Encounter Details +--------+ + + + + | Date | Type | Department | Care Team | Description | +--------+ + + + + | 08/29/ | Hospital | [facility] | [place]via | DVT (deep venous | | 2015 | Encounter | MED CTR ULTRASOUND | [address] [place] [address] | thrombosis), | | | | [address] [place] | [place], | bilateral (HCC) | | | | [place], [place] | [place] [address] | | | | | [address] | [phone] | | | | | [phone] | | | +--------+ + + + [...] | | | | | | | #[id number], exp 07/2016 | | | | | [...] MD [address] [facility] | Interrogation | | | | | [place], | (Primary Dx); | | | | | [place] [address] | Presence of | | | | | [phone] | permanent cardiac | | | | [...] | [address] [facility] | Interrogation | | | | | [place], | (Primary Dx); | | | | | [place] [address] | Presence of | | | | | [phone] | permanent cardiac | | | | [...] W | | | | | | [place], | | | | | | [place] [address] | | | | | | [phone] | | | | | | | [...] HISTORY: DVT. COMPARISON: None. TECHNIQUE: Compression | [facility] | | sonography was performed from the groin through the popliteal fossa | [facility] | | in both lower [...] conveyed to the ordering provider, by the workers compensation defense attorney, | | | immediately following the exam. [...] to the ordering provider, by the | |workers compensation defense attorney, immediately following the exam. | | | [...] | [address] | [place] | [phone] | | [facility] | | [address] | | | - IMAGING | | | | + + + + + documented in this encounter Visit Diagnoses + + | Diagnosis | + + | DVT (deep venous thrombosis), bilateral | + + documented in this encounter"
--- OUTSIDE RECORDS SUMMARY | ~2019-11-16 | XMS | Encounter Summary ---
Demographics + + + | Address | [address] | | | [place] [address] | + + + | Home Phone [...] Providers + +------+ + | Care Automation Qa Analyst Name | Role | Phone | [...] + + | 06/04/ | Hospital | [facility] | Sariah, | Cervical spinal | | 2016 | Encounter | MED CTR XRAY [address] | [place]etta Mason, REGR[address]ER [address] | stenosis | | | | [place] | [id number] | | | | | [place] [address] | [place] [address] | | | | | [phone] | | | | | | | [...] + + + +---------+ + + | [place]-3 Fatty | CAPS, one capsule by | [...] Dx); | | | | | [place] [address] | Presence of | | | | | [phone] | permanent cardiac | | | | [...] 2018 | Monitor | | MD [address] [place] | Interrogation | | | | | [place], | (Primary Dx); | | | | | [place] [address] | Presence of | | | | | [phone] | permanent cardiac | | | | [...] | | | | | | [place], | | | | | | [place] [address] | | | | | | [phone] | | | | | | | [...] | | | | | thecal, Starting [facility] 06/04/16 at | | | | [...]
--- OUTSIDE RECORDS SUMMARY | ~2019-11-16 | XMS | Encounter Summary ---
Demographics + + + | Address | [address] | | | [place] [address] | + + + | Home Phone [...] + +------+ + | Care Desizing Machine Offbearer Name | Role | Phone [...] | | CARDIOLOGY [address] | Janeen WIRE BOUND BOX MACHINE OPERATOR [address] | | | | | [place], | [place], | | | | | [place] [address] | [place] [address] | | | | | [phone] | [phone] | | | | | | | [...] Interrogation | | | | | [place], | (Primary Dx); | | | | | [place] [address] | Presence of | | | | | [phone] | permanent cardiac | | | | [...] Interrogation | | | | | [place], | (Primary Dx); | | | | | [place] [address] | Presence of | | | | | [phone] | permanent cardiac | | | | [...] W | | | | | | [place], | | | | | | [place] [address] | | | | | | [phone] | | | | | | | | +--------+ + + + + documented as of this encounter Visit Diagnoses Not on filedocumented in this encounter"
--- OUTSIDE RECORDS SUMMARY | ~2019-11-16 | XMS | Encounter Summary ---
Demographics + + + | Address | [address] | | | [place] [address] | + + + | Home Phone [...] Providers + +------+ + | Care Concrete Products Dispatcher Name | Role | Phone | [...] | CARDIOLOGY [address] | MD [address] [place] | | | | | [place], | [place], | | | | | [place] [address] | [place] [address] | | | | | [phone] | [phone] | | | | | | | [...] Dx); | | | | | [place] [address] | Presence of | | | | | [phone] | permanent cardiac | | | | [...] 2018 | Monitor | | [address] [place] | Interrogation | | | | | [place], | (Primary Dx); | | | | | [place] [address] | Presence of | | | | | [phone] | permanent cardiac | | | | [...] | | | | | | [place] [address] | | | | | | [phone] | | | | | | | | +--------+ + + + + documented as of this encounter Visit Diagnoses Not on filedocumented in this encounter"
--- OUTSIDE RECORDS SUMMARY | ~2019-11-16 | XMS | Encounter Summary ---
Demographics + + + | Address | [address] | | | [place] [address] | + + + | Home Phone [...] Providers + +------+ + | Care Production Material Coordinator Name | Role | Phone | + +------+ + PCP | Unavailable | + +------+ + Encounter Details +--------+ + + + + | Date | Type | Department | Care Team | Description | +--------+ + + + + | 02/21/ | [facility] | [facility] | Geri Angel, | | | 2011 | Encounter | MED CTR XRAY [address] | HYPOID GEAR TESTER [address] [place] | | | | | [place] | [address] [place] | | | | | [place] [address] | [address] | | | | | [phone] | | | +--------+ + + + [...] Dx); | | | | | [place] [address] | Presence of | | | | | [phone] | permanent cardiac | | | | [...] Dx); | | | | | [place] [address] | Presence of | | | | | [phone] | permanent cardiac | | | | [...] | | | | | | [place] [address] | | | | | | [phone] | | | | | | | | +--------+ + + + + documented as of this encounter Visit Diagnoses Not on filedocumented in this encounter"
--- OUTSIDE RECORDS SUMMARY | ~2019-11-16 | XMS | Encounter Summary ---
Demographics + + + | Address | [address] | | | [place] [address] | + + + | Home Phone [...] Providers + +------+ + | Care Heavy Equipment Supervisor Name | Role | Phone [...] 2018 | | GASTROENTEROLOGY | [address] [place] [place] | (egd,colon) | | | | [address] [place] | [address] [place], [place] | | | | | [address] [place], [place] | [address] | | | | | [address] | | | | | | [phone] | | | +--------+ + + + [...] | Monitor | | MD [address] [place] | Interrogation | | | | | [place], | (Primary Dx); | | | | | [place] [address] | Presence of | | | | | [phone] | permanent cardiac | | | | [...] | Monitor | | MD [address] [place] | Interrogation | | | | | [place], | (Primary Dx); | | | | | [place] [address] | Presence of | | | | | [phone] | permanent cardiac | | | | [...] | | | | | | [place] [address] | | | | | | [phone] | | | | | | | | +--------+ + + + + documented as of this encounter Visit Diagnoses Not on filedocumented in this encounter"
--- OUTSIDE RECORDS SUMMARY | ~2019-11-16 | XMS | Encounter Summary ---
Demographics + + + | Address | [address] [place] [address] | | | [place] [address] | + + + | Home Phone [...] [place] | | | | | [address] | | + + + + + Care Team Providers + +------+ + | Care Registered Massage Therapist Name | Role | Phone | [...] | | [facility] | | | | [place], [place] | | | | | | [address] | | | | | | [phone] | | | +--------+------+ + + + [...] | [facility] [place] [address] | REGIONAL | | [place] [address] | LABORATORY | + + + + + + + + | Performing | Address | City/State/Zipcode | Phone Number | | Organization | | | | + + + + + | [facility] | [address] | [place] [address] | | | LABORATORY | | | [...] ([address] [facility]) | | | [facility] [address] | | | [place] [address] | | + + + + + + + + | Performing | Address | City/State/Zipcode | Phone Number | | Organization | | | | + + + + + | [facility] | [address] | [place] [address] | | | LABORATORY | | | [...] | | | DEPARTMENT | | | [employer]LANDER | | | OF | | [...] DEPARTMENT OF | [address] | [place] [address] | | | PATHOLOGY | [address] | | | + + + + + documented in this encounter Visit Diagnoses + + | Diagnosis | + + | Chest pain Chest pain, unspecified | + + | Bradycardia Other specified cardiac dysrhythmias | + + documented in this encounter"
--- OUTSIDE RECORDS SUMMARY | ~2019-11-16 | XMS | Encounter Summary ---
Demographics + + + | Address | [address] | | | [place] [address] | + + + | Home Phone [...] + +------+ + | Care School Bus Driver/Mechanic Name | Role | Phone | + [...] + + | 04/24/ | Office | [facility] | Silvia, | Symptomatic PVCs | | 2012 | Visit | CARDIOLOGY [address] | [address] [place] [address] | (Primary Dx); CAD; | | | | [place], | [place], | Hyperlipidemia; | | | | [place] [address] | [place] [address] | PACEMAKER, PERMANENT | | | | [phone] | [phone] | - [employer] | | | | [...] tablet by mouth Daily. 30 tablet 6 [place]-3 Fatty Acids (SALMON OIL-1000 PO) CAPS, one [...] Reviewed records from PCP and notes from [facility]. Assessment: 1. Symptomatic PVCs status post ablation: [...] by Dr. Gambino at [facility] on 01/30/2013. Patient had spontaneous PVCs from [...] to go back in 3 days to [place] for an attempt of ablation under general [...] He is upgraded to class I of [place] 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 There are no [...] made to ensure accuracy; however, inadvertent computerized bowling ball patcher errors may be pre sent. documented in this encounter Plan of Treatment +--------+ + + + + | Date | Type | Specialty | Care Team | Description | +--------+ + + + + | 11/20/ | Implant | Cardiology | Daljit Singletary, | Remote Device | | 2018 | Monitor | | MD [address] [place] | Interrogation | | | | | [place], | (Primary Dx); | | | | | [place] [address] | Presence of | | | | | [phone] | permanent cardiac | | | | [...] | Monitor | | MD [address] [place] | Interrogation | | | | | [place], | (Primary Dx); | | | | | [place] [address] | Presence of | | | | | [phone] | permanent cardiac | | | | [...] | | | | | | [place] [address] | | | | | | [phone] | | | | | | | | +--------+ + + + + documented as of this encounter Visit Diagnoses + + | Diagnosis | + + | Symptomatic PVCs - Primary Other premature beats | + + | CAD Coronary atherosclerosis of unspecified type of vessel, red devil or graft | + + | Hyperlipidemia Other and unspecified hyperlipidemia | + + | PACEMAKER, PERMANENT - [employer] 06/14/09GRANT Cardiac pacemaker in situ | + + documented in this encounter
--- OUTSIDE RECORDS SUMMARY | ~2019-11-16 | XMS | Encounter Summary ---
Demographics + + + | Address | [address] | | | [place] [address] | + + + | Home Phone [...] Providers + +------+ + | Care Residential Fee Appraiser Name | Role | Phone | [...] | 01/05/ | Telephone | [facility] | Emmanuel Daniel MD | Other | | 2019 | | GASTROENTEROLOGY | [address], [place] | | | | | [address] [place] | [address] [place], [place] | | | | | [address] [place], [place] | [address] | | | | | [address] | | | | | | [phone] | | | +--------+ + + + [...] Interrogation | | | | | [place], | (Primary Dx); | | | | | [place] [address] | Presence of | | | | | [phone] | permanent cardiac | | | | [...] 2018 | Monitor | | [address] | Interrogation | | | | | [place], | (Primary Dx); | | | | | [place] [address] | Presence of | | | | | [phone] | permanent cardiac | | | | [...] | | | | | | [place] [address] | | | | | | [phone] | | | | | | | | +--------+ + + + + documented as of this encounter Visit Diagnoses Not on filedocumented in this encounter"
--- OUTSIDE RECORDS SUMMARY | ~2019-11-16 | XMS | Encounter Summary ---
Demographics + + + | Address | [address] | | | [place] [address] | + + + | Home Phone [...] [address] | | | | | [place], | [place], | | | | | [place] [address] | [place] [address] | | | | | [phone] | [phone] | | | | | | | [...] | Monitor | | MD [address] | Interrogation | | | | | [place], | (Primary Dx); | | | | | [place] [address] | Presence of | | | | | [phone] | permanent cardiac | | | | [...] 2018 | Monitor | | MD [facility] | Interrogation | | | | | [place], | (Primary Dx); | | | | | [place] [address] | Presence of | | | | | [phone] | permanent cardiac | | | | [...] W | | | | | | [place], | | | | | | [place] [address] | | | | | | [phone] | | | | | | | [...]
--- OUTSIDE RECORDS SUMMARY | ~2019-11-16 | XMS | Encounter Summary ---
Demographics + + + | Address | [address] | | | [place] [address] | + + + | Home Phone [...] Providers + +------+ + | Care Supplier Development Manager Name | Role | Phone | + +------+ + | Michael Amanda DO | PCP | | + +------+ + Encounter Details +--------+ + + + + | Date | Type | Department | Care Team | Description | +--------+ + + + + | 10/01/ | Hospital | [facility] | Mary Bradshaw | | | 2013 | Encounter | MED CTR JORDEN [facility] | Guy Larkin MD | | | | | [address] [place] | [address] | | | | | [place], [place] | [place], [place] | | | | | [address] | [address] | | | | | [phone] | | | +--------+ + + + [...] + + + +---------+ + + | [place]-3 Fatty | CAPS, one capsule by | [...] Dx); | | | | | [place] [address] | Presence of | | | | | [phone] | permanent cardiac | | | | [...] | 2018 | Monitor | | [address] | Interrogation | | | | | [place], | (Primary Dx); | | | | | [place] [address] | Presence of | | | | | [phone] | permanent cardiac | | | | [...] | | | | | | [place] [address] | | | | | | [phone] | | | | | | | [...] + | MISCELLANEOUS LAB | | | [phone] | + +---------+ + + | MISCELANIOUS LAB | | | [phone] | + +---------+ + + documented in this encounter Visit Diagnoses Not on filedocumented in this encounter"
--- OUTSIDE RECORDS SUMMARY | ~2019-11-16 | XMS | Encounter Summary ---
Demographics + + + | Address | [address] | | | [place] [address] | + + + | Home Phone [...] Team Providers + +------+ + | Care Folding Machine Tender Name | Role | Phone [...] | | CARDIOLOGY [address] | Janeen RESEARCH DIETITIAN [address] | | | | | [place], | [place], | | | | | [place] [address] | [place] [address] | | | | | [phone] | [phone] | | | | | | | [...] Interrogation | | | | | [place], | (Primary Dx); | | | | | [place] [address] | Presence of | | | | | [phone] | permanent cardiac | | | | [...] | | 401 [facility] | Interrogation | | | | | [place], | (Primary Dx); | | | | | [place] [address] | Presence of | | | | | [phone] | permanent cardiac | | | | [...] W | | | | | | [place], | | | | | | [place] [address] | | | | | | [phone] | | | | | | | | +--------+ + + + + documented as of this encounter Visit Diagnoses Not on filedocumented in this encounter"
--- OUTSIDE RECORDS SUMMARY | ~2019-11-16 | XMS | Encounter Summary ---
Demographics + + + | Address | [address] | | | [place] [address] | + + + | Home Phone [...] Team Providers + +------+ + | Care A P Supervisor Name | Role | Phone | [...] + + | 02/21/ | Office | [facility] | Silvia, | Coronary artery | | 2019 | Visit | CARDIOLOGY [address] | PARISA [place] [address] | disease involving | | | | [place], | [place], | [place] coronary | | | | [place] [address] | [place] [address] | artery of [place] | | | | [phone] | [phone] | heart without angina | | | [...] of non-critical coronary artery d isease involving [place] coronary artery of [place] heart without angina pectoris, essential h ypertension, [...] stay active. 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 He has not had any [...] Preventative health care Coronary artery disease involving [place] coronary artery of [place] heart without angina pectoris Cannabis abuse, daily [...] DOSE, CALL 911 100 tablet 3 [place]-3 Fatty Acids (SALMON OIL-1000 PO) CAPS, one capsule by mouth daily twice daily ondansetron (ZOFRAN ODT) 4 mg disintegrating tablet Take 4 mg by mouth. ONE TOUCH DELICA LANC[facility] [...] was found Confirmed by ANGELA MARADIAGA MD ([id number]) on 01/03/2019 8:10:39 PM LAB RESULTS reviewed [...] BNP 15 01/02/2019 I reviewed records from [facility] for angiogram results on 019 which is summarized in the HPI. RESULTS- I reviewed reports from [facility]: No results found. Left heart catheterization done [...] ASSESSMENT: 1. Non-critical Coronary artery disease involving [place] coronary artery of [place] heart [facility] angina pectoris: A.Normal exercise sestamibi [...] Symptoms with moderate exertion of t he [place] Heart Ass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 Heart failure stage [...] performed by Dr Juan Diego Gambino at [facility] on 01/30/2013.Patient had spontaneous PVC's fro [...] [facility]. B. [...] this chart may have been created with [employer] voice recognition software. Occasi onal wrong-word or [...] Interrogation | | | | | [place], | (Primary Dx); | | | | | [place] [address] | Presence of | | | | | [phone] | permanent cardiac | | | | [...] 2018 | Monitor | | [address] [place] | Interrogation | | | | | [place], | (Primary Dx); | | | | | [place] [address] | Presence of | | | | | [phone] | permanent cardiac | | | | [...] | | | | | | [place], | | | | | | [place] [address] | | | | | | [phone] | | | | | | | | +--------+ + + + + documented as of this encounter Visit Diagnoses + + | Diagnosis | + + | Coronary artery disease involving [place] coronary artery of [place] heart without | | angina pectoris - Primary | + + | Symptomatic PVCs Other premature beats | + + | Essential hypertension Unspecified essential hypertension | + + documented in this encounter
--- OUTSIDE RECORDS SUMMARY | ~2019-11-16 | XMS | Encounter Summary ---
Demographics + + + | Address | [address] | | | [place] [address] | + + + | Home Phone [...] Providers + +------+ + | Care Oracle Security Consultant Name | Role | Phone | + +------+ + | Darion Holden DO | PCP | | + +------+ + Encounter Details +--------+ + + + + | Date | Type | Department | Care Team | Description | +--------+ + + + + | 08/05/ | Hospital | [facility] | Emmanuel Daniel MD | | | 2009 | Encounter | MED CTR XRAY [address] | [address] | | | | | [place] | [address] [place], [place] | | | | | [place] [address] | [address] | | | | | [phone] | | | +--------+ + + + [...] | MD [facility] | Interrogation | | | | | [place], | (Primary Dx); | | | | | [place] [address] | Presence of | | | | | [phone] | permanent cardiac | | | | [...] 2018 | Monitor | | MD 401 [facility] | Interrogation | | | | | [place], | (Primary Dx); | | | | | [place] [address] | Presence of | | | | | [phone] | permanent cardiac | | | | [...] W | | | | | | [place], | | | | | | [place] [address] | | | | | | [phone] | | | | | | | | +--------+ + + + + documented as of this encounter Visit Diagnoses Not on filedocumented in this encounter"
--- OUTSIDE RECORDS SUMMARY | ~2019-11-16 | XMS | Encounter Summary ---
Demographics + + + | Address | [address] | | | [place] [address] | + + + | Home Phone [...] Providers + +------+ + | Care Manager Technical Name | Role | Phone | [...] [address] | | | | | | [place], [place] | (Fax) | | | | | [address] | | | | | | [phone] | | | +--------+ + + + [...] 2019 | Monitor | | [address] [place] | Interrogation | | | | | [place], | (Primary Dx); | | | | | [place] [address] | Presence of | | | | | [phone] | permanent cardiac | | | | [...] Interrogation | | | | | [address], | (Primary Dx); | | | | | [place] [address] | Presence of | | | | | [phone] | permanent cardiac | | | | [...] | | | | | | [place], | | | | | | [place] [address] | | | | | | [phone] | | | | | | | | +--------+ + + + + documented as of this encounter Visit Diagnoses Not on filedocumented in this encounter"
--- OUTSIDE RECORDS SUMMARY | ~2019-11-16 | XMS | Encounter Summary ---
Demographics + + + | Address | [address] | | | [place] [address] | + + + | Home Phone [...] Providers + +------+ + | Care Commercial Sales Manager Name | Role | Phone | + +------+ + PCP | Unavailable | + +------+ + Encounter Details +--------+ + + + + | Date | Type | Department | Care Team | Description | +--------+ + + + + | 05/28/ | [facility] | [facility] | Evan Gandara MD | | | 2008 | Encounter | MED CTR LABORATORY | [address] [facility] | | | | | [address] [place] [address] | [place] | | | | | [place] | [address] | | | | | [address] | | | | | | [phone] | | | +--------+ + + + [...] Interrogation | | | | | [place], | (Primary Dx); | | | | | [place] [address] | Presence of | | | | | [phone] | permanent cardiac | | | | [...] | MD Sim [facility] | Interrogation | | | | | [place], | (Primary Dx); | | | | | [place] [address] | Presence of | | | | | [phone] | permanent cardiac | | | | [...] | | | | | | [place], | | | | | | [place] [address] | | | | | | [phone] | | | | | | | | +--------+ + + + + documented as of this encounter Visit Diagnoses Not on filedocumented in this encounter"
--- OUTSIDE RECORDS SUMMARY | ~2019-11-16 | XMS | Encounter Summary ---
Demographics + + + | Address | [address] | | | [place] [address] | + + + | Home Phone [...] Team Providers + +------+ + | Care Flanging Roll Operator Name | Role | Phone [...] Show | | 2012 | | MEDICINE [place] | DO [address] | | | | | [address] | [place] | | | | | [place] | [address] | | | | | [address] | | | | | | [phone] | | | +--------+ + + + [...] Interrogation | | | | | [place], | (Primary Dx); | | | | | [place] [address] | Presence of | | | | | [phone] | permanent cardiac | | | | [...] Interrogation | | | | | [place], | (Primary Dx); | | | | | [place] [address] | Presence of | | | | | [phone] | permanent cardiac | | | | [...] | | | | | | [place], | | | | | | [place] [address] | | | | | | [phone] | | | | | | | | +--------+ + + + + documented as of this encounter Visit Diagnoses Not on filedocumented in this encounter"
--- OUTSIDE RECORDS SUMMARY | ~2019-11-16 | XMS | Encounter Summary ---
Demographics + + + | Address | [address] | | | [place] [address] | + + + | Home Phone [...] Providers + +------+ + | Care Dry Press Operator Name | Role | Phone | + +------+ + PCP | Unavailable | + +------+ + Encounter Details +--------+ + + + + | Date | Type | Department | Care Team | Description | +--------+ + + + + | 02/21/ | [facility] | [facility] | Cristy Braun | | | 2008 | Encounter | MED CTR EMERGENCY | Ronald Adrian MD [address] | | | | | [place] [address] | [facility] | | | | | [place] | [place] [address] | | | | | [address] | [phone] | | | | | [phone] | | | +--------+ + + + [...] Dx); | | | | | [place] [address] | Presence of | | | | | [phone] | permanent cardiac | | | | [...] Dx); | | | | | [place] [address] | Presence of | | | | | [phone] | permanent cardiac | | | | [...] W | | | | | | [place], | | | | | | [place] [address] | | | | | | [phone] | | | | | | | | +--------+ + + + + documented as of this encounter Visit Diagnoses Not on filedocumented in this encounter"
--- OUTSIDE RECORDS SUMMARY | ~2019-11-16 | XMS | Encounter Summary ---
Demographics + + + | Address | [address] | | | [place] [address] | + + + | Home Phone [...] Providers + +------+ + | Care Oyster Fisherman Name | Role | Phone | + [...] + + | 10/25/ | Telephone | [facility] | [place], | Other (patient has | | 2013 | | CARDIOLOGY [address] | Janeen OPHTHALMIC MEDICAL ASSISTANT [address] | changed his mind) | | | | [place], | [place], | | | | | [place] [address] | [place] [address] | | | | | [phone] | [phone] | | | | | | | [...] | Monitor | | MD [address] [place] | Interrogation | | | | | [place], | (Primary Dx); | | | | | [place] [address] | Presence of | | | | | [phone] | permanent cardiac | | | | [...] 2018 | Monitor | | [address] [place] | Interrogation | | | | | [place], | (Primary Dx); | | | | | [place] [address] | Presence of | | | | | [phone] | permanent cardiac | | | | [...] | | | | | | [place] [address] | | | | | | [phone] | | | | | | | | +--------+ + + + + documented as of this encounter Visit Diagnoses Not on filedocumented in this encounter"
--- OUTSIDE RECORDS SUMMARY | ~2019-11-16 | XMS | Encounter Summary ---
Demographics + + + | Address | [address] | | | [place] [address] | + + + | Home Phone [...] Providers + +------+ + | Care Medical Pathology Teacher Name | Role | Phone [...] 2012 | | CARDIOLOGY [address] | RESTAURANT SHIFT LEADER [address] | | | | | [place], | [place], [place] | | | | | [place] [address] | [address] | | | | | [phone] | | | +--------+ + + + [...] Interrogation | | | | | [place], | (Primary Dx); | | | | | [place] [address] | Presence of | | | | | [phone] | permanent cardiac | | | | [...] Interrogation | | | | | [place], | (Primary Dx); | | | | | [place] [address] | Presence of | | | | | [phone] | permanent cardiac | | | | [...] | | | | | | [place] [address] | | | | | | [phone] | | | | | | | | +--------+ + + + + documented as of this encounter Visit Diagnoses Not on filedocumented in this encounter"
--- OUTSIDE RECORDS SUMMARY | ~2019-11-16 | XMS | Encounter Summary ---
Demographics + + + | Address | [address] | | | [place] [address] | + + + | Home Phone [...] Team Providers + +------+ + | Care Nozzle Operator Name | Role | Phone [...] | (Fax) | | | | | [address] | | | | | | [phone] | | | +--------+ + + + [...] 2019 | Monitor | | [address] | Interrogation | | | | | [place], | (Primary Dx); | | | | | [place] [address] | Presence of | | | | | [phone] | permanent cardiac | | | | [...] Interrogation | | | | | [place], | (Primary Dx); | | | | | [place] [address] | Presence of | | | | | [phone] | permanent cardiac | | | | [...] W | | | | | | [place], | | | | | | [place] [address] | | | | | | [phone] | | | | | | | | +--------+ + + + + documented as of this encounter Visit Diagnoses Not on filedocumented in this encounter"
--- OUTSIDE RECORDS SUMMARY | ~2019-11-16 | XMS | Encounter Summary ---
Demographics + + + | Address | [address] | | | [place] [address] | + + + | Home Phone [...] + +------+ + | Care Industrial Waste Treatment Technician Name | Role | Phone | [...] + + | 05/26/ | Emergency | [facility] | Lizbeth Green | Atypical chest pain | | 2013 | | MED CTR EMERGENCY | DO Nicole Fink | (Primary Dx); | | | | CENTER [address] | [place], [place] | Anxiety | | | | [place], [place] | [address] | | | | | [address] | | | | | | [phone] | | | +--------+ + + + [...] documented in this encounter Discharge Instructions Lizbeth Nguễyn MD - 05/26/2014Home and rest Continue current [...] + + +---------+ + + | [place]-3 Fatty | CAPS, one capsule by | [...] Dx); | | | | | [place] [address] | Presence of | | | | | [phone] | permanent cardiac | | | | [...] Dx); | | | | | [place] [address] | Presence of | | | | | [phone] | permanent cardiac | | | | [...] W | | | | | | [place], | | | | | | [place] [address] | | | | | | [phone] | | | | | | | [...] the uneventful IV administration of 80 mL [id number] contrast. Timing of | | contrast bolus [...] + | MISCELLANEOUS LAB | | | [phone] | + +---------+ + + | MISCELANIOUS LAB | | | [phone] | + +---------+ + + Troponin I [...] | | | | | | [employer] | | | | | [...] [address] | [place] | [phone] | | [facility] | | [address] | | | - LABORATORY | | | | + + + + + | [facility] | [address] | [place] | | | [facility] | | [address] | | | - LABORATORY | | [...] | mL/min/1.73m2 | MICHELLE | | | SAUDI ARABIAN | RATE,ESTIMATED | | MEDICAL | | | | mL/min/1.77l5Ftaz than | | CENTER - | | [...] [address] | [place] | [phone] | | [facility] | | [address] | | | - LABORATORY | | | | + + + + + | [facility] | [address] | [place] | | | [facility] | | [address] | | | - LABORATORY | | [...] + | [facility] | [address] | [place], [place] | [phone] | | [facility] | | [address] | | | - LABORATORY | | | | + + + + + | [facility] [facility] | [address] | [place], [place] | | | [facility] | | [address] | | | - LABORATORY | | [...]
--- OUTSIDE RECORDS SUMMARY | ~2019-11-16 | XMS | Encounter Summary ---
Demographics + + + | Address | [address] | | | [place] [address] | + + + | Home Phone [...] Providers + +------+ + | Care Fish Cleaner Machine Tender Name | Role | Phone | + +------+ + | Kirk French MD | PCP | | + +------+ + Encounter Details +--------+ + + + + | Date | Type | Department | Care Team | Description | +--------+ + + + + | 06/03/ | Hospital | [facility] | Conversion | Back pain, | | 2014 | Encounter | CONVERSION DEP [address] | Transaction, | unspecified location | | | | [address] | Provider Unknown | | | | | [place], [place] | [phone] | | | | | [address] | (Fax) | | | | | [phone] | | | +--------+ + + + [...] + + +---------+ + + | [place]-3 Fatty | CAPS, one capsule by | [...] | | | | | | | #[id number], exp 07/2016 | | | | | [...] Dx); | | | | | [place] [address] | Presence of | | | | | [phone] | permanent cardiac | | | | [...] | 2018 | Monitor | | [address] | Interrogation | | | | | [place], | (Primary Dx); | | | | | [place] [address] | Presence of | | | | | [phone] | permanent cardiac | | | | [...] W | | | | | | [place], | | | | | | [place] [address] | | | | | | [phone] | | | | | | | [...]
--- OUTSIDE RECORDS SUMMARY | ~2019-11-16 | XMS | Encounter Summary ---
Demographics + + + | Address | [address] | | | [place] [address] | + + + | Home Phone [...] Providers + +------+ + | Care Air Drill Operator Name | Role | Phone | + +------+ + PCP | Unavailable | + +------+ + Encounter Details +--------+ + + + + | Date | Type | Department | Care Team | Description | +--------+ + + + + | 11/05/ | [facility] | [facility] | Naresh Mckeon | | | 2009 | Encounter | MED CTR SLEEP | MD Chaya [address] | | | | | CENTER [address] | [place] | | | | | [place] | [place] [address] | | | | | [address] | [phone] | | | | | [phone] | | | +--------+ + + + [...] Dx); | | | | | [place] [address] | Presence of | | | | | [phone] | permanent cardiac | | | | [...] | MD Sim [facility] | Interrogation | | | | | [place], | (Primary Dx); | | | | | [place] [address] | Presence of | | | | | [phone] | permanent cardiac | | | | [...] | | | | | | [place], | | | | | | [place] [address] | | | | | | [phone] | | | | | | | | +--------+ + + + + documented as of this encounter Visit Diagnoses Not on filedocumented in this encounter"
--- OUTSIDE RECORDS SUMMARY | ~2019-11-16 | XMS | Encounter Summary ---
Demographics + + + | Address | [address] | | | [place] [address] | + + + | Home Phone [...] Providers + +------+ + | Care Timber Grader Name | Role | Phone | [...] + + | 08/30/ | Refill | [facility] | Kirk French | Medication Refill | | 2019 | | [facility] | MD [address] | | | | | [facility]IMARY [facility] [address] | [address] | | | | | [address] | [place] [address] | | | | | [place], [place] | [phone] | | | | | [address] | | | | | | [phone] | | | +--------+--------+ + + + [...] 2019 | Monitor | | [place] [address] [facility] | Interrogation | | | | | [place], | (Primary Dx); | | | | | [place] [address] | Presence of | | | | | [phone] | permanent cardiac | | | | [...] Interrogation | | | | | [place], | (Primary Dx); | | | | | [place] [address] | Presence of | | | | | [phone] | permanent cardiac | | | | [...] | | | | | | [place] [address] | | | | | | [phone] | | | | | | | | +--------+ + + + + documented as of this encounter Visit Diagnoses Not on filedocumented in this encounter"
--- OUTSIDE RECORDS SUMMARY | ~2019-11-16 | XMS | Encounter Summary ---
Demographics + + + | Address | [address] | | | [place] [address] | + + + | Home Phone [...] Team Providers + +------+ + | Care Youtuber Name | Role | Phone | + [...] loss | [address] | [address] [place], | | | | | Anxiety | [address] | [address] | | | | | disorder, | [address] | [place], | | | | | unspecified | [place], [place] | [place] [address] | | | | | Chronic | [address] | Phone: | | | | | pain | Phone: | [phone] | | | | | syndrome | [phone] | Fax: | | | | | Procedures | Fax: | [phone] | | | | | office visit | [phone] | | +--------+--------+ + + + + Encounter Details +--------+---------+ + + + | Date | Type | Department | Care Team | Description | +--------+---------+ + + + | 12/26/ | Office | [facility] | Emmanuel Daniel MD | Functional diarrhea | | 2019 | Visit | GASTROENTEROLOGY | [address] [place] | (Primary Dx); | | | | [address] | [address] [place], [place] | Gastrointestinal | | | | [address] [place], [place] | [address] | hemorrhage | | | | [address] | | associated with | | | | [phone] | | anorectal source; | | | [...] Dx); | | | | | [place] [address] | Presence of | | | | | [phone] | permanent cardiac | | | | [...] 2018 | Monitor | | MD [address] [place] | Interrogation | | | | | [address] [place], | (Primary Dx); | | | | | [place] [address] | Presence of | | | | | [phone] | permanent cardiac | | | | [...] W | | | | | | [place], | | | | | | [place] [address] | | | | | | [phone] | | | | | | | [...]
--- OUTSIDE RECORDS SUMMARY | ~2019-11-16 | XMS | Encounter Summary ---
Demographics + + + | Address | [address] | | | [place] [address] | + + + | Home Phone [...] Providers + +------+ + | Care Full Roll Inspector Name | Role | Phone | [...] + | 06/24/ | Telephone | [facility] | Daljit Singletary, | Lab Order | | 2017 | | CARDIOLOGY [address] | MD [address] | | | | | [place], | [place], | | | | | [place] [address] | [place] [address] | | | | | [phone] | | | | | | | [...] Dx); | | | | | [place] [address] | Presence of | | | | | [phone] | permanent cardiac | | | | [...] 2018 | Monitor | | [address] | Interrogation | | | | | [place], | (Primary Dx); | | | | | [place] [address] | Presence of | | | | | [phone] | permanent cardiac | | | | [...] | | | | | | [place], | | | | | | [place] [address] | | | | | | [phone] | | | | | | | [...] 06/24/2018, Expires: | | | | | [place] coronary | 06/24/2019 | | | | | artery of [place] | | | | | | heart without angina | | | | | | pectoris | | | | | | Hyperlipidemia, | | | | | | mixed | | + +------+--------+ + + documented as of this encounter Visit Diagnoses + + | Diagnosis | + + | Coronary artery disease involving [place] coronary artery of [place] heart without | | angina pectoris - Primary | + + | Hyperlipidemia, mixed Mixed hyperlipidemia | + + documented in this encounter"
--- OUTSIDE RECORDS SUMMARY | ~2019-11-16 | XMS | Encounter Summary ---
Demographics + + + | Address | [address] | | | [place] [address] | + + + | Home Phone [...] Providers + +------+ + | Care Protection Analyst Name | Role | Phone | [...] | | | | Sinoatrial | Geri, GARDEN MACHINERY MECHANIC | [address] | | | | | node | [address] | [place], | | | | | dysfunction | [place] | [place] | | | | | (HCC) | [place], [place] | [address] | | | | | Coronary | [address] | Phone: | | | | | artery | Phone: | [phone] | | | | | disease | [phone] | Fax: | | | | | involving | Fax: | [phone] | | | | | washoe | [phone] | | | | | | coronary | | | | | | | artery of | | | | | | | [place] heart | | | | | | [...] | | | | | | Complete [place] | | | | | | | ECHO HEART | | | | | | | XTHORAC[place] | | | | | | | MPLETE W | | | | | | | [place]OPPLER [place] | | | | | | [...] | | | | Sinoatrial | Geri, GARDEN MACHINERY MECHANIC | [address] | | | | | node | [address] | [place], | | | | | dysfunction | [place] | [place] | | | | | ([facility]) | [place], [place] | [address] | | | | | Coronary | [address] | Phone: | | | | | artery | Phone: | [phone] | | | | | disease | [phone] | Fax: | | | | | involving | Fax: | [phone] | | | | | washoe | [phone] | | | | | | coronary | | | | | | | artery of | | | | | | | [place] heart | | | | | | [...] | | | | | | Complete [place] | | | | | | | ECHO HEART | | | | | | | XTHORACIC,[place] | | | | | | | MPLETE [place] | | | | | | | [place] | | | | | | [...] 06/16/ | [facility] | [facility] | Geri Angel, | Sinoatrial node | | 2016 | Encounter | MED CTR ECHO [address] | GARDEN MACHINERY MECHANIC [address] | dysfunction (HCC) | | | | [place] | [place], [place] | with symptomatic | | | | [place] [address] | [address] | bradycardia; | | | | [phone] | | Coronary artery | | | | | Juvenal Blake, | disease involving | | | | | Technologist | [place]hoe coronary | | | | | | artery of [place] | | | | | | heart [...] + + + +---------+ + + | Alb[place]-3 Fatty | CAPS, one capsule by | [...] Monitor | | MD [address] | Interrogation | | | | | [facility], | (Primary Dx); | | | | | [place] [address] | Presence of | | | | | [phone] | permanent cardiac | | | | [...] Monitor | | MD [address] | Interrogation | | | | | [facility] [place], | (Primary Dx); | | | | | [place] [address] | Presence of | | | | | [phone] | permanent cardiac | | | | [...] | 2020 | Visit | | Janeen, GARDEN MACHINERY MECHANIC [address] | | | | | | [place], | | | | | | [place] [address] | | | | | | [phone] | | | | | | | [...] involving | | | | | | [place] coronary | | | | | | artery of [place] | | | | | | heart [...] (TTE) Demographics Patient Name VICTOR HUGO BANNER | | [place] Room Number SARAH Patient | [facility] | | [id number] Date of Study 06/16/2016 Number | - IMAGING | | Visit Number [id number] | | | Referring Physician JOSE ARMANDO GARCIA Number Date of 1960 | | | Alarm Signal Operator LUIS FERNANDO DUARTE Age | | | 56 year(s) Interpreting | | | GURJIT TROY | | | General Office Worker SYDNI SINGLETARY, | | | Gender | | | Male Nurse Procedure Type of Study TTE | | | procedure: ECHO Complete. Procedure dateDate: 06/16/2016Start: 10:55 | | | AM Technical Quality: Adequate visualizationStudy Location: Echo | | | LabIndications: CAD [place] CORONARY ARTERY 414.01/ I25.10 and | | [...] BARRY Room Number SARAH | | Patient [id number] Date of Study 06/16/2016 Number Visit Number | | [id number] Referring Physician JOSE ARMANDO GARCIA Number | | Date of 1960 Alarm Signal Operator LUIS FERNANDO DUARTE Age | | 56 year(s) Interpreting GURJIT TROY | | General Office Worker SYDNI SINGLETARY, | | Gender Male NurseProcedureType of Study TTE | | procedure: ECHO Complete.Procedure dateDate: 06/16/2016Start: 10:55 AMTechnical Quality: | | Adequate visualizationStudy Location: Echo LabIndications: CAD [place] CORONARY ARTERY | | 414.01/ I25.10 and [...] [address] | [place] | [phone] | | [facility] | | [address] | | | - IMAGING | | [...] + + | Coronary artery disease involving [place]hoe coronary artery of [place]hoe heart without | | angina pectoris | + + | Ascending thoracic aortic aneurysm (HCC) Thoracic aneurysm without mention of rupture | + + documented in this encounter"
--- OUTSIDE RECORDS SUMMARY | ~2019-11-16 | XMS | Encounter Summary ---
Demographics + + + | Address | [address] | | | [place] [address] | + + + | Home Phone [...] 2012 | | CARDIOLOGY [address] | [employer] [address] | to be referred | | | | [place], | [place], [place] | soon) | | | | [place] [address] | [address] | | | | | [phone] | | | +--------+ + + + [...] Dx); | | | | | [place] [address] | Presence of | | | | | [phone] | permanent cardiac | | | | [...] Dx); | | | | | [place] [address] | Presence of | | | | | [phone] | permanent cardiac | | | | [...] | | | | | | [place] [address] | | | | | | [phone] | | | | | | | | +--------+ + + + + documented as of this encounter Visit Diagnoses Not on filedocumented in this encounter"
--- OUTSIDE RECORDS SUMMARY | ~2019-11-16 | XMS | Encounter Summary ---
Demographics + + + | Address | [address] | | | [place] [address] | + + + | Home Phone [...] Team Providers + +------+ + | Care Leaflet Or Newspaper Deliverer Name | Role | Phone | [...] + + | 05/15/ | Office | [facility] | Matthew Uriarte | Kidney stones | | 2019 | Visit | [address] | MD Tawanna [address] | (Primary Dx) | | | | [place], [place] | [place], [place] | | | | | [address] | [address] | | | | | [phone] | | | +--------+---------+ + + + [...] [employer] Peptic ulcer disease Premature ventricular contraction [facility] health care 06/26/2013 LAST PSA:12/16/2010 [...] [facility] MEDICAL PROCEDURE UNIT URETEROSCOPY Left 04/13/2019 Procedure: Cystoscopy, Left ureteroscopy with laser lithotripsy, Left ureteral stent place ment; Surgeon: Matthew Uriarte MD; Location: [facility] MAIN OR VASECTOMY Family History: [...] 911, Disp: 100 ta blet, Rfl: 3 [place]-3 Fatty Acids (SALMON OIL-1000 PO), CAPS, one [...] pH, Urine 8.0 5.0 - 8.0 Specific Harris 1.008 1.001 - 1.030 Protein, Urine Negative [...] have not thoroughly proofread this note, and link wire fabric machine tender errors are very likely to [...] Interrogation | | | | | [place], | (Primary Dx); | | | | | [place] [address] | Presence of | | | | | [phone] | permanent cardiac | | | | [...] Interrogation | | | | | [place], | (Primary Dx); | | | | | [place] [address] | Presence of | | | | | [phone] | permanent cardiac | | | | [...] W | | | | | | [place], | | | | | | [place] [address] | | | | | | [phone] | | | | | | | [...]
--- OUTSIDE RECORDS SUMMARY | ~2019-11-16 | XMS | Encounter Summary ---
Demographics + + + | Address | [address] | | | [place] [address] | + + + | Home Phone [...] Providers + +------+ + | Care Rn Patient Services Name | Role | Phone | [...] 2019 | | GASTROENTEROLOGY | [address], [place] | | | | | [address] [place] | [address] [place], [place] | | | | | [address] [place], [place] | [address] | | | | | [address] | | | | | | [phone] | | | +--------+ + + + [...] | | | | | [place], | (Primary Dx); | | | | | [place] [address] | Presence of | | | | | [phone] | permanent cardiac | | | | [...] | | | | | [place], | (Primary Dx); | | | | | [place] [address] | Presence of | | | | | [phone] | permanent cardiac | | | | [...] W | | | | | | [place], | | | | | | [place] [address] | | | | | | [phone] | | | | | | | | +--------+ + + + + documented as of this encounter Visit Diagnoses Not on filedocumented in this encounter"
--- OUTSIDE RECORDS SUMMARY | ~2019-11-16 | XMS | Encounter Summary ---
Demographics + + + | Address | [address] | | | [place] [address] | + + + | Home Phone [...] Providers + +------+ + | Care Mica Plate Layer Name | Role | Phone | [...] | on | GASTROENTEROLOGY | [address], [place] | | | | | [address] [place] | [address] [place], [place] | | | | | 210 [place], [place] | [address] | | | | | [address] | | | | | | [phone] | | | +--------+ + + + [...] Dx); | | | | | [place] [address] | Presence of | | | | | [phone] | permanent cardiac | | | | [...] 2018 | Monitor | | [address] | Interrogation | | | | | [place], | (Primary Dx); | | | | | [place] [address] | Presence of | | | | | [phone] | permanent cardiac | | | | [...] | | | | | | [place] [address] | | | | | | [phone] | | | | | | | | +--------+ + + + + documented as of this encounter Visit Diagnoses Not on filedocumented in this encounter"
--- OUTSIDE RECORDS SUMMARY | ~2019-11-16 | XMS | Encounter Summary ---
Demographics + + + | Address | [address] | | | [place] [address] | + + + | Home Phone [...] Providers + +------+ + | Care Communication Coordinator Name | Role | Phone | [...] | 09/30/ | Telephone | [facility] | Daljit Singletary, | Other (Danieljoao | | 2018 | | [place] [address] | [address] | remote) | | | | [place], | [place], | | | | | [place] [address] | [place] [address] | | | | | [phone] | [phone] | | | | | | | [...] 2018 | Monitor | | [address] | Interrogation | | | | | [place], | (Primary Dx); | | | | | [place] [address] | Presence of | | | | | [phone] | permanent cardiac | | | | [...] | Monitor | | MD [address] | Interrogation | | | | | [place], | (Primary Dx); | | | | | [place] [address] | Presence of | | | | | [phone] | permanent cardiac | | | | [...] | | | | | | [place] [address] | | | | | | [phone] | | | | | | | | +--------+ + + + + documented as of this encounter Visit Diagnoses Not on filedocumented in this encounter"
--- OUTSIDE RECORDS SUMMARY | ~2019-11-16 | XMS | Encounter Summary ---
Demographics + + + | Address | [address] | | | [place] [address] | + + + | Home Phone [...] Providers + +------+ + | Care Campus Administrative Assistant Name | Role | Phone [...] Eva ROUSE | | | | | [place], [place] | [address] | | | | | [address] | [place] [address] | | | | | [phone] | [phone] | | | | | | | [...] | Monitor | | MD [address] | Interrogation | | | | | [place], | (Primary Dx); | | | | | [place] [address] | Presence of | | | | | [phone] | permanent cardiac | | | | [...] Interrogation | | | | | [place], | (Primary Dx); | | | | | [place] [address] | Presence of | | | | | [phone] | permanent cardiac | | | | [...] | | | | | | [place] [address] | | | | | | [phone] | | | | | | | [...] | | | Basophils | performed at [facility];[address] | 10*3/uL | LAB | | | | [address] | | | | | | [address];[place] [address] | | | | + + + [...] | | | | | Samira;[place] [address] | | | | + + + [...] | | | | | | at [facility];[address] [facility] | | | | | | [facility];[place], [place] | | | | | | [address] | | | | + + + [...]
--- OUTSIDE RECORDS SUMMARY | ~2019-11-16 | XMS | Encounter Summary ---
Demographics + + + | Address | [address] | | | [place] [address] | + + + | Home Phone [...] Providers + +------+ + | Care Extrusion Machine Operator Name | Role | Phone [...] 2019 | | GASTROENTEROLOGY | [address], [place] | | | | | [address] [place] | 210 [place], [place] | | | | | 210 [place], [place] | [address] | | | | | [address] | | | | | | [phone] | | | +--------+ + + + [...] Dx); | | | | | [place] [address] | Presence of | | | | | [phone] | permanent cardiac | | | | [...] Dx); | | | | | [place] [address] | Presence of | | | | | [phone] | permanent cardiac | | | | [...] | | | | | | [place], | | | | | | [place] [address] | | | | | | [phone] | | | | | | | | +--------+ + + + + documented as of this encounter Visit Diagnoses Not on filedocumented in this encounter"
--- OUTSIDE RECORDS SUMMARY | ~2019-11-16 | XMS | Encounter Summary ---
Demographics + + + | Address | [address] | | | [place] [address] | + + + | Home Phone [...] Providers + +------+ + | Care Wastewater Analyst Lab Analyst Name | Role | Phone | + +------+ + | Michael Amanda DO | PCP | | + +------+ + Encounter Details +--------+ + + + + | Date | Type | Department | Care Team | Description | +--------+ + + + + | 05/11/ | Hospital | [facility] | Conversion | Lumbago; | | 2013 | Encounter | [facility]ENTER XRAY | Transaction, | Postlaminectomy | | | | [address] | Provider Unknown | syndrome, cervical | | | | [place], [place] | | region; Cervicalgia | | | | [address] | (Fax) | | | | | [phone] | | | +--------+ + + + [...] + + +---------+ + + | [place]-3 Fatty | CAPS, one capsule [...] 1147 Date of Service: 05/11/141145 Status: Signed Boat Worker: Christine Mcgraw Report called to Brittany [...] | Monitor | | MD [address] | Interrogation | | | | | [place], | (Primary Dx); | | | | | [place] [address] | Presence of | | | | | [phone] | permanent cardiac | | | | [...] Dx); | | | | | [place] [address] | Presence of | | | | | [phone] | permanent cardiac | | | | [...] | | | | | | [place], | | | | | | [place] [address] | | | | | | [phone] | | | | | | | [...]
--- OUTSIDE RECORDS SUMMARY | ~2019-11-16 | XMS | Encounter Summary ---
Demographics + + + | Address | [address] | | | [place] [address] | + + + | Home Phone [...] Providers + +------+ + | Care Aviation Neuropsychologist Name | Role | Phone | + [...] + + | 02/15/ | [facility] | [facility] | Jay Cohn PA | DIDIER (obstructive | | 2012 | Visit | SLEEP DISORDER [address] | [address] | sleep apnea) | | | | [address] [place] | [place] | (Primary Dx) | | | | [place] [address] | [address] | | | | | [phone] | | | +--------+---------+ + + + [...] AM PDTGo to [facility] including: Nasal pillows [...] pillows obtained from: [facility] [place] pressure is: 13 cm CPAP download shows [...] to go to [facility] [place] to replace his equipment, but it had [...] to go to [facility] [place] to g et a new mask and filter. He is to work toward wearing his CPAP 100% of the time he is asle ep. I will follow up again in 1 month, sooner prn. Fifteen minutes were spent [id number], wi th the majority of time spent [...] 2018 | Monitor | | [address] | Interrogation | | | | | [place], | (Primary Dx); | | | | | [place] [address] | Presence of | | | | | [phone] | permanent cardiac | | | | [...] 2018 | Monitor | | [address] | Interrogation | | | | | [place], | (Primary Dx); | | | | | [place] [address] | Presence of | | | | | [phone] | permanent cardiac | | | | [...] | | | | | | [place], | | | | | | [place] [address] | | | | | | [phone] | | | | | | | | +--------+ + + + + documented as of this encounter Visit Diagnoses + + | Diagnosis | + + | DIDIER (obstructive sleep apnea) - Primary Obstructive sleep apnea (adult) (pediatric) | + + documented in this encounter"
--- OUTSIDE RECORDS SUMMARY | ~2019-11-16 | XMS | Encounter Summary ---
Demographics + + + | Address | [address] | | | [place] [address] | + + + | Home Phone [...] | | CARDIOLOGY [address] | [address] | | | | | [place], | [place], | | | | | [place] [address] | [place] [address] | | | | | [phone] | [phone] | | | | | | | [...] | Monitor | | MD [address] | Interrogation | | | | | [place], | (Primary Dx); | | | | | [place] [address] | Presence of | | | | | [phone] | permanent cardiac | | | | [...] Dx); | | | | | [place] [address] | Presence of | | | | | [phone] | permanent cardiac | | | | [...] W | | | | | | [place], | | | | | | [place] [address] | | | | | | [phone] | | | | | | | [...] [address] | [place] | [phone] | | [facility] | | [address] | | | - LABORATORY | | | | + + + + + | [address] | [address] | [place] | | | [facility] | | [address] | | | - LABORATORY | | [...] | Count | | 10*3/uL | [facility] [place] | | | | [...] YESSY [place]OB[place] | | | | | [facility] | | | | | - LABORATORY | | | | + +---------+ + + documented in this encounter Visit Diagnoses Not on filedocumented in this encounter"
--- OUTSIDE RECORDS SUMMARY | ~2019-11-16 | XMS | Encounter Summary ---
Demographics + + + | Address | [address] | | | [place] [address] | + + + | Home Phone [...] Providers + +------+ + | Care Diesel Locomotive Firer Name | Role | Phone | [...] | RN | | | | | [place], | | | | | | [place] [address] | | | | | | [phone] | | | +--------+ + + + [...] | 2019 | Monitor | | [address] | Interrogation | | | | | [place], | (Primary Dx); | | | | | [place] [address] | Presence of | | | | | [phone] | permanent cardiac | | | | [...] | 2019 | Monitor | | [address] | Interrogation | | | | | [place], | (Primary Dx); | | | | | [place] [address] | Presence of | | | | | [phone] | permanent cardiac | | | | [...] W | | | | | | [place], | | | | | | [place] [address] | | | | | | [phone] | | | | | | | | +--------+ + + + + documented as of this encounter Visit Diagnoses Not on filedocumented in this encounter"
--- OUTSIDE RECORDS SUMMARY | ~2019-11-16 | XMS | Encounter Summary ---
Demographics + + + | Address | [address] | | | [place] [address] | + + + | Home Phone [...] Team Providers + +------+ + | Care Fisheries Officer Name | Role | Phone | [...] [address] | | | | | [place], | [place], | | | | | [place] [address] | [place] [address] | | | | | [phone] | | | | | | | [...] | Monitor | | MD [address] [place] | Interrogation | | | | | [place], | (Primary Dx); | | | | | [place] [address] | Presence of | | | | | [phone] | permanent cardiac | | | | [...] Dx); | | | | | [place] [address] | Presence of | | | | | [phone] | permanent cardiac | | | | [...] W | | | | | | [place], | | | | | | [place] [address] | | | | | | [phone] | | | | | | | [...] Resulting Agency Comment | + + | [facility] | + + + +---------+ [...] Resulting Agency Comment | + + | [facility] | + + + +---------+ [...] Resulting Agency Comment | + + | [facility] | + + + +---------+ + + [...] Resulting Agency Comment | + + | [facility] | + + + +---------+ [...] Resulting Agency Comment | + + | [facility] | + + + +---------+ + + [...] Resulting Agency Comment | + + | [facility] | + + + +---------+ + [...] Resulting Agency Comment | + + | [facility] | + + + +---------+ [...] Agency Comment | + + | [facility] | + + + +---------+ + [...] Resulting Agency Comment | + + | [facility] | + + + +---------+ + [...] Resulting Agency Comment | + + | [facility] | + + + +---------+ [...] Resulting Agency Comment | + + | [facility] | + + + +---------+ + + [...] Resulting Agency Comment | + + | [facility] | + + + +---------+ + [...] Resulting Agency Comment | + + | [facility] | + + + +---------+ [...] Resulting Agency Comment | + + | [facility] | + + + +---------+ [...] Comment | + + | [facility] | + + + +---------+ + [...] Agency Comment | + + | [facility] | + + + +---------+ + + | Performing | Address | City/State/Zipcode | Phone Number | | Organization | | | | + +---------+ + + | EXTERNAL LAB | | | | + +---------+ + + External Lab: [facility] (11/05/2016 10:20 AM PST) + +-------+ + [...] Resulting Agency Comment | + + | [facility] | + + + +---------+ + [...] Resulting Agency Comment | + + | [facility] | + + + +---------+ + [...] Resulting Agency Comment | + + | [facility] | + + + +---------+ [...]
--- OUTSIDE RECORDS SUMMARY | ~2019-11-16 | XMS | Encounter Summary ---
Demographics + + + | Address | [address] | | | [place] [address] | + + + | Home Phone [...] + +------+ + | Care Drive In Theater Attendant Name | Role | Phone | + +------+ + PCP | Unavailable | + +------+ + Encounter Details +--------+ + + + + | Date | Type | Department | Care Team | Description | +--------+ + + + + | 03/08/ | [facility] | [facility] | Emmanuel Daniel MD | | | 2006 | Encounter | MED CTR GENERIC OP | [address] | | | | | CONV DEPT [address] | [address] [place] | | | | | [place], | [address] | | | | | [place] [address] | | | | | | [phone] | | | +--------+ + + + [...] Interrogation | | | | | [place], | (Primary Dx); | | | | | [place] [address] | Presence of | | | | | [phone] | permanent cardiac | | | | [...] 2018 | Monitor | | MD [facility] | Interrogation | | | | | [place], | (Primary Dx); | | | | | [place] [address] | Presence of | | | | | [phone] | permanent cardiac | | | | [...] | | | | | | [place] [address] | | | | | | [phone] | | | | | | | | +--------+ + + + + documented as of this encounter Visit Diagnoses Not on filedocumented in this encounter"
--- OUTSIDE RECORDS SUMMARY | ~2019-11-16 | XMS | Encounter Summary ---
Demographics + + + | Address | [address] | | | [place] [address] | + + + | Home Phone [...] + +------+ + | Care Electrician Helper [employer] Name | Role | Phone | [...] + | 09/09/ | Office | [facility] | Michael Amanda, | Hyperlipidemia; | | 2011 | Visit | MEDICINE YULAN | DO [address] | Hypertension; | | | | [address] | [place] | Chronic pain | | | | [place] | [address] | syndrome; Neck pain, | | | | [address] | | chronic | | | | [phone] | | | +--------+---------+ + + + [...] damage history No ASHD (either angina; prior [place]; prior CABG) No cardiac end organ damage [...] slowly cutting back. [facility] prior to [...] 2019 | Monitor | | [address] | Interrogation | | | | | [facility], | (Primary Dx); | | | | | [place] [address] | Presence of | | | | | [phone] | permanent cardiac | | | | [...] Dx); | | | | | [place] [address] | Presence of | | | | | [phone] | permanent cardiac | | | | [...] W | | | | | | [place], | | | | | | [place] [address] | | | | | | [phone] | | | | | | | [...]
--- OUTSIDE RECORDS SUMMARY | ~2019-11-16 | XMS | Encounter Summary ---
Demographics + + + | Address | [address] | | | [place] [address] | + + + | Home Phone [...] Team Providers + +------+ + | Care Terrapin Fisher Name | Role | Phone | [...] 2019 | | GASTROENTEROLOGY | [address], [place] | | | | | [address] [place] | [address] [place], [place] | | | | | [address] [place], [place] | [address] | | | | | [address] | | | | | | [phone] | | | +--------+ + + + [...] | Monitor | | MD [address] | Interrogation | | | | | [facility] [place], | (Primary Dx); | | | | | [place] [address] | Presence of | | | | | [phone] | permanent cardiac | | | | [...] | Monitor | | MD [address] | Interrogation | | | | | [place], | (Primary Dx); | | | | | [place] [address] | Presence of | | | | | [phone] | permanent cardiac | | | | [...] | | | | | | [place] [address] | | | | | | [phone] | | | | | | | | +--------+ + + + + documented as of this encounter Visit Diagnoses Not on filedocumented in this encounter"
--- OUTSIDE RECORDS SUMMARY | ~2019-11-16 | XMS | Encounter Summary ---
Demographics + + + | Address | [address] | | | [place] [address] | + + + | Home Phone [...] Providers + +------+ + | Care Field Hauler Name | Role | Phone | [...] [address] | | | | | [place], | [place], | | | | | [place] [address] | [place] [address] | | | | | [phone] | [phone] | | | | | | | [...] | Monitor | | MD [address] [place] | Interrogation | | | | | [place], | (Primary Dx); | | | | | [place] [address] | Presence of | | | | | [phone] | permanent cardiac | | | | [...] 2018 | Monitor | | MD [address] [facility] | Interrogation | | | | | [place], | (Primary Dx); | | | | | [place] [address] | Presence of | | | | | [phone] | permanent cardiac | | | | [...] W | | | | | | [place], | | | | | | [place] [address] | | | | | | [phone] | | | | | | | | +--------+ + + + + documented as of this encounter Visit Diagnoses Not on filedocumented in this encounter"
--- OUTSIDE RECORDS SUMMARY | ~2019-11-16 | XMS | Encounter Summary ---
Demographics + + + | Address | [address] | | | [place] [address] | + + + | Home Phone [...] Providers + +------+ + | Care Spool Tender Name | Role | Phone | [...] + + | 08/04/ | Telephone | [facility] | Silvia, | Other (4 week event | | 2017 | | CARDIOLOGY [address] | [place]ISA [place] [address] | monitor ) | | | | [place], | [place], | | | | | [place] [address] | [place] [address] | | | | | [phone] | | | | | | | [...] | Monitor | | MD [address] [place] | Interrogation | | | | | [place], | (Primary Dx); | | | | | [place] [address] | Presence of | | | | | [phone] | permanent cardiac | | | | [...] | Monitor | | MD [address] [place] | Interrogation | | | | | [place], | (Primary Dx); | | | | | [place] [address] | Presence of | | | | | [phone] | permanent cardiac | | | | [...] | | | | | | [place] [address] | | | | | | [phone] | | | | | | | | +--------+ + + + + documented as of this encounter Visit Diagnoses Not on filedocumented in this encounter"
--- OUTSIDE RECORDS SUMMARY | ~2019-11-16 | XMS | Encounter Summary ---
Demographics + + + | Address | [address] | | | [place] [address] | + + + | Home Phone [...] Team Providers + +------+ + | Care Dater Assembler Name | Role | Phone | [...] | type | [address] | [address] | | | | | Procedures | [place] | [place], | | | | | FUP | [place], [place] | [place] [address] | | | | | | [address] | Phone: | | | | | | Phone: | [phone] | | | | | | [phone] | Fax: | | | | | | Fax: | [phone] | | | | | | [phone] | | +--------+ + + + + [...] | | | | CENTER [address] [place] | [address] [place] | (Primary Dx) | | | | [place], [place] | [place] [address] | | | | | [address] | [phone] | | | | | [phone] | | | +--------+ + + + [...] cannot be sent through Care Everywhere.Angina, Stable (Armenian)documented in this encounter Medications at Time [...] + + + +---------+ + + | Loop-3 Fatty | CAPS, one capsule by | [...] Dx); | | | | | [place] [address] | Presence of | | | | | [phone] | permanent cardiac | | | | [...] Interrogation | | | | | [facility], | (Primary Dx); | | | | | [place] [address] | Presence of | | | | | [phone] | permanent cardiac | | | | [...] | | | | | | [place], | | | | | | [place] [address] | | | | | | [phone] | | | | | | | [...] | | | | ANGELA MARADIAGA MD ([id number]) | | | | | | on [...] [address] | [place] | [phone] | | [facility] | | [address] | | | - LABORATORY | | [...] ST. | [address] | [place] | [phone] | | [facility] | | [address] | | | - LABORATORY | | [...] [address] | [place] | [phone] | | [facility] | | [address] | | | - LABORATORY | | [...] | mL/min/1.73m2 | MICHELLE | | | NIGERIAN | RATE,ESTIMATED | | MEDICAL | | | | mL/min/1.64m3Ssnz than | | CENTER - | | [...] | [facility] | [address] | [place] | [phone] | | [facility] | | [address] | | | - LABORATORY | | [...] [address] | [place] | [phone] | | [facility] | | [address] | | | - LABORATORY | | [...] | | | | ANGELA MARADIAGA MD ([id number]) | | | | | | on [...]
--- OUTSIDE RECORDS SUMMARY | ~2019-11-16 | XMS | Encounter Summary ---
Demographics + + + | Address | [address] | | | [place] [address] | + + + | Home Phone [...] Providers + +------+ + | Care Manager Document Control Name | Role | Phone | [...] [address] | | | | | [address] | [place] | | | | | [phone] | [address] | | | | | | [phone] | | | | | | | [...] Notes by Kylah Fraser CMA at 04/11/18 1424 Author: Kylah Fraser CMA Service: (none) Author Type: Malted Milk Supervisor Filed: 04/19/18 1118 Encounter Date: 04/11/2018 Status: Signed Freight Car Cleaner: Kylah Fraser CMA (Malted Milk Supervisor) See telephone encounter 04/19/18. Karen pfeiffer in this encounter Plan of Treatment +--------+ + + + + | Date | Type | Specialty | Care Team | Description | +--------+ + + + + | 11/20/ | Implant | Cardiology | Daljit Singletary, | Remote Device | | 2018 | Monitor | | MD [address] [place] | Interrogation | | | | | [place], | (Primary Dx); | | | | | [place] [address] | Presence of | | | | | [phone] | permanent cardiac | | | | [...] | Monitor | | MD [address] | Interrogation | | | | | [place], | (Primary Dx); | | | | | [place] [address] | Presence of | | | | | [phone] | permanent cardiac | | | | [...] W | | | | | | [place], | | | | | | [place] [address] | | | | | | [phone] | | | | | | | [...]
--- OUTSIDE RECORDS SUMMARY | ~2019-11-16 | XMS | Encounter Summary ---
Demographics + + + | Address | [address] | | | [place] [address] | + + + | Home Phone [...] Providers + +------+ + | Care General Adjuster Name | Role | Phone | + +------+ + | Kirk French MD | PCP | | + +------+ + Encounter Details +--------+ + + + + | Date | Type | Department | Care Team | Description | +--------+ + + + + | 12/23/ | Emergency | [facility] | Cristal Alexander, | Chronic neck pain; | | 2015 | | MEDICAL CENTER | DO [address] | Headache(784.0) | | | | EMERGENCY CENTER | [place] [address] | | | | | [address] | [phone] | | | | | [place], [place] | | | | | | [address] | | | | | | [phone] | | | +--------+ + + + [...] + + + +---------+ + + | [place]-3 Fatty | CAPS, one capsule by | [...] | | | | | | | #[id number], exp 07/2016 | | | | | [...] Dx); | | | | | [place] [address] | Presence of | | | | | [phone] | permanent cardiac | | | | [...] 2018 | Monitor | | [address] | Interrogation | | | | | [place], | (Primary Dx); | | | | | [place] [address] | Presence of | | | | | [phone] | permanent cardiac | | | | [...] | | | | | [place], | | | | | | [place] [address] | | | | | | [phone] | | | | | | | [...] 07/07/2019 5:05 AM PDT PINA Hermosillo VICTOR [id number] years MaleCT | | CERVICAL SPINE WO [...]
--- OUTSIDE RECORDS SUMMARY | ~2019-11-16 | XMS | Encounter Summary ---
Demographics + + + | Address | [address] | | | [place] [address] | + + + | Home Phone [...] Providers + +------+ + | Care Power Transmission Engineer Name | Role | Phone | [...] 2016 | | CARDIOLOGY [address] | BASS STRING WINDER [address] | | | | | [place], | [place], [place] | | | | | [place] [address] | [address] | | | | | [phone] | | | +--------+--------+ + + + [...] Interrogation | | | | | [facility], | (Primary Dx); | | | | | [place] [address] | Presence of | | | | | [phone] | permanent cardiac | | | | [...] Interrogation | | | | | [facility], | (Primary Dx); | | | | | [place] [address] | Presence of | | | | | [phone] | permanent cardiac | | | | [...] | | | | | | [place] [address] | | | | | | [phone] | | | | | | | | +--------+ + + + + documented as of this encounter Visit Diagnoses Not on filedocumented in this encounter"
--- OUTSIDE RECORDS SUMMARY | ~2019-11-16 | XMS | Encounter Summary ---
Demographics + + + | Address | [address] | | | [place] [address] | + + + | Home Phone [...] + +------+ + | Care Contract Clerk Automobile Name | Role | Phone | + [...] | | | | CENTER [address] | [address] | (Primary Dx) | | | | [place], [place] | [place], [place] | | | | | [address] | [address] | | | | | [phone] | | | +--------+ + + + [...] Dx); | | | | | [place] [address] | Presence of | | | | | [phone] | permanent cardiac | | | | [...] Dx); | | | | | [place] [address] | Presence of | | | | | [phone] | permanent cardiac | | | | [...] W | | | | | | [place], | | | | | | [place] [address] | | | | | | [phone] | | | | | | | [...] W?MRN: | | | | | | [id number] | | | [id number] | | | his | | | [...] | | | ent/60 | | | [id number] | | | -5586- | | | [...] | | | St. | | | [place] | | | y | | | [...] | | | ext. | | | [address] | | | or go | | [...] | | | M.D. | | | Social Worker Palliative Care | | | al | | | [...] | | | | | | [employer] | | | | | [...] + + | YESSY HOBBS | [address] | [place] | [phone] | | [facility] | | [address] | | | - LABORATORY | | [...] | | | Anticoagulation Range: | | STJuan Diego MARTINEZ | | | | 2.0 - [...] [address] | [place] | [phone] | | [facility] | | [address] | | | - [...] + | [facility] | [address] | [place] | [phone] | | [facility] | | [address] | | | - LABORATORY | | [...] | mL/min/1.73m2 | [place] | | | INDIAN | RATE,ESTIMATED | | MEDICAL | | | | mL/min/1.66h7Rwho than | | CENTER - | | [...] [address] | [place] | [phone] | | [facility] | | [address] | | | - LABORATORY | | [...] | | Neutrophils | | K/uL | [facility] | | | | | | MEDICAL | | | | | | CENTER - | | | | | | LABORATORY | | + +-------+ + + + | Absolute | 2.10 | 0.60 - 3.20 | [facility] | | | Lymphocytes | | K/uL | [facility] | | | | | | MEDICAL | | | | | | CENTER - | | | | | | LABORATORY | | + +-------+ + + + | Absolute | 0.60 | 0.00 - 1.00 | [facility] | | | Monocytes | | K/uL | [facility] | | | | | | MEDICAL | | | | | | CENTER - | | | | | | LABORATORY | | + +-------+ + + + | Absolute | 0.10 | 0.00 - 0.40 | [facility] | | | Eosinophils | | K/uL | [facility] | | | | | [...] [address] | [place] | [phone] | | [facility] | | [address] | | | - LABORATORY | | [...] ST. | [address] | [place], [place] | [phone] | | [facility] | | [address] | | | - LABORATORY | | [...] MD | | | | | | ([id number]) on 06/22/2018 | | | | | [...]
--- OUTSIDE RECORDS SUMMARY | ~2019-11-16 | XMS | Encounter Summary ---
Demographics + + + | Address | [address] | | | [place] [address] | + + + | Home Phone [...] Team Providers + +------+ + | Care Formula Mixer Name | Role | Phone | [...] + | 06/26/ | Office | [facility] | Montgomery[place], | Diplopia (Primary | | 2012 | Visit | [facility] | [address] | Dx); Symptomatic | | | | [address] | [place], [place] | PVCs; Hypertension | | | | [place], [place] | [address] | | | | | [address] | | | | | | [phone] | | | +--------+---------+ + + + [...] Double vision will affect your ability to food clerk distance. This means it will be harder [...] or, difficulty with vision, speech or walking [address] [place] [address]. All rights reserve d. This information is [...] from his pain clinic visit in the [facility] on Wednesday or he developed double [...] double vision. He was evaluated by Dr Doddridge and had a normal eye exam, nor [...] tablet by mouth Daily. 30 tablet 6 [place]-3 Fatty Acids (SALMON OIL-1000 PO) CAPS, one [...] Interrogation | | | | | St[place], | (Primary Dx); | | | | | [place] [address] | Presence of | | | | | [phone] | permanent cardiac | | | | [...] | 2019 | Monitor | | [address] | Interrogation | | | | | [place], | (Primary Dx); | | | | | [place] [address] | Presence of | | | | | [phone] | permanent cardiac | | | | [...] | | | | | | [place], | | | | | | [place] [address] | | | | | | [phone] | | | | | | | [...] + | [facility] | [address] | [place] | [phone] | | [facility] | | [address] | | | - LABORATORY | | | | + + + + + | [facility] | [address] | [place] | | | [facility] | | [address] | | | - LABORATORY | | [...] + | [facility] | [address] | [place], [place] | [phone] | | [facility] | | [address] | | | - LABORATORY | | | | + + + + + | [facility] | [address] | [place], [place] | | | [facility] | | [address] | | | - LABORATORY | | [...] | [facility]. [facility] | | | | [facility] | | MEDICAL | | | [...] + | [facility] | [address] | [place] | [phone] | | [facility] | | [address] | | | - LABORATORY | | | | + + + + + | [facility] | [address] | [place] | | | [facility] | | [address] | | | - LABORATORY | | | | + + + + + documented in this encounter Visit Diagnoses + + | Diagnosis | + + | Diplopia - Primary | + + | Symptomatic PVCs Other premature beats | + + | Hypertension Unspecified essential hypertension | + + documented in this encounter
--- OUTSIDE RECORDS SUMMARY | ~2019-11-16 | XMS | Encounter Summary ---
Demographics + + + | Address | [address] | | | [place] [address] | + + + | Home Phone [...] Providers + +------+ + | Care Frame Fixer Name | Role | Phone | + +------+ + | Kirk French MD | PCP | | + +------+ + Encounter Details +--------+---------+ + + + | Date | Type | Department | Care Team | Description | +--------+---------+ + + + | 01/25/ | Surgery | [facility] | Daljit Singletary, | CV LHC | | 2019 | | MED CTR CV INTRA OP | MD [address] | | | | | [address] | [address] [place], | | | | | [place] | [place] [address] | | | | | [address] | [phone] | | | | | [phone] | | | +--------+---------+ + + + [...] by your healthcare provider Date Last Reviewed: 09/22/[id number] [employer] [address] [place] [address]. All righ ts reserved. This information is [...] | Monitor | | MD [address] | Interrogation | | | | | [place], | (Primary Dx); | | | | | [place] [address] | Presence of | | | | | [phone] | permanent cardiac | | | | [...] | Monitor | | MD [address] | Interrogation | | | | | [place], | (Primary Dx); | | | | | [place] [address] | Presence of | | | | | [phone] | permanent cardiac | | | | [...] | | | | | [place], | | | | | | [place] [address] | | | | | | [phone] | | | | | | | [...] (1960) MEDICAL RECORD NUMBER: | | | [id number] OF PROCEDURE: 01/25/2019 WAREHOUSE SUPERVISOR 3RD SHIFT: Daljit | | | MD Gemini PROCEDURES [...] and CORONARY ANGIOGRAPHYPATIENT | | NAME/: Moe aSnchez, (1960) | | OF PROCEDURE: 01/25/2019PRIMARY SUPERVISOR GREEN END DEPARTMENT: Daljit Singletary MD PROCEDURES | | PERFORMED:Coronary [...] or lesion | | type, unspecified whether [place] or transplanted heart | + + documented [...]
--- OUTSIDE RECORDS SUMMARY | ~2019-11-16 | XMS | Encounter Summary ---
Demographics + + + | Address | [address] | | | [place] [address] | + + + | Home Phone [...] Providers + +------+ + | Care Radio Repairman Name | Role | Phone | + +------+ + | Kirk French MD | PCP | | + +------+ + Encounter Details +--------+ + + + + | Date | Type | Department | Care Team | Description | +--------+ + + + + | 12/24/ | [facility] | Emmanuel Daniel MD | Pain of upper | | 2018 | Encounter | MED CTR MP INTRA OP | [address], [place] | abdomen (Primary | | | | [address] | [address] [place], [place] | Dx); Functional | | | | [place], [place] | [address] | diarrhea; Weight | | | | [address] | | loss | | | | [phone] | | | +--------+ + + + [...] + + + +---------+ + + | Shelbiana-3 Fatty | CAPS, one capsule by | [...] Dx); | | | | | [place] [address] | Presence of | | | | | [phone] | permanent cardiac | | | | [...] Interrogation | | | | | [facility] [place], | (Primary Dx); | | | | | [place] [address] | Presence of | | | | | [phone] | permanent cardiac | | | | [...] | | | | | | [place] [address] | | | | | | [phone] | | | | | | | [...] + | Performed at: 01 - [facility] [address] [address], | REFERENCE LAB | | [place], [place] [id number] Audio/Visual Manager: William Andrew MD, Phone: | [facility] | | [phone] | | + + + + + + + + | Performing | Address | City/State/Zipcode | Phone Number | | Organization | | | | + + + + + | REFERENCE LAB | [address] | [place] [address] | [phone] | | [facility] | Drive [...] ST. | [address] | [place], [place] | [phone] | | [facility] | | [address] | | | - LABORATORY | | [...] [address] | [place] | [phone] | | [facility] | | [address] | | | - LABORATORY | | [...] [address] | [place] | [phone] | | [facility] | | [address] | | | - LABORATORY | | [...] + | Performed at: 01 - [facility] [address] [address], | REFERENCE LAB | | [place], [place] [id number] Audio/Visual Manager: William Andrew MD, Phone: | [facility] KINA | | [phone] | | + + + + + + + + | Performing | Address | City/State/Zipcode | Phone Number | | Organization | | | | + + + + + | REFERENCE LAB | [address] | [place] [address] | [phone] | | [facility] | Drive [...] ST. | [address] | [place] | [phone] | | [facility] | | [address] | | | - LABORATORY | | [...] [address] | [place] | [phone] | | [facility] | | [address] | | | - LABORATORY | | [...] + | [facility] | [address] | [place] | [phone] | | [facility] | | [address] | | | - LABORATORY | | [...] + | [facility] | [address] | [place] | [phone] | | [facility] | | [address] | | | - LABORATORY | | [...] [address] | [place] | [phone] | | [facility] | | [address] | | | - LABORATORY | | | | + + + + + EGD (12/24/2017 1:19 PM PST) + + | Specimen | + + | | + + + + -+ | Narrative | Performed At | + + -+ | | [facility] | | GastroenterologyPatient Name: Moe SanchezProcedure Date: 12/24/2017 | [facility]OVATION | | 1:19 PMMRN: [id number] #: [id number] of : | | | 9Admit Type: AmbulatoryAge: 57Room: [facility] 01Gender: MaleNote | | | Status: FinalizedAttending MD: Emmanuel Daniel , [facility]ENTERrocedure: | | | Upper GI endoscopyIndications: Diarrhea, Weight | | | lossProviders: Emmanuel Daniel MD, Maria Isabel Morris RN, | | | Kim Hicks, Learning Support Services Director, [place] | | | Sapna Barakat MD (Anesthesia [...] the anesthesiologist and | | | the behavioral technician in the endoscopy suite. Mental Status [...] PMScope Out: 1:31:13 PM | | | [facility], [address] [facility] | | | [place] [address] | | | - Discharge patient to [...] |Scope Out: 1:31:13 PM | | | [facility], [address], [place] | | | [address] | | + + -+ + +---------+ [...] | [facility] | | GastroenterologyPatient Name: [facility] Date: 12/24/2017 | [facility]ATION | | 1:17 PMMRN: [id number] #: [id number] of : | | | 9Admit Type: AmbulatoryAge: 57Room: [facility] 01Gender: MaleNote | | | Status: FinalizedAttending MD: Emmanuel Daniel , MDProcedure: | | | ColonoscopyIndications: Clinically significant diarrhea of | | | unexplained originProviders: Emmanuel Daniel MD, Joanne | | | Arturo, [place], Kim Hicks, Learning Support Services Director, | | | Jarett Barakat MD [...] | | | the anesthesiologist and the behavioral technician in the endoscopy suite. | | [...] In: 1:32:55 PMScope Out: 1:48:57 PM [facility] | | | [facility], [address] [place] [address] | | | [phone] | | | - Await pathology results. [...] |Scope Out: 1:48:57 PM | | | [facility], [address], [place] | | | [address] | | + + -+ + +---------+ [...] | colonic mucosa with focal adenomatous change. CLR:ssm rehab:C2NR | | | GROSS DESCRIPTION: Received in four parts. A. Received in | | | formalin labeled "Freddie Nelson" and labeled "duodenal bx" on | | | the requisition are six pink-lin tissue fragments measuring from | | | 0.3-0.8 cm submitted, all in (A1). B. Received in formalin labeled | | | "Moe Altus, C." and labeled "B, left colon bx" on the | | | requisition are five pink-iln tissue fragments measuring from 0.2-09.9 | | | cm, submitted, all in (B1). C. Received in formalin labeled | | | "Moe Altus, D." and labeled "C, bx TI" on the requisition are | | | six matias-pink and lin colored tissue fragments measuring from 0.5 cm, | | | submitted, all in (C1). D. Received in formalin labeled "Moe | | | Altus, E. ASC" and labeled "D. ascending colon bx" on the | | | requisition are nine pink-lin tissue fragments measuring from 0.15-0.5 | | | cm, submitted, all in (D1). ka:CLR:ssm rehab ADDITIONAL NOTES: | | | Immunohistochemical studies were performed on this case with the | | | appropriate positive controls that react as expected. This test was | | | developed and its performance characteristics determined by [facility] | | | [employer]. It has not been cleared or approved by the U.S. Food | | | and Drug Administration. The FDA has determined that such clearance | | | or approval is not necessary. This test is used for clinical | | | purposes. It should not be regarded as investigational or for | | | research. [facility] is certified under the Clinical | | | Laboratory Improvement Amendments of 1988 (CLIA) as qualified to | | | perform high complexity clinical laboratory testing. This assay | | | has not been validated for specimens that have been decalcified. | | | PERFORMING LABORATORY: Tissue processing and slide preparation were | | | performed by [facility], [address], [facility] | | | [place] [address] (Consultant Internship: Evan Frausto M.D. CLIA#: | | | [id number]). Professional interpretation was performed by [facility] | | | [employer], [address], [place] [address] | | | (Consultant Internship: Evan Frausto M.D.; CLIA#: [id number]). | | | Diagnostician: Rafael Bales MD [...]
--- OUTSIDE RECORDS SUMMARY | ~2019-11-16 | XMS | Encounter Summary ---
Demographics + + + | Address | [address] | | | [place] [address] | + + + | Home Phone [...] Providers + +------+ + | Care Manager Maintenance Name | Role | Phone | + +------+ + | Michael Amanda DO | PCP | | + +------+ + Reason for Visit + + + | Reason | Comments | + + + | Follow-up | One month with [facility] 12/25/13 | + + + | Chest Pain | | + + + Encounter Details +--------+---------+ + + + | Date | Type | Department | Care Team | Description | +--------+---------+ + + + | 01/29/ | Office | [facility] | [place], | Other chest pain | | 2013 | Visit | CARDIOLOGY [address] | [place] [address] | (Primary Dx); Chest | | | | [place], | [place], | pain; Coronary | | | | [place] [address] | [place] [address] | artery disease; | | | | [phone] | [phone] | Hyperlipidemia; | | | | | [...] room at [facility] with a baljit st pain episode. Patient [...] needed for Chest pain. 25 tablet 12 [place]-3 Fatty Acids (SALMON OIL-1000 PO) CAPS, one [...] was seen on the emergency room at [facility] on 01/26/2014, he was ruled out A [...] pain. He is in class II of [place] Heart Ass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 There are no [...] arrhythmia performed by Dr. Gambino at [facility] on 01/30/2013. Patient had spontaneous PVCs [...] to go back in 3 days to [place] for an attempt of ablation under general [...] symptoms. He is in class II of [place] Heart Ass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 There are no [...] made to ensure accuracy; however, inadvertent computerized dental specialist errors may be pre sent. Electronically [...] Dx); | | | | | [place] [address] | Presence of | | | | | [phone] | permanent cardiac | | | | [...] 2018 | Monitor | | [address] | Interrogation | | | | | [place], | (Primary Dx); | | | | | [place] [address] | Presence of | | | | | [phone] | permanent cardiac | | | | [...] W | | | | | | [place], | | | | | | [place] [address] | | | | | | [phone] | | | | | | | [...] of unspecified type of vessel, | | [place] or graft | + + | Hyperlipidemia Other and unspecified hyperlipidemia | + + | Symptomatic PVCs Other premature beats | + + | Hypertension Unspecified essential hypertension | + + documented in this encounter
--- OUTSIDE RECORDS SUMMARY | ~2019-11-16 | XMS | Encounter Summary ---
Demographics + + + | Address | [address] | | | [place] [address] | + + + | Home Phone [...] Team Providers + +------+ + | Care Airworthiness Safety Inspector Name | Role | Phone | [...] + + | 06/26/ | Office | [facility] | [place], | Diplopia (Primary | | 2012 | Visit | [facility] | [address] | Dx); Symptomatic | | | | [address] | [place], [place] | PVCs; Hypertension | | | | [place], [place] | [address] | | | | | [address] | | | | | | [phone] | | | +--------+---------+ + + + [...] Double vision will affect your ability to interventional radiology rn distance. This means it will be harder [...] or, difficulty with vision, speech or walking [address] [place] [address]. All rights reserve d. This information is [...] double vision. He was evaluated by Dr Boise and had a normal eye exam, nor [...] tablet by mouth Daily. 30 tablet 6 [place]-3 Fatty Acids (SALMON OIL-1000 PO) CAPS, [...] Interrogation | | | | | [facility] [place], | (Primary Dx); | | | | | [place] [address] | Presence of | | | | | [phone] | permanent cardiac | | | | [...] | 2019 | Monitor | | [address] | Interrogation | | | | | [place], | (Primary Dx); | | | | | [place] [address] | Presence of | | | | | [phone] | permanent cardiac | | | | [...] W | | | | | | [place], | | | | | | [place] [address] | | | | | | [phone] | | | | | | | [...] + | [facility] | [address] | [place] | [phone] | | [facility] | | [address] | | | - LABORATORY | | | | + + + + + | [facility] | [address] | [place] | | | [facility] | | [address] | | | - LABORATORY | | [...] + | [facility] | [address] | [place], [place] | [phone] | | [facility] | | [address] | | | - LABORATORY | | | | + + + + + | [facility] | [address] | [place], [place] | | | [facility] | | [address] | | | - LABORATORY | | [...] | [facility] | | | | [facility] | | MEDICAL | | | [...] + | [facility] | [address] | [place] | [phone] | | [facility] | | [address] | | | - LABORATORY | | | | + + + + + | [facility] | [address] | [place] | | | [facility] | | [address] | | | - LABORATORY | | | | + + + + + documented in this encounter Visit Diagnoses + + | Diagnosis | + + | Diplopia - Primary | + + | Symptomatic PVCs Other premature beats | + + | Hypertension Unspecified essential hypertension | + + documented in this encounter
--- OUTSIDE RECORDS SUMMARY | ~2019-11-16 | XMS | Encounter Summary ---
Demographics + + + | Address | [address] | | | [place] [address] | + + + | Home Phone [...] Providers + +------+ + | Care Machine Setter And Repairer Name | Role | Phone [...] | | | | of feces, | [place], [place] | [address] | | | | | unspecified | [address] [place] | [place], [place] | | | | | fecal | [place], [place] | [address] | | | | | incontinence | [address] | Phone: | | | | | type | Phone: | [phone] | | | | | Diarrhea, | [phone] | Fax: | | | | | unspecified | Fax: | [phone] | | | | | type | [phone] | | +--------+ + + + + [...] 2018 | | GASTROENTEROLOGY | [address] [place], [place] | | | | | [address] [place] | [address] [place], [place] | | | | | [address] [place], [place] | [address] | | | | | [address] | | | | | | [phone] | | | +--------+ + + + [...] Dx); | | | | | [place] [address] | Presence of | | | | | [phone] | permanent cardiac | | | | [...] | Monitor | | MD [address] [place] | Interrogation | | | | | [place], | (Primary Dx); | | | | | [place] [address] | Presence of | | | | | [phone] | permanent cardiac | | | | [...] W | | | | | | [place], | | | | | | [place] [address] | | | | | | [phone] | | | | | | | [...]
--- OUTSIDE RECORDS SUMMARY | ~2019-11-16 | XMS | Encounter Summary ---
Demographics + + + | Address | [address] | | | [place] [address] | + + + | Home Phone [...] Team Providers + +------+ + | Care Collet Gluer Name | Role | Phone | + [...] + + | 12/29/ | Office | [facility] | [place], | Ascending thoracic | | 2017 | Visit | CARDIOLOGY [address] | [address] | aortic aneurysm | | | | [place], | [place], | (HCC) (Primary Dx); | | | | [place] [address] | [place] [address] | Coronary artery | | | | [phone] | [phone] | disease involving | | | | | | [place] coronary | | | | | | artery of [place] | | | | | | heart [...] of non-critical coronary artery d isease involving [place] coronary artery of [place] heart without angina pectoris, essential h ypertension, [...] start Losartan 25 mg once every day, [facility] blood pressure log, and follow up in 3 months. Since that time, he went to the ER in [facility] with chest pain at the end [...] Preventative health care Coronary artery disease involving [place] coronary artery of [place] heart without angina pectoris Cannabis abuse, daily [...] 3RD DOSE, CALL 911 100 tablet 3 [place]-3 Fatty Acids (SALMON OIL-1000 PO) CAPS, one [...] was found Confirmed by SYDNI SINGLETARY MD ([id number]) on 06/23/2016 2:08:15 PM LAB RESULTS reviewed [...] PLTEX 129* 05/12/2016 I reviewed records from [facility] for office visit on 09/01/2016 [...] He is in class I of the [place] Heart Ass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 On physical examination there are no signs of fl uid overload. 2. Non-critical Coronary artery disease involving [place] coronary a rtery of [place] heart without angina pectoris: A. Normal exercise [...] arrhythmia performed by Dr. Gambino at [facility] on 01/30/2013. Patient had spontaneous PVCs [...] is a normal stable device function. Estimated Schedule C Systemsi ng battery longevity is 5 years.. 5. [...] this chart may have been created with Known voice recognition software. Occasi onal wrong-word or [...] Interrogation | | | | | [place], | (Primary Dx); | | | | | [place] [address] | Presence of | | | | | [phone] | permanent cardiac | | | | [...] Interrogation | | | | | [place], | (Primary Dx); | | | | | [place] [address] | Presence of | | | | | [phone] | permanent cardiac | | | | [...] | | | | | | [place], | | | | | | [place] [address] | | | | | | [phone] | | | | | | | | +--------+ + + + + documented as of this encounter Visit Diagnoses + + | Diagnosis | + + | Ascending thoracic aortic aneurysm (HCC) - Primary Thoracic aneurysm without mention | | of rupture | + + | Coronary artery disease involving [place] coronary artery of [place] heart without | | angina pectoris | + + | Essential hypertension with goal blood pressure less than 130/80 | + + | Hyperlipidemia, mixed Mixed hyperlipidemia | + + documented in this encounter
--- OUTSIDE RECORDS SUMMARY | ~2019-11-16 | XMS | Encounter Summary ---
Demographics + + + | Address | [address] | | | [place] [address] | + + + | Home Phone [...] Team Providers + +------+ + | Care Mycologist Name | Role | Phone | + +------+ + PCP | Unavailable | + +------+ + Encounter Details +--------+ + + + + | Date | Type | Department | Care Team | Description | +--------+ + + + + | 01/27/ | [facility] | [facility] | Jonathan, | | | 2008 | Encounter | MED CTR EMERGENCY | Martell Cr MD [address] | | | | | CENTER [address] | [place] | | | | | [place] | [place] [address] | | | | | [address] | [phone] | | | | | [phone] | | | +--------+ + + + [...] Interrogation | | | | | [facility], | (Primary Dx); | | | | | [place] [address] | Presence of | | | | | [phone] | permanent cardiac | | | | [...] Interrogation | | | | | [facility] [place], | (Primary Dx); | | | | | [place] [address] | Presence of | | | | | [phone] | permanent cardiac | | | | [...] W | | | | | | [place], | | | | | | [place] [address] | | | | | | [phone] | | | | | | | | +--------+ + + + + documented as of this encounter Visit Diagnoses Not on filedocumented in this encounter"
--- OUTSIDE RECORDS SUMMARY | ~2019-11-16 | XMS | Encounter Summary ---
Demographics + + + | Address | [address] | | | [place] [address] | + + + | Home Phone [...] + +------+ + | Care Educational Psychology Teacher Name | Role | Phone | [...] | | | pain | [address] | [address] | | | | | Procedures | St [place] | [place], | | | | | [place] Nuclear | [place] | [place] | | | | | Stress Test | [address] | [address] | | | | | (Vasodilator | Phone: | Phone: | | | | | ) CHG | [phone] | [phone] | | | | | MYOCARDIAL | Fax: | Fax: | | | | | SPECT | [phone] | [phone] | | | | | MULTIPLE | | | | | | | STUDIES | | | +--------+--------+ + + + + Encounter Details +--------+ + + + + | Date | Type | Department | Care Team | Description | +--------+ + + + + | 12/06/ | Hospital | [facility] | Geri Angel, | Other chest pain | | 2013 | Encounter | MED CTR XRAY [address] | THIRD MATE [address] | | | | | [address] [place] | [place] | | | | | [place] [address] | [address] | | | | | [phone] | | | +--------+ + + + [...] + + + +---------+ + + | [place]-3 Fatty | CAPS, one capsule by | [...] Interrogation | | | | | [place], | (Primary Dx); | | | | | [place] [address] | Presence of | | | | | [phone] | permanent cardiac | | | | [...] | Monitor | | MD [address] | Interrogation | | | | | [place], | (Primary Dx); | | | | | [place] [address] | Presence of | | | | | [phone] | permanent cardiac | | | | [...] | | | | | | [place] [address] | | | | | | [phone] | | | | | | | [...] [facility] Diagnostic Imaging | [place] | | Department [address] [facility] | [facility] | | [ rep ct street1+2] [ rep ct [facility] | st zip] Signed | - IMAGING | | | | | Patient Name: MOE GAY | | | Physician: JACKLYN : 1960 Age: 53 Sex: M Unit | | | #: [id number] Exam Date: 12/06/13 Location: | | | [facility] [place] #: [id number] Page: | | | %(RAD)RES..mtdd.print.filter("pg") of %(RAD) | | | RES..mtdd.print.filter("tpg") | | | | | | Accession Number: [id number] | | | PERSANTINE SESTAMIBI STRESS TEST, [...] Transcribed Date/Time: 12/07/2013 08:18 | | | Account Development Manager: <<Signature on File>> | | | | | | Daljit Singletary MD [facility] FAS12/07/13 1321 <Electronically signed | | | by Daljit Singletary MD, FACC, FACP, FASE, FASNC> Daljit | | | MD [employer] [facility] 01/16/14 0701 Account Development Manager: Jessica | | | [id number] PARISA Garcia | | + + + + + + + + | Performing | Address | City/State/Zipcode | Phone Number | | Organization | | | | + + + + + | [facility] | [address] | [place] | [phone] | | [facility] | | [address] | | | - IMAGING | | | | + + + + + documented in this encounter Visit Diagnoses + + | Diagnosis | + + | Other chest pain | + + documented in this encounter
--- OUTSIDE RECORDS SUMMARY | ~2019-11-16 | XMS | Encounter Summary ---
Demographics + + + | Address | [address] | | | [place] [address] | + + + | Home Phone [...] Team Providers + +------+ + | Care Tablet Repair Name | Role | Phone | [...] W | reprogramming/check | | | | [place], | [address] [place] | DO NOT DELETE | | | | [place] [address] | [place] [address] | (Primary Dx); | | | | [phone] | [phone] | Pacemaker - | | | | [...] | | | | | [address] [place], | (Primary Dx); | | | | | [place] [address] | Presence of | | | | | [phone] | permanent cardiac | | | | [...] | 2018 | Monitor | | [address] | Interrogation | | | | | [place], | (Primary Dx); | | | | | [place] [address] | Presence of | | | | | [phone] | permanent cardiac | | | | [...] W | | | | | | [place], | | | | | | [place] [address] | | | | | | [phone] | | | | | | | [...] device data was supervised by | | |S. Fabrice Jaeger MD | | | | | [...]
--- OUTSIDE RECORDS SUMMARY | ~2019-11-16 | XMS | Encounter Summary ---
Demographics + + + | Address | [address] | | | [place] [address] | + + + | Home Phone [...] Team Providers + +------+ + | Care Plumbing And Heating Contractor Name | Role | Phone | [...] W | | | | | [place], | [place], | | | | | [place] [address] | [place] [address] | | | | | [phone] | [phone] | | | | | | | [...] Dx); | | | | | [place] [address] | Presence of | | | | | [phone] | permanent cardiac | | | | [...] | Monitor | | [address] [place] | Interrogation | | | | | [place], | (Primary Dx); | | | | | [place] [address] | Presence of | | | | | [phone] | permanent cardiac | | | | [...] | | | | | | [place] [address] | | | | | | [phone] | | | | | | | | +--------+ + + + + documented as of this encounter Visit Diagnoses Not on filedocumented in this encounter"
--- OUTSIDE RECORDS SUMMARY | ~2019-11-16 | XMS | Encounter Summary ---
Demographics + + + | Address | [address] | | | [place] [address] | + + + | Home Phone [...] Team Providers + +------+ + | Care Egg Caser Name | Role | Phone | [...] Provider Unknown | | | | | [place], [place] | [phone] | | | | | [address] | | | | | | [phone] | | | +--------+ + + + [...] + + + +---------+ + + | [place]-3 Fatty | CAPS, one capsule by | [...] Dx); | | | | | [place] [address] | Presence of | | | | | [phone] | permanent cardiac | | | | [...] Interrogation | | | | | [place], | (Primary Dx); | | | | | [place] [address] | Presence of | | | | | [phone] | permanent cardiac | | | | [...] W | | | | | | [place], | | | | | | [place] [address] | | | | | | [phone] | | | | | | | [...]
--- OUTSIDE RECORDS SUMMARY | ~2019-11-16 | XMS | Encounter Summary ---
Demographics + + + | Address | [address] | | | [place] [address] | + + + | Home Phone [...] Providers + +------+ + | Care School Psychology Specialist Name | Role | Phone | [...] + | 01/03/ | Office | [facility] | [place], | CAD (coronary artery | | 2012 | Visit | CARDIOLOGY [address] | Janeen, AD CLERK [address] | disease) (Primary | | | | [place], | [place], | Dx); Bradycardia; | | | | [place] [address] | [place] [address] | HTN (hypertension); | | | | [phone] | [phone] | Lightheadedness | | | | | [...] Take 1,000 mg by mouth Daily. [place]-3 Fatty Acids (SALMON OIL-1000 PO) CAPS, one [...] [facility] in [place], [place]. EKG showed normal s inus rhythm [...] Refer patient to an electrophysiology specialist in [place] for further evaluation for P VC's ablation. I have given verbal instructions and written material for patient to read mo re about the procedure. 2. Check blood pressure and pulse twice daily for two weeks and return the log to our offic e. 3. Followup appointment after patient's appointment with data entry specialist/ablation. IJaneen ARNP, saw this patient under the direct supervision of Daljit Singletary MD Portions of this report were transcribed using voice recognition software. Every effort wa s made to ensure accuracy; however, inadvertent computerized acetone button paster errors may be pre sent. documented in [...] Dx); | | | | | [place] [address] | Presence of | | | | | [phone] | permanent cardiac | | | | [...] | Monitor | | MD Chiquis Antony [place] | Interrogation | | | | | [place], | (Primary Dx); | | | | | [place] [address] | Presence of | | | | | [phone] | permanent cardiac | | | | [...] | | | | | | [place], | | | | | | [place] [address] | | | | | | [phone] | | | | | | | | +--------+ + + + + documented as of this encounter Visit Diagnoses + + | Diagnosis | + + | CAD (coronary artery disease) - Primary Coronary atherosclerosis of unspecified type | | of vessel, mentasta or graft | + + | Bradycardia Other specified cardiac dysrhythmias | + + | HTN (hypertension) Unspecified essential hypertension | + + | Lightheadedness Dizziness and giddiness | + + documented in this encounter
--- OUTSIDE RECORDS SUMMARY | ~2019-11-16 | XMS | Encounter Summary ---
Demographics + + + | Address | [address] | | | [place] [address] | + + + | Home Phone [...] Providers + +------+ + | Care Automotive Parts Specialist Name | Role | Phone | [...] type ER | [address] | [address] | | | | | FUP | [place] | [place], | | | | | Procedures | [place], [place] | [place] [address] | | | | | FUP - SUW & | [address] | Phone: | | | | | EVM PT, LAST | Phone: | [phone] | | | | | SEEN | [phone] | Fax: | | | | | 08-24-18 | Fax: | [phone] | | | | | | [phone] | | +--------+ + + + + [...] | | | | CENTER [address] | [address] [place] | (Primary Dx) | | | | [place], [place] | [place] [address] | | | | | [address] | [phone] | | | | | [phone] | | | +--------+ + + + [...] through Care Everywhere.Chest Pain, Unc ertain Cause (Luxembourgish)documented in this encounter Medications at Time of [...] + + +---------+ + + | [place]-3 Fatty | CAPS, one capsule by [...] MD [facility] | Interrogation | | | | | [place], | (Primary Dx); | | | | | [place] [address] | Presence of | | | | | [phone] | permanent cardiac | | | | [...] Dx); | | | | | [place] [address] | Presence of | | | | | [phone] | permanent cardiac | | | | [...] W | | | | | | [place], | | | | | | [place] [address] | | | | | | [phone] | | | | | | | [...] | | | | ANGELA MARADIAGA MD ([id number]) | | | | | | on [...] | | | | | | [employer] | | | | | [...] [address] | [place] | [phone] | | [facility] | | [address] | | | - LABORATORY | | [...] + | [facility] | [address] | [place] | [phone] | | [facility] | | [address] | | | - LABORATORY | | [...] - 1.030 | [facility] | | | [place] | | | [facility] | | [...] [address] | [place] | [phone] | | [facility] | | [address] | | | - LABORATORY | | [...] + + | Performing | Address | City/State/[facility] | Phone Number | | Organization | | | | + + + + + | [facility] | [address] | [place] | [phone] | | [facility] | | [address] | | | - LABORATORY | | [...] [address] | [place] | [phone] | | [facility] | | [address] | | | - LABORATORY | | [...] | | | | | | [employer] | | | | | [...] + | [facility] | [address] | [place] | [phone] | | [facility] | | [address] | | | - LABORATORY | | [...] | [address] | | | ENGLISH | RATE,ESTIMATED | | MEDICAL | | | | mL/min/[id number] than | | CENTER - | | [...] + | [facility] | [address] | [place] | [phone] | | [facility] | | [address] | | | - LABORATORY | | [...] [address] | [place] | [phone] | | [facility] | | [address] | | | - LABORATORY | | [...] | | | | ANGELA MARADIAGA MD ([id number]) | | | | | | on [...] | | | | | Maalox. Kalia agrueta., | | | | | | + [...]
--- OUTSIDE RECORDS SUMMARY | ~2019-11-16 | XMS | Encounter Summary ---
Demographics + + + | Address | [address] [place] [address] | | | [place] [address] | + + + | Home Phone [...] [place] | | | | | [address] | | + + + + + Care Team Providers + +------+ + | Care Hand Salter Name | Role | Phone | + [...] | Center at [facility] [address] | MD [address] | | | | | [address] | [place], [place] | | | | | Mailcode: Center | [address] | | | | | [facility] and | [phone] | | | | | [facility] 2 | | | | | | [place], [place] | | | | | | [address] | | | | | | [phone] | | | +--------+ + + + [...]
--- OUTSIDE RECORDS SUMMARY | ~2019-11-16 | XMS | Encounter Summary ---
Demographics + + + | Address | [address] | | | [place] [address] | + + + | Home Phone [...] Providers + +------+ + | Care Aeronautical Test Engineer Name | Role | Phone [...] | RN | | | | | [place], | | | | | | [place] [address] | | | | | | [phone] | | | +--------+ + + + [...] 2019 | Monitor | | [address] | Interrogation | | | | | [place], | (Primary Dx); | | | | | [place] [address] | Presence of | | | | | [phone] | permanent cardiac | | | | [...] 2019 | Monitor | | [address] | Interrogation | | | | | [place], | (Primary Dx); | | | | | [place] [address] | Presence of | | | | | [phone] | permanent cardiac | | | | [...] W | | | | | | [place], | | | | | | [place] [address] | | | | | | [phone] | | | | | | | | +--------+ + + + + documented as of this encounter Visit Diagnoses Not on filedocumented in this encounter"
--- OUTSIDE RECORDS SUMMARY | ~2019-11-16 | XMS | Encounter Summary ---
Demographics + + + | Address | [address] | | | [place] [address] | + + + | Home Phone [...] Providers + +------+ + | Care Credit Analyst Name | Role | Phone | [...] | CARDIOLOGY [address] | [address] [place] | Interrogation | | | | [place], | [place], | (Primary Dx); | | | | [place] [address] | [place] [address] | Pacemaker; | | | | [phone] | [phone] | Sinoatrial node | | | | [...] | | | | | [address], | (Primary Dx); | | | | | [place] [address] | Presence of | | | | | [phone] | permanent cardiac | | | | [...] | 2018 | Monitor | | [address] [place] | Interrogation | | | | | [place], | (Primary Dx); | | | | | [place] [address] | Presence of | | | | | [phone] | permanent cardiac | | | | [...] W | | | | | | [place], | | | | | | [place] [address] | | | | | | [phone] | | | | | | | [...] remote PDF scanned into | | | [facility] for remote interrogation results. Data [...]
--- OUTSIDE RECORDS SUMMARY | ~2019-11-16 | XMS | Encounter Summary ---
Demographics + + + | Address | [address] | | | [place] [address] | + + + | Home Phone [...] + + | 02/21/ | Office | [facility] | [place], | Coronary artery | | 2019 | Visit | CARDIOLOGY [address] | [place] [address] | disease involving | | | | [place], | [place], | g[place] coronary | | | | [place] [address] | [place] [address] | artery of [place] | | | | [phone] | [phone] | heart without angina | | | [...] of non-critical coronary artery d isease involving [place] coronary artery of [place] heart without angina pectoris, essential h ypertension, [...] stay active. He enjoys hunting in his 17u.cne t sherin. He has not had any [...] Preventative health care Coronary artery disease involving [place] coronary artery of [place] heart without angina pectoris Cannabis abuse, daily [...] 3RD DOSE, CALL 911 100 tablet 3 [place]-3 Fatty Acids (SALMON OIL-1000 PO) CAPS, one [...] was found Confirmed by ANGELA MARADIAGA MD ([id number]) on 01/03/2019 8:10:39 PM LAB RESULTS reviewed during visit today primarily from [facility]: LIPID Lab Results Component Value Date [...] BNP 15 01/02/2019 I reviewed records from [facility] for angiogram results on 019 which is summarized in the HPI. RESULTS- I reviewed reports from [facility]: No results found. Left heart catheterization done [...] ASSESSMENT: 1. Non-critical Coronary artery disease involving [place] coronary artery of [place] heart [facility] angina pectoris: A.Normal exercise sestamibi stress test [...] Symptoms with moderate exertion of t he [place] 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 Heart failure stage [...] of presyncope 05/28/10 [facility], thought to have vasovagal symptoms. B. [...] this chart may have been created with [employer] voice recognition software. Occasi onal wrong-word or [...] Interrogation | | | | | [place], | (Primary Dx); | | | | | [place] [address] | Presence of | | | | | [phone] | permanent cardiac | | | | [...] 2018 | Monitor | | [address] | Interrogation | | | | | [place], | (Primary Dx); | | | | | [place] [address] | Presence of | | | | | [phone] | permanent cardiac | | | | [...] W | | | | | | [place], | | | | | | [place] [address] | | | | | | [phone] | | | | | | | | +--------+ + + + + documented as of this encounter Visit Diagnoses + + | Diagnosis | + + | Coronary artery disease involving [place] coronary artery of [place] heart without | | angina pectoris - Primary | + + | Symptomatic PVCs Other premature beats | + + | Essential hypertension Unspecified essential hypertension | + + documented in this encounter
--- OUTSIDE RECORDS SUMMARY | ~2019-11-16 | XMS | Encounter Summary ---
Demographics + + + | Address | [address] | | | [place] [address] | + + + | Home Phone [...] Providers + +------+ + | Care Washer Hand Name | Role | Phone | [...] | region; Cervicalgia | | | | [place], [place] | (Fax) | | | | | [address] | Cesar, | | | | | [phone] | MD Gamaliel | | +--------+ + [...] + + + +---------+ + + | [place]-3 Fatty | CAPS, one capsule by | [...] Date of Service: 05/11/14 150 Status: Signed Line Cleaner: Meliza Macario RN (Registered Nurse) Pt discharged home, discharge instructions were reviewed, prescriptions provided, and quest ions answered. IV discontinued- gauze and tape applied to site. onver fatemeh Transaction, Provider Unknown - 05/11/2014 2:23 PM PDT Nurse Progress Note by Heike Mckeon RN at 05/11/14 1424 Author: Heike Mckeon RN Service: (none) Author Type: Registered Nurse Filed: 05/11/14 1424 Date of Service: 05/11/14 142 Status: Signed Line Cleaner: Heike Mckeon RN (Registered Nurse) Called doctor [...] Interrogation | | | | | [place], | (Primary Dx); | | | | | [place] [address] | Presence of | | | | | [phone] | permanent cardiac | | | | [...] Interrogation | | | | | [place], | (Primary Dx); | | | | | [place] [address] | Presence of | | | | | [phone] | permanent cardiac | | | | [...] W | | | | | | [place], | | | | | | [place] [address] | | | | | | [phone] | | | | | | | [...] | | | intrathecal use. See the glove sewer examination for details of the | | | injection. Bone algorithm noncontrast technique with reformatted | | | sagittal and coronal images. Prior study for review : CT discogram | | | from 2004 was used to orient this examination given the transitional | | | anatomy of the lumbosacral junction FINDINGS: Bucket Turner is notable | | | for a [...] for intrathecal use. See | | the glove sewer examination for details of the injection. Bone algorithm noncontrast | | technique with reformatted sagittal and coronal images. Prior study for review : CT | | discogram from 2004 was used to orient this examination given the transitional anatomy | | of the lumbosacral junction FINDINGS: Bucket Turner is notable for a pacing system. Anterior [...]
--- OUTSIDE RECORDS SUMMARY | ~2019-11-16 | XMS | Encounter Summary ---
Demographics + + + | Address | [address] | | | [place] [address] | + + + | Home Phone [...] Team Providers + +------+ + | Care Implementation Director Name | Role | Phone | [...] + | 03/24/ | Telephone | [facility] | [place], | Other (chest pain) | | 2018 | | CARDIOLOGY [address] | [place] [address] | | | | | [place], | [place], | | | | | [place] [address] | [place] [address] | | | | | [phone] | [phone] | | | | | | | [...] Dx); | | | | | [place] [address] | Presence of | | | | | [phone] | permanent cardiac | | | | [...] | | | | [place] [address] | Presence of | | | | | [phone] | permanent cardiac | | | | [...] | | | | | | [place] [address] | | | | | | [phone] | | | | | | | | +--------+ + + + + documented as of this encounter Visit Diagnoses Not on filedocumented in this encounter"
--- OUTSIDE RECORDS SUMMARY | ~2019-11-16 | XMS | Encounter Summary ---
Demographics + + + | Address | [address] | | | [place] [address] | + + + | Home Phone [...] Providers + +------+ + | Care Drapery Hanger Name | Role | Phone | [...] | | | | abdominal | [address] | [address], | | | | | pain | [address] | [address] | | | | | Chronic pain | [address] | [place], | | | | | syndrome | [place], [place] | [place] [address] | | | | | Procedures | [address] | Phone: | | | | | Office Visit | Phone: | [phone] | | | | | | [phone] | Fax: | | | | | | Fax: | [phone] | | | | | | [phone] | | +--------+--------+ + + + + Encounter Details +--------+---------+ + + + | Date | Type | Department | Care Team | Description | +--------+---------+ + + + | 12/02/ | [facility] | [facility] [place] | Emmanuel Daniel MD | Diarrhea, | | 2018 | Visit | GASTROENTEROLOGY | [address], [place] | unspecified type | | | | [address] | [address] [place], [place] | (Primary Dx); Weight | | | | [address] [place], [place] | [address] | loss, | | | | [address] | | unintentional; | | | | [phone] | | Generalized | | | | [...] Dx); | | | | | [place] [address] | Presence of | | | | | [phone] | permanent cardiac | | | | [...] | 2019 | Monitor | | [address] [place] | Interrogation | | | | | [place], | (Primary Dx); | | | | | [place] [address] | Presence of | | | | | [phone] | permanent cardiac | | | | [...] | | | | | | [place], | | | | | | [place] [address] | | | | | | [phone] | | | | | | | [...]
--- OUTSIDE RECORDS SUMMARY | ~2019-11-16 | XMS | Encounter Summary ---
Demographics + + + | Address | [address] | | | [place] [address] | + + + | Home Phone [...] Team Providers + +------+ + | Care Fence Installer Foreman Name | Role | Phone | [...] Refill | | 2013 | | [facility] | DO [address] | | | | | [address] | [place] | | | | | [place] | [address] | | | | | [address] | | | | | | [phone] | | | +--------+--------+ + + + [...] | Monitor | | MD [address] | Interrogation | | | | | [place], | (Primary Dx); | | | | | [place] [address] | Presence of | | | | | [phone] | permanent cardiac | | | | [...] | Monitor | | MD [address] | Interrogation | | | | | [place], | (Primary Dx); | | | | | [place] [address] | Presence of | | | | | [phone] | permanent cardiac | | | | [...] | | | | | | [place] [address] | | | | | | [phone] | | | | | | | | +--------+ + + + + documented as of this encounter Visit Diagnoses Not on filedocumented in this encounter"
--- OUTSIDE RECORDS SUMMARY | ~2019-11-16 | XMS | Encounter Summary ---
Demographics + + + | Address | [address] | | | [place] [address] | + + + | Home Phone [...] Team Providers + +------+ + | Care Telegraph Editor Name | Role | Phone | + +------+ + | Michael Amadna DO | PCP | | + +------+ + Encounter Details +--------+ + + + + | Date | Type | Department | Care Team | Description | +--------+ + + + + | 02/22/ | Abstract | [facility] [place] | [place], | | | 2013 | | CARDIOLOGY [address] | [place] [address] | | | | | [place], | [place], | | | | | [place] [address] | [place] [address] | | | | | [phone] | [phone] | | | | | | | [...] | Monitor | | MD [address] [place] | Interrogation | | | | | [place], | (Primary Dx); | | | | | [place] [address] | Presence of | | | | | [phone] | permanent cardiac | | | | [...] Interrogation | | | | | [place], | (Primary Dx); | | | | | [place] [address] | Presence of | | | | | [phone] | permanent cardiac | | | | [...] W | | | | | | [place], | | | | | | [place] [address] | | | | | | [phone] | | | | | | | [...] ST. | [address] | [place], [place] | | | [facility] | | [address] | | | - LABORATORY | | [...] | | | LAB | | | [place], | | | | | | External [...] ST. | [address] | [place] | | | [facility] | | [address] | | | - LABORATORY | | [...]
--- OUTSIDE RECORDS SUMMARY | ~2019-11-16 | XMS | Encounter Summary ---
Demographics + + + | Address | [address] | | | [place] [address] | + + + | Home Phone [...] Providers + +------+ + | Care Station Usher Name | Role | Phone | + [...] 2015 | | CARDIOLOGY [address] | HOOK AND EYE SEWING MACHINE OPERATOR [address] [place] | reprogramming/check | | | | [place], | [place], [place] | DO NOT DELETE | | | | [place] [address] | [address] | (Primary Dx); | | | | [phone] | | Pacemaker - | | | [...] 2018 | Monitor | | [address] [place] | Interrogation | | | | | [place], | (Primary Dx); | | | | | [place] [address] | Presence of | | | | | [phone] | permanent cardiac | | | | [...] Monitor | | MD [address] [place] | Interrogation | | | | | [place], | (Primary Dx); | | | | | [place] [address] | Presence of | | | | | [phone] | permanent cardiac | | | | [...] | | | | | | [place], | | | | | | [place] [address] | | | | | | [phone] | | | | | | | [...] | | 2. Coronary artery disease involving [place] coronary artery of | | | [place] heart without angina pectoris I25.10 414.01 ECHO [...]
--- OUTSIDE RECORDS SUMMARY | ~2019-11-16 | XMS | Encounter Summary ---
Demographics + + + | Address | [address] | | | [place] [address] | + + + | Home Phone [...] Team Providers + +------+ + | Care Fact Checker Name | Role | Phone | [...] | (Fax) | | | | | [address] | | | | | | [phone] | | | +--------+ + + + [...] 2019 | Monitor | | [address] [place] | Interrogation | | | | | [place], | (Primary Dx); | | | | | [place] [address] | Presence of | | | | | [phone] | permanent cardiac | | | | [...] Interrogation | | | | | [place], | (Primary Dx); | | | | | [place] [address] | Presence of | | | | | [phone] | permanent cardiac | | | | [...] | | | | | [place], | | | | | | [place] [address] | | | | | | [phone] | | | | | | | | +--------+ + + + + documented as of this encounter Visit Diagnoses Not on filedocumented in this encounter"
--- OUTSIDE RECORDS SUMMARY | ~2019-11-16 | XMS | Encounter Summary ---
Demographics + + + | Address | [address] | | | [place] [address] | + + + | Home Phone [...] Providers + +------+ + | Care Timber Cutter Name | Role | Phone | [...] CARDIOLOGY [address] | MD [address] [place] | reprogramming/check | | | | [place], | [place], | [place] DE[place] | | | | [place] [address] | [place] [address] | (Primary Dx); | | | | [phone] | [phone] | Pacemaker - | | | | [...] Interrogation | | | | | [place], | (Primary Dx); | | | | | [place] [address] | Presence of | | | | | [phone] | permanent cardiac | | | | [...] Interrogation | | | | | [place], | (Primary Dx); | | | | | [place] [address] | Presence of | | | | | [phone] | permanent cardiac | | | | [...] W | | | | | | [place], | | | | | | [place] [address] | | | | | | [phone] | | | | | | | [...]
--- OUTSIDE RECORDS SUMMARY | ~2019-11-16 | XMS | Encounter Summary ---
Demographics + + + | Address | [address] [place] [address] | | | [place] [address] | + + + | Home Phone [...] [place] | | | | | [address] | | + + + + + Care Team Providers + +------+ + | Care Fast Food Sales Assistant Name | Role | Phone [...] | | [place] | [facility] [place] | ED) | | | | Mailcode: Center | [address] | | | | | for Health and | [phone] | | | | | [facility] 2 | | | | | | [place], [place] | | | | | | [address] | | | | | | [phone] | | | +--------+ + + + [...]
--- OUTSIDE RECORDS SUMMARY | ~2019-11-16 | XMS | Encounter Summary ---
Demographics + + + | Address | [address] | | | [place] [address] | + + + | Home Phone [...] Providers + +------+ + | Care Case Resource Manager Name | Role | Phone | + +------+ + | Kirk French MD | PCP | | + +------+ + Encounter Details +--------+ + + + + | Date | Type | Department | Care Team | Description | +--------+ + + + + | 11/16/ | Hospital | [facility] | Kirk French | Aneurysm (HCC) | | 2017 | Encounter | MED CTR ULTRASOUND | D, MD [address] | | | | | [address] [place] | [address] | | | | | [place], [place] | [place] [address] | | | | | [address] | [phone] | | | | | [phone] | | | | | | | [...] + + + +---------+ + + | [place]-3 Fatty | CAPS, one capsule by | [...] | Monitor | | MD [address] [place] | Interrogation | | | | | [place], | (Primary Dx); | | | | | [place] [address] | Presence of | | | | | [phone] | permanent cardiac | | | | [...] Dx); | | | | | [place] [address] | Presence of | | | | | [phone] | permanent cardiac | | | | [...] | | | | | | [place], | | | | | | [place] [address] | | | | | | [phone] | | | | | | | [...]
--- OUTSIDE RECORDS SUMMARY | ~2019-11-16 | XMS | Encounter Summary ---
Demographics + + + | Address | [address] | | | [place] [address] | + + + | Home Phone [...] Providers + +------+ + | Care Bereavement Counselor Name | Role | Phone | + +------+ + | Michael Amanda DO | PCP | | + +------+ + Encounter Details +--------+ + + + + | Date | Type | Department | Care Team | Description | +--------+ + + + + | 04/03/ | Hospital | [facility] | Jay Gambino MD | | | 2012 - | Encounter | [facility] | [address] | | | | | CARDIAC TRANSPLANT | [address] [place] | | | 04/04/ | | [address] | [place] [address] | | | 2012 | | [place] | [phone] | | | | | [address] | | | | | | [phone] | | | +--------+ + + + [...] 1960 ADMISSION DATE: 04/03/2013 DISCHARGE DATE: 04/04/2013 [id number] / [id number] ADMISSION DIAGNOSES: 1. Symptomatic premature ventricular contractions [...] study and ablati on. MOE GAY ADM:04/03/13 [id number] 04/04/13 [place] DISCHARGE SUMMARY [id number] [facility] PARISA Hughes [facility] MD Meena Pleitez THIS REPORT IS CONFIDENTIAL AND NOT TO BE RELEASED WITHOUT PROPER AUTHORIZATION. [facility] Mr. Gay was taken to [...] 180 mg once daily. MOE GAY ADM:04/03/13 [id number] 04/04/13 DIS [place] DISCHARGE SUMMARY [id number] [facility] PARISA Hughes [facility] MD Meena Pleitez THIS REPORT IS CONFIDENTIAL AND NOT TO BE RELEASED WITHOUT PROPER AUTHORIZATION. [facility] 5. Docusate sodium 2 tablets once daily. 6. Marinol 10 mg twice daily. 7. Metoprolol succinate 200 mg once daily. 8. Oxycodone 10 mg 10 mg oral as needed. 9. Oxycodone 30 mg oral twice daily. 10. Pravastatin 40 mg at bedtime. 11. Promethazine 25 mg as needed. 12. Ranitidine 1 to 2 tablets once daily. 13. [place] oil 2 tablets twice daily. 14. Valacyclovir 500 mg once daily. There were no new medications or medication dosage changes at time of discharge. PLAN: 1. Mr. Gay will be discharged home on medications as noted above, including his usual m edications of diltiazem and metoprolol. 2. He will be seen and followed by Dr. Gambino on 16 at 9:00 a.m. at [facility], [address]. 3. He will contact our office earlier than scheduled appointment should he have any diffic ulty prior to that time. PARISA Hughes MD A P RICHIE/med #[id number] cc: MD Dona Pleitez ARNP Suwong Wongsuwan, MD Electronically Signed 04/12/13 1400 PARISA Hughes Electronically Signed 05/22/13 1245 Jay Gambino MD MOE GAY ADM:04/03/13 [id number] 04/04/13 DIS [place] DISCHARGE SUMMARY [id number] [facility] PARISA Hughes [facility] Jay Gambino MD R THIS REPORT IS CONFIDENTIAL AND NOT TO BE RELEASED WITHOUT PROPER AUTHORIZATION.Electronica lly signed by Jael Brown at 05/22/2013 1:25 PM Dona Grossman ARNP - 04/04/2013 9:05 AM PDT PATIENT NAME: MOE GAY Sex/Age: M / 53Y : 1960 ADMISSION DATE: 04/03/2013 DISCHARGE DATE: 04/04/2013 [id number] / [id number] ADMISSION DIAGNOSES: 1. Symptomatic premature ventricular contractions [...] and ablati on. MOE GAY Jaimee ADM:04/03/13 [id number] 04/04/13 [place] DISCHARGE SUMMARY [id number] [facility] PARISA Hughes [facility] MD Meena Pleitez THIS REPORT IS CONFIDENTIAL AND NOT TO BE RELEASED WITHOUT PROPER AUTHORIZATION. [facility] Mr. Gay was taken to [...] 180 mg once daily. MOE GAY ADM:04/03/13 [id number] 04/04/13 DIS [place] DISCHARGE SUMMARY [id number] [facility] PARISA Hughes [facility] MD Meena Pleitez THIS REPORT IS CONFIDENTIAL AND NOT TO BE RELEASED WITHOUT PROPER AUTHORIZATION. [facility] 5. Docusate sodium 2 tablets once daily. 6. Marinol 10 mg twice daily. 7. Metoprolol succinate 200 mg once daily. 8. Oxycodone 10 mg 10 mg oral as needed. 9. Oxycodone 30 mg oral twice daily. 10. Pravastatin 40 mg at bedtime. 11. Promethazine 25 mg as needed. 12. Ranitidine 1 to 2 tablets once daily. 13. [place] oil 2 tablets twice daily. 14. Valacyclovir 500 mg once daily. There were no new medications or medication dosage changes at time of discharge. PLAN: 1. Mr. Gay will be discharged home on medications as noted above, including his usual m edications of diltiazem and metoprolol. 2. He will be seen and followed by Dr. Gambino on 16 at 9:00 a.m. at [facility], [address]. 3. He will contact our office earlier than scheduled appointment should he have any diffic ulty prior to that time. PARISA Hughes MD A P RICHIE/med #[id number] cc: MD Dona Pleitez ARNP Suwong Wongsuwan, MD Electronically Signed 04/12/13 1400 PARISA Hughes MOE GAY ADM:04/03/13 [id number] 04/04/13 DIS [place] DISCHARGE SUMMARY [id number] [facility] PARISA Hughes [facility] MD Meena Pleitez [...] Dx); | | | | | [place] [address] | Presence of | | | | | [phone] | permanent cardiac | | | | [...] Interrogation | | | | | [place], | (Primary Dx); | | | | | [place] [address] | Presence of | | | | | [phone] | permanent cardiac | | | | [...] W | | | | | | [place], | | | | | | [place] [address] | | | | | | [phone] | | | | | | | [...] + + + | Glucose | 94Comment: Prydeinig | 65 - 99 mg/dL | [facility] [...] + + | YESSY JONES | [address] | [place] [address] | | | [facility] | [...] + + | YESSY JONES | [address] [place] | [place] [address] | | | [facility] | | | | | LABORATORY | | | | + + + + + documented in this encounter Visit Diagnoses Not on filedocumented in this encounter"
--- OUTSIDE RECORDS SUMMARY | ~2019-11-16 | XMS | Encounter Summary ---
Demographics + + + | Address | [address] | | | [place] [address] | + + + | Home Phone [...] + + | 10/25/ | Telephone | [facility] | Silvia, | Other (patient has | | 2013 | | CARDIOLOGY [address] | Janeen STEM FRAZER [address] | changed his mind) | | | | [place], | [place], | | | | | [place] [address] | [place] [address] | | | | | [phone] | | | | | | | [...] | Monitor | | MD [address] [place] | Interrogation | | | | | [place], | (Primary Dx); | | | | | [place] [address] | Presence of | | | | | [phone] | permanent cardiac | | | | [...] 2018 | Monitor | | [address] [place] | Interrogation | | | | | [place], | (Primary Dx); | | | | | [place] [address] | Presence of | | | | | [phone] | permanent cardiac | | | | [...] | | | | | | [place] [address] | | | | | | [phone] | | | | | | | | +--------+ + + + + documented as of this encounter Visit Diagnoses Not on filedocumented in this encounter"
--- OUTSIDE RECORDS SUMMARY | ~2019-11-16 | XMS | Encounter Summary ---
Demographics + + + | Address | [address] | | | [place] [address] | + + + | Home Phone [...] Providers + +------+ + | Care Acid Condenser Name | Role | Phone | + [...] | 06/17/ | Telephone | [facility] | Silvia, | Lab Order (due for | | 2015 | | CARDIOLOGY [address] | PARISA [place] [address] | fasting labs prior | | | | [place], | [place], | to appt) | | | | [place] [address] | [place] [address] | | | | | [phone] | [phone] | | | | | | | [...] Monitor | | MD [address] [place] | Interrogation | | | | | [place], | (Primary Dx); | | | | | [place] [address] | Presence of | | | | | [phone] | permanent cardiac | | | | [...] Monitor | | MD [address] [place] | Interrogation | | | | | [place], | (Primary Dx); | | | | | [place] [address] | Presence of | | | | | [phone] | permanent cardiac | | | | [...] | | | | | | [place], | | | | | | [place] [address] | | | | | | [phone] | | | | | | | | +--------+ + + + + documented as of this encounter Visit Diagnoses + + | Diagnosis | + + | Hyperlipidemia, mixed - Primary Mixed hyperlipidemia | + + documented in this encounter"
--- OUTSIDE RECORDS SUMMARY | ~2019-11-16 | XMS | Encounter Summary ---
Demographics + + + | Address | [address] | | | [place] [address] | + + + | Home Phone [...] + +------+ + | Care Silk Screen Painter Name | Role | Phone | + +------+ + PCP | Unavailable | + +------+ + Encounter Details +--------+ + + + + | Date | Type | Department | Care Team | Description | +--------+ + + + + | 05/13/ | Hospital | [facility] | | | | 2007 | Encounter | MED CTR EMERGENCY | | | | | | [place] [address] | | | | | | [place] | | | | | | [address] | | | | | | [phone] | | | +--------+ + + + [...] | | | | [place] [address] | Presence of | | | | | [phone] | permanent cardiac | | | | [...] Dx); | | | | | [place] [address] | Presence of | | | | | [phone] | permanent cardiac | | | | [...] W | | | | | | [place], | | | | | | [place] [address] | | | | | | [phone] | | | | | | | | +--------+ + + + + documented as of this encounter Visit Diagnoses Not on filedocumented in this encounter"
--- OUTSIDE RECORDS SUMMARY | ~2019-11-16 | XMS | Encounter Summary ---
Demographics + + + | Address | [address] | | | [place] [address] | + + + | Home Phone [...] + +------+ + | Care Wastewater Plant Civil Engineer Name | Role | Phone [...] Amanda, | | | 2013 | | [facility] | DO [address] | | | | | [address] | [place] | | | | | [place] | [address] | | | | | [address] | | | | | | [phone] | | | +--------+ + + + [...] 2019 | Monitor | | [address] [place] | Interrogation | | | | | [facility], | (Primary Dx); | | | | | [place] [address] | Presence of | | | | | [phone] | permanent cardiac | | | | [...] | | | | | [place], | (Primary Dx); | | | | | [place] [address] | Presence of | | | | | [phone] | permanent cardiac | | | | [...] | | | | | | [place], | | | | | | [place] [address] | | | | | | [phone] | | | | | | | [...] | AST | 32 | U/L | JACKRESHMA | | | | | | STJuan [...] [address] | [place] | [phone] | | [facility] | | [address] | | | - LABORATORY | | | | + + + + + | [address] | [address] | [place] | | | [facility] | | [address] | | | - LABORATORY | | [...] [facility] | + + External Lab: PIOT (07/26/2014) + +-------+ + + + | [...] | | | | | | | [place], | | | | | | External [...]
--- OUTSIDE RECORDS SUMMARY | ~2019-11-16 | XMS | Encounter Summary ---
Demographics + + + | Address | [address] | | | [place] [address] | + + + | Home Phone [...] Providers + +------+ + | Care Farm Machine Tender Name | Role | Phone | + +------+ + PCP | Unavailable | + +------+ + Encounter Details +--------+ + + + + | Date | Type | Department | Care Team | Description | +--------+ + + + + | 08/02/ | Hospital | [facility] | | | | 2001 | Encounter | MED CTR EMERGENCY | | | | | | [place] [address] | | | | | | [place] | | | | | | [address] | | | | | | [phone] | | | +--------+ + + + [...] Dx); | | | | | [place] [address] | Presence of | | | | | [phone] | permanent cardiac | | | | [...] Interrogation | | | | | [place], | (Primary Dx); | | | | | [place] [address] | Presence of | | | | | [phone] | permanent cardiac | | | | [...] W | | | | | | [place], | | | | | | [place] [address] | | | | | | [phone] | | | | | | | | +--------+ + + + + documented as of this encounter Visit Diagnoses Not on filedocumented in this encounter"
--- OUTSIDE RECORDS SUMMARY | ~2019-11-16 | XMS | Encounter Summary ---
Demographics + + + | Address | [address] | | | [place] [address] | + + + | Home Phone [...] Providers + +------+ + | Care Welding Equipment Sales Representative Name | Role | Phone | + +------+ + | Kirk French MD | PCP | | + +------+ + Encounter Details +--------+ + + + + | Date | Type | Department | Care Team | Description | +--------+ + + + + | 07/21/ | Hospital | [facility] | Daljit Singletary, | | | 2018 | Encounter | MED CTR NUCLEAR | MD [address] [place] | | | | | MEDICINE [address] | [address], | | | | | [place], | [place] [address] | | | | | [place] [address] | [phone] | | | | | [phone] | | | +--------+ + + + [...] + + +---------+ + + | [place]-3 Fatty | CAPS, one capsule by [...] Dx); | | | | | [place] [address] | Presence of | | | | | [phone] | permanent cardiac | | | | [...] | 2018 | Monitor | | [address] [place] | Interrogation | | | | | [facility], | (Primary Dx); | | | | | [place] [address] | Presence of | | | | | [phone] | permanent cardiac | | | | [...] | | | | | | [place], | | | | | | [place] [address] | | | | | | [phone] | | | | | | | [...] | | | | | | Starting [facility] 07/21/18 at 1224, For | | | | | | | 1 dose, Nuclear Medicine | | | | | | + +--------+ + +------+------+ +---+---+ | | | +---+---+ documented in this encounter"
--- OUTSIDE RECORDS SUMMARY | ~2019-11-16 | XMS | Encounter Summary ---
Demographics + + + | Address | [address] | | | [place] [address] | + + + | Home Phone [...] Providers + +------+ + | Care Aoc Operations Intelligence Officer Name | Role | Phone | [...] | | | [place], [place] | [place] [address] | | | | | | [address] | Phone: | | | | | | Phone: | [phone] | | | | | | [phone] | Fax: | | | | | | Fax: | [phone] | | | | | | [phone] | | +--------+ + + + + [...] | | 2014 | Visit | [facility] [place] | DO [address] | care (Primary Dx); | | | | [address] | [place] | Cannabis abuse, | | | | [place] | [address] | daily use; Urinary | | | | [address] | | frequency; | | | | [phone] | | Incontinence; | | | | [...] needed for Chest pain. 25 tablet 12 [place]-3 Fatty Acids (SALMON OIL-1000 PO) CAPS, one capsule by mouth daily twice daily ONE TOUCH DELICA LANCETS [facility] Check glucose as needed [...] as Nurse Practitioner (Cardiology) FENG Chou (Physician Drafter Automotive Design Layout) Current Medicare Suppliers: [facility] - [place], [place] - [address] [place] [address] [facility] - [place], [place] - [address] [place] [address] HEALTH RISK ASSESSMENT: : The patient or [...] following health maintenance items are reviewed in [facility] and correct as of today: Health [...] no kevin in the usual sections in [employer]. documented in this en counter Plan of Treatment +--------+ + + + + | Date | Type | Specialty | Care Team | Description | +--------+ + + + + | 11/20/ | Implant | Cardiology | Daljit Singletary, | Remote Device | | 2019 | Monitor | | [address] [facility] | Interrogation | | | | | [place], | (Primary Dx); | | | | | [place] [address] | Presence of | | | | | [phone] | permanent cardiac | | | | [...] | | | | | [place], | (Primary Dx); | | | | | [place] [address] | Presence of | | | | | [phone] | permanent cardiac | | | | [...] W | | | | | | [place], | | | | | | [place] [address] | | | | | | [phone] | | | | | | | [...]
--- OUTSIDE RECORDS SUMMARY | ~2019-11-16 | XMS | Encounter Summary ---
Demographics + + + | Address | [address] | | | [place] [address] | + + + | Home Phone [...] + + + + | 04/28/ | [facility] | [facility] | Jonathan, | | | 2008 | Encounter | MED CTR EMERGENCY | Martell Cr MD [address] | | | | | CENTER [address] | [place] | | | | | [place] | [place] [address] | | | | | [address] | [phone] | | | | | [phone] | | | +--------+ + + + [...] Interrogation | | | | | [place], | (Primary Dx); | | | | | [place] [address] | Presence of | | | | | [phone] | permanent cardiac | | | | [...] Interrogation | | | | | [facility], | (Primary Dx); | | | | | [place] [address] | Presence of | | | | | [phone] | permanent cardiac | | | | [...] W | | | | | | [place], | | | | | | [place] [address] | | | | | | [phone] | | | | | | | | +--------+ + + + + documented as of this encounter Visit Diagnoses Not on filedocumented in this encounter"
--- OUTSIDE RECORDS SUMMARY | ~2019-11-16 | XMS | Encounter Summary ---
Demographics + + + | Address | [address] | | | [place] [address] | + + + | Home Phone [...] Providers + +------+ + | Care Machine Hose Cutter Name | Role | Phone | [...] Provider Unknown | | | | | [place], [place] | [phone] | | | | | [address] | | | | | | [phone] | | | +--------+ + + + [...] + + + +---------+ + + | [place]-3 Fatty | CAPS, one capsule by | [...] Dx); | | | | | [place] [address] | Presence of | | | | | [phone] | permanent cardiac | | | | [...] Dx); | | | | | [place] [address] | Presence of | | | | | [phone] | permanent cardiac | | | | [...] W | | | | | | [place], | | | | | | [place] [address] | | | | | | [phone] | | | | | | | [...]
--- OUTSIDE RECORDS SUMMARY | ~2019-11-16 | XMS | Encounter Summary ---
Demographics + + + | Address | [address] | | | [place] [address] | + + + | Home Phone [...] Providers + +------+ + | Care Online Affiliate Marketing Manager Name | Role | Phone | + +------+ + PCP | Unavailable | + +------+ + Encounter Details +--------+ + + + + | Date | Type | Department | Care Team | Description | +--------+ + + + + | 01/17/ | [facility] | [facility] | Jonas Ramos, | | | 2009 | Encounter | MED CTR EMERGENCY | MD [address] | | | | | CENTER [address] | [facility] [place] | | | | | [place] | [place] [address] | | | | | [address] | [phone] | | | | | [phone] | | | +--------+ + + + [...] Dx); | | | | | [place] [address] | Presence of | | | | | [phone] | permanent cardiac | | | | [...] Dx); | | | | | [place] [address] | Presence of | | | | | [phone] | permanent cardiac | | | | [...] W | | | | | | [place], | | | | | | [place] [address] | | | | | | [phone] | | | | | | | | +--------+ + + + + documented as of this encounter Visit Diagnoses Not on filedocumented in this encounter"
--- OUTSIDE RECORDS SUMMARY | ~2019-11-16 | XMS | Encounter Summary ---
Demographics + + + | Address | [address] | | | [place] [address] | + + + | Home Phone [...] + +------+ + | Care Medical Records Specialist Name | Role | Phone [...] W | Dx) | | | | [place] [address] | [address] [place] | | | | | [place], [place] | [place] [address] | | | | | [address] | [phone] | | | | | [phone] | | | +--------+ + + + [...] + + + +---------+ + + | [place]-3 Fatty | CAPS, one capsule by | [...] 2019 | Monitor | | [address] [place] | Interrogation | | | | | [place], | (Primary Dx); | | | | | [place] [address] | Presence of | | | | | [phone] | permanent cardiac | | | | [...] Dx); | | | | | [place] [address] | Presence of | | | | | [phone] | permanent cardiac | | | | [...] | | | | | | [place] [address] | | | | | | [phone] | | | | | | | [...] W?MRN: | | | | | | [id number] | | | [id number] | | | his | | | [...] | | | ent/60 | | | [id number] | | | -5586- | | | [...] | | | St. | | | [place] | | | y H. | | [...] | | | St. | | | [place] | | | y H. | | [...] | | | St. | | | [place] | | | y H. | | [...] | | | St. | | | [place] | | | y H. | | [...] | | | St. | | | [place] | | | y | | | [...] | | | ext. | | | [address] | | | or go | | [...] ST. | [address] | [place] | [phone] | | [facility] | | [address] | | | - LABORATORY | | [...] [address] | [place] | [phone] | | [facility] | | [address] | | | - LABORATORY | | [...] | 0.82 | 0.60 - 1.30 | [facility] | | | | | mg/dL | [facility] | | | | | | MEDICAL | | | | | | CENTER - | | | | | | LABORATORY | | + + + + + + | eGFR if not | >60Comment: GLOMERULAR | >=60 | [facility] | | | | FILTRATION | mL/min/1.73m2 | [facility] | | | [place] | RATE,ESTIMATED | | MEDICAL | | | | mL/min/1.96j3Qkte than | | CENTER - | | [...] [address] | [place] | [phone] | | [facility] | | [address] | | | - LABORATORY | | | | + + + + + CBC with Differential (02/01/2018 2:14 PM PDT) + +-------+ + + + | Component | Value | Ref Range | Performed | Pathologist | | | | | At | Signature | + +-------+ + + + | WBC | 6.7 | 4.0 - 11.0 K/uL | [facility] [...] ST. | [address] | [place] | [phone] | | [facility] | | [address] | | | - LABORATORY | | | | + + + + + documented in this encounter Visit Diagnoses + + | Diagnosis | + + | Bronchitis - Primary Bronchitis, not specified as acute or chronic | + + documented in this encounter"
--- OUTSIDE RECORDS SUMMARY | ~2019-11-16 | XMS | Encounter Summary ---
Demographics + + + | Address | [address] | | | [place] [address] | + + + | Home Phone [...] Team Providers + +------+ + | Care Polygraph Technician Name | Role | Phone | [...] Provider Unknown | | | | | [place], [place] | [phone] | | | | | [address] | | | | | | [phone] | | | +--------+ + + + [...] + + + +---------+ + + | [place]-3 Fatty | CAPS, one capsule by | [...] Dx); | | | | | [place] [address] | Presence of | | | | | [phone] | permanent cardiac | | | | [...] Interrogation | | | | | [place], | (Primary Dx); | | | | | [place] [address] | Presence of | | | | | [phone] | permanent cardiac | | | | [...] W | | | | | | [place], | | | | | | [place] [address] | | | | | | [phone] | | | | | | | [...]
--- OUTSIDE RECORDS SUMMARY | ~2019-11-16 | XMS | Encounter Summary ---
Demographics + + + | Address | [address] | | | [place] [address] | + + + | Home Phone [...] Providers + +------+ + | Care Line Puller Name | Role | Phone | [...] + | 11/26/ | Telephone | [facility] | Silvia, | Appointment (Needs | | 2017 | | CARDIOLOGY [address] | [place] [address] | rescheduled) | | | | [place], | [place], | | | | | [place] [address] | [place] [address] | | | | | [phone] | [phone] | | | | | | | [...] | Monitor | | MD [address] | Interrogation | | | | | [place], | (Primary Dx); | | | | | [place] [address] | Presence of | | | | | [phone] | permanent cardiac | | | | [...] | Monitor | | MD [address] | Interrogation | | | | | [place], | (Primary Dx); | | | | | [place] [address] | Presence of | | | | | [phone] | permanent cardiac | | | | [...] | | | | | | [place] [address] | | | | | | [phone] | | | | | | | | +--------+ + + + + documented as of this encounter Visit Diagnoses Not on filedocumented in this encounter"
--- OUTSIDE RECORDS SUMMARY | ~2019-11-16 | XMS | Encounter Summary ---
Demographics + + + | Address | [address] | | | [place] [address] | + + + | Home Phone [...] Providers + +------+ + | Care Scrap [employer] Name | Role | Phone | [...] Provider Unknown | | | | | [place], [place] | [phone] | | | | | [address] | | | | | | [phone] | | | +--------+ + + + [...] + + + +---------+ + + | Star-3 Fatty | CAPS, one capsule by | [...] Dx); | | | | | [place] [address] | Presence of | | | | | [phone] | permanent cardiac | | | | [...] Interrogation | | | | | [facility], | (Primary Dx); | | | | | [place] [address] | Presence of | | | | | [phone] | permanent cardiac | | | | [...] W | | | | | | [place], | | | | | | [place] [address] | | | | | | [phone] | | | | | | | [...]
--- OUTSIDE RECORDS SUMMARY | ~2019-11-16 | XMS | Encounter Summary ---
Demographics + + + | Address | [address] | | | [place] [address] | + + + | Home Phone [...] Team Providers + +------+ + | Care Pizza Maker Name | Role | Phone | [...] unspecified | [address] | | | | | type | [address] | [place], | | | | | Procedures | [place], | [place] | | | | | [place] | [place] [address] | [address] | | | | | Stress Test | Phone: | Phone: | | | | | (Vasodilator | [phone] | [phone] | | | | | ) CHG | Fax: | Fax: | | | | | MYOCARDIAL | [phone] | [phone] | | | | | SPECT | | | | | | | MULTIPLE | | | | | | | STUDIES MI | | | | | | | CV STRS TST | | | | | | | XERS&/OR RX | | | | | | | CONT ECG W/O | | | | | | | I&R MI | | | | | | | [...] unspecified | [address] | [address] | | | | | type | [address] | [place], | | | | | Procedures | [place], | [place] | | | | | [place] | [place] [address] | [address] | | | | | Stress Test | Phone: | Phone: | | | | | (Vasodilator | [phone] | [phone] | | | | | ) CHG | Fax: | Fax: | | | | | MYOCARDIAL | [phone] | [phone] | | | | | SPECT | | | | | | | MULTIPLE | | | | | | | STUDIES MI | | | | | | | CV STRS TST | | | | | | | XERS&/OR RX | | | | | | | CONT ECG W/O | | | | | | | I&R MI | | | | | | | [...] | 07/21/ | Hospital | [facility] | Daljit Singletary, | Chest pain, | | 2018 | Encounter | MED CTR NUCLEAR | MD [address] | unspecified type | | | | MEDICINE [address] [place], | | | | | [place], | [place] [address] | | | | | [place] [address] | [phone] | | | | | [phone] | | | | | | | Lesson InstructorPavel | | +--------+ + + + + [...] + + + +---------+ + + | [place]-3 Fatty | CAPS, one capsule by | [...] Dx); | | | | | [place] [address] | Presence of | | | | | [phone] | permanent cardiac | | | | [...] | 2019 | Monitor | | MD [address] | Interrogation | | | | | [place], | (Primary Dx); | | | | | [place] [address] | Presence of | | | | | [phone] | permanent cardiac | | | | [...] | | | | | | [place] [address] | | | | | | [phone] | | | | | | | [...] | | | | | Starting Talia 8/30/18 at 0822, For | | | | | | | 1 dose, Nuclear Medicine | | | | | | + +-------+ + +---+---+ +---+---+ | | | +---+---+ documented in this encounter"
--- OUTSIDE RECORDS SUMMARY | ~2019-11-16 | XMS | Encounter Summary ---
Demographics + + + | Address | [address] | | | [place] [address] | + + + | Home Phone [...] + + | 04/23/ | Hospital | [facility] | | | | 2007 - | Encounter | MED CTR MED ONC | | | | | | [address] | | | | 04/24/ | | [place] [address] | | | | 2007 | | [phone] | | | +--------+ + + + [...] | | | | [place] [address] | Presence of | | | | | [phone] | permanent cardiac | | | | [...] Interrogation | | | | | [facility] [place], | (Primary Dx); | | | | | [place] [address] | Presence of | | | | | [phone] | permanent cardiac | | | | [...] W | | | | | | [place], | | | | | | [place] [address] | | | | | | [phone] | | | | | | | | +--------+ + + + + documented as of this encounter Visit Diagnoses Not on filedocumented in this encounter"
--- OUTSIDE RECORDS SUMMARY | ~2019-11-16 | XMS | Encounter Summary ---
Demographics + + + | Address | [address] | | | [place] [address] | + + + | Home Phone [...] 2012 | | CARDIOLOGY [address] | KINDERGARTEN CLASSROOM TEACHER [address] | | | | | [place], | [place], [place] | | | | | [place] [address] | [address] | | | | | [phone] | | | +--------+ + + + [...] Interrogation | | | | | [facility], | (Primary Dx); | | | | | [place] [address] | Presence of | | | | | [phone] | permanent cardiac | | | | [...] Interrogation | | | | | [place], | (Primary Dx); | | | | | [place] [address] | Presence of | | | | | [phone] | permanent cardiac | | | | [...] | | | | | [place], | | | | | | [place] [address] | | | | | | [phone] | | | | | | | | +--------+ + + + + documented as of this encounter Visit Diagnoses Not on filedocumented in this encounter"
--- OUTSIDE RECORDS SUMMARY | ~2019-11-16 | XMS | Encounter Summary ---
Demographics + + + | Address | [address] | | | [place] [address] | + + + | Home Phone [...] Providers + +------+ + | Care Timber Rider Name | Role | Phone | [...] | [address] [place] | [place] [address] | | | | | [address] | [phone] | | | | | [phone] | | | +--------+ + + + [...] Interrogation | | | | | [facility], | (Primary Dx); | | | | | [place] [address] | Presence of | | | | | [phone] | permanent cardiac | | | | [...] Interrogation | | | | | [place], | (Primary Dx); | | | | | [place] [address] | Presence of | | | | | [phone] | permanent cardiac | | | | [...] W | | | | | | [place], | | | | | | [place] [address] | | | | | | [phone] | | | | | | | | +--------+ + + + + documented as of this encounter Visit Diagnoses Not on filedocumented in this encounter"
--- OUTSIDE RECORDS SUMMARY | ~2019-11-16 | XMS | Encounter Summary ---
Demographics + + + | Address | [address] | | | [place] [address] | + + + | Home Phone [...] Providers + +------+ + | Care Campus Administrator Name | Role | Phone | + +------+ + PCP | Unavailable | + +------+ + Encounter Details +--------+ + + + + | Date | Type | Department | Care Team | Description | +--------+ + + + + | 08/17/ | [facility] | [facility] | Evan Gandara MD | | | 2005 | Encounter | MED CTR LABORATORY | [address] [facility] | | | | | [address] | [place] | | | | | [place] | [address] | | | | | [address] | | | | | | [phone] | | | +--------+ + + + [...] Interrogation | | | | | [place], | (Primary Dx); | | | | | [place] [address] | Presence of | | | | | [phone] | permanent cardiac | | | | [...] Interrogation | | | | | [place], | (Primary Dx); | | | | | [place] [address] | Presence of | | | | | [phone] | permanent cardiac | | | | [...] W | | | | | | [place], | | | | | | [place] [address] | | | | | | [phone] | | | | | | | | +--------+ + + + + documented as of this encounter Visit Diagnoses Not on filedocumented in this encounter"
--- OUTSIDE RECORDS SUMMARY | ~2019-11-16 | XMS | Encounter Summary ---
Demographics + + + | Address | [address] | | | [place] [address] | + + + | Home Phone [...] Providers + +------+ + | Care Civil Lawyer Name | Role | Phone | [...] | | | | | region | [address] | | | | | | Procedures | [address] | | | | | | CT | [place], [place] | | | | | | Myelography | [address] | | | | | | Lumbar Spine | Phone: | | | | | | | [phone] | | | | | | | Fax: | | | | | | | [phone] | | +--------+--------+ + + + + [...] | | | | | region | [address] | | | | | | Procedures | [address] | | | | | | CT | [place], [place] | | | | | | Myelography | [address] | | | | | | Lumbar Spine | Phone: | | | | | | | [phone] | | | | | | | Fax: | | | | | | | [phone] | | +--------+--------+ + + + + Encounter Details +--------+ + + + + | Date | Type | Department | Care Team | Description | +--------+ + + + + | 04/07/ | Hospital | [facility] | Pia Akhtar | Spinal stenosis, | | 2016 | Encounter | MED CTR [address] | MD [address] | lumbar region | | | | [place], | [address] | | | | | [place] [address] | [place] [address] | | | | | [phone] | | | | | | | [...] + + + +---------+ + + | [place]-3 Fatty | CAPS, one capsule by | [...] Dx); | | | | | [place] [address] | Presence of | | | | | [phone] | permanent cardiac | | | | [...] Dx); | | | | | [place] [address] | Presence of | | | | | [phone] | permanent cardiac | | | | [...] W | | | | | | [place], | | | | | | [place] [address] | | | | | [phone] | | | | | | | [...]
--- OUTSIDE RECORDS SUMMARY | ~2019-11-16 | XMS | Encounter Summary ---
Demographics + + + | Address | [address] | | | [place] [address] | + + + | Home Phone [...] Team Providers + +------+ + | Care Stamper Blocker Name | Role | Phone | [...] [address] | | | | | [place], | [place], | | | | | [place] [address] | [place] [address] | | | | | [phone] | [phone] | | | | | | | [...] | Monitor | | MD [address] [place] | Interrogation | | | | | [place], | (Primary Dx); | | | | | [place] [address] | Presence of | | | | | [phone] | permanent cardiac | | | | [...] Dx); | | | | | [place] [address] | Presence of | | | | | [phone] | permanent cardiac | | | | [...] W | | | | | | [place], | | | | | | [place] [address] | | | | | | [phone] | | | | | | | [...] Resulting Agency Comment | + + | [facility] | + + + +---------+ [...] Resulting Agency Comment | + + | [facility] | + + + +---------+ [...] Resulting Agency Comment | + + | [facility] | + + + +---------+ [...] Resulting Agency Comment | + + | [facility] | + + + +---------+ [...] Resulting Agency Comment | + + | [facility] | + + + +---------+ [...] Resulting Agency Comment | + + | [facility] | + + + +---------+ + [...] Resulting Agency Comment | + + | [facility] | + + + +---------+ [...] Comment | + + | [facility] | + + + +---------+ + + [...] Resulting Agency Comment | + + | [facility] | + + + +---------+ [...] Resulting Agency Comment | + + | [facility] | + + + +---------+ [...] Resulting Agency Comment | + + | [facility] | + + + +---------+ + + [...] Resulting Agency Comment | + + | [facility] | + + + +---------+ [...] Resulting Agency Comment | + + | [facility] | + + + +---------+ [...] | + + | [facility] | + + + +---------+ + + [...] Comment | + + | [facility] | + + + +---------+ + + [...] Comment | + + | [facility] | + + + +---------+ + + [...] Resulting Agency Comment | + + | [facility] | + + + +---------+ [...]
--- OUTSIDE RECORDS SUMMARY | ~2019-11-16 | XMS | Encounter Summary ---
Demographics + + + | Address | [address] | | | [place] [address] | + + + | Home Phone [...] Providers + +------+ + | Care Wind Energy Systems Installer Name | Role | Phone [...] | | | pain | [address] | [address] | | | | | Procedures | [place] | [place], | | | | | [place] Nuclear | [place] | [place] | | | | | Stress Test | [address] | [address] | | | | | (Vasodilator | Phone: | Phone: | | | | | ) CHG | [phone] | [phone] | | | | | MYOCARDIAL | Fax: | Fax: | | | | | SPECT | [phone] | [phone] | | | | | MULTIPLE | | | | | | | STUDIES | | | +--------+--------+ + + + + Encounter Details +--------+ + + + + | Date | Type | Department | Care Team | Description | +--------+ + + + + | 12/06/ | Hospital | [facility] | Geri Angel, | Other chest pain | | 2013 | Encounter | MED CTR XRAY [address] | OUTREACH REPRESENTATIVE [address] | | | | | [place] [place] | [place] | | | | | [place] [address] | [address] | | | | | [phone] | | | +--------+ + + + [...] + + + +---------+ + + | [place]-3 Fatty | CAPS, one capsule by | [...] Dx); | | | | | [place] [address] | Presence of | | | | | [phone] | permanent cardiac | | | | [...] | Monitor | | MD [address] | Interrogation | | | | | [place], | (Primary Dx); | | | | | [place] [address] | Presence of | | | | | [phone] | permanent cardiac | | | | [...] | | | | | | [place] [address] | | | | | | [phone] | | | | | | | [...] At | + + + | [facility] Diagnostic Imaging | [place] | | Department [address] [facility] | [facility] | | [ rep ct street[address]] [ rep ct [facility] | | st zip] Signed | - IMAGING | | | | | Patient Name: MOE GAY | | | Physician: JACKLYN : 1960 Age: 53 Sex: M Unit | | | #: [id number] Exam Date: 12/06/13 Location: | | | [facility] Report #: [id number] Page: | | | %(RAD)RES..mtdd.print.filter("pg") of %(RAD) | | | RES..mtdd.print.filter("tpg") | | | | | | Accession Number: [id number] | | | PERSANTINE SESTAMIBI STRESS TEST, [...] Transcribed Date/Time: 12/07/2013 08:18 | | | Blender / Cook: <<Signature on File>> | | | | | | Daljit Singletary MD [facility] FAS12/07/13 1321 <Electronically signed | | | by Daljit Singletary MD, FACC, FACP, FASE, FASNC> Daljit | | | MD Gemini [facility] ADELINE 01/16/14 0701 Blender / Cook: Jessica | | | [id number] PARISA Garcia | | + + + + + + + + | Performing | Address | City/State/Zipcode | Phone Number | | Organization | | | | + + + + + | [address] | [address] | [place] | [phone] | | [facility] | | [address] | | | - IMAGING | | | | + + + + + documented in this encounter Visit Diagnoses + + | Diagnosis | + + | Other chest pain | + + documented in this encounter
--- OUTSIDE RECORDS SUMMARY | ~2019-11-16 | XMS | Encounter Summary ---
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, | (Primary Dx); | | | | | [place] [address] | Presence of | | | | | [phone] | permanent cardiac | | | | [...] | Monitor | | MD [address] [place] | Interrogation | | | | | 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
--- OUTSIDE RECORDS SUMMARY | ~2019-11-16 | XMS | Encounter Summary ---
Demographics + + + | Address | [address] | | | [place] [address] | + + + | Home Phone [...] Providers + +------+ + | Care Traffic Investigator Name | Role | Phone | [...] | | CARDIOLOGY [address] | Janeen SCREEN OPERATOR [address] | | | | | [place], | [place], | | | | | [place] [address] | [place] [address] | | | | | [phone] | | | | | | | [...] Dx); | | | | | [place] [address] | Presence of | | | | | [phone] | permanent cardiac | | | | [...] 2018 | Monitor | | [address] [place] | Interrogation | | | | | [place], | (Primary Dx); | | | | | [place] [address] | Presence of | | | | | [phone] | permanent cardiac | | | | [...] | | | | | | [place] [address] | | | | | | [phone] | | | | | | | | +--------+ + + + + documented as of this encounter Visit Diagnoses Not on filedocumented in this encounter"
--- OUTSIDE RECORDS SUMMARY | ~2019-11-16 | XMS | Encounter Summary ---
Demographics + + + | Address | [address] | | | [place] [address] | + + + | Home Phone [...] + +------+ + | Care Chief Of Hospital Medicine Name | Role | Phone | + +------+ + | Kirk French MD | PCP | | + +------+ + Encounter Details +--------+---------+ + + + | Date | Type | Department | Care Team | Description | +--------+---------+ + + + | 01/05/ | Surgery | [facility] | Emmanuel Daniel MD | EGD | | 2019 | | MED CTR MP INTRA OP | [address], [place] | | | | | [address] | [address] [place], [place] | | | | | [place], [place] | [address] | | | | | [address] | | | | | | [phone] | | | +--------+---------+ + + + [...] air is pumped into the colon. It hSaheed to pass gas during the procedure. Biopsy, [...] for a few hours. Date Last Reviewed: 09/22/201619994854-8400 [employer]. [address] [place] [address]. All righ ts reserved. This information is [...] vomiting, or vomiting blood Date Last Reviewed: 05/22/201619994418-1306 [employer]. [address] [place] [address]. All righ ts reserved. This information is [...] You can't be awakened Date Last Reviewed: 09/08/201619999386-0059 [employer]. [address] [place] [address], [place] [address]. All righ ts reserved. This information is [...] + + + +---------+ + + | [place]-3 Fatty | CAPS, one capsule by | [...] | Monitor | | MD [address] | Interrogation | | | | | [place], | (Primary Dx); | | | | | [place] [address] | Presence of | | | | | [phone] | permanent cardiac | | | | [...] | Monitor | | MD [address] | Interrogation | | | | | [place], | (Primary Dx); | | | | | [place] [address] | Presence of | | | | | [phone] | permanent cardiac | | | | | | pacemaker; | | | | | | Sinoatrial node | | | | | | dysfunction (HCC) | | | | | | with symptomatic | | | | | | bradycardia | +--------+ + + + + | 01/01/ | Office | Cardiology | [place], | | | 2020 | Visit | | PARISA Vernon [address] | | | | | | [place], | | | | | | [place] [address] | | | | | | [phone] | | | | | | | [...] | REFERENCE LAB | | [place] [id number] Middle School Music Teacher: Miguel Galarza MD, Phone: | [facility] KINA | | [phone] | | + + + + + + + + | Performing | Address | City/State/Zipcode | Phone Number | | Organization | | | | + + + + + | REFERENCE LAB | [address] | [place] [address] | [phone] | | [facility] | Drive [...] [place] [address], | REFERENCE LAB | | [place], [place] [id number] Middle School Music Teacher: Miguel Galarza MD, Phone: | [facility] | | [phone] | | + + + + + + + + | Performing | Address | City/State/Zipcode | Phone Number | | Organization | | | | + + + + + | REFERENCE LAB | [address] [facility] | [place] [address] | [phone] | | [facility] | [address] [...] [address] | [place] | [phone] | | [facility] | | [address] | | | - LABORATORY | | [...] [address] | [place] | [phone] | | [facility] | | [address] | | | - LABORATORY | | [...] + + | Performing | Address | City/[facility] | Phone Number | | Organization | | | | + + + + + | [facility] | [address] | [place] | [phone] | | [facility] | | [address] | | | [...] + | [facility] | [address] | [place] | [phone] | | [facility] | | [address] | | | - LABORATORY | | [...] [address] | [place] | [phone] | | [facility] | | [address] | | | - LABORATORY | | [...] [address] | [place] | [phone] | | [facility] | | [address] | | | - LABORATORY | | | | + + + + + EGD (01/05/2019 8:36 AM PST) + + | Specimen | + + | | + + + + -+ | Narrative | Performed At | + + -+ | | [facility] | | GastroenterologyPatient Name: Moe Venegas Date: | PROVATION | | 01/05/2019 8:36 AMMRN: [id number] #: [id number] of : | | | 1960dmit Type: AmbulatoryAge: 58Room: [facility] 01Gender: MaleNote | | | Status: FinalizedAttending MD: Emmanuel Daniel , MDProcedure: | | | Upper GI endoscopyIndications: Diarrhea, Weight | | | lossProviders: Emmanuel Daniel MD, Heidi Gonzalezchfield, | | | RN, Kim Hicks, Transportation Project Manager, | | | Jarett Barakat MD [...] | | Imaging was performed using the [employer] Intelligent Chromo | | | Endoscopy (FICE) [...] Scope In: 8:43:57 AMScope Out: 8:49:50 AM [facility]. | | | [facility], [address] [place] [address] | | | [phone] | | |Recommendation: | | | - [...] |Scope Out: 8:49:50 AM | | | [facility]. [facility], [address] [place] [address] | | | [address] | | + + -+ + +---------+ [...] | PROVATION | | 01/05/2019 8:36 AMMRN: [id number] #: [id number] of : | | | 9Admit Type: AmbulatoryAge: 58Room: [facility] 01Gender: MaleNote | | | Status: FinalizedAttending MD: Emmanuel Daniel [facility]: | | | ColonoscopyIndications: Clinically significant diarrhea of | | | unexplained origin, Weight lossProviders: | | | Emmanuel Daniel MD, Heidi An RN, [place] | | | Fiorella Hicks, Transportation Project Manager, Jarett Quezada. | | | MD Roshni [...] | | 9:06:28 AM [facility], [address] [facility], | | | [place] [address] | | | - Discharge patient to [...] AM | | | [facility], [address] 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 BES:[facility]:C3NR GROSS DESCRIPTION: A. The | | | specimen, labeled "Laura, duodenal biopsy" is received in formalin | | | and consists of seven 0.1-0.5 cm lin fragments. Entirely submitted in | | | (A1). B. The specimen, labeled "Fentress, right colon" is received | | | in formalin and consists of six 0.2-0.3 cm lin fragments. Entirely | | | submitted in (B1). C. The specimen, labeled "Fentress, left colon" | | | is received in formalin and consists of six 0.2-0.3 cm lin-pink | | | fragments. Entirely submitted in (C1). am:AMB:portillo PERFORMING | | | LABORATORY: The technical component was performed by [employer] | | | [employer], [address] [place] [address] (Line Up Worker: | | | Kailey Stafford MD; CLIA# [id number]). Professional interpretation was | | | performed by [employer]), [facility], [facility] | | | [place] [address] (Line Up Worker: Ishaan | | | Anthony Dao; CLIA#: [id number]). Diagnostician: Ishaan Fitzpatrick | | | Sylwia [...] | | Starting [facility] 01/05/19 at 0924, | | | [...] | mL/hr | | | CONTINUOUS, Starting [facility] 01/05/19 | | AM PST | | | | | at 0800, Pre-op | | | | | | + +---------+ +---+-------+---+ + +---+ | | | + +---+ | ondansetron (ZOFRAN) injection | | | 4 mg 4 mg, Oral, EVERY 4 HOURS | | | PRN, Nausea, Vomiting, Starting | | | [facility] 01/05/19 at 0924, | | | [...]
--- OUTSIDE RECORDS SUMMARY | ~2019-11-16 | XMS | Encounter Summary ---
Demographics + + + | Address | [address] | | | [place] [address] | + + + | Home Phone [...] + +------+ + | Care Digital Marketing Apprentice Name | Role | Phone | + +------+ + PCP | Unavailable | + +------+ + Encounter Details +--------+ + + + + | Date | Type | Department | Care Team | Description | +--------+ + + + + | 06/25/ | [facility] | [facility] | Daljit Singletary, | | | 2008 | Encounter | MED CTR XRAY [address] | [address] | | | | | [place] | [place], | | | | | [place] [address] | [place] [address] | | | | | [phone] | [phone] | | | | | | | [...] Interrogation | | | | | [place], | (Primary Dx); | | | | | [place] [address] | Presence of | | | | | [phone] | permanent cardiac | | | | [...] 2018 | Monitor | | MD [facility] | Interrogation | | | | | [place], | (Primary Dx); | | | | | [place] [address] | Presence of | | | | | [phone] | permanent cardiac | | | | [...] W | | | | | | [place], | | | | | | [place] [address] | | | | | | [phone] | | | | | | | | +--------+ + + + + documented as of this encounter Visit Diagnoses Not on filedocumented in this encounter"
--- OUTSIDE RECORDS SUMMARY | ~2019-11-16 | XMS | Encounter Summary ---
Demographics + + + | Address | [address] | | | [place] [address] | + + + | Home Phone [...] Team Providers + +------+ + | Care Propellant Assembler Name | Role | Phone | [...] W | | | | | [place], | [place], | | | | | [place] [address] | [place] [address] | | | | | [phone] | [phone] | | | | | | | [...] Monitor | | MD [address] | Interrogation | | | | | [place], | (Primary Dx); | | | | | [place] [address] | Presence of | | | | | [phone] | permanent cardiac | | | | [...] Monitor | | MD [address] | Interrogation | | | | | [place], | (Primary Dx); | | | | | [place] [address] | Presence of | | | | | [phone] | permanent cardiac | | | | [...] | | | | | | [place] [address] | | | | | | [phone] | | | | | | | | +--------+ + + + + documented as of this encounter Visit Diagnoses Not on filedocumented in this encounter"
--- OUTSIDE RECORDS SUMMARY | ~2019-11-16 | XMS | Encounter Summary ---
Demographics + + + | Address | [address] | | | [place] [address] | + + + | Home Phone [...] Providers + +------+ + | Care Fishing Rod Trimmer Name | Role | Phone | [...] + + | 08/17/ | Office | [facility] | Michael Amanda, | Testosterone | | 2012 | Visit | [facility] | DO [address] | deficiency (Primary | | | | [address] | [place] | Dx); Hypoglycemia; | | | | [place] | [address] | Herpes | | | | [address] | | | | | | [phone] | | | +--------+---------+ + + + [...] lowering his testosterone levels. He seen at [facility]. He was prescribed OxyContin and Dilaudid. The [...] erectile dy sfunction. He was seen at [facility] yesterday and they prescribed him testostero ne cypionate injections. He's not sure when they wanted him to come back for labs. He has a followup appointment with [facility] in one month. Patient complains of history [...] (hypertension); Hypercholesterolemia; Bipolar 1 disorder; Insomnia; Block Engraver jennifer neck pain; Depression; Hyperlipidemia; BIPOLAR DISORDER [...] per orders. This note is dictated using SoFits[employer]Me voice recognition software. This note was dictated [...] Interrogation | | | | | [place], | (Primary Dx); | | | | | [place] [address] | Presence of | | | | | [phone] | permanent cardiac | | | | [...] | Monitor | | MD [address] | Interrogation | | | | | [place], | (Primary Dx); | | | | | [place] [address] | Presence of | | | | | [phone] | permanent cardiac | | | | [...] W | | | | | | [place], | | | | | | [place] [address] | | | | | | [phone] | | | | | | | [...]
--- OUTSIDE RECORDS SUMMARY | ~2019-11-16 | XMS | Encounter Summary ---
Demographics + + + | Address | [address] [place] [address] | | | [place] [address] | + + + | Home Phone [...] [place] | | | | | [address] | | + + + + + Care Team Providers + +------+ + | Care Junior Technical Writer Name | Role | Phone | [...]
--- OUTSIDE RECORDS SUMMARY | ~2019-11-16 | XMS | Encounter Summary ---
Demographics + + + | Address | [address] | | | [place] [address] | + + + | Home Phone [...] Providers + +------+ + | Care Financial Wellness Coach Name | Role | Phone | [...] Provider Unknown | | | | | [place], [place] | [phone] | | | | | [address] | | | | | | [phone] | | | +--------+ + + + [...] | | | | | | | #[id number], exp 07/2016 | | | | | [...] | Interrogation | | | | | [facility] ([facility]x); | | | | | [place] [address] | Presence of | | | | | [phone] | permanent cardiac | | | | [...] | 2018 | Monitor | | [address] | Interrogation | | | | | [place], | (Primary Dx); | | | | | [place] [address] | Presence of | | | | | [phone] | permanent cardiac | | | | [...] W | | | | | | [place], | | | | | | [place] [address] | | | | | | [phone] | | | | | | | [...]
--- OUTSIDE RECORDS SUMMARY | ~2019-11-16 | XMS | Encounter Summary ---
Demographics + + + | Address | [address] | | | [place] [address] | + + + | Home Phone [...] + +------+ + | Care Public Health Internship Name | Role | Phone | + +------+ + | Michael Amanda DO | PCP | | + +------+ + Encounter Details +--------+ + + + + | Date | Type | Department | Care Team | Description | +--------+ + + + + | 11/03/ | Emergency | [facility] | Eliel Calzada, | Palpitations; | | 2013 - | | MEDICAL CENTER | MD Chiquis ORO | Atypical chest pain | | | | EMERGENCY CENTER | [facility] [place] | | | 11/04/ | | [address] | [address] | | | 2013 | | [place], [place] | | | | | | [address] | | | | | | [phone] | | | +--------+ + + + [...] + + + +---------+ + + | Hecla-3 Fatty | CAPS, one capsule by | [...] Dx); | | | | | [place] [address] | Presence of | | | | | [phone] | permanent cardiac | | | | [...] 2019 | Monitor | | MD [address] | Interrogation | | | | | [place], | (Primary Dx); | | | | | [place] [address] | Presence of | | | | | [phone] | permanent cardiac | | | | [...] | | | | | | [place], | | | | | | [place] [address] | | | | | | [phone] | | | | | | | [...] Kevin, Rad Conversion - 07/07/2019 10:30 PM FRANCY LEVINE CHEST 2 VIEW FRONTAL | | AND VZWEFGF0211/03/2014 11:56 PM History: 54 years. Male. Acute [...] EXTERNAL | | | | performed at [facility];888 | | LAB | | | | [address];[place] | | | | | | [address] | | | | + + + + + -+ | RED CELL | 4.97Comment: Testing | 4.20 - 5.70 | EXTERNAL | | | COUNT | performed at [facility];888 | M/uL | LAB | | | | [address];[place] | | | | | | [address] | | | | + + + + + -+ | Hgb | 16.8Comment: Testing | 13.2 - 17.0 | EXTERNAL | | | | performed at [facility];888 | g/dL | LAB | | | | [address];[place] | | | | | | [address] | | | | + + + + + -+ | Hematocrit, | 48.2Comment: Testing | 39.0 - 50.0 % | EXTERNAL | | | POC | performed at [facility];[address] | | LAB | | | | [address];[place] | | | | | | [address] | | | | + + + + + -+ | MCV | 97.1Comment: Testing | 80.0 - 100.0 fl | EXTERNAL | | | | performed at [facility];[address] | | LAB | | | | [address];[place] | | | | | | [address] | | | | + + + + + -+ | MCH | 33.9Comment: Testing | 27.0 - 34.0 pg | EXTERNAL | | | | performed at [facility];[address] | | LAB | | | | [address];[place] | | | | | | [address] | | | | + + + + + -+ | MCHC | 34.9Comment: Testing | 32.0 - 35.5 | EXTERNAL | | | | performed at [facility];888 | g/dL | LAB | | | | [address];[place] | | | | | | [address] | | | | + + + + + -+ | RDW-CV | 42.4Comment: Testing | 37 - 53 fl | EXTERNAL | | | | performed at [facility];888 | | LAB | | | | [address];[place] | | | | | | [address] | | | | + + + + + -+ | Platelet | 143 (L)Comment: Testing | 150 - 400 K/uL | EXTERNAL | | | Count | performed at [facility];888 | | LAB | | | Plasma | [address];[place] | | | | | | [address] | | | | + + + + + -+ | MPV | 9.0Comment: Testing | fl | EXTERNAL | | | | performed at [facility];888 | | LAB | | | | [address];[place] | | | | | | [address] | | | | + + + + + -+ | Differentia | AUTOMATEDComment: | | EXTERNAL | | | l Type | Testing performed at | | LAB | | | | [facility];[address] | | | [address];[place] [address] | | | | + + + + + -+ | % Segmented | 61.6Comment: Testing | % | EXTERNAL | | | | performed at [facility];888 | | LAB | | | Neutrophils | [address];[place] | | | | | | [address] | | | | + + + + + -+ | % | 27.8Comment: Testing | % | EXTERNAL | | | Lymphocytes | performed at [facility];888 | | LAB | | | | [address];[place] | | | | | | [address] | | | | + + + + + -+ | % Monocytes | 8.7Comment: Testing | % | EXTERNAL | | | | performed at [facility];[address] | | LAB | | | | [address];[place] | | | | | | [address] | | | | + + + + + -+ | % | 0.8Comment: Testing | % | EXTERNAL | | | Eosinophils | performed at [facility];[address] | | LAB | | | | [address];[place] | | | | | | [address] | | | | + + + + + -+ | % Basophils | 1.1Comment: Testing | % | EXTERNAL | | | | performed at [facility];[address] | | LAB | | | | [address];[place] | | | | | | [address] | | | | + + + + + -+ | Absolute | 5.4Comment: Testing | 1.9 - 7.4 K/uL | EXTERNAL | | | Segmented | performed at [facility];888 | | LAB | | | Neutrophils | [address];[place] | | | | | | [address] | | | | + + + + + -+ | Absolute | 2.4Comment: Testing | 1.0 - 3.9 K/uL | EXTERNAL | | | Lymphocytes | performed at [facility];[address] | | LAB | | | | [address];[place] | | | | | | [address] | | | | + + + + + -+ | Absolute | 0.8Comment: Testing | 0 - 0.8 K/uL | EXTERNAL | | | Monocytes | performed at [facility];888 | | LAB | | | | [address];[place] | | | | | | [address] | | | | + + + + + -+ | Absolute | 0.1Comment: Testing | 0 - 0.5 K/uL | EXTERNAL | | | Eosinophils | performed at [facility];888 | | LAB | | | | [address];[place] | | | | | | [address] | | | | + + + + + -+ | Absolute | 0.1Comment: Testing | 0 - 0.1 K/uL | EXTERNAL | | | Basophils | performed at [facility];888 | | LAB | | | | [address];[place] | | | | | | [address] | | | | + + + + + -+ | RBC | SLIDE SCANNED, AGREES | | EXTERNAL | | | Morphology | WITH AUTOMATED | | LAB | | | | RESULTS.Comment: Testing | | | | | | performed at [facility];888 | | | | | | [address];[place] | | | | | | [address] | | | | + + + + + -+ | Na | 140Comment: Testing | 135 - 143 | EXTERNAL | | | | performed at [facility];888 | mmol/L | LAB | | | | [address];[place] | | | | | | [address] | | | | + + + + + -+ | K | 3.9Comment: Testing | 3.5 - 4.9 | EXTERNAL | | | | performed at [facility];888 | mmol/L | LAB | | | | [address];[place] | | | | | | [address] | | | | + + + + + -+ | Cl | 107Comment: Testing | 99 - 109 mmol/L | EXTERNAL | | | | performed at [facility];[address] | | LAB | | | | [address];[place] | | | | | | [address] | | | | + + + + + -+ | CO2 | 28Comment: Testing | 23 - 32 mmol/L | EXTERNAL | | | | performed at [facility];888 | | LAB | | | | [address];[place] | | | | | | [address] | | | | + + + + + -+ | Anion Gap | 9Comment: Testing | 5 - 20 mmol/L | EXTERNAL | | | | performed at [facility];888 | | LAB | | | | [address];[place] | | | | | | [address] | | | | + + + + + -+ | Glucose, | 97Comment: Testing | 65 - 99 mg/dL | EXTERNAL | | | Fasting | performed at [facility];[address] | | LAB | | | | [address];[place] | | | | | | [address] | | | | + + + + + -+ | BUN | 14Comment: Testing | 8 - 25 mg/dL | EXTERNAL | | | | performed at [facility];888 | | LAB | | | | [address];[place] | | | | | | [address] | | | | + + + + + -+ | Creatinine | 0.98Comment: Testing | 0.70 - 1.30 | EXTERNAL | | | | performed at [facility];888 | mg/dL | LAB | | | | [address];[place] | | | | | | [address] | | | | + + + + + -+ | BUN/Creatin | 14Comment: Testing | | EXTERNAL | | | ine Ratio | performed at [facility];[address] | | LAB | | | | [address];[place] | | | | | | [address] | | | | + + + + + -+ | Calcium | 8.8Comment: Testing | 8.5 - 10.2 | EXTERNAL | | | | performed at [facility];888 | mg/dL | LAB | | | | [address];[place] | | | | | | [address] | | | | + + + + + -+ | Protein, | 6.9Comment: Testing | 6.3 - 8.2 g/dL | EXTERNAL | | | Total | performed at [facility];[address] | | LAB | | | | [address];[place] | | | | | | [address] | | | | + + + + + -+ | Albumin | 3.7Comment: Testing | 3.6 - 5.0 g/dL | EXTERNAL | | | | performed at [facility];[address] | | LAB | | | | [address] | | | | | | [address] | | | | + + + + + -+ | Globulin | 3.2Comment: Testing | 1.3 - 4.9 g/dL | EXTERNAL | | | | performed at [facility];[address] | | LAB | | | | [address];[place] | | | | | | [address] | | | | + + + + + -+ | A/G Ratio | 1.2Comment: Testing | 1.0 - 2.4 | EXTERNAL | | | | performed at [facility];888 | | LAB | | | | [address];[place] | | | | | | [address] | | | | + + + + + -+ | Bilirubin | 0.9Comment: Testing | 0.1 - 1.5 mg/dL | EXTERNAL | | | Total | performed at [facility];[address] | | LAB | | | | [address];[place] | | | | | | [address] | | | | + + + + + -+ | ALP, | 60Comment: Testing | 35 - 115 U/L | EXTERNAL | | | External | performed at [facility];888 | | LAB | | | | [address];[place] | | | | | | [address] | | | | + + + + + -+ | AST | 22Comment: Testing | 10 - 45 U/L | EXTERNAL | | | | performed at [facility];888 | | LAB | | | | [address];[place] | | | | | | [address] | | | | + + + + + -+ | ALT | 37Comment: Testing | 10 - 65 U/L | EXTERNAL | | | | performed at [facility];[address] | | LAB | | | | [address];[place] | | | | | | [address] | | | | + + + [...] | | | | | | at [facility];[address] | | | | | [address];[place] [address] | | | | + + + + + -+ | CK, Total | 103Comment: Testing | 55 - 400 U/L | EXTERNAL | | | | performed at [facility];[address] | | LAB | | | | [address];[place] | | | | | | [address] | | | | + + + [...] | | | | | performed at [facility];[address] | | | | | | [address];[place] | | | | | | [address] | | | | + + + + + -+ | aPTT, | 26Comment: Testing | 23 - 32 seconds | EXTERNAL | | | Patient | performed at [facility];[address] | | LAB | | | | [address];[place] | | | | | | [address] | | | | + + + + + -+ | CK-MB | 2.9Comment: Testing | 0.5 - 3.6 ng/mL | EXTERNAL | | | | performed at [facility];[address] | | LAB | | | | [address];[place] | | | | | | [address] | | | | + + + [...] EXTERNAL | | | | performed at [facility];888 | uIU/mL | LAB | | | | [address];[place] | | | | | | [address] | | | | + + + [...] EXTERNAL | | | | performed at [facility];[address] | | LAB | | | | [address];[place], [place] | | | | | | [address] | | | | + + + [...] EXTERNAL | | | | performed at [facility] | | LAB | | | | [address];[place] | | | | | | [address] | | | | + + + [...] | | | | | | editorial writer Michelle Butcher | | | | | | (29) on 11/04/2014 | | | | | | 6:28:13 AM | | | | + + + + + + + + | Specimen | + + | | + + + + + | Narrative | Performed At | + + + | Historically converted procedure from [facility] Epic environment | EXTERNAL LAB | + [...]
--- OUTSIDE RECORDS SUMMARY | ~2019-11-16 | XMS | Encounter Summary ---
Demographics + + + | Address | [address] [place] [address] | | | [place] [address] | + + + | Home Phone [...] [place] | | | | | [address] | | + + + + + [...] 2019 | | Center at [facility] [address] | MD [address] | | | | | [address] | [place], [place] | | | | | Mailcode: Center | [address] | | | | | [facility] and | [phone] | | | | | [facility] | | | | | | [place], [place] | | | | | | [address] | | | | | | [phone] | | | +--------+ + + + [...]
--- OUTSIDE RECORDS SUMMARY | ~2019-11-16 | XMS | Encounter Summary ---
Demographics + + + | Address | [address] | | | [place] [address] | + + + | Home Phone [...] Team Providers + +------+ + | Care Rrt Name | Role | Phone | + [...] + + | 09/13/ | Office | [facility] | Bahman Gant MD | Other dysphagia | | 2013 | Visit | OTOLARYNGOLOGY [address] | [address] [place] | (Primary Dx) | | | | [address] | [address] [place], | | | | | [place], [place] | [place] [address] | | | | | [address] | [phone] | | | | | [phone] | | | +--------+---------+ + + + [...] MD - 09/13/2013 5:46 PM PDTSee dictation #[id number] signed by Joseph Gant MD at 09/13/2013 5:52 PM Bahman Lamb MD - 09/13/2013 12:00 AM PDT ENT AND AUDIOLOGY [address] [facility] [address] [place] [address] FAX: [phone] OFFICE VISIT The patient gives a history [...] Gant MD GM / MS JOB #: [id number] signed by Bahman Gant MD at 09/14/2013 12:08 PM PDTdocumente d in this encounter Plan of Treatment +--------+ + + + + | Date | Type | Specialty | Care Team | Description | +--------+ + + + + | 11/20/ | Implant | Cardiology | Daljit Singletary, | Remote Device | | 2018 | Monitor | | [address] | Interrogation | | | | | [place], | (Primary Dx); | | | | | [place] [address] | Presence of | | | | | [phone] | permanent cardiac | | | | [...] | 2018 | Monitor | | [address] | Interrogation | | | | | [place], | (Primary Dx); | | | | | [place] [address] | Presence of | | | | | [phone] | permanent cardiac | | | | [...] W | | | | | | [place], | | | | | | [place] [address] | | | | | | [phone] | | | | | | | [...]
--- OUTSIDE RECORDS SUMMARY | ~2019-11-16 | XMS | Encounter Summary ---
Demographics + + + | Address | [address] | | | [place] [address] | + + + | Home Phone [...] Providers + +------+ + | Care Mailroom Associate Name | Role | Phone | [...] 2016 | | CARDIOLOGY [address] | GREETING CARD MAKER [address] | | | | | [place], | [place], [place] | | | | | [place] [address] | [address] | | | | | [phone] | | | +--------+--------+ + + + [...] Interrogation | | | | | [place], | (Primary Dx); | | | | | [place] [address] | Presence of | | | | | [phone] | permanent cardiac | | | | [...] Interrogation | | | | | [place], | (Primary Dx); | | | | | [place] [address] | Presence of | | | | | [phone] | permanent cardiac | | | | [...] [place], | | | | | | [place] [address] | | | | | | [phone] | | | | | | | | +--------+ + + + + documented as of this encounter Visit Diagnoses Not on filedocumented in this encounter"
--- OUTSIDE RECORDS SUMMARY | ~2019-11-16 | XMS | Encounter Summary ---
Demographics + + + | Address | [address] | | | [place] [address] | + + + | Home Phone [...] Providers + +------+ + | Care Supervisor Telephone Information Name | Role | Phone | [...] | aortic aneurysm | | | | [place], | [place], | (HCC) (Primary Dx); | | | | [place] [address] | [place] [address] | Coronary artery | | | | [phone] | [phone] | disease involving | | | | [...] of non-critical coronary artery d isease involving [place] coronary artery of cap[place] heart without angina pectoris, essential h ypertension, [...] start Losartan 25 mg once every day, [facility] blood pressure log, and follow up in 3 months. Since that time, he went to the ER in [facility] with chest pain at the [...] 3RD DOSE, CALL 911 100 tablet 3 Effort-3 Fatty Acids (SALMON OIL-1000 PO) CAPS, one [...] was found Confirmed by SYDNI SINGLETARY MD ([id number]) on 06/23/2016 2:08:15 PM LAB RESULTS reviewed [...] He is in class I of the [place] 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 On physical examination there are no signs of fl uid overload. 2. Non-critical Coronary artery disease involving cap[place] band coronary a rtery of [place] heart without angina pectoris: A. Normal exercise [...] to go back in 3 days to [place] for an attempt of ablation under general [...] greater than 30 minute waiting period. A "chair" of ablation lesion was [...] is a normal stable device function. Estimated ubigratei ng battery longevity is 5 years.. 5. [...] this chart may have been created with [employer] voice recognition software. Occasi onal wrong-word or [...] Interrogation | | | | | [place], | (Primary Dx); | | | | | [place] [address] | Presence of | | | | | [phone] | permanent cardiac | | | | [...] Interrogation | | | | | [place], | (Primary Dx); | | | | | [place] [address] | Presence of | | | | | [phone] | permanent cardiac | | | | [...] W | | | | | | [place], | | | | | | [place] [address] | | | | | | [phone] | | | | | | | [...]
--- OUTSIDE RECORDS SUMMARY | ~2019-11-16 | XMS | Encounter Summary ---
Demographics + + + | Address | [address] | | | [place] [address] | + + + | Home Phone [...] Providers + +------+ + | Care Manager Welding Name | Role | Phone | + [...] [address] | | | | [place], | [place], | | | | | [place] [address] | [place] [address] | | | | | [phone] | [phone] | | | | | | | [...] | Monitor | | MD [address] | Interrogation | | | | | [place], | (Primary Dx); | | | | | [place] [address] | Presence of | | | | | [phone] | permanent cardiac | | | | [...] | Monitor | | MD [address] | Interrogation | | | | | [place], | (Primary Dx); | | | | | [place] [address] | Presence of | | | | | [phone] | permanent cardiac | | | | [...] | | | | | | [place] [address] | | | | | | [phone] | | | | | | | | +--------+ + + + + documented as of this encounter Visit Diagnoses Not on filedocumented in this encounter"
--- OUTSIDE RECORDS SUMMARY | ~2019-11-16 | XMS | Encounter Summary ---
Demographics + + + | Address | [address] | | | [place] [address] | + + + | Home Phone [...] Team Providers + +------+ + | Care Hematologist Name | Role | Phone | + [...] CASE | RN | (referral from [facility]) | | | | MANAGEMENT [address] | | | | | [place], | | | | | | [place] [address] | | | | | | [phone] | | | +--------+ + + + [...] | | 2019 | Monitor | | [place] [address] [facility] | Interrogation | | | | | [facility], | (Primary Dx); | | | | | [place] [address] | Presence of | | | | | [phone] | permanent cardiac | | | | [...] Dx); | | | | | [place] [address] | Presence of | | | | | [phone] | permanent cardiac | | | | [...] [address] | | | | | | [place], | | | | | | [place] [address] | | | | | | [phone] | | | | | | | | +--------+ + + + + documented as of this encounter Visit Diagnoses Not on filedocumented in this encounter"
--- OUTSIDE RECORDS SUMMARY | ~2019-11-16 | XMS | Encounter Summary ---
Demographics + + + | Address | [address] | | | [place] [address] | + + + | Home Phone [...] Team Providers + +------+ + | Care Ortho Nurse Name | Role | Phone | [...] + + | 12/09/ | Telephone | [facility] | Emmanuel Daniel MD | Appointment (EGD, | | 2017 | | GASTROENTEROLOGY | [address], [place] | colon Rescheduled to | | | | [address] [place] | [address] [place] | December 24 due to | | | | [address] [place] | [address] | illness) | | | | [address] | | | | | | [phone] | | | +--------+ + + + [...] Interrogation | | | | | [facility], | (Primary Dx); | | | | | [place] [address] | Presence of | | | | | [phone] | permanent cardiac | | | | [...] Interrogation | | | | | [facility], | (Primary Dx); | | | | | [place] [address] | Presence of | | | | | [phone] | permanent cardiac | | | | [...] | | | | | | [place] [address] | | | | | | [phone] | | | | | | | | +--------+ + + + + documented as of this encounter Visit Diagnoses Not on filedocumented in this encounter"
--- OUTSIDE RECORDS SUMMARY | ~2019-11-16 | XMS | Encounter Summary ---
Demographics + + + | Address | [address] [place] [address] | | | [place] [address] | + + + | Home Phone [...] [place] | | | | | [address] | | + + + + + Care Team Providers + +------+ + | Care Private Security Guard Name | Role | Phone | [...]
--- OUTSIDE RECORDS SUMMARY | ~2019-11-16 | XMS | Encounter Summary ---
Demographics + + + | Address | [address] | | | [place] [address] | + + + | Home Phone [...] Team Providers + +------+ + | Care Bike Mechanic Name | Role | Phone [...] [address] | | | | | | [place], [place] | (Fax) | | | | | [address] | | | | | | [phone] | | | +--------+ + + + [...] 2019 | Monitor | | [address] | Interrogation | | | | | [place], | (Primary Dx); | | | | | [place] [address] | Presence of | | | | | [phone] | permanent cardiac | | | | [...] Dx); | | | | | [place] [address] | Presence of | | | | | [phone] | permanent cardiac | | | | [...] W | | | | | | [place], | | | | | | [place] [address] | | | | | | [phone] | | | | | | | | +--------+ + + + + documented as of this encounter Visit Diagnoses Not on filedocumented in this encounter"
--- OUTSIDE RECORDS SUMMARY | ~2019-11-16 | XMS | Encounter Summary ---
Demographics + + + | Address | [address] | | | [place] [address] | + + + | Home Phone [...] Team Providers + +------+ + | Care Mineral Mixer Name | Role | Phone | [...] [address] | | | | | [place], | [place], | | | | | [place] [address] | [place] [address] | | | | | [phone] | [phone] | | | | | | | [...] | Monitor | | MD [address] | Interrogation | | | | | [facility], | (Primary Dx); | | | | | [place] [address] | Presence of | | | | | [phone] | permanent cardiac | | | | [...] Interrogation | | | | | [facility] [place], | (Primary Dx); | | | | | [place] [address] | Presence of | | | | | [phone] | permanent cardiac | | | | [...] W | | | | | | [place], | | | | | | [place] [address] | | | | | | [phone] | | | | | | | | +--------+ + + + + documented as of this encounter Visit Diagnoses Not on filedocumented in this encounter"
--- OUTSIDE RECORDS SUMMARY | ~2019-11-16 | XMS | Encounter Summary ---
Demographics + + + | Address | [address] | | | [place] [address] | + + + | Home Phone [...] Team Providers + +------+ + | Care Crowd Controller Name | Role | Phone | + +------+ + | Kirk French MD | PCP | | + +------+ + Encounter Details +--------+ + + + + | Date | Type | Department | Care Team | Description | +--------+ + + + + | 11/16/ | Hospital | [facility] | Kirk French | Aneurysm (HCC) | | 2017 | Encounter | MED CTR ULTRASOUND | D, MD [address] | | | | | [address] [place] | [address] | | | | | [place], [place] | [place] [address] | | | | | [address] | [phone] | | | | | [phone] | | | | | | | [...] + + + +---------+ + + | [place]-3 Fatty | CAPS, one capsule by | [...] | Monitor | | MD [address] | Interrogation | | | | | [facility] [place], | (Primary Dx); | | | | | [place] [address] | Presence of | | | | | [phone] | permanent cardiac | | | | [...] Interrogation | | | | | [facility], | (Primary Dx); | | | | | [place] [address] | Presence of | | | | | [phone] | permanent cardiac | | | | [...] W | | | | | | [place], | | | | | | [place] [address] | | | | | | [phone] | | | | | | | [...]
--- OUTSIDE RECORDS SUMMARY | ~2019-11-16 | XMS | Encounter Summary ---
Demographics + + + | Address | [address] | | | [place] [address] | + + + | Home Phone [...] Providers + +------+ + | Care Heavy Cleaner Name | Role | Phone | [...] | | | | [place] | [address] | | | | | [address] | | | | | | [phone] | | | +--------+ + + + [...] Interrogation | | | | | [place], | (Primary Dx); | | | | | [place] [address] | Presence of | | | | | [phone] | permanent cardiac | | | | [...] Interrogation | | | | | [place], | (Primary Dx); | | | | | [place] [address] | Presence of | | | | | [phone] | permanent cardiac | | | | [...] W | | | | | | [place], | | | | | | [place] [address] | | | | | | [phone] | | | | | | | | +--------+ + + + + documented as of this encounter Visit Diagnoses Not on filedocumented in this encounter"
--- OUTSIDE RECORDS SUMMARY | ~2019-11-16 | XMS | Encounter Summary ---
Demographics + + + | Address | [address] | | | [place] [address] | + + + | Home Phone [...] Providers + +------+ + | Care Inventory Auditor Name | Role | Phone | [...] | Emmanuel E, MD | [address] | | | | | unspecified | [address] | [place], | | | | | type | [place], [place] | [place] | | | | | Abdominal | [address] [place] | [address] | | | | | cramping | [place], [place] | Phone: | | | | | Generalized | [address] | [phone] | | | | | abdominal | Phone: | Fax: | | | | | pain | [phone] | [phone] | | | | | Procedures | Fax: | | | | | | CT Abdomen | [phone] | | | | | | Pelvis [...] | | GASTROENTEROLOGY | [address] [place], [place] | (stomach cramps and | | | | [address] [place] | [address] [place], [place] | liquid stool) | | | | [address] [place], [place] | [address] | | | | | [address] | | | | | | [phone] | | | +--------+ + + + [...] Dx); | | | | | [place] [address] | Presence of | | | | | [phone] | permanent cardiac | | | | [...] | 2018 | Monitor | | [address] [place] | Interrogation | | | | | [place], | (Primary Dx); | | | | | [place] [address] | Presence of | | | | | [phone] | permanent cardiac | | | | [...] | | | | | | [place], | | | | | | [place] [address] | | | | | | [phone] | | | | | | | [...]
--- OUTSIDE RECORDS SUMMARY | ~2019-11-16 | XMS | Encounter Summary ---
Demographics + + + | Address | [address] | | | [place] [address] | + + + | Home Phone [...] Providers + +------+ + | Care Rn Labor Delivery Name | Role | Phone | + [...] loss | [address] | [address], | | | | | Anxiety | [address] [place] | [place] [address] | | | | | disorder, | [address] | [place], | | | | | unspecified | [place], [place] | [place] [address] | | | | | Chronic | [address] | Phone: | | | | | pain | Phone: | [phone] | | | | | syndrome | [phone] | Fax: | | | | | Procedures | Fax: | [phone] | | | | | office visit | [phone] | | +--------+--------+ + + + + Encounter Details +--------+---------+ + + + | Date | Type | Department | Care Team | Description | +--------+---------+ + + + | 12/26/ | Office | [facility] | Emmanuel Daniel MD | Functional diarrhea | | 2019 | Visit | GASTROENTEROLOGY | [address], [place] | (Primary Dx); | | | | [address] [place] | [address] [place], [place] | Gastrointestinal | | | | [address] [place], [place] | [address] | hemorrhage | | | | [address] | | associated with | | | | [phone] | | anorectal source; | | | [...] Dx); | | | | | [place] [address] | Presence of | | | | | [phone] | permanent cardiac | | | | [...] 2018 | Monitor | | MD [address] | Interrogation | | | | | [facility] [place], | (Primary Dx); | | | | | [place] [address] | Presence of | | | | | [phone] | permanent cardiac | | | | [...] W | | | | | | [address] [place], | | | | | | [place] [address] | | | | | [phone] | | | | | | | [...]
--- OUTSIDE RECORDS SUMMARY | ~2019-11-16 | XMS | Encounter Summary ---
Demographics + + + | Address | [address] | | | [place] [address] | + + + | Home Phone [...] Providers + +------+ + | Care Refinery Process Engineer Name | Role | Phone | [...] | | | | CENTER [address] | [place], [place] | (Primary Dx) | | | | [place], [place] | [address] | | | | | [address] | | | | | | [phone] | | | +--------+ + + + [...] | Monitor | | MD [address] | Interrogation | | | | | [place], | (Primary Dx); | | | | | [place] [address] | Presence of | | | | | [phone] | permanent cardiac | | | | [...] | Monitor | | MD [address] | Interrogation | | | | | [place], | (Primary Dx); | | | | | [place] [address] | Presence of | | | | | [phone] | permanent cardiac | | | | [...] W | | | | | | [place], | | | | | | [place] [address] | | | | | | [phone] | | | | | | | [...] | 0.84 | 0.60 - 1.30 | [facility] | | | | | mg/dL | [facility] | | | | | | MEDICAL | | | | | | CENTER - | | | | | | LABORATORY | | + + + + + + | eGFR if not | >60Comment: GLOMERULAR | >=60 | [facility] | | | | FILTRATION | mL/min/1.73m2 | [facility] | | | MACANESE | RATE,ESTIMATED | | MEDICAL | | | | mL/min/1.44u6Wjkp than | | CENTER - | | [...] [address] | [place] | [phone] | | [facility] | | [address] | | | - LABORATORY | | [...] Brown Results In - 01/24/2017 1:16 PM [facility] PORTABLE CHEST X-RAY: 01/24/2017 12:28 [...] | | | | | | ANGELA MARADIAAG MD ([id number]) | | | | | | on [...] | | | | | | [employer] | | | | | [...] [address] | [place] | [phone] | | [facility] | | [address] | | | - LABORATORY | | [...] | 0.00 | 0.00 - 0.10 | [facility] | [...] [address] | [place] | [phone] | | [facility] | | [address] | | | - LABORATORY | | [...]
--- OUTSIDE RECORDS SUMMARY | ~2019-11-16 | XMS | Encounter Summary ---
Demographics + + + | Address | [address] | | | [place] [address] | + + + | Home Phone [...] Team Providers + +------+ + | Care Lube Attendant Name | Role | Phone | + +------+ + | Kirk French MD | PCP | | + +------+ + Encounter Details +--------+ + + + + | Date | Type | Department | Care Team | Description | +--------+ + + + + | 01/05/ | Anesthesia | [facility] | Jarett Barakat | | | 2019 | Event | MED CTR MP INTRA OP | P, MD [address] | | | | | [address] | [address] [place], [place] | | | | | [place], [place] | [address] | | | | | [address] | [phone] | | | | | [phone] | | | +--------+ + + + [...] explained and consent obtained. Patient transported to [facility], | | | 4 | | Monitors [...] | 01/05/19950 by | | eral | tglu-wgo-slefkm catheter system; | Kasie Natarajan RN | [...] Dx); | | | | | [place] [address] | Presence of | | | | | [phone] | permanent cardiac | | | | [...] Interrogation | | | | | [place], | (Primary Dx); | | | | | [place] [address] | Presence of | | | | | [phone] | permanent cardiac | | | | [...] | | | | | | [place] [address] | | | | | | [phone] | | | | | | | [...]
--- OUTSIDE RECORDS SUMMARY | ~2019-11-16 | XMS | Encounter Summary ---
Demographics + + + | Address | [address] | | | [place] [address] | + + + | Home Phone [...] Providers + +------+ + | Care Glass Polisher Name | Role | Phone | + +------+ + PCP | Unavailable | + +------+ + Encounter Details +--------+ + + + + | Date | Type | Department | Care Team | Description | +--------+ + + + + | 09/24/ | [facility] | [facility] | Evan Ganadra MD | | | 2005 | Encounter | MED CTR XRAY [address] | [address] [facility] | | | | | [place] | [place] | | | | | [place] [address] | [address] | | | | | [phone] | | | +--------+ + + + [...] Dx); | | | | | [place] [address] | Presence of | | | | | [phone] | permanent cardiac | | | | [...] Dx); | | | | | [place] [address] | Presence of | | | | | [phone] | permanent cardiac | | | | [...] | | | | | | [place] [address] | | | | | | [phone] | | | | | | | | +--------+ + + + + documented as of this encounter Visit Diagnoses Not on filedocumented in this encounter"
--- OUTSIDE RECORDS SUMMARY | ~2019-11-16 | XMS | Encounter Summary ---
Demographics + + + | Address | [address] | | | [place] [address] | + + + | Home Phone [...] Team Providers + +------+ + | Care Organ Tuner Electronic Name | Role | Phone | [...] fasting labs prior | | | | [place], | [place], | to appt) | | | | [place] [address] | [place] [address] | | | | | [phone] | [phone] | | | | | | | [...] | Monitor | | MD [address] [place] | Interrogation | | | | | [place], | (Primary Dx); | | | | | [place] [address] | Presence of | | | | | [phone] | permanent cardiac | | | | [...] | Monitor | | MD [address] [place] | Interrogation | | | | | [place], | (Primary Dx); | | | | | [place] [address] | Presence of | | | | | [phone] | permanent cardiac | | | | [...] | | | | | | [place], | | | | | | [place] [address] | | | | | | [phone] | | | | | | | | +--------+ + + + + documented as of this encounter Visit Diagnoses + + | Diagnosis | + + | Hyperlipidemia, mixed - Primary Mixed hyperlipidemia | + + documented in this encounter"
--- OUTSIDE RECORDS SUMMARY | ~2019-11-16 | XMS | Encounter Summary ---
Demographics + + + | Address | [address] | | | [place] [address] | + + + | Home Phone [...] Providers + +------+ + | Care Cashier Self Service Gasoline Name | Role | Phone | + [...] W | | | | | [place], | [place], | | | | | [place] [address] | [place] [address] | | | | | [phone] | [phone] | | | | | | | [...] Monitor | | MD [address] [place] | Interrogation | | | | | [place], | (Primary Dx); | | | | | [place] [address] | Presence of | | | | | [phone] | permanent cardiac | | | | [...] 2018 | Monitor | | MD [facility] | Interrogation | | | | | [place], | (Primary Dx); | | | | | [place] [address] | Presence of | | | | | [phone] | permanent cardiac | | | | [...] | | | | | | [place], | | | | | | [place] [address] | | | | | | [phone] | | | | | | | [...] Comment | + + | [facility] | + + + +---------+ + + [...] Comment | + + | [facility] | + + + +---------+ + + [...] Comment | + + | [facility] | + + + +---------+ + + [...]
--- OUTSIDE RECORDS SUMMARY | ~2019-11-16 | XMS | Encounter Summary ---
Demographics + + + | Address | [address] | | | [place] [address] | + + + | Home Phone [...] Providers + +------+ + | Care Student Accounts Coordinator Name | Role | Phone | + +------+ + PCP | Unavailable | + +------+ + Encounter Details +--------+ + + + + | Date | Type | Department | Care Team | Description | +--------+ + + + + | 06/12/ | [facility] | [facility] | Hunter Antunez, | | | 2007 - | Encounter | MED CTR ICU [address] | MD [address] | | | | | [place], | [place] | | | 06/15/ | | [place] [address] | [address] | | | 2007 | | [phone] | | | +--------+ + + + [...] Dx); | | | | | [place] [address] | Presence of | | | | | [phone] | permanent cardiac | | | | [...] Dx); | | | | | [place] [address] | Presence of | | | | | [phone] | permanent cardiac | | | | [...] W | | | | | | [place], | | | | | | [place] [address] | | | | | | [phone] | | | | | | | | +--------+ + + + + documented as of this encounter Visit Diagnoses Not on filedocumented in this encounter"
--- OUTSIDE RECORDS SUMMARY | ~2019-11-16 | XMS | Encounter Summary ---
Demographics + + + | Address | [address] | | | [place] [address] | + + + | Home Phone [...] Providers + +------+ + | Care Derrick Operator Name | Role | Phone | + +------+ + PCP | Unavailable | + +------+ + Encounter Details +--------+ + + + + | Date | Type | Department | Care Team | Description | +--------+ + + + + | 06/14/ | [facility] | [facility] | Kennethshaistatesha Shaistakenneth, | | | 2008 - | Encounter | MED CTR MP INTRA OP | [address] | | | | | [address] | [address], | | | 06/15/ | | [place] | [place] [address] | | | 2008 | | [address] | [phone] | | | | | [phone] | | | +--------+ + + + [...] Dx); | | | | | [place] [address] | Presence of | | | | | [phone] | permanent cardiac | | | | [...] | | 2018 | Monitor | | [place] [address] [facility] | Interrogation | | | | | [place], | (Primary Dx); | | | | | [place] [address] | Presence of | | | | | [phone] | permanent cardiac | | | | [...] | | | | | | [place] [address] | | | | | | [phone] | | | | | | | | +--------+ + + + + documented as of this encounter Visit Diagnoses Not on filedocumented in this encounter"
--- OUTSIDE RECORDS SUMMARY | ~2019-11-16 | XMS | Encounter Summary ---
Demographics + + + | Address | [address] | | | [place] [address] | + + + | Home Phone [...] | [facility] | | [...] Providers + +------+ + | Care Plant Puller Name | Role | Phone | [...] + + | 09/01/ | Office | [facility] | Sil[place], | Ascending thoracic | | 2015 | Visit | CARDIOLOGY [address] | [place] [address] | aortic aneurysm | | | | [place], | [place], | ([facility]) (Primary Dx); | | | | [place] [address] | [place] [address] | Coronary artery | | | | [phone] | [phone] | disease involving | | | | [...] of non-critical coronary artery d isease involving quileute coronary artery of quileute heart without angina pectoris, essential h ypertension, [...] episode of chest pain while nelly ng [facility], so he took some sublingual [...] by mouth every evening 90 tablet 3 [facility] Natural [...] 3rd dose, call 911 100 tablet 3 [place]-3 Fatty Acids (SALMON OIL-1000 PO) CAPS, one [...] PLTEX 129* 05/12/2016 I reviewed records from [facility] for office visit on [facility]/2016 [facility] ch is summarized in the [...] 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 On physical examination there are no signs of fluid overload. The plan will be to lose weight, modify portion control, start exercising, limit sodium in take and we will start losartan 25 mg once a day with a close monitoring of blood pressure. 2. Non-critical Coronary artery disease involving quileute coronary artery of quileute heart [facility] angina pectoris: A. Normal exercise sestamibi stress [...] to go back in 3 days to [place] for an attempt of ablation under general [...] this chart may have been created with enStage voice recognition software. Occasi onal wrong-word or [...] Interrogation | | | | | [place], | (Primary Dx); | | | | | [place] [address] | Presence of | | | | | [phone] | permanent cardiac | | | | [...] | Monitor | | MD [address] [place] | Interrogation | | | | | [place], | (Primary Dx); | | | | | [place] [address] | Presence of | | | | | [phone] | permanent cardiac | | | | [...] W | | | | | | [place], | | | | | | [place] [address] | | | | | | [phone] | | | | | | | [...]
--- OUTSIDE RECORDS SUMMARY | ~2019-11-16 | XMS | Encounter Summary ---
Demographics + + + | Address | [address] | | | [place] [address] | + + + | Home Phone [...] Providers + +------+ + | Care Pharmacist Critical Care Name | Role | Phone | [...] | 09/30/ | Telephone | [facility] [place] | Daljit Singletary, | Other (Danieljoao | | 2018 | | [place] [address] | [address] | remote) | | | | [place], | [place], | | | | | [place] [address] | [place] [address] | | | | | [phone] | [phone] | | | | | | | [...] 2018 | Monitor | | [address] | Interrogation | | | | | [place], | (Primary Dx); | | | | | [place] [address] | Presence of | | | | | [phone] | permanent cardiac | | | | [...] | Monitor | | MD [address] | Interrogation | | | | | [place], | (Primary Dx); | | | | | [place] [address] | Presence of | | | | | [phone] | permanent cardiac | | | | [...] | | | | | | [place] [address] | | | | | | [phone] | | | | | | | | +--------+ + + + + documented as of this encounter Visit Diagnoses Not on filedocumented in this encounter"
--- OUTSIDE RECORDS SUMMARY | ~2019-11-16 | XMS | Encounter Summary ---
Demographics + + + | Address | [address] | | | [place] [address] | + + + | Home Phone [...] Providers + +------+ + | Care Agricultural Purchasing Agent Name | Role | Phone | + +------+ + | Kirk French MD | PCP | | + +------+ + Encounter Details +--------+ + + + + | Date | Type | Department | Care Team | Description | +--------+ + + + + | 01/05/ | Hospital | [facility] | Emmanuel Daniel MD | Functional diarrhea | | 2019 | Encounter | MED CTR MP INTRA OP | [address] [place] | (Primary Dx); Weight | | | | [address] | [address] [place], [place] | loss | | | | [place], [place] | [address] | | | | | [address] | | | | | | [phone] | | | +--------+ + + + [...] for a few hours. Date Last Reviewed: 09/22/201619999793-4654 [employer]. [address] [place] [address], [place] [address]. All righ ts reserved. This information is [...] vomiting, or vomiting blood Date Last Reviewed: 05/22/201619999897-7583 [employer]. [address] [place] [address]. All [facility] ts reserved. This information is not [...] You can't be awakened Date Last Reviewed: 09/08/201619990412-1206 [employer]. [address] [place] [address], [place] [address]. All righ ts reserved. This information is [...] Dx); | | | | | [place] [address] | Presence of | | | | | [phone] | permanent cardiac | | | | [...] Dx); | | | | | [place] [address] | Presence of | | | | | [phone] | permanent cardiac | | | | [...] | | | | | | [place], | | | | | | [place] [address] | | | | | | [phone] | | | | | | | [...] + | Performed at: 01 - [facility] [address] [place] [address], | REFERENCE LAB | | [place], [place] [id number] Event Host: Miguel Galarza MD, Phone: | [facility] | | [phone] | | + + + + + + + + | Performing | Address | City/State/Zipcode | Phone Number | | Organization | | | | + + + + + | REFERENCE LAB | [address] | [place] [address] | [phone] | | [facility] | [address] | | [...] [address], | REFERENCE LAB | | [place], [place] [id number] Event Host: Miguel Galarza MD, Phone: | [facility] | | [phone] | | + + + + + + + + | Performing | Address | City/State/Zipcode | Phone Number | | Organization | | | | + + + + + | REFERENCE LAB | [address] | [place] [address] | [phone] | | [facility] | Drive [...] [address] | [place] | [phone] | | [facility] | | [address] | | | - LABORATORY | | [...] [address] | [place] | [phone] | | [facility] | | [address] | | | - LABORATORY | | [...] | | dium | | | [facility] | | | Antigen | [...] [address] | [place] | [phone] | | [facility] | | [address] | | | - LABORATORY | | [...] + | [facility] | [address] | [place] | [phone] | | [facility] | | [address] | | | - LABORATORY | | [...] [address] | [place] | [phone] | | [facility] | | [address] | | | - LABORATORY | | [...] + | [facility] | [address] | [place] | [phone] | | [facility] | | [address] | | | - LABORATORY | | | | + + + + + EGD (01/05/2019 8:36 AM PST) + + | Specimen | + + | | + + + + -+ | Narrative | Performed At | + + -+ | | [facility] | | GastroenterologyPatient Name: Moe Venegas Date: | PROVATION | | 01/05/2019 8:36 AMMRN: [id number] #: [id number] of : | | | 9Admit Type: AmbulatoryAge: 58Room: [facility] 01Gender: MaleNote | | | Status: FinalizedAttending MD: Emmanuel Daniel , MDProcedure: | | | Upper GI endoscopyIndications: Diarrhea, Weight | | | lossProviders: Emmanuel Daniel MD, Heidi Mixon Marengo, | | | RN, Kim Hicks, Blocker And Polisher Gold Wheel, | | | Jarett Barakat MD (Anesthesia [...] physician, the nurse, the anesthesiologist and the ceramics technician | | | in the endoscopy [...] | | Imaging was performed using the DAQ[employer] Intelligent Chromo | | | Endoscopy (FICE) [...] In: 8:43:57 AMScope Out: 8:49:50 AM [facility]. | | | [facility], [address] [place] [address] | | | [phone] | | |Recommendation: | | | - [...] |Scope Out: 8:49:50 AM | | | [facility]. [facility], [address] [place] [address] | | | [address] | | + + -+ + +---------+ [...] | PROVATION | | 01/05/2019 8:36 AMMRN: [id number] #: [id number] of : | | | 9Admit Type: AmbulatoryAge: 58Room: [facility] 01Gender: MaleNote | | | Status: FinalizedAttending MD: Emmanuel Daniel , [facility]: | | | ColonoscopyIndications: Clinically significant diarrhea of | | | unexplained origin, Weight lossProviders: | | | Emmanuel Daniel MD, Heidi An RN, Thorndike | | | Fiorella Hicks, Blocker And Polisher Gold Wheel, Jarett Quezada. | | | MD Roshni [...] | | | the anesthesiologist and the ceramics technician in the endoscopy suite. | | [...] 9:06:28 AM [facility], [address] [facility], | | | [place] [address] | | | - Discharge patient to [...] | | [facility], [address] [place], [place] | | | [address] | | + + -+ + +---------+ [...] | | | (atherosclerotic heart disease of rincon coronary artery without | | | angina [...] | | | microscopic colitis. [facility]:C3NR GROSS DESCRIPTION: A. The | | | specimen, labeled "Americus, duodenal biopsy" is received in formalin | | | and consists of seven 0.1-0.5 cm lin fragments. Entirely submitted in | | | (A1). B. The specimen, labeled "Americus, right colon" is received | | | in formalin and consists of six 0.2-0.3 cm lin fragments. Entirely | | | submitted in (B1). C. The specimen, labeled "Americus, left colon" | | | is received in formalin and consists of six 0.2-0.3 cm lin-pink | | | fragments. Entirely submitted in (C1). am:AMB:portillo PERFORMING | | | LABORATORY: The technical component was performed by [facility] | | | [facility] [address] (Poolroom Table Attendant: | | | Kailey Stafford MD; CLIA# [id number]). Professional interpretation was | | | performed by [facility] [place] [address] | | | [place] [address] (Poolroom Table Attendant: Ishaan | | Shanique Dao M.D.; CLIA#: [id number]). Diagnostician: Ishaan Fitzpatrick | | | Sylwia [...]
--- OUTSIDE RECORDS SUMMARY | ~2019-11-16 | XMS | Encounter Summary ---
Demographics + + + | Address | [address] | | | [place] [address] | + + + | Home Phone [...] + +------+ + | Care Clinical Quality Assurance Specialist Name | Role | Phone | [...] + + | 08/04/ | Telephone | [facility] | [place], | Other (4 week event | | 2017 | | CARDIOLOGY [address] | [place] [address] | monitor ) | | | | [place], | [place], | | | | | [place] [address] | [place] [address] | | | | | [phone] | [phone] | | | | | | | [...] | Monitor | | MD [address] | Interrogation | | | | | [place], | (Primary Dx); | | | | | [place] [address] | Presence of | | | | | [phone] | permanent cardiac | | | | [...] | Monitor | | MD [address] | Interrogation | | | | | [place], | (Primary Dx); | | | | | [place] [address] | Presence of | | | | | [phone] | permanent cardiac | | | | [...] | | | | | | [place] [address] | | | | | | [phone] | | | | | | | | +--------+ + + + + documented as of this encounter Visit Diagnoses Not on filedocumented in this encounter"
--- OUTSIDE RECORDS SUMMARY | ~2019-11-16 | XMS | Encounter Summary ---
Demographics + + + | Address | [address] | | | [place] [address] | + + + | Home Phone [...] Team Providers + +------+ + | Care Greenhouse Instructor Name | Role | Phone | [...] Provider Unknown | | | | | [place], [place] | [phone] | | | | | [address] | | | | | | [phone] | | | +--------+ + + + [...] + + + +---------+ + + | [place]-3 Fatty | CAPS, one capsule by | [...] | | | | | | | #[id number], exp 07/2016 | | | | | [...] Interrogation | | | | | [facility] | (Primary Dx); | | | | | [place] [address] | Presence of | | | | | [phone] | permanent cardiac | | | | [...] | 2018 | Monitor | | [address] | Interrogation | | | | | [place], | (Primary Dx); | | | | | [place] [address] | Presence of | | | | | [phone] | permanent cardiac | | | | [...] W | | | | | | [place], | | | | | | [place] [address] | | | | | | [phone] | | | | | | | [...]
--- OUTSIDE RECORDS SUMMARY | ~2019-11-16 | XMS | Encounter Summary ---
Demographics + + + | Address | [address] | | | [place] [address] | + + + | Home Phone [...] Providers + +------+ + | Care Data Virtualization Consultant Name | Role | Phone [...] + | 08/29/ | [facility] | [facility] | [place], | Essential | | 2015 | Visit | CARDIOLOGY [address] | [place] [address] | hypertension | | | | [place], | [place], | (Primary Dx); | | | | [place] [address] | [place] [address] | Coronary artery | | | | [phone] | [phone] | disease involving | | | | | | knik [...] was seen in the emergency room at [facility] on 08/23/20 15 and the ER physician reviewed his chart saying that there were 2 ultrasounds from [facility] both of them are clear of DVT but reveal some venous insufficiency. Today, arian ent tells me that he started having swelling in both his feet within a week when he got to [facility]. He had extensive traveling. 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 90 tablet 3 [facility] Natural Products (OSTEO BI-FLEX/5-LOXIN ADVANCED PO) Take [...] 3rd dose, call 911 100 tablet 3 [place]-3 Fatty Acids (SALMON OIL-1000 PO) CAPS, one [...] Daily. to reduce urinary frequenc y Lot #[id number], exp 07/2016 (Patient taking differently: Take 8 mg by mouth Daily. PATIENT STA YOSELIN NO LONGER TAKING THIS MEDICATION. STATED ON 08/29/2015. to reduce urinary frequency Lot #[id number], exp 07/2016) 21 capsule 0 Specialty Vitamins [...] PLTEX 163 07/26/2014 I reviewed records from [facility] for emergency department visit o n 08/23/2015. [...] brought reports to the emergency room at [facility] and according to the not es [...] arrhythmia performed by Dr. Gambino at [facility] on 01/30/2013. Patient had spontaneous [...] to go back in 3 days to [place] for an attempt of ablation under general [...] dizziness. He is in class I-II of [place] 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 T here are [...] this chart may have been created with QR Wild voice recognition software. Occasi onal wrong-word or [...] Dx); | | | | | [place] [address] | Presence of | | | | | [phone] | permanent cardiac | | | | [...] Dx); | | | | | [place] [address] | Presence of | | | | | [phone] | permanent cardiac | | | | [...] | | | | | | [place] [address] | | | | | | [phone] | | | | | | | [...] the | | | | PDT | knik coronary | results section. | | | [...] HISTORY: DVT. COMPARISON: None. TECHNIQUE: Compression | [facility] | | sonography was performed from the groin through the popliteal fossa | [facility] | | in both lower extremities.. [...] conveyed to the ordering provider, by the lab assistant, | | | immediately following the [...] to the ordering provider, by the | |lab assistant, immediately following the exam. | | | | | |Dictated and Signed by: Emmanuel Gibbons MD | | Electronically signed: 08/29/2015 3:25 PM | + + + + + + + | Performing | Address | City/State/Zipcode | Phone Number | | Organization | | | | + + + + + | [facility] | [address] | [place] | [phone] | | [facility] | | [address] | | | - IMAGING | | [...] MD | | | | | | ([id number]) on 08/29/2015 | | | | | [...] Coronary artery disease involving knik coronary artery without angina pectoris | + + | DVT (deep venous thrombosis), bilateral | + + documented in this encounter
--- OUTSIDE RECORDS SUMMARY | ~2019-11-16 | XMS | Encounter Summary ---
Demographics + + + | Address | [address] | | | [place] [address] | + + + | Home Phone [...] Providers + +------+ + | Care Supervisor Dock Name | Role | Phone | + +------+ + PCP | Unavailable | + +------+ + Encounter Details +--------+ + + + + | Date | Type | Department | Care Team | Description | +--------+ + + + + | 08/26/ | Hospital | [facility] | | | | 2009 | Encounter | MED CTR LABORATORY | | | | | | [address] | | | | | | [place] | | | | | | [address] | | | | | | [phone] | | | +--------+ + + + [...] Dx); | | | | | [place] [address] | Presence of | | | | | [phone] | permanent cardiac | | | | [...] MD [facility] | Interrogation | | | | | [place], | (Primary Dx); | | | | | [place] [address] | Presence of | | | | | [phone] | permanent cardiac | | | | [...] | | | | | | [place] [address] | | | | | | [phone] | | | | | | | | +--------+ + + + + documented as of this encounter Visit Diagnoses Not on filedocumented in this encounter"
--- OUTSIDE RECORDS SUMMARY | ~2019-11-16 | XMS | Encounter Summary ---
Demographics + + + | Address | [address] | | | [place] [address] | + + + | Home Phone [...] + +------+ + | Care Rental Sales Representative Name | Role | Phone [...] [address] | | | | | [place], | [place], | | | | | [place] [address] | [place] [address] | | | | | [phone] | [phone] | | | | | | | [...] | Monitor | | MD [address] | Interrogation | | | | | [place], | (Primary Dx); | | | | | [place] [address] | Presence of | | | | | [phone] | permanent cardiac | | | | [...] | Monitor | | MD [address] [place] | Interrogation | | | | | [place], | (Primary Dx); | | | | | [place] [address] | Presence of | | | | | [phone] | permanent cardiac | | | | | | pacemaker; | | | | | | Sinoatrial node | | | | | | dysfunction (HCC) | | | | | | with symptomatic | | | | | | bradycardia | +--------+ + + + + | 02/10/ | Office | Cardiology | [place], | | | 2020 | Visit | | [place] [address] | | | | | | [place], | | | | | | [place] [address] | | | | | | [phone] | | | | | | | [...]
--- OUTSIDE RECORDS SUMMARY | ~2019-11-16 | XMS | Encounter Summary ---
Demographics + + + | Address | [address] | | | [place] [address] | + + + | Home Phone [...] Team Providers + +------+ + | Care Burner Tender Name | Role | Phone | [...] Provider Unknown | | | | | [place], [place] | [phone] | | | | | [address] | | | | | | [phone] | | | +--------+ + + + [...] + + + +---------+ + + | [place]-3 Fatty | CAPS, one capsule by [...] Monitor | | MD [address] [place] | Interrogation | | | | | [place], | (Primary Dx); | | | | | [place] [address] | Presence of | | | | | [phone] | permanent cardiac | | | | [...] Monitor | | MD [address] [place] | Interrogation | | | | | [place], | (Primary Dx); | | | | | [place] [address] | Presence of | | | | | [phone] | permanent cardiac | | | | [...] | | | | | | [place], | | | | | | [place] [address] | | | | | | [phone] | | | | | | | [...]
--- OUTSIDE RECORDS SUMMARY | ~2019-11-16 | XMS | Encounter Summary ---
Demographics + + + | Address | [address] | | | [place] [address] | + + + | Home Phone [...] Providers + +------+ + | Care Hand Ii Blocker Name | Role | Phone | + +------+ + PCP | Unavailable | + +------+ + Encounter Details +--------+ + + + + | Date | Type | Department | Care Team | Description | +--------+ + + + + | 10/13/ | Hospital | [facility] | | | | 2007 | Encounter | MED CTR EMERGENCY | | | | | | [place] [address] | | | | | | [place] | | | | | | [address] | | | | | | [phone] | | | +--------+ + + + [...] Dx); | | | | | [place] [address] | Presence of | | | | | [phone] | permanent cardiac | | | | [...] Interrogation | | | | | [place], | (Primary Dx); | | | | | [place] [address] | Presence of | | | | | [phone] | permanent cardiac | | | | [...] W | | | | | | [place], | | | | | | [place] [address] | | | | | | [phone] | | | | | | | | +--------+ + + + + documented as of this encounter Visit Diagnoses Not on filedocumented in this encounter"
--- OUTSIDE RECORDS SUMMARY | ~2019-11-16 | XMS | Encounter Summary ---
Demographics + + + | Address | [address] | | | [place] [address] | + + + | Home Phone [...] Providers + +------+ + | Care Supervisor Twisting Department Name | Role | Phone | + +------+ + | Michael Amanda DO | PCP | | + +------+ + Reason for Visit + + + | Reason | Comments | + + + | Follow-up | One month with [facility] 12/25/13 | + + + | Chest Pain | | + + + Encounter Details +--------+---------+ + + + | Date | Type | Department | Care Team | Description | +--------+---------+ + + + | 01/29/ | Office | [facility] | [place], | Other chest pain | | 2013 | Visit | CARDIOLOGY [address] | [address] [address] | (Primary Dx); Chest | | | | [place], | [place], | pain; Coronary | | | | [place] [address] | [place] [address] | artery disease; | | | | [phone] | [phone] | Hyperlipidemia; | | | | | [...] [facility] with a baljit [facility] pain [...] needed for Chest pain. 25 tablet 12 [place]-3 Fatty Acids (SALMON OIL-1000 PO) CAPS, [...] was seen on the emergency room at [place] on 01/26/2014, he was ruled out A [...] pain. He is in class II of [place] 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 There are no [...] to go back in 3 days to [place] for an attempt of ablation under general [...] symptoms. He is in class II of [place] 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 There are no [...] made to ensure accuracy; however, inadvertent computerized hydraulic press in operator errors may be pre sent. Electronically [...] Dx); | | | | | [place] [address] | Presence of | | | | | [phone] | permanent cardiac | | | | [...] 2018 | Monitor | | [address] | Interrogation | | | | | [place], | (Primary Dx); | | | | | [place] [address] | Presence of | | | | | [phone] | permanent cardiac | | | | [...] | | | | | [place], | | | | | | [place] [address] | | | | | | [phone] | | | | | | | [...] of unspecified type of vessel, | | menominee or graft | + + | Hyperlipidemia Other and unspecified hyperlipidemia | + + | Symptomatic PVCs Other premature beats | + + | Hypertension Unspecified essential hypertension | + + documented in this encounter
--- OUTSIDE RECORDS SUMMARY | ~2019-11-16 | XMS | Encounter Summary ---
Demographics + + + | Address | [address] | | | [place] [address] | + + + | Home Phone [...] Team Providers + +------+ + | Care Filenet Architect Name | Role | Phone | [...] 2019 | | GASTROENTEROLOGY | [address] [place] | | | | | [address] [place] | [address] [place], [place] | | | | | [address] [place], [place] | [address] | | | | | [address] | | | | | | [phone] | | | +--------+--------+ + + + [...] 2019 | Monitor | | [place] [address] [facility] | Interrogation | | | | | [place], | (Primary Dx); | | | | | [place] [address] | Presence of | | | | | [phone] | permanent cardiac | | | | [...] Dx); | | | | | [place] [address] | Presence of | | | | | [phone] | permanent cardiac | | | | [...] W | | | | | | [place], | | | | | | [place] [address] | | | | | | [phone] | | | | | | | | +--------+ + + + + documented as of this encounter Visit Diagnoses Not on filedocumented in this encounter"
--- OUTSIDE RECORDS SUMMARY | ~2019-11-16 | XMS | Encounter Summary ---
Demographics + + + | Address | [address] | | | [place] [address] | + + + | Home Phone [...] Providers + +------+ + | Care Key Maker Name | Role | Phone | [...] [address] | | | | | | [place], [place] | (Fax) | | | | | [address] | | | | | | [phone] | | | +--------+ + + + [...] 2019 | Monitor | | [address] [place] | Interrogation | | | | | [place], | (Primary Dx); | | | | | [place] [address] | Presence of | | | | | [phone] | permanent cardiac | | | | [...] Dx); | | | | | [place] [address] | Presence of | | | | | [phone] | permanent cardiac | | | | [...] | | | | | [place], | | | | | | [place] [address] | | | | | | [phone] | | | | | | | | +--------+ + + + + documented as of this encounter Visit Diagnoses Not on filedocumented in this encounter"
--- OUTSIDE RECORDS SUMMARY | ~2019-11-16 | XMS | Encounter Summary ---
Demographics + + + | Address | [address] [place] [address] | | | [place] [address] | + + + | Home Phone [...] [place] | | | | | [address] | | + + + + + Care Team Providers + +------+ + | Care Seasonal Customer Service Associate Name | Role | Phone | [...] | | | | | TRANSTHORACI | [place], [place] | for Health | | | | | C | [address] | and Healing, | | | | | ECHOCARDIOGR | Phone: | Building 1 | | | | | AM, ADULT | [phone] | [place], [place] | | | | | | Fax: | [address] | | | | | | [phone] | Phone: | | | | | | | [phone] | +--------+--------+ + + + + Reason [...] | | | | | | [place] [id number] | | | | | | | Phone: | | | | | | | [phone] | | | | | | | Fax: | | | | | | | [phone] | | +--------+--------+ + + + + Encounter Details +--------+---------+ + + + | Date | Type | Department | Care Team | Description | +--------+---------+ + + + | 02/03/ | Office | Cardiology General | Arlette Drew, | Chest pain (Primary | | 2010 | Visit | at [facility] [address] | MD | Dx); Bradycardia; | | | | [address] Crane Mailcode: | | Pacemaker | | | | [address] | | | | | | Health and Healing, | | | | | | Building | | | | | | Floor [place], [place] | | | | | | [address] | | | | | | [phone] | | | +--------+---------+ + + + [...] per Dr. Drew's note. Farooq Jamil DO Grounds Maintenance Supervisor Clinical oil producer/ Division of Cardiovascular Medicine Yajaira Borges, [place] - 02/09/2011 12:59 PM PDT PACEMAKER HISTORY Primary Care Provider: Darion Holden DO Souvenir And Novelty Maker: Arlette Drew MD Moe Sanchez is a [...] pacemaker was put at the recommendation of Souvenir And Novelty Maker Dr. Singletary from [place]. [place]. Pt. states lala bhatti was put>1 [...] form tilt table testing but NA at [facility] May need to involve endocrine [...] Dr. Omero DREW MD CARDIOLOGY - GENERAL [address] Mailcode: [facility], 9th Floor [facility] [address] documented in this en counter [...] [facility] [address] [address] [facility] | REGIONAL | | [place] [address] | LABORATORY | + + + + + + + + | Performing | Address | City/State/Zipcode | Phone Number | | Organization | | | | + + + + + | [facility] | [address] | [place] [address] | | | LABORATORY | | | [...] RLB ([address] [facility]) | | | [facility] [place] [address] | | | [place] [address] | | + + + + + + + + | Performing | Address | City/State/Zipcode | Phone Number | | Organization | | | | + + + + + | [facility] | [address] | [place] [address] | | | LABORATORY | | | [...] | + + + + + | [facility] DEPARTMENT | [address] | [place] [address] | | | PATHOLOGY | [address] [...] DEPT OF | [address] | [place], [place] | | | CARDIOLOGY | [address] | [address] | | + + + + + [...] DEPT OF | [address] | [place], [place] | | | CARDIOLOGY | [address] | [address] | | + + + + + [...] + + + | Please click | [facility] DEPT OF | | on view image for the detailed interpretation from H-art (WPP) results. | CARDIOLOGY | + + + + + + + + | Performing | Address | City/State/Zipcode | Phone Number | | Organization | | | | + + + + + | [facility] DEPT OF | [address] | [place], [place] | | | CARDIOLOGY | [address] | [address] | | + + + + + documented in this encounter Visit Diagnoses + + | Diagnosis | + + | Chest pain - Primary Chest pain, unspecified | + + | Bradycardia Other specified cardiac dysrhythmias | + + | Pacemaker Cardiac pacemaker in situ | + + documented in this encounter
--- OUTSIDE RECORDS SUMMARY | ~2019-11-16 | XMS | Encounter Summary ---
Demographics + + + | Address | [address] | | | [place] [address] | + + + | Home Phone [...] Providers + +------+ + | Care Loan Clerk Name | Role | Phone | [...] Provider Unknown | | | | | [place], [place] | [phone] | | | | | [address] | | | | | | [phone] | | | +--------+ + + + [...] + + + +---------+ + + | [place]-3 Fatty | CAPS, one capsule by [...] Dx); | | | | | [place] [address] | Presence of | | | | | [phone] | permanent cardiac | | | | [...] Interrogation | | | | | [place], | (Primary Dx); | | | | | [place] [address] | Presence of | | | | | [phone] | permanent cardiac | | | | [...] | | | | | | [place], | | | | | | [place] [address] | | | | | | [phone] | | | | | | | [...]
--- OUTSIDE RECORDS SUMMARY | ~2019-11-16 | XMS | Encounter Summary ---
Demographics + + + | Address | [address] | | | [place] [address] | + + + | Home Phone [...] Team Providers + +------+ + | Care Test Center Manager Name | Role | Phone [...] | 05/15/ | Office | [facility] | Matthew Uriarte | Kidney stones | | 2019 | Visit | [address] | MD Tawanna [address] | (Primary Dx) | | | | [place], [place] | [place], [place] | | | | | [address] | [address] | | | | | [phone] | | | +--------+---------+ + + + [...] [employer] Peptic ulcer disease Premature ventricular contraction [facility] health care 06/26/2013 LAST PSA:12/16/2010 [...] Surgeon: Daljit Singletary MD; Location: [facility] CV LAB CARDIAC CATHERIZATION N/A 01/25/2019 Procedure: CV Cor Angio; Surgeon: Daljit Singletary MD; Location: [facility] CV LAB COLONOSCOPY N/A 12/24/2017 Procedure: COLONOSCOPY; Surgeon: Emmanuel Daniel MD; Location: [facility] MEDICAL PROCEDURE UNIT COLONOSCOPY N/A 01/05/2019 Procedure: COLONOSCOPY; Surgeon: Emmanuel Daniel MD; Location: [facility] MEDICAL PROCEDURE UNIT EGD 12/24/2017 HARDWARE [...] Surgeon: Emmanuel Daniel MD; Location: [facility] MEDICAL PROCEDURE UNIT UPPER GASTROINTESTINAL ENDOSCOPY N/A 01/05/2019 Procedure: EGD; Surgeon: Emmanuel Daniel MD; Location: [facility] MEDICAL PROCEDURE UNIT URETEROSCOPY Left 04/13/2019 Procedure: Cystoscopy, Left ureteroscopy with laser lithotripsy, Left ureteral stent place ment; Surgeon: Matthew Uriarte MD; Location: [facility] MAIN OR VASECTOMY Family History: Family [...] 911, Disp: 100 ta blet, Rfl: 3 [place]-3 Fatty Acids (SALMON OIL-1000 PO), CAPS, one [...] pH, Urine 8.0 5.0 - 8.0 Specific [place] 1.008 1.001 - 1.030 Protein, Urine Negative [...] have not thoroughly proofread this note, and transcriptionist errors are very likely to occur. CC: Kirk French MD documented in this encounter Plan of Treatment +--------+ + + + + | Date | Type | Specialty | Care Team | Description | +--------+ + + + + | 11/20/ | Implant | Cardiology | Daljit Singletary, | Remote Device | | 2018 | Monitor | | MD [address] [facility] | Interrogation | | | | | [place], | (Primary Dx); | | | | | [place] [address] | Presence of | | | | | [phone] | permanent cardiac | | | | [...] | | MD [address] [facility] | Interrogation | | | | | [place], | (Primary Dx); | | | | | [place] [address] | Presence of | | | | | [phone] | permanent cardiac | | | | [...] | | | | | | [place] [address] | | | | | | [phone] | | | | | | | [...]
--- OUTSIDE RECORDS SUMMARY | ~2019-11-16 | XMS | Encounter Summary ---
Demographics + + + | Address | [address] | | | [place] [address] | + + + | Home Phone [...] | | PVCs | [place]ISA [place] | [address] | | | | | Procedures | [address] | [address] | | | | | OR OFFICE | [place] | [place] | | | | | CONSULTATION | [place], | [address] Phone: | | | | | NEW/ESTAB | [place] | [phone] | | | | | PATIENT 39 | [address] | Fax: | | | | | MIN | Phone: | [phone] | | | | | | [phone] | | | | | | | Fax: | | | | | | | [phone] | | +--------+--------+ + + + + Encounter Details +--------+---------+ + + + | Date | Type | Department | Care Team | Description | +--------+---------+ + + + | 11/30/ | Office | [facility] | Jay Gambino MD | Symptomatic PVCs | | 2015 | Visit | CARDIOLOGY [place]OWN | [address] | (Primary Dx) | | | | [address] | [address] [place], | | | | | [facility] [address] [place] | [place] [address] | | | | | [address] | [phone] | | | | | [phone] | | | +--------+---------+ + + + [...] Gambino MD - 11/30/2014 5:37 PM PST [facility] [address] [place] [address] Patient Name: Moe Sanchez Date: 1960 Date [...] luz marcos as needed for Chest pain. [place]-3 Fatty Acids (SALMON OIL-1000 PO) CAPS, one [...] Hypoglycemia; Drug addiction in remission ([facility]); HTN (hypertension); Hypercholesterolemia; Bipolar 1 disorder ( [...] were not detected in the editing p 51.comess. Should you have any questions or concerns, [...] Interrogation | | | | | [place], | (Primary Dx); | | | | | [place] [address] | Presence of | | | | | [phone] | permanent cardiac | | | | [...] 2018 | Monitor | | [address] | Interrogation | | | | | [place], | (Primary Dx); | | | | | [place] [address] | Presence of | | | | | [phone] | permanent cardiac | | | | [...] | | | | | | [place] [address] | | | | | | [phone] | | | | | | | [...]
--- OUTSIDE RECORDS SUMMARY | ~2019-11-16 | XMS | Encounter Summary ---
Demographics + + + | Address | [address] | | | [place] [address] | + + + | Home Phone [...] Team Providers + +------+ + | Care Flexo Operator Name | Role | Phone | + +------+ + PCP | Unavailable | + +------+ + Encounter Details +--------+ + + + + | Date | Type | Department | Care Team | Description | +--------+ + + + + | 06/23/ | [facility] | [facility] | Arthur Page MD | | | 2007 - | Encounter | MED CTR MED ONC | [address] [facility] | | | | | [address] [place] | [place] | | | 06/25/ | | [place] [address] | [address] | | | 2007 | | [phone] | | | +--------+ + + + [...] Interrogation | | | | | [place], | (Primary Dx); | | | | | [place] [address] | Presence of | | | | | [phone] | permanent cardiac | | | | [...] Interrogation | | | | | [place], | (Primary Dx); | | | | | [place] [address] | Presence of | | | | | [phone] | permanent cardiac | | | | [...] | | | | | | [place], | | | | | | [place] [address] | | | | | | [phone] | | | | | | | | +--------+ + + + + documented as of this encounter Visit Diagnoses Not on filedocumented in this encounter"
--- OUTSIDE RECORDS SUMMARY | ~2019-11-16 | XMS | Encounter Summary ---
Demographics + + + | Address | [address] | | | [place] [address] | + + + | Home Phone [...] Providers + +------+ + | Care Charge Entry Clerk Name | Role | Phone | [...] [address] | | | | | [place], | [place], | | | | | [place] [address] | [place] [address] | | | | | [phone] | [phone] | | | | | | | [...] Presence of | | | | | [phone] | permanent cardiac | | | | [...] | Monitor | | MD [address] [place] | Interrogation | | | | | [place], | (Primary Dx); | | | | | [place] [address] | Presence of | | | | | [phone] | permanent cardiac | | | | [...] | | | | | | [place] [address] | | | | | | [phone] | | | | | | | | +--------+ + + + + documented as of this encounter Visit Diagnoses Not on filedocumented in this encounter"
--- OUTSIDE RECORDS SUMMARY | ~2019-11-16 | XMS | Encounter Summary ---
Demographics + + + | Address | [address] | | | [place] [address] | + + + | Home Phone [...] Providers + +------+ + | Care Master [place] Name | Role | Phone | + [...] + + | 09/09/ | Office | [facility] | Michael Amanda, | Hyperlipidemia; | | 2011 | Visit | MEDICINE BREWSTER | DO [address] | Hypertension; | | | | [address] | [place] | Chronic pain | | | | [place] | [address] | syndrome; Neck pain, | | | | [address] | | chronic | | | | [phone] | | | +--------+---------+ + + + [...] damage history No ASHD (either angina; prior [place]; prior CABG) No cardiac end organ damage [...] slowly cutting back. Pt was going through [facility] for opiate medications prior to [...] 2019 | Monitor | | [address] [place] | Interrogation | | | | | [place], | (Primary Dx); | | | | | [place] [address] | Presence of | | | | | [phone] | permanent cardiac | | | | [...] Dx); | | | | | [place] [address] | Presence of | | | | | [phone] | permanent cardiac | | | | [...] W | | | | | | [place], | | | | | | [place] [address] | | | | | | [phone] | | | | | | | [...]
--- OUTSIDE RECORDS SUMMARY | ~2019-11-16 | XMS | Encounter Summary ---
Demographics + + + | Address | [address] | | | [place] [address] | + + + | Home Phone [...] Providers + +------+ + | Care Psychiatric Technician Name | Role | Phone | [...] W | reprogramming/check | | | | [place], | [address] [place] | DO NOT DELETE | | | | [place] [address] | [place] [address] | (Primary Dx); | | | | [phone] | [phone] | Pacemaker - | | | | [...] | | | | | [address] [place], | (Primary Dx); | | | | | [place] [address] | Presence of | | | | | [phone] | permanent cardiac | | | | [...] | 2018 | Monitor | | [address] | Interrogation | | | | | [place], | (Primary Dx); | | | | | [place] [address] | Presence of | | | | | [phone] | permanent cardiac | | | | [...] W | | | | | | [place], | | | | | | [place] [address] | | | | | | [phone] | | | | | | | [...]
--- OUTSIDE RECORDS SUMMARY | ~2019-11-16 | XMS | Encounter Summary ---
Demographics + + + | Address | [address] | | | [place] [address] | + + + | Home Phone [...] Providers + +------+ + | Care Proposal Editor Name | Role | Phone | [...] + | 12/23/ | Telephone | [facility] | Silvia, | Lab Order (due for | | 2017 | | CARDIOLOGY [address] | Janeen, GYRO COMPASS TESTER [address] | fasting labs) | | | | [place], | [place], | | | | | [place] [address] | [place] [address] | | | | | [phone] | | | | | | | [...] Dx); | | | | | [place] [address] | Presence of | | | | | [phone] | permanent cardiac | | | | [...] 2018 | Monitor | | [address] [place] | Interrogation | | | | | [place], | (Primary Dx); | | | | | [place] [address] | Presence of | | | | | [phone] | permanent cardiac | | | | [...] | | | | | | [place] [address] | | | | | | [phone] | | | | | | | | +--------+ + + + + documented as of this encounter Visit Diagnoses Not on filedocumented in this encounter"
--- OUTSIDE RECORDS SUMMARY | ~2019-11-16 | XMS | Encounter Summary ---
Demographics + + + | Address | [address] | | | [place] [address] | + + + | Home Phone [...] + + | 06/04/ | Hospital | [facility] | Sariah, | Cervical spinal | | 2016 | Encounter | MED CTR XRAY [address] | [place] Mason, STOCKROOM HELPER [address] | stenosis | | | | [place] | [address] | | | | | [place] [address] | [place] [address] | | | | | [phone] | [phone] | | | | | | | [...] + + + +---------+ + + | [place]-3 Fatty | CAPS, one capsule by | [...] Dx); | | | | | [place] [address] | Presence of | | | | | [phone] | permanent cardiac | | | | [...] 2018 | Monitor | | MD [address] [place] | Interrogation | | | | | [place], | (Primary Dx); | | | | | [place] [address] | Presence of | | | | | [phone] | permanent cardiac | | | | [...] | | | | | [place], | | | | | | [place] [address] | | | | | | [phone] | | | | | | | [...] | | | | thecal, Starting [facility] 06/04/16 at | | | | [...]
--- OUTSIDE RECORDS SUMMARY | ~2019-11-16 | XMS | Encounter Summary ---
Demographics + + + | Address | [address] | | | [place] [address] | + + + | Home Phone [...] Providers + +------+ + | Care Welder Helper Name | Role | Phone | + +------+ + | Michael Amanda DO | PCP | | + +------+ + Encounter Details +--------+ + + + + | Date | Type | Department | Care Team | Description | +--------+ + + + + | 01/30/ | Hospital | [facility] | Jay Gambino MD | | | 2012 - | Encounter | HEART MED CTR | [address] | | | | | CARDIAC TELEMETRY | [address] [place], | | | 01/31/ | | [address] | [place] [address] | | | 2012 | | [place] | [phone] | | | | | [address] | | | | | | [phone] | | | +--------+ + + + [...] 1960 ADMISSION DATE: 01/30/2013 DISCHARGE DATE: 01/31/2013 [id number] / [id number] ADMITTING DIAGNOSES: 1. Symptomatic PVCs. 2. Sinus [...] 150, 1 to 2 tabs daily. 10. [place]-3 fatty acids 1000 mg b.i.d. MOE GAY ADM:01/30/13 [id number] 01/31/13 DIS [place] DISCHARGE SUMMARY [id number] [facility] Carmela Cuveas PAC B [facility] MD Meena Pleitez THIS REPORT IS CONFIDENTIAL AND NOT TO BE RELEASED WITHOUT PROPER AUTHORIZATION. [facility] 11. Valacyclovir 500 mg daily. B. New medication added: Diltiazem CD 180 a day. FOLLOWUP: The patient has a followup appointment on 03/02/2013 at 10:[address] Niles meza at the [facility] [place], [address]. No heavy lifting or driving times 48 hours. YOANA Barlow MD A P [facility] [place][id number] cc: MD Carmela Pleitez PA-C Electronically Signed 02/06/13 1616 LAKESHIA Barlow Electronically Signed 02/20/13 0731 Jay Gambino MD MOE GAY ADM:01/30/13 [id number] 01/31/13 DIS [place] DISCHARGE SUMMARY [id number] [facility] LAKESHIA Barlow B [facility] Jay Gambino MD R THIS REPORT IS CONFIDENTIAL AND NOT TO BE RELEASED WITHOUT PROPER AUTHORIZATION.Electronica lly signed by Jael Brown at 02/20/2013 7:31 AM FRANCYZzCarmela Moncada - 02/01/20 13 8:44 AM PDT PATIENT NAME: MOE GAY Sex/Age: M / 52Y : 1960 ADMISSION DATE: 01/30/2013 DISCHARGE DATE: 01/31/2013 [id number] / [id number] ADMITTING DIAGNOSES: 1. Symptomatic PVCs. 2. Sinus [...] 150, 1 to 2 tabs daily. 10. [place]-3 fatty acids 1000 mg b.i.d. MOE GAY ADM:01/30/13 [id number] 01/31/13 DIS [place] DISCHARGE SUMMARY [id number] [facility] LAKESHIA Barlow B [facility] MD Meena Pleitez THIS REPORT IS CONFIDENTIAL AND NOT TO BE RELEASED WITHOUT PROPER AUTHORIZATION. [facility] 11. Valacyclovir 500 mg daily. B. New medication added: Diltiazem CD 180 a day. FOLLOWUP: The patient has a followup appointment on 03/02/2013 at 10:[address] Niles meza at the [facility], [address]. No heavy lifting or driving times 48 hours. YOANA Barlow MD A P [facility] #[id number] cc: MD Carmela Pleitez PA-C Electronically Signed 02/06/13 1616 LAKESHIA Barlow MOE GAY ADM:01/30/13 [id number] 01/31/13 DIS [place] DISCHARGE SUMMARY [id number] [facility] LAKESHIA Barlow ES B [facility] Jay Gambino MD R THIS REPORT IS [...] + + + +---------+ + + | [place]-3 Fatty | CAPS, one capsule by | [...] | | | | | [place], | (Primary Dx); | | | | | [place] [address] | Presence of | | | | | [phone] | permanent cardiac | | | | [...] | | | | | [place], | (Primary Dx); | | | | | [place] [address] | Presence of | | | | | [phone] | permanent cardiac | | | | [...] | | | | | | [place], | | | | | | [place] [address] | | | | | | [phone] | | | | | | | [...] + + | YESSY JONES | [address] | [place] [address] | | | [facility] | [...] + + | [facility] | [address] | [place] [address] | | | [facility] | [...] + + | Glucose | 113 (H)Comment: Slovak | 65 - 99 mg/dL | [facility] [...] + + | YESSY JONES | [address] | [place] [address] | | | [facility] | [...]
--- OUTSIDE RECORDS SUMMARY | ~2019-11-16 | XMS | Encounter Summary ---
Demographics + + + | Address | [address] | | | [place] [address] | + + + | Home Phone [...] + +------+ + | Care Supervisor Painting Shipyard Name | Role | Phone | + [...] | | | | CENTER [address] | [place], [place] | | | | | [place], [place] | [address] | | | | | [address] | | | | | | [phone] | | | +--------+ + + + [...] new doc you can try over at [facility] documented in this encounter Medications at Time [...] + + + +---------+ + + | [place]-3 Fatty | CAPS, one capsule by | [...] Dx); | | | | | [place] [address] | Presence of | | | | | [phone] | permanent cardiac | | | | [...] 2018 | Monitor | | MD [address] [facility] | Interrogation | | | | | [place], | (Primary Dx); | | | | | [place] [address] | Presence of | | | | | [phone] | permanent cardiac | | | | [...] W | | | | | | [place], | | | | | | [place] [address] | | | | | | [phone] | | | | | | | | +--------+ + + + + documented as of this encounter Visit Diagnoses + + | Diagnosis | + + | Situational stress - Primary Other psychological or physical stress, not elsewhere | | classified | + + documented in this encounter
--- OUTSIDE RECORDS SUMMARY | ~2019-11-16 | XMS | Encounter Summary ---
Demographics + + + | Address | [id number] [place] [address] | | | [place] [address] | + + + | Home Phone [...] [place] | | | | | [address] | | + + + + + Care Team Providers + +------+ + | Care Z Os Mainframe Systems Programmer Name | Role | Phone | [...] | | | | | [facility] | [place], [place] | for Health | | | | | C | [address] | and Healing, | | | | | ECHOCARDIOGR | Phone: | Building 1 | | | | | AM, ADULT | [phone] | [place], [place] | | | | | | Fax: | [address] | | | | | | [phone] | Phone: | | | | | | | [phone] | +--------+--------+ + + + + Reason [...] | | | | | | | [place] [address] | | | | | | | Phone: | | | | | | | [phone] | | | | | | | Fax: | | | | | | | [phone] | | +--------+--------+ + + + + Encounter Details +--------+---------+ + + + | Date | Type | Department | Care Team | Description | +--------+---------+ + + + | 02/03/ | Office | Cardiology General | Arlette Drew, | Chest pain (Primary | | 2010 | Visit | at [facility] [address] | MD | Dx); Bradycardia; | | | | [address] Mailcode: | | Pacemaker | | | | [address] | | | | | | Health and Healing, | | | | | | Building | | | | | | Floor [place], [place] | | | | | | [address] | | | | | | [phone] | | | +--------+---------+ + + + [...] per Dr. Drew's note. Farooq Jamil DO Assistant Floor Covering Printer Clinical portfolio consultant/ Division of Cardiovascular Medicine Yajaira Borges, [place] - 02/09/2011 12:59 PM PDT PACEMAKER HISTORY Primary Care Provider: Darion Holden DO Directory Clerk: Arlette Drew MD Moe Sanchez is a [...] chamber permanent pacemaker implantation on 06/14/09 in [place], Chronic smoker, mild DIDIER, bip olar disorder with anxiety who presents for second opinion regarding his syncopal episodes. Pt. started noticing dizzy spells and episodes of syncope about 3 years ago , pacemaker was put at the recommendation of Directory Clerk Dr. Singletary from [place]. [place]. Pt. states lala bhatti was put>1 [...] form tilt table testing but NA at [facility] May need to involve endocrine [...] Dr. Omero DREW MD CARDIOLOGY - GENERAL [address] Mailcode: [facility], 9th Floor [facility] [address] documented [...] [address] Lab) | [facility] | | [facility] [address] [place] [facility] | REGIONAL | | [place] [address] | LABORATORY | + + + + + + + + | Performing | Address | City/State/Zipcode | Phone Number | | Organization | | | | + + + + + | [facility] | [address] | [place] [address] | | | LABORATORY | | | [...] RLB ([address] [facility]) | | | [facility] [place] [address] | | | [place] [address] | | + + + + + + + + | Performing | Address | City/State/Zipcode | Phone Number | | Organization | | | | + + + + + | [facility] | [address] | [place] [address] | | | LABORATORY | | | [...] | | | DEPARTMENT | | | [place] [facility] | | | OF | | [...] | + + + + + | [facility] DEPARTMENT | [address] | [place] [address] | | | PATHOLOGY | [address] [...] DEPT OF | [address] | [place], [place] | | | CARDIOLOGY | [address] | [address] | | + + + + + [...] DEPT OF | [address] | [place], [place] | | | CARDIOLOGY | [address] | [address] | | + + + + + [...] + + + | Please click | [facility] DEPT OF | | on view image for the detailed interpretation from [employer] results. | CARDIOLOGY | + + + + + + + + | Performing | Address | City/State/Zipcode | Phone Number | | Organization | | | | + + + + + | [facility] DEPT OF | [address] | [place], [place] | | | CARDIOLOGY | [address] | [address] | | + + + + + documented in this encounter Visit Diagnoses + + | Diagnosis | + + | Chest pain - Primary Chest pain, unspecified | + + | Bradycardia Other specified cardiac dysrhythmias | + + | Pacemaker Cardiac pacemaker in situ | + + documented in this encounter
--- OUTSIDE RECORDS SUMMARY | ~2019-11-16 | XMS | Encounter Summary ---
Demographics + + + | Address | [address] | | | [place] [address] | + + + | Home Phone [...] Providers + +------+ + | Care Senior Media Planner Name | Role | Phone | + +------+ + | Kirk French MD | PCP | | + +------+ + Encounter Details +--------+ + + + + | Date | Type | Department | Care Team | Description | +--------+ + + + + | 06/03/ | Hospital | [facility] | Conversion | Back pain, | | 2014 | Encounter | CONVERSION DEP [address] | Transaction, | unspecified location | | | | [address] | Provider Unknown | | | | | [place], [place] | [phone] | | | | | [address] | (Fax) | | | | | [phone] | | | +--------+ + + + [...] + + + +---------+ + + | [place]-3 Fatty | CAPS, one capsule by | [...] | | | | | | | #[id number], exp 07/2016 | | | | | [...] Dx); | | | | | [place] [address] | Presence of | | | | | [phone] | permanent cardiac | | | | [...] 2018 | Monitor | | [address] | Interrogation | | | | | [place], | (Primary Dx); | | | | | [place] [address] | Presence of | | | | | [phone] | permanent cardiac | | | | [...] W | | | | | | [address] [place], | | | | | | [place] [address] | | | | | | [phone] | | | | | | | [...]
--- OUTSIDE RECORDS SUMMARY | ~2019-11-16 | XMS | Encounter Summary ---
Demographics + + + | Address | [address] | | | [place] [address] | + + + | Home Phone [...] + + | 05/24/ | Hospital | [facility] | Chi Fang | Unspecified Chest | | 2008 - | Encounter | MEDICAL CENTER | MD Kelsey [address] | Pain | | | | CLINICAL DECISION | CHRISTOPH HERNANDEZ | | | 05/25/ | | [address] | [address] | | | 2008 | | [place], [place] | [phone] | | | | | [address] | | | | | | [phone] | | | +--------+ + + + [...] | Monitor | | MD [address] | Interrogation | | | | | [place], | (Primary Dx); | | | | | [place] [address] | Presence of | | | | | [phone] | permanent cardiac | | | | [...] Interrogation | | | | | [place], | (Primary Dx); | | | | | [place] [address] | Presence of | | | | | [phone] | permanent cardiac | | | | [...] W | | | | | | [place], | | | | | | [place] [address] | | | | | | [phone] | | | | | | | [...] Performed At | + + + | [id number] | | | Page 1 RADIOLOGY | | | [facility] [address]/ | | | [facility] | | | CENTER NAME: [place] [address] | | | | | | | | | DATE OF : 1960 ORDER NUMBER: | | | [id number] EXAM DATE/TIME: 05/25/2009 08:00 A ORDERING PHYSICIAN: [...] | | administration of 14.9 mCi of cxthlcmhzt-58l-xbtbzxd Myoview. Stress | | | images postinjection [...] | | A P | | | TSG/earlene/[id number]/ cc: MD FEMI FOSS, | | | MD AMY SULLIVAN, DO | | + + + + + | Procedure Note | + + | Kalpesh Brown - 07/17/2019 2:13 AM PDT | | [id number] Page 1 | | RADIOLOGY CDU 02839/ | | OPO | | [facility] NAME: P[address] [place] | | [place] [address] | | | | DATE OF : 1960 | | | | ORDER NUMBER: [id number] | | EXAM DATE/TIME: 05/25/2009 08:00 A [...] administration of 14.9 mCi | | of uirlhfbdhd-47r-hawfore Myoview. Stress images postinjection of 47.7 | [...] | A | | P | | TSG/dc/[id number]/ | | cc: ANGELA MARADIAGA MD | | FEMI MARIE MD | | CHI FANG MD | | AMY BANEGAS DO | + + ECHO Complete (05/25/2009 7:50 AM PDT) + + | Specimen | + + | | + + + + + | Narrative | Performed At | + + + | [id number] | | | Page 1 ECHO [facility] NAME: | | | [place] [address] MEDICAL RECORD #: | | | [id number] | | | DATE OF : 1960 ORDER | | | NUMBER: [id number] EXAM DATE/TIME: 05/25/2009 07:34 PERFORMING | | [...] Excursion: | | | 1.89 cm E-F [place]: 0.08 m/s HR: 43.51 BPM AV maxP.11 [...] | | | 0.33 m/s TV Dec [place]: 1.73 m/s2 TV Dec Time: 344.24 ms TV | | | E Bravo: 0.59 m/s TV E/A Ratio: 1.80 TV maxP.40 mmHg TV | | | meanP.44 mmHg TV Vmax: 0.59 m/s TV Vmean: 0.30 m/s TV | | | VTI: 22.88 cm Director Of Sales Marketing: ANTHONY Authenticated by: Edwardo Tee | | | Calros WINKLER Report Date/Time: 05-25-2009 10:19:52 | | + + + + + | Procedure Note | + + | Kevin Rad Conversion - 07/17/2019 2:13 AM PDT [id number] | | Page [address] [place] [address] NAME: [place] | | [address] : ACCOUNT #: | | [id number]: DATE OF : 1960ORDER NUMBER: | | [id number] DATE/TIME: 05/25/2009 07:34PERFORMING PHYSICIAN: Edwardo Gonzalez | [...] mlLAESV Index (A-L): 26.03 ml/m2LAAs A2C: 14.93 [id number] A-L | | A2C: 44.50 mlLALs A2C: 4.25 cmLAAs A4C: 18.42 [id number] A-L A4C: 55.79 mlLALs | | A4C: 5.16 cmAo Diam: 3.91 cmAV Cusp: 2.23 cmLA Diam: 3.79 cmLA/Ao: 0.96%FS: | | 43.37 %EDV(Teich): 146.19 mlEF(Teich): 73.99 %ESV(Teich): 38.01 mlIVSd: 1.57 | | cmIVSs: 1.79 cmLVIDd: 5.48 cmLVIDs: 3.10 cmLVPWd: 1.32 cmLVPWs: 1.79 | | cmSV(Teich): 108.18 mlD-E Excursion: 1.89 cmE-F Klamath: 0.08 m/sHR: 43.51 BPMAV | | maxP.11 mmHgAV meanP.33 mmHgAV Vmax: 1.74 m/Zabrina Vmean: 1.06 m/Zabrina VTI: | | 35.51 cmAVA Vmax: 2.77 cm2AVA (VTI): 2.54 cz6OFCT Dopp: 3.00 l/zpxw0UPND Dopp: | | 6.33 l/minHR: 70.25 BPMLVOT maxP.78 mmHgLVOT meanP.02 mmHgLVSI Dopp: | | 42.76 ml/m2LVSV Dopp: 90.23 mlLVOT Vmax: 1.30 m/sLVOT Vmean: 0.80 m/sLVOT VTI: | | 24.35 cmMV A Bravo: 0.70 m/sMV DecT: 242.46 msMV E Bravo: 0.91 m/sMV E/A Ratio: | | 1.31MV maxP.40 mmHgMV meanP.82 mmHgMV Vmax: 0.92 m/sMV Vmean: 0.37 m/sMV | | VTI: 26.47 cmMVA (VTI): 3.40 gw4Vjbjtl e': 0.08 m/sSeptal E/e': 11.24HR: | | 60.55 BPMPV maxP.04 mmHgPV meanP.39 mmHgPV Vmax: 0.87 m/sPV Vmean: 0.55 | | m/sPV VTI: 19.09 cmRAP: 5 mmHgRVSP: 21.72 mmHgTR maxP.72 mmHgTR Vmax: | | 2.04 m/sTV A Bravo: 0.33 m/sTV Dec [place]: 1.73 m/s2TV Dec Time: 344.24 msTV E Bravo: | | 0.59 m/sTV E/A Ratio: 1.80TV maxP.40 mmHgTV meanP.44 mmHgTV Vmax: 0.59 | | m/sTV Vmean: 0.30 m/sTV VTI: 22.88 cm Director Of Sales Marketing: EMERYuthenticated by: Edwardo Tee | | Carlos [...] | |D-E Excursion: 1.89 cm | |E-F [place]: 0.08 m/s | |HR: 43.51 BPM | [...] A Bravo: 0.33 m/s | |TV Dec [place]: 1.73 m/s2 | |TV Dec Time: 344.24 ms | |TV E Bravo: 0.59 m/s | |TV E/A Ratio: 1.80 | |TV maxP.40 mmHg | |TV meanP.44 mmHg | |TV Vmax: 0.59 m/s | |TV Vmean: 0.30 m/s | |TV VTI: 22.88 cm | | | |Director Of Sales Marketing: KVW | |Authenticated by: Edwardo Gonzalez MD | |Report Date/Time: 05-25-2009 10:19:52 | + + CT Head wo Contrast (05/24/2009 12:58 PM PDT) + + | Specimen | + + | | + + + + + | Narrative | Performed At | + + + | [id number] | | | Page 1 RADIOLOGY | | | [facility] [address]/ | | | [facility] | | | CENTER NAME: [place] [address] | | | | | | | | | DATE OF : 1960 ORDER NUMBER: | | | [id number] EXAM DATE/TIME: 05/24/2009 12:47 P ORDERING PHYSICIAN: [...] | | asymmetrically dense vessel about the [place] of [place]. No | | | hydrocephalus. [...] 08:45 P P P | | | [facility]/tp/[id number]/ cc: MD ANGELA AVENDAÑO MD | | | MD AMY HAM DO | | + + + + + | Procedure Note | + + | Kalpesh Brown - 07/17/2019 2:13 AM PDT | | [id number] Page 1 | | RADIOLOGY CDU 67032/ | | OPO | | [facility] NAME: PINA [place]AY | | [place] [address] | | | | DATE OF : 1960 | | | | ORDER NUMBER: [id number] | | EXAM DATE/TIME: 05/24/2009 12:47 P [...] is no asymmetrically dense vessel about the [place] river of [place]. No | | hydrocephalus. Some [...] | P | | P | | [facility]/tp/[id number]/ | | cc: VINAY HILL MD | | ANGELA MARADIAGA MD | | FEMI MARIE MD | | AMY BANEGAS DO | + + XR Chest 2 Vws (05/24/2009 11:31 AM PDT) + + | Specimen | + + | | + + + + + | Narrative | Performed At | + + + | [id number] | | | Page 1 RADIOLOGY | | | [facility] [address]/ | | | [facility] | | | CENTER NAME: [place] [address] | | | | | | | | | DATE OF : 1960 ORDER NUMBER: | | | [id number] EXAM DATE/TIME: 05/24/2009 11:19 A ORDERING PHYSICIAN: | | | VINAY HILL ORDER DETAIL: [id number] / / HDI EXAM DESCRIPTION: | | [...] DT: | | | 05/24/2009 05:38 P TSG/cf/[id number]/ cc: VINAY HILL MD | | | MD FEMI FOSS MD AMY | | | P JACQUELINO, DO | | + + + + + | Procedure Note | + + | Kevin, Rad Conversion - 07/17/2019 2:13 AM PDT | | [id number] Page 1 | | RADIOLOGY CDU 73264/ | | OPO | | [facility] NAME: PINA [place] | | [place] [address] | | | | DATE OF : 1960 | | | | ORDER NUMBER: [id number] | | EXAM DATE/TIME: 05/24/2009 11:19 A [...] | P | | P | | [facility]//[id number]/ | | cc: VINAY HILL MD | | ANGELA MARADIAGA MD | | FEMI MARIE MD | | AMY BANEGAS DO | + + documented in this encounter Visit Diagnoses + + | Diagnosis | + + | Chest pain, unspecified | + + documented in this encounter"
--- OUTSIDE RECORDS SUMMARY | ~2019-11-16 | XMS | Encounter Summary ---
Demographics + + + | Address | [address] | | | [place] [address] | + + + | Home Phone [...] Team Providers + +------+ + | Care Penciller Name | Role | Phone | + [...] Provider Unknown | | | | | [place], [place] | [phone] | | | | | [address] | | | | | | [phone] | | | +--------+ + + + [...] + + + +---------+ + + | [place]-3 Fatty | CAPS, one capsule by | [...] Dx); | | | | | [place] [address] | Presence of | | | | | [phone] | permanent cardiac | | | | [...] Dx); | | | | | [place] [address] | Presence of | | | | | [phone] | permanent cardiac | | | | [...] W | | | | | | [place], | | | | | | [place] [address] | | | | | | [phone] | | | | | | | [...] Procedure Note | + + | Kalpesh Borwn - 07/05/2019 4:32 AM PDT This is a non-reportable procedure | | without a radiologist report and isused for image storage only | + + documented in this encounter Visit Diagnoses + + | Diagnosis | + + | Pain Generalized pain | + + documented in this encounter"
--- OUTSIDE RECORDS SUMMARY | ~2019-11-16 | XMS | Encounter Summary ---
Demographics + + + | Address | [address] | | | [place] [address] | + + + | Home Phone [...] Providers + +------+ + | Care Straddle Bug Operator Name | Role | Phone | [...] | | CENTER [address] | [address] | (Primary Dx) | | | | [place], [place] | [place], [place] | | | | | [address] | [address] | | | | | [phone] | | | +--------+ + + + [...] Dx); | | | | | [place] [address] | Presence of | | | | | [phone] | permanent cardiac | | | | [...] Dx); | | | | | [place] [address] | Presence of | | | | | [phone] | permanent cardiac | | | | [...] | | | | | | [place] [address] | | | | | | [phone] | | | | | | | [...] W?MRN: | | | | | | [id number] | | | [id number] | | | his | | | [...] | | | ent/60 | | | [id number] | | | -5586- | | | [...] | | | St. | | | [place] | | | y | | | [...] | | | ext. | | | [address] | | | or go | | [...] | | M.D. | | | Machine Or Machinery Mechanic | | | al | | | [...] | | | | | | [employer] | | | | | [...] [address] | [place] | [phone] | | [facility] | | [address] | | | - LABORATORY | | [...] [address] | [place] | [phone] | | [facility] | | [address] | | | - LABORATORY | | [...] + | [facility] | [address] | [place] | [phone] | | [facility] | | [address] | | | - LABORATORY | | [...] | mL/min/1.73m2 | [facility] | | | [employer] [employer] | RATE,ESTIMATED | | MEDICAL | | | | mL/min/1.00n8Jefb than | | CENTER - | | [...] [address] | [place] | [phone] | | [facility] | | [address] | | | - LABORATORY | | [...] | | Neutrophils | | K/uL | [facility] | | | | | | MEDICAL | | | | | | CENTER - | | | | | | LABORATORY | | + +-------+ + + + | Absolute | 2.10 | 0.60 - 3.20 | [facility] | | | Lymphocytes | | K/uL | [facility] | | | | | | MEDICAL | | | | | | CENTER - | | | | | | LABORATORY | | + +-------+ + + + | Absolute | 0.60 | 0.00 - 1.00 | [facility] | | | Monocytes | | K/uL | [facility] | | | | | | MEDICAL | | | | | | CENTER - | | | | | | LABORATORY | | + +-------+ + + + | Absolute | 0.10 | 0.00 - 0.40 | [facility] | | | Eosinophils | | K/uL | [facility] | | | | | | MEDICAL [...] [address] | [place] | [phone] | | [facility] | | [address] | | | - LABORATORY | | [...] | [address] | [place], [place] | [phone] | | [facility] | | [address] | | | - LABORATORY | | [...] MD | | | | | | ([id number]) on 06/22/2018 | | | | | [...]
--- OUTSIDE RECORDS SUMMARY | ~2019-11-16 | XMS | Encounter Summary ---
Demographics + + + | Address | [address] | | | [place] [address] | + + + | Home Phone [...] Providers + +------+ + | Care Market Superintendent Name | Role | Phone | + +------+ + PCP | Unavailable | + +------+ + Encounter Details +--------+ + + + + | Date | Type | Department | Care Team | Description | +--------+ + + + + | 02/07/ | [facility] | [facility] | Unknown, | | | 1995 | Encounter | MED CTR XRAY [address] | MD Stefany | | | | | [address] [place] | | | | | | [place] [address] | (Fax) | | | | | [phone] | | | +--------+ + + + [...] | Monitor | | MD [address] | Interrogation | | | | | [place], | (Primary Dx); | | | | | [place] [address] | Presence of | | | | | [phone] | permanent cardiac | | | | [...] Interrogation | | | | | [place], | (Primary Dx); | | | | | [place] [address] | Presence of | | | | | [phone] | permanent cardiac | | | | [...] W | | | | | | [place], | | | | | | [place] [address] | | | | | | [phone] | | | | | | | | +--------+ + + + + documented as of this encounter Visit Diagnoses Not on filedocumented in this encounter"
--- OUTSIDE RECORDS SUMMARY | ~2019-11-16 | XMS | Encounter Summary ---
Demographics + + + | Address | [address] | | | [place] [address] | + + + | Home Phone [...] Providers + +------+ + | Care Customer Marketing Assistant Name | Role | Phone [...] + | 12/23/ | Telephone | [facility] | Emmanuel Daniel MD | Other (Needs to know | | 2017 | | GASTROENTEROLOGY | [address], [place] | what he can eat | | | | [address] [place] | [address] [place], [place] | today) | | | | [address] [place], [place] | [address] | | | | | [address] | | | | | | [phone] | | | +--------+ + + + [...] Interrogation | | | | | [place], | (Primary Dx); | | | | | [place] [address] | Presence of | | | | | [phone] | permanent cardiac | | | | [...] Interrogation | | | | | [place], | (Primary Dx); | | | | | [place] [address] | Presence of | | | | | [phone] | permanent cardiac | | | | [...] W | | | | | | [place], | | | | | | [place] [address] | | | | | | [phone] | | | | | | | | +--------+ + + + + documented as of this encounter Visit Diagnoses Not on filedocumented in this encounter"
--- OUTSIDE RECORDS SUMMARY | ~2019-11-16 | XMS | Encounter Summary ---
Demographics + + + | Address | [address] [place] [address] | | | [place] [address] | + + + | Home Phone [...] [place] | | | | | [address] | | + + + + + Care Team Providers + +------+ + | Care Clam Shovel Operator Name | Role | Phone [...] | | | | [address] | [place], [place] | | | | | Mailcode: [place] | [address] | | | | | for Health and | [phone] | | | | | [facility] [address] | | | | | | [place], [place] | | | | | | [address] | | | | | | [phone] | | | +--------+ + + + [...]
--- OUTSIDE RECORDS SUMMARY | ~2019-11-16 | XMS | Encounter Summary ---
Demographics + + + | Address | [address] | | | [place] [address] | + + + | Home Phone [...] Providers + +------+ + | Care Camera Engineer Name | Role | Phone | [...] + + | 12/21/ | Office | [facility] | [place], | Chest pain (Primary | | 2013 | Visit | CARDIOLOGY [address] | [address] | Dx); Symptomatic | | | | [place], | [place], | PVCs; | | | | [place] [address] | [place] [address] | Hyperlipidemia; | | | | [phone] | [phone] | Hypertension; | | | | | [...] this time to see a specialist in [place] and he was to follow up with [...] MOUTH EVERY DAY 30 table t 5 [place]-3 Fatty Acids (SALMON OIL-1000 PO) CAPS, one [...] to go back in 3 days to [place] for an attempt of ablation under general [...] weeks. He is in class II of [place] [employer] funct ional class. There are [...] tolic function, LVEF 65 to 70%. 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 documented in this encounter Plan of Treatment +--------+ + + + + | Date | Type | Specialty | Care Team | Description | +--------+ + + + + | 11/20/ | Implant | Cardiology | Daljit Singletary, | Remote Device | | 2019 | Monitor | | MD [facility] | Interrogation | | | | | [place], | (Primary Dx); | | | | | [place] [address] | Presence of | | | | | [phone] | permanent cardiac | | | | [...] Interrogation | | | | | [place], | (Primary Dx); | | | | | [place] [address] | Presence of | | | | | [phone] | permanent cardiac | | | | [...] W | | | | | | [place], | | | | | | [place] [address] | | | | | | [phone] | | | | | | | [...] of unspecified type of vessel, | | campo or graft | + + documented in this encounter
--- OUTSIDE RECORDS SUMMARY | ~2019-11-16 | XMS | Encounter Summary ---
Demographics + + + | Address | [address] | | | [place] [address] | + + + | Home Phone [...] Providers + +------+ + | Care Concrete Foreman Name | Role | Phone | [...] | RN | | | | | [place], | | | | | | [place] [address] | | | | | | [phone] | | | +--------+ + + + [...] Dx); | | | | | [place] [address] | Presence of | | | | | [phone] | permanent cardiac | | | | [...] Dx); | | | | | [place] [address] | Presence of | | | | | [phone] | permanent cardiac | | | | [...] | | | | | | [place], | | | | | | [place] [address] | | | | | | [phone] | | | | | | | | +--------+ + + + + documented as of this encounter Visit Diagnoses Not on filedocumented in this encounter"
--- OUTSIDE RECORDS SUMMARY | ~2019-11-16 | XMS | Encounter Summary ---
Demographics + + + | Address | [address] | | | [place] [address] | + + + | Home Phone [...] Providers + +------+ + | Care Hot Roll Laminator Name | Role | Phone | + [...] | RN | | | | | [place], | | | | | | [place] [address] | | | | | | [phone] | | | +--------+ + + + [...] Dx); | | | | | [place] [address] | Presence of | | | | | [phone] | permanent cardiac | | | | [...] Dx); | | | | | [place] [address] | Presence of | | | | | [phone] | permanent cardiac | | | | [...] | | | | | | [place] [address] | | | | | | [phone] | | | | | | | | +--------+ + + + + documented as of this encounter Visit Diagnoses Not on filedocumented in this encounter"
--- OUTSIDE RECORDS SUMMARY | ~2019-11-16 | XMS | Encounter Summary ---
Demographics + + + | Address | [address] | | | [place] [address] | + + + | Home Phone [...] Team Providers + +------+ + | Care Pad Extractor Tender Name | Role | Phone | [...] Refill | | 2013 | | [facility] | DO [address] | | | | | [address] | [place] | | | | | [place] | [address] | | | | | [address] | | | | | | [phone] | | | +--------+--------+ + + + [...] Dx); | | | | | [place] [address] | Presence of | | | | | [phone] | permanent cardiac | | | | [...] Dx); | | | | | [place] [address] | Presence of | | | | | [phone] | permanent cardiac | | | | [...] | | | | | | [place] [address] | | | | | | [phone] | | | | | | | | +--------+ + + + + documented as of this encounter Visit Diagnoses Not on filedocumented in this encounter"
--- OUTSIDE RECORDS SUMMARY | ~2019-11-16 | XMS | Encounter Summary ---
Demographics + + + | Address | [address] | | | [place] [address] | + + + | Home Phone [...] Team Providers + +------+ + | Care Chamber Worker Name | Role | Phone | [...] + + | 06/25/ | Office | [facility] | [place], | SINUS BRADYCARDIA | | 2013 | Visit | CARDIOLOGY [address] | [address] | (Primary Dx); | | | | [facility] [place], | [facility] [place], | Symptomatic PVCs; | | | | [place] [address] | [place] [address] | Coronary artery | | | | [phone] | [phone] | disease; | | | | | [...] time, he was admitted over observation at [facility] for a chest pain. Aortogram [...] needed for Chest pain. 25 tablet 12 [place]-3 Fatty Acids (SALMON OIL-1000 PO) CAPS, one [...] HGBEX 16.1 01/25/2014 I reviewed records from [facility] for emergency department visit o n 05/26/2014 [...] completely be ruled out. [facility] 12/25/13, shows non critical coronary [...] to go back in 3 days to [place] for an attempt of ablation under general [...] made to ensure accuracy; however, inadvertent computerized cath lab tech errors may be pre sent. Electronically signed [...] Monitor | | MD [address] | Interrogation | | | | | [place], | (Primary Dx); | | | | | [place] [address] | Presence of | | | | | [phone] | permanent cardiac | | | | [...] Interrogation | | | | | [place], | (Primary Dx); | | | | | [place] [address] | Presence of | | | | | [phone] | permanent cardiac | | | | [...] | | | | | | [facility] [place], | | | | | | [place] [address] | | | | | | [phone] | | | | | | | | +--------+ + + + + documented as of this encounter Visit Diagnoses + + | Diagnosis | + + | SINUS BRADYCARDIA - Primary Sinoatrial node dysfunction | + + | Symptomatic PVCs Other premature beats | + + | Coronary artery disease Coronary atherosclerosis of unspecified type of vessel, | | alturas or graft | + + | Hypertension Unspecified essential hypertension | + + | Syncope Syncope and collapse | + + | Hyperlipidemia Other and unspecified hyperlipidemia | + + documented in this encounter
--- OUTSIDE RECORDS SUMMARY | ~2019-11-16 | XMS | Encounter Summary ---
Demographics + + + | Address | [address] | | | [place] [address] | + + + | Home Phone [...] Providers + +------+ + | Care Clinical Coder Name | Role | Phone | + +------+ + PCP | Unavailable | + +------+ + Encounter Details +--------+ + + + + | Date | Type | Department | Care Team | Description | +--------+ + + + + | [facility] | Emmanuel Daniel MD | | | 2006 | Encounter | MED CTR GENERIC OP | [address] | | | | | CONV DEPT [address] | [address] | | | | | [place], | [address] | | | | | [place] [address] | | | | | | [phone] | | | +--------+ + + + [...] Dx); | | | | | [place] [address] | Presence of | | | | | [phone] | permanent cardiac | | | | [...] Dx); | | | | | [place] [address] | Presence of | | | | | [phone] | permanent cardiac | | | | [...] | | | | | | [place] [address] | | | | | | [phone] | | | | | | | | +--------+ + + + + documented as of this encounter Visit Diagnoses Not on filedocumented in this encounter"
--- OUTSIDE RECORDS SUMMARY | ~2019-11-16 | XMS | Encounter Summary ---
Demographics + + + | Address | [address] | | | [place] [address] | + + + | Home Phone [...] Team Providers + +------+ + | Care Herbarium Worker Name | Role | Phone | + +------+ + PCP | Unavailable | + +------+ + Encounter Details +--------+ + + + + | Date | Type | Department | Care Team | Description | +--------+ + + + + | 09/29/ | Hospital | [facility] | | | | 1995 | Encounter | MED CTR EMERGENCY | | | | | | [place] [address] | | | | | | [place] | | | | | | [address] | | | | | | [phone] | | | +--------+ + + + [...] Dx); | | | | | [place] [address] | Presence of | | | | | [phone] | permanent cardiac | | | | [...] Dx); | | | | | [place] [address] | Presence of | | | | | [phone] | permanent cardiac | | | | [...] | | | | | | [place] [address] | | | | | | [phone] | | | | | | | | +--------+ + + + + documented as of this encounter Visit Diagnoses Not on filedocumented in this encounter"
--- OUTSIDE RECORDS SUMMARY | ~2019-11-16 | XMS | Encounter Summary ---
Demographics + + + | Address | [address] | | | [place] [address] | + + + | Home Phone [...] + + + + | 09/08/ | [facility] | [facility] | Naresh Mckeon | | | 1998 | Encounter | MED CTR SLEEP | MD Chaya [address] | | | | | CENTER [address] | [address] | | | | | [place] | [place] [address] | | | | | [address] | [phone] | | | | | [phone] | | | +--------+ + + + [...] Interrogation | | | | | [facility], | (Primary Dx); | | | | | [place] [address] | Presence of | | | | | [phone] | permanent cardiac | | | | [...] Interrogation | | | | | [place], | (Primary Dx); | | | | | [place] [address] | Presence of | | | | | [phone] | permanent cardiac | | | | [...] W | | | | | | [place], | | | | | | [place] [address] | | | | | | [phone] | | | | | | | | +--------+ + + + + documented as of this encounter Visit Diagnoses Not on filedocumented in this encounter"
--- OUTSIDE RECORDS SUMMARY | ~2019-11-16 | XMS | Encounter Summary ---
Demographics + + + | Address | [address] | | | [place] [address] | + + + | Home Phone [...] + +------+ + | Care Venetian Blind Assembler Name | Role | Phone | [...] [place] | | | | | | [address] | | | | | | [phone] | | | +--------+ + + + [...] Monitor | | MD [address] | Interrogation | | | | | [place], | (Primary Dx); | | | | | [place] [address] | Presence of | | | | | [phone] | permanent cardiac | | | | [...] Monitor | | MD [address] | Interrogation | | | | | [place], | (Primary Dx); | | | | | [place] [address] | Presence of | | | | | [phone] | permanent cardiac | | | | [...] | | | | | | [place] [address] | | | | | | [phone] | | | | | | | | +--------+ + + + + documented as of this encounter Visit Diagnoses Not on filedocumented in this encounter"
--- OUTSIDE RECORDS SUMMARY | ~2019-11-16 | XMS | Encounter Summary ---
Demographics + + + | Address | [address] | | | [place] [address] | + + + | Home Phone [...] Providers + +------+ + | Care Sql Consultant Name | Role | Phone | [...] [address] | | | | | [address] | [place] | | | | | [phone] | [address] | | | | | | [phone] | | | | | | | [...] 2018 | Monitor | | [address] | Interrogation | | | | | [place], | (Primary Dx); | | | | | [place] [address] | Presence of | | | | | [phone] | permanent cardiac | | | | [...] 2018 | Monitor | | [address] | Interrogation | | | | | [place], | (Primary Dx); | | | | | [place] [address] | Presence of | | | | | [phone] | permanent cardiac | | | | [...] | | | | | | [place], | | | | | | [place] [address] | | | | | | [phone] | | | | | | | [...]
--- OUTSIDE RECORDS SUMMARY | ~2019-11-16 | XMS | Encounter Summary ---
Demographics + + + | Address | [address] | | | [place] [address] | + + + | Home Phone [...] Team Providers + +------+ + | Care Item Repair Manager Name | Role | Phone | + +------+ + PCP | Unavailable | + +------+ + Encounter Details +--------+ + + + + | Date | Type | Department | Care Team | Description | +--------+ + + + + | 02/01/ | [facility] | [facility] | Evan Gandara MD | | | 2008 - | Encounter | MED CTR MED ONC | [address] [facility] | | | | | [address] [place] | [place] | | | 02/06/ | | [place] [address] | [address] | | | 2008 | | [phone] | | | +--------+ + + + [...] 2019 | Monitor | | [address] | Interrogation | | | | | [place], | (Primary Dx); | | | | | [place] [address] | Presence of | | | | | [phone] | permanent cardiac | | | | [...] | MD [facility] | Interrogation | | | | | [place], | (Primary Dx); | | | | | [place] [address] | Presence of | | | | | [phone] | permanent cardiac | | | | [...] | | | | | | [place] [address] | | | | | | [phone] | | | | | | | | +--------+ + + + + documented as of this encounter Visit Diagnoses Not on filedocumented in this encounter"
--- OUTSIDE RECORDS SUMMARY | ~2019-11-16 | XMS | Encounter Summary ---
Demographics + + + | Address | [address] | | | [place] [address] | + + + | Home Phone [...] Providers + +------+ + | Care Talent Director Name | Role | Phone | + +------+ + | Kirk French MD | PCP | | + +------+ + Encounter Details +--------+---------+ + + + | Date | Type | Department | Care Team | Description | +--------+---------+ + + + | 12/24/ | Surgery | [facility] | Emmanuel Daniel MD | EGD | | 2018 | | MED CTR MP INTRA OP | [address], [place] | | | | | [address] | [address] [place], [place] | | | | | [place], [place] | [address] | | | | | [address] | | | | | | [phone] | | | +--------+---------+ + + + [...] + + + +---------+ + + | [place]-3 Fatty | CAPS, one capsule by | [...] Dx); | | | | | [place] [address] | Presence of | | | | | [phone] | permanent cardiac | | | | [...] Dx); | | | | | [place] [address] | Presence of | | | | | [phone] | permanent cardiac | | | | [...] W | | | | | | [address] [place], | | | | | | [place] [address] | | | | | | [phone] | | | | | | | [...] + + | Performed at: 01 - [facility] [address], | REFERENCE LAB | | [place], [place] [id number] Fishing Lure Assembler: William Andrew MD, Phone: | ARSH CASTANON | | [phone] | | + + + + + + + + | Performing | Address | City/State/Zipcode | Phone Number | | Organization | | | | + + + + + | REFERENCE LAB | [address] | [place] [address] | [phone] | | [facility] | [address] | [place] | [phone] | | [facility] | | [address] | | | - LABORATORY | | [...] + | [facility] | [address] | [place] | [phone] | | [facility] | | [address] | | | - LABORATORY | | [...] | | 1 | | | [facility] | | | | | | MEDICAL [...] ST. | [address] | [place], [place] | [phone] | | [facility] | | [address] | | | - LABORATORY | | [...] + + | Performed at: 01 - [facility] [address], | REFERENCE LAB | | [place], [place] [id number] Fishing Lure Assembler: William Andrew MD, Phone: | [facility] | | [phone] | | + + + + + + + + | Performing | Address | City/State/Zipcode | Phone Number | | Organization | | | | + + + + + | REFERENCE LAB | [address] | [place] [address] | [phone] | | [facility] | Drive [...] ST. | [address] | [place], [place] | [phone] | | [facility] | | [address] | | | - LABORATORY | | [...] [address] | [place] | [phone] | | [facility] | | [address] | | | - LABORATORY | | [...] [address] | [place] | [phone] | | [facility] | | [address] | | | - LABORATORY | | [...] Difficile | Negative for toxigenic | | MICHELLE | | | GDH Antigen | [...] + | [facility] | [address] | [place], [place] | [phone] | | [facility] | | [address] | | | - LABORATORY | | [...] | [address] | [place] | [phone] | | [facility] | | [address] | | | - LABORATORY | | | | + + + + + EGD (12/24/2017 1:19 PM PST) + + | Specimen | + + | | + + + + -+ | Narrative | Performed At | + + -+ | | [facility] | | GastroenterologyPatient Name: Moe Venegas Date: 12/24/2017 | [facility] | | 1:19 PMMRN: [id number] #: [id number] of : | | | 9Admit Type: AmbulatoryAge: 57Room: [facility] 01Gender: MaleNote | | | Status: FinalizedAttending MD: Emmanuel Daniel , [facility]cedure: | | | Upper GI endoscopyIndications: Diarrhea, Weight | | | lossProviders: Emmanuel Daniel MD, Maria Isabel Morris RN, | | | Kim Hicks, Worm Picker, [place] | | | Sapna Barakat MD (Anesthesia [...] the anesthesiologist and | | | the hydraulic technician in the endoscopy suite. Mental Status [...] PMScope Out: 1:31:13 PM | | | , [address] [facility] | | | [place] [address] | | | - Discharge patient to [...] |Scope Out: 1:31:13 PM | | | , [address] [facility], [place], [place] | | | [address] | | + + -+ + +---------+ [...] 12/24/2017 | [facility] | | 1:17 PMMRN: [id number] #: [id number] of : | | | 9Admit Type: AmbulatoryAge: 57Room: [facility] 01Gender: MaleNote | | | Status: FinalizedAttending MD: Emmanuel Daniel , [facility]rocedure: | | | ColonoscopyIndications: Clinically significant diarrhea of | | | unexplained originProviders: Emmanuel Daniel MD, Maria Isabel | | | Arturo, [place], Kim Hicks, Worm Picker, | | | Jarett Barakat MD (Anesthesia [...] | | | the anesthesiologist and the hydraulic technician in the endoscopy suite. | | [...] In: 1:32:55 PMScope Out: 1:48:57 PM [facility] | | | [address] [address] | | | [phone] | | | - Await pathology results. [...] |Scope Out: 1:48:57 PM | | | , [address] [place] [address] | | | [address] | | + + -+ + +---------+ [...] Received in formalin labeled | | | "Fiorella Nelson" and labeled "B, left colon bx" on the | | | requisition are five pink-lin tissue fragments measuring from 0.2-09.9 | | | cm, submitted, all in (B1). C. Received in formalin labeled | | | "Keisha Nelson" and labeled "C, bx TI" on the [...] developed and its performance characteristics determined by [facility] | | | [facility]. It has not been cleared or approved by the U.S. Food | | | and Drug Administration. The FDA has determined that such clearance | | | or approval is not necessary. This test is used for clinical | | | purposes. It should not be regarded as investigational or for | | | research. [facility] is certified under the Clinical | | | Laboratory Improvement Amendments of 1988 (CLIA) as qualified to | | | perform high complexity clinical laboratory testing. This assay | | | has not been validated for specimens that have been decalcified. | | | PERFORMING LABORATORY: Tissue processing and slide preparation were | | | performed by [facility], [address], [facility] | | | [place] [address] (Hoop Punch And Coiler Operator: Evan Frausto M.D. CLIA#: | | | [id number]). Professional interpretation was performed by [facility] | | | [facility], [address], [place] [address] | | | (Hoop Punch And Coiler Operator: Evan Frausto M.D.; CLIA#: [id number]). | | | Diagnostician: Rafael Bales MD [...]
--- OUTSIDE RECORDS SUMMARY | ~2019-11-16 | XMS | Encounter Summary ---
Demographics + + + | Address | [address] | | | [place] [address] | + + + | Home Phone [...] Providers + +------+ + | Care Web Offset Press Feeder Name | Role | Phone [...] | Emmanuel E, MD | [address] | | | | | unspecified | [address] | [place], | | | | | type | [place], [place] | [place] | | | | | Abdominal | [address] [place] | [address] | | | | | cramping | [place], [place] | Phone: | | | | | Generalized | [address] | [phone] | | | | | abdominal | Phone: | Fax: | | | | | pain | [phone] | [phone] | | | | | Procedures | Fax: | | | | | | CT Abdomen | [phone] | | | | | | Pelvis [...] 2019 | | GASTROENTEROLOGY | [address], [place] | (stomach cramps and | | | | [address] [place] | [address] [place], [place] | liquid stool) | | | | [address] [place], [place] | [address] | | | | | [address] | | | | | | [phone] | | | +--------+ + + + [...] Dx); | | | | | [place] [address] | Presence of | | | | | [phone] | permanent cardiac | | | | [...] | 2018 | Monitor | | [address] | Interrogation | | | | | [place], | (Primary Dx); | | | | | [place] [address] | Presence of | | | | | [phone] | permanent cardiac | | | | [...] W | | | | | | [place], | | | | | | [place] [address] | | | | | | [phone] | | | | | | | [...]
--- OUTSIDE RECORDS SUMMARY | ~2019-11-16 | XMS | Encounter Summary ---
Demographics + + + | Address | [address] | | | [place] [address] | + + + | Home Phone [...] Team Providers + +------+ + | Care Grants Officer Name | Role | Phone | [...] + | 06/23/ | Office | [facility] | Sil[place], | Ascending thoracic | | 2016 | Visit | CARDIOLOGY [address] | [address] | aortic aneurysm | | | | [place], | [place], | [facility] (Primary Dx); | | | | [place] [address] | [place] [address] | Coronary artery | | | | [phone] | [phone] | disease involving | | | | [...] in office in 6 months. hgabby, Janeen, PHYSICAL BIOCHEMIST - 06/23/2016 12:45 PM PDT PATIENT NAME: [...] by mouth every evening 90 tablet 3 [facility] [...] 3rd dose, call 911 100 tablet 3 [place]-3 Fatty Acids (SALMON OIL-1000 PO) CAPS, one [...] RESULTS reviewed during visit today primarily from [facility]: LIPID Lab Results Component Value Date TRIG [...] ASSESSMENT: 1. Non-critical Coronary artery disease involving [place] coronary artery of [place] heart [facility] angina pectoris: A. Normal exercise sestamibi stress [...] pain. He is in class I-II of [place] [facility] n functional class. There are [...] to go back in 3 days to [place] for an attempt of ablation under general [...] this chart may have been created with Reebonz voice recognition software. Occasi onal wrong-word or [...] | Monitor | | MD [address] [place] | Interrogation | | | | | [place], | (Primary Dx); | | | | | [place] [address] | Presence of | | | | | [phone] | permanent cardiac | | | | [...] | Monitor | | MD [address] [place] | Interrogation | | | | | [place], | (Primary Dx); | | | | | [place] [address] | Presence of | | | | | [phone] | permanent cardiac | | | | [...] | | | | | | [place] [address] | | | | | | [phone] | | | | | | | [...] the | | | | PDT | che[place]is coronary | results section. | | | [...] MD | | | | | | ([id number]) on 06/23/2016 | | | | | [...]
--- OUTSIDE RECORDS SUMMARY | ~2019-11-16 | XMS | Encounter Summary ---
Demographics + + + | Address | [address] | | | [place] [address] | + + + | Home Phone [...] Team Providers + +------+ + | Care Religion Instructor Name | Role | Phone | [...] | 10/26/ | Refill | [facility] | Kirk French | Medication Refill | | 2019 | | GASTROENTEROLOGY | MD [address] | | | | | [address] | [address] | | | | | [address] [place], [place] | [place] [address] | | | | | [address] | [phone] | | | | | [phone] | | | +--------+--------+ + + + [...] 2019 | Monitor | | [place] [address] [facility] | Interrogation | | | | | [place], | (Primary Dx); | | | | | [place] [address] | Presence of | | | | | [phone] | permanent cardiac | | | | [...] Dx); | | | | | [place] [address] | Presence of | | | | | [phone] | permanent cardiac | | | | [...] | | | | | | [place], | | | | | | [place] [address] | | | | | | [phone] | | | | | | | | +--------+ + + + + documented as of this encounter Visit Diagnoses Not on filedocumented in this encounter"
--- OUTSIDE RECORDS SUMMARY | ~2019-11-16 | XMS | Encounter Summary ---
Demographics + + + | Address | [address] | | | [place] [address] | + + + | Home Phone [...] + +------+ + | Care Account Services Manager Name | Role | Phone [...] + | 08/23/ | Telephone | [facility] | AnshujohnsoncherelleDaljit, | Other (edema is | | 2015 | | CARDIOLOGY [address] | MD [address] | blood clots) | | | | [place], | [place], | | | | | [place] [address] | [place] [address] | | | | | [phone] | [phone] | | | | | | | [...] Dx); | | | | | [place] [address] | Presence of | | | | | [phone] | permanent cardiac | | | | [...] 2018 | Monitor | | [address] | Interrogation | | | | | [place], | (Primary Dx); | | | | | [place] [address] | Presence of | | | | | [phone] | permanent cardiac | | | | [...] W | | | | | | [place], | | | | | | [place] [address] | | | | | | [phone] | | | | | | | | +--------+ + + + + documented as of this encounter Visit Diagnoses Not on filedocumented in this encounter"
--- OUTSIDE RECORDS SUMMARY | ~2019-11-16 | XMS | Encounter Summary ---
Demographics + + + | Address | [address] | | | [place] [address] | + + + | Home Phone [...] Providers + +------+ + | Care Furnace Operator Oil Or Gas Name | Role | Phone | + +------+ + PCP | Unavailable | + +------+ + Encounter Details +--------+ + + + + | Date | Type | Department | Care Team | Description | +--------+ + + + + | 02/01/ | [facility] | [facility] | Evan Gandara MD | | | 2008 - | Encounter | MED CTR MED ONC | [address] [facility] | | | | | [address] [place] | [place] | | | 02/06/ | | [place] [address] | [address] | | | 2008 | | [phone] | | | +--------+ + + + [...] 2019 | Monitor | | [address] | Interrogation | | | | | [place], | (Primary Dx); | | | | | [place] [address] | Presence of | | | | | [phone] | permanent cardiac | | | | [...] Dx); | | | | | [place] [address] | Presence of | | | | | [phone] | permanent cardiac | | | | [...] | | | | | | [place] [address] | | | | | | [phone] | | | | | | | | +--------+ + + + + documented as of this encounter Visit Diagnoses Not on filedocumented in this encounter"
--- OUTSIDE RECORDS SUMMARY | ~2019-11-16 | XMS | Encounter Summary ---
Demographics + + + | Address | [address] | | | [place] [address] | + + + | Home Phone [...] Providers + +------+ + | Care Assistant Manager Trainee Name | Role | Phone | [...] Provider Unknown | | | | | [place], [place] | [phone] | | | | | [address] | | | | | | [phone] | | | +--------+ + + + [...] + + + +---------+ + + | [place]-3 Fatty | CAPS, one capsule by | [...] | Monitor | | MD [address] [place] | Interrogation | | | | | [place], | (Primary Dx); | | | | | [place] [address] | Presence of | | | | | [phone] | permanent cardiac | | | | [...] | Monitor | | MD [address] [place] | Interrogation | | | | | [place], | (Primary Dx); | | | | | [place] [address] | Presence of | | | | | [phone] | permanent cardiac | | | | [...] W | | | | | | [place], | | | | | | [place] [address] | | | | | | [phone] | | | | | | | [...]
--- OUTSIDE RECORDS SUMMARY | ~2019-11-16 | XMS | Encounter Summary ---
Demographics + + + | Address | [address] | | | [place] [address] | + + + | Home Phone [...] Team Providers + +------+ + | Care Airdox Fitter Name | Role | Phone | [...] | | | | [place] | [address] | | | | | [address] | | | | | | [phone] | | | +--------+ + + + [...] Dx); | | | | | [place] [address] | Presence of | | | | | [phone] | permanent cardiac | | | | [...] Dx); | | | | | [place] [address] | Presence of | | | | | [phone] | permanent cardiac | | | | [...] W | | | | | | [place], | | | | | | [place] [address] | | | | | | [phone] | | | | | | | | +--------+ + + + + documented as of this encounter Visit Diagnoses Not on filedocumented in this encounter"
--- OUTSIDE RECORDS SUMMARY | ~2019-11-16 | XMS | Encounter Summary ---
Demographics + + + | Address | [address] | | | [place] [address] | + + + | Home Phone [...] Providers + +------+ + | Care Marine Pipefitter Name | Role | Phone | [...] | SLEEP DISORDER [address] | [address] | Dx) | | | | [address] [place] | [place] | | | | | [place] [address] | [address] | | | | | [phone] | | | +--------+---------+ + + + [...] pillows obtained from: [facility] [place] pressure is: 13 cm CPAP download shows [...] to go to [facility] [place] to have them download his memory card. I will readjust his pressure, if necessary. I will call him with the results. He is to work toward wearing his CPAP 100% of the time he is asleep. I will follow up again in 1 month, sooner prn. Fifteen minutes were spent [id number], wi th the majority of time spent [...] | Monitor | | MD [address] | Interrogation | | | | | [place], | (Primary Dx); | | | | | [place] [address] | Presence of | | | | | [phone] | permanent cardiac | | | | [...] | Monitor | | MD [address] | Interrogation | | | | | [place], | (Primary Dx); | | | | | [place] [address] | Presence of | | | | | [phone] | permanent cardiac | | | | | | pacemaker; | | | | | | Sinoatrial node | | | | | | dysfunction (HCC) | | | | | | with symptomatic | | | | | | bradycardia | +--------+ + + + + | 01/01/ | Office | Cardiology | [place], | | | 2019 | Visit | | PARISA Vernon [address] | | | | | | [place], | | | | | | [place] [address] | | | | | | [phone] | | | | | | | | +--------+ + + + + documented as of this encounter Visit Diagnoses + + | Diagnosis | + + | DIDIER on CPAP - Primary Obstructive sleep apnea (adult) (pediatric) | + + documented in this encounter
--- OUTSIDE RECORDS SUMMARY | ~2019-11-16 | XMS | Encounter Summary ---
Demographics + + + | Address | [address] [place] [address] | | | [place] [address] | + + + | Home Phone [...] [place] | | | | | [address] | | + + + + + Care Team Providers + +------+ + | Care Relay Mechanic Name | Role | Phone | [...] | | | | | Unintentiona | [place], [place] | | | | | | l weight | [address] | | | | | | loss | Phone: | | | | | | Procedures | [phone] | | | | | | CONSULT TO | Fax: | | | | | | NON - IVETTE | [phone] | | | | | | PROVIDER [...] Center at [facility] [address] | MD [address] | normal, recommend | | | | [address] | [place], [place] | hyoscyamine) | | | | Mailcode: [place] | [address] | | | | | for Health and | [phone] | | | | | [facility] [address] | | | | | | [place], [place] | | | | | | [address] | | | | | | [phone] | | | +--------+ + + + [...]
--- OUTSIDE RECORDS SUMMARY | ~2019-11-16 | XMS | Encounter Summary ---
Demographics + + + | Address | [address] | | | [place] [address] | + + + | Home Phone [...] Team Providers + +------+ + | Care Course Developer Name | Role | Phone | [...] [address] | | | | | [place], | [place], | | | | | [place] [address] | [place] [address] | | | | | [phone] | [phone] | | | | | | | [...] | Monitor | | MD [address] | Interrogation | | | | | [place], | (Primary Dx); | | | | | [place] [address] | Presence of | | | | | [phone] | permanent cardiac | | | | [...] Interrogation | | | | | [place], | (Primary Dx); | | | | | [place] [address] | Presence of | | | | | [phone] | permanent cardiac | | | | [...] | | | | | | [place], | | | | | | [place] [address] | | | | | | [phone] | | | | | | | [...]
--- OUTSIDE RECORDS SUMMARY | ~2019-11-16 | XMS | Encounter Summary ---
Demographics + + + | Address | [address] | | | [place] [address] | + + + | Home Phone [...] Providers + +------+ + | Care Records Custodian Name | Role | Phone | [...] Refill | | 2013 | | MEDICINE ONIDA | DO [address] | | | | | [address] | [place] | | | | | [place] | [address] | | | | | [address] | | | | | | [phone] | | | +--------+--------+ + + + [...] | Monitor | | MD [address] | Interrogation | | | | | [place], | (Primary Dx); | | | | | [place] [address] | Presence of | | | | | [phone] | permanent cardiac | | | | [...] | Monitor | | MD [address] | Interrogation | | | | | [place], | (Primary Dx); | | | | | [place] [address] | Presence of | | | | | [phone] | permanent cardiac | | | | [...] | | | | | | [place] [address] | | | | | | [phone] | | | | | | | | +--------+ + + + + documented as of this encounter Visit Diagnoses Not on filedocumented in this encounter"
--- OUTSIDE RECORDS SUMMARY | ~2019-11-16 | XMS | Encounter Summary ---
Demographics + + + | Address | [address] | | | [place] [address] | + + + | Home Phone [...] Eva R[place]SE | | | | | [place], [place] | [address] | | | | | [address] | [place] [address] | | | | | [phone] | [phone] | | | | | | | [...] | Monitor | | MD [address] | Interrogation | | | | | [place], | (Primary Dx); | | | | | [place] [address] | Presence of | | | | | [phone] | permanent cardiac | | | | [...] Interrogation | | | | | [place], | (Primary Dx); | | | | | [place] [address] | Presence of | | | | | [phone] | permanent cardiac | | | | [...] | | | | | | [place] [address] | | | | | | [phone] | | | | | | | [...]
--- OUTSIDE RECORDS SUMMARY | ~2019-11-16 | XMS | Encounter Summary ---
Demographics + + + | Address | [address] | | | [place] [address] | + + + | Home Phone [...] Providers + +------+ + | Care Industrial Relations Representative Name | Role | Phone | [...] Provider Unknown | | | | | [place], [place] | [phone] | | | | | [address] | | | | | | [phone] | | | +--------+ + + + [...] + + + +---------+ + + | Ap[place]-3 Fatty | CAPS, one capsule by | [...] Dx); | | | | | [place] [address] | Presence of | | | | | [phone] | permanent cardiac | | | | [...] | 2018 | Monitor | | [address] [place] | Interrogation | | | | | [place], | (Primary Dx); | | | | | [place] [address] | Presence of | | | | | [phone] | permanent cardiac | | | | [...] W | | | | | | [place], | | | | | | [place] [address] | | | | | | [phone] | | | | | | | [...]
--- OUTSIDE RECORDS SUMMARY | ~2019-11-16 | XMS | Encounter Summary ---
Demographics + + + | Address | [address] | | | [place] [address] | + + + | Home Phone [...] Team Providers + +------+ + | Care Dermatology Nurse Practitioner Name | Role | Phone | + +------+ + PCP | Unavailable | + +------+ + Encounter Details +--------+ + + + + | Date | Type | Department | Care Team | Description | +--------+ + + + + | 09/08/ | [facility] | [facility] | Naresh Mckeon | | | 1998 | Encounter | MED CTR SLEEP | MD Chaya [address] | | | | | CENTER [address] | [place] | | | | | [place] | [place] [address] | | | | | [address] | [phone] | | | | | [phone] | | | +--------+ + + + [...] Dx); | | | | | [place] [address] | Presence of | | | | | [phone] | permanent cardiac | | | | [...] Dx); | | | | | [place] [address] | Presence of | | | | | [phone] | permanent cardiac | | | | [...] | | | | | | [place], | | | | | | [place] [address] | | | | | | [phone] | | | | | | | | +--------+ + + + + documented as of this encounter Visit Diagnoses Not on filedocumented in this encounter"
--- OUTSIDE RECORDS SUMMARY | ~2019-11-16 | XMS | Encounter Summary ---
Demographics + + + | Address | [address] | | | [place] [address] | + + + | Home Phone [...] Team Providers + +------+ + | Care Perianesthesia Nurse Name | Role | Phone | [...] | CARDIOLOGY [address] | [address] [place] | Interrogation | | | | [place], | [place], | (Primary Dx); | | | | [place] [address] | [place] [address] | Presence of | | | | [phone] | [phone] | permanent cardiac | | | | [...] Dx); | | | | | [place] [address] | Presence of | | | | | [phone] | permanent cardiac | | | | [...] 2018 | Monitor | | [address] [place] | Interrogation | | | | | [place], | (Primary Dx); | | | | | [place] [address] | Presence of | | | | | [phone] | permanent cardiac | | | | [...] | | | | | | [place], | | | | | | [place] [address] | | | | | | [phone] | | | | | | | [...]
--- OUTSIDE RECORDS SUMMARY | ~2019-11-16 | XMS | Encounter Summary ---
Demographics + + + | Address | [address] | | | [place] [address] | + + + | Home Phone [...] Providers + +------+ + | Care Cell Tuber Hand Name | Role | Phone | [...] CTR XRAY [address] | [address] [place] | | | | | [place] | [place], | | | | | [place] [address] | [place] [address] | | | | | [phone] | | | | | | | [...] + + + +---------+ + + | [place]-3 Fatty | CAPS, one capsule by | [...] Dx); | | | | | [place] [address] | Presence of | | | | | [phone] | permanent cardiac | | | | [...] | [address] [facility] | Interrogation | | | | | [place], | (Primary Dx); | | | | | [place] [address] | Presence of | | | | | [phone] | permanent cardiac | | | | [...] | | | | | | [place], | | | | | | [place] [address] | | | | | | [phone] | | | | | | | [...] + | [facility] | [place] | | Department [address] [facility], [place] | [facility] | | [ rep ct [address]] [ rep ct [facility] | | [facility]] Signed | - IMAGING | | | | | Patient Name: MOE GAY W | | | Physician: MIGUELINA : 1960 Age: 53 Sex: M Unit | | | #: [id number] Exam Date: 12/25/13 Location: | | | SDS SDS-D Report #: [id number] Page: | | | %(RAD)RES..mtdd.print.filter("pg") of %(RAD) | | | RES..mtdd.print.filter("tpg") | | | | | | Accession Number: [id number] | | | LEFT HEART CATHETERIZATION, 12/25/2013 [...] the patient was taken to the cardiac record label intern. She | | | was prepared and draped in the usual fashion. Under sterile | | | technique and local anesthesia, percutaneous access was obtained | | | using #5 Mauritanian sheath in the right radial artery. Right heart cath | | | was not performed on this patient. Left ventriculography was | | | performed using #5 multipurpose diagnostic catheter. The selective | | | coronary angiography was then performed in several sagittal and | | | oblique projections using #5 multipurpose and #5 Mauritanian JL 3.5 | | | diagnostic catheters. [...] Transcribed | | | Date/Time: 12/25/2013 11:52 Home Security Professional: | | | <<Signature on File>> | | | Daljit | | | MD [facility] ALEKSANDER12/25/13 1343 <Electronically signed by | | | Daljit Singletary MD, [facility], FACP, ADELINE, YEN> Daljit | | | MD [facility] ADELINE 12/25/13 1035 Home Security Professional: Jessica | | | Exvsykdusyahr10/03/14 1152 | | + + + + + + + + | Performing | Address | City/State/Zipcode | Phone Number | | Organization | | | | + + + + + | [facility] | [address] | [place] | [phone] | | [facility] | | [address] | | | - IMAGING | | | | + + + + + documented in this encounter Visit Diagnoses Not on filedocumented in this encounter
--- OUTSIDE RECORDS SUMMARY | ~2019-11-16 | XMS | Encounter Summary ---
Demographics + + + | Address | [address] | | | [place] [address] | + + + | Home Phone [...] | CARDIOLOGY [address] | MD [address] [place] | | | | | [place], | [place], | | | | | [place] [address] | [place] [address] | | | | | [phone] | | | | | | | [...] Dx); | | | | | [place] [address] | Presence of | | | | | [phone] | permanent cardiac | | | | [...] Dx); | | | | | [place] [address] | Presence of | | | | | [phone] | permanent cardiac | | | | [...] | | | | | | [place] [address] | | | | | | [phone] | | | | | | | | +--------+ + + + + documented as of this encounter Visit Diagnoses Not on filedocumented in this encounter"
--- OUTSIDE RECORDS SUMMARY | ~2019-11-16 | XMS | Encounter Summary ---
Demographics + + + | Address | [address] | | | [place] [address] | + + + | Home Phone [...] Team Providers + +------+ + | Care Foreign Food Cook Specialty Name | Role | Phone | [...] + | 06/20/ | Telephone | [facility] | Daljit Singletary, | Chest Pain | | 2018 | | CARDIOLOGY [address] | MD [address] [place] | | | | | [place], | [place], | | | | | [place] [address] | [place] [address] | | | | | [phone] | [phone] | | | | | | | [...] Dx); | | | | | [place] [address] | Presence of | | | | | [phone] | permanent cardiac | | | | [...] | Monitor | | MD [address] [place] | Interrogation | | | | | [place], | (Primary Dx); | | | | | [place] [address] | Presence of | | | | | [phone] | permanent cardiac | | | | [...] | | | | | | [place], | | | | | | [place] [address] | | | | | | [phone] | | | | | | | | +--------+ + + + + documented as of this encounter Visit Diagnoses Not on filedocumented in this encounter"
--- OUTSIDE RECORDS SUMMARY | ~2019-11-16 | XMS | Encounter Summary ---
Demographics + + + | Address | [address] | | | [place] [address] | + + + | Home Phone [...] Team Providers + +------+ + | Care Naturopathic Physician Name | Role | Phone | [...] | Aneurysmal | [place], | [address] | | | | | dilatation | PARISA Solis | [place], | | | | | (HCC) | [address] | [place] | | | | | Procedures | [place] | [address] | | | | | ECHO | [place], | Phone: | | | | | Complete | [place] | [phone] | | | | | | [address] | Fax: | | | | | | Phone: | [phone] | | | | | | [phone] | | | | | | | Fax: | | | | | | | [phone] | | +--------+--------+ + + + + Encounter Details +--------+ + + + + | Date | Type | Department | Care Team | Description | +--------+ + + + + | 11/16/ | Orders Only | [facility] [place] | [place], | Aneurysmal | | 2017 | | CARDIOLOGY [address] | PARISA Solis [address] | dilatation (HCC) | | | | [place], | [place], | (Primary Dx) | | | | [place] [address] | [place] [address] | | | | | [phone] | [phone] | | | | | | | [...] Interrogation | | | | | [place], | (Primary Dx); | | | | | [place] [address] | Presence of | | | | | [phone] | permanent cardiac | | | | [...] Interrogation | | | | | [place], | (Primary Dx); | | | | | [place] [address] | Presence of | | | | | [phone] | permanent cardiac | | | | [...] W | | | | | | [place], | | | | | | [place] [address] | | | | | | [phone] | | | | | | | [...] Patient Name VICTOR HUGO | | | [place] Room Number KIRK Patient | | | [id number] Date of Study 11/16/2017 Number | | | Visit Number [id number] | | | Referring Physician GURJIT TROY Number | | | NORMA MCLAUGHLINN Date | | | of 1960 Fiberglass Auto Body Repairer ROMAINE | | | MARISSA TIPTON Age 57 year(s) Interpreting | | | GURJIT TROY | | | Head Kiln Operator DALJIT SINGLETARY, | | | MD | | | Gender Male Nurse | | | [facility] Director Procedure Type of | | | [...] | | | EF | | | Soeikorbn57% Left Ventricle Diastolic Dimension: 5.12 cm | [...] Volume: 46.33 ml | | | EF Hahknpbrr60% | | | | | | Left [...] Rad Results In - 11/16/2017 1:48 PM [facility] Transthoracic Echocardiography Report | | (TTE) Demographics Patient Name VICTOR HUGO BARRY Room Number KIRK | | Patient [id number] Date of Study 11/16/2017 Number Visit Number | | [id number] Referring Physician GURJIT TROY | | Number NORMA SOLIS Date of | | 1960 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
--- OUTSIDE RECORDS SUMMARY | ~2019-11-16 | XMS | Encounter Summary ---
Demographics + + + | Address | [address] | | | [place] [address] | + + + | Home Phone [...] Team Providers + +------+ + | Care Kaiawhina Kura [place] Maori Name | Role | Phone | + [...] | RN | | | | | [place], | | | | | | [place] [address] | | | | | | [phone] | | | +--------+ + + + [...] Interrogation | | | | | [place], | (Primary Dx); | | | | | [place] [address] | Presence of | | | | | [phone] | permanent cardiac | | | | [...] Interrogation | | | | | [place], | (Primary Dx); | | | | | [place] [address] | Presence of | | | | | [phone] | permanent cardiac | | | | [...] | | | | | | [place] [address] | | | | | | [phone] | | | | | | | | +--------+ + + + + documented as of this encounter Visit Diagnoses Not on filedocumented in this encounter"
--- OUTSIDE RECORDS SUMMARY | ~2019-11-16 | XMS | Clinical Summary ---
Demographics + + + | Address | [address] [place] [address] | | | [place] [address] | + + + | Home Phone [...] [place] | | | | | [address] | | + + + + + Care Team Providers + +------+ + | Care Medical Accounting Clerk Name | Role | Phone | + +------+ + | Darion Holden DO | PCP | | + +------+ + Source Comments IVETTE is fully live on both EpicCare Ambulatory and EpicCare InPatient.[facility] Allergies + + + + [...] | | | | | | | [address] | | + +--------+ +--------+ + +--------+ | [employer] | AARP | xxxxxxxxxx | 11/22/19 | [phone] | [address] | Indemn | | RETIRED PEOPLE | | | 10-Pre | 9 | [id number] | ity | | | | | sent | | [place] | | | | | | | | [address] | | + +--------+ +--------+ + +--------+ + +--------+ +--------+ + + | Guarantor Name | Accoun | Relation to | Date | Phone | Billing Address | | | t Type | Patient | of | | | | | | | | | | + +--------+ +--------+ + + | Moe Sanchez | Person | Self | [birth year] | [address] | | | al/Per | | 1959 | [phone] | [place] | | | roxanne | | | 8 (Home) | [address] | + +--------+ +--------+ + + Advance Directives + + + + + | Type | Date Recorded | Patient | Explanation | | | | Chalk Tester | | + + + + + | Advance | | | | | Directives and | | | | | Living Will | | | | + + + + + | Power of | | | | | Auto Specialty Services Manager | | | | + + + + +
--- OUTSIDE RECORDS SUMMARY | ~2019-11-16 | XMS | Encounter Summary ---
Demographics + + + | Address | [address] | | | [place] [address] | + + + | Home Phone [...] Providers + +------+ + | Care Rotary Soil Stabilizer Operator Name | Role | Phone | [...] Show | | 2012 | | MEDICINE [place] | DO [address] | | | | | [address] | [place] | | | | | [place] | [address] | | | | | [address] | | | | | | [phone] | | | +--------+ + + + [...] Interrogation | | | | | [place], | (Primary Dx); | | | | | [place] [address] | Presence of | | | | | [phone] | permanent cardiac | | | | [...] Interrogation | | | | | [place], | (Primary Dx); | | | | | [place] [address] | Presence of | | | | | [phone] | permanent cardiac | | | | [...] W | | | | | | [place], | | | | | | [place] [address] | | | | | | [phone] | | | | | | | | +--------+ + + + + documented as of this encounter Visit Diagnoses Not on filedocumented in this encounter"
--- OUTSIDE RECORDS SUMMARY | ~2019-11-16 | XMS | Encounter Summary ---
Demographics + + + | Address | [address] | | | [place] [address] | + + + | Home Phone [...] Providers + +------+ + | Care Mechanical Engineering Teacher Name | Role | Phone | + +------+ + PCP | Unavailable | + +------+ + Encounter Details +--------+ + + + + | Date | Type | Department | Care Team | Description | +--------+ + + + + | 01/27/ | [facility] | [facility] | Jonathan, | | | 2008 | Encounter | MED CTR EMERGENCY | Martell Cr MD [address] | | | | | CENTER [address] | [place] | | | | | [place] | [place] [address] | | | | | [address] | [phone] | | | | | [phone] | | | +--------+ + + + [...] Dx); | | | | | [place] [address] | Presence of | | | | | [phone] | permanent cardiac | | | | [...] | MD [facility] | Interrogation | | | | | [place], | (Primary Dx); | | | | | [place] [address] | Presence of | | | | | [phone] | permanent cardiac | | | | [...] W | | | | | | [place], | | | | | | [place] [address] | | | | | | [phone] | | | | | | | | +--------+ + + + + documented as of this encounter Visit Diagnoses Not on filedocumented in this encounter"
--- OUTSIDE RECORDS SUMMARY | ~2019-11-16 | XMS | Encounter Summary ---
Demographics + + + | Address | [address] | | | [place] [address] | + + + | Home Phone [...] Providers + +------+ + | Care Electronics Specialist Name | Role | Phone | [...] + + | 06/06/ | Office | [facility] | Silvia, | Essential | | 2019 | Visit | CARDIOLOGY [address] | PARISA [place] [address] | hypertension | | | | [place], | [place], | (Primary Dx); | | | | [place] [address] | [place] [address] | Sinoatrial node | | | | [phone] | [phone] | dysfunction (HCC) | | | | | | with symptomatic | | | | | | bradycardia; | | | | | | Symptomatic PVCs; | | | | | | Tachycardia; | | | | | | Coronary artery | | | | | | disease involving | | | | | | [place] coronary | | | | | | artery of [place] | | | | | | heart [...] encounter Patient Instructions Patient Instructions Julia Allen, Avionics Supervisor - 06/06/2019 2:15 PM PDT1. Take a [...] of -critical coronary artery dise ase involving [place] coronary artery of [place] heart without angina pectoris, essential hype rtension, [...] was seen in the emergency department at [facility] in [place] due to chest pain, no medication changes at that time. On 06/02/2019 he was seen here in the [facility] department with chest pain, irregular [...] Preventative health care Coronary artery disease involving [place] coronary artery of [place] heart without angina pectoris Cannabis abuse, daily [...] 3RD DOSE, CALL 911 100 tablet 3 Yoder-3 Fatty Acids (SALMON OIL-1000 PO) CAPS, one capsule by mouth daily twice daily ondansetron (ZOFRAN ODT) 4 mg disintegrating tablet Take 4 mg by mouth every 8 hours as needed for Nausea. ONE TOUCH DELICA LANCETS [facility] [...] 47 06/02/2019 I reviewed records from [facility] for emergency department visit o n 06/02/2019 which is summarized in the HPI. RESULTS- I reviewed reports from [facility]: Ct Abdomen Pelvis W Contrast [...] ASSESSMENT: 1. Non-critical Coronary artery disease involving [place] coronary artery of [place] heart [facility] angina pectoris: A.Normal exercise sestamibi [...] by Dr Juan Diego Gambino at [facility] on 01/30/2013.Patient had spontaneous PVC'sfr [...] to go back in 3 days to [facility] for an attempt of ablation under general [...] normal stable device function. Estimated remaining [facility] taylor longevity is 3.5 years. [...] visit, or sooner with concerns. Julia Clemente, Avionics Supervisor am acting as a scribe on behalf of, and in the presenc e of PARISA Lomas. - Reji Church 06/06/2019 15:10 Janeen Clemente ARNP, personally performed the services described in this documentati on, as scribed in my presence and it is both accurate and complete. -PARISA Lomas 06/06/2019 Portions of this chart may have been created with Sol[employer] voice recognition software. Occasi onal wrong-word or [...] Interrogation | | | | | [place], | (Primary Dx); | | | | | [place] [address] | Presence of | | | | | [phone] | permanent cardiac | | | | [...] Interrogation | | | | | [place], | (Primary Dx); | | | | | [place] [address] | Presence of | | | | | [phone] | permanent cardiac | | | | [...] | | | | | | [place], | | | | | | [place] [address] | | | | | | [phone] | | | | | | | [...] SYDNI | | | | | | ([id number]) on 06/06/2019 | | | | | [...] + + | Coronary artery disease involving [place] coronary artery of [place] heart without | | angina pectoris | + + | Syncope, unspecified syncope type | + + | Ascending thoracic aortic aneurysm (HCC) Thoracic aneurysm without mention of rupture | + + | Hyperlipidemia, mixed Mixed hyperlipidemia | + + documented in this encounter
--- OUTSIDE RECORDS SUMMARY | ~2019-11-16 | XMS | Encounter Summary ---
Demographics + + + | Address | [address] | | | [place] [address] | + + + | Home Phone [...] Providers + +------+ + | Care Data Scientist Name | Role | Phone | [...] 2014 | | CARDIOLOGY [address] | COMBINE INSPECTOR [address] [place] | edema and chest | | | | [place], | [facility] [place] | pain) | | | | [place] [address] | [address] | | | | | [phone] | | | +--------+ + + + [...] Dx); | | | | | [place] [address] | Presence of | | | | | [phone] | permanent cardiac | | | | [...] 2018 | Monitor | | [address] [place] | Interrogation | | | | | [place], | (Primary Dx); | | | | | [place] [address] | Presence of | | | | | [phone] | permanent cardiac | | | | [...] W | | | | | | [place], | | | | | | [place] [address] | | | | | | [phone] | | | | | | | | +--------+ + + + + documented as of this encounter Visit Diagnoses Not on filedocumented in this encounter"
--- OUTSIDE RECORDS SUMMARY | ~2019-11-16 | XMS | Encounter Summary ---
Demographics + + + | Address | [address] | | | [place] [address] | + + + | Home Phone [...] Providers + +------+ + | Care Substation Wireman Name | Role | Phone | + +------+ + | Kirk French MD | PCP | | + +------+ + Encounter Details +--------+ + + + + | Date | Type | Department | Care Team | Description | +--------+ + + + + | 06/17/ | Orders Only | [facility] [place] | [place], | Hyperlipidemia, | | 2016 | | CARDIOLOGY [address] | Janeen LICENSE ISSUER [address] | mixed | | | | [place], | [place], | | | | | [place] [address] | [place] [address] | | | | | [phone] | [phone] | | | | | | | [...] Interrogation | | | | | [place], | (Primary Dx); | | | | | [place] [address] | Presence of | | | | | [phone] | permanent cardiac | | | | [...] 2018 | Monitor | | [address] [place] | Interrogation | | | | | [place], | (Primary Dx); | | | | | [place] [address] | Presence of | | | | | [phone] | permanent cardiac | | | | [...] W | | | | | | [place], | | | | | | [place] [address] | | | | | | [phone] | | | | | | | | +--------+ + + + + documented as of this encounter Visit Diagnoses + + | Diagnosis | + + | Hyperlipidemia, mixed Mixed hyperlipidemia | + + documented in this encounter"
--- OUTSIDE RECORDS SUMMARY | ~2019-11-16 | XMS | Encounter Summary ---
Demographics + + + | Address | [address] | | | [place] [address] | + + + | Home Phone [...] Providers + +------+ + | Care Bed Machine Operator Name | Role | Phone | + +------+ + PCP | Unavailable | + +------+ + Encounter Details +--------+ + + + + | Date | Type | Department | Care Team | Description | +--------+ + + + + | 07/20/ | [facility] | [facility] | Hunter Antunez, | | | 2009 - | Encounter | MED CTR MED ONC | [address] | | | | | [address] [place] | [place] | | | 07/24/ | | [place] [address] | [address] | | | 2009 | | [phone] | | | +--------+ + + + [...] 2019 | Monitor | | [address] | Interrogation | | | | | [place], | (Primary Dx); | | | | | [place] [address] | Presence of | | | | | [phone] | permanent cardiac | | | | [...] Interrogation | | | | | [place], | (Primary Dx); | | | | | [place] [address] | Presence of | | | | | [phone] | permanent cardiac | | | | [...] W | | | | | | [place], | | | | | | [place] [address] | | | | | | [phone] | | | | | | | | +--------+ + + + + documented as of this encounter Visit Diagnoses Not on filedocumented in this encounter"
--- OUTSIDE RECORDS SUMMARY | ~2019-11-16 | XMS | Encounter Summary ---
Demographics + + + | Address | [address] | | | [place] [address] | + + + | Home Phone [...] Team Providers + +------+ + | Care Lehr Tender Name | Role | Phone | [...] [address] | | | | | [place], | [place], | | | | | [place] [address] | [place] [address] | | | | | [phone] | [phone] | | | | | | | [...] | Monitor | | MD [address] [place] | Interrogation | | | | | [place], | (Primary Dx); | | | | | [place] [address] | Presence of | | | | | [phone] | permanent cardiac | | | | [...] | Monitor | | MD [address] [place] | Interrogation | | | | | [place], | (Primary Dx); | | | | | [place] [address] | Presence of | | | | | [phone] | permanent cardiac | | | | [...] | | | | | | [place] [address] | | | | | | [phone] | | | | | | | | +--------+ + + + + documented as of this encounter Visit Diagnoses Not on filedocumented in this encounter"
--- OUTSIDE RECORDS SUMMARY | ~2019-11-16 | XMS | Encounter Summary ---
Demographics + + + | Address | [address] | | | [place] [address] | + + + | Home Phone [...] [facility] | | | [...] Team Providers + +------+ + | Care Courtroom Reporter Name | Role | Phone | [...] | MED CTR EXTERNAL | MD [address] | | | | | IMAGING | Jay [place]ORPE | | | | | [phone] | [place] [address] | | +--------+ + + + + [...] Dx); | | | | | [place] [address] | Presence of | | | | | [phone] | permanent cardiac | | | | [...] Dx); | | | | | [place] [address] | Presence of | | | | | [phone] | permanent cardiac | | | | [...] W | | | | | | [place], | | | | | | [place] [address] | | | | | | [phone] | | | | | | | [...] for comparison only - no result from [facility]. | | + + + + +---------+ + + | Performing | Address | City/State/Zipcode | Phone Number | | Organization | | | | + +---------+ + + | [facility] | | | | + +---------+ + + documented in this encounter Visit Diagnoses Not on filedocumented in this encounter"
--- OUTSIDE RECORDS SUMMARY | ~2019-11-16 | XMS | Encounter Summary ---
Demographics + + + | Address | [address] | | | [place] [address] | + + + | Home Phone [...] Providers + +------+ + | Care Process Coordinator Name | Role | Phone | + +------+ + PCP | Unavailable | + +------+ + Encounter Details +--------+ + + + + | Date | Type | Department | Care Team | Description | +--------+ + + + + | 06/17/ | Hospital | [facility] | | | | 2007 | Encounter | MED CTR EMERGENCY | | | | | | [place] [address] | | | | | | [place] | | | | | | [address] | | | | | | [phone] | | | +--------+ + + + [...] Dx); | | | | | [place] [address] | Presence of | | | | | [phone] | permanent cardiac | | | | [...] Dx); | | | | | [place] [address] | Presence of | | | | | [phone] | permanent cardiac | | | | [...] | | | | | | [place], | | | | | | [place] [address] | | | | | | [phone] | | | | | | | | +--------+ + + + + documented as of this encounter Visit Diagnoses Not on filedocumented in this encounter"
--- OUTSIDE RECORDS SUMMARY | ~2019-11-16 | XMS | Encounter Summary ---
Demographics + + + | Address | [address] | | | [place] [address] | + + + | Home Phone [...] CARDIOLOGY [address] | MD [address] [place] | Interrogation | | | | [place], | [place], | (Primary Dx); | | | | [place] [address] | [place] [address] | Pacemaker; | | | | [phone] | [phone] | Sinoatrial node | | | | [...] Dx); | | | | | [place] [address] | Presence of | | | | | [phone] | permanent cardiac | | | | [...] | 2018 | Monitor | | [address] [place] | Interrogation | | | | | [place], | (Primary Dx); | | | | | [place] [address] | Presence of | | | | | [phone] | permanent cardiac | | | | [...] W | | | | | | [place], | | | | | | [place] [address] | | | | | | [phone] | | | | | | | [...] remote PDF scanned into | | | [facility] for remote interrogation results. Data [...]
--- OUTSIDE RECORDS SUMMARY | ~2019-11-16 | XMS | Encounter Summary ---
Demographics + + + | Address | [address] | | | [place] [address] | + + + | Home Phone [...] Team Providers + +------+ + | Care Peripheral Edp Equipment Operator Name | Role | Phone [...] W | DISCLOSURE) | | | | [place], | [place], | | | | | [place] [address] | [place] [id number] | | | | | [phone] | [phone] | | | | | | | [...] | Monitor | | MD [address] [place] | Interrogation | | | | | [place], | (Primary Dx); | | | | | [place] [address] | Presence of | | | | | [phone] | permanent cardiac | | | | [...] | Monitor | | MD [address] [place] | Interrogation | | | | | [place], | (Primary Dx); | | | | | [place] [address] | Presence of | | | | | [phone] | permanent cardiac | | | | [...] | | | | | | [place] [id number] | | | | | | [phone] | | | | | | | | +--------+ + + + + documented as of this encounter Visit Diagnoses Not on filedocumented in this encounter"
--- OUTSIDE RECORDS SUMMARY | ~2019-11-16 | XMS | Encounter Summary ---
Demographics + + + | Address | [address] | | | [place] [address] | + + + | Home Phone [...] + +------+ + | Care Oil Well Driller Name | Role | Phone | + +------+ + | Kirk French MD | PCP | | + +------+ + Encounter Details +--------+ + + + + | Date | Type | Department | Care Team | Description | +--------+ + + + + | 01/05/ | Hospital | [facility] | Emmanuel Daniel MD | Functional diarrhea | | 2019 | Encounter | MED CTR MP INTRA OP | [address], [place] | (Primary Dx); Weight | | | | [address] | [address] [place], [place] | loss | | | | [place], [place] | [address] | | | | | [address] | | | | | | [phone] | | | +--------+ + + + [...] for a few hours. Date Last Reviewed: 09/22/201619993602-9427 [employer]. [address] [place] [address], [place] [address]. All righ ts reserved. This information is [...] vomiting, or vomiting blood Date Last Reviewed: 05/22/201619994611-5591 [employer]. [address] [place] [address]. All aspirus onton[facility] hospital[facility] ts reserved. This information is not [...] You can't be awakened Date Last Reviewed: 09/08/201619995908-4635 [employer]. [address] [place] [address], [place] [address]. All righ ts reserved. This information is [...] Dx); | | | | | [place] [address] | Presence of | | | | | [phone] | permanent cardiac | | | | [...] Dx); | | | | | [place] [address] | Presence of | | | | | [phone] | permanent cardiac | | | | [...] | | | | | | [place], | | | | | | [place] [address] | | | | | | [phone] | | | | | | | [...] [address], | REFERENCE LAB | | [place], [place] [address] Assistant Account Manager: Miguel Galarza MD, Phone: | [facility] | | [phone] | | + + + + + + + + | Performing | Address | City/State/Zipcode | Phone Number | | Organization | | | | + + + + + | REFERENCE LAB | [address] | [place] [address] | [phone] | | [facility] | Drive [...] [address], | REFERENCE LAB | | [place], [place] [id number] Assistant Account Manager: Miguel Galarza MD, Phone: | [facility] | | [phone] | | + + + + + + + + | Performing | Address | City/State/Zipcode | Phone Number | | Organization | | | | + + + + + | REFERENCE LAB | [address] | [place] [address] | [phone] | | [facility] | Drive [...] [address] | [place] | [phone] | | [facility] | | [address] | | | - LABORATORY | | [...] [address] | [place] | [phone] | | [facility] | | [address] | | | - LABORATORY | | [...] | | dium | | | [facility] | | | Antigen | [...] [address] | [place] | [phone] | | [facility] | | [address] | | | - LABORATORY | | [...] + | [facility] | [address] | [place] | [phone] | | [facility] | | [address] | | | - LABORATORY | | [...] [address] | [place] | [phone] | | [facility] | | [address] | | | - LABORATORY | | [...] + | [facility] | [address] | [place] | [phone] | | [facility] | | [address] | | | - LABORATORY | | | | + + + + + EGD (01/05/2019 8:36 AM PST) + + | Specimen | + + | | + + + + -+ | Narrative | Performed At | + + -+ | | [facility] | | GastroenterologyPatient Name: Moe Venegas Date: | PROVATION | | 01/05/2019 8:36 AMMRN: [id number] #: [id number] of : | | | 9Admit Type: AmbulatoryAge: 58Room: [facility] 01Gender: MaleNote | | | Status: FinalizedAttending MD: Emmanuel Daniel , MDProcedure: | | | Upper GI endoscopyIndications: Diarrhea, Weight | | | lossProviders: Emmanuel Daniel MD, Heidi Mixon Fuquay Varina, | | | RN, Kim Hicks, Tool Pusher, | | | Jarett Barakat MD (Anesthesia [...] physician, the nurse, the anesthesiologist and the aircraft systems technician | | | in the endoscopy [...] | | Imaging was performed using the [employer] | | | Endoscopy (FICE) [...] 8:49:50 AM [facility]. | | | [facility], [address] [place] [address] | | | [phone] | | |Recommendation: | | | - [...] 8:49:50 AM | | | [facility]. [facility], [address] [place] [address] | | | [address] | | + + -+ + +---------+ [...] | PROVATION | | 01/05/2019 8:36 AMMRN: [id number] #: [id number] of : | | | 9Admit Type: AmbulatoryAge: 58Room: [facility] 01Gender: MaleNote | | | Status: FinalizedAttending MD: Emmanuel Daniel , [facility]cedure: | | | ColonoscopyIndications: Clinically significant diarrhea of | | | unexplained origin, Weight lossProviders: | | | Emmanuel Daniel MD, Heidi An RN, Nap[place] | | | Fiorella Hicks, Tool Pusher, Jarett Quezada. | | | MD Roshni [...] | | | the anesthesiologist and the aircraft systems technician in the endoscopy suite. 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 [facility]:C3NR GROSS DESCRIPTION: A. The | | | specimen, labeled "[place], duodenal biopsy" is received in formalin | | | and consists of seven 0.1-0.5 cm lin fragments. Entirely submitted in | | | (A1). B. The specimen, labeled "[place], right colon" is received | | | in formalin and consists of six 0.2-0.3 cm lin fragments. Entirely | | | submitted in (B1). C. The specimen, labeled "[place], left colon" | | | is received in formalin and consists of six 0.2-0.3 cm lin-pink | | | fragments. Entirely submitted in (C1). am:AMB:portillo PERFORMING | | | LABORATORY: The technical component was performed by [employer] | | | [facility] [place] [address] (Velvet Steamer: | | | Kailey Stafford MD; CLIA# [id number]). Professional interpretation was | | | performed by [facility] [place] [address] | | | [place] [address] (Velvet Steamer: Ishaan | | Shanique Dao M.D.; CLIA#: [id number]). Diagnostician: Ishaan Fitzpatrick | | | Sylwia [...]
--- OUTSIDE RECORDS SUMMARY | ~2019-11-16 | XMS | Encounter Summary ---
Demographics + + + | Address | [address] | | | [place] [address] | + + + | Home Phone [...] Providers + +------+ + | Care Curtain Hemmer Automatic Name | Role | Phone | + +------+ + PCP | Unavailable | + +------+ + Encounter Details +--------+ + + + + | Date | Type | Department | Care Team | Description | +--------+ + + + + | 09/13/ | [facility] | [facility] | Jonathan, | | | 2009 | Encounter | MED CTR EMERGENCY | Martell Cr MD [address] | | | | | CENTER [address] | [place] | | | | | [place] | [place] [address] | | | | | [address] | [phone] | | | | | [phone] | | | +--------+ + + + [...] Dx); | | | | | [place] [address] | Presence of | | | | | [phone] | permanent cardiac | | | | [...] Dx); | | | | | [place] [address] | Presence of | | | | | [phone] | permanent cardiac | | | | [...] | | | | | | [place], | | | | | | [place] [address] | | | | | | [phone] | | | | | | | | +--------+ + + + + documented as of this encounter Visit Diagnoses Not on filedocumented in this encounter"
--- OUTSIDE RECORDS SUMMARY | ~2019-11-16 | XMS | Encounter Summary ---
Demographics + + + | Address | [address] | | | [place] [address] | + + + | Home Phone [...] Providers + +------+ + | Care Medical Assisting Program Director Name | Role | Phone [...] [place] | | | | | [place] | | [address] Phone: | | | | | CYSTO/URETER | | [phone] | | | | | O | | Fax: | | | | | W/LITHOTRIPS | | [phone] | | | | | Y &INDWELL [...] | | | | | [address] | [place] | | | | | [place] | [address] | | | | | [address] | | | | | | [phone] | | | +--------+ + + + [...] +----+---+ + + | | 0 | [place] | | | | 8 | 43-degrees | | | | 2 | | | | | 7 | | | +----+---+ + + | | 0 | First | | | | 8 | Inc/Proc St | | | | 2 | | | | | 8 | | | +----+---+ + + | | 0 | [place] off | | | | 9 | [...] 04/13/19 1219 by | | eral | xyxk-cvy-xqapbd catheter system; | Dominga Steen RN | [...] Dx); | | | | | [place] [address] | Presence of | | | | | [phone] | permanent cardiac | | | | [...] | 2018 | Monitor | | [address] | Interrogation | | | | | [place], | (Primary Dx); | | | | | [place] [address] | Presence of | | | | | [phone] | permanent cardiac | | | | [...] | | | | | | [place] [address] | | | | | | [phone] | | | | | | | [...] 8:23 | | | | | Starting [facility] 04/13/19 at 0823, | | AM PDT [...]
--- OUTSIDE RECORDS SUMMARY | ~2019-11-16 | XMS | Encounter Summary ---
Demographics + + + | Address | [address] [place] [address] | | | [place] [address] | + + + | Home Phone [...] [place] | | | | | [address] | | + + + + + Care Team Providers + +------+ + | Care Shotblast Operator Name | Role | Phone | [...] Yao | | | | | at [facility] | [facility] | | | | | [address] | [place] [address] | | | | | Loop Mailcode: | | | | | | [id number] Yao Booth | | | | | | [facility] | | | | | | [place], [place] | | | | | | [address] | | | | | | [phone] | | | +--------+ + + + [...] view image for the detailed interpretation from [employer] results. | CARDIOLOGY | + + + + + + + + | Performing | Address | City/State/Zipcode | Phone Number | | Organization | | | | + + + + + | [facility] | [address] | [place], [place] | | | CARDIOLOGY | [address] | [address] | | + + + + + documented in this encounter Visit Diagnoses Not on filedocumented in this encounter"
--- OUTSIDE RECORDS SUMMARY | ~2019-11-16 | XMS | Encounter Summary ---
Demographics + + + | Address | [address] | | | [place] [address] | + + + | Home Phone [...] Providers + +------+ + | Care Prepress Technician Name | Role | Phone | + +------+ + PCP | Unavailable | + +------+ + Encounter Details +--------+ + + + + | Date | Type | Department | Care Team | Description | +--------+ + + + + | 10/19/ | Hospital | [facility] | | | | 1992 | Encounter | MED CTR EMERGENCY | | | | | | CENTER [address] | | | | | | [place] | | | | | | [address] | | | | | | [phone] | | | +--------+ + + + [...] Dx); | | | | | [place] [address] | Presence of | | | | | [phone] | permanent cardiac | | | | [...] Interrogation | | | | | [place], | (Primary Dx); | | | | | [place] [address] | Presence of | | | | | [phone] | permanent cardiac | | | | [...] W | | | | | | [place], | | | | | | [place] [address] | | | | | | [phone] | | | | | | | | +--------+ + + + + documented as of this encounter Visit Diagnoses Not on filedocumented in this encounter"
--- OUTSIDE RECORDS SUMMARY | ~2019-11-16 | XMS | Encounter Summary ---
Demographics + + + | Address | [address] | | | [place] [address] | + + + | Home Phone [...] Providers + +------+ + | Care Manager Discovery Name | Role | Phone | + [...] Provider Unknown | | | | | [place], [place] | [phone] | | | | | [address] | | | | | | [phone] | | | +--------+ + + + [...] + + + +---------+ + + | [place]-3 Fatty | CAPS, one capsule by | [...] Interrogation | | | | | [place], | (Primary Dx); | | | | | [place] [address] | Presence of | | | | | [phone] | permanent cardiac | | | | [...] | 2018 | Monitor | | [address] | Interrogation | | | | | [place], | (Primary Dx); | | | | | [place] [address] | Presence of | | | | | [phone] | permanent cardiac | | | | [...] W | | | | | | [place], | | | | | | [place] [address] | | | | | | [phone] | | | | | | | [...]
--- OUTSIDE RECORDS SUMMARY | ~2019-11-16 | XMS | Encounter Summary ---
Demographics + + + | Address | [address] | | | [place] [address] | + + + | Home Phone [...] Team Providers + +------+ + | Care Sinter Feeder Name | Role | Phone | [...] [place] | | | | | | [address] | | | | | | [phone] | | | +--------+ + + + [...] | Monitor | | MD [address] | Interrogation | | | | | [place], | (Primary Dx); | | | | | [place] [address] | Presence of | | | | | [phone] | permanent cardiac | | | | [...] | Monitor | | MD [address] | Interrogation | | | | | [place], | (Primary Dx); | | | | | [place] [address] | Presence of | | | | | [phone] | permanent cardiac | | | | [...] | | | | | | [place] [address] | | | | | | [phone] | | | | | | | | +--------+ + + + + documented as of this encounter Visit Diagnoses Not on filedocumented in this encounter"
--- OUTSIDE RECORDS SUMMARY | ~2019-11-16 | XMS | Encounter Summary ---
Demographics + + + | Address | [address] | | | [place] [address] | + + + | Home Phone [...] Providers + +------+ + | Care Processing Engineer Name | Role | Phone [...] 2014 | | CARDIOLOGY [address] | PAINT FORMULATOR [address] [place] | | | | | [place], | [place], [place] | | | | | [place] [address] | [address] | | | | | [phone] | | | +--------+ + + + [...] Interrogation | | | | | [place], | (Primary Dx); | | | | | [place] [address] | Presence of | | | | | [phone] | permanent cardiac | | | | [...] 2018 | Monitor | | [address] | Interrogation | | | | | [place], | (Primary Dx); | | | | | [place] [address] | Presence of | | | | | [phone] | permanent cardiac | | | | [...] | | | | | | [place] [address] | | | | | | [phone] | | | | | | | | +--------+ + + + + documented as of this encounter Visit Diagnoses Not on filedocumented in this encounter"
--- OUTSIDE RECORDS SUMMARY | ~2019-11-16 | XMS | Encounter Summary ---
Demographics + + + | Address | [address] | | | [place] [address] | + + + | Home Phone [...] Providers + +------+ + | Care Party Plan Demonstrator Name | Role | Phone | + [...] + | 02/16/ | Telephone | [facility] | Silvia, | Other (concerned | | 2012 | | CARDIOLOGY [address] | [address] | about palpitations) | | | | [place], | [place], | | | | | [place] [address] | [place] [address] | | | | | [phone] | [phone] | | | | | | | [...] Dx); | | | | | [place] [address] | Presence of | | | | | [phone] | permanent cardiac | | | | [...] Monitor | | MD [address] [place] | Interrogation | | | | | [place], | (Primary Dx); | | | | | [place] [address] | Presence of | | | | | [phone] | permanent cardiac | | | | [...] | | | | | | [place] [address] | | | | | | [phone] | | | | | | | | +--------+ + + + + documented as of this encounter Visit Diagnoses Not on filedocumented in this encounter"
--- OUTSIDE RECORDS SUMMARY | ~2019-11-16 | XMS | Encounter Summary ---
Demographics + + + | Address | [address] | | | [place] [address] | + + + | Home Phone [...] Team Providers + +------+ + | Care Pasteurizing Machine Operator Name | Role | Phone [...] + | 01/02/ | Telephone | [facility] | Daljit Singletary, | Other (chest pain) | | 2018 | | CARDIOLOGY [address] | MD [address] [place] | | | | | [place], | [place], | | | | | [place] [address] | [place] [address] | | | | | [phone] | [phone] | | | | | | | [...] Dx); | | | | | [place] [address] | Presence of | | | | | [phone] | permanent cardiac | | | | [...] | Monitor | | [address] [place] | Interrogation | | | | | [place], | (Primary Dx); | | | | | [place] [address] | Presence of | | | | | [phone] | permanent cardiac | | | | [...] | | | | | | [place] [address] | | | | | | [phone] | | | | | | | | +--------+ + + + + documented as of this encounter Visit Diagnoses Not on filedocumented in this encounter"
--- OUTSIDE RECORDS SUMMARY | ~2019-11-16 | XMS | Encounter Summary ---
Demographics + + + | Address | [address] | | | [place] [address] | + + + | Home Phone [...] + +------+ + | Care Manager Of School Name | Role | Phone | [...] | | | | [place] | | [address] Phone: | | | | | CYSTO/URETER | | [phone] | | | | | O | | Fax: | | | | | W/LITHOTRIPS | | [phone] | | | | | Y &INDWELL [...] + + | 04/13/ | Surgery | [facility] | Matthew Uriarte | Cystoscopy, Left | | 2018 | | MED CTR OR INTRA OP | Dahl, MD [address] | ureteroscopy with | | | | [address] | [address] [place] | laser lithotripsy, | | | | [place], [place] | [address] | Left ureteral stent | | | | [address] | | placement | | | | [phone] | | | +--------+---------+ + + + [...] Care Everywhere.Kidney Stones, Treating: Ureteroscopic Stone Removal (Omani)Stents, Ureteral (Omani)documented in this encounter Medications at Time of [...] + + + +---------+ + + | [place]-3 Fatty | CAPS, one capsule by | [...] | | | | | | | [place] coronary | | | | | | | artery of skull [place] | | | | | | [...] Dx); | | | | | [place] [address] | Presence of | | | | | [phone] | permanent cardiac | | | | [...] 2018 | Monitor | | [address] | Interrogation | | | | | [place], | (Primary Dx); | | | | | [place] [address] | Presence of | | | | | [phone] | permanent cardiac | | | | [...] | | | | | | [place], | | | | | | [place] [address] | | | | | | [phone] | | | | | | | [...] LabAnthony | | | | | | at:[phone]. | | | | + + + [...] [address], | REFERENCE LAB | | [place] [id number] Corporate Financial Analyst: Yeny Rios MD, Phone: | ARSH CASTANON | | [phone] | | + + + + + + + + | Performing | Address | City/State/Zipcode | Phone Number | | Organization | | | | + + + + + | REFERENCE LAB | [address] | [place] [address] | [phone] | | [facility] | [address] [...] [address] | [place] | [phone] | | [facility] | | [address] | | | - LABORATORY | | [...] | [facility] | [address] | [place] | [phone] | | [facility] | | [address] | | | - LABORATORY | | [...] [address] | [place] | [phone] | | [facility] | | [address] | | | - LABORATORY | | [...] | [facility] | [address] | [place] | [phone] | | [facility] | | [address] | | | - LABORATORY | | [...] | | MEDICAL | | | | mL/min/1.62z4Legw than | | CENTER - | | [...] ST. | [address] | [place] | [phone] | | [facility] | | [address] | | | - LABORATORY | | [...] | | | | | | | jijrwm-olo-grozv use of at least | | | [...]
--- OUTSIDE RECORDS SUMMARY | ~2019-11-16 | XMS | Encounter Summary ---
Demographics + + + | Address | [address] | | | [place] [address] | + + + | Home Phone [...] | 07/30/ | Telephone | [facility] | Michael Amanda, | Results | | 2013 | | MEDIC[facility] [place] | DO [address] | | | | | [address] | [place] | | | | | [place] | [address] | | | | | [address] | | | | | | [phone] | | | +--------+ + + + [...] Interrogation | | | | | [place], | (Primary Dx); | | | | | [place] [address] | Presence of | | | | | [phone] | permanent cardiac | | | | [...] Interrogation | | | | | [place], | (Primary Dx); | | | | | [place] [address] | Presence of | | | | | [phone] | permanent cardiac | | | | [...] W | | | | | | [place], | | | | | | [place] [address] | | | | | | [phone] | | | | | | | | +--------+ + + + + documented as of this encounter Visit Diagnoses Not on filedocumented in this encounter"
--- OUTSIDE RECORDS SUMMARY | ~2019-11-16 | XMS | Encounter Summary ---
Demographics + + + | Address | [address] | | | [place] [address] | + + + | Home Phone [...] + +------+ + | Care Quality Control Technician Name | Role | Phone | [...] | unspecified | MD Jacek | [address] | | | | | type | [address] | [place], | | | | | Unintentiona | [place] | [place] [address] | | | | | l weight | [place], [place] | Phone: | | | | | loss | [address] | [phone] | | | | | Procedures | Phone: | Fax: | | | | | IN GI IMAG | [phone] | [phone] | | | | | INTRALUMINAL | Fax: | | | | | | | [phone] | | | | | | ESOPHAGUS-IL [...] (Primary Dx); | | | | [address] [place], [place] | [place] [address] | Unintentional weight | | | | [address] | [phone] | loss | | | | [phone] | | | +--------+ + + + [...] Dx); | | | | | [place] [address] | Presence of | | | | | [phone] | permanent cardiac | | | | [...] | 2018 | Monitor | | [address] | Interrogation | | | | | [place], | (Primary Dx); | | | | | [place] [address] | Presence of | | | | | [phone] | permanent cardiac | | | | [...] W | | | | | | [place], | | | | | | [place] [address] | | | | | [phone] | | | | | | | [...]
--- OUTSIDE RECORDS SUMMARY | ~2019-11-16 | XMS | Encounter Summary ---
Demographics + + + | Address | [address] | | | [place] [address] | + + + | Home Phone [...] Providers + +------+ + | Care Waste Machine Tender Name | Role | Phone | + +------+ + | Kirk French MD | PCP | | + +------+ + Encounter Details +--------+ + + + + | Date | Type | Department | Care Team | Description | +--------+ + + + + | 08/29/ | Hospital | [facility] | [place] | DVT (deep venous | | 2015 | Encounter | MED CTR ULTRASOUND | [address] [address] | thrombosis), | | | | [address] [place] [place] | [place], | bilateral (HCC) | | | | [place], [place] | [place] [address] | | | | | [address] | [phone] | | | | | [phone] | | | +--------+ + + + [...] + + +---------+ + + | [place]-3 Fatty | CAPS, one capsule by | [...] | | | | | | | #[id number], exp 07/2016 | | | | | [...] Interrogation | | | | | [facility], | (Primary Dx); | | | | | [place] [address] | Presence of | | | | | [phone] | permanent cardiac | | | | [...] Interrogation | | | | | [place], | (Primary Dx); | | | | | [place] [address] | Presence of | | | | | [phone] | permanent cardiac | | | | [...] W | | | | | | [place], | | | | | | [place] [address] | | | | | | [phone] | | | | | | | [...] HISTORY: DVT. COMPARISON: None. TECHNIQUE: Compression | [facility] | | sonography was performed from the groin through the popliteal fossa | [facility] | | in both lower extremities.. [...] conveyed to the ordering provider, by the digital account coordinator, | | | immediately following the [...] to the ordering provider, by the | |digital account coordinator, immediately following the exam. | | [...] | [address] | [place] | [phone] | | [facility] | | [address] | | | - IMAGING | | | | + + + + + documented in this encounter Visit Diagnoses + + | Diagnosis | + + | DVT (deep venous thrombosis), bilateral | + + documented in this encounter"
--- OUTSIDE RECORDS SUMMARY | ~2019-11-16 | XMS | Encounter Summary ---
Demographics + + + | Address | [address] [place] [address] | | | [place] [address] | + + + | Home Phone [...] [place] | | | | | [address] | | + + + + + Care Team Providers + +------+ + | Care Aircraft Cleaning Supervisor Name | Role | Phone | [...] | | [facility] Rosa Maria | [facility] [place] | ED) | | | | Mailcode: Center | [address] | | | | | for Health and | [phone] | | | | | [facility], [facility] [address] | | | | | | [place], [place] | | | | | | [address] | | | | | | [phone] | | | +--------+ + + + [...]
--- OUTSIDE RECORDS SUMMARY | ~2019-11-16 | XMS | Encounter Summary ---
Demographics + + + | Address | [address] | | | [place] [address] | + + + | Home Phone [...] Providers + +------+ + | Care Grease Worker Name | Role | Phone | + +------+ + | Michael Amanda DO | PCP | | + +------+ + Encounter Details +--------+ + + + + | Date | Type | Department | Care Team | Description | +--------+ + + + + | 07/30/ | Abstract | [facility] [place] [facility] | Michael Amanda, | | | 2013 | | [facility] | DO [address] | | | | | [address] | [place] | | | | | [place] | [address] | | | | | [address] | | | | | | [phone] | | | +--------+ + + + [...] 2019 | Monitor | | [address] | Interrogation | | | | | [place], | (Primary Dx); | | | | | [place] [address] | Presence of | | | | | [phone] | permanent cardiac | | | | [...] Dx); | | | | | [place] [address] | Presence of | | | | | [phone] | permanent cardiac | | | | [...] | | | | | | [place] [address] | | | | | | [phone] | | | | | | | [...] + | [address] | [address] | [place] | [phone] | | [facility] | | [address] | | | - LABORATORY | | | | + + + + + | [address] | [address] | [place] | | | [facility] | | [address] | | | - LABORATORY | | [...] | | | | | | | [place]e, | | | | | | External [...]
--- OUTSIDE RECORDS SUMMARY | ~2019-11-16 | XMS | Encounter Summary ---
Demographics + + + | Address | [address] | | | [place] [address] | + + + | Home Phone [...] Providers + +------+ + | Care Angle Furnaceman Name | Role | Phone | + [...] + + | 05/14/ | Office | [facility] | [place], | Coronary artery | | 2013 | Visit | CARDIOLOGY [address] | [address] | disease (Primary | | | | [place], | [place], | Dx); Hypertension; | | | | [place] [address] | [place] [address] | Hyperlipidemia; | | | | [phone] | [phone] | Syncope; Other chest | | | [...] documented in this encounter Progress Notes Janeen Ramierz ARNP - 05/14/2014 7:40 AM PDTFormatting of [...] needed for Chest pain. 25 tablet 12 [place]-3 Fatty Acids (SALMON OIL-1000 PO) CAPS, [...] attenuation cannot completely be ruled out. [facility] 12/25/13, shows noncritical coronary artery disease, [...] exercising. He is in class II of [place] 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 There are no [...] to go back in 3 days to [place] for an attempt of ablation under general [...] palpitations.. He is in class II of [place] 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 There are no [...] bring in his blood pressure logs from [facility] 5. Lightheadedness and dizziness/ presyncope: A. [...] made to ensure accuracy; however, inadvertent computerized liquor gallery operator errors may be pre sent. Electronically [...] | Monitor | | MD [address] [place] | Interrogation | | | | | [place], | (Primary Dx); | | | | | [place] [address] | Presence of | | | | | [phone] | permanent cardiac | | | | [...] | Monitor | | MD [address] [place] | Interrogation | | | | | [place], | (Primary Dx); | | | | | [place] [address] | Presence of | | | | | [phone] | permanent cardiac | | | | [...] | | | | | | [place] [address] | | | | | | [phone] | | | | | | | [...] of unspecified type of | | vessel, nooksack or graft | + + | Hypertension Unspecified essential hypertension | + + | Hyperlipidemia Other and unspecified hyperlipidemia | + + | Syncope Syncope and collapse | + + | Other chest pain | + + | Chest pain Chest pain, unspecified | + + documented in this encounter
--- OUTSIDE RECORDS SUMMARY | ~2019-11-16 | XMS | Encounter Summary ---
Demographics + + + | Address | [address] | | | [place] [address] | + + + | Home Phone [...] + +------+ + | Care Information Technology Advisor Name | Role | Phone | [...] Refill | | 2014 | | [facility] | DO [address] | | | | | [address] | [place] | | | | | [place], [place] | [address] | | | | | [address] | | | | | | [phone] | | | +--------+--------+ + + + [...] | Monitor | | [address] [place] | Interrogation | | | | | [place], | (Primary Dx); | | | | | [place] [address] | Presence of | | | | | [phone] | permanent cardiac | | | | [...] | Monitor | | [address] [place] | Interrogation | | | | | [place], | (Primary Dx); | | | | | [place] [address] | Presence of | | | | | [phone] | permanent cardiac | | | | [...] | | | | | | [place] [address] | | | | | | [phone] | | | | | | | | +--------+ + + + + documented as of this encounter Visit Diagnoses Not on filedocumented in this encounter"
--- OUTSIDE RECORDS SUMMARY | ~2019-11-16 | XMS | Encounter Summary ---
Demographics + + + | Address | [address] | | | [place] [address] | + + + | Home Phone [...] Team Providers + +------+ + | Care Geochemist Name | Role | Phone | + [...] + + | 04/07/ | Office | [facility]OLOG[facility] | Matthew Uriarte | Left ureteral | | 2019 | Visit | [address] | MD Tawanna [address] | calculus (Primary | | | | [place], [place] | [place] | Dx); Kidney stones | | | | [address] | [address] | | | | | [phone] | | | +--------+---------+ + + + [...] April 13, 2019 at 7:45 AM at [facility]. Please report to the [facility] no later than 6:15 AM. REMEMBER: NOTHING TO EAT OR DRINK AFTER MIDNIGHT April 12, 2019. NO FISH OIL, ASPIRIN OR ASPIRIN PRODUCTS ONE WEEK PRIOR TO SURGERY. Tylenol and Advil are OK. You will need to get the following testing done prior to surgery: CBC, BMP YOU WILL NEED TO BRING A 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 REMEDIATION SPECIALIST WITH YOU THE DAY OF SURGERY. Call us at [phone] with any questions. [] Pain management booklet [...] [employer] Peptic ulcer disease Premature ventricular contraction [facility] care 06/26/2013 LAST PSA:12/16/2010 RESULT:0.14 [...] CV LHC; Surgeon: Daljit Singletary MD; Location: [facility] CV LAB CARDIAC CATHERIZATION N/A 01/25/2019 Procedure: CV Cor Angio; Surgeon: Daljit Singletary MD; Location: [facility] CV LAB COLONOSCOPY N/A 12/24/2017 Procedure: COLONOSCOPY; Surgeon: Emmanuel Daniel MD; Location: [facility] MEDICAL PROCEDURE UNIT COLONOSCOPY N/A 01/05/2019 Procedure: COLONOSCOPY; Surgeon: Emmanuel Daniel MD; Location: [facility] MEDICAL PROCEDURE UNIT EGD 12/24/2017 HARDWARE [...] Procedure: EGD; Surgeon: Emmanuel Daniel MD; Location: [facility] MEDICAL PROCEDURE UNIT UPPER GASTROINTESTINAL ENDOSCOPY N/A 01/05/2019 Procedure: EGD; Surgeon: Emmanuel Daniel MD; Location: [facility] MEDICAL PROCEDURE UNIT VASECTOMY Family History: [...] EVERY DAY, Disp: 90 tablet, Rfl: 3 [facility] Natural Products (OSTEO BI-FLEX/5-LOXIN ADVANCED PO), Take [...] 911, Disp: 100 ta blet, Rfl: 3 [place]-3 Fatty Acids (SALMON OIL-1000 PO), CAPS, one capsule by mouth daily twice daily , Disp: , Rfl: ondansetron (ZOFRAN ODT) 4 mg disintegrating tablet, Take 4 mg by mouth., Disp: , Rfl: ONE TOUCH DELICA LANCETS [facility], Check glucose as needed for hypoglycemia, Disp: [...] have not thoroughly proofread this note, and cell attendant errors are very likely to occur. [...] Dx); | | | | | [place] [address] | Presence of | | | | | [phone] | permanent cardiac | | | | [...] Dx); | | | | | [place] [address] | Presence of | | | | | [phone] | permanent cardiac | | | | [...] | | | | | | [place] [address] | | | | | | [phone] | | | | | | | [...]
--- OUTSIDE RECORDS SUMMARY | ~2019-11-16 | XMS | Encounter Summary ---
Demographics + + + | Address | [address] | | | [place] [address] | + + + | Home Phone [...] Team Providers + +------+ + | Care Locks Tender Name | Role | Phone | + +------+ + PCP | Unavailable | + +------+ + Encounter Details +--------+ + + + + | Date | Type | Department | Care Team | Description | +--------+ + + + + | 04/22/ | Hospital | [facility] | | | | 2011 | Encounter | MED CTR XRAY [address] | | | | | | [place] | | | | | | [place] [address] | | | | | | [phone] | | | +--------+ + + + [...] Interrogation | | | | | [facility] | (Primary Dx); | | | | | [place] [address] | Presence of | | | | | [phone] | permanent cardiac | | | | [...] | 2018 | Monitor | | [address] | Interrogation | | | | | [place], | (Primary Dx); | | | | | [place] [address] | Presence of | | | | | [phone] | permanent cardiac | | | | [...] | | | | | | [place] [address] | | | | | | [phone] | | | | | | | [...] + | [facility] Diagnostic Imaging Department | [facility] | | [address] [facility] | [facility] | | CT MYELOGRAM LUMBAR SPINE, [...] Transcribed Date/Time: | | | 04/23/2012 11:06 Medical Device Sales Representative: <Electronically Signed | | | by Jama Solis MD> 04/24/12 0730 | | + + + + + | Procedure Note | + + | Kevin, Rad Conversion - 12/29/2013 5:27 PM [facility] | | Diagnostic Imaging Department [address] [place] [address] | | CT MYELOGRAM LUMBAR SPINE, 04/22/2012 [...] <Electronically Signed by Jama Solis MD> 04/24/12 4680 | | | |L3-4: Minimal broad-based disk [...] 10:54 | |Transcribed Date/Time: 04/23/2012 11:06 | |Medical Device Sales Representative: | |<Electronically Signed by Jama Solis MD> 04/24/12 0730 | + + + +---------+ + + | Performing | Address | City/State/Zipcode | Phone Number | | Organization | | | | + +---------+ + + | [place] | | | | | [facility] | | | | + +---------+ + + CT Thoracic Spine w Contrast (04/22/2012 1:12 PM PDT) + + | Specimen | + + | | + + + + + | Narrative | Performed At | + + + | [facility] Diagnostic Imaging Department | [facility] | | [address] [facility] | [facility] | | THORACIC CT MYELOGRAM | [...] Transcribed Date/Time: 04/22/2012 17:32 | | | Medical Device Sales Representative: ARNOLD <Electronically Signed by Jama Mason | | | MD Will> 04/23/12 1039 | | + + + + + | Procedure Note | + + | Kalpesh Brown Conversion - 12/29/2013 5:27 PM [facility] | | Diagnostic Imaging Department [address] [facility] [place] | | THORACIC CT MYELOGRAM CLINICAL [...] 17:32Transcriptionist: | | <Electronically Signed by Jama Slois MD> 04/23/12 1039 | |e minimal, the [...] NORMAL RANGE FOR AGE. PLEASE SEE DETAILS ACROLYN Vigil | | | |Dictated Date/Time: 04/22/2012 16:56 | |Transcribed Date/Time: 04/22/2012 17:32 | |Medical Device Sales Representative: | |<Electronically Signed by Jama Solis MD> [...] + | [facility] Diagnostic Imaging Department | [facility] | | [address] [facility] | [facility] | | CT MYELOGRAM CERVICAL SPINE [...] Similar study from | | | 09/02/2009, [facility]. FINDINGS: Firm bony ankylosis | [...] Transcribed Date/Time: | | | 04/22/2012 17:25 Medical Device Sales Representative: <Electronically Signed | | | by Jama Solis MD> 04/23/12 1039 | | + + + + + | Procedure Note | + + | Kevin, Rad Conversion - 12/29/2013 5:27 PM [facility] | | Diagnostic Imaging Department | | [address] [facility] [place] | | | | | | [...] | | COMPARISON: Similar study from 09/02/2009, [facility]. | | | | FINDINGS: [...] | Transcribed Date/Time: 04/22/2012 17:25 | | Medical Device Sales Representative: | | <Electronically Signed by Jama Solis [...] + | [facility] Diagnostic Imaging Department | [facility] | | [address] [facility] | [facility] | | LUMBAR MYELOGRAM INJECTION FOR CT [...] Transcribed Date/Time: 04/22/2012 16:36 | | | Medical Device Sales Representative: <Electronically Signed by Jama Mason | | | MD Will> 04/23/12 1039 | | + + + + + | Procedure Note | + + | Kevin, Rad Conversion - 12/29/2013 5:27 PM [facility] | | Diagnostic Imaging Department [address] [place] [address] | | LUMBAR MYELOGRAM INJECTION FOR CT [...] 15:51 | |Transcribed Date/Time: 04/22/2012 16:36 | |Medical Device Sales Representative: | |<Electronically Signed by Jama Solis MD> 04/23/12 1039 | + + + +---------+ + + | Performing | Address | City/State/Zipcode | Phone Number | | Organization | | | | + +---------+ + + | [place] | | | | | [facility] | | | | + +---------+ + + documented in this encounter Visit Diagnoses Not on filedocumented in this encounter"
--- OUTSIDE RECORDS SUMMARY | ~2019-11-16 | XMS | Encounter Summary ---
Demographics + + + | Address | [address] | | | [place] [address] | + + + | Home Phone [...] Team Providers + +------+ + | Care Doctor Of Naturopathic Medicine Name | Role | Phone | [...] | | CENTER [address] | [address] | | | | | [place] | [place] | | | | | [address] | [address] | | | | | [phone] | | | +--------+ + + + [...] + + + +---------+ + + | Fisher-3 Fatty | CAPS, one capsule by | [...] | | | | | | | wiyot coronary | | | | | | | artery of wiyot | | | | | | | [...] Dx); | | | | | [place] [address] | Presence of | | | | | [phone] | permanent cardiac | | | | [...] Dx); | | | | | [place] [address] | Presence of | | | | | [phone] | permanent cardiac | | | | [...] | | | | | | [place] [address] | | | | | | [phone] | | | | | | | [...] [address] | [place] | [phone] | | [facility] | | [address] | | | - LABORATORY | | [...] [address] | [place] | [phone] | | [facility] | | [address] | | | - LABORATORY | | [...] [address] | [place] | [phone] | | [facility] | | [address] | | | - LABORATORY | | [...] | 0.92 | 0.70 - 1.30 | [facility] | | | | | [...] | | MEDICAL | | | | mL/min/1.56t3Kmey than | | CENTER - | | [...] [address] | [place] | [phone] | | [facility] | | [address] | | | - LABORATORY | | [...] | | | | g/dL | [facility] | | | | [...] [address] | [place] | [phone] | | [facility] | | [address] | | | - LABORATORY | | [...] [address] | [place] | [phone] | | [facility] | | [address] | | | - LABORATORY | | [...] | | | | ANGELA MARADIAGA MD ([id number]) | | | | | | on [...] | | | | | Patient Address: [address] [place] [address] | | | | | | | [place] [address], | | | | | | + + + +------+---+---+ +---+---+ | | | +---+---+ documented in this encounter
--- OUTSIDE RECORDS SUMMARY | ~2019-11-16 | XMS | Encounter Summary ---
Demographics + + + | Address | [address] | | | [place] [address] | + + + | Home Phone [...] Providers + +------+ + | Care Integrated Marketing Specialist Name | Role | Phone [...] + | 02/27/ | Telephone | [facility] | [place], | Chest Pain (Patient | | 2013 | | CARDIOLOGY [address] | Janeen, TECHNICAL AGRONOMIST [address] | having chest pain) | | | | [place], | [place], | | | | | [place] [address] | [place] [address] | | | | | [phone] | [phone] | | | | | | | [...] 2018 | Monitor | | [address] | Interrogation | | | | | [place], | (Primary Dx); | | | | | [place] [address] | Presence of | | | | | [phone] | permanent cardiac | | | | [...] 2018 | Monitor | | [address] | Interrogation | | | | | [place], | (Primary Dx); | | | | | [place] [address] | Presence of | | | | | [phone] | permanent cardiac | | | | [...] | | | | | | [place] [address] | | | | | | [phone] | | | | | | | | +--------+ + + + + documented as of this encounter Visit Diagnoses Not on filedocumented in this encounter"
--- OUTSIDE RECORDS SUMMARY | ~2019-11-16 | XMS | Encounter Summary ---
Demographics + + + | Address | [address] | | | [place] [address] | + + + | Home Phone [...] Providers + +------+ + | Care Certified Industrial Hygienist Name | Role | Phone | [...] + | 11/05/ | Telephone | [facility] | Daljit Singletary, | Chest Pain | | 2016 | | CARDIOLOGY [address] | MD [address] [place] | | | | | [place], | [place], | | | | | [place] [address] | [place] [address] | | | | | [phone] | [phone] | | | | | | | [...] Dx); | | | | | [place] [address] | Presence of | | | | | [phone] | permanent cardiac | | | | [...] | Monitor | | MD [address] [place] | Interrogation | | | | | [place], | (Primary Dx); | | | | | [place] [address] | Presence of | | | | | [phone] | permanent cardiac | | | | [...] | | | | | | [place] [address] | | | | | | [phone] | | | | | | | | +--------+ + + + + documented as of this encounter Visit Diagnoses Not on filedocumented in this encounter"
--- OUTSIDE RECORDS SUMMARY | ~2019-11-16 | XMS | Encounter Summary ---
Demographics + + + | Address | [address] [place] [address] | | | [place] [address] | + + + | Home Phone [...] [place] | | | | | [address] | | + + + + + Care Team Providers + +------+ + | Care Test Equipment Mechanic Name | Role | Phone [...] | | | | | [place] | [facility] | | | | | | [place], [place] | [place], [place] | | | | | | [address] | [address] | | | | | | Phone: | Phone: | | | | | | [phone] | [phone] | | | | | | Fax: | Fax: | | | | | | [phone] | [phone] | +--------+--------+ + + + + Encounter Details +--------+---------+ + + + | Date | Type | Department | Care Team | Description | +--------+---------+ + + + | 09/28/ | Office | Dig[facility]ive [facility] | Bridgette Rios, | Chronic diarrhea | | 2019 | Visit | [facility] at [facility] [address] | [address] | (Primary Dx); | | | | [address] | [place], [place] | Abdominal cramping; | | | | Mailcode: [place] | [address] | Unintentional weight | | | | for Health and | [phone] | loss | | | | [facility], [facility] | | | | | | [place], [place] | | | | | | [address] | | | | | | [phone] | | | +--------+---------+ + + + [...] some lab orders to [place] 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 [facility] [place] [facility] ~ Initial Consultation / New Patient [...] inflammatory bowel disease. CT scan done through [facility] November show ed mild diverticulosis [...] of Present Illness: Here with his from [place] for second opinion regarding severe abdominal cramps, isreal rrhea and weight loss following a GI illness contracted during a trip to [facility]. He reports that 2 years ago he was traveling in [place] [facility] and he had some suspicious seafood. He develo ps profound bloody diarrhea with severe abdominal pain. He was hospitalized in [facility] and w as treated with IV [...] file Gets together: Not on file Attends pentecostalism service: Not on file Active member of [...] Plan and Recommendations: 1. [facility] in [place] for stool studies as outlined above 2. If negative and symptoms persist, recommend capsule endoscopy (this could be completed b y local criminal legal assistant or he could return to [place] for this test) 3. Nortryptiline 25mg q HS with instruction to titrate to 50mg q HS after 2 weeks if tolera kevin Follow-Up: with local criminal legal assistant Counseling Time: I spent a total of 35 minutes with this patient, of which greater than 50 % of the time was spent in counseling. Specific issues that were discussed included a revie w of the disease, diagnostic tools that help in our management plans for the patient's chron ic diarrhea, abdominal cramping and weight loss and goals for treatment. Bridgette Rios MD [facility] Gastro[facility] documented in this e ncounter Plan [...]
--- OUTSIDE RECORDS SUMMARY | ~2019-11-16 | XMS | Encounter Summary ---
Demographics + + + | Address | [address] | | | [place] [address] | + + + | Home Phone [...] [address] | | | | | [place], [place] | [place], [place] | | | | | [address] | [address] | | | | | [phone] | | | +--------+ + + + [...] Dx); | | | | | [place] [address] | Presence of | | | | | [phone] | permanent cardiac | | | | [...] | Monitor | | MD [address] [place] [address] | Interrogation | | | | | [place], | (Primary Dx); | | | | | [place] [address] | Presence of | | | | | [phone] | permanent cardiac | | | | [...] | | | | | | [place] [address] | | | | | | [phone] | | | | | | | | +--------+ + + + + documented as of this encounter Visit Diagnoses Not on filedocumented in this encounter"
--- OUTSIDE RECORDS SUMMARY | ~2019-11-16 | XMS | Encounter Summary ---
Demographics + + + | Address | [address] | | | [place] [address] | + + + | Home Phone [...] + +------+ + | Care Airport Ramp Agent Name | Role | Phone | [...] Refill | | 2011 | | [facility] [place] | DO [address] | | | | | [address] | [place] | | | | | [place] | [address] | | | | | [address] | | | | | | [phone] | | | +--------+--------+ + + + [...] Monitor | | MD [address] [place] | Interrogation | | | | | [place], | (Primary Dx); | | | | | [place] [address] | Presence of | | | | | [phone] | permanent cardiac | | | | [...] Dx); | | | | | [place] [address] | Presence of | | | | | [phone] | permanent cardiac | | | | [...] | | | | | | [place], | | | | | | [place] [address] | | | | | | [phone] | | | | | | | | +--------+ + + + + documented as of this encounter Visit Diagnoses + + | Diagnosis | + + | Hypoglycemia - Primary Hypoglycemia, unspecified | + + documented in this encounter"
--- OUTSIDE RECORDS SUMMARY | ~2019-11-16 | XMS | Encounter Summary ---
Demographics + + + | Address | [address] | | | [place] [address] | + + + | Home Phone [...] Providers + +------+ + | Care Precision Optical Goods Worker Name | Role | Phone | + +------+ + PCP | Unavailable | + +------+ + Encounter Details +--------+ + + + + | Date | Type | Department | Care Team | Description | +--------+ + + + + | 01/14/ | Hospital | [facility] | Deburi, | BACKACHE NOS | | 2004 | Encounter | MEDICAL CENTER | MD [address] | | | | | CLINICAL DECISION | [place] | | | | | [address] | [place] [address] | | | | | [place], [place] | [phone] | | | | | [address] | | | | | | [phone] | | | +--------+ + + + [...] 2019 | Monitor | | [place] [address] [facility] | Interrogation | | | | | [place], | (Primary Dx); | | | | | [place] [address] | Presence of | | | | | [phone] | permanent cardiac | | | | [...] | | 2018 | Monitor | | [place] [address] [facility] | Interrogation | | | | | [place], | (Primary Dx); | | | | | [place] [address] | Presence of | | | | | [phone] | permanent cardiac | | | | [...] | | | | | | [place] [address] | | | | | | [phone] | | | | | | | | +--------+ + + + + documented as of this encounter Visit Diagnoses + + | Diagnosis | + + | Backache, unspecified | + + documented in this encounter"
--- OUTSIDE RECORDS SUMMARY | ~2019-11-16 | XMS | Clinical Summary ---
Demographics + + + | Address | [address] | | | [place] [address] | + + + | Home Phone | | + + + | Preferred Language | Unknown | + + + | Marital Status | | + + + | Restorationist Affiliation | 1013 | + + + | Race | Unknown | + + + | Ethnic Group | Unknown | + + + Author + + + | Author | [employer] (Historical as of | | | 07-08-19) | + + + | Organization | [facility] (Historical as of | | | 07-08-19) [...] + +------+ + | Care Truck Driver Heavy Name | Role | Phone | + [...] + | AUTO INSURANCE | AUTO | [id number] | | | | | | INSURA | | | | | | | NCE | | | | | | | GENERI | | | | | | | C | | | | | + +--------+ +------+-------+ + | AUTO INSURANCE | AUTO | [id number] | | | | | | INSURA | [id number] | | | | | | NCE | | | | | | | GENERI | | | | | | | C | | | | | + +--------+ +------+-------+ + | MEDICARE | MEDICA | [id number] | | | [address] | | | RE | | | | [place], [place] [address] | | | IP-OP | | | | | + +--------+ +------+-------+ + | [facility] | [place] | [id number] | | | | | | | [...] | Self | [birth year] | Home: | [address] | | | al/Fam | | 9 | +1- | [place], [place] | | | roxanne | | | [address] | [address] | + +--------+ +--------+ + + | AMILCAR GAY | Third | Self | [birth year] | Home: | [address] | | | [employer] | | 9 | +- | [place], [place] | | | Liabil | | | [phone] | [address] | | | ity | | | | | + +--------+ +--------+ + + | AMILCAR GAY | Third | Self | [birth year] | Home: | [address] | | | [employer] | | 1960 | +- | [place], [place] | | | Liabil | | | [phone] | [address] | | | ity | | | | | + +--------+ +--------+ + +
--- OUTSIDE RECORDS SUMMARY | ~2019-11-16 | XMS | Encounter Summary ---
Demographics + + + | Address | [address] | | | [place] [address] | + + + | Home Phone [...] Providers + +------+ + | Care Jewelry Polisher Name | Role | Phone | [...] [address] | | | | | [place], | [place], | | | | | [place] [address] | [place] [address] | | | | | [phone] | [phone] | | | | | | | [...] | Monitor | | MD [address] | Interrogation | | | | | [place], | (Primary Dx); | | | | | [place] [address] | Presence of | | | | | [phone] | permanent cardiac | | | | [...] 2018 | Monitor | | MD [facility] | Interrogation | | | | | [place], | (Primary Dx); | | | | | [place] [address] | Presence of | | | | | [phone] | permanent cardiac | | | | [...] W | | | | | | [place], | | | | | | [place] [address] | | | | | | [phone] | | | | | | | | +--------+ + + + + documented as of this encounter Visit Diagnoses Not on filedocumented in this encounter"
--- OUTSIDE RECORDS SUMMARY | ~2019-11-16 | XMS | Encounter Summary ---
Demographics + + + | Address | [address] | | | [place] [address] | + + + | Home Phone [...] 2019 | | GASTROENTEROLOGY | [address], [place] | Visit (wants to | | | | [address] [place] | [address] [place] | cancel his office | | | | [address] [place] | [address] | appointment today) | | | | [address] | | | | | | [phone] | | | +--------+ + + + [...] Dx); | | | | | [place] [address] | Presence of | | | | | [phone] | permanent cardiac | | | | [...] | 2018 | Monitor | | [address] | Interrogation | | | | | [place], | (Primary Dx); | | | | | [place] [address] | Presence of | | | | | [phone] | permanent cardiac | | | | [...] W | | | | | | [place], | | | | | | [place] [address] | | | | | | [phone] | | | | | | | | +--------+ + + + + documented as of this encounter Visit Diagnoses Not on filedocumented in this encounter"
--- OUTSIDE RECORDS SUMMARY | ~2019-11-16 | XMS | Encounter Summary ---
Demographics + + + | Address | [address] | | | [place] [address] | + + + | Home Phone [...] | | | | CENTER [address] | [place], [place] | (Primary Dx) | | | | [place], [place] | [address] | | | | | [address] | | | | | | [phone] | | | +--------+ + + + [...] + + + +---------+ + + | Cobb-3 Fatty | CAPS, one capsule by | [...] | Monitor | | MD [address] | Interrogation | | | | | [place], | (Primary Dx); | | | | | [place] [address] | Presence of | | | | | [phone] | permanent cardiac | | | | [...] | Monitor | | MD [address] | Interrogation | | | | | [place], | (Primary Dx); | | | | | [place] [address] | Presence of | | | | | [phone] | permanent cardiac | | | | [...] W | | | | | | [place], | | | | | | [place] [address] | | | | | | [phone] | | | | | | | [...] | 0.84 | 0.60 - 1.30 | [facility] | | | | | mg/dL [...] mL/min/1.73m2 | [facility] | | | [place] | RATE,ESTIMATED | | MEDICAL | | | | mL/min/1.20u9Onnv than | | CENTER - | | [...] [address] | [place] | [phone] | | [facility] | | [address] | | | - LABORATORY | | [...] Brown Results In - 01/24/2017 1:16 PM [facility] PORTABLE CHEST X-RAY: 01/24/2017 12:28 PM [...] | | | | ANGELA MARADIAGA MD ([id number]) | | | | | | on [...] | | | | | | [employer] | | | | [...] [address] | [place] | [phone] | | [facility] | | [address] | | | - LABORATORY | | [...] [address] | [place] | [phone] | | [facility] | | [address] | | | - LABORATORY | | [...]
--- OUTSIDE RECORDS SUMMARY | ~2019-11-16 | XMS | Encounter Summary ---
Demographics + + + | Address | [address] | | | [place] [address] | + + + | Home Phone [...] Providers + +------+ + | Care Black Powder Glazing Operator Name | Role | Phone | [...] 2018 | | GASTROENTEROLOGY | [address] [place], [place] | about prep for | | | | [address] [place] | [address] [place], [place] | procedure) | | | | [address] [place], [place] | [address] | | | | | [address] | | | | | | [phone] | | | +--------+ + + + [...] Dx); | | | | | [place] [address] | Presence of | | | | | [phone] | permanent cardiac | | | | [...] Dx); | | | | | [place] [address] | Presence of | | | | | [phone] | permanent cardiac | | | | [...] | | | | | | [place] [address] | | | | | | [phone] | | | | | | | | +--------+ + + + + documented as of this encounter Visit Diagnoses Not on filedocumented in this encounter"
--- OUTSIDE RECORDS SUMMARY | ~2019-11-16 | XMS | Encounter Summary ---
Demographics + + + | Address | [address] | | | [place] [address] | + + + | Home Phone [...] Providers + +------+ + | Care Pallet Rectifier Name | Role | Phone | + [...] + | 01/25/ | Telephone | [facility] | Daljit Singletary, | Appointment | | 2017 | | CARDIOLOGY [address] | MD [address] [place] | | | | | [place], | [place], | | | | | [place] [address] | [place] [address] | | | | | [phone] | [phone] | | | | | | | [...] Interrogation | | | | | [place], | (Primary Dx); | | | | | [place] [address] | Presence of | | | | | [phone] | permanent cardiac | | | | [...] 2018 | Monitor | | [address] [place] | Interrogation | | | | | [place], | (Primary Dx); | | | | | [place] [address] | Presence of | | | | | [phone] | permanent cardiac | | | | [...] | | | | | | [place] [address] | | | | | | [phone] | | | | | | | | +--------+ + + + + documented as of this encounter Visit Diagnoses Not on filedocumented in this encounter"
--- OUTSIDE RECORDS SUMMARY | ~2019-11-16 | XMS | Encounter Summary ---
Demographics + + + | Address | [address] | | | [place] [address] | + + + | Home Phone [...] Providers + +------+ + | Care Service Worker Name | Role | Phone | [...] CARDIOLOGY [address] | MD [address] [place] | Interrogation | | | | [place], | [place], | (Primary Dx); | | | | [place] [address] | [place] [address] | Pacemaker; | | | | [phone] | [phone] | Sinoatrial node | | | | [...] Dx); | | | | | [place] [address] | Presence of | | | | | [phone] | permanent cardiac | | | | [...] | 2018 | Monitor | | [address] [place] | Interrogation | | | | | [place], | (Primary Dx); | | | | | [place] [address] | Presence of | | | | | [phone] | permanent cardiac | | | | [...] | | | | | | [place] [address] | | | | | | [phone] | | | | | | | [...]
--- OUTSIDE RECORDS SUMMARY | ~2019-11-16 | XMS | Encounter Summary ---
Demographics + + + | Address | [address] | | | [place] [address] | + + + | Home Phone [...] Providers + +------+ + | Care Financial Aid Advisor Name | Role | Phone | [...] + + | 04/24/ | Office | [facility] | [place], | Symptomatic PVCs | | 2012 | Visit | CARDIOLOGY [address] | [address] | (Primary Dx); CAD; | | | | [place], | [place], | Hyperlipidemia; | | | | [place] [address] | [place] [address] | PACEMAKER, PERMANENT | | | | [phone] | [phone] | - [employer] | | | | [...] tablet by mouth Daily. 30 tablet 6 [place]-3 Fatty Acids (SALMON OIL-1000 PO) CAPS, one [...] Reviewed records from PCP and notes from [facility]. Assessment: 1. Symptomatic PVCs status post ablation: [...] to go back in 3 days to [place] for an attempt of ablation under general [...] He is upgraded to class I of [place] Heart Ass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 There are no [...] ensure accuracy; however, inadvertent computerized manager environmental health errors may be pre sent. documented in this encounter Plan of Treatment +--------+ + + + + | Date | Type | Specialty | Care Team | Description | +--------+ + + + + | 11/20/ | Implant | Cardiology | Daljit Singletary, | Remote Device | | 2018 | Monitor | | MD [address] | Interrogation | | | | | [place], | (Primary Dx); | | | | | [place] [address] | Presence of | | | | | [phone] | permanent cardiac | | | | [...] | Monitor | | MD [address] [place] | Interrogation | | | | | [place], | (Primary Dx); | | | | | [place] [address] | Presence of | | | | | [phone] | permanent cardiac | | | | [...] | | | | | | [place] [address] | | | | | | [phone] | | | | | | | | +--------+ + + + + documented as of this encounter Visit Diagnoses + + | Diagnosis | + + | Symptomatic PVCs - Primary Other premature beats | + + | CAD Coronary atherosclerosis of unspecified type of vessel, capitan grande band or graft | + + | Hyperlipidemia Other and unspecified hyperlipidemia | + + | PACEMAKER, PERMANENT - [employer]TR[employer]IC 06/14/09GRANT Cardiac pacemaker in situ | + + documented in this encounter
--- OUTSIDE RECORDS SUMMARY | ~2019-11-16 | XMS | Encounter Summary ---
Demographics + + + | Address | [address] | | | [place] [address] | + + + | Home Phone [...] Providers + +------+ + | Care Sales Technician Name | Role | Phone | + +------+ + PCP | Unavailable | + +------+ + Encounter Details +--------+ + + + + | Date | Type | Department | Care Team | Description | +--------+ + + + + | 05/28/ | [facility] | [facility] | Evan Gandara MD | | | 2008 | Encounter | MED CTR LABORATORY | [address] [facility] | | | | | [address] | [place] | | | | | [place] | [address] | | | | | [address] | | | | | | [phone] | | | +--------+ + + + [...] Interrogation | | | | | [place], | (Primary Dx); | | | | | [place] [address] | Presence of | | | | | [phone] | permanent cardiac | | | | [...] Interrogation | | | | | [place], | (Primary Dx); | | | | | [place] [address] | Presence of | | | | | [phone] | permanent cardiac | | | | [...] W | | | | | | [place], | | | | | | [place] [address] | | | | | | [phone] | | | | | | | | +--------+ + + + + documented as of this encounter Visit Diagnoses Not on filedocumented in this encounter"
--- OUTSIDE RECORDS SUMMARY | ~2019-11-16 | XMS | Encounter Summary ---
Demographics + + + | Address | [address] | | | [place] [address] | + + + | Home Phone [...] Providers + +------+ + | Care Road Test Examiner Name | Role | Phone | + +------+ + | Michael Amanda DO | PCP | | + +------+ + Encounter Details +--------+ + + + + | Date | Type | Department | Care Team | Description | +--------+ + + + + | 06/26/ | Hospital | [facility] | Michael Amanda, | Diplopia | | 2012 | Encounter | MED CTR LABORATORY | DO [address] | | | | | [address] [place] | [place], [place] | | | | | [place], [place] | [address] | | | | | [address] | | | | | | [phone] | | | +--------+ + + + [...] + + + +---------+ + + | [place]-3 Fatty | CAPS, one capsule by | [...] 2018 | Monitor | | [address] | Interrogation | | | | | [place], | (Primary Dx); | | | | | [place] [address] | Presence of | | | | | [phone] | permanent cardiac | | | | [...] 2018 | Monitor | | [address] | Interrogation | | | | | [place], | (Primary Dx); | | | | | [place] [address] | Presence of | | | | | [phone] | permanent cardiac | | | | [...] W | | | | | | [place], | | | | | | [place] [address] | | | | | | [phone] | | | | | | | [...] + | [facility] | [address] | [place] | [phone] | | [facility] | | [address] | | | - LABORATORY | | | | + + + + + | [facility] | [address] | [place] | | | [facility] | | [address] | | | - LABORATORY | | [...] performed on the Javid | uIU/mL | [facility] | | | | [...] + | [facility] | [address] | [place] | [phone] | | [facility] | | [address] | | | - LABORATORY | | | | + + + + + | [facility] | [address] | [place], [place] | | | [facility] | | [address] | | | - LABORATORY | | | | + + + + + Sedimentation Rate (06/26/2013 3:39 PM PDT) + +-------+ + + + | Component | Value | Ref Range | Performed | Pathologist | | | | | At | Signature | + +-------+ + + + | ESR | 4 | 0 - 20 mm/hr | [facility] | | | | | [...] [address] | [place] | [phone] | | [facility] | | [address] | | | - LABORATORY | | | | + + + + + | [facility] | [address] | [place], [place] | | | [facility] | | [address] | | | - LABORATORY | | [...] + | [facility] | [address] | [place], [place] | [phone] | | [facility] | | [address] | | | - LABORATORY | | | | + + + + + | [facility] | [address] | [place], [place] | | | [facility] | | [address] | | | - LABORATORY | | [...] + | [facility] | [address] | [place] | [phone] | | [facility] | | [address] | | | - LABORATORY | | | | + + + + + | [facility] | [address] | [place] | | | [facility] | | [address] | | | - LABORATORY | | [...] performed on the Javid | uIU/mL | [facility] | | | | [...] + | [facility] | [address] | [place] | [phone] | | [facility] | | [address] | | | - LABORATORY | | | | + + + + + | [facility] | [address] | [place] | | | [facility] | | [address] | | | - LABORATORY | | | | + + + + + documented in this encounter Visit Diagnoses + + | Diagnosis | + + | Diplopia | + + documented in this encounter"
--- OUTSIDE RECORDS SUMMARY | ~2019-11-16 | XMS | Encounter Summary ---
Demographics + + + | Address | [address] | | | [place] [address] | + + + | Home Phone [...] Team Providers + +------+ + | Care Twist Maker Name | Role | Phone | [...] + + | 05/14/ | Office | [facility] | [place], | Coronary artery | | 2013 | Visit | CARDIOLOGY [address] | [address] | disease (Primary | | | | [place], | [place], | Dx); Hypertension; | | | | [place] [address] | [place] [address] | Hyperlipidemia; | | | | [phone] | [phone] | Syncope; Other chest | | | [...] needed for Chest pain. 25 tablet 12 [place]-3 Fatty Acids (SALMON OIL-1000 PO) CAPS, one [...] attenuation cannot completely be ruled out. [facility] 12/25/13, shows noncritical coronary artery [...] exercising. He is in class II of [place] Heart Ass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 There are no [...] to go back in 3 days to [place] for an attempt of ablation under general [...] palpitations.. He is in class II of [place] Heart Ass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 There are no [...] bring in his blood pressure logs from [facility] 5. Lightheadedness and dizziness/ presyncope: A. [...] made to ensure accuracy; however, inadvertent computerized pit hand errors may be pre sent. Electronically [...] Dx); | | | | | [place] [address] | Presence of | | | | | [phone] | permanent cardiac | | | | [...] Dx); | | | | | [place] [address] | Presence of | | | | | [phone] | permanent cardiac | | | | [...] | | | | | | [place] [address] | | | | | | [phone] | | | | | | | [...] of unspecified type of | | vessel, cahto or graft | + + | Hypertension Unspecified essential hypertension | + + | Hyperlipidemia Other and unspecified hyperlipidemia | + + | Syncope Syncope and collapse | + + | Other chest pain | + + | Chest pain Chest pain, unspecified | + + documented in this encounter
--- OUTSIDE RECORDS SUMMARY | ~2019-11-16 | XMS | Encounter Summary ---
Demographics + + + | Address | [address] | | | [place] [address] | + + + | Home Phone [...] Providers + +------+ + | Care Stevedore Dock Name | Role | Phone | [...] | | CARDIOLOGY [address] | [address] [place] | | | | | [place], | [place], | | | | | [place] [address] | [place] [address] | | | | | [phone] | | | | | | | [...] | Monitor | | MD [address] [place] | Interrogation | | | | | [place], | (Primary Dx); | | | | | [place] [address] | Presence of | | | | | [phone] | permanent cardiac | | | | [...] | Monitor | | MD [address] [place] | Interrogation | | | | | [place], | (Primary Dx); | | | | | [place] [address] | Presence of | | | | | [phone] | permanent cardiac | | | | [...] | | | | | | [place] [address] | | | | | | [phone] | | | | | | | | +--------+ + + + + documented as of this encounter Visit Diagnoses Not on filedocumented in this encounter"
--- OUTSIDE RECORDS SUMMARY | ~2019-11-16 | XMS | Encounter Summary ---
Demographics + + + | Address | [address] | | | [place] [address] | + + + | Home Phone [...] Providers + +------+ + | Care County Tax Assessor Name | Role | Phone | [...] [address] | | | | | [place], | [place], | | | | | [place] [address] | [place] [address] | | | | | [phone] | [phone] | | | | | | | [...] Interrogation | | | | | [place], | (Primary Dx); | | | | | [place] [address] | Presence of | | | | | [phone] | permanent cardiac | | | | [...] | Monitor | | MD [address] [place] | Interrogation | | | | | [place], | (Primary Dx); | | | | | [place] [address] | Presence of | | | | | [phone] | permanent cardiac | | | | [...] | | | | | | [place] [address] | | | | | | [phone] | | | | | | | | +--------+ + + + + documented as of this encounter Visit Diagnoses Not on filedocumented in this encounter"
--- OUTSIDE RECORDS SUMMARY | ~2019-11-16 | XMS | Encounter Summary ---
Demographics + + + | Address | [address] | | | [place] [address] | + + + | Home Phone [...] Team Providers + +------+ + | Care Viscosity Worker Name | Role | Phone | [...] | | | DDD | Scotty C, SORTING COWS WORKER | [facility] | | | | | (degenerativ | [address] [facility] | | | | | e disc | [facility] | MEDICAL | | | | | disease), | [address] | CENTER [address] | | | | | lumbar | B | [place] | | | | | Chronic | [place], [place] | [place], | | | | | left-sided | [address] | [place] [address] | | | | | low back | Phone: | Phone: | | | | | pain with | [phone] | [phone] | | | | | left-sided | Fax: | Fax: | | | | | sciatica | [phone] | [phone] | | | | | History of [...] | | | DDD | Scotty C, SORTING COWS WORKER | [address] [place] | | | | | (degenerativ | [address] | [place], | | | | | e disc | [place] | [place] [address] | | | | | disease), | DRIVE [address] | Phone: | | | | | lumbar | B | [phone] | | | | | Chronic | [place], [place] | Fax: | | | | | left-sided | [address] | [phone] | | | | | low back | Phone: | | | | | | pain with | [phone] | | | | | | left-sided | Fax: | | | | | | sciatica | [phone] | | | | | | History [...] + + | 07/01/ | Hospital | [facility] | Scotty Galdamez, | DDD (degenerative | | 2018 | Encounter | MED CTR [address] | SORTING COWS WORKER [address] [facility] | disc disease), | | | | [place], | [address] | lumbar; [place] | | | | [place] [address] | [place] [address] | left-sided low back | | | | [phone] | [phone] | pain with left-sided | | | [...] Interrogation | | | | | [place], | (Primary Dx); | | | | | [place] [address] | Presence of | | | | | [phone] | permanent cardiac | | | | [...] | 2018 | Monitor | | [address] [place] | Interrogation | | | | | [place], | (Primary Dx); | | | | | [place] [address] | Presence of | | | | | [phone] | permanent cardiac | | | | [...] | | | | | | [place], | | | | | | [place] [address] | | | | | | [phone] | | | | | | | [...]
--- OUTSIDE RECORDS SUMMARY | ~2019-11-16 | XMS | Encounter Summary ---
Demographics + + + | Address | [address] | | | [place] [address] | + + + | Home Phone [...] Team Providers + +------+ + | Care Parasitology Teacher Name | Role | Phone | + +------+ + PCP | Unavailable | + +------+ + Encounter Details +--------+ + + + + | Date | Type | Department | Care Team | Description | +--------+ + + + + | 05/02/ | [facility] | [facility] | Jonathan, | | | 2009 | Encounter | MED CTR EMERGENCY | Martell Cr MD [address] | | | | | CENTER [address] [place] | [place] | | | | | [place] | [place] [address] | | | | | [address] | [phone] | | | | | [phone] | | | +--------+ + + + [...] Interrogation | | | | | [place], | (Primary Dx); | | | | | [place] [address] | Presence of | | | | | [phone] | permanent cardiac | | | | [...] Interrogation | | | | | [place], | (Primary Dx); | | | | | [place] [address] | Presence of | | | | | [phone] | permanent cardiac | | | | [...] | | | | | | [place], | | | | | | [place] [address] | | | | | | [phone] | | | | | | | | +--------+ + + + + documented as of this encounter Visit Diagnoses Not on filedocumented in this encounter"
--- OUTSIDE RECORDS SUMMARY | ~2019-11-16 | XMS | Encounter Summary ---
Demographics + + + | Address | [address] | | | [place] [address] | + + + | Home Phone [...] Providers + +------+ + | Care Precision Mechanical Instrument Maker Name | Role | Phone [...] + | 07/01/ | Telephone | [facility] | Daljit Singletary, | Other (EKG) | | 2017 | | CARDIOLOGY [address] | MD [address] [place] | | | | | [place], | [place], | | | | | [place] [address] | [place] [address] | | | | | [phone] | [phone] | | | | | | | [...] Dx); | | | | | [place] [address] | Presence of | | | | | [phone] | permanent cardiac | | | | [...] 2018 | Monitor | | [address] [place] | Interrogation | | | | | [place], | (Primary Dx); | | | | | [place] [address] | Presence of | | | | | [phone] | permanent cardiac | | | | [...] | | | | | | [place] [address] | | | | | | [phone] | | | | | | | | +--------+ + + + + documented as of this encounter Visit Diagnoses Not on filedocumented in this encounter"
--- OUTSIDE RECORDS SUMMARY | ~2019-11-16 | XMS | Encounter Summary ---
Demographics + + + | Address | [address] | | | [place] [address] | + + + | Home Phone [...] +------+ + | Care Associate Professor Of Pathology Name | Role | Phone | + +------+ + | Kirk French MD | PCP | | + +------+ + Encounter Details +--------+ + + + + | Date | Type | Department | Care Team | Description | +--------+ + + + + | 06/19/ | Orders Only | [facility] | Fabrice Hylton, | Abnormal weight | | 2019 | | SYSTEM GENERIC OP | MD [address] | loss; Anxiety | | | | CONVERSION [address] | [address] [place], [place] | disorder; Chronic | | | | [address] [place], [place] | [address] | pain syndrome; | | | | [address] | | Obesity; Neuralgia | | | | [phone] | | and neuritis, | | | [...] Dx); | | | | | [place] [address] | Presence of | | | | | [phone] | permanent cardiac | | | | [...] Dx); | | | | | [place] [address] | Presence of | | | | | [phone] | permanent cardiac | | | | [...] | | | | | | [place] [address] | | | | | | [phone] | | | | | | | [...]
--- OUTSIDE RECORDS SUMMARY | ~2019-11-16 | XMS | Encounter Summary ---
Demographics + + + | Address | [address] | | | [place] [address] | + + + | Home Phone [...] Providers + +------+ + | Care Airport Traffic Controller Name | Role | Phone [...] | Telephone | [facility] [place] | [place], | LABS | | 2019 | | CARDIOLOGY [address] | Janeen BASKET OPERATOR [address] | | | | | [place], | [place], | | | | | [place] [address] | [place] [address] | | | | | [phone] | [phone] | | | | | | | [...] | Monitor | | MD [address] [place] | Interrogation | | | | | [place], | (Primary Dx); | | | | | [place] [address] | Presence of | | | | | [phone] | permanent cardiac | | | | [...] | Monitor | | MD [address] [place] | Interrogation | | | | | [place], | (Primary Dx); | | | | | [place] [address] | Presence of | | | | | [phone] | permanent cardiac | | | | [...] | | | | | | [place], | | | | | | [place] [address] | | | | | | [phone] | | | | | | | [...]
--- OUTSIDE RECORDS SUMMARY | ~2019-11-16 | XMS | Encounter Summary ---
Demographics + + + | Address | [address] | | | [place] [address] | + + + | Home Phone [...] + +------+ + | Care Motion Picture Narrator Name | Role | Phone | + [...] unspecified | [address] | [address] | | | | | type | [address] | [place], | | | | | Procedures | [place], | [place] | | | | | [place] | [place] [address] | [address] | | | | | Stress Test | Phone: | Phone: | | | | | (Vasodilator | [phone] | [phone] | | | | | ) CHG | Fax: | Fax: | | | | | MYOCARDIAL | [phone] | [phone] | | | | | SPECT | [...] unspecified | [address] | [address] | | | | | type | [address] | [place], | | | | | Procedures | [place], | [place] | | | | | [place] | [place] [address] | [address] | | | | | Stress Test | Phone: | Phone: | | | | | (Vasodilator | [phone] | [phone] | | | | | ) CHG | Fax: | Fax: | | | | | MYOCARDIAL | [phone] | [phone] | | | | | SPECT | [...] + + | 07/21/ | Hospital | [facility] | Daljit Singletary, | Chest pain, | | 2018 | Encounter | MED CTR NUCLEAR | MD [address] | unspecified type | | | | MEDICINE [address] | [address], | | | | | [place], | [place] [address] | | | | | [place] [address] | [phone] | | | | | [phone] | | | | | | | Orthodontic TechnicianPavel | | +--------+ + + + + [...] + + + +---------+ + + | [place]-3 Fatty | CAPS, one capsule by | [...] Dx); | | | | | [place] [address] | Presence of | | | | | [phone] | permanent cardiac | | | | [...] Dx); | | | | | [place] [address] | Presence of | | | | | [phone] | permanent cardiac | | | | [...] | | | | | | [place], | | | | | | [place] [address] | | | | | | [phone] | | | | | | | [...]
--- OUTSIDE RECORDS SUMMARY | ~2019-11-16 | XMS | Encounter Summary ---
Demographics + + + | Address | [address] | | | [place] [address] | + + + | Home Phone [...] Providers + +------+ + | Care Die Attaching Machine Tender Name | Role | Phone | + +------+ + PCP | Unavailable | + +------+ + Encounter Details +--------+ + + + + | Date | Type | Department | Care Team | Description | +--------+ + + + + | 09/24/ | [facility] | [facility] | Evan Gandara MD | | | 2005 | Encounter | MED CTR XRAY [address] | [address] [facility] | | | | | [address] [place] | [place] | | | | | [place] [address] | [address] | | | | | [phone] | | | +--------+ + + + [...] Dx); | | | | | [place] [address] | Presence of | | | | | [phone] | permanent cardiac | | | | [...] Dx); | | | | | [place] [address] | Presence of | | | | | [phone] | permanent cardiac | | | | [...] W | | | | | | [address] [place], | | | | | | [place] [address] | | | | | | [phone] | | | | | | | | +--------+ + + + + documented as of this encounter Visit Diagnoses Not on filedocumented in this encounter"
--- OUTSIDE RECORDS SUMMARY | ~2019-11-16 | XMS | Encounter Summary ---
Demographics + + + | Address | [address] | | | [place] [address] | + + + | Home Phone [...] Team Providers + +------+ + | Care Hebrew Teacher Name | Role | Phone | [...] 2012 | | Conversion Location | [address] | | | | | [phone] | [address] [place], | | | | | | [place] [address] | | | | | | [phone] | | | | | | | [...] Dx); | | | | | [place] [address] | Presence of | | | | | [phone] | permanent cardiac | | | | [...] | 2018 | Monitor | | [address] | Interrogation | | | | | [place], | (Primary Dx); | | | | | [place] [address] | Presence of | | | | | [phone] | permanent cardiac | | | | [...] | | | | | | [place] [address] | | | | | | [phone] | | | | | | | | +--------+ + + + + documented as of this encounter Visit Diagnoses Not on filedocumented in this encounter"
--- OUTSIDE RECORDS SUMMARY | ~2019-11-16 | XMS | Encounter Summary ---
Demographics + + + | Address | [address] | | | [place] [address] | + + + | Home Phone [...] Providers + +------+ + | Care Internal Grinder Name | Role | Phone | [...] | | | | | region | [address] | | | | | | Procedures | [address] | | | | | | CT | [place], [place] | | | | | | Myelography | [address] | | | | | | Lumbar Spine | Phone: | | | | | | | [phone] | | | | | | | Fax: | | | | | | | [phone] | | +--------+--------+ + + + + [...] | | | | | region | [address] | | | | | | Procedures | [address] | | | | | | CT | [place], [place] | | | | | | Myelography | [address] | | | | | | Lumbar Spine | Phone: | | | | | | | [phone] | | | | | | | Fax: | | | | | | | [phone] | | +--------+--------+ + + + + Encounter Details +--------+ + + + + | Date | Type | Department | Care Team | Description | +--------+ + + + + | 04/07/ | Hospital | [facility] | Pia Akhtar | Spinal stenosis, | | 2016 | Encounter | MED CTR CT [address] | MD [address] | lumbar region | | | | [place], | [address] | | | | | [place] [address] | [place] [address] | | | | | [phone] | [phone] | | | | | | | [...] + + + +---------+ + + | [place]-3 Fatty | CAPS, one capsule by | [...] Interrogation | | | | | [place], | (Primary Dx); | | | | | [place] [address] | Presence of | | | | | [phone] | permanent cardiac | | | | [...] Interrogation | | | | | [place], | (Primary Dx); | | | | | [place] [address] | Presence of | | | | | [phone] | permanent cardiac | | | | [...] | | | | | | [place] [address] | | | | | | [phone] | | | | | | | [...] + + | Performing | Address | City/State[facility] | Phone Number | | Organization | | | | + +---------+ + + | [facility] | | | | + +---------+ + + documented in this encounter Visit Diagnoses + + | Diagnosis | + + | Spinal stenosis, lumbar region | + + documented in this encounter"
--- OUTSIDE RECORDS SUMMARY | ~2019-11-16 | XMS | Encounter Summary ---
Demographics + + + | Address | [address] | | | [place] [address] | + + + | Home Phone [...] Providers + +------+ + | Care Associate Director Of Development Name | Role | Phone | [...] + | 06/24/ | Telephone | [facility] | Daljit Singletary, | Lab Order | | 2017 | | CARDIOLOGY [address] | MD [address] [place] | | | | | [place], | [place], | | | | | [place] [address] | [place] [address] | | | | | [phone] | [phone] | | | | | | | [...] Dx); | | | | | [place] [address] | Presence of | | | | | [phone] | permanent cardiac | | | | [...] 2018 | Monitor | | [address] | Interrogation | | | | | [place], | (Primary Dx); | | | | | [place] [address] | Presence of | | | | | [phone] | permanent cardiac | | | | [...] W | | | | | | [place], | | | | | | [place] [address] | | | | | | [phone] | | | | | | | [...] 06/24/2018, Expires: | | | | | [place] [facility] | 06/24/2019 | | | | | [place] | | | | | | heart [...]
--- OUTSIDE RECORDS SUMMARY | ~2019-11-16 | XMS | Encounter Summary ---
Demographics + + + | Address | [address] | | | [place] [address] | + + + | Home Phone [...] Providers + +------+ + | Care Patient Transition Specialist Name | Role | Phone | [...] + + | 04/07/ | Office | [facility] | Matthew Uriarte | Left ureteral | | 2019 | Visit | [address] | MD Tawanna [address] | calculus (Primary | | | | [place], [place] | [place] | Dx); Kidney stones | | | | [address] | [address] | | | | | [phone] | | | +--------+---------+ + + + [...] BMP YOU WILL NEED TO BRING A CRYSTAL FLAT GRINDER WITH YOU THE DAY OF SURGERY. Call us at [phone] with any questions. [] Pain management booklet [...] [employer] Peptic ulcer disease Premature ventricular contraction [facility] care 06/26/2013 LAST PSA:12/16/2010 RESULT:0.14 LAST [...] Location: [facility] MEDICAL PROCEDURE UNIT VASECTOMY Family [...] EVERY DAY, Disp: 90 tablet, Rfl: 3 [facility] Natural [...] 911, Disp: 100 ta blet, Rfl: 3 [place]ar[place]-3 Fatty Acids (SALMON OIL-1000 PO), CAPS, one capsule by mouth daily twice daily , Disp: , Rfl: ondansetron (ZOFRAN ODT) 4 mg disintegrating tablet, Take 4 mg by mouth., Disp: , Rfl: ONE TOUCH DELICA LANCETS [facility], Check glucose as needed for hypoglycemia, Disp: [...] have not thoroughly proofread this note, and securities research analyst errors are very likely to occur. CC: [...] Dx); | | | | | [place] [address] | Presence of | | | | | [phone] | permanent cardiac | | | | [...] Dx); | | | | | [place] [address] | Presence of | | | | | [phone] | permanent cardiac | | | | [...] | | | | | | [place] [address] | | | | | | [phone] | | | | | | | [...]
--- OUTSIDE RECORDS SUMMARY | ~2019-11-16 | XMS | Encounter Summary ---
Demographics + + + | Address | [address] | | | [place] [address] | + + + | Home Phone [...] Providers + +------+ + | Care Transfer Engineer Name | Role | Phone | [...] [place], [place] | | | | | [place] | | [address] Phone: | | | | | CYSTO/URETER | | [phone] | | | | | O | | Fax: | | | | | W/LITHOTRIPS | | [phone] | | | | | Y &INDWELL [...] + + | 04/13/ | Hospital | [facility] | Matthew Uriarte | Preoperative | | 2019 | Encounter | MED CTR OR INTRA OP | Dahl, MD [address] | clearance (Primary | | | | [address] | [place] | Dx); Left ureteral | | | | [place], [place] | [address] | calculus; Kidney | | | | [address] | | stones | | | | [phone] | | | +--------+ + + + [...] | | | | | | | [place] coronary | | | | | | | artery of [place] | | | | | | | [...] Interrogation | | | | | [place], | (Primary Dx); | | | | | [place] [address] | Presence of | | | | | [phone] | permanent cardiac | | | | [...] 2018 | Monitor | | [address] | Interrogation | | | | | [place], | (Primary Dx); | | | | | [place] [address] | Presence of | | | | | [phone] | permanent cardiac | | | | [...] | | | | | [place], | | | | | | [place] [address] | | | | | | [phone] | | | | | | | [...] [facility] | | | | | | at:[phone]. | | | | + + + [...] | REFERENCE LAB | | RAUL Emmanuel [phone] Guest Room Attendant: Yeny Rios MD, Phone: | ARSH - KINA | | [phone] | | + + + + + + + + | Performing | Address | City/State/Zipcode | Phone Number | | Organization | | | | + + + + + | REFERENCE LAB | [address] | [place] [address] | [phone] | | [facility] | [address] [...] [address] | [place] | [phone] | | [facility] | | [address] | | | - LABORATORY | | [...] + | [facility] | [address] | [place] | [phone] | | [facility] | | [address] | | | - LABORATORY | | [...] [address] | [place] | [phone] | | [facility] | | [address] | | | - LABORATORY | | [...] + | [facility] | [address] | [place] | [phone] | | [facility] | | [address] | | | - LABORATORY | | [...] | Juan Diego MARTINEZ | | | [facility]ER[facility] LEONEAN | RATE,ESTIMATED | | MEDICAL | | | | mL/min/1.36c7Cvab than | | CENTER - | | [...] ST. | [address] | [place] | [phone] | | [facility] | | [address] | | | - LABORATORY | | [...] | | | dose on [facility] 04/13/19 at 1400, | | | Start 8 hours after pre-op dose., | | | Post-op/Phase II | | + +---+ | | | + +---+ | albuterol 2.5 mg/3 mL nebulizer | | | solution 2.5 mg 2.5 mg, | | | Nebulization, ONCE PRN, Wheezing, | | | Starting [facility] 04/13/19 at 0917, | | | [...] if SBP <90., Starting | | | [facility] 04/13/19 at 0917, Hold if HR > | | | 100. Maximum total dose 20mg., | | | Recovery/Phase I | | + +---+ | | | + +---+ | HYDROmorphone (DILAUDID) | | | injection 0.2-0.4 mg 0.2-0.4 mg, | | | Intravenous, EVERY 1 HOUR PRN, | | | Pain, Starting [facility] 04/13/19 at | | | 1046, [...] | | | | | | | [id number]-[id number] use of at least | | | [...]
--- OUTSIDE RECORDS SUMMARY | ~2019-11-16 | XMS | Encounter Summary ---
Demographics + + + | Address | [address] | | | [place] [address] | + + + | Home Phone [...] Team Providers + +------+ + | Care Maternity Floor Supervisor Name | Role | Phone | [...] 2016 | | CARDIOLOGY [address] | INVESTOR RELATIONS COORDINATOR [address] | | | | | [place], | [place], [place] | | | | | [place] [address] | [address] | | | | | [phone] | | | +--------+--------+ + + + [...] Interrogation | | | | | [place], | (Primary Dx); | | | | | [place] [address] | Presence of | | | | | [phone] | permanent cardiac | | | | [...] Interrogation | | | | | [place], | (Primary Dx); | | | | | [place] [address] | Presence of | | | | | [phone] | permanent cardiac | | | | [...] | | | | | | [place] [address] | | | | | | [phone] | | | | | | | | +--------+ + + + + documented as of this encounter Visit Diagnoses Not on filedocumented in this encounter"
--- OUTSIDE RECORDS SUMMARY | ~2019-11-16 | XMS | Encounter Summary ---
Demographics + + + | Address | [address] | | | [place] [address] | + + + | Home Phone [...] Providers + +------+ + | Care Music Typographer Name | Role | Phone | + [...] + | 11/02/ | Telephone | [facility] | Daljit Singletary, | Other | | 2015 | | CARDIOLOGY [address] | MD [address] | | | | | [place], | [place], | | | | | [place] [address] | [place] [address] | | | | | [phone] | [phone] | | | | | | | [...] 2018 | Monitor | | [address] | Interrogation | | | | | [place], | (Primary Dx); | | | | | [place] [address] | Presence of | | | | | [phone] | permanent cardiac | | | | [...] 2018 | Monitor | | [address] | Interrogation | | | | | [place], | (Primary Dx); | | | | | [place] [address] | Presence of | | | | | [phone] | permanent cardiac | | | | [...] | | | | | | [place] [address] | | | | | | [phone] | | | | | | | | +--------+ + + + + documented as of this encounter Visit Diagnoses Not on filedocumented in this encounter"
--- OUTSIDE RECORDS SUMMARY | ~2019-11-16 | XMS | Encounter Summary ---
Demographics + + + | Address | [address] | | | [place] [address] | + + + | Home Phone [...] + +------+ + | Care Trust Manager Assistant Name | Role | Phone | [...] | | | | aortic | Janeen, BREAD AND PASTRY BAKER | Onset, | | | | | aneurysm | [address] | [place] [address] | | | | | (HCC) | [place] | Phone: | | | | | Abdominal | [place], | [phone] | | | | | aortic | [place] | Fax: | | | | | aneurysm | [address] | [phone] | | | | | (AAA) | Phone: | | | | | | without | [phone] | | | | | | rupture | Fax: | | | | | | (HCC) | [phone] | | | | | | Procedures [...] | | unspecified | MD Martell | [address] [place] [address] | | | | | type ER | [address] | [place] [address] | | | | | FUP | [place] | Onset, | | | | | Procedures | [place], [place] | [place] [address] | | | | | FUP - SUW & | [address] | Phone: | | | | | MISHA PT, LAST | Phone: | [phone] | | | | | SEEN | [phone] | Fax: | | | | | 08-24-18 | Fax: | [phone] | | | | | | [phone] | | +--------+ + + + + + Encounter Details +--------+---------+ + + + | Date | Type | Department | Care Team | Description | +--------+---------+ + + + | 01/11/ | Office | [facility] | Silvia, | Coronary artery | | 2019 | Visit | CARDIOLOGY [address] | PARISA Vernon [address] | disease involving | | | | [place], | [place], | [place] | | | | [place] [address] | [place] [address] | artery of [place] | | | | [phone] | [phone] | heart without angina | | | [...] encounter Patient Instructions Patient Instructions Christine Rodriguez, Retail District Manager - 01/11/2019 12:45 PM PST 1. [...] Check-in time: 1. Check in at the [facility]. 2. Do not [...] procedure. 6. Make sure you have a tow driver to take you home. Your tow driver will also need to sign you [...] hospital line at and ask for nursing package center supervisor t o let them know you are cancelling . Blood test: Non-fasting Date Due: same day as CTA Where to go for labs: [facility]- [address] [facility] CTA of Chest and Abdomen: Date: Check-In [...] of non-critical coronary artery d isease involving [place] coronary artery of [place] heart without angina pectoris, essential h [...] Preventative health care Coronary artery disease involving [place] coronary artery of [place] heart without angina pectoris Cannabis abuse, [...] 3RD DOSE, CALL 911 100 tablet 3 [place]-3 Fatty Acids (SALMON OIL-1000 PO) CAPS, one capsule by mouth daily twice daily ondansetron (ZOFRAN ODT) 4 mg disintegrating tablet Take 4 mg by mouth. ONE TOUCH DELICA LANCETS [facility] [...] was found Confirmed by ANGELA MARADIAGA MD ([id number]) on 01/03/2019 8:10:39 PM LAB RESULTS reviewed [...] I reviewed reports from [facility]: Xr Chest Ap Portable Result Date: [...] ASSESSMENT: 1. Non-critical Coronary artery disease involving [place] coronary artery of [place] heart wi out angina pectoris: A. Normal [...] Symptoms with moderate exertion of t he [place] Heart Ass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 Heart failure stage [...] ventricular arrhythmia performed by Dr. Gambino at [facility] on 01/30/2013. Patient had spontaneous [...] go back in 3 days t o [place] for an attempt of ablation under [...] he has any further problems Christine Clemente Retail District Manager am acting as a scribe on behalf of, and in the pres ence of PARISA Lomas. - Reji Newman 01/11/2019 13:46 IJaneen ARNP, personally performed the services described in this documentati on, as scribed in my presence and it is both accurate and complete. -PARISA Lomas 01/11/2019 Portions of this chart may have been created with [employer] voice recognition software. Occasi onal wrong-word or [...] Interrogation | | | | | [place], | (Primary Dx); | | | | | [place] [address] | Presence of | | | | | [phone] | permanent cardiac | | | | [...] 2018 | Monitor | | [address] [place] | Interrogation | | | | | [place], | (Primary Dx); | | | | | [place] [address] | Presence of | | | | | [phone] | permanent cardiac | | | | [...] W | | | | | | [place], | | | | | | [place] [address] | | | | | | [phone] | | | | | | | [...] + + | Coronary artery disease involving [place] coronary artery of [place] heart without | | angina pectoris - [...]
--- OUTSIDE RECORDS SUMMARY | ~2019-11-16 | XMS | Encounter Summary ---
Demographics + + + | Address | [address] | | | [place] [address] | + + + | Home Phone [...] +------+ + | Care Quality Assurance Monitor Body Name | Role | Phone | + [...] | Telephone | [facility] [place] | [place], | Other (not feeling | | 2013 | | [place] [address] | PARISA Vernon [address] | kendall) | | | | [place], | [place], | | | | | [place] [address] | [place] [address] | | | | | [phone] | | | | | | | [...] | Monitor | | MD [address] [place] | Interrogation | | | | | [place], | (Primary Dx); | | | | | [place] [address] | Presence of | | | | | [phone] | permanent cardiac | | | | [...] | Monitor | | MD [address] [place] | Interrogation | | | | | [place], | (Primary Dx); | | | | | [place] [address] | Presence of | | | | | [phone] | permanent cardiac | | | | [...] [place], | | | | | | [place] [address] | | | | | | [phone] | | | | | | | | +--------+ + + + + documented as of this encounter Visit Diagnoses Not on filedocumented in this encounter"
--- OUTSIDE RECORDS SUMMARY | ~2019-11-16 | XMS | Encounter Summary ---
Demographics + + + | Address | [address] | | | [place] [address] | + + + | Home Phone [...] + + | 12/24/ | Surgery | [facility] | Emmanuel Daniel MD | EGD | | 2018 | | MED CTR MP INTRA OP | [address], [place] | | | | | [address] | [address] [place], [place] | | | | | [place], [place] | [address] | | | | | [address] | | | | | | [phone] | | | +--------+---------+ + + + [...] + + + +---------+ + + | [place]-3 Fatty | CAPS, one capsule by | [...] Dx); | | | | | [place] [address] | Presence of | | | | | [phone] | permanent cardiac | | | | [...] Dx); | | | | | [place] [address] | Presence of | | | | | [phone] | permanent cardiac | | | | [...] W | | | | | | [place], | | | | | | [place] [address] | | | | | | [phone] | | | | | | | [...] + + | Performed at: 01 - [facility] [address], | REFERENCE LAB | | [place], [place] [id number] Environmental Planning Engineer: William Andrew MD, Phone: | ARSH CASTANON | | [phone] | | + + + + + + + + | Performing | Address | City/State/Zipcode | Phone Number | | Organization | | | | + + + + + | REFERENCE LAB | [address] | [place] [address] | [phone] | | [facility] | [address] [...] [address] | [place] | [phone] | | [facility] | | [address] | | | - LABORATORY | | [...] + | [facility] | [address] | [place] | [phone] | | [facility] | | [address] | | | - LABORATORY | | [...] | | 1 | | | [facility] | | | | [...] ST. | [address] | [place], [place] | [phone] | | [facility] | | [address] | | | - LABORATORY | | [...] + + | Performed at: 01 - [facility] [address], | REFERENCE LAB | | [place], [place] [id number] Environmental Planning Engineer: William Andrew MD, Phone: | [facility] | | [phone] | | + + + + + + + + | Performing | Address | City/State/Zipcode | Phone Number | | Organization | | | | + + + + + | REFERENCE LAB | [address] | [place] [address] | [phone] | | [facility] | Drive [...] ST. | [address] | [place], [place] | [phone] | | [facility] | | [address] | | | - LABORATORY | | [...] [address] | [place] | [phone] | | [facility] | | [address] | | | - LABORATORY | | [...] [address] | [place] | [phone] | | [facility] | | [address] | | | - LABORATORY | | [...] + | [facility] | [address] | [place], [place] | [phone] | | [facility] | | [address] | | | - LABORATORY | | [...] | [address] | [place] | [phone] | | [facility] | | [address] | | | - LABORATORY | | | | + + + + + EGD (12/24/2017 1:19 PM PST) + + | Specimen | + + | | + + + + -+ | Narrative | Performed At | + + -+ | | [facility] | | GastroenterologyPatient Name: Moe Venegas Date: 12/24/2017 | [facility] | | 1:19 PMMRN: [id number] #: [id number] of : | | | 9Admit Type: AmbulatoryAge: 57Room: [facility] 01Gender: MaleNote | | | Status: FinalizedAttending MD: Emmanuel Daniel , [facility]cedure: | | | Upper GI endoscopyIndications: Diarrhea, Weight | | | lossProviders: Emmanuel Daniel MD, Maria Isabel Morris RN, | | | Kim Hicks, Sql Data Analyst, [place] | | | Sapna Barakat MD (Anesthesia [...] the anesthesiologist and | | | the animal husbandry technician in the endoscopy suite. Mental Status [...] PMScope Out: 1:31:13 PM | | | [facility], [address] [facility] | | | [place] [address] | | | - Discharge patient to [...] |Scope Out: 1:31:13 PM | | | [facility], [address] [facility], [place], [place] | | | [address] | | + + -+ + +---------+ [...] 12/24/2017 | [facility] | | 1:17 PMMRN: [id number] #: [id number] of : | | | 9Admit Type: AmbulatoryAge: 57Room: [facility] 01Gender: MaleNote | | | Status: FinalizedAttending MD: Emmanuel Daniel , [facility]OSArocedure: | | | ColonoscopyIndications: Clinically significant diarrhea of | | | unexplained originProviders: Emmanuel Daniel MD, Maria Isabel | | | Arturo, [place], Kim Hicks, Sql Data Analyst, | | | Jarett Barakat MD [...] | | | the anesthesiologist and the animal husbandry technician in the endoscopy suite. | | [...] In: 1:32:55 PMScope Out: 1:48:57 PM [facility] | | | [address] [address] | | | [phone] | | | - Await pathology results. [...] |Scope Out: 1:48:57 PM | | | [facility], [address] [place] [address] | | | [address] | | + + -+ + +---------+ [...] developed and its performance characteristics determined by [facility] | | | [employer]. It has not been cleared or approved by the U.S. Food | | | and Drug Administration. The FDA has determined that such clearance | | | or approval is not necessary. This test is used for clinical | | | purposes. It should not be regarded as investigational or for | | | research. [facility] is certified under the Clinical | | | Laboratory Improvement Amendments of 1988 (CLIA) as qualified to | | | perform high complexity clinical laboratory testing. This assay | | | has not been validated for specimens that have been decalcified. | | | PERFORMING LABORATORY: Tissue processing and slide preparation were | | | performed by [facility], [address], [facility] | | | [place] [address] (Insurance Agent: Evan Frausto M.D. CLIA#: | | | [id number]). Professional interpretation was performed by [facility] | | | [employer], [address], [place] [address] | | | (Insurance Agent: Evan Frausto M.D.; CLIA#: [id number]). | | | Diagnostician: Rafael Bales MD [...]
--- OUTSIDE RECORDS SUMMARY | ~2019-11-16 | XMS | Encounter Summary ---
Demographics + + + | Address | [address] | | | [place] [address] | + + + | Home Phone [...] Providers + +------+ + | Care Test Deskman Name | Role | Phone | + +------+ + | Kirk French MD | PCP | | + +------+ + Encounter Details +--------+ + + + + | Date | Type | Department | Care Team | Description | +--------+ + + + + | 01/07/ | Hospital | [facility] | Conversion | | | 2017 | Encounter | [facility] | Transaction, | | | | | ULTRASOUND [address] | Provider Unknown | | | | | [address] [facility] [address] | [phone] | | | | | [place] | | | | | | [address] | Kirk French | | | | | [phone] | MD Eva Guidry | | | | | | [address] [place], | | | | | | [place] [address] | | | | | | [phone] | | | | | | | [...] + + + +---------+ + + | [place]-3 Fatty | CAPS, one capsule by | [...] Dx); | | | | | [place] [address] | Presence of | | | | | [phone] | permanent cardiac | | | | [...] Dx); | | | | | [place] [address] | Presence of | | | | | [phone] | permanent cardiac | | | | [...] | | | | | | [place], | | | | | | [place] [address] | | | | | | [phone] | | | | | | | | +--------+ + + + + documented as of this encounter Visit Diagnoses Not on filedocumented in this encounter"
--- OUTSIDE RECORDS SUMMARY | ~2019-11-16 | XMS | Encounter Summary ---
Demographics + + + | Address | [address] | | | [place] [address] | + + + | Home Phone [...] Team Providers + +------+ + | Care Preform Machine Operator Name | Role | Phone | + +------+ + | Kirk French MD | PCP | | + +------+ + Encounter Details +--------+ + + + + | Date | Type | Department | Care Team | Description | +--------+ + + + + | 08/10/ | Orders Only | [facility] | [place], | Mixed hyperlipidemia | | 2016 | | MED CTR LABORATORY | PARISA Vernon [address] | (Primary Dx) | | | | [address] [place] | [place], | | | | | [place] | [place] [address] | | | | | [address] | [phone] | | | | | [phone] | | | +--------+ + + + [...] 2018 | Monitor | | MD [address] [place] | Interrogation | | | | | [place], | (Primary Dx); | | | | | [place] [address] | Presence of | | | | | [phone] | permanent cardiac | | | | [...] | Monitor | | MD [address] [place] | Interrogation | | | | | [place], | (Primary Dx); | | | | | [place] [address] | Presence of | | | | | [phone] | permanent cardiac | | | | [...] | 2020 | Visit | | Janeen, ELECTRONIC SCALE SUBASSEMBLER [address] | | | | | | [place], | | | | | | [place] [address] | | | | | | [phone] | | | | | | | [...]
--- OUTSIDE RECORDS SUMMARY | ~2019-11-16 | XMS | Encounter Summary ---
Demographics + + + | Address | [address] | | | [place] [address] | + + + | Home Phone [...] Team Providers + +------+ + | Care Sensitized Paper Tester Name | Role | Phone | + +------+ + PCP | Unavailable | + +------+ + Encounter Details +--------+ + + + + | Date | Type | Department | Care Team | Description | +--------+ + + + + | 08/26/ | Hospital | [facility] | | | | 2009 | Encounter | MED CTR LABORATORY | | | | | | [address] | | | | | | [place] | | | | | | [address] | | | | | | [phone] | | | +--------+ + + + [...] Dx); | | | | | [place] [address] | Presence of | | | | | [phone] | permanent cardiac | | | | [...] Dx); | | | | | [place] [address] | Presence of | | | | | [phone] | permanent cardiac | | | | [...] W | | | | | | [place], | | | | | | [place] [address] | | | | | | [phone] | | | | | | | | +--------+ + + + + documented as of this encounter Visit Diagnoses Not on filedocumented in this encounter"
--- OUTSIDE RECORDS SUMMARY | ~2019-11-16 | XMS | Encounter Summary ---
Demographics + + + | Address | [address] | | | [place] [address] | + + + | Home Phone [...] Team Providers + +------+ + | Care Resp Therapist Name | Role | Phone | [...] | | CARDIOLOGY [address] | [address] | | | | | [place], | [place], | | | | | [place] [address] | [place] [address] | | | | | [phone] | | | | | | | [...] | Monitor | | MD [address] | Interrogation | | | | | [place], | (Primary Dx); | | | | | [place] [address] | Presence of | | | | | [phone] | permanent cardiac | | | | [...] | Monitor | | MD [address] | Interrogation | | | | | [place], | (Primary Dx); | | | | | [place] [address] | Presence of | | | | | [phone] | permanent cardiac | | | | [...] | | | | | | [place] [address] | | | | | | [phone] | | | | | | | | +--------+ + + + + documented as of this encounter Visit Diagnoses Not on filedocumented in this encounter"
--- OUTSIDE RECORDS SUMMARY | ~2019-11-16 | XMS | Encounter Summary ---
Demographics + + + | Address | [address] | | | [place] [address] | + + + | Home Phone [...] Team Providers + +------+ + | Care Pleasure Craft Sailor Name | Role | Phone | + [...] Provider Unknown | | | | | [place], [place] | [phone] | | | | | [address] | | | | | | [phone] | | | +--------+ + + + [...] + + + +---------+ + + | [place]-3 Fatty | CAPS, one capsule by [...] | | | | | | | #[id number], exp 07/2016 | | | | | [...] Interrogation | | | | | [facility], | (Primary Dx); | | | | | [place] [address] | Presence of | | | | | [phone] | permanent cardiac | | | | [...] | 2018 | Monitor | | [address] | Interrogation | | | | | [place], | (Primary Dx); | | | | | [place] [address] | Presence of | | | | | [phone] | permanent cardiac | | | | [...] W | | | | | | [place], | | | | | | [place] [address] | | | | | | [phone] | | | | | | | [...]
--- OUTSIDE RECORDS SUMMARY | ~2019-11-16 | XMS | Encounter Summary ---
Demographics + + + | Address | [address] | | | [place] [address] | + + + | Home Phone [...] + + | 07/12/ | Office | [facility] | Michael Amanda, | Preventative health | | 2013 | Visit | [facility] [place] [facility] [place] | DO [address] | care (Primary Dx); | | | | [address] | [place], [place] | Prostate cancer | | | | [place], [place] | [address] | screening; | | | | [address] | | Hypercholesterolemia | | | | [phone] | | ; Hypertension; | | | [...] clear cause was found. 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 Possible [...] Dx); | | | | | [place] [address] | Presence of | | | | | [phone] | permanent cardiac | | | | [...] Dx); | | | | | [place] [address] | Presence of | | | | | [phone] | permanent cardiac | | | | [...] | | | | [place], | | | | | | [place] [address] | | | | | | [phone] | | | | | | | [...]
--- OUTSIDE RECORDS SUMMARY | ~2019-11-16 | XMS | Encounter Summary ---
Demographics + + + | Address | [address] | | | [place] [address] | + + + | Home Phone [...] + +------+ + | Care Front End Architect Name | Role | Phone | [...] | 07/07/ | Telephone | [facility] | Daljit Singletary, | Appointment | | 2012 | | CARDIOLOGY [address] | MD [address] | | | | | [address], | [place], | | | | | [place] [address] | [place] [address] | | | | | [phone] | [phone] | | | | | | | [...] 2018 | Monitor | | MD [address] | Interrogation | | | | | [place], | (Primary Dx); | | | | | [place] [address] | Presence of | | | | | [phone] | permanent cardiac | | | | [...] | Monitor | | MD [address] | Interrogation | | | | | [place], | (Primary Dx); | | | | | [place] [address] | Presence of | | | | | [phone] | permanent cardiac | | | | [...] W | | | | | | [place], | | | | | | [place] [address] | | | | | | [phone] | | | | | | | | +--------+ + + + + documented as of this encounter Visit Diagnoses Not on filedocumented in this encounter"
--- OUTSIDE RECORDS SUMMARY | ~2019-11-16 | XMS | Encounter Summary ---
Demographics + + + | Address | [address] | | | [place] [address] | + + + | Home Phone [...] Providers + +------+ + | Care Equipment Operator/Laborer/Supervisor Name | Role | Phone | + +------+ + PCP | Unavailable | + +------+ + Encounter Details +--------+ + + + + | Date | Type | Department | Care Team | Description | +--------+ + + + + | 05/02/ | [facility] | [facility] | Jonathan, | | | 2009 | Encounter | MED CTR EMERGENCY | Martell Cr MD [address] | | | | | CENTER [address] | [place] | | | | | [place] | [place] [address] | | | | | [address] | [phone] | | | | | [phone] | | | +--------+ + + + [...] Dx); | | | | | [place] [address] | Presence of | | | | | [phone] | permanent cardiac | | | | [...] Dx); | | | | | [place] [address] | Presence of | | | | | [phone] | permanent cardiac | | | | [...] W | | | | | | [place], | | | | | | [place] [address] | | | | | | [phone] | | | | | | | | +--------+ + + + + documented as of this encounter Visit Diagnoses Not on filedocumented in this encounter"
--- OUTSIDE RECORDS SUMMARY | ~2019-11-16 | XMS | Encounter Summary ---
Demographics + + + | Address | [address] | | | [place] [address] | + + + | Home Phone [...] Providers + +------+ + | Care Branch Mechanic Name | Role | Phone | [...] + | 06/20/ | Telephone | [facility] | Daljit Singletary, | Chest Pain | | 2018 | | CARDIOLOGY [address] | MD [address] [place] | | | | | [place], | [place], | | | | | [place] [address] | [place] [address] | | | | | [phone] | [phone] | | | | | | | [...] Interrogation | | | | | [place], | (Primary Dx); | | | | | [place] [address] | Presence of | | | | | [phone] | permanent cardiac | | | | [...] | Monitor | | MD [address] [place] | Interrogation | | | | | [place], | (Primary Dx); | | | | | [place] [address] | Presence of | | | | | [phone] | permanent cardiac | | | | [...] | | | | | | [place] [address] | | | | | | [phone] | | | | | | | | +--------+ + + + + documented as of this encounter Visit Diagnoses Not on filedocumented in this encounter"
--- OUTSIDE RECORDS SUMMARY | ~2019-11-16 | XMS | Encounter Summary ---
Demographics + + + | Address | [address] | | | [place] [address] | + + + | Home Phone [...] Providers + +------+ + | Care Box Stacker Name | Role | Phone | [...] | disease) (Primary | | | | [place], | [place], | Dx); Other chest | | | | [place] [address] | [place] [address] | pain; Chest pain; | | | | [phone] | [phone] | Coronary artery | | | | [...] Sanchez Date: October 23, 2014 : 1960 Bin Piler: Kailey Pruitt RN Device Safety Aide: [place] Sense (mV) Impedance (?) Capture (V) Capture (ms) A Lead 2.80-4.00 407 1.500 0.09 RV Lead 22.40-31.36 519 2.000 0.09 LV Lead Battery Impedance (?): 658 Battery Voltage (V): 2.79 ID Interval (ms): 155 AR Interval (ms): 240 VA Conduction: Mode Switch Events: 1 % of time: <0.1 -CHEST PAINTING LEADER: <0.1% AP-CHEST PAINTING LEADER: <0.1% -VS: 13.8% AP-VS: 86.1% CHEST PAINTING LEADER: Magnetic Rate: 85 LINDA: 65 LEAH: Current [...] Kailey Pruitt RN 10/23/2014 15:22 ames Janeen, COFFEE PLANTATION WORKER - 10/23/2014 2:22 PM PST PATIENT NAME: [...] needed for Chest pain. 25 tablet 12 [place]-3 Fatty Acids (SALMON OIL-1000 PO) CAPS, [...] attenuation cannot completely be ruled out. [facility] 12/25/13, shows non critical coronary [...] He is i n class I-II of Walker Heart Ass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 There are no [...] dizziness. He is in class I-II of Walker Heart Ass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 There are n [...] this chart may have been created with Digistrive voice recognition software. Occasi onal wrong-word or [...] 2019 | Monitor | | [address] [place] | Interrogation | | | | | [place], | (Primary Dx); | | | | | [place] [address] | Presence of | | | | | [phone] | permanent cardiac | | | | [...] Dx); | | | | | [place] [address] | Presence of | | | | | [phone] | permanent cardiac | | | | [...] W | | | | | | [place], | | | | | | [place] [address] | | | | | | [phone] | | | | | | | [...] 23, 2014 : | | | 1960 Bin Piler: Kailey Pruitt RN Device Safety Aide: | | | Medtronic Sense (mV) Impedance (?) Capture (V) Capture (ms) A | | | Lead 2.80-4.00 407 1.500 0.09 RV Lead 22.40-31.36 519 2.000 0.09 | | | LV Lead Battery Impedance (?): 658 Battery Voltage (V): 2.79 | | | ID Interval (ms): 155 AR Interval (ms): 240 VA Conduction: Mode | | | Switch Events: 1 % of time: <0.1 -CHEST PAINTING LEADER: <0.1% AP-CHEST PAINTING LEADER: <0.1% -VS: | | | 13.8% AP-VS: 86.1% CHEST PAINTING LEADER: Magnetic Rate: 85 LINDA: 65 LEAH: Current [...] | | Date: October 23, 2014DOB: 1960 Bin Piler: Jun Saul Safety Aide: | | Medtronic Sense (mV) Impedance (?) Capture (V) Capture (ms) A Lead 2.80-4.00 407 1.500 | | 0.09 RV Lead 22.40-31.36 519 2.000 0.09 LV Lead Battery Impedance (?): 658 Battery | | Voltage (V): 2.79 ID Interval (ms): 155 AR Interval (ms): 240 VA Conduction: Mode | | Switch Events: 1 % of time: <0.1 -CHEST PAINTING LEADER: <0.1% AP-CHEST PAINTING LEADER: <0.1% -VS: 13.8% AP-VS: 86.1% CHEST PAINTING LEADER: | | Magnetic Rate: 85 LINDA: 65 [...] of unspecified type | | of vessel, lone pine or graft | + + | Other chest pain | + + | Chest pain Chest pain, unspecified | + + | Coronary artery disease Coronary atherosclerosis of unspecified type of vessel, | | lone pine or graft | + + | Pacemaker [...]
--- OUTSIDE RECORDS SUMMARY | ~2019-11-16 | XMS | Encounter Summary ---
Demographics + + + | Address | [address] | | | [place] [address] | + + + | Home Phone [...] [facility] | Daljit Singletary, | | | 2018 | Encounter | MED CTR NUCLEAR | MD [address] | | | | | MEDICINE [address] | [address] [place], | | | | | [place] | [place] [address] | | | | | [place] [address] | [phone] | | | | | [phone] | | | +--------+ + + + [...] + + + +---------+ + + | [place]-3 Fatty | CAPS, one capsule by | [...] Dx); | | | | | [place] [address] | Presence of | | | | | [phone] | permanent cardiac | | | | [...] | 2018 | Monitor | | [address] [place] | Interrogation | | | | | [place], | (Primary Dx); | | | | | [place] [address] | Presence of | | | | | [phone] | permanent cardiac | | | | [...] | | | | | | [place], | | | | | | [place] [address] | | | | | | [phone] | | | | | | | [...] | | | | Starting [facility] 07/21/18 at 1224, For | | | | | | | 1 dose, Nuclear Medicine | | | | | | + +--------+ + +------+------+ +---+---+ | | | +---+---+ documented in this encounter"
--- OUTSIDE RECORDS SUMMARY | ~2019-11-16 | XMS | Encounter Summary ---
Demographics + + + | Address | [address] | | | [place] [address] | + + + | Home Phone [...] [facility] | | [...] +------+ + | Care Steam And Gas Turbines Assembler Name | Role | Phone | [...] + + | 11/03/ | Refill | [facility] | Kirk French | Medication Refill | | 2019 | | [facility] | MD Bre[address] | | | | | PR[facility] [address] | [address] | | | | | [address] | [place] [address] | | | | | [place], [place] | [phone] | | | | | [address] | | | | | | [phone] | | | +--------+--------+ + + + [...] 2019 | Monitor | | [place] [address] [facility] | Interrogation | | | | | [place], | (Primary Dx); | | | | | [place] [address] | Presence of | | | | | [phone] | permanent cardiac | | | | [...] Dx); | | | | | [place] [address] | Presence of | | | | | [phone] | permanent cardiac | | | | [...] W | | | | | | [place], | | | | | | [place] [address] | | | | | | [phone] | | | | | | | | +--------+ + + + + documented as of this encounter Visit Diagnoses Not on filedocumented in this encounter"
--- OUTSIDE RECORDS SUMMARY | ~2019-11-16 | XMS | Encounter Summary ---
Demographics + + + | Address | [address] | | | [place] [address] | + + + | Home Phone [...] Providers + +------+ + | Care Sales Closer Name | Role | Phone | + +------+ + | Kirk French MD | PCP | | + +------+ + Encounter Details +--------+ + + + + | Date | Type | Department | Care Team | Description | +--------+ + + + + | 10/25/ | Hospital | [facility] | Kirk French | Aneurysm (HCC) | | 2017 | Encounter | MED CTR ULTRASOUND | D, MD [address] | | | | | [address] [place] | [address] | | | | | [place], [place] | [place] [address] | | | | | [address] | [phone] | | | | | [phone] | | | | | | | [...] | Monitor | | MD [address] [place] | Interrogation | | | | | [place], | (Primary Dx); | | | | | [place] [address] | Presence of | | | | | [phone] | permanent cardiac | | | | [...] Interrogation | | | | | [place], | (Primary Dx); | | | | | [place] [address] | Presence of | | | | | [phone] | permanent cardiac | | | | [...] W | | | | | | [place], | | | | | | [place] [address] | | | | | | [phone] | | | | | | | | +--------+ + + + + documented as of this encounter Visit Diagnoses + + | Diagnosis | + + | Aneurysm (HCC) Aneurysm of unspecified site | + + documented in this encounter"
--- OUTSIDE RECORDS SUMMARY | ~2019-11-16 | XMS | Encounter Summary ---
Demographics + + + | Address | [address] | | | [place] [address] | + + + | Home Phone [...] + | 12/25/ | Hospital | [facility] | Daljit Singletary, | | | 2013 | Encounter | MED CTR XRAY [address] | [address] | | | | | [address] [place] | [address] [place], | | | | | [place] [address] | [place] [address] | | | | | [phone] | [phone] | | | | | | | [...] Dx); | | | | | [place] [address] | Presence of | | | | | [phone] | permanent cardiac | | | | [...] Dx); | | | | | [place] [address] | Presence of | | | | | [phone] | permanent cardiac | | | | [...] W | | | | | | [place], | | | | | | [place] [address] | | | | | | [phone] | | | | | | | [...] Performed At | + + + | [facility] | [place] | | Department [address] [facility] [place] | [facility] | | [ rep ct [address]] [ rep ct [facility] | | [facility]] Signed | - IMAGING | | | | | Patient Name: MOE GAY W | | | Physician: MIGUELINA : 1960 Age: 53 Sex: M Unit | | | #: [id number] Exam Date: 12/25/13 Location: | | | SDS SDS-D Report #: [id number] Page: | | | %(RAD)RES..mtdd.print.filter("pg") of %(RAD) | | | RES..mtdd.print.filter("tpg") | | | | | | Accession Number: [id number] | | | LEFT HEART CATHETERIZATION, 12/25/2013 [...] the patient was taken to the cardiac catheterization laboratory technician. She | | | was prepared and draped in the usual fashion. Under sterile | | | technique and local anesthesia, percutaneous access was obtained | | | using #5 English sheath in the right radial artery. Right heart cath | | | was not performed on this patient. Left ventriculography was | | | performed using #5 multipurpose diagnostic catheter. The selective | | | coronary angiography was then performed in several sagittal and | | | oblique projections using #5 multipurpose and #5 English JL 3.5 | | | diagnostic catheters. [...] Transcribed | | | Date/Time: 12/25/2013 11:52 Utility Technician: | | | <<Signature on File>> | | | Daljit | | | MD [facility] ALEKSANDER12/25/13 1343 <Electronically signed by | | | Daljit Singletary MD, [facility], FACP, ADELINE, YEN> Daljit | | | MD [facility] ADELINE 12/25/13 1035 Utility Technician: Jessica | | | [email or web address]/03/14 1152 | | + + + + + + + + | Performing | Address | City/State/Zipcode | Phone Number | | Organization | | | | + + + + + | [facility] | [address] | [place] | [phone] | | [facility] | | [address] | | | - IMAGING | | | | + + + + + documented in this encounter Visit Diagnoses Not on filedocumented in this encounter
--- OUTSIDE RECORDS SUMMARY | ~2019-11-16 | XMS | Encounter Summary ---
Demographics + + + | Address | [address] | | | [place] [address] | + + + | Home Phone [...] Providers + +------+ + | Care Budget Analyst Name | Role | Phone | + +------+ + | Kirk French MD | PCP | | + +------+ + Encounter Details +--------+---------+ + + + | Date | Type | Department | Care Team | Description | +--------+---------+ + + + | 01/25/ | Surgery | [facility] | Daljit Singletary, | CV LHC | | 2019 | | MED CTR CV INTRA OP | MD [address] | | | | | [address] | [address] [place], | | | | | [place] | [place] [address] | | | | | [address] | [phone] | | | | | [phone] | | | +--------+---------+ + + + [...] by your healthcare provider Date Last Reviewed: 09/22/201619997343-9163 [employer]. [address] [place] [address]. All righ ts reserved. This information is [...] + + +---------+ + + | [place]-3 Fatty | CAPS, one capsule by | [...] | Monitor | | MD [address] | Interrogation | | | | | [place], | (Primary Dx); | | | | | [place] [address] | Presence of | | | | | [phone] | permanent cardiac | | | | [...] | Monitor | | MD [address] | Interrogation | | | | | [place], | (Primary Dx); | | | | | [place] [address] | Presence of | | | | | [phone] | permanent cardiac | | | | [...] W | | | | | | [address] [place], | | | | | | [place] [address] | | | | | | [phone] | | | | | | | [...] (1960) MEDICAL RECORD NUMBER: | | | [id number] OF PROCEDURE: 01/25/2019 TRUCK MANAGER: Daljit | | | MD [facility] PROCEDURES [...] Sanchez, (1960) | | OF PROCEDURE: 01/25/2019PRIMARY CRUSHER SETTER: Daljit Singletary MD PROCEDURES | | PERFORMED:Coronary [...]
--- OUTSIDE RECORDS SUMMARY | ~2019-11-16 | XMS | Encounter Summary ---
Demographics + + + | Address | [address] | | | [place] [address] | + + + | Home Phone [...] Providers + +------+ + | Care Qa Test Analyst Name | Role | Phone [...] 2012 | | Conversion Location | [address] | | | | | [phone] | [address] [place], | | | | | | [place] [address] | | | | | | [phone] | | | | | | | [...] | MD [address] [facility] | Interrogation | | | | | [place], | (Primary Dx); | | | | | [place] [address] | Presence of | | | | | [phone] | permanent cardiac | | | | [...] | 2018 | Monitor | | [address] | Interrogation | | | | | [place], | (Primary Dx); | | | | | [place] [address] | Presence of | | | | | [phone] | permanent cardiac | | | | [...] W | | | | | | [place], | | | | | | [place] [address] | | | | | | [phone] | | | | | | | | +--------+ + + + + documented as of this encounter Visit Diagnoses Not on filedocumented in this encounter"
--- OUTSIDE RECORDS SUMMARY | ~2019-11-16 | XMS | Encounter Summary ---
Demographics + + + | Address | [address] | | | [place] [address] | + + + | Home Phone [...] Providers + +------+ + | Care Installation Superintendent Name | Role | Phone | + +------+ + PCP | Unavailable | + +------+ + Encounter Details +--------+ + + + + | Date | Type | Department | Care Team | Description | +--------+ + + + + | 10/13/ | Hospital | [facility] | | | | 2007 | Encounter | MED CTR EMERGENCY | | | | | | [place] [address] | | | | | | [place] | | | | | | [address] | | | | | | [phone] | | | +--------+ + + + [...] Dx); | | | | | [place] [address] | Presence of | | | | | [phone] | permanent cardiac | | | | [...] Dx); | | | | | [place] [address] | Presence of | | | | | [phone] | permanent cardiac | | | | [...] | | | | | | [place] [address] | | | | | | [phone] | | | | | | | | +--------+ + + + + documented as of this encounter Visit Diagnoses Not on filedocumented in this encounter"
--- OUTSIDE RECORDS SUMMARY | ~2019-11-16 | XMS | Encounter Summary ---
Demographics + + + | Address | [address] | | | [place] [address] | + + + | Home Phone [...] + +------+ + | Care Bank Vault Clerk Name | Role | Phone | [...] [address] | | | | | | [place], [place] | (Fax) | | | | | [address] | | | | | | [phone] | | | +--------+ + + + [...] 2019 | Monitor | | [address] [place] | Interrogation | | | | | [place], | (Primary Dx); | | | | | [place] [address] | Presence of | | | | | [phone] | permanent cardiac | | | | [...] Dx); | | | | | [place] [address] | Presence of | | | | | [phone] | permanent cardiac | | | | [...] W | | | | | | [place], | | | | | | [place] [address] | | | | | | [phone] | | | | | | | | +--------+ + + + + documented as of this encounter Visit Diagnoses Not on filedocumented in this encounter"
--- OUTSIDE RECORDS SUMMARY | ~2019-11-16 | XMS | Encounter Summary ---
Demographics + + + | Address | [address] | | | [place] [address] | + + + | Home Phone [...] Team Providers + +------+ + | Care Geospatial Technician Name | Role | Phone | + +------+ + | Kirk French MD | PCP | | + +------+ + Encounter Details +--------+ + + + + | Date | Type | Department | Care Team | Description | +--------+ + + + + | 10/25/ | Hospital | [facility] | Kirk French | Aneurysm (HCC) | | 2017 | Encounter | MED CTR ULTRASOUND | D, MD [address] | | | | | [address] [place] | [address] | | | | | [place], [place] | [place] [address] | | | | | [address] | [phone] | | | | | [phone] | | | | | | | [...] | Monitor | | MD [address] [place] | Interrogation | | | | | [place], | (Primary Dx); | | | | | [place] [address] | Presence of | | | | | [phone] | permanent cardiac | | | | [...] Interrogation | | | | | [place], | (Primary Dx); | | | | | [place] [address] | Presence of | | | | | [phone] | permanent cardiac | | | | [...] | | | | | | [place] [address] | | | | | | [phone] | | | | | | | | +--------+ + + + + documented as of this encounter Visit Diagnoses + + | Diagnosis | + + | Aneurysm (HCC) Aneurysm of unspecified site | + + documented in this encounter"
--- OUTSIDE RECORDS SUMMARY | ~2019-11-16 | XMS | Encounter Summary ---
Demographics + + + | Address | [address] | | | [place] [address] | + + + | Home Phone [...] Providers + +------+ + | Care Accreditation Coordinator Name | Role | Phone | [...] 11/02/ | Telephone | [facility] | Daljit Singletary, | Other | | 2015 | | CARDIOLOGY [address] | MD [address] | | | | | [place], | [place], | | | | | [place] [address] | [place] [address] | | | | | [phone] | [phone] | | | | | | | [...] 2018 | Monitor | | [address] | Interrogation | | | | | [place], | (Primary Dx); | | | | | [place] [address] | Presence of | | | | | [phone] | permanent cardiac | | | | [...] 2018 | Monitor | | [address] | Interrogation | | | | | [place], | (Primary Dx); | | | | | [place] [address] | Presence of | | | | | [phone] | permanent cardiac | | | | [...] | | | | | | [place] [address] | | | | | | [phone] | | | | | | | | +--------+ + + + + documented as of this encounter Visit Diagnoses Not on filedocumented in this encounter"
--- OUTSIDE RECORDS SUMMARY | ~2019-11-16 | XMS | Encounter Summary ---
Demographics + + + | Address | [address] | | | [place] [address] | + + + | Home Phone [...] Providers + +------+ + | Care Spring Machine Operator Name | Role | Phone [...] unspecified | [address] | | | | | type | [address] | [place], | | | | | Procedures | [place], | [place] | | | | | [place] | [place] [address] | [address] | | | | | Stress Test | Phone: | Phone: | | | | | (Vasodilator | [phone] | [phone] | | | | | ) CHG | Fax: | Fax: | | | | | MYOCARDIAL | [phone] | [phone] | | | | | SPECT | | | | | | | MULTIPLE | | | | | | | STUDIES SD | | | | | | | CV STRS TST | | | | | | | XERS&/OR RX | | | | | | | CONT ECG W/O | | | | | | | I&R SD | | | | | | | [...] | type | [address] | [address] | | | | | Procedures | [place] | [place], | | | | | FUP | [place] | [place] [address] | | | | | | [address] | Phone: | | | | | | Phone: | [phone] | | | | | | [phone] | Fax: | | | | | | Fax: | [phone] | | | | | | [phone] | | +--------+ + + + + + Encounter Details +--------+---------+ + + + | Date | Type | Department | Care Team | Description | +--------+---------+ + + + | 06/27/ | Office | [facility] | Sydni Singletary, | Pacemaker | | 2017 | Visit | CARDIOLOGY [address] | [address] [facility] | reprogramming/check | | | | [address] [place], | [place], | [place]LETE | | | | [place] [address] | [place] [address] | (Primary Dx); Chest | | | | [phone] | [phone] | pain, unspecified | | | | [...] of non-critical coronary artery d isease involving [place] coronary artery of [place] heart without angina pectoris, essential h ypertension, [...] that time, patient has been seen at [place] emergency department on 018 for chest pain [...] Preventative health care Coronary artery disease involving [place] coronary artery of [place] heart without angina pectoris Cannabis abuse, daily [...] by mouth every evening 90 tablet 0 [facility] (OSTEO BI-FLEX/5-LOXIN ADVANCED PO) Take [...] 3RD DOSE, CALL 911 100 tablet 3 [place]-3 Fatty Acids (SALMON OIL-1000 PO) CAPS, [...] to go back in 3 days to [place] for an attempt of ablation under general [...] PVCs. 2. Non-critical Coronary artery disease involving [place] coronary artery of [place] heart [facility] angina pectoris: A. Normal exercise sestamibi stress test on 05/25/09. LVEF by [facility] ed SPECT was 53%. B. [...] completely be ruled out . D. [facility] 12/25/13, shows non [...] He is in a class I of [place] [facility] [employer] functiona l class. There is [...] reviewed and edited this note. Allyson Curtis, Gas Regulator Repairer 06/27/2018 I, Sydni Singletary MD, personally performed the services described in this documentation, as scribed in my presence and it is both accurate and complete. Allyson Curtis, Med Ass t 06/27/2018 14:15 Electronically signed by: Sydni Singletary MD [facility] 06/27/2018 Portions of this chart may have been created with [employer] voice recognition software. Occasi onal wrong-word or [...] 2019 | Monitor | | [address] | Interrogation | | | | | [place], | (Primary Dx); | | | | | [place] [address] | Presence of | | | | | [phone] | permanent cardiac | | | | [...] Dx); | | | | | [place] [address] | Presence of | | | | | [phone] | permanent cardiac | | | | [...] W | | | | | | [address], | | | | | | [place] [address] | | | | | | [phone] | | | | | | | [...] | | + +---------+ + + | CHRISTOPHIL MUSE | | | | + +---------+ [...] MD | | | | | | ([id number]) on 06/27/2018 | | | | | [...]
--- OUTSIDE RECORDS SUMMARY | ~2019-11-16 | XMS | Encounter Summary ---
Demographics + + + | Address | [address] | | | [place] [address] | + + + | Home Phone [...] Providers + +------+ + | Care Rubber Belt Splicer Name | Role | Phone | + [...] Refill | | 2011 | | MEDICINE CALLERY | DO [address] | | | | | [address] | [place] | | | | | [place] | [address] | | | | | [address] | | | | | | [phone] | | | +--------+--------+ + + + [...] Monitor | | MD [address] [place] | Interrogation | | | | | [place], | (Primary Dx); | | | | | [place] [address] | Presence of | | | | | [phone] | permanent cardiac | | | | [...] Interrogation | | | | | [place], | (Primary Dx); | | | | | [place] [address] | Presence of | | | | | [phone] | permanent cardiac | | | | [...] | | | | | | [place], | | | | | | [place] [address] | | | | | | [phone] | | | | | | | | +--------+ + + + + documented as of this encounter Visit Diagnoses + + | Diagnosis | + + | Hypoglycemia - Primary Hypoglycemia, unspecified | + + documented in this encounter"
--- OUTSIDE RECORDS SUMMARY | ~2019-11-16 | XMS | Encounter Summary ---
Demographics + + + | Address | [address] | | | [place] [address] | + + + | Home Phone [...] [address] | | | | | [place], | [place], | | | | | [place] [address] | [place] [address] | | | | | [phone] | [phone] | | | | | | | [...] | Monitor | | MD [address] [place] | Interrogation | | | | | [place], | (Primary Dx); | | | | | [place] [address] | Presence of | | | | | [phone] | permanent cardiac | | | | [...] | Monitor | | MD [address] | Interrogation | | | | | [place], | (Primary Dx); | | | | | [place] [address] | Presence of | | | | | [phone] | permanent cardiac | | | | | | pacemaker; | | | | | | Sinoatrial node | | | | | | dysfunction (HCC) | | | | | | with symptomatic | | | | | | bradycardia | +--------+ + + + + | 02/10/ | Office | Cardiology | [place], | | | 2020 | Visit | | [address] [place] [address] | | | | | | [place], | | | | | | [place] [address] | | | | | | [phone] | | | | | | | [...]
--- OUTSIDE RECORDS SUMMARY | ~2019-11-16 | XMS | Encounter Summary ---
Demographics + + + | Address | [address] | | | [place] [address] | + + + | Home Phone [...] + +------+ + | Care Director Of Promotions Name | Role | Phone | [...] | | [address] | [place] [address] | | | | | [place] | [phone] | | | | | [address] | | | | | | [phone] | | | +--------+ + + + [...] | | MD [address] [facility] | Interrogation | | | | | [place], | (Primary Dx); | | | | | [place] [address] | Presence of | | | | | [phone] | permanent cardiac | | | | [...] | | MD [address] [facility] | Interrogation | | | | | [place], | (Primary Dx); | | | | | [place] [address] | Presence of | | | | | [phone] | permanent cardiac | | | | [...] | | | | | | [place], | | | | | | [place] [address] | | | | | | [phone] | | | | | | | | +--------+ + + + + documented as of this encounter Visit Diagnoses Not on filedocumented in this encounter"
--- OUTSIDE RECORDS SUMMARY | ~2019-11-16 | XMS | Encounter Summary ---
Demographics + + + | Address | [address] [place] [address] | | | [place] [address] | + + + | Home Phone [...] [place] | | | | | [address] | | + + + + + Care Team Providers + +------+ + | Care Torch Heater Name | Role | Phone | [...] | | | | | TRANSTH[facility]ACI | [place], [place] | for Health | | | | | C | [address] | and Healing, | | | | | ECHOCARDIOGR | Phone: | Building [address] | | | | | AM, ADULT | [phone] | [place], [place] | | | | | | Fax: | [address] | | | | | | [phone] | Phone: | | | | | | | [phone] | +--------+--------+ + + + + Encounter Details +--------+ + + + + | Date | Type | Department | Care Team | Description | +--------+ + + + + | 02/03/ | Hospital | Cardiac | | | | 2010 | Encounter | Non-Invasive Testing | | | | | | at [facility] [address] | | | | | | Tremayne Crane Mailcode: | | | | | | CH9A [facility] | | | | | | Health and Healing, | | | | | | [address] | | | | | | [place], [place] | | | | | | [address] | | | | | | [phone] | | | +--------+ + + + [...]
--- OUTSIDE RECORDS SUMMARY | ~2019-11-16 | XMS | Encounter Summary ---
Demographics + + + | Address | [address] | | | [place] [address] | + + + | Home Phone [...] Providers + +------+ + | Care Die Welder Name | Role | Phone | [...] W | Dx) | | | | [place] [address] | [address] [place] | | | | | [place], [place] | [place] [address] | | | | | [address] | [phone] | | | | | [phone] | | | +--------+ + + + [...] + + + +---------+ + + | [place]-3 Fatty | CAPS, one capsule by | [...] 2019 | Monitor | | [address] | Interrogation | | | | | [place], | (Primary Dx); | | | | | [place] [address] | Presence of | | | | | [phone] | permanent cardiac | | | | [...] Interrogation | | | | | [place], | (Primary Dx); | | | | | [place] [address] | Presence of | | | | | [phone] | permanent cardiac | | | | [...] | | | | | | [place] [address] | | | | | | [phone] | | | | | | | [...] W?MRN: | | | | | | [id number] | | | [id number] | | | his | | | [...] | | | ent/60 | | | [id number] | | | -[id number] | | | [...] | | | St. | | | [place] | | | y H. | | [...] | | | St. | | | [place] | | | y H. | | [...] | | | St. | | | [place] | | | y H. | | [...] | | | St. | | | [place] | | | y H. | | [...] | | | St. | | | [place] | | | y | | | [...] | | | ext. | | | [address] | | | or go | | [...] ST. | [address] | [place] | [phone] | | [facility] | | [address] | | | - LABORATORY | | [...] [address] | [place] | [phone] | | [facility] | | [address] | | | - LABORATORY | | [...] | 0.82 | 0.60 - 1.30 | [facility] | | | | | mg/dL | [facility] | | | | | | MEDICAL | | | | | | CENTER - | | | | | | LABORATORY | | + + + + + + | eGFR if not | >60Comment: GLOMERULAR | >=60 | [facility] | | | | FILTRATION | mL/min/1.73m2 | [facility] | | | [facility]O RICAN | RATE,ESTIMATED | | MEDICAL | | | | mL/min/1.55n9Aidk than | | CENTER - | | [...] [address] | [place] | [phone] | | [facility] | | [address] | | | - LABORATORY | | [...] [address] | [place] | [phone] | | [facility] | | [address] | | | - LABORATORY | | | | + + + + + documented in this encounter Visit Diagnoses + + | Diagnosis | + + | Bronchitis - Primary Bronchitis, not specified as acute or chronic | + + documented in this encounter"
--- OUTSIDE RECORDS SUMMARY | ~2019-11-16 | XMS | Encounter Summary ---
Demographics + + + | Address | [address] | | | [place] [address] | + + + | Home Phone [...] Providers + +------+ + | Care Commercial Lines Account Executive Name | Role | Phone [...] | CARDIOLOGY [address] | [address] [place] | (Primary Dx); PVC's | | | | [place], | [place], | (premature | | | | [place] [address] | [place] [address] | ventricular | | | | [phone] | [phone] | contractions) | | | | | [...] note, lorraine painting has appointment to see public health clinical nurse specialist for PVCs ablations consultation on January [...] tablet Take 1,000 mg by mouth Daily. [place]-3 Fatty Acids (SALMON OIL-1000 PO) CAPS, one [...] tablet Take 1,000 mg by mouth Daily. [place]-3 Fatty Acids (SALMON OIL-1000 PO) CAPS, one [...] Interrogation | | | | | [place], | (Primary Dx); | | | | | [place] [address] | Presence of | | | | | [phone] | permanent cardiac | | | | [...] Interrogation | | | | | [place], | (Primary Dx); | | | | | [place] [address] | Presence of | | | | | [phone] | permanent cardiac | | | | [...] | | | | | | [place] [address] | | | | | | [phone] | | | | | | | [...]
--- OUTSIDE RECORDS SUMMARY | ~2019-11-16 | XMS | Encounter Summary ---
Demographics + + + | Address | [address] | | | [place] [address] | + + + | Home Phone [...] Providers + +------+ + | Care Cook Seafood Name | Role | Phone | + [...] Medication Refill | | 2019 | | [facility] | MD [address] | | | | | [facility] | [address] | | | | | [address] | [place] [address] | | | | | [place], [place] | [phone] | | | | | [address] | | | | | | [phone] | | | +--------+--------+ + + + [...] 2019 | Monitor | | [place] [address] [facility] | Interrogation | | | | | [place], | (Primary Dx); | | | | | [place] [address] | Presence of | | | | | [phone] | permanent cardiac | | | | [...] Interrogation | | | | | [place], | (Primary Dx); | | | | | [place] [address] | Presence of | | | | | [phone] | permanent cardiac | | | | [...] | | | | | | [place], | | | | | | [place] [address] | | | | | | [phone] | | | | | | | | +--------+ + + + + documented as of this encounter Visit Diagnoses Not on filedocumented in this encounter"
--- OUTSIDE RECORDS SUMMARY | ~2019-11-16 | XMS | Encounter Summary ---
Demographics + + + | Address | [address] | | | [place] [address] | + + + | Home Phone [...] + +------+ + | Care Pest Control Worker Name | Role | Phone | [...] | (Fax) | | | | | [address] | | | | | | [phone] | | | +--------+ + + + [...] 2019 | Monitor | | [address] [place] | Interrogation | | | | | [place], | (Primary Dx); | | | | | [place] [address] | Presence of | | | | | [phone] | permanent cardiac | | | | [...] Dx); | | | | | [place] [address] | Presence of | | | | | [phone] | permanent cardiac | | | | [...] W | | | | | | [place], | | | | | | [place] [address] | | | | | | [phone] | | | | | | | | +--------+ + + + + documented as of this encounter Visit Diagnoses Not on filedocumented in this encounter"
--- OUTSIDE RECORDS SUMMARY | ~2019-11-16 | XMS | Encounter Summary ---
Demographics + + + | Address | [address] | | | [place] [address] | + + + | Home Phone [...] Providers + +------+ + | Care Clinical Rn Name | Role | Phone | [...] | 01/04/ | Telephone | [facility] | Emmanuel Daniel MD | Other | | 2019 | | GASTROENTEROLOGY | [address], [place] | | | | | [address] [place] | [address] [place], [place] | | | | | [address] [place], [place] | [address] | | | | | [address] | | | | | | [phone] | | | +--------+ + + + [...] Interrogation | | | | | [facility], | (Primary Dx); | | | | | [place] [address] | Presence of | | | | | [phone] | permanent cardiac | | | | [...] 2018 | Monitor | | [address] | Interrogation | | | | | [place], | (Primary Dx); | | | | | [place] [address] | Presence of | | | | | [phone] | permanent cardiac | | | | [...] | | | | | | [place] [address] | | | | | | [phone] | | | | | | | | +--------+ + + + + documented as of this encounter Visit Diagnoses Not on filedocumented in this encounter"
--- OUTSIDE RECORDS SUMMARY | ~2019-11-16 | XMS | Encounter Summary ---
Demographics + + + | Address | [address] | | | [place] [address] | + + + | Home Phone [...] Team Providers + +------+ + | Care Racking Technician Name | Role | Phone | [...] | 01/24/ | Telephone | [facility] | Daljit Singletary, | Other | | 2019 | | CARDIOLOGY [address] | MD [address] [place] | | | | | [place], | [place], | | | | | [place] [address] | [place] [address] | | | | | [phone] | [phone] | | | | | | | [...] Interrogation | | | | | [place], | (Primary Dx); | | | | | [place] [address] | Presence of | | | | | [phone] | permanent cardiac | | | | [...] 2018 | Monitor | | [address] [place] | Interrogation | | | | | [place], | (Primary Dx); | | | | | [place] [address] | Presence of | | | | | [phone] | permanent cardiac | | | | [...] | | | | | | [place] [address] | | | | | | [phone] | | | | | | | | +--------+ + + + + documented as of this encounter Visit Diagnoses Not on filedocumented in this encounter"
--- OUTSIDE RECORDS SUMMARY | ~2019-11-16 | XMS | Encounter Summary ---
Demographics + + + | Address | [address] | | | [place] [address] | + + + | Home Phone [...] Providers + +------+ + | Care Wood Lather Name | Role | Phone | + [...] 2017 | | CARDIOLOGY [address] | TUBER HELPER [address] [place] | | | | | [place], | [place], [place] | | | | | [place] [address] | [address] | | | | | [phone] | | | +--------+--------+ + + + [...] Interrogation | | | | | [facility], | (Primary Dx); | | | | | [place] [address] | Presence of | | | | | [phone] | permanent cardiac | | | | [...] Interrogation | | | | | [place], | (Primary Dx); | | | | | [place] [address] | Presence of | | | | | [phone] | permanent cardiac | | | | [...] | | | | | | [place] [address] | | | | | | [phone] | | | | | | | | +--------+ + + + + documented as of this encounter Visit Diagnoses Not on filedocumented in this encounter"
--- OUTSIDE RECORDS SUMMARY | ~2019-11-16 | XMS | Encounter Summary ---
Demographics + + + | Address | [address] | | | [place] [address] | + + + | Home Phone [...] Providers + +------+ + | Care Brake Drum Lathe Operator Name | Role | Phone [...] + + | 03/07/ | Office | [facility] | [place], | SINUS BRADYCARDIA | | 2013 | Visit | CARDIOLOGY [address] | [address] [address] | (Primary Dx); | | | | [place], | [place], | Syncope; Symptomatic | | | | [place] [address] | [place] [address] | PVCs; Pacemaker - | | | | [phone] | [phone] | Medtronic - [id number] | | | [...] Sanchez Date: March 07, 2014 : 1960 Fitness Specialist: Kailey Pruitt RN Device Computer Typesetter Keyliner:Medtronic Sense (mV) Impedance (?) Capture (V) Capture (ms) A Lead >5.60 402 1.500 0.09 RV Lead >31.36 522 2.00 0.09 LV Lead Battery Impedance (?): 528 Battery Voltage (V): 2.79 NM Interval (ms): 147 AR Interval (ms): 217 VA Conduction: Mode Switch Events: 0 % of time: 0 -DO ALL OPERATOR: <0.1% AP-DO ALL OPERATOR: 0.1% -VS: 23.8% AP-VS: 76.1% DO ALL OPERATOR: Magnetic Rate: 85 LINDA: 65 LEAH: [...] Pruitt RN 03/07/2014 12:00 Janeen Mccollum AR FORM RAISER - 03/07/2014 11:07 AM PDT PATIENT NAME: [...] needed for Chest pain. 25 tablet 12 [place]-3 Fatty Acids (SALMON OIL-1000 PO) CAPS, [...] Sanchez Date: March 07, 2014 : 1960 Fitness Specialist: Kailey Pruitt RN Device Computer Typesetter Keyliner:[employer] Sense (mV) Impedance (?) Capture (V) Capture (ms) A Lead >5.60 402 1.500 0.09 RV Lead >31.36 522 2.00 0.09 LV Lead Battery Impedance (?): 528 Battery Voltage (V): 2.79 NM Interval (ms): 147 AR Interval (ms): 217 VA Conduction: Mode Switch Events: 0 % of time: 0 -DO ALL OPERATOR: <0.1% AP-DO ALL OPERATOR: 0.1% -VS: 23.8% AP-VS: 76.1% DO ALL OPERATOR: Magnetic Rate: 85 LINDA: 65 LEAH: [...] ruled out. [facility] 12/25/13, shows noncritical coronary artery disease, [...] pain. He is in class II of [place] [facility] [employer] functional class . There are [...] to go back in 3 days to [place] for an attempt of ablation under general [...] palpitations.. He is in class II of [place] 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 There are no [...] pressure logs from [facility] e 5. Lightheadedness and dizziness/ presyncope: A. [...] made to ensure accuracy; however, inadvertent computerized firefighter marine errors may be pre sent. Electronically signed [...] | | | | | [place], | (Primary Dx); | | | | | [place] [address] | Presence of | | | | | [phone] | permanent cardiac | | | | [...] | Monitor | | MD [address] [place] | Interrogation | | | | | [place], | (Primary Dx); | | | | | [place] [address] | Presence of | | | | | [phone] | permanent cardiac | | | | [...] | | | | | | [place], | | | | | | [place] [address] | | | | | | [phone] | | | | | | | [...] 07, 2014 : | | | 1960 Fitness Specialist: Kailey Pruitt RN Device | | | Computer Typesetter Keyliner:[employer] Sense (mV) Impedance (?) Capture (V) | | | Capture (ms) A Lead >5.60 402 1.500 0.09 RV Lead >31.36 522 2.00 | | | 0.09 LV Lead Battery Impedance (?): 528 Battery Voltage (V): | | | 2.79 NM Interval (ms): 147 AR Interval (ms): 217 VA Conduction: | | | Mode Switch Events: 0 % of time: 0 -DO ALL OPERATOR: <0.1% AP-DO ALL OPERATOR: 0.1% -VS: | | | 23.8% AP-VS: 76.1% DO ALL OPERATOR: Magnetic Rate: 85 LINDA: 65 LEAH: [...] | | Date: March 07, 2015DOB: 1960 Fitness Specialist: Kailey Pruitt RN Device | | Computer Typesetter Keyliner:Medtronic Sense (mV) Impedance (?) Capture (V) Capture (ms) A Lead >5.60 | | 402 1.500 0.09 RV Lead >31.36 522 2.00 0.09 LV Lead Battery Impedance (?): 528 | | Battery Voltage (V): 2.79 NM Interval (ms): 147 AR Interval (ms): 217 [place] Conduction: | | Mode Switch Events: 0 % of time: 0 -DO ALL OPERATOR: <0.1% AP-DO ALL OPERATOR: 0.1% -VS: 23.8% AP-VS: 76.1% | | DO ALL OPERATOR: Magnetic Rate: 85 LINDA: 65 LEAH: [...]
--- OUTSIDE RECORDS SUMMARY | ~2019-11-16 | XMS | Encounter Summary ---
Demographics + + + | Address | [address] | | | [place] [address] | + + + | Home Phone [...] Team Providers + +------+ + | Care Tie Maker Name | Role | Phone [...] ROUSE | | | | | [place], [place] | [address] | | | | | [address] | [place] [address] | | | | | [phone] | [phone] | | | | | | | [...] | Monitor | | MD [address] [place] | Interrogation | | | | | [place], | (Primary Dx); | | | | | [place] [address] | Presence of | | | | | [phone] | permanent cardiac | | | | [...] Interrogation | | | | | [place], | (Primary Dx); | | | | | [place] [address] | Presence of | | | | | [phone] | permanent cardiac | | | | [...] W | | | | | | [place], | | | | | | [place] [address] | | | | | | [phone] | | | | | | | [...]
--- OUTSIDE RECORDS SUMMARY | ~2019-11-16 | XMS | Encounter Summary ---
Demographics + + + | Address | [address] | | | [place] [address] | + + + | Home Phone [...] Team Providers + +------+ + | Care Vibrator Operator Name | Role | Phone | + +------+ + PCP | Unavailable | + +------+ + Encounter Details +--------+ + + + + | Date | Type | Department | Care Team | Description | +--------+ + + + + | 11/14/ | [facility] | [facility] | William Hirsch | | | 1999 | Encounter | MED CTR EMERGENCY | MD Cristobal [address] | | | | | CENTER [address] | [address] | | | | | [place] | [place] [address] | | | | | [address] | [phone] | | | | | [phone] | | | +--------+ + + + [...] Dx); | | | | | [place] [address] | Presence of | | | | | [phone] | permanent cardiac | | | | [...] Dx); | | | | | [place] [address] | Presence of | | | | | [phone] | permanent cardiac | | | | [...] W | | | | | | [place], | | | | | | [place] [address] | | | | | | [phone] | | | | | | | | +--------+ + + + + documented as of this encounter Visit Diagnoses Not on filedocumented in this encounter"
--- OUTSIDE RECORDS SUMMARY | ~2019-11-16 | XMS | Encounter Summary ---
Demographics + + + | Address | [address] | | | [place] [address] | + + + | Home Phone [...] + +------+ + | Care Automotive Parts Coordinator Name | Role | Phone | + +------+ + | Kirk French MD | PCP | | + +------+ + Encounter Details +--------+ + + + + | Date | Type | Department | Care Team | Description | +--------+ + + + + | 12/24/ | Anesthesia | [facility] | Jarett Barakat | | | 2018 | Event | [facility] | P, MD [address] | | | | | [address] | [address] [place], [place] | | | | | [place], [place] | [address] | | | | | [address] | [phone] | | | | | [phone] | | | | | | | Arthur [place], | | | | | | [address] | | | | | | [place], [place] | | | | | | [address] | | | | | | | [...] 12/24/17 1435 by | | eral | [id number] catheter system; | Desmond Teresa RN | [...] 2018 | Monitor | | [address] | Interrogation | | | | | [place], | (Primary Dx); | | | | | [place] [address] | [facility] | | | | | [phone] | permanent cardiac | | | | [...] | Monitor | | MD [address] | Interrogation | | | | | [place], | (Primary Dx); | | | | | [place] [address] | [facility] | | | | | [phone] | permanent cardiac | | | | [...] [address] | | | | | | [address] [place], | | | | | | [place] [address] | | | | | | [phone] | | | | | | | [...]
--- OUTSIDE RECORDS SUMMARY | ~2019-11-16 | XMS | Encounter Summary ---
Demographics + + + | Address | [address] | | | [place] [address] | + + + | Home Phone [...] Providers + +------+ + | Care Furnace Tapper Name | Role | Phone | [...] [place] | | | | | | [address] | | | | | | [phone] | | | +--------+ + + + [...] | Monitor | | MD [address] | Interrogation | | | | | [place], | (Primary Dx); | | | | | [place] [address] | Presence of | | | | | [phone] | permanent cardiac | | | | [...] | Monitor | | MD [address] | Interrogation | | | | | [place], | (Primary Dx); | | | | | [place] [address] | Presence of | | | | | [phone] | permanent cardiac | | | | [...] | | | | | | [place] [address] | | | | | | [phone] | | | | | | | | +--------+ + + + + documented as of this encounter Visit Diagnoses Not on filedocumented in this encounter"
--- OUTSIDE RECORDS SUMMARY | ~2019-11-16 | XMS | Encounter Summary ---
Demographics + + + | Address | [address] | | | [place] [address] | + + + | Home Phone [...] Providers + +------+ + | Care Dermatology Sales Representative Name | Role | Phone [...] | CARDIOLOGY [address] | [address] | reprogramming/check | | | | [place], | [place], | DO [place] | | | | [place] [address] | [place] [address] | (Primary Dx); | | | | [phone] | [phone] | Sinoatrial node | | | | [...] | Monitor | | MD [address] | Interrogation | | | | | [place], | (Primary Dx); | | | | | [place] [address] | Presence of | | | | | [phone] | permanent cardiac | | | | [...] | Monitor | | MD [address] | Interrogation | | | | | [place], | (Primary Dx); | | | | | [place] [address] | Presence of | | | | | [phone] | permanent cardiac | | | | [...] | | | | | | [place], | | | | | | [place] [address] | | | | | | [phone] | | | | | | | [...]
--- OUTSIDE RECORDS SUMMARY | ~2019-11-16 | XMS | Encounter Summary ---
Demographics + + + | Address | [address] | | | [place] [address] | + + + | Home Phone [...] + + | 09/01/ | Office | [facility] | Silvia, | Ascending thoracic | | 2015 | Visit | CARDIOLOGY [address] | [place] [address] | aortic aneurysm | | | | [place], | [place], | ([facility]) (Primary Dx); | | | | [place] [address] | [place] [address] | Coronary artery | | | | [phone] | [phone] | disease involving | | | | | | [place] coronary | | | | | | artery of [place] | | | | | | heart [...] this encounter Patient Instructions Patient Instructions aJneen Ramirez ARNP - 09/01/2016 4:03 PM PDT1. [...] non-critical coronary artery d isease involving [place] coronary artery of [place] heart without angina pectoris, essential h ypertension, [...] episode of chest pain while nelly ng [facility], so he took some sublingual nitroglycerin and that resolved some of his symptoms. He has not noticed any increase in shortness of breath at rest or on exertion. He has not started his exercise program and he has been more than 2 months without exercising. He radhika rganda registered to go to the gym earlier [...] health care Coronary artery disease involving [place] coronary artery of [place] heart without angina pectoris Cannabis abuse, daily [...] mouth every evening [address] [facility] Natural Products (OSTEO BI-FLEX/5-LOXIN ADVANCED PO) Take [...] 3rd dose, call 911 100 tablet 3 [place]-3 Fatty Acids (SALMON OIL-1000 PO) CAPS, one capsule by mouth daily twice daily ONE TOUCH DELICA LANCETS [facility] [...] PLTEX 129* 05/12/2016 I [address] records from [facility] for office visit on 06/2016 [facility] [...] in class II of the [place] Heart Ass 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 On physical examination there are no signs of fluid overload. The plan will be to lose weight, modify portion control, start exercising, limit sodium in take and we will start losartan 25 mg once a day with a close monitoring of blood pressure. 2. Non-critical Coronary artery disease involving [place] coronary artery of [place] heart [facility] angina pectoris: A. Normal exercise [...] performed by Dr. Gambino at [facility] on 01/30/2013. Patient had spontaneous PVCs [...] to go back in 3 days to [place] for an attempt of ablation under general [...] this chart may have been created with [employer] voice recognition software. Occasi onal wrong-word or [...] Interrogation | | | | | [place], | (Primary Dx); | | | | | [place] [address] | Presence of | | | | | [phone] | permanent cardiac | | | | [...] 2018 | Monitor | | MD [facility] [place] | Interrogation | | | | | [place], | (Primary Dx); | | | | | [place] [address] | Presence of | | | | | [phone] | permanent cardiac | | | | [...] W | | | | | | [place], | | | | | | [place] [address] | | | | | | [phone] | | | | | | | [...] [place] heart without | | angina pectoris | + + | Essential hypertension with goal blood pressure less than 130/80 | + + | Hyperlipidemia, mixed Mixed hyperlipidemia | + + documented in this encounter
--- OUTSIDE RECORDS SUMMARY | ~2019-11-16 | XMS | Encounter Summary ---
Demographics + + + | Address | [address] | | | [place] [address] | + + + | Home Phone [...] [address] | | | | | | [place], [place] | (Fax) | | | | | [address] | | | | | | [phone] | | | +--------+ + + + [...] 2019 | Monitor | | [address] [place] | Interrogation | | | | | [place], | (Primary Dx); | | | | | [place] [address] | Presence of | | | | | [phone] | permanent cardiac | | | | [...] Dx); | | | | | [place] [address] | Presence of | | | | | [phone] | permanent cardiac | | | | [...] W | | | | | | [place], | | | | | | [place] [address] | | | | | | [phone] | | | | | | | | +--------+ + + + + documented as of this encounter Visit Diagnoses Not on filedocumented in this encounter"
--- OUTSIDE RECORDS SUMMARY | ~2019-11-16 | XMS | Encounter Summary ---
Demographics + + + | Address | [address] | | | [place] [address] | + + + | Home Phone [...] | | CARDIOLOGY [address] | Janeen, ACCESS REGISTRAR [address] | Clearance) | | | | [place], | [place], | | | | | [place] [address] | [place] [address] | | | | | [phone] | [phone] | | | | | | | [...] Dx); | | | | | [place] [address] | Presence of | | | | | [phone] | permanent cardiac | | | | [...] | 2019 | Monitor | | [address] [place] | Interrogation | | | | | [place], | (Primary Dx); | | | | | [place] [address] | Presence of | | | | | [phone] | permanent cardiac | | | | [...] W | | | | | | [place], | | | | | | [place] [address] | | | | | | [phone] | | | | | | | | +--------+ + + + + documented as of this encounter Visit Diagnoses Not on filedocumented in this encounter"
--- OUTSIDE RECORDS SUMMARY | ~2019-11-16 | XMS | Encounter Summary ---
Demographics + + + | Address | [address] | | | [place] [address] | + + + | Home Phone [...] Providers + +------+ + | Care Pain Management Nurse Name | Role | Phone | [...] [address] | | | | | [address] | [place] | | | | | [phone] | [address] | | | | | | | [...] 2018 | Monitor | | [facility] | Interrogation | | | | | [place], | (Primary Dx); | | | | | [place] [address] | Presence of | | | | | [phone] | permanent cardiac | | | | [...] 2018 | Monitor | | [address] [place] | Interrogation | | | | | [place], | (Primary Dx); | | | | | [place] [address] | Presence of | | | | | [phone] | permanent cardiac | | | | [...] W | | | | | | [place], | | | | | | [place] [address] | | | | | | [phone] | | | | | | | | +--------+ + + + + documented as of this encounter Visit Diagnoses Not on filedocumented in this encounter"
--- OUTSIDE RECORDS SUMMARY | ~2019-11-16 | XMS | Encounter Summary ---
Demographics + + + | Address | [address] | | | [place] [address] | + + + | Home Phone [...] [address]VE | | | | | [facility] | [place] | | | | | [place], [place] | [address] | | | | | [address] | | | | | | [phone] | | | +--------+ + + + [...] Dx); | | | | | [place] [address] | Presence of | | | | | [phone] | permanent cardiac | | | | [...] 2018 | Monitor | | [address] [place] | Interrogation | | | | | [facility], | (Primary Dx); | | | | | [place] [address] | Presence of | | | | | [phone] | permanent cardiac | | | | [...] | | | | | | [place], | | | | | | [place] [address] | | | | | | [phone] | | | | | | | | +--------+ + + + + documented as of this encounter Visit Diagnoses Not on filedocumented in this encounter"
--- OUTSIDE RECORDS SUMMARY | ~2019-11-16 | XMS | Encounter Summary ---
Demographics + + + | Address | [address] | | | [place] [address] | + + + | Home Phone [...] Team Providers + +------+ + | Care Facsimile Operator Name | Role | Phone | [...] + + | 12/23/ | Telephone | [facility] | Emmanuel Daniel MD | Other (Needs to know | | 2017 | | GASTROENTEROLOGY | [address], [place] | what he can eat | | | | [address] [place] | [address] [place], [place] | today) | | | | [address] [place], [place] | [address] | | | | | [address] | | | | | | [phone] | | | +--------+ + + + [...] Dx); | | | | | [place] [address] | Presence of | | | | | [phone] | permanent cardiac | | | | [...] | [facility] | Interrogation | | | | | [place], | (Primary Dx); | | | | | [place] [address] | Presence of | | | | | [phone] | permanent cardiac | | | | [...] | | | | | | [place], | | | | | | [place] [address] | | | | | | [phone] | | | | | | | | +--------+ + + + + documented as of this encounter Visit Diagnoses Not on filedocumented in this encounter"
--- OUTSIDE RECORDS SUMMARY | ~2019-11-16 | XMS | Encounter Summary ---
Demographics + + + | Address | [address] | | | [place] [address] | + + + | Home Phone [...] Providers + +------+ + | Care Integration Director Name | Role | Phone | [...] 2019 | | GASTROENTEROLOGY | [address], [place] | | | | | [address] [place] | [address] [place], [place] | | | | | [address] [place], [place] | [address] | | | | | [address] | | | | | | [phone] | | | +--------+ + + + [...] | Interrogation | | | | | [facility] | (Primary Dx); | | | | | [place] [address] | Presence of | | | | | [phone] | permanent cardiac | | | | [...] Dx); | | | | | [place] [address] | Presence of | | | | | [phone] | permanent cardiac | | | | [...] W | | | | | | [place], | | | | | | [place] [address] | | | | | | [phone] | | | | | | | | +--------+ + + + + documented as of this encounter Visit Diagnoses Not on filedocumented in this encounter"
--- OUTSIDE RECORDS SUMMARY | ~2019-11-16 | XMS | Encounter Summary ---
Demographics + + + | Address | [address] | | | [place] [address] | + + + | Home Phone [...] 2017 | | CARDIOLOGY [address] | SATELLITE TV TECHNICIAN INSTALLER [address] | | | | | [place], | [place], [place] | | | | | [place] [address] | [address] | | | | | [phone] | | | +--------+--------+ + + + [...] Interrogation | | | | | [place], | (Primary Dx); | | | | | [place] [address] | Presence of | | | | | [phone] | permanent cardiac | | | | [...] Interrogation | | | | | [place], | (Primary Dx); | | | | | [place] [address] | Presence of | | | | | [phone] | permanent cardiac | | | | [...] | | | | | | [place] [address] | | | | | | [phone] | | | | | | | | +--------+ + + + + documented as of this encounter Visit Diagnoses Not on filedocumented in this encounter"
--- OUTSIDE RECORDS SUMMARY | ~2019-11-16 | XMS | Encounter Summary ---
Demographics + + + | Address | [address] | | | [place] [address] | + + + | Home Phone [...] Providers + +------+ + | Care General Neurologist Name | Role | Phone | + +------+ + | Kirk French MD | PCP | | + +------+ + Encounter Details +--------+ + + + + | Date | Type | Department | Care Team | Description | +--------+ + + + + | 01/18/ | Hospital | [facility] GENERIC IP | Conversion | Diagnosis unknown | | 2017 | Encounter | CONVERSION DE[address] | Transaction, | | | | | [address] | Provider Unknown | | | | | [place], [place] | [phone] | | | | | [address] | | | | | | [phone] | | | +--------+ + + + [...] + + + +---------+ + + | [place]-3 Fatty | CAPS, one capsule by | [...] Dx); | | | | | [place] [address] | Presence of | | | | | [phone] | permanent cardiac | | | | [...] | 2018 | Monitor | | [address] | Interrogation | | | | | [place], | (Primary Dx); | | | | | [place] [address] | Presence of | | | | | [phone] | permanent cardiac | | | | [...] W | | | | | | [place], | | | | | | [place] [address] | | | | | | [phone] | | | | | | | [...]
--- OUTSIDE RECORDS SUMMARY | ~2019-11-16 | XMS | Encounter Summary ---
Demographics + + + | Address | [address] | | | [place] [address] | + + + | Home Phone [...] Providers + +------+ + | Care Color Drum Worker Name | Role | Phone | [...] Refill | | 2013 | | MEDICINE [place] | DO [address] | | | | | [address] | [place] | | | | | [place] | [address] | | | | | [address] | | | | | | [phone] | | | +--------+--------+ + + + [...] | Monitor | | MD [address] | Interrogation | | | | | [place], | (Primary Dx); | | | | | [place] [address] | Presence of | | | | | [phone] | permanent cardiac | | | | [...] | Monitor | | MD [address] | Interrogation | | | | | [place], | (Primary Dx); | | | | | [place] [address] | Presence of | | | | | [phone] | permanent cardiac | | | | [...] | | | | | | [place] [address] | | | | | | [phone] | | | | | | | | +--------+ + + + + documented as of this encounter Visit Diagnoses Not on filedocumented in this encounter"
--- OUTSIDE RECORDS SUMMARY | ~2019-11-16 | XMS | Encounter Summary ---
Demographics + + + | Address | [address] | | | [place] [address] | + + + | Home Phone [...] Providers + +------+ + | Care Cardiac Exercise Specialist Name | Role | Phone | [...] + | 01/30/ | Telephone | [facility] | Daljit Singletary, | Other | | 2019 | | CARDIOLOGY [address] | MD [address] | | | | | [place], | [place], | | | | | [place] [address] | [place] [address] | | | | | [phone] | [phone] | | | | | | | [...] | Monitor | | MD [address] | Interrogation | | | | | [place], | (Primary Dx); | | | | | [place] [address] | Presence of | | | | | [phone] | permanent cardiac | | | | [...] | Monitor | | MD [address] | Interrogation | | | | | [place], | (Primary Dx); | | | | | [place] [address] | Presence of | | | | | [phone] | permanent cardiac | | | | [...] W | | | | | | [place], | | | | | | [place] [address] | | | | | | [phone] | | | | | | | [...] 05/02/2019, Expires: | | | | | [place] coronary | 01/30/2020 | | | | | artery of [place] | | | | | | heart [...] 05/02/2019, Expires: | | | | | [place] coronary | 01/31/2020 | | | | | artery of [place] | | | | | | heart without angina | | | | | | pectoris | | | | | | Hyperlipidemia, | | | | | | mixed | | + +------+--------+ + + documented as of this encounter Visit Diagnoses + + | Diagnosis | + + | Coronary artery disease involving [place] coronary artery of [place] heart without | | angina pectoris - Primary | + + | Hyperlipidemia, mixed Mixed hyperlipidemia | + + documented in this encounter"
--- OUTSIDE RECORDS SUMMARY | ~2019-11-16 | XMS | Encounter Summary ---
Demographics + + + | Address | [address] | | | [place] [address] | + + + | Home Phone [...] | Aneurysmal | [place], | [address] [place] | | | | | dilatation | PAR[place] | [place], | | | | | (HCC) | [address] | [place] | | | | | Procedures | [place] | [address] | | | | | ECHO | [place], | Phone: | | | | | Complete | [place] | [phone] | | | | | | [address] | Fax: | | | | | | Phone: | [phone] | | | | | | [phone] | | | | | | | Fax: | | | | | | | [phone] | | +--------+--------+ + + + + Encounter Details +--------+ + + + + | Date | Type | Department | Care Team | Description | +--------+ + + + + | 11/16/ | Orders Only | [facility] [place] | [place], | Aneurysmal | | 2017 | | CARDIOLOGY [address] | PARISA Solis [address] | dilatation (HCC) | | | | [place], | [place], | (Primary Dx) | | | | [place] [address] | [place] [address] | | | | | [phone] | [phone] | | | | | | | [...] | MD [facility] | Interrogation | | | | | [place], | (Primary Dx); | | | | | [place] [address] | Presence of | | | | | [phone] | permanent cardiac | | | | [...] | MD [address] [facility] | Interrogation | | | | | [place], | (Primary Dx); | | | | | [place] [address] | Presence of | | | | | [phone] | permanent cardiac | | | | [...] | | | | | | [place], | | | | | | [place] [address] | | | | | | [phone] | | | | | | | [...] Patient Name VICTOR HUGO | | | KINTA Room Number KIRK Patient | | | [id number] Date of Study 11/16/2017 Number | | | Visit Number [id number] | | | Referring Physician GURJIT TROY Number | | | NORMA MCLAUGHLINN Date | | | of 1960 National Coverage Specialist ROMAINE | | | MARISSA TIPTON Age 57 year(s) Interpreting | | | GURJIT TROY | | | Instructor Business Education DALJIT SINGLETARY, | | | MD | | | Gender Male Nurse | | | Stress Ambulatory Technologist Procedure Type of | | | [...] | | | EF | | | Lsozdgudu64% Left Ventricle Diastolic Dimension: 5.12 cm | [...] Volume: 46.33 ml | | | EF Wywemmmlq32% | | | | | | Left [...] Rad Results In - 11/16/2017 1:48 PM [facility] Transthoracic Echocardiography Report | | (TTE) Demographics Patient Name VICTOR HUGO BARRY Room Number KIRK | | Patient [id number] Date of Study 11/16/2017 Number Visit Number | | [id number] Referring Physician GURJIT TROY | | Number NORMA SOLIS Date of | | 1960 National Coverage Specialist ROMAINE TIPTON PARESH Age 57 year(s) | | Interpreting GURJIT TROY Instructor Business Education | | DALJIT SINGLETARY MD | | [...] [place] Volume: 46.33 ml | | EF Aczleqbkq24% Left Ventricle Diastolic Dimension: 5.12 cm Systolic [...] LA Volume: 46.33 ml | | EF Hmpxtlfjy51% | | | | Left Ventricle | [...]
--- OUTSIDE RECORDS SUMMARY | ~2019-11-16 | XMS | Encounter Summary ---
Demographics + + + | Address | [address] | | | [place] [address] | + + + | Home Phone [...] Providers + +------+ + | Care Finished Metal Repairer Name | Role | Phone | + +------+ + | Kirk French MD | PCP | | + +------+ + Encounter Details +--------+ + + + + | Date | Type | Department | Care Team | Description | +--------+ + + + + | 12/24/ | Orders Only | [facility] | Conversion | | | 2018 | | [facility] | Transaction, | | | | | PRIMARY CARE [address] | Provider Unknown | | | | | [address] | [phone] | | | | | [place] | | | | | | [address] | | | | | | [phone] | | | +--------+ + + + [...] | Monitor | | MD [address] | Interrogation | | | | | [place], | (Primary Dx); | | | | | [place] [address] | Presence of | | | | | [phone] | permanent cardiac | | | | [...] | Monitor | | MD [address] | Interrogation | | | | | [place], | (Primary Dx); | | | | | [place] [address] | Presence of | | | | | [phone] | permanent cardiac | | | | [...] W | | | | | | [place], | | | | | | [place] [address] | | | | | | [phone] | | | | | | | [...]
--- OUTSIDE RECORDS SUMMARY | ~2019-11-16 | XMS | Encounter Summary ---
Demographics + + + | Address | [address] | | | [place] [address] | + + + | Home Phone [...] + +------+ + | Care Senior Analyst Programmer Name | Role | Phone | [...] 2019 | | GASTROENTEROLOGY | [address], [place] | Syndrome | | | | [address] [place] | [address] [place], [place] | | | | | [address] [place], [place] | [address] | | | | | [address] | | | | | | [phone] | | | +--------+ + + + [...] Interrogation | | | | | [place], | (Primary Dx); | | | | | [place] [address] | Presence of | | | | | [phone] | permanent cardiac | | | | [...] Interrogation | | | | | [place], | (Primary Dx); | | | | | [place] [address] | Presence of | | | | | [phone] | permanent cardiac | | | | [...] | | | | | | [place] [address] | | | | | | [phone] | | | | | | | | +--------+ + + + + documented as of this encounter Visit Diagnoses Not on filedocumented in this encounter"
--- OUTSIDE RECORDS SUMMARY | ~2019-11-16 | XMS | Encounter Summary ---
Demographics + + + | Address | [address] | | | [place] [address] | + + + | Home Phone [...] Providers + +------+ + | Care Senior Functional Analyst Name | Role | Phone | [...] Provider Unknown | | | | | [place], [place] | [phone] | | | | | [address] | | | | | | [phone] | | | +--------+ + + + [...] + + + +---------+ + + | [place]-3 Fatty | CAPS, one capsule by | [...] | | | | | | | #[id number], exp 07/2016 | | | | | [...] Dx); | | | | | [place] [address] | Presence of | | | | | [phone] | permanent cardiac | | | | [...] | 2018 | Monitor | | [address] | Interrogation | | | | | [place], | (Primary Dx); | | | | | [place] [address] | Presence of | | | | | [phone] | permanent cardiac | | | | [...] W | | | | | | [place], | | | | | | [place] [address] | | | | | | [phone] | | | | | | | [...]
--- OUTSIDE RECORDS SUMMARY | ~2019-11-16 | XMS | Encounter Summary ---
Demographics + + + | Address | [address] | | | [place] [address] | + + + | Home Phone [...] + +------+ + | Care Director Of Market Intelligence Name | Role | Phone | [...] | | | | | | [place] [address] | | | | | | [phone] | | | +--------+ + + + [...] | 2019 | Monitor | | [address] [place] | Interrogation | | | | | [place], | (Primary Dx); | | | | | [place] [address] | Presence of | | | | | [phone] | permanent cardiac | | | | [...] Dx); | | | | | [place] [address] | Presence of | | | | | [phone] | permanent cardiac | | | | [...] W | | | | | | [place], | | | | | | [place] [address] | | | | | | [phone] | | | | | | | | +--------+ + + + + documented as of this encounter Visit Diagnoses Not on filedocumented in this encounter"
--- OUTSIDE RECORDS SUMMARY | ~2019-11-16 | XMS | Encounter Summary ---
Demographics + + + | Address | [address] | | | [place] [address] | + + + | Home Phone [...] Team Providers + +------+ + | Care Furrier Shop Supervisor Name | Role | Phone [...] + | 12/23/ | Telephone | [facility] | Daljit Singletary, | Other (question | | 2015 | | CARDIOLOGY [address] | [address] | about diet | | | | [place], | [place], | medication) | | | | [place] [address] | [place] [address] | | | | | [phone] | [phone] | | | | | | | [...] Interrogation | | | | | [place], | (Primary Dx); | | | | | [place] [address] | Presence of | | | | | [phone] | permanent cardiac | | | | [...] | Monitor | | MD [address] | Interrogation | | | | | [place], | (Primary Dx); | | | | | [place] [address] | Presence of | | | | | [phone] | permanent cardiac | | | | [...] | | | | | | [place] [address] | | | | | | [phone] | | | | | | | | +--------+ + + + + documented as of this encounter Visit Diagnoses Not on filedocumented in this encounter"
--- OUTSIDE RECORDS SUMMARY | ~2019-11-16 | XMS | Encounter Summary ---
Demographics + + + | Address | [address] | | | [place] [address] | + + + | Home Phone [...] Providers + +------+ + | Care Adult Manager Name | Role | Phone | + +------+ + PCP | Unavailable | + +------+ + Encounter Details +--------+ + + + + | Date | Type | Department | Care Team | Description | +--------+ + + + + | 06/25/ | [facility] | [facility] | Daljit Singletary, | | | 2008 | Encounter | MED CTR XRAY [address] | [address] | | | | | [place] | [place], | | | | | [place] [address] | [place] [address] | | | | | [phone] | [phone] | | | | | | | [...] Interrogation | | | | | [place], | (Primary Dx); | | | | | [place] [address] | Presence of | | | | | [phone] | permanent cardiac | | | | [...] Interrogation | | | | | [place], | (Primary Dx); | | | | | [place] [address] | Presence of | | | | | [phone] | permanent cardiac | | | | [...] | | | | | | [place] [address] | | | | | | [phone] | | | | | | | | +--------+ + + + + documented as of this encounter Visit Diagnoses Not on filedocumented in this encounter"
--- OUTSIDE RECORDS SUMMARY | ~2019-11-16 | XMS | Encounter Summary ---
Demographics + + + | Address | [address] | | | [place] [address] | + + + | Home Phone [...] + | 09/13/ | [facility] | [facility] | Jonathan, | | | 2009 | Encounter | MED CTR EMERGENCY | Martell Cr MD [address] | | | | | CENTER [address] | [place] | | | | | [place] | [place] [address] | | | | | [address] | [phone] | | | | | [phone] | | | +--------+ + + + [...] Interrogation | | | | | [place], | (Primary Dx); | | | | | [place] [address] | Presence of | | | | | [phone] | permanent cardiac | | | | [...] Interrogation | | | | | [place], | (Primary Dx); | | | | | [place] [address] | Presence of | | | | | [phone] | permanent cardiac | | | | [...] | | | | | | [place] [address] | | | | | | [phone] | | | | | | | | +--------+ + + + + documented as of this encounter Visit Diagnoses Not on filedocumented in this encounter"
--- OUTSIDE RECORDS SUMMARY | ~2019-11-16 | XMS | Encounter Summary ---
Demographics + + + | Address | [address] | | | [place] [address] | + + + | Home Phone [...] | [facility] | | | and [...] Providers + +------+ + | Care Tea Bag Machine Tender Name | Role | Phone [...] | 05/08/ | Telephone | [facility] | Emmanuel Daniel MD | Other | | 2019 | | GASTROENTEROLOGY | [address], [place] | | | | | [address] [place] | [address] [place], [place] | | | | | [address] [place], [place] | [address] | | | | | [address] | | | | | | [phone] | | | +--------+ + + + [...] | Monitor | | MD [address] | Interrogation | | | | | [place], | (Primary Dx); | | | | | [place] [address] | Presence of | | | | | [phone] | permanent cardiac | | | | [...] | Monitor | | MD [address] | Interrogation | | | | | [place], | (Primary Dx); | | | | | [place] [address] | Presence of | | | | | [phone] | permanent cardiac | | | | [...] | | | | | | [place] [address] | | | | | | [phone] | | | | | | | | +--------+ + + + + documented as of this encounter Visit Diagnoses Not on filedocumented in this encounter"
--- OUTSIDE RECORDS SUMMARY | ~2019-11-16 | XMS | Encounter Summary ---
Demographics + + + | Address | [address] | | | [place] [address] | + + + | Home Phone [...] Team Providers + +------+ + | Care Irish Moss Gatherer Name | Role | Phone | + +------+ + | Michael Amanda DO | PCP | | + +------+ + Encounter Details +--------+ + + + + | Date | Type | Department | Care Team | Description | +--------+ + + + + | 06/26/ | Hospital | [facility] | Michael Amanda, | Diplopia | | 2012 | Encounter | MED CTR LABORATORY | DO [address] | | | | | [address] [place] | [place], [place] | | | | | [place], [place] | [address] | | | | | [address] | | | | | | [phone] | | | +--------+ + + + [...] + + + +---------+ + + | Devine-3 Fatty | CAPS, one capsule by | [...] 2018 | Monitor | | [address] | Interrogation | | | | | [place], | (Primary Dx); | | | | | [place] [address] | Presence of | | | | | [phone] | permanent cardiac | | | | [...] 2018 | Monitor | | [address] | Interrogation | | | | | [place], | (Primary Dx); | | | | | [place] [address] | Presence of | | | | | [phone] | permanent cardiac | | | | [...] | | | | | | [address], | | | | | | [place] [address] | | | | | | [phone] | | | | | | | [...] + | [facility] | [address] | [place] | [phone] | | [facility] | | [address] | | | - LABORATORY | | | | + + + + + | [facility] | [address] | [place] | | | [facility] | | [address] | | | - LABORATORY | | [...] performed on the Javid | uIU/mL | [facility] | | | | Aldo Access [...] + | [facility] | [address] | [place] | [phone] | | [facility] | | [address] | | | - LABORATORY | | | | + + + + + | [facility] | [address] | [place], [place] | | | [facility] | | [address] | | | - LABORATORY | | [...] [address] | [place] | [phone] | | [facility] | | [address] | | | - LABORATORY | | | | + + + + + | [facility] | [address] | [place], [place] | | | [facility] | | [address] | | | - LABORATORY | | [...] + | [facility] | [address] | [place], [place] | [phone] | | [facility] | | [address] | | | - LABORATORY | | | | + + + + + | [facility] | [address] | [place], [place] | | | [facility] | | [address] | | | - LABORATORY | | [...] + | [facility] | [address] | [place] | [phone] | | [facility] | | [address] | | | - LABORATORY | | | | + + + + + | [facility] | [address] | [place] | | | [facility] | | [address] | | | - LABORATORY | | [...] performed on the Javid | uIU/mL | [facility] | | | | Aldo Access [...] + | [facility] | [address] | [place] | [phone] | | [facility] | | [address] | | | - LABORATORY | | | | + + + + + | [facility] | [address] | [place] | | | [facility] | | [address] | | | - LABORATORY | | | | + + + + + documented in this encounter Visit Diagnoses + + | Diagnosis | + + | Diplopia | + + documented in this encounter"
--- OUTSIDE RECORDS SUMMARY | ~2019-11-16 | XMS | Encounter Summary ---
Demographics + + + | Address | [address] | | | [place] [address] | + + + | Home Phone [...] | Author | [facility] | | | [...] Providers + +------+ + | Care Hr Analyst Name | Role | Phone | [...] [address] | | | | | [address] | [place] | | | | | [phone] | [address] | | | | | | [phone] | | | | | | | [...] Notes by Kylah Fraser CMA at 04/11/18 1276 Author: Kylah Fraser CMA Service: (none) Author Type: Electronic Prepress Technician Filed: 04/19/18 1118 Encounter Date: 04/11/2018 Status: Signed Blasting Gang Miner: Kylah Fraser CMA (Electronic Prepress Technician) See telephone encounter 04/19/18. aKren pfeiffer in this encounter Plan of Treatment +--------+ + + + + | Date | Type | Specialty | Care Team | Description | +--------+ + + + + | 11/20/ | Implant | Cardiology | Daljit Singletary, | Remote Device | | 2018 | Monitor | | MD [address] | Interrogation | | | | | [place], | (Primary Dx); | | | | | [place] [address] | Presence of | | | | | [phone] | permanent cardiac | | | | [...] | Monitor | | MD [address] | Interrogation | | | | | [place], | (Primary Dx); | | | | | [place] [address] | Presence of | | | | | [phone] | permanent cardiac | | | | [...] W | | | | | | [place], | | | | | | [place] [address] | | | | | | [phone] | | | | | | | [...]
--- OUTSIDE RECORDS SUMMARY | ~2019-11-16 | XMS | Encounter Summary ---
Demographics + + + | Address | [address] | | | [place] [address] | + + + | Home Phone [...] Providers + +------+ + | Care Meat Processor Name | Role | Phone | [...] | Visit | CARDIOLOGY [address] | MANAGER SOCIAL RESPONSIBILITY [address] | Dx) | | | | [place], | [place], [place] | | | | | [place] [address] | [address] | | | | | [phone] | | | +--------+---------+ + + + [...] Sanchez Date: December 21, 2012 : 1960 Skiing Teacher: PARISA Velazquez Device Bus Mechanic: Medtronic Sense (mV) Impedance (?) Capture (V) Capture (ms) A Lead 4-5.6 423 1.5 0.09 RV Lead >31.36 539 2.0 0.09 LV Lead Battery Impedance (?): 301 Battery Voltage (V): 2.8 AL Interval (ms): 140 AR Interval (ms): 210 VA Conduction: Mode Switch Events: N/A % of time: -SURGEON PARTNER: 0.6 AP-SURGEON PARTNER: 1.3 -VS: 23.9 AP-VS: 74.2 SURGEON PARTNER: Magnetic Rate: 85 LINDA: 65 LEAH: Current [...] Dx); | | | | | [place] [address] | Presence of | | | | | [phone] | permanent cardiac | | | | [...] Dx); | | | | | [place] [address] | Presence of | | | | | [phone] | permanent cardiac | | | | [...] W | | | | | | [place], | | | | | | [place] [address] | | | | | | [phone] | | | | | | | [...]
--- OUTSIDE RECORDS SUMMARY | ~2019-11-16 | XMS | Encounter Summary ---
Demographics + + + | Address | [address] | | | [place] [address] | + + + | Home Phone [...] + + + + | 06/12/ | [facility] | [facility] | Hunter Antunez, | | | 2007 - | Encounter | MED CTR ICU [address] | MD [address] | | | | | [place], | [place] | | | 06/15/ | | [place] [address] | [address] | | | 2007 | | [phone] | | | +--------+ + + + [...] Dx); | | | | | [place] [id number] | Presence of | | | | | [phone] | permanent cardiac | | | | [...] | | MD Sim [facility] | Interrogation | | | | | [place], | (Primary Dx); | | | | | [place] [id number] | Presence of | | | | | [phone] | permanent cardiac | | | | [...] | | | | | | [place] [address] | | | | | | [phone] | | | | | | | | +--------+ + + + + documented as of this encounter Visit Diagnoses Not on filedocumented in this encounter"
--- OUTSIDE RECORDS SUMMARY | ~2019-11-16 | XMS | Encounter Summary ---
Demographics + + + | Address | [address] [place] [address] | | | [place] [address] | + + + | Home Phone [...] [place] | | | | | [address] | | + + + + + [...] [facility] [address] | MD [address] | | | | | [address] | [facility] [place] | | | | | Mailcode: [place] | [address] | | | | | for Health and | [phone] | | | | | [facility] | | | | | | [facility] [place] | | | | | | [address] | | | | | | [phone] | | | +--------+ + + + [...]
--- OUTSIDE RECORDS SUMMARY | ~2019-11-16 | XMS | Encounter Summary ---
Demographics + + + | Address | [address] | | | [place] [address] | + + + | Home Phone [...] Team Providers + +------+ + | Care Bit Sharpener Name | Role | Phone | + +------+ + | Michael Amanda DO | PCP | | + +------+ + Encounter Details +--------+ + + + + | Date | Type | Department | Care Team | Description | +--------+ + + + + | 11/03/ | Emergency | [facility] | Eliel Calzada, | Palpitations; | | 2013 - | | MEDICAL CENTER | MD Chiquis ORO | Atypical chest pain | | | | EMERGENCY CENTER | [facility] | | | 11/04/ | | [address] | [address] | | | 2013 | | [place], [place] | | | | | | [address] | | | | | | [phone] | | | +--------+ + + + [...] + + + +---------+ + + | Dixfield-3 Fatty | CAPS, one capsule by | [...] Dx); | | | | | [place] [address] | Presence of | | | | | [phone] | permanent cardiac | | | | [...] 2019 | Monitor | | MD Sim [address] | Interrogation | | | | | [place], | (Primary Dx); | | | | | [place] [address] | Presence of | | | | | [phone] | permanent cardiac | | | | [...] W | | | | | | [place], | | | | | | [place] [address] | | | | | | [phone] | | | | | | | [...] CHEST 2 VIEW FRONTAL | | AND PTGAHKH1911/03/2014 11:56 PM History: 54 years. Male. Acute [...] EXTERNAL | | | | performed at [facility];888 | | LAB | | | | [address];[place] | | | | | | [address] | | | | + + + + + -+ | RED CELL | 4.97Comment: Testing | 4.20 - 5.70 | EXTERNAL | | | COUNT | performed at [facility];888 | M/uL | LAB | | | | [address];[place] | | | | | | [address] | | | | + + + + + -+ | Hgb | 16.8Comment: Testing | 13.2 - 17.0 | EXTERNAL | | | | performed at [facility];888 | g/dL | LAB | | | | [address];[place] | | | | | | [address] | | | | + + + + + -+ | Hematocrit, | 48.2Comment: Testing | 39.0 - 50.0 % | EXTERNAL | | | POC | performed at [facility];[address] | | LAB | | | [address];[place] | | | | | | [address] | | | | + + + + + -+ | MCV | 97.1Comment: Testing | 80.0 - 100.0 fl | EXTERNAL | | | | performed at [facility];[address] | | LAB | | | [address];[place] | | | | | | [address] | | | | + + + + + -+ | MCH | 33.9Comment: Testing | 27.0 - 34.0 pg | EXTERNAL | | | | performed at [facility];[address] | | LAB | | | | [address];[place] | | | | | | [address] | | | | + + + + + -+ | MCHC | 34.9Comment: Testing | 32.0 - 35.5 | EXTERNAL | | | | performed at [facility];888 | g/dL | LAB | | | | [address];[place] | | | | | | [address] | | | | + + + + + -+ | RDW-CV | 42.4Comment: Testing | 37 - 53 fl | EXTERNAL | | | | performed at [facility];[address] | | LAB | | | | [address];[place] | | | | | | [address] | | | | + + + + + -+ | Platelet | 143 (L)Comment: Testing | 150 - 400 K/uL | EXTERNAL | | | Count | performed at [facility];888 | | LAB | | | Plasma | [address];[place] | | | | | | [address] | | | | + + + + + -+ | MPV | 9.0Comment: Testing | fl | EXTERNAL | | | | performed at [facility];[address] | | LAB | | | | [address];[place] | | | | | | [address] | | | | + + + + + -+ | Differentia | AUTOMATEDComment: | | EXTERNAL | | | l Type | Testing performed at | | LAB | | | | [facility];[address];[place] [address] | | | | + + + + + -+ | % Segmented | 61.6Comment: Testing | % | EXTERNAL | | | | performed at [facility];[address] | | LAB | | | Neutrophils | [address];[place] | | | | | | [address] | | | | + + + + + -+ | % | 27.8Comment: Testing | % | EXTERNAL | | | Lymphocytes | performed at [facility];[address] | | LAB | | | | [address];[place] | | | | | | [address] | | | | + + + + + -+ | % Monocytes | 8.7Comment: Testing | % | EXTERNAL | | | | performed at [facility];[address] | | LAB | | | | [address];[place] | | | | | | [address] | | | | + + + + + -+ | % | 0.8Comment: Testing | % | EXTERNAL | | | Eosinophils | performed at [facility];[address] | | LAB | | | | [address];[place] | | | | | | [address] | | | | + + + + + -+ | % Basophils | 1.1Comment: Testing | % | EXTERNAL | | | | performed at [facility];[address] | | LAB | | | | [address];[place] | | | | | | [address] | | | | + + + + + -+ | Absolute | 5.4Comment: Testing | 1.9 - 7.4 K/uL | EXTERNAL | | | Segmented | performed at [facility];[address] | | LAB | | | Neutrophils | [address];[place] | | | | | | [address] | | | | + + + + + -+ | Absolute | 2.4Comment: Testing | 1.0 - 3.9 K/uL | EXTERNAL | | | Lymphocytes | performed at [facility];[address] | | LAB | | | | [address];[place] | | | | | | [address] | | | | + + + + + -+ | Absolute | 0.8Comment: Testing | 0 - 0.8 K/uL | EXTERNAL | | | Monocytes | performed at [facility];[address] | | LAB | | | | [address];[place] | | | | | | [address] | | | | + + + + + -+ | Absolute | 0.1Comment: Testing | 0 - 0.5 K/uL | EXTERNAL | | | Eosinophils | performed at [facility];[address] | | LAB | | | | [address];[place] | | | | | | [address] | | | | + + + + + -+ | Absolute | 0.1Comment: Testing | 0 - 0.1 K/uL | EXTERNAL | | | Basophils | performed at [facility];[address] | | LAB | | | | [address];[place] | | | | | | [address] | | | | + + + + + -+ | RBC | SLIDE SCANNED, AGREES | | EXTERNAL | | | Morphology | WITH AUTOMATED | | LAB | | | | RESULTS.Comment: Testing | | | | | | performed at [facility];[address] | | | | | | [address];[place] | | | | | | [address] | | | | + + + + + -+ | Na | 140Comment: Testing | 135 - 143 | EXTERNAL | | | | performed at [facility];888 | mmol/L | LAB | | | | [address];[place] | | | | | | [address] | | | | + + + + + -+ | K | 3.9Comment: Testing | 3.5 - 4.9 | EXTERNAL | | | | performed at [facility];888 | mmol/L | LAB | | | | [address];[place] | | | | | | [address] | | | | + + + + + -+ | Cl | 107Comment: Testing | 99 - 109 mmol/L | EXTERNAL | | | | performed at [facility];[address] | | LAB | | | | [address];[place] | | | | | | [address] | | | | + + + + + -+ | CO2 | 28Comment: Testing | 23 - 32 mmol/L | EXTERNAL | | | | performed at [facility];[address] | | LAB | | | | [address];[place] | | | | | | [address] | | | | + + + + + -+ | Anion Gap | 9Comment: Testing | 5 - 20 mmol/L | EXTERNAL | | | | performed at [facility];[address] | | LAB | | | | [address];[place] | | | | | | [address] | | | | + + + + + -+ | Glucose, | 97Comment: Testing | 65 - 99 mg/dL | EXTERNAL | | | Fasting | performed at [facility];[address] | | LAB | | | | [address];[place] | | | | | | [address] | | | | + + + + + -+ | BUN | 14Comment: Testing | 8 - 25 mg/dL | EXTERNAL | | | | performed at [facility];[address] | | LAB | | | | [address];[place] | | | | | | [address] | | | | + + + + + -+ | Creatinine | 0.98Comment: Testing | 0.70 - 1.30 | EXTERNAL | | | | performed at [facility];888 | mg/dL | LAB | | | | [address];[place] | | | | | | [address] | | | | + + + + + -+ | BUN/Creatin | 14Comment: Testing | | EXTERNAL | | | ine Ratio | performed at [facility];[address] | | LAB | | | | [address];[place] | | | | | | [address] | | | | + + + + + -+ | Calcium | 8.8Comment: Testing | 8.5 - 10.2 | EXTERNAL | | | | performed at [facility];888 | mg/dL | LAB | | | | [address];[place] | | | | | | [address] | | | | + + + + + -+ | Protein, | 6.9Comment: Testing | 6.3 - 8.2 g/dL | EXTERNAL | | | Total | performed at [facility];[address] | | LAB | | | | [address];[place] | | | | | | [address] | | | | + + + + + -+ | Albumin | 3.7Comment: Testing | 3.6 - 5.0 g/dL | EXTERNAL | | | | performed at [facility];[address] | | LAB | | | | [address];[place] | | | | | | [address] | | | | + + + + + -+ | Globulin | 3.2Comment: Testing | 1.3 - 4.9 g/dL | EXTERNAL | | | | performed at [facility];[address] | | LAB | | | | [address];[place] | | | | | | [address] | | | | + + + + + -+ | A/G Ratio | 1.2Comment: Testing | 1.0 - 2.4 | EXTERNAL | | | | performed at [facility];888 | | LAB | | | | [address];[place] | | | | | | [address] | | | | + + + + + -+ | Bilirubin | 0.9Comment: Testing | 0.1 - 1.5 mg/dL | EXTERNAL | | | Total | performed at [facility];[address] | | LAB | | | | [address];[place] | | | | | | [address] | | | | + + + + + -+ | ALP, | 60Comment: Testing | 35 - 115 U/L | EXTERNAL | | | External | performed at [facility];888 | | LAB | | | | [address];[place] | | | | | | [address] | | | | + + + + + -+ | AST | 22Comment: Testing | 10 - 45 U/L | EXTERNAL | | | | performed at [facility];888 | | LAB | | | | [address];[place] | | | | | | [address] | | | | + + + + + -+ | ALT | 37Comment: Testing | 10 - 65 U/L | EXTERNAL | | | | performed at [facility];[address] | | LAB | | | | [address];[place] | | | | | | [address] | | | | + + + [...] | | | | | | at [facility];[address];[place] [address] | | | | + + + + + -+ | CK, Total | 103Comment: Testing | 55 - 400 U/L | EXTERNAL | | | | performed at [facility];[address] | | LAB | | | | [address];[place] | | | | | | [address] | | | | + + + [...] | | | | | performed at [facility];[address] | | | | | | [address];[place] | | | | | | [address] | | | | + + + + + -+ | aPTT, | 26Comment: Testing | 23 - 32 seconds | EXTERNAL | | | Patient | performed at [facility];[address] | | LAB | | | | [address];[place] | | | | | | [address] | | | | + + + + + -+ | CK-MB | 2.9Comment: Testing | 0.5 - 3.6 ng/mL | EXTERNAL | | | | performed at [facility];[address] | | LAB | | | | [address];[place] | | | | | | [address] | | | | + + + [...] EXTERNAL | | | | performed at [facility];888 | uIU/mL | LAB | | | | [address];[place] | | | | | | [address] | | | | + + + [...] EXTERNAL | | | | performed at [facility];[address] | | LAB | | | | [address];[place], [place] | | | | | | [address] | | | | + + + [...] EXTERNAL | | | | performed at [facility] | | LAB | | | | [address];[place] | | | | | | [address] | | | | + + + [...] (500), | | | | | | graphic editor Michelle Butcher | | | | | | (29) on 11/04/2014 | | | | | | 6:28:13 AM | | | | + + + + + + + + | Specimen | + + | | + + + + + | Narrative | Performed At | + + + | Historically converted procedure from [facility] Epic environment | EXTERNAL LAB | + [...]
--- OUTSIDE RECORDS SUMMARY | ~2019-11-16 | XMS | Encounter Summary ---
Demographics + + + | Address | [address] | | | [place] [address] | + + + | Home Phone [...] Providers + +------+ + | Care Slitter Helper Name | Role | Phone | + +------+ + | Kirk French MD | PCP | | + +------+ + Encounter Details +--------+ + + + + | Date | Type | Department | Care Team | Description | +--------+ + + + + | 07/21/ | Hospital | [facility] | Daljit Singletary, | Palpitations; | | 2018 | Encounter | [facility] | MD [address] | Presence of | | | | MEDICINE [address] [place], | permanent cardiac | | | | [place], | [place] [address] | pacemaker; | | | | [address] | [phone] | Sinoatrial node | | | | [phone] | | dysfunction (HCC) | +--------+ + [...] + + +---------+ + + | [place]-[employer] Fatty | CAPS, one capsule by | [...] Dx); | | | | | [place] [address] | Presence of | | | | | [phone] | permanent cardiac | | | | [...] | 2018 | Monitor | | [address] | Interrogation | | | | | [place], | (Primary Dx); | | | | | [place] [address] | Presence of | | | | | [phone] | permanent cardiac | | | | [...] [address] | | | | | | [place], | | | | | | [place] [address] | | | | | | [phone] | | | | | | | [...]
--- OUTSIDE RECORDS SUMMARY | ~2019-11-16 | XMS | Encounter Summary ---
Demographics + + + | Address | [address] | | | [place] [address] | + + + | Home Phone [...] Providers + +------+ + | Care Process Tech Name | Role | Phone | [...] visit | CARDIOLOGY [address] | [address] | reprogramming/check | | | | [place], | [place], | DO NOT DELETE | | | | [place] [address] | [place] [address] | (Primary Dx); | | | | [phone] | [phone] | Sinoatrial node | | | | [...] | Monitor | | MD [address] | Interrogation | | | | | [place], | (Primary Dx); | | | | | [place] [address] | Presence of | | | | | [phone] | permanent cardiac | | | | [...] | Monitor | | MD [address] | Interrogation | | | | | [place], | (Primary Dx); | | | | | [place] [address] | Presence of | | | | | [phone] | permanent cardiac | | | | [...] W | | | | | | [place], | | | | | | [place] [address] | | | | | | [phone] | | | | | | | [...]
--- OUTSIDE RECORDS SUMMARY | ~2019-11-16 | XMS | Encounter Summary ---
Demographics + + + | Address | [address] | | | [place] [address] | + + + | Home Phone [...] Providers + +------+ + | Care Infant Babysitter Name | Role | Phone | [...] | 10/26/ | Refill | [facility] | Kirk French | Medication Refill | | 2019 | | GASTROENTEROLOGY | MD Brea [address] | | | | | [address] | [address] | | | | | [address] [place], [place] | [place] [address] | | | | | [address] | [phone] | | | | | [phone] | | | +--------+--------+ + + + [...] Dx); | | | | | [place] [address] | Presence of | | | | | [phone] | permanent cardiac | | | | [...] Dx); | | | | | [place] [address] | Presence of | | | | | [phone] | permanent cardiac | | | | [...] | | | | | | [place], | | | | | | [place] [address] | | | | | | [phone] | | | | | | | | +--------+ + + + + documented as of this encounter Visit Diagnoses Not on filedocumented in this encounter"
--- OUTSIDE RECORDS SUMMARY | ~2019-11-16 | XMS | Encounter Summary ---
Demographics + + + | Address | [address] [place] [address] | | | [place] [address] | + + + | Home Phone [...] [place] | | | | | [address] | | + + + + + [...] at [facility] [address] | [address] | | | | | [address] | [place], [place] | | | | | Mailcode: [place] | [address] | | | | | [facility] and | [phone] | | | | | [address] [address] | | | | | | [place], [place] | | | | | | [address] | | | | | | [phone] | | | +--------+ + + + [...]
--- OUTSIDE RECORDS SUMMARY | ~2019-11-16 | XMS | Encounter Summary ---
Demographics + + + | Address | [address] | | | [place] [address] | + + + | Home Phone [...] Providers + +------+ + | Care Ceramics Machine Operator Name | Role | Phone [...] + + | 12/14/ | Telephone | [facility] | Emmanuel Daniel MD | Follow-up, Office | | 2019 | | GASTROENTEROLOGY | [address], [place] | Visit (wants to | | | | [address] [place] | [address] [place] | cancel his office | | | | [address] [place] | [address] | appointment today) | | | | [address] | | | | | | [phone] | | | +--------+ + + + [...] Dx); | | | | | [place] [address] | Presence of | | | | | [phone] | permanent cardiac | | | | [...] | 2018 | Monitor | | [address] | Interrogation | | | | | [place], | (Primary Dx); | | | | | [place] [address] | Presence of | | | | | [phone] | permanent cardiac | | | | [...] | | | | | | [place], | | | | | | [place] [address] | | | | | | [phone] | | | | | | | | +--------+ + + + + documented as of this encounter Visit Diagnoses Not on filedocumented in this encounter"
--- OUTSIDE RECORDS SUMMARY | ~2019-11-16 | XMS | Encounter Summary ---
Demographics + + + | Address | [address] | | | [place] [address] | + + + | Home Phone [...] Providers + +------+ + | Care Forming Process Worker Name | Role | Phone [...] + | 01/03/ | Office | [facility] | Silvia, | CAD (coronary artery | | 2012 | Visit | CARDIOLOGY [address] | Janeen, EDUCATIONAL THERAPIST [address] | disease) (Primary | | | | [place] [employer], | [place], | Dx); Bradycardia; | | | | [place] [address] | [place] [address] | HTN (hypertension); | | | | [phone] | [phone] | Lightheadedness | | | | | [...] tablet Take 1,000 mg by mouth Daily. [place]-3 Fatty Acids (SALMON OIL-1000 PO) CAPS, one [...] himself t o the emergency department at [facility] in [place], [place]. EKG showed normal s inus rhythm [...] Refer patient to an electrophysiology specialist in [place] for further evaluation for P VC's ablation. I have given verbal instructions and written material for patient to read mo re about the procedure. 2. Check blood pressure and pulse twice daily for two weeks and return the log to our offic e. 3. Followup appointment after patient's appointment with customer engagement specialist/ablation. IJaneen ARNP, saw this patient under the direct supervision of Daljit Singletary MD Portions of this report were transcribed using voice recognition software. Every effort wa s made to ensure accuracy; however, inadvertent computerized forestry adviser errors may be pre sent. documented in [...] Interrogation | | | | | [employer], | (Primary Dx); | | | | | [place] [address] | Presence of | | | | | [phone] | permanent cardiac | | | | [...] | Monitor | | MD Chiquis Antony [place] | Interrogation | | | | | [employer], | (Primary Dx); | | | | | [place] [address] | Presence of | | | | | [phone] | permanent cardiac | | | | [...] | | | | | | [place], | | | | | | [place] [address] | | | | | | [phone] | | | | | | | | +--------+ + + + + documented as of this encounter Visit Diagnoses + + | Diagnosis | + + | CAD (coronary artery disease) - Primary Coronary atherosclerosis of unspecified type | | of vessel, seneca or graft | + + | Bradycardia Other specified cardiac dysrhythmias | + + | HTN (hypertension) Unspecified essential hypertension | + + | Lightheadedness Dizziness and giddiness | + + documented in this encounter
--- OUTSIDE RECORDS SUMMARY | ~2019-11-16 | XMS | Encounter Summary ---
Demographics + + + | Address | [address] | | | [place] [address] | + + + | Home Phone [...] Providers + +------+ + | Care Patient Safety Coordinator Name | Role | Phone | + +------+ + | Kirk French MD | PCP | | + +------+ + Encounter Details +--------+ + + + + | Date | Type | Department | Care Team | Description | +--------+ + + + + | 01/25/ | Emergency | [facility] | Donald Callahan, | Strain of lumbar | | 2016 | | [facility] | Russ, DO [address] | paraspinal muscle, | | | | [facility] | [address] | initial encounter; | | | | [address] | [place], [place] | Left hip pain | | | | [place], [place] | [address] | | | | | [address] | | | | | | [phone] | | | +--------+ + + + [...] + + + +---------+ + + | [place]-3 Fatty | CAPS, one capsule by [...] Dx); | | | | | [place] [address] | Presence of | | | | | [phone] | permanent cardiac | | | | [...] | 2018 | Monitor | | [address] | Interrogation | | | | | [place], | (Primary Dx); | | | | | [place] [address] | Presence of | | | | | [phone] | permanent cardiac | | | | [...] W | | | | | | [place], | | | | | | [place] [address] | | | | | | [phone] | | | | | | | [...] Conversion - 07/06/2019 12:12 AM PDT PINA [id number] years MaleXR | | LUMBAR SPINE LIMITED [...]
--- OUTSIDE RECORDS SUMMARY | ~2019-11-16 | XMS | Encounter Summary ---
Demographics + + + | Address | [address] | | | [place] [address] | + + + | Home Phone [...] Providers + +------+ + | Care Casting Agent Name | Role | Phone | + +------+ + | Kirk French MD | PCP | | + +------+ + Encounter Details +--------+---------+ + + + | Date | Type | Department | Care Team | Description | +--------+---------+ + + + | 09/26/ | Office | [facility] | Kirk French | Weight loss (Primary | | 2018 | Visit | [facility] | MD Brea [address] | Dx); Bipolar | | | | [facility] [address] | affective disorder, | | | | [address] | [place] [address] | remission status | | | | [place], [place] | [phone] | unspecified (HCC); | | | | [address] | | Mixed anxiety | | | | [phone] | | depressive disorder; | | | [...] Location: [facility] MAIN OR VASECTOMY Social History Socioeconomic History [...] ONE TABLET UNDER THE TONGUE EVERY 5 IA NUTES NEEDED FOR CHEST PAIN 250 tablet 0 [place]-3 Fatty Acids (SALMON OIL-1000 PO) CAPS, one [...] PLT 169 06/02/2019 No results found for: [id number] No results found for: FOLATE No results [...] Co multiple ER visits Going again to [facility] tomorrow Already followed by [...] dollars a month. We will defer to [facility], perhaps to have some [...] Interrogation | | | | | [place], | (Primary Dx); | | | | | [place] [address] | Presence of | | | | | [phone] | permanent cardiac | | | | [...] Interrogation | | | | | [place], | (Primary Dx); | | | | | [place] [address] | Presence of | | | | | [phone] | permanent cardiac | | | | [...] | | | | | | [place] [address] | | | | | | [phone] | | | | | | | [...]
--- OUTSIDE RECORDS SUMMARY | ~2019-11-16 | XMS | Encounter Summary ---
Demographics + + + | Address | [address] | | | [place] [address] | + + + | Home Phone [...] | | CARDIOLOGY [address] | Janeen, CUPOLA LINER HELPER [address] | reading) | | | | [place], | [place], | | | | | [place] [address] | [place] [address] | | | | | [phone] | | | | | | | [...] | | | | | [place], | (Primary Dx); | | | | | [place] [address] | Presence of | | | | | [phone] | permanent cardiac | | | | [...] | Monitor | | [address] [place] | Interrogation | | | | | [place], | (Primary Dx); | | | | | [place] [address] | Presence of | | | | | [phone] | permanent cardiac | | | | [...] | | | | | | [place] [address] | | | | | | [phone] | | | | | | | | +--------+ + + + + documented as of this encounter Visit Diagnoses Not on filedocumented in this encounter"
--- OUTSIDE RECORDS SUMMARY | ~2019-11-16 | XMS | Encounter Summary ---
Demographics + + + | Address | [address] | | | [place] [address] | + + + | Home Phone [...] Providers + +------+ + | Care Rn Case Management Name | Role | Phone | [...] | MED CTR EXTER[facility] | MD [address] | | | | | IMAGING | Jay THORPE | | | | | [phone] | [place] [address] | | +--------+ + + + + [...] Interrogation | | | | | [place], | (Primary Dx); | | | | | [place] [address] | Presence of | | | | | [phone] | permanent cardiac | | | | [...] Interrogation | | | | | [place], | (Primary Dx); | | | | | [place] [address] | Presence of | | | | | [phone] | permanent cardiac | | | | | | pacemaker; | | | | | | Sinoatrial node | | | | | | dysfunction (HCC) | | | | | | with symptomatic | | | | | | bradycardia | +--------+ + + + + | 01/01/ | Office | Cardiology | [place], | | | 2019 | Visit | | [address] | | | | | | [place], | | | | | | [place] [address] | | | | | | [phone] | | | | | | | [...] for comparison only - no result from [facility]. | | + + + + +---------+ + + | Performing | Address | City/State/Zipcode | Phone Number | | Organization | | | | + +---------+ + + | [facility] | | | | + +---------+ + + documented in this encounter Visit Diagnoses Not on filedocumented in this encounter"
--- OUTSIDE RECORDS SUMMARY | ~2019-11-16 | XMS | Encounter Summary ---
Demographics + + + | Address | [address] | | | [place] [address] | + + + | Home Phone [...] Providers + +------+ + | Care Waste Water Or Water Plant Operator Name | Role | Phone [...] | CARDIOLOGY [address] | MD [address] [place] | | | | | [place], | [place], | | | | | [place] [address] | [place] [address] | | | | | [phone] | [phone] | | | | | | | [...] | 11/20/ | Implant | Cardiology | AnshuDalijt carmona, | Remote Device | | 2018 | Monitor | | MD [address] | Interrogation | | | | | [place], | (Primary Dx); | | | | | [place] [address] | Presence of | | | | | [phone] | permanent cardiac | | | | [...] | 2018 | Monitor | | [address] [place] | Interrogation | | | | | [place], | (Primary Dx); | | | | | [place] [address] | Presence of | | | | | [phone] | permanent cardiac | | | | [...] W | | | | | | [place], | | | | | | [place] [address] | | | | | | [phone] | | | | | | | | +--------+ + + + + documented as of this encounter Visit Diagnoses Not on filedocumented in this encounter"
--- OUTSIDE RECORDS SUMMARY | ~2019-11-16 | XMS | Encounter Summary ---
Demographics + + + | Address | [address] | | | [place] [address] | + + + | Home Phone [...] | | | [place] | [place] [address] | | | | | | [address] | Phone: | | | | | | Phone: | [phone] | | | | | | [phone] | Fax: | | | | | | Fax: | [phone] | | | | | | [phone] | | +--------+ + + + + [...] | diurnal enuresis | | | | [place], [place] | [place], [place] | (Primary Dx); BPH | | | | [address] | [address] | with | | | | [phone] | | obstruction/lower | | | | [...] Haleigh rodarte states that the surgeon in [place] who performed his neck surgery is no longer practicing a nd was apparently disciplined and had his license revoked by the [facility]. He has ed marijuana for his [...] APNEA CONDS CLASSIFIED ELSEWHERE (12/15/2010); Ulcerative colitis ([facility]); Ches t pain; SINUS BRADYCARDIA; HEPATITIS B; PUD; FATTY LIVER DISEASE; SUBSTANCE ABUSE, MULTIPLE; Preventative health care (06/26/2013); Bladder troubles; Tuberculosis; Anginal pain ([facility]); St roke ([facility]); Prostate troubles; and Neurological disorder. Past [...] needed for Chest pain. 25 tablet 12 [place]-3 Fatty Acids (SALMON OIL-1000 PO) CAPS, [...] Date/Time: 04/22/2012 16:56 Transcribed Date/Time: 04/22/2012 17:32 Spirits Model: <Electronically Signed by Jama Solis MD> 04/23/12 [...] Date/Time: 04/23/2012 10:54 Transcribed Date/Time: 04/23/2012 11:06 Spirits Model: <Electronically Signed by Jama Solis MD> 04/24/12 9096 IMPRESSION: 1. Nocturnal and diurnal enuresis. I [...] bladder, still believe that the recommendations from [facility] neurosurgeon, Dr. Demarco, on 03/13/2014 would [...] have not thoroughly proofread this note, and warehouse shipping associate erro rs may occur. CC: Kirk French [...] Interrogation | | | | | [place], | (Primary Dx); | | | | | [place] [address] | Presence of | | | | | [phone] | permanent cardiac | | | | [...] Interrogation | | | | | [place], | (Primary Dx); | | | | | [place] [address] | Presence of | | | | | [phone] | permanent cardiac | | | | [...] | | | | | | [place], | | | | | | [place] [address] | | | | | | [phone] | | | | | | | [...] 1.001 - 1.030 | | | | [place], | | | | | | [facility], [...]
--- OUTSIDE RECORDS SUMMARY | ~2019-11-16 | XMS | Encounter Summary ---
Demographics + + + | Address | [address] | | | [place] [address] | + + + | Home Phone [...] Providers + +------+ + | Care Financial Business Analyst Name | Role | Phone [...] | | 2013 - | Encounter | [facility] | [address] | Pacemaker; | | | | CLINICAL DECISION | [place] [address] | Mild dehydration | | 02/28/ | | [address] [facility] | [phone] | | | 2013 | | [place], [place] | | | | | | [address] | | | | | | [phone] | | | +--------+ + + + [...] 2252 Date of Service: 02/28/141044 Status: Addendum Head Housekeeper: Dev Montano MD (Physician) Related Notes: Original Note by Dev Montano MD (Physician) filed at 02/28/14 1107 Patient ID: Pina Gay [id number] y.o. 1960 Admit date: 02/27/2014 Discharge [...] - 99 mg/dL Final Testing performed at [address] [address] BUN Date Value Range Status 02/28/2014 15 8 - 25 mg/dL Final Testing performed at [address] [address] CREATININE Date Value Range Status 02/28/2014 0.74 0.70 - 1.30 mg/dL Final Testing performed at [address] [address] BUN/CREAT Date Value Range Status 02/28/2014 20 Final Testing performed at [address] [address] TOTAL PROTEIN Date Value Range Status 02/28/2014 6.1* 6.3 - 8.2 g/dL Final Testing performed at [address] [address] GLOBULIN Date Value Range Status 02/28/2014 2.1 1.3 - 4.9 g/dL Final Testing performed at [address] [address] TBIL Date Value Range Status 02/28/2014 1.4 0.1 - 1.5 mg/dL Final Testing performed at [address] [address] ALT Date Value Range Status 02/28/2014 27 10 - 65 U/L Final Testing performed at [address] [address] AST Date Value Range Status 02/28/2014 31 10 - 45 U/L Final Testing performed at [address] [address] SODIUM Date Value Range Status 02/28/2014 138 135 - 143 mmol/L Final Testing performed at [facility], [address] [place] [address] POTASSIUM Date Value Range Status 02/28/2014 3.4* 3.5 - 4.9 mmol/L Final Testing performed at [facility], [address] [place] [address] CHLORIDE Date Value Range Status 02/28/2014 108 99 - 109 mmol/L Final Testing performed at [address] [address] CO2 Date Value Range Status 02/28/2014 21* 23 - 32 mmol/L Final Testing performed at [facility], [address] [place] [address] ANION GAP AGAP Date Value Range Status 02/28/2014 12 5 - 20 mmol/L Final Testing performed at [facility], [address] [place] [address] Xr Chest Pa And Lateral 02/27/2014 PINA [...] 3-D reconstructi ons were performed using the Reasult 3-D software and sent to PACS. Oral Contrast: None I V contrast: 100 mL IsoVue 370 COMPARISON: None. FINDINGS: CHEST: The social media community manager view shows a p acemaker via [...] pacemaker, who [facility] complaining of chest pain [...] catheterization recently done by Dr. Singletary in [place] in December 2013 at [facility] which showed minimal occlusive disease. One artery was 25% and another was 15%, per patient. I requested official cardiac catheterization report from [place] and still waiting for it to come. [...] are the prescriptions that you need to berry picker. You may get these medications from any pharmacy. amLODIPine 5 MG tablet pantoprazole 40 MG tablet Activity: activity as tolerated Diet: cardiac diet Wound Care: not applicable There are no Patient Instructions on file for this visit. Per Pt None Chaka Ortiz MD [address] [facility] [id number] In 1 week Ariel Pulido MD [address] [facility] [id number] In 1 week Daljit Singletary MD [address] [facility] [address] [facility] [address] In 1 week Signed: DEV MONTANO 02/28/2014 10:45 AM Addendum:ADDENDUM I just received a cardiac catheterization report from [facility], [place], which was done on December 25, 2013. [...] + + +---------+ + + | [place]-3 Fatty | CAPS, one capsule by | [...] 02/28/141211 Date of Service: 02/28/141210 Status: Signed Head Housekeeper: Bijal Sosa RN (Registered Nurse) Discharge instructions [...] 02/28/1411 Date of Service: 02/28/1411 Status: Signed Head Housekeeper: Mary Wetzel RPH (Pharmacist) Clinical Pharmacy Note: [...] Dx); | | | | | [place] [address] | Presence of | | | | | [phone] | permanent cardiac | | | | [...] Dx); | | | | | [place] [address] | Presence of | | | | | [phone] | permanent cardiac | | | | [...] | | | | | | [place], | | | | | | [place] [address] | | | | | | [phone] | | | | | | | [...] EXTERNAL | | | | performed at [facility];[address] | | LAB | | | | [address];[place], [place] | | | | | | [address] | | | | + + + [...] | | | | | | ACUTE [place] Testing | | | | | | performed at [facility];[address] | | | | | | [facility];[place], [place] | | | | | | [address] | | | | + + + [...] | | | | | [place] [address] | | | | + + + + + + | RED CELL | 4.68Comment: Testing | 4.20 - 5.70 | EXTERNAL | | | COUNT | performed at [facility], [address] | M/uL | LAB | | | | [address], | | | | | | [place] [address] | | | | + + + + + + | Hgb | 15.3Comment: Testing | 13.2 - 17.0 | EXTERNAL | | | | performed at [facility], [address] | g/dL | LAB | | | | [address], | | | | | | [place] [address] | | | | + + + + + + | Hematocrit, | 44.2Comment: Testing | 39.0 - 50.0 % | EXTERNAL | | | POC | performed at [facility], [address] | | LAB | | | | [address], | | | | | | [place] [address] | | | | + + + + + + | MCV | 94.5Comment: Testing | 80.0 - 100.0 fl | EXTERNAL | | | | performed at [facility], [address] | | LAB | | | | [address], | | | | | | [place] [address] | | | | + + + + + + | MCH | 32.6Comment: Testing | 27.0 - 34.0 pg | EXTERNAL | | | | performed at [facility], [address] | | LAB | | | | [address], | | | | | | [place] [address] | | | | + + + + + + | MCHC | 34.5Comment: Testing | 32.0 - 35.5 | EXTERNAL | | | | performed at [facility], [address] | g/dL | LAB | | | | [address], | | | | | | [place] [address] | | | | + + + + + + | RDW-CV | 45.5Comment: Testing | 37 - 53 fl | EXTERNAL | | | | performed at [facility], [address] | | LAB | | | | [address], | | | | | | [place] [address] | | | | + + + + + + | Platelet | 156Comment: Testing | 150 - 400 K/uL | EXTERNAL | | | Count | performed at [facility], [address] | | LAB | | | Plasma | [address], | | | | | | [place] [address] | | | | + + + + + + | MPV | 8.8Comment: Testing | fl | EXTERNAL | | | | performed at [facility], [address] | | LAB | | | | [address], | | | | | | [place] [address] | | | | + + + + + + | Differentia | AUTOMATEDComment: | | EXTERNAL | | | l Type | Testing performed at | | LAB | | | | [facility], [address] | | | | | | [place] | | | | | | [address] | | | | + + + + + + | % Segmented | 57.7Comment: Testing | % | EXTERNAL | | | | performed at [facility], [address] | | LAB | | | Neutrophils | [address], | | | | | | [place] [address] | | | | + + + + + + | % | 31.8Comment: Testing | % | EXTERNAL | | | Lymphocytes | performed at [facility], [address] | | LAB | | | | [address], | | | | | | [place] [address] | | | | + + + + + + | % Monocytes | 9.2Comment: Testing | % | EXTERNAL | | | | performed at [facility], [address] | | LAB | | | | [address], | | | | | | [place] [address] | | | | + + + + + + | % | 0.9Comment: Testing | % | EXTERNAL | | | Eosinophils | performed at [facility], [address] | | LAB | | | | [address], | | | | | | [place] [address] | | | | + + + + + + | % Basophils | 0.4Comment: Testing | % | EXTERNAL | | | | performed at [facility], [address] | | LAB | | | | [address], | | | | | | [place], [place] [address] | | | | + + + + + + | Absolute | 3.9Comment: Testing | 1.9 - 7.4 K/uL | EXTERNAL | | | Segmented | performed at [facility], [address] | | LAB | | | Neutrophils | [address], | | | | | | [place] [address] | | | | + + + + + + | Absolute | 2.1Comment: Testing | 1.0 - 3.9 K/uL | EXTERNAL | | | Lymphocytes | performed at [facility], [address] | | LAB | | | | [address], | | | | | | [place] [address] | | | | + + + + + + | Absolute | 0.6Comment: Testing | 0 - 0.8 K/uL | EXTERNAL | | | Monocytes | performed at [facility], [address] | | LAB | | | | [address], | | | | | | [place] [address] | | | | + + + + + + | Absolute | 0.1Comment: Testing | 0 - 0.5 K/uL | EXTERNAL | | | Eosinophils | performed at [facility], [address] | | LAB | | | | [address], | | | | | | [place] [address] | | | | + + + + + + | Absolute | 0.0Comment: Testing | 0 - 0.1 K/uL | EXTERNAL | | | Basophils | performed at [facility], [address] | | LAB | | | | [address], | | | | | | [place] [address] | | | | + + [...] | | | | | [place] [address] | | | | + + + [...] EXTERNAL | | | | performed at [facility], [address] | | LAB | | | | [address], | | | | | | [place] [address] | | | | + + + [...] EXTERNAL | | | | performed at [facility];[address] | | LAB | | | | [address];[place], [place] | | | | | | [address] | | | | + + + [...] | | | | | [place] [address] | | | | + + + + + + | Triglycerid | 37Comment: Testing | mg/dL | EXTERNAL | | | es | performed at [facility], [address] | | LAB | | | | [address], | | | | | | [place] [address] | | | | + + + + + + | HDL | 35 (L)Comment: Testing | mg/dL | EXTERNAL | | | | performed at [facility], [address] | | LAB | | | | [address], | | | | | | [place] [address] | | | | + + + + + + | LDL | 67Comment: Testing | mg/dL | EXTERNAL | | | Cholesterol | performed at [facility], [address] | | LAB | | | , [address], | | | | | Calculated, | [place] [address] | | | | | External | [...] | | | | | [place] [address] | | | | + + + + + + | K | 3.4 (L)Comment: Testing | 3.5 - 4.9 | EXTERNAL | | | | performed at [facility], [address] | mmol/L | LAB | | | | [address], | | | | | | [place] [address] | | | | + + + + + + | Cl | 108Comment: Testing | 99 - 109 mmol/L | EXTERNAL | | | | performed at [facility], [address] | | LAB | | | | [address], | | | | | | [place] [address] | | | | + + + [...] | | | | | [place] [address] | | | | + + + + + + | Glucose, | 107 (H)Comment: Testing | 65 - 99 mg/dL | EXTERNAL | | | Fasting | performed at [facility], [address] | | LAB | | | | [address], | | | | | | [place] [address] | | | | + + + + + + | BUN | 15Comment: Testing | 8 - 25 mg/dL | EXTERNAL | | | | performed at [facility], [address] | | LAB | | | | [address], | | | | | | [place] [address] | | | | + + + + + + | Creatinine | 0.74Comment: Testing | 0.70 - 1.30 | EXTERNAL | | | | performed at [facility], [address] | mg/dL | LAB | | | | [address], | | | | | | [place] [address] | | | | + + + + + + | BUN/Creatin | 20Comment: Testing | | EXTERNAL | | | ine Ratio | performed at [facility], [address] | | LAB | | | | [address], | | | | | | [place] [address] | | | | + + + + + + | Calcium | 8.9Comment: Testing | 8.5 - 10.2 | EXTERNAL | | | | performed at [facility], [address] | mg/dL | LAB | | | | [address], | | | | | | [place] [address] | | | | + + + + + + | Protein, | 6.1 (L)Comment: Testing | 6.3 - 8.2 g/dL | EXTERNAL | | | Total | performed at [facility], [address] | | LAB | | | | [address], | | | | | | [place] [address] | | | | + + + + + + | Albumin | 4.0Comment: Testing | 3.6 - 5.0 g/dL | EXTERNAL | | | | performed at [facility], [address] | | LAB | | | | [address], | | | | | | [place] [address] | | | | + + + + + + | Globulin | 2.1Comment: Testing | 1.3 - 4.9 g/dL | EXTERNAL | | | | performed at [facility], [address] | | LAB | | | | [address], | | | | | | [place] [address] | | | | + + + + + + | A/G Ratio | 1.9Comment: Testing | 1.0 - 2.4 | EXTERNAL | | | | performed at [facility], [address] | | LAB | | | | [address], | | | | | | [place] [address] | | | | + + + + + + | Bilirubin | 1.4Comment: Testing | 0.1 - 1.5 mg/dL | EXTERNAL | | | Total | performed at [facility], [address] | | LAB | | | | [address], | | | | | | [place] [address] | | | | + + + + + + | ALP, | 46Comment: Testing | 35 - 115 U/L | EXTERNAL | | | External | performed at [facility], [address] | | LAB | | | | [address], | | | | | | [place] [address] | | | | + + + + + + | AST | 31Comment: Testing | 10 - 45 U/L | EXTERNAL | | | | performed at [facility], [address] | | LAB | | | | [address], | | | | | | [place] [address] | | | | + + + + + + | ALT | 27Comment: Testing | 10 - 65 U/L | EXTERNAL | | | | performed at [facility], [address] | | LAB | | | | [address], | | | | | | [place] [address] | | | | + + + [...] | | | | | | at [facility], [address] | | | | | | [address], | | | | | | [place] [address] | | | | + + + [...] + + | Historically converted procedure from [facility] environment | EXTERNAL [...] EXTERNAL | | | | performed at [facility];[address] | | LAB | | | | [address];[place], [place] | | | | | | [address] | | | | + + + [...] | | | | | | ACUTE [place] Testing | | | | | | performed at [facility];[address] | | | | | | [address] [facility];[place], [place] | | | | | | [address] | | | | + + + [...] EXTERNAL | | | | performed at [facility];[address] | | LAB | | | | [address] [facility];[place], [place] | | | | | | [address] | | | | + + + [...] were | | | performed using the Reasult 3-D software and sent to PACS. Oral | | | Contrast: None IV contrast: 100 mL IsoVue 370 COMPARISON: None. | | | FINDINGS: CHEST: The social media community manager view shows a pacemaker via left [...] reconstructions were performed | | using the Reasult 3-D software and sent to PACS. Oral Contrast: NoneIV contrast: 100 | | mL IsoVue 370 COMPARISON:None. FINDINGS: CHEST: The social media community manager view shows a pacemaker via | [...] Rad Conversion - 07/07/2019 10:30 PM [facility] PINA LEVINE CHEST 2 VIEW FRONTAL | [...] EXTERNAL | | | | performed at [facility];[address] | | LAB | | | | [address];[place] | | | | | | [address] | | | | + + + + + -+ | RED CELL | 5.19Comment: Testing | 4.20 - 5.70 | EXTERNAL | | | COUNT | performed at [facility];[address] | M/uL | LAB | | | | [address];[place] | | | | | | [address] | | | | + + + + + -+ | Hgb | 16.8Comment: Testing | 13.2 - 17.0 | EXTERNAL | | | | performed at [facility];[address] | g/dL | LAB | | | [address];[place] | | | | | | [address] | | | | + + + + + -+ | Hematocrit, | 49.5Comment: Testing | 39.0 - 50.0 % | EXTERNAL | | | POC | performed at [facility];[address] | | LAB | | | | [address];[place] | | | | | | [address] | | | | + + + + + -+ | MCV | 95.4Comment: Testing | 80.0 - 100.0 fl | EXTERNAL | | | | performed at [facility];[address] | | LAB | | | [address];[place] | | | | | | [address] | | | | + + + + + -+ | MCH | 32.4Comment: Testing | 27.0 - 34.0 pg | EXTERNAL | | | | performed at [facility];[address] | | LAB | | | | [address];[place] | | | | | | [address] | | | | + + + + + -+ | MCHC | 34.0Comment: Testing | 32.0 - 35.5 | EXTERNAL | | | | performed at [facility];[address] | g/dL | LAB | | | | [address];[place] | | | | | | [address] | | | | + + + + + -+ | RDW-CV | 46.8Comment: Testing | 37 - 53 fl | EXTERNAL | | | | performed at [facility];[address] | | LAB | | | | [address];[place] | | | | | | [address] | | | | + + + + + -+ | Platelet | 179Comment: Testing | 150 - 400 K/uL | EXTERNAL | | | Count | performed at [facility];[address] | | LAB | | | Plasma | [address];[place] | | | | | | [address] | | | | + + + + + -+ | MPV | 8.6Comment: Testing | fl | EXTERNAL | | | | performed at [facility];[address] | | LAB | | | | [address];[place] | | | | | | [address] | | | | + + + + + -+ | Differentia | AUTOMATEDComment: | | EXTERNAL | | | l Type | Testing performed at | | LAB | | | | [facility];[address];[place] [address] | | | | + + + + + -+ | % Segmented | 62.4Comment: Testing | % | EXTERNAL | | | | performed at [facility];[address] | | LAB | | | Neutrophils | [address];[place] | | | | | | [address] | | | | + + + + + -+ | % | 26.3Comment: Testing | % | EXTERNAL | | | Lymphocytes | performed at [facility];[address] | | LAB | | | | [address];[place] | | | | | | [address] | | | | + + + + + -+ | % Monocytes | 10.3Comment: Testing | % | EXTERNAL | | | | performed at [facility];[address] | | LAB | | | | [address];[place] | | | | | | [address] | | | | + + + + + -+ | % | 0.5Comment: Testing | % | EXTERNAL | | | Eosinophils | performed at [facility];[address] | | LAB | | | | [address];[place] | | | | | | [address] | | | | + + + + + -+ | % Basophils | 0.5Comment: Testing | % | EXTERNAL | | | | performed at [facility];[address] | | LAB | | | | [address];[place] | | | | | | [address] | | | | + + + + + -+ | Absolute | 6.3Comment: Testing | 1.9 - 7.4 K/uL | EXTERNAL | | | Segmented | performed at [facility];[address] | | LAB | | | Neutrophils | [address];[place] | | | | | | [address] | | | | + + + + + -+ | Absolute | 2.7Comment: Testing | 1.0 - 3.9 K/uL | EXTERNAL | | | Lymphocytes | performed at [facility];[address] | | LAB | | | | [address];[place] | | | | | | [address] | | | | + + + + + -+ | Absolute | 1.0 (H)Comment: Testing | 0 - 0.8 K/uL | EXTERNAL | | | Monocytes | performed at [facility];[address] | | LAB | | | | [address];[place] | | | | | | [address] | | | | + + + + + -+ | Absolute | 0.0Comment: Testing | 0 - 0.5 K/uL | EXTERNAL | | | Eosinophils | performed at [facility];[address] | | LAB | | | | [address];[place] | | | | | | [address] | | | | + + + + + -+ | Absolute | 0.1Comment: Testing | 0 - 0.1 K/uL | EXTERNAL | | | Basophils | performed at [facility];[address] | | LAB | | | | [address];[place] | | | | | | [address] | | | | + + + + + -+ | Na | 139Comment: Testing | 135 - 143 | EXTERNAL | | | | performed at [facility];[address] | mmol/L | LAB | | | | [address];[place] | | | | | | [address] | | | | + + + + + -+ | K | 3.4 (L)Comment: Testing | 3.5 - 4.9 | EXTERNAL | | | | performed at [facility];[address] | mmol/L | LAB | | | | [address];[place] | | | | | | [address] | | | | + + + + + -+ | Cl | 108Comment: Testing | 99 - 109 mmol/L | EXTERNAL | | | | performed at [facility];[address] | | LAB | | | | [address];[place] | | | | | | [address] | | | | + + + + + -+ | CO2 | 21 (L)Comment: Testing | 23 - 32 mmol/L | EXTERNAL | | | | performed at [facility];[address] | | LAB | | | | [address];[place] | | | | | | [address] | | | | + + + + + -+ | Anion Gap | 14Comment: Testing | 5 - 20 mmol/L | EXTERNAL | | | | performed at [facility];[address] | | LAB | | | | [address];[place] | | | | | | [address] | | | | + + + + + -+ | Glucose, | 124 (H)Comment: Testing | 65 - 99 mg/dL | EXTERNAL | | | Fasting | performed at [facility];[address] | | LAB | | | | [address];[place] | | | | | | [address] | | | | + + + + + -+ | BUN | 20Comment: Testing | 8 - 25 mg/dL | EXTERNAL | | | | performed at [facility];[address] | | LAB | | | | [address];[place] | | | | | | [address] | | | | + + + + + -+ | Creatinine | 0.97Comment: Testing | 0.70 - 1.30 | EXTERNAL | | | | performed at [facility];[address] | mg/dL | LAB | | | | [address];[place] | | | | | | [address] | | | | + + + + + -+ | BUN/Creatin | 21Comment: Testing | | EXTERNAL | | | ine Ratio | performed at [facility];[address] | | LAB | | | | [address];[place] | | | | | | [address] | | | | + + + + + -+ | Calcium | 8.7Comment: Testing | 8.5 - 10.2 | EXTERNAL | | | | performed at [facility];[address] | mg/dL | LAB | | | | [address];[place] | | | | | | [address] | | | | + + + + + -+ | Protein, | 7.6Comment: Testing | 6.3 - 8.2 g/dL | EXTERNAL | | | Total | performed at [facility];[address] | | LAB | | | | [address];[place] | | | | | | [address] | | | | + + + + + -+ | Albumin | 4.2Comment: Testing | 3.6 - 5.0 g/dL | EXTERNAL | | | | performed at [facility];[address] | | LAB | | | | [address];[place] | | | | | | [address] | | | | + + + + + -+ | Globulin | 3.4Comment: Testing | 1.3 - 4.9 g/dL | EXTERNAL | | | | performed at [facility];[address] | | LAB | | | | [address];[place] | | | | | | [address] | | | | + + + + + -+ | A/G Ratio | 1.2Comment: Testing | 1.0 - 2.4 | EXTERNAL | | | | performed at [facility];[address] | | LAB | | | | [address];[place] | | | | | | [address] | | | | + + + + + -+ | Bilirubin | 1.1Comment: Testing | 0.1 - 1.5 mg/dL | EXTERNAL | | | Total | performed at [facility];[address] | | LAB | | | | [address];[place] | | | | | | [address] | | | | + + + + + -+ | ALP, | 77Comment: Testing | 35 - 115 U/L | EXTERNAL | | | External | performed at [facility];[address] | | LAB | | | | [address];[place] | | | | | | [address] | | | | + + + + + -+ | AST | 35Comment: Testing | 10 - 45 U/L | EXTERNAL | | | | performed at [facility];[address] | | LAB | | | | [address];[place] | | | | | | [address] | | | | + + + + + -+ | ALT | 43Comment: Testing | 10 - 65 U/L | EXTERNAL | | | | performed at [facility];[address] | | LAB | | | | [address];[place] | | | | | | [address] | | | | + + + [...] | | | | | | at [facility];[address];[place] [address] | | | | + + + + + -+ | CK, Total | 510 (H)Comment: Testing | 55 - 400 U/L | EXTERNAL | | | | performed at [facility];[address] | | LAB | | | [address];[place] | | | | | | [address] | | | | + + + [...] | | | | | performed at [facility];[address];[place] | | | | | | [address] | | | | + + + + + -+ | aPTT, | 24Comment: Testing | 23 - 32 seconds | EXTERNAL | | | Patient | performed at [facility];[address] | | LAB | | [address];[place] | | | | | | [address] | | | | + + + + + -+ | CK-MB | 9.3 (H)Comment: Testing | 0.5 - 3.6 ng/mL | EXTERNAL | | | | performed at [facility];[address] | | LAB | | | | [address] [facility];[place], [place] | | | | | | [address] | | | | + + + [...] EXTERNAL | | | | performed at [facility];[address] | uIU/mL | LAB | | | | [address];[place] | | | | | | [address] | | | | + + + [...] EXTERNAL | | | | performed at [facility];[address] | | LAB | | | | [address] [facility];[place], [place] | | | | | | [address] | | | | + + + [...] | | | | | | scientific editor TERESE NINA (2) | | | | | | on 02/27/2014 6:56:17 PM | | | | + + + + + + + + | Specimen | + + | | + + + + + | Narrative | Performed At | + + + | [facility] | EXTERNAL LAB | [...]
--- OUTSIDE RECORDS SUMMARY | ~2019-11-16 | XMS | Encounter Summary ---
Demographics + + + | Address | [address] | | | [place] [address] | + + + | Home Phone [...] Team Providers + +------+ + | Care Oem Sales Manager Name | Role | Phone | + +------+ + PCP | Unavailable | + +------+ + Encounter Details +--------+ + + + + | Date | Type | Department | Care Team | Description | +--------+ + + + + | 10/29/ | Hospital | [facility] | Pia Akhtar | | | 2003 | Encounter | CONVERSION [address] | MD [address] | | | | | [address] | [address] | | | | | [place]IN[address] | [place] [address] | | | | | [address] | [phone] | | | | | [phone] | | | +--------+ + + + [...] 2019 | Monitor | | [address] | Interrogation | | | | | [place], | (Primary Dx); | | | | | [place] [address] | Presence of | | | | | [phone] | permanent cardiac | | | | [...] Dx); | | | | | [place] [address] | Presence of | | | | | [phone] | permanent cardiac | | | | [...] [address] | | | | | | [place], | | | | | | [place] [address] | | | | | | [phone] | | | | | | | | +--------+ + + + + documented as of this encounter Visit Diagnoses Not on filedocumented in this encounter"
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
[2019-11-16] MEDS ORDERED: DICYCLOMINE HCL20 MG PO (19:22)
== END 2019-11-16 19:30 | disposition home or self-care (01) ==
LOC: ED 17:05
DX: K58.0 Irritable bowel syndrome with diarrhea (principal); I10 Essential (primary) hypertension; Z87.891 Personal history of nicotine dependence
CPT/HCPCS: 80053; 83690; 85025; 96361; 96374; 96375; 99284-25; J1170; J2405; J7030

== ENCOUNTER 2019-12-06 13:50 | Emergency (ER) | payer MEDICARE ==
[~2019-12-06] VITALS: Ht 193 cm; Wt 95.2 kg
--- OUTSIDE RECORDS SUMMARY | ~2019-12-06 | XMS | Encounter Summary ---
Demographics + + + | Address | [address] | | | [place] [address] | + + + | Home Phone | | + + + | Preferred Language | Unknown | + + + | Marital Status | | + + + | Catholic Affiliation | 1013 | + + + | Race | Unknown | + + + | Ethnic Group | Unknown | + + + Author + + + | Author | [facility] | | | and [place] | + + + | Organization | [facility] | | | and [...] Team Providers + +------+ + | Care Cultural Anthropology Professor Name | Role | Phone | + +------+ + | Kirk French MD | PCP | | + +------+ + Encounter Details +--------+ + + + + | Date | Type | Department | Care Team | Description | +--------+ + + + + | 05/28/ | Hospital | [facility] | Conversion | Pain | | 2015 | Encounter | CONVERSION DEP [address] | Transaction, | | | | | [address] | Provider Unknown | | | | | [place], [place] | [phone] | | | | | [address] | | | | | | [phone] | | | +--------+ + + + + Social History + +--------+ +--------+------+ | Tobacco Use | Types | Packs/Day | Years | Date | | | | | Used | | + +--------+ +--------+------+ | Current Some Day | Cigars | | | | | Smoker | | | | | + +--------+ +--------+------+ + +---+---+---+ | Smokeless Tobacco: | | | | | Never Used | | | | + +---+---+---+ + + | Comments: 1 cigar twice a year for 30 (when he went fishing) | + + + + +---------+ + | Alcohol Use | Drinks/Week | oz/Week | Comments | + + +---------+ + | Yes | 4 Cans of beer | 4.0 | | + + +---------+ + + [...] + + + +---------+ + + | [place]-3 Fatty | CAPS, one capsule by | [...] + +---------+ + + | | Take by mouth 2 | | 0 | | | | 5-Hydroxytryptophan | (two) times daily. | | | | 6 | | (5-HTP) 100 MG CAPS | | | | | | + + + +---------+ + + | aluminum & | Take 30 mLs by mouth | 1 | 0 | 03/20/20 | | | magnesium | every 4 hours as | Bottle | | 15 | 8 | | hydroxide-simethicon | needed for | | | | | | e (MAALOX REGULAR | Indigestion. | | | | | | STRENGTH) 200-200-20 | | | | | | | mg/5 mL | | | | | | | suspensionIndication | | | | | | | s: PUD (peptic ulcer | | | | | | | disease) | | | | | | + + + +---------+ + + | amLODIPine | take 2 tablets by | 60 | 6 | 11/25/19 | | | (NORVASC) 5 mg | mouth once daily | tablet | | 15 | 5 | | tablet | | | | [...] | | 0 | | | | (KLONOPIN) 0.5 mg | Twice daily as | | | | 6 | | tablet | needed for Anxiety. | | | | | | | PATIENT STATED NO | | | | | | | LONGER TAKING THIS | | | | | | | MEDICATION. STATED | | | | | | | ON 06/23/2016. | | | | | + + + +---------+ + + | clonidine | Take 1 tablet by | 90 | 4 | 03/07/20 | | | (CATAPRES) 0.2 MG | mouth 3 times daily. | tablet | | 14 | 5 | | tablet | | | | | | + + + +---------+ + + | dronabinol | Take 10 mg by mouth | | 0 | | | | (MARINOL) 10 MG | 2 times daily | | | | 7 | | capsule | (before meals). | | | | | + + + +---------+ + + | EMMA VELÁSQUEZ | Take by mouth. | | 0 | | | | 550 MG CAPS | | | | | 6 | + + + +---------+ + + | LORazepam (ATIVAN) | 1/2 to 1 tab up to | 20 [...] metoprolol | Take 1 tablet by | 30 | 6 | 10/23/20 | | | succinate | mouth Daily. | tablet | | 14 | 5 | | (TOPROL-XL) 200 mg | | | | | | | ER tablet | | | | | | + + + +---------+ + + | Nattokinase 100 MG | Take by mouth 2 | | 0 | | | | CAPS | (two) times daily. | | | | 9 | + + + +---------+ + + | nitroglycerin | Take one tablet | 25 | 11 | 01/29/20 | | | (NITROSTAT) 0.4 mg | under tongue as | tablet | | 15 | 5 | | SL tablet | needed for chest | | | | | | | pain, may repeat | | | | | | | every 5 minutes up | | | | | | | to 3 doses. If no | | | | | | | relief after 3rd | | | | | | | dose, call 911 | | | | | + + + +---------+ + + | pantoprazole | Take 1 tablet by | 30 | 2 | 03/20/20 | | | (PROTONIX) 40 mg | mouth every morning | tablet | | 15 | 7 | | tabletIndications: | (before breakfast). | | | | | | PUD (peptic ulcer | | | | | | | disease) | | | | | | + + + +---------+ + + | pravastatin | take 1 tablet by | 90 | 1 | 09/20/20 | | | (PRAVACHOL) 40 MG | mouth once daily | tablet | | 14 | 5 | | tablet | | | | | | + + + +---------+ + + | promethazine | Take 25 mg by mouth | | 0 | 03/09/20 | | | (PHENERGAN) 25 mg | every 8 hours as | | | 12 | 8 | | tablet | needed. | | | | | + + + +---------+ + + | silodosin | Take 1 capsule by | 21 | 0 | 12/05/19 | | | (RAPAFLO) 8 mg CAPS | mouth Daily. to | capsule | | 15 | 6 | | | reduce urinary | | | | | | | frequency Lot | | | | | | | #[id number], exp 07/2016 | | | | | + + + +---------+ + + | valACYclovir | take 1 tablet by | 90 | 1 | 10/24/20 | | | (VALTREX) 500 mg | mouth once daily | tablet | | 14 | 8 | | tablet | | | | | | + + + +---------+ + + documented as of this encounter Plan of Treatment +--------+---------+ + + + | Date | Type | Specialty | Care Team | Description | +--------+---------+ + + + | 12/18/ | Office | Gastroenterology | Darin Gandhi | | 2019 | Visit | | MD Jacek [address] | | | | | | [address] | | | | | | [place] [address] | | | | | | [phone] | | | | | | | | +--------+---------+ + + + | 01/01/ | Office | Cardiology | [place], | | | 2019 | Visit | | PARISA [place] [address] | | | | | | [place] | | | | | | [place] [address] | | | | | | [phone] | | | | | | | | +--------+---------+ + + + documented as of this encounter Procedures + +--------+ + + + | Procedure Name | Priori | Date/Time | Associated Diagnosis | Comments | | | ty | | | | + +--------+ + + + | CT CERVICAL SPINE WO | Routin | 06/18/2014 | | Results for this | | CONTRAST | e | 11:31 PM | | procedure are in the | | | | PDT | | results section. | + +--------+ + + + documented in this encounter Results CT Cervical Spine wo Contrast (06/18/2014 11:31 PM PDT) + + | Specimen | + + | | + + + + + | Narrative | Performed At | + + + | This is a non-reportable procedure without a radiologist report and | | | is used for image storage only | | + + + + + | Procedure Note | + + | Kevin, Rad Conversion - 07/07/2019 5:05 AM PDT This is a non-reportable procedure | | without a radiologist report and isused for image storage only | + + documented in this encounter Visit Diagnoses + + | Diagnosis | + + | Pain Generalized pain | + + documented in this encounter"
--- OUTSIDE RECORDS SUMMARY | ~2019-12-06 | XMS | Encounter Summary ---
Demographics + + + | Address | [address] [place] [address] [address] | | | [place] [address] | + + + | Home Phone | | + + + | Preferred Language | Unknown | + + + | Marital Status | | + + + | Alevism Affiliation | Unknown | + + + | Race | White | + + + | Ethnic Group | Not or | + + + Author + + + | Author | [facility] | + + + | Organization | [facility] | + + + | Address | Unknown | + + + | Phone | Unavailable | + + + Support + + + + + | Name | Relationship | Address | Phone | + + + + + | Rachel Valencia | [address] | [place] | | | | | [address] | | + + + + + Care Team Providers + +------+ + | Care Long Winder Tender Name | Role | Phone | + +------+ + | Darion Holden DO | PCP | | + +------+ + Reason for Visit Diagnostic Testing (Routine) +--------+--------+ + + + + | Status | Reason | Specialty | Diagnoses / | Referred By | Referred To | | | | | Procedures | Contact | Contact | +--------+--------+ + + + + | Closed | | Cardiology | Diagnoses | Omero, | Car Echo | | | | | Chest pain | Farooq Almaguer, | [facility] [address] | | | | | Bradycardia | DO [address] | | | | | Procedures | Yao Booth | Mailcode: | | | | | | [place] | [facility] | | | | | TRANSTHORACI | [place], [place] | for Health | | | | | C | [address] | and Healing, | | | | | ECHOCARDIOGR | Phone: | [address] | | | | | AM, ADULT | [phone] | [place], [place] | | | | | | Fax: | [address] | | | | | | [phone] | Phone: | | | | | | | [phone] | +--------+--------+ + + + + Encounter Details +--------+ + + + + | Date | Type | Department | Care Team | Description | +--------+ + + + + | 02/03/ | Hospital | Cardiac | | | | 2010 | Encounter | Non-Invasive Testing | | | | | | at [facility] [address] | | | | | | [address] Mailcode: | | | | | | [facility] | | | | | | [facility], | | | | | | [address] | | | | | | [place], [place] | | | | | | [address] | | | | | | [phone] | | | +--------+ + + + + Social History + +-------+ +--------+ + | Tobacco Use | Types | Packs/Day | Years | Date | | | | | Used | | + +-------+ +--------+ + | Former Smoker | | | 39 | Quit: 02/03/2007 | + +-------+ +--------+ + + +---+---+---+ [...] + + + +---------+ + + | ASCORBIC ACID | Take 1 Tab by mouth | | 0 | 02/04/20 | | | (VITAMIN C ORAL) | once daily. | | | 11 | | + + + +---------+ + + | Aspirin 81 mg Oral | Take 81 mg by mouth | | 0 | | | | Tablet | once daily. | | | | | + + + +---------+ + + | HYDROmorphone | Take by mouth. 1-2 | | 0 | | | | (DILAUDID) 4 mg Oral | every 4-6 hours | | | | | | Tablet | | | | | | + + + +---------+ + + | lisinopril | Take 10 mg by mouth | | 0 | | | | (ZESTRIL) 20 mg Oral | once daily. 11/23 | | | | | | Tablet | tablet at bedtime | | | | | + + + +---------+ + + | metoprolol | Take 50 mg by mouth | | 0 | | | | tartrate 50 mg Oral | two times daily. | | | | | | Tablet | | | | | | + + + +---------+ + + | MULTI-VITAMIN ORAL | Take 1 Tab by mouth | | 0 | 02/04/20 | | | | once daily. | | | 11 | | + + + +---------+ + + | oxyCODONE CR | Take by mouth. 2 | | 0 | /15 | | | (OXYCONTIN) 20 mg | tablets two to three | | | 11 | | | Oral Tablet Extended | times daily | | | | | | Release 12 hr | | | | | | + + + +---------+ + + | oxyCODONE, | Take by mouth. 1-2 | | 0 | /20 | | | immediate release, | tablets every 4-6 | | | 11 | | | 30 mg Oral Tablet | hours | | | | | + + + +---------+ + + | SALMON OIL/OMEGA-3 | Take 2 Caps by mouth | | 0 | /1520 | | | FATTY ACIDS (SALMON | once daily. | | | 11 | | | OIL-1000 ORAL) | | | | | | + + + +---------+ + + documented as of this encounter Progress Notes Rolan Hernandez 02/03/2011 4:03 PM PDTTransthoracic echocardiogram completed. Final report to follow. documented in this encounter Plan of Treatment Not on filedocumented as of this encounter Procedures + +--------+ + + + | Procedure Name | Priori | Date/Time | Associated Diagnosis | Comments | | | ty | | | | + +--------+ + + + | TRANSTHORACIC | | 02/03/2011 | | Results for this | | ECHOCARDIOGRAM, | | 12:00 AM | | procedure are in the | | ADULT | | PDT | | results section. | + +--------+ + + + documented in this encounter Results TRANSTHORACIC ECHOCARDIOGRAM, ADULT (02/03/2011 12:00 AM PDT) + + + | Narrative | Performed At | + + + | | | + + + + + | Procedure Note | + + | Rachel De La Torre - 02/03/2011 4:42 PM PDT | | | + + documented in this encounter Visit Diagnoses + + | Diagnosis | + + | Chest pain Chest pain, unspecified | + + | Bradycardia Other specified cardiac dysrhythmias | + + | Chest pain, unspecified | + + | Other specified cardiac dysrhythmias(427.89) Other specified cardiac dysrhythmias | + + documented in this encounter"
--- OUTSIDE RECORDS SUMMARY | ~2019-12-06 | XMS | Encounter Summary ---
Demographics + + + | Address | [address] | | | [place] [address] | + + + | Home Phone [...] Team Providers + +------+ + | Care Returned Item Clerk Name | Role | Phone | + +------+ + | Michael Amanda DO | PCP | | + +------+ + Reason for Visit +--------+ + | Reason | Comments | +--------+ + | Other | records faxed | +--------+ + Encounter Details +--------+ + + + + | Date | Type | Department | Care Team | Description | +--------+ + + + + | 09/12/ | Telephone | [facility] [place] | Geri Angel, | Other (records | | 2012 | | CARDIOLOGY [address] | FLAKE MILLER HELPER [address] | faxed) | | | | [place], | [facility] [place] [facility], [place] | | | | | [place] [address] | [address] | | | | | [phone] | | | +--------+ + + + [...] | Gastroenterology | Darin Gandhi | | | 2019 | Visit | | MD Jacek [address] | | | | | | [address] | | | | | | [place] [address] | | | | | | [phone] | | | | | | | | +--------+---------+ + + + | 01/01/ | Office | Cardiology | [place], | | | 2019 | Visit | | PARISA [place] [address] | | | | | | [place], | | | | | | [place] [address] | | | | | | [phone] | | | | | | | | +--------+---------+ + + + documented as of this encounter Visit Diagnoses Not on filedocumented in this encounter"
--- OUTSIDE RECORDS SUMMARY | ~2019-12-06 | XMS | Encounter Summary ---
Demographics + + + | Address | [address] | | | [place] [address] | + + + | Home Phone | | + + + | Preferred Language | Unknown | + + + | Marital Status | | + + + | Yarsanism Affiliation | 1013 | + + + | Race | Unknown | + + + | Ethnic Group | Unknown | + + + Author + + + | Author | [facility] | | | and [place] | + + + | Organization | [facility] | | [...] Team Providers + +------+ + | Care Supply Chain Procurement Manager Name | Role | Phone | + +------+ + PCP | Unavailable | + +------+ + Encounter Details +--------+ + + + + | Date | Type | Department | Care Team | Description | +--------+ + + + + | 05/13/ | Hospital | [facility] | | | | 2007 | Encounter | [facility] | | | | | | [place] [address] | | | | | | [place] | | | | | | [address] | | | | | | [phone] | | | +--------+ + + + [...] | | | | | [place] [address] | | | | | | [phone] | | | | | | | | +--------+---------+ + + + | 01/01/ | Office | Cardiology | [place], | | | 2020 | Visit | | PARISA [place] [address] | | | | | | [place], | | | | | | [place] [address] | | | | | | [phone] | | | | | | | | +--------+---------+ + + + documented as of this encounter Visit Diagnoses Not on filedocumented in this encounter"
--- OUTSIDE RECORDS SUMMARY | ~2019-12-06 | XMS | Encounter Summary ---
Demographics + + + | Address | [address] | | | [place] [address] | + + + | Home Phone | | + + + | Preferred Language | Unknown | + + + | Marital Status | | + + + | Denominational Affiliation | 1013 | + + + | Race | Unknown | + + + | Ethnic Group | Unknown | + + + Author + + + | Author | [facility] | | | and [place] | + + + | Organization | [facility] | | [...] Team Providers + +------+ + | Care Logistics Planning Manager Name | Role | Phone | [...] Description | +--------+--------+ + + + | 10/18/ | Refill | [facility] | SunshinecherelleDaljit, | Medication Refill | | 2012 | | CARDIOLOGY [address] | | | | | [place], | [place], | | | | | [place] [address] | [place] [address] | | | | | [phone] | [phone] | | | | | | | [...] | | | | | [place] [address] | | | | | | [phone] | | | | | | | | +--------+---------+ + + + | 01/01/ | Office | Cardiology | [place], | | | 2019 | Visit | | PAR[facility] [place] [address] | | | | | | [place], | | | | | | [place] [address] | | | | | | [phone] | | | | | | | | +--------+---------+ + + + documented as of this encounter Visit Diagnoses Not on filedocumented in this encounter"
--- OUTSIDE RECORDS SUMMARY | ~2019-12-06 | XMS | Encounter Summary ---
Demographics + + + | Address | [address] | | | [place] [address] | + + + | Home Phone | | + + + | Preferred Language | Unknown | + + + | Marital Status | | + + + | Episcopal Affiliation | [id number] | + + + | Race | Unknown | + + + | Ethnic Group | Unknown | + + + Author + + + | Author | [facility] | | | and [place] | + + + | Organization | [facility] | | | [...] Team Providers + +------+ + | Care Director Of [facility] Name | Role | Phone | + +------+ + | Kirk French MD | PCP | | + +------+ + Reason for Visit + + + | Reason | Comments | + + + | Follow-up | | + + + | Coronary Artery | | | Disease | | + + + | Tachycardia | | + + + Encounter Details +--------+---------+ + + + | Date | Type | Department | Care Team | Description | +--------+---------+ + + + | 06/06/ | Office | [facility] | [place], | Essential | | 2019 | Visit | CARDIOLOGY [address] | hypertension | | | | [place], | [place], | (Primary Dx); | | | | [place] [id number] | [place] [id number] | Sinoatrial node | | | | [phone] | [phone] | dysfunction (HCC) | | | | | | with symptomatic | | | | | | bradycardia; | | | | | | Symptomatic PVCs; | | | | | | Tachycardia; | | | | | | Coronary artery | | | | | | disease involving | | | | | | crow coronary | | | | | | artery of crow | | | | | | heart without angina | | | | | | pectoris; Syncope, | | | | | | unspecified syncope | | | | | | type; Ascending | | | | | | thoracic aortic | | | | | | aneurysm (HCC); | | | | | | Hyperlipidemia, | | | | | | mixed | +--------+---------+ + + + Social History [...] + + + | Blood Pressure | 132/90 | 06/06/2019 2:25 PM | | | | | PDT | | + + + + + | Pulse | 80 | 06/06/2019 2:25 PM | | | | | PDT | | + + + + + | Temperature | - | - | | + + + + + | Respiratory Rate | 16 | 06/06/2019 2:25 PM | | | | | PDT | | + + + + + | Oxygen Saturation | - | - | | + + + + + | Inhaled Oxygen | - | - | | | Concentration | | | | + + + + + | Weight | 102.6 kg (226 lb 3.1 | 06/06/2019 2:25 PM | | | | oz) | PDT | | + + + + + | Height | 193 cm (6' 4") | 06/06/2019 2:25 PM | | | | | PDT | | + + + + + | Body Mass Index | 27.53 | 06/06/2019 2:25 PM | | | | | PDT [...] + + documented as of this encounter Patient Instructions Patient Instructions Julia Allen, Rn Dermatology - 06/06/2019 2:15 PM PDT1. Take a Nitroglycerin if you start having chest pain 2. Increase your atorvastatin to 40 mg once daily 3. Increase your Metoprolol to 150 mg once daily 4. He will follow up in 6-8 weeks, or sooner with concerns. documented in this encounter Progress Notes Janeen Vega ARNP - 06/06/2019 2:15 PM PDTFormatting of this note might be differen t from the original. PATIENT NAME: Moe Sanchez : 1960: AGE: 59 y.o. PRIMARY CARE: Kirk French MD OUTPATIENT FOLLOW UP VISIT Date of Service: 06/06/2019 HISTORY OF PRESENT ILLNESS: Moe Sanchez is a 59 y.o. male with a history of -critical coronary artery dise ase involving crow coronary artery of crow heart without angina pectoris, essential hype rtension, symptomatic bradycardia status post Medtronic dual-chamber permanent pacemaker imp lantation 06/14/09, frequent premature ventricular contractions status post ablation spring, and bipolar disorder with anxiety. He is being seen today for follow up and preoperati ve cardiac risk assessment for shoulder surgery. He was last seen 02/21/2019 at which time he would discontinue Clonidine. Start Amlodipine 5 mg once a day. He will follow up in 3 months for office visit and device interrogation, or sooner with concerns. Sooner if concerns. Since that time, he was seen in the emergency department at [facility] in [place] due to chest pain, no medication changes at that time. On 06/02/2019 he was seen here in [facility] with chest pain, irregular heart bet and shortness of breath. His blood wor k and ECG came back normal, he did state that he has been under a lot of stress and anxiety and has been out of his clonazepam. He was given a short amount of clonazepam and Ativan for the evening. He has had a fair energy level. He tries to stay active. He has chest pain occasionally, h e has been having chest pain all last week and this week, he did take a nitro yesterday for the chest pain and it did work. He states that he has been under a lot of stress and anxiety . And under a lot of pain due to a shoulder that will have surgery done on it this week. He has not noticed shortness of breath. He states that when he has chest pain sometimes it celeste l take his breath away. He has not had any lightheadedness or dizziness. He has not notice d palpitations. He has not had leg swelling. He is able to sleep laying down at night with out any symptoms of shortness of breath. He sleeps with CPAP machine in place nightly. He i s schedule for a shoulder surgery. MEDICAL, SURGICAL, AND PERSONAL HISTORY Past Medical, Surgical, Family, and Social History are reviewed in EPIC. CURRENT PROBLEMS Patient Active Problem List Diagnosis Hyperlipidemia, mixed Bipolar disorder Mixed anxiety depressive disorder Smoker Hypertension NONDEPENDENT OPIOID ABUSE IN REMISSION Fibromyalgia Low back pain CHRONIC PAIN SYNDROME Thrombocytopenia FATIGUE ABDOMINAL PAIN, UNSPECIFIED SITE NECK PAIN, CHRONIC Syncope Obstructive sleep apnea on CPAP ORGANIC INSOMNIA UNSPECIFIED CENTRAL SLEEP APNEA CONDS CLASSIFIED ELSEWHERE Ulcerative colitis Sinoatrial node dysfunction with symptomatic bradycardia Pacemaker HEPATITIS B PUD FATTY LIVER DISEASE Multiple substance abuse DEPRESSION Hypoglycemia Symptomatic PVCs Tachycardia Preventative health care Coronary artery disease involving crow coronary artery of crow heart without angina pectoris Cannabis abuse, daily use Ascending thoracic aortic aneurysm Pacemaker reprogramming/check DO NOT DELETE Anxiety about health Diarrhea Weight loss Beta Blockers - Daily Use Depression with anxiety H/O Lumbar Fusion - "6 levels" per pt Cannabis abuse Blood glucose elevated Decreased potassium in the blood Neuralgia Abnormal serum level of lipase Irritable bowel syndrome Obesity Left ureteral calculus CURRENT MEDICATIONS Current Outpatient Medications Medication Sig Dispense Refill amLODIPine (NORVASC) 5 mg tablet Take 1 tablet by mouth Daily. 30 tablet 11 Ascorbic Acid (VITAMIN C) 1000 MG tablet Take 1,000 mg by mouth Daily. aspirin 81 MG tablet Take 81 mg by mouth Daily. atorvaSTATin (LIPITOR) 20 mg tablet Take 1 tablet by mouth nightly. 90 tablet 2 clonazePAM (KLONOPIN) 1 mg tablet Take 1 tablet by mouth 3 times daily as needed for An xiety. 12 tablet 0 dicyclomine (BENTYL) 20 MG tablet Take 1 tablet by mouth 3 times daily as needed. Befor e meals 30 tablet 1 diphenhydrAMINE (BENADRYL) 25 MG capsule Take 25 mg by mouth as needed. diphenoxylate-atropine (LOMOTIL) 2.5-0.025 mg per tablet Take 1 tablet by mouth 4 times daily as needed for Diarrhea. Glucose Blood (BLOOD GLUCOSE TEST STRIPS) STRP Test up to 1 times a day as needed ( One touch ) HYDROmorphone (DILAUDID) 4 MG tablet Take 1 tablet by mouth every 4 hours. 0 hyoscyamine (LEVSIN) 0.[address] 1 tablet under the tongue every 4 hours a s needed for Cramping, Diarrhea or GI Spasms. 60 tablet 0 metoprolol succinate (TOPROL-XL) 100 mg ER tablet TAKE ONE TABLET BY MOUTH EVERY DAY 90 tablet 3 Misc Natural Products (OSTEO BI-FLEX/5-LOXIN ADVANCED PO) Take by mouth. Takes 2 table ts in the morning and 2 tablets at night Multiple Vitamins-Minerals (CENTRUM SILVER PO) Take 1 tablet by mouth Daily. NITROSTAT 0.[address] 1 tablet under the tongue if needed for chest pain may repeat every 5 minutes UP TO 3 DOSES; IF NO RELIEF AFTER 3RD DOSE, CALL 911 100 tablet 3 Wheeler-3 Fatty Acids (SALMON OIL-1000 PO) CAPS, one capsule by mouth daily twice daily ondansetron (ZOFRAN ODT) 4 mg disintegrating tablet Take 4 mg by mouth every 8 hours as needed for Nausea. ONE TOUCH DELICA LANCETS [facility] [place] Check glucose as needed for hypoglycemia 100 each 3 rOPINIrole (REQUIP) 1 mg tablet Take 1 tablet by mouth nightly. 0 sertraline (ZOLOFT) 50 mg tablet Take 100 mg by mouth Daily. UNABLE TO FIND Take 1 tablet by mouth Daily. MARINE-D3 UNCODED MEDICATION Diagnosis: Obstructive Sleep Apnea ICD-9: 327.23 Length of Need: 99 Months 1 Device 0 valACYclovir (VALTREX) 1 g tablet Take 1,000 mg by mouth 2 times daily. 1 No current facility-administered medications for this visit. ALLERGIES Allergies Allergen Reactions Prednisone Other (See Comments) Reaction: Mental Changes. Patient was "Homicidal" when he took a high dose Isosorbide Nitrate Other (See Comments) headache Clarithromycin Palpitations Rapid heartbeat Duloxetine Other (See Comments) Blood pressure and heart increase/palpitations Fentanyl Itching and Rash Hydrocodone Itching and Anxiety Agitation and grumpiness Hydrocodone-Acetaminophen Other (See Comments) agitation and "makes me very irritable" Morphine Itching Penicillins Rash Tramadol Hcl Itching ROS Review of Systems Constitutional: Negative for malaise/fatigue. Respiratory: Negative for shortness of breath. Cardiovascular: Negative for chest pain, palpitations and leg swelling. Neurological: Negative for dizziness and weakness. Endo/Heme/Allergies: Does not bruise/bleed easily. OBJECTIVE: PHYSICAL EXAM BP 132/90 | Pulse 80 | Resp 16 | Ht 1.93 m (6' 4") | Wt 102.6 kg (226 lb 3.1 oz) | BMI 27.53 kg/m Physical Exam Constitutional: He is oriented to person, place, and time. He appears well-developed and we ll-nourished. Adult male in no acute distress Neck: Normal carotid pulses and no JVD (No JVD) present. Carotid bruit is not present (Kanchan r). Cardiovascular: Normal rate, regular rhythm, S1 normal, S2 normal and normal pulses. Occas ional extrasystoles (PVC'S) are present. PMI is not displaced. Exam reveals no gallop and no friction rub. Murmur heard. Harsh midsystolic murmur is present with a grade of 2/6 at the upper right sternal border radiating to the neck. Pulses: Carotid pulses are 2+ on the right side, and 2+ on the left side. Radial pulses are 2+ on the right side, [...] Normal range of motion. He exhibits no edema (No leg swelling). Neurological: He is alert and oriented to person, place, and time. Gait abnormal. Skin: Skin is warm, dry and intact. No cyanosis. Nails show no clubbing. Psychiatric: He has a normal mood and affect. His speech is normal and behavior is normal. Judgment and thought content normal. His mood appears not anxious. Cognition and memory are normal. He does not exhibit a depressed mood. Vitals reviewed. ECG: I personally independently reviewed ECG tracing during this visit (interpreted and phoebe led by another provider): Results for orders placed or performed during the hospital encounter of ECG 12 lead Result Value Ref Range INTERPRETATION TEXT Atrial-paced rhythm Abnormal ECG Heart rate 75 bpm LAB RESULTS reviewed during visit today primarily from [facility]: LIPID Lab Results Component Value Date TRIG 88 05/27/2012 HDL 42 05/27/2012 LDL 173 (A) 05/27/2012 CHOLHDL 3.4 06/22/2016 LDLEX 76 10/18/2017 HDLEX 63 10/18/2017 TRIGEX 63 10/18/2017 CHOLEX 152 10/18/2017 CHEMISTRY Lab Results Component Value Date GLU 94 06/02/2019 GLUEX 85 04/11/2018 NA 139 06/02/2019 NAEX 144 04/11/2018 K 3.7 06/02/2019 KEX 4.1 04/11/2018 CL 106 06/02/2019 CLEX 111 (A) 04/11/2018 CO2 25 06/02/2019 CO2EX 27 04/11/2018 CALCIUM 9.6 06/02/2019 ALKPHOS 76 06/02/2019 AST 35 (H) 06/02/2019 ASTEX 30 04/11/2018 ALT 27 06/02/2019 ALTEX 28 10/18/2017 BILITOT 0.7 06/02/2019 CREA 0.92 06/02/2019 BUN 15 06/02/2019 EGFR >60 04/03/2013 EGFREX >60 04/11/2018 CREEX 1.1 04/11/2018 HEMATOLOGY Lab Results Component Value Date WBC 6.3 06/02/2019 WBCEX 8.44 04/11/2018 HGB 16.3 06/02/2019 HGBEX 15.6 04/11/2018 HCT 46.4 06/02/2019 HCTEX 45.5 04/11/2018 PLT 169 06/02/2019 PLTEX 157 04/11/2018 Lab Results Component Value Date TSH 1.23 06/26/2013 TSHEX 1.15 05/12/2016 BNP 48 06/02/2019 I reviewed records from [facility] for emergency department visit o n 06/02/2019 which is summarized in the HPI. RESULTS- I reviewed reports from [facility]: Ct Abdomen Pelvis W Contrast Result Date: 05/09/[address] ABDOMEN AND PELVIS 05/09/2019 4:40 PM CLINICAL HISTORY: ABDOMINAL PAIN CO MPARISON: CT April 01 and more remote imaging TECHNIQUE: Axial images are performed through the abdomen and pelvis following the uneventful intravenous administration of 85 mL Omnipaqu e 350 contrast. Coronal and sagittal reformations are also performed. ABDOMEN FINDINGS : Pacemaker leads are partially imaged at the level of the right heart. Imaged lung bases and mediastinum are otherwise unremarkable. The liver, partially contracted gallbladder, sp carmenza, pancreas and adrenal glands are unremarkable. Previously noted left renal calculi and the calculus at the left ureterovesical junction are no longer apparent. Few tiny right re nal calculi persist unchanged. There is no hydroureteronephrosis. The appendix appears to be surgically absent. The stomach and bowel are otherwise unremarkable without evidence of obstruction or visible inflammation. No free air, ascites, pathologic lymph node enlargemen t or hernia is evident. There is scattered aortoiliac calcification. The abdominal vascula ture is otherwise unremarkable. Chronic right posterior lower rib fractures are again eviden t. There is leftward lumbar curvature with similar changes of interbody and posterior paris a nd pedicle screw fusion at the transitional L5-S1 level. Some osseous interbody bridging of the disc space is suggested at the level of the interbody prostheses. Bones and soft tissu es are otherwise unremarkable. PELVIS FINDINGS: There is generalized prominence of the wal l of the bladder, which is likely accentuated by partial decompression. The prostate and se liang vesicles are unremarkable. Small, fat-containing bilateral inguinal hernias are again apparent. No free air, ascites or pathologic lymph node enlargement is evident. There is smooth convexity of the anterolateral junctions of the femoral heads and necks with left-gavi ed synovial herniation pits, suggesting femoroacetabular impingement. IMPRESSION - 1. NON -SPECIFIC PROMINENCE OF THE WALL OF THE BLADDER, LIKELY ACCENTUATED BY PARTIAL DECOMPRESSION . CLINICAL AND LABORATORY CORRELATION ADVISED. 2. NO RESIDUAL LEFT RENAL OR URETERAL CALCU LI OR HYDROURETERONEPHROSIS. 3. SIMILAR SMALL RIGHT RENAL CALCULI WITHOUT VISIBLE URETERAL CALCULUS OR HYDROURETERONEPHROSIS. 4. FAT-CONTAINING INGUINAL HERNIAS. Images were provided for interpretation on May 09, 2019 at 1655 hours. Results were finalized at 1710 hours. D ictated and Signed by: Rangel Gibson MD Electronically signed: 05/09/2019 5:09 PM Xr Chest Ap Portable Result Date: 06/02/2019 EXAM: XR CHEST AP PORTABLE dated 06/02/2019 6:54 PM HISTORY: dyspnea Comparison: 01/02/2019 T ECHNIQUE: A single portable view of the chest. FINDINGS: The lungs are symmetrically aerated . They are clear. There are no large pleural effusions. There is no pneumothorax. The ca rdiac and mediastinal contours are not enlarged. Stable atrial and ventricular leads from a n implanted device on the left chest. No acute osseous abnormalities. Partial visualizatio n of fusion changes in the cervicothoracic junction. IMPRESSION - No radiographic evidence f or acute disease in the chest. Dictated and Signed by: Emmanuel Gibbons MD Electronically s igned: 06/02/2019 8:05 PM Above data and testing is reviewed this visit; testing below is historical data unless othe rwise specified. ASSESSMENT: 1. Non-critical Coronary artery disease involving crow coronary artery of crow heart [facility] angina pectoris: A.Normal exercise sestamibi stress test on 05/25/09.LVEF by g ated SPECT was 53%. B.Echocardiogram from 12/30/12 shows a Mild left atrial dilatat ion.A normal left ventricular size, wall thickness and motion.Preserved left ventric ular systolic function.LVEF is 65%.A mild aortic root dilatation measuring 3.9 cm in diameter.A mildly thickened mitral valve with a mild mitral valve regurgitation.A m ild aortic valve regurgitation.Mild tricuspid valve regurgitation. C. Persantine sestamibi stress test done on shows a Pers antine EKG is negative.An abnormal Persantine sestamibi myocardial perfusion imaging marcelle dy with a small sized, reversible defect of a mild stability of the proximal inferior, mid i nferior and distal inferior wall.This suggests the possibility of a myocardial ischemia of the right coronary artery territory.A normal left ventricular size, wall thickness an d motion.Preserved left ventricular systolic function.LVEF is 66 percent by gated SP ECT.Of note, diaphragmatic inferior wall soft tissue attenuation cannot completely be ru led out. D. LHC 12/25/13, shows non critical coronary artery disease, mild e cstatic change to the left main artery, the coronary circulation is right dominant, normal l eft ventricular size, wall thickness and motion, preserved left ventricular systolic functio n, LVEF is 75%, normal systemic blood pressure, successful TR band application to the right radial artery. E.Echocardiogram 03/19/15 shows a normal left ventricular size w ith mild concentric left ventricular hypertrophy, LVEF 60%, grade 1 left ventricular diastol ic dysfunction, mild aortic root dilatation measuring 4.2 cm in diameter, mild mitral valve regurgitation, mild tricuspid valve regurgitation, mild aortic valve insufficiency. F.Echocardiogram 06/16/16, shows normal left ventricular size, wall thickness and motion, preserved left ventricular systolic function, LVEF is 70%, grade 1 left ventricular diastolic dysfunction, normal valvular structure, mild aortic root dilata tion measuring 4.0 cm in diameter, normal right-sided pressure, normal IVC with a normal res piratory collapse, when compared to echocardiography on 03/19/15, no significant changes. G. Echocardiogram done 10/2017 showed top normal left atrial size. Normal left ventricular size, wall thickness and motion. Preserved left ventricular systolic function. LVEF is 65-70%. Grade 1 left ventricular diastolic dysfunction. Pacemaker lead in right ventricle. Normal right-sided pressure. Normal valvular structure. Mild ascending aortic dilatation me asuring 4.3 cm in diameter. Aortic root measured 3.9 cm in diameter. Normal IVC with normal respiratory collapse H. stress test from 07/21/2018 shows Regadenoson EKG is negative. N ormal Regadenoson sestamibi myocardial perfusion study. Normal left ventricular size, wall thickness and motion. Preserved left ventricular systolic function. LVEF by gated SPECT is 64%. I. Left heart catheterization done on 01/25/[address] nary artery disease; borderline 50% eccentric lesions to the mid LAD, luminal irregularity f or the rest of the vascular territories, there is a right dominatecirculation, normal LV s ystolic function with an EF of 75%, systemic blood pressure is normal, there was successful hemostasis with a TR hemostatic band, by Sydni Singletary MD J. Today, 06/06/2019, he is symptomatic, He has occasional angina that has been happening more often. He has occasional dyspnea with angina. He also has been having increas e in palpitations. He is on a medical regimen with aspirin, ARB, beta-edvin and statin. Th ere are no signs or symptoms of overt congestive heart failure, and his physical exam shows no significant fluid retention. He is in class II- Symptoms with moderate exertion of the N ew York Heart Ass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 Heart failure stage A-pre-heart failure. 2. Symptomatic PVC's status post ablation: A. 48-hour Holter monitor from 01/20/10 shows predominant normal sinu s rhythm with DDD pacing noted, heart rate 60 to 155 beats per minute, average 87 beats per minute; occasional premature atrial contractions, including rare couplets; very frequent pre mature ventricular contractions with occasional ventricular bigeminy noted. B. EP study and ablation for ventricular arrhythmia performed by Dr Juan Diego Gambino at [facility] on 01/30/2013.Patient had spontaneous PVC'sfr om 3 predominant morphology of left bundle branch block.Unfortunately, patient did have difficulty laying still during the procedure despite large amounts of sedation and coaching. After repeated attempts at ablation in one particular area, the patient continues to hav e rare PVC's, although, definitely less than pre procedure.Patient tolerated the procedu re, pacemaker was programmed to AAIR/DDDR lower rate of 78.And diltiazem was added to th e regimen as well.However, patient decided not to started diltiazem.Patient is sched uled to go back in 3 days to [place] for an attempt of ablation under general anesthesia. C. On 04/03/2013 patient underwent second attempt for PVC ablation under general anesthesia.According to the procedure notes from procedure a first and sec ond ablation were performed in the areas mapped.After ablation, they were no longer spon taneous recurrence of the PVC throughout the remainder of the procedure over a greater than 30 minute waiting period.A "chari" of ablation lesion was performed and the area, sabine use an area was right next to arrange in the patient's anatomy due to restrictions caused th e catheter to drop off the ridge they did hold breath brought to 30 seconds to allow for abl ation of the lesions.The patient tolerated the procedure well with no immediate complica tions and they were unable to further interviews any more PVC's. D. Event monitor done on 11/10/2013 shows baseline transmission sin us rhythm at 73 beats per minute.There were a total of 5 events, no new symptoms waiting , palpitations, irregular heartbeat.All the transmissions were notable for sinus rhythm. No arrhythmias or ectopy were noted during any of the transmissions. E. Event monitor 4 weeks on 08/25/2018 shows, wireless even study f rom 07/21 until 08/22/2018, baseline EKG shows atrial paced rhythm with heart rate of 75-130 b pm, PAC'sin couplets and PVC'swere noted, by Sydni Singletary MD. F. Today, 06/06/2019, he note palpitations are not completely contro lled and would benefit from having medication adjustment. They seemed to have gotten worse with the chest pain. 3. Essential hypertension with goal blood pressure less than 130/80: A. Today, 06/06/2019, his blood pressure is borderline elevated. He has seen 170/101 at home at times. 4. Ascending thoracic aorta aneurysm: A. CTA of chest and abdomen done on 02/27/2014 revealed a 4 cm aneu rysmal dilatation of the ascending thoracic aorta. This may be followed sequentially at 6 mo nth intervals with non contrast CT of the chest. Prior low back and neck surgeries. Pacemake r. Fatty infiltration of the liver. No renal stenoses or obstructions identified and no evid ence of dissection. 2 left renal arteries. B. Aneurysmal dilation of the ascending aorta measuring up to 3.9 c m in diameter at the level of the right pulmonary artery. No evidence of dissection or peria ortic fluid collection. No filling defects in the pulmonary arterial system to suggest pulmo nary embolism C. CTA chest 03/18/15 shows Stable ectasia of ascending thoracic aor ta that measures up to 4.1 cm. His echocardiogram at that same time showed 4.2 cm, so to min imize radiation exposure, would plan on checking CTA if echocardiogram shows change, and rg n on rechecking echocardiogram next spring. 5. Sinoatrial node dysfunction with symptomatic bradycardia: A. The echocardiogram on 05/25/09 revealed a normal left ventricular size and systolic function, LVEF 65 to 70%. B.Medtronic DDD permanent pacemaker implantation on 06/14/[address] Sydni Singletary. C. Last device interrogation shows no events. Heart rate histogram shows a fair distribution. There is a normal stable device function. Estimated remaining [facility] longevity is 3.5 years. D. Device was not checked in office today. E. Today, 06/06/2019, he note palpitations are not completely contro lled and would benefit from having medication adjustment. 6. Lightheadedness and dizziness/ presyncope: A. Episode of presyncope 05/28/10 evaluated in the emergency departme , thought to have vasovagal symptoms. B. Today, 06/06/2019, he states that he has not had any episodes of lightheadedness or dizziness. 7. History of cigarette smoking. A. He started smoking and he said he will stop after he finish is l ast 4 cigars. B. He continues to smoke cigarettes and is counseled on the importance of smoking cessatio n and is now ready to make a plan and set a quit date. He is counseled on this for < 3 luz marcos. He states that he started smoking again for about 6 weeks, he is currently not smoking. 8. Bipolar disease with anxiety/depression A. He is using clonazepam as needed. B. 01/11/2019, he will see his PCP and see about his medication. 9. Preoperative cardiac risk assessment for shoulder surgery: A. His Revised Cardiac Risk Index (RCRI) is calculated showing a elevated risk with estima kevin 6.0% risk of MACE. His Arnett Activity Status Index (DASI) score is calculated and shows he has a functional capacity of 8.97 METS. He is on a beta edvin. He does not require an y further testing or medication adjustments. Prior to proceeding with surgery, the risk and benefit of the procedure need to be discussed between patient and surgeon. PLAN: 1. Increase Atorvastatin to 40 mg once daily by mouth HS 2. Preoperative cardiac risk assessment for shoulder surgery: A. His Revised Cardiac Risk Index (RCRI) is calculated showing a elevated risk with estima kevin 6.0% risk of MACE. His Arnett Activity Status Index (DASI) score is calculated and shows he has a functional capacity of 8.97 METS. He is on a beta edvin. He does not require an y further testing or medication adjustments. Prior to proceeding with surgery, the risk and benefit of the procedure need to be discussed between patient and surgeon. 3. Increase Metoprolol succinate to 150 mg once daily by mouth 4. He will continue taking nitro SL with chest pain 5. He will follow up in 6 to 8 weeks for office visit, or sooner with concerns. Julia Clemente, Rn Dermatology am acting as a scribe on behalf of, and in the presenc e of PARISA Lomas. - Reji Church 06/06/2019 15:10 Janeen Clemente ARNP, personally performed the services described in this documentati on, as scribed in my presence and it is both accurate and complete. -PARISA Lomas 06/06/2019 Portions of this chart may have been created with S[employer] voice recognition software. Occasi onal wrong-word or sound-alike substitutions may have occurred due to the inherent granger itations of voice recognition software. Please read the chart carefully and recognize, using context, where these substitutions have occurred. documented in this encounter Plan of Treatment +--------+---------+ + + + | Date | Type | Specialty | Care Team | Description | +--------+---------+ + + + | 12/18/ | Office | Gastroenterology | Darin Gandhi | | 2019 | Visit | | MD Jacek [address] | | | | | [address] | | | | | | [place] [address] | | | | | | [phone] | | | | | | | | +--------+---------+ + + + | 01/01/ | Office | Cardiology | Silvia, | | | 2019 | Visit | | PARISA [place] [address] | | | | | | [place] | | | | | | [place] [address] | | | | | | [phone] | | | | | | | | +--------+---------+ + + + documented as of this encounter Procedures + +--------+ + + + | Procedure Name | Priori | Date/Time | Associated Diagnosis | Comments | | | ty | | | | + +--------+ + + + | ECG 12 LEAD | Routin | 06/06/2019 | Essential | Results for this | | | e | 2:51 PM | hypertension | procedure are in the | | | | PDT | | results section. | + +--------+ + + + documented in this encounter Results ECG 12 lead (06/06/2019 2:51 PM PDT) + + + + + + | Component | Value | Ref Range | Performed | Pathologist | | | | | At | Signature | + + + + + + | VENTRICULAR | 75 | BPM | [facility] | | | RATE EKG | | | | | + + + + + + | ATRIAL RATE | 75 | BPM | [facility] | | + + + + + + | P-R | 192 | ms | [facility] | | | INTERVAL | | | | | + + + + + + | QRS | 102 | ms | [facility] | | | DURATION | | | | | + + + + + + | Q-T | 386 | ms | [facility] | | | INTERVAL | | | | | + + + + + + | Q-T | 431 | ms | [facility] | | | INTERVAL | | | | | | (CORRECTED) | | | | | + + + + + + | P WAVE AXIS | 63 | degrees | [facility] | | + + + + + + | QRS AXIS | 55 | degrees | [facility] | | + + + + + + | T AXIS | 28 | degrees | [facility] | | + + + + + + | INTERPRETAT | Atrial-paced | | [facility] | | | ION TEXT | rhythmAbnormal ECGWhen | | | | | | compared with ECG of | | | | | | 02-JUN-2019 18:57,No | | | | | | significant change was | | | | | | foundConfirmed by | | | | | | SYDNI SINGLETARY MD | | | | | | ([id number]) on 06/06/2019 | | | | | | 3:43:10 PM | | | | + + [...] + | Diagnosis | + + | Essential hypertension - Primary Unspecified essential hypertension | + + | Sinoatrial node dysfunction (HCC) with symptomatic bradycardia Sinoatrial node | | dysfunction | + + | Symptomatic PVCs Other premature beats | + + | Tachycardia Tachycardia, unspecified | + + | Coronary artery disease involving crow coronary artery of crow heart without | | angina pectoris | + + | Syncope, unspecified syncope type | + + | Ascending thoracic aortic aneurysm (HCC) Thoracic aneurysm without mention of rupture | + + | Hyperlipidemia, mixed Mixed hyperlipidemia | + + documented in this encounter
--- OUTSIDE RECORDS SUMMARY | ~2019-12-06 | XMS | Encounter Summary ---
Demographics + + + | Address | [address] | | | [place] [address] | + + + | Home Phone [...] Team Providers + +------+ + | Care Pest Control Operator Name | Role | Phone | [...] [address] | | | | | [place], | [place], | | | | | [place] [address] | [place] [address] | | | | | [phone] | | | | | | | [...] | | | | | | [place] [address] | | | | | | [phone] | | | | | | | | +--------+---------+ + + + | 01/01/ | Office | Cardiology | [place], | | | 2019 | Visit | | PARISA [place] [address] | | | | | | [place], | | | | | | [place] [address] | | | | | | [phone] | | | | | | | [...] +--------+ + + + | EXTERNAL LAB: [facility] | [facility] | 05/12/2016 | | Results for this | | | e | | | procedure are in the | | | | | | results section. | + +--------+ + + + | EXTERNAL LAB: [facility] | [place] | 05/12/2016 | | Results for this [...] Resulting Agency Comment | + + | [facility] | + + + +---------+ + [...] Resulting Agency Comment | + + | [facility] | + + + +---------+ + [...] [address] | [place] | [phone] | | [facility] | | [address] | | | - LABORATORY | | [...]
--- OUTSIDE RECORDS SUMMARY | ~2019-12-06 | XMS | Encounter Summary ---
Demographics + + + | Address | [address] | | | [place] [address] | + + + | Home Phone | | + + + | Preferred Language | Unknown | + + + | Marital Status | | + + + | Roman Catholic Affiliation | 1013 | + + + | Race | Unknown | + + + | Ethnic Group | Unknown | + + + Author + + + | Author | [facility] | | | and [place] | + + + | Organization | [facility] | | | and [place] | + + + | Address | Unknown | + + + | Phone | Unavailable | + + + Support + + +---------+ + | Name | Relationship | Address | Phone | + + +---------+ + | Maria Isabel Leblancen | ECON | Unknown | | + + +---------+ + Care Team Providers + +------+ + | Care Cable Worker Helper Name | Role | Phone | + +------+ + | Kirk French MD | PCP | | + +------+ + Reason for Visit +--------+ + | Reason | Comments | +--------+ + | Other | Question about prep for procedure | +--------+ + Encounter Details +--------+ + + + + | Date | Type | Department | Care Team | Description | +--------+ + + + + | 12/23/ | Telephone | [facility] | Emmanuel Daniel MD | Other (Question | | 2018 | | GASTROENTEROLOGY | [address], [place] | about prep for | | | | [address] [place] | [address] [place], [place] | procedure) | | | | [address] [place], [place] | [address] | | | | | [address] | | | | | | [phone] | | | +--------+ + + + [...] | | | | | [place] [address] | | | | | | [phone] | | | | | | | | +--------+---------+ + + + | 01/01/ | Office | Cardiology | [place], | | | 2019 | Visit | | PARISA [place] [address] | | | | | | [place] | | | | | | [place] [address] | | | | | | [phone] | | | | | | | | +--------+---------+ + + + documented as of this encounter Visit Diagnoses Not on filedocumented in this encounter"
--- OUTSIDE RECORDS SUMMARY | ~2019-12-06 | XMS | Encounter Summary ---
Demographics + + + | Address | [address] | | | [place] [address] | + + + | Home Phone | | + + + | Preferred Language | Unknown | + + + | Marital Status | | + + + | Mu-Ism Affiliation | 1013 | + + + | Race | Unknown | + + + | Ethnic Group | Unknown | + + + Author + + + | Author | [facility] | | | and [place] | + + + | Organization | [facility] | [...] Team Providers + +------+ + | Care Forming Machine Tender Name | Role | Phone | + +------+ + | Kirk French MD | PCP | | + +------+ + Reason for Visit +--------+ + | Reason | Comments | +--------+ + | Other | Needs to know what he can eat today | +--------+ + Encounter Details +--------+ + + + + | Date | Type | Department | Care Team | Description | +--------+ + + + + | 12/23/ | Telephone | [facility] | Emmanuel Daniel MD | Other (Needs to know | | 2017 | | GASTROENTEROLOGY | [address], [place] | what he can eat | | | | [address] [place] | [address] [place], [place] | today) | | | | [address] [place], [place] | [address] | | | | | [address] | | | | | | [phone] | | | +--------+ + + + [...] | | | | | [place] [address] | | | | | | [phone] | | | | | | | | +--------+---------+ + + + | 01/01/ | Office | Cardiology | [place], | | | 2019 | Visit | | PARISA [place] [address] | | | | | | [place] | | | | | | [place] [address] | | | | | | [phone] | | | | | | | | +--------+---------+ + + + documented as of this encounter Visit Diagnoses Not on filedocumented in this encounter"
--- OUTSIDE RECORDS SUMMARY | ~2019-12-06 | XMS | Encounter Summary ---
Demographics + + + | Address | [address] | | | [place] [address] | + + + | Home Phone | | + + + | Preferred Language | Unknown | + + + | Marital Status | | + + + | Zoroastrian Affiliation | 1013 | + + + | Race | Unknown | + + + | Ethnic Group | Unknown | + + + Author + + + | Author | [facility] | | | and [place] | + + + | Organization | [facility] | | | [...] Team Providers + +------+ + | Care Dock Clerk Name | Role | Phone | [...] | +--------+ + + + + | 07/31/ | Telephone | [facility] [place] | Emmanuel Daniel MD | Medication Refill | | 2019 | | GASTROENTEROLOGY | [address], [place] | | | | | [address] [place] | [address] [place], [place] | | | | | [address] [place], [place] | [address] | | | | | [address] | | | | | | [phone] | | | +--------+ + + + [...] | | | | | [place] [address] | | | | | | [phone] | | | | | | | | +--------+---------+ + + + | 01/01/ | Office | Cardiology | [place], | | | 2019 | Visit | | PARISA [place] [address] | | | | | | [place] | | | | | | [place] [address] | | | | | | [phone] | | | | | | | | +--------+---------+ + + + documented as of this encounter Visit Diagnoses Not on filedocumented in this encounter"
--- OUTSIDE RECORDS SUMMARY | ~2019-12-06 | XMS | Encounter Summary ---
Demographics + + + | Address | [address] | | | [place] [address] | + + + | Home Phone [...] Team Providers + +------+ + | Care Barrel Builder Name | Role | Phone | + +------+ + | Kirk French MD | PCP | | + +------+ + Reason for Visit + + + | Reason | Comments | + + + | Follow-up | | + + + | Bradycardia | | + + + | Device Check | | | (In-office) | | + + + Encounter Details +--------+---------+ + + + | Date | Type | Department | Care Team | Description | +--------+---------+ + + + | 12/29/ | Office | [facility] | [place], | Ascending thoracic | | 2017 | Visit | CARDIOLOGY [address] | [address] [address] | aortic aneurysm | | | | [place], | [place], | (HCC) (Primary Dx); | | | | [place] [address] | [place] [address] | Coronary artery | | | | [phone] | [phone] | disease involving | | | | | | makah coronary | | | | | | artery of makah | | | | | | heart without angina | | | | | | pectoris; Essential | | | | | | hypertension with | | | | | | goal blood pressure | | | | | | less than 130/80; | | | | | | Hyperlipidemia, [...] + + + | Blood Pressure | 130/80 | 12/29/2016 1:09 PM | | | | | PST | | + + + + + | Pulse | 70 | 12/29/2016 1:09 PM | | | | | PST | | + + + + + | Temperature | - | - | | + + + + + | Respiratory Rate | 12 | 12/29/2016 1:09 PM | | | | | PST | | + + + + + | Oxygen Saturation | - | - | | + + + + + | Inhaled Oxygen | - | - | | | Concentration | | | | + + + + + | Weight | 115.7 kg (255 lb) | 12/29/2016 1:09 PM | | | | | PST | | + + + + + | Height | 190.5 cm (6' 3") | 12/29/2016 1:09 PM | | | | | PST | | + + + + + | Body Mass Index | 31.87 | 12/29/2016 1:09 PM | | | | | PST [...] encounter Progress Notes Janeen Vega ARNP - 12/29/2016 1:27 PM PSTFormatting of this note might be differen t from the original. PATIENT NAME: Moe Sanchez : 1960: AGE: 56 y.o. Pacemaker Evaluation Report December 29, 2016 Reason for evaluation: routine Indication for pacemaker: ICD-10-CM ICD-9-CM 1. Pacemaker reprogramming/check DO NOT DELETE Z45.018 V53.31 Device Interrogation 2. Sinoatrial node dysfunction (HCC) with symptomatic bradycardia I49.5 427.81 Device Inter rogation 3. Pacemaker - Medtronic - [id number] Adapta - Implanted 06/14/2009 Z95.0 V45.01 Device Interrog ation Patient was seated and reclined and device [...] PDF for further details. Data collected by Nataly Teague RN The technical aspect of downloading device data was supervised by Sydni Singlteary MD Underlying rhythm: Sinus Bradycardia between 47-62 0 mode switch episodes accounting for 0% of the time. 0 atrial high rate episodes. 0 ventricular high rate episodes. PVC singles 1,186 PVC singles /month 197.6 PVC runs 7 PVC runs /month 1.1 Histogram fair. Battery longevity 3.5 years. Normal and stable device function. Prefers office checks. Device interrogation due in office in 6 months. Santos Cruz ARNP - 12/29/2016 1:06 PM PSTFormatting of this note might be different from the origin al. PATIENT NAME: Moe Sanchez : 1960: AGE: 56 y.o. PRIMARY CARE: Kirk French MD OUTPATIENT FOLLOW UP VISIT Date of Service: 12/29/2016 HISTORY OF PRESENT ILLNESS: Moe Sanchez is a 56 y.o. male with a history of non-critical coronary artery d isease involving makah coronary artery of makah heart without angina pectoris, essential h ypertension, symptomatic bradycardia status post Medtronic dual-chamber permanent pacemaker implantation 06/14/09, frequent premature ventricular contractions status post ablation sprin g 2012, and bipolar disorder with anxiety. He is being seen today for follow up coronary ar taylor disease, hypertension and PVC's and device interrogation. He was last seen 09/01/2016 at which time he was to start Losartan 25 mg once every day, [facility] blood pressure log, and follow up in 3 months. Since that time, he went to the ER in [facility] with chest pain at the end of October that did not respond to NTG SL. He was seen a nd all his work up was negative. Since he has continued "doing well". He has had a good ener gy level. He tries to stay active. He was going to the gym and then he sort of "quit" while the holidays. He is planning on going back to it soon. He enjoys helping his friend with [employer] [place] in his spare time. He has not had any chest pain or discomfort at re st or with exertion. He has not noticed shortness of breath. He has not had any lighthead edness or dizziness. He has not noticed palpitations. He has not had leg swelling. He is able to sleep laying down at night without any symptoms of shortness of breath. Today, he h as no cardiac complaints. MEDICAL, SURGICAL, AND PERSONAL HISTORY Past Medical, Surgical, Family, and Social History are reviewed in EPIC. CURRENT PROBLEMS Patient Active Problem List Diagnosis Hyperlipidemia, mixed BIPOLAR DISORDER UNSPECIFIED Mixed anxiety depressive disorder Tobacco user Essential hypertension with goal blood pressure less than 130/80 NONDEPENDENT OPIOID ABUSE IN REMISSION FIBROMYALGIA LUMBAGO CHRONIC PAIN SYNDROME THROMBOCYTOPENIA FATIGUE ABDOMINAL PAIN, UNSPECIFIED SITE NECK PAIN, CHRONIC Syncope OBSTRUCTIVE SLEEP APNEA ORGANIC INSOMNIA UNSPECIFIED CENTRAL SLEEP APNEA CONDS CLASSIFIED ELSEWHERE ULCERATIVE COLITIS Chest pain. No ACS. Sinoatrial node dysfunction with symptomatic bradycardia Pacemaker - Medtronic - [id number] Adapta - Implanted 06/14/2009 HEPATITIS B PUD FATTY LIVER DISEASE SUBSTANCE ABUSE, MULTIPLE DEPRESSION Hypoglycemia Symptomatic PVCs Tachycardia Preventative health care Coronary artery disease involving makah coronary artery of makah heart without angina pectoris Cannabis abuse, daily use Ascending thoracic aortic aneurysm Pacemaker reprogramming/check DO NOT DELETE CURRENT MEDICATIONS Current Outpatient Prescriptions Medication Sig Dispense Refill aluminum & magnesium hydroxide-simethicone (MAALOX REGULAR STRENGTH) 200-200-20 mg/5 mL suspension Take 30 mLs by mouth every 4 hours as needed for Indigestion. 1 Bottle 0 Ascorbic Acid (VITAMIN C) 1000 MG tablet Take 1,000 mg by mouth Daily. aspirin 81 MG tablet Take 81 mg by mouth Daily. cholecalciferoL (VITAMIN D-3) 1,000 units CAPS capsule Take by mouth. cloNIDine (CATAPRES) 0.2 MG tablet Take 1 tablet by mouth 3 times daily. 270 tablet 3 diphenhydrAMINE (BENADRYL) 25 MG capsule Take 25 mg by mouth as needed. losartan (COZAAR) 25 mg tablet Take 1 tablet by mouth Daily. 30 tablet 5 MELATONIN TABS, at bedtime as needed Methylsulfonylmethane (MSM) 1000 MG TABS Take One time daily. metoprolol succinate (TOPROL-XL) 200 mg ER tablet take 1 tablet by mouth every evening 90 tablet 3 Misc Natural Products (OSTEO [...] 3RD DOSE, CALL 911 100 tablet 3 [place]-3 Fatty Acids (SALMON OIL-1000 PO) CAPS, one capsule by mouth daily twice daily ONE TOUCH DELICA LANCETS [facility] Check glucose as needed for hypoglycemia 100 each 3 pravastatin (PRAVACHOL) 40 MG tablet take 1 tablet by mouth NIGHTLY 90 tablet 3 promethazine (PHENERGAN) 25 mg tablet Take 25 mg by mouth every 8 hours as needed. rOPINIrole (REQUIP) 1 mg tablet Take 1 tablet by mouth nightly. 0 UNABLE TO FIND Take 1 tablet by mouth Daily. MARINE-D3 UNCODED MEDICATION Diagnosis: Obstructive Sleep Apnea ICD-9: 327.23 Length of Need: 99 Months 1 Device 0 valACYclovir (VALTREX) 500 mg tablet take 1 tablet by mouth once daily 90 tablet 1 No current facility-administered medications for this visit. ALLERGIES Allergies Allergen Reactions Clarithromycin Palpitations Rapid heartbeat Duloxetine Other (See Comments) Blood pressure and heart increase/palpitations Prednisone Other (See Comments) Patient was "Homicide" when he took a high dose Fentanyl Itching and Rash Hydrocodone Itching and Anxiety Agitation and grumpiness Penicillins Rash Tramadol Hcl Itching ROS Review of Systems Constitutional: Negative for malaise/fatigue. Respiratory: Negative for shortness of breath. Cardiovascular: Negative for chest pain, palpitations and leg swelling. Neurological: Negative for dizziness and weakness. Lightheaded = No OBJECTIVE: PHYSICAL EXAM BP 130/80 mmHg | Pulse 70 | Resp 12 | Ht 1.905 m (6' 3") | Wt 115.667 kg (255 lb) | BMI 31. 87 kg/m2 Physical Exam Constitutional: He is oriented to [...] not exh ibit a depressed mood. ECG: I personally independently reviewed ECG tracing during this visit (interpreted and phoebe led by another provider): Results for orders placed or performed in visit on 06/23/16 ECG 12 lead Result Value Ref Range INTERPRETATION TEXT Atrial-paced rhythm with prolonged AV conduction Abnormal ECG When compared with ECG of 29-AUG-2015 12:38, No significant change was found Confirmed by SYDNI SINGLETARY MD ([id number]) on 06/23/2016 2:08:15 PM LAB RESULTS reviewed during visit today primarily from [facility]: LIPID Lab Results Component Value Date TRIG 88 05/27/2012 HDL 42 05/27/2012 LDL 173* 05/27/2012 CHOLHDL 3.4 06/22/2016 LDLEX 88 06/22/2016 HDLEX 44.3 06/22/2016 TRIGEX 82 06/22/2016 CHOLEX 149 06/22/2016 CHEMISTRY Lab Results Component Value Date GLU 109 03/19/2015 GLUEX 91 05/12/2016 NA 135* 03/19/2015 NAEX 141 05/12/2016 K 3.5 03/19/2015 KEX 4.3 05/12/2016 CL 106 03/19/2015 CLEX 107 05/12/2016 CO2 25 03/19/2015 CO2EX 26 05/12/2016 CALCIUM 8.9 03/19/2015 ALKPHOS 56 03/18/2015 AST 29 03/18/2015 ASTEX 25 05/12/2016 ALT 25 03/18/2015 ALTEX 41 05/12/2016 BILITOT 0.9 03/18/2015 CREA 0.90 03/19/2015 BUN 15 03/19/2015 EGFR >60 04/03/2013 EGFREX >60 05/12/2016 CREEX 0.9 05/12/2016 HEMATOLOGY Lab Results Component Value Date WBC 5.9 03/19/2015 WBCEX 7.76 05/12/2016 HGB 16.3 03/19/2015 HGBEX 17.8* 05/12/2016 HCT 46.5 03/19/2015 HCTEX 53.2* 05/12/2016 PLT 136* 03/19/2015 PLTEX 129* 05/12/2016 I reviewed records from [facility] for office visit on 09/01/2016 which is summarized in the HPI. Above data and testing is reviewed this visit; testing below is historical data unless othe rwise specified. ASSESSMENT: 1. Essential hypertension with goal blood pressure less than 130/80: A. Today he states that he has been doing well. He only used the Los jazmin for a month then he quit and his blood pressure has been normal. He has lost 14 lbs si nce his last appointment and he has been dieting and exercising. He is in class I of the [place] Heart Ass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 On physical examination there are no signs of fl uid overload. 2. Non-critical Coronary artery disease involving makah coronary a rtery of makah heart without angina pectoris: A. Normal exercise sestamibi stress test on 05/25/09. LVEF by gat ed SPECT was 53%. B. Echocardiogram from [...] echocardiography on 03/19/15, no significant changes. G. Today, he had one episode that had a clear cardiac workout. 3. Symptomatic PVC's status post ablation: A. 48-hour [...] ventricular arrhythmia performed by Dr. Gambino at [facility] on 01/30/2013. Patient had spontaneous PVCs [...] to go back in 3 days to [place] for an attempt of ablation under general [...] patient has no further complaints of episodes palpitation s, lightheadedness or dizziness. 4. Sinoatrial node dysfunction with symptomatic bradycardia: A. The echocardiogram on 05/25/09 revealed a normal left ventricular s ize and systolic function, LVEF 65 to 70%. B. Medtronic DDD permanent pacemaker implantation on 06/14/[address] Juan Diego Singletary. C. Today his device interrogation shows no events. Heart rate hist ogram shows a fair distribution. There is a normal stable device function. Estimated [employer] battery longevity is 5 years.. 5. Lightheadedness and dizziness/ presyncope: A. [facility] thought to have vasovagal symptoms. 6. History [...] regimen is effective; continue present plan and medications. 2. check blood pressure and pulse twice daily for two weeks and return the log to our offic e. 3. He will follow up in 6 months for office visit and device interrogation, or sooner with concerns. Portions of this chart may have been created with [employer] voice recognition software. Occasi onal wrong-word or sound-alike substitutions may have occurred due to the inherent granger itations of voice recognition software. Please read the chart carefully and recognize, using context, where these substitutions have occurred. documented in th is encounter Plan of Treatment +--------+---------+ + + + | Date | Type | Specialty | Care Team | Description | +--------+---------+ + + + | 12/18/ | Office | Gastroenterology | Darin Gandhi | | | 2019 | Visit | | MD Jacek [address] | | | | | | [address] | | | | | | [place] [address] | | | | | | [phone] | | | | | | | | +--------+---------+ + + + | 01/01/ | Office | Cardiology | Silvia, | | | 2020 | Visit | | PARISA [address] | | | | | | [place], | | | | | | [place] [address] | | | | | | [phone] | | | | | | | | +--------+---------+ + + + documented as of this encounter Visit Diagnoses + + | Diagnosis | + + | Ascending thoracic aortic aneurysm (HCC) - Primary Thoracic aneurysm without mention | | of rupture | + + | Coronary artery disease involving makah coronary artery of makah heart without | | angina pectoris | + + | Essential hypertension with goal blood pressure less than 130/80 | + + | Hyperlipidemia, mixed Mixed hyperlipidemia | + + documented in this encounter
--- OUTSIDE RECORDS SUMMARY | ~2019-12-06 | XMS | Encounter Summary ---
Demographics + + + | Address | [address] | | | [place] [address] | + + + | Home Phone [...] Team Providers + +------+ + | Care Diabetes Trainer Name | Role | Phone | + +------+ + | Kirk French MD | PCP | | + +------+ + Encounter Details +--------+ + + + + | Date | Type | Department | Care Team | Description | +--------+ + + + + | 07/23/ | Orders Only | [facility] | Darlene Tirado, | | | 2014 | | CARDIOLOGY [address] | RN | | | | | [place], | | | | | | [place] [address] | | | | | | [phone] | | | +--------+ + + + [...] Gastroenterology | Darin Gandhi | | | 2020 | Visit | | MD Jacek [address] | | | | | | [address] | | | | | | [place] [address] | | | | | | [phone] | | | | | | | | +--------+---------+ + + + | 01/01/ | Office | Cardiology | Silvia, | | | 2020 | Visit | | PAR[address] | | | | | | [place], | | | | | | [place] [address] | | | | | | [phone] | | | | | | | | +--------+---------+ + + + documented as of this encounter Visit Diagnoses Not on filedocumented in this encounter"
--- OUTSIDE RECORDS SUMMARY | ~2019-12-06 | XMS | Encounter Summary ---
Demographics + + + | Address | [address] | | | [place] [address] | + + + | Home Phone [...] Providers + +------+ + | Care Order Fulfillment Specialist Name | Role | Phone | [...] | | | DDD | Scotty C, ATHLETIC SHOE DESIGNER | [facility] | | | | | (degenerativ | [address] [facility] | | | | | e disc | [facility] | MEDICAL | | | | | disease), | [address] | CENTER [address] | | | | | lumbar | B | [place] | | | | | Chronic | [place], [place] | [place], | | | | | left-sided | [address] | [place] [address] | | | | | low back | Phone: | Phone: | | | | | pain with | [phone] | [phone] | | | | | left-sided | Fax: | Fax: | | | | | sciatica | [phone] | [phone] | | | | | History of [...] | | | DDD | Scotty C, ATHLETIC SHOE DESIGNER | [address] [place] | | | | | (degenerativ | [address] | [place], | | | | | e disc | [facility] | [place] [address] | | | | | disease), | [address] | Phone: | | | | | lumbar | B | [phone] | | | | | Chronic | [place], [place] | Fax: | | | | | left-sided | [address] | [phone] | | | | | low back | Phone: | | | | | | pain with | [phone] | | | | | | left-sided | Fax: | | | | | | sciatica | [phone] | | | | | | History [...] + + | 07/01/ | Hospital | [facility] | Scotty Galdamez, | DDD (degenerative | | 2018 | Encounter | [facility] [address] | ATHLETIC SHOE DESIGNER [address] | disc disease), | | | | [place], | [address] | lumbar; Chronic | | | | [place] [address] | [place] [address] | left-sided low back | | | | [phone] | [phone] | pain with left-sided | | | [...] + + + +---------+ + + | [place]-3 Fatty | CAPS, one capsule by | [...] | | | | | [place] [address] | | | | | | [phone] | | | | | | | | +--------+---------+ + + + | 01/01/ | Office | Cardiology | Silvia, | | | 2019 | Visit | | PAR[address] | | | | | | [place], | | | | | | [place] [address] | | | | | | [phone] | | | | | | | [...] | narrowing at L4-L5.Dictated and Signed by: Emmaneul Gibbons MD Electronically signed: | | 07/01/2018 [...]
--- OUTSIDE RECORDS SUMMARY | ~2019-12-06 | XMS | Encounter Summary ---
Demographics + + + | Address | [address] | | | [place] [address] | + + + | Home Phone [...] Team Providers + +------+ + | Care Steam Box Operator Name | Role | Phone | [...] | | | | CENTER [address] | [place], [place] | | | | | [place], [place] | [address] | | | | | [address] | | | | | | [phone] | | | +--------+ + + + [...] new doc you can try over at [facility] documented in this encounter Medications at Time [...] + + + +---------+ + + | [place]-3 Fatty | CAPS, one capsule by | [...] | | | | | | [place] [address] | | | | | | [phone] | | | | | | | | +--------+---------+ + + + | 01/01/ | Office | Cardiology | Silvia, | | | 2020 | Visit | | PARISA [address] | | | | | | [place], | | | | | | [place] [address] | | | | | | [phone] | | | | | | | | +--------+---------+ + + + documented as of this encounter Visit Diagnoses + + | Diagnosis | + + | Situational stress - Primary Other psychological or physical stress, not elsewhere | | classified | + + documented in this encounter
--- OUTSIDE RECORDS SUMMARY | ~2019-12-06 | XMS | Encounter Summary ---
Demographics + + + | Address | [address] | | | [place] [address] | + + + | Home Phone [...] Team Providers + +------+ + | Care Vp Communications Name | Role | Phone | + [...] Provider Unknown | | | | | [place], [place] | [phone] | | | | | [address] | | | | | | [phone] | | | +--------+ + + + [...] + + + +---------+ + + | [place]-3 Fatty | CAPS, one capsule by | [...] | | | | | | | #[id number], exp 07/2016 | | | | | [...] | | | | | [place] [address] | | | | | | [phone] | | | | | | | | +--------+---------+ + + + | 01/01/ | Office | Cardiology | Silvia, | | | 2019 | Visit | | [address] | | | | | | [place] | | | | | | [place] [address] | | | | | | [phone] | | | | | | | | +--------+---------+ + + + documented as of this encounter Procedures + +--------+ + + + | Procedure Name | Priori | Date/Time | Associated Diagnosis | Comments | | | ty | | | | + +--------+ + + + | CT CERVICAL THORACIC | Routin | 04/22/2012 | | Results for this | | SPINE WO CONTRAST | e | 11:32 PM | | procedure are in the | | | | PDT | | results section. | + +--------+ + + + documented in this encounter Results CT Cervical Thoracic Spine wo Contrast (04/22/2012 11:32 PM PDT) + + | [...]
--- OUTSIDE RECORDS SUMMARY | ~2019-12-06 | XMS | Encounter Summary ---
Demographics + + + | Address | [address] | | | [place] [address] | + + + | Home Phone | | + + + | Preferred Language | Unknown | + + + | Marital Status | | + + + | Pentecostalism Affiliation | [id number] | + + + [...] Team Providers + +------+ + | Care Animal Damage Control Agent Name | Role | Phone | + [...] + + | 08/24/ | Office | [facility] | [place], | Ascending thoracic | | 2018 | Visit | CARDIOLOGY [address] | [address] | aortic aneurysm | | | | [place], | [place], | ([facility]) (Primary Dx); | | | | [place] [address] | [place] [address] | Syncope, unspecified | | | | [phone] | [phone] | syncope type; | | | | | | Hypertension, | | | | | | unspecified type; | | | | | | Coronary artery | | | | | | disease involving | | | | | | tulalip coronary | | | | | | artery of tulalip | | | | | | heart [...] + documented as of this encounter Progress Janeen Rosales ARNP - 08/24/2018 10:45 AM PDTFormatting of [...] of non-critical coronary artery d isease involving tulalip coronary artery of tulalip heart without angina pectoris, essential h ypertension, [...] Preventative health care Coronary artery disease involving tulalip coronary artery of tulalip heart without angina pectoris Cannabis abuse, daily [...] by mouth Daily. 90 tabl et 1 [facility] Natural Products (OSTEO BI-FLEX/5-LOXIN ADVANCED PO) Take [...] 3RD DOSE, CALL 911 100 tablet 3 [place]-3 Fatty Acids (SALMON OIL-1000 PO) CAPS, one capsule by mouth daily twice daily ONE TOUCH DELICA LANCETS [facility] [...] Inferior leads is now present Confirmed by HIREN WINKLER, ANGELA ([id number]) on 07/28/2018 6:03:35 AM LAB RESULTS reviewed during visit today primarily from [facility]: LIPID Lab Results Component Value Date [...] PLTEX 157 04/11/2018 I reviewed records from [facility] for emergency department visit o n 07/27/2018 [...] to go back in 3 days to [place] for an attempt of ablation under general [...] He is in class II of the [place] [employer] f unctional class. There are [...] subsided. 2. Non-critical Coronary artery disease involving tulalip coronary artery of tulalip heart [facility] angina pectoris: A. Normal exercise [...] cannot completely be ruled out . D. [facility] 12/25/13, shows non critical coronary artery disease, [...] of presyncope 05/28/10 evaluated in the emergency departmen t, thought to have vasovagal symptoms. B. [...] this chart may have been created with [employer] voice recognition software. Occasi onal wrong-word or [...] [address] | | | | | | [place] [address] | | | | | | [phone] | | | | | | | | +--------+---------+ + + + | 01/01/ | Office | Cardiology | Silvia, | | | 2019 | Visit | | PARISA [address] | | | | | | [place] | | | | | | [place] [address] | | | | | | [phone] | | | | | | | [...] + + | Coronary artery disease involving tulalip coronary artery of tulalip heart without | | angina pectoris | [...]
--- OUTSIDE RECORDS SUMMARY | ~2019-12-06 | XMS | Encounter Summary ---
Demographics + + + | Address | [address] | | | [place] [address] | + + + | Home Phone [...] Team Providers + +------+ + | Care Deputy Attorney General Name | Role | Phone | + +------+ + | Kirk French MD | PCP | | + +------+ + Encounter Details +--------+ + + + + | Date | Type | Department | Care Team | Description | +--------+ + + + + | 12/24/ | [facility] | [facility] | Emmanuel Daniel MD | Pain of upper | | 2018 | Encounter | MED [facility] | [address], [place] | abdomen (Primary | | | | [address] | [address] [place], [place] | Dx); Functional | | | | [place], [place] | [address] | diarrhea; Weight | | | | [address] | | loss | | | | [phone] | | | +--------+ + + + [...] + + + | Blood Pressure | 127/85 | 12/24/2017 2:17 PM | | | | | PST | | + + + + + | Pulse | 70 | 12/24/2017 2:17 PM | | | | | PST | | + + + + + | Temperature | 36.8 C (98.2 F) | 12/24/2017 1:58 PM | | | | | PST | | + + + + + | Respiratory Rate | 14 | 12/24/2017 1:58 PM | | | | | PST | | + + + + + | Oxygen Saturation | 96% | 12/24/2017 2:17 PM | | | | | PST | | + + + + + | Inhaled Oxygen | - | - | | | Concentration | | | | + + + + + | Weight | 107 kg (235 lb 14.3 | 12/24/2017 11:45 AM | | | | oz) | PST | | + + + + + | Height | 193 cm (6' 4") | 12/24/2017 11:45 AM | | | | | PST | | + + + + + | Body Mass Index | 28.71 | 12/24/2017 11:45 AM | | | | | PST [...] + + + +---------+ + + | Kelly-3 Fatty | CAPS, one capsule by | [...] 108 | inhale 2 puffs by | | 0 | 11/23/19 | | | (90 Base) MCG/ACT | mouth every 4 hours | | [...] [facility] | | | | | | [place] [address] | | | | | | [phone] | | | | | | | | +--------+---------+ + + + | 01/01/ | Office | Cardiology | Silvia, | | | 2019 | Visit | | PARISA [address] | | | | | [address] [place], | | | | | | [place] [address] | | | | | | [phone] | | | | | | | | +--------+---------+ + + + documented as of this encounter Procedures + +--------+ + + + | Procedure Name | Priori | Date/Time | Associated Diagnosis | Comments | | | ty | | | | + +--------+ + + + | CAMPYLOBACTER | Routin | 12/24/2017 | | Results for this | | AG,QUAL | e | 1:34 PM | | procedure are in the | | | | PST | | results section. | + +--------+ + + + | CULTURE, STOOL | Routin | 12/24/2017 | | Results for this | | RESULT | e | 1:34 PM | | procedure are in the | | | | PST | | results section. | + +--------+ + + + | RESULT | Routin | 12/24/2017 | | Results for this | | (NON-ORD)[facility] | e | 1:34 PM | | procedure are in the | | | | PST | | results section. | + +--------+ + + + | SHIGATOXIN 1 AND 2 | Routin | 12/24/2017 | | Results for this | | | e | 1:34 PM | | procedure are in the | | | | PST | | results section. | + +--------+ + + + | LACTOFERRIN, FECAL, | Routin | 12/24/2017 | | Results for this | | QUAL | e | 1:34 PM | | procedure are in the | | | | PST | | results section. | + +--------+ + + + | OVA AND PARASITE | Routin | 12/24/2017 | | Results for this | | EXAMINATION | e | 1:34 PM | | procedure are in the | | | | PST | | results section. | + +--------+ + + + | CRYPTOSPORIDIUM AG | Routin | 12/24/2017 | | Results for this | | | e | 1:34 PM | | procedure are in the | | | | PST | | results section. | + +--------+ + + + | GIARDIA AG, EIA, | Routin | 12/24/2017 | | Results for this | | STOOL | e | 1:34 PM | | procedure are in the | | | | PST | | results section. | + +--------+ + + + | CLOSTRIDIUM | Routin | 12/24/2017 | | Results for this | | DIFFICILE A AND B | e | 1:34 PM | | procedure are in the | | EIA | | PST | | results section. | + +--------+ + + + | CULTURE, STOOL | Routin | 12/24/2017 | | Results for this | | | e | 1:34 PM | | procedure are in the | | | | PST | | results section. | + +--------+ + + + | HELICOBACTER PYLORI | Routin | 12/24/2017 | | Results for this | | BIOPSY | e | 1:26 PM | | procedure are in the | | | | PST | | results section. | + +--------+ + + + | EGD | Routin | 12/24/2017 | | Results for this | | | e | 1:19 PM | | procedure are in the | | | | PST | | results section. | + +--------+ + + + | COLONOSCOPY | Routin | 12/24/2017 | | Results for this | | | e | 1:17 PM | | procedure are in the | | | | PST | | results section. | + +--------+ + + + | COLONOSCOPY | | 12/24/2017 | Diarrhea, | | | | | 1:13 PM | unspecified type | | | | | PST | (R19.7), Weight | | | | | | loss, unintentional | | | | | | (R63.4), Generalized | | | | | | abdominal pain | | | | | | (R10.84), Pacemaker | | | | | | (Z95.0) Z88.5 | | | | | | allergy to narcotic | | | | | | agent | | + +--------+ + + + | EGD | | 12/24/2017 | Diarrhea, | | | | | 1:13 PM | unspecified type | | | | | PST | (R19.7), Weight | | | | | | loss, unintentional | | | | | | (R63.4), Generalized | | | | | | abdominal pain | | | | | | (R10.84), Pacemaker | | | | | | (Z95.0) Z88.5 | | | | | | allergy to narcotic | | | | | | agent | | + +--------+ + + + | SURGICAL PATHOLOGY | Routin | 12/24/2017 | | Results for this | | EXAM | e | 12:00 AM | | procedure are in the | | | | PST | | results section. | + +--------+ + + + documented in this encounter Results RESULT REFLEX (12/24/2017 1:34 PM PST) + + + + + + | Component | Value | Ref Range | Performed | Pathologist | | | | | At | Signature | + + + + + + | Result | CommentComment: No ova, | | REFERENCE | | | | cysts, or parasites | | LAB [facility] | | | | seen. | | - [facility] | | + + + + + + | Result 2 | CommentComment: Few | | REFERENCE | | | | white blood cells. | | LAB [facility] | | | | | | - [facility] | | + + + + + + + + | Specimen | + + | Stool - Stool | | specimen (specimen) | + + + + + | Narrative | Performed At | + + + | Performed at: [address] [facility] [address], | REFERENCE LAB | | [place], [place] [id number] Solder Making Laborer: William Andrew MD, Phone: | [facility] | | [phone] | | + + + + + + + + | Performing | Address | City/State/Zipcode | Phone Number | | Organization | | | | + + + + + | REFERENCE LAB | [address] | [place] [address] | [phone] | | [facility] | [address] | | | + + + + + Campylobacter Ag,Qual (12/24/2017 1:34 PM PST) + + + + + + | Component | Value | Ref Range | Performed | Pathologist | | | | | At | Signature | + + + + + + | Campylobact | Negative | Negative | [facility] | | | er AG, Qual | | | [facility] | | [...] | + + + + + | [facility] | [address] | [place] | [phone] | | [facility] | | [address] | | | - LABORATORY | | | | + + + + + Culture, Stool Result (12/24/2017 1:34 PM PST) + + + + + + | Component | Value | Ref Range | Performed | Pathologist | | | | | At | Signature | + + + + + + | Culture | No Salmonella, Shigella, | | [facility] | | | | Aeromonas, Plesiomonas, | | [facility] | | | | E. coli O157 or | | MEDICAL | | | | Yersinia isolated. | | CENTER - | | | | | | LABORATORY | | + + + + + + | Culture | 4+ Usual FloraComment: | | [facility] | | | | Consistent with usual | | [facility] | | | | enteric michelle. | | MEDICAL | | | | [...] + | [facility] | [address] | [place] | [phone] | | [facility] | | [address] | | | - LABORATORY | | | | + + + + + Shigatoxin 1 and 2 (12/24/2017 1:34 PM PST) + + + + + + | Component | Value | Ref Range | Performed | Pathologist | | | | | At | Signature | + + + + + + | Shigatoxin | Negative | Negative | [facility] | | | 1 | | | [facility] | | | | | | MEDICAL | | | | | | CENTER - | | | | | | LABORATORY | | + + + + + + | Shigatoxin | Negative | Negative | [facility] | | | 2 | | | [facility] | [address] | [place] | [phone] | | [facility] | | [address] | | | - LABORATORY | | | | + + + + + Ova and Parasite Examination (12/24/2017 1:34 PM PST) + + + + + [...] + + | Performed at: 01 - [facility] [address], | REFERENCE LAB | | [place], [place] [id number] Solder Making Laborer: William Andrew MD, Phone: | [facility] | | [phone] | | + + + + + + + + | Performing | Address | City/State/Zipcode | Phone Number | | Organization | | | | + + + + + | REFERENCE LAB | [address] | [place] [address] | [phone] | | [facility] | [address] | | | + + + + + Lactoferrin, Fecal, Qual (12/24/2017 1:34 PM PST) + + + + + [...] + | [facility] | [address] | [place] | [phone] | | [facility] | | [address] | | | - LABORATORY | | | | + + + + + Giardia Ag, EIA, Stool (12/24/2017 1:34 PM PST) + + + + + + | Component | Value | Ref Range | Performed | Pathologist | | | | | At | Signature | + + + + + + | Giardia | Negative | Negative | [facility] | | | Antigen, | | | [facility] | | | Stool | | | [...] ST. | [address] | [place] | [phone] | | [facility] | | [address] | | | - LABORATORY | | | | + + + + + Cryptosporidium Ag (12/24/2017 1:34 PM PST) + + + + + + | Component | Value | Ref Range | Performed | Pathologist | | | | | At | Signature | + + + + + + | Cryptospori | Negative | Negative | [facility] | | | dium | | | [facility] | | | Antigen | | | [...] [address] | [place] | [phone] | | [facility] | | [address] | | | - LABORATORY | | | | + + + + + Clostridium difficile A and B EIA (12/24/2017 1:34 PM PST) + + + + + + | Component | Value | Ref Range | Performed | Pathologist | | | | | At | Signature | + + + + + + | Clostridium | NegativeComment: | Negative | [facility] | | | Difficile | Negative for toxigenic | | [facility] | | | [facility] Antigen | Clostridium [...] + + | Performing | Address | City/State/[facility] | Phone Number | | Organization | | | | + + + + + | [facility] | [address] | [place] | [phone] | | [facility] | | [address] | | | - LABORATORY | | | | + + + + + Helicobactor pylori Biopsy (12/24/2017 1:26 PM PST) + + + + + + | Component | Value | Ref Range | Performed | Pathologist | | | | | At | Signature | + + + + + + | Helicobacte | Negative | Negative | [facility] | | | r pylori Ag | | | [facility] | | | | | | MEDICAL | | | | | | CENTER - | | | | | | LABORATORY | | + + + + + + + + | Specimen | + + | Tissue - Entire | | pyloric antrum (body | | structure) | + + + + + + + | Performing | Address | City/State/Zipcode | Phone Number | | Organization | | | | + + + + + | [facility] | [address] | [place], [place] | [phone] | | [facility] | | [address] | | | - LABORATORY | | | | + + + + + EGD (12/24/2017 1:19 PM PST) + + | Specimen | + + | | + + + + -+ | Narrative | Performed At | + + -+ | | [facility] | | GastroenterologyPatient Name: Moe Venegas Date: 12/24/2017 | [facility] | | 1:19 PMMRN: [id number] #: [id number] of : | | | 9Admit Type: AmbulatoryAge: 57Room: [facility] 01Gender: MaleNote | | | Status: FinalizedAttending MD: Emmanuel Daniel , [facility]ITALrocedure: | | | Upper GI endoscopyIndications: Diarrhea, Weight | | | lossProviders: Emmanuel Daniel MD, Maria Isabel Morris RN, | | | Kim Hicks, Shrimp Boat Captain, [place] | | | Sapna Barakat MD (Anesthesia Staff)Referring MD: Kirk Valdes | | | Manolo (Referring MD)Medicines: Propofol per | | | AnesthesiaComplications: No immediate complications. Estimated | | | blood loss: Minimal.Procedure: Pre-Anesthesia Assessment: | | | - Prior to the procedure, a History and Physical was performed, and | | | patient medications, allergies and sensitivities were reviewed. | | | The patient's tolerance of previous anesthesia was reviewed. | | | - Prior to the procedure, a History and Physical was performed, | | | and patient medications and allergies were reviewed. The | | | patient is competent. The risks and benefits of the procedure | | | and the sedation options and risks were discussed with the | | | patient. All questions were answered and informed consent was | | | obtained. Patient identification and proposed procedure were | | | verified by the physician, the nurse, the anesthesiologist and | | | the geothermal technician in the endoscopy suite. Mental Status | | | Examination: alert and oriented. Airway Examination: normal | | | oropharyngeal airway and neck mobility and Mallampati Class II (the | | | uvula but not tonsillar pillars visualized). Prophylactic | | | Antibiotics: The patient does not require prophylactic | | | antibiotics. Prior Anticoagulants: The patient has taken no | | | previous anticoagulant or antiplatelet agents. ASA Grade | | | Assessment: III - A patient with severe systemic disease. After | | | reviewing the risks and benefits, the patient was deemed in | | | satisfactory condition to undergo the procedure. The anesthesia | | | plan was to use monitored anesthesia care (MAC). Immediately | | | prior to administration of medications, the patient was re-assessed | | | for adequacy to receive sedatives. The heart rate, respiratory | | | rate, oxygen saturations, blood pressure, adequacy of pulmonary | | | ventilation, and response to care were monitored throughout | | | the procedure. The physical status of the patient was | | | re-assessed after the procedure. - After reviewing the risks and | | | benefits, the patient was deemed in satisfactory condition to | | | undergo the procedure. - Using IV propofol under the supervision | | | of an anesthesiologist was determined to be medically | | | necessary for this procedure based on severe comorbidity | | | (greater than ASA Grade II), patient's history of sleep apnea | | | and patient's history of drug or alcohol abuse. - Immediately | | | prior to administration of medications, the patient was | | | re-assessed for adequacy to receive sedatives. - The heart rate, | | | respiratory rate, oxygen saturations, blood pressure, adequacy | | | of pulmonary ventilation, and response to care were monitored | | | throughout the procedure. - The physical status of the patient | | | was re-assessed after the procedure. After obtaining informed | | | consent, the endoscope was passed under direct vision. | | | Throughout the procedure, the patient's blood pressure, pulse, | | | and oxygen saturations were monitored continuously. The Endoscope was | | | introduced through the mouth, and advanced to the third part of | | | duodenum. The upper GI endoscopy was accomplished without | | | difficulty. The patient tolerated the procedure well.Findings: | | | The cricopharyngeus, upper third of the esophagus, middle third | | | of the esophagus and lower third of the esophagus were normal. | | | The Z-line was regular and was found 40 cm from the incisors. | | | The entire examined stomach was normal. Biopsies were taken with a | | | cold forceps for Helicobacter pylori testing using CLOtest. | | | Verification of patient identification for the specimen was | | | done. Estimated blood loss was minimal. The duodenal | | | bulb, first portion of the duodenum, second portion of the | | | duodenum, area of the papilla and third portion of the duodenum were | | | normal. The retroflexed view confirmed previous | | | findings,Impression: - Normal cricopharyngeus, upper third of | | | esophagus, middle third of esophagus and lower third of | | | esophagus. - Z-line regular, 40 cm from the incisors. - | | | Normal stomach. Biopsied. - Normal duodenal bulb, first portion | | | of the duodenum, second portion of the duodenum, area of the | | | papilla and third portion of the duodenum. - The retroflexed | | | view confirmed previous findings,Recommendation: - Patient has a | | | contact number available for emergencies. The signs and | | | symptoms of potential delayed complications were discussed with the | | | patient. Return to normal activities tomorrow. Written discharge | | | instructions were provided to the patient. - Discharge | | | patient to home (ambulatory). - Resume previous diet today. | | | - Perform a colonoscopy today. - Continue present | | | medications. - Await pathology results. - Return to | | | primary care physician as previously scheduled. - Telephone GI | | | clinic for pathology results in 1 week.Emmanuel Daniel MD12/24/2017 | | | 2:01:38 PMThis report has been signed electronically.Number of | | | Addenda: 0Note Initiated On: 12/24/2017 1:19 PMTotal Procedure Duration: | | | 0 hours 5 minutes 9 seconds Scope In: 1:26:04 PMScope Out: 1:31:13 PM | | | [facility], [address] | | | [place] [address] | | | - Discharge patient to home (ambulatory). | | | - Resume previous diet today. | | | - Perform a colonoscopy today. | | | - Continue present medications. | | | - Await pathology results. | | | - Return to primary care physician as previously scheduled. | | | - Telephone GI clinic for pathology results in 1 week. | | |Emmanuel Daniel MD | | |12/24/2017 2:01:38 PM | | |This report has been signed electronically. | | |Number of Addenda: 0 | | |Note Initiated On: 12/24/2017 1:19 PM | | |Total Procedure Duration: 0 hours 5 minutes 9 seconds | | |Scope In: 1:26:04 PM | | |Scope Out: 1:31:13 PM | | | [facility], [address], [place], [place] | | | [address] | | + + -+ + +---------+ + + | Performing | Address | City/State/Zipcode | Phone Number | | Organization | | | | + +---------+ + + | [facility] | | | | + +---------+ + + COLONOSCOPY (12/24/2017 1:17 PM PST) + + | Specimen | + + | | + + + + -+ | Narrative | Performed At | + + -+ | | [facility] | | GastroenterologyPatient Name: Moe SanchezProcedure Date: 12/24/2017 | [facility] | | 1:17 PMMRN: [id number] #: [id number] of : | | | 9Admit Type: AmbulatoryAge: 57Room: [facility] 01Gender: MaleNote | | | Status: FinalizedAttending MD: Emmanuel Daniel , [facility]ITALrocedure: | | | ColonoscopyIndications: Clinically significant diarrhea of | | | unexplained originProviders: Emmanuel Daniel MD, Joanne | | | Arturo RN, Kim Hicks, Shrimp Boat Captain, | | | Jarett Barakat MD (Anesthesia Staff)Referring MD: | | | Kirk French (Referring )Medicines: Propofol | | | per AnesthesiaComplications: No immediate complications. | | | Estimated blood loss: Minimal.Procedure: Pre-Anesthesia | | | Assessment: - Prior to the procedure, a History and Physical was | | | performed, and patient medications, allergies and | | | sensitivities were reviewed. The patient's tolerance of [...] | | | the anesthesiologist and the geothermal technician in the endoscopy suite. | | [...] ASA Grade II), patient's | | | history of sleep apnea and patient's history of drug or alcohol | | | abuse. - Immediately prior to administration of medications, | | | the patient was re-assessed for adequacy to receive sedatives. | | | - The heart rate, respiratory rate, oxygen saturations, blood | | | pressure, adequacy of pulmonary ventilation, and response to | | | care were monitored throughout the procedure. - The | | | physical status of the patient was re-assessed after the procedure. | | | After I obtained informed consent, the scope was passed under | | | direct vision. Throughout the procedure, the patient's blood | | | pressure, pulse, and oxygen saturations were monitored | | | continuously. The Colonoscope was introduced through the anus | | | and advanced to 15 cm into the ileum. The colonoscopy was | | | performed without difficulty. The patient tolerated the | | | procedure well. The quality of the bowel preparation was | | | excellent.Findings: The terminal ileum, ileocecal valve and | | | ileum, 10 cm from the ileocecal valve contained two | | | non-bleeding erosions. No stigmata of recent bleeding were | | | seen. Biopsies were taken with a cold forceps for histology. | | | Verification of patient identification for the specimen was | | | done. Estimated blood loss was minimal. The ascending colon | | | appeared normal. Biopsies for histology were taken with a cold | | | forceps from the ascending colon and descending colon for | | | evaluation of microscopic colitis. Verification of patient | | | identification for the specimen was done. Estimated blood loss was | | | minimal. A diminutive polyp was found in the proximal | | | ascending colon. The polyp was sessile. Biopsies were taken | | | with a cold forceps for histology. Verification of patient | | | identification for the specimen was done. Estimated blood loss | | | was minimal. The colon (entire examined portion) appeared | | | normal. Biopsies for histology were taken with a cold forceps | | | from the ascending colon and descending colon for evaluation of | | | microscopic colitis. Verification of patient identification | | | for the specimen was done. Estimated blood loss was minimal. | | | The exam was otherwise without abnormality. The retroflexed | | | view of the distal rectum and anal verge was normal and showed | | | no anal or rectal abnormalities.Impression: - Two erosions in | | | the terminal ileum, at the ileocecal valve and in the ileum, 10 | | | cm from the ileocecal valve. Biopsied. - The ascending colon is | | | normal. Biopsied. - One diminutive polyp in the proximal | | | ascending colon. Biopsied. - The entire examined colon is | | | normal. Biopsied. - The examination was otherwise normal. | | | - The distal rectum and anal verge are normal on retroflexion | | | view.Recommendation: - Patient has a contact number available | | | for emergencies. The signs and symptoms of potential delayed | | | complications were discussed with the patient. Return to normal | | | activities tomorrow. Written discharge instructions were | | | provided to the patient. - Discharge patient to home | | | (ambulatory). - Resume previous diet today. - Continue | | | present medications. - Await pathology results. - Repeat | | | colonoscopy for surveillance based on pathology results. - | | | Return to primary care physician as previously scheduled. - | | | Telephone GI clinic if symptomatic.Emmanuel Daniel MD12/24/2017 2:06:33 | | | PMThis report has been signed electronically.Number of Addenda: 0Note | | | Initiated On: 12/24/2017 1:17 PMScope Withdrawal Time: 0 hours 9 minutes | | | 57 seconds Total Procedure Duration: 0 hours 16 minutes 2 seconds | | | Scope In: 1:32:55 PMScope Out: 1:48:57 PM [facility] | | | [facility], [address] [place] [address] | | | [phone] | | | - Await pathology results. | | | - Repeat colonoscopy for surveillance based on pathology results. | | | - Return to primary care physician as previously scheduled. | | | - Telephone GI clinic if symptomatic. | | |Emmanuel Daniel MD | | |12/24/2017 2:06:33 PM | | |This report has been signed electronically. | | |Number of Addenda: 0 | | |Note Initiated On: 12/24/2017 1:17 PM | | |Scope Withdrawal Time: 0 hours 9 minutes 57 seconds | | |Total Procedure Duration: 0 hours 16 minutes 2 seconds | | |Scope In: 1:32:55 PM | | |Scope Out: 1:48:57 PM | | | [facility], [facility] [address] [place], [place] | | | [address] | | + + -+ + +---------+ + + | Performing | Address | City/State/Zipcode | Phone Number | | Organization | | | | + +---------+ + + | [facility] | | | | + +---------+ + + Surgical Pathology Exam (12/24/2017 12:00 AM PST) + + | Specimen | + + | | + + + + + | Narrative | Performed At | + + + | SPECIMEN(S): A DUODENAL BIOPSY SPECIMEN(S): B LEFT COLON BIOPSY | [facility] | | SPECIMEN(S): C TERMINAL ILEUM SPECIMEN(S): D ASCENDING COLON BIOPSY | [facility] | | SPECIMEN SOURCE: A. DUODENAL BIOPSY B. LEFT COLON BIOPSY C. | | | TERMINAL ILEUM D. ASCENDING COLON BIOPSY CLINICAL HISTORY: R19.7 | | | (diarrhea, unspecified), R63.4 (abnormal weight loss), R10.84 | | | (generalized abdominal pain), Z95.0 (presence of cardiac pacemaker), | | | Z88.5 (Allergy status to narcotic agent status) MICROSCOPIC | | | DESCRIPTION: Histologic sections of all submitted blocks are examined | | | by light microscopy. These findings, together with the gross | | | examination, support the pathologic diagnosis. FINAL PATHOLOGIC | | | DIAGNOSIS: A. Duodenal biopsy: - Chronic duodenitis with mild | | | activity, Rohan gland hyperplasia, gastric foveolar metaplasia and | | | reactive epithelial changes. - Negative for Helicobacter-type | | | organisms by immunohistochemical stain. B. Colon, left, biopsy: - | | | Fragments of colonic mucosa with no significant diagnostic | | | abnormality. C. Small bowel, terminal ileum, biopsy: - | | | Fragments of small bowel mucosa with no significant diagnostic | | | abnormality. D. Colon, ascending, biopsy: - Fragments of | | | colonic mucosa with focal adenomatous change. CLR:[facility]:C2NR | | | GROSS DESCRIPTION: Received in four parts. A. Received in | | | formalin labeled "Moe Sanchez, A." and labeled "duodenal bx" on | | | the requisition are six pink-lin tissue fragments measuring from | | | 0.3-0.8 cm submitted, all in (A1). B. Received in formalin labeled | | | "Sharee Nelson." and labeled "B, left colon bx" on the | | | requisition are five pink-lin tissue fragments measuring from 0.2-09.9 | | | cm, submitted, all in (B1). C. Received in formalin labeled | | | "Moe Sanchez D." and labeled "C, bx TI" on the requisition are | | | six matias-pink and lin colored tissue fragments measuring from 0.5 cm, | | | submitted, all in (C1). D. Received in formalin labeled "Moe | | | [facility]" and labeled "D. ascending colon bx" on the | | | requisition are nine pink-lin tissue fragments measuring from 0.15-0.5 | | | cm, submitted, all in (D1). ka:CLR:[facility] ADDITIONAL NOTES: | | | Immunohistochemical studies were performed on this case with the | | | appropriate positive controls that react as expected. This test was | | | developed and its performance characteristics determined by [facility] | | | [employer]. It has not been cleared or approved by the U.S. Food | | | and Drug Administration. The FDA has determined that such clearance | | | or approval is not necessary. This test is used for clinical | | | purposes. It should not be regarded as investigational or for | | | research. [facility] is certified under the Clinical | | | Laboratory Improvement Amendments of 1988 (CLIA) as qualified to | | | perform high complexity clinical laboratory testing. This assay | | | has not been validated for specimens that have been decalcified. | | | PERFORMING LABORATORY: Tissue processing and slide preparation were | | | performed by [facility], [facility] [address] [facility] | | | [place] [address] (Cloth Tester: Evan Frausto M.D. CLIA#: | | | [id number]). Professional interpretation was performed by [facility] | | [employer], [address], [place] [address] | | | (Cloth Tester: Evan Frausto M.D.; CLIA#: [id number]). | | | Diagnostician: Rafael Bales MD Pathologist Electronically | | | Signed 12/28/2017 | | + + + + +---------+ + + | Performing | Address | City/State/Zipcode | Phone Number | | Organization | | | | + +---------+ + + | [facility] | | | | | [facility] | | | | + +---------+ + + documented in this encounter Visit Diagnoses + + | Diagnosis | + + | Pain of upper abdomen - Primary Abdominal pain, other specified site | + + | Functional diarrhea | + + | Weight loss Loss of weight | + + documented in this encounter Administered Medications + +--------+---------+------+------+------+ | Medication Order | MAR | Action | Dose | Rate | Site | | | Action | Date | | | | + +--------+---------+------+------+------+ + +---+ | albuterol 2.5 mg/3 mL nebulizer | | | solution 2.5 mg 2.5 mg, | | | Nebulization, ONCE PRN, Wheezing, | | | Starting Wed12/24/17 at 1359, For | | | 1 dose, Notify anesthesia if | | [...] ONCE PRN, Wheezing, | | | Starting 12/24/17 at 1359, For | | | 1 dose, Notify anesthesia if | | [...] glucose < 50, | | | Starting 12/24/17 at 1359, | | | Repeat in 15 min [...] | | blood glucose < 50, Starting Fri | | | 12/24/17 at 1359, Give over 2 min. | | | Repeat in 15 min if blood | | | glucose remains < 70 mg/dL. | | | Repeat blood glucose in 30 min | | | once blood glucose > 70., | | | Recovery/Phase I | | + +---+ | | | + +---+ + +---------+ +---+---+---+ | lactated ringers (LR) infusion | New Bag | 12/24/19 | | | | | at 100 mL/hr, Intravenous, | | 18 12:15 | | | | | CONTINUOUS, Starting 12/24/17 | | PM PST | | | | | at 1300, Pre-op | | | | | | + +---------+ +---+---+---+ + +---+ | | | + +---+ | ondansetron (ZOFRAN) injection | | | 4 mg 4 mg, Oral, EVERY 4 HOURS | | | PRN, Nausea, Vomiting, Starting | | | 12/24/17 at 1359, | | | Recovery/Phase I | | + +---+ | | | + +---+ | ondansetron (ZOFRAN) injection | | | 4 mg 4 mg, Intravenous, ONCE | | | PRN, Nausea, Starting 12/24/17 | | | at 1359, For 1 dose, | | | Recovery/Phase I | | + +---+ | | | + +---+ documented in this encounter
--- OUTSIDE RECORDS SUMMARY | ~2019-12-06 | XMS | Encounter Summary ---
Demographics + + + | Address | [address] | | | [place] [address] | + + + | Home Phone | | + + + | Preferred Language | Unknown | + + + | Marital Status | | + + + | Congregation Affiliation | 1013 | + + + | Race | Unknown | + + + | Ethnic Group | Unknown | + + + Author + + + | Author | [facility] | | | and [place] | + + + | Organization | [facility] | | | [...] Team Providers + +------+ + | Care Medical Program Specialist Name | Role | Phone | [...] + + | 09/05/ | Office | [facility] | Geri Angel, | SINUS BRADYCARDIA | | 2012 | Visit | CARDIOLOGY [address] | CAREER ORIENTATION TEACHER [address] | (Primary Dx); | | | | [place], | [place], [place] | Symptomatic PVCs; | | | | [place] [address] | [address] | Hypertension; | | | | [phone] | | Hyperlipidemia | +--------+---------+ + + [...] and/or ref er you to electrophysiology in [place]. 3. Return in 3 months, or sooner [...] he did not followup with electrophysiology in [place], so he has remained on diltiaze m [...] Family Status Relation Status Age Mother 62 UT Father Alive Unknown health Brother Alive Sister [...] by mouth Ken y. 30 tablet 6 [place]-3 Fatty Acids (SALMON OIL-1000 PO) Active CAPS, [...] Sanchez Date: September 05, 2013 : 1960 Forestry Hunter: PARISA Velazquez Device Train Inspector: Bring Light Sense (mV) Impedance (?) Capture (V) Capture (ms) A Lead 4-5.6 417 1.5 0.12 RV Lead >31.36 533 2.0 0.09 LV Lead Battery Impedance (?): 452 Battery Voltage (V): 2.79 MI Interval (ms): 162 AR Interval (ms): 245 VA Conduction: Mode Switch Events: 1 % of time: <0.1 -CHEMIST ENZYMES: <0.1% AP-CHEMIST ENZYMES: 0.1% -VS: 22.7% AP-VS: 77.1% CHEMIST ENZYMES: Magnetic Rate: 85 LINDA: 65 LEAH: Current [...] to go back in 3 days to [place] for an attempt of ablation under general [...] He is upgraded to class I of [place] 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 There are no [...] he would like to see electrophysiology in [place] rather than [place] as he paulino s family there, if [...] made to ensure accuracy; however, inadvertent computerized jerker errors may be pre sent. Electronically signed [...] | | | | | [place] [address] | | | | | | [phone] | | | | | | | | +--------+---------+ + + + | 01/01/ | Office | Cardiology | Silvia | | 2019 | Visit | | PARISA Vernon [address] | | | | | | [place], | | | | | | [place] [address] | | | | | | [phone] | | | | | | | | +--------+---------+ + + + + + +--------+ + [...] | + + | Randa Melo - 09/05/2013 12:00 AM PDT | + [...]
--- OUTSIDE RECORDS SUMMARY | ~2019-12-06 | XMS | Encounter Summary ---
Demographics + + + | Address | [address] | | | [place] [address] | + + + | Home Phone | | + + + | Preferred Language | Unknown | + + + | Marital Status | | + + + | Episcopalian Affiliation | 1013 | + + + | Race | Unknown | + + + | Ethnic Group | Unknown | + + + Author + + + | Author | [facility] | | | and [place] | + + + | Organization | [facility] | | | [...] Team Providers + +------+ + | Care Drapery Counselor Name | Role | Phone | [...] | SR | | | | | [phone] | | | +--------+ + + + [...] [address] | | | | | | [address] | | | | | | [place] [address] | | | | | | [phone] | | | | | | | | +--------+---------+ + + + | 01/01/ | Office | Cardiology | Silvia, | | | 2019 | Visit | | PARISA Vernon [address] | | | | | | [place], | | | | | | [place] [address] | | | | | | [phone] | | | | | | | [...]
--- OUTSIDE RECORDS SUMMARY | ~2019-12-06 | XMS | Encounter Summary ---
Demographics + + + | Address | [address] | | | [place] [address] | + + + | Home Phone | | + + + | Preferred Language | Unknown | + + + | Marital Status | | + + + | Yazdanism Affiliation | 1013 | + + + | Race | Unknown | + + + | Ethnic Group | Unknown | + + + Author + + + | Author | [facility] | | | and [place] | + + + | Organization | [facility] | | | [...] Providers + +------+ + | Care Director Financial Planning Name | Role | Phone | + +------+ + | Kirk French MD | PCP | | + +------+ + Reason for Visit +--------+ + | Reason | Comments | +--------+ + | Other | | +--------+ + Encounter Details +--------+ + + + + | Date | Type | Department | Care Team | Description | +--------+ + + + + | 05/08/ | Telephone | [facility] | Emmanuel Daniel MD | Other | | 2019 | | GASTROENTEROLOGY | [address], [place] | | | | | [address] [place] | [address] [place], [place] | | | | | [address] [place], [place] | [address] | | | | | [address] | | | | | | [phone] | | | +--------+ + + + [...] | | | | | [place] [address] | | | | | | [phone] | | | | | | | | +--------+---------+ + + + | 01/01/ | Office | Cardiology | Silvia, | | | 2019 | Visit | | PARISA Vernon [address] | | | | | | [place] | | | | | | [place] [address] | | | | | | [phone] | | | | | | | | +--------+---------+ + + + documented as of this encounter Visit Diagnoses Not on filedocumented in this encounter"
--- OUTSIDE RECORDS SUMMARY | ~2019-12-06 | XMS | Encounter Summary ---
Demographics + + + | Address | [address] | | | [place] [address] | + + + | Home Phone [...] Team Providers + +------+ + | Care Technical Inspector Name | Role | Phone | [...] | | | | CENTER [address] | [address] | (Primary Dx) | | | | [place], [place] | [place], [place] | | | | | [address] | [address] | | | | | [phone] | | | +--------+ + + + [...] + + + +---------+ + + | Gray[place]-3 Fatty | CAPS, one capsule by | [...] | | | | | | [place] [address] | | | | | | [phone] | | | | | | | | +--------+---------+ + + + | 01/01/ | Office | Cardiology | Silvia, | | | 2019 | Visit | | PARISA Vernon [address] | | | | | | [place] | | | | | | [place] [address] | | | | | | [phone] | | | | | | | | +--------+---------+ + + + + +------+--------+ + + [...] | | n - | | | // | | | 2018 | | | 10:42 | | | [...] | | | FICATI | | | ON?07/ | | | 31/ | | | 8 | | | 10:39? | | | HODGEN | | | , | | | FREDER | | | ICK | | | W?MRN: | | | | | | [id number] | | | [id number] | | | his | | | [...] | | | ent/60 | | | [id number] | | | -5586- | | | [...] | | | St. | | | [place] | | | y | | | [...] | | | ext. | | | [address] | | | or go | | [...] | | | M.D. | | | Track Walker | | | al | | | [...] | | | | | | [employer] | | | | | [...] [address] | [place] | [phone] | | [facility] | | [address] | | | - LABORATORY | | [...] | | Time | | seconds | [facility] | | | | | | MEDICAL | | | | | | CENTER - | | | | | | LABORATORY | | + + + + + + | INR | 0.91Comment: Usual Oral | 0.90 - 1.10 | [facility] | | | | Anticoagulation Range: | | [facility] | | | | 2.0 - 3.0High [...] [address] | [place] | [phone] | | [facility] | | [address] | | | - LABORATORY | | [...] + | [facility] | [address] | [place] | [phone] | | [facility] | | [address] | | | - LABORATORY | | [...] | | | FILTRATION | mL/min/1.73m2 | [facility] | | | ESTONIAN | RATE,ESTIMATED | | MEDICAL | | | | mL/min/1.26u8Uuxe than | | CENTER - | | [...] 3.9 | 3.2 - 5.0 g/dL | [facility] | | | | | [...] | appended report. These | | [facility] | | | | results have been [...] [address] | [place] | [phone] | | [facility] | | [address] | | | - LABORATORY | | [...] | | Neutrophils | | K/uL | . [facility] | | | | | | MEDICAL | | | | | | CENTER - | | | | | | LABORATORY | | + +-------+ + + + | Absolute | 2.10 | 0.60 - 3.20 | [facility] | | | Lymphocytes | | K/uL | [facility] | | | | | | MEDICAL [...] | 0.10 | 0.00 - 0.10 | [facility] | | | Basophils | | K/uL | [facility] | | | | | [...] [address] | [place] | [phone] | | [facility] | | [address] | | | - LABORATORY | | | | + + + + + B Type Natriuretic Peptide (06/21/2018 11:44 AM PDT) + +-------+ + + + | Component | Value | Ref Range | Performed | Pathologist | | | | | At | Signature | + +-------+ + + + | BNP | 42 | <100 pg/mL | [facility] | | [...] ST. | [address] | [place], [place] | [phone] | | [facility] | | [address] | | | - LABORATORY | | [...] by | | | | | | SYNDI CAGLE MD | | | | | | ([phone]) on 06/22/2018 | | | | | [...]
--- OUTSIDE RECORDS SUMMARY | ~2019-12-06 | XMS | Encounter Summary ---
Demographics + + + | Address | [address] | | | [place] [address] | + + + | Home Phone [...] Team Providers + +------+ + | Care Emergency Department Nurse Name | Role | Phone | + [...] Description | +--------+--------+ + + + | 10/13/ | Refill | [facility] [place] | Geri Angel, | Medication Refill | | 2015 | | CARDIOLOGY [address] | SALES AND SERVICE CONSULTANT [address] | | | | | [place], | [place], [place] | | | | | [place] [address] | [address] | | | | | [phone] | | | +--------+--------+ + + + [...] | | | | | [place] [address] | | | | | | [phone] | | | | | | | | +--------+---------+ + + + | 01/01/ | Office | Cardiology | Silvia, | | | 2019 | Visit | | PARISA Vernon [address] | | | | | | [place], | | | | | | [place] [address] | | | | | | [phone] | | | | | | | | +--------+---------+ + + + documented as of this encounter Visit Diagnoses Not on filedocumented in this encounter"
--- OUTSIDE RECORDS SUMMARY | ~2019-12-06 | XMS | Encounter Summary ---
Demographics + + + | Address | [address] [place] [address] [address] | | | [place] [address] | + + + | Home Phone | | + + + | Preferred Language | Unknown | + + + | Marital Status | | + + + | Jewish Affiliation | Unknown | + + + | Race | White | + + + | Ethnic Group | Not or | + + + Author + + + | Author | [facility] | + + + | Organization | [facility] | + + + | Address | Unknown | + + + | Phone | Unavailable | + + + Support + + + + + | Name | Relationship | Address | Phone | + + + + + | Rachel Valencia | ELIEZER | [place] | | | | | [address] | | + + + + + Care Team Providers + +------+ + | Care Content Checker Name | Role | Phone | [...] | | | | | [facility]ST[facility]I | [place], [place] | for Health | | | | | C | [address] | and Healing, | | | | | ECHOCARDIOGR | Phone: | Building [address] | | | | | AM, ADULT | [phone] | [place], [place] | | | | | | Fax: | [address] | | | | | | [phone] | Phone: | | | | | | | [phone] | +--------+--------+ + + + + Reason [...] | | | | | | | [place] [address] | | | | | | | Phone: | | | | | | | [phone] | | | | | | | Fax: | | | | | | | [phone] | | +--------+--------+ + + + + Encounter Details +--------+---------+ + + + | Date | Type | Department | Care Team | Description | +--------+---------+ + + + | 02/03/ | Office | Cardiology General | Arlette Drew, | Chest pain (Primary | | 2010 | Visit | at [facility] [address] | MD | Dx); Bradycardia; | | | | [address] Mailcode: | | Pacemaker | | | | [address] | | | | | | Health and Healing, | | | | | | Building | | | | | | Floor [place], [place] | | | | | | [address] | | | | | | [phone] | | | +--------+---------+ + + + [...] per Dr. Drew's note. Farooq Jamil DO Carrier Driver Clinical child life specialist/ Division of Cardiovascular Medicine Yajaira Borges, [place] - 02/09/2011 12:59 PM PDT PACEMAKER HISTORY Primary Care Provider: Darion Holden DO Senior Animator: Arlette Drew MD Moe Sanchez is a [...] chamber permanent pacemaker implantation on 06/14/09 in [place], Chronic smoker, mild DIDIER, bip olar disorder with anxiety who presents for second opinion regarding his syncopal episodes. Pt. started noticing dizzy spells and episodes of syncope about 3 years ago , pacemaker was put at the recommendation of Senior Animator Dr. Singletary from [place]. [place]. Pt. states lala bhatti was put>1 [...] form tilt table testing but NA at [facility] May need to involve endocrine and [...] Dr. Omero DREW MD CARDIOLOGY - GENERAL [address] Mailcode: Ch[facility], [address] [facility] [address] documented in this en counter Plan [...] ([facility] [facility]) | [facility] | | [facility] [address] [place] [facility] | REGIONAL | | [place] [address] | LABORATORY | + + + + + + + + | Performing | Address | City/State/Zipcode | Phone Number | | Organization | | | | + + + + + | [facility] | [address] | [place] [address] | | | LABORATORY | | | | + + + + + CORTISOL, SERUM (02/03/2011 4:08 PM PDT) + + + + + + | Component | Value | Ref Range | Performed | Pathologist | | | | | At | Signature | + + + + + + | CORTISOL, | 7.3 | ug/dl | [facility] | | | TOTAL SERUM | | [...] RLB ([facility] [facility]) | | | [place] [address] | | | [place] [address] | | + + + + + + + + | Performing | Address | City/State/Zipcode | Phone Number | | Organization | | | | + + + + + | [facility] | [address] | [place] [address] | | | LABORATORY | | | [...] | | | DEPARTMENT | | | [facility] | | | OF | | | [...] | + + + + + | [facility] DEPARTMENT | [address] | [place] [address] | | | PATHOLOGY | [address] [...] DEPT OF | [address] | [place], [place] | | | CARDIOLOGY | [address] | [address] | | + + + + + [...] DEPT OF | [address] | [place], [place] | | | CARDIOLOGY | [address] | [address] | | + + + + + [...] + + + | Please click | [facility] DEPT OF | | on view image for the detailed interpretation from [employer] results. | CARDIOLOGY | + + + + + + + + | Performing | Address | City/State/Zipcode | Phone Number | | Organization | | | | + + + + + | [facility] DEPT OF | [address] | [place], [place] | | | CARDIOLOGY | [address] | [address] | | + + + + + documented in this encounter Visit Diagnoses + + | Diagnosis | + + | Chest pain - Primary Chest pain, unspecified | + + | Bradycardia Other specified cardiac dysrhythmias | + + | Pacemaker Cardiac pacemaker in situ | + + documented in this encounter
--- OUTSIDE RECORDS SUMMARY | ~2019-12-06 | XMS | Encounter Summary ---
Demographics + + + | Address | [address] | | | [place] [address] | + + + | Home Phone [...] Team Providers + +------+ + | Care Perforator Loader Name | Role | Phone | + +------+ + | Kirk French MD | PCP | | + +------+ + Encounter Details +--------+ + + + + | Date | Type | Department | Care Team | Description | +--------+ + + + + | 03/15/ | Hospital | [facility] MEDICAL | Conversion | | | 2017 | Encounter | [facility] XRAY | Transaction, | | | | | [address] | Provider Unknown | | | | | [address] [place] | [phone] | | | | | [address] | | | | | | [phone] | Kirk French | | | | | | MD Brea [address] | | | | | | [address] [place], | | | | | | [place] [address] | | | | | | [phone] | | | | | | | [...] + + + +---------+ + + | [place]-3 Fatty | CAPS, one capsule by | [...] | | | | | [place] [address] | | | | | | [phone] | | | | | | | | +--------+---------+ + + + | 01/01/ | Office | Cardiology | Silvia, | | | 2020 | Visit | | PARISA Vernon [address] | | | | | | [place], | | | | | | [place] [address] | | | | | | [phone] | | | | | | | | +--------+---------+ + + + documented as of this encounter Visit Diagnoses Not on filedocumented in this encounter"
--- OUTSIDE RECORDS SUMMARY | ~2019-12-06 | XMS | Encounter Summary ---
Demographics + + + | Address | [address] | | | [place] [address] | + + + | Home Phone | | + + + | Preferred Language | Unknown | + + + | Marital Status | | + + + | Cheondoism Affiliation | 1013 | + + + | Race | Unknown | + + + | Ethnic Group | Unknown | + + + Author + + + | Author | [facility] | | | and [place] | + + + | Organization | [facility] | | | [...] Team Providers + +------+ + | Care Physician Practice Administrator Name | Role | Phone | [...] + + | 02/01/ | Telephone | [facility] | Silvia, | Other (unable to | | 2013 | | CARDIOLOGY [address] | PARISA [place] [address] | take the isosorbide) | | | | [place], | [place], | | | | | [place] [address] | [place] [address] | | | | | [phone] | [phone] | | | | | | | [...] | | | | | [place] [address] | | | | | | [phone] | | | | | | | | +--------+---------+ + + + | 01/01/ | Office | Cardiology | Silvia, | | | 2019 | Visit | | PARISA [place] [address] | | | | | | [place], | | | | | | [place] [address] | | | | | | [phone] | | | | | | | | +--------+---------+ + + + documented as of this encounter Visit Diagnoses + + | Diagnosis | + + | Coronary artery disease - Primary Coronary atherosclerosis of unspecified type of | | vessel, [place] or graft | + + | Hypertension Unspecified essential hypertension | + + | Hyperlipidemia Other and unspecified hyperlipidemia | + + documented in this encounter"
--- OUTSIDE RECORDS SUMMARY | ~2019-12-06 | XMS | Encounter Summary ---
Demographics + + + | Address | [address] | | | [place] [address] | + + + | Home Phone [...] Team Providers + +------+ + | Care Savings Teller Name | Role | Phone | + [...] | Visit | CARDIOLOGY [address] | REAL ESTATE DEVELOPER [address] | Dx) | | | | [place], | [place], [place] | | | | | [place] [address] | [address] | | | | | [phone] | | | +--------+---------+ + + + [...] as of this encounter Progress Notes Geri Angel ARNP - 12/21/2012 11:51 AM PSTFormatting of this note might be different fr om the original. This note is device interrogation only, full progress note done by Daljit Singletary MD for office visit of this same date. PACEMAKER / ICD PARAMETERS Name: Moe Sanchez Date: December 21, 2012 : 1960 Drain Cleaner: PARISA Velazquez Device Machine Lay Out Worker: [employer] Sense (mV) Impedance (?) Capture (V) Capture (ms) A Lead 4-5.6 423 1.5 0.09 RV Lead >31.36 539 2.0 0.09 LV Lead Battery Impedance (?): 301 Battery Voltage (V): 2.8 NE Interval (ms): 140 AR Interval (ms): 210 VA Conduction: Mode Switch Events: N/A % of time: -CLINICAL DOCUMENT IMPROVEMENT EDUCATOR: 0.6 AP-CLINICAL DOCUMENT IMPROVEMENT EDUCATOR: 1.3 -VS: 23.9 AP-VS: 74.2 CLINICAL DOCUMENT IMPROVEMENT EDUCATOR: Magnetic Rate: 85 LINDA: 65 LEAH: Current [...] in this e ncounter Plan of Treatment +--------+---------+ + + + | Date | Type | Specialty | Care Team | Description | +--------+---------+ + + + | 12/18/ | Office | Gastroenterology | Darin Gandhi | | | 2019 | Visit | | MD Jacek [address] | | | | | | [address] | | | | | | [place] [address] | | | | | | [phone] | | | | | | | | +--------+---------+ + + + | 01/01/ | Office | Cardiology | Silvia, | | | 2019 | Visit | | PARISA [place] [address] | | | | | | [place], | | | | | | [place] [address] | | | | | | [phone] | | | | | | | [...]
--- OUTSIDE RECORDS SUMMARY | ~2019-12-06 | XMS | Encounter Summary ---
Demographics + + + | Address | [address] | | | [place] [address] | + + + | Home Phone | | + + + | Preferred Language | Unknown | + + + | Marital Status | | + + + | Sabianism Affiliation | 1013 | + + + | Race | Unknown | + + + | Ethnic Group | Unknown | + + + Author + + + | Author | [facility] | | | and [place] | + + + | Organization | [facility] | | | [...] Team Providers + +------+ + | Care Hourly Sign Language Interpreter Name | Role | Phone | + +------+ + | Kirk French MD | PCP | | + +------+ + Reason for Visit +--------+ + | Reason | Comments | +--------+ + | LABS | | +--------+ + Encounter Details +--------+ + + + + | Date | Type | Department | Care Team | Description | +--------+ + + + + | 07/31/ | Telephone | [facility] | [place], | LABS | | 2019 | | CARDIOLOGY [address] | Janeen [employer]NAGEMENT ASSOCIATE [address] | | | | | [place], | [place], | | | | | [place] [address] | [place] [address] | | | | | [phone] | [phone] | | | | | | | [...] | | | | | [place] [address] | | | | | | [phone] | | | | | | | | +--------+---------+ + + + | 01/01/ | Office | Cardiology | [place], | | | 2019 | Visit | | PAR[facility] [place] [address] | | | | | | [place] | | | | | | [place] [address] | | | | | | [phone] | | | | | | | | +--------+---------+ + + + + +------+--------+ + + | Name | Type | Priori | Associated Diagnoses | Order Schedule | | | | ty | | | + +------+--------+ + + | Lipid Panel | Lab | Routin | Hyperlipidemia, | Expected: | | | | e | mixed | 07/31/2019, Expires: | | | | | | 07/30/2020 | + +------+--------+ + + documented as of this encounter Visit Diagnoses + + | Diagnosis | + + | Hyperlipidemia, mixed - Primary Mixed hyperlipidemia | + + documented in this encounter"
--- OUTSIDE RECORDS SUMMARY | ~2019-12-06 | XMS | Encounter Summary ---
Demographics + + + | Address | [address] | | | [place] [address] | + + + | Home Phone [...] Providers + +------+ + | Care Chief Cardiopulmonary Technologist Name | Role | Phone | + +------+ + | Kirk French MD | PCP | | + +------+ + Encounter Details +--------+ + + + + | Date | Type | Department | Care Team | Description | +--------+ + + + + | 11/17/ | Telephone | [facility] | Kirk French | | | 2019 | | GERALDINE Guidry MD [address] | | | | | [facility] [address] | | | | | [address] | [place] [address] | | | | | [place], [place] | [phone] | | | | | [address] | | | | | | [phone] | | | +--------+ + + + [...] | | | | | [place] [address] | | | | | | [phone] | | | | | | | | +--------+---------+ + + + | 01/01/ | Office | Cardiology | [place], | | | 2019 | Visit | | [facility] [place] [address] | | | | | | [place] | | | | | | [place] [address] | | | | | | [phone] | | | | | | | | +--------+---------+ + + + documented as of this encounter Visit Diagnoses Not on filedocumented in this encounter"
--- OUTSIDE RECORDS SUMMARY | ~2019-12-06 | XMS | Encounter Summary ---
Demographics + + + | Address | [address] | | | [place] [address] | + + + | Home Phone [...] Team Providers + +------+ + | Care Computer Applications Instructor Name | Role | Phone | + [...] | CARDIOLOGY [address] | [address] | Interrogation | | | | [place], | [place], | (Primary Dx); | | | | [place] [address] | [place] [address] | Pres[facility] of | | | | [phone] | [phone] | permanent cardiac | | | | [...] | | | | | [place] [address] | | | | | | [phone] | | | | | | | | +--------+---------+ + + + | 01/01/ | Office | Cardiology | [place], | | | 2019 | Visit | | [address] [place] [address] | | | | | | [place], | | | | | | [place] [address] | | | | | | [phone] | | | | | | | [...] Daljit | [facility] | | MD Gemini 01/11/2019 13:53Date of Remote Interrogation: | | | 12/29/18 Refer to [facility] documentation and remote PDF scanned into [employer] | | | for remote interrogation results. [...]
--- OUTSIDE RECORDS SUMMARY | ~2019-12-06 | XMS | Encounter Summary ---
Demographics + + + | Address | [address] | | | [place] [address] | + + + | Home Phone [...] Team Providers + +------+ + | Care Local Company Tanker Driver Name | Role | Phone | + +------+ + PCP | Unavailable | + +------+ + Encounter Details +--------+ + + + + | Date | Type | Department | Care Team | Description | +--------+ + + + + | 11/05/ | [facility] | [facility] | Naresh Mckeon | | | 2009 | Encounter | MED [facility] SLEEP | MD Chaya [address] | | | | | CENTER [address] | [place] | | | | | [place] | [place] [address] | | | | | [address] | [phone] | | | | | [phone] | | | +--------+ + + + [...] | | | | | [place] [address] | | | | | | [phone] | | | | | | | | +--------+---------+ + + + | 01/01/ | Office | Cardiology | [place], | | | 2020 | Visit | | [facility] [place] [address] | | | | | | [place], | | | | | | [place] [address] | | | | | | [phone] | | | | | | | | +--------+---------+ + + + documented as of this encounter Visit Diagnoses Not on filedocumented in this encounter"
--- OUTSIDE RECORDS SUMMARY | ~2019-12-06 | XMS | Encounter Summary ---
Demographics + + + | Address | [address] | | | [place] [address] | + + + | Home Phone [...] Providers + +------+ + | Care Furniture Upholsterer Name | Role | Phone | + [...] | 06/22/ | Telephone | [facility] [place] [facility] | Vasiliy Michael Kelsey, | Eye Problem | | 2012 | | [facility] [place] | DO [address] | | | | | [address] | [place] | | | | | [place] | [address] | | | | | [address] | | | | | | [phone] | | | +--------+ + + + [...] [address] | | | | | | [address] | | | | | | [place] [address] | | | | | | [phone] | | | | | | | | +--------+---------+ + + + | 01/01/ | Office | Cardiology | [place], | | | 2019 | Visit | | [facility] [place] [address] | | | | | | [place], | | | | | | [place] [address] | | | | | | [phone] | | | | | | | | +--------+---------+ + + + documented as of this encounter Visit Diagnoses Not on filedocumented in this encounter"
--- OUTSIDE RECORDS SUMMARY | ~2019-12-06 | XMS | Encounter Summary ---
Demographics + + + | Address | [address] | | | [place] [address] | + + + | Home Phone [...] Team Providers + +------+ + | Care Shop Tech Name | Role | Phone | + +------+ + | Michael Amanda DO | PCP | | + +------+ + Encounter Details +--------+ + + + + | Date | Type | Department | Care Team | Description | +--------+ + + + + | 02/27/ | Hospital | [facility] | Shelly Carter DO | Chest pain; | | 2013 - | Encounter | [facility] | [address] | Pacemaker; | | | | CLINICAL DECISION | [place] [address] | Mild dehydration | | 02/28/ | | [address] [facility] | [phone] | | | 2013 | | [place], [place] | | | | | | [address] | | | | | | [phone] | | | +--------+ + + + [...] documented as of this encounter Discharge Summaries Dev Montano MD - 02/28/2014 10:45 AM PDT Discharge Summaries by Dev Montano MD at 02/28/14 1045 Author: Dev Montano MD Service: Hospitalist Author Type: Physician Filed: 03/06/14 2252 Date of Service: 02/28/141044 Status: Addendum [employer] Operations Engineer: Dev Montano MD (Physician) Related Notes: Original Note by Dev Montano MD (Physician) filed at 02/28/14 1107 Patient ID: Pina Gay [id number] 54 y.o. 1960 Admit date: 02/27/2014 Discharge date and time: No discharge date for patient encounter. Admitting Physician: Shelly Carter DO Discharge Physician: MD Saul Primary Discharge Diagnoses: Chest pain [786.50] Pacemaker [V45.01] Mild dehydration [276.51] GERD Discharged Condition: stable Significant Diagnostic Studies: Lab Results Component Value Date WBC 6.7 02/28/2014 HGB 15.3 02/28/2014 HCT 44.2 02/28/2014 MCV 94.5 02/28/2014 PLT 156 02/28/2014 GLUCOSE Date Value Range Status 02/28/2014 107* 65 - 99 mg/dL Final Testing performed at [address] [address] BUN Date Value Range Status 02/28/2014 15 8 - 25 mg/dL Final Testing performed at [address] [address] CREATININE Date Value Range Status 02/28/2014 0.74 0.70 - 1.30 mg/dL Final Testing performed at [address] [address] BUN/CREAT Date Value Range Status 02/28/2014 20 Final Testing performed at [address] [address] TOTAL PROTEIN Date Value Range Status 02/28/2014 6.1* 6.3 - 8.2 g/dL Final Testing performed at [address] [address] GLOBULIN Date Value Range Status 02/28/2014 2.1 1.3 - 4.9 g/dL Final Testing performed at [address] [address] TBIL Date Value Range Status 02/28/2014 1.4 0.1 - 1.5 mg/dL Final Testing performed at [address] [address] ALT Date Value Range Status 02/28/2014 27 10 - 65 U/L Final Testing performed at [address] [address] AST Date Value Range Status 02/28/2014 31 10 - 45 U/L Final Testing performed at [address] [address] SODIUM Date Value Range Status 02/28/2014 138 135 - 143 mmol/L Final Testing performed at [facility], [address] [place] [address] POTASSIUM Date Value Range Status 02/28/2014 3.4* 3.5 - 4.9 mmol/L Final Testing performed at [facility], [address] [place] [address] CHLORIDE Date Value Range Status 02/28/2014 108 99 - 109 mmol/L Final Testing performed at [address] [address] CO2 Date Value Range Status 02/28/2014 21* 23 - 32 mmol/L Final Testing performed at [facility], [address] [place] [address] ANION GAP AGAP Date Value Range Status 02/28/2014 12 5 - 20 mmol/L Final Testing performed at [facility], [address] [place] [address] Xr Chest Pa And Lateral 02/27/2014 PINA GAY XR CHEST 2 VIEW FRONTAL AND LATERAL 02/27/2014 5:58 PM HISTORY: 54 y ears. Male. Chest pain. TECHNIQUE: 2 views obtained. COMPARISON: 05/24/2009. FINDINGS: A 2-lead ICD seen over the left chest with intact leads in proper position. The patient has had prior lower cervical fusion surgery with ACDF plating and screws noted anteriorly and p osterior instrumentation also seen. The heart is normal in size. The lungs are normally exp anded. The pulmonary vascular pattern is normal. No acute airspace disease, parenchymal no dule, mass, pleural effusion or pneumothorax is noted. No hilar adenopathy is seen. The os seous structures are intact. 02/27/2014 1. No acute findings in the chest to explain chest pain. 2. 2-lead ICD seen ove r the left chest with intact leads in proper position. 3. Prior lower cervical anterior and posterior fusion noted. Cta Chest Abdomen 02/27/2014 PINA GAY CTA CHEST ABDOMEN W CONTRAST 02/27/2014 11:21 PM HISTORY: 54 years. Male. Chest pain. Evaluate for dissection TECHNIQUE: 5-mm axial images were acquired with out intravenous contrast. Subsequently axial 0.625 mm arterial phase images were acquired t hrough the chest and abdomen according to a CT angiography protocol. Multiplanar CT angiogr aphic MIP reconstructions were performed from the arterial phase data set. 3-D reconstructi ons were performed using the [employer] 3-D software and sent to PACS. Oral Contrast: None I V contrast: 100 mL IsoVue 370 COMPARISON: None. FINDINGS: CHEST: The pewter finisher view shows a p acemaker via left side, prior neck surgery and prior lumbar surgery The thyroid is symmetric and shows no evidence of a solid or cystic mass. Noncontrast study shows 4 cm aneurysmal di latation of the miguel ascending thoracic aorta. No evidence of dissection no asymmetry or disp lacement of plaque No bulky adenopathy is seen in the lower lydia stations of the neck, axil mic regions, mediastinum or hilar regions. The pulmonary arteries are normal in caliber. No intraluminal filling defects are seen to suggest the presence of pulmonary emboli. The heart is normal in size. No pericardial abnormality is noted. No filling defects are seen in the chambers of the heart to suggest clot or tumor. The lungs are well aerated. No acut e airspace disease, parenchymal nodule, mass, pleural effusion or pneumothorax is noted. No bronchiectasis is seen. The thoracic esophagus is normal. No hiatal hernia is seen. ABDO MEN: The liver is normal in size, position, contour but attenuation is somewhat low, suggest ing fatty infiltration. No solid or cystic masses are noted. No intrahepatic biliary ducta l enlargement is seen. The portal vein and hepatic veins are normal. The spleen is normal in size and attenuation. No solid or cystic masses are noted. The pancreas is normal in si ze and attenuation. No solid or cystic masses are noted. The gallbladder is normal in size . No stones, sludge or wall thickening is noted. The adrenal glands are normal in size phoebe aterally. There is no evidence of an adrenal adenoma or hyperplasia. The kidneys are symme tric in size bilaterally and show no evidence of a solid or cystic mass. No hydronephrosis is noted. No stones are seen in the collecting systems. No free fluid or free air is prese nt. No adenopathy is seen in the abdomen or pelvis. The stomach, duodenum, jejunum, ileum, ileocecal valve are normal. No air-fluid levels are seen to suggest obstruction. The appe ndix is not discretely visualized and may be surgically absent. The ascending colon, transv erse colon, descending colon, sigmoid colon and rectum demonstrate normal wall thickness. N o diverticulosis is noted. The muscles of the chest are symmetric. No focal atrophy or sof t tissue mass is seen. The osseous structures of the chest do not demonstrate lytic or janet tic lesions. CTA CHEST: A left-sided aortic arch is noted with a 3 vessel arch configuratio n. No dissection, aneurysm or stenosis is seen in the aorta or great vessels. Ascending Aor ta: Mild mixed calcified and soft plaque identified. No evidence of aneurysm, dissection o r stenosis. Right Brachiocephalic: Mild mixed calcified and soft plaque identified. No bud dence of aneurysm, dissection or stenosis. Right Common Carotid: Mild mixed calcified and so ft plaque identified. No evidence of aneurysm, dissection or stenosis. Right Subclavian: M ild mixed calcified and soft plaque identified. No evidence of aneurysm, dissection or deborah nosis. Left Common Carotid: Mild mixed calcified and soft plaque identified. No evidence o f aneurysm, dissection or stenosis. Left Subclavian: Mild mixed calcified and soft plaque id entified. No evidence of aneurysm, dissection or stenosis. Descending Aorta: Mild mixed ca lcified and soft plaque identified. No evidence of aneurysm, dissection or stenosis. CTA ABDOMEN: Aorta: Mild mixed calcified and soft plaque identified. No evidence of aneurysm, dissection or stenosis. Celiac: Mild mixed calcified and soft plaque identified. No eviden ce of aneurysm, dissection or stenosis. SMA: Mild mixed calcified and soft plaque identified . No evidence of aneurysm, dissection or stenosis. QASIM : Mild mixed calcified and soft rg que identified. No evidence of aneurysm, dissection or stenosis. Right Renal: Mild mixed c alcified and soft plaque identified. No evidence of aneurysm, dissection or stenosis. Left Renal: 2 left renal arteries. No stenoses identified Right Lower Extremity Common Iliac: N ormal. Left Lower Extremity Common Iliac: Normal. 02/27/2014 1. 4 cm aneurysmal dilatation of the ascending thoracic aorta. This may be follo wed sequentially at 6 month intervals with noncontrast CT of the chest. 2. Prior low back and neck surgeries. Pacemaker. 3. Fatty infiltration of the liver. 4. No renal stenoses or obstructions identified and no evidence of dissection. 5. 2 left renal arteries. Elect ronically signed by Doroteo Marin MD on 02/27/2014 11:29 PM HPI and Hospital Course: 1. A 54-year-old gentleman with past medical history of hypertensi on, hyperlipidemia, chronic back pain, history of pacemaker, who [facility] complaining of chest pain which started after he had a cheeseburger with his friend. He started to have chest pain at center of the chest radiating towards the back, 8 out of 10 intensity, associated with some shortness of breath, near syncope, and diaphoresis . The patient EKGs showed atrial paced rhythm, no significant ST or T-wave changes. Serial c ardiac enzymes were checked 3 times which were negative. The patient told that he had a card iac catheterization recently done by Dr. Singletary in [place] in December 2013 at [facility] which showed minimal occlusive disease. One artery was 25% and another was 15%, per patient. I requested official cardiac catheterization report from [place] and still waiting for it to come. The patient did not have any chest pain at all. When I asked sandra moreno further questions, he told me that he has GERD-like symptoms that are uncontrolled in spi te of taking Prilosec, also has a lot of anxiety going on, as his mother recently and sandra rodarte has an ongoing property dispute going on with her sister which stresses him out. Otherwise , I do not see any objective evidence of any coronary artery disease, especially with his re cent cardiac catheterization which does not show any significant occlusive disease, and his symptoms could be secondary to esophageal spasm versus stress. I advised the patient to cont inue on medical therapy for his heart disease and we will start the patient on Protonix 40 m g p.o. daily for GERD. I will change Cardizem to amlodipine which helped in esophageal spasm . I referred the patient to Dr. Pulido for elective endoscopy. 2. Ascending thoracic aortic aneurysm 4 cm which is incidental finding on CT scan of the ch est done to rule out any dissection which will need followup with a cardiothoracic surgeon. Hence the patient is being referred to Dr. Ortiz for followup. 3. Diarrhea which has been going on for the last 2 to 3 weeks after the patient stopped zeynep ing narcotics for lower back pain. He takes Imodium as needed. I do not suspect any infectio us etiology as his white count is normal, he is afebrile, and he did not have any episodes o f diarrhea or stool incontinence here in the hospital. I spent more than 30 minutes on discharge. BP 132/84 | Pulse 74 | Temp 98.4 F (36.9 C) (Oral) | Resp 16 | Ht 1.93 m (6' 4") | Wt 1 24.739 kg (275 lb) | BMI 33.49 kg/m2 | SpO2 95% No intake or output data in the 24 hours ending 02/28/14 1045 Discharge Exam: Constitutional: Alert and oriented to person, place, and time. Appears well-developed and w ell-nourished. Cardiovascular: Normal rate, regular rhythm, normal heart sounds and intact distal pulses. Exam reveals no gallop and no friction rub. No murmur heard. Pulmonary/Chest: Effort normal and breath sounds normal. No stridor. No respiratory distres s. no wheezes. no rales. exhibits no tenderness. Abdominal: Soft. Bowel sounds are normal. exhibits no distension and no mass. There is no t enderness. There is no rebound and no guarding. Musculoskeletal: Normal range of motion.exhibits no tenderness. exhibits no edema. Neurological: Alert and oriented to person, place, and time. Has normal reflexes. display s normal reflexes. No cranial nerve deficit. Exhibits normal muscle tone. Coordination norm al. Skin: Skin is warm and dry. No rash noted. No erythema. No pallor. Psychiatric: Has a normal mood and affect. Behavior is normal. Judgment normal. Disposition: Home or Self Care/O/P Patient Instructions: Medication List As of 02/28/2014 10:45 AM START taking these medications amLODIPine 5 MG tablet QTY: 30 tablet Refills: 0 Commonly known as: NORVASC Take 1 tablet by mouth daily. pantoprazole 40 MG tablet QTY: 30 tablet Refills: 0 Doctor's comments: Change to equivalent dose of PPI if needed Commonly known as: PROTONIX Take 1 tablet by mouth every morning before breakfast. CONTINUE taking these medications aspirin 81 MG EC tablet Refills: 0 CLONIDINE HCL PO Refills: 0 METOPROLOL TARTRATE PO Refills: 0 PRAVASTATIN SODIUM PO Refills: 0 UNKNOWN TO PATIENT Refills: 0 STOP taking these medications DILTIAZEM HCL CD PO Where to get your medications These are the prescriptions that you need to burr picker. You may get these medications from any pharmacy. amLODIPine 5 MG tablet pantoprazole 40 MG tablet Activity: activity as tolerated Diet: cardiac diet Wound Care: not applicable There are no Patient Instructions on file for this visit. Per Pt None Chaka Ortiz MD [address] [facility] [phone] In 1 week Ariel Pulido MD [address] [facility] [phone] In 1 week Daljit Singletary MD [address] [facility] [address] In 1 week Signed: DEV MONTANO 02/28/2014 10:45 AM Addendum:ADDENDUM I just received a cardiac catheterization report from [facility], [place], which was done on December 25, 2013. It shows noncritical coronary artery disease, mild ecta tic changes to the left main artery. The coronary circulation is right dominant. Normal left ventricular size, wall thickness, and motion. Preserved left ventricular systolic function is 75%, normal systolic blood pressure. Successful TR Band application to the right radial a rtery. documented in this en counter Medications at Time of Discharge + + [...] + + + +---------+ + + | [place]-3 Fatty | CAPS, one capsule by | [...] Progress Notes Conversion Transaction, Provider Unknown - 02/28/2014 12:11 PM PDTFormatting of this note m ight be different from the original. Nurse Progress Note by Bijal Sosa RN at 02/28/141210 Author: Bijal Sosa RN Service: (none) Author Type: Registered Nurse Filed: 02/28/141211 Date of Service: 02/28/141210 Status: Signed [employer] Plant Operations Engineer: Bijal Sosa RN (Registered Nurse) Discharge instructions given to the patient. Advised to follow up with Ariel Cooper, and his cardiologists all within 1 week. No concerns at this time. IV discontinued, all belo ngings went with the patient. onver fatemeh Transaction, Provider Unknown - 02/28/2014 12:12 AM PDT Progress Notes by Mary Wetzel RPH at 02/28/1411 Author: Mary Wetzel RPH Service: (none) Author Type: Pharmacist Filed: 02/28/1411 Date of Service: 02/28/1411 Status: Signed [employer] Plant Operations Engineer: Mary Wetzel RPH (Pharmacist) Clinical Pharmacy Note: Renal Monitoring Pina Gay 54 y.o. male Height: 193 cm Weight: 124.7 kg CREATININE: 0.97 (02/27/14 1747) Estimated creatinine clearance - Cockcroft-Gault CrCl: 124.1 mL/min Pharmacy dosing for renal function per Dr. Carter. Currently, there are no medications needing to be adjusted. Pharmacy will continue to monit or for changes in medication orders and in renal function and adjust accordingly per P & T c ommittee. Mary Wetzel PharmD 02/28/2014 12:11 AM Karen pfeiffer in this encounter Plan of Treatment +--------+---------+ + + + | Date | Type | Specialty | Care Team | Description | +--------+---------+ + + + | 12/18/ | Office | Gastroenterology | Darin Gandhi | | | 2019 | Visit | | MD Jacek [address] | | | | | [address] | | | | | | [place] [address] | | | | | | [phone] | | | | | | | | +--------+---------+ + + + | 01/01/ | Office | Cardiology | Silvia, | | | 2019 | Visit | | PARISA Vernon [address] | | | | | | [place] | | | | | | [place] [address] | | | | | | [phone] | | | | | | | | +--------+---------+ + + + documented as of this encounter Procedures + +--------+ + + + | Procedure Name | Priori | Date/Time | Associated Diagnosis | Comments | | | ty | | | | + +--------+ + + + | EXTERNAL LAB: CBC | Routin | 02/28/2014 | | Results for this | | | e | 5:45 AM | | procedure are in the | | | | PDT | | results section. | + +--------+ + + + | LIPID PANEL | Routin | 02/28/2014 | | Results for this | | | e | 5:45 AM | | procedure are in the | | | | PDT | | results section. | + +--------+ + + + | TROPONIN I | Routin | 02/28/2014 | | Results for this | | | e | 5:45 AM | | procedure are in the | | | | PDT | | results section. | + +--------+ + + + | CK-MB | Routin | 02/28/2014 | | Results for this | | | e | 5:45 AM | | procedure are in the | | | | PDT | | results section. | + +--------+ + + + | PHOSPHORUS | Routin | 02/28/2014 | | Results for this | | | e | 5:45 AM | | procedure are in the | | | | PDT | | results section. | + +--------+ + + + | MAGNESIUM | Routin | 02/28/2014 | | Results for this | | | e | 5:45 AM | | procedure are in the | | | | PDT | | results section. | + +--------+ + + + | CK TOTAL | Routin | 02/28/2014 | | Results for this | | | e | 5:45 AM | | procedure are in the | | | | PDT | | results section. | + +--------+ + + + | COMPREHENSIVE | Routin | 02/28/2014 | | Results for this | | METABOLIC PANEL | e | 5:45 AM | | procedure are in the | | | | PDT | | results section. | + +--------+ + + + | ECG 12 LEAD | Routin | 02/28/2014 | | Results for this | | | e | 5:16 AM | | procedure are in the | | | | PDT | | results section. | + +--------+ + + + | TROPONIN I | Routin | 02/28/2014 | | Results for this | | | e | 12:24 AM | | procedure are in the | | | | PDT | | results section. | + +--------+ + + + | CK-MB | Routin | 02/28/2014 | | Results for this | | | e | 12:24 AM | | procedure are in the | | | | PDT | | results section. | + +--------+ + + + | CK TOTAL | Routin | 02/28/2014 | | Results for this | | | e | 12:24 AM | | procedure are in the | | | | PDT | | results section. | + +--------+ + + + | CT ANGIOGRAM CHEST | Routin | 02/27/2014 | | Results for this | | ABDOMEN W CONTRAST | e | 11:21 PM | | procedure are in the | | | | PDT | | results section. | + +--------+ + + + | XR CHEST 2 VIEWS | Routin | 02/27/2014 | | Results for this | | | e | 5:58 PM | | procedure are in the | | | | PDT | | results section. | + +--------+ + + + | HISTORICAL LAB PANEL | Routin | 02/27/2014 | | Results for this | | RESULT | e | 5:47 PM | | procedure are in the | | | | PDT | | results section. | + +--------+ + + + | TSH | Routin | 02/27/2014 | | Results for this | | | e | 5:47 PM | | procedure are in the | | | | PDT | | results section. | + +--------+ + + + | B TYPE NATRIURETIC | Routin | 02/27/2014 | | Results for this | | PEPTIDE | e | 5:47 PM | | procedure are in the | | | | PDT | | results section. | + +--------+ + + + | ECG 12 LEAD | Routin | 02/27/2014 | | Results for this | | | e | 5:23 PM | | procedure are in the | | | | PDT | | results section. | + +--------+ + + + documented in this encounter Results CK-MB (02/28/2014 5:45 AM PDT) + + + + + -+ | Component | Value | Ref Range | Performed | Pathologist | | | | | At | Signature | + + + + + -+ | CK-MB | 5.6 (H)Comment: Testing | 0.5 - 3.6 ng/mL | EXTERNAL | | | | performed at [facility];[address] | | LAB | | | | [address] [facility];[place], [place] | | | | | | [address] | | | | + + + + + -+ | CK-MB Index | 1.8Comment: CK INDEX | | EXTERNAL | | | | INTERPRETATION: | | LAB | | | | MMB ng/mL | | | | | | | | | | | |CK INDEX INTERPRETATION: | | | | | | MMB ng/mL | | | | | | | | | | + + + + + -+ + + | Specimen | + + | | + + + +---------+ + + | Performing | Address | City/State/Zipcode | Phone Number | | Organization | | | | + +---------+ + + | EXTERNAL LAB | | | | + +---------+ + + Troponin I (02/28/2014 5:45 AM PDT) + + + + + + | Component | Value | Ref Range | Performed | Pathologist | | | | | At | Signature | + + + + + + | Troponin I, | <0.020Comment: 0.00 to | 0.00 - 0.10 | EXTERNAL | | | Qual | 0.10 CONSISTENT WITH | ng/mL | LAB | | | | NORMAL POPULATION0.11 | | | | | | to 0.60 CONSISTENT | | | | | | WITH INCREASED RISK FOR | | | | | | ADVERSE OUTCOMES> 0.60 | | | | | | CONSISTENT | | | | | | WITH WHO CRITERIA FOR | | | | | | ACUTE [place] Testing | | | | | | performed at [facility];[address] | | | | | | [address] [facility];[place], [place] | | | | | | [address] | | | | + + + [...] + +---------+ + + External Lab: CBC (02/28/2014 5:45 AM PDT) + + + + + + | Component | Value | Ref Range | Performed | Pathologist | | | | | At | Signature | + + + + + + | WBC | 6.7Comment: Testing | 3.8 - 11.0 K/uL | EXTERNAL | | | | performed at [facility], [address] | | LAB | | | | [address], | | | | | | [place] [address] | | | | + + + + + + | RED CELL | 4.68Comment: Testing | 4.20 - 5.70 | EXTERNAL | | | COUNT | performed at [facility], [address] | M/uL | LAB | | | | [address], | | | | | | [place] [address] | | | | + + + + + + | Hgb | 15.3Comment: Testing | 13.2 - 17.0 | EXTERNAL | | | | performed at [facility], [address] | g/dL | LAB | | | | [address], | | | | | | [place] [address] | | | | + + + + + + | Hematocrit, | 44.2Comment: Testing | 39.0 - 50.0 % | EXTERNAL | | | POC | performed at [facility], [address] | | LAB | | | | [address], | | | | | | [place] [address] | | | | + + + + + + | MCV | 94.5Comment: Testing | 80.0 - 100.0 fl | EXTERNAL | | | | performed at [facility], [address] | | LAB | | | | [address], | | | | | | [place] [address] | | | | + + + + + + | MCH | 32.6Comment: Testing | 27.0 - 34.0 pg | EXTERNAL | | | | performed at [facility], [address] | | LAB | | | | [address], | | | | | | [place] [address] | | | | + + + + + + | MCHC | 34.5Comment: Testing | 32.0 - 35.5 | EXTERNAL | | | | performed at [facility], [address] | g/dL | LAB | | | | [address], | | | | | | [place] [address] | | | | + + + + + + | RDW-CV | 45.5Comment: Testing | 37 - 53 fl | EXTERNAL | | | | performed at [facility], [address] | | LAB | | | | [address], | | | | | | [place] [address] | | | | + + + + + + | Platelet | 156Comment: Testing | 150 - 400 K/uL | EXTERNAL | | | Count | performed at [facility], [address] | | LAB | | | Plasma | [address], | | | | | | [place] [address] | | | | + + + + + + | MPV | 8.8Comment: Testing | fl | EXTERNAL | | | | performed at [facility], [address] | | LAB | | | | [address], | | | | | | [place] [address] | | | | + + + + + + | Differentia | AUTOMATEDComment: | | EXTERNAL | | | l Type | Testing performed at | | LAB | | | | [facility], [address], [place], [place] | | | | | | [address] | | | | + + + + + + | % Segmented | 57.7Comment: Testing | % | EXTERNAL | | | | performed at [facility], [address] | | LAB | | | Neutrophils | [address], | | | | | | [place] [address] | | | | + + + + + + | % | 31.8Comment: Testing | % | EXTERNAL | | | Lymphocytes | performed at [facility], [address] | | LAB | | | | [address], | | | | | | [place] [address] | | | | + + + + + + | % Monocytes | 9.2Comment: Testing | % | EXTERNAL | | | | performed at [facility], [address] | | LAB | | | | [address], | | | | | | [place] [address] | | | | + + + + + + | % | 0.9Comment: Testing | % | EXTERNAL | | | Eosinophils | performed at [facility], [address] | | LAB | | | | [address], | | | | | | [place] [address] | | | | + + + + + + | % Basophils | 0.4Comment: Testing | % | EXTERNAL | | | | performed at [facility], [address] | | LAB | | | | [address], | | | | | | [place] [address] | | | | + + + + + + | Absolute | 3.9Comment: Testing | 1.9 - 7.4 K/uL | EXTERNAL | | | Segmented | performed at [facility], [address] | | LAB | | | Neutrophils | [address], | | | | | | [place] [address] | | | | + + + + + + | Absolute | 2.1Comment: Testing | 1.0 - 3.9 K/uL | EXTERNAL | | | Lymphocytes | performed at [facility], [address] | | LAB | | | | [address], | | | | | | [place] [address] | | | | + + + + + + | Absolute | 0.6Comment: Testing | 0 - 0.8 K/uL | EXTERNAL | | | Monocytes | performed at [facility], [address] | | LAB | | | | [address], | | | | | | [place] [address] | | | | + + + + + + | Absolute | 0.1Comment: Testing | 0 - 0.5 K/uL | EXTERNAL | | | Eosinophils | performed at [facility], [address] | | LAB | | | | [address], | | | | | | [place] [address] | | | | + + + + + + | Absolute | 0.0Comment: Testing | 0 - 0.1 K/uL | EXTERNAL | | | Basophils | performed at [facility], [address] | | LAB | | | | [address], | | | | | | [place] [address] | | | | + + + + + + + + | Specimen | + + | | + + + +---------+ + + | Performing | Address | City/State/Zipcode | Phone Number | | Organization | | | | + +---------+ + + | EXTERNAL LAB | | | | + +---------+ + + Phosphorus (02/28/2014 5:45 AM PDT) + + + + + + | Component | Value | Ref Range | Performed | Pathologist | | | | | At | Signature | + + + + + + | PHOSPHORUS | 2.3Comment: Testing | 2.3 - 4.8 mg/dL | EXTERNAL | | | | performed at [facility], [address] | | LAB | | | | [address] [facility], | | | | | | [place] [address] | | | | + + + + + + + + | Specimen | + + | | + + + +---------+ + + | Performing | Address | City/State/Zipcode | Phone Number | | Organization | | | | + +---------+ + + | EXTERNAL LAB | | | | + +---------+ + + Magnesium (02/28/2014 5:45 AM PDT) + + + + + + | Component | Value | Ref Range | Performed | Pathologist | | | | | At | Signature | + + + + + + | Magnesium | 2.2Comment: Testing | 1.7 - 2.4 mg/dL | EXTERNAL | | | | performed at [facility], [address] | | LAB | | | | [address], | | | | | | [place] [address] | | | | + + + + + + + + | Specimen | + + | | + + + +---------+ + + | Performing | Address | City/State/Zipcode | Phone Number | | Organization | | | | + +---------+ + + | EXTERNAL LAB | | | | + +---------+ + + CK Total (02/28/2014 5:45 AM PDT) + + + + + + | Component | Value | Ref Range | Performed | Pathologist | | | | | At | Signature | + + + + + + | CK, Total | 315Comment: Testing | 55 - 400 U/L | EXTERNAL | | | | performed at [facility];[address] | | LAB | | | | [address];[place] | | | | | | [address] | | | | + + + + + + + + | Specimen | + + | Blood specimen | | (specimen) | + + + +---------+ + + | Performing | Address | City/State/Zipcode | Phone Number | | Organization | | | | + +---------+ + + | EXTERNAL LAB | | | | + +---------+ + + Lipid Panel (02/28/2014 5:45 AM PDT) + + + + + + | Component | Value | Ref Range | Performed | Pathologist | | | | | At | Signature | + + + + + + | Cholesterol | 109Comment: Testing | mg/dL | EXTERNAL | | | | performed at [facility], [address] | | LAB | | | | [address], | | | | | | [place] [address] | | | | + + + + + + | Triglycerid | 37Comment: Testing | mg/dL | EXTERNAL | | | es | performed at [facility], [address] | | LAB | | | | [address], | | | | | | [place] [address] | | | | + + + + + + | HDL | 35 (L)Comment: Testing | mg/dL | EXTERNAL | | | | performed at [facility], [address] | | LAB | | | | [address], | | | | | | [place] [address] | | | | + + + + + + | LDL | 67Comment: Testing | mg/dL | EXTERNAL | | | Cholesterol | performed at [facility], [address] | | LAB | | | , | [address], | | | | | Calculated, | [place] [address] | | | | | External | [...] + +---------+ + + Comprehensive Metabolic Panel (02/28/2014 5:45 AM PDT) + + + + + + | Component | Value | Ref Range | Performed | Pathologist | | | | | At | Signature | + + + + + + | Na | 138Comment: Testing | 135 - 143 | EXTERNAL | | | | performed at [facility], [address] | mmol/L | LAB | | | | [address], | | | | | | [place] [address] | | | | + + + + + + | K | 3.4 (L)Comment: Testing | 3.5 - 4.9 | EXTERNAL | | | | performed at [facility], [address] | mmol/L | LAB | | | | [address], | | | | | | [place] [address] | | | | + + + + + + | Cl | 108Comment: Testing | 99 - 109 mmol/L | EXTERNAL | | | | performed at [facility], [address] | | LAB | | | | [address], | | | | | | [place] [address] | | | | + + + + + + | CO2 | 21 (L)Comment: Testing | 23 - 32 mmol/L | EXTERNAL | | | | performed at [facility], [address] | | LAB | | | | [address], | | | | | | [place], [place] [address] | | | | + + + + + + | Anion Gap | 12Comment: Testing | 5 - 20 mmol/L | EXTERNAL | | | | performed at [facility], [address] | | LAB | | | | [address], | | | | | | [place], [place] [address] | | | | + + + + + + | Glucose, | 107 (H)Comment: Testing | 65 - 99 mg/dL | EXTERNAL | | | Fasting | performed at [facility], [address] | | LAB | | | | [address], | | | | | | [place] [address] | | | | + + + + + + | BUN | 15Comment: Testing | 8 - 25 mg/dL | EXTERNAL | | | | performed at [facility], [address] | | LAB | | | | [address], | | | | | | [place] [address] | | | | + + + + + + | Creatinine | 0.74Comment: Testing | 0.70 - 1.30 | EXTERNAL | | | | performed at [facility], [address] | mg/dL | LAB | | | | [address], | | | | | | [place] [address] | | | | + + + + + + | BUN/Creatin | 20Comment: Testing | | EXTERNAL | | | ine Ratio | performed at [facility], [address] | | LAB | | | | [address], | | | | | | [place] [address] | | | | + + + + + + | Calcium | 8.9Comment: Testing | 8.5 - 10.2 | EXTERNAL | | | | performed at [facility], [address] | mg/dL | LAB | | | | [address], | | | | | | [place] [address] | | | | + + + + + + | Protein, | 6.1 (L)Comment: Testing | 6.3 - 8.2 g/dL | EXTERNAL | | | Total | performed at [facility], [address] | | LAB | | | | [address], | | | | | | [place] [address] | | | | + + + + + + | Albumin | 4.0Comment: Testing | 3.6 - 5.0 g/dL | EXTERNAL | | | | performed at [facility], [address] | | LAB | | | | [address], | | | | | | [place] [address] | | | | + + + + + + | Globulin | 2.1Comment: Testing | 1.3 - 4.9 g/dL | EXTERNAL | | | | performed at [facility], [address] | | LAB | | | | [address], | | | | | | [place] [address] | | | | + + + + + + | A/G Ratio | 1.9Comment: Testing | 1.0 - 2.4 | EXTERNAL | | | | performed at [facility], [address] | | LAB | | | | [address], | | | | | | [place] [address] | | | | + + + + + + | Bilirubin | 1.4Comment: Testing | 0.1 - 1.5 mg/dL | EXTERNAL | | | Total | performed at [facility], [address] | | LAB | | | | [address], | | | | | | [place] [address] | | | | + + + + + + | ALP, | 46Comment: Testing | 35 - 115 U/L | EXTERNAL | | | External | performed at [facility], [address] | | LAB | | | | [address], | | | | | | [place] [address] | | | | + + + + + + | AST | 31Comment: Testing | 10 - 45 U/L | EXTERNAL | | | | performed at [facility], [address] | | LAB | | | | [address], | | | | | | [place] [address] | | | | + + + + + + | ALT | 27Comment: Testing | 10 - 65 U/L | EXTERNAL | | | | performed at [facility], [address] | | LAB | | | | [facility], | | | | | | [place] [address] | | | | + + + + + + | Estimated | >60Comment: GFR <60: | mL/min/1.73m2 | EXTERNAL | | | GFR | CHRONIC KIDNEY DISEASE, | | LAB | | | | IF FOUND OVER A 3 MONTH | | | | | | PERIOD.GFR <15: KIDNEY | | | | | | FAILURE.FOR | | | | | | AMERICANS, MULTIPLY THE | | | | | | CALCULATED GFR BY | | | | | | 1.210.Testing performed | | | | | | at [facility], [address] | | | | | | [facility], | | | | | | [place] [address] | | | | + + + + + + + + | Specimen | + + | | + + + +---------+ + + | Performing | Address | City/State/Zipcode | Phone Number | | Organization | | | | + +---------+ + + | EXTERNAL LAB | | | | + +---------+ + + ECG 12 lead (02/28/2014 5:16 AM PDT) + + + + + + | Component | Value | Ref Range | Performed | Pathologist | | | | | At | Signature | + + + + + + | DIAGNOSIS: | Atrial-paced | | EXTERNAL | | | | rhythmAbnormal ECGWhen | | LAB | | | | compared with ECG of | | | | | | 27-FEB-2014 17:23,No | | | | | | significant change was | | | | | | foundConfirmed by VERONICA, | | | | | | WILIAN ([id number]) on 02/28/2014 | | | | | | 2:24:36 PM | | | | + + + + + + + + | Specimen | + + | | + + + + + | Narrative | Performed At | + + + | Historically converted procedure from [facility] | EXTERNAL LAB | + + + + +---------+ + + | Performing | Address | City/State/Zipcode | Phone Number | | Organization | | | | + +---------+ + + | EXTERNAL LAB | | | | + +---------+ + + CK-MB (02/28/2014 12:24 AM PDT) + + + + + -+ | Component | Value | Ref Range | Performed | Pathologist | | | | | At | Signature | + + + + + -+ | CK-MB | 6.7 (H)Comment: Testing | 0.5 - 3.6 ng/mL | EXTERNAL | | | | performed at [facility];[address] | | LAB | | | | [address];[place], [place] | | | | | | [address] | | | | + + + + + -+ | CK-MB Index | 1.7Comment: CK INDEX | | EXTERNAL | | | | INTERPRETATION: | | LAB | | | | MMB ng/mL | | | | | | | | | | | |CK INDEX INTERPRETATION: | | | | | | MMB ng/mL | | | | | | | | | | + + + + + -+ + + | Specimen | + + | | + + + +---------+ + + | Performing | Address | City/State/Zipcode | Phone Number | | Organization | | | | + +---------+ + + | EXTERNAL LAB | | | | + +---------+ + + Troponin I (02/28/2014 12:24 AM PDT) + + + + + + | Component | Value | Ref Range | Performed | Pathologist | | | | | At | Signature | + + + + + + | Troponin I, | <0.020Comment: 0.00 to | 0.00 - 0.10 | EXTERNAL | | | Qual | 0.10 CONSISTENT WITH | ng/mL | LAB | | | | NORMAL POPULATION0.11 | | | | | | to 0.60 CONSISTENT | | | | | | WITH INCREASED RISK FOR | | | | | | ADVERSE OUTCOMES> 0.60 | | | | | | CONSISTENT | | | | | | WITH WHO CRITERIA FOR | | | | | | ACUTE [place] Testing | | | | | | performed at [facility];[address] | | | | | | [address];[place], [place] | | | | | | [address] | | | | + + + + + + + + | Specimen | + + | Blood specimen | | (specimen) | + + + +---------+ + + | Performing | Address | City/State/Zipcode | Phone Number | | Organization | | | | + +---------+ + + | EXTERNAL LAB | | | | + +---------+ + + CK Total (02/28/2014 12:24 AM PDT) + + + + + + | Component | Value | Ref Range | Performed | Pathologist | | | | | At | Signature | + + + + + + | CK, Total | 388Comment: Testing | 55 - 400 U/L | EXTERNAL | | | | performed at [facility];[address] | | LAB | | | | [address];[place] | | | | | | [address] | | | | + + + + + + + + | Specimen | + + | Blood specimen | | (specimen) | + + + +---------+ + + | Performing | Address | City/State/Zipcode | Phone Number | | Organization | | | | + +---------+ + + | EXTERNAL LAB | | | | + +---------+ + + CT Angiogram Chest Abdomen w Contrast (02/27/2014 11:21 PM PDT) + + | Specimen | + + | | + + + + + | Impressions | Performed At | + + + | 1. 4 cm aneurysmal dilatation of the ascending thoracic aorta. | | | This may be followed sequentially at 6 month intervals with | | | noncontrast CT of the chest. 2. Prior low back and neck | | | surgeries. Pacemaker. 3. Fatty infiltration of the liver. 4. | | | No renal stenoses or obstructions identified and no evidence of | | | dissection. 5. 2 left renal arteries. | | + + + + + + | Narrative | Performed At | + + + | [facility] CTA CHEST ABDOMEN W CONTRAST 02/27/2014 11:21 PM | | | HISTORY: 54 years. Male. Chest pain. Evaluate for dissection | | | TECHNIQUE: 5-mm axial images were acquired without intravenous | | | contrast. Subsequently axial 0.625 mm arterial phase images were | | | acquired through the chest and abdomen according to a CT angiography | | | protocol. Multiplanar CT angiographic MIP reconstructions were | | | performed from the arterial phase data set. 3-D reconstructions were | | | performed using the [employer] 3-D software and sent to PACS. Oral | | | Contrast: None IV contrast: 100 mL IsoVue 370 COMPARISON: None. | | | FINDINGS: CHEST: The pewter finisher view shows a pacemaker via left | | | side, prior neck surgery and prior lumbar surgery The thyroid is | | | symmetric and shows no evidence of a solid or cystic mass. | | | Noncontrast study shows 4 cm aneurysmal dilatation of the miguel | | | ascending thoracic aorta. No evidence of dissection no asymmetry or | | | displacement of plaque No bulky adenopathy is seen in the lower lydia | | | stations of the neck, axillary regions, mediastinum or hilar regions. | | | The pulmonary arteries are normal in caliber. No intraluminal | | | filling defects are seen to suggest the presence of pulmonary | | | emboli. The heart is normal in size. No pericardial abnormality | | | is noted. No filling defects are seen in the chambers of the heart | | | to suggest clot or tumor. The lungs are well aerated. No acute | | | airspace disease, parenchymal nodule, mass, pleural effusion or | | | pneumothorax is noted. No bronchiectasis is seen. The thoracic | | | esophagus is normal. No hiatal hernia is seen. ABDOMEN: The | | | liver is normal in size, position, contour but attenuation is somewhat | | | low, suggesting fatty infiltration. No solid or cystic masses are | | | noted. No intrahepatic biliary ductal enlargement is seen. The | | | portal vein and hepatic veins are normal. The spleen is normal in | | | size and attenuation. No solid or cystic masses are noted. The | | | pancreas is normal in size and attenuation. No solid or cystic | | | masses are noted. The gallbladder is normal in size. No stones, | | | sludge or wall thickening is noted. The adrenal glands are normal | | | in size bilaterally. There is no evidence of an adrenal adenoma or | | | hyperplasia. The kidneys are symmetric in size bilaterally and | | | show no evidence of a solid or cystic mass. No hydronephrosis is | | | noted. No stones are seen in the collecting systems. No free | | | fluid or free air is present. No adenopathy is seen in the abdomen | | | or pelvis. The stomach, duodenum, jejunum, ileum, ileocecal valve | | | are normal. No air-fluid levels are seen to suggest obstruction. | | | The appendix is not discretely visualized and may be surgically | | | absent. The ascending colon, transverse colon, descending colon, | | | sigmoid colon and rectum demonstrate normal wall thickness. No | | | diverticulosis is noted. The muscles of the chest are symmetric. | | | No focal atrophy or soft tissue mass is seen. The osseous | | | structures of the chest do not demonstrate lytic or blastic lesions. | | | CTA CHEST: A left-sided aortic arch is noted with a 3 vessel arch | | | configuration. No dissection, aneurysm or stenosis is seen in the | | | aorta or great vessels. Ascending Aorta: Mild mixed calcified and | | | soft plaque identified. No evidence of aneurysm, dissection or | | | stenosis. Right Brachiocephalic: Mild mixed calcified and soft plaque | | | identified. No evidence of aneurysm, dissection or stenosis. | | | Right Common Carotid: Mild mixed calcified and soft plaque identified. | | | No evidence of aneurysm, dissection or stenosis. Right | | | Subclavian: Mild mixed calcified and soft plaque identified. No | | | evidence of aneurysm, dissection or stenosis. Left Common Carotid: | | | Mild mixed calcified and soft plaque identified. No evidence of | | | aneurysm, dissection or stenosis. Left Subclavian: Mild mixed | | | calcified and soft plaque identified. No evidence of aneurysm, | | | dissection or stenosis. Descending Aorta: Mild mixed calcified and | | | soft plaque identified. No evidence of aneurysm, dissection or | | | stenosis. CTA ABDOMEN: Aorta: Mild mixed calcified and soft | | | plaque identified. No evidence of aneurysm, dissection or stenosis. | | | Celiac: Mild mixed calcified and soft plaque identified. No | | | evidence of aneurysm, dissection or stenosis. SMA: Mild mixed | | | calcified and soft plaque identified. No evidence of aneurysm, | | | dissection or stenosis. QASIM : Mild mixed calcified and soft plaque | | | identified. No evidence of aneurysm, dissection or stenosis. Right | | | Renal: Mild mixed calcified and soft plaque identified. No | | | evidence of aneurysm, dissection or stenosis. Left Renal: 2 left | | | renal arteries. No stenoses identified Right Lower Extremity | | | Common Iliac: Normal. Left Lower Extremity Common Iliac: Normal. | | | | | + + + + + | Procedure Note | + + | Kevin, Rad Conversion - 07/07/2019 10:30 PM PDT [facility]ON[facility] CHEST ABDOMEN W | | CONTRAST02/27/2014 11:21 PM HISTORY:54 years. Male. Chest pain. Evaluate for dissection | | TECHNIQUE:5-mm axial images were acquired without intravenous contrast. Subsequently | | axial 0.625 mm arterial phase images were acquired through the chest and abdomen | | according to a CT angiography protocol. Multiplanar CT angiographic MIP reconstructions | | were performed from the arterial phase data set. 3-D reconstructions were performed | | using the [employer] 3-D software and sent to PACS. Oral Contrast: NoneIV contrast: 100 | | mL IsoVue 370 COMPARISON:None. FINDINGS: CHEST: The pewter finisher view shows a pacemaker via | | left side, prior neck surgery and prior lumbar surgeryThe thyroid is symmetric and shows | | no evidence of a solid or cystic mass.Noncontrast study shows 4 cm aneurysmal | | dilatation of the miguel ascending thoracic aorta. No evidence of dissection no asymmetry | | or displacement of plaqueNo bulky adenopathy is seen in the lower lydia stations of the | | neck, axillary regions, mediastinum or hilar regions. The pulmonary arteries are normal | | in caliber. No intraluminal filling defects are seen to suggest the presence of | | pulmonary emboli. The heart is normal in size. No pericardial abnormality is noted. No | | filling defects are seen in the chambers of the heart to suggest clot or tumor. The | | lungs are well aerated. No acute airspace disease, parenchymal nodule, mass, pleural | | effusion or pneumothorax is noted. No bronchiectasis is seen. The thoracic esophagus is | | normal. No hiatal hernia is seen. ABDOMEN:The liver is normal in size, position, | | contour but attenuation is somewhat low, suggesting fatty infiltration. No solid or | | cystic masses are noted. No intrahepatic biliary ductal enlargement is seen. The | | portal vein and hepatic veins are normal. The spleen is normal in size and attenuation. | | No solid or cystic masses are noted. The pancreas is normal in size and attenuation. | | No solid or cystic masses are noted. The gallbladder is normal in size. No stones, | | sludge or wall thickening is noted. The adrenal glands are normal in size bilaterally. | | There is no evidence of an adrenal adenoma or hyperplasia. The kidneys are symmetric in | | size bilaterally and show no evidence of a solid or cystic mass. No hydronephrosis is | | noted. No stones are seen in the collecting systems. No free fluid or free air is | | present. No adenopathy is seen in the abdomen or pelvis. The stomach, duodenum, jejunum, | | ileum, ileocecal valve are normal. No air-fluid levels are seen to suggest | | obstruction. The appendix is not discretely visualized and may be surgically absent. | | The ascending colon, transverse colon, descending colon, sigmoid colon and rectum | | demonstrate normal wall thickness. No diverticulosis is noted. The muscles of the chest | | are symmetric. No focal atrophy or soft tissue mass is seen. The osseous structures of | | the chest do not demonstrate lytic or blastic lesions. CTA CHEST:A left-sided aortic | | arch is noted with a 3 vessel arch configuration. No dissection, aneurysm or stenosis | | is seen in the aorta or great vessels.Ascending Aorta: Mild mixed calcified and soft | | plaque identified. No evidence of aneurysm, dissection or stenosis.Right | | Brachiocephalic: Mild mixed calcified and soft plaque identified. No evidence of | | aneurysm, dissection or stenosis.Right Common Carotid: Mild mixed calcified and soft | | plaque identified. No evidence of aneurysm, dissection or stenosis.Right Subclavian: | | Mild mixed calcified and soft plaque identified. No evidence of aneurysm, dissection | | or stenosis.Left Common Carotid: Mild mixed calcified and soft plaque identified. No | | evidence of aneurysm, dissection or stenosis.Left Subclavian: Mild mixed calcified and | | soft plaque identified. No evidence of aneurysm, dissection or stenosis.Descending | | Aorta: Mild mixed calcified and soft plaque identified. No evidence of aneurysm, | | dissection or stenosis. CTA ABDOMEN:Aorta: Mild mixed calcified and soft plaque | | identified. No evidence of aneurysm, dissection or stenosis.Celiac: Mild mixed | | calcified and soft plaque identified. No evidence of aneurysm, dissection or | | stenosis.SMA: Mild mixed calcified and soft plaque identified. No evidence of | | aneurysm, dissection or stenosis.QASIM : Mild mixed calcified and soft plaque identified. | | No evidence of aneurysm, dissection or stenosis.Right Renal: Mild mixed calcified and | | soft plaque identified. No evidence of aneurysm, dissection or stenosis.Left Renal: 2 | | left renal arteries. No stenoses identified Right Lower ExtremityCommon Iliac: Normal. | | Left Lower ExtremityCommon Iliac: Normal. IMPRESSION: 1. 4 cm aneurysmal dilatation of | | the ascending thoracic aorta. This may be followed sequentially at 6 month intervals | | with noncontrast CT of the chest. 2. Prior low back and neck surgeries. Pacemaker. 3. | | Fatty infiltration of the liver. 4. No renal stenoses or obstructions identified and no | | evidence of dissection. 5. 2 left renal arteries. | |Right Common Carotid: Mild mixed calcified and soft plaque identified. No evidence of ane urysm, dissection or stenosis. | |Right Subclavian: Mild mixed calcified and soft plaque identified. No evidence of aneurys m, dissection or stenosis. | |Left Common Carotid: Mild mixed calcified and soft plaque identified. No evidence of aneu rysm, dissection or stenosis. | |Left Subclavian: Mild mixed calcified and soft plaque identified. No evidence of aneurysm , dissection or stenosis. | |Descending Aorta: Mild mixed calcified and soft plaque identified. No evidence of aneurys m, dissection or stenosis. | | | |CTA ABDOMEN: | |Aorta: Mild mixed calcified and soft plaque identified. No evidence of aneurysm, dissecti on or stenosis. | |Celiac: Mild mixed calcified and soft plaque identified. No evidence of aneurysm, dissect ion or stenosis. | |SMA: Mild mixed calcified and soft plaque identified. No evidence of aneurysm, dissection or stenosis. | |QASIM : Mild mixed calcified and soft plaque identified. No evidence of aneurysm, dissectio n or stenosis. | |Right Renal: Mild mixed calcified and soft plaque identified. No evidence of aneurysm, di ssection or stenosis. | |Left Renal: 2 left renal arteries. No stenoses identified | | | |Right Lower Extremity | |Common Iliac: Normal. | | | |Left Lower Extremity | |Common Iliac: Normal. | | | |IMPRESSION: | |1. 4 cm aneurysmal dilatation of the ascending thoracic aorta. This may be followed sequen tially at 6 month intervals with noncontrast CT of the chest. | | | |2. Prior low back and neck surgeries. Pacemaker. | | | |3. Fatty infiltration of the liver. | | | |4. No renal stenoses or obstructions identified and no evidence of dissection. | | | |5. 2 left renal arteries. | | | | | + + XR Chest 2 Vws (02/27/2014 5:58 PM PDT) + + | Specimen | + + | | + + + + + | Impressions | Performed At | + + + | 1. No acute findings in the chest to explain chest pain. 2. | | | 2-lead ICD seen over the left chest with intact leads in proper | | | position. 3. Prior lower cervical anterior and posterior fusion | | | noted. | | | 6:32 PM | | + + + + + + | Narrative | Performed At | + + + | PINA GAY XR CHEST 2 VIEW FRONTAL AND LATERAL 02/27/2014 5:58 PM | | | HISTORY: 54 years. Male. Chest pain. TECHNIQUE: 2 views | | | obtained. COMPARISON: 05/24/2009. FINDINGS: A 2-lead ICD | | | seen over the left chest with intact leads in proper position. The | | | patient has had prior lower cervical fusion surgery with ACDF plating | | | and screws noted anteriorly and posterior instrumentation also seen. | | | The heart is normal in size. The lungs are normally expanded. The | | | pulmonary vascular pattern is normal. No acute airspace disease, | | | parenchymal nodule, mass, pleural effusion or pneumothorax is noted. | | | No hilar adenopathy is seen. The osseous structures are intact. | | | | | + + + + + | Procedure Note | + + | Kevin Kalpesh Conversion - 07/07/2019 10:30 PM PDT PINA LEVINE CHEST 2 VIEW FRONTAL | | AND LATERAL02/27/2014 5:58 PM HISTORY:54 years. Male. Chest pain. TECHNIQUE:2 views | | obtained. COMPARISON:05/24/2009. FINDINGS:A 2-lead ICD seen over the left chest with | | intact leads in proper position. The patient has had prior lower cervical fusion | | surgery with ACDF plating and screws noted anteriorly and posterior instrumentation also | | seen.The heart is normal in size. The lungs are normally expanded. The pulmonary | | vascular pattern is normal. No acute airspace disease, parenchymal nodule, mass, | | pleural effusion or pneumothorax is noted. No hilar adenopathy is seen. The osseous | | structures are intact. IMPRESSION: 1. No acute findings in the chest to explain chest | | pain.2. 2-lead ICD seen over the left chest with intact leads in proper position.3. | | Prior lower cervical anterior and posterior fusion noted. | | | |FINDINGS: | |A 2-lead ICD seen over the left chest with intact leads in proper position. The patient paulino s had prior lower cervical fusion surgery with ACDF plating and screws noted anteriorly and posterior instrumentation also seen. | |The heart is normal in size. The lungs are normally expanded. The pulmonary vascular alan felecia is normal. No acute airspace disease, parenchymal nodule, mass, pleural effusion or pne umothorax is noted. No hilar adenopathy is seen. The osseous | |structures are intact. | | | |IMPRESSION: | |1. No acute findings in the chest to explain chest pain. | |2. 2-lead ICD seen over the left chest with intact leads in proper position. | |3. Prior lower cervical anterior and posterior fusion noted. | | | | | + + HISTORICAL LAB PANEL RESULT (02/27/2014 5:47 PM PDT) + + + + + -+ | Component | Value | Ref Range | Performed | Pathologist | | | | | At | Signature | + + + + + -+ | WBC | 10.1Comment: Testing | 3.8 - 11.0 K/uL | EXTERNAL | | | | performed at [facility];888 | | LAB | | | | [address];[place] | | | | | | [address] | | | | + + + + + -+ | RED CELL | 5.19Comment: Testing | 4.20 - 5.70 | EXTERNAL | | | COUNT | performed at [facility];888 | M/uL | LAB | | | | [address];[place] | | | | | | [address] | | | | + + + + + -+ | Hgb | 16.8Comment: Testing | 13.2 - 17.0 | EXTERNAL | | | | performed at [facility];888 | g/dL | LAB | | | | [address];[place] | | | | | | [address] | | | | + + + + + -+ | Hematocrit, | 49.5Comment: Testing | 39.0 - 50.0 % | EXTERNAL | | | POC | performed at [facility];[address] | | LAB | | | | [address];[place] | | | | | | [address] | | | | + + + + + -+ | MCV | 95.4Comment: Testing | 80.0 - 100.0 fl | EXTERNAL | | | | performed at [facility];888 | | LAB | | | | [address];[place] | | | | | | [address] | | | | + + + + + -+ | MCH | 32.4Comment: Testing | 27.0 - 34.0 pg | EXTERNAL | | | | performed at [facility];888 | | LAB | | | | [address];[place] | | | | | | [address] | | | | + + + + + -+ | MCHC | 34.0Comment: Testing | 32.0 - 35.5 | EXTERNAL | | | | performed at [facility];888 | g/dL | LAB | | | | [address];[place] | | | | | | [address] | | | | + + + + + -+ | RDW-CV | 46.8Comment: Testing | 37 - 53 fl | EXTERNAL | | | | performed at [facility];[address] | | LAB | | | | [address];[place] | | | | | | [address] | | | | + + + + + -+ | Platelet | 179Comment: Testing | 150 - 400 K/uL | EXTERNAL | | | Count | performed at [facility];[address] | | LAB | | | Plasma | [address];[place] | | | | | | [address] | | | | + + + + + -+ | MPV | 8.6Comment: Testing | fl | EXTERNAL | | | | performed at [facility];[address] | | LAB | | | | [address];[place] | | | | | | [address] | | | | + + + + + -+ | Differentia | AUTOMATEDComment: | | EXTERNAL | | | l Type | Testing performed at | | LAB | | | | [facility];[address] | | [address];[place] [address] | | | | + + + + + -+ | % Segmented | 62.4Comment: Testing | % | EXTERNAL | | | | performed at [facility];[address] | | LAB | | | Neutrophils | [address];[place] | | | | | | [address] | | | | + + + + + -+ | % | 26.3Comment: Testing | % | EXTERNAL | | | Lymphocytes | performed at [facility];[address] | | LAB | | | | [address];[place] | | | | | | [address] | | | | + + + + + -+ | % Monocytes | 10.3Comment: Testing | % | EXTERNAL | | | | performed at [facility];[address] | | LAB | | | | [address];[place] | | | | | | [address] | | | | + + + + + -+ | % | 0.5Comment: Testing | % | EXTERNAL | | | Eosinophils | performed at [facility];[address] | | LAB | | | | [address];[place] | | | | | | [address] | | | | + + + + + -+ | % Basophils | 0.5Comment: Testing | % | EXTERNAL | | | | performed at [facility];[address] | | LAB | | | | [address];[place] | | | | | | [address] | | | | + + + + + -+ | Absolute | 6.3Comment: Testing | 1.9 - 7.4 K/uL | EXTERNAL | | | Segmented | performed at [facility];[address] | | LAB | | | Neutrophils | [address];[place] | | | | | | [address] | | | | + + + + + -+ | Absolute | 2.7Comment: Testing | 1.0 - 3.9 K/uL | EXTERNAL | | | Lymphocytes | performed at [facility];888 | | LAB | | | | [address];[place] | | | | | | [address] | | | | + + + + + -+ | Absolute | 1.0 (H)Comment: Testing | 0 - 0.8 K/uL | EXTERNAL | | | Monocytes | performed at [facility];888 | | LAB | | | | [address];[place] | | | | | | [address] | | | | + + + + + -+ | Absolute | 0.0Comment: Testing | 0 - 0.5 K/uL | EXTERNAL | | | Eosinophils | performed at [facility];[address] | | LAB | | | | [address];[place] | | | | | | [address] | | | | + + + + + -+ | Absolute | 0.1Comment: Testing | 0 - 0.1 K/uL | EXTERNAL | | | Basophils | performed at [facility];[address] | | LAB | | | | [address];[place] | | | | | | [address] | | | | + + + + + -+ | Na | 139Comment: Testing | 135 - 143 | EXTERNAL | | | | performed at [facility];888 | mmol/L | LAB | | | | [address];[place] | | | | | | [address] | | | | + + + + + -+ | K | 3.4 (L)Comment: Testing | 3.5 - 4.9 | EXTERNAL | | | | performed at [facility];888 | mmol/L | LAB | | | | [address];[place] | | | | | | [address] | | | | + + + + + -+ | Cl | 108Comment: Testing | 99 - 109 mmol/L | EXTERNAL | | | | performed at [facility];[address] | | LAB | | | | [address];[place] | | | | | | [address] | | | | + + + + + -+ | CO2 | 21 (L)Comment: Testing | 23 - 32 mmol/L | EXTERNAL | | | | performed at [facility];[address] | | LAB | | | | [address];[place] | | | | | | [address] | | | | + + + + + -+ | Anion Gap | 14Comment: Testing | 5 - 20 mmol/L | EXTERNAL | | | | performed at [facility];[address] | | LAB | | | | [address];[place] | | | | | | [address] | | | | + + + + + -+ | Glucose, | 124 (H)Comment: Testing | 65 - 99 mg/dL | EXTERNAL | | | Fasting | performed at [facility];[address] | | LAB | | | | [address];[place] | | | | | | [address] | | | | + + + + + -+ | BUN | 20Comment: Testing | 8 - 25 mg/dL | EXTERNAL | | | | performed at [facility];[address] | | LAB | | | | [address];[place] | | | | | | [address] | | | | + + + + + -+ | Creatinine | 0.97Comment: Testing | 0.70 - 1.30 | EXTERNAL | | | | performed at [facility];888 | mg/dL | LAB | | | | [address];[place] | | | | | | [address] | | | | + + + + + -+ | BUN/Creatin | 21Comment: Testing | | EXTERNAL | | | ine Ratio | performed at [facility];[address] | | LAB | | | | [address];[place] | | | | | | [address] | | | | + + + + + -+ | Calcium | 8.7Comment: Testing | 8.5 - 10.2 | EXTERNAL | | | | performed at [facility];888 | mg/dL | LAB | | | | [address];[place] | | | | | | [address] | | | | + + + + + -+ | Protein, | 7.6Comment: Testing | 6.3 - 8.2 g/dL | EXTERNAL | | | Total | performed at [facility];[address] | | LAB | | | | [address];[place] | | | | | | [address] | | | | + + + + + -+ | Albumin | 4.2Comment: Testing | 3.6 - 5.0 g/dL | EXTERNAL | | | | performed at [facility];888 | | LAB | | | | [address];[place] | | | | | | [address] | | | | + + + + + -+ | Globulin | 3.4Comment: Testing | 1.3 - 4.9 g/dL | EXTERNAL | | | | performed at [facility];[address] | | LAB | | | | [address];[place] | | | | | | [address] | | | | + + + + + -+ | A/G Ratio | 1.2Comment: Testing | 1.0 - 2.4 | EXTERNAL | | | | performed at [facility];[address] | | LAB | | | | [address];[place] | | | | | | [address] | | | | + + + + + -+ | Bilirubin | 1.1Comment: Testing | 0.1 - 1.5 mg/dL | EXTERNAL | | | Total | performed at [facility];[address] | | LAB | | | | [address];[place] | | | | | | [address] | | | | + + + + + -+ | ALP, | 77Comment: Testing | 35 - 115 U/L | EXTERNAL | | | External | performed at [facility];[address] | | LAB | | | | [address];[place] | | | | | | [address] | | | | + + + + + -+ | AST | 35Comment: Testing | 10 - 45 U/L | EXTERNAL | | | | performed at [facility];[address] | | LAB | | | | [address];[place] | | | | | | [address] | | | | + + + + + -+ | ALT | 43Comment: Testing | 10 - 65 U/L | EXTERNAL | | | | performed at [facility];[address] | | LAB | | | | [address];[place] | | | | | | [address] | | | | + + + + + -+ | Estimated | >60Comment: GFR <60: | mL/min/1.73m2 | EXTERNAL | | | GFR | CHRONIC KIDNEY DISEASE, | | LAB | | | | IF FOUND OVER A 3 MONTH | | | | | | PERIOD.GFR <15: KIDNEY | | | | | | FAILURE.FOR | | | | | | AMERICANS, MULTIPLY THE | | | | | | CALCULATED GFR BY | | | | | | 1.210.Testing performed | | | | | | at [facility];[address] | | | | [address];[place] [address] | | | | + + + + + -+ | CK, Total | 510 (H)Comment: Testing | 55 - 400 U/L | EXTERNAL | | | | performed at [facility];[address] | | LAB | | | | [facility] | | | | | | [address] | | | | + + + + + -+ | INR | 1.0Comment: REFERENCE | | EXTERNAL | | | | RANGE:0.9 - 1.2 | | LAB | | | | NON-ANTICOAGULATED2.0 | | | | | | - 3.0 ALL OTHER | | | | | | THERAPEUTIC | | | | | | INDICATIONS2.5 - 3.5 | | | | | | MECHANICAL HEART VALVES, | | | | | | RECURRENT OR SYSTEMIC | | | | | | EMBOLISMTesting | | | | | | performed at [facility];[address] | | | | | | [facility] | | | | | | [address] | | | | + + + + + -+ | aPTT, | 24Comment: Testing | 23 - 32 seconds | EXTERNAL | | | Patient | performed at [facility];[address] | | LAB | | | | [address];[place] | | | | | | [address] | | | | + + + + + -+ | CK-MB | 9.3 (H)Comment: Testing | 0.5 - 3.6 ng/mL | EXTERNAL | | | | performed at [facility];[address] | | LAB | | | | [address];[place] | | | | | | [address] | | | | + + + + + -+ | CK-MB Index | 1.8Comment: CK INDEX | | EXTERNAL | | | | INTERPRETATION: | | LAB | | | | MMB ng/mL | | | | | | | | | | | |CK INDEX INTERPRETATION: | | | | | | MMB ng/mL | | | | | | | | | | + + + + + -+ + + | Specimen | + + | | + + + +---------+ + + | Performing | Address | City/State/Zipcode | Phone Number | | Organization | | | | + +---------+ + + | EXTERNAL LAB | | | | + +---------+ + + TSH (02/27/2014 5:47 PM PDT) + + + + + + | Component | Value | Ref Range | Performed | Pathologist | | | | | At | Signature | + + + + + + | TSH | 0.91Comment: Testing | 0.45 - 5.10 | EXTERNAL | | | | performed at [facility];[address] | uIU/mL | LAB | | | | [address];[place], [place] | | | | | | [address] | | | | + + + [...] +---------+ + + B Type Natriuretic Peptide (02/27/2014 5:47 PM PDT) + + + + + + | Component | Value | Ref Range | Performed | Pathologist | | | | | At | Signature | + + + + + + | BNP | 5.7Comment: Testing | 0 - 100 pg/mL | EXTERNAL | | | | performed at [facility] | | LAB | | | | [address];[place] | | | | | | [address] | | | | + + + [...] + +---------+ + + ECG 12 lead (02/27/2014 5:23 PM PDT) + + + + + + | Component | Value | Ref Range | Performed | Pathologist | | | | | At | Signature | + + + + + + | DIAGNOSIS: | Atrial-paced | | EXTERNAL | | | | rhythmAbnormal ECGWhen | | LAB | | | | compared with ECG of | | | | | | 21-JAN-2010 | | | | | | 19:40,Electronic atrial | | | | | | pacemaker has replaced | | | | | | Sinus rhythmThis ECG | | | | | | contains Unconfirmed | | | | | | Interpretation | | | | | | Statements. See ED | | | | | | Record for Physician | | | | | | Interpretation. | | | | | | Confirmed by MUSE READ | | | | | | ONLY, -COMPUTER ([id number]), | | | | | | editorial manager TERESE NINA ([id number]) | | | | | | on 02/27/2014 6:56:17 PM | | | | + + + + + + + + | Specimen | + + | | + + + + + | Narrative | Performed At | + + + | Historically converted procedure from [employer] environment | EXTERNAL LAB | + + + + +---------+ + + | Performing | Address | City/State/Zipcode | Phone Number | | Organization | | | | + +---------+ + + | EXTERNAL LAB | | | | + +---------+ + + documented in this encounter Visit Diagnoses + + | Diagnosis | + + | Chest pain Chest pain, unspecified | + + | Pacemaker Cardiac pacemaker in situ | + + | Mild dehydration Dehydration | + + documented in this encounter
--- OUTSIDE RECORDS SUMMARY | ~2019-12-06 | XMS | Encounter Summary ---
Demographics + + + | Address | [address] | | | [place] [address] | + + + | Home Phone [...] Team Providers + +------+ + | Care Double Head Machine Operator Name | Role | Phone [...] type ER | [address] | [address] | | | | | FUP | [place] | [place], | | | | | Procedures | [place], [place] | [place] [address] | | | | | FUP - SUW & | [address] | Phone: | | | | | EVM PT, LAST | Phone: | [phone] | | | | | SEEN | [phone] | Fax: | | | | | 08-24-18 | Fax: | [phone] | | | | | | [phone] | | +--------+ + + + + [...] | | | | CENTER [address] | [address] [place] | (Primary Dx) | | | | [place], [place] | [place] [address] | | | | | [address] | [phone] | | | | | [phone] | | | +--------+ + + + [...] through Care Everywhere.Chest Pain, Unc ertain Cause (Slovenian)documented in this encounter Medications at Time of [...] + + + +---------+ + + | [place]-3 Fatty | CAPS, one capsule by | [...] | | | | | [place] [address] | | | | | | [phone] | | | | | | | | +--------+---------+ + + + | 01/01/ | Office | Cardiology | Sil[place], | | | 2019 | Visit | | [facility] [address] | | | | | | [place] | | | | | | [place] [address] | | | | | | [phone] | | | | | | | [...] | | | | ANGELA MARADIAGA MD ([id number]) | | | | | | on [...] [address] | [place] | [phone] | | [facility] | | [address] | | | - LABORATORY | | [...] + | [facility] | [address] | [place] | [phone] | | [facility] | | [address] | | | - LABORATORY | | [...] | Urine | | Yellow, Straw | [facility] | | | [...] - 1.030 | [facility] | | | [place] | | | [facility] | | [...] [address] | [place] | [phone] | | [facility] | | [address] | | | - LABORATORY | | [...] 2.0 | 1.8 - 2.5 mg/dL | [facility] | | | | | | MICHELLE [...] [address] | [place] | [phone] | | [facility] | | [address] | | | - LABORATORY | | [...] [address] | [place] | [phone] | | [facility] | | [address] | | | - LABORATORY | | [...] + | [facility] | [address] | [place] | [phone] | | [facility] | | [address] | | | - LABORATORY | | [...] 13 | 7 - 18 mg/dL | [facility] | | | | | [facility] | | | | | | MEDICAL | | | | | | CENTER - | | | | | | LABORATORY | | + + + + + + | Creatinine | 0.96 | 0.60 - 1.30 | [facility] | [...] | FILTRATION | mL/min/1.73m2 | [facility] | | | BOLIVIAN | RATE,ESTIMATED | | MEDICAL | | | | mL/min/1.10c0Ftsr than | | CENTER - | | [...] | 9.0 | 8.3 - 10.5 | [facility] | | | | | mg/dL | [facility] | | | | | | MEDICAL | | | | | | CENTER - | | | | | | LABORATORY | | + + + + + + | Albumin | 4.1 | 3.2 - 5.0 g/dL | [facility] | | | | | | ST. [...] + | [facility] | [address] | [place] | [phone] | | [facility] | | [address] | | | - LABORATORY | | | | + + + + + CBC with Differential (01/02/2019 6:17 PM PST) + + + + + + | Component | Value | Ref Range | Performed | Pathologist | | | | | At | Signature | + + + + + + | WBC | 7.2 | 4.0 - 11.0 K/uL | [facility] [...] | | | M/uL | [facility] | | | [...] | Low IPF are consistent | | [facility] | | | Fraction | with a [...] | Immature | | K/uL | [facility] | | | Granulocyte | | | [...] [address] | [place] | [phone] | | [facility] | | [address] | | | - LABORATORY | | [...] | | | | ANGELA MARADIAGA MD ([id number]) | | | | | | on [...] | | | | | Oral, ONCE, Wed01/02/19 at 1920, | | | | | | | For 1 dose, Mix lidocaine and | | | | | | | Maalox. Kalia argueta., | | | | | | + +--------+ +--------+------+------+ +---+---+ | | | +---+---+ + +-------+ +--------+---+---+ | lidocaine (XYLOCAINE) 2% | Given | 01/02/20 | 10 mLs | | | | viscous solution 10 mL 10 mL, | | 19 7:40 | | | | | Oral, ONCE, Wed01/02/19 at 1920, | | PM PST | [...]
--- OUTSIDE RECORDS SUMMARY | ~2019-12-06 | XMS | Encounter Summary ---
Demographics + + + | Address | [address] | | | [place] [address] | + + + | Home Phone [...] Team Providers + +------+ + | Care Histotechnologist Supervisor Name | Role | Phone | [...] 2019 | | GASTROENTEROLOGY | [address] | | | | | [address] | [place]. [place] | | | | | [address] [place] | [place] [address] | | | | | [address] | | | | | | [phone] | | | +--------+ + + + [...] | | | | | [place] [address] | | | | | | [phone] | | | | | | | | +--------+---------+ + + + | 01/01/ | Office | Cardiology | Silvia, | | | 2019 | Visit | | [facility] [address] | | | | | | [place], | | | | | | [place] [address] | | | | | | [phone] | | | | | | | [...] | | | | | Emmanuel Daniel [facility] | | | | + + + [...]
--- OUTSIDE RECORDS SUMMARY | ~2019-12-06 | XMS | Encounter Summary ---
Demographics + + + | Address | [address] | | | [place] [address] | + + + | Home Phone [...] Team Providers + +------+ + | Care Shuttle Final Inspector Name | Role | Phone | + +------+ + | Kirk French MD | PCP | | + +------+ + Encounter Details +--------+ + + + + | Date | Type | Department | Care Team | Description | +--------+ + + + + | 08/29/ | Hospital | [facility] | [place] | DVT (deep venous | | 2015 | Encounter | [facility] | [facility] [place] [address] | thrombosis), | | | | [address] [place] | [address] [place], | bilateral (HCC) | | | | [place], [place] | [place] [address] | | | | | [address] | [phone] | | | | | [phone] | | | +--------+ + + + [...] + + + +---------+ + + | [place]-3 Fatty | CAPS, one capsule by | [...] | 3 | 06/26/20 | | | (NORVASC) 10 MG | mouth Daily. | tablet | | 15 | 6 [...] +---------+ + + | ciprofloxacin | Take 500 mg by mouth | | 0 | | | | (CIPRO) 500 mg | 2 times daily. | | | | 6 | | tablet | PATIENT STATED NO | | | | | | | LONGER TAKING THIS | | | | | | | MEDICATION. STATED | | | | | | | ON 08/29/2015. | | | | | + + [...] + + + +---------+ + + | furosemide (LASIX) | Take 1 tablet by | 7 | 0 | 08/23/20 | | | 40 mg tablet | mouth Daily. | tablet | | 15 | 6 | + + + +---------+ + + | gabapentin | Take 1 tablet by | | 0 | 06/21/20 | | | (NEURONTIN) 600 MG | mouth 3 times daily. | | | 15 | [...] + + + +---------+ + + | potassium chloride | Take 1 tablet by | 7 | 0 | 08/23/20 | | | (K-DUR) 20 mEq ER | mouth Daily for 7 | tablet | | 15 | 5 | | tablet | days. | | | | | [...] | | | | | | | #[id number], exp 07/2016 | | | | | + + + +---------+ + + | Specialty Vitamins | Take 2 tablets by | | 0 | | | | Products (PROSTATE) | mouth Daily. PATIENT | | | | 6 | | TABS | STATED NO LONGER | | | | | | | TAKING THIS | | | | | | | MEDICATION. STATED | | | | | | | ON 08/29/2015. | | | | | + + + +---------+ + + | UNABLE TO FIND | Take 1 tablet by | | 0 | | | | | mouth Daily. | | | | 6 | | | [employer] | | | | | + + [...] | | | | | | [place] [address] | | | | | | [phone] | | | | | | | | +--------+---------+ + + + | 01/01/ | Office | Cardiology | Silvia, | | | 2019 | Visit | | [facility] [address] | | | | | | [place], | | | | | | [place] [address] | | | | | | [phone] | | | | | | | | +--------+---------+ + + + documented as of this encounter Procedures + +--------+ + + + | Procedure Name | Priori | Date/Time | Associated Diagnosis | Comments | | | ty | | | | + +--------+ + + + | VAS LOWER EXTREMITY | STAT | 08/29/2015 | DVT (deep venous | Results for this | | VENOUS BILATERAL | | 2:45 PM | thrombosis), | procedure are in the | | | | PDT | bilateral (HCC) | results section. | + +--------+ + + + documented in this encounter Results VAS Lower Extremity Venous Bilateral (08/29/2015 2:45 PM PDT) + + | Specimen | + + | | + + + + + | Narrative | Performed At | + + + | EXAM: VAS LOWER EXTREMITY VENOUS BILATERAL dated 08/29/2015 1:45 PM. | [facility] | | HISTORY: DVT. COMPARISON: None. TECHNIQUE: Compression | [facility] | | sonography was performed from the groin through the popliteal fossa | [facility] | | in both lower [...] conveyed to the ordering provider, by the operations liaison, | | | immediately following the exam. Dictated and Signed by: Emmanuel Hunter | | | MD Edwige Electronically signed: 08/29/2015 [...] to the ordering provider, by the | |operations liaison, immediately following the exam. | | | [...] [address] | [place] | [phone] | | [facility] | | [id number] | | | - IMAGING | | | | + + + + + documented in this encounter Visit Diagnoses + + | Diagnosis | + + | DVT (deep venous thrombosis), bilateral | + + documented in this encounter"
--- OUTSIDE RECORDS SUMMARY | ~2019-12-06 | XMS | Encounter Summary ---
Demographics + + + | Address | [address] | | | [place] [address] | + + + | Home Phone [...] Providers + +------+ + | Care Dental Intern Name | Role | Phone | + +------+ + PCP | Unavailable | + +------+ + Encounter Details +--------+ + + + + | Date | Type | Department | Care Team | Description | +--------+ + + + + | 10/29/ | Hospital | [facility] | Pia Akhtar | | | 2003 | Encounter | CONVERSION [address] | MD [address] | | | | | [address] | [address] | | | | | [place] | [place] [address] | | | | | [address] | [phone] | | | | | [phone] | | | +--------+ + + + [...] | | | | | | [place] [address] | | | | | | [phone] | | | | | | | | +--------+---------+ + + + | 01/01/ | Office | Cardiology | [place], | | | 2020 | Visit | | PARISA Vernon [address] | | | | | | [place], | | | | | | [place] [address] | | | | | | [phone] | | | | | | | | +--------+---------+ + + + documented as of this encounter Visit Diagnoses Not on filedocumented in this encounter"
--- OUTSIDE RECORDS SUMMARY | ~2019-12-06 | XMS | Encounter Summary ---
Demographics + + + | Address | [address] | | | [place] [address] | + + + | Home Phone [...] Team Providers + +------+ + | Care Wood Barrel Reconditioner Name | Role | Phone | + [...] Emergency | YESSY KIM | No, Physician | Patient left after | | 2017 | | [facility] | | triage (Primary Dx) | | | | CENTER [address] | | | | | | [place] | | | | | | [address] | | | | | | [phone] | | | +--------+ + + + [...] + + + +---------+ + + | [employer] Mdl-3 Fatty | CAPS, one capsule by | [...] | | | | | [place] [address] | | | | | | [phone] | | | | | | | | +--------+---------+ + + + | 01/01/ | Office | Cardiology | [place], | | | 2019 | Visit | | PARISA Vernon [address] | | | | | | [place] | | | | | | [place] [address] | | | | | | [phone] | | | | | | | | +--------+---------+ + + + documented as of this encounter Visit Diagnoses + + | Diagnosis | + + | Patient left after triage - Primary | + + documented in this encounter
--- OUTSIDE RECORDS SUMMARY | ~2019-12-06 | XMS | Encounter Summary ---
Demographics + + + | Address | [address] | | | [place] [address] | + + + | Home Phone [...] Team Providers + +------+ + | Care Toll Mechanic Name | Role | Phone | + +------+ + PCP | Unavailable | + +------+ + Encounter Details +--------+ + + + + | Date | Type | Department | Care Team | Description | +--------+ + + + + | 11/12/ | Hospital | [facility] | | | | 1994 | Encounter | [facility] | | | | | | CONV DEPT [address] | | | | | | [place], | | | | | | [place] [address] | | | | | | [phone] | | | +--------+ + + + [...] | 2019 | Visit | | MD Jacke [address] | | | | | | [place] [address] | | | | | | [place] [address] | | | | | | [phone] | | | | | | | | +--------+---------+ + + + | 01/01/ | Office | Cardiology | [place], | | | 2020 | Visit | | PARISA Vernon [address] | | | | | | [place], | | | | | | [place] [address] | | | | | | [phone] | | | | | | | | +--------+---------+ + + + documented as of this encounter Visit Diagnoses Not on filedocumented in this encounter"
--- OUTSIDE RECORDS SUMMARY | ~2019-12-06 | XMS | Encounter Summary ---
Demographics + + + | Address | [address] | | | [place] [address] | + + + | Home Phone [...] Team Providers + +------+ + | Care Field Technical Specialist Name | Role | Phone | [...] 2016 | | CARDIOLOGY [address] | [facility] SPECIALIST [address] | | | | | [place], | [place], [place] | | | | | [place] [address] | [address] | | | | | [phone] | | | +--------+--------+ + + + [...] | | | | | [place] [address] | | | | | | [phone] | | | | | | | | +--------+---------+ + + + | 01/01/ | Office | Cardiology | [place], | | | 2019 | Visit | | PARISA Vernon [address] | | | | | | [place], | | | | | | [place] [address] | | | | | | [phone] | | | | | | | | +--------+---------+ + + + documented as of this encounter Visit Diagnoses Not on filedocumented in this encounter"
--- OUTSIDE RECORDS SUMMARY | ~2019-12-06 | XMS | Encounter Summary ---
Demographics + + + | Address | [address] | | | [place] [address] | + + + | Home Phone [...] Team Providers + +------+ + | Care Closing Supervisor Name | Role | Phone | + +------+ + | Kirk French MD | PCP | | + +------+ + Encounter Details +--------+ + + + + | Date | Type | Department | Care Team | Description | +--------+ + + + + | 12/23/ | Emergency | [facility] | Cristal Alexander, | Chronic neck pain; | | 2015 | | MEDICAL CENTER | DO [address] | Headache(784.0) | | | | EMERGENCY CENTER | [place] [address] | | | | | [address] | [phone] | | | | | [place], [place] | | | | | | [address] | | | | | | [phone] | | | +--------+ + + + [...] + + + +---------+ + + | [place]-3 Fatty | CAPS, one capsule by | [...] | | | | | | | #[id number], exp 07/2016 | | | | | [...] | | | | | [place] [address] | | | | | | [phone] | | | | | | | | +--------+---------+ + + + | 01/01/ | Office | Cardiology | [place], | | | 2019 | Visit | | PARISA Vernon [address] | | | | | | [place], | | | | | | [place] [address] | | | | | | [phone] | | | | | | | [...] Kalpesh Brown Conversion - 07/07/2019 5:05 AM FRANCY [id number] years MaleCT | | CERVICAL SPINE WO [...]
--- OUTSIDE RECORDS SUMMARY | ~2019-12-06 | XMS | Encounter Summary ---
Demographics + + + | Address | [address] | | | [place] [address] | + + + | Home Phone [...] Providers + +------+ + | Care Wood Heel Back Liner Name | Role | Phone | + [...] Provider Unknown | | | | | [place], [place] | [phone] | | | | | [address] | | | | | | [phone] | | | +--------+ + + + [...] + + + +---------+ + + | [place]ullen-3 Fatty | CAPS, one capsule by | [...] | | | | | | | #[id number], exp 07/2016 | | | | | [...] | | | | | [place] [address] | | | | | | [phone] | | | | | | | | +--------+---------+ + + + | 01/01/ | Office | Cardiology | [place], | | | 2019 | Visit | | PARISA Vernon [address] | | | | | | [place] | | | | | | [place] [address] | | | | | | [phone] | | | | | | | [...] encounter Results FL C-Arm < 1 Hour (04/22/2012 11:32 PM PDT) [...]
--- OUTSIDE RECORDS SUMMARY | ~2019-12-06 | XMS | Encounter Summary ---
Demographics + + + | Address | [address] | | | [place] [address] | + + + | Home Phone [...] Team Providers + +------+ + | Care Surgery Aid Name | Role | Phone | [...] + + | [facility]14/ | [facility] | [place], | Coronary artery | | 2013 | Visit | CARDIOLOGY [address] | PAR[place] [address] | disease (Primary | | | | [place], | [place], | Dx); Hypertension; | | | | [place] [address] | [place] [address] | Hyperlipidemia; | | | | [phone] | Syncope; Other chest | | | [...] needed for Chest pain. 25 tablet 12 [place]-3 Fatty Acids (SALMON OIL-1000 PO) CAPS, one capsule by mouth daily twice daily ONE TOUCH DELICA LANCETS [facility] Check glucose as needed for hypoglycemia 100 [...] attenuation cannot completely be ruled out. D. [facility] 12/25/13, shows noncritical coronary artery [...] exercising. He is in class II of [place] 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 There are no [...] ventricular arrhythmia performed by Dr. Gambino at [facility] on 01/30/2013. Patient had spontaneous PVCs [...] to go back in 3 days to [place] for an attempt of ablation under general [...] palpitations.. He is in class II of [place] 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 There are no [...] his blood pressure logs from [facility] 5. Lightheadedness and dizziness/ presyncope: A. [...] made to ensure accuracy; however, inadvertent computerized customer marketing assistant errors may be pre sent. Electronically signed [...] [address] | | | | | | [address] | | | | | | [place] [address] | | | | | | [phone] | | | | | | | | +--------+---------+ + + + | 01/01/ | Office | Cardiology | [place], | | | 2019 | Visit | | PARISA Vernon [address] | | | | | | [place], | | | | | | [place] [address] | | | | | | [phone] | | | | | | | [...] of unspecified type of | | vessel, ambler or graft | + + | Hypertension Unspecified essential hypertension | + + | Hyperlipidemia Other and unspecified hyperlipidemia | + + | Syncope Syncope and collapse | + + | Other chest pain | + + | Chest pain Chest pain, unspecified | + + documented in this encounter
--- OUTSIDE RECORDS SUMMARY | ~2019-12-06 | XMS | Encounter Summary ---
Demographics + + + | Address | [address] | | | [place] [address] | + + + | Home Phone [...] Team Providers + +------+ + | Care Shower Enclosure Installer Name | Role | Phone | [...] + + | 08/17/ | [facility] | Michael Amanda, | Testosterone | | 2012 | Visit | [facility] [place] | DO [address] | deficiency (Primary | | | | [address] | [place] | Dx); Hypoglycemia; | | | | [place] | [address] | Herpes | | | | [address] | | | | | | [phone] | | | +--------+---------+ + + + [...] lowering his testosterone levels. He seen at [facility]. He was prescribed OxyContin and Dilaudid. The [...] erectile dy sfunction. He was seen at [facility] yesterday and they prescribed him testostero ne cypionate injections. He's not sure when they wanted him to come back for labs. He has a followup appointment with [facility] in one month. 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 This note is dictated using [employer] voice recognition software. This note was dictated but not proofread. It may contain some grammatical errors. documented in this en counter Plan of Treatment +--------+---------+ + + + | Date | Type | Specialty | Care Team | Description | +--------+---------+ + + + | 12/18/ | Office | Gastroenterology | Darin Gandhi | | | 2019 | Visit | | MD Jacek [address] | | | | | | [address] [address] | | | | | | [place] [address] | | | | | | [phone] | | | | | | | | +--------+---------+ + + + | 01/01/ | Office | Cardiology | [place], | | | 2019 | Visit | | PARISA Vernon [address] | | | | | | [place], | | | | | | [place] [address] | | | | | | [phone] | | | | | | | [...]
--- OUTSIDE RECORDS SUMMARY | ~2019-12-06 | XMS | Encounter Summary ---
Demographics + + + | Address | [address] | | | [place] [address] | + + + | Home Phone [...] Providers + +------+ + | Care Senior Major Gifts Officer Name | Role | Phone | [...] [address] | | | | | [place], | [place], | | | | | [place] [address] | [place] [address] | | | | | [phone] | [phone] | | | | | | | [...] | | | | | | [place] [address] | | | | | | [phone] | | | | | | | | +--------+---------+ + + + | 01/01/ | Office | Cardiology | [place], | | | 2019 | Visit | | PARISA Vernon [address] | | | | | | [place], | | | | | | [place] [address] | | | | | | [phone] | | | | | | | | +--------+---------+ + + + documented as of this encounter Visit Diagnoses Not on filedocumented in this encounter"
--- OUTSIDE RECORDS SUMMARY | ~2019-12-06 | XMS | Encounter Summary ---
Demographics + + + | Address | [address] | | | [place] [address] | + + + | Home Phone [...] Team Providers + +------+ + | Care Enginehouse Brakeman Name | Role | Phone | + +------+ + | Kirk French MD | PCP | | + +------+ + Encounter Details +--------+ + + + + | Date | Type | Department | Care Team | Description | +--------+ + + + + | 01/07/ | Hospital | [facility] | Conversion | | | 2017 | Encounter | [facility] | Transaction, | | | | | ULTRASOUND [address] | Provider Unknown | | | | | [address] [facility] [address] | [phone] | | | | | [place] | | | | | | [address] | Kirk French | | | | | [phone] | MD Eva Guidry | | | | | | [address] [place], | | | | | | [place] [address] | | | | | | [phone] | | | | | | | [...] + + + +---------+ + + | [place]-3 Fatty | CAPS, one capsule by | [...] | | | | | [place] [address] | | | | | | [phone] | | | | | | | | +--------+---------+ + + + | 01/01/ | Office | Cardiology | [place], | | | 2020 | Visit | | PARISA Vernon [address] | | | | | | [place], | | | | | | [place] [address] | | | | | | [phone] | | | | | | | | +--------+---------+ + + + documented as of this encounter Visit Diagnoses Not on filedocumented in this encounter"
--- OUTSIDE RECORDS SUMMARY | ~2019-12-06 | XMS | Encounter Summary ---
Demographics + + + | Address | [address] [place] [address] [address] | | | [place] [address] | + + + | Home Phone | | + + + | Preferred Language | Unknown | + + + | Marital Status | | + + + | Buddhist Affiliation | Unknown | + + + [...] [place] | | | | | [address] | | + + + + + Care Team Providers + +------+ + | Care Incident Engineer Name | Role | Phone | [...] | | | | | diarrhea | [address] | | | | | | [address] | [address] | | | | | | l weight | [place], [place] | | | | | | loss | [address] | | | | | | Procedures | Phone: | | | | | | CONSULT TO | [phone] | | | | | | NON - [facility] | Fax: | | | | | | PROVIDER | [phone] | | | | | | CONSULT [...] | | 2019 | | Center at [facility] [address] | MD [address] | change location of | | | | [address] | [place], [place] | referral ) | | | | Mailcode: Center | [address] | | | | | for Health and | [phone] | | | | | [facility] [address] | | | | | | [place], [place] | | | | | | [address] | | | | | | [phone] | | | +--------+ + + + [...]
--- OUTSIDE RECORDS SUMMARY | ~2019-12-06 | XMS | Encounter Summary ---
Demographics + + + | Address | [address] | | | [place] [address] | + + + | Home Phone [...] Team Providers + +------+ + | Care Collar Setter Overlock Name | Role | Phone | + +------+ + | Michael Amanda DO | PCP | | + +------+ + Encounter Details +--------+ + + + + | Date | Type | Department | Care Team | Description | +--------+ + + + + | 05/11/ | Hospital | [facility] | Conversion | Lumbago; | | 2013 | Encounter | [facility]ICAL CENTER XRAY | Transaction, | Postlaminectomy | | | | [address] | Provider Unknown | syndrome, cervical | | | | [place], [place] | | region; Cervicalgia | | | | [address] | (Fax) | | | | | [phone] | | | +--------+ + + + [...] + + + +---------+ + + | [place]-3 Fatty | CAPS, one capsule by | [...] Notes Conversion Transaction, Provider Unknown - 05/11/2014 11:46 AM PDTFormatting of this note m ight be different from the original. Nurse Progress Note by Christine Mcgraw at 05/11/14 1146 Author: Christine Mcgraw Service: Radiology Author Type: Registered Nurse Filed: 05/11/14 1147 Date of Service: 05/11/141145 Status: Signed Stereo Compiler: Christine Mcgraw Report called to Brittany morejon pt will transfer to cdu 1116 post mylogram. Pt transferred to xray and is having procedure done now. Pt will transferred by xray to cdu. Pt stable ambula tory with all belongings when he left cath holding room., av docume nted in this encounter Plan of Treatment +--------+---------+ + + + | Date | Type | Specialty | Care Team | Description | +--------+---------+ + + + | 01/27/ | Office | Gastroenterology | Darin Gandhi | | | 2019 | Visit | | MD Jacek [address] | | | | | | [place] [address] | | | | | | [place] [address] | | | | | | [phone] | | | | | | | | +--------+---------+ + + + | 01/01/ | Office | Cardiology | iSlvia, | | | 2019 | Visit | | PARISA Vernon [address] | | | | | | [place], | | | | | | [place] [address] | | | | | | [phone] | | | | | | | | +--------+---------+ + + + documented as of this encounter Procedures + +--------+ + + + | Procedure Name | Priori | Date/Time | Associated Diagnosis | Comments | | | ty | | | | + +--------+ + + + | FL MYELOGRAM 2 [place] | Routin | 05/11/2014 | | Results for this | | MORE REGIONS | e | 12:44 PM | | procedure are in the | | | | PDT | | results section. | + +--------+ + + + documented in this encounter Results FL Myelogram 2 or More Regions (05/11/2014 12:44 PM PDT) + + | Specimen | + + | | + + + + + | Impressions | Performed At | + + + | 1. Technically successful lumbar puncture and cervicothoracic and | | | lumbar myelogram after intrathecal contrast injection. | | | | | + + + + + + | Narrative | Performed At | + + + | HISTORY: 54-year-old male with prior cervical and lumbar fusion, | | | with pain TECHNIQUE: Fluoroscopically guided lumbar puncture and | | | cervicothoracic and lumbar myelogram Prior study reviewed: None | | | applicable Procedure: After the risks and benefits of the | | | procedure were discussed with the patient and all questions were | | | answered, informed written consent is obtained and witnessed. Risks | | | were specifically to include bleeding, infection, failed procedure, | | | headache and seizure. Anticipated benefit was diagnostic. Although | | | uncommon, complications can occasionally be severe/significant. As | | | a separate procedure distinct from the imaging and intervention, a | | | targeted physical examination was performed as germane. Then, the | | | appropriate side of intervention was determined and separately | | | labeled, antecedent to imaging and intervention. As per protocol at | | | this institution. Prior imaging and clinical notes were also reviewed | | | as contributory and needed. Patient was shielded as much as | | | possible and placed in the fluoroscopy suite in the prone position | | | The L4-L5 level was prepped and draped in usual sterile manner. | | | Just above the scar, as per patient's request. Local anesthesia was | | | achieved with 3 cc 1% lidocaine and sodium bicarbonate. Using | | | fluoroscopic guidance a 20-gauge spinal needle was placed into the | | | canal and clear fluid was collected. With free flow of spinal | | | fluid, confirmation of the needle into orthogonal projections and | | | under fluoroscopic observation, a slow injection of Isovue 300m, | | | approved for intrathecal injection, was carefully infused. Total | | | volume of 10 cc only. Total fluoroscopy time -- 3 minute. No | | | evidence of adverse sequelae. Standard discharge instructions | | | rendered and my contact information given. Findings: Posterior | | | fusion at L5-S1, small S1 disc. The discogram from December 2004 is | | | used for orientation and to verify consistency levels. The lumbosacral | | | junction is transitional. The anterior fusion at C5-C7 is not | | | well evaluated here. Special flexion and extension views were not | | | performed as the associated CT is thought to be diagnostic and the | | | patient had associated significant headache. Followup: Patient | | | became asymptomatic during monitoring in the CDU. Headache did not | | | persist. | | + + + + + | Procedure Note | + + | Kevin Kalpesh Conversion - 07/07/2019 10:30 PM PDT HISTORY: 54-year-old male with prior | | cervical and lumbar fusion, with pain TECHNIQUE: Fluoroscopically guided lumbar puncture | | and cervicothoracic and lumbar myelogramPrior study reviewed: None applicable | | Procedure: After the risks and benefits of the procedure were discussed with the patient | | and all questions were answered, informed written consent is obtained and witnessed. | | Risks were specifically to include bleeding, infection, failed procedure, headache and | | seizure. Anticipated benefit was diagnostic. Although uncommon, complications can | | occasionally be severe/significant. As a separate procedure distinct from the imaging | | and intervention, a targeted physical examination was performed as germane. Then, the | | appropriate side of intervention was determined and separately labeled, antecedent to | | imaging and intervention. As per protocol at this institution. Prior imaging and | | clinical notes were also reviewed as contributory and needed. Patient was shielded as | | much as possible and placed in the fluoroscopy suite in the prone position The L4-L5 | | level was prepped and draped in usual sterile manner. Just above the scar, as per | | patient's request. Local anesthesia was achieved with 3 cc 1% lidocaine and sodium | | bicarbonate. Using fluoroscopic guidance a 20-gauge spinal needle was placed into the | | canal and clear fluid was collected. With free flow of spinal fluid, confirmation of the | | needle into orthogonal projections and under fluoroscopic observation, a slow injection | | of Isovue 300m, approved for intrathecal injection, was carefully infused. Total volume | | of 10 cc only. Total fluoroscopy time -- 3 minute.No evidence of adverse | | sequelae.Standard discharge instructions rendered and my contact information given. | | Findings: Posterior fusion at L5-S1, small S1 disc. The discogram from December 2004 is | | used for orientation and to verify consistency levels. The lumbosacral junction is | | transitional. The anterior fusion at C5-C7 is not well evaluated here. Special flexion | | and extension views were not performed as the associated CT is thought to be diagnostic | | and the patient had associated significant headache. Followup: Patient became | | asymptomatic during monitoring in the CDU. Headache did not persist. IMPRESSION: 1. | | Technically successful lumbar puncture and cervicothoracic and lumbar myelogram after | | intrathecal contrast injection. Electronically signed by Cirilo Martínez MD on | | 05/11/2014 5:32 PM | |Special flexion and extension views were not performed as the associated CT is thought to b e diagnostic and the patient had associated significant headache. | | | |Followup: Patient became asymptomatic during monitoring in the CDU. Headache did not persis t. | | | |IMPRESSION: | | | |1. Technically successful lumbar puncture and cervicothoracic and lumbar myelogram after in trathecal contrast injection. | | | | | + + documented in this encounter Visit Diagnoses + + | Diagnosis | + + | Lumbago | + + | Postlaminectomy syndrome, cervical region | + + | Cervicalgia | + + documented in this encounter"
--- OUTSIDE RECORDS SUMMARY | ~2019-12-06 | XMS | Encounter Summary ---
Demographics + + + | Address | [address] | | | [place] [address] | + + + | Home Phone [...] Team Providers + +------+ + | Care Cash Person Name | Role | Phone | [...] [address] | | | | | [place], | [place], | | | | | [place] [address] | [place] [address] | | | | | [phone] | [phone] | | | | | | | [...] | | | | | [place] [address] | | | | | | [phone] | | | | | | | | +--------+---------+ + + + | 01/01/ | Office | Cardiology | Silvia, | | | 2020 | Visit | | PARISA Vernon [address] | | | | | | [place], | | | | | | [place] [address] | | | | | | [phone] | | | | | | | | +--------+---------+ + + + documented as of this encounter Visit Diagnoses Not on filedocumented in this encounter"
--- OUTSIDE RECORDS SUMMARY | ~2019-12-06 | XMS | Encounter Summary ---
Demographics + + + | Address | [address] | | | [place] [address] | + + + | Home Phone [...] Team Providers + +------+ + | Care Acute Care Nurse Practitioner Name | Role | Phone | + [...] | | CARDIOLOGY [address] | Janeen RADIOLOGIC THERAPIST [address] | | | | | [place], | [place], | | | | | [place] [address] | [place] [address] | | | | | [phone] | [phone] | | | | | | | [...] | | | | | | [place] [address] | | | | | | [phone] | | | | | | | | +--------+---------+ + + + | 01/01/ | Office | Cardiology | Silvia, | | | 2019 | Visit | | PARISA Vernon [address] | | | | | | [place], | | | | | | [place] [address] | | | | | | [phone] | | | | | | | | +--------+---------+ + + + documented as of this encounter Visit Diagnoses Not on filedocumented in this encounter"
--- OUTSIDE RECORDS SUMMARY | ~2019-12-06 | XMS | Encounter Summary ---
Demographics + + + | Address | [address] | | | [place] [address] | + + + | Home Phone [...] Team Providers + +------+ + | Care Cork Wirer Name | Role | Phone | [...] [address] | | | | | [address] | [place] | | | | | [phone] | [address] | | | | | | [phone] | | | | | | | [...] | | | | | | [place] | | | | | | [place] [address] | | | | | | [phone] | | | | | | | | +--------+---------+ + + + | 01/01/ | Office | Cardiology | Silvia, | | | 2019 | Visit | | PARISA Vernon [address] | | | | | | [place], | | | | | | [place] [address] | | | | | | [phone] | | | | | | | [...]
--- OUTSIDE RECORDS SUMMARY | ~2019-12-06 | XMS | Encounter Summary ---
Demographics + + + | Address | [address] | | | [place] [address] | + + + | Home Phone [...] Team Providers + +------+ + | Care Hotel Recreational Facilities Manager Name | Role | Phone | + +------+ + | Kirk French MD | PCP | | + +------+ + Encounter Details +--------+---------+ + + + | Date | Type | Department | Care Team | Description | +--------+---------+ + + + | 01/05/ | Surgery | [facility] | Emmanuel Daniel MD | EGD | | 2019 | | MED CTR MP INTRA OP | [address], [place] | | | | | [address] | [address] [place], [place] | | | | | [place], [place] | [address] | | | | | [address] | | | | | | [phone] | | | +--------+---------+ + + + [...] for a few hours. Date Last Reviewed: 09/22/201619997448-9516 [employer]. [address] [place] [address]. All righ ts reserved. This information is [...] vomiting, or vomiting blood Date Last Reviewed: 05/22/201619994898-5171 [employer]. [address] [place] [address]. All righ ts reserved. This information is [...] You can't be awakened Date Last Reviewed: 09/08/201619993051-1010 [employer]. [address] [place] [address], [place] [address]. All righ ts reserved. This information is [...] | | | | | [place] [address] | | | | | | [phone] | | | | | | | | +--------+---------+ + + + | 01/01/ | Office | Cardiology | Silvia, | | | 2019 | Visit | | PARISA Vernon [address] | | | | | | [place], | | | | | | [place] [address] | | | | | | [phone] | | | | | | | | +--------+---------+ + + + documented as of this encounter Procedures + +--------+ + + + | Procedure Name | Priori | Date/Time | Associated Diagnosis | Comments | | | ty | | | | + +--------+ + + + | RESULT | Routin | 01/05/2019 | | Results for this | | (NON-ORD)ARSH | e | 8:54 AM | | [...] [address], | REFERENCE LAB | | [place] [id number] Entertainment Musician: Miguel Galarza MD, Phone: | [facility] | | [phone] | | + + + + + + + + | Performing | Address | City/State/Zipcode | Phone Number | | Organization | | | | + + + + + | REFERENCE LAB | [address] | [place] [address] | [phone] | | [facility] | [address] | | [...] - Arsh Hodges [address] [address], | REFERENCE LAB | | [place], [place] [id number] Entertainment Musician: Miguel Galarza MD, Phone: | [facility] | | [phone] | | + + + + + + + + | Performing | Address | City/State/Zipcode | Phone Number | | Organization | | | | + + + + + | REFERENCE LAB | [address] [facility] | [place] [address] | [phone] | | [facility] | Drive [...] , Qual | | | [facility] | [...] [address] | [place] | [phone] | | [facility] | | [address] | | | - LABORATORY | | [...] [address] | [place] | [phone] | | [facility] | | [address] | | | - LABORATORY | | [...] | | dium | | | [facility] | | | Antigen | | | MEDICAL | | | | | | CENTER - | | | | | | LABORATORY | | + + + + + + + + | Specimen | + + | Stool - Stool | | specimen (specimen) | + + + + + + + | Performing | Address | City[facility] | Phone Number | | Organization | | | | + + + + + | [facility] | [address] | [place] | [phone] | | [facility] | | [address] | | | - LABORATORY | | [...] + | [facility] | [address] | [place] | [phone] | | [facility] | | [address] | | | - LABORATORY | | [...] [address] | [place] | [phone] | | [facility] | | [address] | | | - LABORATORY | | [...] [address] | [place] | [phone] | | [facility] | | [address] | | | - LABORATORY | | | | + + + + + EGD (01/05/2019 8:36 AM PST) + + | Specimen | + + | | + + + + -+ | Narrative | Performed At | + + -+ | | [facility] | | GastroenterologyPatient Name: Moe Venegas Date: | PROVATION | | 01/05/2019 8:36 AMMRN: [id number] #: [id number] of : | | | 1960dmit Type: AmbulatoryAge: 58Room: [facility] 01Gender: MaleNote | | | Status: FinalizedAttending MD: Emmanuel Daniel , MDProcedure: | | | Upper GI endoscopyIndications: Diarrhea, Weight | | | lossProviders: Emmanuel Daniel MD, Heidi Gonzalezchfield, | | | RN, Kim Hicks, Radio Producer, | | | Jarett Barakat MD (Anesthesia [...] physician, the nurse, the anesthesiologist and the audiovisual technician | | | in the endoscopy [...] | | Imaging was performed using the [employer] | | | Endoscopy (FICE) [...] Scope In: 8:43:57 AMScope Out: 8:49:50 AM [facility]. | | | [facility], [address] [place] [address] | | | [phone] | | |Recommendation: | | | - [...] |Scope Out: 8:49:50 AM | | | [facility]. [facility], [address] [place] [address] | | | [address] | | + + -+ + +---------+ [...] | PROVATION | | 01/05/2019 8:36 AMMRN: [id number] #: [id number] of : | | | 8Admit Type: AmbulatoryAge: 58Room: [facility] 01Gender: MaleNote | | | Status: FinalizedAttending MD: Emmanuel Daniel [facility]: | | | ColonoscopyIndications: Clinically significant diarrhea of | | | unexplained origin, Weight lossProviders: | | | Emmanuel Daniel MD, Heidi An RN, Arrington | | | Fiorella Hicks, Radio Producer, Jarett Alejo | | | MD Roshni [...] | | | the anesthesiologist and the audiovisual technician in the endoscopy suite. | | [...] AMScope Out: | | | 9:06:28 AM [facility], [address] [facility], | | | [place] [address] | | | - Discharge patient to [...] |Scope Out: 9:06:28 AM | | | [facility], [address] [facility], [place], [place] | | | [address] | | + + -+ + +---------+ [...] | | | (atherosclerotic heart disease of [place] coronary artery without | | | angina [...] chronic or | | | microscopic colitis. BES:[facility]:C3NR GROSS DESCRIPTION: A. The | | | specimen, labeled "Laura, duodenal biopsy" is received in formalin | | | and consists of seven 0.1-0.5 cm lin fragments. Entirely submitted in | | | (A1). B. The specimen, labeled "Holland, right colon" is received | | | in formalin and consists of six 0.2-0.3 cm lin fragments. Entirely | | | submitted in (B1). C. The specimen, labeled "Holland, left colon" | | | is received in formalin and consists of six 0.2-0.3 cm lin-pink | | | fragments. Entirely submitted in (C1). am:AMB:portillo PERFORMING | | | LABORATORY: The technical component was performed by [employer] | | | [employer], [address] [place] [address] (Sales Assistant Displays: | | | Kailey [place] MD; CLIA# [id number]). Professional interpretation was | | | performed by [employer], [facility], [facility] | | | [place] [address] (Sales Assistant Displays: Ishaan | | Shanique Dao M.D.; CLIA#: [id number]). Diagnostician: Ishaan Fitzpatrick | | | Sylwia [...] ONCE PRN, Wheezing, | | | Starting [facility] 01/05/19 at 0924, | | | For [...] | mL/hr | | | CONTINUOUS, Starting [facility] 01/05/19 | | AM PST | | | | | at 0800, Pre-op | | | | | | + +---------+ +---+-------+---+ + +---+ | | | + +---+ | ondansetron (ZOFRAN) injection | | | 4 mg 4 mg, Oral, EVERY 4 HOURS | | | PRN, Nausea, Vomiting, Starting | | | [facility] 01/05/19 at 0924, | | | Recovery/Phase I | | + +---+ | | | + +---+ | ondansetron (ZOFRAN) injection | | | 4 mg 4 mg, Intravenous, ONCE | | | PRN, Nausea, Starting [facility] 01/05/19 | | | at 0924, For 1 dose, | | | Recovery/Phase I | | + +---+ | | | + +---+ documented in this encounter
--- OUTSIDE RECORDS SUMMARY | ~2019-12-06 | XMS | Encounter Summary ---
Demographics + + + | Address | [address] | | | [place] [address] | + + + | Home Phone [...] Team Providers + +------+ + | Care Residential Interior Designer Name | Role | Phone | + +------+ + | Kirk French MD | PCP | | + +------+ + Encounter Details +--------+ + + + + | Date | Type | Department | Care Team | Description | +--------+ + + + + | 01/05/ | Anesthesia | [facility] | Jarett Barakat | | | 2019 | Event | MED CTR MP INTRA OP | P, MD [address] | | | | | [address] | [place], [place] | | | | | [place], [place] | [address] | | | | | [address] | [phone] | | | | | [phone] | | | +--------+ + + + [...] explained and consent obtained. Patient transported to [facility], | | | 4 | | [...] | 01/05/19950 by | | eral | cqzr-ylg-zeylib catheter system; | Kasie Natarajan RN | [...] | | | | | [place] [address] | | | | | | [phone] | | | | | | | | +--------+---------+ + + + | 01/01/ | Office | Cardiology | [place], | | | 2019 | Visit | | PARISA Vernon [address] | | | | | | [place], | | | | | | [place] [address] | | | | | | [phone] | | | | | | | [...] | | | | | Vomiting, Starting [facility] 01/05/19 at | | AM PST | [...]
--- OUTSIDE RECORDS SUMMARY | ~2019-12-06 | XMS | Encounter Summary ---
Demographics + + + | Address | [address] | | | [place] [address] | + + + | Home Phone [...] Team Providers + +------+ + | Care Junk Dealer Name | Role | Phone | + [...] | RN | | | | | [place], | | | | | | [place] [address] | | | | | | [phone] | | | +--------+ + + + [...] | 2020 | Visit | | MD aJcek [address] | | | | | | [address] | | | | | | [place] [address] | | | | | | [phone] | | | | | | | | +--------+---------+ + + + | 01/01/ | Office | Cardiology | [place]via, | | | 2020 | Visit | | PARISA Vernon [address] | | | | | | [place], | | | | | | [place] [address] | | | | | | [phone] | | | | | | | | +--------+---------+ + + + documented as of this encounter Visit Diagnoses Not on filedocumented in this encounter"
--- OUTSIDE RECORDS SUMMARY | ~2019-12-06 | XMS | Encounter Summary ---
Demographics + + + | Address | [address] | | | [place] [address] | + + + | Home Phone [...] Team Providers + +------+ + | Care Internet Assessor Name | Role | Phone | + +------+ + PCP | Unavailable | + +------+ + Encounter Details +--------+ + + + + | Date | Type | Department | Care Team | Description | +--------+ + + + + | 06/23/ | [facility] | [facility] | Arthur Page MD | | | 2007 - | Encounter | MED CTR MED ONC | [address] [facility] | | | | | [address] [place] | [place] | | | 06/25/ | | [place] [address] | [address] | | | 2007 | | [phone] | | | +--------+ + + + [...] | | | | | [place] [address] | | | | | | [phone] | | | | | | | | +--------+---------+ + + + | 01/01/ | Office | Cardiology | [place], | | | 2020 | Visit | | PARISA Vernon [address] | | | | | | [place], | | | | | | [place] [address] | | | | | | [phone] | | | | | | | | +--------+---------+ + + + documented as of this encounter Visit Diagnoses Not on filedocumented in this encounter"
--- OUTSIDE RECORDS SUMMARY | ~2019-12-06 | XMS | Encounter Summary ---
Demographics + + + | Address | [address] | | | [place] [address] | + + + | Home Phone [...] Team Providers + +------+ + | Care Aeronautical Research Engineer Name | Role | Phone | [...] | | | | CENTER [address] | [address] [place] | | | | | [place], [place] | [place] [address] | | | | | [address] | [phone] | | | | | [phone] | | | +--------+ + + + [...] sent through Care Everywhere.Diarrhea, Unkno wn Cause (German)documented in this encounter Medications at Time of [...] + + + +---------+ + + | [place]-3 Fatty | CAPS, one capsule by | [...] | | | | | | | g[place] coronary | | | | | | | artery of [place] | | | | | | | [...] | | | | | | [place] [address] | | | | | | [phone] | | | | | | | | +--------+---------+ + + + | 01/01/ | Office | Cardiology | [place], | | | 2019 | Visit | | PARISA Vernon [address] | | | | | | [place], | | | | | | [place] [address] | | | | | | [phone] | | | | | | | [...] W?MRN: | | | | | | [id number] | | | [id number] | | | riteri | | | [...] | | | St. | | | [place] | | | y | | | [...] | | | St. | | | [place] | | | y | | | [...] | | | St. | | | [place] | | | y H. | | [...] | | | St. | | | [place] | | | y H. | | [...] | | | M.D. | | | Flush Tester | | | al | | | [...] | | | ent/60 | | | [id number] | | | -[phone] | | | [...] | | HISTORY: ABDOMINAL PAIN COMPARISON: CT May 11 and more | | | remote [...] | | Lavender | | | [facility] | | | [employer] | | [...] [address] | [place] | [phone] | | [facility] | | [address] | | | - LABORATORY | | [...] | [employer] Tube | | | [facility] | | | | | | MEDICAL [...] [address] | [place] | [phone] | | [facility] | | [address] | | | - LABORATORY | | [...] + | [facility] | [address] | [place] | [phone] | | [facility] | | [address] | | | - LABORATORY | | [...] ST. | [address] | [place], [place] | [phone] | | [facility] | | [address] | | | - LABORATORY | | [...] + | [facility] | [address] | [place] | [phone] | | [facility] | | [address] | | | - LABORATORY | | [...] 10 | 9 - 23 mg/dL | [facility] | | | | | | [facility] | | | | | | MEDICAL | | | | | | CENTER - | | | | | | LABORATORY | | + + + + + + | Creatinine | 0.96 | 0.70 - 1.30 | [facility] | | | | | mg/dL | [...] | [facility] | | | INDIAN | RATE,ESTIMATED | | MEDICAL | | | | mL/min/1.61g8Hltx than | | CENTER - | | [...] [address] | [place] | [phone] | | [facility] | | [address] | | | - LABORATORY | | [...] [facility] | | | | | | [facility] [...] | | | | | g/dL | [facility] | | | | | | MEDICAL | | | | | | CENTER - | | | | | | LABORATORY | | + +-------+ + + + | Hematocrit | 46.3 | 40.0 - 51.0 % | [facility] | | | | | | [facility] [address] | [place] | [phone] | | [facility] | | [address] | | | - LABORATORY | | [...] | Urine | | Yellow, Straw | [facility] [...] - 1.030 | [facility] | | | [place] | | | [facility] | | [...] [address] | [place] | [phone] | | [facility] | | [address] | | | - LABORATORY | | [...]
--- OUTSIDE RECORDS SUMMARY | ~2019-12-06 | XMS | Encounter Summary ---
Demographics + + + | Address | [address] [place] [address] [address] | | | [place] [address] | + + + | Home Phone | | + + + | Preferred Language | Unknown | + + + | Marital Status | | + + + | Yazidi Affiliation | Unknown | + + + [...] + + + | Rachel Valencia | ELEIZER | [place] | | | | | [address] | | + + + + + Care Team Providers + +------+ + | Care Siphon Operator Name | Role | Phone | [...] | | | | | [facility]ST[facility] | [place], [place] | for Health | | | | | C | [address] | and Healing, | | | | | ECHOCARDIOGR | Phone: | Building [address] | | | | | AM, ADULT | [phone] | [place], [place] | | | | | | Fax: | [address] | | | | | | [phone] | Phone: | | | | | | | [phone] | +--------+--------+ + + + + Reason [...] | | | | | | [place] [address] | | | | | | | Phone: | | | | | | | [phone] | | | | | | | Fax: | | | | | | | [phone] | | +--------+--------+ + + + + Encounter Details +--------+---------+ + + + | Date | Type | Department | Care Team | Description | +--------+---------+ + + + | 02/03/ | Office | Cardiology General | Arlette Drew, | Chest pain (Primary | | 2010 | Visit | at [facility] [address] | MD | Dx); Bradycardia; | | | | [address] Mailcode: | | Pacemaker | | | | [address] | | | | | | Health and Healing, | | | | | | Building | | | | | | Floor [place], [place] | | | | | | [address] | | | | | | [phone] | | | +--------+---------+ + + + [...] per Dr. Drew's note. Farooq Jamil DO Multiple Knife Edge Trimmer Operator Clinical conditioning coach/ Division of Cardiovascular Medicine Yajaira Borges, [place] - 02/09/2011 12:59 PM PDT PACEMAKER HISTORY Primary Care Provider: Darion Holden DO Receptionist Telephone Operator: Arlette Drew MD Moe Sanchez is a [...] pacemaker was put at the recommendation of Receptionist Telephone Operator Dr. Singletary from [place]. [place]. Pt. states lala bhatti was put>1 [...] form tilt table testing but NA at [facility] May need to involve endocrine and EP [...] Dr. Omero DREW MD CARDIOLOGY - GENERAL [address] Mailcode: Ch[facility], 9th Floor [facility] [address] documented in this en counter [...] ([facility]) | [facility] | | [facility] [address] [place] [facility] | REGIONAL | | [place] [address] | LABORATORY | + + + + + + + + | Performing | Address | City/State/Zipcode | Phone Number | | Organization | | | | + + + + + | [facility] | [address] | [place] [address] | | | LABORATORY | | | [...] RLB ([facility] [address] [facility]) | | | [place] [address] | | | [place] [address] | | + + + + + + + + | Performing | Address | City/State/Zipcode | Phone Number | | Organization | | | | + + + + + | [facility] | [address] | [place] [address] | | | LABORATORY | | | [...] | | | DEPARTMENT | | | [place] | | | OF | | | [...] | + + + + + | [facility] DEPARTMENT | [address] | [place] [address] | | | PATHOLOGY | [address] [...] DEPT OF | [address] | [place], [place] | | | CARDIOLOGY | [address] | [address] | | + + + + + [...] DEPT OF | [address] | [place], [place] | | | CARDIOLOGY | [address] | [address] | | + + + + + [...] + + + | Please click | [facility] DEPT OF | | on view image for the detailed interpretation from [employer] results. | CARDIOLOGY | + + + + + + + + | Performing | Address | City/State/Zipcode | Phone Number | | Organization | | | | + + + + + | [facility] DEPT OF | [address] | [place], [place] | | | CARDIOLOGY | [address] | [address] | | + + + + + documented in this encounter Visit Diagnoses + + | Diagnosis | + + | Chest pain - Primary Chest pain, unspecified | + + | Bradycardia Other specified cardiac dysrhythmias | + + | Pacemaker Cardiac pacemaker in situ | + + documented in this encounter
--- OUTSIDE RECORDS SUMMARY | ~2019-12-06 | XMS | Encounter Summary ---
Demographics + + + | Address | [address] | | | [place] [address] | + + + | Home Phone | | + + + | Preferred Language | Unknown | + + + | Marital Status | | + + + | Taoist Affiliation | 1013 | + + + | Race | Unknown | + + + | Ethnic Group | Unknown | + + + Author + + + | Author | [facility] | | | and [place] | + + + | Organization | [facility] | | [...] Providers + +------+ + | Care Floor Care Specialist Name | Role | Phone | + +------+ + | Kirk French MD | PCP | | + +------+ + Encounter Details +--------+ + + + + | Date | Type | Department | Care Team | Description | +--------+ + + + + | 08/29/ | Hospital | [facility] | [place] | DVT (deep venous | | 2015 | Encounter | MED CTR ULTRASOUND | [place] [address] | thrombosis), | | | | [address] [place] | [place], | bilateral (HCC) | | | | [place], [place] | [place] [address] | | | | | [address] | [phone] | | | | | [phone] | | | +--------+ + + + [...] + + + +---------+ + + | [place]-3 Fatty | CAPS, one capsule by [...] | | | | | | | #[id number], exp 07/2016 | | | | | [...] | | | | | | [place] [address] | | | | | | [phone] | | | | | | | | +--------+---------+ + + + | 01/01/ | Office | Cardiology | Silvia, | | | 2019 | Visit | | PARISA [place] [address] | | | | | | [place], | | | | | | [place] [address] | | | | | | [phone] | | | | | | | [...] the groin through the popliteal fossa | [facility] | | in both lower extremities.. Grayscale [...] conveyed to the ordering provider, by the electrician helper, | | | immediately following the exam. [...] to the ordering provider, by the | |electrician helper, immediately following the exam. | | | [...] [address] | [place] | [phone] | | [facility] | | [address] | | | - IMAGING | | | | + + + + + documented in this encounter Visit Diagnoses + + | Diagnosis | + + | DVT (deep venous thrombosis), bilateral | + + documented in this encounter"
--- OUTSIDE RECORDS SUMMARY | ~2019-12-06 | XMS | Encounter Summary ---
Demographics + + + | Address | [address] | | | [place] [address] | + + + | Home Phone [...] Team Providers + +------+ + | Care Grooving Machine Operator Name | Role | Phone [...] | 01/04/ | Telephone | [facility] | Emmanuel Daniel MD | Other | | 2019 | | GASTROENTEROLOGY | [address] [place] | | | | | [address] [place] | [address] [place], [place] | | | | | [address] [place], [place] | [address] | | | | | [address] | | | | | | [phone] | | | +--------+ + + + [...] | | | | | [place] [address] | | | | | | [phone] | | | | | | | | +--------+---------+ + + + | 01/01/ | Office | Cardiology | Silvia, | | | 2019 | Visit | | PARISA [place] [address] | | | | | | [place] | | | | | | [place] [address] | | | | | | [phone] | | | | | | | | +--------+---------+ + + + documented as of this encounter Visit Diagnoses Not on filedocumented in this encounter"
--- OUTSIDE RECORDS SUMMARY | ~2019-12-06 | XMS | Encounter Summary ---
Demographics + + + | Address | [address] | | | [place] [address] | + + + | Home Phone [...] Team Providers + +------+ + | Care Skelp Processor Name | Role | Phone | + +------+ + PCP | Unavailable | + +------+ + Encounter Details +--------+ + + + + | Date | Type | Department | Care Team | Description | +--------+ + + + + | 01/15/ | [facility] | [facility] | Emmanuel Daniel MD | | | 1995 | Encounter | MED CTR GENERIC OP | [address] | | | | | CONV DEPT [address] | [address] | | | | | [place], | [address] | | | | | [place] [address] | | | | | | [phone] | | | +--------+ + + + [...] | | | | | | [place] [address] | | | | | | [phone] | | | | | | | | +--------+---------+ + + + | 01/01/ | Office | Cardiology | Silvia, | | | 2020 | Visit | | PARISA Vernon [address] | | | | | | [place], | | | | | | [place] [address] | | | | | | [phone] | | | | | | | | +--------+---------+ + + + documented as of this encounter Visit Diagnoses Not on filedocumented in this encounter"
--- OUTSIDE RECORDS SUMMARY | ~2019-12-06 | XMS | Encounter Summary ---
Demographics + + + | Address | [address] | | | [place] [address] | + + + | Home Phone [...] Team Providers + +------+ + | Care Aquatic Performer Name | Role | Phone | + [...] + | 06/02/ | Telephone | [facility] | Daljit Singletary, | Other (symptoms) | | 2019 | | CARDIOLOGY [address] | MD [address] [place] | | | | | [place], | [place], | | | | | [place] [address] | [place] [address] | | | | | [phone] | [phone] | | | | | | | [...] | | | | | [place] [address] | | | | | | [phone] | | | | | | | | +--------+---------+ + + + | 01/01/ | Office | Cardiology | Silvia, | | | 2019 | Visit | | PARISA Vernon [address] | | | | | | [place] | | | | | | [place] [address] | | | | | | [phone] | | | | | | | | +--------+---------+ + + + documented as of this encounter Visit Diagnoses Not on filedocumented in this encounter"
--- OUTSIDE RECORDS SUMMARY | ~2019-12-06 | XMS | Encounter Summary ---
Demographics + + + | Address | [address] | | | [place] [address] | + + + | Home Phone [...] Providers + +------+ + | Care Double End Sewer Name | Role | Phone | + [...] | unspecified | MD Jacek | [address] | | | | | type | [address] | [place], | | | | | Unintentiona | [place] | [place] [address] | | | | | l weight | [place], [place] | Phone: | | | | | loss | [address] | [phone] | | | | | Procedures | Phone: | Fax: | | | | | [place] [facility] | [phone] | [phone] | | | | | INTRALUMINAL | Fax: | | | | | | | [phone] | | | | | | ESOPHAGUS-IL [...] (Primary Dx); | | | | [address] [place], [place] | [place] [address] | Unintentional weight | | | | [address] | [phone] | loss | | | | [phone] | | | +--------+ + + + [...] Lisa Collins RN - 11/10/2019 8:39 AM PSTDrJuan Diego Gandhi reviewed referral and okay for pill cam; created referral; once approved will contact patient to schedule. Electronically s igned by Lisa Pisano RN at 11/10/2019 10:28 AM PSTdocumented in this encounter Plan of Treatment +--------+---------+ + + + | Date | Type | Specialty | Care Team | Description | +--------+---------+ + + + | 12/18/ | Office | Gastroenterology | Darin Gandhi | | 2019 | Visit | | MD Jacek [address] | | | | | | [place] [address] | | | | | | [place] [address] | | | | | | [phone] | | | | | | | | +--------+---------+ + + + | 01/01/ | Office | Cardiology | Silvia, | | | 2019 | Visit | | PARISA [place] [address] | | | | | | [place] | | | | | | [place] [address] | | | | | | [phone] | | | | | | | [...]
--- OUTSIDE RECORDS SUMMARY | ~2019-12-06 | XMS | Encounter Summary ---
Demographics + + + | Address | [address] | | | [place] [address] | + + + | Home Phone [...] Team Providers + +------+ + | Care Ferris Wheel Attendant Name | Role | Phone | [...] Refill | | 2013 | | [facility] | DO [address] | | | | | [address] | [place] | | | | | [place] | [address] | | | | | [address] | | | | | | [phone] | | | +--------+--------+ + + + [...] | | | | | [place] [address] | | | | | | [phone] | | | | | | | | +--------+---------+ + + + | 01/01/ | Office | Cardiology | Silvia, | | | 2019 | Visit | | PARISA [place] [address] | | | | | | [place], | | | | | | [place] [address] | | | | | | [phone] | | | | | | | | +--------+---------+ + + + documented as of this encounter Visit Diagnoses Not on filedocumented in this encounter"
--- OUTSIDE RECORDS SUMMARY | ~2019-12-06 | XMS | Encounter Summary ---
Demographics + + + | Address | [address] | | | [place] [address] | + + + | Home Phone [...] Team Providers + +------+ + | Care Patent Leather Sorter Name | Role | Phone | [...] [address] | | | | | | [place], [place] | (Fax) | | | | | [address] | | | | | | [phone] | | | +--------+ + + + [...] | | | | | [place] [address] | | | | | | [phone] | | | | | | | | +--------+---------+ + + + | 01/01/ | Office | Cardiology | Silvia, | | | 2020 | Visit | | PARISA Vernon [address] | | | | | | [place], | | | | | | [place] [address] | | | | | | [phone] | | | | | | | | +--------+---------+ + + + documented as of this encounter Visit Diagnoses Not on filedocumented in this encounter"
--- OUTSIDE RECORDS SUMMARY | ~2019-12-06 | XMS | Encounter Summary ---
Demographics + + + | Address | [address] | | | [place] [address] | + + + | Home Phone [...] Providers + +------+ + | Care Special Effects Makeup Artist Name | Role | Phone | + +------+ + PCP | Unavailable | + +------+ + Encounter Details +--------+ + + + + | Date | Type | Department | Care Team | Description | +--------+ + + + + | 07/04/ | Hospital | [facility] | Jacek Ortiz | | | 2009 | Encounter | HOSPITAL EMERGENCY | MD [address] | | | | | C[address] | [address] | | | | | [address] [place] | [place] [address] | | | | | [address] | [phone] | | | | | [phone] | | | +--------+ + + + [...] | | | | | [place] [address] | | | | | | [phone] | | | | | | | | +--------+---------+ + + + | 01/01/ | Office | Cardiology | Silvia, | | | 2020 | Visit | | PARISA Vernon [address] | | | | | | [place], | | | | | | [place] [address] | | | | | | [phone] | | | | | | | | +--------+---------+ + + + documented as of this encounter Visit Diagnoses Not on filedocumented in this encounter"
--- OUTSIDE RECORDS SUMMARY | ~2019-12-06 | XMS | Encounter Summary ---
Demographics + + + | Address | [address] | | | [place] [address] | + + + | Home Phone [...] Team Providers + +------+ + | Care Claim Benefit Specialist Name | Role | Phone | [...] Provider Unknown | | | | | [place], [place] | [phone] | | | | | [address] | | | | | | [phone] | | | +--------+ + + + [...] + + + +---------+ + + | Garrett-3 Fatty | CAPS, one capsule by | [...] | | | | | | | #[id number], exp 07/2016 | | | | | [...] | | | | | [place] [address] | | | | | | [phone] | | | | | | | | +--------+---------+ + + + | 01/01/ | Office | Cardiology | Silvia, | | | 2019 | Visit | | PARISA Vernon [address] | | | | | | [place] | | | | | | [place] [address] | | | | | | [phone] | | | | | | | [...]
--- OUTSIDE RECORDS SUMMARY | ~2019-12-06 | XMS | Encounter Summary ---
Demographics + + + | Address | [address] | | | [place] [address] | + + + | Home Phone [...] Team Providers + +------+ + | Care Forensic Ballistics Expert Name | Role | Phone | [...] [place], | | | | | | [place] [address] | | | | | | [phone] | | | +--------+ + + + [...] | | | | | [place] [address] | | | | | | [phone] | | | | | | | | +--------+---------+ + + + | 01/01/ | Office | Cardiology | Silvia, | | | 2020 | Visit | | PARISA [place] [address] | | | | | | [place], | | | | | | [place] [address] | | | | | | [phone] | | | | | | | | +--------+---------+ + + + documented as of this encounter Visit Diagnoses Not on filedocumented in this encounter"
--- OUTSIDE RECORDS SUMMARY | ~2019-12-06 | XMS | Encounter Summary ---
Demographics + + + | Address | [address] | | | [place] [address] | + + + | Home Phone [...] Providers + +------+ + | Care Emergency Medicine Medical Director Name | Role | Phone | [...] | initial encounter; | | | | [place], [place] | | Elevated blood | | | | [address] | | pressure reading; | | | | [phone] | | Numbness and | | | [...] + + + +---------+ + + | [place]-3 Fatty | CAPS, one capsule by | [...] | | | | | | [place] [address] | | | | | | [phone] | | | | | | | | +--------+---------+ + + + | 01/01/ | Office | Cardiology | Silvia, | | | 2019 | Visit | | PARISA [place] [address] | | | | | | [place], | | | | | | [place] [address] | | | | | | [phone] | | | | | | | [...]
--- OUTSIDE RECORDS SUMMARY | ~2019-12-06 | XMS | Encounter Summary ---
Demographics + + + | Address | [address] | | | [place] [address] | + + + | Home Phone [...] Providers + +------+ + | Care Head Worker Name | Role | Phone | [...] | RN | | | | | [place], | | | | | | [place] [address] | | | | | | [phone] | | | +--------+ + + + [...] | | | | | | [place] [address] | | | | | | [phone] | | | | | | | | +--------+---------+ + + + | 01/01/ | Office | Cardiology | Silvia, | | | 2020 | Visit | | PARISA Vernon [address] | | | | | | [place], | | | | | | [place] [address] | | | | | | [phone] | | | | | | | | +--------+---------+ + + + documented as of this encounter Visit Diagnoses Not on filedocumented in this encounter"
--- OUTSIDE RECORDS SUMMARY | ~2019-12-06 | XMS | Encounter Summary ---
Demographics + + + | Address | [address] | | | [place] [address] | + + + | Home Phone [...] Providers + +------+ + | Care Tableau Report Developer Name | Role | Phone | + +------+ + PCP | Unavailable | + +------+ + Encounter Details +--------+ + + + + | Date | Type | Department | Care Team | Description | +--------+ + + + + | [facility] | Jonathan, | | | 2009 | Encounter | MED CTR EMERGENCY | Martell Cr MD [address] | | | | | CENTER [address] | [place] | | | | | [place] | [place] [address] | | | | | [address] | [phone] | | | | | [phone] | | | +--------+ + + + [...] | | | | | | [place], [place] [address] | | | | | | [phone] | | | | | | | | +--------+---------+ + + + | 01/01/ | Office | Cardiology | Silvia, | | | 2020 | Visit | | PARISA Vernon [address] | | | | | | [place], | | | | | | [place] [address] | | | | | | [phone] | | | | | | | | +--------+---------+ + + + documented as of this encounter Visit Diagnoses Not on filedocumented in this encounter"
--- OUTSIDE RECORDS SUMMARY | ~2019-12-06 | XMS | Encounter Summary ---
Demographics + + + | Address | [address] [place] [address] [address] | | | [place] [address] | + + + | Home Phone [...] [place] | | | | | [address] | | + + + + + Care Team Providers + +------+ + | Care Fire Fighter Name | Role | Phone | + [...] | | | | ILA Crane | [place], [place] | | | | | Mailcode: [place] | [address] | | | | | for Health and | [phone] | | | | | [facility] [address] | | | | | | [place], [place] | | | | | | [address] | | | | | | [phone] | | | +--------+ + + + [...]
--- OUTSIDE RECORDS SUMMARY | ~2019-12-06 | XMS | Encounter Summary ---
Demographics + + + | Address | [address] | | | [place] [address] | + + + | Home Phone [...] Team Providers + +------+ + | Care Reservations And Ticketing Agent Name | Role | Phone | [...] | SLEEP DISORDER [address] | [address] | Dx) | | | | [address] [place] | [place] | | | | | [place] [address] | [address] | | | | | [phone] | | | +--------+---------+ + + + [...] pillows obtained from: [facility] [place] pressure is: 13 cm CPAP download shows [...] to go to [facility] [place] to have them download his memory card. I will readjust his pressure, if necessary. I will call him with the results. He is to work toward wearing his CPAP 100% of the time he is asleep. I will follow up again in 1 month, sooner prn. Fifteen minutes were spent [id number], wi th the majority of time spent in counseling. Jay Cohn PA-C cc: Jacek Holm MD documented in this enco unter Plan of Treatment +--------+---------+ + + + | Date | Type | Specialty | Care Team | Description | +--------+---------+ + + + | 12/18/ | Office | Gastroenterology | Darin Gandhi | | | 2019 | Visit | | MD Jacek [address] | | | | | | [place] | | | | | | [place] [address] | | | | | | [phone] | | | | | | | | +--------+---------+ + + + | 01/01/ | Office | Cardiology | Silvia, | | | 2019 | Visit | | PARISA Vernon [address] | | | | | | [place], | | | | | | [place] [address] | | | | | | [phone] | | | | | | | | +--------+---------+ + + + documented as of this encounter Visit Diagnoses + + | Diagnosis | + + | DIDIER on CPAP - Primary Obstructive sleep apnea (adult) (pediatric) | + + documented in this encounter
--- OUTSIDE RECORDS SUMMARY | ~2019-12-06 | XMS | Encounter Summary ---
Demographics + + + | Address | [address] | | | [place] [address] | + + + | Home Phone [...] Providers + +------+ + | Care Computer Programmer Name | Role | Phone | [...] Provider Unknown | | | | | [place], [place] | [phone] | | | | | [address] | | | | | | [phone] | | | +--------+ + + + [...] + + + +---------+ + + | [place]-3 Fatty | CAPS, one capsule by | [...] | | | | | [place] [address] | | | | | | [phone] | | | | | | | | +--------+---------+ + + + | 01/01/ | Office | Cardiology | Silvia | | | 2019 | Visit | | PARISA Vernon [address] | | | | | | [place] | | | | | | [place] [address] | | | | | | [phone] | | | | | | | [...]
--- OUTSIDE RECORDS SUMMARY | ~2019-12-06 | XMS | Encounter Summary ---
Demographics + + + | Address | [address] | | | [place] [address] | + + + | Home Phone [...] Team Providers + +------+ + | Care Gasoline Attendant Name | Role | Phone | [...] [address] | | | | | [place], | [place], | | | | | [place] [address] | [place] [address] | | | | | [phone] | [phone] | | | | | | | [...] | | | | | [place] [address] | | | | | | [phone] | | | | | | | | +--------+---------+ + + + | 01/01/ | Office | Cardiology | Silvia, | | | 2019 | Visit | | PARISA Vernon [address] | | | | | | [place], | | | | | | [place] [address] | | | | | | [phone] | | | | | | | [...] [address] | [place] | [phone] | | [facility] | | [address] | | | - LABORATORY | | [...]
--- OUTSIDE RECORDS SUMMARY | ~2019-12-06 | XMS | Encounter Summary ---
Demographics + + + | Address | [address] | | | [place] [address] | + + + | Home Phone [...] Team Providers + +------+ + | Care Cruise Coordinator Name | Role | Phone | [...] | | | DDD | Scotty C, AGER OPERATOR | [facility] | | | | | (degenerativ | [address] | [facility] | | | | | e disc | [facility] | MEDICAL | | | | | disease), | [address] | CENTER [address] | | | | | lumbar | B | [place] | | | | | Chronic | [place], [place] | [place], | | | | | left-sided | [address] | [place] [address] | | | | | low back | Phone: | Phone: | | | | | pain with | [phone] | [phone] | | | | | left-sided | Fax: | Fax: | | | | | sciatica | [phone] | [phone] | | | | | History of [...] | | | DDD | Scotty C, AGER OPERATOR | [address] [place] | | | | | (degenerativ | [address] | [place], | | | | | e disc | [facility] | [place] [address] | | | | | disease), | [address] | Phone: | | | | | lumbar | B | [phone] | | | | | Chronic | [place], [place] | Fax: | | | | | left-sided | [address] | [phone] | | | | | low back | Phone: | | | | | | pain with | [phone] | | | | | | left-sided | Fax: | | | | | | sciatica | [phone] | | | | | | History [...] + + | 07/01/ | Hospital | [facility] | Scotty Galdamez, | DDD (degenerative | | 2018 | Encounter | MED [facility] [address] | AGER OPERATOR [address] [facility] | disc disease), | | | | [place], | [address] | lumbar; Chronic | | | | [place] [address] | [place] [address] | left-sided low back | | | | [phone] | [phone] | pain with left-sided | | | [...] + + + +---------+ + + | [place]-3 Fatty | CAPS, one capsule by | [...] | | | | | [place] [address] | | | | | | [phone] | | | | | | | | +--------+---------+ + + + | 01/01/ | Office | Cardiology | Silvia, | | | 2019 | Visit | | PARISA Vernon [address] | | | | | | [place], | | | | | | [place] [address] | | | | | | [phone] | | | | | | | [...]
--- OUTSIDE RECORDS SUMMARY | ~2019-12-06 | XMS | Encounter Summary ---
Demographics + + + | Address | [address] | | | [place] [address] | + + + | Home Phone [...] Team Providers + +------+ + | Care Datacap Developer Name | Role | Phone | [...] Provider Unknown | | | | | [place], [place] | [phone] | | | | | [address] | | | | | | [phone] | | | +--------+ + + + [...] + + + +---------+ + + | Novelty-3 Fatty | CAPS, one capsule by | [...] | | | | | [place] [address] | | | | | | [phone] | | | | | | | | +--------+---------+ + + + | 01/01/ | Office | Cardiology | Silvia | | | 2019 | Visit | | PARISA Vernon [address] | | | | | | [place] | | | | | | [place] [address] | | | | | | [phone] | | | | | | | [...]
--- OUTSIDE RECORDS SUMMARY | ~2019-12-06 | XMS | Encounter Summary ---
Demographics + + + | Address | [address] | | | [place] [address] | + + + | Home Phone [...] Team Providers + +------+ + | Care Natural Gas Trader Name | Role | Phone | + [...] Provider Unknown | | | | | [place], [place] | [phone] | | | | | [address] | | | | | | [phone] | | | +--------+ + + + [...] + + + +---------+ + + | [place]-3 Fatty | CAPS, one capsule by [...] | | | | | | [place] [address] | | | | | | [phone] | | | | | | | | +--------+---------+ + + + | 01/01/ | Office | Cardiology | Silvia, | | | 2019 | Visit | | PARISA Vernon [address] | | | | | | [place], | | | | | | [place] [address] | | | | | | [phone] | | | | | | | [...]
--- OUTSIDE RECORDS SUMMARY | ~2019-12-06 | XMS | Encounter Summary ---
Demographics + + + | Address | [address] | | | [place] [address] | + + + | Home Phone [...] Team Providers + +------+ + | Care Right Of Way Manager Name | Role | Phone | [...] + | 01/03/ | Office | [facility] | [place], | CAD (coronary artery | | 2012 | Visit | CARDIOLOGY [address] | Janeen, ELECTRONIC WARFARE OFFICER [address] | disease) (Primary | | | | [place], | [place], | Dx); Bradycardia; | | | | [place] [address] | [place] [address] | HTN (hypertension); | | | | [phone] | [phone] | Lightheadedness | | | | | [...] tablet Take 1,000 mg by mouth Daily. [place]-3 Fatty Acids (SALMON OIL-1000 PO) CAPS, one [...] himself t o the emergency department at [facility] in [place], [place]. EKG showed normal s inus rhythm [...] Refer patient to an electrophysiology specialist in [place] for further evaluation for P VC's ablation. I have given verbal instructions and written material for patient to read mo re about the procedure. 2. Check blood pressure and pulse twice daily for two weeks and return the log to our offic e. 3. Followup appointment after patient's appointment with commissioning specialist/ablation. IJaneen ARNP, saw this patient under the direct supervision of Daljit Singletary MD Portions of this report were transcribed using voice recognition software. Every effort wa s made to ensure accuracy; however, inadvertent computerized head of art errors may be pre sent. documented in this encounter Plan of Treatment +--------+---------+ + + + | Date | Type | Specialty | Care Team | Description | +--------+---------+ + + + | 12/18/ | Office | Gastroenterology | Darin Gandhi | | | 2019 | Visit | | MD Jacek [address] | | | | | | [place] [address] | | | | | | [place] [address] | | | | | | [phone] | | | | | | | | +--------+---------+ + + + | 01/01/ | Office | Cardiology | Silvia, | | | 2019 | Visit | | PARISA Vernon [address] | | | | | | [place] | | | | | | [place] [address] | | | | | | [phone] | | | | | | | | +--------+---------+ + + + documented as of this encounter Visit Diagnoses + + | Diagnosis | + + | CAD (coronary artery disease) - Primary Coronary atherosclerosis of unspecified type | | of vessel, coquille or graft | + + | Bradycardia Other specified cardiac dysrhythmias | + + | HTN (hypertension) Unspecified essential hypertension | + + | Lightheadedness Dizziness and giddiness | + + documented in this encounter
--- OUTSIDE RECORDS SUMMARY | ~2019-12-06 | XMS | Encounter Summary ---
Demographics + + + | Address | [address] | | | [place] [address] | + + + | Home Phone [...] Team Providers + +------+ + | Care Knifer Up Name | Role | Phone | + +------+ + PCP | Unavailable | + +------+ + Encounter Details +--------+ + + + + | Date | Type | Department | Care Team | Description | +--------+ + + + + | 04/22/ | Hospital | [facility] | | | | 2011 | Encounter | MED CTR XRAY [address] | | | | | | [place] | | | | | | [place] [address] | | | | | | [phone] | | | +--------+ + + + [...] + + + +---------+ + + | [place]-3 Fatty | CAPS, one capsule by | [...] | | | | | [place] [address] | | | | | | [phone] | | | | | | | | +--------+---------+ + + + | 01/01/ | Office | Cardiology | Silvia, | | | 2019 | Visit | | PARISA Vernon [address] | | | | | | [place] | | | | | | [place] [address] | | | | | | [phone] | | | | | | | [...] Performed At | + + + | [facility] Diagnostic Imaging Department | [facility] | | [address] [facility] | [facility] | | CT MYELOGRAM LUMBAR SPINE, | [...] Transcribed Date/Time: | | | 04/23/2012 11:06 Tankroom Worker: <Electronically Signed | | | by Jama Solis MD> 04/24/12 3456 | | + + + + + | Procedure Note | + + | Kevin, Rad Conversion - 12/29/2013 5:27 PM [facility] | | Diagnostic Imaging Department [address] [facility] [place] | | CT MYELOGRAM LUMBAR SPINE, 04/22/2012 [...] <Electronically Signed by Jama Solis MD> 04/24/12 7853 | | | |L3-4: Minimal broad-based disk [...] 10:54 | |Transcribed Date/Time: 04/23/2012 11:06 | |Tankroom Worker: | |<Electronically Signed by Jama Solis MD> 04/24/12 4707 | + + + +---------+ + + | Performing | Address | City/State/Zipcode | Phone Number | | Organization | | | | + +---------+ + + | [place] | | | | | [facility] | | | | + +---------+ + + CT Thoracic Spine w Contrast (04/22/2012 1:12 PM PDT) + + | Specimen | + + | | + + + + + | Narrative | Performed At | + + + | [facility] Diagnostic Imaging Department | [facility] | | [address] [facility] | [facility] | | THORACIC CT MYELOGRAM | DIAG [...] Transcribed Date/Time: 04/22/2012 17:32 | | | Tankroom Worker: <Electronically Signed by Jama Mason | | | MD Will> 04/23/12 1039 | | + + + + + | Procedure Note | + + | Kevin, Rad Conversion - 12/29/2013 5:27 PM [facility] | | Diagnostic Imaging Department [address] [place] [address] | | THORACIC CT MYELOGRAM CLINICAL HISTORY: [...] NORMAL RANGE FOR AGE. PLEASE SEE DETAILS ABOPedro E. | | | |Dictated Date/Time: 04/22/2012 16:56 | |Transcribed Date/Time: 04/22/2012 17:32 | |Tankroom Worker: | |<Electronically Signed by Jama Solis MD> 04/23/12 1039 | + + + +---------+ + + | Performing | Address | City/State/Zipcode | Phone Number | | Organization | | | | + +---------+ + + | [place] | | | | | [facility] | | | | + +---------+ + + CT Cervical Spine w Contrast (04/22/2012 1:12 PM PDT) + + | Specimen | + + | | + + + + + | Narrative | Performed At | + + + | [facility] Diagnostic Imaging Department | [place] | | [address], [place] | [place] | | CT MYELOGRAM CERVICAL SPINE | [...] Similar study from | | | 09/02/2009, [facility]. FINDINGS: Firm bony ankylosis | | | [...] Transcribed Date/Time: | | | 04/22/2012 17:25 Tankroom Worker: <Electronically Signed | | | by Jama Solis MD> 04/23/12 1039 | | + + + + + | Procedure Note | + + | Kevin, Rad Conversion - 12/29/2013 5:27 PM [facility] | | Diagnostic Imaging Department | [...] | | COMPARISON: Similar study from 09/02/2009, [facility]. | | | | FINDINGS: Firm bony [...] | Transcribed Date/Time: 04/22/2012 17:25 | | Tankroom Worker: | | <Electronically Signed by Jama Solis [...] Performed At | + + + | [facility] Diagnostic Imaging Department | [facility] | | [address] [facility] | [facility] | | LUMBAR MYELOGRAM INJECTION FOR CT [...] Transcribed Date/Time: 04/22/2012 16:36 | | | Tankroom Worker: <Electronically Signed by Jama Mason | | | MD Will> 04/23/12 1039 | | + + + + + | Procedure Note | + + | Kalpesh Brown Conversion - 12/29/2013 5:27 PM [facility] | | Diagnostic Imaging Department [address] [place] [address] | | LUMBAR MYELOGRAM INJECTION FOR CT [...] 15:51 | |Transcribed Date/Time: 04/22/2012 16:36 | |Tankroom Worker: | |<Electronically Signed by Jama Solis MD> [...]
--- OUTSIDE RECORDS SUMMARY | ~2019-12-06 | XMS | Encounter Summary ---
Demographics + + + | Address | [address] | | | [place] [address] | + + + | Home Phone [...] Team Providers + +------+ + | Care Route Driver Salesperson Name | Role | Phone | + [...] | | | | aortic | Janeen, SQL DATABASE DEVELOPER | [place], | | | | | aneurysm | [address] | [place] [address] | | | | | (HCC) | [place] | Phone: | | | | | Abdominal | [place], | [phone] | | | | | aortic | [place] | Fax: | | | | | aneurysm | [address] | [phone] | | | | | (AAA) | Phone: | | | | | | without | [phone] | | | | | | rupture | Fax: | | | | | | (HCC) | [phone] | | | | | | Procedures [...] | | unspecified | MD Martell | [address] [place] [address] | | | | | type ER | [address] | [place] | | | | | FUP | [place] | [place], | | | | | Procedures | [place], [place] | [place] [address] | | | | | FUP - SUW & | [address] | Phone: | | | | | MISHA PT, LAST | Phone: | [phone] | | | | | SEEN | [phone] | Fax: | | | | | 08-24-18 | Fax: | [phone] | | | | | | [phone] | | +--------+ + + + + + Encounter Details +--------+---------+ + + + | Date | Type | Department | Care Team | Description | +--------+---------+ + + + | 01/11/ | Office | [facility] | [place], | Coronary artery | | 2019 | Visit | CARDIOLOGY [address] | PARISA [place] [address] | disease involving | | | | [place], | [place], | [place]low[place] de[place]ni' coronary | | | | [place] [address] | [place] [address] | artery of [place] dee-ni' | | | | [phone] | [phone] | heart without angina | | | [...] encounter Patient Instructions Patient Instructions Christine Rodriguez, Calenderer - 01/11/2019 12:45 PM PST 1. You [...] Check-in time: 1. Check in at the [facility]. 2. Do not [...] procedure. 6. Make sure you have a commercial front load driver to take you home. Your commercial front load driver will also need to sign you [...] hospital line at and ask for nursing supervisor shuttle veneering t o let them know you are cancelling . Blood test: Non-fasting Date Due: same day as CTA Where to go for labs: [facility]- [address] [facility] CTA of Chest and Abdomen: Date: Check-In [...] of non-critical coronary artery d isease involving tolowa dee-ni' coronary artery of [place] de[place]-ni' heart without angina pectoris, essential h ypertension, symptomatic bradycardia status post Medtronic dual-chamber permanent pacemaker implantation 06/14/09, frequent premature ventricular contractions status post ablation sprin g 2012, and bipolar disorder with anxiety. He is being seen today for follow up symptomatic PVC's status post ablation. He was last seen 08/24/2018 at which time, his current medical regimen was effective; jsose gibbons present plan and medications.The plan will [...] Preventative health care Coronary artery disease involving tolowa dee-ni' coronary artery of [place] de[place]-ni' heart without angina pectoris Cannabis abuse, daily [...] 3RD DOSE, CALL 911 100 tablet 3 [place]-3 Fatty Acids (SALMON OIL-1000 PO) CAPS, one capsule by mouth daily twice daily ondansetron (ZOFRAN ODT) 4 mg disintegrating tablet Take 4 mg by mouth. ONE TOUCH DELICA LANCETS [facility] [...] was found Confirmed by ANGELA MARADIAGA MD ([id number]) on 01/03/2019 8:10:39 PM LAB RESULTS reviewed during visit today primarily from [facility]: LIPID Lab Results Component Value Date [...] the HPI. RESULTS- I reviewed reports from [facility]: Xr Chest Ap Portable Result Date: [...] ASSESSMENT: 1. Non-critical Coronary artery disease involving tolowa dee-ni' coronary artery of tolowa dee-ni' heart wi out angina pectoris: A. Normal [...] Symptoms with moderate exertion of t he [place] Heart Ass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 Heart failure stage [...] [facility]. Patient had spontaneous PVC's from [...] go back in 3 days t o [place] for an attempt of ablation under general [...] he has any further problems Christine Clemente Calenderer am acting as a scribe on behalf of, and in the pres ence of PARISA Lomas. - Reji Newman 01/11/2019 13:46 IJaneen ARNP, personally performed the services described in this documentati on, as scribed in my presence and it is both accurate and complete. -PARISA Lomas 01/11/2019 Portions of this chart may have been created with Casetext voice recognition software. Occasi onal wrong-word or [...] | | | | | | [place] [address] | | | | | | [phone] | | | | | | | | +--------+---------+ + + + | 01/01/ | Office | Cardiology | Silvia, | | | 2019 | Visit | | PARISA Vernon [address] | | | | | | [place], | | | | | | [place] [address] | | | | | | [phone] | | | | | | | | +--------+---------+ + + + + +---------+--------+ + + [...] + + | Coronary artery disease involving tolowa dee-ni' coronary artery of tolowa dee-ni' heart without | | angina pectoris - [...]
--- OUTSIDE RECORDS SUMMARY | ~2019-12-06 | XMS | Encounter Summary ---
Demographics + + + | Address | [address] | | | [place] [address] | + + + | Home Phone [...] Team Providers + +------+ + | Care Immunology Teacher Name | Role | Phone | [...] + + | 05/15/ | Office | [facility] | Matthew Uriarte | Kidney stones | | 2019 | Visit | [address] | MD Tawanna [address] | (Primary Dx) | | | | [place] | [address] [place] | | | | | [address] | [address] | | | | | [phone] | | | +--------+---------+ + + + [...] Medtronic Peptic ulcer disease Premature ventricular contraction [facility] care 06/26/2013 LAST PSA:12/16/2010 RESULT:0.14 LAST [...] CV LHC; Surgeon: Daljit Singletary MD; Location: [facility] CV LAB CARDIAC CATHERIZATION N/A 01/25/2019 Procedure: CV Cor Angio; Surgeon: Daljit Singletary MD; Location: [facility] CV LAB COLONOSCOPY N/A 12/24/2017 Procedure: COLONOSCOPY; Surgeon: Emmanuel Daniel MD; Location: [facility] MEDICAL PROCEDURE UNIT COLONOSCOPY N/A 01/05/2019 Procedure: COLONOSCOPY; Surgeon: Emmanuel Daniel MD; Location: [facility] MEDICAL PROCEDURE UNIT EGD 12/24/2017 HARDWARE [...] Procedure: EGD; Surgeon: Emmanuel Daniel MD; Location: [facility] MEDICAL PROCEDURE UNIT UPPER GASTROINTESTINAL ENDOSCOPY N/A 01/05/2019 Procedure: EGD; Surgeon: Emmanuel Daniel MD; Location: [facility] MEDICAL PROCEDURE UNIT URETEROSCOPY Left 04/13/2019 Procedure: Cystoscopy, Left ureteroscopy with laser lithotripsy, Left ureteral stent place ment; Surgeon: Matthew Uriarte MD; Location: [facility] MAIN OR VASECTOMY Family History: Family [...] EVERY DAY, Disp: 90 tablet, Rfl: 3 Misc Natural Products (OSTEO BI-FLEX/5-LOXIN ADVANCED PO), Take [...] 911, Disp: 100 ta blet, Rfl: 3 [place]-3 Fatty Acids (SALMON OIL-1000 PO), CAPS, one capsule by mouth daily twice daily , Disp: , Rfl: ondansetron (ZOFRAN ODT) 4 mg disintegrating tablet, Take 4 mg by mouth every 8 hours as needed for Nausea., Disp: , Rfl: ONE TOUCH DELICA LANCETS MIS, Check glucose as needed for hypoglycemia, Disp: [...] pH, Urine 8.0 5.0 - 8.0 Specific Ethel 1.008 1.001 - 1.030 Protein, Urine Negative [...] have not thoroughly proofread this note, and security delivery specialist errors are very likely to occur. CC: [...] | | | | | | [place] [address] | | | | | | [phone] | | | | | | | | +--------+---------+ + + + | 01/01/ | Office | Cardiology | Silvia, | | | 2019 | Visit | | PARISA Vernon [address] | | | | | | [place], | | | | | | [place] [address] | | | | | | [phone] | | | | | | | [...]
--- OUTSIDE RECORDS SUMMARY | ~2019-12-06 | XMS | Encounter Summary ---
Demographics + + + | Address | [address] | | | [place] [address] | + + + | Home Phone [...] Providers + +------+ + | Care Paper Sheeter Name | Role | Phone | + [...] + + | 02/21/ | Office | [facility] | [place], | Coronary artery | | 2019 | Visit | CARDIOLOGY [address] | PARISA [place] [address] | disease involving | | | | [place], | [place], | osage coronary | | | | [place] [address] | [place] [address] | artery of osage | | | | [phone] | [phone] | heart without angina | | | [...] of non-critical coronary artery d isease involving osage coronary artery of osage heart without angina pectoris, essential h ypertension, [...] stay active. 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 He has not had any [...] Preventative health care Coronary artery disease involving osage coronary artery of osage heart without angina pectoris Cannabis abuse, daily [...] 3RD DOSE, CALL 911 100 tablet 3 [place]-3 Fatty Acids (SALMON OIL-1000 PO) CAPS, one [...] was found Confirmed by ANGELA MARADIAGA MD ([id number]) on 01/03/2019 8:10:39 PM LAB RESULTS reviewed during visit today primarily from [facility]: LIPID Lab Results Component Value Date [...] BNP 15 01/02/2019 I reviewed records from [facility] for angiogram results on 019 which is summarized in the HPI. RESULTS- I reviewed reports from [facility]: No results found. Left heart catheterization [...] ASSESSMENT: 1. Non-critical Coronary artery disease involving osage coronary artery of osage heart [facility] angina pectoris: A.Normal exercise sestamibi stress [...] Symptoms with moderate exertion of t he [place] Heart Ass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 Heart failure stage [...] performed by Dr Juan Diego Gambino at [facility] on 01/30/2013.Patient had spontaneous PVC's fro [...] of presyncope [facility] thought to have [facility]ovagal [facility]. B. Today, [...] this chart may have been created with Xradia voice recognition software. Occasi onal wrong-word or [...] | | | | | | [place] [address] | | | | | | [phone] | | | | | | | | +--------+---------+ + + + | 01/01/ | Office | Cardiology | Silvia, | | | 2019 | Visit | | PARISA Vernon [address] | | | | | | [place], | | | | | | [place] [address] | | | | | | [phone] | | | | | | | | +--------+---------+ + + + documented as of this encounter Visit Diagnoses + + | Diagnosis | + + | Coronary artery disease involving osage coronary artery of osage heart without | | angina pectoris - Primary | + + | Symptomatic PVCs Other premature beats | + + | Essential hypertension Unspecified essential hypertension | + + documented in this encounter
--- OUTSIDE RECORDS SUMMARY | ~2019-12-06 | XMS | Encounter Summary ---
Demographics + + + | Address | [address] | | | [place] [address] | + + + | Home Phone [...] Providers + +------+ + | Care Process Eng Name | Role | Phone | + +------+ + | Kirk French MD | PCP | | + +------+ + Encounter Details +--------+ + + + + | Date | Type | Department | Care Team | Description | +--------+ + + + + | 01/18/ | Hospital | [facility] | Conversion | Diagnosis unknown | | 2017 | Encounter | CONVERSION [address] | Transaction, | | | | | [address] | Provider Unknown | | | | | [place], [place] | [phone] | | | | | [address] | | | | | | [phone] | | | +--------+ + + + [...] + + + +---------+ + + | [place]-3 Fatty | CAPS, one capsule by [...] | | | | | [place] [address] | | | | | | [phone] | | | | | | | | +--------+---------+ + + + | 01/01/ | Office | Cardiology | Silvia, | | | 2019 | Visit | | PARISA Vernon [address] | | | | | | [place], | | | | | | [place] [address] | | | | | | [phone] | | | | | | | [...]
--- OUTSIDE RECORDS SUMMARY | ~2019-12-06 | XMS | Encounter Summary ---
Demographics + + + | Address | [address] | | | [place] [address] | + + + | Home Phone [...] Team Providers + +------+ + | Care Waterproofing Machine Operator Name | Role | Phone [...] Provider Unknown | | | | | [place], [place] | [phone] | | | | | [address] | | | | | | [phone] | | | +--------+ + + + [...] + + + +---------+ + + | [place]-3 Fatty | CAPS, one capsule by | [...] | | | | | [place] [address] | | | | | | [phone] | | | | | | | | +--------+---------+ + + + | 01/01/ | Office | Cardiology | [place]via | | | 2019 | Visit | | PARISA Vernon [address] | | | | | | [place] | | | | | | [place] [address] | | | | | | [phone] | | | | | | | [...]
--- OUTSIDE RECORDS SUMMARY | ~2019-12-06 | XMS | Encounter Summary ---
Demographics + + + | Address | [address] | | | [place] [address] | + + + | Home Phone [...] Providers + +------+ + | Care Assistant Sales Manager Name | Role | Phone | + +------+ + | Kirk French MD | PCP | | + +------+ + Encounter Details +--------+ + + + + | Date | Type | Department | Care Team | Description | +--------+ + + + + | 07/05/ | Hospital | [facility] | Conversion | Acute neck pain | | 2017 | Encounter | [facility] XRAY | Transaction, | | | | | [address] | Provider Unknown | | | | | [address] [place], [place] | [phone] | | | | | [address] | | | | | | [phone] | Apolonia Ruano | | | | | | MD Shelly [address] | | | | | | [place] | | | | | | [place], [place] | | | | | | [address] | | | | | | [phone] | | +--------+ + + + + [...] + + + +---------+ + + | [place]-3 Fatty | CAPS, one capsule by | [...] | | | | | [place] [address] | | | | | | [phone] | | | | | | | | +--------+---------+ + + + | 01/01/ | Office | Cardiology | Silvia, | | | 2019 | Visit | | PARISA Vernon [address] | | | | | | [place], | | | | | | [place] [address] | | | | | | [phone] | | | | | | | [...] Note | + -----+ | Kalpesh Brown Conversion - 07/06/2019 12:12 AM PDT PINA Jaimee GAYRENU CERVICAL SPINE LIMITED | | 2-3 VIEW07/05/2017 [...]
--- OUTSIDE RECORDS SUMMARY | ~2019-12-06 | XMS | Encounter Summary ---
Demographics + + + | Address | [address] | | | [place] [address] | + + + | Home Phone [...] Team Providers + +------+ + | Care Microsoft Windows Engineer Name | Role | Phone | [...] W | DISCLOSURE) | | | | [place], | [place], | | | | | [place] [address] | [place] [address] | | | | | [phone] | [phone] | | | | | | | [...] | | | | | [place] [address] | | | | | | [phone] | | | | | | | | +--------+---------+ + + + | 01/01/ | Office | Cardiology | [place]via, | | | 2019 | Visit | | PARISA Vernon [address] | | | | | | [place], | | | | | | [place] [address] | | | | | | [phone] | | | | | | | | +--------+---------+ + + + documented as of this encounter Visit Diagnoses Not on filedocumented in this encounter"
--- OUTSIDE RECORDS SUMMARY | ~2019-12-06 | XMS | Encounter Summary ---
Demographics + + + | Address | [address] | | | [place] [address] | + + + | Home Phone [...] Providers + +------+ + | Care Molder Helper Name | Role | Phone | [...] [place] | | | | | | [address] | [address] Phone: | | | | | | Phone: | [phone] | | | | | | [phone] | Fax: | | | | | | Fax: | [phone] | | | | | | [phone] | | +--------+ + + + + + Reason for Visit + + + | Reason | Comments | + + + | Medicare Wellness | | + + + Encounter Details +--------+---------+ + + + | Date | Type | Department | Care Team | Description | +--------+---------+ + + + | 07/25/ | Office | [facility] | Michael Amanda, | Preventative health | | 2014 | Visit | [facility] [place] | DO [address] | care (Primary Dx); | | | | [address] | [place] | Cannabis abuse, | | | | [place] | [address] | daily use; Urinary | | | | [address] | | frequency; | | | | [phone] | | Incontinence; | | | | [...] needed for Chest pain. 25 tablet 12 [place]-3 Fatty Acids (SALMON OIL-1000 PO) CAPS, one [...] as Nurse Practitioner (Cardiology) FENG Chou (Physician Manager Merchandising) Current Medicare Suppliers: [facility] - [place], [place] - [address] [place] [address] [facility] - [place], [place] - [address] [place] [address] HEALTH RISK ASSESSMENT: : The patient or [...] following health maintenance items are reviewed in [facility] and correct as of today: Health Maintenance [...] Advanced Care Planning was discussed as no ekvin in the usual sections in [employer]. documented in this en counter Plan of [...] | | | | | [place] [address] | | | | | | [phone] | | | | | | | | +--------+---------+ + + + | 01/01/ | Office | Cardiology | Silvia, | | | 2020 | Visit | | PARISA Vernon [address] | | | | | | [place], | | | | | | [place] [address] | | | | | | [phone] | | | | | | | [...] Primary Routine general medical examination at a [facility] | | care facility | + + [...]
--- OUTSIDE RECORDS SUMMARY | ~2019-12-06 | XMS | Encounter Summary ---
Demographics + + + | Address | [address] | | | [place] [address] | + + + | Home Phone [...] Providers + +------+ + | Care Concrete Spreader Name | Role | Phone | + [...] [place] | | | | | | [address] | | | | | | [phone] | | | +--------+ + + + [...] | | | | | | [address] | | | | | | [place] [address] | | | | | | [phone] | | | | | | | | +--------+---------+ + + + | 01/01/ | Office | Cardiology | Silvia, | | | 2019 | Visit | | PARISA Vernon [address] | | | | | | [place], | | | | | | [place] [address] | | | | | | [phone] | | | | | | | | +--------+---------+ + + + documented as of this encounter Visit Diagnoses Not on filedocumented in this encounter"
--- OUTSIDE RECORDS SUMMARY | ~2019-12-06 | XMS | Encounter Summary ---
Demographics + + + | Address | [address] | | | [place] [address] | + + + | Home Phone [...] Providers + +------+ + | Care Game Show Host Name | Role | Phone | + [...] | | CARDIOLOGY [address] | [address] | | | | | [place], | [place], | | | | | [place] [address] | [place] [address] | | | | | [phone] | [phone] | | | | | | | [...] | | | | | [place] [address] | | | | | | [phone] | | | | | | | | +--------+---------+ + + + | 01/01/ | Office | Cardiology | Silvia, | | | 2020 | Visit | | [place] [address] | | | | | | [place], | | | | | | [place] [address] | | | | | | [phone] | | | | | | | [...] | | | Phosphatase | | | [facility] | | | | | | MED[facility] | | | | | | CENTER - | | | | | | LABORATORY | | + +-------+ + + + | Bilirubin | 0.6 | 0.1 - 1.5 mg/dL | [facility] | | | Total | | | [facility] | | | | | [facility] | | | | | | CENTER - | | | | | | LABORATORY | | + +-------+ + + + | Total | 7.2 | 6.1 - 8.4 g/dL | [facility] | | | Protein | | | [facility] | [...] + | [facility] | [address] | [place] | [phone] | | [facility] | | [address] | | | - LABORATORY | | | | + + + + + | [facility] | [address] | [place], [place] | | | [facility] | | [address] | | | - LABORATORY | | [...] | | | | | gm/dL | [facility] | | | | | [...] | Count | | 10*3/uL | [facility] | | | | [...] | + +---------+ + + | YESSY GUTIERREZ. | | | | | [facility] | | | | | - LABORATORY | | | | + +---------+ + + documented in this encounter Visit Diagnoses Not on filedocumented in this encounter"
--- OUTSIDE RECORDS SUMMARY | ~2019-12-06 | XMS | Encounter Summary ---
Demographics + + + | Address | [address] | | | [place] [address] | + + + | Home Phone [...] Team Providers + +------+ + | Care Graphic Editor Name | Role | Phone | + +------+ + | Michael Amanda DO | PCP | | + +------+ + Encounter Details +--------+ + + + + | Date | Type | Department | Care Team | Description | +--------+ + + + + | 10/01/ | Hospital | [facility] | Mary Bradshaw | | | 2013 | Encounter | [facility] | Guy Larkin MD | | | | | [address] [place] | [address] | | | | | [place], [place] | [place], [place] | | | | | [address] | [address] | | | | | [phone] | | | +--------+ + + + [...] + + + +---------+ + + | Argenta-3 Fatty | CAPS, one capsule by | [...] | | | | | [place] [address] | | | | | | [phone] | | | | | | | | +--------+---------+ + + + | 01/01/ | Office | Cardiology | Silvia, | | | 2019 | Visit | | PAR[place] [address] | | | | | | [place], | | | | | | [place] [address] | | | | | | [phone] | | | | | | | [...] + | MISCELLANEOUS LAB | | | [phone] | + +---------+ + + | MISCELANIOUS LAB | | | [phone] | + +---------+ + + documented in this encounter Visit Diagnoses Not on filedocumented in this encounter"
--- OUTSIDE RECORDS SUMMARY | ~2019-12-06 | XMS | Encounter Summary ---
Demographics + + + | Address | [address] | | | [place] [address] | + + + | Home Phone [...] Team Providers + +------+ + | Care Bar Assistant Name | Role | Phone | [...] + + | 09/01/ | Office | [facility] | [place], | Ascending thoracic | | 2015 | Visit | CARDIOLOGY [address] | [place] [address] | aortic aneurysm | | | | [place], | [place], | ([facility]) (Primary Dx); | | | | [place] [address] | [place] [address] | Coronary artery | | | | [phone] | [phone] | disease involving | | | | | | [place]ann[place] coronary | | | | | | artery of shosh[place]annock | | | | | | heart [...] of non-critical coronary artery d isease involving [place] coronary artery of [place]osh[place]ann[place] heart without angina pectoris, essential h ypertension, [...] episode of chest pain while nelly ng [facility], so he took some sublingual nitroglycerin [...] Preventative health care Coronary artery disease involving [place] coronary artery of shoshone[place]bannock heart without angina pectoris Cannabis abuse, daily [...] by mouth every evening 90 tablet 3 [facility] Natural Products (OSTEO [...] 3rd dose, call 911 100 tablet 3 [place]-3 Fatty Acids (SALMON OIL-1000 PO) CAPS, one capsule by mouth daily twice daily ONE TOUCH DELICA LANCETS [facility] [...] reviewed during visit today primarily from [facility]: LIPID Lab Results Component Value Date [...] 129* 05/12/2016 I reviewed records from [facility] for office visit on 06/2016 [facility] ch is summarized in the HPI. [...] He is in class II of the [place] Heart Ass 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 On physical examination there are no signs of fluid overload. The plan will be to lose weight, modify portion control, start exercising, limit sodium in take and we will start losartan 25 mg once a day with a close monitoring of blood pressure. 2. Non-critical Coronary artery disease involving [place]ann[place] coronary artery of shoshone-bannock heart [facility] angina pectoris: A. Normal exercise sestamibi stress [...] to go back in 3 days to [place] for an attempt of ablation under general [...] this chart may have been created with Joinity voice recognition software. Occasi onal wrong-word or [...] | | | | | [place] [address] | | | | | | [phone] | | | | | | | | +--------+---------+ + + + | 01/01/ | Office | Cardiology | [place] | | 2019 | Visit | | PAR[place] [address] | | | | | | [place], | | | | | | [place] [address] | | | | | | [phone] | | | | | | | [...] + + | Coronary artery disease involving shoshone-bannock coronary artery of shoshone-bannock heart without | | angina pectoris | + + | Essential hypertension with goal blood pressure less than 130/80 | + + | Hyperlipidemia, mixed Mixed hyperlipidemia | + + documented in this encounter
--- OUTSIDE RECORDS SUMMARY | ~2019-12-06 | XMS | Clinical Summary ---
Demographics + + + | Address | [address] | | | [place] [address] | + + + | Home Phone [...] Team Providers + +------+ + | Care Tip Out Worker Name | Role | Phone | [...] | | + + + +---------+------+------+-------+ | [place]-3 Fatty | CAPS, one capsule by | [...] 1 tablet by | | 0 | / | | Activ | | (DILAUDID) 4 MG | mouth every 4 hours. | | | 04/10 | | e | | tablet | [...] | | | | | | | [place] coronary | | | | | | | | artery of [place] | | | | | [...] | mouth Daily. | tablet | | /20 | | e | | (TOPROL-XL) 100 [...] | + + + +---------+------+------+-------+ | | TAKE ONE TABLET BY | [...] | | + + + +---------+------+------+-------+ | Cinnamon Bark POWD | Take by mouth. | | 0 | | | Activ | | | | | | | | e | + + + +---------+------+------+-------+ | CYANOCOBALAMIN PO | Take by mouth. | | 0 | | | Activ | | | | | | | | e | + + + +---------+------+------+-------+ | acyclovir | Apply topically. | | 0 | 08/2 | | Activ | | (ZOVIRAX) 5% | | | | 2/20 | | e | | ointment | | | | 17 | | | + + + +---------+------+------+-------+ | cyclobenzaprine | | | 0 | 09/0 | | Activ | | (FLEXERIL) 10 mg | | | | 6/20 | | e | | tablet | | | | 19 | | | + + + +---------+------+------+-------+ | nortriptyline | Take 25 mg by mouth. | | 0 | 11/0 | | Activ | | (PAMELOR) 25 mg | | | | 7/20 | | e | | capsule | | | | 19 | | | + + + +---------+------+------+-------+ | ondansetron | Take 4 mg by mouth. | | 0 | /2 | | Activ | | (ZOFRAN) 4 mg tablet | | | | 05/11 | | e | | | | | | 19 | | | + + + +---------+------+------+-------+ | promethazine | | | 0 | 10/1 | | Activ | | (PHENERGAN) 12.5 MG | | | | 20 | | e | | tablet | | | | 19 | | | + + + +---------+------+------+-------+ | sertraline | Take 200 mg by | | 0 | 02/2 | /2 | Activ | | (ZOLOFT) 100 mg | mouth. | | | 6/ | 6/20 | e | | tablet | | | | 19 | 20 | | + + + +---------+------+------+-------+ | ELDERBERRY PO | Take by mouth. | | 0 | | | Activ | | | | | | | | e | + + + +---------+------+------+-------+ | | Take 1,000 mg by | | 0 | 03/0 | | Activ | | Methylsulfonylmethan | mouth. | | | 9/20 | | e | | e 1000 MG TABS | | | | 18 | | | + + + +---------+------+------+-------+ | PYRIDOXINE HCL PO | Take by mouth. | | 0 | | | Activ | | | | | | | | e | + + + +---------+------+------+-------+ | polyethylene | Take 4,000 mLs by | 4000 mL | 0 | 01/0 | 01/0 | Expir | | glycol (GOLYTELY) | mouth once for 1 | | | 8/20 | 8/20 | ed | | 236 g suspension | dose. Start at 4 pm | | | 20 | 20 | | | | day prior; drink | | | | | | | | half prep for | | | | | | | | Capsule Endoscopy; | | | | | | | | toss remaining; NPO | | | | | | | | by 1030pm | | | | | | + [...] + | Overview: Lower back injury (From [facility]) 1980 1984 | + + + + [...] + | Coronary artery disease involving [place] coronary artery of | 12/21/2013 | | [place] heart without angina pectoris | | + [...] attenuation cannot | | completely be ruled out.[facility] 12/25/13, shows non critical coronary | [...] | | CT Angiogram chest w/constrast 05/26/14 [facility] | + + + + + | [...] ventricular arrhythmia performed by Dr. Gambino at [facility] on 01/30/2013. Patient had spontaneous PVCs from [...] back in 3 days to | | [place] for an attempt of ablation under general [...] IMPLANTED GENERATOR | | Medtronic DDD ADDR01 [id number] 06/14/09 RV LEAD Medtronic Active | | Bipolar CapSureFix 4076 [id number] 06/14/09 A LEAD Medtronic | | Active Bipolar CapSurFix 4076 [id number] 06/14/09 | + + + +---+ | [...] | Heart Cath, 02/29/2012, LVEF is 65%, [facility] | | [facility] Myocardial Gated Stress Test, 05/25/2009, EF 53 | | % during rest and 52% during stress. [facility], | | [place], [place] Sestamibi Stress Test, 06/14/2008, LVEF is | | 60%, [facility] 12/25/13, shows noncritical | | coronary artery [...] Plan: Nonobstructive CAD noted | | on [facility] from 2013, no EKG changes, and [...] + + | 11/30/ | Abstract | Gastroenterology | Provider, | | | 2020 | | | MD Sawyer | | +--------+ + + + + | 11/29/ | Telephone | Gastroenterology | Darin Gandhi | Appointment | | 2020 | | | MD Jacek | | +--------+ + + + + | 11/20/ | Implant | Cardiology | Daljit Singletary, | Remote Device | | 2018 | Monitor | | MD | Interrogation | | | | | | (Primary Dx); | | | | | | Presence [...] | 2018 | Monitor | | MD | Interrogation | | | | | | (Primary Dx); | | | | | | Presence [...] + + | 11/17/ | Telephone | Family Medicine | Kirk French | | | 2018 | | | MD Brea | | +--------+ + + + + | 11/10/ | Orders Only | Gastroenterology | Darin Gandhi | Diarrhea, | | 2018 | | | MD Jacek | unspecified type | | | | | | (Primary Dx); | | | | | | Unintentional weight | | | | | | loss | +--------+ + + + + | 11/03/ | Refill | Family Medicine | Kirk [...] | | | | | | unspecified ([facility]); | | | | | | Mixed [...] PUD | +--------+ + + + + from [...] + + | Mother | | | [place] | | | | (Age | | [...] | | | | | | [place] [address] | | | | | | [phone] | | | | | | | | +--------+---------+ + + + | 01/01/ | Office | Cardiology | [place], | | | 2019 | Visit | | [place] [address] | | | | | | [place], | | | | | | [place] [address] | | | | | | [phone] | | | | | | | [...] Frm 6 | Stent | Left: | [facility] | | 09/27/ | [id number] | | - [id number]: | | Ureter | [employer] | | 2020 | / | | Qty: 1 on 04/13/2019 by | | | - [place] | | | /[id number] | | Matthew Uriarte MD at | | | | | | 57 | | [facility] | | | | | | | | [facility] | | | | | [...] | | + +--------+ + + + from Last 3 Months Results Device Interrogation - Remote (11/20/2019 11:59 PM PST)Only the most recent of 2 results wi thin the time period is included. + + + | Narrative | Performed At | + + + | Daljit | [facility] | | MD Gemini 11/13/2019 2:23 PMDate of Remote Interrogation: | | | 11/06/19 Refer to [facility]art documentation and remote PDF scanned into | | | [facility] for remote interrogation results. Data collected by ABDOUL Fitzpatrick | | | [place] Presenting rhythm: atrial paced ventricular sensed with | | | rate at 82-86 beats. 2 mode switch episodes accounting for <0.1% of | | | the time.No episodes. 901 PVC singles 180.2 PVC | | | singles/month6 PVC runs 1.2 PVC | | | runs/monthHistogram good Battery longevity 15 months.Apparent | | | normal and stable device function.Device interrogation due in office | | | in 08/2019Patient notified via voicemail. | | |901 PVC singles 180.2 PVC singles/month | | |6 PVC runs 1.2 PVC runs/month | | |Histogram good Battery longevity 15 months. | | |Apparent normal and stable device function. | | |Device interrogation due in office in 08/2019 | | |Patient notified via voicemail. | [...] +--------+ +---------+--------+ | MEDICARE | MEDICA | [id number] | 01/21/20 | [phone] | | Medica | | | RE | | 01-Pre | 5 | | re | | | PART A | | sent | | | | | | AND B | | | | | | + +--------+ +--------+ +---------+--------+ | MEDICARE | MEDICA | [id number] | 01/21/20 | [phone] | | Medica | | | RE | | 01-Pre | 5 | | re | | | PART A | | sent | | | | | | AND B | | | | | | + +--------+ +--------+ +---------+--------+ | AARP | AARP | [id number] | | [phone] | | Indemn | | | MDCR | | 016-Pr | 0 | | ity | | | SUPPL | | esent | | | | + +--------+ +--------+ +---------+--------+ | AARP | AARP | [id number] | 11/22/19 | [phone] | | Indemn [...] Person | Self | [birth year] | [address] | | Kirk | cristo/Per | | 1959 | [phone] | [place] | | | [place] | | | 8 (Home) | [address] | + +--------+ +--------+ + + | Moe Sanchez | Person | Self | [birth year] | [address] | | Kirk | al/Fam | | 1960 | [phone] | [place] | | | [place] | | | 8 (Home) | [address] | + +--------+ +--------+ + + | Moe Sanchez | Dave | Self | [birth year] | [address] | | Kirk | [employer] Party | | [id number] | [phone] | [address] [place] | | | [place] | | | 3 ([place]) | [address] | | | ity | | | | | + +--------+ +--------+ + + Advance Directives + + + + + | Type | Date Recorded | Patient | Explanation | | | | Paper Final Inspector | | + + + + + | Power of | | | | | Network Program Manager | | | | + + [...]
--- OUTSIDE RECORDS SUMMARY | ~2019-12-06 | XMS | Encounter Summary ---
Demographics + + + | Address | [address] | | | [place] [address] | + + + | Home Phone [...] Team Providers + +------+ + | Care Crown Ironer Operator Name | Role | Phone | + +------+ + | Kirk French MD | PCP | | + +------+ + Encounter Details +--------+ + + + + | Date | Type | Department | Care Team | Description | +--------+ + + + + | 12/23/ | Emergency | [facility] | Cristal Alexander, | Chronic neck pain; | | 2015 | | [facility]ENTER | DO [address] | Headache(784.0) | | | | EMERGENCY CENTER | [place] [address] | | | | | [address] | [phone] | | | | | [place], [place] | | | | | | [address] | | | | | | [phone] | | | +--------+ + + + [...] + + + +---------+ + + | [place]-3 Fatty | CAPS, one capsule by | [...] | | | | | | | #[id number], exp 07/2016 | | | | | [...] | | | | | [place] [address] | | | | | | [phone] | | | | | | | | +--------+---------+ + + + | 01/01/ | Office | Cardiology | [place], | | | 2019 | Visit | | PAR[place] [address] | | | | | | [place], | | | | | | [place] [address] | | | | | | [phone] | | | | | | | [...] Brown Conversion - 07/07/2019 5:05 AM FRANCY [id number] years MaleCT | | CERVICAL SPINE WO [...]
--- OUTSIDE RECORDS SUMMARY | ~2019-12-06 | XMS | Encounter Summary ---
Demographics + + + | Address | [address] | | | [place] [address] | + + + | Home Phone [...] Team Providers + +------+ + | Care Element Winding Machine Tender Name | Role | Phone [...] + | 07/01/ | Telephone | [facility] | Daljit Singletary, | Other (EKG) | | 2017 | | CARDIOLOGY [address] | MD [address] [place] | | | | | [place], | [place], | | | | | [place] [address] | [place] [address] | | | | | [phone] | [phone] | | | | | | | [...] | | | | | [place] [address] | | | | | | [phone] | | | | | | | | +--------+---------+ + + + | 01/01/ | Office | Cardiology | [place], | | | 2019 | Visit | | [place] [address] | | | | | | [place] | | | | | | [place] [address] | | | | | | [phone] | | | | | | | | +--------+---------+ + + + documented as of this encounter Visit Diagnoses Not on filedocumented in this encounter"
--- OUTSIDE RECORDS SUMMARY | ~2019-12-06 | XMS | Encounter Summary ---
Demographics + + + | Address | [address] | | | [place] [address] | + + + | Home Phone [...] Team Providers + +------+ + | Care Recreational Therapist Name | Role | Phone | [...] abdominal | [address] | [address], | | | | | pain | [address] | [address] | | | | | Chronic pain | [address] | [place], | | | | | syndrome | [place], [place] | [place] [address] | | | | | Procedures | [address] | Phone: | | | | | Office Visit | Phone: | [phone] | | | | | | [phone] | Fax: | | | | | | Fax: | [phone] | | | | | | [phone] | | +--------+--------+ + + + + Encounter Details +--------+---------+ + + + | Date | Type | Department | Care Team | Description | +--------+---------+ + + + | 12/02/ | [facility] [place] | Emmanuel Daniel MD | Diarrhea, | | 2018 | Visit | GASTROENTEROLOGY | [address], [place] | unspecified type | | | | [address] | [address] [place], [place] | (Primary Dx); Weight | | | | [address] [place], [place] | [address] | loss, | | | | [address] | | unintentional; | | | | [phone] | | Generalized | | | | [...] | | | | | [place] [address] | | | | | | [phone] | | | | | | | | +--------+---------+ + + + | 01/01/ | Office | Cardiology | [place], | | | 2019 | Visit | | [place] [address] | | | | | | [place] | | | | | | [place] [address] | | | | | | [phone] | | | | | | | [...]
--- OUTSIDE RECORDS SUMMARY | ~2019-12-06 | XMS | Encounter Summary ---
Demographics + + + | Address | [address] | | | [place] [address] | + + + | Home Phone [...] Team Providers + +------+ + | Care Low Vision Therapist Name | Role | Phone | [...] + + | 12/23/ | Telephone | [facility] | Emmanuel Daniel MD | Other (Needs to know | | 2017 | | GASTROENTEROLOGY | [address], [place] | what he can eat | | | | [address] | [address] [place], [place] | today) | | | | [address] [place], [place] | [address] | | | | | [address] | | | | | | [phone] | | | +--------+ + + + [...] | | | | | [place] [address] | | | | | | [phone] | | | | | | | | +--------+---------+ + + + | 01/01/ | Office | Cardiology | [place], | | | 2019 | Visit | | [place] [address] | | | | | | [place] | | | | | | [place] [address] | | | | | | [phone] | | | | | | | | +--------+---------+ + + + documented as of this encounter Visit Diagnoses Not on filedocumented in this encounter"
--- OUTSIDE RECORDS SUMMARY | ~2019-12-06 | XMS | Encounter Summary ---
Demographics + + + | Address | [address] | | | [place] [address] | + + + | Home Phone [...] Team Providers + +------+ + | Care Electronics Detail Draftsperson Name | Role | Phone | + [...] Closed | | Radiology | Diagnoses | Hermilo | | | | | | Spinal | Pia | | | | | | stenosis, | Sofía, MD | | | | | | lumbar | [address] | | | | | | region | [address] | | | | | | Procedures | [address] | | | | | | CT | [place], [place] | | | | | | Myelography | [address] | | | | | | Lumbar Spine | Phone: | | | | | | | [phone] | | | | | | | Fax: | | | | | | | [phone] | | +--------+--------+ + + + + [...] | | | | | stenosis, | Sofía, MD | | | | | | lumbar | [address] | | | | | | region | [address] | | | | | | Procedures | [address] | | | | | | CT | [place], [place] | | | | | | Myelography | [address] | | | | | | Lumbar Spine | Phone: | | | | | | | [phone] | | | | | | | Fax: | | | | | | | [phone] | | +--------+--------+ + + + + Encounter Details +--------+ + + + + | Date | Type | Department | Care Team | Description | +--------+ + + + + | 04/07/ | Hospital | [facility] | Pia Akhtar | Spinal stenosis, | | 2016 | Encounter | MED CTR [address] | MD Sofía [address] | lumbar region | | | | [place], | [address] | | | | | [place] [address] | [place] [address] | | | | | [phone] | [phone] | | | | | | | [...] + + + +---------+ + + | [place]-3 Fatty | CAPS, one capsule by | [...] one tablet | 100 | 3 | 09/01/20 | | | (NITROSTAT) 0.4 mg | [...] | | | | | | [place] [address] | | | | | | [phone] | | | | | | | | +--------+---------+ + + + | 01/01/ | Office | Cardiology | [place], | | | 2019 | Visit | | PARISA [place] [address] | | | | | | [place], | | | | | | [place] [address] | | | | | | [phone] | | | | | | | [...] + | Kalpesh Brown Results In - 04/07/2016 12:57 PM PDT [...]
--- OUTSIDE RECORDS SUMMARY | ~2019-12-06 | XMS | Encounter Summary ---
Demographics + + + | Address | [address] | | | [place] [address] | + + + | Home Phone [...] Providers + +------+ + | Care Strategic Sourcing Consultant Name | Role | Phone [...] + | 02/27/ | Telephone | [facility] | [place], | Chest Pain (Patient | | 2013 | | CARDIOLOGY [address] | Janeen, 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 STUDIES PROFESSOR [address] | having chest pain) | | | | [place], | [place], | | | | | [place] [address] | [place] [address] | | | | | [phone] | [phone] | | | | | | | [...] | | | | | [place] [address] | | | | | | [phone] | | | | | | | | +--------+---------+ + + + | 01/01/ | Office | Cardiology | [place], | | | 2019 | Visit | | [place] [address] | | | | | | [place], | | | | | | [place] [address] | | | | | | [phone] | | | | | | | | +--------+---------+ + + + documented as of this encounter Visit Diagnoses Not on filedocumented in this encounter"
--- OUTSIDE RECORDS SUMMARY | ~2019-12-06 | XMS | Encounter Summary ---
Demographics + + + | Address | [address] | | | [place] [address] | + + + | Home Phone [...] Providers + +------+ + | Care Car Wiper Name | Role | Phone | + [...] [address] | | | | | [place], | [place], | | | | | [place] [address] | [place] [address] | | | | | [phone] | [phone] | | | | | | | [...] | | | | | | [place] [address] | | | | | | [phone] | | | | | | | | +--------+---------+ + + + | 01/01/ | Office | Cardiology | Silvia, | | | 2019 | Visit | | PARISA Vernon [address] | | | | | | [place], | | | | | | [place] [address] | | | | | | [phone] | | | | | | | [...] Resulting Agency Comment | + + | [facility] | + + + +---------+ + + [...] +-------+ + + + | BUN, | 13 | 6 - 23 | EXTERNAL | | | External | | | LAB | | + +-------+ + + + + + | Resulting Agency Comment | + + | [facility] | + + + +---------+ + + [...] Resulting Agency Comment | + + | [facility] | + + + +---------+ + + [...] Agency Comment | + + | [facility] | + + + +---------+ + + [...] Resulting Agency Comment | + + | [facility] | + + + +---------+ [...] Resulting Agency Comment | + + | [facility] | + + + +---------+ + + [...] Resulting Agency Comment | + + | [facility] | + + + +---------+ + + [...] Resulting Agency Comment | + + | [facility] | + + + +---------+ + + [...] Resulting Agency Comment | + + | [facility] | + + + +---------+ + + [...] Resulting Agency Comment | + + | [facility] | + + + +---------+ [...] Resulting Agency Comment | + + | [facility] | + + + +---------+ + [...] Resulting Agency Comment | + + | [facility] | + + + +---------+ + + [...] Resulting Agency Comment | + + | [facility] | + + + +---------+ + [...] Resulting Agency Comment | + + | [facility] | + + + +---------+ + + [...] Agency Comment | + + | [facility] | + + + +---------+ + + | Performing | Address | City/State/Zipcode | Phone Number | | Organization | | | | + +---------+ + + | EXTERNAL LAB | | | | + +---------+ + + External Lab: CBC (11/05/2016 10:20 AM PST) + +-------+ + [...] Resulting Agency Comment | + + | [facility] | + + + +---------+ + + [...] Resulting Agency Comment | + + | [facility] | + + + +---------+ + [...] Resulting Agency Comment | + + | [facility] | + + + +---------+ + + [...] Resulting Agency Comment | + + | [facility] | + + + +---------+ + [...]
--- OUTSIDE RECORDS SUMMARY | ~2019-12-06 | XMS | Encounter Summary ---
Demographics + + + | Address | [address] | | | [place] [address] | + + + | Home Phone [...] Team Providers + +------+ + | Care Starch Mangle Tender Name | Role | Phone | [...] + | 06/20/ | Telephone | [facility] | Daljit Singletary, | Chest Pain | | 2018 | | CARDIOLOGY [address] | MD [address] [place] | | | | | [place], | [place], | | | | | [place] [address] | [place] [address] | | | | | [phone] | [phone] | | | | | | | [...] | | | | | | [place] [address] | | | | | | [phone] | | | | | | | | +--------+---------+ + + + | 01/01/ | Office | Cardiology | Silvia, | | | 2019 | Visit | | PARISA [address] | | | | | | [place], | | | | | | [place] [address] | | | | | | [phone] | | | | | | | | +--------+---------+ + + + documented as of this encounter Visit Diagnoses Not on filedocumented in this encounter"
--- OUTSIDE RECORDS SUMMARY | ~2019-12-06 | XMS | Encounter Summary ---
Demographics + + + | Address | [address] | | | [place] [address] | + + + | Home Phone [...] Providers + +------+ + | Care Supervisor Framing Mill Name | Role | Phone | + [...] 2015 | | CARDIOLOGY [address] | CREW LEADER/CONTROL ROOM OPERATOR [address] | | | | | [place], | [place], [place] | | | | | [place] [address] | [address] | | | | | [phone] | | | +--------+--------+ + + + [...] | | | | | [place] [address] | | | | | | [phone] | | | | | | | | +--------+---------+ + + + | 01/01/ | Office | Cardiology | Silvia, | | | 2019 | Visit | | PARISA [place] [address] | | | | | | [place], | | | | | | [place] [address] | | | | | | [phone] | | | | | | | | +--------+---------+ + + + documented as of this encounter Visit Diagnoses Not on filedocumented in this encounter"
--- OUTSIDE RECORDS SUMMARY | ~2019-12-06 | XMS | Encounter Summary ---
Demographics + + + | Address | [address] | | | [place] [address] | + + + | Home Phone [...] Team Providers + +------+ + | Care Packaging Line Operator Name | Role | Phone | + +------+ + PCP | Unavailable | + +------+ + Encounter Details +--------+ + + + + | Date | Type | Department | Care Team | Description | +--------+ + + + + | 08/26/ | Hospital | [facility] | | | | 2009 | Encounter | MED CTR LABORATORY | | | | | | [address] | | | | | | [place] | | | | | | [address] | | | | | | [phone] | | | +--------+ + + + [...] | | | | | [place] [address] | | | | | | [phone] | | | | | | | | +--------+---------+ + + + | 01/01/ | Office | Cardiology | Silvia, | | | 2020 | Visit | | PARISA [place] [address] | | | | | | [place], | | | | | | [place] [address] | | | | | | [phone] | | | | | | | | +--------+---------+ + + + documented as of this encounter Visit Diagnoses Not on filedocumented in this encounter"
--- OUTSIDE RECORDS SUMMARY | ~2019-12-06 | XMS | Encounter Summary ---
Demographics + + + | Address | [address] | | | [place] [address] | + + + | Home Phone [...] Team Providers + +------+ + | Care Betting Agency Manager Name | Role | Phone | [...] 2019 | | GASTROENTEROLOGY | MD [address] | | | | | [address] | [place]. [place] | | | | | [address] | [place] [address] | | | | | [address] | | | | | | [phone] | | | +--------+ + + + [...] | | | | | [place] [address] | | | | | | [phone] | | | | | | | | +--------+---------+ + + + | 01/01/ | Office | Cardiology | Silvia, | | | 2019 | Visit | | PARISA [place] [address] | | | | | | [place], | | | | | | [place] [address] | | | | | | [phone] | | | | | | | | +--------+---------+ + + + documented as of this encounter Visit Diagnoses Not on filedocumented in this encounter"
--- OUTSIDE RECORDS SUMMARY | ~2019-12-06 | XMS | Encounter Summary ---
Demographics + + + | Address | [address] | | | [place] [address] | + + + | Home Phone [...] Providers + +------+ + | Care Mail Room Clerk Name | Role | Phone | [...] Provider Unknown | | | | | [place], [place] | [phone] | | | | | [address] | | | | | | [phone] | | | +--------+ + + + [...] + + + +---------+ + + | [place]-3 Fatty | CAPS, one capsule by | [...] | | | | | | | #[id number], exp 07/2016 | | | | | [...] | | | | | [place] [address] | | | | | | [phone] | | | | | | | | +--------+---------+ + + + | 01/01/ | Office | Cardiology | Silvia, | | | 2019 | Visit | | PARISA Vernon [address] | | | | | | [place] | | | | | | [place] [address] | | | | | | [phone] | | | | | | | [...]
--- OUTSIDE RECORDS SUMMARY | ~2019-12-06 | XMS | Encounter Summary ---
Demographics + + + | Address | [address] | | | [place] [address] | + + + | Home Phone [...] Providers + +------+ + | Care Mine Development Engineer Name | Role | Phone | + +------+ + | Kirk French MD | PCP | | + +------+ + Encounter Details +--------+ + + + + | Date | Type | Department | Care Team | Description | +--------+ + + + + | 01/25/ | Hospital | [facility] | Daljit Singletary, | Stable angina | | 2019 | Encounter | MED CTR CV INTRA OP | MD [address] | pectoris (HCC) | | | | [address] | [place], | | | | | [place] | [place] [address] | | | | | [address] | [phone] | | | | | [phone] | | | +--------+ + + + [...] as a collagen plugis used on the omaha triny site to close the site, you [...] by your healthcare provider Date Last Reviewed: 09/22/201619996184-8221 [employer]. [address] [place] [address]. All righ ts reserved. This information is [...] + + + +---------+ + + | [place]-3 Fatty | CAPS, one capsule by | [...] tablet by | | 0 | | 12/13/201 | | diphenoxylate-atropi | mouth 4 times [...] | | | | | | [place] [address] | | | | | | [phone] | | | | | | | | +--------+---------+ + + + | 01/01/ | Office | Cardiology | Silvia, | | | 2019 | Visit | | PARISA [place] [address] | | | | | | [place], | | | | | | [place] [address] | | | | | | [phone] | | | | | | | [...] ANGIOGRAPHY PATIENT NAME/: | | | Moe Kirk Sanchez, (1960) MEDICAL RECORD NUMBER: | | | [id number] OF PROCEDURE: 01/25/2019 MANAGER TRAFFIC: Daljit | | | MD Gemini PROCEDURES [...] medical management. [facility] | | | PROVIDER:Krik French MD For additional detail as to [...] Sanchez, (1960) | | OF PROCEDURE: 01/25/2019PRIMARY ZINC PLATER: Daljit Singletary MD PROCEDURES | | PERFORMED:Coronary [...] | Aggressive medical management. | | [facility] PROVIDER:Kirk French MDFor additional detail as [...]
--- OUTSIDE RECORDS SUMMARY | ~2019-12-06 | XMS | Encounter Summary ---
Demographics + + + | Address | [address] | | | [place] [address] | + + + | Home Phone [...] Providers + +------+ + | Care Tube Making Machine Operator Name | Role | Phone [...] | | CARDIOLOGY [address] | Janeen POTATO BUCKER [address] | | | | | [employer] [place], | [place], | | | | | [place] [address] | [place] [address] | | | | | [phone] | [phone] | | | | | | | [...] | | | | | | [place] [address] | | | | | | [phone] | | | | | | | | +--------+---------+ + + + | 01/01/ | Office | Cardiology | Silvia, | | | 2019 | Visit | | PARISA [place] [address] | | | | | | [place], | | | | | | [place] [address] | | | | | | [phone] | | | | | | | | +--------+---------+ + + + documented as of this encounter Visit Diagnoses Not on filedocumented in this encounter"
--- OUTSIDE RECORDS SUMMARY | ~2019-12-06 | XMS | Encounter Summary ---
Demographics + + + | Address | [address] | | | [place] [address] | + + + | Home Phone [...] Providers + +------+ + | Care Rn Cvicu Name | Role | Phone | + [...] | 01/04/ | Telephone | [facility] [place] | Emmanuel Daniel MD | Other | | 2019 | | GASTROENTEROLOGY | [address], [place] | | | | | [address] [place] | [address] [place], [place] | | | | | [address] [place], [place] | [address] | | | | | [address] | | | | | | [phone] | | | +--------+ + + + [...] | | | | | [place] [address] | | | | | | [phone] | | | | | | | | +--------+---------+ + + + | 01/01/ | Office | Cardiology | Silvia, | | | 2019 | Visit | | PARISA [place] [address] | | | | | | [place] | | | | | | [place] [address] | | | | | | [phone] | | | | | | | | +--------+---------+ + + + documented as of this encounter Visit Diagnoses Not on filedocumented in this encounter"
--- OUTSIDE RECORDS SUMMARY | ~2019-12-06 | XMS | Encounter Summary ---
Demographics + + + | Address | [address] | | | [place] [address] | + + + | Home Phone [...] Team Providers + +------+ + | Care Homicide Squad Captain Name | Role | Phone | [...] | 03/02/ | Telephone | [facility] [place] | Daljit Singletary, | Other | | 2013 | | CARDIOLOGY [address] | MD [address] [place] | | | | | [place], | [place], | | | | | [place] [address] | [place] [address] | | | | | [phone] | [phone] | | | | | | | [...] | | | | | | [place] [address] | | | | | | [phone] | | | | | | | | +--------+---------+ + + + | 01/01/ | Office | Cardiology | Silvia, | | | 2019 | Visit | | PARISA [place] [address] | | | | | | [place], | | | | | | [place] [address] | | | | | | [phone] | | | | | | | | +--------+---------+ + + + documented as of this encounter Visit Diagnoses Not on filedocumented in this encounter"
--- OUTSIDE RECORDS SUMMARY | ~2019-12-06 | XMS | Encounter Summary ---
Demographics + + + | Address | [address] | | | [place] [address] | + + + | Home Phone [...] Team Providers + +------+ + | Care Cook Camp Name | Role | Phone | + [...] | 09/01/ | Telephone | [facility] | [place]via, | Appointment | | 2016 | | CARDIOLOGY [address] | PAR[place] [address] | (Reschedule) | | | | [place], | [place], | | | | | [place] [address] | [place] [address] | | | | | [phone] | [phone] | | | | | | | [...] | | | | | [place] [address] | | | | | | [phone] | | | | | | | | +--------+---------+ + + + | 01/01/ | Office | Cardiology | Silvia, | | | 2019 | Visit | | PARISA [place] [address] | | | | | | [place], | | | | | | [place] [address] | | | | | | [phone] | | | | | | | | +--------+---------+ + + + documented as of this encounter Visit Diagnoses Not on filedocumented in this encounter"
--- OUTSIDE RECORDS SUMMARY | ~2019-12-06 | XMS | Encounter Summary ---
Demographics + + + | Address | [address] | | | [place] [address] | + + + | Home Phone [...] Team Providers + +------+ + | Care Programming Internship Name | Role | Phone | + +------+ + | Kirk French MD | PCP | | + +------+ + Encounter Details +--------+ + + + + | Date | Type | Department | Care Team | Description | +--------+ + + + + | 07/05/ | Hospital | [facility] | Conversion | Acute neck pain | | 2017 | Encounter | [facility] | Transaction, | | | | | [address] | Provider Unknown | | | | | [address] [place], [place] | [phone] | | | | | [address] | | | | | | [phone] | Apolonia Ruano | | | | | | MD Shelly [address] | | | | | | [address] | | | | | | [place], [place] | | | | | | [address] | | | | | | [phone] | | +--------+ + + + + [...] + + + +---------+ + + | [place]-3 Fatty | CAPS, one capsule by | [...] | | | | | [place] [address] | | | | | | [phone] | | | | | | | | +--------+---------+ + + + | 01/01/ | Office | Cardiology | Silvia, | | | 2019 | Visit | | PARISA [place] [address] | | | | | | [place], | | | | | | [place] [address] | | | | | | [phone] | | | | | | | [...]
--- OUTSIDE RECORDS SUMMARY | ~2019-12-06 | XMS | Encounter Summary ---
Demographics + + + | Address | [address] | | | [place] [address] | + + + | Home Phone [...] + + | 05/11/ | Hospital | [facility] | Conversion | Lumbago; | | 2013 | Encounter | [facility] | Transaction, | Postlaminectomy | | | | [address] | Provider Unknown | syndrome, cervical | | | | [place], [place] | | region; Cervicalgia | | | | [address] | (Fax) | | | | | [phone] | | | +--------+ + + + [...] + + + +---------+ + + | [place]-3 Fatty | CAPS, one capsule by | [...] 1147 Date of Service: 05/11/141145 Status: Signed Ocean Import Representative: Christine Mcgraw Report called to Brittany morejon [...] | | | | | | [place] [address] | | | | | | [phone] | | | | | | | | +--------+---------+ + + + | 01/01/ | Office | Cardiology | Silvia, | | | 2019 | Visit | | PARISA [place] [address] | | | | | | [place], | | | | | | [place] [address] | | | | | | [phone] | | | | | | | [...]
--- OUTSIDE RECORDS SUMMARY | ~2019-12-06 | XMS | Encounter Summary ---
Demographics + + + | Address | [address] | | | [place] [address] | + + + | Home Phone [...] Providers + +------+ + | Care Forensic Medical Examiner Name | Role | Phone | [...] | 05/08/ | Telephone | [facility] [place] | Emmanuel Daniel MD | Other | | 2019 | | GASTROENTEROLOGY | [address] [place], [place] | | | | | [address] [place] | [address] [place], [place] | | | | | [address] [place], [place] | [address] | | | | | [address] | | | | | | [phone] | | | +--------+ + + + [...] | | | | | [place] [address] | | | | | | [phone] | | | | | | | | +--------+---------+ + + + | 01/01/ | Office | Cardiology | Silvia, | | | 2019 | Visit | | PARISA [place] [address] | | | | | | [place] | | | | | | [place] [address] | | | | | | [phone] | | | | | | | | +--------+---------+ + + + documented as of this encounter Visit Diagnoses Not on filedocumented in this encounter"
--- OUTSIDE RECORDS SUMMARY | ~2019-12-06 | XMS | Encounter Summary ---
Demographics + + + | Address | [address] | | | [place] [address] | + + + | Home Phone [...] Providers + +------+ + | Care Mixer Tender Name | Role | Phone | [...] + + | 08/04/ | Telephone | [facility] | [place], | Other (4 week event | | 2017 | | CARDIOLOGY [address] | [place]ISA [place] [address] | monitor ) | | | | [place], | [place], | | | | | [place] [address] | [place] [address] | | | | | [phone] | [phone] | | | | | | | [...] | 2019 | Visit | | MD aJcek [address] | | | | | | [address] | | | | | | [place] [address] | | | | | | [phone] | | | | | | | | +--------+---------+ + + + | 01/01/ | Office | Cardiology | Silvia, | | | 2019 | Visit | | PARISA [place] [address] | | | | | | [place] | | | | | | [place] [address] | | | | | | [phone] | | | | | | | | +--------+---------+ + + + documented as of this encounter Visit Diagnoses Not on filedocumented in this encounter"
--- OUTSIDE RECORDS SUMMARY | ~2019-12-06 | XMS | Encounter Summary ---
Demographics + + + | Address | [address] | | | [place] [address] | + + + | Home Phone [...] Providers + +------+ + | Care Diabetes Physician Name | Role | Phone | + +------+ + | Michael Amanda DO | PCP | | + +------+ + Encounter Details +--------+ + + + + | Date | Type | Department | Care Team | Description | +--------+ + + + + | 09/22/ | Hospital | [facility] | Bahman Gant MD | | | 2012 | Encounter | MED CTR XRAY [address] | [address] [place] | | | | | [place] | [address] [place], | | | | | [place] [address] | [place] [address] | | | | | [phone] | [phone] | | | | | | | [...] + + + +---------+ + + | [place]-3 Fatty | CAPS, one capsule by | [...] | | | | | [place] [address] | | | | | | [phone] | | | | | | | | +--------+---------+ + + + | 01/01/ | Office | Cardiology | Silvia, | | | 2019 | Visit | | PARISA [place] [address] | | | | | | [place] | | | | | | [place] [address] | | | | | | [phone] | | | | | | | | +--------+---------+ + + + documented as of this encounter Visit Diagnoses Not on filedocumented in this encounter"
--- OUTSIDE RECORDS SUMMARY | ~2019-12-06 | XMS | Encounter Summary ---
Demographics + + + | Address | [address] | | | [place] [address] | + + + | Home Phone [...] Team Providers + +------+ + | Care Site Controller Name | Role | Phone | [...] 2015 | | CARDIOLOGY [address] | SENIOR RADIATION PROTECTION TECHNICIAN [address] [place] | reprogramming/check | | | | [place], | [place], [place] | [place] DELETE | | | | [place] [address] | [address] | (Primary Dx); | | | | [phone] | | Pacemaker - | | | [...] | | | | | [place] [address] | | | | | | [phone] | | | | | | | | +--------+---------+ + + + | 01/01/ | Office | Cardiology | Silvia, | | | 2019 | Visit | | PARISA [place] [address] | | | | | | [place], | | | | | | [place] [address] | | | | | | [phone] | | | | | | | [...] | | 2. Coronary artery disease involving council coronary artery of | | | council heart without angina pectoris I25.10 414.01 ECHO [...]
--- OUTSIDE RECORDS SUMMARY | ~2019-12-06 | XMS | Encounter Summary ---
Demographics + + + | Address | [address] | | | [place] [address] | + + + | Home Phone [...] Team Providers + +------+ + | Care Rail Loader Name | Role | Phone | [...] Provider Unknown | | | | | [place], [place] | [phone] | | | | | [address] | | | | | | [phone] | | | +--------+ + + + [...] + + + +---------+ + + | [place]-3 Fatty | CAPS, one capsule by | [...] | | | | | [place] [address] | | | | | | [phone] | | | | | | | | +--------+---------+ + + + | 01/01/ | Office | Cardiology | Silvia | | | 2019 | Visit | | PARISA [place] [address] | | | | | | [place] | | | | | | [place] [address] | | | | | | [phone] | | | | | | | [...]
--- OUTSIDE RECORDS SUMMARY | ~2019-12-06 | XMS | Encounter Summary ---
Demographics + + + | Address | [address] | | | [place] [address] | + + + | Home Phone [...] Team Providers + +------+ + | Care Third Cook Name | Role | Phone | [...] | CARDIOLOGY [address] | MD [address] [place] | | | | | [place], | [place], | | | | | [place] [address] | [place] [address] | | | | | [phone] | [phone] | | | | | | | [...] | | | | | | [place] [address] | | | | | | [phone] | | | | | | | | +--------+---------+ + + + | 01/01/ | Office | Cardiology | Silvia, | | | 2019 | Visit | | PAR[facility] [place] [address] | | | | | | [place] | | | | | | [place] [address] | | | | | | [phone] | | | | | | | | +--------+---------+ + + + documented as of this encounter Visit Diagnoses Not on filedocumented in this encounter"
--- OUTSIDE RECORDS SUMMARY | ~2019-12-06 | XMS | Encounter Summary ---
Demographics + + + | Address | [address] | | | [place] [address] | + + + | Home Phone [...] Team Providers + +------+ + | Care Teaching Music Lessons Name | Role | Phone | + [...] | Refill | [facility] [place] | [place], | Medication Refill | | 2014 | | CARDIOLOGY [address] | PAR[place] [address] | | | | | [place], | [place], | | | | | [place] [address] | [place] [address] | | | | | [phone] | [phone] | | | | | | | [...] | | | | | [place] [address] | | | | | | [phone] | | | | | | | | +--------+---------+ + + + | 01/01/ | Office | Cardiology | [place]via, | | | 2019 | Visit | | PARISA [place] [address] | | | | | | [place], | | | | | | [place] [address] | | | | | | [phone] | | | | | | | | +--------+---------+ + + + documented as of this encounter Visit Diagnoses Not on filedocumented in this encounter"
--- OUTSIDE RECORDS SUMMARY | ~2019-12-06 | XMS | Encounter Summary ---
Demographics + + + | Address | [address] | | | [place] [address] | + + + | Home Phone [...] Providers + +------+ + | Care Automobile Lights Assembler Name | Role | Phone | [...] [address] [place] | | | | | [place], [place] | [address] | | | | | [address] | [place] [address] | | | | | [phone] | [phone] | | | | | | | [...] | 12/18/ | Office | Gastroenterology | Darni Gandhi | | | 2019 | Visit | | MD Jacek [address] | | | | | | [address] [address] | | | | | | [place] [address] | | | | | | [phone] | | | | | | | | +--------+---------+ + + + | 01/01/ | Office | Cardiology | Silvia, | | | 2019 | Visit | | PAR[facility] [place] [address] | | | | | | [place], | | | | | | [place] [address] | | | | | | [phone] | | | | | | | [...]
--- OUTSIDE RECORDS SUMMARY | ~2019-12-06 | XMS | Encounter Summary ---
Demographics + + + | Address | [address] | | | [place] [address] | + + + | Home Phone [...] Team Providers + +------+ + | Care Procurement Technician Name | Role | Phone | [...] | 01/05/ | Telephone | [facility] | Emmanuel Daniel MD | Other | | 2019 | | GASTROENTEROLOGY | [address], [place] | | | | | [address] [place] | [address] [place], [place] | | | | | [address] [place], [place] | [address] | | | | | [address] | | | | | | [phone] | | | +--------+ + + + [...] | | | | | [place] [address] | | | | | | [phone] | | | | | | | | +--------+---------+ + + + | 01/01/ | Office | Cardiology | [place], | | | 2019 | Visit | | PARISA [place] [address] | | | | | | [place] | | | | | | [place] [address] | | | | | | [phone] | | | | | | | | +--------+---------+ + + + documented as of this encounter Visit Diagnoses Not on filedocumented in this encounter"
--- OUTSIDE RECORDS SUMMARY | ~2019-12-06 | XMS | Encounter Summary ---
Demographics + + + | Address | [address] | | | [place] [address] | + + + | Home Phone [...] Providers + +------+ + | Care Linux Network Systems Administrator Name | Role | Phone [...] + + | 08/14/ | Telephone | [facility] | Michael Amanda, | Appointment | | 2012 | | [facility] [address] | DO [address] | | | | | [facility] | [place] | | | | | [place], [place] | [address] | | | | | [address] | | | | | | [phone] | | | +--------+ + + + [...] | | | | | | [place] [address] | | | | | | [phone] | | | | | | | | +--------+---------+ + + + | 01/01/ | Office | Cardiology | [place], | | | 2019 | Visit | | PARISA [place] [address] | | | | | | [place], | | | | | | [place] [address] | | | | | | [phone] | | | | | | | | +--------+---------+ + + + documented as of this encounter Visit Diagnoses Not on filedocumented in this encounter"
--- OUTSIDE RECORDS SUMMARY | ~2019-12-06 | XMS | Encounter Summary ---
Demographics + + + | Address | [address] [place] [address] [address] | | | [place] [address] | + + + | Home Phone [...] [place] | | | | | [address] | | + + + + + Care Team Providers + +------+ + | Care Jewel Supervisor Name | Role | Phone | [...] | | 2019 | | Center at [facility] [address] | [address] | | | | | [address] | [place], [place] | | | | | Mailcode: [place] | [address] | | | | | [facility] and | [phone] | | | | | [place] [address] | | | | | | [place], [place] | | | | | | [address] | | | | | | [phone] | | | +--------+ + + + [...]
--- OUTSIDE RECORDS SUMMARY | ~2019-12-06 | XMS | Encounter Summary ---
Demographics + + + | Address | [address] | | | [place] [address] | + + + | Home Phone [...] Team Providers + +------+ + | Care Gun Stocker Name | Role | Phone | + [...] | | | | | | [place] [address] | | | | | | [phone] | | | +--------+ + + + [...] | | | | | [place] [address] | | | | | | [phone] | | | | | | | | +--------+---------+ + + + | 01/01/ | Office | Cardiology | [place], | | | 2020 | Visit | | PARISA [place] [address] | | | | | | [place], | | | | | | [place] [address] | | | | | | [phone] | | | | | | | | +--------+---------+ + + + documented as of this encounter Visit Diagnoses Not on filedocumented in this encounter"
--- OUTSIDE RECORDS SUMMARY | ~2019-12-06 | XMS | Encounter Summary ---
Demographics + + + | Address | [address] | | | [place] [address] | + + + | Home Phone [...] Team Providers + +------+ + | Care Lung Puller Name | Role | Phone | + [...] | | | | [place] | [place] | | | | | [address] | [address] | | | | | [phone] | | | +--------+ + + + [...] | | | | | [place] [address] | | | | | | [phone] | | | | | | | | +--------+---------+ + + + | 01/01/ | Office | Cardiology | [place], | | | 2019 | Visit | | PARISA [place] [address] | | | | | | [place] | | | | | | [place] [address] | | | | | | [phone] | | | | | | | | +--------+---------+ + + + documented as of this encounter Visit Diagnoses Not on filedocumented in this encounter"
--- OUTSIDE RECORDS SUMMARY | ~2019-12-06 | XMS | Encounter Summary ---
Demographics + + + | Address | [address] | | | [place] [address] | + + + | Home Phone [...] +------+ + | Care Information Systems Security Developer Name | Role | Phone | + +------+ + PCP | Unavailable | + +------+ + Encounter Details +--------+ + + + + | Date | Type | Department | Care Team | Description | +--------+ + + + + | 02/01/ | [facility] | [facility] | Evan Gandara MD | | | 2008 - | Encounter | MED CTR MED ONC | [address] [facility] | | | | | [address] [place] | [place] | | | 02/06/ | | [place] [address] | [address] | | | 2008 | | [phone] | | | +--------+ + + + [...] | | | | | [place] [address] | | | | | | [phone] | | | | | | | | +--------+---------+ + + + | 01/01/ | Office | Cardiology | [place], | | | 2020 | Visit | | PARISA [place] [address] | | | | | | [place], | | | | | | [place] [address] | | | | | | [phone] | | | | | | | | +--------+---------+ + + + documented as of this encounter Visit Diagnoses Not on filedocumented in this encounter"
--- OUTSIDE RECORDS SUMMARY | ~2019-12-06 | XMS | Encounter Summary ---
Demographics + + + | Address | [address] | | | [place] [address] | + + + | Home Phone [...] Team Providers + +------+ + | Care Coupling Machine Operator Name | Role | Phone | + +------+ + | Kirk French MD | PCP | | + +------+ + Encounter Details +--------+ + + + + | Date | Type | Department | Care Team | Description | +--------+ + + + + | 10/25/ | Hospital | [facility] | Kirk French | Chronic pain | | 2017 | Encounter | MED CTR ULTRASOUND | MD Brea Eva LORA | disorder; Stomach | | | | [address] [place] | [address] | ache; Obesity, | | | | [place], [place] | [place] [address] | unspecified | | | | [address] | [phone] | classification, | | | | [phone] | | unspecified obesity | | | [...] + + + +---------+ + + | Russell-3 Fatty | CAPS, one capsule by | [...] | | | | | [place] [address] | | | | | | [phone] | | | | | | | | +--------+---------+ + + + | 01/01/ | Office | Cardiology | [place], | | | 2019 | Visit | | PARISA [place] [address] | | | | | | [place], | | | | | | [place] [address] | | | | | | [phone] | | | | | | | [...] + | Kalpesh Brown Results In - 10/25/2017 3:01 PM PST [...]
--- OUTSIDE RECORDS SUMMARY | ~2019-12-06 | XMS | Encounter Summary ---
Demographics + + + | Address | [address] | | | [place] [address] | + + + | Home Phone [...] Team Providers + +------+ + | Care Tracer Lathe Set Up Operator Name | Role | [...] | ER FUP | [address] | [address] | | | | | Procedures | [place], | [place], | | | | | [place] | [place] [address] | [place] [address] | | | | | | Phone: | Phone: | | | | | | [phone] | [phone] | | | | | | Fax: | Fax: | | | | | | [phone] | [phone] | +--------+--------+ + + + + Encounter Details +--------+---------+ + + + | Date | Type | Department | Care Team | Description | +--------+---------+ + + + | 02/11/ | Office | [facility] [place] | [place], | Coronary artery | | 2016 | Visit | CARDIOLOGY [address] | Janeen OPTICAL GOODS DRILLING MACHINE OPERATOR [address] | disease involving | | | | [place], | [place], | upper [place] coronary | | | | [place] [address] | [place] [address] | artery of upper [place] | | | | [phone] | [phone] | heart without angina | | | [...] of non-critical coronary artery d isease involving upper [place] coronary artery of upper [place] heart without angina pectoris, essential h ypertension, [...] has been doing well otherwise than the [facility] iety. MEDICAL, SURGICAL, AND PERSONAL HISTORY Past [...] Preventative health care Coronary artery disease involving upper [place] coronary artery of [place] heart without angina pectoris Cannabis abuse, daily [...] by mouth every evening 90 tablet 3 [facility] Natural Products (OSTEO BI-FLEX/5-LOXIN ADVANCED PO) Take [...] 3RD DOSE, CALL 911 100 tablet 3 [place]-3 Fatty Acids (SALMON OIL-1000 PO) CAPS, one capsule by mouth daily twice daily ONE TOUCH DELICA LANCETS [facility] Check glucose as needed for hypoglycemia 100 [...] was found Confirmed by ANGELA MARADIAGA MD ([id number]) on 01/25/2017 6:45:26 AM LAB RESULTS reviewed during visit today primarily from [facility]: LIPID Lab Results Component Value Date [...] PLTEX 162 11/05/2016 I reviewed records from [facility] for emergency department visit o n 01/2017 which is summarized in the HPI. Above data and testing is reviewed this visit; testing below is historical data unless othe rwise specified. ASSESSMENT: 1. Essential hypertension with goal blood pressure less than 130/80: A. Today it has been well controlled 110 mmHg. He is in class I of t he [place] Heart Ass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 On physical examination there are no signs of fluid overload. 2. Non-critical Coronary artery disease involving upper [place] coronary a rtery of [place] heart without angina pectoris: A. Normal exercise [...] to go back in 3 days to [place] for an attempt of ablation under [...] a normal stable device function. Estimated remaining [facility] longevity is 3.5 years.. 5. Lightheadedness [...] this chart may have been created with Closet[employer] voice recognition software. Occasi onal wrong-word or [...] | | | | | [place] [address] | | | | | | [phone] | | | | | | | | +--------+---------+ + + + | 01/01/ | Office | Cardiology | [place], | | | 2019 | Visit | | JaneenPARISA marks [address] | | | | | | [place], | | | | | | [place] [address] | | | | | | [phone] | | | | | | | | +--------+---------+ + + + documented as of this encounter Visit Diagnoses + + | Diagnosis | + + | Coronary artery disease involving upper [place] coronary artery of upper [place] heart without | | angina pectoris - Primary | + + | Essential hypertension with goal blood pressure less than 130/80 | + + | Hyperlipidemia, mixed Mixed hyperlipidemia | + + documented in this encounter
--- OUTSIDE RECORDS SUMMARY | ~2019-12-06 | XMS | Encounter Summary ---
Demographics + + + | Address | [address] | | | [place] [address] | + + + | Home Phone [...] Providers + +------+ + | Care Wood Flooring Specialist Name | Role | Phone | [...] | | | | [place] | | [address] Phone: | | | | | CYSTO/URETER | | [phone] | | | | | O | | Fax: | | | | | W/LITHOTRIPS | | [phone] | | | | | Y &INDWELL [...] | | | | | [address] | [place] | | | | | [place] | [address] | | | | | [address] | | | | | | [phone] | | | +--------+ + + + [...] +----+---+ + + | | 0 | Grant | | | | 8 | 43-degrees | | | | 2 | | | | | 7 | | | +----+---+ + + | | 0 | First | | | | 8 | Inc/Proc St | | | | 2 | | | | | 8 | | | +----+---+ + + | | 0 | Grant off | | | | 9 | [...] 04/13/19 1219 by | | eral | ukmp-xch-jddoxy catheter system; | Dominga Steen RN | [...] | | | | | [place] [address] | | | | | | [phone] | | | | | | | | +--------+---------+ + + + | 01/01/ | Office | Cardiology | [place], | | | 2019 | Visit | | PARISA [place] [address] | | | | | | [place] | | | | | | [place] [address] | | | | | | [phone] | | | | | | | [...] | | | | | CONTINUOUS, Starting [facility] 04/13/19 | | AM PDT | | | | | at 0700, TKO., Pre-op | | | | | | + +---------+ +---+---+---+ +---+---+ | | | +---+---+ + +-------+ +------+---+---+ | midazolam (VERSED) 1 mg/mL | Given | 04/13/20 | 2 mg | | | | injection Intravenous, PRN, | | 19 8:24 | | | | | Starting [facility] 04/13/19 at 0808, | | AM PDT [...]
--- OUTSIDE RECORDS SUMMARY | ~2019-12-06 | XMS | Encounter Summary ---
Demographics + + + | Address | [address] | | | [place] [address] | + + + | Home Phone [...] Providers + +------+ + | Care Vegetable Farmworker Name | Role | Phone | + [...] | | PVCs | PARISA [place] | [address] | | | | | Procedures | [address] | [address] | | | | | CT OFFICE | [place] | [place] | | | | | CONSULTATION | [place], | [address] Phone: | | | | | NEW/ESTAB | [place] | [phone] | | | | | PATIENT 40 | [address] | Fax: | | | | | MIN | Phone: | [phone] | | | | | | [phone] | | | | | | | Fax: | | | | | | | [phone] | | +--------+--------+ + + + + Encounter Details +--------+---------+ + + + | Date | Type | Department | Care Team | Description | +--------+---------+ + + + | 11/30/ | Office | [facility] | Jay Gambino MD | Symptomatic PVCs | | 2015 | Visit | [facility] [place] | [address] | (Primary Dx) | | | | HI[address] | [address] [place], | | | | | [facility] [address] [place] | [place] [address] | | | | | [address] | [phone] | | | | | [phone] | | | +--------+---------+ + + + [...] Gambino MD - 11/30/2014 5:37 PM PST [facility] [address] [place] [address] Patient Name: Moe Sanchez Date: 1960 Date [...] luz marcos as needed for Chest pain. [place]-3 Fatty Acids (SALMON OIL-1000 PO) CAPS, one [...] (1980 1984); Hypoglycemia; Drug addiction in remission ([facility]); HTN (hypertension); Hypercholesterolemia; Bipolar 1 [...] were not detected in the editing p ProFibrixess. Should you have any questions or concerns, [...] | | | | | | [place] [id number] | | | | | | [phone] | | | | | | | | +--------+---------+ + + + | 01/01/ | Office | Cardiology | [place], | | | 2019 | Visit | | PARISA Vernon [address] | | | | | | [place], | | | | | | [place] [address] | | | | | | [phone] | | | | | | | [...]
--- OUTSIDE RECORDS SUMMARY | ~2019-12-06 | XMS | Encounter Summary ---
Demographics + + + | Address | [address] | | | [place] [address] | + + + | Home Phone [...] Providers + +------+ + | Care Slot Tag Inserter Name | Role | Phone | [...] [address] | | | | | [place], | [place], | | | | | [place] [address] | [place] [address] | | | | | [phone] | [phone] | | | | | | | [...] | | | | | [place] [address] | | | | | | [phone] | | | | | | | | +--------+---------+ + + + | 01/01/ | Office | Cardiology | [place], | | | 2019 | Visit | | PARISA [place] [address] | | | | | | [place], | | | | | | [place] [address] | | | | | | [phone] | | | | | | | | +--------+---------+ + + + documented as of this encounter Visit Diagnoses Not on filedocumented in this encounter"
--- OUTSIDE RECORDS SUMMARY | ~2019-12-06 | XMS | Encounter Summary ---
Demographics + + + | Address | [address] | | | [place] [address] | + + + | Home Phone [...] Team Providers + +------+ + | Care Program Writer Name | Role | Phone | [...] + + | 01/03/ | Telephone | [facility] | Emmanuel Daniel MD | Results, Pathology | | 2018 | | GASTROENTEROLOGY | [address], [place] | (egd,colon) | | | | [address] | [address] [place], [place] | | | | | [address] [place], [place] | [address] | | | | | [address] | | | | | | [phone] | | | +--------+ + + + [...] | | | | | [place] [address] | | | | | | [phone] | | | | | | | | +--------+---------+ + + + | 01/01/ | Office | Cardiology | [place], | | | 2019 | Visit | | PARISA [place] [address] | | | | | | [place] | | | | | | [place] [address] | | | | | | [phone] | | | | | | | | +--------+---------+ + + + documented as of this encounter Visit Diagnoses Not on filedocumented in this encounter"
--- OUTSIDE RECORDS SUMMARY | ~2019-12-06 | XMS | Encounter Summary ---
Demographics + + + | Address | [address] | | | [place] [address] | + + + | Home Phone [...] Team Providers + +------+ + | Care Cocktail Waitress Name | Role | Phone | + [...] + | 07/01/ | Telephone | [facility] | Daljit Singletary, | Other (EKG) | | 2017 | | CARDIOLOGY [address] | MD [address] | | | | | [place], | [place], | | | | | [place] [address] | [place] [address] | | | | | [phone] | [phone] | | | | | | | [...] | | | | | [place] [address] | | | | | | [phone] | | | | | | | | +--------+---------+ + + + | 01/01/ | Office | Cardiology | [place], | | | 2019 | Visit | | PARISA [place] [address] | | | | | | [place] | | | | | | [place] [address] | | | | | | [phone] | | | | | | | | +--------+---------+ + + + documented as of this encounter Visit Diagnoses Not on filedocumented in this encounter"
--- OUTSIDE RECORDS SUMMARY | ~2019-12-06 | XMS | Encounter Summary ---
Demographics + + + | Address | [address] | | | [place] [address] | + + + | Home Phone [...] Providers + +------+ + | Care Ornamental Ironworking Supervisor Name | Role | Phone | [...] + + | 06/25/ | Office | [facility] | [place], | SINUS BRADYCARDIA | | 2013 | Visit | CARDIOLOGY [address] | PARISA [place] [address] | (Primary Dx); | | | | [place], | [place], | Symptomatic PVCs; | | | | [place] [address] | [place] [address] | Coronary artery | | | | [phone] | [phone] | disease; | | | | | [...] time, he was admitted over [facility] at [facility] for a chest pain. Aortogram [...] needed for Chest pain. 25 tablet 12 [place]-3 Fatty Acids (SALMON OIL-1000 PO) [...] HGBEX 16.1 01/25/2014 I reviewed records from [facility] for emergency department visit o [...] attenuation cannot completely be ruled out. D. [facility] 12/25/13, shows non critical coronary artery [...] yard. He is in class I-II of [place] Heart Association funct ional class. There are [...] to go back in 3 days to [place] for an attempt of ablation under general [...] dizziness. He is in class I-II of [place] Heart Ass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 There are no [...] made to ensure accuracy; however, inadvertent computerized property field inspector errors may be pre sent. Electronically signed [...] | | | | | | [place] [address] | | | | | | [phone] | | | | | | | | +--------+---------+ + + + | 01/01/ | Office | Cardiology | [place], | | | 2019 | Visit | | PARISA [place] [address] | | | | | | [place], | | | | | | [place] [address] | | | | | | [phone] | | | | | | | | +--------+---------+ + + + documented as of this encounter Visit Diagnoses + + | Diagnosis | + + | SINUS BRADYCARDIA - Primary Sinoatrial node dysfunction | + + | Symptomatic PVCs Other premature beats | + + | Coronary artery disease Coronary atherosclerosis of unspecified type of vessel, | | [place] or graft | + + | Hypertension Unspecified essential hypertension | + + | Syncope Syncope and collapse | + + | Hyperlipidemia Other and unspecified hyperlipidemia | + + documented in this encounter
--- OUTSIDE RECORDS SUMMARY | ~2019-12-06 | XMS | Encounter Summary ---
Demographics + + + | Address | [address] | | | [place] [address] | + + + | Home Phone [...] Team Providers + +------+ + | Care Frozen Meat Cutter Name | Role | Phone | [...] Refill | | 2013 | | [facility] [place] | DO [address] | | | | | [address] | [place] | | | | | [place] | [address] | | | | | [address] | | | | | | [phone] | | | +--------+--------+ + + + [...] | | | | | [place] [address] | | | | | | [phone] | | | | | | | | +--------+---------+ + + + | 01/01/ | Office | Cardiology | [place], | | | 2019 | Visit | | PARISA [place] [address] | | | | | | [place], | | | | | | [place] [address] | | | | | | [phone] | | | | | | | | +--------+---------+ + + + documented as of this encounter Visit Diagnoses Not on filedocumented in this encounter"
--- OUTSIDE RECORDS SUMMARY | ~2019-12-06 | XMS | Encounter Summary ---
Demographics + + + | Address | [address] | | | [place] [address] | + + + | Home Phone [...] Team Providers + +------+ + | Care Foil Stamp Operator Name | Role | Phone | [...] + + | 07/12/ | Office | [facility] | Michael Amanda, | Preventative health | | 2013 | Visit | MEDICINE [place] | DO [address] | care (Primary Dx); | | | | [address] | [place], [place] | Prostate cancer | | | | [place], [place] | [address] | screening; | | | | [address] | | Hypercholesterolemia | | | | [phone] | | ; Hypertension; | | | [...] clear cause was found. He has seen organ builder and has a rechec k plan. Possible [...] | | | | | | [place] [address] | | | | | | [phone] | | | | | | | | +--------+---------+ + + + | 01/01/ | Office | Cardiology | [place], | | | 2019 | Visit | | PARISA [place] [address] | | | | | | [place], | | | | | | [place] [address] | | | | | | [phone] | | | | | | | [...] - Primary Routine general medical examination at [facility] | | care facility | + [...]
--- OUTSIDE RECORDS SUMMARY | ~2019-12-06 | XMS | Encounter Summary ---
Demographics + + + | Address | [address] | | | [place] [address] | + + + | Home Phone [...] + +------+ + | Care Real Estate Loan Officer Name | Role | Phone | [...] | | | | Sinoatrial | Geri, GIS ANALYST | [address] | | | | | node | [address] | [place], | | | | | dysfunction | [place] | [place] | | | | | (HCC) | [place], [place] | [address] | | | | | Coronary | [address] | Phone: | | | | | artery | Phone: | [phone] | | | | | disease | [phone] | Fax: | | | | | involving | Fax: | [phone] | | | | | kaibab | [phone] | | | | | | coronary | | | | | | | artery of | | | | | | | kaibab heart | | | | | | [...] | | | | | | Complete [place] | | | | | | | ECHO HEART | | | | | | | XTHORACIC,[place] | | | | | | | MPLETE W | | | | | | | DOPPLER [place] | | | | | | [...] | Visit | CARDIOLOGY [address] | GIS ANALYST [address] | dysfunction (HCC) | | | | [address] [place], | [place], [place] | with symptomatic | | | | [place] [address] | [address] | bradycardia (Primary | | | | [phone] | | Dx); Coronary | | | | | | artery disease | | | | | | involving kaibab | | | | | | coronary artery of | | | | | | kaibab heart without | | | | | [...] Preventative health care Coronary artery disease involving kaibab coronary artery without angina pectoris Cannabis abuse, [...] 3rd dose, call 911 100 tablet 3 [place]-3 Fatty Acids (SALMON OIL-1000 PO) CAPS, one capsule by mouth daily twice daily ONE TOUCH DELICA LANC[place] [facility] [place] Check glucose as needed for hypoglycemia 100 [...] scanned Paceart documentation and device PDF in Qualvu for interrogation (with progr amming changes) performed [...] performed by Dr. Gambino at [facility] on 01/30/2013. Patient had spontaneous [...] to go back in 3 days to [place] for an attempt of ablation under general [...] dizziness. He is in class I-II of [place] 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 T here are [...] this chart may have been created with Votigo voice recognition software. Occasi onal wrong-word or [...] | | | | | [place] [address] | | | | | | [phone] | | | | | | | | +--------+---------+ + + + | 01/01/ | Office | Cardiology | Silvia, | | 2019 | Visit | | PARISA Vernon [address] | | | | | | [place], | | | | | | [place] [address] | | | | | | [phone] | | | | | | | [...] | | | TRANSTHORAC | | | [facility] | | | IC ECHO | | [...] VICTOR HUGO | [facility] | | [place] Room Number SARAH Patient | [facility] | | [id number] Date of Study 06/16/2016 Number | - IMAGING | | Visit Number [id number] | | | Referring Physician JOSE ARMANDO GARCIA Number Date of 1960 | | | Manager Machine LUIS FERNANDO DUARTE Age | | | 56 year(s) Interpreting | | | GURJIT [place] | | | Survey Workers Supervisor SYDNI CAGLE, | | | Gender | | | Male Nurse Procedure Type of Study TTE | | | procedure: ECHO Complete. Procedure dateDate: 06/16/2016Start: 10:55 | | | AM Technical Quality: Adequate visualizationStudy Location: Echo | | | LabIndications: CAD [place] CORONARY ARTERY 414.01/ I25.10 and | | [...] BARRY Room Number SARAH | | Patient [id number] Date of Study 06/16/2016 Number Visit Number | | [id number] Referring Physician JOSE ARMANDO GARCIA Number | | Date of 1960 Manager Machine LUIS FERNANDO DUARTE Age | | 56 year(s) Interpreting GURJIT [place] | | Survey Workers Supervisor SYDNI CAGLE, | | Gender Male NurseProcedureType of Study TTE | | procedure: ECHO Complete.Procedure dateDate: 06/16/2016Start: 10:55 AMTechnical Quality: | | Adequate visualizationStudy Location: Echo LabIndications: CAD [place] CORONARY ARTERY | | 414.01/ I25.10 and [...] [address] | [place] | [phone] | | [facility] | | [address] | | | - IMAGING | | | | + + + + + Device Interrogation (01/01/2016 4:41 PM PST) + + + | Narrative | Performed At | + + + | PARISA Velazquez 01/01/2016 16:41 PATIENT NAME: | PACEART | | Moe Sanchez : 1960: AGE: 55 | | | y.o. Device In-office Evaluation Report 12/31/2015 Reason | | | for evaluation: routine Indication for device: ICD-10-CM | | | ICD-9-CM 1. Sinoatrial node dysfunction (HCC) with symptomatic | | | bradycardia I49.5 427.81 ECHO Complete Device Interrogation | | | 2. Coronary artery disease involving kaibab coronary artery of | | | kaibab heart without angina pectoris I25.10 414.01 ECHO [...] + + | Coronary artery disease involving kaibab coronary artery of kaibab heart without | | angina pectoris | [...]
--- OUTSIDE RECORDS SUMMARY | ~2019-12-06 | XMS | Encounter Summary ---
Demographics + + + | Address | [address] | | | [place] [address] | + + + | Home Phone [...] Providers + +------+ + | Care Deputy Coroner Investigator Name | Role | Phone | [...] | Office | [facility] | Bahman Gant MD | Other dysphagia | | 2013 | Visit | OTOLARYNGOLOGY [address] | [address] [place] | (Primary Dx) | | | | [address] | [address] [place], | | | | | [place], [place] | [place] [address] | | | | | [address] | [phone] | | | | | [phone] | | | +--------+---------+ + + + [...] MD - 09/13/2013 5:46 PM PDTSee dictation #[id number] signed by Joseph Gant MD at 09/13/2013 5:52 PM Bahman Lamb MD - 09/13/2013 12:00 AM PDT ENT AND AUDIOLOGY [address] [facility] [address] [place] [address] FAX: [phone] OFFICE VISIT The patient gives a history [...] Gant MD GM / MS JOB #: [id number] signed by Bahman Gant MD at 09/14/2013 12:08 PM PDTdocumente d in this encounter Plan of Treatment +--------+---------+ + + + | Date | Type | Specialty | Care Team | Description | +--------+---------+ + + + | 12/18/ | Office | Gastroenterology | Darin Gandhi | | | 2019 | Visit | | MD Jacek [address] | | | | | | [address] | | | | | | [place] [address] | | | | | | [phone] | | | | | | | | +--------+---------+ + + + | 01/01/ | Office | Cardiology | Silvia, | | | 2019 | Visit | | PARISA Vernon [address] | | | | | | [place], | | | | | | [place] [address] | | | | | | [phone] | | | | | | | [...]
--- OUTSIDE RECORDS SUMMARY | ~2019-12-06 | XMS | Encounter Summary ---
Demographics + + + | Address | [address] | | | [place] [address] | + + + | Home Phone [...] Providers + +------+ + | Care Steam Locomotive Firer/Fireman Name | Role | Phone | + +------+ + | Kirk French MD | PCP | | + +------+ + Encounter Details +--------+ + + + + | Date | Type | Department | Care Team | Description | +--------+ + + + + | 01/05/ | Hospital | [facility] | Emmanuel Daniel MD | Functional diarrhea | | 2019 | Encounter | MED CTR MP INTRA OP | [address] [place], [place] | (Primary Dx); Weight | | | | [address] | [address] [place], [place] | loss | | | | [place], [place] | [address] | | | | | [address] | | | | | | [phone] | | | +--------+ + + + [...] for a few hours. Date Last Reviewed: 09/22/201619990063-6980 [employer]. [address] [place] [address], [place] [address]. All righ ts reserved. This information is [...] vomiting, or vomiting blood Date Last Reviewed: 05/22/201619996861-0397 [employer]. [address] [place] [address]. [address] [facility] ts reserved. This information is not intended [...] You can't be awakened Date Last Reviewed: 09/08/201619994356-8037 [employer]. [address] [place] [address], [place] [address]. All righ ts reserved. This information is [...] + + + +---------+ + + | [place]-3 Fatty | CAPS, one capsule by | [...] | | | | | [place] [address] | | | | | | [phone] | | | | | | | | +--------+---------+ + + + | 01/01/ | Office | Cardiology | Silvia, | | | 2019 | Visit | | PARISA Vernon [address] | | | | | | [place], | | | | | | [place] [address] | | | | | | [phone] | | | | | | | [...] + | Performed at: [address] [facility] [address], | REFERENCE LAB | | [facility] [place] [id number] Retort Furnace Helper: Miguel Galarza MD, Phone: | [facility] | | [phone] | | + + + + + + + + | Performing | Address | City/State/Zipcode | Phone Number | | Organization | | | | + + + + + | REFERENCE LAB | [address] | [place] [address] | [phone] | | [facility] | [address] | | | + [...] [address], | REFERENCE LAB | | [place], [place] [id number] Retort Furnace Helper: Miguel Galarza MD, Phone: | [facility] | | [phone] | | + + + + + + + + | Performing | Address | City/State/Zipcode | Phone Number | | Organization | | | | + + + + + | REFERENCE LAB | [address] | [place] [address] | [phone] | | [facility] | Drive [...] GUTIERREZ. | [address] | [place] | [phone] | | [facility] | | [address] | | | - LABORATORY | | [...] [address] | [place] | [phone] | | [facility] | | [address] | | | - LABORATORY | | [...] | | dium | | | [facility] | | | Antigen | | | [...] [address] | [place] | [phone] | | [facility] | | [address] | | | - LABORATORY | | [...] + | [facility] | [address] | [place] | [phone] | | [facility] | | [address] | | | - LABORATORY | | [...] | er, NAAT | | | [facility] | | | | | | MEDICAL [...] [address] | [place] | [phone] | | [facility] | | [address] | | | - LABORATORY | | [...] + | [facility] | [address] | [place] | [phone] | | [facility] | | [address] | | | - LABORATORY | | | | + + + + + EGD (01/05/2019 8:36 AM PST) + + | Specimen | + + | | + + + + -+ | Narrative | Performed At | + + -+ | | [facility] | | GastroenterologyPatient Name: Moe Venegas Date: | PROVATION | | 01/05/2019 8:36 AMMRN: [id number] #: [id number] of : | | | 9Admit Type: AmbulatoryAge: 58Room: [facility] 01Gender: MaleNote | | | Status: FinalizedAttending MD: Emmanuel Daniel , MDProcedure: | | | Upper GI endoscopyIndications: Diarrhea, Weight | | | lossProviders: Emmanuel Daniel MD, Heidi Mixon [place], | | | RN, Kim Hicks, Recreation Clerk, | | | Jarett Barakat MD [...] physician, the nurse, the anesthesiologist and the electrical technician | | | in the endoscopy [...] | | Imaging was performed using the [employer] | | | Endoscopy (FICE) [...] Scope In: 8:43:57 AMScope Out: 8:49:50 AM [facility]. | | | [facility], [address] [place] [address] | | | [phone] | | |Recommendation: | | | - [...] |Scope Out: 8:49:50 AM | | | [facility]. [facility], [address] [place] [address] | | | [address] | | + + -+ + +---------+ [...] | PROVATION | | 01/05/2019 8:36 AMMRN: [id number] #: [id number] of : | | | 9Admit Type: AmbulatoryAge: 58Room: [facility] 01Gender: MaleNote | | | Status: FinalizedAttending MD: Emmanuel Daniel [facility]cedure: | | | ColonoscopyIndications: Clinically significant diarrhea of | | | unexplained origin, Weight lossProviders: | | | Emmanuel Daniel MD, Heidi An RN, [place] | | | Fiorella Hicks, Recreation Clerk, Jarett Quezada. | | | MD [...] | | | the anesthesiologist and the electrical technician in the endoscopy suite. | | [...] AMScope Out: | | | 9:06:28 AM [facility], [address] [facility], | | | [place] [address] | | | - Discharge patient to [...] |Scope Out: 9:06:28 AM | | | [facility], [address] [place], [place] | | | [address] | | + + -+ + +---------+ + + | Performing | Address | City/State/[facility] Centercode | Phone Number | | Organization [...] | | | (atherosclerotic heart disease of [place] coronary artery without | | | angina [...] chronic or | | | microscopic colitis. BES:ssm health care:C3NR GROSS DESCRIPTION: A. The | | | specimen, labeled "[place], duodenal biopsy" is received in formalin | | | and consists of seven 0.1-0.5 cm lin fragments. Entirely submitted in | | | (A1). B. The specimen, labeled "[place], right colon" is received | | | in formalin and consists of six 0.2-0.3 cm lin fragments. Entirely | | | submitted in (B1). C. The specimen, labeled "[place], left colon" | | | is received in formalin and consists of six 0.2-0.3 cm lin-pink | | | fragments. Entirely submitted in (C1). am:AMB:portillo PERFORMING | | | LABORATORY: The technical component was performed by [facility] | | | [place] [address] (Affirmative Action Specialist: | | | Kailey Stafford MD; CLIA# [id number]). Professional interpretation was | | | performed by [facility] [place] [address] | | | [place] [address] (Affirmative Action Specialist: Ishaan | | | Anthony Dao; CLIA#: [id number]). Diagnostician: Ishaan Fitzpatrick | | | Sylwia [...] PRN, Wheezing, | | | Starting Talia 01/05/19 at 0924, | | | For [...]
--- OUTSIDE RECORDS SUMMARY | ~2019-12-06 | XMS | Encounter Summary ---
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, | | | | | [place] [address] | [place] [address] | | | | | [phone] | [phone] | | | | | | | [...] + + + +---------+ + + | [place]-3 Fatty | CAPS, one capsule by | [...] | | | | | [place] [address] | | | | | | [phone] | | | | | | | | +--------+---------+ + + + | 01/01/ | Office | Cardiology | Silvia, | | | 2019 | Visit | | PARISA Vernon [address] | | | | | | [place], | | | | | | [place] [address] | | | | | | [phone] | | | | | | | [...] Performed At | + + + | [facility] | NIANGUA | | Department [address] [place], [place] [address] [facility] | | [ rep [address]] [ rep [facility] | | st zip] Signed | - IMAGING | | | | | Patient Name: MEO GAY | | | Physician: MIGUELINA : 1960 Age: 53 Sex: M Unit | | | #: [id number] Exam Date: 12/25/13 Location: | | | [facility] SDS-D Report #: [id number] Page: | | | %(RAD)RES..mtdd.print.filter("pg") of %(RAD) | | | RES..mtdd.print.filter("tpg") | | | | | | Accession Number: [id number] | | | LEFT HEART CATHETERIZATION, 12/25/2013 [...] the patient was taken to the cardiac laborer demolition. She | | | was prepared and draped in the usual fashion. Under sterile | | | technique and local anesthesia, percutaneous access was obtained | | | using #5 [place] sheath in the right radial artery. Right heart cath | | | was not performed on this patient. Left ventriculography was | | | performed using #5 multipurpose diagnostic catheter. The selective | | | coronary angiography was then performed in several sagittal and | | | oblique projections using #5 multipurpose and #5 [place] JL 3.5 | | | diagnostic catheters. [...] Transcribed | | | Date/Time: 12/25/2013 11:52 Group Director Experience: | | | <<Signature on File>> | | | Daljit | | | MD CLEOPATRA Singletary FASNanette12/25/13 1343 <Electronically signed by | | | Daljit Singletary MD, [facility], [facility] [address], [place], [facility]> Daljit | | | MD CLEOPATRA Singletary [facility] H[facility]TS[facility]ENanette 12/25/13 1035 Group Director Experience: Webkaryx | | | Dxhypahcfcmrz52/03/14 1152 | | + + + + + + + + | Performing | Address | City/State/Zipcode | Phone Number | | Organization | | | | + + + + + | [facility] | [address] | [place] | [phone] | | [facility] | | [address] | | | - IMAGING | | | | + + + + + documented in this encounter Visit Diagnoses Not on filedocumented in this encounter
--- OUTSIDE RECORDS SUMMARY | ~2019-12-06 | XMS | Encounter Summary ---
Demographics + + + | Address | [address] | | | [place] [address] | + + + | Home Phone [...] Team Providers + +------+ + | Care Interior Design Coordinator Name | Role | Phone | + +------+ + | Michael Amanda DO | PCP | | + +------+ + Encounter Details +--------+ + + + + | Date | Type | Department | Care Team | Description | +--------+ + + + + | 02/27/ | Hospital | [facility] | Shelly Carter DO | Chest pain; | | 2013 - | Encounter | [facility] | [address] | Pacemaker; | | | | CLINICAL DECISION | [place] [address] | Mild dehydration | | 02/28/ | | [address] [facility] | [phone] | | | 2013 | | [place], [place] | | | | | | [address] | | | | | | [phone] | | | +--------+ + + + [...] 2252 Date of Service: 02/28/141044 Status: Addendum Assistant Financial Accountant: Dev Montano MD (Physician) Related Notes: Original Note by Dev Montano MD (Physician) filed at 02/28/14 1107 Patient ID: Pina Gay [id number] y.o. 1960 Admit date: 02/27/2014 Discharge [...] - 99 mg/dL Final Testing performed at [address] [address] BUN Date Value Range Status 02/28/2014 15 8 - 25 mg/dL Final Testing performed at [address] [address] CREATININE Date Value Range Status 02/28/2014 0.74 0.70 - 1.30 mg/dL Final Testing performed at [address] [address] BUN/CREAT Date Value Range Status 02/28/2014 20 Final Testing performed at [address] [address] TOTAL PROTEIN Date Value Range Status 02/28/2014 6.1* 6.3 - 8.2 g/dL Final Testing performed at [address] [address] GLOBULIN Date Value Range Status 02/28/2014 2.1 1.3 - 4.9 g/dL Final Testing performed at [address] [address] TBIL Date Value Range Status 02/28/2014 1.4 0.1 - 1.5 mg/dL Final Testing performed at [address] [address] ALT Date Value Range Status 02/28/2014 27 10 - 65 U/L Final Testing performed at [address] [address] AST Date Value Range Status 02/28/2014 31 10 - 45 U/L Final Testing performed at [address] [address] SODIUM Date Value Range Status 02/28/2014 138 135 - 143 mmol/L Final Testing performed at [facility], [address] [place] [address] POTASSIUM Date Value Range Status 02/28/2014 3.4* 3.5 - 4.9 mmol/L Final Testing performed at [facility], [address] [place] [address] CHLORIDE Date Value Range Status 02/28/2014 108 99 - 109 mmol/L Final Testing performed at [address] [address] CO2 Date Value Range Status 02/28/2014 21* 23 - 32 mmol/L Final Testing performed at [facility], [address] [place] [address] ANION GAP AGAP Date Value Range Status 02/28/2014 12 5 - 20 mmol/L Final Testing performed at [facility], [address] [place] [address] Xr Chest Pa And Lateral 02/27/2014 PINA [...] 3-D reconstructi ons were performed using the TrackMaven 3-D software and sent to PACS. Oral Contrast: None I V contrast: 100 mL IsoVue 370 COMPARISON: None. 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 Singletary in [place] in December 2013 at [facility] which showed minimal occlusive disease. One artery was 25% and another was 15%, per patient. I requested official cardiac catheterization report from [place] and still waiting for it to come. 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 You may get these medications from any pharmacy. amLODIPine 5 MG tablet pantoprazole 40 MG tablet Activity: activity as tolerated Diet: cardiac diet Wound Care: not applicable There are no Patient Instructions on file for this visit. Per Pt None Chaka Ortiz MD [address] [facility] [id number] In 1 week Ariel Pulido MD [address] [facility] [phone] In 1 week Daljit Singletary MD [address] [facility] [address] [facility] [address] In 1 week Signed: DEV MONTANO 02/28/2014 10:45 AM Addendum:ADDENDUM I just received a cardiac catheterization report from [facility], [place], which was done on December 25, 2013. [...] + + + +---------+ + + | Willard-3 Fatty | CAPS, one capsule by | [...] from the original. Nurse Progress Note by Bjial Sosa RN at 02/28/141210 Author: Bijal Sosa RN Service: (none) Author Type: Registered Nurse Filed: 02/28/141211 Date of Service: 02/28/141210 Status: Signed Assistant Financial Accountant: Bijal Sosa RN (Registered Nurse) Discharge instructions [...] 02/28/1411 Date of Service: 02/28/1411 Status: Signed Assistant Financial Accountant: Mary Wetzel RPH (Pharmacist) Clinical Pharmacy Note: [...] | | | | | [place] [address] | | | | | | [phone] | | | | | | | | +--------+---------+ + + + | 01/01/ | Office | Cardiology | Silvia, | | | 2019 | Visit | | PARISA [place] [address] | | | | | | [place] | | | | | | [place] [address] | | | | | | [phone] | | | | | | | [...] | | | | performed at [facility];[address] | | LAB | | | | [address] [facility];[place], [place] | | | | | | [address] | | | | + + + [...] | | | | | | ACUTE [place] Testing | | | | | | performed at [facility];[address] | | | | | | [address] [facility];[place], [place] | | | | | | [address] | | | | + + + [...] EXTERNAL | | | | performed at [facility], [address] | | LAB | | | | [address], | | | | | | [place] [address] | | | | + + + + + + | RED CELL | 4.68Comment: Testing | 4.20 - 5.70 | EXTERNAL | | | COUNT | performed at [facility], [address] | M/uL | LAB | | | | [address], | | | | | | [place] [address] | | | | + + + + + + | Hgb | 15.3Comment: Testing | 13.2 - 17.0 | EXTERNAL | | | | performed at [facility], [address] | g/dL | LAB | | | | [address], | | | | | | [place] [address] | | | | + + + + + + | Hematocrit, | 44.2Comment: Testing | 39.0 - 50.0 % | EXTERNAL | | | POC | performed at [facility], [address] | | LAB | | | | [address], | | | | | | [place] [address] | | | | + + + + + + | MCV | 94.5Comment: Testing | 80.0 - 100.0 fl | EXTERNAL | | | | performed at [facility], [address] | | LAB | | | | [address], | | | | | | [place] [address] | | | | + + + + + + | MCH | 32.6Comment: Testing | 27.0 - 34.0 pg | EXTERNAL | | | | performed at [facility], [address] | | LAB | | | | [address], | | | | | | [place] [address] | | | | + + + + + + | MCHC | 34.5Comment: Testing | 32.0 - 35.5 | EXTERNAL | | | | performed at [facility], [address] | g/dL | LAB | | | | [address], | | | | | | [place] [address] | | | | + + + + + + | RDW-CV | 45.5Comment: Testing | 37 - 53 fl | EXTERNAL | | | | performed at [facility], [address] | | LAB | | | | [address], | | | | | | [place] [address] | | | | + + + + + + | Platelet | 156Comment: Testing | 150 - 400 K/uL | EXTERNAL | | | Count | performed at [facility], [address] | | LAB | | | Plasma | [address], | | | | | | [place] [address] | | | | + + + + + + | MPV | 8.8Comment: Testing | fl | EXTERNAL | | | | performed at [facility], [address] | | LAB | | | | [address], | | | | | | [place] [address] | | | | + + + + + + | Differentia | AUTOMATEDComment: | | EXTERNAL | | | l Type | Testing performed at | | LAB | | | | [facility], [address], [place], [place] | | | | | | [address] | | | | + + + + + + | % Segmented | 57.7Comment: Testing | % | EXTERNAL | | | | performed at [facility], [address] | | LAB | | | Neutrophils | [address], | | | | | | [place] [address] | | | | + + + + + + | % | 31.8Comment: Testing | % | EXTERNAL | | | Lymphocytes | performed at [facility], [address] | | LAB | | | | [address], | | | | | | [place] [address] | | | | + + + + + + | % Monocytes | 9.2Comment: Testing | % | EXTERNAL | | | | performed at [facility], [address] | | LAB | | | | [address], | | | | | | [place] [address] | | | | + + + + + + | % | 0.9Comment: Testing | % | EXTERNAL | | | Eosinophils | performed at [facility], [address] | | LAB | | | | [address], | | | | | | [place] [address] | | | | + + + + + + | % Basophils | 0.4Comment: Testing | % | EXTERNAL | | | | performed at [facility], [address] | | LAB | | | | [address], | | | | | | [place] [address] | | | | + + + + + + | Absolute | 3.9Comment: Testing | 1.9 - 7.4 K/uL | EXTERNAL | | | Segmented | performed at [facility], [address] | | LAB | | | Neutrophils | [address], | | | | | | [place] [address] | | | | + + + + + + | Absolute | 2.1Comment: Testing | 1.0 - 3.9 K/uL | EXTERNAL | | | Lymphocytes | performed at [facility], [address] | | LAB | | | | [address], | | | | | | [place] [address] | | | | + + + + + + | Absolute | 0.6Comment: Testing | 0 - 0.8 K/uL | EXTERNAL | | | Monocytes | performed at [facility], [address] | | LAB | | | | [address], | | | | | | [place] [address] | | | | + + + + + + | Absolute | 0.1Comment: Testing | 0 - 0.5 K/uL | EXTERNAL | | | Eosinophils | performed at [facility], [address] | | LAB | | | | [address], | | | | | | [place] [address] | | | | + + + + + + | Absolute | 0.0Comment: Testing | 0 - 0.1 K/uL | EXTERNAL | | | Basophils | performed at [facility], [address] | | LAB | | | | [address], | | | | | | [place] [address] | | | | + + + [...] EXTERNAL | | | | performed at [facility], [address] | | LAB | | | | [address] [facility], | | | | | | [place] [address] | | | | + + + [...] EXTERNAL | | | | performed at [facility], [address] | | LAB | | | | [address], | | | | | | [place] [address] | | | | + + + [...] | | | | performed at [facility];[address] | | LAB | | | | [address];[place] | | | | | | [address] | | | | + + + [...] | | | | | [place] [address] | | | | + + + + + + | Triglycerid | 37Comment: Testing | mg/dL | EXTERNAL | | | es | performed at [facility], [address] | | LAB | | | | [address], | | | | | | [place] [address] | | | | + + + + + + | HDL | 35 (L)Comment: Testing | mg/dL | EXTERNAL | | | | performed at [facility], [address] | | LAB | | | | [address], | | | | | | [place] [address] | | | | + + + + + + | LDL | 67Comment: Testing | mg/dL | EXTERNAL | | | Cholesterol | performed at [facility], [address] | | LAB | | | , | [address], | | | | | Calculated, | [place] [address] | | | | | External | [...] | | | | | [place] [address] | | | | + + + + + + | K | 3.4 (L)Comment: Testing | 3.5 - 4.9 | EXTERNAL | | | | performed at [facility], [address] | mmol/L | LAB | | | | [address], | | | | | | [place] [address] | | | | + + + + + + | Cl | 108Comment: Testing | 99 - 109 mmol/L | EXTERNAL | | | | performed at [facility], [address] | | LAB | | | | [address], | | | | | | [place] [address] | | | | + + + + + + | CO2 | 21 (L)Comment: Testing | 23 - 32 mmol/L | EXTERNAL | | | | performed at [facility], [address] | | LAB | | | | [address], | | | | | | [place], [place] [address] | | | | + + + + + + | Anion Gap | 12Comment: Testing | 5 - 20 mmol/L | EXTERNAL | | | | performed at [facility], [address] | | LAB | | | | [address], | | | | | | [place], [place] [address] | | | | + + + + + + | Glucose, | 107 (H)Comment: Testing | 65 - 99 mg/dL | EXTERNAL | | | Fasting | performed at [facility], [address] | | LAB | | | | [address], | | | | | | [place] [address] | | | | + + + + + + | BUN | 15Comment: Testing | 8 - 25 mg/dL | EXTERNAL | | | | performed at [facility], [address] | | LAB | | | | [address], | | | | | | [place] [address] | | | | + + + + + + | Creatinine | 0.74Comment: Testing | 0.70 - 1.30 | EXTERNAL | | | | performed at [facility], [address] | mg/dL | LAB | | | | [address], | | | | | | [place] [address] | | | | + + + + + + | BUN/Creatin | 20Comment: Testing | | EXTERNAL | | | ine Ratio | performed at [facility], [address] | | LAB | | | | [address], | | | | | | [place] [address] | | | | + + + + + + | Calcium | 8.9Comment: Testing | 8.5 - 10.2 | EXTERNAL | | | | performed at [facility], [address] | mg/dL | LAB | | | | [address], | | | | | | [place] [address] | | | | + + + + + + | Protein, | 6.1 (L)Comment: Testing | 6.3 - 8.2 g/dL | EXTERNAL | | | Total | performed at [facility], [address] | | LAB | | | | [address], | | | | | | [place] [address] | | | | + + + + + + | Albumin | 4.0Comment: Testing | 3.6 - 5.0 g/dL | EXTERNAL | | | | performed at [facility], [address] | | LAB | | | | [address], | | | | | | [place] [address] | | | | + + + + + + | Globulin | 2.1Comment: Testing | 1.3 - 4.9 g/dL | EXTERNAL | | | | performed at [facility], [address] | | LAB | | | | [address], | | | | | | [place] [address] | | | | + + + + + + | A/G Ratio | 1.9Comment: Testing | 1.0 - 2.4 | EXTERNAL | | | | performed at [facility], [address] | | LAB | | | | [address], | | | | | | [place] [address] | | | | + + + + + + | Bilirubin | 1.4Comment: Testing | 0.1 - 1.5 mg/dL | EXTERNAL | | | Total | performed at [facility], [address] | | LAB | | | | [address], | | | | | | [place] [address] | | | | + + + + + + | ALP, | 46Comment: Testing | 35 - 115 U/L | EXTERNAL | | | External | performed at [facility], [address] | | LAB | | | | [address], | | | | | | [place] [address] | | | | + + + + + + | AST | 31Comment: Testing | 10 - 45 U/L | EXTERNAL | | | | performed at [facility], [address] | | LAB | | | | [address], | | | | | | [place] [address] | | | | + + + + + + | ALT | 27Comment: Testing | 10 - 65 U/L | EXTERNAL | | | | performed at [facility], [address] | | LAB | | | | [facility], | | | | | | [place] [address] | | | | + + + [...] | | | | | | at [facility], [address] | | | | | | [facility] | | | | | | [place] [address] | | | | + + + [...] + + | Historically converted procedure from [facility] | EXTERNAL LAB | + + + [...] | | | | performed at [facility];[address] | | LAB | | | | [address];[place], [place] | | | | | | [address] | | | | + + + [...] | | | | | | ACUTE [place] Testing | | | | | | performed at [facility];[address] | | | | | | [address];[place], [place] | | | | | | [address] | | | | + + + [...] | | | | performed at [facility];[address] | | LAB | | | | [address];[place] | | | | | | [address] | | | | + + + [...] were | | | performed using the TrackMaven 3-D software and sent to PACS. Oral | | | Contrast: None IV contrast: 100 mL IsoVue 370 COMPARISON: None. 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 Oral Contrast: NoneIV contrast: 100 | | mL IsoVue 370 COMPARISON:None. 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 shows a pacemaker via | | [...] | | | | performed at [facility];[address] | | LAB | | | | [address];[place] | | | | | | [address] | | | | + + + + + -+ | RED CELL | 5.19Comment: Testing | 4.20 - 5.70 | EXTERNAL | | | COUNT | performed at [facility];[address] | M/uL | LAB | | | | [address];[place] | | | | | | [address] | | | | + + + + + -+ | Hgb | 16.8Comment: Testing | 13.2 - 17.0 | EXTERNAL | | | | performed at [facility];[address] | g/dL | LAB | | | | [address];[place] | | | | | | [address] | | | | + + + + + -+ | Hematocrit, | 49.5Comment: Testing | 39.0 - 50.0 % | EXTERNAL | | | POC | performed at [facility];[address] | | LAB | | | | [address];[place] | | | | | | [address] | | | | + + + + + -+ | MCV | 95.4Comment: Testing | 80.0 - 100.0 fl | EXTERNAL | | | | performed at [facility];[address] | | LAB | | | | [address];[place] | | | | | | [address] | | | | + + + + + -+ | MCH | 32.4Comment: Testing | 27.0 - 34.0 pg | EXTERNAL | | | | performed at [facility];[address] | | LAB | | | | [address];[place] | | | | | | [address] | | | | + + + + + -+ | MCHC | 34.0Comment: Testing | 32.0 - 35.5 | EXTERNAL | | | | performed at [facility];[address] | g/dL | LAB | | | | [address];[place] | | | | | | [address] | | | | + + + + + -+ | RDW-CV | 46.8Comment: Testing | 37 - 53 fl | EXTERNAL | | | | performed at [facility];[address] | | LAB | | | | [address];[place] | | | | | | [address] | | | | + + + + + -+ | Platelet | 179Comment: Testing | 150 - 400 K/uL | EXTERNAL | | | Count | performed at [facility];[address] | | LAB | | | Plasma | [address];[place] | | | | | | [address] | | | | + + + + + -+ | MPV | 8.6Comment: Testing | fl | EXTERNAL | | | | performed at [facility];[address] | | LAB | | | | [address];[place] | | | | | | [address] | | | | + + + + + -+ | Differentia | AUTOMATEDComment: | | EXTERNAL | | | l Type | Testing performed at | | LAB | | | | [facility];[address];[place] [address] | | | | + + + + + -+ | % Segmented | 62.4Comment: Testing | % | EXTERNAL | | | | performed at [facility];[address] | | LAB | | | Neutrophils | [address];[place] | | | | | | [address] | | | | + + + + + -+ | % | 26.3Comment: Testing | % | EXTERNAL | | | Lymphocytes | performed at [facility];[address] | | LAB | | | | [address];[place] | | | | | | [address] | | | | + + + + + -+ | % Monocytes | 10.3Comment: Testing | % | EXTERNAL | | | | performed at [facility];[address] | | LAB | | | | [address];[place] | | | | | | [address] | | | | + + + + + -+ | % | 0.5Comment: Testing | % | EXTERNAL | | | Eosinophils | performed at [facility];[address] | | LAB | | | | [address];[place] | | | | | | [address] | | | | + + + + + -+ | % Basophils | 0.5Comment: Testing | % | EXTERNAL | | | | performed at [facility];[address] | | LAB | | | | [address];[place] | | | | | | [address] | | | | + + + + + -+ | Absolute | 6.3Comment: Testing | 1.9 - 7.4 K/uL | EXTERNAL | | | Segmented | performed at [facility];[address] | | LAB | | | Neutrophils | [address];[place] | | | | | | [address] | | | | + + + + + -+ | Absolute | 2.7Comment: Testing | 1.0 - 3.9 K/uL | EXTERNAL | | | Lymphocytes | performed at [facility];[address] | | LAB | | | | [address];[place] | | | | | | [address] | | | | + + + + + -+ | Absolute | 1.0 (H)Comment: Testing | 0 - 0.8 K/uL | EXTERNAL | | | Monocytes | performed at [facility];[address] | | LAB | | | | [address];[place] | | | | | | [address] | | | | + + + + + -+ | Absolute | 0.0Comment: Testing | 0 - 0.5 K/uL | EXTERNAL | | | Eosinophils | performed at [facility];[address] | | LAB | | | | [address];[place] | | | | | | [address] | | | | + + + + + -+ | Absolute | 0.1Comment: Testing | 0 - 0.1 K/uL | EXTERNAL | | | Basophils | performed at [facility];[address] | | LAB | | | | [address];[place] | | | | | | [address] | | | | + + + + + -+ | Na | 139Comment: Testing | 135 - 143 | EXTERNAL | | | | performed at [facility];[address] | mmol/L | LAB | | | | [address];[place] | | | | | | [address] | | | | + + + + + -+ | K | 3.4 (L)Comment: Testing | 3.5 - 4.9 | EXTERNAL | | | | performed at [facility];[address] | mmol/L | LAB | | | | [address];[place] | | | | | | [address] | | | | + + + + + -+ | Cl | 108Comment: Testing | 99 - 109 mmol/L | EXTERNAL | | | | performed at [facility];[address] | | LAB | | | | [address];[place] | | | | | | [address] | | | | + + + + + -+ | CO2 | 21 (L)Comment: Testing | 23 - 32 mmol/L | EXTERNAL | | | | performed at [facility];[address] | | LAB | | | | [address];[place] | | | | | | [address] | | | | + + + + + -+ | Anion Gap | 14Comment: Testing | 5 - 20 mmol/L | EXTERNAL | | | | performed at [facility];[address] | | LAB | | | | [address];[place] | | | | | | [address] | | | | + + + + + -+ | Glucose, | 124 (H)Comment: Testing | 65 - 99 mg/dL | EXTERNAL | | | Fasting | performed at [facility];[address] | | LAB | | | | [address];[place] | | | | | | [address] | | | | + + + + + -+ | BUN | 20Comment: Testing | 8 - 25 mg/dL | EXTERNAL | | | | performed at [facility];[address] | | LAB | | | | [address];[place] | | | | | | [address] | | | | + + + + + -+ | Creatinine | 0.97Comment: Testing | 0.70 - 1.30 | EXTERNAL | | | | performed at [facility];[address] | mg/dL | LAB | | | | [address];[place] | | | | | | [address] | | | | + + + + + -+ | BUN/Creatin | 21Comment: Testing | | EXTERNAL | | | ine Ratio | performed at [facility];[address] | | LAB | | | | [address];[place] | | | | | | [address] | | | | + + + + + -+ | Calcium | 8.7Comment: Testing | 8.5 - 10.2 | EXTERNAL | | | | performed at [facility];[address] | mg/dL | LAB | | | | [address];[place] | | | | | | [address] | | | | + + + + + -+ | Protein, | 7.6Comment: Testing | 6.3 - 8.2 g/dL | EXTERNAL | | | Total | performed at [facility];[address] | | LAB | | | | [address];[place] | | | | | | [address] | | | | + + + + + -+ | Albumin | 4.2Comment: Testing | 3.6 - 5.0 g/dL | EXTERNAL | | | | performed at [facility];[address] | | LAB | | | | [address];[place] | | | | | | [address] | | | | + + + + + -+ | Globulin | 3.4Comment: Testing | 1.3 - 4.9 g/dL | EXTERNAL | | | | performed at [facility];[address] | | LAB | | | | [address];[place] | | | | | | [address] | | | | + + + + + -+ | A/G Ratio | 1.2Comment: Testing | 1.0 - 2.4 | EXTERNAL | | | | performed at [facility];[address] | | LAB | | | | [address];[place] | | | | | | [address] | | | | + + + + + -+ | Bilirubin | 1.1Comment: Testing | 0.1 - 1.5 mg/dL | EXTERNAL | | | Total | performed at [facility];[address] | | LAB | | | | [address];[place] | | | | | | [address] | | | | + + + + + -+ | ALP, | 77Comment: Testing | 35 - 115 U/L | EXTERNAL | | | External | performed at [facility];[address] | | LAB | | | [address];[place] | | | | | | [address] | | | | + + + + + -+ | AST | 35Comment: Testing | 10 - 45 U/L | EXTERNAL | | | | performed at [facility];[address] | | LAB | | | [address];[place] | | | | | | [address] | | | | + + + + + -+ | ALT | 43Comment: Testing | 10 - 65 U/L | EXTERNAL | | | | performed at [facility];[address] | | LAB | | | [address];[place] | | | | | | [address] | | | | + + + [...] | | | | | at [facility];[address];[place] [id number] | | | | + + + + + -+ | CK, Total | 510 (H)Comment: Testing | 55 - 400 U/L | EXTERNAL | | | | performed at [facility];[address] | | LAB | | | | [facility] | | | | | | [address] | | | | + + + [...] | | | | performed at [facility];[address] | | | | | | [facility] | | | | | | [address] | | | | + + + + + -+ | aPTT, | 24Comment: Testing | 23 - 32 seconds | EXTERNAL | | | Patient | performed at [facility];[address] | | LAB | | | [address];[place] | | | | | | [address] | | | | + + + + + -+ | CK-MB | 9.3 (H)Comment: Testing | 0.5 - 3.6 ng/mL | EXTERNAL | | | | performed at [facility];[address] | | LAB | | | [address];[place] | | | | | | [address] | | | | + + + [...] | | | | performed at [facility];[address] | uIU/mL | LAB | | | | [address];[place], [place] | | | | | | [address] | | | | + + + [...] | | | | performed at [facility] | | LAB | | | | [address];[place] | | | | | | [address] | | | | + + + [...] | | | | | | editor news TERESE NINA (2) | | | | [...]
--- OUTSIDE RECORDS SUMMARY | ~2019-12-06 | XMS | Encounter Summary ---
Demographics + + + | Address | [address] | | | [place] [address] | + + + | Home Phone [...] Team Providers + +------+ + | Care Powder Mill Operator Name | Role | Phone | + +------+ + | Michael Amanda DO | PCP | | + +------+ + Encounter Details +--------+ + + + + | Date | Type | Department | Care Team | Description | +--------+ + + + + | 01/30/ | Hospital | [facility] | Jay Gambino MD | | | 2012 - | Encounter | [facility] | [address] | | | | | CARDIAC TELEMETRY | [address] [place], | | | 01/31/ | | [address] | [place] [address] | | | 2012 | | [place] | [phone] | | | | | [address] | | | | | | [phone] | | | +--------+ + + + [...] 1960 ADMISSION DATE: 01/30/2013 DISCHARGE DATE: 01/31/2013 [id number] / [id number] ADMITTING DIAGNOSES: 1. Symptomatic PVCs. 2. Sinus [...] 150, 1 to 2 tabs daily. 10. [place]-3 fatty acids 1000 mg b.i.d. MOE GAY ADM:01/30/13 [id number] 01/31/13 DIS [place] DISCHARGE SUMMARY [id number] [facility] Carmela Cuevas PAC B [facility] MD Meena Pleitez THIS REPORT IS CONFIDENTIAL AND NOT TO BE RELEASED WITHOUT PROPER AUTHORIZATION. [facility] 11. Valacyclovir 500 mg daily. B. New medication added: Diltiazem CD 180 a day. FOLLOWUP: The patient has a followup appointment on 03/02/2013 at 10:[address] Niles meza at the [facility], [address]. No heavy lifting or driving times 48 hours. YOANA Barlow MD A [facility] [place][id number] cc: MD Carmela Pleitez PA-C Electronically Signed 02/06/13 1616 LAKESHIA Barlow Electronically Signed 02/20/13 0731 Jay Gambino MD MOE GAY ADM:01/30/13 [id number] 01/31/13 DIS [place] DISCHARGE SUMMARY [id number] [facility] LAKESHIA Barlow B [facility] Jay Gambino MD R THIS REPORT IS CONFIDENTIAL AND NOT TO BE RELEASED WITHOUT PROPER AUTHORIZATION.Electronica lly signed by Jael Brown at 02/20/2013 7:31 AM FRANCYZzCarmela Moncada - 02/01/20 13 8:44 AM PDT PATIENT NAME: MOE GAY Sex/Age: M / 52Y : 1960 ADMISSION DATE: 01/30/2013 DISCHARGE DATE: 01/31/2013 [id number] / [id number] ADMITTING DIAGNOSES: 1. Symptomatic PVCs. 2. Sinus [...] 150, 1 to 2 tabs daily. 10. [place]-3 fatty acids 1000 mg b.i.d. MOE GAY ADM:01/30/13 [id number] 01/31/13 DIS [place] DISCHARGE SUMMARY [id number] [facility] LAKESHIA Barlow B [facility] MD Meena Pleitez THIS REPORT IS CONFIDENTIAL AND NOT TO BE RELEASED WITHOUT PROPER AUTHORIZATION. [facility] 11. Valacyclovir 500 mg daily. B. New medication added: Diltiazem CD 180 a day. FOLLOWUP: The patient has a followup appointment on 03/02/2013 at 10:[address] Niles meza at the [facility], [address]. No heavy lifting or driving times 48 hours. YOANA Barlow MD [facility] #[id number] cc: MD Carmela Pleitez PA-C Electronically Signed 02/06/13 1616 LAKESHIA Barlow MOE GAY ADM:01/30/13 [id number] 01/31/13 DIS [place] DISCHARGE SUMMARY [id number] [facility] LAKESHIA Barlow ES B [facility] Jay Gambino MD R THIS [...] + + + +---------+ + + | Conroe-3 Fatty | CAPS, one capsule by | [...] | | | | | [place] [address] | | | | | | [phone] | | | | | | | | +--------+---------+ + + + | 01/01/ | Office | Cardiology | [place]via, | | | 2020 | Visit | | PARISA [place] [address] | | | | | | [place], | | | | | | [place] [address] | | | | | | [phone] | | | | | | | [...] + | [facility] | [address] [facility]. | [place] [address] | | | [facility] | [...] + + | YESSY JONES | [address] | [place] [address] | | | [facility] | | | | | LABORATORY | | | | + + + + + | YESSY JONES | | | | | [facility] | | | | | [...] + + | Glucose | 113 (H)Comment: Palestinian | 65 - 99 mg/dL | [facility] | | | | Diabetes Association | [...] + + | YESSY JONES | [address] | [place] [address] | | | [facility] | | | | | LABORATORY | | | | + + + + + | YESSY JONES | | | | | [facility] | | | | | LABORATORY | | | | + + + + + documented in this encounter Visit Diagnoses Not on filedocumented in this encounter"
--- OUTSIDE RECORDS SUMMARY | ~2019-12-06 | XMS | Encounter Summary ---
Demographics + + + | Address | [address] | | | [place] [address] | + + + | Home Phone [...] Team Providers + +------+ + | Care Rotoformer Backtender Name | Role | Phone | + [...] [address] | | | | | [address] | [place] | | | | | [phone] | [address] | | | | | | [phone] | | | | | | | [...] | | | | | | [place] [address] | | | | | | [phone] | | | | | | | | +--------+---------+ + + + | 01/01/ | Office | Cardiology | Silvia, | | | 2019 | Visit | | PARISA [place] [address] | | | | | | [place], | | | | | | [place] [address] | | | | | | [phone] | | | | | | | [...]
--- OUTSIDE RECORDS SUMMARY | ~2019-12-06 | XMS | Encounter Summary ---
Demographics + + + | Address | [address] | | | [place] [address] | + + + | Home Phone [...] Team Providers + +------+ + | Care Company Manager Name | Role | Phone | [...] + + | 11/03/ | Refill | [facility] | Kirk French | Medication Refill | | 2019 | | [facility] | MD Bre[address] | | | | | PRIMARY CARE [address] | [address] | | | | | [address] | [place] [address] | | | | | [place], [place] | [phone] | | | | | [address] | | | | | | [phone] | | | +--------+--------+ + + + [...] 12/18/ | Office | Gastroenterology | Darin Gadnhi | | | 2019 | Visit | | MD Jacek [address] | | | | | | [place] | | | | | | [place] [address] | | | | | | [phone] | | | | | | | | +--------+---------+ + + + | 01/01/ | Office | Cardiology | [place]via, | | | 2019 | Visit | | PARISA [place] [address] | | | | | | [place] | | | | | | [place] [address] | | | | | | [phone] | | | | | | | | +--------+---------+ + + + documented as of this encounter Visit Diagnoses Not on filedocumented in this encounter"
--- OUTSIDE RECORDS SUMMARY | ~2019-12-06 | XMS | Encounter Summary ---
Demographics + + + | Address | [address] | | | [place] [address] | + + + | Home Phone [...] Providers + +------+ + | Care Engineering Design Supervisor Name | Role | Phone | [...] | CARDIOLOGY [address] | [address] | Interrogation | | | | [place], | [place], | (Primary Dx); | | | | [place] [address] | [place] [address] | [place] [facility] | | | | [phone] | [phone] | permanent cardiac | | | | [...] | | | | | [place] [address] | | | | | | [phone] | | | | | | | | +--------+---------+ + + + | 01/01/ | Office | Cardiology | [place]via | | | 2019 | Visit | | PARISA [place] [address] | | | | | | [place], | | | | | | [place] [address] | | | | | | [phone] | | | | | | | [...] remote PDF scanned into | | | [facility] for remote interrogation results. Data collected [...]
--- OUTSIDE RECORDS SUMMARY | ~2019-12-06 | XMS | Encounter Summary ---
Demographics + + + | Address | [address] | | | [place] [address] | + + + | Home Phone [...] Team Providers + +------+ + | Care Spa Director Name | Role | Phone | [...] [address] | | | | | | [place], [place] | (Fax) | | | | | [address] | | | | | | [phone] | | | +--------+ + + + [...] | | | | | [place] [address] | | | | | | [phone] | | | | | | | | +--------+---------+ + + + | 01/01/ | Office | Cardiology | [place]via, | | | 2020 | Visit | | PARISA [place] [address] | | | | | | [place], | | | | | | [place] [address] | | | | | | [phone] | | | | | | | | +--------+---------+ + + + documented as of this encounter Visit Diagnoses Not on filedocumented in this encounter"
--- OUTSIDE RECORDS SUMMARY | ~2019-12-06 | XMS | Encounter Summary ---
Demographics + + + | Address | [address] | | | [place] [address] | + + + | Home Phone [...] Providers + +------+ + | Care Brick Wheeler Name | Role | Phone | + +------+ + PCP | Unavailable | + +------+ + Encounter Details +--------+ + + + + | Date | Type | Department | Care Team | Description | +--------+ + + + + | 11/05/ | [facility] | [facility] | Naresh Mckeon | | | 2009 | Encounter | MED CTR SLEEP | MD Chaya [address] | | | | | CENTER [address] [place] [address] | [place] | | | | | [place] | [place] [address] | | | | | [address] | [phone] | | | | | [phone] | | | +--------+ + + + [...] | | | | | [place] [address] | | | | | | [phone] | | | | | | | | +--------+---------+ + + + | 01/01/ | Office | Cardiology | Silvia, | | | 2020 | Visit | | PARISA [place] [address] | | | | | | [place], | | | | | | [place] [address] | | | | | | [phone] | | | | | | | | +--------+---------+ + + + documented as of this encounter Visit Diagnoses Not on filedocumented in this encounter"
--- OUTSIDE RECORDS SUMMARY | ~2019-12-06 | XMS | Encounter Summary ---
Demographics + + + | Address | [address] | | | [place] [address] | + + + | Home Phone [...] Providers + +------+ + | Care Color Artist Name | Role | Phone | + +------+ + PCP | Unavailable | + +------+ + Encounter Details +--------+ + + + + | Date | Type | Department | Care Team | Description | +--------+ + + + + | 01/17/ | [facility] | [facility] | Jonas Ramos, | | | 2009 | Encounter | MED CTR EMERGENCY | MD [address] | | | | | CENTER [address] | [facility] [place] | | | | | [place] | [place] [address] | | | | | [address] | [phone] | | | | | [phone] | | | +--------+ + + + [...] | | | | | | [facility] | | | | | | [place] [address] | | | | | | [phone] | | | | | | | | +--------+---------+ + + + | 01/01/ | Office | Cardiology | Silvia, | | | 2020 | Visit | | PARISA Vernon [address] | | | | | | [place], | | | | | | [place] [address] | | | | | | [phone] | | | | | | | | +--------+---------+ + + + documented as of this encounter Visit Diagnoses Not on filedocumented in this encounter"
--- OUTSIDE RECORDS SUMMARY | ~2019-12-06 | XMS | Encounter Summary ---
Demographics + + + | Address | [address] | | | [place] [address] | + + + | Home Phone [...] Team Providers + +------+ + | Care Pipeline Maintenance Supervisor Name | Role | Phone | + +------+ + | Kirk French MD | PCP | | + +------+ + Encounter Details +--------+---------+ + + + | Date | Type | Department | Care Team | Description | +--------+---------+ + + + | 09/26/ | Office | [facility] | Kirk French | Weight loss (Primary | | 2018 | Visit | [facility] | MD Bre[address] | Dx); Bipolar | | | | PRIMARY CARE [address] | affective disorder, | | | | [address] | [place] [address] | remission status | | | | [place], [place] | [phone] | unspecified (HCC); | | | | [address] | | Mixed anxiety | | | | [phone] | | depressive disorder; | | | [...] [employer] Peptic ulcer disease Premature ventricular contraction [facility] 06/26/2013 LAST PSA:12/16/2010 RESULT:0.14 LAST [...] Surgeon: Daljit Singletary MD; Location: [facility] CV LAB CARDIAC CATHERIZATION N/A 01/25/2019 Procedure: CV Cor Angio; Surgeon: Daljit Singletary MD; Location: [facility] CV LAB COLONOSCOPY N/A 12/24/2017 Procedure: COLONOSCOPY; Surgeon: Emmanuel Daniel MD; Location: [facility] MEDICAL PROCEDURE UNIT COLONOSCOPY N/A 01/05/2019 Procedure: COLONOSCOPY; Surgeon: Emmanuel Daniel MD; Location: [facility] MEDICAL PROCEDURE UNIT EGD 12/24/2017 HARDWARE [...] Surgeon: Emmanuel Daniel MD; Location: [facility] MEDICAL PROCEDURE UNIT UPPER GASTROINTESTINAL ENDOSCOPY N/A 01/05/2019 Procedure: EGD; Surgeon: Emmanuel Daniel MD; Location: [facility] MEDICAL PROCEDURE UNIT URETEROSCOPY Left 04/13/2019 Procedure: Cystoscopy, Left ureteroscopy with laser lithotripsy, Left ureteral stent place ment; Surgeon: Matthew Uriarte MD; Location: [facility] MAIN OR VASECTOMY Social History Socioeconomic [...] ONE TABLET UNDER THE TONGUE EVERY 5 [place] NUTES NEEDED FOR CHEST PAIN 250 tablet 0 [place]-3 Fatty Acids (SALMON OIL-1000 PO) CAPS, one [...] PLT 169 06/02/2019 No results found for: ZYEACPQJ01 No results found for: FOLATE No results [...] Co multiple ER visits Going again to [facility] tomorrow Already followed by GI Co [...] dollars a month. We will defer to [facility], perhaps to have some sort of [...] | | | | | | [place] [address] | | | | | | [phone] | | | | | | | | +--------+---------+ + + + | 01/01/ | Office | Cardiology | Silvia, | | | 2019 | Visit | | PARISA Vernon [address] | | | | | | [place] | | | | | | [place] [address] | | | | | | [phone] | | | | | | | [...]
--- OUTSIDE RECORDS SUMMARY | ~2019-12-06 | XMS | Encounter Summary ---
Demographics + + + | Address | [address] | | | [place] [address] | + + + | Home Phone [...] Team Providers + +------+ + | Care Correctional Facility Nurse Name | Role | Phone | [...] [address] | | | | | [place], | [place], | | | | | [place] [address] | [place] [address] | | | | | [phone] | [phone] | | | | | | | [...] | | | | | [place] [address] | | | | | | [phone] | | | | | | | | +--------+---------+ + + + | 01/01/ | Office | Cardiology | Silvia, | | | 2019 | Visit | | PARISA [place] [address] | | | | | | [place], | | | | | | [place] [address] | | | | | | [phone] | | | | | | | | +--------+---------+ + + + documented as of this encounter Visit Diagnoses Not on filedocumented in this encounter"
--- OUTSIDE RECORDS SUMMARY | ~2019-12-06 | XMS | Encounter Summary ---
Demographics + + + | Address | [address] | | | [place] [address] | + + + | Home Phone [...] Team Providers + +------+ + | Care Heddler Tier Name | Role | Phone | + +------+ + PCP | Unavailable | + +------+ + Encounter Details +--------+ + + + + | Date | Type | Department | Care Team | Description | +--------+ + + + + | 09/08/ | [facility] | [facility] | Naresh Mckeon | | | 1998 | Encounter | MED CTR SLEEP | MD Chaya [address] | | | | | CENTER [address] | [place] | | | | | [place] | [place] [address] | | | | | [address] | [phone] | | | | | [phone] | | | +--------+ + + + [...] | | | | | [place] [address] | | | | | | [phone] | | | | | | | | +--------+---------+ + + + | 01/01/ | Office | Cardiology | Silvia, | | | 2020 | Visit | | PARISA [place] [address] | | | | | | [place], | | | | | | [place] [address] | | | | | | [phone] | | | | | | | | +--------+---------+ + + + documented as of this encounter Visit Diagnoses Not on filedocumented in this encounter"
--- OUTSIDE RECORDS SUMMARY | ~2019-12-06 | XMS | Encounter Summary ---
Demographics + + + | Address | [address] | | | [place] [address] | + + + | Home Phone [...] Team Providers + +------+ + | Care Cream Cheese Maker Name | Role | Phone | [...] | Aneurysmal | [place], | [address] | | | | | dilatation | PARISA [place] | [place], | | | | | (HCC) | [address] | [place] | | | | | Procedures | [place] | [address] | | | | | ECHO | [place], | Phone: | | | | | Complete | [place] | [phone] | | | | | | [address] | Fax: | | | | | | Phone: | [phone] | | | | | | [phone] | | | | | | | Fax: | | | | | | | [phone] | | +--------+--------+ + + + + Encounter Details +--------+ + + + + | Date | Type | Department | Care Team | Description | +--------+ + + + + | 11/16/ | Orders Only | [facility] [place] | [place], | Aneurysmal | | 2017 | | CARDIOLOGY [address] | [place] [address] | dilatation (HCC) | | | | [place], | [place], | (Primary Dx) | | | | [place] [address] | [place] [address] | | | | | [phone] | [phone] | | | | | | | [...] | | | | | [place] [address] | | | | | | [phone] | | | | | | | | +--------+---------+ + + + | 01/01/ | Office | Cardiology | Silvia, | | | 2019 | Visit | | PARISA Solis [address] | | | | | | [place], | | | | | | [place] [address] | | | | | | [phone] | | | | | | | | +--------+---------+ + + + documented as of this encounter Results ECHO Complete (11/16/2017 9:54 [...] Patient Name VICTOR HUGO | | | [place] Room Number SARAH Patient | | | [id number] Date of Study 11/16/2017 Number | | | Visit Number [id number] | | | Referring Physician GURJIT TROY Number | | | NORMA SOLIS Date | | | of 1960 Manager Application Development ROMAINE | | | MARISSA TIPTON Age 57 year(s) Interpreting | | | GURJIT TROY | | | Cops SYDNI CAGLE, | | | | | | Gender Male Nurse | | | Stress Senior Manufacturing Supervisor Procedure Type of | | | Study [...] | | | EF | | | Gjwoesfic38% Left Ventricle Diastolic Dimension: 5.12 cm | [...] Volume: 46.33 ml | | | EF Psvshqbqx12% | | | | | | Left [...] Rad Results In - 11/16/2017 1:48 PM [facility] Transthoracic Echocardiography Report | | (TTE) Demographics Patient Name [facility] Room Number SARAH | | Patient [id number] Date of Study 11/16/2017 Number Visit Number | | [id number] Referring Physician GURJIT TROY | | Number RHYNARD IRMA Date of | | 1960 Manager Application Development ROMAINE TIPTON RDCS Age 57 year(s) | | Interpreting GURJIT TROY Cops | | SYDNI CAGLE MD | | [...] LA Volume: 46.33 ml | | EF Rpunwhmjc43% Left Ventricle Diastolic Dimension: 5.12 cm Systolic [...] LA Volume: 46.33 ml | | EF Slfoulexz43% | | | | Left Ventricle | [...] | + + | Aneurysmal dilatation (HCC) - Primary Aneurysm of unspecified site | + + documented in this encounter"
--- OUTSIDE RECORDS SUMMARY | ~2019-12-06 | XMS | Encounter Summary ---
Demographics + + + | Address | [address] | | | [place] [address] | + + + | Home Phone [...] Providers + +------+ + | Care Microbiology Manager Name | Role | Phone | [...] | 07/07/ | Telephone | [facility] [place] | Daljit Singletary, | Appointment | | 2012 | | CARDIOLOGY [address] | MD [address] | | | | | [place], | [place], | | | | | [place] [address] | [place] [address] | | | | | [phone] | [phone] | | | | | | | [...] | | | | | | [place] [address] | | | | | | [phone] | | | | | | | | +--------+---------+ + + + | 01/01/ | Office | Cardiology | Silvia, | | | 2019 | Visit | | PARISA [place] [address] | | | | | | [place], | | | | | | [place] [address] | | | | | | [phone] | | | | | | | | +--------+---------+ + + + documented as of this encounter Visit Diagnoses Not on filedocumented in this encounter"
--- OUTSIDE RECORDS SUMMARY | ~2019-12-06 | XMS | Encounter Summary ---
Demographics + + + | Address | [address] | | | [place] [address] | + + + | Home Phone [...] Providers + +------+ + | Care Business Management Specialist Name | Role | Phone | + +------+ + PCP | Unavailable | + +------+ + Encounter Details +--------+ + + + + | Date | Type | Department | Care Team | Description | +--------+ + + + + | 01/17/ | [facility] | [facility] | Jonas Ramos, | | | 2009 | Encounter | MED CTR EMERGENCY | MD [address] | | | | | CENTER [address] | [facility] [place] | | | | | [place] | [place] [address] | | | | | [address] | [phone] | | | | | [phone] | | | +--------+ + + + [...] | | | | | | [facility] | | | | | | [place] [address] | | | | | | [phone] | | | | | | | | +--------+---------+ + + + | 01/01/ | Office | Cardiology | Silvia, | | | 2020 | Visit | | PARISA Vernon [address] | | | | | | [place], | | | | | | [place] [address] | | | | | | [phone] | | | | | | | | +--------+---------+ + + + documented as of this encounter Visit Diagnoses Not on filedocumented in this encounter"
--- OUTSIDE RECORDS SUMMARY | ~2019-12-06 | XMS | Encounter Summary ---
Demographics + + + | Address | [address] | | | [place] [address] | + + + | Home Phone [...] Team Providers + +------+ + | Care Cost Accounting Manager Name | Role | Phone | [...] [address] | | | | | [address] | [place] | | | | | [phone] | [address] | | | | | | | [...] | | | | | [place] [address] | | | | | | [phone] | | | | | | | | +--------+---------+ + + + | 01/01/ | Office | Cardiology | Silvia, | | | 2019 | Visit | | PARISA [place] [address] | | | | | | [place], | | | | | | [place] [address] | | | | | | [phone] | | | | | | | | +--------+---------+ + + + documented as of this encounter Visit Diagnoses Not on filedocumented in this encounter"
--- OUTSIDE RECORDS SUMMARY | ~2019-12-06 | XMS | Encounter Summary ---
Demographics + + + | Address | [address] | | | [place] [address] | + + + | Home Phone [...] Providers + +------+ + | Care Budget Examiner Name | Role | Phone | [...] | 07/30/ | Telephone | [facility] [place] [facility] | Michael Amanda, | Results | | 2013 | | MEDICINE [place] | DO [address] | | | | | [address] | [place] | | | | | [place] | [address] | | | | | [address] | | | | | | [phone] | | | +--------+ + + + [...] | | | | | | [place] [address] | | | | | | [phone] | | | | | | | | +--------+---------+ + + + | 01/01/ | Office | Cardiology | Silvia, | | | 2019 | Visit | | PARISA [place] [address] | | | | | | [place], | | | | | | [place] [address] | | | | | | [phone] | | | | | | | | +--------+---------+ + + + documented as of this encounter Visit Diagnoses Not on filedocumented in this encounter"
--- OUTSIDE RECORDS SUMMARY | ~2019-12-06 | XMS | Encounter Summary ---
Demographics + + + | Address | [address] | | | [place] [address] | + + + | Home Phone [...] Providers + +------+ + | Care Patent Engineer Name | Role | Phone | + +------+ + | Kirk French MD | PCP | | + +------+ + Reason for Visit + + + | Reason | Comments | + + + | Follow-up | | + + + | Bradycardia | | + + + | Device Check | | | (In-office) | | + + + | Coronary Artery | | | Disease | | + + + | Hypertension | | + + + Encounter Details +--------+---------+ + + + | Date | Type | Department | Care Team | Description | +--------+---------+ + + + | 06/26/ | Office | [facility] | Geri Angel, | Coronary artery | | 2015 | Visit | CARDIOLOGY [address] | 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 CAR 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 [address] | disease involving | | | | [place], | [place], [place] | quechan coronary | | | | [place] [address] | [address] | artery without | | | | [phone] | | angina pectoris | | | | | | (Primary Dx); SINUS | | | | | | BRADYCARDIA; | | | | | | Essential | | | | | | hypertension; | | | | | | Hyperlipidemia; | | | | | | Symptomatic PVCs | +--------+---------+ + + + Social History [...] + + + | Blood Pressure | 122/84 | 06/26/2015 1:12 PM | | | | | PDT | | + + + + + | Pulse | 84 | 06/26/2015 12:34 PM | | | | | PDT | | + + + + + | Temperature | - | - | | + + + + + | Respiratory Rate | 20 | 06/26/2015 12:34 PM | | | | | PDT | | + + + + + | Oxygen Saturation | - | - | | + + + + + | Inhaled Oxygen | - | - | | | Concentration | | | | + + + + + | Weight | 111.1 kg (245 lb) | 06/26/2015 12:34 PM | | | | | PDT | | + + + + + | Height | 190.5 cm (6' 3") | 06/26/2015 12:34 PM | | | | | PDT | | + + + + + | Body Mass Index | 30.62 | 06/26/2015 12:34 PM | | | | | PDT [...] encounter Progress Notes Geri Angel ARNP - 06/26/2015 12:36 PM PDTFormatting of this note might be different fr om the original. PATIENT NAME: Moe Sanchez : 1960: AGE: 55 y.o. PRIMARY CARE: Kirk French MD OUTPATIENT FOLLOW UP VISIT Date of Service: 06/26/15 HISTORY OF PRESENT ILLNESS: Moe Sanchez is a 55 y.o. male with a history of non-critical coronary artery d isease, hypertension, symptomatic bradycardia status post Medtronic dual-chamber permanent p acemaker implantation 06/14/09, frequent premature ventricular contractions status post ablat ion spring 2012, and bipolar disorder with anxiety. He is being seen today for follow up an d device interrogation. He was last seen 10/23/14 at which time he was planning to return to see Dr. Gambino regard ing his PVCs, which he did in November. He was noted to have very reasonable control of his PVCs and no medication changes were made. Since that time, his main complaint is back pain. He has had a fair energy level. He has not been very active. He enjoys raising his [place] and working in yard in his spare time. He has had atypical chest discomfort that munoz s not occur with exertion. He went to [facility] at the end of for his symptoms of chest pain and he had normal cardiac enzymes, no EKG changes, no varghese es in his echocardiogram or CT angiogram. His symptoms resolved after treatment of his acid reflux, and have not recurred He has had shortness of breath with exertion of walking up s tairs, but he is limited by his back pain before he notices shortness of breath, ant this is unchanged. He has occasional lightheadedness when standing quickly, which is unchanged and not bothersome to him. He has noticed brief palpitations that have no associated symptoms and are unchanged in frequency and duration from his norm. He has noticed mild swelling at ankles by the end of the day that is resolved in the morning, which has been stable for him. He is able to sleep laying down at night without any symptoms of shortness of breath. He has not used his CPAP for the past year. He reports that he doesn't really have a good reas on not to use it, and could restart using it. He is planning to travel to [facility] in the ve ry near future for up to a month due to his glrikx-xt-ujv having a significant stroke there MEDICAL, SURGICAL, AND PERSONAL HISTORY Past Medical, [...] ELSEWHERE ULCERATIVE COLITIS Chest pain. No ACS. SINUS BRADYCARDIA Pacemaker - Medtronic - [id number] Adapta - Implanted 06/14/2009 HEPATITIS B PUD FATTY LIVER DISEASE SUBSTANCE ABUSE, MULTIPLE DEPRESSION Hypoglycemia Symptomatic PVCs Tachycardia Preventative health care Coronary artery disease involving quechan coronary artery without angina pectoris Cannabis abuse, daily use Ascending thoracic aortic aneurysm CURRENT MEDICATIONS Current Outpatient Prescriptions Medication Sig Dispense Refill 5-Hydroxytryptophan (5-HTP) 100 MG CAPS Take by mouth 2 (two) times daily. aluminum & magnesium hydroxide-simethicone (MAALOX REGULAR STRENGTH) 200-200-20 mg/5 mL suspension Take 30 mLs by mouth every 4 hours as needed for Indigestion. 1 Bottle 0 amLODIPine (NORVASC) 5 mg tablet take 2 [...] Twice daily as needed for Anx iety. clonidine (CATAPRES) 0.2 MG tablet Take 1 tablet by mouth 3 times daily. 90 tablet 4 diphenhydrAMINE (BENADRYL) 25 MG capsule Take 25 mg by mouth as needed. dronabinol (MARINOL) 10 MG capsule Take 10 mg by mouth 2 times daily (before meals). gabapentin (NEURONTIN) 600 MG tablet Take 1 [...] Take 1 tablet by mouth Daily. 30 tabl et 6 [facility] Natural [...] no relief after 3rd dose, call 911 25 tablet 11 [place]-3 Fatty Acids (SALMON OIL-1000 PO) CAPS, one capsule by mouth daily twice daily ONE TOUCH DELICA LANCETS [facility] Check glucose as needed for hypoglycemia 100 each 3 pantoprazole (PROTONIX) 40 mg tablet Take 1 tablet by mouth every morning (before break fast). 30 tablet 2 pravastatin (PRAVACHOL) 40 MG tablet take 1 tablet by mouth once daily 90 tablet 1 promethazine (PHENERGAN) 25 mg tablet Take 25 mg by mouth every 8 hours as needed. rOPINIrole (REQUIP) 1 mg tablet Take 1 tablet by mouth nightly. 0 silodosin (RAPAFLO) 8 mg CAPS Take 1 capsule by mouth Daily. to reduce urinary frequenc y Lot #[id number], exp 07/2016 21 capsule 0 Specialty Vitamins Products (PROSTATE) TABS Take 2 tablets by mouth Daily. THEANINE PO Take 1 tablet by mouth Daily. UNABLE TO FIND Take [...] Review of Systems Constitutional: Negative for fever, chills, weight loss, malaise/fatigue and diaphoresis. HENT: Positive for tinnitus. Negative for hearing loss and nosebleeds. Eyes: Positive for double vision. Negative for blurred vision. Respiratory: Positive for shortness of breath (With activity). Negative for cough. Cardiovascular: Positive for chest pain, palpitations, orthopnea (Not useing his CPAP) and leg swelling. Negative for claudication. Gastrointestinal: Positive for heartburn and nausea. Negative for vomiting, abdominal pain, diarrhea, constipation, blood in stool and melena. Genitourinary: Positive for frequency. Negative for urgency and hematuria. Musculoskeletal: Positive for myalgias, back pain, joint pain and neck pain. Negative for f alls. Skin: Negative for itching and rash. Neurological: Positive for tingling and headaches. Negative for dizziness, tremors, seizure s, loss of consciousness and weakness. Endo/Heme/Allergies: Positive for environmental allergies. Bruises/bleeds easily. Psychiatric/Behavioral: Negative for memory loss. The patient is nervous/anxious and has in somnia. OBJECTIVE: PHYSICAL EXAM BP 122/84 mmHg | Pulse 84 | Resp 20 | Ht 1.905 m (6' 3") | Wt 111.131 kg (245 lb) | BMI 30. 62 kg/m2 Physical Exam Constitutional: He is [...] PLTEX 163 07/26/2014 I reviewed records from Jay Gambino MD for office visit on 11/30/14. I reviewed records from PCP for office visit on 11/26/14. DEVICE INTERROGATION DATE OF SERVICE: June 26, 2015 PATIENT NAME: Moe Sanchez DATE OF : 1960 INTERROGATION PERFORMED BY: PARISA Velazquez. INTERROGATION REVIEWED BY: PARISA Velazquez DEVICE IDENTIFICATION: Enterprise Manager: Reimage. Leads: Right atrium and right ventricle (dual chamber). PACEMAKER PARAMETERS Mode: AAIR<=>DDDR (MVP) Lower rate limit: 70 beats per minute. See scanned report for full parameters. PACEMAKER TESTING Rhythm: Current underlying rhythm shows sinus bradycardia with rate 58 beats per minute. Appropriate lead impedance testing was performed. Pacing impedances were reviewed for any s ignificant changes. Sensing tests were performed by decreasing LRL. Adequacy of pacing thres holds were tested by increasing LRL for each lead and recorded for loss of capture. Final ou tputs were assessed for adequate safety margins. See scanned report. Battery data: Estimated remaining battery longevity is 5.5 years. DIAGNOSTICS Heart rate histogram shows a good distribution. Events: Mode switch: None High atrial rates/AMS: None. High ventricular rates: None. Counters: Single PVCs: 1407. PVC runs: 6. PAC runs: 2. . SUMMARY There is a normal and stable device function. Setting changes: None. FOLLOW UP Remote monitoring: None -prefers office follow up ASSESSMENT: 1. Non-critical coronary artery disease: A. [...] to go back in 3 days to [place] for an attempt of ablation under general [...] dizziness. He is in class I-II of [place] 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 T here are no signs or symptoms of overt congestive heart failure. There is no fluid retentio n on physical examination. He has had a very low number of PVCs on his device check today. 3. Sinoatrial node dysfunction with symptomatic bradycardia: A. The echocardiogram on 05/25/09 revealed a normal left ventricular size and sys tolic function, LVEF 65 to 70%. B. Medtronic DDD permanent pacemaker implantation on 06/14/[address] Daljit masters. C. Today his device interrogation shows a normal and stable function. 4. Hypertension. A. [...] device interrogation, or sooner with colten jade. Portions of this chart may have been created with [employer] voice recognition software. Occasi onal wrong-word or sound-alike substitutions may have occurred due to the inherent granger itations of voice recognition software. Please read the chart carefully and recognize, using context, where these substitutions have occurred. documented in this e ncounter Plan of Treatment +--------+---------+ + + + | Date | Type | Specialty | Care Team | Description | +--------+---------+ + + + | 12/18/ | Office | Gastroenterology | HiramRabiaDarin | | | 2019 | Visit | | MD Jacek [address] | | | | | | [address] | | | | | | [place] [address] | | | | | | [phone] | | | | | | | | +--------+---------+ + + + | 01/01/ | Office | Cardiology | Silvia, | | | 2019 | Visit | | PARISA Vernon [address] | | | | | | [place], | | | | | | [place] [address] | | | | | | [phone] | | | | | | | | +--------+---------+ + + + documented as of this encounter Procedures + +--------+ + + + | Procedure Name | Priori | Date/Time | Associated Diagnosis | Comments | | | ty | | | | + +--------+ + + + | DEVICE INTERROGATION | Routin | 06/26/2015 | SINUS BRADYCARDIA | Results for this | | | e | 1:41 PM | | procedure are in the | | | | PDT | | results section. | + +--------+ + + + | DEVICE INTERROGATION | Routin | 06/26/2015 | SINUS BRADYCARDIA | Results for this | | | e | 1:41 PM | | procedure are in the | | | | PDT | | results section. | + +--------+ + + + | DEVICE INTERROGATION | | 06/26/2015 | | Results for this | | - EXTERNAL SCAN | | 12:00 AM | | procedure are in the | | | | PDT | | results section. | + +--------+ + + + documented in this encounter Results Device Interrogation (06/26/2015 1:41 PM PDT) + + + | Narrative | Performed At | + + + | PARISA Velazquez 06/26/2015 13:41 DEVICE | | | INTERROGATION | | | DATE OF SERVICE: June 26, 2015 PATIENT NAME: | | | Moe Sanchez DATE OF : 1960 | | | INTERROGATION PERFORMED BY: PARISA Velazquez. INTERROGATION | | | REVIEWED BY: PARISA Velazquez DEVICE IDENTIFICATION: | | | Enterprise Manager: Reimage. Leads: Right atrium and right | | | ventricle (dual chamber). PACEMAKER PARAMETERS Mode: | | | AAIR<=>DDDR (MVP) Lower rate limit: 70 beats per minute. See | | | scanned report for full parameters. PACEMAKER TESTING Rhythm: | | | Current underlying rhythm shows sinus bradycardia with rate 58 | | | beats per minute. Appropriate lead impedance testing was performed. | | | Pacing impedances were reviewed for any significant changes. Sensing | | | tests were performed by decreasing LRL. Adequacy of pacing | | | thresholds were tested by increasing LRL for each lead and recorded | | | for loss of capture. Final outputs were assessed for adequate safety | | | margins. See scanned report. Battery data: Estimated remaining | | | battery longevity is 5.5 years. DIAGNOSTICS Heart rate histogram | | | shows a good distribution. Events: Mode switch: None High atrial | | | rates/AMS: None. High ventricular rates: None. Counters: | | | Single PVCs: 1407. PVC runs: 6. PAC runs: 2. . SUMMARY | | | There is a normal and stable device function. Setting changes: | | | None. FOLLOW UP Remote monitoring: None -prefers office | | | follow up | | + + + DEVICE INTERROGATION - EXTERNAL SCAN (06/26/2015 12:00 AM PDT) + + + | Narrative | Performed At | + + + | Ordered by an | | | unspecified provider. | | + + + documented in this encounter Visit Diagnoses + + | Diagnosis | + + | Coronary artery disease involving quechan coronary artery without angina pectoris - | | Primary | + + | SINUS BRADYCARDIA Sinoatrial node dysfunction | + + | Essential hypertension Unspecified essential hypertension | + + | Hyperlipidemia Other and unspecified hyperlipidemia | + + | Symptomatic PVCs Other premature beats | + + documented in this encounter
--- OUTSIDE RECORDS SUMMARY | ~2019-12-06 | XMS | Encounter Summary ---
Demographics + + + | Address | [address] | | | [place] [address] | + + + | Home Phone [...] + +------+ + | Care Pest Control Service Representative Name | Role | Phone | [...] [place] | | | | | | [address] | [address] Phone: | | | | | | Phone: | [phone] | | | | | | [phone] | Fax: | | | | | | Fax: | [phone] | | | | | | [phone] | | +--------+ + + + + [...] | diurnal enuresis | | | | [place], [place] | [place], [place] | (Primary Dx); BPH | | | | [address] | [address] | with | | | | [phone] | | obstruction/lower | | | | [...] Haleigh rodarte states that the surgeon in [place] who performed his neck surgery is no longer practicing a nd was apparently disciplined and had his license revoked by the [facility]. He has us ed marijuana for [...] APNEA CONDS CLASSIFIED ELSEWHERE (12/15/2010); Ulcerative colitis ([facility]); Ches t pain; SINUS BRADYCARDIA; HEPATITIS B; PUD; FATTY LIVER DISEASE; SUBSTANCE ABUSE, MULTIPLE; Preventative health care (06/26/2013); Bladder troubles; Tuberculosis; Anginal pain ([facility]); St roke ([facility]); Prostate troubles; and Neurological disorder. Past Surgical [...] needed for Chest pain. 25 tablet 12 [place]-3 Fatty Acids (SALMON OIL-1000 PO) CAPS, one [...] Date/Time: 04/22/2012 16:56 Transcribed Date/Time: 04/22/2012 17:32 Stock Broker Supervisor: <Electronically Signed by Jama Solis MD> 04/23/12 [...] Date/Time: 04/23/2012 10:54 Transcribed Date/Time: 04/23/2012 11:06 Stock Broker Supervisor: <Electronically Signed by Jama Solis MD> 04/24/12 6396 IMPRESSION: 1. Nocturnal and diurnal enuresis. I [...] still believe that the recommendations from [facility] neurosurgeon, Dr. Demarco, on 03/13/2014 would [...] have not thoroughly proofread this note, and echo vasc tech erro rs may occur. CC: Kirk French [...] | | | | | [place] [address] | | | | | | [phone] | | | | | | | | +--------+---------+ + + + | 01/01/ | Office | Cardiology | Silvia, | | | 2019 | Visit | | PARISA Vernon [address] | | | | | | [place], | | | | | | [place] [address] | | | | | | [phone] | | | | | | | [...] 1.001 - 1.030 | | | | [place], | | | | | | [facility], [...]
--- OUTSIDE RECORDS SUMMARY | ~2019-12-06 | XMS | Encounter Summary ---
Demographics + + + | Address | [address] | | | [place] [address] | + + + | Home Phone [...] Providers + +------+ + | Care Disability Program Navigator Name | Role | Phone | + [...] | | | | | region | [address] | | | | | | Procedures | [address] | | | | | | [place] | [place], [place] | | | | | | Myelography | [address] | | | | | | Lumbar Spine | Phone: | | | | | | | [phone] | | | | | | | Fax: | | | | | | | [phone] | | +--------+--------+ + + + + [...] | | | | | region | [address] | | | | | | Procedures | [address] | | | | | | CT | [place], [place] | | | | | | Myelography | [address] | | | | | | Lumbar Spine | Phone: | | | | | | | [phone] | | | | | | | Fax: | | | | | | | [phone] | | +--------+--------+ + + + + Encounter Details +--------+ + + + + | Date | Type | Department | Care Team | Description | +--------+ + + + + | 04/07/ | Hospital | [facility] | Pia Akhtar | Spinal stenosis, | | 2016 | Encounter | [address] | MD [address] | lumbar region | | | | [place], | [address] | | | | | [place] [address] | [place] [address] | | | | | [phone] | [phone] | | | | | | | [...] + + + +---------+ + + | [place]-3 Fatty | CAPS, one capsule by | [...] | | | | | [place] [address] | | | | | | [phone] | | | | | | | | +--------+---------+ + + + | 01/01/ | Office | Cardiology | Silvia, | | | 2019 | Visit | | PARISA Vernon [address] | | | | | | [place], | | | | | | [place] [address] | | | | | | [phone] | | | | | | | [...] | Procedure Note | + + | Kalepsh Brown Results In - 04/07/2016 12:57 PM [...]
--- OUTSIDE RECORDS SUMMARY | ~2019-12-06 | XMS | Encounter Summary ---
Demographics + + + | Address | [address] | | | [place] [address] | + + + | Home Phone [...] Team Providers + +------+ + | Care Xm1 Tank Driver Name | Role | Phone | [...] + | 01/25/ | Telephone | [facility] | Daljit Singletary, | Appointment | | 2017 | | CARDIOLOGY [address] | MD [address] | | | | | [place], | [place], | | | | | [place] [address] | [place] [address] | | | | | [phone] | [phone] | | | | | | | [...] | | | | | [place] [address] | | | | | | [phone] | | | | | | | | +--------+---------+ + + + | 01/01/ | Office | Cardiology | Silvia, | | | 2019 | Visit | | PARISA Vernon [address] | | | | | | [place], | | | | | | [place] [address] | | | | | | [phone] | | | | | | | | +--------+---------+ + + + documented as of this encounter Visit Diagnoses Not on filedocumented in this encounter"
--- OUTSIDE RECORDS SUMMARY | ~2019-12-06 | XMS | Encounter Summary ---
Demographics + + + | Address | [address] | | | [place] [address] | + + + | Home Phone [...] Providers + +------+ + | Care Inspector Crystal Name | Role | Phone | + [...] [address] | | | | | | [place], [place] | (Fax) | | | | | [address] | | | | | | [phone] | | | +--------+ + + + [...] | | | | | [place] [address] | | | | | | [phone] | | | | | | | | +--------+---------+ + + + | 01/01/ | Office | Cardiology | Silvia, | | | 2020 | Visit | | PARISA Vernon [address] | | | | | | [place], | | | | | | [place] [address] | | | | | | [phone] | | | | | | | | +--------+---------+ + + + documented as of this encounter Visit Diagnoses Not on filedocumented in this encounter"
--- OUTSIDE RECORDS SUMMARY | ~2019-12-06 | XMS | Encounter Summary ---
Demographics + + + | Address | [address] [place] [address] [address] | | | [place] [address] | + + + | Home Phone [...] [place] | | | | | [address] | | + + + + + Care Team Providers + +------+ + | Care Manager User Interface Name | Role | Phone | + [...] | | 2019 | | Center at [facility] [address] | [address] | | | | | [address] | [place], [place] | | | | | Mailcode: [place] | [address] | | | | | [facility] and | [phone] | | | | | [place] [address] | | | | | | [place], [place] | | | | | | [address] | | | | | | [phone] | | | +--------+ + + + [...]
--- OUTSIDE RECORDS SUMMARY | ~2019-12-06 | XMS | Encounter Summary ---
Demographics + + + | Address | [address] | | | [place] [address] | + + + | Home Phone [...] Providers + +------+ + | Care Railroad Track Mechanic Name | Role | Phone | [...] [place] | | | | | | [address] | | | | | | [phone] | | | | | | | [...] | | | | | [place] [address] | | | | | | [phone] | | | | | | | | +--------+---------+ + + + | 01/01/ | Office | Cardiology | Silvia, | | | 2020 | Visit | | PARISA Vernon [address] | | | | | | [place], | | | | | | [place] [address] | | | | | | [phone] | | | | | | | | +--------+---------+ + + + documented as of this encounter Visit Diagnoses Not on filedocumented in this encounter"
--- OUTSIDE RECORDS SUMMARY | ~2019-12-06 | XMS | Encounter Summary ---
Demographics + + + | Address | [address] | | | [place] [address] | + + + | Home Phone [...] Team Providers + +------+ + | Care Transmission Superintendent Name | Role | Phone | [...] | | | 2018 | | [address] | MD William [address] | | | | | [place] | [address] | | | | | [address] | [place] | | | | | [phone] | [address] | | | | | | [phone] | | | | | | | [...] Notes by Kylah Fraser CMA at 04/11/18 0710 Author: Kylah Fraser CMA Service: (none) Author Type: Gate Supervisor Filed: 04/19/18 1118 Encounter Date: 04/11/2018 Status: Signed Building Carpenter: Kylah Fraser CMA (Gate Supervisor) See telephone encounter 04/19/18. Karne pfeiffer in this encounter Plan of Treatment +--------+---------+ + + + | Date | Type | Specialty | Care Team | Description | +--------+---------+ + + + | 12/18/ | Office | Gastroenterology | Darin Gandhi | | | 2019 | Visit | | MD Jacek [address] | | | | | | [address] | | | | | | [place] [address] | | | | | | [phone] | | | | | | | | +--------+---------+ + + + | 01/01/ | Office | Cardiology | Silvia, | | | 2019 | Visit | | PARISA Vernon [address] | | | | | | [place] | | | | | | [place] [address] | | | | | | [phone] | | | | | | | [...]
--- OUTSIDE RECORDS SUMMARY | ~2019-12-06 | XMS | Encounter Summary ---
Demographics + + + | Address | [address] | | | [place] [address] | + + + | Home Phone [...] Providers + +------+ + | Care Cook Helper Meat Name | Role | Phone | + [...] [place] | | | | | | [address] | | | | | | [phone] | | | +--------+ + + + [...] | | | | | | [place] [address] | | | | | | [phone] | | | | | | | | +--------+---------+ + + + | 01/01/ | Office | Cardiology | Silvia, | | | 2019 | Visit | | PARISA Vernon [address] | | | | | | [place], | | | | | | [place] [address] | | | | | | [phone] | | | | | | | | +--------+---------+ + + + documented as of this encounter Visit Diagnoses Not on filedocumented in this encounter"
--- OUTSIDE RECORDS SUMMARY | ~2019-12-06 | XMS | Encounter Summary ---
Demographics + + + | Address | [address] | | | [place] [address] | + + + | Home Phone [...] Team Providers + +------+ + | Care Ethanol Quality Leader Name | Role | Phone | [...] | CARDIOLOGY [address] | [address] | Interrogation | | | | [place], | [place], | (Primary Dx); | | | | [place] [address] | [place] [address] | Presence of | | | | [phone] | [phone] | permanent cardiac | | | | [...] | | | | | [place] [address] | | | | | | [phone] | | | | | | | | +--------+---------+ + + + | 01/01/ | Office | Cardiology | [place] | | | 2020 | Visit | | PARISA Vernon [address] | | | | | | [place], | | | | | | [place] [address] | | | | | | [phone] | | | | | | | [...] remote PDF scanned into | | | [facility] for remote interrogation results. Data collected [...]
--- OUTSIDE RECORDS SUMMARY | ~2019-12-06 | XMS | Encounter Summary ---
Demographics + + + | Address | [address] | | | [place] [address] | + + + | Home Phone [...] Team Providers + +------+ + | Care Lard Refiner Name | Role | Phone | + [...] | 07/07/ | Telephone | [facility] [place] | Daljit Singletary, | Appointment | | 2012 | | CARDIOLOGY [address] | MD [address] | | | | | [place], | [place], | | | | | [place] [address] | [place] [address] | | | | | [phone] | [phone] | | | | | | | [...] | | | | | | [place] [address] | | | | | | [phone] | | | | | | | | +--------+---------+ + + + | 01/01/ | Office | Cardiology | Silvia, | | | 2019 | Visit | | PARISA [address] | | | | | | [place], | | | | | | [place] [address] | | | | | | [phone] | | | | | | | | +--------+---------+ + + + documented as of this encounter Visit Diagnoses Not on filedocumented in this encounter"
--- OUTSIDE RECORDS SUMMARY | ~2019-12-06 | XMS | Encounter Summary ---
Demographics + + + | Address | [address] | | | [place] [address] | + + + | Home Phone [...] Providers + +------+ + | Care Lamination Assembler Name | Role | Phone | [...] | ER FUP | [address] | [address] | | | | | Procedures | [place], | [place], | | | | | [place] | [place] [address] | [place] [address] | | | | | | Phone: | Phone: | | | | | | [phone] | [phone] | | | | | | Fax: | Fax: | | | | | | [phone] | [phone] | +--------+--------+ + + + + Encounter Details +--------+---------+ + + + | Date | Type | Department | Care Team | Description | +--------+---------+ + + + | 02/11/ | Office | [facility] [place] | [place], | Coronary artery | | 2016 | Visit | CARDIOLOGY [address] | Janeen REGISTERED RESPIRATORY TECHNICIAN [address] | disease involving | | | | [place], | [place], | rincon coronary | | | | [place] [address] | [place] [address] | artery of rincon | | | | [phone] | [phone] | heart without angina | | | [...] him. He sleeps on 1 pillow at [facility] without any shortness of breath. Overall, he has been doing well otherwise than the [facility] iety. MEDICAL, SURGICAL, AND PERSONAL HISTORY Past [...] by mouth every evening 90 tablet 3 [facility] [place] 3RD DOSE, CALL 911 100 tablet 3 [place]-3 Fatty Acids (SALMON OIL-1000 PO) CAPS, one capsule by mouth daily twice daily ONE TOUCH DELICA LANCETS [facility] Check glucose as [...] was found Confirmed by ANGELA MARADIAGA MD ([id number]) on 01/25/2017 6:45:26 AM LAB RESULTS reviewed during visit today primarily from [facility]: LIPID Lab Results Component Value [...] PLTEX 162 11/05/2016 I reviewed records from [facility] for emergency department visit o n 01/2017 which is summarized in the HPI. Above data and testing is reviewed this visit; testing below is historical data unless othe rwise specified. ASSESSMENT: 1. Essential hypertension with goal blood pressure less than 130/80: A. Today it has been well controlled 110 mmHg. He is in class I of t he [place] Heart Ass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 On physical examination there are no signs of fluid overload. 2. Non-critical Coronary artery disease involving rincon coronary a rtery of rincon heart without angina pectoris: A. Normal exercise [...] ventricular arrhythmia performed by Dr. Gambino at [facility] on 01/30/2013. Patient had spontaneous PVCs from [...] to go back in 3 days to [place] for an attempt of ablation under [...] a normal stable device function. Estimated remaining [facility] longevity is 3.5 years.. 5. Lightheadedness and [...] this chart may have been created with Sellsy voice recognition software. Occasi onal wrong-word or [...] | | | | | [place] [address] | | | | | | [phone] | | | | | | | | +--------+---------+ + + + | 01/01/ | Office | Cardiology | Silvia, | | | 2019 | Visit | | JaneenPARISA marks [address] | | | | | | [place], | | | | | | [place] [address] | | | | | | [phone] | | | | | | | | +--------+---------+ + + + documented as of this encounter Visit Diagnoses + + | Diagnosis | + + | Coronary artery disease involving rincon coronary artery of rincon heart without | | angina pectoris - Primary | + + | Essential hypertension with goal blood pressure less than 130/80 | + + | Hyperlipidemia, mixed Mixed hyperlipidemia | + + documented in this encounter
--- OUTSIDE RECORDS SUMMARY | ~2019-12-06 | XMS | Encounter Summary ---
Demographics + + + | Address | [address] | | | [place] [address] | + + + | Home Phone [...] Team Providers + +------+ + | Care Eradicator Name | Role | Phone | + +------+ + | Darion Holden DO | PCP | | + +------+ + Encounter Details +--------+ + + + + | Date | Type | Department | Care Team | Description | +--------+ + + + + | 08/05/ | Hospital | [facility] | Emmanuel Daniel MD | | | 2009 | Encounter | MED CTR XRAY [address] | [address] | | | | | [place] | [address] [place], [place] | | | | | [place] [address] | [address] | | | | | [phone] | | | +--------+ + + + [...] | | | | | [place] [address] | | | | | | [phone] | | | | | | | | +--------+---------+ + + + | 01/01/ | Office | Cardiology | Silvia, | | | 2019 | Visit | | PARISA Vernon [address] | | | | | | [place], | | | | | | [place] [address] | | | | | | [phone] | | | | | | | | +--------+---------+ + + + documented as of this encounter Visit Diagnoses Not on filedocumented in this encounter"
--- OUTSIDE RECORDS SUMMARY | ~2019-12-06 | XMS | Encounter Summary ---
Demographics + + + | Address | [address] | | | [place] [address] | + + + | Home Phone [...] Team Providers + +------+ + | Care Administration Physician Name | Role | Phone | [...] [address] | | | | | | [place], [place] | (Fax) | | | | | [address] | | | | | | [phone] | | | +--------+ + + + [...] | | | | | [place] [address] | | | | | | [phone] | | | | | | | | +--------+---------+ + + + | 01/01/ | Office | Cardiology | Silvia, | | | 2020 | Visit | | PARISA Vernon [address] | | | | | | [place], | | | | | | [place] [address] | | | | | | [phone] | | | | | | | | +--------+---------+ + + + documented as of this encounter Visit Diagnoses Not on filedocumented in this encounter"
--- OUTSIDE RECORDS SUMMARY | ~2019-12-06 | XMS | Encounter Summary ---
Demographics + + + | Address | [address] | | | [place] [address] | + + + | Home Phone [...] Providers + +------+ + | Care Senior Reactor Operator Name | Role | Phone | [...] + + + + | 11/05/ | Telephone | [facility] | Daljit Singletary, | Chest Pain | | 2016 | | CARDIOLOGY [address] | MD [address] [place] | | | | | [place], | [place], | | | | | [place] [address] | [place] [address] | | | | | [phone] | [phone] | | | | | | | [...] | | | | | | [place] [address] | | | | | | [phone] | | | | | | | | +--------+---------+ + + + | 01/01/ | Office | Cardiology | Silvia, | | | 2019 | Visit | | PARISA Vernon [address] | | | | | | [place], | | | | | | [place] [address] | | | | | | [phone] | | | | | | | | +--------+---------+ + + + documented as of this encounter Visit Diagnoses Not on filedocumented in this encounter"
--- OUTSIDE RECORDS SUMMARY | ~2019-12-06 | XMS | Encounter Summary ---
Demographics + + + | Address | [address] | | | [place] [address] | + + + | Home Phone [...] Providers + +------+ + | Care Supervisor Assembly Department Name | Role | Phone | [...] Refill | | 2013 | | [facility] | DO [address] | | | | | [address] | [place] | | | | | [place] | [address] | | | | | [address] | | | | | | [phone] | | | +--------+--------+ + + + [...] | | | | | [place] [address] | | | | | | [phone] | | | | | | | | +--------+---------+ + + + | 01/01/ | Office | Cardiology | Silvia, | | | 2019 | Visit | | PARISA Vernon [address] | | | | | | [place], | | | | | | [place] [address] | | | | | | [phone] | | | | | | | | +--------+---------+ + + + documented as of this encounter Visit Diagnoses Not on filedocumented in this encounter"
--- OUTSIDE RECORDS SUMMARY | ~2019-12-06 | XMS | Encounter Summary ---
Demographics + + + | Address | [address] | | | [place] [address] | + + + | Home Phone [...] Team Providers + +------+ + | Care Used Car Lot Porter Name | Role | Phone | [...] + + | 03/07/ | Office | [facility] | [place], | SINUS BRADYCARDIA | | 2013 | Visit | CARDIOLOGY [address] | PARISA [place] [address] | (Primary Dx); | | | | [place], | [place], | Syncope; Symptomatic | | | | [place] [address] | [place] [address] | PVCs; Pacemaker - | | | | [phone] | [phone] | Medtronic - [id number] | | | [...] Sanchez Date: March 07, 2014 : 1960 Dehydrator Operator: Kailey Pruitt RN Device Screw Machine Adjuster Automatic:Medtronic Sense (mV) Impedance (?) Capture (V) Capture (ms) A Lead >5.60 402 1.500 0.09 RV Lead >31.36 522 2.00 0.09 LV Lead Battery Impedance (?): 528 Battery Voltage (V): 2.79 OR Interval (ms): 147 AR Interval (ms): 217 VA Conduction: Mode Switch Events: 0 % of time: 0 -INVENTORY CONTROL ASSISTANT: <0.1% AP-INVENTORY CONTROL ASSISTANT: 0.1% -VS: 23.8% AP-VS: 76.1% INVENTORY CONTROL ASSISTANT: Magnetic Rate: 85 LINDA: 65 LEAH: Current [...] Pruitt RN 03/07/2014 12:00 Janeen Mccollum [place] GOVERNMENT INSTRUCTOR - 03/07/2014 11:07 AM PDT PATIENT NAME: [...] headaches. He paulino d been seen at [facility] a couple times with chest pain and [...] needed for Chest pain. 25 tablet 12 [place]-3 Fatty Acids (SALMON OIL-1000 PO) CAPS, one [...] Sanchez Date: March 07, 2014 : 1960 Dehydrator Operator: Kailey Pruitt RN Device Screw Machine Adjuster Automatic:Folloze Sense (mV) Impedance (?) Capture (V) Capture (ms) A Lead >5.60 402 1.500 0.09 RV Lead >31.36 522 2.00 0.09 LV Lead Battery Impedance (?): 528 Battery Voltage (V): 2.79 OR Interval (ms): 147 AR Interval (ms): 217 VA Conduction: Mode Switch Events: 0 % of time: 0 -INVENTORY CONTROL ASSISTANT: <0.1% AP-INVENTORY CONTROL ASSISTANT: 0.1% -VS: 23.8% AP-VS: 76.1% INVENTORY CONTROL ASSISTANT: Magnetic Rate: 85 LINDA: 65 LEAH: Current [...] attenuation cannot completely be ruled out. [facility]. [facility] 12/25/13, shows noncritical coronary artery [...] pain. He is in class II of [place] Heart Association functional class . There are [...] ventricular arrhythmia performed by Dr. Gambino at [facility] on 01/30/2013. Patient had spontaneous [...] to go back in 3 days to [place] for an attempt of ablation under general [...] palpitations.. He is in class II of [place] Heart Ass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 There are no [...] bring in his blood pressure logs from [facility] e 5. Lightheadedness and dizziness/ presyncope: [...] made to ensure accuracy; however, inadvertent computerized operations planner errors may be pre sent. Electronically signed [...] | | | | | | [place] [address] | | | | | | [phone] | | | | | | | | +--------+---------+ + + + | 01/01/ | Office | Cardiology | Silvia, | | | 2019 | Visit | | PARISA Vernon [address] | | | | | | [place] | | | | | | [place] [address] | | | | | | [phone] | | | | | | | [...] 07, 2014 : | | | 1960 Dehydrator Operator: Kailey Pruitt RN Device | | | Screw Machine Adjuster Automatic:Folloze Sense (mV) Impedance (?) Capture (V) | | | Capture (ms) A Lead >5.60 402 1.500 0.09 RV Lead >31.36 522 2.00 | | | 0.09 LV Lead Battery Impedance (?): 528 Battery Voltage (V): | | | 2.79 OR Interval (ms): 147 AR Interval (ms): 217 VA Conduction: | | | Mode Switch Events: 0 % of time: 0 -INVENTORY CONTROL ASSISTANT: <0.1% AP-INVENTORY CONTROL ASSISTANT: 0.1% -VS: | | | 23.8% AP-VS: 76.1% INVENTORY CONTROL ASSISTANT: Magnetic Rate: 85 LINDA: 65 LEAH: Current [...] | | | signed by: Kailey Pruitt, RN 03/07/2014 12:00 | | + + + + + | Procedure Note | + + | Kailey Pruitt RN - 03/07/2014 12:01 PM PDT Formatting of this note might be | | different from the original. DEVICE INTERROGATIONName: Moe Sanchez | | Date: March 07, 2014DOB: 1960 Dehydrator Operator: Kailey Pruitt RN Device | | Screw Machine Adjuster Automatic:InfoGintronic Sense (mV) Impedance (?) Capture (V) Capture (ms) A Lead >5.60 | | 402 1.500 0.09 RV Lead >31.36 522 2.00 0.09 LV Lead Battery Impedance (?): 528 | | Battery Voltage (V): 2.79 OR Interval (ms): 147 AR Interval (ms): 217 VA Conduction: | | Mode Switch Events: 0 % of time: 0 -INVENTORY CONTROL ASSISTANT: <0.1% AP-INVENTORY CONTROL ASSISTANT: 0.1% -VS: 23.8% AP-VS: 76.1% | | INVENTORY CONTROL ASSISTANT: Magnetic Rate: 85 LINDA: 65 LEAH: Current [...] office. Device interrogation due in 6 months. Sandya marcello signed by: Kailey Pruitt RN 03/07/2014 12:00 [...]
--- OUTSIDE RECORDS SUMMARY | ~2019-12-06 | XMS | Encounter Summary ---
Demographics + + + | Address | [address] [place] [address] [address] | | | [place] [address] | + + + | Home Phone | | + + + | Preferred Language | Unknown | + + + | Marital Status | | + + + | Rastafarian Affiliation | Unknown | + + + | Race | White | + + + | Ethnic Group | Not or | + + + Author + + + | Author | [facility] | + + + | Organization | [facility] | + + + | Address | Unknown | + + + | Phone | Unavailable | + + + Support + + + + + | Name | Relationship | Address | Phone | + + + + + | Rachel Valencia | [address] | [place] | | | | | [address] | | + + + + + Care Team Providers + +------+ + | Care Property Insurance Agent Name | Role | Phone | [...] | [facility] [address] | MD [address] | | | | | [address] | [facility] [place] | | | | | Mailcode: Center | [address] | | | | | for Health and | [phone] | | | | | [facility], [facility] [address] | | | | | | [place], [place] | | | | | | [address] | | | | | | [phone] | | | +--------+ + + + [...]
--- OUTSIDE RECORDS SUMMARY | ~2019-12-06 | XMS | Encounter Summary ---
Demographics + + + | Address | [address] | | | [place] [address] | + + + | Home Phone [...] Providers + +------+ + | Care Room Designer Name | Role | Phone | [...] 2019 | | GASTROENTEROLOGY | [address], [place] | | | | | [address] [place] | [address] [place], [place] | | | | | [address] [place], [place] | [address] | | | | | [address] | | | | | | [phone] | | | +--------+ + + + [...] | | | | | [place] [address] | | | | | | [phone] | | | | | | | | +--------+---------+ + + + | 01/01/ | Office | Cardiology | Silvia, | | | 2019 | Visit | | PARISA Vernon [address] | | | | | | [place], | | | | | | [place] [address] | | | | | | [phone] | | | | | | | | +--------+---------+ + + + documented as of this encounter Visit Diagnoses Not on filedocumented in this encounter"
--- OUTSIDE RECORDS SUMMARY | ~2019-12-06 | XMS | Encounter Summary ---
Demographics + + + | Address | [address] | | | [place] [address] | + + + | Home Phone [...] Team Providers + +------+ + | Care Electrologist Name | Role | Phone | + +------+ + PCP | Unavailable | + +------+ + Encounter Details +--------+ + + + + | Date | Type | Department | Care Team | Description | +--------+ + + + + | 05/28/ | [facility] | [facility] | Evan Gandara MD | | | 2008 | Encounter | MED CTR LABORATORY | [address] [facility] | | | | | [address] | [place] | | | | | [place] | [address] | | | | | [address] | | | | | | [phone] | | | +--------+ + + + [...] | | | | | [place] [address] | | | | | | [phone] | | | | | | | | +--------+---------+ + + + | 01/01/ | Office | Cardiology | [place]via, | | | 2020 | Visit | | PARISA [place] [address] | | | | | | [place], | | | | | | [place] [address] | | | | | | [phone] | | | | | | | | +--------+---------+ + + + documented as of this encounter Visit Diagnoses Not on filedocumented in this encounter"
--- OUTSIDE RECORDS SUMMARY | ~2019-12-06 | XMS | Encounter Summary ---
Demographics + + + | Address | [address] | | | [place] [address] | + + + | Home Phone [...] Providers + +------+ + | Care Pot Tender Name | Role | Phone | [...] 2019 | | GASTROENTEROLOGY | [address], [place] | Recommendations | | | | [address] [place] | [address] [place], [place] | | | | | [address] [place], [place] | [address] | | | | | [address] | | | | | | [phone] | | | +--------+ + + + [...] | | | | | [place] [address] | | | | | | [phone] | | | | | | | | +--------+---------+ + + + | 01/01/ | Office | Cardiology | [place]via, | | | 2019 | Visit | | PARISA [place] [address] | | | | | | [place] | | | | | | [place] [address] | | | | | | [phone] | | | | | | | | +--------+---------+ + + + documented as of this encounter Visit Diagnoses Not on filedocumented in this encounter"
--- OUTSIDE RECORDS SUMMARY | ~2019-12-06 | XMS | Encounter Summary ---
Demographics + + + | Address | [address] | | | [place] [address] | + + + | Home Phone [...] Providers + +------+ + | Care Materials Analyst Name | Role | Phone | [...] [address] [place] | | | | | [place], [place] | [address] | | | | | [address] | [place] [address] | | | | | [phone] | [phone] | | | | | | | [...] | | | | | | [place] [address] | | | | | | [phone] | | | | | | | | +--------+---------+ + + + | 01/01/ | Office | Cardiology | Silvia, | | | 2019 | Visit | | PARISA [place] [address] | | | | | | [place], | | | | | | [place] [address] | | | | | | [phone] | | | | | | | [...]
--- OUTSIDE RECORDS SUMMARY | ~2019-12-06 | XMS | Encounter Summary ---
Demographics + + + | Address | [address] | | | [place] [address] | + + + | Home Phone [...] Team Providers + +------+ + | Care General Administrator Name | Role | Phone | [...] Provider Unknown | | | | | [place], [place] | [phone] | | | | | [address] | | | | | | [phone] | | | +--------+ + + + [...] + + + +---------+ + + | [place]-3 Fatty | CAPS, one capsule by | [...] | | | | | | | #[id number], exp 07/2016 | | | | | [...] | | | | | [place] [address] | | | | | | [phone] | | | | | | | | +--------+---------+ + + + | 01/01/ | Office | Cardiology | Silvia, | | | 2019 | Visit | | PARISA [place] [address] | | | | | | [place] | | | | | | [place] [address] | | | | | | [phone] | | | | | | | [...]
--- OUTSIDE RECORDS SUMMARY | ~2019-12-06 | XMS | Encounter Summary ---
Demographics + + + | Address | [address] | | | [place] [address] | + + + | Home Phone [...] Team Providers + +------+ + | Care Isotope Technologist Name | Role | Phone | + +------+ + PCP | Unavailable | + +------+ + Encounter Details +--------+ + + + + | Date | Type | Department | Care Team | Description | +--------+ + + + + | 04/28/ | [facility] | [facility] | Jonathan, | | | 2008 | Encounter | MED CTR EMERGENCY | Martell Cr MD [address] | | | | | CENTER [address] | [place] | | | | | [place] | [place] [address] | | | | | [address] | [phone] | | | | | [phone] | | | +--------+ + + + [...] | | | | | [place], [place] [address] | | | | | | [phone] | | | | | | | | +--------+---------+ + + + | 01/01/ | Office | Cardiology | [place]via, | | | 2020 | Visit | | PARISA [place] [address] | | | | | | [place], | | | | | | [place] [address] | | | | | | [phone] | | | | | | | | +--------+---------+ + + + documented as of this encounter Visit Diagnoses Not on filedocumented in this encounter"
--- OUTSIDE RECORDS SUMMARY | ~2019-12-06 | XMS | Encounter Summary ---
Demographics + + + | Address | [address] | | | [place] [address] | + + + | Home Phone [...] Team Providers + +------+ + | Care Nuisance Animal Damage Control Agent Name | Role | Phone | + +------+ + | Kirk French MD | PCP | | + +------+ + Encounter Details +--------+ + + + + | Date | Type | Department | Care Team | Description | +--------+ + + + + | 07/21/ | Hospital | [facility] | Daljit Singletary, | | | 2018 | Encounter | MED CTR NUCLEAR | MD [address] | | | | | MEDICINE [address] | [place], | | | | | [place], | [place] [address] | | | | | [place] [address] | [phone] | | | | | [phone] | | | +--------+ + + + [...] + + + +---------+ + + | Pony-3 Fatty | CAPS, one capsule by | [...] | | | | | | [place] [address] | | | | | | [phone] | | | | | | | | +--------+---------+ + + + | 01/01/ | Office | Cardiology | [place], | | | 2019 | Visit | | PARISA [place] [address] | | | | | | [place], | | | | | | [place] [address] | | | | | | [phone] | | | | | | | [...] | | | | | | Starting [facility] 07/21/18 at 1224, For | | | | | | | 1 dose, Nuclear Medicine | | | | | | + +--------+ + +------+------+ +---+---+ | | | +---+---+ documented in this encounter"
--- OUTSIDE RECORDS SUMMARY | ~2019-12-06 | XMS | Encounter Summary ---
Demographics + + + | Address | [address] | | | [place] [address] | + + + | Home Phone [...] Providers + +------+ + | Care Field Hockey And Lacrosse Coach Name | Role | Phone | + +------+ + | Kirk French MD | PCP | | + +------+ + Encounter Details +--------+ + + + + | Date | Type | Department | Care Team | Description | +--------+ + + + + | 01/18/ | Hospital | [facility] GENERIC IP | Conversion | Diagnosis unknown | | 2017 | Encounter | CONVERSION [address] | Transaction, | | | | | [address] | Provider Unknown | | | | | [place], [place] | [phone] | | | | | [address] | | | | | | [phone] | | | +--------+ + + + [...] + + + +---------+ + + | [place]-3 Fatty | CAPS, one capsule by [...] | | | | | [place] [address] | | | | | | [phone] | | | | | | | | +--------+---------+ + + + | 01/01/ | Office | Cardiology | [place], | | | 2019 | Visit | | PARISA [place] [address] | | | | | | [place], | | | | | | [place] [address] | | | | | | [phone] | | | | | | | [...]
--- OUTSIDE RECORDS SUMMARY | ~2019-12-06 | XMS | Encounter Summary ---
Demographics + + + | Address | [address] | | | [place] [address] | + + + | Home Phone [...] Providers + +------+ + | Care Pot Room Tapper Name | Role | Phone | + [...] Refill | | 2012 | | MEDICINE [facility] | DO [address] | | | | | [address] | [place] | | | | | [place] | [address] | | | | | [address] | | | | | | [phone] | | | +--------+--------+ + + + [...] | | | | | [place] [address] | | | | | | [phone] | | | | | | | | +--------+---------+ + + + | 01/01/ | Office | Cardiology | [place], | | | 2019 | Visit | | PARISA [place] [address] | | | | | | [place], | | | | | | [place] [address] | | | | | | [phone] | | | | | | | | +--------+---------+ + + + documented as of this encounter Visit Diagnoses Not on filedocumented in this encounter"
--- OUTSIDE RECORDS SUMMARY | ~2019-12-06 | XMS | Encounter Summary ---
Demographics + + + | Address | [address] | | | [place] [address] | + + + | Home Phone [...] Providers + +------+ + | Care Plate Grinder Name | Role | Phone | [...] Refill | | 2014 | | MEDICINE [facility] | DO [address] | | | | | [address] | [place] | | | | | [place], [place] | [address] | | | | | [address] | | | | | | [phone] | | | +--------+--------+ + + + [...] | | | | | [place] [address] | | | | | | [phone] | | | | | | | | +--------+---------+ + + + | 01/01/ | Office | Cardiology | [place], | | | 2019 | Visit | | PARISA [place] [address] | | | | | | [place], | | | | | | [place] [address] | | | | | | [phone] | | | | | | | | +--------+---------+ + + + documented as of this encounter Visit Diagnoses Not on filedocumented in this encounter"
--- OUTSIDE RECORDS SUMMARY | ~2019-12-06 | XMS | Encounter Summary ---
Demographics + + + | Address | [address] | | | [place] [address] | + + + | Home Phone [...] Team Providers + +------+ + | Care Fiberline Supervisor Name | Role | Phone | + +------+ + PCP | Unavailable | + +------+ + Encounter Details +--------+ + + + + | Date | Type | Department | Care Team | Description | +--------+ + + + + | [facility] | Geri Angel, | | | 2011 | Encounter | MED CTR XRAY [address] | REGISTERED DIETICIAN [address] | | | | | [place] | St [place] | | | | | [place] [address] | [address] | | | | | [phone] | | | +--------+ + + + [...] | | | | | [place] [address] | | | | | | [phone] | | | | | | | | +--------+---------+ + + + | 01/01/ | Office | Cardiology | Silvia, | | | 2019 | Visit | | PARISA Vernon [address] | | | | | | [place], | | | | | | [place] [address] | | | | | | [phone] | | | | | | | [...] Performed At | + + + | [facility] Diagnostic Imaging Department | [facility] | | [address] [facility] | [facility] | | LEFT HEART CATHETERIZATION | [...] was taken to | | | Cardiac Core Composer Feeder. He was prepared and draped in the usual fashion | | | under a sterile technique and local anesthesia, percutaneous access | | | was obtained using #6- Djiboutian sheath in the right femoral artery. | | | Right heart cath was not performed in this patient. Left | | | ventriculography was performed using #6-Djiboutian pigtail catheter. | | | The selective coronary angiography were then performed in several | | | sagittal and oblique projection using the 6-Djiboutian JL 4 and #6 Djiboutian | | | 3DRC diagnostic catheters. 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 He was prepared and draped in the usual fashion under a sterile | | technique and local anesthesia, percutaneous access was obtained using #6- | | Djiboutian sheath in the right femoral artery. Right heart cath was not performed | | in this patient. Left ventriculography was performed using #6-Djiboutian pigtail | | catheter. The selective coronary angiography were then performed in several | | sagittal and oblique projection using the 6-Djiboutian JL 4 and #6 Djiboutian 3DRC | | diagnostic catheters. 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
--- OUTSIDE RECORDS SUMMARY | ~2019-12-06 | XMS | Encounter Summary ---
Demographics + + + | Address | [address] | | | [place] [address] | + + + | Home Phone [...] Providers + +------+ + | Care Social Security Specialist Name | Role | Phone [...] | | | | Sinoatrial | Geri, ADMISSIONS GATE ATTENDANT | [address] | | | | | node | [address] | [place], | | | | | dysfunction | [place] | [place] | | | | | (HCC) | [place], [place] | [address] | | | | | Coronary | [address] | Phone: | | | | | artery | Phone: | [phone] | | | | | disease | [phone] | Fax: | | | | | involving | Fax: | [phone] | | | | | [place] | [phone] | | | | | | coronary | | | | | | | artery of | | | | | | | [place] heart | | | | | | [...] | | | | | | Complete [place] | | | | | | | ECHO HEART | | | | | | | XTHORACIC,[place] | | | | | | | MPLETE W | | | | | | | DOPPLER [place] | | | | | | | [...] | | | | Sinoatrial | Geri, ADMISSIONS GATE ATTENDANT | [address] | | | | | node | [address] | [place], | | | | | dysfunction | [place] | [place] | | | | | ([facility]) | [place], [place] | [address] | | | | | Coronary | [address] | Phone: | | | | | artery | Phone: | [phone] | | | | | disease | [phone] | Fax: | | | | | involving | Fax: | [phone] | | | | | [place] | [phone] | | | | | | coronary | | | | | | | artery of | | | | | | | [place] heart | | | | | | [...] | | | | | | Complete [place] | | | | | | | ECHO HEART | | | | | | | XTHORACIC,[place] | | | | | | | MPLETE W | | | | | | | DOPPLER [place] | | | | | | | [...] + + + + | 06/16/ | [facility] | [facility] | Geri Angel, | Sinoatrial node | | 2016 | Encounter | MED CTR ECHO [address] | ADMISSIONS GATE ATTENDANT [address] | dysfunction (HCC) | | | | [address] [place] | St [place], [place] | with symptomatic | | | | [place] [address] | [address] | bradycardia; | | | | [phone] | | Coronary artery | | | | | Juvenal Blake, | disease involving | | | | | Technologist | [place] coronary | [...] + + + +---------+ + + | [place]-3 Fatty | CAPS, one capsule by | [...] | | | | | | [address] | | | | | | [place] [address] | | | | | | [phone] | | | | | | | | +--------+---------+ + + + | 01/01/ | Office | Cardiology | Silvia, | | | 2019 | Visit | | PARISA Vernon [address] | | | | | | [place], | | | | | | [place] [address] | | | | | | [phone] | | | | | | | [...] Patient Name VICTOR HUGO NGUYEN | | [place] Room Number SARAH Patient | [facility] | | [id number] Date of Study 06/16/2016 Number | - IMAGING | | Visit Number [id number] | | | Referring Physician JOSE ARMANDO GARCIA Number Date of 1960 | | | 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 | [place] | [phone] | | [facility] | | [address] | | | - IMAGING | | [...]
--- OUTSIDE RECORDS SUMMARY | ~2019-12-06 | XMS | Encounter Summary ---
Demographics + + + | Address | [address] [place] [address] [address] | | | [place] [address] | + + + | Home Phone [...] [place] | | | | | [address] | | + + + + + Care Team Providers + +------+ + | Care Development Technical Lead Name | Role | Phone | [...] as of this encounter Progress Notes Interface, Refund Specialist In - 07/19/2006 3:05 AM PDTCLINIC DATE: 06/13/2002 [facility] REFERRING PHYSICIAN: Eugene Vera D.O. [address] [place] [address] Mr. Sanchez is a new patient. He [...] proceed. Martell Allen M.D. ELIZABETH / KATTY [id number] / [id number] / [id number] / [id number] cc: Eugene Vera D.O. [address] [place] [id number] signed by Interface, Refund Specialist In at 07/19/2006 3:0 5 AM PDTdocumented in this encounter Plan of Treatment Not on filedocumented as of this encounter Visit Diagnoses Not on filedocumented in this encounter
--- OUTSIDE RECORDS SUMMARY | ~2019-12-06 | XMS | Encounter Summary ---
Demographics + + + | Address | [address] | | | [place] [address] | + + + | Home Phone [...] Providers + +------+ + | Care Cutter And Paster Press Clippings Name | Role | Phone | + +------+ + | Kirk French MD | PCP | | + +------+ + Encounter Details +--------+ + + + + | Date | Type | Department | Care Team | Description | +--------+ + + + + | 08/10/ | Orders Only | [facility] | [place], | Mixed hyperlipidemia | | 2016 | | MED CTR LABORATORY | PARISA Vernon [address] | (Primary Dx) | | | | [address] [place] | [place], | | | | | [place] | [place] [address] | | | | | [address] | [phone] | | | | | [phone] | | | +--------+ + + + [...] | | | | | | [place] [address] | | | | | | [phone] | | | | | | | | +--------+---------+ + + + | 01/01/ | Office | Cardiology | Silvia, | | | 2019 | Visit | | PARISA Vernon [address] | | | | | | [place], | | | | | | [place] [address] | | | | | | [phone] | | | | | | | [...]
--- OUTSIDE RECORDS SUMMARY | ~2019-12-06 | XMS | Encounter Summary ---
Demographics + + + | Address | [address] | | | [place] [address] | + + + | Home Phone [...] Team Providers + +------+ + | Care Immigration Judge Name | Role | Phone | + [...] + + | 11/03/ | Refill | [facility] | Kirk French | Medication Refill | | 2019 | | [facility] | MD [address] | | | | | [facility] [address] | | | | | [address] | [place] [address] | | | | | [place], [place] | [phone] | | | | | [address] | | | | | | [phone] | | | +--------+--------+ + + + [...] | | | | | [place] [address] | | | | | | [phone] | | | | | | | | +--------+---------+ + + + | 01/01/ | Office | Cardiology | Silvia, | | | 2019 | Visit | | PARISA Vernon [address] | | | | | | [place] | | | | | | [place] [address] | | | | | | [phone] | | | | | | | | +--------+---------+ + + + documented as of this encounter Visit Diagnoses Not on filedocumented in this encounter"
--- OUTSIDE RECORDS SUMMARY | ~2019-12-06 | XMS | Encounter Summary ---
Demographics + + + | Address | [address] | | | [place] [address] | + + + | Home Phone [...] Team Providers + +------+ + | Care Explosives Operator Name | Role | Phone | [...] | MED CTR EXTERNAL | MD [address] | | | | | IMAGING | Jay [place] | | | | | [phone] | [place] [address] | | +--------+ + + + + [...] | | | | | [place] [address] | | | | | | [phone] | | | | | | | | +--------+---------+ + + + | 01/01/ | Office | Cardiology | Silvia, | | | 2020 | Visit | | PARISA Vernon [address] | | | | | | [place], | | | | | | [place] [address] | | | | | | [phone] | | | | | | | [...] for comparison only - no result from [facility]. | | + + + + +---------+ + + | Performing | Address | City/State/Zipcode | Phone Number | | Organization | | | | + +---------+ + + | [facility] | | | | + +---------+ + + documented in this encounter Visit Diagnoses Not on filedocumented in this encounter"
--- OUTSIDE RECORDS SUMMARY | ~2019-12-06 | XMS | Encounter Summary ---
Demographics + + + | Address | [address] | | | [place] [address] | + + + | Home Phone [...] Providers + +------+ + | Care Foundation Relations Manager Name | Role | Phone | [...] [address] | | | | | [place], | [place], | | | | | [place] [address] | [place] [address] | | | | | [phone] | [phone] | | | | | | | [...] | | | | | [place] [address] | | | | | | [phone] | | | | | | | | +--------+---------+ + + + | 01/01/ | Office | Cardiology | Silvia, | | | 2019 | Visit | | PARISA Vernon [address] | | | | | | [place], | | | | | | [place] [address] | | | | | | [phone] | | | | | | | | +--------+---------+ + + + documented as of this encounter Visit Diagnoses Not on filedocumented in this encounter"
--- OUTSIDE RECORDS SUMMARY | ~2019-12-06 | XMS | Encounter Summary ---
Demographics + + + | Address | [address] | | | [place] [address] | + + + | Home Phone [...] Team Providers + +------+ + | Care Bed And Breakfast Innkeeper Name | Role | Phone | + +------+ + PCP | Unavailable | + +------+ + Encounter Details +--------+ + + + + | Date | Type | Department | Care Team | Description | +--------+ + + + + | 09/12/ | Hospital | [facility] | | | | 1993 | Encounter | MED CTR EMERGENCY | | | | | | CENTER [address] | | | | | | [place] | | | | | | [address] | | | | | | [phone] | | | +--------+ + + + [...] | | | | | [place] [address] | | | | | | [phone] | | | | | | | | +--------+---------+ + + + | 01/01/ | Office | Cardiology | Silvia, | | | 2020 | Visit | | PARISA Vernon [address] | | | | | | [place], | | | | | | [place] [address] | | | | | | [phone] | | | | | | | | +--------+---------+ + + + documented as of this encounter Visit Diagnoses Not on filedocumented in this encounter"
--- OUTSIDE RECORDS SUMMARY | ~2019-12-06 | XMS | Encounter Summary ---
Demographics + + + | Address | [address] | | | [place] [address] | + + + | Home Phone [...] Team Providers + +------+ + | Care Mechanic Chief Name | Role | Phone | [...] | Telephone | [facility] [place] | [place], | Other (not feeling | | 2013 | | [place] [address] | PARISA Vernon [address] | [place]) | | | | [place], | [place], | | | | | [place] [address] | [place] [address] | | | | | [phone] | [phone] | | | | | | | [...] | | | | | [place] [address] | | | | | | [phone] | | | | | | | | +--------+---------+ + + + | 01/01/ | Office | Cardiology | Silvia, | | | 2019 | Visit | | PARISA Vernon [address] | | | | | | [place], | | | | | | [place] [address] | | | | | | [phone] | | | | | | | | +--------+---------+ + + + documented as of this encounter Visit Diagnoses Not on filedocumented in this encounter"
--- OUTSIDE RECORDS SUMMARY | ~2019-12-06 | XMS | Encounter Summary ---
Demographics + + + | Address | [address] | | | [place] [address] | + + + | Home Phone [...] Team Providers + +------+ + | Care Assembly Line Worker Name | Role | Phone | + +------+ + PCP | Unavailable | + +------+ + Encounter Details +--------+ + + + + | Date | Type | Department | Care Team | Description | +--------+ + + + + | 10/26/ | Hospital | [facility] | | | | 1994 | Encounter | MED CTR EMERGENCY | | | | | | CENTER [address] | | | | | | [place] | | | | | | [address] | | | | | | [phone] | | | +--------+ + + + [...] | | | | | [place] [address] | | | | | | [phone] | | | | | | | | +--------+---------+ + + + | 01/01/ | Office | Cardiology | [place]via, | | | 2020 | Visit | | PARISA Vernon [address] | | | | | | [place], | | | | | | [place] [address] | | | | | | [phone] | | | | | | | | +--------+---------+ + + + documented as of this encounter Visit Diagnoses Not on filedocumented in this encounter"
--- OUTSIDE RECORDS SUMMARY | ~2019-12-06 | XMS | Encounter Summary ---
Demographics + + + | Address | [address] | | | [place] [address] | + + + | Home Phone [...] Team Providers + +------+ + | Care Signal Helper Name | Role | Phone | [...] + | 02/27/ | Telephone | [facility] | [place], | Chest Pain (Patient | | 2013 | | CARDIOLOGY [address] | Janeen, CAD OPERATOR [address] | having chest pain) | | | | [place], | [place], | | | | | [place] [address] | [place] [address] | | | | | [phone] | [phone] | | | | | | | [...] | | | | | [place] [address] | | | | | | [phone] | | | | | | | | +--------+---------+ + + + | 01/01/ | Office | Cardiology | [place]via, | | | 2019 | Visit | | PARISA Vernon [address] | | | | | | [place], | | | | | | [place] [address] | | | | | | [phone] | | | | | | | | +--------+---------+ + + + documented as of this encounter Visit Diagnoses Not on filedocumented in this encounter"
--- OUTSIDE RECORDS SUMMARY | ~2019-12-06 | XMS | Encounter Summary ---
Demographics + + + | Address | [address] | | | [place] [address] | + + + | Home Phone [...] Providers + +------+ + | Care Dry Wall Sprayer Name | Role | Phone | [...] | | CARDIOLOGY [address] | Janeen DEPUTY SHERIFF [address] | | | | | [place], | [place], | | | | | [place] [address] | [place] [address] | | | | | [phone] | [phone] | | | | | | | [...] | | | | | [place] [address] | | | | | | [phone] | | | | | | | | +--------+---------+ + + + | 01/01/ | Office | Cardiology | [place]via, | | | 2019 | Visit | | PARISA Vernon [address] | | | | | | [place], | | | | | | [place] [address] | | | | | | [phone] | | | | | | | | +--------+---------+ + + + documented as of this encounter Visit Diagnoses Not on filedocumented in this encounter"
--- OUTSIDE RECORDS SUMMARY | ~2019-12-06 | XMS | Encounter Summary ---
Demographics + + + | Address | [address] | | | [place] [address] | + + + | Home Phone [...] Providers + +------+ + | Care Supervisor General Name | Role | Phone | [...] 2012 | | CARDIOLOGY [address] | DESIGN DRAFTSMAN [address] [place] | faxed) | | | | [place], | [place] [facility], [place] | | | | | [place] [address] | [address] | | | | | [phone] | | | +--------+ + + + [...] | | | | | [place] [address] | | | | | | [phone] | | | | | | | | +--------+---------+ + + + | 01/01/ | Office | Cardiology | [place]via, | | | 2019 | Visit | | PARISA Vernon [address] | | | | | | [place], | | | | | | [place] [address] | | | | | | [phone] | | | | | | | | +--------+---------+ + + + documented as of this encounter Visit Diagnoses Not on filedocumented in this encounter"
--- OUTSIDE RECORDS SUMMARY | ~2019-12-06 | XMS | Encounter Summary ---
Demographics + + + | Address | [address] | | | [place] [address] | + + + | Home Phone [...] Providers + +------+ + | Care Director Cost Name | Role | Phone | + [...] 2017 | | CARDIOLOGY [address] | MORTGAGE LOAN PROCESSOR [address] [place] | | | | | [place], | [place], [place] | | | | | [place] [address] | [address] | | | | | [phone] | | | +--------+--------+ + + + [...] 12/18/ | Office | Gastroenterology | Darin Ganhdi | | | 2019 | Visit | | MD Jacek [address] | | | | | | [address] | | | | | | [place] [address] | | | | | | [phone] | | | | | | | | +--------+---------+ + + + | 01/01/ | Office | Cardiology | [place], | | | 2019 | Visit | | PARISA Vernon [address] | | | | | | [place], | | | | | | [place] [address] | | | | | | [phone] | | | | | | | | +--------+---------+ + + + documented as of this encounter Visit Diagnoses Not on filedocumented in this encounter"
--- OUTSIDE RECORDS SUMMARY | ~2019-12-06 | XMS | Encounter Summary ---
Demographics + + + | Address | [address] | | | [place] [address] | + + + | Home Phone [...] Team Providers + +------+ + | Care Hydro Station Operator Name | Role | Phone | [...] | CARDIOLOGY [address] | [address] [place] | reprogramming/check | | | | [place], | [place], | DO NOT DELETE | | | | [place] [address] | [place] [address] | (Primary Dx); | | | | [phone] | [phone] | Sinoatrial node | | | | [...] | | | | | [place] [address] | | | | | | [phone] | | | | | | | | +--------+---------+ + + + | 01/01/ | Office | Cardiology | [place], | | | 2019 | Visit | | PARISA Vernon [address] | | | | | | [place] | | | | | | [place] [address] | | | | | | [phone] | | | | | | | [...]
--- OUTSIDE RECORDS SUMMARY | ~2019-12-06 | XMS | Encounter Summary ---
Demographics + + + | Address | [address] | | | [place] [address] | + + + | Home Phone [...] Providers + +------+ + | Care Fur Finisher Tailor Name | Role | Phone | + [...] + + | 12/21/ | Office | [facility] | [place], | Chest pain (Primary | | 2013 | Visit | CARDIOLOGY [address] | [place] [address] | Dx); Symptomatic | | | | [place], | [place], | [place]; | | | | [place] [address] | [place] [address] | Hyperlipidemia; | | | | [phone] | [phone] | Hypertension; | | | | | [...] this time to see a specialist in [place] and he was to follow up with [...] MOUTH EVERY DAY 30 table t 5 [place]-3 Fatty Acids (SALMON OIL-1000 PO) CAPS, one [...] to go back in 3 days to [place] for an attempt of ablation under general [...] tolic function, LVEF 65 to 70%. B. Zykis DDD permanent pacemaker implantation on 06/14/09 by [...] made to ensure accuracy; however, inadvertent computerized hotel dining room cashier errors may be pre sent. documented in this encounter Plan of Treatment +--------+---------+ + + + | Date | Type | Specialty | Care Team | Description | +--------+---------+ + + + | 12/18/ | Office | Gastroenterology | Darin Gandhi | | | 2019 | Visit | | MD Jacek [address] | | | | | | [address] [place] | | | | | | [place] [address] | | | | | | [phone] | | | | | | | | +--------+---------+ + + + | 01/01/ | Office | Cardiology | [place], | | | 2020 | Visit | | PARISA [place] [address] | | | | | | [place], | | | | | | [place] [address] | | | | | | [phone] | | | | | | | [...] of unspecified type of vessel, | | iliamna or graft | + + documented in this encounter
--- OUTSIDE RECORDS SUMMARY | ~2019-12-06 | XMS | Encounter Summary ---
Demographics + + + | Address | [address] | | | [place] [address] | + + + | Home Phone [...] Providers + +------+ + | Care Post Framer Name | Role | Phone | [...] | CARDIOLOGY [address] | [address] [place] | card ) | | | | [place], | [place], | | | | | [place] [address] | [place] [address] | | | | | [phone] | [phone] | | | | | | | [...] | | | | | [place] [address] | | | | | | [phone] | | | | | | | | +--------+---------+ + + + | 01/01/ | Office | Cardiology | [place], | | | 2019 | Visit | | PARISA [place] [address] | | | | | | [place], | | | | | | [place] [address] | | | | | | [phone] | | | | | | | | +--------+---------+ + + + documented as of this encounter Visit Diagnoses Not on filedocumented in this encounter"
--- OUTSIDE RECORDS SUMMARY | ~2019-12-06 | XMS | Encounter Summary ---
Demographics + + + | Address | [address] | | | [place] [address] | + + + | Home Phone [...] Team Providers + +------+ + | Care Communication Manager Name | Role | Phone | [...] CARDIOLOGY [address] | MD [address] [place] | Dx); SINUS | | | | [place], | [place], | [place] | | | | [place] [address] | [place] [address] | | | | | [phone] | [phone] | | | | | | | [...] | | | | | [place] [address] | | | | | | [phone] | | | | | | | | +--------+---------+ + + + | 01/01/ | Office | Cardiology | [place], | | | 2019 | Visit | | PARISA [place] [address] | | | | | | [place], | | | | | | [place] [address] | | | | | | [phone] | | | | | | | | +--------+---------+ + + + documented as of this encounter Visit Diagnoses + + | Diagnosis | + + | Chest pain - Primary Chest pain, unspecified | + + | SINUS BRADYCARDIA Sinoatrial node dysfunction | + + documented in this encounter
--- OUTSIDE RECORDS SUMMARY | ~2019-12-06 | XMS | Encounter Summary ---
Demographics + + + | Address | [address] | | | [place] [address] | + + + | Home Phone [...] Team Providers + +------+ + | Care Investigator Fraud Name | Role | Phone | + [...] | 2018 | Changes | GASTROENTEROLOGY | Comic Artist | | | | | [address] [facility] | | | | | | [address] [place] | | | | | | [address] | | | | | | [phone] | | | +--------+ + + + [...] | | | | | | [place] [address] | | | | | | [phone] | | | | | | | | +--------+---------+ + + + | 01/01/ | Office | Cardiology | [place], | | | 2019 | Visit | | PARISA [address] | | | | | | [place], | | | | | | [place] [address] | | | | | | [phone] | | | | | | | | +--------+---------+ + + + documented as of this encounter Visit Diagnoses Not on filedocumented in this encounter"
--- OUTSIDE RECORDS SUMMARY | ~2019-12-06 | XMS | Encounter Summary ---
Demographics + + + | Address | [address] | | | [place] [address] | + + + | Home Phone [...] Providers + +------+ + | Care Administrative And Program Specialist Name | Role | Phone [...] [address] | | | | | | [place], [place] | (Fax) | | | | | [address] | | | | | | [phone] | | | +--------+ + + + [...] | | | | | [place] [address] | | | | | | [phone] | | | | | | | | +--------+---------+ + + + | 01/01/ | Office | Cardiology | Silvia, | | | 2020 | Visit | | PARISA Vernon [address] | | | | | | [place], | | | | | | [place] [address] | | | | | | [phone] | | | | | | | | +--------+---------+ + + + documented as of this encounter Visit Diagnoses Not on filedocumented in this encounter"
--- OUTSIDE RECORDS SUMMARY | ~2019-12-06 | XMS | Encounter Summary ---
Demographics + + + | Address | [address] | | | [place] [address] | + + + | Home Phone [...] Providers + +------+ + | Care Reliability Technician Name | Role | Phone | [...] + + | 06/06/ | Office | [facility] | Silvia, | Essential | | 2019 | Visit | CARDIOLOGY [address] | PARISA Vernon [address] | hypertension | | | | [place], | [place], | (Primary Dx); | | | | [place] [address] | [place] [address] | Sinoatrial node | | | | [phone] | [phone] | dysfunction (HCC) | | | | | | with symptomatic | | | | | | bradycardia; | | | | | | Symptomatic PVCs; | | | | | | Tachycardia; | | | | | | Coronary artery | | | | | | disease involving | | | | | | menominee coronary | | | | | | artery of menominee | | | | | | heart [...] encounter Patient Instructions Patient Instructions Julia Allen, Cassandra Consultant - 06/06/2019 2:15 PM PDT1. Take a [...] of -critical coronary artery dise ase involving menominee coronary artery of menominee heart without angina pectoris, essential hype rtension, [...] was seen in the emergency department at [facility] in [place] due to chest pain, no medication changes at that time. On 06/02/2019 he was [facility] with chest pain, irregular heart bet [...] Preventative health care Coronary artery disease involving menominee coronary artery of menominee heart without angina pectoris Cannabis abuse, daily [...] 3RD DOSE, CALL 911 100 tablet 3 Sage-3 Fatty Acids (SALMON OIL-1000 PO) CAPS, one capsule by mouth daily twice daily ondansetron (ZOFRAN ODT) 4 mg disintegrating tablet Take 4 mg by mouth every 8 hours as needed for Nausea. ONE TOUCH DELICA LANCETS [facility] Check glucose as needed for hypoglycemia 100 [...] RESULTS reviewed during visit today primarily from [facility]: LIPID Lab Results Component Value [...] BNP 48 06/02/2019 I reviewed records from [facility] for emergency department visit o n 06/02/2019 which is summarized in the HPI. RESULTS- I reviewed reports from [facility]: Ct Abdomen Pelvis W Contrast Result [...] ASSESSMENT: 1. Non-critical Coronary artery disease involving menominee coronary artery of menominee heart [facility] angina pectoris: A.Normal exercise sestamibi [...] performed by Dr Juan Diego Gambino at [facility] on 01/30/2013.Patient had spontaneous [...] to go back in 3 days to [place] for an attempt of ablation under general [...] a normal stable device function. Estimated remaining [facility] taylor longevity is 3.5 years. [...] visit, or sooner with concerns. Julia Clemente, Cassandra Consultant am acting as a scribe on behalf of, and in the presenc e of PARISA Lomas. - Reji Church 06/06/2019 15:10 Janeen Clemente ARNP, personally performed the services described in this documentati on, as scribed in my presence and it is both accurate and complete. -PARISA Lomas 06/06/2019 Portions of this chart may have been created with [employer] voice recognition software. Occasi onal wrong-word or [...] | | | | | [place] [address] | | | | | | [phone] | | | | | | | | +--------+---------+ + + + | 01/01/ | Office | Cardiology | Silvia, | | | 2019 | Visit | | PARISA Vernon [address] | | | | | | [place] | | | | | | [place] [address] | | | | | | [phone] | | | | | | | [...] MD | | | | | | ([id number]) on 06/06/2019 | | | | | [...] + + | Coronary artery disease involving menominee coronary artery of menominee heart without | | angina pectoris | + + | Syncope, unspecified syncope type | + + | Ascending thoracic aortic aneurysm (HCC) Thoracic aneurysm without mention of rupture | + + | Hyperlipidemia, mixed Mixed hyperlipidemia | + + documented in this encounter
--- OUTSIDE RECORDS SUMMARY | ~2019-12-06 | XMS | Encounter Summary ---
Demographics + + + | Address | [address] | | | [place] [address] | + + + | Home Phone [...] Team Providers + +------+ + | Care Eap Specialist Name | Role | Phone | [...] [address] | | | | | [address] | [place] | | | | | [phone] | [address] | | | | | | | [...] | | | | | [place] [address] | | | | | | [phone] | | | | | | | | +--------+---------+ + + + | 01/01/ | Office | Cardiology | Silvia, | | | 2019 | Visit | | PARISA Vernon [address] | | | | | | [place], | | | | | | [place] [address] | | | | | | [phone] | | | | | | | | +--------+---------+ + + + documented as of this encounter Visit Diagnoses Not on filedocumented in this encounter"
--- OUTSIDE RECORDS SUMMARY | ~2019-12-06 | XMS | Encounter Summary ---
Demographics + + + | Address | [address] | | | [place] [address] | + + + | Home Phone [...] Providers + +------+ + | Care Health Safety Instructor Name | Role | Phone | [...] Provider Unknown | | | | | [place], [place] | [phone] | | | | | [address] | | | | | | [phone] | | | +--------+ + + + [...] | | | | | [place] [address] | | | | | | [phone] | | | | | | | | +--------+---------+ + + + | 01/01/ | Office | Cardiology | Silvia | | | 2019 | Visit | | PARISA Vernon [address] | | | | | | [place] | | | | | | [place] [address] | | | | | | [phone] | | | | | | | [...]
--- OUTSIDE RECORDS SUMMARY | ~2019-12-06 | XMS | Encounter Summary ---
Demographics + + + | Address | [address] | | | [place] [address] | + + + | Home Phone [...] Team Providers + +------+ + | Care Steamfitter Supervisor Name | Role | Phone | + +------+ + PCP | Unavailable | + +------+ + Encounter Details +--------+ + + + + | Date | Type | Department | Care Team | Description | +--------+ + + + + | 10/09/ | [facility] | [facility] | Jonathan, | | | 2008 | Encounter | MED CTR EMERGENCY | Martell Cr MD [address] | | | | | CENTER [address] | [place] | | | | | [place] | [place] [address] | | | | | [address] | [phone] | | | | | [phone] | | | +--------+ + + + [...] | | | | | [place], [place] [address] | | | | | | [phone] | | | | | | | | +--------+---------+ + + + | 01/01/ | Office | Cardiology | Silvia, | | | 2020 | Visit | | PARISA Vernon [address] | | | | | | [place], | | | | | | [place] [address] | | | | | | [phone] | | | | | | | | +--------+---------+ + + + documented as of this encounter Visit Diagnoses Not on filedocumented in this encounter"
--- OUTSIDE RECORDS SUMMARY | ~2019-12-06 | XMS | Encounter Summary ---
Demographics + + + | Address | [address] | | | [place] [address] | + + + | Home Phone [...] + +------+ + | Care Social Work Specialist Name | Role | Phone | + +------+ + | Michael Amanda DO | PCP | | + +------+ + Encounter Details +--------+ + + + + | Date | Type | Department | Care Team | Description | +--------+ + + + + | 11/03/ | Emergency | [facility] | Eliel Calzada, | Palpitations; | | 2013 - | | MEDICAL [facility]ENTER | MD Chiquis JOHNSON | Atypical chest pain | | | | EMERGENCY CENTER | [place] [facility] | | | 11/04/ | | [address] | [address] | | | 2013 | | [place], [place] | | | | | | [address] | | | | | | [phone] | | | +--------+ + + + [...] + + + +---------+ + + | Lena-3 Fatty | CAPS, one capsule by | [...] | | | | | [place] [address] | | | | | | [phone] | | | | | | | | +--------+---------+ + + + | 01/01/ | Office | Cardiology | Silvia, | | | 2019 | Visit | | PARISA Vernon [address] | | | | | | [place], | | | | | | [place] [address] | | | | | | [phone] | | | | | | | [...] Conversion - 07/07/2019 10:30 PM PDT PINA Jaimee JULIANNA CHEST 2 VIEW FRONTAL | | AND DBZXRXI8411/03/2014 11:56 PM History: 54 years. Male. Acute [...] EXTERNAL | | | | performed at [facility];888 | | LAB | | | | [address] | | | | | | [address] | | | | + + + + + -+ | RED CELL | 4.97Comment: Testing | 4.20 - 5.70 | EXTERNAL | | | COUNT | performed at [facility];888 | M/uL | LAB | | | | [address];[place] | | | | | | [address] | | | | + + + + + -+ | Hgb | 16.8Comment: Testing | 13.2 - 17.0 | EXTERNAL | | | | performed at [facility];888 | g/dL | LAB | | | | [address];[place] | | | | | | [address] | | | | + + + + + -+ | Hematocrit, | 48.2Comment: Testing | 39.0 - 50.0 % | EXTERNAL | | | POC | performed at [facility];888 | | LAB | | | | [address];[place] | | | | | | [address] | | | | + + + + + -+ | MCV | 97.1Comment: Testing | 80.0 - 100.0 fl | EXTERNAL | | | | performed at [facility];888 | | LAB | | | | [address];[place] | | | | | | [address] | | | | + + + + + -+ | MCH | 33.9Comment: Testing | 27.0 - 34.0 pg | EXTERNAL | | | | performed at [facility];888 | | LAB | | | | [address];[place] | | | | | | [address] | | | | + + + + + -+ | MCHC | 34.9Comment: Testing | 32.0 - 35.5 | EXTERNAL | | | | performed at [facility];888 | g/dL | LAB | | | | [address];[place] | | | | | | [address] | | | | + + + + + -+ | RDW-CV | 42.4Comment: Testing | 37 - 53 fl | EXTERNAL | | | | performed at [facility];888 | | LAB | | | | [address];[place] | | | | | | [address] | | | | + + + + + -+ | Platelet | 143 (L)Comment: Testing | 150 - 400 K/uL | EXTERNAL | | | Count | performed at [facility];888 | | LAB | | | Plasma | [address];[place] | | | | | | [address] | | | | + + + + + -+ | MPV | 9.0Comment: Testing | fl | EXTERNAL | | | | performed at [facility];888 | | LAB | | | | [address];[place] | | | | | | [address] | | | | + + + + + -+ | Differentia | AUTOMATEDComment: | | EXTERNAL | | | l Type | Testing performed at | | LAB | | | | C[address] | [address];[place] [address] | | | | + + + + + -+ | % Segmented | 61.6Comment: Testing | % | EXTERNAL | | | | performed at [facility];888 | | LAB | | | Neutrophils | [address];[place] | | | | | | [address] | | | | + + + + + -+ | % | 27.8Comment: Testing | % | EXTERNAL | | | Lymphocytes | performed at [facility];888 | | LAB | | | | [address];[place] | | | | | | [address] | | | | + + + + + -+ | % Monocytes | 8.7Comment: Testing | % | EXTERNAL | | | | performed at [facility];888 | | LAB | | | | [address];[place] | | | | | | [address] | | | | + + + + + -+ | % | 0.8Comment: Testing | % | EXTERNAL | | | Eosinophils | performed at [facility];888 | | LAB | | | | [address];[place] | | | | | | [address] | | | | + + + + + -+ | % Basophils | 1.1Comment: Testing | % | EXTERNAL | | | | performed at [facility];888 | | LAB | | | | [address];[place] | | | | | | [address] | | | | + + + + + -+ | Absolute | 5.4Comment: Testing | 1.9 - 7.4 K/uL | EXTERNAL | | | Segmented | performed at [facility];888 | | LAB | | | Neutrophils | [address];[place] | | | | | | [address] | | | | + + + + + -+ | Absolute | 2.4Comment: Testing | 1.0 - 3.9 K/uL | EXTERNAL | | | Lymphocytes | performed at [facility];888 | | LAB | | | | [address];[place] | | | | | | [address] | | | | + + + + + -+ | Absolute | 0.8Comment: Testing | 0 - 0.8 K/uL | EXTERNAL | | | Monocytes | performed at [facility];888 | | LAB | | | | [address];[place] | | | | | | [address] | | | | + + + + + -+ | Absolute | 0.1Comment: Testing | 0 - 0.5 K/uL | EXTERNAL | | | Eosinophils | performed at [facility];888 | | LAB | | | | [address];[place] | | | | | | [address] | | | | + + + + + -+ | Absolute | 0.1Comment: Testing | 0 - 0.1 K/uL | EXTERNAL | | | Basophils | performed at [facility];888 | | LAB | | | | [address];[place] | | | | | | [address] | | | | + + + + + -+ | RBC | SLIDE SCANNED, AGREES | | EXTERNAL | | | Morphology | WITH AUTOMATED | | LAB | | | | RESULTS.Comment: Testing | | | | | | performed at [facility];[address] | | | | | | [address];[place] | | | | | | [address] | | | | + + + + + -+ | Na | 140Comment: Testing | 135 - 143 | EXTERNAL | | | | performed at [facility];888 | mmol/L | LAB | | | | [address];[place] | | | | | | [address] | | | | + + + + + -+ | K | 3.9Comment: Testing | 3.5 - 4.9 | EXTERNAL | | | | performed at [facility];888 | mmol/L | LAB | | | | [address];[place] | | | | | | [address] | | | | + + + + + -+ | Cl | 107Comment: Testing | 99 - 109 mmol/L | EXTERNAL | | | | performed at [facility];888 | | LAB | | | | [address];[place] | | | | | | [address] | | | | + + + + + -+ | CO2 | 28Comment: Testing | 23 - 32 mmol/L | EXTERNAL | | | | performed at [facility];888 | | LAB | | | | [address];[place] | | | | | | [address] | | | | + + + + + -+ | Anion Gap | 9Comment: Testing | 5 - 20 mmol/L | EXTERNAL | | | | performed at [facility];888 | | LAB | | | | [address];[place] | | | | | | [address] | | | | + + + + + -+ | Glucose, | 97Comment: Testing | 65 - 99 mg/dL | EXTERNAL | | | Fasting | performed at [facility];888 | | LAB | | | | [address];[place] | | | | | | [address] | | | | + + + + + -+ | BUN | 14Comment: Testing | 8 - 25 mg/dL | EXTERNAL | | | | performed at [facility];888 | | LAB | | | | [address];[place] | | | | | | [address] | | | | + + + + + -+ | Creatinine | 0.98Comment: Testing | 0.70 - 1.30 | EXTERNAL | | | | performed at [facility];888 | mg/dL | LAB | | | | [address];[place] | | | | | | [address] | | | | + + + + + -+ | BUN/Creatin | 14Comment: Testing | | EXTERNAL | | | ine Ratio | performed at [facility];888 | | LAB | | | | [address];[place] | | | | | | [address] | | | | + + + + + -+ | Calcium | 8.8Comment: Testing | 8.5 - 10.2 | EXTERNAL | | | | performed at [facility];888 | mg/dL | LAB | | | | [address];[place] | | | | | | [address] | | | | + + + + + -+ | Protein, | 6.9Comment: Testing | 6.3 - 8.2 g/dL | EXTERNAL | | | Total | performed at [facility];888 | | LAB | | | | [address];[place] | | | | | | [address] | | | | + + + + + -+ | Albumin | 3.7Comment: Testing | 3.6 - 5.0 g/dL | EXTERNAL | | | | performed at [facility];888 | | LAB | | | | [address];[place] | | | | | | [address] | | | | + + + + + -+ | Globulin | 3.2Comment: Testing | 1.3 - 4.9 g/dL | EXTERNAL | | | | performed at [facility];888 | | LAB | | | | [address];[place] | | | | | | [address] | | | | + + + + + -+ | A/G Ratio | 1.2Comment: Testing | 1.0 - 2.4 | EXTERNAL | | | | performed at [facility];888 | | LAB | | | | [address];[place] | | | | | | [address] | | | | + + + + + -+ | Bilirubin | 0.9Comment: Testing | 0.1 - 1.5 mg/dL | EXTERNAL | | | Total | performed at [facility];888 | | LAB | | | | [address];[place] | | | | | | [address] | | | | + + + + + -+ | ALP, | 60Comment: Testing | 35 - 115 U/L | EXTERNAL | | | External | performed at [facility];888 | | LAB | | | | [address];[place] | | | | | | [address] | | | | + + + + + -+ | AST | 22Comment: Testing | 10 - 45 U/L | EXTERNAL | | | | performed at [facility];888 | | LAB | | | | [address];[place] | | | | | | [address] | | | | + + + + + -+ | ALT | 37Comment: Testing | 10 - 65 U/L | EXTERNAL | | | | performed at [facility];888 | | LAB | | | | [address];[place] | | | | | | [address] | | | | + + + [...] | | | | | | at [facility];[address];[place] [address] | | | | + + + + + -+ | CK, Total | 103Comment: Testing | 55 - 400 U/L | EXTERNAL | | | | performed at [facility];888 | | LAB | | | | [address];[place] | | | | | | [address] | | | | + + + [...] | | | | | performed at [facility];[address] | | | | | | [address];[place] | | | | | | [address] | | | | + + + + + -+ | aPTT, | 26Comment: Testing | 23 - 32 seconds | EXTERNAL | | | Patient | performed at [facility];888 | | LAB | | | | [address];[place] | | | | | | [address] | | | | + + + + + -+ | CK-MB | 2.9Comment: Testing | 0.5 - 3.6 ng/mL | EXTERNAL | | | | performed at [facility];[address] | | LAB | | | | [address];[place] | | | | | | [address] | | | | + + + [...] EXTERNAL | | | | performed at [facility];888 | uIU/mL | LAB | | | | [address];[place] | | | | | | [address] | | | | + + + [...] EXTERNAL | | | | performed at [facility];8 | | LAB | | | | [address];[place], [place] | | | | | | [address] | | | | + + + [...] EXTERNAL | | | | performed at [facility];888 | | LAB | | | | [address];[place] | | | | | | [address] | | | | + + + [...] | | | | | ONLY, -COMPUTER ([id number]), | | | | | | editor book Michelle Butcher | | | | | | (29) on 11/04/2014 | | | | | | 6:28:13 AM | | | | + + + + + + + + | Specimen | + + | | + + + + + | Narrative | Performed At | + + + | Historically converted procedure from [facility] environment | EXTERNAL LAB | + [...]
--- OUTSIDE RECORDS SUMMARY | ~2019-12-06 | XMS | Encounter Summary ---
Demographics + + + | Address | [address] | | | [place] [address] | + + + | Home Phone [...] Team Providers + +------+ + | Care Cytogenetic Technologist Name | Role | Phone | + +------+ + PCP | Unavailable | + +------+ + Encounter Details +--------+ + + + + | Date | Type | Department | Care Team | Description | +--------+ + + + + | 04/28/ | [facility] | [facility] | Jonathan, | | | 2008 | Encounter | MED CTR EMERGENCY | Martell Cr MD [address] | | | | | CENTER [address] | [place] | | | | | [place] | [place] [address] | | | | | [address] | [phone] | | | | | [phone] | | | +--------+ + + + [...] | | | | | [place], [place] [address] | | | | | | [phone] | | | | | | | | +--------+---------+ + + + | 01/01/ | Office | Cardiology | Silvia, | | | 2020 | Visit | | PARISA Vernon [address] | | | | | | [place], | | | | | | [place] [address] | | | | | | [phone] | | | | | | | | +--------+---------+ + + + documented as of this encounter Visit Diagnoses Not on filedocumented in this encounter"
--- OUTSIDE RECORDS SUMMARY | ~2019-12-06 | XMS | Encounter Summary ---
Demographics + + + | Address | [address] | | | [place] [address] | + + + | Home Phone [...] Team Providers + +------+ + | Care Scale And Skip Car Operator Name | Role | Phone [...] 2019 | | GASTROENTEROLOGY | [address], [place] | | | | | [address] [place] | [address] [place], [place] | | | | | [address] [place], [place] | [address] | | | | | [address] | | | | | | [phone] | | | +--------+ + + + [...] | | | | | [place] [address] | | | | | | [phone] | | | | | | | | +--------+---------+ + + + | 01/01/ | Office | Cardiology | Silvia, | | | 2019 | Visit | | PARISA Vernon [address] | | | | | | [place] | | | | | | [place] [address] | | | | | | [phone] | | | | | | | | +--------+---------+ + + + documented as of this encounter Visit Diagnoses Not on filedocumented in this encounter"
--- OUTSIDE RECORDS SUMMARY | ~2019-12-06 | XMS | Encounter Summary ---
Demographics + + + | Address | [address] | | | [place] [address] | + + + | Home Phone [...] Providers + +------+ + | Care Casino Beverage Server Name | Role | Phone | + [...] [place] | | | | | [place] | | [address] Phone: | | | | | CYSTO/URETER | | [phone] | | | | | O | | Fax: | | | | | W/LITHOTRIPS | | [phone] | | | | | Y &INDWELL [...] | | | | | [address] | [place] | | | | | [place] | [address] | | | | | [address] | | | | | | [phone] | | | +--------+ + + + [...] +----+---+ + + | | 0 | [place] | | | | 8 | 43-degrees | | | | 2 | | | | | 7 | | | +----+---+ + + | | 0 | First | | | | 8 | [address] | | | | 2 | | | | | 8 | | | +----+---+ + + | | 0 | [place] off | | | | 9 | [...] 04/13/19 1219 by | | eral | [id number] catheter system; | Dominga Steen RN | [...] | | | | | [place] [address] | | | | | | [phone] | | | | | | | | +--------+---------+ + + + | 01/01/ | Office | Cardiology | Silvia, | | | 2019 | Visit | | PARISA Vernon [address] | | | | | | [place] | | | | | | [place] [address] | | | | | | [phone] | | | | | | | [...] | | | | | CONTINUOUS, Starting [facility] 04/13/19 | | AM PDT | | | | | at 0700, TKO., Pre-op | | | | | | + +---------+ +---+---+---+ +---+---+ | | | +---+---+ + +-------+ +------+---+---+ | midazolam (VERSED) 1 mg/mL | Given | 04/13/20 | 2 mg | | | | injection Intravenous, PRN, | | 19 8:24 | | | | | Starting [facility] 04/13/19 at 0808, | | AM [...]
--- OUTSIDE RECORDS SUMMARY | ~2019-12-06 | XMS | Encounter Summary ---
Demographics + + + | Address | [address] | | | [place] [address] | + + + | Home Phone [...] Providers + +------+ + | Care Button Machine Operator Name | Role | Phone | + +------+ + | Kirk French MD | PCP | | + +------+ + Encounter Details +--------+---------+ + + + | Date | Type | Department | Care Team | Description | +--------+---------+ + + + | 09/26/ | Office | [facility] | Kirk French | Weight loss (Primary | | 2018 | Visit | [facility] | MD Bre[address] | Dx); Bipolar | | | | [facility] [address] | affective disorder, | | | | [address] | [place] [address] | remission status | | | | [place], [place] | [phone] | unspecified (HCC); | | | | [address] | | Mixed anxiety | | | | [phone] | | depressive disorder; | | | [...] [employer] Peptic ulcer disease Premature ventricular contraction [facility] health care 06/26/2013 LAST PSA:12/16/2010 RESULT:0.14 [...] CV LHC; Surgeon: Daljit Singletary MD; Location: [facility] CV LAB CARDIAC CATHERIZATION N/A 01/25/2019 Procedure: CV Cor Angio; Surgeon: Daljit Singletary MD; Location: [facility] CV LAB COLONOSCOPY N/A 12/24/2017 Procedure: COLONOSCOPY; Surgeon: Emmanuel Daniel MD; Location: [facility] MEDICAL PROCEDURE UNIT COLONOSCOPY N/A 01/05/2019 Procedure: COLONOSCOPY; Surgeon: Emmanuel Daniel MD; Location: [facility] MEDICAL PROCEDURE UNIT EGD 12/24/2017 HARDWARE [...] Procedure: EGD; Surgeon: Emmanuel Daniel MD; Location: [facility] MEDICAL PROCEDURE UNIT UPPER GASTROINTESTINAL ENDOSCOPY N/A 01/05/2019 Procedure: EGD; Surgeon: Emmanuel Daniel MD; Location: [facility] MEDICAL PROCEDURE UNIT URETEROSCOPY Left 04/13/2019 Procedure: Cystoscopy, Left ureteroscopy with laser lithotripsy, Left ureteral stent place ment; Surgeon: Matthew Uriarte MD; Location: [facility] MAIN OR VASECTOMY Social History Socioeconomic [...] ONE TABLET UNDER THE TONGUE EVERY 5 NH NUTES NEEDED FOR CHEST PAIN 250 tablet 0 Calvin-3 Fatty Acids (SALMON OIL-1000 PO) CAPS, one capsule by mouth daily twice daily ondansetron (ZOFRAN ODT) 4 mg disintegrating tablet Take 4 mg by mouth every 8 hours as needed for Nausea. ONE TOUCH DELICA LANCETS [facility] [...] PLT 169 06/02/2019 No results found for: [id number] No results found for: FOLATE No results [...] multiple ER visits Going again to [facility] tomorrow Already followed by [facility] [...] a month. We will defer to [facility], perhaps to have some sort of [...] | | | | | | [place] [address] | | | | | | [phone] | | | | | | | | +--------+---------+ + + + | 01/01/ | Office | Cardiology | Silvia, | | | 2019 | Visit | | [place] [address] | | | | | | [place] | | | | | | [place] [address] | | | | | | [phone] | | | | | | | [...]
--- OUTSIDE RECORDS SUMMARY | ~2019-12-06 | XMS | Encounter Summary ---
Demographics + + + | Address | [address] | | | [place] [address] | + + + | Home Phone [...] Team Providers + +------+ + | Care Bingo Cashier Name | Role | Phone | [...] + | 06/23/ | Office | [facility] | [place]via, | Ascending thoracic | | 2016 | Visit | CARDIOLOGY [address] | [place] [address] | aortic aneurysm | | | | [place], | [place], | ([facility]ER[facility]) (Primary Dx); | | | | [place] [address] | [place] [address] | Coronary artery | | | | [phone] | [phone] | disease involving | | | | | | [place] coronary | | | | | | artery of [place] | | | | | | heart [...] in office in 6 months. hgabby, Janeen, SLATE CUTTER - 06/23/2016 12:45 PM PDT PATIENT NAME: Moe Sanchez : 1960: AGE: 56 y.o. PRIMARY CARE: Kirk French MD OUTPATIENT FOLLOW UP VISIT Date of Service: 06/23/2016 HISTORY OF PRESENT ILLNESS: Moe Sanchez is a 56 y.o. 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 Non-critical Coronary artery disease involving [place] coronary artery of [place] heart [facility] angina pectoris: A. Normal exercise sestamibi [...] pain. He is in class I-II of [employer] n functional class. There are [...] arrhythmia performed by Dr. Gambino at [facility] on 01/30/2013. Patient had spontaneous [...] to go back in 3 days to [place] for an attempt of ablation under general [...] this chart may have been created with Ajaline voice recognition software. Occasi onal wrong-word or [...] | | | | | [place] [address] | | | | | | [phone] | | | | | | | | +--------+---------+ + + + | 01/01/ | Office | Cardiology | Silvia, | | | 2019 | Visit | | [place] [address] | | | | | | [place], | | | | | | [place] [address] | | | | | | [phone] | | | | | | | [...] the | | | | PDT | [place] coronary | results section. | | | | | artery of [place] | | | | | | heart [...] SYDNI | | | | | | ([id number]) on 06/23/2016 | | | | | [...] + + | Coronary artery disease involving [place] coronary artery of [place] heart without | | angina pectoris | [...]
--- OUTSIDE RECORDS SUMMARY | ~2019-12-06 | XMS | Encounter Summary ---
Demographics + + + | Address | [address] | | | [place] [address] | + + + | Home Phone [...] Team Providers + +------+ + | Care Raiser Helper Name | Role | Phone | [...] + | 10/04/ | Telephone | [facility] | Daljit Singletary, | Other (Records sent) | | 2012 | | CARDIOLOGY [address] | MD [address] [place] | | | | | [place], | [place], | | | | | [place] [address] | [place] [address] | | | | | [phone] | [phone] | | | | | | | [...] | | | | | [place] [address] | | | | | | [phone] | | | | | | | | +--------+---------+ + + + | 01/01/ | Office | Cardiology | Silvia, | | | 2019 | Visit | | [place] [address] | | | | | | [place], | | | | | | [place] [address] | | | | | | [phone] | | | | | | | | +--------+---------+ + + + documented as of this encounter Visit Diagnoses Not on filedocumented in this encounter"
--- OUTSIDE RECORDS SUMMARY | ~2019-12-06 | XMS | Encounter Summary ---
Demographics + + + | Address | [address] | | | [place] [address] | + + + | Home Phone [...] Providers + +------+ + | Care Transportation Department Supervisor Name | Role | Phone [...] 2019 | | GASTROENTEROLOGY | [address], [place] | | | | | [address] [place] | [address] [place], [place] | | | | | [address] [place], [place] | [address] | | | | | [address] | | | | | | [phone] | | | +--------+ + + + [...] | | | | | [place] [address] | | | | | | [phone] | | | | | | | | +--------+---------+ + + + | 01/01/ | Office | Cardiology | Silvia, | | | 2019 | Visit | | [place] [address] | | | | | | [place], | | | | | | [place] [address] | | | | | | [phone] | | | | | | | | +--------+---------+ + + + documented as of this encounter Visit Diagnoses Not on filedocumented in this encounter"
--- OUTSIDE RECORDS SUMMARY | ~2019-12-06 | XMS | Encounter Summary ---
Demographics + + + | Address | [address] | | | [place] [address] | + + + | Home Phone [...] Team Providers + +------+ + | Care Force Variation Equipment Tender Name | Role | Phone | [...] 2019 | | GASTROENTEROLOGY | [address], [place] | | | | | [address] [place] | [address] [place], [place] | | | | | [address] [place], [place] | [address] | | | | | [address] | | | | | | [phone] | | | +--------+ + + + [...] | | | | | [place] [address] | | | | | | [phone] | | | | | | | | +--------+---------+ + + + | 01/01/ | Office | Cardiology | Silvia, | | | 2019 | Visit | | [place] [address] | | | | | | [place] | | | | | | [place] [address] | | | | | | [phone] | | | | | | | | +--------+---------+ + + + documented as of this encounter Visit Diagnoses Not on filedocumented in this encounter"
--- OUTSIDE RECORDS SUMMARY | ~2019-12-06 | XMS | Encounter Summary ---
Demographics + + + | Address | [address] | | | [place] [address] | + + + | Home Phone [...] Team Providers + +------+ + | Care Adjusto Writer Operator Name | Role | Phone | + +------+ + | Kirk French MD | PCP | | + +------+ + Encounter Details +--------+ + + + + | Date | Type | Department | Care Team | Description | +--------+ + + + + | 01/05/ | Orders Only | [facility] | Emmanuel Daniel MD | | | 2019 | | [facility] | [address], [place] | | | | | PATHOLOGY [address] | [address] [place], [place] | | | | | [place] | [address] | | | | | [address] | | | | | | [phone] | | | +--------+ + + + [...] | | | | | | [address] [place] | | | | | | [place] [address] | | | | | | [phone] | | | | | | | | +--------+---------+ + + + | 01/01/ | Office | Cardiology | Silvia, | | | 2019 | Visit | | [place] [address] | | | | | | [place], | | | | | | [place] [address] | | | | | | [phone] | | | | | | | [...] | | | (atherosclerotic heart disease of [place] coronary artery without | | | angina [...] chronic or | | | microscopic colitis. BES:[facility]:C3NR GROSS DESCRIPTION: A. The | | | specimen, labeled "Laura, duodenal biopsy" is received in formalin | | | and consists of seven 0.1-0.5 cm lin fragments. Entirely submitted in | | | (A1). B. The specimen, labeled "Pal[place], right colon" is received | | | in formalin and consists of six 0.2-0.3 cm lin fragments. Entirely | | | submitted in (B1). C. The specimen, labeled "[place], left colon" | | | is received in formalin and consists of six 0.2-0.3 cm lin-pink | | | fragments. Entirely submitted in (C1). am:AMB:portillo PERFORMING | | | LABORATORY: The technical component was performed by [employer] | | | [facility], [address] [place] [address] (Plate Sensitizer: | | | Kailey Stafford MD; CLIA# [id number]). Professional interpretation was | | | performed by [facility], [facility], [facility] | | | [place] [id number] (Plate Sensitizer: [place] | Shanique Dao M.D.; LAYNE#: [id number]). Diagnostician: Ishaan Dao | | | Pathologist [...]
--- OUTSIDE RECORDS SUMMARY | ~2019-12-06 | XMS | Encounter Summary ---
Demographics + + + | Address | [address] | | | [place] [address] | + + + | Home Phone [...] Providers + +------+ + | Care Service Center Manager Name | Role | Phone | [...] 2014 | | CARDIOLOGY [address] | CLAIM INVESTIGATOR [address] [place] | | | | | [place], | [place], [place] | | | | | [place] [address] | [address] | | | | | [phone] | | | +--------+ + + + [...] | | | | | [place] [address] | | | | | | [phone] | | | | | | | | +--------+---------+ + + + | 01/01/ | Office | Cardiology | Silvia, | | | 2019 | Visit | | [place] [address] | | | | | | [place], | | | | | | [place] [address] | | | | | | [phone] | | | | | | | | +--------+---------+ + + + documented as of this encounter Visit Diagnoses Not on filedocumented in this encounter"
--- OUTSIDE RECORDS SUMMARY | ~2019-12-06 | XMS | Encounter Summary ---
Demographics + + + | Address | [address] | | | [place] [address] | + + + | Home Phone [...] + + | 05/26/ | Emergency | [facility] | Lizbeth Green | Atypical chest pain | | 2013 | | [facility] | DO Nicole Fink | (Primary Dx); | | | | CENTER [address] | [place], [place] | Anxiety | | | | [place], [place] | [address] | | | | | [address] | | | | | | [phone] | | | +--------+ + + + [...] + + + +---------+ + + | Ch[place]-3 Fatty | CAPS, one capsule by | [...] | | | | | | [place] [address] | | | | | | [phone] | | | | | | | | +--------+---------+ + + + | 01/01/ | Office | Cardiology | Silvia, | | | 2019 | Visit | | [place] [address] | | | | | | [place], | | | | | | [place] [address] | | | | | | [phone] | | | | | | | [...] the uneventful IV administration of 80 mL [id number] contrast. Timing of | | contrast bolus [...] + | MISCELLANEOUS LAB | | | [phone] | + +---------+ + + | MISCELANIOUS LAB | | | [phone] | + +---------+ + + Troponin I [...] + | [facility] | [address] | [place] | [phone] | | [facility] | | [address] | | | - LABORATORY | | | | + + + + + | [facility] | [address] | [place] | | | [facility] | | [address] | | | - LABORATORY | | [...] | 0.89 | 0.60 - 1.30 | PORCUPINE | | | | | mg/dL | [facility] | | | | | | MEDICAL | | | | | | CENTER - | | | | | | LABORATORY | | + + + + + + | eGFR if not | >60Comment: GLOMERULAR | >=60 | PORCUPINE | | | | FILTRATION | mL/min/1.73m2 | [facility] | | | [place] | RATE,ESTIMATED | | MEDICAL | | | | mL/min/1.42n7Suzf than | | CENTER - | | [...] + | [facility] | [address] | [place] | [phone] | | [facility] | | [address] | | | - LABORATORY | | | | + + + + + | [facility] | [address] | [place] | | | [facility] | | [address] | | | - LABORATORY | | [...] + | [facility] | [address] | [place] | [phone] | | [facility] | | [address] | | | - LABORATORY | | | | + + + + + | [facility] | [address] | [place], [place] | | | [facility] | | [address] | | | - LABORATORY | | [...]
--- OUTSIDE RECORDS SUMMARY | ~2019-12-06 | XMS | Encounter Summary ---
Demographics + + + | Address | [address] | | | [place] [address] | + + + | Home Phone [...] Team Providers + +------+ + | Care Aba Tutor Name | Role | Phone | [...] [address] | | | | | [place], | [place], | | | | | [place] [address] | [place] [address] | | | | | [phone] | [phone] | | | | | | | [...] [place] | | | | | | [place] [address] | | | | | | [phone] | | | | | | | | +--------+---------+ + + + | 01/01/ | Office | Cardiology | [place]via, | | | 2019 | Visit | | [place] [address] | | | | | | [place], | | | | | | [place] [address] | | | | | | [phone] | | | | | | | | +--------+---------+ + + + documented as of this encounter Visit Diagnoses Not on filedocumented in this encounter"
--- OUTSIDE RECORDS SUMMARY | ~2019-12-06 | XMS | Encounter Summary ---
Demographics + + + | Address | [address] | | | [place] [address] | + + + | Home Phone [...] Team Providers + +------+ + | Care Tele Marketing Executive Name | Role | Phone [...] | | | | of feces, | [place], [place] | [address] | | | | | unspecified | [address] [place] | [place], [place] | | | | | fecal | [place], [place] | [address] | | | | | incontinence | [address] | Phone: | | | | | type | Phone: | [phone] | | | | | Diarrhea, | [phone] | Fax: | | | | | unspecified | Fax: | [phone] | | | | | type | [phone] | | +--------+ + + + + [...] 2018 | | GASTROENTEROLOGY | [address], [place] | | | | | [address] [place] | [address] [place], [place] | | | | | [address] [place], [place] | [address] | | | | | [address] | | | | | | [phone] | | | +--------+ + + + [...] | | | | | [place] [address] | | | | | | [phone] | | | | | | | | +--------+---------+ + + + | 01/01/ | Office | Cardiology | Silvia, | | | 2020 | Visit | | [place] [address] | | | | | | [place] | | | | | | [place] [address] | | | | | | [phone] | | | | | | | [...] | feces, unspecified | (Approximate), | | (harri) | | | fecal incontinence | Expires: [...]
--- OUTSIDE RECORDS SUMMARY | ~2019-12-06 | XMS | Encounter Summary ---
Demographics + + + | Address | [address] | | | [place] [address] | + + + | Home Phone [...] Team Providers + +------+ + | Care Geophysical Party Chief Name | Role | Phone | + +------+ + PCP | Unavailable | + +------+ + Encounter Details +--------+ + + + + | Date | Type | Department | Care Team | Description | +--------+ + + + + | 08/17/ | [facility] | [facility] | Evan Gandara MD | | | 2005 | Encounter | MED CTR LAB[facility]ORY | [address] [facility] | | | | | [address] | [place] | | | | | [place] | [address] | | | | | [address] | | | | | | [phone] | | | +--------+ + + + [...] | | | | | [place] [address] | | | | | | [phone] | | | | | | | | +--------+---------+ + + + | 01/01/ | Office | Cardiology | Silvia, | | | 2020 | Visit | | [place] [address] | | | | | | [place], | | | | | | [place] [address] | | | | | | [phone] | | | | | | | | +--------+---------+ + + + documented as of this encounter Visit Diagnoses Not on filedocumented in this encounter"
--- OUTSIDE RECORDS SUMMARY | ~2019-12-06 | XMS | Encounter Summary ---
Demographics + + + | Address | [address] | | | [place] [address] | + + + | Home Phone [...] Providers + +------+ + | Care Cnc Operator Name | Role | Phone | [...] 2019 | | GASTROENTEROLOGY | [address], [place] | | | | | [address] [place] | [address] [place], [place] | | | | | [address] [place], [place] | [address] | | | | | [address] | | | | | | [phone] | | | +--------+ + + + [...] | | | | | [place] [address] | | | | | | [phone] | | | | | | | | +--------+---------+ + + + | 01/01/ | Office | Cardiology | Silvia, | | | 2019 | Visit | | [place] [address] | | | | | | [place], | | | | | | [place] [address] | | | | | | [phone] | | | | | | | | +--------+---------+ + + + documented as of this encounter Visit Diagnoses Not on filedocumented in this encounter"
--- OUTSIDE RECORDS SUMMARY | ~2019-12-06 | XMS | Encounter Summary ---
Demographics + + + | Address | [address] | | | [place] [address] | + + + | Home Phone [...] Providers + +------+ + | Care Farm Mortgage Agent Name | Role | Phone | + +------+ + | Kirk French MD | PCP | | + +------+ + Encounter Details +--------+ + + + + | Date | Type | Department | Care Team | Description | +--------+ + + + + | 11/17/ | Telephone | [facility] | Kirk French | | | 2019 | | GERALDINE Guidry MD [address] | | | | | PRIMARY CARE [address] | | | | | [address] | [place] [address] | | | | | [place], [place] | [phone] | | | | | [address] | | | | | | [phone] | | | +--------+ + + + [...] | | | | | [place] [address] | | | | | | [phone] | | | | | | | | +--------+---------+ + + + | 01/01/ | Office | Cardiology | Silvia, | | | 2019 | Visit | | PAR[place] [address] | | | | | | [place] | | | | | | [place] [address] | | | | | | [phone] | | | | | | | | +--------+---------+ + + + documented as of this encounter Visit Diagnoses Not on filedocumented in this encounter"
--- OUTSIDE RECORDS SUMMARY | ~2019-12-06 | XMS | Encounter Summary ---
Demographics + + + | Address | [address] | | | [place] [address] | + + + | Home Phone [...] Team Providers + +------+ + | Care Pastoral Counselor Name | Role | Phone | + +------+ + | Kirk French MD | PCP | | + +------+ + Encounter Details +--------+ + + + + | Date | Type | Department | Care Team | Description | +--------+ + + + + | 01/07/ | Hospital | [facility] | Conversion | | | 2017 | Encounter | [facility] | Transaction, | | | | | ULTRASOUND [address] | Provider Unknown | | | | | [address] [facility] [address] | [phone] | | | | | [place] | | | | | | [address] | Kirk French | | | | | [phone] | MD Eva Guidry | | | | | | [address] [place], | | | | | | [place] [address] | | | | | | [phone] | | | | | | | [...] + + + +---------+ + + | Hugo-3 Fatty | CAPS, one capsule by | [...] | | | | | [place] [address] | | | | | | [phone] | | | | | | | | +--------+---------+ + + + | 01/01/ | Office | Cardiology | Silvia, | | | 2020 | Visit | | PAR[place] [address] | | | | | | [place], | | | | | | [place] [address] | | | | | | [phone] | | | | | | | | +--------+---------+ + + + documented as of this encounter Visit Diagnoses Not on filedocumented in this encounter"
--- OUTSIDE RECORDS SUMMARY | ~2019-12-06 | XMS | Encounter Summary ---
Demographics + + + | Address | [address] | | | [place] [address] | + + + | Home Phone [...] Team Providers + +------+ + | Care All Round Logger Name | Role | Phone | [...] loss | [address] | [address], | | | | | Anxiety | [address] [place] | [place] [address] | | | | | disorder, | [address] | [place], | | | | | unspecified | [place], [place] | [place] [address] | | | | | Chronic | [address] | Phone: | | | | | pain | Phone: | [phone] | | | | | syndrome | [phone] | Fax: | | | | | Procedures | Fax: | [phone] | | | | | office visit | [phone] | | +--------+--------+ + + + + Encounter Details +--------+---------+ + + + | Date | Type | Department | Care Team | Description | +--------+---------+ + + + | 12/26/ | Office | [facility] | Emmanuel Daniel MD | Functional diarrhea | | 2019 | Visit | GASTROENTEROLOGY | [address] [place] | (Primary Dx); | | | | [address] [place] | [address] [place], [place] | Gastrointestinal | | | | [address] [place], [place] | [address] | hemorrhage | | | | [address] | | associated with | | | | [phone] | | anorectal source; | | | [...] | | | | | [place] [address] | | | | | | [phone] | | | | | | | | +--------+---------+ + + + | 01/01/ | Office | Cardiology | [place] | | | 2019 | Visit | | PAR[place] [address] | | | | | | [place], | | | | | | [place] [address] | | | | | | [phone] | | | | | | | [...]
--- OUTSIDE RECORDS SUMMARY | ~2019-12-06 | XMS | Encounter Summary ---
Demographics + + + | Address | [address] | | | [place] [address] | + + + | Home Phone [...] Providers + +------+ + | Care Survey Rodman Name | Role | Phone | + [...] | type | [address] | [address] | | | | | Procedures | [place] | [place], | | | | | FUP | [place], [place] | [place] [address] | | | | | | [address] | Phone: | | | | | | Phone: | [phone] | | | | | | [phone] | Fax: | | | | | | Fax: | [phone] | | | | | | [phone] | | +--------+ + + + + [...] | | | | CENTER [address] [place] | (Primary Dx) | | | | [place], [place] | [place] [address] | | | | | [address] | [phone] | | | | | [phone] | | | +--------+ + + + [...] cannot be sent through Care Everywhere.Angina, Stable (Spanish)documented in this encounter Medications at Time of [...] + + + +---------+ + + | [place]-3 Fatty | CAPS, one capsule by | [...] | | | | | [place] [address] | | | | | | [phone] | | | | | | | | +--------+---------+ + + + | 01/01/ | Office | Cardiology | Silvia, | | | 2019 | Visit | | PARISA [place] [address] | | | | | | [place] | | | | | | [place] [address] | | | | | | [phone] | | | | | | | | +--------+---------+ + + + + +------+--------+ + + | Name | Type | Priori | Associated Diagnoses | Date/Time | | | | ty | | | + +------+--------+ + + | ED INFORMATION | RBUNILDA | Routin | | 06/20/2018 6:53 PM [...] | | | | ANGELA MARADIAGA MD ([id number]) | | | | | | on [...] | | | | | | [employer] | | | | | [...] ST. | [address] | [place] | [phone] | | [facility] | | [address] | | | - LABORATORY | | [...] [address] | [place] | [phone] | | [facility] | | [address] | | | - LABORATORY | | [...] | | | | | | [employer] | | | | | [...] [address] | [place] | [phone] | | [facility] | | [address] | | | - LABORATORY | | [...] | | | FILTRATION | mL/min/1.73m2 | [facility] | | | QATARI | RATE,ESTIMATED | | MEDICAL | | | | mL/min/1.66k1Augo than | | CENTER - | | [...] + | [facility] | [address] | [place] | [phone] | | [facility] | | [address] | | | - LABORATORY | | [...] [address] | [place] | [phone] | | [facility] | | [address] | | | - LABORATORY | | [...] | | | | ANGELA MARADIAGA MD ([id number]) | | | | | | on [...]
--- OUTSIDE RECORDS SUMMARY | ~2019-12-06 | XMS | Encounter Summary ---
Demographics + + + | Address | [address] | | | [place] [address] | + + + | Home Phone [...] Providers + +------+ + | Care Railroad Commissioner Name | Role | Phone | + +------+ + PCP | Unavailable | + +------+ + Encounter Details +--------+ + + + + | Date | Type | Department | Care Team | Description | +--------+ + + + + | 07/20/ | [facility] | [facility] | Hunter Antunez, | | | 2009 - | Encounter | MED CTR MED ONC | [address] | | | | | [address] [place] | [place] | | | 07/24/ | | [place] [address] | [address] | | | 2009 | | [phone] | | | +--------+ + + + [...] | | | | | [place] [address] | | | | | | [phone] | | | | | | | | +--------+---------+ + + + | 01/01/ | Office | Cardiology | Silvia, | | | 2020 | Visit | | PARISA [place] [address] | | | | | | [place], | | | | | | [place] [address] | | | | | | [phone] | | | | | | | | +--------+---------+ + + + documented as of this encounter Visit Diagnoses Not on filedocumented in this encounter"
--- OUTSIDE RECORDS SUMMARY | ~2019-12-06 | XMS | Encounter Summary ---
Demographics + + + | Address | [address] | | | [place] [address] | + + + | Home Phone [...] Team Providers + +------+ + | Care Individualized Education Plan Aide Name | Role | Phone | [...] [address] | | | | | [place], | [place], | | | | | [place] [address] | [place] [address] | | | | | [phone] | [phone] | | | | | | | [...] | | | | | [place] [address] | | | | | | [phone] | | | | | | | | +--------+---------+ + + + | 01/01/ | Office | Cardiology | Silvia, | | | 2020 | Visit | | PARISA Vernon [address] | | | | | | [place] | | | | | | [place] [address] | | | | | | [phone] | | | | | | | | +--------+---------+ + + + documented as of this encounter Visit Diagnoses Not on filedocumented in this encounter"
--- OUTSIDE RECORDS SUMMARY | ~2019-12-06 | XMS | Encounter Summary ---
Demographics + + + | Address | [address] | | | [place] [address] | + + + | Home Phone [...] Providers + +------+ + | Care Architectural Engineer Name | Role | Phone | [...] | CARDIOLOGY [address] | MD [address] | | | | | [place], | [place], | | | | | [place] [address] | [place] [address] | | | | | [phone] | [phone] | | | | | | | [...] | | | | | | [place] [address] | | | | | | [phone] | | | | | | | | +--------+---------+ + + + | 01/01/ | Office | Cardiology | Silvia, | | | 2019 | Visit | | PARISA Vernon [address] | | | | | | [place], | | | | | | [place] [address] | | | | | | [phone] | | | | | | | | +--------+---------+ + + + documented as of this encounter Visit Diagnoses Not on filedocumented in this encounter"
--- OUTSIDE RECORDS SUMMARY | ~2019-12-06 | XMS | Encounter Summary ---
Demographics + + + | Address | [address] [place] [address] [address] | | | [place] [address] | + + + | Home Phone [...] [place] | | | | | [address] | | + + + + + Care Team Providers + +------+ + | Care Systems Planner Name | Role | Phone | [...] | 2019 | | Center at [facility] [address] | MD [address] | | | | | [address] | [facility] [place] | | | | | Mailcode: [place] | [address] | | | | | for Health and | [phone] | | | | | [facility] 2 | | | | | | [facility] [place] | | | | | | [address] | | | | | | [phone] | | | +--------+ + + + [...]
--- OUTSIDE RECORDS SUMMARY | ~2019-12-06 | XMS | Encounter Summary ---
Demographics + + + | Address | [address] | | | [place] [address] | + + + | Home Phone [...] Team Providers + +------+ + | Care Fiber Optics Engineer Name | Role | Phone | [...] + + | 08/31/ | Refill | [facility] | Kirk French | Medication Refill | | 2018 | | [facility] | MD Brea [address] | | | | | [facility] [address] | [address] | | | | | [address] | [place] [address] | | | | | [place], [place] | [phone] | | | | | [address] | | | | | | [phone] | | | +--------+--------+ + + + [...] | | | | | [place] [address] | | | | | | [phone] | | | | | | | | +--------+---------+ + + + | 01/01/ | Office | Cardiology | Silvia, | | | 2019 | Visit | | PARISA Vernon [address] | | | | | | [place] | | | | | | [place] [address] | | | | | | [phone] | | | | | | | | +--------+---------+ + + + documented as of this encounter Visit Diagnoses Not on filedocumented in this encounter"
--- OUTSIDE RECORDS SUMMARY | ~2019-12-06 | XMS | Encounter Summary ---
Demographics + + + | Address | [address] | | | [place] [address] | + + + | Home Phone [...] Providers + +------+ + | Care Building Supervisor Name | Role | Phone | [...] + + | 08/29/ | [facility] | [facility] | [place], | Essential | | 2015 | Visit | CARDIOLOGY [address] | PAR[place] [address] | hypertension | | | | [place], | [place], | (Primary Dx); | | | | [place] [address] | [place] [address] | Coronary artery | | | | [phone] | [phone] | disease involving | | | | | | [place] coronary | | | | | | [...] was seen in the emergency room at [facility] on 08/23/20 15 and the ER physician reviewed his chart saying that there were 2 ultrasounds from [facility] both of them are clear of DVT but reveal some venous insufficiency. Today, arian ent tells me that he started having swelling in both his feet within a week when he got to [facility]. He had extensive traveling. He [...] health care Coronary artery disease involving [place] coronary artery without angina pectoris Cannabis abuse, [...] every evening. 90 tablet 3 [facility] Natural Products (OSTEO BI-FLEX/5-LOXIN ADVANCED PO) Take [...] 3rd dose, call 911 100 tablet 3 [place]-3 Fatty Acids (SALMON OIL-1000 PO) CAPS, one [...] Daily. to reduce urinary frequenc y Lot #[id number], exp 07/2016 (Patient taking differently: Take 8 mg by mouth Daily. PATIENT STA YOSELIN NO LONGER TAKING THIS MEDICATION. STATED ON 08/29/2015. to reduce urinary frequency Lot #[id number], exp 07/2016) 21 capsule 0 Specialty Vitamins [...] PLTEX 163 07/26/2014 I reviewed records from [facility] [...] brought reports to the emergency room at [facility] and according to the not es they [...] ventricular arrhythmia performed by Dr. Gambino at [facility] on 01/30/2013. Patient had spontaneous [...] to go back in 3 days to [place] for an attempt of ablation under general [...] dizziness. He is in class I-II of [place] 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 T here are [...] this chart may have been created with [employer] voice recognition software. Occasi onal wrong-word or [...] | | | | | | [place] [address] | | | | | | [phone] | | | | | | | | +--------+---------+ + + + | 01/01/ | Office | Cardiology | Silvia, | | | 2020 | Visit | | PARISA [place] [address] | | | | | | [place], | | | | | | [place] [address] | | | | | | [phone] | | | | | | | [...] the | | | | PDT | [place] coronary | results section. | | | [...] the groin through the popliteal fossa | [facility] | | in both lower extremities.. [...] conveyed to the ordering provider, by the equipment technician, | | | immediately following the exam. [...] to the ordering provider, by the | |equipment technician, immediately following the exam. | | | | | |Dictated and Signed by: Emmanuel Gibbons MD | | Electronically signed: 08/29/2015 3:25 PM | + + + + + + + | Performing | Address | City/State[facility] | Phone Number | | Organization | | | | + + + + + | [facility] | [address] | [place] | [phone] | | [facility] | | [address] | | | - IMAGING | | [...] MD | | | | | | [id number]) on 08/29/2015 | | | | | [...] disease involving [place] coronary artery without angina pectoris | + + | DVT (deep venous thrombosis), bilateral | + + documented in this encounter
--- OUTSIDE RECORDS SUMMARY | ~2019-12-06 | XMS | Encounter Summary ---
Demographics + + + | Address | [address] | | | [place] [address] | + + + | Home Phone [...] Providers + +------+ + | Care Senior Technical Architect Name | Role | Phone | + +------+ + | Kirk French MD | PCP | | + +------+ + Encounter Details +--------+---------+ + + + | Date | Type | Department | Care Team | Description | +--------+---------+ + + + | 01/05/ | Surgery | [facility] | Emmanuel Daniel MD | EGD | | 2019 | | MED CTR MP INTRA OP | [address], [place] | | | | | [address] | [address] [place], [place] | | | | | [place], [place] | [address] | | | | | [address] | | | | | | [phone] | | | +--------+---------+ + + + [...] for a few hours. Date Last Reviewed: 09/22/201619996826-9877 [employer] [place] [address]. All righ ts reserved. This information is [...] vomiting, or vomiting blood Date Last Reviewed: 05/22/201619996661-9202 [employer]. [address] [place] [address]. All righ ts reserved. This information is [...] You can't be awakened Date Last Reviewed: 09/08/201619998675-2881 [employer]. [address] [place] [address], [place] [address]. All righ ts reserved. This information is [...] + + + +---------+ + + | [place]-3 Fatty | CAPS, one capsule by | [...] | | | | | | [address] | | | | | | [place] [address] | | | | | | [phone] | | | | | | | | +--------+---------+ + + + | 01/01/ | Office | Cardiology | Silvia, | | | 2019 | Visit | | PARISA [place] [address] | | | | | | [place], | | | | | | [place] [address] | | | | | | [phone] | | | | | | | [...] 100[address]200, | REFERENCE LAB | | [place] [id number] Construction Producer: Miguel Galarza MD, Phone: | [facility] | | [phone] | | + + + + + + + + | Performing | Address | City/State/Zipcode | Phone Number | | Organization | | | | + + + + + | REFERENCE LAB | [address] | [place] [address] | [phone] | | [facility] | [address] | [...] [place] [address], | REFERENCE LAB | | [place], [place] [id number] Construction Producer: Miguel Galarza MD, Phone: | [facility] | | [phone] | | + + + + + + + + | Performing | Address | City/State/Zipcode | Phone Number | | Organization | | | | + + + + + | REFERENCE LAB | [address] [facility] | [place] [address] | [phone] | | [facility] | Drive [...] [address] | [place] | [phone] | | [facility] | | [address] | | | - LABORATORY | | [...] [address] | [place] | [phone] | | [facility] | | [address] | | [...] + + | Performing | Address | City/[facility] | Phone Number | | Organization | | | | + + + + + | [facility] | [address] | [place] | [phone] | | [facility] | | [address] | | | - LABORATORY | | [...] + | [facility] | [address] | [place] | [phone] | | [facility] | | [address] | | | - LABORATORY | | [...] [address] | [place] | [phone] | | [facility] | | [address] | | | - LABORATORY | | [...] [address] | [place] | [phone] | | [facility] | | [address] | | | - LABORATORY | | | | + + + + + EGD (01/05/2019 8:36 AM PST) + + | Specimen | + + | | + + + + -+ | Narrative | Performed At | + + -+ | | [facility] | | GastroenterologyPatient Name: Moe Venegas Date: | PROVATION | | 01/05/2019 8:36 AMMRN: [id number] #: [id number] of : | | | 1960dmit Type: AmbulatoryAge: 58Room: [facility] 01Gender: MaleNote | | | Status: FinalizedAttending MD: Emmanuel Daniel , MDProcedure: | | | Upper GI endoscopyIndications: Diarrhea, Weight | | | lossProviders: Emmanuel Daniel MD, Heidi Gonzalezchfield, | | | RN, Kim Hicks, Research Development Director, | | | Jarett Barakat MD (Anesthesia [...] physician, the nurse, the anesthesiologist and the electronic bench technician | | | in the endoscopy [...] | | Imaging was performed using the [employer] | | | Endoscopy (FICE) [...] Scope In: 8:43:57 AMScope Out: 8:49:50 AM [facility]. | | | [facility], [address] [place] [address] | | | [phone] | | |Recommendation: | | | - [...] |Scope Out: 8:49:50 AM | | | [facility]. [facility], [address] [place] [address] | | | [address] | | + + -+ + +---------+ [...] | PROVATION | | 01/05/2019 8:36 AMMRN: [id number] #: [id number] of : | | | 9Admit Type: AmbulatoryAge: 58Room: [facility] 01Gender: MaleNote | | | Status: FinalizedAttending MD: Emmanuel Daniel [facility]: | | | ColonoscopyIndications: Clinically significant diarrhea of | | | unexplained origin, Weight lossProviders: | | | Emmanuel Daniel MD, Heidi An RN, [place] | | | Fiorella Hicks, Research Development Director, Jarett Alejo | | | MD Roshni [...] | | | the anesthesiologist and the electronic bench technician in the endoscopy suite. | | [...] Out: | | | 9:06:28 AM [facility], [address] [facility], | | | [place] [address] | | | - Discharge patient to [...] |Scope Out: 9:06:28 AM | | | [facility], [address], [place], [place] | | | [address] | | + + -+ + +---------+ [...] | | | (atherosclerotic heart disease of [place] coronary artery without | | | angina [...] chronic or | | | microscopic colitis. BES:[facility]:C3NR GROSS DESCRIPTION: A. The | | | specimen, labeled "Laura, duodenal biopsy" is received in formalin | | | and consists of seven 0.1-0.5 cm lin fragments. Entirely submitted in | | | (A1). B. The specimen, labeled "[place], right colon" is received | | | in formalin and consists of six 0.2-0.3 cm lin fragments. Entirely | | | submitted in (B1). C. The specimen, labeled "[place], left colon" | | | is received in formalin and consists of six 0.2-0.3 cm lin-pink | | | fragments. Entirely submitted in (C1). am:AMB:portillo PERFORMING | | | LABORATORY: The technical component was performed by [employer] | | | [employer], [address] [place] [address] (Business Rules Analyst: | | | Kailey Stafford MD; CLIA# [id number]). Professional interpretation was | | | performed by [employer], [facility], [facility] | | | [place] [address] (Business Rules Analyst: Ishaan | | Shanique Dao M.D.; CLIA#: [id number]). Diagnostician: Ishaan Fitzpatrick | | | Sylwia [...] Wheezing, | | | Starting [facility] 01/05/19 at 0924, | | | [...] | mL/hr | | | CONTINUOUS, Starting [facility] 01/05/19 | | AM PST | | | | | at 0800, Pre-op | | | | | | + +---------+ +---+-------+---+ + +---+ | | | + +---+ | ondansetron (ZOFRAN) injection | | | 4 mg 4 mg, Oral, EVERY 4 HOURS | | | PRN, Nausea, Vomiting, Starting | | | [facility] 01/05/19 at 0924, | | | Recovery/Phase I | | + +---+ | | | + +---+ | ondansetron (ZOFRAN) injection | | | 4 mg 4 mg, Intravenous, ONCE | | | PRN, Nausea, Starting [facility] 01/05/19 | | | at 0924, For 1 dose, | | | Recovery/Phase I | | + +---+ | | | + +---+ documented in this encounter
--- OUTSIDE RECORDS SUMMARY | ~2019-12-06 | XMS | Encounter Summary ---
Demographics + + + | Address | [address] | | | [place] [address] | + + + | Home Phone [...] Team Providers + +------+ + | Care Circulator Name | Role | Phone | + [...] + | 12/23/ | Telephone | [facility] | [place], | Lab Order (due for | | 2017 | | CARDIOLOGY [address] | Janeen, DIRECTOR OF VALUATION [address] | fasting labs) | | | | [place], | [place], | | | | | [place] [address] | [place] [address] | | | | | [phone] | [phone] | | | | | | | [...] | | | | | | [place] [address] | | | | | | [phone] | | | | | | | | +--------+---------+ + + + | 01/01/ | Office | Cardiology | [place], | | | 2019 | Visit | | PARISA [place] [address] | | | | | | [place] | | | | | | [place] [address] | | | | | | [phone] | | | | | | | | +--------+---------+ + + + documented as of this encounter Visit Diagnoses Not on filedocumented in this encounter"
--- OUTSIDE RECORDS SUMMARY | ~2019-12-06 | XMS | Encounter Summary ---
Demographics + + + | Address | [address] | | | [place] [address] | + + + | Home Phone [...] Team Providers + +------+ + | Care Sheetrock Applicator Name | Role | Phone | [...] | | | | stenosis | L, ELECTRONIC PARTS DESIGNER [address] | | | | | | Procedures | [address] | | | | | | CT | [address] | | | | | | Myelography | [place], [place] | | | | | | Cervical | [address] | | | | | | Spine | Phone: | | | | | | | [phone] | | | | | | | Fax: | | | | | | | [phone] | | +--------+--------+ + + + + [...] + + | 06/04/ | Hospital | [facility] | [place], | Cervical spinal | | 2016 | Encounter | MED CTR [address] | Marietta Mason ELECTRONIC PARTS DESIGNER [address] | stenosis | | | | [place], | [address] | | | | | [place] [address] | [place] [address] | | | | | [phone] | [phone] | | | | | | | [...] | | | | | [place] [address] | | | | | | [phone] | | | | | | | | +--------+---------+ + + + | 01/01/ | Office | Cardiology | [place]via, | | | 2019 | Visit | | PARISA [place] [address] | | | | | | [place], | | | | | | [place] [address] | | | | | | [phone] | | | | | | | [...]
--- OUTSIDE RECORDS SUMMARY | ~2019-12-06 | XMS | Encounter Summary ---
Demographics + + + | Address | [address] | | | [place] [address] | + + + | Home Phone [...] Providers + +------+ + | Care Staff Research Scientist Name | Role | Phone [...] | Aneurysmal | [place], | [address] | | | | | dilatation | PARISA Solis | [place], | | | | | ([facility]) | [address] | [place] | | | | | Procedures | [place] | [address] | | | | | ECHO | [place], | Phone: | | | | | Complete | [place] | [phone] | | | | | | [address] | Fax: | | | | | | Phone: | [phone] | | | | | | [phone] | | | | | | | Fax: | | | | | | | [phone] | | +--------+--------+ + + + + [...] | | | | | Aneurysmal | [place], | [address] | | | | | dilatation | PARISA Solis | [place], | | | | | ([facility]) | [address] | [place] | | | | | Procedures | [place] | [address] | | | | | ECHO | [place], | Phone: | | | | | Complete | [place] | [phone] | | | | | | [address] | Fax: | | | | | | Phone: | [phone] | | | | | | [phone] | | | | | | | Fax: | | | | | | | [phone] | | +--------+--------+ + + + + Encounter Details +--------+ + + + + | Date | Type | Department | Care Team | Description | +--------+ + + + + | 11/16/ | Hospital | [facility] | [place], | Aneurysmal | | 2017 | Encounter | MED CTR ECHO [address] | Irma, FINAL RAIL CUTTER [address] | dilatation (HCC) | | | | [place] | [place], | | | | | [place], [place] [address] | [place] [address] | | | | | [phone] | [phone] | | | | | | | [...] + + + +---------+ + + | [place]-3 Fatty | CAPS, one capsule by | [...] | | | | | [place] [address] | | | | | | [phone] | | | | | | | | +--------+---------+ + + + | 01/01/ | Office | Cardiology | [place]via, | | | 2020 | Visit | | PARISA Solis [address] | | | | | | [place], | | | | | | [place] [address] | | | | | | [phone] | | | | | | | [...] Room Number SARAH Patient | | | [id number] Date of Study 11/16/2017 Number | | | Visit Number [id number] | | | Referring Physician GURJIT TROY Number | | | NORMA SOLIS Date | | | of 1960 Cage/Vault Supervisor ROMAINE | | | MARISSA TIPTON Age 57 year(s) Interpreting | | | GURJIT TROY | | | Family Service Aide SYDNI CAGLE, | | | MD | | | Gender Male Nurse | | | Stress Patient Support Assistant Procedure Type of | | | [...] | | | EF | | | Cmrggynjm60% Left Ventricle Diastolic Dimension: 5.12 cm | [...] Volume: 46.33 ml | | | EF Ljimnouhg42% | | | | | | Left [...] Results In - 11/16/2017 1:48 PM [facility] Transthoracic Echocardiography Report | | (TTE) Demographics Patient Name VICTOR HUGO BARRY Room Number SARAH | | Patient [id number] Date of Study 11/16/2017 Number Visit Number | | [id number] Referring Physician GURJIT TROY | | Number RHBROCKARD IRMA Date of | | 1960 Cage/Vault Supervisor ROMAINE TIPTON PARESH Age 57 year(s) | | Interpreting GURJIT TROY Family Service Aide | | SYDNI CAGLE MD | | [...] LA Volume: 46.33 ml | | EF Pfjdntzao08% Left Ventricle Diastolic Dimension: 5.12 cm Systolic [...] LA Volume: 46.33 ml | | EF Ytqbdwoaz05% | | | | Left Ventricle | [...]
--- OUTSIDE RECORDS SUMMARY | ~2019-12-06 | XMS | Encounter Summary ---
Demographics + + + | Address | [address] | | | [place] [address] | + + + | Home Phone [...] Providers + +------+ + | Care Director Hris Name | Role | Phone | + [...] | MED CTR EXTERNAL | MD [address] | | | | | IMAGING | [place] | | | | | [phone] | [place] [address] | | +--------+ + + + + [...] | | | | | | [place] [address] | | | | | | [phone] | | | | | | | | +--------+---------+ + + + | 01/01/ | Office | Cardiology | Silvia, | | | 2019 | Visit | | PARISA [place] [address] | | | | | | [place], | | | | | | [place] [address] | | | | | | [phone] | | | | | | | [...]
--- OUTSIDE RECORDS SUMMARY | ~2019-12-06 | XMS | Encounter Summary ---
Demographics + + + | Address | [address] | | | [place] [address] | + + + | Home Phone [...] Providers + +------+ + | Care Industrial Hygiene Engineer Name | Role | Phone | [...] | | CARDIOLOGY [address] | Janeen STRUCTURAL METAL FABRICATOR APPRENTICE [address] | | | | | [place], | [place], | | | | | [place] [address] | [place] [address] | | | | | [phone] | [phone] | | | | | | | [...] | | | | | | [place] [address] | | | | | | [phone] | | | | | | | | +--------+---------+ + + + | 01/01/ | Office | Cardiology | [place], | | | 2019 | Visit | | PARISA Vernon [address] | | | | | | [place], | | | | | | [place] [address] | | | | | | [phone] | | | | | | | | +--------+---------+ + + + documented as of this encounter Visit Diagnoses Not on filedocumented in this encounter"
--- OUTSIDE RECORDS SUMMARY | ~2019-12-06 | XMS | Encounter Summary ---
Demographics + + + | Address | [address] | | | [place] [address] | + + + | Home Phone [...] Providers + +------+ + | Care Computer Bookkeeper Name | Role | Phone | [...] | | | | CENTER [address] | [place] | (Primary Dx) | | 07/28/ | | [place] | [address] | | | 2017 | | [address] | | | | | | [phone] | | | +--------+ + + + [...] sent through Care Everywhere.Chest Pain, Non cardiac (Egyptian)documented in this encounter Medications at Time of [...] + + + +---------+ + + | [place]-3 Fatty | CAPS, one capsule by | [...] | | | | | | [place] [address] | | | | | | [phone] | | | | | | | | +--------+---------+ + + + | 01/01/ | Office | Cardiology | [place], | | | 2019 | Visit | | PARISA Vernon [address] | | | | | | [place], | | | | | | [place] [address] | | | | | | [phone] | | | | | | | [...] W?MRN: | | | | | | [id number] | | | [id number] | | | his | | | [...] | | | ent/60 | | | [id number] | | | [phone] | | | [...] | | | St. | | | [place] | | | y | | | [...] | | | ext. | | | [address] | | | or go | | [...] | | | M.D. | | | Crane Operator | | | al | | [...] | | | | | | [employer] | | | | | [...] | [address] | [place] | [phone] | | [facility] | | [address] | | | - LABORATORY | | [...] 14 | 7 - 18 mg/dL | [facility] | | | | | | [facility] | | | | | | MEDICAL | | | | | | CENTER - | | | | | | LABORATORY | | + + + + + + | Creatinine | 1.06 | 0.60 - 1.30 | [facility] | | | | | mg/dL | [facility] | | | | | | MEDICAL | | | | | | CENTER - | | | | | | LABORATORY | | + + + + + + | eGFR if not | >60Comment: GLOMERULAR | >=60 | [facility] | | | | FILTRATION | mL/min/1.73m2 | [facility] | | | [facility] | RATE,ESTIMATED | | MEDICAL | | | | mL/min/1.63v5Dlmy than | | CENTER - | | [...] [address] | [place] | [phone] | | [facility] | | [address] | | | - LABORATORY | | [...] [address] | [place] | [phone] | | [facility] | | [address] | | | - LABORATORY | | [...] | | | | ANGELA MARADIAGA MD ([id number]) | | | | | | on [...]
--- OUTSIDE RECORDS SUMMARY | ~2019-12-06 | XMS | Encounter Summary ---
Demographics + + + | Address | [address] | | | [place] [address] | + + + | Home Phone [...] Providers + +------+ + | Care Detention Sergeant Name | Role | Phone | [...] + + | 08/19/ | Telephone | [facility] | [place], | Other (patient | | 2016 | | CARDIOLOGY [address] | PARISA Vernon [address] | having issues with | | | | [place], | [place], | high blood pressure) | | | | [place] [address] | [place] [address] | | | | | [phone] | [phone] | | | | | | | [...] | | | | | [place] [address] | | | | | | [phone] | | | | | | | | +--------+---------+ + + + | 01/01/ | Office | Cardiology | [place], | | | 2020 | Visit | | PARISA Vernon [address] | | | | | | [place], | | | | | | [place] [address] | | | | | | [phone] | | | | | | | | +--------+---------+ + + + documented as of this encounter Visit Diagnoses Not on filedocumented in this encounter"
--- OUTSIDE RECORDS SUMMARY | ~2019-12-06 | XMS | Encounter Summary ---
Demographics + + + | Address | [address] | | | [place] [address] | + + + | Home Phone [...] Providers + +------+ + | Care Upholstery Trimmer Name | Role | Phone | + +------+ + PCP | Unavailable | + +------+ + Encounter Details +--------+ + + + + | Date | Type | Department | Care Team | Description | +--------+ + + + + | 01/21/ | Emergency | [facility] | Kirill Dominique | Unspecified Chest | | 2009 | | MEDICAL CENTER | MD Jonas [address] | Pain | | | | EMERGENCY CENTER | [address] [place] | | | | | [address] | [address] | | | | | [place] | [phone] | | | | | [address] | | | | | | [phone] | | | +--------+ + + + [...] | | | | | | [address] [place] | | | | | | [place] [address] | | | | | | [phone] | | | | | | | | +--------+---------+ + + + | 01/01/ | Office | Cardiology | [place], | | | 2019 | Visit | | PARISA Vernon [address] | | | | | | [place], | | | | | | [place] [address] | | | | | | [phone] | | | | | | | | +--------+---------+ + + + documented as of this encounter Visit Diagnoses + + | Diagnosis | + + | Chest pain, unspecified | + + documented in this encounter"
--- OUTSIDE RECORDS SUMMARY | ~2019-12-06 | XMS | Encounter Summary ---
Demographics + + + | Address | [address] | | | [place] [address] | + + + | Home Phone [...] Providers + +------+ + | Care Rail Doweling Machine Operator Name | Role | Phone | + +------+ + PCP | Unavailable | + +------+ + Encounter Details +--------+ + + + + | Date | Type | Department | Care Team | Description | +--------+ + + + + | 05/28/ | [facility] | [facility] | Evan Gandara MD | | | 2008 | Encounter | MED CTR LABORATORY | [address] [facility] | | | | | [address] | [place] | | | | | [place] | [address] | | | | | [address] | | | | | | [phone] | | | +--------+ + + + [...] | | | | | [place] [address] | | | | | | [phone] | | | | | | | | +--------+---------+ + + + | 01/01/ | Office | Cardiology | [place], | | | 2020 | Visit | | PARISA Vernon [address] | | | | | | [place], | | | | | | [place] [address] | | | | | | [phone] | | | | | | | | +--------+---------+ + + + documented as of this encounter Visit Diagnoses Not on filedocumented in this encounter"
--- OUTSIDE RECORDS SUMMARY | ~2019-12-06 | XMS | Encounter Summary ---
Demographics + + + | Address | [address] | | | [place] [address] | + + + | Home Phone [...] Providers + +------+ + | Care Jewel Lathe Operator Name | Role | Phone [...] | | | | CENTER [address] | [place], [place] | insufficiency | | | | [place], [place] | [address] | | | | | [address] | | | | | | [phone] | | | +--------+ + + + [...] sent through Care Everywhere.PERIPHERAL KENYETTA A, BILATERAL (TAMAZIGHT)documented in this encounter Medications at Time of [...] + + +---------+ + + | [place]-3 Fatty | CAPS, one capsule by | [...] | | | | | | | #[id number], exp 07/2016 | | | | | [...] | | | | | [place] [address] | | | | | | [phone] | | | | | | | | +--------+---------+ + + + | 01/01/ | Office | Cardiology | [place], | | | 2019 | Visit | | PARISA Vernon [address] | | | | | | [place] | | | | | | [place] [address] | | | | | | [phone] | | | | | | | | +--------+---------+ + + + documented as of this encounter Visit Diagnoses + + | Diagnosis | + + | Peripheral edema - Primary Edema | + + | Venous insufficiency Unspecified venous (peripheral) insufficiency | + + documented in this encounter
--- OUTSIDE RECORDS SUMMARY | ~2019-12-06 | XMS | Encounter Summary ---
Demographics + + + | Address | [address] | | | [place] [address] | + + + | Home Phone [...] Team Providers + +------+ + | Care Placer Miner Name | Role | Phone | [...] | Palpitations | [address] | | | | | Procedures | [address] | [address] [place] | | | | | ECHO | [place], | [place], [place] | | | | | Complete | [place] [address] | [address] | | | | | | Phone: | Phone: | | | | | | [phone] | [phone] | | | | | | Fax: | Fax: | | | | | | [phone] | [phone] | +--------+--------+ + + + + Reason [...] | Office | [facility] | Daljit Singletary, | Palpitations | | 2012 | Visit | CARDIOLOGY [address] | [address] | (Primary Dx); PVC | | | | [address] [place], | [place], | (premature | | | | [place] [address] | [place] [address] | ventricular | | | | [phone] | [phone] | contraction) | | | | | [...] present himself to the emergency department at [facility] in [place], [place]. Today, patient is apprehensive of the [...] tablet Take 1,000 mg by mouth Daily. [place]-3 Fatty Acids (SALMON OIL-1000 PO) CAPS, one [...] tablet Take 1,000 mg by mouth Daily. [place]-3 Fatty Acids (SALMON OIL-1000 PO) CAPS, one [...] Gay Date: December 21, 2012 : 1960 Bulk Pallet Builder: PARISA Velazquez Device Vocational Training Instructor: Alaitronic Sense (mV) Impedance (?) Capture (V) Capture (ms) A Lead 4-5.6 423 1.5 0.09 RV Lead >31.36 539 2.0 0.09 LV Lead Battery Impedance (?): 301 Battery Voltage (V): 2.8 W[place] Interval (ms): 140 AR Interval (ms): 210 VA Conduction: Mode Switch Events: N/A % of time: -CUSHION FORMER: 0.6 AP-CUSHION FORMER: 1.3 -VS: 23.9 AP-VS: 74.2 CUSHION FORMER: Magnetic Rate: 85 LINDA: 65 LEAH: Current [...] himself to the emerge ncy department at [facility] in [place], [place]. EKG showed normal sinus rhythm with [...] I will d iscuss this option with digital advertising specialist in [place]. 7. Followup in 2-4 weeks. Portions of this report were transcribed using voice recognition software. Every effort wa s made to ensure accuracy; however, inadvertent computerized dean of instruction errors may be pre sent. documented in [...] | | | | | [place] [address] | | | | | | [phone] | | | | | | | | +--------+---------+ + + + | 01/01/ | Office | Cardiology | [place], | | | 2020 | Visit | | PARISA Vernon [address] | | | | | | [place], | | | | | | [place] [address] | | | | | | [phone] | | | | | | | | +--------+---------+ + + + documented as of this encounter Results ECHO Complete (12/30/2012 4:08 PM PST) + + | Specimen | + + | | + + + + + | Narrative | Performed At | + + + | [facility] | [place] | | Department [address], [place] | [facility] | | [ rep ct [address]] [ rep ct [facility] | [facility] | | st zip] Signed | - IMAGING | | | | | Patient Name: MEO GAY W | | | Physician: MIGUELINA : 1960 Age: 52 Sex: M Unit | | | #: [id number] Exam Date: 12/30/12 Location: | | | IMG Report #: [id number] Page: | | | %(RAD)RES..mtdd.print.filter("pg") of %(RAD) | | | RES..mtdd.print.filter("tpg") | | | | | | Accession Number: [id number] | | | E C H O C A R D I O G R A P H Y R E P O R T | | | HEIGHT: 76" WEIGHT: 270# | | | FISH WARDEN: JAMEEL REFERRING DR: TIMMY DRAKE DR: | [...] | | | Transcribed Date/Time: 12/30/2012 16:34 Electronic Resources Librarian: | | | <<Signature on File>> | | | Daljit | | | MD ROSEMARY Singletary FASE01/02/13 0955 <Electronically signed by | | | Daljit Singletray MD, [facility], FACP, FASE, FASNC> Daljit | | | MD CLEOPATRA Singletary FASNanette 12/30/12 1608 Electronic Resources Librarian: Webmike | | | Mzeknizfpybul27/08/13 1634 MD ROSEMARY Newby | | | FASE | | + + + + + + + + | Performing | Address | [facility] | Phone Number | | Organization | | | | + + + + + | [facility] | [address] | [place] | [phone] | | [facility] | | [address] | | | - IMAGING | | | | + + + + + documented in this encounter Visit Diagnoses + + | Diagnosis | + + | Palpitations - Primary | + + | PVC (premature ventricular contraction) Other premature beats | + + documented in this encounter
--- OUTSIDE RECORDS SUMMARY | ~2019-12-06 | XMS | Encounter Summary ---
Demographics + + + | Address | [address] | | | [place] [address] | + + + | Home Phone [...] Providers + +------+ + | Care Aeronautical Engineering Technologist Name | Role | Phone [...] [place] | | | | | [place], [place] | [address] | | | | | [address] | [place] [address] | | | | | [phone] | [phone] | | | | | | | [...] | | | | | | [place] [address] | | | | | | [phone] | | | | | | | | +--------+---------+ + + + | 01/01/ | Office | Cardiology | [place], | | | 2019 | Visit | | PARISA Vernon [address] | | | | | | [place], | | | | | | [place] [address] | | | | | | [phone] | | | | | | | [...]
--- OUTSIDE RECORDS SUMMARY | ~2019-12-06 | XMS | Encounter Summary ---
Demographics + + + | Address | [address] | | | [place] [address] | + + + | Home Phone [...] Providers + +------+ + | Care Finisher Screwdown Name | Role | Phone | + [...] [address] | | | | | | [place], [place] | (Fax) | | | | | [address] | | | | | | [phone] | | | +--------+ + + + [...] | | | | | [place] [address] | | | | | | [phone] | | | | | | | | +--------+---------+ + + + | 01/01/ | Office | Cardiology | [place], | | | 2020 | Visit | | PARISA Vernon [address] | | | | | | [place], | | | | | | [place] [address] | | | | | | [phone] | | | | | | | | +--------+---------+ + + + documented as of this encounter Visit Diagnoses Not on filedocumented in this encounter"
--- OUTSIDE RECORDS SUMMARY | ~2019-12-06 | XMS | Encounter Summary ---
Demographics + + + | Address | [address] | | | [place] [address] | + + + | Home Phone [...] Team Providers + +------+ + | Care Debubblizer Name | Role | Phone | + [...] + | 03/24/ | Telephone | [facility] | Tenafly, | Other (chest pain) | | 2018 | | CARDIOLOGY [address] | PARISA [place] [address] | | | | | [place], | [place], | | | | | [place] [address] | [place] [address] | | | | | [phone] | | | | | | | [...] 12/18/ | Office | Gastroenterology | Darin Gandih | | | 2019 | Visit | | MD Jacek [address] | | | | | | [place] | | | | | | [place] [address] | | | | | | [phone] | | | | | | | | +--------+---------+ + + + | 01/01/ | Office | Cardiology | [place], | | | 2019 | Visit | | PARISA Vernon [address] | | | | | | [place] | | | | | | [place] [address] | | | | | | [phone] | | | | | | | | +--------+---------+ + + + documented as of this encounter Visit Diagnoses Not on filedocumented in this encounter"
--- OUTSIDE RECORDS SUMMARY | ~2019-12-06 | XMS | Encounter Summary ---
Demographics + + + | Address | [address] | | | [place] [address] | + + + | Home Phone [...] Providers + +------+ + | Care Administrative Services Officer Name | Role | Phone | + +------+ + PCP | Unavailable | + +------+ + Encounter Details +--------+ + + + + | Date | Type | Department | Care Team | Description | +--------+ + + + + | 06/12/ | [facility] | [facility] | Hunter Antunez, | | | 2007 - | Encounter | MED CTR ICU [address] | MD [address] | | | | | [place], | [place] | | | 06/15/ | | [place] [address] | [address] | | | 2007 | | [phone] | | | +--------+ + + + [...] | | | | | [place] [address] | | | | | | [phone] | | | | | | | | +--------+---------+ + + + | 01/01/ | Office | Cardiology | [place], | | | 2020 | Visit | | PARISA Vernon [address] | | | | | | [place], | | | | | | [place] [address] | | | | | | [phone] | | | | | | | | +--------+---------+ + + + documented as of this encounter Visit Diagnoses Not on filedocumented in this encounter"
--- OUTSIDE RECORDS SUMMARY | ~2019-12-06 | XMS | Encounter Summary ---
Demographics + + + | Address | [address] | | | [place] [address] | + + + | Home Phone [...] Team Providers + +------+ + | Care Hay Rake Operator Name | Role | Phone | [...] Closed | | Radiology | Diagnoses | Harri, | Pavel Mri | | | | | Diarrhea, | Emmanuel E, MD | [address] | | | | | unspecified | [address] | [place], | | | | | type | [place], [place] | [place] | | | | | Abdominal | [address] [place] | [address] | | | | | cramping | [place], [place] | Phone: | | | | | Generalized | [address] | [phone] | | | | | abdominal | Phone: | Fax: | | | | | pain | [phone] | [phone] | | | | | Procedures | Fax: | | | | | | CT Abdomen | [phone] | | | | | | Pelvis w | | | | | | | Contrast | | | +--------+--------+ + + + [...] + + | 03/29/ | Telephone | [facility] | Emmanuel Daniel MD | Diarrhea (Adult) | | 2019 | | GASTROENTEROLOGY | [address] [place], [place] | (stomach cramps and | | | | [address] [place] | [address] [place], [place] | liquid stool) | | | | [address] [place], [place] | [address] | | | | | [address] | | | | | | [phone] | | | +--------+ + + + [...] | | | | | [place] [address] | | | | | | [phone] | | | | | | | | +--------+---------+ + + + | 01/01/ | Office | Cardiology | [place], | | | 2020 | Visit | | PARISA Vernon [address] | | | | | | [place], | | | | | | [place] [address] | | | | | | [phone] | | | | | | | | +--------+---------+ + + + + +---------+--------+ + + | Name | Type | Priori | Associated Diagnoses | Order Schedule | | | | ty | | | + +---------+--------+ + + | T4, Free | Lab | Routin | Diarrhea, | 1 Occurrences | | | | e | unspecified type | starting 03/31/2019 | | | | | Abdominal cramping | until 06/29/2019 | | | | | Generalized | | | | | | abdominal pain | | + +---------+--------+ + + | Tissue | Lab | Routin | Diarrhea, | 1 Occurrences | | Transglutaminase | | e | unspecified type | starting 03/31/2019 | | (IgA + IgG) | | | Abdominal cramping | until 03/31/2020 | | | | | Generalized | | | | | | abdominal pain | | + +---------+--------+ + + | Gastrin | Lab | Routin | Diarrhea, | 1 Occurrences | | | | e | unspecified type | starting 03/31/2019 | | | | | Abdominal cramping | until 03/31/2020 | | | | | Generalized | | | | | | abdominal pain | | + +---------+--------+ + + | Lipase | Lab | Routin | Diarrhea, | Expected: 04/07/2019 | | | | e | unspecified type | (Approximate), | | | | | Abdominal cramping | Expires: 05/31/2019 | | | | | Generalized | | | | | | abdominal pain | | + +---------+--------+ + + | Vasoactive | Lab | Routin | Diarrhea, | 1 Occurrences | | Intestinal Peptide | | e | unspecified type | starting 03/31/2019 | | | | | Abdominal cramping | until 03/31/2020 | | | | | Generalized | | | | | | abdominal pain | | + +---------+--------+ + + | Calcitonin | Lab | Routin | Diarrhea, | 1 Occurrences | | | | e | unspecified type | starting 03/31/2019 | | | | | Abdominal cramping | until 03/31/2020 | | | | | Generalized | | | | | | abdominal pain | | + +---------+--------+ + + | 5 HIAA, Urine, 24Hr, | Lab | Routin | Diarrhea, | 1 Occurrences | | Quant | | e | unspecified type | starting 03/31/2019 | | | | | Abdominal cramping | until 03/31/2020 | | | | | Generalized | | | | | | abdominal pain | | + +---------+--------+ + + | CT Abdomen Pelvis w | Imaging | Routin | Diarrhea, | Expected: 04/14/2019 | | Contrast | | e | unspecified type | (Approximate), | | | | | Abdominal cramping | Expires: 03/31/2020 | | | | | Generalized | | | | | | abdominal pain | | + +---------+--------+ + + documented as of this encounter Visit Diagnoses + + | Diagnosis | + + | Diarrhea, unspecified type - Primary | + + | Abdominal cramping Abdominal pain, unspecified site | + + | Generalized abdominal pain Abdominal pain, generalized | + + documented in this encounter"
--- OUTSIDE RECORDS SUMMARY | ~2019-12-06 | XMS | Encounter Summary ---
Demographics + + + | Address | [address] | | | [place] [address] | + + + | Home Phone [...] Providers + +------+ + | Care Hand Collator Name | Role | Phone | + [...] 2019 | | GASTROENTEROLOGY | [address] [place], [place] | | | | | [address] [place] | [address] [place], [place] | | | | | [address] [place], [place] | [address] | | | | | [address] | | | | | | [phone] | | | +--------+ + + + [...] | | | | | [place] [address] | | | | | | [phone] | | | | | | | | +--------+---------+ + + + | 01/01/ | Office | Cardiology | [place], | | | 2019 | Visit | | PARISA Vernon [address] | | | | | | [place] | | | | | | [place] [address] | | | | | | [phone] | | | | | | | | +--------+---------+ + + + documented as of this encounter Visit Diagnoses Not on filedocumented in this encounter"
--- OUTSIDE RECORDS SUMMARY | ~2019-12-06 | XMS | Encounter Summary ---
Demographics + + + | Address | [address] | | | [place] [address] | + + + | Home Phone [...] Team Providers + +------+ + | Care Clerk Entry Level Name | Role | Phone | + [...] | Emmanuel E, MD | [address] [place] | | | | | unspecified | [address] | [place], | | | | | type | [place], [place] | [place] | | | | | Abdominal | [address] [place] | [address] | | | | | cramping | [place], [place] | Phone: | | | | | Generalized | [address] | [phone] | | | | | abdominal | Phone: | Fax: | | | | | pain | [phone] | [phone] | | | | | Procedures | Fax: | | | | | | CT Abdomen | [phone] | | | | | | Pelvis [...] 2019 | | GASTROENTEROLOGY | [address] [place], [place] | (stomach cramps and | | | | [address] [place] | [address] [place], [place] | liquid stool) | | | | [address] [place], [place] | [address] | | | | | [address] | | | | | | [phone] | | | +--------+ + + + [...] | | | | | [place] [address] | | | | | | [phone] | | | | | | | | +--------+---------+ + + + | 01/01/ | Office | Cardiology | [place], | | | 2020 | Visit | | PARISA [place] [address] | | | | | | [place], | | | | | | [place] [address] | | | | | | [phone] | | | | | | | [...]
--- OUTSIDE RECORDS SUMMARY | ~2019-12-06 | XMS | Encounter Summary ---
Demographics + + + | Address | [address] | | | [place] [address] | + + + | Home Phone [...] Team Providers + +------+ + | Care Precast Worker Name | Role | Phone | + +------+ + PCP | Unavailable | + +------+ + Encounter Details +--------+ + + + + | Date | Type | Department | Care Team | Description | +--------+ + + + + | 06/25/ | [facility] | [facility] | Daljit Singletary, | | | 2008 | Encounter | MED CTR XRAY [address] | [address] | | | | | [place] | [place], | | | | | [place] [address] | [place] [address] | | | | | [phone] | [phone] | | | | | | | [...] | | | | | [place] [address] | | | | | | [phone] | | | | | | | | +--------+---------+ + + + | 01/01/ | Office | Cardiology | [place], | | | 2020 | Visit | | PARISA [place] [address] | | | | | | [place], | | | | | | [place] [address] | | | | | | [phone] | | | | | | | | +--------+---------+ + + + documented as of this encounter Visit Diagnoses Not on filedocumented in this encounter"
--- OUTSIDE RECORDS SUMMARY | ~2019-12-06 | XMS | Encounter Summary ---
Demographics + + + | Address | [address] | | | [place] [address] | + + + | Home Phone [...] Providers + +------+ + | Care Metal Handler Name | Role | Phone | + [...] + + | 06/18/ | Emergency | [facility] | Dom Graham, | Cervical pain (neck) | | 2013 | | [facility] | MD [address] | (Primary Dx); | | | | CENTER [address] | [place] | Paresthesia and pain | | | | [place], [place] | [address] | of both upper | | | | [address] | | extremities | | | | [phone] | | | +--------+ + + + [...] cannot be sent through Care Everywhere.PARAESTHESIAS ( GREENLANDIC)NECK SPRAIN/STRAIN (GREENLANDIC)documented in this encounter Medications at Time of [...] + + + +---------+ + + | [facility] Fatty | CAPS, one capsule by | [...] | | | | | [place] [address] | | | | | | [phone] | | | | | | | | +--------+---------+ + + + | 01/01/ | Office | Cardiology | Silvia, | | | 2019 | Visit | | PARISA Vernon [address] | | | | | | [place] | | | | | | [place] [address] | | | | | | [phone] | | | | | | | [...] + | MISCELLANEOUS LAB | | | [phone] | + +---------+ + + | MISCELANIOUS LAB | | | [phone] | + +---------+ + + documented in this encounter Visit Diagnoses + + | Diagnosis | + + | Cervical pain (neck) - Primary Cervicalgia | + + | Paresthesia and pain of both upper extremities Disturbance of skin sensation | + + documented in this encounter
--- OUTSIDE RECORDS SUMMARY | ~2019-12-06 | XMS | Encounter Summary ---
Demographics + + + | Address | [address] | | | [place] [address] | + + + | Home Phone [...] Providers + +------+ + | Care Gun Synchronizer Name | Role | Phone | + +------+ + | Kirk French MD | PCP | | + +------+ + Encounter Details +--------+ + + + + | Date | Type | Department | Care Team | Description | +--------+ + + + + | 12/24/ | Orders Only | [facility] | Conversion | | | 2018 | | [facility] | Transaction, | | | | | PRIMARY CARE [address] | Provider Unknown | | | | | [address] | [phone] | | | | | [place] | | | | | | [address] | | | | | | [phone] | | | +--------+ + + + [...] | | | | | [place] [address] | | | | | | [phone] | | | | | | | | +--------+---------+ + + + | 01/01/ | Office | Cardiology | Silvia, | | | 2019 | Visit | | PARISA Vernon [address] | | | | | | [place], | | | | | | [place] [address] | | | | | | [phone] | | | | | | | [...] LAB | | [facility] | | + + + [...]
--- OUTSIDE RECORDS SUMMARY | ~2019-12-06 | XMS | Encounter Summary ---
Demographics + + + | Address | [address] | | | [place] [address] | + + + | Home Phone [...] Team Providers + +------+ + | Care Vat Operator Name | Role | Phone | [...] + | 06/24/ | Telephone | [facility] | Daljit Singletary, | Lab Order | | 2017 | | CARDIOLOGY [address] | MD [address] | | | | | [place], | [place], | | | | | [place] [address] | [place] [address] | | | | | [phone] | [phone] | | | | | | | [...] | | | | | | [place] [address] | | | | | | [phone] | | | | | | | | +--------+---------+ + + + | 01/01/ | Office | Cardiology | Silvia, | | | 2019 | Visit | | PARISA Vernon [address] | | | | | | [place], | | | | | | [place] [address] | | | | | | [phone] | | | | | | | [...] 06/24/2018, Expires: | | | | | ekwok coronary | 06/24/2019 | | | | | artery of ekwok | | | | | | heart without angina | | | | | | pectoris | | | | | | Hyperlipidemia, | | | | | | mixed | | + +------+--------+ + + documented as of this encounter Visit Diagnoses + + | Diagnosis | + + | Coronary artery disease involving ekwok coronary artery of ekwok heart without | | angina pectoris - Primary | + + | Hyperlipidemia, mixed Mixed hyperlipidemia | + + documented in this encounter"
--- OUTSIDE RECORDS SUMMARY | ~2019-12-06 | XMS | Encounter Summary ---
Demographics + + + | Address | [address] [place] [address] [address] | | | [place] [address] | + + + | Home Phone [...] [place] | | | | | [address] | | + + + + + Care Team Providers + +------+ + | Care Food Preparation Supervisor Name | Role | Phone | [...] | | incontinence | [facility] | [address] | | | | | of feces | PHYSICIAN | Mailcode: | | | | | Diarrhea, | MED GROUP | Center for | | | | | unspecified | [address] | Health and | | | | | | [address] | Healing, | | | | | | [place] | [facility] 2 | | | | | | [place], [place] | [place], [place] | | | | | | [address] | [address] | | | | | | Phone: | Phone: | | | | | | [phone] | [phone] | | | | | | Fax: | Fax: | | | | | | [phone] | [phone] | +--------+--------+ + + + + Encounter Details +--------+---------+ + + + | Date | Type | Department | Care Team | Description | +--------+---------+ + + + | 09/28/ | Office | Digestive Health | Bridgette Rios, | Chronic diarrhea | | 2019 | Visit | Center at [facility] [address] | [address] | (Primary Dx); | | | | [address] | [place], [place] | Abdominal cramping; | | | | Mailcode: [place] | [address] | Unintentional weight | | | | for Health and | [phone] | loss | | | | [facility], [facility] 2 | | | | | | [place], [place] | | | | | | [address] | | | | | | [phone] | | | +--------+---------+ + + + [...] lab orders to [facility] 2. supervisor net making the nortryptiline and take 1 tablet each [...] Gastroenterology Clinic [facility] ~ Initial Consultation / New Patient [...] inflammatory bowel disease. CT scan done through [facility] November show ed mild diverticulosis [...] of Present Illness: Here with his from [place] for second opinion regarding severe abdominal cramps, isreal rrhea and weight loss following a GI illness contracted during a trip to [facility]. He reports that 2 years ago he was traveling in [facility] and he had some suspicious seafood. He develo ps profound bloody diarrhea with severe abdominal pain. He was hospitalized in [facility] and w as treated with [...] file Gets together: Not on file Attends yazidism service: Not on file Active member of [...] Plan and Recommendations: 1. [facility] in [place] for stool studies as outlined above 2. If negative and symptoms persist, recommend capsule endoscopy (this could be completed b y local visual manager or he could return to [place] for this test) 3. Nortryptiline 25mg q HS with instruction to titrate to 50mg q HS after 2 weeks if tolera kevin Follow-Up: with local visual manager Counseling Time: I spent a total of 35 minutes with this patient, of which greater than 50 % of the time was spent in counseling. Specific issues that were discussed included a revie w of the disease, diagnostic tools that help in our management plans for the patient's chron ic diarrhea, abdominal cramping and weight loss and goals for treatment. Bridgette Rios MD Track Repair Supervisor Gastroenterology documented in this e ncounter Plan [...]
--- OUTSIDE RECORDS SUMMARY | ~2019-12-06 | XMS | Encounter Summary ---
Demographics + + + | Address | [address] | | | [place] [address] | + + + | Home Phone [...] Providers + +------+ + | Care Alarm Installer Name | Role | Phone | [...] + + | 08/14/ | Telephone | [facility] | Michael Amanda, | Appointment | | 2012 | | GROUP IMAGING [address] | DO [address] | | | | | [facility] | [place] | | | | | [place], [place] | [address] | | | | | [address] | | | | | | [phone] | | | +--------+ + + + [...] | | | | | | [place] [address] | | | | | | [phone] | | | | | | | | +--------+---------+ + + + | 01/01/ | Office | Cardiology | Silvia, | | | 2019 | Visit | | PARISA Vernon [address] | | | | | | [place], | | | | | | [place] [address] | | | | | | [phone] | | | | | | | | +--------+---------+ + + + documented as of this encounter Visit Diagnoses Not on filedocumented in this encounter"
--- OUTSIDE RECORDS SUMMARY | ~2019-12-06 | XMS | Encounter Summary ---
Demographics + + + | Address | [address] | | | [place] [address] | + + + | Home Phone [...] Providers + +------+ + | Care Cement Block Maker Name | Role | Phone | [...] | | CARDIOLOGY [address] | Janeen PUMP HOUSE ENGINEER [address] | | | | | [place], | [place], | | | | | [place] [address] | [place] [address] | | | | | [phone] | [phone] | | | | | | | [...] | | | | | | [place] [address] | | | | | | [phone] | | | | | | | | +--------+---------+ + + + | 01/01/ | Office | Cardiology | Silvia, | | | 2019 | Visit | | PARISA Vernon [address] | | | | | | [place], | | | | | | [place] [address] | | | | | | [phone] | | | | | | | | +--------+---------+ + + + documented as of this encounter Visit Diagnoses Not on filedocumented in this encounter"
--- OUTSIDE RECORDS SUMMARY | ~2019-12-06 | XMS | Encounter Summary ---
Demographics + + + | Address | [address] | | | [place] [address] | + + + | Home Phone [...] Team Providers + +------+ + | Care Paranormal Investigator Name | Role | Phone | [...] | | [address] | [place] [address] | | | | | Hodgeman[place]RISTOPH | [phone] | | | | | [address] | | | | | | [phone] | | | +--------+ + + + [...] | | | | | | [place] [address] | | | | | | [phone] | | | | | | | | +--------+---------+ + + + | 01/01/ | Office | Cardiology | Silvia, | | | 2019 | Visit | | PARISA Vernon [address] | | | | | | [place], | | | | | | [place] [address] | | | | | | [phone] | | | | | | | | +--------+---------+ + + + documented as of this encounter Visit Diagnoses Not on filedocumented in this encounter"
--- OUTSIDE RECORDS SUMMARY | ~2019-12-06 | XMS | Encounter Summary ---
Demographics + + + | Address | [address] | | | [place] [address] | + + + | Home Phone [...] Providers + +------+ + | Care Bindery Production Manager Name | Role | Phone [...] Provider Unknown | | | | | [place], [place] | [phone] | | | | | [address] | | | | | | [phone] | | | +--------+ + + + [...] + + + +---------+ + + | [place]-3 Fatty | CAPS, one capsule by | [...] | | | | | | [place] [address] | | | | | | [phone] | | | | | | | | +--------+---------+ + + + | 01/01/ | Office | Cardiology | Silvia, | | | 2019 | Visit | | PARISA Vernon [address] | | | | | | [place], | | | | | | [place] [address] | | | | | | [phone] | | | | | | | [...]
--- OUTSIDE RECORDS SUMMARY | ~2019-12-06 | XMS | Encounter Summary ---
Demographics + + + | Address | [address] | | | [place] [address] | + + + | Home Phone [...] [address] | | | | | [place], | [place], | | | | | [place] [address] | [place] [address] | | | | | [phone] | [phone] | | | | | | | [...] | | | | | [place] [address] | | | | | | [phone] | | | | | | | | +--------+---------+ + + + | 01/01/ | Office | Cardiology | Silvia, | | | 2019 | Visit | | PARISA Vernon [address] | | | | | | [place], | | | | | | [place] [address] | | | | | | [phone] | | | | | | | [...]
--- OUTSIDE RECORDS SUMMARY | ~2019-12-06 | XMS | Encounter Summary ---
Demographics + + + | Address | [address] | | | [place] [address] | + + + | Home Phone [...] Team Providers + +------+ + | Care Tree Puller Name | Role | Phone | + +------+ + PCP | Unavailable | + +------+ + Encounter Details +--------+ + + + + | Date | Type | Department | Care Team | Description | +--------+ + + + + | 02/21/ | [facility] | [facility] | Cristy Braun | | | 2008 | Encounter | MED CTR EMERGENCY | MD Ronald [address] | | | | | ROL[place] [address] | [facility], | | | | | [place] | [place] [address] | | | | | [address] | [phone] | | | | | [phone] | | | +--------+ + + + [...] | | | | | | [place] [address] | | | | | | [phone] | | | | | | | | +--------+---------+ + + + | 01/01/ | Office | Cardiology | Silvia, | | | 2020 | Visit | | PARISA Vernon [address] | | | | | | [place], | | | | | | [place] [address] | | | | | | [phone] | | | | | | | | +--------+---------+ + + + documented as of this encounter Visit Diagnoses Not on filedocumented in this encounter"
--- OUTSIDE RECORDS SUMMARY | ~2019-12-06 | XMS | Encounter Summary ---
Demographics + + + | Address | [address] | | | [place] [address] | + + + | Home Phone [...] Providers + +------+ + | Care Roll Scale Man Name | Role | Phone | [...] + + | 12/14/ | Telephone | [facility] | Emmanuel Daniel MD | Follow-up, Office | | 2019 | | GASTROENTEROLOGY | [address], [place] | Visit (wants to | | | | [address] [place] | [address] [place] | cancel his office | | | | [address] [place] | [address] | appointment today) | | | | [address] | | | | | | [phone] | | | +--------+ + + + [...] | | | | | [place] [address] | | | | | | [phone] | | | | | | | | +--------+---------+ + + + | 01/01/ | Office | Cardiology | Silvia, | | | 2019 | Visit | | PARISA Vernon [address] | | | | | | [place], | | | | | | [place] [address] | | | | | | [phone] | | | | | | | | +--------+---------+ + + + documented as of this encounter Visit Diagnoses Not on filedocumented in this encounter"
--- OUTSIDE RECORDS SUMMARY | ~2019-12-06 | XMS | Encounter Summary ---
Demographics + + + | Address | [address] [place] [address] [address] | | | [place] [address] | + + + | Home Phone [...] [place] | | | | | [address] | | + + + + + Care Team Providers + +------+ + | Care Form Layer Name | Role | Phone | [...] | | | | | diarrhea | [address] | | | | | | [address]a | [address] | | | | | | l weight | [place], [place] | | | | | | loss | [address] | | | | | | Procedures | Phone: | | | | | | CONSULT TO | [phone] | | | | | | NON - [facility] | Fax: | | | | | | PROVIDER | [phone] | | | | | | CONSULT [...] Center at [facility] [address] | MD [address] | change location of | | | | [address] | [place], [place] | referral ) | | | | Mailcode: Center | [address] | | | | | for Health and | [phone] | | | | | [facility] 2 | | | | | | [place], [place] | | | | | | [address] | | | | | | [phone] | | | +--------+ + + + [...]
--- OUTSIDE RECORDS SUMMARY | ~2019-12-06 | XMS | Encounter Summary ---
Demographics + + + | Address | [address] | | | [place] [address] | + + + | Home Phone [...] Team Providers + +------+ + | Care Chipper Machine Operator Name | Role | Phone [...] | | | | [place] | [address] | | | | | [address] | | | | | | [phone] | | | +--------+ + + + [...] | | | | | [place] [address] | | | | | | [phone] | | | | | | | | +--------+---------+ + + + | 01/01/ | Office | Cardiology | Silvia, | | | 2019 | Visit | | PARISA Vernon [address] | | | | | | [place], | | | | | | [place] [address] | | | | | | [phone] | | | | | | | | +--------+---------+ + + + documented as of this encounter Visit Diagnoses Not on filedocumented in this encounter"
--- OUTSIDE RECORDS SUMMARY | ~2019-12-06 | XMS | Encounter Summary ---
Demographics + + + | Address | [address] | | | [place] [address] | + + + | Home Phone [...] Team Providers + +------+ + | Care Sort Operations Supervisor Name | Role | Phone [...] | | | pain | [address] | [address] | | | | | Procedures | [place] | [place], | | | | | [place] Nuclear | [place], [place] | [place] | | | | | Stress Test | [address] | [address] | | | | | (Vasodilator | Phone: | Phone: | | | | | ) CHG | [phone] | [phone] | | | | | MYOCARDIAL | Fax: | Fax: | | | | | SPECT | [phone] | [phone] | | | | | MULTIPLE | [...] 2012 | | CARDIOLOGY [address] | PROJECT MANAGEMENT INSTRUCTOR [address] | interactions, chest | | | | [place] [place], | [place], [place] | pain) | | | | [place] [address] | [address] | | | | | [phone] | | | +--------+ + + + [...] | | | | | [place] [address] | | | | | | [phone] | | | | | | | | +--------+---------+ + + + | 01/01/ | Office | Cardiology | Silvia, | | | 2019 | Visit | | PARISA Vernon [address] | | | | | | [place], | | | | | | [place] [address] | | | | | | [phone] | | | | | | | | +--------+---------+ + + + documented as of this encounter Results [place] Nuclear Stress Test (Vasodilator) (12/07/2013 7:01 AM PST) + + | Specimen | + + | | + + + + + | Narrative | Performed At | + + + | [facility] | [place] | | [address] | [facility] | | [ rep [address]] [ rep [facility] | | st zip] Signed | - IMAGING | | | | | Patient Name: MOE GAY | | | Physician: JACKLYN : 1960 Age: 53 Sex: M Unit | | | #: [id number] Exam Date: 12/06/13 Location: | | | [facility] Report #: [id number] Page: | | | %(RAD)RES..mtdd.print.filter("pg") of %(RAD) | | | RES..mtdd.print.filter("tpg") | | | | | | Accession Number: [id number] | | | PERSANTINE SESTAMIBI STRESS TEST, [...] Transcribed Date/Time: 12/07/2013 08:18 | | | Mathematics Professor: <<Signature on File>> | | | | | | Daljit Singletary MD [facility]12/07/13 1321 <Electronically signed | | | by Daljit Singletary MD, [facility], FACP, FASE, FASWI> Daljit | | | MD Gemini [facility] 12/07/13 0701 Mathematics Professor: Jessica | | | Zkvrlbioevpab41/16/14 0818 PARISA Garcia | | + + + + + + + + | Performing | Address | City/State/Zipcode | Phone Number | | Organization | | | | + + + + + | [facility] | [address] | [place] | [phone] | | [facility] | | [address] | | | - IMAGING | | | | + + + + + documented in this encounter Visit Diagnoses + + | Diagnosis | + + | Other chest pain - Primary | + + documented in this encounter
--- OUTSIDE RECORDS SUMMARY | ~2019-12-06 | XMS | Encounter Summary ---
Demographics + + + | Address | [address] | | | [place] [address] | + + + | Home Phone [...] Team Providers + +------+ + | Care An/Sqq 89(V)15 Sonar System Journeyman Name | Role | Phone | + [...] + + | 06/26/ | Office | [facility] | AdjuntasJacek, | Diplopia (Primary | | 2012 | Visit | [facility] | [address] | Dx); Symptomatic | | | | [address] | [place] | PVCs; Hypertension | | | | [place], [place] | [address] | | | | | [address] | | | | | | [phone] | | | +--------+---------+ + + + [...] Double vision will affect your ability to pricing director distance. This means it will be harder [...] or, difficulty with vision, speech or walking [address] [place] [address]. All rights reserve d. This information is [...] from his pain clinic visit in the [facility] on Wednesday or he developed [...] double vision. He was evaluated by Dr Shasta and had a normal eye exam, nor [...] tablet by mouth Daily. 30 tablet 6 [place]-3 Fatty Acids (SALMON OIL-1000 PO) CAPS, one [...] a follow-up on his right eye problem.Rob bachvarsha signed by Kyra Salas LPN at 06/26/2013 [...] | | | | | [place] [address] | | | | | | [phone] | | | | | | | | +--------+---------+ + + + | 01/01/ | Office | Cardiology | [place]via, | | | 2019 | Visit | | PARISA Vernon [address] | | | | | | [place] | | | | | | [place] [address] | | | | | | [phone] | | | | | | | [...] + | [facility] | [address] | [place], [place] | [phone] | | [facility] | | [address] | | | - LABORATORY | | | | + + + + + | [facility] | [address] | [place], [place] | | | [facility] | | [address] | | | - LABORATORY | | [...] + | [facility] | [address] | [place] | [phone] | | [facility] | | [address] | | | - LABORATORY | | | | + + + + + | [facility] | [address] | [place] | | | [facility] | | [address] | | | - LABORATORY | | | | + + + + + TSH (06/26/2013 3:07 PM PDT) + + + + + + | Component | Value | Ref Range | Performed | Pathologist | | | | | At | Signature | + + + + + + | TSH | 1.23Comment: Testing | 0.34 - 5.60 | [facility] | | | | performed on the Javid | uIU/mL | [facility] | | | | Aldo Access | [...] + | [facility] | [address] | [place], [place] | [phone] | | [facility] | | [address] | | | - LABORATORY | | | | + + + + + | [facility] | [address] | [place] | | | [facility] | | [address] | | | - LABORATORY | | | | + + + + + documented in this encounter Visit Diagnoses + + | Diagnosis | + + | Diplopia - Primary | + + | Symptomatic PVCs Other premature beats | + + | Hypertension Unspecified essential hypertension | + + documented in this encounter
--- OUTSIDE RECORDS SUMMARY | ~2019-12-06 | XMS | Encounter Summary ---
Demographics + + + | Address | [address] | | | [place] [address] | + + + | Home Phone [...] Providers + +------+ + | Care Production Intern Name | Role | Phone | + +------+ + PCP | Unavailable | + +------+ + Encounter Details +--------+ + + + + | Date | Type | Department | Care Team | Description | +--------+ + + + + | 06/14/ | [facility] | [facility] | Kennethshaistatesha Shaistakenneth, | | | 2008 - | Encounter | MED CTR MP INTRA OP | [address] | | | | | [address] | [place], | | | 06/15/ | | [place] | [place] [address] | | | 2008 | | [address] | [phone] | | | | | [phone] | | | +--------+ + + + [...] W | | | | | | [address] [place] | | | | | | [place] [address] | | | | | | [phone] | | | | | | | | +--------+---------+ + + + | 01/01/ | Office | Cardiology | [place], | | | 2020 | Visit | | PARISA Vernon [address] | | | | | | [place], | | | | | | [place] [address] | | | | | | [phone] | | | | | | | | +--------+---------+ + + + documented as of this encounter Visit Diagnoses Not on filedocumented in this encounter"
--- OUTSIDE RECORDS SUMMARY | ~2019-12-06 | XMS | Encounter Summary ---
Demographics + + + | Address | [address] | | | [place] [address] | + + + | Home Phone [...] Team Providers + +------+ + | Care Promotion Writer Name | Role | Phone | [...] + + | 08/23/ | Telephone | [facility] | AnshujohnsoncherelleDaljit, | Other (edema is | | 2015 | | CARDIOLOGY [address] | MD [address] [place] | blood clots) | | | | [place], | [place], | | | | | [place] [address] | [place] [address] | | | | | [phone] | [phone] | | | | | | | [...] | | | | | [place] [address] | | | | | | [phone] | | | | | | | | +--------+---------+ + + + | 01/01/ | Office | Cardiology | [place]via, | | | 2019 | Visit | | PARISA Vernon [address] | | | | | | [place], | | | | | | [place] [address] | | | | | | [phone] | | | | | | | | +--------+---------+ + + + documented as of this encounter Visit Diagnoses Not on filedocumented in this encounter"
--- OUTSIDE RECORDS SUMMARY | ~2019-12-06 | XMS | Encounter Summary ---
Demographics + + + | Address | [address] | | | [place] [address] | + + + | Home Phone [...] Providers + +------+ + | Care Furnace Process Supervisor Name | Role | Phone [...] Amanda, | | | 2013 | | [facility] | DO [address] | | | | | [address] | [place] | | | | | [place] | [address] | | | | | [address] | | | | | | [phone] | | | +--------+ + + + [...] | | | | | [place] [address] | | | | | | [phone] | | | | | | | | +--------+---------+ + + + | 01/01/ | Office | Cardiology | [place], | | | 2019 | Visit | | PARISA Vernon [address] | | | | | | [place], | | | | | | [place] [address] | | | | | | [phone] | | | | | | | [...] + + + | EXTERNAL LAB: PITO Weiss | 07/26/2014 | | Results for this | | | e | | | procedure are in the | | | | | | results section. | + +--------+ + + + | EXTERNAL LAB: TYLER Weiss | 07/26/2014 | | Results for this | | | e | | | procedure are in the | | | | | | results section. | + +--------+ + + + | EXTERNAL LAB: NKECHI Weiss | 07/26/2014 | | Results for this [...] + | [facility] | [address] | [place], [place] | [phone] | | [facility] | | [address] | | | - LABORATORY | | | | + + + + + | [facility] | [address] | [place] | | | [facility] | | [address] | | | - LABORATORY | | [...] | | | | | | | Salvadorean, | | | | | | External [...]
--- OUTSIDE RECORDS SUMMARY | ~2019-12-06 | XMS | Encounter Summary ---
Demographics + + + | Address | [address] | | | [place] [address] | + + + | Home Phone [...] Providers + +------+ + | Care Animal Science Instructor Name | Role | Phone | + +------+ + PCP | Unavailable | + +------+ + Encounter Details +--------+ + + + + | Date | Type | Department | Care Team | Description | +--------+ + + + + | 10/29/ | Hospital | [facility] | Pia Akhtar | | | 2003 | Encounter | CONVERSION DEP [address] | MD [address] | | | | | [address] | [address] | | | | | [place] | [place] [address] | | | | | [address] | [phone] | | | | | [phone] | | | +--------+ + + + [...] | | | | | [place] [address] | | | | | | [phone] | | | | | | | | +--------+---------+ + + + | 01/01/ | Office | Cardiology | Silvia, | | | 2020 | Visit | | PARISA Vernon [address] | | | | | | [place], | | | | | | [place] [address] | | | | | | [phone] | | | | | | | | +--------+---------+ + + + documented as of this encounter Visit Diagnoses Not on filedocumented in this encounter"
--- OUTSIDE RECORDS SUMMARY | ~2019-12-06 | XMS | Encounter Summary ---
Demographics + + + | Address | [address] | | | [place] [address] | + + + | Home Phone [...] Team Providers + +------+ + | Care Lathe Set Up Person Name | Role | [...] | CARDIOLOGY [address] | [address] | Interrogation | | | | [place], | [place], | (Primary Dx); | | | | [place] [address] | [place] [address] | Presence of | | | | [phone] | [phone] | permanent cardiac | | | | [...] | | | | | [place] [address] | | | | | | [phone] | | | | | | | | +--------+---------+ + + + | 01/01/ | Office | Cardiology | [place] | | | 2020 | Visit | | PARISA Vernon [address] | | | | | | [place], | | | | | | [place] [address] | | | | | | [phone] | | | | | | | [...] remote PDF scanned into | | | [facility] for remote interrogation results. Data [...]
--- OUTSIDE RECORDS SUMMARY | ~2019-12-06 | XMS | Encounter Summary ---
Demographics + + + | Address | [address] | | | [place] [address] | + + + | Home Phone [...] Team Providers + +------+ + | Care Flatwork Finisher Hand Name | Role | Phone | [...] 2012 | | CARDIOLOGY [address] | DISPATCHER [employer]ENT[employer] [address] | | | | | [place], | [place], [place] | | | | | [place] [address] | [address] | | | | | [phone] | | | +--------+ + + + [...] | | | | | [place] [address] | | | | | | [phone] | | | | | | | | +--------+---------+ + + + | 01/01/ | Office | Cardiology | [place], | | | 2019 | Visit | | PARISA Vernon [address] | | | | | | [place], | | | | | | [place] [address] | | | | | | [phone] | | | | | | | | +--------+---------+ + + + documented as of this encounter Visit Diagnoses Not on filedocumented in this encounter"
--- OUTSIDE RECORDS SUMMARY | ~2019-12-06 | XMS | Encounter Summary ---
Demographics + + + | Address | [address] | | | [place] [address] | + + + | Home Phone [...] Team Providers + +------+ + | Care Sleep Technician Name | Role | Phone | [...] Office | [facility] | Bahman Gant MD | Other dysphagia | | 2013 | Visit | OTOLARYNGOLOGY [address] | [address] [place] | (Primary Dx) | | | | [address] | [address] [place], | | | | | [place], [place] | [place] [address] | | | | | [address] | [phone] | | | | | [phone] | | | +--------+---------+ + + + [...] MD - 09/13/2013 5:46 PM PDTSee dictation #[id number] signed by Joseph Gant MD at 09/13/2013 5:52 PM Bahman Lamb MD - 09/13/2013 12:00 AM PDT ENT AND AUDIOLOGY [address] [facility] [address] [place] [address] FAX: [phone] OFFICE VISIT The patient gives a history [...] Gant MD GM / MS JOB #: [id number] signed by Bahman Gant MD at 09/14/2013 [...] | | | | | [place] [address] | | | | | | [phone] | | | | | | | | +--------+---------+ + + + | 01/01/ | Office | Cardiology | [place], | | | 2019 | Visit | | PARISA Vernon [address] | | | | | | [place], | | | | | | [place] [address] | | | | | | [phone] | | | | | | | [...]
--- OUTSIDE RECORDS SUMMARY | ~2019-12-06 | XMS | Encounter Summary ---
Demographics + + + | Address | [address] | | | [place] [address] | + + + | Home Phone [...] Team Providers + +------+ + | Care Lion Hunter Name | Role | Phone | [...] Provider Unknown | | | | | [place], [place] | [phone] | | | | | [address] | | | | | | [phone] | | | +--------+ + + + [...] + + + +---------+ + + | Jones-3 Fatty | CAPS, one capsule by | [...] | | | | | | [place] [address] | | | | | | [phone] | | | | | | | | +--------+---------+ + + + | 01/01/ | Office | Cardiology | [place], | | | 2019 | Visit | | PARISA Vernon [address] | | | | | | [place], | | | | | | [place] [address] | | | | | | [phone] | | | | | | | [...]
--- OUTSIDE RECORDS SUMMARY | ~2019-12-06 | XMS | Encounter Summary ---
Demographics + + + | Address | [address] | | | [place] [address] | + + + | Home Phone [...] Providers + +------+ + | Care Die Maker Apprentice Name | Role | Phone [...] | type | [address] | [address] | | | | | Procedures | [place] | [place], | | | | | FUP | [place], [place] | [place] [address] | | | | | | [address] | Phone: | | | | | | Phone: | [phone] | | | | | | [phone] | Fax: | | | | | | Fax: | [phone] | | | | | | [phone] | | +--------+ + + + + [...] | | | | CENTER [address] | [address] [place] | (Primary Dx) | | | | [place], [place] | [place] [address] | | | | | [address] | [phone] | | | | | [phone] | | | +--------+ + + + [...] cannot be sent through Care Everywhere.Angina, Stable (Honduran)documented in this encounter Medications at Time of [...] + + + +---------+ + + | Atkins-3 Fatty | CAPS, one capsule by | [...] | | | | | [place] [address] | | | | | | [phone] | | | | | | | | +--------+---------+ + + + | 01/01/ | Office | Cardiology | [place], | | | 2019 | Visit | | PARISA Vernon [address] | | | | | | [place] | | | | | | [place] [address] | | | | | | [phone] | | | | | | | [...] | | | | ANGELA MARADIAGA MD ([id number]) | | | | | | on [...] | | | | | | [employer] | | | | | [...] ST. | [address] | [place] | [phone] | | [facility] | | [address] | | | - LABORATORY | | [...] [address] | [place] | [phone] | | [facility] | | [address] | | | - LABORATORY | | [...] | | | | | | [employer] | | | | | [...] [address] | [place] | [phone] | | [facility] | | [address] | | | - LABORATORY | | [...] | | | FILTRATION | mL/min/1.73m2 | [facility] | | | CHINESE | RATE,ESTIMATED | | MEDICAL | | | | mL/min/1.68o5Xrya than | | CENTER - | | [...] + | [facility] | [address] | [place] | [phone] | | [facility] | | [address] | | | - LABORATORY | | [...] [address] | [place] | [phone] | | [facility] | | [address] | | | - LABORATORY | | [...] | | | | ANGELA MARADIAGA MD ([id number]) | | | | | | on [...]
--- OUTSIDE RECORDS SUMMARY | ~2019-12-06 | XMS | Encounter Summary ---
Demographics + + + | Address | [address] | | | [place] [address] | + + + | Home Phone [...] Team Providers + +------+ + | Care Grounds Manager Name | Role | Phone | [...] | | CARDIOLOGY [address] | Janeen HARNESS RACING HANDICAPPER [address] | mixed | | | | [place], | [place], | | | | | [place] [address] | [place] [address] | | | | | [phone] | [phone] | | | | | | | [...] ANNA | | | | | | [place] [address] | | | | | | [phone] | | | | | | | | +--------+---------+ + + + | 01/01/ | Office | Cardiology | [place], | | | 2019 | Visit | | PARISA Vernon [address] | | | | | | [place], | | | | | | [place] [address] | | | | | | [phone] | | | | | | | | +--------+---------+ + + + documented as of this encounter Visit Diagnoses + + | Diagnosis | + + | Hyperlipidemia, mixed Mixed hyperlipidemia | + + documented in this encounter"
--- OUTSIDE RECORDS SUMMARY | ~2019-12-06 | XMS | Encounter Summary ---
Demographics + + + | Address | [address] | | | [place] [address] | + + + | Home Phone [...] Team Providers + +------+ + | Care Caterpillar Mechanic Name | Role | Phone | + +------+ + | Kirk French MD | PCP | | + +------+ + Encounter Details +--------+ + + + + | Date | Type | Department | Care Team | Description | +--------+ + + + + | 10/25/ | Hospital | [facility] | Kirk French | Aneurysm (HCC) | | 2017 | Encounter | MED CTR ULTRASOUND | D, MD [address] | | | | | [address] [place] | [address] | | | | | [place], [place] | [place] [address] | | | | | [address] | [phone] | | | | | [phone] | | | | | | | [...] | | | | | [place] [address] | | | | | | [phone] | | | | | | | | +--------+---------+ + + + | 01/01/ | Office | Cardiology | [place], | | | 2019 | Visit | | PARISA Vernon [address] | | | | | | [place], | | | | | | [place] [address] | | | | | | [phone] | | | | | | | | +--------+---------+ + + + documented as of this encounter Visit Diagnoses + + | Diagnosis | + + | Aneurysm (HCC) Aneurysm of unspecified site | + + documented in this encounter"
--- OUTSIDE RECORDS SUMMARY | ~2019-12-06 | XMS | Encounter Summary ---
Demographics + + + | Address | [address] | | | [place] [address] | + + + | Home Phone [...] Providers + +------+ + | Care Project Architect Name | Role | Phone | [...] [place], [place] | | | | | [place] | | [address] Phone: | | | | | CYSTO/URETER | | [phone] | | | | | O | | Fax: | | | | | W/LITHOTRIPS | | [phone] | | | | | Y &INDWELL [...] + + | 04/13/ | Surgery | [facility] | Matthew Uriarte | Cystoscopy, Left | | 2018 | | MED CTR OR INTRA OP | Dahl, MD [address] | ureteroscopy with | | | | [address] | [place] | laser lithotripsy, | | | | [place] | [address] | Left ureteral stent | | | | [address] | | placement | | | | [phone] | | | +--------+---------+ + + + [...] Care Everywhere.Kidney Stones, Treating: Ureteroscopic Stone Removal (Montenegrin)Stents, Ureteral (Montenegrin)documented in this encounter Medications at Time of [...] + + + +---------+ + + | [place]-3 Fatty | CAPS, one capsule by | [...] | | | | | | | port gamble coronary | | | | | | | artery of port gamble | | | | | | | [...] | | | | | [place] [address] | | | | | | [phone] | | | | | | | | +--------+---------+ + + + | 01/01/ | Office | Cardiology | [place], | | | 2019 | Visit | | PARISA Vernon [address] | | | | | | [place] | | | | | | [place] [address] | | | | | | [phone] | | | | | | | [...] [facility] | | | | | | at:[phone]. | | | | + + + [...] [address], | REFERENCE LAB | | [place], [place] [address] Bindery Cutter Operator: Yeny Rios MD, Phone: | ARSH [facility]ST[facility]ON | | [phone] | | + + + + + + + + | Performing | Address | City/State/Zipcode | Phone Number | | Organization | | | | + + + + + | REFERENCE LAB | [address] | [place] [address] | [phone] | | [facility] | [address] [...] [address] | [place] | [phone] | | [facility] | | [address] | | | - LABORATORY | | [...] | [address] | [place], [place] | [phone] | | [facility] | | [address] | | | - LABORATORY | | | | + + + + + Marcelina CHOWDHURY (04/13/2019 7:07 AM PDT) + + + [...] | [address] | [place], [place] | [phone] | | [facility] | | [address] | | | - LABORATORY | | | | + + + + + PTT (04/13/2019 7:07 AM PDT) + +-------+ + + + | Component | Value | Ref Range | Performed | Pathologist | | | | | At | Signature | + +-------+ + + + | aPTT | 34 | 22 - 36 seconds | [facility] | | | | | [...] [address] | [place] | [phone] | | [facility] | | [address] | | | - LABORATORY | | [...] | 0.92 | 0.70 - 1.30 | [facility] | | | | | mg/dL | [facility] | | | | | | MEDICAL | | | | | | CENTER - | | | | | | LABORATORY | | + + + + + + | eGFR if not | >60Comment: GLOMERULAR | >=60 | [facility] | | | | FILTRATION | mL/min/1.73m2 | [facility] | | | [place] | RATE,ESTIMATED | | MEDICAL | | | | mL/min/1.13y3Swjb than | | CENTER - | | [...] [address] | [place] | [phone] | | [facility] | | [address] | | | - LABORATORY | | [...] day), First | | | dose on [facility] 04/13/19 at 1400, | | | Start 8 hours after pre-op dose., | | | Post-op/Phase II | | + +---+ | | | + +---+ | albuterol 2.5 mg/3 mL nebulizer | | | solution 2.5 mg 2.5 mg, | | | Nebulization, ONCE PRN, Wheezing, | | | Starting [facility] 04/13/19 at 0917, | | | For [...] HR < 40, | | | Starting [facility] 04/13/19 at 0917, For | | | [...] | | | | | | | wvwzhs-cki-znsij use of at least | | | [...]
--- OUTSIDE RECORDS SUMMARY | ~2019-12-06 | XMS | Encounter Summary ---
Demographics + + + | Address | [address] | | | [place] [address] | + + + | Home Phone [...] Providers + +------+ + | Care Media Intern Name | Role | Phone | + +------+ + | Kirk French MD | PCP | | + +------+ + Encounter Details +--------+ + + + + | Date | Type | Department | Care Team | Description | +--------+ + + + + | 12/24/ | Anesthesia | [facility] | Jarett Barakat | | | 2018 | Event | MED CTR MP INTRA OP | P, MD [address] | | | | | [address] | [place], [place] | | | | | [place], [place] | [address] | | | | | [address] | [phone] | | | | | [phone] | | | | | | | Arthur Wesley, | | | | | | [address] | | | | | | [place], [place] | | | | | | [address] | | | | | | | [...] 12/24/17 1435 by | | eral | zkbz-utm-geevdn catheter system; | Desmond Teresa RN | [...] | | | | | [place] [address] | | | | | | [phone] | | | | | | | | +--------+---------+ + + + | 01/01/ | Office | Cardiology | [place], | | | 2019 | Visit | | PARISA Vernon [address] | | | | | | [place] | | | | | | [place] [address] | | | | | | [phone] | | | | | | | [...]
--- OUTSIDE RECORDS SUMMARY | ~2019-12-06 | XMS | Encounter Summary ---
Demographics + + + | Address | [address] | | | [place] [address] | + + + | Home Phone [...] Team Providers + +------+ + | Care Edging Supervisor Name | Role | Phone | + +------+ + | Kirk French MD | PCP | | + +------+ + Encounter Details +--------+ + + + + | Date | Type | Department | Care Team | Description | +--------+ + + + + | 06/03/ | Hospital | [facility] | Conversion | Back pain, | | 2014 | Encounter | CONVERSION DEP [address] | Transaction, | unspecified location | | | | [address] | Provider Unknown | | | | | [place], [place] | [phone] | | | | | [address] | (Fax) | | | | | [phone] | | | +--------+ + + + [...] + + + +---------+ + + | Nu [place]-3 Fatty | CAPS, one capsule by | [...] | | | | | | | #[id number], exp 07/2016 | | | | | [...] | | | | | [place] [address] | | | | | | [phone] | | | | | | | | +--------+---------+ + + + | 01/01/ | Office | Cardiology | [place], | | | 2019 | Visit | | PARISA Vernon [address] | | | | | | [place], | | | | | | [place] [address] | | | | | | [phone] | | | | | | | [...]
--- OUTSIDE RECORDS SUMMARY | ~2019-12-06 | XMS | Encounter Summary ---
Demographics + + + | Address | [address] | | | [place] [address] | + + + | Home Phone [...] Providers + +------+ + | Care Fire Control Technician G Name | Role | Phone | + [...] | 10/26/ | Refill | [facility] | Kirk French | Medication Refill | | 2019 | | GASTROENTEROLOGY | MD Brea [address] | | | | | [address] [place] | [address] | | | | | [address] [place], [place] | [place] [address] | | | | | [address] | [phone] | | | | | [phone] | | | +--------+--------+ + + + [...] [address] | | | | | | [address] | | | | | | [place] [address] | | | | | | [phone] | | | | | | | | +--------+---------+ + + + | 01/01/ | Office | Cardiology | [place], | | | 2019 | Visit | | PARISA Vernon [address] | | | | | | [place] | | | | | | [place] [address] | | | | | | [phone] | | | | | | | | +--------+---------+ + + + documented as of this encounter Visit Diagnoses Not on filedocumented in this encounter"
--- OUTSIDE RECORDS SUMMARY | ~2019-12-06 | XMS | Encounter Summary ---
Demographics + + + | Address | [address] | | | [place] [address] | + + + | Home Phone [...] Providers + +------+ + | Care Roll Dough Divider Name | Role | Phone | + +------+ + | Kirk French MD | PCP | | + +------+ + Encounter Details +--------+---------+ + + + | Date | Type | Department | Care Team | Description | +--------+---------+ + + + | 12/24/ | Surgery | [facility] | Emmanuel Daniel MD | EGD | | 2018 | | MED CTR MP INTRA OP | [address], [place] | | | | | [address] | [address] [place], [place] | | | | | [place], [place] | [address] | | | | | [address] | | | | | | [phone] | | | +--------+---------+ + + + [...] + + + +---------+ + + | [place]-3 Fatty | CAPS, one capsule by | [...] | | | | | | [place] [address] | | | | | | [phone] | | | | | | | | +--------+---------+ + + + | 01/01/ | Office | Cardiology | [place], | | | 2019 | Visit | | PARISA Vernon [address] | | | | | | [place], | | | | | | [place] [address] | | | | | | [phone] | | | | | | | [...] + + | Performed at: 01 - [facility] [address], | REFERENCE LAB | | [place], [place] [id number] Manager Traffic: William Andrew MD, Phone: | ARSH - KINA | | [phone] | | + + + + + + + + | Performing | Address | City/State/Zipcode | Phone Number | | Organization | | | | + + + + + | REFERENCE LAB | [address] | [place] [address] | [phone] | | [facility] | [address] | | [...] + | [facility] | [address] | [place] | [phone] | | [facility] | | [address] | | | - LABORATORY | | [...] | | | Aeromonas, Plesiomonas, | | [facility] | | | | E. coli O157 or | | MEDICAL | | | | Yersinia isolated. | | CENTER - | | | | | | LABORATORY | | + + + + + + | Culture | 4+ Usual FloraComment: | | PROVIDERAULE | | | | Consistent with usual | | [facility] | | | | enteric michelle. [...] + | [facility] | [address] | [place] | [phone] | | [facility] | | [address] | | | - LABORATORY | | [...] | [address] | [place], [place] | [phone] | | [facility] | | [address] | | | - LABORATORY | | [...] + + | Performed at: 01 - [facility] [address], | REFERENCE LAB | | [place], [place] [address] Manager Traffic: William Andrew MD, Phone: | [facility] | | [phone] | | + + + + + + + + | Performing | Address | City/State/Zipcode | Phone Number | | Organization | | | | + + + + + | REFERENCE LAB | [address] | [place] [address] | [phone] | | [facility] | Drive [address] | [place] | [phone] | | [facility] | | [address] | | | - LABORATORY | | [...] ST. | [address] | [place] | [phone] | | [facility] | | [address] | | | - LABORATORY | | [...] [address] | [place] | [phone] | | [facility] | | [address] | | | - LABORATORY | | [...] [address] | [place] | [phone] | | [facility] | | [address] | | | - LABORATORY | | [...] + | [facility] | [address] | [place] | [phone] | | [facility] | | [address] | | | - LABORATORY | | | | + + + + + EGD (12/24/2017 1:19 PM PST) + + | Specimen | + + | | + + + + -+ | Narrative | Performed At | + + -+ | | [facility] | | GastroenterologyPatient Name: Moe Venegas Date: 12/24/2017 | PROVATION | | 1:19 PMMRN: [id number] #: [id number] of : | | | 9Admit Type: AmbulatoryAge: 57Room: [facility] 01Gender: MaleNote | | | Status: FinalizedAttending MD: Emmanuel Daniel , [facility]: | | | Upper GI endoscopyIndications: Diarrhea, Weight | | | lossProviders: Emmanuel Daniel MD, Maria Isabel Morris RN, | | | Kim Hicks, Sales Promotion Manager, [place] | | | Sapna Barakat MD (Anesthesia [...] the anesthesiologist and | | | the staking technician in the endoscopy suite. Mental Status [...] PMScope Out: 1:31:13 PM | | | [facility], [address] [facility] | | | [place] [address] | | | - Discharge patient to [...] |Scope Out: 1:31:13 PM | | | [facility], [address] [place], [place] | | | [address] | | + + -+ + +---------+ [...] 12/24/2017 | [facility]OVATION | | 1:17 PMMRN: [id number] #: [id number] of : | | | 9Admit Type: AmbulatoryAge: 57Room: [facility] 01Gender: MaleNote | | | Status: FinalizedAttending MD: Emmanuel Daniel , MDProcedure: | | | ColonoscopyIndications: Clinically significant diarrhea of | | | unexplained originProviders: Emmanuel Daniel MD, Maria Isabel | | | Arturo, RN, Kim Hicks, Sales Promotion Manager, | | | Jarett Barakat MD (Anesthesia [...] | | | the anesthesiologist and the staking technician in the endoscopy suite. | | [...] Scope In: 1:32:55 PMScope Out: 1:48:57 PM [facility] | | | [address] [address] | | | [phone] | | | - Await pathology results. [...] |Scope Out: 1:48:57 PM | | | [facility], [address] [place] [address] | | | [address] | | + + -+ + +---------+ [...] colonic mucosa with focal adenomatous change. CLR:cox branson:C2NR | | | GROSS DESCRIPTION: Received in [...] Received in formalin labeled | | | "Brea Nelson." and labeled "C, bx TI" on the requisition are | | | six matias-pink and lin colored tissue fragments measuring from 0.5 cm, | | | submitted, all in (C1). D. Received in formalin labeled "Moe | | | [facility]" and labeled "D. ascending colon bx" on the | | | requisition are nine pink-lin tissue fragments measuring from 0.15-0.5 | | | cm, submitted, all in (D1). ka:CLR:cox branson ADDITIONAL NOTES: | | | Immunohistochemical studies were performed on this case with the | | | appropriate positive controls that react as expected. This test was | | | developed and its performance characteristics determined by [facility] | | | [facility]. It has not been cleared or approved by the U.S. Food | | | and Drug Administration. The FDA has determined that such clearance | | | or approval is not necessary. This test is used for clinical | | | purposes. It should not be regarded as investigational or for | | | research. [facility] is certified under the Clinical | | | Laboratory Improvement Amendments of 1988 (CLIA) as qualified to | | | perform high complexity clinical laboratory testing. This assay | | | has not been validated for specimens that have been decalcified. | | | PERFORMING LABORATORY: Tissue processing and slide preparation were | | | performed by [facility], [address] | | | [place] [address] ([place] Worker: Evan Frausto M.D. CLIA#: | | | [id number]). Professional interpretation was performed by [facility] | | [facility], [address], [place] [address] | | | ([place] Worker: Evan Frausto M.D.; CLIA#: [id number]). | | | Diagnostician: Rafael Bales MD [...]
--- OUTSIDE RECORDS SUMMARY | ~2019-12-06 | XMS | Encounter Summary ---
Demographics + + + | Address | [address] [place] [address] [address] | | | [place] [address] | + + + | Home Phone [...] [place] | | | | | [address] | | + + + + + Care Team Providers + +------+ + | Care Behavior Analyst Name | Role | Phone | [...] | | | | | Unintentiona | [place], [place] | | | | | | l weight | [address] | | | | | | loss | Phone: | | | | | | Procedures | [phone] | | | | | | CONSULT TO | Fax: | | | | | | NON - IVETTE | [phone] | | | | | | PROVIDER [...] 2019 | | Center at [facility] [address] | MD [address] | normal, recommend | | | | [address] | [place], [place] | hyoscyamine) | | | | Mailcode: [place] | [address] | | | | | for Health and | [phone] | | | | | [facility], [facility] [address] | | | | | | [place], [place] | | | | | | [address] | | | | | | [phone] | | | +--------+ + + + [...]
--- OUTSIDE RECORDS SUMMARY | ~2019-12-06 | XMS | Encounter Summary ---
Demographics + + + | Address | [address] [place] [address] [address] | | | [place] [address] | + + + | Home Phone [...] [place] | | | | | [address] | | + + + + + Care Team Providers + +------+ + | Care Cocktail Lounge Manager Name | Role | Phone | [...] Yao | | | | | at [facility] | [facility] | | | | | [address] | [place] [address] | | | | | Loop Mailcode: | | | | | | [id number] Yao Booth | | | | | | [facility] | | | | | | [place], [place] | | | | | | [address] | | | | | | [phone] | | | +--------+ + + + [...] view image for the detailed interpretation from [facility]. | CARDIOLOGY | + + + + + + + + | Performing | Address | City/State/Zipcode | Phone Number | | Organization | | | | + + + + + | [facility] | [address] | [place], [place] | | | CARDIOLOGY | [address] | [address] | | + + + + + documented in this encounter Visit Diagnoses Not on filedocumented in this encounter"
--- OUTSIDE RECORDS SUMMARY | ~2019-12-06 | XMS | Encounter Summary ---
Demographics + + + | Address | [address] | | | [place] [address] | + + + | Home Phone [...] | 04/07/ | Office | [facility] | Matthew Uriarte | Left ureteral | | 2019 | Visit | [address] | MD Tawanna [address] | calculus (Primary | | | | [place], [place] | [place] | Dx); Kidney stones | | | | [address] | [address] | | | | | [phone] | | | +--------+---------+ + + + [...] April 13, 2019 at 7:[address] [facility]. Please report to the Surgery [facility] Procedure Center no later than 6:15 AM. REMEMBER: NOTHING TO EAT OR DRINK AFTER MIDNIGHT April 12, 2019. NO FISH OIL, ASPIRIN OR ASPIRIN PRODUCTS ONE WEEK PRIOR TO SURGERY. Tylenol and Advil are OK. You will need to get the following testing done prior to surgery: CBC, BMP YOU WILL NEED TO BRING A ELECTRON BEAM MACHINE WELDER SETTER WITH YOU THE DAY OF SURGERY. Call us at [phone] with any questions. [] Pain management booklet [...] [employer] Peptic ulcer disease Premature ventricular contraction [facility] care 06/26/2013 LAST PSA:12/16/2010 RESULT:0.14 LAST COLONOSCOPY:02/05/2009 [...] CV LHC; Surgeon: Daljit Singletary MD; Location: [facility] CV LAB CARDIAC CATHERIZATION N/A 01/25/2019 Procedure: CV Cor Angio; Surgeon: Daljit Singletary MD; Location: [facility] CV LAB COLONOSCOPY N/A 12/24/2017 Procedure: COLONOSCOPY; Surgeon: Emmanuel Daniel MD; Location: [facility] MEDICAL PROCEDURE UNIT COLONOSCOPY N/A 01/05/2019 Procedure: COLONOSCOPY; Surgeon: Emmanuel Daniel MD; Location: [facility] MEDICAL PROCEDURE UNIT EGD 12/24/2017 [...] [facility] MEDICAL PROCEDURE UNIT UPPER GASTROINTESTINAL ENDOSCOPY N/A 01/05/2019 Procedure: EGD; Surgeon: Emmanuel Daniel MD; Location: [facility] MEDICAL PROCEDURE UNIT VASECTOMY Family History: [...] EVERY DAY, Disp: 90 tablet, Rfl: 3 [facility] Natural Products (OSTEO BI-FLEX/5-LOXIN ADVANCED PO), Take [...] 911, Disp: 100 ta blet, Rfl: 3 [place]-3 Fatty Acids (SALMON OIL-1000 PO), CAPS, one capsule by mouth daily twice daily , Disp: , Rfl: ondansetron (ZOFRAN ODT) 4 mg disintegrating tablet, Take 4 mg by mouth., Disp: , Rfl: ONE TOUCH DELICA LANCETS [facility], Check glucose as needed for hypoglycemia, Disp: [...] have not thoroughly proofread this note, and labeling associate errors are very likely to occur. CC: [...] | | | | | [place] [address] | | | | | | [phone] | | | | | | | | +--------+---------+ + + + | 01/01/ | Office | Cardiology | [place], | | | 2019 | Visit | | PARISA Vernon [address] | | | | | | [place], | | | | | | [place] [address] | | | | | | [phone] | | | | | | | [...]
--- OUTSIDE RECORDS SUMMARY | ~2019-12-06 | XMS | Encounter Summary ---
Demographics + + + | Address | [address] | | | [place] [address] | + + + | Home Phone [...] Providers + +------+ + | Care Pump And Blower Operator Name | Role | Phone | [...] 2016 | | CARDIOLOGY [address] | OPTICAL EFFECTS CAMERA OPERATOR [address] | | | | | [place], | [place], [place] | | | | | [place] [address] | [address] | | | | | [phone] | | | +--------+--------+ + + + [...] | | | | | [place] [address] | | | | | | [phone] | | | | | | | | +--------+---------+ + + + | 01/01/ | Office | Cardiology | [place], | | | 2019 | Visit | | PARISA Vernon [address] | | | | | | [place], | | | | | | [place] [address] | | | | | | [phone] | | | | | | | | +--------+---------+ + + + documented as of this encounter Visit Diagnoses Not on filedocumented in this encounter"
--- OUTSIDE RECORDS SUMMARY | ~2019-12-06 | XMS | Encounter Summary ---
Demographics + + + | Address | [address] | | | [place] [address] | + + + | Home Phone [...] Phone | + + +---------+ + | MariaI sabel Sanchez | ECON | Unknown | | + + +---------+ + Care Team Providers + +------+ + | Care Research Aide Name | Role | Phone | [...] + | 10/04/ | Telephone | [facility] | Daljit Singletary, | Other (Records sent) | | 2012 | | CARDIOLOGY [address] | MD [address] | | | | | [place], | [place], | | | | | [place] [address] | [place] [address] | | | | | [phone] | [phone] | | | | | | | [...] | | | | | [place] [address] | | | | | | [phone] | | | | | | | | +--------+---------+ + + + | 01/01/ | Office | Cardiology | [place], | | | 2019 | Visit | | PARISA Vernon [address] | | | | | | [place], | | | | | | [place] [address] | | | | | | [phone] | | | | | | | | +--------+---------+ + + + documented as of this encounter Visit Diagnoses Not on filedocumented in this encounter"
--- OUTSIDE RECORDS SUMMARY | ~2019-12-06 | XMS | Encounter Summary ---
Demographics + + + | Address | [address] | | | [place] [address] | + + + | Home Phone [...] | 01/31/ | Hospital | [facility] | | | | 2008 | Encounter | MED CTR EMERGENCY | | | | | | [place] [address] | | | | | | [place] | | | | | | [address] | | | | | | [phone] | | | +--------+ + + + [...] | | | | | [place] [address] | | | | | | [phone] | | | | | | | | +--------+---------+ + + + | 01/01/ | Office | Cardiology | [place], | | | 2020 | Visit | | PARISA Vernon [address] | | | | | | [place], | | | | | | [place] [address] | | | | | | [phone] | | | | | | | | +--------+---------+ + + + documented as of this encounter Visit Diagnoses Not on filedocumented in this encounter"
--- OUTSIDE RECORDS SUMMARY | ~2019-12-06 | XMS | Encounter Summary ---
Demographics + + + | Address | [address] | | | [place] [address] | + + + | Home Phone [...] Team Providers + +------+ + | Care Retread Builder Name | Role | Phone | [...] [address] | | | | | | [place], [place] | (Fax) | | | | | [address] | | | | | | [phone] | | | +--------+ + + + [...] | | | | | [place] [address] | | | | | | [phone] | | | | | | | | +--------+---------+ + + + | 01/01/ | Office | Cardiology | [place], | | | 2020 | Visit | | PARISA Vernon [address] | | | | | | [place], | | | | | | [place] [address] | | | | | | [phone] | | | | | | | | +--------+---------+ + + + documented as of this encounter Visit Diagnoses Not on filedocumented in this encounter"
--- OUTSIDE RECORDS SUMMARY | ~2019-12-06 | XMS | Encounter Summary ---
Demographics + + + | Address | [address] | | | [place] [address] | + + + | Home Phone [...] Providers + +------+ + | Care Shoe Salesman Name | Role | Phone | [...] [address] | | | | | [place], | [place], | | | | | [place] [address] | [place] [address] | | | | | [phone] | [phone] | | | | | | | [...] | | | | | [place] [address] | | | | | | [phone] | | | | | | | | +--------+---------+ + + + | 01/01/ | Office | Cardiology | [place], | | | 2019 | Visit | | PARISA Vernon [address] | | | | | | [place], | | | | | | [place] [address] | | | | | | [phone] | | | | | | | [...] Comment | + + | [facility] | + + + +---------+ + + [...] Comment | + + | [facility] | + + + +---------+ + + [...] Comment | + + | [facility] | + + + +---------+ + + [...]
--- OUTSIDE RECORDS SUMMARY | ~2019-12-06 | XMS | Encounter Summary ---
Demographics + + + | Address | [address] | | | [place] [address] | + + + | Home Phone [...] Providers + +------+ + | Care Clinical Unit Educator Name | Role | Phone | [...] CARDIOLOGY [address] | [address] [place] | reprogramming/check | | | | [place], | [place], | DO NOT DELETE | | | | [place] [address] | [place] [address] | (Primary Dx); | | | | [phone] | [phone] | Pacemaker - | | | | [...] | | | | | [place] [address] | | | | | | [phone] | | | | | | | | +--------+---------+ + + + | 01/01/ Office | Cardiology | [place], | | | 2020 | Visit | | PARISA Vernon [address] | | | | | | [place], | | | | | | [place] [address] | | | | | | [phone] | | | | | | | [...]
--- OUTSIDE RECORDS SUMMARY | ~2019-12-06 | XMS | Encounter Summary ---
Demographics + + + | Address | [address] | | | [place] [address] | + + + | Home Phone [...] | CARDIOLOGY [address] | [address] | card ) | | | | [place], | [place], | | | | | [place] [address] | [place] [address] | | | | | [phone] | [phone] | | | | | | | [...] | | | | | [place] [address] | | | | | | [phone] | | | | | | | | +--------+---------+ + + + | 01/01/ | Office | Cardiology | [place], | | | 2019 | Visit | | PARISA Vernon [address] | | | | | | [place], | | | | | | [place] [address] | | | | | | [phone] | | | | | | | | +--------+---------+ + + + documented as of this encounter Visit Diagnoses Not on filedocumented in this encounter"
--- OUTSIDE RECORDS SUMMARY | ~2019-12-06 | XMS | Encounter Summary ---
Demographics + + + | Address | [address] | | | [place] [address] | + + + | Home Phone [...] Providers + +------+ + | Care Manager Shop Name | Role | Phone | + [...] | | | | stenosis | L, TAXATION INSPECTOR [address] | | | | | | Procedures | [address] | | | | | | [address] | | | | | | Myelography | [place], [place] | | | | | | Cervical | [address] | | | | | | Spine | Phone: | | | | | | | [phone] | | | | | | | Fax: | | | | | | | [phone] | | +--------+--------+ + + + + [...] + + | 06/04/ | Hospital | [facility] | [place], | Cervical spinal | | 2016 | Encounter | MED CTR [address] | [place] Mason TAXATION INSPECTOR [address] | stenosis | | | | [place], | [address] | | | | | [place] [address] | [place] [address] | | | | | [phone] | [phone] | | | | | | | [...] + + + +---------+ + + | Arab-3 Fatty | CAPS, one capsule by | [...] | | | | | [place] [address] | | | | | | [phone] | | | | | | | | +--------+---------+ + + + | 01/01/ | Office | Cardiology | [place], | | | 2019 | Visit | | PARISA Vernon [address] | | | | | | [place], | | | | | | [place] [address] | | | | | | [phone] | | | | | | | [...]
--- OUTSIDE RECORDS SUMMARY | ~2019-12-06 | XMS | Encounter Summary ---
Demographics + + + | Address | [address] | | | [place] [address] | + + + | Home Phone [...] Providers + +------+ + | Care Automatic Brine Mixer Operator Name | Role | Phone | [...] [place] | | | | | | [address] | [address] Phone: | | | | | | Phone: | [phone] | | | | | | [phone] | Fax: | | | | | | Fax: | [phone] | | | | | | [phone] | | +--------+ + + + + [...] | diurnal enuresis | | | | [place], [place] | [place], [place] | (Primary Dx); BPH | | | | [address] | [address] | with | | | | [phone] | | obstruction/lower | | | | [...] and had his license revoked by the [facility]. He has us ed marijuana for [...] APNEA CONDS CLASSIFIED ELSEWHERE (12/15/2010); Ulcerative colitis ([facility]); Ches t pain; SINUS BRADYCARDIA; HEPATITIS B; PUD; FATTY LIVER DISEASE; SUBSTANCE ABUSE, MULTIPLE; Preventative health care (06/26/2013); Bladder troubles; Tuberculosis; Anginal pain ([facility]); St roke ([facility]); Prostate troubles; and Neurological disorder. Past [...] needed for Chest pain. 25 tablet 12 [place]-3 Fatty Acids (SALMON OIL-1000 PO) CAPS, one capsule by mouth daily twice daily ONE TOUCH DELICA LANCETS [facility] Check glucose as [...] Date/Time: 04/22/2012 16:56 Transcribed Date/Time: 04/22/2012 17:32 Military Pay Technician: <Electronically Signed by Jama Solis MD> [...] Date/Time: 04/23/2012 10:54 Transcribed Date/Time: 04/23/2012 11:06 Military Pay Technician: <Electronically Signed by Jama Solis MD> 04/24/12 8724 IMPRESSION: 1. Nocturnal and diurnal enuresis. I [...] bladder, still believe that the recommendations from [facility] neurosurgeon, Dr. Demarco, on 03/13/2014 would [...] have not thoroughly proofread this note, and exhibit carpenter erro rs may occur. CC: Kirk French [...] | | | | | [place] [address] | | | | | | [phone] | | | | | | | | +--------+---------+ + + + | 01/01/ | Office | Cardiology | [place], | | | 2019 | Visit | | PARISA Vernon [address] | | | | | | [place], | | | | | | [place] [address] | | | | | | [phone] | | | | | | | [...] 1.001 - 1.030 | | | | Spring, | | | | | | [facility], [...]
--- OUTSIDE RECORDS SUMMARY | ~2019-12-06 | XMS | Encounter Summary ---
Demographics + + + | Address | [address] | | | [place] [address] | + + + | Home Phone [...] Providers + +------+ + | Care Auto Body Repair Teacher Name | Role | Phone | [...] 2012 | | CARDIOLOGY [address] | CUSHION FILLER [address] | | | | | [place], | [place], [place] | | | | | [place] [address] | [address] | | | | | [phone] | | | +--------+ + + + [...] | | | | | [place] [address] | | | | | | [phone] | | | | | | | | +--------+---------+ + + + | 01/01/ | Office | Cardiology | [place], | | | 2019 | Visit | | PARISA [place] [address] | | | | | | [place], | | | | | | [place] [address] | | | | | | [phone] | | | | | | | [...] | [address] | [place], [place] | | | [facility] | | [address] | | | - LABORATORY | | | | + + + + + External Lab: [facility] INR (08/08/2013) + +-------+ + + + [...] | | | LAB | | | [place], | | | | | | External [...]
--- OUTSIDE RECORDS SUMMARY | ~2019-12-06 | XMS | Encounter Summary ---
Demographics + + + | Address | [address] | | | [place] [address] | + + + | Home Phone [...] Providers + +------+ + | Care Professional Fighter Name | Role | Phone | [...] | CARDIOLOGY [address] | [address] | Interrogation | | | | [place], | [place], | (Primary Dx); | | | | [place] [address] | [place] [address] | Presence of | | | | [phone] | [phone] | permanent cardiac | | | | [...] | | | | | [place] [address] | | | | | | [phone] | | | | | | | | +--------+---------+ + + + | 01/01/ | Office | Cardiology | [place], | | | 2019 | Visit | | PARISA [place] [address] | | | | | | [place] | | | | | | [place] [address] | | | | | | [phone] | | | | | | | [...] remote PDF scanned into | | | [employer] for remote interrogation results. Data collected by [...]
--- OUTSIDE RECORDS SUMMARY | ~2019-12-06 | XMS | Encounter Summary ---
Demographics + + + | Address | [address] | | | [place] [address] | + + + | Home Phone [...] Providers + +------+ + | Care Rn Rehabilitation Name | Role | Phone | + +------+ + | Kirk French MD | PCP | | + +------+ + Encounter Details +--------+ + + + + | Date | Type | Department | Care Team | Description | +--------+ + + + + | 10/25/ | Hospital | [facility] | Kirk French | Aneurysm (HCC) | | 2017 | Encounter | MED CTR ULTRASOUND | D, MD [address] | | | | | [address] [place] | [address] | | | | | [place], [place] | [place] [address] | | | | | [address] | [phone] | | | | | [phone] | | | | | | | [...] + + + +---------+ + + | [place]-3 Fatty | CAPS, one capsule by | [...] | | | | | [place] [address] | | | | | | [phone] | | | | | | | | +--------+---------+ + + + | 01/01/ | Office | Cardiology | Silvia, | | | 2019 | Visit | | PARIAS Vernon [address] | | | | | | [place], | | | | | | [place] [address] | | | | | | [phone] | | | | | | | | +--------+---------+ + + + documented as of this encounter Visit Diagnoses + + | Diagnosis | + + | Aneurysm (HCC) Aneurysm of unspecified site | + + documented in this encounter"
--- OUTSIDE RECORDS SUMMARY | ~2019-12-06 | XMS | Encounter Summary ---
Demographics + + + | Address | [address] | | | [place] [address] | + + + | Home Phone [...] Providers + +------+ + | Care Cyber Systems Engineer Name | Role | Phone | + +------+ + PCP | Unavailable | + +------+ + Encounter Details +--------+ + + + + | Date | Type | Department | Care Team | Description | +--------+ + + + + | 02/07/ | [facility] | [facility] | Unknown, | | | 1995 | Encounter | MED CTR XRAY [address] | MD Stefany | | | | | [place] | | | | | | [place] [address] | (Fax) | | | | | [phone] | | | +--------+ + + + [...] | | | | | [place] [address] | | | | | | [phone] | | | | | | | | +--------+---------+ + + + | 01/01/ | Office | Cardiology | Silvia, | | | 2020 | Visit | | PARISA Vernon [address] | | | | | | [place], | | | | | | [place] [address] | | | | | | [phone] | | | | | | | | +--------+---------+ + + + documented as of this encounter Visit Diagnoses Not on filedocumented in this encounter"
--- OUTSIDE RECORDS SUMMARY | ~2019-12-06 | XMS | Encounter Summary ---
Demographics + + + | Address | [address] | | | [place] [address] | + + + | Home Phone [...] Providers + +------+ + | Care Operations Section Manager Name | Role | Phone | [...] | 11/02/ | Telephone | [facility] | Daljit Singletary, | Other | | 2015 | | CARDIOLOGY [address] | MD [address] | | | | | [place], | [place], | | | | | [place] [address] | [place] [address] | | | | | [phone] | [phone] | | | | | | | [...] | | | | | [place] [address] | | | | | | [phone] | | | | | | | | +--------+---------+ + + + | 01/01/ | Office | Cardiology | Silvia, | | | 2019 | Visit | | PARISA Vernon [address] | | | | | | [place], | | | | | | [place] [address] | | | | | | [phone] | | | | | | | | +--------+---------+ + + + documented as of this encounter Visit Diagnoses Not on filedocumented in this encounter"
--- OUTSIDE RECORDS SUMMARY | ~2019-12-06 | XMS | Encounter Summary ---
Demographics + + + | Address | [address] | | | [place] [address] | + + + | Home Phone [...] Providers + +------+ + | Care Machine Paint Mixer Name | Role | Phone | + +------+ + | Michael Amanda DO | PCP | | + +------+ + Encounter Details +--------+ + + + + | Date | Type | Department | Care Team | Description | +--------+ + + + + | 12/25/ | Hospital | [facility] | Daljit Singletary, | | | 2013 | Encounter | MED CTR XRAY [address] | [address] | | | | | [place] | [place], | | | | | [place] [address] | [place] [address] | | | | | [phone] | [phone] | | | | | | | [...] + + + +---------+ + + | [place]-3 Fatty | CAPS, one capsule by [...] | | | | | [place] [address] | | | | | | [phone] | | | | | | | | +--------+---------+ + + + | 01/01/ | Office | Cardiology | Silvia, | | | 2019 | Visit | | PARISA Vernon [address] | | | | | | [place], | | | | | | [place] [address] | | | | | | [phone] | | | | | | | [...] At | + + + | [facility] | [place] | | Department [address] [place], [place] [address] [facility] | | [ rep [address]] [ rep [facility] | | st zip] Signed | - IMAGING | | | | | Patient Name: MOE GAY | | | Physician: MIGUELINA : 1960 Age: 53 Sex: M Unit | | | #: [id number] Exam Date: 12/25/13 Location: | | | [facility] SDS-D Report #: [id number] Page: | | | %(RAD)RES..mtdd.print.filter("pg") of %(RAD) | | | RES..mtdd.print.filter("tpg") | | | | | | Accession Number: [id number] | | | LEFT HEART CATHETERIZATION, 12/25/2013 [...] the patient was taken to the cardiac general production laborer. She | | | was prepared and draped in the usual fashion. Under sterile | | | technique and local anesthesia, percutaneous access was obtained | | | using #5 Luxembourger sheath in the right radial artery. Right heart cath | | | was not performed on this patient. Left ventriculography was | | | performed using #5 multipurpose diagnostic catheter. The selective | | | coronary angiography was then performed in several sagittal and | | | oblique projections using #5 multipurpose and #5 Luxembourger JL 3.5 | | | diagnostic catheters. [...] Transcribed | | | Date/Time: 12/25/2013 11:52 Platform Man: | | | <<Signature on File>> | | | Daljit | | | MD CLEOPATRA Singletary FASNanette12/25/13 1343 <Electronically signed by | | | Daljit Singletary MD, [facility], [facility], [place], [facility]> Daljit | | | MD CLEOPATRA Singletary [facility] 12/25/13 1035 Platform Man: Webkaryx | | | Gfztbwqdnwtcp68/03/14 1152 | | + + + + + + + + | Performing | Address | City/State/Zipcode | Phone Number | | Organization | | | | + + + + + | [facility] | [address] | [place] | [phone] | | [facility] | | [address] | | | - IMAGING | | | | + + + + + documented in this encounter Visit Diagnoses Not on filedocumented in this encounter
--- OUTSIDE RECORDS SUMMARY | ~2019-12-06 | XMS | Encounter Summary ---
Demographics + + + | Address | [address] | | | [place] [address] | + + + | Home Phone [...] Providers + +------+ + | Care Crusher Wet Ground Mica Name | Role | Phone | + [...] | | | | Sinoatrial | Geri, POLITICAL AIDE | [address] | | | | | node | [address] | [place], | | | | | dysfunction | [place] | [place] | | | | | (HCC) | [place], [place] | [address] | | | | | Coronary | [address] | Phone: | | | | | artery | Phone: | [phone] | | | | | disease | [phone] | Fax: | | | | | involving | Fax: | [phone] | | | | | algaaciq | [phone] | | | | | | coronary | | | | | | | artery of | | | | | | | algaaciq heart | | | | | | [...] | | | | | | Complete [place] | | | | | | | ECHO HEART | | | | | | | XTHORACIC,[place] | | | | | | | MPLETE W | | | | | | | DOPPLER [place] | | | | | | [...] | Visit | CARDIOLOGY [address] | POLITICAL AIDE [address] | dysfunction (HCC) | | | | [place], | St [place], [place] | with symptomatic | | | | [place] [address] | [address] | bradycardia (Primary | | | | [phone] | | Dx); Coronary | | | | | | artery disease | | | | | | involving algaaciq | | | | | | coronary artery of | | | | | | algaaciq heart without | | | | | [...] of Service: 12/31/15 HISTORY OF PRESENT ILLNESS: Meo Sanchez is a 55 y.o. male with [...] Preventative health care Coronary artery disease involving algaaciq coronary artery without angina pectoris Cannabis abuse, [...] 3rd dose, call 911 100 tablet 3 [place]-3 Fatty Acids (SALMON OIL-1000 PO) CAPS, one capsule by mouth daily twice daily ONE TOUCH DELICA LANCETS [facility] Check glucose as needed for hypoglycemia 100 [...] scanned Paceart documentation and device PDF in Babytree for interrogation (with progr amming changes) performed [...] arrhythmia performed by Dr. Gambino at [facility] on 01/30/2013. Patient had spontaneous PVCs [...] go back in 3 days to [place] for an attempt of ablation under general [...] dizziness. He is in class I-II of [place] 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 T here are [...] this chart may have been created with [employer] voice recognition software. Occasi onal wrong-word or [...] | | | | | [place] [address] | | | | | | [phone] | | | | | | | | +--------+---------+ + + + | 01/01/ | Office | Cardiology | Silvia, | | 2019 | Visit | | PARISA Vernon [address] | | | | | | [place], | | | | | | [place] [address] | | | | | | [phone] | | | | | | | [...] | | TRANSTHORAC | | | [facility] | | | IC ECHO | [...] [facility] HU[facility] | [facility] | | [place] Room Number SARAH Patient | [facility] | | [id number] Date of Study 06/16/2016 Number | - IMAGING | | Visit Number [id number] | | | Referring Physician JOSE ARMANDO GARCIA Number Date of 1960 | | | Loan Officer LUIS FERNANDO DUARTE Age | | | 56 year(s) Interpreting | | | GURJIT TROY | | | Laminator Printed Circuit Boards SYDNI CAGLE, | | | Gender | | | Male Nurse Procedure Type of Study TTE | | | procedure: ECHO Complete. Procedure dateDate: 06/16/2016Start: 10:55 | | | AM Technical Quality: Adequate visualizationStudy Location: Echo | | | LabIndications: CAD JENA CORONARY ARTERY 414.01/ I25.10 and | | [...] BARRY Room Number SARAH | | Patient [id number] Date of Study 06/16/2016 Number Visit Number | | [id number] Referring Physician JOSE ARMANDO GARCIA Number | | Date of 1960 Loan Officer LUIS FERNANDO DUARTE Age | | 56 year(s) Interpreting GURJIT TROY | | Laminator [employer]ed Circuit Boards SYDNI CAGLE, | | Gender Male NurseProcedureType of Study TTE | | procedure: ECHO Complete.Procedure dateDate: 06/16/2016Start: 10:55 AMTechnical Quality: | | Adequate visualizationStudy Location: Echo LabIndications: CAD JENA CORONARY ARTERY | | 414.01/ I25.10 and [...] [address] | [place] | [phone] | | [facility] | | [address] | | | - IMAGING | | [...] | | 2. Coronary artery disease involving algaaciq coronary artery of | | | algaaciq heart without angina pectoris I25.10 414.01 ECHO [...] + + | Coronary artery disease involving algaaciq coronary artery of algaaciq heart without | | angina pectoris | [...]
--- OUTSIDE RECORDS SUMMARY | ~2019-12-06 | XMS | Encounter Summary ---
Demographics + + + | Address | [address] | | | [place] [address] | + + + | Home Phone [...] Team Providers + +------+ + | Care Van Helper Name | Role | Phone | [...] Provider Unknown | | | | | [place], [place] | [phone] | | | | | [address] | | | | | | [phone] | | | +--------+ + + + [...] + + + +---------+ + + | [place]-3 Fatty | CAPS, one capsule by | [...] | | | | | [place] [address] | | | | | | [phone] | | | | | | | | +--------+---------+ + + + | 01/01/ | Office | Cardiology | Silvia | | | 2019 | Visit | | PARISA Vernon [address] | | | | | | [place] | | | | | | [place] [address] | | | | | | [phone] | | | | | | | [...]
--- OUTSIDE RECORDS SUMMARY | ~2019-12-06 | XMS | Encounter Summary ---
Demographics + + + | Address | [address] | | | [place] [address] | + + + | Home Phone [...] Providers + +------+ + | Care Nurse Healthcare Manager Name | Role | Phone | [...] | | CARDIOLOGY [address] | Janeen REIMBURSEMENT ANALYST [address] | mixed | | | | [place], | [place], | | | | | [place] [address] | [place] [address] | | | | | [phone] | [phone] | | | | | | | [...] | | | | | | [place] [address] | | | | | | [phone] | | | | | | | | +--------+---------+ + + + | 01/01/ | Office | Cardiology | Silvia, | | | 2019 | Visit | | PARISA Vernon [address] | | | | | | [place], | | | | | | [place] [address] | | | | | | [phone] | | | | | | | | +--------+---------+ + + + documented as of this encounter Visit Diagnoses + + | Diagnosis | + + | Hyperlipidemia, mixed Mixed hyperlipidemia | + + documented in this encounter"
--- OUTSIDE RECORDS SUMMARY | ~2019-12-06 | XMS | Encounter Summary ---
Demographics + + + | Address | [address] [place] [address] [address] | | | [place] [address] | + + + | Home Phone [...] + + + | Author | [facility] | + + + | Organization | [facility] | + + + | Address | Unknown | + + + | Phone | Unavailable | + + + Support + + + + + | Name | Relationship | Address | Phone | + + + + + | Rachel Valencia | ELIEZER | [place] | | | | | [address] | | + + + + + Care Team Providers + +------+ + | Care Molasses Coloring Operator Name | Role | Phone | [...] | | | Department | Diarrhea, | Bridgtete Escobar MD | Epic Dept | | | | | unspecified | [address] | | | | | | type | [address] | | | | | | Unintentiona | [place], [place] | | | | | | l weight | [address] | | | | | | loss | Phone: | | | | | | Procedures | [phone] | | | | | | CONSULT TO | Fax: | | | | | | NON - IVETTE | [phone] | | | | | | PROVIDER [...] 2019 | | Center at [facility] [address] | MD [address] | normal, recommend | | | | [address] | [place], [place] | hyoscyamine) | | | | Mailcode: [place] | [address] | | | | | for Health and | [phone] | | | | | [facility] [address] | | | | | | [place], [place] | | | | | | [address] | | | | | | [phone] | | | +--------+ + + + [...]
--- OUTSIDE RECORDS SUMMARY | ~2019-12-06 | XMS | Encounter Summary ---
Demographics + + + | Address | [address] | | | [place] [address] | + + + | Home Phone [...] Team Providers + +------+ + | Care Cashier And Waiter/Waitress Name | Role | Phone | [...] | MED CTR EXTERNAL | MD [address] | | | | | IMAGING | Jay THORPE | | | | | [phone] | [place] [address] | | +--------+ + + + + [...] | | | | | | [place] [address] | | | | | | [phone] | | | | | | | | +--------+---------+ + + + | 01/01/ | Office | Cardiology | Silvia, | | | 2019 | Visit | | PARISA Vernon [address] | | | | | | [place], | | | | | | [place] [address] | | | | | | [phone] | | | | | | | [...]
--- OUTSIDE RECORDS SUMMARY | ~2019-12-06 | XMS | Encounter Summary ---
Demographics + + + | Address | [address] | | | [place] [address] | + + + | Home Phone [...] Providers + +------+ + | Care Hand Driller Name | Role | Phone | + +------+ + PCP | Unavailable | + +------+ + Encounter Details +--------+ + + + + | Date | Type | Department | Care Team | Description | +--------+ + + + + | 06/13/ | [facility] | [facility] | Daljit Singletary, | | | 2008 | Encounter | MED CTR LABORATORY | [address] | | | | | [address] [place] | [address], | | | | | [place] | [place] [address] | | | | | [address] | [phone] | | | | | [phone] | | | +--------+ + + + [...] | | | | | | [place], [place] [address] | | | | | | [phone] | | | | | | | | +--------+---------+ + + + | 01/01/ | Office | Cardiology | [place]via, | | | 2020 | Visit | | PARISA Vernon [address] | | | | | | [place], | | | | | | [place] [address] | | | | | | [phone] | | | | | | | | +--------+---------+ + + + documented as of this encounter Visit Diagnoses Not on filedocumented in this encounter"
--- OUTSIDE RECORDS SUMMARY | ~2019-12-06 | XMS | Encounter Summary ---
Demographics + + + | Address | [address] | | | [place] [address] | + + + | Home Phone [...] Providers + +------+ + | Care Document Preparation Specialist Name | Role | Phone | [...] W | | | | | [place], | [place], | | | | | [place] [address] | [place] [address] | | | | | [phone] | [phone] | | | | | | | [...] | | | | | [place] [address] | | | | | | [phone] | | | | | | | | +--------+---------+ + + + | 01/01/ | Office | Cardiology | [place]via, | | | 2019 | Visit | | PARISA Vernon [address] | | | | | | [place], | | | | | | [place] [address] | | | | | | [phone] | | | | | | | [...]
--- OUTSIDE RECORDS SUMMARY | ~2019-12-06 | XMS | Encounter Summary ---
Demographics + + + | Address | [address] [place] [address] [address] | | | [place] [address] | + + + | Home Phone [...] [place] | | | | | [address] | | + + + + + Care Team Providers + +------+ + | Care Chalk Cutter Name | Role | Phone | [...]
--- OUTSIDE RECORDS SUMMARY | ~2019-12-06 | XMS | Encounter Summary ---
Demographics + + + | Address | [address] | | | [place] [address] | + + + | Home Phone [...] Providers + +------+ + | Care Retail Performance Specialist Name | Role | Phone | [...] 2019 | | GASTROENTEROLOGY | [address], [place] | Syndrome | | | | [address] [place] | [address] [place], [place] | | | | | [address] [place], [place] | [address] | | | | | [address] | | | | | | [phone] | | | +--------+ + + + [...] | | | | | [place] [address] | | | | | | [phone] | | | | | | | | +--------+---------+ + + + | 01/01/ | Office | Cardiology | Silvia, | | | 2019 | Visit | | PARISA [place] [address] | | | | | | [place] | | | | | | [place] [address] | | | | | | [phone] | | | | | | | | +--------+---------+ + + + documented as of this encounter Visit Diagnoses Not on filedocumented in this encounter"
--- OUTSIDE RECORDS SUMMARY | ~2019-12-06 | XMS | Encounter Summary ---
Demographics + + + | Address | [address] | | | [place] [address] | + + + | Home Phone [...] Providers + +------+ + | Care Glass Embosser Name | Role | Phone | + +------+ + | Michael Amanda DO | PCP | | + +------+ + Encounter Details +--------+ + + + + | Date | Type | Department | Care Team | Description | +--------+ + + + + | 10/01/ | Hospital | [facility] | Mary Bradshaw | | | 2013 | Encounter | MED CTR JORDEN [address]IGLE | Guy Larkin MD | | | | | [address] [place] | [address] | | | | | [place], [place] | [place], [place] | | | | | [address] | [address] | | | | | [phone] | | | +--------+ + + + [...] + + + +---------+ + + | [place]-3 Fatty | CAPS, one capsule by | [...] | | | | | [place] [address] | | | | | | [phone] | | | | | | | | +--------+---------+ + + + | 01/01/ | Office | Cardiology | Silvia, | | | 2019 | Visit | | PARISA Vernon [address] | | | | | | [place], | | | | | | [place] [address] | | | | | | [phone] | | | | | | | [...] + | MISCELLANEOUS LAB | | | [phone] | + +---------+ + + | MISCELANIOUS LAB | | | [phone] | + +---------+ + + documented in this encounter Visit Diagnoses Not on filedocumented in this encounter"
--- OUTSIDE RECORDS SUMMARY | ~2019-12-06 | XMS | Encounter Summary ---
Demographics + + + | Address | [address] | | | [place] [address] | + + + | Home Phone [...] Team Providers + +------+ + | Care Distributor Operator Name | Role | Phone [...] | (Fax) | | | | | [address] | | | | | | [phone] | | | +--------+ + + + [...] | | | | | [place] [address] | | | | | | [phone] | | | | | | | | +--------+---------+ + + + | 01/01/ | Office | Cardiology | [place]via, | | | 2020 | Visit | | PARISA Vernon [address] | | | | | | [place], | | | | | | [place] [address] | | | | | | [phone] | | | | | | | | +--------+---------+ + + + documented as of this encounter Visit Diagnoses Not on filedocumented in this encounter"
--- OUTSIDE RECORDS SUMMARY | ~2019-12-06 | XMS | Encounter Summary ---
Demographics + + + | Address | [address] | | | [place] [address] | + + + | Home Phone [...] + +------+ + | Care Packaging Line Attendant Name | Role | Phone | [...] CARDIOLOGY [address] | MD [address] [place] | Interrogation | | | | [place], | [place], | (Primary Dx); | | | | [place] [address] | [place] [address] | Pacemaker; | | | | [phone] | [phone] | Sinoatrial node | | | | [...] | | | | | [place] [address] | | | | | | [phone] | | | | | | | | +--------+---------+ + + + | 01/01/ | Office | Cardiology | [place], | | | 2019 | Visit | | PARISA Vernon [address] | | | | | | [place], | | | | | | [place] [address] | | | | | | [phone] | | | | | | | [...] remote PDF scanned into | | | Vetiary for remote interrogation results. Data collected by [...]
--- OUTSIDE RECORDS SUMMARY | ~2019-12-06 | XMS | Encounter Summary ---
Demographics + + + | Address | [address] | | | [place] [address] | + + + | Home Phone [...] Team Providers + +------+ + | Care Defensive Fire Control Systems Operator Name | Role | Phone | + +------+ + | Michael Amanda DO | PCP | | + +------+ + Encounter Details +--------+ + + + + | Date | Type | Department | Care Team | Description | +--------+ + + + + | 05/11/ | Hospital | [facility] | Conversion | Lumbago; | | 2013 | Encounter | MEDICAL CENTER | Transaction, | Postlaminectomy | | | | CLINICAL DECISION | Provider Unknown | syndrome, cervical | | | | [address] | | region; Cervicalgia | | | | [place], [place] | (Fax) | | | | | [address] | Cesar, | | | | | [phone] | MD Gamaliel | | +--------+ + [...] + + + +---------+ + + | [place]-3 Fatty | CAPS, one capsule by | [...] Note by Meliza Macario RN at 05/11/14 1507 Author: Meliza Macario RN Service: (none) Author Type: Registered Nurse Filed: 05/11/14 1506 Date of Service: 05/11/14 150 Status: Signed Heel Seat Laster: Meliza Macario RN (Registered Nurse) Pt discharged [...] Date of Service: 05/11/14 142 Status: Signed Heel Seat Laster: Heike Mckeon RN (Registered Nurse) Called doctor [...] | | | | | [place] [address] | | | | | | [phone] | | | | | | | | +--------+---------+ + + + | 01/01/ | Office | Cardiology | [place], | | | 2019 | Visit | | PARISA [place] [address] | | | | | | [place] | | | | | | [place] [address] | | | | | | [phone] | | | | | | | [...] | | | intrathecal use. See the granite polisher examination for details of the | | | injection. Bone algorithm noncontrast technique with reformatted | | | sagittal and coronal images. Prior study for review : CT discogram | | | from 2004 was used to orient this examination given the transitional | | | anatomy of the lumbosacral junction FINDINGS: Quality Control Operator is notable | | | for [...] Brown - 07/07/2019 10:30 PM PDT HISTORY: 54 year-old male, postsurgical | | pain syndrome TECHNIQUE: 1. CT evaluation of the cervical thoracic and lumbar spine | | after the administration of approved dose of contrast to prove for intrathecal use. See | | the granite polisher examination for details of the injection. Bone algorithm noncontrast | | technique with reformatted sagittal and coronal images. Prior study for review : CT | | discogram from 2004 was used to orient this examination given the transitional anatomy | | of the lumbosacral junction FINDINGS: Quality Control Operator is notable for a pacing system. [...]
--- OUTSIDE RECORDS SUMMARY | ~2019-12-06 | XMS | Encounter Summary ---
Demographics + + + | Address | [address] | | | [place] [address] | + + + | Home Phone [...] Providers + +------+ + | Care Apartment Community Assistant Manager Name | Role | Phone | [...] | disease involving | | | | [place], | [place], | [place] coronary | | | | [place] [address] | [place] [address] | artery without | | | | [phone] | angina pectoris | | | | [...] | | | | | [place] [address] | | | | | | [phone] | | | | | | | | +--------+---------+ + + + | 01/01/ | Office | Cardiology | Silvia, | | | 2019 | Visit | | PARISA [place] [address] | | | | | | [place], | | | | | | [place] [address] | | | | | | [phone] | | | | | | | [...] MD | | | | | | ([id number]) on 08/29/2015 | | | | | [...] + + | Coronary artery disease involving [place] coronary artery without angina pectoris - | | Primary | + + documented in this encounter"
--- OUTSIDE RECORDS SUMMARY | ~2019-12-06 | XMS | Encounter Summary ---
Demographics + + + | Address | [address] | | | [place] [address] | + + + | Home Phone [...] Providers + +------+ + | Care Roll Icer Machine Name | Role | Phone [...] [address] | | | | | | [place], [place] | (Fax) | | | | | [address] | | | | | | [phone] | | | +--------+ + + + [...] | | | | | [place] [address] | | | | | | [phone] | | | | | | | | +--------+---------+ + + + | 01/01/ | Office | Cardiology | Silvia, | | | 2020 | Visit | | PARISA Vernon [address] | | | | | | [place], | | | | | | [place] [address] | | | | | | [phone] | | | | | | | | +--------+---------+ + + + documented as of this encounter Visit Diagnoses Not on filedocumented in this encounter"
--- OUTSIDE RECORDS SUMMARY | ~2019-12-06 | XMS | Encounter Summary ---
Demographics + + + | Address | [address] | | | [place] [address] | + + + | Home Phone [...] Providers + +------+ + | Care Line Service Technician Name | Role | Phone [...] | | | | CENTER [address] | [place], [place] | (Primary Dx) | | | | [place], [place] | [address] | | | | | [address] | | | | | | [phone] | | | +--------+ + + + [...] + + + +---------+ + + | Rienzi-3 Fatty | CAPS, one capsule by | [...] [address] | | | | | | [place] [address] | | | | | | [phone] | | | | | | | | +--------+---------+ + + + | 01/01/ | Office | Cardiology | Silvia, | | | 2019 | Visit | | PARISA Vernon [address] | | | | | | [place], | | | | | | [place] [address] | | | | | | [phone] | | | | | | | [...] mL/min/1.73m2 | [facility] | | | [facility]AN | RATE,ESTIMATED | | MEDICAL | | | | mL/min/1.98i4Hecl than | | CENTER - | | [...] 4.2 | 3.2 - 5.0 g/dL | [facility] | | | | | [...] | [address] | [place] | [phone] | | [facility] | | [address] | | | - LABORATORY | | [...] | | | | ANGELA MARADIAGA MD ([id number]) | | | | | | on [...] | | | | | | [employer] | | | | [...] + | [facility] | [address] | [place] | [phone] | | [facility] | | [address] | | | - LABORATORY | | [...] | [address] | [place], [place] | [phone] | | [facility] | | [address] | | | - LABORATORY | | [...]
--- OUTSIDE RECORDS SUMMARY | ~2019-12-06 | XMS | Encounter Summary ---
Demographics + + + | Address | [address] | | | [place] [address] | + + + | Home Phone [...] Providers + +------+ + | Care Sap Bw Bi Developer Name | Role | Phone | + +------+ + | Kirk French MD | PCP | | + +------+ + Encounter Details +--------+ + + + + | Date | Type | Department | Care Team | Description | +--------+ + + + + | 01/25/ | Emergency | [facility] | Donald Callahan, | Strain of lumbar | | 2016 | | MEDICAL CENTER | Russ, DO [address] | paraspinal muscle, | | | | EMERGENCY CENTER | [address] | initial encounter; | | | | [address] | [place], [place] | Left hip pain | | | | [place], [place] | [address] | | | | | [address] | | | | | | [phone] | | | +--------+ + + + [...] + + + +---------+ + + | Biscoe-3 Fatty | CAPS, one capsule by | [...] | | | | | [place] [address] | | | | | | [phone] | | | | | | | | +--------+---------+ + + + | 01/01/ | Office | Cardiology | Silvia, | | | 2019 | Visit | | PARISA Vernon [address] | | | | | | [place], | | | | | | [place] [address] | | | | | | [phone] | | | | | | | [...] Conversion - 07/06/2019 12:12 AM PDT PINA [id number] HIP 2 VIEW | | LEFT01/25/2017 2:48 [...] Conversion - 07/06/2019 12:12 AM PDT PINA [place] VICTOR [id number] years MaleXR | | LUMBAR SPINE LIMITED [...]
--- OUTSIDE RECORDS SUMMARY | ~2019-12-06 | XMS | Encounter Summary ---
Demographics + + + | Address | [address] | | | [place] [address] | + + + | Home Phone [...] Providers + +------+ + | Care Cash Poster Name | Role | Phone | + +------+ + PCP | Unavailable | + +------+ + Encounter Details +--------+ + + + + | Date | Type | Department | Care Team | Description | +--------+ + + + + | 09/08/ | [facility] | [facility] | Naresh Mckeon | | | 1998 | Encounter | MED CTR SLEEP | MD Chaya [address] | | | | | CENTER [address] [place] | [place] | | | | | [place] | [place] [address] | | | | | [address] | [phone] | | | | | [phone] | | | +--------+ + + + [...] | | | | | [place] [address] | | | | | | [phone] | | | | | | | | +--------+---------+ + + + | 01/01/ | Office | Cardiology | Silvia, | | | 2020 | Visit | | PARISA Vernon [address] | | | | | | [place], | | | | | | [place] [address] | | | | | | [phone] | | | | | | | | +--------+---------+ + + + documented as of this encounter Visit Diagnoses Not on filedocumented in this encounter"
--- OUTSIDE RECORDS SUMMARY | ~2019-12-06 | XMS | Encounter Summary ---
Demographics + + + | Address | [address] | | | [place] [address] | + + + | Home Phone [...] + +------+ + | Care Protective Signal Operations Supervisor Name | Role | Phone [...] + | 06/23/ | Office | [facility] | [place]via, | Ascending thoracic | | 2016 | Visit | CARDIOLOGY [address] | PARISA [place] [address] | aortic aneurysm | | | | [place], | [place], | ([facility]) (Primary Dx); | | | | [place] [address] | [place] [address] | Coronary artery | | | | [phone] | [phone] | disease involving | | | | | | [place] coronary | | | | | | artery of [place] | | | | | | heart [...] in office in 6 months. hgabby, Janeen, SOLE CONFORMING MACHINE OPERATOR - 06/23/2016 12:45 PM PDT PATIENT NAME: Moe Sanchez : 1960: AGE: 56 y.o. PRIMARY CARE: Kirk French MD OUTPATIENT FOLLOW UP VISIT Date of Service: 06/23/2016 HISTORY OF PRESENT ILLNESS: Moe Sanchez is a 56 y.o. male with a history of non-critical coronary artery d isease involving [place] coronary artery of [place] heart without angina pectoris, essential h ypertension, [...] Preventative health care Coronary artery disease involving [place] coronary artery of [place] heart without angina pectoris Cannabis abuse, daily [...] by mouth every evening 90 tablet 3 [facility] Natural Products (OSTEO BI-FLEX/5-LOXIN ADVANCED PO) Take [...] 3rd dose, call 911 100 tablet 3 [place]-3 Fatty Acids (SALMON OIL-1000 PO) CAPS, one [...] reviewed during visit today primarily from [facility]: LIPID Lab Results Component Value Date [...] ASSESSMENT: 1. Non-critical Coronary artery disease involving [place] coronary artery of [place] heart [facility] angina pectoris: A. Normal exercise sestamibi [...] pain. He is in class I-II of [place] [employer] n functional class. There are [...] ventricular arrhythmia performed by Dr. Gambino at [facility] on 01/30/2013. Patient had [...] to go back in 3 days to [place] for an attempt of ablation under general [...] this chart may have been created with [email or web address] voice recognition software. Occasi onal wrong-word or [...] | | | | | | [place] [address] | | | | | | [phone] | | | | | | | | +--------+---------+ + + + | 01/01/ | Office | Cardiology | Silvia, | | | 2019 | Visit | | PARISA Vernon [address] | | | | | | [place], | | | | | | [place] [address] | | | | | | [phone] | | | | | | | [...] the | | | | PDT | pen[place]ot coronary | results section. | | | | | artery of [place] | | | | | | heart [...] SYDNI | | | | | | ([id number]) on 06/23/2016 | | | | | [...] + + | Coronary artery disease involving [place] coronary artery of [place] heart without | | angina pectoris | [...]
--- OUTSIDE RECORDS SUMMARY | ~2019-12-06 | XMS | Encounter Summary ---
Demographics + + + | Address | [address] | | | [place] [address] | + + + | Home Phone [...] Providers + +------+ + | Care Press Box Custodian Name | Role | Phone | [...] | Aneurysmal | Silvia, | [address] [place] | | | | | dilatation | PARISA Solis | [place], | | | | | (HCC) | [address] | [place] | | | | | Procedures | [place] | [address] | | | | | ECHO | [place], | Phone: | | | | | Complete | [place] | [phone] | | | | | | [address] | Fax: | | | | | | Phone: | [phone] | | | | | | [phone] | | | | | | | Fax: | | | | | | | [phone] | | +--------+--------+ + + + + Encounter Details +--------+ + + + + | Date | Type | Department | Care Team | Description | +--------+ + + + + | 11/16/ | Orders Only | [facility] [place] | [place], | Aneurysmal | | 2017 | | CARDIOLOGY [address] | PARISA Solis [address] | dilatation (HCC) | | | | [place], | [place], | (Primary Dx) | | | | [place] [address] | [place] [address] | | | | | [phone] | [phone] | | | | | | | [...] | | | | | [place] [address] | | | | | | [phone] | | | | | | | | +--------+---------+ + + + | 01/01/ | Office | Cardiology | Silvia, | | | 2019 | Visit | | PARISA Solis [address] | | | | | | [place], | | | | | | [place] [address] | | | | | | [phone] | | | | | | | [...] Patient Name VICTOR HUGO | | | [place] Room Number SARAH Patient | | | [id number] Date of Study 11/16/2017 Number | | | Visit Number [id number] | | | Referring Physician GURJIT TROY Number | | | NORMA SOLIS Date | | | of 1960 Supervisor Doping ROMAINE | | | MARISSA TIPTON Age 57 year(s) Interpreting | | | GURJIT TROY | | | Nurse Transplant SYDNI CAGLE, | | | | | | Gender Male Nurse | | | Stress Targeteer Procedure Type of | | | Study [...] | | | EF | | | Cfnaxezpn77% Left Ventricle Diastolic Dimension: 5.12 cm | [...] Volume: 46.33 ml | | | EF Kgxgpmycv09% | | | | | | Left [...] Rad Results In - 11/16/2017 1:48 PM [facility] Transthoracic Echocardiography Report | | (TTE) Demographics Patient Name [facility] Room Number SARAH | | Patient [id number] Date of Study 11/16/2017 Number Visit Number | | [id number] Referring Physician GURJIT TROY | | Number RHYNARD IRMA Date of | | 1960 Supervisor Doping ROMAINE TIPTON RDCS Age 57 year(s) | | Interpreting GURJIT TROY Nurse Transplant | | SYDNI CAGLE MD | | [...] LA Volume: 46.33 ml | | EF Xxmyvfodg37% Left Ventricle Diastolic Dimension: 5.12 cm Systolic [...] LA Volume: 46.33 ml | | EF Rxzcwqdll60% | | | | Left Ventricle | [...]
--- OUTSIDE RECORDS SUMMARY | ~2019-12-06 | XMS | Encounter Summary ---
Demographics + + + | Address | [address] | | | [place] [address] | + + + | Home Phone [...] | Visit | CARDIOLOGY [address] | CREDIT SPECIALIST [address] | Dx) | | | | [place], | [place], [place] | | | | | [place] [address] | [address] | | | | | [phone] | | | +--------+---------+ + + + [...] Sanchez Date: December 21, 2012 : 1960 Insert Operator: PARISA Velazquez Device Marketing Support Assistant: Medtronic Sense (mV) Impedance (?) Capture (V) Capture (ms) A Lead 4-5.6 423 1.5 0.09 RV Lead >31.36 539 2.0 0.09 LV Lead Battery Impedance (?): 301 Battery Voltage (V): 2.8 NV Interval (ms): 140 AR Interval (ms): 210 VA Conduction: Mode Switch Events: N/A % of time: -TEACHER DANCING: 0.6 AP-TEACHER DANCING: 1.3 -VS: 23.9 AP-VS: 74.2 TEACHER DANCING: Magnetic Rate: 85 LINDA: 65 LEAH: Current [...] | | | | | [place] [address] | | | | | | [phone] | | | | | | | | +--------+---------+ + + + | 01/01/ | Office | Cardiology | Silvia, | | | 2019 | Visit | | PARISA Vernon [address] | | | | | | [place], | | | | | | [place] [address] | | | | | | [phone] | | | | | | | [...]
--- OUTSIDE RECORDS SUMMARY | ~2019-12-06 | XMS | Encounter Summary ---
Demographics + + + | Address | [address] | | | [place] [address] | + + + | Home Phone [...] Providers + +------+ + | Care Credit Controller Name | Role | Phone | [...] 2019 | | GASTROENTEROLOGY | [address] [place], [place] | | | | | [address] [place] | [address] [place], [place] | | | | | [address] [place], [place] | [address] | | | | | [address] | | | | | | [phone] | | | +--------+ + + + [...] | | | | | [place] [address] | | | | | | [phone] | | | | | | | | +--------+---------+ + + + | 01/01/ | Office | Cardiology | Silvia, | | | 2019 | Visit | | PARISA Vernon [address] | | | | | | [place] | | | | | | [place] [address] | | | | | | [phone] | | | | | | | | +--------+---------+ + + + documented as of this encounter Visit Diagnoses Not on filedocumented in this encounter"
--- OUTSIDE RECORDS SUMMARY | ~2019-12-06 | XMS | Encounter Summary ---
Demographics + + + | Address | [address] | | | [place] [address] | + + + | Home Phone [...] Providers + +------+ + | Care Distribution District Supervisor Name | Role | Phone | + +------+ + | Kirk French MD | PCP | | + +------+ + Encounter Details +--------+ + + + + | Date | Type | Department | Care Team | Description | +--------+ + + + + | 06/19/ | Orders Only | [facility] | Fabrice Hylton, | Abnormal weight | | 2019 | | SYSTEM GENERIC OP | MD [address] | loss; Anxiety | | | | CONVERSION [address] | [address] [place], [place] | disorder; Chronic | | | | [address] [place], [place] | [address] | pain syndrome; | | | | [address] | | Obesity; Neuralgia | | | | [phone] | | and neuritis, | | | [...] | | | | | [place] [address] | | | | | | [phone] | | | | | | | | +--------+---------+ + + + | 01/01/ | Office | Cardiology | Silvia, | | | 2019 | Visit | | PARISA Vernon [address] | | | | | | [place], | | | | | | [place] [address] | | | | | | [phone] | | | | | | | [...]
--- OUTSIDE RECORDS SUMMARY | ~2019-12-06 | XMS | Encounter Summary ---
Demographics + + + | Address | [address] | | | [place] [address] | + + + | Home Phone [...] Team Providers + +------+ + | Care Trim Mechanic Name | Role | Phone | + +------+ + | Kirk French MD | PCP | | + +------+ + Encounter Details +--------+ + + + + | Date | Type | Department | Care Team | Description | +--------+ + + + + | 07/21/ | Hospital | [facility] | Daljit Singletary, | Palpitations; | | 2018 | Encounter | MED CTR NUCLEAR | MD [address] | Presence of | | | | MEDICINE [address] | [place], | permanent cardiac | | | | [place], | [place] [address] | pacemaker; | | | | [address] | [phone] | Sinoatrial node | | | | [phone] | | dysfunction (HCC) | +--------+ + [...] + + +---------+ + + | [place]-3 Fatty | CAPS, one capsule by | [...] | | | | | [place] [address] | | | | | | [phone] | | | | | | | | +--------+---------+ + + + | 01/01/ | Office | Cardiology | Silvia, | | | 2019 | Visit | | PARISA Vernon [address] | | | | | | [place], | | | | | | [place] [address] | | | | | | [phone] | | | | | | | [...]
--- OUTSIDE RECORDS SUMMARY | ~2019-12-06 | XMS | Encounter Summary ---
Demographics + + + | Address | [address] | | | [place] [address] | + + + | Home Phone [...] Providers + +------+ + | Care Physical Geographer Name | Role | Phone | + [...] 2015 | | CARDIOLOGY [address] | QUALITY CONTROL SPECIALIST [address] [place] | reprogramming/check | | | | [place], | [place], [place] | DO NOT DELETE | | | | [place] [address] | [address] | (Primary Dx); | | | | [phone] | | Pacemaker - | | | [...] | | | | | [place] [address] | | | | | | [phone] | | | | | | | | +--------+---------+ + + + | 01/01/ | Office | Cardiology | Silvia, | | | 2019 | Visit | | PARISA Vernon [address] | | | | | | [place], | | | | | | [place] [address] | | | | | | [phone] | | | | | | | [...] | | 2. Coronary artery disease involving [place] coronary artery of | | | [place] heart without angina pectoris I25.10 414.01 ECHO [...]
--- OUTSIDE RECORDS SUMMARY | ~2019-12-06 | XMS | Encounter Summary ---
Demographics + + + | Address | [address] [place] [address] [address] | | | [place] [address] | + + + | Home Phone [...] [place] | | | | | [address] | | + + + + + Care Team Providers + +------+ + | Care Marketing Content Manager Name | Role | Phone | [...] Yao | | | | | at [facility] | [facility] | | | | | [address] | [place] [address] | | | | | Loop Mailcode: | | | | | | [id number] | | | | | | [facility] | | | | | | [place], [place] | | | | | | [address] | | | | | | [phone] | | | +--------+ + + + [...] view image for the detailed interpretation from [employer] results. | CARDIOLOGY | + + + + + + + + | Performing | Address | City/State/Zipcode | Phone Number | | Organization | | | | + + + + + | [facility] | [address] | [place], [place] | | | CARDIOLOGY | [address] | [address] | | + + + + + documented in this encounter Visit Diagnoses Not on filedocumented in this encounter"
--- OUTSIDE RECORDS SUMMARY | ~2019-12-06 | XMS | Encounter Summary ---
Demographics + + + | Address | [address] | | | [place] [address] | + + + | Home Phone [...] Providers + +------+ + | Care Entry Engineer Name | Role | Phone | [...] 2019 | | GASTROENTEROLOGY | [address] [place], [place] | Syndrome | | | | [address] [place] | [address] [place], [place] | | | | | [address] [place], [place] | [address] | | | | | [address] | | | | | | [phone] | | | +--------+ + + + [...] | | | | | [place] [address] | | | | | | [phone] | | | | | | | | +--------+---------+ + + + | 01/01/ | Office | Cardiology | Silvia, | | | 2019 | Visit | | PARISA Vernon [address] | | | | | | [place] | | | | | | [place] [address] | | | | | | [phone] | | | | | | | | +--------+---------+ + + + documented as of this encounter Visit Diagnoses Not on filedocumented in this encounter"
--- OUTSIDE RECORDS SUMMARY | ~2019-12-06 | XMS | Encounter Summary ---
Demographics + + + | Address | [address] | | | [place] [address] | + + + | Home Phone [...] Providers + +------+ + | Care Engraver Machine Name | Role | Phone | [...] | RN | | | | | [place], | | | | | | [place] [address] | | | | | | [phone] | | | +--------+ + + + [...] [address] | | | | | | [place] [address] | | | | | | [phone] | | | | | | | | +--------+---------+ + + + | 01/01/ | Office | Cardiology | Silvia, | | | 2020 | Visit | | PARISA Vernon [address] | | | | | | [place], | | | | | | [place] [address] | | | | | | [phone] | | | | | | | | +--------+---------+ + + + documented as of this encounter Visit Diagnoses Not on filedocumented in this encounter"
--- OUTSIDE RECORDS SUMMARY | ~2019-12-06 | XMS | Encounter Summary ---
Demographics + + + | Address | [address] | | | [place] [address] | + + + | Home Phone [...] Providers + +------+ + | Care Product Engineering Manager Name | Role | Phone [...] [place] | | | | | [address] [place], [place] | [place] [address] | | | | | [address] | [phone] | | | | | [phone] | | | +--------+ + + + [...] | | | | | [place] [address] | | | | | | [phone] | | | | | | | | +--------+---------+ + + + | 01/01/ | Office | Cardiology | [place]via, | | | 2020 | Visit | | PARISA Vernon [address] | | | | | | [place], | | | | | | [place] [address] | | | | | | [phone] | | | | | | | | +--------+---------+ + + + documented as of this encounter Visit Diagnoses Not on filedocumented in this encounter"
--- OUTSIDE RECORDS SUMMARY | ~2019-12-06 | XMS | Encounter Summary ---
Demographics + + + | Address | [address] | | | [place] [address] | + + + | Home Phone [...] Team Providers + +------+ + | Care Purchaser Automotive Parts Name | Role | Phone | + +------+ + PCP | Unavailable | + +------+ + Encounter Details +--------+ + + + + | Date | Type | Department | Care Team | Description | +--------+ + + + + | 10/19/ | Hospital | [facility] | | | | 1992 | Encounter | MED CTR EMERGENCY | | | | | | CENTER [address] | | | | | | [place] | | | | | | [address] | | | | | | [phone] | | | +--------+ + + + [...] | | | | | [place] [address] | | | | | | [phone] | | | | | | | | +--------+---------+ + + + | 01/01/ | Office | Cardiology | Silvia, | | | 2020 | Visit | | PARISA Vernon [address] | | | | | | [place], | | | | | | [place] [address] | | | | | | [phone] | | | | | | | | +--------+---------+ + + + documented as of this encounter Visit Diagnoses Not on filedocumented in this encounter"
--- OUTSIDE RECORDS SUMMARY | ~2019-12-06 | XMS | Encounter Summary ---
Demographics + + + | Address | [address] | | | [place] [address] | + + + | Home Phone [...] Team Providers + +------+ + | Care Volcanologist Name | Role | Phone | + [...] + + | 01/05/ | Office | [facility] | [place], | Pacemaker - | | 2018 | Visit | CARDIOLOGY [address] | PARISA [place] [address] | [employer]tr[employer] [id number] | | | | [place], | [place], | [place] - Implanted | | | | [place] [address] | [place] [address] | 06/14/2009 (Primary | | | | [phone] | [phone] | Dx); Chest pain, | | | [...] involving | | | | | | [place] coronary | | | | | | artery of [place] | | | | | | heart [...] of non-critical coronary artery d isease involving [place] coronary artery of [place] heart without angina pectoris, essential h ypertension, [...] pain. He went to the ER in [place] because th e NTG didn't relieved the pain. He was diagnosed with bronchitis. Otherwise he has had no ot her symptoms. He has had a good energy level. He tries to stay active. He has joined a [employer] gym and trying to exercise more often. [...] Preventative health care Coronary artery disease involving [place] coronary artery of [place] heart without angina pectoris Cannabis abuse, daily [...] by mouth every evening 90 tablet 0 [facility] [place] [place] Natural Products (OSTEO BI-FLEX/5-LOXIN ADVANCED PO) [...] 3RD DOSE, CALL 911 100 tablet 3 [place]-3 Fatty Acids (SALMON OIL-1000 PO) CAPS, one [...] reviewed during visit today primarily from [facility]: LIPID Lab Results Component Value Date [...] 131 (A) 10/18/2017 I reviewed records from [facility] for office visit on 01/2017 whic [...] overload. 2. Non-critical Coronary artery disease involving [place] coronary a rtery of [place] heart without angina pectoris: A. Normal exercise [...] ventricular arrhythmia performed by Dr. Gambino at [facility] on 01/30/2013. Patient had spontaneous PVCs [...] to go back in 3 days to [place] for an attempt of ablation under general [...] normal stable device function. Estimated remaining [facility] longevity is 3.5 years.. 5. [...] this chart may have been created with [employer] voice recognition software. Occasi onal wrong-word or [...] | | | | | [place] [address] | | | | | | [phone] | | | | | | | | +--------+---------+ + + + | 01/01/ | Office | Cardiology | [place], | | | 2020 | Visit | | PARISA Vernon [address] | | | | | | [place], | | | | | | [place] [address] | | | | | | [phone] | | | | | | | [...] dysfunction | | | | | | ([facility]) with | | | | | | symptomatic | | | | | | bradycardia | | | | | | Symptomatic PVCs | | | | | | Tachycardia | | | | | | Coronary artery | | | | | | disease involving | | | | | | [place] coronary | | | | | | artery of [place] | | | | | | heart [...] | | | | | | ([facility]) | | + +--------+ + [...] MD | | | | | | ([id number]) on 01/06/2018 | | | | | [...] + + | Coronary artery disease involving [place] coronary artery of [place] heart without | | angina pectoris | + + | Hyperlipidemia, mixed Mixed hyperlipidemia | + + | Hypertension, unspecified type | + + | Syncope, unspecified syncope type | + + | Ascending thoracic aortic aneurysm (HCC) Thoracic aneurysm without mention of rupture | + + documented in this encounter
--- OUTSIDE RECORDS SUMMARY | ~2019-12-06 | XMS | Encounter Summary ---
Demographics + + + | Address | [address] | | | [place] [address] | + + + | Home Phone [...] Providers + +------+ + | Care Supervisor Cigar Processing Name | Role | Phone | [...] [address] | | | | [place], | [place], | | | | | [place] [address] | [place] [address] | | | | | [phone] | [phone] | | | | | | | [...] | | | | | [place] [address] | | | | | | [phone] | | | | | | | | +--------+---------+ + + + | 01/01/ | Office | Cardiology | Silvia, | | | 2020 | Visit | | PARISA Vernon [address] | | | | | | [place], | | | | | | [place] [address] | | | | | | [phone] | | | | | | | [...] | [facility] | | [address] | | | - LABORATORY | | [...] +---------+ + + External Lab: Marcelina CHOWDHURY (01/25/2014 11:43 AM PST) + +-------+ + [...] | | | LAB | | | [place], | | | | | | External [...] | [facility] | | [address] | | | - LABORATORY | | [...]
--- OUTSIDE RECORDS SUMMARY | ~2019-12-06 | XMS | Encounter Summary ---
Demographics + + + | Address | [address] | | | [place] [address] | + + + | Home Phone [...] Providers + +------+ + | Care Kiln Placer Name | Role | Phone | [...] | disease involving | | | | [place], | [place], | mechoopda coronary | | | | [place] [address] | [place] [address] | artery of mechoopda | | | | [phone] | [phone] | heart without angina | | | [...] | | | | | | [address] [place] | | | | | | [place] [address] | | | | | | [phone] | | | | | | | | +--------+---------+ + + + | 01/01/ | Office | Cardiology | Silvia, | | | 2019 | Visit | | PARISA Vrenon [address] | | | | | | [place], | | | | | | [place] [address] | | | | | | [phone] | | | | | | | [...] MD | | | | | | ([id number]) on 06/23/2016 | | | | | [...]
--- OUTSIDE RECORDS SUMMARY | ~2019-12-06 | XMS | Encounter Summary ---
Demographics + + + | Address | [address] | | | [place] [address] | + + + | Home Phone [...] Team Providers + +------+ + | Care Icebox Worker Name | Role | Phone | [...] [address] | | | | | | [place], [place] | (Fax) | | | | | [address] | | | | | | [phone] | | | +--------+ + + + [...] | | | | | [place] [address] | | | | | | [phone] | | | | | | | | +--------+---------+ + + + | 01/01/ | Office | Cardiology | Silvia, | | | 2020 | Visit | | PARISA Vernon [address] | | | | | | [place], | | | | | | [place] [address] | | | | | | [phone] | | | | | | | | +--------+---------+ + + + documented as of this encounter Visit Diagnoses Not on filedocumented in this encounter"
--- OUTSIDE RECORDS SUMMARY | ~2019-12-06 | XMS | Encounter Summary ---
Demographics + + + | Address | [address] [place] [address] [address] | | | [place] [address] | + + + | Home Phone [...] [place] | | | | | [address] | | + + + + + Care Team Providers + +------+ + | Care Security Incident Handler Name | Role | Phone | [...] | | | [address] | [place], [place] | | | | | Mailcode: [place] | [address] | | | | | for Health and | [phone] | | | | | [facility] | | | | | | [place], [place] | | | | | | [address] | | | | | | [phone] | | | +--------+ + + + [...]
--- OUTSIDE RECORDS SUMMARY | ~2019-12-06 | XMS | Encounter Summary ---
Demographics + + + | Address | [address] | | | [place] [address] | + + + | Home Phone [...] Providers + +------+ + | Care Educational Recruiter Name | Role | Phone | + +------+ + PCP | Unavailable | + +------+ + Encounter Details +--------+ + + + + | Date | Type | Department | Care Team | Description | +--------+ + + + + | 10/26/ | Hospital | [facility] | | | | 1994 | Encounter | [facility] | | | | | | CENTER [address] | | | | | | [place] | | | | | | [address] | | | | | | [phone] | | | +--------+ + + + [...] | | | | | [place] [address] | | | | | | [phone] | | | | | | | | +--------+---------+ + + + | 01/01/ | Office | Cardiology | Silvia, | | | 2020 | Visit | | PARISA Vernon [address] | | | | | | [place], | | | | | | [place] [address] | | | | | | [phone] | | | | | | | | +--------+---------+ + + + documented as of this encounter Visit Diagnoses Not on filedocumented in this encounter"
--- OUTSIDE RECORDS SUMMARY | ~2019-12-06 | XMS | Encounter Summary ---
Demographics + + + | Address | [address] | | | [place] [address] | + + + | Home Phone [...] Team Providers + +------+ + | Care Granite Polisher Machine Name | Role | Phone | [...] | | | | exertion | | [address] [place] | | | | | Chest pain | | [place], [place] | | | | | on exertion | | [address] | | | | | | | Phone: | | | | | | | [phone] | | | | | | | Fax: | | | | | | | [phone] | +--------+--------+ + + + + Encounter Details +--------+ + + + + | Date | Type | Department | Care Team | Description | +--------+ + + + + | [facility]/27/ | [facility] Martell Hart | Chest pain on | | 2014 - | | MED CTR MEDICAL | Sanjay Palacios MD | exertion (Primary | | | | [address] [place] | [address] | Dx); Dyspnea on | | 03/20/ | | [place] [address] | [place], [place] | exertion; Essential | | 2014 | | [phone] | [address] | hypertension; Acute | | | | | | chest pain; | | | | | Parth Kraft, | Dizziness, | | | | | [address] | nonspecific; Mixed | | | | | [place], [place] | anxiety depressive | | | | | [address] | disorder; PUD | | | | | [phone] | (peptic ulcer | | | | [...] might be different f rom the original. [facility] DISCHARGE SUMMARY Pt. Name/Age/: Moe Sanchez [...] aka: NITROSTAT ONE TOUCH DELICA LANCETS [facility] Check glucose as needed for hypoglycemia OSTEO [...] Daily. to reduce urinary frequency - Lot #[id number], exp 07/2016 aka: RAPAFLO UNCODED MEDICATION - [...] hospital follow up Contact information: [address] [address] Call PARISA Russell. Specialty: Nurse Practitioner Why: As needed Contact information: [address] [place] [address] Condition: Patient being discharged with condition improved. Diet: Heart healthy, avoid acidic drinks and foods, spicy foods, too much coffee. Greater than 30 minutes were spent on discharge and coordination of post-hospital care. Electronically signed by: Thierry Fregoso DO, 03/20/2015 11:22 [facility] Portions of this chart may have been created with [employer] voice recognition software. Occasi onal wrong-word or [...] afford the prescribed medication, you can try weou-wjf-jszfzgz acid blockers, such as Pepcid AC, Tagamet, [...] or as directed by your healthcare provider 3250-1135 [employer]. [address] [place] [address]. All righ ts reserved. This information is [...] + + + +---------+ + + | [place]-3 Fatty | CAPS, one capsule by | [...] | | | | | | | #[id number], exp 07/2016 | | | | | [...] DO - 03/19/2015 10:09 PM PDT . [facility] PROGRESS NOTE Patient: Moe Sanchez : 1960: Age: 55 y.o. MedRec: [id number] PCP: Kirk French Admission date: 03/18/2015 Hospital [...] tablet 40 mg 40 mg Oral Nightly Parht Kraft MD 40 mg a t 03/19/152033 [...] 1708 03/18/15 1528 TROPONINI <0.01 <0.01 0.01 [facility] ECHOCARDIOGRAM REPORT STUDY DATE: 03/19/2015 PATIENT [...] changes. No results for input(s): PHART, PO2ART, JKA7GAN, AOR2UJN, BEART, D8XUEDPW in the last 168 h ours. No results for input(s): SPECSOURCE, PHPOCB, HCO3, TCO2, BEART, BE, HDUC4GMB in the last 16 8 hours. Invalid input(s): PNDVE9RP, KAID9GK Point of care glucose: No results for [...] minutes today. Thierry Fregoso DO 03/19/2015 22:09 [facility] Portions of this chart may have been created with [employer] voice recognition software. Occasi onal wrong-word or sound-alike substitutions may have occurred due to the inherent granger itations of voice recognition software. Please read the chart carefully and recognize, using context, where these substitutions have occurred Belén Cho RN - 03/19/2015 11:03 AM [id number] Report given to Marlen morejon who is assuming care. Electronically signed by: Jaja Hay RN 03/19/2015 11:04 Dieter Diamond RN - 03/19/2015 10:44 AM PDTAssumed care of patient, received report from MONROE Wilkinson. documented in t his encounter Plan of Treatment +--------+---------+ + + + | Date | Type | Specialty | Care Team | Description | +--------+---------+ + + + | 12/18/ | Office | Gastroenterology | Darin Gandhi | | | 2019 | Visit | | MD Jacek [address] | | | | | | [address] | | | | | | [place] [address] | | | | | | [phone] | | | | | | | | +--------+---------+ + + + | 01/01/ | Office | Cardiology | Silvia, | | | 2019 | Visit | | PARISA Vernon [address] | | | | | | [place], | | | | | | [place] [address] | | | | | | [phone] | | | | | | | [...] Performed At | + + + | [facility] ECHOCARDIOGRAM REPORT | | | STUDY [...] | | Signed by: Daljit Singletary MD [facility] 03/19/2015 15:44 | | | Honey Extractor: Dewey Valdez RDMS | | + + [...] | | | | | | [employer] | | | | | [...] [address] | [place] | [phone] | | [facility] | | [address] | | | - LABORATORY | | | | + + + + + Basic Metabolic Panel (03/19/2015 3:50 AM PDT) + + + + + + | Component | Value | Ref Range | Performed | Pathologist | | | | | At | Signature | + + + + + + | Na | 135 (L) | 136 - 149 | [facility] | | | | | mmol/L | [...] mL/min/1.73m2 | [facility] | | | MALDIVIAN | RATE,ESTIMATED | | MEDICAL | | | | mL/min/1.94m7Dmhz than | | CENTER - | | [...] [address] | [place] | [phone] | | [facility] | | [address] | | | - LABORATORY | | [...] [address] | [place] | [phone] | | [facility] | | [address] | | | - LABORATORY | | [...] | | | | | | [employer] | | | | | [...] ST. | [address] | [place], [place] | [phone] | | [facility] | | [address] | | | - LABORATORY | | [...] + | [facility] | [address] | [place] | [phone] | | [facility] | | [address] | | | - LABORATORY | | | | + + + + + B Type Natriuretic Peptide (03/18/2015 3:34 PM PDT) + +-------+ + + + | Component | Value | Ref Range | Performed | Pathologist | | | | | At | Signature | + +-------+ + + + | BNP | 11 | <100 pg/mL | [facility] | | | | | [...] [address] | [place] | [phone] | | [facility] | | [address] | | | - LABORATORY | | [...] ST. | [address] | [place] | [phone] | | [facility] | | [address] | | | - LABORATORY | | [...] [address] | [place] | [phone] | | [facility] | | [address] | | | - LABORATORY | | [...] | | | | | | [employer] | | | | | [...] + | [address] | [address] | [place] | [phone] | | [facility] | | [address] | | | - LABORATORY | | | | + + + + + Lipase (03/18/2015 3:28 PM PDT) + +-------+ + + + | Component | Value | Ref Range | Performed | Pathologist | | | | | At | Signature | + +-------+ + + + | Lipase | 23 | 0 - 60 U/L | [facility] | | | | | | ST. [address] | [place] | [phone] | | [facility] | | [address] | | | - LABORATORY | | [...] mL/min/1.73m2 | [facility] | | | MALDIVIAN | RATE,ESTIMATED | | MEDICAL | | | | mL/min/1.01j2Jywl than | | CENTER - | | [...] + | [facility] | [address] | [place] | [phone] | | [facility] | | [address] | | | - LABORATORY | | [...] [address] | [place] | [phone] | | [facility] | | [address] | | | - LABORATORY | | [...] 15 8:26 | | | | | Kadeeme 03/19/15 at 0900 | | AM PDT [...] | | | | First dose on 4/27/15 at | | AM PDT | | [...] | | | | | | | Wed03/19/15 at 2230, Do not cut | | [...]
--- OUTSIDE RECORDS SUMMARY | ~2019-12-06 | XMS | Encounter Summary ---
Demographics + + + | Address | [address] | | | [place] [address] | + + + | Home Phone [...] Providers + +------+ + | Care Client Finance Analyst Name | Role | Phone | [...] [address] | | | | | [place], [place] | [address] | | | | | [address] | [place] [address] | | | | | [phone] | [phone] | | | | | | | [...] | | | | | [place] [address] | | | | | | [phone] | | | | | | | | +--------+---------+ + + + | 01/01/ | Office | Cardiology | Silvia, | | | 2019 | Visit | | PARISA Vernon [address] | | | | | | [place], | | | | | | [place] [address] | | | | | | [phone] | | | | | | | [...]
--- OUTSIDE RECORDS SUMMARY | ~2019-12-06 | XMS | Encounter Summary ---
Demographics + + + | Address | [address] [place] [address] [address] | | | [place] [address] | + + + | Home Phone [...] [place] | | | | | [address] | | + + + + + Care Team Providers + +------+ + | Care Automated Cutting Machine Operator Name | Role | [...] | 2019 | | Center at [facility] [address] | MD [address] | | | | | [address] | [place], [place] | | | | | Mailcode: Center | [address] | | | | | [facility] and | [phone] | | | | | [facility] | | | | | | [place], [place] | | | | | | [address] | | | | | | [phone] | | | +--------+ + + + [...]
--- OUTSIDE RECORDS SUMMARY | ~2019-12-06 | XMS | Encounter Summary ---
Demographics + + + | Address | [address] | | | [place] [address] | + + + | Home Phone [...] Providers + +------+ + | Care Manager Skilled Name | Role | Phone | + [...] + | 01/30/ | Telephone | [facility] | Daljit Singletary, | Other | | 2019 | | CARDIOLOGY [address] | MD [address] | | | | | [place], | [place], | | | | | [place] [address] | [place] [address] | | | | | [phone] | [phone] | | | | | | | [...] | | | | | [place] [address] | | | | | | [phone] | | | | | | | | +--------+---------+ + + + | 01/01/ | Office | Cardiology | Silvia, | | | 2019 | Visit | | PARISA Vernon [address] | | | | | | [place], | | | | | | [place] [address] | | | | | | [phone] | | | | | | | [...] 05/02/2019, Expires: | | | | | cocopah coronary | 01/30/2020 | | | | | artery of cocopah | | | | | | heart [...] 05/02/2019, Expires: | | | | | cocopah coronary | 01/31/2020 | | | | | artery of cocopah | | | | | | heart without angina | | | | | | pectoris | | | | | | Hyperlipidemia, | | | | | | mixed | | + +------+--------+ + + documented as of this encounter Visit Diagnoses + + | Diagnosis | + + | Coronary artery disease involving cocopah coronary artery of cocopah heart without | | angina pectoris - Primary | + + | Hyperlipidemia, mixed Mixed hyperlipidemia | + + documented in this encounter"
--- OUTSIDE RECORDS SUMMARY | ~2019-12-06 | XMS | Clinical Summary ---
Demographics + + + | Address | [address] | | | [place] [address] | + + + | Home Phone | | + + + | Preferred Language | Unknown | + + + | Marital Status | | + + + | Hoahaoism Affiliation | 1013 | + + + | Race | Unknown | + + + | Ethnic Group | Unknown | + + + Author + + + | Author | Alere [facility] (Historical as of | | | 07-08-19) | + + + | Organization | [facility] (Historical as of | | | 07-08-19) [...] Team Providers + +------+ + | Care Pillowcase Maker Name | Role | Phone | [...] + | AUTO INSURANCE | AUTO | [id number] | | | | | | INSURA | | | | | | | NCE | | | | | | | GENERI | | | | | | | C | | | | | + +--------+ +------+-------+ + | AUTO INSURANCE | AUTO | [id number] | | | | | | INSURA | [id number] | | | | | | NCE | | | | | | | GENERI | | | | | | | C | | | | | + +--------+ +------+-------+ + | MEDICARE | MEDICA | [id number] | | | [address] | | | RE | | | | [place], [place] [address] | | | IP-OP | | | | | + +--------+ +------+-------+ + | [facility] | [place] | [id number] | | | | | | | [...] | Self | [birth year] | Home: | [address] | | | al/Fam | | 9 | [address]- | [address] [place], [place] | | | roxanne | | | [address] | [address] | + +--------+ +--------+ + + | AMILCAR GAY | Third | Self | [birth year] | Home: | [address] | | | Republican | | 9 | +- | [place], [place] | | | [address] | | | [address] | [address] | | | ity | | | | | + +--------+ +--------+ + + | AMILCAR GAY | Third | Self | [birth year] | Home: | [address] | | | Republican | | 1960 | +- | [place], [place] | | | [address] | | | [address] | [address] | | | ity | | | | | + +--------+ +--------+ + +
--- OUTSIDE RECORDS SUMMARY | ~2019-12-06 | XMS | Encounter Summary ---
Demographics + + + | Address | [address] | | | [place] [address] | + + + | Home Phone [...] Team Providers + +------+ + | Care Crystallography Teacher Name | Role | Phone | [...] 2012 | | CARDIOLOGY [address] | PLEAT TAPER [address] | | | | | [place], | [place] [facility], [place] | | | | | [place] [address] | [address] | | | | | [phone] | | | +--------+ + + + [...] | | | | | | [place] [address] | | | | | | [phone] | | | | | | | | +--------+---------+ + + + | 01/01/ | Office | Cardiology | Silvia, | | | 2019 | Visit | | PARISA Vernon [address] | | | | | | [place], | | | | | | [place] [address] | | | | | | [phone] | | | | | | | | +--------+---------+ + + + documented as of this encounter Visit Diagnoses Not on filedocumented in this encounter"
--- OUTSIDE RECORDS SUMMARY | ~2019-12-06 | XMS | Encounter Summary ---
Demographics + + + | Address | [address] | | | [place] [address] | + + + | Home Phone [...] Team Providers + +------+ + | Care Bowling Ball Grader Name | Role | Phone | + +------+ + | Kirk French MD | PCP | | + +------+ + Encounter Details +--------+ + + + + | Date | Type | Department | Care Team | Description | +--------+ + + + + | 11/16/ | Hospital | [facility] | Kirk French | Aneurysm (HCC) | | 2017 | Encounter | MED CTR ULTRASOUND | D, MD [address] | | | | | [address] [place] | [address] | | | | | [place], [place] | [place] [address] | | | | | [address] | [phone] | | | | | [phone] | | | | | | | [...] + + + +---------+ + + | [place]-3 Fatty | CAPS, one capsule by | [...] | | | | | | [place] [address] | | | | | | [phone] | | | | | | | | +--------+---------+ + + + | 01/01/ | Office | Cardiology | Silvia, | | | 2019 | Visit | | PARISA Vernon [address] | | | | | | [place], | | | | | | [place] [address] | | | | | | [phone] | | | | | | | [...]
--- OUTSIDE RECORDS SUMMARY | ~2019-12-06 | XMS | Encounter Summary ---
Demographics + + + | Address | [address] | | | [place] [address] | + + + | Home Phone [...] Providers + +------+ + | Care Hospice Case Manager Name | Role | Phone [...] | | | pain | [address] | [address] | | | | | Procedures | [place] | [place], | | | | | [place] Nuclear | [place], [place] | [place] | | | | | Stress Test | [address] | [address] | | | | | (Vasodilator | Phone: | Phone: | | | | | ) CHG | [phone] | [phone] | | | | | MYOCARDIAL | Fax: | Fax: | | | | | SPECT | [phone] | [phone] | | | | | MULTIPLE | [...] 2012 | | CARDIOLOGY [address] | MOLD CARPENTER [address] | interactions, chest | | | | [address] [place], | [place], [place] | pain) | | | | [place] [address] | [address] | | | | | [phone] | | | +--------+ + + + [...] | | | | | | [place] [address] | | | | | | [phone] | | | | | | | | +--------+---------+ + + + | 01/01/ | Office | Cardiology | [place]via, | | | 2019 | Visit | | PARISA Vernon [address] | | | | | | [place], | | | | | | [place] [address] | | | | | | [phone] | | | | | | | | +--------+---------+ + + + documented as of this encounter Results [place] Nuclear Stress Test (Vasodilator) (12/07/2013 7:01 AM PST) + + | Specimen | + + | | + + + + + | Narrative | Performed At | + + + | [facility] | DAR[place]EN | | [address] | [facility] | | [ rep [address]] [ rep [facility] | | st zip] Signed | - IMAGING | | | | | Patient Name: MOE GAY | | | Physician: JACKLYN : 1960 Age: 53 Sex: M Unit | | | #: [id number] Exam Date: 12/06/13 Location: | | | [facility] Report #: [id number] Page: | | | %(RAD)RES..mtdd.print.filter("pg") of %(RAD) | | | RES..mtdd.print.filter("tpg") | | | | | | Accession Number: [id number] | | | PERSANTINE SESTAMIBI STRESS TEST, [...] Transcribed Date/Time: 12/07/2013 08:18 | | | Engine Repairer Production: <<Signature on File>> | | | | | | Daljit Singletary MD [facility]12/07/13 1321 <Electronically signed | | | by Daljit Singletary MD, [facility], FACP, FASE, FASME> Daljit | | | MD Gemini [facility] 12/07/13 0701 Engine Repairer Production: Jessica | | | [id number]/16/14 0818 [place] Garcia | | + + + + + + + + | Performing | Address | City/State/Zipcode | Phone Number | | Organization | | | | + + + + + | [facility] | [address] | [place] | [phone] | | [facility] | | [address] | | | - IMAGING | | | | + + + + + documented in this encounter Visit Diagnoses + + | Diagnosis | + + | Other chest pain - Primary | + + documented in this encounter
--- OUTSIDE RECORDS SUMMARY | ~2019-12-06 | XMS | Encounter Summary ---
Demographics + + + | Address | [address] | | | [place] [address] | + + + | Home Phone [...] Team Providers + +------+ + | Care Orthotic Assistant Name | Role | Phone | [...] + | 06/27/ | Telephone | [facility] | Michael Amanda, | ED Follow-up (s/p | | 2014 | | [facility] [place] | DO [address] | [facility] | | | | [address] | [place] | | | | | [place] | [address] | | | | | [address] | | | | | | [phone] | | | +--------+ + + + [...] | | | | | | [place] [address] | | | | | | [phone] | | | | | | | | +--------+---------+ + + + | 01/01/ | Office | Cardiology | [place], | | | 2019 | Visit | | PARISA Vernon [address] | | | | | | [place], | | | | | | [place] [address] | | | | | | [phone] | | | | | | | | +--------+---------+ + + + documented as of this encounter Visit Diagnoses Not on filedocumented in this encounter"
--- OUTSIDE RECORDS SUMMARY | ~2019-12-06 | XMS | Encounter Summary ---
Demographics + + + | Address | [address] | | | [place] [address] | + + + | Home Phone [...] Providers + +------+ + | Care Rail Gang Supervisor Name | Role | Phone | [...] + | 11/05/ | Telephone | [facility] | Daljit Singletary, | Chest Pain | | 2016 | | CARDIOLOGY [address] | MD [address] [place] | | | | | [place], | [place], | | | | | [place] [address] | [place] [address] | | | | | [phone] | [phone] | | | | | | | [...] | | | | | [place] [address] | | | | | | [phone] | | | | | | | | +--------+---------+ + + + | 01/01/ | Office | Cardiology | [place], | | | 2019 | Visit | | PARISA [place] [address] | | | | | | [place], | | | | | | [place] [address] | | | | | | [phone] | | | | | | | | +--------+---------+ + + + documented as of this encounter Visit Diagnoses Not on filedocumented in this encounter"
--- OUTSIDE RECORDS SUMMARY | ~2019-12-06 | XMS | Encounter Summary ---
Demographics + + + | Address | [address] | | | [place] [address] | + + + | Home Phone [...] + +------+ + | Care Director Of Event Management Name | Role | Phone | + [...] | CARDIOLOGY [address] | [address] | Interrogation | | | | [place], | [place], | (Primary Dx); | | | | [place] [address] | [place] [address] | Pacemaker; | | | | [phone] | [phone] | Sinoatrial node | | | | [...] | | | | | [place] [address] | | | | | | [phone] | | | | | | | | +--------+---------+ + + + | 01/01/ | Office | Cardiology | [place], | | | 2019 | Visit | | PARISA [place] [address] | | | | | | [place] | | | | | | [place] [address] | | | | | | [phone] | | | | | | | [...] remote PDF scanned into | | | Kivo for remote interrogation results. Data collected by [...]
--- OUTSIDE RECORDS SUMMARY | ~2019-12-06 | XMS | Encounter Summary ---
Demographics + + + | Address | [address] | | | [place] [address] | + + + | Home Phone [...] Providers + +------+ + | Care Sample Driller Name | Role | Phone | + +------+ + | Kirk French MD | PCP | | + +------+ + Encounter Details +--------+ + + + + | Date | Type | Department | Care Team | Description | +--------+ + + + + | 12/24/ | Anesthesia | [facility] | Jarett Barakat | | | 2018 | Event | MED CTR MP INTRA OP | P, MD [address] | | | | | [address] | [place], [place] | | | | | [place], [place] | [address] | | | | | [address] | [phone] | | | | | [phone] | | | | | | | Arthur Wesley, | | | | | | [address] | | | | | | [place], [place] | | | | | | [address] | | | | | | | [...] 12/24/17 1435 by | | eral | kvsi-koi-gqdqro catheter system; | Desmond Teresa RN | [...] | | | | | [place] [address] | | | | | | [phone] | | | | | | | | +--------+---------+ + + + | 01/01/ | Office | Cardiology | Silvia, | | | 2019 | Visit | | PARISA [place] [address] | | | | | | [place] | | | | | | [place] [address] | | | | | | [phone] | | | | | | | [...]
--- OUTSIDE RECORDS SUMMARY | ~2019-12-06 | XMS | Encounter Summary ---
Demographics + + + | Address | [address] | | | [place] [address] | + + + | Home Phone [...] Team Providers + +------+ + | Care Coutierier Name | Role | Phone | + [...] [address] | | | | | | [place], [place] | (Fax) | | | | | [address] | | | | | | [phone] | | | +--------+ + + + [...] | | | | | [place] [address] | | | | | | [phone] | | | | | | | | +--------+---------+ + + + | 01/01/ | Office | Cardiology | Silvia, | | | 2020 | Visit | | PARISA [place] [address] | | | | | | [place], | | | | | | [place] [address] | | | | | | [phone] | | | | | | | | +--------+---------+ + + + documented as of this encounter Visit Diagnoses Not on filedocumented in this encounter"
--- OUTSIDE RECORDS SUMMARY | ~2019-12-06 | XMS | Encounter Summary ---
Demographics + + + | Address | [address] | | | [place] [address] | + + + | Home Phone [...] | initial encounter; | | | | [place], [place] | | Elevated blood | | | | [address] | | pressure reading; | | | | [phone] | | Numbness and | | | [...] + + +---------+ + + | [place]-3 Fatty | CAPS, one capsule by | [...] | | | | | | [place] [address] | | | | | | [phone] | | | | | | | | +--------+---------+ + + + | 01/01/ | Office | Cardiology | Silvia, | | | 2019 | Visit | | PARISA [place] [address] | | | | | | [place], | | | | | | [place] [address] | | | | | | [phone] | | | | | | | [...]
--- OUTSIDE RECORDS SUMMARY | ~2019-12-06 | XMS | Encounter Summary ---
Demographics + + + | Address | [address] | | | [place] [address] | + + + | Home Phone [...] Providers + +------+ + | Care District Captain Name | Role | Phone | + +------+ + PCP | Unavailable | + +------+ + Encounter Details +--------+ + + + + | Date | Type | Department | Care Team | Description | +--------+ + + + + | 11/14/ | [facility] | [facility] | William Hirsch | | | 1999 | Encounter | MED CTR EMERGENCY | MD Cristobal [address] | | | | | CENTER [address] | [address] [place] | | | | | [place] | [place] [address] | | | | | [address] | [phone] | | | | | [phone] | | | +--------+ + + + [...] | | | | | [place] [address] | | | | | | [phone] | | | | | | | | +--------+---------+ + + + | 01/01/ | Office | Cardiology | [place], | | | 2020 | Visit | | PAR[place] [address] | | | | | | [place], | | | | | | [place] [address] | | | | | | [phone] | | | | | | | | +--------+---------+ + + + documented as of this encounter Visit Diagnoses Not on filedocumented in this encounter"
--- OUTSIDE RECORDS SUMMARY | ~2019-12-06 | XMS | Encounter Summary ---
Demographics + + + | Address | [address] | | | [place] [address] | + + + | Home Phone [...] Providers + +------+ + | Care Gas Engine Mechanic Name | Role | Phone | + +------+ + PCP | Unavailable | + +------+ + Encounter Details +--------+ + + + + | Date | Type | Department | Care Team | Description | +--------+ + + + + | 12/16/ | Hospital | [facility] | | | | 2010 | Encounter | MED CTR LABORATORY | | | | | | [address] | | | | | | [place] | | | | | | [address] | | | | | | [phone] | | | +--------+ + + + [...] | | | | | [place] [address] | | | | | | [phone] | | | | | | | | +--------+---------+ + + + | 01/01/ | Office | Cardiology | Silvia, | | | 2020 | Visit | | PAR[place] [address] | | | | | | [place], | | | | | | [place] [address] | | | | | | [phone] | | | | | | | | +--------+---------+ + + + documented as of this encounter Visit Diagnoses Not on filedocumented in this encounter"
--- OUTSIDE RECORDS SUMMARY | ~2019-12-06 | XMS | Encounter Summary ---
Demographics + + + | Address | [address] | | | [place] [address] | + + + | Home Phone [...] Providers + +------+ + | Care Geophysical Operator Name | Role | Phone | + +------+ + PCP | Unavailable | + +------+ + Encounter Details +--------+ + + + + | Date | Type | Department | Care Team | Description | +--------+ + + + + | 08/26/ | Hospital | [facility] | | | | 2009 | Encounter | MED CTR LABORATORY | | | | | | [address] | | | | | | [place] | | | | | | [address] | | | | | | [phone] | | | +--------+ + + + [...] | | | | | [place] [address] | | | | | | [phone] | | | | | | | | +--------+---------+ + + + | 01/01/ | Office | Cardiology | [place]via, | | | 2020 | Visit | | PARISA [place] [address] | | | | | | [place], | | | | | | [place] [address] | | | | | | [phone] | | | | | | | | +--------+---------+ + + + documented as of this encounter Visit Diagnoses Not on filedocumented in this encounter"
--- OUTSIDE RECORDS SUMMARY | ~2019-12-06 | XMS | Encounter Summary ---
Demographics + + + | Address | [address] | | | [place] [address] | + + + | Home Phone [...] Team Providers + +------+ + | Care Va Underwriter Name | Role | Phone | [...] + | 01/30/ | Telephone | [facility] | Daljit Singletary, | Other | | 2019 | | CARDIOLOGY [address] | MD [address] | | | | | [place], | [place], | | | | | [place] [address] | [place] [address] | | | | | [phone] | [phone] | | | | | | | [...] | | | | | [place] [address] | | | | | | [phone] | | | | | | | | +--------+---------+ + + + | 01/01/ | Office | Cardiology | [place], | | | 2019 | Visit | | [place] [address] | | | | | | [place], | | | | | | [place] [address] | | | | | | [phone] | | | | | | | [...] 05/02/2019, Expires: | | | | | ambler coronary | 01/30/2020 | | | | | artery of ambler | | | | | | heart [...] 05/02/2019, Expires: | | | | | ambler coronary | 01/31/2020 | | | | | artery of ambler | | | | | | heart without angina | | | | | | pectoris | | | | | | Hyperlipidemia, | | | | | | mixed | | + +------+--------+ + + documented as of this encounter Visit Diagnoses + + | Diagnosis | + + | 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
--- OUTSIDE RECORDS SUMMARY | ~2019-12-06 | XMS | Encounter Summary ---
Demographics + + + | Address | [address] [place] [address] [address] | | | [place] [address] | + + + | Home Phone [...] [place] | | | | | [address] | | + + + + + Care Team Providers + +------+ + | Care Mail Teller Name | Role | Phone | [...]
--- OUTSIDE RECORDS SUMMARY | ~2019-12-06 | XMS | Encounter Summary ---
Demographics + + + | Address | [address] | | | [place] [address] | + + + | Home Phone [...] Providers + +------+ + | Care Tail End Rider Name | Role | Phone | [...] + + | 12/14/ | Telephone | [facility] | Emmanuel Daniel MD | Follow-up, Office | | 2019 | | GASTROENTEROLOGY | [address] [place], [place] | Visit (wants to | | | | [address] [place] | [address] [place] | cancel his office | | | | [address] [place] | [address] | appointment today) | | | | [address] | | | | | | [phone] | | | +--------+ + + + [...] | | | | | [place] [address] | | | | | | [phone] | | | | | | | | +--------+---------+ + + + | 01/01/ | Office | Cardiology | [place]via, | | | 2019 | Visit | | PARISA [place] [address] | | | | | | [place], | | | | | | [place] [address] | | | | | | [phone] | | | | | | | | +--------+---------+ + + + documented as of this encounter Visit Diagnoses Not on filedocumented in this encounter"
--- OUTSIDE RECORDS SUMMARY | ~2019-12-06 | XMS | Encounter Summary ---
Demographics + + + | Address | [address] | | | [place] [address] | + + + | Home Phone [...] Providers + +------+ + | Care Survey Operations Director Name | Role | Phone [...] [place] | | | | | | [address] | | | | | | [phone] | | | +--------+ + + + [...] | Gastroenterology | Darni Gandhi | | 2019 | Visit | | MD Jacek [address] | | | | | | [place] | | | | | | [place] [address] | | | | | | [phone] | | | | | | | | +--------+---------+ + + + | 01/01/ | Office | Cardiology | Silvia, | | | 2019 | Visit | | PAR[place] [address] | | | | | | [place], | | | | | | [place] [address] | | | | | | [phone] | | | | | | | | +--------+---------+ + + + documented as of this encounter Visit Diagnoses Not on filedocumented in this encounter"
--- OUTSIDE RECORDS SUMMARY | ~2019-12-06 | XMS | Encounter Summary ---
Demographics + + + | Address | [address] | | | [place] [address] | + + + | Home Phone [...] Team Providers + +------+ + | Care Terrazzo Supervisor Name | Role | Phone | [...] + + | 07/13/ | Telephone | [facility] | Kirk French | Referral Question | | 2019 | | [facility] | MD Brea [address] | | | | | PRIMARY [facility] [address] | [address] | | | | | [address] | [place] [address] | | | | | [place], [place] | [phone] | | | | | [address] | | | | | | [phone] | | | +--------+ + + + [...] | | | | | [place] [address] | | | | | | [phone] | | | | | | | | +--------+---------+ + + + | 01/01/ | Office | Cardiology | [place]via, | | | 2019 | Visit | | PARISA [place] [address] | | | | | | [place] | | | | | | [place] [address] | | | | | | [phone] | | | | | | | | +--------+---------+ + + + documented as of this encounter Visit Diagnoses Not on filedocumented in this encounter"
--- OUTSIDE RECORDS SUMMARY | ~2019-12-06 | XMS | Encounter Summary ---
Demographics + + + | Address | [address] | | | [place] [address] | + + + | Home Phone [...] Providers + +------+ + | Care Commercial Management Accountant Name | Role | Phone | [...] | | CARDIOLOGY [address] | Janeen, SUPERVISOR ELECTRIC [address] | reading) | | | | [place], | [place], | | | | | [place] [address] | [place] [address] | | | | | [phone] | [phone] | | | | | | | [...] | | | | | [place] [address] | | | | | | [phone] | | | | | | | | +--------+---------+ + + + | 01/01/ | Office | Cardiology | [place], | | | 2019 | Visit | | PAR[place] [address] | | | | | | [place] | | | | | | [place] [address] | | | | | | [phone] | | | | | | | | +--------+---------+ + + + documented as of this encounter Visit Diagnoses Not on filedocumented in this encounter"
--- OUTSIDE RECORDS SUMMARY | ~2019-12-06 | XMS | Encounter Summary ---
Demographics + + + | Address | [address] | | | [place] [address] | + + + | Home Phone [...] Providers + +------+ + | Care Wood Window And Door Craftsman Name | Role | Phone | [...] + | 03/24/ | Telephone | [facility] | [place], | Other (chest pain) | | 2018 | | CARDIOLOGY [address] | [place] [address] | | | | | [place], | [place], | | | | | [place] [address] | [place] [address] | | | | | [phone] | [phone] | | | | | | | [...] | | | | | [place] [address] | | | | | | [phone] | | | | | | | | +--------+---------+ + + + | 01/01/ | Office | Cardiology | [place], | | | 2019 | Visit | | PAR[place] [address] | | | | | | [place] | | | | | | [place] [address] | | | | | | [phone] | | | | | | | | +--------+---------+ + + + documented as of this encounter Visit Diagnoses Not on filedocumented in this encounter"
--- OUTSIDE RECORDS SUMMARY | ~2019-12-06 | XMS | Encounter Summary ---
Demographics + + + | Address | [address] | | | [place] [address] | + + + | Home Phone [...] + +------+ + | Care Property Management Bookkeeper Name | Role | Phone | [...] | | | | [place] | | [address] Phone: | | | | | CYSTO/URETER | | [phone] | | | | | O | | Fax: | | | | | W/LITHOTRIPS | | [phone] | | | | | Y &INDWELL [...] + + | 04/13/ | Hospital | [facility] | Matthew Uriarte | Preoperative | | 2019 | Encounter | MED CTR OR INTRA OP | Dahl, MD [address] | clearance (Primary | | | | [address] | [address] [place] | Dx); Left ureteral | | | | [place] | [address] | calculus; Kidney | | | | [address] | | stones | | | | [phone] | | | +--------+ + + + [...] Care Everywhere.Kidney Stones, Treating: Ureteroscopic Stone Removal (Czech)Stents, Ureteral (Czech)documented in this encounter Medications at Time of [...] | | | | | | | akhiok coronary | | | | | | | artery of akhiok | | | | | | | heart without angina | | | | | | | pectoris, | | | | | | | Hyperlipidemia, | | | | | | | mixed | | | | | | + + + +---------+ + + | clonazePAM | Take 0.5 mg by mouth | | 0 | 09/17/20 | | | (KLONOPIN) 0.5 mg | [...] | | | | | [place] [address] | | | | | | [phone] | | | | | | | | +--------+---------+ + + + | 01/01/ | Office | Cardiology | [place]via, | | | 2019 | Visit | | PARISA [place] [address] | | | | | | [place] | | | | | | [place] [address] | | | | | | [phone] | | | | | | | [...] [facility] | | | | | | at:[phone]. | | | | + + + [...] [address], | REFERENCE LAB | | [place], [place] [id number] Car Refinisher: Yeny Rios MD, Phone: | ARSH CASTANON | | [phone] | | + + + + + + + + | Performing | Address | City/State/Zipcode | Phone Number | | Organization | | | | + + + + + | REFERENCE LAB | [address] | [place] [address] | [phone] | | [facility] | Drive [...] [address] | [place] | [phone] | | [facility] | | [address] | | | - LABORATORY | | [...] | | | | | | [facility] | | [...] ST. | [address] | [place], [place] | [phone] | | [facility] | | [address] | | | - LABORATORY | | [...] [address] | [place] | [phone] | | [facility] | | [address] | | | - LABORATORY | | [...] [address] | [place] | [phone] | | [facility] | | [address] | | | - LABORATORY | | [...] | 0.92 | 0.70 - 1.30 | [facility] | | | | | mg/dL | [facility] | | | | | | MEDICAL | | | | | | CENTER - | | | | | | LABORATORY | | + + + + + + | eGFR if not | >60Comment: GLOMERULAR | >=60 | [facility] | | | | FILTRATION | mL/min/1.73m2 | [facility] | | | ROMANIAN | RATE,ESTIMATED | | MEDICAL | | | | mL/min/1.42k8Vfoe than | | CENTER - | | [...] [address] | [place] | [phone] | | [facility] | | [address] | | | - LABORATORY | | [...] day), First | | | dose on [facility] 04/13/19 at 1400, | | | Start 8 hours after pre-op dose., | | | Post-op/Phase II | | + +---+ | | | + +---+ | albuterol 2.5 mg/3 mL nebulizer | | | solution 2.5 mg 2.5 mg, | | | Nebulization, ONCE PRN, Wheezing, | | | Starting [facility] 04/13/19 at 0917, | | | [...] HR < 40, | | | Starting [facility] 04/13/19 at 0917, For | | [...] | | | | | | | hkpsvq-ypm-tefzw use of at least | | | [...] Anxiety, or agitation, Starting | | | [facility] 04/13/19 at 0917, Maximum | | | [...]
--- OUTSIDE RECORDS SUMMARY | ~2019-12-06 | XMS | Encounter Summary ---
Demographics + + + | Address | [address] | | | [place] [address] | + + + | Home Phone [...] Providers + +------+ + | Care Teacher Advisor Name | Role | Phone | [...] | | CARDIOLOGY [address] | [address] | | | | | [place], | [place], | | | | | [place] [address] | [place] [address] | | | | | [phone] | [phone] | | | | | | | [...] | | | | | [place] [address] | | | | | | [phone] | | | | | | | | +--------+---------+ + + + | 01/01/ | Office | Cardiology | [place], | | | 2020 | Visit | | PARISA [place] [address] | | | | | | [place], | | | | | | [place] [address] | | | | | | [phone] | | | | | | | [...] + | [facility] | [address] | [place] | [phone] | | [facility] | | [address] | | | - LABORATORY | | | | + + + + + | [facility] | [address] | [place], [place] | | | [facility] | | [address] | | | - LABORATORY | | [...] YESSY GUTIERREZ. | | | | | [facility] | | | | | - LABORATORY | | | | + +---------+ + + documented in this encounter Visit Diagnoses Not on filedocumented in this encounter"
--- OUTSIDE RECORDS SUMMARY | ~2019-12-06 | XMS | Encounter Summary ---
Demographics + + + | Address | [address] | | | [place] [address] | + + + | Home Phone [...] Providers + +------+ + | Care Professional Security Officer Name | Role | Phone [...] CARDIOLOGY [address] | MD [address] [place] | Interrogation | | | | [place], | [place], | (Primary Dx); | | | | [place] [address] | [place] [address] | Pacemaker; | | | | [phone] | [phone] | Sinoatrial node | | | | [...] | | | | | [place] [address] | | | | | | [phone] | | | | | | | | +--------+---------+ + + + | 01/01/ | Office | Cardiology | [place], | | | 2019 | Visit | | PAR[place] [address] | | | | | | [place], | | | | | | [place] [address] | | | | | | [phone] | | | | | | | [...] remote PDF scanned into | | | Evalve for remote interrogation results. Data collected by Shabana Robledo | | | MONROE Laam Presenting rhythm: Sinus rhythm, atrial paced ventricular [...]
--- OUTSIDE RECORDS SUMMARY | ~2019-12-06 | XMS | Encounter Summary ---
Demographics + + + | Address | [address] | | | [place] [address] | + + + | Home Phone [...] Providers + +------+ + | Care Cost Manager Name | Role | Phone | [...] | 07/30/ | Telephone | [facility] | Michael Amanda, | Results | | 2013 | | [facility] [place] | DO [address] | | | | | [address] | [place] | | | | | [place] | [address] | | | | | [address] | | | | | | [phone] | | | +--------+ + + + [...] | | | | | | [place] [address] | | | | | | [phone] | | | | | | | | +--------+---------+ + + + | 01/01/ | Office | Cardiology | [place], | | | 2019 | Visit | | PARISA [place] [address] | | | | | | [place], | | | | | | [place] [address] | | | | | | [phone] | | | | | | | | +--------+---------+ + + + documented as of this encounter Visit Diagnoses Not on filedocumented in this encounter"
--- OUTSIDE RECORDS SUMMARY | ~2019-12-06 | XMS | Encounter Summary ---
Demographics + + + | Address | [address] | | | [place] [address] | + + + | Home Phone [...] Providers + +------+ + | Care Cruise Staff Member Name | Role | Phone | [...] | | | | CENTER [address] | [address] [place] | | | | | [place], [place] | [place] [address] | | | | | [address] | [phone] | | | | | [phone] | | | +--------+ + + + [...] sent through Care Everywhere.Diarrhea, Unkno wn Cause (Estonian)documented in this encounter Medications at Time of [...] + + + +---------+ + + | [place]-3 Fatty | CAPS, one capsule by | [...] | | | | | | | prairie [place] coronary | | | | | | | artery of [place] | | | | | | | [...] | | | | | | [place] [address] | | | | | | [phone] | | | | | | | | +--------+---------+ + + + | 01/01/ | Office | Cardiology | [place], | | | 2019 | Visit | | PARISA [place] [address] | | | | | | [place], | | | | | | [place] [address] | | | | | | [phone] | | | | | | | [...] W?MRN: | | | | | | [id number] | | | [id number] | | | riteri | | | [...] | | | St. | | | Diagonal | | | y | | | [...] | | | St. | | | Diagonal | | | y | | | [...] | | | St. | | | Diagonal | | | y H. | | [...] | | | St. | | | Diagonal | | | y H. | | [...] | | | M.D. | | | Insurance Adjuster | | | al | | | [...] | | | ent/60 | | | [id number] | | | [phone] | | | [...] [address] | [place] | [phone] | | [facility] | | [address] | | | - LABORATORY | | [...] | Top Tube | | | [facility] | | | | | [...] [address] | [place] | [phone] | | [facility] | | [address] | | | - LABORATORY | | [...] + | [facility] | [address] | [place] | [phone] | | [facility] | | [address] | | | - LABORATORY | | [...] ST. | [address] | [place], [place] | [phone] | | [facility] | | [address] | | | - LABORATORY | | [...] + | [facility] | [address] | [place] | [phone] | | [facility] | | [address] | | | - LABORATORY | | [...] 10 | 9 - 23 mg/dL | [facility] | | | | | | [facility] | | | | | | MEDICAL | | | | | | CENTER - | | | | | | LABORATORY | | + + + + + + | Creatinine | 0.96 | 0.70 - 1.30 | [facility] | | | | | mg/dL | [...] | [facility] | | | ITALIAN | RATE,ESTIMATED | | MEDICAL | | | | mL/min/[id number] than | | CENTER - | | [...] | | Protein | | | [facility] | | [...] [address] | [place] | [phone] | | [facility] | | [address] | | | - LABORATORY | | [...] [facility] | | | | | | [facility] | | | | | | [...] | [address] | [place] | [phone] | | [facility] | | [address] | | | - LABORATORY | | [...] - 1.030 | [facility] | | | [place] | | | [facility] | | [...] [address] | [place] | [phone] | | [facility] | | [id number] | | | - LABORATORY | | [...]
--- OUTSIDE RECORDS SUMMARY | ~2019-12-06 | XMS | Encounter Summary ---
Demographics + + + | Address | [address] | | | [place] [address] | + + + | Home Phone [...] Providers + +------+ + | Care Patient Admitting Clerk Name | Role | Phone | + +------+ + | Michael Amanda DO | PCP | | + +------+ + Reason for Visit + + + | Reason | Comments | + + + | Follow-up | One month with [facility] 12/25/13 | + + + | Chest Pain | | + + + Encounter Details +--------+---------+ + + + | Date | Type | Department | Care Team | Description | +--------+---------+ + + + | 01/29/ | Office | [facility] | Silvia, | Other chest pain | | 2013 | Visit | CARDIOLOGY [address] | [place] [address] | (Primary Dx); Chest | | | | Nursery [place], | [place], | pain; Coronary | | | | [place] [address] | [place] [address] | artery disease; | | | | [phone] | [phone] | Hyperlipidemia; | | | | | [...] last week to the emergency room at [facility] with a baljit st pain [...] needed for Chest pain. 25 tablet 12 [place]-3 Fatty Acids (SALMON OIL-1000 PO) CAPS, one [...] was seen on the emergency room at [facility] on 01/26/2014, he was ruled out A [...] pain. He is in class II of [place] 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 There are no [...] to go back in 3 days to [place] for an attempt of ablation under general [...] symptoms. He is in class II of [place] Heart Ass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 There are no [...] made to ensure accuracy; however, inadvertent computerized machine cutter errors may be pre sent. Electronically signed [...] | | | | | [place] [address] | | | | | | [phone] | | | | | | | | +--------+---------+ + + + | 01/01/ | Office | Cardiology | Silvia, | | | 2019 | Visit | | [place] [address] | | | | | | [place], | | | | | | [place] [address] | | | | | | [phone] | | | | | | | [...] shoshone-bannock or graft | + + | Hyperlipidemia Other and unspecified hyperlipidemia | + + | Symptomatic PVCs Other premature beats | + + | Hypertension Unspecified essential hypertension | + + documented in this encounter
--- OUTSIDE RECORDS SUMMARY | ~2019-12-06 | XMS | Encounter Summary ---
Demographics + + + | Address | [address] | | | [place] [address] | + + + | Home Phone [...] Team Providers + +------+ + | Care Meter And Service Line Inspector Name | Role | Phone | [...] 2019 | | GASTROENTEROLOGY | [address], [place] | | | | | [address] [place] | [address] [place], [place] | | | | | [address] [place], [place] | [address] | | | | | [address] | | | | | | [phone] | | | +--------+ + + + [...] | | | | | [place] [address] | | | | | | [phone] | | | | | | | | +--------+---------+ + + + | 01/01/ | Office | Cardiology | Silvia, | | | 2019 | Visit | | [place] [address] | | | | | | [place] | | | | | | [place] [address] | | | | | | [phone] | | | | | | | | +--------+---------+ + + + documented as of this encounter Visit Diagnoses Not on filedocumented in this encounter"
--- OUTSIDE RECORDS SUMMARY | ~2019-12-06 | XMS | Encounter Summary ---
Demographics + + + | Address | [address] | | | [place] [address] | + + + | Home Phone [...] + +------+ + | Care Mental Health Program Manager Name | Role | Phone | + +------+ + PCP | Unavailable | + +------+ + Encounter Details +--------+ + + + + | Date | Type | Department | Care Team | Description | +--------+ + + + + | 01/27/ | [facility] | [facility] | Jonathan, | | | 2008 | Encounter | MED CTR EMERGENCY | Martell Cr MD [address] | | | | | CENTER [address] | [place] | | | | | [place] | [place] [address] | | | | | [address] | [phone] | | | | | [phone] | | | +--------+ + + + [...] | | | | | [place], [place] [address] | | | | | | [phone] | | | | | | | | +--------+---------+ + + + | 01/01/ | Office | Cardiology | Silvia, | | | 2020 | Visit | | [place] [address] | | | | | | [place], | | | | | | [place] [address] | | | | | | [phone] | | | | | | | | +--------+---------+ + + + documented as of this encounter Visit Diagnoses Not on filedocumented in this encounter"
--- OUTSIDE RECORDS SUMMARY | ~2019-12-06 | XMS | Encounter Summary ---
Demographics + + + | Address | [address] | | | [place] [address] | + + + | Home Phone [...] Team Providers + +------+ + | Care Lug Loader Name | Role | Phone | [...] + + | 08/24/ | Office | [facility] | Silvia, | Ascending thoracic | | 2018 | Visit | CARDIOLOGY [address] | [place] [address] | aortic aneurysm | | | | [place], | [place], | ([facility]) (Primary Dx); | | | | [place] [address] | [place] [address] | Syncope, unspecified | | | | [phone] | [phone] | syncope type; | | | | | | Hypertension, | | | | | | unspecified type; | | | | | | Coronary artery | | | | | | disease involving | | | | | | afognak coronary | | | | | | artery of afognak | | | | | | heart [...] of non-critical coronary artery d isease involving afognak coronary artery of afogn[place] heart without angina pectoris, essential h ypertension, [...] Preventative health care Coronary artery disease involving afognak coronary artery of afognak heart without angina pectoris Cannabis abuse, daily [...] by mouth Daily. 90 tabl et 1 [facility] Natural Products (OSTEO BI-FLEX/5-LOXIN ADVANCED PO) Take [...] 3RD DOSE, CALL 911 100 tablet 3 [place]-3 Fatty Acids (SALMON OIL-1000 PO) [...] now present Confirmed by HIREN WINKLER, ANGELA ([id number]) on 07/28/2018 6:03:35 AM LAB RESULTS reviewed [...] PLTEX 157 04/11/2018 I reviewed records [facility] [...] to go back in 3 days to [place] for an attempt of ablation under general [...] He is in class II of the [place] Heart Association f unctional class. There are [...] subsided. 2. Non-critical Coronary artery disease involving afognak coronary artery of afognak heart [facility] angina pectoris: A. Normal exercise sestamibi [...] cannot completely be ruled out . D. [facility] 12/25/13, shows non critical coronary artery disease, [...] this chart may have been created with Babelway voice recognition software. Occasi onal wrong-word or [...] | | | | | | [place] [address] | | | | | | [phone] | | | | | | | | +--------+---------+ + + + | 01/01/ | Office | Cardiology | Silvia, | | | 2019 | Visit | | [place] [address] | | | | | | [place] | | | | | | [place] [address] | | | | | | [phone] | | | | | | | [...] + + | Coronary artery disease involving afognak coronary artery of afognak heart without | | angina pectoris | [...]
--- OUTSIDE RECORDS SUMMARY | ~2019-12-06 | XMS | Encounter Summary ---
Demographics + + + | Address | [address] | | | [place] [address] | + + + | Home Phone [...] Providers + +------+ + | Care Church Administrator Name | Role | Phone | [...] | | | | [place] | [address] | | | | | [address] | | | | | | [phone] | | | +--------+ + + + [...] | | | | | [place] [address] | | | | | | [phone] | | | | | | | | +--------+---------+ + + + | 01/01/ | Office | Cardiology | Silvia, | | | 2019 | Visit | | [place] [address] | | | | | | [place], | | | | | | [place] [address] | | | | | | [phone] | | | | | | | | +--------+---------+ + + + documented as of this encounter Visit Diagnoses Not on filedocumented in this encounter"
--- OUTSIDE RECORDS SUMMARY | ~2019-12-06 | XMS | Encounter Summary ---
Demographics + + + | Address | [address] | | | [place] [address] | + + + | Home Phone [...] Team Providers + +------+ + | Care Cd Manufacturing Supervisor Name | Role | Phone | [...] + | 06/02/ | Telephone | [facility] | Daljit Singletary, | Other (symptoms) | | 2019 | | CARDIOLOGY [address] | MD [address] [place] | | | | | [place], | [place], | | | | | [place] [address] | [place] [address] | | | | | [phone] | [phone] | | | | | | | [...] [address] | | | | | | [phone] | | | | | | | | +--------+---------+ + + + | 01/01/ | Office | Cardiology | Silvia, | | | 2019 | Visit | | [place] [address] | | | | | | [place] | | | | | | [place] [address] | | | | | | [phone] | | | | | | | | +--------+---------+ + + + documented as of this encounter Visit Diagnoses Not on filedocumented in this encounter"
--- OUTSIDE RECORDS SUMMARY | ~2019-12-06 | XMS | Encounter Summary ---
Demographics + + + | Address | [address] | | | [place] [address] | + + + | Home Phone [...] + +------+ + | Care Director Financial Systems Name | Role | Phone | [...] Provider Unknown | | | | | [place], [place] | [phone] | | | | | [address] | | | | | | [phone] | | | +--------+ + + + [...] + + + +---------+ + + | Parker-3 Fatty | CAPS, one capsule by | [...] | | | | | [place] [address] | | | | | | [phone] | | | | | | | | +--------+---------+ + + + | 01/01/ | Office | Cardiology | Silvia, | | | 2019 | Visit | | [place] [address] | | | | | | [place], | | | | | | [place] [address] | | | | | | [phone] | | | | | | | [...]
--- OUTSIDE RECORDS SUMMARY | ~2019-12-06 | XMS | Clinical Summary ---
Demographics + + + | Address | [address] | | | [place] [address] | + + + | Home Phone [...] Providers + +------+ + | Care Inspector Fibrous Wallboard Name | Role | Phone | + [...] | | + + + +---------+------+------+-------+ | Ada-3 Fatty | CAPS, one capsule by | [...] | | | | | | | [place] coronary | | | | | | | | artery of [place] | | | | | | | [...] + | Overview: Lower back injury (From [facility]) 1980 1984 | + + + [...] + + | Coronary artery disease involving [place] coronary artery of | 12/21/2013 | | [place] heart without angina pectoris | | + [...] attenuation cannot | | completely be ruled out.[facility] 12/25/13, shows non critical coronary | [...] | | CT Angiogram chest w/constrast 05/26/14 [facility] | + + + + [...] ventricular arrhythmia performed by Dr. Gambino at [facility] on 01/30/2013. Patient had spontaneous PVCs [...] back in 3 days to | | [place] for an attempt of ablation under general [...] IMPLANTED GENERATOR | | Medtronic DDD ADDR01 [id number] 06/14/09 RV LEAD Medtronic Active | | Bipolar CapSureFix 4076 [id number] 06/14/09 A LEAD Medtronic | | Active Bipolar CapSurFix 4076 [id number] 06/14/09 | + + + +---+ | [...] | Heart Cath, 02/29/2012, LVEF is 65%, [facility] | | [facility] Myocardial Gated Stress Test, 05/25/2009, EF 53 | | % during rest and 52% during stress. [facility], | | [place], [place] Sestamibi Stress Test, 06/14/2008, LVEF is | | 60%, [facility] 12/25/13, shows noncritical | | [...] Plan: Nonobstructive CAD noted | | on [facility] from 2013, no EKG changes, and [...] | | | | | | unspecified ([facility]); | | | | | | Mixed [...] + + | Mother | | | [place] | | | | (Age | | [...] | | | | | [place] [address] | | | | | | [phone] | | | | | | | | +--------+---------+ + + + | 01/01/ | Office | Cardiology | Silvia, | | | 2019 | Visit | | [place] [address] | | | | | | [place], | | | | | | [place] [address] | | | | | | [phone] | | | | | | | [...] Left: | CAMERON | | 09/27/ | [id number] | | - [id number]: | | Ureter | [employer] | | 2020 | / | | Qty: 1 on 04/13/2019 by | | | - [facility] | | | /[id number] | | Matthew Uriarte MD at | | | | | | 57 | | [facility] | | | | | | | | [facility] | | | | | | [...] remote PDF scanned into | | | [facility] for remote interrogation results. [...] +--------+ +---------+--------+ | MEDICARE | MEDICA | [id number] | 01/21/20 | [phone] | | Medica | | | RE | | 01-Pre | 5 | | re | | | PART A | | sent | | | | | | AND B | | | | | | + +--------+ +--------+ +---------+--------+ | MEDICARE | MEDICA | [id number] | 01/21/20 | [phone] | | Medica | | | RE | | 01-Pre | 5 | | re | | | PART A | | sent | | | | | | AND B | | | | | | + +--------+ +--------+ +---------+--------+ | AARP | AARP | [id number] | | [phone] | | Indemn | | | MDCR | | 016-Pr | 0 | | ity | | | SUPPL | | esent | | | | + +--------+ +--------+ +---------+--------+ | AARP | AARP | [id number] | 11/22/19 | [phone] | | Indemn [...] Person | Self | [birth year] | [address] | | Kirk | cristo/Per | | 1959 | [phone] | [place] | | | roxanne | | | 8 (Home) | [address] | + +--------+ +--------+ + + | Moe Sanchez | Person | Self | [birth year] | | [address] | | Kirk | al/Fam | | 1960 | [phone] | [place] | | | [place]xanne | | | 8 (Home) | [address] | + +--------+ +--------+ + + | Moe Sanchez | Dave | Self | [birth year] | [address] | | Kirk | Republican | | [phone] | [phone] | [address] [place] | | | lEy | | | 3 ([place]) | [address] | | | ity | | | | | + +--------+ +--------+ + + Advance Directives + + + + + | Type | Date Recorded | Patient | Explanation | | | | Land Sales Agent | | + + + + + | Power of | | | | | Evp Operations | | | | + + + [...]
--- OUTSIDE RECORDS SUMMARY | ~2019-12-06 | XMS | Encounter Summary ---
Demographics + + + | Address | [address] | | | [place] [address] | + + + | Home Phone [...] Team Providers + +------+ + | Care Small Business Sales Representative Name | Role | Phone | + +------+ + PCP | Unavailable | + +------+ + Encounter Details +--------+ + + + + | Date | Type | Department | Care Team | Description | +--------+ + + + + | 06/17/ | Hospital | [facility] | | | | 2008 | Encounter | MED CTR EMERGENCY | | | | | | [place] [address] | | | | | | [place] | | | | | | [address] | | | | | | [phone] | | | +--------+ + + + [...] | | | | | [place] [address] | | | | | | [phone] | | | | | | | | +--------+---------+ + + + | 01/01/ | Office | Cardiology | Silvia, | | | 2020 | Visit | | [place] [address] | | | | | | [place], | | | | | | [place] [address] | | | | | | [phone] | | | | | | | | +--------+---------+ + + + documented as of this encounter Visit Diagnoses Not on filedocumented in this encounter"
--- OUTSIDE RECORDS SUMMARY | ~2019-12-06 | XMS | Encounter Summary ---
Demographics + + + | Address | [address] | | | [place] [address] | + + + | Home Phone [...] Providers + +------+ + | Care Automobile Body Repairer Helper Name | Role | Phone [...] 2019 | | GASTROENTEROLOGY | [address], [place] | | | | | [address] [place] | [address] [place], [place] | | | | | [address] [place], [place] | [address] | | | | | [address] | | | | | | [phone] | | | +--------+--------+ + + + [...] | | | | | [place] [address] | | | | | | [phone] | | | | | | | | +--------+---------+ + + + | 01/01/ | Office | Cardiology | Silvia, | | | 2019 | Visit | | [place] [address] | | | | | | [place] | | | | | | [place] [address] | | | | | | [phone] | | | | | | | | +--------+---------+ + + + documented as of this encounter Visit Diagnoses Not on filedocumented in this encounter"
--- OUTSIDE RECORDS SUMMARY | ~2019-12-06 | XMS | Encounter Summary ---
Demographics + + + | Address | [address] [place] [address] [address] | | | [place] [address] | + + + | Home Phone [...] [place] | | | | | [address] | | + + + + + Care Team Providers + +------+ + | Care Relationship Management Lead Name | Role | Phone | [...] | | | | | [place] | [facility] | | | | | | [place], [place] | [place], [place] | | | | | | [address] | [address] | | | | | | Phone: | Phone: | | | | | | [phone] | [phone] | | | | | | Fax: | Fax: | | | | | | [phone] | [phone] | +--------+--------+ + + + + Encounter Details +--------+---------+ + + + | Date | Type | Department | Care Team | Description | +--------+---------+ + + + | 09/28/ | Office | Digestive Health | Bridgette Rios, | Chronic diarrhea | | 2019 | Visit | [facility] [address] | [address] | (Primary Dx); | | | | [address] | [place], [place] | Abdominal cramping; | | | | Mailcode: Gary | [address] | Unintentional weight | | | | for Health and | [phone] | loss | | | | [facility], [facility] | | | | | | [place], [place] | | | | | | [address] | | | | | | [phone] | | | +--------+---------+ + + + [...] some lab orders to [place] 2. accounting support specialist the nortryptiline and take 1 tablet each [...] different fr om the original. Gastroenterology Clinic [facility] ~ Initial Consultation / New Patient [...] inflammatory bowel disease. CT scan done through [facility] November show ed mild diverticulosis without [...] of Present Illness: Here with his from [place] for second opinion regarding severe abdominal cramps, isreal rrhea and weight loss following a GI illness contracted during a trip to [facility]. He reports that 2 years ago he was traveling in [facility] and he had some suspicious seafood. He develo ps profound bloody diarrhea with severe abdominal pain. He was hospitalized in [facility] and w as treated with IV hydration. [...] file Gets together: Not on file Attends druze service: Not on file Active member of [...] Plan and Recommendations: 1. [facility] in [place] for stool studies as outlined above 2. If negative and symptoms persist, recommend capsule endoscopy (this could be completed b y local superintendent of generation or he could return to [place] for this test) 3. Nortryptiline 25mg q HS with instruction to titrate to 50mg q HS after 2 weeks if tolera kevin Follow-Up: with local superintendent of generation Counseling Time: I spent a total of 35 minutes with this patient, of which greater than 50 % of the time was spent in counseling. Specific issues that were discussed included a revie w of the disease, diagnostic tools that help in our management plans for the patient's chron ic diarrhea, abdominal cramping and weight loss and goals for treatment. Bridgette Rios MD Computer Trainer Gastroenterology documented in this e ncounter Plan [...]
--- OUTSIDE RECORDS SUMMARY | ~2019-12-06 | XMS | Encounter Summary ---
Demographics + + + | Address | [address] | | | [place] [address] | + + + | Home Phone [...] Providers + +------+ + | Care Coin Teller Name | Role | Phone | [...] + | 07/12/ | Office | [facility] | Michael Amanda, | Preventative health | | 2013 | Visit | [facility] [place] | DO [address] | care (Primary Dx); | | | | [address] | [place], [place] | Prostate cancer | | | | [place], [place] | [address] | screening; | | | | [address] | | Hypercholesterolemia | | | | [phone] | | ; Hypertension; | | | [...] changes. He was se en by Dr. oHlm. No clear cause was found. He has seen round corner cutter operator and has a rechec k plan. Possible [...] | | | | | | [place] [address] | | | | | | [phone] | | | | | | | | +--------+---------+ + + + | 01/01/ | Office | Cardiology | Silvia, | | | 2019 | Visit | | [place] [address] | | | | | | [place], | | | | | | [place] [address] | | | | | | [phone] | | | | | | | [...] Primary Routine general medical [facility] at [facility] | | care facility | + [...]
--- OUTSIDE RECORDS SUMMARY | ~2019-12-06 | XMS | Encounter Summary ---
Demographics + + + | Address | [address] | | | [place] [address] | + + + | Home Phone [...] Team Providers + +------+ + | Care On Air Talent Name | Role | Phone | + [...] W | reprogramming/check | | | | [place], | [address] [place] | DO NOT DELETE | | | | [place] [address] | [place] [address] | (Primary Dx); | | | | [phone] | [phone] | Pacemaker - | | | | [...] | | | | | [place] [address] | | | | | | [phone] | | | | | | | | +--------+---------+ + + + | 01/01/ | Office | Cardiology | Silvia, | | | 2019 | Visit | | [place] [address] | | | | | | [place] | | | | | | [place] [address] | | | | | | [phone] | | | | | | | [...]
--- OUTSIDE RECORDS SUMMARY | ~2019-12-06 | XMS | Encounter Summary ---
Demographics + + + | Address | [address] | | | [place] [address] | + + + | Home Phone [...] Team Providers + +------+ + | Care Liquor Maker Name | Role | Phone | [...] R[address] | | | | | [place], [place] | [address] | | | | | [address] | [place] [address] | | | | | [phone] | [phone] | | | | | | | [...] | | | | | | [place] [address] | | | | | | [phone] | | | | | | | | +--------+---------+ + + + | 01/01/ | Office | Cardiology | Silvia, | | | 2019 | Visit | | [place] [address] | | | | | | [place], | | | | | | [place] [address] | | | | | | [phone] | | | | | | | [...] | | | Basophils | performed at [facility];[address] | 10*3/uL | LAB | | | | [address] | | | | | | [address];[place] [address] | | | | + + + [...] | | | | | Blvd;[place] [address] | | | | + + + [...] | | | | | | at [facility];[address] | | | | | | [place] | | | | | | [address] | | | | + + + [...]
--- OUTSIDE RECORDS SUMMARY | ~2019-12-06 | XMS | Encounter Summary ---
Demographics + + + | Address | [address] | | | [place] [address] | + + + | Home Phone [...] Providers + +------+ + | Care Advanced Practice Professional Name | Role | Phone | [...] | | | pain | [address] | [address] | | | | | Procedures | St [place] | [place], | | | | | [place] Nuclear | [place] | [place] | | | | | Stress Test | [address] | [address] | | | | | (Vasodilator | Phone: | Phone: | | | | | ) CHG | [phone] | [phone] | | | | | MYOCARDIAL | Fax: | Fax: | | | | | SPECT | [phone] | [phone] | | | | | MULTIPLE | | | | | | | STUDIES | | | +--------+--------+ + + + + Encounter Details +--------+ + + + + | Date | Type | Department | Care Team | Description | +--------+ + + + + | 12/06/ | Hospital | [facility] | Geri Angel, | Other chest pain | | 2013 | Encounter | MED CTR XRAY [address] | ENGINE TEST CELL TECHNICIAN [address] | | | | | [place] | [place] | | | | | [place] [address] | [address] | | | | | [phone] | | | +--------+ + + + [...] + + + +---------+ + + | [place]-3 Fatty | CAPS, one capsule by | [...] | | | | | [place] [address] | | | | | | [phone] | | | | | | | | +--------+---------+ + + + | 01/01/ | Office | Cardiology | [place]via, | | | 2019 | Visit | | PARISA Vernon [address] | | | | | | [place] | | | | | | [place] [address] | | | | | | [phone] | | | | | | | [...] Performed At | + + + | [facility] | [place] | | Department [address] [facility] | [facility] | | [ rep [address]] [ rep [facility] | | st zip] Signed | - IMAGING | | | | | Patient Name: MOE GAY | | | Physician: JACKLYN : 1960 Age: 53 Sex: M Unit | | | #: [id number] Exam Date: 12/06/13 [place]: | | | [facility] [place] #: [id number] Page: | | | %(RAD)RES..mtdd.print.filter("pg") of %(RAD) | | | RES..mtdd.print.filter("tpg") | | | | | | Accession Number: [id number] | | | PERSANTINE SESTAMIBI STRESS TEST, [...] Transcribed Date/Time: 12/07/2013 08:18 | | | Cinder Crew Worker: <<Signature on File>> | | | | | | Daljit Singletary MD [facility] FAS12/07/13 1321 <Electronically signed | | | by Daljit Singletary MD, [facility], FACP, FASE, FASNC> Daljit | | | MD [facility] 12/07/13 0701 Cinder Crew Worker: Jessica | | | Rxwbaodkukoog64/16/14 0818 PARISA Garcia | | + + + + + + + + | Performing | Address | City/State/Zipcode | Phone Number | | Organization | | | | + + + + + | [facility] | [address] | [place] | [phone] | | [facility] | | [address] | | | - IMAGING | | | | + + + + + documented in this encounter Visit Diagnoses + + | Diagnosis | + + | Other chest pain | + + documented in this encounter
--- OUTSIDE RECORDS SUMMARY | ~2019-12-06 | XMS | Encounter Summary ---
Demographics + + + | Address | [address] | | | [place] [address] | + + + | Home Phone [...] Team Providers + +------+ + | Care Replanter Name | Role | Phone | + [...] | | | | [place] | [address] | | | | | [address] | | | | | | [phone] | | | +--------+ + + + [...] | | | | | [place] [address] | | | | | | [phone] | | | | | | | | +--------+---------+ + + + | 01/01/ | Office | Cardiology | Silvia, | | | 2019 | Visit | | PARISA Vernon [address] | | | | | | [place], | | | | | | [place] [address] | | | | | | [phone] | | | | | | | | +--------+---------+ + + + documented as of this encounter Visit Diagnoses Not on filedocumented in this encounter"
--- OUTSIDE RECORDS SUMMARY | ~2019-12-06 | XMS | Encounter Summary ---
Demographics + + + | Address | [address] | | | [place] [address] | + + + | Home Phone [...] Providers + +------+ + | Care Outreach Associate Name | Role | Phone | + +------+ + PCP | Unavailable | + +------+ + Encounter Details +--------+ + + + + | Date | Type | Department | Care Team | Description | +--------+ + + + + | 12/01/ | Hospital | [facility] | | | | 1997 | Encounter | MED CTR EMERGENCY | | | | | | CENTER [address] | | | | | | [place] | | | | | | [address] | | | | | | [phone] | | | +--------+ + + + [...] | | | | | [place] [address] | | | | | | [phone] | | | | | | | | +--------+---------+ + + + | 01/01/ | Office | Cardiology | Silvia, | | | 2020 | Visit | | PARISA Vernon [address] | | | | | | [place], | | | | | | [place] [address] | | | | | | [phone] | | | | | | | | +--------+---------+ + + + documented as of this encounter Visit Diagnoses Not on filedocumented in this encounter"
--- OUTSIDE RECORDS SUMMARY | ~2019-12-06 | XMS | Encounter Summary ---
Demographics + + + | Address | [address] | | | [place] [address] | + + + | Home Phone [...] Team Providers + +------+ + | Care Utilities Operator Name | Role | Phone | [...] + + | 06/18/ | Emergency | [facility] | Dom Graham, | Cervical pain (neck) | | 2013 | | MED CTR EMERGENCY | MD [address] | (Primary Dx); | | | | CENTER [address] | [place] | Paresthesia and pain | | | | [place], [place] | [address] | of both upper | | | | [address] | | extremities | | | | [phone] | | | +--------+ + + + [...] cannot be sent through Care Everywhere.PARAESTHESIAS ( SWEDISH)NECK SPRAIN/STRAIN (SWEDISH)documented in this encounter Medications at Time of [...] | | | | | [place] [address] | | | | | | [phone] | | | | | | | | +--------+---------+ + + + | 01/01/ | Office | Cardiology | Silvia, | | | 2019 | Visit | | PARISA Vernon [address] | | | | | | [place] | | | | | | [place] [address] | | | | | | [phone] | | | | | | | [...] + | MISCELLANEOUS LAB | | | [phone] | + +---------+ + + | MISCELANIOUS LAB | | | [phone] | + +---------+ + + documented in this encounter Visit Diagnoses + + | Diagnosis | + + | Cervical pain (neck) - Primary Cervicalgia | + + | Paresthesia and pain of both upper extremities Disturbance of skin sensation | + + documented in this encounter
--- OUTSIDE RECORDS SUMMARY | ~2019-12-06 | XMS | Encounter Summary ---
Demographics + + + | Address | [address] | | | [place] [address] | + + + | Home Phone [...] + + | 05/14/ | Office | [facility] | Silvia, | Coronary artery | | 2013 | Visit | CARDIOLOGY [address] | PARISA Vernon [address] | disease (Primary | | | | [place], | [place], | Dx); Hypertension; | | | | [place] [address] | [place] [address] | Hyperlipidemia; | | | | [phone] | [phone] | Syncope; Other chest | | | [...] needed for Chest pain. 25 tablet 12 [place]-3 Fatty Acids (SALMON OIL-1000 PO) CAPS, one [...] attenuation cannot completely be ruled out. [facility] 12/25/13, shows noncritical coronary artery disease, [...] to go back in 3 days to [place] for an attempt of ablation under general [...] bring in his blood pressure logs from [facility] 5. Lightheadedness and dizziness/ presyncope: A. [...] to ensure accuracy; however, inadvertent computerized production superintendent errors may be pre sent. Electronically signed [...] | | | | | | [place] [address] | | | | | | [phone] | | | | | | | | +--------+---------+ + + + | 01/01/ | Office | Cardiology | Silvia, | | | 2019 | Visit | | PARISA Vernon [address] | | | | | | [place], | | | | | | [place] [address] | | | | | | [phone] | | | | | | | [...] of unspecified type of | | vessel, [place] or graft | + + | Hypertension Unspecified essential hypertension | + + | Hyperlipidemia Other and unspecified hyperlipidemia | + + | Syncope Syncope and collapse | + + | Other chest pain | + + | Chest pain Chest pain, unspecified | + + documented in this encounter
--- OUTSIDE RECORDS SUMMARY | ~2019-12-06 | XMS | Encounter Summary ---
Demographics + + + | Address | [address] | | | [place] [address] | + + + | Home Phone [...] Team Providers + +------+ + | Care Blast Furnace Tender Name | Role | Phone | [...] + | 02/21/ | Office | [facility] | Silvia, | Coronary artery | | 2019 | Visit | CARDIOLOGY [address] | PARISA [place] [address] | disease involving | | | | [place], | [place], | [place] coronary | | | | [place] [address] | [place] [address] | artery of [place] | | | | [phone] | [phone] | heart without angina | | | [...] of this encounter Patient Instructions Patient Instructions aJneen Vega ARNP - 02/21/2019 8:30 AM PDT1. [...] of non-critical coronary artery d isease involving [place] coronary artery of [place] heart without angina pectoris, essential h [...] stay active. He enjoys hunting in his [employer] t sher[place]. He has not had any [...] Preventative health care Coronary artery disease involving [place] coronary artery of [place] heart without angina pectoris Cannabis abuse, [...] 3RD DOSE, CALL 911 100 tablet 3 [place]-3 Fatty Acids (SALMON OIL-1000 PO) CAPS, one [...] was found Confirmed by ANGELA MARADIAGA MD ([id number]) on 01/03/2019 8:10:39 PM LAB RESULTS reviewed during visit today primarily from [facility]: LIPID Lab Results Component Value [...] BNP 15 01/02/2019 I reviewed records from [facility] for angiogram results on 019 which is summarized in the HPI. RESULTS- I reviewed reports from [facility]: No results found. Left heart [...] ASSESSMENT: 1. Non-critical Coronary artery disease involving [place] coronary artery of [place] heart [facility] angina pectoris: A.Normal exercise sestamibi [...] Symptoms with moderate exertion of t he [place] 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 Heart failure stage [...] presyncope [facility] thought to have vasovagal symptoms. B. Today, [...] this chart may have been created with [employer] voice recognition software. Occasi onal wrong-word or [...] | | | | | [place] [address] | | | | | | [phone] | | | | | | | | +--------+---------+ + + + | 01/01/ | Office | Cardiology | Silvia, | | | 2019 | Visit | | PARISA Vernon [address] | | | | | | [place], | | | | | | [place] [address] | | | | | | [phone] | | | | | | | | +--------+---------+ + + + documented as of this encounter Visit Diagnoses + + | Diagnosis | + + | Coronary artery disease involving [place] coronary artery of [place] heart without | | angina pectoris - Primary | + + | Symptomatic PVCs Other premature beats | + + | Essential hypertension Unspecified essential hypertension | + + documented in this encounter
--- OUTSIDE RECORDS SUMMARY | ~2019-12-06 | XMS | Encounter Summary ---
Demographics + + + | Address | [address] | | | [place] [address] | + + + | Home Phone [...] Team Providers + +------+ + | Care Telemetry Registered Nurse Name | Role | Phone | [...] Eva ROUSE | | | | | [place], [place] | [address] | | | | | [address] | [place] [address] | | | | | [phone] | [phone] | | | | | | | [...] | | | | | [place] [address] | | | | | | [phone] | | | | | | | | +--------+---------+ + + + | 01/01/ | Office | Cardiology | [place]via, | | | 2019 | Visit | | PARISA Vernon [address] | | | | | | [place], | | | | | | [place] [address] | | | | | | [phone] | | | | | | | [...]
--- OUTSIDE RECORDS SUMMARY | ~2019-12-06 | XMS | Encounter Summary ---
Demographics + + + | Address | [address] | | | [place] [address] | + + + | Home Phone [...] Providers + +------+ + | Care Bilingual Customer Service Specialist Name | Role | [...] CTR MP INTRA OP | [address], [place] | (Primary Dx); Weight | | | | [address] | [address] [place], [place] | loss | | | | [place], [place] | [address] | | | | | [address] | | | | | | [phone] | | | +--------+ + + + [...] for a few hours. Date Last Reviewed: 09/22/201619990418-8691 [employer]. [address] [place] [address], [place] [address]. All righ ts reserved. This information is [...] vomiting, or vomiting blood Date Last Reviewed: 05/22/201619994089-6561 [employer]. [address] [place] [address]. All [facility] ts reserved. This information is not [...] You can't be awakened Date Last Reviewed: 09/08/201619995681-7832 [employer]. [address] [place] [address], [place] [address]. All righ ts reserved. This information is [...] | | | | | [place] [address] | | | | | | [phone] | | | | | | | | +--------+---------+ + + + | 01/01/ | Office | Cardiology | Silvia, | | | 2019 | Visit | | PARISA Vernon [address] | | | | | | [place], | | | | | | [place] [address] | | | | | | [phone] | | | | | | | [...] + | Performed at: 01 - [facility] [place] [address], | REFERENCE LAB | | [place] [id number] Teletype Installer: Miguel Glaarza MD, Phone: | [facility] | | [phone] | | + + + + + + + + | Performing | Address | City/State/Zipcode | Phone Number | | Organization | | | | + + + + + | REFERENCE LAB | [address] | [place] [address] | [phone] | | [facility] | Drive [...] [address], | REFERENCE LAB | | [place], [place] [id number] Teletype Installer: Miguel Galarza MD, Phone: | [facility] | | [phone] | | + + + + + + + + | Performing | Address | City/State/Zipcode | Phone Number | | Organization | | | | + + + + + | REFERENCE LAB | [address] | [place] [address] | [phone] | | [facility] | Drive [...] [address] | [place] | [phone] | | [facility] | | [address] | | | - LABORATORY | | [...] [address] | [place] | [phone] | | [facility] | | [address] | | | - LABORATORY | | [...] | | dium | | | [facility] | | | Antigen | | [...] [address] | [place] | [phone] | | [facility] | | [address] | | | - LABORATORY | | [...] + | [facility] | [address] | [place] | [phone] | | [facility] | | [address] | | | - LABORATORY | | [...] | er, NAAT | | | [facility] | | | | | | [...] [address] | [place] | [phone] | | [facility] | | [address] | | | - LABORATORY | | [...] + | [facility] | [address] | [place] | [phone] | | [facility] | | [address] | | | - LABORATORY | | | | + + + + + EGD (01/05/2019 8:36 AM PST) + + | Specimen | + + | | + + + + -+ | Narrative | Performed At | + + -+ | | [facility] | | GastroenterologyPatient Name: Moe Venegas Date: | PROVATION | | 01/05/2019 8:36 AMMRN: [id number] #: [id number] of : | | | 9Admit Type: AmbulatoryAge: 58Room: [facility] 01Gender: MaleNote | | | Status: FinalizedAttending MD: Emmanuel Daniel , MDProcedure: | | | Upper GI endoscopyIndications: Diarrhea, Weight | | | lossProviders: Emmanuel Daniel MD, Heidi Mixon [place], | | | RN, Kim Hicks, Household Appliance Assembler, | | | Jarett Barakat MD (Anesthesia [...] physician, the nurse, the anesthesiologist and the chemical treatment plant technician | | | in the endoscopy [...] | | Imaging was performed using the MD.Voice Intelligent Chromo | | | Endoscopy (FICE) [...] Scope In: 8:43:57 AMScope Out: 8:49:[address] [facility]. | | | [facility], [address] [place] [address] | | | [phone] | | |Recommendation: | | | - [...] |Scope Out: 8:49:50 AM | | | [facility]. [facility], [address] [place] [address] | | | [address] | | + + -+ + +---------+ [...] | PROVATION | | 01/05/2019 8:36 AMMRN: [id number] #: [id number] of : | | | 9Admit Type: AmbulatoryAge: 58Room: [facility] 01Gender: MaleNote | | | Status: FinalizedAttending MD: Emmanuel Daniel [facility]: | | | ColonoscopyIndications: Clinically significant diarrhea of | | | unexplained origin, Weight lossProviders: | | | Emmanuel Daniel MD, Heidi An RN, Lindsey | | | Fiorella Hicks, Household Appliance Assembler, Jarett Quezada. | | | MD Roshni [...] | | | the anesthesiologist and the chemical treatment plant technician in the endoscopy suite. | | [...] AMScope Out: | | | 9:06:28 AM [facility], [address] [facility], | | | [place] [address] | | | - Discharge patient to [...] |Scope Out: 9:06:28 AM | | | [facility], [address] [place], [place] | | | [address] | | + + -+ + +---------+ [...] | | | (atherosclerotic heart disease of [place] coronary artery without | | | angina [...] A. The | | | specimen, labeled "[place], duodenal biopsy" is received in formalin | | | and consists of seven 0.1-0.5 cm lin fragments. Entirely submitted in | | | (A1). B. The specimen, labeled "[place], right colon" is received | | | in formalin and consists of six 0.2-0.3 cm lin fragments. Entirely | | | submitted in (B1). C. The specimen, labeled "[place], left colon" | | | is received in formalin and consists of six 0.2-0.3 cm lin-pink | | | fragments. Entirely submitted in (C1). am:AMB:portillo PERFORMING | | | LABORATORY: The technical component was performed by [employer] | | | [place] [address] (Tube Operator: | | | Kailey Stafford MD; CLIA# [id number]). Professional interpretation was | | | performed by [place] [address] | | | [place] [address] (Tube Operator: Ishaan | | | Anthony Dao; CLIA#: [id number]). Diagnostician: Ishaan Fitzpatrick | | | Sylwia [...]
--- OUTSIDE RECORDS SUMMARY | ~2019-12-06 | XMS | Encounter Summary ---
Demographics + + + | Address | [address] [place] [address] [address] | | | [place] [address] | + + + | Home Phone [...] [place] | | | | | [address] | | + + + + + Care Team Providers + +------+ + | Care System Administrator Name | Role | Phone [...] | | [facility] | | | | [place], [place] | | | | | | [address] | | | | | | [phone] | | | +--------+------+ + + + [...] Way Lab) | [facility] | | [facility] [place] [address] | REGIONAL | | [place] [address] | LABORATORY | + + + + + + + + | Performing | Address | City/State/Zipcode | Phone Number | | Organization | | | | + + + + + | [facility] | [address] | [place] [address] | | | LABORATORY | | | [...] ([address] [facility]) | | | [facility] [address] | | | [place] [address] | | + + + + + + + + | Performing | Address | City/State/Zipcode | Phone Number | | Organization | | | | + + + + + | [facility] | [address] | [place] [address] | | | LABORATORY | | | [...] | | | DEPARTMENT | | | [facility] | | | OF | | | [...] DEPARTMENT OF | [address] | [place] [address] | | | PATHOLOGY | [address] | | | + + + + + documented in this encounter Visit Diagnoses + + | Diagnosis | + + | Chest pain Chest pain, unspecified | + + | Bradycardia Other specified cardiac dysrhythmias | + + documented in this encounter"
--- OUTSIDE RECORDS SUMMARY | ~2019-12-06 | XMS | Encounter Summary ---
Demographics + + + | Address | [address] | | | [place] [address] | + + + | Home Phone [...] Providers + +------+ + | Care Regulatory Leader Name | Role | Phone | + +------+ + PCP | Unavailable | + +------+ + Encounter Details +--------+ + + + + | Date | Type | Department | Care Team | Description | +--------+ + + + + | 09/29/ | Hospital | [facility] | | | | 1995 | Encounter | MED CTR EMERGENCY | | | | | | [place] [address] | | | | | | [place] | | | | | | [address] | | | | | | [phone] | | | +--------+ + + + [...] | | | | | [place] [address] | | | | | | [phone] | | | | | | | | +--------+---------+ + + + | 01/01/ | Office | Cardiology | Silvia, | | | 2020 | Visit | | PARISA Vernon [address] | | | | | | [place], | | | | | | [place] [address] | | | | | | [phone] | | | | | | | | +--------+---------+ + + + documented as of this encounter Visit Diagnoses Not on filedocumented in this encounter"
--- OUTSIDE RECORDS SUMMARY | ~2019-12-06 | XMS | Encounter Summary ---
Demographics + + + | Address | [address] | | | [place] [address] | + + + | Home Phone [...] Providers + +------+ + | Care Senior Javascript Engineer Name | Role | Phone | [...] | | | | aortic | Janeen, INDIAN BLANKET WEAVER | [place], | | | | | aneurysm | [address] | [place] [address] | | | | | (HCC) | [place] | Phone: | | | | | Abdominal | [place], | [phone] | | | | | aortic | [place] | Fax: | | | | | aneurysm | [address] | [phone] | | | | | (AAA) | Phone: | | | | | | without | [phone] | | | | | | rupture | Fax: | | | | | | (HCC) | [phone] | | | | | | Procedures [...] | | unspecified | MD Martell | [address] [place] [address] | | | | | type ER | [address] | [place] [address] | | | | | FUP | [place] | [place], | | | | | Procedures | [place], [place] | [place] [address] | | | | | FUP - SUW & | [address] | Phone: | | | | | MISHA PT, LAST | Phone: | [phone] | | | | | SEEN | [phone] | Fax: | | | | | 08-24-18 | Fax: | [phone] | | | | | | [phone] | | +--------+ + + + + + Encounter Details +--------+---------+ + + + | Date | Type | Department | Care Team | Description | +--------+---------+ + + + | 01/11/ | Office | [facility] | [place], | Coronary artery | | 2019 | Visit | CARDIOLOGY [address] | [place] [address] | disease involving | | | | [place], | [place], | q[place] t[place]ungin coronary | | | | [place] [address] | [place] [address] | artery of q[place] t[place] | | | | [phone] | [phone] | heart without angina | | | [...] encounter Patient Instructions Patient Instructions Christine Rodriguez, Hall Supervisor - 01/11/2019 12:45 PM PST 1. You [...] Check-in time: 1. Check in at the [facility]. 2. Do not [...] procedure. 6. Make sure you have a drop hammer pile driver operator to take you home. Your drop hammer pile driver operator will also need to sign you ou [...] hospital line at and ask for nursing telephone order supervisor t o let them know you are cancelling . Blood test: Non-fasting Date Due: same day as CTA Where to go for labs: [facility]- [address] [facility] CTA of Chest and Abdomen: Date: [...] of non-critical coronary artery d isease involving qagan t[place]agungin coronary artery of [place] heart without angina pectoris, essential h ypertension, [...] Preventative health care Coronary artery disease involving qagan tayagung[place] coronary artery of qagan [place]ung[place] heart without angina pectoris Cannabis abuse, daily [...] 3RD DOSE, CALL 911 100 tablet 3 [place]-3 Fatty Acids (SALMON OIL-1000 PO) CAPS, one capsule by mouth daily twice daily ondansetron (ZOFRAN ODT) 4 mg disintegrating tablet Take 4 mg by mouth. ONE TOUCH DELICA LANCETS [facility] [...] was found Confirmed by ANGELA MARADIAGA MD ([id number]) on 01/03/2019 8:10:39 PM LAB RESULTS reviewed [...] HPI. RESULTS- I reviewed reports from [facility]: Xr Chest Ap Portable Result Date: [...] ASSESSMENT: 1. Non-critical Coronary artery disease involving qagan tayagungin coronary artery of qagan [place] heart wi out angina pectoris: A. Normal [...] Symptoms with moderate exertion of t he [place] Heart Ass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 Heart failure stage [...] [facility] Patient had spontaneous PVC's [...] go back in 3 days t o [place] for an attempt of ablation under general [...] he has any further problems Christine Clemente Hall Supervisor am acting as a scribe on behalf of, and in the pres ence of PARISA Lomas. - Reji Newman 01/11/2019 13:46 IJaneen ARNP, personally performed the services described in this documentati on, as scribed in my presence and it is both accurate and complete. -PARISA Lomas 01/11/2019 Portions of this chart may have been created with [employer] voice recognition software. Occasi onal wrong-word or [...] | | | | | | [place] [address] | | | | | | [phone] | | | | | | | | +--------+---------+ + + + | 01/01/ | Office | Cardiology | Silvia, | | | 2019 | Visit | | PAR[place] [address] | | | | | | [place], | | | | | | [place] [address] | | | | | | [phone] | | | | | | | [...]
--- OUTSIDE RECORDS SUMMARY | ~2019-12-06 | XMS | Encounter Summary ---
Demographics + + + | Address | [address] | | | [place] [address] | + + + | Home Phone [...] Providers + +------+ + | Care Deputy Fire Marshal Name | Role | Phone | + [...] + + | 10/01/ | Office | [facility] | Mary Bradshaw | Injury of left foot, | | 2013 | Visit | CARE [address] | Guy Larkin MD | initial encounter | | | | [place] | [address] | (Primary Dx) | | | | [address] | [place] | | | | | [phone] | [address] | | | | | | | [...] half hours. He states he needs to moss picker hi s spouse. I provided patient with Dr. Bradley's card so he may contact us for results. Patient's best phone number: [phone] Renetta Lockwood RN ary Bradshaw MD - [...] | | | | | | [place] [address] | | | | | | [phone] | | | | | | | | +--------+---------+ + + + | 01/01/ | Office | Cardiology | Silvia, | | | 2019 | Visit | | PAR[place] [address] | | | | | | [place], | | | | | | [place] [address] | | | | | | [phone] | | | | | | | [...] | | | |Dictated and Signed by: aRngel Gibson MD | | Electronically signed: 10/01/2014 5:05 PM | + + + +---------+ + + | Performing | Address | City/State/Zipcode | Phone Number | | Organization | | | | + +---------+ + + | [facility] | | | [phone] | + +---------+ + + | [facility] | | | [phone] | + +---------+ + + documented in this encounter Visit Diagnoses + + | Diagnosis | + + | Injury of left foot, initial encounter - Primary | + + documented in this encounter
--- OUTSIDE RECORDS SUMMARY | ~2019-12-06 | XMS | Encounter Summary ---
Demographics + + + | Address | [address] | | | [place] [address] | + + + | Home Phone [...] Providers + +------+ + | Care Asset Analyst Name | Role | Phone | [...] + + | 05/15/ | Office | [facility] | Matthew Uriarte | Kidney stones | | 2019 | Visit | [address] | MD Tawanna [address] | (Primary Dx) | | | | [place] | [place]VE [place] | | | | | [address] | [address] | | | | | [phone] | | | +--------+---------+ + + + [...] documented as of this encounter Progress Notes Mattehw Uriarte MD - 05/15/2019 9:45 AM PDTFormatting [...] CV LHC; Surgeon: Daljit Singletary MD; Location: [facility] CV LAB CARDIAC CATHERIZATION N/A 01/25/2019 Procedure: CV Cor Angio; Surgeon: Daljit Singletary MD; Location: [facility] CV LAB COLONOSCOPY N/A 12/24/2017 Procedure: COLONOSCOPY; Surgeon: Emmanuel Daniel MD; Location: [facility] MEDICAL PROCEDURE UNIT COLONOSCOPY N/A 01/05/2019 Procedure: COLONOSCOPY; Surgeon: Emmanuel Daniel MD; Location: [facility] MEDICAL PROCEDURE UNIT EGD 12/24/2017 [...] Procedure: EGD; Surgeon: Emmanuel Daniel MD; Location: [facility] MEDICAL PROCEDURE UNIT UPPER GASTROINTESTINAL ENDOSCOPY N/A 01/05/2019 Procedure: EGD; Surgeon: Emmanuel Daniel MD; Location: [facility] MEDICAL PROCEDURE UNIT URETEROSCOPY Left 04/13/2019 Procedure: Cystoscopy, Left ureteroscopy with laser lithotripsy, Left ureteral stent place ment; Surgeon: Matthew Uriarte MD; Location: [facility] MAIN OR VASECTOMY Family History: Family [...] 911, Disp: 100 ta blet, Rfl: 3 Mobile-3 Fatty Acids (SALMON OIL-1000 PO), CAPS, one [...] pH, Urine 8.0 5.0 - 8.0 Specific [place] 1.008 1.001 - 1.030 Protein, Urine Negative [...] have not thoroughly proofread this note, and energy broker errors are very likely to occur. CC: [...] | | | | | [place] [address] | | | | | | [phone] | | | | | | | | +--------+---------+ + + + | 01/01/ | Office | Cardiology | Silvia, | | | 2019 | Visit | | PARISA [place] [address] | | | | | | [place], | | | | | | [place] [address] | | | | | | [phone] | | | | | | | [...]
--- OUTSIDE RECORDS SUMMARY | ~2019-12-06 | XMS | Encounter Summary ---
Demographics + + + | Address | [address] | | | [place] [address] | + + + | Home Phone [...] Providers + +------+ + | Care Safety Spec Name | Role | Phone | [...] | | | | CENTER [address] | [address] | | | | | [place] | [place] | | | | | [address] | [address] | | | | | [phone] | | | +--------+ + + + [...] + + + +---------+ + + | Tolar-3 Fatty | CAPS, one capsule by | [...] rosebud | | | | | | | [...] | | | | | [place] [address] | | | | | | [phone] | | | | | | | | +--------+---------+ + + + | 01/01/ | Office | Cardiology | Silvia, | | | 2020 | Visit | | PARISA [place] [address] | | | | | | [place], | | | | | | [place] [address] | | | | | | [phone] | | | | | | | [...] [address] | [place] | [phone] | | [facility] | | [address] | | | - LABORATORY | | [...] + | [address] | [address] | [place] | [phone] | | [facility] | | [address] | | | - LABORATORY | | [...] use as of January 18 | | [facility] | | | | 2018. Check reference [...] + | [facility] | [address] | [place] | [phone] | | [facility] | | [address] | | | - LABORATORY | | [...] | | MEDICAL | | | | mL/min/1.56h9Urvl than | | CENTER - | | [...] 4.7 | 3.2 - 4.8 g/dL | [facility] | | | | | | MICHELLE [...] ine Ratio | | | ST[facility]uan [facility] MICHELLE [...] [address] | [place] | [phone] | | [facility] | | [address] | | | - LABORATORY | | [...] | | Eosinophils | | | [facility] | | [...] + | [address] | [address] | [place] | [phone] | | [facility] | | [address] | | | - LABORATORY | | [...] [address] | [place] | [phone] | | [facility] | | [address] | | | - LABORATORY | | [...] | | | | ANGELA MARADIAGA MD ([id number]) | | | | | | on [...] | | | | | Patient Address: [address] [place] [address] | | | | | | | [place] [address], | | | | | | + + + +------+---+---+ +---+---+ | | | +---+---+ documented in this encounter
--- OUTSIDE RECORDS SUMMARY | ~2019-12-06 | XMS | Encounter Summary ---
Demographics + + + | Address | [address] | | | [place] [address] | + + + | Home Phone [...] Providers + +------+ + | Care Cloth Laminating Supervisor Name | Role | Phone | [...] [address] | | | | | [place], | [place], | | | | | [place] [address] | [place] [address] | | | | | [phone] | [phone] | | | | | | | [...] | | | | | [place] [address] | | | | | | [phone] | | | | | | | | +--------+---------+ + + + | 01/01/ | Office | Cardiology | Silvia, | | | 2019 | Visit | | PARISA [place] [address] | | | | | | [place], | | | | | | [place] [address] | | | | | | [phone] | | | | | | | | +--------+---------+ + + + documented as of this encounter Visit Diagnoses Not on filedocumented in this encounter"
--- OUTSIDE RECORDS SUMMARY | ~2019-12-06 | XMS | Clinical Summary ---
Demographics + + + | Address | [address] [place] [address] | | | [place] [address] | + + + | Home Phone [...] [place] | | | | | [address] | | + + + + + Care Team Providers + +------+ + | Care Head Of Visual Merchandising Name | Role | Phone | + +------+ + | Darion Holden DO | PCP | | + +------+ + Source Comments IVETTE is fully live on both EpicCare Ambulatory and EpicCare InPatient.[facility] Allergies + + + + + [...] + + | 11/28/ | Abstract | Gastroenterology | Bridgette Rios, | Medical Records | | 2020 | | | MD | Review | +--------+ + + + + | 11/17/ | Telephone | Gastroenterology | Bridgette Rios, | Other (wants to | | 2018 | | | MD | change location of | | | | | | referral ) | +--------+ + + + + | 11/01/ | Telephone | Gastroenterology | Bridgette Rios, | Other | | 2018 | | | MD [...] Records | | 2018 | | | MD | Review | +--------+ + + + + | 10/11/ | Telephone | Gastroenterology | Bridgette Rios, | Other (stool lab | | 2018 | | | MD | results) | +--------+ + + + + | 10/04/ | Telephone | Gastroenterology | Bridgette Rios, | Diarrhea (ongoing | 2018 | | | MD | [...] | MEDICA | xxxxxxxxxxx | 11/22/19 | [phone] | [address] | Medica | | | RE A & | | 10-Pre | 1 | [address] | re | | | B | | sent | | [place] | | | | | | | | [address] | | + +--------+ +--------+ + +--------+ | [employer] | AARP | xxxxxxxxxx | 11/22/19 | [phone] | [address] | Indemn | | RETIRED PEOPLE | | | 10-Pre | 9 | [id number] | ity | | | | | sent | | [place] | | | | | | | | [address] | | + +--------+ +--------+ + +--------+ + +--------+ +--------+ + + | Guarantor Name | Accoun | Relation to | Date | Phone | Billing Address | | | t Type | Patient | of | | | | | | | | | | + +--------+ +--------+ + + | Moe Sanchez | Person | Self | [birth year] | [address] | | | al/Per | | 1959 | [phone] | [place] | | | [place] | | | 8 (Home) | [address] | + +--------+ +--------+ + + Advance Directives + + + + + | Type | Date Recorded | Patient | Explanation | | | | Yeast Pusher | | + + + + + | Advance | | | | | Directives and | | | | | Living Will | | | | + + + + + | Power of | | | | | Gantry Crane Operator | | | | + + + + +
--- OUTSIDE RECORDS SUMMARY | ~2019-12-06 | XMS | Encounter Summary ---
Demographics + + + | Address | [address] | | | [place] [address] | + + + | Home Phone [...] Providers + +------+ + | Care Portfolio Administrator Name | Role | Phone | + +------+ + PCP | Unavailable | + +------+ + Encounter Details +--------+ + + + + | Date | Type | Department | Care Team | Description | +--------+ + + + + | 06/17/ | Hospital | [facility] | | | | 2007 | Encounter | MED CTR EMERGENCY | | | | | | [place] [address] | | | | | | [place] | | | | | | [address] | | | | | | [phone] | | | +--------+ + + + [...] | | | | | [place] [address] | | | | | | [phone] | | | | | | | | +--------+---------+ + + + | 01/01/ | Office | Cardiology | Siliva, | | | 2020 | Visit | | PARISA [place] [address] | | | | | | [place], | | | | | | [place] [address] | | | | | | [phone] | | | | | | | | +--------+---------+ + + + documented as of this encounter Visit Diagnoses Not on filedocumented in this encounter"
--- OUTSIDE RECORDS SUMMARY | ~2019-12-06 | XMS | Encounter Summary ---
Demographics + + + | Address | [address] | | | [place] [address] | + + + | Home Phone [...] Team Providers + +------+ + | Care Layaway Clerk Name | Role | Phone | + +------+ + | Michael Amanda DO | PCP | | + +------+ + Reason for Visit + + + | Reason | Comments | + + + | Follow-up | One month with [facility] 12/25/13 | + + + | Chest Pain | | + + + Encounter Details +--------+---------+ + + + | Date | Type | Department | Care Team | Description | +--------+---------+ + + + | 01/29/ | Office | [facility] | Silvia, | Other chest pain | | 2013 | Visit | CARDIOLOGY [address] | PARISA [place] [address] | (Primary Dx); Chest | | | | [place], | [place], | pain; Coronary | | | | [place] [address] | [place] [address] | artery disease; | | | | [phone] | [phone] | Hyperlipidemia; | | | | | [...] to the emergency room at [facility] with a baljit st pain [...] needed for Chest pain. 25 tablet 12 [place]-3 Fatty Acids (SALMON OIL-1000 PO) CAPS, [...] was seen on the emergency room at [facility] on 01/26/2014, he was ruled out A [...] pain. He is in class II of [place] Heart Ass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 There are no [...] to go back in 3 days to [place] for an attempt of ablation under general [...] symptoms. He is in class II of [place] Heart Ass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 There are no [...] made to ensure accuracy; however, inadvertent computerized refinery operator helper errors may be pre sent. Electronically signed [...] | | | | | [place] [address] | | | | | | [phone] | | | | | | | | +--------+---------+ + + + | 01/01/ | Office | Cardiology | Silvia, | | | 2019 | Visit | | PARISA [place] [address] | | | | | | [place], | | | | | | [place] [address] | | | | | | [phone] | | | | | | | [...] tatitlek or graft | + + | Hyperlipidemia Other and unspecified hyperlipidemia | + + | Symptomatic PVCs Other premature beats | + + | Hypertension Unspecified essential hypertension | + + documented in this encounter
--- OUTSIDE RECORDS SUMMARY | ~2019-12-06 | XMS | Encounter Summary ---
Demographics + + + | Address | [address] | | | [place] [address] | + + + | Home Phone [...] Providers + +------+ + | Care Director Home Name | Role | Phone | + [...] + | 06/24/ | Telephone | [facility] | Daljit Singletary, | Lab Order | | 2017 | | CARDIOLOGY [address] | MD [address] [place] | | | | | [place], | [place], | | | | | [place] [address] | [place] [address] | | | | | [phone] | [phone] | | | | | | | [...] | | | | | [place] [address] | | | | | | [phone] | | | | | | | | +--------+---------+ + + + | 01/01/ | Office | Cardiology | Silvia, | | | 2019 | Visit | | PARISA [place] [address] | | | | | | [place], | | | | | | [place] [address] | | | | | | [phone] | | | | | | | [...] 06/24/2018, Expires: | | | | | [place] coronary | 06/24/2019 | | | | | artery of [place] river | | | | | | heart without angina | | | | | | pectoris | | | | | | Hyperlipidemia, | | | | | | mixed | | + +------+--------+ + + documented as of this encounter Visit Diagnoses + + | Diagnosis | + + | Coronary artery disease involving [place]ony [place] coronary artery of [place] heart without | | angina pectoris - Primary | + + | Hyperlipidemia, mixed Mixed hyperlipidemia | + + documented in this encounter"
--- OUTSIDE RECORDS SUMMARY | ~2019-12-06 | XMS | Encounter Summary ---
Demographics + + + | Address | [address] | | | [place] [address] | + + + | Home Phone [...] [address] | | | | | [place], | [place], | | | | | [place] [address] | [place] [address] | | | | | [phone] | [phone] | | | | | | | [...] | | | | | [place] [address] | | | | | | [phone] | | | | | | | | +--------+---------+ + + + | 01/01/ | Office | Cardiology | Silvia, | | | 2020 | Visit | | PARISA [place] [address] | | | | | | [place], | | | | | | [place] [address] | | | | | | [phone] | | | | | | | [...] ST. | [address] | [place] | | | [facility] | | [address] | | | - LABORATORY | | [...] [place] | | | [facility] | | [address] | | | - LABORATORY | | [...]
--- OUTSIDE RECORDS SUMMARY | ~2019-12-06 | XMS | Encounter Summary ---
Demographics + + + | Address | [address] | | | [place] [address] | + + + | Home Phone [...] Providers + +------+ + | Care Insurance Service Representative Name | Role | Phone [...] | 2018 | Changes | GASTROENTEROLOGY | Infantry Unit Leader | | | | | [address] [facility] | | | | | | [address] [place] | | | | | | [address] | | | | | | [phone] | | | +--------+ + + + [...] | | | | | [place] [address] | | | | | | [phone] | | | | | | | | +--------+---------+ + + + | 01/01/ | Office | Cardiology | Silvia, | | | 2019 | Visit | | PARISA [place] [address] | | | | | | [place], | | | | | | [place] [address] | | | | | | [phone] | | | | | | | | +--------+---------+ + + + documented as of this encounter Visit Diagnoses Not on filedocumented in this encounter"
--- OUTSIDE RECORDS SUMMARY | ~2019-12-06 | XMS | Encounter Summary ---
Demographics + + + | Address | [address] | | | [place] [address] | + + + | Home Phone [...] Providers + +------+ + | Care Warehouse Forklift Operator Name | Role | Phone | [...] [place] | | | | | [address] [place], [place] | [place] [address] | | | | | [address] | [phone] | | | | | [phone] | | | +--------+ + + + [...] | | | | | [place] [address] | | | | | | [phone] | | | | | | | | +--------+---------+ + + + | 01/01/ | Office | Cardiology | Silvia, | | | 2020 | Visit | | PARISA [place] [address] | | | | | | [place], | | | | | | [place] [address] | | | | | | [phone] | | | | | | | | +--------+---------+ + + + documented as of this encounter Visit Diagnoses Not on filedocumented in this encounter"
--- OUTSIDE RECORDS SUMMARY | ~2019-12-06 | XMS | Encounter Summary ---
Demographics + + + | Address | [address] | | | [place] [address] | + + + | Home Phone [...] Providers + +------+ + | Care Spot Facer Name | Role | Phone | + +------+ + PCP | Unavailable | + +------+ + Encounter Details +--------+ + + + + | Date | Type | Department | Care Team | Description | +--------+ + + + + | 07/20/ | [facility] | [facility] | Hunter Antnuez, | | | 2009 - | Encounter | MED CTR MED ONC | [address] | | | | | [address] [place] | [place] | | | 07/24/ | | [place] [address] | [address] | | | 2009 | | [phone] | | | +--------+ + + + [...] | | | | | [place] [address] | | | | | | [phone] | | | | | | | | +--------+---------+ + + + | 01/01/ | Office | Cardiology | Silvia, | | | 2020 | Visit | | PARISA [place] [address] | | | | | | [place], | | | | | | [place] [address] | | | | | | [phone] | | | | | | | | +--------+---------+ + + + documented as of this encounter Visit Diagnoses Not on filedocumented in this encounter"
--- OUTSIDE RECORDS SUMMARY | ~2019-12-06 | XMS | Clinical Summary ---
Demographics + + + | Address | [address] [place] [address] | | | [place] [address] | + + + | Home Phone [...] [place] | | | | | [address] | | + + + + + Care Team Providers + +------+ + | Care Director Of Hotel Operations Name | Role | Phone | + +------+ + | Darion Holden DO | PCP | | + +------+ + Source Comments IVETTE is fully live on both EpicCare Ambulatory and EpicCare InPatient.[facility] Allergies + + + + + [...] | MEDICA | xxxxxxxxxxx | 11/22/19 | [phone] | [address] | Medica | | | RE A & | | 10-Pre | 1 | [address] | re | | | B | | sent | | [place] | | | | | | | | [address] | | + +--------+ +--------+ + +--------+ | [employer] | AARP | xxxxxxxxxx | 11/22/19 | [phone] | [address] | Indemn | | RETIRED PEOPLE | | | 10-Pre | 9 | [id number] | ity | | | | | sent | | [place] | | | | | | | | [address] | | + +--------+ +--------+ + +--------+ + +--------+ +--------+ + + | Guarantor Name | Accoun | Relation to | Date | Phone | Billing Address | | | t Type | Patient | of | | | | | | | | | | + +--------+ +--------+ + + | Moe Sanchez | Person | Self | [birth year] | [address] | | | al/Per | | 1959 | [phone] | [place] | | | [place] | | | 8 (Home) | [address] | + +--------+ +--------+ + + Advance Directives + + + + + | Type | Date Recorded | Patient | Explanation | | | | Office Clerk Routine | | + + + + + | Advance | | | | | Directives and | | | | | Living Will | | | | + + + + + | Power of | | | | | Women'S Garment Fitter | | | | + + + + +
--- OUTSIDE RECORDS SUMMARY | ~2019-12-06 | XMS | Encounter Summary ---
Demographics + + + | Address | [address] | | | [place] [address] | + + + | Home Phone [...] + +------+ + | Care Machine Filler Name | Role | Phone | [...] | CARDIOLOGY [address] | [address] | Interrogation | | | | [place], | [place], | (Primary Dx); | | | | [place] [address] | [place] [address] | Presence of | | | | [phone] | [phone] | permanent cardiac | | | | [...] | | | | | [place] [address] | | | | | | [phone] | | | | | | | | +--------+---------+ + + + | 01/01/ | Office | Cardiology | Silvia, | | | 2019 | Visit | | PARISA [place] [address] | | | | | | [place] | | | | | | [place] [address] | | | | | | [phone] | | | | | | | [...] remote PDF scanned into | | | [employer] for remote interrogation results. Data collected by [...]
--- OUTSIDE RECORDS SUMMARY | ~2019-12-06 | XMS | Encounter Summary ---
Demographics + + + | Address | [address] | | | [place] [address] | + + + | Home Phone [...] Providers + +------+ + | Care Gas Pipe Layer Name | Role | Phone | + +------+ + PCP | Unavailable | + +------+ + Encounter Details +--------+ + + + + | Date | Type | Department | Care Team | Description | +--------+ + + + + | 06/14/ | [facility] | [facility] | Kennethshaistatesha Shaistakenneth, | | | 2008 - | Encounter | MED CTR MP INTRA OP | [address] | | | | | [address] | [place], | | | 06/15/ | | [place] | [place] [address] | | | 2008 | | [address] | [phone] | | | | | [phone] | | | +--------+ + + + [...] | | | | | | [place] [address] | | | | | | [phone] | | | | | | | | +--------+---------+ + + + | 01/01/ | Office | Cardiology | Silvia, | | | 2020 | Visit | | PARISA [place] [address] | | | | | | [place], | | | | | | [place] [address] | | | | | | [phone] | | | | | | | | +--------+---------+ + + + documented as of this encounter Visit Diagnoses Not on filedocumented in this encounter"
--- OUTSIDE RECORDS SUMMARY | ~2019-12-06 | XMS | Encounter Summary ---
Demographics + + + | Address | [address] | | | [place] [address] | + + + | Home Phone [...] + +------+ + | Care Light Bulb Tester Name | Role | Phone | [...] W | DISCLOSURE) | | | | [place], | [place], | | | | | [place] [address] | [place] [address] | | | | | [phone] | [phone] | | | | | | | [...] | | | | | [place] [address] | | | | | | [phone] | | | | | | | | +--------+---------+ + + + | 01/01/ | Office | Cardiology | Silvia, | | | 2019 | Visit | | PARISA [place] [address] | | | | | | [place], | | | | | | [place] [address] | | | | | | [phone] | | | | | | | | +--------+---------+ + + + documented as of this encounter Visit Diagnoses Not on filedocumented in this encounter"
--- OUTSIDE RECORDS SUMMARY | ~2019-12-06 | XMS | Encounter Summary ---
Demographics + + + | Address | [address] | | | [place] [address] | + + + | Home Phone [...] Team Providers + +------+ + | Care Anime Designer Name | Role | Phone | + +------+ + PCP | Unavailable | + +------+ + Encounter Details +--------+ + + + + | Date | Type | Department | Care Team | Description | +--------+ + + + + | 01/14/ | Hospital | [facility] | Deburi, | BACKACHE NOS | | 2004 | Encounter | [facility] | MD Tai [address] | | | | | CLINICAL DECISION | [place] | | | | | [address] | [place] [address] | | | | | [place], [place] | [phone] | | | | | [address] | | | | | | [phone] | | | +--------+ + + + [...] | | | | | [place] [address] | | | | | | [phone] | | | | | | | | +--------+---------+ + + + | 01/01/ | Office | Cardiology | Silvia, | | | 2020 | Visit | | [place] [address] | | | | | | [place], | | | | | | [place] [address] | | | | | | [phone] | | | | | | | | +--------+---------+ + + + documented as of this encounter Visit Diagnoses + + | Diagnosis | + + | Backache, unspecified | + + documented in this encounter"
--- OUTSIDE RECORDS SUMMARY | ~2019-12-06 | XMS | Encounter Summary ---
Demographics + + + | Address | [address] | | | [place] [address] | + + + | Home Phone [...] Team Providers + +------+ + | Care Pricing Strategist Name | Role | Phone | [...] | 03/02/ | Telephone | [facility] | Daljit Singletary, | Other | | 2013 | | CARDIOLOGY [address] | MD [address] | | | | | [place], | [place], | | | | | [place] [address] | [place] [address] | | | | | [phone] | | | | | | | [...] | | | | | [place] [address] | | | | | | [phone] | | | | | | | | +--------+---------+ + + + | 01/01/ | Office | Cardiology | Silvia, | | | 2019 | Visit | | PAR[facility] [place] [address] | | | | | | [place], | | | | | | [place] [address] | | | | | | [phone] | | | | | | | | +--------+---------+ + + + documented as of this encounter Visit Diagnoses Not on filedocumented in this encounter"
--- OUTSIDE RECORDS SUMMARY | ~2019-12-06 | XMS | Encounter Summary ---
Demographics + + + | Address | [address] | | | [place] [address] | + + + | Home Phone [...] Providers + +------+ + | Care Glass Designer Name | Role | Phone | [...] | 06/22/ | Telephone | [facility] | Vasiliy Michael Kelsey, | Eye Problem | | 2012 | | MEDICINE [place] | DO [address] | | | | | [address] | [place] | | | | | [place] | [address] | | | | | [address] | | | | | | [phone] | | | +--------+ + + + [...] | | | | | | [place] [address] | | | | | | [phone] | | | | | | | | +--------+---------+ + + + | 01/01/ | Office | Cardiology | Silvia, | | | 2019 | Visit | | PAR[facility] [place] [address] | | | | | | [place], | | | | | | [place] [address] | | | | | | [phone] | | | | | | | | +--------+---------+ + + + documented as of this encounter Visit Diagnoses Not on filedocumented in this encounter"
--- OUTSIDE RECORDS SUMMARY | ~2019-12-06 | XMS | Encounter Summary ---
Demographics + + + | Address | [address] | | | [place] [address] | + + + | Home Phone [...] Providers + +------+ + | Care Aquaculture Program Director Name | Role | Phone [...] Provider Unknown | | | | | [place], [place] | [phone] | | | | | [address] | | | | | | [phone] | | | +--------+ + + + [...] + + + +---------+ + + | [place]in[place]-3 Fatty | CAPS, one capsule by | [...] | | | | | [place] [address] | | | | | | [phone] | | | | | | | | +--------+---------+ + + + | 01/01/ | Office | Cardiology | Silvia, | | | 2019 | Visit | | PAR[facility] [place] [address] | | | | | | [place] | | | | | | [place] [address] | | | | | | [phone] | | | | | | | [...] Rad Conversion - 07/06/2019 12:12 AM PDT This is a non-reportable procedure | | without a radiologist report and isused for image storage only | + + documented in this encounter Visit Diagnoses + + | Diagnosis | + + | Pain Generalized pain | + + documented in this encounter"
--- OUTSIDE RECORDS SUMMARY | ~2019-12-06 | XMS | Encounter Summary ---
Demographics + + + | Address | [address] | | | [place] [address] | + + + | Home Phone [...] Providers + +------+ + | Care Staff Weapons Officer Name | Role | Phone | [...] | disease involving | | | | [place], | [place], | tetlin coronary | | | | [place] [address] | [place] [address] | artery without | | | | [phone] | [phone] | angina pectoris | | | | [...] | | | | | [place] [address] | | | | | | [phone] | | | | | | | | +--------+---------+ + + + | 01/01/ | Office | Cardiology | Silvia, | | | 2019 | Visit | | PAR[facility] [place] [address] | | | | | | [place], | | | | | | [place] [address] | | | | | | [phone] | | | | | | | [...] MD | | | | | | ([id number]) on 08/29/2015 | | | | | [...] + + | Coronary artery disease involving tetlin coronary artery without angina pectoris - | | Primary | + + documented in this encounter"
--- OUTSIDE RECORDS SUMMARY | ~2019-12-06 | XMS | Encounter Summary ---
Demographics + + + | Address | [address] | | | [place] [address] | + + + | Home Phone [...] Providers + +------+ + | Care Poultry Grader Name | Role | Phone | [...] loss | [address] | [address], | | | | | Anxiety | [address] | [address] | | | | | disorder, | [address] | [place], | | | | | unspecified | [place], [place] | [place] [address] | | | | | Chronic | [address] | Phone: | | | | | pain | Phone: | [phone] | | | | | syndrome | [phone] | Fax: | | | | | Procedures | Fax: | [phone] | | | | | office visit | [phone] | | +--------+--------+ + + + + Encounter Details +--------+---------+ + + + | Date | Type | Department | Care Team | Description | +--------+---------+ + + + | 12/26/ | Office | [facility] | Emmanuel Daniel MD | Functional diarrhea | | 2019 | Visit | GASTROENTEROLOGY | [address], [place] | (Primary Dx); | | | | [address] | [address] [place], [place] | Gastrointestinal | | | | [address] [place], [place] | [address] | hemorrhage | | | | [address] | | associated with | | | | [phone] | | anorectal source; | | | [...] | | | | | [place] [address] | | | | | | [phone] | | | | | | | | +--------+---------+ + + + | 01/01/ | Office | Cardiology | [place] | | | 2019 | Visit | | PAR[facility] [place] [address] | | | | | | [place], | | | | | | [place] [address] | | | | | | [phone] | | | | | | | [...]
--- OUTSIDE RECORDS SUMMARY | ~2019-12-06 | XMS | Encounter Summary ---
Demographics + + + | Address | [address] | | | [place] [address] | + + + | Home Phone [...] | | CARDIOLOGY [address] | Janeen, SPRAY GUN OPERATOR [address] | reading) | | | | [place], | [place], | | | | | [place] [address] | [place] [address] | | | | | [phone] | | | | | | | [...] | | | | | [place] [address] | | | | | | [phone] | | | | | | | | +--------+---------+ + + + | 01/01/ | Office | Cardiology | Silvia, | | | 2019 | Visit | | PAR[facility] [place] [address] | | | | | | [place] | | | | | | [place] [address] | | | | | | [phone] | | | | | | | | +--------+---------+ + + + documented as of this encounter Visit Diagnoses Not on filedocumented in this encounter"
--- OUTSIDE RECORDS SUMMARY | ~2019-12-06 | XMS | Encounter Summary ---
Demographics + + + | Address | [address] | | | [place] [address] | + + + | Home Phone [...] Team Providers + +------+ + | Care Com Writer Name | Role | Phone | [...] 2012 | | CARDIOLOGY [address] | JITTERBUG OPERATOR [address] [place] | to be referred | | | | [place], | [place], [place] | soon) | | | | [place] [address] | [address] | | | | | [phone] | | | +--------+ + + + [...] | | | | | [place] [address] | | | | | | [phone] | | | | | | | | +--------+---------+ + + + | 01/01/ | Office | Cardiology | Silvia, | | | 2019 | Visit | | [facility] [place] [address] | | | | | | [place] | | | | | | [place] [address] | | | | | | [phone] | | | | | | | | +--------+---------+ + + + documented as of this encounter Visit Diagnoses Not on filedocumented in this encounter"
--- OUTSIDE RECORDS SUMMARY | ~2019-12-06 | XMS | Encounter Summary ---
Demographics + + + | Address | [address] | | | [place] [address] | + + + | Home Phone [...] Providers + +------+ + | Care Solvent Plant Operator Name | Role | Phone [...] W | | | | | [place], | [place], | | | | | [place] [address] | [place] [address] | | | | | [phone] | | | | | | | [...] | | | | | | [place] [address] | | | | | | [phone] | | | | | | | | +--------+---------+ + + + | 01/01/ | Office | Cardiology | Silvia, | | | 2019 | Visit | | [place] [place] [address] | | | | | | [place], | | | | | | [place] [address] | | | | | | [phone] | | | | | | | | +--------+---------+ + + + documented as of this encounter Visit Diagnoses Not on filedocumented in this encounter"
--- OUTSIDE RECORDS SUMMARY | ~2019-12-06 | XMS | Encounter Summary ---
Demographics + + + | Address | [address] | | | [place] [address] | + + + | Home Phone [...] Team Providers + +------+ + | Care Kiss Setter Hand Name | Role | Phone | [...] Refill | | 2013 | | MEDICINE [facility] | DO [address] | | | | | [address] | [place] | | | | | [place] | [address] | | | | | [address] | | | | | | [phone] | | | +--------+--------+ + + + [...] | | | | | [place] [address] | | | | | | [phone] | | | | | | | | +--------+---------+ + + + | 01/01/ | Office | Cardiology | [place]via, | | | 2019 | Visit | | PAR[facility] [place] [address] | | | | | | [place], | | | | | | [place] [address] | | | | | | [phone] | | | | | | | | +--------+---------+ + + + documented as of this encounter Visit Diagnoses Not on filedocumented in this encounter"
--- OUTSIDE RECORDS SUMMARY | ~2019-12-06 | XMS | Encounter Summary ---
Demographics + + + | Address | [address] | | | [place] [address] | + + + | Home Phone [...] Providers + +------+ + | Care Delivery Department Supervisor Name | Role | Phone [...] encounter | | | | [place] | [address] | (Primary Dx) | | | | [address] | [place] | | | | | [phone] | [address] | | | | | | | [...] half hours. 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 I provided patient with Dr. Bradley's card so he may contact us for results. Patient's best phone number: [phone] Renetta Lockwood RN ary Bradshaw MD - [...] | | | | | [place] [address] | | | | | | [phone] | | | | | | | | +--------+---------+ + + + | 01/01/ | Office | Cardiology | Silvia, | | | 2019 | Visit | | PARISA [place] [address] | | | | | | [place], | | | | | | [place] [address] | | | | | | [phone] | | | | | | | [...] + | MISCELLANEOUS LAB | | | [phone] | + +---------+ + + | MISCELANIOUS LAB | | | [phone] | + +---------+ + + documented in this encounter Visit Diagnoses + + | Diagnosis | + + | Injury of left foot, initial encounter - Primary | + + documented in this encounter
--- OUTSIDE RECORDS SUMMARY | ~2019-12-06 | XMS | Encounter Summary ---
Demographics + + + | Address | [address] | | | [place] [address] | + + + | Home Phone [...] Team Providers + +------+ + | Care Slip Injector And Applicator Name | Role | Phone | [...] | region; Cervicalgia | | | | [place], [place] | (Fax) | | | | | [address] | Cesar, | | | | | [phone] | MD Gamaliel | | +--------+ + [...] Note by Meliza Macario RN at 05/11/14 1506 Author: Meliza Macario RN Service: (none) Author Type: Registered Nurse Filed: 05/11/14 1506 Date of Service: 05/11/14 150 Status: Signed Byproducts Maker: Meliza Macario RN (Registered Nurse) Pt discharged [...] Date of Service: 05/11/14 142 Status: Signed Byproducts Maker: Heike Mckeon RN (Registered Nurse) Called doctor [...] | | | | | [place] [address] | | | | | | [phone] | | | | | | | | +--------+---------+ + + + | 01/01/ | Office | Cardiology | Silvia, | | | 2019 | Visit | | PARISA [place] [address] | | | | | | [place] | | | | | | [place] [address] | | | | | | [phone] | | | | | | | [...] | | | intrathecal use. See the paraffin plant operator examination for details of the | | | injection. Bone algorithm noncontrast technique with reformatted | | | sagittal and coronal images. Prior study for review : CT discogram | | | from 2004 was used to orient this examination given the transitional | | | anatomy of the lumbosacral junction FINDINGS: Banbury Operator is notable | | | for [...] for intrathecal use. See | | the paraffin plant operator examination for details of the injection. Bone algorithm noncontrast | | technique with reformatted sagittal and coronal images. Prior study for review : CT | | discogram from 2004 was used to orient this examination given the transitional anatomy | | of the lumbosacral junction FINDINGS: Banbury Operator is notable for a pacing system. [...]
--- OUTSIDE RECORDS SUMMARY | ~2019-12-06 | XMS | Encounter Summary ---
Demographics + + + | Address | [address] | | | [place] [address] | + + + | Home Phone [...] + +------+ + | Care Roof Truss Detailer Name | Role | Phone | [...] + | 09/01/ | [facility] | [place], | Ascending thoracic | | 2015 | Visit | CARDIOLOGY [address] | [place] [address] | aortic aneurysm | | | | [place], | [place], | ([facility]) (Primary Dx); | | | | [place] [address] | [place] [address] | Coronary artery | | | | [phone] | [phone] | disease involving | | | | | | walker river coronary | | | | | | artery of walk[place] river | | | | | | [...] of non-critical coronary artery d isease involving [place] coronary artery of [place] heart without angina pectoris, essential h [...] episode of chest pain while [facility], so he took some sublingual nitroglycerin and [...] Preventative health care Coronary artery disease involving [place] coronary artery of [place] heart without angina pectoris Cannabis abuse, [...] 3rd dose, call 911 100 tablet 3 [place]-3 Fatty Acids (SALMON OIL-1000 PO) CAPS, one capsule by mouth daily twice daily ONE TOUCH DELICA LANCETS [facility] Check glucose as needed for hypoglycemia [...] 129* 05/12/2016 I reviewed records from [facility] for office visit on 06/2016 [facility] ch is summarized in the HPI. [...] He is in class II of the [place] [employer] 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 On physical examination there are no signs of fluid overload. The plan will be to lose weight, modify portion control, start exercising, limit sodium in take and we will start losartan 25 mg once a day with a close monitoring of blood pressure. 2. Non-critical Coronary artery disease involving [place] coronary artery of [place] heart [facility] angina pectoris: A. Normal exercise sestamibi [...] to go back in 3 days to [place] for an attempt of ablation under general [...] this chart may have been created with [employer] voice recognition software. Occasi onal wrong-word or [...] | | | | | [place] [address] | | | | | | [phone] | | | | | | | | +--------+---------+ + + + | 01/01/ | Office | Cardiology | [place]via | | 2019 | Visit | | PARISA [place] [address] | | | | | | [place], | | | | | | [place] [address] | | | | | | [phone] | | | | | | | [...] + + | Coronary artery disease involving walk[place] coronary artery of walk[place] river heart without | | angina pectoris | + + | Essential hypertension with goal blood pressure less than 130/80 | + + | Hyperlipidemia, mixed Mixed hyperlipidemia | + + documented in this encounter
--- OUTSIDE RECORDS SUMMARY | ~2019-12-06 | XMS | Encounter Summary ---
Demographics + + + | Address | [address] | | | [place] [address] | + + + | Home Phone [...] Team Providers + +------+ + | Care Textile Machine Operator Name | Role | Phone | + +------+ + | Kirk French MD | PCP | | + +------+ + Encounter Details +--------+---------+ + + + | Date | Type | Department | Care Team | Description | +--------+---------+ + + + | 01/25/ | Surgery | [facility] | Daljit Singletary, | CV LHC | | 2019 | | MED CTR CV INTRA OP | MD [address] | | | | | [address] | [place], | | | | | [place] | [place] [address] | | | | | [address] | [phone] | | | | | [phone] | | | +--------+---------+ + + + [...] by your healthcare provider Date Last Reviewed: 09/22/[id number] [employer]. [address] [place] [address]. All righ ts reserved. This information is [...] + + +---------+ + + | [place]-3 Fatty | CAPS, one capsule by | [...] | | | | | [place] [address] | | | | | | [phone] | | | | | | | | +--------+---------+ + + + | 01/01/ | Office | Cardiology | Silvia, | | | 2019 | Visit | | PARISA [place] [address] | | | | | | [place], | | | | | | [place] [address] | | | | | | [phone] | | | | | | | [...] (1960) MEDICAL RECORD NUMBER: | | | [id number] OF PROCEDURE: 01/25/2019 SECOND LANGUAGE TUTOR: Daljit | | | MD Gemini PROCEDURES [...] | |PRIMARY CARE PROVIDER: | | |Kirk Frnech MD | | | | | | [...] Sanchez, (1960) | | OF PROCEDURE: 01/25/2019PRIMARY AUTO MECHANIC SUPERVISOR: Daljit Singletary MD PROCEDURES | | [...] | Aggressive medical management. | | at 9:33PRCRITICAL ACCESS HOSPITALRY CARE PROVIDER:Kirk French MDFor additional detail [...] | nitroglycerin 100 mcg/mL | Given | 03/06/20 | 400 mcg | | Right | [...]
--- OUTSIDE RECORDS SUMMARY | ~2019-12-06 | XMS | Encounter Summary ---
Demographics + + + | Address | [address] | | | [place] [address] | + + + | Home Phone [...] Providers + +------+ + | Care Blind Hooker Name | Role | Phone | [...] unspecified | [address] | | | | | type | [address] | [place], | | | | | Procedures | [place], | [place] | | | | | [place] | [place] [address] | [address] | | | | | Stress Test | Phone: | Phone: | | | | | (Vasodilator | [phone] | [phone] | | | | | ) CHG | Fax: | Fax: | | | | | MYOCARDIAL | [phone] | [phone] | | | | | SPECT | | | | | | | MULTIPLE | | | | | | | STUDIES CA | | | | | | | CV STRS TST | | | | | | | XERS&/OR RX | | | | | | | CONT ECG W/O | | | | | | | I&R CA | | | | | | [...] | type | [address] | [address] | | | | | Procedures | [place] | [place], | | | | | FUP | [place] | [place] [address] | | | | | | [address] | Phone: | | | | | | Phone: | [phone] | | | | | | [phone] | Fax: | | | | | | Fax: | [phone] | | | | | | [phone] | | +--------+ + + + + + Encounter Details +--------+---------+ + + + | Date | Type | Department | Care Team | Description | +--------+---------+ + + + | 06/27/ | Office | [facility] | Sydni Singletary, | Pacemaker | | 2017 | Visit | CARDIOLOGY [address] | [address] [facility] | reprogramming/check | | | | [place], | [place], | DO NOT DELETE | | | | [place] [address] | [place] [address] | (Primary Dx); Chest | | | | [phone] | [phone] | pain, unspecified | | | | [...] of non-critical coronary artery d isease involving ruby coronary artery of ruby heart without angina pectoris, essential h ypertension, [...] that time, patient has been seen at [place] emergency department on 018 for chest pain [...] Preventative health care Coronary artery disease involving ruby coronary artery of ruby heart without angina pectoris Cannabis abuse, daily [...] by mouth every evening 90 tablet 0 [facility] Natural [...] 3RD DOSE, CALL 911 100 tablet 3 [place]-3 Fatty Acids (SALMON OIL-1000 PO) CAPS, one [...] to go back in 3 days to [place] for an attempt of ablation under general [...] PVCs. 2. Non-critical Coronary artery disease involving ruby coronary artery of ruby heart [facility] angina pectoris: A. Normal exercise sestamibi stress test on 05/25/09. LVEF by [facility] ed SPECT was 53%. B. [...] cannot completely be ruled out . D. [facility] 12/25/13, shows non [...] He is in a class I of [place] [employer] functiona l class. There is [...] reviewed and edited this note. Allyson Curtis, Editor At Large 06/27/2018 I, Sydni Singletary MD, personally performed the services described in this documentation, as scribed in my presence and it is both accurate and complete. Allyson Curtis, Med Ass t 06/27/2018 14:15 Electronically signed by: Sydni Singletary MD [facility] 06/27/2018 Portions of this chart may have been created with [employer] voice recognition software. Occasi onal wrong-word or [...] | | | | | [place] [address] | | | | | | [phone] | | | | | | | | +--------+---------+ + + + | 01/01/ | Office | Cardiology | [place], | | | 2019 | Visit | | PARISA [address] | | | | | | [place], | | | | | | [place] [address] | | | | | | [phone] | | | | | | | [...] 08/25/2018 13:12 Wireless even study from | [facility] [place] | | 07/21 until 08/22/2018. Baseline [...] MD | | | | | | ([id number]) on 06/27/2018 | | | | | [...]
--- OUTSIDE RECORDS SUMMARY | ~2019-12-06 | XMS | Encounter Summary ---
Demographics + + + | Address | [address] | | | [place] [address] | + + + | Home Phone [...] Team Providers + +------+ + | Care Hcc Coders Name | Role | Phone | [...] | | CARDIOLOGY [address] | [address] [place] | | | | | [place], | [place], | | | | | [place] [address] | [place] [address] | | | | | [phone] | [phone] | | | | | | | [...] | | | | | [place] [address] | | | | | | [phone] | | | | | | | | +--------+---------+ + + + | 01/01/ | Office | Cardiology | [place]via, | | | 2019 | Visit | | PARISA [address] | | | | | | [place], | | | | | | [place] [address] | | | | | | [phone] | | | | | | | | +--------+---------+ + + + documented as of this encounter Visit Diagnoses Not on filedocumented in this encounter"
--- OUTSIDE RECORDS SUMMARY | ~2019-12-06 | XMS | Encounter Summary ---
Demographics + + + | Address | [address] | | | [place] [address] | + + + | Home Phone [...] Providers + +------+ + | Care Home Care Coordinator Name | Role | Phone | + +------+ + PCP | Unavailable | + +------+ + Encounter Details +--------+ + + + + | Date | Type | Department | Care Team | Description | +--------+ + + + + | 05/24/ | Hospital | [facility] | Chi Fang | Unspecified Chest | | 2008 - | Encounter | [facility]ICAL [facility]ENTER | MD Kelsey [address] | Pain | | | | CLINICAL DECISION | [place] | | | 05/25/ | | [address] | [address] | | | 2008 | | [place], [place] | [phone] | | | | | [address] | | | | | | [phone] | | | +--------+ + + + [...] | | | | | | [place] [address] | | | | | | [phone] | | | | | | | | +--------+---------+ + + + | 01/01/ | Office | Cardiology | [place]via, | | | 2019 | Visit | | PARISA [address] | | | | | | [place], | | | | | | [place] [address] | | | | | | [phone] | | | | | | | [...] Performed At | + + + | [id number] | | | Page 1 RADIOLOGY | | | [facility] [address]/ | | | [facility] | | | CENTER NAME: [place] [address] | | | | | | | | | DATE OF : 1960 ORDER NUMBER: | | | [id number] EXAM DATE/TIME: 05/25/2009 08:00 A ORDERING PHYSICIAN: [...] | | administration of 14.9 mCi of lblfzaxwyi-58y-gbxlvce Myoview. Stress | | | images postinjection [...] | | | images. Prone images demonstrate denominational of the inferior wall | | | [...] | | A P | | | TSG/[id number]/ cc: MD FEMI FOSS, | | | MD CHI FANG, MD AMY BANEGAS DO | | + + + + + | Procedure Note | + + | Kalpesh Brown - 07/17/2019 2:13 AM PDT | | [id number] Page 1 | | RADIOLOGY CDU 97827/ | | OPO | | [facility] NAME: PINA GAY | | [place] [address] | | | | DATE OF : 1960 | | | | ORDER NUMBER: [id number] | | EXAM DATE/TIME: 05/25/2009 08:00 A [...] administration of 14.9 mCi | | of kqxymxwdkp-35r-wodshpi Myoview. Stress images postinjection of 47.7 | [...] | | | | Prone images demonstrate denominational of the inferior wall nicely. | | [...] | A | | P | | TSG/dc/[id number]/ | | cc: ANGELA MARADIAGA MD | | FEMI MARIE MD | | CHI FANG MD | | AMY BANEGAS DO | + + ECHO Complete (05/25/2009 7:50 AM PDT) + + | Specimen | + + | | + + + + + | Narrative | Performed At | + + + | [id number] | | | Page 1 ECHO [facility] NAME: | | | [place] [address] MEDICAL RECORD #: | | | [id number] | | | DATE OF : 1960 ORDER | | | NUMBER: [id number] EXAM DATE/TIME: 05/25/2009 07:34 PERFORMING | | [...] Excursion: | | | 1.89 cm E-F Loup: 0.08 m/s HR: 43.51 BPM AV maxP.11 [...] | | | 0.33 m/s TV Dec Loup: 1.73 m/s2 TV Dec Time: 344.24 ms TV | | | E Bravo: 0.59 m/s TV E/A Ratio: 1.80 TV maxP.40 mmHg TV | | | meanP.44 mmHg TV Vmax: 0.59 m/s TV Vmean: 0.30 m/s TV | | | VTI: 22.88 cm Linen Supervisor: ANTHONY Authenticated by: Edwardo Tee | | | Carlos WINKLER Report Date/Time: 05-25-2009 10:19:52 | | + + + + + | Procedure Note | + + | Kalpesh Brown - 07/17/2019 2:13 AM PDT [id number] | | Page [address] [place] [address] NAME: [place], [place] | | [address] : ACCOUNT #: | | [id number]: DATE OF : 1960ORDER NUMBER: | | [id number] DATE/TIME: 05/25/2009 07:34PERFORMING PHYSICIAN: Edwardo Gonzalez | [...] mlLAESV Index (A-L): 26.03 ml/m2LAAs A2C: 14.93 [id number] A-L | | A2C: 44.50 mlLALs A2C: 4.25 cmLAAs A4C: 18.42 [id number] A-L A4C: 55.79 mlLALs | | A4C: 5.16 cmAo Diam: 3.91 cmAV Cusp: 2.23 cmLA Diam: 3.79 cmLA/Ao: 0.96%FS: | | 43.37 %EDV(Teich): 146.19 mlEF(Teich): 73.99 %ESV(Teich): 38.01 mlIVSd: 1.57 | | cmIVSs: 1.79 cmLVIDd: 5.48 cmLVIDs: 3.10 cmLVPWd: 1.32 cmLVPWs: 1.79 | | cmSV(Teich): 108.18 mlD-E Excursion: 1.89 cmE-F Loup: 0.08 m/sHR: 43.51 BPMAV | | maxP.11 mmHgAV meanP.33 mmHgAV Vmax: 1.74 m/Zabrina Vmean: 1.06 m/Zabrina VTI: | | 35.51 cmAVA Vmax: 2.77 cm2AVA (VTI): 2.54 [id number] Dopp: 3.00 l/wtpg6UOOO Dopp: | | 6.33 l/minHR: 70.25 BPMLVOT maxP.78 mmHgLVOT meanP.02 mmHgLVSI Dopp: | | 42.76 ml/m2LVSV Dopp: 90.23 mlLVOT Vmax: 1.30 m/sLVOT Vmean: 0.80 m/sLVOT VTI: | | 24.35 cmMV A Bravo: 0.70 m/sMV DecT: 242.46 msMV E Bravo: 0.91 m/sMV E/A Ratio: | | 1.31MV maxP.40 mmHgMV meanP.82 mmHgMV Vmax: 0.92 m/sMV Vmean: 0.37 m/sMV | | VTI: 26.47 cmMVA (VTI): 3.40 on9Pjhwmm e': 0.08 m/sSeptal E/e': 11.24HR: | | 60.55 BPMPV maxP.04 mmHgPV meanP.39 mmHgPV Vmax: 0.87 m/sPV Vmean: 0.55 | | m/sPV VTI: 19.09 cmRAP: 5 mmHgRVSP: 21.72 mmHgTR maxP.72 mmHgTR Vmax: | | 2.04 m/sTV A Bravo: 0.33 m/sTV Dec Loup: 1.73 m/s2TV Dec Time: 344.24 msTV E Bravo: | | 0.59 m/sTV E/A Ratio: 1.80TV maxP.40 mmHgTV meanP.44 mmHgTV Vmax: 0.59 | | m/sTV Vmean: 0.30 m/sTV VTI: 22.88 cm Linen Supervisor: EMERYuthenticated by: Edwardo Tee | | Carlos [...] | |D-E Excursion: 1.89 cm | |E-F Loup: 0.08 m/s | |HR: 43.51 BPM | [...] A Bravo: 0.33 m/s | |TV Dec Loup: 1.73 m/s2 | |TV Dec Time: 344.24 ms | |TV E Bravo: 0.59 m/s | |TV E/A Ratio: 1.80 | |TV maxP.40 mmHg | |TV meanP.44 mmHg | |TV Vmax: 0.59 m/s | |TV Vmean: 0.30 m/s | |TV VTI: 22.88 cm | | | |Linen Supervisor: KVW | |Authenticated by: Edwardo Gonzalez MD | |Report Date/Time: 05-25-2009 10:19:52 | + + CT Head wo Contrast (05/24/2009 12:58 PM PDT) + + | Specimen | + + | | + + + + + | Narrative | Performed At | + + + | [id number] | | | Page 1 RADIOLOGY | | | CDU 16056/ | | | OPO [facility] | | | CENTER NAME: [place] [address] | | | | | | | | | DATE OF : 1960 ORDER NUMBER: | | | [id number] EXAM DATE/TIME: 05/24/2009 12:47 P ORDERING PHYSICIAN: [...] | | asymmetrically dense vessel about the c[place] of Pearson. No | | | hydrocephalus. [...] 08:45 P P P | | | [facility]/tp/[id number]/ cc: MD ANGELA AVENDAÑO MD | | | MD AMY HAM DO | | + + + + + | Procedure Note | + + | Kevin, Rad Conversion - 07/17/2019 2:13 AM PDT | | [id number] Page 1 | | RADIOLOGY CDU 53288/ | | OPO | | [facility] NAME: PINA GAY | | [place] [address] | | | | DATE OF : 1960 | | | | ORDER NUMBER: [id number] | | EXAM DATE/TIME: 05/24/2009 12:47 P [...] is no asymmetrically dense vessel about the c[place] of [place]. No | | hydrocephalus. Some [...] | P | | P | | [facility]//[id number]/ | | cc: VINAY HILL MD | | ANGELA MARADIAGA MD | | FEMI MARIE MD | | AMY P BASSAM, DO | + + XR Chest 2 Vws (05/24/2009 11:31 AM PDT) + + | Specimen | + + | | + + + + + | Narrative | Performed At | + + + | [id number] | | | Page 1 RADIOLOGY | | | [facility] [address]/ | | | OPO [facility] | | | CENTER NAME: [place] [address] | | | | | | | | | DATE OF : 1960 ORDER NUMBER: | | | [id number] EXAM DATE/TIME: 05/24/2009 11:19 A ORDERING PHYSICIAN: [...] DT: | | | 05/24/2009 05:38 P [facility]/cf/[id number]/ cc: VINAY HILL MD | | | MD FEMI FOSS MD JOSEPH | | | P DO BASSAM | | + + + + + | Procedure Note | + + | Kalpesh Brown Conversion - 07/17/2019 2:13 AM PDT | | [id number] Page 1 | | RADIOLOGY CDU 72524/ | | OPO | | [facility] NAME: PINA GAY | | [place] [address] | | | | DATE OF : 1960 | | | | ORDER NUMBER: [id number] | | EXAM DATE/TIME: 05/24/2009 11:19 A [...] | P | | P | | [facility]//[id number]/ | | cc: VINAY HILL MD | | ANGELA MARADIAGA MD | | FEMI MARIE MD | | AMY BANEGAS DO | + + documented in this encounter Visit Diagnoses + + | Diagnosis | + + | Chest pain, unspecified | + + documented in this encounter"
--- OUTSIDE RECORDS SUMMARY | ~2019-12-06 | XMS | Encounter Summary ---
Demographics + + + | Address | [address] | | | [place] [address] | + + + | Home Phone [...] Providers + +------+ + | Care Police Commissioner Name | Role | Phone | [...] | | | | of feces, | [address], [place] | [address] | | | | | unspecified | [address] [place] | [place], [place] | | | | | fecal | [place], [place] | [address] | | | | | incontinence | [address] | Phone: | | | | | type | Phone: | [phone] | | | | | Diarrhea, | [phone] | Fax: | | | | | unspecified | Fax: | [phone] | | | | | type | [phone] | | +--------+ + + + + [...] 2018 | | GASTROENTEROLOGY | [address], [place] | | | | | [address] [place] | [address] [place], [place] | | | | | [address] [place], [place] | [address] | | | | | [address] | | | | | | [phone] | | | +--------+ + + + [...] | | | | | [place] [address] | | | | | | [phone] | | | | | | | | +--------+---------+ + + + | 01/01/ | Office | Cardiology | [place], | | | 2020 | Visit | | PARISA [address] | | | | | | [place] | | | | | | [place] [address] | | | | | | [phone] | | | | | | | [...]
--- OUTSIDE RECORDS SUMMARY | ~2019-12-06 | XMS | Encounter Summary ---
Demographics + + + | Address | [address] | | | [place] [address] | + + + | Home Phone [...] Providers + +------+ + | Care Operations Team Leader Name | Role | Phone [...] [place] | | | | | [address] [place], [place] | [address] | | | | | [address] | | | | | | [phone] | | | +--------+ + + + [...] | | | | | [place] [address] | | | | | | [phone] | | | | | | | | +--------+---------+ + + + | 01/01/ | Office | Cardiology | [place], | | | 2019 | Visit | | PARISA [address] | | | | | | [place], | | | | | | [place] [address] | | | | | | [phone] | | | | | | | [...] documented in this encounter Results External Lab: [facility] (10/18/2017) + +-------+ + + + | [...]
--- OUTSIDE RECORDS SUMMARY | ~2019-12-06 | XMS | Encounter Summary ---
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 Name | Role | Phone | [...] + | 02/16/ | Telephone | [facility] | [place], | Other (concerned | | 2012 | | CARDIOLOGY [address] | PAR[address] | about palpitations) | | | | [place], | [place], | | | | | [place] [address] | [place] [address] | | | | | [phone] | [phone] | | | | | | | [...] | | | | | [place] [address] | | | | | | [phone] | | | | | | | | +--------+---------+ + + + | 01/01/ | Office | Cardiology | [place], | | | 2019 | Visit | | PARISA Vernon [address] | | | | | | [place], | | | | | | [place] [address] | | | | | | [phone] | | | | | | | | +--------+---------+ + + + documented as of this encounter Visit Diagnoses Not on filedocumented in this encounter"
--- OUTSIDE RECORDS SUMMARY | ~2019-12-06 | XMS | Encounter Summary ---
Demographics + + + | Address | [address] | | | [place] [address] | + + + | Home Phone [...] Providers + +------+ + | Care Cash Applications Associate Name | Role | Phone | + +------+ + PCP | Unavailable | + +------+ + Encounter Details +--------+ + + + + | Date | Type | Department | Care Team | Description | +--------+ + + + + | 11/14/ | [facility] | [facility] | William Hirsch | | | 1999 | Encounter | MED CTR EMERGENCY | MD Cristobal [address] | | | | | CENTER [address] | [address] [place] | | | | | [place] | [place] [address] | | | | | [address] | [phone] | | | | | [phone] | | | +--------+ + + + [...] | | | | | [place] [address] | | | | | | [phone] | | | | | | | | +--------+---------+ + + + | 01/01/ | Office | Cardiology | [place]via, | | | 2020 | Visit | | PARISA Vernon [address] | | | | | | [place], | | | | | | [place] [address] | | | | | | [phone] | | | | | | | | +--------+---------+ + + + documented as of this encounter Visit Diagnoses Not on filedocumented in this encounter"
--- OUTSIDE RECORDS SUMMARY | ~2019-12-06 | XMS | Encounter Summary ---
Demographics + + + | Address | [address] | | | [place] [address] | + + + | Home Phone [...] | + + +---------+ + | Maria Isbael Sanchez | ECON | Unknown | | + + +---------+ + Care Team Providers + +------+ + | Care Dog And Cat Food Cook Name | Role | Phone | [...] [address] | | | | | [place], | [place], | | | | | [place] [address] | [place] [address] | | | | | [phone] | [phone] | | | | | | | [...] | | | | | [place] [address] | | | | | | [phone] | | | | | | | | +--------+---------+ + + + | 01/01/ | Office | Cardiology | [place]via, | | | 2019 | Visit | | PARISA [address] | | | | | | [place], | | | | | | [place] [address] | | | | | | [phone] | | | | | | | | +--------+---------+ + + + documented as of this encounter Visit Diagnoses Not on filedocumented in this encounter"
--- OUTSIDE RECORDS SUMMARY | ~2019-12-06 | XMS | Encounter Summary ---
Demographics + + + | Address | [address] | | | [place] [address] | + + + | Home Phone [...] Providers + +------+ + | Care Manager Commercial Real Estate Name | Role | Phone | + [...] | [address] [place] | [place] [address] | | | | | [address] | [phone] | | | | | [phone] | | | +--------+ + + + [...] | | | | | [place] [address] | | | | | | [phone] | | | | | | | | +--------+---------+ + + + | 01/01/ | Office | Cardiology | Silvia, | | | 2020 | Visit | | PARISA [address] | | | | | | [place], | | | | | | [place] [address] | | | | | | [phone] | | | | | | | | +--------+---------+ + + + documented as of this encounter Visit Diagnoses Not on filedocumented in this encounter"
--- OUTSIDE RECORDS SUMMARY | ~2019-12-06 | XMS | Encounter Summary ---
Demographics + + + | Address | [address] | | | [place] [address] | + + + | Home Phone [...] Team Providers + +------+ + | Care Robotic Machine Operator Name | Role | Phone [...] | | CARDIOLOGY [address] | Janeen, WOODS SUPERINTENDENT [address] | Clearance) | | | | [place], | [place], | | | | | [place] [address] | [place] [address] | | | | | [phone] | [phone] | | | | | | | [...] | | | | | [place] [address] | | | | | | [phone] | | | | | | | | +--------+---------+ + + + | 01/01/ | Office | Cardiology | [place]via, | | | 2019 | Visit | | PARISA [address] | | | | | | [place] | | | | | | [place] [address] | | | | | | [phone] | | | | | | | | +--------+---------+ + + + documented as of this encounter Visit Diagnoses Not on filedocumented in this encounter"
--- OUTSIDE RECORDS SUMMARY | ~2019-12-06 | XMS | Encounter Summary ---
Demographics + + + | Address | [address] | | | [place] [address] | + + + | Home Phone [...] Providers + +------+ + | Care Mold Car Pusher Name | Role | Phone | + +------+ + PCP | Unavailable | + +------+ + Encounter Details +--------+ + + + + | Date | Type | Department | Care Team | Description | +--------+ + + + + | 06/25/ | [facility] | [facility] | Daljit Singletary, | | | 2008 | Encounter | MED CTR XRAY [address] | [address] | | | | | [place] | [place], | | | | | [place] [address] | [place] [address] | | | | | [phone] | [phone] | | | | | | | [...] W | | | | | | [address] | | | | | | [place] [address] | | | | | | [phone] | | | | | | | | +--------+---------+ + + + | 01/01/ | Office | Cardiology | [place]via, | | | 2020 | Visit | | PARISA [address] | | | | | | [place], | | | | | | [place] [address] | | | | | | [phone] | | | | | | | | +--------+---------+ + + + documented as of this encounter Visit Diagnoses Not on filedocumented in this encounter"
--- OUTSIDE RECORDS SUMMARY | ~2019-12-06 | XMS | Encounter Summary ---
Demographics + + + | Address | [address] | | | [place] [address] | + + + | Home Phone [...] Providers + +------+ + | Care Second Vp Hr Assessment Name | Role | Phone | + [...] [facility] | [place], | CAD (coronary artery | | 2012 | Visit | CARDIOLOGY [address] | Janeen, SIGN FABRICATOR [address] | disease) (Primary | | | | [place], | [place], | Dx); Bradycardia; | | | | [place] [address] | [place] [address] | HTN (hypertension); | | | | [phone] | [phone] | Lightheadedness | | | | | [...] tablet Take 1,000 mg by mouth Daily. Hatch-3 Fatty Acids (SALMON OIL-1000 PO) CAPS, one [...] himself t o the emergency department at [facility] in [place], [place]. EKG showed normal s inus rhythm [...] Refer patient to an electrophysiology specialist in [place] for further evaluation for P VC's ablation. I have given verbal instructions and written material for patient to read mo re about the procedure. 2. Check blood pressure and pulse twice daily for two weeks and return the log to our offic e. 3. Followup appointment after patient's appointment with database management specialist/ablation. IJaneen ARNP, saw this patient under the direct supervision of Daljit Singletary MD Portions of this report were transcribed using voice recognition software. Every effort wa s made to ensure accuracy; however, inadvertent computerized associate oracle retail errors may be pre sent. documented in [...] | | | | | | [place] [address] | | | | | | [phone] | | | | | | | | +--------+---------+ + + + | 01/01/ | Office | Cardiology | Silvia, | | | 2019 | Visit | | PARISA [address] | | | | | | [place] | | | | | | [place] [address] | | | | | | [phone] | | | | | | | | +--------+---------+ + + + documented as of this encounter Visit Diagnoses + + | Diagnosis | + + | CAD (coronary artery disease) - Primary Coronary atherosclerosis of unspecified type | | of vessel, cahto or graft | + + | Bradycardia Other specified cardiac dysrhythmias | + + | HTN (hypertension) Unspecified essential hypertension | + + | Lightheadedness Dizziness and giddiness | + + documented in this encounter
--- OUTSIDE RECORDS SUMMARY | ~2019-12-06 | XMS | Encounter Summary ---
Demographics + + + | Address | [address] | | | [place] [address] | + + + | Home Phone [...] Providers + +------+ + | Care Patternmaker Pressure Cast Name | Role | Phone | + [...] unspecified | [address] | [address] | | | | | type | [address] | [place], | | | | | Procedures | [place], | [place] | | | | | [place] | [place] [address] | [address] | | | | | Stress Test | Phone: | Phone: | | | | | (Vasodilator | [phone] | [phone] | | | | | ) CHG | Fax: | Fax: | | | | | MYOCARDIAL | [phone] | [phone] | | | | | SPECT | | | | | | | MULTIPLE | | | | | | | STUDIES AL | | | | | | | CV STRS TST | | | | | | | XERS&/OR RX | | | | | | | CONT ECG W/O | | | | | | | I&R AL | | | | | | | [...] | type | [address] | [address] | | | | | Procedures | [place] | [place], | | | | | FUP | [place] | [place] [address] | | | | | | [address] | Phone: | | | | | | Phone: | [phone] | | | | | | [phone] | Fax: | | | | | | Fax: | [phone] | | | | | | [phone] | | +--------+ + + + + + Encounter Details +--------+---------+ + + + | Date | Type | Department | Care Team | Description | +--------+---------+ + + + | 06/27/ | Office | [facility] | Sydni Singletary, | Pacemaker | | 2017 | Visit | CARDIOLOGY [address] | [address] [facility] | reprogramming/check | | | | [address] [place], | [place], | DO [place] DELETE | | | | [place] [address] | [place] [address] | (Primary Dx); Chest | | | | [phone] | [phone] | pain, unspecified | | | | [...] of non-critical coronary artery d isease involving swinomish coronary artery of swinomish heart without angina pectoris, essential h ypertension, [...] that time, patient has been seen at [place] emergency department on 018 for chest pain [...] Preventative health care Coronary artery disease involving swinomish coronary artery of swinomish heart without angina pectoris Cannabis abuse, daily [...] by mouth every evening 90 tablet 0 [facility] Natural Products (OSTEO BI-FLEX/5-LOXIN ADVANCED PO) Take [...] 3RD DOSE, CALL 911 100 tablet 3 [place]-3 Fatty Acids (SALMON OIL-1000 PO) CAPS, [...] to go back in 3 days to [place] for an attempt of ablation under general [...] PVCs. 2. Non-critical Coronary artery disease involving swinomish coronary artery of swinomish heart [facility] angina pectoris: A. Normal exercise sestamibi stress test on 05/25/09. LVEF by [facility] ed SPECT was 53%. B. Echocardiogram from [...] cannot completely be ruled out . [facility] 12/25/13, shows non critical coronary artery [...] He is in a class I of [place] [employer] functiona l class. There is [...] reviewed and edited this note. Allyson Curtis, Title Processor 06/27/2018 I, Sydni Singletary MD, personally performed the services described in this documentation, as scribed in my presence and it is both accurate and complete. Allyson Curtis, Med Ass t 06/27/2018 14:15 Electronically signed by: Sydni Singletary MD [facility] 06/27/2018 Portions of this chart may have been created with Jolancer voice recognition software. Occasi onal wrong-word or [...] | | | | | [place] [address] | | | | | | [phone] | | | | | | | | +--------+---------+ + + + | 01/01/ | Office | Cardiology | [place], | | | 2019 | Visit | | PARISA [place] [address] | | | | | | [address] [place], | | | | | | [place] [address] | | | | | | [phone] | | | | | | | [...] 08/25/2018 13:12 Wireless even study from | [facility] | | 07/21 until [...] MD | | | | | | ([id number]) on 06/27/2018 | | | | | [...]
--- OUTSIDE RECORDS SUMMARY | ~2019-12-06 | XMS | Encounter Summary ---
Demographics + + + | Address | [address] | | | [place] [address] | + + + | Home Phone [...] Providers + +------+ + | Care Tax Collector Name | Role | Phone | [...] 2019 | | GASTROENTEROLOGY | [address], [place] | | | | | [address] [place] | [address] [place], [place] | | | | | [address] [place], [place] | [address] | | | | | [address] | | | | | | [phone] | | | +--------+ + + + [...] | | | | | [place] [address] | | | | | | [phone] | | | | | | | | +--------+---------+ + + + | 01/01/ | Office | Cardiology | [place], | | | 2019 | Visit | | PARISA Vernon [address] | | | | | | [place], | | | | | | [place] [address] | | | | | | [phone] | | | | | | | | +--------+---------+ + + + documented as of this encounter Visit Diagnoses Not on filedocumented in this encounter"
--- OUTSIDE RECORDS SUMMARY | ~2019-12-06 | XMS | Encounter Summary ---
Demographics + + + | Address | [address] | | | [place] [address] | + + + | Home Phone [...] | [facility] | | | [...] Providers + +------+ + | Care Instructor Ballroom Dancing Name | Role | Phone | + +------+ + | Kirk French MD | PCP | | + +------+ + Encounter Details +--------+ + + + + | Date | Type | Department | Care Team | Description | +--------+ + + + + | 06/03/ | Hospital | [facility] | Conversion | Back pain, | | 2014 | Encounter | CONVERSION DEP [address] | Transaction, | unspecified location | | | | [address] | Provider Unknown | | | | | [place], [place] | [phone] | | | | | [address] | (Fax) | | | | | [phone] | | | +--------+ + + + [...] + + + +---------+ + + | [place]-3 Fatty | CAPS, one capsule by [...] | | | | | | | #[id number], exp 07/2016 | | | | | [...] | | | | | [place] [address] | | | | | | [phone] | | | | | | | | +--------+---------+ + + + | 01/01/ | Office | Cardiology | [place], | | | 2019 | Visit | | PARISA [place] [address] | | | | | | [place], | | | | | | [place] [address] | | | | | | [phone] | | | | | | | [...]
--- OUTSIDE RECORDS SUMMARY | ~2019-12-06 | XMS | Encounter Summary ---
Demographics + + + | Address | [address] | | | [place] [address] | + + + | Home Phone [...] Providers + +------+ + | Care Electronic Equipment Installer Name | Role | Phone | [...] 2014 | | CARDIOLOGY [address] | SENIOR REPORT DEVELOPER [address] | | | | | [place], | [place], [place] | | | | | [place] [address] | [address] | | | | | [phone] | | | +--------+ + + + [...] | | | | | [place] [address] | | | | | | [phone] | | | | | | | | +--------+---------+ + + + | 01/01/ | Office | Cardiology | [place], | | | 2019 | Visit | | PARISA Vernon [address] | | | | | | [place], | | | | | | [place] [address] | | | | | | [phone] | | | | | | | | +--------+---------+ + + + documented as of this encounter Visit Diagnoses Not on filedocumented in this encounter"
--- OUTSIDE RECORDS SUMMARY | ~2019-12-06 | XMS | Encounter Summary ---
Demographics + + + | Address | [address] | | | [place] [address] | + + + | Home Phone [...] + +------+ + | Care Network Control Operator Name | Role | Phone [...] 2019 | | GASTROENTEROLOGY | [address], [place] | | | | | [address] [place] | [address] [place], [place] | | | | | [address] [place], [place] | [address] | | | | | [address] | | | | | | [phone] | | | +--------+ + + + [...] | | | | | [place] [address] | | | | | | [phone] | | | | | | | | +--------+---------+ + + + | 01/01/ | Office | Cardiology | [place], | | | 2019 | Visit | | PARISA Vernon [address] | | | | | | [place] | | | | | | [place] [address] | | | | | | [phone] | | | | | | | | +--------+---------+ + + + documented as of this encounter Visit Diagnoses Not on filedocumented in this encounter"
--- OUTSIDE RECORDS SUMMARY | ~2019-12-06 | XMS | Encounter Summary ---
Demographics + + + | Address | [address] | | | [place] [address] | + + + | Home Phone [...] Team Providers + +------+ + | Care Poiser Balance Name | Role | Phone | + +------+ + | Kirk French MD | PCP | | + +------+ + Encounter Details +--------+ + + + + | Date | Type | Department | Care Team | Description | +--------+ + + + + | 04/07/ | Hospital | [facility] | Pia Akhtar | Spinal stenosis of | | 2016 | Encounter | MED CTR XRAY [address] | MD [address] | lumbar region | | | | [place] | [address] | | | | | [place] [address] | [place] [address] | | | | | [phone] | [phone] | | | | | | | [...] + + + +---------+ + + | [place]-3 Fatty | CAPS, one capsule by | [...] | | | | | [place] [address] | | | | | | [phone] | | | | | | | | +--------+---------+ + + + | 01/01/ | Office | Cardiology | [place], | | | 2019 | Visit | | PARISA Vernon [address] | | | | | | [place] | | | | | | [place] [address] | | | | | | [phone] | | | | | | | [...] | | | | | thecal, Starting Tu04/07/16 at | | | | | | [...]
--- OUTSIDE RECORDS SUMMARY | ~2019-12-06 | XMS | Encounter Summary ---
Demographics + + + | Address | [address] | | | [place] [address] | + + + | Home Phone [...] Team Providers + +------+ + | Care Trustee Of Estate Name | Role | Phone | [...] | CARDIOLOGY [address] | MD [address] | | | | | [place], | [place], | | | | | [place] [address] | [place] [address] | | | | | [phone] | [phone] | | | | | | | [...] | | | | | | [place] [address] | | | | | | [phone] | | | | | | | | +--------+---------+ + + + | 01/01/ | Office | Cardiology | [place], | | | 2019 | Visit | | PARISA [place] [address] | | | | | | [place], | | | | | | [place] [address] | | | | | | [phone] | | | | | | | | +--------+---------+ + + + documented as of this encounter Visit Diagnoses Not on filedocumented in this encounter"
--- OUTSIDE RECORDS SUMMARY | ~2019-12-06 | XMS | Encounter Summary ---
Demographics + + + | Address | [address] | | | [place] [address] | + + + | Home Phone [...] Providers + +------+ + | Care Transfer Iron Operator Name | Role | Phone | [...] + + | 07/01/ | Hospital | [facility] | Scotty Galdamez, | DDD (degenerative | | 2018 | Encounter | MED CTR XRAY [address] | [address] | disc disease), | | | | [place] | [address] | lumbar; Chronic | | | | [place] [address] | [place] [address] | left-sided low back | | | | [phone] | [phone] | pain with left-sided | | | [...] [place] | | | | | | [place] [address] | | | | | | [phone] | | | | | | | | +--------+---------+ + + + | 01/01/ | Office | Cardiology | [place], | | | 2019 | Visit | | PARISA [place] [address] | | | | | | [place], | | | | | | [place] [address] | | | | | | [phone] | | | | | | | [...]
--- OUTSIDE RECORDS SUMMARY | ~2019-12-06 | XMS | Encounter Summary ---
Demographics + + + | Address | [address] | | | [place] [address] | + + + | Home Phone [...] Providers + +------+ + | Care Management Professionals Name | Role | Phone | + [...] [place] | | | | | | [address] | | | | | | [phone] | | | +--------+ + + + [...] | | | | | [place] [address] | | | | | | [phone] | | | | | | | | +--------+---------+ + + + | 01/01/ | Office | Cardiology | [place], | | | 2019 | Visit | | PARISA [place] [address] | | | | | | [place], | | | | | | [place] [address] | | | | | | [phone] | | | | | | | | +--------+---------+ + + + documented as of this encounter Visit Diagnoses Not on filedocumented in this encounter"
--- OUTSIDE RECORDS SUMMARY | ~2019-12-06 | XMS | Clinical Summary ---
Demographics + + + | Address | [address] | | | [place] [address] | + + + | Home Phone | | + + + | Preferred Language | Unknown | + + + | Marital Status | | + + + | Yazidism Affiliation | 1013 | + + + | Race | Unknown | + + + | Ethnic Group | Unknown | + + + Author + + + | Author | [employer] [facility] (Historical as of | | | 07-08-19) | + + + | Organization | [facility] (Historical as of | | | 07-08-19) [...] Team Providers + +------+ + | Care Compression Molding Machine Setter Name | Role | [...] + | AUTO INSURANCE | AUTO | [id number] | | | | | | INSURA | | | | | | | NCE | | | | | | | GENERI | | | | | | | C | | | | | + +--------+ +------+-------+ + | AUTO INSURANCE | AUTO | [id number] | | | | | | INSURA | [id number] | | | | | | NCE | | | | | | | GENERI | | | | | | | C | | | | | + +--------+ +------+-------+ + | MEDICARE | MEDICA | [id number] | | | [address] | | | RE | | | | [place], [place] [address] | | | IP-OP | | | | | + +--------+ +------+-------+ + | [facility] | GORDON | [id number] | | | | | | | [...] | Self | [birth year] | Home: | [address] | | | al/Fam | | 9 | [address]- | [address] [place], [place] | | | roxanne | | | [address] | [address] | + +--------+ +--------+ + + | AMILCAR GAY | Third | Self | [birth year] | Home: | [address] | | | Democrat | | 9 | +- | [place], [place] | | | Liabil | | | [address] | [address] | | | ity | | | | | + +--------+ +--------+ + + | AMILCAR GAY | Third | Self | [birth year] | Home: | [address] | | | Democrat | | 1960 | +- | [place], [place] | | | Liabil | | | [address] | [address] | | | ity | | | | | + +--------+ +--------+ + +
--- OUTSIDE RECORDS SUMMARY | ~2019-12-06 | XMS | Encounter Summary ---
Demographics + + + | Address | [address] | | | [place] [address] | + + + | Home Phone [...] Team Providers + +------+ + | Care Tab Cutter Name | Role | Phone | [...] | | | | CENTER [address] | [place] | (Primary Dx) | | 07/28/ | | [place] | [address] | | | 2017 | | [address] | | | | | | [phone] | | | +--------+ + + + [...] + + + +---------+ + + | [place]-3 Fatty | CAPS, one capsule by | [...] | | | | | | [place] [address] | | | | | | [phone] | | | | | | | | +--------+---------+ + + + | 01/01/ | Office | Cardiology | [place], | | | 2019 | Visit | | PARISA [place] [address] | | | | | | [place], | | | | | | [place] [address] | | | | | | [phone] | | | | | | | [...] W?MRN: | | | | | | [id number] | | | [id number] | | | his | | | [...] | | | ent/60 | | | [id number] | | | -5586- | | | [...] | | | St. | | | [place] | | | y | | | [...] | | | ext. | | | [address] | | | or go | | [...] | | | M.D. | | | Corporate Analyst | | | al | | | [...] | [address] | [place] | [phone] | | [facility] | | [address] | | | - LABORATORY | | [...] 14 | 7 - 18 mg/dL | [facility] | | | | | | [facility] | | | | | | MEDICAL | | | | | | CENTER - | | | | | | LABORATORY | | + + + + + + | Creatinine | 1.06 | 0.60 - 1.30 | [facility] | | | | | mg/dL | [facility] | | | | | | MEDICAL | | | | | | CENTER - | | | | | | LABORATORY | | + + + + + + | eGFR if not | >60Comment: GLOMERULAR | >=60 | [facility] | | | | FILTRATION | mL/min/1.73m2 | [facility] | | | URUGUAYAN | RATE,ESTIMATED | | MEDICAL | | | | mL/min/1.66e4Zoqm than | | CENTER - | | [...] [address] | [place] | [phone] | | [facility] | | [address] | | | - LABORATORY | | [...] [address] | [place] | [phone] | | [facility] | | [address] | | | - LABORATORY | | [...] | | | | ANGELA MARADIAGA MD ([id number]) | | | | | | on [...]
--- OUTSIDE RECORDS SUMMARY | ~2019-12-06 | XMS | Encounter Summary ---
Demographics + + + | Address | [address] | | | [place] [address] | + + + | Home Phone [...] Providers + +------+ + | Care Solar Sales Assessor Name | Role | Phone | [...] + + | 06/04/ | Hospital | [facility] | Sariah, | Cervical spinal | | 2016 | Encounter | MED CTR XRAY [address] | [place], [address] | stenosis | | | | [place] | [address] | | | | | [place] [address] | [place] [address] | | | | | [phone] | [phone] | | | | | | | [...] + + + +---------+ + + | [place]-3 Fatty | CAPS, one capsule by | [...] | | | | | [place] [address] | | | | | | [phone] | | | | | | | | +--------+---------+ + + + | 01/01/ | Office | Cardiology | [place], | | | 2019 | Visit | | Janeen, SALES NEGOTIATOR [address] | | | | | | [place], | | | | | | [place] [address] | | | | | | [phone] | | | | | | | [...] | | | | thecal, Starting Talia 7/14/16 at | | | | | | [...]
--- OUTSIDE RECORDS SUMMARY | ~2019-12-06 | XMS | Encounter Summary ---
Demographics + + + | Address | [address] | | | [place] [address] | + + + | Home Phone [...] Providers + +------+ + | Care Breaker Mechanic Name | Role | Phone | + +------+ + PCP | Unavailable | + +------+ + Encounter Details +--------+ + + + + | Date | Type | Department | Care Team | Description | +--------+ + + + + | 05/13/ | Hospital | [facility] | | | | 2007 | Encounter | MED CTR EMERGENCY | | | | | | [place] [address] | | | | | | [place] | | | | | | [address] | | | | | | [phone] | | | +--------+ + + + [...] | | | | | [place] [address] | | | | | | [phone] | | | | | | | | +--------+---------+ + + + | 01/01/ | Office | Cardiology | [place], | | | 2020 | Visit | | PARISA [place] [address] | | | | | | [place], | | | | | | [place] [address] | | | | | | [phone] | | | | | | | | +--------+---------+ + + + documented as of this encounter Visit Diagnoses Not on filedocumented in this encounter"
--- OUTSIDE RECORDS SUMMARY | ~2019-12-06 | XMS | Encounter Summary ---
Demographics + + + | Address | [address] | | | [place] [address] | + + + | Home Phone [...] Team Providers + +------+ + | Care Mathematics Instructor Name | Role | Phone | + +------+ + | Kirk French MD | PCP | | + +------+ + Encounter Details +--------+ + + + + | Date | Type | Department | Care Team | Description | +--------+ + + + + | 07/21/ | Hospital | [facility] | Daljit Singletary, | | | 2018 | Encounter | MED CTR NUCLEAR | MD [address] | | | | | MEDICINE [address] | [address] [place], | | | | | [place] | [place] [address] | | | | | [place] [address] | [phone] | | | | | [phone] | | | +--------+ + + + [...] + + + +---------+ + + | [place]-3 Fatty | CAPS, one capsule by | [...] | | | | | | [place] [address] | | | | | | [phone] | | | | | | | | +--------+---------+ + + + | 01/01/ | Office | Cardiology | [place], | | | 2019 | Visit | | PARISA [place] [address] | | | | | | [place], | | | | | | [place] [address] | | | | | | [phone] | | | | | | | [...] | | | | | | Starting [facility] 07/21/18 at 1224, For | | | | | | | 1 dose, Nuclear Medicine | | | | | | + +--------+ + +------+------+ +---+---+ | | | +---+---+ documented in this encounter"
--- OUTSIDE RECORDS SUMMARY | ~2019-12-06 | XMS | Encounter Summary ---
Demographics + + + | Address | [address] | | | [place] [address] | + + + | Home Phone [...] Providers + +------+ + | Care Guide Alpine Name | Role | Phone | + [...] [place] | | | | | [place], [place] | [address] | | | | | [address] | [place] [address] | | | | | [phone] | [phone] | | | | | | | [...] | | | | | [place] [address] | | | | | | [phone] | | | | | | | | +--------+---------+ + + + | 01/01/ | Office | Cardiology | [place]via, | | | 2019 | Visit | | PARISA [place] [address] | | | | | | [place], | | | | | | [place] [address] | | | | | | [phone] | | | | | | | [...] | | | | | Blvd;[place] [address] | | | | + + + [...] | | | | | Blvd;[place] [address] | | | | + + + [...] | at [facility];[address] | | | | | | [place] | | | | | | [address] | | | | + + + [...]
--- OUTSIDE RECORDS SUMMARY | ~2019-12-06 | XMS | Encounter Summary ---
Demographics + + + | Address | [address] | | | [place] [address] | + + + | Home Phone [...] Team Providers + +------+ + | Care Assayer Name | Role | Phone | + [...] | on | GASTROENTEROLOGY | [address], [place] | | | | | [address] [place] | [address] [place], [place] | | | | | [address] [place], [place] | [address] | | | | | [address] | | | | | | [phone] | | | +--------+ + + + [...] | | | | | | [place] [address] | | | | | | [phone] | | | | | | | | +--------+---------+ + + + | 01/01/ | Office | Cardiology | [place], | | | 2019 | Visit | | PARISA [place] [address] | | | | | | [place] | | | | | | [place] [address] | | | | | | [phone] | | | | | | | | +--------+---------+ + + + documented as of this encounter Visit Diagnoses Not on filedocumented in this encounter"
--- OUTSIDE RECORDS SUMMARY | ~2019-12-06 | XMS | Encounter Summary ---
Demographics + + + | Address | [address] | | | [place] [address] | + + + | Home Phone [...] Team Providers + +------+ + | Care Exhibitions And Collections Manager Name | Role | Phone | [...] MD | | | 2019 | | [facility] | [address], [place] | | | | | PATHOLOGY [address] | [address] [place], [place] | | | | | BLVD [place], [place] | [address] | | | | | [address] | | | | | | [phone] | | | +--------+ + + + [...] | | | | | [place] [address] | | | | | | [phone] | | | | | | | | +--------+---------+ + + + | 01/01/ | Office | Cardiology | [place], | | | 2019 | Visit | | PARISA [place] [address] | | | | | | [place], | | | | | | [place] [address] | | | | | | [phone] | | | | | | | [...] | | | (atherosclerotic heart disease of [place] coronary artery without | | | angina [...] chronic or | | | microscopic colitis. BES:[facility]:C3NR GROSS DESCRIPTION: A. The | | | specimen, labeled "Laura, duodenal biopsy" is received in formalin | | | and consists of seven 0.1-0.5 cm lin fragments. Entirely submitted in | | | (A1). B. The specimen, labeled "[place], right colon" is received | | | in formalin and consists of six 0.2-0.3 cm lin fragments. Entirely | | | submitted in (B1). C. The specimen, labeled "[place], left colon" | | | is received in formalin and consists of six 0.2-0.3 cm lin-pink | | | fragments. Entirely submitted in (C1). am:AMB:portillo PERFORMING | | | LABORATORY: The technical component was performed by [facility] | | | [employer] [address] [place] [address] (Aircraft Pilot: | | | Kailey Stafford MD; CLIA# [id number]). Professional interpretation was | | | performed by [facility], [facility], [facility] | | | [place] [phone] (Aircraft Pilot: [place] | Shanique Dao M.D.; LAYNE#: [id number]). Diagnostician: Ishaan Dao | | | Pathologist [...]
--- OUTSIDE RECORDS SUMMARY | ~2019-12-06 | XMS | Encounter Summary ---
Demographics + + + | Address | [address] | | | [place] [address] | + + + | Home Phone [...] Team Providers + +------+ + | Care Bias Cutter Name | Role | Phone | [...] Provider Unknown | | | | | [place], [place] | [phone] | | | | | [address] | | | | | | [phone] | | | +--------+ + + + [...] | | | | | | | #[id number], exp 07/2016 | | | | | [...] | | | | | [place] [address] | | | | | | [phone] | | | | | | | | +--------+---------+ + + + | 01/01/ | Office | Cardiology | [place], | | | 2019 | Visit | | [facility] [place] [address] | | | | | | [place] | | | | | | [place] [address] | | | | | | [phone] | | | | | | | [...]
--- OUTSIDE RECORDS SUMMARY | ~2019-12-06 | XMS | Encounter Summary ---
Demographics + + + | Address | [id number] [place] [address] [address] | | | [place] [address] | + + + | Home Phone [...] [place] | | | | | [address] | | + + + + + [...] | | | | ILA Crane | [facility] [place] | | | | | Mailcode: Center | [address] | | | | | for [facility] and | [phone] | | | | | [facility] [address] | | | | | | [place], [place] | | | | | | [address] | | | | | | [phone] | | | +--------+ + + + [...]
--- OUTSIDE RECORDS SUMMARY | ~2019-12-06 | XMS | Encounter Summary ---
Demographics + + + | Address | [address] | | | [place] [address] | + + + | Home Phone [...] | CARDIOLOGY [address] | [address] | reprogramming/check | | | | [place], | [place], | DO NOT DELETE | | | | [place] [address] | [place] [address] | (Primary Dx); | | | | [phone] | [phone] | Sinoatrial node | | | | [...] | | | | | [place] [address] | | | | | | [phone] | | | | | | | | +--------+---------+ + + + | 01/01/ | Office | Cardiology | [place], | | | 2019 | Visit | | PARISA [place] [address] | | | | | | [place] | | | | | | [place] [address] | | | | | | [phone] | | | | | | | [...] | MD Gemini 06/23/2016 16:09 PATIENT NAME: oMe Bradley | | | Laura : 1960: [...]
--- OUTSIDE RECORDS SUMMARY | ~2019-12-06 | XMS | Encounter Summary ---
Demographics + + + | Address | [address] | | | [place] [address] | + + + | Home Phone [...] Team Providers + +------+ + | Care Kitchen And Counter Worker Name | Role | Phone | [...] + | 06/26/ | Office | [facility] | [place], | Diplopia (Primary | | 2012 | Visit | [facility] | [address] | Dx); Symptomatic | | | | [address] | [place], [place] | PVCs; Hypertension | | | | [place], [place] | [address] | | | | | [address] | | | | | | [phone] | | | +--------+---------+ + + + [...] Double vision will affect your ability to ent surgeon distance. This means it will be harder [...] or, difficulty with vision, speech or walking [address] [place] [address]. All rights reserve d. This information is [...] from his pain clinic visit in the [facility] on Wednesday or he developed double [...] double vision. He was evaluated by Dr [place] and had a normal eye exam, nor [...] tablet by mouth Daily. 30 tablet 6 [place]-3 Fatty Acids (SALMON OIL-1000 PO) CAPS, one [...] | | | | | [place] [address] | | | | | | [phone] | | | | | | | | +--------+---------+ + + + | 01/01/ | Office | Cardiology | [place]via, | | | 2019 | Visit | | PARISA [place] [address] | | | | | | [place] | | | | | | [place] [address] | | | | | | [phone] | | | | | | | [...] + | [facility] | [address] | [place], [place] | [phone] | | [facility] | | [address] | | | - LABORATORY | | | | + + + + + | [facility] | [address] | [place], [place] | | | [facility] | | [address] | | | - LABORATORY | | [...] + | [facility] | [address] | [place] | [phone] | | [facility] | | [address] | | | - LABORATORY | | | | + + + + + | [facility] | [address] | [place] | | | [facility] | | [address] | | | - LABORATORY | | [...] on the Javid | uIU/mL | [facility] | | | | Aldo Access [...] + | [facility] | [address] | [place], [place] | [phone] | | [facility] | | [address] | | | - LABORATORY | | | | + + + + + | [facility] | [address] | [place] | | | [facility] | | [address] | | | - LABORATORY | | | | + + + + + documented in this encounter Visit Diagnoses + + | Diagnosis | + + | Diplopia - Primary | + + | Symptomatic PVCs Other premature beats | + + | Hypertension Unspecified essential hypertension | + + documented in this encounter
--- OUTSIDE RECORDS SUMMARY | ~2019-12-06 | XMS | Encounter Summary ---
Demographics + + + | Address | [address] | | | [place] [address] | + + + | Home Phone [...] Providers + +------+ + | Care Surgical First Assistant Name | Role | Phone | + +------+ + PCP | Unavailable | + +------+ + Encounter Details +--------+ + + + + | Date | Type | Department | Care Team | Description | +--------+ + + + + | 02/01/ | [facility] | [facility] | Evan Gandara MD | | | 2008 - | Encounter | MED CTR MED ONC | [address] [facility] | | | | | [address] [place] | [place] | | | 02/06/ | | [place] [address] | [address] | | | 2008 | | [phone] | | | +--------+ + + + [...] | | | | | [place] [address] | | | | | | [phone] | | | | | | | | +--------+---------+ + + + | 01/01/ | Office | Cardiology | [place], | | | 2020 | Visit | | PARISA [place] [address] | | | | | | [place], | | | | | | [place] [address] | | | | | | [phone] | | | | | | | | +--------+---------+ + + + documented as of this encounter Visit Diagnoses Not on filedocumented in this encounter"
--- OUTSIDE RECORDS SUMMARY | ~2019-12-06 | XMS | Encounter Summary ---
Demographics + + + | Address | [address] | | | [place] [address] | + + + | Home Phone [...] Providers + +------+ + | Care Handle Assembler Name | Role | Phone | + +------+ + | Michael Amanda DO | PCP | | + +------+ + Encounter Details +--------+ + + + + | Date | Type | Department | Care Team | Description | +--------+ + + + + | 09/22/ | Hospital | [facility] | Bahman Gant MD | | | 2012 | Encounter | MED CTR XRAY [address] | [address] [place] | | | | | [place] | [address] [place], | | | | | [place] [address] | [place] [address] | | | | | [phone] | [phone] | | | | | | | [...] + + +---------+ + + | [place]-3 Fatty | CAPS, one capsule by [...] | | | | | [place] [address] | | | | | | [phone] | | | | | | | | +--------+---------+ + + + | 01/01/ | Office | Cardiology | [place], | | | 2019 | Visit | | PARISA [place] [address] | | | | | | [place] | | | | | | [place] [address] | | | | | | [phone] | | | | | | | | +--------+---------+ + + + documented as of this encounter Visit Diagnoses Not on filedocumented in this encounter"
--- OUTSIDE RECORDS SUMMARY | ~2019-12-06 | XMS | Encounter Summary ---
Demographics + + + | Address | [address] | | | [place] [address] | + + + | Home Phone [...] Providers + +------+ + | Care Gas Appliance Installer Name | Role | Phone | [...] + + | 08/30/ | Refill | [facility] | Kirk French | Medication Refill | | 2019 | | [facility] | MD Brea [address] | | | | | [facility] [address] [address] | | | | | [address] | [place] [address] | | | | | [place], [place] | [phone] | | | | | [address] | | | | | | [phone] | | | +--------+--------+ + + + [...] | | | | | [place] [address] | | | | | | [phone] | | | | | | | | +--------+---------+ + + + | 01/01/ | Office | Cardiology | [place], | | | 2019 | Visit | | PARISA [place] [address] | | | | | | [place] | | | | | | [place] [address] | | | | | | [phone] | | | | | | | | +--------+---------+ + + + documented as of this encounter Visit Diagnoses Not on filedocumented in this encounter"
--- OUTSIDE RECORDS SUMMARY | ~2019-12-06 | XMS | Encounter Summary ---
Demographics + + + | Address | [address] | | | [place] [address] | + + + | Home Phone [...] Providers + +------+ + | Care It Systems Administrator Name | Role | Phone [...] + | 01/24/ | Telephone | [facility] | Daljit Singletary, | Other | | 2019 | | CARDIOLOGY [address] | MD [address] [place] | | | | | [place], | [place], | | | | | [place] [address] | [place] [address] | | | | | [phone] | [phone] | | | | | | | [...] | | | | | [place] [address] | | | | | | [phone] | | | | | | | | +--------+---------+ + + + | 01/01/ | Office | Cardiology | [place], | | | 2019 | Visit | | PARISA [place] [address] | | | | | | [place] | | | | | | [place] [address] | | | | | | [phone] | | | | | | | | +--------+---------+ + + + documented as of this encounter Visit Diagnoses Not on filedocumented in this encounter"
--- OUTSIDE RECORDS SUMMARY | ~2019-12-06 | XMS | Encounter Summary ---
Demographics + + + | Address | [address] | | | [place] [address] | + + + | Home Phone [...] Team Providers + +------+ + | Care Integration Software Engineer Name | Role | Phone [...] + + | 01/25/ | Office | [facility] | Daljit Singletary, | Other chest pain | | 2012 | Visit | CARDIOLOGY [address] | [address] | (Primary Dx); PVC's | | | | [place], | [place], | (premature | | | | [place] [address] | [place] [address] | ventricular | | | | [phone] | [phone] | contractions) | | | | | [...] note, lorraine painting has appointment to see experience specialist for PVCs ablations consultation on January [...] tablet Take 1,000 mg by mouth Daily. [place]-3 Fatty Acids (SALMON OIL-1000 PO) CAPS, one [...] tablet Take 1,000 mg by mouth Daily. [place]-3 Fatty Acids (SALMON OIL-1000 PO) CAPS, one [...] | | | | | [place] [address] | | | | | | [phone] | | | | | | | | +--------+---------+ + + + | 01/01/ | Office | Cardiology | [place], | | | 2019 | Visit | | PARISA [place] [address] | | | | | | [place] | | | | | | [place] [address] | | | | | | [phone] | | | | | | | [...]
--- OUTSIDE RECORDS SUMMARY | ~2019-12-06 | XMS | Encounter Summary ---
Demographics + + + | Address | [address] | | | [place] [address] | + + + | Home Phone [...] Providers + +------+ + | Care Senior Health Physics Technician Name | Role | Phone | [...] | | CARDIOLOGY [address] | MEDICAL FRONT DESK SPECIALIST [address] | edema and chest | | | | [place], | [facility] [place] | pain) | | | | [place] [address] | [address] | | | | | [phone] | | | +--------+ + + + [...] | | | | | [place] [address] | | | | | | [phone] | | | | | | | | +--------+---------+ + + + | 01/01/ | Office | Cardiology | [place], | | | 2019 | Visit | | PARISA [place] [address] | | | | | | [place] | | | | | | [place] [address] | | | | | | [phone] | | | | | | | | +--------+---------+ + + + documented as of this encounter Visit Diagnoses Not on filedocumented in this encounter"
--- OUTSIDE RECORDS SUMMARY | ~2019-12-06 | XMS | Encounter Summary ---
Demographics + + + | Address | [address] | | | [place] [address] | + + + | Home Phone [...] | [place] | [place] | | | | | [address] | [address] | | | | | [phone] | | | +--------+ + + + [...] | | | | | [place] [address] | | | | | | [phone] | | | | | | | | +--------+---------+ + + + | 01/01/ | Office | Cardiology | [place], | | | 2019 | Visit | | PARISA [place] [address] | | | | | | [place] | | | | | | [place] [address] | | | | | | [phone] | | | | | | | | +--------+---------+ + + + documented as of this encounter Visit Diagnoses Not on filedocumented in this encounter"
--- OUTSIDE RECORDS SUMMARY | ~2019-12-06 | XMS | Encounter Summary ---
Demographics + + + | Address | [address] | | | [place] [address] | + + + | Home Phone [...] Providers + +------+ + | Care Coke Drawer Name | Role | Phone | + +------+ + | Michael Amanda DO | PCP | | + +------+ + Encounter Details +--------+ + + + + | Date | Type | Department | Care Team | Description | +--------+ + + + + | 04/03/ | Hospital | [facility] | Jay Gambino MD | | | 2012 - | Encounter | HEART MED CTR | [address] | | | | | CARDIAC TRANSPLANT | [address] [place] | | | 04/04/ | | [address] | [place] [address] | | | 2012 | | [place] | [phone] | | | | | [address] | | | | | | [phone] | | | +--------+ + + + [...] 1960 ADMISSION DATE: 04/03/2013 DISCHARGE DATE: 04/04/2013 [id number] / [id number] ADMISSION DIAGNOSES: 1. Symptomatic premature ventricular contractions [...] study and ablati on. MOE GAY ADM:04/03/13 [id number] 04/04/13 [place] DISCHARGE SUMMARY [id number] LOCATED WITHIN [facility] PARISA Hughes [facility] MD Meena Pleitez THIS REPORT IS CONFIDENTIAL AND NOT TO BE RELEASED WITHOUT PROPER AUTHORIZATION. [facility] Mr. Gay was taken to [...] 180 mg once daily. MOE GAY ADM:04/03/13 [id number] 04/04/13 DIS [place] DISCHARGE SUMMARY [id number] LOCATED WITHIN [facility] PARISA Hughes [facility] MD Meena Pleitez THIS REPORT IS CONFIDENTIAL AND NOT TO BE RELEASED WITHOUT PROPER AUTHORIZATION. [facility] 5. Docusate sodium 2 tablets once daily. 6. Marinol 10 mg twice daily. 7. Metoprolol succinate 200 mg once daily. 8. Oxycodone 10 mg 10 mg oral as needed. 9. Oxycodone 30 mg oral twice daily. 10. Pravastatin 40 mg at bedtime. 11. Promethazine 25 mg as needed. 12. Ranitidine 1 to 2 tablets once daily. 13. [place] oil 2 tablets twice daily. 14. Valacyclovir 500 mg once daily. There were no new medications or medication dosage changes at time of discharge. PLAN: 1. Mr. Gay will be discharged home on medications as noted above, including his usual m edications of diltiazem and metoprolol. 2. He will be seen and followed by Dr. Gambino on 16 at 9:00 a.m. at [facility], [address]. 3. He will contact our office earlier than scheduled appointment should he have any diffic ulty prior to that time. PARISA Hughes MD A P RICHIE/med #[id number] cc: MD Dona Pleitez ARNP Suwong Wongsuwan, MD Electronically Signed 04/12/13 1400 PARISA Hughes Electronically Signed 05/22/13 1245 Jay Gambino MD MOE GAY ADM:04/03/13 [id number] 04/04/13 DIS [place] DISCHARGE SUMMARY [id number] LOCATED WITHIN [facility] PARISA Hughes ES [facility] Jay Gambino MD R THIS REPORT IS CONFIDENTIAL AND NOT TO BE RELEASED WITHOUT PROPER AUTHORIZATION.Electronica lly signed by Jael Brown at 05/22/2013 1:25 PM Dona Grossman ARNP - 04/04/2013 9:05 AM PDT PATIENT NAME: MOE GAY Sex/Age: M / 53Y : 1960 ADMISSION DATE: 04/03/2013 DISCHARGE DATE: 04/04/2013 [id number] / [id number] ADMISSION DIAGNOSES: 1. Symptomatic premature ventricular contractions [...] and ablati on. MOE GAY Jaimee ADM:04/03/13 [id number] 04/04/13 [place] DISCHARGE SUMMARY [id number] LOCATED WITHIN [facility] PARISA Hughes [facility] MD Meena Pleitez THIS REPORT IS CONFIDENTIAL AND NOT TO BE RELEASED WITHOUT PROPER AUTHORIZATION. [facility] Mr. Gay was taken to [...] 180 mg once daily. MOE GAY ADM:04/03/13 [id number] 04/04/13 DIS [place] DISCHARGE SUMMARY [id number] LOCATED WITHIN [facility] PARISA Hughes [facility] MD Meena Pleitez THIS REPORT IS CONFIDENTIAL AND NOT TO BE RELEASED WITHOUT PROPER AUTHORIZATION. [facility] 5. Docusate sodium 2 tablets once daily. 6. Marinol 10 mg twice daily. 7. Metoprolol succinate 200 mg once daily. 8. Oxycodone 10 mg 10 mg oral as needed. 9. Oxycodone 30 mg oral twice daily. 10. Pravastatin 40 mg at bedtime. 11. Promethazine 25 mg as needed. 12. Ranitidine 1 to 2 tablets once daily. 13. [place] oil 2 tablets twice daily. 14. Valacyclovir 500 mg once daily. There were no new medications or medication dosage changes at time of discharge. PLAN: 1. Mr. Gay will be discharged home on medications as noted above, including his usual m edications of diltiazem and metoprolol. 2. He will be seen and followed by Dr. Gambino on 16 at 9:00 a.m. at [facility], [address]. 3. He will contact our office earlier than scheduled appointment should he have any diffic ulty prior to that time. PARISA Hughes MD A P RICHIE/med #[id number] cc: MD Dona Pleitez ARNP Suwong Wongsuwan, MD Electronically Signed 04/12/13 1400 PARISA Hughes MOE GAY ADM:04/03/13 [id number] 04/04/13 [place] DISCHARGE SUMMARY [id number] LOCATED WITHIN [facility] PARISA Hughes [facility] MD Meena Pleitez THIS REPORT [...] + + + +---------+ + + | [place]-3 Fatty | CAPS, one capsule by | [...] | | | | | [place] [address] | | | | | | [phone] | | | | | | | | +--------+---------+ + + + | 01/01/ | Office | Cardiology | [place], | | | 2020 | Visit | | PARISA [place] [address] | | | | | | [place], | | | | | | [place] [address] | | | | | | [phone] | | | | | | | [...] + | Glucose | 94Comment: [place] | 65 - 99 mg/dL | [facility] [...] + + | YESSY JONES | [address] | [place] [address] | | | [facility] | | | | | LABORATORY | [...] + + | YESSY JONES | [address] | [place] [address] | | | [facility] | | | | | LABORATORY | | | | + + + + + documented in this encounter Visit Diagnoses Not on filedocumented in this encounter"
--- OUTSIDE RECORDS SUMMARY | ~2019-12-06 | XMS | Encounter Summary ---
Demographics + + + | Address | [address] | | | [place] [address] | + + + | Home Phone [...] Providers + +------+ + | Care Boiler Plant Operator Name | Role | Phone [...] | (Primary Dx); | | | | [place], | [place], | Bradycardia; HTN | | | | [place] [address] | [place] [address] | (hypertension) | | | | [phone] | [phone] | | | | | | | [...] at which time patient was going to [place] for admissions specialist co nsult and PVC ablation. Since [...] tablet Take 1,000 mg by mouth Daily. [place]-3 Fatty Acids (SALMON OIL-1000 PO) CAPS, one [...] to go back in 3 days to [place] for an attempt of ablation under general [...] He is in a class II of [place] Heart Ass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 There is no [...] been encouraged to keep his appointment with admissions specialist this coming y to attempt ablation therapy. 4. Follow up appointment in 4-6 weeks. I, PARISA Russell, saw this patient under the direct supervision of Daljit Singletary MD Portions of this report were transcribed using voice recognition software. Every effort wa s made to ensure accuracy; however, inadvertent computerized contract administrative assistant errors may be pre sent. documented [...] | | | | | [place] [address] | | | | | | [phone] | | | | | | | | +--------+---------+ + + + | 01/01/ | Office | Cardiology | [place]via, | | | 2019 | Visit | | PARISA [place] [address] | | | | | | [place], | | | | | | [place] [address] | | | | | | [phone] | | | | | | | [...]
--- OUTSIDE RECORDS SUMMARY | ~2019-12-06 | XMS | Encounter Summary ---
Demographics + + + | Address | [address] | | | [place] [address] | + + + | Home Phone [...] Providers + +------+ + | Care Senior Java Programmer Name | Role | Phone | [...] | 02/15/ | Office | [facility] | [place], | Symptomatic PVCs | | 2012 | Visit | CARDIOLOGY [address] | PARISA [place] [address] | (Primary Dx); | | | | [place], | [place], | Bradycardia; HTN | | | | [place] [address] | [place] [address] | (hypertension) | | | | [phone] | [phone] | | | | | | | [...] at which time patient was going to [place] for destination specialist co nsult and PVC ablation. Since [...] tablet Take 1,000 mg by mouth Daily. [place]-3 Fatty Acids (SALMON OIL-1000 PO) CAPS, [...] performed by Dr. Gambino at [facility] on 01/30/2013. Patient had spontaneous [...] to go back in 3 days to [place] for an attempt of ablation under general [...] He is in a class II of [place] Heart Ass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 There is no [...] been encouraged to keep his appointment with destination specialist this coming y to attempt ablation therapy. 4. Follow up appointment in 4-6 weeks. I, PARISA Russell, saw this patient under the direct supervision of Daljit Singletary MD Portions of this report were transcribed using voice recognition software. Every effort wa s made to ensure accuracy; however, inadvertent computerized power checker errors may be pre sent. documented in [...] | | | | | [place] [address] | | | | | | [phone] | | | | | | | | +--------+---------+ + + + | 01/01/ | Office | Cardiology | Silvia, | | | 2019 | Visit | | PARISA [place] [address] | | | | | | [place], | | | | | | [place] [address] | | | | | | [phone] | | | | | | | [...]
--- OUTSIDE RECORDS SUMMARY | ~2019-12-06 | XMS | Encounter Summary ---
Demographics + + + | Address | [address] | | | [place] [address] | + + + | Home Phone [...] + + + + | 01/27/ | [facility] | [facility] | Jonathan, | | | 2008 | Encounter | MED CTR EMERGENCY | Martell Cr MD [address] | | | | | CENTER [address] | [place] | | | | | [place] | [place] [address] | | | | | [address] | [phone] | | | | | [phone] | | | +--------+ + + + [...] | | | | | [place], [place] [address] | | | | | | [phone] | | | | | | | | +--------+---------+ + + + | 01/01/ | Office | Cardiology | [place]via, | | | 2020 | Visit | | PARISA [place] [address] | | | | | | [place], | | | | | | [place] [address] | | | | | | [phone] | | | | | | | | +--------+---------+ + + + documented as of this encounter Visit Diagnoses Not on filedocumented in this encounter"
--- OUTSIDE RECORDS SUMMARY | ~2019-12-06 | XMS | Encounter Summary ---
Demographics + + + | Address | [address] | | | [place] [address] | + + + | Home Phone [...] + +------+ + | Care Director Of Events Name | Role | Phone | + [...] 2016 | | CARDIOLOGY [address] | PATHOLOGY SUPERVISOR [address] | | | | | [place], | [place], [place] | | | | | [place] [address] | [address] | | | | | [phone] | | | +--------+--------+ + + + [...] [place] | | | | | | [place] [address] | | | | | | [phone] | | | | | | | | +--------+---------+ + + + | 01/01/ | Office | Cardiology | [place]via, | | | 2019 | Visit | | PARISA [place] [address] | | | | | | [place], | | | | | | [place] [address] | | | | | | [phone] | | | | | | | | +--------+---------+ + + + documented as of this encounter Visit Diagnoses Not on filedocumented in this encounter"
--- OUTSIDE RECORDS SUMMARY | ~2019-12-06 | XMS | Encounter Summary ---
Demographics + + + | Address | [address] | | | [place] [address] | + + + | Home Phone [...] Team Providers + +------+ + | Care Burn Out Tender Lace Name | Role | Phone | + [...] | CARDIOLOGY [address] | [address] [place] | Interrogation | | | | [place], | [place], | (Primary Dx); | | | | [place] [address] | [place] [address] | Presence of | | | | [phone] | [phone] | permanent cardiac | | | | [...] | | | | | [place] [address] | | | | | | [phone] | | | | | | | | +--------+---------+ + + + | 01/01/ | Office | Cardiology | [place] | | | 2019 | Visit | | PARISA [place] [address] | | | | | | [place], | | | | | | [place] [address] | | | | | | [phone] | | | | | | | [...] scanned into | | | [facility] for remote interrogation results. Data collected by [...]
--- OUTSIDE RECORDS SUMMARY | ~2019-12-06 | XMS | Encounter Summary ---
Demographics + + + | Address | [address] | | | [place] [address] | + + + | Home Phone [...] Providers + +------+ + | Care Inventory Analyst Name | Role | Phone | [...] | 12/09/ | Telephone | [facility] | Emmanuel Daniel MD | Appointment (EGD, | | 2017 | | GASTROENTEROLOGY | [address], [place] | colon Rescheduled to | | | | [address] [place] | [address] [place] | December 24 due to | | | | [address] [place] | [id number] | illness) | | | | [address] | | | | | | [phone] | | | +--------+ + + + [...] | | | | | [place] [address] | | | | | | [phone] | | | | | | | | +--------+---------+ + + + | 01/01/ | Office | Cardiology | [place]via, | | | 2019 | Visit | | PARISA [place] [address] | | | | | | [place], | | | | | | [place] [address] | | | | | | [phone] | | | | | | | | +--------+---------+ + + + documented as of this encounter Visit Diagnoses Not on filedocumented in this encounter"
--- OUTSIDE RECORDS SUMMARY | ~2019-12-06 | XMS | Encounter Summary ---
Demographics + + + | Address | [address] | | | [place] [address] | + + + | Home Phone [...] + + | 02/15/ | Office | [facility] | Jay Cohn PA | DIDIER (obstructive | | 2012 | Visit | SLEEP DISORDER [address] | [address] | sleep apnea) | | | | [address] [place] | [place] | (Primary Dx) | | | | [place] [address] | [address] | | | | | [phone] | | | +--------+---------+ + + + [...] AM PDTGo to [facility] for replacement equipment including: Nasal pillows [...] pillows obtained from: [facility] [place] pressure is: 13 cm CPAP download shows [...] to go to [facility] in [place] to replace his equipment, but it had [...] to go to [facility] in [place] to g et a new mask and filter. He is to work toward wearing his CPAP 100% of the time he is asle ep. I will follow up again in 1 month, sooner prn. Fifteen minutes were spent [id number], wi th the majority of time spent [...] | | | | | [place] [address] | | | | | | [phone] | | | | | | | | +--------+---------+ + + + | 01/01/ | Office | Cardiology | [place], | | | 2019 | Visit | | PARISA [address] | | | | | | [place], | | | | | | [place] [address] | | | | | | [phone] | | | | | | | | +--------+---------+ + + + documented as of this encounter Visit Diagnoses + + | Diagnosis | + + | DIDIER (obstructive sleep apnea) - Primary Obstructive sleep apnea (adult) (pediatric) | + + documented in this encounter"
--- OUTSIDE RECORDS SUMMARY | ~2019-12-06 | XMS | Encounter Summary ---
Demographics + + + | Address | [address] [place] [address] [address] | | | [place] [address] | + + + | Home Phone [...] [place] | | | | | [address] | | + + + + + [...] | | | | ILA [address]ane | [place], [place] | | | | | Mailcode: [place] | [address] | | | | | for Health and | [phone] | | | | | [facility] | | | | | | [place], [place] | | | | | | [address] | | | | | | [phone] | | | +--------+ + + + [...]
--- OUTSIDE RECORDS SUMMARY | ~2019-12-06 | XMS | Encounter Summary ---
Demographics + + + | Address | [address] | | | [place] [address] | + + + | Home Phone [...] Providers + +------+ + | Care Tax Economist Name | Role | Phone | + +------+ + PCP | Unavailable | + +------+ + Encounter Details +--------+ + + + + | Date | Type | Department | Care Team | Description | +--------+ + + + + | 03/08/ | [facility] | [facility] | Emmanuel Daniel MD | | | 2006 | Encounter | MED CTR GENERIC OP | [address] | | | | | CONV DEPT [address] | [address] [place] | | | | | [place], | [address] | | | | | [place] [address] | | | | | | [phone] | | | +--------+ + + + [...] | | | | | [place] [address] | | | | | | [phone] | | | | | | | | +--------+---------+ + + + | 01/01/ | Office | Cardiology | Silvia, | | | 2020 | Visit | | PARISA [place] [address] | | | | | | [place], | | | | | | [place] [address] | | | | | | [phone] | | | | | | | | +--------+---------+ + + + documented as of this encounter Visit Diagnoses Not on filedocumented in this encounter"
--- OUTSIDE RECORDS SUMMARY | ~2019-12-06 | XMS | Encounter Summary ---
Demographics + + + | Address | [address] | | | [place] [address] | + + + | Home Phone [...] Providers + +------+ + | Care Metal Leaf Layer Name | Role | Phone | [...] [place], [place] | | | | | [place] | | [address] Phone: | | | | | CYSTO/URETER | | [phone] | | | | | O | | Fax: | | | | | W/LITHOTRIPS | | [phone] | | | | | Y &INDWELL [...] + + | 04/13/ | Surgery | [facility] | Matthew Uriarte | Cystoscopy, Left | | 2018 | | MED CTR OR INTRA OP | Dahl, MD [address] | ureteroscopy with | | | | [address] | [place] | laser lithotripsy, | | | | [place] | [address] | Left ureteral stent | | | | [address] | | placement | | | | [phone] | | | +--------+---------+ + + + [...] Care Everywhere.Kidney Stones, Treating: Ureteroscopic Stone Removal (Ugandan)Stents, Ureteral (Ugandan)documented in this encounter Medications at Time of [...] + + + +---------+ + + | [place]-3 Fatty | CAPS, one capsule by | [...] | | | | | [place] [address] | | | | | | [phone] | | | | | | | | +--------+---------+ + + + | 01/01/ | Office | Cardiology | Silvia, | | | 2019 | Visit | | PARISA [place] [address] | | | | | | [place] | | | | | | [place] [address] | | | | | | [phone] | | | | | | | [...] [facility] | | | | | | at:[phone]. | | | | + + + [...] [address], | REFERENCE LAB | | [place], [place] [address] Centrifugal Operator: Yeny Rios MD, Phone: | ARSH CASTANON | | [phone] | | + + + + + + + + | Performing | Address | City/State/Zipcode | Phone Number | | Organization | | | | + + + + + | REFERENCE LAB | [address] | [place] [address] | [phone] | | [facility] | Drive [...] [address] | [place] | [phone] | | [facility] | | [address] | | | - LABORATORY | | [...] | [address] | [place], [place] | [phone] | | [facility] | | [address] | | | - LABORATORY | | [...] | [address] | [place], [place] | [phone] | | [facility] | | [address] | | | - LABORATORY | | [...] [address] | [place] | [phone] | | [facility] | | [address] | | | - LABORATORY | | [...] | 0.92 | 0.70 - 1.30 | [facility] | | | | | mg/dL | [...] | | MEDICAL | | | | mL/min/1.47j1Dwfx than | | CENTER - | | [...] [address] | [place] | [phone] | | [facility] | | [address] | | | - LABORATORY | | [...] day), First | | | dose on [facility] 04/13/19 at 1400, | | | Start 8 hours after pre-op dose., | | | Post-op/Phase II | | + +---+ | | | + +---+ | albuterol 2.5 mg/3 mL nebulizer | | | solution 2.5 mg 2.5 mg, | | | Nebulization, ONCE PRN, Wheezing, | | | Starting [facility] 04/13/19 at 0917, | | | [...] HR < 40, | | | Starting [facility] 04/13/19 at 0917, For | | | [...] | | | | | | | kwdjld-ymk-axjpf use of at least | | | [...]
--- OUTSIDE RECORDS SUMMARY | ~2019-12-06 | XMS | Encounter Summary ---
Demographics + + + | Address | [address] | | | [place] [address] | + + + | Home Phone [...] Team Providers + +------+ + | Care Skip Miner Name | Role | Phone | [...] Provider Unknown | | | | | [place], [place] | [phone] | | | | | [address] | | | | | | [phone] | | | +--------+ + + + [...] | | | | | | | #[id number], exp 07/2016 | | | | | [...] | | | | | [place] [address] | | | | | | [phone] | | | | | | | | +--------+---------+ + + + | 01/01/ | Office | Cardiology | Silvia, | | | 2019 | Visit | | PARISA [place] [address] | | | | | | [place] | | | | | | [place] [address] | | | | | | [phone] | | | | | | | [...]
--- OUTSIDE RECORDS SUMMARY | ~2019-12-06 | XMS | Encounter Summary ---
Demographics + + + | Address | [address] | | | [place] [address] | + + + | Home Phone [...] +------+ + | Care Human Resources Operations Director Name | Role | Phone [...] CARDIOLOGY [address] | MD [address] | Dx); SINUS | | | | [place], | [place], | [place] | | | | [place] [address] | [place] [address] | | | | | [phone] | [phone] | | | | | | | [...] | | | | | [place] [address] | | | | | | [phone] | | | | | | | | +--------+---------+ + + + | 01/01/ | Office | Cardiology | Silvia, | | | 2019 | Visit | | PARISA [place] [address] | | | | | | [place], | | | | | | [place] [address] | | | | | | [phone] | | | | | | | | +--------+---------+ + + + documented as of this encounter Visit Diagnoses + + | Diagnosis | + + | Chest pain - Primary Chest pain, unspecified | + + | SINUS BRADYCARDIA Sinoatrial node dysfunction | + + documented in this encounter
--- OUTSIDE RECORDS SUMMARY | ~2019-12-06 | XMS | Encounter Summary ---
Demographics + + + | Address | [address] | | | [place] [address] | + + + | Home Phone [...] Team Providers + +------+ + | Care Smt Machine Operator Name | Role | Phone [...] | 10/26/ | Refill | [facility] | Kirk French | Medication Refill | | 2019 | | GASTROENTEROLOGY | MD Bre[address] | | | | | [address] | [address] | | | | | [address] [place], [place] | [place] [address] | | | | | [address] | [phone] | | | | | [phone] | | | +--------+--------+ + + + [...] | | | | | [place] [address] | | | | | | [phone] | | | | | | | | +--------+---------+ + + + | 01/01/ | Office | Cardiology | Silvia, | | | 2019 | Visit | | PARISA [address] | | | | | | [place] | | | | | | [place] [address] | | | | | | [phone] | | | | | | | | +--------+---------+ + + + documented as of this encounter Visit Diagnoses Not on filedocumented in this encounter"
--- OUTSIDE RECORDS SUMMARY | ~2019-12-06 | XMS | Encounter Summary ---
Demographics + + + | Address | [address] | | | [place] [address] | + + + | Home Phone [...] Providers + +------+ + | Care Shop Manager Name | Role | Phone | + +------+ + PCP | Unavailable | + +------+ + Encounter Details +--------+ + + + + | Date | Type | Department | Care Team | Description | +--------+ + + + + | 06/17/ | Hospital | [facility] | | | | 2007 | Encounter | MED CTR EMERGENCY | | | | | | [place] [address] | | | | | | [place] | | | | | | [address] | | | | | | [phone] | | | +--------+ + + + [...] | | | | | [place] [address] | | | | | | [phone] | | | | | | | | +--------+---------+ + + + | 01/01/ | Office | Cardiology | Silvia, | | | 2020 | Visit | | PARISA [place] [address] | | | | | | [place], | | | | | | [place] [address] | | | | | | [phone] | | | | | | | | +--------+---------+ + + + documented as of this encounter Visit Diagnoses Not on filedocumented in this encounter"
--- OUTSIDE RECORDS SUMMARY | ~2019-12-06 | XMS | Encounter Summary ---
Demographics + + + | Address | [address] | | | [place] [address] | + + + | Home Phone [...] Providers + +------+ + | Care Medical Reception Name | Role | Phone | + [...] | Telephone | [facility] [place] | [place], | Other (not feeling | | 2013 | | [place] [address] | [address] [address] | [place]) | | | | [place], | [place], | | | | | [place] [address] | [place] [address] | | | | | [phone] | [phone] | | | | | | | [...] | | | | | [place] [address] | | | | | | [phone] | | | | | | | | +--------+---------+ + + + | 01/01/ | Office | Cardiology | Silvia, | | | 2019 | Visit | | PARISA [place] [address] | | | | | | [place], | | | | | | [place] [address] | | | | | | [phone] | | | | | | | | +--------+---------+ + + + documented as of this encounter Visit Diagnoses Not on filedocumented in this encounter"
--- OUTSIDE RECORDS SUMMARY | ~2019-12-06 | XMS | Encounter Summary ---
Demographics + + + | Address | [address] | | | [place] [address] | + + + | Home Phone [...] Providers + +------+ + | Care Database Engineer Name | Role | Phone | + +------+ + PCP | Unavailable | + +------+ + Encounter Details +--------+ + + + + | Date | Type | Department | Care Team | Description | +--------+ + + + + | 10/13/ | Hospital | [facility] | | | | 2007 | Encounter | MED CTR EMERGENCY | | | | | | [place] [address] | | | | | | [place] | | | | | | [address] | | | | | | [phone] | | | +--------+ + + + [...] | | | | | [place] [address] | | | | | | [phone] | | | | | | | | +--------+---------+ + + + | 01/01/ | Office | Cardiology | [place]via, | | | 2020 | Visit | | PARISA [place] [address] | | | | | | [place], | | | | | | [place] [address] | | | | | | [phone] | | | | | | | | +--------+---------+ + + + documented as of this encounter Visit Diagnoses Not on filedocumented in this encounter"
--- OUTSIDE RECORDS SUMMARY | ~2019-12-06 | XMS | Encounter Summary ---
Demographics + + + | Address | [address] | | | [place] [address] | + + + | Home Phone [...] Providers + +------+ + | Care Automobile Assembly Supervisor Name | Role | Phone | + +------+ + PCP | Unavailable | + +------+ + Encounter Details +--------+ + + + + | Date | Type | Department | Care Team | Description | +--------+ + + + + | 10/09/ | [facility] | [facility] | Jonathan, | | | 2008 | Encounter | MED CTR EMERGENCY | Martell Cr MD [address] | | | | | CENTER [address] | [place] | | | | | [place] | [place] [address] | | | | | [address] | [phone] | | | | | [phone] | | | +--------+ + + + [...] | | | | | [place], [place] [address] | | | | | | [phone] | | | | | | | | +--------+---------+ + + + | 01/01/ | Office | Cardiology | [place]via, | | | 2020 | Visit | | PARISA [place] [address] | | | | | | [place], | | | | | | [place] [address] | | | | | | [phone] | | | | | | | | +--------+---------+ + + + documented as of this encounter Visit Diagnoses Not on filedocumented in this encounter"
--- OUTSIDE RECORDS SUMMARY | ~2019-12-06 | XMS | Encounter Summary ---
Demographics + + + | Address | [address] | | | [place] [address] | + + + | Home Phone [...] Providers + +------+ + | Care Clinical Appeals Auditor Name | Role | Phone | [...] + + | 06/25/ | Office | [facility] | [place], | SINUS BRADYCARDIA | | 2013 | Visit | CARDIOLOGY [address] | [address] [address] | (Primary Dx); | | | | [place], | [place], | Symptomatic PVCs; | | | | [place] [address] | [place] [address] | Coronary artery | | | | [phone] | [phone] | disease; | | | | | [...] time, he was admitted over observation at [facility] for a chest pain. Aortogram revealed [...] needed for Chest pain. 25 tablet 12 T[place]-3 Fatty Acids (SALMON OIL-1000 PO) CAPS, one [...] HGBEX 16.1 01/25/2014 I reviewed records from [facility] for emergency department visit o n 05/26/2014 [...] attenuation cannot completely be ruled out. [facility] 12/25/13, shows [...] to go back in 3 days to [place] for an attempt of ablation under general [...] made to ensure accuracy; however, inadvertent computerized crop farm workers errors may be pre sent. Electronically [...] | | | | | [place] [address] | | | | | | [phone] | | | | | | | | +--------+---------+ + + + | 01/01/ | Office | Cardiology | Silvia, | | | 2019 | Visit | | PARISA [place] [address] | | | | | | [place], | | | | | | [place] [address] | | | | | | [phone] | | | | | | | | +--------+---------+ + + + documented as of this encounter Visit Diagnoses + + | Diagnosis | + + | SINUS BRADYCARDIA - Primary Sinoatrial node dysfunction | + + | Symptomatic PVCs Other premature beats | + + | Coronary artery disease Coronary atherosclerosis of unspecified type of vessel, | | [place] or graft | + + | Hypertension Unspecified essential hypertension | + + | Syncope Syncope and collapse | + + | Hyperlipidemia Other and unspecified hyperlipidemia | + + documented in this encounter
--- OUTSIDE RECORDS SUMMARY | ~2019-12-06 | XMS | Encounter Summary ---
Demographics + + + | Address | [address] | | | [place] [address] | + + + | Home Phone [...] Team Providers + +------+ + | Care Recyclable Materials Distributor Name | Role | Phone | [...] [address] | | | | | | [place], [place] | (Fax) | | | | | [address] | | | | | | [phone] | | | +--------+ + + + [...] | | | | | [place] [address] | | | | | | [phone] | | | | | | | | +--------+---------+ + + + | 01/01/ | Office | Cardiology | [place]via, | | | 2020 | Visit | | PARISA [place] [address] | | | | | | [place], | | | | | | [place] [address] | | | | | | [phone] | | | | | | | | +--------+---------+ + + + documented as of this encounter Visit Diagnoses Not on filedocumented in this encounter"
--- OUTSIDE RECORDS SUMMARY | ~2019-12-06 | XMS | Encounter Summary ---
Demographics + + + | Address | [address] | | | [place] [address] | + + + | Home Phone [...] Team Providers + +------+ + | Care Single End Sewer Name | Role | Phone | + +------+ + PCP | Unavailable | + +------+ + Encounter Details +--------+ + + + + | Date | Type | Department | Care Team | Description | +--------+ + + + + | 02/07/ | [facility] | [facility] | Unknown, | | | 1995 | Encounter | MED CTR XRAY [address] | MD Stefany | | | | | [place] | | | | | | [place] [address] | (Fax) | | | | | [phone] | | | +--------+ + + + [...] | | | | | [place] [address] | | | | | | [phone] | | | | | | | | +--------+---------+ + + + | 01/01/ | Office | Cardiology | [place]via, | | | 2020 | Visit | | PAR[place] [address] | | | | | | [place], | | | | | | [place] [address] | | | | | | [phone] | | | | | | | | +--------+---------+ + + + documented as of this encounter Visit Diagnoses Not on filedocumented in this encounter"
--- OUTSIDE RECORDS SUMMARY | ~2019-12-06 | XMS | Encounter Summary ---
Demographics + + + | Address | [address] | | | [place] [address] | + + + | Home Phone [...] Team Providers + +------+ + | Care Magneto Electrician Name | Role | Phone | [...] | | Conversion Location | [address] | | | | | [phone] | [address] [place], | | | | | | [place] [address] | | | | | | [phone] | | | | | | | [...] | | | | | [place] [address] | | | | | | [phone] | | | | | | | | +--------+---------+ + + + | 01/01/ | Office | Cardiology | [place], | | | 2020 | Visit | | PARISA [place] [address] | | | | | | [place], | | | | | | [place] [address] | | | | | | [phone] | | | | | | | | +--------+---------+ + + + documented as of this encounter Visit Diagnoses Not on filedocumented in this encounter"
--- OUTSIDE RECORDS SUMMARY | ~2019-12-06 | XMS | Encounter Summary ---
Demographics + + + | Address | [address] | | | [place] [address] | + + + | Home Phone [...] Team Providers + +------+ + | Care Sheriff'S Sergeant Name | Role | Phone | [...] | CARDIOLOGY [address] | MD [address] | | | | | [place], | [place] [facility], | | | | | [place] [address] | [place] [address] | | | | | [phone] | [phone] | | | | | | | [...] | | | | | [place] [address] | | | | | | [phone] | | | | | | | | +--------+---------+ + + + | 01/01/ | Office | Cardiology | [place]via, | | | 2019 | Visit | | PARISA [place] [address] | | | | | | [place] | | | | | | [place] [address] | | | | | | [phone] | | | | | | | | +--------+---------+ + + + documented as of this encounter Visit Diagnoses Not on filedocumented in this encounter"
--- OUTSIDE RECORDS SUMMARY | ~2019-12-06 | XMS | Encounter Summary ---
Demographics + + + | Address | [address] [place] [address] [address] | | | [place] [address] | + + + | Home Phone [...] [place] | | | | | [address] | | + + + + + Care Team Providers + +------+ + | Care Supervisor Aluminum Fabrication Name | Role | Phone | [...] | | [facility] | [facility] [place] | ED) | | | | Mailcode: Center | [address] | | | | | for Health and | [phone] | | | | | [facility] 2 | | | | | | [place], [place] | | | | | | [address] | | | | | | [phone] | | | +--------+ + + + [...]
--- OUTSIDE RECORDS SUMMARY | ~2019-12-06 | XMS | Encounter Summary ---
Demographics + + + | Address | [address] | | | [place] [address] | + + + | Home Phone [...] Providers + +------+ + | Care Artificial Breeding Distributor Name | Role | Phone | [...] | [place] | [place] | | | | | [address] | [address] | | | | | [phone] | | | +--------+ + + + [...] | | | | | [place] [address] | | | | | | [phone] | | | | | | | | +--------+---------+ + + + | 01/01/ | Office | Cardiology | [place], | | | 2019 | Visit | | PARISA [place] [address] | | | | | | [place] | | | | | | [place] [address] | | | | | | [phone] | | | | | | | | +--------+---------+ + + + documented as of this encounter Visit Diagnoses Not on filedocumented in this encounter"
--- OUTSIDE RECORDS SUMMARY | ~2019-12-06 | XMS | Encounter Summary ---
Demographics + + + | Address | [address] | | | [place] [address] | + + + | Home Phone [...] Surgery | [facility] | Daljit Singletary, | CV LHC | | 2019 | | MED CTR CV INTRA OP | MD [address] | | | | | [address] | [place], | | | | | [place] | [place] [address] | | | | | [address] | [phone] | | | | | [phone] | | | +--------+---------+ + + + [...] by your healthcare provider Date Last Reviewed: 09/22/[id number] [employer]. [address] [place] [address]. All righ ts reserved. This information is [...] | | | | | [place] [address] | | | | | | [phone] | | | | | | | | +--------+---------+ + + + | 01/01/ | Office | Cardiology | [place]via, | | | 2019 | Visit | | PARISA [place] [address] | | | | | | [place], | | | | | | [place] [address] | | | | | | [phone] | | | | | | | [...] (1960) MEDICAL RECORD NUMBER: | | | [id number] OF PROCEDURE: 01/25/2019 SLASHER MACHINE OPERATOR: Daljit | | | MD [...] Sanchez, (1960) | | OF PROCEDURE: 01/25/2019PRIMARY RAMP SERVICE MAN: Daljit Singletary MD PROCEDURES | | PERFORMED:Coronary [...] | Aggressive medical management. | | at 9:[facility] PROVIDER:Kirk French MDFor additional detail [...] or lesion | | type, unspecified whether [place] or transplanted heart | + + [...]
--- OUTSIDE RECORDS SUMMARY | ~2019-12-06 | XMS | Encounter Summary ---
Demographics + + + | Address | [address] | | | [place] [address] | + + + | Home Phone [...] Providers + +------+ + | Care Web Marketing Coordinator Name | Role | Phone | [...] Refill | | 2013 | | [facility] | DO [address] | | | | | [address] | [place] | | | | | [place] | [address] | | | | | [address] | | | | | | [phone] | | | +--------+--------+ + + + [...] | | | | | [place] [address] | | | | | | [phone] | | | | | | | | +--------+---------+ + + + | 01/01/ | Office | Cardiology | [place], | | | 2019 | Visit | | PARISA [place] [address] | | | | | | [place], | | | | | | [place] [address] | | | | | | [phone] | | | | | | | | +--------+---------+ + + + documented as of this encounter Visit Diagnoses Not on filedocumented in this encounter"
--- OUTSIDE RECORDS SUMMARY | ~2019-12-06 | XMS | Encounter Summary ---
Demographics + + + | Address | [address] | | | [place] [address] | + + + | Home Phone [...] Team Providers + +------+ + | Care Zipper Ironer Name | Role | Phone | [...] | CARDIOLOGY [address] | [address] | Interrogation | | | | [place], | [place], | (Primary Dx); | | | | [place] [address] | [place] [address] | Presence of | | | | [phone] | [phone] | permanent cardiac | | | | [...] | | | | | [place] [address] | | | | | | [phone] | | | | | | | | +--------+---------+ + + + | 01/01/ | Office | Cardiology | [place], | | | 2019 | Visit | | PARISA [place] [address] | | | | | | [place], | | | | | | [place] [address] | | | | | | [phone] | | | | | | | [...] [employer]aceart documentation and remote PDF scanned into [employer] | | | for remote interrogation results. [...]
--- OUTSIDE RECORDS SUMMARY | ~2019-12-06 | XMS | Encounter Summary ---
Demographics + + + | Address | [address] | | | [place] [address] | + + + | Home Phone [...] Team Providers + +------+ + | Care Machinist/Machine Builder Name | Role | Phone | + +------+ + PCP | Unavailable | + +------+ + Encounter Details +--------+ + + + + | Date | Type | Department | Care Team | Description | +--------+ + + + + | 06/03/ | Hospital | [facility] | | | | 2008 | Encounter | MED CTR EMERGENCY | | | | | | [place] [address] | | | | | | [place] | | | | | | [address] | | | | | | [phone] | | | +--------+ + + + [...] | | | | | [place] [address] | | | | | | [phone] | | | | | | | | +--------+---------+ + + + | 01/01/ | Office | Cardiology | [place], | | | 2020 | Visit | | PARISA Vernon [address] | | | | | | [place], | | | | | | [place] [address] | | | | | | [phone] | | | | | | | | +--------+---------+ + + + documented as of this encounter Visit Diagnoses Not on filedocumented in this encounter"
--- OUTSIDE RECORDS SUMMARY | ~2019-12-06 | XMS | Encounter Summary ---
Demographics + + + | Address | [address] | | | [place] [address] | + + + | Home Phone [...] Team Providers + +------+ + | Care Catshovel Driver Name | Role | Phone | [...] unspecified | [address] | [address] | | | | | type | [address] | [place], | | | | | Procedures | [place], | [place] | | | | | [place] | [place] [address] | [address] | | | | | Stress Test | Phone: | Phone: | | | | | (Vasodilator | [phone] | [phone] | | | | | ) CHG | Fax: | Fax: | | | | | MYOCARDIAL | [phone] | [phone] | | | | | SPECT | | | | | | | MULTIPLE | | | | | | | STUDIES [place] | | | | | | | CV STRS TST | | | | | | | XERS&/OR RX | | | | | | | CONT ECG W/O | | | | | | | I&R [place] | | | | | | [...] unspecified | [address] | [address] | | | | | type | [address] | [place], | | | | | Procedures | [place], | [place] | | | | | [place] | [place] [address] | [address] | | | | | Stress Test | Phone: | Phone: | | | | | (Vasodilator | [phone] | [phone] | | | | | ) CHG | Fax: | Fax: | | | | | MYOCARDIAL | [phone] | [phone] | | | | | SPECT | | | | | | | MULTIPLE | | | | | | | STUDIES [place] | | | | | | | CV STRS TST | | | | | | | XERS&/OR RX | | | | | | | CONT ECG W/O | | | | | | | I&R [place] | | | | | | [...] + | 07/21/ | Hospital | [facility] | Daljit Singletary, | Chest pain, | | 2018 | Encounter | MED CTR NUCLEAR | MD [address] | unspecified type | | | | MEDICINE [address] [place], | | | | | [place], | [place] [address] | | | | | [place] [address] | [phone] | | | | | [phone] | | | | | | | Roller Leveler OperatorPavel | | +--------+ + + + + [...] + + +---------+ + + | [place]-3 Fatty | CAPS, one capsule by [...] | | | | | [place] [address] | | | | | | [phone] | | | | | | | | +--------+---------+ + + + | 01/01/ | Office | Cardiology | [place], | | | 2019 | Visit | | PARISA Vernon [address] | | | | | | [place] | | | | | | [place] [address] | | | | | | [phone] | | | | | | | [...] | | | | | | Starting Talia 07/21/18 at 0822, For | | | | | | | 1 dose, Nuclear Medicine | | | | | | + +-------+ + +---+---+ +---+---+ | | | +---+---+ documented in this encounter"
--- OUTSIDE RECORDS SUMMARY | ~2019-12-06 | XMS | Encounter Summary ---
Demographics + + + | Address | [address] | | | [place] [address] | + + + | Home Phone [...] Providers + +------+ + | Care Service Delivery Supervisor Name | Role | Phone [...] Refill | | 2013 | | MEDICINE [place] | DO [address] | | | | | [address] | [place] | | | | | [place] | [address] | | | | | [address] | | | | | | [phone] | | | +--------+--------+ + + + [...] | | | | | [place] [address] | | | | | | [phone] | | | | | | | | +--------+---------+ + + + | 01/01/ | Office | Cardiology | [place], | | | 2019 | Visit | | PARISA Vernon [address] | | | | | | [place], | | | | | | [place] [address] | | | | | | [phone] | | | | | | | | +--------+---------+ + + + documented as of this encounter Visit Diagnoses Not on filedocumented in this encounter"
--- OUTSIDE RECORDS SUMMARY | ~2019-12-06 | XMS | Encounter Summary ---
Demographics + + + | Address | [address] | | | [place] [address] | + + + | Home Phone [...] Providers + +------+ + | Care Superintendent Pressure Name | Role | Phone | + +------+ + PCP | Unavailable | + +------+ + Encounter Details +--------+ + + + + | Date | Type | Department | Care Team | Description | +--------+ + + + + | 12/16/ | [facility] | [facility] | Naresh Mckeon | | | 2010 | Encounter | MED CTR SLEEP | MD Chaya [address] | | | | | CENTER [address] | [place] | | | | | [place] | [place] [address] | | | | | [address] | [phone] | | | | | [phone] | | | +--------+ + + + [...] | | | | | [place] [address] | | | | | | [phone] | | | | | | | | +--------+---------+ + + + | 01/01/ | Office | Cardiology | [place], | | | 2020 | Visit | | PARISA Vernon [address] | | | | | | [place], | | | | | | [place] [address] | | | | | | [phone] | | | | | | | | +--------+---------+ + + + documented as of this encounter Visit Diagnoses Not on filedocumented in this encounter"
--- OUTSIDE RECORDS SUMMARY | ~2019-12-06 | XMS | Encounter Summary ---
Demographics + + + | Address | [address] [place] [address] [address] | | | [place] [address] | + + + | Home Phone [...] [place] | | | | | [address] | | + + + + + Care Team Providers + +------+ + | Care Lead Pony Rider Name | Role | Phone | [...] 10/26/ | Telephone | [facility] | Birdgette Rios, | Refill Request | | 2019 | | Center at [facility] [address] | MD [address] | | | | | [address] | [facility] [place] | | | | | Mailcode: [place] | [address] | | | | | for Health and | [phone] | | | | | [facility] 2 | | | | | | [facility] [place] | | | | | | [address] | | | | | | [phone] | | | +--------+ + + + [...]
--- OUTSIDE RECORDS SUMMARY | ~2019-12-06 | XMS | Encounter Summary ---
Demographics + + + | Address | [address] | | | [place] [address] | + + + | Home Phone [...] Team Providers + +------+ + | Care Cpas Name | Role | Phone | + [...] 2014 | | CARDIOLOGY [address] | ENDLESS BELT FINISHER [address] | | | | | [place], | [place], [place] | | | | | [place] [address] | [address] | | | | | [phone] | | | +--------+ + + + [...] | | | | | [place] [address] | | | | | | [phone] | | | | | | | | +--------+---------+ + + + | 01/01/ | Office | Cardiology | [place], | | | 2019 | Visit | | PARISA Vernon [address] | | | | | | [place], | | | | | | [place] [address] | | | | | | [phone] | | | | | | | | +--------+---------+ + + + documented as of this encounter Visit Diagnoses Not on filedocumented in this encounter"
--- OUTSIDE RECORDS SUMMARY | ~2019-12-06 | XMS | Encounter Summary ---
Demographics + + + | Address | [address] | | | [place] [address] | + + + | Home Phone [...] Providers + +------+ + | Care Hair Blender Name | Role | Phone | [...] + + | 04/24/ | Office | [facility] | [place], | Symptomatic PVCs | | 2012 | Visit | CARDIOLOGY [address] | PARISA [place] [address] | (Primary Dx); CAD; | | | | [place], | [place], | Hyperlipidemia; | | | | [place] [address] | [place] [address] | PACEMAKER, PERMANENT | | | | [phone] | [phone] | - [employer] | | | | [...] tablet by mouth Daily. 30 tablet 6 [place]-3 Fatty Acids (SALMON OIL-1000 PO) CAPS, [...] records from PCP and notes from [facility]. Assessment: 1. Symptomatic PVCs [...] to go back in 3 days to [place] for an attempt of ablation under general [...] He is upgraded to class I of [place] [employer] functional class. There are no [...] made to ensure accuracy; however, inadvertent computerized pipe roller errors may be pre sent. documented in [...] | | | | | [place] [address] | | | | | | [phone] | | | | | | | | +--------+---------+ + + + | 01/01/ | Office | Cardiology | [place], | | | 2019 | Visit | | PARISA Vernon [address] | | | | | | [place], | | | | | | [place] [address] | | | | | | [phone] | | | | | | | | +--------+---------+ + + + documented as of this encounter Visit Diagnoses + + | Diagnosis | + + | Symptomatic PVCs - Primary Other premature beats | + + | CAD Coronary atherosclerosis of unspecified type of vessel, [place] or graft | + + | Hyperlipidemia Other and unspecified hyperlipidemia | + + | PACEMAKER, PERMANENT - [employer] 06/14/09GRANT Cardiac pacemaker in situ | + + documented in this encounter
--- OUTSIDE RECORDS SUMMARY | ~2019-12-06 | XMS | Encounter Summary ---
Demographics + + + | Address | [address] | | | [place] [address] | + + + | Home Phone [...] Providers + +------+ + | Care Planning Specialist Name | Role | Phone | [...] | | CARDIOLOGY [address] | SUPERVISOR ROVING [address] | edema and chest | | | | [place], | [facility] [place] [place] | pain) | | | | [place] [address] | [address] | | | | | [phone] | | | +--------+ + + + [...] | | | | | [place] [address] | | | | | | [phone] | | | | | | | | +--------+---------+ + + + | 01/01/ | Office | Cardiology | [place], | | | 2019 | Visit | | PARISA Vernon [address] | | | | | | [place] | | | | | | [place] [address] | | | | | | [phone] | | | | | | | | +--------+---------+ + + + documented as of this encounter Visit Diagnoses Not on filedocumented in this encounter"
--- OUTSIDE RECORDS SUMMARY | ~2019-12-06 | XMS | Encounter Summary ---
Demographics + + + | Address | [address] | | | [place] [address] | + + + | Home Phone [...] + + | 01/05/ | Anesthesia | [facility] | Jarett Barakat | | | 2019 | Event | MED CTR MP INTRA OP | P, MD [address] | | | | | [address] | [place], [place] | | | | | [place], [place] | [address] | | | | | [address] | [phone] | | | | | [phone] | | | +--------+ + + + [...] explained and consent obtained. Patient transported to [facility], | | | 4 | | Monitors [...] | 01/05/19950 by | | eral | yczc-omc-owdyjq catheter system; | Kasie Natarajan RN | [...] | | | | | [place] [address] | | | | | | [phone] | | | | | | | | +--------+---------+ + + + | 01/01/ | Office | Cardiology | [place], | | | 2019 | Visit | | PARISA [place] [address] | | | | | | [place], | | | | | | [place] [address] | | | | | | [phone] | | | | | | | [...] | | | | | Vomiting, Starting [facility] 01/05/19 at | | AM PST | [...]
--- OUTSIDE RECORDS SUMMARY | ~2019-12-06 | XMS | Encounter Summary ---
Demographics + + + | Address | [address] | | | [place] [address] | + + + | Home Phone [...] Providers + +------+ + | Care Tool Designer Name | Role | Phone | + +------+ + PCP | Unavailable | + +------+ + Encounter Details +--------+ + + + + | Date | Type | Department | Care Team | Description | +--------+ + + + + | 01/15/ | [facility] | [facility] | Emmanuel Daniel MD | | | 1994 | Encounter | MED CTR GENERIC OP | [address] [place] | | | | | CONV DEPT [address] | [address] [place] | | | | | [place], | [address] | | | | | [place] [address] | | | | | | [phone] | | | +--------+ + + + [...] | | | | | | [place] [address] | | | | | | [phone] | | | | | | | | +--------+---------+ + + + | 01/01/ | Office | Cardiology | [place], | | | 2020 | Visit | | PARISA Vernon [address] | | | | | | [place], | | | | | | [place] [address] | | | | | | [phone] | | | | | | | | +--------+---------+ + + + documented as of this encounter Visit Diagnoses Not on filedocumented in this encounter"
--- OUTSIDE RECORDS SUMMARY | ~2019-12-06 | XMS | Encounter Summary ---
Demographics + + + | Address | [address] | | | [place] [address] | + + + | Home Phone [...] Providers + +------+ + | Care Solution Spec Name | Role | Phone | [...] 2019 | | GASTROENTEROLOGY | [address], [place] | | | | | [address] [place] | [address] [place], [place] | | | | | [address] [place], [place] | [address] | | | | | [address] | | | | | | [phone] | | | +--------+ + + + [...] | | | | | [place] [address] | | | | | | [phone] | | | | | | | | +--------+---------+ + + + | 01/01/ | Office | Cardiology | [place], | | | 2019 | Visit | | PARISA Vernon [address] | | | | | | [place] | | | | | | [place] [address] | | | | | | [phone] | | | | | | | | +--------+---------+ + + + documented as of this encounter Visit Diagnoses Not on filedocumented in this encounter"
--- OUTSIDE RECORDS SUMMARY | ~2019-12-06 | XMS | Encounter Summary ---
Demographics + + + | Address | [address] | | | [place] [address] | + + + | Home Phone [...] Providers + +------+ + | Care Embedded Linux Engineer Name | Role | Phone | [...] + + | 07/13/ | Telephone | [facility] | Kirk French | Referral Question | | 2019 | | [facility] | MD Bre[address] | | | | | PRIMARY CARE [address] | [address] | | | | | [address] | [place] [address] | | | | | [place], [place] | [phone] | | | | | [address] | | | | | | [phone] | | | +--------+ + + + [...] | | | | | [place] [address] | | | | | | [phone] | | | | | | | | +--------+---------+ + + + | 01/01/ | Office | Cardiology | [place], | | | 2019 | Visit | | PARISA Vernno [address] | | | | | | [place] | | | | | | [place] [address] | | | | | | [phone] | | | | | | | | +--------+---------+ + + + documented as of this encounter Visit Diagnoses Not on filedocumented in this encounter"
--- OUTSIDE RECORDS SUMMARY | ~2019-12-06 | XMS | Encounter Summary ---
Demographics + + + | Address | [address] | | | [place] [address] | + + + | Home Phone [...] Providers + +------+ + | Care Recreation Worker Name | Role | Phone | + +------+ + | Sraah French MD | PCP | | + [...] | Aneurysmal | [place], | [address] [place] | | | | | dilatation | PARISA Solis | [place], | | | | | ([facility]) | [address] | [place] | | | | | Procedures | [place] | [address] | | | | | ECHO | [place], | Phone: | | | | | Complete | [place] | [phone] | | | | | | [address] | Fax: | | | | | | Phone: | [phone] | | | | | | [phone] | | | | | | | Fax: | | | | | | | [phone] | | +--------+--------+ + + + + [...] | | | | | Aneurysmal | [place], | [address] [place] | | | | | dilatation | PARISA Solis | [place], | | | | | ([facility]) | [address] | [place] | | | | | Procedures | [place] | [address] | | | | | ECHO | [place], | Phone: | | | | | Complete | [place] | [phone] | | | | | | [address] | Fax: | | | | | | Phone: | [phone] | | | | | | [phone] | | | | | | | Fax: | | | | | | | [phone] | | +--------+--------+ + + + + Encounter Details +--------+ + + + + | Date | Type | Department | Care Team | Description | +--------+ + + + + | 11/16/ | Hospital | [facility] | [place], | Aneurysmal | | 2017 | Encounter | MED CTR ECHO [address] | [place], HOSPICE NURSE [address] | dilatation (HCC) | | | | [place] | [place], | | | | | [place], [place] [address] | [place] [address] | | | | | [phone] | [phone] | | | | | | | [...] + + + +---------+ + + | [place]-3 Fatty | CAPS, one capsule by | [...] | | | | | [place] [address] | | | | | | [phone] | | | | | | | | +--------+---------+ + + + | 01/01/ | Office | Cardiology | [place], | | | 2020 | Visit | | PARISA Solis [address] | | | | | | [place], | | | | | | [place] [address] | | | | | | [phone] | | | | | | | [...] Room Number SARAH Patient | | | [id number] Date of Study 11/16/2017 Number | | | Visit Number [id number] | | | Referring Physician GURJIT TROY Number | | | NORMA SOLIS Date | | | of 1960 Fire Eater ROMAINE | | | MARISSA TIPTON Age 57 year(s) Interpreting | | | GURJIT TROY | | | Snowmaker SYDNI CAGLE, | | | MD | | | Gender Male Nurse | | | Stress Government Operations Consultant Procedure Type of | | | Study [...] | | | EF | | | Whqgmbrzr46% Left Ventricle Diastolic Dimension: 5.12 cm | [...] Volume: 46.33 ml | | | EF Cjxqnkxks80% | | | | | | Left [...] BARRY Room Number SARAH | | Patient [id number] Date of Study 11/16/2017 Number Visit Number | | [id number] Referring Physician GURJIT TROY | | Number RHBROCKARD IRMA Date of | | 1960 Fire Eater ROMAINE TIPTON PARESH Age 57 year(s) | | Interpreting GURJIT TROY Snowmaker | | SYDNI CAGLE MD | | [...] LA Volume: 46.33 ml | | EF Zdsdexseb00% Left Ventricle Diastolic Dimension: 5.12 cm Systolic [...] LA Volume: 46.33 ml | | EF Rwxmkfmae80% | | | | Left Ventricle | [...]
--- OUTSIDE RECORDS SUMMARY | ~2019-12-06 | XMS | Encounter Summary ---
Demographics + + + | Address | [address] | | | [place] [address] | + + + | Home Phone [...] Team Providers + +------+ + | Care Desulphuring Operator Name | Role | Phone | [...] 2018 | | GASTROENTEROLOGY | [address] [place], [place] | about prep for | | | | [address] [place] | [address] [place], [place] | procedure) | | | | [address] [place], [place] | [address] | | | | | [address] | | | | | | [phone] | | | +--------+ + + + [...] | | | | | [place] [address] | | | | | | [phone] | | | | | | | | +--------+---------+ + + + | 01/01/ | Office | Cardiology | [place], | | | 2019 | Visit | | PARISA Vernon [address] | | | | | | [place] | | | | | | [place] [address] | | | | | | [phone] | | | | | | | | +--------+---------+ + + + documented as of this encounter Visit Diagnoses Not on filedocumented in this encounter"
--- OUTSIDE RECORDS SUMMARY | ~2019-12-06 | XMS | Encounter Summary ---
Demographics + + + | Address | [address] | | | [place] [address] | + + + | Home Phone [...] Providers + +------+ + | Care County Auditor Name | Role | Phone | [...] | | CARDIOLOGY [address] | Janeen, COUNTRY SALES MANAGER [address] | Clearance) | | | | [place], | [place], | | | | | [place] [address] | [place] [address] | | | | | [phone] | [phone] | | | | | | | [...] | | | | | [place] [address] | | | | | | [phone] | | | | | | | | +--------+---------+ + + + | 01/01/ | Office | Cardiology | [place], | | | 2019 | Visit | | PARISA [place] [address] | | | | | | [place] | | | | | | [place] [address] | | | | | | [phone] | | | | | | | | +--------+---------+ + + + documented as of this encounter Visit Diagnoses Not on filedocumented in this encounter"
--- OUTSIDE RECORDS SUMMARY | ~2019-12-06 | XMS | Encounter Summary ---
Demographics + + + | Address | [address] | | | [place] [address] | + + + | Home Phone [...] Providers + +------+ + | Care Assistant Spa Director Name | Role | Phone [...] + + | 12/09/ | Telephone | [facility] | Emmanuel Daniel MD | Appointment (EGD, | | 2017 | | GASTROENTEROLOGY | [address], [place] | colon Rescheduled to | | | | [address] [place] | [address] [place] | December 24 due to | | | | [address] [place] | [address] | illness) | | | | [address] | | | | | | [phone] | | | +--------+ + + + [...] | | | | | [place] [address] | | | | | | [phone] | | | | | | | | +--------+---------+ + + + | 01/01/ | Office | Cardiology | [place], | | | 2019 | Visit | | PARISA [place] [address] | | | | | | [place], | | | | | | [place] [address] | | | | | | [phone] | | | | | | | | +--------+---------+ + + + documented as of this encounter Visit Diagnoses Not on filedocumented in this encounter"
--- OUTSIDE RECORDS SUMMARY | ~2019-12-06 | XMS | Encounter Summary ---
Demographics + + + | Address | [address] | | | [place] [address] | + + + | Home Phone [...] Team Providers + +------+ + | Care Ecological Economist Name | Role | Phone | + +------+ + | Michael Amanda DO | PCP | | + +------+ + Encounter Details +--------+ + + + + | Date | Type | Department | Care Team | Description | +--------+ + + + + | 01/31/ | Hospital | [facility] | Adrian Gutierrez MD | | | 2012 | Encounter | HEART MED CTR | [address] | | | | | EMERGENCY CENTER | [place], [place] | | | | | [address] | [address] | | | | | [place] | [phone] | | | | | [address] | | | | | | [phone] | | | +--------+ + + + [...] + + + +---------+ + + | [place]-3 Fatty | CAPS, one capsule by | [...] | | | | | [place] [address] | | | | | | [phone] | | | | | | | | +--------+---------+ + + + | 01/01/ | Office | Cardiology | [place], | | | 2019 | Visit | | PARISA [place] [address] | | | | | | [place], | | | | | | [place] [address] | | | | | | [phone] | | | | | | | [...] + + + | Exam Performed Location: [facility] | MISCELANIOUS | | CHEST CLINICAL [...] | an acute cardiopulmonary process. S: SQ ([id number]) Signed by: | | | JAYNE SPEAR MD | | + + + + + | Procedure Note | + + | Kalpesh Brown Conversion - 09/13/2013 10:25 PM PDT Exam Performed [facility] INFORMATION:Shortness of | | breath.COMPARISON:None.FINDINGS:There is a left subclavian dual lead cardiac pacer. The | | heart sizeand mediastinal contours are normal. The pulmonary vasculature isnormal. No | | focal airspace opacities, pleural effusions, orpneumothorax. Cervical fusion hardware | | is noted. No acute osseousfindings.IMPRESSION:No evidence of an acute cardiopulmonary | | process.S: SQ ([id number]) Signed by: JAYNE SPEAR MD | |COMPARISON: [...] | | | | | |S: SQ ([id number]) Signed by: JAYNE SPEAR MD | + + + +---------+ + + | Performing | Address | City/State/Zipcode | Phone Number | | Organization | | | | + +---------+ + + | MISCELLANEOUS LAB | | | [phone] | + +---------+ + + | MISCELANIOUS LAB | | | [phone] | + +---------+ + + Troponin I [...] + | YESSY JONES | [address] | [place] [address] | | | [facility] | | | | | LABORATORY | | | | + + + + + | YESSY JONES | | | | | [facility] | | | | [...] + + | [facility] | [address] | [place] [address] | | | [facility] [...] + | YESSY JONES | [address] | [place] [address] | | | [facility] | | | | | LABORATORY | | | | + + + + + | YESSY JONES | | | | | [facility] | | | | [...] + | YESSY JONES | [address] | [place] [address] | | | [facility] | | | | | LABORATORY | | | | + + + + + | YESSY JONES | | | | | [facility] | | | | | [...] + + | Glucose | 154 (H)Comment: [place] | 65 - 99 mg/dL | [facility] | | | | [employer] | [...] | | | | failure.For | | [place] | | | | Americans, multiply the [...] + | YESSY JONES | [address] | [place] [address] | | | [facility] | | | | | LABORATORY | | | | + + + + + | YESSY JONES | | | | | [facility] | | | | | LABORATORY | | | | + + + + + documented in this encounter Visit Diagnoses Not on filedocumented in this encounter"
--- OUTSIDE RECORDS SUMMARY | ~2019-12-06 | XMS | Encounter Summary ---
Demographics + + + | Address | [address] | | | [place] [address] | + + + | Home Phone [...] Team Providers + +------+ + | Care Bid Writer Name | Role | Phone | [...] 2019 | | GASTROENTEROLOGY | [address], [place] | | | | | [address] [place] | [address] [place], [place] | | | | | [address] [place], [place] | [address] | | | | | [address] | | | | | | [phone] | | | +--------+ + + + [...] | | | | | [place] [address] | | | | | | [phone] | | | | | | | | +--------+---------+ + + + | 01/01/ | Office | Cardiology | Silvia, | | | 2019 | Visit | | PARISA Vernon [address] | | | | | | [place] | | | | | | [place] [address] | | | | | | [phone] | | | | | | | | +--------+---------+ + + + documented as of this encounter Visit Diagnoses Not on filedocumented in this encounter"
--- OUTSIDE RECORDS SUMMARY | ~2019-12-06 | XMS | Encounter Summary ---
Demographics + + + | Address | [address] | | | [place] [address] | + + + | Home Phone [...] Providers + +------+ + | Care Derrick Engineer Name | Role | Phone | [...] | 04/07/ | Office | [facility] | Matthew Uriarte | Left ureteral | | 2019 | Visit | [address] | MD Tawanna [address] | calculus (Primary | | | | [place], [place] | [place]VE [place] | Dx); Kidney stones | | | | [address] | [address] | | | | | [phone] | | | +--------+---------+ + + + [...] April 13, 2019 at 7:45 AM at [facility]. Please report to the [facility] no later than 6:15 AM. REMEMBER: NOTHING TO EAT OR DRINK AFTER MIDNIGHT April 12, 2019. NO FISH OIL, ASPIRIN OR ASPIRIN PRODUCTS ONE WEEK PRIOR TO SURGERY. Tylenol and Advil are OK. You will need to get the following testing done prior to surgery: CBC, BMP YOU WILL NEED TO BRING A FINISHED GOODS PLANNER WITH YOU THE DAY OF SURGERY. Call us at [phone] with any questions. [] Pain management booklet [...] [employer] Peptic ulcer disease Premature ventricular contraction [facility] LAST PSA:12/16/2010 RESULT:0.14 LAST COLONOSCOPY:02/05/2009 [...] CV LHC; Surgeon: Daljit Singletary MD; Location: [facility] CV LAB CARDIAC CATHERIZATION N/A 01/25/2019 Procedure: CV Cor Angio; Surgeon: Daljit Singletary MD; Location: [facility] CV LAB COLONOSCOPY N/A 12/24/2017 Procedure: COLONOSCOPY; Surgeon: Emmanuel Daniel MD; Location: [facility] MEDICAL PROCEDURE UNIT COLONOSCOPY N/A 01/05/2019 Procedure: COLONOSCOPY; Surgeon: Emmanuel Daniel MD; Location: [facility] MEDICAL PROCEDURE UNIT EGD 12/24/2017 [...] [facility] UPPER GASTROINTESTINAL ENDOSCOPY N/A 01/05/2019 Procedure: EGD; Surgeon: Emmanuel Daniel MD; Location: [facility] MEDICAL PROCEDURE UNIT VASECTOMY Family History: [...] EVERY DAY, Disp: 90 tablet, Rfl: 3 [facility] [place] [facility] [...] 911, Disp: 100 ta blet, Rfl: 3 [place]-3 Fatty Acids (SALMON OIL-1000 PO), CAPS, one [...] have not thoroughly proofread this note, and analytical technician errors are very likely to occur. CC: [...] | | | | | [place] [address] | | | | | | [phone] | | | | | | | | +--------+---------+ + + + | 01/01/ | Office | Cardiology | Silvia, | | | 2019 | Visit | | PARISA Vernon [address] | | | | | | [place], | | | | | | [place] [address] | | | | | | [phone] | | | | | | | [...]
--- OUTSIDE RECORDS SUMMARY | ~2019-12-06 | XMS | Encounter Summary ---
Demographics + + + | Address | [address] | | | [place] [address] | + + + | Home Phone [...] Team Providers + +------+ + | Care Cda Teacher Name | Role | Phone | + +------+ + | Michael Amanda DO | PCP | | + +------+ + Encounter Details +--------+ + + + + | Date | Type | Department | Care Team | Description | +--------+ + + + + | 06/26/ | Hospital | [facility] | Michael Amanda, | Diplopia | | 2012 | Encounter | MED CTR LABORATORY | DO [address] | | | | | [address] [place] | [place], [place] | | | | | [place], [place] | [address] | | | | | [address] | | | | | | [phone] | | | +--------+ + + + [...] + + + +---------+ + + | [place]-3 Fatty | CAPS, one capsule by | [...] | | | | | [place] [address] | | | | | | [phone] | | | | | | | | +--------+---------+ + + + | 01/01/ | Office | Cardiology | Silvia, | | | 2019 | Visit | | PARISA Vernon [address] | | | | | | [place], | | | | | | [place] [address] | | | | | | [phone] | | | | | | | [...] + | [facility] | [address] | [place] | [phone] | | [facility] | | [address] | | | - LABORATORY | | | | + + + + + | [facility] | [address] | [place], [place] | | | [facility] | | [address] | | | [...] + | [facility] | [address] | [place] | [phone] | | [facility] | | [address] | | | - LABORATORY | | | | + + + + + | [facility] | [address] | [place] | | | [facility] | | [address] | | | - LABORATORY | | [...] + | [facility] | [address] | [place] | [phone] | | [facility] | | [address] | | | - LABORATORY | | | | + + + + + | [facility] | [address] | [place] | | | [facility] | | [address] | | | - LABORATORY | | [...] + | [facility] | [address] | [place] | [phone] | | [facility] | | [address] | | | - LABORATORY | | | | + + + + + | [facility] | [address] | [place] | | | [facility] | | [address] | | | - LABORATORY | | [...] Performing | Address | City/[facility]/Zipcode | Phone Number | | Organization | | | | + + + + + | [facility] | [address] | [place], [place] | [phone] | | [facility] | | [address] | | | - LABORATORY | | | | + + + + + | [facility] | [address] | [place], [place] | | | [facility] | | [address] | | | - LABORATORY | | [...] performed on the Javid | uIU/mL | MICHELLE | | | | [facility] | | MEDICAL | | | [...] + | [facility] | [address] | [place] | [phone] | | [facility] | | [address] | | | - LABORATORY | | | | + + + + + | [facility] | [address] | [place], [place] | | | [facility] | | [address] | | | - LABORATORY | | | | + + + + + documented in this encounter Visit Diagnoses + + | Diagnosis | + + | Diplopia | + + documented in this encounter"
--- OUTSIDE RECORDS SUMMARY | ~2019-12-06 | XMS | Encounter Summary ---
Demographics + + + | Address | [address] | | | [place] [address] | + + + | Home Phone [...] Team Providers + +------+ + | Care Rural Health Consultant Name | Role | Phone | [...] abdominal | [address] | [address], | | | | | pain | [address] | [address] [address] | | | | | Chronic pain | [address] | [place], | | | | | syndrome | [place], [place] | [place] [address] | | | | | Procedures | [address] | Phone: | | | | | Office Visit | Phone: | [phone] | | | | | | [phone] | Fax: | | | | | | Fax: | [phone] | | | | | | [phone] | | +--------+--------+ + + + + Encounter Details +--------+---------+ + + + | Date | Type | Department | Care Team | Description | +--------+---------+ + + + | 12/02/ | Office | [facility] [place] | Emmanuel Daniel MD | Diarrhea, | | 2018 | Visit | GASTROENTEROLOGY | [address] [place] | unspecified type | | | | [address] [place] | [address] [place], [place] | (Primary Dx); Weight | | | | [address] [place], [place] | [address] | loss, | | | | [address] | | unintentional; | | | | [phone] | | Generalized | | | | [...] | | | | | [place] [address] | | | | | | [phone] | | | | | | | | +--------+---------+ + + + | 01/01/ | Office | Cardiology | Silvia, | | | 2019 | Visit | | PARISA Vernon [address] | | | | | | [place] | | | | | | [place] [address] | | | | | | [phone] | | | | | | | [...]
--- OUTSIDE RECORDS SUMMARY | ~2019-12-06 | XMS | Encounter Summary ---
Demographics + + + | Address | [address] | | | [place] [address] | + + + | Home Phone [...] Providers + +------+ + | Care Supervisor Rose Grading Name | Role | Phone | + [...] 2012 | | CARDIOLOGY [address] | FAGOT HEATER HELPER [address] | | | | | [place], | [facility] [place] [facility], [place] | | | | | [place] [address] | [address] | | | | | [phone] | | | +--------+ + + + [...] | | | | | [place] [address] | | | | | | [phone] | | | | | | | | +--------+---------+ + + + | 01/01/ | Office | Cardiology | Silvia, | | | 2019 | Visit | | PARISA Vernon [address] | | | | | | [place], | | | | | | [place] [address] | | | | | | [phone] | | | | | | | | +--------+---------+ + + + documented as of this encounter Visit Diagnoses Not on filedocumented in this encounter"
--- OUTSIDE RECORDS SUMMARY | ~2019-12-06 | XMS | Encounter Summary ---
Demographics + + + | Address | [address] | | | [place] [address] | + + + | Home Phone [...] Providers + +------+ + | Care Bioinformatics Support Specialist Name | Role | Phone [...] [place] | | | | | | [address] | [address] Phone: | | | | | | Phone: | [phone] | | | | | | [phone] | Fax: | | | | | | Fax: | [phone] | | | | | | [phone] | | +--------+ + + + + + Reason for Visit + + + | Reason | Comments | + + + | Medicare Wellness | | + + + Encounter Details +--------+---------+ + + + | Date | Type | Department | Care Team | Description | +--------+---------+ + + + | 07/25/ | Office | [facility] | Michael Amanda, | Preventative health | | 2014 | Visit | [facility] [place] | DO [address] | care (Primary Dx); | | | | [address] | [place] | Cannabis abuse, | | | | [place] | [address] | daily use; Urinary | | | | [address] | | frequency; | | | | [phone] | | Incontinence; | | | | [...] 1 tablet under the tongue every 5 lzu marcos as needed for Chest pain. 25 tablet 12 [place]-3 Fatty Acids (SALMON OIL-1000 PO) CAPS, one [...] Practitioner) Daljit Singletary MD as Physician (Cardiology) PRAISA Russell as Nurse Practitioner (Cardiology) FENG Chou (Physician Specimen Preparation Assistant) Current Medicare Suppliers: [facility] - [place], [place] - [address] [place] [address] [facility] - [place], [place] - [address] [place] [address] HEALTH RISK ASSESSMENT: : The patient or [...] following health maintenance items are reviewed in [facility] and correct as of [...] no kevin in the usual sections in [facility]. documented in this en counter Plan of [...] | | | | | [place] [address] | | | | | | [phone] | | | | | | | | +--------+---------+ + + + | 01/01/ | Office | Cardiology | Silvia, | | | 2020 | Visit | | PARISA Vernon [address] | | | | | | [place], | | | | | | [place] [address] | | | | | | [phone] | | | | | | | [...] Routine general medical examination at a [facility] | | care facility | [...]
--- OUTSIDE RECORDS SUMMARY | ~2019-12-06 | XMS | Encounter Summary ---
Demographics + + + | Address | [address] | | | [place] [address] | + + + | Home Phone [...] + + | 07/01/ | Hospital | [facility] | Scotty Galdamez, | DDD (degenerative | | 2018 | Encounter | MED CTR XRAY [address] | MEDICAL RECORD CONSULTANT [address] | disc disease), | | | | [place] | [address] | lumbar; Chronic | | | | [place] [address] | [place] [address] | left-sided low back | | | | [phone] | [phone] | pain with left-sided | | | [...] + + + +---------+ + + | [place]-3 Fatty | CAPS, one capsule by | [...] | | | | | | [place] [address] | | | | | | [phone] | | | | | | | | +--------+---------+ + + + | 01/01/ | Office | Cardiology | Silvia, | | | 2019 | Visit | | PARISA [place] [address] | | | | | | [place], | | | | | | [place] [address] | | | | | | [phone] | | | | | | | [...]
--- OUTSIDE RECORDS SUMMARY | ~2019-12-06 | XMS | Encounter Summary ---
Demographics + + + | Address | [address] | | | [place] [address] | + + + | Home Phone [...] Providers + +------+ + | Care Wood Boatbuilder Name | Role | Phone | + [...] | CARDIOLOGY [address] | [address] [place] | (Primary Dx); | | | | [place], | [place], | Tachycardia; | | | | [place] [address] | [place] [address] | Coronary artery | | | | [phone] | [phone] | disease involving | | | | | | [place] coronary | | | | | | artery of [place] | | | | | | heart [...] | | | | | [place] [address] | | | | | | [phone] | | | | | | | | +--------+---------+ + + + | 01/01/ | Office | Cardiology | Silvia, | | | 2019 | Visit | | PARISA Vernon [address] | | | | | | [place] | | | | | | [place] [address] | | | | | | [phone] | | | | | | | [...] involving | | | | | | [place] coronary | | | | | | artery of [place] | | | | | | heart [...] MD | | | | | | ([id number]) on 06/29/2018 | | | | | [...] + + | Coronary artery disease involving [place] coronary artery of [place] heart without | | angina pectoris | + + | Hypertension, unspecified type | + + documented in this encounter"
--- OUTSIDE RECORDS SUMMARY | ~2019-12-06 | XMS | Encounter Summary ---
Demographics + + + | Address | [address] | | | [place] [address] | + + + | Home Phone [...] Team Providers + +------+ + | Care Ten Pin Bowling Centre Manager Name | Role | Phone [...] W | Dx) | | | | [place] [address] | [address] [place] | | | | | [place], [place] | [place] [address] | | | | | [address] | [phone] | | | | | [phone] | | | +--------+ + + + [...] + + + +---------+ + + | [place]-3 Fatty | CAPS, one capsule by [...] | | | | | [place] [address] | | | | | | [phone] | | | | | | | | +--------+---------+ + + + | 01/01/ | Office | Cardiology | Silvia, | | | 2019 | Visit | | PARISA Vernon [address] | | | | | | [place] | | | | | | [place] [address] | | | | | | [phone] | | | | | | | [...] W?MRN: | | | | | | [id number] | | | [id number] | | | his | | | [...] | | | ent/60 | | | [id number] | | | -5586- | | | [...] | | | St. | | | [place] | | | y H. | | [...] | | | St. | | | [place] | | | y H. | | [...] | | | St. | | | [place] | | | y H. | | [...] | | | St. | | | [place] | | | y H. | | [...] | | | St. | | | [place] | | | y | | | [...] | | | ext. | | | [address] | | | or go | | [...] | | | icalte | | | .com | | | | +---+--------+ documented in [...] ST. | [address] | [place] | [phone] | | [facility] | | [address] | | | - LABORATORY | | [...] [address] | [place] | [phone] | | [facility] | | [address] | | | - LABORATORY | | [...] | 0.82 | 0.60 - 1.30 | [facility] | | | | | mg/dL | [facility] | | | | | | MEDICAL | | | | | | CENTER - | | | | | | LABORATORY | | + + + + + + | eGFR if not | >60Comment: GLOMERULAR | >=60 | [facility] | | | | FILTRATION | mL/min/1.73m2 | [facility] | | | BAHRAINI | RATE,ESTIMATED | | MEDICAL | | | | mL/min/1.75c9Jucq than | | CENTER - | | [...] [address] | [place] | [phone] | | [facility] | | [address] | | | - [...] 6.7 | 4.0 - 11.0 K/uL | [facility] | | | | | | [facility] | | | | | | MEDICAL | | | | | | CENTER - | | | | | | LABORATORY | | + +-------+ + + + | RBC | 4.98 | 4.30 - 5.70 | [facility] | | | | | M/uL | . [place] | | | | [...] [address] | [place] | [phone] | | [facility] | | [address] | | | - LABORATORY | | | | + + + + + documented in this encounter Visit Diagnoses + + | Diagnosis | + + | Bronchitis - Primary Bronchitis, not specified as acute or chronic | + + documented in this encounter"
--- OUTSIDE RECORDS SUMMARY | ~2019-12-06 | XMS | Encounter Summary ---
Demographics + + + | Address | [address] | | | [place] [address] | + + + | Home Phone [...] Providers + +------+ + | Care It Applications Developer Name | Role | Phone | + +------+ + | Michael Amanda DO | PCP | | + +------+ + Encounter Details +--------+ + + + + | Date | Type | Department | Care Team | Description | +--------+ + + + + | 01/31/ | Hospital | [facility] | Adrian Gutierrez MD | | | 2012 | Encounter | [facility] | [address] | | | | | EMERGENCY CENTER | [place], [place] | | | | | [address] | [address] | | | | | [place] | [phone] | | | | | [address] | | | | | | [phone] | | | +--------+ + + + [...] + + + +---------+ + + | [place]-3 Fatty | CAPS, one capsule by | [...] | | | | | [place] [address] | | | | | | [phone] | | | | | | | | +--------+---------+ + + + | 01/01/ | Office | Cardiology | Silvia, | | | 2019 | Visit | | PARISA Vernon [address] | | | | | | [place], | | | | | | [place] [address] | | | | | | [phone] | | | | | | | [...] + + + | Exam Performed Location: [facility] TWO-VIEW | MISCELANIOUS | | CHEST CLINICAL [...] | an acute cardiopulmonary process. S: SQ ([id number]) Signed by: | | | JAYNE SPEAR MD | | + + + + + | Procedure Note | + + | Kalpesh Brown Conversion - 09/13/2013 10:25 PM PDT Exam Performed Location[facility] INFORMATION:Shortness of | | breath.COMPARISON:None.FINDINGS:There is a left subclavian dual lead cardiac pacer. The | | heart sizeand mediastinal contours are normal. The pulmonary vasculature isnormal. No | | focal airspace opacities, pleural effusions, orpneumothorax. Cervical fusion hardware | | is noted. No acute osseousfindings.IMPRESSION:No evidence of an acute cardiopulmonary | | process.S: SQ ([id number]) Signed by: JAYNE SPEAR MD | |COMPARISON: [...] | | | | | |S: SQ ([id number]) Signed by: JAYNE SPEAR MD | + + + +---------+ + + | Performing | Address | City/State/Zipcode | Phone Number | | Organization | | | | + +---------+ + + | MISCELLANEOUS LAB | | | [phone] | + +---------+ + + | MISCELANIOUS LAB | | | [phone] | + +---------+ + + Troponin I [...] + + | YESSY JONES | [address] | [place] [address] | | | [facility] | | | | | LABORATORY | | | | + + + + + | [facility]Y JONES | | | | | [facility] [...] | [address] | [place] [address] | | | [facility] | | | | | [...] + + + + + | YESSY JONSE | [address] | [place] [address] | | | [facility] | | | | | LABORATORY | | | | + + + + + | YESSY JONES | | | | | [facility] [...] + + | YESSY JONES | [address] | [place] [address] | | | [facility] | | | | | LABORATORY | | | | + + + + + | [facility]Y JONES | | | | | [facility] | | | | | LABORATORY | [...] + + | Glucose | 154 (H)Comment: Lithuanian | 65 - 99 mg/dL | [facility] | | | | Diabetes Association | [...] | | | | failure.For | | [place] | | | | Americans, multiply the [...] + + | YESSY JONES | [address] | [place] [address] | | | [facility] | | | | | LABORATORY | | | | + + + + + | [facility]Y JONES | | | | | [facility] | | | | | LABORATORY | | | | + + + + + documented in this encounter Visit Diagnoses Not on filedocumented in this encounter"
--- OUTSIDE RECORDS SUMMARY | ~2019-12-06 | XMS | Encounter Summary ---
Demographics + + + | Address | [address] | | | [place] [address] | + + + | Home Phone [...] Providers + +------+ + | Care Supervisor Pressing Department Name | Role | Phone | [...] + | 01/02/ | Telephone | [facility] | Daljit Singletary, | Other (chest pain) | | 2018 | | CARDIOLOGY [address] | MD [address] | | | | | [place], | [place], | | | | | [place] [address] | [place] [address] | | | | | [phone] | [phone] | | | | | | | [...] | 12/18/ | Office | Gastroenterology | Dairn Gandhi | | | 2019 | Visit | | MD Jacek [address] | | | | | | [place] | | | | | | [place] [address] | | | | | | [phone] | | | | | | | | +--------+---------+ + + + | 01/01/ | Office | Cardiology | Silvia, | | | 2019 | Visit | | PARISA Vernon [address] | | | | | | [place] | | | | | | [place] [address] | | | | | | [phone] | | | | | | | | +--------+---------+ + + + documented as of this encounter Visit Diagnoses Not on filedocumented in this encounter"
--- OUTSIDE RECORDS SUMMARY | ~2019-12-06 | XMS | Encounter Summary ---
Demographics + + + | Address | [address] | | | [place] [address] | + + + | Home Phone [...] Providers + +------+ + | Care Machine Technician Name | Role | Phone | [...] Show | | 2012 | | [facility] [place] | DO [address] | | | | | [address] | [place] | | | | | [place] | [address] | | | | | [address] | | | | | | [phone] | | | +--------+ + + + [...] | | | | | [place] [address] | | | | | | [phone] | | | | | | | | +--------+---------+ + + + | 01/01/ | Office | Cardiology | Silvia, | | | 2019 | Visit | | PARISA [place] [address] | | | | | | [place], | | | | | | [place] [address] | | | | | | [phone] | | | | | | | | +--------+---------+ + + + documented as of this encounter Visit Diagnoses Not on filedocumented in this encounter"
--- OUTSIDE RECORDS SUMMARY | ~2019-12-06 | XMS | Encounter Summary ---
Demographics + + + | Address | [address] | | | [place] [address] | + + + | Home Phone [...] Providers + +------+ + | Care Network Internship Name | Role | Phone | + +------+ + PCP | Unavailable | + +------+ + Encounter Details +--------+ + + + + | Date | Type | Department | Care Team | Description | +--------+ + + + + | [facility] | Evan Gandara MD | | | 2005 | Encounter | MED CTR LABORATORY | [address] [facility] | | | | | [address] | [place] | | | | | [place] | [address] | | | | | [address] | | | | | | [phone] | | | +--------+ + + + [...] | | | | | [place] [address] | | | | | | [phone] | | | | | | | | +--------+---------+ + + + | 01/01/ | Office | Cardiology | Silvia, | | | 2020 | Visit | | PARISA Vernon [address] | | | | | | [place], | | | | | | [place] [address] | | | | | | [phone] | | | | | | | | +--------+---------+ + + + documented as of this encounter Visit Diagnoses Not on filedocumented in this encounter"
--- OUTSIDE RECORDS SUMMARY | ~2019-12-06 | XMS | Encounter Summary ---
Demographics + + + | Address | [address] | | | [place] [address] | + + + | Home Phone [...] + +------+ + | Care Criminal Justice Lawyer Name | Role | Phone | [...] | unspecified | MD Jacek | [address] | | | | | type | [address] | [place], | | | | | Unintentiona | [place] | [place] [address] | | | | | l weight | [place], [place] | Phone: | | | | | loss | [phone] | [phone] | | | | | Procedures | Phone: | Fax: | | | | | [facility] | [phone] | [phone] | | | | | INTRALUMINAL | Fax: | | | | | | | [phone] | | | | | | ESOPHAGUS-IL [...] (Primary Dx); | | | | [address] [place], [place] | [place] [address] | Unintentional weight | | | | [address] | [phone] | loss | | | | [phone] | | | +--------+ + + + [...] | | | | | [place] [id number] | | | | | | [phone] | | | | | | | | +--------+---------+ + + + | 01/01/ | Office | Cardiology | Silvia, | | | 2019 | Visit | | PARISA [place] [address] | | | | | | [place] | | | | | | [place] [address] | | | | | | [phone] | | | | | | | [...]
--- OUTSIDE RECORDS SUMMARY | ~2019-12-06 | XMS | Encounter Summary ---
Demographics + + + | Address | [address] | | | [place] [address] | + + + | Home Phone [...] Providers + +------+ + | Care Manager Park Name | Role | Phone | + [...] | | CARDIOLOGY [address] | [address] | | | | | [place], | [place], | | | | | [place] [address] | [place] [address] | | | | | [phone] | [phone] | | | | | | | [...] | | | | | [place] [address] | | | | | | [phone] | | | | | | | | +--------+---------+ + + + | 01/01/ | Office | Cardiology | [place], | | | 2019 | Visit | | PARISA Vernon [address] | | | | | | [place], | | | | | | [place] [address] | | | | | | [phone] | | | | | | | | +--------+---------+ + + + documented as of this encounter Visit Diagnoses Not on filedocumented in this encounter"
--- OUTSIDE RECORDS SUMMARY | ~2019-12-06 | XMS | Encounter Summary ---
Demographics + + + | Address | [address] | | | [place] [address] | + + + | Home Phone [...] Providers + +------+ + | Care Utility Sales Representative Name | Role | Phone [...] Refill | | 2014 | | MEDIC[facility] | DO [address] | | | | | [address] | [place] | | | | | [place], [place] | [address] | | | | | [address] | | | | | | [phone] | | | +--------+--------+ + + + [...] | | | | | [place] [address] | | | | | | [phone] | | | | | | | | +--------+---------+ + + + | 01/01/ | Office | Cardiology | [place], | | | 2019 | Visit | | PARISA Vernon [address] | | | | | | [place], | | | | | | [place] [address] | | | | | | [phone] | | | | | | | | +--------+---------+ + + + documented as of this encounter Visit Diagnoses Not on filedocumented in this encounter"
--- OUTSIDE RECORDS SUMMARY | ~2019-12-06 | XMS | Encounter Summary ---
Demographics + + + | Address | [address] | | | [place] [address] | + + + | Home Phone [...] Providers + +------+ + | Care Hat Cutter Name | Role | Phone | [...] + | 09/01/ | Telephone | [facility] | [place], | Appointment | | 2016 | | CARDIOLOGY [address] | PARISA [place] [address] | (Reschedule) | | | | [place], | [place], | | | | | [place] [address] | [place] [address] | | | | | [phone] | [phone] | | | | | | | [...] | | | | | [place] [address] | | | | | | [phone] | | | | | | | | +--------+---------+ + + + | 01/01/ | Office | Cardiology | [place], | | | 2019 | Visit | | PARISA Vernon [address] | | | | | | [place], | | | | | | [place] [address] | | | | | | [phone] | | | | | | | | +--------+---------+ + + + documented as of this encounter Visit Diagnoses Not on filedocumented in this encounter"
--- OUTSIDE RECORDS SUMMARY | ~2019-12-06 | XMS | Encounter Summary ---
Demographics + + + | Address | [address] | | | [place] [address] | + + + | Home Phone [...] Team Providers + +------+ + | Care Loop Sewer Name | Role | Phone | [...] [place] | | | | | | [address] | | | | | | [phone] | | | | | | | [...] | | | | | [place] [address] | | | | | | [phone] | | | | | | | | +--------+---------+ + + + | 01/01/ | Office | Cardiology | [place], | | | 2020 | Visit | | PARISA Vernon [address] | | | | | | [place], | | | | | | [place] [address] | | | | | | [phone] | | | | | | | | +--------+---------+ + + + documented as of this encounter Visit Diagnoses Not on filedocumented in this encounter"
--- OUTSIDE RECORDS SUMMARY | ~2019-12-06 | XMS | Encounter Summary ---
Demographics + + + | Address | [address] | | | [place] [address] | + + + | Home Phone [...] | [facility] | | [...] Providers + +------+ + | Care Third Miller Name | Role | Phone | + [...] [address] | | | | | [place], | [place], | | | | | [place] [address] | [place] [address] | | | | | [phone] | [phone] | | | | | | | [...] | | | | | [place] [address] | | | | | | [phone] | | | | | | | | +--------+---------+ + + + | 01/01/ | Office | Cardiology | [place], | | | 2019 | Visit | | PARISA Vernon [address] | | | | | | [place], | | | | | | [place] [address] | | | | | | [phone] | | | | | | | [...] Resulting Agency Comment | + + | [facility] | + + + +---------+ + + [...] Agency Comment | + + | [facility] | + + + +---------+ + [...] Resulting Agency Comment | + + | [facility] | + + + +---------+ + [...] Agency Comment | + + | [facility] | + + + +---------+ + [...] Resulting Agency Comment | + + | [facility] | + + + +---------+ [...] Resulting Agency Comment | + + | [facility] | + + + +---------+ + + [...] Resulting Agency Comment | + + | [facility] | + + + +---------+ + [...] Resulting Agency Comment | + + | [facility] | + + + +---------+ + [...] Resulting Agency Comment | + + | [facility] | + + + +---------+ + [...] Resulting Agency Comment | + + | [facility] | + + + +---------+ [...] Resulting Agency Comment | + + | [facility] | + + + +---------+ + [...] Resulting Agency Comment | + + | [facility] | + + + +---------+ + [...] Resulting Agency Comment | + + | [facility] | + + + +---------+ + + [...] Resulting Agency Comment | + + | [facility] | + + + +---------+ + [...] Agency Comment | + + | [facility] | + + + +---------+ + [...] Resulting Agency Comment | + + | [facility] | + + + +---------+ + [...] Resulting Agency Comment | + + | [facility] | + + + +---------+ + [...] Resulting Agency Comment | + + | [facility] | + + + +---------+ + [...] Resulting Agency Comment | + + | [facility] | + + + +---------+ + + [...]
--- OUTSIDE RECORDS SUMMARY | ~2019-12-06 | XMS | Encounter Summary ---
Demographics + + + | Address | [address] | | | [place] [address] | + + + | Home Phone [...] | | | | CENTER [address] | [address] | | | | | [place] | [place] | | | | | [address] | [address] | | | | | [phone] | | | +--------+ + + + [...] + + + +---------+ + + | Scott-3 Fatty | CAPS, one capsule by | [...] | | | | | | | qagan tayagungin coronary | | | | | | | artery of qagan tayagungin | | | | | | | [...] | | | | | [place] [address] | | | | | | [phone] | | | | | | | | +--------+---------+ + + + | 01/01/ | Office | Cardiology | [place], | | | 2020 | Visit | | PARISA [place] [address] | | | | | | [place], | | | | | | [place] [address] | | | | | | [phone] | | | | | | | [...] | | | | | | [employer] | | | | | [...] [address] | [place] | [phone] | | [facility] | | [address] | | | - LABORATORY | | [...] + | [facility] | [address] | [place] | [phone] | | [facility] | | [address] | | | - LABORATORY | | [...] use as of January 18 | | [facility] | | | | 2018. [...] + | [facility] | [address] | [place] | [phone] | | [facility] | | [address] | | | - LABORATORY | | [...] | mL/min/1.73m2 | MICHELLE | | | MARSHALLESE | RATE,ESTIMATED | | MEDICAL | | | | mL/min/1.83q7Jpzz than | | CENTER - | | [...] [address] | [place] | [phone] | | [facility] | | [address] | | | - LABORATORY | | [...] + | [facility] | [address] | [place] | [phone] | | [facility] | | [address] | | | - LABORATORY | | [...] [address] | [place] | [phone] | | [facility] | | [address] | | | - LABORATORY | | [...] | | | | ANGELA MARADIAGA MD ([id number]) | | | | | | on [...] | | | | | Patient Address: [address] [place] [address] | | | | | | | [place] [address], | | | | | | + + + +------+---+---+ +---+---+ | | | +---+---+ documented in this encounter
--- OUTSIDE RECORDS SUMMARY | ~2019-12-06 | XMS | Encounter Summary ---
Demographics + + + | Address | [address] [place] [address] [address] | | | [place] [address] | + + + | Home Phone [...] [place] | | | | | [address] | | + + + + + [...] as of this encounter Progress Notes Interface, Investment Banking Associate In - 07/19/2006 3:05 AM PDTCLINIC DATE: 06/13/2002 [facility] REFERRING PHYSICIAN: Eugene Vera D.O. [address] [place] [address] Mr. Sanchez is a new patient. He [...] proceed. Martell Allen M.D. ELIZABETH / KATTY [id number] / [id number] / [id number] / [id number] cc: Eugene Vera D.O. [address] [place] [id number] signed by Interface, Investment Banking Associate In at 07/19/2006 3:0 5 AM PDTdocumented in this encounter Plan of Treatment Not on filedocumented as of this encounter Visit Diagnoses Not on filedocumented in this encounter
--- OUTSIDE RECORDS SUMMARY | ~2019-12-06 | XMS | Encounter Summary ---
Demographics + + + | Address | [address] | | | [place] [address] | + + + | Home Phone [...] | [facility] | | | [...] Providers + +------+ + | Care Machine Feeder Raw Stock Name | Role | Phone | + +------+ + PCP | Unavailable | + +------+ + Encounter Details +--------+ + + + + | Date | Type | Department | Care Team | Description | +--------+ + + + + | 05/13/ | [facility] | [facility] | Dom Graham, | | | 2010 | Encounter | MED CTR EMERGENCY | [address] | | | | | CENTER [address] | [place] | | | | | [place] | [address] | | | | | [address] | | | | | | [phone] | | | +--------+ + + + [...] | | | | | | [place] [address] | | | | | | [phone] | | | | | | | | +--------+---------+ + + + | 01/01/ | Office | Cardiology | [place], | | | 2020 | Visit | | PARISA [place] [address] | | | | | | [place], | | | | | | [place] [address] | | | | | | [phone] | | | | | | | [...] | | | | | the [employer] | | | | | | Access Analyzer. | | | | + + + + + + + + | Specimen | + + | | + + + + + + + | Performing | Address | City/State/Zipcode | Phone Number | | Organization | | | | + + + + + | [facility] | [address] | [place] | [phone] | | [facility] | | [address] | | | - LABORATORY | | | | + + + + + | [facility] | [address] | [place] | | | [facility] | | [address] | | | - LABORATORY | | [...] | | | | | | [facility] | | | | | | MEDICAL [...] | | | | | gm/dL | . MICHELLE | | | | [...] + | [facility] | [address] | [place] | [phone] | | [facility] | | [address] | | | - LABORATORY | | | | + + + + + | [facility] | [address] | [place] | | | [facility] | | [address] | | | - LABORATORY | | [...] 4.1 | 3.2 - 5.0 gm/dL | [facility] | | | | | | [facility] | | | | | | MEDICAL | | | | | | CENTER - | | | | | | LABORATORY | | + + + + + + | BUN | 8 | 7 - 18 mg/dL | [facility] | | | | | | [facility] | | | | | | MEDICAL | | | | | | CENTER - | | | | | | LABORATORY | | + + + + + + | Creatinine | 0.95 | 0.60 - 1.30 | [facility] | | | | | mg/dL | [...] 3.6 | 3.5 - 5.1 mEq/l | [facility] | | | | | [...] + | [facility] | [address] | [place] | [phone] | | [facility] | | [address] | | | - LABORATORY | | | | + + + + + | [facility] | [address] | [place] | | | [facility] | | [address] | | | - LABORATORY | | [...] | | | | | the [employer] [place] | | | | | | Access Analyzer. | | | | + + + + + + + + | Specimen | + + | | + + + + + + + | Performing | Address | City/State/Zipcode | Phone Number | | Organization | | | | + + + + + | [facility] | [address] | [place], [place] | [phone] | | [facility] | | [address] | | | - LABORATORY | | | | + + + + + | [facility] | [address] | [place], [place] | | | [facility] | | [address] | | | - LABORATORY | | | | + + + + + XR Chest AP Portable (05/13/2011 3:01 PM PDT) + + | Specimen | + + | | + + + + + | Narrative | Performed At | + + + | [facility] | [facility] | | [address] [facility] | [facility] | | PORTABLE CHEST CLINICAL | DIAG [...] Transcribed Date/Time: | | | 05/13/2011 17:06 Butt Sawyer: <Electronically Signed | | | by Jama Solis MD> 05/13/112038 | | + + + + + | Procedure Note | + + | Kevin, Rad Conversion - 12/29/2013 3:[address] [facility] | | Diagnostic Imaging Department [address] [place] [address] | | PORTABLE CHEST CLINICAL HISTORY: TACHYCARDIA. [...] 16:57 | |Transcribed Date/Time: 05/13/2011 17:06 | |Butt Sawyer: | |<Electronically Signed by Jama Solis MD> [...]
--- OUTSIDE RECORDS SUMMARY | ~2019-12-06 | XMS | Encounter Summary ---
Demographics + + + | Address | [address] | | | [place] [address] | + + + | Home Phone [...] Team Providers + +------+ + | Care Dungeon Master Name | Role | Phone | + +------+ + PCP | Unavailable | + +------+ + Encounter Details +--------+ + + + + | Date | Type | Department | Care Team | Description | +--------+ + + + + | 09/13/ | [facility] | [facility] | Jonathan, | | | 2009 | Encounter | MED CTR EMERGENCY | Martell Cr MD [address] | | | | | CENTER [address] | [address] | | | | | [place] | [place] [address] | | | | | [address] | [phone] | | | | | [phone] | | | +--------+ + + + [...] | | | | | [place], [place] [address] | | | | | | [phone] | | | | | | | | +--------+---------+ + + + | 01/01/ | Office | Cardiology | [place], | | | 2020 | Visit | | PARISA [place] [address] | | | | | | [place], | | | | | | [place] [address] | | | | | | [phone] | | | | | | | | +--------+---------+ + + + documented as of this encounter Visit Diagnoses Not on filedocumented in this encounter"
--- OUTSIDE RECORDS SUMMARY | ~2019-12-06 | XMS | Encounter Summary ---
Demographics + + + | Address | [address] | | | [place] [address] | + + + | Home Phone [...] + +------+ + | Care Regional Sales Engineer Name | Role | Phone [...] MED CTR NUCLEAR | MD [address] | Presence of | | | | MEDICINE [address] | [place], | permanent cardiac | | | | [place], | [place] [address] | pacemaker; | | | | [address] | [phone] | Sinoatrial node | | | | [phone] | | dysfunction (HCC) | +--------+ + [...] + + + +---------+ + + | Willow-3 Fatty | CAPS, one capsule by | [...] | | | | | [place] [address] | | | | | | [phone] | | | | | | | | +--------+---------+ + + + | 01/01/ | Office | Cardiology | [place], | | | 2019 | Visit | | PARISA [place] [address] | | | | | | [place], | | | | | | [place] [address] | | | | | | [phone] | | | | | | | [...]
--- OUTSIDE RECORDS SUMMARY | ~2019-12-06 | XMS | Encounter Summary ---
Demographics + + + | Address | [address] | | | [place] [address] | + + + | Home Phone [...] Team Providers + +------+ + | Care Fertilizer Processing Supervisor Name | Role | Phone [...] | | CARDIOLOGY [address] | [address] | | | | | [place], | [place], | | | | | [place] [address] | [place] [address] | | | | | [phone] | | | | | | | [...] | | | | | [place] [address] | | | | | | [phone] | | | | | | | | +--------+---------+ + + + | 01/01/ | Office | Cardiology | [place], | | | 2019 | Visit | | PARISA [place] [address] | | | | | | [place], | | | | | | [place] [address] | | | | | | [phone] | | | | | | | | +--------+---------+ + + + documented as of this encounter Visit Diagnoses Not on filedocumented in this encounter"
--- OUTSIDE RECORDS SUMMARY | ~2019-12-06 | XMS | Encounter Summary ---
Demographics + + + | Address | [address] | | | [place] [address] | + + + | Home Phone [...] Providers + +------+ + | Care Medical Microbiologist Name | Role | Phone | + [...] + + | 04/24/ | Office | [facility] | [place], | Symptomatic PVCs | | 2012 | Visit | CARDIOLOGY [address] | [place] [address] | (Primary Dx); CAD; | | | | [place], | [place], | Hyperlipidemia; | | | | [place] [address] | [place] [address] | PACEMAKER, PERMANENT | | | | [phone] | [phone] | - [employer] | | | | [...] tablet by mouth Daily. 30 tablet 6 Alna-3 Fatty Acids (SALMON OIL-1000 PO) CAPS, one [...] Reviewed records from PCP and notes from [facility]. Assessment: 1. Symptomatic PVCs status post [...] to go back in 3 days to [place] for an attempt of ablation under general [...] He is upgraded to class I of [place] [employer] functional class. There are no [...] made to ensure accuracy; however, inadvertent computerized requirements manager errors may be pre sent. documented [...] | | | | | [place] [address] | | | | | | [phone] | | | | | | | | +--------+---------+ + + + | 01/01/ | Office | Cardiology | [place], | | | 2019 | Visit | | PARISA [place] [address] | | | | | | [place], | | | | | | [place] [address] | | | | | | [phone] | | | | | | | | +--------+---------+ + + + documented as of this encounter Visit Diagnoses + + | Diagnosis | + + | Symptomatic PVCs - Primary Other premature beats | + + | CAD Coronary atherosclerosis of unspecified type of vessel, viejas or graft | + + | Hyperlipidemia Other and unspecified hyperlipidemia | + + | PACEMAKER, PERMANENT - [employer] 06/14/09GRANT Cardiac pacemaker in situ | + + documented in this encounter
--- OUTSIDE RECORDS SUMMARY | ~2019-12-06 | XMS | Encounter Summary ---
Demographics + + + | Address | [address] | | | [place] [address] | + + + | Home Phone [...] Providers + +------+ + | Care Pipe Covering Molder Name | Role | Phone | [...] [address] | | | | | [address] | [place] | | | | | [phone] | [address] | | | | | | [phone] | | | | | | | [...] Notes by Kylah Fraser CMA at 04/11/18 3657 Author: Kylah Fraser CMA Service: (none) Author Type: Medical Lab Tech Instructor Filed: 04/19/18 1118 Encounter Date: 04/11/2018 Status: Signed Communication Consultant: Kylah Fraser CMA (Medical Lab Tech Instructor) See telephone encounter 04/19/18. Karen pfeiffer in [...] | | | | | [place] [address] | | | | | | [phone] | | | | | | | | +--------+---------+ + + + | 01/01/ | Office | Cardiology | [place], | | | 2019 | Visit | | PARISA [place] [address] | | | | | | [place] | | | | | | [place] [address] | | | | | | [phone] | | | | | | | [...]
--- OUTSIDE RECORDS SUMMARY | ~2019-12-06 | XMS | Encounter Summary ---
Demographics + + + | Address | [address] | | | [place] [address] | + + + | Home Phone [...] Amanda, | | | 2013 | | [facility] | DO [address] | | | | | [address] | [place] | | | | | [place] | [address] | | | | | [address] | | | | | | [phone] | | | +--------+ + + + [...] | | | | | [place] [address] | | | | | | [phone] | | | | | | | | +--------+---------+ + + + | 01/01/ | Office | Cardiology | [place], | | | 2019 | Visit | | PARISA [place] [address] | | | | | | [place], | | | | | | [place] [address] | | | | | | [phone] | | | | | | | [...] + | [facility] | [address] | [place], [place] | [phone] | | [facility] | | [address] | | | - LABORATORY | | | | + + + + + | [facility] | [address] | [place] | | | [facility] | | [address] | | | - LABORATORY | | [...] | | | | | | | [place], | | | | | | External [...]
--- OUTSIDE RECORDS SUMMARY | ~2019-12-06 | XMS | Encounter Summary ---
Demographics + + + | Address | [address] | | | [place] [address] | + + + | Home Phone [...] Providers + +------+ + | Care Computer Graphics Illustrator Name | Role | Phone | [...] | | [address] | [place] [address] | | | | | [place] | [phone] | | | | | [address] | | | | | | [phone] | | | +--------+ + + + [...] | | | | | [place] [address] | | | | | | [phone] | | | | | | | | +--------+---------+ + + + | 01/01/ | Office | Cardiology | [place], | | | 2019 | Visit | | PARISA [place] [address] | | | | | | [place], | | | | | | [place] [address] | | | | | | [phone] | | | | | | | | +--------+---------+ + + + documented as of this encounter Visit Diagnoses Not on filedocumented in this encounter"
--- OUTSIDE RECORDS SUMMARY | ~2019-12-06 | XMS | Encounter Summary ---
Demographics + + + | Address | [address] | | | [place] [address] | + + + | Home Phone [...] Providers + +------+ + | Care Preparation Department Supervisor Name | Role | Phone | + +------+ + PCP | Unavailable | + +------+ + Encounter Details +--------+ + + + + | Date | Type | Department | Care Team | Description | +--------+ + + + + | 12/16/ | Hospital | [facility] | | | | 2010 | Encounter | MED CTR LABORATORY | | | | | | [address] [place] | | | | | | [place] | | | | | | [address] | | | | | | [phone] | | | +--------+ + + + [...] | | | | | [place] [address] | | | | | | [phone] | | | | | | | | +--------+---------+ + + + | 01/01/ | Office | Cardiology | [place], | | | 2020 | Visit | | PARISA [place] [address] | | | | | | [place], | | | | | | [place] [address] | | | | | | [phone] | | | | | | | | +--------+---------+ + + + documented as of this encounter Visit Diagnoses Not on filedocumented in this encounter"
--- OUTSIDE RECORDS SUMMARY | ~2019-12-06 | XMS | Encounter Summary ---
Demographics + + + | Address | [address] | | | [place] [address] | + + + | Home Phone [...] Providers + +------+ + | Care Library Science Instructor Name | Role | Phone [...] [place] | | | | | [address], [place] | [address] | | | | | [address] | | | | | | [phone] | | | +--------+ + + + [...] | | | | | [place] [address] | | | | | | [phone] | | | | | | | | +--------+---------+ + + + | 01/01/ | Office | Cardiology | [place], | | | 2019 | Visit | | PARISA [place] [address] | | | | | | [place], | | | | | | [place] [address] | | | | | | [phone] | | | | | | | [...]
--- OUTSIDE RECORDS SUMMARY | ~2019-12-06 | XMS | Encounter Summary ---
Demographics + + + | Address | [address] | | | [place] [address] | + + + | Home Phone [...] Team Providers + +------+ + | Care Lgsw Name | Role | Phone | + +------+ + | Kirk French MD | PCP | | + +------+ + Encounter Details +--------+ + + + + | Date | Type | Department | Care Team | Description | +--------+ + + + + | 06/19/ | Orders Only | [facility] | Fabrice [place], | Abnormal weight | | 2019 | | SYSTEM GENERIC OP | MD [address] | loss; Anxiety | | | | CONVERSION [address] [place], [place] | disorder; Chronic | | | | [address] [place], [place] | [address] | pain syndrome; | | | | [address] | | Obesity; Neuralgia | | | | [phone] | | and neuritis, | | | [...] | | | | | [place] [id number] | | | | | | [phone] | | | | | | | | +--------+---------+ + + + | 01/01/ | Office | Cardiology | [place], | | | 2019 | Visit | | PARISA [place] [address] | | | | | | [place], | | | | | | [place] [address] | | | | | | [phone] | | | | | | | [...]
--- OUTSIDE RECORDS SUMMARY | ~2019-12-06 | XMS | Encounter Summary ---
Demographics + + + | Address | [address] | | | [place] [address] | + + + | Home Phone [...] Providers + +------+ + | Care Signal Engineer Name | Role | Phone | [...] Refill | | 2013 | | [facility] [place] | DO [address] | | | | | [address] | [place] | | | | | [place] | [address] | | | | | [address] | | | | | | [phone] | | | +--------+--------+ + + + [...] | | | | | [place] [address] | | | | | | [phone] | | | | | | | | +--------+---------+ + + + | 01/01/ | Office | Cardiology | [place], | | | 2019 | Visit | | PARISA [place] [address] | | | | | | [place], | | | | | | [place] [address] | | | | | | [phone] | | | | | | | | +--------+---------+ + + + documented as of this encounter Visit Diagnoses Not on filedocumented in this encounter"
--- OUTSIDE RECORDS SUMMARY | ~2019-12-06 | XMS | Encounter Summary ---
Demographics + + + | Address | [address] | | | [place] [address] | + + + | Home Phone [...] Team Providers + +------+ + | Care Dough Brake Machine Operator Name | Role | Phone | + +------+ + PCP | Unavailable | + +------+ + Encounter Details +--------+ + + + + | Date | Type | Department | Care Team | Description | +--------+ + + + + | 09/24/ | [facility] | [facility] | Evan Gandara MD | | | 2005 | Encounter | MED CTR XRAY [address] | [address] [facility] | | | | | [place] | [place] | | | | | [place] [address] | [address] | | | | | [phone] | | | +--------+ + + + [...] | | | | | [place] [address] | | | | | | [phone] | | | | | | | | +--------+---------+ + + + | 01/01/ | Office | Cardiology | [place]via, | | | 2020 | Visit | | PAR[place] [address] | | | | | | [place], | | | | | | [place] [address] | | | | | | [phone] | | | | | | | | +--------+---------+ + + + documented as of this encounter Visit Diagnoses Not on filedocumented in this encounter"
--- OUTSIDE RECORDS SUMMARY | ~2019-12-06 | XMS | Encounter Summary ---
Demographics + + + | Address | [address] | | | [place] [address] | + + + | Home Phone [...] Providers + +------+ + | Care Staff Occupational Therapist Name | Role | Phone | [...] 2017 | | CARDIOLOGY [address] | SHEET ROCK INSTALLATION HELPER [address] | | | | | [place], | [place], [place] | | | | | [place] [address] | [address] | | | | | [phone] | | | +--------+--------+ + + + [...] | | | | | [place] [address] | | | | | | [phone] | | | | | | | | +--------+---------+ + + + | 01/01/ | Office | Cardiology | Silvia, | | | 2019 | Visit | | PARISA [place] [address] | | | | | | [place], | | | | | | [place] [address] | | | | | | [phone] | | | | | | | | +--------+---------+ + + + documented as of this encounter Visit Diagnoses Not on filedocumented in this encounter"
--- OUTSIDE RECORDS SUMMARY | ~2019-12-06 | XMS | Encounter Summary ---
Demographics + + + | Address | [address] | | | [place] [address] | + + + | Home Phone [...] Providers + +------+ + | Care Lining Machine Operator Name | Role | Phone | + +------+ + PCP | Unavailable | + +------+ + Encounter Details +--------+ + + + + | Date | Type | Department | Care Team | Description | +--------+ + + + + | 10/13/ | Hospital | [facility] | | | | 2007 | Encounter | MED CTR EMERGENCY | | | | | | [place] [address] | | | | | | [place] | | | | | | [address] | | | | | | [phone] | | | +--------+ + + + [...] | | | | | [place] [address] | | | | | | [phone] | | | | | | | | +--------+---------+ + + + | 01/01/ | Office | Cardiology | [place]via, | | | 2020 | Visit | | PARISA [place] [address] | | | | | | [place], | | | | | | [place] [address] | | | | | | [phone] | | | | | | | | +--------+---------+ + + + documented as of this encounter Visit Diagnoses Not on filedocumented in this encounter"
--- OUTSIDE RECORDS SUMMARY | ~2019-12-06 | XMS | Encounter Summary ---
Demographics + + + | Address | [address] [place] [address] [address] | | | [place] [address] | + + + | Home Phone [...] [place] | | | | | [address] | | + + + + + Care Team Providers + +------+ + | Care Accountant Bookkeeper Name | Role | Phone | [...] 2019 | | Center at [facility] [address] | Gastroenterology | Gastroenterology | | | | ILA Tremayne Crane | | | | | | Mailcode: [place] | | | | | | [facility] and | | | | | | [place] [address] | | | | | | [place], [place] | | | | | | [address] | | | | | | [phone] | | | +--------+ + + + [...]
--- OUTSIDE RECORDS SUMMARY | ~2019-12-06 | XMS | Encounter Summary ---
Demographics + + + | Address | [address] | | | [place] [address] | + + + | Home Phone [...] Providers + +------+ + | Care Science Professor Name | Role | Phone | + +------+ + PCP | Unavailable | + +------+ + Encounter Details +--------+ + + + + | Date | Type | Department | Care Team | Description | +--------+ + + + + | 12/16/ | [facility] | [facility] | Naresh Mckeon | | | 2010 | Encounter | MED CTR SLEEP | MD Chaya [address] | | | | | CENTER [address] | [place] | | | | | [place] | [place] [address] | | | | | [address] | [phone] | | | | | [phone] | | | +--------+ + + + [...] | | | | | [place] [address] | | | | | | [phone] | | | | | | | | +--------+---------+ + + + | 01/01/ | Office | Cardiology | [place], | | | 2020 | Visit | | PAR[place] [address] | | | | | | [place], | | | | | | [place] [address] | | | | | | [phone] | | | | | | | | +--------+---------+ + + + documented as of this encounter Visit Diagnoses Not on filedocumented in this encounter"
--- OUTSIDE RECORDS SUMMARY | ~2019-12-06 | XMS | Encounter Summary ---
Demographics + + + | Address | [address] | | | [place] [address] | + + + | Home Phone [...] + +------+ + | Care Manager Business Banking Name | Role | Phone | [...] [address] | | | | | [employer] [place], | [employer] [place], | | | | | [place] [address] | [place] [address] | | | | | [phone] | [phone] | | | | | | | [...] | | | | | [place] [address] | | | | | | [phone] | | | | | | | | +--------+---------+ + + + | 01/01/ | Office | Cardiology | [place], | | | 2019 | Visit | | PARISA [place] [address] | | | | | | [place], | | | | | | [place] [address] | | | | | | [phone] | | | | | | | [...] Comment | + + | [facility] | + + + +---------+ + + [...] Comment | + + | [facility] | + + + +---------+ + + [...] Comment | + + | [facility] | + + + +---------+ + + [...]
--- OUTSIDE RECORDS SUMMARY | ~2019-12-06 | XMS | Encounter Summary ---
Demographics + + + | Address | [address] | | | [place] [address] | + + + | Home Phone [...] Team Providers + +------+ + | Care Deaf Teacher Name | Role | Phone | + +------+ + PCP | Unavailable | + +------+ + Encounter Details +--------+ + + + + | Date | Type | Department | Care Team | Description | +--------+ + + + + | 01/14/ | Hospital | [facility] | Deburi, | BACKACHE NOS | | 2004 | Encounter | MEDICAL CENTER | MD Tai [address] | | | | | CLINICAL DECISION | S[place] | | | | | [address] | [place] [address] | | | | | [place], [place] | [phone] | | | | | [address] | | | | | | [phone] | | | +--------+ + + + [...] | | | | | | [address] | | | | | | [place] [address] | | | | | | [phone] | | | | | | | | +--------+---------+ + + + | 01/01/ | Office | Cardiology | [place]via, | | | 2020 | Visit | | PAR[place] [address] | | | | | | [place], | | | | | | [place] [address] | | | | | | [phone] | | | | | | | | +--------+---------+ + + + documented as of this encounter Visit Diagnoses + + | Diagnosis | + + | Backache, unspecified | + + documented in this encounter"
--- OUTSIDE RECORDS SUMMARY | ~2019-12-06 | XMS | Encounter Summary ---
Demographics + + + | Address | [address] | | | [place] [address] | + + + | Home Phone [...] Team Providers + +------+ + | Care Straight Tooth Gear Generator Operator Name | Role | Phone | [...] [address] [place] | | | | | [place], [place] | [address] | | | | | [address] | [place] [address] | | | | | [phone] | [phone] | | | | | | | [...] | | | | | [place] [address] | | | | | | [phone] | | | | | | | | +--------+---------+ + + + | 01/01/ | Office | Cardiology | [place], | | | 2019 | Visit | | PAR[place] [address] | | | | | | [place], | | | | | | [place] [address] | | | | | | [phone] | | | | | | | [...]
--- OUTSIDE RECORDS SUMMARY | ~2019-12-06 | XMS | Encounter Summary ---
Demographics + + + | Address | [address] | | | [place] [address] | + + + | Home Phone [...] Team Providers + +------+ + | Care Rifle Case Repairer Name | Role | Phone | [...] W | | | | | [place], | [place], | | | | | [place] [address] | [place] [address] | | | | | [phone] | [phone] | | | | | | | [...] | | | | | [place] [address] | | | | | | [phone] | | | | | | | | +--------+---------+ + + + | 01/01/ | Office | Cardiology | [place], | | | 2019 | Visit | | PAR[facility] [place] [address] | | | | | | [place] | | | | | | [place] [address] | | | | | | [phone] | | | | | | | | +--------+---------+ + + + documented as of this encounter Visit Diagnoses Not on filedocumented in this encounter"
--- OUTSIDE RECORDS SUMMARY | ~2019-12-06 | XMS | Encounter Summary ---
Demographics + + + | Address | [address] | | | [place] [address] | + + + | Home Phone [...] Team Providers + +------+ + | Care Strong Nitric Operator Name | Role | Phone | [...] [address] | | | | | [address] [place], | [address] [place], | | | | | [place] [address] | [place] [address] | | | | | [phone] | [phone] | | | | | | | [...] | | | | | [place] [address] | | | | | | [phone] | | | | | | | | +--------+---------+ + + + | 01/01/ | Office | Cardiology | [place], | | | 2020 | Visit | | PAR[place] [address] | | | | | | [place], | | | | | | [place] [address] | | | | | | [phone] | | | | | | | | +--------+---------+ + + + documented as of this encounter Visit Diagnoses Not on filedocumented in this encounter"
--- OUTSIDE RECORDS SUMMARY | ~2019-12-06 | XMS | Encounter Summary ---
Demographics + + + | Address | [address] | | | [place] [address] | + + + | Home Phone [...] + + + + | 06/12/ | [facility] | [facility] | Hunter Antunez, | | | 2007 - | Encounter | MED CTR ICU [address] | MD [address] | | | | | [place], | [place] | | | 06/15/ | | [place] [address] | [address] | | | 2007 | | [phone] | | | +--------+ + + + [...] | | | | | [place] [address] | | | | | | [phone] | | | | | | | | +--------+---------+ + + + | 01/01/ | Office | Cardiology | [place], | | | 2020 | Visit | | PAR[place] [address] | | | | | | [place], | | | | | | [place] [address] | | | | | | [phone] | | | | | | | | +--------+---------+ + + + documented as of this encounter Visit Diagnoses Not on filedocumented in this encounter"
--- OUTSIDE RECORDS SUMMARY | ~2019-12-06 | XMS | Encounter Summary ---
Demographics + + + | Address | [address] | | | [place] [address] | + + + | Home Phone [...] + + + + | 02/21/ | [facility] | [facility] | Geri Angel, | | | 2011 | Encounter | MED CTR XRAY [address] | BOX BLANK MACHINE FEEDER [address] | | | | | [place] | St [place] | | | | | [place] [address] | [address] | | | | | [phone] | | | +--------+ + + + [...] | | | | | [place] [address] | | | | | | [phone] | | | | | | | | +--------+---------+ + + + | 01/01/ | Office | Cardiology | [place], | | | 2020 | Visit | | PAR[place] [address] | | | | | | [place], | | | | | | [place] [address] | | | | | | [phone] | | | | | | | | +--------+---------+ + + + documented as of this encounter Visit Diagnoses Not on filedocumented in this encounter"
--- OUTSIDE RECORDS SUMMARY | ~2019-12-06 | XMS | Encounter Summary ---
Demographics + + + | Address | [address] | | | [place] [address] | + + + | Home Phone [...] Providers + +------+ + | Care Business Operations Coordinator Name | Role | Phone | + +------+ + PCP | Unavailable | + +------+ + Encounter Details +--------+ + + + + | Date | Type | Department | Care Team | Description | +--------+ + + + + | 01/21/ | Emergency | [facility] | Kirill Dominique | Unspecified Chest | | 2009 | | [facility]ICAL CENTER | MD Jon[address] | Pain | | | | EMERGENCY CENTER | [address] [place] | | | | | [address] | [address] | | | | | [place] | [phone] | | | | | [address] | | | | | | [phone] | | | +--------+ + + + [...] | | | | | [place] [address] | | | | | | [phone] | | | | | | | | +--------+---------+ + + + | 01/01/ | Office | Cardiology | [place], | | | 2019 | Visit | | PARISA [place] [address] | | | | | | [place], | | | | | | [place] [address] | | | | | | [phone] | | | | | | | | +--------+---------+ + + + documented as of this encounter Visit Diagnoses + + | Diagnosis | + + | Chest pain, unspecified | + + documented in this encounter"
--- OUTSIDE RECORDS SUMMARY | ~2019-12-06 | XMS | Encounter Summary ---
Demographics + + + | Address | [address] [place] [address] [address] | | | [place] [address] | + + + | Home Phone [...] [place] | | | | | [address] | | + + + + + [...] sent to | | | | [facility] | [facility] [place] | ED) | | | | Mailcode: Center | [address] | | | | | for Health and | [phone] | | | | | [facility], [facility] [address] | | | | | | [place], [place] | | | | | | [address] | | | | | | [phone] | | | +--------+ + + + [...]
--- OUTSIDE RECORDS SUMMARY | ~2019-12-06 | XMS | Encounter Summary ---
Demographics + + + | Address | [address] | | | [place] [address] | + + + | Home Phone [...] Organization | [facility] | | | and [...] Providers + +------+ + | Care Foot Doctor Name | Role | Phone | [...] 12/23/ | Telephone | [facility] | Daljit Singletary, | Other (question | | 2015 | | CARDIOLOGY [address] | [address] | about diet | | | | [place], | [place], | medication) | | | | [place] [address] | [place] [address] | | | | | [phone] | [phone] | | | | | | | [...] | | | | | [place] [address] | | | | | | [phone] | | | | | | | | +--------+---------+ + + + | 01/01/ | Office | Cardiology | [place], | | | 2019 | Visit | | PARISA [place] [address] | | | | | | [place] | | | | | | [place] [address] | | | | | | [phone] | | | | | | | | +--------+---------+ + + + documented as of this encounter Visit Diagnoses Not on filedocumented in this encounter"
--- OUTSIDE RECORDS SUMMARY | ~2019-12-06 | XMS | Encounter Summary ---
Demographics + + + | Address | [address] | | | [place] [address] | + + + | Home Phone [...] | 06/17/ | Telephone | [facility] [place] | [place], | Lab Order (due for | | 2015 | | CARDIOLOGY [address] | [place] [address] | fasting labs prior | | | | [place], | [place], | to appt) | | | | [place] [address] | [place] [address] | | | | | [phone] | [phone] | | | | | | | [...] | | | | | [place] [address] | | | | | | [phone] | | | | | | | | +--------+---------+ + + + | 01/01/ | Office | Cardiology | [place], | | | 2019 | Visit | | PARISA [place] [address] | | | | | | [place] | | | | | | [place] [address] | | | | | | [phone] | | | | | | | | +--------+---------+ + + + documented as of this encounter Visit Diagnoses + + | Diagnosis | + + | Hyperlipidemia, mixed - Primary Mixed hyperlipidemia | + + documented in this encounter"
--- OUTSIDE RECORDS SUMMARY | ~2019-12-06 | XMS | Encounter Summary ---
Demographics + + + | Address | [address] | | | [place] [address] | + + + | Home Phone [...] Team Providers + +------+ + | Care Chestnut Tanner Name | Role | Phone | [...] CARDIOLOGY [address] | MD [place] | reprogramming/check | | | | [place], | [place], | [place] | | | | [place] [address] | [place] [id number] | (Primary Dx); | | | | [phone] | [phone] | Pacemaker - | | | | [...] | | | | | [place] [address] | | | | | | [phone] | | | | | | | | +--------+---------+ + + + | 01/01/ Office | Cardiology | [place], | | | 2020 | Visit | | PAR[place] [address] | | | | | | [place], | | | | | | [place] [address] | | | | | | [phone] | | | | | | | [...]
--- OUTSIDE RECORDS SUMMARY | ~2019-12-06 | XMS | Encounter Summary ---
Demographics + + + | Address | [address] | | | [place] [address] | + + + | Home Phone [...] Providers + +------+ + | Care Facilities Mechanical Design Engineer Name | Role | [...] visit | CARDIOLOGY [address] | [address] | reprogramming/check | | | | [place], | [place], | DO [place]LETE | | | | [place] [address] | [place] [address] | (Primary Dx); | | | | [phone] | [phone] | Sinoatrial node | | | | [...] | | | | | [place] [address] | | | | | | [phone] | | | | | | | | +--------+---------+ + + + | 01/01/ | Office | Cardiology | [place], | | | 2019 | Visit | | PARISA [place] [address] | | | | | | [place] | | | | | | [place] [address] | | | | | | [phone] | | | | | | | [...]
--- OUTSIDE RECORDS SUMMARY | ~2019-12-06 | XMS | Encounter Summary ---
Demographics + + + | Address | [address] | | | [place] [address] | + + + | Home Phone [...] Providers + +------+ + | Care Credit Balance Specialist Name | Role | Phone | [...] | Palpitations | [address] | | | | | Procedures | [address] | [address] [place] | | | | | ECHO | [place], | [place], [place] | | | | | Complete | [place] [address] | [address] | | | | | | Phone: | Phone: | | | | | | [phone] | [phone] | | | | | | Fax: | Fax: | | | | | | [phone] | [phone] | +--------+--------+ + + + + Encounter Details +--------+ + + + + | Date | Type | Department | Care Team | Description | +--------+ + + + + | 12/30/ | Hospital | [facility] | TimmyshaistateshaShaistatimmy, | Palpitations | | 2012 - | Encounter | MED CTR XRAY [address] | MD [address] | | | | | [place] | [place], | | | 01/01/ | | [place] [address] | [place] [address] | | | 2012 | | [phone] | [phone] | | | | | | | [...] + + + +---------+ + + | Sleetmute-3 Fatty | CAPS, one capsule by | [...] | | | | | [place] [address] | | | | | | [phone] | | | | | | | | +--------+---------+ + + + | 01/01/ | Office | Cardiology | [place], | | | 2020 | Visit | | PARISA [place] [address] | | | | | | [place], | | | | | | [place] [address] | | | | | | [phone] | | | | | | | [...] Performed At | + + + | [facility] Diagnostic Imaging | [place] | | Department [address] [facility], [place] | [facility] | | [ rep [address]] [ rep [facility] | | st zip] Signed | - IMAGING | | | | | Patient Name: MOE GAY | | | Physician: MIGUELINA : 1960 Age: 52 Sex: M Unit | | | #: [id number] Exam Date: 12/30/12 Location: | | | IMG Report #: [id number] Page: | | | %(RAD)RES..mtdd.print.filter("pg") of %(RAD) | | | RES..mtdd.print.filter("tpg") | | | | | | Accession Number: [id number] | | | E C H O C A R D I O G R A P H Y R E P O R T | | | HEIGHT: 76" WEIGHT: 270# | | | JAVA FRONT END WEB DEVELOPER: JAMEEL REFERRING DR: TIMMY DRAKE DR: | [...] | | | Transcribed Date/Time: 12/30/2012 16:34 Electrical Products Engineer: | | | <<Signature on File>> | | | Suwong | | | MD CLEOPATRA Singletary FASNanette01/02/13 0955 <Electronically signed by | | | Daljit Singletary MD, [facility] CENTERSharee, FACP, FASE, FASNC> Daljit | | | MD CLEOPATRA Singletary 12/30/12 1608 Electrical Products Engineer: [employer] | | | Dypdcucltiayr64/08/13 7484 Daljit Singletary MD FACC | | | FASE | | + + + + + + + + | Performing | Address | City/State/Zipcode | Phone Number | | Organization | | | | + + + + + | [facility] | [address] | [place] | [phone] | | [facility] | | [address] | | | - IMAGING | | | | + + + + + documented in this encounter Visit Diagnoses + + | Diagnosis | + + | Palpitations | + + documented in this encounter
--- OUTSIDE RECORDS SUMMARY | ~2019-12-06 | XMS | Encounter Summary ---
Demographics + + + | Address | [address] | | | [place] [address] | + + + | Home Phone [...] Providers + +------+ + | Care Fruit Coordinator Name | Role | Phone | + +------+ + PCP | Unavailable | + +------+ + Encounter Details +--------+ + + + + | Date | Type | Department | Care Team | Description | +--------+ + + + + | 04/22/ | Hospital | [facility] | | | | 2011 | Encounter | MED CTR XRAY [address] | | | | | | [place] | | | | | | [place] [address] | | | | | | [phone] | | | +--------+ + + + [...] | | | | | [place] [address] | | | | | | [phone] | | | | | | | | +--------+---------+ + + + | 01/01/ | Office | Cardiology | Silvia, | | | 2019 | Visit | | PARISA [place] [address] | | | | | | [place] | | | | | | [place] [address] | | | | | | [phone] | | | | | | | [...] + | [facility] Diagnostic Imaging Department | [facility] | | [address] [facility] | [facility] | | CT MYELOGRAM LUMBAR [...] Transcribed Date/Time: | | | 04/23/2012 11:06 Cement Sack Breaker: <Electronically Signed | | | by Jama Solis MD> 04/24/12 4002 | | + + + + + | Procedure Note | + + | Kevin, Rad Conversion - 12/29/2013 5:27 PM [facility] | | Diagnostic Imaging Department [address] [facility] [place] | | CT MYELOGRAM LUMBAR SPINE, 04/22/2012 [...] <Electronically Signed by Jama Solis MD> 04/24/12 1499 | | | |L3-4: Minimal broad-based disk [...] 10:54 | |Transcribed Date/Time: 04/23/2012 11:06 | |Cement Sack Breaker: | |<Electronically Signed by Jama Solis MD> 04/24/12 4083 | + + + +---------+ + + [...] + | [facility] Diagnostic Imaging Department | [facility] | | [address] [facility] | [facility] | | THORACIC CT [...] Transcribed Date/Time: 04/22/2012 17:32 | | | Cement Sack Breaker: <Electronically Signed by Jama Mason | | | MD Will> 04/23/12 1039 | | + + + + + | Procedure Note | + + | Kevin, Rad Conversion - 12/29/2013 5:27 PM [facility] | | Diagnostic Imaging Department [address] [place] [address] | | THORACIC CT MYELOGRAM CLINICAL HISTORY: [...] 16:56 | |Transcribed Date/Time: 04/22/2012 17:32 | |Cement Sack Breaker: | |<Electronically Signed by Jama Solis MD> [...] + | [facility] Diagnostic Imaging Department | [place] | | [address] | [place] | | CT [...] Similar study from | | | 09/02/2009, [facility]. FINDINGS: Firm bony ankylosis | | [...] Transcribed Date/Time: | | | 04/22/2012 17:25 Cement Sack Breaker: <Electronically Signed | | | by Jama Solis MD> 04/23/12 1039 | | + + + + + | Procedure Note | + + | Kevin, Rad Conversion - 12/29/2013 5:27 PM [facility] | | Diagnostic Imaging Department | | [address] [facility] | | | | | | | [...] | | COMPARISON: Similar study from 09/02/2009, [facility]. | | | | FINDINGS: Firm [...] | Transcribed Date/Time: 04/22/2012 17:25 | | Cement Sack Breaker: | | <Electronically Signed by Jama Soils MD> 04/23/12 1039 | + + + [...] + | [facility] Diagnostic Imaging Department | [facility] | | [address] [facility] | [facility] | | LUMBAR MYELOGRAM INJECTION [...] Transcribed Date/Time: 04/22/2012 16:36 | | | Cement Sack Breaker: <Electronically Signed by Jama Mason | | | MD Will> 04/23/12 1039 | | + + + + + | Procedure Note | + + | Kalpesh Brown Conversion - 12/29/2013 5:27 PM [facility] | | Diagnostic Imaging Department [address] [place] [address] | | LUMBAR MYELOGRAM INJECTION FOR CT [...] 15:51 | |Transcribed Date/Time: 04/22/2012 16:36 | |Cement Sack Breaker: | |<Electronically Signed by Jama Solis MD> [...]
--- OUTSIDE RECORDS SUMMARY | ~2019-12-06 | XMS | Encounter Summary ---
Demographics + + + | Address | [address] | | | [place] [address] | + + + | Home Phone [...] Team Providers + +------+ + | Care Shelter Supervisor Name | Role | Phone | [...] + | 01/02/ | Telephone | [facility] | Daljit Singletary, | Other (chest pain) | | 2018 | | CARDIOLOGY [address] | MD [address] [place] | | | | | [place], | [place], | | | | | [place] [address] | [place] [address] | | | | | [phone] | [phone] | | | | | | | [...] | | | | | [place] [address] | | | | | | [phone] | | | | | | | | +--------+---------+ + + + | 01/01/ | Office | Cardiology | Silvia, | | | 2019 | Visit | | PARISA Vernon [address] | | | | | | [place] | | | | | | [place] [address] | | | | | | [phone] | | | | | | | | +--------+---------+ + + + documented as of this encounter Visit Diagnoses Not on filedocumented in this encounter"
--- OUTSIDE RECORDS SUMMARY | ~2019-12-06 | XMS | Encounter Summary ---
Demographics + + + | Address | [address] | | | [place] [address] | + + + | Home Phone [...] Providers + +------+ + | Care Small Equipment Operator Name | Role | Phone [...] | disease) (Primary | | | | [place], | [place], | Dx); Other chest | | | | [place] [address] | [place] [address] | pain; Chest pain; | | | | [phone] | [phone] | Coronary artery | | | | [...] Sanchez Date: October 23, 2014 : 1960 Hand Method Lasting Machine Operator: Kailey Pruitt RN Device Inletter: High Fidelity Sense (mV) Impedance (?) Capture (V) Capture (ms) A Lead 2.80-4.00 407 1.500 0.09 RV Lead 22.40-31.36 519 2.000 0.09 LV Lead Battery Impedance (?): 658 Battery Voltage (V): 2.79 VA Interval (ms): 155 AR Interval (ms): 240 VA Conduction: Mode Switch Events: 1 % of time: <0.1 -POSTAL SUPERVISOR: <0.1% AP-POSTAL SUPERVISOR: <0.1% -VS: 13.8% AP-VS: 86.1% POSTAL SUPERVISOR: Magnetic Rate: 85 LINDA: 65 LEAH: [...] Kailey Pruitt RN 10/23/2014 15:22 ames Janeen, TACK PICKER - 10/23/2014 2:22 PM PST PATIENT NAME: [...] needed for Chest pain. 25 tablet 12 Chest[place]ridge-3 Fatty Acids (SALMON OIL-1000 PO) CAPS, one [...] out. [facility] 12/25/13, shows non critical coronary artery [...] He is i n class I-II of [place] [employer] functional class. There are no [...] to go back in 3 days to [place] for an attempt of ablation under general [...] dizziness. He is in class I-II of [place] [employer] functional class. There are n [...] this chart may have been created with University[employer] voice recognition software. Occasi onal wrong-word or [...] | | | | | | [place] [address] | | | | | | [phone] | | | | | | | | +--------+---------+ + + + | 01/01/ | Office | Cardiology | Silvia, | | | 2020 | Visit | | PARISA Vernon [address] | | | | | | [place], | | | | | | [place] [address] | | | | | | [phone] | | | | | | | [...] 23, 2014 : | | | 1960 Hand Method Lasting Machine Operator: Kailey Pruitt RN Device Inletter: | | | Medtronic Sense (mV) Impedance (?) Capture (V) Capture (ms) A | | | Lead 2.80-4.00 407 1.500 0.09 RV Lead 22.40-31.36 519 2.000 0.09 | | | LV Lead Battery Impedance (?): 658 Battery Voltage (V): 2.79 | | | VA Interval (ms): 155 AR Interval (ms): 240 VA Conduction: Mode | | | Switch Events: 1 % of time: <0.1 -POSTAL SUPERVISOR: <0.1% AP-POSTAL SUPERVISOR: <0.1% -VS: | | | 13.8% AP-VS: 86.1% POSTAL SUPERVISOR: Magnetic Rate: 85 LINDA: 65 LEAH: [...] sooner with concerns. Electronically signed by: Kailey Villarreal | | | MONROE Pruitt 10/23/2014 15:22 | | + + + + + | Procedure Note | + + | Kailey Pruitt RN - 10/23/2014 3:23 PM PST Formatting of this note might be | | different from the original. DEVICE INTERROGATIONName: Moe Bradley Laura | | Date: October 23, 2014DOB: 1960 Hand Method Lasting Machine Operator: Jun Saul Inletter: | | The Poshpackertronic Sense (mV) Impedance (?) Capture (V) Capture (ms) A Lead 2.80-4.00 407 1.500 | | 0.09 RV Lead 22.40-31.36 519 2.000 0.09 LV Lead Battery Impedance (?): 658 Battery | | Voltage (V): 2.79 VA Interval (ms): 155 AR Interval (ms): 240 VA Conduction: Mode | | Switch Events: 1 % of time: <0.1 -POSTAL SUPERVISOR: <0.1% AP-POSTAL SUPERVISOR: <0.1% -VS: 13.8% AP-VS: 86.1% POSTAL SUPERVISOR: | | Magnetic Rate: 85 LINDA: 65 [...] of unspecified type | | of vessel, pyramid lake or graft | + + | Other chest pain | + + | Chest pain Chest pain, unspecified | + + | Coronary artery disease Coronary atherosclerosis of unspecified type of vessel, | | pyramid lake or graft | + + | [...]
--- OUTSIDE RECORDS SUMMARY | ~2019-12-06 | XMS | Encounter Summary ---
Demographics + + + | Address | [address] | | | [place] [address] | + + + | Home Phone [...] Team Providers + +------+ + | Care Goldsmith Apprentice Name | Role | Phone | + +------+ + | Michael Amanda DO | PCP | | + +------+ + Encounter Details +--------+ + + + + | Date | Type | Department | Care Team | Description | +--------+ + + + + | 06/26/ | Hospital | [facility] | Mihcael Amanda, | Diplopia | | 2012 | Encounter | MED CTR LABORATORY | DO [address] | | | | | [address] [place] | [place], [place] | | | | | [place], [place] | [address] | | | | | [address] | | | | | | [phone] | | | +--------+ + + + [...] + + + +---------+ + + | Carmichael-3 Fatty | CAPS, one capsule by | [...] | | | | | [place] [address] | | | | | | [phone] | | | | | | | | +--------+---------+ + + + | 01/01/ | Office | Cardiology | Silvia, | | | 2019 | Visit | | PARISA Vernon [address] | | | | | | [place], | | | | | | [place] [address] | | | | | | [phone] | | | | | | | [...] + | [facility] | [address] | [place] | [phone] | | [facility] | | [address] | | | - LABORATORY | | | | + + + + + | [facility] | [address] | [place], [place] | | | [facility] | | [address] | | | - LABORATORY | | [...] + | [facility] | [address] | [place] | [phone] | | [facility] | | [address] | | | - LABORATORY | | | | + + + + + | [facility] | [address] | [place] | | | [facility] | | [address] | | | - LABORATORY | | [...] + | [facility] | [address] | [place] | [phone] | | [facility] | | [address] | | | - LABORATORY | | | | + + + + + | [facility] | [address] | [place] | | | [facility] | | [address] | | | - LABORATORY | | [...] + | [facility] | [address] | [place] | [phone] | | [facility] | | [address] | | | - LABORATORY | | | | + + + + + | [facility] | [address] | [place] | | | [facility] | | [address] | | | - LABORATORY | | [...] + | [facility] | [address] | [place], [place] | [phone] | | [facility] | | [address] | | | - LABORATORY | | | | + + + + + | [facility] | [address] | [place], [place] | | | [facility] | | [address] | | | - LABORATORY | | [...] uIU/mL | MICHELLE | | | | [facility] | | MEDICAL | | | [...] + | [facility] | [address] | [place] | [phone] | | [facility] | | [address] | | | - LABORATORY | | | | + + + + + | [facility] | [address] | [place], [place] | | | [facility] | | [address] | | | - LABORATORY | | | | + + + + + documented in this encounter Visit Diagnoses + + | Diagnosis | + + | Diplopia | + + documented in this encounter"
--- OUTSIDE RECORDS SUMMARY | ~2019-12-06 | XMS | Encounter Summary ---
Demographics + + + | Address | [address] | | | [place] [address] | + + + | Home Phone [...] +------+ + | Care Human Resources Operations Coordinator Name | Role | Phone [...] + + | 08/17/ | Office | [facility] | Michael Amanda, | Testosterone | | 2012 | Visit | [facility] [place] | DO [address] | deficiency (Primary | | | | [address] | [place] | Dx); Hypoglycemia; | | | | [place] | [address] | Herpes | | | | [address] | | | | | | [phone] | | | +--------+---------+ + + + [...] HTN (hypertension); Hypercholesterolemia; Bipolar 1 disorder; Insomnia; Rockboard Lather jennifer neck pain; Depression; Hyperlipidemia; BIPOLAR DISORDER [...] per orders. This note is dictated using Lang-8 voice recognition software. This note was dictated [...] | | | | | | [place] [address] | | | | | | [phone] | | | | | | | | +--------+---------+ + + + | 01/01/ | Office | Cardiology | Silvia, | | | 2019 | Visit | | PARISA Vernon [address] | | | | | | [place], | | | | | | [place] [address] | | | | | | [phone] | | | | | | | [...]
--- OUTSIDE RECORDS SUMMARY | ~2019-12-06 | XMS | Encounter Summary ---
Demographics + + + | Address | [address] | | | [place] [address] | + + + | Home Phone [...] + + | 06/03/ | Hospital | [facility] | | | | 2008 | Encounter | MED CTR EMERGENCY | | | | | | [place] [address] | | | | | | [place] | | | | | | [address] | | | | | | [phone] | | | +--------+ + + + [...] | | | | | [place] [address] | | | | | | [phone] | | | | | | | | +--------+---------+ + + + | 01/01/ | Office | Cardiology | Silvia, | | | 2020 | Visit | | PARISA Vernon [address] | | | | | | [place], | | | | | | [place] [address] | | | | | | [phone] | | | | | | | | +--------+---------+ + + + documented as of this encounter Visit Diagnoses Not on filedocumented in this encounter"
--- OUTSIDE RECORDS SUMMARY | ~2019-12-06 | XMS | Encounter Summary ---
Demographics + + + | Address | [address] | | | [place] [address] | + + + | Home Phone [...] Providers + +------+ + | Care Terminal Manager Name | Role | Phone | [...] + + | 04/12/ | Telephone | [facility] | Daljit Singletary, | Other (issues with | | 2017 | | CARDIOLOGY [address] | MD [address] | low blood pressure | | | | [place], | [place], | and dizziness) | | | | [place] [address] | [place] [address] | | | | | [phone] | [phone] | | | | | | | [...] | | | | | [place] [address] | | | | | | [phone] | | | | | | | | +--------+---------+ + + + | 01/01/ | Office | Cardiology | Silvia, | | | 2019 | Visit | | PARISA [place] [address] | | | | | | [place] | | | | | | [place] [address] | | | | | | [phone] | | | | | | | | +--------+---------+ + + + documented as of this encounter Visit Diagnoses Not on filedocumented in this encounter"
--- OUTSIDE RECORDS SUMMARY | ~2019-12-06 | XMS | Encounter Summary ---
Demographics + + + | Address | [address] | | | [place] [address] | + + + | Home Phone [...] Providers + +------+ + | Care Juvenile Probation Officer Name | Role | Phone | + +------+ + PCP | Unavailable | + +------+ + Encounter Details +--------+ + + + + | Date | Type | Department | Care Team | Description | +--------+ + + + + | 06/17/ | Hospital | [facility] | | | | 2008 | Encounter | MED CTR EMERGENCY | | | | | | [place] [address] | | | | | | [place] | | | | | | [address] | | | | | | [phone] | | | +--------+ + + + [...] | | | | | [place] [address] | | | | | | [phone] | | | | | | | | +--------+---------+ + + + | 01/01/ | Office | Cardiology | [place]via, | | | 2020 | Visit | | [place] [address] | | | | | | [place], | | | | | | [place] [address] | | | | | | [phone] | | | | | | | | +--------+---------+ + + + documented as of this encounter Visit Diagnoses Not on filedocumented in this encounter"
--- OUTSIDE RECORDS SUMMARY | ~2019-12-06 | XMS | Encounter Summary ---
Demographics + + + | Address | [address] [place] [address] [address] | | | [place] [address] | + + + | Home Phone [...] [place] | | | | | [address] | | + + + + + Care Team Providers + +------+ + | Care Wafer Fab Operator Name | Role | Phone | [...] | | | [address] | [place], [place] | | | | | Mailcode: [place] | [address] | | | | | for Health and | [phone] | | | | | [facility] [address] | | | | | | [place], [place] | | | | | | [address] | | | | | | [phone] | | | +--------+ + + + [...]
--- OUTSIDE RECORDS SUMMARY | ~2019-12-06 | XMS | Encounter Summary ---
Demographics + + + | Address | [address] | | | [place] [address] | + + + | Home Phone [...] + +------+ + | Care Customer Service Teller Name | Role | Phone | [...] | CARDIOLOGY [address] | [address] | (Primary Dx); | | | | [place], | [place], | Tachycardia; | | | | [place] [address] | [place] [address] | Coronary artery | | | | [phone] | [phone] | disease involving | | | | | | [place] coronary | | | | | | artery of [place] | | | | | | heart [...] | | | | | [place] [address] | | | | | | [phone] | | | | | | | | +--------+---------+ + + + | 01/01/ | Office | Cardiology | Silvia, | | | 2019 | Visit | | PARISA Vernon [address] | | | | | | [place] | | | | | | [place] [address] | | | | | | [phone] | | | | | | | [...] | | | | | | [place] coronary | | | | | | artery of [place] | | | | | | heart [...] MD | | | | | | ([id number]) on 06/29/2018 | | | | | [...] + | Coronary artery disease involving [place] coronary artery of [place] heart without | | angina pectoris | + + | Hypertension, unspecified type | + + documented in this encounter"
--- OUTSIDE RECORDS SUMMARY | ~2019-12-06 | XMS | Encounter Summary ---
Demographics + + + | Address | [address] | | | [place] [address] | + + + | Home Phone [...] Team Providers + +------+ + | Care Stable Cleaner Name | Role | Phone | [...] 2012 | | CARDIOLOGY [address] | HUMANITIES INSTRUCTOR [address] [place] | | | | | [place], | [place], [place] | | | | | [place] [address] | [address] | | | | | [phone] | | | +--------+ + + + [...] | | | | | [place] [address] | | | | | | [phone] | | | | | | | | +--------+---------+ + + + | 01/01/ | Office | Cardiology | Silvia, | | | 2019 | Visit | | PAR[place] [address] | | | | | | [place], | | | | | | [place] [address] | | | | | | [phone] | | | | | | | [...] | [address] | [place], [place] | | | [facility] | | [address] | | | - LABORATORY | | [...] | | | LAB | | | Chinese, | | | | | | External [...]
--- OUTSIDE RECORDS SUMMARY | ~2019-12-06 | XMS | Encounter Summary ---
Demographics + + + | Address | [address] | | | [place] [address] | + + + | Home Phone [...] Providers + +------+ + | Care Apparel Machinery Instructor Name | Role | Phone | [...] | Office | [facility] | Michael Amanda, | Hyperlipidemia; | | 2011 | Visit | [facility] [place] | DO [address] | Hypertension; | | | | [address] | [place] | Chronic pain | | | | [place] | [address] | syndrome; Neck pain, | | | | [address] | | chronic | | | | [phone] | | | +--------+---------+ + + + [...] slowly cutting back. Pt was going through [facility] for opiate medications prior to [...] | | | | | [facility] | | | | | | [place] [address] | | | | | | [phone] | | | | | | | | +--------+---------+ + + + | 01/01/ | Office | Cardiology | [place]via, | | | 2020 | Visit | | PARISA [place] [address] | | | | | | [place], | | | | | | [place] [address] | | | | | | [phone] | | | | | | | [...]
--- OUTSIDE RECORDS SUMMARY | ~2019-12-06 | XMS | Encounter Summary ---
Demographics + + + | Address | [address] | | | [place] [address] | + + + | Home Phone [...] Providers + +------+ + | Care Rope Twisting Machine Operator Name | Role | [...] | 10/09/ | Telephone | [facility] | Michael Amanda, | Other | | 2012 | | [facility] [place] | DO [address] | | | | | [address] | [place] | | | | | [place] | [address] | | | | | [address] | | | | | | [phone] | | | +--------+ + + + [...] | | | | | | [place] [address] | | | | | | [phone] | | | | | | | | +--------+---------+ + + + | 01/01/ | Office | Cardiology | [place], | | | 2019 | Visit | | [place] [address] | | | | | | [place], | | | | | | [place] [address] | | | | | | [phone] | | | | | | | | +--------+---------+ + + + documented as of this encounter Visit Diagnoses Not on filedocumented in this encounter"
--- OUTSIDE RECORDS SUMMARY | ~2019-12-06 | XMS | Encounter Summary ---
Demographics + + + | Address | [address] | | | [place] [address] | + + + | Home Phone [...] Team Providers + +------+ + | Care Composition Worker Name | Role | Phone | [...] Provider Unknown | | | | | [place], [place] | [phone] | | | | | [address] | | | | | | [phone] | | | +--------+ + + + [...] + + + +---------+ + + | [place]-3 Fatty | CAPS, one capsule by | [...] | | | | | [place] [address] | | | | | | [phone] | | | | | | | | +--------+---------+ + + + | 01/01/ | Office | Cardiology | [place]via, | | | 2019 | Visit | | PARISA [place] [address] | | | | | | [place] | | | | | | [place] [address] | | | | | | [phone] | | | | | | | [...]
--- OUTSIDE RECORDS SUMMARY | ~2019-12-06 | XMS | Encounter Summary ---
Demographics + + + | Address | [address] | | | [place] [address] | + + + | Home Phone [...] Providers + +------+ + | Care Adolescent Specialist Name | Role | Phone | [...] Provider Unknown | | | | | [place], [place] | [phone] | | | | | [address] | | | | | | [phone] | | | +--------+ + + + [...] + + + +---------+ + + | Eld[place]-3 Fatty | CAPS, one capsule by | [...] | | | | | | [place] [address] | | | | | | [phone] | | | | | | | | +--------+---------+ + + + | 01/01/ | Office | Cardiology | [place], | | | 2019 | Visit | | [place] [address] | | | | | | [place], | | | | | | [place] [address] | | | | | | [phone] | | | | | | | [...]
--- OUTSIDE RECORDS SUMMARY | ~2019-12-06 | XMS | Encounter Summary ---
Demographics + + + | Address | [address] | | | [place] [address] | + + + | Home Phone [...] Providers + +------+ + | Care Speed Runner Name | Role | Phone | [...] visit | CARDIOLOGY [address] | [address] [place] | reprogramming/check | | | | [place], | [place], | DO NOT DELETE | | | | [place] [address] | [place] [address] | (Primary Dx); | | | | [phone] | [phone] | Sinoatrial node | | | | [...] | | | | | [place] [address] | | | | | | [phone] | | | | | | | | +--------+---------+ + + + | 01/01/ | Office | Cardiology | [place], | | | 2019 | Visit | | [place] [address] | | | | | | [place] | | | | | | [place] [address] | | | | | | [phone] | | | | | | | [...]
--- OUTSIDE RECORDS SUMMARY | ~2019-12-06 | XMS | Encounter Summary ---
Demographics + + + | Address | [address] | | | [place] [address] | + + + | Home Phone [...] + +------+ + | Care Food And Drug Research Scientist Name | Role | Phone [...] | CARDIOLOGY [address] | [address] [place] | Interrogation | | | | [place], | [place], | (Primary Dx); | | | | [place] [address] | [place] [address] | Pacemaker; | | | | [phone] | [phone] | Sinoatrial node | | | | [...] | | | | | [place] [id number] | | | | | | [phone] | | | | | | | | +--------+---------+ + + + | 01/01/ | Office | Cardiology | Sil[place], | | | 2019 | Visit | | [facility] [place] [address] | | | | | | [place] | | | | | | [place] [address] | | | | | | [phone] | | | | | | | [...] remote PDF scanned into | | | Mendor for remote interrogation results. Data collected by [...]
--- OUTSIDE RECORDS SUMMARY | ~2019-12-06 | XMS | Encounter Summary ---
Demographics + + + | Address | [address] | | | [place] [address] | + + + | Home Phone [...] + +------+ + | Care Associate Professor Physician Name | Role | Phone | [...] 2012 | | Conversion Location | [address] | | | | | [phone] | [address] [place], | | | | | | [place] [address] | | | | | | [phone] | | | | | | | [...] | | | | | [place] [address] | | | | | | [phone] | | | | | | | | +--------+---------+ + + + | 01/01/ | Office | Cardiology | [place], | | | 2020 | Visit | | PARISA Vernon [address] | | | | | | [place], | | | | | | [place] [address] | | | | | | [phone] | | | | | | | | +--------+---------+ + + + documented as of this encounter Visit Diagnoses Not on filedocumented in this encounter"
--- OUTSIDE RECORDS SUMMARY | ~2019-12-06 | XMS | Encounter Summary ---
Demographics + + + | Address | [address] | | | [place] [address] | + + + | Home Phone [...] Team Providers + +------+ + | Care Ve Teacher Name | Role | Phone | [...] Eva ROUSE | | | | | [place], [place] | [address] | | | | | [address] | [place] [address] | | | | | [phone] | [phone] | | | | | | | [...] | | | | | [place] [address] | | | | | | [phone] | | | | | | | | +--------+---------+ + + + | 01/01/ | Office | Cardiology | [place], | | | 2019 | Visit | | PARISA Vernon [address] | | | | | | [place], | | | | | | [place] [address] | | | | | | [phone] | | | | | | | [...]
--- OUTSIDE RECORDS SUMMARY | ~2019-12-06 | XMS | Encounter Summary ---
Demographics + + + | Address | [address] | | | [place] [address] | + + + | Home Phone [...] Providers + +------+ + | Care Financial Analysis Consultant Name | Role | Phone | [...] [place] | | | | | | [address] | | | | | | [phone] | | | +--------+ + + + [...] | | | | | [place] [address] | | | | | | [phone] | | | | | | | | +--------+---------+ + + + | 01/01/ | Office | Cardiology | [place]via, | | | 2019 | Visit | | PARISA Vernon [address] | | | | | | [place], | | | | | | [place] [address] | | | | | | [phone] | | | | | | | | +--------+---------+ + + + documented as of this encounter Visit Diagnoses Not on filedocumented in this encounter"
--- OUTSIDE RECORDS SUMMARY | ~2019-12-06 | XMS | Encounter Summary ---
Demographics + + + | Address | [address] | | | [place] [address] | + + + | Home Phone [...] Team Providers + +------+ + | Care Piercer Operator Name | Role | Phone | [...] + + | 02/15/ | Office | [facility] | Jay Cohn PA | DIDIER (obstructive | | 2012 | Visit | SLEEP DISORDER [address] | [address] | sleep apnea) | | | | [address] | [place] | (Primary Dx) | | | | [place] [address] | [address] | | | | | [phone] | | | +--------+---------+ + + + [...] pillows obtained from: [facility] [place] pressure is: 13 cm CPAP download shows [...] to go to [facility] [place] to replace his equipment, but it had [...] to go to [facility] [place] to g et a new mask and filter. He is to work toward wearing his CPAP 100% of the time he is asle ep. I will follow up again in 1 month, sooner prn. Fifteen minutes were spent wioc-ao-ajyc, wi th the majority of time spent [...] | | | | | [place] [address] | | | | | | [phone] | | | | | | | | +--------+---------+ + + + | 01/01/ | Office | Cardiology | [place], | | | 2019 | Visit | | PARISA Vernon [address] | | | | | | [place], | | | | | | [place] [address] | | | | | | [phone] | | | | | | | | +--------+---------+ + + + documented as of this encounter Visit Diagnoses + + | Diagnosis | + + | DIDIER (obstructive sleep apnea) - Primary Obstructive sleep apnea (adult) (pediatric) | + + documented in this encounter"
--- OUTSIDE RECORDS SUMMARY | ~2019-12-06 | XMS | Encounter Summary ---
Demographics + + + | Address | [address] | | | [place] [address] | + + + | Home Phone [...] Providers + +------+ + | Care Senior Oracle Pl Sql Developer Name | Role | Phone | + +------+ + PCP | Unavailable | + +------+ + Encounter Details +--------+ + + + + | Date | Type | Department | Care Team | Description | +--------+ + + + + | 08/02/ | Hospital | [facility] | | | | 2001 | Encounter | MED CTR EMERGENCY | | | | | | [place] [address] | | | | | | [place] | | | | | | [address] | | | | | | [phone] | | | +--------+ + + + [...] | | | | | [place] [address] | | | | | | [phone] | | | | | | | | +--------+---------+ + + + | 01/01/ | Office | Cardiology | [place], | | | 2020 | Visit | | PARISA Vernon [address] | | | | | | [place], | | | | | | [place] [address] | | | | | | [phone] | | | | | | | | +--------+---------+ + + + documented as of this encounter Visit Diagnoses Not on filedocumented in this encounter"
--- OUTSIDE RECORDS SUMMARY | ~2019-12-06 | XMS | Encounter Summary ---
Demographics + + + | Address | [address] | | | [place] [address] | + + + | Home Phone [...] Team Providers + +------+ + | Care Vermin Exterminator Name | Role | Phone | + [...] + | 08/19/ | Telephone | [facility] | [place], | Other (patient | | 2016 | | CARDIOLOGY [address] | PAR[place] [address] | having issues with | | | | [place], | [place], | high blood pressure) | | | | [place] [address] | [place] [address] | | | | | [phone] | [phone] | | | | | | | [...] | | | | | [place] [address] | | | | | | [phone] | | | | | | | | +--------+---------+ + + + | 01/01/ | Office | Cardiology | [place], | | | 2020 | Visit | | PARISA Vernon [address] | | | | | | [place], | | | | | | [place] [address] | | | | | | [phone] | | | | | | | | +--------+---------+ + + + documented as of this encounter Visit Diagnoses Not on filedocumented in this encounter"
--- OUTSIDE RECORDS SUMMARY | ~2019-12-06 | XMS | Encounter Summary ---
Demographics + + + | Address | [address] | | | [place] [address] | + + + | Home Phone [...] Team Providers + +------+ + | Care Waterfront Director Name | Role | Phone | [...] 2019 | | GASTROENTEROLOGY | MD [address] | | | | | [address] | Jay Crane. ILA | | | | | [address] [place] | [place] [address] | | | | | [address] | | | | | | [phone] | | | +--------+ + + + [...] | | | | | [place] [address] | | | | | | [phone] | | | | | | | | +--------+---------+ + + + | 01/01/ | Office | Cardiology | [place], | | | 2019 | Visit | | PARISA Vernon [address] | | | | | | [place], | | | | | | [place] [address] | | | | | | [phone] | | | | | | | [...] | | | | | Emmanuel Daniel [facility] | | | | + [...]
--- OUTSIDE RECORDS SUMMARY | ~2019-12-06 | XMS | Encounter Summary ---
Demographics + + + | Address | [address] | | | [place] [address] | + + + | Home Phone [...] + +------+ + | Care Telegraphic Typewriter Operator Chief Name | Role | Phone [...] unspecified | [address] | [address] | | | | | type | [address] | [place], | | | | | Procedures | [place], | [place] | | | | | [place] | [place] [address] | [address] | | | | | Stress Test | Phone: | Phone: | | | | | (Vasodilator | [phone] | [phone] | | | | | ) CHG | Fax: | Fax: | | | | | MYOCARDIAL | [phone] | [phone] | | | | | SPECT | [...] unspecified | [address] | [address] | | | | | type | [address] | [place], | | | | | Procedures | [place], | [place] | | | | | [place] | [place] [address] | [address] | | | | | Stress Test | Phone: | Phone: | | | | | (Vasodilator | [phone] | [phone] | | | | | ) CHG | Fax: | Fax: | | | | | MYOCARDIAL | [phone] | [phone] | | | | | SPECT | [...] + | 07/21/ | Hospital | [facility] | Daljit Singletary, | Chest pain, | | 2018 | Encounter | MED CTR NUCLEAR | MD [address] | unspecified type | | | | MEDICINE [address] | [place], | | | | | [address], | [place] [address] | | | | | [place] [address] | [phone] | | | | | [phone] | | | | | | | Furniture Assembler And InstallerPavel | | +--------+ + + + + [...] + + + +---------+ + + | [place]-3 Fatty | CAPS, one capsule by [...] | | | | | [place] [address] | | | | | | [phone] | | | | | | | | +--------+---------+ + + + | 01/01/ | Office | Cardiology | [place], | | | 2019 | Visit | | PARISA [place] [address] | | | | | | [place] | | | | | | [place] [address] | | | | | | [phone] | | | | | | | [...]
--- OUTSIDE RECORDS SUMMARY | ~2019-12-06 | XMS | Encounter Summary ---
Demographics + + + | Address | [address] | | | [place] [address] | + + + | Home Phone [...] Providers + +------+ + | Care Marble Installation Helper Name | Role | Phone | + +------+ + PCP | Unavailable | + +------+ + Encounter Details +--------+ + + + + | Date | Type | Department | Care Team | Description | +--------+ + + + + | 06/13/ | [facility] | [facility] | Daljit Singletary, | | | 2008 | Encounter | MED CTR LABORATORY | [address] | | | | | [address] [place] | [place], | | | | | [place] | [place] [address] | | | | | [address] | [phone] | | | | | [phone] | | | +--------+ + + + [...] | | | | | [place], [place] [address] | | | | | | [phone] | | | | | | | | +--------+---------+ + + + | 01/01/ | Office | Cardiology | [place], | | | 2020 | Visit | | PARISA [place] [address] | | | | | | [place], | | | | | | [place] [address] | | | | | | [phone] | | | | | | | | +--------+---------+ + + + documented as of this encounter Visit Diagnoses Not on filedocumented in this encounter"
--- OUTSIDE RECORDS SUMMARY | ~2019-12-06 | XMS | Encounter Summary ---
Demographics + + + | Address | [address] | | | [place] [address] | + + + | Home Phone [...] Team Providers + +------+ + | Care Disk Sander Name | Role | Phone | [...] | (Fax) | | | | | [address] | | | | | | [phone] | | | +--------+ + + + [...] | | | | | [place] [address] | | | | | | [phone] | | | | | | | | +--------+---------+ + + + | 01/01/ | Office | Cardiology | [place], | | | 2020 | Visit | | PARISA Vernon [address] | | | | | | [place], | | | | | | [place] [address] | | | | | | [phone] | | | | | | | | +--------+---------+ + + + documented as of this encounter Visit Diagnoses Not on filedocumented in this encounter"
--- OUTSIDE RECORDS SUMMARY | ~2019-12-06 | XMS | Encounter Summary ---
Demographics + + + | Address | [address] | | | [place] [address] | + + + | Home Phone [...] Providers + +------+ + | Care Stock Preparation Operator Name | Role | Phone | [...] + + | 09/09/ | Office | [facility] | Michael Amanda, | Hyperlipidemia; | | 2011 | Visit | [facility] | DO [address] | Hypertension; | | | | [address] | [place] | Chronic pain | | | | [place] | [address] | syndrome; Neck pain, | | | | [address] | | chronic | | | | [phone] | | | +--------+---------+ + + + [...] damage history No ASHD (either angina; prior IN; prior CABG) No cardiac end organ damage [...] slowly cutting back. [facility] prior to [...] | | | | | [facility] | | | | | | [place] [address] | | | | | | [phone] | | | | | | | | +--------+---------+ + + + | 01/01/ | Office | Cardiology | [place], | | | 2020 | Visit | | PARISA Vernon [address] | | | | | | [place], | | | | | | [place] [address] | | | | | | [phone] | | | | | | | [...]
--- OUTSIDE RECORDS SUMMARY | ~2019-12-06 | XMS | Encounter Summary ---
Demographics + + + | Address | [address] | | | [place] [address] | + + + | Home Phone [...] Providers + +------+ + | Care Trauma Program Manager Name | Role | Phone | + +------+ + | Kirk French MD | PCP | | + +------+ + Encounter Details +--------+ + + + + | Date | Type | Department | Care Team | Description | +--------+ + + + + | 01/25/ | Hospital | [facility] | Daljit Singletary, | Stable angina | | 2019 | Encounter | MED CTR CV INTRA OP | MD [address] | pectoris (HCC) | | | | [address] | [place], | | | | | [place] | [place] [address] | | | | | [address] | [phone] | | | | | [phone] | | | +--------+ + + + [...] as a collagen plugis used on the laporte triny site to close the site, you [...] by your healthcare provider Date Last Reviewed: 09/22/201619992692-4887 [employer]. [address] [place] [address]. All righ ts reserved. This information is [...] + + + +---------+ + + | [place]-3 Fatty | CAPS, one capsule by | [...] | | | | | [place] [address] | | | | | | [phone] | | | | | | | | +--------+---------+ + + + | 01/01/ | Office | Cardiology | [place], | | | 2019 | Visit | | PARISA Vernon [address] | | | | | | [place], | | | | | | [place] [address] | | | | | | [phone] | | | | | | | [...] (1960) MEDICAL RECORD NUMBER: | | | [id number] OF PROCEDURE: 01/25/2019 STENOCAPTIONER: Daljit | | | MD Gemini PROCEDURES [...] Sanchez, (1960) | | OF PROCEDURE: 01/25/2019PRIMARY RAIL TRACK MAINTAINER: Daljit Singletary MD PROCEDURES | | PERFORMED:Coronary [...]
--- OUTSIDE RECORDS SUMMARY | ~2019-12-06 | XMS | Encounter Summary ---
Demographics + + + | Address | [address] | | | [place] [address] | + + + | Home Phone [...] Providers + +------+ + | Care Provider Service Representative Name | Role | Phone | + +------+ + PCP | Unavailable | + +------+ + Encounter Details +--------+ + + + + | Date | Type | Department | Care Team | Description | +--------+ + + + + | 01/31/ | Hospital | [facility] | | | | 2008 | Encounter | MED CTR EMERGENCY | | | | | | [place] [address] | | | | | | [place] | | | | | | [address] | | | | | | [phone] | | | +--------+ + + + [...] | | | | | [place] [address] | | | | | | [phone] | | | | | | | | +--------+---------+ + + + | 01/01/ | Office | Cardiology | [place], | | | 2020 | Visit | | PARISA [place] [address] | | | | | | [place], | | | | | | [place] [address] | | | | | | [phone] | | | | | | | | +--------+---------+ + + + documented as of this encounter Visit Diagnoses Not on filedocumented in this encounter"
--- OUTSIDE RECORDS SUMMARY | ~2019-12-06 | XMS | Encounter Summary ---
Demographics + + + | Address | [address] | | | [place] [address] | + + + | Home Phone [...] Providers + +------+ + | Care Project Management Analyst Name | Role | Phone [...] | SR | | | | | [phone] | | | +--------+ + + + [...] | | | | | [place] [address] | | | | | | [phone] | | | | | | | | +--------+---------+ + + + | 01/01/ | Office | Cardiology | [place], | | | 2019 | Visit | | PARISA [place] [address] | | | | | | [place], | | | | | | [place] [address] | | | | | | [phone] | | | | | | | [...]
--- OUTSIDE RECORDS SUMMARY | ~2019-12-06 | XMS | Encounter Summary ---
Demographics + + + | Address | [address] | | | [place] [address] | + + + | Home Phone [...] Providers + +------+ + | Care Lodging Facilities Manager Name | Role | Phone [...] [address] | | | | | [place], | [place], | | | | | [place] [address] | [place] [address] | | | | | [phone] | [phone] | | | | | | | [...] | | | | | [place] [address] | | | | | | [phone] | | | | | | | | +--------+---------+ + + + | 01/01/ | Office | Cardiology | [place], | | | 2019 | Visit | | PARISA [place] [address] | | | | | | [place] | | | | | | [place] [address] | | | | | | [phone] | | | | | | | | +--------+---------+ + + + documented as of this encounter Visit Diagnoses Not on filedocumented in this encounter"
--- OUTSIDE RECORDS SUMMARY | ~2019-12-06 | XMS | Encounter Summary ---
Demographics + + + | Address | [address] | | | [place] [address] | + + + | Home Phone [...] Providers + +------+ + | Care Mutuel Department Manager Name | Role | Phone [...] | | | pain | [address] | [address] | | | | | Procedures | [place] | [place], | | | | | [place] Nuclear | [place] | [place] | | | | | Stress Test | [address] | [address] | | | | | (Vasodilator | Phone: | Phone: | | | | | ) CHG | [phone] | [phone] | | | | | MYOCARDIAL | Fax: | Fax: | | | | | SPECT | [phone] | [phone] | | | | | MULTIPLE | | | | | | | STUDIES | | | +--------+--------+ + + + + Encounter Details +--------+ + + + + | Date | Type | Department | Care Team | Description | +--------+ + + + + | 12/06/ | Hospital | [facility] | Geri Angel, | Other chest pain | | 2013 | Encounter | MED CTR XRAY [address] | TITLE ONE KINDERGARTEN TEACHER [address] | | | | | [place] | [place] | | | | | [place] [address] | [address] | | | | | [phone] | | | +--------+ + + + [...] + + + +---------+ + + | [place]-3 Fatty | CAPS, one capsule by | [...] | | | | | [place] [address] | | | | | | [phone] | | | | | | | | +--------+---------+ + + + | 01/01/ | Office | Cardiology | [place], | | | 2019 | Visit | | PARISA [place] [address] | | | | | | [place] | | | | | | [place] [address] | | | | | | [phone] | | | | | | | [...] Performed At | + + + | [facility] Diagnostic Imaging | [place] | | Department [address] [facility] | [facility] | | [ rep ct [address]] [ rep [facility] | | st zip] Signed | - IMAGING | | | | | Patient Name: MOE GAY | | | Physician: JACKLYN : 1960 Age: 53 Sex: M Unit | | | #: [id number] Exam Date: 12/06/13 Location: | | | [facility] [place] #: [id number] Page: | | | %(RAD)RES..mtdd.print.filter("pg") of %(RAD) | | | RES..mtdd.print.filter("tpg") | | | | | | Accession Number: [id number] | | | PERSANTINE SESTAMIBI STRESS TEST, [...] Transcribed Date/Time: 12/07/2013 08:18 | | | Windsmith: <<Signature on File>> | | | | | | Daljit Singletary MD [facility] FAS12/07/13 1321 <Electronically signed | | | by Daljit Singletary MD, [facility], FACP, FASE, FASNC> Daljit | | | MD Gemini [facility] 12/07/13 0701 Windsmith: Jessica | | | Osnednvccbwuy57/16/14 0818 [place] | | + + + + + + + + | Performing | Address | City/State/Zipcode | Phone Number | | Organization | | | | + + + + + | [facility] | [address] | [place] | [phone] | | [facility] | | [address] | | | - IMAGING | | | | + + + + + documented in this encounter Visit Diagnoses + + | Diagnosis | + + | Other chest pain | + + documented in this encounter
--- OUTSIDE RECORDS SUMMARY | ~2019-12-06 | XMS | Encounter Summary ---
Demographics + + + | Address | [address] | | | [place] [address] | + + + | Home Phone [...] + +------+ + | Care Mid Level Provider Name | Role | Phone | + +------+ + PCP | Unavailable | + +------+ + Encounter Details +--------+ + + + + | Date | Type | Department | Care Team | Description | +--------+ + + + + | 05/13/ | [facility] | [facility] | Dom Graham, | | | 2010 | Encounter | MED CTR EMERGENCY | [address] | | | | | CENTER [address] | [place] | | | | | [place] | [address] | | | | | [address] | | | | | | [phone] | | | +--------+ + + + [...] | | | | | [place] [address] | | | | | | [phone] | | | | | | | | +--------+---------+ + + + | 01/01/ | Office | Cardiology | [place], | | | 2020 | Visit | | PARISA [place] [address] | | | | | | [place], | | | | | | [place] [address] | | | | | | [phone] | | | | | | | [...] | | | | | the [employer] | | | | | | Access Analyzer. | | | | + + + + + + + + | Specimen | + + | | + + + + + + + | Performing | Address | City/State/Zipcode | Phone Number | | Organization | | | | + + + + + | [facility] | [address] | [place] | [phone] | | [facility] | | [address] | | | - LABORATORY | | | | + + + + + | [facility] | [address] | [place] | | | [facility] | | [address] | | | - LABORATORY | | [...] | | | | | | [facility] | | | | | [...] | | | | gm/dL | . [place] | | | | | | [...] + | [facility] | [address] | [place] | [phone] | | [facility] | | [address] | | | - LABORATORY | | | | + + + + + | [facility] | [address] | [place] | | | [facility] | | [address] | | | - LABORATORY | | [...] + | [facility] | [address] | [place] | [phone] | | [facility] | | [address] | | | - LABORATORY | | | | + + + + + | [facility] | [address] | [place] | | | [facility] | | [address] | | | - LABORATORY | | [...] | | | | | the [employer] [place] | | | | | | Access Analyzer. | | | | + + + + + + + + | Specimen | + + | | + + + + + + + | Performing | Address | City/State/Zipcode | Phone Number | | Organization | | | | + + + + + | [facility] | [address] | [place], [place] | [phone] | | [facility] | | [address] | | | - LABORATORY | | | | + + + + + | [facility] | [address] | [place], [place] | | | [facility] | | [address] | | | - LABORATORY | | | | + + + + + XR Chest AP Portable (05/13/2011 3:01 PM PDT) + + | Specimen | + + | | + + + + + | Narrative | Performed At | + + + | [facility] Diagnostic Imaging Department | [facility] | | [address] [facility] | [facility] | | PORTABLE CHEST CLINICAL [...] Transcribed Date/Time: | | | 05/13/2011 17:06 Tax Processor: <Electronically Signed | | | by Jama Solis MD> 05/13/112038 | | + + + + + | Procedure Note | + + | Kevin, Rad Conversion - 12/29/2013 3:12 PM [facility] | | Diagnostic Imaging Department [address] [place] [address] | | PORTABLE CHEST CLINICAL HISTORY: TACHYCARDIA. [...] 16:57 | |Transcribed Date/Time: 05/13/2011 17:06 | |Tax Processor: | |<Electronically Signed by Jama Solis MD> [...]
--- OUTSIDE RECORDS SUMMARY | ~2019-12-06 | XMS | Encounter Summary ---
Demographics + + + | Address | [address] | | | [place] [address] | + + + | Home Phone [...] Providers + +------+ + | Care Provider Relations Consultant Name | Role | Phone [...] Office | [facility] | [place], | Ascending thoracic | | 2017 | Visit | CARDIOLOGY [address] | [place] [address] | aortic aneurysm | | | | [place], | [place], | (HCC) (Primary Dx); | | | | [place] [address] | [place] [address] | Coronary artery | | | | [phone] | [phone] | disease involving | | | | | | re[place]sparks coronary | | | | | | artery of [place]arks | | | | | | heart [...] of non-critical coronary artery d isease involving [place]sp[place] coronary artery of [place] heart without angina pectoris, essential h ypertension, [...] start Losartan 25 mg once every day, [facility] blood pressure log, and follow up [...] Preventative health care Coronary artery disease involving [place]sp[place] coronary artery of [place] heart without angina pectoris Cannabis abuse, daily [...] 3RD DOSE, CALL 911 100 tablet 3 [place]-3 Fatty Acids (SALMON OIL-1000 PO) CAPS, one [...] was found Confirmed by SYDNI SINGLETARY MD ([id number]) on 06/23/2016 2:08:15 PM LAB RESULTS reviewed [...] PLTEX 129* 05/12/2016 I reviewed records from [facility] for office visit on 09/01/2016 which is [...] He is in class I of the [place] Heart Association functional class. On physical examination there are no signs of fl uid overload. 2. Non-critical Coronary artery disease involving re[place]sparks coronary a rtery of [place] heart without angina pectoris: A. Normal exercise [...] ventricular arrhythmia performed by Dr. Gambino at [facility] on 01/30/2013. Patient had [...] is a normal stable device function. Estimated [employer] ng battery longevity is 5 years.. 5. [...] this chart may have been created with [email or web address] voice recognition software. Occasi onal wrong-word or [...] | | | | | [place] [address] | | | | | | [phone] | | | | | | | | +--------+---------+ + + + | 01/01/ | Office | Cardiology | Silvia, | | | 2020 | Visit | | PAR[place] [address] | | | | | | [place], | | | | | | [place] [address] | | | | | | [phone] | | | | | | | | +--------+---------+ + + + documented as of this encounter Visit Diagnoses + + | Diagnosis | + + | Ascending thoracic aortic aneurysm (HCC) - Primary Thoracic aneurysm without mention | | of rupture | + + | Coronary artery disease involving re[place]-sparks coronary artery of re[place]-sparks heart without | | angina pectoris | + + | Essential hypertension with goal blood pressure less than 130/80 | + + | Hyperlipidemia, mixed Mixed hyperlipidemia | + + documented in this encounter
--- OUTSIDE RECORDS SUMMARY | ~2019-12-06 | XMS | Encounter Summary ---
Demographics + + + | Address | [address] | | | [place] [address] | + + + | Home Phone [...] Providers + +------+ + | Care Computer Language Coder Name | Role | Phone | [...] 2019 | | GASTROENTEROLOGY | [address], [place] | | | | | [address] [place] | [address] [place], [place] | | | | | [address] [place], [place] | [address] | | | | | [address] | | | | | | [phone] | | | +--------+ + + + [...] | | | | | [place] [address] | | | | | | [phone] | | | | | | | | +--------+---------+ + + + | 01/01/ | Office | Cardiology | Silvia, | | | 2019 | Visit | | PAR[place] [address] | | | | | | [place] | | | | | | [place] [address] | | | | | | [phone] | | | | | | | | +--------+---------+ + + + documented as of this encounter Visit Diagnoses Not on filedocumented in this encounter"
--- OUTSIDE RECORDS SUMMARY | ~2019-12-06 | XMS | Encounter Summary ---
Demographics + + + | Address | [address] | | | [place] [address] | + + + | Home Phone [...] Providers + +------+ + | Care Show Operations Supervisor Name | Role | Phone [...] | [facility] [address] | [address] | remote) | | | | [place], | [place], | | | | | [place] [address] | [place] [address] | | | | | [phone] | [phone] | | | | | | | [...] | | | | | [place] [address] | | | | | | [phone] | | | | | | | | +--------+---------+ + + + | 01/01/ | Office | Cardiology | Silvia, | | | 2019 | Visit | | PAR[place] [address] | | | | | | [place] | | | | | | [place] [address] | | | | | | [phone] | | | | | | | | +--------+---------+ + + + documented as of this encounter Visit Diagnoses Not on filedocumented in this encounter"
--- OUTSIDE RECORDS SUMMARY | ~2019-12-06 | XMS | Encounter Summary ---
Demographics + + + | Address | [address] | | | [place] [address] | + + + | Home Phone [...] + +------+ + | Care Tongue And Quarter Stitcher Name | Role | Phone | [...] 2019 | | GASTROENTEROLOGY | MD [address] | | | | | [address] | [place]. [place] | | | | | [address] [place] | [place] [address] | | | | | [address] | | | | | | [phone] | | | +--------+ + + + [...] | | | | | | [place] [address] | | | | | | [phone] | | | | | | | | +--------+---------+ + + + | 01/01/ | Office | Cardiology | Silvia, | | | 2019 | Visit | | [place] [address] | | | | | | [place], | | | | | | [place] [address] | | | | | | [phone] | | | | | | | | +--------+---------+ + + + documented as of this encounter Visit Diagnoses Not on filedocumented in this encounter"
--- OUTSIDE RECORDS SUMMARY | ~2019-12-06 | XMS | Encounter Summary ---
Demographics + + + | Address | [id number] [place] [address] [address] | | | [place] [address] | + + + | Home Phone [...] [place] | | | | | [address] | | + + + + + Care Team Providers + +------+ + | Care Courier Driver Name | Role | Phone | [...] | | [facility] | | | | [place], [place] | | | | | | [address] | | | | | | [phone] | | | +--------+------+ + + + [...] | | [place] [address] | REGIONAL | | [place] [address] | LABORATORY | + + + + + + + + | Performing | Address | City/State/Zipcode | Phone Number | | Organization | | | | + + + + + | [facility] | [address] | [place] [address] | | | LABORATORY | | | [...] Way Lab) | | | [facility] [address] | | | [place] [address] | | + + + + + + + + | Performing | Address | City/State/Zipcode | Phone Number | | Organization | | | | + + + + + | [facility] | [address] | [place] [address] | | | LABORATORY | | | [...] | | | DEPARTMENT | | | [facility] | | | OF | | | [...] DEPARTMENT OF | [address] | [place] [address] | | | PATHOLOGY | [address] | | | + + + + + documented in this encounter Visit Diagnoses + + | Diagnosis | + + | Chest pain Chest pain, unspecified | + + | Bradycardia Other specified cardiac dysrhythmias | + + documented in this encounter"
--- OUTSIDE RECORDS SUMMARY | ~2019-12-06 | XMS | Encounter Summary ---
Demographics + + + | Address | [address] | | | [place] [address] | + + + | Home Phone [...] Providers + +------+ + | Care Employee Relations Consultant Name | Role | Phone [...] Results | | 2013 | | [facility] [place] | DO [address] | | | | | [address] | [place] | | | | | [place] | [address] | | | | | [address] | | | | | | [phone] | | | +--------+ + + + [...] | | | | | [place] [address] | | | | | | [phone] | | | | | | | | +--------+---------+ + + + | 01/01/ | Office | Cardiology | Silvia, | | | 2019 | Visit | | [place] [address] | | | | | | [place], | | | | | | [place] [address] | | | | | | [phone] | | | | | | | | +--------+---------+ + + + documented as of this encounter Visit Diagnoses Not on filedocumented in this encounter"
--- OUTSIDE RECORDS SUMMARY | ~2019-12-06 | XMS | Encounter Summary ---
Demographics + + + | Address | [address] | | | [place] [address] | + + + | Home Phone [...] + +------+ + | Care Stretching Machine Operator Name | Role | Phone [...] + | 12/23/ | Telephone | [facility] | Daljit Singletary, | Other (question | | 2015 | | CARDIOLOGY [address] | [address] | about diet | | | | [place], | [place], | medication) | | | | [place] [address] | [place] [address] | | | | | [phone] | [phone] | | | | | | | [...] | | | | | [place] [address] | | | | | | [phone] | | | | | | | | +--------+---------+ + + + | 01/01/ | Office | Cardiology | [place], | | | 2019 | Visit | | [place] [address] | | | | | | [place] | | | | | | [place] [address] | | | | | | [phone] | | | | | | | | +--------+---------+ + + + documented as of this encounter Visit Diagnoses Not on filedocumented in this encounter"
--- OUTSIDE RECORDS SUMMARY | ~2019-12-06 | XMS | Encounter Summary ---
Demographics + + + | Address | [address] | | | [place] [address] | + + + | Home Phone [...] Providers + +------+ + | Care Certified Alcohol Counselor Name | Role | Phone | + +------+ + PCP | Unavailable | + +------+ + Encounter Details +--------+ + + + + | Date | Type | Department | Care Team | Description | +--------+ + + + + | 02/21/ | [facility] | [facility] | Geri Angel, | | | 2011 | Encounter | MED CTR XRAY [address] | SEPARATIONS SCIENTIST [address] | | | | | [place] | [address] [place] | | | | | [place] [address] | [address] | | | | | [phone] | | | +--------+ + + + [...] | | | | | [place] [address] | | | | | | [phone] | | | | | | | | +--------+---------+ + + + | 01/01/ | Office | Cardiology | Silvia, | | | 2020 | Visit | | [place] [address] | | | | | | [place], | | | | | | [place] [address] | | | | | | [phone] | | | | | | | | +--------+---------+ + + + documented as of this encounter Visit Diagnoses Not on filedocumented in this encounter"
--- OUTSIDE RECORDS SUMMARY | ~2019-12-06 | XMS | Encounter Summary ---
Demographics + + + | Address | [address] | | | [place] [address] | + + + | Home Phone [...] Providers + +------+ + | Care Ruby On Rails Web Developer Name | Role | Phone [...] [address] | | | | | [place], | [place], | | | | | [place] [address] | [place] [address] | | | | | [phone] | [phone] | | | | | | | [...] | | | | | [place] [address] | | | | | | [phone] | | | | | | | | +--------+---------+ + + + | 01/01/ | Office | Cardiology | Silvia, | | | 2019 | Visit | | [place] [address] | | | | | | [place], | | | | | | [place] [address] | | | | | | [phone] | | | | | | | [...]
--- OUTSIDE RECORDS SUMMARY | ~2019-12-06 | XMS | Encounter Summary ---
Demographics + + + | Address | [address] | | | [place] [address] | + + + | Home Phone [...] Providers + +------+ + | Care Home Demonstration Agent Name | Role | Phone | [...] | 10/09/ | Telephone | [facility] | Michael Amanda, | Other | | 2012 | | [facility] [place] | DO [address] | | | | | [address] | [place] | | | | | [place] | [address] | | | | | [address] | | | | | | [phone] | | | +--------+ + + + [...] | | | | | [place] [address] | | | | | | [phone] | | | | | | | | +--------+---------+ + + + | 01/01/ | Office | Cardiology | [place], | | | 2019 | Visit | | [place] [address] | | | | | | [place], | | | | | | [place] [address] | | | | | | [phone] | | | | | | | | +--------+---------+ + + + documented as of this encounter Visit Diagnoses Not on filedocumented in this encounter"
--- OUTSIDE RECORDS SUMMARY | ~2019-12-06 | XMS | Encounter Summary ---
Demographics + + + | Address | [address] | | | [place] [address] | + + + | Home Phone [...] Team Providers + +------+ + | Care Surplus Property Disposal Agent Name | Role | Phone | + +------+ + PCP | Unavailable | + +------+ + Encounter Details +--------+ + + + + | Date | Type | Department | Care Team | Description | +--------+ + + + + | 12/01/ | Hospital | [facility] | | | | 1997 | Encounter | MED CTR EMERGENCY | | | | | | CENTER [address] | | | | | | [place] | | | | | | [address] | | | | | | [phone] | | | +--------+ + + + [...] | | | | | [place] [address] | | | | | | [phone] | | | | | | | | +--------+---------+ + + + | 01/01/ | Office | Cardiology | [place], | | | 2020 | Visit | | [place] [address] | | | | | | [place], | | | | | | [place] [address] | | | | | | [phone] | | | | | | | | +--------+---------+ + + + documented as of this encounter Visit Diagnoses Not on filedocumented in this encounter"
--- OUTSIDE RECORDS SUMMARY | ~2019-12-06 | XMS | Encounter Summary ---
Demographics + + + | Address | [address] | | | [place] [address] | + + + | Home Phone [...] Amanda, | | | 2013 | | [facility] | DO [address] | | | | | [address] | [place] | | | | | [place] | [address] | | | | | [address] | | | | | | [phone] | | | +--------+ + + + [...] | | | | | [place] [address] | | | | | | [phone] | | | | | | | | +--------+---------+ + + + | 01/01/ | Office | Cardiology | [place]via, | | | 2020 | Visit | | [place] [address] | | | | | | [place], | | | | | | [place] [address] | | | | | | [phone] | | | | | | | | +--------+---------+ + + + documented as of this encounter Visit Diagnoses Not on filedocumented in this encounter"
--- OUTSIDE RECORDS SUMMARY | ~2019-12-06 | XMS | Encounter Summary ---
Demographics + + + | Address | [address] | | | [place] [address] | + + + | Home Phone [...] + +------+ + | Care Roof Truss Machine Tender Name | Role | Phone [...] [place] | | | | | [address] | [address] | | | | | [phone] | | | +--------+ + + + [...] | | | | | [place] [address] | | | | | | [phone] | | | | | | | | +--------+---------+ + + + | 01/01/ | Office | Cardiology | Silvia, | | | 2019 | Visit | | PAR[place] [address] | | | | | | [place] | | | | | | [place] [address] | | | | | | [phone] | | | | | | | | +--------+---------+ + + + documented as of this encounter Visit Diagnoses Not on filedocumented in this encounter"
--- OUTSIDE RECORDS SUMMARY | ~2019-12-06 | XMS | Encounter Summary ---
Demographics + + + | Address | [address] | | | [place] [address] | + + + | Home Phone [...] Providers + +------+ + | Care Director For [employer] Name | Role | Phone | [...] [place] | | | | | | [address] | | | | | | [phone] | | | +--------+ + + + [...] + + + +---------+ + + | [place]-3 Fatty | CAPS, one capsule by [...] [address] | | | | | | [phone] | | | | | | | | +--------+---------+ + + + | 01/01/ | Office | Cardiology | Silvia, | | | 2019 | Visit | | [place] [address] | | | | | | [place] | | | | | | [place] [address] | | | | | | [phone] | | | | | | | | +--------+---------+ + + + documented as of this encounter Visit Diagnoses + + | Diagnosis | + + | Patient left after triage - Primary | + + documented in this encounter
--- OUTSIDE RECORDS SUMMARY | ~2019-12-06 | XMS | Encounter Summary ---
Demographics + + + | Address | [address] | | | [place] [address] | + + + | Home Phone [...] Providers + +------+ + | Care Formula Room Worker Name | Role | Phone | [...] W | reprogramming/check | | | | [place], | [address] [place] | DO [place] DELETE | | | | [place] [address] | [place] [address] | (Primary Dx); | | | | [phone] | [phone] | Pacemaker - | | | | [...] | | | | | [place] [address] | | | | | | [phone] | | | | | | | | +--------+---------+ + + + | 01/01/ | Office | Cardiology | [place]via, | | | 2019 | Visit | | PAR[place] [address] | | | | | | [place] | | | | | | [place] [address] | | | | | | [phone] | | | | | | | [...] At | + + + | Margarito Aivna | [facility] | | MD Heide 08/24/2018 [...]
--- OUTSIDE RECORDS SUMMARY | ~2019-12-06 | XMS | Encounter Summary ---
Demographics + + + | Address | [address] | | | [place] [address] | + + + | Home Phone [...] Providers + +------+ + | Care Assembler Motor Vehicle Name | Role | Phone | + [...] + | 06/20/ | Telephone | [facility] | Daljit Singletary, | Chest Pain | | 2018 | | CARDIOLOGY [address] | MD [address] [place] | | | | | [place], | [place], | | | | | [place] [address] | [place] [address] | | | | | [phone] | [phone] | | | | | | | [...] | | | | | | [place] [address] | | | | | | [phone] | | | | | | | | +--------+---------+ + + + | 01/01/ | Office | Cardiology | Silvia, | | | 2019 | Visit | | PARISA [place] [address] | | | | | | [place], | | | | | | [place] [address] | | | | | | [phone] | | | | | | | | +--------+---------+ + + + documented as of this encounter Visit Diagnoses Not on filedocumented in this encounter"
--- OUTSIDE RECORDS SUMMARY | ~2019-12-06 | XMS | Encounter Summary ---
Demographics + + + | Address | [address] | | | [place] [address] | + + + | Home Phone [...] Providers + +------+ + | Care Pharmaceutical Detailer Name | Role | Phone | [...] + + | 03/07/ | Office | [facility] | [place], | SINUS BRADYCARDIA | | 2013 | Visit | CARDIOLOGY [address] | [place] [address] | (Primary Dx); | | | | [place], | [place], | Syncope; Symptomatic | | | | [place] [address] | [place] [address] | PVCs; Pacemaker - | | | | [phone] | [phone] | Medtronic - [id number] | | | [...] Sanchez Date: March 07, 2014 : 1960 Service Mechanic: Kailey Pruitt RN Device Button Tacker:Medtronic Sense (mV) Impedance (?) Capture (V) Capture (ms) A Lead >5.60 402 1.500 0.09 RV Lead >31.36 522 2.00 0.09 LV Lead Battery Impedance (?): 528 Battery Voltage (V): 2.79 NC Interval (ms): 147 AR Interval (ms): 217 VA Conduction: Mode Switch Events: 0 % of time: 0 -FOOD STAND MANAGER: <0.1% AP-FOOD STAND MANAGER: 0.1% -VS: 23.8% AP-VS: 76.1% FOOD STAND MANAGER: Magnetic Rate: 85 LINDA: 65 LEAH: [...] Pruitt RN 03/07/2014 12:00 Janeen Mccollum AR PRODUCTION GRIP - 03/07/2014 11:07 AM PDT PATIENT NAME: [...] headaches. He paulino d been seen at [facility] a couple times with [...] needed for Chest pain. 25 tablet 12 [place]-3 Fatty Acids (SALMON OIL-1000 PO) CAPS, one capsule by mouth daily twice daily ONE TOUCH DELICA LANCETS [facility] Check glucose as needed for hypoglycemia 100 [...] Sanchez Date: March 07, 2014 : 1960 Service Mechanic: Kailey Pruitt RN Device Button Tacker:InterpretOmics Sense (mV) Impedance (?) Capture (V) Capture (ms) A Lead >5.60 402 1.500 0.09 RV Lead >31.36 522 2.00 0.09 LV Lead Battery Impedance (?): 528 Battery Voltage (V): 2.79 NC Interval (ms): 147 AR Interval (ms): 217 VA Conduction: Mode Switch Events: 0 % of time: 0 -FOOD STAND MANAGER: <0.1% AP-FOOD STAND MANAGER: 0.1% -VS: 23.8% AP-VS: 76.1% FOOD STAND MANAGER: Magnetic Rate: 85 LINDA: 65 LEAH: [...] be ruled out. D. [facility] 12/25/13, shows noncritical coronary artery disease, [...] pain. He is in class II of [place] [employer] Association functional class . There are [...] to go back in 3 days to [place] for an attempt of ablation under general [...] palpitations.. He is in class II of [place] Heart Association functional class. There are no [...] bring in his blood pressure logs from [facility] e 5. Lightheadedness and dizziness/ presyncope: A. [...] made to ensure accuracy; however, inadvertent computerized paraffin machine operator errors may be pre sent. [...] | | | | | [place] [address] | | | | | | [phone] | | | | | | | | +--------+---------+ + + + | 01/01/ | Office | Cardiology | Silvia, | | | 2019 | Visit | | PARISA [place] [address] | | | | | | [place] | | | | | | [place] [address] | | | | | | [phone] | | | | | | | [...] 07, 2014 : | | | 1960 Service Mechanic: Kailey Pruitt RN Device | | | Button Tacker:InterpretOmics Sense (mV) Impedance (?) Capture (V) | | | Capture (ms) A Lead >5.60 402 1.500 0.09 RV Lead >31.36 522 2.00 | | | 0.09 LV Lead Battery Impedance (?): 528 Battery Voltage (V): | | | 2.79 NC Interval (ms): 147 AR Interval (ms): 217 VA Conduction: | | | Mode Switch Events: 0 % of time: 0 -FOOD STAND MANAGER: <0.1% AP-FOOD STAND MANAGER: 0.1% -VS: | | | 23.8% AP-VS: 76.1% FOOD STAND MANAGER: Magnetic Rate: 85 LINDA: 65 LEAH: [...] | | Date: March 07, 2014DOB: 1960 Service Mechanic: Kailey Pruitt RN Device | | Button Tacker:Amedrixtronic Sense (mV) Impedance (?) Capture (V) Capture (ms) A Lead >5.60 | | 402 1.500 0.09 RV Lead >31.36 522 2.00 0.09 LV Lead Battery Impedance (?): 528 | | Battery Voltage (V): 2.79 NC Interval (ms): 147 AR Interval (ms): 217 VA Conduction: | | Mode Switch Events: 0 % of time: 0 -FOOD STAND MANAGER: <0.1% AP-FOOD STAND MANAGER: 0.1% -VS: 23.8% AP-VS: 76.1% | | FOOD STAND MANAGER: Magnetic Rate: 85 LINDA: 65 LEAH: [...]
--- OUTSIDE RECORDS SUMMARY | ~2019-12-06 | XMS | Encounter Summary ---
Demographics + + + | Address | [address] | | | [place] [address] | + + + | Home Phone [...] + + + + | 02/21/ | [facility] | [facility] | Cristy Braun | | | 2008 | Encounter | MED CTR EMERGENCY | MD [address] | | | | | [place] [address] | [facility], | | | | | [place] | [place] [address] | | | | | [address] | [phone] | | | | | [phone] | | | +--------+ + + + [...] | | | | | [place] [address] | | | | | | [phone] | | | | | | | | +--------+---------+ + + + | 01/01/ | Office | Cardiology | Silvia, | | | 2020 | Visit | | PARISA [place] [address] | | | | | | [place], | | | | | | [place] [address] | | | | | | [phone] | | | | | | | | +--------+---------+ + + + documented as of this encounter Visit Diagnoses Not on filedocumented in this encounter"
--- OUTSIDE RECORDS SUMMARY | ~2019-12-06 | XMS | Encounter Summary ---
Demographics + + + | Address | [address] | | | [place] [address] | + + + | Home Phone [...] Providers + +------+ + | Care Automobile Taillight Assembler Name | Role | Phone | [...] | | | | [place] | | [address] Phone: | | | | | CYSTO/URETER | | [phone] | | | | | O | | Fax: | | | | | W/LITHOTRIPS | | [phone] | | | | | Y &INDWELL [...] + + | 04/13/ | Hospital | [facility] | Matthew Uriarte | Preoperative | | 2019 | Encounter | MED CTR OR INTRA OP | Dahl, MD [address] | clearance (Primary | | | | [address] | [address] [place] | Dx); Left ureteral | | | | [place] | [address] | calculus; Kidney | | | | [address] | | stones | | | | [phone] | | | +--------+ + + + [...] Care Everywhere.Kidney Stones, Treating: Ureteroscopic Stone Removal (Anguillan)Stents, Ureteral (Anguillan)documented in this encounter Medications at Time of [...] + + + +---------+ + + | [place]-3 Fatty | CAPS, one capsule by | [...] | | | | | | | gambell coronary | | | | | | | artery of gambell | | | | | | | [...] | | | | | [place] [address] | | | | | | [phone] | | | | | | | | +--------+---------+ + + + | 01/01/ | Office | Cardiology | Silvia, | | | 2019 | Visit | | PARISA Vernon [address] | | | | | | [place] | | | | | | [place] [address] | | | | | | [phone] | | | | | | | [...] [facility] | | | | | | at:[phone]. | | | | + + + [...] [address], | REFERENCE LAB | | [place], [place] [id number] Drawbridge Tender: Yeny Rios MD, Phone: | ARSH CASTANON | | [phone] | | + + + + + + + + | Performing | Address | City/State/Zipcode | Phone Number | | Organization | | | | + + + + + | REFERENCE LAB | [address] | [place] [address] | [phone] | | [facility] | [address] [...] [address] | [place] | [phone] | | [facility] | | [address] | | | - LABORATORY | | [...] ST. | [address] | [place], [place] | [phone] | | [facility] | | [address] | | | - LABORATORY | | [...] [address] | [place] | [phone] | | [facility] | | [address] | | | - LABORATORY | | [...] [address] | [place] | [phone] | | [facility] | | [address] | | | - LABORATORY | | [...] | 0.92 | 0.70 - 1.30 | [facility] | | | | | mg/dL | [facility] | | | | | | MEDICAL | | | | | | CENTER - | | | | | | LABORATORY | | + + + + + + | eGFR if not | >60Comment: GLOMERULAR | >=60 | [facility] | | | | FILTRATION | mL/min/1.73m2 | [facility] | | | [place] | RATE,ESTIMATED | | MEDICAL | | | | mL/min/1.11c4Cuvl than | | CENTER - | | [...] [address] | [place] | [phone] | | [facility] | | [address] | | | - LABORATORY | | [...] | | | | | | | npboqe-[id number]-odaow use of at least | | | [...]
--- OUTSIDE RECORDS SUMMARY | ~2019-12-06 | XMS | Encounter Summary ---
Demographics + + + | Address | [address] | | | [place] [address] | + + + | Home Phone [...] Providers + +------+ + | Care University Dean Name | Role | Phone | [...] + | 01/24/ | Telephone | [facility] | Daljit Singletary, | Other | | 2019 | | CARDIOLOGY [address] | MD [address] [place] | | | | | [place], | [place], | | | | | [place] [address] | [place] [address] | | | | | [phone] | [phone] | | | | | | | [...] | | | | | [place] [address] | | | | | | [phone] | | | | | | | | +--------+---------+ + + + | 01/01/ | Office | Cardiology | Silvia, | | | 2019 | Visit | | PARISA Vernon [address] | | | | | | [place] | | | | | | [place] [address] | | | | | | [phone] | | | | | | | | +--------+---------+ + + + documented as of this encounter Visit Diagnoses Not on filedocumented in this encounter"
--- OUTSIDE RECORDS SUMMARY | ~2019-12-06 | XMS | Encounter Summary ---
Demographics + + + | Address | [address] | | | [place] [address] | + + + | Home Phone [...] Providers + +------+ + | Care Painter Rough Name | Role | Phone | + +------+ + PCP | Unavailable | + +------+ + Encounter Details +--------+ + + + + | Date | Type | Department | Care Team | Description | +--------+ + + + + | 09/12/ | Hospital | [facility] | | | | 1993 | Encounter | MED CTR EMERGENCY | | | | | | CENTER [address] | | | | | | [place] | | | | | | [address] | | | | | | [phone] | | | +--------+ + + + [...] | | | | | [place] [address] | | | | | | [phone] | | | | | | | | +--------+---------+ + + + | 01/01/ | Office | Cardiology | Silvia, | | | 2020 | Visit | | PARISA Vernon [address] | | | | | | [place], | | | | | | [place] [address] | | | | | | [phone] | | | | | | | | +--------+---------+ + + + documented as of this encounter Visit Diagnoses Not on filedocumented in this encounter"
--- OUTSIDE RECORDS SUMMARY | ~2019-12-06 | XMS | Encounter Summary ---
Demographics + + + | Address | [address] | | | [place] [address] | + + + | Home Phone [...] Team Providers + +------+ + | Care Bath Mixer Name | Role | Phone | [...] + + | 06/26/ | Office | [facility] | Geri Angel, | Coronary artery | | 2015 | Visit | CARDIOLOGY [address] | PROPERTY AND SUPPLY OFFICER [address] | disease involving | | | | [place], | [facility] [place] [facility], [place] | [place] coronary | | | | [place] [address] | [address] | artery without | | | | [phone] | | angina pectoris | | | [...] not occur with exertion. He went to [facility] at the end of for his [...] it. He is planning to travel to [facility] in the ve ry near future for up to a month due to his hyymmi-xj-jgg having a significant stroke there MEDICAL, SURGICAL, [...] Preventative health care Coronary artery disease involving [place] coronary artery without angina pectoris Cannabis abuse, [...] by mouth Daily. 30 tabl et 6 [facility] Products (OSTEO BI-FLEX/5-LOXIN ADVANCED PO) Take [...] 3rd dose, call 911 25 tablet 11 [place]-3 Fatty Acids (SALMON OIL-1000 PO) CAPS, one capsule by mouth daily twice daily ONE TOUCH DELICA LANCETS [place] Check glucose as needed for hypoglycemia 100 [...] Daily. 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 Leads: Right atrium and right ventricle (dual [...] to go back in 3 days to [place] for an attempt of ablation under general [...] I-II of [place] [employer] functional class. T here are [...] this chart may have been created with Spotistic voice recognition software. 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 Leads: Right atrium and right | | [...] + + | Coronary artery disease involving [place] coronary artery without angina pectoris - | | Primary | + + | SINUS BRADYCARDIA Sinoatrial node dysfunction | + + | Essential hypertension Unspecified essential hypertension | + + | Hyperlipidemia Other and unspecified hyperlipidemia | + + | Symptomatic PVCs Other premature beats | + + documented in this encounter
--- OUTSIDE RECORDS SUMMARY | ~2019-12-06 | XMS | Encounter Summary ---
Demographics + + + | Address | [address] | | | [place] [address] | + + + | Home Phone [...] Providers + +------+ + | Care Drawing Supervisor Name | Role | Phone [...] | | | | [place] | [address] | | | | | [address] | | | | | | [phone] | | | +--------+ + + + [...] | | | | | [place] [address] | | | | | | [phone] | | | | | | | | +--------+---------+ + + + | 01/01/ | Office | Cardiology | Silvia, | | | 2019 | Visit | | PARISA Vernon [address] | | | | | | [place], | | | | | | [place] [address] | | | | | | [phone] | | | | | | | | +--------+---------+ + + + documented as of this encounter Visit Diagnoses Not on filedocumented in this encounter"
--- OUTSIDE RECORDS SUMMARY | ~2019-12-06 | XMS | Encounter Summary ---
Demographics + + + | Address | [address] | | | [place] [address] | + + + | Home Phone [...] Providers + +------+ + | Care Skein Yard Drier Name | Role | Phone | [...] | | PVCs | PARISA Vernon | [address] | | | | | Procedures | [address] | [address] | | | | | [place] OFFICE | [place] | [place] | | | | | CONSULTATION | [place], | [address] Phone: | | | | | NEW/ESTAB | [place] | [phone] | | | | | PATIENT 40 | [address] | Fax: | | | | | MIN | Phone: | [phone] | | | | | | [phone] | | | | | | | Fax: | | | | | | | [phone] | | +--------+--------+ + + + + Encounter Details +--------+---------+ + + + | Date | Type | Department | Care Team | Description | +--------+---------+ + + + | 11/30/ | Office | [facility] | Jay Gambino MD | Symptomatic PVCs | | 2015 | Visit | [facility] | [address] | (Primary Dx) | | | | HI[address] | [address] [place], | | | | | [facility] [address] [place] | [place] [address] | | | | | [address] | [phone] | | | | | [phone] | | | +--------+---------+ + + + [...] Gambino MD - 11/30/2014 5:37 PM PST [facility] [address] [place] [address] Patient Name: Moe Sanchez Date: 1960 Date [...] luz marcos as needed for Chest pain. [place]-3 Fatty Acids (SALMON OIL-1000 PO) CAPS, one [...] (1980 1984); Hypoglycemia; Drug addiction in remission ([facility]); HTN (hypertension); Hypercholesterolemia; Bipolar 1 disorder ( [...] were not detected in the editing p [facility]. Should you have any questions or concerns, [...] | | | | | [place] [address] | | | | | | [phone] | | | | | | | | +--------+---------+ + + + | 01/01/ | Office | Cardiology | Silvia, | | | 2019 | Visit | | PARISA Vernon [address] | | | | | | [place], | | | | | | [place] [address] | | | | | | [phone] | | | | | | | [...]
--- OUTSIDE RECORDS SUMMARY | ~2019-12-06 | XMS | Encounter Summary ---
Demographics + + + | Address | [address] | | | [place] [address] | + + + | Home Phone [...] Team Providers + +------+ + | Care Flame Planer Name | Role | Phone | + [...] Medication Refill | | 2019 | | [facility] | MD Bre[address] | | | | | [facility] [address] | | | | | [address] | [place] [address] | | | | | [place], [place] | [phone] | | | | | [address] | | | | | | [phone] | | | +--------+--------+ + + + [...] | | | | | [place] [address] | | | | | | [phone] | | | | | | | | +--------+---------+ + + + | 01/01/ | Office | Cardiology | Silvia, | | | 2019 | Visit | | PARISA Vernon [address] | | | | | | [place] | | | | | | [place] [address] | | | | | | [phone] | | | | | | | | +--------+---------+ + + + documented as of this encounter Visit Diagnoses Not on filedocumented in this encounter"
--- OUTSIDE RECORDS SUMMARY | ~2019-12-06 | XMS | Encounter Summary ---
Demographics + + + | Address | [address] | | | [place] [address] | + + + | Home Phone [...] Providers + +------+ + | Care Mold Sprayer Name | Role | Phone | [...] + | 04/12/ | Telephone | [facility] | Daljit Singletary, | Other (issues with | | 2017 | | CARDIOLOGY [address] | MD [address] [place] | low blood pressure | | | | [place], | [place], | and dizziness) | | | | [place] [address] | [place] [address] | | | | | [phone] | [phone] | | | | | | | [...] | | | | | [place] [address] | | | | | | [phone] | | | | | | | | +--------+---------+ + + + | 01/01/ | Office | Cardiology | Silvia, | | | 2019 | Visit | | PARISA Vernon [address] | | | | | | [place] | | | | | | [place] [address] | | | | | | [phone] | | | | | | | | +--------+---------+ + + + documented as of this encounter Visit Diagnoses Not on filedocumented in this encounter"
--- OUTSIDE RECORDS SUMMARY | ~2019-12-06 | XMS | Encounter Summary ---
Demographics + + + | Address | [address] | | | [place] [address] | + + + | Home Phone [...] Providers + +------+ + | Care Cheese Specialist Name | Role | Phone | + +------+ + | Michael Amanda DO | PCP | | + +------+ + Encounter Details +--------+ + + + + | Date | Type | Department | Care Team | Description | +--------+ + + + + | 04/03/ | Hospital | [facility] | Jay Gambino MD | | | 2012 - | Encounter | HEART MED CTR | [address] | | | | | CARDIAC TRANSPLANT | [address] [place] | | | 04/04/ | | [address] | [place] [address] | | | 2012 | | [place] | [phone] | | | | | [address] | | | | | | [phone] | | | +--------+ + + + [...] 1960 ADMISSION DATE: 04/03/2013 DISCHARGE DATE: 04/04/2013 [id number] / [id number] ADMISSION DIAGNOSES: 1. Symptomatic premature ventricular contractions [...] study and ablati on. MOE GAY ADM:04/03/13 [id number] 04/04/13 [place] DISCHARGE SUMMARY Z640-01 [id number] [facility] PARISA Hughes [facility] MD Meena [...] 180 mg once daily. MOE GAY ADM:04/03/13 [id number] 04/04/13 DIS [place] DISCHARGE SUMMARY Z640-01 [id number] [facility] PARISA Hughes [facility] MD [...] 1 to 2 tablets once daily. 13. [place] oil 2 tablets twice daily. 14. Valacyclovir 500 mg once daily. There were no new medications or medication dosage changes at time of discharge. PLAN: 1. Mr. Gay will be discharged home on medications as noted above, including his usual m edications of diltiazem and metoprolol. 2. He will be seen and followed by Dr. Gambino on 16 at 9:00 a.m. at [facility], [address]. 3. He will contact our office earlier than scheduled appointment should he have any diffic ulty prior to that time. PARISA Hughes MD A P RICHIE/med #[id number] cc: MD Dona Pleitez ARNP Suwong Wongsuwan, MD Electronically Signed 04/12/13 1400 PARISA Hughes Electronically Signed 05/22/13 1245 Jay Gambino MD MOE GAY ADM:04/03/13 [id number] 04/04/13 DIS [place] DISCHARGE SUMMARY [id number] [facility] PARISA Hughes ES B [facility] Jay Gambino MD R THIS REPORT IS CONFIDENTIAL AND NOT TO BE RELEASED WITHOUT PROPER AUTHORIZATION.Electronica lly signed by Jael Brown at 05/22/2013 1:25 PM Dona rGossman ARNP - 04/04/2013 9:05 AM PDT PATIENT NAME: MOE GAY Sex/Age: M / 53Y : 1960 ADMISSION DATE: 04/03/2013 DISCHARGE DATE: 04/04/2013 [id number] / [id number] ADMISSION DIAGNOSES: 1. Symptomatic premature ventricular contractions [...] and ablati on. MOE GAY Jaimee ADM:04/03/13 [id number] 04/04/13 DIS [place] DISCHARGE SUMMARY Z640-01 [id number] [facility] PARISA Hughes [facility] MD Meena [...] 180 mg once daily. MOE GAY ADM:04/03/13 [id number] 04/04/13 DIS [place] DISCHARGE SUMMARY Z640-01 [id number] [facility] PARISA Hughes [facility] MD Meena [...] 1 to 2 tablets once daily. 13. [place] oil 2 tablets twice daily. 14. Valacyclovir 500 mg once daily. There were no new medications or medication dosage changes at time of discharge. PLAN: 1. Mr. Gay will be discharged home on medications as noted above, including his usual m edications of diltiazem and metoprolol. 2. He will be seen and followed by Dr. Gambino on 16 at 9:00 a.m. at [facility], [address]. 3. He will contact our office earlier than scheduled appointment should he have any diffic ulty prior to that time. PARISA Hughes MD A P RICHIE/med #[id number] cc: MD Dona Pleitez ARNP Suwong Wongsuwan, MD Electronically Signed 04/12/13 1400 PARISA Hughes MOE GAY ADM:04/03/13 [id number] 04/04/13 DIS [place] DISCHARGE SUMMARY Z640-01 [id number] [facility] PARISA Hughes [place] MD Meena [...] + + +---------+ + + | [place]-3 Fatty | CAPS, one capsule by | [...] | | | | | | [address] | | | | | | [place] [address] | | | | | | [phone] | | | | | | | | +--------+---------+ + + + | 01/01/ | Office | Cardiology | Silvia, | | | 2020 | Visit | | PARISA Vernon [address] | | | | | | [place], | | | | | | [place] [address] | | | | | | [phone] | | | | | | | [...] + + + | Glucose | 94Comment: Togolese | 65 - 99 mg/dL | [...] + | YESSY JONES | [address] | [place] [address] | | | [facility] | | | | | LABORATORY [...] + | YESSY JONES | [address] | [place] [address] | | | [facility] | | | | | LABORATORY | | | | + + + + + documented in this encounter Visit Diagnoses Not on filedocumented in this encounter"
--- OUTSIDE RECORDS SUMMARY | ~2019-12-06 | XMS | Encounter Summary ---
Demographics + + + | Address | [address] [place] [address] [address] | | | [place] [address] | + + + | Home Phone [...] [place] | | | | | [address] | | + + + + + Care Team Providers + +------+ + | Care Regional Trainer Name | Role | Phone | [...] | Center at [facility] [address] | Gastroenterology | Gastroenterology | | | | [address]A [place] | | | | | | Mailcode: [place] | | | | | | [facility] and | | | | | | [place] [address] | | | | | | [place], [place] | | | | | | [address] | | | | | | [phone] | | | +--------+ + + + [...]
--- OUTSIDE RECORDS SUMMARY | ~2019-12-06 | XMS | Encounter Summary ---
Demographics + + + | Address | [address] | | | [place] [address] | + + + | Home Phone [...] Providers + +------+ + | Care Gis Analyst Name | Role | Phone | [...] [address] | | | | | [place], | [place], | | | | | [place] [address] | [place] [address] | | | | | [phone] | [phone] | | | | | | | [...] | | | | | [place] [address] | | | | | | [phone] | | | | | | | | +--------+---------+ + + + | 01/01/ | Office | Cardiology | Silvia, | | | 2019 | Visit | | PARISA Vernon [address] | | | | | | [place], | | | | | | [place] [address] | | | | | | [phone] | | | | | | | | +--------+---------+ + + + documented as of this encounter Visit Diagnoses Not on filedocumented in this encounter"
--- OUTSIDE RECORDS SUMMARY | ~2019-12-06 | XMS | Encounter Summary ---
Demographics + + + | Address | [address] | | | [place] [address] | + + + | Home Phone [...] +------+ + | Care Sales And Marketing Professional Name | Role | Phone | [...] + | 01/25/ | Telephone | [facility] | Daljit Singletary, | Appointment | | 2017 | | CARDIOLOGY [address] | MD [address] [place] | | | | | [place], | [place], | | | | | [place] [address] | [place] [address] | | | | | [phone] | [phone] | | | | | | | [...] | | | | | [place] [address] | | | | | | [phone] | | | | | | | | +--------+---------+ + + + | 01/01/ | Office | Cardiology | Silvia, | | | 2019 | Visit | | PARISA Vernon [address] | | | | | | [place], | | | | | | [place] [address] | | | | | | [phone] | | | | | | | | +--------+---------+ + + + documented as of this encounter Visit Diagnoses Not on filedocumented in this encounter"
--- OUTSIDE RECORDS SUMMARY | ~2019-12-06 | XMS | Encounter Summary ---
Demographics + + + | Address | [address] | | | [place] [address] | + + + | Home Phone [...] Providers + +------+ + | Care Nurse Administrator Name | Role | Phone | [...] CASE | RN | (referral from [facility]) | | | | MANAGEMENT [address] | | | | | | [place], | | | | | | [place] [address] | | | | | | [phone] | | | +--------+ + + + [...] | | | | | [place] [address] | | | | | | [phone] | | | | | | | | +--------+---------+ + + + | 01/01/ | Office | Cardiology | Silvia, | | | 2019 | Visit | | PARISA Vernon [address] | | | | | | [place] | | | | | | [place] [address] | | | | | | [phone] | | | | | | | | +--------+---------+ + + + documented as of this encounter Visit Diagnoses Not on filedocumented in this encounter"
--- OUTSIDE RECORDS SUMMARY | ~2019-12-06 | XMS | Encounter Summary ---
Demographics + + + | Address | [address] | | | [place] [address] | + + + | Home Phone [...] Providers + +------+ + | Care Casting Assistant Name | Role | Phone | + +------+ + | Kirk French MD | PCP | | + +------+ + Encounter Details +--------+---------+ + + + | Date | Type | Department | Care Team | Description | +--------+---------+ + + + | 12/24/ | Surgery | [facility] | Emmanuel Daniel MD | EGD | | 2018 | | MED CTR MP INTRA OP | [address], [place] | | | | | [address] | [address] [place], [place] | | | | | [place], [place] | [address] | | | | | [address] | | | | | | [phone] | | | +--------+---------+ + + + [...] | | | | | [place] [address] | | | | | | [phone] | | | | | | | | +--------+---------+ + + + | 01/01/ | Office | Cardiology | Silvia, | | | 2019 | Visit | | PARISA Vernon [address] | | | | | | [place], | | | | | | [place] [address] | | | | | | [phone] | | | | | | | [...] | Performed at: 01 - [facility] [address], | REFERENCE LAB | | [place], [place] [address] Resource Development Director: William Andrew MD, Phone: | ARSH - KINA | | [phone] | | + + + + + + + + | Performing | Address | City/State/Zipcode | Phone Number | | Organization | | | | + + + + + | REFERENCE LAB | [address] | [place] [address] | [phone] | | [facility] | Drive [...] + | [facility] | [address] | [place] | [phone] | | [facility] | | [address] | | | - LABORATORY | | [...] | | | Aeromonas, Plesiomonas, | | [facility] | | | | E. coli [...] + | [facility] | [address] | [place] | [phone] | | [facility] | | [address] | | | - LABORATORY | | [...] | [address] | [place], [place] | [phone] | | [facility] | | [address] | | | - LABORATORY | | [...] | Performed at: 01 - [facility] [address], | REFERENCE LAB | | [place], [place] [address] Resource Development Director: William Andrew MD, Phone: | [facility] | | [phone] | | + + + + + + + + | Performing | Address | City/State/Zipcode | Phone Number | | Organization | | | | + + + + + | REFERENCE LAB | [address] | [place] [address] | [phone] | | [facility] | Drive [...] + + | [facility] [facility] | [address] | [place] | [phone] | | [facility] | | [address] | | | - LABORATORY | | [...] [address] | [place] | [phone] | | [facility] | | [address] | | | - LABORATORY | | [...] [address] | [place] | [phone] | | [facility] | | [address] | | | - LABORATORY | | [...] [address] | [place] | [phone] | | [facility] | | [address] | | | - LABORATORY | | [...] + | [facility] | [address] | [place] | [phone] | | [facility] | | [address] | | | - LABORATORY | | | | + + + + + EGD (12/24/2017 1:19 PM PST) + + | Specimen | + + | | + + + + -+ | Narrative | Performed At | + + -+ | | [facility] | | GastroenterologyPatient Name: Moe Venegas Date: 12/24/2017 | [facility] | | 1:19 PMMRN: [id number] #: [id number] of : | | | 9Admit Type: AmbulatoryAge: 57Room: [facility] 01Gender: MaleNote | | | Status: FinalizedAttending MD: Emmanuel Daniel , [facility]: | | | Upper GI endoscopyIndications: Diarrhea, Weight | | | lossProviders: Emmanuel Daniel MD, Maria Isabel Morris RN, | | | Kim Hicks, Exercise Planner, [place] | | | Sapna Barakat MD (Anesthesia [...] the anesthesiologist and | | | the claim technician in the endoscopy suite. Mental Status [...] PMScope Out: 1:31:13 PM | | | [facility], [address] [facility] | | | [place] [address] | | | - Discharge patient to [...] |Scope Out: 1:31:13 PM | | | [facility], [address] [place], [place] | | | [address] | | + + -+ + +---------+ [...] 12/24/2017 | [facility] | | 1:17 PMMRN: [id number] #: [id number] of : | | | 9Admit Type: AmbulatoryAge: 57Room: [facility] 01Gender: MaleNote | | | Status: FinalizedAttending MD: Emmanuel Daniel , MDProcedure: | | | ColonoscopyIndications: Clinically significant diarrhea of | | | unexplained originProviders: Emmanuel Daniel MD, Maria Isabel | | | Arturo, RN, Kim Hicks, Exercise Planner, | | | Jarett Barakat MD (Anesthesia [...] | | | the anesthesiologist and the claim technician in the endoscopy suite. | | [...] Scope In: 1:32:55 PMScope Out: 1:48:57 PM [facility] | | | [address] [address] | | | [phone] | | | - Await pathology results. [...] |Scope Out: 1:48:57 PM | | | [facility], [address] [place] [address] | | | [address] | | + + -+ + +---------+ [...] | colonic mucosa with focal adenomatous change. CLR:[facility]:C2NR | | | GROSS DESCRIPTION: [...] | | cm, submitted, all in (D1). ka:CLR:[facility] ADDITIONAL NOTES: | | | Immunohistochemical studies were performed on this case with the | | | appropriate positive controls that react as expected. This test was | | | developed and its performance characteristics determined by [employer] | | | [employer]. It has not been cleared or approved by the U.S. Food | | | and Drug Administration. The FDA has determined that such clearance | | | or approval is not necessary. This test is used for clinical | | | purposes. It should not be regarded as investigational or for | | | research. [employer] is certified under the Clinical | | | Laboratory Improvement Amendments of 1988 (CLIA) as qualified to | | | perform high complexity clinical laboratory testing. This assay | | | has not been validated for specimens that have been decalcified. | | | PERFORMING LABORATORY: Tissue processing and slide preparation were | | | performed by [employer], [address] | | | [place] [address] (Senior Gl Accountant: Evan Frausto M.D. CLIA#: | | | [id number]). Professional interpretation was performed by [employer] | | [employer], [address], [place] [address] | | | (Senior Gl Accountant: Evan Frausto M.D.; CLIA#: [id number]). | | | Diagnostician: Rafael Bales MD [...]
--- OUTSIDE RECORDS SUMMARY | ~2019-12-06 | XMS | Encounter Summary ---
Demographics + + + | Address | [address] | | | [place] [address] | + + + | Home Phone [...] Providers + +------+ + | Care Record Producer Name | Role | Phone | + +------+ + | Darion Holden DO | PCP | | + +------+ + Encounter Details +--------+ + + + + | Date | Type | Department | Care Team | Description | +--------+ + + + + | 08/05/ | Hospital | [facility] | Emmanuel Daniel MD | | | 2009 | Encounter | MED CTR XRAY [address] | [address] | | | | | [place] | [address] [place], [place] | | | | | [place] [address] | [address] | | | | | [phone] | | | +--------+ + + + [...] | | | | | [place] [address] | | | | | | [phone] | | | | | | | | +--------+---------+ + + + | 01/01/ | Office | Cardiology | Silvia, | | | 2019 | Visit | | PARISA Vernon [address] | | | | | | [place], | | | | | | [place] [address] | | | | | | [phone] | | | | | | | | +--------+---------+ + + + documented as of this encounter Visit Diagnoses Not on filedocumented in this encounter"
--- OUTSIDE RECORDS SUMMARY | ~2019-12-06 | XMS | Encounter Summary ---
Demographics + + + | Address | [address] | | | [place] [address] | + + + | Home Phone [...] Team Providers + +------+ + | Care Satellite Tv Technician Name | Role | Phone | [...] | [facility] | [address] | | | | | CARDIAC TELEMETRY | [address] [place], | | | 01/31/ | | [address] | [place] [address] | | | 2012 | | [place] | [phone] | | | | | [address] | | | | | | [phone] | | | +--------+ + + + [...] 1960 ADMISSION DATE: 01/30/2013 DISCHARGE DATE: 01/31/2013 [id number] / [id number] ADMITTING DIAGNOSES: 1. Symptomatic PVCs. 2. Sinus [...] 150, 1 to 2 tabs daily. 10. [place]-3 fatty acids 1000 mg b.i.d. MOE GAY ADM:01/30/13 [id number] 01/31/13 DIS [place] DISCHARGE SUMMARY [id number] [facility] Carmela Cuevas PAC B [facility] MD Meena Pleitez THIS REPORT IS CONFIDENTIAL AND NOT TO BE RELEASED WITHOUT PROPER AUTHORIZATION. [facility] 11. Valacyclovir 500 mg daily. B. New medication added: Diltiazem CD 180 a day. FOLLOWUP: The patient has a followup appointment on 03/02/2013 at 10:[address] Niles meza at the [facility], [address]. No heavy lifting or driving times 48 hours. YOANA Barlow MD A P [facility] #[id number] cc: MD Carmela Pleitez PA-C Electronically Signed 02/06/13 1616 LAKESHIA Barlow Electronically Signed 02/20/13 0731 Jay Gambino MD MOE GAY ADM:01/30/13 [id number] 01/31/13 DIS [place] DISCHARGE SUMMARY [id number] [facility] LAKESHIA Barlow B [facility] Jay Gambino MD R THIS REPORT IS CONFIDENTIAL AND NOT TO BE RELEASED WITHOUT PROPER AUTHORIZATION.[employer] lly signed by Jael Brown at 02/20/2013 7:31 AM FRANCYZzCarmela Moncada - 02/01/20 13 8:44 AM PDT PATIENT NAME: MOE GAY Sex/Age: M / 52Y : 1960 ADMISSION DATE: 01/30/2013 DISCHARGE DATE: 01/31/2013 [id number] / [id number] ADMITTING DIAGNOSES: 1. Symptomatic PVCs. 2. Sinus [...] 150, 1 to 2 tabs daily. 10. [place]-3 fatty acids 1000 mg b.i.d. MOE GAY ADM:01/30/13 [id number] 01/31/13 DIS [place] DISCHARGE SUMMARY [id number] [facility] LAKESHIA Barlow B [facility] MD Meena Pleitez THIS REPORT IS CONFIDENTIAL AND NOT TO BE RELEASED WITHOUT PROPER AUTHORIZATION. [facility] 11. Valacyclovir 500 mg daily. B. New medication added: Diltiazem CD 180 a day. FOLLOWUP: The patient has a followup appointment on 03/02/2013 at 10:[address] Niles meza at the [facility], [address]. No heavy lifting or driving times 48 hours. YOANA Barlow MD A P [facility] #[id number] cc: MD Carmela Pleitez PA-C Electronically Signed 02/06/13 1616 LAKESHIA Barlow MOE GAY ADM:01/30/13 [id number] 01/31/13 DIS [place] DISCHARGE SUMMARY [id number] [facility] LAKESHIA Barlow ES B [facility] [...] | | | | | [place] [address] | | | | | | [phone] | | | | | | | | +--------+---------+ + + + | 01/01/ | Office | Cardiology | Silvia, | | | 2020 | Visit | | PARISA Vernon [address] | | | | | | [place], | | | | | | [place] [address] | | | | | | [phone] | | | | | | | [...] + | [facility] | [address] [facility] [place]. | [place] [address] | | | [facility] | [...] + + | [facility] | [address] | [place] [address] | | | [facility] | | | | | LABORATORY | | | | + + + + + | [facility] | | | | | [facility] | | | | | LABORATORY [...] | Glucose | 113 (H)Comment: Citizen [place] | 65 - 99 mg/dL | [facility] | | | | Diabetes Association [...] + + | [facility]ON[facility] | [address] | [place] [address] | | | [facility] | | | | | LABORATORY | | | | + + + + + | [facility] | | | | | [facility] | | | | | LABORATORY | | | | + + + + + documented in this encounter Visit Diagnoses Not on filedocumented in this encounter"
--- OUTSIDE RECORDS SUMMARY | ~2019-12-06 | XMS | Encounter Summary ---
Demographics + + + | Address | [address] [place] [address] [address] | | | [place] [address] | + + + | Home Phone [...] [place] | | | | | [address] | | + + + + + Care Team Providers + +------+ + | Care Agile Business Analyst Name | Role | Phone [...] | | | | [facility] | [place], [place] | | | | | Mailcode: S[place] | [address] | | | | | for Health and | [phone] | | | | | [facility] [address] | | | | | | [place], [place] | | | | | | [address] | | | | | | [phone] | | | +--------+ + + + [...]
--- OUTSIDE RECORDS SUMMARY | ~2019-12-06 | XMS | Encounter Summary ---
Demographics + + + | Address | [address] | | | [place] [address] | + + + | Home Phone [...] Team Providers + +------+ + | Care Hard Metals Engraver Hand Name | Role | Phone | + +------+ + PCP | Unavailable | + +------+ + Encounter Details +--------+ + + + + | Date | Type | Department | Care Team | Description | +--------+ + + + + | 02/28/ | [facility] | [facility] | Geri Angel, | | | 2011 | Encounter | MED CTR XRAY [address] | TIMBER SPRINKLER [address] | | | | | [place] | [address] [place] | | | | | [place] [address] | [address] | | | | | [phone] | | | +--------+ + + + [...] | | | | | [place] [address] | | | | | | [phone] | | | | | | | | +--------+---------+ + + + | 01/01/ | Office | Cardiology | Silvia, | | | 2019 | Visit | | PARISA Vernon [address] | | | | | | [place], | | | | | | [place] [address] | | | | | | [phone] | | | | | | | [...] | [facility] | [facility] | | [address] [facility] | [facility] | | LEFT HEART CATHETERIZATION | DIAG [...] was taken to | | | Cardiac Director Of Construction. He was prepared and draped in the usual fashion | | | under a sterile technique and local anesthesia, percutaneous access | | | was obtained using #6- Namibian sheath in the right femoral artery. | | | Right heart cath was not performed in this patient. Left | | | ventriculography was performed using #6-Namibian pigtail catheter. | | | The selective coronary angiography were then performed in several | | | sagittal and oblique projection using the 6-Namibian JL 4 and #6 Namibian | | | 3DRC diagnostic catheters. The [...] Transcribed | | | Date/Time: 02/29/2012 09:09 Offset Plate Maker: | | | <Electronically Signed by Daljit Singletary MD [facility] FASE> 02/29/12 | | | 1002 | | + + + + + | Procedure Note | + + | Kevin, Rad Conversion - 12/29/2013 5:04 PM [facility] | | Diagnostic Imaging Department | | [address], [facility] | | | | | | [...] patient was taken to Cardiac | | Director Of Construction. He was prepared and draped in the usual fashion under a sterile | | technique and local anesthesia, percutaneous access was obtained using #6- | | Namibian sheath in the right femoral artery. Right heart cath was not performed | | in this patient. Left ventriculography was performed using #6-Namibian pigtail | | catheter. The selective coronary angiography were then performed in several | | sagittal and oblique projection using the 6-Namibian JL 4 and #6 Namibian 3DRC | | diagnostic catheters. The patient [...] | Transcribed Date/Time: 02/29/2012 09:09 | | Offset Plate Maker: | | <Electronically Signed by Daljit Singletary MD [facility] ADELINE> 02/29/12 1002 | + [...]
--- OUTSIDE RECORDS SUMMARY | ~2019-12-06 | XMS | Encounter Summary ---
Demographics + + + | Address | [address] | | | [place] [address] | + + + | Home Phone [...] Team Providers + +------+ + | Care Salary Manager Name | Role | Phone | + +------+ + PCP | Unavailable | + +------+ + Encounter Details +--------+ + + + + | Date | Type | Department | Care Team | Description | +--------+ + + + + | 01/20/ | [facility] | [facility] | Geri Angel, | | | 2009 | Encounter | MED CTR GENERIC OP | CHAINSTITCH BINDER [address] | | | | | CONV DEPT [address] | [address] [place] | | | | | [place], | [id number] | | | | | [place] [address] | | | | | | [phone] | | | +--------+ + + + [...] | | | | | [place] [address] | | | | | | [phone] | | | | | | | | +--------+---------+ + + + | 01/01/ | Office | Cardiology | Silvia, | | | 2020 | Visit | | PARISA Vernon [address] | | | | | | [place], | | | | | | [place] [address] | | | | | | [phone] | | | | | | | | +--------+---------+ + + + documented as of this encounter Visit Diagnoses Not on filedocumented in this encounter"
--- OUTSIDE RECORDS SUMMARY | ~2019-12-06 | XMS | Encounter Summary ---
Demographics + + + | Address | [address] | | | [place] [address] | + + + | Home Phone [...] Team Providers + +------+ + | Care Nicker And Breaker Name | Role | Phone | [...] [place] | | | | | | [address] | | | | | | [phone] | | | +--------+ + + + [...] | | | | | [place] [address] | | | | | | [phone] | | | | | | | | +--------+---------+ + + + | 01/01/ | Office | Cardiology | Silvia, | | | 2019 | Visit | | PARISA Vernon [address] | | | | | | [place], | | | | | | [place] [address] | | | | | | [phone] | | | | | | | | +--------+---------+ + + + documented as of this encounter Visit Diagnoses Not on filedocumented in this encounter"
--- OUTSIDE RECORDS SUMMARY | ~2019-12-06 | XMS | Encounter Summary ---
Demographics + + + | Address | [address] | | | [place] [address] | + + + | Home Phone [...] + +------+ + | Care Social Worker Palliative Care Name | Role | Phone | [...] | RN | | | | | [place], | | | | | | [place] [address] | | | | | | [phone] | | | +--------+ + + + [...] | | | | | [place] [address] | | | | | | [phone] | | | | | | | | +--------+---------+ + + + | 01/01/ | Office | Cardiology | Silvia, | | | 2020 | Visit | | PARISA Vernon [address] | | | | | | [place], | | | | | | [place] [address] | | | | | | [phone] | | | | | | | | +--------+---------+ + + + documented as of this encounter Visit Diagnoses Not on filedocumented in this encounter"
--- OUTSIDE RECORDS SUMMARY | ~2019-12-06 | XMS | Encounter Summary ---
Demographics + + + | Address | [address] | | | [place] [address] | + + + | Home Phone [...] Providers + +------+ + | Care Drawer In Name | Role | Phone | + +------+ + PCP | Unavailable | + +------+ + Encounter Details +--------+ + + + + | Date | Type | Department | Care Team | Description | +--------+ + + + + | 08/02/ | Hospital | [facility] | | | | 2001 | Encounter | MED CTR EMERGENCY | | | | | | [place] [address] | | | | | | [place] | | | | | | [address] | | | | | | [phone] | | | +--------+ + + + [...] | | | | | [place] [address] | | | | | | [phone] | | | | | | | | +--------+---------+ + + + | 01/01/ | Office | Cardiology | Silvia, | | | 2020 | Visit | | PARISA Vernon [address] | | | | | | [place], | | | | | | [place] [address] | | | | | | [phone] | | | | | | | | +--------+---------+ + + + documented as of this encounter Visit Diagnoses Not on filedocumented in this encounter"
--- OUTSIDE RECORDS SUMMARY | ~2019-12-06 | XMS | Encounter Summary ---
Demographics + + + | Address | [address] | | | [place] [address] | + + + | Home Phone [...] Providers + +------+ + | Care Grounds Person Name | Role | Phone | [...] | | | | Sinoatrial | Geri, STORAGE ADMINISTRATOR | [address] | | | | | node | [address] | [place], | | | | | dysfunction | [place] | [place] | | | | | (HCC) | [place], [place] | [address] | | | | | Coronary | [address] | Phone: | | | | | artery | Phone: | [phone] | | | | | disease | [phone] | Fax: | | | | | involving | Fax: | [phone] | | | | | [place] | [phone] | | | | | | coronary | | | | | | | artery of | | | | | | | [place] heart | | | | | | [...] | | | | | | Complete [place] | | | | | | | ECHO HEART | | | | | | | XTHOR[place] | | | | | | | [address] | | | | | | | [place] | | | | | | [...] | | | | Sinoatrial | Geri, STORAGE ADMINISTRATOR | [address] | | | | | node | [address] | [place], | | | | | dysfunction | [place] | [place] | | | | | ([facility]) | [place], [place] | [address] | | | | | Coronary | [address] | Phone: | | | | | artery | Phone: | [phone] | | | | | disease | [phone] | Fax: | | | | | involving | Fax: | [phone] | | | | | [place] | [phone] | | | | | | coronary | | | | | | | artery of | | | | | | | [place] heart | | | | | | [...] | | | | | | Complete [place] | | | | | | | ECHO HEART | | | | | | | XTHORACIC,[place] | | | | | | | MPLETE [place] | | | | | | | [place] | | | | | | [...] + + + + | 06/16/ | [facility] | [facility] | Geri Angel, | Sinoatrial node | | 2016 | Encounter | MED CTR ECHO [address] | STORAGE ADMINISTRATOR [address] | dysfunction (HCC) | | | | [place] | [place], [place] | with symptomatic | | | | [place] [address] | [address] | bradycardia; | | | | [phone] | | Coronary artery | | | | | Juvenal Blake, | disease involving | | | | | Technologist | [place] coronary | | | | | | artery of [place] | | | | | | heart [...] + + +---------+ + + | [place]-3 Fatty | CAPS, one capsule by [...] | | | | | [place] [address] | | | | | | [phone] | | | | | | | | +--------+---------+ + + + | 01/01/ | Office | Cardiology | Silvia, | | | 2019 | Visit | | PARISA Vernon [address] | | | | | | [place], | | | | | | [place] [address] | | | | | | [phone] | | | | | | | [...] involving | | | | | | [place] coronary | | | | | | artery of [place] | | | | | | heart [...] Patient Name VICTOR HUGO NGUYEN | | [place] Room Number SARAH Patient | [facility] | | [id number] Date of Study 06/16/2016 Number | - IMAGING | | Visit Number [id number] | | | Referring Physician JOSE ARMANDO GARCIA Number Date of 1960 | | | Head Cager LUIS FERNANDO RIGOBERTO GERALD Age | | | 56 year(s) Interpreting | | | GURJIT TROY | | | Auto Wheel Alignment Specialist SYDNI CAGLE, | | | Gender | | | Male Nurse Procedure Type of Study TTE | | | procedure: ECHO Complete. Procedure dateDate: 06/16/2016Start: 10:55 | | | AM Technical Quality: Adequate visualizationStudy Location: Echo | | | LabIndications: CAD [place] CORONARY ARTERY 414.01/ I25.10 and | [...] BARRY Room Number SARAH | | Patient [id number] Date of Study 06/16/2016 Number Visit Number | | [id number] Referring Physician JOSE ARMANDO GARCIA Number | | Date of 1960 Head Cager LUIS FERNANDO DUARTE Age | | 56 year(s) Interpreting GURJIT TROY | | Auto Wheel Alignment Specialist SYDNI CAGLE, | | Gender Male NurseProcedureType of Study TTE | | procedure: ECHO Complete.Procedure dateDate: 06/16/2016Start: 10:55 AMTechnical Quality: | | Adequate visualizationStudy Location: Echo LabIndications: CAD [place] CORONARY ARTERY | | 414.01/ I25.10 [...] [address] | [place] | [phone] | | [facility] | | [address] | | | - IMAGING | | [...] [place] heart without | | angina pectoris | + + | Ascending thoracic aortic aneurysm (HCC) Thoracic aneurysm without mention of rupture | + + documented in this encounter"
--- OUTSIDE RECORDS SUMMARY | ~2019-12-06 | XMS | Encounter Summary ---
Demographics + + + | Address | [address] | | | [place] [address] | + + + | Home Phone [...] Refill | | 2011 | | [facility] [place] | DO [address] | | | | | [address] | [place] | | | | | [place] | [address] | | | | | [address] | | | | | | [phone] | | | +--------+--------+ + + + [...] | | | | | [place] [address] | | | | | | [phone] | | | | | | | | +--------+---------+ + + + | 01/01/ | Office | Cardiology | Silvia, | | | 2019 | Visit | | PARISA Vernon [address] | | | | | | [place], | | | | | | [place] [address] | | | | | | [phone] | | | | | | | | +--------+---------+ + + + documented as of this encounter Visit Diagnoses + + | Diagnosis | + + | Hypoglycemia - Primary Hypoglycemia, unspecified | + + documented in this encounter"
--- OUTSIDE RECORDS SUMMARY | ~2019-12-06 | XMS | Encounter Summary ---
Demographics + + + | Address | [address] [place] [address] [address] | | | [place] [address] | + + + | Home Phone [...] [place] | | | | | [address] | | + + + + + Care Team Providers + +------+ + | Care Electrical Integrator Name | Role | Phone | [...] | | | | [address] | [place], [place] | | | | | Mailcode: [place] | [address] | | | | | for Health and | [phone] | | | | | [facility] | | | | | | [place], [place] | | | | | | [address] | | | | | | [phone] | | | +--------+ + + + [...]
--- OUTSIDE RECORDS SUMMARY | ~2019-12-06 | XMS | Encounter Summary ---
Demographics + + + | Address | [address] | | | [place] [address] | + + + | Home Phone [...] Providers + +------+ + | Care Multi Operation Machine Operator Name | Role | Phone [...] Refill | | 2012 | | MEDICINE FULTON | DO [address] | | | | | [address] | [place] | | | | | [place] | [address] | | | | | [address] | | | | | | [phone] | | | +--------+--------+ + + + [...] | | | | | [place] [address] | | | | | | [phone] | | | | | | | | +--------+---------+ + + + | 01/01/ | Office | Cardiology | Silvia, | | | 2019 | Visit | | PARISA Vernon [address] | | | | | | [place], | | | | | | [place] [address] | | | | | | [phone] | | | | | | | | +--------+---------+ + + + documented as of this encounter Visit Diagnoses Not on filedocumented in this encounter"
--- OUTSIDE RECORDS SUMMARY | ~2019-12-06 | XMS | Encounter Summary ---
Demographics + + + | Address | [address] | | | [place] [address] | + + + | Home Phone [...] Team Providers + +------+ + | Care Team Truck Driver Name | Role | Phone [...] + + | 10/25/ | Telephone | [facility] | [place], | Other (patient has | | 2013 | | CARDIOLOGY [address] | Janeen CHIEF LOCK TENDER OPERATOR [address] | changed his mind) | | | | [place], | [place], | | | | | [place] [address] | [place] [address] | | | | | [phone] | [phone] | | | | | | | [...] | | | | | [place] [address] | | | | | | [phone] | | | | | | | | +--------+---------+ + + + | 01/01/ | Office | Cardiology | Silvia, | | | 2019 | Visit | | PARISA Vernon [address] | | | | | | [place], | | | | | | [place] [address] | | | | | | [phone] | | | | | | | | +--------+---------+ + + + documented as of this encounter Visit Diagnoses Not on filedocumented in this encounter"
--- OUTSIDE RECORDS SUMMARY | ~2019-12-06 | XMS | Encounter Summary ---
Demographics + + + | Address | [address] | | | [place] [address] | + + + | Home Phone [...] Providers + +------+ + | Care Technical Translator Name | Role | Phone | + +------+ + PCP | Unavailable | + +------+ + Encounter Details +--------+ + + + + | Date | Type | Department | Care Team | Description | +--------+ + + + + | 05/02/ | [facility] | [facility] | Jonathan, | | | 2009 | Encounter | MED CTR EMERGENCY | Martell Cr MD [address] | | | | | CENTER [address] | [place] | | | | | [place] | [place] [address] | | | | | [address] | [phone] | | | | | [phone] | | | +--------+ + + + [...] | | | | | [place], [place] [address] | | | | | | [phone] | | | | | | | | +--------+---------+ + + + | 01/01/ | Office | Cardiology | Silvia, | | | 2020 | Visit | | PARISA Vernon [address] | | | | | | [place], | | | | | | [place] [address] | | | | | | [phone] | | | | | | | | +--------+---------+ + + + documented as of this encounter Visit Diagnoses Not on filedocumented in this encounter"
--- OUTSIDE RECORDS SUMMARY | ~2019-12-06 | XMS | Encounter Summary ---
Demographics + + + | Address | [address] | | | [place] [address] | + + + | Home Phone [...] 2019 | | GASTROENTEROLOGY | [address], [place] | | | | | [address] [place] | [address] [place], [place] | | | | | [address] [place], [place] | [address] | | | | | [address] | | | | | | [phone] | | | +--------+--------+ + + + [...] | | | | | [place] [address] | | | | | | [phone] | | | | | | | | +--------+---------+ + + + | 01/01/ | Office | Cardiology | Silvia, | | | 2019 | Visit | | PARISA Vernon [address] | | | | | | [place] | | | | | | [place] [address] | | | | | | [phone] | | | | | | | | +--------+---------+ + + + documented as of this encounter Visit Diagnoses Not on filedocumented in this encounter"
--- OUTSIDE RECORDS SUMMARY | ~2019-12-06 | XMS | Encounter Summary ---
Demographics + + + | Address | [address] | | | [place] [address] | + + + | Home Phone [...] Providers + +------+ + | Care Cloth Pattern Maker Name | Role | Phone [...] 2014 | | CARDIOLOGY [address] | ALTERATIONS SEWER [address] [place] | | | | | [place], | [place], [place] | | | | | [place] [address] | [address] | | | | | [phone] | | | +--------+ + + + [...] | | | | | | [place] [address] | | | | | | [phone] | | | | | | | | +--------+---------+ + + + | 01/01/ | Office | Cardiology | Silvia, | | | 2019 | Visit | | PARISA Vernon [address] | | | | | | [place], | | | | | | [place] [address] | | | | | | [phone] | | | | | | | | +--------+---------+ + + + documented as of this encounter Visit Diagnoses Not on filedocumented in this encounter"
--- OUTSIDE RECORDS SUMMARY | ~2019-12-06 | XMS | Encounter Summary ---
Demographics + + + | Address | [address] | | | [place] [address] | + + + | Home Phone [...] Providers + +------+ + | Care Meter Reader Name | Role | Phone | [...] [address] | | | | | [place], | [place], | | | | | [place] [address] | [place] [address] | | | | | [phone] | [phone] | | | | | | | [...] | | | | | [place] [address] | | | | | | [phone] | | | | | | | | +--------+---------+ + + + | 01/01/ | Office | Cardiology | Silvia, | | | 2020 | Visit | | PARISA Vernon [address] | | | | | | [place] | | | | | | [place] [address] | | | | | | [phone] | | | | | | | | +--------+---------+ + + + documented as of this encounter Visit Diagnoses Not on filedocumented in this encounter"
--- OUTSIDE RECORDS SUMMARY | ~2019-12-06 | XMS | Encounter Summary ---
Demographics + + + | Address | [address] | | | [place] [address] | + + + | Home Phone [...] + +------+ + | Care Import Export Manager Name | Role | Phone | [...] Refill | | 2011 | | MEDICINE SWITZER | DO [address] | | | | | [address] | [place] | | | | | [place] | [address] | | | | | [address] | | | | | | [phone] | | | +--------+--------+ + + + [...] | | | | | [place] [address] | | | | | | [phone] | | | | | | | | +--------+---------+ + + + | 01/01/ | Office | Cardiology | Silvia, | | | 2019 | Visit | | PARISA Vernon [address] | | | | | | [place], | | | | | | [place] [address] | | | | | | [phone] | | | | | | | | +--------+---------+ + + + documented as of this encounter Visit Diagnoses + + | Diagnosis | + + | Hypoglycemia - Primary Hypoglycemia, unspecified | + + documented in this encounter"
--- OUTSIDE RECORDS SUMMARY | ~2019-12-06 | XMS | Encounter Summary ---
Demographics + + + | Address | [address] [place] [address] [address] | | | [place] [address] | + + + | Home Phone [...] [place] | | | | | [address] | | + + + + + Care Team Providers + +------+ + | Care Crackling Press Operator Name | Role | Phone [...] | | | | | | [facility] | [facility] | | | | | TRANSTHORACI | [place], [place] | for Health | | | | | C | [address] | and Healing, | | | | | ECHOCARDIOGR | Phone: | Building [address] | | | | | AM, ADULT | [phone] | [place], [place] | | | | | | Fax: | [address] | | | | | | [phone] | Phone: | | | | | | | [phone] | +--------+--------+ + + + + Encounter Details +--------+ + + + + | Date | Type | Department | Care Team | Description | +--------+ + + + + | 02/03/ | Hospital | Cardiac | | | | 2010 | Encounter | Non-Invasive Testing | | | | | | at [facility] [address] | | | | | | [place] [address]ane Mailcode: | | | | | | [facility] | | | | | | Health and Healing, | | | | | | [address] | | | | | | [place], [place] | | | | | | [address] | | | | | | [phone] | | | +--------+ + + + [...]
--- OUTSIDE RECORDS SUMMARY | ~2019-12-06 | XMS | Encounter Summary ---
Demographics + + + | Address | [address] | | | [place] [address] | + + + | Home Phone [...] Providers + +------+ + | Care Food Safety Specialist Name | Role | Phone [...] | | | | CENTER [address] | [place], [place] | insufficiency | | | | [place], [place] | [address] | | | | | [address] | | | | | | [phone] | | | +--------+ + + + [...] sent through Care Everywhere.PERIPHERAL KENYETTA A, BILATERAL (PORTUGUESE)documented in this encounter Medications at Time of [...] + + + +---------+ + + | [place]-3 Fatty | CAPS, one capsule by [...] | | | | | | | #[id number], exp 07/2016 | | | | | [...] | | | | | [place] [address] | | | | | | [phone] | | | | | | | | +--------+---------+ + + + | 01/01/ | Office | Cardiology | Silvia, | | | 2019 | Visit | | PARISA Vernon [address] | | | | | | [place] | | | | | | [place] [address] | | | | | | [phone] | | | | | | | | +--------+---------+ + + + documented as of this encounter Visit Diagnoses + + | Diagnosis | + + | Peripheral edema - Primary Edema | + + | Venous insufficiency Unspecified venous (peripheral) insufficiency | + + documented in this encounter
--- OUTSIDE RECORDS SUMMARY | ~2019-12-06 | XMS | Encounter Summary ---
Demographics + + + | Address | [address] | | | [place] [address] | + + + | Home Phone [...] Providers + +------+ + | Care Pigment Pumper Name | Role | Phone | + +------+ + | Kirk French MD | PCP | | + +------+ + Encounter Details +--------+ + + + + | Date | Type | Department | Care Team | Description | +--------+ + + + + | 03/15/ | Hospital | [facility] | Conversion | | | 2017 | Encounter | [facility] XRAY | Transaction, | | | | | [address] | Provider Unknown | | | | | [address] [place] | [phone] | | | | | [address] | | | | | | [phone] | Kirk French | | | | | | MD Brea [address] | | | | | | [address] [place], | | | | | | [place] [address] | | | | | | [phone] | | | | | | | [...] | | | | | [place] [address] | | | | | | [phone] | | | | | | | | +--------+---------+ + + + | 01/01/ | Office | Cardiology | Silvia, | | | 2020 | Visit | | PARISA Vernon [address] | | | | | | [place], | | | | | | [place] [address] | | | | | | [phone] | | | | | | | | +--------+---------+ + + + documented as of this encounter Visit Diagnoses Not on filedocumented in this encounter"
--- OUTSIDE RECORDS SUMMARY | ~2019-12-06 | XMS | Encounter Summary ---
Demographics + + + | Address | [address] | | | [place] [address] | + + + | Home Phone [...] Providers + +------+ + | Care Pipeline Executive Name | Role | Phone | + +------+ + | Kirk French MD | PCP | | + +------+ + Encounter Details +--------+ + + + + | Date | Type | Department | Care Team | Description | +--------+ + + + + | 04/07/ | Hospital | [facility] | Pia Akhtar | Spinal stenosis of | | 2016 | Encounter | MED CTR XRAY [address] | MD [address] | lumbar region | | | | [place] | [address] | | | | | [place] [address] | [place] [address] | | | | | [phone] | [phone] | | | | | | | [...] + + + +---------+ + + | [place]-3 Fatty | CAPS, one capsule by | [...] | | | | | [place] [address] | | | | | | [phone] | | | | | | | | +--------+---------+ + + + | 01/01/ | Office | Cardiology | Silvia, | | | 2019 | Visit | | PARISA Vernon [address] | | | | | | [place] | | | | | | [place] [address] | | | | | | [phone] | | | | | | | [...]
--- OUTSIDE RECORDS SUMMARY | ~2019-12-06 | XMS | Encounter Summary ---
Demographics + + + | Address | [address] | | | [place] [address] | + + + | Home Phone [...] Providers + +------+ + | Care Quarter Supervisor Name | Role | Phone | [...] [address] | | | | | [place], | [place], | | | | | [place] [address] | [place] [address] | | | | | [phone] | [phone] | | | | | | | [...] | | | | | [place] [address] | | | | | | [phone] | | | | | | | | +--------+---------+ + + + | 01/01/ | Office | Cardiology | Silvia, | | | 2019 | Visit | | PARISA Vernon [address] | | | | | | [place], | | | | | | [place] [address] | | | | | | [phone] | | | | | | | | +--------+---------+ + + + documented as of this encounter Visit Diagnoses Not on filedocumented in this encounter"
--- OUTSIDE RECORDS SUMMARY | ~2019-12-06 | XMS | Encounter Summary ---
Demographics + + + | Address | [address] | | | [place] [address] | + + + | Home Phone [...] Providers + +------+ + | Care Roller Bearing Inspector Name | Role | Phone | [...] + + | 08/29/ | Office | [facility] | [place], | Essential | | 2015 | Visit | CARDIOLOGY [address] | PARISA [place] [address] | hypertension | | | | [place], | [place], | (Primary Dx); | | | | [place] [address] | [place] [address] | Coronary artery | | | | [phone] | [phone] | disease involving | | | | | | nan[place] [...] was seen in the emergency room at [facility] on 08/23/20 15 and the ER physician reviewed his chart saying that there were 2 ultrasounds from [facility] both of them are clear of DVT but reveal some venous insufficiency. Today, arian ent tells me that he started having swelling in both his feet within a week when he got to [facility]. He had extensive traveling. He went [...] Preventative health care Coronary artery disease involving [place] coronary artery without angina pectoris Cannabis abuse, [...] by mouth every evening. 90 tablet 3 [facility] Natural Products (OSTEO BI-FLEX/5-LOXIN ADVANCED [...] 3rd dose, call 911 100 tablet 3 [place]-3 Fatty Acids (SALMON OIL-1000 PO) CAPS, one [...] Daily. to reduce urinary frequenc y Lot #[id number], exp 07/2016 (Patient taking differently: Take 8 mg by mouth Daily. PATIENT STA YOSELIN NO LONGER TAKING THIS MEDICATION. STATED ON 08/29/2015. to reduce urinary frequency Lot #[id number], exp 07/2016) 21 capsule 0 Specialty Vitamins [...] PLTEX 163 07/26/2014 I reviewed records from [facility] for [...] brought reports to the emergency room at [facility] and according to the not es [...] to go back in 3 days to [place] for an attempt of ablation under general [...] dizziness. He is in class I-II of [place] [employer] functional class. T here are [...] this chart may have been created with [employer] voice recognition software. Occasi onal wrong-word or [...] | | | | | | [place] [address] | | | | | | [phone] | | | | | | | | +--------+---------+ + + + | 01/01/ | Office | Cardiology | Silvia, | | | 2020 | Visit | | PARISA Vernon [address] | | | | | | [place], | | | | | | [place] [address] | | | | | | [phone] | | | | | | | [...] the | | | | PDT | nanwalek coronary | results section. | | | [...] conveyed to the ordering provider, by the flare maker, | | | immediately following the exam. [...] to the ordering provider, by the | |flare maker, immediately following the exam. | | | [...] [address] | [place] | [phone] | | [facility] | | [address] | | | - IMAGING | | [...] MD | | | | | | [id number]) on 08/29/2015 | | | | | [...] + + | Coronary artery disease involving [place]k coronary artery without angina pectoris | + + | DVT (deep venous thrombosis), bilateral | + + documented in this encounter
--- OUTSIDE RECORDS SUMMARY | ~2019-12-06 | XMS | Encounter Summary ---
Demographics + + + | Address | [address] | | | [place] [address] | + + + | Home Phone [...] Providers + +------+ + | Care Outcomes Manager Name | Role | Phone | [...] 2012 | | CARDIOLOGY [address] | OUTCOMES MANAGER [address] [place] | to be referred | | | | [place], | [place], [place] | soon) | | | | [place] [address] | [address] | | | | | [phone] | | | +--------+ + + + [...] | | | | | [place] [address] | | | | | | [phone] | | | | | | | | +--------+---------+ + + + | 01/01/ | Office | Cardiology | Silvia, | | | 2019 | Visit | | PARISA Vernon [address] | | | | | | [place] | | | | | | [place] [address] | | | | | | [phone] | | | | | | | | +--------+---------+ + + + documented as of this encounter Visit Diagnoses Not on filedocumented in this encounter"
--- OUTSIDE RECORDS SUMMARY | ~2019-12-06 | XMS | Encounter Summary ---
Demographics + + + | Address | [address] | | | [place] [address] | + + + | Home Phone [...] Team Providers + +------+ + | Care Controls Design Engineer Name | Role | Phone | + +------+ + PCP | Unavailable | + +------+ + Encounter Details +--------+ + + + + | Date | Type | Department | Care Team | Description | +--------+ + + + + | 03/08/ | [facility] | [facility] | Emmanuel Daniel MD | | | 2006 | Encounter | MED CTR GENERIC OP | [address] [place] | | | | | CONV DEPT [address] | [address] [place] [address] | | | | | [place], | [address] | | | | | [place] [address] | | | | | | [phone] | | | +--------+ + + + [...] | | | | | [place] [address] | | | | | | [phone] | | | | | | | | +--------+---------+ + + + | 01/01/ | Office | Cardiology | Silvia, | | | 2020 | Visit | | PARISA Vernon [address] | | | | | | [place], | | | | | | [place] [address] | | | | | | [phone] | | | | | | | | +--------+---------+ + + + documented as of this encounter Visit Diagnoses Not on filedocumented in this encounter"
--- OUTSIDE RECORDS SUMMARY | ~2019-12-06 | XMS | Encounter Summary ---
Demographics + + + | Address | [address] | | | [place] [address] | + + + | Home Phone [...] Providers + +------+ + | Care Brand Marketing Coordinator Name | Role | Phone [...] Provider Unknown | | | | | [place], [place] | [phone] | | | | | [address] | | | | | | [phone] | | | +--------+ + + + [...] + + + +---------+ + + | [place]-3 Fatty | CAPS, one capsule by [...] | | | | | [place] [address] | | | | | | [phone] | | | | | | | | +--------+---------+ + + + | 01/01/ | Office | Cardiology | Silvia, | | | 2019 | Visit | | PARISA Vernon [address] | | | | | | [place], | | | | | | [place] [address] | | | | | | [phone] | | | | | | | [...]
--- OUTSIDE RECORDS SUMMARY | ~2019-12-06 | XMS | Encounter Summary ---
Demographics + + + | Address | [address] [place] [address] [address] | | | [place] [address] | + + + | Home Phone [...] [place] | | | | | [address] | | + + + + + Care Team Providers + +------+ + | Care Disc Pad Knockout Worker Name | Role | Phone | [...] | 2019 | | Center at [facility] [address] | MD [address] | | | | | [address] | [place], [place] | | | | | Mailcode: Center | [address] | | | | | [facility] and | [phone] | | | | | [facility] [address] | | | | | | [place], [place] | | | | | | [address] | | | | | | [phone] | | | +--------+ + + + [...]
--- OUTSIDE RECORDS SUMMARY | ~2019-12-06 | XMS | Encounter Summary ---
Demographics + + + | Address | [address] | | | [place] [address] | + + + | Home Phone [...] + +------+ + | Care Human Resources Manager Manufacturing Name | Role | Phone | + [...] Refill | | 2013 | | MEDICINE ARTIE | DO [address] | | | | | [address] | [place] | | | | | [place] | [address] | | | | | [address] | | | | | | [phone] | | | +--------+--------+ + + + [...] | | | | | | [place] | | | | | | [place] [address] | | | | | | [phone] | | | | | | | | +--------+---------+ + + + | 01/01/ | Office | Cardiology | Silvia, | | | 2019 | Visit | | PARISA [address] | | | | | | [place], | | | | | | [place] [address] | | | | | | [phone] | | | | | | | | +--------+---------+ + + + documented as of this encounter Visit Diagnoses Not on filedocumented in this encounter"
--- OUTSIDE RECORDS SUMMARY | ~2019-12-06 | XMS | Encounter Summary ---
Demographics + + + | Address | [address] | | | [place] [address] | + + + | Home Phone [...] + + + + | 12/24/ | [facility] | [facility] | Emmanuel Daniel MD | Pain of upper | | 2018 | Encounter | MED CTR MP INTRA OP | [address], [place] | abdomen (Primary | | | | [address] | [address] [place], [place] | Dx); Functional | | | | [place], [place] | [address] | diarrhea; Weight | | | | [address] | | loss | | | | [phone] | | | +--------+ + + + [...] | | | | | | [place] [address] | | | | | | [phone] | | | | | | | | +--------+---------+ + + + | 01/01/ | Office | Cardiology | Silvia, | | | 2019 | Visit | | PARISA [place] [address] | | | | | | [place], | | | | | | [place] [address] | | | | | | [phone] | | | | | | | [...] + + | Performed at: 01 - [facility] [address], | REFERENCE LAB | | [place], [place] [id number] Balloon Tester: William Andrew MD, Phone: | ARSH - KINA | | [phone] | | + + + + + + + + | Performing | Address | City/State/Zipcode | Phone Number | | Organization | | | | + + + + + | REFERENCE LAB | [address] | [place] [address] | [phone] | | [facility] | [address] | [place] | [phone] | | [facility] | | [address] | | | - LABORATORY | | [...] + | [facility] | [address] | [place] | [phone] | | [facility] | | [address] | | | - LABORATORY | | [...] [address] | [place] | [phone] | | [facility] | | [address] | | | - LABORATORY | | [...] + + | Performed at: 01 - [facility] [address], | REFERENCE LAB | | [place], [place] [id number] Balloon Tester: William Andrew MD, Phone: | ARSH CASTANON | | [phone] | | + + + + + + + + | Performing | Address | City/State/Zipcode | Phone Number | | Organization | | | | + + + + + | REFERENCE LAB | [address] | [place] [address] | [phone] | | [facility] | Drive [...] + | [facility] | [address] | [place] | [phone] | | [facility] | | [address] | | | - LABORATORY | | [...] ST. | [address] | [place] | [phone] | | [facility] | | [address] | | | - LABORATORY | | [...] [address] | [place] | [phone] | | [facility] | | [address] | | | - LABORATORY | | [...] [address] | [place] | [phone] | | [facility] | | [address] | | | - LABORATORY | | [...] ST. | [address] | [place], [place] | [phone] | | [facility] | | [address] | | | - LABORATORY | | | | + + + + + EGD (12/24/2017 1:19 PM PST) + + | Specimen | + + | | + + + + -+ | Narrative | Performed At | + + -+ | | [facility] | | GastroenterologyPatient Name: Moe Venegas Date: 12/24/2017 | [facility] | | 1:19 PMMRN: [id number] #: [id number] of : | | | 9Admit Type: AmbulatoryAge: 57Room: [facility] 01Gender: MaleNote | | | Status: FinalizedAttending MD: Emmanuel Daniel , [facility] | | | Upper GI endoscopyIndications: Diarrhea, Weight | | | lossProviders: Emmanuel Daniel MD, Maria Isabel Morris RN, | | | Kim Hicks, Venetian Blind Washer, Burns | | | Sapna Barakat MD (Anesthesia [...] the anesthesiologist and | | | the sonography technician in the endoscopy suite. Mental Status [...] | | | [facility], [address] [facility] | | | [place] [address] | | | - Discharge patient to [...] | | | [facility], [address] [facility], [place], [place] | | | [address] | | + + -+ + +---------+ [...] 12/24/2017 | [facility] | | 1:17 PMMRN: [id number] #: [id number] of : | | | 9Admit Type: AmbulatoryAge: 57Room: [facility] 01Gender: MaleNote | | | Status: FinalizedAttending MD: Emmanuel Daniel , [facility]cedure: | | | ColonoscopyIndications: Clinically significant diarrhea of | | | unexplained originProviders: Emmanuel Daniel MD, Joanne | | | Arturo RN, Kim Hicks, Venetian Blind Washer, | | | Jarett Barakat MD (Anesthesia [...] | | | the anesthesiologist and the sonography technician in the endoscopy suite. | | [...] Scope In: 1:32:55 PMScope Out: 1:48:57 PM [facility] | | | [facility], [address] [place] [address] | | | [phone] | | | - Await pathology results. [...] 1:48:57 PM | | | [facility], [facility] [address] [place], [place] | | | [address] | | + + -+ + +---------+ [...] colonic mucosa with focal adenomatous change. CLR:[facility]:C2NR | | | GROSS DESCRIPTION: Received [...] | cm, submitted, all in (D1). ka:CLR:[facility] ADDITIONAL NOTES: | | | Immunohistochemical studies were performed on this case with the | | | appropriate positive controls that react as expected. This test was | | | developed and its performance characteristics determined by [employer] | | | [facility]. It has not been cleared or approved by the U.S. Food | | | and Drug Administration. The FDA has determined that such clearance | | | or approval is not necessary. This test is used for clinical | | | purposes. It should not be regarded as investigational or for | | | research. [facility] is certified under the Clinical | | | Laboratory Improvement Amendments of 1988 (CLIA) as qualified to | | | perform high complexity clinical laboratory testing. This assay | | | has not been validated for specimens that have been decalcified. | | | PERFORMING LABORATORY: Tissue processing and slide preparation were | | | performed by [facility], [facility] [address] | | | [place] [address] (Cash [employer] Associate: Evan Frausto M.D. CLIA#: | | | [id number]). Professional interpretation was performed by [employer] [facility] | | [place], [address], [place] [address] | | | (Cash Applications Associate: Evan Frausto M.D.; CLIA#: [id number]). | | | Diagnostician: Rafael Bales MD [...]
--- OUTSIDE RECORDS SUMMARY | ~2019-12-06 | XMS | Encounter Summary ---
Demographics + + + | Address | [address] | | | [place] [address] | + + + | Home Phone [...] Providers + +------+ + | Care Ear Muff Assembler Name | Role | Phone | + +------+ + | Kirk French MD | PCP | | + +------+ + Encounter Details +--------+ + + + + | Date | Type | Department | Care Team | Description | +--------+ + + + + | 11/16/ | Hospital | [facility] | Kirk French | Aneurysm (HCC) | | 2017 | Encounter | MED CTR ULTRASOUND | D, MD [address] | | | | | [address] [place] | [address] | | | | | [place], [place] | [place] [address] | | | | | [address] | [phone] | | | | | [phone] | | | | | | | [...] + + + +---------+ + + | Falcon-3 Fatty | CAPS, one capsule by | [...] | | | | | [place] [address] | | | | | | [phone] | | | | | | | | +--------+---------+ + + + | 01/01/ | Office | Cardiology | Silvia, | | | 2019 | Visit | | PAR[facility] [place] [address] | | | | | | [place], | | | | | | [place] [address] | | | | | | [phone] | | | | | | | [...]
--- OUTSIDE RECORDS SUMMARY | ~2019-12-06 | XMS | Encounter Summary ---
Demographics + + + | Address | [address] | | | [place] [address] | + + + | Home Phone [...] Team Providers + +------+ + | Care Functional Support Analyst Name | Role | Phone [...] | on | GASTROENTEROLOGY | [address], [place] | | | | | [address] [place] | [address] [place], [place] | | | | | [address] [place], [place] | [address] | | | | | [address] | | | | | | [phone] | | | +--------+ + + + [...] | | | | | | [place] [address] | | | | | | [phone] | | | | | | | | +--------+---------+ + + + | 01/01/ | Office | Cardiology | Silvia, | | | 2019 | Visit | | PARISA [place] [address] | | | | | | [place] | | | | | | [place] [address] | | | | | | [phone] | | | | | | | | +--------+---------+ + + + documented as of this encounter Visit Diagnoses Not on filedocumented in this encounter"
--- OUTSIDE RECORDS SUMMARY | ~2019-12-06 | XMS | Encounter Summary ---
Demographics + + + | Address | [address] | | | [place] [address] | + + + | Home Phone [...] Providers + +------+ + | Care Zinc Plate Grainer Name | Role | Phone | + [...] CASE | RN | (referral from [facility]) | | | | MANAGEMENT [address] | | | | | | [place], | | | | | | [place] [address] | | | | | | [phone] | | | +--------+ + + + [...] | | | | | [place] [address] | | | | | | [phone] | | | | | | | | +--------+---------+ + + + | 01/01/ | Office | Cardiology | Silvia, | | | 2019 | Visit | | PARISA [place] [address] | | | | | | [place] | | | | | | [place] [address] | | | | | | [phone] | | | | | | | | +--------+---------+ + + + documented as of this encounter Visit Diagnoses Not on filedocumented in this encounter"
--- OUTSIDE RECORDS SUMMARY | ~2019-12-06 | XMS | Encounter Summary ---
Demographics + + + | Address | [address] | | | [place] [address] | + + + | Home Phone [...] Providers + +------+ + | Care Propellant Charge Zone Assembler Name | Role | Phone | + +------+ + PCP | Unavailable | + +------+ + Encounter Details +--------+ + + + + | Date | Type | Department | Care Team | Description | +--------+ + + + + | 04/23/ | Hospital | [facility] | | | | 2007 - | Encounter | MED CTR MED ONC | | | | | | [address] [place] | | | | 04/24/ | | [place] [address] | | | | 2007 | | [phone] | | | +--------+ + + + [...] | | | | | [place] [address] | | | | | | [phone] | | | | | | | | +--------+---------+ + + + | 01/01/ | Office | Cardiology | Silvia, | | | 2020 | Visit | | PAR[facility] [place] [address] | | | | | | [place], | | | | | | [place] [address] | | | | | | [phone] | | | | | | | | +--------+---------+ + + + documented as of this encounter Visit Diagnoses Not on filedocumented in this encounter"
--- OUTSIDE RECORDS SUMMARY | ~2019-12-06 | XMS | Encounter Summary ---
Demographics + + + | Address | [address] | | | [place] [address] | + + + | Home Phone [...] Team Providers + +------+ + | Care Mortician Supplies Sales Representative Name | Role | Phone [...] + | 06/27/ | Telephone | [facility] | Michael Amanda, | ED Follow-up (s/p | | 2014 | | [facility]ICINE [place] | DO [address] | [facility] | | | | [address] | [place] | | | | | [place] | [address] | | | | | [address] | | | | | | [phone] | | | +--------+ + + + [...] | | | | | | [place] [address] | | | | | | [phone] | | | | | | | | +--------+---------+ + + + | 01/01/ | Office | Cardiology | Silvia, | | | 2019 | Visit | | PARISA [place] [address] | | | | | | [place], | | | | | | [place] [address] | | | | | | [phone] | | | | | | | | +--------+---------+ + + + documented as of this encounter Visit Diagnoses Not on filedocumented in this encounter"
--- OUTSIDE RECORDS SUMMARY | ~2019-12-06 | XMS | Encounter Summary ---
Demographics + + + | Address | [address] | | | [place] [address] | + + + | Home Phone [...] Providers + +------+ + | Care Sports Equipment Racker Name | Role | Phone | [...] | CARDIOLOGY [address] | [facility] [address] | | | | | [place], | [place], | | | | | [place] [address] | [place] [address] | | | | | [phone] | [phone] | | | | | | | [...] | | | | | [place] [address] | | | | | | [phone] | | | | | | | | +--------+---------+ + + + | 01/01/ | Office | Cardiology | Silvia, | | | 2019 | Visit | | PARISA [place] [address] | | | | | | [place], | | | | | | [place] [address] | | | | | | [phone] | | | | | | | | +--------+---------+ + + + documented as of this encounter Visit Diagnoses Not on filedocumented in this encounter"
--- OUTSIDE RECORDS SUMMARY | ~2019-12-06 | XMS | Encounter Summary ---
Demographics + + + | Address | [address] | | | [place] [address] | + + + | Home Phone [...] | | | | CENTER [address] | [place], [place] | | | | | [place], [place] | [address] | | | | | [address] | | | | | | [phone] | | | +--------+ + + + [...] new doc you can try [facility] at [facility] documented in this encounter Medications [...] + + + +---------+ + + | Boyd-3 Fatty | CAPS, one capsule by | [...] | | | | | [place] [address] | | | | | | [phone] | | | | | | | | +--------+---------+ + + + | 01/01/ | Office | Cardiology | Silvia, | | | 2020 | Visit | | PARISA [place] [address] | | | | | | [place], | | | | | | [place] [address] | | | | | | [phone] | | | | | | | | +--------+---------+ + + + documented as of this encounter Visit Diagnoses + + | Diagnosis | + + | Situational stress - Primary Other psychological or physical stress, not elsewhere | | classified | + + documented in this encounter
--- OUTSIDE RECORDS SUMMARY | ~2019-12-06 | XMS | Encounter Summary ---
Demographics + + + | Address | [address] | | | [place] [address] | + + + | Home Phone [...] Team Providers + +------+ + | Care Chip Separator Name | Role | Phone | [...] | 07/30/ | Telephone | [facility] [place] [facility] | Michael Amanda, | Results | | 2013 | | [facility]IC[facility] [place] | DO [address] | | | | | [address] | [place] | | | | | [place] | [address] | | | | | [address] | | | | | | [phone] | | | +--------+ + + + [...] | | | | | [place] [address] | | | | | | [phone] | | | | | | | | +--------+---------+ + + + | 01/01/ | Office | Cardiology | Silvia, | | | 2019 | Visit | | PARISA [place] [address] | | | | | | [place], | | | | | | [place] [address] | | | | | | [phone] | | | | | | | | +--------+---------+ + + + documented as of this encounter Visit Diagnoses Not on filedocumented in this encounter"
--- OUTSIDE RECORDS SUMMARY | ~2019-12-06 | XMS | Encounter Summary ---
Demographics + + + | Address | [address] | | | [place] [address] | + + + | Home Phone [...] Team Providers + +------+ + | Care Antisqueak Filler Name | Role | Phone | [...] + | 02/16/ | Telephone | [facility] | Silvia, | Other (concerned | | 2012 | | CARDIOLOGY [address] | [place] [address] | about palpitations) | | | | [place], | [place], | | | | | [place] [address] | [place] [address] | | | | | [phone] | [phone] | | | | | | | [...] | | | | | [place] [address] | | | | | | [phone] | | | | | | | | +--------+---------+ + + + | 01/01/ | Office | Cardiology | Silvia, | | | 2019 | Visit | | PARISA [place] [address] | | | | | | [place], | | | | | | [place] [address] | | | | | | [phone] | | | | | | | | +--------+---------+ + + + documented as of this encounter Visit Diagnoses Not on filedocumented in this encounter"
--- OUTSIDE RECORDS SUMMARY | ~2019-12-06 | XMS | Encounter Summary ---
Demographics + + + | Address | [address] | | | [place] [address] | + + + | Home Phone [...] Providers + +------+ + | Care Research Methods Instructor Name | Role | Phone | [...] | 06/17/ | Telephone | [facility] [place] | [place]via, | Lab Order (due for | | 2015 | | CARDIOLOGY [address] | [place] [address] | fasting labs prior | | | | [place], | [place], | to appt) | | | | [place] [address] | [place] [address] | | | | | [phone] | [phone] | | | | | | | [...] | | | | | [place] [address] | | | | | | [phone] | | | | | | | | +--------+---------+ + + + | 01/01/ | Office | Cardiology | Silvia, | | | 2019 | Visit | | PAR[facility] [place] [address] | | | | | | [place] | | | | | | [place] [address] | | | | | | [phone] | | | | | | | | +--------+---------+ + + + documented as of this encounter Visit Diagnoses + + | Diagnosis | + + | Hyperlipidemia, mixed - Primary Mixed hyperlipidemia | + + documented in this encounter"
--- OUTSIDE RECORDS SUMMARY | ~2019-12-06 | XMS | Encounter Summary ---
Demographics + + + | Address | [address] | | | [place] [address] | + + + | Home Phone [...] Providers + +------+ + | Care Floor Representative Name | Role | Phone | + +------+ + | Michael Amanda DO | PCP | | + +------+ + Encounter Details +--------+ + + + + | Date | Type | Department | Care Team | Description | +--------+ + + + + | 07/25/ | Abstract | [facility] [place] [facility] | Michael Amanda, | | | 2013 | | [facility] | DO [address] | | | | | [address] | [place] | | | | | [place] | [address] | | | | | [address] | | | | | | [phone] | | | +--------+ + + + [...] | | | | | [place] [address] | | | | | | [phone] | | | | | | | | +--------+---------+ + + + | 01/01/ | Office | Cardiology | Silvia, | | | 2020 | Visit | | [place] [place] [address] | | | | | | [place], | | | | | | [place] [address] | | | | | | [phone] | | | | | | | | +--------+---------+ + + + documented as of this encounter Visit Diagnoses Not on filedocumented in this encounter"
--- OUTSIDE RECORDS SUMMARY | ~2019-12-06 | XMS | Encounter Summary ---
Demographics + + + | Address | [address] | | | [place] [address] | + + + | Home Phone [...] + + | 01/03/ | Telephone | [facility] | Emmanuel Daniel MD | Results, Pathology | | 2018 | | GASTROENTEROLOGY | [address], [place] | (egd,colon) | | | | [address] [place] | [address] [place], [place] | | | | | [address] [place], [place] | [address] | | | | | [address] | | | | | | [phone] | | | +--------+ + + + [...] | | | | | [place] [address] | | | | | | [phone] | | | | | | | | +--------+---------+ + + + | 01/01/ | Office | Cardiology | Silvia, | | | 2019 | Visit | | PAR[facility] [place] [address] | | | | | | [place] | | | | | | [place] [address] | | | | | | [phone] | | | | | | | | +--------+---------+ + + + documented as of this encounter Visit Diagnoses Not on filedocumented in this encounter"
--- OUTSIDE RECORDS SUMMARY | ~2019-12-06 | XMS | Encounter Summary ---
Demographics + + + | Address | [address] | | | [place] [address] | + + + | Home Phone [...] + +------+ + | Care Battery Assembler Name | Role | Phone | [...] | | | | | [place], | [place], | | | | | [place] [address] | [place] [address] | | | | | [phone] | [phone] | | | | | | | [...] | | | | | [place] [address] | | | | | | [phone] | | | | | | | | +--------+---------+ + + + | 01/01/ | Office | Cardiology | Silvia, | | | 2019 | Visit | | PAR[facility] [place] [address] | | | | | | [place], | | | | | | [place] [address] | | | | | | [phone] | | | | | | | [...]
--- OUTSIDE RECORDS SUMMARY | ~2019-12-06 | XMS | Encounter Summary ---
Demographics + + + | Address | [address] | | | [place] [address] | + + + | Home Phone [...] Providers + +------+ + | Care Highway Maintainer Name | Role | Phone | [...] | MED CTR EXTERNAL | MD [place] [address] | | | | | IMAGING | [place] | | | | | [phone] | [place] [address] | | +--------+ + + + + [...] | | | | | [place] [address] | | | | | | [phone] | | | | | | | | +--------+---------+ + + + | 01/01/ | Office | Cardiology | Silvia, | | | 2020 | Visit | | PAR[facility] [place] [address] | | | | | | [place], | | | | | | [place] [address] | | | | | | [phone] | | | | | | | [...] for comparison only - no result from [facility]. | | + + + + +---------+ + + | Performing | Address | City/State/Zipcode | Phone Number | | Organization | | | | + +---------+ + + | [facility] | | | | + +---------+ + + documented in this encounter Visit Diagnoses Not on filedocumented in this encounter"
--- OUTSIDE RECORDS SUMMARY | ~2019-12-06 | XMS | Encounter Summary ---
Demographics + + + | Address | [address] | | | [place] [address] | + + + | Home Phone [...] Providers + +------+ + | Care Division Traffic Superintendent Name | Role | Phone | + +------+ + | Kirk French MD | PCP | | + +------+ + Encounter Details +--------+ + + + + | Date | Type | Department | Care Team | Description | +--------+ + + + + | 08/10/ | Orders Only | [facility] | Richards, | Mixed hyperlipidemia | | 2016 | | MED CTR LABORATORY | [place] [address] | (Primary Dx) | | | | [address] [place] | [place], | | | | | [place] | [place] [address] | | | | | [address] | [phone] | | | | | [phone] | | | +--------+ + + + [...] | | | | | | [place] [address] | | | | | | [phone] | | | | | | | | +--------+---------+ + + + | 01/01/ | Office | Cardiology | Silvia, | | | 2019 | Visit | | [place] [place] [address] | | | | | | [place], | | | | | | [place] [address] | | | | | | [phone] | | | | | | | [...]
--- OUTSIDE RECORDS SUMMARY | ~2019-12-06 | XMS | Encounter Summary ---
Demographics + + + | Address | [address] | | | [place] [address] | + + + | Home Phone [...] + +------+ + | Care Manager Of Global Name | Role | Phone | + +------+ + PCP | Unavailable | + +------+ + Encounter Details +--------+ + + + + | Date | Type | Department | Care Team | Description | +--------+ + + + + | 09/24/ | [facility] | [facility] | Evan Gandara MD | | | 2005 | Encounter | MED CTR XRAY [address] | [address] [facility] | | | | | [place] | [place] | | | | | [place] [address] | [address] | | | | | [phone] | | | +--------+ + + + [...] | | | | | [place] [address] | | | | | | [phone] | | | | | | | | +--------+---------+ + + + | 01/01/ | Office | Cardiology | Silvia, | | | 2020 | Visit | | [place] [place] [address] | | | | | | [place], | | | | | | [place] [address] | | | | | | [phone] | | | | | | | | +--------+---------+ + + + documented as of this encounter Visit Diagnoses Not on filedocumented in this encounter"
--- OUTSIDE RECORDS SUMMARY | ~2019-12-06 | XMS | Encounter Summary ---
Demographics + + + | Address | [address] | | | [place] [address] | + + + | Home Phone [...] Team Providers + +------+ + | Care Whiteprinting Machine Operator Name | Role | Phone [...] [place] | | | | | [place], [place] | [address] | | | | | [address] | [place] [address] | | | | | [phone] | [phone] | | | | | | | [...] | | | | | | [place] [address] | | | | | | [phone] | | | | | | | | +--------+---------+ + + + | 01/01/ | Office | Cardiology | Silvia, | | | 2019 | Visit | | [place] [place] [address] | | | | | | [place], | | | | | | [place] [address] | | | | | | [phone] | | | | | | | [...]
--- OUTSIDE RECORDS SUMMARY | ~2019-12-06 | XMS | Encounter Summary ---
Demographics + + + | Address | [address] | | | [place] [address] | + + + | Home Phone [...] Providers + +------+ + | Care Orthopedic Nurse Name | Role | Phone | [...] | Refill | [facility] [place] | [place], | Medication Refill | | 2014 | | CARDIOLOGY [address] | [place] [address] | | | | | [place], | [place], | | | | | [place] [address] | [place] [address] | | | | | [phone] | [phone] | | | | | | | [...] | | | | | [place] [address] | | | | | | [phone] | | | | | | | | +--------+---------+ + + + | 01/01/ | Office | Cardiology | [place]via, | | | 2019 | Visit | | [facility] [place] [address] | | | | | | [place], | | | | | | [place] [address] | | | | | | [phone] | | | | | | | | +--------+---------+ + + + documented as of this encounter Visit Diagnoses Not on filedocumented in this encounter"
--- OUTSIDE RECORDS SUMMARY | ~2019-12-06 | XMS | Encounter Summary ---
Demographics + + + | Address | [address] | | | [place] [address] | + + + | Home Phone [...] Team Providers + +------+ + | Care Cantilever Crane Operator Name | Role | Phone | + +------+ + | Kirk French MD | PCP | | + +------+ + Encounter Details +--------+ + + + + | Date | Type | Department | Care Team | Description | +--------+ + + + + | 10/25/ | Hospital | [facility] | Kirk French | Chronic pain | | 2017 | Encounter | MED CTR ULTRASOUND | MD Brea Eva LORA | disorder; Stomach | | | | [address] [place] | [address] | ache; Obesity, | | | | [place], [place] | [place] [address] | unspecified | | | | [address] | [phone] | classification, | | | | [phone] | | unspecified obesity | | | [...] + + +---------+ + + | [place]-3 Fatty | CAPS, one capsule by | [...] | | | | | [place] [address] | | | | | | [phone] | | | | | | | | +--------+---------+ + + + | 01/01/ | Office | Cardiology | Silvia, | | | 2019 | Visit | | [facility] [place] [address] | | | | | | [place], | | | | | | [place] [address] | | | | | | [phone] | | | | | | | [...]
--- OUTSIDE RECORDS SUMMARY | ~2019-12-06 | XMS | Encounter Summary ---
Demographics + + + | Address | [address] | | | [place] [address] | + + + | Home Phone [...] Team Providers + +------+ + | Care Abstract Checker Name | Role | Phone | [...] [address] | | | | | | [place] | (Fax) | | | | | [address] | | | | | | [phone] | | | +--------+ + + + [...] | | | | | [place] [address] | | | | | | [phone] | | | | | | | | +--------+---------+ + + + | 01/01/ | Office | Cardiology | Silvia, | | | 2020 | Visit | | [place] [place] [address] | | | | | | [place], | | | | | | [place] [address] | | | | | | [phone] | | | | | | | | +--------+---------+ + + + documented as of this encounter Visit Diagnoses Not on filedocumented in this encounter"
--- OUTSIDE RECORDS SUMMARY | ~2019-12-06 | XMS | Encounter Summary ---
Demographics + + + | Address | [address] | | | [place] [address] | + + + | Home Phone [...] Providers + +------+ + | Care Auto Slip Cover Installer Name | Role | Phone [...] | 11/26/ | Telephone | [facility] | [place], | Appointment (Needs | | 2017 | | CARDIOLOGY [address] | [place] [address] | rescheduled) | | | | [place], | [place], | | | | | [place] [address] | [place] [address] | | | | | [phone] | [phone] | | | | | | | [...] | | | | | [place] [address] | | | | | | [phone] | | | | | | | | +--------+---------+ + + + | 01/01/ | Office | Cardiology | [place], | | | 2019 | Visit | | [place] [place] [address] | | | | | | [place] | | | | | | [place] [address] | | | | | | [phone] | | | | | | | | +--------+---------+ + + + documented as of this encounter Visit Diagnoses Not on filedocumented in this encounter"
--- OUTSIDE RECORDS SUMMARY | ~2019-12-06 | XMS | Encounter Summary ---
Demographics + + + | Address | [address] | | | [place] [address] | + + + | Home Phone [...] Providers + +------+ + | Care Field Agronomist Name | Role | Phone | + [...] + | 11/02/ | Telephone | [facility] | Daljit Singletary, | Other | | 2015 | | CARDIOLOGY [address] | MD [address] [place] | | | | | [place], | [place], | | | | | [place] [address] | [place] [address] | | | | | [phone] | [phone] | | | | | | | [...] | | | | | [place] [address] | | | | | | [phone] | | | | | | | | +--------+---------+ + + + | 01/01/ | Office | Cardiology | [place]via, | | | 2019 | Visit | | [place] [place] [address] | | | | | | [place], | | | | | | [place] [address] | | | | | | [phone] | | | | | | | | +--------+---------+ + + + documented as of this encounter Visit Diagnoses Not on filedocumented in this encounter"
--- OUTSIDE RECORDS SUMMARY | ~2019-12-06 | XMS | Encounter Summary ---
Demographics + + + | Address | [address] | | | [place] [address] | + + + | Home Phone [...] Team Providers + +------+ + | Care Distributing Clerk Name | Role | Phone | [...] + + | 10/23/ | Office | [facility] | [place], | CAD (coronary artery | | 2013 | Visit | CARDIOLOGY [address] | [place] [address] | disease) (Primary | | | | [place], | [place], | Dx); Other chest | | | | [place] [address] | [place] [address] | pain; Chest pain; | | | | [phone] | [phone] | Coronary artery | | | | [...] Sanchez Date: October 23, 2014 : 1960 Personnel Officer: Kailey Pruitt RN Device Supervisor Speech: Friendster Sense (mV) Impedance (?) Capture (V) Capture (ms) A Lead 2.80-4.00 407 1.500 0.09 RV Lead 22.40-31.36 519 2.000 0.09 LV Lead Battery Impedance (?): 658 Battery Voltage (V): 2.79 NE Interval (ms): 155 AR Interval (ms): 240 VA Conduction: Mode Switch Events: 1 % of time: <0.1 -FOOD TECHNICIAN: <0.1% AP-FOOD TECHNICIAN: <0.1% -VS: 13.8% AP-VS: 86.1% FOOD TECHNICIAN: Magnetic Rate: 85 LINDA: 65 LEAH: [...] Kailey Pruitt RN 10/23/2014 15:22 ames Janeen, COUNTY DEMONSTRATOR - 10/23/2014 2:22 PM PST PATIENT NAME: [...] needed for Chest pain. 25 tablet 12 [place]-3 Fatty Acids (SALMON OIL-1000 PO) CAPS, one [...] He is i n class I-II of [place] [employer] functional class. There are no [...] to go back in 3 days to [place] for an attempt of ablation under general [...] I-II of [place] Heart [employer] functional class. There are n [...] this chart may have been created with Nanalysis voice recognition software. Occasi onal wrong-word or [...] | | | | | [place] [address] | | | | | | [phone] | | | | | | | | +--------+---------+ + + + | 01/01/ | Office | Cardiology | Silvia, | | | 2020 | Visit | | [place] [place] [address] | | | | | | [place], | | | | | | [place] [address] | | | | | | [phone] | | | | | | | [...] 23, 2014 : | | | 1960 Personnel Officer: Kailey Pruitt RN Device Supervisor Speech: | | | Medtronic Sense (mV) Impedance (?) Capture (V) Capture (ms) A | | | Lead 2.80-4.00 407 1.500 0.09 RV Lead 22.40-31.36 519 2.000 0.09 | | | LV Lead Battery Impedance (?): 658 Battery Voltage (V): 2.79 | | | NE Interval (ms): 155 AR Interval (ms): 240 VA Conduction: Mode | | | Switch Events: 1 % of time: <0.1 -FOOD TECHNICIAN: <0.1% AP-FOOD TECHNICIAN: <0.1% -VS: | | | 13.8% AP-VS: 86.1% FOOD TECHNICIAN: Magnetic Rate: 85 LINDA: 65 LEAH: [...] | | Date: October 23, 2014DOB: 1960 Personnel Officer: Jun Saul Supervisor Speech: | | Respitronic Sense (mV) Impedance (?) Capture (V) Capture (ms) A Lead 2.80-4.00 407 1.500 | | 0.09 RV Lead 22.40-31.36 519 2.000 0.09 LV Lead Battery Impedance (?): 658 Battery | | Voltage (V): 2.79 NE Interval (ms): 155 AR Interval (ms): 240 VA Conduction: Mode | | Switch Events: 1 % of time: <0.1 -FOOD TECHNICIAN: <0.1% AP-FOOD TECHNICIAN: <0.1% -VS: 13.8% AP-VS: 86.1% FOOD TECHNICIAN: | | Magnetic Rate: 85 LINDA: [...] of unspecified type | | of vessel, [place] or graft | + + | Other chest pain | + + | Chest pain Chest pain, unspecified | + + | Coronary artery disease Coronary atherosclerosis of unspecified type of vessel, | | [place] or graft | + + | [...]
--- OUTSIDE RECORDS SUMMARY | ~2019-12-06 | XMS | Encounter Summary ---
Demographics + + + | Address | [address] | | | [place] [address] | + + + | Home Phone [...] + + | 11/03/ | Emergency | [facility] | Eliel [place], | Palpitations; | | 2013 - | | MEDICAL CENTER | MD Chiquis JOHNSON | Atypical chest pain | | | | EMERGENCY CENTER | [place] [facility] | | | 11/04/ | | [address] | [address] | | | 2013 | | [place], [place] | | | | | | [address] | | | | | | [phone] | | | +--------+ + + + [...] + + + +---------+ + + | [place]-3 Fatty | CAPS, one capsule by | [...] [address] | | | | | | [place] [address] | | | | | | [phone] | | | | | | | | +--------+---------+ + + + | 01/01/ | Office | Cardiology | Silvia, | | | 2019 | Visit | | [facility] [place] [address] | | | | | | [place], | | | | | | [place] [address] | | | | | | [phone] | | | | | | | [...] CHEST 2 VIEW FRONTAL | | AND NDMFUXH3511/03/2014 11:56 PM History: 54 years. Male. Acute [...] EXTERNAL | | | | performed at [facility];888 | | LAB | | | | [address];[place] | | | | | | [address] | | | | + + + + + -+ | RED CELL | 4.97Comment: Testing | 4.20 - 5.70 | EXTERNAL | | | COUNT | performed at [facility];888 | M/uL | LAB | | | | [address];[place] | | | | | | [address] | | | | + + + + + -+ | Hgb | 16.8Comment: Testing | 13.2 - 17.0 | EXTERNAL | | | | performed at [facility];888 | g/dL | LAB | | | | [address];[place] | | | | | | [address] | | | | + + + + + -+ | Hematocrit, | 48.2Comment: Testing | 39.0 - 50.0 % | EXTERNAL | | | POC | performed at [facility];888 | | LAB | | | | [address];[place] | | | | | | [address] | | | | + + + + + -+ | MCV | 97.1Comment: Testing | 80.0 - 100.0 fl | EXTERNAL | | | | performed at [facility];888 | | LAB | | | | [address];[place] | | | | | | [address] | | | | + + + + + -+ | MCH | 33.9Comment: Testing | 27.0 - 34.0 pg | EXTERNAL | | | | performed at [facility];[address] | | LAB | | | | [address];[place] | | | | | | [address] | | | | + + + + + -+ | MCHC | 34.9Comment: Testing | 32.0 - 35.5 | EXTERNAL | | | | performed at [facility];888 | g/dL | LAB | | | | [address];[place] | | | | | | [address] | | | | + + + + + -+ | RDW-CV | 42.4Comment: Testing | 37 - 53 fl | EXTERNAL | | | | performed at [facility];888 | | LAB | | | | [address];[place] | | | | | | [address] | | | | + + + + + -+ | Platelet | 143 (L)Comment: Testing | 150 - 400 K/uL | EXTERNAL | | | Count | performed at [facility];888 | | LAB | | | Plasma | [address];[place] | | | | | | [address] | | | | + + + + + -+ | MPV | 9.0Comment: Testing | fl | EXTERNAL | | | | performed at [facility];[address] | | LAB | | | | [address];[place] | | | | | | [address] | | | | + + + + + -+ | Differentia | AUTOMATEDComment: | | EXTERNAL | | | l Type | Testing performed at | | LAB | | | | C;[address] | | | [address];[place] [address] | | | | + + + + + -+ | % Segmented | 61.6Comment: Testing | % | EXTERNAL | | | | performed at [facility];888 | | LAB | | | Neutrophils | [address];[place] | | | | | | [address] | | | | + + + + + -+ | % | 27.8Comment: Testing | % | EXTERNAL | | | Lymphocytes | performed at [facility];888 | | LAB | | | | [address];[place] | | | | | | [address] | | | | + + + + + -+ | % Monocytes | 8.7Comment: Testing | % | EXTERNAL | | | | performed at [facility];888 | | LAB | | | | [address];[place] | | | | | | [address] | | | | + + + + + -+ | % | 0.8Comment: Testing | % | EXTERNAL | | | Eosinophils | performed at [facility];888 | | LAB | | | | [address];[place] | | | | | | [address] | | | | + + + + + -+ | % Basophils | 1.1Comment: Testing | % | EXTERNAL | | | | performed at [facility];888 | | LAB | | | | [address];[place] | | | | | | [address] | | | | + + + + + -+ | Absolute | 5.4Comment: Testing | 1.9 - 7.4 K/uL | EXTERNAL | | | Segmented | performed at [facility];888 | | LAB | | | Neutrophils | [address];[place] | | | | | | [address] | | | | + + + + + -+ | Absolute | 2.4Comment: Testing | 1.0 - 3.9 K/uL | EXTERNAL | | | Lymphocytes | performed at [facility];888 | | LAB | | | | [address];[place] | | | | | | [address] | | | | + + + + + -+ | Absolute | 0.8Comment: Testing | 0 - 0.8 K/uL | EXTERNAL | | | Monocytes | performed at [facility];888 | | LAB | | | | [address];[place] | | | | | | [address] | | | | + + + + + -+ | Absolute | 0.1Comment: Testing | 0 - 0.5 K/uL | EXTERNAL | | | Eosinophils | performed at [facility];888 | | LAB | | | | [address];[place] | | | | | | [address] | | | | + + + + + -+ | Absolute | 0.1Comment: Testing | 0 - 0.1 K/uL | EXTERNAL | | | Basophils | performed at [facility];888 | | LAB | | | | [address];[place] | | | | | | [address] | | | | + + + + + -+ | RBC | SLIDE SCANNED, AGREES | | EXTERNAL | | | Morphology | WITH AUTOMATED | | LAB | | | | RESULTS.Comment: Testing | | | | | | performed at [facility];[address] | | | | | | [address];[place] | | | | | | [address] | | | | + + + + + -+ | Na | 140Comment: Testing | 135 - 143 | EXTERNAL | | | | performed at [facility];888 | mmol/L | LAB | | | | [address];[place] | | | | | | [address] | | | | + + + + + -+ | K | 3.9Comment: Testing | 3.5 - 4.9 | EXTERNAL | | | | performed at [facility];888 | mmol/L | LAB | | | | [address];[place] | | | | | | [address] | | | | + + + + + -+ | Cl | 107Comment: Testing | 99 - 109 mmol/L | EXTERNAL | | | | performed at [facility];888 | | LAB | | | | [address];[place] | | | | | | [address] | | | | + + + + + -+ | CO2 | 28Comment: Testing | 23 - 32 mmol/L | EXTERNAL | | | | performed at [facility];888 | | LAB | | | | [address];[place] | | | | | | [address] | | | | + + + + + -+ | Anion Gap | 9Comment: Testing | 5 - 20 mmol/L | EXTERNAL | | | | performed at [facility];888 | | LAB | | | | [address];[place] | | | | | | [address] | | | | + + + + + -+ | Glucose, | 97Comment: Testing | 65 - 99 mg/dL | EXTERNAL | | | Fasting | performed at [facility];[address] | | LAB | | | | [address];[place] | | | | | | [address] | | | | + + + + + -+ | BUN | 14Comment: Testing | 8 - 25 mg/dL | EXTERNAL | | | | performed at [facility];888 | | LAB | | | | [address];[place] | | | | | | [address] | | | | + + + + + -+ | Creatinine | 0.98Comment: Testing | 0.70 - 1.30 | EXTERNAL | | | | performed at [facility];888 | mg/dL | LAB | | | | [address];[place] | | | | | | [address] | | | | + + + + + -+ | BUN/Creatin | 14Comment: Testing | | EXTERNAL | | | ine Ratio | performed at [facility];888 | | LAB | | | | [address];[place] | | | | | | [address] | | | | + + + + + -+ | Calcium | 8.8Comment: Testing | 8.5 - 10.2 | EXTERNAL | | | | performed at [facility];888 | mg/dL | LAB | | | | [address];[place] | | | | | | [address] | | | | + + + + + -+ | Protein, | 6.9Comment: Testing | 6.3 - 8.2 g/dL | EXTERNAL | | | Total | performed at [facility];888 | | LAB | | | | [address];[place] | | | | | | [address] | | | | + + + + + -+ | Albumin | 3.7Comment: Testing | 3.6 - 5.0 g/dL | EXTERNAL | | | | performed at [facility];888 | | LAB | | | | [address];[place] | | | | | | [address] | | | | + + + + + -+ | Globulin | 3.2Comment: Testing | 1.3 - 4.9 g/dL | EXTERNAL | | | | performed at [facility];[address] | | LAB | | | | [address];[place] | | | | | | [address] | | | | + + + + + -+ | A/G Ratio | 1.2Comment: Testing | 1.0 - 2.4 | EXTERNAL | | | | performed at [facility];888 | | LAB | | | | [address];[place] | | | | | | [address] | | | | + + + + + -+ | Bilirubin | 0.9Comment: Testing | 0.1 - 1.5 mg/dL | EXTERNAL | | | Total | performed at [facility];888 | | LAB | | | | [address];[place] | | | | | | [address] | | | | + + + + + -+ | ALP, | 60Comment: Testing | 35 - 115 U/L | EXTERNAL | | | External | performed at [facility];[address] | | LAB | | | | [address];[place] | | | | | | [address] | | | | + + + + + -+ | AST | 22Comment: Testing | 10 - 45 U/L | EXTERNAL | | | | performed at [facility];888 | | LAB | | | | [address];[place] | | | | | | [address] | | | | + + + + + -+ | ALT | 37Comment: Testing | 10 - 65 U/L | EXTERNAL | | | | performed at [facility];888 | | LAB | | | | [address];[place] | | | | | | [address] | | | | + + + [...] | | | | | | at [facility];[address] | [address];[place] [address] | | | | + + + + + -+ | CK, Total | 103Comment: Testing | 55 - 400 U/L | EXTERNAL | | | | performed at [facility];888 | | LAB | | | | [address];[place] | | | | | | [address] | | | | + + + [...] | | | | | performed at [facility];[address] | | | | | | [address];[place] | | | | | | [address] | | | | + + + + + -+ | aPTT, | 26Comment: Testing | 23 - 32 seconds | EXTERNAL | | | Patient | performed at [facility];888 | | LAB | | | | [address];[place] | | | | | | [address] | | | | + + + + + -+ | CK-MB | 2.9Comment: Testing | 0.5 - 3.6 ng/mL | EXTERNAL | | | | performed at [facility];[address] | | LAB | | | | [address];[place] | | | | | | [address] | | | | + + + [...] EXTERNAL | | | | performed at [facility];888 | uIU/mL | LAB | | | | [address];[place] | | | | | | [address] | | | | + + + [...] EXTERNAL | | | | performed at [facility];8 | | LAB | | | | [address];[place], [place] | | | | | | [address] | | | | + + + [...] EXTERNAL | | | | performed at [facility];888 | | LAB | | | | [address];[place] | | | | | | [address] | | | | + + + [...] | | | | | ONLY, -COMPUTER (490), | | | | | | design editor Michelle Butcher | | | | [...]
--- OUTSIDE RECORDS SUMMARY | ~2019-12-06 | XMS | Encounter Summary ---
Demographics + + + | Address | [address] | | | [place] [address] | + + + | Home Phone [...] | CARDIOLOGY [address] | [address] | (Primary Dx); PVC's | | | | [address], | [place], | (premature | | | | [place] [address] | [place] [address] | ventricular | | | | [phone] | [phone] | contractions) | | | | | [...] note, lorraine painting has appointment to see route specialist for PVCs ablations consultation on January [...] tablet Take 1,000 mg by mouth Daily. [place]-3 Fatty Acids (SALMON OIL-1000 PO) CAPS, one [...] tablet Take 1,000 mg by mouth Daily. [place]-3 Fatty Acids (SALMON OIL-1000 PO) CAPS, one [...] | | | | | [place] [address] | | | | | | [phone] | | | | | | | | +--------+---------+ + + + | 01/01/ | Office | Cardiology | [place], | | | 2019 | Visit | | [place] [address] | | | | | | [place] | | | | | | [place] [address] | | | | | | [phone] | | | | | | | [...]
--- OUTSIDE RECORDS SUMMARY | ~2019-12-06 | XMS | Encounter Summary ---
Demographics + + + | Address | [address] | | | [place] [address] | + + + | Home Phone [...] Team Providers + +------+ + | Care Matcher Offbearer Name | Role | Phone | [...] + | 11/26/ | Telephone | [facility] | [place], | Appointment (Needs | | 2017 | | CARDIOLOGY [address] | [place] [address] | rescheduled) | | | | [place], | [place], | | | | | [place] [address] | [place] [address] | | | | | [phone] | [phone] | | | | | | | [...] | | | | | [place] [address] | | | | | | [phone] | | | | | | | | +--------+---------+ + + + | 01/01/ | Office | Cardiology | [place], | | | 2019 | Visit | | [place] [place] [address] | | | | | | [place] | | | | | | [place] [address] | | | | | | [phone] | | | | | | | | +--------+---------+ + + + documented as of this encounter Visit Diagnoses Not on filedocumented in this encounter"
--- OUTSIDE RECORDS SUMMARY | ~2019-12-06 | XMS | Encounter Summary ---
Demographics + + + | Address | [address] | | | [place] [address] | + + + | Home Phone [...] Providers + +------+ + | Care Hand Candle Molder Name | Role | Phone | + +------+ + | Kirk French MD | PCP | | + +------+ + Encounter Details +--------+ + + + + | Date | Type | Department | Care Team | Description | +--------+ + + + + | 01/25/ | Emergency | [facility] | Donald Callahan, | Strain of lumbar | | 2016 | | MEDICAL CENTER | Russ, DO [address] | paraspinal muscle, | | | | EM[facility]Y CENTER | [address] | initial encounter; | | | | [address] | [place], [place] | Left hip pain | | | | [place], [place] | [address] | | | | | [address] | | | | | | [phone] | | | +--------+ + + + [...] + + + +---------+ + + | [place]-3 Fatty | CAPS, one capsule by | [...] [address] | | | | | | [address] | | | | | | [place] [address] | | | | | | [phone] | | | | | | | | +--------+---------+ + + + | 01/01/ | Office | Cardiology | [place], | | | 2019 | Visit | | PAR[facility] [place] [address] | | | | | | [place], | | | | | | [place] [address] | | | | | | [phone] | | | | | | | [...] 07/06/2019 12:12 AM PDT PINA [place]os[place] VICTOR [id number] years MaleXR | | LUMBAR SPINE LIMITED [...]
--- OUTSIDE RECORDS SUMMARY | ~2019-12-06 | XMS | Encounter Summary ---
Demographics + + + | Address | [address] | | | [place] [address] | + + + | Home Phone [...] Team Providers + +------+ + | Care Lithograph Press Operator Name | Role | Phone | + +------+ + PCP | Unavailable | + +------+ + Encounter Details +--------+ + + + + | Date | Type | Department | Care Team | Description | +--------+ + + + + | 04/23/ | Hospital | [facility] | | | | 2007 - | Encounter | [facility] | | | | | | [address] | | | | 04/24/ | | [place] [address] | | | | 2007 | | [phone] | | | +--------+ + + + [...] | | | | | [place] [address] | | | | | | [phone] | | | | | | | | +--------+---------+ + + + | 01/01/ | Office | Cardiology | [place], | | | 2020 | Visit | | [facility] [address] | | | | | | [place], | | | | | | [place] [address] | | | | | | [phone] | | | | | | | | +--------+---------+ + + + documented as of this encounter Visit Diagnoses Not on filedocumented in this encounter"
--- OUTSIDE RECORDS SUMMARY | ~2019-12-06 | XMS | Encounter Summary ---
Demographics + + + | Address | [address] | | | [place] [address] | + + + | Home Phone [...] Team Providers + +------+ + | Care Tumbler Plater Name | Role | Phone | [...] + + | 08/04/ | Telephone | [facility] | [place], | Other (4 week event | | 2017 | | CARDIOLOGY [address] | [address] | monitor ) | | | | [place], | [place], | | | | | [place] [address] | [place] [address] | | | | | [phone] | [phone] | | | | | | | [...] | | | | | [place] [address] | | | | | | [phone] | | | | | | | | +--------+---------+ + + + | 01/01/ | Office | Cardiology | [place], | | | 2019 | Visit | | [facility] [place] [address] | | | | | | [place] | | | | | | [place] [address] | | | | | | [phone] | | | | | | | | +--------+---------+ + + + documented as of this encounter Visit Diagnoses Not on filedocumented in this encounter"
--- OUTSIDE RECORDS SUMMARY | ~2019-12-06 | XMS | Encounter Summary ---
Demographics + + + | Address | [address] | | | [place] [address] | + + + | Home Phone [...] Providers + +------+ + | Care A Operator Name | Role | Phone | [...] + + | 01/05/ | Office | [facility] | [place]via, | Pacemaker - | | 2018 | Visit | CARDIOLOGY [address] | [place] [address] | [employer] - [id number] | | | | [place], | [place], | [employer] - Implanted | | | | [place] [address] | [place] [address] | 06/14/2009 (Primary | | | | [phone] | [phone] | Dx); Chest pain, | | | [...] of non-critical coronary artery d isease involving [place] coronary artery of [place] heart without angina pectoris, essential h [...] pain. He went to the ER in [place] because th e NTG didn't relieved the pain. He was diagnosed with bronchitis. Otherwise he has had no ot her symptoms. He has had a good energy level. He tries to stay active. He has joined a [employer] gym and trying to exercise more [...] by mouth every evening 90 tablet 0 [facility] [place] Natural Products (OSTEO BI-FLEX/5-LOXIN [...] 3RD DOSE, CALL 911 100 tablet 3 Eureka-3 Fatty Acids (SALMON OIL-1000 PO) CAPS, one capsule by mouth daily twice daily ONE TOUCH DELICA LANCETS [facility] Check glucose as needed for hypoglycemia 100 [...] 131 (A) 10/18/2017 I reviewed records from [facility] for office visit on 01/2017 whic [...] overload. 2. Non-critical Coronary artery disease involving [place] coronary a rtery of [place] heart without angina pectoris: A. Normal exercise [...] to go back in 3 days to [place] for an attempt of ablation under general [...] Estimated remaining [facility] longevity is 3.5 years.. 5. Lightheadedness [...] this chart may have been created with [employer] voice recognition software. Occasi onal wrong-word or [...] | | | | | [place] [address] | | | | | | [phone] | | | | | | | | +--------+---------+ + + + | 01/01/ | Office | Cardiology | Silvia, | | | 2020 | Visit | | PARISA [place] [address] | | | | | | [place], | | | | | | [place] [address] | | | | | | [phone] | | | | | | | [...] | | | | | ([facility]) with | | | | | [...] | | | | | ([facility]) | | + +--------+ + + + [...] MD | | | | | | ([id number]) on 01/06/2018 | | | | | [...]
--- OUTSIDE RECORDS SUMMARY | ~2019-12-06 | XMS | Encounter Summary ---
Demographics + + + | Address | [address] | | | [place] [address] | + + + | Home Phone [...] Team Providers + +------+ + | Care Nitrocellulose Maker Name | Role | Phone | + +------+ + PCP | Unavailable | + +------+ + Encounter Details +--------+ + + + + | Date | Type | Department | Care Team | Description | +--------+ + + + + | 10/19/ | Hospital | [facility] | | | | 1992 | Encounter | MED CTR EMERGENCY | | | | | | CENTER [address] | | | | | | [place] | | | | | | [address] | | | | | | [phone] | | | +--------+ + + + [...] | | | | | [place] [address] | | | | | | [phone] | | | | | | | | +--------+---------+ + + + | 01/01/ | Office | Cardiology | Silvia, | | | 2020 | Visit | | PARISA [place] [address] | | | | | | [place], | | | | | | [place] [address] | | | | | | [phone] | | | | | | | | +--------+---------+ + + + documented as of this encounter Visit Diagnoses Not on filedocumented in this encounter"
--- OUTSIDE RECORDS SUMMARY | ~2019-12-06 | XMS | Encounter Summary ---
Demographics + + + | Address | [address] | | | [place] [address] | + + + | Home Phone [...] Providers + +------+ + | Care Project Production Engineer Name | Role | Phone | + +------+ + PCP | Unavailable | + +------+ + Encounter Details +--------+ + + + + | Date | Type | Department | Care Team | Description | +--------+ + + + + | 09/29/ | Hospital | [facility] | | | | 1995 | Encounter | MED CTR EMERGENCY | | | | | | [place] [address] | | | | | | [place] | | | | | | [address] | | | | | | [phone] | | | +--------+ + + + [...] | | | | | [place] [address] | | | | | | [phone] | | | | | | | | +--------+---------+ + + + | 01/01/ | Office | Cardiology | Silvia, | | | 2020 | Visit | | PARISA Vernon [address] | | | | | | [place], | | | | | | [place] [address] | | | | | | [phone] | | | | | | | | +--------+---------+ + + + documented as of this encounter Visit Diagnoses Not on filedocumented in this encounter"
--- OUTSIDE RECORDS SUMMARY | ~2019-12-06 | XMS | Encounter Summary ---
Demographics + + + | Address | [address] | | | [place] [address] | + + + | Home Phone [...] + + + + | 05/02/ | [facility] | [facility] | Jonathan, | | | 2009 | Encounter | MED CTR EMERGENCY | Martell Cr MD [address] | | | | | CENTER [address] [place] | [place] | | | | | [place] | [place] [address] | | | | | [address] | [phone] | | | | | [phone] | | | +--------+ + + + [...] | | | | | [place], [place] [address] | | | | | | [phone] | | | | | | | | +--------+---------+ + + + | 01/01/ | Office | Cardiology | Silvia, | | | 2020 | Visit | | PARISA [place] [address] | | | | | | [place], | | | | | | [place] [address] | | | | | | [phone] | | | | | | | | +--------+---------+ + + + documented as of this encounter Visit Diagnoses Not on filedocumented in this encounter"
--- OUTSIDE RECORDS SUMMARY | ~2019-12-06 | XMS | Encounter Summary ---
Demographics + + + | Address | [address] | | | [place] [address] | + + + | Home Phone [...] Team Providers + +------+ + | Care Elderly Companion Name | Role | Phone | [...] + | 12/23/ | Telephone | [facility] | Silvia, | Lab Order (due for | | 2017 | | CARDIOLOGY [address] | Janeen, ROAD MANAGER [address] | fasting labs) | | | | [place], | [place], | | | | | [place] [address] | [place] [address] | | | | | [phone] | | | | | | | [...] | | | | | [place] [address] | | | | | | [phone] | | | | | | | | +--------+---------+ + + + | 01/01/ | Office | Cardiology | Silvia, | | | 2019 | Visit | | PARISA [place] [address] | | | | | | [place] | | | | | | [place] [address] | | | | | | [phone] | | | | | | | | +--------+---------+ + + + documented as of this encounter Visit Diagnoses Not on filedocumented in this encounter"
--- OUTSIDE RECORDS SUMMARY | ~2019-12-06 | XMS | Encounter Summary ---
Demographics + + + | Address | [address] | | | [place] [address] | + + + | Home Phone [...] Providers + +------+ + | Care Machinist First Class Name | Role | Phone | [...] 2019 | | GASTROENTEROLOGY | [address], [place] | | | | | [address] [place] | [address] [place], [place] | | | | | [address] [place], [place] | [address] | | | | | [address] | | | | | | [phone] | | | +--------+ + + + [...] | | | | | [place] [address] | | | | | | [phone] | | | | | | | | +--------+---------+ + + + | 01/01/ | Office | Cardiology | Silvia, | | | 2019 | Visit | | PARISA [place] [address] | | | | | | [place] | | | | | | [place] [address] | | | | | | [phone] | | | | | | | | +--------+---------+ + + + documented as of this encounter Visit Diagnoses Not on filedocumented in this encounter"
--- OUTSIDE RECORDS SUMMARY | ~2019-12-06 | XMS | Encounter Summary ---
Demographics + + + | Address | [address] | | | [place] [address] | + + + | Home Phone [...] Team Providers + +------+ + | Care Admin Prog Coord Name | Role | Phone | + [...] | Palpitations | [address] | | | | | Procedures | [address] | [address] [place] | | | | | ECHO | [place], | [place], [place] | | | | | Complete | [place] [address] | [address] | | | | | | Phone: | Phone: | | | | | | [phone] | [phone] | | | | | | Fax: | Fax: | | | | | | [phone] | [phone] | +--------+--------+ + + + + Encounter Details +--------+ + + + + | Date | Type | Department | Care Team | Description | +--------+ + + + + | 12/30/ | Hospital | [facility] | TimmyshaistateshaShaistatimmy, | Palpitations | | 2012 - | Encounter | MED CTR XRAY [address] | MD [address] | | | | | [place] | [address], | | | 01/01/ | | [place] [address] | [place] [address] | | | 2012 | | [phone] | | | | | | | [...] + + + +---------+ + + | Jal-3 Fatty | CAPS, one capsule by | [...] | | | | | | [place] [address] | | | | | | [phone] | | | | | | | | +--------+---------+ + + + | 01/01/ | Office | Cardiology | Silvia, | | | 2020 | Visit | | PAR[place] [address] | | | | | | [place], | | | | | | [place] [address] | | | | | | [phone] | | | | | | | [...] At | + + + | [facility] | [place] | | Department [address] [facility], [place] | [facility] | | [ rep [address]] [ rep [facility] | | st zip] Signed | - IMAGING | | | | | Patient Name: MOE GAY | | | Physician: MIGUELINA : 1960 Age: 52 Sex: M Unit | | | #: [id number] Exam Date: 12/30/12 Location: | | | IMG Report #: [id number] Page: | | | %(RAD)RES..mtdd.print.filter("pg") of %(RAD) | | | RES..mtdd.print.filter("tpg") | | | | | | Accession Number: [id number] | | | E C H O C A R D I O G R A P H Y R E P O R T | | | HEIGHT: 76" WEIGHT: 270# | | | BUFFING WHEEL FORMER AUTOMATIC: JAMEEL REFERRING DR: TIMMY DRAKE DR: | [...] | | | Transcribed Date/Time: 12/30/2012 16:34 Inspector Outside [employer] Distribution: | | | <<Signature on File>> | | | Suwong | | | MD CLEOPATRA Singletary FASNanette01/02/13 0955 <Electronically signed by | | | Daljit Singletary MD, [facility]ITALSharee, FACP, FASE, FASNC> Daljit | | | MD CLEOPATRA Singletary 12/30/12 1608 Inspector Outside Steam Distribution: [employer] | | | Lkhxbskrshhlc17/08/13 8397 Daljit Singletary MD FACC | | | FASE | | + + + + + + + + | Performing | Address | City/State/Zipcode | Phone Number | | Organization | | | | + + + + + | [facility] | [address] | [place] | [phone] | | [facility] | | [address] | | | - IMAGING | | | | + + + + + documented in this encounter Visit Diagnoses + + | Diagnosis | + + | Palpitations | + + documented in this encounter
--- OUTSIDE RECORDS SUMMARY | ~2019-12-06 | XMS | Encounter Summary ---
Demographics + + + | Address | [address] | | | [place] [address] | + + + | Home Phone [...] Providers + +------+ + | Care Lease Purchase Driver Name | Role | Phone | [...] + + | 08/31/ | Refill | [facility] | Kirk French | Medication Refill | | 2018 | | [facility] | MD Brea [address] | | | | | PRIMARY CARE [address] | | | | | [address] | [place] [address] | | | | | [place], [place] | [phone] | | | | | [address] | | | | | | [phone] | | | +--------+--------+ + + + [...] | | | | | [place] [address] | | | | | | [phone] | | | | | | | | +--------+---------+ + + + | 01/01/ | Office | Cardiology | [place], | | | 2019 | Visit | | [place] [address] | | | | | | [place] | | | | | | [place] [address] | | | | | | [phone] | | | | | | | | +--------+---------+ + + + documented as of this encounter Visit Diagnoses Not on filedocumented in this encounter"
--- OUTSIDE RECORDS SUMMARY | ~2019-12-06 | XMS | Encounter Summary ---
Demographics + + + | Address | [address] | | | [place] [address] | + + + | Home Phone [...] Providers + +------+ + | Care Mechanical Repair Worker Name | Role | Phone [...] | | | | CENTER [address] | [place], [place] | (Primary Dx) | | | | [place], [place] | [address] | | | | | [address] | | | | | | [phone] | | | +--------+ + + + [...] + + + +---------+ + + | Kirkman-3 Fatty | CAPS, one capsule by | [...] | | | | | [place] [address] | | | | | | [phone] | | | | | | | | +--------+---------+ + + + | 01/01/ | Office | Cardiology | [place], | | | 2019 | Visit | | PARISA [place] [address] | | | | | | [place], | | | | | | [place] [address] | | | | | | [phone] | | | | | | | [...] | [facility] | | | BRITISH | RATE,ESTIMATED | | MEDICAL | | | | mL/min/1.99g6Vzlt than | | CENTER - | | [...] | [address] | [place] | [phone] | | [facility] | | [address] | | | - LABORATORY | | [...] | | | | ANGELA MARADIAGA MD ([id number]) | | | | | | on [...] | | | | | [employer] | | | | | [...] ST. | [address] | [place] | [phone] | | [facility] | | [address] | | | [...] | [address] | [place], [place] | [phone] | | [facility] | | [address] | | | - LABORATORY | | [...]
--- OUTSIDE RECORDS SUMMARY | ~2019-12-06 | XMS | Encounter Summary ---
Demographics + + + | Address | [address] | | | [place] [address] | + + + | Home Phone [...] Providers + +------+ + | Care Pediatric Cardiologist Name | Role | Phone | + [...] 2019 | | GASTROENTEROLOGY | [address], [place] | | | | | [address] [place] | [address] [place], [place] | | | | | [address] [place], [place] | [address] | | | | | [address] | | | | | | [phone] | | | +--------+ + + + [...] | | | | | [place] [address] | | | | | | [phone] | | | | | | | | +--------+---------+ + + + | 01/01/ | Office | Cardiology | [place], | | | 2019 | Visit | | PARISA [place] [address] | | | | | | [place], | | | | | | [place] [address] | | | | | | [phone] | | | | | | | | +--------+---------+ + + + documented as of this encounter Visit Diagnoses Not on filedocumented in this encounter"
--- OUTSIDE RECORDS SUMMARY | ~2019-12-06 | XMS | Encounter Summary ---
Demographics + + + | Address | [address] | | | [place] [address] | + + + | Home Phone [...] Providers + +------+ + | Care Senior Catering Sales Manager Name | Role | Phone | + +------+ + | Kirk French MD | PCP | | + +------+ + Encounter Details +--------+ + + + + | Date | Type | Department | Care Team | Description | +--------+ + + + + | 12/24/ | Orders Only | [facility] | Conversion | | | 2018 | | [facility] | Transaction, | | | | | PRIMARY CARE [address] | Provider Unknown | | | | | [address] | [phone] | | | | | [place] | | | | | | [address] | | | | | | [phone] | | | +--------+ + + + [...] | Gastroenterology | Darin Gandih | | 2019 | Visit | | MD Jacek [address] | | | | | | [address] | | | | | | [place] [address] | | | | | | [phone] | | | | | | | | +--------+---------+ + + + | 01/01/ | Office | Cardiology | [place]via, | | | 2019 | Visit | | PARISA [address] | | | | | | [place], | | | | | | [place] [address] | | | | | | [phone] | | | | | | | [...] LAB | | [facility] | | + + + [...]
--- OUTSIDE RECORDS SUMMARY | ~2019-12-06 | XMS | Encounter Summary ---
Demographics + + + | Address | [address] | | | [place] [address] | + + + | Home Phone [...] Providers + +------+ + | Care Brand Representative Name | Role | Phone | [...] + | 02/01/ | Telephone | [facility] | [place]via, | Other (unable to | | 2013 | | CARDIOLOGY [address] | [place] [address] | take the isosorbide) | | | | [place], | [place], | | | | | [place] [address] | [place] [address] | | | | | [phone] | | | | | | | [...] | | | | | [place] [address] | | | | | | [phone] | | | | | | | | +--------+---------+ + + + | 01/01/ | Office | Cardiology | [place]via, | | | 2019 | Visit | | PARISA [place] [address] | | | | | | [place], | | | | | | [place] [address] | | | | | | [phone] | | | | | | | | +--------+---------+ + + + documented as of this encounter Visit Diagnoses + + | Diagnosis | + + | Coronary artery disease - Primary Coronary atherosclerosis of unspecified type of | | vessel, [place] or graft | + + | Hypertension Unspecified essential hypertension | + + | Hyperlipidemia Other and unspecified hyperlipidemia | + + documented in this encounter"
--- OUTSIDE RECORDS SUMMARY | ~2019-12-06 | XMS | Encounter Summary ---
Demographics + + + | Address | [address] | | | [place] [address] | + + + | Home Phone [...] + + | 05/24/ | Hospital | [facility] | Chi Fang | Unspecified Chest | | 2008 - | Encounter | MEDICAL CENTER | MD Kelsey [address] | Pain | | | | CLINICAL DECISION | [place] | | | 05/25/ | | [address] | [address] | | | 2008 | | [place], [place] | [phone] | | | | | [address] | | | | | | [phone] | | | +--------+ + + + [...] | | | | | [place] [address] | | | | | | [phone] | | | | | | | | +--------+---------+ + + + | 01/01/ | Office | Cardiology | Silvia, | | | 2019 | Visit | | PARISA [address] | | | | | | [place], | | | | | | [place] [address] | | | | | | [phone] | | | | | | | [...] Performed At | + + + | [id number] | | | Page 1 RADIOLOGY | | | [facility] [address]/ | | | [facility] | | | CENTER NAME: [place] [address] | | | | | | | | | DATE OF : 1960 ORDER NUMBER: | | | [id number] EXAM DATE/TIME: 05/25/2009 08:00 A ORDERING PHYSICIAN: [...] | | administration of 14.9 mCi of ifegaxpfbs-80n-tepkujz Myoview. Stress | | | images postinjection [...] | | | images. 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 | | [...] | A | | P | | TSG/[id number]/ | | cc: ANGELA MARADIAGA MD | | FEMI MARIE MD | | CHI FANG MD | | AMY BANEGAS DO | + + ECHO Complete (05/25/2009 7:50 AM PDT) + + | Specimen | + + | | + + + + + | Narrative | Performed At | + + + | [id number] | | | Page 1 ECHO [facility] NAME: | | | [place] [address] MEDICAL RECORD #: | | | [id number] | | | DATE OF : 1960 ORDER | | | NUMBER: [id number] EXAM DATE/TIME: 05/25/2009 07:34 PERFORMING | | [...] Excursion: | | | 1.89 cm E-F Newberry: 0.08 m/s HR: 43.51 BPM AV maxP.11 [...] | | | 0.33 m/s TV Dec Newberry: 1.73 m/s2 TV Dec Time: 344.24 ms TV | | | E Bravo: 0.59 m/s TV E/A Ratio: 1.80 TV maxP.40 mmHg TV | | | meanP.44 mmHg TV Vmax: 0.59 m/s TV Vmean: 0.30 m/s TV | | | VTI: 22.88 cm Technical Instructor: ANTHONY Authenticated by: Edwardo Tee | | | Carlos WINKLER Report Date/Time: 05-25-2009 10:19:52 | | + + + + + | Procedure Note | + + | Kalpesh Brown - 07/17/2019 2:13 AM PDT [id number] | | Page [address] [place] [address] NAME: [place], [place] | | [address] : ACCOUNT #: | | [id number]: DATE OF : 1960ORDER NUMBER: | | [id number] DATE/TIME: 05/25/2009 07:34PERFORMING PHYSICIAN: Edwardo Gonzalez | [...] mlLAESV Index (A-L): 26.03 ml/m2LAAs A2C: 14.93 [id number] A-L | | A2C: 44.50 mlLALs A2C: 4.25 cmLAAs A4C: 18.42 sa3NVZBL A-L A4C: 55.79 mlLALs | | A4C: 5.16 cmAo Diam: 3.91 cmAV Cusp: 2.23 cmLA Diam: 3.79 cmLA/Ao: 0.96%FS: | | 43.37 %EDV(Teich): 146.19 mlEF(Teich): 73.99 %ESV(Teich): 38.01 mlIVSd: 1.57 | | cmIVSs: 1.79 cmLVIDd: 5.48 cmLVIDs: 3.10 cmLVPWd: 1.32 cmLVPWs: 1.79 | | cmSV(Teich): 108.18 mlD-E Excursion: 1.89 cmE-F Newberry: 0.08 m/sHR: 43.51 BPMAV | | maxP.11 mmHgAV meanP.33 mmHgAV Vmax: 1.74 m/Zabrina Vmean: 1.06 m/Zabrina VTI: | | 35.51 cmAVA Vmax: 2.77 cm2AVA (VTI): 2.54 pm7GQHG Dopp: 3.00 l/cfdb7HMAS Dopp: | | 6.33 l/minHR: 70.25 BPMLVOT maxP.78 mmHgLVOT meanP.02 mmHgLVSI Dopp: | | 42.76 ml/m2LVSV Dopp: 90.23 mlLVOT Vmax: 1.30 m/sLVOT Vmean: 0.80 m/sLVOT VTI: | | 24.35 cmMV A Bravo: 0.70 m/sMV DecT: 242.46 msMV E Bravo: 0.91 m/sMV E/A Ratio: | | 1.31MV maxP.40 mmHgMV meanP.82 mmHgMV Vmax: 0.92 m/sMV Vmean: 0.37 m/sMV | | VTI: 26.47 cmMVA (VTI): 3.40 dx5Usqjgt e': 0.08 m/sSeptal E/e': 11.24HR: | | 60.55 BPMPV maxP.04 mmHgPV meanP.39 mmHgPV Vmax: 0.87 m/sPV Vmean: 0.55 | | m/sPV VTI: 19.09 cmRAP: 5 mmHgRVSP: 21.72 mmHgTR maxP.72 mmHgTR Vmax: | | 2.04 m/sTV A Bravo: 0.33 m/sTV Dec Newberry: 1.73 m/s2TV Dec Time: 344.24 msTV E Bravo: | | 0.59 m/sTV E/A Ratio: 1.80TV maxP.40 mmHgTV meanP.44 mmHgTV Vmax: 0.59 | | m/sTV Vmean: 0.30 m/sTV VTI: 22.88 cm Technical Instructor: EMERYuthenticated by: Edwardo Tee | | Carlos [...] | |D-E Excursion: 1.89 cm | |E-F Newberry: 0.08 m/s | |HR: 43.51 BPM | [...] A Bravo: 0.33 m/s | |TV Dec Newberry: 1.73 m/s2 | |TV Dec Time: 344.24 ms | |TV E Bravo: 0.59 m/s | |TV E/A Ratio: 1.80 | |TV maxP.40 mmHg | |TV meanP.44 mmHg | |TV Vmax: 0.59 m/s | |TV Vmean: 0.30 m/s | |TV VTI: 22.88 cm | | | |Technical Instructor: KVW | |Authenticated by: Edwardo Gonzalez MD | |Report Date/Time: 05-25-2009 10:19:52 | + + CT Head wo Contrast (05/24/2009 12:58 PM PDT) + + | Specimen | + + | | + + + + + | Narrative | Performed At | + + + | [id number] | | | Page 1 RADIOLOGY | | | CDU 21937/ | | | [facility] | | | CENTER NAME: [place] [address] | | | | | | | | | DATE OF : 1960 ORDER NUMBER: | | | [id number] EXAM DATE/TIME: 05/24/2009 12:47 P ORDERING PHYSICIAN: [...] | | asymmetrically dense vessel about the [place] of [place]. No | | | hydrocephalus. [...] 08:45 P P P | | | [facility]/tp/[id number]/ cc: MD ANGELA AVENDAÑO MD | | | MD AMY HAM DO | | + + + + + | Procedure Note | + + | Kevin, Rad Conversion - 07/17/2019 2:13 AM PDT | | [id number] Page 1 | | RADIOLOGY CDU 73029/ | | OPO | | [facility] NAME: P[place]AY | | [place] [address] | | | | DATE OF : 1960 | | | | ORDER NUMBER: [id number] | | EXAM DATE/TIME: 05/24/2009 12:47 P [...] is no asymmetrically dense vessel about the [place]. No | | hydrocephalus. Some [...] | P | | P | | [facility]//[id number]/ | | cc: VINAY HILL MD | | ANGELA MARADIAGA MD | | FEMI MARIE MD | | AMY P BASSAM, DO | + + XR Chest 2 Vws (05/24/2009 11:31 AM PDT) + + | Specimen | + + | | + + + + + | Narrative | Performed At | + + + | [id number] | | | Page 1 RADIOLOGY | | | [facility] [address]/ | | | [facility] | | | CENTER NAME: [place] [address] | | | | | | | | | DATE OF : 1960 ORDER NUMBER: | | | [id number] EXAM DATE/TIME: 05/24/2009 11:19 A ORDERING PHYSICIAN: [...] DT: | | | 05/24/2009 05:38 P [facility]/cf/[id number]/ cc: VINAY HILL MD | | | MD FEMI FOSS MD JOSEPH | | | P DO BASSAM | | + + + + + | Procedure Note | + + | Kalpesh Brown Conversion - 07/17/2019 2:13 AM PDT | | [id number] Page 1 | | RADIOLOGY CDU 01567/ | | OPO | | [facility] NAME: PINA GAY | | [place] [address] | | | | DATE OF : 1960 | | | | ORDER NUMBER: [id number] | | EXAM DATE/TIME: 05/24/2009 11:19 A [...] | P | | P | | [facility]//[id number]/ | | cc: VINAY HILL MD | | ANGELA MARADIAGA MD | | EFMI MARIE MD | | AMY BANEGAS DO | + + documented in this encounter Visit Diagnoses + + | Diagnosis | + + | Chest pain, unspecified | + + documented in this encounter"
--- OUTSIDE RECORDS SUMMARY | ~2019-12-06 | XMS | Encounter Summary ---
Demographics + + + | Address | [address] | | | [place] [address] | + + + | Home Phone [...] Providers + +------+ + | Care Hand Edger Name | Role | Phone | [...] 2019 | | GASTROENTEROLOGY | [address] [place], [place] | | | | | [address] [place] | [address] [place], [place] | | | | | [address] [place], [place] | [address] | | | | | [address] | | | | | | [phone] | | | +--------+ + + + [...] | | | | | [place] [address] | | | | | | [phone] | | | | | | | | +--------+---------+ + + + | 01/01/ | Office | Cardiology | [place], | | | 2019 | Visit | | PARISA [place] [address] | | | | | | [place], | | | | | | [place] [address] | | | | | | [phone] | | | | | | | | +--------+---------+ + + + documented as of this encounter Visit Diagnoses Not on filedocumented in this encounter"
--- OUTSIDE RECORDS SUMMARY | ~2019-12-06 | XMS | Encounter Summary ---
Demographics + + + | Address | [address] | | | [place] [address] | + + + | Home Phone [...] Providers + +------+ + | Care Bass Singer Name | Role | Phone | + [...] | SLEEP DISORDER 401 | [address] | Dx) | | | | [address] [place] | [place] | | | | | [place] [address] | [address] | | | | | [phone] | | | +--------+---------+ + + + [...] pillows obtained from: [facility] [place] pressure is: 13 cm CPAP download shows [...] to go to [facility] [place] to have them download his memory card. I will readjust his pressure, if necessary. I will call him with the results. He is to work toward wearing his CPAP 100% of the time he is asleep. I will follow up again in 1 month, sooner prn. Fifteen minutes were spent [id number], wi th the majority of time spent [...] | | | | | [place] [address] | | | | | | [phone] | | | | | | | | +--------+---------+ + + + | 01/01/ | Office | Cardiology | Silvia, | | | 2019 | Visit | | PARISA [place] [address] | | | | | | [place], | | | | | | [place] [address] | | | | | | [phone] | | | | | | | | +--------+---------+ + + + documented as of this encounter Visit Diagnoses + + | Diagnosis | + + | DIDIER on CPAP - Primary Obstructive sleep apnea (adult) (pediatric) | + + documented in this encounter
--- OUTSIDE RECORDS SUMMARY | ~2019-12-06 | XMS | Encounter Summary ---
Demographics + + + | Address | [address] | | | [place] [address] | + + + | Home Phone [...] Providers + +------+ + | Care General Internal Medicine Doctor Name | Role | Phone | [...] | RN | | | | | [place], | | | | | | [place] [address] | | | | | | [phone] | | | +--------+ + + + [...] | | | | | [place] [address] | | | | | | [phone] | | | | | | | | +--------+---------+ + + + | 01/01/ | Office | Cardiology | [place], | | | 2020 | Visit | | PARISA [place] [address] | | | | | | [place], | | | | | | [place] [address] | | | | | | [phone] | | | | | | | | +--------+---------+ + + + documented as of this encounter Visit Diagnoses Not on filedocumented in this encounter"
--- OUTSIDE RECORDS SUMMARY | ~2019-12-06 | XMS | Encounter Summary ---
Demographics + + + | Address | [address] | | | [place] [address] | + + + | Home Phone [...] Providers + +------+ + | Care Farmworker Fryer Farm Name | Role | Phone | [...] + + | 05/26/ | Emergency | JACKOKNanette GUTIERREZ MICHELLE | Lizbeth Green | Atypical chest pain | | 2013 | | [facility] | DO Nicole Fink | (Primary Dx); | | | | CENTER [address] | [place], [place] | Anxiety | | | | [place], [place] | [address] | | | | | [address] | | | | | | [phone] | | | +--------+ + + + [...] + + + +---------+ + + | [place]-3 Fatty | CAPS, one capsule by [...] | | | | | | [place] [address] | | | | | | [phone] | | | | | | | | +--------+---------+ + + + | 01/01/ | Office | Cardiology | [place], | | | 2019 | Visit | | PARISA [place] [address] | | | | | | [place], | | | | | | [place] [address] | | | | | | [phone] | | | | | | | [...] the uneventful IV administration of 80 mL [id number] contrast. Timing of | | contrast bolus [...] and Signed by: Kenneth | | MD Eilud Electronically signed: 05/27/2014 3:06 PM | | [...] + | MISCELLANEOUS LAB | | | [phone] | + +---------+ + + | MISCELANIOUS LAB | | | [phone] | + +---------+ + + Troponin I [...] + | [facility] | [address] | [place] | [phone] | | [facility] | | [address] | | | - LABORATORY | | | | + + + + + | [facility] | [address] | [place] | | | [facility] | | [address] | | | - LABORATORY | | [...] | 0.89 | 0.60 - 1.30 | [facility] | | | | | mg/dL | [facility] | | | | | | MEDICAL | | | | | | CENTER - | | | | | | LABORATORY | | + + + + + + | eGFR if not | >60Comment: GLOMERULAR | >=60 | [facility] | | | | FILTRATION | mL/min/1.73m2 | [facility] | | | [place] CITIZEN | RATE,ESTIMATED | | MEDICAL | | | | mL/min/1.02t8Sada than | | CENTER - | | [...] + | [facility] | [address] | [place] | [phone] | | [facility] | | [address] | | | - LABORATORY | | | | + + + + + | [facility] | [address] | [place] | | | [facility] | | [address] | | | - LABORATORY | | [...] + | [facility] | [address] | [place] | [phone] | | [facility] | | [address] | | | - LABORATORY | | | | + + + + + | [facility] | [address] | [place], [place] | | | [facility] | | [address] | | | - LABORATORY | | [...]
--- OUTSIDE RECORDS SUMMARY | ~2019-12-06 | XMS | Encounter Summary ---
Demographics + + + | Address | [address] | | | [place] [address] | + + + | Home Phone [...] Team Providers + +------+ + | Care Religious Education Coordinator Name | Role | Phone | [...] | Telephone | [facility] [place] | [facility], | LABS | | 2019 | | CARDIOLOGY [address] | Janeen FOOD PREP WORKER [address] | | | | | [place], | [place], | | | | | [place] [address] | [place] [address] | | | | | [phone] | [phone] | | | | | | | [...] | | | | | [place] [address] | | | | | | [phone] | | | | | | | | +--------+---------+ + + + | 01/01/ | Office | Cardiology | [place], | | | 2019 | Visit | | PARISA [place] [address] | | | | | | [place] | | | | | | [place] [address] | | | | | | [phone] | | | | | | | [...]
--- OUTSIDE RECORDS SUMMARY | ~2019-12-06 | XMS | Encounter Summary ---
Demographics + + + | Address | [address] | | | [place] [address] | + + + | Home Phone [...] | [facility] | [facility] | Arthur Page MD | | | 2007 - | Encounter | MED CTR MED ONC | [address] [facility] | | | | | [address] [place] | [place] | | | 06/25/ | | [place] [address] | [address] | | | 2007 | | [phone] | | | +--------+ + + + [...] | | | | | [place] [address] | | | | | | [phone] | | | | | | | | +--------+---------+ + + + | 01/01/ | Office | Cardiology | [place], | | | 2020 | Visit | | PARISA [place] [address] | | | | | | [place], | | | | | | [place] [address] | | | | | | [phone] | | | | | | | | +--------+---------+ + + + documented as of this encounter Visit Diagnoses Not on filedocumented in this encounter"
--- OUTSIDE RECORDS SUMMARY | ~2019-12-06 | XMS | Encounter Summary ---
Demographics + + + | Address | [address] | | | [place] [address] | + + + | Home Phone [...] + +------+ + | Care Property Management Accountant Name | Role | Phone [...] W | Dx) | | | | [facility] [address] | [address] [place] | | | | | [place], [place] | [place] [address] | | | | | [address] | [phone] | | | | | [phone] | | | +--------+ + + + [...] + + + +---------+ + + | [place]-3 Fatty | CAPS, one capsule by | [...] | | | | | [place] [address] | | | | | | [phone] | | | | | | | | +--------+---------+ + + + | 01/01/ | Office | Cardiology | [place], | | | 2019 | Visit | | PARISA [place] [address] | | | | | | [place] | | | | | | [place] [address] | | | | | | [phone] | | | | | | | [...] W?MRN: | | | | | | [id number] | | | [id number] | | | his | | | [...] | | | ent/60 | | | [id number] | | | -5586- | | | [...] | | | St. | | | [place] | | | y H. | [...] | | | St. | | | [place] | | | y H. | [...] | | | St. | | | [place] | | | y H. | [...] | | | St. | | | [place] | | | y H. | [...] | | | St. | | | [place] | | | y | | [...] | | | ext. | | | [phone] | | | or go | | [...] | [address] | [place] | [phone] | | [facility] | | [address] | | | - LABORATORY | | [...] [address] | [place] | [phone] | | [facility] | | [address] | | | - LABORATORY | | [...] | 0.82 | 0.60 - 1.30 | [facility] | | | | | mg/dL | [facility] | | | | | | MEDICAL | | | | | | CENTER - | | | | | | LABORATORY | | + + + + + + | eGFR if not | >60Comment: GLOMERULAR | >=60 | [facility] | | | | FILTRATION | mL/min/1.73m2 | [facility] | | | [place] | RATE,ESTIMATED | | MEDICAL | | | | mL/min/1.11f5Rdkk than | | CENTER - | | [...] [address] | [place] | [phone] | | [facility] | | [address] | | | - LABORATORY | | [...] | Eosinophils | | K/uL | [facility] | [...] [address] | [place] | [phone] | | [facility] | | [address] | | | - LABORATORY | | | | + + + + + documented in this encounter Visit Diagnoses + + | Diagnosis | + + | Bronchitis - Primary Bronchitis, not specified as acute or chronic | + + documented in this encounter"
--- OUTSIDE RECORDS SUMMARY | ~2019-12-06 | XMS | Encounter Summary ---
Demographics + + + | Address | [address] | | | [place] [address] | + + + | Home Phone [...] Providers + +------+ + | Care Rn Lpn Lvn Name | Role | Phone | + [...] | Palpitations | [address] | | | | | Procedures | [address] | [address] [place] | | | | | ECHO | [place], | [place], [place] | | | | | Complete | [place] [address] | [address] | | | | | | Phone: | Phone: | | | | | | [phone] | [phone] | | | | | | Fax: | Fax: | | | | | | [phone] | [phone] | +--------+--------+ + + + + Reason [...] | [facility] | Daljit Singletary, | Palpitations | | 2012 | Visit | CARDIOLOGY [address] | [address] | (Primary Dx); PVC | | | | [address] [place], | [place], | (premature | | | | [place] [address] | [place] [address] | ventricular | | | | [phone] | [phone] | contraction) | | | | | [...] documented in this encounter Progress Notes Geri Angle ARNP - 12/21/2012 11:43 AM PSTFormatting of [...] [facility] in [place], [place]. Today, patient is apprehensive of the [...] tablet Take 1,000 mg by mouth Daily. [place]-3 Fatty Acids (SALMON OIL-1000 PO) CAPS, one [...] tablet Take 1,000 mg by mouth Daily. [place]-3 Fatty Acids (SALMON OIL-1000 PO) CAPS, one [...] Gay Date: December 21, 2012 : 1960 Wildlife Veterinarian: PARISA Velazquez Device General Repairer: [employer] Sense (mV) Impedance (?) Capture (V) Capture (ms) A Lead 4-5.6 423 1.5 0.09 RV Lead >31.36 539 2.0 0.09 LV Lead Battery Impedance (?): 301 Battery Voltage (V): 2.8 MT Interval (ms): 140 AR Interval (ms): 210 VA Conduction: Mode Switch Events: N/A % of time: -MECHANICAL ENGINEERING LECTURER: 0.6 AP-MECHANICAL ENGINEERING LECTURER: 1.3 -VS: 23.9 AP-VS: 74.2 MECHANICAL ENGINEERING LECTURER: Magnetic Rate: 85 LINDA: 65 LEAH: Current [...] [facility] in [place], [place]. EKG showed normal sinus rhythm with [...] I will d iscuss this option with airborne sensor specialist in [place]. 7. Followup in 2-4 weeks. Portions of this report were transcribed using voice recognition software. Every effort wa s made to ensure accuracy; however, inadvertent computerized agent spa desk errors may be pre sent. documented in [...] | | | | | [place] [address] | | | | | | [phone] | | | | | | | | +--------+---------+ + + + | 01/01/ | Office | Cardiology | [place], | | | 2020 | Visit | | PARISA [place] [address] | | | | | | [place], | | | | | | [place] [address] | | | | | | [phone] | | | | | | | | +--------+---------+ + + + documented as of this encounter Results ECHO Complete (12/30/2012 4:08 PM PST) + + | Specimen | + + | | + + + + + | Narrative | Performed At | + + + | [facility] | [place] | | Department [address], [place] | [facility] | | [ rep ct [address]] [ rep ct [facility] | [facility] | | st zip] Signed | - IMAGING | | | | | Patient Name: MOE GAY W | | | Physician: MIGUELINA : 1960 Age: 52 Sex: M Unit | | | #: [id number] Exam Date: 12/30/12 Location: | | | IMG Report #: [id number] Page: | | | %(RAD)RES..mtdd.print.filter("pg") of %(RAD) | | | RES..mtdd.print.filter("tpg") | | | | | | Accession Number: [id number] | | | E C H O C A R D I O G R A P H Y R E P O R T | | | HEIGHT: 76" WEIGHT: 270# | | | BARREL ROLLER OPERATOR: JAMEEL REFERRING DR: TIMMY DRAKE DR: [...] | | | Transcribed Date/Time: 12/30/2012 16:34 Hr Representative: | | | <<Signature on File>> | | | Daljit | | | MD ROSEMARY Singletary FASE01/02/13 0955 <Electronically signed by | | | Daljit Singletary MD, [facility], FACP, FASE, FASNC> Daljit | | | MD CLEOPATRA Singletary FASNanette 12/30/12 1608 Hr Representative: Webmike | | | Kikxcichzzich22/08/13 1634 MD ROSEMARY Newby | | | FASE | | + + + + + + + + | Performing | Address | City/[facility] [[email or web address] | Phone Number | | Organization | | | | + + + + + | [facility] | [address] | [place] | [phone] | | [facility] | | [address] | | | - IMAGING | | | | + + + + + documented in this encounter Visit Diagnoses + + | Diagnosis | + + | Palpitations - Primary | + + | PVC (premature ventricular contraction) Other premature beats | + + documented in this encounter
--- OUTSIDE RECORDS SUMMARY | ~2019-12-06 | XMS | Encounter Summary ---
Demographics + + + | Address | [address] | | | [place] [address] | + + + | Home Phone [...] Providers + +------+ + | Care Branch Rental Manager Name | Role | Phone | [...] Show | | 2012 | | MEDICINE [facility] | DO [address] | | | | | [address] | [place] | | | | | [place] | [address] | | | | | [address] | | | | | | [phone] | | | +--------+ + + + [...] | | | | | | [place] [address] | | | | | | [phone] | | | | | | | | +--------+---------+ + + + | 01/01/ | Office | Cardiology | [place], | | | 2019 | Visit | | PARISA [place] [address] | | | | | | [place], | | | | | | [place] [address] | | | | | | [phone] | | | | | | | | +--------+---------+ + + + documented as of this encounter Visit Diagnoses Not on filedocumented in this encounter"
--- OUTSIDE RECORDS SUMMARY | ~2019-12-06 | XMS | Encounter Summary ---
Demographics + + + | Address | [address] | | | [place] [address] | + + + | Home Phone [...] Providers + +------+ + | Care Check And Transfer Beader Name | Role | Phone | + [...] 2012 | | CARDIOLOGY [address] | MEDICATION ADMINISTRATION PROFESSIONAL [address] | | | | | [place], | [place], [place] | | | | | [place] [address] | [address] | | | | | [phone] | | | +--------+ + + + [...] | | | | | [place] [address] | | | | | | [phone] | | | | | | | | +--------+---------+ + + + | 01/01/ | Office | Cardiology | [place], | | | 2019 | Visit | | PARISA [place] [address] | | | | | | [place], | | | | | | [place] [address] | | | | | | [phone] | | | | | | | | +--------+---------+ + + + documented as of this encounter Visit Diagnoses Not on filedocumented in this encounter"
--- OUTSIDE RECORDS SUMMARY | ~2019-12-06 | XMS | Encounter Summary ---
Demographics + + + | Address | [address] | | | [place] [address] | + + + | Home Phone [...] + +------+ + | Care Front End Ui Developer Name | Role | Phone | [...] | disease involving | | | | [place], | [place], | [place] | | | | [place] [address] | [place] [address] | artery of [place] | | | | [phone] | [phone] | heart without angina | | | [...] | | | | | [place] [address] | | | | | | [phone] | | | | | | | | +--------+---------+ + + + | 01/01/ | Office | Cardiology | [place], | | | 2019 | Visit | | PARISA [place] [address] | | | | | | [place], | | | | | | [place] [address] | | | | | | [phone] | | | | | | | [...] MD | | | | | | ([id number]) on 06/23/2016 | | | | | [...] + | Coronary artery disease involving [place] coronary artery of [place] heart without | | angina pectoris - Primary | + + | Essential hypertension with goal blood pressure less than 130/80 | + + documented in this encounter"
--- OUTSIDE RECORDS SUMMARY | ~2019-12-06 | XMS | Encounter Summary ---
Demographics + + + | Address | [address] | | | [place] [address] | + + + | Home Phone [...] Providers + +------+ + | Care Domestic Housekeeper Name | Role | Phone | [...] + + | 12/21/ | Office | [facility] | [place], | Chest pain (Primary | | 2013 | Visit | CARDIOLOGY [address] | PARISA [place] [address] | Dx); Symptomatic | | | | [place], | [place], | PVCs; | | | | [place] [address] | [place] [address] | Hyperlipidemia; | | | | [phone] | [phone] | Hypertension; | | | | | [...] this time to see a specialist in [place] and he was to follow up with [...] MOUTH EVERY DAY 30 table t 5 [place]-3 Fatty Acids (SALMON OIL-1000 PO) CAPS, one [...] to go back in 3 days to [place] for an attempt of ablation under general [...] weeks. He is in class II of [place] Heart Association funct ional class. [...] tolic function, LVEF 65 to 70%. B. 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 documented in [...] | | | | | [place] [address] | | | | | | [phone] | | | | | | | | +--------+---------+ + + + | 01/01/ | Office | Cardiology | [place], | | | 2020 | Visit | | PARISA [place] [address] | | | | | | [place], | | | | | | [place] [address] | | | | | | [phone] | | | | | | | [...] of unspecified type of vessel, | | pilot station or graft | + + documented in this encounter
--- OUTSIDE RECORDS SUMMARY | ~2019-12-06 | XMS | Encounter Summary ---
Demographics + + + | Address | [address] | | | [place] [address] | + + + | Home Phone [...] Team Providers + +------+ + | Care Weigh Machine Operator Name | Role | Phone [...] [address] | | | | | | [place], [place] | (Fax) | | | | | [address] | | | | | | [phone] | | | +--------+ + + + [...] | | | | | [place] [address] | | | | | | [phone] | | | | | | | | +--------+---------+ + + + | 01/01/ | Office | Cardiology | [place], | | | 2020 | Visit | | PARISA [place] [address] | | | | | | [place], | | | | | | [place] [address] | | | | | | [phone] | | | | | | | | +--------+---------+ + + + documented as of this encounter Visit Diagnoses Not on filedocumented in this encounter"
--- OUTSIDE RECORDS SUMMARY | ~2019-12-06 | XMS | Encounter Summary ---
Demographics + + + | Address | [address] | | | [place] [address] | + + + | Home Phone [...] + + | 06/04/ | Hospital | [facility] | [place], | Cervical spinal | | 2016 | Encounter | MED CTR XRAY [address] | Marietta Mason, ADMINISTRATIVE MANAGER [address] | stenosis | | | | [place] | [id number] | | | | | [place] [address] | [place] [address] | | | | | [phone] | [phone] | | | | | | | [...] | | | | | [place] [address] | | | | | | [phone] | | | | | | | | +--------+---------+ + + + | 01/01/ | Office | Cardiology | [place], | | | 2019 | Visit | | Janeen, ENGINEERING CONSULTANT [address] | | | | | | [place], | | | | | | [place] [address] | | | | | | [phone] | | | | | | | [...]
--- OUTSIDE RECORDS SUMMARY | ~2019-12-06 | XMS | Encounter Summary ---
Demographics + + + | Address | [address] | | | [place] [address] | + + + | Home Phone [...] Team Providers + +------+ + | Care Photography Assistant Name | Role | Phone | [...] Visit | CARDIOLOGY [address] | CHEMICAL INSTRUMENTATION OFFICER [address] | (Primary Dx); | | | | [place], | [place], [place] | Symptomatic PVCs; | | | | [place] [address] | [address] | Hypertension; | | | | [phone] | | Hyperlipidemia | +--------+---------+ + + [...] and/or ref er you to electrophysiology in [place]. 3. Return in 3 months, or sooner [...] he did not followup with electrophysiology in [place], so he has remained on diltiaze m [...] Family Status Relation Status Age Mother 62 [place] Father Alive Unknown health Brother Alive Sister [...] by mouth Ken y. 30 tablet 6 [place]-3 Fatty Acids (SALMON OIL-1000 PO) Active CAPS, [...] healthcare provider. PACEMAKER / ICD PARAMETERS Name: Meo Sanchez Date: September 05, 2013 : 1960 Paint Line Operator: PARISA Velazquez Device Multi Operation Machine Operator: [email or web address] Sense (mV) Impedance (?) Capture (V) Capture (ms) A Lead 4-5.6 417 1.5 0.12 RV Lead >31.36 533 2.0 0.09 LV Lead Battery Impedance (?): 452 Battery Voltage (V): 2.79 LA Interval (ms): 162 AR Interval (ms): 245 VA Conduction: Mode Switch Events: 1 % of time: <0.1 -OIL AND GAS RECRUITER: <0.1% AP-OIL AND GAS RECRUITER: 0.1% -VS: 22.7% AP-VS: 77.1% OIL AND GAS RECRUITER: Magnetic Rate: 85 LINDA: 65 LEAH: Current [...] He is upgraded to class I of [place] Heart Association functional class. There are no [...] he would like to see electrophysiology in [place] rather than [place] as he paulino s family there, if [...] made to ensure accuracy; however, inadvertent computerized patch worker errors may be pre sent. Electronically signed by: PARISA Waltno 09/06/2013 17:35 documented in this encounter Plan [...] | | | | | [place] [address] | | | | | | [phone] | | | | | | | | +--------+---------+ + + + | 01/01/ | Office | Cardiology | [place] | | 2019 | Visit | | PARISA [place] [address] | | | | | | [place], | | | | | | [place] [address] | | | | | | [phone] | | | | | | | [...]
--- OUTSIDE RECORDS SUMMARY | ~2019-12-06 | XMS | Encounter Summary ---
Demographics + + + | Address | [address] | | | [place] [address] | + + + | Home Phone [...] Providers + +------+ + | Care Mica Miner Name | Role | Phone | [...] | 09/30/ | Telephone | [facility] [place] | Daljit Singletary, | Other (Danieljoao | | 2018 | | [place] [address] | [address] | remote) | | | | [place], | [place], | | | | | [place] [address] | [place] [address] | | | | | [phone] | [phone] | | | | | | | [...] | | | | | [place] [address] | | | | | | [phone] | | | | | | | | +--------+---------+ + + + | 01/01/ | Office | Cardiology | [place], | | | 2019 | Visit | | PARISA [place] [address] | | | | | | [place] | | | | | | [place] [address] | | | | | | [phone] | | | | | | | | +--------+---------+ + + + documented as of this encounter Visit Diagnoses Not on filedocumented in this encounter"
--- OUTSIDE RECORDS SUMMARY | ~2019-12-06 | XMS | Encounter Summary ---
Demographics + + + | Address | [address] | | | [place] [address] | + + + | Home Phone [...] Providers + +------+ + | Care Lead Ingot Molder Name | Role | Phone | [address] | | | | | | [place], [place] | (Fax) | | | | | [address] | | | | | | [phone] | | | +--------+ + + + [...] | | | | | [place] [id number] | | | | | | [phone] | | | | | | | | +--------+---------+ + + + | 01/01/ | Office | Cardiology | [place], | | | 2020 | Visit | | [facility] [place] [address] | | | | | | [place], | | | | | | [place] [address] | | | | | | [phone] | | | | | | | | +--------+---------+ + + + documented as of this encounter Visit Diagnoses Not on filedocumented in this encounter"
--- OUTSIDE RECORDS SUMMARY | ~2019-12-06 | XMS | Encounter Summary ---
Demographics + + + | Address | [address] | | | [place] [address] | + + + | Home Phone [...] Providers + +------+ + | Care Radio Frequency Engineer Name | Role | Phone | [...] + + | 08/23/ | Telephone | [facility] | AnshujohnsoncherelleDaljit, | Other (edema is | | 2015 | | CARDIOLOGY [address] | MD [address] | blood clots) | | | | [address] [place], | [place], | | | | | [place] [address] | [place] [address] | | | | | [phone] | [phone] | | | | | | | [...] | | | | | [place] [address] | | | | | | [phone] | | | | | | | | +--------+---------+ + + + | 01/01/ | Office | Cardiology | [place], | | | 2019 | Visit | | PARISA Vernon [address] | | | | | | [place], | | | | | | [place] [address] | | | | | | [phone] | | | | | | | | +--------+---------+ + + + documented as of this encounter Visit Diagnoses Not on filedocumented in this encounter"
--- OUTSIDE RECORDS SUMMARY | ~2019-12-06 | XMS | Encounter Summary ---
Demographics + + + | Address | [address] | | | [place] [address] | + + + | Home Phone [...] Providers + +------+ + | Care Medical Technician Assistant Name | Role | Phone [...] 2016 | | CARDIOLOGY [address] | SBA BUSINESS DEVELOPMENT OFFICER [address] [place] | | | | | [place], | St [place], [place] | | | | | [place] [address] | [address] | | | | | [phone] | | | +--------+--------+ + + + [...] | | | | | [place] [address] | | | | | | [phone] | | | | | | | | +--------+---------+ + + + | 01/01/ | Office | Cardiology | [place], | | | 2019 | Visit | | PARISA Vernon [address] | | | | | | [place], | | | | | | [place] [address] | | | | | | [phone] | | | | | | | | +--------+---------+ + + + documented as of this encounter Visit Diagnoses Not on filedocumented in this encounter"
--- OUTSIDE RECORDS SUMMARY | ~2019-12-06 | XMS | Encounter Summary ---
Demographics + + + | Address | [address] | | | [place] [address] | + + + | Home Phone [...] Providers + +------+ + | Care Press Machine Feeder Name | Role | Phone [...] [address] | | | | | [place] | [address] [place] | | | | | [address] | [address] | | | | | [phone] | | | +--------+ + + + [...] | | | | | [place] [address] | | | | | | [phone] | | | | | | | | +--------+---------+ + + + | 01/01/ | Office | Cardiology | [place], | | | 2019 | Visit | | PARISA Vernon [address] | | | | | | [place] | | | | | | [place] [address] | | | | | | [phone] | | | | | | | | +--------+---------+ + + + documented as of this encounter Visit Diagnoses Not on filedocumented in this encounter"
--- OUTSIDE RECORDS SUMMARY | ~2019-12-06 | XMS | Encounter Summary ---
Demographics + + + | Address | [address] | | | [place] [address] | + + + | Home Phone [...] Team Providers + +------+ + | Care Courtesy Driver Name | Role | Phone | + +------+ + PCP | Unavailable | + +------+ + Encounter Details +--------+ + + + + | Date | Type | Department | Care Team | Description | +--------+ + + + + | 01/20/ | [facility] | [facility] | Geri Angel, | | | 2009 | Encounter | MED CTR GENERIC OP | MANAGER PARK [address] | | | | | CONV DEPT [address] | [address] [place] | | | | | [place], | [address] | | | | | [place] [address] | | | | | | [phone] | | | +--------+ + + + [...] | | | | | | [place] [address] | | | | | | [phone] | | | | | | | | +--------+---------+ + + + | 01/01/ | Office | Cardiology | [place], | | | 2020 | Visit | | PARISA Vernon [address] | | | | | | [place], | | | | | | [place] [address] | | | | | | [phone] | | | | | | | | +--------+---------+ + + + documented as of this encounter Visit Diagnoses Not on filedocumented in this encounter"
--- OUTSIDE RECORDS SUMMARY | ~2019-12-06 | XMS | Encounter Summary ---
Demographics + + + | Address | [address] | | | [place] [address] | + + + | Home Phone [...] + +------+ + | Care Real Estate Professional Name | Role | Phone | [...] + + | 10/25/ | Telephone | [facility] | [place], | Other (patient has | | 2013 | | CARDIOLOGY [address] | Janeen MACHINE STEMMER [address] | changed his mind) | | | | [place], | [place], | | | | | [place] [address] | [place] [address] | | | | | [phone] | [phone] | | | | | | | [...] | | | | | [place] [address] | | | | | | [phone] | | | | | | | | +--------+---------+ + + + | 01/01/ | Office | Cardiology | [place], | | | 2019 | Visit | | PARISA Vernon [address] | | | | | | [place], | | | | | | [place] [address] | | | | | | [phone] | | | | | | | | +--------+---------+ + + + documented as of this encounter Visit Diagnoses Not on filedocumented in this encounter"
--- OUTSIDE RECORDS SUMMARY | ~2019-12-06 | XMS | Encounter Summary ---
Demographics + + + | Address | [address] | | | [place] [address] | + + + | Home Phone [...] Team Providers + +------+ + | Care Seconds Inspector Name | Role | Phone | [...] | | | | | | [place] [address] | | | | | | [phone] | | | +--------+ + + + [...] | | | | | [place] [address] | | | | | | [phone] | | | | | | | | +--------+---------+ + + + | 01/01/ | Office | Cardiology | [place], | | | 2020 | Visit | | PARISA Vernon [address] | | | | | | [place], | | | | | | [place] [address] | | | | | | [phone] | | | | | | | | +--------+---------+ + + + documented as of this encounter Visit Diagnoses Not on filedocumented in this encounter"
--- OUTSIDE RECORDS SUMMARY | ~2019-12-06 | XMS | Encounter Summary ---
Demographics + + + | Address | [address] | | | [place] [address] | + + + | Home Phone [...] Providers + +------+ + | Care Ophthalmic Photographer Name | Role | Phone | [...] type ER | [address] | [address] | | | | | FUP | [place] | [place], | | | | | Procedures | [place], [place] | [place] [address] | | | | | FUP - SUW & | [address] | Phone: | | | | | EVM PT, LAST | Phone: | [phone] | | | | | SEEN | [phone] | Fax: | | | | | 08-24-18 | Fax: | [phone] | | | | | | [phone] | | +--------+ + + + + [...] | | | CENTER [address] | [address] [place] | (Primary Dx) | | | | [place], [place] | [place] [address] | | | | | [address] | [phone] | | | | | [phone] | | | +--------+ + + + [...] through Care Everywhere.Chest Pain, Unc ertain Cause ([place])documented in this encounter Medications at Time of [...] + + + +---------+ + + | [place]-3 Fatty | CAPS, one capsule by | [...] | | | | | [place] [address] | | | | | | [phone] | | | | | | | | +--------+---------+ + + + | 01/01/ | Office | Cardiology | [place], | | | 2019 | Visit | | PARISA Vernon [address] | | | | | | [place] | | | | | | [place] [address] | | | | | | [phone] | | | | | | | [...] | | | | ANGELA MARADIAGA MD ([id number]) | | | | | | on [...] [address] | [place] | [phone] | | [facility] | | [address] | | | - LABORATORY | | [...] | Negative | [facility] | | | uqeenie | | | [facility] | | [...] | [facility] | [address] | [place] | [phone] | | [facility] | | [address] | | | - LABORATORY | | [...] - 1.030 | [facility] | | | [employer] | | | [facility] | | [...] [address] | [place] | [phone] | | [facility] | | [address] | | | - LABORATORY | | [...] [address] | [place] | [phone] | | [facility] | | [address] | | | - LABORATORY | | [...] [address] | [place] | [phone] | | [facility] | | [address] | | | - LABORATORY | | [...] | [facility] | [address] | [place] | [phone] | | [facility] | | [address] | | | - LABORATORY | | [...] | [facility] | | | CH[place]AN | RATE,ESTIMATED | | MEDICAL | | | | mL/min/1.28f8Jbfo than | | CENTER - | | [...] | [facility] | [address] | [place] | [phone] | | [facility] | | [address] | | | - LABORATORY | | [...] [address] | [place] | [phone] | | [facility] | | [address] | | | - LABORATORY | | [...] | | | | ANGELA MARADIAGA MD ([id number]) | | | | | | on [...]
--- OUTSIDE RECORDS SUMMARY | ~2019-12-06 | XMS | Encounter Summary ---
Demographics + + + | Address | [address] | | | [place] [address] | + + + | Home Phone [...] Team Providers + +------+ + | Care Croze Cutter Name | Role | Phone | + +------+ + | Kirk Frecnh MD | PCP | | + +------+ [...] [address] | | | | | [address] [place] | [address] [place] | | | | | [address] | [address] | | | | | [phone] | | | +--------+ + + + [...] | | | | | [place] [address] | | | | | | [phone] | | | | | | | | +--------+---------+ + + + | 01/01/ | Office | Cardiology | [place], | | | 2019 | Visit | | PARISA Vernon [address] | | | | | | [place] | | | | | | [place] [address] | | | | | | [phone] | | | | | | | | +--------+---------+ + + + documented as of this encounter Visit Diagnoses Not on filedocumented in this encounter"
--- OUTSIDE RECORDS SUMMARY | ~2019-12-06 | XMS | Encounter Summary ---
Demographics + + + | Address | [address] | | | [place] [address] | + + + | Home Phone [...] Providers + +------+ + | Care Maintenance Helper Utility Engineer Name | Role | Phone | [...] | | | | CENTER [address] | [address] | (Primary Dx) | | | | [place], [place] | [place], [place] | | | | | [address] | [address] | | | | | [phone] | | | +--------+ + + + [...] + + + +---------+ + + | [place]ov[place]-3 Fatty | CAPS, one capsule by | [...] | | | | | [place] [address] | | | | | | [phone] | | | | | | | | +--------+---------+ + + + | 01/01/ | Office | Cardiology | [place], | | | 2019 | Visit | | PARISA Vernon [address] | | | | | | [place] | | | | | | [place] [address] | | | | | | [phone] | | | | | | | [...] W?MRN: | | | | | | [id number] | | | [id number] | | | his | | | [...] | | | ent/60 | | | [id number] | | | -5586- | | | [...] | | | St. | | | [place] | | | y | | | [...] | | | ext. | | | [address] | | | or go | | [...] | | | M.D. | | | Psychologist Personnel | | | al | | | [...] [address] | [place] | [phone] | | [facility] | | [address] | | | - LABORATORY | | [...] [address] | [place] | [phone] | | [facility] | | [address] | | | - LABORATORY | | [...] + | [facility] | [address] | [place] | [phone] | | [facility] | | [address] | | | - LABORATORY | | [...] | [place] | | | [place] | RATE,ESTIMATED | | MEDICAL | | | | mL/min/1.01o2Bnih than | | CENTER - | | [...] [address] | [place] | [phone] | | [facility] | | [address] | | | - LABORATORY | | [...] | | Lymphocytes | | K/uL | [facility] | | | | | [...] [address] | [place] | [phone] | | [facility] | | [address] | | | - LABORATORY | | [...] ST. | [address] | [place], [place] | [phone] | | [facility] | | [address] | | | - LABORATORY | | [...] MD | | | | | | ([id number]) on 06/22/2018 | | | | | [...]
--- OUTSIDE RECORDS SUMMARY | ~2019-12-06 | XMS | Encounter Summary ---
Demographics + + + | Address | [address] | | | [place] [address] | + + + | Home Phone [...] | | | | exertion | | [address] [place] | | | | | Chest pain | | [place], [place] | | | | | on exertion | | [address] | | | | | | | Phone: | | | | | | | [phone] | | | | | | | Fax: | | | | | | | [phone] | +--------+--------+ + + + + Encounter Details +--------+ + + + + | Date | Type | Department | Care Team | Description | +--------+ + + + + | 04/27/ | Emergency | [facility] | Martell Hart | Chest pain on | | 2014 - | | [facility] | Sanjay Palacios MD | exertion (Primary | | | | [address] [place] | [address] | Dx); Dyspnea on | | 03/20/ | | [place] [address] | [place] | exertion; Essential | | 2014 | | [phone] | [address] | hypertension; Acute | | | | | | chest pain; | | | | | Parth Kraft, | Dizziness, | | | | | [address] | nonspecific; Mixed | | | | | [place] | anxiety depressive | | | | | [address] | disorder; PUD | | | | | [phone] | (peptic ulcer | | | | [...] be different f rom the original. [facility] DISCHARGE SUMMARY Pt. Name/Age/: Moe [...] 911 aka: NITROSTAT ONE TOUCH DELICA LANCETS [facility] Check glucose as needed for hypoglycemia OSTEO [...] Daily. to reduce urinary frequency - Lot #[id number], exp 07/2016 aka: RAPAFLO UNCODED MEDICATION - [...] follow up Contact information: [address] [address] Call PARISA Russell. Specialty: Nurse Practitioner Why: As needed Contact information: [address] [place] [address] Condition: Patient being discharged with condition improved. Diet: Heart healthy, avoid acidic drinks and foods, spicy foods, too much coffee. Greater than 30 minutes were spent on discharge and coordination of post-hospital care. Electronically signed by: Thierry Fregoso DO, 03/20/2015 11:22 [facility] Portions of this chart may have been created with Satiety voice recognition software. Occasi onal wrong-word or [...] afford the prescribed medication, you can try tmrc-bbj-rbgixfi acid blockers, such as Pepcid AC, Tagamet, [...] or as directed by your healthcare provider [phone] [employer]. [address] [place] [address]. All righ ts reserved. This information is [...] + + + +---------+ + + | [place]-3 Fatty | CAPS, one capsule by | [...] | | | | | | | #[id number], exp 07/2016 | | | | | [...] - 03/19/2015 10:09 PM PDT . [facility] PROGRESS NOTE Patient: Moe Sanchez : 1960: Age: 55 y.o. MedRec: [id number] PCP: Kikr French Admission date: 03/18/2015 Hospital day # [...] 1708 03/18/15 1528 TROPONINI <0.01 <0.01 0.01 [facility] ECHOCARDIOGRAM REPORT STUDY DATE: 03/19/2015 PATIENT [...] changes. No results for input(s): PHART, PO2ART, IKW7KGF, NLM0CWU, BEART, W7SFPWXI in the last 168 h ours. No results for input(s): SPECSOURCE, PHPOCB, HCO3, TCO2, BEART, BE, GPTW1EOX in the last 16 8 hours. Invalid input(s): VPSAE1KX, VPSG0UW Point of care glucose: No results for [...] minutes today. Thierry Fregoso DO 03/19/2015 22:09 [facility] Portions of this chart may have been created with Satiety voice recognition software. Occasi onal wrong-word or sound-alike substitutions may have occurred due to the inherent granger itations of voice recognition software. Please read the chart carefully and recognize, using context, where these substitutions have occurred Belén Cho RN - 03/19/2015 11:03 AM [id number] Report given to Marlen morejon who is [...] | | | | | [place] [address] | | | | | | [phone] | | | | | | | | +--------+---------+ + + + | 01/01/ | Office | Cardiology | [place], | | | 2019 | Visit | | PARISA Vernon [address] | | | | | | [place], | | | | | | [place] [address] | | | | | | [phone] | | | | | | | [...] Performed At | + + + | [facility] ECHOCARDIOGRAM REPORT | | | STUDY [...] | Signed by: Daljit Singletary MD [facility] 03/19/2015 15:44 | | | Global Sales Director: Dewey Valdez RDMS | | + + [...] | | | | | | [employer] | | | | | [...] [address] | [place] | [phone] | | [facility] | | [address] | | | - LABORATORY | | [...] | | MEDICAL | | | | mL/min/1.61z6Zqam than | | CENTER - | | [...] [address] | [place] | [phone] | | [facility] | | [address] | | | - LABORATORY | | [...] [address] | [place] | [phone] | | [facility] | | [address] | | | - LABORATORY | | [...] | | | | | | [employer] | | | | | [...] ST. | [address] | [place], [place] | [phone] | | [facility] | | [address] | | | - LABORATORY | | [...] + | [address] | [address] | [place] | [phone] | | [facility] | | [address] | | | - LABORATORY | | [...] [address] | [place] | [phone] | | [facility] | | [address] | | | - LABORATORY | | [...] ST. | [address] | [place] | [phone] | | [facility] | | [address] | | | - LABORATORY | | [...] [address] | [place] | [phone] | | [facility] | | [address] | | | - LABORATORY | | [...] | | | | | | [employer] | | | | | [...] + | [address] | [address] | [place] | [phone] | | [facility] | | [address] | | | - LABORATORY | | [address] | [place] | [phone] | | [facility] | | [address] | | | - LABORATORY | | [...] | | MEDICAL | | | | mL/min/1.78l8Ffuu than | | CENTER - | | [...] + | [facility] | [address] | [place] | [phone] | | [facility] | | [address] | | | - LABORATORY | | [...] [address] | [place] | [phone] | | [facility] | | [address] | | | - LABORATORY | | [...]
--- OUTSIDE RECORDS SUMMARY | ~2019-12-06 | XMS | Encounter Summary ---
Demographics + + + | Address | [address] | | | [place] [address] | + + + | Home Phone [...] 2019 | | GASTROENTEROLOGY | [address], [place] | Recommendations | | | | [address] [place] | [address] [place], [place] | | | | | [address] [place], [place] | [address] | | | | | [address] | | | | | | [phone] | | | +--------+ + + + [...] | | | | | [place] [address] | | | | | | [phone] | | | | | | | | +--------+---------+ + + + | 01/01/ | Office | Cardiology | [place]via, | | | 2019 | Visit | | PARISA Vernon [address] | | | | | | [place] | | | | | | [place] [address] | | | | | | [phone] | | | | | | | | +--------+---------+ + + + documented as of this encounter Visit Diagnoses Not on filedocumented in this encounter"
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
== END 2019-12-06 18:57 | disposition home or self-care (01) ==
LOC: ED 13:50
DX: R10.9 Unspecified abdominal pain (principal); R19.7 Diarrhea, unspecified; I10 Essential (primary) hypertension; Z88.0 Allergy status to penicillin; Z88.5 Allergy status to narcotic agent; Z88.1 Allergy status to other antibiotic agents; Z88.8 Allergy status to other drugs, medicaments and biological substances; Z79.899 Other long term (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; Z79.82 Long term (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
CPT/HCPCS: 80053; 81001; 83690; 85025; 96361; 96374; 96375; 96376; 99284-25; J1170; J2405; J7030

== ENCOUNTER 2019-12-31 10:37 | Emergency (ER) | payer MEDICARE ==
[~2019-12-31] VITALS: Ht 193 cm; Wt 99.8 kg
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
== END 2019-12-31 13:27 | disposition home or self-care (01) ==
LOC: ED 10:37
DX: R19.5 Other fecal abnormalities (principal); R10.31 Right lower quadrant pain; G89.29 Other chronic pain; I10 Essential (primary) hypertension; Z88.0 Allergy status to penicillin; Z88.5 Allergy status to narcotic agent; Z88.1 Allergy status to other antibiotic agents; Z79.899 Other long term (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; Z79.82 Long term (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
CPT/HCPCS: 80053; 81001; 83690; 85025; 96361; 96374; 96375; 99284-25; J2060; J2405; J7030

== ENCOUNTER 2020-01-05 22:34 | Emergency (ER) | payer MEDICARE ==
[~2020-01-05] VITALS: Ht 193 cm; Wt 99.8 kg
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
== END 2020-01-06 01:02 | disposition home or self-care (01) ==
LOC: ED 22:34
DX: K52.9 Noninfective gastroenteritis and colitis, unspecified (principal); I10 Essential (primary) hypertension; Z88.0 Allergy status to penicillin; Z88.5 Allergy status to narcotic agent; Z88.1 Allergy status to other antibiotic agents; Z79.899 Other long term (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; Z79.82 Long term (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
CPT/HCPCS: 80053; 81001; 83690; 85025; 96361; 96374; 96375; 99284-25; J1170; J2405; J7030

== ENCOUNTER 2020-01-20 12:55 | Emergency (ER) | payer MEDICARE ==
[~2020-01-20] VITALS: Ht 193 cm; Wt 127.0 kg
== END 2020-01-20 14:56 | disposition home or self-care (01) ==
LOC: ED 12:55
DX: R10.9 Unspecified abdominal pain (principal); R11.0 Nausea; R19.7 Diarrhea, unspecified; I10 Essential (primary) hypertension; E78.00 Pure hypercholesterolemia, unspecified; Z88.0 Allergy status to penicillin; Z79.899 Other long term (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
CPT/HCPCS: 80053; 83690; 85025; 96374; 99284-25; J0500; J2550; J7030

== ENCOUNTER 2020-04-13 20:45 | Emergency (ER) | payer MEDICARE ==
[~2020-04-13] VITALS: Ht 193 cm; Wt 117.9 kg
--- OUTSIDE RECORDS SUMMARY | ~2020-04-13 | XMS | Encounter Summary ---
Demographics + + + | Address | [address] | | | [place] [address] | + + + | Home Phone | | + + + | Preferred Language | Unknown | + + + | Marital Status | | + + + | Rastafarian Affiliation | 1013 | + + + | Race | Unknown | + + + | Ethnic Group | Unknown | + + + Author + + + | Author | [facility] | | | and [place] | + + + | Organization | [facility] | | | and [...] Team Providers + +------+ + | Care [employer] Principal Name | Role | Phone | + +------+ + | Michael Amanda DO | PCP | | + +------+ + Encounter Details +--------+ + + + + | Date | Type | Department | Care Team | Description | +--------+ + + + + | 12/19/ | Abstract | [facility] | Daljit Singletary, | Chest pain (Primary | | 2013 | | CARDIOLOGY [address] | MD [address] | Dx); SINUS | | | | [place], | [place], | [place] | | | | [place] [address] | [place] [address] | | | | | [phone] | [phone] | | | | | | | | +--------+ + + + + Social History + +--------+ +--------+ + | Tobacco Use | Types | Packs/Day | Years | Date | | | | | Used | | + +--------+ +--------+ + | Former Smoker | Cigars | | | Quit: 06/12/2009 | + +--------+ +--------+ + + + | Comments: 1 cigar weekly for 30 years | + + + + +---------+ + [...] + + + | Blood Pressure | 102/82 | 03/09/2012 4:11 PM | | | | | PDT | | + + + + + | Pulse | 72 | 03/09/2012 4:11 PM | | | | | PDT | | + + + + + | Temperature | - | - | | + + + + + | Respiratory Rate | 16 | 03/09/2012 4:11 PM | | | | | PDT | | + + + + + | Oxygen Saturation | - | - | | + + + + + | Inhaled Oxygen | - | - | | | Concentration | | | | + + + + + | Weight | 108.9 kg (240 lb) | 03/09/2012 4:11 PM | | | | | PDT | | + + + + + | Height | 193 cm (6' 4") | 03/09/2012 4:11 PM | | | | | PDT | | + + + + + | Body Mass Index | 29.21 | 03/09/2012 4:11 PM | | | | | PDT [...] [place], | | | | | | [place] [address] | | | | | | [phone] | | | | | | | | +--------+ + + + + | 05/01/ | Procedure | Cardiology | | | | 2019 | visit | | | | +--------+ + + + + | 05/01/ | Office | Cardiology | [place], | | | 2019 | Visit | | [address] | | | | | | [place], | | | | | | [place] [address] | | | | | | [phone] | | | | | | | | +--------+ + + + + | 05/21/ | Implant | Cardiology | Daljit Singletary, | Remote Device | | 2019 | Monitor | | [address] [place] | Interrogation | | | | | [place], | (Primary Dx); | | | | | [place] [address] | Pacemaker; | | | | | [phone] | Sinoatrial node | | | | | | dysfunction (HCC) | | | | | | with symptomatic | | | | | | bradycardia | +--------+ + + + + documented as of this encounter Visit Diagnoses + + | Diagnosis | + + | Chest pain - Primary Chest pain, unspecified | + + | SINUS BRADYCARDIA Sinoatrial node dysfunction | + + documented in this encounter
--- OUTSIDE RECORDS SUMMARY | ~2020-04-13 | XMS | Encounter Summary ---
Demographics + + + | Address | [address] | | | [place] [address] | + + + | Home Phone | | + + + | Preferred Language | Unknown | + + + | Marital Status | | + + + | Mormonism Affiliation | 1013 | + + + | Race | Unknown | + + + | Ethnic Group | Unknown | + + + Author + + + | Author | [facility] | | | and [place] | + + + | Organization | [facility] | | | and [...] Team Providers + +------+ + | Care Advanced Manufacturing Vice President Name | Role | Phone | + +------+ + PCP | Unavailable | + +------+ + Encounter Details +--------+ + + + + | Date | Type | Department | Care Team | Description | +--------+ + + + + | 10/19/ | Hospital | [facility] | | | | 1992 | Encounter | [facility] | | | | | | CENTER [address] | | | | | | [place] | | | | | | [address] | | | | | | [phone] | | | +--------+ + + + [...] | | | | | | [place] [address] | | | | | | [phone] | | | | | | | | +--------+ + + + + | 05/01/ | Procedure | Cardiology | | | | 2019 | visit | | | | +--------+ + + + + | 05/01/ | Office | Cardiology | [place], | | | 2019 | Visit | | [address] | | | | | | [place], | | | | | | [place] [address] | | | | | | [phone] | | | | | | | | +--------+ + + + + | 05/21/ | Implant | Cardiology | Daljit Singletary, | Remote Device | 2019 | Monitor | | [address] [place] | Interrogation | | | | | [place], | (Primary Dx); | | | | | [place] [address] | Pacemaker; | | | | | [phone] | Sinoatrial node | | | | | | dysfunction (HCC) | | | | | | with symptomatic | | | | | | bradycardia | +--------+ + + + + documented as of this encounter Visit Diagnoses Not on filedocumented in this encounter"
--- OUTSIDE RECORDS SUMMARY | ~2020-04-13 | XMS | Encounter Summary ---
Demographics + + + | Address | [address] | | | [place] [address] | + + + | Home Phone | | + + + | Preferred Language | Unknown | + + + | Marital Status | | + + + | Nondenominational Affiliation | 1013 | + + + [...] Team Providers + +------+ + | Care Software Quality Assurance Engineer Name | Role | Phone | + +------+ + | Kirk French MD | PCP | | + +------+ + Encounter Details +--------+ + + + + | Date | Type | Department | Care Team | Description | +--------+ + + + + | 06/22/ | Abstract | [facility] | [place], | | | 2016 | | CARDIOLOGY [address] | | | | | [place], | [place], | | | | | [place] [address] | [place] [address] | | | | | [phone] | [phone] | | | | | | | [...] W | | | | | | [place], | | | | | | [place] [address] | | | | | | [phone] | | | | | | | | +--------+ + + + + | 05/01/ | Procedure | Cardiology | | | | 2019 | visit | | | | +--------+ + + + + | 05/01/ | Office | Cardiology | [place], | | | 2019 | Visit | | [address] | | | | | | [place], | | | | | | [place] [address] | | | | | | [phone] | | | | | | | | +--------+ + + + + | 05/21/ | Implant | Cardiology | Daljit Singletary, | Remote Device | 2019 | Monitor | | MD [place] | Interrogation | | | | | [place], | (Primary Dx); | | | | | [place] [address] | Pacemaker; | | | | | [phone] | Sinoatrial node | | | | [...] +--------+ + + + | EXTERNAL LAB: [facility] | Routin | 05/12/2016 | | Results for this | | | e | | | procedure are in the | | | | | | results section. | + +--------+ + + + | EXTERNAL LAB: | Routin | 05/12/2016 | | Results for this | | GLUCOSE | e | | | procedure are in the | | | | | | results section. | + +--------+ + + + | EXTERNAL LAB: ALT | Routin | 05/12/2016 | | Results for this | | | e | | | procedure are in the | | | | | | results section. | + +--------+ + + + | EXTERNAL LAB: AST | Routin | 05/12/2016 | | Results for this | | | e | | | procedure are in the | | | | | | results section. | + +--------+ + + + | EXTERNAL LAB: | Routin | 05/12/2016 | | Results for this | | ALKALINE PHOSPHATASE | e | | | procedure are in the | | | | | | results section. | + +--------+ + + + | EXTERNAL LAB: | Routin | 05/12/2016 | | Results for this | | BILIRUBIN, TOTAL | e | | | procedure are in the | | | | | | results section. | + +--------+ + + + | EXTERNAL LAB: | Routin | 05/12/2016 | | Results for this | | ALBUMIN | e | | | procedure are in the | | | | | | results section. | + +--------+ + + + | EXTERNAL LAB: | Routin | 05/12/2016 | | Results for this | | PROTEIN, TOTAL | e | | | procedure are in the | | | | | | results section. | + +--------+ + + + | EXTERNAL LAB: | Routin | 05/12/2016 | | Results for this | | CALCIUM | e | | | procedure are in the | | | | | | results section. | + +--------+ + + + | EXTERNAL LAB: CARBON | Routin | 05/12/2016 | | Results for this | | DIOXIDE | e | | | procedure are in the | | | | | | results section. | + +--------+ + + + | EXTERNAL LAB: | Routin | 05/12/2016 | | Results for this | | CHLORIDE | e | | | procedure are in the | | | | | | results section. | + +--------+ + + + | EXTERNAL LAB: | Routin | 05/12/2016 | | Results for this | | POTASSIUM | e | | | procedure are in the | | | | | | results section. | + +--------+ + + + | EXTERNAL LAB: SODIUM | Routin | 05/12/2016 | | Results for this | | | e | | | procedure are in the | | | | | | results section. | + +--------+ + + + | EXTERNAL LAB: CBC | Routin | 05/12/2016 | | Results for this | | | e | | | procedure are in the | | | | | | results section. | + +--------+ + + + | EXTERNAL LAB: TSH | Routin | 05/12/2016 | | Results for this | | | e | | | procedure are in the | | | | | | results section. | + +--------+ + + + | EXTERNAL LAB: EGFR | Routin | 05/12/2016 | | Results for this | | | e | | | procedure are in the | | | | | | results section. | + +--------+ + + + | EXTERNAL LAB: | Routin | 05/12/2016 | | Results for this | | CREATININE | e | | | procedure are in the | | | | | | results section. | + +--------+ + + + | CBC WITH | Routin | 05/12/2016 | | Results for this | | DIFFERENTIAL | e | | | procedure are in the | | | | | | results section. | + +--------+ + + + | COMPREHENSIVE | Routin | 05/12/2016 | | Results for this | | METABOLIC PANEL | e | | | procedure are in the | | | | | | results section. | + +--------+ + + + documented in this encounter Results External Lab: [facility] (05/12/2016) + +-------+ + + + | Component | Value | Ref Range | Performed | Pathologist | | | | | At | Signature | + +-------+ + + + | BUN, | 17 | 8 - 25 | EXTERNAL | | | External | | | LAB | | + +-------+ + + + + + | Resulting Agency Comment | + + | [facility] | + + + +---------+ + + | Performing | Address | City/State/Zipcode | Phone Number | | Organization | | | | + +---------+ + + | EXTERNAL LAB | | | | + +---------+ + + External Lab: Glucose (05/12/2016) + +-------+ + + + | Component | Value | Ref Range | Performed | Pathologist | | | | | At | Signature | + +-------+ + + + | Glucose, | 91 | 65 - 99 | EXTERNAL | | | External | | | LAB | | + +-------+ + + + + + | Resulting Agency Comment | + + | [facility] | + + + +---------+ + + | Performing | Address | City/State/Zipcode | Phone Number | | Organization | | | | + +---------+ + + | EXTERNAL LAB | | | | + +---------+ + + External Lab: ALT (05/12/2016) + +-------+ + + + | Component | Value | Ref Range | Performed | Pathologist | | | | | At | Signature | + +-------+ + + + | ALT, | 41 | 10 - 65 | EXTERNAL | | | External | | | LAB | | + +-------+ + + + + + | Resulting Agency Comment | + + | [facility] | + + + +---------+ + + | Performing | Address | City/State/Zipcode | Phone Number | | Organization | | | | + +---------+ + + | EXTERNAL LAB | | | | + +---------+ + + External Lab: AST (05/12/2016) + +-------+ + + + | Component | Value | Ref Range | Performed | Pathologist | | | | | At | Signature | + +-------+ + + + | AST, | 25 | 10 - 45 | EXTERNAL | | | External | | | LAB | | + +-------+ + + + + + | Resulting Agency Comment | + + | [facility] | + + + +---------+ + + | Performing | Address | City/State/Zipcode | Phone Number | | Organization | | | | + +---------+ + + | EXTERNAL LAB | | | | + +---------+ + + External Lab: Alkaline Phosphatase (05/12/2016) + +-------+ + + + | Component | Value | Ref Range | Performed | Pathologist | | | | | At | Signature | + +-------+ + + + | ALP, | 67 | 35 - 115 | EXTERNAL | | | External | | | LAB | | + +-------+ + + + + + | Resulting Agency Comment | + + | [facility] | + + + +---------+ + + | Performing | Address | City/State/Zipcode | Phone Number | | Organization | | | | + +---------+ + + | EXTERNAL LAB | | | | + +---------+ + + External Lab: Bilirubin, Total (05/12/2016) + +-------+ + + + | Component | Value | Ref Range | Performed | Pathologist | | | | | At | Signature | + +-------+ + + + | Bilirubin, | 0.9 | 0.1 - 1.5 | EXTERNAL | | | Total, | | | LAB | | | External | | | | | + +-------+ + + + + + | Resulting Agency Comment | + + | [facility] | + + + +---------+ + + | Performing | Address | City/State/Zipcode | Phone Number | | Organization | | | | + +---------+ + + | EXTERNAL LAB | | | | + +---------+ + + External Lab: Albumin (05/12/2016) + +-------+ + + + | Component | Value | Ref Range | Performed | Pathologist | | | | | At | Signature | + +-------+ + + + | Albumin, | 4.3 | 3.6 - 5 | EXTERNAL | | | External | | | LAB | | + +-------+ + + + + + | Resulting Agency Comment | + + | [facility] | + + + +---------+ + + | Performing | Address | City/State/Zipcode | Phone Number | | Organization | | | | + +---------+ + + | EXTERNAL LAB | | | | + +---------+ + + External Lab: Protein, Total (05/12/2016) + +-------+ + + + | Component | Value | Ref Range | Performed | Pathologist | | | | | At | Signature | + +-------+ + + + | Protein, | 6.8 | 6.3 - 8.2 | EXTERNAL | | | Total, | | | LAB | | | External | | | | | + +-------+ + + + + + | Resulting Agency Comment | + + | [facility] | + + + +---------+ + + | Performing | Address | City/State/Zipcode | Phone Number | | Organization | | | | + +---------+ + + | EXTERNAL LAB | | | | + +---------+ + + External Lab: Calcium (05/12/2016) + +-------+ + + + | Component | Value | Ref Range | Performed | Pathologist | | | | | At | Signature | + +-------+ + + + | Calcium, | 9.6 | 8.5 - 10.5 | EXTERNAL | | | External | | | LAB | | + +-------+ + + + + + | Resulting Agency Comment | + + | [facility] | + + + +---------+ + + | Performing | Address | City/State/Zipcode | Phone Number | | Organization | | | | + +---------+ + + | EXTERNAL LAB | | | | + +---------+ + + External Lab: Carbon Dioxide (05/12/2016) + +-------+ + + + | Component | Value | Ref Range | Performed | Pathologist | | | | | At | Signature | + +-------+ + + + | Carbon | 26 | 23 - 32 | EXTERNAL | | | Dioxide, | | | LAB | | | External | | | | | + +-------+ + + + + + | Resulting Agency Comment | + + | [facility] | + + + +---------+ + + | Performing | Address | City/State/Zipcode | Phone Number | | Organization | | | | + +---------+ + + | EXTERNAL LAB | | | | + +---------+ + + External Lab: Chloride (05/12/2016) + +-------+ + + + | Component | Value | Ref Range | Performed | Pathologist | | | | | At | Signature | + +-------+ + + + | Chloride, | 107 | 99 - 109 | EXTERNAL | | | External | | | LAB | | + +-------+ + + + + + | Resulting Agency Comment | + + | [facility] | + + + +---------+ + + | Performing | Address | City/State/Zipcode | Phone Number | | Organization | | | | + +---------+ + + | EXTERNAL LAB | | | | + +---------+ + + External Lab: Potassium (05/12/2016) + +-------+ + + + | Component | Value | Ref Range | Performed | Pathologist | | | | | At | Signature | + +-------+ + + + | Potassium, | 4.3 | 3.5 - 4.9 | EXTERNAL | | | External | | | LAB | | + +-------+ + + + + + | Resulting Agency Comment | + + | [facility] | + + + +---------+ + + | Performing | Address | City/State/Zipcode | Phone Number | | Organization | | | | + +---------+ + + | EXTERNAL LAB | | | | + +---------+ + + External Lab: Sodium (05/12/2016) + +-------+ + + + | Component | Value | Ref Range | Performed | Pathologist | | | | | At | Signature | + +-------+ + + + | Sodium, | 141 | 135 - 143 | EXTERNAL | | | External | | | LAB | | + +-------+ + + + + + | Resulting Agency Comment | + + | [facility] | + + + +---------+ + + | Performing | Address | City/State/Zipcode | Phone Number | | Organization | | | | + +---------+ + + | EXTERNAL LAB | | | | + +---------+ + + External Lab: CBC (05/12/2016) + + + + + + | Component | Value | Ref Range | Performed | Pathologist | | | | | At | Signature | + + + + + + | WBC, | 7.76 | 3.8 - 11 | EXTERNAL | | | External | | | LAB | | + + + + + + | HGB, | 17.8 (A) | 13.2 - 17 | EXTERNAL | | | External | | | LAB | | + + + + + + | HCT, | 53.2 (A) | 39 - 50 | EXTERNAL | | | External | | | LAB | | + + + + + + | PLT, | 129 (A) | 150 - 400 | EXTERNAL | | | External | | | LAB | | + + + + + + | Neutrophils | 70.15 | | EXTERNAL | | | %, | | | LAB | | | External | | | | | + + + + + + | Lymphocytes | 18.67 | | EXTERNAL | | | %, | | | LAB | | | External | | | | | + + + + + + | Monocytes | 9.43 | | EXTERNAL | | | %, External | | | LAB | | + + + + + + | Eosinophils | 1.25 | | EXTERNAL | | | %, | | | LAB | | | External | | | | | + + + + + + | Neutrophils | 5.44 | 1.9 - 7.4 | EXTERNAL | | | , Absolute, | | | LAB | | | External | | | | | + + + + + + | Lymphocytes | 1.45 | 1 - 3.9 | EXTERNAL | | | , Absolute, | | | LAB | | | External | | | | | + + + + + + | Monocytes, | 0.73 | 0 - 0.8 | EXTERNAL | | | Absolute, | | | LAB | | | External | | | | | + + + + + + | Eosinophils | 0.1 | 0 - 0.5 | EXTERNAL | | | , Absolute | | | LAB | | + + + + + + | Basophils, | 0.04 | 0 - 0.1 | EXTERNAL | | | Absolute | | | LAB | | + + + + + + | RBC, | 5.46 | 4.2 - 5.7 | EXTERNAL | | | External | | | LAB | | + + + + + + | MCV, | 98 | 80 - 100 | EXTERNAL | | | External | | | LAB | | + + + + + + | RDW, | 42.9 | 37 - 53 | EXTERNAL | | | External | | | LAB | | + + + + + + + + | Resulting Agency Comment | + + | [facility] | + + + +---------+ + + | Performing | Address | City/State/Zipcode | Phone Number | | Organization | | | | + +---------+ + + | EXTERNAL LAB | | | | + +---------+ + + External Lab: TSH (05/12/2016) + +-------+ + + + | Component | Value | Ref Range | Performed | Pathologist | | | | | At | Signature | + +-------+ + + + | TSH, | 1.15 | 0.45 - 5.1 | EXTERNAL | | | External | | | LAB | | + +-------+ + + + + + | Specimen | + + | Blood specimen | | (specimen) | + + + + | Resulting Agency Comment | + + | [facility] | + + + +---------+ + + | Performing | Address | City/State/Zipcode | Phone Number | | Organization | | | | + +---------+ + + | EXTERNAL LAB | | | | + +---------+ + + External Lab: eGFR (05/12/2016) + +-------+ + + + | Component | Value | Ref Range | Performed | Pathologist | | | | | At | Signature | + +-------+ + + + | eGFR, | >60 | 60 - 999,999 | EXTERNAL | | | External | | | LAB | | + +-------+ + + + + + | Specimen | + + | Blood specimen | | (specimen) | + + + + | Resulting Agency Comment | + + | [facility] | + + + +---------+ + + | Performing | Address | City/State/Zipcode | Phone Number | | Organization | | | | + +---------+ + + | EXTERNAL LAB | | | | + +---------+ + + External Lab: Creatinine (05/12/2016) + +-------+ + + + | Component | Value | Ref Range | Performed | Pathologist | | | | | At | Signature | + +-------+ + + + | Creatinine, | 0.9 | 0.7 - 1.3 | EXTERNAL | | | External | | | LAB | | + +-------+ + + + + + | Specimen | + + | Blood specimen | | (specimen) | + + + + | Resulting Agency Comment | + + | [facility] | + + + +---------+ + + | Performing | Address | City/State/Zipcode | Phone Number | | Organization | | | | + +---------+ + + | EXTERNAL LAB | | | | + +---------+ + + Comprehensive Metabolic Panel (05/12/2016) + +-------+ + + + | Component | Value | Ref Range | Performed | Pathologist | | | | | At | Signature | + +-------+ + + + | Anion Gap | 12 | mmol/L | [facility] | | | | | | [facility] | | | | | | [facility] | | | | [facility] - | | | | | | [facility] | | + +-------+ + + + | BUN/Creatin | 19 | | [facility] | | | ine Ratio | | | [facility] | | | | | | [facility] | | | | | | [facility] - | | | | | | [facility]ORY | | + +-------+ + + + | Globulin | 2.5 | | [facility] | | | | | | [facility] | | | | | | [facility] | | | | | [facility] - | | | | | | LAB[facility]ATORY | | + +-------+ + + + | Albumin/Sandee | 1.7 | | [facility] | | | bulin Ratio | | | [facility] | | [...] + + | [facility] | [address] | [place] | [phone] | | [facility] | | [id number] | | | - LABORATORY | | | | + + + + + CBC with Differential (05/12/2016) + +-------+ + + + | Component | Value | Ref Range | Performed | Pathologist | | | | | At | Signature | + +-------+ + + + | MCH | 32.5 | 26.0 - 33.0 pg | | | + +-------+ + + + | MCHC | 33.4 | 31.0 - 37.0 % | | | + +-------+ + + + | % Basophils | 0.5 | 1.0 % | | | + +-------+ + + + + + | Specimen | + + | Blood specimen | | (specimen) | + + documented in this encounter Visit Diagnoses Not on filedocumented in this encounter"
--- OUTSIDE RECORDS SUMMARY | ~2020-04-13 | XMS | Encounter Summary ---
Demographics + + + | Address | [address] | | | [place] [address] | + + + | Home Phone [...] Team Providers + +------+ + | Care Senior Net Web Developer Name | Role | Phone | + +------+ + PCP | Unavailable | + +------+ + Encounter Details +--------+ + + + + | Date | Type | Department | Care Team | Description | +--------+ + + + + | 05/13/ | [facility] | [facility] | Dom Graham, | | | 2010 | Encounter | MED CTR EMER[facility]ENCY | [address] | | | | | CENTER [address] | [place] | | | | | [place] | [address] | | | | | [address] | | | | | | [phone] | | | +--------+ + + + [...] W | | | | | | [address], | | | | | | [place] [address] | | | | | | [phone] | | | | | | | | +--------+ + + + + | 05/01/ | Procedure | Cardiology | | | | 2019 | visit | | | | +--------+ + + + + | 05/01/ | Office | Cardiology | Silvia | | | 2019 | Visit | | [place] [address] | | | | | | [address], | | | | | | [place] [address] | | | | | | [phone] | | | | | | | | +--------+ + + + + | 05/21/ | Implant | Cardiology | Daljit Singletary, | Remote Device | 2019 | Monitor | | MD [address] | Interrogation | | | | | [place], | (Primary Dx); | | | | | [place] [address] | Pacemaker; | | | | | [phone] | Sinoatrial node | | | | [...] | + +--------+ + + + | TROPONIN I | Routin | 05/13/2011 | | Results for this | | | e | 6:13 PM | | procedure are in the | | | | PDT | | results section. | + +--------+ + + + | CBC WITH | Routin | 05/13/2011 | | Results for this | | DIFFERENTIAL | e | 3:46 PM | | procedure are in the | | | | PDT | | results section. | + +--------+ + + + | TROPONIN I | Routin | 05/13/2011 | | Results for this | | | e | 3:25 PM | | procedure are in the | | | | PDT | | results section. | + +--------+ + + + | COMPREHENSIVE | Routin | 05/13/2011 | | Results for this | | METABOLIC PANEL | e | 3:25 PM | | procedure are in the | | | | PDT | | results section. | + +--------+ + + + | XR CHEST AP PORTABLE | | 05/13/2011 | | Results for this | | | | 3:01 PM | | procedure are in the | | | | PDT | | results section. | + +--------+ + + + documented in this encounter Results Troponin I (05/13/2011 6:13 PM PDT) + + + + + + | Component | Value | Ref Range | Performed | Pathologist | | | | | At | Signature | + + + + + + | Troponin I | <0.01Comment: Reference | <0.10 ng/mL | [facility] | | | | Ranges: | | [facility] | | | | 0.00-0.09 = NORMAL | | MEDICAL | | | | 0.10-0.50 | | CENTER - | | | | = | | LABORATORY | | | | INDETERMINATE-SUSPICIOUS | | | | | | FOR | | | | | | | | | | | | NON-INFARCT | | | | | | MYOCARDIAL INJURY | | | | | | >0.50 = | | | | | | CONSISTENT WITH | | | | | | MYOCARDIAL INFARCT | | | | | | Results in the | | | | | | Indeterminate range can | | | | | | reflect a pre-infarct | | | | | | acute coronary | | | | | | syndrome, but can also | | | | | | reflect myocardial | | | | | | necrosis or injury | | | | | | that is not due to | | | | | | coronary artery | | | | | | disease. Some of these | | | | | | causes are sepsis, | | | | | | hypocolemia, atrial | | | | | | fibrillation, heart | | | | | | failure, pulmonary | | | | | | embolism, myocarditis, | | | | | | myocardial contusion, | | | | | | and renal failure. | | | | | | Testing performed on | | | | | | the Javid Kittitas | | | | | | Access Analyzer. | | | | + + + + + + + + | Specimen | + + | | + + + + + + + | Performing | Address | City/State/Zipcode | Phone Number | | Organization | | | | + + + + + | [facility] | [address] | [place] | [phone] | | [facility] | | [address] | | | - LABORATORY | | | | + + + + + | [facility] | [address] | [place] | | | [facility] | | [address], [facility] | | | - LABORATORY | | | | + + + + + CBC with Differential (05/13/2011 3:46 PM PDT) + +---------+ + + + | Component | Value | Ref Range | Performed | Pathologist | | | | | At | Signature | + +---------+ + + + | WBC | 7.4 | 4.0 - 11.0 K/uL | [facility] | | | | | | [facility] | | | | | MEDICAL | | | | | | CENTER - | | | | | | LABORATORY | | + +---------+ + + + | RBC | 4.46 | 4.30 - 5.70 | [facility] | | | | | M/uL | [facility] | | | | | | MEDICAL | | | | | | CENTER - | | | | | | LABORATORY | | + +---------+ + + + | Hemoglobin | 14.2 | 13.5 - 18.0 | [facility] | | | | | gm/dL | [facility] | | | | | | MEDICAL | | | | | | CENTER - | | | | | | LABORATORY | | + +---------+ + + + | Hematocrit | 42.3 | 40.0 - 51.0 % | [facility] | | | | | | [facility] | | | | | | MEDICAL | | | | | | CENTER - | | | | | | LABORATORY | | + +---------+ + + + | MCV | 94.9 | 83.0 - 101.0 fL | [facility] | | | | | | [facility] | | | | | | MEDICAL | | | | | | CENTER - | | | | | | LABORATORY | | + +---------+ + + + | MCH | 31.8 | 28.0 - 35.0 pg | [facility] | | | | | | [facility] | | | | | | MEDICAL | | | | | | CENTER - | | | | | | LABORATORY | | + +---------+ + + + | MCHC | 33.5 | 32.0 - 36.0 | [facility] | | | | | g/dL | [facility] | | | | | | MEDICAL | | | | | | CENTER - | | | | | | LABORATORY | | + +---------+ + + + | RDW-CV | 13.4 | <15.0 % | [facility] | | | | | | [facility] | | | | | | MEDICAL | | | | | | CENTER - | | | | | | LABORATORY | | + +---------+ + + + | Platelet | 127 (L) | 140 - 440 K/uL | [facility] | | | Count | | | [facility] | | | | | | MEDICAL | | | | | | CENTER - | | | | | | LABORATORY | | + +---------+ + + + | % | 62.7 | 45 - 75 % | [facility] | | | Neutrophils | | | [facility] | | | | | | MEDICAL | | | | | | CENTER - | | | | | | LABORATORY | | + +---------+ + + + | % | 28.6 | 20 - 45 % | [facility] | | | Lymphocytes | | | [facility] | | | | | | MEDICAL | | | | | | CENTER - | | | | | | LABORATORY | | + +---------+ + + + | % Monocytes | 7.7 | 4 - 12 % | [facility] | | | | | | [facility] | | | | | | MEDICAL | | | | | | CENTER - | | | | | | LABORATORY | | + +---------+ + + + | % | 0.9 | 0 - 5 % | [facility] | | | Eosinophils | | | [facility] | | | | | | MEDICAL | | | | | | CENTER - | | | | | | LABORATORY | | + +---------+ + + + | % Basophils | 0.1 | 0 - 1 % | [facility] | | | | | | [facility] | | | | | | MEDICAL | | | | | | CENTER - | | | | | | LABORATORY | | + +---------+ + + + | Absolute | 4.6 | 1.5 - 6.6 K/uL | [facility] | | | Neutrophils | | | [facility] | | | | | | MEDICAL | | | | | | CENTER - | | | | | | LABORATORY | | + +---------+ + + + | Absolute | 2.1 | 0.6 - 3.2 K/uL | [facility] | | | Lymphocytes | | | [facility] | | | | | | MEDICAL | | | | | | CENTER - | | | | | | LABORATORY | | + +---------+ + + + | Absolute | 0.6 | 0.0 - 1.0 K/uL | [facility] | | | Monocytes | | | [facility] | | | | | | MEDICAL | | | | | | CENTER - | | | | | | LABORATORY | | + +---------+ + + + | Absolute | 0.1 | 0.0 - 0.4 K/uL | [facility] | | | Eosinophils | | | [facility] | | | | | | MEDICAL | | | | | | CENTER - | | | | | | LABORATORY | | + +---------+ + + + | Absolute | 0.0 | 0.0 - 0.1 K/uL | [facility] | | | Basophils | | | [facility] | | | | | | [...] [address] | [place] | [phone] | | [facility] | | [address] | | | - LABORATORY | | | | + + + + + | [facility] | [address] | [place] | | | [facility] | | [id number] | | | - LABORATORY | | | | + + + + + Comprehensive Metabolic Panel (05/13/2011 3:25 PM PDT) + + + + + + | Component | Value | Ref Range | Performed | Pathologist | | | | | At | Signature | + + + + + + | Glucose | 88 | 70 - 109 mg/dL | [facility] | | | | | | [facility] | | | | | | MEDICAL | | | | | | CENTER - | | | | | | LABORATORY | | + + + + + + | Calcium | 9.5 | 8.3 - 10.5 | [facility] | | | | | mg/dL | [facility] | | | | | | MEDICAL | | | | | | CENTER - | | | | | | LABORATORY | | + + + + + + | Alkaline | 63 | 40 - 110 IU/L | [facility] | | | Phosphatase | | | [facility] | | | | | | MEDICAL | | | | | | CENTER - | | | | | | LABORATORY | | + + + + + + | AST | 33 | 10 - 42 IU/L | [facility] | | | | | | [facility] | | | | | | MEDICAL | | | | | | CENTER - | | | | | | LABORATORY | | + + + + + + | ALT | 26 | 6 - 45 IU/L | [facility] | | | | | | [facility] | | | | | | MEDICAL | | | | | | CENTER - | | | | | | LABORATORY | | + + + + + + | Bilirubin | 0.6 | 0.2 - 1.0 mg/dL | [facility] | | | Total | | | [facility] | | | | | | MEDICAL | | | | | | CENTER - | | | | | | LABORATORY | | + + + + + + | Total | 6.8 | 6.0 - 7.8 gm/dL | [facility] | | | Protein | | | [facility] | | | | | | MEDICAL | | | | | | CENTER - | | | | | | LABORATORY | | + + + + + + | Albumin | 4.1 | 3.2 - 5.0 gm/dL | [facility] | | | | | | [facility] | | | | | | MEDICAL | | | | | | CENTER - | | | | | | LABORATORY | | + + + + + + | BUN | 8 | 7 - 18 mg/dL | [facility] | | | | | | [facility] | | | | | | MEDICAL | | | | | | CENTER - | | | | | | LABORATORY | | + + + + + + | Creatinine | 0.95 | 0.60 - 1.30 | [facility] | | | | | mg/dL | [facility] | | | | | | MEDICAL | | | | | | CENTER - | | | | | | LABORATORY | | + + + + + + | Estimated | >60Comment: For | >60 mL/min/A | [facility] | | | GFR | -Americans, | | [facility] | | | | please multiply the | | MEDICAL | | | | result by 1.210 | | CENTER - | | | | This is an estimated | | LABORATORY | | | | GFR and is based on | | | | | | a standard body | | | | | | mass and serum | | | | | | creatinine | | | | + + + + + + | BUN/Creatin | 8.4 (L) | 12 - 20 | [facility] | | | ine Ratio | | | [facility] | | | | | | MEDICAL | | | | | | CENTER - | | | | | | LABORATORY | | + + + + + + | Na | 143 | 136 - 149 mEq/L | [facility] | | | | | | [facility] | | | | | | MEDICAL | | | | | | CENTER - | | | | | | LABORATORY | | + + + + + + | K | 3.6 | 3.5 - 5.1 mEq/l | [facility] | | | | | | [facility] | | | | | | MEDICAL | | | | | | CENTER - | | | | | | LABORATORY | | + + + + + + | Cl | 109 | 98 - 109 mEq/l | [facility] | | | | | | [facility] | | | | | | MEDICAL | | | | | | CENTER - | | | | | | LABORATORY | | + + + + + + | CO2 | 26 | 24 - 31 mEq/L | [facility] | | | | | | [facility] | | | | | | MEDICAL | | | | | | CENTER - | | | | | | LABORATORY | | + + + + + + | Anion Gap | 11.6 | 6.0 - 17.0 | [facility] | | | [...] + | [facility] | [address] | [place] | [phone] | | [facility] | | [address] | | | - LABORATORY | | | | + + + + + | [facility] | [address] | [place] | | | [facility] | | [id number] | | | - LABORATORY | | | | + + + + + Troponin I (05/13/2011 3:25 PM PDT) + + + + + + | Component | Value | Ref Range | Performed | Pathologist | | | | | At | Signature | + + + + + + | Troponin I | <0.01Comment: Reference | <0.10 ng/mL | [facility] | | | | Ranges: | | [facility] | | | | 0.00-0.09 = NORMAL | | MEDICAL | | | | 0.10-0.50 | | CENTER - | | | | = | | LABORATORY | | | | INDETERMINATE-SUSPICIOUS | | | | | | FOR | | | | | | | | | | | | NON-INFARCT | | | | | | MYOCARDIAL INJURY | | | | | | >0.50 = | | | | | | CONSISTENT WITH | | | | | | MYOCARDIAL INFARCT | | | | | | Results in the | | | | | | Indeterminate range can | | | | | | reflect a pre-infarct | | | | | | acute coronary | | | | | | syndrome, but can also | | | | | | reflect myocardial | | | | | | necrosis or injury | | | | | | that is not due to | | | | | | coronary artery | | | | | | disease. Some of these | | | | | | causes are sepsis, | | | | | | hypocolemia, atrial | | | | | | fibrillation, heart | | | | | | failure, pulmonary | | | | | | embolism, myocarditis, | | | | | | myocardial contusion, | | | | | | and renal failure. | | | | | | Testing performed on | | | | | | the Javid Aldo | | | | | | Access Analyzer. | | | | + + + + + + + + | Specimen | + + | | + + + + + + + | Performing | Address | City/State/Zipcode | Phone Number | | Organization | | | | + + + + + | [facility] | [address] | [place], [place] | [phone] | | [facility] | | [address] | | | - LABORATORY | | | | + + + + + | [facility] | [address] | [place], [place] | | | [facility] | | [address] | | | - LABORATORY | | | | + + + + + XR Chest AP Portable (05/13/2011 3:01 PM PDT) + + | Specimen | + + | | + + + + + | Narrative | Performed At | + + + | [facility] Diagnostic Imaging Department | [facility] | | [address] [facility] | [facility] | | PORTABLE CHEST CLINICAL | DIAG IMG | | HISTORY: TACHYCARDIA. COMPARISON: 12/2009 FINDINGS: | | | Dual chamber cardiac pacemaker is in unchanged position with power | | | pack on the left and le ads to the right atrium and right ventricle. | | | Heart size is normal. Hilar regions and pulmonary vasc ulature | | | are normal. No areas of abnormal lung density are seen. No bony or | | | upper abdominal abnormal ities are present. IMPRESSION: 1. | | | STABLE PACEMAKER POSITION. NO ACUTE CARDIOPULMONARY ABNORMALITY. | | | Dictated Date/Time: 05/13/2011 16:57 Transcribed Date/Time: | | | 05/13/2011 17:06 Manager Icu: <Electronically Signed | | | by Jama Solis MD> 05/13/112038 | | + + + + + | Procedure Note | + + | Kevin, Rad Conversion - 12/29/2013 3:[address] [facility] | | Diagnostic Imaging Department [address] [place] [address] | | PORTABLE CHEST CLINICAL HISTORY: TACHYCARDIA. | | COMPARISON: 12/2009 FINDINGS: Dual chamber cardiac pacemaker is in unchanged position | | with power pack on the left and leads to the right atrium and right ventricle. Heart | | size is normal. Hilar regions and pulmonary vasculature are normal. No areas of | | abnormal lung density are seen. No bony or upper abdominal abnormalities are present. | | IMPRESSION: 1. STABLE PACEMAKER POSITION. NO ACUTE CARDIOPULMONARY ABNORMALITY. | | Dictated Date/Time: 05/13/2011 16:57Transcribed Date/Time: 05/13/2011 | | 17:06Transcriptionist: <Electronically Signed by Jama Solis MD> 05/13/11 | | 2038 | | | |FINDINGS: Dual chamber cardiac pacemaker is in unchanged position with power pack on the l eft and le | |ads to the right atrium and right ventricle. Heart size is normal. Hilar regions and pulm onary vasc | |ulature are normal. No areas of abnormal lung density are seen. No bony or upper abdomina l abnormal | |ities are present. | | | |IMPRESSION: | |1. STABLE PACEMAKER POSITION. NO ACUTE CARDIOPULMONARY ABNORMALITY. | | | |Dictated Date/Time: 05/13/2011 16:57 | |Transcribed Date/Time: 05/13/2011 17:06 | |Manager Icu: | |<Electronically Signed by Jama Solis MD> 05/13/112038 | + + + +---------+ + + | Performing | Address | City/State/Zipcode | Phone Number | | Organization | | | | + +---------+ + + | [place] | | | | | [place] | | | | + +---------+ + + documented in this encounter Visit Diagnoses Not on filedocumented in this encounter"
--- OUTSIDE RECORDS SUMMARY | ~2020-04-13 | XMS | Encounter Summary ---
Demographics + + + | Address | [address] | | | [place] [address] | + + + | Home Phone | | + + + | Preferred Language | Unknown | + + + | Marital Status | | + + + | Holiness Affiliation | 1013 | + + + | Race | Unknown | + + + | Ethnic Group | Unknown | + + + Author + + + | Author | [facility] | | | and [place] | + + + | Organization | [facility] | | [...] Team Providers + +------+ + | Care Citizen Participation Specialist Name | Role | Phone | + +------+ + | Michael Amanda DO | PCP | | + +------+ + Encounter Details +--------+ + + + + | Date | Type | Department | Care Team | Description | +--------+ + + + + | 07/25/ | Abstract | [facility] [place] [facility] | Michael Amanda, | | | 2013 | | [facility] | DO [address] | | | | | [address] | [place] | | | | | [place] | [address] | | | | | [address] | | | | | | [phone] | | | +--------+ + + + [...] | | | | | | [place] [address] | | | | | | [phone] | | | | | | | | +--------+ + + + + | 05/01/ | Procedure | Cardiology | | | | 2019 | visit | | | | +--------+ + + + + | 05/01/ | Office | Cardiology | [place], | | | 2019 | Visit | | PAR[place] [address] | | | | | | [place], | | | | | | [place] [address] | | | | | | [phone] | | | | | | | | +--------+ + + + + | 05/21/ | Implant | Cardiology | Daljit Singletary, | Remote Device | | 2019 | Monitor | | [address] | Interrogation | | | | | [place], | (Primary Dx); | | | | | [place] [address] | Pacemaker; | | | | | [phone] | Sinoatrial node | | | | | | dysfunction (HCC) | | | | | | with symptomatic | | | | | | bradycardia | +--------+ + + + + documented as of this encounter Visit Diagnoses Not on filedocumented in this encounter"
--- OUTSIDE RECORDS SUMMARY | ~2020-04-13 | XMS | Encounter Summary ---
Demographics + + + | Address | [address] | | | [place] [address] | + + + | Home Phone | | + + + | Preferred Language | Unknown | + + + | Marital Status | | + + + | Lutheran Affiliation | 1013 | + + + | Race | Unknown | + + + | Ethnic Group | Unknown | + + + Author + + + | Author | [facility] | | | and [place] | + + + | Organization | [facility] | | [...] Team Providers + +------+ + | Care Plastic Surgery Specialist Name | Role | Phone | [...] | +--------+ + + + + | 04/09/ | Telephone | [facility] [place] | [place], | Other | | 2013 | | CARDIOLOGY [address] | Janeen TILE MACHINE OPERATOR [address] | | | | | [place], | [place], | | | | | [place] [address] | [place] [address] | | | | | [phone] | [phone] | | | | | | | [...] W | | | | | | [place], | | | | | | [place] [address] | | | | | | [phone] | | | | | | | | +--------+ + + + + | 05/01/ | Procedure | Cardiology | | | | 2019 | visit | | | | +--------+ + + + + | 05/01/ | Office | Cardiology | Silvia, | | | 2019 | Visit | | [address] [address] | | | | | | [place], | | | | | | [place] [address] | | | | | | [phone] | | | | | | | | +--------+ + + + + | 05/21/ | Implant | Cardiology | Daljit Singletary, | Remote Device | 2019 | Monitor | | MD [address] [place] | Interrogation | | | | | [place], | (Primary Dx); | | | | | [place] [address] | Pacemaker; | | | | | [phone] | Sinoatrial node | | | | | | dysfunction (HCC) | | | | | | with symptomatic | | | | | | bradycardia | +--------+ + + + + documented as of this encounter Visit Diagnoses Not on filedocumented in this encounter"
--- OUTSIDE RECORDS SUMMARY | ~2020-04-13 | XMS | Encounter Summary ---
Demographics + + + | Address | [address] | | | [place] [address] | + + + | Home Phone | | + + + | Preferred Language | Unknown | + + + | Marital Status | | + + + | Hindu Affiliation | 1013 | + + + | Race | Unknown | + + + | Ethnic Group | Unknown | + + + Author + + + | Author | [facility] | | | and [place] | + + + | Organization | [facility] | | [...] + +------+ + | Care Director Of Math Name | Role | Phone | + [...] 2019 | | GASTROENTEROLOGY | [address], [place] | Syndrome | | | | [address] [place] | [address] [place], [place] | | | | | [address] [place], [place] | [address] | | | | | [address] | | | | | | [phone] | | | +--------+ + + + [...] [place], | | | | | | [place] [address] | | | | | | [phone] | | | | | | | | +--------+ + + + + | 05/01/ | Procedure | Cardiology | | | | 2019 | visit | | | | +--------+ + + + + | 05/01/ | Office | Cardiology | [place], | | | 2019 | Visit | | PARISA [place] [address] | | | | | | [place], | | | | | | [place] [address] | | | | | | [phone] | | | | | | | | +--------+ + + + + | 05/21/ | Implant | Cardiology | Daljit Singletary, | Remote Device | | 2019 | Monitor | | [address] | Interrogation | | | | | [place], | (Primary Dx); | | | | | [place] [address] | Pacemaker; | | | | | [phone] | Sinoatrial node | | | | | | dysfunction ([facility]) | | | | | | with symptomatic | | | | | | bradycardia | +--------+ + + + + documented as of this encounter Visit Diagnoses Not on filedocumented in this encounter"
--- OUTSIDE RECORDS SUMMARY | ~2020-04-13 | XMS | Encounter Summary ---
Demographics + + + | Address | [address] | | | [place] [address] | + + + | Home Phone [...] Team Providers + +------+ + | Care Commercial Collections Specialist Name | Role | Phone | + +------+ + | Kirk French MD | PCP | | + +------+ + Encounter Details +--------+ + + + + | Date | Type | Department | Care Team | Description | +--------+ + + + + | 07/01/ | Hospital | C GENERIC IP | Conversion | Pain | | 2018 | Encounter | CONVERSION DEP [address] | Transaction, | | | | | [address] | Provider Unknown | | | | | [place], [place] | [phone] | | | | | [address] | | | | | | [phone] | | | +--------+ + + + [...] + + + +---------+ + + | Murdock-3 Fatty | CAPS, one capsule by | | 0 | / | | | Acids (SALMON | mouth [...] 1 tablet by | | 0 | /02/08 | | | (REQUIP) 1 mg tablet [...] | | | | | | [place] [address] | | | | | | [phone] | | | | | | | | +--------+ + + + + | 05/01/ | Procedure | Cardiology | | | | 2019 | visit | | | | +--------+ + + + + | 05/01/ | Office | Cardiology | [place], | | | 2019 | Visit | | [address] | | | | | | [place], | | | | | | [place] [address] | | | | | | [phone] | | | | | | | | +--------+ + + + + | 05/21/ | Implant | Cardiology | Daljit Singletary, | Remote Device | 2019 | Monitor | | [address] | Interrogation | | | | | [place], | (Primary Dx); | | | | | [place] [address] | Pacemaker; | | | | | [phone] | Sinoatrial node | | | | | | dysfunction ([facility]) | | | | | | with symptomatic | | | | | | bradycardia | +--------+ + + + + documented as of this encounter Procedures + +--------+ + + + | Procedure Name | Priori | Date/Time | Associated Diagnosis | Comments | | | ty | | | | + +--------+ + + + | CT CERVICAL LUMBAR | Routin | 07/01/2018 | | Results for this | | SPINE W CONTRAST | e | 5:07 PM | | procedure are in the | | | | PDT | | results section. | + +--------+ + + + documented in this encounter Results CT Cervical Lumbar Spine w Contrast (07/01/2018 5:07 PM PDT) + + | Specimen | + + | | + + + + + | Narrative | Performed At | + + + | This is a non-reportable procedure without a radiologist report and | | | is used for image storage only | | + + + + + | Procedure Note | + + | Kalpesh Brown Imani - 07/05/2019 4:32 AM PDT This is a non-reportable procedure | | without a radiologist report and isused for image storage only | + + documented in this encounter Visit Diagnoses + + | Diagnosis | + + | Pain Generalized pain | + + documented in this encounter"
--- OUTSIDE RECORDS SUMMARY | ~2020-04-13 | XMS | Encounter Summary ---
Demographics + + + | Address | [address] | | | [place] [address] | + + + | Home Phone | | + + + | Preferred Language | Unknown | + + + | Marital Status | | + + + | Yarsani Affiliation | 1013 | + + + [...] Team Providers + +------+ + | Care Milk Vendor Name | Role | Phone | + +------+ + PCP | Unavailable | + +------+ + Encounter Details +--------+ + + + + | Date | Type | Department | Care Team | Description | +--------+ + + + + | 02/09/ | Hospital | [facility] | Conversion | | | 2001 | Encounter | CONVERSION | Transaction, | | | | | DEPARTMENT [address] | Provider Unknown | | | | | [address] | | | | | | [place], [place] | (Fax) | | | | | [address] | | | | | | [phone] | | | +--------+ + + + [...] | | | | | | [place] [address] | | | | | | [phone] | | | | | | | | +--------+ + + + + | 05/01/ | Procedure | Cardiology | | | | 2019 | visit | | | | +--------+ + + + + | 05/01/ | Office | Cardiology | [place], | | | 2019 | Visit | | PARISA Vernon [address] | | | | | | [place], | | | | | | [place] [address] | | | | | | [phone] | | | | | | | | +--------+ + + + + | 05/21/ | Implant | Cardiology | Daljit Singletary, | Remote Device | | 2019 | Monitor | | [address] [place] | Interrogation | | | | | [place], | (Primary Dx); | | | | | [place] [address] | Pacemaker; | | | | | [phone] | Sinoatrial node | | | | | | dysfunction (HCC) | | | | | | with symptomatic | | | | | | bradycardia | +--------+ + + + + documented as of this encounter Visit Diagnoses Not on filedocumented in this encounter"
--- OUTSIDE RECORDS SUMMARY | ~2020-04-13 | XMS | Encounter Summary ---
Demographics + + + | Address | [address] | | | [place] [address] | + + + | Home Phone | | + + + | Preferred Language | Unknown | + + + | Marital Status | | + + + | Presybeterian Affiliation | 1013 | + + + [...] Team Providers + +------+ + | Care Entry Level Account Manager Name | Role | Phone | + +------+ + | Kirk French MD | PCP | | + +------+ + Encounter Details +--------+ + + + + | Date | Type | Department | Care Team | Description | +--------+ + + + + | 01/07/ | Hospital | [facility] | Conversion | | | 2017 | Encounter | [facility] | Transaction, | | | | | UL[address]OUND [address] | Provider Unknown | | | | | [address] [facility] [address] | [phone] | | | | | [place] | | | | | | [address] | Kirk French | | | | | [phone] | MD Eva Guidry | | | | | | [address] [place], | | | | | | [place] [address] | | | | | | [phone] | | | | | | | [...] + + + +---------+ + + | Reasnor-3 Fatty | CAPS, one capsule by | | 0 | /20 | | | Acids (SALMON | mouth [...] [place], | | | | | | [place] [address] | | | | | | [phone] | | | | | | | | +--------+ + + + + | 05/01/ | Procedure | Cardiology | | | | 2019 | visit | | | | +--------+ + + + + | 05/01/ | Office | Cardiology | [place], | | | 2019 | Visit | | PARISA [address] | | | | | | [place], | | | | | | [place] [address] | | | | | | [phone] | | | | | | | | +--------+ + + + + | 05/21/ | Implant | Cardiology | Daljit Singletary, | Remote Device | | 2019 | Monitor | | [address] [place] | Interrogation | | | | | [place], | (Primary Dx); | | | | | [place] [address] | Pacemaker; | | | | | [phone] | Sinoatrial node | | | | | | dysfunction (HCC) | | | | | | with symptomatic | | | | | | bradycardia | +--------+ + + + + documented as of this encounter Visit Diagnoses Not on filedocumented in this encounter"
--- OUTSIDE RECORDS SUMMARY | ~2020-04-13 | XMS | Encounter Summary ---
Demographics + + + | Address | [address] | | | [place] [address] | + + + | Home Phone [...] Team Providers + +------+ + | Care Personalized Living Manager Name | Role | Phone | + +------+ + PCP | Unavailable | + +------+ + Encounter Details +--------+ + + + + | Date | Type | Department | Care Team | Description | +--------+ + + + + | 07/20/ | [facility] | [facility] | Hunter Antunez, | | | 2009 - | Encounter | MED CTR MED ONC | [address] | | | | | [address] [place] | [place] | | | 07/24/ | | [place] [address] | [address] | | | 2009 | | [phone] | | | +--------+ + + + [...] | 2020 | | | PARISA Vernon [address] | | | | | | [place], | | | | | | [place] [address] | | | | | | [phone] | | | | | | | | +--------+ + + + + | 05/01/ | Procedure | Cardiology | | | | 2019 | visit | | | | +--------+ + + + + | 05/01/ | Office | Cardiology | [place] | | | 2019 | Visit | | PARISA Vernon [address] | | | | | | [place], | | | | | | [place] [address] | | | | | | [phone] | | | | | | | | +--------+ + + + + | 05/21/ | Implant | Cardiology | Daljit Singletary, | Remote Device | 2019 | Monitor | | MD [address] [place] | Interrogation | | | | | [place], | (Primary Dx); | | | | | [place] [address] | Pacemaker; | | | | | [phone] | Sinoatrial node | | | | | | dysfunction (HCC) | | | | | | with symptomatic | | | | | | bradycardia | +--------+ + + + + documented as of this encounter Visit Diagnoses Not on filedocumented in this encounter"
--- OUTSIDE RECORDS SUMMARY | ~2020-04-13 | XMS | Encounter Summary ---
Demographics + + + | Address | [address] | | | [place] [address] | + + + | Home Phone | | + + + | Preferred Language | Unknown | + + + | Marital Status | | + + + | Muslim Affiliation | 1013 | + + + | Race | Unknown | + + + | Ethnic Group | Unknown | + + + Author + + + | Author | [facility] | | | and [place] | + + + | Organization | [facility] | | [...] Team Providers + +------+ + | Care Compensation And Hris Analyst Name | Role | Phone | + [...] Closed | | Radiology | Diagnoses | | [facility] | | | | | Aneurysmal | [place], | [address] | | | | | dilatation | PARISA Solis | [place], | | | | | ([facility]) | [address] | [place] | | | | | Procedures | [address] | [address] | | | | | ECHO | [place], | Phone: | | | | | Complete | [place] | [phone] | | | | | | [address] | Fax: | | | | | | Phone: | [phone] | | | | | | [phone] | | | | | | | Fax: | | | | | | | [phone] | | +--------+--------+ + + + + Reason for Visit Diagnostic/Screening (Routine) +--------+--------+ + + + + | Status | Reason | Specialty | Diagnoses / | Referred By | Referred To | | | | | Procedures | Contact | Contact | +--------+--------+ + + + + | Closed | | Radiology | Diagnoses | | [facility] | | | | | Aneurysmal | [place], | [address] | | | | | dilatation | PARISA Solis | [place], | | | | | ([facility]) | [address] | [place] | | | | | Procedures | [address] | [address] | | | | | ECHO | [place], | Phone: | | | | | Complete | [place] | [phone] | | | | | | [address] | Fax: | | | | | | Phone: | [phone] | | | | | | [phone] | | | | | | | Fax: | | | | | | | [phone] | | +--------+--------+ + + + + Encounter Details +--------+ + + + + | Date | Type | Department | Care Team | Description | +--------+ + + + + | 11/16/ | Hospital | [facility] | [place], | Aneurysmal | | 2017 | Encounter | MED CTR ECHO [address] | [place], FUSELAGE FRAMER [address] | dilatation (HCC) | | | | [place] | [place], | | | | | [place], [place] [address] | [place] [address] | | | | | [phone] | [phone] | | | | | | | [...] + + + +---------+ + + | Macon-3 Fatty | CAPS, one capsule by | [...] Apply 1 Application | | 0 | 08/22/20 | | | (ZOVIRAX) 5% | topically [...] | | 2020 | | | PARISA Solis [address] | | | | | | [place], | | | | | | [place] [address] | | | | | | [phone] | | | | | | | | +--------+ + + + + | 05/01/ | Procedure | Cardiology | | | | 2019 | visit | | | | +--------+ + + + + | 05/01/ | Office | Cardiology | [place], | | | 2019 | Visit | | PARISA [address] | | | | | | [place], | | | | | | [place] [address] | | | | | | [phone] | | | | | | | | +--------+ + + + + | 05/21/ | Implant | Cardiology | Sydni Singletary, | Remote Device | | 2019 | Monitor | | MD [address] [place] | Interrogation | | | | | [place], | (Primary Dx); | | | | | [place] [address] | Pacemaker; | | | | | [phone] | Sinoatrial node | | | | [...] + | ECHO COMPLETE | Routin | 11/16/2017 | Aneurysmal | Results for this | | | e | 9:54 AM | dilatation (HCC) | procedure are in the | | | | PST | | results section. | + +--------+ + + + documented in this encounter Results ECHO Complete (11/16/2017 9:54 AM PST) + +-------+ + + + | Component | Value | Ref Range | Performed | Pathologist | | | | | At | Signature | + +-------+ + + + | LVEF-TTE | 65 | | [facility] | | | TRANSTHORAC | | | | | | IC ECHO | | | | | + +-------+ + + + + + | Specimen | + + | | + + + +-- + | Narrative | P erformed At | + +-- + | Transthoracic | [facility] | | Echocardiography Report (TTE) Demographics Patient Name VICTOR HUGO | | | MOE Room Number SARAH Patient | | | [id number] Date of Study 11/16/2017 Number | | | Visit Number [id number] | | | Referring Physician GURJIT TROY Number | | | NORMA SOLIS Date | | | of 1960 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 Top normal left atrial size.2. Normal left | | | ventricular size, wall thickness and motion. Preserved leftventricular | | | systolic function. LVEF is 65-70%.3. Grade 1 left ventricular | | | diastolic dysfunction.4. Pacemaker lead in right ventricle.5. Normal | | | right-sided pressure.6. Normal valvular structure.7. Mild ascending | | | aortic dilatation measuring 4.3 cm in diameter. Aorticroot measured | | | 3.9 cm in diameter.8. Normal IVC with normal respiratory collapse. | | | Signature | | | | | | PM | | | -------- FindingsMitral ValveMitral valve appears structurally and | | | functionally normal.Trace mitral regurgitation.Aortic ValveAortic | | | valve is trileaflet without significant stenosis or | | | regurgitation.Tricuspid ValveStructurally normal tricuspid valve | | | without significant stenosis orregurgitation.Pulmonic | | | ValveStructurally normal pulmonic valve without significant stenosis | | | orregurgitation.Left AtriumThe left atrium is mildly dilated.Left | | | VentricleLeft ventricle is normal in size and function. Ejection | | | fraction isestimated at 65-70 %.Impaired relaxation compatible with | | | diastolic dysfunction (reversed E/Aratio).Right AtriumNormal right | | | atrial size.Right VentricleNormal right ventricular size.Right | | | ventricle global systolic function is normal.TAPSE = 1.7 cm.Pacer Wire | | | visualized in right ventricle.Pericardial EffusionNo evidence of | | | pericardial effusion.Pleural EffusionNo evidence of pleural | | | effusion.MiscellaneousMild ascending aortic dilatation measuring 4.3 | | | cm in diameter. Aortic rootmeasured 3.9 cm in diameter.The IVC appears | | | normal.IVC respiratory change in dimension > 50%. Valves Mitral | | | Valve Peak E-Wave: 0.51 m/s Peak A-Wave: 0.56 m/s Tissue Doppler | | | Septal e' Velocity: 0.11 m/s Aortic Valve Tricuspid Valve TR | | | Velocity: 2.26 m/s Structures Left Atrium LA A/P Dimension: 4.16 cm | | | LA Area: 17.06 cm^2 LA Vol/BSA Index: | | | 20 mL/m^2 LA Volume: 46.33 ml | | | EF | | | [id number]% Left Ventricle Diastolic Dimension: 5.12 cm | | | Systolic Dimension: 2.63 cm Septum Diastolic: 1.14 cm PW Diastolic: | | | 1.35 cm EF Calculated: 79.72% Miscellaneous Aorta Aortic Root: 3.93 | | | cm Ascending Aorta: 4.32 cm | | | | | | | | |Findings | | |Mitral Valve | | |Mitral valve appears structurally and functionally normal. | | |Trace mitral regurgitation. | | |Aortic Valve | | |Aortic valve is trileaflet without significant stenosis or regurgitation. | | |Tricuspid Valve | | |Structurally normal tricuspid valve without significant stenosis or | | |regurgitation. | | |Pulmonic Valve | | |Structurally normal pulmonic valve without significant stenosis or | | |regurgitation. | | |Left Atrium | | |The left atrium is mildly dilated. | | |Left Ventricle | | |Left ventricle is normal in size and function. Ejection fraction is | | |estimated at 65-70 %. | | |Impaired relaxation compatible with diastolic dysfunction (reversed E/A | | |ratio). | | |Right Atrium | | |Normal right atrial size. | | |Right Ventricle | | |Normal right ventricular size. | | |Right ventricle global systolic function is normal. | | |TAPSE = 1.7 cm. | | |Pacer Wire visualized in right ventricle. | | |Pericardial Effusion | | |No evidence of pericardial effusion. | | |Pleural Effusion | | |No evidence of pleural effusion. | | |Miscellaneous | | |Mild ascending aortic dilatation measuring 4.3 cm in diameter. Aortic root | | |measured 3.9 cm in diameter. | | |The IVC appears normal. | | |IVC respiratory change in dimension > 50%. | | | | | |Valves | | | | | | Mitral Valve | | | | | | Peak E-Wave: 0.51 m/s | | | Peak A-Wave: 0.56 m/s | | | | | | Tissue Doppler | | | | | | Septal e' Velocity: 0.11 m/s | | | | | | Aortic Valve | | | | | | Tricuspid Valve | | | | | | TR Velocity: 2.26 m/s | | | | | |Structures | | | | | | Left Atrium | | | | | | LA A/P Dimension: 4.16 cm LA Area: 17.06 cm^2 | | | LA Vol/BSA Index: 20 mL/m^2 LA Volume: 46.33 ml | | | EF Hemgwonid39% | | | | | | Left Ventricle | | | | | | Diastolic Dimension: 5.12 cm Systolic Dimension: 2.63 cm | | | Septum Diastolic: 1.14 cm | | | PW Diastolic: 1.35 cm | | | EF Calculated: 79.72% | | | | | | Miscellaneous | | | | | | Aorta | | | | | | Aortic Root: 3.93 cm | | | Ascending Aorta: 4.32 cm | | | | | + +-- + + + | Procedure Note | + + | Kalpesh Brown Results In - 11/16/2017 1:48 PM PST Transthoracic Echocardiography Report | | (TTE) Demographics Patient Name VICTOR HUGO BARRY Room Number SARAH | | Patient [id number] Date of Study 11/16/2017 Number Visit Number | | [id number] Referring Physician GURJIT TROY | | Number RHANGELIA SOLIS Date of | | 1960 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 Top normal left atrial size.2. Normal left ventricular size, | | wall thickness and motion. Preserved leftventricular systolic function. LVEF is | | 65-70%.3. Grade 1 left ventricular diastolic dysfunction.4. Pacemaker lead in right | | ventricle.5. Normal right-sided pressure.6. Normal valvular structure.7. Mild ascending | | aortic dilatation measuring 4.3 cm in diameter. Aorticroot measured 3.9 cm in | | diameter.8. Normal IVC with normal respiratory | | collapse.Signature | | ------ Electronically signed by SYDNI SINGLETARY MD(Interpreting physician) on | | 11/16/2017 01:48 | | PM FindingsMi | | tral ValveMitral valve appears structurally and functionally normal.Trace mitral | | regurgitation.Aortic ValveAortic valve is trileaflet without significant stenosis or | | regurgitation.Tricuspid ValveStructurally normal tricuspid valve without significant | | stenosis orregurgitation.Pulmonic ValveStructurally normal pulmonic valve without | | significant stenosis orregurgitation.Left AtriumThe left atrium is mildly dilated.Left | | VentricleLeft ventricle is normal in size and function. Ejection fraction isestimated at | | 65-70 %.Impaired relaxation compatible with diastolic dysfunction (reversed | | E/Aratio).Right AtriumNormal right atrial size.Right VentricleNormal right ventricular | | size.Right ventricle global systolic function is normal.TAPSE = 1.7 cm.Pacer Wire | | visualized in right ventricle.Pericardial EffusionNo evidence of pericardial | | effusion.Pleural EffusionNo evidence of pleural effusion.MiscellaneousMild ascending | | aortic dilatation measuring 4.3 cm in diameter. Aortic rootmeasured 3.9 cm in | | diameter.The IVC appears normal.IVC respiratory change in dimension > 50%.Valves Mitral | | Valve Peak E-Wave: 0.51 m/s Peak A-Wave: 0.56 m/s Tissue Doppler Septal e' Velocity: | | 0.11 m/s Aortic Valve Tricuspid Valve TR Velocity: 2.26 m/sStructures Left Atrium LA A/P | | Dimension: 4.16 cm LA Area: 17.06 cm^2 LA Vol/BSA Index: 20 mL/m^2 | | LA Volume: 46.33 ml | | EF Bwqaqxafi24% Left Ventricle Diastolic Dimension: 5.12 cm Systolic Dimension: | | 2.63 cm Septum Diastolic: 1.14 cm PW Diastolic: 1.35 cm EF Calculated: 79.72% | | Miscellaneous Aorta Aortic Root: 3.93 cm Ascending Aorta: 4.32 cm | |2. Normal left ventricular size, wall thickness and motion. Preserved left | |ventricular systolic function. LVEF is 65-70%. | |3. Grade 1 left ventricular diastolic dysfunction. | |4. Pacemaker lead in right ventricle. | |5. Normal right-sided pressure. | |6. Normal valvular structure. | |7. Mild ascending aortic dilatation measuring 4.3 cm in diameter. Aortic | |root measured 3.9 cm in diameter. | |8. Normal IVC with normal respiratory collapse. | | | |Signature | | | | Electronically signed by SYDNI SINGLETARY MD(Interpreting physician) on | | 11/16/2017 01:48 PM | | | | | |Findings | |Mitral Valve | |Mitral valve appears structurally and functionally normal. | |Trace mitral regurgitation. | |Aortic Valve | |Aortic valve is trileaflet without significant stenosis or regurgitation. | |Tricuspid Valve | |Structurally normal tricuspid valve without significant stenosis or | |regurgitation. | |Pulmonic Valve | |Structurally normal pulmonic valve without significant stenosis or | |regurgitation. | |Left Atrium | |The left atrium is mildly dilated. | |Left Ventricle | |Left ventricle is normal in size and function. Ejection fraction is | |estimated at 65-70 %. | |Impaired relaxation compatible with diastolic dysfunction (reversed E/A | |ratio). | |Right Atrium | |Normal right atrial size. | |Right Ventricle | |Normal right ventricular size. | |Right ventricle global systolic function is normal. | |TAPSE = 1.7 cm. | |Pacer Wire visualized in right ventricle. | |Pericardial Effusion | |No evidence of pericardial effusion. | |Pleural Effusion | |No evidence of pleural effusion. | |Miscellaneous | |Mild ascending aortic dilatation measuring 4.3 cm in diameter. Aortic root | |measured 3.9 cm in diameter. | |The IVC appears normal. | |IVC respiratory change in dimension > 50%. | | | |Valves | | | | Mitral Valve | | | | Peak E-Wave: 0.51 m/s | | Peak A-Wave: 0.56 m/s | | | | Tissue Doppler | | | | Septal e' Velocity: 0.11 m/s | | | | Aortic Valve | | | | Tricuspid Valve | | | | TR Velocity: 2.26 m/s | | | |Structures | | | | Left Atrium | | | | LA A/P Dimension: 4.16 cm LA Area: 17.06 cm^2 | | LA Vol/BSA Index: 20 mL/m^2 LA Volume: 46.33 ml | | EF Tgzhmyqnf36% | | | | Left Ventricle | | | | Diastolic Dimension: 5.12 cm Systolic Dimension: 2.63 cm | | Septum Diastolic: 1.14 cm | | PW Diastolic: 1.35 cm | | EF Calculated: 79.72% | | | | Miscellaneous | | | | Aorta | | | | Aortic Root: 3.93 cm | | Ascending Aorta: 4.32 cm | + + + +---------+ + + | Performing | Address | City/State/Zipcode | Phone Number | | Organization | | | | + +---------+ + + | [facility] | | | | + +---------+ + + documented in this encounter Visit Diagnoses + + | Diagnosis | + + | Aneurysmal dilatation (HCC) Aneurysm of unspecified site | + + documented in this encounter"
--- OUTSIDE RECORDS SUMMARY | ~2020-04-13 | XMS | Encounter Summary ---
Demographics + + + | Address | [address] | | | [place] [address] | + + + | Home Phone [...] Team Providers + +------+ + | Care Marketing Traffic Manager Name | Role | Phone | + +------+ + | Kirk French MD | PCP | | + +------+ + Encounter Details +--------+ + + + + | Date | Type | Department | Care Team | Description | +--------+ + + + + | 08/24/ | Abstract | [facility] | [place], | | | 2016 | | CARDIOLOGY [address] | PARISA Vernon [address] | | | | | [place], | [place], | | | | | [place] [address] | [place] [address] | | | | | [phone] | [phone] | | | | | | | [...] [address] | | | | | | [place], | | | | | | [place] [address] | | | | | | [phone] | | | | | | | | +--------+ + + + + | 05/01/ | Procedure | Cardiology | | | | 2019 | visit | | | | +--------+ + + + + | 05/01/ | Office | Cardiology | [place], | | | 2019 | Visit | | PARISA [address] | | | | | | [place], | | | | | | [place] [address] | | | | | | [phone] | | | | | | | | +--------+ + + + + | 05/21/ | Implant | Cardiology | Daljit Singletary, | Remote Device | 2019 | Monitor | | MD [address] [place] | Interrogation | | | | | [place], | (Primary Dx); | | | | | [place] [address] | Pacemaker; | | | | | [phone] | Sinoatrial node | | | | | | dysfunction (HCC) | | | | | | with symptomatic | | | | | | bradycardia | +--------+ + + + + documented as of this encounter Visit Diagnoses Not on filedocumented in this encounter"
--- OUTSIDE RECORDS SUMMARY | ~2020-04-13 | XMS | Encounter Summary ---
Demographics + + + | Address | [address] | | | [place] [address] | + + + | Home Phone [...] Team Providers + +------+ + | Care Pattern Chain Maker Supervisor Name | Role | Phone | [...] | Radiology | Diagnoses | Gemini | [facility] | | | | | Chest pain, | MD Daljit | Medicine | | | | | unspecified | [address] | [address] | | | | | type | [address] | [place], | | | | | Procedures | [place], | [place] | | | | | [place] | [place] [address] | [address] | | | | | Stress Test | Phone: | Phone: | | | | | (Vasodilator | [phone] | [phone] | | | | | ) CHG | Fax: | Fax: | | | | | MYOCARDIAL | [phone] | [phone] | | | | | SPECT | | | | | | | MULTIPLE | | | | | | | STUDIES [place] | | | | | | | CV STRS TST | | | | | | | XERS&/OR RX | | | | | | | CONT ECG W/O | | | | | | | I&R [place] | | | | | | | CARDIAC | | | | | | | STRESS | | | | | | | TST,INTERP/R | | | | | | | EPT ONLY | | | +--------+--------+ + + + + Reason for Visit Diagnostic/Screening (Routine) +--------+--------+ + + + + | Status | Reason | Specialty | Diagnoses / | Referred By | Referred To | | | | | Procedures | Contact | Contact | +--------+--------+ + + + + | Closed | | Radiology | Diagnoses | Gemini, | [facility] | | | | | Chest pain, | MD Daljit | Medicine | | | | | unspecified | [address] | [address] | | | | | type | [address] | [place], | | | | | Procedures | [place], | [place] | | | | | [place] | [place] [address] | [address] | | | | | Stress Test | Phone: | Phone: | | | | | (Vasodilator | [phone] | [phone] | | | | | ) CHG | Fax: | Fax: | | | | | MYOCARDIAL | [phone] | [phone] | | | | | SPECT | | | | | | | MULTIPLE | | | | | | | STUDIES [place] | | | | | | | CV STRS TST | | | | | | | XERS&/OR RX | | | | | | | CONT ECG W/O | | | | | | | I&R [place] | | | | | | | CARDIAC | | | | | | | STRESS | | | | | | | TST,INTERP/R | | | | | | | EPT ONLY | | | +--------+--------+ + + + + Encounter Details +--------+ + + + + | Date | Type | Department | Care Team | Description | +--------+ + + + + | 07/21/ | Hospital | [facility] | Daljit Singletary, | Chest pain, | | 2018 | Encounter | MED CTR NUCLEAR | MD [address] | unspecified type | | | | MEDICINE [address] [place], | | | | | [place] | [place] [address] | | | | | [place] [address] | [phone] | | | | | [phone] | | | | | | | Trust ClerkPavel | | +--------+ + + + + [...] + + + +---------+ + + | Clyde-3 Fatty | CAPS, one capsule by | [...] | | | | | | [place] [address] | | | | | | [phone] | | | | | | | | +--------+ + + + + | 05/01/ | Procedure | Cardiology | | | | 2019 | visit | | | | +--------+ + + + + | 05/01/ | Office | Cardiology | Silvia, | | | 2019 | Visit | | [address] | | | | | | [address] [place], | | | | | | [place] [address] | | | | | | [phone] | | | | | | | | +--------+ + + + + | 05/21/ | Implant | Cardiology | Daljit Singletary, | Remote Device | 2019 | Monitor | | [address] | Interrogation | | | | | [place], | (Primary Dx); | | | | | [place] [address] | Pacemaker; | | | | | [phone] | Sinoatrial node | | | | [...] | + +--------+ + + + | NM NUCLEAR STRESS | Routin | 07/21/2018 | Chest pain, | Results for this | | TEST (PHARMACOLOGIC | e | 12:25 PM | unspecified type | procedure are in the | | - VASODILATOR) | | PDT | | results section. | + +--------+ + + + documented in this encounter Results NM Nuclear Stress Test (Vasodilator) (07/21/2018 12:25 PM PDT) + +--------+ + + + | Component | Value | Ref Range | Performed | Pathologist | | | | | At | Signature | + +--------+ + + + | BASELINE | 74 | bpm | [facility] | | | HEART RATE | | | | | + +--------+ + + + | BASELINE | 136/93 | mmHg | [facility] | | | BLOOD | | | | | | PRESSURE | | | | | + +--------+ + + + | PEAK HEART | 79 | | [facility] | | | RATE | | | | | + +--------+ + + + | PEAK BLOOD | 143/88 | mmHG | [facility] | | | PRESSURE | | | | | + +--------+ + + + | Target HR | 137 | | [facility] | | + +--------+ + + + | Percent HR | 49 | | [facility] | | + +--------+ + + + | LVEF-SPECT | 64 | % | [facility] | | | NUCLEAR | | | | | | STRESS/VIAB | | | | | | ILITY | | | | | + +--------+ + + + + + | Specimen | + + | | + + + + + | Narrative | Performed At | + + + | 1. | [facility] | | Regadenoson EKG is negative.2. Normal Regadenoson sestamibi | | | myocardial perfusion study. Normal left ventricular size, wall | | | thickness and motion. Preserved left ventricular systolic function. | | | LVEF by gated SPECT is 64%. | | + + + + +---------+ + + | Performing | Address | City/State/Zipcode | Phone Number | | Organization | | | | + +---------+ + + | [facility] | | | | + +---------+ + + documented in this encounter Visit Diagnoses + + | Diagnosis | + + | Chest pain, unspecified type | + + documented in this encounter Administered Medications + +--------+ +--------+------+------+ | Medication Order | MAR | Action | Dose | Rate | Site | | | Action | Date | | | | + +--------+ +--------+------+------+ | regadenoson (LEXISCAN) | Given | 07/21/20 | 0.4 mg | | | | injection 0.4 mg 0.4 mg, | | 18 8:23 | | | | | Intravenous, ONCE PRN, per | | AM PDT | | | | | doctor, Starting [facility] 07/21/18 at | | | | | | | 0822, For 1 dose, Give IV push | | | | | | | over 10 seconds, then follow | | | | | | | immediately with 5 mL saline | | | | | | | flush., Nuclear Medicine | | | | | | + +--------+ +--------+------+------+ +---+---+ | | | +---+---+ + +-------+ + +---+---+ | technetium TC-99M sestamibi | Given | 07/21/20 | 10.5 | | | | (CARDIOLITE) injection 10.5 | | 18 8:23 | millicur | | | | millicurie 10.5 millicurie, | | AM PDT | ies | | | | Intravenous, ONCE PRN, Other, | | | | | | | Starting [facility] 07/21/18 at 0822, For | | | | | | | 1 dose, Nuclear Medicine | | | | | | + +-------+ + +---+---+ +---+---+ | | | +---+---+ documented in this encounter"
--- OUTSIDE RECORDS SUMMARY | ~2020-04-13 | XMS | Encounter Summary ---
Demographics + + + | Address | [address] | | | [place] [address] | + + + | Home Phone [...] Team Providers + +------+ + | Care Water Supervisor Name | Role | Phone | [...] | +--------+ + + + + | 01/24/ | Telephone | [facility] | Daljit Singletary, | Other | | 2019 | | CARDIOLOGY [address] | MD [address] [place] | | | | | [place], | [place], | | | | | [place] [address] | [place] [address] | | | | | [phone] | | | | | | | [...] | | | | | | [place], | | | | | | [place] [address] | | | | | | [phone] | | | | | | | | +--------+ + + + + | 05/01/ | Procedure | Cardiology | | | | 2019 | visit | | | | +--------+ + + + + | 05/01/ | Office | Cardiology | Silvia, | | | 2019 | Visit | | [address] | | | | | | [place], | | | | | | [place] [address] | | | | | | [phone] | | | | | | | | +--------+ + + + + | 05/21/ | Implant | Cardiology | Daljit Singletary, | Remote Device | | 2019 | Monitor | | [address] [facility] [place] | Interrogation | | | | | [place], | (Primary Dx); | | | | | [place] [address] | Pacemaker; | | | | | [phone] | Sinoatrial node | | | | | | dysfunction (HCC) | | | | | | with symptomatic | | | | | | bradycardia | +--------+ + + + + documented as of this encounter Visit Diagnoses Not on filedocumented in this encounter"
--- OUTSIDE RECORDS SUMMARY | ~2020-04-13 | XMS | Encounter Summary ---
Demographics + + + | Address | [address] | | | [place] [address] | + + + | Home Phone | | + + + | Preferred Language | Unknown | + + + | Marital Status | | + + + | Islam Affiliation | 1013 | + + + | Race | Unknown | + + + | Ethnic Group | Unknown | + + + Author + + + | Author | [facility] | | | and [place] | + + + | Organization | [facility] | | | [...] Team Providers + +------+ + | Care Miller Distillery Name | Role | Phone | + +------+ + | Kirk French MD | PCP | | + +------+ + Reason for Visit + + + | Reason | Comments | + + + | Blood Pressure | Low reading | + + + Encounter Details +--------+ + + + + | Date | Type | Department | Care Team | Description | +--------+ + + + + | 04/27/ | Telephone | [facility] [place] | [place], | Blood Pressure (Low | | 2017 | | CARDIOLOGY [address] | Janeen, [employer] [address] | reading) | | | | [place], | [place], | | | | | [place] [address] | [place] [address] | | | | | [phone] | [phone] | | | | | | | [...] W | | | | | | [place], | | | | | | [place] [address] | | | | | | [phone] | | | | | | | | +--------+ + + + + | 05/01/ | Procedure | Cardiology | | | | 2019 | visit | | | | +--------+ + + + + | 05/01/ | Office | Cardiology | Silvia, | | | 2019 | Visit | | [address] | | | | | | [place], | | | | | | [place] [address] | | | | | | [phone] | | | | | | | | +--------+ + + + + | 05/21/ | Implant | Cardiology | Daljit Singletary, | Remote Device | | 2019 | Monitor | | [address] [facility] | Interrogation | | | | | [place] [place], | (Primary Dx); | | | | | [place] [address] | Pacemaker; | | | | | [phone] | Sinoatrial node | | | | | | dysfunction (HCC) | | | | | | with symptomatic | | | | | | bradycardia | +--------+ + + + + documented as of this encounter Visit Diagnoses Not on filedocumented in this encounter"
--- OUTSIDE RECORDS SUMMARY | ~2020-04-13 | XMS | Encounter Summary ---
Demographics + + + | Address | [address] | | | [place] [address] | + + + | Home Phone | | + + + | Preferred Language | Unknown | + + + | Marital Status | | + + + | Taoist Affiliation | 1013 | + + + [...] Team Providers + +------+ + | Care Multicut Line Operator Name | Role | Phone | [...] | CARDIOLOGY [address] | [address] [place] | card ) | | | | [place], | [place], | | | | | [place] [address] | [place] [address] | | | | | [phone] | [phone] | | | | | | | [...] W | | | | | | [place], | | | | | | [place] [address] | | | | | | [phone] | | | | | | | | +--------+ + + + + | 05/01/ | Procedure | Cardiology | | | | 2019 | visit | | | | +--------+ + + + + | 05/01/ | Office | Cardiology | Silvia, | | | 2019 | Visit | | [address] | | | | | | [place], | | | | | | [place] [address] | | | | | | [phone] | | | | | | | | +--------+ + + + + | 05/21/ | Implant | Cardiology | Daljit Singletary, | Remote Device | | 2019 | Monitor | | [address] | Interrogation | | | | | [place], | (Primary Dx); | | | | | [place] [address] | Pacemaker; | | | | | [phone] | Sinoatrial node | | | | | | dysfunction (HCC) | | | | | | with symptomatic | | | | | | bradycardia | +--------+ + + + + documented as of this encounter Visit Diagnoses Not on filedocumented in this encounter"
--- OUTSIDE RECORDS SUMMARY | ~2020-04-13 | XMS | Encounter Summary ---
Demographics + + + | Address | [address] | | | [place] [address] | + + + | Home Phone [...] Team Providers + +------+ + | Care Adobe Cq Developer Name | Role | Phone | [...] | | | | CENTER [address] | [address] | (Primary Dx) | | | | [place], [place] | [place], [place] | | | | | [address] | [address] | | | | | [phone] | | | +--------+ + + + [...] + + + +---------+ + + | Charlotte-3 Fatty | CAPS, one capsule by | [...] | | | | | | [place] [address] | | | | | | [phone] | | | | | | | | +--------+ + + + + | 05/01/ | Procedure | Cardiology | | | | 2019 | visit | | | | +--------+ + + + + | 05/01/ | Office | Cardiology | Silvia, | | | 2019 | Visit | | [address] | | | | | | [place], | | | | | | [place] [address] | | | | | | [phone] | | | | | | | | +--------+ + + + + | 05/21/ | Implant | Cardiology | Sydni Singletary, | Remote Device | 2019 | Monitor | | [facility] | Interrogation | | | | | [place], | (Primary Dx); | | | | | [place] [address] | Pacemaker; | | | | | [phone] | Sinoatrial node | | | | | | dysfunction ([facility]) | | | | | | [...] | | n - | | | | | | 2017 | | | [...] | | | FICATI | | | ON? | | | 31/201 | | | 8 | | | 10:39? | | | HODGEN | | | , | | | FREDER | | | ICK | | | W?MRN: | | | | | | [id number] | | | [id number] | | | his | | | [...] | | | ent/60 | | | [id number] | | | -[id number] | | | [...] | | | St. | | | [place] | | | y | | | [...] | | | ext. | | | [address] | | | or go | | [...] | | | M.D. | | | Geological Science Teacher | | | al | | | [...] | | | ? | | | 2017 | | | Collec | | | [...] | | | | | | [employer] | | | | | [...] + | [facility] | [address] | [place] | [phone] | | [facility] | | [address] | | | - LABORATORY | | | | + + + + + Protime INR (06/21/2018 11:44 AM PDT) + + + + + + | Component | Value | Ref Range | Performed | Pathologist | | | | | At | Signature | + + + + + + | Prothrombin | 12.2 | 11.3 - 13.9 | [facility] | | | Time | | seconds | [facility] | | | | [...] + | [facility] | [address] | [place] | [phone] | | [facility] | | [address] | | | - LABORATORY | | [...] | + + + + + | [facility] | [address] | [place] | [phone] | | [facility] | | [address] | | | - LABORATORY | | [...] 16 | 7 - 18 mg/dL | [facility] | | | | | | [facility] | | | | | | MEDICAL | | | | | | CENTER - | | | | | | LABORATORY | | + + + + + + | Creatinine | 0.82 | 0.60 - 1.30 | [facility] | | | | | mg/dL | [facility] | | | | | | MEDICAL | | | | | | CENTER - | | | | | | LABORATORY | | + + + + + + | eGFR if not | >60Comment: GLOMERULAR | >=60 | [facility] | | | | FILTRATION | mL/min/1.73m2 | [facility] | | | [place] | RATE,ESTIMATED | | MEDICAL | | | | mL/min/1.55y0Zmqh than | | CENTER - | | [...] | | Protein | | | [facility] | | [...] | | bulin Ratio | | | [facility] [...] [address] | [place] | [phone] | | [facility] | | [address] | | | - LABORATORY | | [...] | | | | M/uL | [facility] | | | | | | MEDICAL | | | | | | CENTER - | | | | | | LABORATORY | | + +-------+ + + + | Hemoglobin | 17.0 | 13.5 - 18.0 | [facility] | | | | | g/dL | [facility] | | | | [...] | | Eosinophils | | | [facility] | | [...] | Neutrophils | | K/uL | [facility] | | | | | | MEDICAL | | | | | | CENTER - | | | | | | LABORATORY | | + +-------+ + + + | Absolute | 2.10 | 0.60 - 3.20 | [facility] | | | Lymphocytes | | K/uL | [facility] | | | | [...] | Basophils | | K/uL | [facility] | | | | [...] [address] | [place] | [phone] | | [facility] | | [address] | | | - LABORATORY | | [...] + + | [facility] | [address] | [place] | [phone] | | [facility] | | [address] | | | - LABORATORY | | [...] SYDNI | | | | | | ([id number]) on 06/22/2018 | | | | | [...]
--- OUTSIDE RECORDS SUMMARY | ~2020-04-13 | XMS | Encounter Summary ---
Demographics + + + | Address | [address] | | | [place] [address] | + + + | Home Phone [...] Team Providers + +------+ + | Care Dolly Driver Name | Role | Phone | [...] | | | | Sinoatrial | Geri, SPLUNK ARCHITECT | [address] | | | | | node | [address] | [place], | | | | | dysfunction | [place] | [place] | | | | | (HCC) | [place], [place] | [address] | | | | | Coronary | [address] | Phone: | | | | | artery | Phone: | [phone] | | | | | disease | [phone] | Fax: | | | | | involving | Fax: | [phone] | | | | | umkumiut | [phone] | | | | | | coronary | | | | | | | artery of | | | | | | | umkumiut heart | | | | | | [...] | | | | | | Complete CA | | | | | | | ECHO HEART | | | | | | | XTHORACIC,[place] | | | | | | | MPLETE W | | | | | | | DOPPLER CA | | | | | | | [...] | | | | Sinoatrial | Geri, SPLUNK ARCHITECT | [address] | | | | | node | [address] | [place], | | | | | dysfunction | [place] | [place] | | | | | ([facility]) | [place], [place] | [address] | | | | | Coronary | [address] | Phone: | | | | | artery | Phone: | [phone] | | | | | disease | [phone] | Fax: | | | | | involving | Fax: | [phone] | | | | | um[place]ut | [phone] | | | | | | coronary | | | | | | | artery of | | | | | | | umkumiut heart | | | | | | [...] | | | | | | Complete [place] | | | | | | | ECHO HEART | | | | | | | XTHORACIC,[place] | | | | | | | MPLETE W | | | | | | | DOPPLER CA | | | | | | | [...] + + + + | 06/16/ | [facility] | [facility] | Geri Angel, | Sinoatrial node | | 2016 | Encounter | MED CTR ECHO [address] | SPLUNK ARCHITECT [address] | dysfunction (HCC) | | | | [place] | [place], [place] | with symptomatic | | | | [place] [address] | [address] | bradycardia; | | | | [phone] | | Coronary artery | | | | | Juvenal Blake, | disease involving | | | | | Technologist | umkumiut coronary | | | | | | artery of umkumiut | | | | | | heart [...] + + + +---------+ + + | Alloy-3 Fatty | CAPS, one capsule by | [...] W | | | | | | [place], | | | | | | [place] [address] | | | | | | [phone] | | | | | | | | +--------+ + + + + | 05/01/ | Procedure | Cardiology | | | | 2019 | visit | | | | +--------+ + + + + | 05/01/ | Office | Cardiology | Silvia, | | | 2019 | Visit | | [address] | | | | | | [place], | | | | | | [place] [address] | | | | | | [phone] | | | | | | | | +--------+ + + + + | 05/21/ | Implant | Cardiology | Sydni Singletary, | Remote Device | | 2019 | Monitor | | [address] [facility] | Interrogation | | | | | [place], | (Primary Dx); | | | | | [place] [address] | Pacemaker; | | | | | [phone] | Sinoatrial node | | | | [...] involving | | | | | | umkumiut coronary | | | | | | artery of umkumiut | | | | | | heart [...] | | TRANSTHORAC | | | [facility] | | | IC ECHO | | [...] (TTE) Demographics Patient Name VICTOR HUGO | [facility] | | JUPITER Room Number SARAH Patient | [facility] | | [id number] Date of Study 06/16/2016 Number | - IMAGING | | Visit Number [id number] | | | Referring Physician JOSE ARMANDO GARCIA Number Date of 1960 | | | Barrel Straightener LUIS FERNANDO DUARTE Age | | | 56 year(s) Interpreting | | | GURJIT TROY | | | Energy Consultant SYDNI SINGLETARY, | | | Gender | | | Male Nurse Procedure Type of Study TTE | | | procedure: ECHO Complete. Procedure dateDate: 06/16/2016Start: 10:55 | | | AM Technical Quality: Adequate visualizationStudy Location: Echo | | | LabIndications: CAD KOI CORONARY ARTERY 414.01/ I25.10 and | | [...] BARRY Room Number SARAH | | Patient [id number] Date of Study 06/16/2016 Number Visit Number | | [id number] Referring Physician JOSE ARMANDO GARCIA Number | | Date of 1960 Barrel Straightener LUIS FERNANDO DUARTE Age | | 56 year(s) Interpreting GURJIT TROY | | Energy Consultant SYDNI SINGLETARY, | | Gender Male NurseProcedureType of Study TTE | | procedure: ECHO Complete.Procedure dateDate: 06/16/2016Start: 10:55 AMTechnical Quality: | | Adequate visualizationStudy Location: Echo LabIndications: CAD KOI CORONARY ARTERY | | 414.01/ I25.10 and [...] + + | Performing | Address | City/[facility] | Phone Number | | Organization | | | | + + + + + | [facility] | [address] | [place] | [phone] | | [facility] | | [address] | | | - IMAGING | | [...] + + | Coronary artery disease involving umkumiut coronary artery of umkumiut heart without | | angina pectoris | + + | Ascending thoracic aortic aneurysm (HCC) Thoracic aneurysm without mention of rupture | + + documented in this encounter"
--- OUTSIDE RECORDS SUMMARY | ~2020-04-13 | XMS | Encounter Summary ---
Demographics + + + | Address | [address] [place] [address] [address] | | | [place] [address] | + + + | Home Phone | | + + + | Preferred Language | Unknown | + + + | Marital Status | | + + + | Church Affiliation | Unknown | + + + | Race | White | + + + | Ethnic Group | Not or | + + + Author + + + | Author | [facility] | + + + | Organization | [facility] | + + + | Address | Unknown | + + + | Phone | Unavailable | + + + Support + + + + + | Name | Relationship | Address | Phone | + + + + + | Rachel Valencia | [address]IE[address] | [place] | | | | | [address] | | + + + + + Care Team Providers + +------+ + | Care Intelligence Officer Basic Name | Role | Phone | + +------+ + | Darion Holden DO | PCP | | + +------+ + Reason for Visit + + + | Reason | Comments | + + + | Medical Records | | | Review | | + + + Encounter Details +--------+ + + + + | Date | Type | Department | Care Team | Description | +--------+ + + + + | 10/17/ | Abstract | [facility] | Bridgette Rios, | Medical Records | | 2019 | | [facility] [address] | MD [address] | Review | | | | [address] | [facility] [place] | | | | | Mailcode: [place] | [address] | | | | | for Health and | [phone] | | | | | [facility] | | | | | | [place], [place] | | | | | | [address] | | | | | | [phone] | | | +--------+ + + + [...] filedocumented as of this encounter Visit Diagnoses Not on filedocumented in this encounter"
--- OUTSIDE RECORDS SUMMARY | ~2020-04-13 | XMS | Encounter Summary ---
Demographics + + + | Address | [address] | | | [place] [address] | + + + | Home Phone [...] Team Providers + +------+ + | Care Ornamental Rail Installer Name | Role | Phone | [...] | +--------+ + + + + | 07/07/ | Telephone | [facility] [place] | Daljit Singletary, | Appointment | | 2012 | | CARDIOLOGY [address] | MD [address] [place] | | | | | [place], | [place], | | | | | [place] [address] | [place] [address] | | | | | [phone] | | | | | | | [...] W | | | | | | [place], | | | | | | [place] [address] | | | | | | [phone] | | | | | | | | +--------+ + + + + | 05/01/ | Procedure | Cardiology | | | | 2019 | visit | | | | +--------+ + + + + | 05/01/ | Office | Cardiology | Silvia, | | | 2019 | Visit | | [address] | | | | | | [place], | | | | | | [place] [address] | | | | | | [phone] | | | | | | | | +--------+ + + + + | 05/21/ | Implant | Cardiology | Daljit Singletary, | Remote Device | | 2020 | Monitor | | MD [facility] | Interrogation | | | | | [place], | (Primary Dx); | | | | | [place] [address] | Pacemaker; | | | | | [phone] | Sinoatrial node | | | | | | dysfunction (HCC) | | | | | | with symptomatic | | | | | | bradycardia | +--------+ + + + + documented as of this encounter Visit Diagnoses Not on filedocumented in this encounter"
--- OUTSIDE RECORDS SUMMARY | ~2020-04-13 | XMS | Encounter Summary ---
Demographics + + + | Address | [address] | | | [place] [address] | + + + | Home Phone [...] Team Providers + +------+ + | Care Lopper Name | Role | Phone | + [...] + + | 06/25/ | Office | [facility] | [place], | SINUS BRADYCARDIA | | 2013 | Visit | CARDIOLOGY [address] | [address] | (Primary Dx); | | | | [place], | [place], | Symptomatic PVCs; | | | | [place] [address] | [place] [address] | Coronary artery | | | | [phone] | [phone] | disease; | | | | | [...] time, he was admitted over observation at [facility] for a chest pain. Aortogram revealed an [...] needed for Chest pain. 25 tablet 12 Castell-3 Fatty Acids (SALMON OIL-1000 PO) CAPS, one capsule by mouth daily twice daily ONE TOUCH DELICA LANCETS [facility] Check glucose as needed for hypoglycemia 100 [...] HGBEX 16.1 01/25/2014 I reviewed records from [facility] for emergency department visit o n 05/26/2014 [...] attenuation cannot completely be ruled out. D. [facility] 12/25/13, shows non critical coronary artery [...] yard. He is in class I-II of [place] Heart Association funct ional class. There are [...] ventricular arrhythmia performed by Dr. Gambino at [facility] on 01/30/2013. Patient had spontaneous PVCs [...] to go back in 3 days to [place] for an attempt of ablation under general [...] dizziness. He is in class I-II of [place] Heart [employer] functional class. There are no [...] made to ensure accuracy; however, inadvertent computerized pourer crane ladle errors may be pre sent. Electronically signed [...] W | | | | | | [place], | | | | | | [place] [address] | | | | | | [phone] | | | | | | | | +--------+ + + + + | 05/01/ | Procedure | Cardiology | | | | 2019 | visit | | | | +--------+ + + + + | 05/01/ | Office | Cardiology | [place], | | | 2019 | Visit | | [address] | | | | | | [place], | | | | | | [place] [address] | | | | | | [phone] | | | | | | | | +--------+ + + + + | 05/21/ | Implant | Cardiology | Daljit Singletary, | Remote Device | 2019 | Monitor | | [address] [place] | Interrogation | | | | | [place], | (Primary Dx); | | | | | [place] [address] | Pacemaker; | | | | | [phone] | Sinoatrial node | | | | [...] of unspecified type of vessel, | | atka or graft | + + | Hypertension Unspecified essential hypertension | + + | Syncope Syncope and collapse | + + | Hyperlipidemia Other and unspecified hyperlipidemia | + + documented in this encounter
--- OUTSIDE RECORDS SUMMARY | ~2020-04-13 | XMS | Encounter Summary ---
Demographics + + + | Address | [address] | | | [place] [address] | + + + | Home Phone [...] Team Providers + +------+ + | Care Building Coordinator Name | Role | Phone | [...] + + + + | 12/29/ | Telephone | [facility] [place] | Emmanuel Daniel MD | Other | | 2019 | | GASTROENTEROLOGY | [address], [place] | | | | | [address] [place] | [address] [place], [place] | | | | | [address] [place], [place] | [address] | | | | | [address] | | | | | | [phone] | | | +--------+ + + + [...] [place], | | | | | | [place] [address] | | | | | | [phone] | | | | | | | | +--------+ + + + + | 05/01/ | Procedure | Cardiology | | | | 2019 | visit | | | | +--------+ + + + + | 05/01/ | Office | Cardiology | [place], | | | 2019 | Visit | | [address] | | | | | | [place], | | | | | | [place] [address] | | | | | | [phone] | | | | | | | | +--------+ + + + + | 05/21/ | Implant | Cardiology | Daljit Singletary, | Remote Device | | 2019 | Monitor | | [address] [facility] | Interrogation | | | | | [place], | (Primary Dx); | | | | | [place] [address] | Pacemaker; | | | | | [phone] | Sinoatrial node | | | | | | dysfunction (HCC) | | | | | | with symptomatic | | | | | | bradycardia | +--------+ + + + + documented as of this encounter Visit Diagnoses Not on filedocumented in this encounter"
--- OUTSIDE RECORDS SUMMARY | ~2020-04-13 | XMS | Encounter Summary ---
Demographics + + + | Address | [address] | | | [place] [address] | + + + | Home Phone | | + + + | Preferred Language | Unknown | + + + | Marital Status | | + + + | Advent Affiliation | 1013 | + + + | Race | Unknown | + + + | Ethnic Group | Unknown | + + + Author + + + | Author | [facility] | | | and [place] | + + + | Organization | [facility] | | [...] Team Providers + +------+ + | Care Consulting Psychologist Name | Role | Phone | + +------+ + | Michael Amanda DO | PCP | | + +------+ + Reason for Visit +--------+ + | Reason | Comments | +--------+ + | Other | RECORDS | +--------+ + Encounter Details +--------+ + + + + | Date | Type | Department | Care Team | Description | +--------+ + + + + | 09/12/ | Telephone | [facility] [place] | Geri Angel, | Other (RECORDS) | | 2012 | | CARDIOLOGY [address] | EDGER OPERATOR [address] | | | | | [place], | [facility] [place] [facility], [place] | | | | | [place] [address] | [address] | | | | | [phone] | | | +--------+ + + + [...] W | | | | | | [place], | | | | | | [place] [address] | | | | | | [phone] | | | | | | | | +--------+ + + + + | 05/01/ | Procedure | Cardiology | | | | 2019 | visit | | | | +--------+ + + + + | 05/01/ | Office | Cardiology | Silvia, | | | 2019 | Visit | | [address] | | | | | | [place], | | | | | | [place] [address] | | | | | | [phone] | | | | | | | | +--------+ + + + + | 05/21/ | Implant | Cardiology | Daljit Singletary, | Remote Device | 2019 | Monitor | | MD [address] | Interrogation | | | | | [place], | (Primary Dx); | | | | | [place] [address] | Pacemaker; | | | | | [phone] | Sinoatrial node | | | | | | dysfunction (HCC) | | | | | | with symptomatic | | | | | | bradycardia | +--------+ + + + + documented as of this encounter Visit Diagnoses Not on filedocumented in this encounter"
--- OUTSIDE RECORDS SUMMARY | ~2020-04-13 | XMS | Encounter Summary ---
Demographics + + + | Address | [address] | | | [place] [address] | + + + | Home Phone | | + + + | Preferred Language | Unknown | + + + | Marital Status | | + + + | Moravian Affiliation | 1013 | + + + | Race | Unknown | + + + | Ethnic Group | Unknown | + + + Author + + + | Author | [facility] | | | and [place] | + + + | Organization | [facility] | | [...] Team Providers + +------+ + | Care Servomechanism Assembler Name | Role | Phone | + +------+ + | Kirk French MD | PCP | | + +------+ + Encounter Details +--------+ + + + + | Date | Type | Department | Care Team | Description | +--------+ + + + + | 05/04/ | Abstract | [facility] [place] | [place], | | | 2017 | | CARDIOLOGY [address] | [address] | | | | | [place], | [place], | | | | | [place] [address] | [place] [address] | | | | | [phone] | [phone] | | | | | | | [...] W | | | | | | [place], | | | | | | [place] [address] | | | | | | [phone] | | | | | | | | +--------+ + + + + | 05/01/ | Procedure | Cardiology | | | | 2019 | visit | | | | +--------+ + + + + | 05/01/ | Office | Cardiology | [place], | | | 2019 | Visit | | [address] W | | | | | | [place], | | | | | | [place] [address] | | | | | | [phone] | | | | | | | | +--------+ + + + + | 05/21/ | Implant | Cardiology | Daljit Singletary, | Remote Device | 2019 | Monitor | | [address] [place] | Interrogation | | | | | [place], | (Primary Dx); | | | | | [place] [address] | Pacemaker; | | | | | [phone] | Sinoatrial node | | | | [...] + | EXTERNAL LAB: | Routin | 12/31/2016 | | Results for this | | TRIGLYCERIDES | e | 2:13 PM | | procedure are in the | | | | PST | | results section. | + +--------+ + + + | EXTERNAL LAB: | Routin | 12/31/2016 | | Results for this | | CHOLESTEROL, HDL | e | 2:13 PM | | procedure are in the | | | | PST | | results section. | + +--------+ + + + | EXTERNAL LAB: | Routin | 12/31/2016 | | Results for this | | CHOLESTEROL, TOTAL | e | 2:13 PM | | procedure are in the | | | | PST | | results section. | + +--------+ + + + | EXTERNAL LAB: | Routin | 12/31/2016 | | Results for this | | CHOLESTEROL, LDL | e | 2:13 PM | | procedure are in the | | | | PST | | results section. | + +--------+ + + + documented in this encounter Results External Lab: Triglycerides (12/31/2016 2:13 PM PST) + +-------+ + + + | Component | Value | Ref Range | Performed | Pathologist | | | | | At | Signature | + +-------+ + + + | Triglycerid | 118 | 150 | EXTERNAL | | | es, [...] +---------+ + + External Lab: Cholesterol, HDL (12/31/2016 2:13 PM PST) + +-------+ + + + | Component | Value | Ref Range | Performed | Pathologist | | | | | At | Signature | + +-------+ + + + | HDL | 44 | 40 mg/dl | EXTERNAL | | [...] +---------+ + + External Lab: Cholesterol, Total (12/31/2016 2:13 PM PST) + +-------+ + + + | Component | Value | Ref Range | Performed | Pathologist | | | | | At | Signature | + +-------+ + + + | Cholesterol | 162 | 200 mg/dl | EXTERNAL | | [...] +---------+ + + External Lab: Cholesterol, LDL (12/31/2016 2:13 PM PST) + +-------+ + + + | Component | Value | Ref Range | Performed | Pathologist | | | | | At | Signature | + +-------+ + + + | LDL | 94 | 100 | EXTERNAL | | | [...]
--- OUTSIDE RECORDS SUMMARY | ~2020-04-13 | XMS | Encounter Summary ---
Demographics + + + | Address | [address] | | | [place] [address] | + + + | Home Phone [...] Providers + +------+ + | Care Clinical Associate Name | Role | Phone | + +------+ + PCP | Unavailable | + +------+ + Encounter Details +--------+ + + + + | Date | Type | Department | Care Team | Description | +--------+ + + + + | 05/28/ | [facility] | [facility] | Evan Gandara MD | | | 2008 | Encounter | MED CTR LABORATORY | [address] [facility] | | | | | [address] | [place] | | | | | [place] | [address] | | | | | [address] | | | | | | [phone] | | | +--------+ + + + [...] W | | | | | | [place], | | | | | | [place] [address] | | | | | | [phone] | | | | | | | | +--------+ + + + + | 05/01/ | Procedure | Cardiology | | | | 2019 | visit | | | | +--------+ + + + + | 05/01/ | Office | Cardiology | [place] | | | 2019 | Visit | | [address] | | | | | | [place], | | | | | | [place] [address] | | | | | | [phone] | | | | | | | | +--------+ + + + + | 05/21/ | Implant | Cardiology | Daljit Singletary, | Remote Device | 2019 | Monitor | | MD [address] [place] | Interrogation | | | | | [place], | (Primary Dx); | | | | | [place] [address] | Pacemaker; | | | | | [phone] | Sinoatrial node | | | | | | dysfunction (HCC) | | | | | | with symptomatic | | | | | | bradycardia | +--------+ + + + + documented as of this encounter Visit Diagnoses Not on filedocumented in this encounter"
--- OUTSIDE RECORDS SUMMARY | ~2020-04-13 | XMS | Encounter Summary ---
Demographics + + + | Address | [address] | | | [place] [address] | + + + | Home Phone | | + + + | Preferred Language | Unknown | + + + | Marital Status | | + + + | Evangelical Affiliation | 1013 | + + + | Race | Unknown | + + + | Ethnic Group | Unknown | + + + Author + + + | Author | [facility] | | | and [place] | + + + | Organization | [facility] | | [...] Team Providers + +------+ + | Care Insurance Loss Assessor Name | Role | Phone | + +------+ + PCP | Unavailable | + +------+ + Encounter Details +--------+ + + + + | Date | Type | Department | Care Team | Description | +--------+ + + + + | 08/26/ | Hospital | [facility] | | | | 2009 | Encounter | MED CTR LABORATORY | | | | | | [address] [place] | | | | | | [place] | | | | | | [address] | | | | | | [phone] | | | +--------+ + + + [...] | | | | | | [place] [address] | | | | | | [phone] | | | | | | | | +--------+ + + + + | 05/01/ | Procedure | Cardiology | | | | 2019 | visit | | | | +--------+ + + + + | 05/01/ | Office | Cardiology | [place], | | | 2019 | Visit | | [address] [address] | | | | | | [place], | | | | | | [place] [address] | | | | | | [phone] | | | | | | | | +--------+ + + + + | 05/21/ | Implant | Cardiology | Daljit Singletary, | Remote Device | 2019 | Monitor | | [address] | Interrogation | | | | | [place], | (Primary Dx); | | | | | [place] [address] | Pacemaker; | | | | | [phone] | Sinoatrial node | | | | | | dysfunction (HCC) | | | | | | with symptomatic | | | | | | bradycardia | +--------+ + + + + documented as of this encounter Visit Diagnoses Not on filedocumented in this encounter"
--- OUTSIDE RECORDS SUMMARY | ~2020-04-13 | XMS | Encounter Summary ---
Demographics + + + | Address | [address] | | | [place] [address] | + + + | Home Phone [...] Team Providers + +------+ + | Care Catalogue Clerk Name | Role | Phone | + +------+ + | Kirk French MD | PCP | | + +------+ + Encounter Details +--------+ + + + + | Date | Type | Department | Care Team | Description | +--------+ + + + + | 05/12/ | Orders Only | [facility] | Kirk French | | | 2016 | | [address] | | | | | [place], [place] | [address] | | | | | [address] | [place] [address] | | | | | [phone] | [phone] | | | | | | | [...] W | | | | | | [place], | | | | | | [place] [address] | | | | | | [phone] | | | | | | | | +--------+ + + + + | 05/01/ | Procedure | Cardiology | | | | 2019 | visit | | | | +--------+ + + + + | 05/01/ | Office | Cardiology | Silvia, | | | 2019 | Visit | | [address] | | | | | | [place], | | | | | | [place] [address] | | | | | | [phone] | | | | | | | | +--------+ + + + + | 05/21/ | Implant | Cardiology | Daljit Singletary, | Remote Device | 2019 | Monitor | | MD [address] [place] | Interrogation | | | | | [place], | (Primary Dx); | | | | | [place] [address] | Pacemaker; | | | | | [phone] | Sinoatrial node | | | | [...] for this | | | e | 1:43 PM | | procedure are in the | | | | PDT | | results section. | + +--------+ + + + | TSH | Routin | 05/12/2016 | | Results for this | | | e | 1:43 PM | | procedure are in the | | | | PDT | | results section. | + +--------+ + + + | COMPREHENSIVE | Routin | 05/12/2016 | | Results for this | | METABOLIC PANEL | e | 1:43 PM | | procedure are in the | | | | PDT | | results section. | + +--------+ + + + documented in this encounter Results External Lab: CBC (05/12/2016 1:43 PM PDT) + + + + + + | Component | Value | Ref Range | Performed | Pathologist | | | | | At | Signature | + + + + + + | WBC | 7.76 | 3.80 - 11.00 | EXTERNAL | | | | | 10*3/uL | LAB | | + + + + + + | Red Blood | 5.46 | 4.20 - 5.70 | EXTERNAL | | | Cells | | 10*6/uL | LAB | | | Counted | | | | | + + + + + + | Hemoglobin | 17.8 (H) | 13.2 - 17.0 | EXTERNAL | | | | | g/dL | LAB | | + + + + + + | Hematocrit, | 53.2 (H) | 39.0 - 50.0 % | EXTERNAL | | | POC | | | LAB | | + + + + + + | MCV | 97.5 | 80.0 - 100.0 fL | EXTERNAL | | | | | | LAB | | + + + + + + | MCH | 32.5 | 27.0 - 34.0 pg | EXTERNAL | | | | | | LAB | | + + + + + + | MCHC | 33.4 | 32.0 - 35.5 | EXTERNAL | | | | | g/dL | LAB | | + + + + + + | RDW-CV | 42.9 | 37 - 53 fL | EXTERNAL | | | | | | LAB | | + + + + + + | Platelet | 129 (L) | 150 - 400 | EXTERNAL | | | Count | | 10*3/uL | LAB | | | Plasma | | | | | + + + + + + | MPV | 10.7 | fL | EXTERNAL | | | | | | LAB | | + + + + + + | Differentia | AUTOMATED | | EXTERNAL | | | l Type | | | LAB | | + + + + + + | % Segmented | 70.15 | % | EXTERNAL | | | | | | LAB | | | Neutrophils | | | | | + + + + + + | % | 18.67 | % | EXTERNAL | | | Lymphocytes | | | LAB | | + + + + + + | % Monocytes | 9.43 | % | EXTERNAL | | | | | | LAB | | + + + + + + | % | 1.25 | % | EXTERNAL | | | Eosinophils | | | LAB | | + + + + + + | % Basophils | 0.50 | % | EXTERNAL | | | | | | LAB | | + + + + + + | Absolute | 5.44 | 1.90 - 7.40 | EXTERNAL | | | Segmented | | 10*3/uL | LAB | | | Neutrophils | | | | | + + + + + + | Absolute | 1.45 | 1.00 - 3.90 | EXTERNAL | | | Lymphocytes | | 10*3/uL | LAB | | + + + + + + | Absolute | 0.73 | 0.00 - 0.80 | EXTERNAL | | | Monocytes | | 10*3/uL | LAB | | + + + + + + | Absolute | 0.10 | 0.00 - 0.50 | EXTERNAL | | | Eosinophils | | 10*3/uL | LAB | | + + + + + + | Absolute | 0.04Comment: Testing | 0.00 - 0.10 | EXTERNAL | | | Basophils | performed at [facility];[address] | 10*3/uL | LAB | | | | [place] | | | | | | [address];[place] [address] | | | | + + + + + + + + | Specimen | + + | Blood specimen | | (specimen) | + + + +---------+ + + | Performing | Address | City/State/Zipcode | Phone Number | | Organization | | | | + +---------+ + + | EXTERNAL LAB | | | | + +---------+ + + TSH (05/12/2016 1:43 PM PDT) + + + + + + | Component | Value | Ref Range | Performed | Pathologist | | | | | At | Signature | + + + + + + | TSH | 1.15Comment: Testing | 0.45 - 5.10 | EXTERNAL | | | | performed at [facility];[address] | u[iU]/mL | LAB | | | | [address] | | | | | | [place] [address] | | | | + + + [...] + +---------+ + + Comprehensive Metabolic Panel (05/12/2016 1:43 PM PDT) + + + + + + | Component | Value | Ref Range | Performed | Pathologist | | | | | At | Signature | + + + + + + | Na | 141 | 135 - 143 | EXTERNAL | | | | | mmol/L | LAB | | + + + + + + | K | 4.3 | 3.5 - 4.9 | EXTERNAL | | | | | mmol/L | LAB | | + + + + + + | Cl | 107 | 99 - 109 mmol/L | EXTERNAL | | | | | | LAB | | + + + + + + | CO2 | 26 | 23 - 32 mmol/L | EXTERNAL | | | | | | LAB | | + + + + + + | Anion Gap | 12 | 5 - 20 mmol/L | EXTERNAL | | | | | | LAB | | + + + + + + | Glucose, | 91 | 65 - 99 mg/dL | EXTERNAL | | | Fasting | | | LAB | | + + + + + + | BUN | 17 | 8 - 25 mg/dL | EXTERNAL | | | | | | LAB | | + + + + + + | Creatinine | 0.9 | 0.70 - 1.30 | EXTERNAL | | | | | mg/dL | LAB | | + + + + + + | BUN/Creatin | 19 | | EXTERNAL | | | ine Ratio | | | LAB | | + + + + + + | Calcium | 9.6 | 8.5 - 10.5 | EXTERNAL | | | | | mg/dL | LAB | | + + + + + + | Protein, | 6.8 | 6.3 - 8.2 g/dL | EXTERNAL | | | Total | | | LAB | | + + + + + + | Albumin | 4.3 | 3.6 - 5.0 g/dL | EXTERNAL | | | | | | LAB | | + + + + + + | Globulin | 2.5 | 1.3 - 4.9 g/dL | EXTERNAL | | | | | | LAB | | + + + + + + | A/G Ratio | 1.7 | 1.0 - 2.4 | EXTERNAL | | | | | | LAB | | + + + + + + | Bilirubin | 0.9 | 0.1 - 1.5 mg/dL | EXTERNAL | | | Total | | | LAB | | + + + + + + | ALP, | 67 | 35 - 115 U/L | EXTERNAL | | | External | | | LAB | | + + + + + + | AST | 25 | 10 - 45 U/L | EXTERNAL | | | | | | LAB | | + + + + + + | ALT | 41 | 10 - 65 U/L | EXTERNAL | | | | | | LAB | | + + + + + + | Estimated | >60Comment: GFR <60: | mL/min/{1.73_m2 | EXTERNAL | | | GFR | CHRONIC KIDNEY DISEASE, | } | LAB | | | | IF FOUND OVER A 3 MONTH | | | | | | PERIOD. GFR <15: KIDNEY | | | | | | FAILURE. FOR | | | | | | AMERICANS, MULTIPLY THE | | | | | | CALCULATED GFR BY | | | | | | 1.210.Testing performed | | | | | | at [facility];[address] [facility] | | | | | | [facility];[place], [place] | | | | | | [address] | | | | + + + [...]
--- OUTSIDE RECORDS SUMMARY | ~2020-04-13 | XMS | Encounter Summary ---
Demographics + + + | Address | [address] | | | [place] [address] | + + + | Home Phone [...] Team Providers + +------+ + | Care Game Engineer Name | Role | Phone | + +------+ + | Kirk French MD | PCP | | + +------+ + Reason for Visit + + + | Reason | Comments | + + + | Appointment | Needs rescheduled | + + + Encounter Details +--------+ + + + + | Date | Type | Department | Care Team | Description | +--------+ + + + + | 11/26/ | Telephone | [facility] | [place], | Appointment (Needs | | 2017 | | CARDIOLOGY [address] | [place] [address] | rescheduled) | | | | [place], | [place], | | | | | [place] [address] | [place] [address] | | | | | [phone] | [phone] | | | | | | | [...] | | | | | | [place] [address] | | | | | | [phone] | | | | | | | | +--------+ + + + + | 05/01/ | Procedure | Cardiology | | | | 2020 | visit | | | | +--------+ + + + + | 05/01/ | Office | Cardiology | Silvia, | | | 2019 | Visit | | [address] | | | | | | [place], | | | | | | [place] [address] | | | | | | [phone] | | | | | | | | +--------+ + + + + | 05/21/ | Implant | Cardiology | Daljit Singletary, | Remote Device | 2019 | Monitor | | [address] | Interrogation | | | | | [place], | (Primary Dx); | | | | | [place] [address] | Pacemaker; | | | | | [phone] | Sinoatrial node | | | | | | dysfunction (HCC) | | | | | | with symptomatic | | | | | | bradycardia | +--------+ + + + + documented as of this encounter Visit Diagnoses Not on filedocumented in this encounter"
--- OUTSIDE RECORDS SUMMARY | ~2020-04-13 | XMS | Encounter Summary ---
Demographics + + + | Address | [address] | | | [place] [address] | + + + | Home Phone [...] Team Providers + +------+ + | Care Trust Evaluation Supervisor Name | Role | Phone | [...] [address] | | | | | [place], | [place], | | | | | [place] [address] | [place] [address] | | | | | [phone] | [phone] | | | | | | | [...] W | | | | | | [place], | | | | | | [place] [address] | | | | | | [phone] | | | | | | | | +--------+ + + + + | 05/01/ | Procedure | Cardiology | | | | 2019 | visit | | | | +--------+ + + + + | 05/01/ | Office | Cardiology | Silvia, | | | 2019 | Visit | | [address] | | | | | | [place], | | | | | | [place] [address] | | | | | | [phone] | | | | | | | | +--------+ + + + + | 05/21/ | Implant | Cardiology | Daljit Singletary, | Remote Device | | 2019 | Monitor | | [address] [place] | Interrogation | | | | | [place], | (Primary Dx); | | | | | [place] [address] | Pacemaker; | | | | | [phone] | Sinoatrial node | | | | | | dysfunction (HCC) | | | | | | with symptomatic | | | | | | bradycardia | +--------+ + + + + documented as of this encounter Visit Diagnoses Not on filedocumented in this encounter"
--- OUTSIDE RECORDS SUMMARY | ~2020-04-13 | XMS | Encounter Summary ---
Demographics + + + | Address | [address] | | | [place] [address] | + + + | Home Phone [...] Team Providers + +------+ + | Care Electron Microprobe Operator Name | Role | Phone | [...] Description | +--------+--------+ + + + | 10/26/ | Refill | [facility] [place] | Kirk French | Medication Refill | | 2019 | | GASTROENTEROLOGY | [address] | | | | | [address] [place] | [address] | | | | | [address] [place], [place] | [place] [address] | | | | | [address] | [phone] | | | | | [phone] | | | +--------+--------+ + + + [...] | | | | | | [place] [address] | | | | | | [phone] | | | | | | | | +--------+ + + + + | 05/01/ | Procedure | Cardiology | | | | 2019 | visit | | | | +--------+ + + + + | 05/01/ | Office | Cardiology | Silvia, | | | 2019 | Visit | | PARISA Vernon [address] | | | | | | [place], | | | | | | [place] [address] | | | | | | [phone] | | | | | | | | +--------+ + + + + | 05/21/ | Implant | Cardiology | Daljit Singletary, | Remote Device | 2019 | Monitor | | [facility] | Interrogation | | | | | [facility] [place], | (Primary Dx); | | | | | [place] [address] | Pacemaker; | | | | | [phone] | Sinoatrial node | | | | | | dysfunction (HCC) | | | | | | with symptomatic | | | | | | bradycardia | +--------+ + + + + documented as of this encounter Visit Diagnoses Not on filedocumented in this encounter"
--- OUTSIDE RECORDS SUMMARY | ~2020-04-13 | XMS | Encounter Summary ---
Demographics + + + | Address | [address] | | | [place] [address] | + + + | Home Phone [...] Team Providers + +------+ + | Care Floorman Name | Role | Phone | + [...] | | | | CENTER [address] | [address] [place] | | | | | [place], [place] | [place] [address] | | | | | [address] | [phone] | | | | | [phone] | | | +--------+ + + + [...] sent through Care Everywhere.Diarrhea, Unkno wn Cause (Icelandic)documented in this encounter Medications at Time of [...] + + + +---------+ + + | Leopold-3 Fatty | CAPS, one capsule by | [...] | | | | | | | [place] coronary | | | | | | | artery of [place] | | | | | | | [...] W | | | | | | [place], | | | | | | [place] [address] | | | | | | [phone] | | | | | | | | +--------+ + + + + | 05/01/ | Procedure | Cardiology | | | | 2019 | visit | | | | +--------+ + + + + | 05/01/ | Office | Cardiology | Silvia, | | | 2019 | Visit | | [address] | | | | | | [place], | | | | | | [place] [address] | | | | | | [phone] | | | | | | | | +--------+ + + + + | 05/21/ | Implant | Cardiology | Daljit Singletary, | Remote Device | | 2020 | Monitor | | MD [address] [facility] | Interrogation | | | | | [place], | (Primary Dx); | | | | | [place] [address] | Pacemaker; | | | | | [phone] | Sinoatrial node | | | | [...] - | | | | | | 2018 | | | [...] | | | ON?/ | | | 18/ | | | 9 | | | 14:16? | | | HODGEN | | | , | | | FREDER | | | ICK | | | W?MRN: | | | | | | [id number] | | | [id number] | | | riteri | | | [...] | | | St. | | | [place] | | | y | | | [...] | | | St. | | | [place] | | | y | | | [...] | | | St. | | | [place] | | | y H. | | [...] | | | St. | | | [place] | | | y H. | | [...] | | | | | | JULIO CSÉAR. | | | [place] | | | [...] | | | M.D. | | | Fluorescent Lamp Replacer | | | al | | | [...] | | | ent/60 | | | [id number] | | | [id number] | | | [...] | | HISTORY: ABDOMINAL PAIN COMPARISON: CT April 01 and more | | | remote imaging [...] PM CLINICAL HISTORY: ABDOMINAL PAIN COMPARISON: CT April 01 and more | | remote imaging TECHNIQUE: [...] | | | Lavender | | | [facility] | | | Top Tube | | [...] [address] | [place] | [phone] | | [facility] | | [address] | | | - LABORATORY | | [...] | | Top Tube | | | [facility] | [...] [address] | [place] | [phone] | | [facility] | | [address] | | | - LABORATORY | | | | + + + + + Sedimentation Rate (05/09/2019 4:42 PM PDT) + +-------+ + + + | Component | Value | Ref Range | Performed | Pathologist | | | | | At | Signature | + +-------+ + + + | Erythrocyte | 6 | <20 mm/hr | [facility] | | | | | | [facility] | | | Sedimentati | | | MEDICAL | | | on Rate | | | CENTER - | | [...] [address] | [place] | [phone] | | [facility] | | [address] | | | - LABORATORY | | | | + + + + + C-Reactive Protein, High Sensitivity (05/09/2019 4:42 PM PDT) + +-------+ + + + | Component | Value | Ref Range | Performed | Pathologist | | | | | At | Signature | + +-------+ + + + | CRP, High | 1.11 | <=3.00 mg/L | [facility] | | | Sensitive | | | [facility] | | [...] + | [facility] | [address] | [place] | [phone] | | [facility] | | [address] | | | - LABORATORY | | | | + + + + + Lipase (05/09/2019 4:42 PM PDT) + +-------+ + + + | Component | Value | Ref Range | Performed | Pathologist | | | | | At | Signature | + +-------+ + + + | Lipase | 38 | 12 - 53 U/L | [facility] | | | | [...] [address] | [place] | [phone] | | [facility] | | [address] | | | - LABORATORY | | [...] 10 | 9 - 23 mg/dL | [facility] | | | | | | [facility] | | | | | | MEDICAL | | | | | | CENTER - | | | | | | LABORATORY | | + + + + + + | Creatinine | 0.96 | 0.70 - 1.30 | [facility] | [...] | mL/min/1.73m2 | [facility] | | | NICARAGUAN | RATE,ESTIMATED | | MEDICAL | | | | mL/min/1.15b3Jdsv than | | CENTER - | | [...] + | [facility] | [address] | [place] | [phone] | | [facility] | | [address] | | | - LABORATORY | | | | + + + + + CBC with Differential (05/09/2019 4:42 PM PDT) + +-------+ + + + | Component | Value | Ref Range | Performed | Pathologist | | | | | At | Signature | + +-------+ + + + | WBC | 6.5 | 4.0 - 11.0 K/uL | [facility] [...] | | | | | g/dL | [facility] | | | [...] | | Lymphocytes | | K/uL | [facility] | | | | | | MEDICAL | | | | | | CENTER - | | | | | | LABORATORY | | + +-------+ + + + | Absolute | 0.57 | 0.00 - 1.00 | [facility] | | | Monocytes | | K/uL | [facility] [...] | Immature | | K/uL | [facility] | | | Granulocyte | | | MEDICAL | | | s | | | CENTER - | | | | | | LABORATORY | | + +-------+ + + + | % nRBC | 0 | 0 - 2 per 100 | [facility] | | | | | WBCs | [facility] | | | | | | MEDICAL | | | | | | CENTER - | | | | | | LABORATORY | | + +-------+ + + + | Absolute | 0.00 | 0.00 - 0.01 | [facility] | | | nRBC | | K/uL | [facility] | [...] [address] | [place] | [phone] | | [facility] | | [address] | | | - LABORATORY | | | | + + + + + Urinalysis with Microscopic with Culture if Indicated (05/09/2019 2:52 PM PDT) + + + + + + | Component | Value | Ref Range | Performed | Pathologist | | | | | At | Signature | + + + + + + | Color, | Yellow | Light Yellow, | [facility] | | | Urine | | Yellow, Straw | . [facility] | | | | [...] - 1.030 | [facility] | | | [place], | | | [facility] | | [...] + + + + + + | White Blood | 0-2 | 0 - 2 /HPF | [facility] | | | Cells, | | | [facility] | | | Urine | | | MEDICAL | | | | | | CENTER - | | | | | | LABORATORY | | + + + + + + | Red Blood | 0-2 | 0 - 2 /HPF | [facility] | | | Cells, | | | [facility] | | | Urine | | | MEDICAL | | | | | | CENTER - | | | | | | LABORATORY | | + + + + + + | Squamous | 0-2 | 0 - 2 /LPF | [facility] | | | Epithelial | | | [facility] | | | Cells, | | | MEDICAL | | | Urine | | | CENTER - | | | | | | LABORATORY | | + + + + + + | Bacteria, | 1+ (A) | Negative /HPF | [facility] | | | Urine | | | [facility] | | | | | | MEDICAL | | | | | | CENTER - | | | | | | LABORATORY | | + + + + + + | Urine | Urine Culture Not | | [facility] | | | Comment | Indicated | | [facility] | [...] [address] | [place] | [phone] | | [facility] | | [address] | | | - LABORATORY | | [...] iohexol (OMNIPAQUE 350) 350 | Given | 05/09/ | 85 mLs | | | | [...]
--- OUTSIDE RECORDS SUMMARY | ~2020-04-13 | XMS | Encounter Summary ---
Demographics + + + | Address | [address] | | | [place] [address] | + + + | Home Phone [...] Team Providers + +------+ + | Care Sales Coach Name | Role | Phone | + [...] | | | | calculus | | [address] [place] | | | | | Procedures | | [place], [place] | | | | | [place] | | [address] Phone: | | | | | CYSTO/URETER | | [phone] | | | | | O | | Fax: | | | | | W/LITHOTRIPS | | [phone] | | | | | Y &INDWELL [...] + + | 04/13/ | Surgery | [facility] | Matthew Uriarte | Cystoscopy, Left | | 2018 | | MED CTR OR INTRA OP | Dahl, MD [address] | ureteroscopy with | | | | [address] | [place] | laser lithotripsy, | | | | [place] | [address] | Left ureteral stent | | | | [address] | | placement | | | | [phone] | | | +--------+---------+ + + + [...] Care Everywhere.Kidney Stones, Treating: Ureteroscopic Stone Removal (Sammarinese)Stents, Ureteral (Sammarinese)documented in this encounter Medications at Time of [...] 1,000 mg by | | 0 | /08/11 | | | Methylsulfonylmethan | mouth. | [...] + + + +---------+ + + | Passaic-3 Fatty | CAPS, one capsule by | [...] | | | | | | | [place] coronary | | | | | | | artery of [place] | | | | | | | [...] W | | | | | | [place], | | | | | | [place] [address] | | | | | | [phone] | | | | | | | | +--------+ + + + + | 05/01/ | Procedure | Cardiology | | | | 2019 | visit | | | | +--------+ + + + + | 05/01/ | Office | Cardiology | Silvia, | | | 2019 | Visit | | [address] | | | | | | [place], | | | | | | [place] [address] | | | | | | [phone] | | | | | | | | +--------+ + + + + | 05/21/ | Implant | Cardiology | Daljit Singletary, | Remote Device | 2019 | Monitor | | [address] | Interrogation | | | | | [place], | (Primary Dx); | | | | | [place] [address] | Pacemaker; | | | | | [phone] | Sinoatrial node | | | | [...] + + + + | Stone | 20 | % | REFERENCE | | | Calcium | | | LAB [facility] | | | Phosphate | | | - BKR | | [...] | Photograph will follow | | LAB [facility] | | | | under separate cover. | | - BKR | | + + + + + + | CALCULI | CommentComment: | | REFERENCE | | | COMMENT | Physician questions | | LAB [facility] | | | | regarding Calculi | | - BKR | | | | Analysis contact [facility] | | | | | | at:[phone]. | | | | + + + [...] test was developed and | | LAB [facility] | | | | its performance | | - BKR | | | | characteristicsdetermine | | | | | | d by [facility]. It has not | | | | [...] + + | Performed at: 01 - [facility] [address] [facility], | REFERENCE LAB | | [place], [place] [id number] Director [place] Sales: Yeny Rios MD, Phone: | ARSH CASTANON | | [phone] | | + + + + + + + + | Performing | Address | City/State/Zipcode | Phone Number | | Organization | | | | + + + + + | REFERENCE LAB | [address] | [place], [place] | [phone] | | ARSH CASTANON | [facility] | [address] | | + + + + + [...] | Direct | | mg/dl | [facility] | | | | [...] + | [facility] | [address] | [place] | [phone] | | [facility] | | [address] | | | - LABORATORY | | [...] | | | | | M/uL | [facility] | | | [...] + | [facility] | [address] | [place] | [phone] | | [facility] | | [address] | | | - LABORATORY | | [...] [address] | [place] | [phone] | | [facility] | | [address] | | | - LABORATORY | | [...] + | [facility] | [address] | [place] | [phone] | | [facility] | | [address] | | | - LABORATORY | | [...] | mL/min/1.73m2 | [facility] | | | ICELANDIC | RATE,ESTIMATED | | MEDICAL | | | | mL/min/1.20z6Frwn than | | CENTER - | | [...] | 9.5 | 8.7 - 10.4 | [facility] | [...] [address] | [place] | [phone] | | [facility] | | [address] | | | - LABORATORY | | [...] day), First | | | dose on [facility] 04/13/19 at 1400, | | | Start 8 hours after pre-op dose., | | | Post-op/Phase II | | + +---+ | | | + +---+ | albuterol 2.5 mg/3 mL nebulizer | | | solution 2.5 mg 2.5 mg, | | | Nebulization, ONCE PRN, Wheezing, | | | Starting [facility] 04/13/19 at 0917, | | | For [...] HR < 40, | | | Starting [facility] 04/13/19 at 0917, For | | | 2 doses, May repeat one time | | | after 1 min., Recovery/Phase I | | + +---+ | | | + +---+ + +-------+ +--------+---+---+ | ciprofloxacin (CIPRO) tablet | Given | 04/13/20 | 500 mg | | | | 500 mg 500 mg, Oral, ONCE, Talia | | 19 7:35 | | | | | 04/13/19 at 0745, For 1 dose, Give | [...] glucose < 50, | | | Starting Talia 04/13/19 at 0634, | | | Repeat [...] | | | | | | | pvichu-wxo-mbrfw use of at least | | | [...] day), | | | First dose on [facility] 04/13/19 at | | | 2030, [...] | | | | | CONTINUOUS, Starting [facility] 04/13/19 | | AM PDT | | | | | at 0700, TKO., Pre-op | | | | | | + +---------+ +---+---+---+ + +---+ | | | + +---+ | midazolam (VERSED) 1 mg/mL | | | injection 0.5-2 mg 0.5-2 mg, | | | Intravenous, EVERY 5 MIN PRN, | | | Anxiety, or agitation, Starting | | | [facility] 04/13/19 at 0917, Maximum | | | [...]
--- OUTSIDE RECORDS SUMMARY | ~2020-04-13 | XMS | Encounter Summary ---
Demographics + + + | Address | [address] | | | [place] [address] | + + + | Home Phone [...] Team Providers + +------+ + | Care Weather Stripper Name | Role | Phone | [...] | | CARDIOLOGY [address] | [address] | | | | | [place], | [place], | | | | | [place] [address] | [place] [address] | | | | | [phone] | [phone] | | | | | | | [...] W | | | | | | [place], | | | | | | [place] [address] | | | | | | [phone] | | | | | | | | +--------+ + + + + | 05/01/ | Procedure | Cardiology | | | | 2019 | visit | | | | +--------+ + + + + | 05/01/ | Office | Cardiology | Silvia, | | | 2019 | Visit | | [address] | | | | | | [place], | | | | | | [place] [address] | | | | | | [phone] | | | | | | | | +--------+ + + + + | 05/21/ | Implant | Cardiology | Daljit Singletary, | Remote Device | | 2019 | Monitor | | [facility] | Interrogation | | | | | [place] [place], | (Primary Dx); | | | | | [place] [address] | Pacemaker; | | | | | [phone] | Sinoatrial node | | | | | | dysfunction (HCC) | | | | | | with symptomatic | | | | | | bradycardia | +--------+ + + + + documented as of this encounter Visit Diagnoses Not on filedocumented in this encounter"
--- OUTSIDE RECORDS SUMMARY | ~2020-04-13 | XMS | Encounter Summary ---
Demographics + + + | Address | [address] | | | [place] [address] | + + + | Home Phone [...] Team Providers + +------+ + | Care Harness Fitter Name | Role | Phone | + +------+ + | Jacek Holm MD | PCP | | + +------+ + Reason for Visit + + + | Reason | Comments | + + + | Follow-up | | + + + | Chest Pain | | + + + | Hypertension | | + + + | Bradycardia | | + + + Encounter Details +--------+---------+ + + + | Date | Type | Department | Care Team | Description | +--------+---------+ + + + | 04/24/ | Office | [facility] | Silvia, | Symptomatic PVCs | | 2012 | Visit | CARDIOLOGY [address] | [address] | (Primary Dx); CAD; | | | | [place], | [place], | Hyperlipidemia; | | | | [place] [address] | [place] [address] | PACEMAKER, PERMANENT | | | | [phone] | [phone] | - [employer] | | | | | | 06/14/09, SUW | +--------+---------+ + + + Social History [...] + + + | Blood Pressure | 138/98 | 04/24/2013 9:50 AM | | | | | PDT | | + + + + + | Pulse | 78 | 04/24/2013 9:50 AM | regular | | | | PDT | | + + + + + | Temperature | - | - | | + + + + + | Respiratory Rate | 18 | 04/24/2013 9:50 AM | | | | | PDT | | + + + + + | Oxygen Saturation | - | - | | + + + + + | Inhaled Oxygen | - | - | | | Concentration | | | | + + + + + | Weight | 108.9 kg (240 lb) | 04/24/2013 9:50 AM | | | | | PDT | | + + + + + | Height | 193 cm (6' 4") | 04/24/2013 9:50 AM | | | | | PDT | | + + + + + | Body Mass Index | 29.21 | 04/24/2013 9:50 AM | | | | | PDT | | + + + + + documented in this encounter Progress Notes Janeen Ramirez ARNP - 04/24/2013 10:01 AM PDTFormatting of this note might be different f rom the original. Subjective: Cardiology Office Visit Date of Service: 04/24/2013 Patient ID: Moe Sanchez is a 53 y.o. male. HPI Moe Sanchez is a 53 y.o. 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 He is being seen today for follow up on palpitatio ns and recent ablation. He was last seen 02/15/2013 at which time patient had recently been seen on 01/25/2013 by E P specialist. He underwent electrophysiologic study for supraventricular arrhythmia. Kelly gallagher, patient was not able to stay still for ablation despite large amounts of sedation. Phamaster wynn was scheduled to go back in 6 weeks for a reattempts ablation and in the meantime he was started on Cardizem CD 120 mg by mouth once a day for tachycardia. Since that time, patient went back on 04/03/2013 when under general anesthesia, Dr. Gambino was able to proceed with a complete procedure ablation. Procedure was tolerated by the patient well with no immedia te complications. And even after ventricular stimulation there were unable to induce any mo re PVCs. Since that time, patient has been feeling "very very well". He thinks that now he needs to get back in shape by increasing his physical activity, patient says that from his "heart po int of view he feels better than he has had in many months". He hasn't had any more palpita tion episodes, no lightheadedness, no dizziness, no "passing out". He denies any chest pain , chest tightness, shortness of breath at rest or on exertion. Patient Active Problem List Diagnosis Hyperlipidemia BIPOLAR [...] ABUSE, MULTIPLE DEPRESSION Hypoglycemia Symptomatic PVCs Tachycardia Current Outpatient Prescriptions Medication Sig Dispense Refill [...] capsule 6 diphenhydrAMINE (BENADRYL) 25 MG capsule Take 25 [...] 3 MELATONIN TABS, at bedtime as needed metoprolol succinate (TOPROL-XL) 200 MG 24 hr tablet Take 1 tablet by mouth Daily. 30 tablet 6 Bisbee-3 Fatty Acids (SALMON OIL-1000 PO) CAPS, one capsule by mouth daily twice daily oxyCODONE (ROXICODONE) 30 MG immediate release tablet Take 30 mg by mouth every 4 hours as needed. oxyCODONE 10 MG TABS Take 5-10 mg by mouth every 4 hours as needed. pravastatin (PRAVACHOL) 40 MG tablet Take 1 tablet by mouth nightly. 90 tablet 3 promethazine (PHENERGAN) 25 mg tablet Take 25 mg by mouth every 8 hours as needed. UNCODED MEDICATION Diagnosis: Obstructive Sleep Apnea ICD-9: 327.23 Length of Need: 99 Months 1 Device 0 valACYclovir (VALTREX) 500 mg tablet Take one by mouth every 12 hours for 3 days, then once daily thereafter. Allergies Allergen Reactions Alcohol-Fentanyl Clarithromycin Duloxetine Hydrocodone Penicillins Tramadol Hcl Review of Systems Constitutional: Negative for activity change (He has started increasing his physical activi ty now that his palpitations are gone), fatigue and unexpected weight change. HENT: Negative for congestion. Eyes: Negative. Respiratory: Negative for chest tightness and shortness of breath. Cardiovascular: Negative for chest pain, palpitations and leg swelling. Gastrointestinal: Negative for nausea, vomiting, abdominal pain and abdominal distention. Genitourinary: Negative. Neurological: Negative for dizziness, syncope, weakness and light-headedness. Hematological: Negative. Psychiatric/Behavioral: Negative for agitation. The patient is not nervous/anxious (much im proved after palpitations have gone away). Objective: Physical Exam Constitutional: He is oriented [...] not exh ibit a depressed mood. BP 138/98 | Pulse 78 | Resp 18 | Ht 1.93 m (6' 4") | Wt 108.863 kg (240 lb) | BMI 29.21 kg/ m2 ECG: Normal sinus rhythm, heart rate 74 beats per minute A-paced, no ST-T acute changes see n LAB: not applicable Reviewed records from PCP and notes from [facility]. Assessment: 1. Symptomatic PVCs status post ablation: [...] ventricular arrhythmia performed by Dr. Gambino at [facility] on 01/30/2013. Patient had spontaneous [...] to go back in 3 days to [place] for an attempt of ablation under general [...] any more PVCs. D. Today patient reports a total resolve of his symptoms and palpitations. He is upgraded to class I of [place] [employer] functional class. There are no signs or symptoms of overt congestive heart failure. There is no fluid retention on physical examination. Pham ent continues on diltiazem and metoprolol. He has a followup appointment in [address] Juan Diego Gambino. 2. Chest pain. A. Normal exercise sestamibi stress test on 05/25/09. LVEF by gated SPECT was 53 %. B. Echocardiogram from 02/08/13 shows a Mild left atrial dilatation. A [...] pacemaker implantation on 06/14/[address] Daljit carmona. C. His device interrogation in last visit shows normal and stable function. H e is to next in office device interrogation will be in 6 months. 4. Hypertension. A. Today blood pressure is well controlled. 5. Lightheadedness and dizziness/ presyncope: A. Episode of presyncope 05/28/10 evaluated in the emergency department, thought to have vasovagal symptoms. B.Today patient has no further lightheadedness dizziness or syncope. 6. History of cigarette smoking. 7. Bipolar disease with anxiety/depression Plan: 1. Continue same therapeutic medical regimen. Patient has an appointment with Dr. Gambino in 2 weeks where according to patient, he might be discontinuing the Diltiazem. 2. Follow up appointment in 6 months with in office device interrogation. IJaneen ARNP, saw this patient under the direct supervision of Daljit Singletary MD Portions of this report were transcribed using voice recognition software. Every effort wa s made to ensure accuracy; however, inadvertent computerized jewelry inspector errors may be pre sent. documented in this encounter Plan of Treatment +--------+ + + + + | Date | Type | Specialty | Care Team | Description | +--------+ + + + + | 05/01/ | Appointment | Radiology | Silvia, | | | 2019 | | | [address] | | | | | | [place], | | | | | | [place] [address] | | | | | | [phone] | | | | | | | | +--------+ + + + + | 05/01/ | Procedure | Cardiology | | | | 2019 | visit | | | | +--------+ + + + + | 05/01/ | Office | Cardiology | Silvia, | | | 2019 | Visit | | [address] | | | | | | [place], | | | | | | [place] [address] | | | | | | [phone] | | | | | | | | +--------+ + + + + | 05/21/ | Implant | Cardiology | Daljit Singletary, | Remote Device | | 2019 | Monitor | | [facility] | Interrogation | | | | | [place], | (Primary Dx); | | | | | [place] [address] | Pacemaker; | | | | | [phone] | Sinoatrial node | | | | | | dysfunction (HCC) | | | | | | with symptomatic | | | | | | bradycardia | +--------+ + + + + documented as of this encounter Visit Diagnoses + + | Diagnosis | + + | Symptomatic PVCs - Primary Other premature beats | + + | CAD Coronary atherosclerosis of unspecified type of vessel, assinibo[place] and [place] tribes or graft | + + | Hyperlipidemia Other and unspecified hyperlipidemia | + + | PACEMAKER, PERMANENT - [employer] 06/14/09GRANT Cardiac pacemaker in situ | + + documented in this encounter
--- OUTSIDE RECORDS SUMMARY | ~2020-04-13 | XMS | Encounter Summary ---
Demographics + + + | Address | [address] | | | [place] [address] | + + + | Home Phone | | + + + | Preferred Language | Unknown | + + + | Marital Status | | + + + | Religion Affiliation | 1013 | + + + [...] Providers + +------+ + | Care Long Term Care Phlebotomist Name | Role | Phone | + +------+ + | Kirk French MD | PCP | | + +------+ + Encounter Details +--------+ + + + + | Date | Type | Department | Care Team | Description | +--------+ + + + + | 11/30/ | Abstract | [facility] | Provider, | | | 2019 | | GASTROENTEROLOGY | MD [address] | | | | | [address] | [address] [place] | | | | | [address] | [place] [address] | | | | | [address] | | | | | | [phone] | | | +--------+ + + + [...] W | | | | | | [place], | | | | | | [place] [address] | | | | | | [phone] | | | | | | | | +--------+ + + + + | 05/01/ | Procedure | Cardiology | | | | 2019 | visit | | | | +--------+ + + + + | 05/01/ | Office | Cardiology | Silvia, | | | 2019 | Visit | | [address] | | | | | | [place], | | | | | | [place] [address] | | | | | | [phone] | | | | | | | | +--------+ + + + + | 05/21/ | Implant | Cardiology | Daljit Singletary, | Remote Device | | 2019 | Monitor | | MD [address] [place] | Interrogation | | | | | [place], | (Primary Dx); | | | | | [place] [address] | Pacemaker; | | | | | [phone] | Sinoatrial node | | | | [...] + + | EXTERNAL: | Routin | 01/05/2019 | | Results for this | | COLONOSCOPY | e | | | procedure are in the | | | | | | results section. | + +--------+ + + + documented in this encounter Results EXTERNAL: COLONOSCOPY (01/05/2019) + + + + + + | Component | Value | Ref Range | Performed | Pathologist | | | | | At | Signature | + + + + + + | Colonoscopy | Impression: The entire | | EXTERNAL | | | | examined colon is | | LAB | | | Impression, | normal. Biopsied. Stool | | | | | External | in the ascending colon | | | | | | and in the cecum. The | | | | | | examination was | | | | | | otherwise normal. The | | | | | | distal rectum and anal | | | | | | verge are normal on | | | | | | retroflexion view.. ~ | | | | | | Emmanuel Daniel [facility] | | | | + + + + + + + +---------+ + + | Performing | Address | City/State/Zipcode | Phone Number | | Organization | | | | + +---------+ + + | EXTERNAL LAB | | | | + +---------+ + + documented in this encounter Visit Diagnoses Not on filedocumented in this encounter"
--- OUTSIDE RECORDS SUMMARY | ~2020-04-13 | XMS | Encounter Summary ---
Demographics + + + | Address | [address] | | | [place] [address] | + + + | Home Phone [...] Team Providers + +------+ + | Care Airfreight Loading Supervisor Name | Role | Phone | [...] | 06/22/ | Telephone | [facility] [place] | Emmanuel Daniel MD | Lab Order | | 2019 | | GASTROENTEROLOGY | [address], [place] | | | | | [address] [place] | [address] [place], [place] | | | | | [address] [place], [place] | [address] | | | | | [address] | | | | | | [phone] | | | +--------+ + + + [...] | | | | | | [place] [address] | | | | | | [phone] | | | | | | | [...] | | | | | | [place] [address] | | | | | | [phone] | | | | | | | | +--------+ + + + + | 05/21/ | Implant | Cardiology | Daljit Singletary, | Remote Device | 2019 | Monitor | | MD [address] | Interrogation | | | | | [facility], | (Primary Dx); | | | | | [place] [address] | Pacemaker; | | | | | [phone] | Sinoatrial node | | | | | | dysfunction (HCC) | | | | | | with symptomatic | | | | | | bradycardia | +--------+ + + + + documented as of this encounter Visit Diagnoses Not on filedocumented in this encounter"
--- OUTSIDE RECORDS SUMMARY | ~2020-04-13 | XMS | Encounter Summary ---
Demographics + + + | Address | [address] [place] [address] [address] LOZANO | | | [place] [address] | + + + | Home Phone [...] [place] | | | | | [address] | | + + + + + Care Team Providers + +------+ + | Care Multifocal Button Inspector Name | Role | Phone | [...] | | | | | unspecified | [address] | | | | | | type Rectal | Ave | | | | | | bleeding | [facility] [place] | | | | | | Procedures | [address] | | | | | | CONSULT TO | Phone: | | | | | | GASTROENTERO | [phone] | | | | | | LOGY | Fax: | | | | | | | [phone] | | + +--------+ + + + [...] | | | | | Procedures | [place], [place] | [facility] | | | | | CONSULT TO | [address] | Health and | | | | | ENDOSCOPY | Phone: | Healing, | | | | | UNIT: | [phone] | Building [address] | | | | | BOWEL | Fax: | [place], [place] | | | | | CAPSULE | [phone] | [address] | | | | | ENDOSCOPY | | Phone: | | | | | | | [phone] | | | | | | | Fax: | | | | | | | [phone] | + +--------+ + + + + [...] | | | | | bleeding | [place], [place] | [address] | | | | | Procedures | [address] | for Health | | | | | CONSULT TO | Phone: | and Healing, | | | | | ENDOSCOPY | [phone] | Building 2 | | | | | UNIT: | Fax: | [place], [place] | | | | | COLONOSCOPY | [phone] | [address] | | | | | | | Phone: | | | | | | | [phone] | | | | | | | Fax: | | | | | | | [phone] | +--------+--------+ + + + + Reason [...] | Other | | 2020 | | [place] [facility] [address] | MD [address] | | | | | [address] | [facility] [place] | | | | | Mailcode: [place] | [address] | | | | | for Health and | [phone] | | | | | [facility], [facility] 2 | | | | | | [place], [place] | | | | | | [address] | | | | | | [phone] | | | +--------+ + + + [...]
--- OUTSIDE RECORDS SUMMARY | ~2020-04-13 | XMS | Encounter Summary ---
Demographics + + + | Address | [address] | | | [place] [address] | + + + | Home Phone | | + + + | Preferred Language | Unknown | + + + | Marital Status | | + + + | Mormon Affiliation | 1013 | + + + [...] Team Providers + +------+ + | Care Digital Color Press Operator Name | Role | Phone | [...] | [address] | [place] [address] | | | | | [place] | [phone] | | | | | [address] | | | | | | [phone] | | | +--------+ + + + [...] W | | | | | | [place], | | | | | | [place] [address] | | | | | | [phone] | | | | | | | | +--------+ + + + + | 05/01/ | Procedure | Cardiology | | | | 2019 | visit | | | | +--------+ + + + + | 05/01/ | Office | Cardiology | Silvia, | | | 2019 | Visit | | [address] | | | | | | [place], | | | | | | [place] [address] | | | | | | [phone] | | | | | | | | +--------+ + + + + | 05/21/ | Implant | Cardiology | Daljit Singletary, | Remote Device | 2019 | Monitor | | MD [address] [place] | Interrogation | | | | | [place], | (Primary Dx); | | | | | [place] [address] | Pacemaker; | | | | | [phone] | Sinoatrial node | | | | | | dysfunction (HCC) | | | | | | with symptomatic | | | | | | bradycardia | +--------+ + + + + documented as of this encounter Visit Diagnoses Not on filedocumented in this encounter"
--- OUTSIDE RECORDS SUMMARY | ~2020-04-13 | XMS | Encounter Summary ---
Demographics + + + | Address | [address] | | | [place] [address] | + + + | Home Phone [...] Team Providers + +------+ + | Care Sole Leveler Machine Name | Role | Phone | [...] Refill | | 2011 | | [facility] [place] | DO [address] | | | | | [address] | [place] | | | | | [place] | [address] | | | | | [address] | | | | | | [phone] | | | +--------+--------+ + + + [...] | | | | | | [place] [address] | | | | | | [phone] | | | | | | | | +--------+ + + + + | 05/01/ | Procedure | Cardiology | | | | 2019 | visit | | | | +--------+ + + + + | 05/01/ | Office | Cardiology | Silvia, | | | 2019 | Visit | | [address] | | | | | | [place], | | | | | | [place] [address] | | | | | | [phone] | | | | | | | | +--------+ + + + + | 05/21/ | Implant | Cardiology | Daljit Singletary, | Remote Device | 2019 | Monitor | | [address] [place] | Interrogation | | | | | [place], | (Primary Dx); | | | | | [place] [address] | Pacemaker; | | | | | [phone] | Sinoatrial node | | | | [...]
--- OUTSIDE RECORDS SUMMARY | ~2020-04-13 | XMS | Encounter Summary ---
Demographics + + + | Address | [address] | | | [place] [address] | + + + | Home Phone [...] Team Providers + +------+ + | Care Bulldozer Mechanic Name | Role | Phone | [...] [address] | | | | | [place], | [place], | | | | | [place] [address] | [place] [address] | | | | | [phone] | [phone] | | | | | | | [...] | | | | | | [place] [address] | | | | | | [phone] | | | | | | | | +--------+ + + + + | 05/01/ | Procedure | Cardiology | | | | 2019 | visit | | | | +--------+ + + + + | 05/01/ | Office | Cardiology | Silvia, | | | 2019 | Visit | | [address] | | | | | | [place], | | | | | | [place] [address] | | | | | | [phone] | | | | | | | | +--------+ + + + + | 05/21/ | Implant | Cardiology | Daljit Singletary, | Remote Device | | 2019 | Monitor | | [facility] | Interrogation | | | | | [place], | (Primary Dx); | | | | | [place] [address] | Pacemaker; | | | | | [phone] | Sinoatrial node | | | | | | dysfunction (HCC) | | | | | | with symptomatic | | | | | | bradycardia | +--------+ + + + + documented as of this encounter Visit Diagnoses Not on filedocumented in this encounter"
--- OUTSIDE RECORDS SUMMARY | ~2020-04-13 | XMS | Encounter Summary ---
Demographics + + + | Address | [address] [place] [address] [address] | | | [place] [address] | + + + | Home Phone | | + + + | Preferred Language | Unknown | + + + | Marital Status | | + + + | Orthodox Affiliation | Unknown | + + + | Race | White | + + + | Ethnic Group | Not or | + + + Author + + + | Author | [facility] | + + + | Organization | [facility] | + + + | Address | Unknown | + + + | Phone | Unavailable | + + + Support + + + + + | Name | Relationship | Address | Phone | + + + + + | Rachel Valencia | [address] | [place] | | | | | [address] | | + + + + + Care Team Providers + +------+ + | Care Carbon Brushes Assembler Name | Role | Phone | [...] [facility] [id number] | MD [address] [place] | diarrhea; sent to | | | | [address] | [facility] [place] | ED) | | | | Mailcode: Center | [address] | | | | | for Health and | [phone] | | | | | [facility], [facility] 2 | | | | | | [place], [place] | | | | | | [address] | | | | | | [phone] | | | +--------+ + + + [...]
--- OUTSIDE RECORDS SUMMARY | ~2020-04-13 | XMS | Encounter Summary ---
Demographics + + + | Address | [address] | | | [place] [address] | + + + | Home Phone [...] Team Providers + +------+ + | Care Duplicating Machine Servicer Name | Role | Phone | + [...] | 04/24/ | Telephone | [facility] [place] | Geri Angel, | Appointment | | 2014 | | CARDIOLOGY [address] | DYEING MACHINE TENDER [address] | | | | | [place], | [place], [place] | | | | | [place] [address] | [address] | | | | | [phone] | | | +--------+ + + + [...] W | | | | | | [place], | | | | | | [place] [address] | | | | | | [phone] | | | | | | | | +--------+ + + + + | 05/01/ | Procedure | Cardiology | | | | 2019 | visit | | | | +--------+ + + + + | 05/01/ | Office | Cardiology | Silvia, | | | 2019 | Visit | | [address] | | | | | | [place], | | | | | | [place] [address] | | | | | | [phone] | | | | | | | | +--------+ + + + + | 05/21/ | Implant | Cardiology | Daljit Singletary, | Remote Device | | 2019 | Monitor | | [facility] | Interrogation | | | | | [address] [place], | (Primary Dx); | | | | | [place] [address] | Pacemaker; | | | | | [phone] | Sinoatrial node | | | | | | dysfunction (HCC) | | | | | | with symptomatic | | | | | | bradycardia | +--------+ + + + + documented as of this encounter Visit Diagnoses Not on filedocumented in this encounter"
--- OUTSIDE RECORDS SUMMARY | ~2020-04-13 | XMS | Encounter Summary ---
Demographics + + + | Address | [address] | | | [place] [address] | + + + | Home Phone [...] Providers + +------+ + | Care Medical Radiation Therapist Name | Role | Phone | + [...] + + | 06/18/ | Emergency | [facility] | Dom Graham, | Cervical pain (neck) | | 2013 | | MED CTR EMERGENCY | MD [address] | (Primary Dx); | | | | CENTER [address] | [place] | Paresthesia and pain | | | | [place], [place] | [address] | of both upper | | | | [address] | | extremities | | | | [phone] | | | +--------+ + + + [...] cannot be sent through Care Everywhere.PARAESTHESIAS ( CONGOLESE)NECK SPRAIN/STRAIN (CONGOLESE)documented in this encounter Medications at Time of [...] + + + +---------+ + + | Lud[place]-3 Fatty | CAPS, one capsule by | [...] W | | | | | | [place], | | | | | | [place] [address] | | | | | | [phone] | | | | | | | | +--------+ + + + + | 05/01/ | Procedure | Cardiology | | | | 2019 | visit | | | | +--------+ + + + + | 05/01/ | Office | Cardiology | Silvia, | | | 2019 | Visit | | [address] | | | | | | [place], | | | | | | [place] [address] | | | | | | [phone] | | | | | | | | +--------+ + + + + | 05/21/ | Implant | Cardiology | Daljit Singletary, | Remote Device | | 2019 | Monitor | | MD [address] | Interrogation | | | | | [place], | (Primary Dx); | | | | | [place] [address] | Pacemaker; | | | | | [phone] | Sinoatrial node | | | | | | dysfunction ([facility]) | | | | | | with [...] | lordosis. In the interval since prior 2011 exam, posterior pedicle | | | screw [...] |increased lordosis. In the interval since prior 2012 exam, posterior pedicle | |screw and paris [...] + | MISCELLANEOUS LAB | | | [phone] | + +---------+ + + | MISCELANIOUS LAB | | | [phone] | + +---------+ + + documented in this encounter Visit Diagnoses + + | Diagnosis | + + | Cervical pain (neck) - Primary Cervicalgia | + + | Paresthesia and pain of both upper extremities Disturbance of skin sensation | + + documented in this encounter
--- OUTSIDE RECORDS SUMMARY | ~2020-04-13 | XMS | Encounter Summary ---
Demographics + + + | Address | [address] | | | [place] [address] | + + + | Home Phone [...] Team Providers + +------+ + | Care Perl Programmer Name | Role | Phone | + +------+ + PCP | Unavailable | + +------+ + Encounter Details +--------+ + + + + | Date | Type | Department | Care Team | Description | +--------+ + + + + | 06/17/ | Hospital | [facility] | | | | 2008 | Encounter | MED CTR EMERGENCY | | | | | | [place] [address] | | | | | | [place] | | | | | | [address] | | | | | | [phone] | | | +--------+ + + + [...] | | | | | | [place] [address] | | | | | | [phone] | | | | | | | | +--------+ + + + + | 05/01/ | Procedure | Cardiology | | | | 2019 | visit | | | | +--------+ + + + + | 05/01/ | Office | Cardiology | Silvia, | | | 2019 | Visit | | [address] | | | | | | [place], | | | | | | [place] [address] | | | | | | [phone] | | | | | | | | +--------+ + + + + | 05/21/ | Implant | Cardiology | Daljit Singletary, | Remote Device | 2019 | Monitor | | [address] [facility] | Interrogation | | | | | [place], | (Primary Dx); | | | | | [place] [address] | Pacemaker; | | | | | [phone] | Sinoatrial node | | | | | | dysfunction (HCC) | | | | | | with symptomatic | | | | | | bradycardia | +--------+ + + + + documented as of this encounter Visit Diagnoses Not on filedocumented in this encounter"
--- OUTSIDE RECORDS SUMMARY | ~2020-04-13 | XMS | Encounter Summary ---
Demographics + + + | Address | [address] | | | [place] [address] | + + + | Home Phone [...] Team Providers + +------+ + | Care Master Baker Name | Role | Phone | + [...] + + | 08/14/ | Telephone | [facility] | Michael Amanda, | Appointment | | 2012 | | GROUP IM[facility] [address] | DO [address] | | | | | [facility] | [place] | | | | | [place], [place] | [address] | | | | | [address] | | | | | | [phone] | | | +--------+ + + + [...] | | | | | | [place], | | | | | | [place] [address] | | | | | | [phone] | | | | | | | | +--------+ + + + + | 05/01/ | Procedure | Cardiology | | | | 2019 | visit | | | | +--------+ + + + + | 05/01/ | Office | Cardiology | Silvia, | | | 2019 | Visit | | [address] | | | | | | [place], | | | | | | [place] [address] | | | | | | [phone] | | | | | | | | +--------+ + + + + | 05/21/ | Implant | Cardiology | Daljit Singletary, | Remote Device | 2019 | Monitor | | MD [address] | Interrogation | | | | | [place], | (Primary Dx); | | | | | [place] [address] | Pacemaker; | | | | | [phone] | Sinoatrial node | | | | | | dysfunction (HCC) | | | | | | with symptomatic | | | | | | bradycardia | +--------+ + + + + documented as of this encounter Visit Diagnoses Not on filedocumented in this encounter"
--- OUTSIDE RECORDS SUMMARY | ~2020-04-13 | XMS | Encounter Summary ---
Demographics + + + | Address | [address] | | | [place] [address] | + + + | Home Phone [...] Providers + +------+ + | Care Software Development Engineer Name | Role | Phone | [...] | 07/30/ | Telephone | [facility] | Michael Amanda, | Results | | 2013 | | MEDICINE [place] | DO [address] | | | | | [address] | [place] | | | | | [place] | [address] | | | | | [address] | | | | | | [phone] | | | +--------+ + + + [...] | | | | | | [place], | | | | | | [place] [address] | | | | | | [phone] | | | | | | | | +--------+ + + + + | 05/01/ | Procedure | Cardiology | | | | 2019 | visit | | | | +--------+ + + + + | 05/01/ | Office | Cardiology | Silvia, | | | 2019 | Visit | | [address] | | | | | | [place], | | | | | | [place] [address] | | | | | | [phone] | | | | | | | | +--------+ + + + + | 05/21/ | Implant | Cardiology | Daljit Singletary, | Remote Device | 2019 | Monitor | | MD [address] | Interrogation | | | | | [place], | (Primary Dx); | | | | | [place] [address] | Pacemaker; | | | | | [phone] | Sinoatrial node | | | | | | dysfunction (HCC) | | | | | | with symptomatic | | | | | | bradycardia | +--------+ + + + + documented as of this encounter Visit Diagnoses Not on filedocumented in this encounter"
--- OUTSIDE RECORDS SUMMARY | ~2020-04-13 | XMS | Encounter Summary ---
Demographics + + + | Address | [address] | | | [place] [address] | + + + | Home Phone [...] + +------+ + | Care Information Security Specialist Name | Role | Phone | [...] 2015 | | CARDIOLOGY [address] | SUPPLEMENTAL NURSE [address] [place] | | | | | [place], | [place], [place] | | | | | [place] [address] | [address] | | | | | [phone] | | | +--------+--------+ + + + [...] W | | | | | | [place], | | | | | | [place] [address] | | | | | | [phone] | | | | | | | | +--------+ + + + + | 05/01/ | Procedure | Cardiology | | | | 2019 | visit | | | | +--------+ + + + + | 05/01/ | Office | Cardiology | Silvia, | | | 2019 | Visit | | [address] | | | | | | [place], | | | | | | [place] [address] | | | | | | [phone] | | | | | | | | +--------+ + + + + | 05/21/ | Implant | Cardiology | Daljit Singletary, | Remote Device | | 2019 | Monitor | | [address] [facility] | Interrogation | | | | | [place], | (Primary Dx); | | | | | [place] [address] | Pacemaker; | | | | | [phone] | Sinoatrial node | | | | | | dysfunction (HCC) | | | | | | with symptomatic | | | | | | bradycardia | +--------+ + + + + documented as of this encounter Visit Diagnoses Not on filedocumented in this encounter"
--- OUTSIDE RECORDS SUMMARY | ~2020-04-13 | XMS | Encounter Summary ---
Demographics + + + | Address | [address] | | | [place] [address] | + + + | Home Phone [...] Team Providers + +------+ + | Care Customer Engineer Name | Role | Phone | [...] [place] | | | | | [place] | | [address] Phone: | | | | | CYSTO/URETER | | [phone] | | | | | [place] | | Fax: | | | | | W/LITHOTRIPS | | [phone] | | | | | Y &INDWELL [...] | | | | [address] | [place] | | | | | [place] | [address] | | | | | [address] | | | | | | [phone] | | | +--------+ + + + [...] +----+---+ + + | | 0 | [place] | | | | 8 | 43-degrees | | | | 2 | | | | | 7 | | | +----+---+ + + | | 0 | First | | | | 8 | Inc/Proc St | | | | 2 | | | | | 8 | | | +----+---+ + + | | 0 | [place] off | | | | 9 | [...] + + | 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 | | | ker | | [...] Hand; | 04/13/19 07 by | 04/13/19 1219 by | | eral | vzop-wln-qbjiqz catheter system; | Dominga Steen RN | [...] | | | | | | [place] [address] | | | | | | [phone] | | | | | | | | +--------+ + + + + | 05/01/ | Procedure | Cardiology | | | | 2019 | visit | | | | +--------+ + + + + | 05/01/ | Office | Cardiology | Silvia, | | | 2019 | Visit | | PARISA [address] | | | | | | [place], | | | | | | [place] [address] | | | | | | [phone] | | | | | | | | +--------+ + + + + | 05/21/ | Implant | Cardiology | Daljit Singletary, | Remote Device | | 2019 | Monitor | | MD [address] [place] | Interrogation | | | | | [place], | (Primary Dx); | | | | | [place] [address] | Pacemaker; | | | | | [phone] | Sinoatrial node | | | | [...] 8:23 | | | | | Starting Talia 04/13/19 at 0823, | | AM PDT | | | | | Anesthesia Intra-op | | | | | | + +--------+ +-------+------+------+ +---+---+ | | | +---+---+ + +-------+ +--------+---+---+ | HYDROmorphone (DILAUDID) 2 | Given | 04/13/20 | 0.4 mg | | | | mg/mL injection Intravenous, | | 19 8:21 | | | | | PRN, Starting Talia 04/13/19 at | | AM PDT | | [...] 8:24 | | | | | Starting Talia 04/13/19 at 0808, | | AM PDT [...]
--- OUTSIDE RECORDS SUMMARY | ~2020-04-13 | XMS | Encounter Summary ---
Demographics + + + | Address | [address] | | | [place] [address] | + + + | Home Phone [...] Team Providers + +------+ + | Care Copy Preparer Name | Role | Phone | + [...] Refill | | 2012 | | MEDICINE [place] | DO [address] | | | | | [address] | [place] | | | | | [place] | [address] | | | | | [address] | | | | | | [phone] | | | +--------+--------+ + + + [...] | | | | | | [place], | | | | | | [place] [address] | | | | | | [phone] | | | | | | | | +--------+ + + + + | 05/01/ | Procedure | Cardiology | | | | 2019 | visit | | | | +--------+ + + + + | 05/01/ | Office | Cardiology | Silvia, | | | 2019 | Visit | | [address] | | | | | | [place], | | | | | | [place] [address] | | | | | | [phone] | | | | | | | | +--------+ + + + + | 05/21/ | Implant | Cardiology | Daljit Singletary, | Remote Device | | 2019 | Monitor | | [facility] | Interrogation | | | | | [place], | (Primary Dx); | | | | | [place] [id number] | Pacemaker; | | | | | [phone] | Sinoatrial node | | | | | | dysfunction (HCC) | | | | | | with symptomatic | | | | | | bradycardia | +--------+ + + + + documented as of this encounter Visit Diagnoses Not on filedocumented in this encounter"
--- OUTSIDE RECORDS SUMMARY | ~2020-04-13 | XMS | Encounter Summary ---
Demographics + + + | Address | [address] | | | [place] [address] | + + + | Home Phone [...] Providers + +------+ + | Care Wire Wrapper Machine Operator Name | Role | Phone | + +------+ + PCP | Unavailable | + +------+ + Encounter Details +--------+ + + + + | Date | Type | Department | Care Team | Description | +--------+ + + + + | 12/16/ | [facility] | [facility] | Naresh Mckeon | | | 2010 | Encounter | MED CTR SLEEP | MD Chaya [address] | | | | | CENTER [address] | [place] | | | | | [place] | [place] [address] | | | | | [address] | [phone] | | | | | [phone] | | | +--------+ + + + [...] W | | | | | | [place], | | | | | | [place] [address] | | | | | | [phone] | | | | | | | | +--------+ + + + + | 05/01/ | Procedure | Cardiology | | | | 2019 | visit | | | | +--------+ + + + + | 05/01/ | Office | Cardiology | Silvia | | | 2019 | Visit | | PARISA [address] W | | | | | | [place], | | | | | | [place] [address] | | | | | | [phone] | | | | | | | | +--------+ + + + + | 05/21/ | Implant | Cardiology | Daljit Singletary, | Remote Device | 2019 | Monitor | | MD Sim [place] | Interrogation | | | | | [place], | (Primary Dx); | | | | | [place] [address] | Pacemaker; | | | | | [phone] | Sinoatrial node | | | | | | dysfunction (HCC) | | | | | | with symptomatic | | | | | | bradycardia | +--------+ + + + + documented as of this encounter Visit Diagnoses Not on filedocumented in this encounter"
--- OUTSIDE RECORDS SUMMARY | ~2020-04-13 | XMS | Encounter Summary ---
Demographics + + + | Address | [address] | | | [place] [address] | + + + | Home Phone [...] Providers + +------+ + | Care Rn Field Name | Role | Phone | + +------+ + PCP | Unavailable | + +------+ + Encounter Details +--------+ + + + + | Date | Type | Department | Care Team | Description | +--------+ + + + + | 01/27/ | [facility] | [facility] | Jonathan, | | | 2008 | Encounter | MED CTR EMERGENCY | Martell Cr MD [address] | | | | | CENTER [address] | [place] | | | | | [place] | [place] [address] | | | | | [address] | [phone] | | | | | [phone] | | | +--------+ + + + [...] W | | | | | | [place], | | | | | | [place] [address] | | | | | | [phone] | | | | | | | | +--------+ + + + + | 05/01/ | Procedure | Cardiology | | | | 2019 | visit | | | | +--------+ + + + + | 05/01/ | Office | Cardiology | Silvia | | | 2019 | Visit | | PARISA [address] | | | | | | [place], | | | | | | [place] [address] | | | | | | [phone] | | | | | | | | +--------+ + + + + | 05/21/ | Implant | Cardiology | Daljit Singletary, | Remote Device | 2019 | Monitor | | MD Sim [place] | Interrogation | | | | | [place], | (Primary Dx); | | | | | [place] [address] | Pacemaker; | | | | | [phone] | Sinoatrial node | | | | | | dysfunction (HCC) | | | | | | with symptomatic | | | | | | bradycardia | +--------+ + + + + documented as of this encounter Visit Diagnoses Not on filedocumented in this encounter"
--- OUTSIDE RECORDS SUMMARY | ~2020-04-13 | XMS | Encounter Summary ---
Demographics + + + | Address | [address] | | | [place] [address] | + + + | Home Phone [...] Team Providers + +------+ + | Care Studio Owner Name | Role | Phone | + +------+ + PCP | Unavailable | + +------+ + Encounter Details +--------+ + + + + | Date | Type | Department | Care Team | Description | +--------+ + + + + | 11/05/ | [facility] | [facility] | Naresh Mckeon | | | 2009 | Encounter | MED CTR SLEEP | MD Chaya [address] | | | | | CENTER [address] | [place] | | | | | [place] | [place] [address] | | | | | [address] | [phone] | | | | | [phone] | | | +--------+ + + + [...] W | | | | | | [place], | | | | | | [place] [address] | | | | | | [phone] | | | | | | | | +--------+ + + + + | 05/01/ | Procedure | Cardiology | | | | 2019 | visit | | | | +--------+ + + + + | 05/01/ | Office | Cardiology | Siliva | | | 2019 | Visit | | [address] | | | | | | [place], | | | | | | [place] [address] | | | | | | [phone] | | | | | | | | +--------+ + + + + | 05/21/ | Implant | Cardiology | Daljit Singletary, | Remote Device | 2019 | Monitor | | MD Sim [place] | Interrogation | | | | | [place], | (Primary Dx); | | | | | [place] [address] | Pacemaker; | | | | | [phone] | Sinoatrial node | | | | | | dysfunction (HCC) | | | | | | with symptomatic | | | | | | bradycardia | +--------+ + + + + documented as of this encounter Visit Diagnoses Not on filedocumented in this encounter"
--- OUTSIDE RECORDS SUMMARY | ~2020-04-13 | XMS | Encounter Summary ---
Demographics + + + | Address | [address] | | | [place] [address] | + + + | Home Phone [...] Team Providers + +------+ + | Care Lens Silverer Name | Role | Phone | + [...] | type | [address] | [address] | | | | | Procedures | [place] | [place], | | | | | FUP | [place], [place] | [place] [address] | | | | | | [address] | Phone: | | | | | | Phone: | [phone] | | | | | | [phone] | Fax: | | | | | | Fax: | [phone] | | | | | | [phone] | | +--------+ + + + + [...] | | | | CENTER [address] | [address] [place] | (Primary Dx) | | | | [place], [place] | [place] [address] | | | | | [address] | [phone] | | | | | [phone] | | | +--------+ + + + [...] cannot be sent through Care Everywhere.Angina, Stable (Macedonian)documented in this encounter Medications at Time of [...] + + + +---------+ + + | [place]-3 Fatty | CAPS, one capsule by | [...] | | | | | | [place] [address] | | | | | | [phone] | | | | | | | | +--------+ + + + + | 05/01/ | Procedure | Cardiology | | | | 2019 | visit | | | | +--------+ + + + + | 05/01/ | Office | Cardiology | Silvia | | | 2019 | Visit | | PARISA Vernon [address] | | | | | | [place], | | | | | | [place] [address] | | | | | | [phone] | | | | | | | | +--------+ + + + + | 05/21/ | Implant | Cardiology | Daljit Singletary, | Remote Device | 2019 | Monitor | | [address] | Interrogation | | | | | [place], | (Primary Dx); | | | | | [place] [address] | Pacemaker; | | | | | [phone] | Sinoatrial node | | | | | | dysfunction ([facility]) | | | | | [...] by | | | | | | HIREN WINKLER, ANGELA ([id number]) | | | | | | on [...] | | | | | | [employer] | | | | | [...] + + | Performing | Address | City/State/[facility]m [facility] | Phone Number | | Organization | | | | + + + + + | [facility] | [address] | [place] | [phone] | | [facility] | | [address] | | | - LABORATORY | | [...] + | [facility] | [address] | [place] | [phone] | | [facility] | | [address] | | | - LABORATORY | | [...] | | | | | | [employer] | | | | | [...] + + | Performing | Address | City/State/Unm [facility] | Phone Number | | Organization | | | | + + + + + | [facility] | [address] | [place] | [phone] | | [facility] | | [address] | | | - LABORATORY | | [...] | [address] [place]LE | | | NIUEAN | RATE,ESTIMATED | | MEDICAL | | | | mL/min/1.93a1Ifqv than | | CENTER - | | [...] | 9.3 | 8.3 - 10.5 | [facility] | | | | | mg/dL | [facility] | | | | | | MEDICAL | | | | | | CENTER - | | | | | | LABORATORY | | + + + + + + | Albumin | 4.2 | 3.2 - 5.0 g/dL | [facility] | | | | | | [facility] | | | | | | MEDICAL [...] [address] | [place] | [phone] | | [facility] | | [address] | | | - LABORATORY | | [...] [address] | [place] | [phone] | | [facility] | | [address] | | | - LABORATORY | | [...] by | | | | | | ANGLEA MARADIAGA MD ([id number]) | | | | | | on [...]
--- OUTSIDE RECORDS SUMMARY | ~2020-04-13 | XMS | Encounter Summary ---
Demographics + + + | Address | [address] | | | [place] [address] | + + + | Home Phone [...] Providers + +------+ + | Care Senior Mechanical Design Engineer Name | Role | Phone | [...] + + | 08/24/ | Office | [facility] | Silvia, | Ascending thoracic | | 2018 | Visit | CARDIOLOGY [address] | [address] | aortic aneurysm | | | | [place], | [place], | ([facility]) (Primary Dx); | | | | [place] [address] | [place] [address] | Syncope, unspecified | | | | [phone] | [phone] | syncope type; | | | | | | Hypertension, | | | | | | unspecified type; | | | | | | Coronary artery | | | | | | disease involving | | | | | | [place] coronary | | | | | | artery of [place] | | | | | | heart [...] of non-critical coronary artery d isease involving [place] coronary artery of [place] heart without angina pectoris, essential h ypertension, [...] Preventative health care Coronary artery disease involving [place] coronary artery of [place] heart without angina pectoris Cannabis abuse, daily [...] by mouth Daily. 90 tabl et 1 [facility] Natural Products (OSTEO BI-FLEX/5-LOXIN ADVANCED PO) Take [...] 3RD DOSE, CALL 911 100 tablet 3 [place]-3 Fatty Acids (SALMON OIL-1000 PO) CAPS, one capsule by mouth daily twice daily ONE TOUCH DELICA LANCETS [facility] Check glucose as needed for hypoglycemia 100 [...] now present Confirmed by HIREN WINKLER, ANGELA ([id number]) on 07/28/2018 6:03:35 AM LAB RESULTS reviewed during visit today primarily from [facility]: LIPID Lab Results Component Value Date [...] PLTEX 157 04/11/2018 I reviewed records from [facility] for emergency department visit o n [...] ventricular arrhythmia performed by Dr. Gambino at [facility] on 01/30/2013. Patient had spontaneous PVCs [...] to go back in 3 days to [place] for an attempt of ablation under general [...] He is in class II of the [place] [employer] f unctional class. There are [...] subsided. 2. Non-critical Coronary artery disease involving [place] coronary artery of [place] heart [facility] angina pectoris: A. Normal exercise sestamibi [...] cannot completely be ruled out . D. [facility] 12/25/13, shows non critical coronary artery [...] this chart may have been created with Fablistic voice recognition software. Occasi onal wrong-word or [...] | | | | | | [place] [address] | | | | | | [phone] | | | | | | | | +--------+ + + + + | 05/01/ | Procedure | Cardiology | | | | 2019 | visit | | | | +--------+ + + + + | 05/01/ | Office | Cardiology | Silvia, | | | 2019 | Visit | | PARISA [address] | | | | | | [place], | | | | | | [place] [address] | | | | | | [phone] | | | | | | | | +--------+ + + + + | 05/21/ | Implant | Cardiology | Daljit Singletary, | Remote Device | | 2019 | Monitor | | [address] | Interrogation | | | | | [place], | (Primary Dx); | | | | | [place] [address] | Pacemaker; | | | | | [phone] | Sinoatrial node | | | | [...] + + | Coronary artery disease involving [place] coronary artery of [place] heart without | | angina pectoris | [...]
--- OUTSIDE RECORDS SUMMARY | ~2020-04-13 | XMS | Encounter Summary ---
Demographics + + + | Address | [address] | | | [place] [address] | + + + | Home Phone [...] Providers + +------+ + | Care Respiratory Supervisor Name | Role | Phone | + +------+ + | Michael Amanda DO | PCP | | + +------+ + Encounter Details +--------+ + + + + | Date | Type | Department | Care Team | Description | +--------+ + + + + | 01/30/ | Hospital | [facility] | Jay Gambino MD | | | 2012 - | Encounter | [facility]ART MED [facility] | [address] | | | | | CARDIAC TELEMETRY | [address] [place], | | | 01/31/ | | [address] | [place] [address] | | | 2012 | | [place] | [phone] | | | | | [address] | | | | | | [phone] | | | +--------+ + + + [...] 1960 ADMISSION DATE: 01/30/2013 DISCHARGE DATE: 01/31/2013 [id number] / [id number] ADMITTING DIAGNOSES: 1. Symptomatic PVCs. 2. Sinus [...] 150, 1 to 2 tabs daily. 10. [place]-3 fatty acids 1000 mg b.i.d. MOE GAY ADM:01/30/13 [id number] 01/31/13 DIS [place] DISCHARGE SUMMARY [id number] [facility] Carmela Cuevas PAC B [facility] MD Meena Pleitez THIS REPORT IS CONFIDENTIAL AND NOT TO BE RELEASED WITHOUT PROPER AUTHORIZATION. [facility] 11. Valacyclovir 500 mg daily. B. New medication added: Diltiazem CD 180 a day. FOLLOWUP: The patient has a followup appointment on 03/02/2013 at 10:[address] Niles meza at the [facility] [place], [address]. No heavy lifting or driving times 48 hours. YOANA Barlow MD A P [facility] #[id number] cc: MD Carmela Pleitez PA-C Electronically Signed 02/06/13 1616 LAKESHIA Barlow Electronically Signed 02/20/13 0731 Jay Gambino MD MOE GAY ADM:01/30/13 [id number] 01/31/13 DIS [place] DISCHARGE SUMMARY [id number] [facility] LAKESHIA Barlow B [facility] Jay Gambino MD R THIS REPORT IS CONFIDENTIAL AND NOT TO BE RELEASED WITHOUT PROPER AUTHORIZATION.Electronica lly signed by Jael Brown at 02/20/2013 7:31 AM FRANCYZzCarmela Moncada - 02/01/20 13 8:44 AM PDT PATIENT NAME: MOE GAY Sex/Age: M / 52Y : 1960 ADMISSION DATE: 01/30/2013 DISCHARGE DATE: 01/31/2013 [id number] / [id number] ADMITTING DIAGNOSES: 1. Symptomatic PVCs. 2. Sinus [...] 150, 1 to 2 tabs daily. 10. [place]-3 fatty acids 1000 mg b.i.d. MOE GAY ADM:01/30/13 [id number] 01/31/13 DIS [place] DISCHARGE SUMMARY [id number] [facility] LAKESHIA Barlow B [facility] MD Meena Pleitez THIS REPORT IS CONFIDENTIAL AND NOT TO BE RELEASED WITHOUT PROPER AUTHORIZATION. [facility] 11. Valacyclovir 500 mg daily. B. New medication added: Diltiazem CD 180 a day. FOLLOWUP: The patient has a followup appointment on 03/02/2013 at 10:[address] Niles meza at the [facility] [place], [address]. No heavy lifting or driving times 48 hours. YOANA Barlow MD A P [facility] #[id number] cc: MD Carmela Pleitez PA-C Electronically Signed 02/06/13 1616 LAKESHIA Barlow MOE GAY ADM:01/30/13 [id number] 01/31/13 DIS [place] DISCHARGE SUMMARY [id number] [facility] LAKESHIA Barlow ES B [facility] Jay Gambino MD R THIS REPORT IS [...] + + + +---------+ + + | [place]-3 Fatty | CAPS, one capsule by | [...] | | | | | | [place] [address] | | | | | | [phone] | | | | | | | | +--------+ + + + + | 05/01/ | Procedure | Cardiology | | | | 2019 | visit | | | | +--------+ + + + + | 05/01/ | Office | Cardiology | Silvia, | | | 2019 | Visit | | [address] | | | | | | [place], | | | | | | [place] [address] | | | | | | [phone] | | | | | | | | +--------+ + + + + | 05/21/ | Implant | Cardiology | Daljit Singletary, | Remote Device | | 2019 | Monitor | | MD Sim [place] | Interrogation | | | | | [place], | (Primary Dx); | | | | | [place] [address] | Pacemaker; | | | | | [phone] | Sinoatrial node | | | | [...] + + | [facility] | [address] | [place] [address] | | | [facility] | [...] +---------+ + + + | WBC | 6.9 | 3.8 - 11.0 K/uL | [facility] | [facility] | | | | | | [facility] | | | | | | [facility]ENTER | | | | | | LABORATORY | | + +---------+ + + + | RBC | 4.90 | 4.20 - 5.70 | [facility] | | | | | M/uL | [facility] | | [...] + + + + + | [facility] | [address] [place] [address] | [place] [address] | | | [facility] | | | | | LABORATORY | | | | + + + + + | [facility] | | | | | [facility] | | | | | LABORATORY [...] + + | Glucose | 113 (H)Comment: [place] | 65 - 99 mg/dL | [facility] | | | | Diabetes Association | [...] 0.79Comment: IDMS | 0.70 - 1.30 | [facility] | | | | traceable creatinine | [...] + + | [facility] | [address] | [place] [address] | | | HEART [facility] | | | | | LABORATORY | | | | + + + + + | [facility] | | | | | HEART [facility] | | | | | LABORATORY | | | | + + + + + documented in this encounter Visit Diagnoses Not on filedocumented in this encounter"
--- OUTSIDE RECORDS SUMMARY | ~2020-04-13 | XMS | Encounter Summary ---
Demographics + + + | Address | [address] | | | [place] [address] | + + + | Home Phone [...] [facility] [place] | | | and [place] | + [...] Providers + +------+ + | Care Industrial Technology Education Teacher Name | Role | Phone [...] | Refill | [facility] [place] | [place], | Medication Refill | | 2014 | | CARDIOLOGY [address] | PARISA [place] [address] | | | | | [place], | [place], | | | | | [place] [address] | [place] [address] | | | | | [phone] | [phone] | | | | | | | [...] | | | 2019 | | | PAIRSA [address] | | | | | | [place], | | | | | | [place] [address] | | | | | | [phone] | | | | | | | | +--------+ + + + + | 05/01/ | Procedure | Cardiology | | | | 2019 | visit | | | | +--------+ + + + + | 05/01/ | Office | Cardiology | Silvia, | | | 2019 | Visit | | PARISA [address] | | | | | | [place], | | | | | | [place] [address] | | | | | | [phone] | | | | | | | | +--------+ + + + + | 05/21/ | Implant | Cardiology | Daljit Singletary, | Remote Device | | 2019 | Monitor | | [address] [facility] | Interrogation | | | | | [address], | (Primary Dx); | | | | | [place] [address] | Pacemaker; | | | | | [phone] | Sinoatrial node | | | | | | dysfunction (HCC) | | | | | | with symptomatic | | | | | | bradycardia | +--------+ + + + + documented as of this encounter Visit Diagnoses Not on filedocumented in this encounter"
--- OUTSIDE RECORDS SUMMARY | ~2020-04-13 | XMS | Encounter Summary ---
Demographics + + + | Address | [address] | | | [place] [address] | + + + | Home Phone [...] Providers + +------+ + | Care Certified Wellness Program Coordinator Name | Role | Phone | [...] | | CARDIOLOGY [address] | [facility] STOCK CLERK [address] | | | | | [place], | [place], | | | | | [place] [address] | [place] [address] | | | | | [phone] | [phone] | | | | | | | [...] | | | | | | [place], | | | | | | [place] [address] | | | | | | [phone] | | | | | | | | +--------+ + + + + | 05/01/ | Procedure | Cardiology | | | | 2019 | visit | | | | +--------+ + + + + | 05/01/ | Office | Cardiology | Silvia, | | | 2019 | Visit | | PARISA [address] W | | | | | | [place], | | | | | | [place] [address] | | | | | | [phone] | | | | | | | | +--------+ + + + + | 05/21/ | Implant | Cardiology | Daljit Singletary, | Remote Device | 2019 | Monitor | | MD [address] | Interrogation | | | | | [address] [place], | (Primary Dx); | | | | | [place] [address] | Pacemaker; | | | | | [phone] | Sinoatrial node | | | | | | dysfunction (HCC) | | | | | | with symptomatic | | | | | | bradycardia | +--------+ + + + + documented as of this encounter Visit Diagnoses Not on filedocumented in this encounter"
--- OUTSIDE RECORDS SUMMARY | ~2020-04-13 | XMS | Encounter Summary ---
Demographics + + + | Address | [address] | | | [place] [address] | + + + | Home Phone [...] Team Providers + +------+ + | Care Telephone Claims Representative Name | Role | Phone | + +------+ + | Michael Amanda DO | PCP | | + +------+ + Encounter Details +--------+ + + + + | Date | Type | Department | Care Team | Description | +--------+ + + + + | 05/11/ | Hospital | [facility] | Conversion | Lumbago; | | 2013 | Encounter | MEDICAL CENTER | Transaction, | Postlaminectomy | | | | CLINICAL DECISION | Provider Unknown | syndrome, cervical | | | | [address] | | region; Cervicalgia | | | | [place], [place] | (Fax) | | | | | [address] | Cesar, | | | | | [phone] | MD Gamaliel | | +--------+ + [...] + + + +---------+ + + | [place]-3 Fatty | CAPS, one capsule by | [...] Date of Service: 05/11/14 150 Status: Signed Health Care Marketing Manager: Meliza Macario RN (Registered Nurse) Pt discharged home, discharge instructions were reviewed, prescriptions provided, and quest ions answered. IV discontinued- gauze and tape applied to site. onver fatemeh Transaction, Provider Unknown - 05/11/2014 2:23 PM PDT Nurse Progress Note by Heike Mckeon RN at 05/11/14 1429 Author: Heike Mckeon RN Service: (none) Author Type: Registered Nurse Filed: 05/11/14 1424 Date of Service: 05/11/14 142 Status: Signed Health Care Marketing Manager: Heike Mckeon RN (Registered Nurse) Called [...] | | | | | | [place] [address] | | | | | | [phone] | | | | | | | | +--------+ + + + + | 05/01/ | Procedure | Cardiology | | | | 2019 | visit | | | | +--------+ + + + + | 05/01/ | Office | Cardiology | Silvia, | | | 2019 | Visit | | PARISA [address] W | | | | | | [place], | | | | | | [place] [address] | | | | | | [phone] | | | | | | | | +--------+ + + + + | 05/21/ | Implant | Cardiology | Daljit Singletary, | Remote Device | | 2019 | Monitor | | [facility] | Interrogation | | | | | [address], | (Primary Dx); | | | | | [place] [address] | Pacemaker; | | | | | [phone] | Sinoatrial node | | | | | | dysfunction ([facility]) | | | | | [...] | | | intrathecal use. See the aquaculture director examination for details of the | | | injection. Bone algorithm noncontrast technique with reformatted | | | sagittal and coronal images. Prior study for review : CT discogram | | | from 2004 was used to orient this examination given the transitional | | | anatomy of the lumbosacral junction FINDINGS: Silhouette Artist is notable | | | for a [...] for intrathecal use. See | | the aquaculture director examination for details of the injection. Bone algorithm noncontrast | | technique with reformatted sagittal and coronal images. Prior study for review : CT | | discogram from 2004 was used to orient this examination given the transitional anatomy | | of the lumbosacral junction FINDINGS: Silhouette Artist is notable for a pacing system. Anterior [...]
--- OUTSIDE RECORDS SUMMARY | ~2020-04-13 | XMS | Encounter Summary ---
Demographics + + + | Address | [address] | | | [place] [address] | + + + | Home Phone [...] Team Providers + +------+ + | Care Sound Recording Technician Name | Role | Phone | + +------+ + | Kirk French MD | PCP | | + +------+ + Encounter Details +--------+ + + + + | Date | Type | Department | Care Team | Description | +--------+ + + + + | 01/05/ | Anesthesia | [facility] | Jarett Barakat | | | 2019 | Event | MED CTR MP INTRA OP | P, MD [address] | | | | | [address] | [place], [place] | | | | | [place], [place] | [address] | | | | | [address] | [phone] | | | | | [phone] | | | +--------+ + + + + Anesthesia Record + + + + + | Procedure Name | Responsible | Anesthesia Start | Anesthesia Stop Time | | | Anesthesiologist | Time | | + + + + + | DAVIAN (N/A Dom) | Jarett Barakat, | 01/05/19833 | [...] explained and consent obtained. Patient transported to [facility], | | | 4 | | [...] + + + | Periph | 01/05/19; 745; Right; Hand; | 01/05/19 0746 by | 01/05/19950 by | | eral | [id number] catheter system; | Kasie Natarajan RN | [...] | | | | | | [place] [address] | | | | | | [phone] | | | | | | | | +--------+ + + + + | 05/01/ | Procedure | Cardiology | | | | 2019 | visit | | | | +--------+ + + + + | 05/01/ | Office | Cardiology | Silvia, | | | 2019 | Visit | | [address] | | | | | | [place], | | | | | | [place] [address] | | | | | | [phone] | | | | | | | | +--------+ + + + + | 05/21/ | Implant | Cardiology | Daljit Singletary, | Remote Device | 2019 | Monitor | | ID [address] | Interrogation | | | | | [place], | (Primary Dx); | | | | | [place] [address] | Pacemaker; | | | | | [phone] | Sinoatrial node | | | | [...] | Procedure Note | + + | Jarett Barakat MD - 01/05/2019 8:44 AM PST Document [...] | | | | | Vomiting, Starting Talia 01/05/19 at | | AM PST | [...]
--- OUTSIDE RECORDS SUMMARY | ~2020-04-13 | XMS | Encounter Summary ---
Demographics + + + | Address | [address] [place] [address] [address] | | | [place] [address] | + + + | Home Phone | | + + + | Preferred Language | Unknown | + + + | Marital Status | | + + + | Sabianist Affiliation | Unknown | + + + | Race | White | + + + | Ethnic Group | Not or | + + + Author + + + | Author | [facility] | + + + | Organization | [facility] | + + + | Address | Unknown | + + + | Phone | Unavailable | + + + Support + + + + + | Name | Relationship | Address | Phone | + + + + + | Rachel Valencia | [address] | [place] | | | | | [address] | | + + + + + Care Team Providers + +------+ + | Care Beer Runner Name | Role | Phone | + [...] | | | | l weight | [place], [place] | | | | | | loss | [address] | | | | | | Procedures | Phone: | | | | | | CONSULT TO | [phone] | | | | | | NON - [facility] | Fax: | | | | | | PROVIDER | [phone] | | | | | | CONSULT [...] | | 2019 | | Center at [facility] [address] | MD [address] | change location of | | | | [address] | [place], [place] | referral ) | | | | Mailcode: Center | [address] | | | | | for Health and | [phone] | | | | | [facility] 2 | | | | | | [place], [place] | | | | | | [address] | | | | | | [phone] | | | +--------+ + + + [...]
--- OUTSIDE RECORDS SUMMARY | ~2020-04-13 | XMS | Encounter Summary ---
Demographics + + + | Address | [address] | | | [place] [address] | + + + | Home Phone [...] Providers + +------+ + | Care Solution Maker Name | Role | Phone | [...] | | | | exertion | | [place] | | | | | Chest pain | | [place], [place] | | | | | on exertion | | [address] | | | | | | | Phone: | | | | | | | [phone] | | | | | | | Fax: | | | | | | | [phone] | +--------+--------+ + + + + Encounter Details +--------+ + + + + | Date | Type | Department | Care Team | Description | +--------+ + + + + | 04/27/ | [facility] Martell Hart | Chest pain on | | 2014 - | | [facility] | Sanjay Palacios MD | exertion (Primary | | | | [address] [place] | [address] | Dx); Dyspnea on | | 03/20/ | | [place] [address] | [place] | exertion; Essential | | 2014 | | [phone] | [address] | hypertension; Acute | | | | | | chest pain; | | | | | Parth Kraft, | Dizziness, | | | | | [address] | nonspecific; Mixed | | | | | [place], [place] | anxiety depressive | | | | | [address] | disorder; PUD | | | | | [phone] | (peptic ulcer | | | | [...] might be different f rom the original. [facility] DISCHARGE SUMMARY Pt. Name/Age/: Moe Sanchez 55 [...] mg by mouth as needed. aka: BENADRYL Emma Lyman 550 MG Caps Take by mouth. [...] 911 aka: NITROSTAT ONE TOUCH DELICA LANCETS [facility] Check glucose as [...] Daily. to reduce urinary frequency - Lot #[id number], exp 07/2016 aka: RAPAFLO UNCODED MEDICATION - [...] Why: For hospital follow up Contact information: [address] [address] Call PARISA Russell. Specialty: Nurse Practitioner Why: As needed Contact information: [address] [place] [address] Condition: Patient being discharged with condition improved. Diet: Heart healthy, avoid acidic drinks and foods, spicy foods, too much coffee. Greater than 30 minutes were spent on discharge and coordination of post-hospital care. Electronically signed by: Thierry Fregoso DO, 03/20/2015 11:22 [facility] Portions of this chart may have been created with [employer] voice recognition software. Occasi onal wrong-word or sound-alike substitutions may have occurred due to the inherent granger itations of voice recognition software. Please read the chart carefully and recognize, using context, where these substitutions have occurred documented in this encounter Discharge Instructions Instructions Thierry Fregoso DO - 03/20/2015 Peptic Ulcer A peptic ulcer [...] afford the prescribed medication, you can try dnhs-fui-efovzzs acid blockers, such as Pepcid AC, Tagamet, [...] or as directed by your healthcare provider [id number] [employer]. [address] [place] [address]. All righ ts reserved. This information is [...] + + + +---------+ + + | Belcher-3 Fatty | CAPS, one capsule by | [...] | | | | | | | #[id number], exp 07/2016 | | | | | [...] DO - 03/19/2015 10:09 PM PDT . [facility] PROGRESS NOTE Patient: Moe Sanchez : 1960: Age: 55 y.o. MedRec: [id number] PCP: Kirk French Admission date: 03/18/2015 Hospital [...] PRN Parth Kraft MD 0.5 mg at 03/19/152033 cloNIDine (CATAPRES) tablet 0.2 mg 0.2 mg Oral TID Parth Kraft MD 0.2 mg at 1405 docusate sodium (COLACE) capsule 100 mg 100 mg Oral BID PRN Parth Krfat MD metoprolol succinate (TOPROL-XL) ER tablet 200 [...] 1708 03/18/15 1528 TROPONINI <0.01 <0.01 0.01 [facility] ECHOCARDIOGRAM REPORT STUDY DATE: 03/19/2015 PATIENT NAME: [...] changes. No results for input(s): PHART, PO2ART, TUO7HPT, NNH0VZM, BEART, U3ZDYUNX in the last 168 h ours. No results for input(s): SPECSOURCE, PHPOCB, HCO3, TCO2, BEART, BE, BRSX9ZLK in the last 16 8 hours. Invalid input(s): JQZEQ6RC, TIWH6AX Point of care glucose: No results for input(s): POCGLU in the last 168 hours. Serial weights: Filed Weights: 03/18/15 1438 03/18/150 Weight: 113.399 kg (250 lb) 107.5 kg [...] minutes today. Thierry Fregoso DO 03/19/2015 22:09 Located within [facility] Portions of this chart may have been created with [employer] voice recognition software. Occasi onal wrong-word or sound-alike substitutions may have occurred due to the inherent granger itations of voice recognition software. Please read the chart carefully and recognize, using context, where these substitutions have occurred Belén Cho RN - 03/19/2015 11:03 AM [id number] Report given to Marlen morejon who is assuming care. Electronically signed by: Jaja Hay RN 03/19/2015 11:04 Dieter Diamond RN - 03/19/2015 10:44 AM PDTAssumed care of patient, received report from MONROE Wilkinson. documented in t his encounter Plan of Treatment +--------+ + + + + | Date | Type | Specialty | Care Team | Description | +--------+ + + + + | 05/01/ | Appointment | Radiology | Silvia, | | | 2019 | | | PAR[address] | | | | | | [address], | | | | | | [place] [address] | | | | | | [phone] | | | | | | | | +--------+ + + + + | 05/01/ | Procedure | Cardiology | | | | 2019 | visit | | | | +--------+ + + + + | 05/01/ | Office | Cardiology | Silvia, | | | 2019 | Visit | | PARISA [place] [address] | | | | | | [address] [place], | | | | | | [place] [address] | | | | | | [phone] | | | | | | | | +--------+ + + + + | 05/21/ | Implant | Cardiology | Daljit Singletary, | Remote Device | | 2020 | Monitor | | MD [address] [facility] | Interrogation | | | | | [place], | (Primary Dx); | | | | | [place] [address] | Pacemaker; | | | | | [phone] | Sinoatrial node | | | | [...] Performed At | + + + | [facility] ECHOCARDIOGRAM REPORT | | | STUDY DATE: [...] | | Signed by: Daljit Singletary MD [facility] 03/19/2015 15:44 | | | Hospice Admitting Clerk: Dewey Valdez RDMS | | + + + ECG 12 lead (03/19/2015 7:50 AM PDT) + + + | Narrative | Performed At | + + + | Evan Gandara MD 03/19/2015 7:50 Adult ECG Report | | | Name: oMe Sanchez Age: 55 y.o. Gender: male | [...] | | | | | | [employer] | | | | | [...] + + | Performing | Address | City/State/[facility] [place] [facility] | Phone Number | | Organization | | | | + + + + + | [facility] | [address] | [place] | [phone] | | [facility] | | [address] | | | - LABORATORY | | [...] | | | | | mmol/L | [facility] | | | | | | MEDICAL | | | | | | CENTER - | | | | | | LABORATORY | | + + + + + + | K | 3.5 | 3.5 - 5.1 | [facility] | | | | | mmol/L | [facility] | | | | | [...] mL/min/1.73m2 | [facility] | | | [place] | RATE,ESTIMATED | | MEDICAL | | | | mL/min/1.61y3Isnr than | | CENTER - | | [...] | | ine Ratio | | | [facility] | | | [...] + | [facility] | [address] | [place], [place] | [phone] | | [facility] | | [address] | | | - LABORATORY | | | | + + + + + CBC with Differential (03/19/2015 3:50 AM PDT) + +---------+ + + + | Component | Value | Ref Range | Performed | Pathologist | | | | | At | Signature | + +---------+ + + + | WBC | 5.9 | 4.0 - 11.0 K/uL | [facility] | | | | | [facility] | | | | | | MEDICAL | | | | | | CENTER - | | | | | | LABORATORY | | + +---------+ + + + | RBC | 4.79 | 4.30 - 5.70 | [...] + + | [facility] | [address] | [place] | [phone] | | [facility] | | [address] | | | - LABORATORY | | [...] | | | | | | [employer] | | | | | [...] + + | Performing | Address | City/State/[place] [facility] | Phone Number | | Organization | | | | + + + + + | [facility] | [address] | [place] | [phone] | | [facility] | | [address] | | | - LABORATORY | | [...] Note | + + | Kevin Kalpesh Results In - 03/18/2015 4:31 PM PDT [...] | [address] | [place] | [phone] | | [facility] | | [address] | | | - LABORATORY | | | | + + + + + B Type Natriuretic Peptide (03/18/2015 3:34 PM PDT) + +-------+ + + + | Component | Value | Ref Range | Performed | Pathologist | | | | | At | Signature | + +-------+ + + + | BNP | 11 | <100 pg/mL | [facility] | | [...] + | [facility] | [address] | [place] | [phone] | | [facility] | | [address] | | | - LABORATORY | | | | + + + + + Phosphorus (03/18/2015 3:28 PM PDT) + +-------+ + + + | Component | Value | Ref Range | Performed | Pathologist | | | | | At | Signature | + +-------+ + + + | Phosphorus | 3.8 | 2.5 - 4.6 mg/dL | [facility] | | | | | | [facility] [address] | [place] | [phone] | | [facility] | | [address] | | | - LABORATORY | | | | + + + + + Magnesium (03/18/2015 3:28 PM PDT) + +-------+ + + + | Component | Value | Ref Range | Performed | Pathologist | | | | | At | Signature | + +-------+ + + + | Magnesium | 2.1 | 1.8 - 2.5 mg/dL | [facility] | [address] | [place], [place] | [phone] | | [facility] | | [address] | | | - LABORATORY | | [...] | | | | | | [employer] | | | | | [...] [address] | [place] | [phone] | | [facility] | | [address] | | | - LABORATORY | | | | + + + + + Lipase (03/18/2015 3:28 PM PDT) + +-------+ + + + | Component | Value | Ref Range | Performed | Pathologist | | | | | At | Signature | + +-------+ + + + | Lipase | 23 | 0 - 60 U/L | [facility] [...] + | [facility] | [address] | [place], [place] | [phone] | | [facility] | | [address] | | | - LABORATORY | | [...] | | | | | mmol/L | [facility] | | | | | [...] mL/min/1.73m2 | [facility] | | | [place] | RATE,ESTIMATED | | MEDICAL | | | | mL/min/1.72i1Dndg than | | CENTER - | | [...] 4.2 | 3.2 - 5.0 g/dL | [facility] | | | | | | [facility] | | | | | | MEDICAL | | | | | | CENTER - | | | | | | LABORATORY | | + + + + + + | Bilirubin | 0.9 | 0.1 - 1.5 mg/dL | [facility] | | | Total | | | [...] + | [facility] | [address] | [place] | [phone] | | [facility] | | [address] | | | - LABORATORY | | [...] +-------+ + + + | RBC | 5.05 | 4.30 - 5.70 | [...] | | Lymphocytes | | K/uL | [facility] | | | | | | MEDICAL | | | | | | CENTER - | | | | | | LABORATORY | | + +-------+ + + + | Absolute | 0.80 | 0.00 - 1.00 | [facility] | | | Monocytes | | K/uL | [facility] | | | | | | MEDICAL | | | | | | CENTER - | | | | | | LABORATORY | | + +-------+ + + + | Absolute | 0.10 | 0.00 - 0.40 | [facility] | | | Eosinophils | | K/uL | [facility] | | | | | | MEDICAL | | | | | | CENTER - | | | | | | LABORATORY | | + +-------+ + + + | Absolute | 0.10 | 0.00 - 0.10 | [facility] | | | Basophils | | K/uL | [facility] | | [address] | [place] | [phone] | | [facility] | | [address] | | | - LABORATORY | | [...] Unspecified essential hypertension | + + | Smoker Tobacco use disorder | + + documented [...] 8:06 | | | | | at 2015, For 1 dose | | PM PDT [...] | | | | Chest pain, Starting Wed03/18/15 | | | | | | | [...] First dose on Wed03/18/15 at | | PM PDT | | [...]
--- OUTSIDE RECORDS SUMMARY | ~2020-04-13 | XMS | Encounter Summary ---
Demographics + + + | Address | [address] | | | [place] [address] | + + + | Home Phone [...] Team Providers + +------+ + | Care Electrical Engineering Intern Name | Role | Phone | [...] + | 09/01/ | Telephone | [facility] | [place], | Appointment | | 2016 | | CARDIOLOGY [address] | [place] [address] | (Reschedule) | | | | [place], | [place], | | | | | [place] [address] | [place] [address] | | | | | [phone] | [phone] | | | | | | | [...] W | | | | | | [place], | | | | | | [place] [address] | | | | | | [phone] | | | | | | | | +--------+ + + + + | 05/01/ | Procedure | Cardiology | | | | 2019 | visit | | | | +--------+ + + + + | 05/01/ | Office | Cardiology | Silvia, | | | 2019 | Visit | | PARISA [place] [address] | | | | | | [place], | | | | | | [place] [address] | | | | | | [phone] | | | | | | | | +--------+ + + + + | 05/21/ | Implant | Cardiology | Daljit Singletary, | Remote Device | | 2019 | Monitor | | [address] [facility] | Interrogation | | | | | [place], | (Primary Dx); | | | | | [place] [address] | Pacemaker; | | | | | [phone] | Sinoatrial node | | | | | | dysfunction (HCC) | | | | | | with symptomatic | | | | | | bradycardia | +--------+ + + + + documented as of this encounter Visit Diagnoses Not on filedocumented in this encounter"
--- OUTSIDE RECORDS SUMMARY | ~2020-04-13 | XMS | Encounter Summary ---
Demographics + + + | Address | [address] | | | [place] [address] | + + + | Home Phone [...] Team Providers + +------+ + | Care Circus Hand Name | Role | Phone | + +------+ + | Kirk French MD | PCP | | + +------+ + Reason for Visit +--------+ + | Reason | Comments | +--------+ + | Other | Triage | +--------+ + Encounter Details +--------+ + + + + | Date | Type | Department | Care Team | Description | +--------+ + + + + | 10/04/ | Telephone | [facility] | Emmanuel Daniel MD | Other (Triage) | | 2019 | | GASTROENTEROLOGY | [address], [place] | | | | | [address] [place] | [address] [place], [place] | | | | | [address] [place], [place] | [address] | | | | | [address] | | | | | | [phone] | | | +--------+ + + + [...] | | | | | | [place] [address] | | | | | | [phone] | | | | | | | | +--------+ + + + + | 05/01/ | Procedure | Cardiology | | | | 2019 | visit | | | | +--------+ + + + + | 05/01/ | Office | Cardiology | Silvia, | | | 2019 | Visit | | [address]ISA [address] | | | | | | [place], | | | | | | [place] [address] | | | | | | [phone] | | | | | | | | +--------+ + + + + | 05/21/ | Implant | Cardiology | Daljit Singletary, | Remote Device | 2019 | Monitor | | [address] | Interrogation | | | | | [place], | (Primary Dx); | | | | | [place] [address] | Pacemaker; | | | | | [phone] | Sinoatrial node | | | | | | dysfunction (HCC) | | | | | | with symptomatic | | | | | | bradycardia | +--------+ + + + + documented as of this encounter Visit Diagnoses Not on filedocumented in this encounter"
--- OUTSIDE RECORDS SUMMARY | ~2020-04-13 | XMS | Encounter Summary ---
Demographics + + + | Address | [address] [place] [address] [address] | | | [place] [address] | + + + | Home Phone | | + + + | Preferred Language | Unknown | + + + | Marital Status | | + + + | Shinto Affiliation | Unknown | + + + [...] [place] | | | | | [address] | | + + + + + Care Team Providers + +------+ + | Care Munitions Handler Supervisor Name | Role | Phone | [...] | | | [address] | [facility] [place] | | | | | Mailcode: [place] | [address] | | | | | for Health and | [phone] | | | | | [facility] | | | | | | [place], [place] | | | | | | [address] | | | | | | [phone] | | | +--------+ + + + [...]
--- OUTSIDE RECORDS SUMMARY | ~2020-04-13 | XMS | Encounter Summary ---
Demographics + + + | Address | [address] | | | [place] [address] | + + + | Home Phone [...] Team Providers + +------+ + | Care Stage Driver Name | Role | Phone | + +------+ + | Michael Amanda DO | PCP | | + +------+ + Encounter Details +--------+ + + + + | Date | Type | Department | Care Team | Description | +--------+ + + + + | 09/29/ | Abstract | [place] [facility] | Jay Gabmino MD | | | 2012 | | Conversion Location | [address] | | | | | [facility] | [address] [place], | | | | | [place], [place] | [place] [address] | | | | | [address] | [phone] | | | | | [phone] | | | +--------+ + + + [...] | | | | | | [place] [address] | | | | | | [phone] | | | | | | | | +--------+ + + + + | 05/01/ | Procedure | Cardiology | | | | 2019 | visit | | | | +--------+ + + + + | 05/01/ | Office | Cardiology | Silvia, | | | 2019 | Visit | | [address] | | | | | | [place], | | | | | | [place] [address] | | | | | | [phone] | | | | | | | | +--------+ + + + + | 05/21/ | Implant | Cardiology | Daljit Singletary, | Remote Device | 2019 | Monitor | | [address] [place] | Interrogation | | | | | [place], | (Primary Dx); | | | | | [place] [address] | Pacemaker; | | | | | [phone] | Sinoatrial node | | | | | | dysfunction (HCC) | | | | | | with symptomatic | | | | | | bradycardia | +--------+ + + + + documented as of this encounter Visit Diagnoses Not on filedocumented in this encounter"
--- OUTSIDE RECORDS SUMMARY | ~2020-04-13 | XMS | Encounter Summary ---
Demographics + + + | Address | [address] | | | [place] [address] | + + + | Home Phone [...] Team Providers + +------+ + | Care Patient Services Clerk Name | Role | Phone | [...] | | | | stenosis | L, POULTRY HUSBANDR[address] WORK[address] | | | | | | Procedures | [address] | | | | | | [address] | [address] | | | | | | Myelography | [place], [place] | | | | | | Cervical | [address] | | | | | | Spine | Phone: | | | | | | | [phone] | | | | | | | Fax: | | | | | | | [phone] | | +--------+--------+ + + + + [...] + + | 06/04/ | Hospital | [facility] | Sariah, | Cervical spinal | | 2016 | Encounter | [facility] [address] | [place] Mason POULTRY HUSBANDRY WORK[address] | stenosis | | | | [place], | [address] | | | | | [place] [address] | [place] [address] | | | | | [phone] | [phone] | | | | | | | [...] + + + +---------+ + + | Han[place]-3 Fatty | CAPS, one capsule by | [...] | | | | | | [place] [address] | | | | | | [phone] | | | | | | | | +--------+ + + + + | 05/01/ | Procedure | Cardiology | | | | 2019 | visit | | | | +--------+ + + + + | 05/01/ | Office | Cardiology | Silvia, | | | 2019 | Visit | | PARISA [place] [address] | | | | | | [place], | | | | | | [place] [address] | | | | | | [phone] | | | | | | | | +--------+ + + + + | 05/21/ | Implant | Cardiology | Daljit Singletary, | Remote Device | | 2019 | Monitor | | [address] | Interrogation | | | | | [place], | (Primary Dx); | | | | | [place] [address] | Pacemaker; | | | | | [phone] | Sinoatrial node | | | | [...]
--- OUTSIDE RECORDS SUMMARY | ~2020-04-13 | XMS | Encounter Summary ---
Demographics + + + | Address | [address] | | | [place] [address] | + + + | Home Phone | | + + + | Preferred Language | Unknown | + + + | Marital Status | | + + + | Jew Affiliation | 1013 | + + + | Race | Unknown | + + + | Ethnic Group | Unknown | + + + Author + + + | Author | [facility] | | | and [place] | + + + | Organization | [facility] | | | [...] Team Providers + +------+ + | Care Linderman Operator Name | Role | Phone | [...] Description | +--------+--------+ + + + | 03/22/ | Refill | [facility] | Kirk French | Medication Refill | | 2019 | | [facility] | MD [address] | | | | | [facility] [address] | [address] | | | | | [address] | [place] [address] | | | | | [place], [place] | [phone] | | | | | [address] | | | | | | [phone] | | | +--------+--------+ + + + [...] | | | | | | [place] [address] | | | | | | [phone] | | | | | | | | +--------+ + + + + | 05/01/ | Procedure | Cardiology | | | | 2019 | visit | | | | +--------+ + + + + | 05/01/ | Office | Cardiology | [place], | | | 2019 | Visit | | PARISA [place] [address] | | | | | | [place], | | | | | | [place] [address] | | | | | | [phone] | | | | | | | | +--------+ + + + + | 05/21/ | Implant | Cardiology | Daljit Singletary, | Remote Device | | 2019 | Monitor | | [address] [facility] | Interrogation | | | | | [place], | (Primary Dx); | | | | | [place] [address] | Pacemaker; | | | | | [phone] | Sinoatrial node | | | | | | dysfunction (HCC) | | | | | | with symptomatic | | | | | | bradycardia | +--------+ + + + + documented as of this encounter Visit Diagnoses Not on filedocumented in this encounter"
--- OUTSIDE RECORDS SUMMARY | ~2020-04-13 | XMS | Encounter Summary ---
Demographics + + + | Address | [address] | | | [place] [address] | + + + | Home Phone [...] Team Providers + +------+ + | Care Office Asst Name | Role | Phone | [...] [address] | | | | | [place], | [place], | | | | | [place] [address] | [place] [address] | | | | | [phone] | [phone] | | | | | | | [...] W | | | | | | [place], | | | | | | [place] [address] | | | | | | [phone] | | | | | | | | +--------+ + + + + | 05/01/ | Procedure | Cardiology | | | | 2019 | visit | | | | +--------+ + + + + | 05/01/ | Office | Cardiology | Silvia, | | | 2019 | Visit | | [address] | | | | | | [place], | | | | | | [place] [address] | | | | | | [phone] | | | | | | | | +--------+ + + + + | 05/21/ | Implant | Cardiology | Daljit Singletary, | Remote Device | 2019 | Monitor | | [place] | Interrogation | | | | | [place], | (Primary Dx); | | | | | [place] [address] | Pacemaker; | | | | | [phone] | Sinoatrial node | | | | [...] [address] | [place] | [phone] | | [facility] | | [address] | | | - LABORATORY | [...]
--- OUTSIDE RECORDS SUMMARY | ~2020-04-13 | XMS | Encounter Summary ---
Demographics + + + | Address | [address] | | | [place] [address] | + + + | Home Phone [...] Providers + +------+ + | Care Shop Clerk Name | Role | Phone | [...] [address] | | | | | [address] | [place] | | | | | [phone] | [address] | | | | | | [phone] | | | | | | | [...] Notes by Kylah Fraser CMA at 04/11/18 [id number] Author: Kylah Fraser CMA Service: (none) Author Type: Spot Welder Line Filed: 04/19/18 1118 Encounter Date: 04/11/2018 Status: Signed Press And Blow Machine Tender: Kylah Fraser CMA (Spot Welder Line) See telephone encounter 04/19/18. Karen pfeiffer in [...] | | | | | | [place] [address] | | | | | | [phone] | | | | | | | | +--------+ + + + + | 05/01/ | Procedure | Cardiology | | | | 2019 | visit | | | | +--------+ + + + + | 05/01/ | Office | Cardiology | Silvia, | | | 2019 | Visit | | [address] | | | | | | [place], | | | | | | [place] [address] | | | | | | [phone] | | | | | | | | +--------+ + + + + | 05/21/ | Implant | Cardiology | Daljit Signletary, | Remote Device | | 2019 | Monitor | | [address] | Interrogation | | | | | [place], | (Primary Dx); | | | | | [place] [address] | Pacemaker; | | | | | [phone] | Sinoatrial node | | | | [...]
--- OUTSIDE RECORDS SUMMARY | ~2020-04-13 | XMS | Encounter Summary ---
Demographics + + + | Address | [address] | | | [place] [address] | + + + | Home Phone [...] Providers + +------+ + | Care Hand Profiler Name | Role | Phone | + [...] CTR CASE | RN | (referral from [facility]) | | | | MANAGEMENT [address] | | | | | | [place], | | | | | | [place] [address] | | | | | | [phone] | | | +--------+ + + + [...] | | | | | | [place] [address] | | | | | | [phone] | | | | | | | | +--------+ + + + + | 05/01/ | Procedure | Cardiology | | | | 2019 | visit | | | | +--------+ + + + + | 05/01/ | Office | Cardiology | Silvia, | | | 2019 | Visit | | PARISA [address] | | | | | | [place], | | | | | | [place] [address] | | | | | | [phone] | | | | | | | | +--------+ + + + + | 05/21/ | Implant | Cardiology | Daljit Singletary, | Remote Device | 2019 | Monitor | | [address] [facility] | Interrogation | | | | | [place], | (Primary Dx); | | | | | [place] [address] | Pacemaker; | | | | | [phone] | Sinoatrial node | | | | | | dysfunction (HCC) | | | | | | with symptomatic | | | | | | bradycardia | +--------+ + + + + documented as of this encounter Visit Diagnoses Not on filedocumented in this encounter"
--- OUTSIDE RECORDS SUMMARY | ~2020-04-13 | XMS | Encounter Summary ---
Demographics + + + | Address | [address] | | | [place] [address] | + + + | Home Phone [...] Providers + +------+ + | Care Wood Machine Carver Name | Role | Phone | + [...] 2012 | | CARDIOLOGY [address] | SERVICE CONTROL OPERATOR [address] | faxed) | | | | [place], | [place] [facility], [place] | | | | | [place] [address] | [address] | | | | | [phone] | | | +--------+ + + + [...] | | | | | | [place] [address] | | | | | | [phone] | | | | | | | [...] | | | | | | [place] [address] | | | | | | [phone] | | | | | | | | +--------+ + + + + | 05/21/ | Implant | Cardiology | Daljit Singletary, | Remote Device | | 2019 | Monitor | | [address] [facility] | Interrogation | | | | | [place], | (Primary Dx); | | | | | [place] [address] | Pacemaker; | | | | | [phone] | Sinoatrial node | | | | | | dysfunction (HCC) | | | | | | with symptomatic | | | | | | bradycardia | +--------+ + + + + documented as of this encounter Visit Diagnoses Not on filedocumented in this encounter"
--- OUTSIDE RECORDS SUMMARY | ~2020-04-13 | XMS | Encounter Summary ---
Demographics + + + | Address | [address] | | | [place] [address] | + + + | Home Phone [...] Providers + +------+ + | Care Supervisor Plastics Name | Role | Phone | + +------+ + | Kirk French MD | PCP | | + +------+ + Encounter Details +--------+ + + + + | Date | Type | Department | Care Team | Description | +--------+ + + + + | 01/19/ | Hospital | C GENERIC IP | Conversion | Pain | | 2017 | Encounter | CONVERSION DEP [address] | Transaction, | | | | | [address] | Provider Unknown | | | | | [place], [place] | [phone] | | | | | [address] | | | | | | [phone] | | | +--------+ + + + [...] + + + +---------+ + + | Langdon-3 Fatty | CAPS, one capsule by | [...] | | | | | | [place] [address] | | | | | | [phone] | | | | | | | | +--------+ + + + + | 05/01/ | Procedure | Cardiology | | | | 2019 | visit | | | | +--------+ + + + + | 05/01/ | Office | Cardiology | Silvia, | | | 2019 | Visit | | [address] | | | | | | [place], | | | | | | [place] [address] | | | | | | [phone] | | | | | | | | +--------+ + + + + | 05/21/ | Implant | Cardiology | Daljit Singletary, | Remote Device | | 2019 | Monitor | | [address] [facility] | Interrogation | | | | | [place], | (Primary Dx); | | | | | [place] [address] | Pacemaker; | | | | | [phone] | Sinoatrial node | | | | | | dysfunction ([facility]) | | | | | | [...] ARM < 1 HOUR | Routin | 06/04/2016 | | Results for this | | | e | 2:46 AM | | procedure are in the | | | | PDT | | results section. | + +--------+ + + + documented in this encounter Results [place] C-Arm < 1 Hour (06/04/2016 2:46 AM PDT) + + | Specimen | [...]
--- OUTSIDE RECORDS SUMMARY | ~2020-04-13 | XMS | Encounter Summary ---
Demographics + + + | Address | [address] | | | [place] [address] | + + + | Home Phone [...] Team Providers + +------+ + | Care User Interface Developer Name | Role | Phone | + +------+ + | Michael Amanda DO | PCP | | + +------+ + Encounter Details +--------+ + + + + | Date | Type | Department | Care Team | Description | +--------+ + + + + | 02/27/ | Hospital | [facility] | Shelly Carter DO | Chest pain; | | 2013 - | Encounter | [facility] | [address] | Pacemaker; | | | | CLINICAL DECISION | [place] [address] | Mild dehydration | | 02/28/ | | [address] [facility] | [phone] | | | 2013 | | [place], [place] | | | | | | [address] | | | | | | [phone] | | | +--------+ + + + [...] 2252 Date of Service: 02/28/141044 Status: Addendum Supervisor [employer]: Dev Montano MD (Physician) Related Notes: Original Note by Dev Montano MD (Physician) filed at 02/28/14 1107 Patient ID: Pina Gay [id number] y.o. 1960 Admit date: 02/27/2014 Discharge [...] - 99 mg/dL Final Testing performed at [address] [address] BUN Date Value Range Status 02/28/2014 15 8 - 25 mg/dL Final Testing performed at [address] [address] CREATININE Date Value Range Status 02/28/2014 0.74 0.70 - 1.30 mg/dL Final Testing performed at [address] [address] BUN/CREAT Date Value Range Status 02/28/2014 20 Final Testing performed at [address] [address] TOTAL PROTEIN Date Value Range Status 02/28/2014 6.1* 6.3 - 8.2 g/dL Final Testing performed at [address] [address] GLOBULIN Date Value Range Status 02/28/2014 2.1 1.3 - 4.9 g/dL Final Testing performed at [address] [address] TBIL Date Value Range Status 02/28/2014 1.4 0.1 - 1.5 mg/dL Final Testing performed at [address] [address] ALT Date Value Range Status 02/28/2014 27 10 - 65 U/L Final Testing performed at [address] [address] AST Date Value Range Status 02/28/2014 31 10 - 45 U/L Final Testing performed at [address] [address] SODIUM Date Value Range Status 02/28/2014 138 135 - 143 mmol/L Final Testing performed at [facility], [address] [place] [address] POTASSIUM Date Value Range Status 02/28/2014 3.4* 3.5 - 4.9 mmol/L Final Testing performed at [facility], [address] [place] [address] CHLORIDE Date Value Range Status 02/28/2014 108 99 - 109 mmol/L Final Testing performed at [address] [address] CO2 Date Value Range Status 02/28/2014 21* 23 - 32 mmol/L Final Testing performed at [facility], [address] [place] [address] ANION GAP AGAP Date Value Range Status 02/28/2014 12 5 - 20 mmol/L Final Testing performed at [facility], [address] [place] [address] Xr Chest Pa And Lateral 02/27/2014 PINA GYA XR CHEST 2 VIEW FRONTAL AND LATERAL [...] 3-D reconstructi ons were performed using the oNoise 3-D software and sent to PACS. Oral Contrast: None I V contrast: 100 mL IsoVue 370 COMPARISON: None. 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 Singletary in [place] in December 2013 at [facility] which showed minimal occlusive disease. One artery was 25% and another was 15%, per patient. I requested official cardiac catheterization report from [place] and still waiting for it to come. [...] are the prescriptions that you need to picker / packer. You may get these medications from any pharmacy. amLODIPine 5 MG tablet pantoprazole 40 MG tablet Activity: activity as tolerated Diet: cardiac diet Wound Care: not applicable There are no Patient Instructions on file for this visit. Per Pt None Chaka Ortiz MD [address] [facility] [id number] In 1 week Ariel Pulido MD [address] [facility] [employer] [phone] In 1 week Daljit Singletary MD [address] [facility] [address] [facility] [address] In 1 week Signed: DEV MONTANO 02/28/2014 10:45 AM Addendum:ADDENDUM I just received a cardiac catheterization report from [facility], [place], which was done on December 25, 2013. [...] + + + +---------+ + + | [place]-3 Fatty | CAPS, one capsule by | [...] 02/28/141211 Date of Service: 02/28/141210 Status: Signed Supervisor [employer]: Bijal Sosa RN (Registered Nurse) Discharge instructions [...] 02/28/1411 Date of Service: 02/28/1411 Status: Signed Supervisor [employer] Treatment Plant: Mary Wetzel RPH (Pharmacist) Clinical Pharmacy Note: [...] | | | | | | [place] [address] | | | | | | [phone] | | | | | | | | +--------+ + + + + | 05/01/ | Procedure | Cardiology | | | | 2019 | visit | | | | +--------+ + + + + | 05/01/ | Office | Cardiology | Silvia | | | 2019 | Visit | | [address] | | | | | | [place], | | | | | | [place] [address] | | | | | | [phone] | | | | | | | | +--------+ + + + + | 05/21/ | Implant | Cardiology | Daljit Singletary, | Remote Device | | 2020 | Monitor | | [address] [place] | Interrogation | | | | | [facility], | (Primary Dx); | | | | | [place] [address] | Pacemaker; | | | | | [phone] | Sinoatrial node | | | | [...] EXTERNAL | | | | performed at [facility];[address] | | LAB | | | | [address];[place], [place] | | | | | | [address] | | | | + + + [...] | | | | | | ACUTE MD Testing | | | | | | performed at [facility];[address] | | | | | | [address] [facility];[place], [place] | | | | | | [address] | | | | + + + [...] | | | | | [place] [address] | | | | + + + + + + | Red Blood | 4.68Comment: Testing | 4.20 - 5.70 | EXTERNAL | | | Cells | performed at [facility], [address] | M/uL | LAB | | | Counted | [address], | | | | | | [place] [address] | | | | + + + + + + | Hemoglobin | 15.3Comment: Testing | 13.2 - 17.0 | EXTERNAL | | | | performed at [facility], [address] | g/dL | LAB | | | | [address], | | | | | | [place] [address] | | | | + + + + + + | Hematocrit, | 44.2Comment: Testing | 39.0 - 50.0 % | EXTERNAL | | | POC | performed at [facility], [address] | | LAB | | | | [address], | | | | | | [place] [address] | | | | + + + + + + | MCV | 94.5Comment: Testing | 80.0 - 100.0 fl | EXTERNAL | | | | performed at [facility], [address] | | LAB | | | | [address], | | | | | | [place] [address] | | | | + + + + + + | MCH | 32.6Comment: Testing | 27.0 - 34.0 pg | EXTERNAL | | | | performed at [facility], [address] | | LAB | | | | [address], | | | | | | [place] [address] | | | | + + + + + + | MCHC | 34.5Comment: Testing | 32.0 - 35.5 | EXTERNAL | | | | performed at [facility], [address] | g/dL | LAB | | | | [employer] [address], | | | | | | [place] [address] | | | | + + + + + + | RDW-CV | 45.5Comment: Testing | 37 - 53 fl | EXTERNAL | | | | performed at [facility], [address] | | LAB | | | | [address], | | | | | | [place] [address] | | | | + + + + + + | Platelet | 156Comment: Testing | 150 - 400 K/uL | EXTERNAL | | | Count | performed at [facility], [address] | | LAB | | | Plasma | [address], | | | | | | [place] [address] | | | | + + + + + + | MPV | 8.8Comment: Testing | fl | EXTERNAL | | | | performed at [facility], [address] | | LAB | | | | [address], | | | | | | [place] [address] | | | | + + + + + + | Differentia | AUTOMATEDComment: | | EXTERNAL | | | l Type | Testing performed at | | LAB | | | | [facility], [address] | | | | | | [place] | | | | | | [address] | | | | + + + + + + | % Segmented | 57.7Comment: Testing | % | EXTERNAL | | | | performed at [facility], [address] | | LAB | | | Neutrophils | [address], | | | | | | [place] [address] | | | | + + + + + + | % | 31.8Comment: Testing | % | EXTERNAL | | | Lymphocytes | performed at [facility], [address] | | LAB | | | | [address], | | | | | | [place] [address] | | | | + + + + + + | % Monocytes | 9.2Comment: Testing | % | EXTERNAL | | | | performed at [facility], [address] | | LAB | | | | [address], | | | | | | [place] [address] | | | | + + + + + + | % | 0.9Comment: Testing | % | EXTERNAL | | | Eosinophils | performed at [facility], [address] | | LAB | | | | [address], | | | | | | [place] [address] | | | | + + + + + + | % Basophils | 0.4Comment: Testing | % | EXTERNAL | | | | performed at [facility], [address] | | LAB | | | | [address], | | | | | | [place] [address] | | | | + + + + + + | Absolute | 3.9Comment: Testing | 1.9 - 7.4 K/uL | EXTERNAL | | | Segmented | performed at [facility], [address] | | LAB | | | Neutrophils | [address], | | | | | | [place] [address] | | | | + + + + + + | Absolute | 2.1Comment: Testing | 1.0 - 3.9 K/uL | EXTERNAL | | | Lymphocytes | performed at [facility], [address] | | LAB | | | | [address], | | | | | | [place] [address] | | | | + + + + + + | Absolute | 0.6Comment: Testing | 0 - 0.8 K/uL | EXTERNAL | | | Monocytes | performed at [facility], [address] | | LAB | | | | [address], | | | | | | [place] [address] | | | | + + + + + + | Absolute | 0.1Comment: Testing | 0 - 0.5 K/uL | EXTERNAL | | | Eosinophils | performed at [facility], [address] | | LAB | | | | [address], | | | | | | [place] [address] | | | | + + + + + + | Absolute | 0.0Comment: Testing | 0 - 0.1 K/uL | EXTERNAL | | | Basophils | performed at [facility], [address] | | LAB | | | | [address], | | | | | | [place] [address] | | | | + + + [...] EXTERNAL | | | | performed at [facility], [address] | | LAB | | | | [address], | | | | | | [place] [address] | | | | + + + [...] EXTERNAL | | | | performed at [facility], [address] | | LAB | | | | [address], | | | | | | [place] [address] | | | | + + + [...] EXTERNAL | | | | performed at [facility];[address] | | LAB | | | | [address];[place] | | | | | | [address] | | | | + + + [...] | | | | | [place] [address] | | | | + + + + + + | Triglycerid | 37Comment: Testing | mg/dL | EXTERNAL | | | es | performed at [facility], [address] | | LAB | | | | [address], | | | | | | [place] [address] | | | | + + + + + + | HDL | 35 (L)Comment: Testing | mg/dL | EXTERNAL | | | | performed at [facility], [address] | | LAB | | | | [address], | | | | | | [place] [address] | | | | + + + + + + | LDL, | 67Comment: Testing | mg/dL | EXTERNAL | | | Calculated | performed at [facility], [address] | | LAB | | | | [address], | | | | | | [place] [address] | | | | + + + [...] | | | | | [place] [address] | | | | + + + + + + | K | 3.4 (L)Comment: Testing | 3.5 - 4.9 | EXTERNAL | | | | performed at [facility], [address] | mmol/L | LAB | | | | [address], | | | | | | [place] [address] | | | | + + + + + + | Cl | 108Comment: Testing | 99 - 109 mmol/L | EXTERNAL | | | | performed at [facility], [address] | | LAB | | | | [address], | | | | | | [place] [address] | | | | + + + + + + | CO2 | 21 (L)Comment: Testing | 23 - 32 mmol/L | EXTERNAL | | | | performed at [facility], [address] | | LAB | | | | [address], | | | | | | [place] [address] | | | | + + + + + + | Anion Gap | 12Comment: Testing | 5 - 20 mmol/L | EXTERNAL | | | | performed at [facility], [address] | | LAB | | | | [address], | | | | | | [place] [address] | | | | + + + + + + | Glucose, | 107 (H)Comment: Testing | 65 - 99 mg/dL | EXTERNAL | | | Fasting | performed at [facility], [address] | | LAB | | | | [address], | | | | | | [place] [address] | | | | + + + + + + | BUN | 15Comment: Testing | 8 - 25 mg/dL | EXTERNAL | | | | performed at [facility], [address] | | LAB | | | | [address], | | | | | | [place] [address] | | | | + + + + + + | Creatinine | 0.74Comment: Testing | 0.70 - 1.30 | EXTERNAL | | | | performed at [facility], [address] | mg/dL | LAB | | | | [address], | | | | | | [place] [address] | | | | + + + + + + | BUN/Creatin | 20Comment: Testing | | EXTERNAL | | | ine Ratio | performed at [facility], [address] | | LAB | | | | [address], | | | | | | [place] [address] | | | | + + + + + + | Calcium | 8.9Comment: Testing | 8.5 - 10.2 | EXTERNAL | | | | performed at [facility], [address] | mg/dL | LAB | | | | [address], | | | | | | [place] [address] | | | | + + + + + + | Protein, | 6.1 (L)Comment: Testing | 6.3 - 8.2 g/dL | EXTERNAL | | | Total | performed at [facility], [address] | | LAB | | | | [employer] [address], | | | | | | [place] [address] | | | | + + + + + + | Albumin | 4.0Comment: Testing | 3.6 - 5.0 g/dL | EXTERNAL | | | | performed at [facility], [address] | | LAB | | | | [address], | | | | | | [place] [address] | | | | + + + + + + | Globulin | 2.1Comment: Testing | 1.3 - 4.9 g/dL | EXTERNAL | | | | performed at [facility], [address] | | LAB | | | | [address], | | | | | | [place] [address] | | | | + + + + + + | A/G Ratio | 1.9Comment: Testing | 1.0 - 2.4 | EXTERNAL | | | | performed at [facility], [address] | | LAB | | | | [address], | | | | | | [place] [address] | | | | + + + + + + | Bilirubin | 1.4Comment: Testing | 0.1 - 1.5 mg/dL | EXTERNAL | | | Total | performed at [facility], [address] | | LAB | | | | [address], | | | | | | [place], [place] [address] | | | | + + + + + + | ALP, | 46Comment: Testing | 35 - 115 U/L | EXTERNAL | | | External | performed at [facility], [address] | | LAB | | | | [address], | | | | | | [place] [address] | | | | + + + + + + | AST | 31Comment: Testing | 10 - 45 U/L | EXTERNAL | | | | performed at [facility], [address] | | LAB | | | | [address], | | | | | | [place] [address] | | | | + + + + + + | ALT | 27Comment: Testing | 10 - 65 U/L | EXTERNAL | | | | performed at [facility], [address] | | LAB | | | | [address], | | | | | | [place] [address] | | | | + + + [...] | | | | | | at [facility], [address] | | | | | | [address], | | | | | | [place] [address] | | | | + + + [...] + + | Historically converted procedure from [facility] environment | EXTERNAL LAB | + + [...] EXTERNAL | | | | performed at [facility];[address] | | LAB | | | | [address];[place], [place] | | | | | | [address] | | | | + + + [...] | | | | | | ACUTE MD Testing | | | | | | performed at [facility];[address] | | | | | | [facility];[place], [place] | | | | | | [address] | | | | + + + [...] EXTERNAL | | | | performed at [facility];[address] | | LAB | | | [address];[place] | | | | | | [address] | | | | + + + [...] were | | | performed using the oNoise 3-D software and sent to PACS. Oral | | | Contrast: None IV contrast: 100 mL IsoVue 370 COMPARISON: None. 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 Oral Contrast: NoneIV contrast: 100 | | mL IsoVue 370 COMPARISON:None. FINDINGS: CHEST: The director of scout work view shows a pacemaker via | | [...] Rad Conversion - 07/07/2019 10:30 PM PDT PNIA LEVINE CHEST 2 VIEW FRONTAL | | [...] EXTERNAL | | | | performed at [facility];[address] | | LAB | | | | [address];[place] | | | | | | [address] | | | | + + + + + -+ | Red Blood | 5.19Comment: Testing | 4.20 - 5.70 | EXTERNAL | | | Cells | performed at [facility];[address] | M/uL | LAB | | | Counted | [address];[place] | | | | | | [address] | | | | + + + + + -+ | Hemoglobin | 16.8Comment: Testing | 13.2 - 17.0 | EXTERNAL | | | | performed at [facility];[address] | g/dL | LAB | | | | [address];[place] | | | | | | [address] | | | | + + + + + -+ | Hematocrit, | 49.5Comment: Testing | 39.0 - 50.0 % | EXTERNAL | | | POC | performed at [facility];[address] | | LAB | | | | [address];[place] | | | | | | [address] | | | | + + + + + -+ | MCV | 95.4Comment: Testing | 80.0 - 100.0 fl | EXTERNAL | | | | performed at [facility];[address] | | LAB | | | | [address];[place] | | | | | | [address] | | | | + + + + + -+ | MCH | 32.4Comment: Testing | 27.0 - 34.0 pg | EXTERNAL | | | | performed at [facility];[address] | | LAB | | | | [address];[place] | | | | | | [address] | | | | + + + + + -+ | MCHC | 34.0Comment: Testing | 32.0 - 35.5 | EXTERNAL | | | | performed at [facility];[address] | g/dL | LAB | | | | [address];[place] | | | | | | [address] | | | | + + + + + -+ | RDW-CV | 46.8Comment: Testing | 37 - 53 fl | EXTERNAL | | | | performed at [facility];[address] | | LAB | | | | [address];[place] | | | | | | [address] | | | | + + + + + -+ | Platelet | 179Comment: Testing | 150 - 400 K/uL | EXTERNAL | | | Count | performed at [facility];[address] | | LAB | | | Plasma | [address];[place] | | | | | | [address] | | | | + + + + + -+ | MPV | 8.6Comment: Testing | fl | EXTERNAL | | | | performed at [facility];[address] | | LAB | | | | [address];[place] | | | | | | [address] | | | | + + + + + -+ | Differentia | AUTOMATEDComment: | | EXTERNAL | | | l Type | Testing performed at | | LAB | | | | [facility];[address] | [address];[place] [address] | | | | + + + + + -+ | % Segmented | 62.4Comment: Testing | % | EXTERNAL | | | | performed at [facility];[address] | | LAB | | | Neutrophils | [address];[place] | | | | | | [address] | | | | + + + + + -+ | % | 26.3Comment: Testing | % | EXTERNAL | | | Lymphocytes | performed at [facility];[address] | | LAB | | | | [address];[place] | | | | | | [address] | | | | + + + + + -+ | % Monocytes | 10.3Comment: Testing | % | EXTERNAL | | | | performed at [facility];[address] | | LAB | | | | [address];[place] | | | | | | [address] | | | | + + + + + -+ | % | 0.5Comment: Testing | % | EXTERNAL | | | Eosinophils | performed at [facility];[address] | | LAB | | | | [address];[place] | | | | | | [address] | | | | + + + + + -+ | % Basophils | 0.5Comment: Testing | % | EXTERNAL | | | | performed at [facility];[address] | | LAB | | | | [address];[place] | | | | | | [address] | | | | + + + + + -+ | Absolute | 6.3Comment: Testing | 1.9 - 7.4 K/uL | EXTERNAL | | | Segmented | performed at [facility];[address] | | LAB | | | Neutrophils | [address];[place] | | | | | | [address] | | | | + + + + + -+ | Absolute | 2.7Comment: Testing | 1.0 - 3.9 K/uL | EXTERNAL | | | Lymphocytes | performed at [facility];[address] | | LAB | | | | [address];[place] | | | | | | [address] | | | | + + + + + -+ | Absolute | 1.0 (H)Comment: Testing | 0 - 0.8 K/uL | EXTERNAL | | | Monocytes | performed at [facility];[address] | | LAB | | | | [address];[place] | | | | | | [address] | | | | + + + + + -+ | Absolute | 0.0Comment: Testing | 0 - 0.5 K/uL | EXTERNAL | | | Eosinophils | performed at [facility];[address] | | LAB | | | | [address];[place] | | | | | | [address] | | | | + + + + + -+ | Absolute | 0.1Comment: Testing | 0 - 0.1 K/uL | EXTERNAL | | | Basophils | performed at [facility];[address] | | LAB | | | | [address];[place] | | | | | | [address] | | | | + + + + + -+ | Na | 139Comment: Testing | 135 - 143 | EXTERNAL | | | | performed at [facility];[address] | mmol/L | LAB | | | | [address];[place] | | | | | | [address] | | | | + + + + + -+ | K | 3.4 (L)Comment: Testing | 3.5 - 4.9 | EXTERNAL | | | | performed at [facility];[address] | mmol/L | LAB | | | | [address];[place] | | | | | | [address] | | | | + + + + + -+ | Cl | 108Comment: Testing | 99 - 109 mmol/L | EXTERNAL | | | | performed at [facility];[address] | | LAB | | | | [address];[place] | | | | | | [address] | | | | + + + + + -+ | CO2 | 21 (L)Comment: Testing | 23 - 32 mmol/L | EXTERNAL | | | | performed at [facility];[address] | | LAB | | | | [address];[place] | | | | | | [address] | | | | + + + + + -+ | Anion Gap | 14Comment: Testing | 5 - 20 mmol/L | EXTERNAL | | | | performed at [facility];[address] | | LAB | | | | [address];[place] | | | | | | [address] | | | | + + + + + -+ | Glucose, | 124 (H)Comment: Testing | 65 - 99 mg/dL | EXTERNAL | | | Fasting | performed at [facility];[address] | | LAB | | | | [address];[place] | | | | | | [address] | | | | + + + + + -+ | BUN | 20Comment: Testing | 8 - 25 mg/dL | EXTERNAL | | | | performed at [facility];[address] | | LAB | | | | [address];[place] | | | | | | [address] | | | | + + + + + -+ | Creatinine | 0.97Comment: Testing | 0.70 - 1.30 | EXTERNAL | | | | performed at [facility];[address] | mg/dL | LAB | | | | [address];[place] | | | | | | [address] | | | | + + + + + -+ | BUN/Creatin | 21Comment: Testing | | EXTERNAL | | | ine Ratio | performed at [facility];[address] | | LAB | | | | [address];[place] | | | | | | [address] | | | | + + + + + -+ | Calcium | 8.7Comment: Testing | 8.5 - 10.2 | EXTERNAL | | | | performed at [facility];[address] | mg/dL | LAB | | | | [address];[place] | | | | | | [address] | | | | + + + + + -+ | Protein, | 7.6Comment: Testing | 6.3 - 8.2 g/dL | EXTERNAL | | | Total | performed at [facility];[address] | | LAB | | | | [address];[place] | | | | | | [address] | | | | + + + + + -+ | Albumin | 4.2Comment: Testing | 3.6 - 5.0 g/dL | EXTERNAL | | | | performed at [facility];[address] | | LAB | | | | [address];[place] | | | | | | [address] | | | | + + + + + -+ | Globulin | 3.4Comment: Testing | 1.3 - 4.9 g/dL | EXTERNAL | | | | performed at [facility];[address] | | LAB | | | | [address];[place] | | | | | | [address] | | | | + + + + + -+ | A/G Ratio | 1.2Comment: Testing | 1.0 - 2.4 | EXTERNAL | | | | performed at [facility];[address] | | LAB | | | | [address];[place] | | | | | | [address] | | | | + + + + + -+ | Bilirubin | 1.1Comment: Testing | 0.1 - 1.5 mg/dL | EXTERNAL | | | Total | performed at [facility];[address] | | LAB | | | | [address];[place] | | | | | | [address] | | | | + + + + + -+ | ALP, | 77Comment: Testing | 35 - 115 U/L | EXTERNAL | | | External | performed at [facility] | | LAB | | | | [address];[place] | | | | | | [address] | | | | + + + + + -+ | AST | 35Comment: Testing | 10 - 45 U/L | EXTERNAL | | | | performed at [facility] | | LAB | | | | [address];[place] | | | | | | [address] | | | | + + + + + -+ | ALT | 43Comment: Testing | 10 - 65 U/L | EXTERNAL | | | | performed at [facility] | | LAB | | | | [address];[place] | | | | | | [address] | | | | + + + [...] | | | | | | at [facility];[address] | | | | | | [address];[place] [address] | | | | + + + + + -+ | CK, Total | 510 (H)Comment: Testing | 55 - 400 U/L | EXTERNAL | | | | performed at [facility] | | LAB | | | | [address];[place] | | | | | | [address] | | | | + + + [...] | | | | | performed at [facility];[address] | | | | | | [address];[place] | | | | | | [address] | | | | + + + + + -+ | aPTT, | 24Comment: Testing | 23 - 32 seconds | EXTERNAL | | | Patient | performed at [facility];[address] | | LAB | | | | [address];[place] | | | | | | [address] | | | | + + + + + -+ | CK-MB | 9.3 (H)Comment: Testing | 0.5 - 3.6 ng/mL | EXTERNAL | | | | performed at [facility] | | LAB | | | | [address] [facility];[place], [place] | | | | | | [address] | | | | + + + [...] EXTERNAL | | | | performed at [facility];[address] | uIU/mL | LAB | | | | [address];[place] | | | | | | [address] | | | | + + + [...] EXTERNAL | | | | performed at [facility] | | LAB | | | | [address];[place], [place] | | | | | | [address] | | | | + + + [...] (500), | | | | | | video editor TERESE NINA (2) | | | | [...]
--- OUTSIDE RECORDS SUMMARY | ~2020-04-13 | XMS | Encounter Summary ---
Demographics + + + | Address | [address] | | | [place] [address] | + + + | Home Phone [...] Providers + +------+ + | Care Social Work Case Manager Name | Role | Phone | [...] + + | 08/30/ | Refill | [facility] | Kirk French | Medication Refill | | 2019 | | [facility] | MD Brea [address] | | | | | [address] | [address] | | | | | [address] | [place] [address] | | | | | [place], [place] | [phone] | | | | | [address] | | | | | | [phone] | | | +--------+--------+ + + + [...] | | | | | | [place] [address] | | | | | | [phone] | | | | | | | | +--------+ + + + + | 05/01/ | Procedure | Cardiology | | | | 2019 | visit | | | | +--------+ + + + + | 05/01/ | Office | Cardiology | Silvia, | | | 2019 | Visit | | PARISA [address] | | | | | | [place], | | | | | | [place] [address] | | | | | | [phone] | | | | | | | | +--------+ + + + + | 05/21/ | Implant | Cardiology | Daljit Singletary, | Remote Device | | 2019 | Monitor | | [address] [facility] | Interrogation | | | | | [place], | (Primary Dx); | | | | | [place] [address] | Pacemaker; | | | | | [phone] | Sinoatrial node | | | | | | dysfunction (HCC) | | | | | | with symptomatic | | | | | | bradycardia | +--------+ + + + + documented as of this encounter Visit Diagnoses Not on filedocumented in this encounter"
--- OUTSIDE RECORDS SUMMARY | ~2020-04-13 | XMS | Encounter Summary ---
Demographics + + + | Address | [address] | | | [place] [address] | + + + | Home Phone [...] Team Providers + +------+ + | Care Mechanical Oxidizer Name | Role | Phone | + [...] | [facility] [place] | Silvia, | Appointment | | 2017 | | CARDIOLOGY [address] | Janeen LOCK EXPERT [address] | | | | | [place], | [place], | | | | | [place] [address] | [place] [address] | | | | | [phone] | [phone] | | | | | | | [...] W | | | | | | [place], | | | | | | [place] [address] | | | | | | [phone] | | | | | | | | +--------+ + + + + | 05/01/ | Procedure | Cardiology | | | | 2019 | visit | | | | +--------+ + + + + | 05/01/ | Office | Cardiology | Silvia, | | | 2019 | Visit | | PARISA [place] [address] | | | | | | [place], | | | | | | [place] [address] | | | | | | [phone] | | | | | | | | +--------+ + + + + | 05/21/ | Implant | Cardiology | Daljit Singletary, | Remote Device | | 2019 | Monitor | | [address] [facility] | Interrogation | | | | | [place], | (Primary Dx); | | | | | [place] [address] | Pacemaker; | | | | | [phone] | Sinoatrial node | | | | | | dysfunction (HCC) | | | | | | with symptomatic | | | | | | bradycardia | +--------+ + + + + documented as of this encounter Visit Diagnoses Not on filedocumented in this encounter"
--- OUTSIDE RECORDS SUMMARY | ~2020-04-13 | XMS | Encounter Summary ---
Demographics + + + | Address | [address] [place] [address] [address] | | | [place] [address] | + + + | Home Phone [...] + + + | Author | [facility] | + + + | Organization | [facility] | + + + | Address | Unknown | + + + | Phone | Unavailable | + + + Support + + + + + | Name | Relationship | Address | Phone | + + + + + | Rachel Valencia | ELIEZER | [place] | | | | | [address] | | + + + + + Care Team Providers + +------+ + | Care Brickmason Name | Role | Phone | + +------+ + | Darion Holden DO | PCP | | + +------+ + Reason for Visit +--------+ + | Reason | Comments | +--------+ + | Other | stool lab results | +--------+ + Encounter Details +--------+ + + + + | Date | Type | Department | Care Team | Description | +--------+ + + + + | 10/11/ | Telephone | [facility] | Bridgette Rios, | Other (stool lab | | 2019 | | Center at [facility] [address] | MD [address] | results) | | | | [address] | [place], [place] | | | | | Mailcode: [place] | [address] | | | | | for Health and | [phone] | | | | | [facility], [facility] [address] | | | | | | [facility] [place] | | | | | | [address] | | | | | | [phone] | | | +--------+ + + + [...]
--- OUTSIDE RECORDS SUMMARY | ~2020-04-13 | XMS | Encounter Summary ---
Demographics + + + | Address | [address] | | | [place] [address] | + + + | Home Phone [...] Team Providers + +------+ + | Care Cheese Grader Name | Role | Phone | + [...] [place] | | | | | [address] [place], [place] | [place] [address] | | | | | [address] | [phone] | | | | | [phone] | | | +--------+ + + + [...] | | | | | | [place] [address] | | | | | | [phone] | | | | | | | | +--------+ + + + + | 05/01/ | Procedure | Cardiology | | | | 2019 | visit | | | | +--------+ + + + + | 05/01/ | Office | Cardiology | Silvia, | | | 2019 | Visit | | PARISA [address] | | | | | | [place], | | | | | | [place] [address] | | | | | | [phone] | | | | | | | | +--------+ + + + + | 05/21/ | Implant | Cardiology | Daljit Singletary, | Remote Device | 2019 | Monitor | | [facility] | Interrogation | | | | | [place], | (Primary Dx); | | | | | [place] [address] | Pacemaker; | | | | | [phone] | Sinoatrial node | | | | | | dysfunction (HCC) | | | | | | with symptomatic | | | | | | bradycardia | +--------+ + + + + documented as of this encounter Visit Diagnoses Not on filedocumented in this encounter"
--- OUTSIDE RECORDS SUMMARY | ~2020-04-13 | XMS | Encounter Summary ---
Demographics + + + | Address | [address] | | | [place] [address] | + + + | Home Phone [...] Team Providers + +------+ + | Care Perinatology Physician Name | Role | Phone | [...] Provider Unknown | | | | | [place], [place] | [phone] | | | | | [address] | | | | | | [phone] | | | +--------+ + + + [...] + + + +---------+ + + | [place]-3 Fatty | CAPS, one capsule by | [...] | | | | | | | #[id number], exp 07/2016 | | | | | [...] | | | | | | [place] [address] | | | | | | [phone] | | | | | | | | +--------+ + + + + | 05/01/ | Procedure | Cardiology | | | | 2019 | visit | | | | +--------+ + + + + | 05/01/ | Office | Cardiology | Silvia, | | | 2019 | Visit | | PARISA Vernon [address] | | | | | | [place], | | | | | | [place] [address] | | | | | | [phone] | | | | | | | | +--------+ + + + + | 05/21/ | Implant | Cardiology | Daljit Singletary, | Remote Device | | 2020 | Monitor | | [address] [place] | Interrogation | | | | | [place], | (Primary Dx); | | | | | [place] [address] | Pacemaker; | | | | | [phone] | Sinoatrial node | | | | [...]
--- OUTSIDE RECORDS SUMMARY | ~2020-04-13 | XMS | Encounter Summary ---
Demographics + + + | Address | [address] | | | [place] [address] | + + + | Home Phone [...] Team Providers + +------+ + | Care Jeep Mechanic Name | Role | Phone | + +------+ + | Kirk French MD | PCP | | + +------+ + Encounter Details +--------+ + + + + | Date | Type | Department | Care Team | Description | +--------+ + + + + | 03/15/ | Hospital | [facility] | Conversion | | | 2017 | Encounter | [facility] | Transaction, | | | | | [address] | Provider Unknown | | | | | [address] [place] | [phone] | | | | | [address] | | | | | | [phone] | Kirk French | | | | | | MD Brea [address] | | | | | | [address] [place], | | | | | | [place] [address] | | | | | | [phone] | | | | | | | [...] + + + +---------+ + + | [place]-3 Fatty | CAPS, one capsule by | [...] | | | | | | [place] [address] | | | | | | [phone] | | | | | | | | +--------+ + + + + | 05/01/ | Procedure | Cardiology | | | | 2019 | visit | | | | +--------+ + + + + | 05/01/ | Office | Cardiology | Silvia, | | | 2019 | Visit | | PARISA Vernon [address] | | | | | | [place], | | | | | | [place] [address] | | | | | | [phone] | | | | | | | | +--------+ + + + + | 05/21/ | Implant | Cardiology | Daljit Singletary, | Remote Device | | 2019 | Monitor | | [address] [place] [place] | Interrogation | | | | | [place], | (Primary Dx); | | | | | [place] [address] | Pacemaker; | | | | | [phone] | Sinoatrial node | | | | | | dysfunction (HCC) | | | | | | with symptomatic | | | | | | bradycardia | +--------+ + + + + documented as of this encounter Visit Diagnoses Not on filedocumented in this encounter"
--- OUTSIDE RECORDS SUMMARY | ~2020-04-13 | XMS | Encounter Summary ---
Demographics + + + | Address | [address] | | | [place] [address] | + + + | Home Phone [...] Team Providers + +------+ + | Care Criminal Justice Program Director Name | Role | Phone | [...] | CARDIOLOGY [address] | [address] [place] | (Primary Dx); | | | | [place], | [place], | Tachycardia; | | | | [place] [address] | [place] [address] | Coronary artery | | | | [phone] | [phone] | disease involving | | | | | | ely shoshone coronary | | | | | | artery of ely shoshone | | | | | | heart [...] | | | | | | [place] [address] | | | | | | [phone] | | | | | | | | +--------+ + + + + | 05/01/ | Procedure | Cardiology | | | | 2019 | visit | | | | +--------+ + + + + | 05/01/ | Office | Cardiology | Silvia, | | | 2019 | Visit | | PARISA Vernon [address] | | | | | | [place], | | | | | | [place] [address] | | | | | | [phone] | | | | | | | | +--------+ + + + + | 05/21/ | Implant | Cardiology | Daljit Singletary, | Remote Device | 2019 | Monitor | | [facility] | Interrogation | | | | | 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
--- OUTSIDE RECORDS SUMMARY | ~2020-04-13 | XMS | Encounter Summary ---
Demographics + + + | Address | [address] | | | [place] [address] | + + + | Home Phone [...] Providers + +------+ + | Care Telephone Diaphragm Assembler Name | Role | Phone | [...] | Telephone | [facility] [place] | [place], | Other (not feeling | | 2013 | | [place] [address] | PAR[place] [address] | [place]) | | | | [place], | [place], | | | | | [place] [address] | [place] [address] | | | | | [phone] | [phone] | | | | | | | [...] W | | | | | | [place], | | | | | | [place] [address] | | | | | | [phone] | | | | | | | | +--------+ + + + + | 05/01/ | Procedure | Cardiology | | | | 2019 | visit | | | | +--------+ + + + + | 05/01/ | Office | Cardiology | Silvia, | | | 2019 | Visit | | PARISA Vernon [address] | | | | | | [place], | | | | | | [place] [address] | | | | | | [phone] | | | | | | | | +--------+ + + + + | 05/21/ | Implant | Cardiology | Daljit Singletary, | Remote Device | | 2019 | Monitor | | [address] [facility] | Interrogation | | | | | [place], | (Primary Dx); | | | | | [place] [address] | Pacemaker; | | | | | [phone] | Sinoatrial node | | | | | | dysfunction (HCC) | | | | | | with symptomatic | | | | | | bradycardia | +--------+ + + + + documented as of this encounter Visit Diagnoses Not on filedocumented in this encounter"
--- OUTSIDE RECORDS SUMMARY | ~2020-04-13 | XMS | Encounter Summary ---
Demographics + + + | Address | [address] | | | [place] [address] | + + + | Home Phone [...] Team Providers + +------+ + | Care Pancake Professional Name | Role | Phone | [...] | | | Diarrhea/ | [address] | [place], [place] | | | | | Rectal | [place] | [address] | | | | | Bleeding | [address] | Phone: | | | | | from [facility] | Phone: | [phone] | | | | | referral. | [phone] | Fax: | | | | | | Fax: | [phone] | | | | | | [phone] | | + + + + + [...] + + | 01/21/ | Telephone | [facility] | Kirk French | Other (wanted to let | | 2019 | | [facility] | MD Brea [address] | us know the St. | | | | PRIMARY CARE [address] | [address] | Apolonia'gena cancelled his | | | | [address] | [place] [address] | appointment for a | | | | [place], [place] | [phone] | colonoscopy) | | | | [address] | | | | | | [phone] | | | +--------+ + + + [...] | | | | | | [place] [address] | | | | | | [phone] | | | | | | | | +--------+ + + + + | 05/01/ | Procedure | Cardiology | | | | 2019 | visit | | | | +--------+ + + + + | 05/01/ | Office | Cardiology | Silvia, | | | 2019 | Visit | | PARISA Vernon [address] | | | | | | [employer] [place], | | | | | | [place] [address] | | | | | | [phone] | | | | | | | | +--------+ + + + + | 05/21/ | Implant | Cardiology | Dalijt Singletary, | Remote Device | | 2019 | Monitor | | MD [place] [employer] | Interrogation | | | | | [place], | (Primary Dx); | | | | | [place] [address] | Pacemaker; | | | | | [phone] | Sinoatrial node | | | | [...]
--- OUTSIDE RECORDS SUMMARY | ~2020-04-13 | XMS | Encounter Summary ---
Demographics + + + | Address | [address] | | | [place] [address] | + + + | Home Phone [...] Team Providers + +------+ + | Care Cmm Operator Name | Role | Phone | [...] Eva [place] | | | | | [place], [place] | [address] | | | | | [address] | [place] [address] | | | | | [phone] | [phone] | | | | | | | [...] | | | | | | [place] [address] | | | | | | [phone] | | | | | | | [...] | | | | | | [place] [address] | | | | | | [phone] | | | | | | | | +--------+ + + + + | 05/21/ | Implant | Cardiology | Daljit Singletary, | Remote Device | | 2019 | Monitor | | MD [address] [facility] | Interrogation | | | | | [place], | (Primary Dx); | | | | | [place] [address] | Pacemaker; | | | | | [phone] | Sinoatrial node | | | | [...] +--------+ + + + | EXTERNAL LAB: [facility] | Routin | 11/25/2018 | | Results [...] + + + | Red Blood | 4.95 | 4.20 - 5.70 | EXTERNAL | | | Cells | | 10*6/uL | LAB | | | Counted | | | | | + + + + + + | Hemoglobin | 17.4 (H) | 13.2 - 17.0 [...] | | | | using the MDRD IDMS | | | | | | traceable [...]
--- OUTSIDE RECORDS SUMMARY | ~2020-04-13 | XMS | Encounter Summary ---
Demographics + + + | Address | [address] | | | [place] [address] | + + + | Home Phone [...] Providers + +------+ + | Care Spray Stainer Name | Role | Phone | + [...] | RN | | | | | [place], | | | | | | [place] [address] | | | | | | [phone] | | | +--------+ + + + [...] | | | | | | [place] [address] | | | | | | [phone] | | | | | | | | +--------+ + + + + | 05/01/ | Procedure | Cardiology | | | | 2019 | visit | | | | +--------+ + + + + | 05/01/ | Office | Cardiology | Silvia, | | | 2019 | Visit | | PARISA Vernon [address] | | | | | | [place], | | | | | | [place] [address] | | | | | | [phone] | | | | | | | | +--------+ + + + + | 05/21/ | Implant | Cardiology | Daljit Singletary, | Remote Device | 2019 | Monitor | | [address] [place] | Interrogation | | | | | [place], | (Primary Dx); | | | | | [place] [address] | Pacemaker; | | | | | [phone] | Sinoatrial node | | | | | | dysfunction (HCC) | | | | | | with symptomatic | | | | | | bradycardia | +--------+ + + + + documented as of this encounter Visit Diagnoses Not on filedocumented in this encounter"
--- OUTSIDE RECORDS SUMMARY | ~2020-04-13 | XMS | Encounter Summary ---
Demographics + + + | Address | [address] [place] [address] [address] | | | [place] [address] | + + + | Home Phone [...] Author + + + | Author | [facility] | + + + | Organization | [facility] | + + + | Address | Unknown | + + + | Phone | Unavailable | + + + Support + + + + + | Name | Relationship | Address | Phone | + + + + + | Rachel Valencia | ELIEZER | [place] | | | | | [address] | | + + + + + Care Team Providers + +------+ + | Care Soldering Machine Tender Name | Role | Phone [...] | 2019 | | Center at [facility] [address] | MD [address] | | | | | [address] | [place], [place] | | | | | Mailcode: [place] | [address] | | | | | and | [phone] | | | | | [place] [address] | | | | | | [place], [place] | | | | | | [address] | | | | | | [phone] | | | +--------+ + + + [...]
--- OUTSIDE RECORDS SUMMARY | ~2020-04-13 | XMS | Encounter Summary ---
Demographics + + + | Address | [address] | | | [place] [address] | + + + | Home Phone [...] Team Providers + +------+ + | Care Baseball Inspector And Repairer Name | Role | Phone | [...] + + + + | 01/24/ | Emergency | [facility] | Michael Montoya MD | Chest pain, | | 2017 | | [facility] | [address] | unspecified type | | | | CENTER [address] | [place], [place] | (Primary Dx) | | | | [place], [place] | [address] | | | | | [address] | | | | | | [phone] | | | +--------+ + + + [...] + + + | Blood Pressure | 97/67 | 01/24/2017 1:43 PM | | | | | PST | | + + + + + | Pulse | 70 | 01/24/2017 1:43 PM | | | | | PST | | + + + + + | Temperature | 35.8 C (96.4 F) | 01/24/2017 12:20 PM | | | | | PST | | + + + + + | Respiratory Rate | 15 | 01/24/2017 1:43 PM | | | | | PST | | + + + + + | Oxygen Saturation | 89% | 01/24/2017 1:43 PM | | | | | PST | | + + + + + | Inhaled Oxygen | - | - | | | Concentration | | | | + + + + + | Weight | 113.4 kg (250 lb) | 01/24/2017 12:20 PM | | | | | PST | | + + + + + | Height | 193 cm (6' 4") | 01/24/2017 12:20 PM | | | | | PST | | + + + + + | Body Mass Index | 30.43 | 01/24/2017 12:20 PM | | | | | PST [...] documented as of this encounter Discharge Instructions Michael Gorman MD - 01/24/2017Continue medications as previously Slowly resume normal activities as tolerated Return for worsening symptoms, other new complaints documented in this encounter Medications at Time [...] + + + +---------+ + + | [place]-3 Fatty | CAPS, one capsule [...] [address] | | | | | | [address] [place], | | | | | | [place] [address] | | | | | | [phone] | | | | | | | | +--------+ + + + + | 05/01/ | Procedure | Cardiology | | | | 2019 | visit | | | | +--------+ + + + + | 05/01/ | Office | Cardiology | Silvia, | | | 2019 | Visit | | [address] | | | | | | [address] [place], | | | | | | [place] [address] | | | | | | [phone] | | | | | | | | +--------+ + + + + | 05/21/ | Implant | Cardiology | Daljit Singletary, | Remote Device | | 2019 | Monitor | | [address] [facility] | Interrogation | | | | | [address], | (Primary Dx); | | | | | [place] [address] | Pacemaker; | | | | | [phone] | Sinoatrial node | | | | | | dysfunction ([facility]) | | | | | [...] + + | COMPREHENSIVE | STAT | 01/24/2017 | | Results for this | | METABOLIC PANEL | | 1:03 PM | | procedure are in the | | | | PST | | results section. | + +--------+ + + + | XR CHEST AP PORTABLE | STAT | 01/24/2017 | | Results for this | | | | 12:35 PM | | procedure are in the | | | | PST | | results section. | + +--------+ + + + | ECG 12 LEAD | STAT | 01/24/2017 | | Results for this | | | | 12:27 PM | | procedure are in the | | | | PST | | results section. | + +--------+ + + + | CBC W/AUTO | STAT | 01/24/2017 | | Results for this | | DIFFERENTIAL | | 12:27 PM | | procedure are in the | | | | PST | | results section. | + +--------+ + + + | TROPONIN I | STAT | 01/24/2017 | | Results for this | | | | 12:27 PM | | procedure are in the | | | | PST | | results section. | + +--------+ + + + documented in this encounter Results Comprehensive Metabolic Panel (01/24/2017 1:03 PM PST) + + + + + + | Component | Value | Ref Range | Performed | Pathologist | | | | | At | Signature | + + + + + + | Na | 141 | 136 - 149 | [facility] | [...] + | Anion Gap | 10 | 3 - 16 mmol/L | [facility] | | | [facility] | [facility] | | | | | | CENTER - | | | | | | LABORATORY | | + + + + + + | Glucose | 107 | 70 - 109 mg/dL | [facility] [...] + + + + | Creatinine | 0.84 | 0.60 - 1.30 | [facility] | [...] [facility] | | | [place] | RATE,ESTIMATED | | MEDICAL | | | | mL/min/1.40h0Srua than | | CENTER - | | [...] + + | Calcium | 9.6 | 8.3 - 10.5 | [facility] | | | | | mg/dL | [facility] | | | | | | [facility] | | | | | | CENTER - | | | | | | LABORATORY | | + + + + + + | Albumin | 4.2 | 3.2 - 5.0 g/dL | [facility] | | | | | | [facility] | | | | | [facility] | | | | | | CENTER - | | | | | | LABORATORY | | + + + + + + | Bilirubin | 0.9Comment: This is an | 0.1 - 1.5 mg/dL | [facility] | | | Total | appended report. These | | [facility] | | | | results have been | | MEDICAL | | | | appended to a previously | | CENTER - | | | | preliminary verified | | LABORATORY | | | | report. | | | | + + + + + + | Total | 6.4 | 6.0 - 7.8 g/dL | [facility] | | | Protein | | | [facility] | | | | | | MEDICAL | | | | | | CENTER - | | | | | | LABORATORY | | + + + + + + | AST | 28Comment: This is an | 10 - 42 [...] + + + + | ALT | 24Comment: This is an | 6 - 45 [...] + + + + | Alkaline | 49Comment: This is an | 40 - 110 [...] + + + + | Globulin | 2.2 | 2.1 - 3.8 g/dL | [facility] | | | | | | [facility] | | | | | | MEDICAL | | | | | | CENTER - | | | | | | LABORATORY | | + + + + + + | Albumin/Sandee | 1.9 | 0.8 - 2.0 | [facility] | | | bulin Ratio | | | [facility] | | | | | | MEDICAL | | | | | | CENTER - | | | | | | LABORATORY | | + + + + + + | BUN/Creatin | 14.3 | | [facility] | | | ine [...] | [address] | [place], [place] | [phone] | | [facility] | | [address] | | | - LABORATORY | | | | + + + + + XR Chest AP Portable (01/24/2017 12:35 PM PST) + + | Specimen | + + | | + + + + + | Narrative | Performed At | + + + | PORTABLE CHEST X-RAY: 01/24/2017 12:28 PM CLINICAL HISTORY:CHEST | [facility] | | PAIN COMPARISON: 03/18/2015 FINDINGS:Stable dual-chamber | | | left-sided cardiac pacemaker. Heart size is normal. Aorta and | | | pulmonary vasculature are within normal limits. No mediastinal | | | widening. No areas of abnormal lung density. No effusion or | | | pneumothorax. Prior cervical fusion. No acute bony abnormalities. | | | No upper abdominal abnormalities. IMPRESSION -Stable pacemaker. | | | No acute cardiopulmonary abnormality. Dictated and Signed by: Francesco | | | MD Will Electronically signed: 01/24/2017 1:13 PM | | + + + + + | Procedure Note | + + | Kevin, Rad Results In - 01/24/2017 1:16 PM PST PORTABLE CHEST X-RAY: 01/24/2017 12:28 PM | | | | CLINICAL HISTORY:CHEST PAIN | | | | COMPARISON: 03/18/2015 | | | | FINDINGS:Stable dual-chamber left-sided cardiac pacemaker. | | | | Heart size is normal. Aorta and pulmonary vasculature are within normal limits. | | No mediastinal widening. | | | | No areas of abnormal lung density. No effusion or pneumothorax. | | | | Prior cervical fusion. No acute bony abnormalities. No upper abdominal | | abnormalities. | | | | IMPRESSION -Stable pacemaker. No acute cardiopulmonary abnormality. | | | | Dictated and Signed by: Francesco Solis MD | | Electronically signed: 01/24/2017 1:13 PM | + + + +---------+ + + | Performing | Address | City/State/Zipcode | Phone Number | | Organization | | | | + +---------+ + + | [facility] | | | | + +---------+ + + ECG 12 lead (01/24/2017 12:27 PM PST) + + + + + [...] + + + + | Q-T | 406 | ms | [facility] | | | INTERVAL | | | | | | (CORRECTED) | | | | | + + + + + + | P WAVE AXIS | 17 | degrees | [facility] | | + + + + + + | QRS AXIS | 25 | degrees | [facility] | | + + + + + + | T AXIS | 41 | degrees | [facility] | | + + + + + + | INTERPRETAT | Atrial-paced rhythm with | | [facility] | | | ION TEXT | prolonged AV | | | | | | conductionAbnormal | | | | | | ECGWhen compared with | | | | | | ECG of 23-JUN-2016 | | | | | | 13:12,No significant | | | | | | change was | | | | | | foundConfirmed by | | | | | | ANGELA MARADIAGA MD ([id number]) | | | | | | on 01/25/2017 6:45:26 AM | | | | + + [...] | + +---------+ + + Troponin I (01/24/2017 12:27 PM PST) + + + + + [...] | | | | | | [employer] | | | | | [...] [address] | [place] | [phone] | | [facility] | | [address] | | | - LABORATORY | | | | + + + + + CBC w/ Auto Differential (01/24/2017 12:27 PM PST) + +---------+ + + + | Component | Value | Ref Range | Performed | Pathologist | | | | | At | Signature | + +---------+ + + + | WBC | 7.2 | 4.0 - 11.0 K/uL | [facility] | | | | | | [facility] | | | | | | MEDICAL | | | | | | CENTER - | | | | | | LABORATORY | | + +---------+ + + + | RBC | 4.98 | 4.30 - 5.70 | [facility] | | | | | M/uL | [facility] | | | | | | MEDICAL | | | | | | CENTER - | | | | | | LABORATORY | | + +---------+ + + + | Hemoglobin | 16.2 | 13.5 - 18.0 | [facility] | [...] +---------+ + + + | MCV | 97.3 | 83.0 - 101.0 fL | [facility] | | | | | | [facility] | | | | | | MEDICAL | | | | | | CENTER - | | | | | | LABORATORY | | + +---------+ + + + | MCH | 32.6 | 28.0 - 35.0 pg | [facility] [...] + + | RDW-CV | 12.4 | <15.0 % | [facility] | | | | | | [facility] | | | | | | MEDICAL | | | | | | CENTER - | | | | | | LABORATORY | | + +---------+ + + + | Platelet | 139 (L) | 140 - 440 K/uL | [facility] | | | Count | | | [facility] | | | | | | MEDICAL | | | | | | CENTER - | | | | | | LABORATORY | | + +---------+ + + + | MPV | 9.6 | fL | [facility] | | | | | | [facility] | | | | | | MEDICAL | | | | | | CENTER - | | | | | | LABORATORY | | + +---------+ + + + | % | 62.0 | 45.0 - 82.0 % | [facility] | | | Neutrophils | | | [facility] | | | | | | MEDICAL | | | | | | CENTER - | | | | | | LABORATORY | | + +---------+ + + + | % | 27.6 | 20.0 - 45.0 % | [facility] [...] +---------+ + + + | % | 1.3 | 0.0 - 5.0 % | [facility] [...] +---------+ + + + | Absolute | 4.50 | 1.80 - 8.50 | [facility] | | | Neutrophils | | K/uL | [facility] | | | | | | MEDICAL | | | | | | CENTER - | | | | | | LABORATORY | | + +---------+ + + + | Absolute | 2.00 | 0.60 - 3.20 | [facility] | [...] +---------+ + + + | Absolute | 0.00 | 0.00 - 0.10 | [facility] | [...] + | [facility] | [address] | [place] | [phone] | | [facility] | | [address] | | | - LABORATORY | | [...] | | | + +--------+ +--------+------+------+ | nitroglycerin (NITROSTAT) SL | Given | 01/25/20 | 0.4 mg | | | | tablet 0.4 mg 0.4 mg, | | 17 1:33 | | | | | Sublingual, EVERY 5 MIN PRN, | | PM PST | | | | | Chest pain, Starting 01/24/17 | | | | | | | at 1227, Maximum of 3 doses in 15 | | | | | | | minutes., | | | | | | + +--------+ +--------+------+------+ +---+---+ | | | +---+---+ documented in this encounter
--- OUTSIDE RECORDS SUMMARY | ~2020-04-13 | XMS | Encounter Summary ---
Demographics + + + | Address | [address] | | | [place] [address] | + + + | Home Phone [...] Providers + +------+ + | Care Supervisor Sterile Processing Name | Role | Phone | + +------+ + | Kirk French MD | PCP | | + +------+ + Reason for Visit + + + | Reason | Comments | + + + | Diarrhea (Adult) | stomach cramps and liquid stool | + + + Encounter Details +--------+ + + + + | Date | Type | Department | Care Team | Description | +--------+ + + + + | 03/29/ | Telephone | [facility] | Emmanuel Daniel MD | Diarrhea (Adult) | | 2019 | | GASTROENTEROLOGY | [address], [place] | (stomach cramps and | | | | [address] [place] | [address] [place], [place] | liquid stool) | | | | [address] [place], [place] | [address] | | | | | [address] | | | | | | [phone] | | | +--------+ + + + [...] | | | | | | [place] [address] | | | | | | [phone] | | | | | | | | +--------+ + + + + | 05/01/ | Procedure | Cardiology | | | | 2019 | visit | | | | +--------+ + + + + | 05/01/ | Office | Cardiology | Silvia, | | | 2019 | Visit | | [address] | | | | | | [place], | | | | | | [place] [address] | | | | | | [phone] | | | | | | | | +--------+ + + + + | 05/21/ | Implant | Cardiology | Daljit Singletary, | Remote Device | | 2019 | Monitor | | [address] | Interrogation | | | | | [place], | (Primary Dx); | | | | | [place] [address] | Pacemaker; | | | | | [phone] | Sinoatrial node | | | | [...]
--- OUTSIDE RECORDS SUMMARY | ~2020-04-13 | XMS | Encounter Summary ---
Demographics + + + | Address | [address] | | | [place] [address] | + + + | Home Phone [...] Team Providers + +------+ + | Care Advertising Columnist Name | Role | Phone | + [...] + + | 09/05/ | Office | [facility] | Geri Angel, | SINUS BRADYCARDIA | | 2012 | Visit | CARDIOLOGY [address] | FLAKE OR SHRED ROLL OPERATOR [address] | (Primary Dx); | | | | [facility] [place], | [place], [place] | Symptomatic PVCs; | | | | [place] [address] | [address] | Hypertension; | | | | [phone] | | Hyperlipidemia | +--------+---------+ + + [...] and/or ref er you to electrophysiology in [place]. 3. Return in 3 months, or sooner [...] he did not followup with electrophysiology in [place], so he has remained on diltiaze m [...] Family Status Relation Status Age Mother 62 [place] Father Alive Unknown health Brother Alive Sister [...] by mouth Ken y. 30 tablet 6 [place]-3 Fatty Acids (SALMON OIL-1000 PO) Active CAPS, [...] Sanchez Date: September 05, 2013 : 1960 Non Ferrous Material Handler: PARISA Velazquez Device Track Maintainer: Exposed Vocals Sense (mV) Impedance (?) Capture (V) Capture (ms) A Lead 4-5.6 417 1.5 0.12 RV Lead >31.36 533 2.0 0.09 LV Lead Battery Impedance (?): 452 Battery Voltage (V): 2.79 [place] Interval (ms): 162 AR Interval (ms): 245 VA Conduction: Mode Switch Events: 1 % of time: <0.1 -ELECTRONIC PUBLICATIONS SPECIALIST: <0.1% AP-ELECTRONIC PUBLICATIONS SPECIALIST: 0.1% -VS: 22.7% AP-VS: 77.1% ELECTRONIC PUBLICATIONS SPECIALIST: Magnetic Rate: 85 LINDA: 65 LEAH: [...] to go back in 3 days to [place] for an attempt of ablation under general [...] He is upgraded to class I of [place] [employer] functional class. There are no [...] he would like to see electrophysiology in [place] rather than [place] as he paulino s family there, if [...] made to ensure accuracy; however, inadvertent computerized podiatric foot and ankle specialist errors may be pre sent. Electronically [...] | | | | | | [place] [address] | | | | | | [phone] | | | | | | | | +--------+ + + + + | 05/01/ | Procedure | Cardiology | | | 2019 | visit | | | | +--------+ + + + + | 05/01/ | Office | Cardiology | Silvia, | | | 2019 | Visit | | PARISA [address] | | | | | | [facility] [place], | | | | | | [place] [address] | | | | | | [phone] | | | | | | | | +--------+ + + + + | 05/21/ | Implant | Cardiology | Daljit Singletary, | Remote Device | | 2019 | Monitor | | [address] | Interrogation | | | | | [place], | (Primary Dx); | | | | | [place] [address] | Pacemaker; | | | | | [phone] | Sinoatrial node | | | | [...]
--- OUTSIDE RECORDS SUMMARY | ~2020-04-13 | XMS | Encounter Summary ---
Demographics + + + | Address | [address] | | | [place] [address] | + + + | Home Phone [...] Providers + +------+ + | Care Community Health Nurse Staff Name | Role | Phone | + +------+ + | Kirk French MD | PCP | | + +------+ + Encounter Details +--------+---------+ + + + | Date | Type | Department | Care Team | Description | +--------+---------+ + + + | 12/24/ | Surgery | [facility] | Emmanuel Daniel MD | EGD | | 2018 | | MED CTR MP INTRA OP | [address], [place] | | | | | [address] | [address] [place], [place] | | | | | [place], [place] | [address] | | | | | [address] | | | | | | [phone] | | | +--------+---------+ + + + [...] + + + +---------+ + + | Le[place]-3 Fatty | CAPS, one capsule by | [...] [address] | | | | | | [address] [place], | | | | | | [place] [address] | | | | | | [phone] | | | | | | | | +--------+ + + + + | 05/01/ | Procedure | Cardiology | | | | 2019 | visit | | | | +--------+ + + + + | 05/01/ | Office | Cardiology | Silvia, | | | 2019 | Visit | | [address] | | | | | | [address] [place], | | | | | | [place] [address] | | | | | | [phone] | | | | | | | | +--------+ + + + + | 05/21/ | Implant | Cardiology | Daljit Singletary, | Remote Device | | 2019 | Monitor | | [address] | Interrogation | | | | | [place], | (Primary Dx); | | | | | [place] [address] | Pacemaker; | | | | | [phone] | Sinoatrial node | | | | [...] + + | Performed at: 01 - [facility] [address], | REFERENCE LAB | | [place], [place] [id number] Bilingual Speech Therapist: William Andrew MD, Phone: | [facility] | | [phone] | | + + + + + + + + | Performing | Address | City/State/Zipcode | Phone Number | | Organization | | | | + + + + + | REFERENCE LAB | [address] | [place], [place] | [phone] | | [facility] | [place] | [address] | | + + + + + Campylobacter Ag,Qual (12/24/2017 1:34 PM PST) + + + + + + | Component | Value | Ref Range | Performed | Pathologist | | | | | At | Signature | + + + + + + | Campylobact | Negative | Negative | [facility] | | | er AG Qual | | | [facility] [...] [address] | [place] | [phone] | | [facility] | | [address] | | | - LABORATORY | | [...] ST. | [address] | [place] | [phone] | | [facility] | | [address] | | | - LABORATORY | | [...] + | [address] | [address] | [place] | [phone] | | [facility] | | [address] | | | - LABORATORY | | [...] + + | Performed at: 01 - [facility] [address], | REFERENCE LAB | | [place], [place] [id number] Bilingual Speech Therapist: William Andrew MD, Phone: | [facility] | | [phone] | | + + + + + + + + | Performing | Address | City/State/Zipcode | Phone Number | | Organization | | | | + + + + + | REFERENCE LAB | [address] | [place], [place] | [phone] | | [facility] | Drive [facility] | [address] | | + + + + + [...] [address] | [place] | [phone] | | [facility] | | [address] | | | - LABORATORY | | [...] [address] | [place] | [phone] | | [facility] | | [address] | | | - LABORATORY | | [...] | [address] | [place] | [phone] | | [facility] | | [address] | | | - LABORATORY | | [...] [address] | [place] | [phone] | | [facility] | | [address] | | | - LABORATORY | | [...] + | [facility] | [address] | [place] | [phone] | | [facility] | | [address] | | | - LABORATORY | | | | + + + + + EGD (12/24/2017 1:19 PM PST) + + | Specimen | + + | | + + + + -+ | Narrative | Performed At | + + -+ | | [facility] | | GastroenterologyPatient Name: Moe SanchezProcedure Date: 12/24/2017 | [facility] | | 1:19 PMMRN: [id number] #: [id number] of : | | | 1960dmit Type: AmbulatoryAge: 57[facility]Gender: MaleNote | | | Status: FinalizedAttending MD: Emmanuel Daniel , MDProcedure: | | | Upper GI endoscopyIndications: Diarrhea, Weight | | | lossProviders: Emmnauel Daniel MD, Maria Isabel Morris RN, | | | Kim Hicks, Crane Follower, Jarett | | | Sapna Barakat MD [...] the anesthesiologist and | | | the quality technician in the endoscopy suite. Mental Status [...] PMScope Out: 1:31:13 PM | | | [facility], [address] [place] [address] | | | [place] [address] | | | - Discharge patient to [...] |Scope Out: 1:31:13 PM | | | [facility], [address] [place] [address] | | | [address] | | + + -+ + +---------+ [...] 12/24/2017 | [facility] | | 1:17 PMMRN: [id number] #: [id number] of : | | | 9Admit Type: AmbulatoryAge: 57Room: [facility] 01Gender: MaleNote | | | Status: FinalizedAttending MD: Emmanuel Daniel [facility]: | | | ColonoscopyIndications: Clinically significant diarrhea of | | | unexplained originProviders: Emmanuel Daniel MD, Maria Isabel | | | Arturo, RN, Kim Hicks, Crane Follower, | | | Jarett Barakat MD (Anesthesia [...] | | | the anesthesiologist and the quality technician in the endoscopy suite. | | [...] Scope In: 1:32:55 PMScope Out: 1:48:57 PM [facility] | | | [facility], [address] [place] [address] | | | [phone] | | | - Await pathology results. [...] |Scope Out: 1:48:57 PM | | | [facility], [facility] [address], [place] | | | [address] | | + + -+ + +---------+ [...] | colonic mucosa with focal adenomatous change. CLR:[facility]:C2NR | | | GROSS DESCRIPTION: Received in four parts. A. Received in | | | formalin labeled "Moeuriel Sanchez, A." and labeled "duodenal bx" on | | | the requisition are six pink-lin tissue fragments measuring from | | | 0.3-0.8 cm submitted, all in (A1). B. Received in formalin labeled | | | "Moeuriel Sanchez, C." and labeled "B, left colon bx" [...] in formalin labeled "Moe | | | [facility]" and labeled "D. ascending colon bx" on the | | | requisition are nine pink-lin tissue fragments measuring from 0.15-0.5 | | | cm, submitted, all in (D1). ka:CLR:[facility] ADDITIONAL NOTES: | | | Immunohistochemical studies were performed on this case with the | | | appropriate positive controls that react as expected. This test was | | | developed and its performance characteristics determined by [facility] | | | [facility]. It has not been cleared or approved by the U.S. Food | | | and Drug Administration. The FDA has determined that such clearance | | | or approval is not necessary. This test is used for clinical | | | purposes. It should not be regarded as investigational or for | | | research. [facility] is certified under the Clinical | | | Laboratory Improvement Amendments of 1988 (CLIA) as qualified to | | | perform high complexity clinical laboratory testing. This assay | | | has not been validated for specimens that have been decalcified. | | | PERFORMING LABORATORY: Tissue processing and slide preparation were | | | performed by [facility], [address], [facility] | | | [place] [address] (Striker Out: Evan Frausto M.D. CLIA#: | | | [id number]). Professional interpretation was performed by [facility] | | | [facility], [address], [place] [address] | | | (Striker Out: Evan Frausto M.D.; CLIA#: [id number]). | | | Diagnostician: Rafael Bales MD Pathologist Electronically | | | Signed 12/28/2017 | | + + + + +---------+ + + | Performing | Address | City/State/[facility] Cent[facility] | Phone Number | | [...] PRN, Nausea, Vomiting, Starting | | | Wed12/24/17 at 1359, | | | Recovery/Phase I [...]
--- OUTSIDE RECORDS SUMMARY | ~2020-04-13 | XMS | Encounter Summary ---
Demographics + + + | Address | [address] | | | [place] [address] | + + + | Home Phone [...] Providers + +------+ + | Care Elevator Starter Name | Role | Phone | + [...] | | CARDIOLOGY [address] | Janeen STEAM STATION SUPERVISOR [address] | | | | | [place], | [place], | | | | | [place] [address] | [place] [address] | | | | | [phone] | [phone] | | | | | | | [...] W | | | | | | [place], | | | | | | [place] [address] | | | | | | [phone] | | | | | | | | +--------+ + + + + | 05/01/ | Procedure | Cardiology | | | | 2019 | visit | | | | +--------+ + + + + | 05/01/ | Office | Cardiology | Silvia, | | | 2019 | Visit | | [address] | | | | | | [place], | | | | | | [place] [address] | | | | | | [phone] | | | | | | | | +--------+ + + + + | 05/21/ | Implant | Cardiology | Daljit Singletary, | Remote Device | 2019 | Monitor | | [address] | Interrogation | | | | | [address] [place], | (Primary Dx); | | | | | [place] [address] | Pacemaker; | | | | | [phone] | Sinoatrial node | | | | | | dysfunction (HCC) | | | | | | with symptomatic | | | | | | bradycardia | +--------+ + + + + documented as of this encounter Visit Diagnoses Not on filedocumented in this encounter"
--- OUTSIDE RECORDS SUMMARY | ~2020-04-13 | XMS | Encounter Summary ---
Demographics + + + | Address | [address] | | | [place] [address] | + + + | Home Phone [...] Team Providers + +------+ + | Care School Supervisor Name | Role | Phone | + +------+ + PCP | Unavailable | + +------+ + Encounter Details +--------+ + + + + | Date | Type | Department | Care Team | Description | +--------+ + + + + | 08/02/ | Hospital | [facility] | | | | 2001 | Encounter | MED CTR EMERGENCY | | | | | | [place] [address] | | | | | | [place] | | | | | | [address] | | | | | | [phone] | | | +--------+ + + + [...] | | | | | | [place] [address] | | | | | | [phone] | | | | | | | | +--------+ + + + + | 05/01/ | Procedure | Cardiology | | | | 2019 | visit | | | | +--------+ + + + + | 05/01/ | Office | Cardiology | Sil[place], | | | 2019 | Visit | | [address] | | | | | | [place], | | | | | | [place] [address] | | | | | | [phone] | | | | | | | | +--------+ + + + + | 05/21/ | Implant | Cardiology | Daljit Singletary, | Remote Device | 2019 | Monitor | | [address] | Interrogation | | | | | [place], | (Primary Dx); | | | | | [place] [address] | Pacemaker; | | | | | [phone] | Sinoatrial node | | | | | | dysfunction (HCC) | | | | | | with symptomatic | | | | | | bradycardia | +--------+ + + + + documented as of this encounter Visit Diagnoses Not on filedocumented in this encounter"
--- OUTSIDE RECORDS SUMMARY | ~2020-04-13 | XMS | Encounter Summary ---
Demographics + + + | Address | [address] | | | [place] [address] | + + + | Home Phone [...] Team Providers + +------+ + | Care Paint Technician Name | Role | Phone | + +------+ + | Kirk French MD | PCP | | + +------+ + Reason for Visit +---------+ + | Reason | Comments | +---------+ + | Results | [facility] | +---------+ + Encounter Details +--------+ + + + + | Date | Type | Department | Care Team | Description | +--------+ + + + + | 03/07/ | Telephone | [facility] [place] | Daljit Singletary, | Results ([facility]) | | 2020 | | CARDIOLOGY [address] | MD [address] [place] | | | | | [place], | [place], | | | | | [place] [address] | [place] [address] | | | | | [phone] | [phone] | | | | | | | [...] | | | | | | [place] [address] | | | | | | [phone] | | | | | | | | +--------+ + + + + | 05/01/ | Procedure | Cardiology | | | | 2019 | visit | | | | +--------+ + + + + | 05/01/ | Office | Cardiology | [place], | | | 2019 | Visit | | [address] [address] | | | | | | [place], | | | | | | [place] [address] | | | | | | [phone] | | | | | | | | +--------+ + + + + | 05/21/ | Implant | Cardiology | Daljit Singletary, | Remote Device | 2019 | Monitor | | [address] | Interrogation | | | | | [place], | (Primary Dx); | | | | | [place] [address] | Pacemaker; | | | | | [phone] | Sinoatrial node | | | | | | dysfunction (HCC) | | | | | | with symptomatic | | | | | | bradycardia | +--------+ + + + + documented as of this encounter Visit Diagnoses Not on filedocumented in this encounter"
--- OUTSIDE RECORDS SUMMARY | ~2020-04-13 | XMS | Encounter Summary ---
Demographics + + + | Address | [address] | | | [place] [address] | + + + | Home Phone [...] Team Providers + +------+ + | Care Geothermal Technician Name | Role | Phone | [...] | | [address] [place] | [place] [address] | | | | | [place] [address] | | | | | | [phone] | | | +--------+ + + + [...] W | | | | | | [place], | | | | | | [place] [address] | | | | | | [phone] | | | | | | | | +--------+ + + + + | 05/01/ | Procedure | Cardiology | | | | 2019 | visit | | | | +--------+ + + + + | 05/01/ | Office | Cardiology | Silvia, | | | 2019 | Visit | | [address] | | | | | | [place], | | | | | | [place] [address] | | | | | | [phone] | | | | | | | | +--------+ + + + + | 05/21/ | Implant | Cardiology | Daljit Singletary, | Remote Device | | 2019 | Monitor | | MD [facility] | Interrogation | | | | | [place], | (Primary Dx); | | | | | [place] [address] | Pacemaker; | | | | | [phone] | Sinoatrial node | | | | [...]
--- OUTSIDE RECORDS SUMMARY | ~2020-04-13 | XMS | Encounter Summary ---
Demographics + + + | Address | [address] | | | [place] [address] | + + + | Home Phone [...] Providers + +------+ + | Care Hand Booked Folder And Stitcher Name | Role | Phone | [...] type ER | [address] | [address] | | | | | FUP | [place] | [place], | | | | | Procedures | [place], [place] | [place] [address] | | | | | FUP - SUW & | [address] | Phone: | | | | | EVM PT, LAST | Phone: | [phone] | | | | | SEEN | [phone] | Fax: | | | | | 08-24-18 | Fax: | [phone] | | | | | | [phone] | | +--------+ + + + + [...] | | | | CENTER [address] | [address] [place] | (Primary Dx) | | | | [place], [place] | [place] [address] | | | | | [address] | [phone] | | | | | [phone] | | | +--------+ + + + [...] through Care Everywhere.Chest Pain, Unc ertain Cause (Latvian)documented in this encounter Medications at Time [...] + + + +---------+ + + | [place]-3 Fatty | CAPS, one capsule by | [...] | | | | | | [place] [address] | | | | | | [phone] | | | | | | | | +--------+ + + + + | 05/01/ | Procedure | Cardiology | | | | 2019 | visit | | | | +--------+ + + + + | 05/01/ | Office | Cardiology | [place]via, | | | 2019 | Visit | | PAR[place] [address] | | | | | | [place], | | | | | | [place] [address] | | | | | | [phone] | | | | | | | | +--------+ + + + + | 05/21/ | Implant | Cardiology | Daljit Singletary, | Remote Device | 2019 | Monitor | | [address] | Interrogation | | | | | [place], | (Primary Dx); | | | | | [place] [address] | Pacemaker; | | | | | [phone] | Sinoatrial node | | | | [...] | | | | ANGELA MARADIAGA MD ([id number]) | | | | | | on [...] + + + + + | YESSY HOBBS | [address] | [place] | [phone] | | [facility] | | [address] | | | - LABORATORY | | [...] | | | Screen, | | | [facility] | | | Urine | | | MEDICAL | | | | | | CENTER - | | | | | | LABORATORY | | + + + + + + | Barbiturate | Negative | Negative | [facility] | | | s Screen, | | | [facility] | | | Urine | | [...] [address] | [place] | [phone] | | [facility] | | [address] | | | - LABORATORY | | [...] Urine | | Yellow, Straw | [facility] [...] - 1.030 | [facility] | | | [place], | | | [facility] | | [...] | | Cells, | | | [facility] | | | Urine | | | MEDICAL | | | | | | CENTER - | | | | | | LABORATORY | | + + + + + + | Red Blood | 0-2 | 0 - 2 /HPF | [facility] | | | Cells, | | | [facility] | | | Urine | | | MEDICAL | | | | | | CENTER - | | | | | | LABORATORY | | + + + + + + | Squamous | 0-2 | 0 - 2 /LPF | [facility] | | | Epithelial | | | [facility] | | | Cells, | | | [...] | Comment | Indicated | | [facility] | [...] [address] | [place] | [phone] | | [facility] | | [address] | | | - [...] 2.0 | 1.8 - 2.5 mg/dL | YESSY [...] [address] | [place] | [phone] | | [facility] | | [address] | | | - LABORATORY | | | | + + + + + B Type Natriuretic Peptide (01/02/2019 6:17 PM PST) + +-------+ + + + | Component | Value | Ref Range | Performed | Pathologist | | | | | At | Signature | + +-------+ + + + | BNP | 15 | <100 pg/mL | [facility] | | [...] [address] | [place] | [phone] | | [facility] | | [address] | | | - LABORATORY | | [...] [address] | [place] | [phone] | | [facility] | | [address] | | | - LABORATORY | | [...] 13 | 7 - 18 mg/dL | [facility] | | | | | | [facility] | | | | | | MEDICAL | | | | | | CENTER - | | | | | | LABORATORY | | + + + + + + | Creatinine | 0.96 | 0.60 - 1.30 | [facility] | | | | | mg/dL | [facility] | | | | | | MEDICAL | | | | | | CENTER - | | | | | | LABORATORY | | + + + + + + | eGFR if not | >60Comment: GLOMERULAR | >=60 | [facility] | | | | FILTRATION | mL/min/1.73m2 | [facility] | | | [place]OREAN | RATE,ESTIMATED | | MEDICAL | | | | mL/min/1.69n8Xiae than | | CENTER - | | [...] [address] | [place] | [phone] | | [facility] | | [address] | | | - LABORATORY | | [...] | | | | WBC's | [facility] | | | | [...] + | [address] | [address] | [place] | [phone] | | [facility] | | [address] | | | - LABORATORY | | [...] | | | | HIREN WINKLER, ANGELA ([id number]) | | | | | | on [...]
--- OUTSIDE RECORDS SUMMARY | ~2020-04-13 | XMS | Encounter Summary ---
Demographics + + + | Address | [address] | | | [place] [address] | + + + | Home Phone [...] Team Providers + +------+ + | Care Chain Maker Loom Control Name | Role | Phone | + [...] + | 02/16/ | Telephone | [facility] | [place], | Other (concerned | | 2012 | | CARDIOLOGY [address] | [address] [address] | about palpitations) | | | | [place], | [place], | | | | | [place] [address] | [place] [address] | | | | | [phone] | [phone] | | | | | | | [...] W | | | | | | [place], | | | | | | [place] [address] | | | | | | [phone] | | | | | | | | +--------+ + + + + | 05/01/ | Procedure | Cardiology | | | | 2019 | visit | | | | +--------+ + + + + | 05/01/ | Office | Cardiology | [place]via, | | | 2019 | Visit | | PARISA [address] | | | | | | [place], | | | | | | [place] [address] | | | | | | [phone] | | | | | | | | +--------+ + + + + | 05/21/ | Implant | Cardiology | Daljit Singletary, | Remote Device | | 2019 | Monitor | | [facility] | Interrogation | | | | | [place], | (Primary Dx); | | | | | [place] [address] | Pacemaker; | | | | | [phone] | Sinoatrial node | | | | | | dysfunction (HCC) | | | | | | with symptomatic | | | | | | bradycardia | +--------+ + + + + documented as of this encounter Visit Diagnoses Not on filedocumented in this encounter"
--- OUTSIDE RECORDS SUMMARY | ~2020-04-13 | XMS | Encounter Summary ---
Demographics + + + | Address | [address] | | | [place] [address] | + + + | Home Phone [...] Team Providers + +------+ + | Care Spinner Box Name | Role | Phone | + +------+ + | Kirk French MD | PCP | | + +------+ + Encounter Details +--------+ + + + + | Date | Type | Department | Care Team | Description | +--------+ + + + + | 10/25/ | Hospital | [facility] | Kirk French | Chronic pain | | 2017 | Encounter | MED CTR ULTRASOUND | MD Brea Eva LORA | disorder; Stomach | | | | [address] [place] | [address] | ache; Obesity, | | | | [place], [place] | [place] [address] | unspecified | | | | [address] | [phone] | classification, | | | | [phone] | | unspecified obesity | | | [...] + + + +---------+ + + | [place]-3 Fatty | CAPS, one capsule by | [...] | | | | | | [place] [address] | | | | | | [phone] | | | | | | | | +--------+ + + + + | 05/01/ | Procedure | Cardiology | | | | 2019 | visit | | | | +--------+ + + + + | 05/01/ | Office | Cardiology | [place]via, | | | 2019 | Visit | | [address] | | | | | | [place], | | | | | | [place] [address] | | | | | | [phone] | | | | | | | | +--------+ + + + + | 05/21/ | Implant | Cardiology | Daljit Singletary, | Remote Device | | 2019 | Monitor | | MD [facility] | Interrogation | | | | | [place], | (Primary Dx); | | | | | [place] [address] | Pacemaker; | | | | | [phone] | Sinoatrial node | | | | [...]
--- OUTSIDE RECORDS SUMMARY | ~2020-04-13 | XMS | Encounter Summary ---
Demographics + + + | Address | [address] | | | [place] [address] | + + + | Home Phone [...] Team Providers + +------+ + | Care Board Setter Name | Role | Phone | [...] + | 07/01/ | Telephone | [facility] | Daljit Singletary, | Other (EKG) | | 2017 | | CARDIOLOGY [address] | MD [address] [place] | | | | | [place], | [place], | | | | | [place] [address] | [place] [address] | | | | | [phone] | [phone] | | | | | | | [...] | | | | | | [place] [address] | | | | | | [phone] | | | | | | | | +--------+ + + + + | 05/01/ | Procedure | Cardiology | | | | 2019 | visit | | | | +--------+ + + + + | 05/01/ | Office | Cardiology | [place]via, | | | 2019 | Visit | | PARISA [address] | | | | | | [place], | | | | | | [place] [address] | | | | | | [phone] | | | | | | | | +--------+ + + + + | 05/21/ | Implant | Cardiology | Daljit Singletary, | Remote Device | | 2019 | Monitor | | [address] [facility] | Interrogation | | | | | [place], | (Primary Dx); | | | | | [place] [address] | Pacemaker; | | | | | [phone] | Sinoatrial node | | | | | | dysfunction (HCC) | | | | | | with symptomatic | | | | | | bradycardia | +--------+ + + + + documented as of this encounter Visit Diagnoses Not on filedocumented in this encounter"
--- OUTSIDE RECORDS SUMMARY | ~2020-04-13 | XMS | Encounter Summary ---
Demographics + + + | Address | [address] | | | [place] [address] | + + + | Home Phone [...] Team Providers + +------+ + | Care Basket Bottom Machine Operator Name | Role | Phone [...] | 03/07/ | Telephone | [facility] [place] | Daljit Singletary, | Results ([facility]) | | 2020 | | CARDIOLOGY [address] | MD [address] [place] | | | | | [place], | [place], | | | | | [place] [address] | [place] [address] | | | | | [phone] | [phone] | | | | | | | [...] | | | | | | [place] [address] | | | | | | [phone] | | | | | | | | +--------+ + + + + | 05/01/ | Procedure | Cardiology | | | | 2019 | visit | | | | +--------+ + + + + | 05/01/ | Office | Cardiology | [place]via, | | | 2019 | Visit | | PARISA Vernon [address] | | | | | | [place], | | | | | | [place] [address] | | | | | | [phone] | | | | | | | | +--------+ + + + + | 05/21/ | Implant | Cardiology | Daljit Singletary, | Remote Device | 2019 | Monitor | | [address] | Interrogation | | | | | [place], | (Primary Dx); | | | | | [place] [address] | Pacemaker; | | | | | [phone] | Sinoatrial node | | | | | | dysfunction (HCC) | | | | | | with symptomatic | | | | | | bradycardia | +--------+ + + + + documented as of this encounter Visit Diagnoses Not on filedocumented in this encounter"
--- OUTSIDE RECORDS SUMMARY | ~2020-04-13 | XMS | Encounter Summary ---
Demographics + + + | Address | [address] | | | [place] [address] | + + + | Home Phone [...] Team Providers + +------+ + | Care Silver Recovery Operator Name | Role | Phone | + +------+ + | Kirk French MD | PCP | | + +------+ + Encounter Details +--------+ + + + + | Date | Type | Department | Care Team | Description | +--------+ + + + + | 01/18/ | Hospital | [facility] | Conversion | Diagnosis unknown | | 2017 | Encounter | CONVERSION DEP [address] | Transaction, | | | | | [address] | Provider Unknown | | | | | [place], [place] | [phone] | | | | | [address] | | | | | | [phone] | | | +--------+ + + + [...] + + + +---------+ + + | [place]-3 Fatty | CAPS, one capsule by | [...] | | | | | | [place] [address] | | | | | | [phone] | | | | | | | | +--------+ + + + + | 05/01/ | Procedure | Cardiology | | | | 2019 | visit | | | | +--------+ + + + + | 05/01/ | Office | Cardiology | [place], | | | 2019 | Visit | | [address] | | | | | | [place], | | | | | | [place] [address] | | | | | | [phone] | | | | | | | | +--------+ + + + + | 05/21/ | Implant | Cardiology | Daljit Singletary, | Remote Device | | 2019 | Monitor | | MD [facility] | Interrogation | | | | | [place], | (Primary Dx); | | | | | [place] [address] | Pacemaker; | | | | | [phone] | Sinoatrial node | | | | | | dysfunction ([facility]) | | | | | | [...]
--- OUTSIDE RECORDS SUMMARY | ~2020-04-13 | XMS | Encounter Summary ---
Demographics + + + | Address | [address] | | | [place] [address] | + + + | Home Phone [...] Providers + +------+ + | Care Web Applications Programmer Name | Role | Phone | [...] | | CARDIOLOGY [address] | Janeen, PRESS OPERATOR AUTOMATIC [address] | Clearance) | | | | [place], | [place], | | | | | [place] [address] | [place] [address] | | | | | [phone] | [phone] | | | | | | | [...] | | | | | | [place] [address] | | | | | | [phone] | | | | | | | | +--------+ + + + + | 05/01/ | Procedure | Cardiology | | | | 2019 | visit | | | | +--------+ + + + + | 05/01/ | Office | Cardiology | [place], | | | 2019 | Visit | | PARISA Vernon [address] | | | | | | [place], | | | | | | [place] [address] | | | | | | [phone] | | | | | | | | +--------+ + + + + | 05/21/ | Implant | Cardiology | Daljit Singletary, | Remote Device | 2019 | Monitor | | [address] [facility] | Interrogation | | | | | [place], | (Primary Dx); | | | | | [place] [address] | Pacemaker; | | | | | [phone] | Sinoatrial node | | | | | | dysfunction (HCC) | | | | | | with symptomatic | | | | | | bradycardia | +--------+ + + + + documented as of this encounter Visit Diagnoses Not on filedocumented in this encounter"
--- OUTSIDE RECORDS SUMMARY | ~2020-04-13 | XMS | Encounter Summary ---
Demographics + + + | Address | [address] | | | [place] [address] | + + + | Home Phone [...] Providers + +------+ + | Care Delivery Stock Clerk Name | Role | Phone | [...] | | [address] [place] | [place] [address] | | | | | [place] [address] | | | | | | [phone] | | | +--------+ + + + [...] W | | | | | | [place], | | | | | | [place] [address] | | | | | | [phone] | | | | | | | | +--------+ + + + + | 05/01/ | Procedure | Cardiology | | | | 2019 | visit | | | | +--------+ + + + + | 05/01/ | Office | Cardiology | [place]via, | | | 2019 | Visit | | [address] [address] | | | | | | [place], | | | | | | [place] [address] | | | | | | [phone] | | | | | | | | +--------+ + + + + | 05/21/ | Implant | Cardiology | Daljit Singletary, | Remote Device | | 2019 | Monitor | | MD [address] [facility] | Interrogation | | | | | [place], | (Primary Dx); | | | | | [place] [address] | Pacemaker; | | | | | [phone] | Sinoatrial node | | | | [...]
--- OUTSIDE RECORDS SUMMARY | ~2020-04-13 | XMS | Encounter Summary ---
Demographics + + + | Address | [address] | | | [place] [address] | + + + | Home Phone [...] Team Providers + +------+ + | Care Topographical Drafter Name | Role | Phone | + +------+ + PCP | Unavailable | + +------+ + Encounter Details +--------+ + + + + | Date | Type | Department | Care Team | Description | +--------+ + + + + | 01/15/ | [facility] | [facility] | Emmanuel Daniel MD | | | 1994 | Encounter | MED CTR GENERIC OP | [address] | | | | | CONV DEPT [address] | [address] [place] [address] | | | | | [place], | [address] | | | | | [place] [address] | | | | | | [phone] | | | +--------+ + + + [...] W | | | | | | [place], | | | | | | [place] [address] | | | | | | [phone] | | | | | | | | +--------+ + + + + | 05/01/ | Procedure | Cardiology | | | | 2019 | visit | | | | +--------+ + + + + | 05/01/ | Office | Cardiology | [place], | | | 2019 | Visit | | PARISA Vernon W | | | | | | [place], | | | | | | [place] [address] | | | | | | [phone] | | | | | | | | +--------+ + + + + | 05/21/ | Implant | Cardiology | Daljit Singletary, | Remote Device | 2019 | Monitor | | [address] [place] | Interrogation | | | | | [place], | (Primary Dx); | | | | | [place] [address] | Pacemaker; | | | | | [phone] | Sinoatrial node | | | | | | dysfunction (HCC) | | | | | | with symptomatic | | | | | | bradycardia | +--------+ + + + + documented as of this encounter Visit Diagnoses Not on filedocumented in this encounter"
--- OUTSIDE RECORDS SUMMARY | ~2020-04-13 | XMS | Encounter Summary ---
Demographics + + + | Address | [address] | | | [place] [address] | + + + | Home Phone [...] Team Providers + +------+ + | Care Clean Rice Broker Name | Role | Phone | + +------+ + | Kirk French MD | PCP | | + +------+ + Encounter Details +--------+ + + + + | Date | Type | Department | Care Team | Description | +--------+ + + + + | 12/24/ | Orders Only | [facility] | Conversion | | | 2018 | | [facility] | Transaction, | | | | | PRIMARY CARE [address] | Provider Unknown | | | | | [address] | [phone] | | | | | [place] | | | | | | [address] | | | | | | [phone] | | | +--------+ + + + [...] W | | | | | | [place], | | | | | | [place] [address] | | | | | | [phone] | | | | | | | | +--------+ + + + + | 05/01/ | Procedure | Cardiology | | | | 2019 | visit | | | | +--------+ + + + + | 05/01/ | Office | Cardiology | [place], | | | 2019 | Visit | | PARISA [place] W | | | | | | [place], | | | | | | [place] [address] | | | | | | [phone] | | | | | | | | +--------+ + + + + | 05/21/ | Implant | Cardiology | Daljit Singletary, | Remote Device | | 2020 | Monitor | | [facility] | Interrogation | | | | | [place], | (Primary Dx); | | | | | [place] [address] | Pacemaker; | | | | | [phone] | Sinoatrial node | | | | [...] This external order was created through the [employer] Console. | EXTERNAL LAB | | Historically [...]
--- OUTSIDE RECORDS SUMMARY | ~2020-04-13 | XMS | Encounter Summary ---
Demographics + + + | Address | [address] | | | [place] [address] | + + + | Home Phone [...] Team Providers + +------+ + | Care Arts Manager Name | Role | Phone | [...] Hospital | [facility] | Scotty Galdamez, | DDD (degenerative | | 2018 | Encounter | MED CTR XRAY [address] | disc disease), | | | | [place] | [address] | lumbar; Chronic | | | | [place] [address] | [place] [address] | left-sided low back | | | | [phone] | [phone] | pain with left-sided | | | [...] + + + +---------+ + + | [place]-3 Fatty | CAPS, one capsule by | [...] | | | | | | [place] [address] | | | | | | [phone] | | | | | | | | +--------+ + + + + | 05/01/ | Procedure | Cardiology | | | | 2019 | visit | | | | +--------+ + + + + | 05/01/ | Office | Cardiology | [place], | | | 2019 | Visit | | PARISA [place] W | | | | | | [place], | | | | | | [place] [address] | | | | | | [phone] | | | | | | | | +--------+ + + + + | 05/21/ | Implant | Cardiology | SunshinecherelleDaljit, | Remote Device | | 2019 | Monitor | | [facility] | Interrogation | | | | | [place], | (Primary Dx); | | | | | [place] [address] | Pacemaker; | | | | | [phone] | Sinoatrial node | | | | [...]
--- OUTSIDE RECORDS SUMMARY | ~2020-04-13 | XMS | Encounter Summary ---
Demographics + + + | Address | [address] | | | [place] [address] | + + + | Home Phone [...] Providers + +------+ + | Care Water Filter Cleaner Name | Role | Phone | [...] | 01/04/ | Telephone | [facility] | Emmanuel Daniel MD | Other | | 2019 | | GASTROENTEROLOGY | [address], [place] | | | | | [address] [place] | [address] [place], [place] | | | | | [address] [place], [place] | [address] | | | | | [address] | | | | | | [phone] | | | +--------+ + + + [...] | | | | | | [place] [address] | | | | | | [phone] | | | | | | | [...] | | | | | | [place] [address] | | | | | | [phone] | | | | | | | | +--------+ + + + + | 05/21/ | Implant | Cardiology | Daljit Singletary, | Remote Device | | 2019 | Monitor | | [facility] | Interrogation | | | | | [place], | (Primary Dx); | | | | | [place] [address] | Pacemaker; | | | | | [phone] | Sinoatrial node | | | | | | dysfunction (HCC) | | | | | | with symptomatic | | | | | | bradycardia | +--------+ + + + + documented as of this encounter Visit Diagnoses Not on filedocumented in this encounter"
--- OUTSIDE RECORDS SUMMARY | ~2020-04-13 | XMS | Encounter Summary ---
Demographics + + + | Address | [address] | | | [place] [address] | + + + | Home Phone [...] Team Providers + +------+ + | Care Luncheonette Manager Name | Role | Phone | [...] + | 01/03/ | Office | [facility] | [place], | CAD (coronary artery | | 2012 | Visit | CARDIOLOGY [address] | Janeen, AUDIO VISUAL DESIGN ENGINEER [address] | disease) (Primary | | | | [place], | [place], | Dx); Bradycardia; | | | | [place] [address] | [place] [address] | HTN (hypertension); | | | | [phone] | [phone] | Lightheadedness | | | | | [...] tablet Take 1,000 mg by mouth Daily. [place]-3 Fatty Acids (SALMON OIL-1000 PO) CAPS, one [...] himself t o the emergency department at [facility] in [place], [place]. EKG showed normal s inus rhythm [...] Refer patient to an electrophysiology specialist in [place] for further evaluation for P VC's ablation. I have given verbal instructions and written material for patient to read mo re about the procedure. 2. Check blood pressure and pulse twice daily for two weeks and return the log to our offic e. 3. Followup appointment after patient's appointment with career development specialist/ablation. IJaneen ARNP, saw this patient under the direct supervision of Daljit Singletary MD Portions of this report were transcribed using voice recognition software. Every effort wa s made to ensure accuracy; however, inadvertent computerized sew on operator errors may be pre sent. documented [...] | | | | | | [place] [address] | | | | | | [phone] | | | | | | | | +--------+ + + + + | 05/01/ | Procedure | Cardiology | | | | 2019 | visit | | | | +--------+ + + + + | 05/01/ | Office | Cardiology | [place], | | | 2019 | Visit | | PARISA Vernon [address] | | | | | | [place], | | | | | | [place] [address] | | | | | | [phone] | | | | | | | | +--------+ + + + + | 05/21/ | Implant | Cardiology | Daljit Singletary, | Remote Device | 2019 | Monitor | | [address] [place] | Interrogation | | | | | [place], | (Primary Dx); | | | | | [place] [address] | Pacemaker; | | | | | [phone] | Sinoatrial node | | | | | | dysfunction (HCC) | | | | | | with symptomatic | | | | | | bradycardia | +--------+ + + + + documented as of this encounter Visit Diagnoses + + | Diagnosis | + + | CAD (coronary artery disease) - Primary Coronary atherosclerosis of unspecified type | | of vessel, ute or graft | + + | Bradycardia Other specified cardiac dysrhythmias | + + | HTN (hypertension) Unspecified essential hypertension | + + | Lightheadedness Dizziness and giddiness | + + documented in this encounter
--- OUTSIDE RECORDS SUMMARY | ~2020-04-13 | XMS | Encounter Summary ---
Demographics + + + | Address | [address] | | | [place] [address] | + + + | Home Phone [...] Team Providers + +------+ + | Care Crystal Grower Name | Role | Phone | [...] | Visit | CARDIOLOGY [address] | HEALTH CARE COACH [address] [place] | Dx) | | | | [place], | [place], [place] | | | | | [place] [address] | [address] | | | | | [phone] | | | +--------+---------+ + + + [...] Sanchez Date: December 21, 2012 : 1960 Automotive Service Consultant: PARISA Velazquez Device Environmental Health Safety Manager: Medtronic Sense (mV) Impedance (?) Capture (V) Capture (ms) A Lead 4-5.6 423 1.5 0.09 RV Lead >31.36 539 2.0 0.09 LV Lead Battery Impedance (?): 301 Battery Voltage (V): 2.8 IA Interval (ms): 140 AR Interval (ms): 210 VA Conduction: Mode Switch Events: N/A % of time: -QUALITY ASSURANCE NURSE: 0.6 AP-QUALITY ASSURANCE NURSE: 1.3 -VS: 23.9 AP-VS: 74.2 QUALITY ASSURANCE NURSE: Magnetic Rate: 85 LINDA: 65 LEAH: Current [...] | | | | | | [place] [address] | | | | | | [phone] | | | | | | | | +--------+ + + + + | 05/01/ | Procedure | Cardiology | | | | 2019 | visit | | | | +--------+ + + + + | 05/01/ | Office | Cardiology | [place], | | | 2019 | Visit | | PARISA Vernon [address] | | | | | | [place], | | | | | | [place] [address] | | | | | | [phone] | | | | | | | | +--------+ + + + + | 05/21/ | Implant | Cardiology | Daljit Singletary, | Remote Device | 2019 | Monitor | | [address] [place] | Interrogation | | | | | [place], | (Primary Dx); | | | | | [place] [address] | Pacemaker; | | | | | [phone] | Sinoatrial node | | | | [...]
--- OUTSIDE RECORDS SUMMARY | ~2020-04-13 | XMS | Encounter Summary ---
Demographics + + + | Address | [address] | | | [place] [address] | + + + | Home Phone [...] Providers + +------+ + | Care Production Administrator Name | Role | Phone | + +------+ + | Kirk French MD | PCP | | + +------+ + Reason for Visit +--------+ + | Reason | Comments | +--------+ + | Other | question about diet medication | +--------+ + Encounter Details +--------+ + + + + | Date | Type | Department | Care Team | Description | +--------+ + + + + | 12/23/ | Telephone | [facility] | Daljit Singletary, | Other (question | | 2015 | | CARDIOLOGY [address] | [address] [place] | about diet | | | | [place], | [place], | medication) | | | | [place] [address] | [place] [address] | | | | | [phone] | [phone] | | | | | | | [...] [place] | | | | | | [place] [address] | | | | | | [phone] | | | | | | | | +--------+ + + + + | 05/01/ | Procedure | Cardiology | | | | 2019 | visit | | | | +--------+ + + + + | 05/01/ | Office | Cardiology | [place] | | | 2019 | Visit | | Janeen, ONLINE PRODUCER [address] | | | | | | [place], | | | | | | [place] [address] | | | | | | [phone] | | | | | | | | +--------+ + + + + | 05/21/ | Implant | Cardiology | Daljit Singletary, | Remote Device | | 2020 | Monitor | | MD [address] | Interrogation | | | | | [place], | (Primary Dx); | | | | | [place] [address] | Pacemaker; | | | | | [phone] | Sinoatrial node | | | | | | dysfunction ([facility]) | | | | | | with symptomatic | | | | | | bradycardia | +--------+ + + + + documented as of this encounter Visit Diagnoses Not on filedocumented in this encounter"
--- OUTSIDE RECORDS SUMMARY | ~2020-04-13 | XMS | Encounter Summary ---
Demographics + + + | Address | [address] | | | [place] [address] | + + + | Home Phone [...] Phone | + + +---------+ + | Maira Isabel Sanchez | ECON | Unknown | | + + +---------+ + Care Team Providers + +------+ + | Care Ticket Machine Operator Name | Role | Phone | + +------+ + PCP | Unavailable | + +------+ + Encounter Details +--------+ + + + + | Date | Type | Department | Care Team | Description | +--------+ + + + + | 01/17/ | [facility] | [facility] | Jonas Ramos, | | | 2009 | Encounter | MED CTR EMERGENCY | MD [address] | | | | | CENTER [address] [place] | [facility] | | | | | [place] | [place] [address] | | | | | [address] | [phone] | | | | | [phone] | | | +--------+ + + + [...] | | | | | | [place], | | | | | | [place] [address] | | | | | | [phone] | | | | | | | | +--------+ + + + + | 05/01/ | Procedure | Cardiology | | | | 2019 | visit | | | | +--------+ + + + + | 05/01/ | Office | Cardiology | [place], | | | 2019 | Visit | | PARISA Vernon W | | | | | | [place], | | | | | | [place] [address] | | | | | | [phone] | | | | | | | | +--------+ + + + + | 05/21/ | Implant | Cardiology | Daljit Singletary, | Remote Device | | 2019 | Monitor | | MD [address] [place] | Interrogation | | | | | [place], | (Primary Dx); | | | | | [place] [address] | Pacemaker; | | | | | [phone] | Sinoatrial node | | | | | | dysfunction (HCC) | | | | | | with symptomatic | | | | | | bradycardia | +--------+ + + + + documented as of this encounter Visit Diagnoses Not on filedocumented in this encounter"
--- OUTSIDE RECORDS SUMMARY | ~2020-04-13 | XMS | Encounter Summary ---
Demographics + + + | Address | [address] | | | [place] [address] | + + + | Home Phone [...] Providers + +------+ + | Care Commercial Relationship Manager Name | Role | Phone | + +------+ + | Michael Amanda DO | PCP | | + +------+ + Encounter Details +--------+ + + + + | Date | Type | Department | Care Team | Description | +--------+ + + + + | 10/01/ | Hospital | [facility] | Mary Bradshaw | | | 2013 | Encounter | MED CTR [facility] | Guy Larkin MD | | | | | [address] [place] | [address] | | | | | [place], [place] | [place], [place] | | | | | [address] | [address] | | | | | [phone] | | | +--------+ + + + [...] + + + +---------+ + + | [place]-3 Fatty | CAPS, one capsule by [...] | | | | | | [place] [address] | | | | | | [phone] | | | | | | | | +--------+ + + + + | 05/01/ | Procedure | Cardiology | | | | 2019 | visit | | | | +--------+ + + + + | 05/01/ | Office | Cardiology | [place], | | | 2019 | Visit | | PARISA Vernon [address] | | | | | | [place], | | | | | | [place] [address] | | | | | | [phone] | | | | | | | | +--------+ + + + + | 05/21/ | Implant | Cardiology | Daljit Singletary, | Remote Device | | 2019 | Monitor | | [address] [place] | Interrogation | | | | | [place], | (Primary Dx); | | | | | [place] [address] | Pacemaker; | | | | | [phone] | Sinoatrial node | | | | [...] + | MISCELLANEOUS LAB | | | [phone] | + +---------+ + + | MISCELANIOUS LAB | | | [phone] | + +---------+ + + documented in this encounter Visit Diagnoses Not on filedocumented in this encounter"
--- OUTSIDE RECORDS SUMMARY | ~2020-04-13 | XMS | Encounter Summary ---
Demographics + + + | Address | [address] | | | [place] [address] | + + + | Home Phone [...] Team Providers + +------+ + | Care Oncology Account Specialist Name | Role | Phone | [...] W | question) | | | | [place], | [place], | | | | | [place] [address] | [place] [address] | | | | | [phone] | [phone] | | | | | | | [...] | | | | | | [place] [address] | | | | | | [phone] | | | | | | | | +--------+ + + + + | 05/01/ | Procedure | Cardiology | | | | 2019 | visit | | | | +--------+ + + + + | 05/01/ | Office | Cardiology | [place], | | | 2019 | Visit | | PARISA Vernon [address] | | | | | | [place], | | | | | | [place] [address] | | | | | | [phone] | | | | | | | | +--------+ + + + + | 05/21/ | Implant | Cardiology | Daljit Singletary, | Remote Device | | 2019 | Monitor | | [address] [place] | Interrogation | | | | | [place], | (Primary Dx); | | | | | [place] [address] | Pacemaker; | | | | | [phone] | Sinoatrial node | | | | | | dysfunction ([facility]) | | | | | | with symptomatic | | | | | | bradycardia | +--------+ + + + + documented as of this encounter Visit Diagnoses Not on filedocumented in this encounter"
--- OUTSIDE RECORDS SUMMARY | ~2020-04-13 | XMS | Encounter Summary ---
Demographics + + + | Address | [address] | | | [place] [address] | + + + | Home Phone [...] Team Providers + +------+ + | Care Fixture Designer Name | Role | Phone | [...] | CARDIOLOGY [address] | [address] | Interrogation | | | | [place], | [place], | (Primary Dx); | | | | [place] [address] | [place] [address] | Presence of | | | | [phone] | [phone] | permanent cardiac | | | | [...] | | | | | | [place] [address] | | | | | | [phone] | | | | | | | | +--------+ + + + + | 05/01/ | Procedure | Cardiology | | | | 2019 | visit | | | | +--------+ + + + + | 05/01/ | Office | Cardiology | [place], | | | 2019 | Visit | | PARISA Vernon [address] | | | | | | [place], | | | | | | [place] [address] | | | | | | [phone] | | | | | | | | +--------+ + + + + | 05/21/ | Implant | Cardiology | Daljit Singletary, | Remote Device | | 2019 | Monitor | | [address] [facility] | Interrogation | | | | | [place], | (Primary Dx); | | | | | [place] [address] | Pacemaker; | | | | | [phone] | Sinoatrial node | | | | [...] Paceart documentation and remote PDF scanned into [employer] | | | for remote interrogation results. [...]
--- OUTSIDE RECORDS SUMMARY | ~2020-04-13 | XMS | Encounter Summary ---
Demographics + + + | Address | [address] [place] [address] [address] | | | [place] [address] | + + + | Home Phone [...] [place] | | | | | [address] | | + + + + + Care Team Providers + +------+ + | Care Licensed Clinician Name | Role | Phone | + [...] | | | [address] | [place], [place] | | | | | Mailcode: Center | [address] | | | | | for Health and | [phone] | | | | | [facility], [facility] [address] | | | | | | [place], [place] | | | | | | [address] | | | | | | [phone] | | | +--------+ + + + [...]
--- OUTSIDE RECORDS SUMMARY | ~2020-04-13 | XMS | Encounter Summary ---
Demographics + + + | Address | [address] | | | [place] [address] | + + + | Home Phone [...] Team Providers + +------+ + | Care Engineering Inspection Assistant Name | Role | Phone | [...] | 05/08/ | Telephone | [facility] [place] | Emmanuel Daniel MD | Other | | 2019 | | GASTROENTEROLOGY | [address] [place], [place] | | | | | [address] [place] | [address] [place], [place] | | | | | [address] [place], [place] | [address] | | | | | [address] | | | | | | [phone] | | | +--------+ + + + [...] | | | | | | [place] [address] | | | | | | [phone] | | | | | | | | +--------+ + + + + | 05/01/ | Procedure | Cardiology | | | | 2020 | visit | | | | +--------+ + + + + | 06/10/ | Office | Cardiology | [place], | | | 2019 | Visit | | PARISA Vernon [address] | | | | | | [place], | | | | | | [place] [address] | | | | | | [phone] | | | | | | | | +--------+ + + + + | 05/21/ | Implant | Cardiology | Daljit Singletary, | Remote Device | 2019 | Monitor | | [address] | Interrogation | | | | | [place], | (Primary Dx); | | | | | [place] [address] | Pacemaker; | | | | | [phone] | Sinoatrial node | | | | | | dysfunction (HCC) | | | | | | with symptomatic | | | | | | bradycardia | +--------+ + + + + documented as of this encounter Visit Diagnoses Not on filedocumented in this encounter"
--- OUTSIDE RECORDS SUMMARY | ~2020-04-13 | XMS | Encounter Summary ---
Demographics + + + | Address | [address] | | | [place] [address] | + + + | Home Phone [...] Team Providers + +------+ + | Care Icing Machine Operator Name | Role | Phone [...] 2019 | | GASTROENTEROLOGY | MD [address] | | | | | [address] | [place]. [place] | | | | | [address] [place] [address] | [place] [address] | | | | | [address] | | | | | | [phone] | | | +--------+ + + + [...] W | | | | | | [place], | | | | | | [place] [address] | | | | | | [phone] | | | | | | | | +--------+ + + + + | 05/01/ | Procedure | Cardiology | | | | 2019 | visit | | | | +--------+ + + + + | 05/01/ | Office | Cardiology | [place], | | | 2019 | Visit | | PARISA Vernon W | | | | | | [place], | | | | | | [place] [address] | | | | | | [phone] | | | | | | | | +--------+ + + + + | 05/21/ | Implant | Cardiology | Daljit Singletary, | Remote Device | | 2019 | Monitor | | MD [address] [place] | Interrogation | | | | | [place], | (Primary Dx); | | | | | [place] [address] | Pacemaker; | | | | | [phone] | Sinoatrial node | | | | [...] | | | | | Emmanuel Daniel [facility] | | | | + + [...]
--- OUTSIDE RECORDS SUMMARY | ~2020-04-13 | XMS | Encounter Summary ---
Demographics + + + | Address | [address] [place] [address] [address] | | | [place] [address] | + + + | Home Phone | | + + + | Preferred Language | Unknown | + + + | Marital Status | | + + + | Uatsdin Affiliation | Unknown | + + + [...] [place] | | | | | [address] | | + + + + + Care Team Providers + +------+ + | Care Tapper Operator Name | Role | Phone | [...] | | 2019 | | Center at [facility] [address] | MD [address] | | | | | [address] | [place], [place] | | | | | Mailcode: Center | [address] | | | | | [facility] and | [phone] | | | | | [facility] 2 | | | | | | [place], [place] | | | | | | [address] | | | | | | [phone] | | | +--------+ + + + [...]
--- OUTSIDE RECORDS SUMMARY | ~2020-04-13 | XMS | Encounter Summary ---
Demographics + + + | Address | [address] | | | [place] [address] | + + + | Home Phone [...] Team Providers + +------+ + | Care Dinkey Dispatcher Name | Role | Phone | + [...] | 07/07/ | Telephone | [facility] [place] | Daljit Singletary, | Appointment | | 2012 | | CARDIOLOGY [address] | MD [address] [place] | | | | | [place], | [place], | | | | | [place] [address] | [place] [address] | | | | | [phone] | [phone] | | | | | | | [...] | | | | | | [place], | | | | | | [place] [address] | | | | | | [phone] | | | | | | | | +--------+ + + + + | 05/01/ | Procedure | Cardiology | | | | 2019 | visit | | | | +--------+ + + + + | 05/01/ | Office | Cardiology | [place], | | | 2019 | Visit | | PARISA Vernon W | | | | | | [place], | | | | | | [place] [address] | | | | | | [phone] | | | | | | | | +--------+ + + + + | 05/21/ | Implant | Cardiology | Daljit Singletary, | Remote Device | | 2020 | Monitor | | MD Sim [facility] | Interrogation | | | | | [place], | (Primary Dx); | | | | | [place] [address] | Pacemaker; | | | | | [phone] | Sinoatrial node | | | | | | dysfunction (HCC) | | | | | | with symptomatic | | | | | | bradycardia | +--------+ + + + + documented as of this encounter Visit Diagnoses Not on filedocumented in this encounter"
--- OUTSIDE RECORDS SUMMARY | ~2020-04-13 | XMS | Encounter Summary ---
Demographics + + + | Address | [address] | | | [place] [address] | + + + | Home Phone [...] Providers + +------+ + | Care Automatic Bandsaw Tender Name | Role | Phone | [...] + | 03/24/ | Telephone | [facility] | [place], | Other (chest pain) | | 2018 | | CARDIOLOGY [address] | PARISA Vernon [address] | | | | | [place], | [place], | | | | | [place] [address] | [place] [address] | | | | | [phone] | [phone] | | | | | | | [...] | | | | | | [place] [address] | | | | | | [phone] | | | | | | | [...] | | | | | | [place] [address] | | | | | | [phone] | | | | | | | | +--------+ + + + + | 05/21/ | Implant | Cardiology | Daljit Singletary, | Remote Device | 2019 | Monitor | | [address] | Interrogation | | | | | [place], | (Primary Dx); | | | | | [place] [address] | Pacemaker; | | | | | [phone] | Sinoatrial node | | | | | | dysfunction (HCC) | | | | | | with symptomatic | | | | | | bradycardia | +--------+ + + + + documented as of this encounter Visit Diagnoses Not on filedocumented in this encounter"
--- OUTSIDE RECORDS SUMMARY | ~2020-04-13 | XMS | Encounter Summary ---
Demographics + + + | Address | [address] | | | [place] [address] | + + + | Home Phone [...] Providers + +------+ + | Care Fisher Pound Net Or Trap Name | Role | Phone | + [...] | | | type | | [place] [address] | | | | | Unintentiona | | Phone: | | | | | l weight | | [phone] | | | | | loss | | Fax: | | | | | Pacemaker | | [phone] | | | | | Opioid type [...] | | | | | | | MS | | | | | | | COLONOSCOPY | | | | | | | FLX DX | | | | | | | W/COLLJ SPEC | | | | | | | WHEN PFRMD | | | | | | | MS | | | | | | | COLONOSCOPY | | | | | | | W/BIOPSY | | | | | | | SINGLE/MULTI | | | | | | | PLE MS | | | | | | | COLSC FLX | | | | | | | W/RMVL OF | | | | | | | TUMOR POLYP | | | | | | | LESION SNARE | | | | | | | TQ MS | | | | | | | [...] + + | 01/21/ | Hospital | [facility] | Darin Gandhi | Rectal bleeding; | | 2019 | Encounter | MED CTR MP INTRA OP | MD Jacek [address] | Diarrhea, | | | | [address] | [address] [place] | unspecified type; | | | | [place], [place] | [place] [address] | Unintentional weight | | | | [address] | [phone] | loss; Opioid type | | | | [phone] | | dependence, | | | | | | continuous ([facility]); | | | | | | Allergy [...] | | | | | | [place] [address] | | | | | | [phone] | | | | | | | | +--------+ + + + + | 05/01/ | Procedure | Cardiology | | | | 2019 | visit | | | | +--------+ + + + + | 05/01/ | Office | Cardiology | [place], | | | 2019 | Visit | | PARISA Vernon W | | | | | | [place], | | | | | | [place] [address] | | | | | | [phone] | | | | | | | | +--------+ + + + + | 05/21/ | Implant | Cardiology | Daljit Singletary, | Remote Device | | 2019 | Monitor | | [address] | Interrogation | | | | | [place], | (Primary Dx); | | | | | [place] [address] | Pacemaker; | | | | | [phone] | Sinoatrial node | | | | [...] + + | Coronary artery disease involving mi'kmaq coronary artery of mi'kmaq heart without | | angina pectoris | [...]
--- OUTSIDE RECORDS SUMMARY | ~2020-04-13 | XMS | Encounter Summary ---
Demographics + + + | Address | [address] | | | [place] [address] | + + + | Home Phone [...] Team Providers + +------+ + | Care Carpenter Wooden Tank Erecting Name | Role | Phone | + [...] + + | 12/29/ | Office | [facility] | [place], | Ascending thoracic | | 2017 | Visit | CARDIOLOGY [address] | PARISA Vernon [address] | aortic aneurysm | | | | [place], | [place], | (HCC) (Primary Dx); | | | | [place] [address] | [place] [address] | Coronary artery | | | | [phone] | [phone] | disease involving | | | | | | [place] coronary | | | | | | artery of [place] | | | | | | heart [...] of non-critical coronary artery d isease involving [place] coronary artery of [place] heart without angina pectoris, essential h ypertension, [...] start Losartan 25 mg once every day, [facility] blood pressure log, and follow up in 3 months. Since that time, he went to the ER in [facility] with chest pain at the [...] Preventative health care Coronary artery disease involving [place] coronary artery of [place] heart without angina pectoris Cannabis abuse, daily [...] 3RD DOSE, CALL 911 100 tablet 3 [place]-3 Fatty Acids (SALMON OIL-1000 PO) CAPS, one capsule by mouth daily twice daily ONE TOUCH DELICA LANCETS [facility] Check glucose as [...] was found Confirmed by SYDNI SINGLETARY MD ([id number]) on 06/23/2016 2:08:15 PM LAB RESULTS reviewed [...] PLTEX 129* 05/12/2016 I reviewed records from [facility] for office visit on 09/01/2016 which is [...] He is in class I of the [employer] functional class. On physical examination there are no signs of fl uid overload. 2. Non-critical Coronary artery disease involving [place] coronary a rtery of [place] heart without angina pectoris: A. Normal exercise [...] to go back in 3 days to [place] for an attempt of ablation under general [...] is a normal stable device function. Estimated Conferi ng battery longevity is 5 years.. 5. [...] this chart may have been created with [employer] voice recognition software. Occasi onal wrong-word or [...] W | | | | | | [place], | | | | | | [place] [address] | | | | | | [phone] | | | | | | | | +--------+ + + + + | 05/01/ | Procedure | Cardiology | | | | 2019 | visit | | | | +--------+ + + + + | 05/01/ | Office | Cardiology | [place] | | | 2019 | Visit | | PARISA Vernon W | | | | | | [place], | | | | | | [place] [address] | | | | | | [phone] | | | | | | | | +--------+ + + + + | 05/21/ | Implant | Cardiology | Sydni Singletary, | Remote Device | 2019 | Monitor | | MD [address] [place] | Interrogation | | | | | [place], | (Primary Dx); | | | | | [place] [address] | Pacemaker; | | | | | [phone] | Sinoatrial node | | | | [...] + + | Coronary artery disease involving [place] coronary artery of [place] heart without | | angina pectoris | + + | Essential hypertension with goal blood pressure less than 130/80 | + + | Hyperlipidemia, mixed Mixed hyperlipidemia | + + documented in this encounter
--- OUTSIDE RECORDS SUMMARY | ~2020-04-13 | XMS | Encounter Summary ---
Demographics + + + | Address | [address] | | | [place] [address] | + + + | Home Phone [...] Providers + +------+ + | Care Product Advisor Name | Role | Phone | [...] | | | | [place] | [address] | | | | | [address] | | | | | | [phone] | | | +--------+ + + + [...] W | | | | | | [place], | | | | | | [place] [address] | | | | | | [phone] | | | | | | | | +--------+ + + + + | 05/01/ | Procedure | Cardiology | | | | 2019 | visit | | | | +--------+ + + + + | 05/01/ | Office | Cardiology | Silvia, | | | 2019 | Visit | | PARISA Vernon W | | | | | | [place], | | | | | | [place] [address] | | | | | | [phone] | | | | | | | | +--------+ + + + + | 05/21/ | Implant | Cardiology | Daljit Singletary, | Remote Device | 2019 | Monitor | | MD Chiquis Oro | Interrogation | | | | | [place], | (Primary Dx); | | | | | [place] [address] | Pacemaker; | | | | | [phone] | Sinoatrial node | | | | | | dysfunction (HCC) | | | | | | with symptomatic | | | | | | bradycardia | +--------+ + + + + documented as of this encounter Visit Diagnoses Not on filedocumented in this encounter"
--- OUTSIDE RECORDS SUMMARY | ~2020-04-13 | XMS | Encounter Summary ---
Demographics + + + | Address | [address] [place] [address] [address] | | | [place] [address] | + + + | Home Phone [...] [place] | | | | | [address] | | + + + + + [...] at [facility] [address] | Gastroenterology | Gastroenterology | | | | Kaylah Crane | | | | | | Mailcode: Adrian | | | | | | [facility] and | | | | | | [place] [address] | | | | | | [place], [place] | | | | | | [address] | | | | | | [phone] | | | +--------+ + + + [...]
--- OUTSIDE RECORDS SUMMARY | ~2020-04-13 | XMS | Encounter Summary ---
Demographics + + + | Address | [address] | | | [place] [address] | + + + | Home Phone [...] Providers + +------+ + | Care Theatrical Performer Name | Role | Phone | [...] | disease involving | | | | [place], | [place], | knik coronary | | | | [place] [address] | [place] [address] | artery of knik | | | | [phone] | [phone] | heart without angina | | | [...] | | | | | | [place], | | | | | | [place] [address] | | | | | | [phone] | | | | | | | | +--------+ + + + + | 05/01/ | Procedure | Cardiology | | | | 2019 | visit | | | | +--------+ + + + + | 05/01/ | Office | Cardiology | Silvia, | | | 2019 | Visit | | PARISA Vernon [address] | | | | | | [place], | | | | | | [place] [address] | | | | | | [phone] | | | | | | | | +--------+ + + + + | 05/21/ | Implant | Cardiology | AnshujohnsoncherelleShaistapawanotto, | Remote Device | | 2019 | Monitor | | MD [facility] | Interrogation | | | | | [place], | (Primary Dx); | | | | | [place] [address] | Pacemaker; | | | | | [phone] | Sinoatrial node | | | | [...] MD | | | | | | ([id number]) on 06/23/2016 | | | | | [...] + + | Coronary artery disease involving knik coronary artery of knik heart without | | angina pectoris - Primary | + + | Essential hypertension with goal blood pressure less than 130/80 | + + documented in this encounter"
--- OUTSIDE RECORDS SUMMARY | ~2020-04-13 | XMS | Encounter Summary ---
Demographics + + + | Address | [address] | | | [place] [address] | + + + | Home Phone [...] Team Providers + +------+ + | Care Mail Clerk Name | Role | Phone | [...] | | | | CENTER [address] | [place] | (Primary Dx) | | 07/28/ | | [place] | [address] | | | 2017 | | [address] | | | | | | [phone] | | | +--------+ + + + [...] sent through Care Everywhere.Chest Pain, Non cardiac (Canadian)documented in this encounter Medications at Time of [...] + + +---------+ + + | [place]-3 Fatty | CAPS, one capsule by | [...] W | | | | | | [place], | | | | | | [place] [address] | | | | | | [phone] | | | | | | | | +--------+ + + + + | 05/01/ | Procedure | Cardiology | | | | 2019 | visit | | | | +--------+ + + + + | 05/01/ | Office | Cardiology | Silvia, | | | 2019 | Visit | | PARISA [place] W | | | | | | [place], | | | | | | [place] [address] | | | | | | [phone] | | | | | | | | +--------+ + + + + | 05/21/ | Implant | Cardiology | Daljit Singletary, | Remote Device | 2019 | Monitor | | [address] [place] | Interrogation | | | | | [place], | (Primary Dx); | | | | | [place] [address] | Pacemaker; | | | | | [phone] | Sinoatrial node | | | | [...] | | n - | | | 09/05/ | | | 2018 | | | 10:33 | | | [...] | | | FICATI | | | ON?09/ | | | 05/201 | | | 8 | | | 22:29? | | | HODGEN | | | , | | | FREDER | | | ICK | | | W?MRN: | | | | | | [id number] | | | [id number] | | | his | | | [...] | | | ent/60 | | | [id number] | | | -5586- | | | [...] | | | St. | | | [place] | | | y | | | [...] | | | ext. | | | [address] | | | or go | | [...] | | | M.D. | | | Hot Mill Shearer | | | al | | | [...] | | | | | | [employer] | | | | | [...] + | [facility] | [address] | [place] | [phone] | | [facility] | | [address] | | | - LABORATORY | | [...] mL/min/1.73m2 | [facility] | | | [facility] | RATE,ESTIMATED | | MEDICAL | | | | mL/min/1.41j0Shxw than | | CENTER - | | [...] 4.3 | 3.2 - 5.0 g/dL | [facility] [...] + | [facility] | [address] | [place] | [phone] | | [facility] | | [address] | | | - LABORATORY | | | | + + + + + CBC with Differential (07/27/2018 11:12 PM PDT) + +-------+ + + + | Component | Value | Ref Range | Performed | Pathologist | | | | | At | Signature | + +-------+ + + + | WBC | 7.2 | 4.0 - 11.0 K/uL | [facility] | | | | | | [facility] | | | | | | [facility]ICAL | | | | | | CENTER - | | | | | | LABORATORY | | + +-------+ + + + | RBC | 4.99 | 4.30 - 5.70 | [facility] | | | | | M/uL | [facility] | [...] | | Eosinophils | | K/uL | . [facility] | [...] + | [facility] | [address] | [place] | [phone] | | [facility] | | [address] | | | - LABORATORY | | [...] | | | | HIREN WINKLER, ANGELA ([id number]) | | | | | | on [...] Oral, ONCE, Wed07/27/18 at 2355, | | | | | | | For 1 dose, Mix lidocaine and | | | | | | | Maalox. Kalia well., | | | | | | [...] Oral, ONCE, 07/27/18 at 2355, | | AM PDT | [...]
--- OUTSIDE RECORDS SUMMARY | ~2020-04-13 | XMS | Encounter Summary ---
Demographics + + + | Address | [address] | | | [place] [address] | + + + | Home Phone [...] Team Providers + +------+ + | Care Doping Supervisor Name | Role | Phone | [...] | | PVCs | PARISA Vernon | [address] | | | | | Procedures | [address] | [address] | | | | | [place] OFFICE | [place] | [place] | | | | | CONSULTATION | [place], | [address] Phone: | | | | | NEW/ESTAB | [place] | [phone] | | | | | PATIENT 40 | [address] | Fax: | | | | | MIN | Phone: | [phone] | | | | | | [phone] | | | | | | | Fax: | | | | | | | [phone] | | +--------+--------+ + + + + Encounter Details +--------+---------+ + + + | Date | Type | Department | Care Team | Description | +--------+---------+ + + + | 11/30/ | Office | [facility] | Jay Gambino MD | Symptomatic PVCs | | 2015 | Visit | [place] [place] | [address] | (Primary Dx) | | | | HI4 [address] | [address] [place], | | | | | [facility] [address] [place] | [place] [address] | | | | | [address] | [phone] | | | | | [phone] | | | +--------+---------+ + + + [...] Gambino MD - 11/30/2014 5:37 PM PST [facility] [address] [place] [address] Patient Name: Moe Sanchez Date: 1960 Date [...] luz marcos as needed for Chest pain. [place]-3 Fatty Acids (SALMON OIL-1000 PO) CAPS, one [...] (1980 1984); Hypoglycemia; Drug addiction in remission ([facility]); HTN (hypertension); Hypercholesterolemia; Bipolar 1 disorder [...] were not detected in the editing p EndoDexess. Should you have any questions or concerns, [...] W | | | | | | [place], | | | | | | [place] [address] | | | | | | [phone] | | | | | | | | +--------+ + + + + | 05/01/ | Procedure | Cardiology | | | | 2019 | visit | | | | +--------+ + + + + | 05/01/ | Office | Cardiology | Silvia, | | | 2019 | Visit | | [address] [address] W | | | | | | [place], | | | | | | [place] [address] | | | | | | [phone] | | | | | | | | +--------+ + + + + | 05/21/ | Implant | Cardiology | AnshujohnsoncherelleDaljit, | Remote Device | | 2019 | Monitor | | [address] [facility] | Interrogation | | | | | [place], | (Primary Dx); | | | | | [place] [address] | Pacemaker; | | | | | [phone] | Sinoatrial node | | | | [...]
--- OUTSIDE RECORDS SUMMARY | ~2020-04-13 | XMS | Encounter Summary ---
Demographics + + + | Address | [address] | | | [place] [address] | + + + | Home Phone [...] Providers + +------+ + | Care Gas Turbine Mechanic Name | Role | Phone | [...] Refill | | 2013 | | [facility] [place] | DO [address] | | | | | [address] | [place] | | | | | [place] | [address] | | | | | [address] | | | | | | [phone] | | | +--------+--------+ + + + [...] W | | | | | | [place], | | | | | | [place] [address] | | | | | | [phone] | | | | | | | | +--------+ + + + + | 05/01/ | Procedure | Cardiology | | | | 2019 | visit | | | | +--------+ + + + + | 05/01/ | Office | Cardiology | Silvia, | | | 2019 | Visit | | PAR[address] | | | | | | [place], | | | | | | [place] [address] | | | | | | [phone] | | | | | | | | +--------+ + + + + | 05/21/ | Implant | Cardiology | Daljit Singletary, | Remote Device | | 2019 | Monitor | | [address] [facility] | Interrogation | | | | | [place], | (Primary Dx); | | | | | [place] [address] | Pacemaker; | | | | | [phone] | Sinoatrial node | | | | | | dysfunction (HCC) | | | | | | with symptomatic | | | | | | bradycardia | +--------+ + + + + documented as of this encounter Visit Diagnoses Not on filedocumented in this encounter"
--- OUTSIDE RECORDS SUMMARY | ~2020-04-13 | XMS | Encounter Summary ---
Demographics + + + | Address | [address] | | | [place] [address] | + + + | Home Phone [...] Providers + +------+ + | Care Jewelry Designer Name | Role | Phone | [...] + + | 01/05/ | Office | [facility] | [place]via, | Pacemaker - | | 2018 | Visit | CARDIOLOGY [address] | [place] [address] | Medtronic - [id number] | | | | [place], | [place], | [place] - Implanted | | | | [place] [address] | [place] [address] | 06/14/2009 (Primary | | | | [phone] | [phone] | Dx); Chest pain, | | | [...] involving | | | | | | [place]qasuk coronary | | | | | | artery of [place]uk | | | | | | heart [...] of non-critical coronary artery d isease involving [place] coronary artery of [place] heart without angina pectoris, essential h ypertension, [...] pain. He went to the ER in [place] because th e NTG didn't relieved the pain. He was diagnosed with bronchitis. Otherwise he has had no ot her symptoms. He has had a good energy level. He tries to stay active. He has joined a Vocation gym and trying to exercise more often. [...] Preventative health care Coronary artery disease involving [place]qas[place] coronary artery of [place] heart without angina pectoris Cannabis abuse, daily [...] by mouth every evening 90 tablet 0 [facility] Natural Products (OSTEO BI-FLEX/5-LOXIN ADVANCED [...] 3RD DOSE, CALL 911 100 tablet 3 [place]-3 Fatty Acids (SALMON OIL-1000 PO) CAPS, one capsule by mouth daily twice daily ONE TOUCH DELICA LANCETS [facility] Check glucose as needed for [...] RESULTS reviewed during visit today primarily from : LIPID Lab Results Component Value Date TRIG [...] 131 (A) 10/18/2017 I reviewed records from for office visit on 01/2017 whic h [...] overload. 2. Non-critical Coronary artery disease involving [place] coronary a rtery of [place] heart without angina pectoris: A. Normal exercise [...] to go back in 3 days to [place] for an attempt of ablation under general [...] a normal stable device function. Estimated remaining [facility] longevity is 3.5 years.. 5. Lightheadedness [...] this chart may have been created with NuPathe voice recognition software. Occasi onal wrong-word or [...] | | | | | | [place] [address] | | | | | | [phone] | | | | | | | | +--------+ + + + + | 05/01/ | Procedure | Cardiology | | | | 2019 | visit | | | | +--------+ + + + + | 05/01/ | Office | Cardiology | Silvia, | | | 2019 | Visit | | PARISA Vernon [address] | | | | | | [place], | | | | | | [place] [address] | | | | | | [phone] | | | | | | | | +--------+ + + + + | 05/21/ | Implant | Cardiology | Sydni Singletary, | Remote Device | 2019 | Monitor | | [address] [place] | Interrogation | | | | | [place], | (Primary Dx); | | | | | [place] [address] | Pacemaker; | | | | | [phone] | Sinoatrial node | | | | [...] dysfunction | | | | | | ([facility]) with | | | | | | symptomatic | | | | | | bradycardia | | | | | | Symptomatic PVCs | | | | | | Tachycardia | | | | | | Coronary artery | | | | | | disease involving | | | | | | [place]qasuk coronary | | | | | | artery of atqasuk | | | | | | heart [...] aneurysm | | | | | | ([facility]) | | + +--------+ + + + [...] SYDNI | | | | | | ([id number]) on 01/06/2018 | | | | | [...] + + | Coronary artery disease involving atqasuk coronary artery of atqasuk heart without | | angina pectoris | + + | Hyperlipidemia, mixed Mixed hyperlipidemia | + + | Hypertension, unspecified type | + + | Syncope, unspecified syncope type | + + | Ascending thoracic aortic aneurysm (HCC) Thoracic aneurysm without mention of rupture | + + documented in this encounter
--- OUTSIDE RECORDS SUMMARY | ~2020-04-13 | XMS | Encounter Summary ---
Demographics + + + | Address | [address] | | | [place] [address] | + + + | Home Phone [...] Team Providers + +------+ + | Care Transport Medic Name | Role | Phone | + [...] + + | 12/23/ | Telephone | [facility] | Emmanuel Daniel MD | Other (Needs to know | | 2017 | | GASTROENTEROLOGY | [address] [place], [place] | what he can eat | | | | [address] [place] | [address] [place], [place] | today) | | | | [address] [place], [place] | [address] | | | | | [address] | | | | | | [phone] | | | +--------+ + + + [...] | | | | | | [place] [address] | | | | | | [phone] | | | | | | | | +--------+ + + + + | 05/01/ | Procedure | Cardiology | | | | 2019 | visit | | | | +--------+ + + + + | 05/01/ | Office | Cardiology | Silvia, | | | 2019 | Visit | | PARISA Vernon [address] | | | | | | [place], | | | | | | [place] [address] | | | | | | [phone] | | | | | | | | +--------+ + + + + | 05/21/ | Implant | Cardiology | Daljit Singletary, | Remote Device | | 2019 | Monitor | | [address] [facility] | Interrogation | | | | | [place], | (Primary Dx); | | | | | [place] [address] | Pacemaker; | | | | | [phone] | Sinoatrial node | | | | | | dysfunction (HCC) | | | | | | with symptomatic | | | | | | bradycardia | +--------+ + + + + documented as of this encounter Visit Diagnoses Not on filedocumented in this encounter"
--- OUTSIDE RECORDS SUMMARY | ~2020-04-13 | XMS | Encounter Summary ---
Demographics + + + | Address | [address] | | | [place] [address] | + + + | Home Phone [...] Providers + +------+ + | Care Clinical Informaticist Name | Role | Phone | + +------+ + | Kirk French MD | PCP | | + +------+ + Encounter Details +--------+---------+ + + + | Date | Type | Department | Care Team | Description | +--------+---------+ + + + | 09/26/ | Office | [facility] | Kirk French | Weight loss (Primary | | 2018 | Visit | [facility] | MD [address] | Dx); Bipolar | | | | [facility] [address] | affective disorder, | | | | [address] | [place] [address] | remission status | | | | [place], [place] | [phone] | unspecified (HCC); | | | | [address] | | Mixed anxiety | | | | [phone] | | depressive disorder; | | | [...] Medtronic Peptic ulcer disease Premature ventricular contraction health care 06/26/2013 LAST PSA:12/16/2010 RESULT:0.14 LAST [...] CV LHC; Surgeon: Daljit Singletary MD; Location: [facility] CV LAB CARDIAC CATHERIZATION N/A 01/25/2019 Procedure: CV Cor Angio; Surgeon: Daljit Singletary MD; Location: [facility] CV LAB COLONOSCOPY N/A 12/24/2017 Procedure: COLONOSCOPY; Surgeon: Emmanuel Daniel MD; Location: [facility] MEDICAL PROCEDURE UNIT COLONOSCOPY N/A 01/05/2019 Procedure: COLONOSCOPY; Surgeon: Emmanuel Daniel MD; Location: [facility] MEDICAL PROCEDURE UNIT EGD 12/24/2017 HARDWARE [...] Procedure: EGD; Surgeon: Emmanuel Daniel MD; Location: [facility] MEDICAL PROCEDURE UNIT UPPER GASTROINTESTINAL ENDOSCOPY N/A 01/05/2019 Procedure: EGD; Surgeon: Emmanuel Daniel MD; Location: [facility] MEDICAL PROCEDURE UNIT URETEROSCOPY Left 04/13/2019 Procedure: Cystoscopy, Left ureteroscopy with laser lithotripsy, Left ureteral stent place ment; Surgeon: Matthew Uriarte MD; Location: [facility] MAIN OR VASECTOMY Social History Socioeconomic [...] NEEDED FOR CHEST PAIN 250 tablet 0 [place]-3 Fatty Acids (SALMON OIL-1000 PO) CAPS, one capsule by mouth daily twice daily ondansetron (ZOFRAN ODT) 4 mg disintegrating tablet Take 4 mg by mouth every 8 hours as needed for Nausea. ONE TOUCH DELICA LANCETS [facility] Check glucose as needed for hypoglycemia 100 [...] PLT 169 06/02/2019 No results found for: [id number] No results found for: FOLATE No results [...] Co multiple ER visits Going again to [facility] tomorrow Already followed by GI Co in [...] dollars a month. We will defer to [facility], perhaps to have some sort of a [...] | 05/01/ | Appointment | Radiology | [place]iv[place], | | | 2019 | | | PARISA Vernon [address] | | | | | | [place], | | | | | | [place] [address] | | | | | | [phone] | | | | | | | | +--------+ + + + + | 05/01/ | Procedure | Cardiology | | | 2019 | visit | | | | +--------+ + + + + | 05/01/ | Office | Cardiology | Silvia, | | | 2019 | Visit | | PARISA Vernon W | | | | | | [place], | | | | | | [place] [address] | | | | | | [phone] | | | | | | | | +--------+ + + + + | 05/21/ | Implant | Cardiology | Daljit Singletary, | Remote Device | | 2019 | Monitor | | [address] [place] | Interrogation | | | | | [place], | (Primary Dx); | | | | | [place] [address] | Pacemaker; | | | | | [phone] | Sinoatrial node | | | | [...]
--- OUTSIDE RECORDS SUMMARY | ~2020-04-13 | XMS | Encounter Summary ---
Demographics + + + | Address | [address] | | | [place] [address] | + + + | Home Phone [...] + +------+ + | Care X Ray Equipment Servicer Name | Role | Phone | [...] [place] | | | | | | [address] | [address] Phone: | | | | | | Phone: | [phone] | | | | | | [phone] | Fax: | | | | | | Fax: | [phone] | | | | | | [phone] | | +--------+ + + + + + Reason for Visit + + + | Reason | Comments | + + + | Medicare Wellness | | + + + Encounter Details +--------+---------+ + + + | Date | Type | Department | Care Team | Description | +--------+---------+ + + + | 07/25/ | Office | [facility] | Michael Amanda, | Preventative health | | 2014 | Visit | [facility] [place] | DO [address] | care (Primary Dx); | | | | [address] | [place] | Cannabis abuse, | | | | [place] | [address] | daily use; Urinary | | | | [address] | | frequency; | | | | [phone] | | Incontinence; | | | | [...] needed for Chest pain. 25 tablet 12 [place]-3 Fatty Acids (SALMON OIL-1000 PO) CAPS, one capsule by mouth daily twice daily ONE TOUCH DELICA LANCETS [facility] Check glucose as needed [...] as Nurse Practitioner (Cardiology) FENG Chou (Physician Hide Shaker) Current Medicare Suppliers: [facility] [place], [place] - [address] [place] [address] [facility] - [place] - [address] [place] [address] HEALTH RISK ASSESSMENT: : The patient or [...] following health maintenance items are reviewed in [facility] and correct as of today: Health Maintenance [...] no kevin in the usual sections in [place]. documented in this en counter Plan of Treatment +--------+ + + + + | Date | Type | Specialty | Care Team | Description | +--------+ + + + + | 05/01/ | Appointment | Radiology | Silvia, | | | 2019 | | | PARISA Vernon [address] | | | | | | [place], | | | | | | [place] [address] | | | | | | [phone] | | | | | | | | +--------+ + + + + | 05/01/ | Procedure | Cardiology | | | | 2019 | visit | | | | +--------+ + + + + | 05/01/ | Office | Cardiology | Silvia, | | | 2019 | Visit | | PARISA Vernon W | | | | | | [place], | | | | | | [place] [address] | | | | | | [phone] | | | | | | | | +--------+ + + + + | 05/21/ | Implant | Cardiology | Daljit Singletary, | Remote Device | 2019 | Monitor | | MD [place] | Interrogation | | | | | [place], | (Primary Dx); | | | | | [place] [address] | Pacemaker; | | | | | [phone] | Sinoatrial node | | | | [...] Primary Routine general medical examination at a [facility] | | care facility | + + [...]
--- OUTSIDE RECORDS SUMMARY | ~2020-04-13 | XMS | Encounter Summary ---
Demographics + + + | Address | [address] [place] [address] [place] | | | [place] [address] | + + + | Home Phone | | + + + | Preferred Language | Unknown | + + + | Marital Status | | + + + | Adventist Affiliation | Unknown | + + + [...] [place] | | | | | [address] | | + + + + + Care Team Providers + +------+ + | Care Experienced Truck Driver Name | Role | Phone [...] as of this encounter Progress Notes Interface, Web Ui Developer In - 07/19/2006 3:05 AM PDTCLINIC DATE: 06/13/2002 ORTHOPEDIC CLINIC REFERRING PHYSICIAN: Eugene Vera D.O. [address] [place] [address] Mr. Sanchez is a new patient. He [...] proceed. Martell Allen M.D. ELIZABETH / KATTY [id number] / [id number] / [id number] / [id number] cc: Eugene Vera D.O. [address] [place] [id number] signed by Interface, Web Ui Developer In at 07/19/2006 3:0 5 AM PDTdocumented in this encounter Plan of Treatment Not on filedocumented as of this encounter Visit Diagnoses Not on filedocumented in this encounter
--- OUTSIDE RECORDS SUMMARY | ~2020-04-13 | XMS | Encounter Summary ---
Demographics + + + | Address | [address] | | | [place] [address] | + + + | Home Phone [...] Providers + +------+ + | Care Head Banquet Waiter/Waitress Name | Role | Phone | + [...] [address] | | | | | [address] | [place] | | | | | [phone] | [address] | | | | | | | [...] W | | | | | | [place], | | | | | | [place] [address] | | | | | | [phone] | | | | | | | | +--------+ + + + + | 05/01/ | Procedure | Cardiology | | | | 2019 | visit | | | | +--------+ + + + + | 05/01/ | Office | Cardiology | Silvia, | | | 2019 | Visit | | PARISA Vernon W | | | | | | [place], | | | | | | [place] [address] | | | | | | [phone] | | | | | | | | +--------+ + + + + | 05/21/ | Implant | Cardiology | Daljit Singletary, | Remote Device | 2019 | Monitor | | MD [address] | Interrogation | | | | | [place], | (Primary Dx); | | | | | [place] [address] | Pacemaker; | | | | | [phone] | Sinoatrial node | | | | | | dysfunction (HCC) | | | | | | with symptomatic | | | | | | bradycardia | +--------+ + + + + documented as of this encounter Visit Diagnoses Not on filedocumented in this encounter"
--- OUTSIDE RECORDS SUMMARY | ~2020-04-13 | XMS | Encounter Summary ---
Demographics + + + | Address | [address] | | | [place] [address] | + + + | Home Phone [...] Team Providers + +------+ + | Care Navy Fighter Pilot Name | Role | Phone | [...] | | | | CENTER [address] | [address] [place] | | | | | [place], [place] | [place] [address] | | | | | [address] | [phone] | | | | | [phone] | | | +--------+ + + + [...] sent through Care Everywhere.Diarrhea, Unkno wn Cause (Amharic)documented in this encounter Medications at Time of [...] + + + +---------+ + + | Gordon-3 Fatty | CAPS, one capsule by | [...] | | | | | | | [place] coronary | | | | | | | artery of [place] | | | | | | | [...] | | | | | | [place] [address] | | | | | | [phone] | | | | | | | [...] | | | | | | [place] [address] | | | | | | [phone] | | | | | | | | +--------+ + + + + | 05/21/ | Implant | Cardiology | Daljit Singletary, | Remote Device | | 2020 | Monitor | | MD [facility] | Interrogation | | | | | [place], | (Primary Dx); | | | | | [place] [address] | Pacemaker; | | | | | [phone] | Sinoatrial node | | | | [...] W?MRN: | | | | | | [id number] | | | [id number] | | | riteri | | | [...] | | | St. | | | Erin | | | y | | | [...] | | | St. | | | Erin | | | y | | | [...] | | | St. | | | Erin | | | y H. | | [...] | | | St. | | | Erin | | | y H. | | [...] | | | M.D. | | | Options Advisor | | | al | | | [...] | | | ent/60 | | | [phone] | | | [phone] | | | [...] [address] | [place] | [phone] | | [facility] | | [address] | | | - LABORATORY | | [...] [address] | [place] | [phone] | | [facility] | | [address] | | | - LABORATORY | | [...] [address] | [place] | [phone] | | [facility] | | [address] | | | - LABORATORY | | [...] + | [facility] | [address] | [place] | [phone] | | [facility] | | [address] | | | - LABORATORY | | [...] [address] | [place] | [phone] | | [facility] | | [address] | | | - LABORATORY | | [...] | | | | | | [facility] | | | | | | MEDICAL [...] | mL/min/1.73m2 | [place] | | | JORDANIAN | RATE,ESTIMATED | | MEDICAL | | | | mL/min/1.09j1Tchx than | | CENTER - | | [...] + + + + + + | Albumin/Sanede | 2.0 (H) | 0.8 - 1.9 [...] + | [facility] | [address] | [place] | [phone] | | [facility] | | [address] | | | - LABORATORY | | [...] [address] | [place] | [phone] | | [facility] | | [address] | | | - LABORATORY | | [...] - 1.030 | [facility] | | | [place], | | | [facility] | | [...] [address] | [place] | [phone] | | [facility] | | [address] | | | - LABORATORY | | [...]
--- OUTSIDE RECORDS SUMMARY | ~2020-04-13 | XMS | Encounter Summary ---
Demographics + + + | Address | [address] | | | [place] [address] | + + + | Home Phone [...] Providers + +------+ + | Care Battery Installer Name | Role | Phone | [...] + + | 01/25/ | Office | [facility] | Daljit Singletary, | Other chest pain | | 2012 | Visit | CARDIOLOGY [address] | [address] | (Primary Dx); PVC's | | | | [address] [place], | [place], | (premature | | | | [place] [address] | [place] [address] | ventricular | | | | [phone] | [phone] | contractions) | | | | | [...] note, lorraine painting has appointment to see senior procurement specialist for PVCs ablations consultation on January [...] tablet Take 1,000 mg by mouth Daily. Hyde-3 Fatty Acids (SALMON OIL-1000 PO) CAPS, one [...] tablet Take 1,000 mg by mouth Daily. Hyde-3 Fatty Acids (SALMON OIL-1000 PO) CAPS, one [...] | | | | | | [place] [address] | | | | | | [phone] | | | | | | | | +--------+ + + + + | 05/01/ | Procedure | Cardiology | | | | 2019 | visit | | | | +--------+ + + + + | 05/01/ | Office | Cardiology | Silvia | | | 2019 | Visit | | Janeen, ADVERTISING PROJECT MANAGER [address] | | | | | | [place], | | | | | | [place] [address] | | | | | | [phone] | | | | | | | | +--------+ + + + + | 05/21/ | Implant | Cardiology | Daljit Singletary, | Remote Device | | 2020 | Monitor | | [address] | Interrogation | | | | | [place], | (Primary Dx); | | | | | [place] [address] | Pacemaker; | | | | | [phone] | Sinoatrial node | | | | | | dysfunction ([facility]) | | | | | | with [...]
--- OUTSIDE RECORDS SUMMARY | ~2020-04-13 | XMS | Encounter Summary ---
Demographics + + + | Address | [address] | | | [place] [address] | + + + | Home Phone [...] Team Providers + +------+ + | Care Drone Software Development Engineer Name | Role | [...] + + | 08/17/ | Office | [facility] | Michael Amanda, | Testosterone | | 2012 | Visit | [facility] [place] | DO [address] | deficiency (Primary | | | | [address] | [place] MD | Dx); Hypoglycemia; | | | | [place] | [address] | Herpes | | | | [address] | | | | | | [phone] | | | +--------+---------+ + + + [...] lowering his testosterone levels. He seen at [facility]. He was prescribed OxyContin and Dilaudid. The [...] erectile dy sfunction. He was seen at [facility] yesterday and they prescribed him testostero ne cypionate injections. He's not sure when they wanted him to come back for labs. He has a followup appointment with [facility] in one month. Patient complains of history [...] HTN (hypertension); Hypercholesterolemia; Bipolar 1 disorder; Insomnia; Medic Technician jennifer neck pain; Depression; Hyperlipidemia; BIPOLAR [...] per orders. This note is dictated using [employer] voice recognition software. This note was dictated [...] W | | | | | | [place], | | | | | | [place] [address] | | | | | | [phone] | | | | | | | | +--------+ + + + + | 05/01/ | Procedure | Cardiology | | | | 2019 | visit | | | | +--------+ + + + + | 05/01/ | Office | Cardiology | Silvia, | | | 2019 | Visit | | PARISA Vernon [address] | | | | | | [place], | | | | | | [place] [address] | | | | | | [phone] | | | | | | | | +--------+ + + + + | 05/21/ | Implant | Cardiology | Daljit Singletary, | Remote Device | | 2020 | Monitor | | [facility] | Interrogation | | | | | [place], | (Primary Dx); | | | | | [place] [address] | Pacemaker; | | | | | [phone] | Sinoatrial node | | | | [...]
--- OUTSIDE RECORDS SUMMARY | ~2020-04-13 | XMS | Encounter Summary ---
Demographics + + + | Address | [address] | | | [place] [address] | + + + | Home Phone [...] Providers + +------+ + | Care Proposal Writer Name | Role | Phone | [...] [address] | | | | | | [place], [place] | (Fax) | | | | | [address] | | | | | | [phone] | | | +--------+ + + + [...] | | | | | | [place] [address] | | | | | | [phone] | | | | | | | | +--------+ + + + + | 05/01/ | Procedure | Cardiology | | | | 2019 | visit | | | | +--------+ + + + + | 05/01/ | Office | Cardiology | Silvia, | | | 2019 | Visit | | PARISA Vernon [address] | | | | | | [place], | | | | | | [place] [address] | | | | | | [phone] | | | | | | | | +--------+ + + + + | 05/21/ | Implant | Cardiology | Daljit Singletary, | Remote Device | | 2019 | Monitor | | [address] [place] | Interrogation | | | | | [place], | (Primary Dx); | | | | | [place] [address] | Pacemaker; | | | | | [phone] | Sinoatrial node | | | | | | dysfunction (HCC) | | | | | | with symptomatic | | | | | | bradycardia | +--------+ + + + + documented as of this encounter Visit Diagnoses Not on filedocumented in this encounter"
--- OUTSIDE RECORDS SUMMARY | ~2020-04-13 | XMS | Encounter Summary ---
Demographics + + + | Address | [address] | | | [place] [address] | + + + | Home Phone [...] Team Providers + +------+ + | Care Phlebotomy Lab Assistant Name | Role | Phone | [...] 2019 | | GASTROENTEROLOGY | [address], [place] | | | | | [address] [place] | [address] [place], [place] | | | | | [address] [place], [place] | [address] | | | | | [address] | | | | | | [phone] | | | +--------+ + + + [...] | | | | | | [place] [address] | | | | | | [phone] | | | | | | | | +--------+ + + + + | 05/01/ | Procedure | Cardiology | | | | 2019 | visit | | | | +--------+ + + + + | 05/01/ | Office | Cardiology | Silvia, | | | 2019 | Visit | | [address] [address] | | | | | | [place], | | | | | | [place] [address] | | | | | | [phone] | | | | | | | | +--------+ + + + + | 05/21/ | Implant | Cardiology | Daljit Singletary, | Remote Device | 2019 | Monitor | | MD [address] | Interrogation | | | | | [place], | (Primary Dx); | | | | | [place] [address] | Pacemaker; | | | | | [phone] | Sinoatrial node | | | | | | dysfunction (HCC) | | | | | | with symptomatic | | | | | | bradycardia | +--------+ + + + + documented as of this encounter Visit Diagnoses Not on filedocumented in this encounter"
--- OUTSIDE RECORDS SUMMARY | ~2020-04-13 | XMS | Encounter Summary ---
Demographics + + + | Address | [address] | | | [place] [address] | + + + | Home Phone [...] Providers + +------+ + | Care Pile Header Name | Role | Phone | + [...] [place] | | | | | [address] [place], [place] | [place] [address] | | | | | [address] | [phone] | | | | | [phone] | | | +--------+ + + + [...] W | | | | | | [place], | | | | | | [place] [address] | | | | | | [phone] | | | | | | | | +--------+ + + + + | 05/01/ | Procedure | Cardiology | | | | 2019 | visit | | | | +--------+ + + + + | 05/01/ | Office | Cardiology | Silvia, | | | 2019 | Visit | | PARISA [place] [address] | | | | | | [place], | | | | | | [place] [address] | | | | | | [phone] | | | | | | | | +--------+ + + + + | 05/21/ | Implant | Cardiology | Daljit Singletary, | Remote Device | | 2019 | Monitor | | [address] | Interrogation | | | | | [place], | (Primary Dx); | | | | | [place] [address] | Pacemaker; | | | | | [phone] | Sinoatrial node | | | | [...]
--- OUTSIDE RECORDS SUMMARY | ~2020-04-13 | XMS | Encounter Summary ---
Demographics + + + | Address | [address] | | | [place] [address] | + + + | Home Phone [...] Team Providers + +------+ + | Care Funding Coordinator Name | Role | Phone | [...] + | 11/26/ | Telephone | [facility] | [place], | Appointment (Needs | | 2017 | | CARDIOLOGY [address] | [place] [address] | rescheduled) | | | | [place], | [place], | | | | | [place] [address] | [place] [address] | | | | | [phone] | | | | | | | [...] | | | | | | [place] [address] | | | | | | [phone] | | | | | | | | +--------+ + + + + | 05/01/ | Procedure | Cardiology | | | | 2020 | visit | | | | +--------+ + + + + | 05/01/ | Office | Cardiology | [place]via, | | | 2019 | Visit | | PARISA [place] [address] | | | | | | [place], | | | | | | [place] [address] | | | | | | [phone] | | | | | | | | +--------+ + + + + | 05/21/ | Implant | Cardiology | Daljit Singletary, | Remote Device | 2019 | Monitor | | [address] | Interrogation | | | | | [place], | (Primary Dx); | | | | | [place] [address] | Pacemaker; | | | | | [phone] | Sinoatrial node | | | | | | dysfunction (HCC) | | | | | | with symptomatic | | | | | | bradycardia | +--------+ + + + + documented as of this encounter Visit Diagnoses Not on filedocumented in this encounter"
--- OUTSIDE RECORDS SUMMARY | ~2020-04-13 | XMS | Encounter Summary ---
Demographics + + + | Address | [address] | | | [place] [address] | + + + | Home Phone [...] Team Providers + +------+ + | Care Race Starter Name | Role | Phone | + +------+ + | Kirk French MD | PCP | | + +------+ + Encounter Details +--------+ + + + + | Date | Type | Department | Care Team | Description | +--------+ + + + + | 01/05/ | Orders Only | [facility] | Emmanuel Daniel MD | | | 2019 | | [facility] | [address], [place] | | | | | PATHOLOGY [address] | [address] [place], [place] | | | | | BLVD [place], [place] | [address] | | | | | [address] | | | | | | [phone] | | | +--------+ + + + [...] | | | | | | [place] [address] | | | | | | [phone] | | | | | | | | +--------+ + + + + | 05/01/ | Procedure | Cardiology | | | | 2019 | visit | | | | +--------+ + + + + | 05/01/ | Office | Cardiology | Silvia, | | | 2019 | Visit | | [place]ISA [place] [address] | | | | | | [place], | | | | | | [place] [address] | | | | | | [phone] | | | | | | | | +--------+ + + + + | 05/21/ | Implant | Cardiology | Daljit Singletary, | Remote Device | | 2019 | Monitor | | [facility] | Interrogation | | | | | [place], | (Primary Dx); | | | | | [place] [address] | Pacemaker; | | | | | [phone] | Sinoatrial node | | | | [...] | | | (atherosclerotic heart disease of [place] coronary artery without | | | angina [...] or | | | microscopic colitis. BES:[facility]:C3NR GROSS DESCRIPTION: A. The | | | specimen, labeled "[place], duodenal biopsy" is received in formalin | | | and consists of seven 0.1-0.5 cm lin fragments. Entirely submitted in | | | (A1). B. The specimen, labeled "[place], right colon" is received | | | in formalin and consists of six 0.2-0.3 cm lin fragments. Entirely | | | submitted in (B1). C. The specimen, labeled "[place], left colon" | | | is received in formalin and consists of six 0.2-0.3 cm lin-pink | | | fragments. Entirely submitted in (C1). am:AMB:rds PERFORMING | | | LABORATORY: The technical component was performed by [facility] | | | [email or web address], [address] [place] [address] (Boat Outboard Engine Mechanic: | | | Kailey Stafford MD; CLIA# [id number]). Professional interpretation was | | | performed by [facility], [facility] | | | [place] [address] (Boat Outboard Engine Mechanic: Ishaan | | | Anthony Dao; CLIA#: [id number]). Diagnostician: Ishaan Bay MD Pathologist Electronically Signed [...]
--- OUTSIDE RECORDS SUMMARY | ~2020-04-13 | XMS | Encounter Summary ---
Demographics + + + | Address | [address] | | | [place] [address] | + + + | Home Phone [...] Team Providers + +------+ + | Care Hog Sawyer Name | Role | Phone | + [...] | | | | | region | [address] | | | | | | Procedures | [address] | | | | | | CT | [place], [place] | | | | | | Myelography | [address] | | | | | | Lumbar Spine | Phone: | | | | | | | [phone] | | | | | | | Fax: | | | | | | | [phone] | | +--------+--------+ + + + + [...] | | | | | region | [address] | | | | | | Procedures | [address] | | | | | | CT | [place], [place] | | | | | | Myelography | [address] | | | | | | Lumbar Spine | Phone: | | | | | | | [phone] | | | | | | | Fax: | | | | | | | [phone] | | +--------+--------+ + + + + Encounter Details +--------+ + + + + | Date | Type | Department | Care Team | Description | +--------+ + + + + | 04/07/ | Hospital | [facility] | Pia Akhtar | Spinal stenosis, | | 2016 | Encounter | MED CTR [address] | MD [address] | lumbar region | | | | [place], | [address] | | | | | [place] [address] | [place] [address] | | | | | [phone] | [phone] | | | | | | | [...] + + + +---------+ + + | Onley-3 Fatty | CAPS, one capsule by | [...] W | | | | | | [place], | | | | | | [place] [address] | | | | | | [phone] | | | | | | | | +--------+ + + + + | 05/01/ | Procedure | Cardiology | | | | 2019 | visit | | | | +--------+ + + + + | 05/01/ | Office | Cardiology | Silvia, | | | 2019 | Visit | | PARISA [place] W | | | | | | [place], | | | | | | [place] [address] | | | | | | [phone] | | | | | | | | +--------+ + + + + | 05/21/ | Implant | Cardiology | Daljit Singletary, | Remote Device | | 2019 | Monitor | | [address] [place] | Interrogation | | | | | [place], | (Primary Dx); | | | | | [place] [address] | Pacemaker; | | | | | [phone] | Sinoatrial node | | | | [...] + + | Performing | Address | City/State/[facility] | Phone Number | | Organization | | | | + +---------+ + + | [facility] | | | | + +---------+ + + documented in this encounter Visit Diagnoses + + | Diagnosis | + + | Spinal stenosis, lumbar region | + + documented in this encounter"
--- OUTSIDE RECORDS SUMMARY | ~2020-04-13 | XMS | Encounter Summary ---
Demographics + + + | Address | [address] | | | [place] [address] | + + + | Home Phone [...] Team Providers + +------+ + | Care Ruling Technician Name | Role | Phone | [...] [address] | | | | | [place], | [place], | | | | | [place] [address] | [place] [address] | | | | | [phone] | [phone] | | | | | | | [...] W | | | | | | [place], | | | | | | [place] [address] | | | | | | [phone] | | | | | | | | +--------+ + + + + | 05/01/ | Procedure | Cardiology | | | | 2019 | visit | | | | +--------+ + + + + | 05/01/ | Office | Cardiology | Silvia, | | | 2019 | Visit | | PARISA Vernon W | | | | | | [place], | | | | | | [place] [address] | | | | | | [phone] | | | | | | | | +--------+ + + + + | 05/21/ | Implant | Cardiology | Daljit Singletary, | Remote Device | | 2019 | Monitor | | [address] [place] | Interrogation | | | | | [address] [place], | (Primary Dx); | | | | | [place] [address] | Pacemaker; | | | | | [phone] | Sinoatrial node | | | | | | dysfunction (HCC) | | | | | | with symptomatic | | | | | | bradycardia | +--------+ + + + + documented as of this encounter Visit Diagnoses Not on filedocumented in this encounter"
--- OUTSIDE RECORDS SUMMARY | ~2020-04-13 | XMS | Encounter Summary ---
Demographics + + + | Address | [address] | | | [place] [address] | + + + | Home Phone [...] Team Providers + +------+ + | Care Day Care Home Provider Name | Role | Phone | + +------+ + | Kirk French MD | PCP | | + +------+ + Encounter Details +--------+---------+ + + + | Date | Type | Department | Care Team | Description | +--------+---------+ + + + | 01/25/ | Surgery | [facility] | Daljit Singletary, | CV LHC | | 2019 | | MED CTR CV INTRA OP | MD [address] | | | | | [address] | [place] [place], | | | | | [place] | [place] [address] | | | | | [address] | [phone] | | | | | [phone] | | | +--------+---------+ + + + [...] by your healthcare provider Date Last Reviewed: 09/22/201619992547-8046 [employer]. [address] [place] [address]. All righ ts reserved. This information is [...] + + + +---------+ + + | [place]-3 Fatty | CAPS, one capsule by | [...] W | | | | | | [place], | | | | | | [place] [address] | | | | | | [phone] | | | | | | | | +--------+ + + + + | 05/01/ | Procedure | Cardiology | | | | 2019 | visit | | | | +--------+ + + + + | 05/01/ | Office | Cardiology | Silvia, | | | 2019 | Visit | | PARISA Vernon W | | | | | | [place], | | | | | | [place] [address] | | | | | | [phone] | | | | | | | | +--------+ + + + + | 05/21/ | Implant | Cardiology | Daljit Singletary, | Remote Device | | 2019 | Monitor | | MD [address] [place] | Interrogation | | | | | [place], | (Primary Dx); | | | | | [place] [address] | Pacemaker; | | | | | [phone] | Sinoatrial node | | | | [...] (1960) MEDICAL RECORD NUMBER: | | | [id number] OF PROCEDURE: 01/25/2019 JUICE PACKAGING MACHINES SETTER: Daljit | | | MD [facility] PROCEDURES [...] Sanchez, (1960) | | OF PROCEDURE: 01/25/2019PRIMARY CONSTRUCTION CONTROLLER: Daljit Singletary MD PROCEDURES | | PERFORMED:Coronary [...] | Aggressive medical management. | | at 9:33PRATRI[facility]ARRUSRY CARE PROVIDER:Kirk French MDFor additional detail as [...] or lesion | | type, unspecified whether lower [place] or transplanted heart | + + documented [...]
--- OUTSIDE RECORDS SUMMARY | ~2020-04-13 | XMS | Encounter Summary ---
Demographics + + + | Address | [address] | | | [place] [address] | + + + | Home Phone [...] Providers + +------+ + | Care Head Still Operator Name | Role | Phone | [...] [place] | | | | | | [address] | | | | | | [phone] | | | | | | | [...] | | | | | | [place] [address] | | | | | | [phone] | | | | | | | | +--------+ + + + + | 05/01/ | Procedure | Cardiology | | | | 2019 | visit | | | | +--------+ + + + + | 05/01/ | Office | Cardiology | Silvia, | | | 2019 | Visit | | [address] [address] | | | | | | [place], | | | | | | [place] [address] | | | | | | [phone] | | | | | | | | +--------+ + + + + | 05/21/ | Implant | Cardiology | Daljit Singletary, | Remote Device | | 2019 | Monitor | | MD [place] | Interrogation | | | | | [place], | (Primary Dx); | | | | | [place] [address] | Pacemaker; | | | | | [phone] | Sinoatrial node | | | | | | dysfunction (HCC) | | | | | | with symptomatic | | | | | | bradycardia | +--------+ + + + + documented as of this encounter Visit Diagnoses Not on filedocumented in this encounter"
--- OUTSIDE RECORDS SUMMARY | ~2020-04-13 | XMS | Encounter Summary ---
Demographics + + + | Address | [address] | | | [place] [address] | + + + | Home Phone [...] Team Providers + +------+ + | Care Ring Stamper Name | Role | Phone | + [...] W | | | | | [place], | [place], | | | | | [place] [address] | [place] [address] | | | | | [phone] | [phone] | | | | | | | [...] | | | | | | [place] [address] | | | | | | [phone] | | | | | | | | +--------+ + + + + | 05/01/ | Procedure | Cardiology | | | | 2019 | visit | | | | +--------+ + + + + | 05/01/ | Office | Cardiology | Silvia, | | | 2019 | Visit | | PAR[place] [address] | | | | | | [place], | | | | | | [place] [address] | | | | | | [phone] | | | | | | | | +--------+ + + + + | 05/21/ | Implant | Cardiology | Daljit Singletary, | Remote Device | 2019 | Monitor | | [address] [place] | Interrogation | | | | | [address], | (Primary Dx); | | | | | [place] [address] | Pacemaker; | | | | | [phone] | Sinoatrial node | | | | [...] | [address] | [place] | | | [facility] | | [address] | | | - LABORATORY [...] | | | LAB | | | Fij[place], | | | | | | External [...] | [address] | [place] | | | [facility] | | [address] | | | - LABORATORY [...]
--- OUTSIDE RECORDS SUMMARY | ~2020-04-13 | XMS | Encounter Summary ---
Demographics + + + | Address | [address] | | | [place] [address] | + + + | Home Phone [...] Providers + +------+ + | Care Customer Service Leader Name | Role | Phone | + +------+ + | Kirk French MD | PCP | | + +------+ + Encounter Details +--------+ + + + + | Date | Type | Department | Care Team | Description | +--------+ + + + + | 07/21/ | Hospital | [facility] | Daljit Singletary, | | | 2018 | Encounter | MED CTR NUCLEAR | MD [address] | | | | | MEDICINE [address] | [address] [place], | | | | | [place] | [place] [address] | | | | | [place] [address] | [phone] | | | | | [phone] | | | +--------+ + + + [...] + + + +---------+ + + | Tolleson-3 Fatty | CAPS, one capsule by | [...] [address] | | | | | | [address] [place], | | | | | | [place] [address] | | | | | | [phone] | | | | | | | | +--------+ + + + + | 05/01/ | Procedure | Cardiology | | | | 2019 | visit | | | | +--------+ + + + + | 05/01/ | Office | Cardiology | Silvia, | | | 2019 | Visit | | PARISA Vernon [address] | | | | | | [address] [place], | | | | | | [place] [address] | | | | | | [phone] | | | | | | | | +--------+ + + + + | 05/21/ Implant | Cardiology | Daljit Singletary, | Remote Device | | 2019 | Monitor | | [address] [facility] | Interrogation | | | | | [place], | (Primary Dx); | | | | | [place] [address] | Pacemaker; | | | | | [phone] | Sinoatrial node | | | | [...] | | | | | | Starting [facility] 07/21/18 at 1224, For | | | | | | | 1 dose, Nuclear Medicine | | | | | | + +--------+ + +------+------+ +---+---+ | | | +---+---+ documented in this encounter"
--- OUTSIDE RECORDS SUMMARY | ~2020-04-13 | XMS | Encounter Summary ---
Demographics + + + | Address | [address] | | | [place] [address] | + + + | Home Phone [...] Team Providers + +------+ + | Care Rebrander Name | Role | Phone | + [...] Provider Unknown | | | | | [place], [place] | [phone] | | | | | [address] | | | | | | [phone] | | | +--------+ + + + [...] + + + +---------+ + + | Sanderson-3 Fatty | CAPS, one capsule by | [...] | | | | | | [place] [address] | | | | | | [phone] | | | | | | | | +--------+ + + + + | 05/01/ | Procedure | Cardiology | | | | 2019 | visit | | | | +--------+ + + + + | 05/01/ | Office | Cardiology | Silvia, | | | 2019 | Visit | | PARISA [address] | | | | | | [place], | | | | | | [place] [address] | | | | | | [phone] | | | | | | | | +--------+ + + + + | 05/21/ | Implant | Cardiology | Daljit Singletary, | Remote Device | 2019 | Monitor | | [address] | Interrogation | | | | | [place], | (Primary Dx); | | | | | [place] [address] | Pacemaker; | | | | | [phone] | Sinoatrial node | | | | [...]
--- OUTSIDE RECORDS SUMMARY | ~2020-04-13 | XMS | Encounter Summary ---
Demographics + + + | Address | [address] | | | [place] [address] | + + + | Home Phone [...] Team Providers + +------+ + | Care Crime Lab Analyst Name | Role | Phone | [...] + + | 06/04/ | Hospital | [facility] | Sariah, | Cervical spinal | | 2016 | Encounter | MED CTR XRAY [address] | [place], [address] | stenosis | | | | [place] | [address] | | | | | [place] [address] | [place] [address] | | | | | [phone] | [phone] | | | | | | | [...] + + + +---------+ + + | [place]-3 Fatty | CAPS, one capsule by | [...] | | | | | | [place] [address] | | | | | | [phone] | | | | | | | | +--------+ + + + + | 05/01/ | Procedure | Cardiology | | | | 2019 | visit | | | | +--------+ + + + + | 05/01/ | Office | Cardiology | Silvia, | | | 2019 | Visit | | PARISA Vernon [address] | | | | | | [place], | | | | | | [place] [address] | | | | | | [phone] | | | | | | | | +--------+ + + + + | 05/21/ | Implant | Cardiology | Daljit Singletary, | Remote Device | | 2019 | Monitor | | [address] [facility] | Interrogation | | | | | [place], | (Primary Dx); | | | | | [place] [address] | Pacemaker; | | | | | [phone] | Sinoatrial node | | | | [...] | | | | | thecal, Starting [facility] 06/04/16 at | | | | | [...]
--- OUTSIDE RECORDS SUMMARY | ~2020-04-13 | XMS | Encounter Summary ---
Demographics + + + | Address | [address] [place] [address] [address] LO[address]O | | | [place] [address] | + + + | Home Phone | | + + + | Preferred Language | Unknown | + + + | Marital Status | | + + + | Zoroastrianism Affiliation | Unknown | + + + [...] [place] | | | | | [address] | | + + + + + Care Team Providers + +------+ + | Care Accounts Executive Name | Role | Phone | [...] | | Bradycardia | | | | [place], [place] | | | | | | [address] | | | | | | [phone] | | | +--------+------+ + + + [...] | [facility] | | [facility] [address] | REGIONAL | | [place] [address] | LABORATORY | + + + + + + + + | Performing | Address | City/State/Zipcode | Phone Number | | Organization | | | | + + + + + | [facility] | [address] | [place] [address] | | | LABORATORY | | | [...] [facility] ([address]) | | | [facility] [address] | | | [place] [address] | | + + + + + + + + | Performing | Address | City/State/Zipcode | Phone Number | | Organization | | | | + + + + + | [facility] | [address] | [place] [address] | | | LABORATORY | | | [...] | | | DEPARTMENT | | | MALAYSIAN | | | OF | | | [...] DEPARTMENT OF | [address] | [place] [address] | | | PATHOLOGY | [address] | | | + + + + + documented in this encounter Visit Diagnoses + + | Diagnosis | + + | Chest pain Chest pain, unspecified | + + | Bradycardia Other specified cardiac dysrhythmias | + + documented in this encounter"
--- OUTSIDE RECORDS SUMMARY | ~2020-04-13 | XMS | Encounter Summary ---
Demographics + + + | Address | [address] | | | [place] [address] | + + + | Home Phone [...] Team Providers + +------+ + | Care Venereal Disease Investigator Name | Role | Phone | [...] + + | 09/09/ | Office | [facility] | Michael Amanda, | Hyperlipidemia; | | 2011 | Visit | [facility] [place] | DO [address] | Hypertension; | | | | [address] | [place] | Chronic pain | | | | [place] | [address] | syndrome; Neck pain, | | | | [address] | | chronic | | | | [phone] | | | +--------+---------+ + + + [...] damage history No ASHD (either angina; prior ME; prior CABG) No cardiac end organ damage [...] slowly cutting back. Pt was going through [facility] for [facility] medications prior to [...] W | | | | | | [place], | | | | | | [place] [address] | | | | | | [phone] | | | | | | | | +--------+ + + + + | 05/01/ | Procedure | Cardiology | | | | 2019 | visit | | | | +--------+ + + + + | 05/01/ | Office | Cardiology | Silvia, | | | 2019 | Visit | | PARISA Vernon [address] | | | | | | [place], | | | | | | [place] [address] | | | | | | [phone] | | | | | | | | +--------+ + + + + | 05/21/ | Implant | Cardiology | Daljit Singletary, | Remote Device | 2019 | Monitor | | [address] [place] | Interrogation | | | | | [place], | (Primary Dx); | | | | | [place] [address] | Pacemaker; | | | | | [phone] | Sinoatrial node | | | | [...]
--- OUTSIDE RECORDS SUMMARY | ~2020-04-13 | XMS | Encounter Summary ---
Demographics + + + | Address | [address] | | | [place] [address] | + + + | Home Phone [...] Providers + +------+ + | Care Marine Electronics Repairer Name | Role | Phone | + +------+ + PCP | Unavailable | + +------+ + Encounter Details +--------+ + + + + | Date | Type | Department | Care Team | Description | +--------+ + + + + | 02/21/ | [facility] | [facility] | Cristy Braun | | | 2008 | Encounter | MED CTR EMERGENCY | MD Ronald [address] | | | | | [place] [address] | [facility], | | | | | [place] | [place] [address] | | | | | [address] | [phone] | | | | | [phone] | | | +--------+ + + + [...] W | | | | | | [place], | | | | | | [place] [address] | | | | | | [phone] | | | | | | | | +--------+ + + + + | 05/01/ | Procedure | Cardiology | | | | 2019 | visit | | | | +--------+ + + + + | 05/01/ | Office | Cardiology | Silvia | | | 2019 | Visit | | PARISA Vernon [address] | | | | | | [place], | | | | | | [place] [address] | | | | | | [phone] | | | | | | | | +--------+ + + + + | 05/21/ | Implant | Cardiology | Daljit Singletary, | Remote Device | 2019 | Monitor | | [address] [place] | Interrogation | | | | | [place], | (Primary Dx); | | | | | [place] [address] | Pacemaker; | | | | | [phone] | Sinoatrial node | | | | | | dysfunction (HCC) | | | | | | with symptomatic | | | | | | bradycardia | +--------+ + + + + documented as of this encounter Visit Diagnoses Not on filedocumented in this encounter"
--- OUTSIDE RECORDS SUMMARY | ~2020-04-13 | XMS | Encounter Summary ---
Demographics + + + | Address | [address] [place] [address] [address] LOZ[address]O | | | [place] [address] | + + + | Home Phone [...] [place] | | | | | [address] | | + + + + + Care Team Providers + +------+ + | Care Director Recreation Center Name | Role | Phone | [...] | | 2019 | | Center at [facility] [address] | MD [address] | | | | | [address] | [facility] [place] | | | | | Mailcode: [place] | [address] | | | | | for Health and | [phone] | | | | | [facility] [address] | | | | | | [facility] [place] | | | | | | [address] | | | | | | [phone] | | | +--------+ + + + [...]
--- OUTSIDE RECORDS SUMMARY | ~2020-04-13 | XMS | Encounter Summary ---
Demographics + + + | Address | [address] | | | [place] [address] | + + + | Home Phone [...] Team Providers + +------+ + | Care Floral Department Specialist Name | Role | Phone | + +------+ + | Kirk French MD | PCP | | + +------+ + Encounter Details +--------+ + + + + | Date | Type | Department | Care Team | Description | +--------+ + + + + | 01/25/ | Hospital | [facility] | Daljit Singletary, | Stable angina | | 2019 | Encounter | MED CTR CV INTRA OP | MD [address] | pectoris (HCC) | | | | [address] | [address] [place], | | | | | [place] | [place] [address] | | | | | [address] | [phone] | | | | | [phone] | | | +--------+ + + + [...] as a collagen plugis used on the weirton triny site to close the site, you [...] by your healthcare provider Date Last Reviewed: 09/22/201619990132-9107 The [employer]. [address] [place] [address]. All righ ts reserved. This information is [...] + + +---------+ + + | [place]-3 Fatty | CAPS, one capsule [...] W | | | | | | [place], | | | | | | [place] [address] | | | | | | [phone] | | | | | | | | +--------+ + + + + | 05/01/ | Procedure | Cardiology | | | | 2019 | visit | | | | +--------+ + + + + | 05/01/ | Office | Cardiology | Silvia, | | | 2019 | Visit | | PARISA Vernon [address] | | | | | | [place], | | | | | | [place] [address] | | | | | | [phone] | | | | | | | | +--------+ + + + + | 05/21/ | Implant | Cardiology | Daljit Singletary, | Remote Device | | 2019 | Monitor | | MD [address] | Interrogation | | | | | [place], | (Primary Dx); | | | | | [place] [address] | Pacemaker; | | | | | [phone] | Sinoatrial node | | | | [...] (1960) MEDICAL RECORD NUMBER: | | | [id number] OF PROCEDURE: 01/25/2019 LEAF BLENDER: Daljit | | | MD Gemini PROCEDURES [...] Sanchez, (1960) | | OF PROCEDURE: 01/25/2019PRIMARY VICE PRESIDENT OF SALES: Daljit Singletary MD PROCEDURES | | PERFORMED:Coronary [...] | Aggressive medical management. | | at 9:33PR[facility]ITALRY CARE PROVIDER:Kirk French MDFor additional detail as [...]
--- OUTSIDE RECORDS SUMMARY | ~2020-04-13 | XMS | Encounter Summary ---
Demographics + + + | Address | [address] | | | [place] [address] | + + + | Home Phone [...] Team Providers + +------+ + | Care Hospitality Specialist Name | Role | Phone | [...] | | | | stenosis | L, ASSOCIATE PROFESSOR OF MEDIA ARTS [address] | | | | | | Procedures | [address] | | | | | | [address] | [address] | | | | | | Myelography | [place], [place] | | | | | | Cervical | [address] | | | | | | Spine | Phone: | | | | | | | [phone] | | | | | | | Fax: | | | | | | | [phone] | | +--------+--------+ + + + + [...] + + | 06/04/ | Hospital | [facility] | Sariah, | Cervical spinal | | 2016 | Encounter | MED CTR CT [address] | [place] ASSOCIATE PROFESSOR OF MEDIA ARTS [address] | stenosis | | | | [place], | [address] | | | | | [place] [address] | [place] [address] | | | | | [phone] | [phone] | | | | | | | [...] + + + +---------+ + + | [place]-3 Fatty | CAPS, one capsule by | [...] | | | | | | [place] [address] | | | | | | [phone] | | | | | | | | +--------+ + + + + | 05/01/ | Procedure | Cardiology | | | | 2019 | visit | | | | +--------+ + + + + | 05/01/ | Office | Cardiology | Silvia, | | | 2019 | Visit | | PARISA Vernon [address] | | | | | | [place], | | | | | | [place] [address] | | | | | | [phone] | | | | | | | | +--------+ + + + + | 05/21/ | Implant | Cardiology | Daljit Singletary, | Remote Device | | 2019 | Monitor | | [address] [place] | Interrogation | | | | | [place], | (Primary Dx); | | | | | [place] [address] | Pacemaker; | | | | | [phone] | Sinoatrial node | | | | [...]
--- OUTSIDE RECORDS SUMMARY | ~2020-04-13 | XMS | Clinical Summary ---
Demographics + + + | Address | [address] [place] [address] | | | [place] [address] | + + + | Home Phone [...] [place] | | | | | [address] | | + + + + + Care Team Providers + +------+ + | Care Ordnance Officer Name | Role | Phone | + +------+ + | Darion Holden DO | PCP | | + +------+ + Source Comments IVETTE is fully live on both EpicCare Ambulatory and EpicCare InPatient.[facility] Allergies + + + + + [...] + + | 01/29/ | Telephone | Gastroenterology | Bridgette Rios, | | | 2019 | | | MD | | +--------+ + + + + | 01/22/ | Transcribe | Gastroenterology | Transcribe | | | 2019 | Orders | | Renée, Yisel, | | | | | | MD | | +--------+ + + + + | 01/22/ | Telephone | Gastroenterology | Nurse, Trace | Care Coordination | | 2020 | | | | (capsule referral) | +--------+ + + + + from [...] | | | | | | | [address] | | + +--------+ +--------+ + +--------+ | [employer] | AARP | xxxxxxxxxx | 11/22/19 | [phone] | [address] | Indemn | | RETIRED PEOPLE | | | 10-Pre | 9 | [id number] | ity | | | | | sent | | [place] | | | | | | | | [address] | | + +--------+ +--------+ + +--------+ + +--------+ +--------+ + + | Guarantor Name | Accoun | Relation to | Date | Phone | Billing Address | | | t Type | Patient | of | | | | | | | | | | + +--------+ +--------+ + + | Moe Sanchez | Person | Self | [birth year] | [address] | | | cristo/Per | | 1960 | [phone] | [place] | | | roxanne | | | 8 (Home) | [address] | + +--------+ +--------+ + + Advance Directives + + + + + | Type | Date Recorded | Patient | Explanation | | | | Instructor Adjunct Surgical Technician | | + + + + + | Advance | | | | | Directives and | | | | | Living Will | | | | + + + + + | Power of | | | | | Central Services Tech | | | | + + + + +
--- OUTSIDE RECORDS SUMMARY | ~2020-04-13 | XMS | Encounter Summary ---
Demographics + + + | Address | [address] | | | [place] [address] | + + + | Home Phone [...] Providers + +------+ + | Care Hand Screen Printer Name | Role | Phone | + [...] | Palpitations | [address] | | | | | Procedures | [address] | [address] [place] | | | | | ECHO | [place], | [place], [place] | | | | | Complete | [place] [address] | [address] | | | | | | Phone: | Phone: | | | | | | [phone] | [phone] | | | | | | Fax: | Fax: | | | | | | [phone] | [phone] | +--------+--------+ + + + + Reason [...] + + | 12/21/ | Office | [facility] | Daljit Singletary, | Palpitations | | 2012 | Visit | CARDIOLOGY [address] | (Primary Dx); PVC | | | | [place], | [place], | (premature | | | | [place] [address] | [place] [address] | ventricular | | | | [phone] | [phone] | contraction) | | | | | [...] present himself to the emergency department at [facility] in [place], [place]. Today, patient is apprehensive of the [...] tablet Take 1,000 mg by mouth Daily. [place]-3 Fatty Acids (SALMON OIL-1000 PO) CAPS, one [...] tablet Take 1,000 mg by mouth Daily. [place]-3 Fatty Acids (SALMON OIL-1000 PO) CAPS, one [...] Sanchez Date: December 21, 2012 : 1960 Rag Shredder: PARISA Velazquez Device Clay Artisan: YellowBrcktronic Sense (mV) Impedance (?) Capture (V) Capture (ms) A Lead 4-5.6 423 1.5 0.09 RV Lead >31.36 539 2.0 0.09 LV Lead Battery Impedance (?): 301 Battery Voltage (V): 2.8 OH Interval (ms): 140 AR Interval (ms): 210 VA Conduction: Mode Switch Events: N/A % of time: -LICENSED MASTER SOCIAL WORKER: 0.6 AP-LICENSED MASTER SOCIAL WORKER: 1.3 -VS: 23.9 AP-VS: 74.2 LICENSED MASTER SOCIAL WORKER: Magnetic Rate: 85 LINDA: 65 LEAH: Current [...] himself to the emerge ncy department at [facility] in [place], [place]. EKG showed normal sinus rhythm with [...] I will d iscuss this option with explosive ordnance disposal specialist in [place]. 7. Followup in 2-4 weeks. Portions of this report were transcribed using voice recognition software. Every effort wa s made to ensure accuracy; however, inadvertent computerized electrotyper errors may be pre sent. documented in [...] | | | | | | [place] [address] | | | | | | [phone] | | | | | | | | +--------+ + + + + | 05/01/ | Procedure | Cardiology | | | | 2019 | visit | | | | +--------+ + + + + | 05/01/ | Office | Cardiology | Silvia, | | | 2019 | Visit | | PARISA Vernon [address] | | | | | | [place], | | | | | | [place] [address] | | | | | | [phone] | | | | | | | | +--------+ + + + + | 05/21/ | Implant | Cardiology | Daljit Singletary, | Remote Device | 2019 | Monitor | | [address] [place] [address] [place] | Interrogation | | | | | [place], | (Primary Dx); | | | | | [place] [address] | Pacemaker; | | | | | [phone] | Sinoatrial node | | | | [...] Performed At | + + + | [facility] | [facility] | | Department [address] [place] [address] | [facility] | | [ rep [address]] [ rep [facility] | | [facility]] Signed | - IMAGING | | | | | Patient Name: VICTOR HUGOMONAMOE W | | | Physician: MIGUELINA : 1960 Age: 52 Sex: M Unit | | | #: [id number] Exam Date: 12/30/12 Location: | | | [facility] [place] Report #: [id number] Page: | | | %(RAD)RES..mtdd.print.filter("pg") of %(RAD) | | | RES..mtdd.print.filter("tpg") | | | | | | Accession Number: [id number] | | | E C H O C A R D I O G R A P H Y R E P O R T | | | HEIGHT: 76" WEIGHT: 270# | | | ELEMENTARY ASSISTANT TEACHER: JAMEEL REFERRING DR: TIMMY DRAKE DR: | [...] | | | Transcribed Date/Time: 12/30/2012 16:34 Truss Designer: | | | <<Signature on File>> | | | Daljit | | | MD Gemini [facility] FASE01/02/13 0955 <Electronically signed by | | | Daljit Singletary MD, FACC, FACP, ADELINE, YEN> Daljit | | | MD CLEOPATRA Singletary 12/30/12 1608 Truss Designer: Jessica | | | Fxrcjddhkeybp46/08/13 1634 Daljit Singletary MD FACC | | | FASE | | + + + + + + + + | Performing | Address | City/State/Zipcode | Phone Number | | Organization | | | | + + + + + | [facility] | [address] | [place] | [phone] | | [facility] | | [address] | | | - IMAGING | | | | + + + + + documented in this encounter Visit Diagnoses + + | Diagnosis | + + | Palpitations - Primary | + + | PVC (premature ventricular contraction) Other premature beats | + + documented in this encounter
--- OUTSIDE RECORDS SUMMARY | ~2020-04-13 | XMS | Encounter Summary ---
Demographics + + + | Address | [address] | | | [place] [address] | + + + | Home Phone [...] Providers + +------+ + | Care Marine Plumber Name | Role | Phone | + [...] + + | 12/09/ | Telephone | [facility] | Emmanuel Daniel MD | Appointment (EGD, | | 2017 | | GASTROENTEROLOGY | [address] [place], [place] | colon Rescheduled to | | | | [address] [place] | [address] [place] | December 24 due to | | | | [address] [place] | [address] | illness) | | | | [address] | | | | | | [phone] | | | +--------+ + + + [...] | | | | | | [place] [address] | | | | | | [phone] | | | | | | | | +--------+ + + + + | 05/01/ | Procedure | Cardiology | | | | 2019 | visit | | | | +--------+ + + + + | 05/01/ | Office | Cardiology | Silvia, | | | 2019 | Visit | | PARISA Vernon [address] | | | | | | [place], | | | | | | [place] [address] | | | | | | [phone] | | | | | | | | +--------+ + + + + | 05/21/ | Implant | Cardiology | Daljit Singletary, | Remote Device | | 2019 | Monitor | | [address] [place] | Interrogation | | | | | [place], | (Primary Dx); | | | | | [place] [address] | Pacemaker; | | | | | [phone] | Sinoatrial node | | | | | | dysfunction (HCC) | | | | | | with symptomatic | | | | | | bradycardia | +--------+ + + + + documented as of this encounter Visit Diagnoses Not on filedocumented in this encounter"
--- OUTSIDE RECORDS SUMMARY | ~2020-04-13 | XMS | Encounter Summary ---
Demographics + + + | Address | [address] | | | [place] [address] | + + + | Home Phone [...] Team Providers + +------+ + | Care Caramel Cutter Machine Name | Role | Phone | [...] + + | 03/07/ | Office | [facility] | [place], | SINUS BRADYCARDIA | | 2013 | Visit | CARDIOLOGY [address] | [place] [address] | (Primary Dx); | | | | [place], | [place], | Syncope; Symptomatic | | | | [place] [address] | [place] [address] | PVCs; Pacemaker - | | | | [phone] | [phone] | Medtronic - [id number] | | | [...] Sanchez Date: March 07, 2014 : 1960 Mine Patrol: Kailey Pruitt RN Device Data Analyst:Medtronic Sense (mV) Impedance (?) Capture (V) Capture (ms) A Lead >5.60 402 1.500 0.09 RV Lead >31.36 522 2.00 0.09 LV Lead Battery Impedance (?): 528 Battery Voltage (V): 2.79 AZ Interval (ms): 147 AR Interval (ms): 217 VA Conduction: Mode Switch Events: 0 % of time: 0 -FURNACE COMBUSTION ANALYST: <0.1% AP-FURNACE COMBUSTION ANALYST: 0.1% -VS: 23.8% AP-VS: 76.1% FURNACE COMBUSTION ANALYST: Magnetic Rate: 85 LINDA: 65 LEAH: Current [...] Pruitt RN 03/07/2014 12:00 Janeen Mccollum AR SUPERVISOR METALIZING - 03/07/2014 11:07 AM PDT PATIENT NAME: [...] headaches. He paulino d been seen at [facility] a couple times with chest [...] needed for Chest pain. 25 tablet 12 [place]-3 Fatty Acids (SALMON OIL-1000 PO) CAPS, one [...] Sanchez Date: March 07, 2014 : 1960 Mine Patrol: Kailey Pruitt RN Device Data Analyst:Derivix Sense (mV) Impedance (?) Capture (V) Capture (ms) A Lead >5.60 402 1.500 0.09 RV Lead >31.36 522 2.00 0.09 LV Lead Battery Impedance (?): 528 Battery Voltage (V): 2.79 AZ Interval (ms): 147 AR Interval (ms): 217 VA Conduction: Mode Switch Events: 0 % of time: 0 -FURNACE COMBUSTION ANALYST: <0.1% AP-FURNACE COMBUSTION ANALYST: 0.1% -VS: 23.8% AP-VS: 76.1% FURNACE COMBUSTION ANALYST: Magnetic Rate: 85 LINDA: 65 LEAH: Current [...] attenuation cannot completely be ruled out. D. [facility] 12/25/13, shows noncritical coronary artery disease, mild [...] pain. He is in class II of [place] [employer] functional class . There are [...] ventricular arrhythmia performed by Dr. Gambino at [facility] on 01/30/2013. Patient had spontaneous PVCs [...] to go back in 3 days to [place] for an attempt of ablation under general [...] palpitations.. He is in class II of [place] [employer] functional class. There are no [...] bring in his blood pressure logs from [facility] e 5. Lightheadedness and dizziness/ presyncope: A. [...] made to ensure accuracy; however, inadvertent computerized django developer errors may be pre sent. Electronically signed [...] | | | | | | [place] [address] | | | | | | [phone] | | | | | | | | +--------+ + + + + | 05/01/ | Procedure | Cardiology | | | | 2019 | visit | | | | +--------+ + + + + | 05/01/ | Office | Cardiology | [place], | | | 2019 | Visit | | [address] | | | | | | [place], | | | | | | [place] [address] | | | | | | [phone] | | | | | | | | +--------+ + + + + | 05/21/ | Implant | Cardiology | Daljit Singletary, | Remote Device | 2019 | Monitor | | [facility] | Interrogation | | | | | [place], | (Primary Dx); | | | | | [place] [address] | Pacemaker; | | | | | [phone] | Sinoatrial node | | | | [...] 07, 2014 : | | | 1960 Mine Patrol: Kailey Pruitt RN Device | | | Data Analyst:XY Mobiletronic Sense (mV) Impedance (?) Capture (V) | | | Capture (ms) A Lead >5.60 402 1.500 0.09 RV Lead >31.36 522 2.00 | | | 0.09 LV Lead Battery Impedance (?): 528 Battery Voltage (V): | | | 2.79 AZ Interval (ms): 147 AR Interval (ms): 217 VA Conduction: | | | Mode Switch Events: 0 % of time: 0 -FURNACE COMBUSTION ANALYST: <0.1% AP-FURNACE COMBUSTION ANALYST: 0.1% -VS: | | | 23.8% AP-VS: 76.1% FURNACE COMBUSTION ANALYST: Magnetic Rate: 85 LINDA: 65 LEAH: Current [...] different from the original. DEVICE INTERROGATIONName: Moe Bradley Laura | | Date: March 07, 2014DOB: 1960 Mine Patrol: Kailey Pruitt RN Device | | Data Analyst:Medtronic Sense (mV) Impedance (?) Capture (V) Capture (ms) A Lead >5.60 | | 402 1.500 0.09 RV Lead >31.36 522 2.00 0.09 LV Lead Battery Impedance (?): 528 | | Battery Voltage (V): 2.79 AZ Interval (ms): 147 AR Interval (ms): 217 VA Conduction: | | Mode Switch Events: 0 % of time: 0 -FURNACE COMBUSTION ANALYST: <0.1% AP-FURNACE COMBUSTION ANALYST: 0.1% -VS: 23.8% AP-VS: 76.1% | | FURNACE COMBUSTION ANALYST: Magnetic Rate: 85 LINDA: 65 LEAH: Current [...] office. Device interrogation due in 6 months. Petty armendariz signed by: Kailey Pruitt RN 03/07/2014 12:00 [...]
--- OUTSIDE RECORDS SUMMARY | ~2020-04-13 | XMS | Encounter Summary ---
Demographics + + + | Address | [address] [place] [address] [address] | | | [place] [address] | + + + | Home Phone | | + + + | Preferred Language | Unknown | + + + | Marital Status | | + + + | Buddhism Affiliation | Unknown | + + + [...] [place] | | | | | [address] | | + + + + + Care Team Providers + +------+ + | Care Stockroom Attendant Name | Role | Phone | [...] | | 2019 | | Center at [facility] [address] | MD [address] | | | | | [address] | [facility] [place] | | | | | Mailcode: [place] | [address] | | | | | for Health and | [phone] | | | | | [facility] | | | | | | [facility] [place] | | | | | | [address] | | | | | | [phone] | | | +--------+ + + + [...]
--- OUTSIDE RECORDS SUMMARY | ~2020-04-13 | XMS | Encounter Summary ---
Demographics + + + | Address | [address] | | | [place] [address] | + + + | Home Phone [...] Team Providers + +------+ + | Care Records Administrator Name | Role | Phone | + +------+ + PCP | Unavailable | + +------+ + Encounter Details +--------+ + + + + | Date | Type | Department | Care Team | Description | +--------+ + + + + | 06/13/ | [facility] | [facility] | Daljit Singletary, | | | 2008 | Encounter | MED CTR LABORATORY | [address] | | | | | [address] [place] | [address], | | | | | [place] | [place] [address] | | | | | [address] | [phone] | | | | | [phone] | | | +--------+ + + + [...] W | | | | | | [place], | | | | | | [place] [address] | | | | | | [phone] | | | | | | | | +--------+ + + + + | 05/01/ | Procedure | Cardiology | | | | 2019 | visit | | | | +--------+ + + + + | 05/01/ | Office | Cardiology | [place] | | | 2019 | Visit | | [place] [address] | | | | | | [place], | | | | | | [place] [address] | | | | | | [phone] | | | | | | | | +--------+ + + + + | 05/21/ | Implant | Cardiology | Daljit Singletary, | Remote Device | 2019 | Monitor | | MD [address] [place] | Interrogation | | | | | [place], | (Primary Dx); | | | | | [place] [address] | Pacemaker; | | | | | [phone] | Sinoatrial node | | | | | | dysfunction (HCC) | | | | | | with symptomatic | | | | | | bradycardia | +--------+ + + + + documented as of this encounter Visit Diagnoses Not on filedocumented in this encounter"
--- OUTSIDE RECORDS SUMMARY | ~2020-04-13 | XMS | Encounter Summary ---
Demographics + + + | Address | [address] | | | [place] [address] | + + + | Home Phone [...] Team Providers + +------+ + | Care Mainspring Fabrication Supervisor Name | Role | Phone | + +------+ + | Kirk French MD | PCP | | + +------+ + Encounter Details +--------+ + + + + | Date | Type | Department | Care Team | Description | +--------+ + + + + | 03/15/ | Hospital | [facility] | Conversion | | | 2017 | Encounter | [facility] | Transaction, | | | | | [address] | Provider Unknown | | | | | [address] [place] | [phone] | | | | | [address] | | | | | | [phone] | Kirk French | | | | | | MD Brea [address] | | | | | | [address] [place], | | | | | | [place] [address] | | | | | | [phone] | | | | | | | [...] + + + +---------+ + + | [place]-3 Fatty | CAPS, one capsule by | [...] | | | | | | [place] [address] | | | | | | [phone] | | | | | | | | +--------+ + + + + | 05/01/ | Procedure | Cardiology | | | | 2019 | visit | | | | +--------+ + + + + | 05/01/ | Office | Cardiology | [place], | | | 2019 | Visit | | [place] [address] | | | | | | [place], | | | | | | [place] [address] | | | | | | [phone] | | | | | | | | +--------+ + + + + | 05/21/ | Implant | Cardiology | Dlajit Singletary, | Remote Device | | 2019 | Monitor | | [address] [place] | Interrogation | | | | | [place], | (Primary Dx); | | | | | [place] [address] | Pacemaker; | | | | | [phone] | Sinoatrial node | | | | | | dysfunction (HCC) | | | | | | with symptomatic | | | | | | bradycardia | +--------+ + + + + documented as of this encounter Visit Diagnoses Not on filedocumented in this encounter"
--- OUTSIDE RECORDS SUMMARY | ~2020-04-13 | XMS | Encounter Summary ---
Demographics + + + | Address | [address] | | | [place] [address] | + + + | Home Phone [...] + +------+ + | Care Health Program Analyst Name | Role | Phone | [...] + + | 05/26/ | Emergency | JACKMINanette GUTIERREZ MICHELLE | [place] | Atypical chest pain | | 2013 | | [facility] | DO Nicole Fink | (Primary Dx); | | | | CENTER [address] | [place], [place] | Anxiety | | | | [place], [place] | [address] | | | | | [address] | | | | | | [phone] | | | +--------+ + + + [...] + + + +---------+ + + | [place]-3 Fatty | CAPS, one capsule by | [...] W | | | | | | [place], | | | | | | [place] [address] | | | | | | [phone] | | | | | | | | +--------+ + + + + | 05/01/ | Procedure | Cardiology | | | | 2019 | visit | | | | +--------+ + + + + | 05/01/ | Office | Cardiology | [place], | | | 2019 | Visit | | [address] [address] | | | | | | [place], | | | | | | [place] [address] | | | | | | [phone] | | | | | | | | +--------+ + + + + | 05/21/ | Implant | Cardiology | Daljit Singletary, | Remote Device | 2019 | Monitor | | MD [address] [place] | Interrogation | | | | | [place], | (Primary Dx); | | | | | [place] [address] | Pacemaker; | | | | | [phone] | Sinoatrial node | | | | [...] the uneventful IV administration of 80 mL [id number] contrast. Timing of | | contrast bolus [...] + | MISCELLANEOUS LAB | | | [phone] | + +---------+ + + | MISCELANIOUS LAB | | | [phone] | + +---------+ + + Troponin I [...] | | | | | | [employer] | | | | | [...] + | [facility] | [address] | [place] | [phone] | | [facility] | | [address] | | | - LABORATORY | | | | + + + + + | [facility] | [address] | [place] | | | [facility] | | [address] | | | - LABORATORY | [...] mL/min/1.73m2 | [facility] | | | MONEGASQUE | RATE,ESTIMATED | | MEDICAL | | | | mL/min/1.48u3Zsoc than | | CENTER - | | [...] [address] | [place] | [phone] | | [facility] | | [address] | | | - LABORATORY | | | | + + + + + | [facility] | [address] | [place] | | | [facility] | | [address] | | | - LABORATORY | [...] + | [facility] | [address] | [place] | [phone] | | [facility] | | [address] | | | - LABORATORY | | | | + + + + + | [facility] | [address] | [place], [place] | | | [facility] | | [address] | | | - LABORATORY [...] iohexol (OMNIPAQUE 350) 350 | Given | 05/26/ | 80 mLs | | | | [...]
--- OUTSIDE RECORDS SUMMARY | ~2020-04-13 | XMS | Encounter Summary ---
Demographics + + + | Address | [address] | | | [place] [address] | + + + | Home Phone [...] Team Providers + +------+ + | Care Precision Grinder External Name | Role | Phone | + [...] | CARDIOLOGY [address] | [address] | reprogramming/check | | | | [place], | [place], | DO NOT DELETE | | | | [place] [address] | [place] [address] | (Primary Dx); | | | | [phone] | [phone] | Sinoatrial node | | | | [...] | | | | | | [place] [address] | | | | | | [phone] | | | | | | | | +--------+ + + + + | 05/01/ | Procedure | Cardiology | | | | 2019 | visit | | | | +--------+ + + + + | 05/01/ | Office | Cardiology | [place] | | | 2019 | Visit | | [place] [address] | | | | | | [place], | | | | | | [place] [address] | | | | | | [phone] | | | | | | | | +--------+ + + + + | 05/21/ | Implant | Cardiology | Daljit Singletary, | Remote Device | | 2019 | Monitor | | [address] | Interrogation | | | | | [place], | (Primary Dx); | | | | | [place] [address] | Pacemaker; | | | | | [phone] | Sinoatrial node | | | | [...] Daljit | PACEART | | MD Gemini 06/23/2016 16:09 PATIENT [...]
--- OUTSIDE RECORDS SUMMARY | ~2020-04-13 | XMS | Encounter Summary ---
Demographics + + + | Address | [address] | | | [place] [address] | + + + | Home Phone [...] Providers + +------+ + | Care Night Filler Name | Role | Phone | [...] [place] | | | | | | [address] | [address] Phone: | | | | | | Phone: | [phone] | | | | | | [phone] | Fax: | | | | | | Fax: | [phone] | | | | | | [phone] | | +--------+ + + + + [...] | diurnal enuresis | | | | [place], [place] | [place], [place] | (Primary Dx); BPH | | | | [address] | [address] | with | | | | [phone] | | obstruction/lower | | | | [...] Haleigh rodarte states that the surgeon in [place] who performed his neck surgery is no longer practicing a nd was apparently disciplined and had his license revoked by the [facility]. He has us ed marijuana for his [...] APNEA CONDS CLASSIFIED ELSEWHERE (12/15/2010); Ulcerative colitis ([facility]); Ches t pain; SINUS BRADYCARDIA; HEPATITIS B; PUD; FATTY LIVER DISEASE; SUBSTANCE ABUSE, MULTIPLE; Preventative health care (06/26/2013); Bladder troubles; Tuberculosis; Anginal pain ([facility]); St roke ([facility]); Prostate troubles; and Neurological disorder. Past [...] needed for Chest pain. 25 tablet 12 [place]-3 Fatty Acids (SALMON OIL-1000 PO) CAPS, one capsule by mouth daily twice daily ONE TOUCH DELICA LANCETS [facility] Check glucose as needed for [...] Date/Time: 04/22/2012 16:56 Transcribed Date/Time: 04/22/2012 17:32 Joint Cleaning Machine Operator: <Electronically Signed by Jama Solis MD> 04/23/12 [...] Date/Time: 04/23/2012 10:54 Transcribed Date/Time: 04/23/2012 11:06 Joint Cleaning Machine Operator: <Electronically Signed by Jama Solis MD> 04/24/12 9832 IMPRESSION: 1. Nocturnal and diurnal enuresis. I [...] still believe that the recommendations from [facility] neurosurgeon, Dr. Demarco, on 03/13/2014 would [...] have not thoroughly proofread this note, and dial refinisher erro rs may occur. CC: Kirk French [...] | | | | | | [place] [address] | | | | | | [phone] | | | | | | | | +--------+ + + + + | 05/01/ | Procedure | Cardiology | | | | 2019 | visit | | | | +--------+ + + + + | 05/01/ | Office | Cardiology | [place], | | | 2019 | Visit | | [address] | | | | | | [place], | | | | | | [place] [address] | | | | | | [phone] | | | | | | | | +--------+ + + + + | 05/21/ | Implant | Cardiology | Daljit Singletary, | Remote Device | | 2019 | Monitor | | [address] [place] | Interrogation | | | | | [place], | (Primary Dx); | | | | | [place] [address] | Pacemaker; | | | | | [phone] | Sinoatrial node | | | | [...] 1.001 - 1.030 | | | | [place], | | | | | | UA, [...]
--- OUTSIDE RECORDS SUMMARY | ~2020-04-13 | XMS | Encounter Summary ---
Demographics + + + | Address | [address] | | | [place] [address] | + + + | Home Phone [...] Providers + +------+ + | Care Recycling Assistant Name | Role | Phone | [...] | | | | | [place], [place] | (Fax) | | | | | [address] | | | | | | [phone] | | | +--------+ + + + [...] | | | | | | [place] [address] | | | | | | [phone] | | | | | | | | +--------+ + + + + | 05/01/ | Procedure | Cardiology | | | | 2019 | visit | | | | +--------+ + + + + | 05/01/ | Office | Cardiology | [place], | | | 2019 | Visit | | PARISA [place] [address] | | | | | | [place], | | | | | | [place] [address] | | | | | | [phone] | | | | | | | | +--------+ + + + + | 05/21/ | Implant | Cardiology | Daljit Singletary, | Remote Device | | 2019 | Monitor | | [address] [place] | Interrogation | | | | | [place], | (Primary Dx); | | | | | [place] [address] | Pacemaker; | | | | | [phone] | Sinoatrial node | | | | | | dysfunction (HCC) | | | | | | with symptomatic | | | | | | bradycardia | +--------+ + + + + documented as of this encounter Visit Diagnoses Not on filedocumented in this encounter"
--- OUTSIDE RECORDS SUMMARY | ~2020-04-13 | XMS | Encounter Summary ---
Demographics + + + | Address | [address] | | | [place] [address] | + + + | Home Phone [...] Team Providers + +------+ + | Care Casino Dealer Name | Role | Phone | [...] Description | +--------+---------+ + + + | 06/23/ | Office | [facility] | [place], | Ascending thoracic | | 2016 | Visit | CARDIOLOGY [address] | [place] [address] | aortic aneurysm | | | | [place], | [place], | ([facility]) (Primary Dx); | | | | [place] [address] | [place] [address] | Coronary artery | | | | [phone] | [phone] | disease involving | | | | | | grindstone coronary | | | | | | artery of grindstone | | | | | | heart without angina | | | | | | pectoris; Essential | | | | | | hypertension with | | | | | | goal blood pressure | | | | | | less than 130/80; | | | | | | Chest pain, | | | | | [...] | | | | | | 06/14/2009; Pacemaker | | | | | | reprogramming/check | | | | | | DO NOT DELETE | +--------+---------+ + + + Social History [...] + + + | Blood Pressure | 126/72 | 06/23/2016 1:19 PM | | | | | PDT | | + + + + + | Pulse | 74 | 06/23/2016 1:19 PM | | | | | PDT | | + + + + + | Temperature | - | - | | + + + + + | Respiratory Rate | 16 | 06/23/2016 1:19 PM | | | | | PDT | | + + + + + | Oxygen Saturation | - | - | | + + + + + | Inhaled Oxygen | - | - | | | Concentration | | | | + + + + + | Weight | 116.6 kg (257 lb) | 06/23/2016 1:19 PM | | | | | PDT | | + + + + + | Height | 190.5 cm (6' 3") | 06/23/2016 1:19 PM | | | | | PDT | | + + + + + | Body Mass Index | 32.12 | 06/23/2016 1:19 PM | | | | | PDT [...] encounter Progress Notes Kailey Pruitt RN - 06/23/2016 3:49 PM PDT PATIENT NAME: Moe Sanchez : 1960: AGE: 56 y.o. Pacemaker Evaluation Report June 23, 2016 Reason for evaluation: routine Indication for pacemaker: ICD-10-CM ICD-9-CM 1. Pacemaker reprogramming/check DO NOT DELETE Z45.018 V53.31 Device Interrogation 2. Sinoatrial node dysfunction (HCC) with symptomatic bradycardia I49.5 427.81 Device I nterrogation 3. Pacemaker - Medtronic - [id number] Adapta - Implanted 06/14/2009 Z95.0 V45.01 Device Inte rrogation Patient was seated and reclined and device [...] by Sydni Singletary MD Underlying rhythm: Sinus bradycardia 37 beats. No episodes. Histogram fair. Battery longevity 4.5 years. Normal and stable device function. Prefers office checks. Device interrogation due in office in 6 months. hgabby, Janeen, FACILITIES MAINTENANCE SUPERVISOR - 06/23/2016 12:45 PM PDT PATIENT NAME: Moe Sanchez : 1960: AGE: 56 y.o. PRIMARY CARE: Kirk French MD OUTPATIENT FOLLOW UP VISIT Date of Service: 06/23/2016 HISTORY OF PRESENT ILLNESS: Moe Sanchez is a 56 y.o. male with a history of non-critical coronary artery d isease involving grindstone coronary artery of grindstone heart without angina pectoris, essential h ypertension, symptomatic bradycardia status post Medtronic dual-chamber permanent pacemaker implantation 06/14/09, frequent premature ventricular contractions status post ablation sprin g 2012, and bipolar disorder with anxiety. He is being seen today for follow up coronary ar taylor disease, PVC's and device interrogation. He was last seen 12/31/2015 at which time he was to continue same therapeutic medical regim en and follow up in 6 months. Since that time, he has been "okay". He just went through a d ivorced and now is doing better. He has had a good energy level. He tries to stay active he has been just working outside in the yard. He enjoys gardening and caring for his dogs in his spare time. He has not had any chest pain or discomfort at rest or with exertion. He has not noticed shortness of breath. He has not had any lightheadedness or dizziness. He h as noticed brief palpitations that have no associated symptoms and are unchanged in frequenc y and duration from his norm. He has not had leg swelling. He sleeps on 1 pillow at night without any shortness of breath. He has had no cardiac complaints. He is getting ready to o [place]. MEDICAL, SURGICAL, AND PERSONAL HISTORY Past Medical, [...] Preventative health care Coronary artery disease involving grindstone coronary artery of grindstone heart without angina pectoris Cannabis abuse, daily [...] Twice daily as needed for Anx iety. PATIENT STATED NO LONGER TAKING THIS MEDICATION. STATED ON 06/23/2016. cloNIDine (CATAPRES) 0.2 MG tablet Take 1 [...] by mouth every evening 90 tablet 3 [facility] (OSTEO BI-FLEX/5-LOXIN ADVANCED PO) Take [...] 3rd dose, call 911 100 tablet 3 Carmen-3 Fatty Acids (SALMON OIL-1000 PO) CAPS, one capsule by mouth daily twice daily ONE TOUCH DELICA LANCETS [facility] – [...] ROS Review of Systems Constitutional: Positive for diaphoresis. Negative for fever, chills, weight loss and malai se/fatigue. HENT: Positive for hearing loss and tinnitus. Negative for congestion and nosebleeds. Dental Problems = No Eyes: Positive for blurred vision. Negative for double vision. Respiratory: Negative for shortness of breath. Cardiovascular: Positive for chest pain and palpitations. Negative for leg swelling. Gastrointestinal: Negative for nausea, vomiting, diarrhea, constipation and blood in stool. Genitourinary: Negative for dysuria, urgency, frequency and hematuria. Musculoskeletal: Positive for myalgias, back pain, joint pain and falls. Negative for neck pain. Gait Problems = No Skin: Positive for itching. Negative for rash. Neurological: Negative for dizziness, tingling, tremors, speech change, seizures, loss of c onsciousness and weakness. Lightheaded = No Endo/Heme/Allergies: Bruises/bleeds easily. Psychiatric/Behavioral: Negative for memory loss. The patient is not nervous/anxious and do es not have insomnia. OBJECTIVE: PHYSICAL EXAM BP 126/72 mmHg | Pulse 74 | Resp 16 | Ht 1.905 m (6' 3") | Wt 116.574 kg (257 lb) | BMI 32. 12 kg/m2 Physical Exam Constitutional: He is oriented [...] led by another provider- Dr. Singletary) from 06/23/2016 shows atrial-paced rhythm and heart rate 76 bpm. LAB RESULTS reviewed during visit today primarily from [facility]: LIPID Lab Results Component [...] PLTEX 129* 05/12/2016 I reviewed records from PCP for office visit on 05/12/2016 which is summarized in the HPI. Echocardiogram 06/16/16, shows normal left ventricular size, wall thickness and motion, pre served left ventricular systolic function, LVEF is 70%, grade 1 left ventricular diastolic d ysfunction, normal valvular structure, mild aortic root dilatation measuring 4.[address], normal right-sided pressure, normal IVC with a normal respiratory collapse, when compar ed to echocardiography on 03/19/15, no significant changes. PATIENT NAME: Moe Sanchez : 1960: AGE: 56 y.o. Pacemaker Evaluation Report June 23, 2016 Reason for evaluation: routine Indication for pacemaker: ICD-10-CM ICD-9-CM 1. Pacemaker reprogramming/check DO NOT DELETE Z45.018 V53.31 Device Interrogation 2. Sinoatrial node dysfunction (HCC) with symptomatic bradycardia I49.5 427.81 Device I nterrogation 3. Pacemaker - Medtronic - ADDR01 Adapta - Implanted 06/14/2009 Z95.0 V45.01 Device Inte rrogation Patient was seated and reclined and device [...] by Sydni Singletary MD Underlying rhythm: Sinus bradycardia 37 beats. No episodes. Histogram fair. Battery longevity 4.5 years. Normal and stable device function. Prefers office checks. Device interrogation due in office in 6 months. Above data and testing is reviewed this visit; testing below is historical data unless othe rwise specified. ASSESSMENT: 1. Non-critical Coronary artery disease involving grindstone coronary artery of grindstone heart [facility] angina pectoris: A. Normal exercise sestamibi stress [...] G. Today, he denies recurrent chest pain. He is in class I-II of [employer] n functional class. There are no signs or symptoms of overt congestive heart failure. There is no fluid retention on physical examination. 2. Symptomatic PVC's status post ablation: A. [...] to go back in 3 days to [place] for an attempt of ablation under general [...] of episodes palpitations, lightheadedness or d izziness. 3. Sinoatrial node dysfunction with symptomatic bradycardia: [...] battery l ongevity is 5 years.. 4. Essential hypertension with goal blood pressure less than 130/80: A. Today blood pressure is well controlled with normal values. 5. Lightheadedness and dizziness/ presyncope: A. Episode [...] is effective; continue present plan and medications. He has been recommended to increase physical activity and more cardio exercise 2. He will follow up in 6 months with office visit and device interrogation, or sooner with concerns. Portions of this chart may have been created with Plethora voice recognition software. Occasi onal wrong-word or [...] W | | | | | | [place], | | | | | | [place] [address] | | | | | | [phone] | | | | | | | | +--------+ + + + + | 05/01/ | Procedure | Cardiology | | | | 2019 | visit | | | | +--------+ + + + + | 05/01/ | Office | Cardiology | [place], | | | 2019 | Visit | | PARISA [place] [address] | | | | | | [place], | | | | | | [place] [address] | | | | | | [phone] | | | | | | | | +--------+ + + + + | 05/21/ | Implant | Cardiology | SunshinecherelleSydni, | Remote Device | | 2019 | Monitor | | [address] [facility] | Interrogation | | | | | [place], | (Primary Dx); | | | | | [place] [address] | Pacemaker; | | | | | [phone] | Sinoatrial node | | | | [...] | ECG 12 LEAD | Routin | 06/23/2016 | Coronary artery | Results for this | | | e | 1:12 PM | disease involving | procedure are in the | | | | PDT | grindstone coronary | results section. | | | | | artery of grindstone | | | | | | heart without angina | | | | | | pectoris Essential | | | | | | hypertension with | | | | | | goal blood pressure | | | | | | less than 130/80 | | + +--------+ + + + documented in this encounter Results ECG 12 lead (06/23/2016 [...] MD | | | | | | ([id number]) on 06/23/2016 | | | | | [...] + + | Coronary artery disease involving grindstone coronary artery of grindstone heart without | | angina pectoris | + + | Essential hypertension with goal blood pressure less than 130/80 | + + | Chest pain, unspecified type | + + | Sinoatrial node dysfunction (HCC) with symptomatic bradycardia Sinoatrial node | | dysfunction | + + | Pacemaker - Medtronic - [id number] Adapta - Implanted 06/14/2009 Cardiac pacemaker in situ | + + | Pacemaker reprogramming/check DO NOT DELETE Fitting and adjustment of cardiac | | pacemaker | + + documented in this encounter
--- OUTSIDE RECORDS SUMMARY | ~2020-04-13 | XMS | Encounter Summary ---
Demographics + + + | Address | [address] | | | [place] [address] | + + + | Home Phone [...] Team Providers + +------+ + | Care Archeologist Name | Role | Phone | + [...] + + | 12/14/ | Telephone | [facility] | Emmanuel Daniel MD | Follow-up, Office | | 2019 | | GASTROENTEROLOGY | [address], [place] | Visit (wants to | | | | [address] [place] | [address] [place] | cancel his office | | | | [address] [place] | [address] | appointment today) | | | | [address] | | | | | | [phone] | | | +--------+ + + + [...] | | | | | | [place] [address] | | | | | | [phone] | | | | | | | | +--------+ + + + + | 05/01/ | Procedure | Cardiology | | | | 2019 | visit | | | | +--------+ + + + + | 05/01/ | Office | Cardiology | Silvia, | | | 2019 | Visit | | PARISA Vernon [address] | | | | | | [place], | | | | | | [place] [address] | | | | | | [phone] | | | | | | | | +--------+ + + + + | 05/21/ | Implant | Cardiology | Daljit Singletary, | Remote Device | | 2019 | Monitor | | [address] | Interrogation | | | | | [place], | (Primary Dx); | | | | | [place] [address] | Pacemaker; | | | | | [phone] | Sinoatrial node | | | | | | dysfunction (HCC) | | | | | | with symptomatic | | | | | | bradycardia | +--------+ + + + + documented as of this encounter Visit Diagnoses Not on filedocumented in this encounter"
--- OUTSIDE RECORDS SUMMARY | ~2020-04-13 | XMS | Encounter Summary ---
Demographics + + + | Address | [address] | | | [place] [address] | + + + | Home Phone [...] Providers + +------+ + | Care Auto Claim Representative Name | Role | Phone | [...] + + | 06/06/ | Office | [facility] | [place], | Essential | | 2019 | Visit | CARDIOLOGY [address] | [place] [address] | hypertension | | | | [place], | [place], | (Primary Dx); | | | | [place] [address] | [place] [address] | Sinoatrial node | | | | [phone] | [phone] | dysfunction (HCC) | | | | | | with symptomatic | | | | | | bradycardia; | | | | | | Symptomatic PVCs; | | | | | | Tachycardia; | | | | | | Coronary artery | | | | | | disease involving | | | | | | table mountain coronary | | | | | | artery of table mountain | | | | | | heart [...] encounter Patient Instructions Patient Instructions Julia Allen, Veterinary Hospital Attendant - 06/06/2019 2:15 PM PDT1. Take [...] of -critical coronary artery dise ase involving table mountain coronary artery of table [place] heart without angina pectoris, essential hype rtension, [...] was seen in the emergency department at [facility] in [place] due to chest pain, no medication changes [...] Preventative health care Coronary artery disease involving table mountain coronary artery of table [place] heart without angina pectoris Cannabis abuse, daily [...] 3RD DOSE, CALL 911 100 tablet 3 [place]-3 Fatty Acids (SALMON OIL-1000 PO) CAPS, one capsule by mouth daily twice daily ondansetron (ZOFRAN ODT) 4 mg disintegrating tablet Take 4 mg by mouth every 8 hours as needed for Nausea. ONE TOUCH DELICA LANCETS [facility] [...] 48 06/02/2019 I reviewed records from [facility] for emergency department visit o n 06/02/2019 which is summarized in the HPI. RESULTS- I reviewed reports from [facility]: Ct Abdomen Pelvis W Contrast [...] ASSESSMENT: 1. Non-critical Coronary artery disease involving table mountain coronary artery of table mountain heart [facility] angina pectoris: A.Normal exercise sestamibi [...] to go back in 3 days to [place] for an attempt of ablation under general [...] a normal stable device function. Estimated remaining [facility] taylor longevity is 3.5 years. D. Device [...] visit, or sooner with concerns. Julia Clemente, Veterinary Hospital Attendant am acting as a scribe on behalf of, and in the presenc e of PARISA Lomas. - Reji Church 06/06/2019 15:10 Janeen Clemente ARNP, personally performed the services described in this documentati on, as scribed in my presence and it is both accurate and complete. -PARISA Lomas 06/06/2019 Portions of this chart may have been created with Ellie voice recognition software. Occasi onal wrong-word or [...] | | | | | | [place] [address] | | | | | | [phone] | | | | | | | | +--------+ + + + + | 05/01/ | Procedure | Cardiology | | | 2019 | visit | | | | +--------+ + + + + | 05/01/ | Office | Cardiology | [place], | | | 2019 | Visit | | PARISA [place] [address] | | | | | | [place], | | | | | | [place] [address] | | | | | | [phone] | | | | | | | | +--------+ + + + + | 05/21/ | Implant | Cardiology | Sydni Singletary, | Remote Device | | 2019 | Monitor | | [address] [facility] | Interrogation | | | | | [place], | (Primary Dx); | | | | | [place] [address] | Pacemaker; | | | | | [phone] | Sinoatrial node | | | | [...] MD | | | | | | ([id number]) on 06/06/2019 | | | | | [...] + + | Coronary artery disease involving table mountain coronary artery of table mountain heart without | | angina pectoris | + + | Syncope, unspecified syncope type | + + | Ascending thoracic aortic aneurysm (HCC) Thoracic aneurysm without mention of rupture | + + | Hyperlipidemia, mixed Mixed hyperlipidemia | + + documented in this encounter
--- OUTSIDE RECORDS SUMMARY | ~2020-04-13 | XMS | Encounter Summary ---
Demographics + + + | Address | [address] | | | [place] [address] | + + + | Home Phone [...] Providers + +------+ + | Care Correctional Supervisor Name | Role | Phone | + +------+ + PCP | Unavailable | + +------+ + Encounter Details +--------+ + + + + | Date | Type | Department | Care Team | Description | +--------+ + + + + | 03/08/ | [facility] | [facility] | Emmanuel Daniel MD | | | 2006 | Encounter | MED CTR GENERIC OP | [address] | | | | | CONV DEPT [address] | [address] [place] [address] | | | | | [place], | [address] | | | | | [place] [address] | | | | | | [phone] | | | +--------+ + + + [...] | | | | | | [place], | | | | | | [place] [address] | | | | | | [phone] | | | | | | | | +--------+ + + + + | 05/01/ | Procedure | Cardiology | | | | 2019 | visit | | | | +--------+ + + + + | 05/01/ | Office | Cardiology | [place], | | | 2019 | Visit | | PAR[place] [address] | | | | | | [place], | | | | | | [place] [address] | | | | | | [phone] | | | | | | | | +--------+ + + + + | 05/21/ | Implant | Cardiology | Daljit Singletary, | Remote Device | 2019 | Monitor | | [address] [place] | Interrogation | | | | | [place], | (Primary Dx); | | | | | [place] [address] | Pacemaker; | | | | | [phone] | Sinoatrial node | | | | | | dysfunction (HCC) | | | | | | with symptomatic | | | | | | bradycardia | +--------+ + + + + documented as of this encounter Visit Diagnoses Not on filedocumented in this encounter"
--- OUTSIDE RECORDS SUMMARY | ~2020-04-13 | XMS | Encounter Summary ---
Demographics + + + | Address | [address] | | | [place] [address] | + + + | Home Phone [...] Team Providers + +------+ + | Care Escalator Constructor Name | Role | Phone | + [...] Provider Unknown | | | | | [place], [place] | [phone] | | | | | [address] | | | | | | [phone] | | | +--------+ + + + [...] + + + +---------+ + + | [place]-3 Fatty | CAPS, one capsule by | [...] | | | | | | [place] [address] | | | | | | [phone] | | | | | | | | +--------+ + + + + | 05/01/ | Procedure | Cardiology | | | | 2019 | visit | | | | +--------+ + + + + | 05/01/ | Office | Cardiology | [place], | | | 2019 | Visit | | [place] [address] | | | | | | [place], | | | | | | [place] [address] | | | | | | [phone] | | | | | | | | +--------+ + + + + | 05/21/ | Implant | Cardiology | Daljit Singletary, | Remote Device | 2019 | Monitor | | [address] [place] | Interrogation | | | | | [place], | (Primary Dx); | | | | | [place] [address] | Pacemaker; | | | | | [phone] | Sinoatrial node | | | | [...]
--- OUTSIDE RECORDS SUMMARY | ~2020-04-13 | XMS | Encounter Summary ---
Demographics + + + | Address | [address] [place] [address] [place] | | | [place] [address] | + + + | Home Phone [...] [place] | | | | | [address] | | + + + + + Care Team Providers + +------+ + | Care High Voltage Electrician Name | Role | Phone | [...] | | | | | unspecified | [address] | | | | | | type Rectal | Ave | | | | | | bleeding | [facility] [place] | | | | | | Procedures | [address] | | | | | | CONSULT TO | Phone: | | | | | | GASTROENTERO | [phone] | | | | | | LOGY | Fax: | | | | | | | [phone] | | + +--------+ + + + [...] | | | | | Procedures | [place], [place] | [facility] | | | | | CONSULT TO | [address] | Health and | | | | | ENDOSCOPY | Phone: | Healing, | | | | | UNIT: | [phone] | [address] | | | | | BOWEL | Fax: | [place], [place] | | | | | CAPSULE | [phone] | [address] | | | | | ENDOSCOPY | | Phone: | | | | | | | [phone] | | | | | | | Fax: | | | | | | | [phone] | + +--------+ + + + + [...] | | | | | bleeding | [place], [place] | [address] | | | | | Procedures | [address] | for Health | | | | | CONSULT TO | Phone: | and Healing, | | | | | ENDOSCOPY | [phone] | Building [address] | | | | | UNIT: | Fax: | [place], [place] | | | | | COLONOSCOPY | [phone] | [address] | | | | | | | Phone: | | | | | | | [phone] | | | | | | | Fax: | | | | | | | [phone] | +--------+--------+ + + + + Reason [...] | Other | | 2020 | | [place] [facility] [address] | MD [address] | | | | | [address] | [facility] [place] | | | | | Mailcode: [place] | [address] | | | | | for Health and | [phone] | | | | | [facility] [address] | | | | | | [place], [place] | | | | | | [address] | | | | | | [phone] | | | +--------+ + + + [...]
--- OUTSIDE RECORDS SUMMARY | ~2020-04-13 | XMS | Encounter Summary ---
Demographics + + + | Address | [address] | | | [place] [address] | + + + | Home Phone [...] Team Providers + +------+ + | Care Black Studies Professor Name | Role | Phone [...] [place] | | | | | | [address] | | | | | | [phone] | | | +--------+ + + + [...] W | | | | | | [place], | | | | | | [place] [address] | | | | | | [phone] | | | | | | | | +--------+ + + + + | 05/01/ | Procedure | Cardiology | | | | 2019 | visit | | | | +--------+ + + + + | 05/01/ | Office | Cardiology | Silvia, | | | 2019 | Visit | | [address] [address] | | | | | | [place], | | | | | | [place] [address] | | | | | | [phone] | | | | | | | | +--------+ + + + + | 05/21/ | Implant | Cardiology | Daljit Singletary, | Remote Device | | 2019 | Monitor | | [address] [facility] | Interrogation | | | | | [place], | (Primary Dx); | | | | | [place] [address] | Pacemaker; | | | | | [phone] | Sinoatrial node | | | | | | dysfunction (HCC) | | | | | | with symptomatic | | | | | | bradycardia | +--------+ + + + + documented as of this encounter Visit Diagnoses Not on filedocumented in this encounter"
--- OUTSIDE RECORDS SUMMARY | ~2020-04-13 | XMS | Encounter Summary ---
Demographics + + + | Address | [address] | | | [place] [address] | + + + | Home Phone [...] Team Providers + +------+ + | Care Turn Sewer Name | Role | Phone | + +------+ + | Michael Amanda DO | PCP | | + +------+ + Encounter Details +--------+ + + + + | Date | Type | Department | Care Team | Description | +--------+ + + + + | 01/31/ | Hospital | [facility] | Adrian Gutierrez MD | | | 2012 | Encounter | [facility] | [address] | | | | | EMERGENCY CENTER | [place], [place] | | | | | [address] | [address] | | | | | [place] | [phone] | | | | | [address] | | | | | | [phone] | | | +--------+ + + + [...] + + + +---------+ + + | Winston-3 Fatty | CAPS, one capsule by | [...] | | | | | | [place] [address] | | | | | | [phone] | | | | | | | | +--------+ + + + + | 05/01/ | Procedure | Cardiology | | | | 2019 | visit | | | | +--------+ + + + + | 05/01/ | Office | Cardiology | Silvia, | | | 2019 | Visit | | [address] [place] [address] | | | | | | [place], | | | | | | [place] [address] | | | | | | [phone] | | | | | | | | +--------+ + + + + | 05/21/ | Implant | Cardiology | Daljit Singletary, | Remote Device | 2019 | Monitor | | MD [address] [place] | Interrogation | | | | | [place], | (Primary Dx); | | | | | [place] [address] | Pacemaker; | | | | | [phone] | Sinoatrial node | | | | [...] + + + | Exam Performed Location: [facility] [place] TWO-VIEW | MISCELANIOUS | | CHEST CLINICAL [...] | an acute cardiopulmonary process. S: SQ ([id number]) Signed by: | | | JAYNE SPEAR MD | | + + + + + | Procedure Note | + + | Kevin, Rad Conversion - 09/13/2013 10:25 PM PDT Exam Performed Location: [facility] | | at [facility] HeartTWO-VIEW CHESTCLINICAL INFORMATION:Shortness of | | breath.COMPARISON:None.FINDINGS:There is a left subclavian dual lead cardiac pacer. The | | heart sizeand mediastinal contours are normal. The pulmonary vasculature isnormal. No | | focal airspace opacities, pleural effusions, orpneumothorax. Cervical fusion hardware | | is noted. No acute osseousfindings.IMPRESSION:No evidence of an acute cardiopulmonary | | process.S: SQ ([id number]) Signed by: JAYNE SPEAR MD | |COMPARISON: [...] | | | | | |S: SQ ([id number]) Signed by: JAYNE SPEAR MD | + + + +---------+ + + | Performing | Address | City/State/Zipcode | Phone Number | | Organization | | | | + +---------+ + + | MISCELLANEOUS LAB | | | [phone] | + +---------+ + + | MISCELANIOUS LAB | | | [phone] | + +---------+ + + Troponin I [...] + + | [facility] | [address] | [place] [address] | | | [facility] | [...] + + | [facility] | [address] | [place] [address] | | | [facility] | [...] + + | [facility] | [address] | [place] [address] | | | [facility] | [...] + + | [facility] | [address] | [place] [address] | | | [facility] | | | | | LABORATORY | | | | + + + + + | [facility] | | | | | [facility] | | | | | [...] + + | Glucose | 154 (H)Comment: Greek | 65 - 99 mg/dL | [facility] [...] + + | [facility] | [address] | [place] [address] | | | HEART [facility] | | | | | LABORATORY | | | | + + + + + | [facility] | | | | | HEART [facility] | | | | | LABORATORY | | | | + + + + + documented in this encounter Visit Diagnoses Not on filedocumented in this encounter"
--- OUTSIDE RECORDS SUMMARY | ~2020-04-13 | XMS | Encounter Summary ---
Demographics + + + | Address | [address] | | | [place] [address] | + + + | Home Phone [...] Team Providers + +------+ + | Care Launch Leader Name | Role | Phone | [...] Refill | | 2013 | | [facility]IC[facility] | DO [address] | | | | | [address] | [place] | | | | | [place] | [address] | | | | | [address] | | | | | | [phone] | | | +--------+--------+ + + + [...] W | | | | | | [place], | | | | | | [place] [address] | | | | | | [phone] | | | | | | | | +--------+ + + + + | 05/01/ | Procedure | Cardiology | | | | 2019 | visit | | | | +--------+ + + + + | 05/01/ | Office | Cardiology | Silvia, | | | 2019 | Visit | | [address] | | | | | | [place], | | | | | | [place] [address] | | | | | | [phone] | | | | | | | | +--------+ + + + + | 05/21/ | Implant | Cardiology | Daljit Singletary, | Remote Device | | 2019 | Monitor | | [address] [facility] | Interrogation | | | | | [place], | (Primary Dx); | | | | | [place] [address] | Pacemaker; | | | | | [phone] | Sinoatrial node | | | | | | dysfunction (HCC) | | | | | | with symptomatic | | | | | | bradycardia | +--------+ + + + + documented as of this encounter Visit Diagnoses Not on filedocumented in this encounter"
--- OUTSIDE RECORDS SUMMARY | ~2020-04-13 | XMS | Encounter Summary ---
Demographics + + + | Address | [address] [place] [address] [address] | | | [place] [address] | + + + | Home Phone | | + + + | Preferred Language | Unknown | + + + | Marital Status | | + + + | Sikhism Affiliation | Unknown | + + + [...] [place] | | | | | [address] | | + + + + + Care Team Providers + +------+ + | Care Metal Sprayer Machined Parts Name | Role | Phone [...] | | 2019 | | Center at [facility] [address] | MD [address] | | | | | [address] | [place], [place] | | | | | Mailcode: [place] | [address] | | | | | [facility] and | [phone] | | | | | [place] [address] | | | | | | [place], [place] | | | | | | [address] | | | | | | [phone] | | | +--------+ + + + [...]
--- OUTSIDE RECORDS SUMMARY | ~2020-04-13 | XMS | Encounter Summary ---
Demographics + + + | Address | [address] | | | [place] [address] | + + + | Home Phone [...] Providers + +------+ + | Care Clerical And Administrative Workers Name | Role | Phone | + +------+ + | Michael Amanda DO | PCP | | + +------+ + Encounter Details +--------+ + + + + | Date | Type | Department | Care Team | Description | +--------+ + + + + | 01/30/ | Hospital | [facility] | Jay Gambino MD | | | 2012 - | Encounter | HEART MED CTR | [address] | | | | | CARDIAC TELEMETRY | [address] [place], | | | 01/31/ | | [address] | [place] [address] | | | 2012 | | [place] | [phone] | | | | | [address] | | | | | | [phone] | | | +--------+ + + + [...] 1960 ADMISSION DATE: 01/30/2013 DISCHARGE DATE: 01/31/2013 [id number] / [id number] ADMITTING DIAGNOSES: 1. Symptomatic PVCs. 2. Sinus [...] 150, 1 to 2 tabs daily. 10. Gerlaw-3 fatty acids 1000 mg b.i.d. MOE GAY ADM:01/30/13 [id number] 01/31/13 DIS [place] DISCHARGE SUMMARY [id number] [facility] Carmela Cuevas PAC B [facility] MD Meena Pleitez THIS REPORT IS CONFIDENTIAL AND NOT TO BE RELEASED WITHOUT PROPER AUTHORIZATION. [facility] 11. Valacyclovir 500 mg daily. B. New medication added: Diltiazem CD 180 a day. FOLLOWUP: The patient has a followup appointment on 03/02/2013 at 10:[address] Niles meza at the [facility] [place], [address]. No heavy lifting or driving times 48 hours. YOANA Barlow MD A P [facility] #[id number] cc: MD Carmela Pleitez PA-C Electronically Signed 02/06/13 1616 LAKESHIA Barlow Electronically Signed 02/20/13 0731 Jay Gambino MD MOE GAY ADM:01/30/13 [id number] 01/31/13 DIS [place] DISCHARGE SUMMARY [id number] [facility] LAKESHIA Barlow B [facility] Jay Gambino MD R THIS REPORT IS CONFIDENTIAL AND NOT TO BE RELEASED WITHOUT PROPER AUTHORIZATION.Electronica lly signed by Jael Brown at 02/20/2013 7:31 AM FRANCYZzCarmela Moncada - 02/01/20 13 8:44 AM PDT PATIENT NAME: MOE GAY Sex/Age: M / 52Y : 1960 ADMISSION DATE: 01/30/2013 DISCHARGE DATE: 01/31/2013 [id number] / [id number] ADMITTING DIAGNOSES: 1. Symptomatic PVCs. 2. Sinus [...] 150, 1 to 2 tabs daily. 10. Gerlaw-3 fatty acids 1000 mg b.i.d. MOE GAY ADM:01/30/13 [id number] 01/31/13 DIS [place] DISCHARGE SUMMARY [id number] [facility] LAKESHIA Barlow B [facility] MD Meena Pleitez THIS REPORT IS CONFIDENTIAL AND NOT TO BE RELEASED WITHOUT PROPER AUTHORIZATION. [facility] 11. Valacyclovir 500 mg daily. B. New medication added: Diltiazem CD 180 a day. FOLLOWUP: The patient has a followup appointment on 03/02/2013 at 10:[address] Niles meza at the [facility] [place], [address]. No heavy lifting or driving times 48 hours. YOANA Barlow MD [facility] #[id number] cc: MD Carmela Pleitez PA-C Electronically Signed 02/06/13 1616 LAKESHIA Barlow MOE GAY ADM:01/30/13 [id number] 01/31/13 DIS [place] DISCHARGE SUMMARY [id number] [facility] LAKESHIA Barlow ES B [facility] Jay Gambino MD R THIS REPORT IS [...] + + + +---------+ + + | Gerlaw-3 Fatty | CAPS, one capsule by | [...] | | | | | | [place] [address] | | | | | | [phone] | | | | | | | | +--------+ + + + + | 05/01/ | Procedure | Cardiology | | | | 2019 | visit | | | | +--------+ + + + + | 05/01/ | Office | Cardiology | Silvia, | | | 2019 | Visit | | [address] | | | | | | [place], | | | | | | [place] [address] | | | | | | [phone] | | | | | | | | +--------+ + + + + | 05/21/ | Implant | Cardiology | Daljit Singletary, | Remote Device | | 2019 | Monitor | | MD [place] | Interrogation | | | | | [place], | (Primary Dx); | | | | | [place] [address] | Pacemaker; | | | | | [phone] | Sinoatrial node | | | | [...] + + | [facility] | [address] | [place] [address] | | | [facility] | [...] + + | [facility] | [address] [place]. | [place] [address] | | | [facility] | | | | | LABORATORY | | | | + + + + + | [facility] | | | | | [facility] | | | | [...] + + | Glucose | 113 (H)Comment: Beninese | 65 - 99 mg/dL | [facility] | | | | Diabetes Association | [...] + + | [facility] | [address] | [place] [address] | | | HEART [facility] | | | | | LABORATORY | | | | + + + + + | [facility] | | | | | [facility]ART [facility] | | | | | LABORATORY | | | | + + + + + documented in this encounter Visit Diagnoses Not on filedocumented in this encounter"
--- OUTSIDE RECORDS SUMMARY | ~2020-04-13 | XMS | Encounter Summary ---
Demographics + + + | Address | [address] | | | [place] [address] | + + + | Home Phone [...] Providers + +------+ + | Care Optical Mechanic Apprentice Name | Role | Phone [...] Provider Unknown | | | | | [place], [place] | [phone] | | | | | [address] | | | | | | [phone] | | | +--------+ + + + [...] + + + +---------+ + + | [place]-3 Fatty | CAPS, one capsule by | [...] | | | | | | [place] [address] | | | | | | [phone] | | | | | | | | +--------+ + + + + | 05/01/ | Procedure | Cardiology | | | | 2019 | visit | | | | +--------+ + + + + | 05/01/ | Office | Cardiology | Silvia, | | | 2019 | Visit | | [address] | | | | | | [place], | | | | | | [place] [address] | | | | | | [phone] | | | | | | | | +--------+ + + + + | 05/21/ | Implant | Cardiology | Daljit Singletary, | Remote Device | 2019 | Monitor | | [address] [place] | Interrogation | | | | | [place], | (Primary Dx); | | | | | [place] [address] | Pacemaker; | | | | | [phone] | Sinoatrial node | | | | [...]
--- OUTSIDE RECORDS SUMMARY | ~2020-04-13 | XMS | Encounter Summary ---
Demographics + + + | Address | [address] | | | [place] [address] | + + + | Home Phone [...] Providers + +------+ + | Care Ball Holder Name | Role | Phone | + +------+ + PCP | Unavailable | + +------+ + Encounter Details +--------+ + + + + | Date | Type | Department | Care Team | Description | +--------+ + + + + | 02/01/ | [facility] | [facility] | Evan Gandara MD | | | 2008 - | Encounter | MED CTR MED ONC | [address] [facility] | | | | | [address] [place] | [place] | | | 02/06/ | | [place] [address] | [address] | | | 2008 | | [phone] | | | +--------+ + + + [...] W | | | | | | [place], | | | | | | [place] [address] | | | | | | [phone] | | | | | | | | +--------+ + + + + | 05/01/ | Procedure | Cardiology | | | | 2019 | visit | | | | +--------+ + + + + | 05/01/ | Office | Cardiology | Silvia | | | 2019 | Visit | | [address] [address] | | | | | | [place], | | | | | | [place] [address] | | | | | | [phone] | | | | | | | | +--------+ + + + + | 05/21/ | Implant | Cardiology | Daljit Singletary, | Remote Device | 2019 | Monitor | | MD [address] [place] | Interrogation | | | | | [place], | (Primary Dx); | | | | | [place] [address] | Pacemaker; | | | | | [phone] | Sinoatrial node | | | | | | dysfunction (HCC) | | | | | | with symptomatic | | | | | | bradycardia | +--------+ + + + + documented as of this encounter Visit Diagnoses Not on filedocumented in this encounter"
--- OUTSIDE RECORDS SUMMARY | ~2020-04-13 | XMS | Encounter Summary ---
Demographics + + + | Address | [address] | | | [place] [address] | + + + | Home Phone [...] Team Providers + +------+ + | Care Dietary Aide Teacher Name | Role | Phone | + +------+ + PCP | Unavailable | + +------+ + Encounter Details +--------+ + + + + | Date | Type | Department | Care Team | Description | +--------+ + + + + | 02/21/ | [facility] | [facility] | Geri Angel, | | | 2011 | Encounter | MED CTR XRAY [address] | OVERHEAD CLEANER MAINTAINER [address] [place] | | | | | [place] | St [place] | | | | | [place] [address] | [address] | | | | | [phone] | | | +--------+ + + + [...] | | | | | | [place], | | | | | | [place] [address] | | | | | | [phone] | | | | | | | | +--------+ + + + + | 05/01/ | Procedure | Cardiology | | | | 2019 | visit | | | | +--------+ + + + + | 05/01/ | Office | Cardiology | Silvia, | | | 2019 | Visit | | [address] [place] [address] | | | | | | [place], | | | | | | [place] [address] | | | | | | [phone] | | | | | | | | +--------+ + + + + | 05/21/ | Implant | Cardiology | Daljit Singletary, | Remote Device | | 2019 | Monitor | | [address] [place] | Interrogation | | | | | [place], | (Primary Dx); | | | | | [place] [address] | Pacemaker; | | | | | [phone] | Sinoatrial node | | | | | | dysfunction (HCC) | | | | | | with symptomatic | | | | | | bradycardia | +--------+ + + + + documented as of this encounter Visit Diagnoses Not on filedocumented in this encounter"
--- OUTSIDE RECORDS SUMMARY | ~2020-04-13 | XMS | Encounter Summary ---
Demographics + + + | Address | [address] | | | [place] [address] | + + + | Home Phone [...] Team Providers + +------+ + | Care Upper And Bottom Lacer Hand Name | Role | Phone | [...] + + | 07/12/ | Office | [facility] | Michael Amanda, | Preventative health | | 2013 | Visit | MEDICINE GALIEN | DO [address] | care (Primary Dx); | | | | [address] | [place], [place] | Prostate cancer | | | | [place], [place] | [address] | screening; | | | | [address] | | Hypercholesterolemia | | | | [phone] | | ; Hypertension; | | | [...] clear cause was found. He has seen jordan man and has a rechec k plan. Possible [...] | | | | | | [place] [address] | | | | | | [phone] | | | | | | | | +--------+ + + + + | 05/01/ | Procedure | Cardiology | | | 2019 | visit | | | | +--------+ + + + + | 05/01/ | Office | Cardiology | Silvia, | | | 2019 | Visit | | [address] | | | | | | [place], | | | | | | [place] [address] | | | | | | [phone] | | | | | | | | +--------+ + + + + | 05/21/ | Implant | Cardiology | Daljit Singletary, | Remote Device | 2019 | Monitor | | [address] [place] | Interrogation | | | | | [place], | (Primary Dx); | | | | | [place] [address] | Pacemaker; | | | | | [phone] | Sinoatrial node | | | | [...]
--- OUTSIDE RECORDS SUMMARY | ~2020-04-13 | XMS | Encounter Summary ---
Demographics + + + | Address | [address] | | | [place] [address] | + + + | Home Phone [...] Team Providers + +------+ + | Care Ivf Embryologist Name | Role | Phone | + [...] | 06/22/ | Telephone | [facility] | Vasiliy Michael Kelsey, | Eye Problem | | 2012 | | MEDICINE [place] | DO [address] | | | | | [address] | [place] | | | | | [place] | [address] | | | | | [address] | | | | | | [phone] | | | +--------+ + + + [...] | | | | | | [place] [address] | | | | | | [phone] | | | | | | | [...] | | | | | | [place] [address] | | | | | | [phone] | | | | | | | | +--------+ + + + + | 05/21/ | Implant | Cardiology | Daljit Singletary, | Remote Device | | 2019 | Monitor | | [address] [facility] | Interrogation | | | | | [place], | (Primary Dx); | | | | | [place] [address] | Pacemaker; | | | | | [phone] | Sinoatrial node | | | | | | dysfunction (HCC) | | | | | | with symptomatic | | | | | | bradycardia | +--------+ + + + + documented as of this encounter Visit Diagnoses Not on filedocumented in this encounter"
--- OUTSIDE RECORDS SUMMARY | ~2020-04-13 | XMS | Encounter Summary ---
Demographics + + + | Address | [address] | | | [place] [address] | + + + | Home Phone [...] Team Providers + +------+ + | Care Alarm Investigator Name | Role | Phone | [...] + | 08/23/ | Telephone | [facility] | AnshujohnsoncherelleDaljit, | Other (edema is | | 2015 | | CARDIOLOGY [address] | MD [address] [place] | blood clots) | | | | [place], | [place], | | | | | [place] [address] | [place] [address] | | | | | [phone] | [phone] | | | | | | | [...] | | | | | | [place] [address] | | | | | | [phone] | | | | | | | | +--------+ + + + + | 05/01/ | Procedure | Cardiology | | | | 2019 | visit | | | | +--------+ + + + + | 05/01/ | Office | Cardiology | Silvia, | | | 2019 | Visit | | [address] [place] [address] | | | | | | [place], | | | | | | [place] [address] | | | | | | [phone] | | | | | | | | +--------+ + + + + | 05/21/ | Implant | Cardiology | Daljit Singletary, | Remote Device | | 2020 | Monitor | | [address] [facility] | Interrogation | | | | | [place], | (Primary Dx); | | | | | [place] [address] | Pacemaker; | | | | | [phone] | Sinoatrial node | | | | | | dysfunction (HCC) | | | | | | with symptomatic | | | | | | bradycardia | +--------+ + + + + documented as of this encounter Visit Diagnoses Not on filedocumented in this encounter"
--- OUTSIDE RECORDS SUMMARY | ~2020-04-13 | XMS | Encounter Summary ---
Demographics + + + | Address | [address] | | | [place] [address] | + + + | Home Phone [...] Providers + +------+ + | Care Dental Appliance Repairer Name | Role | Phone | [...] 2019 | | GASTROENTEROLOGY | [address] [place], [place] | | | | | [address] [place] | [address] [place], [place] | | | | | [address] [place], [place] | [address] | | | | | [address] | | | | | | [phone] | | | +--------+ + + + [...] | | | | | | [place] [address] | | | | | | [phone] | | | | | | | | +--------+ + + + + | 05/01/ | Procedure | Cardiology | | | | 2019 | visit | | | | +--------+ + + + + | 05/01/ | Office | Cardiology | Silvia, | | | 2019 | Visit | | [address] [place] [address] | | | | | | [place], | | | | | | [place] [address] | | | | | | [phone] | | | | | | | | +--------+ + + + + | 05/21/ | Implant | Cardiology | Daljit Singletary, | Remote Device | 2019 | Monitor | | MD [place] | Interrogation | | | | | [place], | (Primary Dx); | | | | | [place] [address] | Pacemaker; | | | | | [phone] | Sinoatrial node | | | | | | dysfunction (HCC) | | | | | | with symptomatic | | | | | | bradycardia | +--------+ + + + + documented as of this encounter Visit Diagnoses Not on filedocumented in this encounter"
--- OUTSIDE RECORDS SUMMARY | ~2020-04-13 | XMS | Encounter Summary ---
Demographics + + + | Address | [address] | | | [place] [address] | + + + | Home Phone [...] Providers + +------+ + | Care Dry Kiln Operator Name | Role | Phone | [...] | | | | Sinoatrial | Geri, KEY CARRIER | [address] | | | | | node | [address] | [place], | | | | | dysfunction | [place] | [place] | | | | | (HCC) | [place], [place] | [address] | | | | | Coronary | [address] | Phone: | | | | | artery | Phone: | [phone] | | | | | disease | [phone] | Fax: | | | | | involving | Fax: | [phone] | | | | | [place] | [phone] | | | | | | coronary | | | | | | | artery of | | | | | | | [place] heart | | | | | | [...] | | | | | | Complete MD | | | | | | | ECHO HEART | | | | | | | XTHORACIC,[place] | | | | | | | MPLETE W | | | | | | | DOPPLER MD | | | | | | [...] | Visit | CARDIOLOGY [address] | KEY CARRIER [address] | dysfunction (HCC) | | | | [address] [place], | [place], [place] | with symptomatic | | | | [place] [address] | [address] | bradycardia (Primary | | | | [phone] | | Dx); Coronary | | | | | | artery disease | | | | | | involving the [place] | | | | | | coronary artery of | | | | | | [place] heart without | | | | | [...] the [place] coronary artery without angina pectoris Cannabis abuse, [...] 3rd dose, call 911 100 tablet 3 [place]-3 Fatty Acids (SALMON OIL-1000 PO) CAPS, one capsule by mouth daily twice daily ONE TOUCH DELICA LANCETS [facility] Check glucose as needed for hypoglycemia 100 [...] scanned Paceart documentation and device PDF in [employer] for interrogation (with progr amming changes) performed [...] to go back in 3 days to [place] for an attempt of ablation under general [...] I-II of [place] Heart Association functional class. T here are [...] this chart may have been created with [employer] voice recognition software. Occasi onal wrong-word [...] | | | | | | [place] [address] | | | | | | [phone] | | | | | | | | +--------+ + + + + | 05/01/ | Procedure | Cardiology | | | 2019 | visit | | | | +--------+ + + + + | 05/01/ | Office | Cardiology | Silvia, | | | 2019 | Visit | | [address] | | | | | | [address], | | | | | | [place] [address] | | | | | | [phone] | | | | | | | | +--------+ + + + + | 05/21/ | Implant | Cardiology | Sydni Singletary, | Remote Device | | 2019 | Monitor | | [address] [place] | Interrogation | | | | | [place], | (Primary Dx); | | | | | [place] [address] | Pacemaker; | | | | | [phone] | Sinoatrial node | | | | [...] (TTE) Demographics Patient Name VICTOR HUGO | [facility] | | [place] Room Number SARAH Patient | [facility] | | [id number] Date of Study 06/16/2016 Number | - IMAGING | | Visit Number [id number] | | | Referring Physician JOSE ARMANDO GARCIA Number Date of 1960 | | | Chicken Cutter LUIS FERNANDO DUARTE Age | | | 56 year(s) Interpreting | | | GURJIT TROY | | | Banquet Director SYDNI SINGLETARY, | | | Gender | | | Male Nurse Procedure Type of Study TTE | | | procedure: ECHO Complete. Procedure dateDate: 06/16/2016Start: 10:55 | | | AM Technical Quality: Adequate visualizationStudy Location: Echo | | | LabIndications: CAD [place] CORONARY ARTERY 414.01/ I25.10 and | | [...] BARRY Room Number SARAH | | Patient [id number] Date of Study 06/16/2016 Number Visit Number | | [id number] Referring Physician JOSE ARMANDO GARCIA Number | | Date of 1960 Chicken Cutter LUIS FERNANDO DUARTE Age | | 56 year(s) Interpreting GURJIT TROY | | Banquet Director SYDNI SINGLETARY, | | Gender Male NurseProcedureType of Study TTE | | procedure: ECHO Complete.Procedure dateDate: 06/16/2016Start: 10:55 AMTechnical Quality: | | Adequate visualizationStudy Location: Echo LabIndications: CAD [place] CORONARY ARTERY | | 414.01/ I25.10 and [...] ST[address] | [address] | [place], [place] | [phone] | | [facility] | | [address] | | | - IMAGING | | [...] | | 2. Coronary artery disease involving the [place] coronary artery of | | | [place] heart without angina pectoris I25.10 414.01 ECHO [...]
--- OUTSIDE RECORDS SUMMARY | ~2020-04-13 | XMS | Encounter Summary ---
Demographics + + + | Address | [address] | | | [place] [address] | + + + | Home Phone [...] Providers + +------+ + | Care Event Planner Name | Role | Phone | [...] | | CARDIOLOGY [address] | [address] | | | | | [place], | [place], | | | | | [place] [address] | [place] [address] | | | | | [phone] | [phone] | | | | | | | [...] W | | | | | | [place], | | | | | | [place] [address] | | | | | | [phone] | | | | | | | | +--------+ + + + + | 05/01/ | Procedure | Cardiology | | | | 2019 | visit | | | | +--------+ + + + + | 05/01/ | Office | Cardiology | Silvia, | | | 2019 | Visit | | [address] | | | | | | [place], | | | | | | [place] [address] | | | | | | [phone] | | | | | | | | +--------+ + + + + | 05/21/ | Implant | Cardiology | Daljit Singletary, | Remote Device | | 2019 | Monitor | | [address] [facility] | Interrogation | | | | | [place], | (Primary Dx); | | | | | [place] [address] | Pacemaker; | | | | | [phone] | Sinoatrial node | | | | | | dysfunction (HCC) | | | | | | with symptomatic | | | | | | bradycardia | +--------+ + + + + documented as of this encounter Visit Diagnoses Not on filedocumented in this encounter"
--- OUTSIDE RECORDS SUMMARY | ~2020-04-13 | XMS | Encounter Summary ---
Demographics + + + | Address | [address] | | | [place] [address] | + + + | Home Phone [...] Team Providers + +------+ + | Care Owner [employer] Name | Role | Phone | + [...] | | | | CENTER [address] | [address] [place], [place] | | | | | [place], [place] | [address] | | | | | [address] | | | | | | [phone] | | | +--------+ + + + [...] new doc you can try over at [facility] documented in this encounter Medications at Time [...] + + +---------+ + + | [place]-3 Fatty | CAPS, one capsule by | [...] W | | | | | | [place], | | | | | | [place] [address] | | | | | | [phone] | | | | | | | | +--------+ + + + + | 05/01/ | Procedure | Cardiology | | | | 2019 | visit | | | | +--------+ + + + + | 05/01/ | Office | Cardiology | Silvia, | | | 2019 | Visit | | [address] | | | | | | [place], | | | | | | [place] [address] | | | | | | [phone] | | | | | | | | +--------+ + + + + | 05/21/ | Implant | Cardiology | Daljit Singletary, | Remote Device | 2019 | Monitor | | MD [address] [place] | Interrogation | | | | | [place], | (Primary Dx); | | | | | [place] [address] | Pacemaker; | | | | | [phone] | Sinoatrial node | | | | [...]
--- OUTSIDE RECORDS SUMMARY | ~2020-04-13 | XMS | Encounter Summary ---
Demographics + + + | Address | [address] | | | [place] [address] | + + + | Home Phone [...] Team Providers + +------+ + | Care Class A Regional Truck Driver Name | Role | Phone | + +------+ + | Michael Amnada DO | PCP | | + +------+ [...] Refill | | 2013 | | [facility] [place] | DO [address] | | | | | [address] | [place] | | | | | [place] | [address] | | | | | [address] | | | | | | [phone] | | | +--------+--------+ + + + [...] W | | | | | | [place], | | | | | | [place] [address] | | | | | | [phone] | | | | | | | | +--------+ + + + + | 05/01/ | Procedure | Cardiology | | | | 2019 | visit | | | | +--------+ + + + + | 05/01/ | Office | Cardiology | Silvia, | | | 2019 | Visit | | [address] | | | | | | [place], | | | | | | [place] [address] | | | | | | [phone] | | | | | | | | +--------+ + + + + | 05/21/ | Implant | Cardiology | Daljit Singletary, | Remote Device | | 2019 | Monitor | | [address] [facility] | Interrogation | | | | | [place], | (Primary Dx); | | | | | [place] [address] | Pacemaker; | | | | | [phone] | Sinoatrial node | | | | | | dysfunction (HCC) | | | | | | with symptomatic | | | | | | bradycardia | +--------+ + + + + documented as of this encounter Visit Diagnoses Not on filedocumented in this encounter"
--- OUTSIDE RECORDS SUMMARY | ~2020-04-13 | XMS | Encounter Summary ---
Demographics + + + | Address | [address] | | | [place] [address] | + + + | Home Phone [...] Team Providers + +------+ + | Care Corrosion Prevention Metal Sprayer Name | Role | Phone | [...] | CARDIOLOGY [address] | [address] | Interrogation | | | | [place], | [place], | (Primary Dx); | | | | [place] [address] | [place] [address] | Presence of | | | | [phone] | [phone] | permanent cardiac | | | | [...] | | | | | | [place] [address] | | | | | | [phone] | | | | | | | | +--------+ + + + + | 05/01/ | Procedure | Cardiology | | | | 2019 | visit | | | | +--------+ + + + + | 05/01/ | Office | Cardiology | Silvia, | | | 2019 | Visit | | PARISA Vernon [address] | | | | | | [place], | | | | | | [place] [address] | | | | | | [phone] | | | | | | | | +--------+ + + + + | 05/21/ | Implant | Cardiology | Daljit Singletary, | Remote Device | 2019 | Monitor | | [facility] | Interrogation | | | | | [place], | (Primary Dx); | | | | | [place] [address] | Pacemaker; | | | | | [phone] | Sinoatrial node | | | | [...] remote PDF scanned into | | | [facility] for remote interrogation results. Data collected by [...]
--- OUTSIDE RECORDS SUMMARY | ~2020-04-13 | XMS | Encounter Summary ---
Demographics + + + | Address | [address] | | | [place] [address] | + + + | Home Phone [...] Providers + +------+ + | Care Felt Puller Name | Role | Phone | [...] [place] | | | | | [place] | | [address] Phone: | | | | | CYSTO/URETER | | [phone] | | | | | O | | Fax: | | | | | W/LITHOTRIPS | | [phone] | | | | | Y &INDWELL [...] | | | | | [address] | [place] | | | | | [place] | [address] | | | | | [address] | | | | | | [phone] | | | +--------+ + + + [...] +----+---+ + + | | 0 | [employer] Plant | | | | 8 | 43-degrees | | | | 2 | | | | | 7 | | | +----+---+ + + | | 0 | First | | | | 8 | Inc/Proc St | | | | 2 | | | | | 8 | | | +----+---+ + + | | 0 | [place] off | | | | 9 | [...] 04/13/19 1219 by | | eral | cngl-brs-oczorm catheter system; | Dominga Steen RN | [...] | | | | | | [place] [address] | | | | | | [phone] | | | | | | | | +--------+ + + + + | 05/01/ | Procedure | Cardiology | | | | 2019 | visit | | | | +--------+ + + + + | 05/01/ | Office | Cardiology | Silvia, | | | 2019 | Visit | | PARISA Vernon [address] | | | | | | [place], | | | | | | [place] [address] | | | | | | [phone] | | | | | | | | +--------+ + + + + | 05/21/ | Implant | Cardiology | Daljit Singletary, | Remote Device | | 2019 | Monitor | | MD [address] | Interrogation | | | | | [place], | (Primary Dx); | | | | | [place] [address] | Pacemaker; | | | | | [phone] | Sinoatrial node | | | | | | dysfunction ([facility]) | | | | | [...]
--- OUTSIDE RECORDS SUMMARY | ~2020-04-13 | XMS | Encounter Summary ---
Demographics + + + | Address | [address] | | | [place] [address] | + + + | Home Phone [...] Team Providers + +------+ + | Care Consultant Education Name | Role | Phone | [...] | | | | Sinoatrial | Geri, MARINE SERVICE MANAGER | [address] | | | | | node | [address] | [place], | | | | | dysfunction | [place] | [place] | | | | | (HCC) | [place], [place] | [address] | | | | | Coronary | [address] | Phone: | | | | | artery | Phone: | [phone] | | | | | disease | [phone] | Fax: | | | | | involving | Fax: | [phone] | | | | | [place] | [phone] | | | | | | coronary | | | | | | | artery of | | | | | | | [place] heart | | | | | | [...] | | | | | | Complete [place] | | | | | | | ECHO HEART | | | | | | | XTHORACIC,CO | | | | | | | MPLETE W | | | | | | | DOPPLER [place] | | | | | | | [...] | Visit | CARDIOLOGY [address] | MARINE SERVICE MANAGER [address] | dysfunction (HCC) | | | | [place], | [place], [place] | with symptomatic | | | | [place] [address] | [address] | bradycardia (Primary | | | | [phone] | | Dx); Coronary | | | | | | artery disease | | | | | | involving [place] | | | | | | coronary artery of | | | | | | [place] heart without | | | | | [...] Preventative health care Coronary artery disease involving [place] coronary artery without angina pectoris Cannabis abuse, [...] 3rd dose, call 911 100 tablet 3 [place]-3 Fatty Acids (SALMON OIL-1000 PO) CAPS, one capsule by mouth daily twice daily ONE TOUCH DELICA LANCETS [facility] Check glucose as [...] scanned Paceart documentation and device PDF in [employer] for interrogation (with progr amming changes) performed [...] to go back in 3 days to [place] for an attempt of ablation under general [...] dizziness. He is in class I-II of [place] Heart Association functional class. T here are [...] this chart may have been created with [employer] voice recognition software. Occasi onal wrong-word or [...] | | | | | | [place] [address] | | | | | | [phone] | | | | | | | | +--------+ + + + + | 05/01/ | Procedure | Cardiology | | | 2019 | visit | | | | +--------+ + + + + | 05/01/ | Office | Cardiology | Silvia, | | | 2019 | Visit | | [address] | | | | | | [place], | | | | | | [place] [address] | | | | | | [phone] | | | | | | | | +--------+ + + + + | 05/21/ | Implant | Cardiology | Sydni Singletary, | Remote Device | | 2019 | Monitor | | [address] [place] | Interrogation | | | | | [place], | (Primary Dx); | | | | | [place] [address] | Pacemaker; | | | | | [phone] | Sinoatrial node | | | | [...] (TTE) Demographics Patient Name VICTOR HUGO | [facility] | | [place] Room Number SARAH Patient | [facility] | | [id number] Date of Study 06/16/2016 Number | - IMAGING | | Visit Number [id number] | | | Referring Physician JOSE ARMANDO GARCIA Number Date of 1960 | | | Chief Accounting Officer LUIS FERNANDO DUARTE Age | | | 56 year(s) Interpreting | | | GURJIT TROY | | | Cable Rigger SYDNI SINGLETARY, | | | Gender | | | Male Nurse Procedure Type of Study TTE | | | procedure: ECHO Complete. Procedure dateDate: 06/16/2016Start: 10:55 | | | AM Technical Quality: Adequate visualizationStudy Location: Echo | | | LabIndications: CAD [place] CORONARY ARTERY 414.01/ I25.10 and | | [...] BARRY Room Number SARAH | | Patient [id number] Date of Study 06/16/2016 Number Visit Number | | [id number] Referring Physician JOSE ARMANDO GARCIA Number | | Date of 1960 Chief Accounting Officer LUIS FERNANDO DUARTE Age | | 56 year(s) Interpreting GURJIT TROY | | Cable Rigger SYDNI SINGLETARY, | | Gender Male NurseProcedureType of Study TTE | | procedure: ECHO Complete.Procedure dateDate: 06/16/2016Start: 10:55 AMTechnical Quality: | | Adequate visualizationStudy Location: Echo LabIndications: CAD [place] CORONARY ARTERY | | 414.01/ I25.10 and [...] + + | [address] | [address] | [place], [place] | [phone] | | [facility] | | [address] | | | - IMAGING | | [...] | | 2. Coronary artery disease involving [place] coronary artery of | | | [place] heart without angina pectoris I25.10 414.01 ECHO [...] + + | Coronary artery disease involving [place] coronary artery of [place] heart without | | angina pectoris | [...]
--- OUTSIDE RECORDS SUMMARY | ~2020-04-13 | XMS | Encounter Summary ---
Demographics + + + | Address | [address] | | | [place] [address] | + + + | Home Phone [...] Team Providers + +------+ + | Care Offshore Wind Turbine Technician Name | Role | Phone | [...] | | | DDD | Scotty C, PRODUCTION ENGINE REPAIRER | [facility] | | | | | (degenerativ | [address] | [facility] | | | | | e disc | [facility] | MEDICAL | | | | | disease), | [address] | CENTER [address] | | | | | lumbar | B | [address] | | | | | Chronic | [place], [place] | [place], | | | | | left-sided | [address] | [place] [address] | | | | | low back | Phone: | Phone: | | | | | pain with | [phone] | [phone] | | | | | left-sided | Fax: | Fax: | | | | | sciatica | [phone] | [phone] | | | | | History of [...] | | | DDD | Scotty C, PRODUCTION ENGINE REPAIRER | [address] | | | | | (degenerativ | [address] | [place], | | | | | e disc | [facility] | [place] [address] | | | | | disease), | DRIVE [address] | Phone: | | | | | lumbar | B | [phone] | | | | | Chronic | [place], [place] | Fax: | | | | | left-sided | [address] | [phone] | | | | | low back | Phone: | | | | | | pain with | [phone] | | | | | | left-sided | Fax: | | | | | | sciatica | [phone] | | | | | | History [...] + + | 07/01/ | Hospital | [facility] | Scotty Galdamez, | DDD (degenerative | | 2018 | Encounter | [facility] [address] | PRODUCTION ENGINE REPAIRER [address] [facility] | disc disease), | | | | [place], | [address] | lumbar; Chronic | | | | [place] [address] | [place] [address] | left-sided low back | | | | [phone] | [phone] | pain with left-sided | | | [...] + + + +---------+ + + | Many-3 Fatty | CAPS, one capsule by | [...] W | | | | | | [place], | | | | | | [place] [address] | | | | | | [phone] | | | | | | | | +--------+ + + + + | 05/01/ | Procedure | Cardiology | | | | 2019 | visit | | | | +--------+ + + + + | 05/01/ | Office | Cardiology | Silvia, | | | 2019 | Visit | | [address] | | | | | | [place], | | | | | | [place] [address] | | | | | | [phone] | | | | | | | | +--------+ + + + + | 05/21/ | Implant | Cardiology | Daljit Singletary, | Remote Device | | 2020 | Monitor | | [address] | Interrogation | | | | | [place], | (Primary Dx); | | | | | [place] [address] | Pacemaker; | | | | | [phone] | Sinoatrial node | | | | [...] + + | Performing | Address | City/[facility] | Phone Number | | [...]
--- OUTSIDE RECORDS SUMMARY | ~2020-04-13 | XMS | Encounter Summary ---
Demographics + + + | Address | [address] | | | [place] [address] | + + + | Home Phone [...] Team Providers + +------+ + | Care Mems Integration Engineer Name | Role | Phone | + +------+ + PCP | Unavailable | + +------+ + Encounter Details +--------+ + + + + | Date | Type | Department | Care Team | Description | +--------+ + + + + | 09/12/ | Hospital | [facility] | | | | 1993 | Encounter | MED CTR EMERGENCY | | | | | | CENTER [address] | | | | | | [place] | | | | | | [address] | | | | | | [phone] | | | +--------+ + + + [...] | | | | | | [place] [address] | | | | | | [phone] | | | | | | | | +--------+ + + + + | 05/01/ | Procedure | Cardiology | | | | 2019 | visit | | | | +--------+ + + + + | 05/01/ | Office | Cardiology | Silvia, | | | 2019 | Visit | | [address] | | | | | | [place], | | | | | | [place] [address] | | | | | | [phone] | | | | | | | | +--------+ + + + + | 05/21/ | Implant | Cardiology | Daljit Singletary, | Remote Device | 2019 | Monitor | | [address] [place] | Interrogation | | | | | [place], | (Primary Dx); | | | | | [place] [address] | Pacemaker; | | | | | [phone] | Sinoatrial node | | | | | | dysfunction (HCC) | | | | | | with symptomatic | | | | | | bradycardia | +--------+ + + + + documented as of this encounter Visit Diagnoses Not on filedocumented in this encounter"
--- OUTSIDE RECORDS SUMMARY | ~2020-04-13 | XMS | Encounter Summary ---
Demographics + + + | Address | [address] | | | [place] [address] | + + + | Home Phone [...] Team Providers + +------+ + | Care Ventilator Specialist Name | Role | Phone | [...] + + | 06/26/ | Office | [facility] | Geri Angel, | Coronary artery | | 2015 | Visit | CARDIOLOGY [address] | CAR AUDIO INSTALLER [address] | disease involving | | | | [place], | [facility] [place] | [place] coronary | | | | [place] [address] | [address] | artery without | | | | [phone] | | angina pectoris | | | [...] not occur with exertion. He went to [facility] at the end of for his [...] it. He is planning to travel to [facility] [place] the [place] near future for up to a month due to his cycvym-am-bbj having a significant stroke there MEDICAL, SURGICAL, [...] Preventative health care Coronary artery disease involving [place] coronary artery without angina pectoris Cannabis abuse, [...] by mouth Daily. 30 tabl et 6 [facility] Natural Products (OSTEO BI-FLEX/5-LOXIN ADVANCED PO) Take [...] 3rd dose, call 911 25 tablet 11 [place]-3 Fatty Acids (SALMON OIL-1000 PO) CAPS, one [...] Daily. 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 Leads: Right atrium and right ventricle (dual [...] arrhythmia performed by Dr. Gambino at [facility] on 01/30/2013. Patient had spontaneous PVCs [...] to go back in 3 days to [place] for an attempt of ablation under general [...] dizziness. He is in class I-II of [place] Heart Association functional class. T here are [...] this chart may have been created with [employer] voice recognition software. Occasi onal wrong-word or [...] W | | | | | | [place], | | | | | | [place] [address] | | | | | | [phone] | | | | | | | | +--------+ + + + + | 05/01/ | Procedure | Cardiology | | | | 2019 | visit | | | | +--------+ + + + + | 05/01/ | Office | Cardiology | Silvia, | | | 2019 | Visit | | [address] | | | | | | [place], | | | | | | [place] [address] | | | | | | [phone] | | | | | | | | +--------+ + + + + | 05/21/ | Implant | Cardiology | Daljit Singletary, | Remote Device | | 2020 | Monitor | | [address] [facility] | Interrogation | | | | | 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 Leads: Right atrium and right | | [...] + + | Coronary artery disease involving [place] coronary artery without angina pectoris - | | Primary | + + | SINUS BRADYCARDIA Sinoatrial node dysfunction | + + | Essential hypertension Unspecified essential hypertension | + + | Hyperlipidemia Other and unspecified hyperlipidemia | + + | Symptomatic PVCs Other premature beats | + + documented in this encounter
--- OUTSIDE RECORDS SUMMARY | ~2020-04-13 | XMS | Encounter Summary ---
Demographics + + + | Address | [address] | | | [place] [address] | + + + | Home Phone [...] Team Providers + +------+ + | Care Boiler Shop Mechanic Name | Role | Phone | + +------+ + PCP | Unavailable | + +------+ + Encounter Details +--------+ + + + + | Date | Type | Department | Care Team | Description | +--------+ + + + + | 01/21/ | Emergency | [facility] | Kirill Dominique | Unspecified Chest | | 2009 | | [facility]ENTER | MD Jonas [address] | Pain | | | | EMERGENCY CENTER | [address] [place] | | | | | [address] | [address] | | | | | [place] | [phone] | | | | | [address] | | | | | | [phone] | | | +--------+ + + + [...] W | | | | | | [place], | | | | | | [place] [address] | | | | | | [phone] | | | | | | | | +--------+ + + + + | 05/01/ | Procedure | Cardiology | | | | 2019 | visit | | | | +--------+ + + + + | 05/01/ | Office | Cardiology | Silvia, | | | 2019 | Visit | | PARISA Vernon W | | | | | | [place], | | | | | | [place] [address] | | | | | | [phone] | | | | | | | | +--------+ + + + + | 05/21/ | Implant | Cardiology | Daljit Singletary, | Remote Device | | 2019 | Monitor | | [address] | Interrogation | | | | | [place], | (Primary Dx); | | | | | [place] [address] | Pacemaker; | | | | | [phone] | Sinoatrial node | | | | [...]
--- OUTSIDE RECORDS SUMMARY | ~2020-04-13 | XMS | Encounter Summary ---
Demographics + + + | Address | [address] | | | [place] [address] | + + + | Home Phone [...] Providers + +------+ + | Care House Parent Name | Role | Phone | + [...] + | 06/02/ | Telephone | [facility] | Daljit Singletary, | Other (symptoms) | | 2019 | | CARDIOLOGY [address] | MD [address] [place] | | | | | [place], | [place], | | | | | [place] [address] | [place] [id number] | | | | | [phone] | [phone] | | | | | | | [...] | | | | | | [place] [address] | | | | | | [phone] | | | | | | | | +--------+ + + + + | 05/01/ | Procedure | Cardiology | | | | 2019 | visit | | | | +--------+ + + + + | 05/01/ | Office | Cardiology | Silvia, | | | 2019 | Visit | | PARISA Vernon W | | | | | | [place], | | | | | | [place] [address] | | | | | | [phone] | | | | | | | | +--------+ + + + + | 05/21/ | Implant | Cardiology | Daljit Singletary, | Remote Device | 2019 | Monitor | | MD [address]iquis [address] | Interrogation | | | | | [place], | (Primary Dx); | | | | | [place] [id number] | Pacemaker; | | | | | [phone] | Sinoatrial node | | | | | | dysfunction (HCC) | | | | | | with symptomatic | | | | | | bradycardia | +--------+ + + + + documented as of this encounter Visit Diagnoses Not on filedocumented in this encounter"
--- OUTSIDE RECORDS SUMMARY | ~2020-04-13 | XMS | Encounter Summary ---
Demographics + + + | Address | [address] [place] [address] [address] | | | [place] [address] | + + + | Home Phone [...] + + | Author | [facility] | + + + | Organization | [facility] | + + + | Address | Unknown | + + + | Phone | Unavailable | + + + Support + + + + + | Name | Relationship | Address | Phone | + + + + + | Rachel Valencia | ELIEZER | [place] | | | | | [address] | | + + + + + Care Team Providers + +------+ + | Care Mineralogy Teacher Name | Role | Phone | [...] | | | [address] | [place], [place] | | | | | Mailcode: Center | [address] | | | | | for Health and | [phone] | | | | | [facility], [facility] 2 | | | | | | [place], [place] | | | | | | [address] | | | | | | [phone] | | | +--------+ + + + [...]
--- OUTSIDE RECORDS SUMMARY | ~2020-04-13 | XMS | Encounter Summary ---
Demographics + + + | Address | [address] | | | [place] [address] | + + + | Home Phone [...] Providers + +------+ + | Care Radio Electronics Officer Name | Role | Phone | [...] Refill | | 2011 | | [facility] [place] | DO [address] | | | | | [address] | [place] | | | | | [place] | [address] | | | | | [address] | | | | | | [phone] | | | +--------+--------+ + + + [...] | | 2019 | | | PARISA Veronn [address] | | | | | | [place], | | | | | | [place] [address] | | | | | | [phone] | | | | | | | | +--------+ + + + + | 05/01/ | Procedure | Cardiology | | | | 2019 | visit | | | | +--------+ + + + + | 05/01/ | Office | Cardiology | Silvia, | | | 2019 | Visit | | PARISA Vernon W | | | | | | [place], | | | | | | [place] [address] | | | | | | [phone] | | | | | | | | +--------+ + + + + | 05/21/ | Implant | Cardiology | Daljit Singletary, | Remote Device | 2019 | Monitor | | [address] [place] | Interrogation | | | | | [place], | (Primary Dx); | | | | | [place] [address] | Pacemaker; | | | | | [phone] | Sinoatrial node | | | | [...]
--- OUTSIDE RECORDS SUMMARY | ~2020-04-13 | XMS | Encounter Summary ---
Demographics + + + | Address | [address] | | | [place] [address] | + + + | Home Phone [...] Team Providers + +------+ + | Care Osha Inspector Name | Role | Phone | + +------+ + PCP | Unavailable | + +------+ + Encounter Details +--------+ + + + + | Date | Type | Department | Care Team | Description | +--------+ + + + + | 06/13/ | [facility] | [facility] | Daljit Singletary, | | | 2008 | Encounter | MED CTR LABORATORY | [address] [place] | | | | | [address] [place] | [place], | | | | | [place] | [place] [address] | | | | | [address] | [phone] | | | | | [phone] | | | +--------+ + + + [...] W | | | | | | [place], | | | | | | [place] [address] | | | | | | [phone] | | | | | | | | +--------+ + + + + | 05/01/ | Procedure | Cardiology | | | | 2019 | visit | | | | +--------+ + + + + | 05/01/ | Office | Cardiology | Silvia | | | 2019 | Visit | | PARISA Vernon [address] | | | | | | [place], | | | | | | [place] [address] | | | | | | [phone] | | | | | | | | +--------+ + + + + | 05/21/ | Implant | Cardiology | Daljit Singletary, | Remote Device | 2019 | Monitor | | MD [address] [place] | Interrogation | | | | | [place], | (Primary Dx); | | | | | [place] [address] | Pacemaker; | | | | | [phone] | Sinoatrial node | | | | | | dysfunction (HCC) | | | | | | with symptomatic | | | | | | bradycardia | +--------+ + + + + documented as of this encounter Visit Diagnoses Not on filedocumented in this encounter"
--- OUTSIDE RECORDS SUMMARY | ~2020-04-13 | XMS | Encounter Summary ---
Demographics + + + | Address | [address] | | | [place] [address] | + + + | Home Phone [...] Team Providers + +------+ + | Care Radon Inspector Name | Role | Phone | [...] [place] | | | | | | [address] | | | | | | [phone] | | | +--------+ + + + [...] + + + +---------+ + + | [place]-3 Fatty | CAPS, one capsule by [...] | | | | | | [place] [address] | | | | | | [phone] | | | | | | | | +--------+ + + + + | 05/01/ | Procedure | Cardiology | | | | 2019 | visit | | | | +--------+ + + + + | 05/01/ | Office | Cardiology | Silvia, | | | 2019 | Visit | | PARISA Vernon [address] | | | | | | [place], | | | | | | [place] [address] | | | | | | [phone] | | | | | | | | +--------+ + + + + | 05/21/ | Implant | Cardiology | Daljit Singletary, | Remote Device | 2019 | Monitor | | [facility] | Interrogation | | | | | [place], | (Primary Dx); | | | | | [place] [address] | Pacemaker; | | | | | [phone] | Sinoatrial node | | | | [...]
--- OUTSIDE RECORDS SUMMARY | ~2020-04-13 | XMS | Encounter Summary ---
Demographics + + + | Address | [address] | | | [place] [address] | + + + | Home Phone [...] Providers + +------+ + | Care Electric Motors Salesperson Name | Role | Phone | [...] | CARDIOLOGY [address] | [address] | Interrogation | | | | [place], | [place], | (Primary Dx); | | | | [place] [address] | [place] [address] | Presence of | | | | [phone] | [phone] | permanent cardiac | | | | [...] | | | | | | [place] [address] | | | | | | [phone] | | | | | | | | +--------+ + + + + | 05/01/ | Procedure | Cardiology | | | | 2019 | visit | | | | +--------+ + + + + | 05/01/ | Office | Cardiology | Silvia, | | | 2019 | Visit | | PARISA Vernon [address] | | | | | | [place], | | | | | | [place] [address] | | | | | | [phone] | | | | | | | | +--------+ + + + + | 05/21/ | Implant | Cardiology | Daljit Singletary, | Remote Device | | 2019 | Monitor | | [address] [place] | Interrogation | | | | | [place], | (Primary Dx); | | | | | [place] [address] | Pacemaker; | | | | | [phone] | Sinoatrial node | | | | [...] Daljit | PACEART | | MD Gemini 11/13/2019 2:23 PMDate of Remote Interrogation: | | | 11/06/19 Refer to Paceart documentation and remote PDF scanned into | | | [facility] for remote interrogation results. Data collected [...]
--- OUTSIDE RECORDS SUMMARY | ~2020-04-13 | XMS | Encounter Summary ---
Demographics + + + | Address | [address] [place] [address] [address] | | | [place] [address] | + + + | Home Phone [...] [place] | | | | | [address] | | + + + + + Care Team Providers + +------+ + | Care Studio Assistant Name | Role | Phone | [...] | | | [address] | [facility] [place] | ED) | | | | Mailcode: Center | [address] | | | | | for Health and | [phone] | | | | | [facility], [facility] 2 | | | | | | [place], [place] | | | | | | [address] | | | | | | [phone] | | | +--------+ + + + [...]
--- OUTSIDE RECORDS SUMMARY | ~2020-04-13 | XMS | Encounter Summary ---
Demographics + + + | Address | [address] | | | [place] [address] | + + + | Home Phone [...] Providers + +------+ + | Care Master Tax Advisor Name | Role | Phone | [...] 2019 | | GASTROENTEROLOGY | [address], [place] | | | | | [address] [place] | [address] [place], [place] | | | | | [address] [place], [place] | [address] | | | | | [address] | | | | | | [phone] | | | +--------+--------+ + + + [...] | | | | | | [place] [address] | | | | | | [phone] | | | | | | | | +--------+ + + + + | 05/01/ | Procedure | Cardiology | | | | 2019 | visit | | | | +--------+ + + + + | 05/01/ | Office | Cardiology | Silvia, | | | 2019 | Visit | | PARISA Vernon [address] | | | | | | [place], | | | | | | [place] [address] | | | | | | [phone] | | | | | | | | +--------+ + + + + | 05/21/ | Implant | Cardiology | Daljit Singletary, | Remote Device | 2019 | Monitor | | [address] [facility] | Interrogation | | | | | [place], | (Primary Dx); | | | | | [place] [address] | Pacemaker; | | | | | [phone] | Sinoatrial node | | | | | | dysfunction (HCC) | | | | | | with symptomatic | | | | | | bradycardia | +--------+ + + + + documented as of this encounter Visit Diagnoses Not on filedocumented in this encounter"
--- OUTSIDE RECORDS SUMMARY | ~2020-04-13 | XMS | Encounter Summary ---
Demographics + + + | Address | [address] | | | [place] [address] | + + + | Home Phone [...] Providers + +------+ + | Care Medical Billing Assistant Name | Role | Phone | [...] + | 06/27/ | Telephone | [facility] | Michael Amanda, | ED Follow-up (s/p | | 2014 | | MEDICINE [place] | DO [address] | [facility]) | | | | [address] | [place] | | | | | [place] | [address] | | | | | [address] | | | | | | [phone] | | | +--------+ + + + [...] W | | | | | | [place], | | | | | | [place] [address] | | | | | | [phone] | | | | | | | | +--------+ + + + + | 05/01/ | Procedure | Cardiology | | | | 2019 | visit | | | | +--------+ + + + + | 05/01/ | Office | Cardiology | Silvia, | | | 2019 | Visit | | PARISA Vernon [address] | | | | | | [place], | | | | | | [place] [address] | | | | | | [phone] | | | | | | | | +--------+ + + + + | 05/21/ | Implant | Cardiology | Daljit Singletary, | Remote Device | | 2019 | Monitor | | [facility] | Interrogation | | | | | [place], | (Primary Dx); | | | | | [place] [address] | Pacemaker; | | | | | [phone] | Sinoatrial node | | | | | | dysfunction (HCC) | | | | | | with symptomatic | | | | | | bradycardia | +--------+ + + + + documented as of this encounter Visit Diagnoses Not on filedocumented in this encounter"
--- OUTSIDE RECORDS SUMMARY | ~2020-04-13 | XMS | Encounter Summary ---
Demographics + + + | Address | [address] | | | [place] [address] | + + + | Home Phone [...] Providers + +------+ + | Care Cable Rigger Name | Role | Phone | [...] | [place] | [place] | | | | | [address] | [address] | | | | | [phone] | | | +--------+ + + + [...] | | | | | | [place] [address] | | | | | | [phone] | | | | | | | | +--------+ + + + + | 05/01/ | Procedure | Cardiology | | | | 2019 | visit | | | | +--------+ + + + + | 05/01/ | Office | Cardiology | Silvia, | | | 2019 | Visit | | PARISA Vernon [address] | | | | | | [place], | | | | | | [place] [address] | | | | | | [phone] | | | | | | | | +--------+ + + + + | 05/21/ | Implant | Cardiology | Daljit Singletary, | Remote Device | | 2019 | Monitor | | [address] [place] | Interrogation | | | | | [place], | (Primary Dx); | | | | | [place] [address] | Pacemaker; | | | | | [phone] | Sinoatrial node | | | | | | dysfunction ([facility]) | | | | | | with symptomatic | | | | | | bradycardia | +--------+ + + + + documented as of this encounter Visit Diagnoses Not on filedocumented in this encounter"
--- OUTSIDE RECORDS SUMMARY | ~2020-04-13 | XMS | Encounter Summary ---
Demographics + + + | Address | [address] | | | [place] [address] | + + + | Home Phone [...] Providers + +------+ + | Care Live Source Operator Name | Role | Phone | [...] | | CARDIOLOGY [address] | Janeen MACHINE SHOP REPAIR TECHNICIAN [address] | mixed | | | | [place], | [place], | | | | | [place] [address] | [place] [address] | | | | | [phone] | [phone] | | | | | | | [...] | | | | | | [place], | | | | | | [place] [address] | | | | | | [phone] | | | | | | | | +--------+ + + + + | 05/01/ | Procedure | Cardiology | | | | 2019 | visit | | | | +--------+ + + + + | 05/01/ | Office | Cardiology | Silvia, | | | 2019 | Visit | | PARISA Vernon W | | | | | | [place], | | | | | | [place] [address] | | | | | | [phone] | | | | | | | | +--------+ + + + + | 05/21/ | Implant | Cardiology | Daljit Singletary, | Remote Device | | 2020 | Monitor | | MD [address]iqu[address] | Interrogation | | | | | [place], | (Primary Dx); | | | | | [place] [address] | Pacemaker; | | | | | [phone] | Sinoatrial node | | | | [...]
--- OUTSIDE RECORDS SUMMARY | ~2020-04-13 | XMS | Encounter Summary ---
Demographics + + + | Address | [address] | | | [place] [address] | + + + | Home Phone [...] Providers + +------+ + | Care Compensation Advisor Name | Role | Phone | [...] [address] | | | | | | [place], [place] | (Fax) | | | | | [address] | | | | | | [phone] | | | +--------+ + + + [...] | | | | | | [place] [address] | | | | | | [phone] | | | | | | | | +--------+ + + + + | 05/01/ | Procedure | Cardiology | | | | 2019 | visit | | | | +--------+ + + + + | 05/01/ | Office | Cardiology | Silvia, | | | 2019 | Visit | | PARISA Vernon [address] | | | | | | [place], | | | | | | [place] [address] | | | | | | [phone] | | | | | | | | +--------+ + + + + | 05/21/ | Implant | Cardiology | Daljit Singletary, | Remote Device | | 2019 | Monitor | | [address] [place] | Interrogation | | | | | [place], | (Primary Dx); | | | | | [place] [address] | Pacemaker; | | | | | [phone] | Sinoatrial node | | | | | | dysfunction (HCC) | | | | | | with symptomatic | | | | | | bradycardia | +--------+ + + + + documented as of this encounter Visit Diagnoses Not on filedocumented in this encounter"
--- OUTSIDE RECORDS SUMMARY | ~2020-04-13 | XMS | Encounter Summary ---
Demographics + + + | Address | [address] | | | [place] [address] | + + + | Home Phone [...] Team Providers + +------+ + | Care Lastex Operator Name | Role | Phone | [...] + + | 06/18/ | Emergency | [facility] | Dom Graham, | Cervical pain (neck) | | 2013 | | MED CTR EMERGENCY | MD [address] | (Primary Dx); | | | | CENTER [address] | [place] | Paresthesia and pain | | | | [place], [place] | [address] | of both upper | | | | [address] | | extremities | | | | [phone] | | | +--------+ + + + [...] cannot be sent through Care Everywhere.PARAESTHESIAS ( [place])NECK SPRAIN/STRAIN ([place])documented in this encounter Medications at Time of [...] + + + +---------+ + + | [place]-3 Fatty | CAPS, one capsule by | [...] W | | | | | | [place], | | | | | | [place] [address] | | | | | | [phone] | | | | | | | | +--------+ + + + + | 05/01/ | Procedure | Cardiology | | | | 2019 | visit | | | | +--------+ + + + + | 05/01/ | Office | Cardiology | Silvia, | | | 2019 | Visit | | PARISA Vernon [address] | | | | | | [place], | | | | | | [place] [address] | | | | | | [phone] | | | | | | | | +--------+ + + + + | 05/21/ | Implant | Cardiology | Daljit Singletary, | Remote Device | | 2019 | Monitor | | MD [address] [place] | Interrogation | | | | | [place], | (Primary Dx); | | | | | [place] [address] | Pacemaker; | | | | | [phone] | Sinoatrial node | | | | [...] + | MISCELLANEOUS LAB | | | [phone] | + +---------+ + + | MISCELANIOUS LAB | | | [phone] | + +---------+ + + documented in this encounter Visit Diagnoses + + | Diagnosis | + + | Cervical pain (neck) - Primary Cervicalgia | + + | Paresthesia and pain of both upper extremities Disturbance of skin sensation | + + documented in this encounter
--- OUTSIDE RECORDS SUMMARY | ~2020-04-13 | XMS | Encounter Summary ---
Demographics + + + | Address | [address] | | | [place] [address] | + + + | Home Phone [...] Providers + +------+ + | Care Metal Fabricating Inspector Name | Role | Phone | [...] Provider Unknown | | | | | [place], [place] | [phone] | | | | | [address] | | | | | | [phone] | | | +--------+ + + + [...] + + + +---------+ + + | [place]-3 Fatty | CAPS, one capsule by | [...] | | | | | | | #[id number], exp 07/2016 | | | | | [...] | | | | | | [place] [address] | | | | | | [phone] | | | | | | | | +--------+ + + + + | 05/01/ | Procedure | Cardiology | | | | 2019 | visit | | | | +--------+ + + + + | 05/01/ | Office | Cardiology | Silvia, | | | 2019 | Visit | | PARISA Vernon [address] | | | | | | [place], | | | | | | [place] [address] | | | | | | [phone] | | | | | | | | +--------+ + + + + | 05/21/ | Implant | Cardiology | Daljit Singletary, | Remote Device | | 2020 | Monitor | | [address] [place] | Interrogation | | | | | [place], | (Primary Dx); | | | | | [place] [address] | Pacemaker; | | | | | [phone] | Sinoatrial node | | | | [...]
--- OUTSIDE RECORDS SUMMARY | ~2020-04-13 | XMS | Encounter Summary ---
Demographics + + + | Address | [address] | | | [place] [address] | + + + | Home Phone [...] Providers + +------+ + | Care Automotive Services Manager Name | Role | Phone | + +------+ + PCP | Unavailable | + +------+ + Encounter Details +--------+ + + + + | Date | Type | Department | Care Team | Description | +--------+ + + + + | 11/14/ | [facility] | [facility] | William Hirsch | | | 1999 | Encounter | MED CTR EMERGENCY | MD Cristobal [address] | | | | | CENTER [address] [place] | [address] | | | | | [place] | [place] [address] | | | | | [address] | [phone] | | | | | [phone] | | | +--------+ + + + [...] | | | | | | [place], | | | | | | [place] [address] | | | | | | [phone] | | | | | | | | +--------+ + + + + | 05/01/ | Procedure | Cardiology | | | | 2019 | visit | | | | +--------+ + + + + | 05/01/ | Office | Cardiology | Silvia, | | | 2019 | Visit | | PARISA Vernon [address] | | | | | | [place], | | | | | | [place] [address] | | | | | | [phone] | | | | | | | | +--------+ + + + + | 05/21/ | Implant | Cardiology | Daljit Singletary, | Remote Device | | 2019 | Monitor | | MD [address] [place] | Interrogation | | | | | [place], | (Primary Dx); | | | | | [place] [address] | Pacemaker; | | | | | [phone] | Sinoatrial node | | | | | | dysfunction (HCC) | | | | | | with symptomatic | | | | | | bradycardia | +--------+ + + + + documented as of this encounter Visit Diagnoses Not on filedocumented in this encounter"
--- OUTSIDE RECORDS SUMMARY | ~2020-04-13 | XMS | Encounter Summary ---
Demographics + + + | Address | [address] | | | [place] [address] | + + + | Home Phone [...] Team Providers + +------+ + | Care Websphere Commerce Developer Name | Role | Phone | [...] | | CARDIOLOGY [address] | Janeen HOSPITALITY RECRUITER [address] | | | | | [place], | [place], | | | | | [place] [address] | [place] [address] | | | | | [phone] | [phone] | | | | | | | [...] W | | | | | | [place], | | | | | | [place] [address] | | | | | | [phone] | | | | | | | | +--------+ + + + + | 05/01/ | Procedure | Cardiology | | | | 2019 | visit | | | | +--------+ + + + + | 05/01/ | Office | Cardiology | Silvia, | | | 2019 | Visit | | PARISA Vernon [address] | | | | | | [place], | | | | | | [place] [address] | | | | | | [phone] | | | | | | | | +--------+ + + + + | 05/21/ | Implant | Cardiology | Daljit Singletary, | Remote Device | | 2019 | Monitor | | [facility] | Interrogation | | | | | [place], | (Primary Dx); | | | | | [place] [address] | Pacemaker; | | | | | [phone] | Sinoatrial node | | | | | | dysfunction (HCC) | | | | | | with symptomatic | | | | | | bradycardia | +--------+ + + + + documented as of this encounter Visit Diagnoses Not on filedocumented in this encounter"
--- OUTSIDE RECORDS SUMMARY | ~2020-04-13 | XMS | Encounter Summary ---
Demographics + + + | Address | [address] | | | [place] [address] | + + + | Home Phone [...] Team Providers + +------+ + | Care Prepared Foods Supervisor Name | Role | Phone | + +------+ + | Kirk French MD | PCP | | + +------+ + Encounter Details +--------+ + + + + | Date | Type | Department | Care Team | Description | +--------+ + + + + | 11/17/ | Telephone | [facility] | Kirk French | | | 2019 | | GERALDINE Guidry MD [address] | | | | | PRIMARY CARE [address] | | | | | [address] | [place] [address] | | | | | [place], [place] | [phone] | | | | | [address] | | | | | | [phone] | | | +--------+ + + + [...] | | | | | | [place] [address] | | | | | | [phone] | | | | | | | | +--------+ + + + + | 05/01/ | Procedure | Cardiology | | | | 2019 | visit | | | | +--------+ + + + + | 05/01/ | Office | Cardiology | Silvia, | | | 2019 | Visit | | PARISA Vrenon [address] | | | | | [place], | | | | | | [place] [address] | | | | | | [phone] | | | | | | | | +--------+ + + + + | 05/21/ | Implant | Cardiology | Daljit Singletary, | Remote Device | | 2019 | Monitor | | [address] [facility] [place] | Interrogation | | | | | [place], | (Primary Dx); | | | | | [place] [id number] | Pacemaker; | | | | | [phone] | Sinoatrial node | | | | | | dysfunction (HCC) | | | | | | with symptomatic | | | | | | bradycardia | +--------+ + + + + documented as of this encounter Visit Diagnoses Not on filedocumented in this encounter"
--- OUTSIDE RECORDS SUMMARY | ~2020-04-13 | XMS | Encounter Summary ---
Demographics + + + | Address | [address] | | | [place] [address] | + + + | Home Phone [...] Providers + +------+ + | Care Sap Security Consultant Name | Role | Phone | [...] [place] | | | | | | [address] | | | | | | [phone] | | | +--------+ + + + [...] | | | | | | [place] [address] | | | | | | [phone] | | | | | | | [...] | | | | | | [place] [address] | | | | | | [phone] | | | | | | | | +--------+ + + + + | 05/21/ | Implant | Cardiology | Daljit Singletary, | Remote Device | | 2019 | Monitor | | [facility] | Interrogation | | | | | [address], | (Primary Dx); | | | | | [place] [address] | Pacemaker; | | | | | [phone] | Sinoatrial node | | | | | | dysfunction (HCC) | | | | | | with symptomatic | | | | | | bradycardia | +--------+ + + + + documented as of this encounter Visit Diagnoses Not on filedocumented in this encounter"
--- OUTSIDE RECORDS SUMMARY | ~2020-04-13 | XMS | Encounter Summary ---
Demographics + + + | Address | [address] [place] [address] [address] | | | [place] [address] | + + + | Home Phone [...] [place] | | | | | [address] | | + + + + + Care Team Providers + +------+ + | Care Chauffeur Name | Role | Phone | + [...] Center at [facility] [address] | [facility] | (capsule referral) | | | | [address] | [address] [place], [place] | | | | | Mailcode: Center | [address] | | | | | for Health and | | | | | | [facility], [facility] 2 | | | | | | [place], [place] | | | | | | [address] | | | | | | [phone] | | | +--------+ + + + [...]
--- OUTSIDE RECORDS SUMMARY | ~2020-04-13 | XMS | Encounter Summary ---
Demographics + + + | Address | [address] | | | [place] [address] | + + + | Home Phone [...] + + | 05/24/ | Hospital | [facility] | Chi Fang | Unspecified Chest | | 2008 - | Encounter | [facility] | MD Kelsey [address] | Pain | | | | CLINICAL DECISION | [place] HERNANDEZ | | | 05/25/ | | [address] | [address] | | | 2008 | | [place], [place] | [phone] | | | | | [address] | | | | | | [phone] | | | +--------+ + + + [...] W | | | | | | [place], | | | | | | [place] [address] | | | | | | [phone] | | | | | | | | +--------+ + + + + | 05/01/ | Procedure | Cardiology | | | | 2019 | visit | | | | +--------+ + + + + | 05/01/ | Office | Cardiology | Silvia, | | | 2019 | Visit | | PARISA Vernon [address] | | | | | | [place], | | | | | | [place] [address] | | | | | | [phone] | | | | | | | | +--------+ + + + + | 05/21/ | Implant | Cardiology | Daljit Singletary, | Remote Device | 2019 | Monitor | | MD [address] [place] | Interrogation | | | | | [place], | (Primary Dx); | | | | | [place] [address] | Pacemaker; | | | | | [phone] | Sinoatrial node | | | | [...] Performed At | + + + | [id number] | | | Page 1 RADIOLOGY | | | [facility] [address]/ | | | OPO [facility] | | | CENTER NAME: [place] [address] | | | | | | | | | DATE OF : 1960 ORDER NUMBER: | | | [id number] EXAM DATE/TIME: 05/25/2009 08:00 A ORDERING PHYSICIAN: [...] | | administration of 14.9 mCi of nribgtuenv-10f-dvhvjzc Myoview. Stress | | | images postinjection [...] | | | images. Prone images demonstrate jewish of the inferior wall | | | [...] | | A P | | | TSG/earlene/[id number]/ cc: MD FEMI FOSS, | | | MD AMY SULLIVAN, DO | | + + + + + | Procedure Note | + + | Kalpesh Brown - 07/17/2019 2:13 AM PDT | | [id number] Page 1 | | RADIOLOGY CDU 38227/ | | OPO | | [facility] NAME: [address] | | [place] [address] | | | | DATE OF : 1960 | | | | ORDER NUMBER: [id number] | | EXAM DATE/TIME: 05/25/2009 08:00 A [...] administration of 14.9 mCi | | of gpdotvsrmo-46b-yxfxiwa Myoview. Stress images postinjection of 47.7 | [...] | | | | Prone images demonstrate jewish of the inferior wall nicely. | | [...] | A | | P | | TSG/dc/[id number]/ | | cc: ANGELA MARADIAGA MD | | FEMI MARIE MD | | CHI FANG MD | | AMY BANEGAS DO | + + ECHO Complete (05/25/2009 7:50 AM PDT) + + | Specimen | + + | | + + + + + | Narrative | Performed At | + + + | [id number] | | | Page 1 ECHO [facility] NAME: | | | [place] [address] MEDICAL RECORD #: | | | [id number] | | | DATE OF : 1960 ORDER | | | NUMBER: [id number] EXAM DATE/TIME: 05/25/2009 07:34 PERFORMING | | [...] Excursion: | | | 1.89 cm E-F Barber: 0.08 m/s HR: 43.51 BPM AV maxP.11 [...] | | | 0.33 m/s TV Dec Barber: 1.73 m/s2 TV Dec Time: 344.24 ms TV | | | E Bravo: 0.59 m/s TV E/A Ratio: 1.80 TV maxP.40 mmHg TV | | | meanP.44 mmHg TV Vmax: 0.59 m/s TV Vmean: 0.30 m/s TV | | | VTI: 22.88 cm Automatic Door Mechanic: ANTHONY Authenticated by: Edwardo Tee | | | Carlos WINKLER Report Date/Time: 05-25-2009 10:19:52 | | + + + + + | Procedure Note | + + | Kalpesh Brown - 07/17/2019 2:13 AM PDT [id number] | | Page [address] [place] [address] NAME: [place], [place] | | [address] : ACCOUNT #: | | [id number]: DATE OF : 1960ORDER NUMBER: | | [id number] DATE/TIME: 05/25/2009 07:34PERFORMING PHYSICIAN: Edwardo Gonzalez | [...] mlLAESV Index (A-L): 26.03 ml/m2LAAs A2C: 14.93 [id number] A-L | | A2C: 44.50 mlLALs A2C: 4.25 cmLAAs A4C: 18.42 [id number] A-L A4C: 55.79 mlLALs | | A4C: 5.16 cmAo Diam: 3.91 cmAV Cusp: 2.23 cmLA Diam: 3.79 cmLA/Ao: 0.96%FS: | | 43.37 %EDV(Teich): 146.19 mlEF(Teich): 73.99 %ESV(Teich): 38.01 mlIVSd: 1.57 | | cmIVSs: 1.79 cmLVIDd: 5.48 cmLVIDs: 3.10 cmLVPWd: 1.32 cmLVPWs: 1.79 | | cmSV(Teich): 108.18 mlD-E Excursion: 1.89 cmE-F Barber: 0.08 m/sHR: 43.51 BPMAV | | maxP.11 mmHgAV meanP.33 mmHgAV Vmax: 1.74 m/Zabrina Vmean: 1.06 m/Zabrina VTI: | | 35.51 cmAVA Vmax: 2.77 cm2AVA (VTI): 2.54 mb8RYCS Dopp: 3.00 l/sjru2TDDO Dopp: | | 6.33 l/minHR: 70.25 BPMLVOT maxP.78 mmHgLVOT meanP.02 mmHgLVSI Dopp: | | 42.76 ml/m2LVSV Dopp: 90.23 mlLVOT Vmax: 1.30 m/sLVOT Vmean: 0.80 m/sLVOT VTI: | | 24.35 cmMV A Bravo: 0.70 m/sMV DecT: 242.46 msMV E Bravo: 0.91 m/sMV E/A Ratio: | | 1.31MV maxP.40 mmHgMV meanP.82 mmHgMV Vmax: 0.92 m/sMV Vmean: 0.37 m/sMV | | VTI: 26.47 cmMVA (VTI): 3.40 le6Jgbiik e': 0.08 m/sSeptal E/e': 11.24HR: | | 60.55 BPMPV maxP.04 mmHgPV meanP.39 mmHgPV Vmax: 0.87 m/sPV Vmean: 0.55 | | m/sPV VTI: 19.09 cmRAP: 5 mmHgRVSP: 21.72 mmHgTR maxP.72 mmHgTR Vmax: | | 2.04 m/sTV A Bravo: 0.33 m/sTV Dec Barber: 1.73 m/s2TV Dec Time: 344.24 msTV E Bravo: | | 0.59 m/sTV E/A Ratio: 1.80TV maxP.40 mmHgTV meanP.44 mmHgTV Vmax: 0.59 | | m/sTV Vmean: 0.30 m/sTV VTI: 22.88 cm Automatic Door Mechanic: EMERYuthenticated by: Edwardo Tee | | Carlos [...] | |D-E Excursion: 1.89 cm | |E-F Barber: 0.08 m/s | |HR: 43.51 BPM | [...] A Bravo: 0.33 m/s | |TV Dec Barber: 1.73 m/s2 | |TV Dec Time: 344.24 ms | |TV E Bravo: 0.59 m/s | |TV E/A Ratio: 1.80 | |TV maxP.40 mmHg | |TV meanP.44 mmHg | |TV Vmax: 0.59 m/s | |TV Vmean: 0.30 m/s | |TV VTI: 22.88 cm | | | |Automatic Door Mechanic: KVW | |Authenticated by: Edwardo Gonzalez MD | |Report Date/Time: 05-25-2009 10:19:52 | + + CT Head wo Contrast (05/24/2009 12:58 PM PDT) + + | Specimen | + + | | + + + + + | Narrative | Performed At | + + + | [id number] | | | Page 1 RADIOLOGY | | | [facility] [address]/ | | | OPO [facility] | | | CENTER NAME: [place] [address] | | | | | | | | | DATE OF : 1960 ORDER NUMBER: | | | [id number] EXAM DATE/TIME: 05/24/2009 12:47 P ORDERING PHYSICIAN: [...] | | asymmetrically dense vessel about the [place] of Pearson. No | | | hydrocephalus. [...] 08:45 P P P | | | TSG/tp/[id number]/ cc: MD ANGELA AVENDAÑO MD | | | MD AMY HAM DO | | + + + + + | Procedure Note | + + | Kalpesh Brown Conversion - 07/17/2019 2:13 AM PDT | | [id number] Page 1 | | RADIOLOGY CDU 28898/ | | OPO | | [facility] NAME: [address] | | [place] [address] | | | | DATE OF : 1960 | | | | ORDER NUMBER: [id number] | | EXAM DATE/TIME: 05/24/2009 12:47 P [...] is no asymmetrically dense vessel about the [place] of Pearson. No | | hydrocephalus. Some [...] | P | | P | | [facility]/tp/[id number]/ | | cc: VINAY HILL MD | | ANGELA MARADIAGA MD | | FEMI MARIE MD | | AMY BANEGAS DO | + + XR Chest 2 Vws (05/24/2009 11:31 AM PDT) + + | Specimen | + + | | + + + + + | Narrative | Performed At | + + + | [id number] | | | Page 1 RADIOLOGY | | | CDU 74443/ | | | [facility] | | | CENTER NAME: [place] [address] | | | | | | | | | DATE OF : 1960 ORDER NUMBER: | | | [id number] EXAM DATE/TIME: 05/24/2009 11:19 A ORDERING PHYSICIAN: [...] DT: | | | 05/24/2009 05:38 P [facility]//[id number]/ cc: VINAY HILL MD | | | MD FEMI FOSS MD AMY | | | P BASSAM, DO | | + + + + + | Procedure Note | + + | Kalpesh Brown - 07/17/2019 2:13 AM PDT | | [id number] Page 1 | | RADIOLOGY CDU 86989/ | | OPO | | [facility] NAME: [address] | | [place] [address] | | | | DATE OF : 1960 | | | | ORDER NUMBER: [id number] | | EXAM DATE/TIME: 05/24/2009 11:19 A [...] | P | | P | | [facility]//[id number]/ | | cc: VINAY HILL MD | | ANGELA MARADIAGA MD | | FEMI MARIE MD | | AMY BANEGAS DO | + + documented in this encounter Visit Diagnoses + + | Diagnosis | + + | Chest pain, unspecified | + + documented in this encounter"
--- OUTSIDE RECORDS SUMMARY | ~2020-04-13 | XMS | Encounter Summary ---
Demographics + + + | Address | [address] | | | [place] [address] | + + + | Home Phone [...] Providers + +------+ + | Care Career Services Assistant Name | Role | Phone | + +------+ + PCP | Unavailable | + +------+ + Encounter Details +--------+ + + + + | Date | Type | Department | Care Team | Description | +--------+ + + + + | 06/14/ | [facility] | [facility] | Kennethshaistatesha Shaistakenneth, | | | 2008 - | Encounter | MED CTR MP INTRA OP | [address] | | | | | [address] | [address] [place], | | | 06/15/ | | [place] | [place] [address] | | | 2008 | | [address] | [phone] | | | | | [phone] | | | +--------+ + + + [...] | | | | | | [place], | | | | | | [place] [address] | | | | | | [phone] | | | | | | | | +--------+ + + + + | 05/01/ | Procedure | Cardiology | | | | 2019 | visit | | | | +--------+ + + + + | 05/01/ | Office | Cardiology | Silvia, | | | 2019 | Visit | | [address] | | | | | | [place], | | | | | | [place] [address] | | | | | | [phone] | | | | | | | | +--------+ + + + + | 05/21/ | Implant | Cardiology | Daljit Singletary, | Remote Device | | 2019 | Monitor | | MD [address] [place] | Interrogation | | | | | [place], | (Primary Dx); | | | | | [place] [address] | Pacemaker; | | | | | [phone] | Sinoatrial node | | | | | | dysfunction (HCC) | | | | | | with symptomatic | | | | | | bradycardia | +--------+ + + + + documented as of this encounter Visit Diagnoses Not on filedocumented in this encounter"
--- OUTSIDE RECORDS SUMMARY | ~2020-04-13 | XMS | Encounter Summary ---
Demographics + + + | Address | [address] | | | [place] [address] | + + + | Home Phone [...] Team Providers + +------+ + | Care Liquid Sugar Melter Name | Role | Phone | + [...] | Aneurysmal | [place]via, | [address] [place] | | | | | dilatation | PARISA Solis | [place], | | | | | (HCC) | [address] | [place] | | | | | Procedures | [place] | [address] | | | | | ECHO | [place], | Phone: | | | | | Complete | [place] | [phone] | | | | | | [address] | Fax: | | | | | | Phone: | [phone] | | | | | | [phone] | | | | | | | Fax: | | | | | | | [phone] | | +--------+--------+ + + + + Encounter Details +--------+ + + + + | Date | Type | Department | Care Team | Description | +--------+ + + + + | 11/16/ | Orders Only | [facility] [place] | [place], | Aneurysmal | | 2017 | | CARDIOLOGY [address] | PARISA Solis [address] | dilatation (HCC) | | | | [place], | [place], | (Primary Dx) | | | | [place] [address] | [place] [address] | | | | | [phone] | [phone] | | | | | | | [...] | | | | | | [place], | | | | | | [place] [address] | | | | | | [phone] | | | | | | | | +--------+ + + + + | 05/01/ | Procedure | Cardiology | | | | 2019 | visit | | | | +--------+ + + + + | 05/01/ | Office | Cardiology | Silvai, | | | 2019 | Visit | | PARISA Solis [address] | | | | | | [place], | | | | | | [place] [address] | | | | | | [phone] | | | | | | | | +--------+ + + + + | 05/21/ | Implant | Cardiology | Daljit Singletary, | Remote Device | | 2019 | Monitor | | [address] [place] | Interrogation | | | | | 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 Procedure Type of | | | Study [...] | | | EF | | | Fckatdnfo38% Left Ventricle Diastolic Dimension: 5.12 cm | [...] Volume: 46.33 ml | | | EF Dllweroez17% | | | | | | Left [...] Rad Results In - 11/16/2017 1:48 PM [facility] Transthoracic Echocardiography Report | | (TTE) Demographics Patient Name VICTOR HUGO BARRY Room Number KIRK | | Patient [id number] Date of Study 11/16/2017 Number Visit Number | | [id number] Referring Physician GURJIT TROY | | Number NORMA SOLIS Date of | | 1960 Neck Band Operator ROMAINE TIPTON RDCS Age 57 year(s) | | Interpreting GURJIT TROY Bicycle Inspector | | DALJIT SINGLETARY MD | | [...] LA Volume: 46.33 ml | | EF Sytdagnws57% Left Ventricle Diastolic Dimension: 5.12 cm Systolic [...] LA Volume: 46.33 ml | | EF Aytrotqpz88% | | | | Left Ventricle | [...]
--- OUTSIDE RECORDS SUMMARY | ~2020-04-13 | XMS | Encounter Summary ---
Demographics + + + | Address | [address] | | | [place] [address] | + + + | Home Phone [...] Providers + +------+ + | Care General Road Production Manager Name | Role | Phone | + +------+ + | Kirk French MD | PCP | | + +------+ + Encounter Details +--------+ + + + + | Date | Type | Department | Care Team | Description | +--------+ + + + + | 12/24/ | Orders Only | [facility] | Conversion | | | 2018 | | [facility] | Transaction, | | | | | PRIMARY CARE [address] | Provider Unknown | | | | | [address] | [phone] | | | | | [place] | | | | | | [address] | | | | | | [phone] | | | +--------+ + + + [...] | | | | | | [place] [address] | | | | | | [phone] | | | | | | | [...] | | | | | | [place] [address] | | | | | | [phone] | | | | | | | | +--------+ + + + + | 05/21/ | Implant | Cardiology | Daljit Singletary, | Remote Device | | 2020 | Monitor | | [facility] | Interrogation | | | | | [place], | (Primary Dx); | | | | | [place] [address] | Pacemaker; | | | | | [phone] | Sinoatrial node | | | | [...] This external order was created through the [employer] Console. | EXTERNAL LAB | | Historically [...]
--- OUTSIDE RECORDS SUMMARY | ~2020-04-13 | XMS | Encounter Summary ---
Demographics + + + | Address | [address] | | | [place] [address] | + + + | Home Phone [...] Team Providers + +------+ + | Care Gasfitter Name | Role | Phone | + +------+ + | Kirk French MD | PCP | | + +------+ + Encounter Details +--------+ + + + + | Date | Type | Department | Care Team | Description | +--------+ + + + + | 01/18/ | Hospital | [facility] | Conversion | Diagnosis unknown | | 2017 | Encounter | CONVERSION DEP [address] | Transaction, | | | | | [address] | Provider Unknown | | | | | [place], [place] | [phone] | | | | | [address] | | | | | | [phone] | | | +--------+ + + + [...] | | | | | | [place] [address] | | | | | | [phone] | | | | | | | | +--------+ + + + + | 05/01/ | Procedure | Cardiology | | | | 2019 | visit | | | | +--------+ + + + + | 05/01/ | Office | Cardiology | Silvia, | | | 2019 | Visit | | [address] | | | | | | [place], | | | | | | [place] [address] | | | | | | [phone] | | | | | | | | +--------+ + + + + | 05/21/ | Implant | Cardiology | Daljit Singletary, | Remote Device | | 2019 | Monitor | | MD Sim [facility] | Interrogation | | | | | [place], | (Primary Dx); | | | | | [place] [address] | Pacemaker; | | | | | [phone] | Sinoatrial node | | | | | | dysfunction ([facility]) | | | | | [...]
--- OUTSIDE RECORDS SUMMARY | ~2020-04-13 | XMS | Encounter Summary ---
Demographics + + + | Address | [address] | | | [place] [address] | + + + | Home Phone [...] Providers + +------+ + | Care Database Admin Name | Role | Phone | [...] 2019 | | GASTROENTEROLOGY | [address], [place] | | | | | [address] [place] | [address] [place], [place] | | | | | [address] [place], [place] | [address] | | | | | [address] | | | | | | [phone] | | | +--------+ + + + [...] | | | | | | [place] [address] | | | | | | [phone] | | | | | | | | +--------+ + + + + | 05/01/ | Procedure | Cardiology | | | | 2020 | visit | | | | +--------+ + + + + | 06/10/ | Office | Cardiology | Silvia, | | | 2019 | Visit | | [address] | | | | | | [place], | | | | | | [place] [address] | | | | | | [phone] | | | | | | | | +--------+ + + + + | 05/21/ | Implant | Cardiology | Daljit Singletary, | Remote Device | 2019 | Monitor | | [address] | Interrogation | | | | | [place], | (Primary Dx); | | | | | [place] [address] | Pacemaker; | | | | | [phone] | Sinoatrial node | | | | | | dysfunction (HCC) | | | | | | with symptomatic | | | | | | bradycardia | +--------+ + + + + documented as of this encounter Visit Diagnoses Not on filedocumented in this encounter"
--- OUTSIDE RECORDS SUMMARY | ~2020-04-13 | XMS | Encounter Summary ---
Demographics + + + | Address | [address] | | | [place] [address] | + + + | Home Phone [...] Providers + +------+ + | Care Special Equipment Technician Name | Role | Phone [...] type ER | [address] | [address] | | | | | FUP | [place] | [place], | | | | | Procedures | [place], [place] | [place] [address] | | | | | FUP - SUW & | [address] | Phone: | | | | | EVM PT, LAST | Phone: | [phone] | | | | | SEEN | [phone] | Fax: | | | | | 08-24-18 | Fax: | [phone] | | | | | | [phone] | | +--------+ + + + + [...] | | | | CENTER [address] | [address] [place] | (Primary Dx) | | | | [place], [place] | [place] [address] | | | | | [address] | [phone] | | | | | [phone] | | | +--------+ + + + [...] through Care Everywhere.Chest Pain, Unc ertain Cause (Irish)documented in this encounter Medications at Time of [...] + + + +---------+ + + | Kerby-3 Fatty | CAPS, one capsule by | [...] | | | | | | [place] [address] | | | | | | [phone] | | | | | | | | +--------+ + + + + | 05/01/ | Procedure | Cardiology | | | | 2019 | visit | | | | +--------+ + + + + | 05/01/ | Office | Cardiology | Silvia, | | | 2019 | Visit | | PARISA Vernon [address] | | | | | | [place], | | | | | | [place] [address] | | | | | | [phone] | | | | | | | | +--------+ + + + + | 05/21/ | Implant | Cardiology | Daljit Singletary, | Remote Device | 2019 | Monitor | | [address] | Interrogation | | | | | [place], | (Primary Dx); | | | | | [place] [address] | Pacemaker; | | | | | [phone] | Sinoatrial node | | | | [...] | | | | ANGELA MARADIAGA MD ([id number]) | | | | | | on [...] | | | | | | [employer] | | | | | [...] [address] | [place] | [phone] | | [facility] | | [address] | | | - LABORATORY | | [...] [address] | [place] | [phone] | | [facility] | | [address] | | | - LABORATORY | | [...] - 1.030 | [facility] | | | [place], | | | [facility] | | [...] [address] | [place] | [phone] | | [facility] | | [address] | | | - LABORATORY | | [...] [address] | [place] | [phone] | | [facility] | | [address] | | | - LABORATORY | | [...] [address] | [place] | [phone] | | [facility] | | [address] | | | - LABORATORY | | [...] | | | | | | [employer] | | | | | [...] [address] | [place] | [phone] | | [facility] | | [address] | | | - LABORATORY | | [...] | 0.96 | 0.60 - 1.30 | [facility] | | | | | mg/dL [...] mL/min/1.73m2 | [facility] | | | [place] | RATE,ESTIMATED | | MEDICAL | | | | mL/min/1.28y3Omet than | | CENTER - | | [...] [address] | [place] | [phone] | | [facility] | | [address] | | | - LABORATORY | | [...] + | [address] | [address] | [place] | [phone] | | [facility] | | [address] | | | - LABORATORY | | [...] | | | | HIREN WINKLER, ANGELA ([id number]) | | | | | | on [...]
--- OUTSIDE RECORDS SUMMARY | ~2020-04-13 | XMS | Encounter Summary ---
Demographics + + + | Address | [address] | | | [place] [address] | + + + | Home Phone [...] Providers + +------+ + | Care Banquet Director Name | Role | Phone | [...] | | | | [place] | [address] | | | | | [address] | | | | | | [phone] | | | +--------+ + + + [...] [address] | | | | | | [place], | | | | | | [place] [address] | | | | | | [phone] | | | | | | | | +--------+ + + + + | 05/01/ | Procedure | Cardiology | | | | 2019 | visit | | | | +--------+ + + + + | 05/01/ | Office | Cardiology | Sil[place], | | | 2019 | Visit | | [address] | | | | | | [place], | | | | | | [place] [address] | | | | | | [phone] | | | | | | | | +--------+ + + + + | 05/21/ | Implant | Cardiology | Daljit Singletary, | Remote Device | 2019 | Monitor | | MD Chiquis Oro | Interrogation | | | | | [facility], | (Primary Dx); | | | | | [place] [address] | Pacemaker; | | | | | [phone] | Sinoatrial node | | | | | | dysfunction (HCC) | | | | | | with symptomatic | | | | | | bradycardia | +--------+ + + + + documented as of this encounter Visit Diagnoses Not on filedocumented in this encounter"
--- OUTSIDE RECORDS SUMMARY | ~2020-04-13 | XMS | Encounter Summary ---
Demographics + + + | Address | [address] | | | [place] [address] | + + + | Home Phone [...] Team Providers + +------+ + | Care Sack Sorter Name | Role | Phone | [...] [address] | | | | | | [place], [place] | (Fax) | | | | | [address] | | | | | | [phone] | | | +--------+ + + + [...] | | | | | | [place] [address] | | | | | | [phone] | | | | | | | | +--------+ + + + + | 05/01/ | Procedure | Cardiology | | | | 2019 | visit | | | | +--------+ + + + + | 05/01/ | Office | Cardiology | Silvia, | | | 2019 | Visit | | [address] | | | | | | [place], | | | | | | [place] [address] | | | | | | [phone] | | | | | | | | +--------+ + + + + | 05/21/ | Implant | Cardiology | Daljit Singletary, | Remote Device | | 2019 | Monitor | | [address] [place] | Interrogation | | | | | [place], | (Primary Dx); | | | | | [place] [address] | Pacemaker; | | | | | [phone] | Sinoatrial node | | | | | | dysfunction (HCC) | | | | | | with symptomatic | | | | | | bradycardia | +--------+ + + + + documented as of this encounter Visit Diagnoses Not on filedocumented in this encounter"
--- OUTSIDE RECORDS SUMMARY | ~2020-04-13 | XMS | Encounter Summary ---
Demographics + + + | Address | [address] | | | [place] [address] | + + + | Home Phone [...] Team Providers + +------+ + | Care Practice Lead Name | Role | Phone | [...] | | | | | [address] | [place] [address] | | | | | | [place], [place] | Phone: | | | | | | [address] | [phone] | | | | | | Phone: | Fax: | | | | | | [phone] | [phone] | | | | | | Fax: | | | | | | | [phone] | | + + + + + + + Reason for Visit + + + | Reason | Comments | + + + | Annual Exam | | + + + Encounter Details +--------+---------+ + + + | Date | Type | Department | Care Team | Description | +--------+---------+ + + + | 01/11/ | Office | [facility] | Prabhakarmaria doloresKirk | Irritable bowel | | 2019 | Visit | [facility] | MD Brea [address] | syndrome, | | | | [facility] [address] | unspecified type | | | | [address] | [place] [address] | (Primary Dx); | | | | [place], [place] | [phone] | Chronic pain | | | | [address] | | syndrome; Smoker; | | | | [phone] | | Fatigue, unspecified | | | | | | type; | | | | | | Hyperlipidemia, | | | | | | mixed; Preventative | | | | | | health care; | | | | | | Coronary artery | | | | | | disease involving | | | | | | inaja coronary | | | | | | artery of inaja | | | | | | heart [...] PLT 169 06/02/2019 No results found for: [id number] No results found for: FOLATE No results [...] Plan and Recommendations: 1. [facility] in [place] for stool studies as outlined above 2. If negative and symptoms persist, recommend capsule endoscopy (this could be completed b y local housemaid or he could return to [place] for this test) 3. Nortryptiline 25mg q HS with instruction to titrate to 50mg q HS after 2 weeks if tolera kevin Follow-Up: with local housemaid Counseling Time: I spent a total of 35 minutes with this patient, of which greater than 50% of the time was spent in counseling. Specific issues that were discussed included a review of the disease, diagnostic tools that help in our management plans for the patient's chronic diarrhea, abdominal cramping and weight loss and goals for treatment. Bridgette Rios MD Strand Forming Machine Operator Gastroenterology Many co and concerns: Co bleeding Co weak Co tired Co diarrhea Co cramps Co weight changes Co 14 stool in 2 hours this AM Took 8 imodium and 2 lomotil Not taking nortriptyline as prescribed by his GI Also wants a script for hemorrhoids Pending pill endoscopy and colonoscopy May be interested in [place] if no results States was down 210# now 267 Co bedridden and can't leave the house Co incontinence States many ER visits, once a week in [place], tx with IVF and dilaudid Conc re ppm Conc re r shoulder tkr and need for mri Issues with Klonopin Was arrested for DUI, self dc 08/14, had difficult withdrawal ofr 2 weeks Walks daily now for stress and exercise 1-5 miles a day Plan: ASSESSMENT AND PLAN: 1. Approximately 40 minutes of time on this gentleman's case pcdw-et-aksa, a lot of it was reviewing outside [...] atypica l. Followed by Dr. Rios at [facility]. I reviewed her notes in the [...] | | | | | | [place] [address] | | | | | | [phone] | | | | | | | [...] | | | | | | [place] [address] | | | | | | [phone] | | | | | | | | +--------+ + + + + | 05/21/ | Implant | Cardiology | Daljit Singletary, | Remote Device | | 2019 | Monitor | | MD [address] [place] | Interrogation | | | | | [place], | (Primary Dx); | | | | | [place] [address] | Pacemaker; | | | | | [phone] | Sinoatrial node | | | | [...] pain | Ordered: 01/11/2020 | | to [facility] Pain | Referral | e [...] health care Routine general medical examination at [facility] | | facility | + + | Coronary artery disease involving inaja coronary artery of inaja heart without | | angina pectoris | [...]
--- OUTSIDE RECORDS SUMMARY | ~2020-04-13 | XMS | Encounter Summary ---
Demographics + + + | Address | [address] | | | [place] [address] | + + + | Home Phone [...] Providers + +------+ + | Care Jukebox Checker Name | Role | Phone | [...] 2019 | | GASTROENTEROLOGY | [address], [place] | Recommendations | | | | [address] [place] | [address] [place], [place] | | | | | [address] [place], [place] | [address] | | | | | [address] | | | | | | [phone] | | | +--------+ + + + [...] | | | | | | [place] [address] | | | | | | [phone] | | | | | | | | +--------+ + + + + | 05/01/ | Procedure | Cardiology | | | | 2019 | visit | | | | +--------+ + + + + | 05/01/ | Office | Cardiology | Silvia, | | | 2019 | Visit | | PARISA [place] [address] | | | | | | [place], | | | | | | [place] [address] | | | | | | [phone] | | | | | | | | +--------+ + + + + | 05/21/ | Implant | Cardiology | Daljit Singletary, | Remote Device | 2019 | Monitor | | [address] [facility] | Interrogation | | | | | [place], | (Primary Dx); | | | | | [place] [address] | Pacemaker; | | | | | [phone] | Sinoatrial node | | | | | | dysfunction (HCC) | | | | | | with symptomatic | | | | | | bradycardia | +--------+ + + + + documented as of this encounter Visit Diagnoses Not on filedocumented in this encounter"
--- OUTSIDE RECORDS SUMMARY | ~2020-04-13 | XMS | Encounter Summary ---
Demographics + + + | Address | [address] | | | [place] [address] | + + + | Home Phone [...] Team Providers + +------+ + | Care Bearingizer Name | Role | Phone | + [...] | | CARDIOLOGY [address] | [address] | | | | | [place], | [place], | | | | | [place] [address] | [place] [address] | | | | | [phone] | [phone] | | | | | | | [...] | | | | | | [place] [address] | | | | | | [phone] | | | | | | | | +--------+ + + + + | 05/01/ | Procedure | Cardiology | | | | 2019 | visit | | | | +--------+ + + + + | 05/01/ | Office | Cardiology | Silvia, | | | 2019 | Visit | | PARISA Vernon [address] | | | | | | [place], | | | | | | [place] [address] | | | | | | [phone] | | | | | | | | +--------+ + + + + | 05/21/ | Implant | Cardiology | Daljit Singletary, | Remote Device | | 2019 | Monitor | | MD [address] [place] | Interrogation | | | | | [place], | (Primary Dx); | | | | | [place] [address] | Pacemaker; | | | | | [phone] | Sinoatrial node | | | | [...] [address] | [place] | [phone] | | [facility] | | [address] | | | - LABORATORY | | | | + + + + + | [facility] [address] | [address] | [place] | | | [facility] | | [address], [facility] | | | - LABORATORY [...] [facility] | | | | | [facility] | | | | | - LABORATORY | | | | + +---------+ + + documented in this encounter Visit Diagnoses Not on filedocumented in this encounter"
--- OUTSIDE RECORDS SUMMARY | ~2020-04-13 | XMS | Encounter Summary ---
Demographics + + + | Address | [address] | | | [place] [address] | + + + | Home Phone [...] Providers + +------+ + | Care Chocolate Molder Name | Role | Phone | + +------+ + PCP | Unavailable | + +------+ + Encounter Details +--------+ + + + + | Date | Type | Department | Care Team | Description | +--------+ + + + + | 02/28/ | [facility] | [facility] | Geri Angel, | | | 2011 | Encounter | MED CTR XRAY [address] | COMMERCIAL PARTS PROFESSIONAL [address] | | | | | [place] | [address] [place] | | | | | [place] [address] | [address] | | | | | [phone] | | | +--------+ + + + [...] | | | | | | [place], | | | | | | [place] [address] | | | | | | [phone] | | | | | | | | +--------+ + + + + | 05/01/ | Procedure | Cardiology | | | | 2019 | visit | | | | +--------+ + + + + | 05/01/ | Office | Cardiology | Silvia, | | | 2019 | Visit | | PARISA Vernon [address] | | | | | | [place], | | | | | | [place] [address] | | | | | | [phone] | | | | | | | | +--------+ + + + + | 05/21/ | Implant | Cardiology | Daljit Singletary, | Remote Device | | 2019 | Monitor | | [address] | Interrogation | | | | | [place], | (Primary Dx); | | | | | [place] [address] | Pacemaker; | | | | | [phone] | Sinoatrial node | | | | [...] Performed At | + + + | [facility] Diagnostic Imaging Department | [facility] | | [address] | [facility] | | LEFT HEART CATHETERIZATION | [facility] | | REPORT 02/29/2012 HEMODYNAMICS: Aortic pressure [...] was taken to | | | Cardiac Laminator Printed Circuit Boards. He was prepared and draped in the usual fashion | | | under a sterile technique and local anesthesia, percutaneous access | | | was obtained using #6- Colombian sheath in the right femoral artery. | | | Right heart cath was not performed in this patient. Left | | | ventriculography was performed using #6-Colombian pigtail catheter. | | | The selective coronary angiography were then performed in several | | | sagittal and oblique projection using the 6-Colombian JL 4 and #6 Colombian | | | 3DRC diagnostic catheters. The [...] Transcribed | | | Date/Time: 02/29/2012 09:09 Consumer Relations Specialist: | | | <Electronically Signed by Daljit Singletary MD [facility]> 02/29/12 | | | 1002 | | + + + + + | Procedure Note | + + | Kalpesh Brown Conversion - 12/29/2013 5:04 PM [facility] | | Diagnostic Imaging Department | | [address] | | | | | | [...] patient was taken to Cardiac | | Laminator Printed Circuit Boards. He was prepared and draped in the usual fashion under a sterile | | technique and local anesthesia, percutaneous access was obtained using #6- | | Colombian sheath in the right femoral artery. Right heart cath was not performed | | in this patient. Left ventriculography was performed using #6-Colombian pigtail | | catheter. The selective coronary angiography were then performed in several | | sagittal and oblique projection using the 6-Colombian JL 4 and #6 Colombian 3DRC | | diagnostic catheters. The patient [...] | Transcribed Date/Time: 02/29/2012 09:09 | | Consumer Relations Specialist: | | <Electronically Signed by Daljit Singletary MD [facility]> 02/29/12 1002 | + + + +---------+ + + | Performing | Address | City/State/Zipcode | Phone Number | | Organization | | | | + +---------+ + + | [place] | | | | | [facility] | | | | + +---------+ + + documented in this encounter Visit Diagnoses Not on filedocumented in this encounter"
--- OUTSIDE RECORDS SUMMARY | ~2020-04-13 | XMS | Encounter Summary ---
Demographics + + + | Address | [address] | | | [place] [address] | + + + | Home Phone [...] Team Providers + +------+ + | Care Pulping Machine Operator Name | Role | Phone [...] [address] | | | | | [place], | [place], | | | | | [place] [address] | [place] [address] | | | | | [phone] | [phone] | | | | | | | [...] W | | | | | | [place], | | | | | | [place] [address] | | | | | | [phone] | | | | | | | | +--------+ + + + + | 05/01/ | Procedure | Cardiology | | | | 2019 | visit | | | | +--------+ + + + + | 05/01/ | Office | Cardiology | Silvia, | | | 2019 | Visit | | PARISA Vernon [address] | | | | | | [place], | | | | | | [place] [address] | | | | | | [phone] | | | | | | | | +--------+ + + + + | 05/21/ | Implant | Cardiology | Daljit Singletary, | Remote Device | | 2020 | Monitor | | [address] [facility] | Interrogation | | | | | [place], | (Primary Dx); | | | | | [place] [address] | Pacemaker; | | | | | [phone] | Sinoatrial node | | | | [...]
--- OUTSIDE RECORDS SUMMARY | ~2020-04-13 | XMS | Encounter Summary ---
Demographics + + + | Address | [address] | | | [place] [address] | + + + | Home Phone [...] Team Providers + +------+ + | Care Feed House Supervisor Name | Role | Phone | + +------+ + | Michael Amanda DO | PCP | | + +------+ + Encounter Details +--------+ + + + + | Date | Type | Department | Care Team | Description | +--------+ + + + + | 12/25/ | Hospital | [facility] | Daljit Singletary, | | | 2013 | Encounter | MED CTR XRAY [address] | [address] | | | | | [address] [place] | [place], | | | | | [place] [address] | [place] [address] | | | | | [phone] | [phone] | | | | | | | [...] + + + +---------+ + + | Bristow-3 Fatty | CAPS, one capsule by | [...] | | | | | | [place] [address] | | | | | | [phone] | | | | | | | | +--------+ + + + + | 05/01/ | Procedure | Cardiology | | | | 2019 | visit | | | | +--------+ + + + + | 05/01/ | Office | Cardiology | Silvia, | | | 2019 | Visit | | PARISA Vernon [address] | | | | | | [place], | | | | | | [place] [address] | | | | | | [phone] | | | | | | | | +--------+ + + + + | 05/21/ | Implant | Cardiology | Daljit Singletary, | Remote Device | | 2019 | Monitor | | [address] | Interrogation | | | | | [place], | (Primary Dx); | | | | | [place] [address] | Pacemaker; | | | | | [phone] | Sinoatrial node | | | | [...] Performed At | + + + | [place] [facility] Diagnostic Imaging | [facility] | | Department [address] [place] [address] | [facility] | | [ rep ct [address]] [ rep [facility] | | st zip] Signed | - IMAGING | | | | | Patient Name: MOE GAY | | | Physician: MIGUELINA : 1960 Age: 53 Sex: M Unit | | | #: [id number] Exam Date: 12/25/13 Location: | | | SDS SDS-D Report #: [id number] Page: | | | %(RAD)RES..mtdd.print.filter("pg") of %(RAD) | | | RES..mtdd.print.filter("tpg") | | | | | | Accession Number: [id number] | | | LEFT HEART CATHETERIZATION, 12/25/2013 [...] the patient was taken to the cardiac clam bed laborer. She | | | was prepared and draped in the usual fashion. Under sterile | | | technique and local anesthesia, percutaneous access was obtained | | | using #5 Cypriot sheath in the right radial artery. Right heart cath | | | was not performed on this patient. Left ventriculography was | | | performed using #5 multipurpose diagnostic catheter. The selective | | | coronary angiography was then performed in several sagittal and | | | oblique projections using #5 multipurpose and #5 Cypriot JL 3.5 | | | diagnostic catheters. [...] Transcribed | | | Date/Time: 12/25/2013 11:52 Concrete Floor Installer: | | | <<Signature on File>> | | | Daljit | | | MD [facility] FAS12/25/13 1343 <Electronically signed by | | | Daljit Singletary MD, [facility], FACP, ADELINE, YEN> Daljit | | | MD [facility] ADELINE 12/25/13 1035 Concrete Floor Installer: Jessica | | | Johobdomwbaqo29/03/14 1152 | | + + + + + + + + | Performing | Address | City/State/Zipcode | Phone Number | | Organization | | | | + + + + + | [facility] | [address] | [place] | [phone] | | [facility] | | [address] | | | - IMAGING | | | | + + + + + documented in this encounter Visit Diagnoses Not on filedocumented in this encounter
--- OUTSIDE RECORDS SUMMARY | ~2020-04-13 | XMS | Encounter Summary ---
Demographics + + + | Address | [address] | | | [place] [address] | + + + | Home Phone [...] Team Providers + +------+ + | Care Ap Operator Name | Role | Phone | [...] + + | 10/01/ | Office | [facility] | Mary Bradshaw | Injury of left foot, | | 2013 | Visit | CARE [address] | Guy Larkin MD | initial encounter | | | | [place] | [address] | (Primary Dx) | | | | [address] | [place] | | | | | [phone] | [address] | | | | | | | [...] hours. 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 I provided patient with Dr. Bradley's card so he may contact us for results. Patient's best phone number: [phone] Renetta Lockwood RN ary [place] MD - [...] | | | | | | [place] [address] | | | | | | [phone] | | | | | | | | +--------+ + + + + | 05/01/ | Procedure | Cardiology | | | | 2019 | visit | | | | +--------+ + + + + | 05/01/ | Office | Cardiology | Silvia, | | | 2019 | Visit | | PARISA Vernon [address] | | | | | | [place], | | | | | | [place] [address] | | | | | | [phone] | | | | | | | | +--------+ + + + + | 05/21/ | Implant | Cardiology | Daljit Singletary, | Remote Device | | 2019 | Monitor | | MD [address] [facility] | Interrogation | | | | | [place], | (Primary Dx); | | | | | [place] [address] | Pacemaker; | | | | | [phone] | Sinoatrial node | | | | [...] + | MISCELLANEOUS LAB | | | [phone] | + +---------+ + + | MISCELANIOUS LAB | | | [phone] | + +---------+ + + documented in this encounter Visit Diagnoses + + | Diagnosis | + + | Injury of left foot, initial encounter - Primary | + + documented in this encounter
--- OUTSIDE RECORDS SUMMARY | ~2020-04-13 | XMS | Encounter Summary ---
Demographics + + + | Address | [address] | | | [place] [address] | + + + | Home Phone [...] Team Providers + +------+ + | Care Brake Repairer Hydraulic Name | Role | Phone | + [...] CARDIOLOGY [address] | MD [address] [place] | reprogramming/check | | | | [place], | [place], | DO NOT DELETE | | | | [place] [address] | [place] [address] | (Primary Dx); | | | | [phone] | [phone] | Pacemaker - | | | | [...] | | | | | | [place] [address] | | | | | | [phone] | | | | | | | [...] | | | | | | [place] [address] | | | | | | [phone] | | | | | | | | +--------+ + + + + | 05/21/ | Implant | Cardiology | Daljit Singletary, | Remote Device | | 2019 | Monitor | | [address] [place] | Interrogation | | | | | [place], | (Primary Dx); | | | | | [place] [address] | Pacemaker; | | | | | [phone] | Sinoatrial node | | | | [...] MD [facility] 01/19/2018 11:35 PATIENT NAME: Moe Brdaley | | | Laura : 1960: AGE: [...]
--- OUTSIDE RECORDS SUMMARY | ~2020-04-13 | XMS | Encounter Summary ---
Demographics + + + | Address | [address] | | | [place] [address] | + + + | Home Phone [...] Providers + +------+ + | Care Database Designer Name | Role | Phone | [...] [address] | | | | | [place], | [place], | | | | | [place] [address] | [place] [address] | | | | | [phone] | [phone] | | | | | | | [...] | | | | | | [place] [address] | | | | | | [phone] | | | | | | | | +--------+ + + + + | 05/01/ | Procedure | Cardiology | | | | 2019 | visit | | | | +--------+ + + + + | 05/01/ | Office | Cardiology | Silvia, | | | 2019 | Visit | | PARISA [place] [address] | | | | | | [place], | | | | | | [place] [address] | | | | | | [phone] | | | | | | | | +--------+ + + + + | 05/21/ | Implant | Cardiology | Daljit Singletary, | Remote Device | | 2019 | Monitor | | [address] [facility] | Interrogation | | | | | [place], | (Primary Dx); | | | | | [place] [address] | Pacemaker; | | | | | [phone] | Sinoatrial node | | | | | | dysfunction (HCC) | | | | | | with symptomatic | | | | | | bradycardia | +--------+ + + + + documented as of this encounter Visit Diagnoses Not on filedocumented in this encounter"
--- OUTSIDE RECORDS SUMMARY | ~2020-04-13 | XMS | Encounter Summary ---
Demographics + + + | Address | [address] | | | [place] [address] | + + + | Home Phone [...] Team Providers + +------+ + | Care Hardening Machine Operator Helper Name | Role | Phone [...] + | 11/03/ | Refill | [facility] | Kirk French | Medication Refill | | 2019 | | [facility] | MD [address] | | | | | PRIMARY CARE [address] | [address] | | | | | [address] | [place] [address] | | | | | [place], [place] | [phone] | | | | | [address] | | | | | | [phone] | | | +--------+--------+ + + + [...] | | | | | | [place] [address] | | | | | | [phone] | | | | | | | | +--------+ + + + + | 05/01/ | Procedure | Cardiology | | | | 2019 | visit | | | | +--------+ + + + + | 05/01/ | Office | Cardiology | Silvia, | | | 2019 | Visit | | PARISA Vernon [address] | | | | | | [place], | | | | | | [place] [address] | | | | | | [phone] | | | | | | | | +--------+ + + + + | 05/21/ | Implant | Cardiology | Daljit Singletary, | Remote Device | | 2019 | Monitor | | [address] [facility] | Interrogation | | | | | [place], | (Primary Dx); | | | | | [place] [address] | Pacemaker; | | | | | [phone] | Sinoatrial node | | | | | | dysfunction (HCC) | | | | | | with symptomatic | | | | | | bradycardia | +--------+ + + + + documented as of this encounter Visit Diagnoses Not on filedocumented in this encounter"
--- OUTSIDE RECORDS SUMMARY | ~2020-04-13 | XMS | Encounter Summary ---
Demographics + + + | Address | [address] | | | [place] [address] | + + + | Home Phone [...] Providers + +------+ + | Care Phlebotomy Manager Name | Role | Phone | [...] [address] | | | | | | [place], [place] | (Fax) | | | | | [address] | | | | | | [phone] | | | +--------+ + + + [...] | | | | | | [place] [address] | | | | | | [phone] | | | | | | | | +--------+ + + + + | 05/01/ | Procedure | Cardiology | | | | 2019 | visit | | | | +--------+ + + + + | 05/01/ | Office | Cardiology | Silvia, | | | 2019 | Visit | | PARISA Vernon [address] | | | | | | [place], | | | | | | [place] [address] | | | | | | [phone] | | | | | | | | +--------+ + + + + | 05/21/ | Implant | Cardiology | Daljit Singletary, | Remote Device | | 2019 | Monitor | | [address] [place] | Interrogation | | | | | [place], | (Primary Dx); | | | | | [place] [address] | Pacemaker; | | | | | [phone] | Sinoatrial node | | | | | | dysfunction (HCC) | | | | | | with symptomatic | | | | | | bradycardia | +--------+ + + + + documented as of this encounter Visit Diagnoses Not on filedocumented in this encounter"
--- OUTSIDE RECORDS SUMMARY | ~2020-04-13 | XMS | Encounter Summary ---
Demographics + + + | Address | [address] | | | [place] [address] | + + + | Home Phone [...] Providers + +------+ + | Care Director Furniture Name | Role | Phone | [...] | disease involving | | | | [place], | [place], | [place] coronary | | | | [place] [address] | [place] [address] | artery of [place] | | | | [phone] | [phone] | heart without angina | | | [...] W | | | | | | [place], | | | | | | [place] [address] | | | | | | [phone] | | | | | | | | +--------+ + + + + | 05/01/ | Procedure | Cardiology | | | | 2019 | visit | | | | +--------+ + + + + | 05/01/ | Office | Cardiology | Silvia, | | | 2019 | Visit | | PARISA [place] [address] | | | | | | [place], | | | | | | [place] [address] | | | | | | [phone] | | | | | | | | +--------+ + + + + | 05/21/ | Implant | Cardiology | AnshujohnsoncherelleShaistapawanotto, | Remote Device | | 2019 | Monitor | | MD [address] [facility] | Interrogation | | | | | [place], | (Primary Dx); | | | | | [place] [address] | Pacemaker; | | | | | [phone] | Sinoatrial node | | | | [...] MD | | | | | | ([id number]) on 06/23/2016 | | | | | [...] + | Coronary artery disease involving [place] coronary artery of [place] heart without | | angina pectoris - Primary | + + | Essential hypertension with goal blood pressure less than 130/80 | + + documented in this encounter"
--- OUTSIDE RECORDS SUMMARY | ~2020-04-13 | XMS | Encounter Summary ---
Demographics + + + | Address | [address] | | | [place] [address] | + + + | Home Phone [...] Team Providers + +------+ + | Care Hvac Commercial Salesperson Name | Role | Phone | [...] 2012 | | CARDIOLOGY [address] | COAL WASHER [address] | | | | | [place], | [place], [place] | | | | | [place] [address] | [address] | | | | | [phone] | | | +--------+ + + + [...] | | | | | | [place] [address] | | | | | | [phone] | | | | | | | | +--------+ + + + + | 05/01/ | Procedure | Cardiology | | | | 2019 | visit | | | | +--------+ + + + + | 05/01/ | Office | Cardiology | Silvia, | | | 2019 | Visit | | [address]ISA [address] | | | | | | [place], | | | | | | [place] [address] | | | | | | [phone] | | | | | | | | +--------+ + + + + | 05/21/ | Implant | Cardiology | Daljit Singletary, | Remote Device | 2019 | Monitor | | [address] [place] | Interrogation | | | | | [place], | (Primary Dx); | | | | | [place] [address] | Pacemaker; | | | | | [phone] | Sinoatrial node | | | | [...] St | [place] | | | [facility] | | [address], [facility] | | | - LABORATORY | | [...] | | | LAB | | | [place], | | | | | | External [...]
--- OUTSIDE RECORDS SUMMARY | ~2020-04-13 | XMS | Encounter Summary ---
Demographics + + + | Address | [address] | | | [place] [address] | + + + | Home Phone [...] Providers + +------+ + | Care Skiver Counter Name | Role | Phone | + [...] | 04/07/ | Office | PM SE DC UROLOGY | Matthew Uriarte | Left ureteral | | 2019 | Visit | [address] | MD Tawanna [address] | calculus (Primary | | | | [place], [place] | AVE [place] | Dx); Kidney stones | | | | [address] | [address] | | | | | [phone] | | | +--------+---------+ + + + [...] April 13, 2019 at 7:45 AM at [facility]. Please report to the [facility] no later than 6:15 AM. REMEMBER: NOTHING TO EAT OR DRINK AFTER MIDNIGHT April 12, 2019. NO FISH OIL, ASPIRIN OR ASPIRIN PRODUCTS ONE WEEK PRIOR TO SURGERY. Tylenol and Advil are OK. You will need to get the following testing done prior to surgery: CBC, BMP YOU WILL NEED TO BRING A WINCH STRIPPER WITH YOU THE DAY OF SURGERY. Call us at [phone] with any questions. [] Pain management booklet [...] Medtronic Peptic ulcer disease Premature ventricular contraction [facility] care 06/26/2013 LAST PSA:12/16/2010 RESULT:0.14 LAST [...] CV LHC; Surgeon: Daljit Singletary MD; Location: [facility] CV LAB CARDIAC CATHERIZATION N/A 01/25/2019 Procedure: CV Cor Angio; Surgeon: Daljit Singletary MD; Location: [facility] CV LAB COLONOSCOPY N/A 12/24/2017 Procedure: COLONOSCOPY; Surgeon: Emmanuel Daniel MD; Location: [facility] MEDICAL PROCEDURE UNIT COLONOSCOPY N/A 01/05/2019 Procedure: COLONOSCOPY; Surgeon: Emmanuel Daniel MD; Location: [facility] MEDICAL PROCEDURE UNIT EGD 12/24/2017 [...] Procedure: EGD; Surgeon: Emmanuel Daniel MD; Location: [facility] MEDICAL PROCEDURE UNIT UPPER GASTROINTESTINAL ENDOSCOPY N/A 01/05/2019 Procedure: EGD; Surgeon: Emmanuel Daniel MD; Location: [facility] MEDICAL PROCEDURE UNIT VASECTOMY Family History: Family [...] EVERY DAY, Disp: 90 tablet, Rfl: 3 [facility] Natural Products (OSTEO BI-FLEX/5-LOXIN ADVANCED PO), Take [...] 911, Disp: 100 ta blet, Rfl: 3 Morris-3 Fatty Acids (SALMON OIL-1000 PO), CAPS, one capsule by mouth daily twice daily , Disp: , Rfl: ondansetron (ZOFRAN ODT) 4 mg disintegrating tablet, Take 4 mg by mouth., Disp: , Rfl: ONE TOUCH DELICA LANCETS [facility], Check glucose as needed for hypoglycemia, Disp: [...] have not thoroughly proofread this note, and maintenance mechanic engine errors are very likely to occur. CC: [...] | | | | | | [place] [address] | | | | | | [phone] | | | | | | | [...] | | | | | | [place] [address] | | | | | | [phone] | | | | | | | | +--------+ + + + + | 05/21/ | Implant | Cardiology | Daljit Singletary, | Remote Device | 2019 | Monitor | | MD [address] | Interrogation | | | | | [place], | (Primary Dx); | | | | | [place] [address] | Pacemaker; | | | | | [phone] | Sinoatrial node | | | | [...]
--- OUTSIDE RECORDS SUMMARY | ~2020-04-13 | XMS | Encounter Summary ---
Demographics + + + | Address | [address] | | | [place] [address] | + + + | Home Phone [...] Team Providers + +------+ + | Care Air Turning Machine Feeder Name | Role | Phone | + +------+ + PCP | Unavailable | + +------+ + Encounter Details +--------+ + + + + | Date | Type | Department | Care Team | Description | +--------+ + + + + | 09/24/ | [facility] | [facility] | Evan Gandara MD | | | 2005 | Encounter | MED CTR XRAY [address] | [address] [facility] | | | | | [place] | [place] | | | | | [place] [address] | [id number] | | | | | [phone] | | | +--------+ + + + [...] W | | | | | | [place], | | | | | | [place] [address] | | | | | | [phone] | | | | | | | | +--------+ + + + + | 05/01/ | Procedure | Cardiology | | | | 2019 | visit | | | | +--------+ + + + + | 05/01/ | Office | Cardiology | Silvia, | | | 2019 | Visit | | [address] | | | | | | [place], | | | | | | [place] [address] | | | | | | [phone] | | | | | | | | +--------+ + + + + | 05/21/ | Implant | Cardiology | Daljit Singletary, | Remote Device | 2019 | Monitor | | MD [address] [place] | Interrogation | | | | | [place], | (Primary Dx); | | | | | [place] [address] | Pacemaker; | | | | | [phone] | Sinoatrial node | | | | | | dysfunction (HCC) | | | | | | with symptomatic | | | | | | bradycardia | +--------+ + + + + documented as of this encounter Visit Diagnoses Not on filedocumented in this encounter"
--- OUTSIDE RECORDS SUMMARY | ~2020-04-13 | XMS | Encounter Summary ---
Demographics + + + | Address | [address] | | | [place] [address] | + + + | Home Phone [...] Team Providers + +------+ + | Care Geoint Analyst Name | Role | Phone | [...] + + | 10/25/ | Telephone | [facility] | [place]via, | Other (patient has | | 2013 | | CARDIOLOGY [address] | Janeen CASING OPERATOR [address] | changed his mind) | | | | [place], | [place], | | | | | [place] [address] | [place] [address] | | | | | [phone] | [phone] | | | | | | | [...] W | | | | | | [place], | | | | | | [place] [address] | | | | | | [phone] | | | | | | | | +--------+ + + + + | 05/01/ | Procedure | Cardiology | | | | 2019 | visit | | | | +--------+ + + + + | 05/01/ | Office | Cardiology | Silvia, | | | 2019 | Visit | | PARISA Vernon [address] | | | | | | [place], | | | | | | [place] [address] | | | | | | [phone] | | | | | | | | +--------+ + + + + | 05/21/ | Implant | Cardiology | Daljit Singletary, | Remote Device | | 2019 | Monitor | | [facility] | Interrogation | | | | | [place], | (Primary Dx); | | | | | [place] [address] | Pacemaker; | | | | | [phone] | Sinoatrial node | | | | | | dysfunction (HCC) | | | | | | with symptomatic | | | | | | bradycardia | +--------+ + + + + documented as of this encounter Visit Diagnoses Not on filedocumented in this encounter"
--- OUTSIDE RECORDS SUMMARY | ~2020-04-13 | XMS | Encounter Summary ---
Demographics + + + | Address | [address] | | | [place] [address] | + + + | Home Phone [...] Team Providers + +------+ + | Care Pediatrician/Medical Doctor Name | Role | Phone | + +------+ + PCP | Unavailable | + +------+ + Encounter Details +--------+ + + + + | Date | Type | Department | Care Team | Description | +--------+ + + + + | 06/03/ | Hospital | [facility] | | | | 2008 | Encounter | MED CTR EMERGENCY | | | | | | [place] [address] | | | | | | [place] | | | | | | [address] | | | | | | [phone] | | | +--------+ + + + [...] | | | | | | [place] [address] | | | | | | [phone] | | | | | | | | +--------+ + + + + | 05/01/ | Procedure | Cardiology | | | | 2019 | visit | | | | +--------+ + + + + | 05/01/ | Office | Cardiology | Silvia, | | | 2019 | Visit | | [address] | | | | | | [place], | | | | | | [place] [address] | | | | | | [phone] | | | | | | | | +--------+ + + + + | 05/21/ | Implant | Cardiology | Daljit Singletary, | Remote Device | 2019 | Monitor | | [address] | Interrogation | | | | | [place], | (Primary Dx); | | | | | [place] [address] | Pacemaker; | | | | | [phone] | Sinoatrial node | | | | | | dysfunction (HCC) | | | | | | with symptomatic | | | | | | bradycardia | +--------+ + + + + documented as of this encounter Visit Diagnoses Not on filedocumented in this encounter"
--- OUTSIDE RECORDS SUMMARY | ~2020-04-13 | XMS | Encounter Summary ---
Demographics + + + | Address | [address] | | | [place] [address] | + + + | Home Phone [...] Team Providers + +------+ + | Care Interactive Project Manager Name | Role | Phone [...] 2015 | | CARDIOLOGY [address] | LEGAL EXECUTIVE [address] | reprogramming/check | | | | [place], | St [place], [place] | DO NOT DELETE | | | | [place] [address] | [address] | (Primary Dx); | | | | [phone] | | Pacemaker - | | | [...] W | | | | | | [place], | | | | | | [place] [address] | | | | | | [phone] | | | | | | | | +--------+ + + + + | 05/01/ | Procedure | Cardiology | | | | 2019 | visit | | | | +--------+ + + + + | 05/01/ | Office | Cardiology | Silvia, | | | 2019 | Visit | | [address] | | | | | | [place], | | | | | | [place] [address] | | | | | | [phone] | | | | | | | | +--------+ + + + + | 05/21/ | Implant | Cardiology | Daljit Singletary, | Remote Device | | 2019 | Monitor | | [address] [facility] | Interrogation | | | | | [place], | (Primary Dx); | | | | | [place] [address] | Pacemaker; | | | | | [phone] | Sinoatrial node | | | | [...] | | 2. Coronary artery disease involving [place] coronary artery of | | | [place] heart without angina pectoris I25.10 414.01 ECHO [...]
--- OUTSIDE RECORDS SUMMARY | ~2020-04-13 | XMS | Encounter Summary ---
Demographics + + + | Address | [address] | | | [place] [address] | + + + | Home Phone [...] Providers + +------+ + | Care Corn Shucker Name | Role | Phone | + +------+ + PCP | Unavailable | + +------+ + Encounter Details +--------+ + + + + | Date | Type | Department | Care Team | Description | +--------+ + + + + | 02/01/ | [facility] | [facility] | Evan Gandara MD | | | 2008 - | Encounter | MED CTR MED ONC | [address] [facility] | | | | | [address] [place] | [place] | | | 02/06/ | | [place] [address] | [address] | | | 2008 | | [phone] | | | +--------+ + + + [...] | | | | | | [place], | | | | | | [place] [address] | | | | | | [phone] | | | | | | | | +--------+ + + + + | 05/01/ | Procedure | Cardiology | | | | 2019 | visit | | | | +--------+ + + + + | 05/01/ | Office | Cardiology | Silvia | | | 2019 | Visit | | PARISA Vernon [address] | | | | | | [place], | | | | | | [place] [address] | | | | | | [phone] | | | | | | | | +--------+ + + + + | 05/21/ | Implant | Cardiology | Daljit Singletary, | Remote Device | 2019 | Monitor | | MD [address] [place] | Interrogation | | | | | [place], | (Primary Dx); | | | | | [place] [address] | Pacemaker; | | | | | [phone] | Sinoatrial node | | | | | | dysfunction (HCC) | | | | | | with symptomatic | | | | | | bradycardia | +--------+ + + + + documented as of this encounter Visit Diagnoses Not on filedocumented in this encounter"
--- OUTSIDE RECORDS SUMMARY | ~2020-04-13 | XMS | Encounter Summary ---
Demographics + + + | Address | [address] | | | [place] [address] | + + + | Home Phone [...] + +------+ + | Care Clinical Research Technician Name | Role | Phone [...] | unspecified | MD Jacek | [place] | | | | | type | [address] | [place], | | | | | Unintentiona | [place] | [place] [address] | | | | | l weight | [place], [place] | Phone: | | | | | loss | [address] | [phone] | | | | | Procedures | Phone: | Fax: | | | | | [place] [facility] | [phone] | [phone] | | | | | INTRALUMINAL | Fax: | | | | | | | [phone] | | | | | | ESOPHAGUS-IL [...] (Primary Dx); | | | | [address] [place], [place] | [place] [address] | Unintentional weight | | | | [address] | [phone] | loss | | | | [phone] | | | +--------+ + + + [...] + documented as of this encounter Progress iLsa Collins RN - 11/10/2019 8:39 AM PSTDr. [...] | | | | | | [place] [address] | | | | | | [phone] | | | | | | | | +--------+ + + + + | 05/01/ | Procedure | Cardiology | | | 2019 | visit | | | | +--------+ + + + + | 05/01/ | Office | Cardiology | Silvia, | | | 2019 | Visit | | PARISA Vernon [address] | | | | | | [place], | | | | | | [place] [address] | | | | | | [phone] | | | | | | | | +--------+ + + + + | 05/21/ | Implant | Cardiology | Daljit Singletary, | Remote Device | | 2019 | Monitor | | [address] [place] | Interrogation | | | | | [place], | (Primary Dx); | | | | | [place] [address] | Pacemaker; | | | | | [phone] | Sinoatrial node | | | | [...]
--- OUTSIDE RECORDS SUMMARY | ~2020-04-13 | XMS | Encounter Summary ---
Demographics + + + | Address | [address] | | | [place] [address] | + + + | Home Phone [...] Team Providers + +------+ + | Care Cooperage Shop Supervisor Name | Role | Phone [...] | (Primary Dx); | | | | [place], | [place], | Bradycardia; HTN | | | | [place] [address] | [place] [address] | (hypertension) | | | | [phone] | [phone] | | | | | | | [...] at which time patient was going to [place] for legal process specialist co nsult and PVC ablation. Since [...] tablet Take 1,000 mg by mouth Daily. [place]-3 Fatty Acids (SALMON OIL-1000 PO) CAPS, [...] performed by Dr. Gambino at [facility] on 01/30/2013. Patient had spontaneous [...] to go back in 3 days to [place] for an attempt of ablation under general [...] He is in a class II of [place] [employer] functional class. There is no [...] been encouraged to keep his appointment with legal process specialist this coming to attempt ablation therapy. 4. Follow up appointment in 4-6 weeks. I, PARISA Russell, saw this patient under the direct supervision of Daljit Singletary MD Portions of this report were transcribed using voice recognition software. Every effort wa s made to ensure accuracy; however, inadvertent computerized packing machine can feeder errors may be pre sent. documented in this encounter Plan of Treatment +--------+ + + + + | Date | Type | Specialty | Care Team | Description | +--------+ + + + + | 05/01/ | Appointment | Radiology | Silvia, | | | 2019 | | | PARISA [place] [address] | | | | | | [place], | | | | | | [place] [address] | | | | | | [phone] | | | | | | | | +--------+ + + + + | 05/01/ | Procedure | Cardiology | | | | 2019 | visit | | | | +--------+ + + + + | 05/01/ | Office | Cardiology | Silvia, | | | 2019 | Visit | | [address] | | | | | | [place], | | | | | | [place] [address] | | | | | | [phone] | | | | | | | | +--------+ + + + + | 05/21/ | Implant | Cardiology | Daljit Singletary, | Remote Device | 2019 | Monitor | | [address] [place] | Interrogation | | | | | [place], | (Primary Dx); | | | | | [place] [address] | Pacemaker; | | | | | [phone] | Sinoatrial node | | | | [...]
--- OUTSIDE RECORDS SUMMARY | ~2020-04-13 | XMS | Encounter Summary ---
Demographics + + + | Address | [address] | | | [place] [address] | + + + | Home Phone [...] Providers + +------+ + | Care Plant Operations Engineer Name | Role | Phone [...] | | CENTER [address] | [address] | | | | | [place] | [place] | | | | | [address] | [address] | | | | | [phone] | | | +--------+ + + + [...] + + + +---------+ + + | Bang[place]-3 Fatty | CAPS, one capsule by | [...] | | | | | | | picayune coronary | | | | | | | artery of picayune | | | | | | | [...] | | | | | | [place] [address] | | | | | | [phone] | | | | | | | [...] | | | | | | [place] [address] | | | | | | [phone] | | | | | | | | +--------+ + + + + | 05/21/ | Implant | Cardiology | Daljit Singletary, | Remote Device | 2019 | Monitor | | MD [address] [place] | Interrogation | | | | | [place], | (Primary Dx); | | | | | [place] [address] | Pacemaker; | | | | | [phone] | Sinoatrial node | | | | [...] | | | | [employer] [place] [employer] | | | | | [...] [address] | [place] | [phone] | | [facility] | | [address] | | | - LABORATORY | | [...] + | [address] | [address] | [place] | [phone] | | [facility] | | [address] | | | - LABORATORY | | [...] use as of January 18, | | [facility] | | | | 2019. Check reference [...] [address] | [place] | [phone] | | [facility] | | [address] | | | - LABORATORY | | [...] | 0.92 | 0.70 - 1.30 | [facility] | | | | | mg/dL | [facility] | | | | | | MEDICAL | | | | | | CENTER - | | | | | | LABORATORY | | + + + + + + | eGFR if not | >60Comment: GLOMERULAR | >=60 | [facility] | | | | FILTRATION | mL/min/1.73m2 | [facility] | | | [place] | RATE,ESTIMATED | | MEDICAL | | | | mL/min/1.23v9Vaps than | | CENTER - | | [...] ST. | [address] | [place], [place] | [phone] | | [facility] | | [address] | | | - LABORATORY | | [...] [address] | [place] | [phone] | | [facility] | | [address] | | | - LABORATORY | | [...] [address] | [place] | [phone] | | [facility] | | [address] | | | - LABORATORY | | [...] | | | | ANGELA MARADIAGA MD ([id number]) | | | | | | on [...] | | | | | Patient Address: [address] [place] [address] | | | | | | | [place] [address], | | | | | | + + + +------+---+---+ +---+---+ | | | +---+---+ documented in this encounter
--- OUTSIDE RECORDS SUMMARY | ~2020-04-13 | XMS | Encounter Summary ---
Demographics + + + | Address | [address] | | | [place] [address] | + + + | Home Phone [...] Providers + +------+ + | Care Electronics Assembler Name | Role | Phone | + +------+ + | Michael Amanda DO | PCP | | + +------+ + Encounter Details +--------+ + + + + | Date | Type | Department | Care Team | Description | +--------+ + + + + | 06/26/ | Hospital | [facility] | Michael Amanda, | Diplopia | | 2012 | Encounter | MED CTR LABORATORY | DO [address] | | | | | [address] [place] | [place], [place] | | | | | [place], [place] | [address] | | | | | [address] | | | | | | [phone] | | | +--------+ + + + [...] + + + +---------+ + + | Coy[place]-3 Fatty | CAPS, one capsule by | [...] | | | | | | [place], | | | | | | [place] [address] | | | | | | [phone] | | | | | | | | +--------+ + + + + | 05/01/ | Procedure | Cardiology | | | | 2019 | visit | | | | +--------+ + + + + | 05/01/ | Office | Cardiology | Silvia, | | | 2019 | Visit | | PARISA [place] W | | | | | | [place], | | | | | | [place] [address] | | | | | | [phone] | | | | | | | | +--------+ + + + + | 05/21/ | Implant | Cardiology | Daljit Singletary, | Remote Device | | 2020 | Monitor | | MD [address] [facility] | Interrogation | | | | | [place], | (Primary Dx); | | | | | [place] [address] | Pacemaker; | | | | | [phone] | Sinoatrial node | | | | [...] | mg/L indicate possible | | [facility] | | | | infection, [...] [address] | [place] | [phone] | | [facility] | | [address] | | | - LABORATORY | | | | + + + + + | [facility] | [address] | [place], [place] | | | [facility] | | [address], [facility] | | | - [...] performed on the Javid | uIU/mL | [facility] | | | | [employer] [employer] | | MEDICAL | | | [...] | [facility] | [address] | [place] | [phone] | | [facility] | | [address] | | | - LABORATORY | | | | + + + + + | [facility] | [address] | [place], [place] | | | [facility] | | [address] [place] [address] | | | - LABORATORY | | [...] | [facility] | [address] | [place] | [phone] | | [facility] | | [address] | | | - LABORATORY | | | | + + + + + | [facility] | [address] | [place], [place] | | | [facility] | | [address], [facility] | | | - [...] + + | Performing | Address | City/[facility]/Zipcode | Phone Number | | Organization | | | | + + + + + | [facility] | [address] | [place], [place] | [phone] | | [facility] | | [address] | | | - LABORATORY | | | | + + + + + | [facility] | [address] | [place] | | | [facility] | | [address], [facility] | | | - [...] | [facility] | [address] | [place] | [phone] | | [facility] | | [address] | | | - LABORATORY | | | | + + + + + | [facility] | [address] | [place], [place] | | | [facility] | | [address] [place] [address] | | | - LABORATORY | | [...] | [facility] | [address] | [place] | [phone] | | [facility] | | [address] | | | - LABORATORY | | | | + + + + + | [facility] | [address] | [place] | | | [facility] | | [id number] [place] [address] | | | - LABORATORY | | | | + + + + + documented in this encounter Visit Diagnoses + + | Diagnosis | + + | Diplopia | + + documented in this encounter"
--- OUTSIDE RECORDS SUMMARY | ~2020-04-13 | XMS | Encounter Summary ---
Demographics + + + | Address | [address] | | | [place] [address] | + + + | Home Phone [...] Team Providers + +------+ + | Care Political Worker Name | Role | Phone | + +------+ + | Krik French MD | PCP | | + +------+ + Reason for Visit + + + | Reason | Comments | + + + | Results, Pathology | egd,colon | + + + Encounter Details +--------+ + + + + | Date | Type | Department | Care Team | Description | +--------+ + + + + | 01/03/ | Telephone | [facility] | Emmanuel Daniel MD | Results, Pathology | | 2018 | | GASTROENTEROLOGY | [address], [place] | (egd,colon) | | | | [address] [place] | [address] [place], [place] | | | | | [address] [place], [place] | [address] | | | | | [address] | | | | | | [phone] | | | +--------+ + + + [...] | | | | | | [place] [address] | | | | | | [phone] | | | | | | | | +--------+ + + + + | 05/01/ | Procedure | Cardiology | | | | 2020 | visit | | | | +--------+ + + + + | 06/10/ | Office | Cardiology | Sil[place], | | | 2019 | Visit | | [address] | | | | | | [place], | | | | | | [place] [address] | | | | | | [phone] | | | | | | | | +--------+ + + + + | 05/21/ | Implant | Cardiology | Daljit Singletary, | Remote Device | 2019 | Monitor | | [address] | Interrogation | | | | | [place], | (Primary Dx); | | | | | [place] [address] | Pacemaker; | | | | | [phone] | Sinoatrial node | | | | | | dysfunction (HCC) | | | | | | with symptomatic | | | | | | bradycardia | +--------+ + + + + documented as of this encounter Visit Diagnoses Not on filedocumented in this encounter"
--- OUTSIDE RECORDS SUMMARY | ~2020-04-13 | XMS | Encounter Summary ---
Demographics + + + | Address | [address] | | | [place] [address] | + + + | Home Phone [...] | ER FUP | [address] | [address] [place] [address] | | | | | Procedures | [place], | [place], | | | | | FUP | [place] [address] | [place] [address] | | | | | | Phone: | Phone: | | | | | | [phone] | [phone] | | | | | | Fax: | Fax: | | | | | | [phone] | [phone] | +--------+--------+ + + + + Encounter Details +--------+---------+ + + + | Date | Type | Department | Care Team | Description | +--------+---------+ + + + | 02/11/ | Office | [facility] [place] | [place], | Coronary artery | | 2016 | Visit | CARDIOLOGY [address] | Janeen GAS LEAK INSPECTOR [address] | disease involving | | | | [place], | [place], | quechan coronary | | | | [place] [address] | [place] [address] | artery of quechan | | | | [phone] | [phone] | heart without angina | | | [...] of non-critical coronary artery d isease involving quechan coronary artery of quechan heart without angina pectoris, essential h ypertension, [...] him. He sleeps on [address] [facility] without any shortness of breath. Overall, he has been doing well otherwise than the [facility] iety. MEDICAL, SURGICAL, AND PERSONAL [...] Coronary artery disease involving quechan coronary artery of quechan heart without angina pectoris Cannabis abuse, daily [...] by mouth every evening 90 tablet 3 [facility] Natural Products (OSTEO BI-FLEX/5-LOXIN [...] 3RD DOSE, CALL 911 100 tablet 3 [place]-3 Fatty Acids (SALMON OIL-1000 PO) CAPS, one [...] was found Confirmed by ANGELA MARADIAGA MD ([id number]) on 01/25/2017 6:45:26 AM LAB RESULTS reviewed during visit today primarily from [facility]: LIPID Lab Results Component Value Date [...] PLTEX 162 11/05/2016 I reviewed records from [facility] for emergency department visit o n 01/2017 which is summarized in the HPI. Above data and testing is reviewed this visit; testing below is historical data unless othe rwise specified. ASSESSMENT: 1. Essential hypertension with goal blood pressure less than 130/80: A. Today it has been well controlled 110 mmHg. He is in class I of t he [place] Heart Association functional class. On physical examination there are no signs of fluid overload. 2. Non-critical Coronary artery disease involving quechan coronary a rtery of quechan heart without angina pectoris: A. Normal exercise [...] to go back in 3 days to [place] for an attempt of ablation under general [...] a normal stable device function. Estimated remaining [facility] longevity is 3.5 years.. 5. [...] | | | | | | [place] [address] | | | | | | [phone] | | | | | | | | +--------+ + + + + | 05/01/ | Procedure | Cardiology | | | | 2019 | visit | | | | +--------+ + + + + | 05/01/ | Office | Cardiology | Silvia, | | | 2019 | Visit | | PARISA Vernon [address] | | | | | | [place], | | | | | | [place] [address] | | | | | | [phone] | | | | | | | | +--------+ + + + + | 05/21/ | Implant | Cardiology | Daljit Singletary, | Remote Device | | 2019 | Monitor | | [address] [place] | Interrogation | | | | | [place], | (Primary Dx); | | | | | [place] [address] | Pacemaker; | | | | | [phone] | Sinoatrial node | | | | | | dysfunction (HCC) | | | | | | with symptomatic | | | | | | bradycardia | +--------+ + + + + documented as of this encounter Visit Diagnoses + + | Diagnosis | + + | Coronary artery disease involving quechan coronary artery of quechan heart without | | angina pectoris - Primary | + + | Essential hypertension with goal blood pressure less than 130/80 | + + | Hyperlipidemia, mixed Mixed hyperlipidemia | + + documented in this encounter
--- OUTSIDE RECORDS SUMMARY | ~2020-04-13 | XMS | Encounter Summary ---
Demographics + + + | Address | [address] | | | [place] [address] | + + + | Home Phone [...] Providers + +------+ + | Care Gas Processing Plant Operator Name | Role | Phone [...] 2019 | | GASTROENTEROLOGY | [address] [place] | | | | | [address] [place] | [address] [place], [place] | | | | | [address] [place], [place] | [address] | | | | | [address] | | | | | | [phone] | | | +--------+ + + + [...] | | | | | | [place] [address] | | | | | | [phone] | | | | | | | | +--------+ + + + + | 05/01/ | Procedure | Cardiology | | | | 2019 | visit | | | | +--------+ + + + + | 05/01/ | Office | Cardiology | Silvia, | | | 2019 | Visit | | PARISA Vernon [address] | | | | | | [place], | | | | | | [place] [address] | | | | | | [phone] | | | | | | | | +--------+ + + + + | 05/21/ | Implant | Cardiology | Daljit Singletary, | Remote Device | | 2019 | Monitor | | [address] [facility] | Interrogation | | | | | [place], | (Primary Dx); | | | | | [place] [address] | Pacemaker; | | | | | [phone] | Sinoatrial node | | | | | | dysfunction (HCC) | | | | | | with symptomatic | | | | | | bradycardia | +--------+ + + + + documented as of this encounter Visit Diagnoses Not on filedocumented in this encounter"
--- OUTSIDE RECORDS SUMMARY | ~2020-04-13 | XMS | Encounter Summary ---
Demographics + + + | Address | [address] | | | [place] [address] | + + + | Home Phone [...] Team Providers + +------+ + | Care Needle Bar Molder Name | Role | Phone | [...] W | | | | | [place], | [place], | | | | | [place] [address] | [place] [address] | | | | | [phone] | [phone] | | | | | | | [...] | | | | | | [place] [address] | | | | | | [phone] | | | | | | | | +--------+ + + + + | 05/01/ | Procedure | Cardiology | | | | 2019 | visit | | | | +--------+ + + + + | 05/01/ | Office | Cardiology | [place]via | | | 2019 | Visit | | Janeen, PROOF TECHNICIAN [address] | | | | | | [place], | | | | | | [place] [address] | | | | | | [phone] | | | | | | | | +--------+ + + + + | 05/21/ | Implant | Cardiology | Daljit Singletary, | Remote Device | | 2020 | Monitor | | [place] | Interrogation | | | | | [place], | (Primary Dx); | | | | | [place] [address] | Pacemaker; | | | | | [phone] | Sinoatrial node | | | | | | dysfunction (HCC) | | | | | | with symptomatic | | | | | | bradycardia | +--------+ + + + + documented as of this encounter Visit Diagnoses Not on filedocumented in this encounter"
--- OUTSIDE RECORDS SUMMARY | ~2020-04-13 | XMS | Encounter Summary ---
Demographics + + + | Address | [address] | | | [place] [address] | + + + | Home Phone [...] Providers + +------+ + | Care Molder Inflated Ball Name | Role | Phone | + [...] Refill | | 2014 | | [facility] [place] | DO [address] | | | | | [address] | [place] | | | | | [place], [place] | [address] | | | | | [address] | | | | | | [phone] | | | +--------+--------+ + + + [...] W | | | | | | [place], | | | | | | [place] [address] | | | | | | [phone] | | | | | | | | +--------+ + + + + | 05/01/ | Procedure | Cardiology | | | | 2019 | visit | | | | +--------+ + + + + | 05/01/ | Office | Cardiology | Silvia, | | | 2019 | Visit | | PARISA Vernon W | | | | | | [place], | | | | | | [place] [address] | | | | | | [phone] | | | | | | | | +--------+ + + + + | 05/21/ | Implant | Cardiology | Daljit Singletary, | Remote Device | | 2019 | Monitor | | [address] [place] | Interrogation | | | | | [place], | (Primary Dx); | | | | | [place] [address] | Pacemaker; | | | | | [phone] | Sinoatrial node | | | | | | dysfunction (HCC) | | | | | | with symptomatic | | | | | | bradycardia | +--------+ + + + + documented as of this encounter Visit Diagnoses Not on filedocumented in this encounter"
--- OUTSIDE RECORDS SUMMARY | ~2020-04-13 | XMS | Encounter Summary ---
Demographics + + + | Address | [address] | | | [place] [address] | + + + | Home Phone [...] Providers + +------+ + | Care Career Development Associate Name | Role | Phone | + +------+ + | Kirk French MD | PCP | | + +------+ + Encounter Details +--------+ + + + + | Date | Type | Department | Care Team | Description | +--------+ + + + + | 01/05/ | Anesthesia | [facility] | Jarett Barakat | | | 2019 | Event | MED CTR MP INTRA OP | P, MD [address] | | | | | [address] | [address] [place], [place] | | | | | [place], [place] | [address] | | | | | [address] | [phone] | | | | | [phone] | | | +--------+ + + + [...] and consent obtained. Patient transported to [facility], | | | 4 | [...] | 01/05/19950 by | | eral | [id number] catheter system; | Kasie Natarajan RN | [...] | | | | | | [place] [address] | | | | | | [phone] | | | | | | | | +--------+ + + + + | 05/01/ | Procedure | Cardiology | | | | 2019 | visit | | | | +--------+ + + + + | 05/01/ | Office | Cardiology | Silvia, | | | 2019 | Visit | | PARISA Vernon W | | | | | | [place], | | | | | | [place] [address] | | | | | | [phone] | | | | | | | | +--------+ + + + + | 05/21/ | Implant | Cardiology | Daljit Singletary, | Remote Device | 2019 | Monitor | | [place] [address] [place] | Interrogation | | | | | [place], | (Primary Dx); | | | | | [place] [address] | Pacemaker; | | | | | [phone] | Sinoatrial node | | | | [...]
--- OUTSIDE RECORDS SUMMARY | ~2020-04-13 | XMS | Encounter Summary ---
Demographics + + + | Address | [address] | | | [place] [address] | + + + | Home Phone [...] Team Providers + +------+ + | Care Cooling Pipe Inspector Name | Role | Phone | + +------+ + PCP | Unavailable | + +------+ + Encounter Details +--------+ + + + + | Date | Type | Department | Care Team | Description | +--------+ + + + + | 02/28/ | [facility] | [facility] | Geri Angel, | | | 2011 | Encounter | MED CTR XRAY [address] | TOOL SUPERVISOR [address] [place] | | | | | [place] | [address] [place] | | | | | [place] [address] | [address] | | | | | [phone] | | | +--------+ + + + [...] W | | | | | | [place], | | | | | | [place] [address] | | | | | | [phone] | | | | | | | | +--------+ + + + + | 05/01/ | Procedure | Cardiology | | | | 2019 | visit | | | | +--------+ + + + + | 05/01/ | Office | Cardiology | Silvia, | | | 2019 | Visit | | PARISA Vernon W | | | | | | [place], | | | | | | [place] [address] | | | | | | [phone] | | | | | | | | +--------+ + + + + | 05/21/ | Implant | Cardiology | Daljit Singletary, | Remote Device | | 2019 | Monitor | | [address] [place] | Interrogation | | | | | [place], | (Primary Dx); | | | | | [place] [address] | Pacemaker; | | | | | [phone] | Sinoatrial node | | | | [...] | [facility] Diagnostic Imaging Department | [facility] | | [address] [facility] | [facility] | | LEFT HEART CATHETERIZATION | [facility] | | REPORT 02/29/2012 HEMODYNAMICS: Aortic pressure [...] was taken to | | | Cardiac Aircraft Detail Draftsperson. He was prepared and draped in the usual fashion | | | under a sterile technique and local anesthesia, percutaneous access | | | was obtained using #6- Ethiopian sheath in the right femoral artery. | | | Right heart cath was not performed in this patient. Left | | | ventriculography was performed using #6-Ethiopian pigtail catheter. | | | The selective coronary angiography were then performed in several | | | sagittal and oblique projection using the 6-Ethiopian JL 4 and #6 Ethiopian | | | 3DRC diagnostic catheters. The [...] Transcribed | | | Date/Time: 02/29/2012 09:09 Superintendent Horticulture: | | | <Electronically Signed by Daljit Singletary MD [facility]> 02/29/12 | | | 1002 | | + + + + + | Procedure Note | + + | Kalpesh Brown Conversion - 12/29/2013 5:04 PM [facility] | | Diagnostic Imaging Department | | [address] [facility] | | | | | | | [...] patient was taken to Cardiac | | Aircraft Detail Draftsperson. He was prepared and draped in the usual fashion under a sterile | | technique and local anesthesia, percutaneous access was obtained using #6- | | Ethiopian sheath in the right femoral artery. Right heart cath was not performed | | in this patient. Left ventriculography was performed using #6-Ethiopian pigtail | | catheter. The selective coronary angiography were then performed in several | | sagittal and oblique projection using the 6-Ethiopian JL 4 and #6 Ethiopian 3DRC | | diagnostic catheters. The patient [...] | Transcribed Date/Time: 02/29/2012 09:09 | | Superintendent Horticulture: | | <Electronically Signed by Daljit Singletary [...]
--- OUTSIDE RECORDS SUMMARY | ~2020-04-13 | XMS | Encounter Summary ---
Demographics + + + | Address | [address] | | | [place] [address] | + + + | Home Phone [...] Team Providers + +------+ + | Care Geometrician Name | Role | Phone | + [...] + + | 10/23/ | Office | [facility] | [place], | CAD (coronary artery | | 2013 | Visit | CARDIOLOGY [address] | PARISA Vernon [address] | disease) (Primary | | | | [place], | [place], | Dx); Other chest | | | | [place] [address] | [place] [address] | pain; Chest pain; | | | | [phone] | [phone] | Coronary artery | | | | [...] Sanchez Date: October 23, 2014 : 1960 Open Hearth Furnace Operator Helper: Kailey Pruitt RN Device Personal Development Educator: POI Sense (mV) Impedance (?) Capture (V) Capture (ms) A Lead 2.80-4.00 407 1.500 0.09 RV Lead 22.40-31.36 519 2.000 0.09 LV Lead Battery Impedance (?): 658 Battery Voltage (V): 2.79 TN Interval (ms): 155 AR Interval (ms): 240 VA Conduction: Mode Switch Events: 1 % of time: <0.1 -ENGINEERING SPECIALIST: <0.1% AP-ENGINEERING SPECIALIST: <0.1% -VS: 13.8% AP-VS: 86.1% ENGINEERING SPECIALIST: Magnetic Rate: 85 LINDA: 65 LEAH: [...] Kailey Pruitt RN 10/23/2014 15:22 ames Janeen, PATTERN REPAIR PERSON - 10/23/2014 2:22 PM PST PATIENT NAME: [...] needed for Chest pain. 25 tablet 12 [place]-3 Fatty Acids (SALMON OIL-1000 PO) CAPS, one [...] cannot completely be ruled out. D. [facility] 12/25/13, shows non critical coronary [...] He is i n class I-II of [place] Heart Association functional class. There are no [...] to go back in 3 days to [place] for an attempt of ablation under general [...] dizziness. He is in class I-II of [place] Heart Association functional class. There are n [...] this chart may have been created with Hively voice recognition software. Occasi onal wrong-word or [...] W | | | | | | [place], | | | | | | [place] [address] | | | | | | [phone] | | | | | | | | +--------+ + + + + | 05/01/ | Procedure | Cardiology | | | | 2019 | visit | | | | +--------+ + + + + | 05/01/ | Office | Cardiology | Silvia, | | | 2019 | Visit | | PARISA Vernon [address] | | | | | | [place], | | | | | | [place] [address] | | | | | | [phone] | | | | | | | | +--------+ + + + + | 05/21/ | Implant | Cardiology | Daljit Singletary, | Remote Device | | 2019 | Monitor | | [address] [place] | Interrogation | | | | | [place], | (Primary Dx); | | | | | [place] [address] | Pacemaker; | | | | | [phone] | Sinoatrial node | | | | [...] 23, 2014 : | | | 1960 Open Hearth Furnace Operator Helper: Kailey Pruitt RN Device Personal Development Educator: | | | Storyworks OnDemandtronic Sense (mV) Impedance (?) Capture (V) Capture (ms) A | | | Lead 2.80-4.00 407 1.500 0.09 RV Lead 22.40-31.36 519 2.000 0.09 | | | LV Lead Battery Impedance (?): 658 Battery Voltage (V): 2.79 | | | TN Interval (ms): 155 AR Interval (ms): 240 VA Conduction: Mode | | | Switch Events: 1 % of time: <0.1 -ENGINEERING SPECIALIST: <0.1% AP-ENGINEERING SPECIALIST: <0.1% -VS: | | | 13.8% AP-VS: 86.1% ENGINEERING SPECIALIST: Magnetic Rate: 85 LINDA: 65 LEAH: [...] | | Date: October 23, 2015DOB: 1960 Open Hearth Furnace Operator Helper: Kailey Pruitt RNDevice Personal Development Educator: | | Medtronic Sense (mV) Impedance (?) Capture (V) Capture (ms) A Lead 2.80-4.00 407 1.500 | | 0.09 RV Lead 22.40-31.36 519 2.000 0.09 LV Lead Battery Impedance (?): 658 Battery | | Voltage (V): 2.79 TN Interval (ms): 155 AR Interval (ms): 240 VA Conduction: Mode | | Switch Events: 1 % of time: <0.1 -ENGINEERING SPECIALIST: <0.1% AP-ENGINEERING SPECIALIST: <0.1% -VS: 13.8% AP-VS: 86.1% ENGINEERING SPECIALIST: | | Magnetic Rate: 85 LINDA: 65 [...] of unspecified type | | of vessel, cowlitz or graft | + + | Other chest pain | + + | Chest pain Chest pain, unspecified | + + | Coronary artery disease Coronary atherosclerosis of unspecified type of vessel, | | cowlitz or graft | + + | Pacemaker [...]
--- OUTSIDE RECORDS SUMMARY | ~2020-04-13 | XMS | Encounter Summary ---
Demographics + + + | Address | [address] [place] [address] [address] | | | [place] [address] | + + + | Home Phone [...] [place] | | | | | [address] | | + + + + + Care Team Providers + +------+ + | Care Awning Maker And Installer Name | Role | Phone | [...] | | | | | Unintentiona | [place], [place] | | | | | | l weight | [address] | | | | | | loss | Phone: | | | | | | Procedures | [phone] | | | | | | CONSULT TO | Fax: | | | | | | NON - IVETTE | [phone] | | | | | | PROVIDER [...] at [facility] [address] | MD [address] | normal, recommend | | | | [address] | [place], [place] | hyoscyamine) | | | | Mailcode: [place] | [address] | | | | | for Health and | [phone] | | | | | [facility] [address] | | | | | | [place], [place] | | | | | | [address] | | | | | | [phone] | | | +--------+ + + + [...]
--- OUTSIDE RECORDS SUMMARY | ~2020-04-13 | XMS | Encounter Summary ---
Demographics + + + | Address | [address] | | | [place] [address] | + + + | Home Phone [...] Team Providers + +------+ + | Care Convention Planner Name | Role | Phone | [...] + | 06/27/ | Telephone | [facility] | Michael Amanda, | ED Follow-up (s/p | | 2014 | | MEDICINE [place] | DO [address] | [facility] | | | | [address] | [place] | | | | | [place] | [address] | | | | | [address] | | | | | | [phone] | | | +--------+ + + + [...] | | | | | | [place] [address] | | | | | | [phone] | | | | | | | [...] | | | | | | [place] [address] | | | | | | [phone] | | | | | | | | +--------+ + + + + | 05/21/ | Implant | Cardiology | Daljit Singletary, | Remote Device | | 2019 | Monitor | | [address] [facility] | Interrogation | | | | | [place], | (Primary Dx); | | | | | [place] [address] | Pacemaker; | | | | | [phone] | Sinoatrial node | | | | | | dysfunction (HCC) | | | | | | with symptomatic | | | | | | bradycardia | +--------+ + + + + documented as of this encounter Visit Diagnoses Not on filedocumented in this encounter"
--- OUTSIDE RECORDS SUMMARY | ~2020-04-13 | XMS | Encounter Summary ---
Demographics + + + | Address | [address] | | | [place] [address] | + + + | Home Phone [...] Providers + +------+ + | Care Firer Boiler Name | Role | Phone | [...] 2012 | | CARDIOLOGY [address] | [address] RADIO INSTALLER [address] [place] | to be referred | | | | [place], | [place], [place] | soon) | | | | [place] [address] | [address] | | | | | [phone] | | | +--------+ + + + [...] | | | | | | [place] [address] | | | | | | [phone] | | | | | | | | +--------+ + + + + | 05/01/ | Procedure | Cardiology | | | | 2019 | visit | | | | +--------+ + + + + | 05/01/ | Office | Cardiology | Silvia, | | | 2019 | Visit | | PARISA Vernon W | | | | | | [place], | | | | | | [place] [address] | | | | | | [phone] | | | | | | | | +--------+ + + + + | 05/21/ | Implant | Cardiology | Daljit Singletary, | Remote Device | | 2020 | Monitor | | [address] [facility] | Interrogation | | | | | [place], | (Primary Dx); | | | | | [place] [address] | Pacemaker; | | | | | [phone] | Sinoatrial node | | | | | | dysfunction (HCC) | | | | | | with symptomatic | | | | | | bradycardia | +--------+ + + + + documented as of this encounter Visit Diagnoses Not on filedocumented in this encounter"
--- OUTSIDE RECORDS SUMMARY | ~2020-04-13 | XMS | Encounter Summary ---
Demographics + + + | Address | [address] | | | [place] [address] | + + + | Home Phone [...] Providers + +------+ + | Care Recreational Resort Manager Name | Role | Phone | [...] + + | 09/01/ | Office | [facility] | Silvia, | Ascending thoracic | | 2015 | Visit | CARDIOLOGY [address] | PARISA [address] | aortic aneurysm | | | | [place], | [place], | ([facility]) (Primary Dx); | | | | [place] [address] | [place] [address] | Coronary artery | | | | [phone] | [phone] | disease involving | | | | | | akiak coronary | | | | | | artery of [place]kiak | | | | | | heart [...] of this encounter Patient Instructions Patient Instructions Jnaeen Ramirez ARNP - 09/01/2016 4:03 PM PDT1. [...] 1960: AGE: 56 y.o. PRIMARY CARE: Kirk Frecnh MD OUTPATIENT FOLLOW UP VISIT Date of Service: 09/01/2016 HISTORY OF PRESENT ILLNESS: Moe Sanchez is a 56 y.o. male with a history of non-critical coronary artery d isease involving [place]kiak coronary artery of [place]ki[place] heart without angina pectoris, essential h ypertension, [...] episode of chest pain while nelly ng [facility], so he took some sublingual nitroglycerin and [...] Preventative health care Coronary artery disease involving akiak coronary artery of [place]ki[place] heart without angina pectoris Cannabis abuse, daily [...] by mouth every evening 90 tablet 3 [facility] [...] 3rd dose, call 911 100 tablet 3 [place]-3 Fatty Acids (SALMON OIL-1000 PO) CAPS, one capsule by mouth daily twice daily [facility] Check glucose as [...] RESULTS reviewed during visit today primarily from [facility]: LIPID Lab Results Component Value Date [...] PLTEX 129* 05/12/2016 I reviewed records from [facility] for office visit on 06/2016 [facility] ch is summarized in the [...] He is in class II of the [place] Heart Ass ociation functional class. On physical examination there are no signs of fluid overload. The plan will be to lose weight, modify portion control, start exercising, limit sodium in take and we will start losartan 25 mg once a day with a close monitoring of blood pressure. 2. Non-critical Coronary artery disease involving akiak coronary artery of [place]kiak heart [facility] angina pectoris: [...] arrhythmia performed by Dr. Gambino at [facility] on 01/30/2013. Patient [...] to go back in 3 days to [place] for an attempt of ablation under general [...] this chart may have been created with SageQuest voice recognition software. Occasi onal wrong-word or [...] | | | | | | [place] [address] | | | | | | [phone] | | | | | | | | +--------+ + + + + | 05/01/ | Procedure | Cardiology | | | 2019 | visit | | | | +--------+ + + + + | 05/01/ | Office | Cardiology | Silvia, | | | 2019 | Visit | | PARISA Vernon [address] | | | | | | [place], | | | | | | [place] [address] | | | | | | [phone] | | | | | | | | +--------+ + + + + | 05/21/ | Implant | Cardiology | Daljit Singletary, | Remote Device | | 2019 | Monitor | | [address] [place] | Interrogation | | | | | [place], | (Primary Dx); | | | | | [place] [address] | Pacemaker; | | | | | [phone] | Sinoatrial node | | | | [...] + + | Coronary artery disease involving akiak coronary artery of akiak heart without | | angina pectoris | + + | Essential hypertension with goal blood pressure less than 130/80 | + + | Hyperlipidemia, mixed Mixed hyperlipidemia | + + documented in this encounter
--- OUTSIDE RECORDS SUMMARY | ~2020-04-13 | XMS | Encounter Summary ---
Demographics + + + | Address | [address] | | | [place] [address] | + + + | Home Phone [...] Team Providers + +------+ + | Care Multiple Drum Sander Helper Name | Role | Phone | [...] Refill | | 2013 | | MEDICINE ELYSIAN FIELDS | DO [address] | | | | | [address] | [place] | | | | | [place] | [address] | | | | | [address] | | | | | | [phone] | | | +--------+--------+ + + + [...] W | | | | | | [place], | | | | | | [place] [address] | | | | | | [phone] | | | | | | | | +--------+ + + + + | 05/01/ | Procedure | Cardiology | | | | 2019 | visit | | | | +--------+ + + + + | 05/01/ | Office | Cardiology | Silvia, | | | 2019 | Visit | | PARISA Vernon W | | | | | | [place], | | | | | | [place] [address] | | | | | | [phone] | | | | | | | | +--------+ + + + + | 05/21/ | Implant | Cardiology | Daljit Singletary, | Remote Device | | 2019 | Monitor | | [facility] | Interrogation | | | | | [place], | (Primary Dx); | | | | | [place] [address] | Pacemaker; | | | | | [phone] | Sinoatrial node | | | | | | dysfunction (HCC) | | | | | | with symptomatic | | | | | | bradycardia | +--------+ + + + + documented as of this encounter Visit Diagnoses Not on filedocumented in this encounter"
--- OUTSIDE RECORDS SUMMARY | ~2020-04-13 | XMS | Encounter Summary ---
Demographics + + + | Address | [address] | | | [place] [address] | + + + | Home Phone [...] Team Providers + +------+ + | Care Spice Blender Name | Role | Phone | [...] | Aneurysmal | Silvia, | [address] [place] | | | | | dilatation | PARISA Solis | [place], | | | | | ([facility]) | [address] | [place] | | | | | Procedures | [place] | [address] | | | | | ECHO | [place], | Phone: | | | | | Complete | [place] | [phone] | | | | | | [address] | Fax: | | | | | | Phone: | [phone] | | | | | | [phone] | | | | | | | Fax: | | | | | | | [phone] | | +--------+--------+ + + + + [...] | | | | | Aneurysmal | [place]ell, | [address] [place] | | | | | dilatation | PARISA Solis | [place], | | | | | ([facility]) | [address] | [place] | | | | | Procedures | [place] | [address] | | | | | ECHO | [place], | Phone: | | | | | Complete | [place] | [phone] | | | | | | [address] | Fax: | | | | | | Phone: | [phone] | | | | | | [phone] | | | | | | | Fax: | | | | | | | [phone] | | +--------+--------+ + + + + Encounter Details +--------+ + + + + | Date | Type | Department | Care Team | Description | +--------+ + + + + | 11/16/ | Hospital | [facility] | Silvia, | Aneurysmal | | 2017 | Encounter | MED CTR ECHO [address] | Janeen, ASSEMBLER FAUCETS [address] | dilatation (HCC) | | | | [place] | [place], | | | | | [place], [place] [address] | [place] [address] | | | | | [phone] | [phone] | | | | | | | [...] + + + +---------+ + + | Lakewood-3 Fatty | CAPS, one capsule by | [...] | | | | | | [place] [address] | | | | | | [phone] | | | | | | | | +--------+ + + + + | 05/01/ | Procedure | Cardiology | | | | 2019 | visit | | | | +--------+ + + + + | 05/01/ | Office | Cardiology | Silvia, | | | 2019 | Visit | | PARISA Solis W | | | | | | [place], | | | | | | [place] [address] | | | | | | [phone] | | | | | | | | +--------+ + + + + | 05/21/ | Implant | Cardiology | Sydni Singletary, | Remote Device | | 2019 | Monitor | | MD Sim [place] | Interrogation | | | | | [place], | (Primary Dx); | | | | | [place] [address] | Pacemaker; | | | | | [phone] | Sinoatrial node | | | | [...] Room Number SARAH Patient | | | [id number] Date of Study 11/16/2017 Number | | | Visit Number [id number] | | | Referring Physician GURJIT TROY Number | | | NOMRA SOLIS Date | | | of 1960 Career Services Assistant ROMAINE | | | MARISSA TIPTON Age 57 year(s) Interpreting | | | GURJIT TROY | | | Local Announcer SYDNI SINGLETARY, | | | | | | Gender Male Nurse | | | Stress Risk Control Officer Procedure Type of | | | Study [...] | | | EF | | | Wxgekjhkx62% Left Ventricle Diastolic Dimension: 5.12 cm | [...] Volume: 46.33 ml | | | EF Nbpsskxvu33% | | | | | | Left [...] Procedure Note | + + | Kalpesh rBown Results In - 11/16/2017 1:48 PM PST Transthoracic Echocardiography Report | | (TTE) Demographics Patient Name VICTOR HUGO BARRY Room Number SARAH | | Patient [id number] Date of Study 11/16/2017 Number Visit Number | | [id number] Referring Physician GURJIT TROY | | Number RHANGELIA SOLIS Date of | | 1960 Career Services Assistant ROMAINE TIPTON PARESH Age 57 year(s) | | Interpreting GURJIT TROY Local Announcer | | SYDNI SINGLETARY MD | | [...] [place] Volume: 46.33 ml | | EF Enfxgtnwz69% Left Ventricle Diastolic Dimension: 5.12 cm Systolic [...] [place] Volume: 46.33 ml | | EF Qrdmcnvyl06% | | | | Left Ventricle | [...]
--- OUTSIDE RECORDS SUMMARY | ~2020-04-13 | XMS | Encounter Summary ---
Demographics + + + | Address | [address] | | | [place] [address] | + + + | Home Phone [...] Providers + +------+ + | Care Oracle Drm Consultant Name | Role | Phone | [...] + | 07/12/ | Office | [facility] | Michael Amanda, | Preventative health | | 2013 | Visit | [facility] | DO [address] | care (Primary Dx); | | | | [address] | [place], [place] | Prostate cancer | | | | [place], [place] | [address] | screening; | | | | [address] | | Hypercholesterolemia | | | | [phone] | | ; Hypertension; | | | [...] clear cause was found. He has seen plaster die maker and has a rechec k plan. Possible [...] | | | | | | [place] [address] | | | | | | [phone] | | | | | | | [...] | | | | | | [place] [address] | | | | | | [phone] | | | | | | | | +--------+ + + + + | 05/21/ | Implant | Cardiology | Daljit Singletary, | Remote Device | 2019 | Monitor | | [address] | Interrogation | | | | | [place], | (Primary Dx); | | | | | [place] [address] | Pacemaker; | | | | | [phone] | Sinoatrial node | | | | [...]
--- OUTSIDE RECORDS SUMMARY | ~2020-04-13 | XMS | Encounter Summary ---
Demographics + + + | Address | [address] | | | [place] [address] | + + + | Home Phone [...] Providers + +------+ + | Care Records Supervisor Name | Role | Phone | [...] + + | 06/26/ | Office | [facility] | Geri Angel, | Coronary artery | | 2015 | Visit | CARDIOLOGY [address] | PHYSICAL EDUCATION DEPARTMENT CHAIR [address] | disease involving | | | | [address] [address] [place], | [facility] [place] [facility] | round [place] coronary | | | | [place] [address] | [address] | artery without | | | | [phone] | | angina pectoris | | | [...] Service: 06/26/15 HISTORY OF PRESENT ILLNESS: Moe Sanchze is a 55 y.o. male with a [...] not occur with exertion. He went to [facility] at the end of for [...] it. He is planning to travel to [facility] in the ve ry near future for up to a month due to his lxwvfb-nr-vkd having a significant stroke there MEDICAL, SURGICAL, [...] Preventative health care Coronary artery disease involving [place] coronary artery without angina pectoris Cannabis abuse, [...] by mouth Daily. 30 tabl et 6 [facility], [place] Natural [...] 3rd dose, call 911 25 tablet 11 Greenleaf-3 Fatty Acids (SALMON OIL-1000 PO) CAPS, one capsule by mouth daily twice daily ONE TOUCH DELICA LANCETS [facility] Check glucose as needed for hypoglycemia 100 [...] Daily. 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 Leads: Right atrium and right ventricle (dual [...] to go back in 3 days to [place] for an attempt of ablation under general [...] this chart may have been created with Seven[employer] voice recognition software. Occasi onal wrong-word or [...] W | | | | | | [place], | | | | | | [place] [address] | | | | | | [phone] | | | | | | | | +--------+ + + + + | 05/01/ | Procedure | Cardiology | | | | 2019 | visit | | | | +--------+ + + + + | 05/01/ | Office | Cardiology | Silvia, | | | 2019 | Visit | | PARISA Vernon W | | | | | | [place], | | | | | | [place] [address] | | | | | | [phone] | | | | | | | | +--------+ + + + + | 05/21/ | Implant | Cardiology | Daljit Singletary, | Remote Device | | 2020 | Monitor | | [address] [facility] | Interrogation | | | | | 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 Leads: Right atrium and right | | [...] + + | Coronary artery disease involving [place] coronary artery without angina pectoris - | | Primary | + + | SINUS BRADYCARDIA Sinoatrial node dysfunction | + + | Essential hypertension Unspecified essential hypertension | + + | Hyperlipidemia Other and unspecified hyperlipidemia | + + | Symptomatic PVCs Other premature beats | + + documented in this encounter
--- OUTSIDE RECORDS SUMMARY | ~2020-04-13 | XMS | Encounter Summary ---
Demographics + + + | Address | [address] | | | [place] [address] | + + + | Home Phone [...] Providers + +------+ + | Care Plastics Plater Name | Role | Phone | [...] Provider Unknown | | | | | [place], [place] | [phone] | | | | | [address] | | | | | | [phone] | | | +--------+ + + + [...] | | | | | | | #[id number], exp 07/2016 | | | | | [...] | | | | | | [place] [address] | | | | | | [phone] | | | | | | | | +--------+ + + + + | 05/01/ | Procedure | Cardiology | | | | 2019 | visit | | | | +--------+ + + + + | 05/01/ | Office | Cardiology | Silvia, | | | 2019 | Visit | | PARISA Vernon [address] | | | | | | [place], | | | | | | [place] [address] | | | | | | [phone] | | | | | | | | +--------+ + + + + | 05/21/ | Implant | Cardiology | Daljit Singletary, | Remote Device | | 2020 | Monitor | | [address] [place] | Interrogation | | | | | [place], | (Primary Dx); | | | | | [place] [address] | Pacemaker; | | | | | [phone] | Sinoatrial node | | | | [...]
--- OUTSIDE RECORDS SUMMARY | ~2020-04-13 | XMS | Encounter Summary ---
Demographics + + + | Address | [address] [place] [address] [address] | | | [place] [address] | + + + | Home Phone [...] [place] | | | | | [address] | | + + + + + Care Team Providers + +------+ + | Care Millinery Designer Name | Role | Phone | [...] | | | [address] | [place], [place] | | | | | Mailcode: Center | [address] | | | | | for Health and | [phone] | | | | | [facility] [address] | | | | | | [place], [place] | | | | | | [address] | | | | | | [phone] | | | +--------+ + + + [...]
--- OUTSIDE RECORDS SUMMARY | ~2020-04-13 | XMS | Encounter Summary ---
Demographics + + + | Address | [address] | | | [place] [address] | + + + | Home Phone [...] Providers + +------+ + | Care Roll Hand Name | Role | Phone | [...] [place] | | | | | [address] [place], [place] | [place] [address] | | | | | [address] | [phone] | | | | | [phone] | | | +--------+ + + + [...] | | | | | | [place] [address] | | | | | | [phone] | | | | | | | | +--------+ + + + + | 05/01/ | Procedure | Cardiology | | | | 2019 | visit | | | | +--------+ + + + + | 05/01/ | Office | Cardiology | Silvia, | | | 2019 | Visit | | PARISA Vernon W | | | | | | [place], | | | | | | [place] [address] | | | | | | [phone] | | | | | | | | +--------+ + + + + | 05/21/ | Implant | Cardiology | Daljit Singletary, | Remote Device | 2019 | Monitor | | [facility] | Interrogation | | | | | [place], | (Primary Dx); | | | | | [place] [address] | Pacemaker; | | | | | [phone] | Sinoatrial node | | | | | | dysfunction (HCC) | | | | | | with symptomatic | | | | | | bradycardia | +--------+ + + + + documented as of this encounter Visit Diagnoses Not on filedocumented in this encounter"
--- OUTSIDE RECORDS SUMMARY | ~2020-04-13 | XMS | Encounter Summary ---
Demographics + + + | Address | [address] | | | [place] [address] | + + + | Home Phone [...] Providers + +------+ + | Care Network Associate Name | Role | Phone | [...] Provider Unknown | | | | | [place], [place] | [phone] | | | | | [address] | | | | | | [phone] | | | +--------+ + + + [...] + + + +---------+ + + | Harvest-3 Fatty | CAPS, one capsule by | [...] | | | | | | | #[id number], exp 07/2016 | | | | | [...] | | | | | | [place] [address] | | | | | | [phone] | | | | | | | | +--------+ + + + + | 05/01/ | Procedure | Cardiology | | | | 2019 | visit | | | | +--------+ + + + + | 05/01/ | Office | Cardiology | Silvia, | | | 2019 | Visit | | PARISA Vernon [address] | | | | | | [place], | | | | | | [place] [address] | | | | | | [phone] | | | | | | | | +--------+ + + + + | 05/21/ | Implant | Cardiology | Daljit Singletary, | Remote Device | | 2020 | Monitor | | [address] [place] [place] | Interrogation | | | | | [place], | (Primary Dx); | | | | | [place] [address] | Pacemaker; | | | | | [phone] | Sinoatrial node | | | | [...]
--- OUTSIDE RECORDS SUMMARY | ~2020-04-13 | XMS | Encounter Summary ---
Demographics + + + | Address | [address] | | | [place] [address] | + + + | Home Phone [...] | SLEEP DISORDER [address] | [address] | Dx) | | | | [address] [place] | [place] | | | | | [place] [address] | [address] | | | | | [phone] | | | +--------+---------+ + + + [...] pillows obtained from: [facility] [place] pressure is: 13 cm CPAP download shows [...] to go to [facility] [place] to have them download his memory card. I will readjust his pressure, if necessary. I will call him with the results. He is to work toward wearing his CPAP 100% of the time he is asleep. I will follow up again in 1 month, sooner prn. Fifteen minutes were spent uvpj-vn-erwa, wi th the majority of time spent [...] W | | | | | | [place], | | | | | | [place] [address] | | | | | | [phone] | | | | | | | | +--------+ + + + + | 05/01/ | Procedure | Cardiology | | | | 2019 | visit | | | | +--------+ + + + + | 05/01/ | Office | Cardiology | Silvia, | | | 2019 | Visit | | PARISA Vernon W | | | | | | [place], | | | | | | [place] [address] | | | | | | [phone] | | | | | | | | +--------+ + + + + | 05/21/ | Implant | Cardiology | SunshinecherelleDaljit, | Remote Device | | 2019 | Monitor | | [address] [facility] | Interrogation | | | | | [place], | (Primary Dx); | | | | | [place] [address] | Pacemaker; | | | | | [phone] | Sinoatrial node | | | | [...]
--- OUTSIDE RECORDS SUMMARY | ~2020-04-13 | XMS | Encounter Summary ---
Demographics + + + | Address | [address] | | | [place] [address] | + + + | Home Phone [...] Providers + +------+ + | Care Last Code Striper Name | Role | Phone | + +------+ + PCP | Unavailable | + +------+ + Encounter Details +--------+ + + + + | Date | Type | Department | Care Team | Description | +--------+ + + + + | 01/14/ | Hospital | [facility] | Deburi, | BACKACHE NOS | | 2004 | Encounter | [facility] | MD Tai [address] | | | | | CLINICAL DECISION | [place] | | | | | [address] | [place] [address] | | | | | [place], [place] | [phone] | | | | | [address] | | | | | | [phone] | | | +--------+ + + + [...] | | | | | | [place], | | | | | | [place] [address] | | | | | | [phone] | | | | | | | | +--------+ + + + + | 05/01/ | Procedure | Cardiology | | | | 2019 | visit | | | | +--------+ + + + + | 05/01/ | Office | Cardiology | Silvia, | | | 2019 | Visit | | PARISA Vernon W | | | | | | [place], | | | | | | [place] [address] | | | | | | [phone] | | | | | | | | +--------+ + + + + | 05/21/ | Implant | Cardiology | Daljit Singletary, | Remote Device | | 2019 | Monitor | | MD Sim [place] | Interrogation | | | | | [place], | (Primary Dx); | | | | | [place] [address] | Pacemaker; | | | | | [phone] | Sinoatrial node | | | | | | dysfunction (HCC) | | | | | | with symptomatic | | | | | | bradycardia | +--------+ + + + + documented as of this encounter Visit Diagnoses + + | Diagnosis | + + | Backache, unspecified | + + documented in this encounter"
--- OUTSIDE RECORDS SUMMARY | ~2020-04-13 | XMS | Encounter Summary ---
Demographics + + + | Address | [address] | | | [place] [address] | + + + | Home Phone [...] + +------+ + | Care Patient Care Representative Name | Role | Phone | [...] + | 12/23/ | Telephone | [facility] | Silvia, | Lab Order (due for | | 2017 | | CARDIOLOGY [address] | Janeen, RN LABOR DELIVERY [address] | fasting labs) | | | | [place], | [place], | | | | | [place] [address] | [place] [address] | | | | | [phone] | [phone] | | | | | | | [...] | | | | | | [place] [address] | | | | | | [phone] | | | | | | | | +--------+ + + + + | 05/01/ | Procedure | Cardiology | | | | 2019 | visit | | | | +--------+ + + + + | 05/01/ | Office | Cardiology | Silvia, | | | 2019 | Visit | | PARISA Vernon [address] | | | | | | [place], | | | | | | [place] [address] | | | | | | [phone] | | | | | | | | +--------+ + + + + | 05/21/ | Implant | Cardiology | Daljit Singletary, | Remote Device | | 2019 | Monitor | | [facility] | Interrogation | | | | | [place], | (Primary Dx); | | | | | [place] [address] | Pacemaker; | | | | | [phone] | Sinoatrial node | | | | | | dysfunction (HCC) | | | | | | with symptomatic | | | | | | bradycardia | +--------+ + + + + documented as of this encounter Visit Diagnoses Not on filedocumented in this encounter"
--- OUTSIDE RECORDS SUMMARY | ~2020-04-13 | XMS | Encounter Summary ---
Demographics + + + | Address | [address] | | | [place] [address] | + + + | Home Phone [...] Team Providers + +------+ + | Care Airplane Mechanic Apprentice Name | Role | Phone [...] + + | 02/01/ | Telephone | [facility] | Silvia, | Other (unable to | | 2013 | | CARDIOLOGY [address] | PARISA Vernon [address] | take the isosorbide) | | | | [place], | [place], | | | | | [place] [address] | [place] [address] | | | | | [phone] | [phone] | | | | | | | [...] W | | | | | | [place], | | | | | | [place] [address] | | | | | | [phone] | | | | | | | | +--------+ + + + + | 05/01/ | Procedure | Cardiology | | | | 2019 | visit | | | | +--------+ + + + + | 05/01/ | Office | Cardiology | Silvia, | | | 2019 | Visit | | PARISA Vernon W | | | | | | [place], | | | | | | [place] [address] | | | | | | [phone] | | | | | | | | +--------+ + + + + | 05/21/ | Implant | Cardiology | Daljit Singletary, | Remote Device | | 2020 | Monitor | | [place] [facility] | Interrogation | | | | | [place], | (Primary Dx); | | | | | [place] [address] | Pacemaker; | | | | | [phone] | Sinoatrial node | | | | | | dysfunction (HCC) | | | | | | with symptomatic | | | | | | bradycardia | +--------+ + + + + documented as of this encounter Visit Diagnoses + + | Diagnosis | + + | Coronary artery disease - Primary Coronary atherosclerosis of unspecified type of | | vessel, sokaogon or graft | + + | Hypertension Unspecified essential hypertension | + + | Hyperlipidemia Other and unspecified hyperlipidemia | + + documented in this encounter"
--- OUTSIDE RECORDS SUMMARY | ~2020-04-13 | XMS | Encounter Summary ---
Demographics + + + | Address | [address] | | | [place] [address] | + + + | Home Phone [...] Providers + +------+ + | Care Mobile Ui Designer Name | Role | Phone | + +------+ + PCP | Unavailable | + +------+ + Encounter Details +--------+ + + + + | Date | Type | Department | Care Team | Description | +--------+ + + + + | 04/22/ | Hospital [facility] | | | | 2011 | Encounter | MED CTR XRAY [address] | | | | | | [place] | | | | | | [place] [address] | | | | | | [phone] | | | +--------+ + + + [...] + + + +---------+ + + | [place]-3 Fatty | CAPS, one capsule by [...] | | | | | | [place] [address] | | | | | | [phone] | | | | | | | | +--------+ + + + + | 05/01/ | Procedure | Cardiology | | | | 2019 | visit | | | | +--------+ + + + + | 05/01/ | Office | Cardiology | Silvia, | | | 2019 | Visit | | PARISA Vernon [address] | | | | | | [place], | | | | | | [place] [address] | | | | | | [phone] | | | | | | | | +--------+ + + + + | 05/21/ | Implant | Cardiology | Daljit Singletary, | Remote Device | | 2019 | Monitor | | MD [address] [place] | Interrogation | | | | | [place], | (Primary Dx); | | | | | [place] [address] | Pacemaker; | | | | | [phone] | Sinoatrial node | | | | [...] + + + | [facility] | [place] | | [address] [facility] | [facility] | | CT MYELOGRAM LUMBAR SPINE, [...] Transcribed Date/Time: | | | 04/23/2012 11:06 Technical Support 1 Software Engineer: <Electronically Signed | | | by Jama Solis MD> 04/24/12 0730 | | + + + + + | Procedure Note | + + | Kevin, Rad Conversion - 12/29/2013 5:27 PM [facility] | | Diagnostic Imaging Department [address] [place] [address] | | CT MYELOGRAM LUMBAR SPINE, 04/22/2012 [...] 10:54 | |Transcribed Date/Time: 04/23/2012 11:06 | |Technical Support 1 Software Engineer: | |<Electronically Signed by Jama Solis MD> 04/24/12 0730 | + + + +---------+ + + | Performing | Address | City/State/Zipcode | Phone Number | | Organization | | | | + +---------+ + + | [facility] | | | | | [facility] | | | | + +---------+ + + CT Thoracic Spine w Contrast (04/22/2012 1:12 PM PDT) + + | Specimen | + + | | + + + + + | Narrative | Performed At | + + + | [facility] Diagnostic Imaging [facility] | [facility] | | [address] [facility] | [facility] | | THORACIC CT MYELOGRAM | [...] Transcribed Date/Time: 04/22/2012 17:32 | | | Technical Support 1 Software Engineer: <Electronically Signed by Jama Mason | | | MD Will> 04/23/12 1039 | | + + + + + | Procedure Note | + + | Kevin, Rad Conversion - 12/29/2013 5:27 PM [facility] | | Diagnostic Imaging Department [address] [facility] | | THORACIC CT MYELOGRAM [...] 16:56 | |Transcribed Date/Time: 04/22/2012 17:32 | |Technical Support 1 Software Engineer: | |<Electronically Signed by Jama Solis MD> 04/23/12 1039 | + + + +---------+ + + | Performing | Address | City/State/Zipcode | Phone Number | | Organization | | | | + +---------+ + + | [place] | | | | | [facility] | | | | + +---------+ + + CT Cervical Spine w Contrast (04/22/2012 1:12 PM PDT) + + | Specimen | + + | | + + + + + | Narrative | Performed At | + + + | [facility] Diagnostic [facility] | [facility] | | [address] [facility] | [facility] | | CT MYELOGRAM CERVICAL SPINE [...] Similar study from | | | 09/02/2009, [facility]. FINDINGS: Firm bony ankylosis | | | [...] Transcribed Date/Time: | | | 04/22/2012 17:25 Technical Support 1 Software Engineer: 1 <Electronically Signed | | | by Jama Solis MD> 04/23/12 1039 | | + + + + + | Procedure Note | + + | Kevin, Rad Conversion - 12/29/2013 5:27 PM [facility] | | Diagnostic Imaging Department | | [address] [facility] | | | | | | [...] | | COMPARISON: Similar study from 09/02/2009, [facility]. | | | | FINDINGS: Firm bony [...] | Transcribed Date/Time: 04/22/2012 17:25 | | Technical Support 1 Software Engineer: | | <Electronically Signed by Jama Solis [...] + + + | [facility] Diagnostic Imaging [facility] | [place] | | [address] [place] | [place] | | LUMBAR [...] Transcribed Date/Time: 04/22/2012 16:36 | | | Technical Support 1 Software Engineer: DEBRA <Electronically Signed by Jama Mason | | | MD Will> 04/23/12 1039 | | + + + + + | Procedure Note | + + | Kevin, Rad Conversion - 12/29/2013 5:27 PM [facility] | | Diagnostic Imaging Department [address] [place] [address] | | LUMBAR MYELOGRAM INJECTION FOR CT [...] 15:51 | |Transcribed Date/Time: 04/22/2012 16:36 | |Technical Support 1 Software Engineer: | |<Electronically Signed by Jama Solis MD> [...]
--- OUTSIDE RECORDS SUMMARY | ~2020-04-13 | XMS | Encounter Summary ---
Demographics + + + | Address | [address] | | | [place] [address] | + + + | Home Phone [...] Team Providers + +------+ + | Care Lithographic Plate Maker Name | Role | Phone [...] [place] | | | | | | [address] | | | | | | [phone] | | | | | | | [...] | | | | | | [place] [address] | | | | | | [phone] | | | | | | | | +--------+ + + + + | 05/01/ | Procedure | Cardiology | | | | 2019 | visit | | | | +--------+ + + + + | 05/01/ | Office | Cardiology | Silvia, | | | 2019 | Visit | | PARISA Vernon [address] | | | | | | [place], | | | | | | [place] [address] | | | | | | [phone] | | | | | | | | +--------+ + + + + | 05/21/ | Implant | Cardiology | Daljit Singletary, | Remote Device | | 2019 | Monitor | | MD [place] | Interrogation | | | | | [place], | (Primary Dx); | | | | | [place] [address] | Pacemaker; | | | | | [phone] | Sinoatrial node | | | | | | dysfunction (HCC) | | | | | | with symptomatic | | | | | | bradycardia | +--------+ + + + + documented as of this encounter Visit Diagnoses Not on filedocumented in this encounter"
--- OUTSIDE RECORDS SUMMARY | ~2020-04-13 | XMS | Encounter Summary ---
Demographics + + + | Address | [address] | | | [place] [address] | + + + | Home Phone [...] Team Providers + +------+ + | Care Teletypewriter Installer Name | Role | Phone | [...] + + | 09/01/ | [facility] | [facility] | [place], | Ascending thoracic | | 2015 | Visit | CARDIOLOGY [address] | PARISA [place] [address] | aortic aneurysm | | | | [place], | [place], | ([facility]) (Primary Dx); | | | | [place] [address] | [place] [address] | Coronary artery | | | | [phone] | [phone] | disease involving | | | | | | [place] coronary | | | | | | artery of [place] | | | | | | heart [...] of non-critical coronary artery d isease involving [place] coronary artery of [place] heart without angina pectoris, essential h ypertension, [...] episode of chest pain while nelly ng [facility], so he took some sublingual nitroglycerin and [...] Coronary artery disease involving [place] coronary artery of [place] heart without angina pectoris Cannabis abuse, daily [...] mouth every evening 90 tablet 3 [facility] (OSTEO BI-FLEX/5-LOXIN ADVANCED PO) Take [...] 3rd dose, call 911 100 tablet 3 [place]-3 Fatty Acids (SALMON OIL-1000 PO) CAPS, one [...] reviewed during visit today primarily from [facility]: LIPID Lab Results Component Value Date TRIG [...] PLTEX 129* 05/12/2016 I reviewed records from [facility] for office visit on 06/2016 [facility] ch is summarized in the HPI. [...] He is in class II of the [place] Heart Ass ociation functional class. On physical examination there are no signs of fluid overload. The plan will be to lose weight, modify portion control, start exercising, limit sodium in take and we will start losartan 25 mg once a day with a close monitoring of blood pressure. 2. Non-critical Coronary artery disease involving [place] coronary artery of [place] heart [facility] angina pectoris: A. Normal exercise sestamibi [...] arrhythmia performed by Dr. Gambino at [facility] on 01/30/2013. Patient had spontaneous PVCs [...] to go back in 3 days to [place] for an attempt of ablation under general [...] this chart may have been created with [employer] voice recognition software. Occasi onal wrong-word or [...] | | | | | | [place] [address] | | | | | | [phone] | | | | | | | | +--------+ + + + + | 05/01/ | Procedure | Cardiology | | | 2019 | visit | | | | +--------+ + + + + | 05/01/ | Office | Cardiology | Silvia, | | | 2019 | Visit | | PARISA Vernon [address] | | | | | | [place], | | | | | | [place] [address] | | | | | | [phone] | | | | | | | | +--------+ + + + + | 05/21/ | Implant | Cardiology | Daljit Singletary, | Remote Device | | 2019 | Monitor | | [address] [place] | Interrogation | | | | | [place], | (Primary Dx); | | | | | [place] [address] | Pacemaker; | | | | | [phone] | Sinoatrial node | | | | | | dysfunction ([facility]) | | | | | | [...] Coronary artery disease involving [place] coronary artery of [place] heart without | | angina pectoris | + + | Essential hypertension with goal blood pressure less than 130/80 | + + | Hyperlipidemia, mixed Mixed hyperlipidemia | + + documented in this encounter
--- OUTSIDE RECORDS SUMMARY | ~2020-04-13 | XMS | Encounter Summary ---
Demographics + + + | Address | [address] | | | [place] [address] | + + + | Home Phone [...] Providers + +------+ + | Care Medical Information Officer Name | Role | Phone | [...] + | 02/21/ | Office | [facility] | Silvia, | Coronary artery | | 2019 | Visit | CARDIOLOGY [address] | PAR[place] [address] | disease involving | | | | [place], | [place], | [place] coronary | | | | [place] [address] | [place] [address] | artery of [place] | | | | [phone] | [phone] | heart without angina | | | [...] of non-critical coronary artery d isease involving [place] coronary artery of [place] heart without angina pectoris, essential h [...] stay active. He enjoys hunting in his [place] community heal[place]. He has not had any [...] Preventative health care Coronary artery disease involving [place] coronary artery of [place] heart without angina pectoris Cannabis abuse, [...] 3RD DOSE, CALL 911 100 tablet 3 [place]-3 Fatty Acids (SALMON OIL-1000 PO) CAPS, one [...] was found Confirmed by ANGELA MARADIAGA MD ([id number]) on 01/03/2019 8:10:39 PM LAB RESULTS reviewed during visit today primarily from [facility]: LIPID Lab Results Component Value [...] BNP 15 01/02/2019 I reviewed records from [facility] for angiogram results on 019 which is summarized in the HPI. RESULTS- I reviewed reports from [facility]: No results found. Left heart catheterization done [...] ASSESSMENT: 1. Non-critical Coronary artery disease involving [place] coronary artery of [place] heart [facility] angina pectoris: A.Normal exercise [...] heart catheterization done on 01/25/18 shows noncritical tc nary artery disease; borderline 50% eccentric lesions [...] Symptoms with moderate exertion of t he [place] Heart Association functional class. Heart failure [...] [facility] on 01/30/2013.Patient had spontaneous PVC's fro [...] a greater than 30 minute waiting period.A "chair" of ablation lesion was performed and the [...] [facility] thought to have [facility]ov[facility]al [facility]. B. [...] this chart may have been created with [employer] voice recognition software. Occasi onal wrong-word or [...] W | | | | | | [place], | | | | | | [place] [address] | | | | | | [phone] | | | | | | | | +--------+ + + + + | 05/01/ | Procedure | Cardiology | | | | 2019 | visit | | | | +--------+ + + + + | 05/01/ | Office | Cardiology | Silvia, | | | 2019 | Visit | | PARISA Vernon [address] | | | | | | [place], | | | | | | [place] [address] | | | | | | [phone] | | | | | | | | +--------+ + + + + | 05/21/ | Implant | Cardiology | Daljit Singletary, | Remote Device | | 2019 | Monitor | | [address] [facility] | Interrogation | | | | | [place], | (Primary Dx); | | | | | [place] [address] | Pacemaker; | | | | | [phone] | Sinoatrial node | | | | | | dysfunction (HCC) | | | | | | with symptomatic | | | | | | bradycardia | +--------+ + + + + documented as of this encounter Visit Diagnoses + + | Diagnosis | + + | Coronary artery disease involving [place] coronary artery of [place] heart without | | angina pectoris - Primary | + + | Symptomatic PVCs Other premature beats | + + | Essential hypertension Unspecified essential hypertension | + + documented in this encounter
--- OUTSIDE RECORDS SUMMARY | ~2020-04-13 | XMS | Encounter Summary ---
Demographics + + + | Address | [address] | | | [place] [address] | + + + | Home Phone [...] Team Providers + +------+ + | Care Sanitarian Name | Role | Phone | + [...] Provider Unknown | | | | | [place], [place] | [phone] | | | | | [address] | | | | | | [phone] | | | +--------+ + + + [...] + + + +---------+ + + | [place]-3 Fatty | CAPS, one capsule by | [...] | | | | | | | #[id number], exp 07/2016 | | | | | [...] | | | | | | [place] [address] | | | | | | [phone] | | | | | | | | +--------+ + + + + | 05/01/ | Procedure | Cardiology | | | | 2019 | visit | | | | +--------+ + + + + | 05/01/ | Office | Cardiology | Silvia, | | | 2019 | Visit | | PARISA Vernon [address] | | | | | | [place], | | | | | | [place] [address] | | | | | | [phone] | | | | | | | | +--------+ + + + + | 05/21/ | Implant | Cardiology | Daljit Singletary, | Remote Device | | 2020 | Monitor | | [address] [place] | Interrogation | | | | | [place], | (Primary Dx); | | | | | [place] [address] | Pacemaker; | | | | | [phone] | Sinoatrial node | | | | [...]
--- OUTSIDE RECORDS SUMMARY | ~2020-04-13 | XMS | Encounter Summary ---
Demographics + + + | Address | [address] | | | [place] [address] | + + + | Home Phone [...] Providers + +------+ + | Care Principal Ios Developer Name | Role | Phone | [...] | | | CENTER [address] | [address] | (Primary Dx) | | | | [place], [place] | [place], [place] | | | | | [address] | [address] | | | | | [phone] | | | +--------+ + + + [...] + + + +---------+ + + | [place]-3 Fatty | CAPS, one capsule by | [...] | | | | | | [place] [address] | | | | | | [phone] | | | | | | | | +--------+ + + + + | 05/01/ | Procedure | Cardiology | | | | 2019 | visit | | | | +--------+ + + + + | 05/01/ | Office | Cardiology | Silvia, | | | 2019 | Visit | | PARISA Vernon W | | | | | | [place], | | | | | | [place] [address] | | | | | | [phone] | | | | | | | | +--------+ + + + + | 05/21/ | Implant | Cardiology | Sydni Singletary, | Remote Device | 2019 | Monitor | | [address] [facility] | Interrogation | | | | | [place], | (Primary Dx); | | | | | [place] [address] | Pacemaker; | | | | | [phone] | Sinoatrial node | | | | [...] W?MRN: | | | | | | [id number] | | | [id number] | | | his | | | [...] | | | ent/60 | | | [id number] | | | -[id number] | | | [...] | | | St. | | | [place] | | | y | | | [...] | | | ext. | | | [id number] | | | or go | | [...] | | | M.D. | | | Conservation Scientist | | | al | | | [...] + | [facility] | [address] | [place] | [phone] | | [facility] | | [address] | | | - LABORATORY | | [...] | [facility] | [address] | [place] | [phone] | | [facility] | | [address] | | | - LABORATORY | | [...] | + + + + + | [facility] | [address] | [place] | [phone] | | [facility] | | [address] | | | - LABORATORY | | [...] 16 | 7 - 18 mg/dL | [facility] | | | | | | [facility] | | | | | | MEDICAL | | | | | | CENTER - | | | | | | LABORATORY | | + + + + + + | Creatinine | 0.82 | 0.60 - 1.30 | [facility] | | | | | mg/dL | [facility] | | | | | | MEDICAL | | | | | | CENTER - | | | | | | LABORATORY | | + + + + + + | eGFR if not | >60Comment: GLOMERULAR | >=60 | [facility] | | | | FILTRATION | mL/min/1.73m2 | [facility] | | | [facility] | RATE,ESTIMATED | | MEDICAL | | | | mL/min/1.71a6Cadi than | | CENTER - | | [...] [address] | [place] | [phone] | | [facility] | | [address] | | | - LABORATORY | | [...] | Basophils | | K/uL | [facility] | | | | [...] [address] | [place] | [phone] | | [facility] | | [address] | | | - LABORATORY | | [...] [address] | [place] | [phone] | | [facility] | | [address] | | | - LABORATORY | | [...] SYDNI | | | | | | ([id number]) on 06/22/2018 | | | | | [...]
--- OUTSIDE RECORDS SUMMARY | ~2020-04-13 | XMS | Encounter Summary ---
Demographics + + + | Address | [address] [place] [address] [address] | | | [place] [address] | + + + | Home Phone [...] + + + | Author | [facility] | + + + | Organization | [facility] | + + + | Address | Unknown | + + + | Phone | Unavailable | + + + Support + + + + + | Name | Relationship | Address | Phone | + + + + + | Rachel Valencia | [address] | [place] | | | | | [address] | | + + + + + Care Team Providers + +------+ + | Care Shredder Operator Name | Role | Phone | [...] 2 | | | | | | [place], [place] | [place], [place] | | | | | | [address] | [address] | | | | | | Phone: | Phone: | | | | | | [phone] | [phone] | | | | | | Fax: | Fax: | | | | | | [phone] | [phone] | +--------+--------+ + + + + Encounter Details +--------+---------+ + + + | Date | Type | Department | Care Team | Description | +--------+---------+ + + + | 09/28/ | Office | Digestive Health | Bridgette Rios, | Chronic diarrhea | | 2019 | Visit | [facility] [address] | [address] | (Primary Dx); | | | | [address] | [place], [place] | Abdominal cramping; | | | | Mailcode: [place] | [address] | Unintentional weight | | | | for Health and | [phone] | loss | | | | [facility] | | | | | | [place], [place] | | | | | | [address] | | | | | | [phone] | | | +--------+---------+ + + + [...] lab orders to [place] 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 [facility] ~ Initial Consultation / New [...] inflammatory bowel disease. CT scan done through [facility] November show ed mild diverticulosis [...] of Present Illness: Here with his from [place] for second opinion regarding severe abdominal cramps, isreal rrhea and weight loss following a GI illness contracted during a trip to [facility]. He reports that 2 years ago he was traveling in [facility] and he had some suspicious seafood. He develo ps profound bloody diarrhea with severe abdominal pain. He was hospitalized in [facility] and w as treated with [...] file Gets together: Not on file Attends christianity service: Not on file Active member of [...] Plan and Recommendations: 1. [facility] in [place] for stool studies as outlined above 2. If negative and symptoms persist, recommend capsule endoscopy (this could be completed b y local air traffic instructor or he could return to [place] for this test) 3. Nortryptiline 25mg q HS with instruction to titrate to 50mg q HS after 2 weeks if tolera kevin Follow-Up: with local air traffic instructor Counseling Time: I spent a total of 35 minutes with this patient, of which greater than 50 % of the time was spent in counseling. Specific issues that were discussed included a revie w of the disease, diagnostic tools that help in our management plans for the patient's chron ic diarrhea, abdominal cramping and weight loss and goals for treatment. Bridgette Rios MD Developmental Education Instructor Gastroenterology documented in this e ncounter Plan [...]
--- OUTSIDE RECORDS SUMMARY | ~2020-04-13 | XMS | Encounter Summary ---
Demographics + + + | Address | [address] | | | [place] [address] | + + + | Home Phone [...] Providers + +------+ + | Care Client Relation Specialist Name | Role | Phone | [...] Provider Unknown | | | | | [place], [place] | [phone] | | | | | [address] | | | | | | [phone] | | | +--------+ + + + [...] + + + +---------+ + + | [place]-3 Fatty | CAPS, one capsule by | [...] | | | | | | [place] [address] | | | | | | [phone] | | | | | | | | +--------+ + + + + | 05/01/ | Procedure | Cardiology | | | | 2019 | visit | | | | +--------+ + + + + | 05/01/ | Office | Cardiology | Silvia, | | | 2019 | Visit | | PARISA Vernon [address] | | | | | | [place], | | | | | | [place] [address] | | | | | | [phone] | | | | | | | | +--------+ + + + + | 05/21/ | Implant | Cardiology | Daljit Singletary, | Remote Device | | 2019 | Monitor | | [address] [facility] | Interrogation | | | | | [place], | (Primary Dx); | | | | | [place] [address] | Pacemaker; | | | | | [phone] | Sinoatrial node | | | | [...]
--- OUTSIDE RECORDS SUMMARY | ~2020-04-13 | XMS | Encounter Summary ---
Demographics + + + | Address | [address] | | | [place] [address] | + + + | Home Phone [...] + +------+ + | Care Medical Billing Coordinator Name | Role | Phone | [...] | [place] | [place] | | | | | [address] | [address] | | | | | [phone] | | | +--------+ + + + [...] | | | | | | [place] [address] | | | | | | [phone] | | | | | | | | +--------+ + + + + | 05/01/ | Procedure | Cardiology | | | | 2019 | visit | | | | +--------+ + + + + | 05/01/ | Office | Cardiology | Silvia, | | | 2019 | Visit | | PARISA Vernon [address] | | | | | | [place], | | | | | | [place] [address] | | | | | | [phone] | | | | | | | | +--------+ + + + + | 05/21/ | Implant | Cardiology | Daljit Singletary, | Remote Device | | 2019 | Monitor | | [address] [place] | Interrogation | | | | | [place], | (Primary Dx); | | | | | [place] [address] | Pacemaker; | | | | | [phone] | Sinoatrial node | | | | | | dysfunction ([facility]) | | | | | | with symptomatic | | | | | | bradycardia | +--------+ + + + + documented as of this encounter Visit Diagnoses Not on filedocumented in this encounter"
--- OUTSIDE RECORDS SUMMARY | ~2020-04-13 | XMS | Encounter Summary ---
Demographics + + + | Address | [address] | | | [place] [address] | + + + | Home Phone [...] Team Providers + +------+ + | Care Investigative Analyst Name | Role | Phone | + +------+ + | Kirk French MD | PCP | | + +------+ + Encounter Details +--------+ + + + + | Date | Type | Department | Care Team | Description | +--------+ + + + + | 01/25/ | Emergency | [facility] | Donald Callahan, | Strain of lumbar | | 2016 | | [facility]ENTER | Russ, DO [address] | paraspinal muscle, | | | | [facility]ENTER | [address] | initial encounter; | | | | [address] | [place], [place] | Left hip pain | | | | [place], [place] | [address] | | | | | [address] | | | | | | [phone] | | | +--------+ + + + [...] + + + +---------+ + + | Kobuk-3 Fatty | CAPS, one capsule by | [...] | | | | | | [place] [address] | | | | | | [phone] | | | | | | | | +--------+ + + + + | 05/01/ | Procedure | Cardiology | | | | 2019 | visit | | | | +--------+ + + + + | 05/01/ | Office | Cardiology | [place], | | | 2019 | Visit | | PARISA [place] [address] | | | | | | [place], | | | | | | [place] [address] | | | | | | [phone] | | | | | | | | +--------+ + + + + | 05/21/ | Implant | Cardiology | Daljit Singletary, | Remote Device | | 2019 | Monitor | | [address] | Interrogation | | | | | [place], | (Primary Dx); | | | | | [place] [address] | Pacemaker; | | | | | [phone] | Sinoatrial node | | | | [...] Conversion - 07/06/2019 12:12 AM PDT PINA [id number] years MaleXR | | LUMBAR SPINE LIMITED [...]
--- OUTSIDE RECORDS SUMMARY | ~2020-04-13 | XMS | Encounter Summary ---
Demographics + + + | Address | [address] | | | [place] [address] | + + + | Home Phone [...] Providers + +------+ + | Care Janitorial Account Manager Name | Role | Phone | + +------+ + PCP | Unavailable | + +------+ + Encounter Details +--------+ + + + + | Date | Type | Department | Care Team | Description | +--------+ + + + + | 10/13/ | Hospital | [facility] | | | | 2007 | Encounter | MED CTR EMERGENCY | | | | | | [place] [address] | | | | | | [place] | | | | | | [address] | | | | | | [phone] | | | +--------+ + + + [...] | | | | | | [place] [address] | | | | | | [phone] | | | | | | | [...] | | | | | | [place] [address] | | | | | | [phone] | | | | | | | | +--------+ + + + + | 05/21/ | Implant | Cardiology | Daljit Singletary, | Remote Device | 2019 | Monitor | | [address] | Interrogation | | | | | [place], | (Primary Dx); | | | | | [place] [address] | Pacemaker; | | | | | [phone] | Sinoatrial node | | | | | | dysfunction (HCC) | | | | | | with symptomatic | | | | | | bradycardia | +--------+ + + + + documented as of this encounter Visit Diagnoses Not on filedocumented in this encounter"
--- OUTSIDE RECORDS SUMMARY | ~2020-04-13 | XMS | Encounter Summary ---
Demographics + + + | Address | [address] [place] [address] [address] | | | [place] [address] | + + + | Home Phone [...] [place] | | | | | [address] | | + + + + + Care Team Providers + +------+ + | Care Port Purser Name | Role | Phone | + [...] | | | [address] | [facility] [place] | | | | | Mailcode: Martha | [address] | | | | | for Health and | [phone] | | | | | [facility] | | | | | | [place], [place] | | | | | | [address] | | | | | | [phone] | | | +--------+ + + + [...]
--- OUTSIDE RECORDS SUMMARY | ~2020-04-13 | XMS | Encounter Summary ---
Demographics + + + | Address | [address] | | | [place] [address] | + + + | Home Phone [...] Providers + +------+ + | Care Engine Lathe Operator Name | Role | Phone [...] | | CARDIOLOGY [address] | [address] | | | | | [place], | [place], | | | | | [place] [address] | [place] [address] | | | | | [phone] | [phone] | | | | | | | [...] W | | | | | | [place], | | | | | | [place] [address] | | | | | | [phone] | | | | | | | | +--------+ + + + + | 05/01/ | Procedure | Cardiology | | | | 2019 | visit | | | | +--------+ + + + + | 05/01/ | Office | Cardiology | Silvia, | | | 2019 | Visit | | PARISA [place] [address] | | | | | | [place], | | | | | | [place] [address] | | | | | | [phone] | | | | | | | | +--------+ + + + + | 05/21/ | Implant | Cardiology | Daljit Singletary, | Remote Device | | 2019 | Monitor | | [facility] | Interrogation | | | | | [place], | (Primary Dx); | | | | | [place] [address] | Pacemaker; | | | | | [phone] | Sinoatrial node | | | | | | dysfunction (HCC) | | | | | | with symptomatic | | | | | | bradycardia | +--------+ + + + + documented as of this encounter Visit Diagnoses Not on filedocumented in this encounter"
--- OUTSIDE RECORDS SUMMARY | ~2020-04-13 | XMS | Encounter Summary ---
Demographics + + + | Address | [address] | | | [place] [address] | + + + | Home Phone [...] Providers + +------+ + | Care Special Crimes Investigator Name | Role | Phone | [...] + | 02/01/ | Telephone | [facility] | [place]via, | Other (unable to | | 2013 | | CARDIOLOGY [address] | [place] [address] | take the isosorbide) | | | | [place], | [place], | | | | | [place] [address] | [place] [address] | | | | | [phone] | [phone] | | | | | | | [...] W | | | | | | [place], | | | | | | [place] [address] | | | | | | [phone] | | | | | | | | +--------+ + + + + | 05/01/ | Procedure | Cardiology | | | | 2019 | visit | | | | +--------+ + + + + | 05/01/ | Office | Cardiology | Silvia, | | | 2019 | Visit | | [place] W | | | | | | [place], | | | | | | [place] [address] | | | | | | [phone] | | | | | | | | +--------+ + + + + | 05/21/ | Implant | Cardiology | Daljit Singletary, | Remote Device | | 2020 | Monitor | | [place] [facility] | Interrogation | | | | | [place], | (Primary Dx); | | | | | [place] [address] | Pacemaker; | | | | | [phone] | Sinoatrial node | | | | [...]
--- OUTSIDE RECORDS SUMMARY | ~2020-04-13 | XMS | Encounter Summary ---
Demographics + + + | Address | [address] | | | [place] [address] | + + + | Home Phone [...] | Author | [facility] | | | and [...] Team Providers + +------+ + | Care Outer Diameter Technician Name | Role | Phone | + +------+ + PCP | Unavailable | + +------+ + Encounter Details +--------+ + + + + | Date | Type | Department | Care Team | Description | +--------+ + + + + | 02/21/ | [facility] | [facility] | Cristy Braun | | | 2008 | Encounter | MED CTR EMERGENCY | MD Ronald [address] | | | | | ANABEL [address] | [facility], | | | | | [place] | [place] [address] | | | | | [address] | [phone] | | | | | [phone] | | | +--------+ + + + [...] | | | | | | [place] [address] | | | | | | [phone] | | | | | | | [...] | | | | | | [place] [address] | | | | | | [phone] | | | | | | | | +--------+ + + + + | 05/21/ | Implant | Cardiology | Daljit Singletary, | Remote Device | 2019 | Monitor | | MD [address] [place] | Interrogation | | | | | [place], | (Primary Dx); | | | | | [place] [address] | Pacemaker; | | | | | [phone] | Sinoatrial node | | | | | | dysfunction (HCC) | | | | | | with symptomatic | | | | | | bradycardia | +--------+ + + + + documented as of this encounter Visit Diagnoses Not on filedocumented in this encounter"
--- OUTSIDE RECORDS SUMMARY | ~2020-04-13 | XMS | Encounter Summary ---
Demographics + + + | Address | [address] | | | [place] [address] | + + + | Home Phone [...] Providers + +------+ + | Care Senior Geotechnical Engineer Name | Role | Phone | [...] [address] | | | | | [place], | [place], | | | | | [place] [address] | [place] [address] | | | | | [phone] | [phone] | | | | | | | [...] W | | | | | | [place], | | | | | | [place] [address] | | | | | | [phone] | | | | | | | | +--------+ + + + + | 05/01/ | Procedure | Cardiology | | | | 2019 | visit | | | | +--------+ + + + + | 05/01/ | Office | Cardiology | Silvia, | | | 2019 | Visit | | [place] W | | | | | | [place], | | | | | | [place] [address] | | | | | | [phone] | | | | | | | | +--------+ + + + + | 05/21/ | Implant | Cardiology | Daljit Singletary, | Remote Device | | 2019 | Monitor | | [facility] | Interrogation | | | | | [place], | (Primary Dx); | | | | | [place] [address] | Pacemaker; | | | | | [phone] | Sinoatrial node | | | | | | dysfunction (HCC) | | | | | | with symptomatic | | | | | | bradycardia | +--------+ + + + + documented as of this encounter Visit Diagnoses Not on filedocumented in this encounter"
--- OUTSIDE RECORDS SUMMARY | ~2020-04-13 | XMS | Encounter Summary ---
Demographics + + + | Address | [address] | | | [place] [address] | + + + | Home Phone [...] Team Providers + +------+ + | Care Adz Worker Name | Role | Phone | [...] W | DISCLOSURE) | | | | [place], | [place], | | | | | [place] [address] | [place] [address] | | | | | [phone] | [phone] | | | | | | | [...] W | | | | | | [place], | | | | | | [place] [address] | | | | | | [phone] | | | | | | | | +--------+ + + + + | 05/01/ | Procedure | Cardiology | | | | 2019 | visit | | | | +--------+ + + + + | 05/01/ | Office | Cardiology | Silvia, | | | 2019 | Visit | | [place] W | | | | | | [place], | | | | | | [place] [address] | | | | | | [phone] | | | | | | | | +--------+ + + + + | 05/21/ | Implant | Cardiology | Daljit Singletary, | Remote Device | | 2019 | Monitor | | [address] [facility] | Interrogation | | | | | [place], | (Primary Dx); | | | | | [place] [address] | Pacemaker; | | | | | [phone] | Sinoatrial node | | | | | | dysfunction (HCC) | | | | | | with symptomatic | | | | | | bradycardia | +--------+ + + + + documented as of this encounter Visit Diagnoses Not on filedocumented in this encounter"
--- OUTSIDE RECORDS SUMMARY | ~2020-04-13 | XMS | Encounter Summary ---
Demographics + + + | Address | [address] | | | [place] [address] | + + + | Home Phone [...] Providers + +------+ + | Care International Sales Representative Name | Role | Phone [...] CARDIOLOGY [address] | MD [address] | Interrogation | | | | [place], | [place], | (Primary Dx); | | | | [place] [address] | [place] [address] | Pacemaker; | | | | [phone] | [phone] | Sinoatrial node | | | | [...] | | | | | | [place] [address] | | | | | | [phone] | | | | | | | | +--------+ + + + + | 05/01/ | Procedure | Cardiology | | | | 2019 | visit | | | | +--------+ + + + + | 05/01/ | Office | Cardiology | [place]via, | | | 2019 | Visit | | PARISA [place] W | | | | | | [place], | | | | | | [place] [address] | | | | | | [phone] | | | | | | | | +--------+ + + + + | 05/21/ | Implant | Cardiology | Daljit Singletary, | Remote Device | 2019 | Monitor | | MD Sim [facility] | Interrogation | | | | | [place], | (Primary Dx); | | | | | [place] [address] | Pacemaker; | | | | | [phone] | Sinoatrial node | | | | [...] remote PDF scanned into | | | [facility] for remote interrogation results. Data [...] + + | Performing | Address | City[facility] | Phone Number | | [...]
--- OUTSIDE RECORDS SUMMARY | ~2020-04-13 | XMS | Encounter Summary ---
Demographics + + + | Address | [address] | | | [place] [address] | + + + | Home Phone [...] Providers + +------+ + | Care Roller Coaster Operator Name | Role | Phone | + +------+ + PCP | Unavailable | + +------+ + Encounter Details +--------+ + + + + | Date | Type | Department | Care Team | Description | +--------+ + + + + | 02/21/ | [facility] | [facility] | Geri Angel, | | | 2011 | Encounter | MED CTR XRAY [address] | EDGE CUTTER [address] | | | | | [place] | [place] | | | | | [place] [address] | [address] | | | | | [phone] | | | +--------+ + + + [...] W | | | | | | [place], | | | | | | [place] [address] | | | | | | [phone] | | | | | | | | +--------+ + + + + | 05/01/ | Procedure | Cardiology | | | | 2019 | visit | | | | +--------+ + + + + | 05/01/ | Office | Cardiology | Silvia, | | | 2019 | Visit | | PARISA [place] W | | | | | | [place], | | | | | | [place] [address] | | | | | | [phone] | | | | | | | | +--------+ + + + + | 05/21/ | Implant | Cardiology | Daljit Singletary, | Remote Device | | 2019 | Monitor | | [address] [place] | Interrogation | | | | | [place], | (Primary Dx); | | | | | [place] [address] | Pacemaker; | | | | | [phone] | Sinoatrial node | | | | | | dysfunction (HCC) | | | | | | with symptomatic | | | | | | bradycardia | +--------+ + + + + documented as of this encounter Visit Diagnoses Not on filedocumented in this encounter"
--- OUTSIDE RECORDS SUMMARY | ~2020-04-13 | XMS | Encounter Summary ---
Demographics + + + | Address | [address] | | | [place] [address] | + + + | Home Phone [...] Team Providers + +------+ + | Care Mental Health Nurse Practitioner Name | Role | Phone [...] + + | 01/28/ | Refill | [facility] | Kirk French | Medication Refill | | 2019 | | [facility] | MD Bre[address] | | | | | [facility] | | | | | [address] | [place] [address] | | | | | [place], [place] | [phone] | | | | | [address] | | | | | | [phone] | | | +--------+--------+ + + + [...] | | | | | | [place] [address] | | | | | | [phone] | | | | | | | | +--------+ + + + + | 05/01/ | Procedure | Cardiology | | | | 2019 | visit | | | | +--------+ + + + + | 05/01/ | Office | Cardiology | [place]via, | | | 2019 | Visit | | PARISA Vernon [address] | | | | | | [place], | | | | | | [place] [address] | | | | | | [phone] | | | | | | | | +--------+ + + + + | 05/21/ | Implant | Cardiology | Daljit Singletary, | Remote Device | | 2019 | Monitor | | [address] [facility] | Interrogation | | | | | [place], | (Primary Dx); | | | | | [place] [address] | Pacemaker; | | | | | [phone] | Sinoatrial node | | | | | | dysfunction (HCC) | | | | | | with symptomatic | | | | | | bradycardia | +--------+ + + + + documented as of this encounter Visit Diagnoses Not on filedocumented in this encounter"
--- OUTSIDE RECORDS SUMMARY | ~2020-04-13 | XMS | Encounter Summary ---
Demographics + + + | Address | [address] | | | [place] [address] | + + + | Home Phone [...] Team Providers + +------+ + | Care Photocopying Equipment Mechanic Name | Role | Phone | [...] + | 03/07/ | Office | [facility] | [place], | SINUS BRADYCARDIA | | 2013 | Visit | CARDIOLOGY [address] | [place] [address] | (Primary Dx); | | | | [place], | [place], | Syncope; Symptomatic | | | | [place] [address] | [place] [address] | PVCs; Pacemaker - | | | | [phone] | [phone] | Medtronic - [id number] | | | [...] Sanchez Date: March 07, 2014 : 1960 Information Consultant: Kailey Pruitt RN Device Pyrometer Mechanic:Medtronic Sense (mV) Impedance (?) Capture (V) Capture (ms) A Lead >5.60 402 1.500 0.09 RV Lead >31.36 522 2.00 0.09 LV Lead Battery Impedance (?): 528 Battery Voltage (V): 2.79 [place] Interval (ms): 147 AR Interval (ms): 217 VA Conduction: Mode Switch Events: 0 % of time: 0 -PARK RANGER: <0.1% AP-PARK RANGER: 0.1% -VS: 23.8% AP-VS: 76.1% PARK RANGER: Magnetic Rate: 85 LINDA: 65 LEAH: Current [...] Pruitt RN 03/07/2014 12:00 Janeen Mccollum [place] [employer] - 03/07/2014 11:07 AM PDT PATIENT NAME: [...] headaches. He paulino d been seen at [facility] a couple times with [...] needed for Chest pain. 25 tablet 12 [place]-3 Fatty Acids (SALMON OIL-1000 PO) CAPS, one [...] Sanchez Date: March 07, 2014 : 1960 Information Consultant: Kailey Pruitt RN Device Pyrometer Mechanic:Book of Odds Sense (mV) Impedance (?) Capture (V) Capture (ms) A Lead >5.60 402 1.500 0.09 RV Lead >31.36 522 2.00 0.09 LV Lead Battery Impedance (?): 528 Battery Voltage (V): 2.79 [place] Interval (ms): 147 AR Interval (ms): 217 VA Conduction: Mode Switch Events: 0 % of time: 0 -PARK RANGER: <0.1% AP-PARK RANGER: 0.1% -VS: 23.8% AP-VS: 76.1% PARK RANGER: Magnetic Rate: 85 LINDA: 65 LEAH: Current [...] completely be ruled out. D. [facility] 12/25/13, shows noncritical coronary artery disease, mild [...] pain. He is in class II of [place] Heart Association functional class . There are [...] to go back in 3 days to [place] for an attempt of ablation under general [...] palpitations.. He is in class II of [place] Heart Association functional class. There are no [...] his blood pressure logs from [facility] e 5. Lightheadedness and dizziness/ [...] made to ensure accuracy; however, inadvertent computerized fleet mechanic errors may be pre sent. Electronically signed [...] | | | | | | [place] [address] | | | | | | [phone] | | | | | | | | +--------+ + + + + | 05/01/ | Procedure | Cardiology | | | | 2019 | visit | | | | +--------+ + + + + | 05/01/ | Office | Cardiology | [place], | | | 2019 | Visit | | PARISA [place] [address] | | | | | | [place], | | | | | | [place] [address] | | | | | | [phone] | | | | | | | | +--------+ + + + + | 05/21/ | Implant | Cardiology | Daljit Singletary, | Remote Device | 2019 | Monitor | | [address] [facility] | Interrogation | | | | | [place], | (Primary Dx); | | | | | [place] [address] | Pacemaker; | | | | | [phone] | Sinoatrial node | | | | [...] 07, 2014 : | | | 1960 Information Consultant: Kailey Pruitt RN Device | | | Pyrometer Mechanic:Destinator Technologiestronic Sense (mV) Impedance (?) Capture (V) | | | Capture (ms) A Lead >5.60 402 1.500 0.09 RV Lead >31.36 522 2.00 | | | 0.09 LV Lead Battery Impedance (?): 528 Battery Voltage (V): | | | 2.79 NJ Interval (ms): 147 AR Interval (ms): 217 VA Conduction: | | | Mode Switch Events: 0 % of time: 0 -PARK RANGER: <0.1% AP-PARK RANGER: 0.1% -VS: | | | 23.8% AP-VS: 76.1% PARK RANGER: Magnetic Rate: 85 LINDA: 65 LEAH: Current [...] | | Date: March 07, 2014DOB: 1960 Information Consultant: Kailey Pruitt RN Device | | Pyrometer Mechanic:Medtronic Sense (mV) Impedance (?) Capture (V) Capture (ms) A Lead >5.60 | | 402 1.500 0.09 RV Lead >31.36 522 2.00 0.09 LV Lead Battery Impedance (?): 528 | | Battery Voltage (V): 2.79 NJ Interval (ms): 147 AR Interval (ms): 217 VA Conduction: | | Mode Switch Events: 0 % of time: 0 -PARK RANGER: <0.1% AP-PARK RANGER: 0.1% -VS: 23.8% AP-VS: 76.1% | | PARK RANGER: Magnetic Rate: 85 LINDA: 65 LEAH: Current [...] due in 6 months. Electronically signed by: Kialey Pruitt RN 03/07/2014 | | 12:00 | [...]
--- OUTSIDE RECORDS SUMMARY | ~2020-04-13 | XMS | Encounter Summary ---
Demographics + + + | Address | [address] | | | [place] [address] | + + + | Home Phone [...] Providers + +------+ + | Care Machine Installer Name | Role | Phone | [...] | RN | | | | | [place], | | | | | | [place] [address] | | | | | | [phone] | | | +--------+ + + + [...] W | | | | | | [place], | | | | | | [place] [address] | | | | | | [phone] | | | | | | | | +--------+ + + + + | 05/01/ | Procedure | Cardiology | | | | 2019 | visit | | | | +--------+ + + + + | 05/01/ | Office | Cardiology | Silvia | | | 2019 | Visit | | [place] W | | | | | | [place], | | | | | | [place] [address] | | | | | | [phone] | | | | | | | | +--------+ + + + + | 05/21/ | Implant | Cardiology | Daljit Singletary, | Remote Device | | 2019 | Monitor | | MD Sim [place] | Interrogation | | | | | [place], | (Primary Dx); | | | | | [place] [address] | Pacemaker; | | | | | [phone] | Sinoatrial node | | | | | | dysfunction (HCC) | | | | | | with symptomatic | | | | | | bradycardia | +--------+ + + + + documented as of this encounter Visit Diagnoses Not on filedocumented in this encounter"
--- OUTSIDE RECORDS SUMMARY | ~2020-04-13 | XMS | Encounter Summary ---
Demographics + + + | Address | [address] | | | [place] [address] | + + + | Home Phone [...] Providers + +------+ + | Care Online Content Coordinator Name | Role | Phone | [...] 2012 | | CARDIOLOGY [address] | HEAVY EQUIPMENT OPERATING ENGINEER [address] | | | | | [place], | [place] [facility], [place] | | | | | [place] [address] | [address] | | | | | [phone] | | | +--------+ + + + [...] | | | | | | [place] [address] | | | | | | [phone] | | | | | | | [...] | | | | | | [place] [address] | | | | | | [phone] | | | | | | | | +--------+ + + + + | 05/21/ | Implant | Cardiology | Daljit Singletary, | Remote Device | 2019 | Monitor | | MD [address] [place] | Interrogation | | | | | [place], | (Primary Dx); | | | | | [place] [address] | Pacemaker; | | | | | [phone] | Sinoatrial node | | | | | | dysfunction (HCC) | | | | | | with symptomatic | | | | | | bradycardia | +--------+ + + + + documented as of this encounter Visit Diagnoses Not on filedocumented in this encounter"
--- OUTSIDE RECORDS SUMMARY | ~2020-04-13 | XMS | Encounter Summary ---
Demographics + + + | Address | [address] | | | [place] [address] | + + + | Home Phone [...] Providers + +------+ + | Care Concrete Polisher Name | Role | Phone | [...] Problem | | 2012 | | MEDICINE [place] | DO [address] | | | | | [address] | [place] | | | | | [place] | [address] | | | | | [address] | | | | | | [phone] | | | +--------+ + + + [...] | | | | | | [place], | | | | | | [place] [address] | | | | | | [phone] | | | | | | | | +--------+ + + + + | 05/01/ | Procedure | Cardiology | | | | 2019 | visit | | | | +--------+ + + + + | 05/01/ | Office | Cardiology | Silvia, | | 2019 | Visit | | PARISA Vernon W | | | | | | [place], | | | | | | [place] [address] | | | | | | [phone] | | | | | | | | +--------+ + + + + | 05/21/ | Implant | Cardiology | Daljit Singletary, | Remote Device | | 2019 | Monitor | | [address] [facility] | Interrogation | | | | | [place], | (Primary Dx); | | | | | [place] [address] | Pacemaker; | | | | | [phone] | Sinoatrial node | | | | | | dysfunction (HCC) | | | | | | with symptomatic | | | | | | bradycardia | +--------+ + + + + documented as of this encounter Visit Diagnoses Not on filedocumented in this encounter"
--- OUTSIDE RECORDS SUMMARY | ~2020-04-13 | XMS | Encounter Summary ---
Demographics + + + | Address | [address] | | | [place] [address] | + + + | Home Phone [...] Providers + +------+ + | Care Upper Extremity Surgeon Name | Role | Phone | [...] Provider Unknown | | | | | [place], [place] | [phone] | | | | | [address] | | | | | | [phone] | | | +--------+ + + + [...] + + + +---------+ + + | Yorklyn-3 Fatty | CAPS, one capsule by | [...] W | | | | | | [place], | | | | | | [place] [address] | | | | | | [phone] | | | | | | | | +--------+ + + + + | 05/01/ | Procedure | Cardiology | | | | 2019 | visit | | | | +--------+ + + + + | 05/01/ | Office | Cardiology | Sil[place], | | | 2019 | Visit | | [address] | | | | | | [place], | | | | | | [place] [address] | | | | | | [phone] | | | | | | | | +--------+ + + + + | 05/21/ | Implant | Cardiology | Daljit Singletary, | Remote Device | 2019 | Monitor | | [place] | Interrogation | | | | | [place], | (Primary Dx); | | | | | [place] [address] | Pacemaker; | | | | | [phone] | Sinoatrial node | | | | [...]
--- OUTSIDE RECORDS SUMMARY | ~2020-04-13 | XMS | Encounter Summary ---
Demographics + + + | Address | [address] | | | [place] [address] | + + + | Home Phone [...] Providers + +------+ + | Care Associate Quality Engineer Name | Role | Phone | [...] + | 10/04/ | Telephone | [facility] | Daljit Singletary, | Other (Records sent) | | 2012 | | CARDIOLOGY [address] | MD [address] [place] | | | | | [place], | [place], | | | | | [place] [address] | [place] [address] | | | | | [phone] | [phone] | | | | | | | [...] W | | | | | | [place], | | | | | | [place] [address] | | | | | | [phone] | | | | | | | | +--------+ + + + + | 05/01/ | Procedure | Cardiology | | | | 2019 | visit | | | | +--------+ + + + + | 05/01/ | Office | Cardiology | Silvia, | | | 2019 | Visit | | [address]ISA [address] | | | | | | [place], | | | | | | [place] [address] | | | | | | [phone] | | | | | | | | +--------+ + + + + | 05/21/ | Implant | Cardiology | Daljit Singletary, | Remote Device | | 2019 | Monitor | | [address] | Interrogation | | | | | [place], | (Primary Dx); | | | | | [place] [address] | Pacemaker; | | | | | [phone] | Sinoatrial node | | | | | | dysfunction (HCC) | | | | | | with symptomatic | | | | | | bradycardia | +--------+ + + + + documented as of this encounter Visit Diagnoses Not on filedocumented in this encounter"
--- OUTSIDE RECORDS SUMMARY | ~2020-04-13 | XMS | Encounter Summary ---
Demographics + + + | Address | [address] | | | [place] [address] | + + + | Home Phone [...] Providers + +------+ + | Care Oracle Webcenter Consultant Name | Role | Phone | [...] Office | [facility] | [place], | Chest pain (Primary | | 2013 | Visit | CARDIOLOGY [address] | PARISA Vernon [address] | Dx); Symptomatic | | | | [place], | [place], | PVCs; | | | | [place] [address] | [place] [address] | Hyperlipidemia; | | | | [phone] | [phone] | Hypertension; | | | | | [...] Sanchez is a 53 y.o. male. PCP: Micheal Amanda, DO HPI Moe Sanchez is a [...] this time to see a specialist in [place] and he was to follow up with [...] MOUTH EVERY DAY 30 table t 5 [place]-3 Fatty Acids (SALMON OIL-1000 PO) CAPS, one [...] arrhythmia performed by Dr. Gambino at [facility] on 01/30/2013. Patient had spontaneous PVCs [...] go back in 3 days to [place] for an attempt of ablation under general [...] weeks. He is in class II of [place] Heart Association funct ional class. There are [...] tolic function, LVEF 65 to 70%. B. AVOS Cloud DDD permanent pacemaker implantation on 06/14/09 by [...] made to ensure accuracy; however, inadvertent computerized roll icer errors may be pre sent. documented in this encounter Plan of Treatment +--------+ + + + + | Date | Type | Specialty | Care Team | Description | +--------+ + + + + | 05/01/ | Appointment | Radiology | Silvia, | | | 2019 | | | [address] | | | | | | [place], | | | | | | [place] [address] | | | | | | [phone] | | | | | | | | +--------+ + + + + | 05/01/ | Procedure | Cardiology | | | | 2019 | visit | | | | +--------+ + + + + | 05/01/ | Office | Cardiology | Silvia, | | | 2019 | Visit | | [address] | | | | | | [place], | | | | | | [place] [address] | | | | | | [phone] | | | | | | | | +--------+ + + + + | 05/21/ | Implant | Cardiology | Daljit Singletary, | Remote Device | 2019 | Monitor | | [address] [place] | Interrogation | | | | | [place], | (Primary Dx); | | | | | [place] [address] | Pacemaker; | | | | | [phone] | Sinoatrial node | | | | [...] of unspecified type of vessel, | | afognak or graft | + + documented in this encounter
--- OUTSIDE RECORDS SUMMARY | ~2020-04-13 | XMS | Encounter Summary ---
Demographics + + + | Address | [address] | | | [place] [address] | + + + | Home Phone [...] Team Providers + +------+ + | Care Cut Off Saw Tender Metal Name | Role | Phone | [...] 2016 | | CARDIOLOGY [address] | CUT OFF MACHINE UNLOADER [address] [place] | | | | | [place], | [place], [place] | | | | | [place] [address] | [address] | | | | | [phone] | | | +--------+--------+ + + + [...] W | | | | | | [place], | | | | | | [place] [address] | | | | | | [phone] | | | | | | | | +--------+ + + + + | 05/01/ | Procedure | Cardiology | | | | 2019 | visit | | | | +--------+ + + + + | 05/01/ | Office | Cardiology | Silvia, | | | 2019 | Visit | | [address] | | | | | | [place], | | | | | | [place] [address] | | | | | | [phone] | | | | | | | | +--------+ + + + + | 05/21/ | Implant | Cardiology | Daljit Singletary, | Remote Device | | 2019 | Monitor | | [address] [facility] | Interrogation | | | | | [place], | (Primary Dx); | | | | | [place] [address] | Pacemaker; | | | | | [phone] | Sinoatrial node | | | | | | dysfunction (HCC) | | | | | | with symptomatic | | | | | | bradycardia | +--------+ + + + + documented as of this encounter Visit Diagnoses Not on filedocumented in this encounter"
--- OUTSIDE RECORDS SUMMARY | ~2020-04-13 | XMS | Encounter Summary ---
Demographics + + + | Address | [address] | | | [place] [address] | + + + | Home Phone [...] Providers + +------+ + | Care Financial Accounting Manager Name | Role | Phone [...] | on | GASTROENTEROLOGY | [address] [place], [place] | | | | | [address] [place] | [address] [place], [place] | | | | | [address] [place], [place] | [address] | | | | | [address] | | | | | | [phone] | | | +--------+ + + + [...] | | | | | | [place] [address] | | | | | | [phone] | | | | | | | | +--------+ + + + + | 05/01/ | Procedure | Cardiology | | | | 2019 | visit | | | | +--------+ + + + + | 05/01/ | Office | Cardiology | Silvia, | | | 2019 | Visit | | PARISA Vernon [address] | | | | | | [place], | | | | | | [place] [address] | | | | | | [phone] | | | | | | | | +--------+ + + + + | 05/21/ | Implant | Cardiology | Daljit Singletary, | Remote Device | | 2019 | Monitor | | [address] [facility] | Interrogation | | | | | [place], | (Primary Dx); | | | | | [place] [address] | Pacemaker; | | | | | [phone] | Sinoatrial node | | | | | | dysfunction (HCC) | | | | | | with symptomatic | | | | | | bradycardia | +--------+ + + + + documented as of this encounter Visit Diagnoses Not on filedocumented in this encounter"
--- OUTSIDE RECORDS SUMMARY | ~2020-04-13 | XMS | Encounter Summary ---
Demographics + + + | Address | [address] | | | [place] [address] | + + + | Home Phone [...] + +------+ + | Care High School Art Teacher Name | Role | Phone [...] [place], [place] | | | | | [place] | | [address] Phone: | | | | | CYSTO/URETER | | [phone] | | | | | O | | Fax: | | | | | W/LITHOTRIPS | | [phone] | | | | | Y &INDWELL [...] + + | 04/13/ | Hospital | [facility] | Matthew Uriarte | Preoperative | | 2019 | Encounter | MED CTR OR INTRA OP | Dahl, MD [address] | clearance (Primary | | | | [address] | [address] [place] | Dx); Left ureteral | | | | [place] | [address] | calculus; Kidney | | | | [address] | | stones | | | | [phone] | | | +--------+ + + + [...] Care Everywhere.Kidney Stones, Treating: Ureteroscopic Stone Removal (Dominican)Stents, Ureteral (Dominican)documented in this encounter Medications at Time of [...] + + + +---------+ + + | Sacul-3 Fatty | CAPS, one capsule by | [...] | | | | | | | [place] coronary | | | | | | | artery of [place] | | | | | | | [...] | | | | | | [place] [address] | | | | | | [phone] | | | | | | | | +--------+ + + + + | 05/01/ | Procedure | Cardiology | | | | 2019 | visit | | | | +--------+ + + + + | 05/01/ | Office | Cardiology | Silvia, | | | 2019 | Visit | | [address] | | | | | | [place], | | | | | | [place] [address] | | | | | | [phone] | | | | | | | | +--------+ + + + + | 05/21/ | Implant | Cardiology | Daljit Singletary, | Remote Device | | 2019 | Monitor | | [address] | Interrogation | | | | | [place], | (Primary Dx); | | | | | [place] [address] | Pacemaker; | | | | | [phone] | Sinoatrial node | | | | [...] [facility] | | | | | | at:[phone]. | | | | + + + [...] test was developed and | | [facility] | | | | its performance | | - BKR | | | | characteristicsdetermine | | | | | | d by [facility]. It has not | | | [...] + | Performed at: 01 - [facility] [place] [address] [facility], | REFERENCE LAB | | [place], [place] [id number] Acetone Recovery Worker: Yeny Rios MD, Phone: | ARSH CASTANON | | [phone] | | + + + + + + + + | Performing | Address | City/State/Zipcode | Phone Number | | Organization | | | | + + + + + | REFERENCE LAB | [address] | [place], [place] | [phone] | | ARSH CASTANON | [facility] | [address] | | + + + + + [...] + | [facility] | [address] | [place] | [phone] | | [facility] | | [address] | | | - LABORATORY | | [...] + | [facility] | [address] | [place] | [phone] | | [facility] | | [address] | | | - LABORATORY | | [...] + | [facility] | [address] | [place] | [phone] | | [facility] | | [address] | | | - LABORATORY | | [...] + | [facility] | [address] | [place] | [phone] | | [facility] | | [address] | | | - LABORATORY | | [...] | mL/min/1.73m2 | MICHELLE | | | NEPALESE | RATE,ESTIMATED | | MEDICAL | | | | mL/min/1.20q0Tqxt than | | CENTER - | | [...] [address] | [place] | [phone] | | [facility] | | [address] | | | - LABORATORY | | [...] glucose < 50, | | | Starting [facility] 04/13/19 at 0634, | | | [...] | | | | | | | odomdz-lfm-aglnq use of at least | | | [...] day), | | | First dose on [facility] 04/13/19 at | | | 2030, [...]
--- OUTSIDE RECORDS SUMMARY | ~2020-04-13 | XMS | Encounter Summary ---
Demographics + + + | Address | [address] | | | [place] [address] | + + + | Home Phone [...] Providers + +------+ + | Care Sales Department Manager Name | Role | Phone | + +------+ + | Kirk French MD | PCP | | + +------+ + Encounter Details +--------+ + + + + | Date | Type | Department | Care Team | Description | +--------+ + + + + | 07/21/ | Hospital | [facility] | Daljit Singletary, | Palpitations; | | 2018 | Encounter | MED CTR NUCLEAR | MD [address] | Presence of | | | | MEDICINE [address] | [place], | permanent cardiac | | | | [place], | [place] [address] | pacemaker; | | | | [address] | [phone] | Sinoatrial node | | | | [phone] | | dysfunction (HCC) | +--------+ + [...] + + + +---------+ + + | [place]-3 Fatty | CAPS, one capsule by | [...] W | | | | | | [place], | | | | | | [place] [address] | | | | | | [phone] | | | | | | | | +--------+ + + + + | 05/01/ | Procedure | Cardiology | | | | 2019 | visit | | | | +--------+ + + + + | 05/01/ | Office | Cardiology | Silvia, | | | 2019 | Visit | | [address] | | | | | | [place], | | | | | | [place] [address] | | | | | | [phone] | | | | | | | | +--------+ + + + + | 05/21/ | Implant | Cardiology | SunshinecherelleDaljit, | Remote Device | | 2020 | Monitor | | [address] [facility] | Interrogation | | | | | [place], | (Primary Dx); | | | | | [place] [address] | Pacemaker; | | | | | [phone] | Sinoatrial node | | | | [...] 08/25/2018 13:12 Wireless even study from | [facility] | | 07/21 until 08/22/2018. [...]
--- OUTSIDE RECORDS SUMMARY | ~2020-04-13 | XMS | Encounter Summary ---
Demographics + + + | Address | [address] | | | [place] [address] | + + + | Home Phone [...] + +------+ + | Care Plant Operations Vice President Name | Role | Phone | + +------+ + | Kirk French MD | PCP | | + +------+ + Encounter Details +--------+ + + + + | Date | Type | Department | Care Team | Description | +--------+ + + + + | 11/17/ | Telephone | [facility] | Kirk French | | | 2019 | | GERALDINE Guidry MD [address] | | | | | [facility] [address] | | | | | [address] | [place] [address] | | | | | [place], [place] | [phone] | | | | | [address] | | | | | | [phone] | | | +--------+ + + + [...] | | | | | | [place] [address] | | | | | | [phone] | | | | | | | | +--------+ + + + + | 05/01/ | Procedure | Cardiology | | | | 2019 | visit | | | | +--------+ + + + + | 05/01/ | Office | Cardiology | Silvia, | | | 2019 | Visit | | PARISA Vernon [address] | | | | | | [place], | | | | | | [place] [address] | | | | | | [phone] | | | | | | | | +--------+ + + + + | 05/21/ | Implant | Cardiology | Daljit Singletary, | Remote Device | | 2019 | Monitor | | [address] [facility] | Interrogation | | | | | [place], | (Primary Dx); | | | | | [place] [address] | Pacemaker; | | | | | [phone] | Sinoatrial node | | | | | | dysfunction (HCC) | | | | | | with symptomatic | | | | | | bradycardia | +--------+ + + + + documented as of this encounter Visit Diagnoses Not on filedocumented in this encounter"
--- OUTSIDE RECORDS SUMMARY | ~2020-04-13 | XMS | Encounter Summary ---
Demographics + + + | Address | [address] | | | [place] [address] | + + + | Home Phone [...] Team Providers + +------+ + | Care Jtac Name | Role | Phone | + [...] + + | 09/05/ | Office | [facility] | Geri Angel, | SINUS BRADYCARDIA | | 2012 | Visit | CARDIOLOGY [address] | MARKLOGIC DEVELOPER [address] [place] | (Primary Dx); | | | | [place], | [place], [place] | Symptomatic PVCs; | | | | [place] [address] | [address] | Hypertension; | | | | [phone] | | Hyperlipidemia | +--------+---------+ + + [...] and/or ref er you to electrophysiology in [place]. 3. Return in 3 months, or sooner [...] he did not followup with electrophysiology in [place], so he has remained on diltiaze m [...] Family Status Relation Status Age Mother 62 [place] Father Alive Unknown health Brother Alive Sister [...] by mouth Ken y. 30 tablet 6 [place]-3 Fatty Acids (SALMON OIL-1000 PO) Active CAPS, [...] Sanchez Date: September 05, 2013 : 1960 Fitness Coordinator: PARISA Velazquez Device Chief Accounting Officer: [employer] Sense (mV) Impedance (?) Capture (V) Capture (ms) A Lead 4-5.6 417 1.5 0.12 RV Lead >31.36 533 2.0 0.09 LV Lead Battery Impedance (?): 452 Battery Voltage (V): 2.79 MS Interval (ms): 162 AR Interval (ms): 245 VA Conduction: Mode Switch Events: 1 % of time: <0.1 -GREENS CUTTER: <0.1% AP-GREENS CUTTER: 0.1% -VS: 22.7% AP-VS: 77.1% GREENS CUTTER: Magnetic Rate: 85 LINDA: 65 LEAH: Current [...] to go back in 3 days to [place] for an attempt of ablation under general [...] He is upgraded to class I of [place] Heart Association functional class. There are no [...] he would like to see electrophysiology in [place] rather than [place] as he paulino s family there, if [...] made to ensure accuracy; however, inadvertent computerized syrup mixer errors may be pre sent. Electronically signed [...] | | | | | | [place] [address] | | | | | | [phone] | | | | | | | [...] | | | | | | [place] [address] | | | | | | [phone] | | | | | | | | +--------+ + + + + | 05/21/ | Implant | Cardiology | Daljit Singletary, | Remote Device | | 2019 | Monitor | | [address] [place] | Interrogation | | | | | [place], | (Primary Dx); | | | | | [place] [address] | Pacemaker; | | | | | [phone] | Sinoatrial node | | | | [...]
--- OUTSIDE RECORDS SUMMARY | ~2020-04-13 | XMS | Encounter Summary ---
Demographics + + + | Address | [address] [place] [address] [address] | | | [place] [address] | + + + | Home Phone [...] [place] | | | | | [address] | | + + + + + Care Team Providers + +------+ + | Care Scanner Supervisor Name | Role | Phone | [...] Chest pain | Farooq Almaguer, | Chh[address] | | | | | Bradycardia | DO [address] | [address] [place] | | | | | Procedures | [address] | Mailcode: | | | | | | Palak Desai | [facility] | | | | | TRANSTHORACI | [place], [place] | for Health | | | | | C | [address] | and Healing, | | | | | ECHOCARDIOGR | Phone: | Building 1 | | | | | AM, ADULT | [phone] | [place], [place] | | | | | | Fax: | [address] | | | | | | [phone] | Phone: | | | | | | | [phone] | +--------+--------+ + + + + Reason [...] | | | | | | | [place] [id number] | | | | | | | Phone: | | | | | | | [phone] | | | | | | | Fax: | | | | | | | [phone] | | +--------+--------+ + + + + Encounter Details +--------+---------+ + + + | Date | Type | Department | Care Team | Description | +--------+---------+ + + + | 02/03/ | Office | Cardiology General | Arlette Drew, | Chest pain (Primary | | 2010 | Visit | at [facility] [address] | MD | Dx); Bradycardia; | | | | Ave Mailcode: CH7[facility] | | Pacemaker | | | | [facility] | | | | | | and Healing, | | | | | | Building | | | | | | Floor [place], [place] | | | | | | [address] | | | | | | [phone] | | | +--------+---------+ + + + [...] per Dr. Drew's note. Farooq Jamil DO Sourcing Intern Clinical aboriginal ceremonial celebrant/ Division of Cardiovascular Medicine Yajaira Borges, [place] - 02/09/2011 12:59 PM PDT PACEMAKER HISTORY Primary Care Provider: Darion Holden DO Logistics Engineering Manager: Arlette Drew MD Moe Sanchez is a 50 y.o. male. 1. Chest pain (786.50F) 2. Bradycardia (427.89P) Device: Medtronic Adapta ADDR01 Implanted:06/14/09 LIDNA: ADVISORY: NO Mode: AAIR-DDDR Lower Rate: 70 [...] chamber permanent pacemaker implantation on 06/14/09 in [place], Chronic smoker, mild DIDIER, bip olar disorder with anxiety who presents for second opinion regarding his syncopal episodes. Pt. started noticing dizzy spells and episodes of syncope about 3 years ago , pacemaker was put at the recommendation of Logistics Engineering Manager Dr. Singletary from [place]. [place]. Pt. states lala bhatti was put>1 [...] tilt table testing but NA at [facility] May need to involve endocrine [...] Dr. Omero DREW MD CARDIOLOGY - GENERAL [address] Mailcode: [facility], 9th Floor [facility] [address] documented in this en counter Plan [...] ([address] [facility]) | [facility] | | [facility] [address] [place] [facility] | REGIONAL | | [place] [address] | LABORATORY | + + + + + + + + | Performing | Address | City/State/Zipcode | Phone Number | | Organization | | | | + + + + + | [facility] | [address] | [place] [address] | | | LABORATORY | | | [...] RLB ([facility] [facility]) | | | [facility] [place] [address] | | | [address] [facility] [place] [address] | | + + + + + + + + | Performing | Address | City/State/Zipcode | Phone Number | | Organization | | | | + + + + + | [facility] | [address] | [place] [address] | | | LABORATORY | | | [...] | | | DEPARTMENT | | | [place] | | | OF | | | [...] | + + + + + | [facility] DEPARTMENT | [address] | [place] [address] | | | PATHOLOGY | [address] [...] DEPT OF | [address] | [place], [place] | | | CARDIOLOGY | [address] | [address] | | + + + + + EJECTION FRACTION (02/03/2011 3:33 PM PDT) + +-------+ + + + | Component | Value | Ref Range | Performed | Pathologist | | | | | At | Signature | + +-------+ + + + | JENNIFER, EF | 59.1 | | [facility] DE[facility] [...] DEPT OF | [address] | [place], [place] | | | CARDIOLOGY | [address] | [address] | | + + + + + [...] + + + | Please click | [facility] | | on view image for the detailed interpretation from [place] results. | CARDIOLOGY | + + + + + + + + | Performing | Address | City/State/Zipcode | Phone Number | | Organization | | | | + + + + + | [facility] | [address] | [place], [place] | | | CARDIOLOGY | [address] | [address] | | + + + + + documented in this encounter Visit Diagnoses + + | Diagnosis | + + | Chest pain - Primary Chest pain, unspecified | + + | Bradycardia Other specified cardiac dysrhythmias | + + | Pacemaker Cardiac pacemaker in situ | + + documented in this encounter
--- OUTSIDE RECORDS SUMMARY | ~2020-04-13 | XMS | Encounter Summary ---
Demographics + + + | Address | [address] | | | [place] [address] | + + + | Home Phone [...] Team Providers + +------+ + | Care Log Roller Name | Role | Phone | + [...] 2014 | | CARDIOLOGY [address] | PARASITOLOGY TEACHER [address] [place] | | | | | [place], | [place], [place] | | | | | [place] [address] | [address] | | | | | [phone] | | | +--------+ + + + [...] W | | | | | | [place], | | | | | | [place] [address] | | | | | | [phone] | | | | | | | | +--------+ + + + + | 05/01/ | Procedure | Cardiology | | | | 2019 | visit | | | | +--------+ + + + + | 05/01/ | Office | Cardiology | Silvia, | | | 2019 | Visit | | [address] | | | | | | [place], | | | | | | [place] [address] | | | | | | [phone] | | | | | | | | +--------+ + + + + | 05/21/ | Implant | Cardiology | Daljit Singletary, | Remote Device | | 2019 | Monitor | | [address] [place] | Interrogation | | | | | [place], | (Primary Dx); | | | | | [place] [address] | Pacemaker; | | | | | [phone] | Sinoatrial node | | | | | | dysfunction (HCC) | | | | | | with symptomatic | | | | | | bradycardia | +--------+ + + + + documented as of this encounter Visit Diagnoses Not on filedocumented in this encounter"
--- OUTSIDE RECORDS SUMMARY | ~2020-04-13 | XMS | Encounter Summary ---
Demographics + + + | Address | [address] | | | [place] [address] | + + + | Home Phone [...] Team Providers + +------+ + | Care Past Due Accounts Clerk Name | Role | Phone | [...] Provider Unknown | | | | | [place], [place] | [phone] | | | | | [address] | | | | | | [phone] | | | +--------+ + + + [...] + + + +---------+ + + | Edna-3 Fatty | CAPS, one capsule by | [...] | | | | | | | #[id number], exp 07/2016 | | | | | [...] | | | | | | [place] [address] | | | | | | [phone] | | | | | | | | +--------+ + + + + | 05/01/ | Procedure | Cardiology | | | | 2019 | visit | | | | +--------+ + + + + | 05/01/ | Office | Cardiology | Silvia, | | | 2019 | Visit | | PARISA Vernon [address] | | | | | | [place], | | | | | | [place] [address] | | | | | | [phone] | | | | | | | | +--------+ + + + + | 05/21/ | Implant | Cardiology | Daljit Singletary, | Remote Device | | 2020 | Monitor | | [address] [place] | Interrogation | | | | | [place], | (Primary Dx); | | | | | [place] [address] | Pacemaker; | | | | | [phone] | Sinoatrial node | | | | | | dysfunction ([facility]) | | | | | | [...]
--- OUTSIDE RECORDS SUMMARY | ~2020-04-13 | XMS | Encounter Summary ---
Demographics + + + | Address | [address] | | | [place] [address] | + + + | Home Phone [...] Providers + +------+ + | Care Supervisor Mold Yard Name | Role | Phone | [...] | | | pain | [address] | [address] | | | | | Procedures | St [place] | [place], | | | | | [place] Nuclear | [place], [place] | [place] | | | | | Stress Test | [address] | [address] | | | | | (Vasodilator | Phone: | Phone: | | | | | ) CHG | [phone] | [phone] | | | | | MYOCARDIAL | Fax: | Fax: | | | | | SPECT | [phone] | [phone] | | | | | MULTIPLE | [...] 2012 | | CARDIOLOGY [address] | HEALTH AND SAFETY CONSULTANT [address] | interactions, chest | | | | [address], | [place], [place] | pain) | | | | [place] [address] | [address] | | | | | [phone] | | | +--------+ + + + [...] | | | | | | [place] [address] | | | | | | [phone] | | | | | | | [...] | | | | | | [place] [address] | | | | | | [phone] | | | | | | | | +--------+ + + + + | 05/21/ | Implant | Cardiology | SunshinecherelleDaljit, | Remote Device | | 2019 | Monitor | | MD [address] | Interrogation | | | | | [place], | (Primary Dx); | | | | | [place] [address] | Pacemaker; | | | | | [phone] | Sinoatrial node | | | | [...] [facility] Diagnostic [facility] | BADGER | | Department [address] [facility] [place] | [place] | | [ rep [address]] [ rep [facility] | | [facility]] Signed | - IMAGING | | | | | Patient Name: MOE GAY | | | Physician: JACKLYN : 1960 Age: 53 Sex: M Unit | | | #: [id number] Exam Date: 12/06/13 Location: | | | [facility] [place] Report #: [id number] Page: | | | %(RAD)RES..mtdd.print.filter("pg") of %(RAD) | | | RES..mtdd.print.filter("tpg") | | | | | | Accession Number: [id number] | | | PERSANTINE SESTAMIBI STRESS TEST, [...] Transcribed Date/Time: 12/07/2013 08:18 | | | Powertrain Control Systems Engineer: <<Signature on File>> | | | | | | Daljit Singletary MD [facility] FASE12/07/13 1321 <Electronically signed | | | by Daljit Singletary MD, FAC, FACP, FASNanette, [facility]> Daljit | | | MD Gemini [facility] FASE 12/07/13 0701 Powertrain Control Systems Engineer: [email or web address] | | | Cweqgwlrwwhpz69/16/14 0818 PARISA Garcia | | + + + + + + + + | Performing | Address | City/State/Zipcode | Phone Number | | Organization | | | | + + + + + | [facility] | [address] | [place] | [phone] | | [facility] | | [address] | | | - IMAGING | | | | + + + + + documented in this encounter Visit Diagnoses + + | Diagnosis | + + | Other chest pain - Primary | + + documented in this encounter
--- OUTSIDE RECORDS SUMMARY | ~2020-04-13 | XMS | Encounter Summary ---
Demographics + + + | Address | [address] | | | [place] [address] | + + + | Home Phone [...] Providers + +------+ + | Care Electrical Design Technologist Name | Role | Phone | [...] 2012 | | CARDIOLOGY [address] | EMG TECHNICIAN [address] | to be referred | | | | [place], | [place], [place] | soon) | | | | [place] [address] | [address] | | | | | [phone] | | | +--------+ + + + [...] | | | | | | [place] [address] | | | | | | [phone] | | | | | | | | +--------+ + + + + | 05/01/ | Procedure | Cardiology | | | | 2019 | visit | | | | +--------+ + + + + | 05/01/ | Office | Cardiology | Silvia, | | | 2019 | Visit | | [address] | | | | | | [place], | | | | | | [place] [address] | | | | | | [phone] | | | | | | | | +--------+ + + + + | 05/21/ | Implant | Cardiology | Daljit Singletary, | Remote Device | | 2020 | Monitor | | [address] [facility] [place] | Interrogation | | | | | [place], | (Primary Dx); | | | | | [place] [address] | Pacemaker; | | | | | [phone] | Sinoatrial node | | | | | | dysfunction (HCC) | | | | | | with symptomatic | | | | | | bradycardia | +--------+ + + + + documented as of this encounter Visit Diagnoses Not on filedocumented in this encounter"
--- OUTSIDE RECORDS SUMMARY | ~2020-04-13 | XMS | Encounter Summary ---
Demographics + + + | Address | [address] | | | [place] [address] | + + + | Home Phone [...] Providers + +------+ + | Care Web Designer Name | Role | Phone | [...] 2017 | | CARDIOLOGY [address] | LIQUID WASTE TREATMENT PLANT OPERATOR [address] [place] | | | | | [place], | [place], [place] | | | | | [place] [address] | [address] | | | | | [phone] | | | +--------+--------+ + + + [...] W | | | | | | [place], | | | | | | [place] [address] | | | | | | [phone] | | | | | | | | +--------+ + + + + | 05/01/ | Procedure | Cardiology | | | | 2019 | visit | | | | +--------+ + + + + | 05/01/ | Office | Cardiology | Silvia, | | | 2019 | Visit | | [address] | | | | | | [place], | | | | | | [place] [address] | | | | | | [phone] | | | | | | | | +--------+ + + + + | 05/21/ | Implant | Cardiology | Daljit Singletary, | Remote Device | | 2019 | Monitor | | [facility] | Interrogation | | | | | [place], | (Primary Dx); | | | | | [place] [address] | Pacemaker; | | | | | [phone] | Sinoatrial node | | | | | | dysfunction (HCC) | | | | | | with symptomatic | | | | | | bradycardia | +--------+ + + + + documented as of this encounter Visit Diagnoses Not on filedocumented in this encounter"
--- OUTSIDE RECORDS SUMMARY | ~2020-04-13 | XMS | Encounter Summary ---
Demographics + + + | Address | [address] | | | [place] [address] | + + + | Home Phone [...] Providers + +------+ + | Care Operator Receptionist Name | Role | Phone | [...] | 03/02/ | Telephone | [facility] [address] | Daljit Singletary, | Other | | 2013 | | CARDIOLOGY [address] | MD [address] [place] | | | | | [place], | [place], | | | | | [place] [address] | [place] [address] | | | | | [phone] | [phone] | | | | | | | [...] W | | | | | | [place], | | | | | | [place] [address] | | | | | | [phone] | | | | | | | | +--------+ + + + + | 05/01/ | Procedure | Cardiology | | | | 2019 | visit | | | | +--------+ + + + + | 05/01/ | Office | Cardiology | Silvia, | | | 2019 | Visit | | PRAISA [address] | | | | | | [place], | | | | | | [place] [address] | | | | | | [phone] | | | | | | | | +--------+ + + + + | 05/21/ | Implant | Cardiology | Daljit Singletary, | Remote Device | 2019 | Monitor | | MD [address] [place] | Interrogation | | | | | [place], | (Primary Dx); | | | | | [place] [address] | Pacemaker; | | | | | [phone] | Sinoatrial node | | | | | | dysfunction (HCC) | | | | | | with symptomatic | | | | | | bradycardia | +--------+ + + + + documented as of this encounter Visit Diagnoses Not on filedocumented in this encounter"
--- OUTSIDE RECORDS SUMMARY | ~2020-04-13 | XMS | Encounter Summary ---
Demographics + + + | Address | [address] | | | [place] [address] | + + + | Home Phone [...] Providers + +------+ + | Care Automotive Tire Worker Name | Role | Phone | + +------+ + | Kirk French MD | PCP | | + +------+ + Encounter Details +--------+ + + + + | Date | Type | Department | Care Team | Description | +--------+ + + + + | 07/21/ | Hospital | [facility] | Daljit Singletary, | | | 2018 | Encounter | MED CTR NUCLEAR | MD [address] | | | | | MEDICINE [address] | [address] [place], | | | | | [place] | [place] [address] | | | | | [place] [address] | [phone] | | | | | [phone] | | | +--------+ + + + [...] + + + +---------+ + + | Esopus-3 Fatty | CAPS, one capsule by | [...] W | | | | | | [place], | | | | | | [place] [address] | | | | | | [phone] | | | | | | | | +--------+ + + + + | 05/01/ | Procedure | Cardiology | | | | 2019 | visit | | | | +--------+ + + + + | 05/01/ | Office | Cardiology | Silvia, | | | 2019 | Visit | | PARISA Vernon [address] | | | | | | [place], | | | | | | [place] [address] | | | | | | [phone] | | | | | | | | +--------+ + + + + | 05/21/ Implant | Cardiology | Daljit Singletary, | Remote Device | | 2019 | Monitor | | [address] [facility] | Interrogation | | | | | [place], | (Primary Dx); | | | | | [place] [address] | Pacemaker; | | | | | [phone] | Sinoatrial node | | | | [...] | | Starting [facility] 07/21/18 at 1224, For | | | | | | | 1 dose, Nuclear Medicine | | | | | | + +--------+ + +------+------+ +---+---+ | | | +---+---+ documented in this encounter"
--- OUTSIDE RECORDS SUMMARY | ~2020-04-13 | XMS | Encounter Summary ---
Demographics + + + | Address | [address] | | | [place] [address] | + + + | Home Phone [...] Team Providers + +------+ + | Care Honing Machine Operator Name | Role | Phone [...] [place], [place] | | | | | [place] | | [address] Phone: | | | | | CYSTO/URETER | | [phone] | | | | | O | | Fax: | | | | | W/LITHOTRIPS | | [phone] | | | | | Y &INDWELL [...] + + | 04/13/ | Surgery | [facility] | Matthew Uriarte | Cystoscopy, Left | | 2018 | | MED CTR OR INTRA OP | Dahl, MD [address] | ureteroscopy with | | | | [address] | [place] | laser lithotripsy, | | | | [place] | [address] | Left ureteral stent | | | | [address] | | placement | | | | [phone] | | | +--------+---------+ + + + [...] Care Everywhere.Kidney Stones, Treating: Ureteroscopic Stone Removal (Malaysian)Stents, Ureteral (Malaysian)documented in this encounter Medications at Time of [...] | | | | | | | capitan grande coronary | | | | | | | artery of capitan grande | | | | | | | [...] W | | | | | | [place], | | | | | | [place] [address] | | | | | | [phone] | | | | | | | | +--------+ + + + + | 05/01/ | Procedure | Cardiology | | | | 2019 | visit | | | | +--------+ + + + + | 05/01/ | Office | Cardiology | Silvia, | | | 2019 | Visit | | [address] | | | | | | [place], | | | | | | [place] [address] | | | | | | [phone] | | | | | | | | +--------+ + + + + | 05/21/ | Implant | Cardiology | Daljit Singletary, | Remote Device | 2019 | Monitor | | [address] | Interrogation | | | | | [place], | (Primary Dx); | | | | | [place] [address] | Pacemaker; | | | | | [phone] | Sinoatrial node | | | | [...] [facility] | | | | | | at:[phone]. | | | | + + + [...] + + | Performed at: 01 - [facility] [address] [facility], | REFERENCE LAB | | [place], [place] [id number] Complaint Inspector: Yeny Rios MD, Phone: | ARSH CASTANON | | [phone] | | + + + + + + + + | Performing | Address | City/State/Zipcode | Phone Number | | Organization | | | | + + + + + | REFERENCE LAB | [address] | [place], [place] | [phone] | | ARSH CASTANON | [facility] | [address] | | + + + + + [...] + | [facility] | [address] | [place] | [phone] | | [facility] | | [address] | | | - LABORATORY | | [...] + | [facility] | [address] | [place] | [phone] | | [facility] | | [address] | | | - LABORATORY | | [...] [address] | [place] | [phone] | | [facility] | | [address] | | | - LABORATORY | | [...] + | [facility] | [address] | [place] | [phone] | | [facility] | | [address] | | | - LABORATORY | | [...] | mL/min/1.73m2 | MICHELLE | | | BULGARIAN | RATE,ESTIMATED | | MEDICAL | | | | mL/min/1.23v5Omli than | | CENTER - | | [...] [address] | [place] | [phone] | | [facility] | | [address] | | | - LABORATORY | | [...] First | | | dose on [facility] 04/13/19 at 1400, | | | Start 8 hours after pre-op dose., | | | Post-op/Phase II | | + +---+ | | | + +---+ | albuterol 2.5 mg/3 mL nebulizer | | | solution 2.5 mg 2.5 mg, | | | Nebulization, ONCE PRN, Wheezing, | | | Starting [facility] 04/13/19 at 0917, | | | [...] < 40, | | | Starting [facility] 04/13/19 at 0917, For | | [...] | | | | | | | afbdtp-rdx-bfgkd use of at least | | | [...] | | | First dose on [facility] 04/13/19 at | | | 2030, [...] | | | | CONTINUOUS, Starting [facility] 04/13/19 | | AM PDT | | | | | at 0700, TKO., Pre-op | | | | | | + +---------+ +---+---+---+ + +---+ | | | + +---+ | midazolam (VERSED) 1 mg/mL | | | injection 0.5-2 mg 0.5-2 mg, | | | Intravenous, EVERY 5 MIN PRN, | | | Anxiety, or agitation, Starting | | | [facility] 04/13/19 at 0917, Maximum | | [...]
--- OUTSIDE RECORDS SUMMARY | ~2020-04-13 | XMS | Encounter Summary ---
Demographics + + + | Address | [address] | | | [place] [address] | + + + | Home Phone [...] Providers + +------+ + | Care Paper Winder Name | Role | Phone | [...] Provider Unknown | | | | | [place], [place] | [phone] | | | | | [address] | | | | | | [phone] | | | +--------+ + + + [...] + + + +---------+ + + | Cragford-3 Fatty | CAPS, one capsule by | [...] W | | | | | | [place], | | | | | | [place] [address] | | | | | | [phone] | | | | | | | | +--------+ + + + + | 05/01/ | Procedure | Cardiology | | | | 2019 | visit | | | | +--------+ + + + + | 05/01/ | Office | Cardiology | Silvia, | | | 2019 | Visit | | PARISA [address] W | | | | | | [place], | | | | | | [place] [address] | | | | | | [phone] | | | | | | | | +--------+ + + + + | 05/21/ | Implant | Cardiology | Daljit Singletary, | Remote Device | 2019 | Monitor | | MD [address] [place] | Interrogation | | | | | [place], | (Primary Dx); | | | | | [place] [address] | Pacemaker; | | | | | [phone] | Sinoatrial node | | | | [...]
--- OUTSIDE RECORDS SUMMARY | ~2020-04-13 | XMS | Encounter Summary ---
Demographics + + + | Address | [address] | | | [place] [address] | + + + | Home Phone [...] Team Providers + +------+ + | Care Christian Education Director Name | Role | Phone | + +------+ + | Kirk French MD | PCP | | + +------+ + Encounter Details +--------+ + + + + | Date | Type | Department | Care Team | Description | +--------+ + + + + | 01/21/ | Anesthesia | [facility] | Jarett Barakat | | | 2020 | Event | MED CTR MP INTRA OP | P, MD [address] | | | | | [address] | [place], [place] | | | | | [place], [place] | [address] | | | | | [address] | [phone] | | | | | [phone] | | | +--------+ + + + [...] + +---------+ | 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 | | | ker | | | | +--------+ + +---------+ | 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, | (Primary Dx); | | | | | [place] [address] | Pacemaker; | | | | | [phone] | Sinoatrial node | | | | | | dysfunction (HCC) | | | | | | with symptomatic | | | | | | bradycardia | +--------+ + + + + documented as of this encounter Visit Diagnoses Not on filedocumented in this encounter"
--- OUTSIDE RECORDS SUMMARY | ~2020-04-13 | XMS | Encounter Summary ---
Demographics + + + | Address | [address] | | | [place] [address] | + + + | Home Phone [...] Team Providers + +------+ + | Care Psychic Reader Name | Role | Phone | [...] | 2018 | Changes | GASTROENTEROLOGY | Records Management Coordinator | | | | | [address] [facility] | | | | | | [address] [place] | | | | | | [address] | | | | | | [phone] | | | +--------+ + + + [...] W | | | | | | [place], | | | | | | [place] [address] | | | | | | [phone] | | | | | | | | +--------+ + + + + | 05/01/ | Procedure | Cardiology | | | | 2019 | visit | | | | +--------+ + + + + | 05/01/ | Office | Cardiology | Silvia, | | | 2019 | Visit | | [address] | | | | | | [place], | | | | | | [place] [address] | | | | | | [phone] | | | | | | | | +--------+ + + + + | 05/21/ | Implant | Cardiology | Daljit Singletary, | Remote Device | | 2020 | Monitor | | [facility] | Interrogation | | | | | [place], | (Primary Dx); | | | | | [place] [address] | Pacemaker; | | | | | [phone] | Sinoatrial node | | | | | | dysfunction (HCC) | | | | | | with symptomatic | | | | | | bradycardia | +--------+ + + + + documented as of this encounter Visit Diagnoses Not on filedocumented in this encounter"
--- OUTSIDE RECORDS SUMMARY | ~2020-04-13 | XMS | Encounter Summary ---
Demographics + + + | Address | [address] | | | [place] [address] | + + + | Home Phone [...] Team Providers + +------+ + | Care Bin Filler Name | Role | Phone | [...] [place] | | | | | [address] [place], [place] | [address] | | | | | [address] | | | | | | [phone] | | | +--------+ + + + [...] W | | | | | | [place], | | | | | | [place] [address] | | | | | | [phone] | | | | | | | | +--------+ + + + + | 05/01/ | Procedure | Cardiology | | | | 2019 | visit | | | | +--------+ + + + + | 05/01/ | Office | Cardiology | Silvia, | | | 2019 | Visit | | [address] | | | | | | [place], | | | | | | [place] [address] | | | | | | [phone] | | | | | | | | +--------+ + + + + | 05/21/ | Implant | Cardiology | Daljit Singletary, | Remote Device | | 2020 | Monitor | | [address] [facility] | Interrogation | | | | | [place], | (Primary Dx); | | | | | [place] [address] | Pacemaker; | | | | | [phone] | Sinoatrial node | | | | [...]
--- OUTSIDE RECORDS SUMMARY | ~2020-04-13 | XMS | Encounter Summary ---
Demographics + + + | Address | [address] | | | [place] [address] | + + + | Home Phone [...] Providers + +------+ + | Care Rehabilitation Therapy Technician Name | Role | Phone | + +------+ + | Kirk French MD | PCP | | + +------+ + Encounter Details +--------+ + + + + | Date | Type | Department | Care Team | Description | +--------+ + + + + | 01/05/ | Hospital | [facility] | Emmanuel Daniel MD | Functional diarrhea | | 2019 | Encounter | MED CTR MP INTRA OP | [address], [place] | (Primary Dx); Weight | | | | [address] | [address] [place] | loss | | | | [place], [place] | [address] | | | | | [address] | | | | | | [phone] | | | +--------+ + + + [...] for a few hours. Date Last Reviewed: 09/22/201619994108-1144 [employer]. [address] [place] [address], [place] [address]. All righ ts reserved. This information is [...] vomiting, or vomiting blood Date Last Reviewed: 05/22/201619991869-2649 [employer]. [address] [place] [address]. All [facility] ts reserved. This information is not [...] You can't be awakened Date Last Reviewed: 09/08/201619994024-1415 [employer]. [address] [place] [address], [place] [address]. All righ ts reserved. This information is [...] + + + +---------+ + + | [place]-3 Fatty | CAPS, one capsule by | [...] | | | | | | [place] [address] | | | | | | [phone] | | | | | | | | +--------+ + + + + | 05/01/ | Procedure | Cardiology | | | | 2019 | visit | | | | +--------+ + + + + | 05/01/ | Office | Cardiology | Silvia, | | | 2019 | Visit | | PARISA Vernon [address] | | | | | [address] [place], | | | | | | [place] [address] | | | | | | [phone] | | | | | | | | +--------+ + + + + | 05/21/ | Implant | Cardiology | Daljit Singletary, | Remote Device | 2019 | Monitor | | [address] | Interrogation | | | | | [place], | (Primary Dx); | | | | | [place] [address] | Pacemaker; | | | | | [phone] | Sinoatrial node | | | | [...] | REFERENCE LAB | | [place] [id number] Loss Prevention Associate: Miguel Galarza MD, Phone: | [facility]SH [facility]STANON | | [phone] | | + + + + + + + + | Performing | Address | City/State/Zipcode | Phone Number | | Organization | | | | + + + + + | REFERENCE LAB | [address] | [place], [place] | [phone] | | [facility] | [address] | [address] | | + + + + + [...] [address], | REFERENCE LAB | | [place], [place] [address] Loss Prevention Associate: Miguel Galarza MD, Phone: | [facility] | | [phone] | | + + + + + + + + | Performing | Address | City/State/Zipcode | Phone Number | | Organization | | | | + + + + + | REFERENCE LAB | [address] | [place], [place] | [phone] | | [facility] | [facility] | [address] | | + + + + + [...] [address] | [place] | [phone] | | [facility] | | [address] | | | - LABORATORY | | [...] [address] | [place] | [phone] | | [facility] | | [address] | | | - LABORATORY | | [...] [address] | [place] | [phone] | | [facility] | | [address] | | | - LABORATORY | | [...] | | Antigen, | | | [facility] | | | Stool | | | [...] [address] | [place] | [phone] | | [facility] | | [address] | | | - LABORATORY | | [...] + | [facility] | [address] | [place], [place] | [phone] | | [facility] | | [address] | | | - LABORATORY | | [...] [address] | [place] | [phone] | | [facility] | | [address] | | | - LABORATORY | | | | + + + + + EGD (01/05/2019 8:36 AM PST) + + | Specimen | + + | | + + + + -+ | Narrative | Performed At | + + -+ | | [facility] | | GastroenterologyPatient Name: Moe SanchezProcedpasha Date: | PROVATION | | 01/05/2019 8:36 AMMRN: [id number] #: [id number] of : | | | 9Admit Type: AmbulatoryAge: 58Room: [facility] 01Gender: MaleNote | | | Status: FinalizedAttending MD: Emmanuel Daniel , MDProcedure: | | | Upper GI endoscopyIndications: Diarrhea, Weight | | | lossProviders: Emmanuel Daniel MD, Heidi [place], | | | RN, Kim Hicks, Dough Cutter, | | | Jarett Barakat MD (Anesthesia [...] physician, the nurse, the anesthesiologist and the cardiac technician | | | in the endoscopy [...] | | Imaging was performed using the [employer] | | | Endoscopy (FICE) [...] Scope In: 8:43:57 AMScope Out: 8:49:50 AM [facility]. | | | [facility], [address] [place] [address] | | | [phone] | | |Recommendation: | | | - [...] |Scope Out: 8:49:50 AM | | | [facility]. [facility], [facility] [address] [place], [place] | | | [address] | | + + -+ + +---------+ + + | Performing | Address | City/State/[facility] Facilitycode | Phone Number | | Organization | [...] | [facility]OVATION | | 01/05/2019 8:36 AMMRN: [id number] #: [id number] of : | | | 9Admit Type: AmbulatoryAge: 58Room: [facility] 01Gender: MaleNote | | | Status: FinalizedAttending MD: Emmanuel Daniel , MDProcedure: | | | ColonoscopyIndications: Clinically significant diarrhea of | | | unexplained origin, Weight lossProviders: | | | Emmanuel Daniel MD, Heidi An RN, Kim | | | Fiorella Hicks, Dough Cutter, Jarett Alejo | | | MD Roshni [...] | | | the anesthesiologist and the cardiac technician in the endoscopy suite. | | [...] AMScope Out: | | | 9:06:28 AM [facility], [address] [place] [address], | | | [place] [address] | | | - Discharge patient to [...] |Scope Out: 9:06:28 AM | | | [facility], [address] [place] [address], [place], [place] | | | [address] | | + + -+ + +---------+ [...] | | | (atherosclerotic heart disease of [place] ira coronary artery without | | | angina [...] [facility]:C3NR GROSS DESCRIPTION: A. The | | | specimen, labeled "Wingo, duodenal biopsy" is received in formalin | | | and consists of seven 0.1-0.5 cm lin fragments. Entirely submitted in | | | (A1). B. The specimen, labeled "Wingo, right colon" is received | | | in formalin and consists of six 0.2-0.3 cm lin fragments. Entirely | | | submitted in (B1). C. The specimen, labeled "Wingo, left colon" | | | is received in formalin and consists of six 0.2-0.3 cm lin-pink | | | fragments. Entirely submitted in (C1). am:AMB:portillo PERFORMING | | | LABORATORY: The technical component was performed by [employer] | | | [employer], [address] [place] [address] (Assistant Finance Manager: | | | Kailey Stafford MD; CLIA# [id number]). Professional interpretation was | | | performed by [employer], [facility], [address] | | | [place] [address] (Assistant Finance Manager: Ishaan | | | Anthony Dao; CLIA#: [id number]). Diagnostician: Ishaan Fitzpatrick | | | Sylwia [...]
--- OUTSIDE RECORDS SUMMARY | ~2020-04-13 | XMS | Encounter Summary ---
Demographics + + + | Address | [address] [place] [address] [address] | | | [place] [address] | + + + | Home Phone [...] [place] | | | | | [address] | | + + + + + Care Team Providers + +------+ + | Care Fx Artist Name | Role | Phone | [...] | | | | | Unintentiona | [place], [place] | | | | | | l weight | [address] | | | | | | loss | Phone: | | | | | | Procedures | [phone] | | | | | | CONSULT TO | Fax: | | | | | | NON - IVETTE | [phone] | | | | | | PROVIDER [...] | | Center at [facility] [address] | MD [address] | normal, recommend | | | | [address] | [place], [place] | hyoscyamine) | | | | Mailcode: Cache | [address] | | | | | for Health and | [phone] | | | | | [facility], [facility] [address] | | | | | | [place], [place] | | | | | | [address] | | | | | | [phone] | | | +--------+ + + + [...]
--- OUTSIDE RECORDS SUMMARY | ~2020-04-13 | XMS | Encounter Summary ---
Demographics + + + | Address | [address] | | | [place] [address] | + + + | Home Phone [...] Team Providers + +------+ + | Care Upholstered Goods Crafter Name | Role | Phone | + [...] Refill | | 2013 | | [facility] | DO [address] | | | | | [address] | [place] | | | | | [place] | [address] | | | | | [address] | | | | | | [phone] | | | +--------+--------+ + + + [...] | | | | | | [place] [address] | | | | | | [phone] | | | | | | | [...] | | | | | | [place] [address] | | | | | | [phone] | | | | | | | | +--------+ + + + + | 05/21/ | Implant | Cardiology | Daljit Singletary, | Remote Device | | 2019 | Monitor | | [address] [facility] | Interrogation | | | | | [place] [place], | (Primary Dx); | | | | | [place] [address] | Pacemaker; | | | | | [phone] | Sinoatrial node | | | | | | dysfunction (HCC) | | | | | | with symptomatic | | | | | | bradycardia | +--------+ + + + + documented as of this encounter Visit Diagnoses Not on filedocumented in this encounter"
--- OUTSIDE RECORDS SUMMARY | ~2020-04-13 | XMS | Encounter Summary ---
Demographics + + + | Address | [address] | | | [place] [address] | + + + | Home Phone [...] Providers + +------+ + | Care Client Success Specialist Name | Role | Phone | [...] | RN | | | | | [place], | | | | | | [place] [address] | | | | | | [phone] | | | +--------+ + + + [...] W | | | | | | [place], | | | | | | [place] [address] | | | | | | [phone] | | | | | | | | +--------+ + + + + | 05/01/ | Procedure | Cardiology | | | | 2019 | visit | | | | +--------+ + + + + | 05/01/ | Office | Cardiology | Silvia | | | 2019 | Visit | | PARISA Vernon W | | | | | | [place], | | | | | | [place] [address] | | | | | | [phone] | | | | | | | | +--------+ + + + + | 05/21/ | Implant | Cardiology | Daljit Singletary, | Remote Device | | 2019 | Monitor | | MD [address] [place] | Interrogation | | | | | [place], | (Primary Dx); | | | | | [place] [address] | Pacemaker; | | | | | [phone] | Sinoatrial node | | | | | | dysfunction (HCC) | | | | | | with symptomatic | | | | | | bradycardia | +--------+ + + + + documented as of this encounter Visit Diagnoses Not on filedocumented in this encounter"
--- OUTSIDE RECORDS SUMMARY | ~2020-04-13 | XMS | Encounter Summary ---
Demographics + + + | Address | [address] | | | [place] [address] | + + + | Home Phone [...] Team Providers + +------+ + | Care Sliver Lap Machine Tender Name | Role | Phone | + +------+ + PCP | Unavailable | + +------+ + Encounter Details +--------+ + + + + | Date | Type | Department | Care Team | Description | +--------+ + + + + | 09/24/ | [facility] | [facility] | Evan Gandara MD | | | 2005 | Encounter | MED CTR XRAY [address] | [address] [facility] | | | | | [place] | [place] | | | | | [place] [address] | [address] | | | | | [phone] | | | +--------+ + + + [...] W | | | | | | [place], | | | | | | [place] [address] | | | | | | [phone] | | | | | | | | +--------+ + + + + | 05/01/ | Procedure | Cardiology | | | | 2019 | visit | | | | +--------+ + + + + | 05/01/ | Office | Cardiology | Silvia, | | | 2019 | Visit | | PARISA Vernon W | | | | | | [place], | | | | | | [place] [address] | | | | | | [phone] | | | | | | | | +--------+ + + + + | 05/21/ | Implant | Cardiology | Daljit Singletary, | Remote Device | 2019 | Monitor | | MD [address] [place] | Interrogation | | | | | [place], | (Primary Dx); | | | | | [place] [address] | Pacemaker; | | | | | [phone] | Sinoatrial node | | | | | | dysfunction (HCC) | | | | | | with symptomatic | | | | | | bradycardia | +--------+ + + + + documented as of this encounter Visit Diagnoses Not on filedocumented in this encounter"
--- OUTSIDE RECORDS SUMMARY | ~2020-04-13 | XMS | Encounter Summary ---
Demographics + + + | Address | [address] | | | [place] [address] | + + + | Home Phone [...] | [address] | [place] [address] | | | | | [place] | [phone] | | | | | [address] | | | | | | [phone] | | | +--------+ + + + [...] W | | | | | | [place], | | | | | | [place] [address] | | | | | | [phone] | | | | | | | | +--------+ + + + + | 05/01/ | Procedure | Cardiology | | | | 2019 | visit | | | | +--------+ + + + + | 05/01/ | Office | Cardiology | Silvia, | | | 2019 | Visit | | PARISA Vernon W | | | | | | [place], | | | | | | [place] [address] | | | | | | [phone] | | | | | | | | +--------+ + + + + | 05/21/ | Implant | Cardiology | Daljit Singletary, | Remote Device | 2019 | Monitor | | MD Sim [place] | Interrogation | | | | | [place], | (Primary Dx); | | | | | [place] [address] | Pacemaker; | | | | | [phone] | Sinoatrial node | | | | | | dysfunction (HCC) | | | | | | with symptomatic | | | | | | bradycardia | +--------+ + + + + documented as of this encounter Visit Diagnoses Not on filedocumented in this encounter"
--- OUTSIDE RECORDS SUMMARY | ~2020-04-13 | XMS | Encounter Summary ---
Demographics + + + | Address | [address] | | | [place] [address] | + + + | Home Phone [...] Team Providers + +------+ + | Care Dynamometer Mechanic Name | Role | Phone | [...] + | 06/24/ | Telephone | [facility] | Daljit Singletary, | Lab Order | | 2017 | | CARDIOLOGY [address] | MD [address] | | | | | [place], | [place], | | | | | [place] [address] | [place] [address] | | | | | [phone] | [phone] | | | | | | | [...] | | | | | | [place] [address] | | | | | | [phone] | | | | | | | | +--------+ + + + + | 05/01/ | Procedure | Cardiology | | | | 2019 | visit | | | | +--------+ + + + + | 05/01/ | Office | Cardiology | Silvia, | | | 2019 | Visit | | PARISA Vernon [address] | | | | | | [place], | | | | | | [place] [address] | | | | | | [phone] | | | | | | | | +--------+ + + + + | 05/21/ | Implant | Cardiology | aDljit Singletary, | Remote Device | | 2019 | Monitor | | MD [address] | Interrogation | | | | | [place], | (Primary Dx); | | | | | [place] [address] | Pacemaker; | | | | | [phone] | Sinoatrial node | | | | [...] 06/24/2018, Expires: | | | | | ekuk coronary | 06/24/2019 | | | | | artery of ekuk | | | | | | heart without angina | | | | | | pectoris | | | | | | Hyperlipidemia, | | | | | | mixed | | + +------+--------+ + + documented as of this encounter Visit Diagnoses + + | Diagnosis | + + | Coronary artery disease involving ekuk coronary artery of ekuk heart without | | angina pectoris - Primary | + + | Hyperlipidemia, mixed Mixed hyperlipidemia | + + documented in this encounter"
--- OUTSIDE RECORDS SUMMARY | ~2020-04-13 | XMS | Encounter Summary ---
Demographics + + + | Address | [address] | | | [place] [address] | + + + | Home Phone [...] Providers + +------+ + | Care Machine Filler Shredder Name | Role | Phone | + [...] | | | | exertion | | [address] [place] | | | | | Chest pain | | [place], [place] | | | | | on exertion | | [address] | | | | | | | Phone: | | | | | | | [phone] | | | | | | | Fax: | | | | | | | [phone] | +--------+--------+ + + + + Encounter Details +--------+ + + + + | Date | Type | Department | Care Team | Description | +--------+ + + + + | 04/27/ | [facility] Martell Hart | Chest pain on | | 2014 - | | [facility] | Sanjay Palacios MD | exertion (Primary | | | | [address] [place] | [address] | Dx); Dyspnea on | | 03/20/ | | [place] [address] | [place] | exertion; Essential | | 2014 | | [phone] | [address] | hypertension; Acute | | | | | | chest pain; | | | | | Par[place] K[place], | Dizziness, | | | | | [address] | nonspecific; Mixed | | | | | [place] | anxiety depressive | | | | | [address] | disorder; PUD | | | | | [phone] | (peptic ulcer | | | | [...] different f rom the original. [facility] DISCHARGE SUMMARY Pt. Name/Age/: Moe Sanchez [...] 911 aka: NITROSTAT ONE TOUCH DELICA LANCETS [facility] Check glucose as needed for hypoglycemia OSTEO [...] Daily. to reduce urinary frequency - Lot #[id number], exp 07/2016 aka: RAPAFLO UNCODED MEDICATION - [...] hospital follow up Contact information: [address] [address] Call PARISA Russell. Specialty: Nurse Practitioner Why: As needed Contact information: [address] [place] [address] Condition: Patient being discharged with condition improved. Diet: Heart healthy, avoid acidic drinks and foods, spicy foods, too much coffee. Greater than 30 minutes were spent on discharge and coordination of post-hospital care. Electronically signed by: Thierry Fregoso DO, 03/20/2015 11:22 [facility] Portions of this chart may have been created with [employer] voice recognition software. Occasi onal wrong-word [...] afford the prescribed medication, you can try johy-sik-tfvipcb acid blockers, such as Pepcid AC, Tagamet, [...] or as directed by your healthcare provider [phone] [employer]. [address] [place] [address]. All righ ts reserved. This information is [...] + + + +---------+ + + | [place]-3 Fatty | CAPS, one capsule by | [...] | | | | | | | #[id number], exp 07/2016 | | | | | [...] 03/19/2015 10:09 PM PDT . [facility] PROGRESS NOTE Patient: Moe Sanchez : 1960: Age: 55 y.o. MedRec: [id number] PCP: Kirk French Admission date: 03/18/2015 Hospital [...] 1,000 mg 1,000 mg Oral Q4H PRN aPrth Butts ch, MD clonazePAM (klonoPIN) tablet 0.5 [...] 1708 03/18/15 1528 TROPONINI <0.01 <0.01 0.01 [facility] ECHOCARDIOGRAM REPORT STUDY DATE: 03/19/2015 [...] changes. No results for input(s): PHART, PO2ART, LLW2SFA, WOX9TON, BEART, G0GKWPWE in the last 168 h ours. No results for input(s): SPECSOURCE, PHPOCB, HCO3, TCO2, BEART, BE, XDDA9LYA in the last 16 8 hours. Invalid input(s): CWSBV9AL, GHFE6FK Point of care glucose: No results for [...] minutes today. Thierry Fregoso DO 03/19/2015 22:09 [facility] Portions of this chart may have been created with [employer] voice recognition software. Occasi onal wrong-word or sound-alike substitutions may have occurred due to the inherent granger itations of voice recognition software. Please read the chart carefully and recognize, using context, where these substitutions have occurred Belén Cho RN - 03/19/2015 11:03 AM [id number] Report given to Marlen morejon who is [...] | | | | | | [address] [place], | | | | | | [place] [address] | | | | | | [phone] | | | | | | | | +--------+ + + + + | 05/01/ | Procedure | Cardiology | | | | 2019 | visit | | | | +--------+ + + + + | 05/01/ | Office | Cardiology | Silvia, | | | 2019 | Visit | | PARISA Vernon [address] | | | | | | [place], | | | | | | [place] [address] | | | | | | [phone] | | | | | | | | +--------+ + + + + | 05/21/ | Implant | Cardiology | Daljit Singletary, | Remote Device | | 2020 | Monitor | | MD [address] [facility] | Interrogation | | | | | [place], | (Primary Dx); | | | | | [place] [address] | Pacemaker; | | | | | [phone] | Sinoatrial node | | | | [...] Performed At | + + + | [facility] ECHOCARDIOGRAM REPORT | | | [...] | | Signed by: Daljit Singletary MD [facility] 03/19/2015 15:44 | | | Serials Librarian: Dewey Valdez RDMS | | + + [...] | | | | | | [employer] | | | | | [...] [address] | [place] | [phone] | | [facility] | | [address] | | | - LABORATORY | | [...] | | MEDICAL | | | | mL/min/1.04a1Ipqv than | | CENTER - | | [...] | [address] | [place], [place] | [phone] | | [facility] | | [address] | | | - LABORATORY | | [...] [address] | [place] | [phone] | | [facility] | | [address] | | | - LABORATORY | | [...] | | | | | | [employer] | | | | | [...] | Performing | Address | City/State[facility] | Phone Number | | Organization | | | | + + + + + | [facility] | [address] | [place] | [phone] | | [facility] | | [address] | | | - LABORATORY | | [...] | [address] | [place] | [phone] | | [facility] | | [address] | | | - LABORATORY | | [...] + | [facility] | [address] | [place] | [phone] | | [facility] | | [address] | | | - LABORATORY | | [...] [address] | [place] | [phone] | | [facility] | | [address] | | | - LABORATORY | | [...] ST. | [address] | [place], [place] | [phone] | | [facility] | | [address] | | | - LABORATORY | | [...] | | | | | | [employer] | | | | | [...] [address] | [place] | [phone] | | [facility] | | [address] | | | - LABORATORY | | [...] + | [facility] | [address] | [place], [place] | [phone] | | [facility] | | [address] | | | - LABORATORY | | [...] | | MEDICAL | | | | mL/min/1.56s6Fsdo than | | CENTER - | | [...] | [address] | [place] | [phone] | | [facility] | | [address] | | | - LABORATORY | | [...] [address] | [place] | [phone] | | [facility] | | [address] | | | - LABORATORY | | [...]
--- OUTSIDE RECORDS SUMMARY | ~2020-04-13 | XMS | Encounter Summary ---
Demographics + + + | Address | [address] | | | [place] [address] | + + + | Home Phone [...] Providers + +------+ + | Care Human Service Specialist Name | Role | Phone | + +------+ + PCP | Unavailable | + +------+ + Encounter Details +--------+ + + + + | Date | Type | Department | Care Team | Description | +--------+ + + + + | 01/27/ | [facility] | [facility] | Jonathan, | | | 2008 | Encounter | MED CTR EMERGENCY | Martell Cr MD [address] | | | | | CENTER [address] | [place] | | | | | [place] | [place] [address] | | | | | [address] | [phone] | | | | | [phone] | | | +--------+ + + + [...] | | | | | | [place] [address] | | | | | | [phone] | | | | | | | [...] | | | | | | [place] [address] | | | | | | [phone] | | | | | | | | +--------+ + + + + | 05/21/ | Implant | Cardiology | Daljit Singletary, | Remote Device | 2019 | Monitor | | MD [address] [place] | Interrogation | | | | | [place], | (Primary Dx); | | | | | [place] [address] | Pacemaker; | | | | | [phone] | Sinoatrial node | | | | | | dysfunction (HCC) | | | | | | with symptomatic | | | | | | bradycardia | +--------+ + + + + documented as of this encounter Visit Diagnoses Not on filedocumented in this encounter"
--- OUTSIDE RECORDS SUMMARY | ~2020-04-13 | XMS | Encounter Summary ---
Demographics + + + | Address | [address] | | | [place] [address] | + + + | Home Phone [...] Team Providers + +------+ + | Care Infant Toddler Lead Teacher Name | Role | Phone | [...] | 10/09/ | Telephone | [facility] | Michael Amanda, | Other | | 2012 | | [facility] [place] | DO [address] | | | | | [address] | [place] | | | | | [place] | [address] | | | | | [address] | | | | | | [phone] | | | +--------+ + + + [...] W | | | | | | [place], | | | | | | [place] [address] | | | | | | [phone] | | | | | | | | +--------+ + + + + | 05/01/ | Procedure | Cardiology | | | | 2019 | visit | | | | +--------+ + + + + | 05/01/ | Office | Cardiology | Silvia, | | | 2019 | Visit | | [address]ISA [address] | | | | | | [place], | | | | | | [place] [address] | | | | | | [phone] | | | | | | | | +--------+ + + + + | 05/21/ | Implant | Cardiology | Daljit Singletary, | Remote Device | 2019 | Monitor | | MD [facility] [place] | Interrogation | | | | | [place], | (Primary Dx); | | | | | [place] [address] | Pacemaker; | | | | | [phone] | Sinoatrial node | | | | | | dysfunction (HCC) | | | | | | with symptomatic | | | | | | bradycardia | +--------+ + + + + documented as of this encounter Visit Diagnoses Not on filedocumented in this encounter"
--- OUTSIDE RECORDS SUMMARY | ~2020-04-13 | XMS | Encounter Summary ---
Demographics + + + | Address | [address] | | | [place] [address] | + + + | Home Phone [...] Providers + +------+ + | Care Manager Credit Name | Role | Phone | + +------+ + | Michael Amanda DO | PCP | | + +------+ + Encounter Details +--------+ + + + + | Date | Type | Department | Care Team | Description | +--------+ + + + + | 09/22/ | Hospital | [facility] | Bahman Gant MD | | | 2012 | Encounter | MED CTR XRAY [address] | [address] [place] | | | | | [place] | [address] [place], | | | | | [place] [address] | [place] [address] | | | | | [phone] | [phone] | | | | | | | [...] + + +---------+ + + | [place]-3 Fatty | CAPS, one capsule by | [...] | | | | | | [place] [address] | | | | | | [phone] | | | | | | | | +--------+ + + + + | 05/01/ | Procedure | Cardiology | | | | 2019 | visit | | | | +--------+ + + + + | 05/01/ | Office | Cardiology | Silvia, | | | 2019 | Visit | | PARISA Vernon [address] | | | | | | [place], | | | | | | [place] [address] | | | | | | [phone] | | | | | | | | +--------+ + + + + | 05/21/ | Implant | Cardiology | Daljit Singletary, | Remote Device | 2019 | Monitor | | [facility] | Interrogation | | | | | [place], | (Primary Dx); | | | | | [place] [address] | Pacemaker; | | | | | [phone] | Sinoatrial node | | | | | | dysfunction (HCC) | | | | | | with symptomatic | | | | | | bradycardia | +--------+ + + + + documented as of this encounter Visit Diagnoses Not on filedocumented in this encounter"
--- OUTSIDE RECORDS SUMMARY | ~2020-04-13 | XMS | Encounter Summary ---
Demographics + + + | Address | [address] | | | [place] [address] | + + + | Home Phone [...] + + | 01/21/ | Anesthesia | [facility] | Jarett Barakat | | | 2020 | Event | MED CTR MP INTRA OP | P, MD [address] | | | | | [address] | [place], [place] | | | | | [place], [place] | [address] | | | | | [address] | [phone] | | | | | [phone] | | | +--------+ + + + [...] | | | | | | [place] [address] | | | | | | [phone] | | | | | | | | +--------+ + + + + | 05/01/ | Procedure | Cardiology | | | | 2019 | visit | | | | +--------+ + + + + | 05/01/ | Office | Cardiology | Silvia, | | | 2019 | Visit | | [address] | | | | | | [place], | | | | | | [place] [address] | | | | | | [phone] | | | | | | | | +--------+ + + + + | 05/21/ | Implant | Cardiology | Daljit Singletary, | Remote Device | | 2019 | Monitor | | MD Sim [facility] | Interrogation | | | | | [place], | (Primary Dx); | | | | | [place] [address] | Pacemaker; | | | | | [phone] | Sinoatrial node | | | | | | dysfunction (HCC) | | | | | | with symptomatic | | | | | | bradycardia | +--------+ + + + + documented as of this encounter Visit Diagnoses Not on filedocumented in this encounter"
--- OUTSIDE RECORDS SUMMARY | ~2020-04-13 | XMS | Encounter Summary ---
Demographics + + + | Address | [address] | | | [place] [address] | + + + | Home Phone [...] Providers + +------+ + | Care Picture Booker Name | Role | Phone | + +------+ + | Kirk French MD | PCP | | + +------+ + Encounter Details +--------+ + + + + | Date | Type | Department | Care Team | Description | +--------+ + + + + | 10/25/ | Hospital | [facility] | Kirk French | Aneurysm (HCC) | | 2017 | Encounter | MED CTR ULTRASOUND | D, MD [address] | | | | | [address] [place] | [address] | | | | | [place], [place] | [place] [address] | | | | | [address] | [phone] | | | | | [phone] | | | | | | | [...] | | | | | | [place] [address] | | | | | | [phone] | | | | | | | [...] | | | | | | [place] [address] | | | | | | [phone] | | | | | | | | +--------+ + + + + | 05/21/ | Implant | Cardiology | Daljit Singletary, | Remote Device | | 2019 | Monitor | | [facility] | Interrogation | | | | | [place], | (Primary Dx); | | | | | [place] [address] | Pacemaker; | | | | | [phone] | Sinoatrial node | | | | [...]
--- OUTSIDE RECORDS SUMMARY | ~2020-04-13 | XMS | Encounter Summary ---
Demographics + + + | Address | [address] | | | [place] [address] | + + + | Home Phone [...] Providers + +------+ + | Care Paint Roller Covers Supervisor Name | Role | Phone | [...] [address] | | | | | | [place], [place] | (Fax) | | | | | [address] | | | | | | [phone] | | | +--------+ + + + [...] | | | | | | [place] [address] | | | | | | [phone] | | | | | | | | +--------+ + + + + | 05/01/ | Procedure | Cardiology | | | | 2019 | visit | | | | +--------+ + + + + | 05/01/ | Office | Cardiology | Silvia, | | | 2019 | Visit | | PARISA Vernon [address] | | | | | | [place], | | | | | | [place] [address] | | | | | | [phone] | | | | | | | | +--------+ + + + + | 05/21/ | Implant | Cardiology | Daljit Singletary, | Remote Device | | 2019 | Monitor | | [address] [place] | Interrogation | | | | | [place], | (Primary Dx); | | | | | [place] [address] | Pacemaker; | | | | | [phone] | Sinoatrial node | | | | | | dysfunction (HCC) | | | | | | with symptomatic | | | | | | bradycardia | +--------+ + + + + documented as of this encounter Visit Diagnoses Not on filedocumented in this encounter"
--- OUTSIDE RECORDS SUMMARY | ~2020-04-13 | XMS | Encounter Summary ---
Demographics + + + | Address | [address] | | | [place] [address] | + + + | Home Phone [...] + +------+ + | Care Raw Stock Drier Tender Name | Role | Phone [...] Refill | | 2014 | | [facility] | DO [address] | | | | | [address] | [place] | | | | | [place], [place] | [address] | | | | | [address] | | | | | | [phone] | | | +--------+--------+ + + + [...] | | | | | | [place], | | | | | | [place] [address] | | | | | | [phone] | | | | | | | | +--------+ + + + + | 05/01/ | Procedure | Cardiology | | | | 2019 | visit | | | | +--------+ + + + + | 05/01/ | Office | Cardiology | Silvia, | | | 2019 | Visit | | [address] | | | | | | [place], | | | | | | [place] [address] | | | | | | [phone] | | | | | | | | +--------+ + + + + | 05/21/ | Implant | Cardiology | Daljit Singletary, | Remote Device | | 2019 | Monitor | | [address] [place] | Interrogation | | | | | [place], | (Primary Dx); | | | | | [place] [address] | Pacemaker; | | | | | [phone] | Sinoatrial node | | | | | | dysfunction (HCC) | | | | | | with symptomatic | | | | | | bradycardia | +--------+ + + + + documented as of this encounter Visit Diagnoses Not on filedocumented in this encounter"
--- OUTSIDE RECORDS SUMMARY | ~2020-04-13 | XMS | Encounter Summary ---
Demographics + + + | Address | [address] | | | [place] [address] | + + + | Home Phone [...] Team Providers + +------+ + | Care Resaw Tailer Name | Role | Phone | + [...] | | CARDIOLOGY [address] | [address] | | | | | [place], | [place], | | | | | [place] [address] | [place] [address] | | | | | [phone] | [phone] | | | | | | | [...] | | | | | | [place] [address] | | | | | | [phone] | | | | | | | | +--------+ + + + + | 05/01/ | Procedure | Cardiology | | | | 2019 | visit | | | | +--------+ + + + + | 05/01/ | Office | Cardiology | Silvia, | | | 2019 | Visit | | [address] | | | | | | [place], | | | | | | [place] [address] | | | | | | [phone] | | | | | | | | +--------+ + + + + | 05/21/ | Implant | Cardiology | Daljit Singletary, | Remote Device | | 2019 | Monitor | | MD [address] [place] | Interrogation | | | | | [place], | (Primary Dx); | | | | | [place] [address] | Pacemaker; | | | | | [phone] | Sinoatrial node | | | | [...] [address] | [place] | [phone] | | [facility] | | [address] | | | - LABORATORY | | | | + + + + + | [address] | [address] | [place] | | | [facility] | | [address], [facility] | | | - LABORATORY [...] [address]ESSY [address] | | | | | [facility] | | | | | - LABORATORY | | | | + +---------+ + + documented in this encounter Visit Diagnoses Not on filedocumented in this encounter"
--- OUTSIDE RECORDS SUMMARY | ~2020-04-13 | XMS | Encounter Summary ---
Demographics + + + | Address | [address] | | | [place] [address] | + + + | Home Phone [...] Team Providers + +------+ + | Care Metallurgical Tester Name | Role | Phone | [...] | CARDIOLOGY [address] | [address] [place] | Interrogation | | | | [place], | [place], | (Primary Dx); | | | | [place] [address] | [place] [address] | Presence of | | | | [phone] | [phone] | permanent cardiac | | | | [...] | | | | | | [place] [address] | | | | | | [phone] | | | | | | | | +--------+ + + + + | 05/01/ | Procedure | Cardiology | | | | 2019 | visit | | | | +--------+ + + + + | 05/01/ | Office | Cardiology | Silvia, | | | 2019 | Visit | | PARISA Vernon [address] | | | | | | [place], | | | | | | [place] [address] | | | | | | [phone] | | | | | | | | +--------+ + + + + | 05/21/ | Implant | Cardiology | Daljit Singletary, | Remote Device | | 2019 | Monitor | | [address] [facility] | Interrogation | | | | | [place], | (Primary Dx); | | | | | [place] [address] | Pacemaker; | | | | | [phone] | Sinoatrial node | | | | [...] Paceart documentation and remote PDF scanned into Jobyal | | | for remote interrogation results. [...]
--- OUTSIDE RECORDS SUMMARY | ~2020-04-13 | XMS | Encounter Summary ---
Demographics + + + | Address | [address] | | | [place] [address] | + + + | Home Phone [...] Providers + +------+ + | Care Granulating Machine Operator Name | Role | Phone [...] + | 10/23/ | Office | [facility] | [place]via, | CAD (coronary artery | | 2013 | Visit | CARDIOLOGY [address] | [address] [place] [address] | disease) (Primary | | | | [place], | [place], | Dx); Other chest | | | | [place] [address] | [place] [address] | pain; Chest pain; | | | | [phone] | [phone] | Coronary artery | | | | [...] Sanchez Date: October 23, 2014 : 1960 Seam Stay Stitcher: Kailey Pruitt RN Device Mobile Web Application Developer: Cignifi Sense (mV) Impedance (?) Capture (V) Capture (ms) A Lead 2.80-4.00 407 1.500 0.09 RV Lead 22.40-31.36 519 2.000 0.09 LV Lead Battery Impedance (?): 658 Battery Voltage (V): 2.79 WV Interval (ms): 155 AR Interval (ms): 240 VA Conduction: Mode Switch Events: 1 % of time: <0.1 -B2B ACCOUNT EXECUTIVE: <0.1% AP-B2B ACCOUNT EXECUTIVE: <0.1% -VS: 13.8% AP-VS: 86.1% B2B ACCOUNT EXECUTIVE: Magnetic Rate: 85 LINDA: 65 LEAH: Current [...] Kailey Pruitt RN 10/23/2014 15:22 ames Janeen, TRANSMISSION SPECIALIST - 10/23/2014 2:22 PM PST PATIENT NAME: [...] needed for Chest pain. 25 tablet 12 [place]-3 Fatty Acids (SALMON OIL-1000 PO) CAPS, one capsule by mouth daily twice daily ONE TOUCH DELICA LANCETS [facility] Check glucose as needed [...] completely be ruled out. [facility] 12/25/13, shows non critical coronary [...] He is i n class I-II of [employer] functional class. There are no [...] to go back in 3 days to [place] for an attempt of ablation under general [...] dizziness. He is in class I-II of [employer] [employer] functional class. There are n [...] this chart may have been created with [employer] voice recognition software. Occasi onal wrong-word [...] W | | | | | | [place], | | | | | | [place] [address] | | | | | | [phone] | | | | | | | | +--------+ + + + + | 05/01/ | Procedure | Cardiology | | | | 2019 | visit | | | | +--------+ + + + + | 05/01/ | Office | Cardiology | Silvia, | | | 2019 | Visit | | PARISA Vernon [address] | | | | | | [place], | | | | | | [place] [address] | | | | | | [phone] | | | | | | | | +--------+ + + + + | 05/21/ | Implant | Cardiology | Daljit Singletary, | Remote Device | | 2019 | Monitor | | [address] [place] | Interrogation | | | | | [place], | (Primary Dx); | | | | | [place] [address] | Pacemaker; | | | | | [phone] | Sinoatrial node | | | | [...] 23, 2014 : | | | 1960 Seam Stay Stitcher: Kailey Pruitt RN Device Mobile Web Application Developer: | | | Above All Softwaretronic Sense (mV) Impedance (?) Capture (V) Capture (ms) A | | | Lead 2.80-4.00 407 1.500 0.09 RV Lead 22.40-31.36 519 2.000 0.09 | | | LV Lead Battery Impedance (?): 658 Battery Voltage (V): 2.79 | | | WV Interval (ms): 155 AR Interval (ms): 240 VA Conduction: Mode | | | Switch Events: 1 % of time: <0.1 -B2B ACCOUNT EXECUTIVE: <0.1% AP-B2B ACCOUNT EXECUTIVE: <0.1% -VS: | | | 13.8% AP-VS: 86.1% B2B ACCOUNT EXECUTIVE: Magnetic Rate: 85 LINDA: 65 LEAH: Current [...] sooner with concerns. Electronically signed by: Kailey Molnia | | Shanique Pruitt RN 10/23/2014 15:22 | | + + + + + | Procedure Note | + + | Kailey Pruitt RN - 10/23/2014 3:23 PM PST Formatting of this note might be | | different from the original. DEVICE INTERROGATIONName: Moe Sanchez | | Date: October 23, 2014DOB: 1960 Seam Stay Stitcher: Kailey Pruitt RNDevice Mobile Web Application Developer: | | Medtronic Sense (mV) Impedance (?) Capture (V) Capture (ms) A Lead 2.80-4.00 407 1.500 | | 0.09 RV Lead 22.40-31.36 519 2.000 0.09 LV Lead Battery Impedance (?): 658 Battery | | Voltage (V): 2.79 WV Interval (ms): 155 AR Interval (ms): 240 VA Conduction: Mode | | Switch Events: 1 % of time: <0.1 -B2B ACCOUNT EXECUTIVE: <0.1% AP-B2B ACCOUNT EXECUTIVE: <0.1% -VS: 13.8% AP-VS: 86.1% B2B ACCOUNT EXECUTIVE: | | Magnetic Rate: 85 LINDA: 65 [...] of unspecified type | | of vessel, soboba or graft | + + | Other chest pain | + + | Chest pain Chest pain, unspecified | + + | Coronary artery disease Coronary atherosclerosis of unspecified type of vessel, | | soboba or graft | + + | Pacemaker [...]
--- OUTSIDE RECORDS SUMMARY | ~2020-04-13 | XMS | Encounter Summary ---
Demographics + + + | Address | [address] | | | [place] [address] | + + + | Home Phone [...] Providers + +------+ + | Care Law Firm Receptionist Name | Role | Phone | [...] visit | CARDIOLOGY [address] | [address] [place] | reprogramming/check | | | | [place], | [place], | DO NOT DELETE | | | | [place] [address] | [place] [address] | (Primary Dx); | | | | [phone] | [phone] | Sinoatrial node | | | | [...] | | | | | | [place] [address] | | | | | | [phone] | | | | | | | | +--------+ + + + + | 05/01/ | Procedure | Cardiology | | | | 2019 | visit | | | | +--------+ + + + + | 05/01/ | Office | Cardiology | Silvia | | | 2019 | Visit | | PARISA [place] [address] | | | | | | [place], | | | | | | [place] [address] | | | | | | [phone] | | | | | | | | +--------+ + + + + | 05/21/ | Implant | Cardiology | Daljit Singletary, | Remote Device | | 2019 | Monitor | | [address] [place] | Interrogation | | | | | [place], | (Primary Dx); | | | | | [place] [address] | Pacemaker; | | | | | [phone] | Sinoatrial node | | | | [...]
--- OUTSIDE RECORDS SUMMARY | ~2020-04-13 | XMS | Encounter Summary ---
Demographics + + + | Address | [address] | | | [place] [address] | + + + | Home Phone [...] + + | 12/24/ | Anesthesia | [facility] | Jarett Barakat | | | 2018 | Event | MED CTR MP INTRA OP | P, MD [address] | | | | | [address] | ST [place], [place] | | | | | [place], [place] | [address] | | | | | [address] | [phone] | | | | | [phone] | | | | | | | [place], | | | | | | [address] | | | | | | [place], [place] | | | | | | [address] | | | | | | | [...] 12/24/17 1435 by | | eral | [id number] catheter system; | Desmond Teresa RN | [...] | | | | | | [place] [address] | | | | | | [phone] | | | | | | | | +--------+ + + + + | 05/01/ | Procedure | Cardiology | | | | 2019 | visit | | | | +--------+ + + + + | 05/01/ | Office | Cardiology | [place]via | | | 2019 | Visit | | Janeen, GOLF COURSE MECHANIC [address] | | | | | | [place], | | | | | | [place] [address] | | | | | | [phone] | | | | | | | | +--------+ + + + + | 05/21/ | Implant | Cardiology | Daljit Singletary, | Remote Device | | 2020 | Monitor | | [address] [place] | Interrogation | | | | | [place], | (Primary Dx); | | | | | [place] [address] | Pacemaker; | | | | | [phone] | Sinoatrial node | | | | [...]
--- OUTSIDE RECORDS SUMMARY | ~2020-04-13 | XMS | Encounter Summary ---
Demographics + + + | Address | [address] | | | [place] [address] | + + + | Home Phone [...] + +------+ + | Care Molded Goods Spot Picker Name | Role | Phone | [...] [address] | | | | | [place], | [place], | | | | | [place] [address] | [place] [address] | | | | | [phone] | [phone] | | | | | | | [...] | | | | | | [place] [address] | | | | | | [phone] | | | | | | | | +--------+ + + + + | 05/01/ | Procedure | Cardiology | | | | 2019 | visit | | | | +--------+ + + + + | 05/01/ | Office | Cardiology | [place] | | | 2019 | Visit | | Janeen, CROSS COUNTRY COACH [address] | | | | | | [place], | | | | | | [place] [address] | | | | | | [phone] | | | | | | | | +--------+ + + + + | 05/21/ | Implant | Cardiology | Daljit Singletary, | Remote Device | | 2020 | Monitor | | MD [address] [place] | Interrogation | | | | | [place], | (Primary Dx); | | | | | [place] [address] | Pacemaker; | | | | | [phone] | Sinoatrial node | | | | | | dysfunction (HCC) | | | | | | with symptomatic | | | | | | bradycardia | +--------+ + + + + documented as of this encounter Visit Diagnoses Not on filedocumented in this encounter"
--- OUTSIDE RECORDS SUMMARY | ~2020-04-13 | XMS | Encounter Summary ---
Demographics + + + | Address | [address] | | | [place] [address] | + + + | Home Phone [...] Providers + +------+ + | Care Seed Sorter Name | Role | Phone | [...] 2019 | | GASTROENTEROLOGY | [address] [place] | | | | | [address] [place] | [address] [place], [place] | | | | | [address] [place], [place] | [address] | | | | | [address] | | | | | | [phone] | | | +--------+ + + + [...] | | | | | | [place] [address] | | | | | | [phone] | | | | | | | | +--------+ + + + + | 05/01/ | Procedure | Cardiology | | | | 2020 | visit | | | | +--------+ + + + + | 06/10/ | Office | Cardiology | Silvia, | | | 2019 | Visit | | [address] | | | | | | [place], | | | | | | [place] [address] | | | | | | [phone] | | | | | | | | +--------+ + + + + | 05/21/ | Implant | Cardiology | Daljit Singletary, | Remote Device | 2019 | Monitor | | [address] | Interrogation | | | | | [place], | (Primary Dx); | | | | | [place] [address] | Pacemaker; | | | | | [phone] | Sinoatrial node | | | | | | dysfunction (HCC) | | | | | | with symptomatic | | | | | | bradycardia | +--------+ + + + + documented as of this encounter Visit Diagnoses Not on filedocumented in this encounter"
--- OUTSIDE RECORDS SUMMARY | ~2020-04-13 | XMS | Encounter Summary ---
Demographics + + + | Address | [address] | | | [place] [address] | + + + | Home Phone [...] Team Providers + +------+ + | Care Filer Finish Name | Role | Phone | + [...] + | 09/09/ | Office | [facility] | Michael Amanda, | Hyperlipidemia; | | 2011 | Visit | [facility] [place] | DO [address] | Hypertension; | | | | [address] | [place] | Chronic pain | | | | [place] | [address] | syndrome; Neck pain, | | | | [address] | | chronic | | | | [phone] | | | +--------+---------+ + + + [...] damage history No ASHD (either angina; prior LA; prior CABG) No cardiac end organ damage [...] slowly cutting back. Pt was going through [facility] for [facility]iate medications prior to [...] | | | | | | [place] [address] | | | | | | [phone] | | | | | | | [...] | | | | | | [place] [address] | | | | | | [phone] | | | | | | | | +--------+ + + + + | 05/21/ | Implant | Cardiology | Daljit Singletary, | Remote Device | 2019 | Monitor | | [address] [place] | Interrogation | | | | | [place], | (Primary Dx); | | | | | [place] [address] | Pacemaker; | | | | | [phone] | Sinoatrial node | | | | [...]
--- OUTSIDE RECORDS SUMMARY | ~2020-04-13 | XMS | Encounter Summary ---
Demographics + + + | Address | [address] | | | [place] [address] | + + + | Home Phone [...] + +------+ + | Care Facilities Maintenance Supervisor Name | Role | Phone | + +------+ + PCP | Unavailable | + +------+ + Encounter Details +--------+ + + + + | Date | Type | Department | Care Team | Description | +--------+ + + + + | 10/09/ | [facility] | Jonathan, | | | 2008 | Encounter | MED CTR EMERGENCY | Martell Cr MD [address] | | | | | CENTER [address] | [place] | | | | | [place] | [place] [address] | | | | | [address] | [phone] | | | | | [phone] | | | +--------+ + + + [...] W | | | | | | [place], | | | | | | [place] [address] | | | | | | [phone] | | | | | | | | +--------+ + + + + | 05/01/ | Procedure | Cardiology | | | | 2019 | visit | | | | +--------+ + + + + | 05/01/ | Office | Cardiology | [place]via | | | 2019 | Visit | | PARISA [place] [address] | | | | | | [place], | | | | | | [place] [address] | | | | | | [phone] | | | | | | | | +--------+ + + + + | 05/21/ | Implant | Cardiology | Daljit Singletary, | Remote Device | 2019 | Monitor | | MD [address] [place] | Interrogation | | | | | [place], | (Primary Dx); | | | | | [place] [address] | Pacemaker; | | | | | [phone] | Sinoatrial node | | | | | | dysfunction (HCC) | | | | | | with symptomatic | | | | | | bradycardia | +--------+ + + + + documented as of this encounter Visit Diagnoses Not on filedocumented in this encounter"
--- OUTSIDE RECORDS SUMMARY | ~2020-04-13 | XMS | Encounter Summary ---
Demographics + + + | Address | [address] | | | [place] [address] | + + + | Home Phone [...] Providers + +------+ + | Care Tool Procurement Coordinator Name | Role | Phone | [...] W | DISCLOSURE) | | | | [place], | [place], | | | | | [place] [address] | [place] [address] | | | | | [phone] | [phone] | | | | | | | [...] | | | | | | [place] [address] | | | | | | [phone] | | | | | | | [...] | | | | | | [place] [address] | | | | | | [phone] | | | | | | | | +--------+ + + + + | 05/21/ | Implant | Cardiology | Daljit Singletary, | Remote Device | | 2019 | Monitor | | [facility] | Interrogation | | | | | [place], | (Primary Dx); | | | | | [place] [address] | Pacemaker; | | | | | [phone] | Sinoatrial node | | | | | | dysfunction (HCC) | | | | | | with symptomatic | | | | | | bradycardia | +--------+ + + + + documented as of this encounter Visit Diagnoses Not on filedocumented in this encounter"
--- OUTSIDE RECORDS SUMMARY | ~2020-04-13 | XMS | Encounter Summary ---
Demographics + + + | Address | [address] | | | [place] [address] | + + + | Home Phone [...] Team Providers + +------+ + | Care Soil Checker Name | Role | Phone | [...] [address] | | | | | [place], | [place], | | | | | [place] [address] | [place] [address] | | | | | [phone] | [phone] | | | | | | | [...] | | | | | | [place] [address] | | | | | | [phone] | | | | | | | | +--------+ + + + + | 05/01/ | Procedure | Cardiology | | | | 2019 | visit | | | | +--------+ + + + + | 05/01/ | Office | Cardiology | [place], | | | 2019 | Visit | | PARISA [place] [address] | | | | | | [place], | | | | | | [place] [address] | | | | | | [phone] | | | | | | | | +--------+ + + + + | 05/21/ | Implant | Cardiology | Daljit Singletary, | Remote Device | 2019 | Monitor | | [address] [place] | Interrogation | | | | | [place], | (Primary Dx); | | | | | [place] [address] | Pacemaker; | | | | | [phone] | Sinoatrial node | | | | [...] | [address] | [place] | | | [facility] | | [address] | | | - LABORATORY [...] | | | LAB | | | Cook Islander, | | | | | | External [...] | [address] | [place] | | | [facility] | | [address] | | | - LABORATORY [...]
--- OUTSIDE RECORDS SUMMARY | ~2020-04-13 | XMS | Encounter Summary ---
Demographics + + + | Address | [address] | | | [place] [address] | + + + | Home Phone [...] Team Providers + +------+ + | Care Stripper Black And White Name | Role | Phone | + [...] | Telephone | [facility] [place] | [place], | LABS | | 2019 | | CARDIOLOGY [address] | Janeen WHITE SUGAR BOILER [address] | | | | | [place], | [place], | | | | | [place] [address] | [place] [address] | | | | | [phone] | [phone] | | | | | | | [...] | | | | | | [place] [address] | | | | | | [phone] | | | | | | | | +--------+ + + + + | 05/01/ | Procedure | Cardiology | | | | 2020 | visit | | | | +--------+ + + + + | 05/01/ | Office | Cardiology | [place], | | | 2019 | Visit | | PARISA Vernon W | | | | | | [place], | | | | | | [place] [address] | | | | | | [phone] | | | | | | | | +--------+ + + + + | 05/21/ | Implant | Cardiology | Daljit Singletary, | Remote Device | | 2019 | Monitor | | [address] [place] | Interrogation | | | | | [place], | (Primary Dx); | | | | | [place] [address] | Pacemaker; | | | | | [phone] | Sinoatrial node | | | | [...]
--- OUTSIDE RECORDS SUMMARY | ~2020-04-13 | XMS | Encounter Summary ---
Demographics + + + | Address | [address] | | | [place] [address] | + + + | Home Phone [...] Team Providers + +------+ + | Care Tilt Tray Driver Name | Role | Phone | [...] | | | | CENTER [address] [place] | [place], [place] | insufficiency | | | | [place], [place] | [address] | | | | | [address] | | | | | | [phone] | | | +--------+ + + + [...] sent through Care Everywhere.PERIPHERAL KENYETTA A, BILATERAL (THAI)documented in this encounter Medications at Time of [...] + + +---------+ + + | [place]-3 Fatty | CAPS, one capsule by | [...] | | | | | | | #[id number], exp 07/2016 | | | | | [...] | | | | | | [place] [address] | | | | | | [phone] | | | | | | | | +--------+ + + + + | 05/01/ | Procedure | Cardiology | | | | 2019 | visit | | | | +--------+ + + + + | 05/01/ | Office | Cardiology | [place], | | | 2019 | Visit | | PARISA [place] [address] | | | | | | [place], | | | | | | [place] [address] | | | | | | [phone] | | | | | | | | +--------+ + + + + | 05/21/ | Implant | Cardiology | Daljit Singletary, | Remote Device | | 2019 | Monitor | | [address] [place] | Interrogation | | | | | [place], | (Primary Dx); | | | | | [place] [address] | Pacemaker; | | | | | [phone] | Sinoatrial node | | | | [...]
--- OUTSIDE RECORDS SUMMARY | ~2020-04-13 | XMS | Encounter Summary ---
Demographics + + + | Address | [address] | | | [place] [address] | + + + | Home Phone [...] Team Providers + +------+ + | Care Patternmaker Metal Bench Name | Role | Phone | + +------+ + PCP | Unavailable | + +------+ + Encounter Details +--------+ + + + + | Date | Type | Department | Care Team | Description | +--------+ + + + + | 06/14/ | [facility] | [facility] | Kennethshaistatesha Shaistakenneth, | | | 2008 - | Encounter | MED CTR MP INTRA OP | [address] | | | | | [address] | [address] [place], | | | 06/15/ | | [place] | [place] [address] | | | 2008 | | [address] | [phone] | | | | | [phone] | | | +--------+ + + + [...] W | | | | | | [place], | | | | | | [place] [address] | | | | | | [phone] | | | | | | | | +--------+ + + + + | 05/01/ | Procedure | Cardiology | | | | 2019 | visit | | | | +--------+ + + + + | 05/01/ | Office | Cardiology | [place], | | | 2019 | Visit | | PARISA Vernon W | | | | | | [place], | | | | | | [place] [address] | | | | | | [phone] | | | | | | | | +--------+ + + + + | 05/21/ | Implant | Cardiology | Daljit Singletary, | Remote Device | | 2019 | Monitor | | MD [address] [place] | Interrogation | | | | | [place], | (Primary Dx); | | | | | [place] [address] | Pacemaker; | | | | | [phone] | Sinoatrial node | | | | | | dysfunction (HCC) | | | | | | with symptomatic | | | | | | bradycardia | +--------+ + + + + documented as of this encounter Visit Diagnoses Not on filedocumented in this encounter"
--- OUTSIDE RECORDS SUMMARY | ~2020-04-13 | XMS | Encounter Summary ---
Demographics + + + | Address | [address] | | | [place] [address] | + + + | Home Phone [...] Team Providers + +------+ + | Care Preanalytics Team Lead Name | Role | Phone [...] | type | [address] | [address] | | | | | Procedures | ST [place] | [place], | | | | | FUP | [place], [place] | [place] [address] | | | | | | [address] | Phone: | | | | | | Phone: | [phone] | | | | | | [phone] | Fax: | | | | | | Fax: | [phone] | | | | | | [phone] | | +--------+ + + + + [...] | | | | CENTER [address] | [address] [place] | (Primary Dx) | | | | [place], [place] | [place] [address] | | | | | [address] | [phone] | | | | | [phone] | | | +--------+ + + + [...] cannot be sent through Care Everywhere.Angina, Stable (Georgian)documented in this encounter Medications at Time [...] + + + +---------+ + + | [place]-3 Fatty | CAPS, one capsule by | [...] | | | | | | [place] [address] | | | | | | [phone] | | | | | | | | +--------+ + + + + | 05/01/ | Procedure | Cardiology | | | | 2019 | visit | | | | +--------+ + + + + | 05/01/ | Office | Cardiology | [place] | | | 2019 | Visit | | [place] [address] | | | | | | [place], | | | | | | [place] [address] | | | | | | [phone] | | | | | | | | +--------+ + + + + | 05/21/ | Implant | Cardiology | Daljit Singletary, | Remote Device | 2019 | Monitor | | [address] | Interrogation | | | | | [place], | (Primary Dx); | | | | | [place] [address] | Pacemaker; | | | | | [phone] | Sinoatrial node | | | | [...] | | | | HIREN WINKLER, ANGELA ([id number]) | | | | | | on [...] | | | | | | [employer] | | | | | [...] + | Performing | Address | City[facility] | Phone Number | | Organization | | | | + + + + + | [facility] | [address] | [place] | [phone] | | [facility] | | [address] | | | - LABORATORY | | [...] + | [facility] | [address] | [place] | [phone] | | [facility] | | [address] | | | - LABORATORY | | [...] | | | | | | [employer] | | | | | [...] + | Performing | Address | City/State/[facility] | Phone Number | | Organization | | | | + + + + + | [facility] | [address] | [place] | [phone] | | [facility] | | [address] | | | - LABORATORY | | [...] | [address] Diego MICHELLE | | | MONTSERRATIAN | RATE,ESTIMATED | | MEDICAL | | | | mL/min/1.25g4Gzyf than | | CENTER - | | [...] [address] | [place] | [phone] | | [facility] | | [address] | | | - LABORATORY | | [...] [address] | [place] | [phone] | | [facility] | | [address] | | | - LABORATORY | | [...] | | | | ANGELA MARADIAGA MD ([id number]) | | | | | | on [...]
--- OUTSIDE RECORDS SUMMARY | ~2020-04-13 | XMS | Encounter Summary ---
Demographics + + + | Address | [address] | | | [place] [address] | + + + | Home Phone [...] Team Providers + +------+ + | Care Cleaner Name | Role | Phone | + +------+ + PCP | Unavailable | + +------+ + Encounter Details +--------+ + + + + | Date | Type | Department | Care Team | Description | +--------+ + + + + | 05/02/ | [facility] | [facility] | Jonathan, | | | 2009 | Encounter | MED CTR EMERGENCY | Martell Cr MD [address] | | | | | CENTER [address] [place] | [place] | | | | | [place] | [place] [address] | | | | | [address] | [phone] | | | | | [phone] | | | +--------+ + + + [...] W | | | | | | [place], | | | | | | [place] [address] | | | | | | [phone] | | | | | | | | +--------+ + + + + | 05/01/ | Procedure | Cardiology | | | | 2019 | visit | | | | +--------+ + + + + | 05/01/ | Office | Cardiology | [place] | | | 2019 | Visit | | PARISA [place] [address] | | | | | | [place], | | | | | | [place] [address] | | | | | | [phone] | | | | | | | | +--------+ + + + + | 05/21/ | Implant | Cardiology | Daljit Singletary, | Remote Device | 2019 | Monitor | | MD [address] [place] | Interrogation | | | | | [place], | (Primary Dx); | | | | | [place] [address] | Pacemaker; | | | | | [phone] | Sinoatrial node | | | | | | dysfunction (HCC) | | | | | | with symptomatic | | | | | | bradycardia | +--------+ + + + + documented as of this encounter Visit Diagnoses Not on filedocumented in this encounter"
--- OUTSIDE RECORDS SUMMARY | ~2020-04-13 | XMS | Encounter Summary ---
Demographics + + + | Address | [address] | | | [place] [address] | + + + | Home Phone [...] Team Providers + +------+ + | Care Chemic Mangler Name | Role | Phone | + [...] + + | 08/04/ | Telephone | [facility] | [place], | Other (4 week event | | 2017 | | CARDIOLOGY [address] | [place] [address] | monitor ) | | | | [place], | [place], | | | | | [place] [address] | [place] [address] | | | | | [phone] | [phone] | | | | | | | [...] | | | | | | [place] [address] | | | | | | [phone] | | | | | | | | +--------+ + + + + | 05/01/ | Procedure | Cardiology | | | | 2020 | visit | | | | +--------+ + + + + | 05/01/ | Office | Cardiology | [place], | | | 2019 | Visit | | [place]ISA [place] [address] | | | | | | [place], | | | | | | [place] [address] | | | | | | [phone] | | | | | | | | +--------+ + + + + | 05/21/ | Implant | Cardiology | Daljit Singletary, | Remote Device | 2019 | Monitor | | [address] | Interrogation | | | | | [place], | (Primary Dx); | | | | | [place] [address] | Pacemaker; | | | | | [phone] | Sinoatrial node | | | | | | dysfunction (HCC) | | | | | | with symptomatic | | | | | | bradycardia | +--------+ + + + + documented as of this encounter Visit Diagnoses Not on filedocumented in this encounter"
--- OUTSIDE RECORDS SUMMARY | ~2020-04-13 | XMS | Encounter Summary ---
Demographics + + + | Address | [address] | | | [place] [address] | + + + | Home Phone [...] Team Providers + +------+ + | Care Report Checker Name | Role | Phone [...] | | | CENTER [address] | [place], [place] | insufficiency | | | | [place] | [address] | | | | | [address] | | | | | | [phone] | | | +--------+ + + + [...] sent through Care Everywhere.PERIPHERAL KENYETTA A, BILATERAL (AMHARIC)documented in this encounter Medications at Time of [...] + + + +---------+ + + | [place]-3 Fatty | CAPS, one capsule by | [...] | | | | | | | #[id number], exp 07/2016 | | | | | [...] | | | | | | [place] [address] | | | | | | [phone] | | | | | | | | +--------+ + + + + | 05/01/ | Procedure | Cardiology | | | | 2019 | visit | | | | +--------+ + + + + | 05/01/ | Office | Cardiology | [place], | | | 2019 | Visit | | PARISA [place] [address] | | | | | | [place], | | | | | | [place] [address] | | | | | | [phone] | | | | | | | | +--------+ + + + + | 05/21/ | Implant | Cardiology | Daljit Singletary, | Remote Device | | 2019 | Monitor | | [address] [place] | Interrogation | | | | | [place], | (Primary Dx); | | | | | [place] [address] | Pacemaker; | | | | | [phone] | Sinoatrial node | | | | [...]
--- OUTSIDE RECORDS SUMMARY | ~2020-04-13 | XMS | Encounter Summary ---
Demographics + + + | Address | [address] | | | [place] [address] | + + + | Home Phone [...] Providers + +------+ + | Care Mill Operator Head Name | Role | Phone | + +------+ + PCP | Unavailable | + +------+ + Encounter Details +--------+ + + + + | Date | Type | Department | Care Team | Description | +--------+ + + + + | 06/23/ | [facility] | [facility] | Arthur Page MD | | | 2007 - | Encounter | MED CTR MED ONC | [address] [facility] | | | | | [address] [place] | [place] | | | 06/25/ | | [place] [address] | [address] | | | 2007 | | [phone] | | | +--------+ + + + [...] | | | | | | [place] [address] | | | | | | [phone] | | | | | | | [...] | | | | | | [place] [address] | | | | | | [phone] | | | | | | | | +--------+ + + + + | 05/21/ | Implant | Cardiology | Daljit Singletary, | Remote Device | 2019 | Monitor | | MD [address] [place] | Interrogation | | | | | [place], | (Primary Dx); | | | | | [place] [address] | Pacemaker; | | | | | [phone] | Sinoatrial node | | | | | | dysfunction (HCC) | | | | | | with symptomatic | | | | | | bradycardia | +--------+ + + + + documented as of this encounter Visit Diagnoses Not on filedocumented in this encounter"
--- OUTSIDE RECORDS SUMMARY | ~2020-04-13 | XMS | Encounter Summary ---
Demographics + + + | Address | [address] | | | [place] [address] | + + + | Home Phone [...] Providers + +------+ + | Care Predatory Animal Hunter Name | Role | Phone | + +------+ + PCP | Unavailable | + +------+ + Encounter Details +--------+ + + + + | Date | Type | Department | Care Team | Description | +--------+ + + + + | 10/26/ | Hospital | [facility] | | | | 1994 | Encounter | MED CTR EMERGENCY | | | | | | CENTER [address] | | | | | | [place] | | | | | | [address] | | | | | | [phone] | | | +--------+ + + + [...] | | | | | | [place] [address] | | | | | | [phone] | | | | | | | | +--------+ + + + + | 05/01/ | Procedure | Cardiology | | | | 2019 | visit | | | | +--------+ + + + + | 05/01/ | Office | Cardiology | [place], | | | 2019 | Visit | | PARISA [place] W | | | | | | [place], | | | | | | [place] [address] | | | | | | [phone] | | | | | | | | +--------+ + + + + | 05/21/ | Implant | Cardiology | Daljit Singletary, | Remote Device | 2019 | Monitor | | [address] [place] | Interrogation | | | | | [place], | (Primary Dx); | | | | | [place] [address] | Pacemaker; | | | | | [phone] | Sinoatrial node | | | | | | dysfunction (HCC) | | | | | | with symptomatic | | | | | | bradycardia | +--------+ + + + + documented as of this encounter Visit Diagnoses Not on filedocumented in this encounter"
--- OUTSIDE RECORDS SUMMARY | ~2020-04-13 | XMS | Encounter Summary ---
Demographics + + + | Address | [address] | | | [place] [address] | + + + | Home Phone [...] Team Providers + +------+ + | Care Insight Director Name | Role | Phone | + +------+ + PCP | Unavailable | + +------+ + Encounter Details +--------+ + + + + | Date | Type | Department | Care Team | Description | +--------+ + + + + | 08/17/ | [facility] | [facility] | Evan Gandara MD | | | 2005 | Encounter | MED CTR LABORATORY | [facility] | | | | | [address] | [place] | | | | | [place] | [address] | | | | | [address] | | | | | | [phone] | | | +--------+ + + + [...] | | | | | | [place], | | | | | | [place] [address] | | | | | | [phone] | | | | | | | | +--------+ + + + + | 05/01/ | Procedure | Cardiology | | | | 2019 | visit | | | | +--------+ + + + + | 05/01/ | Office | Cardiology | [place] | | | 2019 | Visit | | PARISA [place] W | | | | | | [place], | | | | | | [place] [address] | | | | | | [phone] | | | | | | | | +--------+ + + + + | 05/21/ | Implant | Cardiology | Daljit Singletary, | Remote Device | 2019 | Monitor | | MD [address] [place] | Interrogation | | | | | [place], | (Primary Dx); | | | | | [place] [address] | Pacemaker; | | | | | [phone] | Sinoatrial node | | | | | | dysfunction (HCC) | | | | | | with symptomatic | | | | | | bradycardia | +--------+ + + + + documented as of this encounter Visit Diagnoses Not on filedocumented in this encounter"
--- OUTSIDE RECORDS SUMMARY | ~2020-04-13 | XMS | Encounter Summary ---
Demographics + + + | Address | [address] | | | [place] [address] | + + + | Home Phone [...] Team Providers + +------+ + | Care Bale Sewer Name | Role | Phone | [...] CARDIOLOGY [address] | MD [address] | Dx); SINUS | | | | [place], | [place], | [place] | | | | [place] [address] | [place] [address] | | | | | [phone] | [phone] | | | | | | | [...] | | | | | | [place] [address] | | | | | | [phone] | | | | | | | | +--------+ + + + + | 05/01/ | Procedure | Cardiology | | | | 2019 | visit | | | | +--------+ + + + + | 05/01/ | Office | Cardiology | [place], | | | 2019 | Visit | | PARISA [place] W | | | | | | [place], | | | | | | [place] [address] | | | | | | [phone] | | | | | | | | +--------+ + + + + | 05/21/ | Implant | Cardiology | Daljit Singletary, | Remote Device | | 2019 | Monitor | | [address] [place] [place] | Interrogation | | | | | [place], | (Primary Dx); | | | | | [place] [address] | Pacemaker; | | | | | [phone] | Sinoatrial node | | | | [...]
--- OUTSIDE RECORDS SUMMARY | ~2020-04-13 | XMS | Encounter Summary ---
Demographics + + + | Address | [address] | | | [place] [address] | + + + | Home Phone [...] Team Providers + +------+ + | Care Policyholder Information Clerk Name | Role | Phone [...] 2019 | | GASTROENTEROLOGY | [address], [place] | | | | | [address] [place] | [address] [place], [place] | | | | | [address] [place], [place] | [address] | | | | | [address] | | | | | | [phone] | | | +--------+ + + + [...] | | | | | | [place] [address] | | | | | | [phone] | | | | | | | [...] | | | | | | [place] [address] | | | | | | [phone] | | | | | | | | +--------+ + + + + | 05/21/ | Implant | Cardiology | Daljit Singletary, | Remote Device | | 2019 | Monitor | | [address] [place] | Interrogation | | | | | [place], | (Primary Dx); | | | | | [place] [address] | Pacemaker; | | | | | [phone] | Sinoatrial node | | | | | | dysfunction ([facility]) | | | | | | with symptomatic | | | | | | bradycardia | +--------+ + + + + documented as of this encounter Visit Diagnoses Not on filedocumented in this encounter"
--- OUTSIDE RECORDS SUMMARY | ~2020-04-13 | XMS | Encounter Summary ---
Demographics + + + | Address | [address] | | | [place] [address] | + + + | Home Phone [...] Team Providers + +------+ + | Care Forest Fire Management Officer Name | Role | Phone | [...] [address] | | | | | [place], | [place], | | | | | [place] [address] | [place] [address] | | | | | [phone] | [phone] | | | | | | | [...] W | | | | | | [place], | | | | | | [place] [address] | | | | | | [phone] | | | | | | | | +--------+ + + + + | 05/01/ | Procedure | Cardiology | | | | 2019 | visit | | | | +--------+ + + + + | 05/01/ | Office | Cardiology | [place], | | | 2019 | Visit | | PARISA [place] W | | | | | | [place], | | | | | | [place] [address] | | | | | | [phone] | | | | | | | | +--------+ + + + + | 05/21/ | Implant | Cardiology | Daljit Singletary, | Remote Device | | 2019 | Monitor | | [address] [place] | Interrogation | | | | | [address] [place], | (Primary Dx); | | | | | [place] [address] | Pacemaker; | | | | | [phone] | Sinoatrial node | | | | | | dysfunction (HCC) | | | | | | with symptomatic | | | | | | bradycardia | +--------+ + + + + documented as of this encounter Visit Diagnoses Not on filedocumented in this encounter"
--- OUTSIDE RECORDS SUMMARY | ~2020-04-13 | XMS | Encounter Summary ---
Demographics + + + | Address | [address] | | | [place] [address] | + + + | Home Phone [...] Team Providers + +------+ + | Care Aquatics Lifeguard Name | Role | Phone | + +------+ + | Kirk French MD | PCP | | + +------+ + Encounter Details +--------+ + + + + | Date | Type | Department | Care Team | Description | +--------+ + + + + | [facility] | Emmanuel Daniel MD | Pain of upper | | 2018 | Encounter | MED CTR MP INTRA OP | [address], [place] | abdomen (Primary | | | | [address] | [address] [place], [place] | Dx); Functional | | | | [place] | [address] | diarrhea; Weight | | | | [address] | | loss | | | | [phone] | | | +--------+ + + + [...] + + + +---------+ + + | [place]-3 Fatty | CAPS, one capsule by | [...] [address] | | | | | | [address] [place], | | | | | | [place] [address] | | | | | | [phone] | | | | | | | | +--------+ + + + + | 05/01/ | Procedure | Cardiology | | | | 2019 | visit | | | | +--------+ + + + + | 05/01/ | Office | Cardiology | Silvia, | | | 2019 | Visit | | [address] | | | | | | [address] [place], | | | | | | [place] [address] | | | | | | [phone] | | | | | | | | +--------+ + + + + | 05/21/ | Implant | Cardiology | Daljit Singletary, | Remote Device | | 2019 | Monitor | | MD [address] [facility] | Interrogation | | | | | [place], | (Primary Dx); | | | | | [place] [address] | Pacemaker; | | | | | [phone] | Sinoatrial node | | | | [...] + | Performed at: 01 - [facility] [place] [address], | REFERENCE LAB | | [place], [place] [id number] Satellite Communications Engineer: William Andrew MD, Phone: | ARSH - KINA | | [phone] | | + + + + + + + + | Performing | Address | City/State/Zipcode | Phone Number | | Organization | | | | + + + + + | REFERENCE LAB | [address] | [place], [place] | [phone] | | ARSH - KINA | [facility] | [address] | | + + + + + Rigoberto Watson (12/24/2017 1:34 PM PST) + + + [...] + | [facility] | [address] | [place] | [phone] | | [facility] | | [address] | | | - LABORATORY | | [...] | | | Aeromonas, Plesiomonas, | | [facility] | | | | E. coli O157 or | | MEDICAL | | | | Yersinia isolated. | | CENTER - | | | | | | LABORATORY | | + + + + + + | Culture | 4+ Usual FloraComment: | | [facility] | | | | Consistent with usual | | [facility] | | | | enteric michelle. | [...] [address] | [place] | [phone] | | [facility] | | [address] | | | - LABORATORY | | [...] [address] | [place] | [phone] | | [facility] | | [address] | | | - LABORATORY | | [...] + | Performed at: 01 - [facility] [place] [address], | REFERENCE LAB | | [place], [place] [id number] Satellite Communications Engineer: William Andrew MD, Phone: | [facility] | | [phone] | | + + + + + + + + | Performing | Address | City/State/Zipcode | Phone Number | | Organization | | | | + + + + + | REFERENCE LAB | [address] | [place], [place] | [phone] | | [facility] | [facility] | [address] | | + + + + + Lactoferrin, Fecal, Qual (12/24/2017 1:34 PM PST) + + + + + + | Component | Value | Ref Range | Performed | Pathologist | | | | | At | Signature | + + + + + + | Lactoferrin | Negative | Negative | [facility] | | | , Qual | | | [facility] | | | | | | [...] [address] | [place] | [phone] | | [facility] | | [address] | | | - LABORATORY | | [...] + | [facility] | [address] | [place] | [phone] | | [facility] | | [address] | | | - LABORATORY | | [...] [address] | [place] | [phone] | | [facility] | | [address] | | | - LABORATORY | | [...] [address] | [place], [place] | [phone] | | [facility] | | [address] | | | - LABORATORY | | [...] + | [facility] | [address] | [place], [place] | [phone] | | [facility] | | [address] | | | - LABORATORY | | | | + + + + + EGD (12/24/2017 1:19 PM PST) + + | Specimen | + + | | + + + + -+ | Narrative | Performed At | + + -+ | | [facility] | | GastroenterologyPatient Name: Moe SanchezProcedpasha Date: 12/24/2017 | PROVATION | | 1:19 PMMRN: [id number] #: [id number] of : | | | 9Admit Type: AmbulatoryAge: 57Room: [facility] 01Gender: MaleNote | | | Status: FinalizedAttending MD: Emmanuel Daniel , MDProcedure: | | | Upper GI endoscopyIndications: Diarrhea, Weight | | | lossProviders: Emmanuel Daniel MD, Maria Isabel Morris RN, | | | Kim Hicks, Alumni Coordinator, [place] | | | Sapna Barakat MD (Anesthesia [...] the anesthesiologist and | | | the morgue technician in the endoscopy suite. Mental Status [...] PMScope Out: 1:31:13 PM | | | [facility], [address] [place] [address] | | | [place] [address] | | | - Discharge patient to [...] |Scope Out: 1:31:13 PM | | | [facility], [address] [place] [address] | | | [address] | | + + -+ + +---------+ [...] 12/24/2017 | [facility]OVATION | | 1:17 PMMRN: [id number] #: [id number] of : | | | 9Admit Type: AmbulatoryAge: 57Room: [facility] 01Gender: MaleNote | | | Status: FinalizedAttending MD: Emmanuel Daniel MDProcedure: | | | ColonoscopyIndications: Clinically significant diarrhea of | | | unexplained originProviders: Emmanuel Daniel MD, Maria Isabel | | | Arturo RN, Kim Hicks, Alumni Coordinator, | | | Jarett Barakat MD (Anesthesia [...] | | | the anesthesiologist and the morgue technician in the endoscopy suite. | | [...] Scope In: 1:32:55 PMScope Out: 1:48:57 PM [facility] | | | [facility], [address] [place] [address] | | | [phone] | | | - Await pathology results. [...] |Scope Out: 1:48:57 PM | | | [facility], [address] [place] [address] | | | [address] | | + + -+ + +---------+ [...] colonic mucosa with focal adenomatous change. CLR:[facility]:C2NR | | | GROSS DESCRIPTION: Received in four parts. A. Received in | | | formalin labeled "Moe Maunie, A." and labeled "duodenal bx" on | | | the requisition are six pink-lin tissue fragments measuring from | | | 0.3-0.8 cm submitted, all in (A1). B. Received in formalin labeled | | | "Moe Maunie, C." and labeled "B, left colon bx" on the | | | requisition are five pink-lin tissue fragments measuring from 0.2-09.9 | | | cm, submitted, all in (B1). C. Received in formalin labeled | | | "Moe Maunie, D." and labeled "C, bx TI" on [...] | cm, submitted, all in (D1). ka:CLR:[facility] ADDITIONAL NOTES: | | | Immunohistochemical studies were performed on this case with the | | | appropriate positive controls that react as expected. This test was | | | developed and its performance characteristics determined by [facility] | | | [facility]. It has not been cleared or approved by the U.S. Food | | | and Drug Administration. The FDA has determined that such clearance | | | or approval is not necessary. This test is used for clinical | | | purposes. It should not be regarded as investigational or for | | | research. [facility] is certified under the Clinical | | | Laboratory Improvement Amendments of 1988 (CLIA) as qualified to | | | perform high complexity clinical laboratory testing. This assay | | | has not been validated for specimens that have been decalcified. | | | PERFORMING LABORATORY: Tissue processing and slide preparation were | | | performed by [facility], [address], [facility] | | | [place] [address] (Laborer Aquatic Life: Evan Frausto M.D. [place]#: | | | [id number]). Professional interpretation was performed by [facility] | | | [facility], [address], [place] [address] | | | (Lab[employer] Life: Evan Frausto M.D.; [place]#: [id number]). | | | Diagnostician: Rafael Bales MD Pathologist Electronically | | | Signed 12/28/2017 | | + + + + +---------+ + + | Performing | Address | City/State/[facility] Hospitalcode | Phone Number | | Organization [...]
--- OUTSIDE RECORDS SUMMARY | ~2020-04-13 | XMS | Encounter Summary ---
Demographics + + + | Address | [address] | | | [place] [address] | + + + | Home Phone [...] Author | [facility] | | | [...] Providers + +------+ + | Care Automobile Sales Consultant Name | Role | Phone [...] [address] | | | | | [address] | [place] | | | | | [phone] | [address] | | | | | | | [...] W | | | | | | [place], | | | | | | [place] [address] | | | | | | [phone] | | | | | | | | +--------+ + + + + | 05/01/ | Procedure | Cardiology | | | | 2019 | visit | | | | +--------+ + + + + | 05/01/ | Office | Cardiology | Silvia, | | | 2019 | Visit | | [address] | | | | | | [place], | | | | | | [place] [address] | | | | | | [phone] | | | | | | | | +--------+ + + + + | 05/21/ | Implant | Cardiology | Daljit Singletary, | Remote Device | 2019 | Monitor | | MD [address] | Interrogation | | | | | [place], | (Primary Dx); | | | | | [place] [address] | Pacemaker; | | | | | [phone] | Sinoatrial node | | | | | | dysfunction (HCC) | | | | | | with symptomatic | | | | | | bradycardia | +--------+ + + + + documented as of this encounter Visit Diagnoses Not on filedocumented in this encounter"
--- OUTSIDE RECORDS SUMMARY | ~2020-04-13 | XMS | Encounter Summary ---
Demographics + + + | Address | [address] | | | [place] [address] | + + + | Home Phone [...] Team Providers + +------+ + | Care Gym Supervisor Name | Role | Phone | + +------+ + PCP | Unavailable | + +------+ + Encounter Details +--------+ + + + + | Date | Type | Department | Care Team | Description | +--------+ + + + + | 05/02/ | [facility] | [facility] | Jonathan, | | | 2009 | Encounter | MED CTR EMERGENCY | Martell Cr MD [address] | | | | | CENTER [address] | [place] | | | | | [place] | [place] [address] | | | | | [address] | [phone] | | | | | [phone] | | | +--------+ + + + [...] | | | | | | [place] [address] | | | | | | [phone] | | | | | | | [...] | | | | | | [place] [address] | | | | | | [phone] | | | | | | | | +--------+ + + + + | 05/21/ | Implant | Cardiology | Daljit Singletary, | Remote Device | 2019 | Monitor | | MD [address] [place] | Interrogation | | | | | [place], | (Primary Dx); | | | | | [place] [address] | Pacemaker; | | | | | [phone] | Sinoatrial node | | | | | | dysfunction (HCC) | | | | | | with symptomatic | | | | | | bradycardia | +--------+ + + + + documented as of this encounter Visit Diagnoses Not on filedocumented in this encounter"
--- OUTSIDE RECORDS SUMMARY | ~2020-04-13 | XMS | Encounter Summary ---
Demographics + + + | Address | [address] | | | [place] [address] | + + + | Home Phone [...] Providers + +------+ + | Care Adjunct Faculty For Medical Terminology Name | Role | Phone | + +------+ + PCP | Unavailable | + +------+ + Encounter Details +--------+ + + + + | Date | Type | Department | Care Team | Description | +--------+ + + + + | 04/22/ | Hospital | [facility] | | | | 2011 | Encounter | MED CTR XRAY [address] | | | | | | [place] | | | | | | [place] [address] | | | | | | [phone] | | | +--------+ + + + [...] + + + +---------+ + + | [place]-3 Fatty | CAPS, one capsule by | [...] | | | | | | [place] [address] | | | | | | [phone] | | | | | | | | +--------+ + + + + | 05/01/ | Procedure | Cardiology | | | | 2019 | visit | | | | +--------+ + + + + | 05/01/ | Office | Cardiology | Silvia, | | | 2019 | Visit | | PARISA [address] | | | | | | [place], | | | | | | [place] [address] | | | | | | [phone] | | | | | | | | +--------+ + + + + | 05/21/ | Implant | Cardiology | Daljit Singletary, | Remote Device | | 2019 | Monitor | | MD [address] [place] | Interrogation | | | | | [place], | (Primary Dx); | | | | | [place] [address] | Pacemaker; | | | | | [phone] | Sinoatrial node | | | | [...] At | + + + | [facility] Diagnostic Imaging Department | [place] | | [address] [facility] | [place] [facility] | | CT MYELOGRAM LUMBAR [...] Transcribed Date/Time: | | | 04/23/2012 11:06 Lip Of Shank Cutter: <Electronically Signed | | | by Jama Solis MD> 04/24/12 0730 | | + + + + + | Procedure Note | + + | Kevin, Rad Conversion - 12/29/2013 5:27 PM [facility] | | Diagnostic Imaging Department [address] [place] [address] | | CT MYELOGRAM LUMBAR SPINE, 04/22/2012 [...] 10:54 | |Transcribed Date/Time: 04/23/2012 11:06 | |Lip Of Shank Cutter: | |<Electronically Signed by Jama Solis MD> 04/24/12 0730 | + + + +---------+ + + | Performing | Address | City/State/Zipcode | Phone Number | | Organization | | | | + +---------+ + + | [facility] | | | | | [facility] | | | | + +---------+ + + CT Thoracic Spine w Contrast (04/22/2012 1:12 PM PDT) + + | Specimen | + + | | + + + + + | Narrative | Performed At | + + + | [facility] Diagnostic Imaging Department | [facility] | | [address] [facility] | [facility] | | THORACIC CT MYELOGRAM | DIAG [...] Transcribed Date/Time: 04/22/2012 17:32 | | | Lip Of Shank Cutter: <Electronically Signed by Jama Mason | | | MD Will> 04/23/12 1039 | | + + + + + | Procedure Note | + + | Kevin, Rad Conversion - 12/29/2013 5:27 PM [facility] | | Diagnostic Imaging Department [address] [facility] | | THORACIC CT MYELOGRAM CLINICAL HISTORY: [...] 16:56 | |Transcribed Date/Time: 04/22/2012 17:32 | |Lip Of Shank Cutter: | |<Electronically Signed by Jama Solis MD> 04/23/12 1039 | + + + +---------+ + + | Performing | Address | City/State/Zipcode | Phone Number | | Organization | | | | + +---------+ + + | [place] | | | | | [facility] | | | | + +---------+ + + CT Cervical Spine w Contrast (04/22/2012 1:12 PM PDT) + + | Specimen | + + | | + + + + + | Narrative | Performed At | + + + | [facility] Diagnostic Imaging Department | [facility] | | [address] [facility] | [facility] | | CT MYELOGRAM CERVICAL SPINE | [...] study from | | | 09/02/2009, [facility]. FINDINGS: Firm bony ankylosis | | | [...] Transcribed Date/Time: | | | 04/22/2012 17:25 Lip Of Shank Cutter: 1 <Electronically Signed | | | by Jama Solis MD> 04/23/12 1039 | | + + + + + | Procedure Note | + + | Kevin, Rad Conversion - 12/29/2013 5:27 PM [facility] | | Diagnostic Imaging Department | | [address] [facility] | | | | | | [...] | COMPARISON: Similar study from 09/02/2009, [facility]. | | | | FINDINGS: Firm bony [...] | Transcribed Date/Time: 04/22/2012 17:25 | | Lip Of Shank Cutter: | | <Electronically Signed by Jama [...] At | + + + | [facility] Diagnostic Imaging Department | [place] | | [address] [place] | [place] | | LUMBAR [...] Transcribed Date/Time: 04/22/2012 16:36 | | | Lip Of Shank Cutter: DEBRA <Electronically Signed by Jama Mason | | | MD Will> 04/23/12 1039 | | + + + + + | Procedure Note | + + | Kevin, Rad Conversion - 12/29/2013 5:27 PM [facility] | | Diagnostic Imaging Department [address] [place] [address] | | LUMBAR MYELOGRAM INJECTION FOR CT [...] 15:51 | |Transcribed Date/Time: 04/22/2012 16:36 | |Lip Of Shank Cutter: | |<Electronically Signed by Jama Solis [...]
--- OUTSIDE RECORDS SUMMARY | ~2020-04-13 | XMS | Encounter Summary ---
Demographics + + + | Address | [address] | | | [place] [address] | + + + | Home Phone [...] Providers + +------+ + | Care Electric Trucker Name | Role | Phone | + [...] [address] | [place] | Dx); Hypoglycemia; | | | | [place] | [address] | Herpes | | | | [address] | | | | | | [phone] | | | +--------+---------+ + + + [...] lowering his testosterone levels. He seen at [facility]. He was prescribed OxyContin and Dilaudid. [...] erectile dy sfunction. He was seen at [facility] yesterday and they prescribed him testostero ne cypionate injections. He's not sure when they wanted him to come back for labs. He has a followup appointment with [facility] in one month. Patient complains of [...] HTN (hypertension); Hypercholesterolemia; Bipolar 1 disorder; Insomnia; Clinical Asst jennfier neck pain; Depression; Hyperlipidemia; BIPOLAR DISORDER UNSPECIFIED; [...] per orders. This note is dictated using Mr. Number voice recognition software. This note was dictated [...] [address] | | | | | | [place], | | | | | | [place] [address] | | | | | | [phone] | | | | | | | | +--------+ + + + + | 05/01/ | Procedure | Cardiology | | | | 2019 | visit | | | | +--------+ + + + + | 05/01/ | Office | Cardiology | Silvia, | | | 2019 | Visit | | PARISA [place] [address] | | | | | | [place], | | | | | | [place] [address] | | | | | | [phone] | | | | | | | | +--------+ + + + + | 05/21/ | Implant | Cardiology | Daljit Singletary, | Remote Device | | 2020 | Monitor | | [address] [facility] | Interrogation | | | | | [place], | (Primary Dx); | | | | | [place] [address] | Pacemaker; | | | | | [phone] | Sinoatrial node | | | | [...]
--- OUTSIDE RECORDS SUMMARY | ~2020-04-13 | XMS | Encounter Summary ---
Demographics + + + | Address | [address] [place] [address] [place] | | | [place] [address] | + + + | Home Phone [...] [place] | | | | | [address] | | + + + + + Care Team Providers + +------+ + | Care Gas Producer Name | Role | Phone | [...]
--- OUTSIDE RECORDS SUMMARY | ~2020-04-13 | XMS | Encounter Summary ---
Demographics + + + | Address | [address] | | | [place] [address] | + + + | Home Phone [...] Team Providers + +------+ + | Care Seasonal Clerk Name | Role | Phone | [...] 2012 | | CARDIOLOGY [address] | CIVIL PREPAREDNESS TRAINING OFFICER [address] [place] | faxed) | | | | [place], | [facility] [place] | | | | | [place] [address] | [address] | | | | | [phone] | | | +--------+ + + + [...] | | | | | | [place] [address] | | | | | | [phone] | | | | | | | [...] | | | | | | [place] [address] | | | | | | [phone] | | | | | | | | +--------+ + + + + | 05/21/ | Implant | Cardiology | Daljit Singletary, | Remote Device | | 2019 | Monitor | | [address] [facility] | Interrogation | | | | | [place], | (Primary Dx); | | | | | [place] [address] | Pacemaker; | | | | | [phone] | Sinoatrial node | | | | | | dysfunction (HCC) | | | | | | with symptomatic | | | | | | bradycardia | +--------+ + + + + documented as of this encounter Visit Diagnoses Not on filedocumented in this encounter"
--- OUTSIDE RECORDS SUMMARY | ~2020-04-13 | XMS | Encounter Summary ---
Demographics + + + | Address | [address] | | | [place] [address] | + + + | Home Phone [...] Providers + +------+ + | Care Train Braker Name | Role | Phone [...] [address] | | | | | [place], | [place], | | | | | [place] [address] | [place] [address] | | | | | [phone] | [phone] | | | | | | | [...] | | | | | | [place], | | | | | | [place] [address] | | | | | | [phone] | | | | | | | | +--------+ + + + + | 05/01/ | Procedure | Cardiology | | | | 2019 | visit | | | | +--------+ + + + + | 05/01/ | Office | Cardiology | Silvia, | | | 2019 | Visit | | [address] | | | | | | [place], | | | | | | [place] [address] | | | | | | [phone] | | | | | | | | +--------+ + + + + | 05/21/ | Implant | Cardiology | Daljit Singletary, | Remote Device | 2019 | Monitor | | MD [address] [place] | Interrogation | | | | | [place], | (Primary Dx); | | | | | [place] [address] | Pacemaker; | | | | | [phone] | Sinoatrial node | | | | | | dysfunction (HCC) | | | | | | with symptomatic | | | | | | bradycardia | +--------+ + + + + documented as of this encounter Visit Diagnoses Not on filedocumented in this encounter"
--- OUTSIDE RECORDS SUMMARY | ~2020-04-13 | XMS | Encounter Summary ---
Demographics + + + | Address | [address] | | | [place] [address] | + + + | Home Phone [...] Providers + +------+ + | Care Title Specialist Name | Role | Phone | [...] + + | 12/23/ | Telephone | [facility] | Emmanuel Daniel MD | Other (Needs to know | | 2017 | | GASTROENTEROLOGY | [address], [place] | what he can eat | | | | [address] [place] | [address] [place], [place] | today) | | | | [address] [place], [place] | [address] | | | | | [address] | | | | | | [phone] | | | +--------+ + + + [...] | | | | | | [place] [address] | | | | | | [phone] | | | | | | | | +--------+ + + + + | 05/01/ | Procedure | Cardiology | | | | 2019 | visit | | | | +--------+ + + + + | 05/01/ | Office | Cardiology | Silvia, | | | 2019 | Visit | | PARISA Vernon [address] | | | | | | [place], | | | | | | [place] [address] | | | | | | [phone] | | | | | | | | +--------+ + + + + | 05/21/ | Implant | Cardiology | Daljit Singletary, | Remote Device | | 2019 | Monitor | | [address] [facility] | Interrogation | | | | | [place], | (Primary Dx); | | | | | [place] [address] | Pacemaker; | | | | | [phone] | Sinoatrial node | | | | | | dysfunction (HCC) | | | | | | with symptomatic | | | | | | bradycardia | +--------+ + + + + documented as of this encounter Visit Diagnoses Not on filedocumented in this encounter"
--- OUTSIDE RECORDS SUMMARY | ~2020-04-13 | XMS | Encounter Summary ---
Demographics + + + | Address | [address] | | | [place] [address] | + + + | Home Phone [...] Team Providers + +------+ + | Care Booth Manager Name | Role | Phone | [...] | CARDIOLOGY [address] | [address] [place] | (Primary Dx); | | | | [place], | [place], | Tachycardia; | | | | [place] [address] | [place] [address] | Coronary artery | | | | [phone] | [phone] | disease involving | | | | | | [place] coronary | | | | | | artery of [place] | | | | | | [...] | | | | | | [place] [address] | | | | | | [phone] | | | | | | | | +--------+ + + + + | 05/01/ | Procedure | Cardiology | | | | 2019 | visit | | | | +--------+ + + + + | 05/01/ | Office | Cardiology | Silvia, | | | 2019 | Visit | | PARISA [place] [address] | | | | | | [place], | | | | | | [place] [address] | | | | | | [phone] | | | | | | | | +--------+ + + + + | 05/21/ | Implant | Cardiology | Daljit Singletary, | Remote Device | 2019 | Monitor | | [facility] | Interrogation | | | | | [address] [place], | (Primary Dx); | | | | | [place] [address] | Pacemaker; | | | | | [phone] | Sinoatrial node | | | | [...] involving | | | | | | [place] coronary | | | | | | artery of [place] | | | | | | [...] DALJIT | | | | | | ([id number]) on 06/29/2018 | | | | | [...] + + | Coronary artery disease involving [place] coronary artery of [place] heart without | | angina pectoris | + + | Hypertension, unspecified type | + + documented in this encounter"
--- OUTSIDE RECORDS SUMMARY | ~2020-04-13 | XMS | Encounter Summary ---
Demographics + + + | Address | [address] | | | [place] [address] | + + + | Home Phone [...] Team Providers + +------+ + | Care Sider Name | Role | Phone | + [...] unspecified | [address] | | | | | type | [address] | [place], | | | | | Procedures | [place], | [place] | | | | | [place] | [place] [address] | [address] | | | | | Stress Test | Phone: | Phone: | | | | | (Vasodilator | [phone] | [phone] | | | | | ) CHG | Fax: | Fax: | | | | | MYOCARDIAL | [phone] | [phone] | | | | | SPECT | | | | | | | MULTIPLE | | | | | | | STUDIES NM | | | | | | | CV STRS TST | | | | | | | XERS&/OR RX | | | | | | | CONT ECG W/O | | | | | | | I&R NM | | | | | | | [...] unspecified | [address] | [address] | | | | | type | [address] | [place], | | | | | Procedures | [place], | [place] | | | | | [place] | [place] [address] | [address] | | | | | Stress Test | Phone: | Phone: | | | | | (Vasodilator | [phone] | [phone] | | | | | ) CHG | Fax: | Fax: | | | | | MYOCARDIAL | [phone] | [phone] | | | | | SPECT | | | | | | | MULTIPLE | | | | | | | STUDIES NM | | | | | | | CV STRS TST | | | | | | | XERS&/OR RX | | | | | | | CONT ECG W/O | | | | | | | I&R NM | | | | | | | [...] [facility] | Daljit Singletary, | Chest pain, | | 2018 | Encounter | MED CTR NUCLEAR | MD [address] | unspecified type | | | | MEDICINE [address] [place], | | | | | [address] [place], | [place] [address] | | | | | [place] [address] | [phone] | | | | | [phone] | | | | | | | Hydrogen Plant Operations ManagerPavel | | +--------+ + + + [...] + + + +---------+ + + | [place]-3 Fatty | CAPS, one capsule by | [...] | | | | | | [place] [address] | | | | | | [phone] | | | | | | | | +--------+ + + + + | 05/01/ | Procedure | Cardiology | | | | 2019 | visit | | | | +--------+ + + + + | 05/01/ | Office | Cardiology | Silvia, | | | 2019 | Visit | | [address] | | | | | | [address] [place], | | | | | | [place] [address] | | | | | | [phone] | | | | | | | | +--------+ + + + + | 05/21/ | Implant | Cardiology | Daljit Singletary, | Remote Device | 2019 | Monitor | | [address] | Interrogation | | | | | [place], | (Primary Dx); | | | | | [place] [address] | Pacemaker; | | | | | [phone] | Sinoatrial node | | | | [...] | | | | | doctor, Starting [facility] 07/21/18 at | | | | [...] | | | | | | Starting [facility] 07/21/18 at 0822, For | | | | | | | 1 dose, Nuclear Medicine | | | | | | + +-------+ + +---+---+ +---+---+ | | | +---+---+ documented in this encounter"
--- OUTSIDE RECORDS SUMMARY | ~2020-04-13 | XMS | Encounter Summary ---
Demographics + + + | Address | [address] | | | [place] [address] | + + + | Home Phone [...] Providers + +------+ + | Care Retail Selling Floor Leader Name | Role | Phone | + +------+ + PCP | Unavailable | + +------+ + Encounter Details +--------+ + + + + | Date | Type | Department | Care Team | Description | +--------+ + + + + | 01/31/ | Hospital | [facility] | | | | 2008 | Encounter | MED CTR EMERGENCY | | | | | | [place] [address] | | | | | | [place] | | | | | | [address] | | | | | | [phone] | | | +--------+ + + + [...] | | | | | | [place] [address] | | | | | | [phone] | | | | | | | | +--------+ + + + + | 05/01/ | Procedure | Cardiology | | | | 2019 | visit | | | | +--------+ + + + + | 05/01/ | Office | Cardiology | Silvia, | | | 2019 | Visit | | [address] | | | | | | [place], | | | | | | [place] [address] | | | | | | [phone] | | | | | | | | +--------+ + + + + | 05/21/ | Implant | Cardiology | Daljit Singletary, | Remote Device | 2019 | Monitor | | [address] | Interrogation | | | | | [place], | (Primary Dx); | | | | | [place] [address] | Pacemaker; | | | | | [phone] | Sinoatrial node | | | | | | dysfunction (HCC) | | | | | | with symptomatic | | | | | | bradycardia | +--------+ + + + + documented as of this encounter Visit Diagnoses Not on filedocumented in this encounter"
--- OUTSIDE RECORDS SUMMARY | ~2020-04-13 | XMS | Encounter Summary ---
Demographics + + + | Address | [address] | | | [place] [address] | + + + | Home Phone [...] Providers + +------+ + | Care Sports Broadcaster Name | Role | Phone | + [...] + + | 01/22/ | Refill | [facility] | Kirk French | Medication Refill | | 2019 | | [facility] | MD [address] | | | | | [address] | [address] | | | | | [address] | [place] [address] | | | | | [place], [place] | [phone] | | | | | [address] | | | | | | [phone] | | | +--------+--------+ + + + [...] | | | | | | [place] [address] | | | | | | [phone] | | | | | | | | +--------+ + + + + | 05/01/ | Procedure | Cardiology | | | | 2019 | visit | | | | +--------+ + + + + | 05/01/ | Office | Cardiology | Silvia, | | | 2019 | Visit | | [address] | | | | | | [place], | | | | | | [place] [address] | | | | | | [phone] | | | | | | | | +--------+ + + + + | 05/21/ | Implant | Cardiology | Daljit Singletary, | Remote Device | | 2019 | Monitor | | [address] [facility] [place] [facility] | Interrogation | | | | | [place], | (Primary Dx); | | | | | [place] [address] | Pacemaker; | | | | | [phone] | Sinoatrial node | | | | | | dysfunction (HCC) | | | | | | with symptomatic | | | | | | bradycardia | +--------+ + + + + documented as of this encounter Visit Diagnoses Not on filedocumented in this encounter"
--- OUTSIDE RECORDS SUMMARY | ~2020-04-13 | XMS | Encounter Summary ---
Demographics + + + | Address | [address] | | | [place] [address] | + + + | Home Phone [...] Providers + +------+ + | Care Web Developer Programmer Name | Role | Phone | [...] | [address] [place] [place] | [place] [address] | | | | | [address] | [phone] | | | | | [phone] | | | +--------+ + + + [...] | | | | | | [place] [address] | | | | | | [phone] | | | | | | | | +--------+ + + + + | 05/01/ | Procedure | Cardiology | | | | 2019 | visit | | | | +--------+ + + + + | 05/01/ | Office | Cardiology | Silvia, | | | 2019 | Visit | | [address] | | | | | | [place], | | | | | | [place] [address] | | | | | | [phone] | | | | | | | | +--------+ + + + + | 05/21/ | Implant | Cardiology | Daljit Singletary, | Remote Device | 2019 | Monitor | | [address] [place] | Interrogation | | | | | [place], | (Primary Dx); | | | | | [place] [address] | Pacemaker; | | | | | [phone] | Sinoatrial node | | | | | | dysfunction (HCC) | | | | | | with symptomatic | | | | | | bradycardia | +--------+ + + + + documented as of this encounter Visit Diagnoses Not on filedocumented in this encounter"
--- OUTSIDE RECORDS SUMMARY | ~2020-04-13 | XMS | Encounter Summary ---
Demographics + + + | Address | [address] | | | [place] [address] | + + + | Home Phone [...] Providers + +------+ + | Care Rod Cup Filler Name | Role | Phone | [...] 2018 | | GASTROENTEROLOGY | [address], [place] | about prep for | | | | [address] [place] | [address] [place], [place] | procedure) | | | | [address] [place], [place] | [address] | | | | | [address] | | | | | | [phone] | | | +--------+ + + + [...] | | | | | | [place] [address] | | | | | | [phone] | | | | | | | [...] | | | | | | [place] [address] | | | | | | [phone] | | | | | | | | +--------+ + + + + | 05/21/ | Implant | Cardiology | Daljit Singletary, | Remote Device | 2019 | Monitor | | [address] | Interrogation | | | | | [place], | (Primary Dx); | | | | | [place] [address] | Pacemaker; | | | | | [phone] | Sinoatrial node | | | | | | dysfunction (HCC) | | | | | | with symptomatic | | | | | | bradycardia | +--------+ + + + + documented as of this encounter Visit Diagnoses Not on filedocumented in this encounter"
--- OUTSIDE RECORDS SUMMARY | ~2020-04-13 | XMS | Encounter Summary ---
Demographics + + + | Address | [address] | | | [place] [address] | + + + | Home Phone [...] Providers + +------+ + | Care Food And Beverage Controller Name | Role | Phone | [...] W | reprogramming/check | | | | [address] [place], | [address] [place] | DO NOT DELETE | | | | [place] [address] | [place] [address] | (Primary Dx); | | | | [phone] | [phone] | Pacemaker - | | | | | | Medtronic - [id number] | | | | | | Adapta - Implanted | | | | | | 06/14/2009; | | | | | | Sinoatrial node | | | | | | dysfunction ([facility]) | | | | | | with [...] | | | | | | [place] [address] | | | | | | [phone] | | | | | | | | +--------+ + + + + | 05/01/ | Procedure | Cardiology | | | | 2019 | visit | | | | +--------+ + + + + | 05/01/ | Office | Cardiology | Silvia, | | | 2019 | Visit | | [address] | | | | | | [place], | | | | | | [place] [address] | | | | | | [phone] | | | | | | | | +--------+ + + + + | 05/21/ | Implant | Cardiology | Daljit Singletary, | Remote Device | | 2019 | Monitor | | [address] [facility] | Interrogation | | | | | [place], | (Primary Dx); | | | | | [place] [address] | Pacemaker; | | | | | [phone] | Sinoatrial node | | | | | | dysfunction ([facility]) | | | | | | with [...] PATIENT NAME: Moe Bradley | | | aLura : 1960: AGE: 58 y.o. Pacemaker Evaluation [...]
--- OUTSIDE RECORDS SUMMARY | ~2020-04-13 | XMS | Encounter Summary ---
Demographics + + + | Address | [address] | | | [place] [address] | + + + | Home Phone [...] Team Providers + +------+ + | Care Grease Buffer Name | Role | Phone | + +------+ + | Krik French MD | PCP | | + +------+ + Encounter Details +--------+ + + + + | Date | Type | Department | Care Team | Description | +--------+ + + + + | 12/24/ | [facility] | [facility] | Emmanuel Daniel MD | Pain of upper | | 2018 | Encounter | MED CTR MP INTRA OP | [address], [place] | abdomen (Primary | | | | [address] | [address] [place], [place] | Dx); Functional | | | | [place] | [address] | diarrhea; Weight | | | | [address] | | loss | | | | [phone] | | | +--------+ + + + [...] + + + +---------+ + + | [place]-3 Fatty | CAPS, one capsule by [...] | | | | | | [address] [place], | | | | | | [place] [address] | | | | | | [phone] | | | | | | | | +--------+ + + + + | 05/01/ | Procedure | Cardiology | | | | 2019 | visit | | | | +--------+ + + + + | 05/01/ | Office | Cardiology | Silvia, | | | 2019 | Visit | | [address] | | | | | | [place], | | | | | | [place] [address] | | | | | | [phone] | | | | | | | | +--------+ + + + + | 05/21/ | Implant | Cardiology | Daljit Singletary, | Remote Device | | 2019 | Monitor | | MD [address] [facility] | Interrogation | | | | | [place], | (Primary Dx); | | | | | [place] [address] | Pacemaker; | | | | | [phone] | Sinoatrial node | | | | [...] + | Performed at: 01 - [facility] [place] [address], | REFERENCE LAB | | [place], [place] [id number] Supervisor Tile And Mottle: William Andrew MD, Phone: | ARSH - KINA | | [phone] | | + + + + + + + + | Performing | Address | City/State/Zipcode | Phone Number | | Organization | | | | + + + + + | REFERENCE LAB | [address] | [place], [place] | [phone] | | ARSH - KINA | [facility] | [address] | | + + + + + [...] ST. | [address] | [place] | [phone] | | [facility] | | [address] | | | - LABORATORY | | [...] | | | Aeromonas, Plesiomonas, | | [facility] | | | | E. coli O157 or | | MEDICAL | | | | Yersinia isolated. | | CENTER - | | | | | | LABORATORY | | + + + + + + | Culture | 4+ Usual FloraComment: | | [facility] | | | | Consistent with usual | | [facility] | | | | enteric michelle. | [...] [address] | [place] | [phone] | | [facility] | | [address] | | | - LABORATORY | | [...] [address] | [place] | [phone] | | [facility] | | [address] | | | - LABORATORY | | [...] + | Performed at: 01 - [facility] [place] [address], | REFERENCE LAB | | [place], [place] [id number] Supervisor Tile And Mottle: William Andrew MD, Phone: | [facility] | | [phone] | | + + + + + + + + | Performing | Address | City/State/Zipcode | Phone Number | | Organization | | | | + + + + + | REFERENCE LAB | [address] | [place], [place] | [phone] | | [facility] | [facility] [facility] | [address] | | + + + + + Lactoferrin, Fecal, Qual (12/24/2017 1:34 PM PST) + + + + + + | Component | Value | Ref Range | Performed | Pathologist | | | | | At | Signature | + + + + + + | Lactoferrin | Negative | Negative | [facility] | | | , Qual | | | [facility] | | | | | | MEDICAL [...] [address] | [place] | [phone] | | [facility] | | [address] | | | - LABORATORY | | [...] ST. | [address] | [place] | [phone] | | [facility] | | [address] | | | - LABORATORY | | [...] [address] | [place] | [phone] | | [facility] | | [address] | | | - LABORATORY | | [...] ST. | [address] | [place], [place] | [phone] | | [facility] | | [address] | | | - LABORATORY | | [...] ST. | [address] | [place], [place] | [phone] | | [facility] | | [address] | | | - LABORATORY | | | | + + + + + EGD (12/24/2017 1:19 PM PST) + + | Specimen | + + | | + + + + -+ | Narrative | Performed At | + + -+ | | [facility] | | GastroenterologyPatient Name: Moe SanchezProcedpasha Date: 12/24/2017 | [facility] | | 1:19 PMMRN: [id number] #: [id number] of : | | | 9Admit Type: AmbulatoryAge: 57Room: [facility] 01Gender: MaleNote | | | Status: FinalizedAttending MD: Emmanuel Daniel , MDProcedure: | | | Upper GI endoscopyIndications: Diarrhea, Weight | | | lossProviders: Emmanuel Daniel MD, Maria Isabel Morris RN, | | | Kim Hicks, Patternmaker Wood, [place] | | | Sapna Barakat MD (Anesthesia [...] the anesthesiologist and | | | the automotive glass technician in the endoscopy suite. Mental Status [...] PMScope Out: 1:31:13 PM | | | [facility], [address] [place] [address] | | | [place] [address] | | | - Discharge patient to [...] |Scope Out: 1:31:13 PM | | | [facility], [address] [place] [address] | | | [address] | | + + -+ + +---------+ [...] 12/24/2017 | [facility] | | 1:17 PMMRN: [id number] #: [id number] of : | | | 9Admit Type: AmbulatoryAge: 57Room: [facility] 01Gender: MaleNote | | | Status: FinalizedAttending MD: Emmanuel Daniel MDProcedure: | | | ColonoscopyIndications: Clinically significant diarrhea of | | | unexplained originProviders: Emmanuel Daniel MD, Maria Isabel | | | Arturo RN, Kim Hicks, Patternmaker Wood, | | | Jarett Barakat MD (Anesthesia [...] | | | the anesthesiologist and the automotive glass technician in the endoscopy suite. | | [...] 1:48:57 PM [facility] | | | [facility], [address] [place] [address] | | | [phone] | | | - Await pathology results. [...] |Scope Out: 1:48:57 PM | | | [facility], [address] [place] [address] | | | [address] | | + + -+ + +---------+ [...] | colonic mucosa with focal adenomatous change. CLR:[facility]:C2NR | | | GROSS DESCRIPTION: Received in four parts. A. Received in | | | formalin labeled "Moe Ravenna, A." and labeled "duodenal bx" on | | | the requisition are six pink-lin tissue fragments measuring from | | | 0.3-0.8 cm submitted, all in (A1). B. Received in formalin labeled | | | "Moe Ravenna, C." and labeled "B, left colon bx" on the | | | requisition are five pink-lin tissue fragments measuring from 0.2-09.9 | | | cm, submitted, all in (B1). C. Received in formalin labeled | | | "Moe [place], D." and labeled "C, bx TI" on [...] | | cm, submitted, all in (D1). ka:CLR:[facility] ADDITIONAL NOTES: | | | Immunohistochemical studies were performed on this case with the | | | appropriate positive controls that react as expected. This test was | | | developed and its performance characteristics determined by [facility] | | | [facility]. It has not been cleared or approved by the U.S. Food | | | and Drug Administration. The FDA has determined that such clearance | | | or approval is not necessary. This test is used for clinical | | | purposes. It should not be regarded as investigational or for | | | research. [facility] is certified under the Clinical | | | Laboratory Improvement Amendments of 1988 (CLIA) as qualified to | | | perform high complexity clinical laboratory testing. This assay | | | has not been validated for specimens that have been decalcified. | | | PERFORMING LABORATORY: Tissue processing and slide preparation were | | | performed by [facility], [address], [facility] | | | [place] [address] (Water Hauler: Evan Frausto M.D. [place]#: | | | [id number]). Professional interpretation was performed by [facility] | | | [facility], [address], [place] [address] | | | (Water Hauler: Evan Frausto M.D.; IA#: [id number]). | | | Diagnostician: Rafael Bales MD Pathologist Electronically | | | Signed 12/28/2017 | | + + + + +---------+ + + | Performing | Address | City/State/[facility]code | Phone Number | | [...]
--- OUTSIDE RECORDS SUMMARY | ~2020-04-13 | XMS | Encounter Summary ---
Demographics + + + | Address | [address] | | | [place] [address] | + + + | Home Phone [...] Team Providers + +------+ + | Care Webbing Weaver Name | Role | Phone | + +------+ + PCP | Unavailable | + +------+ + Encounter Details +--------+ + + + + | Date | Type | Department | Care Team | Description | +--------+ + + + + | 12/01/ | Hospital | [facility] | | | | 1997 | Encounter | MED CTR EMERGENCY | | | | | | CENTER [address] | | | | | | [place] | | | | | | [address] | | | | | | [phone] | | | +--------+ + + + [...] | | | | | | [place] [address] | | | | | | [phone] | | | | | | | | +--------+ + + + + | 05/01/ | Procedure | Cardiology | | | | 2019 | visit | | | | +--------+ + + + + | 05/01/ | Office | Cardiology | Silvia, | | | 2019 | Visit | | [address] | | | | | | [place], | | | | | | [place] [address] | | | | | | [phone] | | | | | | | | +--------+ + + + + | 05/21/ | Implant | Cardiology | Daljit Singletary, | Remote Device | 2019 | Monitor | | [address] [place] | Interrogation | | | | | [place], | (Primary Dx); | | | | | [place] [address] | Pacemaker; | | | | | [phone] | Sinoatrial node | | | | | | dysfunction (HCC) | | | | | | with symptomatic | | | | | | bradycardia | +--------+ + + + + documented as of this encounter Visit Diagnoses Not on filedocumented in this encounter"
--- OUTSIDE RECORDS SUMMARY | ~2020-04-13 | XMS | Encounter Summary ---
Demographics + + + | Address | [address] | | | [place] [address] | + + + | Home Phone [...] Providers + +------+ + | Care Employment Programs Analyst Name | Role | Phone | + +------+ + PCP | Unavailable | + +------+ + Encounter Details +--------+ + + + + | Date | Type | Department | Care Team | Description | +--------+ + + + + | 06/17/ | Hospital [facility] | | | 2008 | Encounter | MED CTR EMERGENCY | | | | | | [place] [address] | | | | | | [place] | | | | | | [address] | | | | | | [phone] | | | +--------+ + + + [...] | | | | | | [place] [address] | | | | | | [phone] | | | | | | | | +--------+ + + + + | 05/01/ | Procedure | Cardiology | | | | 2019 | visit | | | | +--------+ + + + + | 05/01/ | Office | Cardiology | Silvia, | | | 2019 | Visit | | [address] | | | | | | [place], | | | | | | [place] [address] | | | | | | [phone] | | | | | | | | +--------+ + + + + | 05/21/ | Implant | Cardiology | Daljit Singletary, | Remote Device | 2019 | Monitor | | [address] [place] | Interrogation | | | | | [place], | (Primary Dx); | | | | | [place] [address] | Pacemaker; | | | | | [phone] | Sinoatrial node | | | | | | dysfunction (HCC) | | | | | | with symptomatic | | | | | | bradycardia | +--------+ + + + + documented as of this encounter Visit Diagnoses Not on filedocumented in this encounter"
--- OUTSIDE RECORDS SUMMARY | ~2020-04-13 | XMS | Encounter Summary ---
Demographics + + + | Address | [address] | | | [place] [address] | + + + | Home Phone [...] + +------+ + | Care Advanced Practice Provider Name | Role | Phone | [...] 2019 | | GASTROENTEROLOGY | [address] | | | | | [address] | [place] | | | | | [address] [place] | [place] [address] | | | | | [address] | | | | | | [phone] | | | +--------+ + + + [...] | | | | | | [place] [address] | | | | | | [phone] | | | | | | | [...] | | | | | | [place] [address] | | | | | | [phone] | | | | | | | | +--------+ + + + + | 06/30/ | Implant | Cardiology | Daljit Singletary, | Remote Device | | 2019 | Monitor | | [address] [facility] | Interrogation | | | | | [place] [place], | (Primary Dx); | | | | | [place] [address] | Pacemaker; | | | | | [phone] | Sinoatrial node | | | | | | dysfunction (HCC) | | | | | | with symptomatic | | | | | | bradycardia | +--------+ + + + + documented as of this encounter Visit Diagnoses Not on filedocumented in this encounter"
--- OUTSIDE RECORDS SUMMARY | ~2020-04-13 | XMS | Encounter Summary ---
Demographics + + + | Address | [address] | | | [place] [address] | + + + | Home Phone [...] Providers + +------+ + | Care Home Service Technician Name | Role | Phone | + +------+ + | Michael Amanda DO | PCP | | + +------+ + Encounter Details +--------+ + + + + | Date | Type | Department | Care Team | Description | +--------+ + + + + | 10/01/ | Hospital | [facility] | Mary Bradshaw | | | 2013 | Encounter | MED CTR J[facility]EN [facility] | Guy Larkin MD | | | | | [address] [place] | [address] | | | | | [place], [place] | [place], [place] | | | | | [address] | [address] | | | | | [phone] | | | +--------+ + + + [...] + + + +---------+ + + | [place]-3 Fatty | CAPS, one capsule by | [...] | | | | | | [place] [address] | | | | | | [phone] | | | | | | | | +--------+ + + + + | 05/01/ | Procedure | Cardiology | | | | 2019 | visit | | | | +--------+ + + + + | 05/01/ | Office | Cardiology | [place], | | | 2019 | Visit | | [address] [address] | | | | | | [place], | | | | | | [place] [address] | | | | | | [phone] | | | | | | | | +--------+ + + + + | 05/21/ | Implant | Cardiology | Daljit Singletary, | Remote Device | | 2019 | Monitor | | [address] | Interrogation | | | | | [place], | (Primary Dx); | | | | | [place] [address] | Pacemaker; | | | | | [phone] | Sinoatrial node | | | | [...] + | MISCELLANEOUS LAB | | | [phone] | + +---------+ + + | MISCELANIOUS LAB | | | [phone] | + +---------+ + + documented in this encounter Visit Diagnoses Not on filedocumented in this encounter"
--- OUTSIDE RECORDS SUMMARY | ~2020-04-13 | XMS | Encounter Summary ---
Demographics + + + | Address | [address] | | | [place] [address] | + + + | Home Phone [...] Providers + +------+ + | Care Pipeline Superintendent Division Name | Role | Phone [...] [address] | | | | | [place], | [place], | | | | | [place] [address] | [place] [address] | | | | | [phone] | [phone] | | | | | | | [...] W | | | | | | [place], | | | | | | [place] [address] | | | | | | [phone] | | | | | | | | +--------+ + + + + | 05/01/ | Procedure | Cardiology | | | | 2019 | visit | | | | +--------+ + + + + | 05/01/ | Office | Cardiology | Silvia, | | | 2019 | Visit | | PARISA [address] W | | | | | | [place], | | | | | | [place] [address] | | | | | | [phone] | | | | | | | | +--------+ + + + + | 05/21/ | Implant | Cardiology | Daljit Singletary, | Remote Device | 2019 | Monitor | | MD [address] [place] | Interrogation | | | | | [place], | (Primary Dx); | | | | | [place] [address] | Pacemaker; | | | | | [phone] | Sinoatrial node | | | | | | dysfunction (HCC) | | | | | | with symptomatic | | | | | | bradycardia | +--------+ + + + + documented as of this encounter Visit Diagnoses Not on filedocumented in this encounter"
--- OUTSIDE RECORDS SUMMARY | ~2020-04-13 | XMS | Encounter Summary ---
Demographics + + + | Address | [address] | | | [place] [address] | + + + | Home Phone [...] Providers + +------+ + | Care Application Support Lead Name | Role | Phone | + +------+ + PCP | Unavailable | + +------+ + Encounter Details +--------+ + + + + | Date | Type | Department | Care Team | Description | +--------+ + + + + | 05/13/ | Hospital | [facility] | | | | 2007 | Encounter | [facility] EM[facility] | | | | | | [place] [address] | | | | | | [place] | | | | | | [address] | | | | | | [phone] | | | +--------+ + + + [...] | | | | | | [place] [address] | | | | | | [phone] | | | | | | | [...] | | | | | | [place] [address] | | | | | | [phone] | | | | | | | | +--------+ + + + + | 05/21/ | Implant | Cardiology | Daljit Singletary, | Remote Device | 2019 | Monitor | | [address] [place] | Interrogation | | | | | [place], | (Primary Dx); | | | | | [place] [address] | Pacemaker; | | | | | [phone] | Sinoatrial node | | | | | | dysfunction (HCC) | | | | | | with symptomatic | | | | | | bradycardia | +--------+ + + + + documented as of this encounter Visit Diagnoses Not on filedocumented in this encounter"
--- OUTSIDE RECORDS SUMMARY | ~2020-04-13 | XMS | Encounter Summary ---
Demographics + + + | Address | [address] | | | [place] [address] | + + + | Home Phone [...] Providers + +------+ + | Care Track Car Operator Name | Role | Phone [...] Provider Unknown | | | | | [place], [place] | [phone] | | | | | [address] | | | | | | [phone] | | | +--------+ + + + [...] | | | | | | | #[id number], exp 07/2016 | | | | | [...] | | | | | | [place] [address] | | | | | | [phone] | | | | | | | | +--------+ + + + + | 05/01/ | Procedure | Cardiology | | | | 2019 | visit | | | | +--------+ + + + + | 05/01/ | Office | Cardiology | Silvia, | | | 2019 | Visit | | PARISA Vernon [address] | | | | | | [place], | | | | | | [place] [address] | | | | | | [phone] | | | | | | | | +--------+ + + + + | 05/21/ | Implant | Cardiology | Daljit Singletary, | Remote Device | | 2020 | Monitor | | [address] [place] | Interrogation | | | | | [place], | (Primary Dx); | | | | | [place] [address] | Pacemaker; | | | | | [phone] | Sinoatrial node | | | | [...]
--- OUTSIDE RECORDS SUMMARY | ~2020-04-13 | XMS | Encounter Summary ---
Demographics + + + | Address | [address] | | | [place] [address] | + + + | Home Phone [...] Providers + +------+ + | Care Financial Retirement Plan Specialist Name | Role | Phone | [...] | (Primary Dx); | | | | [place], | [place], | Bradycardia; HTN | | | | [place] [address] | [place] [address] | (hypertension) | | | | [phone] | [phone] | | | | | | | [...] at which time patient was going to [place] for cyber systems operations specialist co nsult and PVC ablation. Since [...] tablet Take 1,000 mg by mouth Daily. [place]-3 Fatty Acids (SALMON OIL-1000 PO) CAPS, one [...] [facility] at [facility] on 01/30/2013. Patient [...] to go back in 3 days to [place] for an attempt of ablation under general [...] He is in a class II of [place] [employer] functional class. There is no [...] been encouraged to keep his appointment with cyber systems operations specialist this coming to attempt ablation therapy. 4. Follow up appointment in 4-6 weeks. I, PARISA Russell, saw this patient under the direct supervision of Daljit Singletary MD Portions of this report were transcribed using voice recognition software. Every effort wa s made to ensure accuracy; however, inadvertent computerized feed mill supervisor errors may be pre sent. documented in this encounter Plan of Treatment +--------+ + + + + | Date | Type | Specialty | Care Team | Description | +--------+ + + + + | 05/01/ | Appointment | Radiology | Silvia, | | | 2019 | | | PARISA [address] | | | | | | [place], | | | | | | [place] [address] | | | | | | [phone] | | | | | | | | +--------+ + + + + | 05/01/ | Procedure | Cardiology | | | | 2019 | visit | | | | +--------+ + + + + | 05/01/ | Office | Cardiology | Silvia, | | | 2019 | Visit | | [address]ISA [address] | | | | | | [place], | | | | | | [place] [address] | | | | | | [phone] | | | | | | | | +--------+ + + + + | 05/21/ | Implant | Cardiology | Daljit Singletary, | Remote Device | 2019 | Monitor | | [address] [place] | Interrogation | | | | | [place], | (Primary Dx); | | | | | [place] [address] | Pacemaker; | | | | | [phone] | Sinoatrial node | | | | [...]
--- OUTSIDE RECORDS SUMMARY | ~2020-04-13 | XMS | Encounter Summary ---
Demographics + + + | Address | [address] | | | [place] [address] | + + + | Home Phone [...] Team Providers + +------+ + | Care Gyn Physician Name | Role | Phone | [...] | CARDIOLOGY [address] | [address] | card ) | | | | [employer] [place], | [place], | | | | | [place] [address] | [place] [address] | | | | | [phone] | | | | | | | [...] W | | | | | | [employer] [place], | | | | | | [place] [address] | | | | | | [phone] | | | | | | | | +--------+ + + + + | 05/01/ | Procedure | Cardiology | | | | 2019 | visit | | | | +--------+ + + + + | 05/01/ | Office | Cardiology | Silvia, | | | 2019 | Visit | | PARISA [address] | | | | | | [employer] [place], | | | | | | [place] [address] | | | | | | [phone] | | | | | | | | +--------+ + + + + | 05/21/ | Implant | Cardiology | Daljit Singletary, | Remote Device | | 2019 | Monitor | | [address] | Interrogation | | | | | [place], | (Primary Dx); | | | | | [place] [address] | Pacemaker; | | | | | [phone] | Sinoatrial node | | | | | | dysfunction (HCC) | | | | | | with symptomatic | | | | | | bradycardia | +--------+ + + + + documented as of this encounter Visit Diagnoses Not on filedocumented in this encounter"
--- OUTSIDE RECORDS SUMMARY | ~2020-04-13 | XMS | Encounter Summary ---
Demographics + + + | Address | [address] | | | [place] [address] | + + + | Home Phone [...] + +------+ + | Care Director Of Residential Services Name | Role | Phone | [...] [place] | | | | | [address] [place], [place] | [place] [address] | | | | | [address] | [phone] | | | | | [phone] | | | +--------+ + + + [...] W | | | | | | [place], | | | | | | [place] [address] | | | | | | [phone] | | | | | | | | +--------+ + + + + | 05/01/ | Procedure | Cardiology | | | | 2019 | visit | | | | +--------+ + + + + | 05/01/ | Office | Cardiology | Silvia, | | | 2019 | Visit | | PARISA Vernon [address] | | | | | | [place], | | | | | | [place] [address] | | | | | | [phone] | | | | | | | | +--------+ + + + + | 05/21/ | Implant | Cardiology | Daljit Singletary, | Remote Device | | 2019 | Monitor | | [address] [place] | Interrogation | | | | | [place], | (Primary Dx); | | | | | [place] [address] | Pacemaker; | | | | | [phone] | Sinoatrial node | | | | [...]
--- OUTSIDE RECORDS SUMMARY | ~2020-04-13 | XMS | Encounter Summary ---
Demographics + + + | Address | [address] | | | [place] [address] | + + + | Home Phone [...] + +------+ + | Care Guest Service Representative Name | Role | Phone [...] | | | | CENTER [address] | [place], [place] | | | | | [place], [place] | [address] | | | | | [address] | | | | | | [phone] | | | +--------+ + + + [...] new doc you can try over at [facility] documented in this encounter Medications at [...] + + + +---------+ + + | [place]-3 Fatty | CAPS, one capsule by | [...] | | | | | | [place] [address] | | | | | | [phone] | | | | | | | [...] | | | | | | [place] [address] | | | | | | [phone] | | | | | | | | +--------+ + + + + | 05/21/ | Implant | Cardiology | Daljit Singletary, | Remote Device | 2019 | Monitor | | MD [address] [place] | Interrogation | | | | | [place], | (Primary Dx); | | | | | [place] [address] | Pacemaker; | | | | | [phone] | Sinoatrial node | | | | [...]
--- OUTSIDE RECORDS SUMMARY | ~2020-04-13 | XMS | Encounter Summary ---
Demographics + + + | Address | [address] | | | [place] [address] | + + + | Home Phone [...] Providers + +------+ + | Care Police Lieutenant Precinct Name | Role | Phone | + [...] | unspecified | MD Jacek | [address] | | | | | type | [address] | [place], | | | | | Unintentiona | [place] | [place] [address] | | | | | l weight | [place], [place] | Phone: | | | | | loss | [address] | [phone] | | | | | Procedures | Phone: | Fax: | | | | | [facility] | [phone] | [phone] | | | | | INTRALUMINAL | Fax: | | | | | | | [phone] | | | | | | ESOPHAGUS-IL [...] (Primary Dx); | | | | [address] [place], [place] | [place] [address] | Unintentional weight | | | | [address] | [phone] | loss | | | | [phone] | | | +--------+ + + + [...] | | | | | | [place] [address] | | | | | | [phone] | | | | | | | | +--------+ + + + + | 05/01/ | Procedure | Cardiology | | | 2019 | visit | | | | +--------+ + + + + | 05/01/ | Office | Cardiology | Silvia, | | | 2019 | Visit | | PARISA Vernon [address] | | | | | | [place], | | | | | | [place] [address] | | | | | | [phone] | | | | | | | | +--------+ + + + + | 05/21/ | Implant | Cardiology | Daljit Singletary, | Remote Device | | 2019 | Monitor | | [address] [place] | Interrogation | | | | | [place], | (Primary Dx); | | | | | [place] [address] | Pacemaker; | | | | | [phone] | Sinoatrial node | | | | [...]
--- OUTSIDE RECORDS SUMMARY | ~2020-04-13 | XMS | Encounter Summary ---
Demographics + + + | Address | [address] | | | [place] [address] | + + + | Home Phone [...] Team Providers + +------+ + | Care Music Video Director Name | Role | Phone | [...] | | | | [place] | [address] | | | | | [address] | | | | | | [phone] | | | +--------+ + + + [...] W | | | | | | [place], | | | | | | [place] [address] | | | | | | [phone] | | | | | | | | +--------+ + + + + | 05/01/ | Procedure | Cardiology | | | | 2019 | visit | | | | +--------+ + + + + | 05/01/ | Office | Cardiology | Silvia, | | | 2019 | Visit | | PARISA [address] | | | | | | [place], | | | | | | [place] [address] | | | | | | [phone] | | | | | | | | +--------+ + + + + | 05/21/ | Implant | Cardiology | Daljit Singletary, | Remote Device | 2019 | Monitor | | [address] | Interrogation | | | | | [place], | (Primary Dx); | | | | | [place] [address] | Pacemaker; | | | | | [phone] | Sinoatrial node | | | | | | dysfunction (HCC) | | | | | | with symptomatic | | | | | | bradycardia | +--------+ + + + + documented as of this encounter Visit Diagnoses Not on filedocumented in this encounter"
--- OUTSIDE RECORDS SUMMARY | ~2020-04-13 | XMS | Encounter Summary ---
Demographics + + + | Address | [address] [place] [address] [address] | | | [place] [address] | + + + | Home Phone | | + + + | Preferred Language | Unknown | + + + | Marital Status | | + + + | Cheondoism Affiliation | Unknown | + + + [...] [place] | | | | | [address] | | + + + + + Care Team Providers + +------+ + | Care Tube Dispatcher Name | Role | Phone | [...]
--- OUTSIDE RECORDS SUMMARY | ~2020-04-13 | XMS | Encounter Summary ---
Demographics + + + | Address | [address] | | | [place] [address] | + + + | Home Phone [...] Providers + +------+ + | Care Commercial Or Institutional Cleaner Name | Role | Phone | [...] | CARDIOLOGY [address] | MD [address] [place] | | | | | [place], | [place], | | | | | [place] [address] | [place] [address] | | | | | [phone] | [phone] | | | | | | | [...] | | | | | | [place], | | | | | | [place] [address] | | | | | | [phone] | | | | | | | | +--------+ + + + + | 05/01/ | Procedure | Cardiology | | | | 2019 | visit | | | | +--------+ + + + + | 05/01/ | Office | Cardiology | Silvia, | | | 2019 | Visit | | PARISA [address] W | | | | | | [place], | | | | | | [place] [address] | | | | | | [phone] | | | | | | | | +--------+ + + + + | 06/30/ | Implant | Cardiology | Daljit Singletary, | Remote Device | | 2019 | Monitor | | [facility] | Interrogation | | | | | [place], | (Primary Dx); | | | | | [place] [address] | Pacemaker; | | | | | [phone] | Sinoatrial node | | | | | | dysfunction (HCC) | | | | | | with symptomatic | | | | | | bradycardia | +--------+ + + + + documented as of this encounter Visit Diagnoses Not on filedocumented in this encounter"
--- OUTSIDE RECORDS SUMMARY | ~2020-04-13 | XMS | Encounter Summary ---
Demographics + + + | Address | [address] | | | [place] [address] | + + + | Home Phone [...] Providers + +------+ + | Care Car Icer Name | Role | Phone | + [...] + + | 08/19/ | Telephone | [facility] | Silvia, | Other (patient | | 2016 | | CARDIOLOGY [address] | PARISA [place] [address] | having issues with | | | | [place], | [place], | high blood pressure) | | | | [place] [address] | [place] [address] | | | | | [phone] | [phone] | | | | | | | [...] | | | | | | [place] [address] | | | | | | [phone] | | | | | | | [...] | | | | | | [place] [address] | | | | | | [phone] | | | | | | | | +--------+ + + + + | 05/21/ | Implant | Cardiology | Daljit Singletary, | Remote Device | 2019 | Monitor | | [address] | Interrogation | | | | | [place], | (Primary Dx); | | | | | [place] [address] | Pacemaker; | | | | | [phone] | Sinoatrial node | | | | | | dysfunction (HCC) | | | | | | with symptomatic | | | | | | bradycardia | +--------+ + + + + documented as of this encounter Visit Diagnoses Not on filedocumented in this encounter"
--- OUTSIDE RECORDS SUMMARY | ~2020-04-13 | XMS | Encounter Summary ---
Demographics + + + | Address | [address] | | | [place] [address] | + + + | Home Phone [...] + | 06/02/ | Telephone | [facility] | Daljit Singletary, | Other (symptoms) | | 2019 | | CARDIOLOGY [address] | MD [address] [place] | | | | | [place], | [place], | | | | | [place] [address] | [place] [address] | | | | | [phone] | [phone] | | | | | | | [...] | | | | | | [place] [address] | | | | | | [phone] | | | | | | | | +--------+ + + + + | 05/01/ | Procedure | Cardiology | | | | 2019 | visit | | | | +--------+ + + + + | 05/01/ | Office | Cardiology | Silvia, | | | 2019 | Visit | | PARISA Vernon W | | | | | | [place], | | | | | | [place] [address] | | | | | | [phone] | | | | | | | | +--------+ + + + + | 05/21/ | Implant | Cardiology | Daljit Singletary, | Remote Device | 2019 | Monitor | | MD [address] | Interrogation | | | | | [place], | (Primary Dx); | | | | | [place] [address] | Pacemaker; | | | | | [phone] | Sinoatrial node | | | | | | dysfunction (HCC) | | | | | | with symptomatic | | | | | | bradycardia | +--------+ + + + + documented as of this encounter Visit Diagnoses Not on filedocumented in this encounter"
--- OUTSIDE RECORDS SUMMARY | ~2020-04-13 | XMS | Encounter Summary ---
Demographics + + + | Address | [address] | | | [place] [address] | + + + | Home Phone [...] Providers + +------+ + | Care Vp Respiratory Name | Role | Phone | + +------+ + PCP | Unavailable | + +------+ + Encounter Details +--------+ + + + + | Date | Type | Department | Care Team | Description | +--------+ + + + + | 10/19/ | Hospital | [facility] | | | | 1992 | Encounter | MED CTR EMERGENCY | | | | | | CENTER [address] | | | | | | [place] | | | | | | [address] | | | | | | [phone] | | | +--------+ + + + [...] | | | | | | [place] [address] | | | | | | [phone] | | | | | | | [...] | | | | | | [place] [address] | | | | | | [phone] | | | | | | | | +--------+ + + + + | 05/21/ | Implant | Cardiology | Daljit Singletary, | Remote Device | 2019 | Monitor | | [address] | Interrogation | | | | | [place], | (Primary Dx); | | | | | [place] [address] | Pacemaker; | | | | | [phone] | Sinoatrial node | | | | | | dysfunction (HCC) | | | | | | with symptomatic | | | | | | bradycardia | +--------+ + + + + documented as of this encounter Visit Diagnoses Not on filedocumented in this encounter"
--- OUTSIDE RECORDS SUMMARY | ~2020-04-13 | XMS | Encounter Summary ---
Demographics + + + | Address | [address] | | | [place] [address] | + + + | Home Phone [...] [address] | | | | | | [place], [place] | (Fax) | | | | | [address] | | | | | | [phone] | | | +--------+ + + + [...] | | | | | | [place] [address] | | | | | | [phone] | | | | | | | | +--------+ + + + + | 05/01/ | Procedure | Cardiology | | | | 2019 | visit | | | | +--------+ + + + + | 05/01/ | Office | Cardiology | Silvia, | | | 2019 | Visit | | PARISA Vernon [address] | | | | | | [place], | | | | | | [place] [address] | | | | | | [phone] | | | | | | | | +--------+ + + + + | 05/21/ | Implant | Cardiology | Daljit Singletary, | Remote Device | | 2019 | Monitor | | [address] [place] | Interrogation | | | | | [place], | (Primary Dx); | | | | | [place] [address] | Pacemaker; | | | | | [phone] | Sinoatrial node | | | | | | dysfunction (HCC) | | | | | | with symptomatic | | | | | | bradycardia | +--------+ + + + + documented as of this encounter Visit Diagnoses Not on filedocumented in this encounter"
--- OUTSIDE RECORDS SUMMARY | ~2020-04-13 | XMS | Encounter Summary ---
Demographics + + + | Address | [address] | | | [place] [address] | + + + | Home Phone [...] Team Providers + +------+ + | Care Sisal Picker Name | Role | Phone | [...] | | [address] [place] | [place] [id number] | | | | | [place] [address] | | | | | | [phone] | | | +--------+ + + + [...] W | | | | | | [place], | | | | | | [place] [address] | | | | | | [phone] | | | | | | | | +--------+ + + + + | 05/01/ | Procedure | Cardiology | | | | 2019 | visit | | | | +--------+ + + + + | 05/01/ | Office | Cardiology | [place], | | | 2019 | Visit | | PARISA Vernon W | | | | | | [place], | | | | | | [place] [address] | | | | | | [phone] | | | | | | | | +--------+ + + + + | 05/21/ | Implant | Cardiology | Daljit Singletary, | Remote Device | 2019 | Monitor | | [address] [place] | Interrogation | | | | | [place], | (Primary Dx); | | | | | [place] [address] | Pacemaker; | | | | | [phone] | Sinoatrial node | | | | [...] for comparison only - no result from [place]. | | + + + + +---------+ + + | Performing | Address | City/State/Zipcode | Phone Number | | Organization | | | | + +---------+ + + | [facility] | | | | + +---------+ + + documented in this encounter Visit Diagnoses Not on filedocumented in this encounter"
--- OUTSIDE RECORDS SUMMARY | ~2020-04-13 | XMS | Encounter Summary ---
Demographics + + + | Address | [address] | | | [place] [address] | + + + | Home Phone [...] Team Providers + +------+ + | Care Wheat Farmer Name | Role | Phone | [...] + | 11/02/ | Telephone | [facility] | Daljit Singletary, | Other | | 2015 | | CARDIOLOGY [address] | MD [address] | | | | | [place], | [place], | | | | | [place] [address] | [place] [address] | | | | | [phone] | [phone] | | | | | | | [...] | | | | | | [place] [address] | | | | | | [phone] | | | | | | | [...] | | | | | | [place] [address] | | | | | | [phone] | | | | | | | | +--------+ + + + + | 05/21/ | Implant | Cardiology | Daljit Singletary, | Remote Device | | 2019 | Monitor | | [address] [facility] | Interrogation | | | | | [place], | (Primary Dx); | | | | | [place] [address] | Pacemaker; | | | | | [phone] | Sinoatrial node | | | | | | dysfunction (HCC) | | | | | | with symptomatic | | | | | | bradycardia | +--------+ + + + + documented as of this encounter Visit Diagnoses Not on filedocumented in this encounter"
--- OUTSIDE RECORDS SUMMARY | ~2020-04-13 | XMS | Encounter Summary ---
Demographics + + + | Address | [address] | | | [place] [address] | + + + | Home Phone [...] Team Providers + +------+ + | Care Recreation Therapist Name | Role | Phone | [...] [address] | | | | | [address] | [place] | | | | | [phone] | [address] | | | | | | [phone] | | | | | | | [...] Notes by Kylah Fraser CMA at 04/11/18 8414 Author: Kylah Fraser CMA Service: (none) Author Type: Senior Logistics Manager Filed: 04/19/18 1118 Encounter Date: 04/11/2018 Status: Signed Manager Athletics: Kylah Fraser CMA (Senior Logistics Manager) See telephone encounter 04/19/18. Karen pfeiffer [...] | | | | | | [place] [address] | | | | | | [phone] | | | | | | | | +--------+ + + + + | 05/01/ | Procedure | Cardiology | | | | 2019 | visit | | | | +--------+ + + + + | 05/01/ | Office | Cardiology | Silvia, | | | 2019 | Visit | | PARISA Vernon [address] | | | | | | [place], | | | | | | [place] [address] | | | | | | [phone] | | | | | | | | +--------+ + + + + | 05/21/ | Implant | Cardiology | Daljit Singletary, | Remote Device | | 2019 | Monitor | | [address] [place] | Interrogation | | | | | [place], | (Primary Dx); | | | | | [place] [address] | Pacemaker; | | | | | [phone] | Sinoatrial node | | | | [...]
--- OUTSIDE RECORDS SUMMARY | ~2020-04-13 | XMS | Encounter Summary ---
Demographics + + + | Address | [address] | | | [place] [address] | + + + | Home Phone [...] Team Providers + +------+ + | Care Mop Machine Operator Name | Role | Phone [...] | 07/01/ | Hospital | [facility] | Scotty Galdamez, | DDD (degenerative | | 2018 | Encounter | MED CTR XRAY [address] | LIVE SOURCE OPERATOR [address] | disc disease), | | | | [place] | [address] | lumbar; Chronic | | | | [place] [address] | [place] [address] | left-sided low back | | | | [phone] | [phone] | pain with left-sided | | | [...] + + + +---------+ + + | [place]-3 Fatty | CAPS, one capsule by | [...] | | | | | | [place] [address] | | | | | | [phone] | | | | | | | | +--------+ + + + + | 05/01/ | Procedure | Cardiology | | | | 2019 | visit | | | | +--------+ + + + + | 05/01/ | Office | Cardiology | Sil[place], | | | 2019 | Visit | | [address] | | | | | | [place], | | | | | | [place] [address] | | | | | | [phone] | | | | | | | | +--------+ + + + + | 05/21/ | Implant | Cardiology | SunshinecherelleDaljit, | Remote Device | | 2019 | Monitor | | [facility] | Interrogation | | | | | [place], | (Primary Dx); | | | | | [place] [address] | Pacemaker; | | | | | [phone] | Sinoatrial node | | | | [...]
--- OUTSIDE RECORDS SUMMARY | ~2020-04-13 | XMS | Encounter Summary ---
Demographics + + + | Address | [address] | | | [place] [address] | + + + | Home Phone [...] Providers + +------+ + | Care Building Mover Name | Role | Phone | [...] [place] | | | | | | [address] | | | | | | [phone] | | | +--------+ + + + [...] W | | | | | | [place], | | | | | | [place] [address] | | | | | | [phone] | | | | | | | | +--------+ + + + + | 05/01/ | Procedure | Cardiology | | | | 2019 | visit | | | | +--------+ + + + + | 05/01/ | Office | Cardiology | Silvia, | | | 2019 | Visit | | [address] | | | | | | [place], | | | | | | [place] [address] | | | | | | [phone] | | | | | | | | +--------+ + + + + | 05/21/ | Implant | Cardiology | Daljit Singletary, | Remote Device | | 2019 | Monitor | | [facility] | Interrogation | | | | | [address] [place], | (Primary Dx); | | | | | [place] [address] | Pacemaker; | | | | | [phone] | Sinoatrial node | | | | | | dysfunction (HCC) | | | | | | with symptomatic | | | | | | bradycardia | +--------+ + + + + documented as of this encounter Visit Diagnoses Not on filedocumented in this encounter"
--- OUTSIDE RECORDS SUMMARY | ~2020-04-13 | XMS | Encounter Summary ---
Demographics + + + | Address | [address] | | | [place] [address] | + + + | Home Phone [...] Team Providers + +------+ + | Care Heading Saw Operator Name | Role | Phone [...] + + | 05/14/ | Office | [facility] | [place], | Coronary artery | | 2013 | Visit | CARDIOLOGY [address] | [place] [address] | disease (Primary | | | | [place], | [place], | Dx); Hypertension; | | | | [place] [address] | [place] [address] | Hyperlipidemia; | | | | [phone] | [phone] | Syncope; Other chest | | | [...] needed for Chest pain. 25 tablet 12 Jean-3 Fatty Acids (SALMON OIL-1000 PO) CAPS, one capsule by mouth daily twice daily ONE TOUCH DELICA LANCETS [facility] Check glucose as needed for hypoglycemia 100 [...] attenuation cannot completely be ruled out. [facility] 12/25/13, shows noncritical coronary artery [...] exercising. He is in class II of [place] [employer] functional class. There are no [...] to go back in 3 days to [place] for an attempt of ablation under general [...] palpitations.. He is in class II of [place] [employer] functional class. There are no [...] bring in his blood pressure logs from [facility] 5. Lightheadedness and dizziness/ presyncope: A. [...] made to ensure accuracy; however, inadvertent computerized concrete panel installer errors may be pre sent. Electronically signed [...] | | | | | | [place], | | | | | | [place] [address] | | | | | | [phone] | | | | | | | | +--------+ + + + + | 05/01/ | Procedure | Cardiology | | | | 2019 | visit | | | | +--------+ + + + + | 05/01/ | Office | Cardiology | Silvia, | | | 2019 | Visit | | [address] | | | | | | [place], | | | | | | [place] [address] | | | | | | [phone] | | | | | | | | +--------+ + + + + | 05/21/ | Implant | Cardiology | Daljit Singletary, | Remote Device | | 2019 | Monitor | | [facility] | Interrogation | | | | | [place], | (Primary Dx); | | | | | [place] [address] | Pacemaker; | | | | | [phone] | Sinoatrial node | | | | [...] of unspecified type of | | vessel, table mountain or graft | + + | Hypertension Unspecified essential hypertension | + + | Hyperlipidemia Other and unspecified hyperlipidemia | + + | Syncope Syncope and collapse | + + | Other chest pain | + + | Chest pain Chest pain, unspecified | + + documented in this encounter
--- OUTSIDE RECORDS SUMMARY | ~2020-04-13 | XMS | Encounter Summary ---
Demographics + + + | Address | [address] | | | [place] [address] | + + + | Home Phone [...] Providers + +------+ + | Care Self Sealing Fuel Tank Builder Name | Role | Phone | [...] + | 12/23/ | Telephone | [facility] | [place], | Lab Order (due for | | 2017 | | CARDIOLOGY [address] | Janeen, ROCKET TEST FIRE WORKER [address] | fasting labs) | | | | [place], | [place], | | | | | [place] [address] | [place] [address] | | | | | [phone] | [phone] | | | | | | | [...] | | | | | | [place] [address] | | | | | | [phone] | | | | | | | | +--------+ + + + + | 05/01/ | Procedure | Cardiology | | | | 2019 | visit | | | | +--------+ + + + + | 05/01/ | Office | Cardiology | Silvia, | | | 2019 | Visit | | PARISA [address] | | | | | | [place], | | | | | | [place] [address] | | | | | | [phone] | | | | | | | | +--------+ + + + + | 05/21/ | Implant | Cardiology | Daljit Singletary, | Remote Device | | 2019 | Monitor | | [facility] | Interrogation | | | | | [address] [place], | (Primary Dx); | | | | | [place] [address] | Pacemaker; | | | | | [phone] | Sinoatrial node | | | | | | dysfunction (HCC) | | | | | | with symptomatic | | | | | | bradycardia | +--------+ + + + + documented as of this encounter Visit Diagnoses Not on filedocumented in this encounter"
--- OUTSIDE RECORDS SUMMARY | ~2020-04-13 | XMS | Encounter Summary ---
Demographics + + + | Address | [address] | | | [place] [address] | + + + | Home Phone [...] Providers + +------+ + | Care Manager Process Excellence Name | Role | Phone | + [...] [place], [place] | | | | | [place] | | [address] Phone: | | | | | CYSTO/URETER | | [phone] | | | | | O | | Fax: | | | | | W/LITHOTRIPS | | [phone] | | | | | Y &INDWELL [...] + + | 04/13/ | Hospital | [facility] | Matthew Uriarte | Preoperative | | 2019 | Encounter | MED CTR OR INTRA OP | Dahl, MD [address] | clearance (Primary | | | | [address] | [address] [place] | Dx); Left ureteral | | | | [place] | [address] | calculus; Kidney | | | | [address] | | stones | | | | [phone] | | | +--------+ + + + [...] Care Everywhere.Kidney Stones, Treating: Ureteroscopic Stone Removal (Kenyan)Stents, Ureteral (Kenyan)documented in this encounter Medications at Time of [...] + + + +---------+ + + | Glover-3 Fatty | CAPS, one capsule by | [...] | | | | | | | yankton coronary | | | | | | | artery of [place] | | | | | | | [...] | | | | | | [place] [address] | | | | | | [phone] | | | | | | | | +--------+ + + + + | 05/01/ | Procedure | Cardiology | | | | 2019 | visit | | | | +--------+ + + + + | 05/01/ | Office | Cardiology | Silvia, | | | 2019 | Visit | | [address] | | | | | | [place], | | | | | | [place] [address] | | | | | | [phone] | | | | | | | | +--------+ + + + + | 05/21/ | Implant | Cardiology | Daljit Singletary, | Remote Device | | 2019 | Monitor | | [address] | Interrogation | | | | | [place], | (Primary Dx); | | | | | [place] [address] | Pacemaker; | | | | | [phone] | Sinoatrial node | | | | [...] [facility] | | | | | | at:[phone]. | | | | + + + [...] test was developed and | | [facility] | | | | its performance | | - BKR | | | | characteristicsdetermine | | | | | | d by [facility]. It has not | | | | [...] + | Performed at: 01 - Arsh Wagoner [address] [facility], | REFERENCE LAB | | [place], [place] [id number] Event Manager: Yeny Rios MD, Phone: | ARSH CASTANON | | [phone] | | + + + + + + + + | Performing | Address | City/State/Zipcode | Phone Number | | Organization | | | | + + + + + | REFERENCE LAB | [address] | [place], [place] | [phone] | | ARSH CASTANON | [facility] | [address] | | + + + + + [...] + | [facility] | [address] | [place] | [phone] | | [facility] | | [address] | | | - LABORATORY | | [...] + | [facility] | [address] | [place] | [phone] | | [facility] | | [address] | | | - LABORATORY | | [...] + | [facility] | [address] | [place] | [phone] | | [facility] | | [address] | | | - LABORATORY | | [...] + | [facility] | [address] | [place] | [phone] | | [facility] | | [address] | | | - LABORATORY | | [...] | | | | | mmol/L | STJuanD iego MARTINEZ | | | | | | [...] | mL/min/1.73m2 | MICHELLE | | | [place] | RATE,ESTIMATED | | MEDICAL | | | | mL/min/1.96e2Fdmb than | | CENTER - | | [...] [address] | [place] | [phone] | | [facility] | | [address] | | | - LABORATORY | | [...] glucose < 50, | | | Starting [facility] 04/13/19 at 0634, | | | [...] | | | | | | | bbxasi-ork-hdibk use of at least | | | [...] | | First dose on [facility] 04/13/19 at | | | 2030, [...]
--- OUTSIDE RECORDS SUMMARY | ~2020-04-13 | XMS | Encounter Summary ---
Demographics + + + | Address | [address] | | | [place] [address] | + + + | Home Phone [...] Team Providers + +------+ + | Care Ironing Pleater Name | Role | Phone | + [...] 2014 | | CARDIOLOGY [address] | [address]PER[address] | | | | | [place], | [place], [place] | | | | | [place] [address] | [address] | | | | | [phone] | | | +--------+ + + + [...] W | | | | | | [place], | | | | | | [place] [address] | | | | | | [phone] | | | | | | | | +--------+ + + + + | 05/01/ | Procedure | Cardiology | | | | 2019 | visit | | | | +--------+ + + + + | 05/01/ | Office | Cardiology | Silvia, | | | 2019 | Visit | | [address] | | | | | | [place], | | | | | | [place] [address] | | | | | | [phone] | | | | | | | | +--------+ + + + + | 05/21/ | Implant | Cardiology | Daljit Singletary, | Remote Device | | 2019 | Monitor | | [address] | Interrogation | | | | | [place], | (Primary Dx); | | | | | [place] [address] | Pacemaker; | | | | | [phone] | Sinoatrial node | | | | | | dysfunction (HCC) | | | | | | with symptomatic | | | | | | bradycardia | +--------+ + + + + documented as of this encounter Visit Diagnoses Not on filedocumented in this encounter"
--- OUTSIDE RECORDS SUMMARY | ~2020-04-13 | XMS | Encounter Summary ---
Demographics + + + | Address | [address] | | | [place] [address] | + + + | Home Phone [...] Providers + +------+ + | Care Assembler Engine Name | Role | Phone | + +------+ + PCP | Unavailable | + +------+ + Encounter Details +--------+ + + + + | Date | Type | Department | Care Team | Description | +--------+ + + + + | 12/01/ | Hospital | [facility] | | | | 1997 | Encounter | MED CTR EMERGENCY | | | | | | CENTER [address] | | | | | | [place] | | | | | | [address] | | | | | | [phone] | | | +--------+ + + + [...] | | | | | | [place] [address] | | | | | | [phone] | | | | | | | [...] | | | | | | [place] [address] | | | | | | [phone] | | | | | | | | +--------+ + + + + | 05/21/ | Implant | Cardiology | Daljit Singletary, | Remote Device | 2019 | Monitor | | [address] [place] | Interrogation | | | | | [place], | (Primary Dx); | | | | | [place] [address] | Pacemaker; | | | | | [phone] | Sinoatrial node | | | | | | dysfunction (HCC) | | | | | | with symptomatic | | | | | | bradycardia | +--------+ + + + + documented as of this encounter Visit Diagnoses Not on filedocumented in this encounter"
--- OUTSIDE RECORDS SUMMARY | ~2020-04-13 | XMS | Encounter Summary ---
Demographics + + + | Address | [address] | | | [place] [address] | + + + | Home Phone [...] Providers + +------+ + | Care Heel Former Name | Role | Phone | [...] 2019 | | GASTROENTEROLOGY | [address], [place] | | | | | [address] [place] | [address] [place], [place] | | | | | [address] [place], [place] | [address] | | | | | [address] | | | | | | [phone] | | | +--------+ + + + [...] | | | | | | [place] [address] | | | | | | [phone] | | | | | | | | +--------+ + + + + | 05/01/ | Procedure | Cardiology | | | | 2019 | visit | | | | +--------+ + + + + | 05/01/ | Office | Cardiology | [place]via, | | | 2019 | Visit | | [address] | | | | | | [place], | | | | | | [place] [address] | | | | | | [phone] | | | | | | | | +--------+ + + + + | 05/21/ | Implant | Cardiology | Daljit Singletary, | Remote Device | 2019 | Monitor | | MD [address] | Interrogation | | | | | [place], | (Primary Dx); | | | | | [place] [address] | Pacemaker; | | | | | [phone] | Sinoatrial node | | | | | | dysfunction (HCC) | | | | | | with symptomatic | | | | | | bradycardia | +--------+ + + + + documented as of this encounter Visit Diagnoses Not on filedocumented in this encounter"
--- OUTSIDE RECORDS SUMMARY | ~2020-04-13 | XMS | Encounter Summary ---
Demographics + + + | Address | [address] | | | [place] [address] | + + + | Home Phone [...] Providers + +------+ + | Care Shipping Inspector Name | Role | Phone | + +------+ + PCP | Unavailable | + +------+ + Encounter Details +--------+ + + + + | Date | Type | Department | Care Team | Description | +--------+ + + + + | 10/26/ | Hospital | [facility] | | | | 1994 | Encounter | MED CTR EMERGENCY | | | | | | CENTER [address] | | | | | | [place] | | | | | | [address] | | | | | | [phone] | | | +--------+ + + + [...] | | | | | | [place] [address] | | | | | | [phone] | | | | | | | | +--------+ + + + + | 05/01/ | Procedure | Cardiology | | | | 2019 | visit | | | | +--------+ + + + + | 05/01/ | Office | Cardiology | Silvia, | | | 2019 | Visit | | [address] | | | | | | [place], | | | | | | [place] [address] | | | | | | [phone] | | | | | | | | +--------+ + + + + | 05/21/ | Implant | Cardiology | Daljit Singletary, | Remote Device | 2019 | Monitor | | [address] [place] | Interrogation | | | | | [place], | (Primary Dx); | | | | | [place] [address] | Pacemaker; | | | | | [phone] | Sinoatrial node | | | | | | dysfunction (HCC) | | | | | | with symptomatic | | | | | | bradycardia | +--------+ + + + + documented as of this encounter Visit Diagnoses Not on filedocumented in this encounter"
--- OUTSIDE RECORDS SUMMARY | ~2020-04-13 | XMS | Encounter Summary ---
Demographics + + + | Address | [address] | | | [place] [address] | + + + | Home Phone [...] Providers + +------+ + | Care Credit Rating Inspector Name | Role | Phone | [...] [place] | | | | | | [address] | | | | | | [phone] | | | +--------+ + + + [...] | | | | | | [place] [address] | | | | | | [phone] | | | | | | | [...] | | | | | | [place] [address] | | | | | | [phone] | | | | | | | | +--------+ + + + + | 05/21/ | Implant | Cardiology | Daljit Singletary, | Remote Device | | 2019 | Monitor | | [facility] | Interrogation | | | | | [address] [place], | (Primary Dx); | | | | | [place] [address] | Pacemaker; | | | | | [phone] | Sinoatrial node | | | | | | dysfunction (HCC) | | | | | | with symptomatic | | | | | | bradycardia | +--------+ + + + + documented as of this encounter Visit Diagnoses Not on filedocumented in this encounter"
--- OUTSIDE RECORDS SUMMARY | ~2020-04-13 | XMS | Encounter Summary ---
Demographics + + + | Address | [address] | | | [place] [address] | + + + | Home Phone [...] Providers + +------+ + | Care Manager Retail Store Name | Role | Phone | + [...] + + | 12/19/ | Telephone | [facility] | Kirk French | Triage (chronic IBS) | | 2020 | | [facility] | MD Brea [address] | | | | | [facility] [address] | [address] | | | | | [address] | [place] [address] | | | | | [place], [place] | [phone] | | | | | [address] | | | | | | [phone] | | | +--------+ + + + [...] | | | | | | [place] [address] | | | | | | [phone] | | | | | | | | +--------+ + + + + | 05/01/ | Procedure | Cardiology | | | | 2019 | visit | | | | +--------+ + + + + | 05/01/ | Office | Cardiology | [place], | | | 2019 | Visit | | PARISA [place] [address] | | | | | | [place], | | | | | | [place] [address] | | | | | | [phone] | | | | | | | | +--------+ + + + + | 05/21/ | Implant | Cardiology | Daljit Singletary, | Remote Device | 2019 | Monitor | | [address] [facility] | Interrogation | | | | | [place], | (Primary Dx); | | | | | [place] [address] | Pacemaker; | | | | | [phone] | Sinoatrial node | | | | | | dysfunction (HCC) | | | | | | with symptomatic | | | | | | bradycardia | +--------+ + + + + documented as of this encounter Visit Diagnoses Not on filedocumented in this encounter"
--- OUTSIDE RECORDS SUMMARY | ~2020-04-13 | XMS | Encounter Summary ---
Demographics + + + | Address | [address] | | | [place] [address] | + + + | Home Phone [...] Team Providers + +------+ + | Care Publications Inspector Name | Role | Phone | [...] + + | 02/21/ | Office | [facility] | [place], | Coronary artery | | 2019 | Visit | CARDIOLOGY [address] | [place] [address] | disease involving | | | | [place], | [place], | [place] coronary | | | | [place] [address] | [place] [address] | artery of [place] creek | | | | [phone] | [phone] | heart without angina | | | [...] of non-critical coronary artery d isease involving [place] coronary artery of [place] heart without angina pectoris, essential h ypertension, [...] stay active. 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 He has not had any [...] Preventative health care Coronary artery disease involving [place] coronary artery of [place] heart without angina pectoris Cannabis abuse, daily [...] 3RD DOSE, CALL 911 100 tablet 3 Trail-3 Fatty Acids (SALMON OIL-1000 PO) CAPS, one [...] was found Confirmed by ANGELA MARADIAGA MD ([id number]) on 01/03/2019 8:10:39 PM LAB RESULTS reviewed [...] BNP 15 01/02/2019 I reviewed records from [facility] for angiogram results on 019 which is summarized in the HPI. RESULTS- I reviewed reports from [facility]: No results found. Left heart [...] ASSESSMENT: 1. Non-critical Coronary artery disease involving [place] coronary artery of [place] heart [facility] angina pectoris: A.Normal exercise sestamibi [...] [facility] on 01/30[facility]2013.Patient had spontaneous PVC's fro [...] [facility]. B. [...] this chart may have been created with [email or web address] voice recognition software. Occasi onal wrong-word or [...] W | | | | | | [place], | | | | | | [place] [address] | | | | | | [phone] | | | | | | | | +--------+ + + + + | 05/01/ | Procedure | Cardiology | | | | 2019 | visit | | | | +--------+ + + + + | 05/01/ | Office | Cardiology | Silvia, | | | 2019 | Visit | | [address] | | | | | | [place], | | | | | | [place] [address] | | | | | | [phone] | | | | | | | | +--------+ + + + + | 05/21/ | Implant | Cardiology | Daljit Singletary, | Remote Device | | 2019 | Monitor | | [address] [facility] | Interrogation | | | | | [place], | (Primary Dx); | | | | | [place] [address] | Pacemaker; | | | | | [phone] | Sinoatrial node | | | | | | dysfunction (HCC) | | | | | | with symptomatic | | | | | | bradycardia | +--------+ + + + + documented as of this encounter Visit Diagnoses + + | Diagnosis | + + | Coronary artery disease involving dry [place] coronary artery of dry [place] heart without | | angina pectoris - Primary | + + | Symptomatic PVCs Other premature beats | + + | Essential hypertension Unspecified essential hypertension | + + documented in this encounter
--- OUTSIDE RECORDS SUMMARY | ~2020-04-13 | XMS | Encounter Summary ---
Demographics + + + | Address | [address] | | | [place] [address] | + + + | Home Phone [...] Providers + +------+ + | Care Manager Bilingual Name | Role | Phone | + [...] | [facility] [address] | [address] | remote) | | | | [place], | [place], | | | | | [place] [address] | [place] [address] | | | | | [phone] | [phone] | | | | | | | [...] | | | | | | [place] [address] | | | | | | [phone] | | | | | | | | +--------+ + + + + | 05/01/ | Procedure | Cardiology | | | | 2019 | visit | | | | +--------+ + + + + | 05/01/ | Office | Cardiology | [place], | | | 2019 | Visit | | [address] | | | | | | [place], | | | | | | [place] [address] | | | | | | [phone] | | | | | | | | +--------+ + + + + | 05/21/ | Implant | Cardiology | Daljit Singletary, | Remote Device | 2019 | Monitor | | MD [address] | Interrogation | | | | | [place], | (Primary Dx); | | | | | [place] [address] | Pacemaker; | | | | | [phone] | Sinoatrial node | | | | | | dysfunction (HCC) | | | | | | with symptomatic | | | | | | bradycardia | +--------+ + + + + documented as of this encounter Visit Diagnoses Not on filedocumented in this encounter"
--- OUTSIDE RECORDS SUMMARY | ~2020-04-13 | XMS | Encounter Summary ---
Demographics + + + | Address | [address] | | | [place] [address] | + + + | Home Phone [...] Team Providers + +------+ + | Care Scholarship Counselor Name | Role | Phone | + +------+ + PCP | Unavailable | + +------+ + Encounter Details +--------+ + + + + | Date | Type | Department | Care Team | Description | +--------+ + + + + | 09/29/ | Hospital | [facility] | | | | 1995 | Encounter | MED CTR EMERGENCY | | | | | | [place] [address] | | | | | | [place] | | | | | | [address] | | | | | | [phone] | | | +--------+ + + + [...] | | | | | | [place] [address] | | | | | | [phone] | | | | | | | [...] | | | | | | [place] [address] | | | | | | [phone] | | | | | | | | +--------+ + + + + | 05/21/ | Implant | Cardiology | Dalijt Singletary, | Remote Device | 2019 | Monitor | | [address] [place] | Interrogation | | | | | [place], | (Primary Dx); | | | | | [place] [address] | Pacemaker; | | | | | [phone] | Sinoatrial node | | | | | | dysfunction (HCC) | | | | | | with symptomatic | | | | | | bradycardia | +--------+ + + + + documented as of this encounter Visit Diagnoses Not on filedocumented in this encounter"
--- OUTSIDE RECORDS SUMMARY | ~2020-04-13 | XMS | Encounter Summary ---
Demographics + + + | Address | [address] [place] [address] [address] | | | [place] [address] | + + + | Home Phone [...] [place] | | | | | [address] | | + + + + + Care Team Providers + +------+ + | Care American History Teacher Name | Role | Phone | [...] | | 2019 | | Center at [facility] [address] | Gastroenterology | Gastroenterology | | | | Kaylah Crane | | | | | | Mailcode: Arma | | | | | | [facility] and | | | | | | [place] [address] | | | | | | [place], [place] | | | | | | [address] | | | | | | [phone] | | | +--------+ + + + [...]
--- OUTSIDE RECORDS SUMMARY | ~2020-04-13 | XMS | Encounter Summary ---
Demographics + + + | Address | [address] | | | [place] [address] | + + + | Home Phone [...] + +------+ + | Care Automobile Sales Representative Name | Role | Phone [...] | 07/30/ | Telephone | [facility] [place] [facility] | Michael Amanda, | Results | | 2013 | | [facility] | DO [address] | | | | | [address] | [place] | | | | | [place] | [address] | | | | | [address] | | | | | | [phone] | | | +--------+ + + + [...] W | | | | | | [place], | | | | | | [place] [address] | | | | | | [phone] | | | | | | | | +--------+ + + + + | 05/01/ | Procedure | Cardiology | | | | 2019 | visit | | | | +--------+ + + + + | 05/01/ | Office | Cardiology | Silvia, | | | 2019 | Visit | | PARISA Vernon [address] | | | | | | [place], | | | | | | [place] [address] | | | | | | [phone] | | | | | | | | +--------+ + + + + | 05/21/ | Implant | Cardiology | Daljit Singletary, | Remote Device | 2019 | Monitor | | MD Chiquis Oro | Interrogation | | | | | [place], | (Primary Dx); | | | | | [place] [address] | Pacemaker; | | | | | [phone] | Sinoatrial node | | | | | | dysfunction (HCC) | | | | | | with symptomatic | | | | | | bradycardia | +--------+ + + + + documented as of this encounter Visit Diagnoses Not on filedocumented in this encounter"
--- OUTSIDE RECORDS SUMMARY | ~2020-04-13 | XMS | Encounter Summary ---
Demographics + + + | Address | [address] | | | [place] [address] | + + + | Home Phone [...] Providers + +------+ + | Care Learning Manager Name | Role | Phone | [...] | (Fax) | | | | | [address] | | | | | | [phone] | | | +--------+ + + + [...] | | | | | | [place] [address] | | | | | | [phone] | | | | | | | | +--------+ + + + + | 05/01/ | Procedure | Cardiology | | | | 2019 | visit | | | | +--------+ + + + + | 05/01/ | Office | Cardiology | Silvia, | | | 2019 | Visit | | PARISA Vernon [address] | | | | | | [place], | | | | | | [place] [address] | | | | | | [phone] | | | | | | | | +--------+ + + + + | 05/21/ | Implant | Cardiology | Daljit Singletary, | Remote Device | | 2019 | Monitor | | [address] [place] | Interrogation | | | | | [place], | (Primary Dx); | | | | | [place] [address] | Pacemaker; | | | | | [phone] | Sinoatrial node | | | | | | dysfunction (HCC) | | | | | | with symptomatic | | | | | | bradycardia | +--------+ + + + + documented as of this encounter Visit Diagnoses Not on filedocumented in this encounter"
--- OUTSIDE RECORDS SUMMARY | ~2020-04-13 | XMS | Encounter Summary ---
Demographics + + + | Address | [address] | | | [place] [address] | + + + | Home Phone [...] Team Providers + +------+ + | Care Control Engineer Name | Role | Phone | + +------+ + | Kirk French MD | PCP | | + +------+ + Encounter Details +--------+ + + + + | Date | Type | Department | Care Team | Description | +--------+ + + + + | 08/10/ | Orders Only | [facility] K[facility] | [place], | Mixed hyperlipidemia | | 2016 | | [facility] LAB[facility] | PARISA Vernon [address] | (Primary Dx) | | | | [address] [place] | [place], | | | | | [place] | [place] [address] | | | | | [address] | [phone] | | | | | [phone] | | | +--------+ + + + [...] | | | | | | [place] [address] | | | | | | [phone] | | | | | | | [...] | | | | | | [place] [address] | | | | | | [phone] | | | | | | | | +--------+ + + + + | 05/21/ | Implant | Cardiology | Daljit Singletary, | Remote Device | | 2020 | Monitor | | [address] [facility] | Interrogation | | | | | [place], | (Primary Dx); | | | | | [place] [address] | Pacemaker; | | | | | [phone] | Sinoatrial node | | | | [...]
--- OUTSIDE RECORDS SUMMARY | ~2020-04-13 | XMS | Encounter Summary ---
Demographics + + + | Address | [address] | | | [place] [address] | + + + | Home Phone [...] Providers + +------+ + | Care Quill Winder Name | Role | Phone | [...] [address] | | | | | [place], | [place], | | | | | [place] [address] | [place] [address] | | | | | [phone] | [phone] | | | | | | | [...] | | | | | | [place], | | | | | | [place] [address] | | | | | | [phone] | | | | | | | | +--------+ + + + + | 05/01/ | Procedure | Cardiology | | | | 2019 | visit | | | | +--------+ + + + + | 05/01/ | Office | Cardiology | Silvia, | | | 2019 | Visit | | PARISA [address] | | | | | | [place], | | | | | | [place] [address] | | | | | | [phone] | | | | | | | | +--------+ + + + + | 05/21/ | Implant | Cardiology | Daljit Singletary, | Remote Device | 2019 | Monitor | | MD [address] [place] | Interrogation | | | | | [place], | (Primary Dx); | | | | | [place] [address] | Pacemaker; | | | | | [phone] | Sinoatrial node | | | | | | dysfunction (HCC) | | | | | | with symptomatic | | | | | | bradycardia | +--------+ + + + + documented as of this encounter Visit Diagnoses Not on filedocumented in this encounter"
--- OUTSIDE RECORDS SUMMARY | ~2020-04-13 | XMS | Encounter Summary ---
Demographics + + + | Address | [address] | | | [place] [address] | + + + | Home Phone [...] Providers + +------+ + | Care Car Head Liner Installer Name | Role | Phone | + +------+ + | Michael Amanda DO | PCP | | + +------+ + Encounter Details +--------+ + + + + | Date | Type | Department | Care Team | Description | +--------+ + + + + | 04/03/ | Hospital | [facility] | Jay Gambino MD | | | 2012 - | Encounter | [facility] | [address] | | | | | CARDIAC TRANSPLANT | [address] [place] | | | 04/04/ | | [address] | [place] [address] | | | 2012 | | [place] | [phone] | | | | | [address] | | | | | | [phone] | | | +--------+ + + + [...] 1960 ADMISSION DATE: 04/03/2013 DISCHARGE DATE: 04/04/2013 [id number] / [id number] ADMISSION DIAGNOSES: 1. Symptomatic premature ventricular contractions [...] study and ablati on. MOE GAY ADM:04/03/13 [id number] 04/04/13 [place] DISCHARGE SUMMARY [id number] [facility] PARISA Hughes [facility] MD Meena Pleitez THIS REPORT IS CONFIDENTIAL AND NOT TO BE RELEASED WITHOUT PROPER AUTHORIZATION. [facility] Mr. Gay was taken to the [...] 180 mg once daily. MOE GAY ADM:04/03/13 [id number] 04/04/13 DIS [place] DISCHARGE SUMMARY [id number] [facility] PARISA Hughes [facility] MD Meena Pleitez THIS REPORT IS CONFIDENTIAL AND NOT TO BE RELEASED WITHOUT PROPER AUTHORIZATION. [facility] 5. Docusate sodium 2 tablets once daily. 6. Marinol 10 mg twice daily. 7. Metoprolol succinate 200 mg once daily. 8. Oxycodone 10 mg 10 mg oral as needed. 9. Oxycodone 30 mg oral twice daily. 10. Pravastatin 40 mg at bedtime. 11. Promethazine 25 mg as needed. 12. Ranitidine 1 to 2 tablets once daily. 13. Socorro oil 2 tablets twice daily. 14. Valacyclovir 500 mg once daily. There were no new medications or medication dosage changes at time of discharge. PLAN: 1. Mr. Gay will be discharged home on medications as noted above, including his usual m edications of diltiazem and metoprolol. 2. He will be seen and followed by Dr. Gambino on 16 at 9:00 a.m. at [facility], [address]. 3. He will contact our office earlier than scheduled appointment should he have any diffic ulty prior to that time. PARISA Hughes MD A P RICHIE/med #[id number] cc: MD Dona Pleitez ARNP Suwong Wongsuwan, MD Electronically Signed 04/12/13 1400 PARISA Hughes Electronically Signed 05/22/13 1245 Jay Gambino MD MOE GAY ADM:04/03/13 [id number] 04/04/13 DIS [place] DISCHARGE SUMMARY [id number] [facility] PARISA Hughes ES B [facility] Jay Gambino MD R THIS REPORT IS CONFIDENTIAL AND NOT TO BE RELEASED WITHOUT PROPER AUTHORIZATION.Electronica lly signed by Jael Brown at 05/22/2013 1:25 PM Dona Grossman ARNP - 04/04/2013 9:05 AM PDT PATIENT NAME: MOE GAY Sex/Age: M / 53Y : 1960 ADMISSION DATE: 04/03/2013 DISCHARGE DATE: 04/04/2013 [id number] / [id number] ADMISSION DIAGNOSES: 1. Symptomatic premature ventricular contractions [...] and ablati on. MOE GAY Jaimee ADM:04/03/13 [id number] 04/04/13 [place] DISCHARGE SUMMARY [id number] [facility] PARISA Hughes [facility] MD Meena Pleitez THIS REPORT IS CONFIDENTIAL AND NOT TO BE RELEASED WITHOUT PROPER AUTHORIZATION. [facility] Mr. Gay was taken to the [...] 180 mg once daily. MOE GAY ADM:04/03/13 [id number] 04/04/13 DIS [place] DISCHARGE SUMMARY [id number] [facility] PARISA Hughes [facility] MD Meena Pleitez THIS REPORT IS CONFIDENTIAL AND NOT TO BE RELEASED WITHOUT PROPER AUTHORIZATION. [facility] 5. Docusate sodium 2 tablets once daily. 6. Marinol 10 mg twice daily. 7. Metoprolol succinate 200 mg once daily. 8. Oxycodone 10 mg 10 mg oral as needed. 9. Oxycodone 30 mg oral twice daily. 10. Pravastatin 40 mg at bedtime. 11. Promethazine 25 mg as needed. 12. Ranitidine 1 to 2 tablets once daily. 13. Socorro oil 2 tablets twice daily. 14. Valacyclovir 500 mg once daily. There were no new medications or medication dosage changes at time of discharge. PLAN: 1. Mr. Gay will be discharged home on medications as noted above, including his usual m edications of diltiazem and metoprolol. 2. He will be seen and followed by Dr. Gambino on 16 at 9:00 a.m. at [facility], [address]. 3. He will contact our office earlier than scheduled appointment should he have any diffic ulty prior to that time. PARISA Hughes MD A P IRCHIE/med #[id number] cc: MD Dona Pleitez ARNP Suwong Wongsuwan, MD Electronically Signed 04/12/13 1400 PARISA Hughes MOE GAY ADM:04/03/13 [id number] 04/04/13 DIS [place] DISCHARGE SUMMARY [id number] [facility] PARISA Hughes [facility] MD Meena Pleitez THIS REPORT [...] + + + +---------+ + + | [place]-3 Fatty | CAPS, one capsule by | [...] | | | | | | [place] [address] | | | | | | [phone] | | | | | | | | +--------+ + + + + | 05/01/ | Procedure | Cardiology | | | | 2019 | visit | | | | +--------+ + + + + | 05/01/ | Office | Cardiology | Silvia, | | | 2019 | Visit | | PARISA Vernon [address] | | | | | | [place], | | | | | | [place] [address] | | | | | | [phone] | | | | | | | | +--------+ + + + + | 05/21/ | Implant | Cardiology | Daljit Singletary, | Remote Device | | 2019 | Monitor | | MD [address] [place] | Interrogation | | | | | [place], | (Primary Dx); | | | | | [place] [address] | Pacemaker; | | | | | [phone] | Sinoatrial node | | | | [...] + + + | Glucose | 94Comment: Kenyan | 65 - 99 mg/dL | [facility] [...] + | [facility] | [address] | [place] [address] | | | [facility] | | | | | [...] + + | YESSY JONES | [address] | [place] [address] | | | [facility]ART [facility] | | | | | LABORATORY | | | | + + + + + documented in this encounter Visit Diagnoses Not on filedocumented in this encounter"
--- OUTSIDE RECORDS SUMMARY | ~2020-04-13 | XMS | Encounter Summary ---
Demographics + + + | Address | [address] | | | [place] [address] | + + + | Home Phone [...] + +------+ + | Care Income Tax Auditor Name | Role | Phone | + +------+ + | Michael Amanda DO | PCP | | + +------+ + Encounter Details +--------+ + + + + | Date | Type | Department | Care Team | Description | +--------+ + + + + | 05/11/ | Hospital | [facility] | Conversion | Lumbago; | | 2013 | Encounter | MEDICAL CENTER XRAY | Transaction, | Postlaminectomy | | | | [address] | Provider Unknown | syndrome, cervical | | | | [place], [place] | | region; Cervicalgia | | | | [address] | (Fax) | | | | | [phone] | | | +--------+ + + + [...] 1147 Date of Service: 05/11/141145 Status: Signed Utility Agent: Christine Mcgraw Report called to Brittany morejon [...] | | | | | | [place] [address] | | | | | | [phone] | | | | | | | [...] | | | | | | [place] [address] | | | | | | [phone] | | | | | | | | +--------+ + + + + | 05/21/ | Implant | Cardiology | Daljit Singletary, | Remote Device | 2019 | Monitor | | MD [address] [place] | Interrogation | | | | | [place], | (Primary Dx); | | | | | [place] [address] | Pacemaker; | | | | | [phone] | Sinoatrial node | | | | [...]
--- OUTSIDE RECORDS SUMMARY | ~2020-04-13 | XMS | Encounter Summary ---
Demographics + + + | Address | [address] | | | [place] [address] | + + + | Home Phone [...] Providers + +------+ + | Care Industrial Waste Inspector Name | Role | Phone | [...] + + | 05/14/ | Office | [facility] | [place], | Coronary artery | | 2013 | Visit | CARDIOLOGY [address] | PARISA [address] | disease (Primary | | | | [place], | [place], | Dx); Hypertension; | | | | [place] [address] | [place] [address] | Hyperlipidemia; | | | | [phone] | [phone] | Syncope; Other chest | | | [...] needed for Chest pain. 25 tablet 12 [place]-3 Fatty Acids (SALMON OIL-1000 PO) CAPS, one [...] completely be ruled out. D. [facility] 12/25/13, shows noncritical coronary artery disease, mild [...] exercising. He is in class II of [employer] functional class. There are no [...] to go back in 3 days to [place] for an attempt of ablation under general [...] palpitations.. He is in class II of [employer] functional class. There are no [...] bring in his blood pressure logs from [facility] 5. Lightheadedness and dizziness/ presyncope: A. [...] made to ensure accuracy; however, inadvertent computerized agriculture inspector errors may be pre sent. Electronically [...] | | | | | | [place] [address] | | | | | | [phone] | | | | | | | [...] | | | | | | [place] [address] | | | | | | [phone] | | | | | | | | +--------+ + + + + | 05/21/ | Implant | Cardiology | Daljit Singletary, | Remote Device | | 2019 | Monitor | | [address] [facility] | Interrogation | | | | | [place], | (Primary Dx); | | | | | [place] [address] | Pacemaker; | | | | | [phone] | Sinoatrial node | | | | [...] of unspecified type of | | vessel, kiana or graft | + + | Hypertension Unspecified essential hypertension | + + | Hyperlipidemia Other and unspecified hyperlipidemia | + + | Syncope Syncope and collapse | + + | Other chest pain | + + | Chest pain Chest pain, unspecified | + + documented in this encounter
--- OUTSIDE RECORDS SUMMARY | ~2020-04-13 | XMS | Encounter Summary ---
Demographics + + + | Address | [address] | | | [place] [address] | + + + | Home Phone [...] Providers + +------+ + | Care Distribution Specialist Name | Role | Phone | [...] Refill | | 2013 | | [facility] [place] | DO [address] | | | | | [address] | [place] | | | | | [place] | [address] | | | | | [address] | | | | | | [phone] | | | +--------+--------+ + + + [...] | | | | | | [place] [address] | | | | | | [phone] | | | | | | | | +--------+ + + + + | 05/01/ | Procedure | Cardiology | | | | 2019 | visit | | | | +--------+ + + + + | 05/01/ | Office | Cardiology | Silvia, | | | 2019 | Visit | | PARISA Vernno W | | | | | | [place], | | | | | | [place] [address] | | | | | | [phone] | | | | | | | | +--------+ + + + + | 05/21/ | Implant | Cardiology | Daljit Singletary, | Remote Device | | 2019 | Monitor | | [facility] | Interrogation | | | | | [place], | (Primary Dx); | | | | | [place] [address] | Pacemaker; | | | | | [phone] | Sinoatrial node | | | | | | dysfunction (HCC) | | | | | | with symptomatic | | | | | | bradycardia | +--------+ + + + + documented as of this encounter Visit Diagnoses Not on filedocumented in this encounter"
--- OUTSIDE RECORDS SUMMARY | ~2020-04-13 | XMS | Encounter Summary ---
Demographics + + + | Address | [address] | | | [place] [address] | + + + | Home Phone [...] | Aneurysmal | [place], | [address] [place] | | | | | dilatation | PARISA Solis | [place], | | | | | (HCC) | [address] | [place] | | | | | Procedures | [place] | [address] | | | | | ECHO | [place], | Phone: | | | | | Complete | [place] | [phone] | | | | | | [address] | Fax: | | | | | | Phone: | [phone] | | | | | | [phone] | | | | | | | Fax: | | | | | | | [phone] | | +--------+--------+ + + + + Encounter Details +--------+ + + + + | Date | Type | Department | Care Team | Description | +--------+ + + + + | 11/16/ | Orders Only | [facility] [place] | [place], | Aneurysmal | | 2017 | | CARDIOLOGY [address] | PARISA Solis [address] | dilatation (HCC) | | | | [place], | [place], | (Primary Dx) | | | | [place] [address] | [place] [address] | | | | | [phone] | [phone] | | | | | | | [...] | | | | | | [place] [address] | | | | | | [phone] | | | | | | | [...] | | | | | | [place] [address] | | | | | | [phone] | | | | | | | | +--------+ + + + + | 05/21/ | Implant | Cardiology | Daljit Singletary, | Remote Device | | 2019 | Monitor | | [address] [place] | Interrogation | | | | | [place], | (Primary Dx); | | | | | [place] [address] | Pacemaker; | | | | | [phone] | Sinoatrial node | | | | [...] Patient Name VICTOR HUGO | | | [place] Room Number KIRK Patient | | | [id number] Date of Study 11/16/2017 Number | | | Visit Number [id number] | | | Referring Physician GURJIT TROY Number | | | NORMA SOLIS Date | | | of 1960 Can Maker ROMAINE | | | MARISSA TIPTON Age 57 year(s) Interpreting | | | GURJIT TROY | | | Certified Pharmacist Assistant DALJIT SINGLETARY, | | | MD | | | Gender Male Nurse | | | Stress Chief Radiologic Technologist Procedure Type of | | | Study [...] | | | EF | | | Ymyibyhbx71% Left Ventricle Diastolic Dimension: 5.12 cm | [...] Volume: 46.33 ml | | | EF Eogprtbii48% | | | | | | Left [...] Rad Results In - 11/16/2017 1:48 PM [facility] Transthoracic Echocardiography Report | | (TTE) Demographics Patient Name VICTOR HUGO BARRY Room Number KIRK | | Patient [id number] Date of Study 11/16/2017 Number Visit Number | | [id number] Referring Physician GURJIT TROY | | Number NORMA SOLIS Date of | | 1960 Can Maker ROMAINE TIPTON RDCS Age 57 year(s) | | Interpreting GURJIT TROY Certified Pharmacist Assistant | | DALJIT SINGLETARY MD | | [...] LA Volume: 46.33 ml | | EF Csroonhrf28% Left Ventricle Diastolic Dimension: 5.12 cm Systolic [...] LA Volume: 46.33 ml | | EF Fpqvdmvnw07% | | | | Left Ventricle | [...]
--- OUTSIDE RECORDS SUMMARY | ~2020-04-13 | XMS | Encounter Summary ---
Demographics + + + | Address | [address] | | | [place] [address] | + + + | Home Phone [...] Team Providers + +------+ + | Care Groutman Name | Role | Phone | + [...] | | | | CENTER [address] [place] | [place] | (Primary Dx) | | 07/28/ | | [place] | [address] | | | 2017 | | [address] | | | | | | [phone] | | | +--------+ + + + [...] sent through Care Everywhere.Chest Pain, Non cardiac ([place])documented in this encounter Medications at Time of [...] + + + +---------+ + + | [place]-3 Fatty | CAPS, one capsule by | [...] | | | | | | [place], | | | | | | [place] [address] | | | | | | [phone] | | | | | | | | +--------+ + + + + | 05/01/ | Procedure | Cardiology | | | | 2019 | visit | | | | +--------+ + + + + | 05/01/ | Office | Cardiology | [place], | | | 2019 | Visit | | PARISA Vernon W | | | | | | [place], | | | | | | [place] [address] | | | | | | [phone] | | | | | | | | +--------+ + + + + | 05/21/ | Implant | Cardiology | Daljit Singletary, | Remote Device | 2019 | Monitor | | [address] [place] | Interrogation | | | | | [place], | (Primary Dx); | | | | | [place] [address] | Pacemaker; | | | | | [phone] | Sinoatrial node | | | | [...] INFORMATION | RBUNILDA | Routin | | 07/27/2018 10:32 PM [...] W?MRN: | | | | | | [id number] | | | [id number] | | | his | | | [...] | | | ent/60 | | | [id number] | | | -5586- | | | [...] | | | St. | | | [place] | | | y | | | [...] | | | ext. | | | [address] | | | or go | | [...] | | | M.D. | | | Date Night Sitter | | | al | | | [...] + | [facility] | [address] | [place] | [phone] | | [facility] | | [address] | | | - LABORATORY | | [...] mL/min/1.73m2 | [facility] | | | [place] | RATE,ESTIMATED | | MEDICAL | | | | mL/min/1.53j1Dqpo than | | CENTER - | | [...] + | [facility] | [address] | [place] | [phone] | | [facility] | | [address] | | | - LABORATORY | | [...] + | [facility] | [address] | [place] | [phone] | | [facility] | | [address] | | | - LABORATORY | | [...] | | | | HIREN WINKLER, ANGELA ([id number]) | | | | | | on [...]
--- OUTSIDE RECORDS SUMMARY | ~2020-04-13 | XMS | Encounter Summary ---
Demographics + + + | Address | [address] | | | [place] [address] | + + + | Home Phone [...] + +------+ + | Care Director Of Institutional Giving Name | Role | Phone | [...] | | CENTER [address] | [place], [place] | (Primary Dx) | | | | [place], [place] | [address] | | | | | [address] | | | | | | [phone] | | | +--------+ + + + [...] + + + +---------+ + + | [place]-3 Fatty | CAPS, one capsule by | [...] | | | | | | [place] [address] | | | | | | [phone] | | | | | | | [...] | | | | | | [place] [address] | | | | | | [phone] | | | | | | | | +--------+ + + + + | 05/21/ | Implant | Cardiology | Daljit Singletary, | Remote Device | | 2019 | Monitor | | [address] [facility] | Interrogation | | | | | [place], | (Primary Dx); | | | | | [place] [address] | Pacemaker; | | | | | [phone] | Sinoatrial node | | | | [...] mL/min/1.73m2 | [facility] | | | [facility] | RATE,ESTIMATED | | MEDICAL | | | | mL/min/1.94s5Bijv than | | CENTER - | | [...] | appended report. These | | [facility] | | | | results have been [...] | [address] | [place], [place] | [phone] | | [facility] | | [address] | | | - LABORATORY | | [...] | | | | ANGELA MARADIAGA MD ([id number]) | | | | | | on [...] [address] | [place] | [phone] | | [facility] | | [address] | | | - LABORATORY | | [...] [address] | [place] | [phone] | | [facility] | | [address] | | | - LABORATORY | | [...]
--- OUTSIDE RECORDS SUMMARY | ~2020-04-13 | XMS | Encounter Summary ---
Demographics + + + | Address | [address] | | | [place] [address] | + + + | Home Phone [...] + +------+ + | Care Forest Fire Lookout Name | Role | Phone | + [...] pain | | 2017 | Encounter | [facility] | Transaction, | | | | | [address] | Provider Unknown | | | | | [address] [place], [place] | [phone] | | | | | [address] | | | | | | [phone] | Apolonia Ruano | | | | | | MD Shelly [address] | | | | | | [address] | | | | | | [place], [place] | | | | | | [address] | | | | | | [phone] | | | | | | | [...] | | | | | | [place] [address] | | | | | | [phone] | | | | | | | [...] | | | | | | [place] [address] | | | | | | [phone] | | | | | | | | +--------+ + + + + | 05/21/ | Implant | Cardiology | Daljit Singletary, | Remote Device | 2019 | Monitor | | [address] [facility] | Interrogation | | | | | [place], | (Primary Dx); | | | | | [place] [address] | Pacemaker; | | | | | [phone] | Sinoatrial node | | | | [...]
--- OUTSIDE RECORDS SUMMARY | ~2020-04-13 | XMS | Encounter Summary ---
Demographics + + + | Address | [address] | | | [place] [address] | + + + | Home Phone [...] + +------+ + | Care Skein Yarn Drier Name | Role | Phone | [...] Eva ROUSE | | | | | [place], [place] | [address] | | | | | [address] | [place] [address] | | | | | [phone] | [phone] | | | | | | | [...] W | | | | | | [place], | | | | | | [place] [address] | | | | | | [phone] | | | | | | | | +--------+ + + + + | 05/01/ | Procedure | Cardiology | | | | 2019 | visit | | | | +--------+ + + + + | 05/01/ | Office | Cardiology | Silvia, | | | 2019 | Visit | | PARISA [address] W | | | | | | [place], | | | | | | [place] [address] | | | | | | [phone] | | | | | | | | +--------+ + + + + | 05/21/ | Implant | Cardiology | Daljit Singletary, | Remote Device | 2019 | Monitor | | MD [address] [place] | Interrogation | | | | | [place], | (Primary Dx); | | | | | [place] [address] | Pacemaker; | | | | | [phone] | Sinoatrial node | | | | [...]
--- OUTSIDE RECORDS SUMMARY | ~2020-04-13 | XMS | Encounter Summary ---
Demographics + + + | Address | [address] [place] [address] [address] | | | [place] [address] | + + + | Home Phone [...] [place] | | | | | [address] | | + + + + + Care Team Providers + +------+ + | Care Squilgeer Name | Role | Phone | + [...] | | Bradycardia | | | | [place], [place] | | | | | | [address] | | | | | | [phone] | | | +--------+------+ + + + [...] | [facility] | | [facility] [address] | REGIONAL | | [place] [address] | LABORATORY | + + + + + + + + | Performing | Address | City/State/Zipcode | Phone Number | | Organization | | | | + + + + + | [facility] | [address] | [place] [address] | | | LABORATORY | | | [...] [facility] ([facility]) | | | [facility] [address] | | | [place] [address] | | + + + + + + + + | Performing | Address | City/State/Zipcode | Phone Number | | Organization | | | | + + + + + | [facility] | [address] | [place] [address] | | | LABORATORY | | | [...] | | | DEPARTMENT | | | [place] | | | OF | | | [...] DEPARTMENT OF | [address] | [place] [address] | | | PATHOLOGY | [address] | | | + + + + + documented in this encounter Visit Diagnoses + + | Diagnosis | + + | Chest pain Chest pain, unspecified | + + | Bradycardia Other specified cardiac dysrhythmias | + + documented in this encounter"
--- OUTSIDE RECORDS SUMMARY | ~2020-04-13 | XMS | Encounter Summary ---
Demographics + + + | Address | [address] | | | [place] [address] | + + + | Home Phone [...] Providers + +------+ + | Care Architectural Model Maker Name | Role | Phone [...] + + | 06/26/ | Office | [facility] | [place], | Diplopia (Primary | | 2012 | Visit | [facility] | [address] | Dx); Symptomatic | | | | [address] | [place] | PVCs; Hypertension | | | | [place], [place] | [address] | | | | | [address] | | | | | | [phone] | | | +--------+---------+ + + + [...] Double vision will affect your ability to clinician oncology distance. This means it will be harder [...] or, difficulty with vision, speech or walking [address] [place] [address]. All rights reserve d. This information is [...] visit in the [facility] on Wednesday or he developed double vision [...] double vision. He was evaluated by Dr Jefferson Davis and had a normal eye exam, nor [...] tablet by mouth Daily. 30 tablet 6 Humble-3 Fatty Acids (SALMON OIL-1000 PO) CAPS, one [...] | | | | | | [place] [address] | | | | | | [phone] | | | | | | | | +--------+ + + + + | 05/01/ | Procedure | Cardiology | | | 2019 | visit | | | | +--------+ + + + + | 05/01/ | Office | Cardiology | Silvia, | | | 2019 | Visit | | PARISA Vernon [address] | | | | | | [place], | | | | | | [place] [address] | | | | | | [phone] | | | | | | | | +--------+ + + + + | 05/21/ | Implant | Cardiology | Daljit Singletary, | Remote Device | 2019 | Monitor | | [place] [facility] | Interrogation | | | | | [place], | (Primary Dx); | | | | | [place] [address] | Pacemaker; | | | | | [phone] | Sinoatrial node | | | | [...] + | [facility] | [address] | [place] | [phone] | | [facility] | | [address] | | | - LABORATORY | | | | + + + + + | [facility] | [address] | [place] | | | [facility] | | [address] | | | - [...] + | [facility] | [address] | [place] | [phone] | | [facility] | | [address] | | | - LABORATORY | | | | + + + + + | [facility] | [address] | [place], [place] | | | [facility] | | [address], [place] | | | - LABORATORY | [...] + | [facility] | [address] | [place] | [phone] | | [facility] | | [address] | | | - LABORATORY | | | | + + + + + | [facility] | [address] | [place] | | | [facility] | | [id number] [place] [address] | | | - LABORATORY | | | | + + + + + documented in this encounter Visit Diagnoses + + | Diagnosis | + + | Diplopia - Primary | + + | Symptomatic PVCs Other premature beats | + + | Hypertension Unspecified essential hypertension | + + documented in this encounter
--- OUTSIDE RECORDS SUMMARY | ~2020-04-13 | XMS | Clinical Summary ---
Demographics + + + | Address | [address] | | | [place] [address] | + + + | Home Phone [...] Providers + +------+ + | Care Wage And Hour Investigator Name | Role | Phone | [...] | | | + + +--------+---+------+------+-------+ | Athena-3 Fatty | CAPS, one capsule by | [...] automatically from request for surgery | | [id number] | + + + + + | Diarrhea, unspecified type | 01/15/2020 | + + + + + | Overview: Added automatically from request for surgery | | [id number] | + + + + + | Unintentional weight loss | 01/15/2020 | + + + + + | Overview: Added automatically from request for surgery | | [id number] | + + + + + | Opioid type dependence, continuous | 01/15/2020 | + + + + + | Overview: Added automatically from request for surgery | | [id number] | + + + + + | Allergy to opioid analgesic | 01/15/2020 | + + + + + | Overview: Added automatically from request for surgery | | [id number] | + + + + + | [...] + | Overview: Lower back injury (From [facility]) 1980 1984 | + + [...] disease involving 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 Gambino at [facility] on 01/30/2013. Patient had spontaneous PVCs [...] back in 3 days to | | [place] for an attempt of ablation under general [...] IMPLANTED GENERATOR | | Medtronic DDD ADDR01 [id number] 06/14/09 RV LEAD Medtronic Active | | Bipolar CapSureFix 4076 [id number] 06/14/09 A LEAD Medtronic | | Active Bipolar CapSurFix 4076 [id number] 06/14/09 | + + + +---+ | [...] | Heart Cath, 02/29/2012, LVEF is 65%, [facility], Daljit Gemini, | | [facility] Myocardial Gated Stress Test, 05/25/2009, EF 53 | | % during rest and 52% during stress. [facility], | | [place], [place].Persantine Sestamibi Stress Test, 06/14/2008, LVEF is | | 60%, [facility], Daljit MorenowanL 12/25/13, shows noncritical | [...] Plan: Nonobstructive CAD noted | | on [facility] from 2013, no EKG changes, and [...] + + | Mother | | | [place] | | | | (Age | | [...] | | | | | | [place] [address] | | | | | | [phone] | | | | | | | [...] | | | | | | [place] [address] | | | | | | [phone] | | | | | | | | +--------+ + + + + | 05/21/ | Implant | Cardiology | Daljit Singletary, | Remote Device | 2019 | Monitor | | MD [place] | Interrogation | | | | | [place], | (Primary Dx); | | | | | [place] [address] | Pacemaker; | | | | | [phone] | Sinoatrial node | | | | [...] Left: | COOK | | 09/27/ | [id number] | | 32 - [id number]: | | Ureter | [employer] | | 2020 | / | | Qty: 1 on 04/13/2019 by | | | - CAM[place] | | | /[id number] | | Matthew Uriarte MD at | | | | | | 57 | | [facility] | | | | | | | [facility] | | | | | | [...] remote interrogation results. Data collected by Shabana Robeldo | | | MONROE Lama Presenting rhythm: [...] +--------+ +---------+--------+ | MEDICARE | MEDICA | [id number] | 01/21/20 | [phone] | | Medica | | | RE | | 01-Pre | 5 | | re | | | PART A | | sent | | | | | | AND B | | | | | | + +--------+ +--------+ +---------+--------+ | MEDICARE | MEDICA | [id number] | 01/21/20 | [phone] | | Medica | | | RE | | 01-Pre | 5 | | re | | | PART A | | sent | | | | | | AND B | | | | | | + +--------+ +--------+ +---------+--------+ | AARP | AARP | [id number] | | [phone] | | Indemn | | | MDCR | | 016-Pr | 0 | | ity | | | SUPPL | | esent | | | | + +--------+ +--------+ +---------+--------+ | AARP | AARP | [id number] | 11/22/19 | [phone] | | Indemn [...] Person | Self | [birth year] | [address] | | Kirk | cristo/Per | | 1959 | [phone] | Dr [place] | | | roxanne | | | 8 (Home) | [address] | + +--------+ +--------+ + + | Moe Sanchez | Person | Self | [birth year] | | [address] | | Kirk | al/Fam | | 1959 | [phone] | Dr [place] | | | roxanne | | | 8 (Home) | [address] | + +--------+ +--------+ + + | Moe Sanchez | Third | Self | [birth year] | | [address] | | Kirk | Green Party | | 1960 | [phone] | [address] [place] | | | [place] | | | [address] ([place]) | [address] | | | ity | | | | | + +--------+ +--------+ + + Advance Directives + + + + + | Type | Date Recorded | Patient | Explanation | | | | 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
--- OUTSIDE RECORDS SUMMARY | ~2020-04-13 | XMS | Encounter Summary ---
Demographics + + + | Address | [address] | | | [place] [address] | + + + | Home Phone [...] Team Providers + +------+ + | Care Submersible Pilot Name | Role | Phone | + +------+ + | Michael Amanda DO | PCP | | + +------+ + Encounter Details +--------+ + + + + | Date | Type | Department | Care Team | Description | +--------+ + + + + | 01/31/ | Hospital [facility] | Adrian Gutierrez MD | | | 2012 | Encounter | [facility] | [address] | | | | | EMERGENCY CENTER | [place], [place] | | | | | [address] | [address] | | | | | [place] | [phone] | | | | | [address] | | | | | | [phone] | | | +--------+ + + + [...] + + + +---------+ + + | [facility]-3 Fatty | CAPS, one capsule by [...] | | | | | | [place] [address] | | | | | | [phone] | | | | | | | | +--------+ + + + + | 05/01/ | Procedure | Cardiology | | | | 2019 | visit | | | | +--------+ + + + + | 05/01/ | Office | Cardiology | Silvia, | | | 2019 | Visit | | [address] W | | | | | | [place], | | | | | | [place] [address] | | | | | | [phone] | | | | | | | | +--------+ + + + + | 05/21/ | Implant | Cardiology | Daljit Singletary, | Remote Device | 2019 | Monitor | | MD Sim [place] | Interrogation | | | | | [place], | (Primary Dx); | | | | | [place] [address] | Pacemaker; | | | | | [phone] | Sinoatrial node | | | | [...] + + + | Exam Performed Location: [facility] [place] TWO-VIEW | MISCELANIOUS | | CHEST CLINICAL [...] | an acute cardiopulmonary process. S: SQ ([id number]) Signed by: | | | JAYNE SPEAR MD | | + + + + + | Procedure Note | + + | Kevin, Rad Conversion - 09/13/2013 10:25 PM PDT Exam Performed Location: [facility] | | [facility] CHESTCLINICAL INFORMATION:Shortness of | | breath.COMPARISON:None.FINDINGS:There is a left subclavian dual lead cardiac pacer. The | | heart sizeand mediastinal contours are normal. The pulmonary vasculature isnormal. No | | focal airspace opacities, pleural effusions, orpneumothorax. Cervical fusion hardware | | is noted. No acute osseousfindings.IMPRESSION:No evidence of an acute cardiopulmonary | | process.S: SQ ([id number]) Signed by: JAYNE SPEAR MD | |COMPARISON: [...] | | | | | |S: SQ ([id number]) Signed by: JAYNE SPEAR MD | + + + +---------+ + + | Performing | Address | City/State/Zipcode | Phone Number | | Organization | | | | + +---------+ + + | MISCELLANEOUS LAB | | | [phone] | + +---------+ + + | MISCELANIOUS LAB | | | [phone] | + +---------+ + + Troponin I [...] + | [facility] | [address] | [place] [address] | | | [facility] | [...] + + | [facility] | [address] | [place] [address] | | | [facility] | [...] + + | [facility] | [address] | [place] [address] | | | [facility] | [...] + + | [facility] | [address] | [place] [address] | | | [facility] | | | | | LABORATORY | | | | + + + + + | [facility] | | | | | [facility] | | | | | [...] + + | Glucose | 154 (H)Comment: Thai | 65 - 99 mg/dL | [facility] [...] + + | [facility] | [address] | [place] [address] | | | [facility] | | | | | LABORATORY | | | | + + + + + | [facility] | | | | | [facility]ART [facility] | | | | | LABORATORY | | | | + + + + + documented in this encounter Visit Diagnoses Not on filedocumented in this encounter"
--- OUTSIDE RECORDS SUMMARY | ~2020-04-13 | XMS | Encounter Summary ---
Demographics + + + | Address | [address] | | | [place] [address] | + + + | Home Phone [...] Team Providers + +------+ + | Care Filter Press Pumper Name | Role | Phone | [...] | CARDIOLOGY [address] | MD [address] [place] | | | | | [place], | [place], | | | | | [place] [address] | [place] [address] | | | | | [phone] | [phone] | | | | | | | [...] W | | | | | | [place], | | | | | | [place] [address] | | | | | | [phone] | | | | | | | | +--------+ + + + + | 05/01/ | Procedure | Cardiology | | | | 2019 | visit | | | | +--------+ + + + + | 05/01/ | Office | Cardiology | Silvia, | | | 2019 | Visit | | [address]ISA [address] W | | | | | | [place], | | | | | | [place] [address] | | | | | | [phone] | | | | | | | | +--------+ + + + + | 05/21/ | Implant | Cardiology | Daljit Singletary, | Remote Device | 2019 | Monitor | | MD Sim [address] [place] | Interrogation | | | | | [place], | (Primary Dx); | | | | | [place] [address] | Pacemaker; | | | | | [phone] | Sinoatrial node | | | | | | dysfunction (HCC) | | | | | | with symptomatic | | | | | | bradycardia | +--------+ + + + + documented as of this encounter Visit Diagnoses Not on filedocumented in this encounter"
--- OUTSIDE RECORDS SUMMARY | ~2020-04-13 | XMS | Encounter Summary ---
Demographics + + + | Address | [address] | | | [place] [address] | + + + | Home Phone [...] Team Providers + +------+ + | Care Tile Finisher Name | Role | Phone | [...] Refill | | 2012 | | [facility]IC[facility] | DO [address] | | | | | [address] | [place] | | | | | [place] | [address] | | | | | [address] | | | | | | [phone] | | | +--------+--------+ + + + [...] W | | | | | | [place], | | | | | | [place] [address] | | | | | | [phone] | | | | | | | | +--------+ + + + + | 05/01/ | Procedure | Cardiology | | | | 2019 | visit | | | | +--------+ + + + + | 05/01/ | Office | Cardiology | Silvia, | | | 2019 | Visit | | [place] W | | | | | | [place], | | | | | | [place] [address] | | | | | | [phone] | | | | | | | | +--------+ + + + + | 05/21/ | Implant | Cardiology | Daljit Singletary, | Remote Device | | 2019 | Monitor | | [facility] | Interrogation | | | | | [place], | (Primary Dx); | | | | | [place] [address] | Pacemaker; | | | | | [phone] | Sinoatrial node | | | | | | dysfunction (HCC) | | | | | | with symptomatic | | | | | | bradycardia | +--------+ + + + + documented as of this encounter Visit Diagnoses Not on filedocumented in this encounter"
--- OUTSIDE RECORDS SUMMARY | ~2020-04-13 | XMS | Encounter Summary ---
Demographics + + + | Address | [address] | | | [place] [address] | + + + | Home Phone [...] | | CARDIOLOGY [address] | MOBILE SECURITY SPECIALIST [address] | edema and chest | | | | [place], | [facility] [place] | pain) | | | | [place] [address] | [address] | | | | | [phone] | | | +--------+ + + + [...] | | | | | | [place] [address] | | | | | | [phone] | | | | | | | | +--------+ + + + + | 05/01/ | Procedure | Cardiology | | | | 2019 | visit | | | | +--------+ + + + + | 05/01/ | Office | Cardiology | Silvia, | | | 2019 | Visit | | [place] [address] | | | | | | [place], | | | | | | [place] [address] | | | | | | [phone] | | | | | | | | +--------+ + + + + | 05/21/ | Implant | Cardiology | Daljit Singletary, | Remote Device | | 2019 | Monitor | | MD [place] [place] | Interrogation | | | | | [place], | (Primary Dx); | | | | | [place] [address] | Pacemaker; | | | | | [phone] | Sinoatrial node | | | | | | dysfunction (HCC) | | | | | | with symptomatic | | | | | | bradycardia | +--------+ + + + + documented as of this encounter Visit Diagnoses Not on filedocumented in this encounter"
--- OUTSIDE RECORDS SUMMARY | ~2020-04-13 | XMS | Encounter Summary ---
Demographics + + + | Address | [address] | | | [place] [address] | + + + | Home Phone [...] Team Providers + +------+ + | Care Song Writer Name | Role | Phone | [...] + + | 08/04/ | Telephone | [facility] | [place], | Other (4 week event | | 2017 | | CARDIOLOGY [address] | [place] [address] | monitor ) | | | | [place], | [place], | | | | | [place] [address] | [place] [address] | | | | | [phone] | [phone] | | | | | | | [...] | | | | | | [place] [address] | | | | | | [phone] | | | | | | | [...] | | | | | | [place] [address] | | | | | | [phone] | | | | | | | | +--------+ + + + + | 05/21/ | Implant | Cardiology | Daljit Singletary, | Remote Device | 2019 | Monitor | | [address] | Interrogation | | | | | [place], | (Primary Dx); | | | | | [place] [address] | Pacemaker; | | | | | [phone] | Sinoatrial node | | | | | | dysfunction (HCC) | | | | | | with symptomatic | | | | | | bradycardia | +--------+ + + + + documented as of this encounter Visit Diagnoses Not on filedocumented in this encounter"
--- OUTSIDE RECORDS SUMMARY | ~2020-04-13 | XMS | Encounter Summary ---
Demographics + + + | Address | [address] | | | [place] [address] | + + + | Home Phone [...] Team Providers + +------+ + | Care Pan Helper Name | Role | Phone | + +------+ + | Kirk French MD | PCP | | + +------+ + Encounter Details +--------+ + + + + | Date | Type | Department | Care Team | Description | +--------+ + + + + | 01/05/ | Orders Only | [facility] | Emmanuel Daniel MD | | | 2019 | | [facility] | [address] [place] | | | | | PATHOLOGY [address] | [address] [place], [place] | | | | | BLVD [place], [place] | [address] | | | | | [address] | | | | | | [phone] | | | +--------+ + + + [...] | | | | | | [place] [address] | | | | | | [phone] | | | | | | | | +--------+ + + + + | 05/01/ | Procedure | Cardiology | | | | 2019 | visit | | | | +--------+ + + + + | 05/01/ | Office | Cardiology | [place], | | | 2019 | Visit | | [place] [address] | | | | | | [place], | | | | | | [place] [address] | | | | | | [phone] | | | | | | | | +--------+ + + + + | 05/21/ | Implant | Cardiology | Daljit Singletary, | Remote Device | | 2019 | Monitor | | [facility] | Interrogation | | | | | 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 BES:[facility]:C3NR GROSS DESCRIPTION: A. The | | | specimen, labeled "[place], duodenal biopsy" is received in formalin | | | and consists of seven 0.1-0.5 cm lin fragments. Entirely submitted in | | | (A1). B. The specimen, labeled "[place], right colon" is received | | | in formalin and consists of six 0.2-0.3 cm lin fragments. Entirely | | | submitted in (B1). C. The specimen, labeled "[place], left colon" | | | is received in formalin and consists of six 0.2-0.3 cm lin-pink | | | fragments. Entirely submitted in (C1). am:AMB:rds PERFORMING | | | LABORATORY: The technical component was performed by [facility] | | | [facility], [address] [place] [address] (Whiskey Regauger: | | | Kailey Stafford MD; CLIA# [id number]). Professional interpretation was | | | performed by [facility], [facility], [facility] | | | [place] [address] (Whiskey Regauger: Ishaan | | | Anthony Dao; CLIA#: [id number]). Diagnostician: Ishaan Bay MD Pathologist Electronically Signed [...]
--- OUTSIDE RECORDS SUMMARY | ~2020-04-13 | XMS | Encounter Summary ---
Demographics + + + | Address | [address] | | | [place] [address] | + + + | Home Phone [...] Team Providers + +------+ + | Care Genetic Technologist Name | Role | Phone | [...] | | | [address] [place] | [place] [address] | | | | | [address] | | | | | | [phone] | | | +--------+ + + + [...] W | | | | | | [place], | | | | | | [place] [address] | | | | | | [phone] | | | | | | | | +--------+ + + + + | 05/01/ | Procedure | Cardiology | | | | 2019 | visit | | | | +--------+ + + + + | 05/01/ | Office | Cardiology | Silvia, | | | 2019 | Visit | | [address] [address] | | | | | | [place], | | | | | | [place] [address] | | | | | | [phone] | | | | | | | | +--------+ + + + + | 06/30/ | Implant | Cardiology | Daljit Singletary, | Remote Device | | 2019 | Monitor | | [facility] | Interrogation | | | | | [place], | (Primary Dx); | | | | | [place] [address] | Pacemaker; | | | | | [phone] | Sinoatrial node | | | | | | dysfunction (HCC) | | | | | | with symptomatic | | | | | | bradycardia | +--------+ + + + + documented as of this encounter Visit Diagnoses Not on filedocumented in this encounter"
--- OUTSIDE RECORDS SUMMARY | ~2020-04-13 | XMS | Encounter Summary ---
Demographics + + + | Address | [address] | | | [place] [address] | + + + | Home Phone [...] Providers + +------+ + | Care Psychiatric Specialist Name | Role | Phone | + +------+ + PCP | Unavailable | + +------+ + Encounter Details +--------+ + + + + | Date | Type | Department | Care Team | Description | +--------+ + + + + | 02/07/ | [facility] | [facility] | Unknown, | | | 1995 | Encounter | MED CTR XRAY [address] | MD Stefany . | | | | | [place] | | | | | | [place] [address] | (Fax) | | | | | [phone] | | | +--------+ + + + [...] | | | | | | [place] [address] | | | | | | [phone] | | | | | | | [...] | | | | | | [place] [address] | | | | | | [phone] | | | | | | | | +--------+ + + + + | 05/21/ | Implant | Cardiology | Daljit Singletary, | Remote Device | | 2019 | Monitor | | [address] | Interrogation | | | | | [place], | (Primary Dx); | | | | | [place] [phone] | Pacemaker; | | | | | [phone] | Sinoatrial node | | | | | | dysfunction (HCC) | | | | | | with symptomatic | | | | | | bradycardia | +--------+ + + + + documented as of this encounter Visit Diagnoses Not on filedocumented in this encounter"
--- OUTSIDE RECORDS SUMMARY | ~2020-04-13 | XMS | Encounter Summary ---
Demographics + + + | Address | [address] | | | [place] [address] | + + + | Home Phone [...] Team Providers + +------+ + | Care Garment Steamer Name | Role | Phone | + [...] [address] | | | | | [place], | [place], | | | | | [place] [address] | [place] [address] | | | | | [phone] | [phone] | | | | | | | [...] | | | | | | [place] [address] | | | | | | [phone] | | | | | | | | +--------+ + + + + | 05/01/ | Procedure | Cardiology | | | | 2019 | visit | | | | +--------+ + + + + | 05/01/ | Office | Cardiology | Silvia, | | | 2019 | Visit | | PARISA Vernon [address] | | | | | | [place], | | | | | | [place] [address] | | | | | | [phone] | | | | | | | | +--------+ + + + + | 05/21/ | Implant | Cardiology | Daljit Singletary, | Remote Device | 2019 | Monitor | | [address] [place] | Interrogation | | | | | [place], | (Primary Dx); | | | | | [place] [address] | Pacemaker; | | | | | [phone] | Sinoatrial node | | | | | | dysfunction (HCC) | | | | | | with symptomatic | | | | | | bradycardia | +--------+ + + + + documented as of this encounter Visit Diagnoses Not on filedocumented in this encounter"
--- OUTSIDE RECORDS SUMMARY | ~2020-04-13 | XMS | Encounter Summary ---
Demographics + + + | Address | [address] | | | [place] [address] | + + + | Home Phone [...] Team Providers + +------+ + | Care Inventory Management Specialist Name | Role | Phone [...] | | CARDIOLOGY [address] | Janeen, [employer] MEMBER [address] | Clearance) | | | | [place], | [place], | | | | | [place] [address] | [place] [address] | | | | | [phone] | [phone] | | | | | | | [...] | | | | | | [place] [address] | | | | | | [phone] | | | | | | | | +--------+ + + + + | 05/01/ | Procedure | Cardiology | | | | 2019 | visit | | | | +--------+ + + + + | 05/01/ | Office | Cardiology | Silvia, | | | 2019 | Visit | | PARISA Vernon [address] | | | | | | [place], | | | | | | [place] [address] | | | | | | [phone] | | | | | | | | +--------+ + + + + | 05/21/ | Implant | Cardiology | Daljit Singletary, | Remote Device | 2019 | Monitor | | [facility] | Interrogation | | | | | [place], | (Primary Dx); | | | | | [place] [address] | Pacemaker; | | | | | [phone] | Sinoatrial node | | | | | | dysfunction (HCC) | | | | | | with symptomatic | | | | | | bradycardia | +--------+ + + + + documented as of this encounter Visit Diagnoses Not on filedocumented in this encounter"
--- OUTSIDE RECORDS SUMMARY | ~2020-04-13 | XMS | Encounter Summary ---
Demographics + + + | Address | [address] | | | [place] [address] | + + + | Home Phone [...] Providers + +------+ + | Care Automatic Splicing Machine Operator Name | Role | Phone [...] + | 08/29/ | Office | [facility] | Silvia, | Essential | | 2015 | Visit | CARDIOLOGY [address] | PAR[place] [address] | hypertension | | | | [place], | [place], | (Primary Dx); | | | | [place] [address] | [place] [address] | Coronary artery | | | | [phone] | [phone] | disease involving | | | | [...] was seen in the emergency room at [facility] on 08/23/20 15 and the ER physician reviewed his chart saying that there were 2 ultras[facility] both of them are clear of DVT but reveal some venous insufficiency. Today, arian ent tells me that he started having swelling in both his feet within a week when he got to [facility]. He had extensive traveling. He [...] Coronary artery disease involving orutsararmiut coronary artery without angina pectoris Cannabis abuse, [...] by mouth every evening. 90 tablet 3 [facility] [...] 3rd dose, call 911 100 tablet 3 [place]-3 Fatty Acids (SALMON OIL-1000 PO) CAPS, one capsule by mouth daily twice daily ONE TOUCH DELICA LANCETS [facility] Check glucose as needed for hypoglycemia 100 [...] Daily. to reduce urinary frequenc y Lot #[id number], exp 07/2016 (Patient taking differently: Take 8 mg by mouth Daily. PATIENT STA YOSELIN NO LONGER TAKING THIS MEDICATION. STATED ON 08/29/2015. to reduce urinary frequency Lot #[id number], exp 07/2016) 21 capsule 0 Specialty Vitamins [...] PLTEX 163 07/26/2014 I reviewed records from [facility] for emergency department visit o n 08/23/2015. [...] brought reports to the emergency room at [facility] and according to the not es [...] to go back in 3 days to [place] for an attempt of ablation under general [...] dizziness. He is in class I-II of [place] [employer] functional class. T here are [...] this chart may have been created with [employer] voice recognition software. Occasi onal wrong-word [...] W | | | | | | [place], | | | | | | [place] [address] | | | | | | [phone] | | | | | | | | +--------+ + + + + | 05/01/ | Procedure | Cardiology | | | | 2019 | visit | | | | +--------+ + + + + | 05/01/ | Office | Cardiology | Silvia, | | | 2019 | Visit | | PARISA Vernon [address] | | | | | | [place], | | | | | | [place] [address] | | | | | | [phone] | | | | | | | | +--------+ + + + + | 05/21/ | Implant | Cardiology | Sydni Singletary, | Remote Device | 2019 | Monitor | | MD [address] [place] | Interrogation | | | | | [place], | (Primary Dx); | | | | | [place] [address] | Pacemaker; | | | | | [phone] | Sinoatrial node | | | | [...] the | | | | PDT | orutsararmiut coronary | results section. | | | [...] HISTORY: DVT. COMPARISON: None. TECHNIQUE: Compression | [facility] | | sonography was performed from the groin through the popliteal fossa | [facility] | | in both lower [...] conveyed to the ordering provider, by the mixing and dispensing supervisor, | | | immediately following the exam. [...] to the ordering provider, by the | |mixing and dispensing supervisor, immediately following the exam. | | | | | |Dictated and Signed by: Emmanuel Gibbons MD | | Electronically signed: 08/29/2015 3:25 PM | + + + + + + + | Performing | Address | City/State/Zipcode | Phone Number | | Organization | | | | + + + + + | [facility] | [address] [place] | [place] | [phone] | | [facility] | | [address] | | | - IMAGING | | [...] MD | | | | | | ([id number]) on 08/29/2015 | | | | | [...] Coronary artery disease involving orutsararmiut coronary artery without angina pectoris | + + | DVT (deep venous thrombosis), bilateral | + + documented in this encounter
--- OUTSIDE RECORDS SUMMARY | ~2020-04-13 | XMS | Encounter Summary ---
Demographics + + + | Address | [address] | | | [place] [address] | + + + | Home Phone [...] + +------+ + | Care Product Development Technician Name | Role | Phone | [...] + + | 04/12/ | Telephone | [facility] | Daljit Singletary, | Other (issues with | | 2017 | | CARDIOLOGY [address] | MD [address] | low blood pressure | | | | [place], | [place], | and dizziness) | | | | [place] [address] | [place] [address] | | | | | [phone] | [phone] | | | | | | | [...] | | | | | | [place] [address] | | | | | | [phone] | | | | | | | | +--------+ + + + + | 05/01/ | Procedure | Cardiology | | | | 2020 | visit | | | | +--------+ + + + + | 05/01/ | Office | Cardiology | Silvia, | | | 2019 | Visit | | PARISA Vernon W | | | | | | [place], | | | | | | [place] [address] | | | | | | [phone] | | | | | | | | +--------+ + + + + | 05/21/ | Implant | Cardiology | Daljit Singletary, | Remote Device | 2019 | Monitor | | [address] | Interrogation | | | | | [place], | (Primary Dx); | | | | | [place] [address] | Pacemaker; | | | | | [phone] | Sinoatrial node | | | | | | dysfunction (HCC) | | | | | | with symptomatic | | | | | | bradycardia | +--------+ + + + + documented as of this encounter Visit Diagnoses Not on filedocumented in this encounter"
--- OUTSIDE RECORDS SUMMARY | ~2020-04-13 | XMS | Encounter Summary ---
Demographics + + + | Address | [address] | | | [place] [address] | + + + | Home Phone [...] Providers + +------+ + | Care Port Traffic Manager Name | Role | Phone | + +------+ + | Kirk French MD | PCP | | + +------+ + Encounter Details +--------+ + + + + | Date | Type | Department | Care Team | Description | +--------+ + + + + | 07/21/ | Hospital | [facility] | Daljit Singletary, | Palpitations; | | 2018 | Encounter | MED CTR NUCLEAR | MD [address] | Presence of | | | | MEDICINE [address] | [place], | permanent cardiac | | | | [place], | [place] [address] | pacemaker; | | | | [address] | [phone] | Sinoatrial node | | | | [phone] | | dysfunction (HCC) | +--------+ + [...] W | | | | | | [place], | | | | | | [place] [address] | | | | | | [phone] | | | | | | | | +--------+ + + + + | 05/01/ | Procedure | Cardiology | | | | 2019 | visit | | | | +--------+ + + + + | 05/01/ | Office | Cardiology | Silvia, | | | 2019 | Visit | | PARISA [place] W | | | | | | [place], | | | | | | [place] [address] | | | | | | [phone] | | | | | | | | +--------+ + + + + | 05/21/ | Implant | Cardiology | SunshinecherelleDaljit, | Remote Device | | 2020 | Monitor | | [facility] | Interrogation | | | | | [place], | (Primary Dx); | | | | | [place] [address] | Pacemaker; | | | | | [phone] | Sinoatrial node | | | | [...] 08/25/2018 13:12 Wireless even study from | [facility] | | 07/21 until 08/22/2018. [...]
--- OUTSIDE RECORDS SUMMARY | ~2020-04-13 | XMS | Encounter Summary ---
Demographics + + + | Address | [address] | | | [place] [address] | + + + | Home Phone [...] Providers + +------+ + | Care Service Cashier Name | Role | Phone | + +------+ + PCP | Unavailable | + +------+ + Encounter Details +--------+ + + + + | Date | Type | Department | Care Team | Description | +--------+ + + + + | 12/16/ | Hospital | [facility] | | | | 2010 | Encounter | MED CTR LABORATORY | | | | | | [address] | | | | | | [place] | | | | | | [address] | | | | | | [phone] | | | +--------+ + + + [...] | | | | | | [place] [address] | | | | | | [phone] | | | | | | | | +--------+ + + + + | 05/01/ | Procedure | Cardiology | | | | 2019 | visit | | | | +--------+ + + + + | 05/01/ | Office | Cardiology | Silvia, | | | 2019 | Visit | | PARISA [place] [address] | | | | | | [place], | | | | | | [place] [address] | | | | | | [phone] | | | | | | | | +--------+ + + + + | 05/21/ | Implant | Cardiology | Daljit Singletary, | Remote Device | 2019 | Monitor | | [address] [place] | Interrogation | | | | | [place], | (Primary Dx); | | | | | [place] [address] | Pacemaker; | | | | | [phone] | Sinoatrial node | | | | | | dysfunction (HCC) | | | | | | with symptomatic | | | | | | bradycardia | +--------+ + + + + documented as of this encounter Visit Diagnoses Not on filedocumented in this encounter"
--- OUTSIDE RECORDS SUMMARY | ~2020-04-13 | XMS | Encounter Summary ---
Demographics + + + | Address | [address] | | | [place] [address] | + + + | Home Phone [...] Team Providers + +------+ + | Care Cabin Worker Name | Role | Phone | + +------+ + PCP | Unavailable | + +------+ + Encounter Details +--------+ + + + + | Date | Type | Department | Care Team | Description | +--------+ + + + + | 04/23/ | Hospital | [facility] | | | | 2007 - | Encounter | MED CTR MED ONC | | | | | | [address] | | | | 04/24/ | | [place] [address] | | | | 2007 | | [phone] | | | +--------+ + + + [...] | | | | | | [place] [address] | | | | | | [phone] | | | | | | | | +--------+ + + + + | 05/01/ | Procedure | Cardiology | | | | 2019 | visit | | | | +--------+ + + + + | 05/01/ | Office | Cardiology | Silvia, | | | 2019 | Visit | | PARISA Vernon [address] | | | | | | [place], | | | | | | [place] [address] | | | | | | [phone] | | | | | | | | +--------+ + + + + | 05/21/ | Implant | Cardiology | Daljit Singletary, | Remote Device | 2019 | Monitor | | [address] [place] | Interrogation | | | | | [place], | (Primary Dx); | | | | | [place] [address] | Pacemaker; | | | | | [phone] | Sinoatrial node | | | | | | dysfunction (HCC) | | | | | | with symptomatic | | | | | | bradycardia | +--------+ + + + + documented as of this encounter Visit Diagnoses Not on filedocumented in this encounter"
--- OUTSIDE RECORDS SUMMARY | ~2020-04-13 | XMS | Encounter Summary ---
Demographics + + + | Address | [address] | | | [place] [address] | + + + | Home Phone [...] Providers + +------+ + | Care Railroad Dining Car Steward/Stewardess Name | Role | Phone | + [...] 2019 | | GASTROENTEROLOGY | [address] [place] | | | | | [address] [place] | [address] [place], [place] | | | | | [address] [place], [place] | [address] | | | | | [address] | | | | | | [phone] | | | +--------+ + + + [...] | | | | | | [place] [address] | | | | | | [phone] | | | | | | | | +--------+ + + + + | 05/01/ | Procedure | Cardiology | | | | 2019 | visit | | | | +--------+ + + + + | 05/01/ | Office | Cardiology | Silvia, | | | 2019 | Visit | | PARISA [place] W | | | | | | [place], | | | | | | [place] [address] | | | | | | [phone] | | | | | | | | +--------+ + + + + | 05/21/ | Implant | Cardiology | Daljit Singletary, | Remote Device | 2019 | Monitor | | MD [address] [place] | Interrogation | | | | | [place], | (Primary Dx); | | | | | [place] [address] | Pacemaker; | | | | | [phone] | Sinoatrial node | | | | | | dysfunction (HCC) | | | | | | with symptomatic | | | | | | bradycardia | +--------+ + + + + documented as of this encounter Visit Diagnoses Not on filedocumented in this encounter"
--- OUTSIDE RECORDS SUMMARY | ~2020-04-13 | XMS | Encounter Summary ---
Demographics + + + | Address | [address] | | | [place] [address] | + + + | Home Phone [...] Provider Unknown | | | | | [place], [place] | [phone] | | | | | [address] | | | | | | [phone] | | | +--------+ + + + [...] | 2019 | | | [address] | | | | | | [place], | | | | | | [place] [address] | | | | | | [phone] | | | | | | | | +--------+ + + + + | 05/01/ | Procedure | Cardiology | | | | 2019 | visit | | | | +--------+ + + + + | 05/01/ | Office | Cardiology | Silvia, | | | 2019 | Visit | | PARISA Vernon W | | | | | | [place], | | | | | | [place] [address] | | | | | | [phone] | | | | | | | | +--------+ + + + + | 05/21/ | Implant | Cardiology | Daljit Singletary, | Remote Device | | 2019 | Monitor | | [address] [place] | Interrogation | | | | | [place], | (Primary Dx); | | | | | [place] [address] | Pacemaker; | | | | | [phone] | Sinoatrial node | | | | [...]
--- OUTSIDE RECORDS SUMMARY | ~2020-04-13 | XMS | Encounter Summary ---
Demographics + + + | Address | [address] | | | [place] [address] | + + + | Home Phone [...] Providers + +------+ + | Care Aluminum Siding Applicator Name | Role | Phone | + +------+ + | Kirk French MD | PCP | | + +------+ + Encounter Details +--------+ + + + + | Date | Type | Department | Care Team | Description | +--------+ + + + + | 12/23/ | Emergency | [facility] | Cristal Alexander, | Chronic neck pain; | | 2015 | | [facility] | DO [address] | Headache(784.0) | | | | EMERGENCY CENTER | [place] [address] | | | | | [address] | [phone] | | | | | [place], [place] | | | | | | [address] | | | | | | [phone] | | | +--------+ + + + [...] + + + +---------+ + + | [place]-3 Fatty | CAPS, one capsule by | [...] | | | | | | | #[id number], exp 07/2016 | | | | | [...] | | | | | | [place] [address] | | | | | | [phone] | | | | | | | [...] | | | | | | [place] [address] | | | | | | [phone] | | | | | | | | +--------+ + + + + | 05/21/ | Implant | Cardiology | Daljit Singletary, | Remote Device | | 2019 | Monitor | | [address] [facility] | Interrogation | | | | | [place], | (Primary Dx); | | | | | [place] [id number] | Pacemaker; | | | | | [phone] | Sinoatrial node | | | | [...] + + | Ekvin, Rad Conversion - 07/07/2019 5:05 AM PDT PINA [id number] years MaleCT | | CERVICAL SPINE WO [...]
--- OUTSIDE RECORDS SUMMARY | ~2020-04-13 | XMS | Encounter Summary ---
Demographics + + + | Address | [address] | | | [place] [address] | + + + | Home Phone [...] Providers + +------+ + | Care Logistics Lead Name | Role | Phone | [...] + + | 12/19/ | Telephone | [facility] | Kirk French | Triage (chronic IBS) | | 2020 | | [facility] | MD Bre[address] | | | | | [facility] [address] | [address] | | | | | [address] | [place] [address] | | | | | [place], [place] | [phone] | | | | | [address] | | | | | | [phone] | | | +--------+ + + + [...] | | | | | | [place] [address] | | | | | | [phone] | | | | | | | | +--------+ + + + + | 05/01/ | Procedure | Cardiology | | | | 2019 | visit | | | | +--------+ + + + + | 05/01/ | Office | Cardiology | Silvia, | | | 2019 | Visit | | PARISA Vernon [address] | | | | | | [place], | | | | | | [place] [address] | | | | | | [phone] | | | | | | | | +--------+ + + + + | 05/21/ | Implant | Cardiology | Daljit Singletary, | Remote Device | 2019 | Monitor | | [facility] | Interrogation | | | | | [place], | (Primary Dx); | | | | | [place] [address] | Pacemaker; | | | | | [phone] | Sinoatrial node | | | | | | dysfunction (HCC) | | | | | | with symptomatic | | | | | | bradycardia | +--------+ + + + + documented as of this encounter Visit Diagnoses Not on filedocumented in this encounter"
--- OUTSIDE RECORDS SUMMARY | ~2020-04-13 | XMS | Encounter Summary ---
Demographics + + + | Address | [address] | | | [place] [address] | + + + | Home Phone [...] Providers + +------+ + | Care Webbing Tacker Name | Role | Phone | + [...] + + | 02/15/ | Office | [facility] | Jay Cohn PA | DIDIER (obstructive | | 2012 | Visit | SLEEP DISORDER [address] | [address] | sleep apnea) | | | | [address] [place] | [place] | (Primary Dx) | | | | [place] [address] | [address] | | | | | [phone] | | | +--------+---------+ + + + [...] AM PDTGo to [facility] for replacement equipment including: Nasal pillows or [...] pillows obtained from: [facility] [place] pressure is: 13 cm CPAP download shows [...] to go to [facility] [place] to replace his equipment, but it had [...] to go to [facility] [place] to g et a new mask and filter. He is to work toward wearing his CPAP 100% of the time he is asle ep. I will follow up again in 1 month, sooner prn. Fifteen minutes were spent [id number], wi th the majority of time spent [...] W | | | | | | [place], | | | | | | [place] [address] | | | | | | [phone] | | | | | | | | +--------+ + + + + | 05/01/ | Procedure | Cardiology | | | | 2019 | visit | | | | +--------+ + + + + | 05/01/ | Office | Cardiology | Silvia, | | | 2019 | Visit | | PARISA [place] [address] | | | | | | [place], | | | | | | [place] [address] | | | | | | [phone] | | | | | | | | +--------+ + + + + | 05/21/ | Implant | Cardiology | Daljit Singletary, | Remote Device | | 2020 | Monitor | | [address] [facility] | Interrogation | | | | | [place], | (Primary Dx); | | | | | [place] [address] | Pacemaker; | | | | | [phone] | Sinoatrial node | | | | [...]
--- OUTSIDE RECORDS SUMMARY | ~2020-04-13 | XMS | Encounter Summary ---
Demographics + + + | Address | [address] | | | [place] [address] | + + + | Home Phone [...] Team Providers + +------+ + | Care Stitcher Special Machine Name | Role | Phone | [...] [address] | | | | | [place], | [place], | | | | | [place] [address] | [place] [address] | | | | | [phone] | [phone] | | | | | | | [...] W | | | | | | [place], | | | | | | [place] [address] | | | | | | [phone] | | | | | | | | +--------+ + + + + | 05/01/ | Procedure | Cardiology | | | | 2019 | visit | | | | +--------+ + + + + | 05/01/ | Office | Cardiology | [place]via, | | | 2019 | Visit | | [address] | | | | | | [place], | | | | | | [place] [address] | | | | | | [phone] | | | | | | | | +--------+ + + + + | 05/21/ | Implant | Cardiology | Daljit Singletary, | Remote Device | 2019 | Monitor | | MD [address] [place] | Interrogation | | | | | [place], | (Primary Dx); | | | | | [place] [address] | Pacemaker; | | | | | [phone] | Sinoatrial node | | | | [...] Comment | + + | [facility] | + + + +---------+ + + [...] Comment | + + | [facility] | + + + +---------+ + + [...] Comment | + + | [facility] | + + + +---------+ + + [...]
--- OUTSIDE RECORDS SUMMARY | ~2020-04-13 | XMS | Encounter Summary ---
Demographics + + + | Address | [address] | | | [place] [address] | + + + | Home Phone [...] Providers + +------+ + | Care Cook Dessert Name | Role | Phone | + +------+ + | Michael Amanda DO | PCP | | + +------+ + Encounter Details +--------+ + + + + | Date | Type | Department | Care Team | Description | +--------+ + + + + | 09/22/ | Hospital | [facility] | Bahman Gant MD | | | 2012 | Encounter | MED CTR XRAY [address] | [address] [place] | | | | | [place] | [address] [place], | | | | | [place] [address] | [place] [address] | | | | | [phone] | | | | | | | [...] + + +---------+ + + | [place]-3 Fatty | CAPS, one capsule by | [...] | | | | | | [place] [address] | | | | | | [phone] | | | | | | | | +--------+ + + + + | 05/01/ | Procedure | Cardiology | | | | 2019 | visit | | | | +--------+ + + + + | 05/01/ | Office | Cardiology | Sivlia, | | | 2019 | Visit | | PARISA [place] [address] | | | | | | [place], | | | | | | [place] [address] | | | | | | [phone] | | | | | | | | +--------+ + + + + | 05/21/ | Implant | Cardiology | Daljit Singletary, | Remote Device | 2019 | Monitor | | [address] [facility] | Interrogation | | | | | [place], | (Primary Dx); | | | | | [place] [address] | Pacemaker; | | | | | [phone] | Sinoatrial node | | | | | | dysfunction (HCC) | | | | | | with symptomatic | | | | | | bradycardia | +--------+ + + + + documented as of this encounter Visit Diagnoses Not on filedocumented in this encounter"
--- OUTSIDE RECORDS SUMMARY | ~2020-04-13 | XMS | Encounter Summary ---
Demographics + + + | Address | [address] | | | [place] [address] | + + + | Home Phone [...] Providers + +------+ + | Care Bell Captain Name | Role | Phone | [...] | 06/04/ | Hospital | [facility] | Sariah, | Cervical spinal | | 2016 | Encounter | MED CTR XRAY [address] | [place], GARDEN MACHINERY MECHANIC [address] | stenosis | | | | [place] | [address] | | | | | [place] [address] | [place] [address] | | | | | [phone] | [phone] | | | | | | | [...] + + + +---------+ + + | [place]-3 Fatty | CAPS, one capsule by [...] | | | | | | [place] [address] | | | | | | [phone] | | | | | | | | +--------+ + + + + | 05/01/ | Procedure | Cardiology | | | | 2019 | visit | | | | +--------+ + + + + | 05/01/ | Office | Cardiology | [place]via, | | | 2019 | Visit | | PARISA [place] [address] | | | | | | [place], | | | | | | [place] [address] | | | | | | [phone] | | | | | | | | +--------+ + + + + | 05/21/ | Implant | Cardiology | Daljit Singletary, | Remote Device | | 2019 | Monitor | | [address] [facility] | Interrogation | | | | | [place], | (Primary Dx); | | | | | [place] [address] | Pacemaker; | | | | | [phone] | Sinoatrial node | | | | [...] | | | | thecal, Starting [facility] 06/04/16 at | | | | [...]
--- OUTSIDE RECORDS SUMMARY | ~2020-04-13 | XMS | Encounter Summary ---
Demographics + + + | Address | [address] | | | [place] [address] | + + + | Home Phone [...] Providers + +------+ + | Care Hand Splitter Name | Role | Phone | [...] W | Dx) | | | | [place] [address] | [address] [place] | | | | | [place], [place] | [place] [address] | | | | | [address] | [phone] | | | | | [phone] | | | +--------+ + + + [...] + + + +---------+ + + | Brentwood-3 Fatty | CAPS, one capsule by | [...] W | | | | | | [place], | | | | | | [place] [address] | | | | | | [phone] | | | | | | | | +--------+ + + + + | 05/01/ | Procedure | Cardiology | | | | 2019 | visit | | | | +--------+ + + + + | 05/01/ | Office | Cardiology | Silvia, | | | 2019 | Visit | | PARISA [place] [address] | | | | | | [place], | | | | | | [place] [address] | | | | | | [phone] | | | | | | | | +--------+ + + + + | 05/21/ | Implant | Cardiology | Daljit Singletary, | Remote Device | | 2019 | Monitor | | [address] | Interrogation | | | | | [place], | (Primary Dx); | | | | | [place] [address] | Pacemaker; | | | | | [phone] | Sinoatrial node | | | | [...] W?MRN: | | | | | | [id number] | | | [id number] | | | his | | | [...] | | | ent/60 | | | [id number] | | | -5586- | | | [...] | | | St. | | | [place] | | | y H. | | [...] | | | St. | | | [place] | | | y H. | | [...] | | | St. | | | [place] | | | y H. | | [...] | | | St. | | | [place] | | | y H. | | [...] | | | St. | | | [place] | | | y | | | [...] | | | ext. | | | [address] | | | or go | | [...] [address] | [place] | [phone] | | [facility] | | [address] | | | - LABORATORY | | [...] ST. | [address] | [place], [place] | [phone] | | [facility] | | [address] | | | - LABORATORY | | [...] | | | FILTRATION | mL/min/1.73m2 | [facility] | | | TUNISIAN | RATE,ESTIMATED | | MEDICAL | | | | mL/min/1.62m0Mtdj than | | CENTER - | | [...] + | [facility] | [address] | [place] | [phone] | | [facility] | | [address] | | | - LABORATORY | | [...] [address] | [place] | [phone] | | [facility] | | [address] | | | - LABORATORY | | | | + + + + + documented in this encounter Visit Diagnoses + + | Diagnosis | + + | Bronchitis - Primary Bronchitis, not specified as acute or chronic | + + documented in this encounter"
--- OUTSIDE RECORDS SUMMARY | ~2020-04-13 | XMS | Encounter Summary ---
Demographics + + + | Address | [address] | | | [place] [address] | + + + | Home Phone [...] Team Providers + +------+ + | Care Wine Sales Representative Name | Role | Phone [...] | | CARDIOLOGY [address] | WOOD GRINDER OPERATOR [address] | | | | | [place], | [place], [place] | | | | | [place] [address] | [address] | | | | | [phone] | | | +--------+ + + + [...] | | | | | | [place] [address] | | | | | | [phone] | | | | | | | [...] | | | | | | [place] [address] | | | | | | [phone] | | | | | | | | +--------+ + + + + | 05/21/ | Implant | Cardiology | Daljit Singletary, | Remote Device | 2019 | Monitor | | MD [address] | Interrogation | | | | | [address] [place], | (Primary Dx); | | | | | [place] [address] | Pacemaker; | | | | | [phone] | Sinoatrial node | | | | | | dysfunction (HCC) | | | | | | with symptomatic | | | | | | bradycardia | +--------+ + + + + documented as of this encounter Visit Diagnoses Not on filedocumented in this encounter"
--- OUTSIDE RECORDS SUMMARY | ~2020-04-13 | XMS | Encounter Summary ---
Demographics + + + | Address | [address] | | | [place] [address] | + + + | Home Phone [...] Team Providers + +------+ + | Care Finished Carpet Inspector Name | Role | Phone | [...] | | | | Sinoatrial | Geri, CATTLE TESTER | [address] | | | | | node | [address] | [place], | | | | | dysfunction | St [place] | [place] | | | | | (HCC) | [place], [place] | [address] | | | | | Coronary | [address] | Phone: | | | | | artery | Phone: | [phone] | | | | | disease | [phone] | Fax: | | | | | involving | Fax: | [phone] | | | | | igiugig | [phone] | | | | | | coronary | | | | | | | artery of | | | | | | | igiugig heart | | | | | | [...] | | | | | | Complete [place] | | | | | | | ECHO HEART | | | | | | | XTHORACIC,[place] | | | | | | | MPLETE W | | | | | | | DOPPLER [place] | | | | | | [...] | | | | Sinoatrial | Geri, CATTLE TESTER | [address] | | | | | node | [address] | [place], | | | | | dysfunction | St [place] | [place] | | | | | ([facility] | [place], [place] | [address] | | | | | Coronary | [address] | Phone: | | | | | artery | Phone: | [phone] | | | | | disease | [phone] | Fax: | | | | | involving | Fax: | [phone] | | | | | igiugig | [phone] | | | | | | coronary | | | | | | | artery of | | | | | | | igiugig heart | | | | | | [...] | | | | | | Complete [place] | | | | | | | ECHO HEART | | | | | | | XTHORACIC,[place] | | | | | | | MPLETE W | | | | | | | DOPPLER [place] | | | | | | [...] + + + + | 06/16/ | [facility] | [facility] | Geri Angel, | Sinoatrial node | | 2016 | Encounter | MED CTR ECHO [address] | CATTLE TESTER [address] | dysfunction (HCC) | | | | [address] [place] | [place], [place] | with symptomatic | | | | [place] [address] | [address] | bradycardia; | | | | [phone] | | Coronary artery | | | | | Juvenal Blake, | disease involving | | | | | Technologist | igiugig coronary | | | | | | artery of igiugig | | | | | | heart [...] + + + +---------+ + + | Abie-3 Fatty | CAPS, one capsule by | [...] | | | | | | [address] [place], | | | | | | [place] [address] | | | | | | [phone] | | | | | | | | +--------+ + + + + | 05/01/ | Procedure | Cardiology | | | | 2019 | visit | | | | +--------+ + + + + | 05/01/ | Office | Cardiology | Silvia, | | | 2019 | Visit | | PARISA Vernon [address] | | | | | | [address] [place], | | | | | | [place] [address] | | | | | | [phone] | | | | | | | | +--------+ + + + + | 05/21/ | Implant | Cardiology | Sydni Singletary, | Remote Device | | 2019 | Monitor | | [facility] | Interrogation | | | | | St[place], | (Primary Dx); | | | | | [place] [address] | Pacemaker; | | | | | [phone] | Sinoatrial node | | | | [...] involving | | | | | | igiugig coronary | | | | | | artery of igiugig | | | | | | heart [...] (TTE) Demographics Patient Name VICTOR HUGO | [facility] | | [place] Room Number SARAH Patient | [facility] | | [id number] Date of Study 06/16/2016 Number | - IMAGING | | Visit Number [id number] | | | Referring Physician JOSE ARMANDO GARCIA Number Date of 1960 | | | Package Designer LUIS FERNANDO DUARTE Age | | | 56 year(s) Interpreting | | | GURJIT TROY | | | Event Marketing Assistant SYDNI SINGLETARY, | | | Gender | | | Male Nurse Procedure Type of Study TTE | | | procedure: ECHO Complete. Procedure dateDate: 06/16/2016Start: 10:55 | | | AM Technical Quality: Adequate visualizationStudy Location: Echo | | | LabIndications: CAD NEW KOLIGANEK CORONARY ARTERY 414.01/ I25.10 and | | [...] BARRY Room Number SARAH | | Patient [id number] Date of Study 06/16/2016 Number Visit Number | | [id number] Referring Physician JOSE ARMANDO GARCIA Number | | Date of 1960 Package Designer LUIS FERNANDO DUARTE Age | | 56 year(s) Interpreting GURJIT TROY | | Event Marketing Assistant SYDNI SINGLETARY, | | Gender Male NurseProcedureType of Study TTE | | procedure: ECHO Complete.Procedure dateDate: 06/16/2016Start: 10:55 AMTechnical Quality: | | Adequate visualizationStudy Location: Echo LabIndications: CAD NEW KOLIGANEK CORONARY ARTERY | | 414.01/ I25.10 and [...] [address] | [place] | [phone] | | [facility] | | [address] | | | - IMAGING | | [...] + + | Coronary artery disease involving igiugig coronary artery of igiugig heart without | | angina pectoris | + + | Ascending thoracic aortic aneurysm (HCC) Thoracic aneurysm without mention of rupture | + + documented in this encounter"
--- OUTSIDE RECORDS SUMMARY | ~2020-04-13 | XMS | Encounter Summary ---
Demographics + + + | Address | [address] | | | [place] [address] | + + + | Home Phone [...] Team Providers + +------+ + | Care Leveling Machine Operator Name | Role | Phone [...] | initial encounter; | | | | [place], [place] | | Elevated blood | | | | [address] | | pressure reading; | | | | [phone] | | Numbness and | | | [...] + + + +---------+ + + | Norden-3 Fatty | CAPS, one capsule by | [...] | | | | | | [place] [address] | | | | | | [phone] | | | | | | | | +--------+ + + + + | 05/01/ | Procedure | Cardiology | | | | 2019 | visit | | | | +--------+ + + + + | 05/01/ | Office | Cardiology | Silvia, | | | 2019 | Visit | | PARISA Vernon W | | | | | | [place], | | | | | | [place] [address] | | | | | | [phone] | | | | | | | | +--------+ + + + + | 05/21/ | Implant | Cardiology | Daljit Singletary, | Remote Device | | 2020 | Monitor | | [address] [facility] | Interrogation | | | | | [place], | (Primary Dx); | | | | | [place] [address] | Pacemaker; | | | | | [phone] | Sinoatrial node | | | | [...]
--- OUTSIDE RECORDS SUMMARY | ~2020-04-13 | XMS | Encounter Summary ---
Demographics + + + | Address | [address] | | | [place] [address] | + + + | Home Phone [...] Providers + +------+ + | Care City Solicitor Name | Role | Phone | + +------+ + | Kirk French MD | PCP | | + +------+ + Encounter Details +--------+---------+ + + + | Date | Type | Department | Care Team | Description | +--------+---------+ + + + | 12/24/ | Surgery | [facility] | Emmanuel Daniel MD | EGD | | 2018 | | MED CTR MP INTRA OP | [address], [place] | | | | | [address] | [address] [place], [place] | | | | | [place], [place] | [address] | | | | | [address] | | | | | | [phone] | | | +--------+---------+ + + + [...] | | | | | | [place] [address] | | | | | | [phone] | | | | | | | [...] | | | | | | [place] [address] | | | | | | [phone] | | | | | | | | +--------+ + + + + | 05/21/ | Implant | Cardiology | Daljit Singletary, | Remote Device | | 2019 | Monitor | | MD [address] | Interrogation | | | | | [place], | (Primary Dx); | | | | | [place] [address] | Pacemaker; | | | | | [phone] | Sinoatrial node | | | | [...] + + | Performed at: 01 - [facility] [address], | REFERENCE LAB | | [place], [place] [id number] Coding Quality Analyst: William Andrew MD, Phone: | [facility] | | [phone] | | + + + + + + + + | Performing | Address | City/State/Zipcode | Phone Number | | Organization | | | | + + + + + | REFERENCE LAB | [address] | [place], [place] | [phone] | | [facility] | [place] | [address] | | + + + + + [...] [address] | [place] | [phone] | | [facility] | | [address] | | | - LABORATORY | | [...] | [address] | [place] | [phone] | | [facility] | | [address] | | | - LABORATORY | | [...] [address] | [place] | [phone] | | [facility] | | [address] | | | - LABORATORY | | [...] + + | Performed at: 01 - [facility] [address], | REFERENCE LAB | | [place], [place] [address] Coding Quality Analyst: William Andrew MD, Phone: | [facility] | | [phone] | | + + + + + + + + | Performing | Address | City/State/Zipcode | Phone Number | | Organization | | | | + + + + + | REFERENCE LAB | [address] | [place], [place] | [phone] | | [facility] | Drive [facility] | [address] | | + + + + + [...] [address] | [place] | [phone] | | [facility] | | [address] | | | - LABORATORY | | [...] [address] | [place] | [phone] | | [facility] | | [address] | | | - LABORATORY | | [...] [address] | [place] | [phone] | | [facility] | | [address] | | | - LABORATORY | | [...] [address] | [place] | [phone] | | [facility] | | [address] | | | - LABORATORY | | [...] [address] | [place] | [phone] | | [facility] | | [address] | | | - LABORATORY | | | | + + + + + EGD (12/24/2017 1:19 PM PST) + + | Specimen | + + | | + + + + -+ | Narrative | Performed At | + + -+ | | [facility] | | GastroenterologyPatient Name: Moe SanchezProcedure Date: 12/24/2017 | [facility] | | 1:19 PMMRN: [id number] #: [id number] of : | | | 1960dmit Type: AmbulatoryAge: 57[facility]Gender: MaleNote | | | Status: FinalizedAttending MD: Emmanuel Daniel , MDProcedure: | | | Upper GI endoscopyIndications: Diarrhea, Weight | | | lossProviders: Emmanuel Daniel MD, Maria Isabel Morris RN, | | | Kim Hicks, Industrial Safety And Health Specialist, Jarett | | | Sapna Barakat [...] the anesthesiologist and | | | the electrical/instrument technician in the endoscopy suite. Mental Status [...] PMScope Out: 1:31:13 PM | | | [facility], [address] [place] [place] [address] | | | [place] [address] | | | - Discharge patient to [...] |Scope Out: 1:31:13 PM | | | [facility], [address] [place] [address] | | | [address] | | + + -+ + +---------+ [...] 12/24/2017 | [facility] | | 1:17 PMMRN: [id number] #: [id number] of : | | | 8Admit Type: AmbulatoryAge: 57Room: [facility] 01Gender: MaleNote | | | Status: FinalizedAttending MD: Emmanuel Daniel [facility]: | | | ColonoscopyIndications: Clinically significant diarrhea of | | | unexplained originProviders: Emmanuel Daniel MD, Maria Isabel | | | Arturo, RN, Kim Hicks, Industrial Safety And Health Specialist, | | | Jarett Barakat MD [...] | | | the anesthesiologist and the electrical/instrument technician in the endoscopy suite. | | [...] Scope In: 1:32:55 PMScope Out: 1:48:57 PM [facility] | | | [facility], [address] [place] [address] | | | [phone] | | | - Await pathology results. [...] |Scope Out: 1:48:57 PM | | | [facility], [facility] [address] [place], [place] | | | [address] | | + + -+ + +---------+ [...] | colonic mucosa with focal adenomatous change. CLR:[facility]:C2NR | | | GROSS DESCRIPTION: [...] in formalin labeled | | | "Moe Larua, D." and labeled "C, bx TI" on [...] | | cm, submitted, all in (D1). ka:CLR:[facility] ADDITIONAL NOTES: | | | Immunohistochemical studies were performed on this case with the | | | appropriate positive controls that react as expected. This test was | | | developed and its performance characteristics determined by [facility] | | | [facility]. It has not been cleared or approved by the U.S. Food | | | and Drug Administration. The FDA has determined that such clearance | | | or approval is not necessary. This test is used for clinical | | | purposes. It should not be regarded as investigational or for | | | research. [facility] is certified under the Clinical | | | Laboratory Improvement Amendments of 1988 (CLIA) as qualified to | | | perform high complexity clinical laboratory testing. This assay | | | has not been validated for specimens that have been decalcified. | | | PERFORMING LABORATORY: Tissue processing and slide preparation were | | | performed by [facility], [address], [facility] | | | [place] [address] (Guideman: Evan Frausto M.D. CLIA#: | | | [id number]). Professional interpretation was performed by [facility] | | | [facility], [address], [place] [address] | | | (Guideman: Evan Frausto M.D.; CLIA#: [id number]). | | | Diagnostician: Rafael Bales MD [...]
--- OUTSIDE RECORDS SUMMARY | ~2020-04-13 | XMS | Encounter Summary ---
Demographics + + + | Address | [address] | | | [place] [address] | + + + | Home Phone [...] Providers + +------+ + | Care Journeyman Carpenter Name | Role | Phone | [...] + | 01/03/ | Office | [facility] | [place]via, | CAD (coronary artery | | 2012 | Visit | CARDIOLOGY [address] | Janeen, SAW FILER [address] | disease) (Primary | | | | [place], | [place], | Dx); Bradycardia; | | | | [place] [address] | [place] [address] | HTN (hypertension); | | | | [phone] | [phone] | Lightheadedness | | | | | [...] tablet Take 1,000 mg by mouth Daily. Dumont-3 Fatty Acids (SALMON OIL-1000 PO) CAPS, one [...] himself t o the emergency department at [facility] in [place], [place]. EKG showed normal s inus rhythm [...] Refer patient to an electrophysiology specialist in [place] for further evaluation for P VC's ablation. I have given verbal instructions and written material for patient to read mo re about the procedure. 2. Check blood pressure and pulse twice daily for two weeks and return the log to our offic e. 3. Followup appointment after patient's appointment with public affairs specialist/ablation. IJaneen ARNP, saw this patient under the direct supervision of Daljit Singletary MD Portions of this report were transcribed using voice recognition software. Every effort wa s made to ensure accuracy; however, inadvertent computerized senior sql dba errors may be pre sent. documented in [...] | | | | | | [place] [address] | | | | | | [phone] | | | | | | | | +--------+ + + + + | 05/01/ | Procedure | Cardiology | | | | 2019 | visit | | | | +--------+ + + + + | 05/01/ | Office | Cardiology | Silvia, | | | 2019 | Visit | | PARISA [place] [address] | | | | | | [place], | | | | | | [place] [address] | | | | | | [phone] | | | | | | | | +--------+ + + + + | 05/21/ | Implant | Cardiology | Daljit Singletary, | Remote Device | 2019 | Monitor | | [address] [place] | Interrogation | | | | | [place], | (Primary Dx); | | | | | [place] [address] | Pacemaker; | | | | | [phone] | Sinoatrial node | | | | | | dysfunction (HCC) | | | | | | with symptomatic | | | | | | bradycardia | +--------+ + + + + documented as of this encounter Visit Diagnoses + + | Diagnosis | + + | CAD (coronary artery disease) - Primary Coronary atherosclerosis of unspecified type | | of vessel, [place] or graft | + + | Bradycardia Other specified cardiac dysrhythmias | + + | HTN (hypertension) Unspecified essential hypertension | + + | Lightheadedness Dizziness and giddiness | + + documented in this encounter
--- OUTSIDE RECORDS SUMMARY | ~2020-04-13 | XMS | Encounter Summary ---
Demographics + + + | Address | [address] | | | [place] [address] | + + + | Home Phone [...] Providers + +------+ + | Care Director Regulatory Affairs Name | Role | Phone | + [...] [address] | | | | | | [place], [place] | (Fax) | | | | | [address] | | | | | | [phone] | | | +--------+ + + + [...] | | | | | | [place] [address] | | | | | | [phone] | | | | | | | | +--------+ + + + + | 05/01/ | Procedure | Cardiology | | | | 2019 | visit | | | | +--------+ + + + + | 05/01/ | Office | Cardiology | Silvia, | | | 2019 | Visit | | PARISA [place] [address] | | | | | | [place], | | | | | | [place] [address] | | | | | | [phone] | | | | | | | | +--------+ + + + + | 05/21/ | Implant | Cardiology | Daljit Singletary, | Remote Device | | 2019 | Monitor | | [address] | Interrogation | | | | | [place], | (Primary Dx); | | | | | [place] [address] | Pacemaker; | | | | | [phone] | Sinoatrial node | | | | | | dysfunction (HCC) | | | | | | with symptomatic | | | | | | bradycardia | +--------+ + + + + documented as of this encounter Visit Diagnoses Not on filedocumented in this encounter"
--- OUTSIDE RECORDS SUMMARY | ~2020-04-13 | XMS | Encounter Summary ---
Demographics + + + | Address | [address] [place] [address] [address] | | | [place] [address] | + + + | Home Phone [...] [place] | | | | | [address] | | + + + + + Care Team Providers + +------+ + | Care Dog Track Kennel Manager Name | Role | Phone | [...] | | | [address] | [place], [place] | | | | | Mailcode: Center | [address] | | | | | for Health and | [phone] | | | | | [facility] [address] | | | | | | [place], [place] | | | | | | [address] | | | | | | [phone] | | | +--------+ + + + [...]
--- OUTSIDE RECORDS SUMMARY | ~2020-04-13 | XMS | Encounter Summary ---
Demographics + + + | Address | [address] | | | [place] [address] | + + + | Home Phone [...] Providers + +------+ + | Care Blow Molding Machine Operator Name | Role | Phone | + +------+ + PCP | Unavailable | + +------+ + Encounter Details +--------+ + + + + | Date | Type | Department | Care Team | Description | +--------+ + + + + | 09/08/ | [facility] | [facility] | Naresh Mckeon | | | 1998 | Encounter | MED CTR SLEEP | MD Chaya [address] | | | | | CENTER [address] | [place] | | | | | [place] | [place] [address] | | | | | [address] | [phone] | | | | | [phone] | | | +--------+ + + + [...] [address] | | | | | | [place], | | | | | | [place] [address] | | | | | | [phone] | | | | | | | | +--------+ + + + + | 05/01/ | Procedure | Cardiology | | | | 2019 | visit | | | | +--------+ + + + + | 05/01/ | Office | Cardiology | Silvia | | | 2019 | Visit | | [address] | | | | | | [place], | | | | | | [place] [address] | | | | | | [phone] | | | | | | | | +--------+ + + + + | 05/21/ | Implant | Cardiology | Daljit Singletary, | Remote Device | 2019 | Monitor | | MD [address] [place] | Interrogation | | | | | [place], | (Primary Dx); | | | | | [place] [address] | Pacemaker; | | | | | [phone] | Sinoatrial node | | | | | | dysfunction (HCC) | | | | | | with symptomatic | | | | | | bradycardia | +--------+ + + + + documented as of this encounter Visit Diagnoses Not on filedocumented in this encounter"
--- OUTSIDE RECORDS SUMMARY | ~2020-04-13 | XMS | Encounter Summary ---
Demographics + + + | Address | [address] | | | [place] [address] | + + + | Home Phone [...] Providers + +------+ + | Care Oil Refinery Operator Name | Role | Phone | [...] + | 01/30/ | Telephone | [facility] | Daljit Singletary, | Other | | 2019 | | CARDIOLOGY [address] | MD [address] | | | | | [place], | [place], | | | | | [place] [address] | [place] [address] | | | | | [phone] | [phone] | | | | | | | [...] | | | | | | [place] [address] | | | | | | [phone] | | | | | | | | +--------+ + + + + | 05/01/ | Procedure | Cardiology | | | | 2019 | visit | | | | +--------+ + + + + | 05/01/ | Office | Cardiology | Silvia, | | | 2019 | Visit | | PARISA eVrnon [address] | | | | | | [place], | | | | | | [place] [address] | | | | | | [phone] | | | | | | | | +--------+ + + + + | 05/21/ | Implant | Cardiology | Daljit Singletary, | Remote Device | 2019 | Monitor | | [address] | Interrogation | | | | | [place], | (Primary Dx); | | | | | [place] [address] | Pacemaker; | | | | | [phone] | Sinoatrial node | | | | [...] 05/02/2019, Expires: | | | | | assiniboine and sioux coronary | 01/30/2020 | | | | [...] 05/02/2019, Expires: | | | | | assinibo[place] and sioux coronary | 01/31/2020 | | | | [...] sioux heart without | | angina pectoris - Primary | + + | Hyperlipidemia, mixed Mixed hyperlipidemia | + + documented in this encounter"
--- OUTSIDE RECORDS SUMMARY | ~2020-04-13 | XMS | Encounter Summary ---
Demographics + + + | Address | [address] | | | [place] [address] | + + + | Home Phone [...] Team Providers + +------+ + | Care Didactic Program In Dietetics Director Name | Role | Phone | [...] + | 06/23/ | Office | [facility] | [place], | Ascending thoracic | | 2016 | Visit | CARDIOLOGY [address] | [place] [address] | aortic aneurysm | | | | [place], | [place], | ([facility]) (Primary Dx); | | | | [place] [address] | [place] [address] | Coronary artery | | | | [phone] | [phone] | disease involving | | | | | | round valley coronary | | | | | | artery of round valley | | | | | | [...] in office in 6 months. [email or web address], Janeen, HOME DELIVERY DRIVER - 06/23/2016 12:45 PM PDT PATIENT NAME: Moe Sanchez : 1960: AGE: 56 y.o. PRIMARY CARE: Kirk French MD OUTPATIENT FOLLOW UP VISIT Date of Service: 06/23/2016 HISTORY OF PRESENT ILLNESS: Moe Sanchez is a 56 y.o. male with a history of non-critical coronary artery d isease involving round [place] coronary artery of round [place] heart without angina pectoris, essential h [...] artery disease involving round [place] coronary artery of round [place] heart without angina pectoris Cannabis abuse, [...] 3rd dose, call 911 100 tablet 3 [place]-3 Fatty Acids (SALMON OIL-1000 PO) CAPS, one [...] reviewed during visit today primarily from [facility]: LIPID Lab Results Component Value Date TRIG [...] ASSESSMENT: 1. Non-critical Coronary artery disease involving round [place] coronary artery of [place] heart [facility] angina pectoris: A. [...] pain. He is in class I-II of [place] [employer] n functional class. There are [...] this chart may have been created with [employer] voice recognition software. Occasi onal wrong-word or [...] | | | | | | [place] [address] | | | | | | [phone] | | | | | | | [...] | | | | | | [place] [address] | | | | | | [phone] | | | | | | | | +--------+ + + + + | 05/21/ | Implant | Cardiology | SunshinecherelleSydni, | Remote Device | | 2019 | Monitor | | [facility] | Interrogation | | | | | [place], | (Primary Dx); | | | | | [place] [address] | Pacemaker; | | | | | [phone] | Sinoatrial node | | | | [...] the | | | | PDT | round valley coronary | results section. | | | | | artery of round valley | | | | | | [...] MD | | | | | | ([id number]) on 06/23/2016 | | | | | [...] artery disease involving round valley coronary artery of round valley heart without | | angina pectoris [...]
--- OUTSIDE RECORDS SUMMARY | ~2020-04-13 | XMS | Encounter Summary ---
Demographics + + + | Address | [address] | | | [place] [address] | + + + | Home Phone [...] Providers + +------+ + | Care Security Intelligence Analyst Name | Role | Phone | [...] | disease involving | | | | [place], | [place], | burns pa[place] coronary | | | | [place] [address] | [place] [address] | artery without | | | | [phone] | [phone] | angina pectoris | | | | [...] W | | | | | | [place], | | | | | | [place] [address] | | | | | | [phone] | | | | | | | | +--------+ + + + + | 05/01/ | Procedure | Cardiology | | | | 2019 | visit | | | | +--------+ + + + + | 05/01/ | Office | Cardiology | [place]via, | | | 2019 | Visit | | [address] [address] | | | | | | [place], | | | | | | [place] [address] | | | | | | [phone] | | | | | | | | +--------+ + + + + | 05/21/ | Implant | Cardiology | Daljit Singletary, | Remote Device | | 2020 | Monitor | | MD [address] [facility] | Interrogation | | | | | [place], | (Primary Dx); | | | | | [place] [address] | Pacemaker; | | | | | [phone] | Sinoatrial node | | | | [...] MD | | | | | | ([id number]) on 08/29/2015 | | | | | [...] artery disease involving burns paiute coronary artery without angina pectoris - | | Primary | + + documented in this encounter"
--- OUTSIDE RECORDS SUMMARY | ~2020-04-13 | XMS | Encounter Summary ---
Demographics + + + | Address | [address] | | | [place] [address] | + + + | Home Phone [...] Providers + +------+ + | Care Commercial Insurance Underwriter Name | Role | Phone | + +------+ + PCP | Unavailable | + +------+ + Encounter Details +--------+ + + + + | Date | Type | Department | Care Team | Description | +--------+ + + + + | 10/09/ | [facility] | [facility] | Jonathan, | | | 2008 | Encounter | MED CTR EMERGENCY | Martell Cr MD [address] | | | | | CENTER [address] [place] | [place] | | | | | [place] | [place] [address] | | | | | [address] | [phone] | | | | | [phone] | | | +--------+ + + + [...] | | | | | [place], | | | | | | [place] [address] | | | | | | [phone] | | | | | | | | +--------+ + + + + | 05/01/ | Procedure | Cardiology | | | | 2019 | visit | | | | +--------+ + + + + | 05/01/ | Office | Cardiology | [place]via | | | 2019 | Visit | | PAR[place] [address] | | | | | | [place], | | | | | | [place] [address] | | | | | | [phone] | | | | | | | | +--------+ + + + + | 05/21/ | Implant | Cardiology | Daljit Singletary, | Remote Device | 2019 | Monitor | | MD [place] | Interrogation | | | | | [place], | (Primary Dx); | | | | | [place] [address] | Pacemaker; | | | | | [phone] | Sinoatrial node | | | | | | dysfunction (HCC) | | | | | | with symptomatic | | | | | | bradycardia | +--------+ + + + + documented as of this encounter Visit Diagnoses Not on filedocumented in this encounter"
--- OUTSIDE RECORDS SUMMARY | ~2020-04-13 | XMS | Encounter Summary ---
Demographics + + + | Address | [address] | | | [place] [address] | + + + | Home Phone [...] Providers + +------+ + | Care Clinical Staff Anesthesiologist Name | Role | Phone | + +------+ + PCP | Unavailable | + +------+ + Encounter Details +--------+ + + + + | Date | Type | Department | Care Team | Description | +--------+ + + + + | 08/02/ | Hospital | [facility] | | | | 2001 | Encounter | MED CTR EMERGENCY | | | | | | [place] [address] | | | | | | [place] | | | | | | [address] | | | | | | [phone] | | | +--------+ + + + [...] | | | | | | [place] [address] | | | | | | [phone] | | | | | | | [...] | | | | | | [place] [address] | | | | | | [phone] | | | | | | | | +--------+ + + + + | 05/21/ | Implant | Cardiology | Daljit Singletary, | Remote Device | 2019 | Monitor | | [address] [place] | Interrogation | | | | | [place], | (Primary Dx); | | | | | [place] [address] | Pacemaker; | | | | | [phone] | Sinoatrial node | | | | | | dysfunction (HCC) | | | | | | with symptomatic | | | | | | bradycardia | +--------+ + + + + documented as of this encounter Visit Diagnoses Not on filedocumented in this encounter"
--- OUTSIDE RECORDS SUMMARY | ~2020-04-13 | XMS | Encounter Summary ---
Demographics + + + | Address | [address] | | | [place] [address] | + + + | Home Phone [...] | | CARDIOLOGY [address] | Janeen OPERATIONS SUPERINTENDENT [address] | mixed | | | | [place], | [place], | | | | | [place] [address] | [place] [address] | | | | | [phone] | [phone] | | | | | | | [...] W | | | | | | [place], | | | | | | [place] [address] | | | | | | [phone] | | | | | | | | +--------+ + + + + | 05/01/ | Procedure | Cardiology | | | | 2019 | visit | | | | +--------+ + + + + | 05/01/ | Office | Cardiology | Silvia, | | | 2019 | Visit | | [address] [address] | | | | | | [place], | | | | | | [place] [address] | | | | | | [phone] | | | | | | | | +--------+ + + + + | 05/21/ | Implant | Cardiology | Daljit Singletary, | Remote Device | | 2020 | Monitor | | MD Chiquis [place]man[place] | Interrogation | | | | | [place], | (Primary Dx); | | | | | [place] [address] | Pacemaker; | | | | | [phone] | Sinoatrial node | | | | [...]
--- OUTSIDE RECORDS SUMMARY | ~2020-04-13 | XMS | Encounter Summary ---
Demographics + + + | Address | [address] | | | [place] [address] | + + + | Home Phone [...] Providers + +------+ + | Care Shop Laborer Name | Role | Phone | [...] + | 09/13/ | Office | [facility] | Bahman Gant MD | Other dysphagia | | 2013 | Visit | OTOLARYNGOLOGY [address] | [address] [place] | (Primary Dx) | | | | [address] | [address] [place], | | | | | [place], [place] | [place] [address] | | | | | [address] | [phone] | | | | | [phone] | | | +--------+---------+ + + + [...] MD - 09/13/2013 5:46 PM PDTSee dictation #[id number] signed by Joseph Gant MD at 09/13/2013 5:52 PM Bahman Lamb MD - 09/13/2013 12:00 AM PDT ENT AND AUDIOLOGY [address] [facility] [address] [place] [address] FAX: [phone] OFFICE VISIT The patient gives a history [...] Gant MD GM / MS JOB #: [id number] signed by Bahman Gant MD at 09/14/2013 [...] | | | | | | [place] [address] | | | | | | [phone] | | | | | | | | +--------+ + + + + | 05/01/ | Procedure | Cardiology | | | 2019 | visit | | | | +--------+ + + + + | 05/01/ | Office | Cardiology | [place], | | | 2019 | Visit | | [address] W | | | | | | [place], | | | | | | [place] [address] | | | | | | [phone] | | | | | | | | +--------+ + + + + | 05/21/ | Implant | Cardiology | Daljit Singletary, | Remote Device | | 2019 | Monitor | | MD [facility] | Interrogation | | | | | [place], | (Primary Dx); | | | | | [place] [address] | Pacemaker; | | | | | [phone] | Sinoatrial node | | | | [...]
--- OUTSIDE RECORDS SUMMARY | ~2020-04-13 | XMS | Encounter Summary ---
Demographics + + + | Address | [address] | | | [place] [address] | + + + | Home Phone [...] Providers + +------+ + | Care Oil Plant Operator Name | Role | Phone [...] 2019 | | GASTROENTEROLOGY | [address], [place] | | | | | [address] [place] | [address] [place], [place] | | | | | [address] [place], [place] | [address] | | | | | [address] | | | | | | [phone] | | | +--------+ + + + [...] | | | | | | [place] [address] | | | | | | [phone] | | | | | | | [...] | | | | | | [place] [address] | | | | | | [phone] | | | | | | | | +--------+ + + + + | 05/21/ | Implant | Cardiology | Daljit Singletary, | Remote Device | 2019 | Monitor | | [address] [place] | Interrogation | | | | | [place], | (Primary Dx); | | | | | [place] [address] | Pacemaker; | | | | | [phone] | Sinoatrial node | | | | | | dysfunction (HCC) | | | | | | with symptomatic | | | | | | bradycardia | +--------+ + + + + documented as of this encounter Visit Diagnoses Not on filedocumented in this encounter"
--- OUTSIDE RECORDS SUMMARY | ~2020-04-13 | XMS | Encounter Summary ---
Demographics + + + | Address | [address] | | | [place] [address] | + + + | Home Phone [...] Providers + +------+ + | Care Brand Sales Consultant Name | Role | Phone [...] CARDIOLOGY [address] | MD [address] [place] | Interrogation | | | | [place], | [place], | (Primary Dx); | | | | [place] [address] | [place] [address] | Pacemaker; | | | | [phone] | [phone] | Sinoatrial node | | | | [...] | | | | | | [place] [address] | | | | | | [phone] | | | | | | | | +--------+ + + + + | 05/01/ | Procedure | Cardiology | | | | 2019 | visit | | | | +--------+ + + + + | 05/01/ | Office | Cardiology | [place], | | | 2019 | Visit | | [address] [address] | | | | | | [place], | | | | | | [place] [address] | | | | | | [phone] | | | | | | | | +--------+ + + + + | 05/21/ | Implant | Cardiology | Daljit Singletary, | Remote Device | 2019 | Monitor | | MD Sim [facility] | Interrogation | | | | | [place], | (Primary Dx); | | | | | [place] [address] | Pacemaker; | | | | | [phone] | Sinoatrial node | | | | [...] scanned into | | | [facility] for remote interrogation results. Data collected by [...]
--- OUTSIDE RECORDS SUMMARY | ~2020-04-13 | XMS | Encounter Summary ---
Demographics + + + | Address | [address] | | | [place] [address] | + + + | Home Phone [...] Team Providers + +------+ + | Care Gaming Director Name | Role | Phone | + +------+ + | Michael Amanda DO | PCP | | + +------+ + Reason for Visit + + + | Reason | Comments | + + + | Follow-up | One month with [facility] 12/25/13 | + + + | Chest Pain | | + + + Encounter Details +--------+---------+ + + + | Date | Type | Department | Care Team | Description | +--------+---------+ + + + | 01/29/ | Office | [facility] | [place], | Other chest pain | | 2013 | Visit | CARDIOLOGY [address] | PARISA [place] [address] | (Primary Dx); Chest | | | | [place], | [place], | pain; Coronary | | | | [place] [address] | [place] [address] | artery disease; | | | | [phone] | [phone] | Hyperlipidemia; | | | | | [...] last week to the emergency room at [facility] with a baljit [facility] pain episode. [...] needed for Chest pain. 25 tablet 12 [place]-3 Fatty Acids (SALMON OIL-1000 PO) CAPS, one [...] was seen [facility], he was ruled out A [...] pain. He is in class II of [place] [employer] functional class. There are no [...] to go back in 3 days to [place] for an attempt of ablation under general [...] symptoms. He is in class II of [place] [employer] functional class. There are no [...] made to ensure accuracy; however, inadvertent computerized auto parts professional errors may be pre sent. Electronically signed [...] | | | | | | [place] [address] | | | | | | [phone] | | | | | | | [...] | | | | | | [place] [address] | | | | | | [phone] | | | | | | | | +--------+ + + + + | 05/21/ | Implant | Cardiology | Gemini Shaistakenneth, | Remote Device | | 2019 | Monitor | | [address] [facility] | Interrogation | | | | | [place], | (Primary Dx); | | | | | [place] [address] | Pacemaker; | | | | | [phone] | Sinoatrial node | | | | [...] of unspecified type of vessel, | | comanche or graft | + + | Hyperlipidemia Other and unspecified hyperlipidemia | + + | Symptomatic PVCs Other premature beats | + + | Hypertension Unspecified essential hypertension | + + documented in this encounter
--- OUTSIDE RECORDS SUMMARY | ~2020-04-13 | XMS | Encounter Summary ---
Demographics + + + | Address | [address] | | | [place] [address] | + + + | Home Phone [...] Providers + +------+ + | Care Machine Maintenance Repairer Name | Role | Phone | [...] [address] | | | | | [place], | [place], | | | | | [place] [address] | [place] [address] | | | | | [phone] | [phone] | | | | | | | [...] | | | | | | [place], | | | | | | [place] [address] | | | | | | [phone] | | | | | | | | +--------+ + + + + | 05/01/ | Procedure | Cardiology | | | | 2019 | visit | | | | +--------+ + + + + | 05/01/ | Office | Cardiology | [place], | | | 2019 | Visit | | [place] [address] | | | | | | [place], | | | | | | [place] [address] | | | | | | [phone] | | | | | | | | +--------+ + + + + | 05/21/ | Implant | Cardiology | Daljit Singletary, | Remote Device | 2019 | Monitor | | MD [address] [place] | Interrogation | | | | | [place], | (Primary Dx); | | | | | [place] [address] | Pacemaker; | | | | | [phone] | Sinoatrial node | | | | [...] Resulting Agency Comment | + + | [facility] | + + + +---------+ + + [...] Resulting Agency Comment | + + | [facility] | + + + +---------+ [...] Resulting Agency Comment | + + | [facility] | + + + +---------+ + + [...] Resulting Agency Comment | + + | [facility] | + + + +---------+ [...] Resulting Agency Comment | + + | [facility] | + + + +---------+ + + | Performing | Address | City/State/Zipcode | Phone Number | | Organization | | | | + +---------+ + + | EXTERNAL LAB | | | | + +---------+ + + External Lab: [facility] (11/05/2016 10:20 AM PST) + +-------+ + + + | Component | Value | Ref Range | Performed | Pathologist | | | | | At | Signature | + +-------+ + + + | [facility], | 27 | 13 - 39 | EXTERNAL | | | External | | | LAB | | + +-------+ + + + + + | Resulting Agency Comment | + + | [facility] | + + + +---------+ + + [...] Resulting Agency Comment | + + | [facility] | + + + +---------+ + [...] Resulting Agency Comment | + + | [facility] | + + + +---------+ + + [...] Resulting Agency Comment | + + | [facility] | + + + +---------+ + [...] Resulting Agency Comment | + + | [facility] | + + + +---------+ + [...] Resulting Agency Comment | + + | [facility] | + + + +---------+ + + [...] Resulting Agency Comment | + + | [facility] | + + + +---------+ + [...] Resulting Agency Comment | + + | [facility] | + + + +---------+ + + [...] Agency Comment | + + | [facility] | + + + +---------+ + [...] Resulting Agency Comment | + + | [facility] | + + + +---------+ + + [...] Resulting Agency Comment | + + | [facility] | + + + +---------+ [...] Resulting Agency Comment | + + | [facility] | + + + +---------+ + + [...]
--- OUTSIDE RECORDS SUMMARY | ~2020-04-13 | XMS | Encounter Summary ---
Demographics + + + | Address | [address] | | | [place] [address] | + + + | Home Phone [...] Providers + +------+ + | Care Back Tender Fourdrinier Name | Role | Phone | + [...] + | 07/01/ | Telephone | [facility] | Daljit Singletary, | Other (EKG) | | 2017 | | CARDIOLOGY [address] | MD [address] [place] | | | | | [place], | [place], | | | | | [place] [address] | [place] [address] | | | | | [phone] | [phone] | | | | | | | [...] | | | | | | [place] [address] | | | | | | [phone] | | | | | | | | +--------+ + + + + | 05/01/ | Procedure | Cardiology | | | | 2019 | visit | | | | +--------+ + + + + | 05/01/ | Office | Cardiology | [place]via, | | | 2019 | Visit | | PARISA [place] [address] | | | | | | [place], | | | | | | [place] [address] | | | | | | [phone] | | | | | | | | +--------+ + + + + | 05/21/ | Implant | Cardiology | Daljit Singletary, | Remote Device | | 2019 | Monitor | | [address] [facility] | Interrogation | | | | | [place], | (Primary Dx); | | | | | [place] [address] | Pacemaker; | | | | | [phone] | Sinoatrial node | | | | | | dysfunction (HCC) | | | | | | with symptomatic | | | | | | bradycardia | +--------+ + + + + documented as of this encounter Visit Diagnoses Not on filedocumented in this encounter"
--- OUTSIDE RECORDS SUMMARY | ~2020-04-13 | XMS | Encounter Summary ---
Demographics + + + | Address | [address] | | | [place] [address] | + + + | Home Phone [...] Providers + +------+ + | Care Marine Cargo Surveyor Name | Role | Phone | + +------+ + PCP | Unavailable | + +------+ + Encounter Details +--------+ + + + + | Date | Type | Department | Care Team | Description | +--------+ + + + + | 06/17/ | Hospital | [facility] | | | | 2007 | Encounter | MED CTR EMERGENCY | | | | | | [place] [address] | | | | | | [place] | | | | | | [address] | | | | | | [phone] | | | +--------+ + + + [...] | | | | | | [place] [address] | | | | | | [phone] | | | | | | | | +--------+ + + + + | 05/01/ | Procedure | Cardiology | | | | 2019 | visit | | | | +--------+ + + + + | 05/01/ | Office | Cardiology | [place], | | | 2019 | Visit | | [address] | | | | | | [place], | | | | | | [place] [address] | | | | | | [phone] | | | | | | | | +--------+ + + + + | 05/21/ | Implant | Cardiology | Daljit Singletary, | Remote Device | 2019 | Monitor | | [address] [place] [place] | Interrogation | | | | | [place], | (Primary Dx); | | | | | [place] [address] | Pacemaker; | | | | | [phone] | Sinoatrial node | | | | | | dysfunction (HCC) | | | | | | with symptomatic | | | | | | bradycardia | +--------+ + + + + documented as of this encounter Visit Diagnoses Not on filedocumented in this encounter"
--- OUTSIDE RECORDS SUMMARY | ~2020-04-13 | XMS | Encounter Summary ---
Demographics + + + | Address | [address] | | | [place] [address] | + + + | Home Phone [...] Team Providers + +------+ + | Care Short Story Writer Name | Role | Phone | [...] [address] | | | | | | [place], [place] | (Fax) | | | | | [address] | | | | | | [phone] | | | +--------+ + + + [...] | | | | | | [place] [address] | | | | | | [phone] | | | | | | | | +--------+ + + + + | 05/01/ | Procedure | Cardiology | | | | 2019 | visit | | | | +--------+ + + + + | 05/01/ | Office | Cardiology | [place], | | | 2019 | Visit | | PARISA [place] [address] | | | | | | [place], | | | | | | [place] [address] | | | | | | [phone] | | | | | | | | +--------+ + + + + | 05/21/ | Implant | Cardiology | Daljit Singletary, | Remote Device | | 2019 | Monitor | | [address] [place] | Interrogation | | | | | [place], | (Primary Dx); | | | | | [place] [address] | Pacemaker; | | | | | [phone] | Sinoatrial node | | | | | | dysfunction (HCC) | | | | | | with symptomatic | | | | | | bradycardia | +--------+ + + + + documented as of this encounter Visit Diagnoses Not on filedocumented in this encounter"
--- OUTSIDE RECORDS SUMMARY | ~2020-04-13 | XMS | Encounter Summary ---
Demographics + + + | Address | [address] | | | [place] [address] | + + + | Home Phone [...] Team Providers + +------+ + | Care Agriscience Teacher Name | Role | Phone | [...] + + | 08/31/ | Refill | [facility] | Kirk French | Medication Refill | | 2018 | | [facility] | MD [address] | | | | | [facility] | | | | | [address] | [place] [address] | | | | | [place], [place] | [phone] | | | | | [address] | | | | | | [phone] | | | +--------+--------+ + + + [...] | | | | | | [place] [address] | | | | | | [phone] | | | | | | | | +--------+ + + + + | 05/01/ | Procedure | Cardiology | | | | 2019 | visit | | | | +--------+ + + + + | 05/01/ | Office | Cardiology | [place], | | | 2019 | Visit | | PARISA Vernon [address] | | | | | | [place], | | | | | | [place] [address] | | | | | | [phone] | | | | | | | | +--------+ + + + + | 05/21/ | Implant | Cardiology | Daljit Singletary, | Remote Device | | 2019 | Monitor | | [address] [facility] | Interrogation | | | | | [place], | (Primary Dx); | | | | | [place] [address] | Pacemaker; | | | | | [phone] | Sinoatrial node | | | | | | dysfunction (HCC) | | | | | | with symptomatic | | | | | | bradycardia | +--------+ + + + + documented as of this encounter Visit Diagnoses Not on filedocumented in this encounter"
--- OUTSIDE RECORDS SUMMARY | ~2020-04-13 | XMS | Encounter Summary ---
Demographics + + + | Address | [address] | | | [place] [address] | + + + | Home Phone [...] Providers + +------+ + | Care Skein Drier Name | Role | Phone | [...] | | | [address] [place], [place] | [address] | | | | | [address] | | | | | | [phone] | | | +--------+ + + + [...] W | | | | | | [place], | | | | | | [place] [address] | | | | | | [phone] | | | | | | | | +--------+ + + + + | 05/01/ | Procedure | Cardiology | | | | 2019 | visit | | | | +--------+ + + + + | 05/01/ | Office | Cardiology | [place], | | | 2019 | Visit | | [address] | | | | | | [place], | | | | | | [place] [address] | | | | | | [phone] | | | | | | | | +--------+ + + + + | 05/21/ | Implant | Cardiology | Daljit Singletary, | Remote Device | | 2020 | Monitor | | [address] [facility] | Interrogation | | | | | [place], | (Primary Dx); | | | | | [place] [address] | Pacemaker; | | | | | [phone] | Sinoatrial node | | | | [...]
--- OUTSIDE RECORDS SUMMARY | ~2020-04-13 | XMS | Encounter Summary ---
Demographics + + + | Address | [address] | | | [place] [address] | + + + | Home Phone [...] +------+ + | Care Speech And Language Tutor Name | Role | Phone | [...] W | question) | | | | [place], | [place], | | | | | [place] [address] | [place] [address] | | | | | [phone] | [phone] | | | | | | | [...] | | | | | | [place] [address] | | | | | | [phone] | | | | | | | [...] | | | | | | [place] [address] | | | | | | [phone] | | | | | | | | +--------+ + + + + | 05/21/ | Implant | Cardiology | Daljit Singeltary, | Remote Device | | 2019 | Monitor | | [address] [place] | Interrogation | | | | | [place], | (Primary Dx); | | | | | [place] [address] | Pacemaker; | | | | | [phone] | Sinoatrial node | | | | | | dysfunction ([facility]) | | | | | | with symptomatic | | | | | | bradycardia | +--------+ + + + + documented as of this encounter Visit Diagnoses Not on filedocumented in this encounter"
--- OUTSIDE RECORDS SUMMARY | ~2020-04-13 | XMS | Encounter Summary ---
Demographics + + + | Address | [address] | | | [place] [address] | + + + | Home Phone [...] + +------+ + | Care Sales Representative Health Insurance Name | Role | Phone | + +------+ + | Kirk French MD | PCP | | + +------+ + Encounter Details +--------+ + + + + | Date | Type | Department | Care Team | Description | +--------+ + + + + | 11/16/ | Hospital | [facility] | Kirk French | Aneurysm (HCC) | | 2017 | Encounter | MED CTR ULTRASOUND | D, MD [address] | | | | | [address] [place] | [address] | | | | | [place], [place] | [place] [address] | | | | | [address] | [phone] | | | | | [phone] | | | | | | | [...] + + + +---------+ + + | [place]-3 Fatty | CAPS, one capsule by | [...] W | | | | | | [place], | | | | | | [place] [address] | | | | | | [phone] | | | | | | | | +--------+ + + + + | 05/01/ | Procedure | Cardiology | | | | 2019 | visit | | | | +--------+ + + + + | 05/01/ | Office | Cardiology | [place], | | | 2019 | Visit | | [address] | | | | | | [place], | | | | | | [place] [address] | | | | | | [phone] | | | | | | | | +--------+ + + + + | 05/21/ | Implant | Cardiology | Daljit Singletary, | Remote Device | | 2020 | Monitor | | [facility] | Interrogation | | | | | [place], | (Primary Dx); | | | | | [place] [address] | Pacemaker; | | | | | [phone] | Sinoatrial node | | | | [...] Screening | Imaging | Routin | Aneurysm ([facility]) | 1 Occurrences | | | | e | | starting 11/16/2017 | | | | | | until 11/16/2017 | + +---------+--------+ + + documented as of this encounter Visit Diagnoses + + | Diagnosis | + + | Aneurysm (HCC) Aneurysm of unspecified site | + + documented in this encounter"
--- OUTSIDE RECORDS SUMMARY | ~2020-04-13 | XMS | Encounter Summary ---
Demographics + + + | Address | [address] | | | [place] [address] | + + + | Home Phone [...] Team Providers + +------+ + | Care Typing Section Chief Name | Role | Phone | [...] 2016 | | CARDIOLOGY [address] | PHOTOSTATIC COPY MAKER [address] | | | | | [place], | [place], [place] | | | | | [place] [address] | [address] | | | | | [phone] | | | +--------+--------+ + + + [...] W | | | | | | [place], | | | | | | [place] [address] | | | | | | [phone] | | | | | | | | +--------+ + + + + | 05/01/ | Procedure | Cardiology | | | | 2019 | visit | | | | +--------+ + + + + | 05/01/ | Office | Cardiology | Silvia, | | | 2019 | Visit | | [address] | | | | | | [place], | | | | | | [place] [address] | | | | | | [phone] | | | | | | | | +--------+ + + + + | 05/21/ | Implant | Cardiology | Daljit Singletary, | Remote Device | | 2019 | Monitor | | [address] [facility] | Interrogation | | | | | [place], | (Primary Dx); | | | | | [place] [address] | Pacemaker; | | | | | [phone] | Sinoatrial node | | | | | | dysfunction (HCC) | | | | | | with symptomatic | | | | | | bradycardia | +--------+ + + + + documented as of this encounter Visit Diagnoses Not on filedocumented in this encounter"
--- OUTSIDE RECORDS SUMMARY | ~2020-04-13 | XMS | Encounter Summary ---
Demographics + + + | Address | [address] [place] [address] [address] | | | [place] [address] | + + + | Home Phone [...] [place] | | | | | [address] | | + + + + + Care Team Providers + +------+ + | Care Neon Tube Bender Name | Role | Phone | [...] | | | [address] | [facility] [place] | | | | | Mailcode: [place] | [address] | | | | | for Health and | [phone] | | | | | [facility] [address] | | | | | | [place], [place] | | | | | | [address] | | | | | | [phone] | | | +--------+ + + + [...]
--- OUTSIDE RECORDS SUMMARY | ~2020-04-13 | XMS | Encounter Summary ---
Demographics + + + | Address | [address] | | | [place] [address] | + + + | Home Phone [...] Team Providers + +------+ + | Care Spinning Mule Operator Name | Role | Phone [...] [address] | | | | | | [place], [place] | (Fax) | | | | | [address] | | | | | | [phone] | | | +--------+ + + + [...] | | | | | | [place] [address] | | | | | | [phone] | | | | | | | | +--------+ + + + + | 05/01/ | Procedure | Cardiology | | | | 2019 | visit | | | | +--------+ + + + + | 05/01/ | Office | Cardiology | [place]via, | | | 2019 | Visit | | [address] | | | | | | [place], | | | | | | [place] [address] | | | | | | [phone] | | | | | | | | +--------+ + + + + | 05/21/ | Implant | Cardiology | Daljit Singletary, | Remote Device | | 2019 | Monitor | | [address] [place] | Interrogation | | | | | [place], | (Primary Dx); | | | | | [place] [address] | Pacemaker; | | | | | [phone] | Sinoatrial node | | | | | | dysfunction (HCC) | | | | | | with symptomatic | | | | | | bradycardia | +--------+ + + + + documented as of this encounter Visit Diagnoses Not on filedocumented in this encounter"
--- OUTSIDE RECORDS SUMMARY | ~2020-04-13 | XMS | Encounter Summary ---
Demographics + + + | Address | [address] | | | [place] [address] | + + + | Home Phone [...] Team Providers + +------+ + | Care Trackmobile Operator Name | Role | Phone | [...] 2019 | | GASTROENTEROLOGY | [address] [place], [place] | | | | | [address] | [address] [place], [place] | | | | | [address] [place], [place] | [address] | | | | | [address] | | | | | | [phone] | | | +--------+ + + + [...] | | | | | | [place] [address] | | | | | | [phone] | | | | | | | [...] | | | | | | [place] [address] | | | | | | [phone] | | | | | | | | +--------+ + + + + | 05/21/ | Implant | Cardiology | Daljit Singletary, | Remote Device | 2019 | Monitor | | [address] [place] | Interrogation | | | | | [place], | (Primary Dx); | | | | | [place] [address] | Pacemaker; | | | | | [phone] | Sinoatrial node | | | | | | dysfunction (HCC) | | | | | | with symptomatic | | | | | | bradycardia | +--------+ + + + + documented as of this encounter Visit Diagnoses Not on filedocumented in this encounter"
--- OUTSIDE RECORDS SUMMARY | ~2020-04-13 | XMS | Encounter Summary ---
Demographics + + + | Address | [address] | | | [place] [address] | + + + | Home Phone [...] Providers + +------+ + | Care Chief Of Planning Name | Role | Phone | [...] + | 01/02/ | Telephone | [facility] | Daljit Singletary, | Other (chest pain) | | 2018 | | CARDIOLOGY [address] | MD [address] [place] | | | | | [place], | [place], | | | | | [place] [address] | [place] [address] | | | | | [phone] | [phone] | | | | | | | [...] | | | | | | [place] [address] | | | | | | [phone] | | | | | | | | +--------+ + + + + | 05/01/ | Procedure | Cardiology | | | | 2019 | visit | | | | +--------+ + + + + | 05/01/ | Office | Cardiology | [place], | | | 2019 | Visit | | [address] | | | | | | [place], | | | | | | [place] [address] | | | | | | [phone] | | | | | | | | +--------+ + + + + | 05/21/ | Implant | Cardiology | Daljit Singletary, | Remote Device | | 2019 | Monitor | | [address] | Interrogation | | | | | [place], | (Primary Dx); | | | | | [place] [address] | Pacemaker; | | | | | [phone] | Sinoatrial node | | | | | | dysfunction ([facility]) | | | | | | with symptomatic | | | | | | bradycardia | +--------+ + + + + documented as of this encounter Visit Diagnoses Not on filedocumented in this encounter"
--- OUTSIDE RECORDS SUMMARY | ~2020-04-13 | XMS | Encounter Summary ---
Demographics + + + | Address | [address] | | | [place] [address] | + + + | Home Phone [...] Providers + +------+ + | Care Yarn Wrapper Name | Role | Phone | + [...] + + | 04/12/ | Telephone | [facility] | Daljit Singletary, | Other (issues with | | 2017 | | CARDIOLOGY [address] | MD [address] [place] [place] | low blood pressure | | | | [place], | [place], | and dizziness) | | | | [place] [address] | [place] [address] | | | | | [phone] | | | | | | | [...] | | | | | | [place] [address] | | | | | | [phone] | | | | | | | [...] | | | | | | [place] [address] | | | | | | [phone] | | | | | | | | +--------+ + + + + | 05/21/ | Implant | Cardiology | Daljit Singletary, | Remote Device | 2019 | Monitor | | [address] [place] | Interrogation | | | | | [place], | (Primary Dx); | | | | | [place] [address] | Pacemaker; | | | | | [phone] | Sinoatrial node | | | | | | dysfunction (HCC) | | | | | | with symptomatic | | | | | | bradycardia | +--------+ + + + + documented as of this encounter Visit Diagnoses Not on filedocumented in this encounter"
--- OUTSIDE RECORDS SUMMARY | ~2020-04-13 | XMS | Encounter Summary ---
Demographics + + + | Address | [address] | | | [place] [address] | + + + | Home Phone [...] | 06/17/ | Telephone | [facility] [place] | [place]via, | Lab Order (due for | | 2015 | | CARDIOLOGY [address] | [address] | fasting labs prior | | | | [place], | [place], | to appt) | | | | [place] [address] | [place] [address] | | | | | [phone] | [phone] | | | | | | | [...] W | | | | | | [place], | | | | | | [place] [address] | | | | | | [phone] | | | | | | | | +--------+ + + + + | 05/01/ | Procedure | Cardiology | | | | 2019 | visit | | | | +--------+ + + + + | 05/01/ | Office | Cardiology | [place], | | | 2019 | Visit | | [address] | | | | | | [place], | | | | | | [place] [address] | | | | | | [phone] | | | | | | | | +--------+ + + + + | 05/21/ | Implant | Cardiology | Daljit Singletary, | Remote Device | 2019 | Monitor | | [address] [place] | Interrogation | | | | | [place], | (Primary Dx); | | | | | [place] [address] | Pacemaker; | | | | | [phone] | Sinoatrial node | | | | [...]
--- OUTSIDE RECORDS SUMMARY | ~2020-04-13 | XMS | Encounter Summary ---
Demographics + + + | Address | [address] | | | [place] [address] | + + + | Home Phone [...] + +------+ + | Care Crime Scene Evidence Technician Name | Role | Phone | [...] ROUSE | | | | | [place], [place] | [address] | | | | | [address] | [place] [address] | | | | | [phone] | | | | | | | [...] W | | | | | | [place], | | | | | | [place] [address] | | | | | | [phone] | | | | | | | | +--------+ + + + + | 05/01/ | Procedure | Cardiology | | | | 2019 | visit | | | | +--------+ + + + + | 05/01/ | Office | Cardiology | [place], | | | 2019 | Visit | | [address] | | | | | | [place], | | | | | | [place] [address] | | | | | | [phone] | | | | | | | | +--------+ + + + + | 05/21/ | Implant | Cardiology | Daljit Singletary, | Remote Device | 2019 | Monitor | | MD [address] [place] | Interrogation | | | | | [place], | (Primary Dx); | | | | | [place] [address] | Pacemaker; | | | | | [phone] | Sinoatrial node | | | | [...]
--- OUTSIDE RECORDS SUMMARY | ~2020-04-13 | XMS | Encounter Summary ---
Demographics + + + | Address | [address] | | | [place] [address] | + + + | Home Phone [...] Team Providers + +------+ + | Care Recruit Instructor Name | Role | Phone | [...] | | | type | | [place] [address] | | | | | Unintentiona | | Phone: | | | | | l weight | | [phone] | | | | | loss | | Fax: | | | | | Pacemaker | | [phone] | | | | | Opioid type [...] + + | 01/21/ | Hospital | [facility] | Darin Gandhi | Rectal bleeding; | | 2019 | Encounter | MED CTR MP INTRA OP | MD Jacek [address] | Diarrhea, | | | | [address] | [address] [place] | unspecified type; | | | | [place], [place] | [place] [address] | Unintentional weight | | | | [address] | [phone] | loss; Opioid type | | | | [phone] | | dependence, | | | | | | continuous ([facility]); | | | | | | Allergy [...] | | | | | | [place] [address] | | | | | | [phone] | | | | | | | | +--------+ + + + + | 05/01/ | Procedure | Cardiology | | | | 2019 | visit | | | | +--------+ + + + + | 05/01/ | Office | Cardiology | [place], | | | 2019 | Visit | | [address] | | | | | | [place], | | | | | | [place] [address] | | | | | | [phone] | | | | | | | | +--------+ + + + + | 05/21/ | Implant | Cardiology | Daljit Singletary, | Remote Device | | 2019 | Monitor | | [address] [place] | Interrogation | | | | | [place], | (Primary Dx); | | | | | [place] [address] | Pacemaker; | | | | | [phone] | Sinoatrial node | | | | [...] + + | Coronary artery disease involving platinum coronary artery of platinum heart without | | angina pectoris | [...]
--- OUTSIDE RECORDS SUMMARY | ~2020-04-13 | XMS | Encounter Summary ---
Demographics + + + | Address | [address] | | | [place] [address] | + + + | Home Phone [...] Team Providers + +------+ + | Care Marble Supervisor Name | Role | Phone | + +------+ + PCP | Unavailable | + +------+ + Encounter Details +--------+ + + + + | Date | Type | Department | Care Team | Description | +--------+ + + + + | 06/25/ | [facility] | [facility] | Daljit Singletary, | | | 2008 | Encounter | MED CTR XRAY [address] | [address] [place] | | | | | [place] | [place], | | | | | [place] [address] | [place] [address] | | | | | [phone] | | | | | | | [...] | | | | | | [place] [address] | | | | | | [phone] | | | | | | | [...] | | | | | | [place] [address] | | | | | | [phone] | | | | | | | | +--------+ + + + + | 05/21/ | Implant | Cardiology | Daljit Singletary, | Remote Device | 2019 | Monitor | | [address] [place] | Interrogation | | | | | [place], | (Primary Dx); | | | | | [place] [address] | Pacemaker; | | | | | [phone] | Sinoatrial node | | | | | | dysfunction (HCC) | | | | | | with symptomatic | | | | | | bradycardia | +--------+ + + + + documented as of this encounter Visit Diagnoses Not on filedocumented in this encounter"
--- OUTSIDE RECORDS SUMMARY | ~2020-04-13 | XMS | Encounter Summary ---
Demographics + + + | Address | [address] | | | [place] [address] | + + + | Home Phone [...] Providers + +------+ + | Care Flatwork Supervisor Name | Role | Phone | [...] | | | Diarrhea/ | [address] | [place], [place] | | | | | Rectal | [place] | [address] | | | | | Bleeding | [address] | Phone: | | | | | from [facility] | Phone: | [phone] | | | | | referral. | [phone] | Fax: | | | | | | Fax: | [phone] | | | | | | [phone] | | + + + + + [...] + + | 01/21/ | Telephone | [facility] | Kirk French | Other (wanted to let | | 2019 | | [facility] | MD Brea [address] | us know the St. | | | | [facility] [address] | [address] | Apolonia'gena cancelled his | | | | [address] | [place] [address] | appointment for a | | | | [place], [place] | [phone] | colonoscopy) | | | | [address] | | | | | | [phone] | | | +--------+ + + + [...] | | | | | | [place] [address] | | | | | | [phone] | | | | | | | [...] | | | | | | [place] [address] | | | | | | [phone] | | | | | | | | +--------+ + + + + | 05/21/ | Implant | Cardiology | Daljit Singletary, | Remote Device | | 2019 | Monitor | | MD [address] [place] | Interrogation | | | | | [place], | (Primary Dx); | | | | | [place] [address] | Pacemaker; | | | | | [phone] | Sinoatrial node | | | | [...]
--- OUTSIDE RECORDS SUMMARY | ~2020-04-13 | XMS | Encounter Summary ---
Demographics + + + | Address | [address] | | | [place] [address] | + + + | Home Phone [...] Providers + +------+ + | Care Advertising Layout Worker Name | Role | Phone [...] | disease involving | | | | [place], | [place], | [place] coronary | | | | [place] [address] | [place] [address] | artery without | | | | [phone] | [phone] | angina pectoris | | | | [...] W | | | | | | [place], | | | | | | [place] [address] | | | | | | [phone] | | | | | | | | +--------+ + + + + | 05/01/ | Procedure | Cardiology | | | | 2019 | visit | | | | +--------+ + + + + | 05/01/ | Office | Cardiology | [place]via, | | | 2019 | Visit | | [address] | | | | | | [place], | | | | | | [place] [address] | | | | | | [phone] | | | | | | | | +--------+ + + + + | 05/21/ | Implant | Cardiology | Daljit Singletary, | Remote Device | | 2020 | Monitor | | MD [address] [facility] | Interrogation | | | | | [place], | (Primary Dx); | | | | | [place] [address] | Pacemaker; | | | | | [phone] | Sinoatrial node | | | | [...] MD | | | | | | ([id number]) on 08/29/2015 | | | | | [...] disease involving [place] coronary artery without angina pectoris - | | Primary | + + documented in this encounter"
--- OUTSIDE RECORDS SUMMARY | ~2020-04-13 | XMS | Clinical Summary ---
Demographics + + + | Address | [address] | | | [place] [address] | + + + | Home Phone | | + + + | Preferred Language | Unknown | + + + | Marital Status | | + + + | Jehovah'S Witness Affiliation | 1013 | + + + | Race | Unknown | + + + | Ethnic Group | Unknown | + + + Author + + + | Author | [facility] (Historical as of | | | 07-08-19) | + + + | Organization | [facility] (Historical as of | | | 07-08-19) [...] Providers + +------+ + | Care Senior Control Systems Engineer Name | Role | Phone [...] + | AUTO INSURANCE | AUTO | [id number] | | | | | | INSURA | | | | | | | NCE | | | | | | | GENERI | | | | | | | C | | | | | + +--------+ +------+-------+ + | AUTO INSURANCE | AUTO | [id number] | | | | | | INSURA | [id number] | | | | | | NCE | | | | | | | GENERI | | | | | | | C | | | | | + +--------+ +------+-------+ + | MEDICARE | MEDICA | [id number] | | | [address] | | | RE | | | | [place], [place] [address] | | | IP-OP | | | | | + +--------+ +------+-------+ + | [facility] | [place] | [id number] | | | | | | | [...] | Self | [birth year] | Home: | [address] | | | al/Fam | | [address] | [address] | [address] [place], [place] | | | roxanne | | | [address] | [address] | + +--------+ +--------+ + + | AMILCAR GAY | Third | Self | [birth year] | Home: | [address] | | | Libertarian | | 9 | +- | [place], [place] | | | Liabil | | | [address] | [address] | | | ity | | | | | + +--------+ +--------+ + + | AMILCAR GAY | Third | Self | [birth year] | Home: | [address] | | | Libertarian | | 1960 | +- | [place], [place] | | | Liabil | | | [address] | [address] | | | ity | | | | | + +--------+ +--------+ + +
--- OUTSIDE RECORDS SUMMARY | ~2020-04-13 | XMS | Encounter Summary ---
Demographics + + + | Address | [address] | | | [place] [address] | + + + | Home Phone [...] Providers + +------+ + | Care Filter Washer Name | Role | Phone | + +------+ + | Michael Amanda DO | PCP | | + +------+ + Encounter Details +--------+ + + + + | Date | Type | Department | Care Team | Description | +--------+ + + + + | 06/26/ | Hospital | [facility] | Michael Amanda, | Diplopia | | 2012 | Encounter | MED CTR LABORATORY | DO [address] | | | | | [address] [facility] [place] | [place], [place] | | | | | [place], [place] | [address] | | | | | [address] | | | | | | [phone] | | | +--------+ + + + [...] + + + +---------+ + + | Mason-3 Fatty | CAPS, one capsule by | [...] W | | | | | | [facility] [place], | | | | | | [place] [address] | | | | | | [phone] | | | | | | | | +--------+ + + + + | 05/01/ | Procedure | Cardiology | | | | 2019 | visit | | | | +--------+ + + + + | 05/01/ | Office | Cardiology | [place], | | | 2019 | Visit | | [address] W | | | | | | [facility] [place], | | | | | | [place] [address] | | | | | | [phone] | | | | | | | | +--------+ + + + + | 05/21/ | Implant | Cardiology | Daljit Singletary, | Remote Device | | 2020 | Monitor | | MD [address] [facility] | Interrogation | | | | | [place], | (Primary Dx); | | | | | [place] [address] | Pacemaker; | | | | | [phone] | Sinoatrial node | | | | [...] | mg/L indicate possible | | [facility] | | | | infection, trauma, | [...] [address] | [place] | [phone] | | [facility] | | [address] | | | - LABORATORY | | | | + + + + + | [facility] | [address] | [place], [place] | | | [facility] | | [address], [facility] | | | [...] [facility] | | | | [place] [facility] | | MEDICAL | | | [...] + | [facility] | [address] [facility] [address] | [place] | [phone] | | [facility] | | [address] | | | - LABORATORY | | | | + + + + + | [facility] | [address] [facility] [address] | [place], [place] | | | [facility] | | [address] [place] [address] | | | - LABORATORY | | [...] + | [facility] | [address] [facility] [address] | [place] | [phone] | | [facility] | | [address] | | | - LABORATORY | | | | + + + + + | [facility] | [address] | [place], [place] | | | [facility] | | [address], [facility] | | | [...] + | [facility] | [address] [facility] [address] | [place], [place] | [phone] | | [facility] | | [address] | | | - LABORATORY | | | | + + + + + | [facility] | [address] [facility] [address] | [place] | | | [facility] | | [address], [facility] | | | [...] + | [facility] | [address] [facility] [address] | [place] | [phone] | | [facility] | | [id number] | | | - LABORATORY | | | | + + + + + | [facility] | [address] | [place], [place] | | | [facility] | | [address] [place] [address] | | | - LABORATORY | | [...] + | [facility] | [address] | [place] | [phone] | | [facility] | | [address] | | | - LABORATORY | | | | + + + + + | [facility] | [address] | [place] | | | [facility] | | [id number] [place] [address] | | | - LABORATORY | | | | + + + + + documented in this encounter Visit Diagnoses + + | Diagnosis | + + | Diplopia | + + documented in this encounter"
--- OUTSIDE RECORDS SUMMARY | ~2020-04-13 | XMS | Encounter Summary ---
Demographics + + + | Address | [address] | | | [place] [address] | + + + | Home Phone [...] + +------+ + | Care Swimming Pool Installer Name | Role | Phone | [...] + | 11/05/ | Telephone | [facility] | Daljit Singletary, | Chest Pain | | 2016 | | CARDIOLOGY [address] | MD [address] | | | | | [place], | [place], | | | | | [place] [address] | [place] [address] | | | | | [phone] | [phone] | | | | | | | [...] W | | | | | | [place], | | | | | | [place] [address] | | | | | | [phone] | | | | | | | | +--------+ + + + + | 05/01/ | Procedure | Cardiology | | | | 2019 | visit | | | | +--------+ + + + + | 05/01/ | Office | Cardiology | Silvia, | | | 2019 | Visit | | PARISA [place] [address] | | | | | | [place], | | | | | | [place] [address] | | | | | | [phone] | | | | | | | | +--------+ + + + + | 05/21/ | Implant | Cardiology | Daljit Singletary, | Remote Device | | 2019 | Monitor | | [facility] | Interrogation | | | | | [place] [place], | (Primary Dx); | | | | | [place] [address] | Pacemaker; | | | | | [phone] | Sinoatrial node | | | | | | dysfunction (HCC) | | | | | | with symptomatic | | | | | | bradycardia | +--------+ + + + + documented as of this encounter Visit Diagnoses Not on filedocumented in this encounter"
--- OUTSIDE RECORDS SUMMARY | ~2020-04-13 | XMS | Encounter Summary ---
Demographics + + + | Address | [address] | | | [place] [address] | + + + | Home Phone [...] Providers + +------+ + | Care Fiscal Analyst Name | Role | Phone | [...] + + | 01/01/ | Telephone | [facility] | Kirk French | Other (Pacemaker) | | 2020 | | [facility] | MD Bre[address] | | | | | [facility] | [address] | | | | | [address] | [place] [address] | | | | | [place], [place] | [phone] | | | | | [address] | | | | | | [phone] | | | +--------+ + + + [...] | | | | | | [place] [address] | | | | | | [phone] | | | | | | | | +--------+ + + + + | 05/01/ | Procedure | Cardiology | | | | 2019 | visit | | | | +--------+ + + + + | 05/01/ | Office | Cardiology | Silvia, | | | 2019 | Visit | | PARISA Vernon [address] | | | | | | [place], | | | | | | [place] [address] | | | | | | [phone] | | | | | | | | +--------+ + + + + | 05/21/ | Implant | Cardiology | Daljit Singletary, | Remote Device | 2019 | Monitor | | [address] | Interrogation | | | | | [place], | (Primary Dx); | | | | | [place] [address] | Pacemaker; | | | | | [phone] | Sinoatrial node | | | | | | dysfunction (HCC) | | | | | | with symptomatic | | | | | | bradycardia | +--------+ + + + + documented as of this encounter Visit Diagnoses Not on filedocumented in this encounter"
--- OUTSIDE RECORDS SUMMARY | ~2020-04-13 | XMS | Encounter Summary ---
Demographics + + + | Address | [address] | | | [place] [address] | + + + | Home Phone [...] Team Providers + +------+ + | Care Debug Technician Name | Role | Phone | [...] unspecified | [address] | [address] | | | | | type | [address] | [place], | | | | | Procedures | [place], | [place] | | | | | [place] | [place] [address] | [address] | | | | | Stress Test | Phone: | Phone: | | | | | (Vasodilator | [phone] | [phone] | | | | | ) CHG | Fax: | Fax: | | | | | MYOCARDIAL | [phone] | [phone] | | | | | SPECT | [...] | type | [address] | [address] | | | | | Procedures | [place] | [place], | | | | | FUP | [place] | [place] [address] | | | | | | [address] | Phone: | | | | | | Phone: | [phone] | | | | | | [phone] | Fax: | | | | | | Fax: | [phone] | | | | | | [phone] | | +--------+ + + + + + Encounter Details +--------+---------+ + + + | Date | Type | Department | Care Team | Description | +--------+---------+ + + + | 06/27/ | Office | [facility] | Sydin Singletary, | Pacemaker | | 2017 | Visit | CARDIOLOGY [address] | [address] [facility] | reprogramming/check | | | | [address] [place], | [place], | DO NOT DELETE | | | | [place] [address] | [place] [address] | (Primary Dx); Chest | | | | [phone] | [phone] | pain, unspecified | | | | [...] of non-critical coronary artery d isease involving che[place]nak coronary artery of che[place]nak heart without angina pectoris, essential h ypertension, [...] that time, patient has been seen at [place] emergency department on 018 for chest pain [...] chefornak coronary artery of che[place]nak heart without angina pectoris Cannabis abuse, daily [...] mouth every evening 90 tablet 0 [facility] Natural [...] 3RD DOSE, CALL 911 100 tablet 3 [place]-3 Fatty Acids (SALMON OIL-1000 PO) CAPS, one [...] arrhythmia performed by Dr. Gambino at [facility] on 01/30/2013. Patient had spontaneous [...] to go back in 3 days to [place] for an attempt of ablation under general [...] PVCs. 2. Non-critical Coronary artery disease involving chefornak coronary artery of chefornak heart [facility] angina pectoris: A. Normal exercise sestamibi stress test on 05/25/09. [facility] by [facility] ed SPECT was 53%. B. Echocardiogram [...] cannot completely be ruled out . [facility] 12/25/13, shows non critical coronary [...] He is in a class I of [place] [employer] functiona l class. There is [...] of presyncope 05/28/10 [facility], thought to have vasovagal [...] reviewed and edited this note. Allyson Curtis, Electronics Commodity Manager 06/27/2018 I, Sydni Singletary MD, personally performed the services described in this documentation, as scribed in my presence and it is both accurate and complete. Allyson Curtis, Med Ass t 06/27/2018 14:15 Electronically signed by: Sydni Singletary MD [facility] 06/27/2018 Portions of this chart may have been created with ActiveTrak voice recognition software. Occasi onal wrong-word or [...] | | | | | | [place] [address] | | | | | | [phone] | | | | | | | | +--------+ + + + + | 05/01/ | Procedure | Cardiology | | | | 2019 | visit | | | | +--------+ + + + + | 05/01/ | Office | Cardiology | Silvia, | | | 2019 | Visit | | PARISA Vernon [address] | | | | | | [place], | | | | | | [place] [address] | | | | | | [phone] | | | | | | | | +--------+ + + + + | 05/21/ | Implant | Cardiology | Sydni Singletary, | Remote Device | 2019 | Monitor | | [address] [place] | Interrogation | | | | | [place], | (Primary Dx); | | | | | [place] [address] | Pacemaker; | | | | | [phone] | Sinoatrial node | | | | [...] SYDNI | | | | | | ([id number]) on 06/27/2018 | | | | | [...]
--- OUTSIDE RECORDS SUMMARY | ~2020-04-13 | XMS | Encounter Summary ---
Demographics + + + | Address | [address] | | | [place] [address] | + + + | Home Phone [...] Providers + +------+ + | Care Shop Firer/Fireman Name | Role | Phone | [...] | Implant | [facility] [place] | aDljit Singletary, | Remote Device | | 2019 | Monitor | CARDIOLOGY [address] | [address] [place] | Interrogation | | | | [place], | [place], | (Primary Dx); | | | | [place] [address] | [place] [address] | Presence of | | | | [phone] | [phone] | permanent cardiac | | | | [...] | | | | | | [place] [address] | | | | | | [phone] | | | | | | | | +--------+ + + + + | 05/01/ | Procedure | Cardiology | | | | 2019 | visit | | | | +--------+ + + + + | 05/01/ | Office | Cardiology | Silvia, | | | 2019 | Visit | | PARISA Vernon [address] | | | | | | [place], | | | | | | [place] [address] | | | | | | [phone] | | | | | | | | +--------+ + + + + | 05/21/ | Implant | Cardiology | Daljit Singletary, | Remote Device | | 2019 | Monitor | | [place] [address] [place] | Interrogation | | | | | [place], | (Primary Dx); | | | | | [place] [address] | Pacemaker; | | | | | [phone] | Sinoatrial node | | | | [...]
--- OUTSIDE RECORDS SUMMARY | ~2020-04-13 | XMS | Encounter Summary ---
Demographics + + + | Address | [address] | | | [place] [address] | + + + | Home Phone [...] Providers + +------+ + | Care Primary School Teacher Librarian Name | Role | Phone | + +------+ + | Kirk French MD | PCP | | + +------+ + Encounter Details +--------+ + + + + | Date | Type | Department | Care Team | Description | +--------+ + + + + | 04/07/ | Hospital | [facility] | Pia Akhtar | Spinal stenosis of | | 2016 | Encounter | MED CTR XRAY [address] | MD [address] | lumbar region | | | | [place] | [address] | | | | | [place] [address] | [place] [address] | | | | | [phone] | [phone] | | | | | | | [...] + + + +---------+ + + | Whitwell-3 Fatty | CAPS, one capsule by | [...] | | | | | | [place] [address] | | | | | | [phone] | | | | | | | | +--------+ + + + + | 05/01/ | Procedure | Cardiology | | | | 2019 | visit | | | | +--------+ + + + + | 05/01/ | Office | Cardiology | Silvia | | | 2019 | Visit | | Janeen, AMMONIA SOLUTION PREPARER [address] | | | | | | [place], | | | | | | [place] [address] | | | | | | [phone] | | | | | | | | +--------+ + + + + | 05/21/ | Implant | Cardiology | Daljit Singletary, | Remote Device | | 2020 | Monitor | | [address] [place] | Interrogation | | | | | [place], | (Primary Dx); | | | | | [place] [address] | Pacemaker; | | | | | [phone] | Sinoatrial node | | | | [...] | | | |Dictated and Signed by: Farncesco Solis MD | | Electronically signed: 04/07/2016 [...]
--- OUTSIDE RECORDS SUMMARY | ~2020-04-13 | XMS | Encounter Summary ---
Demographics + + + | Address | [address] | | | [place] [address] | + + + | Home Phone [...] Providers + +------+ + | Care Medical Supervisor Name | Role | Phone | [...] | on | GASTROENTEROLOGY | [address] [place] | | | | | [address] [place] | [address] [place], [place] | | | | | [address] [place], [place] | [address] | | | | | [address] | | | | | | [phone] | | | +--------+ + + + [...] | | | | | | [place] [address] | | | | | | [phone] | | | | | | | | +--------+ + + + + | 05/01/ | Procedure | Cardiology | | | | 2019 | visit | | | | +--------+ + + + + | 05/01/ | Office | Cardiology | Silvia, | | | 2019 | Visit | | PARISA Vernon [address] | | | | | | [place], | | | | | | [place] [address] | | | | | | [phone] | | | | | | | | +--------+ + + + + | 05/21/ | Implant | Cardiology | Daljit Singletary, | Remote Device | | 2019 | Monitor | | [address] [facility] | Interrogation | | | | | [address], | (Primary Dx); | | | | | [place] [address] | Pacemaker; | | | | | [phone] | Sinoatrial node | | | | | | dysfunction (HCC) | | | | | | with symptomatic | | | | | | bradycardia | +--------+ + + + + documented as of this encounter Visit Diagnoses Not on filedocumented in this encounter"
--- OUTSIDE RECORDS SUMMARY | ~2020-04-13 | XMS | Encounter Summary ---
Demographics + + + | Address | [address] | | | [place] [address] | + + + | Home Phone [...] Providers + +------+ + | Care Supervisor Shipping Room Name | Role | Phone | [...] + + | 08/30/ | Refill | [facility] | Kirk French | Medication Refill | | 2019 | | [facility] | MD [address] | | | | | PRIMARY CARE [address] | [address] | | | | | [address] | [place] [address] | | | | | [place], [place] | [phone] | | | | | [address] | | | | | | [phone] | | | +--------+--------+ + + + [...] | | | | | | [place] [address] | | | | | | [phone] | | | | | | | | +--------+ + + + + | 05/01/ | Procedure | Cardiology | | | | 2019 | visit | | | | +--------+ + + + + | 05/01/ | Office | Cardiology | Silvia, | | | 2019 | Visit | | PARISA Vernon [address] | | | | | | [place], | | | | | | [place] [address] | | | | | | [phone] | | | | | | | | +--------+ + + + + | 05/21/ | Implant | Cardiology | Daljit Singletary, | Remote Device | | 2019 | Monitor | | [address] [facility] | Interrogation | | | | | [place], | (Primary Dx); | | | | | [place] [address] | Pacemaker; | | | | | [phone] | Sinoatrial node | | | | | | dysfunction (HCC) | | | | | | with symptomatic | | | | | | bradycardia | +--------+ + + + + documented as of this encounter Visit Diagnoses Not on filedocumented in this encounter"
--- OUTSIDE RECORDS SUMMARY | ~2020-04-13 | XMS | Encounter Summary ---
Demographics + + + | Address | [address] | | | [place] [address] | + + + | Home Phone [...] Team Providers + +------+ + | Care Winch Truck Operator Name | Role | Phone [...] Show | | 2012 | | [facility] [place] | DO [address] | | | | | [address] | [place] | | | | | [place] | [address] | | | | | [address] | | | | | | [phone] | | | +--------+ + + + [...] | | | | | | [place], | | | | | | [place] [address] | | | | | | [phone] | | | | | | | | +--------+ + + + + | 05/01/ | Procedure | Cardiology | | | | 2019 | visit | | | | +--------+ + + + + | 05/01/ | Office | Cardiology | Silvia, | | | 2019 | Visit | | PARISA Vernon [address] | | | | | | [place], | | | | | | [place] [address] | | | | | | [phone] | | | | | | | | +--------+ + + + + | 05/21/ | Implant | Cardiology | Daljit Singletary, | Remote Device | 2019 | Monitor | | [address] | Interrogation | | | | | [place], | (Primary Dx); | | | | | [place] [address] | Pacemaker; | | | | | [phone] | Sinoatrial node | | | | | | dysfunction (HCC) | | | | | | with symptomatic | | | | | | bradycardia | +--------+ + + + + documented as of this encounter Visit Diagnoses Not on filedocumented in this encounter"
--- OUTSIDE RECORDS SUMMARY | ~2020-04-13 | XMS | Encounter Summary ---
Demographics + + + | Address | [address] | | | [place] [address] | + + + | Home Phone [...] Providers + +------+ + | Care Sales Team Recruiter Name | Role | Phone | [...] | | | | | region | [address] | | | | | | Procedures | [address] | | | | | | CT | [place], [place] | | | | | | Myelography | [address] | | | | | | Lumbar Spine | Phone: | | | | | | | [phone] | | | | | | | Fax: | | | | | | | [phone] | | +--------+--------+ + + + + [...] | | | | | region | [address] | | | | | | Procedures | [address] | | | | | | CT | [place], [place] | | | | | | Myelography | [address] | | | | | | Lumbar Spine | Phone: | | | | | | | [phone] | | | | | | | Fax: | | | | | | | [phone] | | +--------+--------+ + + + + Encounter Details +--------+ + + + + | Date | Type | Department | Care Team | Description | +--------+ + + + + | 04/07/ | Hospital | [facility] | Pia Akhtar | Spinal stenosis, | | 2016 | Encounter | MED CTR [address] | MD [address] | lumbar region | | | | [place], | [address] | | | | | [place] [address] | [place] [address] | | | | | [phone] | [phone] | | | | | | | [...] W | | | | | | [place], | | | | | | [place] [address] | | | | | | [phone] | | | | | | | | +--------+ + + + + | 05/01/ | Procedure | Cardiology | | | | 2019 | visit | | | | +--------+ + + + + | 05/01/ | Office | Cardiology | Silvia, | | | 2019 | Visit | | PARISA [address] | | | | | | [place], | | | | | | [place] [address] | | | | | | [phone] | | | | | | | | +--------+ + + + + | 05/21/ | Implant | Cardiology | Daljit Singletary, | Remote Device | | 2019 | Monitor | | [address] [place] | Interrogation | | | | | [place], | (Primary Dx); | | | | | [place] [address] | Pacemaker; | | | | | [phone] | Sinoatrial node | | | | [...]
--- OUTSIDE RECORDS SUMMARY | ~2020-04-13 | XMS | Encounter Summary ---
Demographics + + + | Address | [address] | | | [place] [address] | + + + | Home Phone [...] Team Providers + +------+ + | Care Quantitative Developer Name | Role | Phone | [...] [address] | | | | | [place], | [place], | | | | | [place] [address] | [place] [address] | | | | | [phone] | [phone] | | | | | | | [...] | | | | | | [place] [address] | | | | | | [phone] | | | | | | | [...] | | | | | | [place] [address] | | | | | | [phone] | | | | | | | | +--------+ + + + + | 05/21/ | Implant | Cardiology | Daljit Singletary, | Remote Device | | 2019 | Monitor | | [address] [place] | Interrogation | | | | | [address], | (Primary Dx); | | | | | [place] [address] | Pacemaker; | | | | | [phone] | Sinoatrial node | | | | | | dysfunction (HCC) | | | | | | with symptomatic | | | | | | bradycardia | +--------+ + + + + documented as of this encounter Visit Diagnoses Not on filedocumented in this encounter"
--- OUTSIDE RECORDS SUMMARY | ~2020-04-13 | XMS | Encounter Summary ---
Demographics + + + | Address | [address] | | | [place] [address] | + + + | Home Phone [...] Team Providers + +------+ + | Care Pants Closer Name | Role | Phone | [...] 2018 | | GASTROENTEROLOGY | [address], [place] | (egd,colon) | | | | [address] [place] | [address] [place], [place] | | | | | 210 [place], [place] | [address] | | | | | [address] | | | | | | [phone] | | | +--------+ + + + [...] | | | | | | [place] [address] | | | | | | [phone] | | | | | | | | +--------+ + + + + | 05/01/ | Procedure | Cardiology | | | | 2020 | visit | | | | +--------+ + + + + | 06/10/ | Office | Cardiology | Silvia, | | | 2019 | Visit | | PARISA Vernon [address] | | | | | | [place], | | | | | | [place] [address] | | | | | | [phone] | | | | | | | | +--------+ + + + + | 05/21/ | Implant | Cardiology | Daljit Singletary, | Remote Device | 2019 | Monitor | | [address] | Interrogation | | | | | [place], | (Primary Dx); | | | | | [place] [address] | Pacemaker; | | | | | [phone] | Sinoatrial node | | | | | | dysfunction (HCC) | | | | | | with symptomatic | | | | | | bradycardia | +--------+ + + + + documented as of this encounter Visit Diagnoses Not on filedocumented in this encounter"
--- OUTSIDE RECORDS SUMMARY | ~2020-04-13 | XMS | Encounter Summary ---
Demographics + + + | Address | [address] | | | [place] [address] | + + + | Home Phone [...] | | | | [place] | [address] | | | | | [address] | | | | | | [phone] | | | +--------+ + + + [...] | | | | | | [place] [address] | | | | | | [phone] | | | | | | | [...] | | | | | | [place] [address] | | | | | | [phone] | | | | | | | | +--------+ + + + + | 05/21/ | Implant | Cardiology | Daljit Singletary, | Remote Device | 2019 | Monitor | | MD [address] [place] | Interrogation | | | | | [place], | (Primary Dx); | | | | | [place] [address] | Pacemaker; | | | | | [phone] | Sinoatrial node | | | | | | dysfunction (HCC) | | | | | | with symptomatic | | | | | | bradycardia | +--------+ + + + + documented as of this encounter Visit Diagnoses Not on filedocumented in this encounter"
--- OUTSIDE RECORDS SUMMARY | ~2020-04-13 | XMS | Encounter Summary ---
Demographics + + + | Address | [address] | | | [place] [address] | + + + | Home Phone [...] Providers + +------+ + | Care Manager Game Name | Role | Phone | + [...] abdominal | [address] | [address], | | | | | pain | [address] | [address] | | | | | Chronic pain | [address] | [place], | | | | | syndrome | [place], [place] | [place] [address] | | | | | Procedures | [address] | Phone: | | | | | Office Visit | Phone: | [phone] | | | | | | [phone] | Fax: | | | | | | Fax: | [phone] | | | | | | [phone] | | +--------+--------+ + + + + Encounter Details +--------+---------+ + + + | Date | Type | Department | Care Team | Description | +--------+---------+ + + + | 12/02/ | Office | [facility] [place] | Emmanuel Daniel MD | Diarrhea, | | 2018 | Visit | GASTROENTEROLOGY | [address], [place] | unspecified type | | | | [address] [place] | [address] [place], [place] | (Primary Dx); Weight | | | | 210 [place], [place] | [address] | loss, | | | | [address] | | unintentional; | | | | [phone] | | Generalized | | | | [...] | | | | | | [place] [address] | | | | | | [phone] | | | | | | | | +--------+ + + + + | 05/01/ | Procedure | Cardiology | | | | 2019 | visit | | | | +--------+ + + + + | 05/01/ | Office | Cardiology | Silvia, | | | 2019 | Visit | | PARISA [place] [address] | | | | | | [place], | | | | | | [place] [address] | | | | | | [phone] | | | | | | | | +--------+ + + + + | 05/21/ | Implant | Cardiology | Daljit Singletary, | Remote Device | 2019 | Monitor | | [address] [facility] | Interrogation | | | | | [place], | (Primary Dx); | | | | | [place] [address] | Pacemaker; | | | | | [phone] | Sinoatrial node | | | | [...]
--- OUTSIDE RECORDS SUMMARY | ~2020-04-13 | XMS | Encounter Summary ---
Demographics + + + | Address | [address] | | | [place] [address] | + + + | Home Phone [...] Provider Unknown | | | | | [place], [place] | [phone] | | | | | [address] | | | | | | [phone] | | | +--------+ + + + [...] + + + +---------+ + + | Gil[place]-3 Fatty | CAPS, one capsule by | [...] | 05/01/ | Appointment | Radiology | Silvai, | | | 2019 | | | PARISA [place] [address] | | | | | | [place], | | | | | | [place] [address] | | | | | | [phone] | | | | | | | | +--------+ + + + + | 05/01/ | Procedure | Cardiology | | | | 2019 | visit | | | | +--------+ + + + + | 05/01/ | Office | Cardiology | Silvia, | | | 2019 | Visit | | [address] | | | | | | [place], | | | | | | [place] [address] | | | | | | [phone] | | | | | | | | +--------+ + + + + | 05/21/ | Implant | Cardiology | Daljit Singletary, | Remote Device | 2019 | Monitor | | [address] [place] | Interrogation | | | | | [place], | (Primary Dx); | | | | | [place] [address] | Pacemaker; | | | | | [phone] | Sinoatrial node | | | | [...]
--- OUTSIDE RECORDS SUMMARY | ~2020-04-13 | XMS | Encounter Summary ---
Demographics + + + | Address | [address] | | | [place] [address] | + + + | Home Phone [...] Providers + +------+ + | Care Dairy Products Maker Name | Role | Phone | + +------+ + PCP | Unavailable | + +------+ + Encounter Details +--------+ + + + + | Date | Type | Department | Care Team | Description | +--------+ + + + + | 08/26/ | Hospital | [facility] | | | | 2009 | Encounter | MED CTR LABORATORY | | | | | | [address] | | | | | | [place] | | | | | | [address] | | | | | | [phone] | | | +--------+ + + + [...] | | | | | | [place] [address] | | | | | | [phone] | | | | | | | | +--------+ + + + + | 05/01/ | Procedure | Cardiology | | | | 2019 | visit | | | | +--------+ + + + + | 05/01/ | Office | Cardiology | Silvia, | | | 2019 | Visit | | [address] | | | | | | [place], | | | | | | [place] [address] | | | | | | [phone] | | | | | | | | +--------+ + + + + | 05/21/ | Implant | Cardiology | Daljit Singletary, | Remote Device | 2019 | Monitor | | [address] [place] [place] | Interrogation | | | | | [place], | (Primary Dx); | | | | | [place] [address] | Pacemaker; | | | | | [phone] | Sinoatrial node | | | | | | dysfunction (HCC) | | | | | | with symptomatic | | | | | | bradycardia | +--------+ + + + + documented as of this encounter Visit Diagnoses Not on filedocumented in this encounter"
--- OUTSIDE RECORDS SUMMARY | ~2020-04-13 | XMS | Encounter Summary ---
Demographics + + + | Address | [address] | | | [place] [address] | + + + | Home Phone [...] + +------+ + | Care Supply Chain Director Name | Role | Phone | [...] 2016 | | CARDIOLOGY [address] | ROLL MACHINE OPERATOR [address] | | | | | [place], | [place], [place] | | | | | [place] [address] | [address] | | | | | [phone] | | | +--------+--------+ + + + [...] W | | | | | | [place], | | | | | | [place] [address] | | | | | | [phone] | | | | | | | | +--------+ + + + + | 05/01/ | Procedure | Cardiology | | | | 2019 | visit | | | | +--------+ + + + + | 05/01/ | Office | Cardiology | [place], | | | 2019 | Visit | | [address]ISA [address] W | | | | | | [place], | | | | | | [place] [address] | | | | | | [phone] | | | | | | | | +--------+ + + + + | 05/21/ | Implant | Cardiology | Daljit Singletary, | Remote Device | | 2019 | Monitor | | [facility] | Interrogation | | | | | [place], | (Primary Dx); | | | | | [place] [address] | Pacemaker; | | | | | [phone] | Sinoatrial node | | | | | | dysfunction (HCC) | | | | | | with symptomatic | | | | | | bradycardia | +--------+ + + + + documented as of this encounter Visit Diagnoses Not on filedocumented in this encounter"
--- OUTSIDE RECORDS SUMMARY | ~2020-04-13 | XMS | Encounter Summary ---
Demographics + + + | Address | [address] | | | [place] [address] | + + + | Home Phone [...] Providers + +------+ + | Care Supervisor Weaving Name | Role | Phone | + [...] | | | [address] | [place], [place] | Left hip pain | | | | [place], [place] | [address] | | | | | [address] | | | | | | [phone] | | | +--------+ + + + [...] + + + +---------+ + + | [place]-3 Fatty | CAPS, one capsule by | [...] | | | | | | [place] [address] | | | | | | [phone] | | | | | | | | +--------+ + + + + | 05/01/ | Procedure | Cardiology | | | | 2019 | visit | | | | +--------+ + + + + | 05/01/ | Office | Cardiology | [place], | | | 2019 | Visit | | PARISA [place] [address] | | | | | | [place], | | | | | | [place] [address] | | | | | | [phone] | | | | | | | | +--------+ + + + + | 05/21/ | Implant | Cardiology | Daljit Singletary, | Remote Device | | 2019 | Monitor | | [address] [place] | Interrogation | | | | | [place], | (Primary Dx); | | | | | [place] [address] | Pacemaker; | | | | | [phone] | Sinoatrial node | | | | [...] Conversion - 07/06/2019 12:12 AM PDT PINA [id number] years MaleXR | | LUMBAR SPINE LIMITED [...]
--- OUTSIDE RECORDS SUMMARY | ~2020-04-13 | XMS | Encounter Summary ---
Demographics + + + | Address | [address] | | | [place] [address] | + + + | Home Phone [...] Providers + +------+ + | Care Guide Cruise Name | Role | Phone | + [...] Referral Question | | 2019 | | [facility] | MD Brea [address] | | | | | PRIMARY CARE [address] | [address] | | | | | [address] | [place] [address] | | | | | [place], [place] | [phone] | | | | | [address] | | | | | | [phone] | | | +--------+ + + + [...] | | | | | | [place] [address] | | | | | | [phone] | | | | | | | | +--------+ + + + + | 05/01/ | Procedure | Cardiology | | | | 2019 | visit | | | | +--------+ + + + + | 05/01/ | Office | Cardiology | [place], | | | 2019 | Visit | | PARISA Vernon [address] | | | | | | [place], | | | | | | [place] [address] | | | | | | [phone] | | | | | | | | +--------+ + + + + | 05/21/ | Implant | Cardiology | Daljit Singletary, | Remote Device | | 2019 | Monitor | | [address] [place] | Interrogation | | | | | [place], | (Primary Dx); | | | | | [place] [address] | Pacemaker; | | | | | [phone] | Sinoatrial node | | | | | | dysfunction (HCC) | | | | | | with symptomatic | | | | | | bradycardia | +--------+ + + + + documented as of this encounter Visit Diagnoses Not on filedocumented in this encounter"
--- OUTSIDE RECORDS SUMMARY | ~2020-04-13 | XMS | Encounter Summary ---
Demographics + + + | Address | [address] | | | [place] [address] | + + + | Home Phone [...] Team Providers + +------+ + | Care Radiologic Electronic Specialist Name | Role | Phone | [...] 2019 | | CARDIOLOGY [address] | Administrative Asst | | | | | [place], | | | | | | [place] [address] | | | | | | [phone] | | | +--------+ + + + [...] W | | | | | | [place], | | | | | | [place] [address] | | | | | | [phone] | | | | | | | | +--------+ + + + + | 05/01/ | Procedure | Cardiology | | | | 2019 | visit | | | | +--------+ + + + + | 05/01/ | Office | Cardiology | [place], | | | 2019 | Visit | | PARISA Vernon [address] | | | | | | [place], | | | | | | [place] [address] | | | | | | [phone] | | | | | | | | +--------+ + + + + | 05/21/ | Implant | Cardiology | Daljit Singletary, | Remote Device | | 2019 | Monitor | | MD [address] [facility] | Interrogation | | | | | [place], | (Primary Dx); | | | | | [place] [address] | Pacemaker; | | | | | [phone] | Sinoatrial node | | | | [...] | | | | | | | [place], | | | | | | External [...]
--- OUTSIDE RECORDS SUMMARY | ~2020-04-13 | XMS | Encounter Summary ---
Demographics + + + | Address | [address] | | | [place] [address] | + + + | Home Phone [...] Providers + +------+ + | Care Men'S Locker Room Attendant Name | Role | Phone | + +------+ + PCP | Unavailable | + +------+ + Encounter Details +--------+ + + + + | Date | Type | Department | Care Team | Description | +--------+ + + + + | 01/20/ | [facility] | [facility] | Geri Angel, | | | 2009 | Encounter | MED CTR GENERIC OP | PERFORATING MACHINE OPERATOR [address] | | | | | CONV DEPT [address] | [place] | | | | | [place], | [id number] | | | | | [place] [address] | | | | | | [phone] | | | +--------+ + + + [...] | | | | | | [place] [address] | | | | | | [phone] | | | | | | | [...] | | | | | | [place] [address] | | | | | | [phone] | | | | | | | | +--------+ + + + + | 05/21/ | Implant | Cardiology | Daljit Singletary, | Remote Device | 2019 | Monitor | | [address] [place] | Interrogation | | | | | [place], | (Primary Dx); | | | | | [place] [address] | Pacemaker; | | | | | [phone] | Sinoatrial node | | | | | | dysfunction (HCC) | | | | | | with symptomatic | | | | | | bradycardia | +--------+ + + + + documented as of this encounter Visit Diagnoses Not on filedocumented in this encounter"
--- OUTSIDE RECORDS SUMMARY | ~2020-04-13 | XMS | Encounter Summary ---
Demographics + + + | Address | [address] | | | [place] [address] | + + + | Home Phone [...] Providers + +------+ + | Care Product Handler Name | Role | Phone | [...] + | 01/25/ | Telephone | [facility] | Daljit Singletary, | Appointment | | 2017 | | CARDIOLOGY [address] | MD [address] [place] | | | | | [place], | [place], | | | | | [place] [address] | [place] [address] | | | | | [phone] | [phone] | | | | | | | [...] | | | | | | [place] [address] | | | | | | [phone] | | | | | | | [...] | | | | | | [place] [address] | | | | | | [phone] | | | | | | | | +--------+ + + + + | 05/21/ | Implant | Cardiology | Daljit Singletary, | Remote Device | | 2019 | Monitor | | [address] [facility] | Interrogation | | | | | [place], | (Primary Dx); | | | | | [place] [address] | Pacemaker; | | | | | [phone] | Sinoatrial node | | | | | | dysfunction (HCC) | | | | | | with symptomatic | | | | | | bradycardia | +--------+ + + + + documented as of this encounter Visit Diagnoses Not on filedocumented in this encounter"
--- OUTSIDE RECORDS SUMMARY | ~2020-04-13 | XMS | Encounter Summary ---
Demographics + + + | Address | [address] | | | [place] [address] | + + + | Home Phone [...] Providers + +------+ + | Care Single Spindle Screw Machine Operator Name | Role | [...] + | 06/20/ | Telephone | [facility] | Daljit Singletary, | Chest Pain | | 2018 | | CARDIOLOGY [address] | MD [address] [place] [place] | | | | | [place], | [place], | | | | | [place] [address] | [place] [address] | | | | | [phone] | [phone] | | | | | | | [...] | | | | | | [place] [address] | | | | | | [phone] | | | | | | | | +--------+ + + + + | 05/01/ | Procedure | Cardiology | | | | 2019 | visit | | | | +--------+ + + + + | 05/01/ | Office | Cardiology | [place], | | | 2019 | Visit | | PARISA Vernon [address] | | | | | | [place], | | | | | | [place] [address] | | | | | | [phone] | | | | | | | | +--------+ + + + + | 05/21/ | Implant | Cardiology | Daljit Singletary, | Remote Device | | 2019 | Monitor | | [facility] | Interrogation | | | | | [place], | (Primary Dx); | | | | | [place] [address] | Pacemaker; | | | | | [phone] | Sinoatrial node | | | | | | dysfunction (HCC) | | | | | | with symptomatic | | | | | | bradycardia | +--------+ + + + + documented as of this encounter Visit Diagnoses Not on filedocumented in this encounter"
--- OUTSIDE RECORDS SUMMARY | ~2020-04-13 | XMS | Encounter Summary ---
Demographics + + + | Address | [address] | | | [place] [address] | + + + | Home Phone [...] Providers + +------+ + | Care Hospital Admissions Clerk Name | Role | Phone [...] 2015 | | CARDIOLOGY [address] | SERVER ADMINISTRATOR [address] [place] | | | | | [place], | [place], [place] | | | | | [place] [address] | [address] | | | | | [phone] | | | +--------+--------+ + + + [...] | | | | | | [place] [address] | | | | | | [phone] | | | | | | | [...] | | | | | | [place] [address] | | | | | | [phone] | | | | | | | | +--------+ + + + + | 05/21/ | Implant | Cardiology | Daljit Singletary, | Remote Device | | 2019 | Monitor | | [address] [facility] | Interrogation | | | | | [place], | (Primary Dx); | | | | | [place] [address] | Pacemaker; | | | | | [phone] | Sinoatrial node | | | | | | dysfunction (HCC) | | | | | | with symptomatic | | | | | | bradycardia | +--------+ + + + + documented as of this encounter Visit Diagnoses Not on filedocumented in this encounter"
--- OUTSIDE RECORDS SUMMARY | ~2020-04-13 | XMS | Encounter Summary ---
Demographics + + + | Address | [address] | | | [place] [address] | + + + | Home Phone [...] Providers + +------+ + | Care Chain Saw Mechanic Name | Role | Phone | + +------+ + PCP | Unavailable | + +------+ + Encounter Details +--------+ + + + + | Date | Type | Department | Care Team | Description | +--------+ + + + + | 06/17/ | Hospital | [facility] | | | | 2007 | Encounter | MED CTR EMERGENCY | | | | | | [place] [address] | | | | | | [place] | | | | | | [address] | | | | | | [phone] | | | +--------+ + + + [...] | | | | | | [place] [address] | | | | | | [phone] | | | | | | | | +--------+ + + + + | 05/01/ | Procedure | Cardiology | | | | 2019 | visit | | | | +--------+ + + + + | 05/01/ | Office | Cardiology | [place], | | | 2019 | Visit | | [address] | | | | | | [place], | | | | | | [place] [address] | | | | | | [phone] | | | | | | | | +--------+ + + + + | 05/21/ | Implant | Cardiology | Daljit Singletary, | Remote Device | 2019 | Monitor | | [address] [place] | Interrogation | | | | | [place], | (Primary Dx); | | | | | [place] [address] | Pacemaker; | | | | | [phone] | Sinoatrial node | | | | | | dysfunction (HCC) | | | | | | with symptomatic | | | | | | bradycardia | +--------+ + + + + documented as of this encounter Visit Diagnoses Not on filedocumented in this encounter"
--- OUTSIDE RECORDS SUMMARY | ~2020-04-13 | XMS | Encounter Summary ---
Demographics + + + | Address | [address] | | | [place] [address] | + + + | Home Phone [...] Team Providers + +------+ + | Care Informatica Mdm Architect Name | Role | Phone | [...] + + | 08/24/ | Office | [facility] | [place], | Ascending thoracic | | 2018 | Visit | CARDIOLOGY [address] | PARISA [place] [address] | aortic aneurysm | | | | [place], | [place], | ([facility]) (Primary Dx); | | | | [place] [address] | [place] [address] | Syncope, unspecified | | | | [phone] | [phone] | syncope type; | | | | [...] of 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 90 tabl et 1 [facility] [...] DOSE, CALL 911 100 tablet 3 [place]-3 Fatty Acids (SALMON OIL-1000 PO) CAPS, one [...] now present Confirmed by HIREN WINKLER, ANGELA ([id number]) on 07/28/2018 6:03:35 AM LAB RESULTS reviewed [...] to go back in 3 days to [place] for an attempt of ablation under general [...] He is in class II of the [place] [employer] f unctional class. There are [...] subsided. 2. Non-critical Coronary artery disease involving [place] coronary artery of [place] heart [facility] angina pectoris: A. Normal exercise sestamibi [...] cannot completely be ruled out . [facility] 12/25/13, shows non critical coronary [...] this chart may have been created with [employer] voice recognition software. Occasi onal wrong-word or [...] | | | | | | [place] [address] | | | | | | [phone] | | | | | | | | +--------+ + + + + | 05/01/ | Procedure | Cardiology | | | | 2019 | visit | | | | +--------+ + + + + | 05/01/ | Office | Cardiology | [place], | | | 2019 | Visit | | PARISA Vernon [address] | | | | | | [place], | | | | | | [place] [address] | | | | | | [phone] | | | | | | | | +--------+ + + + + | 05/21/ | Implant | Cardiology | Daljit Singletary, | Remote Device | | 2019 | Monitor | | [address] [place] | Interrogation | | | | | [place], | (Primary Dx); | | | | | [place] [address] | Pacemaker; | | | | | [phone] | Sinoatrial node | | | | [...]
--- OUTSIDE RECORDS SUMMARY | ~2020-04-13 | XMS | Encounter Summary ---
Demographics + + + | Address | [address] | | | [place] [address] | + + + | Home Phone [...] Providers + +------+ + | Care Refrigerator Mover Name | Role | Phone | + +------+ + PCP | Unavailable | + +------+ + Encounter Details +--------+ + + + + | Date | Type | Department | Care Team | Description | +--------+ + + + + | 10/29/ | Hospital | [facility] GENERIC OP | Pia Akhtar | | | 2003 | Encounter | CONVERSION DEP [address] | MD [address] | | | | | [address] | [address] | | | | | [place] | [place] [address] | | | | | [address] | [phone] | | | | | [phone] | | | +--------+ + + + [...] W | | | | | | [place], | | | | | | [place] [address] | | | | | | [phone] | | | | | | | | +--------+ + + + + | 05/01/ | Procedure | Cardiology | | | | 2019 | visit | | | | +--------+ + + + + | 05/01/ | Office | Cardiology | [place] | | | 2019 | Visit | | PARISA [place] [address] | | | | | | [place], | | | | | | [place] [address] | | | | | | [phone] | | | | | | | | +--------+ + + + + | 05/21/ | Implant | Cardiology | Daljit Singletary, | Remote Device | 2019 | Monitor | | MD [place] | Interrogation | | | | | [place], | (Primary Dx); | | | | | [place] [address] | Pacemaker; | | | | | [phone] | Sinoatrial node | | | | | | dysfunction (HCC) | | | | | | with symptomatic | | | | | | bradycardia | +--------+ + + + + documented as of this encounter Visit Diagnoses Not on filedocumented in this encounter"
--- OUTSIDE RECORDS SUMMARY | ~2020-04-13 | XMS | Encounter Summary ---
Demographics + + + | Address | [address] | | | [place] [address] | + + + | Home Phone [...] Providers + +------+ + | Care Sack Sewer Name | Role | Phone | + +------+ + PCP | Unavailable | + +------+ + Encounter Details +--------+ + + + + | Date | Type | Department | Care Team | Description | +--------+ + + + + | 07/20/ | [facility] | [facility] | Hunter Antunez, | | | 2009 - | Encounter | MED CTR MED ONC | [address] | | | | | [address] [place] [place] | [place] | | | 07/24/ | | [place] [address] | [address] | | | 2009 | | [phone] | | | +--------+ + + + [...] W | | | | | | [place], | | | | | | [place] [address] | | | | | | [phone] | | | | | | | | +--------+ + + + + | 05/01/ | Procedure | Cardiology | | | | 2019 | visit | | | | +--------+ + + + + | 05/01/ | Office | Cardiology | [place] | | | 2019 | Visit | | PARISA Vernon [address] | | | | | | [place], | | | | | | [place] [address] | | | | | | [phone] | | | | | | | | +--------+ + + + + | 05/21/ | Implant | Cardiology | Daljit Singletary, | Remote Device | 2019 | Monitor | | MD [place] | Interrogation | | | | | [place], | (Primary Dx); | | | | | [place] [address] | Pacemaker; | | | | | [phone] | Sinoatrial node | | | | | | dysfunction (HCC) | | | | | | with symptomatic | | | | | | bradycardia | +--------+ + + + + documented as of this encounter Visit Diagnoses Not on filedocumented in this encounter"
--- OUTSIDE RECORDS SUMMARY | ~2020-04-13 | XMS | Encounter Summary ---
Demographics + + + | Address | [address] | | | [place] [address] | + + + | Home Phone [...] Team Providers + +------+ + | Care Cart Driver Name | Role | Phone | + +------+ + | Kirk French MD | PCP | | + +------+ + Encounter Details +--------+ + + + + | Date | Type | Department | Care Team | Description | +--------+ + + + + | 08/29/ | Hospital | [facility] | [place] | DVT (deep venous | | 2015 | Encounter | MED CTR ULTRASOUND | [place] [address] | thrombosis), | | | | [address] [place] | [place], | bilateral (HCC) | | | | [place], [place] | [place] [address] | | | | | [address] | [phone] | | | | | [phone] | | | +--------+ + + + [...] | | | | | | | #[id number], exp 07/2016 | | | | | [...] W | | | | | | [place], | | | | | | [place] [address] | | | | | | [phone] | | | | | | | | +--------+ + + + + | 05/01/ | Procedure | Cardiology | | | | 2019 | visit | | | | +--------+ + + + + | 05/01/ | Office | Cardiology | [place], | | | 2019 | Visit | | PARISA [address] | | | | | | [place], | | | | | | [place] [address] | | | | | | [phone] | | | | | | | | +--------+ + + + + | 05/21/ | Implant | Cardiology | Daljit Singletary, | Remote Device | 2019 | Monitor | | MD [address] [place] | Interrogation | | | | | [place], | (Primary Dx); | | | | | [place] [address] | Pacemaker; | | | | | [phone] | Sinoatrial node | | | | [...] HISTORY: DVT. COMPARISON: None. TECHNIQUE: Compression | [facility] | | sonography was performed from the groin through the popliteal fossa | [facility] | | in both lower extremities.. Grayscale [...] conveyed to the ordering provider, by the legal assistant, | | | immediately following the [...] to the ordering provider, by the | |legal assistant, immediately following the exam. | | | | | |Dictated and Signed by: Emmanuel Gibbons MD | | Electronically signed: 08/29/2015 3:25 PM | + + + + + + + | Performing | Address | City/State/Zipcode | Phone Number | | Organization | | | | + + + + + | [facility] | [address] | [place] | [phone] | | [facility] | | [address] | | | - IMAGING | | | | + + + + + documented in this encounter Visit Diagnoses + + | Diagnosis | + + | DVT (deep venous thrombosis), bilateral | + + documented in this encounter"
--- OUTSIDE RECORDS SUMMARY | ~2020-04-13 | XMS | Encounter Summary ---
Demographics + + + | Address | [address] | | | [place] [address] | + + + | Home Phone [...] Team Providers + +------+ + | Care Prospect Manager Name | Role | Phone | [...] | | | pain | [address] | [address] | | | | | Procedures | [place] | [place], | | | | | [place] Nuclear | [place] | [place] | | | | | Stress Test | [address] | [address] | | | | | (Vasodilator | Phone: | Phone: | | | | | ) CHG | [phone] | [phone] | | | | | MYOCARDIAL | Fax: | Fax: | | | | | SPECT | [phone] | [phone] | | | | | MULTIPLE | | | | | | | STUDIES | | | +--------+--------+ + + + + Encounter Details +--------+ + + + + | Date | Type | Department | Care Team | Description | +--------+ + + + + | 12/06/ | Hospital | [facility] | Geri [place], | Other chest pain | | 2013 | Encounter | MED CTR XRAY [address] | CASE MANAGEMENT COORDINATOR [address] | | | | | [place] | [place] | | | | | [place] [address] | [address] | | | | | [phone] | | | +--------+ + + + [...] + + +---------+ + + | [place]-3 Fatty | CAPS, one capsule by | [...] | | | | | | [place] [address] | | | | | | [phone] | | | | | | | | +--------+ + + + + | 05/01/ | Procedure | Cardiology | | | | 2019 | visit | | | | +--------+ + + + + | 05/01/ | Office | Cardiology | [place] | | | 2019 | Visit | | PARISA [place] [address] | | | | | | [place], | | | | | | [place] [address] | | | | | | [phone] | | | | | | | | +--------+ + + + + | 05/21/ | Implant | Cardiology | Daljit Singletary, | Remote Device | 2019 | Monitor | | [address] | Interrogation | | | | | [place], | (Primary Dx); | | | | | [place] [address] | Pacemaker; | | | | | [phone] | Sinoatrial node | | | | [...] + | [facility] | [place] | | Department [address] [place] | [address] | | [ rep [address]] [ rep [facility] | | st zip] Signed | - IMAGING | | | | | Patient Name: MOE GAY | | | Physician: JACKLYN : 1960 Age: 53 Sex: M Unit | | | #: [id number] Exam Date: 12/06/13 Location: | | | [facility] [place] #: [id number] Page: | | | %(RAD)RES..mtdd.print.filter("pg") of %(RAD) | | | RES..mtdd.print.filter("tpg") | | | | | | Accession Number: [id number] | | | PERSANTINE SESTAMIBI STRESS TEST, [...] Transcribed Date/Time: 12/07/2013 08:18 | | | Tandem Mill Operator: <<Signature on File>> | | | | | | Daljit Singletary MD [facility] FASE12/07/13 1321 <Electronically signed | | | by Daljit Singletary MD, [facility], FACDamien, ADELINE, YEN> Daljit | | | MD Gemini [facility] ADELINE 12/07/13 0701 Tandem Mill Operator: Cheyennex | | | [id number]/16/14 0818 [place] | | + + + + + + + + | Performing | Address | City/State/Zipcode | Phone Number | | Organization | | | | + + + + + | [facility] | [address] | [place] | [phone] | | [facility] | | [address] | | | - IMAGING | | | | + + + + + documented in this encounter Visit Diagnoses + + | Diagnosis | + + | Other chest pain | + + documented in this encounter
--- OUTSIDE RECORDS SUMMARY | ~2020-04-13 | XMS | Encounter Summary ---
Demographics + + + | Address | [address] | | | [place] [address] | + + + | Home Phone [...] [place] | | | | | [place], [place] | [address] | | | | | [address] | [place] [address] | | | | | [phone] | [phone] | | | | | | | [...] | | | | | | [place], | | | | | | [place] [address] | | | | | | [phone] | | | | | | | | +--------+ + + + + | 05/01/ | Procedure | Cardiology | | | | 2019 | visit | | | | +--------+ + + + + | 05/01/ | Office | Cardiology | Silvia, | | | 2019 | Visit | | [address] | | | | | | [place], | | | | | | [place] [address] | | | | | | [phone] | | | | | | | | +--------+ + + + + | 05/21/ | Implant | Cardiology | Daljit Singletary, | Remote Device | 2019 | Monitor | | [facility] [place] | Interrogation | | | | | [place], | (Primary Dx); | | | | | [place] [address] | Pacemaker; | | | | | [phone] | Sinoatrial node | | | | [...]
--- OUTSIDE RECORDS SUMMARY | ~2020-04-13 | XMS | Encounter Summary ---
Demographics + + + | Address | [address] | | | [place] [address] | + + + | Home Phone [...] Team Providers + +------+ + | Care Referral Clerk Name | Role | Phone | [...] [address] | | | | | | [place], [place] | (Fax) | | | | | [address] | | | | | | [phone] | | | +--------+ + + + [...] | | | | | | [place] [address] | | | | | | [phone] | | | | | | | | +--------+ + + + + | 05/01/ | Procedure | Cardiology | | | | 2019 | visit | | | | +--------+ + + + + | 05/01/ | Office | Cardiology | Silvia, | | | 2019 | Visit | | PARISA Vernon [address] | | | | | | [place], | | | | | | [place] [address] | | | | | | [phone] | | | | | | | | +--------+ + + + + | 05/21/ | Implant | Cardiology | Daljit Singletary, | Remote Device | | 2019 | Monitor | | [address] [place] | Interrogation | | | | | [place], | (Primary Dx); | | | | | [place] [address] | Pacemaker; | | | | | [phone] | Sinoatrial node | | | | | | dysfunction (HCC) | | | | | | with symptomatic | | | | | | bradycardia | +--------+ + + + + documented as of this encounter Visit Diagnoses Not on filedocumented in this encounter"
--- OUTSIDE RECORDS SUMMARY | ~2020-04-13 | XMS | Encounter Summary ---
Demographics + + + | Address | [address] | | | [place] [address] | + + + | Home Phone [...] Providers + +------+ + | Care Christian Ministries Professor Name | Role | Phone | [...] [address] | | | | | [place], | [place], | | | | | [place] [address] | [place] [address] | | | | | [phone] | [phone] | | | | | | | [...] | | | | | [place], | | | | | | [place] [address] | | | | | | [phone] | | | | | | | [...] | | | | | | [place] [address] | | | | | | [phone] | | | | | | | | +--------+ + + + + | 05/21/ | Implant | Cardiology | Daljit Singletary, | Remote Device | | 2019 | Monitor | | [address] [facility] | Interrogation | | | | | [place], | (Primary Dx); | | | | | [place] [address] | Pacemaker; | | | | | [phone] | Sinoatrial node | | | | | | dysfunction (HCC) | | | | | | with symptomatic | | | | | | bradycardia | +--------+ + + + + documented as of this encounter Visit Diagnoses Not on filedocumented in this encounter"
--- OUTSIDE RECORDS SUMMARY | ~2020-04-13 | XMS | Encounter Summary ---
Demographics + + + | Address | [address] | | | [place] [address] | + + + | Home Phone [...] Team Providers + +------+ + | Care Blasting Contract Man Name | Role | Phone | [...] + | 06/20/ | Telephone | [facility] | Daljit Singletary, | Chest Pain | | 2018 | | CARDIOLOGY [address] | MD [address] [place] | | | | | [place], | [place], | | | | | [place] [address] | [place] [address] | | | | | [phone] | [phone] | | | | | | | [...] | | | | | | [place] [address] | | | | | | [phone] | | | | | | | | +--------+ + + + + | 05/01/ | Procedure | Cardiology | | | | 2019 | visit | | | | +--------+ + + + + | 05/01/ | Office | Cardiology | Silvia, | | | 2019 | Visit | | PARISA Vernon [address] | | | | | | [place], | | | | | | [place] [address] | | | | | | [phone] | | | | | | | | +--------+ + + + + | 05/21/ | Implant | Cardiology | Daljit Singletary, | Remote Device | | 2019 | Monitor | | [address] [facility] | Interrogation | | | | | [place], | (Primary Dx); | | | | | [place] [address] | Pacemaker; | | | | | [phone] | Sinoatrial node | | | | | | dysfunction (HCC) | | | | | | with symptomatic | | | | | | bradycardia | +--------+ + + + + documented as of this encounter Visit Diagnoses Not on filedocumented in this encounter"
--- OUTSIDE RECORDS SUMMARY | ~2020-04-13 | XMS | Encounter Summary ---
Demographics + + + | Address | [address] | | | [place] [address] | + + + | Home Phone [...] Team Providers + +------+ + | Care Viscose Department Worker Name | Role | Phone | [...] Provider Unknown | | | | | [place], [place] | [phone] | | | | | [address] | | | | | | [phone] | | | +--------+ + + + [...] + + + +---------+ + + | Lignum-3 Fatty | CAPS, one capsule by | [...] | | | | | | [place] [address] | | | | | | [phone] | | | | | | | [...] | | | | | | [place] [address] | | | | | | [phone] | | | | | | | | +--------+ + + + + | 05/21/ | Implant | Cardiology | Daljit Singletary, | Remote Device | | 2019 | Monitor | | [address] | Interrogation | | | | | [place], | (Primary Dx); | | | | | [place] [address] | Pacemaker; | | | | | [phone] | Sinoatrial node | | | | [...]
--- OUTSIDE RECORDS SUMMARY | ~2020-04-13 | XMS | Encounter Summary ---
Demographics + + + | Address | [address] | | | [place] [address] | + + + | Home Phone [...] Providers + +------+ + | Care Word Processor Name | Role | Phone | [...] | Telephone | [facility] [place] | [place], | Other (not feeling | | 2013 | | [place] [address] | PARISA [place] [address] | [place]) | | | | [place], | [place], | | | | | [place] [address] | [place] [address] | | | | | [phone] | [phone] | | | | | | | [...] | | | | | | [place] [address] | | | | | | [phone] | | | | | | | [...] | | | | | | [place] [address] | | | | | | [phone] | | | | | | | | +--------+ + + + + | 05/21/ | Implant | Cardiology | Daljit Singletary, | Remote Device | | 2019 | Monitor | | [address] [facility] | Interrogation | | | | | [address] [place], | (Primary Dx); | | | | | [place] [address] | Pacemaker; | | | | | [phone] | Sinoatrial node | | | | | | dysfunction (HCC) | | | | | | with symptomatic | | | | | | bradycardia | +--------+ + + + + documented as of this encounter Visit Diagnoses Not on filedocumented in this encounter"
--- OUTSIDE RECORDS SUMMARY | ~2020-04-13 | XMS | Encounter Summary ---
Demographics + + + | Address | [address] | | | [place] [address] | + + + | Home Phone [...] Providers + +------+ + | Care Furnace Mechanic Name | Role | Phone | [...] | 12/23/ | Telephone | [facility] | Daljit Singletary, | Other (question | | 2015 | | CARDIOLOGY [address] | [address] | about diet | | | | [place], | [place], | medication) | | | | [place] [address] | [place] [address] | | | | | [phone] | [phone] | | | | | | | [...] [place] | | | | | | [place] [address] | | | | | | [phone] | | | | | | | | +--------+ + + + + | 05/01/ | Procedure | Cardiology | | | | 2019 | visit | | | | +--------+ + + + + | 05/01/ | Office | Cardiology | Silvia | | | 2019 | Visit | | Janeen, EDUCATION DEPARTMENT CHAIR [address] | | | | | | [place], | | | | | | [place] [address] | | | | | | [phone] | | | | | | | | +--------+ + + + + | 05/21/ | Implant | Cardiology | Daljit Singletary, | Remote Device | | 2020 | Monitor | | MD [address] | Interrogation | | | | | [place], | (Primary Dx); | | | | | [place] [address] | Pacemaker; | | | | | [phone] | Sinoatrial node | | | | | | dysfunction ([facility]) | | | | | | with symptomatic | | | | | | bradycardia | +--------+ + + + + documented as of this encounter Visit Diagnoses Not on filedocumented in this encounter"
--- OUTSIDE RECORDS SUMMARY | ~2020-04-13 | XMS | Encounter Summary ---
Demographics + + + | Address | [address] | | | [place] [address] | + + + | Home Phone [...] Providers + +------+ + | Care Industrial Gas Servicer Supervisor Name | Role | Phone | [...] | Visit | CARDIOLOGY [address] | AB INITIO ETL DEVELOPER [address] [place] | Dx) | | | | [place], | [place], [place] | | | | | [place] [address] | [address] | | | | | [phone] | | | +--------+---------+ + + + [...] Sanchez Date: December 21, 2012 : 1960 Rn Field: PARISA Velazquez Device Supervisor Fishing: Medtronic Sense (mV) Impedance (?) Capture (V) Capture (ms) A Lead 4-5.6 423 1.5 0.09 RV Lead >31.36 539 2.0 0.09 LV Lead Battery Impedance (?): 301 Battery Voltage (V): 2.8 TN Interval (ms): 140 AR Interval (ms): 210 VA Conduction: Mode Switch Events: N/A % of time: -PRODUCTION MACHINE TENDER: 0.6 AP-PRODUCTION MACHINE TENDER: 1.3 -VS: 23.9 AP-VS: 74.2 PRODUCTION MACHINE TENDER: Magnetic Rate: 85 LINDA: 65 LEAH: Current [...] | | | | | | [place] [address] | | | | | | [phone] | | | | | | | | +--------+ + + + + | 05/01/ | Procedure | Cardiology | | | | 2019 | visit | | | | +--------+ + + + + | 05/01/ | Office | Cardiology | Silvia, | | | 2019 | Visit | | PARISA Vernon [address] | | | | | | [place], | | | | | | [place] [address] | | | | | | [phone] | | | | | | | | +--------+ + + + + | 05/21/ | Implant | Cardiology | Daljit Singletary, | Remote Device | 2019 | Monitor | | [address] [place] | Interrogation | | | | | [place], | (Primary Dx); | | | | | [place] [address] | Pacemaker; | | | | | [phone] | Sinoatrial node | | | | [...]
--- OUTSIDE RECORDS SUMMARY | ~2020-04-13 | XMS | Encounter Summary ---
Demographics + + + | Address | [address] | | | [place] [address] | + + + | Home Phone [...] Providers + +------+ + | Care Block Sawyer Name | Role | Phone | [...] | Palpitations | [address] | | | | | Procedures | [address] | [address] [place] | | | | | ECHO | [place], | [place], [place] | | | | | Complete | [place] [address] | [address] | | | | | | Phone: | Phone: | | | | | | [phone] | [phone] | | | | | | Fax: | Fax: | | | | | | [phone] | [phone] | +--------+--------+ + + + + Reason [...] 12/21/ | Office | [facility] | Daljit Singletary, | Palpitations | | 2012 | Visit | CARDIOLOGY [address] | [address] | (Primary Dx); PVC | | | | [address] [place], | [place], | (premature | | | | [place] [address] | [place] [address] | ventricular | | | | [phone] | [phone] | contraction) | | | | | [...] present himself to the emergency department at [facility] in [place], [place]. Today, patient is apprehensive of the [...] tablet Take 1,000 mg by mouth Daily. Gildford-3 Fatty Acids (SALMON OIL-1000 PO) CAPS, one [...] tablet Take 1,000 mg by mouth Daily. Gildford-3 Fatty Acids (SALMON OIL-1000 PO) CAPS, one [...] .59 kg/m2 PACEMAKER / ICD PARAMETERS Name: oMe Sanchez Date: December 21, 2012 : 1960 Polisher Aluminum: PARISA Velazquez Device Frame Stripper: HotLinktronic Sense (mV) Impedance (?) Capture (V) Capture (ms) A Lead 4-5.6 423 1.5 0.09 RV Lead >31.36 539 2.0 0.09 LV Lead Battery Impedance (?): 301 Battery Voltage (V): 2.8 OR Interval (ms): 140 AR Interval (ms): 210 VA Conduction: Mode Switch Events: N/A % of time: -BRASS FINISHER: 0.6 AP-BRASS FINISHER: 1.3 -VS: 23.9 AP-VS: 74.2 BRASS FINISHER: Magnetic Rate: 85 LINDA: 65 LEAH: Current [...] himself to the emerge ncy department at [facility] in [place], [place]. EKG showed normal sinus rhythm with [...] I will d iscuss this option with display specialist in [place]. 7. Followup in 2-4 weeks. Portions of this report were transcribed using voice recognition software. Every effort wa s made to ensure accuracy; however, inadvertent computerized laboratory technologist errors may be pre sent. documented [...] | | | | | | [place] [address] | | | | | | [phone] | | | | | | | | +--------+ + + + + | 05/01/ | Procedure | Cardiology | | | | 2019 | visit | | | | +--------+ + + + + | 05/01/ | Office | Cardiology | Silvia, | | | 2019 | Visit | | PARISA Vernon [address] | | | | | | [place], | | | | | | [place] [address] | | | | | | [phone] | | | | | | | | +--------+ + + + + | 05/21/ | Implant | Cardiology | Daljit Singletary, | Remote Device | 2019 | Monitor | | [address] [place] | Interrogation | | | | | [place], | (Primary Dx); | | | | | [place] [address] | Pacemaker; | | | | | [phone] | Sinoatrial node | | | | [...] + | [facility] | [place] | | Department [address] [place] [address] | [facility] | | [ rep [address]] [ rep [facility] | | st [facility]] Signed | - IMAGING | | | | | Patient Name: VICTOR HUGOMONAMOE W | | | Physician: MIGUELINA : 1960 Age: 52 Sex: M Unit | | | #: [id number] Exam Date: 12/30/12 Location: | | | [facility] Report #: [id number] Page: | | | %(RAD)RES..mtdd.print.filter("pg") of %(RAD) | | | RES..mtdd.print.filter("tpg") | | | | | | Accession Number: [id number] | | | E C H O C A R D I O G R A P H Y R E P O R T | | | HEIGHT: 76" WEIGHT: 270# | | | NURSE SPECIALIST: JAMEEL REFERRING DR: TIMMY DRAKE DR: | [...] | | | Transcribed Date/Time: 12/30/2012 16:34 Maintenance Plumber: | | | <<Signature on File>> | | | Daljit | | | MD Gemini [facility] FASE01/02/13 0955 <Electronically signed by | | | Daljit Singletary MD, FACC, FACP, ADELINE, YEN> Daljit | | | MD CLEOPATRA Singletary 12/30/12 1608 Maintenance Plumber: Jessica | | | [email or web address]/08/13 1634 Daljit Singletary MD FACC | | | FASE | | + + + + + + + + | Performing | Address | City/State/Zipcode | Phone Number | | Organization | | | | + + + + + | [facility] | [address] | [place] | [phone] | | [facility] | | [address] | | | - IMAGING | | | | + + + + + documented in this encounter Visit Diagnoses + + | Diagnosis | + + | Palpitations - Primary | + + | PVC (premature ventricular contraction) Other premature beats | + + documented in this encounter
--- OUTSIDE RECORDS SUMMARY | ~2020-04-13 | XMS | Encounter Summary ---
Demographics + + + | Address | [address] | | | [place] [address] | + + + | Home Phone [...] Providers + +------+ + | Care Brand Ambassadors Promotional Sales Name | Role | Phone | + +------+ + PCP | Unavailable | + +------+ + Encounter Details +--------+ + + + + | Date | Type | Department | Care Team | Description | +--------+ + + + + | 06/12/ | [facility] | [facility] | Hunter Antunez, | | | 2007 - | Encounter | MED CTR ICU [address] | MD [address] | | | | | [place], | [place] | | | 06/15/ | | [place] [address] | [address] | | | 2007 | | [phone] | | | +--------+ + + + [...] | | | | | | [place], | | | | | | [place] [address] | | | | | | [phone] | | | | | | | | +--------+ + + + + | 05/01/ | Procedure | Cardiology | | | | 2019 | visit | | | | +--------+ + + + + | 05/01/ | Office | Cardiology | Silvia | | | 2019 | Visit | | PARISA Vernon W | | | | | | [place], | | | | | | [place] [address] | | | | | | [phone] | | | | | | | | +--------+ + + + + | 05/21/ | Implant | Cardiology | Daljit Singletary, | Remote Device | 2019 | Monitor | | MD [address] [place] | Interrogation | | | | | [place], | (Primary Dx); | | | | | [place] [address] | Pacemaker; | | | | | [phone] | Sinoatrial node | | | | | | dysfunction (HCC) | | | | | | with symptomatic | | | | | | bradycardia | +--------+ + + + + documented as of this encounter Visit Diagnoses Not on filedocumented in this encounter"
--- OUTSIDE RECORDS SUMMARY | ~2020-04-13 | XMS | Encounter Summary ---
Demographics + + + | Address | [address] | | | [place] [address] | + + + | Home Phone [...] Team Providers + +------+ + | Care Healthcare Liaison Name | Role | Phone | [...] 2019 | | GASTROENTEROLOGY | [address] [place] [place] | (stomach cramps and | | | | [address] [place] | [address] [place], [place] | liquid stool) | | | | [address] [place], [place] | [address] | | | | | [address] | | | | | | [phone] | | | +--------+ + + + [...] | | | | | | [place] [address] | | | | | | [phone] | | | | | | | | +--------+ + + + + | 05/01/ | Procedure | Cardiology | | | | 2019 | visit | | | | +--------+ + + + + | 05/01/ | Office | Cardiology | [place]via, | | | 2019 | Visit | | PARISA Vernon [address] | | | | | | [place], | | | | | | [place] [address] | | | | | | [phone] | | | | | | | | +--------+ + + + + | 05/21/ | Implant | Cardiology | Daljit Singletary, | Remote Device | | 2019 | Monitor | | [address] [place] | Interrogation | | | | | [place], | (Primary Dx); | | | | | [place] [address] | Pacemaker; | | | | | [phone] | Sinoatrial node | | | | [...]
--- OUTSIDE RECORDS SUMMARY | ~2020-04-13 | XMS | Encounter Summary ---
Demographics + + + | Address | [address] | | | [place] [address] | + + + | Home Phone [...] Providers + +------+ + | Care Power Plant Operations Manager Name | Role | Phone [...] | RN | | | | | [place], | | | | | | [place] [address] | | | | | | [phone] | | | +--------+ + + + [...] W | | | | | | [place], | | | | | | [place] [address] | | | | | | [phone] | | | | | | | | +--------+ + + + + | 05/01/ | Procedure | Cardiology | | | | 2019 | visit | | | | +--------+ + + + + | 05/01/ | Office | Cardiology | [place]via | | | 2019 | Visit | | PARISA Vernon [address] | | | | | | [place], | | | | | | [place] [address] | | | | | | [phone] | | | | | | | | +--------+ + + + + | 05/21/ | Implant | Cardiology | Daljit Singletary, | Remote Device | | 2019 | Monitor | | MD [address] [place] | Interrogation | | | | | [place], | (Primary Dx); | | | | | [place] [address] | Pacemaker; | | | | | [phone] | Sinoatrial node | | | | | | dysfunction (HCC) | | | | | | with symptomatic | | | | | | bradycardia | +--------+ + + + + documented as of this encounter Visit Diagnoses Not on filedocumented in this encounter"
--- OUTSIDE RECORDS SUMMARY | ~2020-04-13 | XMS | Encounter Summary ---
Demographics + + + | Address | [address] [place] [address] [address] | | | [place] [address] | + + + | Home Phone [...] [place] | | | | | [address] | | + + + + + Care Team Providers + +------+ + | Care Forms Examiner Name | Role | Phone | [...] Chest pain | Farooq Almaguer, | Ch[address] | | | | | Bradycardia | DO [address] | [place] | | | | | Procedures | Yao Booth | Mailcode: | | | | | | [place]ak [place] | [facility] | | | | | TRANSTHORACI | [place], [place] | for Health | | | | | C | [address] | and Healing, | | | | | ECHOCARDIOGR | Phone: | Building [address] | | | | | AM, ADULT | [phone] | [place], [place] | | | | | | Fax: | [address] | | | | | | [phone] | Phone: | | | | | | | [phone] | +--------+--------+ + + + + Encounter Details +--------+ + + + + | Date | Type | Department | Care Team | Description | +--------+ + + + + | 02/03/ | Hospital | Cardiac | | | | 2010 | Encounter | Non-Invasive Testing | | | | | | at [facility] [address] | | | | | [address] Mailcode: [facility] | | | | | | [facility] | | | | | | and Healing, | | | | | | Building [address] | | | | | | [place], [place] | | | | | | [address] | | | | | | [phone] | | | +--------+ + + + [...]
--- OUTSIDE RECORDS SUMMARY | ~2020-04-13 | XMS | Encounter Summary ---
Demographics + + + | Address | [address] | | | [place] [address] | + + + | Home Phone [...] Team Providers + +------+ + | Care Interpretive Program Coordinator Name | Role | Phone | + +------+ + PCP | Unavailable | + +------+ + Encounter Details +--------+ + + + + | Date | Type | Department | Care Team | Description | +--------+ + + + + | 02/07/ | [facility] | [facility] | Unknown, | | | 1995 | Encounter | MED CTR XRAY [address] | MD Stefany . | | | | | [place] | | | | | | [place] [address] | (Fax) | | | | | [phone] | | | +--------+ + + + [...] | | | | | | [place] [address] | | | | | | [phone] | | | | | | | | +--------+ + + + + | 05/01/ | Procedure | Cardiology | | | | 2019 | visit | | | | +--------+ + + + + | 05/01/ | Office | Cardiology | Silvia, | | | 2019 | Visit | | PARISA Vernon [address] | | | | | | [place], | | | | | | [place] [address] | | | | | | [phone] | | | | | | | | +--------+ + + + + | 05/21/ | Implant | Cardiology | Daljit Singletary, | Remote Device | | 2019 | Monitor | | [address] [place] | Interrogation | | | | | [place], | (Primary Dx); | | | | | [place] [address] | Pacemaker; | | | | | [phone] | Sinoatrial node | | | | | | dysfunction (HCC) | | | | | | with symptomatic | | | | | | bradycardia | +--------+ + + + + documented as of this encounter Visit Diagnoses Not on filedocumented in this encounter"
--- OUTSIDE RECORDS SUMMARY | ~2020-04-13 | XMS | Encounter Summary ---
Demographics + + + | Address | [address] | | | [place] [address] | + + + | Home Phone [...] Team Providers + +------+ + | Care Machinery Cleaner Name | Role | Phone | [...] | Refill | [facility] [place] | [place], | Medication Refill | | 2014 | | CARDIOLOGY [address] | PARISA [place]non [address] | | | | | [place], | [place], | | | | | [place] [address] | [place] [address] | | | | | [phone] | [phone] | | | | | | | [...] | | | | | | [place] [address] | | | | | | [phone] | | | | | | | [...] | | | | | | [place] [address] | | | | | | [phone] | | | | | | | | +--------+ + + + + | 05/21/ | Implant | Cardiology | Daljit Singletary, | Remote Device | | 2019 | Monitor | | [facility] | Interrogation | | | | | [place] [place], | (Primary Dx); | | | | | [place] [address] | Pacemaker; | | | | | [phone] | Sinoatrial node | | | | | | dysfunction (HCC) | | | | | | with symptomatic | | | | | | bradycardia | +--------+ + + + + documented as of this encounter Visit Diagnoses Not on filedocumented in this encounter"
--- OUTSIDE RECORDS SUMMARY | ~2020-04-13 | XMS | Encounter Summary ---
Demographics + + + | Address | [address] | | | [place] [address] | + + + | Home Phone [...] Providers + +------+ + | Care Hand Cutter Apprentice Name | Role | Phone [...] Show | | 2012 | | MEDICINE [place] | DO [address] | | | | | [address] | [place] | | | | | [place] | [address] | | | | | [address] | | | | | | [phone] | | | +--------+ + + + [...] | | | | | | [place] [address] | | | | | | [phone] | | | | | | | [...] | | | | | | [place] [address] | | | | | | [phone] | | | | | | | | +--------+ + + + + | 05/21/ | Implant | Cardiology | Daljit Singletary, | Remote Device | 2019 | Monitor | | MD [address] | Interrogation | | | | | [place], | (Primary Dx); | | | | | [place] [address] | Pacemaker; | | | | | [phone] | Sinoatrial node | | | | | | dysfunction (HCC) | | | | | | with symptomatic | | | | | | bradycardia | +--------+ + + + + documented as of this encounter Visit Diagnoses Not on filedocumented in this encounter"
--- OUTSIDE RECORDS SUMMARY | ~2020-04-13 | XMS | Encounter Summary ---
Demographics + + + | Address | [address] | | | [place] [address] | + + + | Home Phone [...] Team Providers + +------+ + | Care Bolter Helper Name | Role | Phone | [...] 2019 | | GASTROENTEROLOGY | [address] [place] | | | | | [address] [place] | [address] [place], [place] | | | | | [address] [place], [place] | [address] | | | | | [address] | | | | | | [phone] | | | +--------+ + + + [...] | | | | | | [place] [address] | | | | | | [phone] | | | | | | | | +--------+ + + + + | 05/01/ | Procedure | Cardiology | | | | 2019 | visit | | | | +--------+ + + + + | 05/01/ | Office | Cardiology | Silvia, | | | 2019 | Visit | | [address] | | | | | | [address] [place], | | | | | | [place] [address] | | | | | | [phone] | | | | | | | | +--------+ + + + + | 05/21/ | Implant | Cardiology | Daljit Singletary, | Remote Device | | 2019 | Monitor | | [address] [facility] | Interrogation | | | | | [facility] [place], | (Primary Dx); | | | | | [place] [id number] | Pacemaker; | | | | | [phone] | Sinoatrial node | | | | | | dysfunction (HCC) | | | | | | with symptomatic | | | | | | bradycardia | +--------+ + + + + documented as of this encounter Visit Diagnoses Not on filedocumented in this encounter"
--- OUTSIDE RECORDS SUMMARY | ~2020-04-13 | XMS | Encounter Summary ---
Demographics + + + | Address | [address] | | | [place] [address] | + + + | Home Phone [...] Providers + +------+ + | Care Welder Assistant Name | Role | Phone | [...] + + | 09/13/ | Office | [facility] | Bahman Gant MD | Other dysphagia | | 2013 | Visit | OTOLARYNGOLOGY [address] | [address] [place] | (Primary Dx) | | | | [address] | [address] [place], | | | | | [place], [place] | [place] [address] | | | | | [address] | [phone] | | | | | [phone] | | | +--------+---------+ + + + [...] MD - 09/13/2013 5:46 PM PDTSee dictation #[id number] signed by Joseph Gant MD at 09/13/2013 5:52 PM Bahamn Lamb MD - 09/13/2013 12:00 AM PDT ENT AND AUDIOLOGY [address] [facility] [address] [place] [address] FAX: [phone] OFFICE VISIT The patient gives a history [...] Gant MD GM / MS JOB #: [id number] signed by Bahman Gant MD at 09/14/2013 [...] | | | | | | [place] [address] | | | | | | [phone] | | | | | | | [...] | | | | | | [place] [address] | | | | | | [phone] | | | | | | | | +--------+ + + + + | 05/21/ | Implant | Cardiology | Daljit Singletary, | Remote Device | | 2019 | Monitor | | MD Sim [facility] | Interrogation | | | | | [place], | (Primary Dx); | | | | | [place] [address] | Pacemaker; | | | | | [phone] | Sinoatrial node | | | | [...]
--- OUTSIDE RECORDS SUMMARY | ~2020-04-13 | XMS | Encounter Summary ---
Demographics + + + | Address | [address] [place] [address] [address] LOZ[address]O | | | [place] [address] | + + + | Home Phone [...] [place] | | | | | [address] | | + + + + + Care Team Providers + +------+ + | Care Practical Nursing Faculty Name | Role | Phone | [...] | | | | l weight | [place], [place] | | | | | | loss | [address] | | | | | | Procedures | Phone: | | | | | | CONSULT TO | [phone] | | | | | | NON - [facility] | Fax: | | | | | | PROVIDER | [phone] | | | | | | CONSULT [...] [facility] [address]85 | MD [address] | change location of | | | | [address] | [place], [place] | referral ) | | | | Mailcode: Center | [address] | | | | | for Health and | [phone] | | | | | [facility] 2 | | | | | | [place], [place] | | | | | | [address] | | | | | | [phone] | | | +--------+ + + + [...]
--- OUTSIDE RECORDS SUMMARY | ~2020-04-13 | XMS | Encounter Summary ---
Demographics + + + | Address | [address] | | | [place] [address] | + + + | Home Phone [...] + +------+ + | Care It Application Administrator Name | Role | Phone | [...] Eva ROUSE | | | | | [place], [place] | [address] | | | | | [address] | [place] [address] | | | | | [phone] | [phone] | | | | | | | [...] | | | | | | [place] [address] | | | | | | [phone] | | | | | | | [...] | | | | | | [place] [address] | | | | | | [phone] | | | | | | | | +--------+ + + + + | 05/21/ | Implant | Cardiology | Daljit Singletary, | Remote Device | 2019 | Monitor | | MD Sim [place] | Interrogation | | | | | [place], | (Primary Dx); | | | | | [place] [address] | Pacemaker; | | | | | [phone] | Sinoatrial node | | | | [...]
--- OUTSIDE RECORDS SUMMARY | ~2020-04-13 | XMS | Encounter Summary ---
Demographics + + + | Address | [address] | | | [place] [address] | + + + | Home Phone [...] + +------+ + | Care Stripping Shovel Operator Name | Role | Phone [...] [place] | | | | | | [address] | | | | | | [phone] | | | +--------+ + + + [...] W | | | | | | [place], | | | | | | [place] [address] | | | | | | [phone] | | | | | | | | +--------+ + + + + | 05/01/ | Procedure | Cardiology | | | | 2019 | visit | | | | +--------+ + + + + | 05/01/ | Office | Cardiology | Silvia, | | | 2019 | Visit | | PARISA Vernon [address] | | | | | | [place], | | | | | | [place] [address] | | | | | | [phone] | | | | | | | | +--------+ + + + + | 05/21/ | Implant | Cardiology | Daljit Singletary, | Remote Device | | 2019 | Monitor | | [address] [facility] | Interrogation | | | | | [place], | (Primary Dx); | | | | | [place] [address] | Pacemaker; | | | | | [phone] | Sinoatrial node | | | | | | dysfunction (HCC) | | | | | | with symptomatic | | | | | | bradycardia | +--------+ + + + + documented as of this encounter Visit Diagnoses Not on filedocumented in this encounter"
--- OUTSIDE RECORDS SUMMARY | ~2020-04-13 | XMS | Encounter Summary ---
Demographics + + + | Address | [address] [place] [address] [address] LOZ[address]O | | | [place] [address] | + + + | Home Phone [...] [place] | | | | | [address] | | + + + + + Care Team Providers + +------+ + | Care Burrito Maker Name | Role | Phone | [...] | 2020 | | Center at [facility] 34[address] | [facility] | (capsule referral) | | | | [address] | Road | | | | | Mailcode: Center | [address] | | | | | for Health and | | | | | | [facility] 2 | | | | | | | | | | | | [address] | | | | | | [phone] | | | +--------+ + + + [...]
--- OUTSIDE RECORDS SUMMARY | ~2020-04-13 | XMS | Encounter Summary ---
Demographics + + + | Address | [address] | | | [place] [address] | + + + | Home Phone [...] Providers + +------+ + | Care General Manager Farm Name | Role | Phone [...] | | | pain | [address] | [address] | | | | | Procedures | [place] | [place], | | | | | [place] Nuclear | [place] | [place] | | | | | Stress Test | [address] | [address] | | | | | (Vasodilator | Phone: | Phone: | | | | | ) CHG | [phone] | [phone] | | | | | MYOCARDIAL | Fax: | Fax: | | | | | SPECT | [phone] | [phone] | | | | | MULTIPLE | | | | | | | STUDIES | | | +--------+--------+ + + + + Encounter Details +--------+ + + + + | Date | Type | Department | Care Team | Description | +--------+ + + + + | 12/06/ | Hospital | [facility] | Geri Angel, | Other chest pain | | 2013 | Encounter | MED CTR XRAY [address] | CLINICAL SERVICES ASSISTANT [address] | | | | | [address] [place] | [place] | | | | | [place] [address] | [address] | | | | | [phone] | | | +--------+ + + + [...] + + +---------+ + + | [place]-3 Fatty | CAPS, one capsule by [...] | | | | | | [place] [address] | | | | | | [phone] | | | | | | | [...] | | | | | | [place] [address] | | | | | | [phone] | | | | | | | | +--------+ + + + + | 05/21/ | Implant | Cardiology | Daljit Singletary, | Remote Device | 2019 | Monitor | | [address] | Interrogation | | | | | [place], | (Primary Dx); | | | | | [place] [address] | Pacemaker; | | | | | [phone] | Sinoatrial node | | | | [...] [facility] Diagnostic Imaging | [place] | | Department [address] [place] | [address] | | [ rep [address]] [ rep [facility] | | st zip] Signed | - IMAGING | | | | | Patient Name: MOE GAY | | | Physician: JACKLYN : 1960 Age: 53 Sex: M Unit | | | #: [id number] Exam Date: 12/06/13 Location: | | | [facility] Report #: [id number] Page: | | | %(RAD)RES..mtdd.print.filter("pg") of %(RAD) | | | RES..mtdd.print.filter("tpg") | | | | | | Accession Number: [id number] | | | PERSANTINE SESTAMIBI STRESS TEST, [...] Transcribed Date/Time: 12/07/2013 08:18 | | | Business Objects Report Developer: <<Signature on File>> | | | | | | Daljit Singletary MD [facility] FASE12/07/13 1321 <Electronically signed | | | by Daljit Singletary MD, [facility], FACDamien, ADELINE, YEN> Daljit | | | MD Gemini [facility] ADELINE 12/07/13 0701 Business Objects Report Developer: Cheyennex | | | Dssqgpokqiugj70/16/14 0818 PARISA Garcia | | + + + + + + + + | Performing | Address | City/State/Zipcode | Phone Number | | Organization | | | | + + + + + | [facility] | [address] | [place] | [phone] | | [facility] | | [address] | | | - IMAGING | | | | + + + + + documented in this encounter Visit Diagnoses + + | Diagnosis | + + | Other chest pain | + + documented in this encounter
--- OUTSIDE RECORDS SUMMARY | ~2020-04-13 | XMS | Encounter Summary ---
Demographics + + + | Address | [address] | | | [place] [address] | + + + | Home Phone [...] Team Providers + +------+ + | Care Baggage Inspector Name | Role | Phone | [...] [address] | | | | | [place] | [address] [place] | | | | | [address] | [address] | | | | | [phone] | | | +--------+ + + + [...] | | | | | | [place] [address] | | | | | | [phone] | | | | | | | [...] | | | | | | [place] [address] | | | | | | [phone] | | | | | | | | +--------+ + + + + | 05/21/ | Implant | Cardiology | Daljit Singletary, | Remote Device | 2019 | Monitor | | [address] | Interrogation | | | | | [place], | (Primary Dx); | | | | | [place] [address] | Pacemaker; | | | | | [phone] | Sinoatrial node | | | | | | dysfunction (HCC) | | | | | | with symptomatic | | | | | | bradycardia | +--------+ + + + + documented as of this encounter Visit Diagnoses Not on filedocumented in this encounter"
--- OUTSIDE RECORDS SUMMARY | ~2020-04-13 | XMS | Encounter Summary ---
Demographics + + + | Address | [address] | | | [place] [address] | + + + | Home Phone [...] Providers + +------+ + | Care Continuous Absorption Process Operator Name | Role | Phone [...] | | | | | [place], | [place], | | | | | [place] [address] | [place] [address] | | | | | [phone] | [phone] | | | | | | | [...] | | | | | | [place] [address] | | | | | | [phone] | | | | | | | [...] | | | | | | [place] [address] | | | | | | [phone] | | | | | | | | +--------+ + + + + | 05/21/ | Implant | Cardiology | Daljit Singletary, | Remote Device | 2019 | Monitor | | MD Sim [place] | Interrogation | | | | | [place], | (Primary Dx); | | | | | [place] [address] | Pacemaker; | | | | | [phone] | Sinoatrial node | | | | [...]
--- OUTSIDE RECORDS SUMMARY | ~2020-04-13 | XMS | Encounter Summary ---
Demographics + + + | Address | [address] [place] [address] [address] LOZANO | | | [place] [address] | + + + | Home Phone [...] [place] | | | | | [address] | | + + + + + Care Team Providers + +------+ + | Care Window Shade Estimator Name | Role | Phone | [...] | | | | | Unintentiona | [address] | | | | | | l weight | Ave | | | | | | loss | [facility] [place] | | | | | | Abdominal | [address] | | | | | | cramping | Phone: | | | | | | Chronic | [phone] | | | | | | diarrhea | Fax: | | | | | | Rectal | [phone] | | | | | | bleeding [...] | | 2020 | | Center at [facility] [address] | [address] | | | | | [address] | [place], [place] | | | | | Mailcode: Nuevo | [address] | | | | | for Health and | [phone] | | | | | [facility], Building [address] | | | | | | [place], [place] | | | | | | [address] | | | | | | [phone] | | | +--------+ + + + [...]
--- OUTSIDE RECORDS SUMMARY | ~2020-04-13 | XMS | Encounter Summary ---
Demographics + + + | Address | [address] | | | [place] [address] | + + + | Home Phone [...] + +------+ + | Care Real Estate Transaction Coordinator Name | Role | Phone | [...] Provider Unknown | | | | | [place], [place] | [phone] | | | | | [address] | | | | | | [phone] | | | +--------+ + + + [...] + + + +---------+ + + | [place]-3 Fatty | CAPS, one capsule by | [...] | | | | | | | #[id number], exp 07/2016 | | | | | [...] | | | | | | [place] [address] | | | | | | [phone] | | | | | | | | +--------+ + + + + | 05/01/ | Procedure | Cardiology | | | | 2019 | visit | | | | +--------+ + + + + | 05/01/ | Office | Cardiology | Silvia, | | | 2019 | Visit | | PARISA Vernon [address] | | | | | | [place], | | | | | | [place] [address] | | | | | | [phone] | | | | | | | | +--------+ + + + + | 05/21/ | Implant | Cardiology | Daljit Singletary, | Remote Device | | 2020 | Monitor | | [address] [place] | Interrogation | | | | | [place], | (Primary Dx); | | | | | [place] [address] | Pacemaker; | | | | | [phone] | Sinoatrial node | | | | [...]
--- OUTSIDE RECORDS SUMMARY | ~2020-04-13 | XMS | Encounter Summary ---
Demographics + + + | Address | [address] | | | [place] [address] | + + + | Home Phone [...] | 10/26/ | Refill | [facility] | Kirk French | Medication Refill | | 2019 | | GASTROENTEROLOGY | MD Brea [address] | | | | | [address] [place] | [address] | | | | | [address] [place], [place] | [place] [address] | | | | | [address] | [phone] | | | | | [phone] | | | +--------+--------+ + + + [...] | | | | | | [place] [address] | | | | | | [phone] | | | | | | | | +--------+ + + + + | 05/01/ | Procedure | Cardiology | | | | 2019 | visit | | | | +--------+ + + + + | 05/01/ | Office | Cardiology | Silvia, | | | 2019 | Visit | | PARISA Vernon [address] | | | | | | [place], | | | | | | [place] [address] | | | | | | [phone] | | | | | | | | +--------+ + + + + | 05/21/ | Implant | Cardiology | Daljit Singletary, | Remote Device | 2019 | Monitor | | [address] [facility] | Interrogation | | | | | [place], | (Primary Dx); | | | | | [place] [address] | Pacemaker; | | | | | [phone] | Sinoatrial node | | | | | | dysfunction (HCC) | | | | | | with symptomatic | | | | | | bradycardia | +--------+ + + + + documented as of this encounter Visit Diagnoses Not on filedocumented in this encounter"
--- OUTSIDE RECORDS SUMMARY | ~2020-04-13 | XMS | Encounter Summary ---
Demographics + + + | Address | [address] | | | [place] [address] | + + + | Home Phone [...] Providers + +------+ + | Care Senior Living Sales Counselor Name | Role | Phone | [...] | CARDIOLOGY [address] | [address] [place] | [facility]) | | | | [place], | [place], | | | | | [place] [address] | [place] [address] | | | | | [phone] | [phone] | | | | | | | [...] | | | | | | [place] [address] | | | | | | [phone] | | | | | | | | +--------+ + + + + | 05/01/ | Procedure | Cardiology | | | | 2019 | visit | | | | +--------+ + + + + | 05/01/ | Office | Cardiology | Silvia, | | | 2019 | Visit | | PARISA Vernon [address] | | | | | | [place], | | | | | | [place] [address] | | | | | | [phone] | | | | | | | | +--------+ + + + + | 05/21/ | Implant | Cardiology | Daljit Singletary, | Remote Device | 2019 | Monitor | | [address] [facility] | Interrogation | | | | | [place], | (Primary Dx); | | | | | [place] [address] | Pacemaker; | | | | | [phone] | Sinoatrial node | | | | | | dysfunction (HCC) | | | | | | with symptomatic | | | | | | bradycardia | +--------+ + + + + documented as of this encounter Visit Diagnoses Not on filedocumented in this encounter"
--- OUTSIDE RECORDS SUMMARY | ~2020-04-13 | XMS | Encounter Summary ---
Demographics + + + | Address | [address] | | | [place] [address] | + + + | Home Phone [...] Providers + +------+ + | Care Director Alliance Marketing Name | Role | Phone | [...] | 04/07/ | Office | [facility] [place] [facility] | Matthew Uriarte | Left ureteral | | 2019 | Visit | [address] | MD Tawanna [address] | calculus (Primary | | | | [place], [place] | AVE [place], [place] | Dx); Kidney stones | | | | [address] | [address] | | | | | [phone] | | | +--------+---------+ + + + [...] April 13, 2019 at 7:45 AM at [facility]. Please report to the Surgery and Procedure Center no later than 6:15 AM. REMEMBER: NOTHING TO EAT OR DRINK AFTER MIDNIGHT April 12, 2019. NO FISH OIL, ASPIRIN OR ASPIRIN PRODUCTS ONE WEEK PRIOR TO SURGERY. Tylenol and Advil are OK. You will need to get the following testing done prior to surgery: CBC, BMP YOU WILL NEED TO BRING A RN TEAM LEADER WITH YOU THE DAY OF SURGERY. Call us at [phone] with any questions. [] Pain management booklet [...] [employer] Peptic ulcer disease Premature ventricular contraction [facility] care 06/26/2013 LAST PSA:12/16/2010 RESULT:0.14 LAST COLONOSCOPY:02/05/2009 [...] CV LHC; Surgeon: Daljit Singletary MD; Location: [facility] CV LAB CARDIAC CATHERIZATION N/A 01/25/2019 Procedure: CV Cor Angio; Surgeon: Daljit Singletary MD; Location: [facility] CV LAB COLONOSCOPY N/A 12/24/2017 Procedure: COLONOSCOPY; Surgeon: Emmanuel Daniel MD; Location: [facility] MEDICAL PROCEDURE UNIT COLONOSCOPY N/A 01/05/2019 Procedure: COLONOSCOPY; Surgeon: Emmanuel Daniel MD; Location: [facility] MEDICAL PROCEDURE UNIT EGD 12/24/2017 [...] Procedure: EGD; Surgeon: Emmanuel Daniel MD; Location: [facility] MEDICAL PROCEDURE UNIT UPPER GASTROINTESTINAL ENDOSCOPY N/A 01/05/2019 Procedure: EGD; Surgeon: Emmanuel Daniel MD; Location: [facility] MEDICAL PROCEDURE UNIT VASECTOMY Family History: [...] DAY, Disp: 90 tablet, Rfl: 3 [facility] Natural Products (OSTEO BI-FLEX/5-LOXIN ADVANCED PO), Take [...] 911, Disp: 100 ta blet, Rfl: 3 [place]-3 Fatty Acids (SALMON OIL-1000 PO), CAPS, one capsule by mouth daily twice daily , Disp: , Rfl: ondansetron (ZOFRAN ODT) 4 mg disintegrating tablet, Take 4 mg by mouth., Disp: , Rfl: ONE TOUCH DELICA LANCETS [facility], Check glucose as needed [...] have not thoroughly proofread this note, and membership advisor errors are very likely to occur. CC: [...] | | | | | | [place], | | | | | | [place] [address] | | | | | | [phone] | | | | | | | | +--------+ + + + + | 05/01/ | Procedure | Cardiology | | | | 2019 | visit | | | | +--------+ + + + + | 05/01/ | Office | Cardiology | Silvia, | | | 2019 | Visit | | PARISA Vernon W | | | | | | [place], | | | | | | [place] [address] | | | | | | [phone] | | | | | | | | +--------+ + + + + | 05/21/ | Implant | Cardiology | Daljit Singletary, | Remote Device | 2019 | Monitor | | MD [address] [place] | Interrogation | | | | | [place], | (Primary Dx); | | | | | [place] [address] | Pacemaker; | | | | | [phone] | Sinoatrial node | | | | [...]
--- OUTSIDE RECORDS SUMMARY | ~2020-04-13 | XMS | Encounter Summary ---
Demographics + + + | Address | [address] | | | [place] [address] | + + + | Home Phone [...] + +------+ + | Care Vice President Biostatistics Name | Role | Phone | + [...] + + | 05/15/ | Office | [facility] | Matthew Uriarte | Kidney stones | | 2019 | Visit | [address] | MD Tawanna [address] | (Primary Dx) | | | | [place] | AVE [place] | | | | | [address] | [address] | | | | | [phone] | | | +--------+---------+ + + + [...] CV LHC; Surgeon: Daljit Singletary MD; Location: [facility] CV LAB CARDIAC CATHERIZATION N/A 01/25/2019 Procedure: CV Cor Angio; Surgeon: Daljit Singletary MD; Location: [facility] CV LAB COLONOSCOPY N/A 12/24/2017 Procedure: COLONOSCOPY; Surgeon: Emmanuel Daniel MD; Location: [facility] MEDICAL PROCEDURE UNIT COLONOSCOPY N/A 01/05/2019 Procedure: COLONOSCOPY; Surgeon: Emmanuel Daniel MD; Location: [facility] MEDICAL PROCEDURE UNIT EGD 12/24/2017 HARDWARE [...] EGD; Surgeon: Emmanuel Daniel MD; Location: [facility] MEDICAL PROCEDURE UNIT UPPER GASTROINTESTINAL ENDOSCOPY N/A 01/05/2019 Procedure: EGD; Surgeon: Emmanuel Daniel MD; Location: [facility] MEDICAL PROCEDURE UNIT URETEROSCOPY Left 04/13/2019 Procedure: Cystoscopy, Left ureteroscopy with laser lithotripsy, Left ureteral stent place ment; Surgeon: Matthew Uriarte MD; Location: [facility] MAIN OR VASECTOMY Family History: Family [...] 911, Disp: 100 ta blet, Rfl: 3 [place]-3 Fatty Acids (SALMON OIL-1000 PO), CAPS, one [...] pH, Urine 8.0 5.0 - 8.0 Specific [place] 1.008 1.001 - 1.030 Protein, Urine Negative [...] have not thoroughly proofread this note, and manufacturing group leader errors are very likely to occur. CC: [...] | | | | | | [place], | | | | | | [place] [address] | | | | | | [phone] | | | | | | | | +--------+ + + + + | 05/01/ | Procedure | Cardiology | | | | 2019 | visit | | | | +--------+ + + + + | 05/01/ | Office | Cardiology | Silvia, | | | 2019 | Visit | | PARISA Vernon W | | | | | | [place], | | | | | | [place] [address] | | | | | | [phone] | | | | | | | | +--------+ + + + + | 05/21/ | Implant | Cardiology | Daljit Singletary, | Remote Device | 2019 | Monitor | | MD [address] [place] | Interrogation | | | | | [place], | (Primary Dx); | | | | | [place] [address] | Pacemaker; | | | | | [phone] | Sinoatrial node | | | | [...]
--- OUTSIDE RECORDS SUMMARY | ~2020-04-13 | XMS | Encounter Summary ---
Demographics + + + | Address | [address] | | | [place] [address] | + + + | Home Phone [...] Team Providers + +------+ + | Care Gastroenterology Teacher Name | Role | Phone | [...] | CARDIOLOGY [address] | [address] [place] | Interrogation | | | | [place], | [place], | (Primary Dx); | | | | [place] [address] | [place] [address] | Presence of | | | | [phone] | [phone] | permanent cardiac | | | | [...] | | | | | | [place] [address] | | | | | | [phone] | | | | | | | | +--------+ + + + + | 05/01/ | Procedure | Cardiology | | | | 2019 | visit | | | | +--------+ + + + + | 05/01/ | Office | Cardiology | Silvia, | | | 2019 | Visit | | PARISA Vernon [address] | | | | | | [place], | | | | | | [place] [address] | | | | | | [phone] | | | | | | | | +--------+ + + + + | 05/21/ | Implant | Cardiology | Daljit Singletary, | Remote Device | 2019 | Monitor | | [address] [facility] | Interrogation | | | | | [place], | (Primary Dx); | | | | | [place] [address] | Pacemaker; | | | | | [phone] | Sinoatrial node | | | | [...]
--- OUTSIDE RECORDS SUMMARY | ~2020-04-13 | XMS | Encounter Summary ---
Demographics + + + | Address | [address] | | | [place] [address] | + + + | Home Phone [...] Providers + +------+ + | Care Signal Intelligence Analyst Name | Role | Phone | + +------+ + PCP | Unavailable | + +------+ + Encounter Details +--------+ + + + + | Date | Type | Department | Care Team | Description | +--------+ + + + + | 01/14/ | Hospital | [facility] | Deburi, | [facility]HE NOS | | 2004 | Encounter | [facility]ICAL [facility]ENTER | MD Tai [address] | | | | | CLINICAL DECISION | [place] | | | | | UN[address] | [place] [address] | | | | | [place], [place] | [phone] | | | | | [address] | | | | | | [phone] | | | +--------+ + + + [...] W | | | | | | [place], | | | | | | [place] [address] | | | | | | [phone] | | | | | | | | +--------+ + + + + | 05/01/ | Procedure | Cardiology | | | | 2019 | visit | | | | +--------+ + + + + | 05/01/ | Office | Cardiology | Silvia, | | | 2019 | Visit | | [address] | | | | | | [place], | | | | | | [place] [address] | | | | | | [phone] | | | | | | | | +--------+ + + + + | 05/21/ | Implant | Cardiology | Daljit Singletary, | Remote Device | | 2019 | Monitor | | MD Sim Hockley [place] | Interrogation | | | | | [place], | (Primary Dx); | | | | | [place] [address] | Pacemaker; | | | | | [phone] | Sinoatrial node | | | | | | dysfunction (HCC) | | | | | | with symptomatic | | | | | | bradycardia | +--------+ + + + + documented as of this encounter Visit Diagnoses + + | Diagnosis | + + | Backache, unspecified | + + documented in this encounter"
--- OUTSIDE RECORDS SUMMARY | ~2020-04-13 | XMS | Encounter Summary ---
Demographics + + + | Address | [address] | | | [place] [address] | + + + | Home Phone [...] Providers + +------+ + | Care Medical Translator Name | Role | Phone | + [...] | 09/30/ | Telephone | [facility] [place] | Daljit Singletary, | Other (Danieljoao | | 2018 | | [place] [address] | remote) | | | | [place], | [place], | | | | | [place] [address] | [place] [address] | | | | | [phone] | [phone] | | | | | | | [...] | | | | | | [place] [address] | | | | | | [phone] | | | | | | | | +--------+ + + + + | 05/01/ | Procedure | Cardiology | | | | 2019 | visit | | | | +--------+ + + + + | 05/01/ | Office | Cardiology | Silvia, | | | 2019 | Visit | | PARISA [address] | | | | | | [place], | | | | | | [place] [address] | | | | | | [phone] | | | | | | | | +--------+ + + + + | 05/21/ | Implant | Cardiology | Daljit Singletary, | Remote Device | 2019 | Monitor | | MD Chiquis Oro | Interrogation | | | | | [place], | (Primary Dx); | | | | | [place] [address] | Pacemaker; | | | | | [phone] | Sinoatrial node | | | | | | dysfunction (HCC) | | | | | | with symptomatic | | | | | | bradycardia | +--------+ + + + + documented as of this encounter Visit Diagnoses Not on filedocumented in this encounter"
--- OUTSIDE RECORDS SUMMARY | ~2020-04-13 | XMS | Encounter Summary ---
Demographics + + + | Address | [address] | | | [place] [address] | + + + | Home Phone [...] Team Providers + +------+ + | Care Debit Agent Name | Role | Phone | [...] + + | 06/06/ | Office | [facility] | Silvia, | Essential | | 2019 | Visit | CARDIOLOGY [address] | PARISA [address] | hypertension | | | | [place], | [place], | (Primary Dx); | | | | [place] [address] | [place] [address] | Sinoatrial node | | | | [phone] | [phone] | dysfunction (HCC) | | | | | | with symptomatic | | | | | | bradycardia; | | | | | | Symptomatic PVCs; | | | | | | Tachycardia; | | | | | | Coronary artery | | | | | | disease involving | | | | | | rincon coronary | | | | | | artery of rincon | | | | | | heart [...] encounter Patient Instructions Patient Instructions Julia Allen, Corporate Banking Officer - 06/06/2019 2:15 PM PDT1. Take a [...] of -critical coronary artery dise ase involving rincon coronary artery of rincon heart without angina pectoris, essential hype rtension, [...] was seen in the emergency department at [facility] in [place] due to chest pain, no medication changes at that time. On 06/02/2019 he was seen here in the [facility] department with chest pain, irregular heart [...] 3RD DOSE, CALL 911 100 tablet 3 [place]-3 Fatty Acids (SALMON OIL-1000 PO) CAPS, one capsule by mouth daily twice daily ondansetron (ZOFRAN ODT) 4 mg disintegrating tablet Take 4 mg by mouth every 8 hours as needed for Nausea. ONE TOUCH DELICA LANCETS [facility] [...] 47 06/02/2019 I reviewed records from [facility] for emergency department visit o n 06/02/2019 which is summarized in the HPI. RESULTS- I reviewed reports from [facility]: Ct Abdomen Pelvis W Contrast Result [...] ASSESSMENT: 1. Non-critical Coronary artery disease involving rincon coronary artery of rincon heart [facility] angina pectoris: A.Normal exercise sestamibi stress test [...] by Dr Juan Diego Gambino at [facility] on 01/30/2013.Patient had spontaneous PVC'sfr om 3 [...] to go back in 3 days to [place] for an attempt of ablation under general [...] device function. Estimated remaining [facility] longevity is 3.5 years. D. [...] visit, or sooner with concerns. Julia Clemente, Corporate Banking Officer am acting as a scribe on behalf of, and in the presenc e of PARISA Lomas. - Reji Church 06/06/2019 15:10 Janeen Clemente ARNP, personally performed the services described in this documentati on, as scribed in my presence and it is both accurate and complete. -PARISA Lomas 06/06/2019 Portions of this chart may have been created with [employer] voice recognition software. Occasi onal wrong-word [...] | | | | | | [place] [address] | | | | | | [phone] | | | | | | | | +--------+ + + + + | 05/01/ | Procedure | Cardiology | | | 2019 | visit | | | | +--------+ + + + + | 05/01/ | Office | Cardiology | Silvia, | | | 2019 | Visit | | PARISA Vernon [address] | | | | | | [place], | | | | | | [place] [address] | | | | | | [phone] | | | | | | | | +--------+ + + + + | 05/21/ | Implant | Cardiology | Sydni Singletary, | Remote Device | | 2019 | Monitor | | [address] [facility] | Interrogation | | | | | [place], | (Primary Dx); | | | | | [place] [address] | Pacemaker; | | | | | [phone] | Sinoatrial node | | | | [...] MD | | | | | | ([id number]) on 06/06/2019 | | | | | [...] rincon heart without | | angina pectoris | + + | Syncope, unspecified syncope type | + + | Ascending thoracic aortic aneurysm (HCC) Thoracic aneurysm without mention of rupture | + + | Hyperlipidemia, mixed Mixed hyperlipidemia | + + documented in this encounter
--- OUTSIDE RECORDS SUMMARY | ~2020-04-13 | XMS | Encounter Summary ---
Demographics + + + | Address | [address] | | | [place] [address] | + + + | Home Phone [...] Providers + +------+ + | Care Road Cutter Name | Role | Phone | + +------+ + | Kirk French MD | PCP | | + +------+ + Encounter Details +--------+ + + + + | Date | Type | Department | Care Team | Description | +--------+ + + + + | 12/24/ | Anesthesia | [facility] | Jarett Barakat | | | 2018 | Event | MED CTR MP INTRA OP | P, MD [address] | | | | | [address] | [address] [place], [place] | | | | | [place], [place] | [address] | | | | | [address] | [phone] | | | | | [phone] | | | | | | | Arthur Wesley, | | | | | | [address] | | | | | | [place], [place] | | | | | | [address] | | | | | | | [...] 12/24/17 1435 by | | eral | otzo-elj-uwrtrl catheter system; | Desmond Teresa RN | [...] | | | | | | [place] [address] | | | | | | [phone] | | | | | | | | +--------+ + + + + | 05/01/ | Procedure | Cardiology | | | | 2019 | visit | | | | +--------+ + + + + | 05/01/ | Office | Cardiology | Silvia | | | 2019 | Visit | | Janeen, SLITTER HELPER [address] | | | | | | [place], | | | | | | [place] [address] | | | | | | [phone] | | | | | | | | +--------+ + + + + | 05/21/ | Implant | Cardiology | Daljit Singletary, | Remote Device | | 2020 | Monitor | | [address] | Interrogation | | | | | [place], | (Primary Dx); | | | | | [place] [address] | Pacemaker; | | | | | [phone] | Sinoatrial node | | | | [...]
--- OUTSIDE RECORDS SUMMARY | ~2020-04-13 | XMS | Encounter Summary ---
Demographics + + + | Address | [address] | | | [place] [address] | + + + | Home Phone [...] Providers + +------+ + | Care Glass Science Engineer Name | Role | Phone | [...] | | [address] [place] | [place] [address] | | | | | [place] [address] | | | | | | [phone] | | | +--------+ + + + [...] | | | | | | [place] [address] | | | | | | [phone] | | | | | | | [...] | | | | | | [place] [address] | | | | | | [phone] | | | | | | | | +--------+ + + + + | 05/21/ | Implant | Cardiology | Daljit Singletary, | Remote Device | 2019 | Monitor | | [address] [place] | Interrogation | | | | | [place], | (Primary Dx); | | | | | [place] [address] | Pacemaker; | | | | | [phone] | Sinoatrial node | | | | [...] for comparison only - no result from [place]. | | + + + + +---------+ + + | Performing | Address | City/State/Zipcode | Phone Number | | Organization | | | | + +---------+ + + | [facility] | | | | + +---------+ + + documented in this encounter Visit Diagnoses Not on filedocumented in this encounter"
--- OUTSIDE RECORDS SUMMARY | ~2020-04-13 | XMS | Encounter Summary ---
Demographics + + + | Address | [address] | | | [place] [address] | + + + | Home Phone [...] Providers + +------+ + | Care Vegetable Farming Supervisor Name | Role | Phone [...] [address] | | | | | [employer] [place], | [employer] [place], | | | | | [place] [address] | [place] [address] | | | | | [phone] | [phone] | | | | | | | [...] | | | | | | [place] [address] | | | | | | [phone] | | | | | | | | +--------+ + + + + | 05/01/ | Procedure | Cardiology | | | | 2019 | visit | | | | +--------+ + + + + | 05/01/ | Office | Cardiology | iSlvia, | | | 2019 | Visit | | PARISA Vernon [address] | | | | | | [employer] [place], | | | | | | [place] [address] | | | | | | [phone] | | | | | | | | +--------+ + + + + | 05/21/ | Implant | Cardiology | Daljit Singletary, | Remote Device | 2019 | Monitor | | [address] [employer] | Interrogation | | | | | [place], | (Primary Dx); | | | | | [place] [address] | Pacemaker; | | | | | [phone] | Sinoatrial node | | | | | | dysfunction (HCC) | | | | | | with symptomatic | | | | | | bradycardia | +--------+ + + + + documented as of this encounter Visit Diagnoses Not on filedocumented in this encounter"
--- OUTSIDE RECORDS SUMMARY | ~2020-04-13 | XMS | Encounter Summary ---
Demographics + + + | Address | [address] | | | [place] [address] | + + + | Home Phone [...] Team Providers + +------+ + | Care Exhibition Carver Name | Role | Phone | [...] | SLEEP DISORDER [address] | [address] | sleep apnea) | | | | [address] [place] | [place] | (Primary Dx) | | | | [place] [address] | [address] | | | | | [phone] | | | +--------+---------+ + + + [...] AM PDTGo to [facility] for replacement equipment including: Nasal pillows or [...] pillows obtained from: [facility] [place] pressure is: 13 cm CPAP download shows [...] to go to [facility] [place] to replace his equipment, but it had [...] to go to [facility] [place] to g et a new mask and filter. He is to work toward wearing his CPAP 100% of the time he is asle ep. I will follow up again in 1 month, sooner prn. Fifteen minutes were spent [id number], wi th the majority of time spent [...] W | | | | | | [place], | | | | | | [place] [address] | | | | | | [phone] | | | | | | | | +--------+ + + + + | 05/01/ | Procedure | Cardiology | | | | 2019 | visit | | | | +--------+ + + + + | 05/01/ | Office | Cardiology | Silvia, | | | 2019 | Visit | | PARISA [address] | | | | | | [place], | | | | | | [place] [address] | | | | | | [phone] | | | | | | | | +--------+ + + + + | 05/21/ | Implant | Cardiology | Daljit Singletary, | Remote Device | | 2020 | Monitor | | [address] [facility] | Interrogation | | | | | [place], | (Primary Dx); | | | | | [place] [address] | Pacemaker; | | | | | [phone] | Sinoatrial node | | | | [...]
--- OUTSIDE RECORDS SUMMARY | ~2020-04-13 | XMS | Encounter Summary ---
Demographics + + + | Address | [address] | | | [place] [address] | + + + | Home Phone [...] + | 09/01/ | Telephone | [facility] | [place]via, | Appointment | | 2016 | | CARDIOLOGY [address] | PARISA [place] [address] | (Reschedule) | | | | [place], | [place], | | | | | [place] [address] | [place] [address] | | | | | [phone] | [phone] | | | | | | | [...] | | 2019 | | | PARISA [address] | | | | | | [place], | | | | | | [place] [address] | | | | | | [phone] | | | | | | | | +--------+ + + + + | 05/01/ | Procedure | Cardiology | | | | 2019 | visit | | | | +--------+ + + + + | 05/01/ | Office | Cardiology | Silvia, | | | 2019 | Visit | | PARISA Vernon [address] | | | | | | [place], | | | | | | [place] [address] | | | | | | [phone] | | | | | | | | +--------+ + + + + | 05/21/ | Implant | Cardiology | Daljit Singletary, | Remote Device | | 2019 | Monitor | | [facility] | Interrogation | | | | | [place], | (Primary Dx); | | | | | [place] [id number] | Pacemaker; | | | | | [phone] | Sinoatrial node | | | | | | dysfunction (HCC) | | | | | | with symptomatic | | | | | | bradycardia | +--------+ + + + + documented as of this encounter Visit Diagnoses Not on filedocumented in this encounter"
--- OUTSIDE RECORDS SUMMARY | ~2020-04-13 | XMS | Encounter Summary ---
Demographics + + + | Address | [address] | | | [place] [address] | + + + | Home Phone [...] | 2018 | Changes | GASTROENTEROLOGY | Autotransfusionist | | | | | [address] [facility] | | | | | | [address] [place] | | | | | | [address] | | | | | | [phone] | | | +--------+ + + + [...] W | | | | | | [place], | | | | | | [place] [address] | | | | | | [phone] | | | | | | | | +--------+ + + + + | 05/01/ | Procedure | Cardiology | | | | 2019 | visit | | | | +--------+ + + + + | 05/01/ | Office | Cardiology | Silvia, | | | 2019 | Visit | | PARISA [address] | | | | | | [place], | | | | | | [place] [address] | | | | | | [phone] | | | | | | | | +--------+ + + + + | 05/21/ | Implant | Cardiology | Daljit Singletary, | Remote Device | | 2020 | Monitor | | [address] [facility] | Interrogation | | | | | [place], | (Primary Dx); | | | | | [place] [address] | Pacemaker; | | | | | [phone] | Sinoatrial node | | | | | | dysfunction (HCC) | | | | | | with symptomatic | | | | | | bradycardia | +--------+ + + + + documented as of this encounter Visit Diagnoses Not on filedocumented in this encounter"
--- OUTSIDE RECORDS SUMMARY | ~2020-04-13 | XMS | Encounter Summary ---
Demographics + + + | Address | [address] | | | [place] [address] | + + + | Home Phone [...] Providers + +------+ + | Care Court Clerk Name | Role | Phone | [...] Provider Unknown | | | | | [place], [place] | [phone] | | | | | [address] | | | | | | [phone] | | | +--------+ + + + [...] + + + +---------+ + + | Pingree-3 Fatty | CAPS, one capsule by | [...] | | | | | | [place] [address] | | | | | | [phone] | | | | | | | | +--------+ + + + + | 05/01/ | Procedure | Cardiology | | | | 2019 | visit | | | | +--------+ + + + + | 05/01/ | Office | Cardiology | Silvia, | | | 2019 | Visit | | PARISA [address] | | | | | | [place], | | | | | | [place] [address] | | | | | | [phone] | | | | | | | | +--------+ + + + + | 05/21/ | Implant | Cardiology | Daljit Singletary, | Remote Device | 2019 | Monitor | | [address] [place] | Interrogation | | | | | [place], | (Primary Dx); | | | | | [place] [address] | Pacemaker; | | | | | [phone] | Sinoatrial node | | | | [...]
--- OUTSIDE RECORDS SUMMARY | ~2020-04-13 | XMS | Encounter Summary ---
Demographics + + + | Address | [address] | | | [place] [address] | + + + | Home Phone [...] Providers + +------+ + | Care Service Greeter Name | Role | Phone | [...] + + | 11/03/ | Refill | [facility] | Kirk French | Medication Refill | | 2019 | | [facility] | MD Brea [address] | | | | | [facility] [address] | [address] | | | | | [address] | [place] [address] | | | | | [place], [place] | [phone] | | | | | [address] | | | | | | [phone] | | | +--------+--------+ + + + [...] | | | | | | [place] [address] | | | | | | [phone] | | | | | | | [...] | | | | | | [place] [address] | | | | | | [phone] | | | | | | | | +--------+ + + + + | 05/21/ | Implant | Cardiology | Daljit Singletary, | Remote Device | | 2019 | Monitor | | [address] [facility] | Interrogation | | | | | [place], | (Primary Dx); | | | | | [place] [address] | Pacemaker; | | | | | [phone] | Sinoatrial node | | | | | | dysfunction (HCC) | | | | | | with symptomatic | | | | | | bradycardia | +--------+ + + + + documented as of this encounter Visit Diagnoses Not on filedocumented in this encounter"
--- OUTSIDE RECORDS SUMMARY | ~2020-04-13 | XMS | Encounter Summary ---
Demographics + + + | Address | [address] | | | [place] [address] | + + + | Home Phone [...] Team Providers + +------+ + | Care Nut Sifter Name | Role | Phone | + +------+ + PCP | Unavailable | + +------+ + Encounter Details +--------+ + + + + | Date | Type | Department | Care Team | Description | +--------+ + + + + | 03/08/ | [facility] | [facility] | Emmanuel Daniel MD | | | 2006 | Encounter | MED CTR GENERIC OP | [address] | | | | | CONV DEPT [address] | [address] [place] | | | | | [place], | [address] | | | | | [place] [address] | | | | | | [phone] | | | +--------+ + + + [...] | | | | | | [place], | | | | | | [place] [address] | | | | | | [phone] | | | | | | | | +--------+ + + + + | 05/01/ | Procedure | Cardiology | | | | 2019 | visit | | | | +--------+ + + + + | 05/01/ | Office | Cardiology | Silvia, | | | 2019 | Visit | | PARISA [address] | | | | | | [place], | | | | | | [place] [address] | | | | | | [phone] | | | | | | | | +--------+ + + + + | 05/21/ | Implant | Cardiology | Daljit Singletary, | Remote Device | 2019 | Monitor | | [address] [place] | Interrogation | | | | | [place], | (Primary Dx); | | | | | [place] [address] | Pacemaker; | | | | | [phone] | Sinoatrial node | | | | | | dysfunction (HCC) | | | | | | with symptomatic | | | | | | bradycardia | +--------+ + + + + documented as of this encounter Visit Diagnoses Not on filedocumented in this encounter"
--- OUTSIDE RECORDS SUMMARY | ~2020-04-13 | XMS | Encounter Summary ---
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 [address] | having chest pain) | | | | [place], | [place], | | | | | [place] [address] | [place] [address] | | | | | [phone] | [phone] | | | | | | | [...] W | | | | | | [place], | | | | | | [place] [address] | | | | | | [phone] | | | | | | | | +--------+ + + + + | 05/01/ | Procedure | Cardiology | | | | 2019 | visit | | | | +--------+ + + + + | 05/01/ | Office | Cardiology | Silvia, | | | 2019 | Visit | | PARISA [address] | | | | | | [place], | | | | | | [place] [address] | | | | | | [phone] | | | | | | | | +--------+ + + + + | 05/21/ | Implant | Cardiology | Daljit Singletary, | Remote Device | | 2019 | Monitor | | [facility] | Interrogation | | | | | [place], | (Primary Dx); | | | | | [place] [address] | Pacemaker; | | | | | [phone] | Sinoatrial node | | | | | | dysfunction (HCC) | | | | | | with symptomatic | | | | | | bradycardia | +--------+ + + + + documented as of this encounter Visit Diagnoses Not on filedocumented in this encounter"
--- OUTSIDE RECORDS SUMMARY | ~2020-04-13 | XMS | Encounter Summary ---
Demographics + + + | Address | [address] | | | [place] [address] | + + + | Home Phone [...] Providers + +------+ + | Care Railroad Auditor Name | Role | Phone | [...] | 06/17/ | Telephone | [facility] [place] | Silvia, | Lab Order (due for | | 2015 | | CARDIOLOGY [address] | PARISA [place] [address] | fasting labs prior | | | | [place], | [place], | to appt) | | | | [place] [address] | [place] [address] | | | | | [phone] | [phone] | | | | | | | [...] W | | | | | | [address] [place], | | | | | | [place] [address] | | | | | | [phone] | | | | | | | | +--------+ + + + + | 05/01/ | Procedure | Cardiology | | | | 2019 | visit | | | | +--------+ + + + + | 05/01/ | Office | Cardiology | Silvia, | | | 2019 | Visit | | PARISA Vernon [address] | | | | | | [place], | | | | | | [place] [address] | | | | | | [phone] | | | | | | | | +--------+ + + + + | 05/21/ | Implant | Cardiology | Daljit Singletary, | Remote Device | 2019 | Monitor | | [address] | Interrogation | | | | | [place], | (Primary Dx); | | | | | [place] [address] | Pacemaker; | | | | | [phone] | Sinoatrial node | | | | [...]
--- OUTSIDE RECORDS SUMMARY | ~2020-04-13 | XMS | Encounter Summary ---
Demographics + + + | Address | [address] | | | [place] [address] | + + + | Home Phone [...] Providers + +------+ + | Care Legal Transcriptionist Name | Role | Phone | + +------+ + PCP | Unavailable | + +------+ + Encounter Details +--------+ + + + + | Date | Type | Department | Care Team | Description | +--------+ + + + + | 09/13/ | [facility] | [facility] | Jonathan, | | | 2009 | Encounter | MED CTR EMERGENCY | Martell Cr MD [address] | | | | | CENTER [address] | [place] | | | | | [place] | [place] [address] | | | | | [address] | [phone] | | | | | [phone] | | | +--------+ + + + [...] | | | | | | [place] [address] | | | | | | [phone] | | | | | | | [...] | | | | | | [place] [address] | | | | | | [phone] | | | | | | | | +--------+ + + + + | 05/21/ | Implant | Cardiology | Daljit Singletary, | Remote Device | 2019 | Monitor | | [address] [place] | Interrogation | | | | | [place], | (Primary Dx); | | | | | [place] [address] | Pacemaker; | | | | | [phone] | Sinoatrial node | | | | | | dysfunction (HCC) | | | | | | with symptomatic | | | | | | bradycardia | +--------+ + + + + documented as of this encounter Visit Diagnoses Not on filedocumented in this encounter"
--- OUTSIDE RECORDS SUMMARY | ~2020-04-13 | XMS | Encounter Summary ---
Demographics + + + | Address | [address] | | | [place] [address] | + + + | Home Phone [...] Providers + +------+ + | Care Television Technician Name | Role | Phone | + +------+ + PCP | Unavailable | + +------+ + Encounter Details +--------+ + + + + | Date | Type | Department | Care Team | Description | +--------+ + + + + | 01/21/ | Emergency | [facility] | Kirill Dominique | Unspecified Chest | | 2009 | | MEDICAL CENTER | MD Jonas [address] | Pain | | | | EMERGENCY CENTER | [address] [place] | | | | | [address] | [address] | | | | | [place] | [phone] | | | | | [address] | | | | | | [phone] | | | +--------+ + + + [...] W | | | | | | [place], | | | | | | [place] [address] | | | | | | [phone] | | | | | | | | +--------+ + + + + | 05/01/ | Procedure | Cardiology | | | | 2019 | visit | | | | +--------+ + + + + | 05/01/ | Office | Cardiology | Silvia, | | | 2019 | Visit | | PARISA Vernon [address] | | | | | | [place], | | | | | | [place] [address] | | | | | | [phone] | | | | | | | | +--------+ + + + + | 05/21/ | Implant | Cardiology | Daljit Singletary, | Remote Device | | 2019 | Monitor | | [address] [place] | Interrogation | | | | | [place], | (Primary Dx); | | | | | [place] [address] | Pacemaker; | | | | | [phone] | Sinoatrial node | | | | [...]
--- OUTSIDE RECORDS SUMMARY | ~2020-04-13 | XMS | Encounter Summary ---
Demographics + + + | Address | [address] | | | [place] [address] | + + + | Home Phone [...] | [facility] | | | and [...] + +------+ + | Care Steam And Gas Turbine Assembler Name | Role | [...] | [address] [place] | [place] [address] | | | | | [address] | [phone] | | | | | [phone] | | | +--------+ + + + [...] | | | | | | [place] [address] | | | | | | [phone] | | | | | | | | +--------+ + + + + | 05/01/ | Procedure | Cardiology | | | | 2019 | visit | | | | +--------+ + + + + | 05/01/ | Office | Cardiology | Silvia, | | | 2019 | Visit | | PARISA [address] W | | | | | | [place], | | | | | | [place] [address] | | | | | | [phone] | | | | | | | | +--------+ + + + + | 05/21/ | Implant | Cardiology | Daljit Singletary, | Remote Device | 2019 | Monitor | | MD [facility] [place] | Interrogation | | | | | [facility], | (Primary Dx); | | | | | [place] [phone] | Pacemaker; | | | | | [phone] | Sinoatrial node | | | | | | dysfunction (HCC) | | | | | | with symptomatic | | | | | | bradycardia | +--------+ + + + + documented as of this encounter Visit Diagnoses Not on filedocumented in this encounter"
--- OUTSIDE RECORDS SUMMARY | ~2020-04-13 | XMS | Encounter Summary ---
Demographics + + + | Address | [address] | | | [place] [address] | + + + | Home Phone [...] Team Providers + +------+ + | Care Shortage Worker Name | Role | Phone | [...] | | | | [place], [place] | [phone] | | | | | [address] | | | | | | [phone] | | | +--------+ + + + [...] + + + +---------+ + + | Oviedo-3 Fatty | CAPS, one capsule by | [...] W | | | | | | [place], | | | | | | [place] [address] | | | | | | [phone] | | | | | | | | +--------+ + + + + | 05/01/ | Procedure | Cardiology | | | | 2019 | visit | | | | +--------+ + + + + | 05/01/ | Office | Cardiology | Silvia, | | | 2019 | Visit | | PARISA Vernon W | | | | | | [place], | | | | | | [place] [address] | | | | | | [phone] | | | | | | | | +--------+ + + + + | 05/21/ | Implant | Cardiology | Daljit Singletary, | Remote Device | | 2019 | Monitor | | [address] [place] | Interrogation | | | | | [place], | (Primary Dx); | | | | | [place] [address] | Pacemaker; | | | | | [phone] | Sinoatrial node | | | | [...]
--- OUTSIDE RECORDS SUMMARY | ~2020-04-13 | XMS | Encounter Summary ---
Demographics + + + | Address | [address] [place] [address] [address] | | | [place] [address] | + + + | Home Phone [...] [place] | | | | | [address] | | + + + + + Care Team Providers + +------+ + | Care Diabetologist Name | Role | Phone | + [...] as of this encounter Progress Notes Interface, Construction Electrician In - 07/19/2006 3:05 AM PDTCLINIC DATE: 06/13/2002 [facility] REFERRING PHYSICIAN: Eugene Vera D.O. [address] [place] [address] Mr. Sanchez is a new patient. He [...] proceed. Martell Allen M.D. ELIZABETH / KATTY [id number] / [id number] / [id number] / [id number] cc: Eugene Vera D.O. [address] [place] [id number] signed by Interface, Construction Electrician In at 07/19/2006 3:0 5 AM PDTdocumented in this encounter Plan of Treatment Not on filedocumented as of this encounter Visit Diagnoses Not on filedocumented in this encounter
--- OUTSIDE RECORDS SUMMARY | ~2020-04-13 | XMS | Encounter Summary ---
Demographics + + + | Address | [address] | | | [place] [address] | + + + | Home Phone [...] Team Providers + +------+ + | Care Slater Apprentice Name | Role | Phone | [...] [place] | | | | | | [address] | | | | | | [phone] | | | +--------+ + + + [...] + + + +---------+ + + | Riverside-3 Fatty | CAPS, one capsule by | [...] | | | | | | [place] [address] | | | | | | [phone] | | | | | | | | +--------+ + + + + | 05/01/ | Procedure | Cardiology | | | | 2019 | visit | | | | +--------+ + + + + | 05/01/ | Office | Cardiology | Silvia, | | | 2019 | Visit | | PARISA Vernon [address] | | | | | | [place], | | | | | | [place] [address] | | | | | | [phone] | | | | | | | | +--------+ + + + + | 05/21/ | Implant | Cardiology | Daljit Singletary, | Remote Device | 2019 | Monitor | | [facility] | Interrogation | | | | | [place], | (Primary Dx); | | | | | [place] [address] | Pacemaker; | | | | | [phone] | Sinoatrial node | | | | [...]
--- OUTSIDE RECORDS SUMMARY | ~2020-04-13 | XMS | Encounter Summary ---
Demographics + + + | Address | [address] | | | [place] [address] | + + + | Home Phone [...] Team Providers + +------+ + | Care Merchant Miller Name | Role | Phone | [...] Provider Unknown | | | | | [place], [place] | [phone] | | | | | [address] | | | | | | [phone] | | | +--------+ + + + [...] + + + +---------+ + + | Burnet-3 Fatty | CAPS, one capsule by | [...] W | | | | | | [place], | | | | | | [place] [address] | | | | | | [phone] | | | | | | | | +--------+ + + + + | 05/01/ | Procedure | Cardiology | | | | 2019 | visit | | | | +--------+ + + + + | 05/01/ | Office | Cardiology | Silvia, | | | 2019 | Visit | | PARISA Vernon W | | | | | | [place], | | | | | | [place] [address] | | | | | | [phone] | | | | | | | | +--------+ + + + + | 05/21/ | Implant | Cardiology | Daljit Singletary, | Remote Device | | 2019 | Monitor | | [address] [place] | Interrogation | | | | | [place], | (Primary Dx); | | | | | [place] [address] | Pacemaker; | | | | | [phone] | Sinoatrial node | | | | [...]
--- OUTSIDE RECORDS SUMMARY | ~2020-04-13 | XMS | Encounter Summary ---
Demographics + + + | Address | [address] | | | [place] [address] | + + + | Home Phone [...] Providers + +------+ + | Care Slasher Hand Name | Role | Phone | [...] | | | | CENTER [address] | [address] | | | | | [place] | [place] | | | | | [address] | [address] | | | | | [phone] | | | +--------+ + + + [...] + + + +---------+ + + | S[place]uma-3 Fatty | CAPS, one capsule by | [...] | | | | | [place] coronary | | | | | | | artery of [place] | | | | | | | [...] W | | | | | | [place], | | | | | | [place] [address] | | | | | | [phone] | | | | | | | | +--------+ + + + + | 05/01/ | Procedure | Cardiology | | | | 2019 | visit | | | | +--------+ + + + + | 05/01/ | Office | Cardiology | Silvia, | | | 2019 | Visit | | PARISA Vernon W | | | | | | [place], | | | | | | [place] [address] | | | | | | [phone] | | | | | | | | +--------+ + + + + | 05/21/ | Implant | Cardiology | Daljit Singletary, | Remote Device | 2019 | Monitor | | MD [address] [place] | Interrogation | | | | | [facility] [place], | (Primary Dx); | | | | | [place] [address] | Pacemaker; | | | | | [phone] | Sinoatrial node | | | | [...] [address] | [place] | [phone] | | [facility] | | [address] | | | - LABORATORY | | [...] + | [address] | [address] | [place] | [phone] | | [facility] | | [address] | | | - LABORATORY | | [...] use as of January 18, | | [facility] | | | | 2019. Check reference [...] [address] | [place] | [phone] | | [facility] | | [address] | | | - LABORATORY | | [...] 0.92 | 0.70 - 1.30 | [facility] | | | | | mg/dL | [facility] | | | | | | MEDICAL | | | | | | CENTER - | | | | | | LABORATORY | | + + + + + + | eGFR if not | >60Comment: GLOMERULAR | >=60 | [facility] | | | | FILTRATION | mL/min/1.73m2 | [facility] | | | TOGOLESE | RATE,ESTIMATED | | MEDICAL | | | | mL/min/1.83q0Bojx than | | CENTER - | | [...] ST. | [address] | [place], [place] | [phone] | | [facility] | | [address] | | | - LABORATORY | | [...] [address] | [place] | [phone] | | [facility] | | [address] | | | - LABORATORY | | [...] [address] | [place] | [phone] | | [facility] | | [address] | | | - LABORATORY | | [...] | | | | ANGELA MARADIAGA MD ([id number]) | | | | | | on [...] | | | | | Patient Address: [address] [place] [address] | | | | | | | [place] [address], | | | | | | + + + +------+---+---+ +---+---+ | | | +---+---+ documented in this encounter
--- OUTSIDE RECORDS SUMMARY | ~2020-04-13 | XMS | Encounter Summary ---
Demographics + + + | Address | [address] | | | [place] [address] | + + + | Home Phone [...] Providers + +------+ + | Care Coding Spec Name | Role | Phone | [...] 2019 | | GASTROENTEROLOGY | [address] [place] [place], [place] | Syndrome | | | | [address] [place] | [address] [place], [place] | | | | | [address] [place], [place] | [address] | | | | | [address] | | | | | | [phone] | | | +--------+ + + + [...] | | | | | | [place] [address] | | | | | | [phone] | | | | | | | | +--------+ + + + + | 05/01/ | Procedure | Cardiology | | | | 2019 | visit | | | | +--------+ + + + + | 05/01/ | Office | Cardiology | Silvia, | | | 2019 | Visit | | PARISA Vernon [address] | | | | | | [place], | | | | | | [place] [address] | | | | | | [phone] | | | | | | | | +--------+ + + + + | 05/21/ | Implant | Cardiology | Daljit Singletary, | Remote Device | | 2019 | Monitor | | [address] [place] | Interrogation | | | | | [place], | (Primary Dx); | | | | | [place] [address] | Pacemaker; | | | | | [phone] | Sinoatrial node | | | | | | dysfunction ([facility]) | | | | | | with symptomatic | | | | | | bradycardia | +--------+ + + + + documented as of this encounter Visit Diagnoses Not on filedocumented in this encounter"
--- OUTSIDE RECORDS SUMMARY | ~2020-04-13 | XMS | Encounter Summary ---
Demographics + + + | Address | [address] | | | [place] [address] | + + + | Home Phone [...] + +------+ + | Care Crime Scene Analyst Name | Role | Phone | [...] | | | | | [address] | | | | | | [place], [place] | | | | | | [address] | | | | | | [phone] | | | +--------+ + + + [...] | | | | | | [place] [address] | | | | | | [phone] | | | | | | | | +--------+ + + + + | 05/01/ | Procedure | Cardiology | | | | 2019 | visit | | | | +--------+ + + + + | 05/01/ | Office | Cardiology | Silvia, | | | 2019 | Visit | | PARISA Vernon W | | | | | | [place], | | | | | | [place] [address] | | | | | | [phone] | | | | | | | | +--------+ + + + + | 05/21/ | Implant | Cardiology | Daljit Singletary, | Remote Device | 2019 | Monitor | | MD [address] [place] | Interrogation | | | | | [place], | (Primary Dx); | | | | | [place] [address] | Pacemaker; | | | | | [phone] | Sinoatrial node | | | | [...]
--- OUTSIDE RECORDS SUMMARY | ~2020-04-13 | XMS | Encounter Summary ---
Demographics + + + | Address | [address] | | | [place] [address] | + + + | Home Phone [...] + +------+ + | Care Director Of First Impressions Name | Role | Phone | + [...] [address] | | | | | [address] [place] | [address] [place] | | | | | [address] | [address] | | | | | [phone] | | | +--------+ + + + [...] | | | | | | [place], | | | | | | [place] [address] | | | | | | [phone] | | | | | | | | +--------+ + + + + | 05/01/ | Procedure | Cardiology | | | | 2019 | visit | | | | +--------+ + + + + | 05/01/ | Office | Cardiology | Silvia, | | | 2019 | Visit | | PARISA Vernon [address] | | | | | | [place], | | | | | | [place] [address] | | | | | | [phone] | | | | | | | | +--------+ + + + + | 05/21/ | Implant | Cardiology | Daljit Singletary, | Remote Device | 2019 | Monitor | | [address] | Interrogation | | | | | [address], | (Primary Dx); | | | | | [place] [address] | Pacemaker; | | | | | [phone] | Sinoatrial node | | | | | | dysfunction (HCC) | | | | | | with symptomatic | | | | | | bradycardia | +--------+ + + + + documented as of this encounter Visit Diagnoses Not on filedocumented in this encounter"
--- OUTSIDE RECORDS SUMMARY | ~2020-04-13 | XMS | Encounter Summary ---
Demographics + + + | Address | [address] | | | [place] [address] | + + + | Home Phone [...] Providers + +------+ + | Care Dental Amalgam Processor Name | Role | Phone | [...] | | Ascending | Silvia | [address] | | | | | aortic | Janeen, PAPER HANGER | [place], | | | | | aneurysm | [address] | [place] [address] | | | | | (HCC) | [place] | Phone: | | | | | Abdominal | [place], | [phone] | | | | | aortic | [place] | Fax: | | | | | aneurysm | [address] | [phone] | | | | | (AAA) | Phone: | | | | | | without | [phone] | | | | | | rupture | Fax: | | | | | | (HCC) | [phone] | | | | | | Procedures [...] | unspecified | MD Martell | [address] | | | | | type ER | [address] | [address] | | | | | FUP | [place] | [place], | | | | | Procedures | [place], [place] | [place] [address] | | | | | FUP - SUW & | [address] | Phone: | | | | | MISHA PT, LAST | Phone: | [phone] | | | | | SEEN | [phone] | Fax: | | | | | 08-24-18 | Fax: | [phone] | | | | | | [phone] | | +--------+ + + + + + Encounter Details +--------+---------+ + + + | Date | Type | Department | Care Team | Description | +--------+---------+ + + + | 01/11/ | Office | [facility] | [place], | Coronary artery | | 2019 | Visit | CARDIOLOGY [address] | PARISA Vernon [address] | disease involving | | | | [place], | [place], | [place] coronary | | | | [place] [address] | [place] [address] | artery of [place] | | | | [phone] | [phone] | heart without angina | | | [...] this encounter Patient Instructions Patient Instructions Christine oRdriguez, Hand Candle Dipper - 01/11/2019 12:45 PM PST 1. You [...] Check-in time: 1. Check in at the [facility]. 2. Do not [...] procedure. 6. Make sure you have a hydraulic lift driver to take you home. Your hydraulic lift driver will also need to sign you [...] hospital line at and ask for nursing injection molding supervisor t o let them know you are cancelling . Blood test: Non-fasting Date Due: same day as CTA Where to go for labs: [facility]- [address] [facility]. CTA of Chest and Abdomen: Date: Check-In [...] of non-critical coronary artery d isease involving [place] coronary artery of [place] heart without angina pectoris, essential h ypertension, [...] Preventative health care Coronary artery disease involving [place] coronary artery of [place] heart without angina pectoris Cannabis abuse, [...] 3RD DOSE, CALL 911 100 tablet 3 Ovid-3 Fatty Acids (SALMON OIL-1000 PO) CAPS, one [...] was found Confirmed by HIREN WINKLER, ANGELA ([id number]) on 01/03/2019 8:10:39 PM LAB RESULTS reviewed [...] the HPI. RESULTS- I reviewed reports from [facility]: Xr Chest Ap Portable Result Date: 01/02/2019 [...] ASSESSMENT: 1. Non-critical Coronary artery disease involving [place] coronary artery of [place] heart wi thout angina pectoris: A. Normal [...] Symptoms with moderate exertion of t he [place] Heart Association functional class. Heart failure stage [...] go back in 3 days t o [place] for an attempt of ablation under general [...] if he has any further problems IChristine Hand Candle Dipper am acting as a scribe on behalf of, and in the pres ence of PARISA Lomas. - Reji Newman 01/11/2019 13:46 I, PARISA Lomas, personally performed the services described in this documentati on, as scribed in my presence and it is both accurate and complete. -PARISA Lomas 01/11/2019 Portions of this chart may have been created with [employer] voice recognition software. Occasi onal wrong-word or [...] W | | | | | | [place], | | | | | | [place] [address] | | | | | | [phone] | | | | | | | | +--------+ + + + + | 05/01/ | Procedure | Cardiology | | | | 2019 | visit | | | | +--------+ + + + + | 05/01/ | Office | Cardiology | Silvia, | | | 2019 | Visit | | PARISA Vernon W | | | | | | [place], | | | | | | [place] [address] | | | | | | [phone] | | | | | | | | +--------+ + + + + | 05/21/ | Implant | Cardiology | Daljit Singletary, | Remote Device | | 2019 | Monitor | | MD [address] [place] | Interrogation | | | | | [place], | (Primary Dx); | | | | | [place] [address] | Pacemaker; | | | | | [phone] | Sinoatrial node | | | | [...] + + | Coronary artery disease involving [place] coronary artery of [place] heart without | | angina pectoris - [...]
--- OUTSIDE RECORDS SUMMARY | ~2020-04-13 | XMS | Encounter Summary ---
Demographics + + + | Address | [address] | | | [place] [address] | + + + | Home Phone [...] Providers + +------+ + | Care Forklift Operator Name | Role | Phone [...] | SLEEP DISORDER [address] | [address] | Dx) | | | | [address] [place] | [place] | | | | | [place] [address] | [address] | | | | | [phone] | | | +--------+---------+ + + + [...] pillows obtained from: [facility] pressure is: 13 cm CPAP download shows [...] to go to [facility] to have them download his memory card. I will readjust his pressure, if necessary. I will call him with the results. He is to work toward wearing his CPAP 100% of the time he is asleep. I will follow up again in 1 month, sooner prn. Fifteen minutes were spent [id number], wi th the majority of time spent [...] | | | | | | [place], | | | | | | [place] [address] | | | | | | [phone] | | | | | | | | +--------+ + + + + | 05/01/ | Procedure | Cardiology | | | | 2019 | visit | | | | +--------+ + + + + | 05/01/ | Office | Cardiology | Silvia, | | | 2019 | Visit | | PARISA Vernon W | | | | | | [place], | | | | | | [place] [address] | | | | | | [phone] | | | | | | | | +--------+ + + + + | 05/21/ | Implant | Cardiology | SunshinecherelleDaljit, | Remote Device | | 2019 | Monitor | | [address] [facility] | Interrogation | | | | | [place], | (Primary Dx); | | | | | [place] [address] | Pacemaker; | | | | | [phone] | Sinoatrial node | | | | [...]
--- OUTSIDE RECORDS SUMMARY | ~2020-04-13 | XMS | Encounter Summary ---
Demographics + + + | Address | [address] | | | [place] [address] | + + + | Home Phone [...] Providers + +------+ + | Care Foundry Finisher Name | Role | Phone | + +------+ + | Kirk French MD | PCP | | + +------+ + Encounter Details +--------+ + + + + | Date | Type | Department | Care Team | Description | +--------+ + + + + | 04/07/ | Hospital | [facility] | Pia Akhtar | Spinal stenosis of | | 2016 | Encounter | MED CTR XRAY [address] | MD [address] | lumbar region | | | | [place] | [address] | | | | | [place] [address] | [place] [address] | | | | | [phone] | [phone] | | | | | | | [...] | | | | | | [place] [address] | | | | | | [phone] | | | | | | | | +--------+ + + + + | 05/01/ | Procedure | Cardiology | | | | 2019 | visit | | | | +--------+ + + + + | 05/01/ | Office | Cardiology | Silvia | | | 2019 | Visit | | Janeen, ORGANISATIONAL PSYCHOLOGIST [address] | | | | | | [place], | | | | | | [place] [address] | | | | | | [phone] | | | | | | | | +--------+ + + + + | 05/21/ | Implant | Cardiology | Daljit Singletary, | Remote Device | | 2020 | Monitor | | [address] [place] | Interrogation | | | | | [place], | (Primary Dx); | | | | | [place] [address] | Pacemaker; | | | | | [phone] | Sinoatrial node | | | | [...]
--- OUTSIDE RECORDS SUMMARY | ~2020-04-13 | XMS | Encounter Summary ---
Demographics + + + | Address | [address] | | | [place] [address] | + + + | Home Phone [...] + +------+ + | Care Front Desk Officer Name | Role | Phone | [...] + | 02/27/ | Telephone | [facility] | [place], | Chest Pain (Patient | | 2013 | | CARDIOLOGY [address] | Janeen, TYING MACHINE OPERATOR LUMBER [address] | having chest pain) | | | | [place], | [place], | | | | | [place] [address] | [place] [address] | | | | | [phone] | [phone] | | | | | | | [...] W | | | | | | [place], | | | | | | [place] [address] | | | | | | [phone] | | | | | | | | +--------+ + + + + | 05/01/ | Procedure | Cardiology | | | | 2019 | visit | | | | +--------+ + + + + | 05/01/ | Office | Cardiology | Silvia, | | | 2019 | Visit | | PARISA Vernon W | | | | | | [place], | | | | | | [place] [address] | | | | | | [phone] | | | | | | | | +--------+ + + + + | 05/21/ | Implant | Cardiology | Daljit Singletary, | Remote Device | | 2019 | Monitor | | [facility] | Interrogation | | | | | [place], | (Primary Dx); | | | | | [place] [address] | Pacemaker; | | | | | [phone] | Sinoatrial node | | | | | | dysfunction (HCC) | | | | | | with symptomatic | | | | | | bradycardia | +--------+ + + + + documented as of this encounter Visit Diagnoses Not on filedocumented in this encounter"
--- OUTSIDE RECORDS SUMMARY | ~2020-04-13 | XMS | Encounter Summary ---
Demographics + + + | Address | [address] | | | [place] [address] | + + + | Home Phone [...] + +------+ + | Care Software Quality Analyst Name | Role | Phone [...] ogy | Abnormal | Kirk Guidry, | Emmnauel Fitzpatrick MD | | | | | weight loss | [address] | [address], | | | | | Anxiety | [address] [place] | [address] | | | | | disorder, | [address] | [place], | | | | | unspecified | [place], [place] | [place] [address] | | | | | Chronic | [address] | Phone: | | | | | pain | Phone: | [phone] | | | | | syndrome | [phone] | Fax: | | | | | Procedures | Fax: | [phone] | | | | | office visit | [phone] | | +--------+--------+ + + + + Encounter Details +--------+---------+ + + + | Date | Type | Department | Care Team | Description | +--------+---------+ + + + | 12/26/ | Office | [facility] | Emmanuel Daniel MD | Functional diarrhea | | 2019 | Visit | GASTROENTEROLOGY | [address], [place] | (Primary Dx); | | | | [address] [place] | [address] [place], [place] | Gastrointestinal | | | | [address] [place], [place] | [address] | hemorrhage | | | | [address] | | associated with | | | | [phone] | | anorectal source; | | | [...] | | | | | | [place] [address] | | | | | | [phone] | | | | | | | | +--------+ + + + + | 05/01/ | Procedure | Cardiology | | | | 2019 | visit | | | | +--------+ + + + + | 05/01/ | Office | Cardiology | Silvia, | | | 2019 | Visit | | PARISA Vernon [address] | | | | | | [place], | | | | | | [place] [address] | | | | | | [phone] | | | | | | | | +--------+ + + + + | 05/21/ | Implant | Cardiology | Daljit Singletary, | Remote Device | | 2019 | Monitor | | [address] [facility] | Interrogation | | | | | [place], | (Primary Dx); | | | | | [place] [address] | Pacemaker; | | | | | [phone] | Sinoatrial node | | | | [...]
--- OUTSIDE RECORDS SUMMARY | ~2020-04-13 | XMS | Encounter Summary ---
Demographics + + + | Address | [address] | | | [place] [address] | + + + | Home Phone [...] Providers + +------+ + | Care Station Worker Name | Role | Phone | + +------+ + | Kirk French MD | PCP | | + +------+ + Encounter Details +--------+ + + + + | Date | Type | Department | Care Team | Description | +--------+ + + + + | 06/19/ | Orders Only | [facility] | Fabrice Hytlon, | Abnormal weight | | 2019 | | SYSTEM GENERIC OP | MD [address] | loss; Anxiety | | | | CONVERSION [address] | [address] [place], [place] | disorder; Chronic | | | | [address] [place], [place] | [address] | pain syndrome; | | | | [address] | | Obesity; Neuralgia | | | | [phone] | | and neuritis, | | | [...] | | | | | | [place] [address] | | | | | | [phone] | | | | | | | | +--------+ + + + + | 05/01/ | Procedure | Cardiology | | | | 2019 | visit | | | | +--------+ + + + + | 05/01/ | Office | Cardiology | Silvia, | | | 2019 | Visit | | PARISA Vernon W | | | | | | [place], | | | | | | [place] [address] | | | | | | [phone] | | | | | | | | +--------+ + + + + | 05/21/ | Implant | Cardiology | Daljit Singletary, | Remote Device | 2019 | Monitor | | [address] | Interrogation | | | | | [place], | (Primary Dx); | | | | | [place] [address] | Pacemaker; | | | | | [phone] | Sinoatrial node | | | | [...]
--- OUTSIDE RECORDS SUMMARY | ~2020-04-13 | XMS | Encounter Summary ---
Demographics + + + | Address | [address] | | | [place] [address] | + + + | Home Phone [...] Team Providers + +------+ + | Care Instrument Calibrator Name | Role | Phone | + [...] 2014 | | CARDIOLOGY [address] | OPERATING ROOM TECHNOLOGIST [address] | edema and chest | | | | [place], | [facility] [place] | pain) | | | | [place] [address] | [address] | | | | | [phone] | | | +--------+ + + + [...] | | | | | | [place] [address] | | | | | | [phone] | | | | | | | | +--------+ + + + + | 05/01/ | Procedure | Cardiology | | | | 2019 | visit | | | | +--------+ + + + + | 05/01/ | Office | Cardiology | Silvia, | | | 2019 | Visit | | [address] | | | | | | [place], | | | | | | [place] [address] | | | | | | [phone] | | | | | | | | +--------+ + + + + | 05/21/ | Implant | Cardiology | Daljit Singletary, | Remote Device | | 2019 | Monitor | | MD Chiquis Oro | Interrogation | | | | | [place], | (Primary Dx); | | | | | [place] [address] | Pacemaker; | | | | | [phone] | Sinoatrial node | | | | | | dysfunction (HCC) | | | | | | with symptomatic | | | | | | bradycardia | +--------+ + + + + documented as of this encounter Visit Diagnoses Not on filedocumented in this encounter"
--- OUTSIDE RECORDS SUMMARY | ~2020-04-13 | XMS | Encounter Summary ---
Demographics + + + | Address | [address] | | | [place] [address] | + + + | Home Phone [...] Team Providers + +------+ + | Care Procedure Analyst Name | Role | Phone | + +------+ + PCP | Unavailable | + +------+ + Encounter Details +--------+ + + + + | Date | Type | Department | Care Team | Description | +--------+ + + + + | 06/12/ | [facility] | [facility] | Hunter Antunez, | | | 2007 - | Encounter | MED CTR ICU [address] | MD [address] | | | | | [place], | [place] | | | 06/15/ | | [place] [address] | [address] | | | 2007 | | [phone] | | | +--------+ + + + [...] W | | | | | | [place], | | | | | | [place] [address] | | | | | | [phone] | | | | | | | | +--------+ + + + + | 05/01/ | Procedure | Cardiology | | | | 2019 | visit | | | | +--------+ + + + + | 05/01/ | Office | Cardiology | Silvia | | | 2019 | Visit | | [address] | | | | | | [place], | | | | | | [place] [address] | | | | | | [phone] | | | | | | | | +--------+ + + + + | 05/21/ | Implant | Cardiology | Daljit Singletary, | Remote Device | 2019 | Monitor | | MD [address] [place] | Interrogation | | | | | [place], | (Primary Dx); | | | | | [place] [address] | Pacemaker; | | | | | [phone] | Sinoatrial node | | | | | | dysfunction (HCC) | | | | | | with symptomatic | | | | | | bradycardia | +--------+ + + + + documented as of this encounter Visit Diagnoses Not on filedocumented in this encounter"
--- OUTSIDE RECORDS SUMMARY | ~2020-04-13 | XMS | Encounter Summary ---
Demographics + + + | Address | [address] | | | [place] [address] | + + + | Home Phone [...] [address] | | | | | [place], | [place], | | | | | [place] [address] | [place] [address] | | | | | [phone] | [phone] | | | | | | | [...] W | | | | | | [place], | | | | | | [place] [address] | | | | | | [phone] | | | | | | | | +--------+ + + + + | 05/01/ | Procedure | Cardiology | | | | 2019 | visit | | | | +--------+ + + + + | 05/01/ | Office | Cardiology | Silvia, | | | 2019 | Visit | | [address] | | | | | | [place], | | | | | | [place] [address] | | | | | | [phone] | | | | | | | | +--------+ + + + + | 05/21/ | Implant | Cardiology | Daljit Singletary, | Remote Device | 2019 | Monitor | | MD Sim [place] | Interrogation | | | | | [place], | (Primary Dx); | | | | | [place] [address] | Pacemaker; | | | | | [phone] | Sinoatrial node | | | | [...] Comment | + + | [facility] | + + + +---------+ + + [...] Comment | + + | [facility] | + + + +---------+ + + [...] Comment | + + | [facility] | + + + +---------+ + + [...]
--- OUTSIDE RECORDS SUMMARY | ~2020-04-13 | XMS | Encounter Summary ---
Demographics + + + | Address | [address] | | | [place] [address] | + + + | Home Phone [...] Providers + +------+ + | Care Personal Lines Advisor Name | Role | Phone | [...] | RN | | | | | [place], | | | | | | [place] [address] | | | | | | [phone] | | | +--------+ + + + [...] W | | | | | | [place], | | | | | | [place] [address] | | | | | | [phone] | | | | | | | | +--------+ + + + + | 05/01/ | Procedure | Cardiology | | | | 2019 | visit | | | | +--------+ + + + + | 05/01/ | Office | Cardiology | Silvia | | | 2019 | Visit | | [address] | | | | | | [place], | | | | | | [place] [address] | | | | | | [phone] | | | | | | | | +--------+ + + + + | 05/21/ | Implant | Cardiology | Daljit Singletary, | Remote Device | | 2019 | Monitor | | MD Sim [place] | Interrogation | | | | | [place], | (Primary Dx); | | | | | [place] [address] | Pacemaker; | | | | | [phone] | Sinoatrial node | | | | | | dysfunction (HCC) | | | | | | with symptomatic | | | | | | bradycardia | +--------+ + + + + documented as of this encounter Visit Diagnoses Not on filedocumented in this encounter"
--- OUTSIDE RECORDS SUMMARY | ~2020-04-13 | XMS | Encounter Summary ---
Demographics + + + | Address | [address] | | | [place] [address] | + + + | Home Phone [...] Team Providers + +------+ + | Care Row Boss Hoeing Name | Role | Phone | + [...] + + | 08/31/ | Refill | [facility] | Kirk French | Medication Refill | | 2018 | | [facility] | MD Brea [address] | | | | | [facility] [address] | | | | | [address] | [place] [address] | | | | | [place], [place] | [phone] | | | | | [address] | | | | | | [phone] | | | +--------+--------+ + + + [...] | | | | | | [place] [address] | | | | | | [phone] | | | | | | | [...] | | | | | | [place] [address] | | | | | | [phone] | | | | | | | | +--------+ + + + + | 05/21/ | Implant | Cardiology | Daljit Singletary, | Remote Device | | 2019 | Monitor | | [facility] | Interrogation | | | | | [place], | (Primary Dx); | | | | | [place] [address] | Pacemaker; | | | | | [phone] | Sinoatrial node | | | | | | dysfunction (HCC) | | | | | | with symptomatic | | | | | | bradycardia | +--------+ + + + + documented as of this encounter Visit Diagnoses Not on filedocumented in this encounter"
--- OUTSIDE RECORDS SUMMARY | ~2020-04-13 | XMS | Encounter Summary ---
Demographics + + + | Address | [address] | | | [place] [address] | + + + | Home Phone [...] + +------+ + | Care Funeral Home Location Manager Name | Role | Phone [...] + | 10/01/ | Office | [facility] | Mary Bradshaw | Injury of left foot, | | 2013 | Visit | CARE [address] | Guy Larkin MD | initial encounter | | | | [place] | [address] | (Primary Dx) | | | | [address] | [place] | | | | | [phone] | [address] | | | | | | | [...] half hours. He states he needs to tack picker hi s spouse. I provided patient with Dr. Bradley's card so he may contact us for results. Patient's best phone number: [phone] Renetta Lockwood RN ary [place]shaw MD - [...] | | | | | | [place] [address] | | | | | | [phone] | | | | | | | | +--------+ + + + + | 05/01/ | Procedure | Cardiology | | | | 2019 | visit | | | | +--------+ + + + + | 05/01/ | Office | Cardiology | Silvia, | | | 2019 | Visit | | PARISA Vernon [address] | | | | | | [place], | | | | | | [place] [address] | | | | | | [phone] | | | | | | | | +--------+ + + + + | 05/21/ | Implant | Cardiology | Daljit Singletary, | Remote Device | | 2019 | Monitor | | MD [facility] | Interrogation | | | | | [place], | (Primary Dx); | | | | | [place] [address] | Pacemaker; | | | | | [phone] | Sinoatrial node | | | | [...] + | MISCELLANEOUS LAB | | | [phone] | + +---------+ + + | MISCELANIOUS LAB | | | [phone] | + +---------+ + + documented in this encounter Visit Diagnoses + + | Diagnosis | + + | Injury of left foot, initial encounter - Primary | + + documented in this encounter
--- OUTSIDE RECORDS SUMMARY | ~2020-04-13 | XMS | Encounter Summary ---
Demographics + + + | Address | [address] | | | [place] [address] | + + + | Home Phone [...] Team Providers + +------+ + | Care Firing Pin Gauger Name | Role | Phone | + +------+ + PCP | Unavailable | + +------+ + Encounter Details +--------+ + + + + | Date | Type | Department | Care Team | Description | +--------+ + + + + | 05/28/ | [facility] | [facility] | Evan Gandara MD | | | 2008 | Encounter | MED CTR LABORATORY | [address] [facility] | | | | | [address] | [place] | | | | | [place] | [address] | | | | | [address] | | | | | | [phone] | | | +--------+ + + + [...] | | | | | | [place] [address] | | | | | | [phone] | | | | | | | [...] | | | | | | [place] [address] | | | | | | [phone] | | | | | | | | +--------+ + + + + | 05/21/ | Implant | Cardiology | Daljit Singletary, | Remote Device | 2019 | Monitor | | MD Sim [facility] | Interrogation | | | | | [place], | (Primary Dx); | | | | | [place] [address] | Pacemaker; | | | | | [phone] | Sinoatrial node | | | | | | dysfunction (HCC) | | | | | | with symptomatic | | | | | | bradycardia | +--------+ + + + + documented as of this encounter Visit Diagnoses Not on filedocumented in this encounter"
--- OUTSIDE RECORDS SUMMARY | ~2020-04-13 | XMS | Encounter Summary ---
Demographics + + + | Address | [address] | | | [place] [address] | + + + | Home Phone [...] Refill | | 2013 | | [facility] | DO [address] | | | | | [address] | [place] | | | | | [place] | [address] | | | | | [address] | | | | | | [phone] | | | +--------+--------+ + + + [...] W | | | | | | [place], | | | | | | [place] [address] | | | | | | [phone] | | | | | | | | +--------+ + + + + | 05/01/ | Procedure | Cardiology | | | | 2019 | visit | | | | +--------+ + + + + | 05/01/ | Office | Cardiology | Silvia, | | | 2019 | Visit | | [address] | | | | | | [place], | | | | | | [place] [address] | | | | | | [phone] | | | | | | | | +--------+ + + + + | 05/21/ | Implant | Cardiology | Daljit Singletary, | Remote Device | | 2019 | Monitor | | [facility] | Interrogation | | | | | [place], | (Primary Dx); | | | | | [place] [address] | Pacemaker; | | | | | [phone] | Sinoatrial node | | | | | | dysfunction (HCC) | | | | | | with symptomatic | | | | | | bradycardia | +--------+ + + + + documented as of this encounter Visit Diagnoses Not on filedocumented in this encounter"
--- OUTSIDE RECORDS SUMMARY | ~2020-04-13 | XMS | Encounter Summary ---
Demographics + + + | Address | [address] | | | [place] [address] | + + + | Home Phone [...] Providers + +------+ + | Care Household Appliance Installer Name | Role | Phone | + +------+ + | Kirk French MD | PCP | | + +------+ + Encounter Details +--------+ + + + + | Date | Type | Department | Care Team | Description | +--------+ + + + + | 12/23/ | Emergency | [facility] | Cristal Alexander, | Chronic neck pain; | | 2015 | | [facility]ICAL [facility]ENTER | DO [address] | Headache(784.0) | | | | EMERGENCY CENTER | [place] [address] | | | | | [address] | [phone] | | | | | [place], [place] | | | | | | [address] | | | | | | [phone] | | | +--------+ + + + [...] + + + +---------+ + + | [place] Fatty | CAPS, one capsule by [...] | | | | | | | #[id number], exp 07/2016 | | | | | [...] | | | | | | [place] [address] | | | | | | [phone] | | | | | | | [...] | | | | | | [place] [address] | | | | | | [phone] | | | | | | | | +--------+ + + + + | 05/21/ | Implant | Cardiology | Daljit Singletary, | Remote Device | | 2019 | Monitor | | [facility] | Interrogation | | | | | [place], | (Primary Dx); | | | | | [place] [address] | Pacemaker; | | | | | [phone] | Sinoatrial node | | | | [...] Conversion - 07/07/2019 5:05 AM PDT PINA [id number] years MaleCT | | CERVICAL SPINE WO [...]
--- OUTSIDE RECORDS SUMMARY | ~2020-04-13 | XMS | Encounter Summary ---
Demographics + + + | Address | [address] | | | [place] [address] | + + + | Home Phone [...] Team Providers + +------+ + | Care Youth Liaison Officer Name | Role | Phone [...] [place] | | | | | [address] [place], [place] | [address] | | | | | [address] | | | | | | [phone] | | | +--------+ + + + [...] | | | | | | [place] [address] | | | | | | [phone] | | | | | | | [...] | | | | | | [place] [id number] | | | | | | [phone] | | | | | | | | +--------+ + + + + | 05/21/ | Implant | Cardiology | Daljit Singletary, | Remote Device | 2019 | Monitor | | [address] [place] | Interrogation | | | | | [place], | (Primary Dx); | | | | | [place] [id number] | Pacemaker; | | | | | [phone] | Sinoatrial node | | | | [...]
--- OUTSIDE RECORDS SUMMARY | ~2020-04-13 | XMS | Encounter Summary ---
Demographics + + + | Address | [address] | | | [place] [address] | + + + | Home Phone [...] Providers + +------+ + | Care Dross Puller Name | Role | Phone | [...] Refill | [facility] | Micheal Amanda, | Medication Refill | | 2013 | | [facility] [place] | DO [address] | | | | | [address] | [place] | | | | | [place] | [address] | | | | | [address] | | | | | | [phone] | | | +--------+--------+ + + + [...] | | | | | | [place] [address] | | | | | | [phone] | | | | | | | [...] | | | | | | [place] [address] | | | | | | [phone] | | | | | | | | +--------+ + + + + | 05/21/ | Implant | Cardiology | Daljit Singletary, | Remote Device | | 2019 | Monitor | | [facility] | Interrogation | | | | | [place] [place], | (Primary Dx); | | | | | [place] [address] | Pacemaker; | | | | | [phone] | Sinoatrial node | | | | | | dysfunction (HCC) | | | | | | with symptomatic | | | | | | bradycardia | +--------+ + + + + documented as of this encounter Visit Diagnoses Not on filedocumented in this encounter"
--- OUTSIDE RECORDS SUMMARY | ~2020-04-13 | XMS | Encounter Summary ---
Demographics + + + | Address | [address] | | | [place] [address] | + + + | Home Phone [...] Providers + +------+ + | Care Client Technologies Analyst Name | Role | Phone | + +------+ + PCP | Unavailable | + +------+ + Encounter Details +--------+ + + + + | Date | Type | Department | Care Team | Description | +--------+ + + + + | 06/03/ | Hospital | [facility] | | | | 2008 | Encounter | MED CTR EMERGENCY | | | | | | [place] [address] | | | | | | [place] | | | | | | [address] | | | | | | [phone] | | | +--------+ + + + [...] | | | | | | [place] [address] | | | | | | [phone] | | | | | | | | +--------+ + + + + | 05/01/ | Procedure | Cardiology | | | | 2019 | visit | | | | +--------+ + + + + | 05/01/ | Office | Cardiology | Silvia, | | | 2019 | Visit | | [address] | | | | | | [place], | | | | | | [place] [address] | | | | | | [phone] | | | | | | | | +--------+ + + + + | 05/21/ | Implant | Cardiology | Daljit Singletary, | Remote Device | 2019 | Monitor | | [address] [place] | Interrogation | | | | | [place], | (Primary Dx); | | | | | [place] [address] | Pacemaker; | | | | | [phone] | Sinoatrial node | | | | | | dysfunction (HCC) | | | | | | with symptomatic | | | | | | bradycardia | +--------+ + + + + documented as of this encounter Visit Diagnoses Not on filedocumented in this encounter"
--- OUTSIDE RECORDS SUMMARY | ~2020-04-13 | XMS | Encounter Summary ---
Demographics + + + | Address | [address] | | | [place] [address] | + + + | Home Phone [...] Team Providers + +------+ + | Care Investment Associate Name | Role | Phone | [...] + + | 08/14/ | Telephone | [facility] | Michael Amanda, | Appointment | | 2012 | | [facility] [address] | DO [address] | | | | | [facility] | [place] | | | | | [place], [place] | [address] | | | | | [address] | | | | | | [phone] | | | +--------+ + + + [...] W | | | | | | [place], | | | | | | [place] [address] | | | | | | [phone] | | | | | | | | +--------+ + + + + | 05/01/ | Procedure | Cardiology | | | | 2019 | visit | | | | +--------+ + + + + | 05/01/ | Office | Cardiology | Silvia, | | | 2019 | Visit | | [address] | | | | | | [place], | | | | | | [place] [address] | | | | | | [phone] | | | | | | | | +--------+ + + + + | 05/21/ | Implant | Cardiology | Daljit Singletary, | Remote Device | 2019 | Monitor | | MD Chiquis [place]ar | Interrogation | | | | | [place], | (Primary Dx); | | | | | [place] [address] | Pacemaker; | | | | | [phone] | Sinoatrial node | | | | | | dysfunction (HCC) | | | | | | with symptomatic | | | | | | bradycardia | +--------+ + + + + documented as of this encounter Visit Diagnoses Not on filedocumented in this encounter"
--- OUTSIDE RECORDS SUMMARY | ~2020-04-13 | XMS | Encounter Summary ---
Demographics + + + | Address | [address] | | | [place] [address] | + + + | Home Phone [...] Providers + +------+ + | Care Filler Shredder Name | Role | Phone [...] | 05/08/ | Telephone | [facility] | Emmanuel Daniel MD | Other | | 2019 | | GASTROENTEROLOGY | [address], [place] | | | | | [address] [place] | [address] [place], [place] | | | | | [address] [place], [place] | [address] | | | | | [address] | | | | | | [phone] | | | +--------+ + + + [...] | | | | | | [place] [address] | | | | | | [phone] | | | | | | | [...] | | | | | | [place] [address] | | | | | | [phone] | | | | | | | | +--------+ + + + + | 05/21/ | Implant | Cardiology | Dlajit Singletary, | Remote Device | 2019 | Monitor | | [address] | Interrogation | | | | | [place], | (Primary Dx); | | | | | [place] [address] | Pacemaker; | | | | | [phone] | Sinoatrial node | | | | | | dysfunction (HCC) | | | | | | with symptomatic | | | | | | bradycardia | +--------+ + + + + documented as of this encounter Visit Diagnoses Not on filedocumented in this encounter"
--- OUTSIDE RECORDS SUMMARY | ~2020-04-13 | XMS | Encounter Summary ---
Demographics + + + | Address | [address] [place] [address] [address] | | | [place] [address] | + + + | Home Phone [...] [place] | | | | | [address] | | + + + + + Care Team Providers + +------+ + | Care Rope Cleaner Name | Role | Phone | + +------+ + | Darion Holden DO | PCP | | + +------+ + Encounter Details +--------+ + + + + | Date | Type | Department | Care Team | Description | +--------+ + + + + | 01/22/ | Transcribe | [facility] | Transcribe | | | 2020 | Orders | [facility] [address] | Encounter, Provider, | | | | | Tremayne Crane Mailcode: | [address] | | | | | [address] [place] | [place] [address] | | | | | [facility], | | | | | | [address] | | | | | | [place], [place] | | | | | | [address] | | | | | | [phone] | | | +--------+ + + + [...]
--- OUTSIDE RECORDS SUMMARY | ~2020-04-13 | XMS | Encounter Summary ---
Demographics + + + | Address | [address] | | | [place] [address] | + + + | Home Phone [...] Providers + +------+ + | Care Mechanical Energy Engineer Name | Role | Phone | [...] + + | 05/26/ | Emergency | [facility]HELLE | Lizbeth Green | Atypical chest pain | | 2013 | | [facility] CTR EMERGENCY | DO Nicole Fink | (Primary Dx); | | | | CENTER [address] | [place] | Anxiety | | | | [place], [place] | [address] | | | | | [address] | | | | | | [phone] | | | +--------+ + + + [...] | | | | | [place], | | | | | | [place] [address] | | | | | | [phone] | | | | | | | | +--------+ + + + + | 05/01/ | Procedure | Cardiology | | | | 2019 | visit | | | | +--------+ + + + + | 05/01/ | Office | Cardiology | Silvia, | | | 2019 | Visit | | [address] [place] [address] | | | | | | [place], | | | | | | [place] [address] | | | | | | [phone] | | | | | | | | +--------+ + + + + | 05/21/ | Implant | Cardiology | Daljit Singletary, | Remote Device | 2019 | Monitor | | MD Sim [place] [place] | Interrogation | | | | | [facility], | (Primary Dx); | | | | | [place] [address] | Pacemaker; | | | | | [phone] | Sinoatrial node | | | | [...] the uneventful IV administration of 80 mL [id number] contrast. Timing of | | contrast bolus [...] + | MISCELLANEOUS LAB | | | [phone] | + +---------+ + + | MISCELANIOUS LAB | | | [phone] | + +---------+ + + Troponin I [...] | | | | | | [employer] | | | | | [...] + | [facility] | [address] | [place] | [phone] | | [facility] | | [address] | | | - LABORATORY | | | | + + + + + | [facility] | [address] | [place] | | | [facility] | | [address] | | | - LABORATORY | | [...] mL/min/1.73m2 | [facility] | | | [facility]ER[facility] | RATE,ESTIMATED | | MEDICAL | | | | mL/min/1.68p9Qlrw than | | CENTER - | | [...] [address] | [place] | [phone] | | [facility] | | [address] | | | - LABORATORY | | | | + + + + + | [facility] | [address] | [place] | | | [facility] | | [address] | | | - LABORATORY | | [...] + | [facility] | [address] | [place] | [phone] | | [facility] | | [address] | | | - LABORATORY | | | | + + + + + | [facility] | [address] | [place], [place] | | | [facility] | | [address] | | | - LABORATORY [...]
--- OUTSIDE RECORDS SUMMARY | ~2020-04-13 | XMS | Encounter Summary ---
Demographics + + + | Address | [address] | | | [place] [address] | + + + | Home Phone [...] Team Providers + +------+ + | Care Optometrist Assistant Name | Role | Phone | [...] | 11/02/ | Telephone | [facility] | Daljit Singletary, | Other | | 2015 | | CARDIOLOGY [address] | MD [address] [place] | | | | | [place], | [place], | | | | | [place] [address] | [place] [address] | | | | | [phone] | [phone] | | | | | | | [...] | | | | | | [place] [address] | | | | | | [phone] | | | | | | | [...] | | | | | | [place] [address] | | | | | | [phone] | | | | | | | | +--------+ + + + + | 05/21/ | Implant | Cardiology | Daljit Singletary, | Remote Device | | 2019 | Monitor | | [address] [facility] | Interrogation | | | | | [facility], | (Primary Dx); | | | | | [place] [address] | Pacemaker; | | | | | [phone] | Sinoatrial node | | | | | | dysfunction (HCC) | | | | | | with symptomatic | | | | | | bradycardia | +--------+ + + + + documented as of this encounter Visit Diagnoses Not on filedocumented in this encounter"
--- OUTSIDE RECORDS SUMMARY | ~2020-04-13 | XMS | Encounter Summary ---
Demographics + + + | Address | [address] | | | [place] [address] | + + + | Home Phone [...] Team Providers + +------+ + | Care Pony Worker Name | Role | Phone | [...] | ER FUP | [address] | [address] | | | | | Procedures | [place], | [place], | | | | | FUP | [place] [address] | [place] [address] | | | | | | Phone: | Phone: | | | | | | [phone] | [phone] | | | | | | Fax: | Fax: | | | | | | [phone] | [phone] | +--------+--------+ + + + + Encounter Details +--------+---------+ + + + | Date | Type | Department | Care Team | Description | +--------+---------+ + + + | 02/11/ | Office | [facility] | [place], | Coronary artery | | 2016 | Visit | CARDIOLOGY [address] | Janeen MAT MACHINE TENDER [address] | disease involving | | | | [place], | [place], | [place] coronary | | | | [place] [address] | [place] [address] | artery of [place] | | | | [phone] | [phone] | heart without angina | | | [...] him. He sleeps on 1 pillow at [facility] without any shortness of breath. Overall, he has been doing well otherwise than the [facility] iety. MEDICAL, SURGICAL, AND PERSONAL HISTORY [...] by mouth every evening 90 tablet 3 [facility] [...] 3RD DOSE, CALL 911 100 tablet 3 [place]-3 Fatty Acids (SALMON OIL-1000 PO) CAPS, one capsule by mouth daily twice daily ONE TOUCH DELICA LANCETS [facility] [...] was found Confirmed by ANGELA MARADIAGA MD ([id number]) on 01/25/2017 6:45:26 AM LAB RESULTS reviewed [...] PLTEX 162 11/05/2016 I reviewed records from [facility] for emergency department visit o n 01/2017 which is summarized in the HPI. Above data and testing is reviewed this visit; testing below is historical data unless othe rwise specified. ASSESSMENT: 1. Essential hypertension with goal blood pressure less than 130/80: A. Today it has been well controlled 110 mmHg. He is in class I of t he [place] [employer] functional class. On physical examination there are no signs of fluid overload. 2. Non-critical Coronary artery disease involving [place] coronary a rtery of [place] heart without angina pectoris: A. Normal [...] ventricular arrhythmia performed by Dr. Gambino at [facility] on 01/30/2013. Patient had spontaneous [...] to go back in 3 days to [place] for an attempt of ablation under general [...] a normal stable device function. Estimated remaining [facility] longevity is 3.5 years.. [...] this chart may have been created with [employer] voice recognition software. Occasi onal wrong-word or [...] | | | | | | [place] [address] | | | | | | [phone] | | | | | | | [...] | | | | | | [place] [address] | | | | | | [phone] | | | | | | | | +--------+ + + + + | 05/21/ | Implant | Cardiology | Daljit Singletary, | Remote Device | | 2019 | Monitor | | [address] | Interrogation | | | | | [place], | (Primary Dx); | | | | | [place] [address] | Pacemaker; | | | | | [phone] | Sinoatrial node | | | | [...]
--- OUTSIDE RECORDS SUMMARY | ~2020-04-13 | XMS | Encounter Summary ---
Demographics + + + | Address | [address] | | | [place] [address] | + + + | Home Phone [...] Providers + +------+ + | Care Data Abstractor Name | Role | Phone | [...] | | CARDIOLOGY [address] | Janeen INCOME TAX AUDITOR [address] | | | | | [place], | [place], | | | | | [place] [address] | [place] [address] | | | | | [phone] | [phone] | | | | | | | [...] | | | | | | [place], | | | | | | [place] [address] | | | | | | [phone] | | | | | | | | +--------+ + + + + | 05/01/ | Procedure | Cardiology | | | | 2019 | visit | | | | +--------+ + + + + | 05/01/ | Office | Cardiology | Silvia, | | | 2019 | Visit | | PARISA [address] | | | | | | [place], | | | | | | [place] [address] | | | | | | [phone] | | | | | | | | +--------+ + + + + | 05/21/ | Implant | Cardiology | Daljit Singletary, | Remote Device | 2019 | Monitor | | MD [place] | Interrogation | | | | | [place], | (Primary Dx); | | | | | [place] [address] | Pacemaker; | | | | | [phone] | Sinoatrial node | | | | | | dysfunction (HCC) | | | | | | with symptomatic | | | | | | bradycardia | +--------+ + + + + documented as of this encounter Visit Diagnoses Not on filedocumented in this encounter"
--- OUTSIDE RECORDS SUMMARY | ~2020-04-13 | XMS | Encounter Summary ---
Demographics + + + | Address | [address] | | | [place] [address] | + + + | Home Phone [...] Providers + +------+ + | Care Pet Food Deboner Name | Role | Phone | + +------+ + | Kirk French MD | PCP | | + +------+ + Encounter Details +--------+---------+ + + + | Date | Type | Department | Care Team | Description | +--------+---------+ + + + | 01/05/ | Surgery | [facility] | Emmanuel Daniel MD | EGD | | 2019 | | MED CTR MP INTRA OP | [address], [place] | | | | | [address] | [address] [place], [place] | | | | | [place], [place] | [address] | | | | | [address] | | | | | | [phone] | | | +--------+---------+ + + + [...] for a few hours. Date Last Reviewed: 09/22/201619998504-5121 [employer] [place] [address]. All righ ts reserved. This information is [...] vomiting, or vomiting blood Date Last Reviewed: 05/22/201619996436-6183 [employer] [address] [place] [address]. All righ ts reserved. This information is [...] You can't be awakened Date Last Reviewed: 09/08/201619992178-2781 [employer]. [address] [place] [address], [place] [address]. All righ ts reserved. This information is [...] + + + +---------+ + + | Larue-3 Fatty | CAPS, one capsule by | [...] | | | | | | [place] [address] | | | | | | [phone] | | | | | | | | +--------+ + + + + | 05/01/ | Procedure | Cardiology | | | | 2019 | visit | | | | +--------+ + + + + | 05/01/ | Office | Cardiology | Silvia, | | | 2019 | Visit | | PARISA Vernon [address] | | | | | | [place], | | | | | | [place] [address] | | | | | | [phone] | | | | | | | | +--------+ + + + + | 05/21/ | Implant | Cardiology | Daljit Singletary, | Remote Device | | 2019 | Monitor | | [address] | Interrogation | | | | | [place], | (Primary Dx); | | | | | [place] [address] | Pacemaker; | | | | | [phone] | Sinoatrial node | | | | [...] [address], | REFERENCE LAB | | [place] [id number] Gore Maker: Miguel Galarza MD, Phone: | THALIARP - KINA | | [phone] | | + + + + + + + + | Performing | Address | City/State/Zipcode | Phone Number | | Organization | | | | + + + + + | REFERENCE LAB | [address] | [place], [place] | [phone] | | [facility] | [facility] | [address] | | + + + + + [...] | REFERENCE LAB | | [place] [id number] Gore Maker: Miguel Galarza MD, Phone: | ARSH CASTANON | | [phone] | | + + + + + + + + | Performing | Address | City/State/Zipcode | Phone Number | | Organization | | | | + + + + + | REFERENCE LAB | [address] [facility] [address] | [place], [place] | [phone] | | ARSH CASTANON | [facility] | [address] | | + + + + + [...] [address] | [address] | [phone] | | [facility] | | [address] | | | - LABORATORY | | [...] [address] | [place] | [phone] | | [facility] | | [address] | | | - LABORATORY | | [...] [address] | [place] | [phone] | | [facility] | | [address] | | | - LABORATORY | | [...] [address] | [place] | [phone] | | [facility] | | [address] | | | - LABORATORY | | [...] [address] | [place] | [phone] | | [facility] | | [address] | | | - LABORATORY | | [...] [address] | [address] | [phone] | | [facility] | | [address] | | | - LABORATORY | | | | + + + + + DAVIAN (01/05/2019 8:36 AM PST) + + | Specimen | + + | | + + + + -+ | Narrative | Performed At | + + -+ | | [facility] | | GastroenterologyPatient Name: Moe Venegas Date: | PROVATION | | 01/05/2019 8:36 AMMRN: [id number] #: [id number] of : | | | 9Admit Type: AmbulatoryAge: 58Room: [facility] 01Gender: MaleNote | | | Status: FinalizedAttending MD: Emmanuel Daniel , [facility] | | Upper GI endoscopyIndications: Diarrhea, Weight | | | lossProviders: Emmanuel Daniel MD, Heidi An, | | | RN, Kim Hicks, City Surveyor, | | | Jarett Barakat MD (Anesthesia [...] physician, the nurse, the anesthesiologist and the perinatal technician | | | in the endoscopy [...] | | Imaging was performed using the [employer]elligent [employer] | | | Endoscopy (FICE) [...] Scope In: 8:43:57 AMScope Out: 8:49:50 AM [facility]. | | | [facility] [address], [address] [place] [address] | | | [phone] | | |Recommendation: | | | - [...] |Scope Out: 8:49:50 AM | | | [facility], [address] [facility], [place], [place] | | | [address] | | + + -+ + +---------+ [...] | PROVATION | | 01/05/2019 8:36 AMMRN: [id number] #: [id number] of : | | | 9Admit Type: AmbulatoryAge: 58Room: [facility] 01Gender: MaleNote | | | Status: FinalizedAttending MD: Emmanuel Daniel , [facility]: | | | ColonoscopyIndications: Clinically significant diarrhea of | | | unexplained origin, Weight lossProviders: | | | Emmanuel Daniel MD, Heidi An RN, Kim | | | Fiorella Hicks, City Surveyor, Jarett P. | | | MD Roshni [...] | | | the anesthesiologist and the perinatal technician in the endoscopy suite. | | [...] AMScope Out: | | | 9:06:28 AM [facility], [address] [place] [address], | | | [place] [address] | | | - Discharge patient to [...] |Scope Out: 9:06:28 AM | | | [facility], [address] [place] [address], [place], [place] | | | [address] | | + + -+ + +---------+ [...] | | | (atherosclerotic heart disease of [place] coronary artery without | | | angina [...] chronic or | | | microscopic colitis. BES:[facility]:C3NR GROSS DESCRIPTION: A. The | | | specimen, labeled "Laura, duodenal biopsy" is received in formalin | | | and consists of seven 0.1-0.5 cm lin fragments. Entirely submitted in | | | (A1). B. The specimen, labeled "[place], right colon" is received | | | in formalin and consists of six 0.2-0.3 cm lin fragments. Entirely | | | submitted in (B1). C. The specimen, labeled "[place], left colon" | | | is received in formalin and consists of six 0.2-0.3 cm lin-pink | | | fragments. Entirely submitted in (C1). am:AMB:portillo PERFORMING | | | LABORATORY: The technical component was performed by [facility] | | | [facility], [address] [place] [address] (Hand Tennis Ball Coverer: | | | Kailey Stafford MD; CLIA# [id number]). Professional interpretation was | | | performed by [facility], [facility], [address] | | | [place] [address] (Hand Tennis Ball Coverer: Ishaan | | | Anthony Dao; [facility]#: [id number]). Diagnostician: Ishaan Fitzpatrick | | | Sylwia [...]
--- OUTSIDE RECORDS SUMMARY | ~2020-04-13 | XMS | Encounter Summary ---
Demographics + + + | Address | [address] | | | [place] [address] | + + + | Home Phone [...] + +------+ + | Care Natural Gas Field Processing Supervisor Name | Role | Phone [...] [address] | | | | | [address] | [place] | | | | | [phone] | [address] | | | | | | [phone] | | | | | | | [...] | | | | | | [place] [address] | | | | | | [phone] | | | | | | | [...] [place], | | | | | | [place] [address] | | | | | | [phone] | | | | | | | | +--------+ + + + + | 05/21/ | Implant | Cardiology | SunshinecherelleDaljit, | Remote Device | | 2019 | Monitor | | [address] [facility] | Interrogation | | | | | [place], | (Primary Dx); | | | | | [place] [address] | Pacemaker; | | | | | [phone] | Sinoatrial node | | | | [...]
--- OUTSIDE RECORDS SUMMARY | ~2020-04-13 | XMS | Encounter Summary ---
Demographics + + + | Address | [address] [place] [address] [address] | | | [place] [address] | + + + | Home Phone [...] [place] | | | | | [address] | | + + + + + Care Team Providers + +------+ + | Care Belt Worker Name | Role | Phone | [...] | | Center at [facility] [address] | MD [address] | | | | | [address] | [place], [place] | | | | | Mailcode: Center | [address] | | | | | [facility] and | [phone] | | | | | [facility] 2 | | | | | | [place], [place] | | | | | | [address] | | | | | | [phone] | | | +--------+ + + + [...]
--- OUTSIDE RECORDS SUMMARY | ~2020-04-13 | XMS | Encounter Summary ---
Demographics + + + | Address | [address] | | | [place] [address] | + + + | Home Phone [...] Team Providers + +------+ + | Care Layout Man Name | Role | Phone | [...] 2019 | | GASTROENTEROLOGY | [address], [place] | | | | | [address] [place] | [address] [place], [place] | | | | | [address] [place], [place] | [address] | | | | | [address] | | | | | | [phone] | | | +--------+ + + + [...] | | | | | | [place] [address] | | | | | | [phone] | | | | | | | | +--------+ + + + + | 05/01/ | Procedure | Cardiology | | | | 2019 | visit | | | | +--------+ + + + + | 05/01/ | Office | Cardiology | [place], | | | 2019 | Visit | | PARISA Vernon [address] | | | | | | [place], | | | | | | [place] [address] | | | | | | [phone] | | | | | | | | +--------+ + + + + | 05/21/ | Implant | Cardiology | Daljit Singletary, | Remote Device | | 2019 | Monitor | | [address] [place] | Interrogation | | | | | [place], | (Primary Dx); | | | | | [place] [address] | Pacemaker; | | | | | [phone] | Sinoatrial node | | | | | | dysfunction ([facility]) | | | | | | with symptomatic | | | | | | bradycardia | +--------+ + + + + documented as of this encounter Visit Diagnoses Not on filedocumented in this encounter"
--- OUTSIDE RECORDS SUMMARY | ~2020-04-13 | XMS | Encounter Summary ---
Demographics + + + | Address | [address] | | | [place] [address] | + + + | Home Phone [...] Team Providers + +------+ + | Care Ophthalmologist Retina Specialist Name | Role | Phone | [...] | | Ascending | [place] | [address] [place] | | | | | aortic | Janeen, CURER ACID DRUM | [place], | | | | | aneurysm | [address] | [place] [address] | | | | | (HCC) | [place] | Phone: | | | | | Abdominal | [place], | [phone] | | | | | aortic | [place] | Fax: | | | | | aneurysm | [address] | [phone] | | | | | (AAA) | Phone: | | | | | | without | [phone] | | | | | | rupture | Fax: | | | | | | (HCC) | [phone] | | | | | | Procedures [...] | unspecified | MD [place] | [address] | | | | | type ER | [address] | [place] [address] | | | | | FUP | [place] | [place], | | | | | Procedures | [place], [place] | [place] [address] | | | | | FUP - SUW & | [address] | Phone: | | | | | MISHA PT, LAST | Phone: | [phone] | | | | | SEEN | [phone] | Fax: | | | | | 08-24-18 | Fax: | [phone] | | | | | | [phone] | | +--------+ + + + + + Encounter Details +--------+---------+ + + + | Date | Type | Department | Care Team | Description | +--------+---------+ + + + | 01/11/ | [facility] | [place], | Coronary artery | | 2019 | Visit | CARDIOLOGY [address] | PARISA [place] [address] | disease involving | | | | [place], | [place], | [place] | | | | [place] [address] | [place] [address] | artery of [place] | | | | [phone] | [phone] | heart without angina | | | [...] encounter Patient Instructions Patient Instructions Christine Rodriguez, Clinical Therapist - 01/11/2019 12:45 PM PST 1. You [...] Check-in time: 1. Check in at the [facility]. 2. Do not [...] procedure. 6. Make sure you have a regional refrigerated cdl truck driver to take you home. Your regional refrigerated cdl truck driver will also need to sign [...] line at and ask for nursing supervisor sterile processing t o let them know you are cancelling . Blood test: Non-fasting Date Due: same day as CTA Where to go for labs: [facility]- [address] [facility]. CTA of Chest and Abdomen: Date: Check-In [...] 3RD DOSE, CALL 911 100 tablet 3 [place]-3 Fatty Acids (SALMON OIL-1000 PO) CAPS, one [...] was found Confirmed by HIREN WINKLER, ANGELA ([id number]) on 01/03/2019 8:10:39 PM LAB RESULTS reviewed [...] ASSESSMENT: 1. Non-critical Coronary artery disease involving [place] coronary artery of [place] heart wi thout angina pectoris: A. Normal [...] a normal left ventricular size with mild ltei ntric left ventricular hypertrophy, LVEF 60%, grade [...] [facility] Facility on 01/30/2013. Patient had spontaneous PVC's from [...] if he has any further problems IChristine Clinical Therapist am acting as a scribe on behalf of, and in the pres ence of PARISA Lomas. - Reji Newman 01/11/2019 13:46 I, PARISA Lomas, personally performed the services described in this documentati on, as scribed in my presence and it is both accurate and complete. -PARISA Lomas 01/11/2019 Portions of this chart may have been created with [employer] voice recognition software. Occasi onal wrong-word or [...] W | | | | | | [place], | | | | | | [place] [address] | | | | | | [phone] | | | | | | | | +--------+ + + + + | 05/01/ | Procedure | Cardiology | | | | 2019 | visit | | | | +--------+ + + + + | 05/01/ | Office | Cardiology | Silvia, | | | 2019 | Visit | | PARISA [address] | | | | | | [place], | | | | | | [place] [address] | | | | | | [phone] | | | | | | | | +--------+ + + + + | 05/21/ | Implant | Cardiology | Daljit Singletary, | Remote Device | | 2019 | Monitor | | MD [address] [place] | Interrogation | | | | | [place], | (Primary Dx); | | | | | [place] [address] | Pacemaker; | | | | | [phone] | Sinoatrial node | | | | [...]
--- OUTSIDE RECORDS SUMMARY | ~2020-04-13 | XMS | Encounter Summary ---
Demographics + + + | Address | [address] | | | [place] [address] | + + + | Home Phone [...] Providers + +------+ + | Care Hot Metal Crane Operator Name | Role | Phone [...] + + | 12/14/ | Telephone | [facility] | Emmanuel Daniel MD | Follow-up, Office | | 2019 | | GASTROENTEROLOGY | [address], [place] | Visit (wants to | | | | [address] [place] | [address] [place] | cancel his office | | | | [address] [place] | [address] | appointment today) | | | | [address] | | | | | | [phone] | | | +--------+ + + + [...] | | | | | | [place] [address] | | | | | | [phone] | | | | | | | | +--------+ + + + + | 05/01/ | Procedure | Cardiology | | | | 2019 | visit | | | | +--------+ + + + + | 05/01/ | Office | Cardiology | Silvia, | | | 2019 | Visit | | PARISA Vernon [address] | | | | | | [place], | | | | | | [place] [address] | | | | | | [phone] | | | | | | | | +--------+ + + + + | 05/21/ | Implant | Cardiology | Daljit Singletary, | Remote Device | | 2019 | Monitor | | [address] | Interrogation | | | | | [place], | (Primary Dx); | | | | | [place] [address] | Pacemaker; | | | | | [phone] | Sinoatrial node | | | | | | dysfunction (HCC) | | | | | | with symptomatic | | | | | | bradycardia | +--------+ + + + + documented as of this encounter Visit Diagnoses Not on filedocumented in this encounter"
--- OUTSIDE RECORDS SUMMARY | ~2020-04-13 | XMS | Encounter Summary ---
Demographics + + + | Address | [address] | | | [place] [address] | + + + | Home Phone [...] syndrome, cervical | | | | [place], [place] | | region; Cervicalgia | | | | [address] | (Fax) | | | | | [phone] | | | +--------+ + + + [...] + + + +---------+ + + | Dover-3 Fatty | CAPS, one capsule by | [...] 1147 Date of Service: 05/11/141145 Status: Signed Chain Puller: Christine Mcgraw Report called to Brittany morejon [...] | | | | | | [place] [address] | | | | | | [phone] | | | | | | | [...] | | | | | | [place] [address] | | | | | | [phone] | | | | | | | | +--------+ + + + + | 05/21/ | Implant | Cardiology | Daljit Singletary, | Remote Device | 2019 | Monitor | | MD [address] [place] | Interrogation | | | | | [place], | (Primary Dx); | | | | | [place] [address] | Pacemaker; | | | | | [phone] | Sinoatrial node | | | | [...]
--- OUTSIDE RECORDS SUMMARY | ~2020-04-13 | XMS | Encounter Summary ---
Demographics + + + | Address | [address] | | | [place] [address] | + + + | Home Phone [...] Providers + +------+ + | Care Senior Quality Methods Specialist Name | Role | Phone | + +------+ + | Kirk French MD | PCP | | + +------+ + Encounter Details +--------+ + + + + | Date | Type | Department | Care Team | Description | +--------+ + + + + | 06/03/ | Hospital | [facility] | Conversion | Back pain, | | 2014 | Encounter | CONVERSION DEP [address] | Transaction, | unspecified location | | | | [address] | Provider Unknown | | | | | [place], [place] | [phone] | | | | | [address] | (Fax) | | | | | [phone] | | | +--------+ + + + [...] + + + +---------+ + + | Hiram-3 Fatty | CAPS, one capsule by | [...] | | | | | | | #[id number], exp 07/2016 | | | | | [...] | | | | | | [place] [address] | | | | | | [phone] | | | | | | | | +--------+ + + + + | 05/01/ | Procedure | Cardiology | | | | 2019 | visit | | | | +--------+ + + + + | 05/01/ | Office | Cardiology | Silvia, | | | 2019 | Visit | | PARISA Vernon [address] | | | | | | [place], | | | | | | [place] [address] | | | | | | [phone] | | | | | | | | +--------+ + + + + | 05/21/ | Implant | Cardiology | Daljit Singletary, | Remote Device | | 2019 | Monitor | | [address] [facility] | Interrogation | | | | | [place], | (Primary Dx); | | | | | [place] [address] | Pacemaker; | | | | | [phone] | Sinoatrial node | | | | [...]
--- OUTSIDE RECORDS SUMMARY | ~2020-04-13 | XMS | Encounter Summary ---
Demographics + + + | Address | [address] | | | [place] [address] | + + + | Home Phone [...] + +------+ + | Care Loss Prevention Detective Name | Role | Phone | [...] 2017 | | GASTROENTEROLOGY | [address], [place] | colon Rescheduled to | | | | [address] [place] | [address] [place] | December 24 due to | | | | [address] [place] | [address] | illness) | | | | [address] | | | | | | [phone] | | | +--------+ + + + [...] | | | | | | [place] [address] | | | | | | [phone] | | | | | | | | +--------+ + + + + | 05/01/ | Procedure | Cardiology | | | | 2019 | visit | | | | +--------+ + + + + | 05/01/ | Office | Cardiology | Silvia, | | | 2019 | Visit | | PARISA [place] [address] | | | | | | [place], | | | | | | [place] [address] | | | | | | [phone] | | | | | | | | +--------+ + + + + | 05/21/ | Implant | Cardiology | Daljit Singletary, | Remote Device | | 2019 | Monitor | | [address] | Interrogation | | | | | [place], | (Primary Dx); | | | | | [place] [address] | Pacemaker; | | | | | [phone] | Sinoatrial node | | | | | | dysfunction (HCC) | | | | | | with symptomatic | | | | | | bradycardia | +--------+ + + + + documented as of this encounter Visit Diagnoses Not on filedocumented in this encounter"
--- OUTSIDE RECORDS SUMMARY | ~2020-04-13 | XMS | Encounter Summary ---
Demographics + + + | Address | [address] | | | [place] [address] | + + + | Home Phone [...] + + + + | 09/08/ | [facility] | [facility] | Naresh Mckeon | | | 1998 | Encounter | MED CTR SLEEP | MD Chaya [address] | | | | | CENTER [address] | [place] | | | | | [place] | [place] [address] | | | | | [address] | [phone] | | | | | [phone] | | | +--------+ + + + [...] | | | | | | [place] [address] | | | | | | [phone] | | | | | | | [...] | | | | | | [place] [address] | | | | | | [phone] | | | | | | | | +--------+ + + + + | 05/21/ | Implant | Cardiology | Daljit Singletary, | Remote Device | 2019 | Monitor | | MD [address] [place] | Interrogation | | | | | [place], | (Primary Dx); | | | | | [place] [address] | Pacemaker; | | | | | [phone] | Sinoatrial node | | | | | | dysfunction (HCC) | | | | | | with symptomatic | | | | | | bradycardia | +--------+ + + + + documented as of this encounter Visit Diagnoses Not on filedocumented in this encounter"
--- OUTSIDE RECORDS SUMMARY | ~2020-04-13 | XMS | Encounter Summary ---
Demographics + + + | Address | [address] | | | [place] [address] | + + + | Home Phone [...] Team Providers + +------+ + | Care Knit Goods Washer Name | Role | Phone | [...] 2019 | | GASTROENTEROLOGY | [address], [place] | | | | | [address] [place] | [address] [place], [place] | | | | | 210 [place], [place] | [address] | | | | | [address] | | | | | | [phone] | | | +--------+ + + + [...] | | | | | | [place] [address] | | | | | | [phone] | | | | | | | [...] | | | | | | [place] [address] | | | | | | [phone] | | | | | | | | +--------+ + + + + | 05/21/ | Implant | Cardiology | Daljit Singletary, | Remote Device | | 2019 | Monitor | | [facility] | Interrogation | | | | | [place], | (Primary Dx); | | | | | [place] [address] | Pacemaker; | | | | | [phone] | Sinoatrial node | | | | | | dysfunction (HCC) | | | | | | with symptomatic | | | | | | bradycardia | +--------+ + + + + documented as of this encounter Visit Diagnoses Not on filedocumented in this encounter"
--- OUTSIDE RECORDS SUMMARY | ~2020-04-13 | XMS | Encounter Summary ---
Demographics + + + | Address | [address] | | | [place] [address] | + + + | Home Phone [...] Team Providers + +------+ + | Care Kennel Hand Name | Role | Phone | [...] | CARDIOLOGY [address] | [address] | Interrogation | | | | [place], | [place], | (Primary Dx); | | | | [place] [address] | [place] [address] | Pacemaker; | | | | [phone] | [phone] | Sinoatrial node | | | | [...] | | | | | | [place] [address] | | | | | | [phone] | | | | | | | | +--------+ + + + + | 05/01/ | Procedure | Cardiology | | | | 2019 | visit | | | | +--------+ + + + + | 05/01/ | Office | Cardiology | [place]via, | | | 2019 | Visit | | [place] [address] | | | | | | [place], | | | | | | [place] [address] | | | | | | [phone] | | | | | | | | +--------+ + + + + | 05/21/ | Implant | Cardiology | Daljit Singletary, | Remote Device | | 2019 | Monitor | | [address] [place] | Interrogation | | | | | [place], | (Primary Dx); | | | | | [place] [address] | Pacemaker; | | | | | [phone] | Sinoatrial node | | | | [...] remote PDF scanned into | | | [facility] for remote interrogation results. Data [...]
--- OUTSIDE RECORDS SUMMARY | ~2020-04-13 | XMS | Encounter Summary ---
Demographics + + + | Address | [address] | | | [place] [address] | + + + | Home Phone [...] Team Providers + +------+ + | Care Snubber Name | Role | Phone | + [...] + + | 06/26/ | Office | [facility] | SeminoleJacek, | Diplopia (Primary | | 2012 | Visit | [facility] | [address] | Dx); Symptomatic | | | | [address] | [place] | PVCs; Hypertension | | | | [place], [place] | [address] | | | | | [address] | | | | | | [phone] | | | +--------+---------+ + + + [...] Double vision will affect your ability to bread wrapper distance. This means it will be harder [...] or, difficulty with vision, speech or walking [address] [place] [address]. All rights reserve d. This information is [...] from his pain clinic visit in the [facility] on Wednesday or he developed double [...] double vision. He was evaluated by Dr Fillmore and had a normal eye exam, nor [...] tablet by mouth Daily. 30 tablet 6 [place]-3 Fatty Acids (SALMON OIL-1000 PO) CAPS, one [...] | | | | | | [place] [address] | | | | | | [phone] | | | | | | | | +--------+ + + + + | 05/01/ | Procedure | Cardiology | | | 2019 | visit | | | | +--------+ + + + + | 05/01/ | Office | Cardiology | Silvia, | | | 2019 | Visit | | [place] [address] | | | | | | [place], | | | | | | [place] [address] | | | | | | [phone] | | | | | | | | +--------+ + + + + | 05/21/ | Implant | Cardiology | Daljit Singletary, | Remote Device | 2019 | Monitor | | [place] [facility] | Interrogation | | | | | [place], | (Primary Dx); | | | | | [place] [address] | Pacemaker; | | | | | [phone] | Sinoatrial node | | | | [...] + | [facility] | [address] | [place] | [phone] | | [facility] | | [address] | | | - LABORATORY | | | | + + + + + | [facility] | [address] | [place] | | | [facility] | | [address] | | | - LABORATORY [...] + | [facility] | [address] | [place] | [phone] | | [facility] | | [address] | | | - LABORATORY | | | | + + + + + | [facility] | [address] | [place], [place] | | | [facility] | | [address], [place] | | | - LABORATORY | [...] + | [facility] | [address] | [place] | [phone] | | [facility] | | [address] | | | - LABORATORY | | | | + + + + + | [facility] | [address] | [place] | | | [facility] | | [id number] [place] [address] | | | - LABORATORY | | | | + + + + + documented in this encounter Visit Diagnoses + + | Diagnosis | + + | Diplopia - Primary | + + | Symptomatic PVCs Other premature beats | + + | Hypertension Unspecified essential hypertension | + + documented in this encounter
--- OUTSIDE RECORDS SUMMARY | ~2020-04-13 | XMS | Encounter Summary ---
Demographics + + + | Address | [address] | | | [place] [address] | + + + | Home Phone [...] + +------+ + | Care Contact Lens Assistant Name | Role | Phone | [...] CARDIOLOGY [address] | MD [address] | Interrogation | | | | [place], | [place], | (Primary Dx); | | | | [place] [address] | [place] [address] | Pacemaker; | | | | [phone] | [phone] | Sinoatrial node | | | | [...] | | | | | | [place] [address] | | | | | | [phone] | | | | | | | | +--------+ + + + + | 05/01/ | Procedure | Cardiology | | | | 2019 | visit | | | | +--------+ + + + + | 05/01/ | Office | Cardiology | [place]via, | | | 2019 | Visit | | [place] [address] | | | | | | [place], | | | | | | [place] [address] | | | | | | [phone] | | | | | | | | +--------+ + + + + | 05/21/ | Implant | Cardiology | Daljit Singletary, | Remote Device | 2019 | Monitor | | MD Sim [facility] | Interrogation | | | | | [place], | (Primary Dx); | | | | | [place] [address] | Pacemaker; | | | | | [phone] | Sinoatrial node | | | | [...] remote PDF scanned into | | | [facility] for remote interrogation results. [...]
--- OUTSIDE RECORDS SUMMARY | ~2020-04-13 | XMS | Encounter Summary ---
Demographics + + + | Address | [address] | | | [place] [address] | + + + | Home Phone [...] Providers + +------+ + | Care Steam Tender Name | Role | Phone | [...] + + | 01/25/ | Office | [facility] | Daljit Singletary, | Other chest pain | | 2012 | Visit | CARDIOLOGY [address] | [address] | (Primary Dx); PVC's | | | | [place], | [place], | (premature | | | | [place] [address] | [place] [address] | ventricular | | | | [phone] | [phone] | contractions) | | | | | [...] note, lorraine painting has appointment to see automation controls specialist for PVCs ablations consultation on January [...] tablet Take 1,000 mg by mouth Daily. [place]-3 Fatty Acids (SALMON OIL-1000 PO) CAPS, [...] tablet Take 1,000 mg by mouth Daily. [place]-3 Fatty Acids (SALMON OIL-1000 PO) CAPS, [...] | | | | | | [place] [address] | | | | | | [phone] | | | | | | | | +--------+ + + + + | 05/01/ | Procedure | Cardiology | | | | 2019 | visit | | | | +--------+ + + + + | 05/01/ | Office | Cardiology | Silvia | | | 2019 | Visit | | Janeen, STRAP MAKER [address] | | | | | | [place], | | | | | | [place] [address] | | | | | | [phone] | | | | | | | | +--------+ + + + + | 05/21/ | Implant | Cardiology | Daljit Singletary, | Remote Device | | 2020 | Monitor | | [address] [place] | Interrogation | | | | | [place], | (Primary Dx); | | | | | [place] [address] | Pacemaker; | | | | | [phone] | Sinoatrial node | | | | [...]
--- OUTSIDE RECORDS SUMMARY | ~2020-04-13 | XMS | Encounter Summary ---
Demographics + + + | Address | [address] | | | [place] [address] | + + + | Home Phone [...] Providers + +------+ + | Care News Commentator Name | Role | Phone | + [...] loss | [address] | [address], | | | | | Anxiety | [address] [place] | [place] [address] | | | | | disorder, | [address] | [place], | | | | | unspecified | [place], [place] | [place] [address] | | | | | Chronic | [address] | Phone: | | | | | pain | Phone: | [phone] | | | | | syndrome | [phone] | Fax: | | | | | Procedures | Fax: | [phone] | | | | | office visit | [phone] | | +--------+--------+ + + + + Encounter Details +--------+---------+ + + + | Date | Type | Department | Care Team | Description | +--------+---------+ + + + | 12/26/ | Office | [facility] | Emmanuel Daniel MD | Functional diarrhea | | 2019 | Visit | GASTROENTEROLOGY | [address], [place] | (Primary Dx); | | | | [address] [place] | [address] [place], [place] | Gastrointestinal | | | | [address] [place], [place] | [address] | hemorrhage | | | | [address] | | associated with | | | | [phone] | | anorectal source; | | | [...] | | | | | | [place] [address] | | | | | | [phone] | | | | | | | | +--------+ + + + + | 05/01/ | Procedure | Cardiology | | | | 2019 | visit | | | | +--------+ + + + + | 05/01/ | Office | Cardiology | iSlvia, | | | 2019 | Visit | | [place] [address] | | | | | | [place], | | | | | | [place] [address] | | | | | | [phone] | | | | | | | | +--------+ + + + + | 05/21/ | Implant | Cardiology | Daljit Singletary, | Remote Device | | 2019 | Monitor | | [facility] | Interrogation | | | | | [place], | (Primary Dx); | | | | | [place] [address] | Pacemaker; | | | | | [phone] | Sinoatrial node | | | | [...]
--- OUTSIDE RECORDS SUMMARY | ~2020-04-13 | XMS | Encounter Summary ---
Demographics + + + | Address | [address] | | | [place] [address] | + + + | Home Phone [...] Providers + +------+ + | Care Life Insurance Agent Name | Role | Phone [...] 2012 | | CARDIOLOGY [address] | SEWER LINE REPAIRER [address] [place] | | | | | [place], | [place], [place] | | | | | [place] [address] | [address] | | | | | [phone] | | | +--------+ + + + [...] | | | | | | [place] [address] | | | | | | [phone] | | | | | | | [...] | | | | | | [place] [address] | | | | | | [phone] | | | | | | | | +--------+ + + + + | 05/21/ | Implant | Cardiology | Daljit Singletary, | Remote Device | 2019 | Monitor | | [address] [place] | Interrogation | | | | | [place], | (Primary Dx); | | | | | [place] [address] | Pacemaker; | | | | | [phone] | Sinoatrial node | | | | [...] | | [facility] | | [address], [facility] | | | - LABORATORY | [...]
--- OUTSIDE RECORDS SUMMARY | ~2020-04-13 | XMS | Encounter Summary ---
Demographics + + + | Address | [address] | | | [place] [address] | + + + | Home Phone [...] Providers + +------+ + | Care Bag Bleacher Name | Role | Phone | [...] | | CARDIOLOGY [address] | [address] [place] | | | | | [place], | [place], | | | | | [place] [address] | [place] [address] | | | | | [phone] | [phone] | | | | | | | [...] | | | | | | [place], | | | | | | [place] [address] | | | | | | [phone] | | | | | | | | +--------+ + + + + | 05/01/ | Procedure | Cardiology | | | | 2019 | visit | | | | +--------+ + + + + | 05/01/ | Office | Cardiology | Silvia, | | | 2019 | Visit | | [place] [address] | | | | | | [place], | | | | | | [place] [address] | | | | | | [phone] | | | | | | | | +--------+ + + + + | 05/21/ | Implant | Cardiology | Daljit Singletary, | Remote Device | | 2019 | Monitor | | [facility] | Interrogation | | | | | [place], | (Primary Dx); | | | | | [place] [address] | Pacemaker; | | | | | [phone] | Sinoatrial node | | | | | | dysfunction (HCC) | | | | | | with symptomatic | | | | | | bradycardia | +--------+ + + + + documented as of this encounter Visit Diagnoses Not on filedocumented in this encounter"
--- OUTSIDE RECORDS SUMMARY | ~2020-04-13 | XMS | Encounter Summary ---
Demographics + + + | Address | [address] | | | [place] [address] | + + + | Home Phone [...] + +------+ + | Care Provider Relations Rep Name | Role | Phone [...] + | 02/16/ | Telephone | [facility] | [place]via, | Other (concerned | | 2012 | | CARDIOLOGY [address] | [place] [address] | about palpitations) | | | | [place], | [place], | | | | | [place] [address] | [place] [address] | | | | | [phone] | [phone] | | | | | | | [...] W | | | | | | [place], | | | | | | [place] [address] | | | | | | [phone] | | | | | | | | +--------+ + + + + | 05/01/ | Procedure | Cardiology | | | | 2019 | visit | | | | +--------+ + + + + | 05/01/ | Office | Cardiology | Silvia, | | | 2019 | Visit | | [place] [address] | | | | | | [place], | | | | | | [place] [address] | | | | | | [phone] | | | | | | | | +--------+ + + + + | 05/21/ | Implant | Cardiology | Daljit Singletary, | Remote Device | | 2019 | Monitor | | [facility] | Interrogation | | | | | [place], | (Primary Dx); | | | | | [place] [address] | Pacemaker; | | | | | [phone] | Sinoatrial node | | | | | | dysfunction (HCC) | | | | | | with symptomatic | | | | | | bradycardia | +--------+ + + + + documented as of this encounter Visit Diagnoses Not on filedocumented in this encounter"
--- OUTSIDE RECORDS SUMMARY | ~2020-04-13 | XMS | Encounter Summary ---
Demographics + + + | Address | [address] | | | [place] [address] | + + + | Home Phone [...] Providers + +------+ + | Care Bilingual Sales Representative Name | Role | Phone [...] + | 06/24/ | Telephone | [facility] | Daljit Singletary, | Lab Order | | 2017 | | CARDIOLOGY [address] | MD [address] [place] | | | | | [place], | [place], | | | | | [place] [address] | [place] [address] | | | | | [phone] | | | | | | | [...] | | | | | | [place] [address] | | | | | | [phone] | | | | | | | | +--------+ + + + + | 05/01/ | Procedure | Cardiology | | | | 2019 | visit | | | | +--------+ + + + + | 05/01/ | Office | Cardiology | Silvia, | | | 2019 | Visit | | [place] [address] | | | | | | [place], | | | | | | [place] [address] | | | | | | [phone] | | | | | | | | +--------+ + + + + | 05/21/ | Implant | Cardiology | Daljit Singletary, | Remote Device | | 2019 | Monitor | | MD [address] [place] | Interrogation | | | | | [place], | (Primary Dx); | | | | | [place] [address] | Pacemaker; | | | | | [phone] | Sinoatrial node | | | | [...] 06/24/2018, Expires: | | | | | absentee-shawnee coronary | 06/24/2019 | | | | | artery of absentee-shawnee | | | | | | heart without angina | | | | | | pectoris | | | | | | Hyperlipidemia, | | | | | | mixed | | + +------+--------+ + + documented as of this encounter Visit Diagnoses + + | Diagnosis | + + | Coronary artery disease involving absentee-shawnee coronary artery of absentee-shawnee heart without | | angina pectoris - Primary | + + | Hyperlipidemia, mixed Mixed hyperlipidemia | + + documented in this encounter"
--- OUTSIDE RECORDS SUMMARY | ~2020-04-13 | XMS | Encounter Summary ---
Demographics + + + | Address | [address] | | | [place] [address] | + + + | Home Phone [...] Providers + +------+ + | Care Fish Icer Name | Role | Phone | [...] | | | DDD | Scotty C, ENGINEER FIRST ASSISTANT | [facility] | | | | | (degenerativ | [address] | [facility] | | | | | e disc | [place] | MEDICAL | | | | | disease), | [address] | CENTER [address] | | | | | lumbar | B | [place] | | | | | Chronic | [place], [place] | [place], | | | | | left-sided | [address] | [place] [address] | | | | | low back | Phone: | Phone: | | | | | pain with | [phone] | [phone] | | | | | left-sided | Fax: | Fax: | | | | | sciatica | [phone] | [phone] | | | | | History of [...] | | | DDD | Scotty C, ENGINEER FIRST ASSISTANT | [address] [place] | | | | | (degenerativ | [address] | [place], | | | | | e disc | [place] | [place] [address] | | | | | disease), | DRIVE [address] | Phone: | | | | | lumbar | B | [phone] | | | | | Chronic | [place], [place] | Fax: | | | | | left-sided | [address] | [phone] | | | | | low back | Phone: | | | | | | pain with | [phone] | | | | | | left-sided | Fax: | | | | | | sciatica | [phone] | | | | | | History [...] | MED [facility] [address] | ENGINEER FIRST ASSISTANT [address] [facility] | disc disease), | | | | [place], | [address] | lumbar; Chronic | | | | [place] [address] | [place] [address] | left-sided low back | | | | [phone] | [phone] | pain with left-sided | | | [...] + + + +---------+ + + | [place]-3 Fatty | CAPS, one capsule by | [...] W | | | | | | [place], | | | | | | [place] [address] | | | | | | [phone] | | | | | | | | +--------+ + + + + | 05/01/ | Procedure | Cardiology | | | | 2019 | visit | | | | +--------+ + + + + | 05/01/ | Office | Cardiology | Silvia, | | | 2019 | Visit | | [place] W | | | | | | [place], | | | | | | [place] [address] | | | | | | [phone] | | | | | | | | +--------+ + + + + | 05/21/ | Implant | Cardiology | Daljit Singletary, | Remote Device | | 2020 | Monitor | | [address] [place] | Interrogation | | | | | [place], | (Primary Dx); | | | | | [place] [address] | Pacemaker; | | | | | [phone] | Sinoatrial node | | | | [...]
--- OUTSIDE RECORDS SUMMARY | ~2020-04-13 | XMS | Encounter Summary ---
Demographics + + + | Address | [address] | | | [place] [address] | + + + | Home Phone [...] Providers + +------+ + | Care Outside Event Sales Specialist Name | Role | Phone [...] | Palpitations | [address] | [address] [place] | | | | | Procedures | [address] | [address] [place] | | | | | ECHO | [place], | [place], [place] | | | | | Complete | [place] [address] | [address] | | | | | | Phone: | Phone: | | | | | | [phone] | [phone] | | | | | | Fax: | Fax: | | | | | | [phone] | [phone] | +--------+--------+ + + + + Encounter Details +--------+ + + + + | Date | Type | Department | Care Team | Description | +--------+ + + + + | 12/30/ | Hospital | [facility] | TimmyshaistateshaShaistatimmy, | Palpitations | | 2012 - | Encounter | MED CTR XRAY [address] | MD [address] [place] | | | | | [place] | [address], | | | 01/01/ | | [place] [address] | [place] [address] | | | 2012 | | [phone] | [phone] | | | | | | | [...] + + + +---------+ + + | [place]-3 Fatty | CAPS, one capsule by | [...] | | | | | [place], | | | | | | [place] [address] | | | | | | [phone] | | | | | | | | +--------+ + + + + | 05/01/ | Procedure | Cardiology | | | | 2019 | visit | | | | +--------+ + + + + | 05/01/ | Office | Cardiology | Silvia | | | 2019 | Visit | | [place] [address] | | | | | | [place], | | | | | | [place] [address] | | | | | | [phone] | | | | | | | | +--------+ + + + + | 05/21/ | Implant | Cardiology | Daljit Singletary, | Remote Device | 2019 | Monitor | | MD [address] [place] | Interrogation | | | | | [place], | (Primary Dx); | | | | | [place] [address] | Pacemaker; | | | | | [phone] | Sinoatrial node | | | | [...] [facility] Diagnostic Imaging | [place] | | Department [facility] | [facility] | | [ rep ct [address]] [ rep [facility] | | st zip] Signed | - IMAGING | | | | | Patient Name: MOE GAY | | | Physician: MIGUELINA : 1960 Age: 52 Sex: M Unit | | | #: [id number] Exam Date: 12/30/12 Location: | | | [facility] [place] Report #: [id number] Page: | | | %(RAD)RES..mtdd.print.filter("pg") of %(RAD) | | | RES..mtdd.print.filter("tpg") | | | | | | Accession Number: [id number] | | | E C H O C A R D I O G R A P H Y R E P O R T | | | HEIGHT: 76" WEIGHT: 270# | | | BENCH PRESS OPERATOR: JAMEEL REFERRING DR: TIMMY DRAKE DR: [...] | | | Transcribed Date/Time: 12/30/2012 16:34 Ranch Manager: | | | <<Signature on File>> | | | Daljit | | | MD [facility] FASE01/02/13 0955 <Electronically signed by | | | Daljit Singletary MD, FAC, FACP, FASNanette, FASRAUL> Daljit | | | MD Gemini [facility] ADELINE 12/30/12 1608 Ranch Manager: Jessica | | | Soictlcjrxmdr08/08/13 1634 Daljit Singletary MD [facility] | | | FASNanette | | + + + + + + + + | Performing | Address | City/State/Zipcode | Phone Number | | Organization | | | | + + + + + | [facility] | [address] | [place] | [phone] | | [facility] | | [address] | | | - IMAGING | | | | + + + + + documented in this encounter Visit Diagnoses + + | Diagnosis | + + | Palpitations | + + documented in this encounter
--- OUTSIDE RECORDS SUMMARY | ~2020-04-13 | XMS | Encounter Summary ---
Demographics + + + | Address | [address] | | | [place] [address] | + + + | Home Phone [...] Team Providers + +------+ + | Care Managed Services Consultant Name | Role | Phone | [...] W | reprogramming/check | | | | [place], | [address] [place] | DO NOT DELETE | | | | [place] [address] | [place] [address] | (Primary Dx); | | | | [phone] | [phone] | Pacemaker - | | | | [...] | | | | | | [place] [address] | | | | | | [phone] | | | | | | | | +--------+ + + + + | 05/01/ | Procedure | Cardiology | | | | 2019 | visit | | | | +--------+ + + + + | 05/01/ | Office | Cardiology | Sil[place], | | | 2019 | Visit | | [address] | | | | | | [address] [place], | | | | | | [place] [address] | | | | | | [phone] | | | | | | | | +--------+ + + + + | 05/21/ | Implant | Cardiology | Daljit Singletary, | Remote Device | | 2019 | Monitor | | [address] [facility] | Interrogation | | | | | [place], | (Primary Dx); | | | | | [place] [address] | Pacemaker; | | | | | [phone] | Sinoatrial node | | | | [...]
--- OUTSIDE RECORDS SUMMARY | ~2020-04-13 | XMS | Encounter Summary ---
Demographics + + + | Address | [address] | | | [place] [address] | + + + | Home Phone [...] + + | 08/05/ | Hospital | [facility] | Emmanuel Daniel MD | | | 2009 | Encounter | MED CTR XRAY [address] | [address] | | | | | [place] | [address] [place], [place] | | | | | [place] [address] | [address] | | | | | [phone] | | | +--------+ + + + [...] | | | | | | [place] [address] | | | | | | [phone] | | | | | | | [...] | | | | | | [place] [address] | | | | | | [phone] | | | | | | | | +--------+ + + + + | 05/21/ | Implant | Cardiology | Daljit Singletary, | Remote Device | | 2019 | Monitor | | [address] [place] | Interrogation | | | | | [place], | (Primary Dx); | | | | | [place] [address] | Pacemaker; | | | | | [phone] | Sinoatrial node | | | | | | dysfunction (HCC) | | | | | | with symptomatic | | | | | | bradycardia | +--------+ + + + + documented as of this encounter Visit Diagnoses Not on filedocumented in this encounter"
--- OUTSIDE RECORDS SUMMARY | ~2020-04-13 | XMS | Encounter Summary ---
Demographics + + + | Address | [address] | | | [place] [address] | + + + | Home Phone [...] Providers + +------+ + | Care Financial Compliance Manager Name | Role | Phone [...] | RN | | | | | [place], | | | | | | [place] [address] | | | | | | [phone] | | | +--------+ + + + [...] | | | | | | [place] [address] | | | | | | [phone] | | | | | | | | +--------+ + + + + | 05/01/ | Procedure | Cardiology | | | | 2019 | visit | | | | +--------+ + + + + | 05/01/ | Office | Cardiology | Silvia, | | | 2019 | Visit | | [address] | | | | | | [place], | | | | | | [place] [address] | | | | | | [phone] | | | | | | | | +--------+ + + + + | 05/21/ | Implant | Cardiology | Daljit Singletary, | Remote Device | 2019 | Monitor | | [address] [place] | Interrogation | | | | | [place], | (Primary Dx); | | | | | [place] [address] | Pacemaker; | | | | | [phone] | Sinoatrial node | | | | | | dysfunction (HCC) | | | | | | with symptomatic | | | | | | bradycardia | +--------+ + + + + documented as of this encounter Visit Diagnoses Not on filedocumented in this encounter"
--- OUTSIDE RECORDS SUMMARY | ~2020-04-13 | XMS | Encounter Summary ---
Demographics + + + | Address | [address] | | | [place] [address] | + + + | Home Phone [...] Providers + +------+ + | Care Product Developer Name | Role | Phone | + +------+ + | Michael Amanda DO | PCP | | + +------+ + Encounter Details +--------+ + + + + | Date | Type | Department | Care Team | Description | +--------+ + + + + | 07/30/ | Abstract | [facility] | Michael Amanda, | | | 2013 | | [facility] | DO [address] | | | | | [address] | [place] | | | | | [place] | [address] | | | | | [address] | | | | | | [phone] | | | +--------+ + + + [...] | | | | | | [place] [address] | | | | | | [phone] | | | | | | | | +--------+ + + + + | 05/01/ | Procedure | Cardiology | | | | 2019 | visit | | | | +--------+ + + + + | 05/01/ | Office | Cardiology | Silvia, | | | 2019 | Visit | | PARISA Vernon [address] | | | | | | [place], | | | | | | [place] [address] | | | | | | [phone] | | | | | | | | +--------+ + + + + | 05/21/ | Implant | Cardiology | Daljit Singletary, | Remote Device | | 2019 | Monitor | | [address] [place] | Interrogation | | | | | [place], | (Primary Dx); | | | | | [place] [address] | Pacemaker; | | | | | [phone] | Sinoatrial node | | | | [...] [address] | [place] | [phone] | | [facility] | | [address] | | | - LABORATORY | | | | + + + + + | [address] | [address] | [place] | | | [facility] | | [address] | | | - [...] | | | | | | | Burmese, | | | | | | External [...]
--- OUTSIDE RECORDS SUMMARY | ~2020-04-13 | XMS | Encounter Summary ---
Demographics + + + | Address | [address] | | | [place] [address] | + + + | Home Phone [...] Providers + +------+ + | Care Oracle Manufacturing Consultant Name | Role | Phone | [...] Eva [place]SE | | | | | [place], [place] | [address] | | | | | [address] | [place] [address] | | | | | [phone] | [phone] | | | | | | | [...] | | | | | | [place] [address] | | | | | | [phone] | | | | | | | [...] | | | | | | [place] [address] | | | | | | [phone] | | | | | | | | +--------+ + + + + | 05/21/ | Implant | Cardiology | Daljit Singletary, | Remote Device | 2019 | Monitor | | [address] [place] | Interrogation | | | | | [place], | (Primary Dx); | | | | | [place] [address] | Pacemaker; | | | | | [phone] | Sinoatrial node | | | | [...]
--- OUTSIDE RECORDS SUMMARY | ~2020-04-13 | XMS | Encounter Summary ---
Demographics + + + | Address | [address] | | | [place] [address] | + + + | Home Phone [...] Providers + +------+ + | Care Injection Mold Tooling Technician Name | Role | Phone | + +------+ + PCP | Unavailable | + +------+ + Encounter Details +--------+ + + + + | Date | Type | Department | Care Team | Description | +--------+ + + + + | 09/13/ | [facility] | [facility] | Jonathan, | | | 2009 | Encounter | MED CTR EMERGENCY | Martell Cr MD [address] | | | | | CENTER [address] | [place] | | | | | [place] | [place] [address] | | | | | [address] | [phone] | | | | | [phone] | | | +--------+ + + + [...] | | | | | | [place] [address] | | | | | | [phone] | | | | | | | [...] | | | | | | [place] [address] | | | | | | [phone] | | | | | | | | +--------+ + + + + | 05/21/ | Implant | Cardiology | Daljit Singletary, | Remote Device | 2019 | Monitor | | MD [address] [place] | Interrogation | | | | | [place], | (Primary Dx); | | | | | [place] [address] | Pacemaker; | | | | | [phone] | Sinoatrial node | | | | | | dysfunction (HCC) | | | | | | with symptomatic | | | | | | bradycardia | +--------+ + + + + documented as of this encounter Visit Diagnoses Not on filedocumented in this encounter"
--- OUTSIDE RECORDS SUMMARY | ~2020-04-13 | XMS | Encounter Summary ---
Demographics + + + | Address | [address] | | | [place] [address] | + + + | Home Phone [...] + + + + | 04/28/ | [facility] | [facility] | Jonathan, | | | 2008 | Encounter | MED CTR EMERGENCY | Martell Cr MD [address] | | | | | CENTER [address] | [place] | | | | | [place] | [place] [address] | | | | | [address] | [phone] | | | | | [phone] | | | +--------+ + + + [...] | | | | | | [place] [address] | | | | | | [phone] | | | | | | | [...] | | | | | | [place] [address] | | | | | | [phone] | | | | | | | | +--------+ + + + + | 05/21/ | Implant | Cardiology | Daljit Singletary, | Remote Device | 2019 | Monitor | | MD [address] [place] | Interrogation | | | | | [place], | (Primary Dx); | | | | | [place] [address] | Pacemaker; | | | | | [phone] | Sinoatrial node | | | | | | dysfunction (HCC) | | | | | | with symptomatic | | | | | | bradycardia | +--------+ + + + + documented as of this encounter Visit Diagnoses Not on filedocumented in this encounter"
--- OUTSIDE RECORDS SUMMARY | ~2020-04-13 | XMS | Encounter Summary ---
Demographics + + + | Address | [address] | | | [place] [address] | + + + | Home Phone [...] Team Providers + +------+ + | Care Retort Loader Name | Role | Phone | [...] unspecified | [address] | [address] | | | | | type | [address] | [place], | | | | | Procedures | [place], | [place] | | | | | [place] | [place] [address] | [address] | | | | | Stress Test | Phone: | Phone: | | | | | (Vasodilator | [phone] | [phone] | | | | | ) CHG | Fax: | Fax: | | | | | MYOCARDIAL | [phone] | [phone] | | | | | SPECT | | | | | | | MULTIPLE | | | | | | | STUDIES AR | | | | | | | CV STRS TST | | | | | | | XERS&/OR RX | | | | | | | CONT ECG W/O | | | | | | | I&R AR | | | | | | [...] | type | [address] | [address] | | | | | Procedures | [place] | [place], | | | | | FUP | [place] | [place] [address] | | | | | | [address] | Phone: | | | | | | Phone: | [phone] | | | | | | [phone] | Fax: | | | | | | Fax: | [phone] | | | | | | [phone] | | +--------+ + + + + + Encounter Details +--------+---------+ + + + | Date | Type | Department | Care Team | Description | +--------+---------+ + + + | 06/27/ | Office | [facility] | Sydni Singletary, | Pacemaker | | 2017 | Visit | CARDIOLOGY [address] | [facility] | reprogramming/check | | | | [address] [place], | [place], | DO [place] DELETE | | | | [place] [address] | [place] [address] | (Primary Dx); Chest | | | | [phone] | [phone] | pain, unspecified | | | | [...] this encounter Patient Instructions Patient Instructions Mariana Valentnie RN - 06/27/2018 1:30 PM PDT Persantine/Lexiscan [...] of non-critical coronary artery d isease involving [place] coronary artery of [place] heart without angina pectoris, essential h [...] that time, patient has been seen at [place] emergency department on 018 for chest pain [...] coronary artery of [place] heart without angina pectoris Cannabis abuse, [...] every evening 90 tablet 0 [facility] [...] 3RD DOSE, CALL 911 100 tablet 3 [place]-3 Fatty Acids (SALMON OIL-1000 PO) CAPS, one capsule by mouth daily twice daily ONE TOUCH DELICA LANCETS [facility] Check glucose as needed for hypoglycemia 100 [...] to go back in 3 days to [place] for an attempt of ablation under general [...] PVCs. 2. Non-critical Coronary artery disease involving [place] coronary artery of [place] heart [facility] angina pectoris: A. Normal exercise sestamibi stress test on 05/25/09. LVEF by [facility] ed SPECT was 53%. B. [...] cannot completely be ruled out . D. [facility] 12/25/13, shows non critical [...] He is in a class I of [place] [employer] functiona l class. There is [...] reviewed and edited this note. Allyson Curtis, Oceanography Professor 06/27/2018 I, Sydni Singletary MD, personally performed the services described in this documentation, as scribed in my presence and it is both accurate and complete. Allyson Curtis, Med Ass t 06/27/2018 14:15 Electronically signed by: Sydni Singletary MD [facility] 06/27/2018 Portions of this chart may have been created with [employer] voice recognition software. Occasi onal wrong-word [...] | | | | | | [place] [address] | | | | | | [phone] | | | | | | | | +--------+ + + + + | 05/01/ | Procedure | Cardiology | | | | 2019 | visit | | | | +--------+ + + + + | 05/01/ | Office | Cardiology | Silvia, | | | 2019 | Visit | | [address] | | | | | | [address], | | | | | | [place] [address] | | | | | | [phone] | | | | | | | | +--------+ + + + + | 05/21/ | Implant | Cardiology | Sydni Singletary, | Remote Device | 2019 | Monitor | | [address] | Interrogation | | | | | [place], | (Primary Dx); | | | | | [place] [address] | Pacemaker; | | | | | [phone] | Sinoatrial node | | | | [...] SYDNI | | | | | | ([id number]) on 06/27/2018 | | | | | [...]
--- OUTSIDE RECORDS SUMMARY | ~2020-04-13 | XMS | Encounter Summary ---
Demographics + + + | Address | [address] | | | [place] [address] | + + + | Home Phone [...] Results | | 2013 | | [facility] | DO [address] | | | | | [address] | [place] | | | | | [place] | [address] | | | | | [address] | | | | | | [phone] | | | +--------+ + + + [...] | | | | | | [place], | | | | | | [place] [address] | | | | | | [phone] | | | | | | | | +--------+ + + + + | 05/01/ | Procedure | Cardiology | | | | 2019 | visit | | | | +--------+ + + + + | 05/01/ | Office | Cardiology | Silvia, | | | 2019 | Visit | | [address] | | | | | | [place], | | | | | | [place] [address] | | | | | | [phone] | | | | | | | | +--------+ + + + + | 05/21/ | Implant | Cardiology | Daljit Singletary, | Remote Device | 2019 | Monitor | | MD [address] | Interrogation | | | | | [place], | (Primary Dx); | | | | | [place] [address] | Pacemaker; | | | | | [phone] | Sinoatrial node | | | | | | dysfunction (HCC) | | | | | | with symptomatic | | | | | | bradycardia | +--------+ + + + + documented as of this encounter Visit Diagnoses Not on filedocumented in this encounter"
--- OUTSIDE RECORDS SUMMARY | ~2020-04-13 | XMS | Encounter Summary ---
Demographics + + + | Address | [address] | | | [place] [address] | + + + | Home Phone [...] Team Providers + +------+ + | Care Branding Machine Tender Name | Role | Phone [...] Telephone | [facility] | [place], | Other (chest pain) | | 2018 | | CARDIOLOGY [address] | [place] [address] | | | | | [place], | [place], | | | | | [place] [address] | [place] [address] | | | | | [phone] | | | | | | | [...] | | | | | | [place] [address] | | | | | | [phone] | | | | | | | [...] | | | | | | [place] [address] | | | | | | [phone] | | | | | | | | +--------+ + + + + | 05/21/ | Implant | Cardiology | Daljit Singletary, | Remote Device | 2019 | Monitor | | [address] | Interrogation | | | | | [facility] [place], | (Primary Dx); | | | | | [place] [address] | Pacemaker; | | | | | [phone] | Sinoatrial node | | | | | | dysfunction (HCC) | | | | | | with symptomatic | | | | | | bradycardia | +--------+ + + + + documented as of this encounter Visit Diagnoses Not on filedocumented in this encounter"
--- OUTSIDE RECORDS SUMMARY | ~2020-04-13 | XMS | Encounter Summary ---
Demographics + + + | Address | [address] | | | [place] [address] | + + + | Home Phone [...] Providers + +------+ + | Care Station Repairer Name | Role | Phone | [...] Dx) | | | | [place] | [place] | | | | | [address] | [address] | | | | | [phone] | | | +--------+---------+ + + + [...] Premature ventricular contraction [facility] health care 06/26/2013 LAST PSA:12/16/2010 [...] CV LHC; Surgeon: Daljit Singletary MD; Location: [facility] CV LAB CARDIAC CATHERIZATION N/A 01/25/2019 Procedure: CV Cor Angio; Surgeon: Daljit Singletary MD; Location: [facility] CV LAB COLONOSCOPY N/A 12/24/2017 Procedure: COLONOSCOPY; Surgeon: Emmanuel Daniel MD; Location: [facility] MEDICAL PROCEDURE UNIT COLONOSCOPY N/A 01/05/2019 Procedure: COLONOSCOPY; Surgeon: Emmanuel Daniel MD; Location: [facility] MEDICAL PROCEDURE UNIT EGD 12/24/2017 HARDWARE [...] Procedure: EGD; Surgeon: Emmanuel Daniel MD; Location: [facility] MEDICAL PROCEDURE UNIT UPPER GASTROINTESTINAL ENDOSCOPY N/A 01/05/2019 Procedure: EGD; Surgeon: Emmanuel Daniel MD; Location: [facility] MEDICAL PROCEDURE UNIT URETEROSCOPY Left 04/13/2019 Procedure: Cystoscopy, Left ureteroscopy with laser lithotripsy, Left ureteral stent place ment; Surgeon: Matthew Uriarte MD; Location: [facility] MAIN OR VASECTOMY Family History: Family [...] 911, Disp: 100 ta blet, Rfl: 3 [place]-3 Fatty Acids (SALMON OIL-1000 PO), CAPS, one [...] pH, Urine 8.0 5.0 - 8.0 Specific [place] 1.008 1.001 - 1.030 Protein, Urine Negative [...] have not thoroughly proofread this note, and petroleum engineering professor errors are very likely to occur. CC: [...] | | | | | | [place], | | | | | | [place] [address] | | | | | | [phone] | | | | | | | | +--------+ + + + + | 05/01/ | Procedure | Cardiology | | | | 2019 | visit | | | | +--------+ + + + + | 05/01/ | Office | Cardiology | Silvia, | | | 2019 | Visit | | [address] [place] [address] | | | | | | [place], | | | | | | [place] [address] | | | | | | [phone] | | | | | | | | +--------+ + + + + | 05/21/ | Implant | Cardiology | Daljit Singletary, | Remote Device | 2019 | Monitor | | MD [address] [place] | Interrogation | | | | | [place], | (Primary Dx); | | | | | [place] [address] | Pacemaker; | | | | | [phone] | Sinoatrial node | | | | [...]
--- OUTSIDE RECORDS SUMMARY | ~2020-04-13 | XMS | Encounter Summary ---
Demographics + + + | Address | [address] | | | [place] [address] | + + + | Home Phone [...] Providers + +------+ + | Care Printing Worker Supervisor Name | Role | Phone | [...] | CARDIOLOGY [address] | [address] [place] | Interrogation | | | | [place], | [place], | (Primary Dx); | | | | [place] [address] | [place] [address] | Pacemaker; | | | | [phone] | [phone] | Sinoatrial node | | | | [...] | | | | | | [place] [address] | | | | | | [phone] | | | | | | | | +--------+ + + + + | 05/01/ | Procedure | Cardiology | | | | 2019 | visit | | | | +--------+ + + + + | 05/01/ | Office | Cardiology | Silvia, | | | 2019 | Visit | | [address] W | | | | | | [place], | | | | | | [place] [address] | | | | | | [phone] | | | | | | | | +--------+ + + + + | 05/21/ | Implant | Cardiology | Daljit Singletary, | Remote Device | | 2019 | Monitor | | [address] [place] | Interrogation | | | | | [place], | (Primary Dx); | | | | | [place] [address] | Pacemaker; | | | | | [phone] | Sinoatrial node | | | | [...] into | | | [facility] for remote interrogation results. Data collected [...]
--- OUTSIDE RECORDS SUMMARY | ~2020-04-13 | XMS | Encounter Summary ---
Demographics + + + | Address | [address] | | | [place] [address] | + + + | Home Phone [...] Providers + +------+ + | Care Dispatch Associate Name | Role | Phone | [...] 2015 | | CARDIOLOGY [address] | MEDICAL EDUCATION SPECIALIST [address] [place] | reprogramming/check | | | | [place], | [place], [place] | DO NOT DELETE | | | | [place] [address] | [address] | (Primary Dx); | | | | [phone] | | Pacemaker - | | | [...] W | | | | | | [place], | | | | | | [place] [address] | | | | | | [phone] | | | | | | | | +--------+ + + + + | 05/01/ | Procedure | Cardiology | | | | 2019 | visit | | | | +--------+ + + + + | 05/01/ | Office | Cardiology | Silvia, | | | 2019 | Visit | | [place] W | | | | | | [place], | | | | | | [place] [address] | | | | | | [phone] | | | | | | | | +--------+ + + + + | 05/21/ | Implant | Cardiology | Daljit Singletary, | Remote Device | | 2019 | Monitor | | [address] [facility] | Interrogation | | | | | [place], | (Primary Dx); | | | | | [place] [address] | Pacemaker; | | | | | [phone] | Sinoatrial node | | | | [...] | | 2. 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
--- OUTSIDE RECORDS SUMMARY | ~2020-04-13 | XMS | Encounter Summary ---
Demographics + + + | Address | [address] | | | [place] [address] | + + + | Home Phone [...] Team Providers + +------+ + | Care Specialty Cook Name | Role | Phone | [...] | 07/30/ | Telephone | [facility] | Michael Amanda, | Results | | 2013 | | MEDICINE [place] | DO [address] | | | | | [address] | [place] | | | | | [place] | [address] | | | | | [address] | | | | | | [phone] | | | +--------+ + + + [...] W | | | | | | [place], | | | | | | [place] [address] | | | | | | [phone] | | | | | | | | +--------+ + + + + | 05/01/ | Procedure | Cardiology | | | | 2019 | visit | | | | +--------+ + + + + | 05/01/ | Office | Cardiology | Silvia, | | | 2019 | Visit | | [place] W | | | | | | [place], | | | | | | [place] [address] | | | | | | [phone] | | | | | | | | +--------+ + + + + | 05/21/ | Implant | Cardiology | Daljit Singletary, | Remote Device | 2019 | Monitor | | MD [address] | Interrogation | | | | | [place], | (Primary Dx); | | | | | [place] [address] | Pacemaker; | | | | | [phone] | Sinoatrial node | | | | | | dysfunction (HCC) | | | | | | with symptomatic | | | | | | bradycardia | +--------+ + + + + documented as of this encounter Visit Diagnoses Not on filedocumented in this encounter"
--- OUTSIDE RECORDS SUMMARY | ~2020-04-13 | XMS | Encounter Summary ---
Demographics + + + | Address | [address] | | | [place] [address] | + + + | Home Phone [...] Providers + +------+ + | Care Electric Vehicle Electrician Name | Role | Phone | + +------+ + PCP | Unavailable | + +------+ + Encounter Details +--------+ + + + + | Date | Type | Department | Care Team | Description | +--------+ + + + + | 05/13/ | [facility] | [facility] | Dom Graham, | | | 2010 | Encounter | MED CTR EMERGENCY | [address] | | | | | CENTER [address] | [place] | | | | | [place] | [address] | | | | | [address] | | | | | | [phone] | | | +--------+ + + + [...] | | | | | | [place] [address] | | | | | | [phone] | | | | | | | [...] | | | | | | [place] [address] | | | | | | [phone] | | | | | | | | +--------+ + + + + | 05/21/ | Implant | Cardiology | Daljit Singletary, | Remote Device | 2019 | Monitor | | MD [address] [place] | Interrogation | | | | | [place], | (Primary Dx); | | | | | [place] [address] | Pacemaker; | | | | | [phone] | Sinoatrial node | | | | [...] | | | | | the [employer]ie | | | | | | Access Analyzer. | | | | + + + + + + + + | Specimen | + + | | + + + + + + + | Performing | Address | City/State/Zipcode | Phone Number | | Organization | | | | + + + + + | [facility] | [address] | [place] | [phone] | | [facility] | | [address] | | | - LABORATORY | | | | + + + + + | [facility] | [address] | [place] | | | [facility] | | [address], [facility] | | | [...] [address] | [place] | [phone] | | [facility] | | [address] | | | - LABORATORY | | | | + + + + + | [facility] | [address] | [place] | | | [facility] | | [address] | | [...] + | [facility] | [address] | [place] | [phone] | | [facility] | | [address] | | | - LABORATORY | | | | + + + + + | [facility] | [address] | [place] | | | [facility] | | [address] | | | - LABORATORY [...] + | [facility] | [address] | [place], [place] | [phone] | | [facility] | | [address] | | | - LABORATORY | | | | + + + + + | [facility] | [address] | [place], [place] | | | [facility] | | [address] | | | - LABORATORY | | | | + + + + + XR Chest AP Portable (05/13/2011 3:01 PM PDT) + + | Specimen | + + | | + + + + + | Narrative | Performed At | + + + | [facility] | [facility] | | [address] [facility] | [facility] | | PORTABLE CHEST CLINICAL | DIAG [...] Transcribed Date/Time: | | | 05/13/2011 17:06 Air Pollution Specialist: <Electronically Signed | | | by Jama Solis MD> 05/13/112038 | | + + + + + | Procedure Note | + + | Kevin, Rad Conversion - 12/29/2013 3:12 PM [facility] | | Diagnostic Imaging Department [address] [place] [address] | | PORTABLE CHEST CLINICAL HISTORY: TACHYCARDIA. [...] 16:57 | |Transcribed Date/Time: 05/13/2011 17:06 | |Air Pollution Specialist: | |<Electronically Signed by Jama Solis MD> [...]
--- OUTSIDE RECORDS SUMMARY | ~2020-04-13 | XMS | Encounter Summary ---
Demographics + + + | Address | [address] | | | [place] [address] | + + + | Home Phone [...] Providers + +------+ + | Care Plastic Extruding Machine Operator Name | Role | Phone | + +------+ + PCP | Unavailable | + +------+ + Encounter Details +--------+ + + + + | Date | Type | Department | Care Team | Description | +--------+ + + + + | 01/17/ | [facility] | [facility] | Jonas Ramos, | | | 2009 | Encounter | [facility] | MD [address] | | | | | CENTER [address] | [facility] | | | | | [place] | [place] [address] | | | | | [address] | [phone] | | | | | [phone] | | | +--------+ + + + [...] [address] | | | | | | [address] [place], | | | | | | [place] [address] | | | | | | [phone] | | | | | | | | +--------+ + + + + | 05/01/ | Procedure | Cardiology | | | | 2019 | visit | | | | +--------+ + + + + | 05/01/ | Office | Cardiology | Silvia, | | | 2019 | Visit | | [address] | | | | | | [place], | | | | | | [place] [address] | | | | | | [phone] | | | | | | | | +--------+ + + + + | 05/21/ | Implant | Cardiology | Daljit Singletary, | Remote Device | | 2019 | Monitor | | [place] [address] | Interrogation | | | | | [place], | (Primary Dx); | | | | | [place] [address] | Pacemaker; | | | | | [phone] | Sinoatrial node | | | | | | dysfunction (HCC) | | | | | | with symptomatic | | | | | | bradycardia | +--------+ + + + + documented as of this encounter Visit Diagnoses Not on filedocumented in this encounter"
--- OUTSIDE RECORDS SUMMARY | ~2020-04-13 | XMS | Encounter Summary ---
Demographics + + + | Address | [address] | | | [place] [address] | + + + | Home Phone [...] Team Providers + +------+ + | Care Magician Helper Name | Role | Phone | [...] 2019 | | GASTROENTEROLOGY | [address], [place] | | | | | [address] [place] | [address] [place], [place] | | | | | [address] [place], [place] | [address] | | | | | [address] | | | | | | [phone] | | | +--------+ + + + [...] | | | | | | [place] [address] | | | | | | [phone] | | | | | | | [...] | | | | | | [place] [address] | | | | | | [phone] | | | | | | | | +--------+ + + + + | 05/21/ | Implant | Cardiology | Daljit Singletary, | Remote Device | 2019 | Monitor | | [address] | Interrogation | | | | | [place], | (Primary Dx); | | | | | [place] [address] | Pacemaker; | | | | | [phone] | Sinoatrial node | | | | | | dysfunction (HCC) | | | | | | with symptomatic | | | | | | bradycardia | +--------+ + + + + documented as of this encounter Visit Diagnoses Not on filedocumented in this encounter"
--- OUTSIDE RECORDS SUMMARY | ~2020-04-13 | XMS | Encounter Summary ---
Demographics + + + | Address | [address] | | | [place] [address] | + + + | Home Phone [...] + +------+ + | Care Sales Project Administrator Name | Role | Phone | [...] Office | [facility] | [place], | Chest pain (Primary | | 2013 | Visit | CARDIOLOGY [address] | [address] | Dx); Symptomatic | | | | [place], | [place], | PVCs; | | | | [place] [phone] | [place] [phone] | Hyperlipidemia; | | | | [phone] | [phone] | Hypertension; | | | | | [...] this time to see a specialist in [place] and he was to follow up with [...] MOUTH EVERY DAY 30 table t 5 [place]-3 Fatty Acids (SALMON OIL-1000 PO) CAPS, [...] to go back in 3 days to [place] for an attempt of ablation under general [...] weeks. He is in class II of [place] [employer] funct ional class. There are [...] tolic function, LVEF 65 to 70%. [employer] DDD permanent pacemaker implantation on 06/14/09 by [...] made to ensure accuracy; however, inadvertent computerized mobile sales assistant errors may be pre sent. documented in this encounter Plan of Treatment +--------+ + + + + | Date | Type | Specialty | Care Team | Description | +--------+ + + + + | 05/01/ | Appointment | Radiology | Silvia, | | | 2019 | | | [address] | | | | | | [place], | | | | | | [place] [address] | | | | | | [phone] | | | | | | | | +--------+ + + + + | 05/01/ | Procedure | Cardiology | | | | 2019 | visit | | | | +--------+ + + + + | 05/01/ | Office | Cardiology | Silvia, | | | 2019 | Visit | | [address] | | | | | | [place], | | | | | | [place] [address] | | | | | | [phone] | | | | | | | | +--------+ + + + + | 05/21/ | Implant | Cardiology | Daljit Singletary, | Remote Device | 2019 | Monitor | | [address] [place] | Interrogation | | | | | [place], | (Primary Dx); | | | | | [place] [address] | Pacemaker; | | | | | [phone] | Sinoatrial node | | | | [...] of unspecified type of vessel, | | [place] or graft | + + documented in this encounter
--- OUTSIDE RECORDS SUMMARY | ~2020-04-13 | XMS | Encounter Summary ---
Demographics + + + | Address | [address] | | | [place] [address] | + + + | Home Phone [...] Providers + +------+ + | Care Nuclear Physicist Name | Role | Phone | + +------+ + | Michael Amanda DO | PCP | | + +------+ + Encounter Details +--------+ + + + + | Date | Type | Department | Care Team | Description | +--------+ + + + + | 02/27/ | Hospital | [facility] | Shelly Carter DO | Chest pain; | | 2013 - | Encounter | [facility] | [address] | Pacemaker; | | | | CLINICAL DECISION | [place] [address] | Mild dehydration | | 02/28/ | | [address] [facility] | [phone] | | | 2013 | | [place], [place] | | | | | | [address] | | | | | | [phone] | | | +--------+ + + + [...] 2252 Date of Service: 02/28/141044 Status: Addendum Cash Register Repairer: Dev Montano MD (Physician) Related Notes: Original Note by Dev Montano MD (Physician) filed at 02/28/14 1107 Patient ID: Pina Gay [id number] y.o. 1960 Admit date: 02/27/2014 Discharge [...] - 99 mg/dL Final Testing performed at [address] [address] BUN Date Value Range Status 02/28/2014 15 8 - 25 mg/dL Final Testing performed at [address] [address] CREATININE Date Value Range Status 02/28/2014 0.74 0.70 - 1.30 mg/dL Final Testing performed at [address] [address] BUN/CREAT Date Value Range Status 02/28/2014 20 Final Testing performed at [address] [address] TOTAL PROTEIN Date Value Range Status 02/28/2014 6.1* 6.3 - 8.2 g/dL Final Testing performed at [address] [address] GLOBULIN Date Value Range Status 02/28/2014 2.1 1.3 - 4.9 g/dL Final Testing performed at [address] [address] TBIL Date Value Range Status 02/28/2014 1.4 0.1 - 1.5 mg/dL Final Testing performed at [address] [address] ALT Date Value Range Status 02/28/2014 27 10 - 65 U/L Final Testing performed at [address] [address] AST Date Value Range Status 02/28/2014 31 10 - 45 U/L Final Testing performed at [address] [address] SODIUM Date Value Range Status 02/28/2014 138 135 - 143 mmol/L Final Testing performed at [facility], [address] [place] [address] POTASSIUM Date Value Range Status 02/28/2014 3.4* 3.5 - 4.9 mmol/L Final Testing performed at [facility], [address] [place] [address] CHLORIDE Date Value Range Status 02/28/2014 108 99 - 109 mmol/L Final Testing performed at [address] [address] CO2 Date Value Range Status 02/28/2014 21* 23 - 32 mmol/L Final Testing performed at [facility], [address] [place] [address] ANION GAP AGAP Date Value Range Status 02/28/2014 12 5 - 20 mmol/L Final Testing performed at [facility], [address] [place] [address] Xr Chest Pa And Lateral 02/27/2014 PINA [...] 3-D reconstructi ons were performed using the [employer] 3-D software and sent to PACS. Oral Contrast: None I V contrast: 100 mL IsoVue 370 COMPARISON: None. 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 Singletary in [place] in December 2013 at [facility] which showed minimal occlusive disease. One artery was 25% and another was 15%, per patient. I requested official cardiac catheterization report from [place] and still waiting for it to come. [...] are the prescriptions that you need to tack picker. You may get these medications from any pharmacy. amLODIPine 5 MG tablet pantoprazole 40 MG tablet Activity: activity as tolerated Diet: cardiac diet Wound Care: not applicable There are no Patient Instructions on file for this visit. Per Pt None Chaka Ortiz MD [address] [facility] [id number] In 1 week Ariel Pulido MD [address] [facility] [phone] In 1 week Daljit Singletary MD [address] [facility] [address] [facility] [address] In 1 week Signed: DEV MONTANO 02/28/2014 10:45 AM Addendum:ADDENDUM I just received a cardiac catheterization report from [facility], [place], which was done on December 25, 2013. [...] + + + +---------+ + + | [place]-3 Fatty | CAPS, one capsule by | [...] 02/28/141211 Date of Service: 02/28/141210 Status: Signed Cash Register Repairer: Bijal Sosa RN (Registered Nurse) Discharge instructions [...] 02/28/1411 Date of Service: 02/28/1411 Status: Signed Cash Register Repairer: Mary Wetezl RPH (Pharmacist) Clinical Pharmacy Note: Renal Monitoring [...] | | | | | | [place] [address] | | | | | | [phone] | | | | | | | [...] | | | | | | [place] [address] | | | | | | [phone] | | | | | | | | +--------+ + + + + | 05/21/ | Implant | Cardiology | Daljit Singletary, | Remote Device | | 2020 | Monitor | | [address] | Interrogation | | | | | [facility], | (Primary Dx); | | | | | [place] [address] | Pacemaker; | | | | | [phone] | Sinoatrial node | | | | [...] EXTERNAL | | | | performed at [facility];[address] | | LAB | | | | [address];[place], [place] | | | | | | [address] | | | | + + + [...] | | | | | | ACUTE [place] Testing | | | | | | performed at [facility];[address] | | | | | | [facility];[place], [place] | | | | | | [address] | | | | + + + [...] | | | | | [place] [address] | | | | + + + + + + | Red Blood | 4.68Comment: Testing | 4.20 - 5.70 | EXTERNAL | | | Cells | performed at [facility], [address] | M/uL | LAB | | | Counted | [address], | | | | | | [place] [address] | | | | + + + + + + | Hemoglobin | 15.3Comment: Testing | 13.2 - 17.0 | EXTERNAL | | | | performed at [facility], [address] | g/dL | LAB | | | | [address], | | | | | | [place] [address] | | | | + + + + + + | Hematocrit, | 44.2Comment: Testing | 39.0 - 50.0 % | EXTERNAL | | | POC | performed at [facility], [address] | | LAB | | | | [address], | | | | | | [place] [address] | | | | + + + + + + | MCV | 94.5Comment: Testing | 80.0 - 100.0 fl | EXTERNAL | | | | performed at [facility], [address] | | LAB | | | | [address], | | | | | | [place] [address] | | | | + + + + + + | MCH | 32.6Comment: Testing | 27.0 - 34.0 pg | EXTERNAL | | | | performed at [facility], [address] | | LAB | | | | [address], | | | | | | [place] [address] | | | | + + + + + + | MCHC | 34.5Comment: Testing | 32.0 - 35.5 | EXTERNAL | | | | performed at [facility], [address] | g/dL | LAB | | | | [address], | | | | | | [place] [address] | | | | + + + + + + | RDW-CV | 45.5Comment: Testing | 37 - 53 fl | EXTERNAL | | | | performed at [facility], [address] | | LAB | | | | [address], | | | | | | [place] [address] | | | | + + + + + + | Platelet | 156Comment: Testing | 150 - 400 K/uL | EXTERNAL | | | Count | performed at [facility], [address] | | LAB | | | Plasma | [address], | | | | | | [place] [address] | | | | + + + + + + | MPV | 8.8Comment: Testing | fl | EXTERNAL | | | | performed at [facility], [address] | | LAB | | | | [address], | | | | | | [place] [address] | | | | + + + + + + | Differentia | AUTOMATEDComment: | | EXTERNAL | | | l Type | Testing performed at | | LAB | | | | [facility], [address] | | | | | | [place] | | | | | | [address] | | | | + + + + + + | % Segmented | 57.7Comment: Testing | % | EXTERNAL | | | | performed at [facility], [address] | | LAB | | | Neutrophils | [address], | | | | | | [place] [address] | | | | + + + + + + | % | 31.8Comment: Testing | % | EXTERNAL | | | Lymphocytes | performed at [facility], [address] | | LAB | | | | [address], | | | | | | [place] [address] | | | | + + + + + + | % Monocytes | 9.2Comment: Testing | % | EXTERNAL | | | | performed at [facility], [address] | | LAB | | | | [address], | | | | | | [place] [address] | | | | + + + + + + | % | 0.9Comment: Testing | % | EXTERNAL | | | Eosinophils | performed at [facility], [address] | | LAB | | | | [address], | | | | | | [place] [address] | | | | + + + + + + | % Basophils | 0.4Comment: Testing | % | EXTERNAL | | | | performed at [facility], [address] | | LAB | | | | [address], | | | | | | [place] [address] | | | | + + + + + + | Absolute | 3.9Comment: Testing | 1.9 - 7.4 K/uL | EXTERNAL | | | Segmented | performed at [facility], [address] | | LAB | | | Neutrophils | [address], | | | | | | [place] [address] | | | | + + + + + + | Absolute | 2.1Comment: Testing | 1.0 - 3.9 K/uL | EXTERNAL | | | Lymphocytes | performed at [facility], [address] | | LAB | | | | [address], | | | | | | [place] [address] | | | | + + + + + + | Absolute | 0.6Comment: Testing | 0 - 0.8 K/uL | EXTERNAL | | | Monocytes | performed at [facility], [address] | | LAB | | | | [address], | | | | | | [place] [address] | | | | + + + + + + | Absolute | 0.1Comment: Testing | 0 - 0.5 K/uL | EXTERNAL | | | Eosinophils | performed at [facility], [address] | | LAB | | | | [address], | | | | | | [place] [address] | | | | + + + + + + | Absolute | 0.0Comment: Testing | 0 - 0.1 K/uL | EXTERNAL | | | Basophils | performed at [facility], [address] | | LAB | | | | [address], | | | | | | [place] [address] | | | | + + + [...] EXTERNAL | | | | performed at [facility], [address] | | LAB | | | | [address], | | | | | | [place] [address] | | | | + + + [...] EXTERNAL | | | | performed at [facility], [address] | | LAB | | | | [address], | | | | | | [place] [address] | | | | + + + [...] EXTERNAL | | | | performed at [facility];[address] | | LAB | | | | [address];[place] | | | | | | [address] | | | | + + + [...] | | | | | [place] [address] | | | | + + + + + + | Triglycerid | 37Comment: Testing | mg/dL | EXTERNAL | | | es | performed at [facility], [address] | | LAB | | | | [address], | | | | | | [place] [address] | | | | + + + + + + | HDL | 35 (L)Comment: Testing | mg/dL | EXTERNAL | | | | performed at [facility], [address] | | LAB | | | | [address], | | | | | | [place] [address] | | | | + + + + + + | LDL, | 67Comment: Testing | mg/dL | EXTERNAL | | | Calculated | performed at [facility], [address] | | LAB | | | | [address], | | | | | | [place] [address] | | | | + + + [...] | | | | | [place] [address] | | | | + + + + + + | K | 3.4 (L)Comment: Testing | 3.5 - 4.9 | EXTERNAL | | | | performed at [facility], [address] | mmol/L | LAB | | | | [address], | | | | | | [place] [address] | | | | + + + + + + | Cl | 108Comment: Testing | 99 - 109 mmol/L | EXTERNAL | | | | performed at [facility], [address] | | LAB | | | | [address], | | | | | | [place] [address] | | | | + + + + + + | CO2 | 21 (L)Comment: Testing | 23 - 32 mmol/L | EXTERNAL | | | | performed at [facility], [address] | | LAB | | | | [address], | | | | | | [place] [address] | | | | + + + + + + | Anion Gap | 12Comment: Testing | 5 - 20 mmol/L | EXTERNAL | | | | performed at [facility], [address] | | LAB | | | | [address], | | | | | | [place] [address] | | | | + + + + + + | Glucose, | 107 (H)Comment: Testing | 65 - 99 mg/dL | EXTERNAL | | | Fasting | performed at [facility], [address] | | LAB | | | | [address], | | | | | | [place] [address] | | | | + + + + + + | BUN | 15Comment: Testing | 8 - 25 mg/dL | EXTERNAL | | | | performed at [facility], [address] | | LAB | | | | [address], | | | | | | [place] [address] | | | | + + + + + + | Creatinine | 0.74Comment: Testing | 0.70 - 1.30 | EXTERNAL | | | | performed at [facility], [address] | mg/dL | LAB | | | | [address], | | | | | | [place] [address] | | | | + + + + + + | BUN/Creatin | 20Comment: Testing | | EXTERNAL | | | ine Ratio | performed at [facility], [address] | | LAB | | | | [address], | | | | | | [place] [address] | | | | + + + + + + | Calcium | 8.9Comment: Testing | 8.5 - 10.2 | EXTERNAL | | | | performed at [facility], [address] | mg/dL | LAB | | | | [address], | | | | | | [place] [address] | | | | + + + + + + | Protein, | 6.1 (L)Comment: Testing | 6.3 - 8.2 g/dL | EXTERNAL | | | Total | performed at [facility], [address] | | LAB | | | | [address], | | | | | | [place] [address] | | | | + + + + + + | Albumin | 4.0Comment: Testing | 3.6 - 5.0 g/dL | EXTERNAL | | | | performed at [facility], [address] | | LAB | | | | [address], | | | | | | [place] [address] | | | | + + + + + + | Globulin | 2.1Comment: Testing | 1.3 - 4.9 g/dL | EXTERNAL | | | | performed at [facility], [address] | | LAB | | | | [address], | | | | | | [place] [address] | | | | + + + + + + | A/G Ratio | 1.9Comment: Testing | 1.0 - 2.4 | EXTERNAL | | | | performed at [facility], [address] | | LAB | | | | [address], | | | | | | [place] [address] | | | | + + + + + + | Bilirubin | 1.4Comment: Testing | 0.1 - 1.5 mg/dL | EXTERNAL | | | Total | performed at [facility], [address] | | LAB | | | | [address], | | | | | | [place], [place] [address] | | | | + + + + + + | ALP, | 46Comment: Testing | 35 - 115 U/L | EXTERNAL | | | External | performed at [facility], [address] | | LAB | | | | [address], | | | | | | [place] [address] | | | | + + + + + + | AST | 31Comment: Testing | 10 - 45 U/L | EXTERNAL | | | | performed at [facility], [address] | | LAB | | | | [address], | | | | | | [place] [address] | | | | + + + + + + | ALT | 27Comment: Testing | 10 - 65 U/L | EXTERNAL | | | | performed at [facility], [address] | | LAB | | | | [address], | | | | | | [place] [address] | | | | + + + [...] | | | | | | at [facility], [address] | | | | | | [address], | | | | | | [place] [address] | | | | + + + [...] + + | Historically converted procedure from [facility] environment | EXTERNAL LAB | [...] EXTERNAL | | | | performed at [facility];[address] | | LAB | | | | [address];[place], [place] | | | | | | [address] | | | | + + + [...] | | | | | | ACUTE [place] Testing | | | | | | performed at [facility];[address] | | | | | | [facility];[place], [place] | | | | | | [address] | | | | + + + [...] EXTERNAL | | | | performed at [facility];[address] | | LAB | | | | [address];[place] | | | | | | [address] | | | | + + + [...] were | | | performed using the [employer] 3-D software and sent to PACS. Oral | | | Contrast: None IV contrast: 100 mL IsoVue 370 COMPARISON: None. 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 Oral Contrast: NoneIV contrast: 100 | | mL IsoVue 370 COMPARISON:None. 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 via | [...] EXTERNAL | | | | performed at [facility];[address] | | LAB | | | | [address];[place] | | | | | | [address] | | | | + + + + + -+ | Red Blood | 5.19Comment: Testing | 4.20 - 5.70 | EXTERNAL | | | Cells | performed at [facility];[address] | M/uL | LAB | | | Counted | [address];[place] | | | | | | [address] | | | | + + + + + -+ | Hemoglobin | 16.8Comment: Testing | 13.2 - 17.0 | EXTERNAL | | | | performed at [facility];[address] | g/dL | LAB | | | | [address];[place] | | | | | | [address] | | | | + + + + + -+ | Hematocrit, | 49.5Comment: Testing | 39.0 - 50.0 % | EXTERNAL | | | POC | performed at [facility];[address] | | LAB | | | | [address];[place] | | | | | | [address] | | | | + + + + + -+ | MCV | 95.4Comment: Testing | 80.0 - 100.0 fl | EXTERNAL | | | | performed at [facility];[address] | | LAB | | | | [address];[place] | | | | | | [address] | | | | + + + + + -+ | MCH | 32.4Comment: Testing | 27.0 - 34.0 pg | EXTERNAL | | | | performed at [facility];[address] | | LAB | | | | [address];[place] | | | | | | [address] | | | | + + + + + -+ | MCHC | 34.0Comment: Testing | 32.0 - 35.5 | EXTERNAL | | | | performed at [facility];[address] | g/dL | LAB | | | | [address];[place] | | | | | | [address] | | | | + + + + + -+ | RDW-CV | 46.8Comment: Testing | 37 - 53 fl | EXTERNAL | | | | performed at [facility];[address] | | LAB | | | | [address];[place] | | | | | | [address] | | | | + + + + + -+ | Platelet | 179Comment: Testing | 150 - 400 K/uL | EXTERNAL | | | Count | performed at [facility];[address] | | LAB | | | Plasma | [address];[place] | | | | | | [address] | | | | + + + + + -+ | MPV | 8.6Comment: Testing | fl | EXTERNAL | | | | performed at [facility];[address] | | LAB | | | | [address];[place] | | | | | | [address] | | | | + + + + + -+ | Differentia | AUTOMATEDComment: | | EXTERNAL | | | l Type | Testing performed at | | LAB | | | | [facility];[address] | | | [address];[place] [address] | | | | + + + + + -+ | % Segmented | 62.4Comment: Testing | % | EXTERNAL | | | | performed at [facility];[address] | | LAB | | | Neutrophils | [address];[place] | | | | | | [address] | | | | + + + + + -+ | % | 26.3Comment: Testing | % | EXTERNAL | | | Lymphocytes | performed at [facility];[address] | | LAB | | | | [address];[place] | | | | | | [address] | | | | + + + + + -+ | % Monocytes | 10.3Comment: Testing | % | EXTERNAL | | | | performed at [facility];[address] | | LAB | | | | [address];[place] | | | | | | [address] | | | | + + + + + -+ | % | 0.5Comment: Testing | % | EXTERNAL | | | Eosinophils | performed at [facility];[address] | | LAB | | | | [address];[place] | | | | | | [address] | | | | + + + + + -+ | % Basophils | 0.5Comment: Testing | % | EXTERNAL | | | | performed at [facility];[address] | | LAB | | | | [address];[place] | | | | | | [address] | | | | + + + + + -+ | Absolute | 6.3Comment: Testing | 1.9 - 7.4 K/uL | EXTERNAL | | | Segmented | performed at [facility];[address] | | LAB | | | Neutrophils | [address];[place] | | | | | | [address] | | | | + + + + + -+ | Absolute | 2.7Comment: Testing | 1.0 - 3.9 K/uL | EXTERNAL | | | Lymphocytes | performed at [facility];[address] | | LAB | | | | [address];[place] | | | | | | [address] | | | | + + + + + -+ | Absolute | 1.0 (H)Comment: Testing | 0 - 0.8 K/uL | EXTERNAL | | | Monocytes | performed at [facility];[address] | | LAB | | | | [address];[place] | | | | | | [address] | | | | + + + + + -+ | Absolute | 0.0Comment: Testing | 0 - 0.5 K/uL | EXTERNAL | | | Eosinophils | performed at [facility];[address] | | LAB | | | | [address];[place] | | | | | | [address] | | | | + + + + + -+ | Absolute | 0.1Comment: Testing | 0 - 0.1 K/uL | EXTERNAL | | | Basophils | performed at [facility];[address] | | LAB | | | | [address];[place] | | | | | | [address] | | | | + + + + + -+ | Na | 139Comment: Testing | 135 - 143 | EXTERNAL | | | | performed at [facility];[address] | mmol/L | LAB | | | | [address];[place] | | | | | | [address] | | | | + + + + + -+ | K | 3.4 (L)Comment: Testing | 3.5 - 4.9 | EXTERNAL | | | | performed at [facility];[address] | mmol/L | LAB | | | | [address];[place] | | | | | | [address] | | | | + + + + + -+ | Cl | 108Comment: Testing | 99 - 109 mmol/L | EXTERNAL | | | | performed at [facility];[address] | | LAB | | | | [address];[place] | | | | | | [address] | | | | + + + + + -+ | CO2 | 21 (L)Comment: Testing | 23 - 32 mmol/L | EXTERNAL | | | | performed at [facility];[address] | | LAB | | | | [address];[place] | | | | | | [address] | | | | + + + + + -+ | Anion Gap | 14Comment: Testing | 5 - 20 mmol/L | EXTERNAL | | | | performed at [facility];[address] | | LAB | | | | [address];[place] | | | | | | [address] | | | | + + + + + -+ | Glucose, | 124 (H)Comment: Testing | 65 - 99 mg/dL | EXTERNAL | | | Fasting | performed at [facility];[address] | | LAB | | | | [address];[place] | | | | | | [address] | | | | + + + + + -+ | BUN | 20Comment: Testing | 8 - 25 mg/dL | EXTERNAL | | | | performed at [facility];[address] | | LAB | | | | [address];[place] | | | | | | [address] | | | | + + + + + -+ | Creatinine | 0.97Comment: Testing | 0.70 - 1.30 | EXTERNAL | | | | performed at [facility];[address] | mg/dL | LAB | | | | [address];[place] | | | | | | [address] | | | | + + + + + -+ | BUN/Creatin | 21Comment: Testing | | EXTERNAL | | | ine Ratio | performed at [facility];[address] | | LAB | | | | [address];[place] | | | | | | [address] | | | | + + + + + -+ | Calcium | 8.7Comment: Testing | 8.5 - 10.2 | EXTERNAL | | | | performed at [facility];[address] | mg/dL | LAB | | | | [address];[place] | | | | | | [address] | | | | + + + + + -+ | Protein, | 7.6Comment: Testing | 6.3 - 8.2 g/dL | EXTERNAL | | | Total | performed at [facility];[address] | | LAB | | | | [address];[place] | | | | | | [address] | | | | + + + + + -+ | Albumin | 4.2Comment: Testing | 3.6 - 5.0 g/dL | EXTERNAL | | | | performed at [facility];[address] | | LAB | | | | [address];[place] | | | | | | [address] | | | | + + + + + -+ | Globulin | 3.4Comment: Testing | 1.3 - 4.9 g/dL | EXTERNAL | | | | performed at [facility];[address] | | LAB | | | | [address];[place] | | | | | | [address] | | | | + + + + + -+ | A/G Ratio | 1.2Comment: Testing | 1.0 - 2.4 | EXTERNAL | | | | performed at [facility];[address] | | LAB | | | | [address];[place] | | | | | | [address] | | | | + + + + + -+ | Bilirubin | 1.1Comment: Testing | 0.1 - 1.5 mg/dL | EXTERNAL | | | Total | performed at [facility];[address] | | LAB | | | | [address];[place] | | | | | | [address] | | | | + + + + + -+ | ALP, | 77Comment: Testing | 35 - 115 U/L | EXTERNAL | | | External | performed at [facility];[address] | | LAB | | | | [address];[place] | | | | | | [address] | | | | + + + + + -+ | AST | 35Comment: Testing | 10 - 45 U/L | EXTERNAL | | | | performed at [facility];[address] | | LAB | | | | [address];[place] | | | | | | [address] | | | | + + + + + -+ | ALT | 43Comment: Testing | 10 - 65 U/L | EXTERNAL | | | | performed at [facility];[address] | | LAB | | | | [address];[place] | | | | | | [address] | | | | + + + [...] | | | | | | at [facility];[address] | | | | | | [address];[place] [address] | | | | + + + + + -+ | CK, Total | 510 (H)Comment: Testing | 55 - 400 U/L | EXTERNAL | | | | performed at [facility];[address] | | LAB | | | | [address];[place] | | | | | | [address] | | | | + + + [...] | | | | | performed at [facility];[address] | | | | | [address];[place] | | | | | | [address] | | | | + + + + + -+ | aPTT, | 24Comment: Testing | 23 - 32 seconds | EXTERNAL | | | Patient | performed at [facility];[address] | | LAB | | | | [address];[place] | | | | | | [address] | | | | + + + + + -+ | CK-MB | 9.3 (H)Comment: Testing | 0.5 - 3.6 ng/mL | EXTERNAL | | | | performed at [facility];888 | | LAB | | | | [facility];[place], [place] | | | | | | [address] | | | | + + + [...] EXTERNAL | | | | performed at [facility];888 | uIU/mL | LAB | | | | [address];[place] | | | | | | [address] | | | | + + + [...] EXTERNAL | | | | performed at [facility];888 | | LAB | | | | [address];[place], [place] | | | | | | [address] | | | | + + + [...] (500), | | | | | | copy editor TERESE NINA (2) | | | [...]
--- OUTSIDE RECORDS SUMMARY | ~2020-04-13 | XMS | Encounter Summary ---
Demographics + + + | Address | [address] | | | [place] [address] | + + + | Home Phone [...] Providers + +------+ + | Care Director Trading Name | Role | Phone | + [...] [place] | | | | | | [address] | [address] Phone: | | | | | | Phone: | [phone] | | | | | | [phone] | Fax: | | | | | | Fax: | [phone] | | | | | | [phone] | | +--------+ + + + + [...] | diurnal enuresis | | | | [place], [place] | [place], [place] | (Primary Dx); BPH | | | | [address] | [address] | with | | | | [phone] | | obstruction/lower | | | | [...] had his license revoked by the [facility]. He has us ed marijuana for [...] CLASSIFIED ELSEWHERE (12/15/2010); Ulcerative colitis ([facility]); Ches t pain; SINUS BRADYCARDIA; HEPATITIS B; PUD; FATTY LIVER DISEASE; SUBSTANCE ABUSE, MULTIPLE; Preventative health care (06/26/2013); Bladder troubles; Tuberculosis; Anginal pain ([facility]); St roke ([facility]); Prostate troubles; and Neurological disorder. Past [...] needed for Chest pain. 25 tablet 12 [place]-3 Fatty Acids (SALMON OIL-1000 PO) CAPS, one capsule by mouth daily twice daily ONE TOUCH DELICA [facility] [...] Date/Time: 04/22/2012 16:56 Transcribed Date/Time: 04/22/2012 17:32 Pharmacy Messenger: <Electronically Signed by Jama Solis MD> 04/23/12 [...] Date/Time: 04/23/2012 10:54 Transcribed Date/Time: 04/23/2012 11:06 Pharmacy Messenger: <Electronically Signed by Jama Solis MD> 04/24/12 5566 IMPRESSION: 1. Nocturnal and diurnal enuresis. I [...] bladder, still believe that the recommendations from [facility] neurosurgeon, Dr. Demarco, on 03/13/2014 [...] have not thoroughly proofread this note, and braided band assembler erro rs may occur. CC: Kirk French [...] | | | | | | [place] [address] | | | | | | [phone] | | | | | | | | +--------+ + + + + | 05/01/ | Procedure | Cardiology | | | | 2019 | visit | | | | +--------+ + + + + | 05/01/ | Office | Cardiology | Silvia, | | | 2019 | Visit | | PARISA Vernon [address] | | | | | | [place], | | | | | | [place] [address] | | | | | | [phone] | | | | | | | | +--------+ + + + + | 05/21/ | Implant | Cardiology | Daljit Singletary, | Remote Device | | 2019 | Monitor | | [address] [place] | Interrogation | | | | | [place], | (Primary Dx); | | | | | [place] [address] | Pacemaker; | | | | | [phone] | Sinoatrial node | | | | [...] 1.001 - 1.030 | | | | [place], | | | | | | UA, [...]
--- OUTSIDE RECORDS SUMMARY | ~2020-04-13 | XMS | Encounter Summary ---
Demographics + + + | Address | [address] [place] [address] [address] | | | [place] [address] | + + + | Home Phone [...] [place] | | | | | [address] | | + + + + + Care Team Providers + +------+ + | Care Sales Department Clerk Name | Role | Phone | [...] Yao | | | | | at [facility] | [facility] | | | | | [address] | [place] [address] | | | | | [address] | | | | | | [place], [address] [place] [address] | | | | | | [place], [place] | | | | | | [address] | | | | | | [phone] | | | +--------+ + + + [...] view image for the detailed interpretation from [employer] results. | CARDIOLOGY | + + + + + + + + | Performing | Address | City/State/Zipcode | Phone Number | | Organization | | | | + + + + + | [facility] | [address] | [place], [place] | | | CARDIOLOGY | [address] | [address] | | + + + + + documented in this encounter Visit Diagnoses Not on filedocumented in this encounter"
--- OUTSIDE RECORDS SUMMARY | ~2020-04-13 | XMS | Encounter Summary ---
Demographics + + + | Address | [address] | | | [place] [address] | + + + | Home Phone [...] Team Providers + +------+ + | Care [facility] Name | Role | Phone | + [...] | | CARDIOLOGY [address] | SUPERVISOR LOOPING [address] | | | | | [place], | [place], [place] | | | | | [place] [address] | [address] | | | | | [phone] | | | +--------+ + + + [...] | | | | | | [place] [address] | | | | | | [phone] | | | | | | | [...] | | | | | | [place] [address] | | | | | | [phone] | | | | | | | | +--------+ + + + + | 05/21/ | Implant | Cardiology | Daljit Singletary, | Remote Device | 2019 | Monitor | | MD Chiquis [address] | Interrogation | | | | | [place], | (Primary Dx); | | | | | [place] [address] | Pacemaker; | | | | | [phone] | Sinoatrial node | | | | | | dysfunction (HCC) | | | | | | with symptomatic | | | | | | bradycardia | +--------+ + + + + documented as of this encounter Visit Diagnoses Not on filedocumented in this encounter"
--- OUTSIDE RECORDS SUMMARY | ~2020-04-13 | XMS | Encounter Summary ---
Demographics + + + | Address | [address] | | | [place] [address] | + + + | Home Phone [...] Team Providers + +------+ + | Care Hardware Press Operator Name | Role | Phone | + +------+ + PCP | Unavailable | + +------+ + Encounter Details +--------+ + + + + | Date | Type | Department | Care Team | Description | +--------+ + + + + | 11/05/ | [facility] | [facility] | Naresh Mckeon | | | 2009 | Encounter | MED CTR SLEEP | MD Chaya [address] | | | | | CENTER [address] | [address] [place] | | | | | [place] | [place] [address] | | | | | [address] | [phone] | | | | | [phone] | | | +--------+ + + + [...] | | | | | | [place] [address] | | | | | | [phone] | | | | | | | [...] | | | | | | [place] [address] | | | | | | [phone] | | | | | | | | +--------+ + + + + | 05/21/ | Implant | Cardiology | Daljit Singletary, | Remote Device | 2019 | Monitor | | MD [address] [place] | Interrogation | | | | | [place], | (Primary Dx); | | | | | [place] [address] | Pacemaker; | | | | | [phone] | Sinoatrial node | | | | | | dysfunction (HCC) | | | | | | with symptomatic | | | | | | bradycardia | +--------+ + + + + documented as of this encounter Visit Diagnoses Not on filedocumented in this encounter"
--- OUTSIDE RECORDS SUMMARY | ~2020-04-13 | XMS | Encounter Summary ---
Demographics + + + | Address | [address] | | | [place] [address] | + + + | Home Phone [...] Providers + +------+ + | Care Numerical Control Lathe Operator Name | Role | Phone | + +------+ + | Kirk French MD | PCP | | + +------+ + Encounter Details +--------+ + + + + | Date | Type | Department | Care Team | Description | +--------+ + + + + | 07/05/ | Hospital | [facility] MEDICAL | Conversion | Acute neck pain | | 2017 | Encounter | [facility] XRAY | Transaction, | | | | | [address] | Provider Unknown | | | | | [address] [place], [place] | [phone] | | | | | [address] | | | | | | [phone] | Apolonia Ruano | | | | | | MD Shelly [address] | | | | | | [address] | | | | | | [place], [place] | | | | | | [address] | | | | | | [phone] | | | | | | | [...] + + + +---------+ + + | [place]-3 Fatty | CAPS, one capsule by [...] | | | | | | [place] [address] | | | | | | [phone] | | | | | | | | +--------+ + + + + | 05/01/ | Procedure | Cardiology | | | | 2019 | visit | | | | +--------+ + + + + | 05/01/ | Office | Cardiology | Silvia, | | | 2019 | Visit | | PARISA Vernon [address] | | | | | | [place], | | | | | | [place] [address] | | | | | | [phone] | | | | | | | | +--------+ + + + + | 05/21/ | Implant | Cardiology | Daljit Singletary, | Remote Device | 2019 | Monitor | | [address] [facility] | Interrogation | | | | | [place], | (Primary Dx); | | | | | [place] [address] | Pacemaker; | | | | | [phone] | Sinoatrial node | | | | [...]
--- OUTSIDE RECORDS SUMMARY | ~2020-04-13 | XMS | Encounter Summary ---
Demographics + + + | Address | [address] | | | [place] [address] | + + + | Home Phone [...] + +------+ + | Care Accounts Payable Assistant Name | Role | Phone | [...] | | | pain | [address] | [address] | | | | | Procedures | [place] | [place], | | | | | [place] Nuclear | [place], [place] | [place] | | | | | Stress Test | [address] | [address] | | | | | (Vasodilator | Phone: | Phone: | | | | | ) CHG | [phone] | [phone] | | | | | MYOCARDIAL | Fax: | Fax: | | | | | SPECT | [phone] | [phone] | | | | | MULTIPLE | [...] 2012 | | CARDIOLOGY [address] | SODA FLAKER [address] | interactions, chest | | | | [place], | [place], [place] | pain) | | | | [place] [address] | [address] | | | | | [phone] | | | +--------+ + + + [...] | | | | | | [place] [address] | | | | | | [phone] | | | | | | | [...] | | | | | | [place] [address] | | | | | | [phone] | | | | | | | | +--------+ + + + + | 05/21/ | Implant | Cardiology | SunshinecherelleDaljit, | Remote Device | | 2019 | Monitor | | MD [address] [place] | Interrogation | | | | | [place], | (Primary Dx); | | | | | [place] [address] | Pacemaker; | | | | | [phone] | Sinoatrial node | | | | [...] [facility] | [place] | | Department [address] [facility] [place] | [place] | | [ rep [address]] [ rep [facility] | | [facility]] Signed | - IMAGING | | | | | Patient Name: MOE GAY | | | Physician: JACKLYN : 1960 Age: 53 Sex: M Unit | | | #: [id number] Exam Date: 12/06/13 Location: | | | [facility] Report #: [id number] Page: | | | %(RAD)RES..mtdd.print.filter("pg") of %(RAD) | | | RES..mtdd.print.filter("tpg") | | | | | | Accession Number: [id number] | | | PERSANTINE SESTAMIBI STRESS TEST, [...] Transcribed Date/Time: 12/07/2013 08:18 | | | Church Business Administrator: <<Signature on File>> | | | | | | Daljit Singletary MD [facility]12/07/13 1321 <Electronically signed | | | by Daljit Singletary MD, FAC, FACP, FASNanette, [facility]> Daljit | | | MD Gemini [facility] 12/07/13 0701 Church Business Administrator: [employer] | | | Nodqyuwgjypdx30/16/14 0818 PARISA Garcia | | + + + + + + + + | Performing | Address | City/State/Zipcode | Phone Number | | Organization | | | | + + + + + | [facility] | [address] | [place] | [phone] | | [facility] | | [address] | | | - IMAGING | | | | + + + + + documented in this encounter Visit Diagnoses + + | Diagnosis | + + | Other chest pain - Primary | + + documented in this encounter
--- OUTSIDE RECORDS SUMMARY | ~2020-04-13 | XMS | Encounter Summary ---
Demographics + + + | Address | [address] | | | [place] [address] | + + + | Home Phone [...] Providers + +------+ + | Care Manager Ed Name | Role | Phone | + +------+ + | Kirk French MD | PCP | | + +------+ + Encounter Details +--------+ + + + + | Date | Type | Department | Care Team | Description | +--------+ + + + + | 11/16/ | Hospital | [facility] | Kirk French | Aneurysm (HCC) | | 2017 | Encounter | MED CTR ULTRASOUND | D, MD [address] | | | | | [address] [place] | [address] | | | | | [place], [place] | [place] [address] | | | | | [address] | [phone] | | | | | [phone] | | | | | | | [...] + + + +---------+ + + | [place]-3 Fatty | CAPS, one capsule by | [...] | | | | | | [place] [address] | | | | | | [phone] | | | | | | | [...] | | | | | | [place] [address] | | | | | | [phone] | | | | | | | | +--------+ + + + + | 05/21/ | Implant | Cardiology | Daljit Singletary, | Remote Device | | 2020 | Monitor | | [facility] | Interrogation | | | | | [place], | (Primary Dx); | | | | | [place] [address] | Pacemaker; | | | | | [phone] | Sinoatrial node | | | | [...] Screening | Imaging | Routin | Aneurysm ([facility]) | 1 Occurrences | | | | e | | starting 11/16/2017 | | | | | | until 11/16/2017 | + +---------+--------+ + + documented as of this encounter Visit Diagnoses + + | Diagnosis | + + | Aneurysm (HCC) Aneurysm of unspecified site | + + documented in this encounter"
--- OUTSIDE RECORDS SUMMARY | ~2020-04-13 | XMS | Encounter Summary ---
Demographics + + + | Address | [address] | | | [place] [address] | + + + | Home Phone [...] Providers + +------+ + | Care Bean Sprout Laborer Name | Role | Phone | [...] | Ascending | Silvia, | [address] [place] | | | | | aortic | Janeen, LEASE EXAMINER | [place], | | | | | aneurysm | [address] | [place] | | | | | ([facility] | [place] | [address] | | | | | Procedures | [place], | Phone: | | | | | ECHO | [place] | [phone] | | | | | Complete | [address] | Fax: | | | | | | Phone: | [phone] | | | | | | [phone] | | | | | | | Fax: | | | | | | | [phone] | | + +--------+ + + + [...] | MD [address] | [address] | | | | | hypertension | [address] | [place], | | | | | Sick sinus | [address] | [place] | | | | | syndrome | [place], [place] | [address] | | | | | (HCC) | [address] | Phone: | | | | | Ventricular | Phone: | [phone] | | | | | premature | [phone] | Fax: | | | | | depolarizati | Fax: | [phone] | | | | | on | [phone] | | | | | | Tachycardia, | | | | | | | unspecified | | | | | | | | | | | | | | Atherosclero | | | | | | | tic heart | | | | | | | disease of | | | | | | | [place] | | | | | | | [...] + + | 01/01/ | Office | [facility] | Twain, | Ascending thoracic | | 2020 | Visit | CARDIOLOGY [address] | PARISA Vernon [address] | aortic aneurysm | | | | [place], | [place], | (HCC) (Primary Dx); | | | | [place] [address] | [place] [address] | Coronary artery | | | | [phone] | [phone] | disease involving | | | | [...] encounter Patient Instructions Patient Instructions Vidhi Gillespie, Human Resources Services Specialist - 01/01/2020 7:30 AM PST1. Esau [...] of critical coronary artery disea se involving [place] coronary artery of [place] heart without angina pectoris, essential hyper tension, [...] for weight loss, he was defer to [facility], [facility] [...] Preventative health care Coronary artery disease involving [place] coronary artery of [place] heart without angina pectoris Cannabis abuse, daily [...] mg capsule Take 25 mg by mouth. [place]-3 Fatty Acids (SALMON OIL-1000 PO) CAPS, one capsule by mouth daily twice daily ondansetron (ZOFRAN ODT) 4 mg disintegrating tablet Take 4 mg by mouth every 8 hours as needed for Nausea. ondansetron (ZOFRAN) 4 mg tablet Take 4 mg by mouth. [facility] TOUCH [facility] Check glucose as needed for hypoglycemia [...] was found Confirmed by GURJIT WINKLER, SYDNI ([id number]) on 06/06/2019 3:43:10 PM LAB RESULTS reviewed [...] BNP 48 06/02/2019 I reviewed records from [facility] for office visit on 06/06/2019 wh ich is summarized in the HPI. RESULTS- I reviewed reports from [facility]: No results found. Above data and testing is reviewed this visit; testing below is historical data unless othe rwise specified. ASSESSMENT: 1. Non-critical Coronary artery disease involving [place] coronary artery of [place] heart [facility] angina pectoris: A.Normal exercise sestamibi stress [...] performed by Dr Juan Diego Gambino at [facility] on 01/30/2013.Patient had spontaneous PVC'sfr om [...] to go back in 3 days to [place] for an attempt of ablation under general [...] advised to having his MRI done in [place] at [facility] which has a repeat MRI protocol for [...] advised to having his MRI done in [place] at [facility] which has a repeat MRI protocol for such situations. Patient also will need echocardiogram for his next appointmen t to evaluate his ascending aorta Vidhi Clemente, Human Resources Services Specialist am acting as a scribe on behalf of, and in the prese nce of PARISA Lomas. - Vidhi Gillespie, Human Resources Services Specialist 01/01/2020 5:29 PM I, PARISA Lomas, personally performed the services described in this documentati on, as scribed in my presence and it is both accurate and complete. -PARISA Lomas 01/01/2020 Portions of this chart may have been created with [employer] voice recognition software. Occasi onal wrong-word or [...] | | | | | | [place] [address] | | | | | | [phone] | | | | | | | [...] | | | | | | [place] [address] | | | | | | [phone] | | | | | | | | +--------+ + + + + | 05/21/ | Implant | Cardiology | Sydni Singletary, | Remote Device | | 2019 | Monitor | | [address] [place] | Interrogation | | | | | [place], | (Primary Dx); | | | | | [place] [address] | Pacemaker; | | | | | [phone] | Sinoatrial node | | | | [...]
--- OUTSIDE RECORDS SUMMARY | ~2020-04-13 | XMS | Encounter Summary ---
Demographics + + + | Address | [address] | | | [place] [address] | + + + | Home Phone [...] Team Providers + +------+ + | Care Legislators Name | Role | Phone | + [...] + + | 12/29/ | [facility] | [facility] | [place], | Ascending thoracic | | 2017 | Visit | CARDIOLOGY [address] | PARISA Vernon [address] | aortic aneurysm | | | | [place], | [place], | (HCC) (Primary Dx); | | | | [place] [address] | [place] [address] | Coronary artery | | | | [phone] | [phone] | disease involving | | | | | | [place] coronary | | | | | | artery of [place] | | | | | | heart [...] of non-critical coronary artery d isease involving [place] coronary artery of [place] heart without angina pectoris, essential h ypertension, [...] start Losartan 25 mg once every day, [employer] blood pressure log, and follow up in 3 months. Since that time, he went to the ER in [facility] with chest pain at the end of [...] Preventative health care Coronary artery disease involving [place] coronary artery of [place] heart without angina pectoris Cannabis abuse, daily [...] 3RD DOSE, CALL 911 100 tablet 3 [place]-3 Fatty Acids (SALMON OIL-1000 PO) CAPS, [...] was found Confirmed by SYDNI SINGLETARY MD ([id number]) on 06/23/2016 2:08:15 PM LAB RESULTS reviewed [...] 129* 05/12/2016 I reviewed records from [facility] for office visit on 09/01/2016 which is [...] He is in class I of the [place] Heart Association functional class. On physical examination there are no signs of fl uid overload. 2. Non-critical Coronary artery disease involving [place] coronary a rtery of [place] heart without angina pectoris: A. Normal exercise [...] to go back in 3 days to [place] for an attempt of ablation under general [...] is a normal stable device function. Estimated Pingboardi ng battery longevity is 5 years.. 5. [...] this chart may have been created with [employer] voice recognition software. Occasi onal wrong-word or [...] | | | | | | [place], | | | | | | [place] [address] | | | | | | [phone] | | | | | | | | +--------+ + + + + | 05/01/ | Procedure | Cardiology | | | | 2019 | visit | | | | +--------+ + + + + | 05/01/ | Office | Cardiology | Silvia | | | 2019 | Visit | | PARISA [place] [address] | | | | | | [place], | | | | | | [place] [address] | | | | | | [phone] | | | | | | | | +--------+ + + + + | 05/21/ | Implant | Cardiology | Sydni Singletary, | Remote Device | 2019 | Monitor | | MD [address] [place] | Interrogation | | | | | [place], | (Primary Dx); | | | | | [place] [address] | Pacemaker; | | | | | [phone] | Sinoatrial node | | | | [...] + + | Coronary artery disease involving [place] coronary artery of [place] heart without | | angina pectoris | + + | Essential hypertension with goal blood pressure less than 130/80 | + + | Hyperlipidemia, mixed Mixed hyperlipidemia | + + documented in this encounter
--- OUTSIDE RECORDS SUMMARY | ~2020-04-13 | XMS | Encounter Summary ---
Demographics + + + | Address | [address] | | | [place] [address] | + + + | Home Phone [...] Providers + +------+ + | Care Sole Splitter Name | Role | Phone | [...] + | 01/25/ | Telephone | [facility] | Daljit Singletary, | Appointment | | 2017 | | CARDIOLOGY [address] | MD [address] [place] | | | | | [place], | [place], | | | | | [place] [address] | [place] [address] | | | | | [phone] | [phone] | | | | | | | [...] W | | | | | | [place], | | | | | | [place] [address] | | | | | | [phone] | | | | | | | | +--------+ + + + + | 05/01/ | Procedure | Cardiology | | | | 2019 | visit | | | | +--------+ + + + + | 05/01/ | Office | Cardiology | Silvia, | | | 2019 | Visit | | PARISA Vernon [address] | | | | | | [place], | | | | | | [place] [address] | | | | | | [phone] | | | | | | | | +--------+ + + + + | 05/21/ | Implant | Cardiology | Daljit Singletary, | Remote Device | | 2019 | Monitor | | [address] [facility] | Interrogation | | | | | [address] [place], | (Primary Dx); | | | | | [place] [address] | Pacemaker; | | | | | [phone] | Sinoatrial node | | | | | | dysfunction (HCC) | | | | | | with symptomatic | | | | | | bradycardia | +--------+ + + + + documented as of this encounter Visit Diagnoses Not on filedocumented in this encounter"
--- OUTSIDE RECORDS SUMMARY | ~2020-04-13 | XMS | Encounter Summary ---
Demographics + + + | Address | [address] | | | [place] [address] | + + + | Home Phone [...] Providers + +------+ + | Care Energy Systems Laboratory Director Name | Role | Phone | [...] + + | 06/25/ | Office | [facility] | [place], | SINUS BRADYCARDIA | | 2013 | Visit | CARDIOLOGY [address] | PARISA [place] [address] | (Primary Dx); | | | | [place], | [place], | Symptomatic PVCs; | | | | [place] [address] | [place] [address] | Coronary artery | | | | [phone] | [phone] | disease; | | | | | [...] time, he was admitted over observation at [facility] for a chest pain. Aortogram revealed [...] needed for Chest pain. 25 tablet 12 [place]-3 Fatty Acids (SALMON OIL-1000 PO) CAPS, one [...] HGBEX 16.1 01/25/2014 I reviewed records from [facility] for emergency department visit o n [...] cannot completely be ruled out. [facility] 12/25/13, shows non critical coronary artery [...] to go back in 3 days to [place] for an attempt of ablation under general [...] made to ensure accuracy; however, inadvertent computerized vault person errors may be pre sent. Electronically signed [...] W | | | | | | [place], | | | | | | [place] [address] | | | | | | [phone] | | | | | | | | +--------+ + + + + | 05/01/ | Procedure | Cardiology | | | | 2019 | visit | | | | +--------+ + + + + | 05/01/ | Office | Cardiology | Silvia, | | | 2019 | Visit | | PARISA Vernon W | | | | | | [place], | | | | | | [place] [address] | | | | | | [phone] | | | | | | | | +--------+ + + + + | 05/21/ | Implant | Cardiology | Daljit Singletary, | Remote Device | 2019 | Monitor | | MD [address] [place] | Interrogation | | | | | St[address] [place], | (Primary Dx); | | | | | [place] [address] | Pacemaker; | | | | | [phone] | Sinoatrial node | | | | [...] of unspecified type of vessel, | | [place] or graft | + + | Hypertension Unspecified essential hypertension | + + | Syncope Syncope and collapse | + + | Hyperlipidemia Other and unspecified hyperlipidemia | + + documented in this encounter
--- OUTSIDE RECORDS SUMMARY | ~2020-04-13 | XMS | Encounter Summary ---
Demographics + + + | Address | [address] | | | [place] [address] | + + + | Home Phone [...] Providers + +------+ + | Care Veterinarian Name | Role | Phone | + +------+ + | Kirk French MD | PCP | | + +------+ + Encounter Details +--------+ + + + + | Date | Type | Department | Care Team | Description | +--------+ + + + + | 06/03/ | Hospital | [facility] [place] [place] GENERIC IP | Conversion | Back pain, | | 2014 | Encounter | CONVERSION DEP [address] | Transaction, | unspecified location | | | | [address] | Provider Unknown | | | | | [place], [place] | [phone] | | | | | [address] | (Fax) | | | | | [phone] | | | +--------+ + + + [...] | | | | | | | #[id number], exp 07/2016 | | | | | [...] | | | | | | [place] [address] | | | | | | [phone] | | | | | | | | +--------+ + + + + | 05/01/ | Procedure | Cardiology | | | | 2019 | visit | | | | +--------+ + + + + | 05/01/ | Office | Cardiology | Silvia, | | | 2019 | Visit | | PARISA Vernon [address] | | | | | | [place], | | | | | | [place] [address] | | | | | | [phone] | | | | | | | | +--------+ + + + + | 05/21/ | Implant | Cardiology | Daljit Singletary, | Remote Device | | 2019 | Monitor | | [address] [facility] | Interrogation | | | | | [place], | (Primary Dx); | | | | | [place] [address] | Pacemaker; | | | | | [phone] | Sinoatrial node | | | | [...]
--- OUTSIDE RECORDS SUMMARY | ~2020-04-13 | XMS | Encounter Summary ---
Demographics + + + | Address | [address] | | | [place] [address] | + + + | Home Phone [...] + | 06/19/ | Orders Only | [facility] | Fabrice Hylton, | Abnormal weight | | 2019 | | SYSTEM GENERIC OP | MD [address] | loss; Anxiety | | | | CONVERSION [address] | [address] [place], [place] | disorder; Chronic | | | | [address] [place], [place] | [address] | pain syndrome; | | | | [address] | | Obesity; Neuralgia | | | | [phone] | | and neuritis, | | | [...] | | | | | | [place] [address] | | | | | | [phone] | | | | | | | [...] | | | | | | [place] [address] | | | | | | [phone] | | | | | | | | +--------+ + + + + | 05/21/ | Implant | Cardiology | Daljit Singletary, | Remote Device | 2019 | Monitor | | [address] [place] | Interrogation | | | | | [place], | (Primary Dx); | | | | | [place] [address] | Pacemaker; | | | | | [phone] | Sinoatrial node | | | | [...]
--- OUTSIDE RECORDS SUMMARY | ~2020-04-13 | XMS | Encounter Summary ---
Demographics + + + | Address | [address] | | | [place] [address] | + + + | Home Phone [...] + +------+ + | Care Supply Chain Planner Name | Role | Phone | [...] | CARDIOLOGY [address] | MD [address] [facility] [place] | | | | | [place], | [place], | | | | | [place] [address] | [place] [address] | | | | | [phone] | | | | | | | [...] | | | | | | [place] [address] | | | | | | [phone] | | | | | | | | +--------+ + + + + | 05/01/ | Procedure | Cardiology | | | | 2019 | visit | | | | +--------+ + + + + | 05/01/ | Office | Cardiology | Silvia, | | | 2019 | Visit | | PARISA Vernon [address] | | | | | | [place], | | | | | | [place] [address] | | | | | | [phone] | | | | | | | | +--------+ + + + + | 05/21/ | Implant | Cardiology | Daljit Singletary, | Remote Device | 2019 | Monitor | | [address] [facility] | Interrogation | | | | | [place], | (Primary Dx); | | | | | [place] [address] | Pacemaker; | | | | | [phone] | Sinoatrial node | | | | | | dysfunction (HCC) | | | | | | with symptomatic | | | | | | bradycardia | +--------+ + + + + documented as of this encounter Visit Diagnoses Not on filedocumented in this encounter"
--- OUTSIDE RECORDS SUMMARY | ~2020-04-13 | XMS | Encounter Summary ---
Demographics + + + | Address | [address] | | | [place] [address] | + + + | Home Phone [...] Team Providers + +------+ + | Care Charity Fundraiser Name | Role | Phone | + [...] | | CARDIOLOGY [address] | Janeen, SENIOR ENGINEERING ASSOCIATE [address] | reading) | | | | [place], | [place], | | | | | [place] [address] | [place] [address] | | | | | [phone] | [phone] | | | | | | | [...] W | | | | | | [place], | | | | | | [place] [address] | | | | | | [phone] | | | | | | | | +--------+ + + + + | 05/01/ | Procedure | Cardiology | | | | 2019 | visit | | | | +--------+ + + + + | 05/01/ | Office | Cardiology | Silvia, | | | 2019 | Visit | | PARISA Vernon [address] | | | | | | [place], | | | | | | [place] [address] | | | | | | [phone] | | | | | | | | +--------+ + + + + | 05/21/ | Implant | Cardiology | Daljit Singletary, | Remote Device | | 2019 | Monitor | | [facility] | Interrogation | | | | | [place], | (Primary Dx); | | | | | [place] [address] | Pacemaker; | | | | | [phone] | Sinoatrial node | | | | | | dysfunction (HCC) | | | | | | with symptomatic | | | | | | bradycardia | +--------+ + + + + documented as of this encounter Visit Diagnoses Not on filedocumented in this encounter"
--- OUTSIDE RECORDS SUMMARY | ~2020-04-13 | XMS | Encounter Summary ---
Demographics + + + | Address | [address] | | | [place] [address] | + + + | Home Phone [...] Providers + +------+ + | Care Low Altitude Air Defense Gunner Name | Role | Phone | + +------+ + | Michael Amanda DO | PCP | | + +------+ + Encounter Details +--------+ + + + + | Date | Type | Department | Care Team | Description | +--------+ + + + + | 07/30/ | Abstract | [facility] | Michael Amanda, | | | 2013 | | [facility] | DO [address] | | | | | [address] | [place] | | | | | [place] | [address] | | | | | [address] | | | | | | [phone] | | | +--------+ + + + [...] | | | | | | [place] [address] | | | | | | [phone] | | | | | | | | +--------+ + + + + | 05/01/ | Procedure | Cardiology | | | | 2019 | visit | | | | +--------+ + + + + | 05/01/ | Office | Cardiology | Silvia, | | | 2019 | Visit | | PARISA Vernon [address] | | | | | | [place], | | | | | | [place] [address] | | | | | | [phone] | | | | | | | | +--------+ + + + + | 05/21/ | Implant | Cardiology | Daljit Singletary, | Remote Device | | 2019 | Monitor | | [address] | Interrogation | | | | | [place], | (Primary Dx); | | | | | [place] [address] | Pacemaker; | | | | | [phone] | Sinoatrial node | | | | [...] [address] | [place] | [phone] | | [facility] | | [address] | | | - LABORATORY | | | | + + + + + | [address] | [address] | [place] | | | [facility] | | [address] | | | [...] | | | | | | | [place] Islander, | | | | | | [...]
--- OUTSIDE RECORDS SUMMARY | ~2020-04-13 | XMS | Encounter Summary ---
Demographics + + + | Address | [address] | | | [place] [address] | + + + | Home Phone [...] Providers + +------+ + | Care Director Electrical Engineering Name | Role | Phone | [...] 2014 | | CARDIOLOGY [address] | LITIGATION DOCKET MANAGER [address] | | | | | [place], | [place], [place] | | | | | [place] [address] | [address] | | | | | [phone] | | | +--------+ + + + [...] | | | | | | [place], | | | | | | [place] [address] | | | | | | [phone] | | | | | | | | +--------+ + + + + | 05/01/ | Procedure | Cardiology | | | | 2019 | visit | | | | +--------+ + + + + | 05/01/ | Office | Cardiology | Silvia, | | | 2019 | Visit | | PARISA Vernon [address] | | | | | | [place], | | | | | | [place] [address] | | | | | | [phone] | | | | | | | | +--------+ + + + + | 05/21/ | Implant | Cardiology | Daljit Singletary, | Remote Device | | 2019 | Monitor | | [address] [facility] | Interrogation | | | | | [place], | (Primary Dx); | | | | | [place] [address] | Pacemaker; | | | | | [phone] | Sinoatrial node | | | | | | dysfunction (HCC) | | | | | | with symptomatic | | | | | | bradycardia | +--------+ + + + + documented as of this encounter Visit Diagnoses Not on filedocumented in this encounter"
--- OUTSIDE RECORDS SUMMARY | ~2020-04-13 | XMS | Encounter Summary ---
Demographics + + + | Address | [address] | | | [place] [address] | + + + | Home Phone [...] Team Providers + +------+ + | Care Selling Underwriter Name | Role | Phone | [...] | 04/10/ | Telephone | [facility] | Matthew Uriarte | Surgery Appointment | | 2019 | | [address] | MD Tawanna [address] | | | | | [place] | [place] | | | | | [address] | [address] | | | | | [phone] | | | +--------+ + + + [...] | | | | | | [place] [address] | | | | | | [phone] | | | | | | | | +--------+ + + + + | 05/01/ | Procedure | Cardiology | | | | 2019 | visit | | | | +--------+ + + + + | 05/01/ | Office | Cardiology | Silvia, | | | 2019 | Visit | | PARISA Vernon [address] | | | | | | [place], | | | | | | [place] [address] | | | | | | [phone] | | | | | | | | +--------+ + + + + | 05/21/ | Implant | Cardiology | Daljit Singletary, | Remote Device | | 2019 | Monitor | | [address] [facility] | Interrogation | | | | | [place], | (Primary Dx); | | | | | [place] [address] | Pacemaker; | | | | | [phone] | Sinoatrial node | | | | | | dysfunction (HCC) | | | | | | with symptomatic | | | | | | bradycardia | +--------+ + + + + documented as of this encounter Visit Diagnoses Not on filedocumented in this encounter"
--- OUTSIDE RECORDS SUMMARY | ~2020-04-13 | XMS | Encounter Summary ---
Demographics + + + | Address | [address] | | | [place] [address] | + + + | Home Phone [...] Team Providers + +------+ + | Care Platinum And Palladium Kettle Tender Name | Role | Phone | + +------+ + | Kirk French MD | PCP | | + +------+ + Encounter Details +--------+ + + + + | Date | Type | Department | Care Team | Description | +--------+ + + + + | 01/05/ | Hospital | [facility] | Emmanuel Daniel MD | Functional diarrhea | | 2019 | Encounter | MED CTR MP INTRA OP | [address], [place] | (Primary Dx); Weight | | | | [address] | [address] [place], [place] | loss | | | | [place], [place] | [address] | | | | | [address] | | | | | | [phone] | | | +--------+ + + + [...] for a few hours. Date Last Reviewed: 09/22/201619997611-3430 [employer] [address] [place] [address], [place] [address]. All righ ts reserved. This information is [...] vomiting, or vomiting blood Date Last Reviewed: 05/22/201619991375-9723 [employer] [address] [place] [address]. All [facility] ts reserved. This information is [...] You can't be awakened Date Last Reviewed: 09/08/201619996553-8567 [employer] [address] [place] [address], [place] [address]. All righ ts reserved. This information is [...] + + + +---------+ + + | [place]-3 Fatty | CAPS, one capsule by | [...] | | | | | | [place] [address] | | | | | | [phone] | | | | | | | [...] | | | | | | [place] [address] | | | | | | [phone] | | | | | | | | +--------+ + + + + | 05/21/ | Implant | Cardiology | Daljit Singletary, | Remote Device | 2019 | Monitor | | [address] | Interrogation | | | | | [place], | (Primary Dx); | | | | | [place] [address] | Pacemaker; | | | | | [phone] | Sinoatrial node | | | | [...] | REFERENCE LAB | | [place] [id number] Med Dir: Miguel Galarza MD, Phone: | [facility] | | [phone] | | + + + + + + + + | Performing | Address | City/State/Zipcode | Phone Number | | Organization | | | | + + + + + | REFERENCE LAB | [address] | [place], [place] | [phone] | | [facility] | [address] | [address] | | + + + + + [...] [address], | REFERENCE LAB | | [place], [place] [id number] Med Dir: Miguel Galarza MD, Phone: | [facility] | | [phone] | | + + + + + + + + | Performing | Address | City/State/Zipcode | Phone Number | | Organization | | | | + + + + + | REFERENCE LAB | [address] | [place], [place] | [phone] | | [facility] | [facility] | [address] | | + + + + + [...] [address] | [place] | [phone] | | [facility] | | [address] | | | - LABORATORY | | [...] [address] | [place] | [phone] | | [facility] | | [address] | | | - LABORATORY | | [...] [address] | [place] | [phone] | | [facility] | | [address] | | | - LABORATORY | | [...] | | Antigen, | | | [facility] | | | Stool | | [...] [address] | [place] | [phone] | | [facility] | | [address] | | | - LABORATORY | | [...] + | [facility] | [address] | [place], [place] | [phone] | | [facility] | | [address] | | | [...] [address] | [place] | [phone] | | [facility] | | [address] | | | - LABORATORY | | | | + + + + + EGD (01/05/2019 8:36 AM PST) + + | Specimen | + + | | + + + + -+ | Narrative | Performed At | + + -+ | | [facility] | | GastroenterologyPatient Name: Moe SanchezProcedpasha Date: | PROVATION | | 01/05/2019 8:36 AMMRN: [id number] #: [id number] of : | | | 9Admit Type: AmbulatoryAge: 58Room: [facility] 01Gender: MaleNote | | | Status: FinalizedAttending MD: Emmanuel Daniel , MDProcedure: | | | Upper GI endoscopyIndications: Diarrhea, Weight | | | lossProviders: Emmanuel Daniel MD, Heidi Mixon Henry, | | | RN, Kim Hicks, Tunneller, | | | Jarett Barakat MD (Anesthesia [...] physician, the nurse, the anesthesiologist and the central sterilization technician | | | in the endoscopy [...] | | Imaging was performed using the [employer] | | | Endoscopy (FICE) [...] Scope In: 8:43:57 AMScope Out: 8:49:50 AM [facility]. | | | [facility], [address] [place] [address] | | | [phone] | | |Recommendation: | | | - [...] |Scope Out: 8:49:50 AM | | | [facility]. [facility], [facility] [address] [place], [place] | | | [address] | | + + -+ + +---------+ [...] | PROVATION | | 01/05/2019 8:36 AMMRN: [id number] #: [id number] of : | | | 9Admit Type: AmbulatoryAge: 58Room: [facility] 01Gender: MaleNote | | | Status: FinalizedAttending MD: Emmanuel Daniel , MDProcedure: | | | ColonoscopyIndications: Clinically significant diarrhea of | | | unexplained origin, Weight lossProviders: | | | Emmanuel Daniel MD, Heidi An RN, Kim | | | Fiorella Hicks, Tunneller, Jarett Alejo | | | MD Roshni [...] | | | the anesthesiologist and the central sterilization technician in the endoscopy suite. 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 [facility]:cox branson:C3NR GROSS DESCRIPTION: A. The | | | specimen, labeled "[place], duodenal biopsy" is received in formalin | | | and consists of seven 0.1-0.5 cm lin fragments. Entirely submitted in | | | (A1). B. The specimen, labeled "[place], right colon" is received | | | in formalin and consists of six 0.2-0.3 cm lin fragments. Entirely | | | submitted in (B1). C. The specimen, labeled "[place], left colon" | | | is received in formalin and consists of six 0.2-0.3 cm lin-pink | | | fragments. Entirely submitted in (C1). am:AMB:portillo PERFORMING | | | LABORATORY: The technical component was performed by [facility] | | | [employer] [address] [place] [address] (Nurse Extern: | | | Kailey Stafford MD; CLIA# [id number]). Professional interpretation was | | | performed by [facility], [facility], [address] | | | [place] [address] (Nurse Extern: Ishaan | | | Anthony Dao; CLIA#: [id number]). Diagnostician: Ishaan Fitzpatrick | | | Sylwia [...] | | Starting [facility] 01/05/19 at 0924, | | | [...] ONCE | | | PRN, Nausea, Starting [facility] 01/05/19 | | | at 0924, For 1 dose, | | | Recovery/Phase I | | + +---+ | | | + +---+ documented in this encounter
--- OUTSIDE RECORDS SUMMARY | ~2020-04-13 | XMS | Encounter Summary ---
Demographics + + + | Address | [address] | | | [place] [address] | + + + | Home Phone [...] + +------+ + | Care Reinforcing Steel Erector Name | Role | Phone [...] | CARDIOLOGY [address] | [address] | reprogramming/check | | | | [place], | [place], | DO NOT DELETE | | | | [place] [address] | [place] [address] | (Primary Dx); | | | | [phone] | [phone] | Sinoatrial node | | | | [...] | | | | | | [place] [address] | | | | | | [phone] | | | | | | | | +--------+ + + + + | 05/01/ | Procedure | Cardiology | | | | 2019 | visit | | | | +--------+ + + + + | 05/01/ | Office | Cardiology | Silvia | | | 2019 | Visit | | PARISA Vernon [address] | | | | | | [place], | | | | | | [place] [address] | | | | | | [phone] | | | | | | | | +--------+ + + + + | 05/21/ | Implant | Cardiology | Daljit Singletary, | Remote Device | | 2019 | Monitor | | [address] | Interrogation | | | | | [place], | (Primary Dx); | | | | | [place] [address] | Pacemaker; | | | | | [phone] | Sinoatrial node | | | | [...]
--- OUTSIDE RECORDS SUMMARY | ~2020-04-13 | XMS | Encounter Summary ---
Demographics + + + | Address | [address] | | | [place] [address] | + + + | Home Phone [...] Team Providers + +------+ + | Care Advisor Consultant Name | Role | Phone | + +------+ + PCP | Unavailable | + +------+ + Encounter Details +--------+ + + + + | Date | Type | Department | Care Team | Description | +--------+ + + + + | 01/15/ | [facility] | [facility] | Emmanuel Daniel MD | | | 1994 | Encounter | MED CTR GENERIC OP | [address] | | | | | CONV DEPT [address] | [address] [place] | | | | | [place], | [address] | | | | | [place] [address] | | | | | | [phone] | | | +--------+ + + + [...] | | | | | | [place], | | | | | | [place] [address] | | | | | | [phone] | | | | | | | | +--------+ + + + + | 05/01/ | Procedure | Cardiology | | | | 2019 | visit | | | | +--------+ + + + + | 05/01/ | Office | Cardiology | Silvia, | | | 2019 | Visit | | PARISA Vernon [address] | | | | | | [place], | | | | | | [place] [address] | | | | | | [phone] | | | | | | | | +--------+ + + + + | 05/21/ | Implant | Cardiology | Daljit Singletary, | Remote Device | 2019 | Monitor | | [address] [place] | Interrogation | | | | | [place], | (Primary Dx); | | | | | [place] [address] | Pacemaker; | | | | | [phone] | Sinoatrial node | | | | | | dysfunction (HCC) | | | | | | with symptomatic | | | | | | bradycardia | +--------+ + + + + documented as of this encounter Visit Diagnoses Not on filedocumented in this encounter"
--- OUTSIDE RECORDS SUMMARY | ~2020-04-13 | XMS | Encounter Summary ---
Demographics + + + | Address | [address] | | | [place] [address] | + + + | Home Phone [...] + +------+ + | Care Gas Appliance Servicer Helper Name | Role | Phone [...] + | 10/04/ | Telephone | [facility] | Daljit Singletary, | Other (Records sent) | | 2012 | | CARDIOLOGY [address] | MD [address] [place] | | | | | [place], | [place], | | | | | [place] [address] | [place] [address] | | | | | [phone] | [phone] | | | | | | | [...] | | | | | | [place] [address] | | | | | | [phone] | | | | | | | [...] | | | | | | [place] [address] | | | | | | [phone] | | | | | | | | +--------+ + + + + | 05/21/ | Implant | Cardiology | Daljit Singletary, | Remote Device | | 2019 | Monitor | | [address] | Interrogation | | | | | [place], | (Primary Dx); | | | | | [place] [address] | Pacemaker; | | | | | [phone] | Sinoatrial node | | | | | | dysfunction (HCC) | | | | | | with symptomatic | | | | | | bradycardia | +--------+ + + + + documented as of this encounter Visit Diagnoses Not on filedocumented in this encounter"
--- OUTSIDE RECORDS SUMMARY | ~2020-04-13 | XMS | Encounter Summary ---
Demographics + + + | Address | [address] | | | [place] [address] | + + + | Home Phone [...] Providers + +------+ + | Care Director Food And Beverage Name | Role | Phone | + +------+ + PCP | Unavailable | + +------+ + Encounter Details +--------+ + + + + | Date | Type | Department | Care Team | Description | +--------+ + + + + | 01/31/ | Hospital | [facility] | | | | 2008 | Encounter | MED CTR EMERGENCY | | | | | | [place] [address] | | | | | | [place] | | | | | | [address] | | | | | | [phone] | | | +--------+ + + + [...] | | | | | | [place] [address] | | | | | | [phone] | | | | | | | | +--------+ + + + + | 05/01/ | Procedure | Cardiology | | | | 2019 | visit | | | | +--------+ + + + + | 05/01/ | Office | Cardiology | Silvia, | | | 2019 | Visit | | PARISA [address] | | | | | | [place], | | | | | | [place] [address] | | | | | | [phone] | | | | | | | | +--------+ + + + + | 05/21/ | Implant | Cardiology | Daljit Singletary, | Remote Device | 2019 | Monitor | | [address] | Interrogation | | | | | [place], | (Primary Dx); | | | | | [place] [address] | Pacemaker; | | | | | [phone] | Sinoatrial node | | | | | | dysfunction (HCC) | | | | | | with symptomatic | | | | | | bradycardia | +--------+ + + + + documented as of this encounter Visit Diagnoses Not on filedocumented in this encounter"
--- OUTSIDE RECORDS SUMMARY | ~2020-04-13 | XMS | Encounter Summary ---
Demographics + + + | Address | [address] | | | [place] [address] | + + + | Home Phone [...] Providers + +------+ + | Care Unix Systems Administrator Name | Role | Phone | + +------+ + PCP | Unavailable | + +------+ + Encounter Details +--------+ + + + + | Date | Type | Department | Care Team | Description | +--------+ + + + + | 01/20/ | [facility] | [facility] | Geri Angel, | | | 2009 | Encounter | MED CTR GENERIC OP | MICROBIOLOGY TECHNICIAN [address] | | | | | CONV DEPT [address] | [address] [place] | | | | | [place], | [address] | | | | | [place] [address] | | | | | | [phone] | | | +--------+ + + + [...] | | | | | | [place] [address] | | | | | | [phone] | | | | | | | [...] | | | | | | [place] [address] | | | | | | [phone] | | | | | | | | +--------+ + + + + | 05/21/ | Implant | Cardiology | Daljit Singletary, | Remote Device | 2019 | Monitor | | [address] | Interrogation | | | | | [place], | (Primary Dx); | | | | | [place] [address] | Pacemaker; | | | | | [phone] | Sinoatrial node | | | | | | dysfunction (HCC) | | | | | | with symptomatic | | | | | | bradycardia | +--------+ + + + + documented as of this encounter Visit Diagnoses Not on filedocumented in this encounter"
--- OUTSIDE RECORDS SUMMARY | ~2020-04-13 | XMS | Encounter Summary ---
Demographics + + + | Address | [address] | | | [place] [address] | + + + | Home Phone [...] Providers + +------+ + | Care Journeyman Patternmaker Name | Role | Phone | [...] [place] | | | | | | [address] | | | | | | [phone] | | | +--------+ + + + [...] | | | | | | [place] [address] | | | | | | [phone] | | | | | | | [...] | | | | | | [place] [address] | | | | | | [phone] | | | | | | | | +--------+ + + + + | 05/21/ | Implant | Cardiology | Daljit Singletary, | Remote Device | | 2019 | Monitor | | [facility] | Interrogation | | | | | StJuan Diego Hooper, | (Primary Dx); | | | | | [place] [address] | Pacemaker; | | | | | [phone] | Sinoatrial node | | | | | | dysfunction (HCC) | | | | | | with symptomatic | | | | | | bradycardia | +--------+ + + + + documented as of this encounter Visit Diagnoses Not on filedocumented in this encounter"
--- OUTSIDE RECORDS SUMMARY | ~2020-04-13 | XMS | Encounter Summary ---
Demographics + + + | Address | [address] | | | [place] [address] | + + + | Home Phone [...] Providers + +------+ + | Care Research Instructor Name | Role | Phone | [...] + | 11/05/ | Telephone | [facility] | Daljit Singletary, | Chest Pain | | 2016 | | CARDIOLOGY [address] | MD [address] [place] | | | | | [place], | [place], | | | | | [place] [address] | [place] [address] | | | | | [phone] | [phone] | | | | | | | [...] W | | | | | | [place], | | | | | | [place] [address] | | | | | | [phone] | | | | | | | | +--------+ + + + + | 05/01/ | Procedure | Cardiology | | | | 2019 | visit | | | | +--------+ + + + + | 05/01/ | Office | Cardiology | Silvia, | | | 2019 | Visit | | PARIAS Vernon [address] | | | | | | [place], | | | | | | [place] [address] | | | | | | [phone] | | | | | | | | +--------+ + + + + | 05/21/ | Implant | Cardiology | Daljit Singletary, | Remote Device | | 2019 | Monitor | | [facility] | Interrogation | | | | | [place], | (Primary Dx); | | | | | [place] [address] | Pacemaker; | | | | | [phone] | Sinoatrial node | | | | | | dysfunction (HCC) | | | | | | with symptomatic | | | | | | bradycardia | +--------+ + + + + documented as of this encounter Visit Diagnoses Not on filedocumented in this encounter"
--- OUTSIDE RECORDS SUMMARY | ~2020-04-13 | XMS | Encounter Summary ---
Demographics + + + | Address | [address] | | | [place] [address] | + + + | Home Phone [...] Team Providers + +------+ + | Care Ballpoint Pen Assembly Machine Operator Name | Role | Phone | + +------+ + | Michael Amanda DO | PCP | | + +------+ + Encounter Details +--------+ + + + + | Date | Type | Department | Care Team | Description | +--------+ + + + + | 04/03/ | Hospital | [facility] | Jay Gambino MD | | | 2012 - | Encounter | [facility] | [address] | | | | | CARDIAC TRANSPLANT | [address] [place] | | | 04/04/ | | [address] | [place] [address] | | | 2012 | | [place] | [phone] | | | | | [address] | | | | | | [phone] | | | +--------+ + + + [...] 1960 ADMISSION DATE: 04/03/2013 DISCHARGE DATE: 04/04/2013 [id number] / [id number] ADMISSION DIAGNOSES: 1. Symptomatic premature ventricular contractions [...] study and ablati on. MOE GAY ADM:04/03/13 [id number] 04/04/13 [place] DISCHARGE SUMMARY [id number] [facility] PARISA Hughes [facility] MD Meena Pleitez THIS REPORT IS CONFIDENTIAL AND NOT TO BE RELEASED WITHOUT PROPER AUTHORIZATION. [facility] Mr. Gay was taken to the [...] 180 mg once daily. MOE GAY ADM:04/03/13 [id number] 04/04/13 [place] DISCHARGE SUMMARY [id number] [facility] PARISA Hughes [facility] MD Meena Pleitez THIS REPORT IS CONFIDENTIAL AND NOT TO BE RELEASED WITHOUT PROPER AUTHORIZATION. [facility] 5. Docusate sodium 2 tablets once daily. 6. Marinol 10 mg twice daily. 7. Metoprolol succinate 200 mg once daily. 8. Oxycodone 10 mg 10 mg oral as needed. 9. Oxycodone 30 mg oral twice daily. 10. Pravastatin 40 mg at bedtime. 11. Promethazine 25 mg as needed. 12. Ranitidine 1 to 2 tablets once daily. 13. Volin oil 2 tablets twice daily. 14. Valacyclovir 500 mg once daily. There were no new medications or medication dosage changes at time of discharge. PLAN: 1. Mr. Gay will be discharged home on medications as noted above, including his usual m edications of diltiazem and metoprolol. 2. He will be seen and followed by Dr. Gambino on 16 at 9:00 a.m. at [facility], [address]. 3. He will contact our office earlier than scheduled appointment should he have any diffic ulty prior to that time. PARISA Hughes MD A P RICHIE/med #[id number] cc: MD Dona Pleitez ARNP Suwong Wongsuwan, MD Electronically Signed 04/12/13 1400 PARISA Hughes Electronically Signed 05/22/13 1245 Jay Gambino MD MOE GAY ADM:04/03/13 [id number] 04/04/13 [place] DISCHARGE SUMMARY [id number] [facility] PARISA Hughes [facility] Jay Gambino MD R THIS REPORT IS CONFIDENTIAL AND NOT TO BE RELEASED WITHOUT PROPER AUTHORIZATION.Electronica lly signed by Jael Brown at 05/22/2013 1:25 PM Dona Grossman ARNP - 04/04/2013 9:05 AM PDT PATIENT NAME: MOE GAY Sex/Age: M / 53Y : 1960 ADMISSION DATE: 04/03/2013 DISCHARGE DATE: 04/04/2013 [id number] / [id number] ADMISSION DIAGNOSES: 1. Symptomatic premature ventricular contractions [...] and ablati on. MOE GAY Jaimee ADM:04/03/13 [id number] 04/04/13 [place] DISCHARGE SUMMARY [id number] [facility] PARISA Hughes [facility] MD Meena Pleitez THIS REPORT IS CONFIDENTIAL AND NOT TO BE RELEASED WITHOUT PROPER AUTHORIZATION. [facility] Mr. Gay was taken to the [...] 180 mg once daily. MOE GAY ADM:04/03/13 [id number] 04/04/13 [place] DISCHARGE SUMMARY [id number] [facility] PARISA Hughes [facility] MD Meena Pleitez THIS REPORT IS CONFIDENTIAL AND NOT TO BE RELEASED WITHOUT PROPER AUTHORIZATION. [facility] 5. Docusate sodium 2 tablets once daily. 6. Marinol 10 mg twice daily. 7. Metoprolol succinate 200 mg once daily. 8. Oxycodone 10 mg 10 mg oral as needed. 9. Oxycodone 30 mg oral twice daily. 10. Pravastatin 40 mg at bedtime. 11. Promethazine 25 mg as needed. 12. Ranitidine 1 to 2 tablets once daily. 13. Volin oil 2 tablets twice daily. 14. Valacyclovir 500 mg once daily. There were no new medications or medication dosage changes at time of discharge. PLAN: 1. Mr. aGy will be discharged home on medications as noted above, including his usual m edications of diltiazem and metoprolol. 2. He will be seen and followed by Dr. Gambino on 16 at 9:00 a.m. at [facility], [address]. 3. He will contact our office earlier than scheduled appointment should he have any diffic ulty prior to that time. PARISA Hughes MD A P RICHIE/med #[id number] cc: MD Dona Pleitez ARNP Suwong Wongsuwan, MD Electronically Signed 04/12/13 1400 PARISA Hughes MOE GAY ADM:04/03/13 [id number] 04/04/13 [place] DISCHARGE SUMMARY [id number] [facility] PARISA Hughes [facility] MD Meena Pleitez [...] + + + +---------+ + + | Needham-3 Fatty | CAPS, one capsule by | [...] | | | | | | [place] [address] | | | | | | [phone] | | | | | | | | +--------+ + + + + | 05/01/ | Procedure | Cardiology | | | | 2019 | visit | | | | +--------+ + + + + | 05/01/ | Office | Cardiology | Silvia, | | | 2019 | Visit | | PARISA [place] [address] | | | | | | [place], | | | | | | [place] [address] | | | | | | [phone] | | | | | | | | +--------+ + + + + | 05/21/ | Implant | Cardiology | Daljit Singletary, | Remote Device | | 2019 | Monitor | | MD [place] | Interrogation | | | | | [place], | (Primary Dx); | | | | | [place] [address] | Pacemaker; | | | | | [phone] | Sinoatrial node | | | | [...] + + + | Glucose | 94Comment: Senegalese | 65 - 99 mg/dL | [facility] [...] + | [facility] | [address] | [place] [address] | | | [facility] | | | | | [...] + + | YESSY JONES | [address] | [place] [address] | | | [facility] | | | | | LABORATORY | | | | + + + + + documented in this encounter Visit Diagnoses Not on filedocumented in this encounter"
--- OUTSIDE RECORDS SUMMARY | ~2020-04-13 | XMS | Encounter Summary ---
Demographics + + + | Address | [address] | | | [place] [address] | + + + | Home Phone [...] + + | 01/01/ | Telephone | [facility] | Kirk French | Other (Pacemaker) | | 2020 | | [facility] | MD Brea [address] | | | | | [facility] [address] | | | | | [address] | [place] [address] | | | | | [place], [place] | [phone] | | | | | [address] | | | | | | [phone] | | | +--------+ + + + [...] | | | | | | [place] [address] | | | | | | [phone] | | | | | | | | +--------+ + + + + | 05/01/ | Procedure | Cardiology | | | | 2019 | visit | | | | +--------+ + + + + | 05/01/ | Office | Cardiology | [place], | | | 2019 | Visit | | PARISA Vernon [address] | | | | | | [place], | | | | | | [place] [address] | | | | | | [phone] | | | | | | | | +--------+ + + + + | 05/21/ | Implant | Cardiology | Daljit Singletary, | Remote Device | 2019 | Monitor | | [address] | Interrogation | | | | | [place], | (Primary Dx); | | | | | [place] [address] | Pacemaker; | | | | | [phone] | Sinoatrial node | | | | | | dysfunction (HCC) | | | | | | with symptomatic | | | | | | bradycardia | +--------+ + + + + documented as of this encounter Visit Diagnoses Not on filedocumented in this encounter"
--- OUTSIDE RECORDS SUMMARY | ~2020-04-13 | XMS | Encounter Summary ---
Demographics + + + | Address | [address] | | | [place] [address] | + + + | Home Phone [...] Team Providers + +------+ + | Care Transfill Technician Name | Role | Phone | + +------+ + | Michael Amanda DO | PCP | | + +------+ + Encounter Details +--------+ + + + + | Date | Type | Department | Care Team | Description | +--------+ + + + + | 11/03/ | Emergency | [facility] | Eliel Calzada, | Palpitations; | | 2013 - | | [facility]ICAL [facility]ENTER | MD Chiquis JOHNSON | Atypical chest pain | | | | EMERGENCY CENTER | [facility] [place] | | | 11/04/ | | [address] | [address] | | | 2013 | | [place], [place] | | | | | | [address] | | | | | | [phone] | | | +--------+ + + + [...] | | | | | | [place] [address] | | | | | | [phone] | | | | | | | [...] | | | | | | [place] [address] | | | | | | [phone] | | | | | | | | +--------+ + + + + | 05/21/ | Implant | Cardiology | Daljit Singletary, | Remote Device | | 2019 | Monitor | | [address] [place] | Interrogation | | | | | [place], | (Primary Dx); | | | | | [place] [address] | Pacemaker; | | | | | [phone] | Sinoatrial node | | | | [...] CHEST 2 VIEW FRONTAL | | AND JDHGWDS5911/03/2014 11:56 PM History: 54 years. Male. Acute [...] EXTERNAL | | | | performed at [facility];888 | | LAB | | | | [address];[place] | | | | | | [address] | | | | + + + + + -+ | Red Blood | 4.97Comment: Testing | 4.20 - 5.70 | EXTERNAL | | | Cells | performed at [facility];888 | M/uL | LAB | | | Counted | [address];[place] | | | | | | [address] | | | | + + + + + -+ | Hemoglobin | 16.8Comment: Testing | 13.2 - 17.0 | EXTERNAL | | | | performed at [facility];888 | g/dL | LAB | | | | [address];[place] | | | | | | [address] | | | | + + + + + -+ | Hematocrit, | 48.2Comment: Testing | 39.0 - 50.0 % | EXTERNAL | | | POC | performed at [facility];[address] | | LAB | | | [address];[place] | | | | | | [address] | | | | + + + + + -+ | MCV | 97.1Comment: Testing | 80.0 - 100.0 fl | EXTERNAL | | | | performed at [facility];[address] | | LAB | | | | [address];[place] | | | | | | [address] | | | | + + + + + -+ | MCH | 33.9Comment: Testing | 27.0 - 34.0 pg | EXTERNAL | | | | performed at [facility];[address] | | LAB | | | | [address];[place] | | | | | | [address] | | | | + + + + + -+ | MCHC | 34.9Comment: Testing | 32.0 - 35.5 | EXTERNAL | | | | performed at [facility];888 | g/dL | LAB | | | | [address];[place] | | | | | | [address] | | | | + + + + + -+ | RDW-CV | 42.4Comment: Testing | 37 - 53 fl | EXTERNAL | | | | performed at [facility];[address] | | LAB | | | | [address];[place] | | | | | | [address] | | | | + + + + + -+ | Platelet | 143 (L)Comment: Testing | 150 - 400 K/uL | EXTERNAL | | | Count | performed at [facility];888 | | LAB | | | Plasma | [address];[place] | | | | | | [address] | | | | + + + + + -+ | MPV | 9.0Comment: Testing | fl | EXTERNAL | | | | performed at [facility];[address] | | LAB | | | | [address];[place] | | | | | | [address] | | | | + + + + + -+ | Differentia | AUTOMATEDComment: | | EXTERNAL | | | l Type | Testing performed at | | LAB | | | | [facility];[address] | [address];[place] [address] | | | | + + + + + -+ | % Segmented | 61.6Comment: Testing | % | EXTERNAL | | | | performed at [facility];888 | | LAB | | | Neutrophils | [address];[place] | | | | | | [address] | | | | + + + + + -+ | % | 27.8Comment: Testing | % | EXTERNAL | | | Lymphocytes | performed at [facility];888 | | LAB | | | | [address];[place] | | | | | | [address] | | | | + + + + + -+ | % Monocytes | 8.7Comment: Testing | % | EXTERNAL | | | | performed at [facility];[address] | | LAB | | | | [address];[place] | | | | | | [address] | | | | + + + + + -+ | % | 0.8Comment: Testing | % | EXTERNAL | | | Eosinophils | performed at [facility];[address] | | LAB | | | | [address];[place] | | | | | | [address] | | | | + + + + + -+ | % Basophils | 1.1Comment: Testing | % | EXTERNAL | | | | performed at [facility];[address] | | LAB | | | | [address];[place] | | | | | | [address] | | | | + + + + + -+ | Absolute | 5.4Comment: Testing | 1.9 - 7.4 K/uL | EXTERNAL | | | Segmented | performed at [facility];[address] | | LAB | | | Neutrophils | [address];[place] | | | | | | [address] | | | | + + + + + -+ | Absolute | 2.4Comment: Testing | 1.0 - 3.9 K/uL | EXTERNAL | | | Lymphocytes | performed at [facility];[address] | | LAB | | | | [address];[place] | | | | | | [address] | | | | + + + + + -+ | Absolute | 0.8Comment: Testing | 0 - 0.8 K/uL | EXTERNAL | | | Monocytes | performed at [facility];[address] | | LAB | | | | [address];[place] | | | | | | [address] | | | | + + + + + -+ | Absolute | 0.1Comment: Testing | 0 - 0.5 K/uL | EXTERNAL | | | Eosinophils | performed at [facility];888 | | LAB | | | | [address];[place] | | | | | | [address] | | | | + + + + + -+ | Absolute | 0.1Comment: Testing | 0 - 0.1 K/uL | EXTERNAL | | | Basophils | performed at [facility];888 | | LAB | | | | [address];[place] | | | | | | [address] | | | | + + + + + -+ | RBC | SLIDE SCANNED, AGREES | | EXTERNAL | | | Morphology | WITH AUTOMATED | | LAB | | | | RESULTS.Comment: Testing | | | | | | performed at [facility];[address] | | | | | | [address];[place] | | | | | | [address] | | | | + + + + + -+ | Na | 140Comment: Testing | 135 - 143 | EXTERNAL | | | | performed at [facility];888 | mmol/L | LAB | | | | [address];[place] | | | | | | [address] | | | | + + + + + -+ | K | 3.9Comment: Testing | 3.5 - 4.9 | EXTERNAL | | | | performed at [facility];888 | mmol/L | LAB | | | | [address];[place] | | | | | | [address] | | | | + + + + + -+ | Cl | 107Comment: Testing | 99 - 109 mmol/L | EXTERNAL | | | | performed at [facility];[address] | | LAB | | | | [address];[place] | | | | | | [address] | | | | + + + + + -+ | CO2 | 28Comment: Testing | 23 - 32 mmol/L | EXTERNAL | | | | performed at [facility];[address] | | LAB | | | | [address];[place] | | | | | | [address] | | | | + + + + + -+ | Anion Gap | 9Comment: Testing | 5 - 20 mmol/L | EXTERNAL | | | | performed at [facility];[address] | | LAB | | | | [address];[place] | | | | | | [address] | | | | + + + + + -+ | Glucose, | 97Comment: Testing | 65 - 99 mg/dL | EXTERNAL | | | Fasting | performed at [facility];[address] | | LAB | | | | [address];[place] | | | | | | [address] | | | | + + + + + -+ | BUN | 14Comment: Testing | 8 - 25 mg/dL | EXTERNAL | | | | performed at [facility];[address] | | LAB | | | | [address];[place] | | | | | | [address] | | | | + + + + + -+ | Creatinine | 0.98Comment: Testing | 0.70 - 1.30 | EXTERNAL | | | | performed at [facility];888 | mg/dL | LAB | | | | [address];[place] | | | | | | [address] | | | | + + + + + -+ | BUN/Creatin | 14Comment: Testing | | EXTERNAL | | | ine Ratio | performed at [facility];888 | | LAB | | | | [address];[place] | | | | | | [address] | | | | + + + + + -+ | Calcium | 8.8Comment: Testing | 8.5 - 10.2 | EXTERNAL | | | | performed at [facility];888 | mg/dL | LAB | | | | [address];[place] | | | | | | [address] | | | | + + + + + -+ | Protein, | 6.9Comment: Testing | 6.3 - 8.2 g/dL | EXTERNAL | | | Total | performed at [facility];[address] | | LAB | | | | [address];[place] | | | | | | [address] | | | | + + + + + -+ | Albumin | 3.7Comment: Testing | 3.6 - 5.0 g/dL | EXTERNAL | | | | performed at [facility];[address] | | LAB | | | | [address];[place] | | | | | | [address] | | | | + + + + + -+ | Globulin | 3.2Comment: Testing | 1.3 - 4.9 g/dL | EXTERNAL | | | | performed at [facility];[address] | | LAB | | | | [address];[place] | | | | | | [address] | | | | + + + + + -+ | A/G Ratio | 1.2Comment: Testing | 1.0 - 2.4 | EXTERNAL | | | | performed at [facility];[address] | | LAB | | | | [address];[place] | | | | | | [address] | | | | + + + + + -+ | Bilirubin | 0.9Comment: Testing | 0.1 - 1.5 mg/dL | EXTERNAL | | | Total | performed at [facility];[address] | | LAB | | | | [address];[place] | | | | | | [address] | | | | + + + + + -+ | ALP, | 60Comment: Testing | 35 - 115 U/L | EXTERNAL | | | External | performed at [facility];[address] | | LAB | | | | [address];[place] | | | | | | [address] | | | | + + + + + -+ | AST | 22Comment: Testing | 10 - 45 U/L | EXTERNAL | | | | performed at [facility];888 | | LAB | | | | [address];[place] | | | | | | [address] | | | | + + + + + -+ | ALT | 37Comment: Testing | 10 - 65 U/L | EXTERNAL | | | | performed at [facility];888 | | LAB | | | | [address];[place] | | | | | | [address] | | | | + + + [...] | | | | | | at [facility];[address] | | | | [address];[place] [address] | | | | + + + + + -+ | CK, Total | 103Comment: Testing | 55 - 400 U/L | EXTERNAL | | | | performed at [facility];[address] | | LAB | | | | [address];[place] | | | | | | [address] | | | | + + + [...] | | | | | performed at [facility];[address] | | | | | | [address];[place] | | | | | | [address] | | | | + + + + + -+ | aPTT, | 26Comment: Testing | 23 - 32 seconds | EXTERNAL | | | Patient | performed at [facility];[address] | | LAB | | | | [address];[place] | | | | | | [address] | | | | + + + + + -+ | CK-MB | 2.9Comment: Testing | 0.5 - 3.6 ng/mL | EXTERNAL | | | | performed at [facility];[address] | | LAB | | | | [address];[place] | | | | | | [address] | | | | + + + [...] EXTERNAL | | | | performed at [facility];888 | uIU/mL | LAB | | | | [address];[place], [place] | | | | | | [address] | | | | + + [...] EXTERNAL | | | | performed at [facility];[address] | | LAB | | | | [address];[place], [place] | | | | | | [address] | | | | + + + [...] EXTERNAL | | | | performed at [facility] | | LAB | | | | [address];[place], [place] | | | | | | [address] | | | | + + + [...] | | | | | ONLY, -COMPUTER ([id number]), | | | | | | social media editor Michelle Butcher | | | | | | (29) on 11/04/2014 | | | | | | 6:28:13 AM | | | | + + + + + + + + | Specimen | + + | | + + + + + | Narrative | Performed At | + + + | Historically converted procedure from [facility] Epic environment | EXTERNAL LAB [...]
--- OUTSIDE RECORDS SUMMARY | ~2020-04-13 | XMS | Encounter Summary ---
Demographics + + + | Address | [address] | | | [place] [address] | + + + | Home Phone [...] + +------+ + | Care Special Education Para Professional Name | Role | Phone | + +------+ + PCP | Unavailable | + +------+ + Encounter Details +--------+ + + + + | Date | Type | Department | Care Team | Description | +--------+ + + + + | 12/16/ | Hospital | [facility] | | | | 2010 | Encounter | [facility] | | | | | | [address] | | | | | | [place] | | | | | | [address] | | | | | | [phone] | | | +--------+ + + + [...] | | | | | | [place] [address] | | | | | | [phone] | | | | | | | | +--------+ + + + + | 05/01/ | Procedure | Cardiology | | | | 2019 | visit | | | | +--------+ + + + + | 05/01/ | Office | Cardiology | Silvia, | | | 2019 | Visit | | PARISA [address] | | | | | | [place], | | | | | | [place] [address] | | | | | | [phone] | | | | | | | | +--------+ + + + + | 05/21/ | Implant | Cardiology | Daljit Singletary, | Remote Device | 2019 | Monitor | | [address] [place] | Interrogation | | | | | [place], | (Primary Dx); | | | | | [place] [address] | Pacemaker; | | | | | [phone] | Sinoatrial node | | | | | | dysfunction (HCC) | | | | | | with symptomatic | | | | | | bradycardia | +--------+ + + + + documented as of this encounter Visit Diagnoses Not on filedocumented in this encounter"
--- OUTSIDE RECORDS SUMMARY | ~2020-04-13 | XMS | Clinical Summary ---
Demographics + + + | Address | [address] [place] [address] | | | [place] [address] | + + + | Home Phone [...] [place] | | | | | [address] | | + + + + + Care Team Providers + +------+ + | Care Elementary School Director Name | Role | Phone | + +------+ + | Darion Holden DO | PCP | | + +------+ + Source Comments IVETTE is fully live on both EpicCare Ambulatory and EpicCare InPatient.[facility] Allergies + + + + [...] | | | | | | | [address] | | + +--------+ +--------+ + +--------+ | [employer] | AARP | xxxxxxxxxx | 11/22/19 | [phone] | [address] | Indemn | | RETIRED PEOPLE | | | 10-Pre | 9 | [phone] | ity | | | | | sent | | [place] | | | | | | | | [address] | | + +--------+ +--------+ + +--------+ + +--------+ +--------+ + + | Guarantor Name | Accoun | Relation to | Date | Phone | Billing Address | | | t Type | Patient | of | | | | | | | | | | + +--------+ +--------+ + + | Moe Sanchez | Person | Self | [birth year] | [address] | | | [place] | | 1960 | [phone] | [place] | | | [place] | | | [address] (Home) | [address] | + +--------+ +--------+ + + Advance Directives + + + + + | Type | Date Recorded | Patient | Explanation | | | | Packaging Designer | | + + + + + | Advance | | | | | Directives and | | | | | Living Will | | | | + + + + + | Power of | | | | | Coastal/Harbor Defense Officer | | | | + + + + +
--- OUTSIDE RECORDS SUMMARY | ~2020-04-13 | XMS | Encounter Summary ---
Demographics + + + | Address | [address] | | | [place] [address] | + + + | Home Phone [...] + +------+ + | Care Information Systems Consultant Name | Role | Phone | [...] + + | 03/22/ | Refill | [facility] | Kirk French | Medication Refill | | 2019 | | [facility] | MD Brea [address] | | | | | [facility] [address] [address] | [address] | | | | | [address] | [place] [address] | | | | | [place], [place] | [phone] | | | | | [address] | | | | | | [phone] | | | +--------+--------+ + + + [...] | | | | | | [place] [address] | | | | | | [phone] | | | | | | | [...] | | | | | | [place] [address] | | | | | | [phone] | | | | | | | | +--------+ + + + + | 05/21/ | Implant | Cardiology | Daljit Singletary, | Remote Device | | 2019 | Monitor | | [address] [facility] | Interrogation | | | | | [place], | (Primary Dx); | | | | | [place] [address] | Pacemaker; | | | | | [phone] | Sinoatrial node | | | | | | dysfunction (HCC) | | | | | | with symptomatic | | | | | | bradycardia | +--------+ + + + + documented as of this encounter Visit Diagnoses Not on filedocumented in this encounter"
--- OUTSIDE RECORDS SUMMARY | ~2020-04-13 | XMS | Encounter Summary ---
Demographics + + + | Address | [address] | | | [place] [address] | + + + | Home Phone [...] Team Providers + +------+ + | Care Waterproof Bag Sewer Name | Role | Phone | [...] 2019 | | GASTROENTEROLOGY | [address] [place] | | | | | [address] [place] | [address] [place], [place] | | | | | 210 [place], [place] | [address] | | | | | [address] | | | | | | [phone] | | | +--------+ + + + [...] | | | | | | [place] [address] | | | | | | [phone] | | | | | | | [...] | | | | | | [place] [address] | | | | | | [phone] | | | | | | | | +--------+ + + + + | 05/21/ | Implant | Cardiology | Daljit Singletary, | Remote Device | 2019 | Monitor | | [address] | Interrogation | | | | | [place], | (Primary Dx); | | | | | [place] [address] | Pacemaker; | | | | | [phone] | Sinoatrial node | | | | | | dysfunction (HCC) | | | | | | with symptomatic | | | | | | bradycardia | +--------+ + + + + documented as of this encounter Visit Diagnoses Not on filedocumented in this encounter"
--- OUTSIDE RECORDS SUMMARY | ~2020-04-13 | XMS | Encounter Summary ---
Demographics + + + | Address | [address] | | | [place] [address] | + + + | Home Phone [...] Providers + +------+ + | Care Education Reporter Name | Role | Phone | [...] [place], | | | | | | [place] [address] | | | | | | [phone] | | | +--------+ + + + [...] | | | | | | [place] [address] | | | | | | [phone] | | | | | | | | +--------+ + + + + | 05/01/ | Procedure | Cardiology | | | | 2019 | visit | | | | +--------+ + + + + | 05/01/ | Office | Cardiology | Silvia, | | | 2019 | Visit | | PARISA [place] W | | | | | | [place], | | | | | | [place] [address] | | | | | | [phone] | | | | | | | | +--------+ + + + + | 05/21/ | Implant | Cardiology | Daljit Singletary, | Remote Device | 2019 | Monitor | | [address] [place] | Interrogation | | | | | [place], | (Primary Dx); | | | | | [place] [address] | Pacemaker; | | | | | [phone] | Sinoatrial node | | | | | | dysfunction (HCC) | | | | | | with symptomatic | | | | | | bradycardia | +--------+ + + + + documented as of this encounter Visit Diagnoses Not on filedocumented in this encounter"
--- OUTSIDE RECORDS SUMMARY | ~2020-04-13 | XMS | Encounter Summary ---
Demographics + + + | Address | [address] | | | [place] [address] | + + + | Home Phone [...] Providers + +------+ + | Care Senior Controller Name | Role | Phone | [...] | Ascending | Silvia, | [address] | | | | | aortic | Janeen, STOGY MAKER | [place], | | | | | aneurysm | [address] | [place] | | | | | ([facility]) | [address] | [address] | | | | | Procedures | [place], | Phone: | | | | | ECHO | [place] | [phone] | | | | | Complete | [address] | Fax: | | | | | | Phone: | [phone] | | | | | | [phone] | | | | | | | Fax: | | | | | | | [phone] | | + +--------+ + + + [...] | MD [address] | [address] | | | | | hypertension | [address] | [place], | | | | | Sick sinus | 101 | [place] | | | | | syndrome | [place], [place] | [address] | | | | | (HCC) | [address] | Phone: | | | | | Ventricular | Phone: | [phone] | | | | | premature | [phone] | Fax: | | | | | depolarizati | Fax: | [phone] | | | | | on | [phone] | | | | | | Tachycardia, | | | | | | | unspecified | | | | | | | | | | | | | | Atherosclero | | | | | | | tic heart | | | | | | | disease of | | | | | | | port lions | | | | | | | [...] + + | 01/01/ | Office | [facility] | [place], | Ascending thoracic | | 2020 | Visit | CARDIOLOGY [address] | PAR[place] [address] | aortic aneurysm | | | | [address] [place], | [place], | (HCC) (Primary Dx); | | | | [place] [address] | [place] [address] | Coronary artery | | | | [phone] | [phone] | disease involving | | | | | | port lions coronary | | | | | | artery of port lions | | | | | | heart [...] encounter Patient Instructions Patient Instructions Vidhi Gillespie, French Folder - 01/01/2020 7:30 AM PST1. Esau nue [...] of critical coronary artery disea se involving port lions coronary artery of port lions heart without angina pectoris, essential hyper tension, [...] for weight loss, he was defer to [facility], per [facility] to have some sort of a patient [...] mg capsule Take 25 mg by mouth. Bethany-3 Fatty Acids (SALMON OIL-1000 PO) CAPS, one capsule by mouth daily twice daily ondansetron (ZOFRAN ODT) 4 mg disintegrating tablet Take 4 mg by mouth every 8 hours as needed for Nausea. ondansetron (ZOFRAN) 4 mg tablet Take 4 mg by mouth. [facility] Check glucose as needed for hypoglycemia [...] was found Confirmed by GURJIT WINKLER, SYDNI ([id number]) on 06/06/2019 3:43:10 PM LAB RESULTS reviewed during visit today primarily from [facility]: LIPID Lab Results Component Value Date [...] BNP 48 06/02/2019 I reviewed records from [facility] for office visit on 06/06/2019 wh ich is summarized in the HPI. RESULTS- I reviewed reports from [facility]: No results found. Above data and testing is reviewed this visit; testing below is historical data unless othe rwise specified. ASSESSMENT: 1. Non-critical Coronary artery disease involving port lions coronary artery of port lions heart [facility] angina pectoris: A.Normal exercise sestamibi stress [...] symptoms; no limitations of activities of the [place] [employer] functional class. Heart failure [...] performed by Dr Juan Diego Gambino at [facility] on 01/30/2013.Patient had spontaneous PVC'sfr [...] to go back in 3 days to [place] for an attempt of ablation under general [...] advised to having his MRI done in [place] at [facility] which has a repeat MRI protocol for [...] advised to having his MRI done in [place] at [facility] which has a repeat MRI protocol for such situations. Patient also will need echocardiogram for his next appointmen t to evaluate his ascending aorta Vidhi Clemente, French Folder am acting as a scribe on behalf of, and in the prese nce of PARISA Lomas. - Vidhi Gillespie, French Folder 01/01/2020 5:29 PM I, PARISA Lomas, personally performed the services described in this documentati on, as scribed in my presence and it is both accurate and complete. -PARISA Lomas 01/01/2020 Portions of this chart may have been created with newMentor voice recognition software. Occasi onal wrong-word or [...] | | | | | | [place] [address] | | | | | | [phone] | | | | | | | | +--------+ + + + + | 05/01/ | Procedure | Cardiology | | | | 2019 | visit | | | | +--------+ + + + + | 05/01/ | Office | Cardiology | Silvia, | | | 2019 | Visit | | PARISA [address] | | | | | | [place], | | | | | | [place] [address] | | | | | | [phone] | | | | | | | | +--------+ + + + + | 05/21/ | Implant | Cardiology | Sydni Singletary, | Remote Device | | 2019 | Monitor | | [address] [address] | Interrogation | | | | | [place], | (Primary Dx); | | | | | [place] [address] | Pacemaker; | | | | | [phone] | Sinoatrial node | | | | [...] lions heart without | | angina pectoris | [...]
--- OUTSIDE RECORDS SUMMARY | ~2020-04-13 | XMS | Encounter Summary ---
Demographics + + + | Address | [address] | | | [place] [address] | + + + | Home Phone [...] [address] | | | | | | [place], [place] | (Fax) | | | | | [address] | | | | | | [phone] | | | +--------+ + + + [...] | | | | | | [place] [address] | | | | | | [phone] | | | | | | | | +--------+ + + + + | 05/01/ | Procedure | Cardiology | | | | 2019 | visit | | | | +--------+ + + + + | 05/01/ | Office | Cardiology | Silvia, | | | 2019 | Visit | | PARISA Vernon [address] | | | | | | [place], | | | | | | [place] [address] | | | | | | [phone] | | | | | | | | +--------+ + + + + | 05/21/ | Implant | Cardiology | Daljit Singletary, | Remote Device | | 2019 | Monitor | | [address] [place] | Interrogation | | | | | [place], | (Primary Dx); | | | | | [place] [address] | Pacemaker; | | | | | [phone] | Sinoatrial node | | | | | | dysfunction (HCC) | | | | | | with symptomatic | | | | | | bradycardia | +--------+ + + + + documented as of this encounter Visit Diagnoses Not on filedocumented in this encounter"
--- OUTSIDE RECORDS SUMMARY | ~2020-04-13 | XMS | Encounter Summary ---
Demographics + + + | Address | [address] [place] [address] [address] | | | [place] [address] | + + + | Home Phone [...] [place] | | | | | [address] | | + + + + + Care Team Providers + +------+ + | Care Rotary Shear Worker Helper Name | Role | Phone [...] | | | | | Unintentiona | [address] | | | | | | l weight | Ave | | | | | | loss | [facility] [place] | | | | | | Abdominal | [address] | | | | | | cramping | Phone: | | | | | | Chronic | [phone] | | | | | | diarrhea | Fax: | | | | | | Rectal | [phone] | | | | | | bleeding [...] | 2020 | | Center at [facility] [address] | [address] | | | | | [address] | [place], [place] | | | | | Mailcode: [place] | [address] | | | | | for Health and | [phone] | | | | | [facility], [address] | | | | | | [place], [place] | | | | | | [address] | | | | | | [phone] | | | +--------+ + + + [...]
--- OUTSIDE RECORDS SUMMARY | ~2020-04-13 | XMS | Encounter Summary ---
Demographics + + + | Address | [address] | | | [place] [address] | + + + | Home Phone [...] Providers + +------+ + | Care Acid Plant Helper Name | Role | Phone | + +------+ + | Michael Amanda DO | PCP | | + +------+ + Encounter Details +--------+ + + + + | Date | Type | Department | Care Team | Description | +--------+ + + + + | 12/25/ | Hospital | [facility] | Daljit Singletary, | | | 2013 | Encounter | MED CTR XRAY [address] | [address] | | | | | [address] [place] | [address], | | | | | [place] [address] | [place] [address] | | | | | [phone] | [phone] | | | | | | | [...] | | | | | | [place] [address] | | | | | | [phone] | | | | | | | | +--------+ + + + + | 05/01/ | Procedure | Cardiology | | | | 2019 | visit | | | | +--------+ + + + + | 05/01/ | Office | Cardiology | Silvia, | | | 2019 | Visit | | PARISA Vernon [address] | | | | | | [place], | | | | | | [place] [address] | | | | | | [phone] | | | | | | | | +--------+ + + + + | 05/21/ | Implant | Cardiology | Daljit Singletary, | Remote Device | | 2019 | Monitor | | [address] | Interrogation | | | | | [place], | (Primary Dx); | | | | | [place] [address] | Pacemaker; | | | | | [phone] | Sinoatrial node | | | | [...] [facility] Diagnostic Imaging | [place] | | Department [address] [place] [address] | [facility] | | [ rep [address]] [ rep [facility] | | st zip] Signed | - IMAGING | | | | | Patient Name: MOE GAY | | | Physician: MIGUELINA : 1960 Age: 53 Sex: M Unit | | | #: [id number] Exam Date: 12/25/13 Location: | | | SDS SDS-D Report #: [id number] Page: | | | %(RAD)RES..mtdd.print.filter("pg") of %(RAD) | | | RES..mtdd.print.filter("tpg") | | | | | | Accession Number: [id number] | | | LEFT HEART CATHETERIZATION, 12/25/2013 [...] patient was taken to the cardiac laboratory aide. She | | | was prepared and draped in the usual fashion. Under sterile | | | technique and local anesthesia, percutaneous access was obtained | | | using #5 Comoran sheath in the right radial artery. Right heart cath | | | was not performed on this patient. Left ventriculography was | | | performed using #5 multipurpose diagnostic catheter. The selective | | | coronary angiography was then performed in several sagittal and | | | oblique projections using #5 multipurpose and #5 Com[place]an JL 3.5 | | | diagnostic catheters. [...] Transcribed | | | Date/Time: 12/25/2013 11:52 Electronic System Engineer: | | | <<Signature on File>> | | | Daljit | | | MD [facility]ini [facility] FAS12/25/13 1343 <Electronically signed by | | | Daljit Singletary MD, [facility], FACP, ADELINE, YEN> Daljit | | | MD [facility] [facility] ADELINE 12/25/13 1035 Electronic System Engineer: Jessica | | | Jwvgbpstnting86/03/14 1152 | | + + + + + + + + | Performing | Address | City/State/Zipcode | Phone Number | | Organization | | | | + + + + + | [facility] | [address] | [place] | [phone] | | [facility] | | [address] | | | - IMAGING | | | | + + + + + documented in this encounter Visit Diagnoses Not on filedocumented in this encounter
--- OUTSIDE RECORDS SUMMARY | ~2020-04-13 | XMS | Encounter Summary ---
Demographics + + + | Address | [address] | | | [place] [address] | + + + | Home Phone [...] Providers + +------+ + | Care Security Officers And Guards Name | Role | Phone | + +------+ + PCP | Unavailable | + +------+ + Encounter Details +--------+ + + + + | Date | Type | Department | Care Team | Description | +--------+ + + + + | 11/12/ | Hospital | [facility] | | | | 1994 | Encounter | MED CTR GENERIC OP | | | | | | CONV DEPT [address] | | | | | | [place], | | | | | | [place] [address] | | | | | | [phone] | | | +--------+ + + + [...] | | | | | | [place] [address] | | | | | | [phone] | | | | | | | [...] | | | | | | [place] [address] | | | | | | [phone] | | | | | | | | +--------+ + + + + | 05/21/ | Implant | Cardiology | Daljit Singletary, | Remote Device | 2019 | Monitor | | [place] [address] [place] | Interrogation | | | | | [place], | (Primary Dx); | | | | | [place] [address] | Pacemaker; | | | | | [phone] | Sinoatrial node | | | | | | dysfunction (HCC) | | | | | | with symptomatic | | | | | | bradycardia | +--------+ + + + + documented as of this encounter Visit Diagnoses Not on filedocumented in this encounter"
--- OUTSIDE RECORDS SUMMARY | ~2020-04-13 | XMS | Encounter Summary ---
Demographics + + + | Address | [address] | | | [place] [address] | + + + | Home Phone [...] Providers + +------+ + | Care Exhibition Designer Name | Role | Phone | [...] CARDIOLOGY [address] | [address] [place] | Interrogation | | | | [place], | [place], | (Primary Dx); | | | | [place] [address] | [place] [address] | Presence of | | | | [phone] | [phone] | permanent cardiac | | | | [...] | | | | | | [place] [address] | | | | | | [phone] | | | | | | | | +--------+ + + + + | 05/01/ | Procedure | Cardiology | | | | 2019 | visit | | | | +--------+ + + + + | 05/01/ | Office | Cardiology | Silvia, | | | 2019 | Visit | | PARISA Vernon [address] | | | | | | [place], | | | | | | [place] [address] | | | | | | [phone] | | | | | | | | +--------+ + + + + | 05/21/ | Implant | Cardiology | Daljit Singletary, | Remote Device | | 2019 | Monitor | | [place] [address] [place] | Interrogation | | | | | [place], | (Primary Dx); | | | | | [place] [address] | Pacemaker; | | | | | [phone] | Sinoatrial node | | | | [...] scanned into | | | [facility] for remote interrogation results. Data collected by [...]
--- OUTSIDE RECORDS SUMMARY | ~2020-04-13 | XMS | Encounter Summary ---
Demographics + + + | Address | [address] | | | [place] [address] | + + + | Home Phone [...] + +------+ + | Care Director Of Public Relations Name | Role | Phone | [...] [address] | | | | | | [place], [place] | (Fax) | | | | | [address] | | | | | | [phone] | | | +--------+ + + + [...] | | | | | | [place] [address] | | | | | | [phone] | | | | | | | | +--------+ + + + + | 05/01/ | Procedure | Cardiology | | | | 2019 | visit | | | | +--------+ + + + + | 05/01/ | Office | Cardiology | Silvia, | | | 2019 | Visit | | PARISA Vernon [address] | | | | | | [place], | | | | | | [place] [address] | | | | | | [phone] | | | | | | | | +--------+ + + + + | 05/21/ | Implant | Cardiology | Daljit Singletary, | Remote Device | | 2019 | Monitor | | [address] [place] | Interrogation | | | | | [place], | (Primary Dx); | | | | | [place] [address] | Pacemaker; | | | | | [phone] | Sinoatrial node | | | | | | dysfunction (HCC) | | | | | | with symptomatic | | | | | | bradycardia | +--------+ + + + + documented as of this encounter Visit Diagnoses Not on filedocumented in this encounter"
--- OUTSIDE RECORDS SUMMARY | ~2020-04-13 | XMS | Encounter Summary ---
Demographics + + + | Address | [address] | | | [place] [address] | + + + | Home Phone [...] Providers + +------+ + | Care Scrap Collector Name | Role | Phone | [...] 2012 | | Conversion Location | [address] | | | | | [facility] | [address] [place], | | | | | [place], [place] | [place] [address] | | | | | [address] | [phone] | | | | | [phone] | | | +--------+ + + + [...] | | | | | | [place] [address] | | | | | | [phone] | | | | | | | | +--------+ + + + + | 05/01/ | Procedure | Cardiology | | | | 2019 | visit | | | | +--------+ + + + + | 05/01/ | Office | Cardiology | Silvia, | | | 2019 | Visit | | PARISA Vernon [address] | | | | | | [place], | | | | | | [place] [address] | | | | | | [phone] | | | | | | | | +--------+ + + + + | 05/21/ | Implant | Cardiology | Daljit Singletary, | Remote Device | 2019 | Monitor | | [address] [place] | Interrogation | | | | | [place], | (Primary Dx); | | | | | [place] [address] | Pacemaker; | | | | | [phone] | Sinoatrial node | | | | | | dysfunction (HCC) | | | | | | with symptomatic | | | | | | bradycardia | +--------+ + + + + documented as of this encounter Visit Diagnoses Not on filedocumented in this encounter"
--- OUTSIDE RECORDS SUMMARY | ~2020-04-13 | XMS | Encounter Summary ---
Demographics + + + | Address | [address] | | | [place] [address] | + + + | Home Phone [...] 2019 | | CARDIOLOGY [address] | [address] | | | | | [place], | | | | | | [place] [address] | | | | | | [phone] | | | +--------+ + + + [...] W | | | | | | [place], | | | | | | [place] [address] | | | | | | [phone] | | | | | | | | +--------+ + + + + | 05/01/ | Procedure | Cardiology | | | | 2019 | visit | | | | +--------+ + + + + | 05/01/ | Office | Cardiology | Silvia, | | | 2019 | Visit | | PARISA Vernon [address] | | | | | | [place], | | | | | | [place] [address] | | | | | | [phone] | | | | | | | | +--------+ + + + + | 05/21/ | Implant | Cardiology | Daljit Singletary, | Remote Device | | 2019 | Monitor | | [place] [address] [facility] | Interrogation | | | | | [place], | (Primary Dx); | | | | | [place] [address] | Pacemaker; | | | | | [phone] | Sinoatrial node | | | | [...] | | | | | | | [place], | | | | | | External [...]
--- OUTSIDE RECORDS SUMMARY | ~2020-04-13 | XMS | Encounter Summary ---
Demographics + + + | Address | [address] | | | [place] [address] | + + + | Home Phone [...] Providers + +------+ + | Care Net Software Developer Name | Role | Phone [...] 2019 | | GASTROENTEROLOGY | [address] [place] | | | | | [address] [place] | [address] [place], [place] | | | | | [address] [place], [place] | [address] | | | | | [address] | | | | | | [phone] | | | +--------+ + + + [...] | | | | | | [place] [address] | | | | | | [phone] | | | | | | | [...] | | | | | | [place] [address] | | | | | | [phone] | | | | | | | | +--------+ + + + + | 05/21/ | Implant | Cardiology | Daljit Singletary, | Remote Device | | 2019 | Monitor | | [address] [facility] | Interrogation | | | | | [address] [place], | (Primary Dx); | | | | | [place] [address] | Pacemaker; | | | | | [phone] | Sinoatrial node | | | | | | dysfunction (HCC) | | | | | | with symptomatic | | | | | | bradycardia | +--------+ + + + + documented as of this encounter Visit Diagnoses Not on filedocumented in this encounter"
--- OUTSIDE RECORDS SUMMARY | ~2020-04-13 | XMS | Encounter Summary ---
Demographics + + + | Address | [address] | | | [place] [address] | + + + | Home Phone [...] Team Providers + +------+ + | Care Cobol Application Developer Name | Role | Phone | + +------+ + | Darion Holden DO | PCP | | + +------+ + Encounter Details +--------+ + + + + | Date | Type | Department | Care Team | Description | +--------+ + + + + | 08/05/ | Hospital | [facility] | Emmanuel Daniel MD | | | 2009 | Encounter | MED CTR XRAY [address] | [address] | | | | | [place] | [address] [place], [place] | | | | | [place] [address] | [address] | | | | | [phone] | | | +--------+ + + + [...] W | | | | | | [place], | | | | | | [place] [address] | | | | | | [phone] | | | | | | | | +--------+ + + + + | 05/01/ | Procedure | Cardiology | | | | 2019 | visit | | | | +--------+ + + + + | 05/01/ | Office | Cardiology | Silvia, | | | 2019 | Visit | | PARISA Vernon [address] | | | | | | [place], | | | | | | [place] [address] | | | | | | [phone] | | | | | | | | +--------+ + + + + | 05/21/ | Implant | Cardiology | Daljit Singletary, | Remote Device | | 2019 | Monitor | | [address] [place] | Interrogation | | | | | [place], | (Primary Dx); | | | | | [place] [address] | Pacemaker; | | | | | [phone] | Sinoatrial node | | | | | | dysfunction (HCC) | | | | | | with symptomatic | | | | | | bradycardia | +--------+ + + + + documented as of this encounter Visit Diagnoses Not on filedocumented in this encounter"
--- OUTSIDE RECORDS SUMMARY | ~2020-04-13 | XMS | Encounter Summary ---
Demographics + + + | Address | [address] | | | [place] [address] | + + + | Home Phone [...] Team Providers + +------+ + | Care Charging Board Operator Name | Role | Phone | + +------+ + PCP | Unavailable | + +------+ + Encounter Details +--------+ + + + + | Date | Type | Department | Care Team | Description | +--------+ + + + + | 04/23/ | Hospital | [facility] | | | | 2007 - | Encounter | MED CTR MED ONC | | | | | | [address] | | | | 04/24/ | | [place] [address] | | | | 2007 | | [phone] | | | +--------+ + + + [...] | | | | | | [place] [address] | | | | | | [phone] | | | | | | | [...] | | | | | | [place] [address] | | | | | | [phone] | | | | | | | | +--------+ + + + + | 05/21/ | Implant | Cardiology | Daljit Singletary, | Remote Device | 2019 | Monitor | | [address] [place] | Interrogation | | | | | [place], | (Primary Dx); | | | | | [place] [address] | Pacemaker; | | | | | [phone] | Sinoatrial node | | | | | | dysfunction (HCC) | | | | | | with symptomatic | | | | | | bradycardia | +--------+ + + + + documented as of this encounter Visit Diagnoses Not on filedocumented in this encounter"
--- OUTSIDE RECORDS SUMMARY | ~2020-04-13 | XMS | Encounter Summary ---
Demographics + + + | Address | [address] | | | [place] [address] | + + + | Home Phone [...] Providers + +------+ + | Care Adobe Maker Name | Role | Phone | [...] [place] | | | | | | [address] | | | | | | [phone] | | | +--------+ + + + [...] | | | | | | [place] [address] | | | | | | [phone] | | | | | | | | +--------+ + + + + | 05/01/ | Procedure | Cardiology | | | | 2019 | visit | | | | +--------+ + + + + | 05/01/ | Office | Cardiology | Silvia, | | | 2019 | Visit | | [address] | | | | | | [place], | | | | | | [place] [address] | | | | | | [phone] | | | | | | | | +--------+ + + + + | 05/21/ | Implant | Cardiology | Daljit Singletary, | Remote Device | 2019 | Monitor | | [address] [place] | Interrogation | | | | | [place], | (Primary Dx); | | | | | [place] [address] | Pacemaker; | | | | | [phone] | Sinoatrial node | | | | | | dysfunction (HCC) | | | | | | with symptomatic | | | | | | bradycardia | +--------+ + + + + documented as of this encounter Visit Diagnoses Not on filedocumented in this encounter"
--- OUTSIDE RECORDS SUMMARY | ~2020-04-13 | XMS | Encounter Summary ---
Demographics + + + | Address | [address] | | | [place] [address] | + + + | Home Phone [...] Providers + +------+ + | Care Sausage Cooker Name | Role | Phone | [...] | | | | | [address] | [place] [address] | | | | | | [place], [place] | Phone: | | | | | | [address] | [phone] | | | | | | Phone: | Fax: | | | | | | [phone] | [phone] | | | | | | Fax: | | | | | | | [phone] | | + + + + + + + Reason for Visit + + + | Reason | Comments | + + + | Annual Exam | | + + + Encounter Details +--------+---------+ + + + | Date | Type | Department | Care Team | Description | +--------+---------+ + + + | 01/11/ | Office | [facility] | Prabhakarmaria doloresKirk | Irritable bowel | | 2019 | Visit | [facility] | MD Bre[address] | syndrome, | | | | [address] | unspecified type | | | | [address] | [place] [address] | (Primary Dx); | | | | [place], [place] | [phone] | Chronic pain | | | | [address] | | syndrome; Smoker; | | | | [phone] | | Fatigue, unspecified | | | [...] PLT 169 06/02/2019 No results found for: [id number] No results found for: FOLATE No results [...] Plan and Recommendations: 1. [facility] lab in [place] for stool studies as outlined above 2. If negative and symptoms persist, recommend capsule endoscopy (this could be completed b y local mexican food maker hand or he could return to [place] for this test) 3. Nortryptiline 25mg q HS with instruction to titrate to 50mg q HS after 2 weeks if tolera kevin Follow-Up: with local mexican food maker hand Counseling Time: I spent a total of 35 minutes with this patient, of which greater than 50% of the time was spent in counseling. Specific issues that were discussed included a review of the disease, diagnostic tools that help in our management plans for the patient's chronic diarrhea, abdominal cramping and weight loss and goals for treatment. Bridgette Rios MD Manager Environmental Health Gastroenterology Many co and concerns: Co bleeding Co weak Co tired Co diarrhea Co cramps Co weight changes Co 14 stool in 2 hours this AM Took 8 imodium and 2 lomotil Not taking nortriptyline as prescribed by his GI Also wants a script for hemorrhoids Pending pill endoscopy and colonoscopy May be interested in [place] if no results States was down 210# now 267 Co bedridden and can't leave the house Co incontinence States many ER visits, once a week in [place], tx with IVF and dilaudid Conc re ppm Conc re r shoulder tkr and need for mri Issues with Klonopin Was arrested for DUI, self dc 08/14, had difficult withdrawal ofr 2 weeks Walks daily now for stress and exercise 1-5 miles a day Plan: ASSESSMENT AND PLAN: 1. Approximately 40 minutes of time on this gentleman's case [id number], a lot of it was reviewing outside [...] atypica l. Followed by Dr. Rios at [facility]. I reviewed her notes in the [...] W | | | | | | [place], | | | | | | [place] [address] | | | | | | [phone] | | | | | | | | +--------+ + + + + | 05/01/ | Procedure | Cardiology | | | | 2019 | visit | | | | +--------+ + + + + | 05/01/ | Office | Cardiology | Silvia, | | | 2019 | Visit | | [address] | | | | | | [place], | | | | | | [place] [address] | | | | | | [phone] | | | | | | | | +--------+ + + + + | 05/21/ | Implant | Cardiology | Daljit Singletary, | Remote Device | | 2019 | Monitor | | MD [address] [place] [place] | Interrogation | | | | | [place], | (Primary Dx); | | | | | [place] [address] | Pacemaker; | | | | | [phone] | Sinoatrial node | | | | [...] | Ordered: 01/11/2020 | | to [facility] | Referral | e | [...] health care Routine general medical examination at [facility] | | facility | + + | [...]
--- OUTSIDE RECORDS SUMMARY | ~2020-04-13 | XMS | Encounter Summary ---
Demographics + + + | Address | [address] | | | [place] [address] | + + + | Home Phone [...] Providers + +------+ + | Care Ict Business Development Manager Name | Role | Phone [...] [place] | | | | | | [address] | | | | | | [phone] | | | +--------+ + + + [...] | | | | | | [place] [address] | | | | | | [phone] | | | | | | | [...] | | | | | | [place] [address] | | | | | | [phone] | | | | | | | | +--------+ + + + + | 05/21/ | Implant | Cardiology | Daljit Singletary, | Remote Device | 2019 | Monitor | | [address] [place] | Interrogation | | | | | [place], | (Primary Dx); | | | | | [place] [address] | Pacemaker; | | | | | [phone] | Sinoatrial node | | | | | | dysfunction (HCC) | | | | | | with symptomatic | | | | | | bradycardia | +--------+ + + + + documented as of this encounter Visit Diagnoses Not on filedocumented in this encounter"
--- OUTSIDE RECORDS SUMMARY | ~2020-04-13 | XMS | Encounter Summary ---
Demographics + + + | Address | [address] [place] [address] [address] | | | [place] [address] | + + + | Home Phone [...] [place] | | | | | [address] | | + + + + + [...] 2 | | | | | | [place], [place] | [place], [place] | | | | | | [address] | [address] | | | | | | Phone: | Phone: | | | | | | [phone] | [phone] | | | | | | Fax: | Fax: | | | | | | [phone] | [phone] | +--------+--------+ + + + + Encounter Details +--------+---------+ + + + | Date | Type | Department | Care Team | Description | +--------+---------+ + + + | 09/28/ | Office | Digestive Health | Bridgette Rios, | Chronic diarrhea | | 2019 | Visit | [facility] [address] | [address] | (Primary Dx); | | | | [address] | [place], [place] | Abdominal cramping; | | | | Mailcode: [place] | [address] | Unintentional weight | | | | for Health and | [phone] | loss | | | | [facility] | | | | | | [place], [place] | | | | | | [address] | | | | | | [phone] | | | +--------+---------+ + + + [...] some lab orders to [place] 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 Gastroenterology [facility] ~ Initial Consultation / New [...] disease. CT scan done through [facility] November show ed mild diverticulosis [...] Present Illness: Here with his from [place] for second opinion regarding severe abdominal cramps, isreal rrhea and weight loss following a GI illness contracted during a trip to [facility]. He reports that 2 years ago he was traveling in [facility] and he had some suspicious seafood. He develo ps profound bloody diarrhea with severe abdominal pain. He was hospitalized in [facility] and w as treated with [...] file Gets together: Not on file Attends mormon service: Not on file Active member of [...] and Recommendations: 1. [facility] in [place] for stool studies as outlined above 2. If negative and symptoms persist, recommend capsule endoscopy (this could be completed b y local shoelace tipping machine operator or he could return to [place] for this test) 3. Nortryptiline 25mg q HS with instruction to titrate to 50mg q HS after 2 weeks if tolera kevin Follow-Up: with local shoelace tipping machine operator Counseling Time: I spent a [...] and goals for treatment. Bridgette Rios MD Steam Plant Control Room Operator Gastroenterology documented in this e ncounter Plan [...]
--- OUTSIDE RECORDS SUMMARY | ~2020-04-13 | XMS | Encounter Summary ---
Demographics + + + | Address | [address] | | | [place] [address] | + + + | Home Phone [...] Providers + +------+ + | Care Golf Starter And Ranger Name | Role | Phone | + [...] | | | | | | [place] [address] | | | | | | [phone] | | | +--------+ + + + [...] | | | | | | [place] [address] | | | | | | [phone] | | | | | | | | +--------+ + + + + | 05/01/ | Procedure | Cardiology | | | | 2019 | visit | | | | +--------+ + + + + | 05/01/ | Office | Cardiology | Silvia, | | | 2019 | Visit | | [address] | | | | | | [place], | | | | | | [place] [address] | | | | | | [phone] | | | | | | | | +--------+ + + + + | 05/21/ | Implant | Cardiology | Daljit Singletary, | Remote Device | 2019 | Monitor | | [address] [place] | Interrogation | | | | | [place], | (Primary Dx); | | | | | [place] [address] | Pacemaker; | | | | | [phone] | Sinoatrial node | | | | | | dysfunction (HCC) | | | | | | with symptomatic | | | | | | bradycardia | +--------+ + + + + documented as of this encounter Visit Diagnoses Not on filedocumented in this encounter"
--- OUTSIDE RECORDS SUMMARY | ~2020-04-13 | XMS | Encounter Summary ---
Demographics + + + | Address | [address] | | | [place] [address] | + + + | Home Phone [...] Providers + +------+ + | Care Finishing Room Operator Name | Role | Phone [...] + + | 01/22/ | Refill | [facility] | Kirk French | Medication Refill | | 2019 | | [facility] | MD Brea [address] | | | | | [facility] | [address] | | | | | [address] | [place] [address] | | | | | [place], [place] | [phone] | | | | | [address] | | | | | | [phone] | | | +--------+--------+ + + + [...] | | | | | | [place] [address] | | | | | | [phone] | | | | | | | | +--------+ + + + + | 05/01/ | Procedure | Cardiology | | | | 2019 | visit | | | | +--------+ + + + + | 05/01/ | Office | Cardiology | Silvia, | | | 2019 | Visit | | [address] | | | | | | [place], | | | | | | [place] [address] | | | | | | [phone] | | | | | | | | +--------+ + + + + | 05/21/ | Implant | Cardiology | Daljit Singletary, | Remote Device | | 2019 | Monitor | | [address] [facility] | Interrogation | | | | | [place], | (Primary Dx); | | | | | [place] [address] | Pacemaker; | | | | | [phone] | Sinoatrial node | | | | | | dysfunction (HCC) | | | | | | with symptomatic | | | | | | bradycardia | +--------+ + + + + documented as of this encounter Visit Diagnoses Not on filedocumented in this encounter"
--- OUTSIDE RECORDS SUMMARY | ~2020-04-13 | XMS | Encounter Summary ---
Demographics + + + | Address | [address] | | | [place] [address] | + + + | Home Phone [...] Providers + +------+ + | Care Operator Cavity Pump Name | Role | Phone | [...] CARDIOLOGY [address] | MD [address] [place] | Interrogation | | | | [place], | [place], | (Primary Dx); | | | | [place] [address] | [place] [address] | Pacemaker; | | | | [phone] | [phone] | Sinoatrial node | | | | [...] | | | | | | [place] [address] | | | | | | [phone] | | | | | | | | +--------+ + + + + | 05/01/ | Procedure | Cardiology | | | | 2019 | visit | | | | +--------+ + + + + | 05/01/ | Office | Cardiology | Silvia, | | | 2019 | Visit | | [address] | | | | | | [place], | | | | | | [place] [address] | | | | | | [phone] | | | | | | | | +--------+ + + + + | 05/21/ | Implant | Cardiology | Daljit Singletary, | Remote Device | 2019 | Monitor | | MD [facility] | Interrogation | | | | | [place], | (Primary Dx); | | | | | [place] [address] | Pacemaker; | | | | | [phone] | Sinoatrial node | | | | [...] + + | Performing | Address | City/State/[facility] | Phone Number | [...]
--- OUTSIDE RECORDS SUMMARY | ~2020-04-13 | XMS | Encounter Summary ---
Demographics + + + | Address | [address] | | | [place] [address] | + + + | Home Phone [...] + + | 01/28/ | Refill | [facility] | Kirk French | Medication Refill | | 2019 | | [facility] | MD Brea [address] | | | | | PRIMARY CARE [address] | [address] | | | | | [address] | [place] [address] | | | | | [place], [place] | [phone] | | | | | [address] | | | | | | [phone] | | | +--------+--------+ + + + [...] | | | | | | [place] [address] | | | | | | [phone] | | | | | | | [...] | | | | | | [place] [address] | | | | | | [phone] | | | | | | | | +--------+ + + + + | 05/21/ | Implant | Cardiology | Daljit Singletary, | Remote Device | | 2019 | Monitor | | [address] [facility] | Interrogation | | | | | [place], | (Primary Dx); | | | | | [place] [address] | Pacemaker; | | | | | [phone] | Sinoatrial node | | | | | | dysfunction (HCC) | | | | | | with symptomatic | | | | | | bradycardia | +--------+ + + + + documented as of this encounter Visit Diagnoses Not on filedocumented in this encounter"
--- OUTSIDE RECORDS SUMMARY | ~2020-04-13 | XMS | Encounter Summary ---
Demographics + + + | Address | [address] | | | [place] [address] | + + + | Home Phone [...] Providers + +------+ + | Care Assistant Community Manager Name | Role | Phone | [...] | CARDIOLOGY [address] | [address] [place] | Interrogation | | | | [place], | [place], | (Primary Dx); | | | | [place] [address] | [place] [address] | Presence of | | | | [phone] | [phone] | permanent cardiac | | | | [...] | | | | | | [place] [address] | | | | | | [phone] | | | | | | | [...] | | | | | | [place] [address] | | | | | | [phone] | | | | | | | | +--------+ + + + + | 05/21/ | Implant | Cardiology | Daljit Singletary, | Remote Device | | 2019 | Monitor | | [address] [place] | Interrogation | | | | | [place], | (Primary Dx); | | | | | [place] [address] | Pacemaker; | | | | | [phone] | Sinoatrial node | | | | [...]
--- OUTSIDE RECORDS SUMMARY | ~2020-04-13 | XMS | Encounter Summary ---
Demographics + + + | Address | [address] | | | [place] [address] | + + + | Home Phone [...] Team Providers + +------+ + | Care Stretcher And Drier Name | Role | Phone | + +------+ + | Kirk French MD | PCP | | + +------+ + Encounter Details +--------+ + + + + | Date | Type | Department | Care Team | Description | +--------+ + + + + | 01/07/ | Hospital | [facility] | Conversion | | | 2017 | Encounter | [facility] | Transaction, | | | | | ULTRASOUND [address] | Provider Unknown | | | | | [address] [facility] [address] | [phone] | | | | | [place] | | | | | | [address] | Kirk French | | | | | [phone] | MD Eva Guidry | | | | | | [address] [place], | | | | | | [place] [address] | | | | | | [phone] | | | | | | | [...] + + + +---------+ + + | [place]ar[place]-3 Fatty | CAPS, one capsule by | [...] | | | | | | [place] [address] | | | | | | [phone] | | | | | | | | +--------+ + + + + | 05/01/ | Procedure | Cardiology | | | | 2019 | visit | | | | +--------+ + + + + | 05/01/ | Office | Cardiology | Silvia, | | | 2019 | Visit | | [address] | | | | | | [place], | | | | | | [place] [address] | | | | | | [phone] | | | | | | | | +--------+ + + + + | 05/21/ | Implant | Cardiology | Daljit Singletary, | Remote Device | | 2019 | Monitor | | [address] [place] | Interrogation | | | | | [place], | (Primary Dx); | | | | | [place] [address] | Pacemaker; | | | | | [phone] | Sinoatrial node | | | | | | dysfunction (HCC) | | | | | | with symptomatic | | | | | | bradycardia | +--------+ + + + + documented as of this encounter Visit Diagnoses Not on filedocumented in this encounter"
--- OUTSIDE RECORDS SUMMARY | ~2020-04-13 | XMS | Encounter Summary ---
Demographics + + + | Address | [address] | | | [place] [address] | + + + | Home Phone [...] Providers + +------+ + | Care Channel Cementer Outsole Machine Name | Role | Phone | [...] + + | 08/23/ | Telephone | [facility] | AnshujohnsoncherelleDaljit, | Other (edema is | | 2015 | | CARDIOLOGY [address] | MD [address] [place] | blood clots) | | | | [place], | [place], | | | | | [place] [address] | [place] [address] | | | | | [phone] | [phone] | | | | | | | [...] | | | | | | [place] [address] | | | | | | [phone] | | | | | | | | +--------+ + + + + | 05/01/ | Procedure | Cardiology | | | | 2019 | visit | | | | +--------+ + + + + | 05/01/ | Office | Cardiology | Silvia, | | | 2019 | Visit | | [address] | | | | | | [place], | | | | | | [place] [address] | | | | | | [phone] | | | | | | | | +--------+ + + + + | 05/21/ | Implant | Cardiology | Daljit Singletary, | Remote Device | | 2020 | Monitor | | [address] [facility] | Interrogation | | | | | [place] [place], | (Primary Dx); | | | | | [place] [address] | Pacemaker; | | | | | [phone] | Sinoatrial node | | | | | | dysfunction (HCC) | | | | | | with symptomatic | | | | | | bradycardia | +--------+ + + + + documented as of this encounter Visit Diagnoses Not on filedocumented in this encounter"
--- OUTSIDE RECORDS SUMMARY | ~2020-04-13 | XMS | Encounter Summary ---
Demographics + + + | Address | [address] | | | [place] [address] | + + + | Home Phone [...] Providers + +------+ + | Care Blueprint Duplicator Name | Role | Phone | + [...] 2017 | | CARDIOLOGY [address] | BOWLING BALL MOLDER [address] | | | | | [place], | [place], [place] | | | | | [place] [address] | [address] | | | | | [phone] | | | +--------+--------+ + + + [...] W | | | | | | [place], | | | | | | [place] [address] | | | | | | [phone] | | | | | | | | +--------+ + + + + | 05/01/ | Procedure | Cardiology | | | | 2019 | visit | | | | +--------+ + + + + | 05/01/ | Office | Cardiology | Silvia, | | | 2019 | Visit | | [address] | | | | | | [place], | | | | | | [place] [address] | | | | | | [phone] | | | | | | | | +--------+ + + + + | 05/21/ | Implant | Cardiology | Daljit Singletary, | Remote Device | | 2019 | Monitor | | [address] [facility] | Interrogation | | | | | [place], | (Primary Dx); | | | | | [place] [address] | Pacemaker; | | | | | [phone] | Sinoatrial node | | | | | | dysfunction (HCC) | | | | | | with symptomatic | | | | | | bradycardia | +--------+ + + + + documented as of this encounter Visit Diagnoses Not on filedocumented in this encounter"
--- OUTSIDE RECORDS SUMMARY | ~2020-04-13 | XMS | Encounter Summary ---
Demographics + + + | Address | [address] | | | [place] [address] | + + + | Home Phone [...] Providers + +------+ + | Care Core Machine Operator Name | Role | Phone [...] Eva ROUSE | | | | | [place], [place] | [address] | | | | | [address] | [place] [address] | | | | | [phone] | [phone] | | | | | | | [...] W | | | | | | [place], | | | | | | [place] [address] | | | | | | [phone] | | | | | | | | +--------+ + + + + | 05/01/ | Procedure | Cardiology | | | | 2019 | visit | | | | +--------+ + + + + | 05/01/ | Office | Cardiology | Silvia, | | | 2019 | Visit | | [address] | | | | | | [place], | | | | | | [place] [address] | | | | | | [phone] | | | | | | | | +--------+ + + + + | 05/21/ | Implant | Cardiology | Daljit Singletary, | Remote Device | 2019 | Monitor | | MD [address] [place] | Interrogation | | | | | [place], | (Primary Dx); | | | | | [place] [address] | Pacemaker; | | | | | [phone] | Sinoatrial node | | | | [...]
--- OUTSIDE RECORDS SUMMARY | ~2020-04-13 | XMS | Encounter Summary ---
Demographics + + + | Address | [address] | | | [place] [address] | + + + | Home Phone [...] Team Providers + +------+ + | Care Cae Engineer Name | Role | Phone | + +------+ + | Kirk French MD | PCP | | + +------+ + Encounter Details +--------+ + + + + | Date | Type | Department | Care Team | Description | +--------+ + + + + | 08/29/ | Hospital | [facility] | [place] | DVT (deep venous | | 2015 | Encounter | MED CTR ULTRASOUND | PARISA [place] [address] | thrombosis), | | | | [address] [place] | [place], | bilateral (HCC) | | | | [place], [place] | [place] [address] | | | | | [address] | [phone] | | | | | [phone] | | | +--------+ + + + [...] + + + +---------+ + + | [place]-3 Fatty | CAPS, one capsule by | [...] | | | | | | | #[id number], exp 07/2016 | | | | | [...] | | | | | | [place] [address] | | | | | | [phone] | | | | | | | [...] | | | | | | [place] [address] | | | | | | [phone] | | | | | | | | +--------+ + + + + | 05/21/ | Implant | Cardiology | Daljit Singletary, | Remote Device | 2019 | Monitor | | MD [address] [place] | Interrogation | | | | | [place], | (Primary Dx); | | | | | [place] [address] | Pacemaker; | | | | | [phone] | Sinoatrial node | | | | [...] DVT. COMPARISON: None. TECHNIQUE: Compression | [facility] | | sonography was performed from the groin through the popliteal fossa | [facility] | | in both [...] conveyed to the ordering provider, by the housing counselor, | | | immediately following the exam. [...] to the ordering provider, by the | |housing counselor, immediately following the exam. | | | | | |Dictated and Signed by: Emmanuel Gibbons MD | | Electronically signed: 08/29/2015 3:25 PM | + + + + + + + | Performing | Address | City/State/Zipcode | Phone Number | | Organization | | | | + + + + + | [facility] | [address] | [place] | [phone] | | [facility] | | [address] | | | - IMAGING | | | | + + + + + documented in this encounter Visit Diagnoses + + | Diagnosis | + + | DVT (deep venous thrombosis), bilateral | + + documented in this encounter"
--- OUTSIDE RECORDS SUMMARY | ~2020-04-13 | XMS | Encounter Summary ---
Demographics + + + | Address | [address] | | | [place] [address] | + + + | Home Phone [...] + +------+ + | Care Director Of Recruitment Name | Role | Phone | + [...] [address] | | | | | [place], | [place], | | | | | [place] [address] | [place] [address] | | | | | [phone] | [phone] | | | | | | | [...] W | | | | | | [place], | | | | | | [place] [address] | | | | | | [phone] | | | | | | | | +--------+ + + + + | 05/01/ | Procedure | Cardiology | | | | 2019 | visit | | | | +--------+ + + + + | 05/01/ | Office | Cardiology | Silvia, | | | 2019 | Visit | | [address] | | | | | | [place], | | | | | | [place] [address] | | | | | | [phone] | | | | | | | | +--------+ + + + + | 05/21/ | Implant | Cardiology | Daljit Singletary, | Remote Device | | 2020 | Monitor | | [address] [facility] | Interrogation | | | | | [place], | (Primary Dx); | | | | | [place] [address] | Pacemaker; | | | | | [phone] | Sinoatrial node | | | | [...]
--- OUTSIDE RECORDS SUMMARY | ~2020-04-13 | XMS | Encounter Summary ---
Demographics + + + | Address | [address] | | | [place] [address] | + + + | Home Phone [...] Providers + +------+ + | Care Stock Tracer Name | Role | Phone | + +------+ + | Kirk French MD | PCP | | + +------+ + Encounter Details +--------+---------+ + + + | Date | Type | Department | Care Team | Description | +--------+---------+ + + + | 01/05/ | Surgery | [facility] | Emmanuel Daniel MD | EGD | | 2019 | | MED CTR MP INTRA OP | [address], [place] | | | | | [address] | [address] [place], [place] | | | | | [place], [place] | [address] | | | | | [address] | | | | | | [phone] | | | +--------+---------+ + + + [...] for a few hours. Date Last Reviewed: 09/22/201619999216-6220 [employer]. [address] [place] [address]. All righ ts reserved. This information is [...] vomiting, or vomiting blood Date Last Reviewed: 05/22/201619990179-7390 [employer]. [address] [place] [address]. All righ ts reserved. This information is [...] You can't be awakened Date Last Reviewed: 09/08/201619994322-4420 [employer]. [address] [place] [address], [place] [address]. All righ ts reserved. This information is [...] + + + +---------+ + + | Burley-3 Fatty | CAPS, one capsule by | [...] | | | | | | [place] [address] | | | | | | [phone] | | | | | | | [...] | | | | | | [place] [address] | | | | | | [phone] | | | | | | | | +--------+ + + + + | 05/21/ | Implant | Cardiology | Daljit Singletary, | Remote Device | | 2019 | Monitor | | [address] | Interrogation | | | | | [place], | (Primary Dx); | | | | | [place] [address] | Pacemaker; | | | | | [phone] | Sinoatrial node | | | | [...] [address], | REFERENCE LAB | | [place] [id number] Therapeutic Riding Instructor: Miguel Galarza MD, Phone: | THALIARP - KINA | | [phone] | | + + + + + + + + | Performing | Address | City/State/Zipcode | Phone Number | | Organization | | | | + + + + + | REFERENCE LAB | [address] | [place], [place] | [phone] | | [facility] | [facility] | [address] | | + + + + + [...] | REFERENCE LAB | | [place] [id number] Therapeutic Riding Instructor: Miguel Galarza MD, Phone: | ARSH CASTANON | | [phone] | | + + + + + + + + | Performing | Address | City/State/Zipcode | Phone Number | | Organization | | | | + + + + + | REFERENCE LAB | [address] [facility] [address] | [place], [place] | [phone] | | ARSH CASTANON | [facility] | [address] | | + + + + + [...] [address] | [place] | [phone] | | [facility] | | [address] | | | - LABORATORY | | [...] [address] | [place] | [phone] | | [facility] | | [address] | | | - LABORATORY | | [...] [address] | [place] | [phone] | | [facility] | | [address] | | | - LABORATORY | | [...] [address] | [place] | [phone] | | [facility] | | [address] | | | - LABORATORY | | [...] [address] | [place] | [phone] | | [facility] | | [address] | | | - LABORATORY | | [...] [address] | [place] | [phone] | | [facility] | | [address] | | | - LABORATORY | | | | + + + + + DAVIAN (01/05/2019 8:36 AM PST) + + | Specimen | + + | | + + + + -+ | Narrative | Performed At | + + -+ | | [facility] | | GastroenterologyPatient Name: Moe Venegas Date: | PROVATION | | 01/05/2019 8:36 AMMRN: [id number] #: [id number] of : | | | 9Admit Type: AmbulatoryAge: 58Room: [facility] 01Gender: MaleNote | | | Status: FinalizedAttending MD: Emmanuel Daniel , [facility]: | | | Upper GI endoscopyIndications: Diarrhea, Weight | | | lossProviders: Emmanuel Daniel MD, Heidi An, | | | RN, Kim Hicks, Cooking Show Host, | | | Jarett Barakat MD (Anesthesia [...] physician, the nurse, the anesthesiologist and the aviation safety equipment technician | | | in the endoscopy [...] | | Imaging was performed using the NXTM Intelligent Chromo | | | Endoscopy (FICE) [...] Scope In: 8:43:57 AMScope Out: 8:49:50 AM [facility]. | | | [facility], [address] [place] [address] | | | [phone] | | |Recommendation: | | | - [...] |Scope Out: 8:49:50 AM | | | [facility], [address] [facility], [place], [place] | | | [address] | | + + -+ + +---------+ [...] | PROVATION | | 01/05/2019 8:36 AMMRN: [id number] #: [id number] of : | | | 9Admit Type: AmbulatoryAge: 58Room: [facility] 01Gender: MaleNote | | | Status: FinalizedAttending MD: Emmanuel Daniel , [facility]ITAL[facility]cedure: | | | ColonoscopyIndications: Clinically significant diarrhea of | | | unexplained origin, Weight lossProviders: | | | Emmanuel Daniel MD, Heidi An RN, Kim | | | Fiorella Hicks, Cooking Show Host, Jarett P. | | | MD Roshni [...] | | | the anesthesiologist and the aviation safety equipment technician in the endoscopy suite. 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 B. The specimen, labeled "[place], right colon" is received | | | in formalin and consists of six 0.2-0.3 cm lin fragments. Entirely | | | submitted in (B1). C. The specimen, labeled "[place], left colon" | | | is received in formalin and consists of six 0.2-0.3 cm lin-pink | | | fragments. Entirely submitted in (C1). am:AMB:portillo PERFORMING | | | LABORATORY: The technical component was performed by [facility] | | | [facility], [address] [place] [address] (Artificial Plastic Eye Maker: | | | Kailey Stafford MD; CLIA# [id number]). Professional interpretation was | | | performed by [facility], [facility], [address] | | | [place] [address] (Artificial Plastic Eye Maker: Ishaan | | | Anthony Dao; [facility]#: [id number]). Diagnostician: Ishaan Fitzpatrick | | | Sylwia [...]
--- OUTSIDE RECORDS SUMMARY | ~2020-04-13 | XMS | Encounter Summary ---
Demographics + + + | Address | [address] | | | [place] [address] | + + + | Home Phone [...] Providers + +------+ + | Care Automobile Washer Steam Name | Role | Phone | [...] + | 01/24/ | Telephone | [facility] | Daljit Singletary, | Other | | 2019 | | CARDIOLOGY [address] | MD [address] [place] | | | | | [place], | [place], | | | | | [place] [address] | [place] [address] | | | | | [phone] | [phone] | | | | | | | [...] | | | | | [place], | | | | | | [place] [address] | | | | | | [phone] | | | | | | | [...] | | | | | | [place] [address] | | | | | | [phone] | | | | | | | | +--------+ + + + + | 05/21/ | Implant | Cardiology | Daljit Singletary, | Remote Device | | 2019 | Monitor | | [address] [facility] | Interrogation | | | | | [place], | (Primary Dx); | | | | | [place] [address] | Pacemaker; | | | | | [phone] | Sinoatrial node | | | | | | dysfunction (HCC) | | | | | | with symptomatic | | | | | | bradycardia | +--------+ + + + + documented as of this encounter Visit Diagnoses Not on filedocumented in this encounter"
--- OUTSIDE RECORDS SUMMARY | ~2020-04-13 | XMS | Encounter Summary ---
Demographics + + + | Address | [address] | | | [place] [address] | + + + | Home Phone [...] + +------+ + | Care Corn Cutter Operator Name | Role | Phone | + +------+ + PCP | Unavailable | + +------+ + Encounter Details +--------+ + + + + | Date | Type | Department | Care Team | Description | +--------+ + + + + | 09/12/ | Hospital | [facility] | | | | 1993 | Encounter | MED CTR EMERGENCY | | | | | | CENTER [address] | | | | | | [place] | | | | | | [address] | | | | | | [phone] | | | +--------+ + + + [...] | | | | | | [place] [address] | | | | | | [phone] | | | | | | | [...] | | | | | | [place] [address] | | | | | | [phone] | | | | | | | | +--------+ + + + + | 05/21/ | Implant | Cardiology | Daljit Singletary, | Remote Device | 2019 | Monitor | | [address] [place] | Interrogation | | | | | [place], | (Primary Dx); | | | | | [place] [address] | Pacemaker; | | | | | [phone] | Sinoatrial node | | | | | | dysfunction (HCC) | | | | | | with symptomatic | | | | | | bradycardia | +--------+ + + + + documented as of this encounter Visit Diagnoses Not on filedocumented in this encounter"
--- OUTSIDE RECORDS SUMMARY | ~2020-04-13 | XMS | Encounter Summary ---
Demographics + + + | Address | [address] | | | [place] [address] | + + + | Home Phone [...] + +------+ + | Care Senior Director Finance Name | Role | Phone | [...] [place] | | | | | [place], [place] | [address] | | | | | [address] | [place] [address] | | | | | [phone] | [phone] | | | | | | | [...] W | | | | | | [place], | | | | | | [place] [address] | | | | | | [phone] | | | | | | | | +--------+ + + + + | 05/01/ | Procedure | Cardiology | | | | 2019 | visit | | | | +--------+ + + + + | 05/01/ | Office | Cardiology | [place], | | | 2019 | Visit | | [place] [address] | | | | | | [place], | | | | | | [place] [address] | | | | | | [phone] | | | | | | | | +--------+ + + + + | 05/21/ | Implant | Cardiology | Daljit Singletary, | Remote Device | | 2019 | Monitor | | MD [address] [facility] | Interrogation | | | | | [place], | (Primary Dx); | | | | | [place] [address] | Pacemaker; | | | | | [phone] | Sinoatrial node | | | | [...]
--- OUTSIDE RECORDS SUMMARY | ~2020-04-13 | XMS | Encounter Summary ---
Demographics + + + | Address | [address] | | | [place] [address] | + + + | Home Phone [...] + +------+ + | Care Financial Sales Manager Name | Role | Phone [...] CV INTRA OP | MD [address] | pectoris (HCC) | | | | [address] | [address] [place], | | | | | [place] | [place] [address] | | | | | [address] | [phone] | | | | | [phone] | | | +--------+ + + + [...] as a collagen plugis used on the cana triny site to close the site, you [...] by your healthcare provider Date Last Reviewed: 09/22/201619992286-1544 [employer]. [address] [place] [address]. All righ ts reserved. This information is [...] | | | | | | [place], | | | | | | [place] [address] | | | | | | [phone] | | | | | | | | +--------+ + + + + | 05/01/ | Procedure | Cardiology | | | | 2019 | visit | | | | +--------+ + + + + | 05/01/ | Office | Cardiology | [place], | | | 2019 | Visit | | PARISA [place] [address] | | | | | | [place], | | | | | | [place] [address] | | | | | | [phone] | | | | | | | | +--------+ + + + + | 05/21/ | Implant | Cardiology | Daljit Singletary, | Remote Device | | 2019 | Monitor | | MD [address] | Interrogation | | | | | [place], | (Primary Dx); | | | | | [place] [address] | Pacemaker; | | | | | [phone] | Sinoatrial node | | | | [...] (1960) MEDICAL RECORD NUMBER: | | | [id number] OF PROCEDURE: 01/25/2019 COLLET MAKER: Daljit | | | MD Gemini PROCEDURES [...] Sanchez, (1960) | | OF PROCEDURE: 01/25/2019PRIMARY TRACK LAYING SUPERVISOR: Daljit Singletary MD PROCEDURES | | [...] Aggressive medical management. | | at 9:33PRAT[facility]UM [facility]ALTHRY CARE PROVIDER:Kirk French MDFor additional detail [...]
--- OUTSIDE RECORDS SUMMARY | ~2020-04-13 | XMS | Encounter Summary ---
Demographics + + + | Address | [address] | | | [place] [address] | + + + | Home Phone [...] Team Providers + +------+ + | Care Habitat Biologist Name | Role | Phone | + [...] | CARDIOLOGY [address] | [address] [place] | reprogramming/check | | | | [place], | [place], | DO NOT DELETE | | | | [place] [address] | [place] [address] | (Primary Dx); | | | | [phone] | [phone] | Sinoatrial node | | | | [...] | | | | | | [place] [address] | | | | | | [phone] | | | | | | | | +--------+ + + + + | 05/01/ | Procedure | Cardiology | | | | 2019 | visit | | | | +--------+ + + + + | 05/01/ | Office | Cardiology | [place] | | | 2019 | Visit | | [place] [address] | | | | | | [place], | | | | | | [place] [address] | | | | | | [phone] | | | | | | | | +--------+ + + + + | 05/21/ | Implant | Cardiology | Daljit Singletary, | Remote Device | | 2019 | Monitor | | [address] [place] | Interrogation | | | | | [place], | (Primary Dx); | | | | | [place] [address] | Pacemaker; | | | | | [phone] | Sinoatrial node | | | | [...]
--- OUTSIDE RECORDS SUMMARY | ~2020-04-13 | XMS | Encounter Summary ---
Demographics + + + | Address | [address] | | | [place] [address] | + + + | Home Phone [...] Providers + +------+ + | Care Garment Patternmaker Name | Role | Phone | [...] [address] | | | | | [address] | [place] | | | | | [phone] | [address] | | | | | | [phone] | | | | | | | [...] | | | | | | [place] [address] | | | | | | [phone] | | | | | | | [...] | | | | | | [place] [address] | | | | | | [phone] | | | | | | | | +--------+ + + + + | 05/21/ | Implant | Cardiology | SunshinecherelleDaljit, | Remote Device | | 2019 | Monitor | | [address] [facility] | Interrogation | | | | | [place], | (Primary Dx); | | | | | [place] [address] | Pacemaker; | | | | | [phone] | Sinoatrial node | | | | [...]
--- OUTSIDE RECORDS SUMMARY | ~2020-04-13 | XMS | Encounter Summary ---
Demographics + + + | Address | [address] | | | [place] [address] | + + + | Home Phone [...] [facility] | Kirk French | Chronic pain | | 2017 | Encounter | MED CTR ULTRASOUND | MD Brea [place] | disorder; Stomach | | | | [address] [place] | [address] | ache; Obesity, | | | | [place], [place] | [place] [address] | unspecified | | | | [address] | [phone] | classification, | | | | [phone] | | unspecified obesity | | | [...] + + + +---------+ + + | Conyers-3 Fatty | CAPS, one capsule by | [...] | | | | | | [place] [address] | | | | | | [phone] | | | | | | | | +--------+ + + + + | 05/01/ | Procedure | Cardiology | | | | 2019 | visit | | | | +--------+ + + + + | 05/01/ | Office | Cardiology | [place], | | | 2019 | Visit | | PARISA [place] [address] | | | | | | [place], | | | | | | [place] [address] | | | | | | [phone] | | | | | | | | +--------+ + + + + | 05/21/ | Implant | Cardiology | Daljit Singletary, | Remote Device | | 2019 | Monitor | | MD [address] [facility] | Interrogation | | | | | [place], | (Primary Dx); | | | | | [place] [address] | Pacemaker; | | | | | [phone] | Sinoatrial node | | | | [...]
--- OUTSIDE RECORDS SUMMARY | ~2020-04-13 | XMS | Encounter Summary ---
Demographics + + + | Address | [address] | | | [place] [address] | + + + | Home Phone [...] Team Providers + +------+ + | Care Cryptographic Machine Operator Name | Role | Phone | + +------+ + PCP | Unavailable | + +------+ + Encounter Details +--------+ + + + + | Date | Type | Department | Care Team | Description | +--------+ + + + + | 04/28/ | [facility] | [facility] | Jonathan, | | | 2008 | Encounter | MED CTR EMERGENCY | Martell Cr MD [address] | | | | | CENTER [address] | [place] | | | | | [place] | [place] [address] | | | | | [address] | [phone] | | | | | [phone] | | | +--------+ + + + [...] | | | | | | [place], | | | | | | [place] [address] | | | | | | [phone] | | | | | | | | +--------+ + + + + | 05/01/ | Procedure | Cardiology | | | | 2019 | visit | | | | +--------+ + + + + | 05/01/ | Office | Cardiology | [place] | | | 2019 | Visit | | PARISA [place] [address] | | | | | | [place], | | | | | | [place] [address] | | | | | | [phone] | | | | | | | | +--------+ + + + + | 05/21/ | Implant | Cardiology | Daljit Singletary, | Remote Device | 2019 | Monitor | | MD [address] [place] | Interrogation | | | | | [place], | (Primary Dx); | | | | | [place] [address] | Pacemaker; | | | | | [phone] | Sinoatrial node | | | | | | dysfunction (HCC) | | | | | | with symptomatic | | | | | | bradycardia | +--------+ + + + + documented as of this encounter Visit Diagnoses Not on filedocumented in this encounter"
--- OUTSIDE RECORDS SUMMARY | ~2020-04-13 | XMS | Encounter Summary ---
Demographics + + + | Address | [address] | | | [place] [address] | + + + | Home Phone [...] + +------+ + | Care Professor Of Theater Name | Role | Phone | + +------+ + PCP | Unavailable | + +------+ + Encounter Details +--------+ + + + + | Date | Type | Department | Care Team | Description | +--------+ + + + + | 08/17/ | [facility] | [facility] | Evan Gandara MD | | | 2005 | Encounter | MED CTR LABORATORY | [address] [facility] | | | | | [address] | [place] | | | | | [place] | [address] | | | | | [address] | | | | | | [phone] | | | +--------+ + + + [...] | | | | | | [place], | | | | | | [place] [address] | | | | | | [phone] | | | | | | | | +--------+ + + + + | 05/01/ | Procedure | Cardiology | | | | 2019 | visit | | | | +--------+ + + + + | 05/01/ | Office | Cardiology | [place]via | | | 2019 | Visit | | PARISA [place] [address] | | | | | | [place], | | | | | | [place] [address] | | | | | | [phone] | | | | | | | | +--------+ + + + + | 05/21/ | Implant | Cardiology | Daljit Singletary, | Remote Device | 2019 | Monitor | | MD [address] [facility] [place] | Interrogation | | | | | [place], | (Primary Dx); | | | | | [place] [address] | Pacemaker; | | | | | [phone] | Sinoatrial node | | | | | | dysfunction (HCC) | | | | | | with symptomatic | | | | | | bradycardia | +--------+ + + + + documented as of this encounter Visit Diagnoses Not on filedocumented in this encounter"
--- OUTSIDE RECORDS SUMMARY | ~2020-04-13 | XMS | Encounter Summary ---
Demographics + + + | Address | [address] | | | [place] [address] | + + + | Home Phone [...] Team Providers + +------+ + | Care Playground Supervisor Name | Role | Phone | [...] + + | 07/13/ | Telephone | [facility] | Kirk French | Referral Question | | 2019 | | [facility] | MD [address] | | | | | [facility]IMARY [facility] [address] | [address] | | | | | [address] | [place] [address] | | | | | [place], [place] | [phone] | | | | | [address] | | | | | | [phone] | | | +--------+ + + + [...] | | | | | | [place] [address] | | | | | | [phone] | | | | | | | | +--------+ + + + + | 05/01/ | Procedure | Cardiology | | | | 2019 | visit | | | | +--------+ + + + + | 05/01/ | Office | Cardiology | [place], | | | 2019 | Visit | | PARISA Vernon [address] | | | | | | [place], | | | | | | [place] [address] | | | | | | [phone] | | | | | | | | +--------+ + + + + | 05/21/ | Implant | Cardiology | Daljit Singletary, | Remote Device | | 2019 | Monitor | | [address] [place] [place] | Interrogation | | | | | [place], | (Primary Dx); | | | | | [place] [address] | Pacemaker; | | | | | [phone] | Sinoatrial node | | | | | | dysfunction (HCC) | | | | | | with symptomatic | | | | | | bradycardia | +--------+ + + + + documented as of this encounter Visit Diagnoses Not on filedocumented in this encounter"
--- OUTSIDE RECORDS SUMMARY | ~2020-04-13 | XMS | Encounter Summary ---
Demographics + + + | Address | [address] | | | [place] [address] | + + + | Home Phone [...] Team Providers + +------+ + | Care Sofa Cover Inspector Name | Role | Phone | + +------+ + PCP | Unavailable | + +------+ + Encounter Details +--------+ + + + + | Date | Type | Department | Care Team | Description | +--------+ + + + + | 05/13/ | Hospital | [facility] | | | | 2007 | Encounter | MED CTR EMERGENCY | | | | | | [place] [address] | | | | | | [place] | | | | | | [address] | | | | | | [phone] | | | +--------+ + + + [...] | | | | | | [place] [address] | | | | | | [phone] | | | | | | | [...] | | | | | | [place] [address] | | | | | | [phone] | | | | | | | | +--------+ + + + + | 05/21/ | Implant | Cardiology | Daljit Singletary, | Remote Device | 2019 | Monitor | | [address] [place] | Interrogation | | | | | [place], | (Primary Dx); | | | | | [place] [address] | Pacemaker; | | | | | [phone] | Sinoatrial node | | | | | | dysfunction (HCC) | | | | | | with symptomatic | | | | | | bradycardia | +--------+ + + + + documented as of this encounter Visit Diagnoses Not on filedocumented in this encounter"
--- OUTSIDE RECORDS SUMMARY | ~2020-04-13 | XMS | Encounter Summary ---
Demographics + + + | Address | [address] | | | [place] [address] | + + + | Home Phone [...] Providers + +------+ + | Care Internal Wholesaler Name | Role | Phone | + [...] | | GASTROENTEROLOGY | [address] [place], [place] | | | | | [address] [place] | [address] [place], [place] | | | | | [address] [place], [place] | [address] | | | | | [address] | | | | | | [phone] | | | +--------+ + + + [...] | | | | | | [place] [address] | | | | | | [phone] | | | | | | | | +--------+ + + + + | 05/01/ | Procedure | Cardiology | | | | 2019 | visit | | | | +--------+ + + + + | 05/01/ | Office | Cardiology | Silvia, | | | 2019 | Visit | | PARISA Vernon [address] | | | | | | [place], | | | | | | [place] [address] | | | | | | [phone] | | | | | | | | +--------+ + + + + | 05/21/ | Implant | Cardiology | Daljit Singletary, | Remote Device | 2019 | Monitor | | [address] [place] | Interrogation | | | | | [place], | (Primary Dx); | | | | | [place] [address] | Pacemaker; | | | | | [phone] | Sinoatrial node | | | | [...]
--- OUTSIDE RECORDS SUMMARY | ~2020-04-13 | XMS | Encounter Summary ---
Demographics + + + | Address | [address] | | | [place] [address] | + + + | Home Phone [...] Team Providers + +------+ + | Care Hogshead Opener Name | Role | Phone | [...] CTR CASE | RN | (referral from [facility]) | | | | MANAGEMENT [address] | | | | | | [place], | | | | | | [place] [address] | | | | | | [phone] | | | +--------+ + + + [...] | | | | | | [place] [address] | | | | | | [phone] | | | | | | | [...] | | | | | | [place] [address] | | | | | | [phone] | | | | | | | | +--------+ + + + + | 05/21/ | Implant | Cardiology | Daljit Singletary, | Remote Device | 2019 | Monitor | | [address] [facility] | Interrogation | | | | | [place], | (Primary Dx); | | | | | [place] [address] | Pacemaker; | | | | | [phone] | Sinoatrial node | | | | | | dysfunction (HCC) | | | | | | with symptomatic | | | | | | bradycardia | +--------+ + + + + documented as of this encounter Visit Diagnoses Not on filedocumented in this encounter"
--- OUTSIDE RECORDS SUMMARY | ~2020-04-13 | XMS | Encounter Summary ---
Demographics + + + | Address | [address] | | | [place] [address] | + + + | Home Phone [...] Providers + +------+ + | Care Access Control Specialist Name | Role | Phone | + +------+ + PCP | Unavailable | + +------+ + Encounter Details +--------+ + + + + | Date | Type | Department | Care Team | Description | +--------+ + + + + | 06/23/ | [facility] | [facility] | Arthur Page MD | | | 2007 - | Encounter | MED CTR MED ONC | [address] [facility] | | | | | [address] [place] | [place] | | | 06/25/ | | [place] [address] | [address] | | | 2007 | | [phone] | | | +--------+ + + + [...] W | | | | | | [place], | | | | | | [place] [address] | | | | | | [phone] | | | | | | | | +--------+ + + + + | 05/01/ | Procedure | Cardiology | | | | 2019 | visit | | | | +--------+ + + + + | 05/01/ | Office | Cardiology | Silvia | | | 2019 | Visit | | [address] | | | | | | [place], | | | | | | [place] [address] | | | | | | [phone] | | | | | | | | +--------+ + + + + | 05/21/ | Implant | Cardiology | Daljit Singletary, | Remote Device | 2019 | Monitor | | MD [place] | Interrogation | | | | | [place], | (Primary Dx); | | | | | [place] [address] | Pacemaker; | | | | | [phone] | Sinoatrial node | | | | | | dysfunction (HCC) | | | | | | with symptomatic | | | | | | bradycardia | +--------+ + + + + documented as of this encounter Visit Diagnoses Not on filedocumented in this encounter"
--- OUTSIDE RECORDS SUMMARY | ~2020-04-13 | XMS | Encounter Summary ---
Demographics + + + | Address | [address] [place] [address] [address] | | | [place] [address] | + + + | Home Phone [...] [place] | | | | | [address] | | + + + + + Care Team Providers + +------+ + | Care Roll Cutting Operator Name | Role | Phone | + +------+ + | Darion Holden DO | PCP | | + +------+ + Encounter Details +--------+ + + + + | Date | Type | Department | Care Team | Description | +--------+ + + + + | 01/22/ | Transcribe | [facility] | Transcribe | | | 2020 | Orders | [facility] [address] | Encounter, Provider, | | | | | [address]ne [address] Mailcode: | [address] | | | | | [address] [place] for | [place] [address] | | | | | Health and Healing, | | | | | | Building [address] | | | | | | [place], [place] | | | | | | [address] | | | | | | [phone] | | | +--------+ + + + [...]
--- OUTSIDE RECORDS SUMMARY | ~2020-04-13 | XMS | Encounter Summary ---
Demographics + + + | Address | [address] | | | [place] [address] | + + + | Home Phone [...] Team Providers + +------+ + | Care Chick Room Supervisor Name | Role | Phone [...] | | | | [place] | [address] | | | | | [address] | | | | | | [phone] | | | +--------+ + + + [...] | | | | | | [place] [address] | | | | | | [phone] | | | | | | | [...] | | | | | | [place] [address] | | | | | | [phone] | | | | | | | | +--------+ + + + + | 05/21/ | Implant | Cardiology | Daljit Singletary, | Remote Device | 2019 | Monitor | | MD [address] | Interrogation | | | | | [place], | (Primary Dx); | | | | | [place] [address] | Pacemaker; | | | | | [phone] | Sinoatrial node | | | | | | dysfunction (HCC) | | | | | | with symptomatic | | | | | | bradycardia | +--------+ + + + + documented as of this encounter Visit Diagnoses Not on filedocumented in this encounter"
--- OUTSIDE RECORDS SUMMARY | ~2020-04-13 | XMS | Encounter Summary ---
Demographics + + + | Address | [address] | | | [place] [address] | + + + | Home Phone [...] + +------+ + | Care Used Car Sales Manager Name | Role | Phone [...] having issues with | | | | [place], | [place], | high blood pressure) | | | | [place] [address] | [place] [address] | | | | | [phone] | [phone] | | | | | | | [...] | | | | | | [place] [address] | | | | | | [phone] | | | | | | | [...] | | | | | | [place] [address] | | | | | | [phone] | | | | | | | | +--------+ + + + + | 05/21/ | Implant | Cardiology | Daljit Singletary, | Remote Device | 2019 | Monitor | | [address] | Interrogation | | | | | [place], | (Primary Dx); | | | | | [place] [address] | Pacemaker; | | | | | [phone] | Sinoatrial node | | | | | | dysfunction (HCC) | | | | | | with symptomatic | | | | | | bradycardia | +--------+ + + + + documented as of this encounter Visit Diagnoses Not on filedocumented in this encounter"
--- OUTSIDE RECORDS SUMMARY | ~2020-04-13 | XMS | Encounter Summary ---
Demographics + + + | Address | [address] | | | [place] [address] | + + + | Home Phone [...] Providers + +------+ + | Care Masonry Inspector Name | Role | Phone | [...] 2019 | | GASTROENTEROLOGY | [address] [place] | | | | | [address] [place] | [address] [place], [place] | | | | | [address] [place], [place] | [address] | | | | | [address] | | | | | | [phone] | | | +--------+--------+ + + + [...] | | | | | | [place] [address] | | | | | | [phone] | | | | | | | | +--------+ + + + + | 05/01/ | Procedure | Cardiology | | | | 2019 | visit | | | | +--------+ + + + + | 05/01/ | Office | Cardiology | Silvia, | | | 2019 | Visit | | PAR[address] | | | | | | [place], | | | | | | [place] [address] | | | | | | [phone] | | | | | | | | +--------+ + + + + | 05/21/ | Implant | Cardiology | Daljit Singletary, | Remote Device | 2019 | Monitor | | [address] [facility] | Interrogation | | | | | [place], | (Primary Dx); | | | | | [place] [address] | Pacemaker; | | | | | [phone] | Sinoatrial node | | | | | | dysfunction (HCC) | | | | | | with symptomatic | | | | | | bradycardia | +--------+ + + + + documented as of this encounter Visit Diagnoses Not on filedocumented in this encounter"
--- OUTSIDE RECORDS SUMMARY | ~2020-04-13 | XMS | Encounter Summary ---
Demographics + + + | Address | [address] [place] [address] [address] | | | [place] [address] | + + + | Home Phone [...] [place] | | | | | [address] | | + + + + + Care Team Providers + +------+ + | Care Arboriculture Teacher Name | Role | Phone | [...] Chest pain | Farooq Almaguer, | [address] | | | | | Bradycardia | DO [address] | [place] | | | | | Procedures | [address] | Mailcode: | | | | | | Palak Desai | [facility] | | | | | TRANSTHORACI | [place], [place] | for Health | | | | | C | [address] | and Healing, | | | | | ECHOCARDIOGR | Phone: | Building 1 | | | | | AM, ADULT | [phone] | [place], [place] | | | | | | Fax: | [address] | | | | | | [phone] | Phone: | | | | | | | [phone] | +--------+--------+ + + + + Reason [...] | | | | | | [place] [address] | | | | | | | Phone: | | | | | | | [phone] | | | | | | | Fax: | | | | | | | [phone] | | +--------+--------+ + + + + Encounter Details +--------+---------+ + + + | Date | Type | Department | Care Team | Description | +--------+---------+ + + + | 02/03/ | Office | Cardiology General | Arlette Drew, | Chest pain (Primary | | 2010 | Visit | at [facility] [address] | MD | Dx); Bradycardia; | | | | Ave Mailcode: CH7C | | Pacemaker | | | | [facility] | | | | | | and Healing, | | | | | | Building | | | | | | Floor [place], [place] | | | | | | [address] | | | | | | [phone] | | | +--------+---------+ + + + [...] per Dr. Drew's note. Farooq Jamil DO Rf Manager Clinical brim buster/ Division of Cardiovascular Medicine Yajaira Borges, [place] - 02/09/2011 12:59 PM PDT PACEMAKER HISTORY Primary Care Provider: Darion Holden DO Professor Of Languages: Arlette Drew MD Moe Sanchez is a [...] chamber permanent pacemaker implantation on 06/14/09 in [place], Chronic smoker, mild DIDIER, bip olar disorder with anxiety who presents for second opinion regarding his syncopal episodes. Pt. started noticing dizzy spells and episodes of syncope about 3 years ago , pacemaker was put at the recommendation of Professor Of Languages Dr. Singletary from [place]. [place]. Pt. states lala bhatti was put>1 [...] Dr. Omero DREW MD CARDIOLOGY - GENERAL [address] Mailcode: [facility], [address] [facility] [address] documented in this en counter [...] ([facility]) | [facility] | | [facility] [address] [facility] | REGIONAL | | [place] [address] | LABORATORY | + + + + + + + + | Performing | Address | City/State/Zipcode | Phone Number | | Organization | | | | + + + + + | [facility] | [address] | [place] [address] | | | LABORATORY | | | [...] RLB ([facility]) | | | [place] [address] | | | [place] [facility] [place] [address] | | + + + + + + + + | Performing | Address | City/State/Zipcode | Phone Number | | Organization | | | | + + + + + | [facility] | [address] | [place] [address] | | | LABORATORY | | | [...] | | | DEPARTMENT | | | GUAMANIAN | | | OF | | | [...] | + + + + + | [facility] DEPARTMENT | [address] | [place] [address] | | | PATHOLOGY | [address] [...] OF | [address] | [place], [place] | | | CARDIOLOGY | [address] | [address] | | + + + + + [...] OF | [address] | [place], [place] | | | CARDIOLOGY | [address] | [address] | | + + + + + [...] view image for the detailed interpretation from [employer] results. | CARDIOLOGY | + + + + + + + + | Performing | Address | City/State/Zipcode | Phone Number | | Organization | | | | + + + + + | [facility] | [address] | [place], [place] | | | CARDIOLOGY | [address] | [address] | | + + + + + documented in this encounter Visit Diagnoses + + | Diagnosis | + + | Chest pain - Primary Chest pain, unspecified | + + | Bradycardia Other specified cardiac dysrhythmias | + + | Pacemaker Cardiac pacemaker in situ | + + documented in this encounter
--- OUTSIDE RECORDS SUMMARY | ~2020-04-13 | XMS | Encounter Summary ---
Demographics + + + | Address | [address] | | | [place] [address] | + + + | Home Phone [...] Team Providers + +------+ + | Care Trailer Technician Name | Role | Phone | [...] abdominal | [address] | [address], | | | | | pain | [address] [place] | [address] | | | | | Chronic pain | [address] | [place], | | | | | syndrome | [place], [place] | [place] [address] | | | | | Procedures | [address] | Phone: | | | | | Office Visit | Phone: | [phone] | | | | | | [phone] | Fax: | | | | | | Fax: | [phone] | | | | | | [phone] | | +--------+--------+ + + + + Encounter Details +--------+---------+ + + + | Date | Type | Department | Care Team | Description | +--------+---------+ + + + | 12/02/ | Office | [facility] [place] | Emmanuel Daniel MD | Diarrhea, | | 2018 | Visit | GASTROENTEROLOGY | [address], [place] | unspecified type | | | | [address] [place] | [address] [place], [place] | (Primary Dx); Weight | | | | [address] [place], [place] | [address] | loss, | | | | [address] | | unintentional; | | | | [phone] | | Generalized | | | | [...] | | | | | | [place] [address] | | | | | | [phone] | | | | | | | | +--------+ + + + + | 05/01/ | Procedure | Cardiology | | | | 2019 | visit | | | | +--------+ + + + + | 05/01/ | Office | Cardiology | Silvia, | | | 2019 | Visit | | PARISA [address] | | | | | | [place], | | | | | | [place] [address] | | | | | | [phone] | | | | | | | | +--------+ + + + + | 05/21/ | Implant | Cardiology | Daljit Singletary, | Remote Device | 2019 | Monitor | | [address] [facility] | Interrogation | | | | | [place], | (Primary Dx); | | | | | [place] [address] | Pacemaker; | | | | | [phone] | Sinoatrial node | | | | [...]
--- OUTSIDE RECORDS SUMMARY | ~2020-04-13 | XMS | Clinical Summary ---
Demographics + + + | Address | [address] | | | [place] [address] | + + + | Home Phone | | + + + | Preferred Language | Unknown | + + + | Marital Status | | + + + | Mandaen Affiliation | 1013 | + + + | Race | Unknown | + + + | Ethnic Group | Unknown | + + + Author + + + | Author | [employer] (Historical as of | | | 07-08-19) | + + + | Organization | [facility] [employer] (Historical as of | | | 07-08-19) [...] +------+ + | Care Home Health Care Respiratory Therapist Name | Role | Phone | [...] + | AUTO INSURANCE | AUTO | [id number] | | | | | | INSURA | | | | | | | NCE | | | | | | | GENERI | | | | | | | C | | | | | + +--------+ +------+-------+ + | AUTO INSURANCE | AUTO | [id number] | | | | | | INSURA | [id number] | | | | | | NCE | | | | | | | GENERI | | | | | | | C | | | | | + +--------+ +------+-------+ + | MEDICARE | MEDICA | [id number] | | | [address] | | | RE | | | | [place], [place] [address] | | | IP-OP | | | | | + +--------+ +------+-------+ + | [facility] | [place] | [id number] | | | | | | | [...] | Self | [birth year] | Home: | [address] | | | al/Fam | | 9 | [address]- | [address] [place], [place] | | | roxanne | | | [address] | [address] | + +--------+ +--------+ + + | AMILCAR GAY | Third | Self | [birth year] | Home: | [address] | | | Democrat | | 9 | +- | [place], [place] | | | Liabil | | | [address] | [address] | | | ity | | | | | + +--------+ +--------+ + + | AMILCAR GAY | Third | Self | [birth year] | Home: | [address] | | | Democrat | | 1960 | +- | [place], [place] | | | Liabil | | | [address] | [address] | | | ity | | | | | + +--------+ +--------+ + +
--- OUTSIDE RECORDS SUMMARY | ~2020-04-13 | XMS | Encounter Summary ---
Demographics + + + | Address | [address] | | | [place] [address] | + + + | Home Phone [...] Providers + +------+ + | Care Methods Examiner Name | Role | Phone | [...] | CARDIOLOGY [address] | MD [address] [place] | | | | | [place], | [place], | | | | | [place] [address] | [place] [address] | | | | | [phone] | [phone] | | | | | | | [...] | | | | | | [place], | | | | | | [place] [address] | | | | | | [phone] | | | | | | | | +--------+ + + + + | 05/01/ | Procedure | Cardiology | | | | 2019 | visit | | | | +--------+ + + + + | 05/01/ | Office | Cardiology | Silvia, | | | 2019 | Visit | | [address] | | | | | | [place], | | | | | | [place] [address] | | | | | | [phone] | | | | | | | | +--------+ + + + + | 06/30/ | Implant | Cardiology | Daljit Singletary, | Remote Device | | 2019 | Monitor | | [address] [facility] [place] | Interrogation | | | | | [place], | (Primary Dx); | | | | | [place] [address] | Pacemaker; | | | | | [phone] | Sinoatrial node | | | | | | dysfunction (HCC) | | | | | | with symptomatic | | | | | | bradycardia | +--------+ + + + + documented as of this encounter Visit Diagnoses Not on filedocumented in this encounter"
--- OUTSIDE RECORDS SUMMARY | ~2020-04-13 | XMS | Encounter Summary ---
Demographics + + + | Address | [address] | | | [place] [address] | + + + | Home Phone [...] + +------+ + | Care Talent Acquisition Operations Manager Name | Role | Phone [...] [address] [place] | | | | | [place], [place] | [address] | | | | | [address] | [place] [address] | | | | | [phone] | [phone] | | | | | | | [...] | | | | | | [place] [address] | | | | | | [phone] | | | | | | | [...] | | | | | | [place] [address] | | | | | | [phone] | | | | | | | | +--------+ + + + + | 05/21/ | Implant | Cardiology | Daljit Singletary, | Remote Device | 2019 | Monitor | | MD [address] [place] | Interrogation | | | | | [place], | (Primary Dx); | | | | | [place] [address] | Pacemaker; | | | | | [phone] | Sinoatrial node | | | | [...] | | | Basophils | performed at [facility];[address] | 10*3/uL | LAB | | | | [address] | | | | | | [address];[place] [address] | | | | + + + [...] | | | | | [address];[place] [address] | | | | + + [...] | | | | | | at [facility];[address] [facility] | | | | | | [facility];[place], [place] | | | | | | [address] | | | | + + + [...]
--- OUTSIDE RECORDS SUMMARY | ~2020-04-13 | XMS | Encounter Summary ---
Demographics + + + | Address | [address] | | | [place] [address] | + + + | Home Phone [...] Providers + +------+ + | Care Licensed Mass Real Estate Appraiser Name | Role | Phone | [...] | | | | | [address] | | | | | | [place], [place] | | | | | | [address] | | | | | | [phone] | | | +--------+ + + + [...] | | | | | | [place] [address] | | | | | | [phone] | | | | | | | [...] | | | | | | [place] [address] | | | | | | [phone] | | | | | | | | +--------+ + + + + | 05/21/ | Implant | Cardiology | Daljit Singletary, | Remote Device | 2019 | Monitor | | MD [address] [place] | Interrogation | | | | | [place], | (Primary Dx); | | | | | [place] [address] | Pacemaker; | | | | | [phone] | Sinoatrial node | | | | [...]
--- OUTSIDE RECORDS SUMMARY | ~2020-04-13 | XMS | Encounter Summary ---
Demographics + + + | Address | [address] | | | [place] [address] | + + + | Home Phone [...] Providers + +------+ + | Care Field Operations Supervisor Name | Role | Phone [...] + | 01/02/ | Telephone | [facility] | Daljit Singletary, | Other (chest pain) | | 2018 | | CARDIOLOGY [address] | MD [address] | | | | | [place], | [place], | | | | | [place] [address] | [place] [address] | | | | | [phone] | [phone] | | | | | | | [...] | | | | | | [place] [address] | | | | | | [phone] | | | | | | | | +--------+ + + + + | 05/01/ | Procedure | Cardiology | | | | 2019 | visit | | | | +--------+ + + + + | 05/01/ | Office | Cardiology | Silvia, | | | 2019 | Visit | | [address] | | | | | | [place], | | | | | | [place] [address] | | | | | | [phone] | | | | | | | | +--------+ + + + + | 05/21/ | Implant | Cardiology | Daljit Singletary, | Remote Device | | 2019 | Monitor | | MD [address] | Interrogation | | | | | [address] [place], | (Primary Dx); | | | | | [place] [address] | Pacemaker; | | | | | [phone] | Sinoatrial node | | | | | | dysfunction ([facility]) | | | | | | with symptomatic | | | | | | bradycardia | +--------+ + + + + documented as of this encounter Visit Diagnoses Not on filedocumented in this encounter"
--- OUTSIDE RECORDS SUMMARY | ~2020-04-13 | XMS | Encounter Summary ---
Demographics + + + | Address | [address] [place] [address] [address] | | | [place] [address] | + + + | Home Phone [...] [place] | | | | | [address] | | + + + + + Care Team Providers + +------+ + | Care Press Writer Name | Role | Phone | [...] Yao | | | | | at [facility] | [facility] | | | | | [address] | [place] [address] | | | | | [address] | | | | | | [place], [address] [place] [address] | | | | | | [place], [place] | | | | | | [address] | | | | | | [phone] | | | +--------+ + + + [...] view image for the detailed interpretation from [employer] results. | CARDIOLOGY | + + + + + + + + | Performing | Address | City/State/Zipcode | Phone Number | | Organization | | | | + + + + + | [facility] | [address] | [place], [place] | | | CARDIOLOGY | [address] | [address] | | + + + + + documented in this encounter Visit Diagnoses Not on filedocumented in this encounter"
--- OUTSIDE RECORDS SUMMARY | ~2020-04-13 | XMS | Encounter Summary ---
Demographics + + + | Address | [address] | | | [place] [address] | + + + | Home Phone [...] [address] | | | | | | [place], [place] | (Fax) | | | | | [address] | | | | | | [phone] | | | +--------+ + + + [...] | | | | | | [place] [address] | | | | | | [phone] | | | | | | | | +--------+ + + + + | 05/01/ | Procedure | Cardiology | | | | 2019 | visit | | | | +--------+ + + + + | 05/01/ | Office | Cardiology | Silvia, | | | 2019 | Visit | | PARISA [address] | | | | | | [place], | | | | | | [place] [address] | | | | | | [phone] | | | | | | | | +--------+ + + + + | 05/21/ | Implant | Cardiology | Daljit Singletary, | Remote Device | | 2019 | Monitor | | [address] [place] | Interrogation | | | | | [place], | (Primary Dx); | | | | | [place] [address] | Pacemaker; | | | | | [phone] | Sinoatrial node | | | | | | dysfunction (HCC) | | | | | | with symptomatic | | | | | | bradycardia | +--------+ + + + + documented as of this encounter Visit Diagnoses Not on filedocumented in this encounter"
--- OUTSIDE RECORDS SUMMARY | ~2020-04-13 | XMS | Encounter Summary ---
Demographics + + + | Address | [address] | | | [place] [address] | + + + | Home Phone [...] Providers + +------+ + | Care Pocket Setter Lockstitch Name | Role | Phone | + +------+ + | Michael Amanda DO | PCP | | + +------+ + Encounter Details +--------+ + + + + | Date | Type | Department | Care Team | Description | +--------+ + + + + | 11/03/ | Emergency | [facility] | Eliel Calzada, | Palpitations; | | 2013 - | | MEDICAL CENTER | MD Chiquis JOHNSON | Atypical chest pain | | | | EMERGENCY CENTER | [place] [facility] [place] | | | 11/04/ | | [address] | [address] | | | 2013 | | [place], [place] | | | | | | [address] | | | | | | [phone] | | | +--------+ + + + [...] | | | | | | [place] [address] | | | | | | [phone] | | | | | | | | +--------+ + + + + | 05/01/ | Procedure | Cardiology | | | | 2019 | visit | | | | +--------+ + + + + | 05/01/ | Office | Cardiology | Silvia | | | 2019 | Visit | | [address] | | | | | | [place], | | | | | | [place] [address] | | | | | | [phone] | | | | | | | | +--------+ + + + + | 05/21/ | Implant | Cardiology | Daljit Singletary, | Remote Device | | 2019 | Monitor | | [address] | Interrogation | | | | | [place], | (Primary Dx); | | | | | [place] [address] | Pacemaker; | | | | | [phone] | Sinoatrial node | | | | [...] CHEST 2 VIEW FRONTAL | | AND ZNNVSBQ7511/03/2014 11:56 PM History: 54 years. Male. Acute [...] [place] | | | | | | [address] | | | | + + + + + -+ | Red Blood | 4.97Comment: Testing | 4.20 - 5.70 | EXTERNAL | | | Cells | performed at [facility];888 | M/uL | LAB | | | Counted | [address];[place] | | | | | | [address] | | | | + + + + + -+ | Hemoglobin | 16.8Comment: Testing | 13.2 - 17.0 | EXTERNAL | | | | performed at [facility];888 | g/dL | LAB | | | | [address];[place] | | | | | | [address] | | | | + + + + + -+ | Hematocrit, | 48.2Comment: Testing | 39.0 - 50.0 % | EXTERNAL | | | POC | performed at [facility];888 | | LAB | | | | [address];[place] | | | | | | [address] | | | | + + + + + -+ | MCV | 97.1Comment: Testing | 80.0 - 100.0 fl | EXTERNAL | | | | performed at [facility];888 | | LAB | | | | [address];[place] | | | | | | [address] | | | | + + + + + -+ | MCH | 33.9Comment: Testing | 27.0 - 34.0 pg | EXTERNAL | | | | performed at [facility];888 | | LAB | | | | [address];[place] | | | | | | [address] | | | | + + + + + -+ | MCHC | 34.9Comment: Testing | 32.0 - 35.5 | EXTERNAL | | | | performed at [facility];888 | g/dL | LAB | | | | [address];[place] | | | | | | [address] | | | | + + + + + -+ | RDW-CV | 42.4Comment: Testing | 37 - 53 fl | EXTERNAL | | | | performed at [facility];888 | | LAB | | | | [address];[place] | | | | | | [address] | | | | + + + + + -+ | Platelet | 143 (L)Comment: Testing | 150 - 400 K/uL | EXTERNAL | | | Count | performed at [facility];888 | | LAB | | | Plasma | [address];[place] | | | | | | [address] | | | | + + + + + -+ | MPV | 9.0Comment: Testing | fl | EXTERNAL | | | | performed at [facility];888 | | LAB | | | | [address];[place] | | | | | | [address] | | | | + + + + + -+ | Differentia | AUTOMATEDComment: | | EXTERNAL | | | l Type | Testing performed at | | LAB | | | | [facility];[address] | | [address];[place] [address] | | | | + + + + + -+ | % Segmented | 61.6Comment: Testing | % | EXTERNAL | | | | performed at [facility];888 | | LAB | | | Neutrophils | [address];[place] | | | | | | [address] | | | | + + + + + -+ | % | 27.8Comment: Testing | % | EXTERNAL | | | Lymphocytes | performed at [facility];888 | | LAB | | | | [address];[place] | | | | | | [address] | | | | + + + + + -+ | % Monocytes | 8.7Comment: Testing | % | EXTERNAL | | | | performed at [facility];888 | | LAB | | | | [address];[place] | | | | | | [address] | | | | + + + + + -+ | % | 0.8Comment: Testing | % | EXTERNAL | | | Eosinophils | performed at [facility];888 | | LAB | | | | [address];[place] | | | | | | [address] | | | | + + + + + -+ | % Basophils | 1.1Comment: Testing | % | EXTERNAL | | | | performed at [facility];888 | | LAB | | | | [address];[place] | | | | | | [address] | | | | + + + + + -+ | Absolute | 5.4Comment: Testing | 1.9 - 7.4 K/uL | EXTERNAL | | | Segmented | performed at [facility];888 | | LAB | | | Neutrophils | [address];[place] | | | | | | [address] | | | | + + + + + -+ | Absolute | 2.4Comment: Testing | 1.0 - 3.9 K/uL | EXTERNAL | | | Lymphocytes | performed at [facility];888 | | LAB | | | | [address];[place] | | | | | | [address] | | | | + + + + + -+ | Absolute | 0.8Comment: Testing | 0 - 0.8 K/uL | EXTERNAL | | | Monocytes | performed at [facility];888 | | LAB | | | | [address];[place] | | | | | | [address] | | | | + + + + + -+ | Absolute | 0.1Comment: Testing | 0 - 0.5 K/uL | EXTERNAL | | | Eosinophils | performed at [facility];888 | | LAB | | | | [address];[place] | | | | | | [address] | | | | + + + + + -+ | Absolute | 0.1Comment: Testing | 0 - 0.1 K/uL | EXTERNAL | | | Basophils | performed at [facility];888 | | LAB | | | | [address];[place] | | | | | | [address] | | | | + + + + + -+ | RBC | SLIDE SCANNED, AGREES | | EXTERNAL | | | Morphology | WITH AUTOMATED | | LAB | | | | RESULTS.Comment: Testing | | | | | | performed at [facility];[address] | | | | | | [address];[place] | | | | | | [address] | | | | + + + + + -+ | Na | 140Comment: Testing | 135 - 143 | EXTERNAL | | | | performed at [facility];888 | mmol/L | LAB | | | | [address];[place] | | | | | | [address] | | | | + + + + + -+ | K | 3.9Comment: Testing | 3.5 - 4.9 | EXTERNAL | | | | performed at [facility];888 | mmol/L | LAB | | | | [address];[place] | | | | | | [address] | | | | + + + + + -+ | Cl | 107Comment: Testing | 99 - 109 mmol/L | EXTERNAL | | | | performed at [facility];888 | | LAB | | | | [address];[place] | | | | | | [address] | | | | + + + + + -+ | CO2 | 28Comment: Testing | 23 - 32 mmol/L | EXTERNAL | | | | performed at [facility];888 | | LAB | | | | [address];[place] | | | | | | [address] | | | | + + + + + -+ | Anion Gap | 9Comment: Testing | 5 - 20 mmol/L | EXTERNAL | | | | performed at [facility];888 | | LAB | | | | [address];[place] | | | | | | [address] | | | | + + + + + -+ | Glucose, | 97Comment: Testing | 65 - 99 mg/dL | EXTERNAL | | | Fasting | performed at [facility];888 | | LAB | | | | [address];[place] | | | | | | [address] | | | | + + + + + -+ | BUN | 14Comment: Testing | 8 - 25 mg/dL | EXTERNAL | | | | performed at [facility];888 | | LAB | | | | [address];[place] | | | | | | [address] | | | | + + + + + -+ | Creatinine | 0.98Comment: Testing | 0.70 - 1.30 | EXTERNAL | | | | performed at [facility];888 | mg/dL | LAB | | | | [address];[place] | | | | | | [address] | | | | + + + + + -+ | BUN/Creatin | 14Comment: Testing | | EXTERNAL | | | ine Ratio | performed at [facility];888 | | LAB | | | | [address];[place] | | | | | | [address] | | | | + + + + + -+ | Calcium | 8.8Comment: Testing | 8.5 - 10.2 | EXTERNAL | | | | performed at [facility];888 | mg/dL | LAB | | | | [address];[place] | | | | | | [address] | | | | + + + + + -+ | Protein, | 6.9Comment: Testing | 6.3 - 8.2 g/dL | EXTERNAL | | | Total | performed at [facility];888 | | LAB | | | | [address];[place] | | | | | | [address] | | | | + + + + + -+ | Albumin | 3.7Comment: Testing | 3.6 - 5.0 g/dL | EXTERNAL | | | | performed at [facility];888 | | LAB | | | | [address];[place] | | | | | | [address] | | | | + + + + + -+ | Globulin | 3.2Comment: Testing | 1.3 - 4.9 g/dL | EXTERNAL | | | | performed at [facility];[address] | | LAB | | | | [address];[place] | | | | | | [address] | | | | + + + + + -+ | A/G Ratio | 1.2Comment: Testing | 1.0 - 2.4 | EXTERNAL | | | | performed at [facility];888 | | LAB | | | | [address];[place] | | | | | | [address] | | | | + + + + + -+ | Bilirubin | 0.9Comment: Testing | 0.1 - 1.5 mg/dL | EXTERNAL | | | Total | performed at [facility];888 | | LAB | | | | [address];[place] | | | | | | [address] | | | | + + + + + -+ | ALP, | 60Comment: Testing | 35 - 115 U/L | EXTERNAL | | | External | performed at [facility];[address] | | LAB | | | | [address];[place] | | | | | | [address] | | | | + + + + + -+ | AST | 22Comment: Testing | 10 - 45 U/L | EXTERNAL | | | | performed at [facility];888 | | LAB | | | | [address];[place] | | | | | | [address] | | | | + + + + + -+ | ALT | 37Comment: Testing | 10 - 65 U/L | EXTERNAL | | | | performed at [facility];888 | | LAB | | | | [address];[place] | | | | | | [address] | | | | + + + [...] | at [facility];[address] | | | | | [address];[place] [address] | | | | + + + + + -+ | CK, Total | 103Comment: Testing | 55 - 400 U/L | EXTERNAL | | | | performed at [facility];888 | | LAB | | | | [address];[place] | | | | | | [address] | | | | + + + [...] [place];[address] | | | | | | [address];[place] | | | | | | [address] | | | | + + + + + -+ | aPTT, | 26Comment: Testing | 23 - 32 seconds | EXTERNAL | | | Patient | performed at [facility];[address] | | LAB | | | | [address];[place] | | | | | | [address] | | | | + + + + + -+ | CK-MB | 2.9Comment: Testing | 0.5 - 3.6 ng/mL | EXTERNAL | | | | performed at [facility];[address] | | LAB | | | | [address];[place] | | | | | | [address] | | | | + + + [...] | LAB | | | | [address];[place], [place] | | | | | | [address] | | | | + + + [...] | LAB | | | | [address];[place], [place] | | | | | | [address] | | | | + + + [...] | performed at [facility] | | LAB | | | | [address];[place], [place] | | | | | | [address] | | | | + + + [...] | | | | | ONLY, -COMPUTER ([id number]), | | | | | | clinical editor Michelle Butcher | | | | | | (29) on 11/04/2014 | | | | | | 6:28:13 AM | | | | + + + + + + + + | Specimen | + + | | + + + + + | Narrative | Performed At | + + + | Historically converted procedure from [facility] Epic environment | EXTERNAL LAB | [...]
--- OUTSIDE RECORDS SUMMARY | ~2020-04-13 | XMS | Encounter Summary ---
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, | (Primary Dx); | | | | | [place] [address] | Pacemaker; | | | | | [phone] | Sinoatrial node | | | | | | dysfunction (HCC) | | | | | | with symptomatic | | | | | | bradycardia | +--------+ + + + + documented as of this encounter Visit Diagnoses Not on filedocumented in this encounter"
--- OUTSIDE RECORDS SUMMARY | ~2020-04-13 | XMS | Encounter Summary ---
Demographics + + + | Address | [address] | | | [place] [address] | + + + | Home Phone [...] Providers + +------+ + | Care Nut Steamer Name | Role | Phone | + +------+ + PCP | Unavailable | + +------+ + Encounter Details +--------+ + + + + | Date | Type | Department | Care Team | Description | +--------+ + + + + | 11/14/ | [facility] | [facility] | William Hirsch | | | 1999 | Encounter | MED CTR EMERGENCY | MD Cristobal [address] | | | | | CENTER [address] [place] | [address] | | | | | [place] | [place] [address] | | | | | [address] | [phone] | | | | | [phone] | | | +--------+ + + + [...] W | | | | | | [place], | | | | | | [place] [address] | | | | | | [phone] | | | | | | | | +--------+ + + + + | 05/01/ | Procedure | Cardiology | | | | 2019 | visit | | | | +--------+ + + + + | 05/01/ | Office | Cardiology | [place], | | | 2019 | Visit | | [address] | | | | | | [place], | | | | | | [place] [address] | | | | | | [phone] | | | | | | | | +--------+ + + + + | 05/21/ | Implant | Cardiology | Daljit Singletary, | Remote Device | | 2019 | Monitor | | MD [address] [place] | Interrogation | | | | | [place], | (Primary Dx); | | | | | [place] [address] | Pacemaker; | | | | | [phone] | Sinoatrial node | | | | | | dysfunction (HCC) | | | | | | with symptomatic | | | | | | bradycardia | +--------+ + + + + documented as of this encounter Visit Diagnoses Not on filedocumented in this encounter"
--- OUTSIDE RECORDS SUMMARY | ~2020-04-13 | XMS | Encounter Summary ---
Demographics + + + | Address | [address] | | | [place] [address] | + + + | Home Phone [...] Providers + +------+ + | Care Bridge Manager Name | Role | Phone | [...] + | 01/30/ | Telephone | [facility] | Daljit Singletary, | Other | | 2019 | | CARDIOLOGY [address] | MD [address] [place] | | | | | [place], | [place], | | | | | [place] [address] | [place] [address] | | | | | [phone] | [phone] | | | | | | | [...] | | | | | | [place] [address] | | | | | | [phone] | | | | | | | | +--------+ + + + + | 05/01/ | Procedure | Cardiology | | | | 2019 | visit | | | | +--------+ + + + + | 05/01/ | Office | Cardiology | [place], | | | 2019 | Visit | | [address] [address] | | | | | | [place], | | | | | | [place] [address] | | | | | | [phone] | | | | | | | | +--------+ + + + + | 05/21/ | Implant | Cardiology | Daljit Singletary, | Remote Device | 2019 | Monitor | | [address] [place] | Interrogation | | | | | 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
--- OUTSIDE RECORDS SUMMARY | ~2020-04-13 | XMS | Encounter Summary ---
Demographics + + + | Address | [address] | | | [place] [address] | + + + | Home Phone [...] Providers + +------+ + | Care Engineering Programmer Name | Role | Phone | + +------+ + PCP | Unavailable | + +------+ + Encounter Details +--------+ + + + + | Date | Type | Department | Care Team | Description | +--------+ + + + + | 06/25/ | [facility] | [facility] | Daljit Singletary, | | | 2008 | Encounter | MED CTR XRAY [address] | [address] | | | | | [place] | [place], | | | | | [place] [address] | [place] [address] | | | | | [phone] | [phone] | | | | | | | [...] | | | | | | [place] [address] | | | | | | [phone] | | | | | | | [...] | | | | | | [place] [address] | | | | | | [phone] | | | | | | | | +--------+ + + + + | 05/21/ | Implant | Cardiology | Daljit Singletary, | Remote Device | 2019 | Monitor | | [address] | Interrogation | | | | | [place], | (Primary Dx); | | | | | [place] [address] | Pacemaker; | | | | | [phone] | Sinoatrial node | | | | | | dysfunction (HCC) | | | | | | with symptomatic | | | | | | bradycardia | +--------+ + + + + documented as of this encounter Visit Diagnoses Not on filedocumented in this encounter"
--- OUTSIDE RECORDS SUMMARY | ~2020-04-13 | XMS | Encounter Summary ---
Demographics + + + | Address | [address] | | | [place] [address] | + + + | Home Phone [...] | Palpitations | [address] [place] | | | | | Procedures | [place] [address] | [address] [place] | | | | | ECHO | [place], | [place], [place] | | | | | Complete | [place] [address] | [address] | | | | | | Phone: | Phone: | | | | | | [phone] | [phone] | | | | | | Fax: | Fax: | | | | | | [phone] | [phone] | +--------+--------+ + + + + Encounter Details +--------+ + + + + | Date | Type | Department | Care Team | Description | +--------+ + + + + | 12/30/ | Hospital | [facility] | TimmyshaistateshaShaistatimmy, | Palpitations | | 2012 - | Encounter | MED CTR XRAY [address] | MD [address] [place] | | | | | [place] | [place], | | | 01/01/ | | [place] [address] | [place] [address] | | | 2012 | | [phone] | [phone] | | | | | | | [...] + + + +---------+ + + | [place]-3 Fatty | CAPS, one capsule by | [...] W | | | | | | [place], | | | | | | [place] [address] | | | | | | [phone] | | | | | | | | +--------+ + + + + | 05/01/ | Procedure | Cardiology | | | | 2019 | visit | | | | +--------+ + + + + | 05/01/ | Office | Cardiology | [place] | | | 2019 | Visit | | [address] | | | | | | [place], | | | | | | [place] [address] | | | | | | [phone] | | | | | | | | +--------+ + + + + | 05/21/ | Implant | Cardiology | Daljit Singletary, | Remote Device | 2019 | Monitor | | MD [address] [place] | Interrogation | | | | | [place], | (Primary Dx); | | | | | [place] [address] | Pacemaker; | | | | | [phone] | Sinoatrial node | | | | [...] + + | [facility] | ILION | | Department [address] [facility] | [facility] | | [ rep [address]] [ rep [facility] | | st zip] Signed | - IMAGING | | | | | Patient Name: MOE GAY | | | Physician: MIGUELINA : 1960 Age: 52 Sex: M Unit | | | #: [id number] Exam Date: 12/30/12 Location: | | | [facility] Report #: [id number] Page: | | | %(RAD)RES..mtdd.print.filter("pg") of %(RAD) | | | RES..mtdd.print.filter("tpg") | | | | | | Accession Number: [id number] | | | E C H O C A R D I O G R A P H Y R E P O R T | | | HEIGHT: 76" WEIGHT: 270# | | | DOWEL MAKER: JAMEEL REFERRING DR: TIMMY DRAKE DR: | [...] | | | Transcribed Date/Time: 12/30/2012 16:34 Rides Supervisor: | | | <<Signature on File>> | | | Daljit | | | MD [facility] FASE01/02/13 0955 <Electronically signed by | | | Daljit Singletary MD, FAC, FACP, FASNanette, FASRAUL> Daljit | | | MD [facility] ADELINE 12/30/12 1608 Rides Supervisor: Jessica | | | Xbwfqvxrjnjwa06/08/13 1634 Daljit Singletary MD [facility] | | | FASNanette | | + + + + + + + + | Performing | Address | City/State/Zipcode | Phone Number | | Organization | | | | + + + + + | [facility] | [address] | [place] | [phone] | | [facility] | | [address] | | | - IMAGING | | | | + + + + + documented in this encounter Visit Diagnoses + + | Diagnosis | + + | Palpitations | + + documented in this encounter
--- OUTSIDE RECORDS SUMMARY | ~2020-04-13 | XMS | Encounter Summary ---
Demographics + + + | Address | [address] | | | [place] [address] | + + + | Home Phone [...] Providers + +------+ + | Care Satellite Dish Installer Name | Role | Phone | + +------+ + PCP | Unavailable | + +------+ + Encounter Details +--------+ + + + + | Date | Type | Department | Care Team | Description | +--------+ + + + + | 10/29/ | Hospital | [facility] | Pia Akhtar | | | 2003 | Encounter | CONVERSION DEP [address] | MD [address] | | | | | [address] | [address] | | | | | [place] | [place] [address] | | | | | [address] | [phone] | | | | | [phone] | | | +--------+ + + + [...] | | | | | | [place] [address] | | | | | | [phone] | | | | | | | [...] | | | | | | [place] [address] | | | | | | [phone] | | | | | | | | +--------+ + + + + | 05/21/ | Implant | Cardiology | Daljit Singletary, | Remote Device | 2019 | Monitor | | MD [address] [place] | Interrogation | | | | | [place], | (Primary Dx); | | | | | [place] [address] | Pacemaker; | | | | | [phone] | Sinoatrial node | | | | | | dysfunction (HCC) | | | | | | with symptomatic | | | | | | bradycardia | +--------+ + + + + documented as of this encounter Visit Diagnoses Not on filedocumented in this encounter"
--- OUTSIDE RECORDS SUMMARY | ~2020-04-13 | XMS | Encounter Summary ---
Demographics + + + | Address | [address] | | | [place] [address] | + + + | Home Phone [...] Providers + +------+ + | Care Dance Artist Name | Role | Phone | [...] | [place] | [place] | | | | | [address] | [address] | | | | | [phone] | | | +--------+ + + + [...] | | | | | | [place] [address] | | | | | | [phone] | | | | | | | [...] | | | | | | [place] [address] | | | | | | [phone] | | | | | | | | +--------+ + + + + | 05/21/ | Implant | Cardiology | Daljit Singletary, | Remote Device | | 2019 | Monitor | | [address] [facility] | Interrogation | | | | | [place], | (Primary Dx); | | | | | [place] [address] | Pacemaker; | | | | | [phone] | Sinoatrial node | | | | | | dysfunction (HCC) | | | | | | with symptomatic | | | | | | bradycardia | +--------+ + + + + documented as of this encounter Visit Diagnoses Not on filedocumented in this encounter"
--- OUTSIDE RECORDS SUMMARY | ~2020-04-13 | XMS | Encounter Summary ---
Demographics + + + | Address | [address] | | | [place] [address] | + + + | Home Phone [...] Providers + +------+ + | Care Residential Program Worker Name | Role | Phone | + +------+ + | Michael Amanda DO | PCP | | + +------+ + Encounter Details +--------+ + + + + | Date | Type | Department | Care Team | Description | +--------+ + + + + | 07/25/ | Abstract | [facility] | Michael Amanda, | | | 2013 | | [facility] | DO [address] | | | | | [address] | [place] | | | | | [place] | [address] | | | | | [address] | | | | | | [phone] | | | +--------+ + + + [...] | | | | | | [place] [address] | | | | | | [phone] | | | | | | | | +--------+ + + + + | 05/01/ | Procedure | Cardiology | | | | 2019 | visit | | | | +--------+ + + + + | 05/01/ | Office | Cardiology | [place], | | | 2019 | Visit | | PARISA [place] [address] | | | | | | [place], | | | | | | [place] [address] | | | | | | [phone] | | | | | | | | +--------+ + + + + | 05/21/ | Implant | Cardiology | Daljit Singletary, | Remote Device | | 2019 | Monitor | | [address] [place] | Interrogation | | | | | [place], | (Primary Dx); | | | | | [place] [address] | Pacemaker; | | | | | [phone] | Sinoatrial node | | | | | | dysfunction (HCC) | | | | | | with symptomatic | | | | | | bradycardia | +--------+ + + + + documented as of this encounter Visit Diagnoses Not on filedocumented in this encounter"
--- OUTSIDE RECORDS SUMMARY | ~2020-04-13 | XMS | Encounter Summary ---
Demographics + + + | Address | [address] | | | [place] [address] | + + + | Home Phone [...] Providers + +------+ + | Care Pattern Puncher Name | Role | Phone | [...] W | hypertension | | | | [place], | [place], | (Primary Dx); | | | | [place] [address] | [place] [address] | Coronary artery | | | | [phone] | [phone] | disease involving | | | | | | ho-chunk [...] room at [facility] on 08/23/20 15 and the ER physician reviewed his chart saying that there were 2 ultrasounds from [facility] both of them are clear of DVT but reveal some venous insufficiency. Today, arian ent tells me that he started having swelling in both his feet within a week when he got to [facility]. He had extensive traveling. He [...] Preventative health care Coronary artery disease involving ho-chunk coronary artery without angina pectoris Cannabis abuse, [...] by mouth every evening. 90 tablet 3 [facility] Natural Products (OSTEO [...] 3rd dose, call 911 100 tablet 3 [place]-3 Fatty Acids (SALMON OIL-1000 PO) CAPS, [...] Daily. to reduce urinary frequenc y Lot #[id number], exp 07/2016 (Patient taking differently: Take 8 mg by mouth Daily. PATIENT STA YOSELIN NO LONGER TAKING THIS MEDICATION. STATED ON 08/29/2015. to reduce urinary frequency Lot #[id number], exp 07/2016) 21 capsule 0 Specialty Vitamins [...] room at [facility] and according to the not es they [...] to go back in 3 days to [place] for an attempt of ablation under general [...] dizziness. He is in class I-II of [place] [employer] functional class. T here are [...] this chart may have been created with [employer] voice recognition software. Occasi onal wrong-word or [...] | | | | | | [place] [address] | | | | | | [phone] | | | | | | | [...] | | | | | | [place] [address] | | | | | | [phone] | | | | | | | | +--------+ + + + + | 05/21/ | Implant | Cardiology | Sydni Singletary, | Remote Device | 2019 | Monitor | | MD [place] | Interrogation | | | | | [place], | (Primary Dx); | | | | | [place] [address] | Pacemaker; | | | | | [phone] | Sinoatrial node | | | | [...] the | | | | PDT | ho-chunk coronary | results section. | | | [...] DVT. COMPARISON: None. TECHNIQUE: Compression | [facility] | | sonography was performed from the groin through the popliteal fossa | [facility] | | in both lower extremities.. [...] the ordering provider, by the workers compensation analyst, | | | immediately following the exam. [...] ordering provider, by the | |workers compensation analyst, immediately following the exam. | | | | | |Dictated and Signed by: Emmanuel Gibbons MD | | Electronically signed: 08/29/2015 3:25 PM | + + + + + + + | Performing | Address | City/State/Zipcode | Phone Number | | Organization | | | | + + + + + | [facility] | [address] | [place] | [phone] | | [facility] | | [address] | | | - IMAGING | | [...] MD | | | | | | ([id number]) on 08/29/2015 | | | | | [...] + + | Coronary artery disease involving ho-chunk coronary artery without angina pectoris | + + | DVT (deep venous thrombosis), bilateral | + + documented in this encounter
--- OUTSIDE RECORDS SUMMARY | ~2020-04-13 | XMS | Encounter Summary ---
Demographics + + + | Address | [address] | | | [place] [address] | + + + | Home Phone [...] Providers + +------+ + | Care Animal Humane Agent Supervisor Name | Role | Phone | [...] (Primary | | 2018 | Visit | [facility] | MD Bre[address] | Dx); Bipolar | | | | [facility] [address] | affective disorder, | | | | [address] | [place] [address] | remission status | | | | [place], [place] | [phone] | unspecified (HCC); | | | | [address] | | Mixed anxiety | | | | [phone] | | depressive disorder; | | | [...] CV LHC; Surgeon: Daljit Singletary MD; Location: [facility] CV LAB CARDIAC CATHERIZATION N/A 01/25/2019 Procedure: CV Cor Angio; Surgeon: Daljti Singletary MD; Location: [facility] CV LAB COLONOSCOPY N/A 12/24/2017 Procedure: COLONOSCOPY; Surgeon: Emmanuel Daniel MD; Location: [facility] MEDICAL PROCEDURE UNIT COLONOSCOPY N/A 01/05/2019 Procedure: COLONOSCOPY; Surgeon: Emmanuel Daniel MD; Location: [facility] MEDICAL PROCEDURE UNIT EGD 12/24/2017 HARDWARE [...] Procedure: EGD; Surgeon: Emmanuel Daniel MD; Location: [facility] MEDICAL PROCEDURE UNIT UPPER GASTROINTESTINAL ENDOSCOPY N/A 01/05/2019 Procedure: EGD; Surgeon: Emmanuel Daniel MD; Location: [facility] MEDICAL PROCEDURE UNIT URETEROSCOPY Left 04/13/2019 Procedure: Cystoscopy, Left ureteroscopy with laser lithotripsy, Left ureteral stent place ment; Surgeon: Matthew Uriarte MD; Location: [facility] MAIN OR VASECTOMY Social History Socioeconomic [...] NEEDED FOR CHEST PAIN 250 tablet 0 [place]-3 Fatty Acids (SALMON OIL-1000 PO) CAPS, one [...] PLT 169 06/02/2019 No results found for: [id number] No results found for: FOLATE No results [...] Co multiple ER visits Going again to [facility] tomorrow Already followed by GI [...] dollars a month. We will defer to [facility], perhaps to have some sort [...] | | | | | | [place] [address] | | | | | | [phone] | | | | | | | | +--------+ + + + + | 05/01/ | Procedure | Cardiology | | | 2019 | visit | | | | +--------+ + + + + | 05/01/ | Office | Cardiology | Silvia, | | | 2019 | Visit | | [address] | | | | | | [place], | | | | | | [place] [address] | | | | | | [phone] | | | | | | | | +--------+ + + + + | 05/21/ | Implant | Cardiology | Daljit Singletary, | Remote Device | | 2019 | Monitor | | [address] | Interrogation | | | | | [place], | (Primary Dx); | | | | | [place] [address] | Pacemaker; | | | | | [phone] | Sinoatrial node | | | | [...]
--- OUTSIDE RECORDS SUMMARY | ~2020-04-13 | XMS | Encounter Summary ---
Demographics + + + | Address | [address] | | | [place] [address] | + + + | Home Phone [...] Team Providers + +------+ + | Care Abalone Processor Name | Role | Phone | + +------+ + | Michael Amanda DO | PCP | | + +------+ + Encounter Details +--------+ + + + + | Date | Type | Department | Care Team | Description | +--------+ + + + + | 05/11/ | Hospital | [facility] | Conversion | Lumbago; | | 2013 | Encounter | [facility]ICAL CENTER | Transaction, | Postlaminectomy | | | | CLINICAL DECISION | Provider Unknown | syndrome, cervical | | | | [address] | | region; Cervicalgia | | | | [place], [place] | (Fax) | | | | | [address] | Cesar, | | | | | [phone] | MD Gamaliel | | +--------+ + [...] + + + +---------+ + + | [place]-3 Fatty | CAPS, one capsule by | [...] Date of Service: 05/11/14 150 Status: Signed Mechanical Integrity Engineer: Meliza Macario RN (Registered Nurse) Pt discharged [...] Date of Service: 05/11/14 142 Status: Signed Mechanical Integrity Engineer: Heike Mckeon RN (Registered Nurse) Called doctor [...] | | | | | | [place] [address] | | | | | | [phone] | | | | | | | [...] | | | | | | [place] [address] | | | | | | [phone] | | | | | | | | +--------+ + + + + | 05/21/ | Implant | Cardiology | Daljit Singletary, | Remote Device | | 2019 | Monitor | | [address] [facility] | Interrogation | | | | | [place], | (Primary Dx); | | | | | [place] [address] | Pacemaker; | | | | | [phone] | Sinoatrial node | | | | [...] | | | intrathecal use. See the nuclear medicine technologist examination for details of the | | | injection. Bone algorithm noncontrast technique with reformatted | | | sagittal and coronal images. Prior study for review : CT discogram | | | from 2004 was used to orient this examination given the transitional | | | anatomy of the lumbosacral junction FINDINGS: Inoculator is notable | | | for a [...] for intrathecal use. See | | the nuclear medicine technologist examination for details of the injection. Bone algorithm noncontrast | | technique with reformatted sagittal and coronal images. Prior study for review : CT | | discogram from 2004 was used to orient this examination given the transitional anatomy | | of the lumbosacral junction FINDINGS: Inoculator is notable for a pacing system. Anterior [...]
--- OUTSIDE RECORDS SUMMARY | ~2020-04-13 | XMS | Encounter Summary ---
Demographics + + + | Address | [address] | | | [place] [address] | + + + | Home Phone [...] Providers + +------+ + | Care Technical Assoc Name | Role | Phone | [...] W | Dx) | | | | [place] [address] | [address] [place] | | | | | [place], [place] | [place] [address] | | | | | [address] | [phone] | | | | | [phone] | | | +--------+ + + + [...] W | | | | | | [place], | | | | | | [place] [address] | | | | | | [phone] | | | | | | | | +--------+ + + + + | 05/01/ | Procedure | Cardiology | | | | 2019 | visit | | | | +--------+ + + + + | 05/01/ | Office | Cardiology | Silvia, | | | 2019 | Visit | | [place] [address] | | | | | | [place], | | | | | | [place] [address] | | | | | | [phone] | | | | | | | | +--------+ + + + + | 05/21/ | Implant | Cardiology | Daljit Singletary, | Remote Device | | 2019 | Monitor | | [address] | Interrogation | | | | | [place], | (Primary Dx); | | | | | [place] [address] | Pacemaker; | | | | | [phone] | Sinoatrial node | | | | [...] W?MRN: | | | | | | [id number] | | | [id number] | | | his | | | [...] | | | ent/60 | | | [id number] | | | -5586- | | | [...] | | | St. | | | [place] | | | y H. | | [...] | | | St. | | | [place] | | | y H. | | [...] | | | St. | | | [place] | | | y H. | | [...] | | | St. | | | [place] | | | y H. | | [...] | | | St. | | | [place] | | | y | | | [...] | | | ext. | | | [address] | | | or go | | [...] [address] | [place] | [phone] | | [facility] | | [address] | | | - LABORATORY | | [...] ST. | [address] | [place], [place] | [phone] | | [facility] | | [address] | | | - LABORATORY | | [...] | | | FILTRATION | mL/min/1.73m2 | [facility] | | | PERUVIAN | RATE,ESTIMATED | | MEDICAL | | | | mL/min/1.02x9Wzso than | | CENTER - | | [...] + | [facility] | [address] | [place] | [phone] | | [facility] | | [address] | | | - LABORATORY | | [...] [address] | [place] | [phone] | | [facility] | | [address] | | | - LABORATORY | | | | + + + + + documented in this encounter Visit Diagnoses + + | Diagnosis | + + | Bronchitis - Primary Bronchitis, not specified as acute or chronic | + + documented in this encounter"
--- OUTSIDE RECORDS SUMMARY | ~2020-04-13 | XMS | Encounter Summary ---
Demographics + + + | Address | [address] | | | [place] [address] | + + + | Home Phone [...] Team Providers + +------+ + | Care Recycler Forklift Driver Truck Driver Name | Role | Phone | + +------+ + PCP | Unavailable | + +------+ + Encounter Details +--------+ + + + + | Date | Type | Department | Care Team | Description | +--------+ + + + + | 05/24/ | Hospital | [facility] | Chi Fang | Unspecified Chest | | 2008 - | Encounter | MEDICAL CENTER | MD Kelsey [address] | Pain | | | | CLINICAL DECISION | [place] HERNANDEZ | | | 05/25/ | | [address] | [address] | | | 2008 | | [place], [place] | [phone] | | | | | [address] | | | | | | [phone] | | | +--------+ + + + [...] | | | | | | [place], | | | | | | [place] [address] | | | | | | [phone] | | | | | | | | +--------+ + + + + | 05/01/ | Procedure | Cardiology | | | | 2019 | visit | | | | +--------+ + + + + | 05/01/ | Office | Cardiology | Silvia, | | | 2019 | Visit | | [address] | | | | | | [place], | | | | | | [place] [address] | | | | | | [phone] | | | | | | | | +--------+ + + + + | 05/21/ | Implant | Cardiology | Daljit Singletary, | Remote Device | 2019 | Monitor | | [place] | Interrogation | | | | | [place], | (Primary Dx); | | | | | [place] [address] | Pacemaker; | | | | | [phone] | Sinoatrial node | | | | [...] Performed At | + + + | [id number] | | | Page 1 RADIOLOGY | | | [facility] [address]/ | | | OPO [facility] | | | CENTER NAME: [place] [address] | | | | | | | | | DATE OF : 1960 ORDER NUMBER: | | | [id number] EXAM DATE/TIME: 05/25/2009 08:00 A ORDERING PHYSICIAN: [...] | | administration of 14.9 mCi of uihgktiazw-09n-dqoikhj Myoview. Stress | | | images postinjection [...] | | | images. Prone images demonstrate religious of the inferior wall | | | [...] | | A P | | | TSG/earlene/[id number]/ cc: MD FEMI FOSS, | | | MD AMY SULLIVAN, DO | | + + + + + | Procedure Note | + + | Kalpesh Brown - 07/17/2019 2:13 AM PDT | | [id number] Page 1 | | RADIOLOGY CDU 67385/ | | OPO | | [facility] NAME: [address] | | [place] [address] | | | | DATE OF : 1960 | | | | ORDER NUMBER: [id number] | | EXAM DATE/TIME: 05/25/2009 08:00 A [...] administration of 14.9 mCi | | of wwxaeudrmo-07f-rppoiwt Myoview. Stress images postinjection of 47.7 | [...] | | | | Prone images demonstrate religious of the inferior wall nicely. | | [...] | Electronically Signed by | | FEMI MAREI MD 05/25/2009 03:33 P | | | | A | | P | | [id number]/[id number]/ | | cc: ANGELA MARADIAGA MD | | FEMI MARIE MD | | CHI FANG MD | | AMY BANEGAS DO | + + ECHO Complete (05/25/2009 7:50 AM PDT) + + | Specimen | + + | | + + + + + | Narrative | Performed At | + + + | [id number] | | | Page 1 ECHO [facility] NAME: | | | [place] [address] MEDICAL RECORD #: | | | [id number] | | | DATE OF : 1960 ORDER | | | NUMBER: [id number] EXAM DATE/TIME: 05/25/2009 07:34 PERFORMING | | [...] Excursion: | | | 1.89 cm E-F Garvin: 0.08 m/s HR: 43.51 BPM AV maxP.11 [...] | | | 0.33 m/s TV Dec Garvin: 1.73 m/s2 TV Dec Time: 344.24 ms TV | | | E Bravo: 0.59 m/s TV E/A Ratio: 1.80 TV maxP.40 mmHg TV | | | meanP.44 mmHg TV Vmax: 0.59 m/s TV Vmean: 0.30 m/s TV | | | VTI: 22.88 cm Dobby Loom Weaver: ANTHONY Authenticated by: Edwardo Tee | | | Carlos WINKLER Report Date/Time: 05-25-2009 10:19:52 | | + + + + + | Procedure Note | + + | Kalpesh Brown - 07/17/2019 2:13 AM PDT [id number] | | Page [address] [place] [address] NAME: [place], [place] | | [address] : ACCOUNT #: | | [id number]: DATE OF : 1960ORDER NUMBER: | | [id number] DATE/TIME: 05/25/2009 07:34PERFORMING PHYSICIAN: Edwardo Gonzalez | [...] mlLAESV Index (A-L): 26.03 ml/m2LAAs A2C: 14.93 [id number] A-L | | A2C: 44.50 mlLALs A2C: 4.25 cmLAAs A4C: 18.42 [id number] A-L A4C: 55.79 mlLALs | | A4C: 5.16 cmAo Diam: 3.91 cmAV Cusp: 2.23 cmLA Diam: 3.79 cmLA/Ao: 0.96%FS: | | 43.37 %EDV(Teich): 146.19 mlEF(Teich): 73.99 %ESV(Teich): 38.01 mlIVSd: 1.57 | | cmIVSs: 1.79 cmLVIDd: 5.48 cmLVIDs: 3.10 cmLVPWd: 1.32 cmLVPWs: 1.79 | | cmSV(Teich): 108.18 mlD-E Excursion: 1.89 cmE-F Garvin: 0.08 m/sHR: 43.51 BPMAV | | maxP.11 mmHgAV meanP.33 mmHgAV Vmax: 1.74 m/Zabrina Vmean: 1.06 m/Zabrina VTI: | | 35.51 cmAVA Vmax: 2.77 cm2AVA (VTI): 2.54 cp9CANN Dopp: 3.00 l/ggac4VCBN Dopp: | | 6.33 l/minHR: 70.25 BPMLVOT maxP.78 mmHgLVOT meanP.02 mmHgLVSI Dopp: | | 42.76 ml/m2LVSV Dopp: 90.23 mlLVOT Vmax: 1.30 m/sLVOT Vmean: 0.80 m/sLVOT VTI: | | 24.35 cmMV A Bravo: 0.70 m/sMV DecT: 242.46 msMV E Bravo: 0.91 m/sMV E/A Ratio: | | 1.31MV maxP.40 mmHgMV meanP.82 mmHgMV Vmax: 0.92 m/sMV Vmean: 0.37 m/sMV | | VTI: 26.47 cmMVA (VTI): 3.40 is2Jznxbw e': 0.08 m/sSeptal E/e': 11.24HR: | | 60.55 BPMPV maxP.04 mmHgPV meanP.39 mmHgPV Vmax: 0.87 m/sPV Vmean: 0.55 | | m/sPV VTI: 19.09 cmRAP: 5 mmHgRVSP: 21.72 mmHgTR maxP.72 mmHgTR Vmax: | | 2.04 m/sTV A Bravo: 0.33 m/sTV Dec Garvin: 1.73 m/s2TV Dec Time: 344.24 msTV E Bravo: | | 0.59 m/sTV E/A Ratio: 1.80TV maxP.40 mmHgTV meanP.44 mmHgTV Vmax: 0.59 | | m/sTV Vmean: 0.30 m/sTV VTI: 22.88 cm Dobby Loom Weaver: EMERYuthenticated by: Edwardo Tee | | Carlos [...] | |D-E Excursion: 1.89 cm | |E-F Garvin: 0.08 m/s | |HR: 43.51 BPM | [...] A Bravo: 0.33 m/s | |TV Dec Garvin: 1.73 m/s2 | |TV Dec Time: 344.24 ms | |TV E Bravo: 0.59 m/s | |TV E/A Ratio: 1.80 | |TV maxP.40 mmHg | |TV meanP.44 mmHg | |TV Vmax: 0.59 m/s | |TV Vmean: 0.30 m/s | |TV VTI: 22.88 cm | | | |Dobby Loom Weaver: KVW | |Authenticated by: Edwardo Gonzalez MD | |Report Date/Time: 05-25-2009 10:19:52 | + + CT Head wo Contrast (05/24/2009 12:58 PM PDT) + + | Specimen | + + | | + + + + + | Narrative | Performed At | + + + | [id number] | | | Page 1 RADIOLOGY | | | [facility] [address]/ | | | OPO [facility] | | | CENTER NAME: [place] [address] | | | | | | | | | DATE OF : 1960 ORDER NUMBER: | | | [id number] EXAM DATE/TIME: 05/24/2009 12:47 P ORDERING PHYSICIAN: [...] | | asymmetrically dense vessel about the quinault of Pearson. No | | | hydrocephalus. [...] 08:45 P P P | | | TSG/tp/[id number]/ cc: MD ANGELA AVENDAÑO MD | | | MD AMY HAM DO | | + + + + + | Procedure Note | + + | Kalpesh Brown Conversion - 07/17/2019 2:13 AM PDT | | [id number] Page 1 | | RADIOLOGY CDU 30432/ | | OPO | | [facility] NAME: [address] | | [place] [address] | | | | DATE OF : 1960 | | | | ORDER NUMBER: [id number] | | EXAM DATE/TIME: 05/24/2009 12:47 P [...] is no asymmetrically dense vessel about the quinault of Pearson. No | | hydrocephalus. Some [...] | P | | P | | [facility]/tp/[id number]/ | | cc: VINAY HILL MD | | ANGELA MARADIAGA MD | | FEMI MARIE MD | | AMY BANEGAS DO | + + XR Chest 2 Vws (05/24/2009 11:31 AM PDT) + + | Specimen | + + | | + + + + + | Narrative | Performed At | + + + | [id number] | | | Page 1 RADIOLOGY | | | CDU 21811/ | | | [facility] | | | CENTER NAME: [place] [address] | | | | | | | | | DATE OF : 1960 ORDER NUMBER: | | | [id number] EXAM DATE/TIME: 05/24/2009 11:19 A ORDERING PHYSICIAN: [...] DT: | | | 05/24/2009 05:38 P [facility]//[id number]/ cc: VINAY HILL MD | | | MD FEMI FOSS MD AMY | | | P BASSAM, DO | | + + + + + | Procedure Note | + + | Kalpesh Brown - 07/17/2019 2:13 AM PDT | | [id number] Page 1 | | RADIOLOGY CDU 03791/ | | OPO | | [facility] NAME: [address] | | [place] [address] | | | | DATE OF : 1960 | | | | ORDER NUMBER: [id number] | | EXAM DATE/TIME: 05/24/2009 11:19 A [...] | P | | P | | [facility]//[id number]/ | | cc: VINAY HILL MD | | ANGELA MARADIAGA MD | | FEMI MARIE MD | | AMY BANEGAS DO | + + documented in this encounter Visit Diagnoses + + | Diagnosis | + + | Chest pain, unspecified | + + documented in this encounter"
--- OUTSIDE RECORDS SUMMARY | ~2020-04-13 | XMS | Encounter Summary ---
Demographics + + + | Address | [address] | | | [place] [address] | + + + | Home Phone [...] Providers + +------+ + | Care Tool Machine Set Up Operator Name | Role [...] CARDIOLOGY [address] | MD [place] | reprogramming/check | | | | [place], | [place], | DO NOT DELETE | | | | [place] [address] | [place] [address] | (Primary Dx); | | | | [phone] | [phone] | Pacemaker - | | | | [...] | | | | | | [place] [address] | | | | | | [phone] | | | | | | | | +--------+ + + + + | 05/01/ | Procedure | Cardiology | | | | 2019 | visit | | | | +--------+ + + + + | 05/01/ | Office | Cardiology | Silvia, | | | 2019 | Visit | | [place] [address] | | | | | | [place], | | | | | | [place] [address] | | | | | | [phone] | | | | | | | | +--------+ + + + + | 05/21/ | Implant | Cardiology | Daljit Singletary, | Remote Device | | 2019 | Monitor | | [address] [place] | Interrogation | | | | | [place], | (Primary Dx); | | | | | [place] [address] | Pacemaker; | | | | | [phone] | Sinoatrial node | | | | [...]
--- OUTSIDE RECORDS SUMMARY | ~2020-04-13 | XMS | Clinical Summary ---
Demographics + + + | Address | [address] | | | [place] [address] | + + + | Home Phone [...] Providers + +------+ + | Care Mill Recorder Name | Role | Phone | + [...] | | | + + +--------+---+------+------+-------+ | [place]-3 Fatty | CAPS, one capsule by | [...] automatically from request for surgery | | [id number] | + + + + + | Diarrhea, unspecified type | 01/15/2020 | + + + + + | Overview: Added automatically from request for surgery | | [id number] | + + + + + | Unintentional weight loss | 01/15/2020 | + + + + + | Overview: Added automatically from request for surgery | | [id number] | + + + + + | Opioid type dependence, continuous | 01/15/2020 | + + + + + | Overview: Added automatically from request for surgery | | [id number] | + + + + + | Allergy to opioid analgesic | 01/15/2020 | + + + + + | Overview: Added automatically from request for surgery | | [id number] | + + + + + | [...] + | Overview: Lower back injury (From [facility]) 1980 1984 | + + [...] + + | Coronary artery disease involving comanche coronary artery of | 12/21/2013 | | comanche heart without angina pectoris | | + [...] attenuation cannot | | completely be ruled out.[facility] 12/25/13, shows non critical [...] back in 3 days to | | [place] for an attempt of ablation under general [...] IMPLANTED GENERATOR | | Medtronic DDD ADDR01 [id number] 06/14/09 RV LEAD Medtronic Active | | Bipolar CapSureFix 4076 [id number] 06/14/09 A LEAD Medtronic | | Active Bipolar CapSurFix 4076 [id number] 06/14/09 | + + + +---+ | [...] Cath, 02/29/2012, LVEF is 65%, [facility], Daljit Gemini, | | [facility] Myocardial Gated Stress Test, 05/25/2009, EF 53 | | % during rest and 52% during stress. [facility], | | [place], [place].Persantine Sestamibi Stress Test, 06/14/2008, LVEF is | | 60%, [facility], Daljit MorenowanL 12/25/13, shows noncritical | [...] Plan: Nonobstructive CAD noted | | on [facility] from 2013, no EKG [...] + + | Mother | | | [place] | | | | (Age | | [...] | | | | | | [place], | | | | | | [place] [address] | | | | | | [phone] | | | | | | | | +--------+ + + + + | 05/01/ | Procedure | Cardiology | | | | 2019 | visit | | | | +--------+ + + + + | 05/01/ | Office | Cardiology | Silvia, | | | 2019 | Visit | | [address] | | | | | | [place], | | | | | | [place] [address] | | | | | | [phone] | | | | | | | | +--------+ + + + + | 05/21/ | Implant | Cardiology | Daljit Singletary, | Remote Device | 2019 | Monitor | | MD [place] | Interrogation | | | | | [place], | (Primary Dx); | | | | | [place] [address] | Pacemaker; | | | | | [phone] | Sinoatrial node | | | | [...] Left: | COOK | | 09/27/ | [id number] | | 32 - [id number]: | | Ureter | [employer] | | 2020 | / | | Qty: 1 on 04/13/2019 by | | | - [place] | | | /[id number] | | Matthew Uriarte MD at | | | | | | 57 | | [facility] | | | | | | | [facility] | | | | | [...] +--------+ +---------+--------+ | MEDICARE | MEDICA | [id number] | 01/21/20 | [phone] | | Medica | | | RE | | 01-Pre | 5 | | re | | | PART A | | sent | | | | | | AND B | | | | | | + +--------+ +--------+ +---------+--------+ | MEDICARE | MEDICA | [id number] | 01/21/20 | [phone] | | Medica | | | RE | | 01-Pre | 5 | | re | | | PART A | | sent | | | | | | AND B | | | | | | + +--------+ +--------+ +---------+--------+ | AARP | AARP | [id number] | | [phone] | | Indemn | | | MDCR | | 016-Pr | 0 | | ity | | | SUPPL | | esent | | | | + +--------+ +--------+ +---------+--------+ | AARP | AARP | [id number] | 11/22/19 | [phone] | | Indemn [...] Person | Self | [birth year] | [address] | | Kirk | cristo/Per | | 1959 | [phone] | Dr [place] | | | roxanne | | | 8 (Home) | [address] | + +--------+ +--------+ + + | Moe Sanchez | Person | Self | [birth year] | | [address] | | Kirk | al/Fam | | 1959 | [phone] | Dr [place] | | | roxanne | | | 8 (Home) | [address] | + +--------+ +--------+ + + | Moe Sanchez | Third | Self | [birth year] | | [address] | | Kirk | Constitution Party | | 1960 | [phone] | [address] [place] | | | [place] | | | 3 ([place]) | [address] | | | ity | | | | | + +--------+ +--------+ + + Advance Directives + + + + + | Type | Date Recorded | Patient | Explanation | | | | Automobile Locator | | + + + + + | Power of | | | | | Camera Repair Technician | | | | + + + [...]
--- OUTSIDE RECORDS SUMMARY | ~2020-04-13 | XMS | Encounter Summary ---
Demographics + + + | Address | [address] | | | [place] [address] | + + + | Home Phone [...] Providers + +------+ + | Care Agricultural Adviser Name | Role | Phone | [...] [address] | | | | | [place], | [place], | | | | | [place] [address] | [place] [address] | | | | | [phone] | [phone] | | | | | | | [...] W | | | | | | [place], | | | | | | [place] [address] | | | | | | [phone] | | | | | | | | +--------+ + + + + | 05/01/ | Procedure | Cardiology | | | | 2019 | visit | | | | +--------+ + + + + | 05/01/ | Office | Cardiology | Silvia, | | | 2019 | Visit | | [address] | | | | | | [place], | | | | | | [place] [address] | | | | | | [phone] | | | | | | | | +--------+ + + + + | 05/21/ | Implant | Cardiology | Daljit Singletary, | Remote Device | 2019 | Monitor | | MD [place] | Interrogation | | | | | [place], | (Primary Dx); | | | | | [place] [address] | Pacemaker; | | | | | [phone] | Sinoatrial node | | | | [...] Resulting Agency Comment | + + | [facility] | + + + +---------+ + [...] Resulting Agency Comment | + + | [facility] | + + + [...] Resulting Agency Comment | + + | [facility] | + + + +---------+ + [...] Resulting Agency Comment | + + | [facility] | + + + [...] Resulting Agency Comment | + + | [facility] | + + + +---------+ + [...] Resulting Agency Comment | + + | [facility] | + + + +---------+ + [...] Agency Comment | + + | [facility] | + + + +---------+ + [...] Resulting Agency Comment | + + | [facility] | + + + +---------+ [...] Resulting Agency Comment | + + | [facility] | + + + +---------+ + [...] Resulting Agency Comment | + + | [facility] | + + + +---------+ [...] Resulting Agency Comment | + + | [facility] | + + + +---------+ [...] Resulting Agency Comment | + + | [facility] | + + + +---------+ + [...] Resulting Agency Comment | + + | [facility] | + + + +---------+ + [...] Agency Comment | + + | [facility] | + + + +---------+ + [...] Resulting Agency Comment | + + | [facility] | + + + +---------+ + [...] Agency Comment | + + | [facility] | + + + +---------+ [...] Resulting Agency Comment | + + | [facility] | + + + +---------+ + [...] Resulting Agency Comment | + + | [facility] | + + + [...] Resulting Agency Comment | + + | [facility] | + + + +---------+ + [...]
--- OUTSIDE RECORDS SUMMARY | ~2020-04-13 | XMS | Encounter Summary ---
Demographics + + + | Address | [address] | | | [place] [address] | + + + | Home Phone [...] Providers + +------+ + | Care Qa Automation Architect Name | Role | Phone | + +------+ + | Kirk French MD | PCP | | + +------+ + Encounter Details +--------+ + + + + | Date | Type | Department | Care Team | Description | +--------+ + + + + | 10/25/ | Hospital [facility] | Kirk French | Aneurysm (HCC) | | 2017 | Encounter | MED CTR ULTRASOUND | D, MD [address] | | | | | [address] [place] | [address] | | | | | [place], [place] | [place] [address] | | | | | [address] | [phone] | | | | | [phone] | | | | | | | [...] + + + +---------+ + + | [place]-3 Fatty | CAPS, one capsule by | [...] | | | | | | [place], | | | | | | [place] [address] | | | | | | [phone] | | | | | | | | +--------+ + + + + | 05/01/ | Procedure | Cardiology | | | | 2019 | visit | | | | +--------+ + + + + | 05/01/ | Office | Cardiology | [place], | | | 2019 | Visit | | [address] | | | | | | [place], | | | | | | [place] [address] | | | | | | [phone] | | | | | | | | +--------+ + + + + | 05/21/ | Implant | Cardiology | Daljit Singletary, | Remote Device | | 2019 | Monitor | | [facility] | Interrogation | | | | | [place], | (Primary Dx); | | | | | [place] [address] | Pacemaker; | | | | | [phone] | Sinoatrial node | | | | [...]
--- OUTSIDE RECORDS SUMMARY | ~2020-04-13 | XMS | Encounter Summary ---
Demographics + + + | Address | [address] [place] [address] [address] | | | [place] [address] | + + + | Home Phone [...] [place] | | | | | [address] | | + + + + + Care Team Providers + +------+ + | Care Information Technology Coordinator Name | Role | Phone [...] | | | [address] | [place], [place] | | | | | Mailcode: [place] | [address] | | | | | for Health and | [phone] | | | | | [facility] | | | | | | [facility] [place] | | | | | | [address] | | | | | | [phone] | | | +--------+ + + + [...]
--- OUTSIDE RECORDS SUMMARY | ~2020-04-13 | XMS | Encounter Summary ---
Demographics + + + | Address | [address] | | | [place] [address] | + + + | Home Phone [...] Providers + +------+ + | Care Business Attorney Name | Role | Phone | [...] | | PVCs | [place] | [address] | | | | | Procedures | [address] | [address] | | | | | CT OFFICE | [place] | [place] | | | | | CONSULTATION | [place], | [address] Phone: | | | | | NEW/ESTAB | [place] | [phone] | | | | | PATIENT 40 | [address] | Fax: | | | | | MIN | Phone: | [phone] | | | | | | [phone] | | | | | | | Fax: | | | | | | | [phone] | | +--------+--------+ + + + + Encounter Details +--------+---------+ + + + | Date | Type | Department | Care Team | Description | +--------+---------+ + + + | 11/30/ | Office | [facility] | Jay Gambino MD | Symptomatic PVCs | | 2015 | Visit | [facility] [place] | [address] | (Primary Dx) | | | | HI[address] | [address] [place], | | | | | [facility] [address] [place] | [place] [address] | | | | | [address] | [phone] | | | | | [phone] | | | +--------+---------+ + + + [...] Gambino MD - 11/30/2014 5:37 PM PST [facility] [address] [place] [address] Patient Name: Moe Sanchez Date: 1960 Date [...] luz marcos as needed for Chest pain. [place]-3 Fatty Acids (SALMON OIL-1000 PO) CAPS, one [...] Hypoglycemia; Drug addiction in remission ([facility]); HTN (hypertension); Hypercholesterolemia; Bipolar 1 [...] were not detected in the editing p [employer]. Should you have any questions or concerns, [...] | | | | | | [place], | | | | | | [place] [address] | | | | | | [phone] | | | | | | | | +--------+ + + + + | 05/01/ | Procedure | Cardiology | | | | 2019 | visit | | | | +--------+ + + + + | 05/01/ | Office | Cardiology | [place], | | | 2019 | Visit | | [address] | | | | | | [place], | | | | | | [place] [address] | | | | | | [phone] | | | | | | | | +--------+ + + + + | 05/21/ | Implant | Cardiology | AnshujohnsoncherelleDaljit, | Remote Device | | 2019 | Monitor | | [address] [facility] | Interrogation | | | | | [place], | (Primary Dx); | | | | | [place] [address] | Pacemaker; | | | | | [phone] | Sinoatrial node | | | | [...]
--- OUTSIDE RECORDS SUMMARY | ~2020-04-13 | XMS | Encounter Summary ---
Demographics + + + | Address | [address] | | | [place] [address] | + + + | Home Phone [...] Organization | [facility] | | | [...] Team Providers + +------+ + | Care Tig Welder Name | Role | Phone | + +------+ + | Kirk French MD | PCP | | + +------+ + Encounter Details +--------+ + + + + | Date | Type | Department | Care Team | Description | +--------+ + + + + | 08/10/ | Orders Only | [facility] | [place], | Mixed hyperlipidemia | | 2016 | | MED CTR LABORATORY | [place] [address] | (Primary Dx) | | | | [address] [place] | [place], | | | | | [place] | [place] [address] | | | | | [address] | [phone] | | | | | [phone] | | | +--------+ + + + [...] W | | | | | | [place], | | | | | | [place] [address] | | | | | | [phone] | | | | | | | | +--------+ + + + + | 05/01/ | Procedure | Cardiology | | | | 2019 | visit | | | | +--------+ + + + + | 05/01/ | Office | Cardiology | [place]via, | | | 2019 | Visit | | [address] | | | | | | [place], | | | | | | [place] [address] | | | | | | [phone] | | | | | | | | +--------+ + + + + | 05/21/ | Implant | Cardiology | Daljit Singletary, | Remote Device | | 2020 | Monitor | | [address] [facility] | Interrogation | | | | | [place], | (Primary Dx); | | | | | [place] [address] | Pacemaker; | | | | | [phone] | Sinoatrial node | | | | [...]
--- OUTSIDE RECORDS SUMMARY | ~2020-04-13 | XMS | Encounter Summary ---
Demographics + + + | Address | [address] | | | [place] [address] | + + + | Home Phone [...] Team Providers + +------+ + | Care Casework Supervisor Name | Role | Phone | + +------+ + | Kirk French MD | PCP | | + +------+ + Encounter Details +--------+---------+ + + + | Date | Type | Department | Care Team | Description | +--------+---------+ + + + | 01/25/ | Surgery | [facility] | Daljit Singletary, | CV LHC | | 2019 | | MED CTR CV INTRA OP | MD [address] | | | | | [address] | [address] [place], | | | | | [place] | [place] [address] | | | | | [address] | [phone] | | | | | [phone] | | | +--------+---------+ + + + [...] by your healthcare provider Date Last Reviewed: 09/22/201619994702-2395 [employer]. [address] [place] [address]. All righ ts reserved. This information is [...] + + + +---------+ + + | [place]-3 Fatty | CAPS, one capsule by [...] | | | | | | [place] [address] | | | | | | [phone] | | | | | | | [...] | | | | | | [place] [address] | | | | | | [phone] | | | | | | | | +--------+ + + + + | 05/21/ | Implant | Cardiology | Daljit Singletary, | Remote Device | | 2019 | Monitor | | MD [address] [place] | Interrogation | | | | | [place], | (Primary Dx); | | | | | [place] [address] | Pacemaker; | | | | | [phone] | Sinoatrial node | | | | [...] (1960) MEDICAL RECORD NUMBER: | | | [id number] OF PROCEDURE: 01/25/2019 SHOCK ABSORBER INSTALLER: Daljit | | | MD Gemini PROCEDURES [...] Sanchez, (1960) | | OF PROCEDURE: 01/25/2019PRIMARY BULLDOZER PRESS OPERATOR: Daljit Singletary MD PROCEDURES | | [...] Aggressive medical management. | | [facility] PROVID[facility]:Kirk French MDFor additional detail as [...] or lesion | | type, unspecified whether [place] or transplanted heart | + + documented [...]
--- OUTSIDE RECORDS SUMMARY | ~2020-04-13 | XMS | Encounter Summary ---
Demographics + + + | Address | [address] | | | [place] [address] | + + + | Home Phone [...] Providers + +------+ + | Care Industrial Fabric Cutter Name | Role | Phone | + +------+ + | Michael Amanda DO | PCP | | + +------+ + Reason for Visit + + + | Reason | Comments | + + + | Follow-up | One month with [facility] 12/25/13 | + + + | Chest Pain | | + + + Encounter Details +--------+---------+ + + + | Date | Type | Department | Care Team | Description | +--------+---------+ + + + | 01/29/ | Office | [facility] | [place], | Other chest pain | | 2013 | Visit | CARDIOLOGY [address] | [place] [address] | (Primary Dx); Chest | | | | [place], | [place], | pain; Coronary | | | | [place] [address] | [place] [address] | artery disease; | | | | [phone] | [phone] | Hyperlipidemia; | | | | | [...] to the emergency room at [facility] with a baljit st pain episode. [...] for Chest pain. 25 tablet 12 [place]-3 Fatty Acids (SALMON OIL-1000 PO) CAPS, one [...] was seen on the emergency room at [place] on 01/26/2014, he was ruled out A [...] pain. He is in class II of [place] Heart Association functional class. There are [...] to go back in 3 days to [place] for an attempt of ablation under [...] symptoms. He is in class II of [place] Heart Association functional class. There are [...] made to ensure accuracy; however, inadvertent computerized tube and manifold builder errors may be pre sent. Electronically signed [...] | | | | | | [place] [address] | | | | | | [phone] | | | | | | | [...] | | | | | | [place] [address] | | | | | | [phone] | | | | | | | | +--------+ + + + + | 05/21/ | Implant | Cardiology | Gemini Shaistakenneth, | Remote Device | | 2019 | Monitor | | [address] [facility] | Interrogation | | | | | [place], | (Primary Dx); | | | | | [place] [address] | Pacemaker; | | | | | [phone] | Sinoatrial node | | | | [...] of unspecified type of vessel, | | wainwright or graft | + + | Hyperlipidemia Other and unspecified hyperlipidemia | + + | Symptomatic PVCs Other premature beats | + + | Hypertension Unspecified essential hypertension | + + documented in this encounter
--- OUTSIDE RECORDS SUMMARY | ~2020-04-13 | XMS | Encounter Summary ---
Demographics + + + | Address | [address] | | | [place] [address] | + + + | Home Phone [...] Providers + +------+ + | Care Fish Hatchery Man Name | Role | Phone | [...] 2016 | | CARDIOLOGY [address] | DIRECTOR OF RECRUITMENT [address] | | | | | [place], | [place], [place] | | | | | [place] [address] | [address] | | | | | [phone] | | | +--------+--------+ + + + [...] | | | | | | [place] [address] | | | | | | [phone] | | | | | | | [...] | | | | | | [place] [address] | | | | | | [phone] | | | | | | | | +--------+ + + + + | 05/21/ | Implant | Cardiology | Daljit Singletary, | Remote Device | | 2019 | Monitor | | [address] [facility] | Interrogation | | | | | [place], | (Primary Dx); | | | | | [place] [address] | Pacemaker; | | | | | [phone] | Sinoatrial node | | | | | | dysfunction (HCC) | | | | | | with symptomatic | | | | | | bradycardia | +--------+ + + + + documented as of this encounter Visit Diagnoses Not on filedocumented in this encounter"
--- OUTSIDE RECORDS SUMMARY | ~2020-04-13 | XMS | Encounter Summary ---
Demographics + + + | Address | [address] | | | [place] [address] | + + + | Home Phone [...] Providers + +------+ + | Care Civil Celebrant Name | Role | Phone | + +------+ + PCP | Unavailable | + +------+ + Encounter Details +--------+ + + + + | Date | Type | Department | Care Team | Description | +--------+ + + + + | [facility] | Naresh Mckeon | | | 2010 | Encounter | MED CTR SLEEP | MD Chaya [address] | | | | | CENTER [address] | [place] | | | | | [place] | [place] [address] | | | | | [address] | [phone] | | | | | [phone] | | | +--------+ + + + [...] | Radiology | Silvai, | | | 2020 | | | [place] [address] | | | | | | [place], | | | | | | [place] [address] | | | | | | [phone] | | | | | | | | +--------+ + + + + | 05/01/ | Procedure | Cardiology | | | | 2019 | visit | | | | +--------+ + + + + | 05/01/ | Office | Cardiology | [place]via | | | 2019 | Visit | | [address] | | | | | | [place], | | | | | | [place] [address] | | | | | | [phone] | | | | | | | | +--------+ + + + + | 05/21/ | Implant | Cardiology | Daljit Singletary, | Remote Device | 2019 | Monitor | | MD [address] [place] | Interrogation | | | | | [place], | (Primary Dx); | | | | | [place] [address] | Pacemaker; | | | | | [phone] | Sinoatrial node | | | | | | dysfunction (HCC) | | | | | | with symptomatic | | | | | | bradycardia | +--------+ + + + + documented as of this encounter Visit Diagnoses Not on filedocumented in this encounter"
--- OUTSIDE RECORDS SUMMARY | ~2020-04-13 | XMS | Encounter Summary ---
Demographics + + + | Address | [address] | | | [place] [address] | + + + | Home Phone [...] Providers + +------+ + | Care Candy Butcher Name | Role | Phone | + [...] 2019 | | GASTROENTEROLOGY | [address], [place] | Recommendations | | | | [address] [place] | [address] [place], [place] | | | | | [address] [place], [place] | [address] | | | | | [address] | | | | | | [phone] | | | +--------+ + + + [...] | | | | | | [place] [address] | | | | | | [phone] | | | | | | | | +--------+ + + + + | 05/01/ | Procedure | Cardiology | | | | 2019 | visit | | | | +--------+ + + + + | 05/01/ | Office | Cardiology | [place]via, | | | 2019 | Visit | | [place] [address] | | | | | | [place], | | | | | | [place] [address] | | | | | | [phone] | | | | | | | | +--------+ + + + + | 05/21/ | Implant | Cardiology | Daljit Singletary, | Remote Device | 2019 | Monitor | | [address] [facility] | Interrogation | | | | | [place], | (Primary Dx); | | | | | [place] [address] | Pacemaker; | | | | | [phone] | Sinoatrial node | | | | | | dysfunction (HCC) | | | | | | with symptomatic | | | | | | bradycardia | +--------+ + + + + documented as of this encounter Visit Diagnoses Not on filedocumented in this encounter"
--- OUTSIDE RECORDS SUMMARY | ~2020-04-13 | XMS | Encounter Summary ---
Demographics + + + | Address | [address] | | | [place] [address] | + + + | Home Phone [...] Providers + +------+ + | Care Air Analyst Name | Role | Phone | [...] | Telephone | [facility] [place] | [place], | LABS | | 2019 | | CARDIOLOGY [address] | Janeen OTM CONSULTANT [address] | | | | | [place], | [place], | | | | | [place] [address] | [place] [address] | | | | | [phone] | [phone] | | | | | | | [...] | | | | | | [place] [address] | | | | | | [phone] | | | | | | | [...] | | | | | | [place] [address] | | | | | | [phone] | | | | | | | | +--------+ + + + + | 05/21/ | Implant | Cardiology | Daljit Singletary, | Remote Device | | 2019 | Monitor | | [address] [place] | Interrogation | | | | | [place], | (Primary Dx); | | | | | [place] [address] | Pacemaker; | | | | | [phone] | Sinoatrial node | | | | [...]
--- OUTSIDE RECORDS SUMMARY | ~2020-04-13 | XMS | Encounter Summary ---
Demographics + + + | Address | [address] [place] [address] CALEB LOZANO | | | [place] [address] | + + + | Home Phone [...] [place] | | | | | [address] | | + + + + + [...] Chest pain | Farooq Almaguer, | [address] | | | | | Bradycardia | DO [address] | Tremayne [place] | | | | | Procedures | Yao Booth | Mailcode: | | | | | | Palak Desai | [facility] | | | | | TRANSTHORACI | [place], [place] | for Health | | | | | C | [address] | and Healing, | | | | | ECHOCARDIOGR | Phone: | Building 1 | | | | | AM, ADULT | [phone] | [place], [place] | | | | | | Fax: | [address] | | | | | | [phone] | Phone: | | | | | | | [phone] | +--------+--------+ + + + + Encounter Details +--------+ + + + + | Date | Type | Department | Care Team | Description | +--------+ + + + + | 02/03/ | Hospital | Cardiac | | | | 2010 | Encounter | Non-Invasive Testing | | | | | | at [facility] [address] | | | | | [address] Mailcode: [facility] | | | | | | [facility] | | | | | | and Healing, | | | | | | Building [address] | | | | | | [place], [place] | | | | | | [address] | | | | | | [phone] | | | +--------+ + + + [...]
--- OUTSIDE RECORDS SUMMARY | ~2020-04-13 | XMS | Encounter Summary ---
Demographics + + + | Address | [address] | | | [place] [address] | + + + | Home Phone [...] Providers + +------+ + | Care Continuous Mining Machine Lode Miner Name | Role | Phone | [...] + + | 04/24/ | Office | [facility] | Silvia, | Symptomatic PVCs | | 2012 | Visit | CARDIOLOGY [address] | PARISA [address] | (Primary Dx); CAD; | | | | [place], | [place], | Hyperlipidemia; | | | | [place] [address] | [place] [address] | PACEMAKER, PERMANENT | | | | [phone] | [phone] | - [employer] | | | | [...] tablet by mouth Daily. 30 tablet 6 Quilcene-3 Fatty Acids (SALMON OIL-1000 PO) CAPS, one [...] Reviewed records from PCP and [facility] from [facility]. Assessment: 1. Symptomatic PVCs status post [...] to go back in 3 days to [place] for an attempt of ablation under general [...] He is upgraded to class I of [place] [employer] functional class. There are no [...] made to ensure accuracy; however, inadvertent computerized radiological technologist errors may be pre sent. documented in this encounter Plan of Treatment +--------+ + + + + | Date | Type | Specialty | Care Team | Description | +--------+ + + + + | 05/01/ | Appointment | Radiology | Silvia, | | | 2019 | | | PARISA [address] | | | | | | [place], | | | | | | [place] [address] | | | | | | [phone] | | | | | | | | +--------+ + + + + | 05/01/ | Procedure | Cardiology | | | | 2019 | visit | | | | +--------+ + + + + | 05/01/ | Office | Cardiology | Silvia, | | | 2019 | Visit | | PARISA [address] | | | | | | [place], | | | | | | [place] [address] | | | | | | [phone] | | | | | | | | +--------+ + + + + | 05/21/ | Implant | Cardiology | Daljit Singletary, | Remote Device | | 2019 | Monitor | | [address] [facility] | Interrogation | | | | | [place], | (Primary Dx); | | | | | [place] [address] | Pacemaker; | | | | | [phone] | Sinoatrial node | | | | [...] Coronary atherosclerosis of unspecified type of vessel, gulkana or graft | + + | Hyperlipidemia Other and unspecified hyperlipidemia | + + | PACEMAKER, PERMANENT - [employer] 06/14/09GRANT Cardiac pacemaker in situ | + + documented in this encounter
--- OUTSIDE RECORDS SUMMARY | ~2020-04-13 | XMS | Encounter Summary ---
Demographics + + + | Address | [address] | | | [place] [address] | + + + | Home Phone [...] Providers + +------+ + | Care Communication Electronic Technician Name | Role | Phone | [...] | CARDIOLOGY [address] | MD [address] [place] | | | | | [place], | [place], | | | | | [place] [address] | [place] [address] | | | | | [phone] | [phone] | | | | | | | [...] | | | | | | [place] [address] | | | | | | [phone] | | | | | | | | +--------+ + + + + | 05/01/ | Procedure | Cardiology | | | | 2019 | visit | | | | +--------+ + + + + | 05/01/ | Office | Cardiology | Silvia, | | | 2019 | Visit | | PARISA Vernon [address] | | | | | | [place], | | | | | | [place] [address] | | | | | | [phone] | | | | | | | | +--------+ + + + + | 05/21/ | Implant | Cardiology | Daljit Singletary, | Remote Device | 2019 | Monitor | | [address] [facility] | Interrogation | | | | | [place], | (Primary Dx); | | | | | [place] [address] | Pacemaker; | | | | | [phone] | Sinoatrial node | | | | | | dysfunction (HCC) | | | | | | with symptomatic | | | | | | bradycardia | +--------+ + + + + documented as of this encounter Visit Diagnoses Not on filedocumented in this encounter"
--- OUTSIDE RECORDS SUMMARY | ~2020-04-13 | XMS | Encounter Summary ---
Demographics + + + | Address | [address] | | | [place] [address] | + + + | Home Phone [...] Providers + +------+ + | Care Principal Mechanical Engineer Name | Role | Phone [...] | CARDIOLOGY [address] | [address] [place] | [facility]) | | | | [place], | [place], | | | | | [place] [address] | [place] [address] | | | | | [phone] | [phone] | | | | | | | [...] | | | | | | [place] [address] | | | | | | [phone] | | | | | | | | +--------+ + + + + | 05/01/ | Procedure | Cardiology | | | | 2019 | visit | | | | +--------+ + + + + | 05/01/ | Office | Cardiology | Silvia, | | | 2019 | Visit | | PARISA Vernon [address] | | | | | | [place], | | | | | | [place] [address] | | | | | | [phone] | | | | | | | | +--------+ + + + + | 05/21/ | Implant | Cardiology | Daljit Singletary, | Remote Device | 2019 | Monitor | | [address] [facility] | Interrogation | | | | | [place], | (Primary Dx); | | | | | [place] [address] | Pacemaker; | | | | | [phone] | Sinoatrial node | | | | | | dysfunction (HCC) | | | | | | with symptomatic | | | | | | bradycardia | +--------+ + + + + documented as of this encounter Visit Diagnoses Not on filedocumented in this encounter"
--- OUTSIDE RECORDS SUMMARY | ~2020-04-13 | XMS | Encounter Summary ---
Demographics + + + | Address | [address] | | | [place] [address] | + + + | Home Phone [...] Providers + +------+ + | Care Ceo Name | Role | Phone | + +------+ + PCP | Unavailable | + +------+ + Encounter Details +--------+ + + + + | Date | Type | Department | Care Team | Description | +--------+ + + + + | 11/12/ | Hospital | [facility] | | | | 1994 | Encounter | MED CTR GENERIC OP | | | | | | CONV DEPT [address] | | | | | | [place], | | | | | | [place] [address] | | | | | | [phone] | | | +--------+ + + + [...] | | | | | | [place] [address] | | | | | | [phone] | | | | | | | | +--------+ + + + + | 05/01/ | Procedure | Cardiology | | | | 2019 | visit | | | | +--------+ + + + + | 05/01/ | Office | Cardiology | Silvia, | | | 2019 | Visit | | [address] | | | | | | [place], | | | | | | [place] [address] | | | | | | [phone] | | | | | | | | +--------+ + + + + | 05/21/ | Implant | Cardiology | Daljit Singletary, | Remote Device | 2019 | Monitor | | [place] [address] [place] | Interrogation | | | | | [place], | (Primary Dx); | | | | | [place] [address] | Pacemaker; | | | | | [phone] | Sinoatrial node | | | | | | dysfunction (HCC) | | | | | | with symptomatic | | | | | | bradycardia | +--------+ + + + + documented as of this encounter Visit Diagnoses Not on filedocumented in this encounter"
--- OUTSIDE RECORDS SUMMARY | ~2020-04-13 | XMS | Encounter Summary ---
Demographics + + + | Address | [address] | | | [place] [address] | + + + | Home Phone [...] Team Providers + +------+ + | Care Counselling Psychologist Name | Role | Phone | [...] | initial encounter; | | | | [place], [place] | | Elevated blood | | | | [address] | | pressure reading; | | | | [phone] | | Numbness and | | | [...] + + + +---------+ + + | Orient-3 Fatty | CAPS, one capsule by | [...] | | | | | | [place] [address] | | | | | | [phone] | | | | | | | | +--------+ + + + + | 05/01/ | Procedure | Cardiology | | | | 2019 | visit | | | | +--------+ + + + + | 05/01/ | Office | Cardiology | Silvia, | | | 2019 | Visit | | [address] | | | | | | [place], | | | | | | [place] [address] | | | | | | [phone] | | | | | | | | +--------+ + + + + | 05/21/ | Implant | Cardiology | Daljit Singletary, | Remote Device | | 2020 | Monitor | | [address] [facility] | Interrogation | | | | | [place], | (Primary Dx); | | | | | [place] [address] | Pacemaker; | | | | | [phone] | Sinoatrial node | | | | [...]
--- OUTSIDE RECORDS SUMMARY | ~2020-04-13 | XMS | Encounter Summary ---
Demographics + + + | Address | [address] | | | [place] [address] | + + + | Home Phone [...] +------+ + | Care Teacher Of The Deaf/Hard Of Hearing Name | Role | Phone | + [...] + + | 01/05/ | Office | [facility] | Silvia, | Pacemaker - | | 2018 | Visit | CARDIOLOGY [address] | PARISA [address] | [employer] - [id number] | | | | [place], | [place], | [place] - Implanted | | | | [place] [address] | [place] [address] | 06/14/2009 (Primary | | | | [phone] | [phone] | Dx); Chest pain, | | | [...] involving | | | | | | sun'aq coronary | | | | | | artery of sun'aq | | | | | | heart [...] of non-critical coronary artery d isease involving sun'aq coronary artery of sun'aq heart without angina pectoris, essential h ypertension, [...] pain. He went to the ER in [place] because th e NTG didn't relieved the pain. He was diagnosed with bronchitis. Otherwise he has had no ot her symptoms. He has had a good energy level. He tries to stay active. He has joined a [employer] gym and trying to exercise more often. [...] Preventative health care Coronary artery disease involving sun'aq coronary artery of sun'aq heart without angina pectoris Cannabis abuse, daily [...] every evening 90 tablet 0 [facility] [...] 3RD DOSE, CALL 911 100 tablet 3 [place]-3 Fatty Acids (SALMON OIL-1000 PO) CAPS, one [...] 131 (A) 10/18/2017 I reviewed records from [facility] for office visit on 01/2017 whic [...] overload. 2. Non-critical Coronary artery disease involving sun'aq coronary a rtery of sun'aq heart without angina pectoris: A. Normal exercise [...] to go back in 3 days to [place] for an attempt of ablation under general [...] a normal stable device function. Estimated remaining [facility] longevity is 3.5 years.. 5. Lightheadedness [...] this chart may have been created with sfilatino voice recognition software. Occasi onal wrong-word or [...] | | | | | | [place] [address] | | | | | | [phone] | | | | | | | [...] | | | | | | [place] [address] | | | | | | [phone] | | | | | | | | +--------+ + + + + | 05/21/ | Implant | Cardiology | Sydni Singletary, | Remote Device | 2019 | Monitor | | [address] [place] | Interrogation | | | | | [place], | (Primary Dx); | | | | | [place] [address] | Pacemaker; | | | | | [phone] | Sinoatrial node | | | | [...] | | | | | ([facility]) with | | | | | | symptomatic | | | | | | bradycardia | | | | | | Symptomatic PVCs | | | | | | Tachycardia | | | | | | Coronary artery | | | | | | disease involving | | | | | | sun'aq coronary | | | | | | artery of sun'aq | | | | | | heart [...] | | | | | ([facility]) | | + +--------+ + [...] SYDNI | | | | | | ([id number]) on 01/06/2018 | | | | | [...] Coronary artery disease involving sun'aq coronary artery of sun'aq heart without | | angina pectoris | + + | Hyperlipidemia, mixed Mixed hyperlipidemia | + + | Hypertension, unspecified type | + + | Syncope, unspecified syncope type | + + | Ascending thoracic aortic aneurysm (HCC) Thoracic aneurysm without mention of rupture | + + documented in this encounter
--- OUTSIDE RECORDS SUMMARY | ~2020-04-13 | XMS | Encounter Summary ---
Demographics + + + | Address | [address] | | | [place] [address] | + + + | Home Phone [...] Providers + +------+ + | Care Log Check Scaler Name | Role | Phone | + [...] | | GASTROENTEROLOGY | [address] [place], [place] | about prep for | | | | [address] [place] | [address] [place], [place] | procedure) | | | | [address] [place], [place] | [address] | | | | | [address] | | | | | | [phone] | | | +--------+ + + + [...] | | | | | | [place] [address] | | | | | | [phone] | | | | | | | [...] | | | | | | [place] [address] | | | | | | [phone] | | | | | | | | +--------+ + + + + | 05/21/ | Implant | Cardiology | Daljit Singletary, | Remote Device | 2019 | Monitor | | [address] [place] [place] | Interrogation | | | | | [place], | (Primary Dx); | | | | | [place] [address] | Pacemaker; | | | | | [phone] | Sinoatrial node | | | | | | dysfunction (HCC) | | | | | | with symptomatic | | | | | | bradycardia | +--------+ + + + + documented as of this encounter Visit Diagnoses Not on filedocumented in this encounter"
--- OUTSIDE RECORDS SUMMARY | ~2020-04-13 | XMS | Encounter Summary ---
Demographics + + + | Address | [address] | | | [place] [address] | + + + | Home Phone [...] | Author | [facility] | | | [...] Team Providers + +------+ + | Care Validation Leader Name | Role | Phone | [...] [place] | | | | | | [address] | [address] Phone: | | | | | | Phone: | [phone] | | | | | | [phone] | Fax: | | | | | | Fax: | [phone] | | | | | | [phone] | | +--------+ + + + + + Reason for Visit + + + | Reason | Comments | + + + | Medicare Wellness | | + + + Encounter Details +--------+---------+ + + + | Date | Type | Department | Care Team | Description | +--------+---------+ + + + | 07/25/ | Office | [facility] | Micheal Amanda, | Preventative health | | 2014 | Visit | [facility] [place] | DO [address] | care (Primary Dx); | | | | [address] | [place] | Cannabis abuse, | | | | [place] | [address] | daily use; Urinary | | | | [address] | | frequency; | | | | [phone] | | Incontinence; | | | | [...] needed for Chest pain. 25 tablet 12 [place]-3 Fatty Acids (SALMON OIL-1000 PO) CAPS, one [...] as Nurse Practitioner (Cardiology) FENG Chou (Physician Switchgear Repairer) Current Medicare Suppliers: [facility] - [place], [place] - [address] [place] [address] [facility] - [place], [place] - [address] [place] [address] HEALTH RISK ASSESSMENT: : The patient or [...] following health maintenance items are reviewed in [facility] and correct as of today: Health [...] no kevin in the usual sections in [employer]. documented in this en counter Plan of Treatment +--------+ + + + + | Date | Type | Specialty | Care Team | Description | +--------+ + + + + | 05/01/ | Appointment | Radiology | Silvia, | | | 2019 | | | PARISA Vernon [address] | | | | | | [place], | | | | | | [place] [address] | | | | | | [phone] | | | | | | | | +--------+ + + + + | 05/01/ | Procedure | Cardiology | | | | 2019 | visit | | | | +--------+ + + + + | 05/01/ | Office | Cardiology | Silvia, | | | 2019 | Visit | | PARISA Vernon [address] | | | | | | [place], | | | | | | [place] [address] | | | | | | [phone] | | | | | | | | +--------+ + + + + | 05/21/ | Implant | Cardiology | Daljit Singletary, | Remote Device | 2019 | Monitor | | [place] | Interrogation | | | | | [place], | (Primary Dx); | | | | | [place] [address] | Pacemaker; | | | | | [phone] | Sinoatrial node | | | | [...] Primary Routine general medical examination at a [facility] | | care facility | [...]
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
[2020-04-13] MEDS ORDERED: DICLOFENAC SODI75 MG PO (21:45)
== END 2020-04-13 21:53 | disposition home or self-care (01) ==
LOC: ED 20:45
DX: S46.911A Strain of unspecified muscle, fascia and tendon at shoulder and upper arm level, right arm, initial encounter (principal); I10 Essential (primary) hypertension; E78.00 Pure hypercholesterolemia, unspecified; Z88.0 Allergy status to penicillin; Z88.5 Allergy status to narcotic agent; Z79.899 Other long term (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; X58.XXXA Exposure to other specified factors, initial encounter
CPT/HCPCS: 73030; 99283-25

== ENCOUNTER 2020-04-15 20:02 | Emergency (ER) | payer MEDICARE ==
[~2020-04-15] VITALS: Ht 193 cm; Wt 117.9 kg
--- OUTSIDE RECORDS SUMMARY | ~2020-04-15 | XMS | Encounter Summary ---
Demographics + + + | Address | [address] | | | [place] [address] | + + + | Home Phone | | + + + | Preferred Language | Unknown | + + + | Marital Status | | + + + | Adventism Affiliation | [id number] | + + + | Race | Unknown | + + + | Ethnic Group | Unknown | + + + Author + + + | Author | [facility] | | | and [place] | + + + | Organization | [facility] | | | and [...] Team Providers + +------+ + | Care Wool Shearer Name | Role | Phone | + +------+ + | Michael Amanda DO | PCP | | + +------+ + Reason for Visit + + + | Reason | Comments | + + + | Appointment | | + + + Encounter Details +--------+ + + + + | Date | Type | Department | Care Team | Description | +--------+ + + + + | 09/27/ | Telephone | [facility] | Geri Angel, | Appointment | | 2012 | | CARDIOLOGY [address] | 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 [address] | | | | | [address] [place] [place], | [address] [place], [place] | | | | | [place] [address] | [address] | | | | | [phone] | | | +--------+ + + + + Social History + +--------+ +--------+ + | Tobacco Use | Types | Packs/Day | Years | Date | | | | | Used | | + +--------+ +--------+ + | Former Smoker | Cigars | | | Quit: 06/12/2009 | + +--------+ +--------+ + + +---+---+---+ | Smokeless Tobacco: | | | | | Never Used | | | | + +---+---+---+ + + | Comments: 1 cigar twice a year for 30 (when he went fishing) | + + + + +---------+ + | Alcohol Use | Drinks/Week | oz/Week | Comments | + + +---------+ + | Yes | | | | + + +---------+ [...] | +--------+ + + + + | 05/01/ | Appointment | Radiology | [place], | | | 2019 | | | [address] | | | | | | [place], | | | | | | [place] [address] | | | | | | [phone] | | | | | | | | +--------+ + + + + | 05/01/ | Procedure | Cardiology | | | | 2019 | visit | | | | +--------+ + + + + | 05/01/ | Office | Cardiology | [place], | | | 2019 | Visit | | [address] | | | | | | [place], | | | | | | [place] [address] | | | | | | [phone] | | | | | | | | +--------+ + + + + | 05/21/ | Implant | Cardiology | Daljit Singletary, | Remote Device | 2019 | Monitor | | MD Chiquis Oro | Interrogation | | | | | [place], | (Primary Dx); | | | | | [place] [address] | Pacemaker; | | | | | [phone] | Sinoatrial node | | | | | | dysfunction (HCC) | | | | | | with symptomatic | | | | | | bradycardia | +--------+ + + + + documented as of this encounter Visit Diagnoses Not on filedocumented in this encounter"
--- OUTSIDE RECORDS SUMMARY | ~2020-04-15 | XMS | Encounter Summary ---
Demographics + + + | Address | [address] | | | [place] [address] | + + + | Home Phone | | + + + | Preferred Language | Unknown | + + + | Marital Status | | + + + | Methodist Affiliation | 1013 | + + + | Race | Unknown | + + + | Ethnic Group | Unknown | + + + Author + + + | Author | [facility] | | | and [place] | + + + | Organization | [facility] | | | [...] Team Providers + +------+ + | Care Rigging Up Worker Name | Role | Phone | + +------+ + | Michael Amanda DO | PCP | | + +------+ + Reason for Visit + + + | Reason | Comments | + + + | Follow-up | One month with [facility] 12/25/13 | + + + | Chest Pain | | + + + Encounter Details +--------+---------+ + + + | Date | Type | Department | Care Team | Description | +--------+---------+ + + + | 01/29/ | Office | [facility] | Silvia, | Other chest pain | | 2013 | Visit | CARDIOLOGY [address] | PARISA [address] | (Primary Dx); Chest | | | | [place], | [place], | pain; Coronary | | | | [place] [address] | [place] [address] | artery disease; | | | | [phone] | [phone] | Hyperlipidemia; | | | | | | Symptomatic PVCs; | | | | | | Hypertension | +--------+---------+ + + + Social History [...] + + + | Blood Pressure | 110/88 | 01/29/2014 2:07 PM | Left | | | | PDT | | + + + + + | Pulse | 78 | 01/29/2014 2:07 PM | | | | | PDT | | + + + + + | Temperature | - | - | | + + + + + | Respiratory Rate | 22 | 01/29/2014 2:07 PM | | | | | PDT | | + + + + + | Oxygen Saturation | - | - | | + + + + + | Inhaled Oxygen | - | - | | | Concentration | | | | + + + + + | Weight | 117.5 kg (259 lb) | 01/29/2014 2:07 PM | | | | | PDT | | + + + + + | Height | 193 cm (6' 4") | 01/29/2014 2:07 PM | | | | | PDT | | + + + + + | Body Mass Index | 31.53 | 01/29/2014 2:07 PM | | | | | PDT | | + + + + + documented in this encounter Progress Notes JamesCoryPARISA villarreal - 01/29/2014 2:08 PM PDTFormatting of this note might be different f rom the original. PATIENT NAME: Moe Sanchez : 1960: AGE: 53 y.o. PRIMARY CARE: Michael Amanda DO OUTPATIENT FOLLOW UP VISIT Date of Service: 01/29/2014 HISTORY OF PRESENT ILLNESS: Moe Sanchez is a 53 y.o. 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 He is being seen today for follow up coronary artery disease and chest pain. He was last seen 12/21/2013 at which time he was scheduled for left heart catheterization. Since that time, he had a visit last week to the emergency room at [facility] with a baljit st pain episode. Patient was ruled out acute coronary syndrome and was discharged home with a new prescription for isosorbide mononitrate 30 mg by mouth daily. Since then, patient paulino s been having headaches but he states that his chest pain has actually disappeared. Patient denies any increased shortness of breath at rest or on exertion, he denies any lightheadedn ess, dizziness, palpitations or leg swelling. Patient continues to be able to sleep with 1 or 2 pillows without experiencing any increase shortness of breath. MEDICAL, SURGICAL, AND PERSONAL HISTORY Past Medical, [...] CURRENT MEDICATIONS Outpatient Encounter Prescriptions as of 01/29/2014 Medication Sig Dispense Refill Ascorbic Acid (VITAMIN C) 1000 MG tablet Take 1,000 mg by mouth Daily. aspirin 81 MG tablet Take 81 mg by mouth Daily. diazepam (VALIUM) 5 mg tablet Take 2.5 [...] needed. Done b y his pain clinic Magnesium 500 MG CAPS Take 500 mg by mouth Daily. MELATONIN TABS, at bedtime as needed metoprolol (TOPROL-XL) 200 MG 24 hr tablet TAKE ONE TABLET BY MOUTH EVERY DAY 30 table t 5 Misc Natural Products (OSTEO BI-FLEX/5-LOXIN ADVANCED PO) Take by mouth. Takes 2 table ts in the morning and 2 tablets at night nitroglycerin (NITROSTAT) 0.[address] 1 tablet under the tongue every 5 luz marcos as needed for Chest pain. 25 tablet 12 [place]-3 Fatty Acids (SALMON OIL-1000 PO) CAPS, one capsule by mouth daily twice daily ONE TOUCH DELICA LANCETS MISC Check glucose as needed for hypoglycemia 100 each 3 pravastatin (PRAVACHOL) 40 MG tablet TAKE ONE TABLET BY MOUTH EVERY DAY 90 tablet 0 promethazine (PHENERGAN) 25 mg tablet Take 25 mg by mouth every 8 hours as needed. UNCODED MEDICATION Diagnosis: Obstructive Sleep Apnea ICD-9: 327.23 Length of Need: 99 Months 1 Device 0 valACYclovir (VALTREX) 500 mg tablet Take 1 tablet daily 90 tablet 3 ALLERGIES Allergies Allergen Reactions Alcohol-Fentanyl Clarithromycin Duloxetine Hydrocodone Penicillins Tramadol Hcl ROS Review of Systems Constitutional: Negative for fever, weight loss and malaise/fatigue. Cardiovascular: Positive for chest pain. Negative for palpitations and leg swelling. OBJECTIVE: PHYSICAL EXAM BP 110/88 | Pulse 78 | Resp 22 | Ht 1.93 m (6' 4") | Wt 117.482 kg (259 lb) | BMI 31.54 kg/ m2 Physical Exam Constitutional: He is [...] not exh ibit a depressed mood. ECG: Atrial paced rhythm with prolonged A-V conduction, heart rate 77 beats per minute, no acute ST- changesT LAB RESULTS: LIPID Lab Results Component Value Date TRIG 88 05/27/2012 HDL 42 05/27/2012 LDL 173* 05/27/2012 CHOLHDL 3.1 08/08/2013 LDLEX 96 08/08/2013 HDLEX 51.0* 08/08/2013 TRIGEX 63 08/08/2013 CHOLEX 160 08/08/2013 CHEMISTRY Lab Results Component Value Date GLU 80 08/08/2013 NA 151 08/08/2013 K 4.4 08/08/2013 CL 115 08/08/2013 CO2 29 08/08/2013 CALCIUM 9.1 08/08/2013 ALKPHOS 63 08/08/2013 AST 26 12/12/2012 ALT 22 12/12/2012 BILITOT 0.5 08/08/2013 CREA 0.75 04/03/2013 BUN 15 08/08/2013 EGFR >60 04/03/2013 EGFREX >60 08/08/2013 CREEX 0.93 08/08/2013 HEMATOLOGY Lab Results Component Value Date WBC 4.5 04/03/2013 HGB 15.3 04/03/2013 HCT 43.5 04/03/2013 PLT 141* 04/03/2013 I personally reviewed records from another healthcare provider. ASSESSMENT: 1. Noncritical coronary artery disease: A. Normal exercise sestamibi [...] attenuation cannot completely be ruled out. D. LHC 12/25/13, shows noncritical coronary artery disease, mild ecstatic change to the le ft main artery, the coronary circulation is right dominant, normal left ventricular size, wa ll thickness and motion, preserved left ventricular systolic function, LVEF is 75%, normal s ystemic blood pressure, successful TR band application to the right radial artery. E. patient was seen on the emergency room at [place] on 01/26/2014, he was ruled out A CS and was sent home in stable condition with a prescription for isosorbide. Since patient started taking isosorbide he has noticed that his chest pain has improved however, now he is having a headache a side effect of isosorbide. At this time, patient states he is not havi ng any chest pain. He is in class II of [place] [employer] functional class. There are no signs or symptoms of overt congestive heart failure. On physical examination there are no signs of fluid overload. Patient is in therapy with statin, aspirin, beta edvin, a nd long acting nitrates. 2. Symptomatic PVC's status post ablation: [...] ventricular arrhythmia performed by Dr. Gambino at [facility] on 01/30/2013. Patient had spontaneous PVCs [...] to go back in 3 days to [place] for an attempt of ablation under general [...] any of the transmissions. E. Today, patient reports full resolution os symptoms. He is in class II of [place] [employer] functional class. There are no signs or symptoms of overt congestive heart fail ure. There is no fluid retention on physical examination. Patient continues on diltiazem a nd metoprolol. 3. Profound bradycardia associated with dizziness, lightheadedness, and syncope: A. The echocardiogram on 05/25/09 revealed a normal left ventricular size and sys tolic function, LVEF 65 to 70%. B. Medtronic DDD permanent pacemaker implantation on 06/14/[address] Daljit masters. C. Today his device interrogation shows a normal stable function. 4. Hypertension. A. Today blood pressure is well controlled. 5. Lightheadedness and dizziness/ presyncope: A. Episode of presyncope 05/28/10 evaluated in the emergency department, thought to have vasovagal symptoms. B.Today patient has no further lightheadedness dizziness or syncope. 6. History of cigarette smoking. 7. Bipolar disease with anxiety/depression PLAN: 1. Continue Isosorbide mononitrate 30 mg by mouth daily for chest pain. Patient has been encouraged to contact my office if he continues to develop more chest pain or is this isoso rbide he stopped working for him. 2. Patient also has been encouraged to continue with a more healthy lifestyle and physical activity on a regular basis. 3. Follow up appointment in one month to followup in chest pain and for device interrogatio n I, PARISA Russell, saw this patient under the direct supervision of Daljit Singletary MD Portions of this report were transcribed using voice recognition software. Every effort wa s made to ensure accuracy; however, inadvertent computerized taker off errors may be pre sent. Electronically signed by: PARISA Russell 01/29/2014 14:08 documented in this encounter Plan of Treatment +--------+ + + + + | Date | Type | Specialty | Care Team | Description | +--------+ + + + + | 05/01/ | Appointment | Radiology | Silvia, | | | 2019 | | | [address] | | | | | | [place], | | | | | | [place] [address] | | | | | | [phone] | | | | | | | [...] | | | | | | [place] [address] | | | | | | [phone] | | | | | | | | +--------+ + + + + | 05/21/ | Implant | Cardiology | Gemini Shaistakenneth, | Remote Device | | 2019 | Monitor | | [address] [facility] | Interrogation | | | | | [place], | (Primary Dx); | | | | | [place] [address] | Pacemaker; | | | | | [phone] | Sinoatrial node | | | | | | dysfunction ([facility]) | | | | | | with symptomatic | | | | | | bradycardia | +--------+ + + + + + +------+--------+ + + | Name | Type | Priori | Associated Diagnoses | Order Schedule | | | | ty | | | + +------+--------+ + + | ECG 12 lead | ECG | Routin | Other chest pain | Ordered: 01/29/2014 | | | | e | | | + +------+--------+ + + documented as of this encounter Procedures + +--------+ + + + | Procedure Name | Priori | Date/Time | Associated Diagnosis | Comments | | | ty | | | | + +--------+ + + + | ECG - EXTERNAL SCAN | | 01/29/2014 | | Results for this | | | | 12:00 AM | | procedure are in the | | | | PDT | | results section. | + +--------+ + + + documented in this encounter Results ECG - EXTERNAL SCAN (01/29/2014 12:00 AM PDT) + + + | Narrative | Performed At | + + + | Ordered by an | | | unspecified provider. | | + + + + + | Transcriptions | + + | Randa Melo - 01/29/2014 12:00 AM PDT | + + documented in this encounter Visit Diagnoses + + | Diagnosis | + + | Other chest pain - Primary | + + | Chest pain Chest pain, unspecified | + + | Coronary artery disease Coronary atherosclerosis of unspecified type of vessel, | | [place] or graft | + + | Hyperlipidemia Other and unspecified hyperlipidemia | + + | Symptomatic PVCs Other premature beats | + + | Hypertension Unspecified essential hypertension | + + documented in this encounter
--- OUTSIDE RECORDS SUMMARY | ~2020-04-15 | XMS | Encounter Summary ---
Demographics + + + | Address | [address] | | | [place] [address] | + + + | Home Phone | | + + + | Preferred Language | Unknown | + + + | Marital Status | | + + + | Jain Affiliation | 1013 | + + + | Race | Unknown | + + + | Ethnic Group | Unknown | + + + Author + + + | Author | [facility] | | | and [place] | + + + | Organization | [facility] | | | [...] Team Providers + +------+ + | Care Linoleum Tile Layer Name | Role | Phone | + +------+ + | Kirk French MD | PCP | | + +------+ + Encounter Details +--------+ + + + + | Date | Type | Department | Care Team | Description | +--------+ + + + + | 12/25/ | Orders Only | [facility] [place] | Darlene Tirado, | | | 2017 | | CARDIOLOGY [address] | RN | | | | | [place], | | | | | | [place] [address] | | | | | | [phone] | | | +--------+ + + + [...] | Radiology | Silvia, | | | 2020 | | | [address] | | | | | | [place], | | | | | | [place] [address] | | | | | | [phone] | | | | | | | | +--------+ + + + + | 05/01/ | Procedure | Cardiology | | | | 2019 | visit | | | | +--------+ + + + + | 05/01/ | Office | Cardiology | Silvia | | | 2019 | Visit | | [address] | | | | | | [place], | | | | | | [place] [address] | | | | | | [phone] | | | | | | | | +--------+ + + + + | 05/21/ | Implant | Cardiology | Daljit Singletary, | Remote Device | | 2019 | Monitor | | [address] [place] | Interrogation | | | | | [place], | (Primary Dx); | | | | | [place] [address] | Pacemaker; | | | | | [phone] | Sinoatrial node | | | | | | dysfunction (HCC) | | | | | | with symptomatic | | | | | | bradycardia | +--------+ + + + + documented as of this encounter Visit Diagnoses Not on filedocumented in this encounter"
--- OUTSIDE RECORDS SUMMARY | ~2020-04-15 | XMS | Encounter Summary ---
Demographics + + + | Address | [address] | | | [place] [address] | + + + | Home Phone | | + + + | Preferred Language | Unknown | + + + | Marital Status | | + + + | Mandaeism Affiliation | 1013 | + + + | Race | Unknown | + + + | Ethnic Group | Unknown | + + + Author + + + | Author | [facility] | | | and [place] | + + + | Organization | [facility] | | | [...] Team Providers + +------+ + | Care Automobile And Property Underwriter Name | Role | Phone | + +------+ + | Kirk French MD | PCP | | + +------+ + Reason for Visit +--------+ + | Reason | Comments | +--------+ + | Other | Pacemaker | +--------+ + Encounter Details +--------+ + + + + | Date | Type | Department | Care Team | Description | +--------+ + + + + | 01/01/ | Telephone | [facility] | Kirk French | Other (Pacemaker) | | 2020 | | [facility] | MD [address] | | | | | PRIMARY [facility] [address] | [address] | | | | | [address] | [place] [address] | | | | | [place], [place] | [phone] | | | | | [address] | | | | | | [phone] | | | +--------+ + + + [...] [place], | | | | | | [place] [address] | | | | | | [phone] | | | | | | | | +--------+ + + + + | 05/01/ | Procedure | Cardiology | | | | 2019 | visit | | | | +--------+ + + + + | 05/01/ | Office | Cardiology | Silvia, | | | 2019 | Visit | | [address] [address] | | | | | | [place], | | | | | | [place] [address] | | | | | | [phone] | | | | | | | | +--------+ + + + + | 05/21/ | Implant | Cardiology | Daljit Singletary, | Remote Device | 2019 | Monitor | | [address] | Interrogation | | | | | [place], | (Primary Dx); | | | | | [place] [address] | Pacemaker; | | | | | [phone] | Sinoatrial node | | | | | | dysfunction (HCC) | | | | | | with symptomatic | | | | | | bradycardia | +--------+ + + + + documented as of this encounter Visit Diagnoses Not on filedocumented in this encounter"
--- OUTSIDE RECORDS SUMMARY | ~2020-04-15 | XMS | Encounter Summary ---
Demographics + + + | Address | [address] | | | [place] [address] | + + + | Home Phone | | + + + | Preferred Language | Unknown | + + + | Marital Status | | + + + | Adventist Affiliation | 1013 | + + + [...] Team Providers + +------+ + | Care X Ray Control Equipment Repairer Name | Role | Phone | + +------+ + | Kirk French MD | PCP | | + +------+ + Encounter Details +--------+ + + + + | Date | Type | Department | Care Team | Description | +--------+ + + + + | 01/18/ | Hospital | [facility] | Conversion | Diagnosis unknown | | 2017 | Encounter | CONVERSION DE[address] | Transaction, | | | | | [address] | Provider Unknown | | | | | [place], [place] | [phone] | | | | | [address] | | | | | | [phone] | | | +--------+ + + + [...] + + + +---------+ + + | [place]-3 Fatty | CAPS, one capsule by | [...] + +---------+ + + | metoprolol | take 1 tablet by | 90 | 3 | 06/22/20 | | | succinate | mouth every evening | tablet | | 16 | 7 | | (TOPROL-XL) 200 mg | | [...] [place], | | | | | | [place] [address] | | | | | | [phone] | | | | | | | | +--------+ + + + + | 05/01/ | Procedure | Cardiology | | | | 2019 | visit | | | | +--------+ + + + + | 05/01/ | Office | Cardiology | Silvia, | | | 2019 | Visit | | [address] | | | | | | [place], | | | | | | [place] [address] | | | | | | [phone] | | | | | | | | +--------+ + + + + | 05/21/ | Implant | Cardiology | Daljit Singletary, | Remote Device | | 2019 | Monitor | | [facility] | Interrogation | | | | | [place], | (Primary Dx); | | | | | [place] [address] | Pacemaker; | | | | | [phone] | Sinoatrial node | | | | | | dysfunction ([facility]) | | | | | [...] + | CT MYELOGRAPHY | Routin | 04/07/2016 | | Results for this | | LUMBAR SPINE | e | 5:38 AM | | procedure are in the | | | | PDT | | results section. | + +--------+ + + + documented in this encounter Results CT Myelography Lumbar Spine (04/07/2016 5:38 AM PDT) + + | Specimen | + + | | + + + + + | Narrative | Performed At | + + + | This is a non-reportable procedure without a radiologist report and | | | is used for image storage only | | + + + + + | Procedure Note | + + | Kalpesh Brown - 07/06/2019 12:12 AM PDT This is a non-reportable procedure | | without a radiologist report and isused for image storage only | + + documented in this encounter Visit Diagnoses + + | Diagnosis | + + | Diagnosis unknown Other unknown and unspecified cause of morbidity or mortality | + + documented in this encounter"
--- OUTSIDE RECORDS SUMMARY | ~2020-04-15 | XMS | Encounter Summary ---
Demographics + + + | Address | [address] | | | [place] [address] | + + + | Home Phone | | + + + | Preferred Language | Unknown | + + + | Marital Status | | + + + | Tenriism Affiliation | 1013 | + + + | Race | Unknown | + + + | Ethnic Group | Unknown | + + + Author + + + | Author | [facility] | | | and [place] | + + + | Organization | [facility] | | | [...] Team Providers + +------+ + | Care Airport Operations Manager Name | Role | Phone | + +------+ + | Kirk French MD | PCP | | + +------+ + Encounter Details +--------+ + + + + | Date | Type | Department | Care Team | Description | +--------+ + + + + | 11/16/ | Hospital | [facility] | Kirk French | Aneurysm (HCC) | | 2017 | Encounter | [facility] | D, MD [address] | | | | | [address] [place] | [address] | | | | | [place], [place] | [place] [address] | | | | | [address] | [phone] | | | | | [phone] | | | | | | | Juvenal Blake, | | | | | | Technologist | | +--------+ + + + + [...] + + + +---------+ + + | [place]-3 Fatty | CAPS, one capsule by | [...] + + | dicyclomine | Take 1 capsule by | | 0 | 10/20/20 | | | (BENTYL) 10 mg | mouth 4 times daily. | | | 17 | 8 | | capsule | | | | | | + + + +---------+ + + | Glucose Blood | Test up to 1 times a | | 0 | 07/13/20 | | | (BLOOD GLUCOSE TEST | day as needed ( One | | | 17 | 8 | | STRIPS) STRP | touch ) [...] take 1 tablet by | 90 | 0 | 09/07/20 | | | succinate | mouth every evening | tablet | | 17 | 8 | | (TOPROL-XL) 200 mg | | [...] [address] | | | | | | [place], | | | | | | [place] [address] | | | | | | [phone] | | | | | | | | +--------+ + + + + | 05/01/ | Procedure | Cardiology | | | | 2019 | visit | | | | +--------+ + + + + | 05/01/ | Office | Cardiology | Silvia, | | | 2019 | Visit | | [address] | | | | | | [place], | | | | | | [place] [address] | | | | | | [phone] | | | | | | | | +--------+ + + + + | 05/21/ | Implant | Cardiology | Daljit Singletary, | Remote Device | | 2020 | Monitor | | [facility] | Interrogation | | | | | [place], | (Primary Dx); | | | | | [place] [address] | Pacemaker; | | | | | [phone] | Sinoatrial node | | | | | | dysfunction ([facility]) | | | | | | with symptomatic | | | | | | bradycardia | +--------+ + + + + + +---------+--------+ + + | Name | Type | Priori | Associated Diagnoses | Order Schedule | | | | ty | | | + +---------+--------+ + + | US AAA Screening | Imaging | Routin | Aneurysm ([facility]) | 1 Occurrences | | | | e | | starting 11/16/2017 | | | | | | until 11/16/2017 | + +---------+--------+ + + documented as of this encounter Visit Diagnoses + + | Diagnosis | + + | Aneurysm (HCC) Aneurysm of unspecified site | + + documented in this encounter"
--- OUTSIDE RECORDS SUMMARY | ~2020-04-15 | XMS | Encounter Summary ---
Demographics + + + | Address | [address] | | | [place] [address] | + + + | Home Phone [...] Team Providers + +------+ + | Care District Plant Engineer Name | Role | Phone | + +------+ + | Michael Amanda DO | PCP | | + +------+ + Reason for Visit +---------+ + | Reason | Comments | +---------+ + | Results | | +---------+ + Encounter Details +--------+ + + + + | Date | Type | Department | Care Team | Description | +--------+ + + + + | 07/30/ | Telephone | [facility] | Michael Amanda, | Results | | 2013 | | [facility] [place] | DO [address] | | | | | [address] | [place] | | | | | [place] | [address] | | | | | [address] | | | | | | [phone] | | | +--------+ + + + [...] W | | | | | | [place], | | | | | | [place] [address] | | | | | | [phone] | | | | | | | | +--------+ + + + + | 05/01/ | Procedure | Cardiology | | | | 2019 | visit | | | | +--------+ + + + + | 05/01/ | Office | Cardiology | Silvia, | | | 2019 | Visit | | [address] | | | | | | [place], | | | | | | [place] [address] | | | | | | [phone] | | | | | | | | +--------+ + + + + | 05/21/ | Implant | Cardiology | Daljit Singletary, | Remote Device | 2019 | Monitor | | MD [address]is [address] | Interrogation | | | | | [place], | (Primary Dx); | | | | | [place] [address] | Pacemaker; | | | | | [phone] | Sinoatrial node | | | | | | dysfunction (HCC) | | | | | | with symptomatic | | | | | | bradycardia | +--------+ + + + + documented as of this encounter Visit Diagnoses Not on filedocumented in this encounter"
--- OUTSIDE RECORDS SUMMARY | ~2020-04-15 | XMS | Encounter Summary ---
Demographics + + + | Address | [address] | | | [place] [address] | + + + | Home Phone [...] Team Providers + +------+ + | Care Direct Sales Representative Name | Role | Phone | + +------+ + | Kirk French MD | PCP | | + +------+ + Reason for Visit +--------+ + | Reason | Comments | +--------+ + | Other | 4 week event monitor | +--------+ + Encounter Details +--------+ + + + + | Date | Type | Department | Care Team | Description | +--------+ + + + + | 08/04/ | Telephone | [facility] | Silvia, | Other (4 week event | | 2017 | | CARDIOLOGY [address] | PAR[place] [address] | monitor ) | | | | [place], | [place], | | | | | [place] [address] | [place] [address] | | | | | [phone] | [phone] | | | | | | | [...] [place], | | | | | | [place] [address] | | | | | | [phone] | | | | | | | | +--------+ + + + + | 05/01/ | Procedure | Cardiology | | | | 2020 | visit | | | | +--------+ + + + + | 05/01/ | Office | Cardiology | Silvia, | | | 2019 | Visit | | PARISA Vernon [address] | | | | | | [place], | | | | | | [place] [address] | | | | | | [phone] | | | | | | | | +--------+ + + + + | 05/21/ | Implant | Cardiology | Daljit Singletary, | Remote Device | 2019 | Monitor | | [address] | Interrogation | | | | | [place], | (Primary Dx); | | | | | [place] [address] | Pacemaker; | | | | | [phone] | Sinoatrial node | | | | | | dysfunction (HCC) | | | | | | with symptomatic | | | | | | bradycardia | +--------+ + + + + documented as of this encounter Visit Diagnoses Not on filedocumented in this encounter"
--- OUTSIDE RECORDS SUMMARY | ~2020-04-15 | XMS | Encounter Summary ---
Demographics + + + | Address | [address] | | | [place] [address] | + + + | Home Phone [...] | Author | [facility] | | | and [place] | + + + | Organization | [facility] | | [...] Team Providers + +------+ + | Care Show Horse Driver Name | Role | Phone | + [...] Description | +--------+--------+ + + + | 03/16/ | Refill | [facility] | Michael Amanda, | Medication Refill | | 2013 | | [facility]IC[facility] [place] | DO [address] | | | | | [address] | [place] | | | | | [place] | [address] | | | | | [address] | | | | | | [phone] | | | +--------+--------+ + + + [...] [address] | | | | | | [place], | | | | | | [place] [address] | | | | | | [phone] | | | | | | | | +--------+ + + + + | 05/01/ | Procedure | Cardiology | | | | 2019 | visit | | | | +--------+ + + + + | 05/01/ | Office | Cardiology | Silvia, | | | 2019 | Visit | | PARISA [address] | | | | | | [place], | | | | | | [place] [address] | | | | | | [phone] | | | | | | | | +--------+ + + + + | 05/21/ | Implant | Cardiology | Daljit Singletary, | Remote Device | | 2019 | Monitor | | [address] [facility] | Interrogation | | | | | [place], | (Primary Dx); | | | | | [place] [address] | Pacemaker; | | | | | [phone] | Sinoatrial node | | | | | | dysfunction (HCC) | | | | | | with symptomatic | | | | | | bradycardia | +--------+ + + + + documented as of this encounter Visit Diagnoses Not on filedocumented in this encounter"
--- OUTSIDE RECORDS SUMMARY | ~2020-04-15 | XMS | Encounter Summary ---
Demographics + + + | Address | [address] | | | [place] [address] | + + + | Home Phone | | + + + | Preferred Language | Unknown | + + + | Marital Status | | + + + | Advent Affiliation | 1013 | + + + | Race | Unknown | + + + | Ethnic Group | Unknown | + + + Author + + + | Author | [facility] | | | and [place] | + + + | Organization | [facility] | | | [...] Team Providers + +------+ + | Care Rotary Cutter Operator Name | Role | Phone | + +------+ + | Kirk French MD | PCP | | + +------+ + Encounter Details +--------+ + + + + | Date | Type | Department | Care Team | Description | +--------+ + + + + | 12/24/ | Orders Only | [facility] | Conversion | | | 2018 | | [facility] | Transaction, | | | | | PRIMARY CARE [address] | Provider Unknown | | | | | [address] | [phone] | | | | | [place] | | | | | | [address] | | | | | | [phone] | | | +--------+ + + + [...] W | | | | | | [place], | | | | | | [place] [address] | | | | | | [phone] | | | | | | | | +--------+ + + + + | 05/01/ | Procedure | Cardiology | | | | 2019 | visit | | | | +--------+ + + + + | 05/01/ | Office | Cardiology | [place], | | | 2019 | Visit | | [address] | | | | | | [place], | | | | | | [place] [address] | | | | | | [phone] | | | | | | | | +--------+ + + + + | 05/21/ | Implant | Cardiology | Daljit Singletary, | Remote Device | | 2020 | Monitor | | [address] [facility] | Interrogation | | | | | [place], | (Primary Dx); | | | | | [place] [address] | Pacemaker; | | | | | [phone] | Sinoatrial node | | | | [...] | + +--------+ + + + | EXTERNAL: | Routin | 12/24/2017 | | Results for this | | COLONOSCOPY | e | 12:00 AM | | procedure are in the | | | | PST | | results section. | + +--------+ + + + | COLONOSCOPY | Routin | 12/24/2017 | | Results for this | | | e | 12:00 AM | | procedure are in the | | | | PST | | results section. | + +--------+ + + + documented in this encounter Results COLONOSCOPY (12/24/2017 12:00 AM PST) + + + + + + | Component | Value | Ref Range | Performed | Pathologist | | | | | At | Signature | + + + + + + | Colonoscopy | Done - see scanned | | EXTERNAL | | | | result | | LAB | | | Impression, | | | | | | External | | | | | + + + + + + + + | Specimen | + + | | + + + + + | Narrative | Performed At | + + + | This external order was created through the [employer] Console. | EXTERNAL LAB | | Historically converted procedure from Mell Epic environment | | + + + + +---------+ + + | Performing | Address | City/State/Zipcode | Phone Number | | Organization | | | | + +---------+ + + | EXTERNAL LAB | | | | + +---------+ + + EXTERNAL: COLONOSCOPY (12/24/2017 12:00 AM PST) + + + + + + | Component | Value | Ref Range | Performed | Pathologist | | | | | At | Signature | + + + + + + | Colonoscopy | Done - see scanned | | EXTERNAL | | | | result | | LAB | | | Impression, | | | | | | External | | | | | + + + + + + + + | Specimen | + + | | + + + +---------+ + + | Performing | Address | City/State/Zipcode | Phone Number | | Organization | | | | + +---------+ + + | EXTERNAL LAB | | | | + +---------+ + + documented in this encounter Visit Diagnoses Not on filedocumented in this encounter"
--- OUTSIDE RECORDS SUMMARY | ~2020-04-15 | XMS | Encounter Summary ---
Demographics + + + | Address | [address] | | | [place] [address] | + + + | Home Phone | | + + + | Preferred Language | Unknown | + + + | Marital Status | | + + + | Yazdanism Affiliation | 1013 | + + + | Race | Unknown | + + + | Ethnic Group | Unknown | + + + Author + + + | Author | [facility] | | | and [place] | + + + | Organization | [facility] | | | [...] Team Providers + +------+ + | Care Search Engine Optimization Manager Name | Role | Phone | [...] | CARDIOLOGY [address] | [address] [place] | Interrogation | | | | [place], | [place], | (Primary Dx); | | | | [place] [address] | [place] [address] | Presence of | | | | [phone] | [phone] | permanent cardiac | | | | [...] | | | | | | [place] [address] | | | | | | [phone] | | | | | | | | +--------+ + + + + | 05/01/ | Procedure | Cardiology | | | | 2019 | visit | | | | +--------+ + + + + | 05/01/ | Office | Cardiology | [place], | | | 2019 | Visit | | [address] [address] | | | | | | [place], | | | | | | [place] [address] | | | | | | [phone] | | | | | | | | +--------+ + + + + | 05/21/ | Implant | Cardiology | Daljit Singletary, | Remote Device | 2019 | Monitor | | [address] [facility] | Interrogation | | | | | [place], | (Primary Dx); | | | | | [place] [address] | Pacemaker; | | | | | [phone] | Sinoatrial node | | | | [...] | + + + | Daljit | PACEART | | MD Gemini 10/28/2018 13:33Date of Remote Interrogation: | | | 09/30/18 Refer to Paceart documentation and remote PDF scanned into | | | [facility] for remote interrogation results. Data collected by [...]
--- OUTSIDE RECORDS SUMMARY | ~2020-04-15 | XMS | Encounter Summary ---
Demographics + + + | Address | [address] | | | [place] [address] | + + + | Home Phone [...] Team Providers + +------+ + | Care Automotive Service Management Teacher Name | Role | Phone | + +------+ + PCP | Unavailable | + +------+ + Encounter Details +--------+ + + + + | Date | Type | Department | Care Team | Description | +--------+ + + + + | 09/29/ | Hospital | [facility] | | | | 1995 | Encounter | [facility] EM[facility]GENCY | | | | | | [place] [address] | | | | | | [place] | | | | | | [address] | | | | | | [phone] | | | +--------+ + + + [...] | | | | | | [place] [address] | | | | | | [phone] | | | | | | | | +--------+ + + + + | 05/01/ | Procedure | Cardiology | | | | 2019 | visit | | | | +--------+ + + + + | 05/01/ | Office | Cardiology | [place], | | | 2019 | Visit | | [address] | | | | | | [place], | | | | | | [place] [address] | | | | | | [phone] | | | | | | | | +--------+ + + + + | 05/21/ | Implant | Cardiology | Daljit Singletary, | Remote Device | 2019 | Monitor | | [address] [place] | Interrogation | | | | | [place], | (Primary Dx); | | | | | [place] [address] | Pacemaker; | | | | | [phone] | Sinoatrial node | | | | | | dysfunction (HCC) | | | | | | with symptomatic | | | | | | bradycardia | +--------+ + + + + documented as of this encounter Visit Diagnoses Not on filedocumented in this encounter"
--- OUTSIDE RECORDS SUMMARY | ~2020-04-15 | XMS | Encounter Summary ---
Demographics + + + | Address | [address] | | | [place] [address] | + + + | Home Phone [...] + + | Author | [facility] | | | and [place] | + + + | Organization | [facility] | | | and [...] Team Providers + +------+ + | Care Rfid Specialist Name | Role | Phone | [...] | +--------+ + + + + | 06/20/ | Telephone | [facility] | Daljit Singletary, | Chest Pain | | 2018 | | CARDIOLOGY [address] | MD [address] [place] | | | | | [place], | [place], | | | | | [place] [address] | [place] [address] | | | | | [phone] | [phone] | | | | | | | [...] | | | | | | [place] [address] | | | | | | [phone] | | | | | | | | +--------+ + + + + | 05/01/ | Procedure | Cardiology | | | | 2019 | visit | | | | +--------+ + + + + | 05/01/ | Office | Cardiology | [place], | | | 2019 | Visit | | [place] [address] | | | | | | [place], | | | | | | [place] [address] | | | | | | [phone] | | | | | | | | +--------+ + + + + | 05/21/ | Implant | Cardiology | Daljit Singletary, | Remote Device | | 2019 | Monitor | | [address] [facility] | Interrogation | | | | | [place], | (Primary Dx); | | | | | [place] [address] | Pacemaker; | | | | | [phone] | Sinoatrial node | | | | | | dysfunction (HCC) | | | | | | with symptomatic | | | | | | bradycardia | +--------+ + + + + documented as of this encounter Visit Diagnoses Not on filedocumented in this encounter"
--- OUTSIDE RECORDS SUMMARY | ~2020-04-15 | XMS | Encounter Summary ---
Demographics + + + | Address | [address] | | | [place] [address] | + + + | Home Phone | | + + + | Preferred Language | Unknown | + + + | Marital Status | | + + + | Baptism Affiliation | 1013 | + + + [...] Team Providers + +------+ + | Care Laser Beam Machine Operator Name | Role | Phone | + +------+ + | Kirk French MD | PCP | | + +------+ + Encounter Details +--------+ + + + + | Date | Type | Department | Care Team | Description | +--------+ + + + + | 07/05/ | Hospital | [facility] | Conversion | Acute neck pain | | 2017 | Encounter | [facility] | Transaction, | | | | | [address] | Provider Unknown | | | | | [address] [place], [place] | [phone] | | | | | [address] | | | | | | [phone] | Apolonia Ruano | | | | | | MD Shelly [address] | | | | | | [address] | | | | | | [place], [place] | | | | | | [address] | | | | | | [phone] | | | | | | | [...] mg by mouth | | 0 | 20 | | | (BENADRYL) 25 MG | [...] + + + +---------+ + + | [place]-3 Fatty | CAPS, one capsule by | [...] | | | | | | [place] [address] | | | | | | [phone] | | | | | | | | +--------+ + + + + | 05/01/ | Procedure | Cardiology | | | | 2019 | visit | | | | +--------+ + + + + | 05/01/ | Office | Cardiology | Silvia, | | | 2019 | Visit | | PARISA Vernon [address] | | | | | | [place], | | | | | | [place] [address] | | | | | | [phone] | | | | | | | | +--------+ + + + + | 05/21/ | Implant | Cardiology | Daljit Singletary, | Remote Device | 2019 | Monitor | | [address] [facility] | Interrogation | | | | | [place], | (Primary Dx); | | | | | [place] [address] | Pacemaker; | | | | | [phone] | Sinoatrial node | | | | [...] + +--------+ + + + | XR CERVICAL SPINE 2 | Routin | 07/05/2017 | | Results for this | | OR 3 VIEWS | e | 4:30 PM | | procedure are in the | | | | PDT | | results section. | + +--------+ + + + documented in this encounter Results XR Cervical Spine 2 or 3 Views (07/05/2017 4:30 PM PDT) + + | Specimen | + + | | + + + + + | Impressions | Performed At | + + + | FINDINGS/IMPRESSION: 1. No acute fracture. Status post C5-C7 | | | spinal fusion. No prevertebral soft tissue swelling. 2. Mild (2-3 | | | mm) retrolisthesis of C3 on C4 and C4 on C5. Mild reversal of cervical | | | lordosis. 3. Moderate degenerative disc disease at C3-C4 and C4-C5 | | | decreased intervertebral disc spaces. 4. Moderate facet joint | | | osteoarthritis throughout the cervical spine. 5. Osteopenia. | | | | | + + + + + + | Narrative | Performed At | + + + | [facility] Jaimee PEACEZENAIDA XR CERVICAL SPINE LIMITED 2-3 VIEW 07/05/2017 4:30 PM | | | HISTORY: 57 years. Male. Acute neck pain. TECHNIQUE: XR | | | CERVICAL SPINE LIMITED 2-3 VIEW. 3 view(s) obtained. | | | COMPARISON: CT dated 12/23/2014 | | + + + + -----+ | Procedure Note | + -----+ | Kalpesh Brown - 07/06/2019 12:12 AM PDT [facility] GAYXR CERVICAL SPINE LIMITED | | 2-3 VIEW07/05/2017 4:30 PM HISTORY:57 years. Male. Acute neck pain. TECHNIQUE:XR | | CERVICAL SPINE LIMITED 2-3 VIEW. 3 view(s) obtained. COMPARISON:CT dated 12/23/2014 | | IMPRESSION: FINDINGS/IMPRESSION:1. No acute fracture. Status post C5-C7 spinal fusion. | | No prevertebral soft tissue swelling.2. Mild (2-3 mm) retrolisthesis of C3 on C4 and C4 | | on C5. Mild reversal of cervical lordosis.3. Moderate degenerative disc disease at | | C3-C4 and C4-C5 decreased intervertebral disc spaces.4. Moderate facet joint | | osteoarthritis throughout the cervical spine.5. Osteopenia. | | | |COMPARISON: | |CT dated 12/23/2014 | | | |IMPRESSION: | |FINDINGS/IMPRESSION: | |1. No acute fracture. Status post C5-C7 spinal fusion. No prevertebral soft tissue swellin g. | |2. Mild (2-3 mm) retrolisthesis of C3 on C4 and C4 on C5. Mild reversal of cervical lordos is. | |3. Moderate degenerative disc disease at C3-C4 and C4-C5 decreased intervertebral disc spa channing. | |4. Moderate facet joint osteoarthritis throughout the cervical spine. | |5. Osteopenia. | | | | | + -----+ documented in this encounter Visit Diagnoses + + | Diagnosis | + + | Acute neck pain Cervicalgia | + + documented in this encounter"
--- OUTSIDE RECORDS SUMMARY | ~2020-04-15 | XMS | Encounter Summary ---
Demographics + + + | Address | [address] | | | [place] [address] | + + + | Home Phone | | + + + | Preferred Language | Unknown | + + + | Marital Status | | + + + | Islam Affiliation | 1013 | + + + | Race | Unknown | + + + | Ethnic Group | Unknown | + + + Author + + + | Author | [facility] | | | and [place] | + + + | Organization | [facility] | | | [...] Team Providers + +------+ + | Care University Partnership Rep Name | Role | Phone | + [...] Description | +--------+--------+ + + + | 09/07/ | Refill | [facility] [place] | Geri Angel, | Medication Refill | | 2017 | | CARDIOLOGY [address] | LAW EXAMINER [address] | | | | | [place], | [place], [place] | | | | | [place] [address] | [address] | | | | | [phone] | | | +--------+--------+ + + + [...] W | | | | | | [place], | | | | | | [place] [address] | | | | | | [phone] | | | | | | | | +--------+ + + + + | 05/01/ | Procedure | Cardiology | | | | 2019 | visit | | | | +--------+ + + + + | 05/01/ | Office | Cardiology | Silvia, | | | 2019 | Visit | | [address] | | | | | | [place], | | | | | | [place] [address] | | | | | | [phone] | | | | | | | | +--------+ + + + + | 05/21/ | Implant | Cardiology | Daljit Singletary, | Remote Device | | 2019 | Monitor | | [facility] | Interrogation | | | | | [place], | (Primary Dx); | | | | | [place] [address] | Pacemaker; | | | | | [phone] | Sinoatrial node | | | | | | dysfunction (HCC) | | | | | | with symptomatic | | | | | | bradycardia | +--------+ + + + + documented as of this encounter Visit Diagnoses Not on filedocumented in this encounter"
--- OUTSIDE RECORDS SUMMARY | ~2020-04-15 | XMS | Encounter Summary ---
Demographics + + + | Address | [address] | | | [place] [address] | + + + | Home Phone [...] Team Providers + +------+ + | Care Java Tech Lead Name | Role | Phone | + +------+ + | Kirk French MD | PCP | | + +------+ + Encounter Details +--------+ + + + + | Date | Type | Department | Care Team | Description | +--------+ + + + + | 12/15/ | Abstract | [facility] [place] | Silvia, | | | 2017 | | CARDIOLOGY [address] | [place] [address] | | | | | [place], | [place], | | | | | [place] [address] | [place] [address] | | | | | [phone] | [phone] | | | | | | | [...] W | | | | | | [place], | | | | | | [place] [address] | | | | | | [phone] | | | | | | | | +--------+ + + + + | 05/01/ | Procedure | Cardiology | | | | 2019 | visit | | | | +--------+ + + + + | 05/01/ | Office | Cardiology | Silvia, | | | 2019 | Visit | | [address]ISA [address] | | | | | | [place], | | | | | | [place] [address] | | | | | | [phone] | | | | | | | | +--------+ + + + + | 05/21/ | Implant | Cardiology | Daljit Singletary, | Remote Device | 2019 | Monitor | | MD [address] [place] | Interrogation | | | | | [place], | (Primary Dx); | | | | | [place] [address] | Pacemaker; | | | | | [phone] | Sinoatrial node | | | | | | dysfunction (HCC) | | | | | | with symptomatic | | | | | | bradycardia | +--------+ + + + + documented as of this encounter Visit Diagnoses Not on filedocumented in this encounter"
--- OUTSIDE RECORDS SUMMARY | ~2020-04-15 | XMS | Encounter Summary ---
Demographics + + + | Address | [address] | | | [place] [address] | + + + | Home Phone | | + + + | Preferred Language | Unknown | + + + | Marital Status | | + + + | Protestant Affiliation | 1013 | + + + [...] Team Providers + +------+ + | Care Flooring Helper Name | Role | Phone | [...] | 02/15/ | Office | [facility] [place] | Silvia, | Symptomatic PVCs | | 2012 | Visit | CARDIOLOGY [address] | [address] [address] | (Primary Dx); | | | | [place], | [place], | Bradycardia; HTN | | | | [place] [address] | [place] [address] | (hypertension) | | | | [phone] | [phone] | | | | | | | [...] at which time patient was going to [place] for sterilization specialist co nsult and PVC ablation. Since [...] tablet Take 1,000 mg by mouth Daily. [place]-3 Fatty Acids (SALMON OIL-1000 PO) CAPS, one [...] ventricular arrhythmia performed by Dr. Gambino at [facility] on 01/30/2013. Patient had spontaneous [...] to go back in 3 days to [place] for an attempt of ablation under general [...] He is in a class II of [place] [employer] functional class. There is no [...] been encouraged to keep his appointment with sterilization specialist this coming to attempt ablation therapy. 4. Follow up appointment in 4-6 weeks. I, PARISA Russell, saw this patient under the direct supervision of Daljit Singletary MD Portions of this report were transcribed using voice recognition software. Every effort wa s made to ensure accuracy; however, inadvertent computerized fellmongery worker errors may be pre sent. documented in this encounter Plan of Treatment +--------+ + + + + | Date | Type | Specialty | Care Team | Description | +--------+ + + + + | 05/01/ | Appointment | Radiology | Silvia, | | | 2019 | | | PARISA [address] | | | | | | [place], | | | | | | [place] [address] | | | | | | [phone] | | | | | | | | +--------+ + + + + | 05/01/ | Procedure | Cardiology | | | | 2019 | visit | | | | +--------+ + + + + | 05/01/ | Office | Cardiology | Silvia, | | | 2019 | Visit | | [address]ISA [address] | | | | | | [place], | | | | | | [place] [address] | | | | | | [phone] | | | | | | | | +--------+ + + + + | 05/21/ | Implant | Cardiology | Daljit Singletary, | Remote Device | 2019 | Monitor | | [address] [place] | Interrogation | | | | | [place], | (Primary Dx); | | | | | [place] [address] | Pacemaker; | | | | | [phone] | Sinoatrial node | | | | [...]
--- OUTSIDE RECORDS SUMMARY | ~2020-04-15 | XMS | Encounter Summary ---
Demographics + + + | Address | [address] | | | [place] [address] | + + + | Home Phone [...] Team Providers + +------+ + | Care Information Security Associate Name | Role | Phone | + [...] + + | 01/22/ | Refill | [facility] | Kirk French | Medication Refill | | 2019 | | [facility] | MD Bre[address] | | | | | [facility] [address] | [address] | | | | | [address] | [place] [address] | | | | | [place], [place] | [phone] | | | | | [address] | | | | | | [phone] | | | +--------+--------+ + + + [...] [place], | | | | | | [place] [address] | | | | | | [phone] | | | | | | | | +--------+ + + + + | 05/01/ | Procedure | Cardiology | | | | 2019 | visit | | | | +--------+ + + + + | 05/01/ | Office | Cardiology | Silvia, | | | 2019 | Visit | | PARISA Vernon [address] | | | | | | [place], | | | | | | [place] [address] | | | | | | [phone] | | | | | | | | +--------+ + + + + | 05/21/ | Implant | Cardiology | Daljit Singletary, | Remote Device | | 2019 | Monitor | | [facility] | Interrogation | | | | | [place], | (Primary Dx); | | | | | [place] [address] | Pacemaker; | | | | | [phone] | Sinoatrial node | | | | | | dysfunction (HCC) | | | | | | with symptomatic | | | | | | bradycardia | +--------+ + + + + documented as of this encounter Visit Diagnoses Not on filedocumented in this encounter"
--- OUTSIDE RECORDS SUMMARY | ~2020-04-15 | XMS | Encounter Summary ---
Demographics + + + | Address | [address] | | | [place] [address] | + + + | Home Phone | | + + + | Preferred Language | Unknown | + + + | Marital Status | | + + + | Sabianism Affiliation | 1013 | + + + | Race | Unknown | + + + | Ethnic Group | Unknown | + + + Author + + + | Author | [facility] | | | and [place] | + + + | Organization | [facility] | | | [...] Team Providers + +------+ + | Care Pot Sander Name | Role | Phone | + [...] [address] | | | | | [place], [place] | [address] | | | | | [address] | [place] [address] | | | | | [phone] | [phone] | | | | | | | [...] W | | | | | | [place], | | | | | | [place] [address] | | | | | | [phone] | | | | | | | | +--------+ + + + + | 05/01/ | Procedure | Cardiology | | | | 2019 | visit | | | | +--------+ + + + + | 05/01/ | Office | Cardiology | Silvia, | | | 2019 | Visit | | PARISA [address] | | | | | | [place], | | | | | | [place] [address] | | | | | | [phone] | | | | | | | | +--------+ + + + + | 05/21/ | Implant | Cardiology | Daljit Singletary, | Remote Device | 2019 | Monitor | | MD [address] [place] | Interrogation | | | | | [place], | (Primary Dx); | | | | | [place] [address] | Pacemaker; | | | | | [phone] | Sinoatrial node | | | | [...] + + + + + + | Red Blood | 5.30 | 4.20 - 5.70 | EXTERNAL | | | Cells | | 10*6/uL | LAB | | | Counted | | | [...]
--- OUTSIDE RECORDS SUMMARY | ~2020-04-15 | XMS | Encounter Summary ---
Demographics + + + | Address | [address] | | | [place] [address] | + + + | Home Phone | | + + + | Preferred Language | Unknown | + + + | Marital Status | | + + + | Restorationism Affiliation | 1013 | + + + | Race | Unknown | + + + | Ethnic Group | Unknown | + + + Author + + + | Author | [facility] | | | and [place] | + + + | Organization | [facility] | | [...] Team Providers + +------+ + | Care Special Library Librarian Name | Role | Phone | + +------+ + PCP | Unavailable | + +------+ + Encounter Details +--------+ + + + + | Date | Type | Department | Care Team | Description | +--------+ + + + + | 06/12/ | [facility] | [facility] | Hunter Antunez, | | | 2007 - | Encounter | MED CTR ICU [address] | MD [address] | | | | | [place], | [place] | | | 06/15/ | | [place] [address] | [address] | | | 2007 | | [phone] | | | +--------+ + + + [...] W | | | | | | [place], | | | | | | [place] [address] | | | | | | [phone] | | | | | | | | +--------+ + + + + | 05/01/ | Procedure | Cardiology | | | | 2019 | visit | | | | +--------+ + + + + | 05/01/ | Office | Cardiology | Silvia | | | 2019 | Visit | | [address] | | | | | | [place], | | | | | | [place] [address] | | | | | | [phone] | | | | | | | | +--------+ + + + + | 05/21/ | Implant | Cardiology | Daljit Singletary, | Remote Device | 2019 | Monitor | | MD [address] [place] | Interrogation | | | | | [place], | (Primary Dx); | | | | | [place] [address] | Pacemaker; | | | | | [phone] | Sinoatrial node | | | | | | dysfunction (HCC) | | | | | | with symptomatic | | | | | | bradycardia | +--------+ + + + + documented as of this encounter Visit Diagnoses Not on filedocumented in this encounter"
--- OUTSIDE RECORDS SUMMARY | ~2020-04-15 | XMS | Encounter Summary ---
Demographics + + + | Address | [address] | | | [place] [address] | + + + | Home Phone [...] Team Providers + +------+ + | Care Meat Packer Name | Role | Phone | [...] + | 01/03/ | Office | [facility] | Silvia, | CAD (coronary artery | | 2012 | Visit | CARDIOLOGY [address] | Janeen, AIR BRUSH OPERATOR [address] | disease) (Primary | | | | [place], | [place], | Dx); Bradycardia; | | | | [place] [address] | [place] [address] | HTN (hypertension); | | | | [phone] | [phone] | Lightheadedness | | | | | [...] Instructions Patient Instructions Janeen Ramirez ARNP - 01/03/2013 3:09 PM PST1. [...] tablet Take 1,000 mg by mouth Daily. [place]-3 Fatty Acids (SALMON OIL-1000 PO) CAPS, one [...] himself t o the emergency department at [facility] in [place], [place]. EKG showed normal s inus rhythm [...] Refer patient to an electrophysiology specialist in [place] for further evaluation for P VC's ablation. I have given verbal instructions and written material for patient to read mo re about the procedure. 2. Check blood pressure and pulse twice daily for two weeks and return the log to our offic e. 3. Followup appointment after patient's appointment with medicare contact specialist/ablation. IJaneen ARNP, saw this patient under the direct supervision of Daljit Singletary MD Portions of this report were transcribed using voice recognition software. Every effort wa s made to ensure accuracy; however, inadvertent computerized human intelligence errors may be pre sent. documented in [...] | | | | | | [place] [address] | | | | | | [phone] | | | | | | | | +--------+ + + + + | 05/01/ | Procedure | Cardiology | | | | 2019 | visit | | | | +--------+ + + + + | 05/01/ | Office | Cardiology | Silvia, | | | 2019 | Visit | | [address] | | | | | | [place], | | | | | | [place] [address] | | | | | | [phone] | | | | | | | | +--------+ + + + + | 05/21/ | Implant | Cardiology | Daljit Singletary, | Remote Device | 2019 | Monitor | | [address] [place] | Interrogation | | | | | [place], | (Primary Dx); | | | | | [place] [address] | Pacemaker; | | | | | [phone] | Sinoatrial node | | | | | | dysfunction (HCC) | | | | | | with symptomatic | | | | | | bradycardia | +--------+ + + + + documented as of this encounter Visit Diagnoses + + | Diagnosis | + + | CAD (coronary artery disease) - Primary Coronary atherosclerosis of unspecified type | | of vessel, [place] or graft | + + | Bradycardia Other specified cardiac dysrhythmias | + + | HTN (hypertension) Unspecified essential hypertension | + + | Lightheadedness Dizziness and giddiness | + + documented in this encounter
--- OUTSIDE RECORDS SUMMARY | ~2020-04-15 | XMS | Encounter Summary ---
Demographics + + + | Address | [address] [place] [address] [address] | | | [place] [address] | + + + | Home Phone | | + + + | Preferred Language | Unknown | + + + | Marital Status | | + + + | Latter-Day Affiliation | Unknown | + + + | Race | White | + + + | Ethnic Group | Not or | + + + Author + + + | Author | [facility] | + + + | Organization | [facility] | + + + | Address | Unknown | + + + | Phone | Unavailable | + + + Support + + + + + | Name | Relationship | Address | Phone | + + + + + | Rachel Valencia | [address]IE[address]ER | [place] | | | | | [address] | | + + + + + Care Team Providers + +------+ + | Care Taxi Driver Name | Role | Phone | + +------+ + | Darion Holden DO | PCP | | + +------+ + Encounter Details +--------+ + + + + | Date | Type | Department | Care Team | Description | +--------+ + + + + | 02/03/ | Hospital | Cardiac | Sjh, Car Ecg Tech | | | 2010 | Encounter | Non-Invasive Testing | [address] | | | | | at [facility] | [facility] | | | | | [address] | [place] [address] | | | | | [address] | | | | | | [place], [address] [place] [address] | | | | | | [place], [place] | | | | | | [address] | | | | | | [phone] | | | +--------+ + + + [...] (ZESTRIL) 20 mg Oral | once daily. 12 | | | | | | Tablet [...] by mouth. 2 | | 0 | 02/04/20 | | | (OXYCONTIN) 20 mg | tablets two to three | | | 11 | | | Oral Tablet Extended | times daily | | | | | | Release 12 hr | | | | | | + + + +---------+ + + | oxyCODONE, | Take by mouth. 1-2 | | 0 | 02/04/20 | | | immediate release, | tablets [...] + + documented in this encounter Results 12 LEAD ECG (02/03/2011 2:01 PM PDT) [...] + + + | Please click | [facility] | | on view image for the detailed interpretation from [employer] results. | CARDIOLOGY | + + + + + + + + | Performing | Address | City/State/Zipcode | Phone Number | | Organization | | | | + + + + + | [facility] | [address] | [place], [place] | | | CARDIOLOGY | [address] | [address] | | + + + + + documented in this encounter Visit Diagnoses Not on filedocumented in this encounter"
--- OUTSIDE RECORDS SUMMARY | ~2020-04-15 | XMS | Encounter Summary ---
Demographics + + + | Address | [address] | | | [place] [address] | + + + | Home Phone [...] Team Providers + +------+ + | Care Wildlife Policy Professional Name | Role | Phone | + [...] + + | 12/09/ | Telephone | [facility] | Emmanuel Daniel MD | Appointment (EGD, | | 2017 | | GASTROENTEROLOGY | [address], [place] | colon Rescheduled to | | | | [address] [place] | [address] [place] | December 24 due to | | | | [address] [place] | [address] | illness) | | | | [address] | | | | | | [phone] | | | +--------+ + + + [...] | | | | | | [place] [address] | | | | | | [phone] | | | | | | | | +--------+ + + + + | 05/01/ | Procedure | Cardiology | | | | 2019 | visit | | | | +--------+ + + + + | 05/01/ | Office | Cardiology | Silvia, | | | 2019 | Visit | | PAR[address] | | | | | | [place], | | | | | | [place] [address] | | | | | | [phone] | | | | | | | | +--------+ + + + + | 05/21/ | Implant | Cardiology | Daljit Singletary, | Remote Device | | 2019 | Monitor | | [address] | Interrogation | | | | | [place], | (Primary Dx); | | | | | [place] [address] | Pacemaker; | | | | | [phone] | Sinoatrial node | | | | | | dysfunction (HCC) | | | | | | with symptomatic | | | | | | bradycardia | +--------+ + + + + documented as of this encounter Visit Diagnoses Not on filedocumented in this encounter"
--- OUTSIDE RECORDS SUMMARY | ~2020-04-15 | XMS | Encounter Summary ---
Demographics + + + | Address | [address] | | | [place] [address] | + + + | Home Phone [...] + + + | Author | [facility] | | | and [place] | + + + | Organization | [facility] | | [...] Team Providers + +------+ + | Care Sorting Machine Attendant Name | Role | Phone | [...] + | 01/20/ | Telephone | [facility] [place] | Silvia, | Other | | 2019 | | CARDIOLOGY [address] | [place] [address] | | | | | [place], | [place], | | | | | [place] [address] | [place] [address] | | | | | [phone] | [phone] | | | | | | | [...] | | | | | | [place] [address] | | | | | | [phone] | | | | | | | | +--------+ + + + + | 05/01/ | Procedure | Cardiology | | | | 2019 | visit | | | | +--------+ + + + + | 05/01/ | Office | Cardiology | Silvia, | | | 2019 | Visit | | [address] | | | | | | [place], | | | | | | [place] [address] | | | | | | [phone] | | | | | | | | +--------+ + + + + | 05/21/ | Implant | Cardiology | Daljit Singletary, | Remote Device | | 2019 | Monitor | | [address] [facility] | Interrogation | | | | | [address] [place], | (Primary Dx); | | | | | [place] [address] | Pacemaker; | | | | | [phone] | Sinoatrial node | | | | | | dysfunction (HCC) | | | | | | with symptomatic | | | | | | bradycardia | +--------+ + + + + documented as of this encounter Visit Diagnoses Not on filedocumented in this encounter"
--- OUTSIDE RECORDS SUMMARY | ~2020-04-15 | XMS | Encounter Summary ---
Demographics + + + | Address | [address] | | | [place] [address] | + + + | Home Phone [...] Team Providers + +------+ + | Care Coordinator Skill Training Program Name | Role | Phone | + [...] Provider Unknown | | | | | [place], [place] | [phone] | | | | | [address] | | | | | | [phone] | | | +--------+ + + + [...] + + + +---------+ + + | [place]-3 Fatty | CAPS, one capsule by | [...] | | | | | | [place] [address] | | | | | | [phone] | | | | | | | | +--------+ + + + + | 05/01/ | Procedure | Cardiology | | | | 2019 | visit | | | | +--------+ + + + + | 05/01/ | Office | Cardiology | [place], | | | 2019 | Visit | | [address] | | | | | | [place], | | | | | | [place] [address] | | | | | | [phone] | | | | | | | | +--------+ + + + + | 05/21/ | Implant | Cardiology | Daljit Singletary, | Remote Device | 2019 | Monitor | | [address] | Interrogation | | | | | [place], | (Primary Dx); | | | | | [place] [address] | Pacemaker; | | | | | [phone] | Sinoatrial node | | | | | | dysfunction ([facility]) | | | | | | with [...] ARM < 1 HOUR | Routin | 07/01/2018 | | Results for this | | | e | 5:21 PM | | procedure are in the | | | | PDT | | results section. | + +--------+ + + + documented in this encounter Results [place] C-Arm < 1 Hour (07/01/2018 5:21 PM PDT) + + | Specimen | + + | | + + + + + | Narrative | Performed At | + + + | This is a non-reportable procedure without a radiologist report and | | | is used for image storage only | | + + + + + | Procedure Note | + + | KevinKalpesh Imani - 07/05/2019 4:32 AM PDT This is a non-reportable procedure | | without a radiologist report and isused for image storage only | + + documented in this encounter Visit Diagnoses + + | Diagnosis | + + | Pain Generalized pain | + + documented in this encounter"
--- OUTSIDE RECORDS SUMMARY | ~2020-04-15 | XMS | Encounter Summary ---
Demographics + + + | Address | [address] | | | [place] [address] | + + + | Home Phone [...] Team Providers + +------+ + | Care Package Sealer Machine Name | Role | Phone | + +------+ + PCP | Unavailable | + +------+ + Encounter Details +--------+ + + + + | Date | Type | Department | Care Team | Description | +--------+ + + + + | 05/13/ | Hospital | [facility] | | | | 2007 | Encounter | MED CTR EMERGENCY | | | | | | [place] [address] | | | | | | [place] | | | | | | [address] | | | | | | [phone] | | | +--------+ + + + [...] | | | | | | [place] [address] | | | | | | [phone] | | | | | | | | +--------+ + + + + | 05/01/ | Procedure | Cardiology | | | | 2019 | visit | | | | +--------+ + + + + | 05/01/ | Office | Cardiology | [place], | | | 2019 | Visit | | [address] | | | | | | [place], | | | | | | [place] [address] | | | | | | [phone] | | | | | | | | +--------+ + + + + | 05/21/ | Implant | Cardiology | Daljit Singletary, | Remote Device | 2019 | Monitor | | [address] [place] | Interrogation | | | | | [place], | (Primary Dx); | | | | | [place] [address] | Pacemaker; | | | | | [phone] | Sinoatrial node | | | | | | dysfunction (HCC) | | | | | | with symptomatic | | | | | | bradycardia | +--------+ + + + + documented as of this encounter Visit Diagnoses Not on filedocumented in this encounter"
--- OUTSIDE RECORDS SUMMARY | ~2020-04-15 | XMS | Encounter Summary ---
Demographics + + + | Address | [address] | | | [place] [address] | + + + | Home Phone | | + + + | Preferred Language | Unknown | + + + | Marital Status | | + + + | Zoroastrianism Affiliation | 1013 | + + + | Race | Unknown | + + + | Ethnic Group | Unknown | + + + Author + + + | Author | [facility] | | | and [place] | + + + | Organization | [facility] | | [...] Team Providers + +------+ + | Care Cloth Measurer Name | Role | Phone | + +------+ + PCP | Unavailable | + +------+ + Encounter Details +--------+ + + + + | Date | Type | Department | Care Team | Description | +--------+ + + + + | 09/29/ | Hospital | [facility] | | | | 1995 | Encounter | MED CTR EMERGENCY | | | | | | [place] [address] | | | | | | [place] | | | | | | [address] | | | | | | [phone] | | | +--------+ + + + [...] | | | 2019 | | | [place] [address] | | | | | | [place], | | | | | | [place] [address] | | | | | | [phone] | | | | | | | | +--------+ + + + + | 05/01/ | Procedure | Cardiology | | | | 2019 | visit | | | | +--------+ + + + + | 05/01/ | Office | Cardiology | [place], | | | 2019 | Visit | | [address] | | | | | | [place], | | | | | | [place] [address] | | | | | | [phone] | | | | | | | | +--------+ + + + + | 05/21/ | Implant | Cardiology | Daljit Singletary, | Remote Device | 2019 | Monitor | | [address] [place] | Interrogation | | | | | [place], | (Primary Dx); | | | | | [place] [address] | Pacemaker; | | | | | [phone] | Sinoatrial node | | | | | | dysfunction (HCC) | | | | | | with symptomatic | | | | | | bradycardia | +--------+ + + + + documented as of this encounter Visit Diagnoses Not on filedocumented in this encounter"
--- OUTSIDE RECORDS SUMMARY | ~2020-04-15 | XMS | Encounter Summary ---
Demographics + + + | Address | [address] | | | [place] [address] | + + + | Home Phone [...] Team Providers + +------+ + | Care Grey Percher Name | Role | Phone | + +------+ + | Kirk French MD | PCP | | + +------+ + Encounter Details +--------+ + + + + | Date | Type | Department | Care Team | Description | +--------+ + + + + | 10/28/ | Hospital | C GENERIC IP | Conversion | Pain | | 2017 | Encounter | CONVERSION DEP [address] | Transaction, | | | | | [address] | Provider Unknown | | | | | [place], [place] | [phone] | | | | | [address] | | | | | | [phone] | | | +--------+ + + + [...] + + + +---------+ + + | [place]-3 Fatty | CAPS, one capsule by | [...] W | | | | | | [place], | | | | | | [place] [address] | | | | | | [phone] | | | | | | | | +--------+ + + + + | 05/01/ | Procedure | Cardiology | | | | 2019 | visit | | | | +--------+ + + + + | 05/01/ | Office | Cardiology | [place], | | | 2019 | Visit | | [address] | | | | | | [place], | | | | | | [place] [address] | | | | | | [phone] | | | | | | | | +--------+ + + + + | 05/21/ | Implant | Cardiology | Daljit Singletary, | Remote Device | 2019 | Monitor | | [address] [place] | Interrogation | | | | | [place], | (Primary Dx); | | | | | [place] [address] | Pacemaker; | | | | | [phone] | Sinoatrial node | | | | [...] +--------+ + + + | US ABDOMEN COMPLETE | Routin | 10/25/2017 | | Results for this | | | e | 11:53 PM | | procedure are in the | | | | PST | | results section. | + +--------+ + + + documented in this encounter Results US Abdomen Complete (10/25/2017 11:53 PM PST) + + | Specimen | + + | | + + + + + | Narrative | Performed At | + + + | This is a non-reportable procedure without a radiologist report and | | | is used for image storage only | | + + + + + | Procedure Note | + + | Kalpesh Brown Imani - 07/06/2019 12:12 AM PDT This is a non-reportable procedure | | without a radiologist report and isused for image storage only | + + documented in this encounter Visit Diagnoses + + | Diagnosis | + + | Pain Generalized pain | + + documented in this encounter"
--- OUTSIDE RECORDS SUMMARY | ~2020-04-15 | XMS | Encounter Summary ---
Demographics + + + | Address | [address] | | | [place] [address] | + + + | Home Phone [...] Team Providers + +------+ + | Care Foundation Drill Operator Helper Name | Role | Phone [...] [address] | | | | | [place], | [place], | | | | | [place] [address] | [place] [address] | | | | | [phone] | [phone] | | | | | | | [...] W | | | | | | [place], | | | | | | [place] [address] | | | | | | [phone] | | | | | | | | +--------+ + + + + | 05/01/ | Procedure | Cardiology | | | | 2019 | visit | | | | +--------+ + + + + | 05/01/ | Office | Cardiology | [place], | | | 2019 | Visit | | [address] | | | | | | [place], | | | | | | [place] [address] | | | | | | [phone] | | | | | | | | +--------+ + + + + | 05/21/ | Implant | Cardiology | Daljit Singletary, | Remote Device | 2019 | Monitor | | [place] [address] [place] | Interrogation | | | | | [place], | (Primary Dx); | | | | | [place] [address] | Pacemaker; | | | | | [phone] | Sinoatrial node | | | | [...] [address] | [place] | [phone] | | [facility] | | [address] | | | - LABORATORY | [...]
--- OUTSIDE RECORDS SUMMARY | ~2020-04-15 | XMS | Encounter Summary ---
Demographics + + + | Address | [address] | | | [place] [address] | + + + | Home Phone [...] Providers + +------+ + | Care Web Site Specialist Name | Role | Phone | + +------+ + | Kirk French MD | PCP | | + +------+ + Reason for Visit + + + | Reason | Comments | + + + | Chest Pain | | + + + | Irregular Heart Beat | | + + + | Shortness of Breath | | + + + Encounter Details +--------+ + + + + | Date | Type | Department | Care Team | Description | +--------+ + + + + | 06/02/ | Emergency | [facility] | Martell Hart | Anxiety (Primary | | 2019 | | [facility] | Sanjay Palacios MD | Dx); Palpitations | | | | CENTER [address] | [address] | | | | | [place] | [place] | | | | | [address] | [address] | | | | | [phone] | | | +--------+ + + + [...] + + + | Blood Pressure | 135/90 | 06/02/2019 8:05 PM | | | | | PDT | | + + + + + | Pulse | 73 | 06/02/2019 8:21 PM | | | | | PDT | | + + + + + | Temperature | 37.4 C (99.3 F) | 06/02/2019 6:40 PM | | | | | PDT | | + + + + + | Respiratory Rate | 16 | 06/02/2019 8:21 PM | | | | | PDT | | + + + + + | Oxygen Saturation | 98% | 06/02/2019 8:21 PM | | | | | PDT | | + + + + + | Inhaled Oxygen | - | - | | | Concentration | | | | + + + + + | Weight | 103.2 kg (227 lb 8.2 | 06/02/2019 6:40 PM | | | | oz) | PDT | | + + + + + | Height | 193 cm (6' 4") | 06/02/2019 6:40 PM | | | | | PDT | | + + + + + | Body Mass Index | 27.69 | 06/02/2019 6:40 PM | | | | | PDT [...] Discharge Instructions Instructions Martell Hart MD - 06/02/2019Return for severe worsening palpit ation shortness of breath or difficulty breathing. Please follow-up with your primary care physician. documented in this encounter Medications at Time [...] + + + +---------+ + + | [place]-3 Fatty | CAPS, one capsule by | [...] tablet | | | | 19 | | + + + +---------+ + [...] | | | | | | | [place] coronary | | | | | | | artery of [place] | | | | | | | [...] +---------+ + + | clonazePAM | Take 1 tablet by | 12 | 0 | 06/02/20 | | | (KLONOPIN) 1 mg | mouth 3 times daily | tablet | | 19 | 9 | | tablet | as needed for | | | | | | | Anxiety. | | | | | + + [...] [address] | | | | | | [place], | | | | | | [place] [address] | | | | | | [phone] | | | | | | | | +--------+ + + + + | 05/01/ | Procedure | Cardiology | | | | 2019 | visit | | | | +--------+ + + + + | 05/01/ | Office | Cardiology | Silvia, | | | 2019 | Visit | | [address] | | | | | | [place], | | | | | | [place] [address] | | | | | | [phone] | | | | | | | | +--------+ + + + + | 05/21/ | Implant | Cardiology | Daljit Singletary, | Remote Device | 2019 | Monitor | | MD [address] | Interrogation | | | | | [place], | (Primary Dx); | | | | | [place] [address] | Pacemaker; | | | | | [phone] | Sinoatrial node | | | | [...] INFORMATION | BRUNILDA | Routin | | 06/02/2019 6:31 PM | | EXCHANGE | | e | | PDT | + +------+--------+ + + documented as of this encounter Procedures + +--------+ + + + | Procedure Name | Priori | Date/Time | Associated Diagnosis | Comments | | | ty | | | | + +--------+ + + + | TROPONIN I | Routin | 06/02/2019 | | Results for this | | | e | 7:07 PM | | procedure are in the | | | | PDT | | results section. | + +--------+ + + + | PROTIME INR | STAT | 06/02/2019 | | Results for this | | | | 7:07 PM | | procedure are in the | | | | PDT | | results section. | + +--------+ + + + | CBC WITH | STAT | 06/02/2019 | | Results for this | | DIFFERENTIAL | | 7:07 PM | | procedure are in the | | | | PDT | | results section. | + +--------+ + + + | B TYPE NATRIURETIC | STAT | 06/02/2019 | | Results for this | | PEPTIDE | | 7:07 PM | | procedure are in the | | | | PDT | | results section. | + +--------+ + + + | LIPASE | STAT | 06/02/2019 | | Results for this | | | | 7:07 PM | | procedure are in the | | | | PDT | | results section. | + +--------+ + + + | COMPREHENSIVE | STAT | 06/02/2019 | | Results for this | | METABOLIC PANEL | | 7:07 PM | | procedure are in the | | | | PDT | | results section. | + +--------+ + + + | ECG 12 LEAD | STAT | 06/02/2019 | | Results for this | | | | 6:57 PM | | procedure are in the | | | | PDT | | results section. | + +--------+ + + + | XR CHEST AP PORTABLE | STAT | 06/02/2019 | | Results for this | | | | 6:55 PM | | procedure are in the | | | | PDT | | results section. | + +--------+ + + + | OXYGEN THERAPY | STAT | 06/02/2019 | | | | | | 6:40 PM | | | | | | PDT | | | + +--------+ + + + documented in this encounter Results Troponin I (06/02/2019 7:07 PM PDT) + + + + + + | Component | Value | Ref Range | Performed | Pathologist | | | | | At | Signature | + + + + + + | Troponin I | <0.01Comment: | <0.06 ng/mL | [facility] | | | | Comment:Reference | | [facility] | | | | Ranges: 0.00-0.06 = | | MEDICAL | | | | NORMAL >0.06 = | | CENTER - | | | | SUSPICIOUS FOR | | LABORATORY | | | | MYOCARDIAL DAMAGE NOTE: | | | | | | Values greater than | | | | | | 0.78 ng/mL have been | | | | | | shown to be strongly | | | | | | associated with acute | | | | | | myocardial infarction. | | | | | | [employer] | | | | | [...] [address] | [place] | [phone] | | [facility] | | [address] | | | - LABORATORY | | | | + + + + + Protime INR (06/02/2019 7:07 PM PDT) + + + + + + | Component | Value | Ref Range | Performed | Pathologist | | | | | At | Signature | + + + + + + | Prothrombin | 12.9 | 11.3 - 13.9 | [facility] | | | Time | | seconds | [facility] | | | | | | MEDICAL | | | | | | CENTER - | | | | | | LABORATORY | | + + + + + + | INR | 1.0Comment: Usual Oral | 0.9 - 1.1 | [...] + | [facility] | [address] | [place] | [phone] | | [facility] | | [address] | | | - LABORATORY | | | | + + + + + Lipase (06/02/2019 7:07 PM PDT) + + + + + + | Component | Value | Ref Range | Performed | Pathologist | | | | | At | Signature | + + + + + + | Lipase | 53Comment: New method in | 12 - 53 U/L | [facility] | | | | use as of January 18, | | [facility] | | | | 2019. Check reference | | MEDICAL | | | | range for changes.Some | | CENTER - | | | | analytes show | | LABORATORY | | | | significant variation | | | | | | from the previous | | | | | | method.It may be | | | | | | necessary to set a new | | | | | | baseline for this | | | | | | analyte. | | | | + + + + + + + + | Specimen | + + | Blood | + + + + + + + | Performing | Address | City/State/Zipcode | Phone Number | | Organization | | | | + + + + + | [facility] | [address] | [place] | [phone] | | [facility] | | [address] | | | - LABORATORY | | | | + + + + + Comprehensive Metabolic Panel (06/02/2019 7:07 PM PDT) + + + + + [...] + + + + | Cl | 106 | 98 - 107 mmol/L | [facility] | | | | | | [facility] | | | | | | MEDICAL | | | | | | CENTER - | | | | | | LABORATORY | | + + + + + + | CO2 | 25 | 20 - 31 mmol/L | [facility] | | | | | | [facility] | | | | | | MEDICAL | | | | | | CENTER - | | | | | | LABORATORY | | + + + + + + | Anion Gap | 8 | 3 - 16 mmol/L | [facility] | | | | | | [facility] | | | | | | MEDICAL | | | | | | CENTER - | | | | | | LABORATORY | | + + + + + + | Glucose | 94 | 60 - 106 mg/dL | [facility] | | | | | | [facility] | | | | | | MEDICAL | | | | | | CENTER - | | | | | | LABORATORY | | + + + + + + | BUN | 15 | 9 - 23 mg/dL | [facility] | | | | | | [facility] | | | | | | MEDICAL | | | | | | CENTER - | | | | | | LABORATORY | | + + + + + + | Creatinine | 0.92 | 0.70 - 1.30 | [facility] | | | | | mg/dL | [facility] | | | | | | MEDICAL | | | | | | CENTER - | | | | | | LABORATORY | | + + + + + + | eGFR if not | >60Comment: GLOMERULAR | >=60 | [facility] | | | | FILTRATION | mL/min/1.73m2 | [facility] | | | CZECH | RATE,ESTIMATED | | MEDICAL | | | | mL/min/1.09q1Uuch than | | CENTER - | | [...] + + | Calcium | 9.6 | 8.7 - 10.4 | [facility] | | | | | mg/dL | [facility] | | | | | | MEDICAL | | | | | | CENTER - | | | | | | LABORATORY | | + + + + + + | Albumin | 4.7 | 3.2 - 4.8 g/dL | [facility] [...] + + + + | Total | 7.0 | 5.7 - 8.2 g/dL | [facility] | | | Protein | | | [facility] | | | | | | MEDICAL | | | | | | CENTER - | | | | | | LABORATORY | | + + + + + + | AST | 35 (H) | 0 - 34 U/L | [facility] [...] + + + + | Alkaline | 76 | 46 - 116 U/L | [facility] | | | Phosphatase | | | [facility] | | | | | | MEDICAL | | | | | | CENTER - | | | | | | LABORATORY | | + + + + + + | Globulin | 2.3 | 2.1 - 3.8 g/dL | [facility] [...] + + + + | BUN/Creatin | 16.3 | | [facility] | | | ine [...] ST. | [address] | [place], [place] | [phone] | | [facility] | | [address] | | | - LABORATORY | | | | + + + + + CBC with Differential (06/02/2019 7:07 PM PDT) + +-------+ + + + | Component | Value | Ref Range | Performed | Pathologist | | | | | At | Signature | + +-------+ + + + | WBC | 6.3 | 4.0 - 11.0 K/uL | [facility] [...] +-------+ + + + | Hemoglobin | 16.3 | 13.5 - 18.0 | [facility] | | | | | g/dL | [facility] | | | | | | MEDICAL | | | | | | CENTER - | | | | | | LABORATORY | | + +-------+ + + + | Hematocrit | 46.4 | 40.0 - 51.0 % | [facility] | | | | | | [facility] | | | | | | MEDICAL | | | | | | CENTER - | | | | | | LABORATORY | | + +-------+ + + + | MCV | 97.5 | 83.0 - 101.0 fL | [facility] [...] +-------+ + + + | RDW-CV | 12.8 | <15.0 % | [facility] | | | | | | [facility] | | | | | | MEDICAL | | | | | | CENTER - | | | | | | LABORATORY | | + +-------+ + + + | RDW-SD | 45.8 | 35.1 - 46.3 fL | [facility] | | | | | | [facility] | | | | | | MEDICAL | | | | | | CENTER - | | | | | | LABORATORY | | + +-------+ + + + | Platelet | 169 | 140 - 440 K/uL | [facility] | | | Count | | | [facility] | | | | | | MEDICAL | | | | | | CENTER - | | | | | | LABORATORY | | + +-------+ + + + | MPV | 11.5 | 6.5 - 12.4 fL | [facility] | | | | | | [facility] | | | | | | MEDICAL | | | | | | CENTER - | | | | | | LABORATORY | | + +-------+ + + + | % | 65.2 | 45.0 - 82.0 % | [facility] | | | Neutrophils | | | [facility] | | | | | | MEDICAL | | | | | | CENTER - | | | | | | LABORATORY | | + +-------+ + + + | % | 24.4 | 20.0 - 45.0 % | [facility] | | | Lymphocytes | | | [facility] | | | | | | MEDICAL | | | | | | CENTER - | | | | | | LABORATORY | | + +-------+ + + + | % Monocytes | 8.9 | 4.0 - 12.0 % | [facility] | | | | | | [facility] | | | | | | MEDICAL | | | | | | CENTER - | | | | | | LABORATORY | | + +-------+ + + + | % | 0.8 | 0.0 - 5.0 % | [facility] | | | Eosinophils | | | [facility] | | | | | | MEDICAL | | | | | | CENTER - | | | | | | LABORATORY | | + +-------+ + + + | % Basophils | 0.5 | 0.0 - 1.0 % | [facility] [...] | | Granulocyte | | | [facility] | | | s | | | MEDICAL | | | | | | CENTER - | | | | | | LABORATORY | | + +-------+ + + + | Absolute | 4.09 | 1.80 - 8.50 | [facility] | | | Neutrophils | | K/uL | [facility] | | | | | | MEDICAL | | | | | | CENTER - | | | | | | LABORATORY | | + +-------+ + + + | Absolute | 1.53 | 0.60 - 3.20 | [facility] | | | Lymphocytes | | K/uL | [facility] | | | | | | MEDICAL | | | | | | CENTER - | | | | | | LABORATORY | | + +-------+ + + + | Absolute | 0.56 | 0.00 - 1.00 | [facility] | | | Monocytes | | K/uL | [facility] | | | | | | MEDICAL | | | | | | CENTER - | | | | | | LABORATORY | | + +-------+ + + + | Absolute | 0.05 | 0.00 - 0.40 | [facility] | | | Eosinophils | | K/uL | [facility] | | | | | | MEDICAL | | | | | | CENTER - | | | | | | LABORATORY | | + +-------+ + + + | Absolute | 0.03 | 0.00 - 0.10 | [facility] | [...] | | | | | WBCs | [facility] | | | | | | MEDICAL | | | | | | CENTER - | | | | | | LABORATORY | | + +-------+ + + + | Absolute | 0.00 | 0.00 - 0.01 | [facility] | | | nRBC | | K/uL [...] [address] | [place] | [phone] | | [facility] | | [address] | | | - LABORATORY | | | | + + + + + B Type Natriuretic Peptide (06/02/2019 7:07 PM PDT) + +-------+ + + + | Component | Value | Ref Range | Performed | Pathologist | | | | | At | Signature | + +-------+ + + + | BNP | 48 | <100 pg/mL | [facility] | | [...] [address] | [place] | [phone] | | [facility] | | [address] | | | - LABORATORY | | | | + + + + + ECG 12 lead (06/02/2019 6:57 PM PDT) + + + + + + | Component | Value | Ref Range | Performed | Pathologist | | | | | At | Signature | + + + + + + | VENTRICULAR | 73 | BPM | [facility] | | | RATE EKG | | | | | + + + + + + | ATRIAL RATE | 73 | BPM | [facility] | | [...] + + + + | Q-T | 438 | ms | [facility] | | | INTERVAL | | | | | | (CORRECTED) | | | | | + + + + + + | P WAVE AXIS | -2 | degrees | [facility] | | + + + + + + | QRS AXIS | 12 | degrees | [facility] | | + + + + + + | T AXIS | 1 | degrees | [facility] | | + + + + + + | INTERPRETAT | Atrial-paced rhythm with | | [facility] | | | ION TEXT | prolonged AV | | | | | | conductionNonspecific T | | | | | | wave abnormality | | | | | | Inferior leadsWhen | | | | | | compared with ECG of | | | | | | 02-JAN-2019 | | | | | | 20:35,Nonspecific T wave | | | | | | abnormality Inferior | | | | | | leads is now | | | | | | presentConfirmed by | | | | | | ANGELA MARADIAGA MD ([id number]) | | | | | | on 06/03/2019 7:02:17 AM | | | | + + [...] | | | + +---------+ + + XR Chest AP Portable (06/02/2019 6:55 PM PDT) + + | Specimen | + + | | + + + + + | Narrative | Performed At | + + + | EXAM: XR CHEST AP PORTABLE dated 06/02/2019 6:54 PM HISTORY: | [facility] | | dyspnea Comparison: 01/02/2019 TECHNIQUE: A single portable | | | view of the chest. FINDINGS: The lungs are symmetrically | | | aerated. They are clear. There are no large pleural effusions. | | | There is no pneumothorax. The cardiac and mediastinal contours | | | are not enlarged. Stable atrial and ventricular leads from an | | | implanted device on the left chest. No acute osseous abnormalities. | | | Partial visualization of fusion changes in the cervicothoracic | | | junction. IMPRESSION - No radiographic evidence for acute | | | disease in the chest. Dictated and Signed by: Emmanuel Gibbons MD | | | Electronically signed: 06/02/2019 8:05 PM | | + + + + + | Procedure Note | + + | Kevin, Rad Results In - 06/02/2019 8:08 PM PDT EXAM: XR CHEST AP PORTABLE dated | | 06/02/2019 6:54 PMHISTORY: dyspneaComparison: 01/02/2019TECHNIQUE: A single portable view | | of the chest.FINDINGS:The lungs are symmetrically aerated. They are clear. There are | | no largepleural effusions. There is no pneumothorax. The cardiac and | | mediastinalcontours are not enlarged. Stable atrial and ventricular leads from | | animplanted device on the left chest. No acute osseous abnormalities. | | Partialvisualization of fusion changes in the cervicothoracic junction.IMPRESSION -No | | radiographic evidence for acute disease in the chest.Dictated and Signed by: Emmanuel Hunter | | MD Edwige Electronically signed: 06/02/2019 8:05 PM | | | |The lungs are symmetrically aerated. They are clear. There are no large | |pleural effusions. There is no pneumothorax. The cardiac and mediastinal | |contours are not enlarged. Stable atrial and ventricular leads from an | |implanted device on the left chest. No acute osseous abnormalities. Partial | |visualization of fusion changes in the cervicothoracic junction. | | | |IMPRESSION - | | | |No radiographic evidence for acute disease in the chest. | | | |Dictated and Signed by: Emmanuel Gibbons MD | | Electronically signed: 06/02/2019 8:05 PM | + + + +---------+ + + | Performing | Address | City/State/Zipcode | Phone Number | | Organization | | | | + +---------+ + + | [facility] | | | | + +---------+ + + documented in this encounter Visit Diagnoses + + | Diagnosis | + + | Anxiety - Primary Anxiety state, unspecified | + + | Palpitations | + + documented in this encounter Administered Medications + +--------+ +-------+------+------+ | Medication Order | MAR | Action | Dose | Rate | Site | | | Action | Date | | | | + +--------+ +-------+------+------+ | albuterol-ipratropium 2.5-0.5 | Given | 06/02/20 | 3 mLs | | | | mg/3 mL nebulizer solution 3 mL | | 19 8:02 | | | | | 3 mL, Nebulization, RT Once, Fri | | PM PDT | | | | | 06/02/19 at 2000, For 1 dose | | | | | | + +--------+ +-------+------+------+ +---+---+ | | | +---+---+ + +-------+ +--------+---+---+ | aspirin chewable tablet 324 mg | Given | 06/02/20 | 324 mg | | | | 324 mg, Oral, ONCE, 06/02/19 | | 19 6:49 | | | | | at 1845, For 1 dose, Unless given | | PM PDT | | | | | prior to arrival, | | | | | | + +-------+ +--------+---+---+ +---+---+ | | | +---+---+ + + + +------+---+---+ | LORazepam (ATIVAN) 1 mg tablet | Dispense | 06/02/20 | 1 mg | | | | (ER Prepack) 1 mg 1 mg, Oral, | to Home | 19 8:36 | | | | | EVERY 8 HOURS PRN, Anxiety, | | PM PDT | | | | | Starting 06/02/19 at 2030, | | | | | | | Patient Address: [address] [place] [address] | | | | | | | [place] [address], | | | | | | + + + +------+---+---+ +---+---+ | | | +---+---+ documented in this encounter
--- OUTSIDE RECORDS SUMMARY | ~2020-04-15 | XMS | Encounter Summary ---
Demographics + + + | Address | [address] | | | [place] [address] | + + + | Home Phone | | + + + | Preferred Language | Unknown | + + + | Marital Status | | + + + | Shinto Affiliation | 1013 | + + + | Race | Unknown | + + + | Ethnic Group | Unknown | + + + Author + + + | Author | [facility] | | | and [place] | + + + | Organization | [facility] [...] + +------+ + | Care Director Of Analytics Name | Role | Phone | + +------+ + PCP | Unavailable | + +------+ + Encounter Details +--------+ + + + + | Date | Type | Department | Care Team | Description | +--------+ + + + + | 10/09/ | [facility] | [facility] | Jonathan, | | | 2008 | Encounter | MED CTR EMERG[facility]Y | Martell Cr MD [address] | | | | | CENTER [address] | [place] | | | | | [place] | [place] [address] | | | | | [address] | [phone] | | | | | [phone] | | | +--------+ + + + [...] W | | | | | | [place], | | | | | | [place] [address] | | | | | | [phone] | | | | | | | | +--------+ + + + + | 05/01/ | Procedure | Cardiology | | | | 2019 | visit | | | | +--------+ + + + + | 05/01/ | Office | Cardiology | [place]via | | | 2019 | Visit | | [address] | | | | | | [place], | | | | | | [place] [address] | | | | | | [phone] | | | | | | | | +--------+ + + + + | 05/21/ | Implant | Cardiology | Daljit Singletary, | Remote Device | 2019 | Monitor | | MD [address] | Interrogation | | | | | [place], | (Primary Dx); | | | | | [place] [address] | Pacemaker; | | | | | [phone] | Sinoatrial node | | | | | | dysfunction (HCC) | | | | | | with symptomatic | | | | | | bradycardia | +--------+ + + + + documented as of this encounter Visit Diagnoses Not on filedocumented in this encounter"
--- OUTSIDE RECORDS SUMMARY | ~2020-04-15 | XMS | Encounter Summary ---
Demographics + + + | Address | [address] | | | [place] [address] | + + + | Home Phone [...] Providers + +------+ + | Care Animal Pathology Teacher Name | Role | Phone | + +------+ + | Kirk French MD | PCP | | + +------+ + Encounter Details +--------+ + + + + | Date | Type | Department | Care Team | Description | +--------+ + + + + | 01/18/ | Hospital | [facility] | Conversion | Diagnosis unknown | | 2017 | Encounter | CONVERSION [address] | Transaction, | | | | | [address] | Provider Unknown | | | | | [place], [place] | [phone] | | | | | [address] | | | | | | [phone] | | | +--------+ + + + [...] + + + +---------+ + + | [place]-3 Fatty | CAPS, one capsule by | [...] | | | | | | [place] [address] | | | | | | [phone] | | | | | | | | +--------+ + + + + | 05/01/ | Procedure | Cardiology | | | | 2019 | visit | | | | +--------+ + + + + | 05/01/ | Office | Cardiology | [place], | | | 2019 | Visit | | [address] | | | | | | [place], | | | | | | [place] [address] | | | | | | [phone] | | | | | | | | +--------+ + + + + | 05/21/ | Implant | Cardiology | Daljit Singletary, | Remote Device | | 2019 | Monitor | | MD [facility] | Interrogation | | | | | [place], | (Primary Dx); | | | | | [place] [address] | Pacemaker; | | | | | [phone] | Sinoatrial node | | | | | | dysfunction ([facility]) | | | | | [...]
--- OUTSIDE RECORDS SUMMARY | ~2020-04-15 | XMS | Encounter Summary ---
Demographics + + + | Address | [address] | | | [place] [address] | + + + | Home Phone [...] Team Providers + +------+ + | Care Storeroom Attendant Name | Role | Phone | [...] Eva ROUSE | | | | | [place], [place] | [address] | | | | | [address] | [place] [address] | | | | | [phone] | [phone] | | | | | | | [...] W | | | | | | [place], | | | | | | [place] [address] | | | | | | [phone] | | | | | | | | +--------+ + + + + | 05/01/ | Procedure | Cardiology | | | | 2019 | visit | | | | +--------+ + + + + | 05/01/ | Office | Cardiology | Silvia, | | | 2019 | Visit | | [address] | | | | | | [place], | | | | | | [place] [address] | | | | | | [phone] | | | | | | | | +--------+ + + + + | 05/21/ | Implant | Cardiology | Daljit Singletary, | Remote Device | 2019 | Monitor | | MD [address] [place] | Interrogation | | | | | [place], | (Primary Dx); | | | | | [place] [id number] | Pacemaker; | | | | | [phone] | Sinoatrial node | | | | [...]
--- OUTSIDE RECORDS SUMMARY | ~2020-04-15 | XMS | Clinical Summary ---
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 Family Medicine | Kirk French | Medication Refill | | 2019 | | | MD Brea | | +--------+ + + + + | 01/21/ | Telephone | Family Medicine | Kirk French | Other (wanted to let | 2019 | | | MD Brea | us know the [facility] | | | | | | Apolonia's cancelled his | | | | | | appointment for a | | | | | | colonoscopy) | +--------+ + + + + | 01/21/ | Hospital | | Darin Gandhi | Rectal bleeding; | | 2019 | Encounter | | MD Jacek | Diarrhea, | | | | | | unspecified type; | | | | | | Unintentional weight | | | | | | loss; Opioid type | | | | | | dependence, | | | | | | continuous (HCC); | | | | | | Allergy to opioid | | | | | | analgesic | +--------+ + + + + | 01/20/ | Anesthesia | | Jarett Barakat | | 2019 | Event | | MD Damien | | +--------+ + + + + from Last 3 Months Immunizations + + + + | Name | Administration Dates | Next Due | + + + + | HEP A, 2 DOSE | 06/24/2015, 04/27/2006, 06/26/2005 | | | (ADULT) | | | + + + + | INFLUENZA PF | 07/23/2016, 06/24/2015 | | | QUAD(PED/ADOL/ADULT) | | | | ,PSKT or VIAL | | | + + + + | INFLUENZA TRIV | 09/10/2009 | | | W/PRES(PED/ADOL/ADUL | | | | T),MULTIDOSE | | | + + + + | IPV, 4 DOSE | 06/24/2015 | | | (PED/ADULT) | | | + + + + | TD PF (2 LF TETANUS) | 05/16/2002 | | | (ADOL/ADULT) | | | + + + + | TDAP, (ADOL/ADULT) | 08/17/2011 | | + + + + | TYPHOID, VICPS | 06/24/2015, 06/26/2005 | | + + + + | ZOSTER, 1 DOSE | 06/24/2015 | | | (ZOSTAVAX) | | | + + + + Family History + + +------+ + | Medical History | Relation | Name | Comments | + + +------+ + | Cancer | Father | | colon, prostate | + + +------+ + | Heart attack | Father | | | + + +------+ + | Heart disease | Father | | | + + +------+ + | Hypertension | Father | | | + + +------+ + | Stroke | Father | | | + + +------+ + | Heart disease | Mother | | | + + +------+ + | Stroke | Mother | | | + + +------+ + + +------+ + + | Relation | Name | Status | Comments | + +------+ + + | Brother | | Alive | | + +------+ + + | Father | | Alive | Unknown health | + +------+ + + | Mother | | | DE | | | | (Age | | | | | 62) | | + +------+ + + | Sister | | Alive | | + +------+ + + | Sister | | Alive | | + +------+ + + | Sister | | Alive | | + +------+ + + | Sister | | Alive | | + +------+ + + Social History + +--------+ +--------+ [...] recent travel history available. | + + Last Filed Vital Signs + + + [...] | | + + + + + Plan of Treatment +--------+ + + + + | Date | Type | Specialty | Care Team | Description | +--------+ + + + + | 05/01/ | Appointment | Radiology | Silvia, | | | 2019 | | | [address] | | | | | | [place], | | | | | | [place] [address] | | | | | | [phone] | | | | | | | | +--------+ + + + + | 05/01/ | Procedure | Cardiology | | | | 2019 | visit | | | | +--------+ + + + + | 05/01/ | Office | Cardiology | Silvia, | | | 2019 | Visit | | [address] | | | | | | [place], | | | | | | [place] [address] | | | | | | [phone] | | | | | | | | +--------+ + + + + | 05/21/ | Implant | Cardiology | Daljit Singletary, | Remote Device | 2019 | Monitor | | MD [facility] [place] [place] | Interrogation | | | | | [place], | (Primary Dx); | | | | | [place] [address] | Pacemaker; | | | | | [phone] | Sinoatrial node | | | | | | dysfunction (HCC) | | | | | | with symptomatic | | | | | | bradycardia | +--------+ + + + + + + + + + | Health Maintenance | Due Date | Last Done | Comments | + + + + + | Hepatitis C | | | | | Screening | 9 | | | + + + + + | Vaccine: | | | | | Pneumococcal 19-64 | 5 | | | | (1 of 1 - PPSV23) | | | | + + + + + | Adult Annual | | 07/25/2014, 07/12/2013 | | | Wellness Visit | 5 | | | + + + + + | Vaccine: Zoster (2 | | 06/24/2015 | | | of 3) | 5 | | | + + + + + | Vaccine: Influenza | | 07/23/2016, 06/24/2015, | | | (Season Ended) | 0 | 09/10/2009 | | + + + + + | Vaccine: | | 08/17/2011, 05/16/2002 | | | Dtap/Tdap/Td (2 - | 1 | | | | Td) | | | | + + + + + | Colorectal Cancer | | 01/05/2019, 01/05/2019, | | | Screening | 9 | 12/24/2017, Additional history | | | (Colonoscopy) | | exists | | + + + + + Implants + +-------+--------+ +--------+--------+--------+ | Implanted | Type | Area | Manufacture | Device | Shelf | Model | | | | | r | | Expira | / | | | | | | Identi | tion | Serial | | | | | | fier | Date | / Lot | + +-------+--------+ +--------+--------+--------+ | Stent Uret W/Pstnr Frm 6 | Stent | Left: | COOK | | 09/27/ | [id number] | | 32 - [id number]: | | Ureter | [employer] | | 2020 | / | | Qty: 1 on 04/13/2019 by | | | - [place] | | | /[id number] | | Matthew Uriarte MD at | | | | | | 57 | | [facility] | | | | | | | [facility] | | | | | | | + +-------+--------+ +--------+--------+--------+ Procedures + +--------+ + + + | Procedure Name | Priori | Date/Time | Associated Diagnosis | Comments | | | ty | | | | + +--------+ + + + | DEVICE | Routin | 02/20/2020 | Remote Device | Results for this [...] | + +--------+ + + + | LABS - EXTERNAL SCAN | | 01/20/2020 | | Results for this | | | | 12:00 AM | | procedure are in the | | | | PST | | results section. | + +--------+ + + + from Last 3 Months Results Device Interrogation - Remote (02/20/2020 11:59 PM PDT) + + + | Narrative | Performed At | + + + | Daljit | [facility] | | MD Gemini 01/15/2020 11:53 AMDate of Remote Interrogation: | | | 12/31/2019 Refer to [facility] documentation and remote PDF scanned into | | | [facility] for remote interrogation results. Data collected by Shabana Robledo | | | MONROE Lama Presenting rhythm: atrial sensed ventricular sensed with rat | | | at 96-100 beats. 2 mode switch episodes accounting for <0.1% of the | | | time.No episodes. 1,329 PVC singles 189.9 PVC singles/month8 | | | PVC runs Histogram good. Battery longevity 13 | | | months.Apparent normal and stable device function.Device interrogation | | | due in office in 08/2019.Patient notified via voicemail. | | |No episodes. | | |1,329 PVC singles 189.9 PVC singles/month | | |8 PVC runs | | |Histogram good. Battery longevity 13 months. | | |Apparent normal and stable device function. | | |Device interrogation due in office in 08/2019. | | |Patient notified via voicemail. | | | | | | | | + + + + +---------+ + + | Performing | Address | City/State/Zipcode | Phone Number | | Organization | | | | + +---------+ + + | [facility] | | | | + +---------+ + + LABS - EXTERNAL SCAN (01/20/2020 12:00 AM PST) + + + | Narrative | Performed At | + + + | Ordered by an | | | unspecified provider. | | + + + from Last 3 Months Insurance + +--------+ +--------+ +---------+--------+ | Payer | Benefi | Subscriber | Effect | Phone | Address | Type | | | t Plan | ID | rudolph | | | | | | / | | Dates | | | | | | Group | | | | | | + +--------+ +--------+ +---------+--------+ | MEDICARE | MEDICA | [id number] | 01/21/20 | [phone] | | Medica | | | RE | | 01-Pre | 5 | | re | | | PART A | | sent | | | | | | AND B | | | | | | + +--------+ +--------+ +---------+--------+ | MEDICARE | MEDICA | [id number] | 01/21/20 | [phone] | | Medica | | | RE | | 01-Pre | 5 | | re | | | PART A | | sent | | | | | | AND B | | | | | | + +--------+ +--------+ +---------+--------+ | AARP | AARP | [id number] | | [phone] | | Indemn | | | MDCR | | 016-Pr | 0 | | ity | | | SUPPL | | esent | | | | + +--------+ +--------+ +---------+--------+ | AARP | AARP | [id number] | 11/22/19 | [phone] | | Indemn | | | MDCR | | 19-Pre | 0 | | ity | | | SUPPL | | sent | | | | + +--------+ +--------+ +---------+--------+ + +--------+ +--------+ + + | Guarantor Name | Accoun | Relation to | Date | Phone | Billing Address | | | t Type | Patient | of | | | | | | | | | | + +--------+ +--------+ + + | oMe Sanchez | Person | Self | [birth year] | [address] | | Kirk | cristo/Per | | 1959 | [phone] | [address] [place] | | | [place] | | | 8 (Home) | [address] | + +--------+ +--------+ + + | Moe Sanchez | Person | Self | [birth year] | [address] | | [place] | al/Fam | | 1959 | [phone] | [address] [place] | | | [place] | | | 8 (Home) | [address] | + +--------+ +--------+ + + | Moe Sanchez | Third | Self | [birth year] | [address] | | [place] | [employer] Party | | 1960 | [phone] | [address] [place] | | | [place] | | | [address] ([place]) | [id number] | | | ity | | | | | + +--------+ +--------+ + + Advance Directives + + + + + | Type | Date Recorded | Patient | Explanation | | | | 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 | | + + + + + | Power of | | | | | Mortgage Branch Manager | | | | + + + + + | Advance | 09/21/2014 | | ADVANCED DIRECTIVE | | Directive | 3:47 PM | | | + + + + + | Advance | 06/02/2019 6:32 | | | | Directive | PM | | | + + + + + | Advance | 07/05/2019 12:11 | | ADVANCE DIRECTIVE | | Directive | PM | | | + + + + + + + + + + | Code Status | Date | Date | Comments | | | Activated | Inactivated | | + + + + + | Full Code | 04/13/2019 | 04/13/2019 | | | | 10:47 AM | 6:22 PM | | + + + + + + + + +---+ | | | | | + + + +---+ | Full Code | 03/18/2015 | 03/20/2015 | | | | 9:37 PM | 3:36 PM | | + + + +---+
--- OUTSIDE RECORDS SUMMARY | ~2020-04-15 | XMS | Encounter Summary ---
Demographics + + + | Address | [address] | | | [place] [address] | + + + | Home Phone | | + + + | Preferred Language | Unknown | + + + | Marital Status | | + + + | Restorationism Affiliation | 1013 | + + + | Race | Unknown | + + + | Ethnic Group | Unknown | + + + Author + + + | Author | [facility] | | | and [place] | + + + | Organization | [facility] | | [...] Providers + +------+ + | Care Business Systems Administrator Name | Role | Phone | + +------+ + | Michael Amanda DO | PCP | | + +------+ + Reason for Visit + + + | Reason | Comments | + + + | Eye Problem | | + + + Encounter Details +--------+ + + + + | Date | Type | Department | Care Team | Description | +--------+ + + + + | 06/22/ | Telephone | [facility] | Vasiliy Michael Kelsey, | Eye Problem | | 2012 | | [facility]IC[facility] [place] | DO [address] | | | | | [address] | [place] | | | | | [place] | [address] | | | | | [address] | | | | | | [phone] | | | +--------+ + + + [...] W | | | | | | [place], | | | | | | [place] [address] | | | | | | [phone] | | | | | | | | +--------+ + + + + | 05/01/ | Procedure | Cardiology | | | | 2019 | visit | | | | +--------+ + + + + | 05/01/ | Office | Cardiology | Silvia, | | 2019 | Visit | | [address] | | | | | | [place], | | | | | | [place] [address] | | | | | | [phone] | | | | | | | | +--------+ + + + + | 05/21/ | Implant | Cardiology | Daljit Singletary, | Remote Device | | 2019 | Monitor | | [address] [facility] | Interrogation | | | | | [address], | (Primary Dx); | | | | | [place] [address] | Pacemaker; | | | | | [phone] | Sinoatrial node | | | | | | dysfunction (HCC) | | | | | | with symptomatic | | | | | | bradycardia | +--------+ + + + + documented as of this encounter Visit Diagnoses Not on filedocumented in this encounter"
--- OUTSIDE RECORDS SUMMARY | ~2020-04-15 | XMS | Encounter Summary ---
Demographics + + + | Address | [address] | | | [place] [address] | + + + | Home Phone [...] Team Providers + +------+ + | Care Piler Name | Role | Phone | + [...] 2019 | | GASTROENTEROLOGY | [address] [place] | | | | | [address] [place] | [address] [place], [place] | | | | | [address] [place], [place] | [address] | | | | | [address] | | | | | | [phone] | | | +--------+ + + + [...] | | | | | | [place] [address] | | | | | | [phone] | | | | | | | | +--------+ + + + + | 05/01/ | Procedure | Cardiology | | | | 2020 | visit | | | | +--------+ + + + + | 06/10/ | Office | Cardiology | Silvia, | | | 2019 | Visit | | [address] | | | | | | [place], | | | | | | [place] [address] | | | | | | [phone] | | | | | | | | +--------+ + + + + | 05/21/ | Implant | Cardiology | Daljit Singletary, | Remote Device | 2019 | Monitor | | [address] | Interrogation | | | | | [place], | (Primary Dx); | | | | | [place] [address] | Pacemaker; | | | | | [phone] | Sinoatrial node | | | | | | dysfunction (HCC) | | | | | | with symptomatic | | | | | | bradycardia | +--------+ + + + + documented as of this encounter Visit Diagnoses Not on filedocumented in this encounter"
--- OUTSIDE RECORDS SUMMARY | ~2020-04-15 | XMS | Encounter Summary ---
Demographics + + + | Address | [address] | | | [place] [address] | + + + | Home Phone [...] Team Providers + +------+ + | Care Firer Tunnel Kiln Name | Role | Phone | + [...] [place] | | | | | | [address] | | | | | | [phone] | | | +--------+ + + + [...] W | | | | | | [place], | | | | | | [place] [address] | | | | | | [phone] | | | | | | | | +--------+ + + + + | 05/01/ | Procedure | Cardiology | | | | 2019 | visit | | | | +--------+ + + + + | 05/01/ | Office | Cardiology | Silvia, | | | 2019 | Visit | | [address] | | | | | | [place], | | | | | | [place] [address] | | | | | | [phone] | | | | | | | | +--------+ + + + + | 05/21/ | Implant | Cardiology | Daljit Singletary, | Remote Device | | 2019 | Monitor | | [facility] | Interrogation | | | | | [address], | (Primary Dx); | | | | | [place] [address] | Pacemaker; | | | | | [phone] | Sinoatrial node | | | | | | dysfunction (HCC) | | | | | | with symptomatic | | | | | | bradycardia | +--------+ + + + + documented as of this encounter Visit Diagnoses Not on filedocumented in this encounter"
--- OUTSIDE RECORDS SUMMARY | ~2020-04-15 | XMS | Encounter Summary ---
Demographics + + + | Address | [address] | | | [place] [address] | + + + | Home Phone [...] Team Providers + +------+ + | Care Fuel Island Attendant Name | Role | Phone | + +------+ + | Kirk French MD | PCP | | + +------+ + Reason for Visit + + + | Reason | Comments | + + + | Follow-up | | + + + | Coronary Artery | | | Disease | | + + + Follow Up (Routine) +--------+--------+ + + + + | Status | Reason | Specialty | Diagnoses / | Referred By | Referred To | | | | | Procedures | Contact | Contact | +--------+--------+ + + + + | Closed | | Cardiology | Diagnoses | Montoya, | Gemini, | | | | | Chest pain, | Michael Olvera MD | MD Daljit | | | | | unspecified | [address] | | | | | ER FUP | [address] | [address] | | | | | Procedures | [place], | [place], | | | | | FUP | [place] [address] | [place] [address] | | | | | | Phone: | Phone: | | | | | | [phone] | [phone] | | | | | | Fax: | Fax: | | | | | | [phone] | [phone] | +--------+--------+ + + + + Encounter Details +--------+---------+ + + + | Date | Type | Department | Care Team | Description | +--------+---------+ + + + | 02/11/ | Office | [facility] | [place], | Coronary artery | | 2016 | Visit | CARDIOLOGY [address] | Janeen MALTHOUSE LABORER [address] | disease involving | | | | [address] [place], | [address] [place], | samish coronary | | | | [place] [address] | [place] [address] | artery of samish | | | | [phone] | [phone] | heart without angina | | | [...] + + + | Blood Pressure | 112/70 | 2017 3:04 PM | | | | | PDT | | + + + + + | Pulse | 70 | 2017 3:04 PM | | | | | PDT | | + + + + + | Temperature | - | - | | + + + + + | Respiratory Rate | 14 | 2017 3:04 PM | | | | | PDT | | + + + + + | Oxygen Saturation | - | - | | + + + + + | Inhaled Oxygen | - | - | | | Concentration | | | | + + + + + | Weight | 113.4 kg (250 lb) | 2017 3:04 PM | | | | | PDT | | + + + + + | Height | 190.5 cm (6' 3") | 2017 3:04 PM | | | | | PDT | | + + + + + | Body Mass Index | 31.25 | 2017 3:04 PM | | | | | PDT [...] encounter Progress Notes Janeen Vega ARNP - 2017 2:56 PM PDTFormatting of this note might be differen t from the original. PATIENT NAME: Moe Sanchez : 1960: AGE: 57 y.o. PRIMARY CARE: Kirk French MD OUTPATIENT FOLLOW UP VISIT Date of Service: 2017 HISTORY OF PRESENT ILLNESS: Moe Sanchez is a 57 y.o. male with a history of non-critical coronary artery d isease involving samish coronary artery of samish heart without angina pectoris, essential h ypertension, symptomatic bradycardia status post Medtronic dual-chamber permanent pacemaker implantation 06/14/09, frequent premature ventricular contractions status post ablation sprin g 2012, and bipolar disorder with anxiety. He is being seen today for follow up coronary ar taylor disease, hypertension and PVCs. He was last seen 12/29/2016 at which time patient was to continue with same therapeutic med ical regimen and follow-up in 6 months. Since that time he was seen in the emergency room o n 01/24/2017 with complaints of chest pain. His cardiac workup was negative and he was disc harged home. Since that time, he has been "feeling better". He really feels that his proble ms are because of "my anxiety is getting worse". He states "I just need to move to another p lace". He has had a good energy level. He has not been very active. He enjoys fishing in h is spare time. He has had atypical chest discomfort that does not occur with exertion. He has not noticed shortness of breath. He has not had any lightheadedness or dizziness. He has not noticed palpitations. He has noticed mild swelling at ankles by the end of the day that is resolved in the morning, which has been stable for him. He sleeps on 1 pillow at [facility] without any shortness of breath. Overall, he has been doing well otherwise than the [facility] iety. MEDICAL, SURGICAL, AND PERSONAL HISTORY Past Medical, [...] Preventative health care Coronary artery disease involving samish coronary artery of samish heart without angina pectoris Cannabis abuse, daily [...] Take 25 mg by mouth as needed. MELATONIN TABS, at bedtime as needed Methylsulfonylmethane (MSM) 1000 MG TABS Take One time daily. metoprolol succinate (TOPROL-XL) 200 mg ER tablet take 1 tablet by mouth every evening 90 tablet 3 [facility] Natural Products (OSTEO BI-FLEX/5-LOXIN ADVANCED PO) Take [...] 3RD DOSE, CALL 911 100 tablet 3 [place]-3 Fatty Acids (SALMON OIL-1000 PO) CAPS, one capsule by mouth daily twice daily ONE TOUCH DELICA LANCETS [facility] Check glucose as needed for hypoglycemia 100 [...] Lightheaded = No OBJECTIVE: PHYSICAL EXAM BP 112/70 mmHg | Pulse 70 | Resp 14 | Ht 1.905 m (6' 3") | Wt 113.399 kg (250 lb) | BMI 31. 25 kg/m2 Physical Exam Constitutional: He is oriented [...] or performed during the hospital encounter of 01/24/17 ECG 12 lead Result Value Ref Range INTERPRETATION TEXT Atrial-paced rhythm with prolonged AV conduction Abnormal ECG When compared with ECG of 23-JUN-2016 13:12, No significant change was found Confirmed by ANGELA MARADIAGA MD ([id number]) on 01/25/2017 6:45:26 AM LAB RESULTS reviewed during visit today primarily from [facility]: LIPID Lab Results Component Value Date TRIG 88 05/27/2012 HDL 42 05/27/2012 LDL 173* 05/27/2012 CHOLHDL 3.4 06/22/2016 LDLEX 88 06/22/2016 HDLEX 44.3 06/22/2016 TRIGEX 82 06/22/2016 CHOLEX 149 06/22/2016 CHEMISTRY Lab Results Component Value Date GLU 107 01/24/2017 GLUEX 94 11/05/2016 NA 141 01/24/2017 NAEX 136 11/05/2016 K 4.1 01/24/2017 KEX 3.4* 11/05/2016 CL 106 01/24/2017 CLEX 103 11/05/2016 CO2 25 01/24/2017 CO2EX 25 11/05/2016 CALCIUM 9.6 01/24/2017 ALKPHOS 49 01/24/2017 AST 28 01/24/2017 ASTEX 27 11/05/2016 ALT 24 01/24/2017 ALTEX 27 11/05/2016 BILITOT 0.9 01/24/2017 CREA 0.84 01/24/2017 BUN 12 01/24/2017 EGFR >60 04/03/2013 EGFREX 97 11/05/2016 CREEX 0.82 11/05/2016 HEMATOLOGY Lab Results Component Value Date WBC 7.2 01/24/2017 WBCEX 7.3 11/05/2016 HGB 16.2 01/24/2017 HGBEX 16.3 11/05/2016 HCT 48.5 01/24/2017 HCTEX 49.7 11/05/2016 PLT 139* 01/24/2017 PLTEX 162 11/05/2016 I reviewed records from [facility] for emergency department visit o n 01/2017 which is summarized in the HPI. Above data and testing is reviewed this visit; testing below is historical data unless othe rwise specified. ASSESSMENT: 1. Essential hypertension with goal blood pressure less than 130/80: A. Today it has been well controlled 110 mmHg. He is in class I of t he [employer] functional class. On physical examination there are no signs of fluid overload. 2. Non-critical Coronary artery disease involving samish coronary a rtery of samish heart without angina pectoris: A. Normal exercise [...] ventricular arrhythmia performed by Dr. Gambino at [facility] on 01/30/2013. Patient had spontaneous PVCs [...] to go back in 3 days to [place] for an attempt of ablation under general [...] [facility] longevity is 3.5 years.. 5. Lightheadedness and dizziness/ presyncope: A. [...] effective; continue present plan and medications. 2. He will follow up in 6 months for office visit and device interrogation, or sooner with concerns. Portions of this chart may have been created with [employer] voice recognition software. Occasi onal wrong-word or [...] Appointment | Radiology | Silvia, | | 2019 | | | PARISA [place] [address] | | | | | | [place], | | | | | | [place] [address] | | | | | | [phone] | | | | | | | | +--------+ + + + + | 05/01/ | Procedure | Cardiology | | | | 2019 | visit | | | | +--------+ + + + + | 05/01/ | Office | Cardiology | Silvia, | | | 2019 | Visit | | PARISA [place] [address] | | | | | | [place], | | | | | | [place] [address] | | | | | | [phone] | | | | | | | | +--------+ + + + + | 05/21/ | Implant | Cardiology | Daljit Singletary, | Remote Device | | 2019 | Monitor | | [address] | Interrogation | | | | | [place], | (Primary Dx); | | | | | [place] [address] | Pacemaker; | | | | | [phone] | Sinoatrial node | | | | | | dysfunction (HCC) | | | | | | with symptomatic | | | | | | bradycardia | +--------+ + + + + documented as of this encounter Visit Diagnoses + + | Diagnosis | + + | Coronary artery disease involving samish coronary artery of samish heart without | | angina pectoris - Primary | + + | Essential hypertension with goal blood pressure less than 130/80 | + + | Hyperlipidemia, mixed Mixed hyperlipidemia | + + documented in this encounter
--- OUTSIDE RECORDS SUMMARY | ~2020-04-15 | XMS | Encounter Summary ---
Demographics + + + | Address | [address] | | | [place] [address] | + + + | Home Phone [...] Providers + +------+ + | Care Health Occupations Teacher Name | Role | Phone | [...] + + | 01/03/ | Telephone | [facility] | Emmanuel Daniel MD | Results, Pathology | | 2018 | | GASTROENTEROLOGY | [address], [place] | (egd,colon) | | | | [address] [place] | [address] [place], [place] | | | | | [address] [place], [place] | [address] | | | | | [address] | | | | | | [phone] | | | +--------+ + + + [...] | | | | | | [place] [address] | | | | | | [phone] | | | | | | | [...] | | | | | | [place] [address] | | | | | | [phone] | | | | | | | | +--------+ + + + + | 05/21/ | Implant | Cardiology | Daljit Singletary, | Remote Device | 2019 | Monitor | | [address] | Interrogation | | | | | [place], | (Primary Dx); | | | | | [place] [address] | Pacemaker; | | | | | [phone] | Sinoatrial node | | | | | | dysfunction (HCC) | | | | | | with symptomatic | | | | | | bradycardia | +--------+ + + + + documented as of this encounter Visit Diagnoses Not on filedocumented in this encounter"
--- OUTSIDE RECORDS SUMMARY | ~2020-04-15 | XMS | Encounter Summary ---
Demographics + + + | Address | [address] | | | [place] [address] | + + + | Home Phone [...] Team Providers + +------+ + | Care Personal Banker Name | Role | Phone | + [...] | +--------+ + + + + | 11/29/ | Telephone | [facility] [place] | Rabia Gandhirick | Appointment | | 2020 | | GASTROENTEROLOGY | MD Jacek [address] | | | | | [address] [place] | [address] [place] | | | | | [address] [place], [place] | [place] [address] | | | | | [address] | [phone] | | | | | [phone] | | | +--------+ + + + [...] [place], | | | | | | [place] [address] | | | | | | [phone] | | | | | | | | +--------+ + + + + | 05/01/ | Procedure | Cardiology | | | | 2019 | visit | | | | +--------+ + + + + | 05/01/ | Office | Cardiology | Silvia, | | | 2019 | Visit | | [address] | | | | | | [place], | | | | | | [place] [address] | | | | | | [phone] | | | | | | | | +--------+ + + + + | 05/21/ | Implant | Cardiology | Daljit Singletary, | Remote Device | 2019 | Monitor | | [facility] | Interrogation | | | | | [place], | (Primary Dx); | | | | | [place] [address] | Pacemaker; | | | | | [phone] | Sinoatrial node | | | | | | dysfunction (HCC) | | | | | | with symptomatic | | | | | | bradycardia | +--------+ + + + + documented as of this encounter Visit Diagnoses Not on filedocumented in this encounter"
--- OUTSIDE RECORDS SUMMARY | ~2020-04-15 | XMS | Encounter Summary ---
Demographics + + + | Address | [address] | | | [place] [address] | + + + | Home Phone [...] Team Providers + +------+ + | Care Phosphoric Acid Supervisor Name | Role | Phone | + +------+ + | Kirk French MD | PCP | | + +------+ + Reason for Visit + + + | Reason | Comments | + + + | Abdominal Pain | | + + + | Diarrhea (Adult) | | + + + Encounter Details +--------+ + + + + | Date | Type | Department | Care Team | Description | +--------+ + + + + | 10/21/ | Emergency | [facility] | No, Physician p | Patient left after | | 2016 | | [facility] | | triage (Primary Dx) | | | | CENTER [address] | | | | | | [place] | | | | | | [address] | | | | | | [phone] | | | +--------+ + + + [...] + + + | Blood Pressure | 112/74 | 10/21/2017 4:30 PM | | | | | PST | | + + + + + | Pulse | 71 | 10/21/2017 4:30 PM | | | | | PST | | + + + + + | Temperature | 36.9 C (98.4 F) | 10/21/2017 4:30 PM | | | | | PST | | + + + + + | Respiratory Rate | 16 | 10/21/2017 4:30 PM | | | | | PST | | + + + + + | Oxygen Saturation | 97% | 10/21/2017 4:30 PM | | | | | PST | | + + + + + | Inhaled Oxygen | - | - | | | Concentration | | | | + + + + + | Weight | 102.5 kg (226 lb) | 10/21/2017 4:30 PM | | | | | PST | | + + + + + | Height | 193 cm (6' 4") | 10/21/2017 4:30 PM | | | | | PST | | + + + + + | Body Mass Index | 27.51 | 10/21/2017 4:30 PM | | | | | PST [...] + + + +---------+ + + | [place]-3 Fatty | CAPS, one capsule by | [...] | | | | | | [place] [address] | | | | | | [phone] | | | | | | | | +--------+ + + + + | 05/01/ | Procedure | Cardiology | | | | 2019 | visit | | | | +--------+ + + + + | 05/01/ | Office | Cardiology | Silvia, | | | 2019 | Visit | | PARISA [place] [address] | | | | | | [place], | | | | | | [place] [address] | | | | | | [phone] | | | | | | | | +--------+ + + + + | 05/21/ | Implant | Cardiology | Daljit Singletary, | Remote Device | 2019 | Monitor | | [address] [facility] | Interrogation | | | | | [place], | (Primary Dx); | | | | | [place] [address] | Pacemaker; | | | | | [phone] | Sinoatrial node | | | | | | dysfunction (HCC) | | | | | | with symptomatic | | | | | | bradycardia | +--------+ + + + + documented as of this encounter Visit Diagnoses + + | Diagnosis | + + | Patient left after triage - Primary | + + documented in this encounter
--- OUTSIDE RECORDS SUMMARY | ~2020-04-15 | XMS | Encounter Summary ---
Demographics + + + | Address | [address] | | | [place] [address] | + + + | Home Phone [...] Team Providers + +------+ + | Care Tire Adjuster Name | Role | Phone | + [...] [place] | | | | | [address] [place], [place] | [address] | | | | | [address] | | | | | | [phone] | | | +--------+ + + + [...] W | | | | | | [place], | | | | | | [place] [address] | | | | | | [phone] | | | | | | | | +--------+ + + + + | 05/01/ | Procedure | Cardiology | | | | 2019 | visit | | | | +--------+ + + + + | 05/01/ | Office | Cardiology | Silvia, | | | 2019 | Visit | | [address] | | | | | | [place], | | | | | | [place] [address] | | | | | | [phone] | | | | | | | | +--------+ + + + + | 05/21/ | Implant | Cardiology | Daljit Singletary, | Remote Device | | 2020 | Monitor | | [facility] | Interrogation | | | | | [place], | (Primary Dx); | | | | | [place] [address] | Pacemaker; | | | | | [phone] | Sinoatrial node | | | | | | dysfunction ([facility]) | | | | | | [...]
--- OUTSIDE RECORDS SUMMARY | ~2020-04-15 | XMS | Encounter Summary ---
Demographics + + + | Address | [address] | | | [place] [address] | + + + | Home Phone | | + + + | Preferred Language | Unknown | + + + | Marital Status | | + + + | Mandaen Affiliation | 1013 | + + + | Race | Unknown | + + + | Ethnic Group | Unknown | + + + Author + + + | Author | [facility] | | | and [place] | + + + | Organization | [facility] | | [...] Team Providers + +------+ + | Care Spd Tech Name | Role | Phone | [...] + + | 08/24/ | Office | [facility] | Silvia, | Ascending thoracic | | 2018 | Visit | CARDIOLOGY [address] | [address] | aortic aneurysm | | | | [place], | [place], | ([facility]) (Primary Dx); | | | | [place] [address] | [place] [address] | Syncope, unspecified | | | | [phone] | [phone] | syncope type; | | | | | | Hypertension, | | | | | | unspecified type; | | | | | | Coronary artery | | | | | | disease involving | | | | | | [place] coronary | | | | | | artery of [place] | | | | | | heart [...] of non-critical coronary artery d isease involving [place] coronary artery of [place] heart without angina pectoris, essential h ypertension, [...] Preventative health care Coronary artery disease involving [place] coronary artery of [place] heart without angina pectoris Cannabis abuse, daily [...] by mouth Daily. 90 tabl et 1 [facility] Products (OSTEO BI-FLEX/5-LOXIN [...] 3RD DOSE, CALL 911 100 tablet 3 Port Tobacco-3 Fatty Acids (SALMON OIL-1000 PO) CAPS, one capsule by mouth daily twice daily ONE TOUCH DELICA LANCETS [facility] Check glucose as needed for hypoglycemia 100 [...] now present Confirmed by HIREN WINKLER, ANGELA ([id number]) on 07/28/2018 6:03:35 AM LAB RESULTS reviewed during visit today primarily from [facility]: LIPID Lab Results Component Value Date [...] PLTEX 157 04/11/2018 I reviewed records from [facility] for emergency department visit o n [...] ventricular arrhythmia performed by Dr. Gambino at [facility] on 01/30/2013. Patient had spontaneous PVCs from [...] to go back in 3 days to [place] for an attempt of ablation under general [...] He is in class II of the [place] [employer] f unctional class. There are [...] subsided. 2. Non-critical Coronary artery disease involving [place] coronary artery of [place] heart [facility] angina pectoris: A. Normal exercise [...] cannot completely be ruled out . [facility] 12/25/13, shows non critical coronary artery [...] this chart may have been created with [employer] voice recognition software. Occasi onal wrong-word or [...] W | | | | | | [place], | | | | | | [place] [address] | | | | | | [phone] | | | | | | | | +--------+ + + + + | 05/01/ | Procedure | Cardiology | | | | 2019 | visit | | | | +--------+ + + + + | 05/01/ | Office | Cardiology | Silvia, | | | 2019 | Visit | | [address] | | | | | | [place], | | | | | | [place] [address] | | | | | | [phone] | | | | | | | | +--------+ + + + + | 05/21/ | Implant | Cardiology | Daljit Singletary, | Remote Device | | 2019 | Monitor | | [address] [place] | Interrogation | | | | | [place], | (Primary Dx); | | | | | [place] [address] | Pacemaker; | | | | | [phone] | Sinoatrial node | | | | [...] + + | Coronary artery disease involving [place] coronary artery of [place] heart without | | angina pectoris | [...]
--- OUTSIDE RECORDS SUMMARY | ~2020-04-15 | XMS | Encounter Summary ---
Demographics + + + | Address | [address] | | | [place] [address] | + + + | Home Phone [...] Team Providers + +------+ + | Care Mosaic Worker Name | Role | Phone | + +------+ + | Kirk French MD | PCP | | + +------+ + Reason for Visit + + + | Reason | Comments | + + + | Lab Order | due for fasting labs | + + + Encounter Details +--------+ + + + + | Date | Type | Department | Care Team | Description | +--------+ + + + + | 12/23/ | Telephone | [facility] | Silvia, | Lab Order (due for | | 2017 | | CARDIOLOGY [address] | Janeen, QUALITY TECHNICIAN FIBERGLASS [address] | fasting labs) | | | | [place], | [place], | | | | | [place] [address] | [place] [address] | | | | | [phone] | [phone] | | | | | | | [...] | | | | | | [place] [address] | | | | | | [phone] | | | | | | | | +--------+ + + + + | 05/01/ | Procedure | Cardiology | | | | 2019 | visit | | | | +--------+ + + + + | 05/01/ | Office | Cardiology | Silvia, | | | 2019 | Visit | | [address] | | | | | | [place], | | | | | | [place] [address] | | | | | | [phone] | | | | | | | | +--------+ + + + + | 05/21/ | Implant | Cardiology | Daljit Singletary, | Remote Device | | 2019 | Monitor | | [facility] | Interrogation | | | | | [place], | (Primary Dx); | | | | | [place] [address] | Pacemaker; | | | | | [phone] | Sinoatrial node | | | | | | dysfunction (HCC) | | | | | | with symptomatic | | | | | | bradycardia | +--------+ + + + + documented as of this encounter Visit Diagnoses Not on filedocumented in this encounter"
--- OUTSIDE RECORDS SUMMARY | ~2020-04-15 | XMS | Encounter Summary ---
Demographics + + + | Address | [address] | | | [place] [address] | + + + | Home Phone [...] Team Providers + +------+ + | Care Pumper Gauger Name | Role | Phone | + +------+ + | Kirk French MD | PCP | | + +------+ + Encounter Details +--------+ + + + + | Date | Type | Department | Care Team | Description | +--------+ + + + + | 06/19/ | Orders Only | [facility] | Fabrice Hylton, | Abnormal weight | | 2019 | | SYSTEM GENERIC OP | MD [address] | loss; Anxiety | | | | CONVERSION [address] | [address] [place], [place] | disorder; Chronic | | | | [address] [place], [place] | [address] | pain syndrome; | | | | [address] | | Obesity; Neuralgia | | | | [phone] | | and neuritis, | | | [...] | | | | | | [place] [address] | | | | | | [phone] | | | | | | | | +--------+ + + + + | 05/01/ | Procedure | Cardiology | | | | 2019 | visit | | | | +--------+ + + + + | 05/01/ | Office | Cardiology | Silvia, | | | 2019 | Visit | | [address] | | | | | | [place], | | | | | | [place] [address] | | | | | | [phone] | | | | | | | | +--------+ + + + + | 05/21/ | Implant | Cardiology | Daljit Singletary, | Remote Device | 2019 | Monitor | | [address] [place] | Interrogation | | | | | [place], | (Primary Dx); | | | | | [place] [address] | Pacemaker; | | | | | [phone] | Sinoatrial node | | | | | | dysfunction ([facility]) | | | | | [...]
--- OUTSIDE RECORDS SUMMARY | ~2020-04-15 | XMS | Encounter Summary ---
Demographics + + + | Address | [address] | | | [place] [address] | + + + | Home Phone [...] Team Providers + +------+ + | Care Classified Ad Taker Name | Role | Phone | + +------+ + | Michael Amanda DO | PCP | | + +------+ + Reason for Visit + + + | Reason | Comments | + + + | Follow-up | | + + + | Coronary Artery | | | Disease | | + + + | Bradycardia | | + + + | Device Check | | | (In-office) | | + + + Encounter Details +--------+---------+ + + + | Date | Type | Department | Care Team | Description | +--------+---------+ + + + | 10/23/ | Office | [facility] | Silvia, | CAD (coronary artery | | 2013 | Visit | CARDIOLOGY [address] | [place] [address] | disease) (Primary | | | | [place], | [place], | Dx); Other chest | | | | [place] [address] | [place] [address] | pain; Chest pain; | | | | [phone] | [phone] | Coronary artery | | | | | | disease; Pacemaker - | | | | | | Medtronic - [id number] | | | | | | Adapta - Implanted | | | | | | 06/14/2009; | | | | | | Tachycardia; | | | | | | Hypertension; SINUS | | | | | | BRADYCARDIA; Syncope | +--------+---------+ + + + Social History [...] + + + | Blood Pressure | 116/78 | 10/23/2014 2:19 PM | | | | | PST | | + + + + + | Pulse | 62 | 10/23/2014 2:19 PM | | | | | PST | | + + + + + | Temperature | - | - | | + + + + + | Respiratory Rate | 18 | 10/23/2014 2:19 PM | | | | | PST | | + + + + + | Oxygen Saturation | - | - | | + + + + + | Inhaled Oxygen | - | - | | | Concentration | | | | + + + + + | Weight | 112 kg (247 lb) | 10/23/2014 2:19 PM | | | | | PST | | + + + + + | Height | 193 cm (6' 4") | 10/23/2014 2:19 PM | | | | | PST | | + + + + + | Body Mass Index | 30.07 | 10/23/2014 2:19 PM | | | | | PST | | + + + + + documented in this encounter Progress Notes Kailey Pruitt RN - 10/23/2014 3:20 PM PST DEVICE INTERROGATION Name: Moe Sanchez Date: October 23, 2014 : 1960 Escrow Clerk: Kailey Pruitt RN Device Edge Stripper: [employer] Sense (mV) Impedance (?) Capture (V) Capture (ms) A Lead 2.80-4.00 407 1.500 0.09 RV Lead 22.40-31.36 519 2.000 0.09 LV Lead Battery Impedance (?): 658 Battery Voltage (V): 2.79 TX Interval (ms): 155 AR Interval (ms): 240 VA Conduction: Mode Switch Events: 1 % of time: <0.1 -AUXILIARY ENGINEER: <0.1% AP-AUXILIARY ENGINEER: <0.1% -VS: 13.8% AP-VS: 86.1% AUXILIARY ENGINEER: Magnetic Rate: 85 LINDA: 65 LEAH: Current Underlying Rhythm: Shows sinus bradycardia with rate 35-50 beats per minute. The se nsing test was run in DDD mode at 30 beats per minute. Mode: AAIR<=>DDDR (MVP) AMS (bpm): 175 Rate (bpm): 70 Sensor (on/off): On Max Track (bpm): 130 Upper Sensor Rate (bpm): 130 Hysteresis: Paced AV Delay (ms): 150 Circadian: Sensed AV Delay (ms): 120 PVARP (ms): 310 Sensitivity (mV) Pulse Amplitude (V) Pulse Width (ms) A Lead 0.70 1.500 0.40 RV Lead 5.60 2.000 0.40 LV Lead Comments: Events: No new episodes PVC singles: 4390 PVC runs: 7 PAC runs 7 Heart rate histogram shows fair distribution. Normal and stable device function. Estimated remaining device longevity is 6.5 years. Remote monitoring: None, prefers office. Device check due in office in 6 months or sooner with concerns. Electronically signed by: Kailey Pruitt RN 10/23/2014 15:22 ames Janeen, MARKET RESEARCH INTERVIEWER - 10/23/2014 2:22 PM PST PATIENT NAME: Moe Sanchez : 1960: AGE: 54 y.o. PRIMARY CARE: Michael Amanda DO OUTPATIENT FOLLOW UP VISIT Date of Service: 10/23/2014 HISTORY OF PRESENT ILLNESS: Moe Sanchez is a 54 y.o. male with a history of non-critical coronary artery d isease, hypertension, symptomatic bradycardia status post Medtronic dual-chamber permanent p acemaker implantation 06/14/09, frequent premature ventricular contractions status post ablat ion spring 2012, and bipolar disorder with anxiety. He is being seen today for follow up he r nares artery disease and device interrogation. He was last seen 06/25/2014 at which time he was to continue same therapeutic medical regim en and follow up in 3 months. Since that time, he has been staying physically active with h season. He has not been exercising on regular basis. He has been almost free of chest pain except for 2 weeks a couple of months ago when he had chest pain almost daily but it r esolved on its own. He has not noticed any more rises in the blood pressure or in palpitatio ns. He denies lightheadedness, dizziness, palpitations, or leg swelling. He sleeps on 1 pill ow at night and has no shortness of breath when laying down. MEDICAL, SURGICAL, AND PERSONAL HISTORY Past Medical, [...] Tachycardia Preventative health care Coronary artery disease Cannabis abuse, daily use CURRENT MEDICATIONS Current Outpatient Prescriptions Medication Sig [...] by mouth 2 times daily (before meals). isosorbide mononitrate (IMDUR) 30 mg ER tablet Take 1 tablet by mouth Daily. 30 tablet 11 LORazepam (ATIVAN) 1 mg tablet 1/2 to 1 tab up to three times per day prn 20 tablet 0 Magnesium 500 MG CAPS Take 500 mg by mouth Daily. MELATONIN TABS, at bedtime as needed metoprolol succinate (TOPROL-XL) 200 mg ER tablet Take 1 tablet by mouth Daily. 30 tab let 6 Misc Natural Products (OSTEO BI-FLEX/5-LOXIN ADVANCED PO) Take by mouth. Takes 2 table ts in the morning and 2 tablets at night nitroglycerin (NITROSTAT) 0.[address] 1 tablet under the tongue every 5 luz marcos as needed for Chest pain. 25 tablet 12 [place]-3 Fatty Acids (SALMON OIL-1000 PO) CAPS, one capsule by mouth daily twice daily ONE TOUCH DELICA LANCETS [facility] Check glucose as needed for hypoglycemia 100 [...] Neurological: Positive for dizziness. Negative for weakness. OBJECTIVE: PHYSICAL EXAM BP 116/78 | Pulse 62 | Resp 18 | Ht 1.93 m (6' 4") | Wt 112.038 kg (247 lb) | BMI 30.08 kg/ m2 Physical Exam Constitutional: He is [...] a depressed mood. ECG: I personally reviewed EKG tracing from 10/23/2014 shows atrial-paced rhythm heart rate 71 bpm. See scanned document for further interpretation. LAB RESULTS: LIPID Lab Results Component Value Date TRIG 88 05/27/2012 HDL 42 05/27/2012 LDL 173* 05/27/2012 CHOLHDL 3.1 08/08/2013 LDLEX 108 07/26/2014 HDLEX 44.3 07/26/2014 TRIGEX 56 07/26/2014 CHOLEX 163 07/26/2014 CHEMISTRY Lab Results Component Value Date GLU 120 07/26/2014 NA 138 07/26/2014 K 3.7 07/26/2014 CL 105 07/26/2014 CO2 24 07/26/2014 CALCIUM 9.6 07/26/2014 ALKPHOS 53 07/26/2014 AST 32 07/26/2014 ASTEX 32 07/26/2014 ALT 29 07/26/2014 ALTEX 29 07/26/2014 BILITOT 1.0 07/26/2014 CREA 0.89 05/26/2014 BUN 14 07/26/2014 EGFR >60 04/03/2013 EGFREX 91 07/26/2014 CREEX 0.87 07/26/2014 HEMATOLOGY Lab Results Component Value Date WBC 6.2 07/26/2014 HGB 16.8* 07/26/2014 HCT 48.7 07/26/2014 PLT 163 07/26/2014 HGBEX 16.8 07/26/2014 I reviewed records from PCP for office visit on 07/25/2014. ASSESSMENT: 1. Non-critical coronary artery disease: A. [...] attenuation cannot completely be ruled out. [facility] 12/25/13, shows non critical coronary artery [...] episodes of chest pain over the last s everal months except for a 2 week period. He has not followed a structure exercise program, however, he is trying to stay physically active by working in his yard and hunting. He is i n class I-II of [place] [employer] Association functional class. There are no signs or symptoms of overt congestive heart failure. On physical examination there are no signs of fluid ove rload. Patient is in therapy with statin, aspirin, [...] to go back in 3 days to [place] for an attempt of ablation under general [...] further complaints of episodes of palpitations, lightheadedness o r dizziness. He is in class I-II of [place] Heart Association functional class. There are n o signs or symptoms of overt congestive heart failure. There is no fluid retention on physi maria luz examination. Patient continues amlodipine, Cardizem and metoprolol. 3. Profound bradycardia associated with dizziness, lightheadedness, and syncope: A. The echocardiogram on 05/25/09 revealed a normal left ventricular size and sys tolic function, LVEF 65 to 70%. B. Medtronic DDD permanent pacemaker implantation on 06/14/[address] Daljit masters. C. Last device interrogation on 09/2014 shows a normal stable function with o nly couple of increase of PVC's mostly asymptomatic. 4. Hypertension. A. Today blood pressure is [...] [address] PLAN: 1. He will follow the same therapeutic medical regimen and try to increase exercise. 2. He will follow up in 6 months, or sooner with concerns. Next appointment he might need r e-check on CTA I, PARISA Russell, saw this patient under the direct supervision of Fabrice Jaeger MD Portions of this chart may have been created with [employer] voice recognition software. Occasi onal wrong-word or [...] W | | | | | | [place], | | | | | | [place] [address] | | | | | | [phone] | | | | | | | | +--------+ + + + + | 05/01/ | Procedure | Cardiology | | | | 2019 | visit | | | | +--------+ + + + + | 05/01/ | Office | Cardiology | Silvia, | | | 2019 | Visit | | [address] [address] | | | | | | [place], | | | | | | [place] [address] | | | | | | [phone] | | | | | | | | +--------+ + + + + | 05/21/ | Implant | Cardiology | Daljit Singletary, | Remote Device | | 2019 | Monitor | | [address] [place] | Interrogation | | | | | [place], | (Primary Dx); | | | | | [place] [address] | Pacemaker; | | | | | [phone] | Sinoatrial node | | | | [...] 12 lead | ECG | Routin | CAD (coronary | Ordered: 10/23/2014 | | | | e | artery disease) | | | | | | Other chest pain | | + +------+--------+ + + documented as of this encounter Procedures + +--------+ + + + | Procedure Name | Priori | Date/Time | Associated Diagnosis | Comments | | | ty | | | | + +--------+ + + + | DEVICE INTERROGATION | Routin | 10/23/2014 | Pacemaker - | Results for this | | | e | 3:23 PM | Medtronic - [id number] | procedure are in the | | | | PST | Adapta - Implanted | results section. | | | | | 06/14/2009 SINUS | | | | | | BRADYCARDIA | | + +--------+ + + + | ECG - EXTERNAL SCAN | | 10/23/2014 | | Results for this | | | | 12:00 AM | | procedure are in the | | | | PST | | results section. | + +--------+ + + + documented in this encounter Results Device Interrogation (10/23/2014 3:23 PM PST) + + + | Narrative | Performed At | + + + | Kailey Pruitt RN 10/23/2014 15:23 DEVICE INTERROGATION | | | Name: Moe Sanchez Date: October 23, 2014 : | | | 1960 Escrow Clerk: Kailey Pruitt RN Device Edge Stripper: | | | [employer] Sense (mV) Impedance (?) Capture (V) Capture (ms) A | | | Lead 2.80-4.00 407 1.500 0.09 RV Lead 22.40-31.36 519 2.000 0.09 | | | LV Lead Battery Impedance (?): 658 Battery Voltage (V): 2.79 | | | TX Interval (ms): 155 AR Interval (ms): 240 VA Conduction: Mode | | | Switch Events: 1 % of time: <0.1 -AUXILIARY ENGINEER: <0.1% AP-AUXILIARY ENGINEER: <0.1% -VS: | | | 13.8% AP-VS: 86.1% AUXILIARY ENGINEER: Magnetic Rate: 85 LINDA: 65 LEAH: Current | | | Underlying Rhythm: Shows sinus bradycardia with rate 35-50 beats per | | | minute. The sensing test was run in DDD mode at 30 beats per | | | minute. Mode: AAIR<=>DDDR (MVP) AMS (bpm): 175 Rate (bpm): | | | 70 Sensor (on/off): On Max Track (bpm): 130 Upper Sensor Rate | | | (bpm): 130 Hysteresis: Paced AV Delay (ms): 150 Circadian: | | | Sensed AV Delay (ms): 120 PVARP (ms): 310 Sensitivity (mV) | | | Pulse Amplitude (V) Pulse Width (ms) A Lead 0.70 1.500 0.40 RV | | | Lead 5.60 2.000 0.40 LV Lead Comments: Events: No new | | | episodes PVC singles: 4390 PVC runs: 7 PAC runs 7 Heart rate | | | histogram shows fair distribution. Normal and stable device | | | function. Estimated remaining device longevity is 6.5 years. Remote | | | monitoring: None, prefers office. Device check due in office in 6 | | | months or sooner with concerns. Electronically signed by: Kailey Molina | | Shanique Pruitt RN 10/23/2014 15:22 | | + + + + + | Procedure Note | + + | Kailey Pruitt RN - 10/23/2014 3:23 PM PST Formatting of this note might be | | different from the original. DEVICE INTERROGATIONName: Moe Sanchez | | Date: October 23, 2014DOB: 1960 Escrow Clerk: Kailey rPuitt RNDevice Edge Stripper: | | Medtronic Sense (mV) Impedance (?) Capture (V) Capture (ms) A Lead 2.80-4.00 407 1.500 | | 0.09 RV Lead 22.40-31.36 519 2.000 0.09 LV Lead Battery Impedance (?): 658 Battery | | Voltage (V): 2.79 TX Interval (ms): 155 AR Interval (ms): 240 VA Conduction: Mode | | Switch Events: 1 % of time: <0.1 -AUXILIARY ENGINEER: <0.1% AP-AUXILIARY ENGINEER: <0.1% -VS: 13.8% AP-VS: 86.1% AUXILIARY ENGINEER: | | Magnetic Rate: 85 LINDA: 65 LEAH: Current Underlying Rhythm: Shows sinus bradycardia | | with rate 35-50 beats per minute. The sensing test was run in DDD mode at 30 beats per | | minute. Mode: AAIR<=>DDDR (MVP) AMS (bpm): 175 Rate (bpm): 70 Sensor (on/off): On Max | | Track (bpm): 130 Upper Sensor Rate (bpm): 130 Hysteresis: Paced AV Delay (ms): 150 | | Circadian: Sensed AV Delay (ms): 120 PVARP (ms): 310 Sensitivity (mV) Pulse | | Amplitude (V) Pulse Width (ms) A Lead 0.70 1.500 0.40 RV Lead 5.60 2.000 0.40 LV Lead | | Comments: Events: No new episodesPVC singles: 4390PVC runs: 7PAC runs 7Heart rate | | histogram shows fair distribution. Normal and stable device function.Estimated | | remaining device longevity is 6.5 years.Remote monitoring: None, prefers office. Device | | check due in office in 6 months or sooner with concerns. Electronically signed by: Kailey | | Tracy Pruitt RN 10/23/2014 15:22 | |Mode: AAIR<=>DDDR (MVP) AMS (bpm): 175 | |Rate (bpm): 70 Sensor (on/off): On | |Max Track (bpm): 130 Upper Sensor Rate (bpm): 130 | |Hysteresis: Paced AV Delay (ms): 150 | |Circadian: Sensed AV Delay (ms): 120 | | PVARP (ms): 310 | | Sensitivity (mV) Pulse Amplitude (V) Pulse Width (ms) | |A Lead 0.70 1.500 0.40 | |RV Lead 5.60 2.000 0.40 | |LV Lead | |Comments: | |Events: No new episodes | |PVC singles: 4390 | |PVC runs: 7 | |PAC runs 7 | |Heart rate histogram shows fair distribution. | |Normal and stable device function. | |Estimated remaining device longevity is 6.5 years. | |Remote monitoring: None, prefers office. Device check due in office in 6 months or sooner with concerns. Electronically signed by: Kailey Pruitt RN 10/23/2014 15:22 | + + ECG - EXTERNAL SCAN (10/23/2014 12:00 AM PST) + + + | Narrative | Performed At | + + + | Ordered by an | | | unspecified provider. | | + + + + + | Transcriptions | + + | Randa Melo - 10/23/2014 12:00 AM PST | + + documented in this encounter Visit Diagnoses + + | Diagnosis | + + | CAD (coronary artery disease) - Primary Coronary atherosclerosis of unspecified type | | of vessel, [place] or graft | + + | Other chest pain | + + | Chest pain Chest pain, unspecified | + + | Coronary artery disease Coronary atherosclerosis of unspecified type of vessel, | | [place]walek or graft | + + | Pacemaker - Medtronic - [id number] Adapta - Implanted 06/14/2009 Cardiac pacemaker in situ | + + | Tachycardia Tachycardia, unspecified | + + | Hypertension Unspecified essential hypertension | + + | SINUS BRADYCARDIA Sinoatrial node dysfunction | + + | Syncope Syncope and collapse | + + documented in this encounter
--- OUTSIDE RECORDS SUMMARY | ~2020-04-15 | XMS | Encounter Summary ---
Demographics + + + | Address | [address] | | | [place] [address] | + + + | Home Phone [...] Team Providers + +------+ + | Care Noc Technician Name | Role | Phone | [...] + + | 09/05/ | Office | [facility] | Geri Angel, | SINUS BRADYCARDIA | | 2012 | Visit | CARDIOLOGY [address] | RELINER [address] | (Primary Dx); | | | | [place], | [place] | Symptomatic PVCs; | | | | [place] [address] | [address] | Hypertension; | | | | [phone] | | Hyperlipidemia | +--------+---------+ + + [...] and/or ref er you to electrophysiology in [place]. 3. Return in 3 months, or sooner [...] he did not followup with electrophysiology in [place], so he has remained on diltiaze m [...] Family Status Relation Status Age Mother [address] Father Alive Unknown health Brother Alive Sister [...] by mouth Ken y. 30 tablet 6 [place]-3 Fatty Acids (SALMON OIL-1000 PO) Active CAPS, [...] Sanchez Date: September 05, 2013 : 1960 Machine Ii Coremaker: PARISA Velazquez Device Credit Front Office Developer: [employer] Sense (mV) Impedance (?) Capture (V) Capture (ms) A Lead 4-5.6 417 1.5 0.12 RV Lead >31.36 533 2.0 0.09 LV Lead Battery Impedance (?): 452 Battery Voltage (V): 2.79 SC Interval (ms): 162 AR Interval (ms): 245 VA Conduction: Mode Switch Events: 1 % of time: <0.1 -AWNING MAKER: <0.1% AP-AWNING MAKER: 0.1% -VS: 22.7% AP-VS: 77.1% AWNING MAKER: Magnetic Rate: 85 LINDA: 65 LEAH: Current [...] ventricular arrhythmia performed by Dr. Gambino at [facility] on 01/30/2013. Patient had spontaneous PVCs [...] to go back in 3 days to [place] for an attempt of ablation under general [...] He is upgraded to class I of [place] Heart Association functional class. There are no [...] he would like to see electrophysiology in [place] rather than [place] as he paulino s family there, if [...] to ensure accuracy; however, inadvertent computerized manager environmental affairs errors may be pre sent. Electronically signed [...] [place], | | | | | | [place] [address] | | | | | | [phone] | | | | | | | | +--------+ + + + + | 05/01/ | Procedure | Cardiology | | | 2019 | visit | | | | +--------+ + + + + | 05/01/ | Office | Cardiology | Silvia, | | | 2019 | Visit | | PARISA [place] [address] | | | | | | [place], | | | | | | [place] [address] | | | | | | [phone] | | | | | | | | +--------+ + + + + | 05/21/ | Implant | Cardiology | Daljit Singletary, | Remote Device | | 2019 | Monitor | | [address] [place] | Interrogation | | | | | [place], | (Primary Dx); | | | | | [place] [address] | Pacemaker; | | | | | [phone] | Sinoatrial node | | | | | | dysfunction ([facility]) | | | | | | with [...]
--- OUTSIDE RECORDS SUMMARY | ~2020-04-15 | XMS | Encounter Summary ---
Demographics + + + | Address | [address] | | | [place] [address] | + + + | Home Phone [...] Providers + +------+ + | Care Wood Tile Installer Name | Role | Phone | + +------+ + | Kirk French MD | PCP | | + +------+ + Encounter Details +--------+ + + + + | Date | Type | Department | Care Team | Description | +--------+ + + + + | 10/25/ | Hospital | [facility] | Kirk French | Aneurysm (HCC) | | 2017 | Encounter | [facility] | D, MD [address] | | | | | [address] [place] | [address] | | | | | [place], [place] | [place] [address] | | | | | [address] | [phone] | | | | | [phone] | | | | | | | [...] + + + +---------+ + + | [place]-3 Fatty | CAPS, one capsule by | [...] W | | | | | | [place], | | | | | | [place] [address] | | | | | | [phone] | | | | | | | | +--------+ + + + + | 05/01/ | Procedure | Cardiology | | | | 2019 | visit | | | | +--------+ + + + + | 05/01/ | Office | Cardiology | Silvia, | | | 2019 | Visit | | [address]ISA [address] | | | | | | [place], | | | | | | [place] [address] | | | | | | [phone] | | | | | | | | +--------+ + + + + | 05/21/ | Implant | Cardiology | Daljit Singletary, | Remote Device | | 2019 | Monitor | | [address] [facility] | Interrogation | | | | | [place], | (Primary Dx); | | | | | [place] [address] | Pacemaker; | | | | | [phone] | Sinoatrial node | | | | [...]
--- OUTSIDE RECORDS SUMMARY | ~2020-04-15 | XMS | Encounter Summary ---
Demographics + + + | Address | [address] | | | [place] [address] | + + + | Home Phone [...] Team Providers + +------+ + | Care Head Librarian Name | Role | Phone | + +------+ + | Kirk French MD | PCP | | + +------+ + Reason for Visit +--------+ + | Reason | Comments | +--------+ + | Other | medication question | +--------+ + Encounter Details +--------+ + + + + | Date | Type | Department | Care Team | Description | +--------+ + + + + | 01/30/ | Telephone | [facility] [place] | [place]via, | Other (medication | | 2020 | | CARDIOLOGY [address] | [place] [address] | question) | | | | [place], | [place], | | | | | [place] [address] | [place] [address] | | | | | [phone] | | | | | | | [...] | | | | | | [place] [address] | | | | | | [phone] | | | | | | | | +--------+ + + + + | 05/01/ | Procedure | Cardiology | | | | 2019 | visit | | | | +--------+ + + + + | 05/01/ | Office | Cardiology | Silvia, | | | 2019 | Visit | | PARISA Vernon [address] | | | | | | [place], | | | | | | [place] [address] | | | | | | [phone] | | | | | | | | +--------+ + + + + | 05/21/ | Implant | Cardiology | Daljit Singletary, | Remote Device | | 2019 | Monitor | | [address] [place] | Interrogation | | | | | [place], | (Primary Dx); | | | | | [place] [address] | Pacemaker; | | | | | [phone] | Sinoatrial node | | | | | | dysfunction ([facility]) | | | | | | with symptomatic | | | | | | bradycardia | +--------+ + + + + documented as of this encounter Visit Diagnoses Not on filedocumented in this encounter"
--- OUTSIDE RECORDS SUMMARY | ~2020-04-15 | XMS | Encounter Summary ---
Demographics + + + | Address | [address] | | | [place] [address] | + + + | Home Phone [...] Providers + +------+ + | Care Director Banking Name | Role | Phone | + +------+ + | Kirk French MD | PCP | | + +------+ + Encounter Details +--------+ + + + + | Date | Type | Department | Care Team | Description | +--------+ + + + + | 04/11/ | Orders Only | [facility] | Emmanuel Polo | | | 2018 | | [address] | MD William [address] | | | | | [place] | [address] | | | | | [address] | [place] | | | | | [phone] | [address] | | | | | | [phone] | | | | | | | [...] Progress Notes Conversion Transaction, Provider Unknown - 04/11/2018 11:59 PM PDTFormatting of this note m ight be different from the original. Progress Notes by Kylah Fraser CMA at 04/11/18 9239 Author: Kylah Fraser CMA Service: (none) Author Type: Strategic Planning Manager Filed: 04/19/18 1118 Encounter Date: 04/11/2018 Status: Signed Boiler Washer: Kylah Fraser CMA (Strategic Planning Manager) See telephone encounter 04/19/18. Karen pfeiffer in this encounter Plan of Treatment +--------+ + + + + | Date | Type | Specialty | Care Team | Description | +--------+ + + + + | 05/01/ | Appointment | Radiology | Silvia, | | | 2019 | | | PARISA Vernon [address] | | | | | | [place], | | | | | | [place] [address] | | | | | | [phone] | | | | | | | | +--------+ + + + + | 05/01/ | Procedure | Cardiology | | | | 2019 | visit | | | | +--------+ + + + + | 05/01/ | Office | Cardiology | Silvia, | | | 2019 | Visit | | PARISA Vernon [address] | | | | | | [place], | | | | | | [place] [address] | | | | | | [phone] | | | | | | | | +--------+ + + + + | 05/21/ | Implant | Cardiology | Daljit Singletary, | Remote Device | | 2019 | Monitor | | [address] [place] | Interrogation | | | | | [place], | (Primary Dx); | | | | | [place] [address] | Pacemaker; | | | | | [phone] | Sinoatrial node | | | | [...] + | CULTURE, STOOL | Routin | 04/11/2018 | | Results for this | | | e | 11:00 AM | | procedure are in the | | | | PDT | | results section. | + +--------+ + + + documented in this encounter Results Culture, Stool (04/11/2018 11:00 AM PDT) + + | Specimen | + + | | + + + + + | Narrative | Performed At | + + + | Specimen Description STOOL CULTURE | EXTERNAL LAB | | NEGATIVE FOR SHIGA TOXIN TYPE 1 | | | AND 2. NEGATIVE | | | FOR SALMONELLA, SHIGELLA AND CAMPYLOBACTER | | | IF A YERSINIA OR VIBRIO IS SUSPECTED, | | | PLEASE CONTACT THE MICRO LAB FOR SPECIAL TESTING. | | + + + + +---------+ + + | Performing | Address | City/State/Zipcode | Phone Number | | Organization | | | | + +---------+ + + | EXTERNAL LAB | | | | + +---------+ + + documented in this encounter Visit Diagnoses Not on filedocumented in this encounter"
--- OUTSIDE RECORDS SUMMARY | ~2020-04-15 | XMS | Encounter Summary ---
Demographics + + + | Address | [address] | | | [place] [address] | + + + | Home Phone [...] Providers + +------+ + | Care Coal Pipeline Operator Name | Role | Phone | [...] + + | 09/13/ | Office | [facility] | Bahman Gant MD | Other dysphagia | | 2013 | Visit | OTOLARYNGOLOGY [address] | [address] [place] | (Primary Dx) | | | | [address] | [address] [place], | | | | | [place], [place] | [place] [address] | | | | | [address] | [phone] | | | | | [phone] | | | +--------+---------+ + + + [...] MD - 09/13/2013 5:46 PM PDTSee dictation #[id number] signed by Joseph Gant MD at 09/13/2013 5:52 PM Bahman Lamb MD - 09/13/2013 12:00 AM PDT ENT AND AUDIOLOGY [address] [facility] [address] [place] [address] FAX: [phone] OFFICE VISIT The patient gives a history [...] Gant MD GM / MS JOB #: [id number] signed by Bahman Gant MD at 09/14/2013 [...] [place], | | | | | | [place] [address] | | | | | | [phone] | | | | | | | | +--------+ + + + + | 05/01/ | Procedure | Cardiology | | | 2019 | visit | | | | +--------+ + + + + | 05/01/ | Office | Cardiology | Silvia, | | | 2019 | Visit | | PARISA Vernon W | | | | | | [place], | | | | | | [place] [address] | | | | | | [phone] | | | | | | | | +--------+ + + + + | 05/21/ | Implant | Cardiology | Daljit Singletary, | Remote Device | | 2019 | Monitor | | MD [facility] | Interrogation | | | | | [place], | (Primary Dx); | | | | | [place] [address] | Pacemaker; | | | | | [phone] | Sinoatrial node | | | | | | dysfunction ([facility]) | | | | | | with [...]
--- OUTSIDE RECORDS SUMMARY | ~2020-04-15 | XMS | Encounter Summary ---
Demographics + + + | Address | [address] | | | [place] [address] | + + + | Home Phone [...] Team Providers + +------+ + | Care Terminal Make Up Operator Name | Role | Phone | + +------+ + | Kirk French MD | PCP | | + +------+ + Encounter Details +--------+ + + + + | Date | Type | Department | Care Team | Description | +--------+ + + + + | 06/03/ | Hospital | [facility] | Conversion | Back pain, | | 2014 | Encounter | CONVERSION DEP [address] | Transaction, | unspecified location | | | | [address] | Provider Unknown | | | | | [place], [place] | [phone] | | | | | [address] | (Fax) | | | | | [phone] | | | +--------+ + + + [...] 1,000 mg by | | 0 | 18 | | | (VITAMIN C) 1000 MG [...] + + + +---------+ + + | Ensign-3 Fatty | CAPS, one capsule by | [...] | | | | | | | #[id number], exp 07/2016 | | | | | [...] | | | | | | [place] [address] | | | | | | [phone] | | | | | | | | +--------+ + + + + | 05/01/ | Procedure | Cardiology | | | | 2019 | visit | | | | +--------+ + + + + | 05/01/ | Office | Cardiology | Silvia, | | | 2019 | Visit | | PARISA Vernon [address] | | | | | | [place], | | | | | | [place] [address] | | | | | | [phone] | | | | | | | | +--------+ + + + + | 05/21/ | Implant | Cardiology | Daljit Singletary, | Remote Device | | 2019 | Monitor | | [address] [facility] | Interrogation | | | | | [place], | (Primary Dx); | | | | | [place] [address] | Pacemaker; | | | | | [phone] | Sinoatrial node | | | | | | dysfunction ([facility]) | | | | | | [...] Back pain, unspecified location | + + documented in this encounter"
--- OUTSIDE RECORDS SUMMARY | ~2020-04-15 | XMS | Encounter Summary ---
Demographics + + + | Address | [address] [place] [address] [address] | | | [place] [address] | + + + | Home Phone [...] + + + | Author | [facility] | + + + | Organization | [facility] | + + + | Address | Unknown | + + + | Phone | Unavailable | + + + Support + + + + + | Name | Relationship | Address | Phone | + + + + + | Rachel Valencia | ELIEZER | [place] | | | | | [address] | | + + + + + Care Team Providers + +------+ + | Care Driving School Instructor Name | Role | Phone | [...] Yao | | | | | at [facility] | [facility] | | | | | [address] | [place] [address] | | | | | [address] | | | | | | [place], [address] [place] [address] | | | | | | [place], [place] | | | | | | [address] | | | | | | [phone] | | | +--------+ + + + [...] view image for the detailed interpretation from [employer] results. | CARDIOLOGY | + + + + + + + + | Performing | Address | City/State/Zipcode | Phone Number | | Organization | | | | + + + + + | [facility] | [address] | [place], [place] | | | CARDIOLOGY | [address] | [address] | | + + + + + documented in this encounter Visit Diagnoses Not on filedocumented in this encounter"
--- OUTSIDE RECORDS SUMMARY | ~2020-04-15 | XMS | Encounter Summary ---
Demographics + + + | Address | [address] | | | [place] [address] | + + + | Home Phone [...] Team Providers + +------+ + | Care Concrete Bucket Hooker Name | Role | Phone | + [...] | CARDIOLOGY [address] | card ) | | | | [place], | [place], | | | | | [place] [address] | [place] [address] | | | | | [phone] | [phone] | | | | | | | [...] W | | | | | | [place], | | | | | | [place] [address] | | | | | | [phone] | | | | | | | | +--------+ + + + + | 05/01/ | Procedure | Cardiology | | | | 2019 | visit | | | | +--------+ + + + + | 05/01/ | Office | Cardiology | Silvia, | | | 2019 | Visit | | [address] | | | | | | [place], | | | | | | [place] [address] | | | | | | [phone] | | | | | | | | +--------+ + + + + | 05/21/ | Implant | Cardiology | Daljit Singletary, | Remote Device | | 2019 | Monitor | | [address] | Interrogation | | | | | [place], | (Primary Dx); | | | | | [place] [address] | Pacemaker; | | | | | [phone] | Sinoatrial node | | | | | | dysfunction (HCC) | | | | | | with symptomatic | | | | | | bradycardia | +--------+ + + + + documented as of this encounter Visit Diagnoses Not on filedocumented in this encounter"
--- OUTSIDE RECORDS SUMMARY | ~2020-04-15 | XMS | Encounter Summary ---
Demographics + + + | Address | [address] [place] [address] [address] | | | [place] [address] | + + + | Home Phone | | + + + | Preferred Language | Unknown | + + + | Marital Status | | + + + | Latter Day Affiliation | Unknown | + + + [...] [place] | | | | | [address] | | + + + + + Care Team Providers + +------+ + | Care Production Foreman Name | Role | Phone | + +------+ + | Darion Holden DO | PCP | | + +------+ + Encounter Details +--------+------+ + + + | Date | Type | Department | Care Team | Description | +--------+------+ + + + | 02/03/ | Lab | Laboratory at [facility] | | Chest pain; | | 2010 | | [address] | | Bradycardia | | | | [place], [place] | | | | | | [address] | | | | | | [phone] | | | +--------+------+ + + + [...] Way Lab) | [facility] | | [facility] [place] [address] | REGIONAL | | [place] [address] | LABORATORY | + + + + + + + + | Performing | Address | City/State/Zipcode | Phone Number | | Organization | | | | + + + + + | [facility] | [address] | [place] [address] | | | LABORATORY | | | [...] [facility] ([facility]) | | | [facility] [address] | | | [place] [address] | | + + + + + + + + | Performing | Address | City/State/Zipcode | Phone Number | | Organization | | | | + + + + + | [facility] | [address] | [place] [address] | | | LABORATORY | | | [...] | | | DEPARTMENT | | | DOMINICAN | | | OF | | | [...] DEPARTMENT OF | [address] | [place] [address] | | | PATHOLOGY | [address] | | | + + + + + documented in this encounter Visit Diagnoses + + | Diagnosis | + + | Chest pain Chest pain, unspecified | + + | Bradycardia Other specified cardiac dysrhythmias | + + documented in this encounter"
--- OUTSIDE RECORDS SUMMARY | ~2020-04-15 | XMS | Encounter Summary ---
Demographics + + + | Address | [address] | | | [place] [address] | + + + | Home Phone [...] Team Providers + +------+ + | Care Refinish Technician Name | Role | Phone | + +------+ + | Kirk French MD | PCP | | + +------+ + Encounter Details +--------+ + + + + | Date | Type | Department | Care Team | Description | +--------+ + + + + | 04/05/ | Imaging | [facility] | Provider, | | | 2019 | Exam | [facility] | MD [address] | | | | | IMAGING [address] | | | | | [address] [place] | [place] [address] | | | | | [place] [address] | | | | | | [phone] | | | +--------+ + + + [...] W | | | | | | [place], | | | | | | [place] [address] | | | | | | [phone] | | | | | | | | +--------+ + + + + | 05/01/ | Procedure | Cardiology | | | | 2019 | visit | | | | +--------+ + + + + | 05/01/ | Office | Cardiology | Silvia, | | | 2019 | Visit | | [address] | | | | | | [place], | | | | | | [place] [address] | | | | | | [phone] | | | | | | | | +--------+ + + + + | 05/21/ | Implant | Cardiology | Daljit Singletary, | Remote Device | | 2019 | Monitor | | MD [address] [facility] | Interrogation | | | | | [place], | (Primary Dx); | | | | | [place] [address] | Pacemaker; | | | | | [phone] | Sinoatrial node | | | | [...]
--- OUTSIDE RECORDS SUMMARY | ~2020-04-15 | XMS | Encounter Summary ---
Demographics + + + | Address | [address] | | | [place] [address] | + + + | Home Phone [...] Team Providers + +------+ + | Care Physics Technical Officer Name | Role | Phone | [...] | CARDIOLOGY [address] | [address] [place] | (Primary Dx); | | | | [place], | [place], | Tachycardia; | | | | [place] [address] | [place] [id number] | Coronary artery | | | | [phone] | [phone] | disease involving | | | | | | cheesh-na coronary | | | | | | artery of cheesh-na | | | | | | heart [...] | | | | | | [place] [address] | | | | | | [phone] | | | | | | | | +--------+ + + + + | 05/01/ | Procedure | Cardiology | | | | 2019 | visit | | | | +--------+ + + + + | 05/01/ | Office | Cardiology | Silvia, | | | 2019 | Visit | | [address] | | | | | | [place], | | | | | | [place] [address] | | | | | | [phone] | | | | | | | | +--------+ + + + + | 05/21/ | Implant | Cardiology | Daljit Singletary, | Remote Device | 2019 | Monitor | | [facility] | Interrogation | | | | | 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
--- OUTSIDE RECORDS SUMMARY | ~2020-04-15 | XMS | Encounter Summary ---
Demographics + + + | Address | [address] | | | [place] [address] | + + + | Home Phone [...] Team Providers + +------+ + | Care Sports Marketing Specialist Name | Role | Phone | [...] 2019 | | GASTROENTEROLOGY | [address] [place] | | | | | [address] | [address] [place], [place] | | | | | [address] [place], [place] | [address] | | | | | [address] | | | | | | [phone] | | | +--------+ + + + [...] | | | | | | [place] [address] | | | | | | [phone] | | | | | | | [...] | | | | | | [place] [address] | | | | | | [phone] | | | | | | | | +--------+ + + + + | 05/21/ | Implant | Cardiology | Daljit Singletary, | Remote Device | 2019 | Monitor | | [address] | Interrogation | | | | | [place], | (Primary Dx); | | | | | [place] [address] | Pacemaker; | | | | | [phone] | Sinoatrial node | | | | | | dysfunction (HCC) | | | | | | with symptomatic | | | | | | bradycardia | +--------+ + + + + documented as of this encounter Visit Diagnoses Not on filedocumented in this encounter"
--- OUTSIDE RECORDS SUMMARY | ~2020-04-15 | XMS | Encounter Summary ---
Demographics + + + | Address | [address] | | | [place] [address] | + + + | Home Phone [...] Providers + +------+ + | Care Manager Erp Name | Role | Phone | + [...] | Specialty | Gastroenterol | Diagnoses | Hiram, | [facility] | | | Services | ogy | Diarrhea, | Darin | Surgical [address] | | | Required | | unspecified | MD Jacek | [address] | | | | | type | [address] | [place], | | | | | Unintentiona | [place] | [place] [address] | | | | | l weight | [place], [place] | Phone: | | | | | loss | [address] | [phone] | | | | | Procedures | Phone: | Fax: | | | | | [facility] | [phone] | [phone] | | | | | INTRALUMINAL | Fax: | | | | | | | [phone] | | | | | | ESOPHAGUS-IL | | | | | | | EUM W/I&R | | | + + + + + + + Encounter Details +--------+ + + + + | Date | Type | Department | Care Team | Description | +--------+ + + + + | 11/10/ | Orders Only | [facility] [place] | Hiram, Darin | Diarrhea, | | 2019 | | GASTROENTEROLOGY | MD Jacek [address] | unspecified type | | | | [address] | [address] [place] | (Primary Dx); | | | | [address] [place], [place] | [place] [address] | Unintentional weight | | | | [address] | [phone] | loss | | | | [phone] | | | +--------+ + + + [...] + documented as of this encounter Progress Lisa Collins RN - 11/10/2019 8:39 AM PSTDr. Hiram reviewed referral and okay for pill cam; created referral; once approved will contact patient to schedule. Electronically s igned by Lisa Pisano RN at 11/10/2019 10:28 AM PSTdocumented in this encounter Plan of [...] | | | | | | [place] [address] | | | | | | [phone] | | | | | | | | +--------+ + + + + | 05/01/ | Procedure | Cardiology | | | 2019 | visit | | | | +--------+ + + + + | 05/01/ | Office | Cardiology | Silvia, | | | 2019 | Visit | | [address] Vernon [address] | | | | | | [place], | | | | | | [place] [address] | | | | | | [phone] | | | | | | | | +--------+ + + + + | 05/21/ | Implant | Cardiology | Daljit Singletary, | Remote Device | | 2019 | Monitor | | [address] | Interrogation | | | | | [place], | (Primary Dx); | | | | | [place] [address] | Pacemaker; | | | | | [phone] | Sinoatrial node | | | | | | dysfunction ([facility]) | | | | | | with symptomatic | | | | | | bradycardia | +--------+ + + + + + + +--------+ + + | Name | Type | Priori | Associated Diagnoses | Order Schedule | | | | ty | | | + + +--------+ + + | Pill Cam Referral | Outpatient | Routin | Diarrhea, | Expected: 11/10/2019 | | | Referral | e | unspecified type | (Approximate), | | | | | Unintentional weight | Expires: 11/10/2020 | | | | | loss | | + + +--------+ + + documented as of this encounter Visit Diagnoses + + | Diagnosis | + + | Diarrhea, unspecified type - Primary | + + | Unintentional weight loss Loss of weight | + + documented in this encounter"
--- OUTSIDE RECORDS SUMMARY | ~2020-04-15 | XMS | Encounter Summary ---
Demographics + + + | Address | [address] | | | [place] [address] | + + + | Home Phone [...] Providers + +------+ + | Care Clinical Services Manager Name | Role | Phone [...] | | | | CENTER [address] | [address] [place] | | | | | [place], [place] | [place] [address] | | | | | [address] | [phone] | | | | | [phone] | | | +--------+ + + + [...] sent through Care Everywhere.Diarrhea, Unkno wn Cause (Slovenian)documented in this encounter Medications at [...] | | | | | | | [place] coronary | | | | | | | artery of [place] | | | | | | | [...] W | | | | | | [place], | | | | | | [place] [address] | | | | | | [phone] | | | | | | | | +--------+ + + + + | 05/01/ | Procedure | Cardiology | | | | 2019 | visit | | | | +--------+ + + + + | 05/01/ | Office | Cardiology | Silvia, | | | 2019 | Visit | | [address] | | | | | | [place], | | | | | | [place] [address] | | | | | | [phone] | | | | | | | | +--------+ + + + + | 05/21/ | Implant | Cardiology | Daljit Singletary, | Remote Device | | 2020 | Monitor | | MD [facility] | Interrogation | | | | | [place], | (Primary Dx); | | | | | [place] [address] | Pacemaker; | | | | | [phone] | Sinoatrial node | | | | [...] W?MRN: | | | | | | [id number] | | | [id number] | | | riteri | | | [...] | | | St. | | | [place] | | | y | | | [...] | | | St. | | | [place] | | | y | | | [...] | | | St. | | | [place] | | | y H. | | [...] | | | St. | | | [place] | | | y H. | | [...] | | | M.D. 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 | | [address] | | | - LABORATORY | | [...] [address] | [place] | [phone] | | [facility] | | [address] | | | - LABORATORY | | [...] [address] | [place] | [phone] | | [facility] | | [address] | | | - LABORATORY | | [...] + | [facility] | [address] | [place] | [phone] | | [facility] | | [address] | | | - LABORATORY | | [...] [address] | [place] | [phone] | | [facility] | | [address] | | | - LABORATORY | | [...] | mL/min/1.73m2 | [place] | | | LUXEMBOURGER | RATE,ESTIMATED | | MEDICAL | | | | mL/min/1.60i5Dfpl than | | CENTER - | | [...] + | [facility] | [address] | [place] | [phone] | | [facility] | | [address] | | | - LABORATORY | | [...] [address] | [place] | [phone] | | [facility] | | [address] | | | - LABORATORY | | [...] - 1.030 | [facility] | | | [place], | | | [facility] [place] | | [...] [address] | [place] | [phone] | | [facility] | | [address] | | | - LABORATORY | | [...]
--- OUTSIDE RECORDS SUMMARY | ~2020-04-15 | XMS | Clinical Summary ---
Demographics + + + | Address | [address] | | | [place] [address] | + + + | Home Phone | | + + + | Preferred Language | Unknown | + + + | Marital Status | | + + + | Hindu Affiliation | 1013 | + + + | Race | Unknown | + + + | Ethnic Group | Unknown | + + + Author + + + | Author | [facility] (Historical as of | | | 07-08-19) | + + + | Organization | [facility] (Historical as of | | | 07-08-19) [...] Providers + +------+ + | Care Head Teller Name | Role | Phone | [...] + | AUTO INSURANCE | AUTO | [id number] | | | | | | INSURA | | | | | | | NCE | | | | | | | GENERI | | | | | | | C | | | | | + +--------+ +------+-------+ + | AUTO INSURANCE | AUTO | [id number] | | | | | | INSURA | [id number] | | | | | | NCE | | | | | | | GENERI | | | | | | | C | | | | | + +--------+ +------+-------+ + | MEDICARE | MEDICA | [id number] | | | [address] | | | RE | | | | [place], [place] [address] | | | IP-OP | | | | | + +--------+ +------+-------+ + | [facility] | JONANCY | [id number] | | | | | | | [...] | Self | [birth year] | Home: | [address] | | | al/Fam | | [address] | [address] | [address] [place], [place] | | | roxanne | | | [address] | [address] | + +--------+ +--------+ + + | AMILCAR GAY | Third | Self | [birth year] | Home: | [address] | | | Democrat | | 9 | +- | [place], [place] | | | Liabil | | | [phone] | [address] | | | ity | | | | | + +--------+ +--------+ + + | AMILCAR GAY | Third | Self | [birth year] | Home: | [address] | | | Democrat | | 1960 | +- | [place], [place] | | | Liabil | | | [phone] | [address] | | | ity | | | | | + +--------+ +--------+ + +
--- OUTSIDE RECORDS SUMMARY | ~2020-04-15 | XMS | Encounter Summary ---
Demographics + + + | Address | [address] | | | [place] [address] | + + + | Home Phone [...] Team Providers + +------+ + | Care Gamemaster Name | Role | Phone | + +------+ + | Darion Holden DO | PCP | | + +------+ + Encounter Details +--------+ + + + + | Date | Type | Department | Care Team | Description | +--------+ + + + + | 08/05/ | Hospital | [facility] | Emmanuel Daniel MD | | | 2009 | Encounter | MED CTR XRAY [address] | [address] | | | | | [place] | [address] [place], [place] | | | | | [place] [address] | [address] | | | | | [phone] | | | +--------+ + + + [...] W | | | | | | [place], | | | | | | [place] [address] | | | | | | [phone] | | | | | | | | +--------+ + + + + | 05/01/ | Procedure | Cardiology | | | | 2019 | visit | | | | +--------+ + + + + | 05/01/ | Office | Cardiology | Silvia, | | | 2019 | Visit | | [address] | | | | | | [place], | | | | | | [place] [address] | | | | | | [phone] | | | | | | | | +--------+ + + + + | 05/21/ | Implant | Cardiology | Daljit Singletary, | Remote Device | | 2019 | Monitor | | [address] [place] | Interrogation | | | | | [place], | (Primary Dx); | | | | | [place] [address] | Pacemaker; | | | | | [phone] | Sinoatrial node | | | | | | dysfunction (HCC) | | | | | | with symptomatic | | | | | | bradycardia | +--------+ + + + + documented as of this encounter Visit Diagnoses Not on filedocumented in this encounter"
--- OUTSIDE RECORDS SUMMARY | ~2020-04-15 | XMS | Encounter Summary ---
Demographics + + + | Address | [address] | | | [place] [address] | + + + | Home Phone [...] Providers + +------+ + | Care Health Administrator Name | Role | Phone | + +------+ + PCP | Unavailable | + +------+ + Encounter Details +--------+ + + + + | Date | Type | Department | Care Team | Description | +--------+ + + + + | 10/26/ | Hospital | [facility] | | | | 1994 | Encounter | MED CTR EMERGENCY | | | | | | CENTER [address] | | | | | | [place] | | | | | | [address] | | | | | | [phone] | | | +--------+ + + + [...] | | | | | | [place] [address] | | | | | | [phone] | | | | | | | | +--------+ + + + + | 05/01/ | Procedure | Cardiology | | | | 2019 | visit | | | | +--------+ + + + + | 05/01/ | Office | Cardiology | Silvia, | | | 2019 | Visit | | [address] | | | | | | [place], | | | | | | [place] [address] | | | | | | [phone] | | | | | | | | +--------+ + + + + | 05/21/ | Implant | Cardiology | Daljit Singletary, | Remote Device | 2019 | Monitor | | [address] [place] | Interrogation | | | | | [place], | (Primary Dx); | | | | | [place] [address] | Pacemaker; | | | | | [phone] | Sinoatrial node | | | | | | dysfunction (HCC) | | | | | | with symptomatic | | | | | | bradycardia | +--------+ + + + + documented as of this encounter Visit Diagnoses Not on filedocumented in this encounter"
--- OUTSIDE RECORDS SUMMARY | ~2020-04-15 | XMS | Encounter Summary ---
Demographics + + + | Address | [address] | | | [place] [address] | + + + | Home Phone [...] Team Providers + +------+ + | Care Steel Fitter Name | Role | Phone | + +------+ + | Michael Aamnda DO | PCP | | + +------+ + Reason for Visit + + + | Reason | Comments | + + + | Eye Problem | | + + + Encounter Details +--------+ + + + + | Date | Type | Department | Care Team | Description | +--------+ + + + + | 06/22/ | Telephone | [facility] | Vasiliy Michael Kelsey, | Eye Problem | | 2012 | | MEDICINE [place] | DO [address] | | | | | [address] | [place] | | | | | [place] | [address] | | | | | [address] | | | | | | [phone] | | | +--------+ + + + [...] W | | | | | | [place], | | | | | | [place] [address] | | | | | | [phone] | | | | | | | | +--------+ + + + + | 05/01/ | Procedure | Cardiology | | | | 2019 | visit | | | | +--------+ + + + + | 05/01/ | Office | Cardiology | Silvia, | | 2019 | Visit | | [address] | | | | | | [place], | | | | | | [place] [address] | | | | | | [phone] | | | | | | | | +--------+ + + + + | 05/21/ | Implant | Cardiology | Daljit Singletary, | Remote Device | | 2019 | Monitor | | [address] [facility] | Interrogation | | | | | [place], | (Primary Dx); | | | | | [place] [address] | Pacemaker; | | | | | [phone] | Sinoatrial node | | | | | | dysfunction (HCC) | | | | | | with symptomatic | | | | | | bradycardia | +--------+ + + + + documented as of this encounter Visit Diagnoses Not on filedocumented in this encounter"
--- OUTSIDE RECORDS SUMMARY | ~2020-04-15 | XMS | Encounter Summary ---
Demographics + + + | Address | [address] | | | [place] [address] | + + + | Home Phone [...] Providers + +------+ + | Care Property Management Coordinator Name | Role | Phone | + +------+ + | Michael Amanda DO | PCP | | + +------+ + Encounter Details +--------+ + + + + | Date | Type | Department | Care Team | Description | +--------+ + + + + | 02/27/ | Hospital | [facility] | Shelly Carter DO | Chest pain; | | 2013 - | Encounter | [facility] | [address] | Pacemaker; | | | | CLINICAL DECISION | [place] [address] | Mild dehydration | | 02/28/ | | [address] [facility] | [phone] | | | 2013 | | [place], [place] | | | | | | [address] | | | | | | [phone] | | | +--------+ + + + [...] 10:45 AM PDT Discharge Summaries by Dev Monatno MD at 02/28/14 1045 Author: Dev Montano MD Service: Hospitalist Author Type: Physician Filed: 03/06/14 2252 Date of Service: 02/28/141044 Status: Addendum Cook'S Assistant: Dev Montano MD (Physician) Related Notes: Original Note by Dev Montano MD (Physician) filed at 02/28/14 1107 Patient ID: Pina Gay [id number] y.o. 1960 Admit date: 02/27/2014 Discharge [...] - 99 mg/dL Final Testing performed at [address] [address] BUN Date Value Range Status 02/28/2014 15 8 - 25 mg/dL Final Testing performed at [address] [address] CREATININE Date Value Range Status 02/28/2014 0.74 0.70 - 1.30 mg/dL Final Testing performed at [address] [address] BUN/CREAT Date Value Range Status 02/28/2014 20 Final Testing performed at [address] [address] TOTAL PROTEIN Date Value Range Status 02/28/2014 6.1* 6.3 - 8.2 g/dL Final Testing performed at [address] [address] GLOBULIN Date Value Range Status 02/28/2014 2.1 1.3 - 4.9 g/dL Final Testing performed at [address] [address] TBIL Date Value Range Status 02/28/2014 1.4 0.1 - 1.5 mg/dL Final Testing performed at [address] [address] ALT Date Value Range Status 02/28/2014 27 10 - 65 U/L Final Testing performed at [address] [address] AST Date Value Range Status 02/28/2014 31 10 - 45 U/L Final Testing performed at [address] [address] SODIUM Date Value Range Status 02/28/2014 138 135 - 143 mmol/L Final Testing performed at [facility], [address] [place] [address] POTASSIUM Date Value Range Status 02/28/2014 3.4* 3.5 - 4.9 mmol/L Final Testing performed at [facility], [address] [place] [address] CHLORIDE Date Value Range Status 02/28/2014 108 99 - 109 mmol/L Final Testing performed at [address] [address] CO2 Date Value Range Status 02/28/2014 21* 23 - 32 mmol/L Final Testing performed at [facility], [address] [place] [address] ANION GAP AGAP Date Value Range Status 02/28/2014 12 5 - 20 mmol/L Final Testing performed at [facility], [address] [place] [address] Xr Chest Pa And Lateral 02/27/2014 PINA [...] 3-D reconstructi ons were performed using the [employer] 3-D software and sent to PACS. Oral Contrast: None I V contrast: 100 mL IsoVue 370 COMPARISON: None. FINDINGS: CHEST: The biochemistry technician view shows a p acemaker via left [...] pacemaker, who [facility] complaining of chest pain which started [...] catheterization recently done by Dr. Singletary in [place] in December 2013 at [facility] which showed minimal occlusive disease. One artery was 25% and another was 15%, per patient. I requested official cardiac catheterization report from [place] and still waiting for it to come. 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 You may get these medications from any pharmacy. amLODIPine 5 MG tablet pantoprazole 40 MG tablet Activity: activity as tolerated Diet: cardiac diet Wound Care: not applicable There are no Patient Instructions on file for this visit. Per Pt None Chaka Ortiz MD [address] [facility] [id number] In 1 week Ariel Pulido MD [address] [facility] [phone] In 1 week Daljit Singletary MD [address] [facility] [facility] [address] [facility] [address] In 1 week Signed: DEV MONTANO 02/28/2014 10:45 AM Addendum:ADDENDUM I just received a cardiac catheterization report from [facility], [place], which was done on December 25, 2013. [...] + + + +---------+ + + | [place]-3 Fatty | CAPS, one capsule by | [...] 02/28/141211 Date of Service: 02/28/141210 Status: Signed Cook'S Assistant: Bijal Sosa RN (Registered Nurse) Discharge instructions [...] 02/28/1411 Date of Service: 02/28/1411 Status: Signed Cook'S Assistant: Mary Wetzel RPH (Pharmacist) Clinical Pharmacy Note: [...] | | | | | | [place] [address] | | | | | | [phone] | | | | | | | | +--------+ + + + + | 05/01/ | Procedure | Cardiology | | | | 2019 | visit | | | | +--------+ + + + + | 05/01/ | Office | Cardiology | Silvia | | | 2019 | Visit | | [address] | | | | | | [place], | | | | | | [place] [address] | | | | | | [phone] | | | | | | | | +--------+ + + + + | 05/21/ | Implant | Cardiology | Daljit Singletary, | Remote Device | | 2020 | Monitor | | [address] | Interrogation | | | | | [facility], | (Primary Dx); | | | | | [place] [address] | Pacemaker; | | | | | [phone] | Sinoatrial node | | | | | | dysfunction ([facility]) | | [...] EXTERNAL | | | | performed at [facility];[address] | | LAB | | | | [address];[place], [place] | | | | | | [address] | | | | + + + [...] | | | | | performed at [facility];[address] | | | | | | [address] [facility];[place], [place] | | | | | | [address] | | | | + + + [...] + +---------+ + + External Lab: MONET (02/28/2014 5:45 AM PDT) + + + [...] | | | | | [place] [address] | | | | + + + + + + | Red Blood | 4.68Comment: Testing | 4.20 - 5.70 | EXTERNAL | | | Cells | performed at [facility], [address] | M/uL | LAB | | | Counted | [address], | | | | | | [place] [address] | | | | + + + + + + | Hemoglobin | 15.3Comment: Testing | 13.2 - 17.0 | EXTERNAL | | | | performed at [facility], [address] | g/dL | LAB | | | | [address], | | | | | | [place] [address] | | | | + + + + + + | Hematocrit, | 44.2Comment: Testing | 39.0 - 50.0 % | EXTERNAL | | | POC | performed at [facility], [address] | | LAB | | | | [address], | | | | | | [place] [address] | | | | + + + + + + | MCV | 94.5Comment: Testing | 80.0 - 100.0 fl | EXTERNAL | | | | performed at [facility], [address] | | LAB | | | | [address], | | | | | | [place] [address] | | | | + + + + + + | MCH | 32.6Comment: Testing | 27.0 - 34.0 pg | EXTERNAL | | | | performed at [facility], [address] | | LAB | | | | [address], | | | | | | [place] [address] | | | | + + + + + + | MCHC | 34.5Comment: Testing | 32.0 - 35.5 | EXTERNAL | | | | performed at [facility], [address] | g/dL | LAB | | | | [employer] [address], | | | | | | [place] [address] | | | | + + + + + + | RDW-CV | 45.5Comment: Testing | 37 - 53 fl | EXTERNAL | | | | performed at [facility], [address] | | LAB | | | | [address], | | | | | | [place] [address] | | | | + + + + + + | Platelet | 156Comment: Testing | 150 - 400 K/uL | EXTERNAL | | | Count | performed at [facility], [address] | | LAB | | | Plasma | [address], | | | | | | [place] [address] | | | | + + + + + + | MPV | 8.8Comment: Testing | fl | EXTERNAL | | | | performed at [facility], [address] | | LAB | | | | [address], | | | | | | [place] [address] | | | | + + + + + + | Differentia | AUTOMATEDComment: | | EXTERNAL | | | l Type | Testing performed at | | LAB | | | | [facility], [address] | | | | | | [place] | | | | | | [address] | | | | + + + + + + | % Segmented | 57.7Comment: Testing | % | EXTERNAL | | | | performed at [facility], [address] | | LAB | | | Neutrophils | [address], | | | | | | [place] [address] | | | | + + + + + + | % | 31.8Comment: Testing | % | EXTERNAL | | | Lymphocytes | performed at [facility], [address] | | LAB | | | | [address], | | | | | | [place] [address] | | | | + + + + + + | % Monocytes | 9.2Comment: Testing | % | EXTERNAL | | | | performed at [facility], [address] | | LAB | | | | [address], | | | | | | [place] [address] | | | | + + + + + + | % | 0.9Comment: Testing | % | EXTERNAL | | | Eosinophils | performed at [facility], [address] | | LAB | | | | [address], | | | | | | [place] [address] | | | | + + + + + + | % Basophils | 0.4Comment: Testing | % | EXTERNAL | | | | performed at [facility], [address] | | LAB | | | | [address], | | | | | | [place] [address] | | | | + + + + + + | Absolute | 3.9Comment: Testing | 1.9 - 7.4 K/uL | EXTERNAL | | | Segmented | performed at [facility], [address] | | LAB | | | Neutrophils | [address], | | | | | | [place] [address] | | | | + + + + + + | Absolute | 2.1Comment: Testing | 1.0 - 3.9 K/uL | EXTERNAL | | | Lymphocytes | performed at [facility], [address] | | LAB | | | | [address], | | | | | | [place] [address] | | | | + + + + + + | Absolute | 0.6Comment: Testing | 0 - 0.8 K/uL | EXTERNAL | | | Monocytes | performed at [facility], [address] | | LAB | | | | [address], | | | | | | [place] [address] | | | | + + + + + + | Absolute | 0.1Comment: Testing | 0 - 0.5 K/uL | EXTERNAL | | | Eosinophils | performed at [facility], [address] | | LAB | | | | [address], | | | | | | [place] [address] | | | | + + + + + + | Absolute | 0.0Comment: Testing | 0 - 0.1 K/uL | EXTERNAL | | | Basophils | performed at [facility], [address] | | LAB | | | | [address], | | | | | | [place] [address] | | | | + + + [...] EXTERNAL | | | | performed at [facility], [address] | | LAB | | | | [address], | | | | | | [place] [address] | | | | + + + [...] EXTERNAL | | | | performed at [facility], [address] | | LAB | | | | [address], | | | | | | [place] [address] | | | | + + + [...] EXTERNAL | | | | performed at [facility];[address] | | LAB | | | | [address];[place] | | | | | | [address] | | | | + + + [...] | | | | | [place] [address] | | | | + + + + + + | Triglycerid | 37Comment: Testing | mg/dL | EXTERNAL | | | es | performed at [facility], [address] | | LAB | | | | [address], | | | | | | [place] [address] | | | | + + + + + + | HDL | 35 (L)Comment: Testing | mg/dL | EXTERNAL | | | | performed at [facility], [address] | | LAB | | | | [address], | | | | | | [place] [address] | | | | + + + + + + | LDL, | 67Comment: Testing | mg/dL | EXTERNAL | | | Calculated | performed at [facility], [address] | | LAB | | | | [address], | | | | | | [place] [address] | | | | + + + [...] | | | | | [place] [address] | | | | + + + + + + | K | 3.4 (L)Comment: Testing | 3.5 - 4.9 | EXTERNAL | | | | performed at [facility], [address] | mmol/L | LAB | | | | [address], | | | | | | [place] [address] | | | | + + + + + + | Cl | 108Comment: Testing | 99 - 109 mmol/L | EXTERNAL | | | | performed at [facility], [address] | | LAB | | | | [address], | | | | | | [place] [address] | | | | + + + + + + | CO2 | 21 (L)Comment: Testing | 23 - 32 mmol/L | EXTERNAL | | | | performed at [facility], [address] | | LAB | | | | [address], | | | | | | [place] [address] | | | | + + + + + + | Anion Gap | 12Comment: Testing | 5 - 20 mmol/L | EXTERNAL | | | | performed at [facility], [address] | | LAB | | | | [address], | | | | | | [place] [address] | | | | + + + + + + | Glucose, | 107 (H)Comment: Testing | 65 - 99 mg/dL | EXTERNAL | | | Fasting | performed at [facility], [address] | | LAB | | | | [address], | | | | | | [place] [address] | | | | + + + + + + | BUN | 15Comment: Testing | 8 - 25 mg/dL | EXTERNAL | | | | performed at [facility], [address] | | LAB | | | | [address], | | | | | | [place] [address] | | | | + + + + + + | Creatinine | 0.74Comment: Testing | 0.70 - 1.30 | EXTERNAL | | | | performed at [facility], [address] | mg/dL | LAB | | | | [address], | | | | | | [place] [address] | | | | + + + + + + | BUN/Creatin | 20Comment: Testing | | EXTERNAL | | | ine Ratio | performed at [facility], [address] | | LAB | | | | [address], | | | | | | [place] [address] | | | | + + + + + + | Calcium | 8.9Comment: Testing | 8.5 - 10.2 | EXTERNAL | | | | performed at [facility], [address] | mg/dL | LAB | | | | [address], | | | | | | [place] [address] | | | | + + + + + + | Protein, | 6.1 (L)Comment: Testing | 6.3 - 8.2 g/dL | EXTERNAL | | | Total | performed at [facility], [address] | | LAB | | | | [employer], | | | | | | [place] [address] | | | | + + + + + + | Albumin | 4.0Comment: Testing | 3.6 - 5.0 g/dL | EXTERNAL | | | | performed at [facility], [address] | | LAB | | | | [address], | | | | | | [place] [address] | | | | + + + + + + | Globulin | 2.1Comment: Testing | 1.3 - 4.9 g/dL | EXTERNAL | | | | performed at [facility], [address] | | LAB | | | | [address], | | | | | | [place] [address] | | | | + + + + + + | A/G Ratio | 1.9Comment: Testing | 1.0 - 2.4 | EXTERNAL | | | | performed at [facility], [address] | | LAB | | | | [address], | | | | | | [place] [address] | | | | + + + + + + | Bilirubin | 1.4Comment: Testing | 0.1 - 1.5 mg/dL | EXTERNAL | | | Total | performed at [facility], [address] | | LAB | | | | [address], | | | | | | [place], [place] [address] | | | | + + + + + + | ALP, | 46Comment: Testing | 35 - 115 U/L | EXTERNAL | | | External | performed at [facility], [address] | | LAB | | | | [address], | | | | | | [place] [address] | | | | + + + + + + | AST | 31Comment: Testing | 10 - 45 U/L | EXTERNAL | | | | performed at [facility], [address] | | LAB | | | | [address], | | | | | | [place] [address] | | | | + + + + + + | ALT | 27Comment: Testing | 10 - 65 U/L | EXTERNAL | | | | performed at [facility], [address] | | LAB | | | | [address], | | | | | | [place] [address] | | | | + + + [...] | | | | | | at [facility], [address] | | | | | | [address], | | | | | | [place] [address] | | | | + + + [...] + | Historically converted procedure from [facility] environment | EXTERNAL LAB | + + + + +---------+ + + | Performing | Address | City/State/Zipcode | Phone Number | | Organization | | | | + +---------+ + + | EXTERNAL LAB | | | | + +---------+ + + TRIP-JENNY (02/28/2014 12:24 AM PDT) + + + + + -+ | Component | Value | Ref Range | Performed | Pathologist | | | | | At | Signature | + + + + + -+ | CK-MB | 6.7 (H)Comment: Testing | 0.5 - 3.6 ng/mL | EXTERNAL | | | | performed at [facility];[address] | | LAB | | | | [address];[place], [place] | | | | | | [address] | | | | + + + [...] | | | | | performed at [facility];[address] | | | | | | [facility];[place], [place] | | | | | | [address] | | | | + + + [...] EXTERNAL | | | | performed at [facility];[address] | | LAB | | | [address];[place] | | | | | | [address] | | | | + + + [...] were | | | performed using the [employer] 3-D software and sent to PACS. Oral | | | Contrast: None IV contrast: 100 mL IsoVue 370 COMPARISON: None. | | | FINDINGS: CHEST: The biochemistry technician view shows a pacemaker via left | [...] Conversion - 07/07/2019 10:30 PM PDT [facility] | | CONTRAST02/27/2014 11:21 [...] reconstructions were performed | | using the [employer] 3-D software and sent to PACS. Oral Contrast: NoneIV contrast: 100 | | mL IsoVue 370 COMPARISON:None. FINDINGS: CHEST: The biochemistry technician view shows a pacemaker via | | [...] EXTERNAL | | | | performed at [facility];[address] | | LAB | | | | [address];[place] | | | | | | [address] | | | | + + + + + -+ | Red Blood | 5.19Comment: Testing | 4.20 - 5.70 | EXTERNAL | | | Cells | performed at [facility];[address] | M/uL | LAB | | | Counted | [address];[place] | | | | | | [address] | | | | + + + + + -+ | Hemoglobin | 16.8Comment: Testing | 13.2 - 17.0 | EXTERNAL | | | | performed at [facility];[address] | g/dL | LAB | | | | [address];[place] | | | | | | [address] | | | | + + + + + -+ | Hematocrit, | 49.5Comment: Testing | 39.0 - 50.0 % | EXTERNAL | | | POC | performed at [facility];[address] | | LAB | | | | [address];[place] | | | | | | [address] | | | | + + + + + -+ | MCV | 95.4Comment: Testing | 80.0 - 100.0 fl | EXTERNAL | | | | performed at [facility];[address] | | LAB | | | | [address];[place] | | | | | | [address] | | | | + + + + + -+ | MCH | 32.4Comment: Testing | 27.0 - 34.0 pg | EXTERNAL | | | | performed at [facility];[address] | | LAB | | | | [address];[place] | | | | | | [address] | | | | + + + + + -+ | MCHC | 34.0Comment: Testing | 32.0 - 35.5 | EXTERNAL | | | | performed at [facility];[address] | g/dL | LAB | | | | [address];[place] | | | | | | [address] | | | | + + + + + -+ | RDW-CV | 46.8Comment: Testing | 37 - 53 fl | EXTERNAL | | | | performed at [facility];[address] | | LAB | | | | [address];[place] | | | | | | [address] | | | | + + + + + -+ | Platelet | 179Comment: Testing | 150 - 400 K/uL | EXTERNAL | | | Count | performed at [facility];[address] | | LAB | | | Plasma | [address];[place] | | | | | | [address] | | | | + + + + + -+ | MPV | 8.6Comment: Testing | fl | EXTERNAL | | | | performed at [facility];[address] | | LAB | | | | [address];[place] | | | | | | [address] | | | | + + + + + -+ | Differentia | AUTOMATEDComment: | | EXTERNAL | | | l Type | Testing performed at | | LAB | | | | [facility];[address];[place] [address] | | | | + + + + + -+ | % Segmented | 62.4Comment: Testing | % | EXTERNAL | | | | performed at [facility];[address] | | LAB | | | Neutrophils | [address];[place] | | | | | | [address] | | | | + + + + + -+ | % | 26.3Comment: Testing | % | EXTERNAL | | | Lymphocytes | performed at [facility];[address] | | LAB | | | | [address];[place] | | | | | | [address] | | | | + + + + + -+ | % Monocytes | 10.3Comment: Testing | % | EXTERNAL | | | | performed at [facility];[address] | | LAB | | | | [address];[place] | | | | | | [address] | | | | + + + + + -+ | % | 0.5Comment: Testing | % | EXTERNAL | | | Eosinophils | performed at [facility];[address] | | LAB | | | | [address];[place] | | | | | | [address] | | | | + + + + + -+ | % Basophils | 0.5Comment: Testing | % | EXTERNAL | | | | performed at [facility];[address] | | LAB | | | | [address];[place] | | | | | | [address] | | | | + + + + + -+ | Absolute | 6.3Comment: Testing | 1.9 - 7.4 K/uL | EXTERNAL | | | Segmented | performed at [facility];[address] | | LAB | | | Neutrophils | [address];[place] | | | | | | [address] | | | | + + + + + -+ | Absolute | 2.7Comment: Testing | 1.0 - 3.9 K/uL | EXTERNAL | | | Lymphocytes | performed at [facility];[address] | | LAB | | | | [address];[place] | | | | | | [address] | | | | + + + + + -+ | Absolute | 1.0 (H)Comment: Testing | 0 - 0.8 K/uL | EXTERNAL | | | Monocytes | performed at [facility];[address] | | LAB | | | | [address];[place] | | | | | | [address] | | | | + + + + + -+ | Absolute | 0.0Comment: Testing | 0 - 0.5 K/uL | EXTERNAL | | | Eosinophils | performed at [facility];[address] | | LAB | | | | [address];[place] | | | | | | [address] | | | | + + + + + -+ | Absolute | 0.1Comment: Testing | 0 - 0.1 K/uL | EXTERNAL | | | Basophils | performed at [facility];[address] | | LAB | | | | [address];[place] | | | | | | [address] | | | | + + + + + -+ | Na | 139Comment: Testing | 135 - 143 | EXTERNAL | | | | performed at [facility];[address] | mmol/L | LAB | | | | [address];[place] | | | | | | [address] | | | | + + + + + -+ | K | 3.4 (L)Comment: Testing | 3.5 - 4.9 | EXTERNAL | | | | performed at [facility];[address] | mmol/L | LAB | | | | [address];[place] | | | | | | [address] | | | | + + + + + -+ | Cl | 108Comment: Testing | 99 - 109 mmol/L | EXTERNAL | | | | performed at [facility];[address] | | LAB | | | | [address];[place] | | | | | | [address] | | | | + + + + + -+ | CO2 | 21 (L)Comment: Testing | 23 - 32 mmol/L | EXTERNAL | | | | performed at [facility];[address] | | LAB | | | | [address];[place] | | | | | | [address] | | | | + + + + + -+ | Anion Gap | 14Comment: Testing | 5 - 20 mmol/L | EXTERNAL | | | | performed at [facility];[address] | | LAB | | | | [address];[place] | | | | | | [address] | | | | + + + + + -+ | Glucose, | 124 (H)Comment: Testing | 65 - 99 mg/dL | EXTERNAL | | | Fasting | performed at [facility];[address] | | LAB | | | | [address];[place] | | | | | | [address] | | | | + + + + + -+ | BUN | 20Comment: Testing | 8 - 25 mg/dL | EXTERNAL | | | | performed at [facility];[address] | | LAB | | | | [address];[place] | | | | | | [address] | | | | + + + + + -+ | Creatinine | 0.97Comment: Testing | 0.70 - 1.30 | EXTERNAL | | | | performed at [facility];[address] | mg/dL | LAB | | | | [address];[place] | | | | | | [address] | | | | + + + + + -+ | BUN/Creatin | 21Comment: Testing | | EXTERNAL | | | ine Ratio | performed at [facility];[address] | | LAB | | | | [address];[place] | | | | | | [address] | | | | + + + + + -+ | Calcium | 8.7Comment: Testing | 8.5 - 10.2 | EXTERNAL | | | | performed at [facility];[address] | mg/dL | LAB | | | | [address];[place] | | | | | | [address] | | | | + + + + + -+ | Protein, | 7.6Comment: Testing | 6.3 - 8.2 g/dL | EXTERNAL | | | Total | performed at [facility];[address] | | LAB | | | | [address];[place] | | | | | | [address] | | | | + + + + + -+ | Albumin | 4.2Comment: Testing | 3.6 - 5.0 g/dL | EXTERNAL | | | | performed at [facility];[address] | | LAB | | | | [address];[place] | | | | | | [address] | | | | + + + + + -+ | Globulin | 3.4Comment: Testing | 1.3 - 4.9 g/dL | EXTERNAL | | | | performed at [facility];[address] | | LAB | | | | [address];[place] | | | | | | [address] | | | | + + + + + -+ | A/G Ratio | 1.2Comment: Testing | 1.0 - 2.4 | EXTERNAL | | | | performed at [facility];[address] | | LAB | | | | [address];[place] | | | | | | [address] | | | | + + + + + -+ | Bilirubin | 1.1Comment: Testing | 0.1 - 1.5 mg/dL | EXTERNAL | | | Total | performed at [facility];[address] | | LAB | | | | [address];[place] | | | | | | [address] | | | | + + + + + -+ | ALP, | 77Comment: Testing | 35 - 115 U/L | EXTERNAL | | | External | performed at [facility];[address] | | LAB | | | | [address];[place] | | | | | | [address] | | | | + + + + + -+ | AST | 35Comment: Testing | 10 - 45 U/L | EXTERNAL | | | | performed at [facility];[address] | | LAB | | | | [address];[place] | | | | | | [address] | | | | + + + + + -+ | ALT | 43Comment: Testing | 10 - 65 U/L | EXTERNAL | | | | performed at [facility];[address] | | LAB | | | | [address];[place] | | | | | | [address] | | | | + + + [...] | | | | | | at [facility];[address] | | | | | [address];[place] [address] | | | | + + + + + -+ | CK, Total | 510 (H)Comment: Testing | 55 - 400 U/L | EXTERNAL | | | | performed at [facility];[address] | | LAB | | | | [address];[place] | | | | | | [address] | | | | + + + [...] | | | | | performed at [facility];[address] | | | | | | [address];[place] | | | | | | [address] | | | | + + + + + -+ | aPTT, | 24Comment: Testing | 23 - 32 seconds | EXTERNAL | | | Patient | performed at [facility];[address] | | LAB | | | | [address];[place] | | | | | | [address] | | | | + + + + + -+ | CK-MB | 9.3 (H)Comment: Testing | 0.5 - 3.6 ng/mL | EXTERNAL | | | | performed at [facility];[address] | | LAB | | | | [address] [facility];[place], [place] | | | | | | [address] | | | | + + + [...] EXTERNAL | | | | performed at [facility];888 | uIU/mL | LAB | | | | W[place] Hogan;[place] | | | | | | [address] | | | | + + + [...] EXTERNAL | | | | performed at [facility];888 | | LAB | | | | Wally Hogan;[place], [place] | | | | | | [address] | | | | + + + [...] of | | | | | | -JAN-2010 | | | | | | 19:40,Electronic [...] (500), | | | | | | 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
--- OUTSIDE RECORDS SUMMARY | ~2020-04-15 | XMS | Encounter Summary ---
Demographics + + + | Address | [address] | | | [place] [address] | + + + | Home Phone [...] Team Providers + +------+ + | Care Remelter Name | Role | Phone | + [...] [address] | | | | | [place], | [place], | | | | | [place] [address] | [place] [address] | | | | | [phone] | [phone] | | | | | | | [...] W | | | | | | [place], | | | | | | [place] [address] | | | | | | [phone] | | | | | | | | +--------+ + + + + | 05/01/ | Procedure | Cardiology | | | | 2019 | visit | | | | +--------+ + + + + | 05/01/ | Office | Cardiology | [place], | | | 2019 | Visit | | [place] W | | | | | | [place], | | | | | | [place] [address] | | | | | | [phone] | | | | | | | | +--------+ + + + + | 05/21/ | Implant | Cardiology | Daljit Singletary, | Remote Device | | 2020 | Monitor | | [facility] [place] | Interrogation | | | | | [place], | (Primary Dx); | | | | | [place] [address] | Pacemaker; | | | | | [phone] | Sinoatrial node | | | | [...] | EXTERNAL LAB: YULIANA | Routin | 04/11/2018 | | Results [...]
--- OUTSIDE RECORDS SUMMARY | ~2020-04-15 | XMS | Encounter Summary ---
Demographics + + + | Address | [address] | | | [place] [address] | + + + | Home Phone [...] Team Providers + +------+ + | Care Pilates Coordinator Name | Role | Phone | [...] [address] | | | | | [place], | [place], | | | | | [place] [address] | [place] [address] | | | | | [phone] | [phone] | | | | | | | [...] W | | | | | | [place], | | | | | | [place] [address] | | | | | | [phone] | | | | | | | | +--------+ + + + + | 05/01/ | Procedure | Cardiology | | | | 2019 | visit | | | | +--------+ + + + + | 05/01/ | Office | Cardiology | [place], | | | 2019 | Visit | | [place] W | | | | | | [place], | | | | | | [place] [address] | | | | | | [phone] | | | | | | | | +--------+ + + + + | 05/21/ | Implant | Cardiology | Daljit Singletary, | Remote Device | 2019 | Monitor | | MD [address] [place] | Interrogation | | | | | [place], | (Primary Dx); | | | | | [place] [address] | Pacemaker; | | | | | [phone] | Sinoatrial node | | | | | | dysfunction (HCC) | | | | | | with symptomatic | | | | | | bradycardia | +--------+ + + + + documented as of this encounter Visit Diagnoses Not on filedocumented in this encounter"
--- OUTSIDE RECORDS SUMMARY | ~2020-04-15 | XMS | Encounter Summary ---
Demographics + + + | Address | [address] | | | [place] [address] | + + + | Home Phone [...] Providers + +------+ + | Care Commodity Management Specialist Name | Role | Phone | + +------+ + PCP | Unavailable | + +------+ + Encounter Details +--------+ + + + + | Date | Type | Department | Care Team | Description | +--------+ + + + + | 06/25/ | [facility] | Daljit Singletary, | | | 2008 | Encounter | MED CTR XRAY [address] | [address] | | | | | [place] | [place], | | | | | [place] [address] | [place] [address] | | | | | [phone] | [phone] | | | | | | | [...] | | | 2019 | | | Jane[address] | | | | | | [place], | | | | | | [place] [address] | | | | | | [phone] | | | | | | | | +--------+ + + + + | 05/01/ | Procedure | Cardiology | | | | 2019 | visit | | | | +--------+ + + + + | 05/01/ | Office | Cardiology | [place], | | | 2019 | Visit | | [place] [address] | | | | | | [place], | | | | | | [place] [address] | | | | | | [phone] | | | | | | | | +--------+ + + + + | 05/21/ | Implant | Cardiology | Daljit Singletary, | Remote Device | 2019 | Monitor | | [address] | Interrogation | | | | | [place], | (Primary Dx); | | | | | [place] [address] | Pacemaker; | | | | | [phone] | Sinoatrial node | | | | | | dysfunction (HCC) | | | | | | with symptomatic | | | | | | bradycardia | +--------+ + + + + documented as of this encounter Visit Diagnoses Not on filedocumented in this encounter"
--- OUTSIDE RECORDS SUMMARY | ~2020-04-15 | XMS | Clinical Summary ---
Demographics + + + | Address | [address] | | | [place] [address] | + + + | Home Phone | | + + + | Preferred Language | Unknown | + + + | Marital Status | | + + + | Yazdanism Affiliation | 1013 | + + + | Race | Unknown | + + + | Ethnic Group | Unknown | + + + Author + + + | Author | [email or web address] (Historical as of | | | 07-08-19) | + + + | Organization | [facility] [email or web address] (Historical as of | | | 07-08-19) [...] Team Providers + +------+ + | Care Chocolate Maker Name | Role | Phone | [...] + | AUTO INSURANCE | AUTO | [id number] | | | | | | INSURA | | | | | | | NCE | | | | | | | GENERI | | | | | | | C | | | | | + +--------+ +------+-------+ + | AUTO INSURANCE | AUTO | [id number] | | | | | | INSURA | [id number] | | | | | | NCE | | | | | | | GENERI | | | | | | | C | | | | | + +--------+ +------+-------+ + | MEDICARE | MEDICA | [id number] | | | [address] | | | RE | | | | [place], [place] [address] | | | IP-OP | | | | | + +--------+ +------+-------+ + | [facility] | [place] | [id number] | | | | | | | [...] | Self | [birth year] | Home: | [address] | | | al/Fam | | [address] | [address] | [address] [place], [place] | | | roxanne | | | [address] | [address] | + +--------+ +--------+ + + | AMILCAR GAY | Third | Self | [birth year] | Home: | [address] | | | [place] | | 9 | +- | [place], [place] | | | [address] | | | [address] | [address] | | | ity | | | | | + +--------+ +--------+ + + | AMILCAR GAY | Third | Self | [birth year] | Home: | [address] | | | [place] | | 1960 | +- | [place], [place] | | | [address] | | | [address] | [address] | | | ity | | | | | + +--------+ +--------+ + +
--- OUTSIDE RECORDS SUMMARY | ~2020-04-15 | XMS | Encounter Summary ---
Demographics + + + | Address | [address] | | | [place] [address] | + + + | Home Phone [...] Providers + +------+ + | Care Computer Repair Instructor Name | Role | Phone | [...] | | CARDIOLOGY [address] | Janeen [employer] [address] | | | | [place], | [place], | | | | | [place] [address] | [place] [address] | | | | | [phone] | [phone] | | | | | | | [...] | | | | | | [place] [address] | | | | | | [phone] | | | | | | | [...] | | | | | | [place] [address] | | | | | | [phone] | | | | | | | | +--------+ + + + + | 05/21/ | Implant | Cardiology | Daljit Singletary, | Remote Device | 2019 | Monitor | | MD Chiquis [place]ro | Interrogation | | | | | [facility] [place], | (Primary Dx); | | | | | [place] [address] | Pacemaker; | | | | | [phone] | Sinoatrial node | | | | | | dysfunction (HCC) | | | | | | with symptomatic | | | | | | bradycardia | +--------+ + + + + documented as of this encounter Visit Diagnoses Not on filedocumented in this encounter"
--- OUTSIDE RECORDS SUMMARY | ~2020-04-15 | XMS | Encounter Summary ---
Demographics + + + | Address | [address] | | | [place] [address] | + + + | Home Phone [...] Organization | [facility] | | | and [...] Providers + +------+ + | Care Manager Division Name | Role | Phone | + [...] | | | | Diagnoses | | Hiram | | | | | Rectal | | Darin Read | | | | | bleeding | | MD [address] | | | | | Diarrhea, | | [address] | | | | | unspecified | | [place], | | | | | type | | [place] [address] | | | | | Unintentiona | | Phone: | | | | | l weight | | [phone] | | | | | loss | | Fax: | | | | | Pacemaker | | [phone] | | | | | Opioid type | | | | | | | dependence, | | | | | | | continuous | | | | | | | (HCC) | | | | | | | Allergy to | | | | | | | opioid | | | | | | | analgesic | | | | | | | Procedures | | | | | | | [place] | | | | | | | COLONOSCOPY | | | | | | | FLX DX | | | | | | | W/COLLJ SPEC | | | | | | | WHEN PFRMD | | | | | | | [place] | | | | | | | COLONOSCOPY | | | | | | | W/BIOPSY | | | | | | | SINGLE/MULTI | | | | | | | PLE [place] | | | | | | | COLSC FLX | | | | | | | W/RMVL OF | | | | | | | TUMOR POLYP | | | | | | | LESION SNARE | | | | | | | TQ [place] | | | | | | | ANESTHESIA | | | | | | | LOWER INTST | | | | | | | ENDOSCOPIC | | | | | | | PX NOS | | | | | | | COLONOSCOPY | | | +--------+--------+ + + + + Encounter Details +--------+ + + + + | Date | Type | Department | Care Team | Description | +--------+ + + + + | 01/21/ | Hospital | [facility] | Darin Gandhi | Rectal bleeding; | | 2019 | Encounter | MED CTR MP INTRA OP | MD Jacek [address] | Diarrhea, | | | | [address] | [address] [place] | unspecified type; | | | | [place], [place] | [place] [address] | Unintentional weight | | | | [address] | [phone] | loss; Opioid type | | | | [phone] | | dependence, | | | | | | continuous ([facility]); | | | | | | Allergy to opioid | | | | | | analgesic | +--------+ + + + + Social [...] | | | | | | [place] [address] | | | | | | [phone] | | | | | | | | +--------+ + + + + | 05/01/ | Procedure | Cardiology | | | | 2019 | visit | | | | +--------+ + + + + | 05/01/ | Office | Cardiology | Silvia, | | | 2019 | Visit | | [place] [address] | | | | | | [address], | | | | | | [place] [address] | | | | | | [phone] | | | | | | | | +--------+ + + + + | 05/21/ | Implant | Cardiology | Daljit Singletary, | Remote Device | | 2019 | Monitor | | [address] | Interrogation | | | | | [place], | (Primary Dx); | | | | | [place] [address] | Pacemaker; | | | | | [phone] | Sinoatrial node | | | | | | dysfunction (HCC) | | | | | | with symptomatic | | | | | | bradycardia | +--------+ + + + + documented as of this encounter Visit Diagnoses + + | Diagnosis | + + | Rectal bleeding Hemorrhage of rectum and anus | + + | Diarrhea, unspecified type | + + | Unintentional weight loss Loss of weight | + + | Opioid type dependence, continuous (HCC) Opioid type dependence, continuous | + + | Allergy to opioid analgesic | + + | Pacemaker Cardiac pacemaker in situ | + + | Bipolar disorder (HCC) Bipolar disorder, unspecified | + + | Coronary artery disease involving chilkat coronary artery of chilkat heart without | | angina pectoris | + + | Hypertension Unspecified essential hypertension | + + | Smoker Tobacco use disorder | + + | Ulcerative colitis Ulcerative colitis, unspecified | + + | Chronic pain syndrome | + + | Fibromyalgia Mylagia and myositis, unspecified | + + documented in this encounter Admitting Diagnoses + + | Diagnosis | + + | Pacemaker Cardiac pacemaker in situ | + + | Rectal bleeding Hemorrhage of rectum and anus | + + | Diarrhea, unspecified type | + + | Unintentional weight loss Loss of weight | + + | Opioid type dependence, continuous (HCC) Opioid type dependence, continuous | + + | Allergy to opioid analgesic | + + documented in this encounter"
--- OUTSIDE RECORDS SUMMARY | ~2020-04-15 | XMS | Encounter Summary ---
Demographics + + + | Address | [address] | | | [place] [address] | + + + | Home Phone [...] Team Providers + +------+ + | Care Estate Attorney Name | Role | Phone | [...] Provider Unknown | | | | | [place], [place] | [phone] | | | | | [address] | | | | | | [phone] | | | +--------+ + + + [...] + + + +---------+ + + | [place]-3 Fatty | CAPS, one capsule by | [...] | | | | | | [place] [address] | | | | | | [phone] | | | | | | | | +--------+ + + + + | 05/01/ | Procedure | Cardiology | | | | 2019 | visit | | | | +--------+ + + + + | 05/01/ | Office | Cardiology | Silvia, | | | 2019 | Visit | | [address] | | | | | | [place], | | | | | | [place] [address] | | | | | | [phone] | | | | | | | | +--------+ + + + + | 05/21/ | Implant | Cardiology | Daljit Singletary, | Remote Device | 2019 | Monitor | | [address] | Interrogation | | | | | [place], | (Primary Dx); | | | | | [place] [address] | Pacemaker; | | | | | [phone] | Sinoatrial node | | | | [...] CT MYELOGRAPHY | Routin | 07/01/2018 | | Results for this | | LUMBAR SPINE | e | 5:00 PM | | procedure are in the | | | | PDT | | results section. | + +--------+ + + + documented in this encounter Results CT Myelography Lumbar Spine (07/01/2018 5:00 PM PDT) + + | Specimen | [...]
--- OUTSIDE RECORDS SUMMARY | ~2020-04-15 | XMS | Encounter Summary ---
Demographics + + + | Address | [address] | | | [place] [address] | + + + | Home Phone [...] Team Providers + +------+ + | Care Drywall Finisher Name | Role | Phone | [...] + + | 08/29/ | [facility] | [facility] | [place], | Essential | | 2015 | Visit | CARDIOLOGY [address] | [place] [address] | hypertension | | | | [place], | [place], | (Primary Dx); | | | | [place] [address] | [place] [address] | Coronary artery | | | | [phone] | [phone] | disease involving | | | | | | southern ute coronary | | | | | | [...] was seen in the emergency room at [facility] on 08/23/20 15 and the ER physician reviewed his chart saying that there were 2 ultrasounds from [facility] both of them are clear of DVT but reveal some venous insufficiency. Today, arian ent tells me that he started having swelling in both his feet within a week when he got to [facility]. He had extensive traveling. He [...] Preventative health care Coronary artery disease involving southern ute coronary artery without angina pectoris Cannabis abuse, [...] by mouth 3 times daily. 0 EMMA VEÁLSQUEZ 550 MG CAPS Take by mouth. MELATONIN TABS, at bedtime as needed Methylsulfonylmethane (MSM) 1000 MG TABS Take by mouth 2 (two) times daily. metoprolol succinate (TOPROL-XL) 200 mg ER tablet Take 1 tablet by mouth every evening. 90 tablet 3 [facility] Natural Products (OSTEO BI-FLEX/5-LOXIN ADVANCED PO) Take [...] 3rd dose, call 911 100 tablet 3 [place]-3 Fatty Acids (SALMON OIL-1000 PO) CAPS, one capsule by mouth daily twice daily ONE TOUCH DELICA LANCETS [facility] Check glucose as needed for [...] Daily. to reduce urinary frequenc y Lot #[id number], exp 07/2016 (Patient taking differently: Take 8 mg by mouth Daily. PATIENT STA YOSELIN NO LONGER TAKING THIS MEDICATION. STATED ON 08/29/2015. to reduce urinary frequency Lot #[id number], exp 07/2016) 21 capsule 0 Specialty Vitamins [...] PLTEX 163 07/26/2014 I reviewed records from [facility] for emergency department visit o n [...] brought reports to the emergency room at [facility] and according to the not es they [...] ventricular arrhythmia performed by Dr. Gambino at [facility] on 01/30/2013. Patient had spontaneous [...] to go back in 3 days to [place] for an attempt of ablation under general [...] dizziness. He is in class I-II of [place] [employer] functional class. T here are [...] this chart may have been created with [employer] voice recognition software. Occasi onal wrong-word or [...] W | | | | | | [place], | | | | | | [place] [address] | | | | | | [phone] | | | | | | | | +--------+ + + + + | 05/01/ | Procedure | Cardiology | | | | 2019 | visit | | | | +--------+ + + + + | 05/01/ | Office | Cardiology | Silvia, | | | 2019 | Visit | | [place] [address] | | | | | | [place], | | | | | | [place] [address] | | | | | | [phone] | | | | | | | | +--------+ + + + + | 05/21/ | Implant | Cardiology | Sydni Singletary, | Remote Device | 2019 | Monitor | | MD [address] [place] | Interrogation | | | | | [place], | (Primary Dx); | | | | | [place] [address] | Pacemaker; | | | | | [phone] | Sinoatrial node | | | | [...] the | | | | PDT | southern ute coronary | results section. | | | [...] VENOUS BILATERAL dated 08/29/2015 1:45 PM. | [facility] | | HISTORY: DVT. COMPARISON: None. TECHNIQUE: Compression | [facility] | | sonography was performed from the groin through the popliteal fossa | [facility] | | in both lower extremities.. [...] conveyed to the ordering provider, by the drywall stripper helper, | | | immediately following the [...] to the ordering provider, by the | |drywall stripper helper, immediately following the exam. | | | | | |Dictated and Signed by: Emmanuel Gibbons MD | | Electronically signed: 08/29/2015 3:25 PM | + + + + + + + | Performing | Address | City/State/Zipcode | Phone Number | | Organization | | | | + + + + + | [facility] | [address] | [place] | [phone] | | [facility] | | [address] | | | - IMAGING | | [...] MD | | | | | | ([id number]) on 08/29/2015 | | | | | [...] + + | Coronary artery disease involving southern ute coronary artery without angina pectoris | + + | DVT (deep venous thrombosis), bilateral | + + documented in this encounter
--- OUTSIDE RECORDS SUMMARY | ~2020-04-15 | XMS | Encounter Summary ---
Demographics + + + | Address | [address] | | | [place] [address] | + + + | Home Phone [...] Team Providers + +------+ + | Care Bereavement Program Coordinator Name | Role | Phone | + +------+ + PCP | Unavailable | + +------+ + Encounter Details +--------+ + + + + | Date | Type | Department | Care Team | Description | +--------+ + + + + | 02/01/ | [facility] | [facility] | Evan Gandara MD | | | 2008 - | Encounter | MED CTR MED ONC | [address] [facility] | | | | | [address] [place] | [place] | | | 02/06/ | | [place] [address] | [address] | | | 2008 | | [phone] | | | +--------+ + + + [...] W | | | | | | [place], | | | | | | [place] [address] | | | | | | [phone] | | | | | | | | +--------+ + + + + | 05/01/ | Procedure | Cardiology | | | | 2019 | visit | | | | +--------+ + + + + | 05/01/ | Office | Cardiology | Silvia | | | 2019 | Visit | | [place] [address] | | | | | | [place], | | | | | | [place] [address] | | | | | | [phone] | | | | | | | | +--------+ + + + + | 05/21/ | Implant | Cardiology | Daljit Singletary, | Remote Device | 2019 | Monitor | | MD [address] [place] | Interrogation | | | | | [place], | (Primary Dx); | | | | | [place] [address] | Pacemaker; | | | | | [phone] | Sinoatrial node | | | | | | dysfunction (HCC) | | | | | | with symptomatic | | | | | | bradycardia | +--------+ + + + + documented as of this encounter Visit Diagnoses Not on filedocumented in this encounter"
--- OUTSIDE RECORDS SUMMARY | ~2020-04-15 | XMS | Encounter Summary ---
Demographics + + + | Address | [address] | | | [place] [address] | + + + | Home Phone [...] Providers + +------+ + | Care Manager Transplant Name | Role | Phone | + [...] 2014 | | CARDIOLOGY [address] | SUMMER COUNSELOR [address] [place] | | | | | [place], | [place], [place] | | | | | [place] [address] | [address] | | | | | [phone] | | | +--------+ + + + [...] W | | | | | | [place], | | | | | | [place] [address] | | | | | | [phone] | | | | | | | | +--------+ + + + + | 05/01/ | Procedure | Cardiology | | | | 2019 | visit | | | | +--------+ + + + + | 05/01/ | Office | Cardiology | Silvia, | | | 2019 | Visit | | PARISA Vernon [address] | | | | | | [place], | | | | | | [place] [address] | | | | | | [phone] | | | | | | | | +--------+ + + + + | 05/21/ | Implant | Cardiology | Daljit Singletary, | Remote Device | | 2019 | Monitor | | [address] [facility] | Interrogation | | | | | [place], | (Primary Dx); | | | | | [place] [address] | Pacemaker; | | | | | [phone] | Sinoatrial node | | | | | | dysfunction (HCC) | | | | | | with symptomatic | | | | | | bradycardia | +--------+ + + + + documented as of this encounter Visit Diagnoses Not on filedocumented in this encounter"
--- OUTSIDE RECORDS SUMMARY | ~2020-04-15 | XMS | Encounter Summary ---
Demographics + + + | Address | [address] | | | [place] [address] | + + + | Home Phone [...] Providers + +------+ + | Care Road Roller Operator Hot Mix Name | Role | Phone | + +------+ + | Kirk French MD | PCP | | + +------+ + Encounter Details +--------+ + + + + | Date | Type | Department | Care Team | Description | +--------+ + + + + | 01/19/ | Procedure | [facility] | Daljit Singletary, | Pacemaker | | 2018 | visit | CARDIOLOGY [address] | [address] [place] | reprogramming/check | | | | [place], | [place], | DO NOT DELETE | | | | [place] [address] | [place] [address] | (Primary Dx); | | | | [phone] | [phone] | Pacemaker - | | | | [...] documented as of this encounter Progress Notes Kailey Pruitt RN - 01/19/2018 9:00 AM PSTDuring patient's visit today,while hooking up hi s right lower surface lead, patient told me "Don't freak out, I am wearing a 45". I could se e patient had the Gun in a holster on his right side under his shirt. As soon as patient s aid this I told him that he is not allowed to bring a gun into the hospital as we are a gun free zone. Patient then responded that he does not believe in gun free zones. I then notifie d security that he was leaving the clinic and was carrying a 45 pistol. Electronically kamaljit d by: Kailey Pruitt RN 01/19/2018 10:00Electronically signed by Kailey Pruitt RN at 11:35 AM PSTdocumented in this encounter Plan of [...] | | | | | | [place] [address] | | | | | | [phone] | | | | | | | | +--------+ + + + + | 05/01/ | Procedure | Cardiology | | | | 2019 | visit | | | | +--------+ + + + + | 05/01/ | Office | Cardiology | Silvia, | | | 2019 | Visit | | PARISA Vernon [address] | | | | | | [place], | | | | | | [place] [address] | | | | | | [phone] | | | | | | | | +--------+ + + + + | 05/21/ | Implant | Cardiology | Daljit Singletary, | Remote Device | | 2019 | Monitor | | [address] [place] | Interrogation | | | | | [place], | (Primary Dx); | | | | | [place] [address] | Pacemaker; | | | | | [phone] | Sinoatrial node | | | | [...] + | DEVICE INTERROGATION | Routin | 01/19/2018 | Pacemaker | Results for this | [...] documented in this encounter Results Device Interrogation (01/19/2018 12:00 AM PST) + + + | Narrative | Performed At | + + + | Daljit | [facility] | | MD Gemini 01/19/2018 11:35 PATIENT NAME: Moe Bradley | | | Laura : 1960: AGE: 57 y.o. Pacemaker | | | Evaluation Report January 19, 2018 Reason for evaluation: | | | routineIndication for pacemaker: ICD-10-CM ICD-9-CM 1. Pacemaker | | | reprogramming/check DO NOT DELETE Z45.018 V53.31 Device Interrogation | | | 2. Pacemaker - Medtronic - [id number] Adapta - Implanted 06/14/2009 Z95.0 | | | V45.01 Device Interrogation 3. Sinoatrial node dysfunction (HCC) with | | | symptomatic bradycardia I49.5 427.81 Device Interrogation Patient | | | was seated and/or reclined and device was interrogated. Pacemaker | | | parameters, battery status, percentages pacing and significant | | | arrhythmias were reviewed. Heart rate histograms were assessed for | | | adequate heart rate response and any alerts reviewed. Appropriate lead | | | impedance testing was performed. Pacing impedances were reviewed for | | | any significant changes. Sensing tests were performed by decreasing | | | LRL. Adequacy of pacing thresholds were tested by increasing LRL for | | | each lead and recorded for loss of capture. Final outputs were | | | assessed for adequate safety margins. Please see the scanned Paceart | | | report and device PDF for further details.Data collected by Kailey Molina | | | MONROE Pruitt Underlying rhythm: sinus bradycardia 52 beats.1 mode switch | | | episodes accounting for <0.1 % of the time. No episodes. PVC | | | singles 280 PVC singles 23/monthPVC runs 3 | | | Histogram good. Battery longevity 2.5 years.Normal and stable device | | | function.Prefers office checks. Device interrogation due in office in | | | 6 months. | | |assessed for adequate heart rate [...] Pruitt RN | | | | | |Underlying rhythm: sinus bradycardia 52 beats. | | |1 mode switch episodes accounting for <0.1 % of the time. | | |No episodes. | | |PVC singles 280 PVC singles 23/month | | |PVC runs 3 | | |Histogram good. Battery longevity 2.5 years. | | |Normal and stable device function. | | |Prefers office checks. | | |Device interrogation due in office in 6 months. | | | | | + + + + + | Procedure Note | + + | Daljit Singletary MD - 01/19/2018 9:00 AM PST Formatting of this note might be | | different from the original.PATIENT NAME: Moe Sanchez : 1960: | | AGE: 57 y.o.Pacemaker Evaluation ReportFebruary 2017Reason for evaluation: | | routineIndication for pacemaker: ICD-10-CM ICD-9-CM 1. Pacemaker reprogramming/check | | DO NOT DELETE Z45.018 V53.31 Device Interrogation 2. Pacemaker - Medtronic - [id number] | | Adapta - Implanted 06/14/2009 Z95.0 V45.01 Device Interrogation 3. Sinoatrial node | | dysfunction (HCC) with symptomatic bradycardia I49.5 427.81 Device Interrogation Patient | | was seated and/or reclined and device was interrogated. Pacemaker parameters, battery | | status, percentages pacing and significant arrhythmias were reviewed. Heart rate | | histograms were assessed for adequate heart rate response and any alerts reviewed. | | Appropriate lead impedance testing was performed. Pacing impedances were reviewed for | | any significant changes. Sensing tests were performed by decreasing LRL. Adequacy of | | pacing thresholds were tested by increasing LRL for each lead and recorded for loss of | | capture. Final outputs were assessed for adequate safety margins.Please see the scanned | | Paceart report and device PDF for further details.Data collected by Kailey Pruitt, | | RNUnderlying rhythm: sinus bradycardia 52 beats.1 mode switch episodes accounting for | | <0.1 % of the time. No episodes. PVC singles 280 PVC singles 23/monthPVC runs | | 3 Histogram good. Battery longevity 2.5 years.Normal and stable device | | function.Prefers office checks. Device interrogation due in office in 6 months. | |Patient was seated and/or reclined and device was interrogated. Pacemaker parameters, batte ry status, percentages pacing and significant arrhythmias were reviewed. Heart rate histogra ms were assessed for adequate heart rate | [...] further details. | |Data collected by Kailey Pruitt, RN | | | |Underlying rhythm: sinus bradycardia 52 beats. | |1 mode switch episodes accounting for <0.1 % of the time. | |No episodes. | |PVC singles 280 PVC singles 23/month | |PVC runs 3 | |Histogram good. Battery longevity 2.5 years. | |Normal and stable device function. [...]
--- OUTSIDE RECORDS SUMMARY | ~2020-04-15 | XMS | Encounter Summary ---
Demographics + + + | Address | [address] | | | [place] [address] | + + + | Home Phone [...] Team Providers + +------+ + | Care Creasing Machine Operator Name | Role | Phone [...] [address] | | | | | | [place], [place] | (Fax) | | | | | [address] | | | | | | [phone] | | | +--------+ + + + [...] | | | | | | [place] [address] | | | | | | [phone] | | | | | | | | +--------+ + + + + | 05/01/ | Procedure | Cardiology | | | | 2019 | visit | | | | +--------+ + + + + | 05/01/ | Office | Cardiology | Silvia, | | | 2019 | Visit | | PARISA Vernon [address] | | | | | | [place], | | | | | | [place] [address] | | | | | | [phone] | | | | | | | | +--------+ + + + + | 05/21/ | Implant | Cardiology | Daljit Singletary, | Remote Device | | 2019 | Monitor | | [address] | Interrogation | | | | | [place], | (Primary Dx); | | | | | [place] [address] | Pacemaker; | | | | | [phone] | Sinoatrial node | | | | | | dysfunction (HCC) | | | | | | with symptomatic | | | | | | bradycardia | +--------+ + + + + documented as of this encounter Visit Diagnoses Not on filedocumented in this encounter"
--- OUTSIDE RECORDS SUMMARY | ~2020-04-15 | XMS | Encounter Summary ---
Demographics + + + | Address | [address] | | | [place] [address] | + + + | Home Phone [...] Team Providers + +------+ + | Care Fireworks Assembly Supervisor Name | Role | Phone | [...] Description | +--------+--------+ + + + | 11/03/ | Refill | [facility] | Kirk French | Medication Refill | | 2019 | | [facility] | MD Brea [address] | | | | | [address] | [address] | | | | | [address] | [place] [address] | | | | | [place], [place] | [phone] | | | | | [address] | | | | | | [phone] | | | +--------+--------+ + + + [...] | | | | | | [place] [address] | | | | | | [phone] | | | | | | | | +--------+ + + + + | 05/01/ | Procedure | Cardiology | | | | 2019 | visit | | | | +--------+ + + + + | 05/01/ | Office | Cardiology | Silvia, | | | 2019 | Visit | | [place] [address] | | | | | | [place], | | | | | | [place] [address] | | | | | | [phone] | | | | | | | | +--------+ + + + + | 05/21/ | Implant | Cardiology | Daljit Singletary, | Remote Device | | 2019 | Monitor | | [facility] | Interrogation | | | | | [place], | (Primary Dx); | | | | | [place] [address] | Pacemaker; | | | | | [phone] | Sinoatrial node | | | | | | dysfunction (HCC) | | | | | | with symptomatic | | | | | | bradycardia | +--------+ + + + + documented as of this encounter Visit Diagnoses Not on filedocumented in this encounter"
--- OUTSIDE RECORDS SUMMARY | ~2020-04-15 | XMS | Encounter Summary ---
Demographics + + + | Address | [address] | | | [place] [address] | + + + | Home Phone [...] Providers + +------+ + | Care Licensed Practical Nurse Clinic Nurse Name | Role | Phone | + +------+ + PCP | Unavailable | + +------+ + Encounter Details +--------+ + + + + | Date | Type | Department | Care Team | Description | +--------+ + + + + | 11/12/ | Hospital | [facility] | | | | 1994 | Encounter | MED CTR GENERIC OP | | | | | | CONV DEPT [address] | | | | | | [place], | | | | | | [place] [address] | | | | | | [phone] | | | +--------+ + + + [...] | | | | | | [place] [address] | | | | | | [phone] | | | | | | | | +--------+ + + + + | 05/01/ | Procedure | Cardiology | | | | 2019 | visit | | | | +--------+ + + + + | 05/01/ | Office | Cardiology | Silvia, | | | 2019 | Visit | | [address] | | | | | | [place], | | | | | | [place] [address] | | | | | | [phone] | | | | | | | | +--------+ + + + + | 05/21/ | Implant | Cardiology | Daljit Singletary, | Remote Device | 2019 | Monitor | | [place] [address] [place] | Interrogation | | | | | [place], | (Primary Dx); | | | | | [place] [address] | Pacemaker; | | | | | [phone] | Sinoatrial node | | | | | | dysfunction (HCC) | | | | | | with symptomatic | | | | | | bradycardia | +--------+ + + + + documented as of this encounter Visit Diagnoses Not on filedocumented in this encounter"
--- OUTSIDE RECORDS SUMMARY | ~2020-04-15 | XMS | Encounter Summary ---
Demographics + + + | Address | [address] | | | [place] [address] | + + + | Home Phone [...] Team Providers + +------+ + | Care Paralegal Name | Role | Phone | + [...] | CARDIOLOGY [address] | MD [address] [place] | | | | | [place], | [place], | | | | | [place] [address] | [place] [address] | | | | | [phone] | [phone] | | | | | | | [...] | | | | | | [place] [address] | | | | | | [phone] | | | | | | | [...] | | | | | | [place] [address] | | | | | | [phone] | | | | | | | | +--------+ + + + + | 06/30/ | Implant | Cardiology | Daljit Singletary, | Remote Device | | 2019 | Monitor | | [address] [facility] | Interrogation | | | | | [address] [place], | (Primary Dx); | | | | | [place] [address] | Pacemaker; | | | | | [phone] | Sinoatrial node | | | | | | dysfunction (HCC) | | | | | | with symptomatic | | | | | | bradycardia | +--------+ + + + + documented as of this encounter Visit Diagnoses Not on filedocumented in this encounter"
--- OUTSIDE RECORDS SUMMARY | ~2020-04-15 | XMS | Encounter Summary ---
Demographics + + + | Address | [address] | | | [place] [address] | + + + | Home Phone [...] Team Providers + +------+ + | Care After School Program Director Name | Role | Phone [...] 2019 | | GASTROENTEROLOGY | [address] | | | | | [address] | [address] [place] | | | | | [address] [place] | [place] [address] | | | | | [address] | | | | | | [phone] | | | +--------+ + + + [...] W | | | | | | [place], | | | | | | [place] [address] | | | | | | [phone] | | | | | | | | +--------+ + + + + | 05/01/ | Procedure | Cardiology | | | | 2019 | visit | | | | +--------+ + + + + | 05/01/ | Office | Cardiology | [place]via, | | | 2019 | Visit | | [address] [address] | | | | | | [place], | | | | | | [place] [address] | | | | | | [phone] | | | | | | | | +--------+ + + + + | 05/21/ | Implant | Cardiology | Daljit Singletary, | Remote Device | | 2019 | Monitor | | MD [address] [place] | Interrogation | | | | | [place], | (Primary Dx); | | | | | [place] [address] | Pacemaker; | | | | | [phone] | Sinoatrial node | | | | [...] | | | | | Emmanuel Daniel [facility] | | | | + + + [...]
--- OUTSIDE RECORDS SUMMARY | ~2020-04-15 | XMS | Encounter Summary ---
Demographics + + + | Address | [address] | | | [place] [address] | + + + | Home Phone [...] Team Providers + +------+ + | Care Video Game Engineer Name | Role | Phone [...] + + | 02/15/ | Office | [facility] | Jay Cohn PA | DIDIER (obstructive | | 2012 | Visit | SLEEP DISORDER [address] | [address] | sleep apnea) | | | | [address] [place] | [place] | (Primary Dx) | | | | [place] [address] | [address] | | | | | [phone] | | | +--------+---------+ + + + [...] + + + | Blood Pressure | 128/82 | 02/15/2013 9:54 AM | | | | | PDT | | + + + + + | Pulse | 82 | 02/15/2013 9:54 AM | | | | | PDT | | + + + + + | Temperature | - | - | | + + + + + | Respiratory Rate | 16 | 02/15/2013 9:54 AM | | | | | PDT | | + + + + + | Oxygen Saturation | - | - | | + + + + + | Inhaled Oxygen | - | - | | | Concentration | | | | + + + + + | Weight | 121.2 kg (267 lb 3.2 | 02/15/2013 9:54 AM | | | | oz) | PDT | | + + + + + | Height | - | - | | + + + + + | Body Mass Index | 32.52 | 02/15/2013 8:23 AM | | | | | PDT | | + + + + + documented in this encounter Patient Instructions Patient Instructions Jay Cohn PA - 02/15/2013 10:09 AM PDTGo to [facility] for replacement equipment including: Nasal pillows or Sleep Tarango Filter Work toward wearing CPAP 100% of the time you are asleep. documented in this encounter Progress Notes Jay Cohn PA - 02/15/2013 9:50 AM PDT Subjective: Patient ID: Moe Sanchez is a 53 y.o. male. HPI last office visit was: 06/30/2011 date of polysomnography: 11/05/2010 AHI: 26.8 RDI: 43.2 O2%: 83% with 22.5 minutes below 88% Machine type: ResMed S9 with nasal pillows obtained from: [facility] in [place] pressure is: 13 cm CPAP download shows CPAP useage # nights: no download averaging hours per night: Amilcar comes in for CPAP compliance, but he has not wearing it for quite some time. He has h ad some health problems recently and feels that he needs to use his CPAP. The pain from his neck was severe enough that he didn't feel that he could tolerate wearing his CPAP. His pa in has improved, but he feels he is not sleeping well without his CPAP. He tried to go to [facility] in [place] to replace his equipment, but it had been we ll over a year since his last visit and he needed a new prescription. He has done the best with nasal pillows, but they cause some soreness in his nares. Review of Systems Objective: Physical Exam Assessment: Problem #1: OBSTRUCTIVE SLEEP APNEA (327.23) This is controlled with CPAP, but he has not been wearing his CPAP recently. He is ready t o use it again. Plan: He is to continue with CPAP indefinitely. He is to go to [facility] in [place] to g et a new mask and filter. He is to work toward wearing his CPAP 100% of the time he is asle ep. I will follow up again in 1 month, sooner prn. Fifteen minutes were spent [id number]-va-[id number], wi th the majority of time spent in counseling. Jay Cohn PA-C cc: MD Michael Snyder DO documented in this enco unter Plan of Treatment +--------+ + + + + | Date | Type | Specialty | Care Team | Description | +--------+ + + + + | 05/01/ | Appointment | Radiology | Silvia, | | | 2019 | | | [address] | | | | | | [place], | | | | | | [place] [address] | | | | | | [phone] | | | | | | | | +--------+ + + + + | 05/01/ | Procedure | Cardiology | | | | 2019 | visit | | | | +--------+ + + + + | 05/01/ | Office | Cardiology | Silvia, | | | 2019 | Visit | | [address] [address] | | | | | | [place], | | | | | | [place] [address] | | | | | | [phone] | | | | | | | | +--------+ + + + + | 05/21/ | Implant | Cardiology | Daljit Singletary, | Remote Device | | 2020 | Monitor | | [address] [facility] | Interrogation | | | | | [address] [place], | (Primary Dx); | | | | | [place] [address] | Pacemaker; | | | | | [phone] | Sinoatrial node | | | | | | dysfunction (HCC) | | | | | | with symptomatic | | | | | | bradycardia | +--------+ + + + + documented as of this encounter Visit Diagnoses + + | Diagnosis | + + | DIDIER (obstructive sleep apnea) - Primary Obstructive sleep apnea (adult) (pediatric) | + + documented in this encounter"
--- OUTSIDE RECORDS SUMMARY | ~2020-04-15 | XMS | Encounter Summary ---
Demographics + + + | Address | [address] [place] [address] [address] | | | [place] [address] | + + + | Home Phone | | + + + | Preferred Language | Unknown | + + + | Marital Status | | + + + | Restorationism Affiliation | Unknown | + + + | Race | White | + + + | Ethnic Group | Not or | + + + Author + + + | Author | [facility] | + + + | Organization | [facility] | + + + | Address | Unknown | + + + | Phone | Unavailable | + + + Support + + + + + | Name | Relationship | Address | Phone | + + + + + | Rachel Valencia | [address] | [place] | | | | | [address] | | + + + + + Care Team Providers + +------+ + | Care Open Die Inspector Name | Role | Phone | [...] as of this encounter Progress Notes Interface, Middle School Science Teacher In - 07/19/2006 3:05 AM PDTCLINIC DATE: 06/13/2002 ORTHOPEDIC CLINIC REFERRING PHYSICIAN: Eugene Vera D.O. [address] [place] [address] Mr. Sanchez is a new patient. He [...] proceed. Martell Allen M.D. ELIZABETH / KATTY [id number] / [id number] / [id number] / [id number] cc: Eugene Vera D.O. [address] [place] [id number] signed by Interface, Middle School Science Teacher In at 07/19/2006 3:0 5 AM PDTdocumented in this encounter Plan of Treatment Not on filedocumented as of this encounter Visit Diagnoses Not on filedocumented in this encounter
--- OUTSIDE RECORDS SUMMARY | ~2020-04-15 | XMS | Encounter Summary ---
Demographics + + + | Address | [address] | | | [place] [address] | + + + | Home Phone [...] Providers + +------+ + | Care Assistant Professor Sculpture Name | Role | Phone | + [...] Refill | | 2011 | | [facility] | DO [address] | | | | | [address] | [place] | | | | | [place] | [address] | | | | | [address] | | | | | | [phone] | | | +--------+--------+ + + + [...] | | | | | | [place] [address] | | | | | | [phone] | | | | | | | | +--------+ + + + + | 05/01/ | Procedure | Cardiology | | | | 2019 | visit | | | | +--------+ + + + + | 05/01/ | Office | Cardiology | [place], | | | 2019 | Visit | | [address] | | | | | | [place], | | | | | | [place] [address] | | | | | | [phone] | | | | | | | | +--------+ + + + + | 05/21/ | Implant | Cardiology | Daljit Singletary, | Remote Device | 2019 | Monitor | | [address] [place] | Interrogation | | | | | [place], | (Primary Dx); | | | | | [place] [address] | Pacemaker; | | | | | [phone] | Sinoatrial node | | | | [...]
--- OUTSIDE RECORDS SUMMARY | ~2020-04-15 | XMS | Encounter Summary ---
Demographics + + + | Address | [address] | | | [place] [address] | + + + | Home Phone [...] Team Providers + +------+ + | Care Hydraulic Pile Hammer Operator Name | Role | Phone | [...] 2012 | | Conversion Location | [address] | | | | | TRACIE TINEO [facility] | [address] [place], | | | | | [place], [place] | [place] [address] | | | | | [address] | [phone] | | | | | [phone] | | | +--------+ + + + [...] | | | | | | [place] [address] | | | | | | [phone] | | | | | | | | +--------+ + + + + | 05/01/ | Procedure | Cardiology | | | | 2019 | visit | | | | +--------+ + + + + | 05/01/ | Office | Cardiology | Silvia, | | | 2019 | Visit | | [address] | | | | | | [place], | | | | | | [place] [address] | | | | | | [phone] | | | | | | | | +--------+ + + + + | 05/21/ | Implant | Cardiology | Daljit Singletary, | Remote Device | 2019 | Monitor | | [address] [place] | Interrogation | | | | | [place], | (Primary Dx); | | | | | [place] [address] | Pacemaker; | | | | | [phone] | Sinoatrial node | | | | | | dysfunction (HCC) | | | | | | with symptomatic | | | | | | bradycardia | +--------+ + + + + documented as of this encounter Visit Diagnoses Not on filedocumented in this encounter"
--- OUTSIDE RECORDS SUMMARY | ~2020-04-15 | XMS | Encounter Summary ---
Demographics + + + | Address | [address] | | | [place] [address] | + + + | Home Phone [...] Team Providers + +------+ + | Care Bulb Sorter Name | Role | Phone | + +------+ + PCP | Unavailable | + +------+ + Encounter Details +--------+ + + + + | Date | Type | Department | Care Team | Description | +--------+ + + + + | 12/16/ | [facility] | [facility] | Naresh Mckeon | | | 2010 | Encounter | MED CTR SLEEP | MD Chaya [address] | | | | | CENTER [address] | [address] | | | | | [place] | [place] [address] | | | | | [address] | [phone] | | | | | [phone] | | | +--------+ + + + [...] W | | | | | | [place], | | | | | | [place] [address] | | | | | | [phone] | | | | | | | | +--------+ + + + + | 05/01/ | Procedure | Cardiology | | | | 2019 | visit | | | | +--------+ + + + + | 05/01/ | Office | Cardiology | Silvia | | | 2019 | Visit | | PARISA Vernon W | | | | | | [place], | | | | | | [place] [address] | | | | | | [phone] | | | | | | | | +--------+ + + + + | 05/21/ | Implant | Cardiology | Daljit Singletary, | Remote Device | 2019 | Monitor | | MD [address] [place] | Interrogation | | | | | [place], | (Primary Dx); | | | | | [place] [address] | Pacemaker; | | | | | [phone] | Sinoatrial node | | | | | | dysfunction (HCC) | | | | | | with symptomatic | | | | | | bradycardia | +--------+ + + + + documented as of this encounter Visit Diagnoses Not on filedocumented in this encounter"
--- OUTSIDE RECORDS SUMMARY | ~2020-04-15 | XMS | Encounter Summary ---
Demographics + + + | Address | [address] | | | [place] [address] | + + + | Home Phone [...] Team Providers + +------+ + | Care Sap Senior Developer Name | Role | Phone | [...] Provider Unknown | | | | | [place], [place] | [phone] | | | | | [address] | | | | | | [phone] | | | +--------+ + + + [...] + + + +---------+ + + | Bagley-3 Fatty | CAPS, one capsule by | [...] | | | | | | | #[id number], exp 07/2016 | | | | | [...] | | | | | | [place] [address] | | | | | | [phone] | | | | | | | | +--------+ + + + + | 05/01/ | Procedure | Cardiology | | | | 2019 | visit | | | | +--------+ + + + + | 05/01/ | Office | Cardiology | Silvia, | | | 2019 | Visit | | PARISA Vernon [address] | | | | | | [place], | | | | | | [place] [address] | | | | | | [phone] | | | | | | | | +--------+ + + + + | 05/21/ | Implant | Cardiology | Daljit Singletary, | Remote Device | | 2020 | Monitor | | [address] [place] | Interrogation | | | | | [place], | (Primary Dx); | | | | | [place] [address] | Pacemaker; | | | | | [phone] | Sinoatrial node | | | | [...]
--- OUTSIDE RECORDS SUMMARY | ~2020-04-15 | XMS | Encounter Summary ---
Demographics + + + | Address | [address] | | | [place] [address] | + + + | Home Phone [...] Team Providers + +------+ + | Care Body Joiner Name | Role | Phone | + [...] | | | | exertion | | [place] | | | | | Chest pain | | [place], [place] | | | | | on exertion | | [address] | | | | | | | Phone: | | | | | | | [phone] | | | | | | | Fax: | | | | | | | [phone] | +--------+--------+ + + + + Encounter Details +--------+ + + + + | Date | Type | Department | Care Team | Description | +--------+ + + + + | 04/27/ | [facility] Martell Hart | Chest pain on | | 2014 - | | [facility] MEDICAL | Sanjay Palacios MD | exertion (Primary | | | | [address] [place] | [address] | Dx); Dyspnea on | | 03/20/ | | [place] [address] | [place] | exertion; Essential | | 2014 | | [phone] | [address] | hypertension; Acute | | | | | | chest pain; | | | | | Parth Kraft, | Dizziness, | | | | | [address] | nonspecific; Mixed | | | | | [place], [place] | anxiety depressive | | | | | [address] | disorder; PUD | | | | | [phone] | (peptic ulcer | | | | [...] might be different f rom the original. [facility] DISCHARGE SUMMARY Pt. Name/Age/: Moe Sanchez 55 [...] 911 aka: NITROSTAT ONE TOUCH DELICA LANCETS [facility] Check glucose as needed for hypoglycemia OSTEO [...] Daily. to reduce urinary frequency - Lot #[id number], exp 07/2016 aka: RAPAFLO UNCODED MEDICATION - [...] hospital follow up Contact information: [address] [address] Call PARISA Russell. Specialty: Nurse Practitioner Why: As needed Contact information: [address] [place] [address] Condition: Patient being discharged with condition improved. Diet: Heart healthy, avoid acidic drinks and foods, spicy foods, too much coffee. Greater than 30 minutes were spent on discharge and coordination of post-hospital care. Electronically signed by: Thierry Fregoso DO, 03/20/2015 11:22 [facility] Portions of this chart may have been created with [employer] voice recognition software. Occasi onal wrong-word or [...] afford the prescribed medication, you can try pkiz-wdz-mgqatwx acid blockers, such as Pepcid AC, Tagamet, [...] or as directed by your healthcare provider [phone] [employer]. [address] [place] [address]. All righ ts reserved. This information is [...] + + + +---------+ + + | Conifer-3 Fatty | CAPS, one capsule by | [...] | | | | | | | #[id number], exp 07/2016 | | | | | [...] DO - 03/19/2015 10:09 PM PDT . [facility] PROGRESS NOTE Patient: Moe Sanchez : 1960: Age: 55 y.o. MedRec: [id number] PCP: Kirk French Admission date: 03/18/2015 Hospital [...] 1708 03/18/15 1528 TROPONINI <0.01 <0.01 0.01 [facility] ECHOCARDIOGRAM REPORT STUDY DATE: 03/19/2015 PATIENT [...] changes. No results for input(s): PHART, PO2ART, PLQ6NPW, OPX5POK, BEART, N2SEXKSA in the last 168 h ours. No results for input(s): SPECSOURCE, PHPOCB, HCO3, TCO2, BEART, BE, NVZZ5SAX in the last 16 8 hours. Invalid input(s): TTDUZ8TE, XRFN9EA Point of care glucose: No results for [...] this chart may have been created with [employer] voice recognition software. Occasi onal wrong-word or sound-alike substitutions may have occurred due to the inherent granger itations of voice recognition software. Please read the chart carefully and recognize, using context, where these substitutions have occurred Belén Cho RN - 03/19/2015 11:03 AM [id number] Report given to Marlen morejon who is [...] W | | | | | | [place], | | | | | | [place] [address] | | | | | | [phone] | | | | | | | | +--------+ + + + + | 05/01/ | Procedure | Cardiology | | | | 2019 | visit | | | | +--------+ + + + + | 05/01/ | Office | Cardiology | Silvia, | | | 2019 | Visit | | PARISA Vernon [address] | | | | | | [place], | | | | | | [place] [address] | | | | | | [phone] | | | | | | | | +--------+ + + + + | 05/21/ | Implant | Cardiology | Daljit Singletary, | Remote Device | | 2020 | Monitor | | MD [address] [facility] | Interrogation | | | | | [place], | (Primary Dx); | | | | | [place] [address] | Pacemaker; | | | | | [phone] | Sinoatrial node | | | | [...] Performed At | + + + | [facility] ECHOCARD[facility]GRAM REPORT | | | STUDY [...] | | Signed by: Daljit Singletary MD [facility] 03/19/2015 15:44 | | | Dog Races Manager: Dewey Valdez RDMS | | + + [...] | | | | | | [employer] | | | | | [...] + + | Performing | Address | City/State/[facility] Cent[facility]ode | Phone Number | | Organization | | | | + + + + + | [facility] | [address] | [place] | [phone] | | [facility] | | [address] | | | - LABORATORY | | [...] mL/min/1.73m2 | [facility] | | | [facility] | RATE,ESTIMATED | | MEDICAL | | | | mL/min/1.71w6Voct than | | CENTER - | | [...] + | [facility] | [address] | [place], [place] | [phone] | | [facility] | | [address] | | | - LABORATORY | | [...] [address] | [place] | [phone] | | [facility] | | [address] | | | - LABORATORY | | [...] | | | | | | [employer] | | | | | [...] + + | Performing | Address | City/State/[facility] Centercoct | Phone Number | | Organization | | | | + + + + + | [facility] | [address] | [place] | [phone] | | [facility] | | [address] | | | - LABORATORY | | [...] | [address] | [place] | [phone] | | [facility] | | [address] | | | - LABORATORY | | [...] + | [facility] | [address] | [place] | [phone] | | [facility] | | [address] | | | - LABORATORY | | [...] [address] | [place] | [phone] | | [facility] | | [address] | | | - LABORATORY | | [...] ST. | [address] | [place], [place] | [phone] | | [facility] | | [address] | | | - LABORATORY | | [...] | | | | | | [employer] | | | | | [...] [address] | [place] | [phone] | | [facility] | | [address] | | | - LABORATORY | | [...] + | [facility] | [address] | [place], [place] | [phone] | | [facility] | | [address] | | | - LABORATORY | | [...] mL/min/1.73m2 | [facility] | | | [place] | RATE,ESTIMATED | | MEDICAL | | | | mL/min/1.51h4Tlwz than | | CENTER - | | [...] | ine Ratio | | | [facility] | | | | | | MEDICAL [...] + | [facility] | [address] | [place] | [phone] | | [facility] | | [address] | | | - LABORATORY | | [...] [address] | [place] | [phone] | | [facility] | | [address] | | | - LABORATORY | | [...]
--- OUTSIDE RECORDS SUMMARY | ~2020-04-15 | XMS | Encounter Summary ---
Demographics + + + | Address | [address] | | | [place] [address] | + + + | Home Phone [...] Providers + +------+ + | Care Account Relationship Manager Name | Role | Phone | + +------+ + | Kirk French MD | PCP | | + +------+ + Reason for Visit + + + | Reason | Comments | + + + | Procedure | | + + + Encounter Details +--------+ + + + + | Date | Type | Department | Care Team | Description | +--------+ + + + + | 12/21/ | Telephone | [facility] | Darin Gandhi | Procedure | | 2020 | | GASTROENTEROLOGY | MD Jacek [address] | | | | | [address] [place] | [address] [place] | | | | | [address] [place], [place] | [place] [address] | | | | | [address] | [phone] | | | | | [phone] | | | +--------+ + + + [...] W | | | | | | [place], | | | | | | [place] [address] | | | | | | [phone] | | | | | | | | +--------+ + + + + | 05/01/ | Procedure | Cardiology | | | | 2019 | visit | | | | +--------+ + + + + | 05/01/ | Office | Cardiology | Silvia, | | | 2019 | Visit | | PARISA Vernon [address] | | | | | | [place], | | | | | | [place] [address] | | | | | | [phone] | | | | | | | | +--------+ + + + + | 05/21/ | Implant | Cardiology | Daljit Singletary, | Remote Device | | 2019 | Monitor | | [address] | Interrogation | | | | | [place], | (Primary Dx); | | | | | [place] [address] | Pacemaker; | | | | | [phone] | Sinoatrial node | | | | | | dysfunction (HCC) | | | | | | with symptomatic | | | | | | bradycardia | +--------+ + + + + documented as of this encounter Visit Diagnoses + + | Diagnosis | + + | Rectal bleeding - Primary Hemorrhage of rectum and anus | + + | Diarrhea, unspecified type | + + | Unintentional weight loss Loss of weight | + + | Pacemaker Cardiac pacemaker in situ | + + | Opioid type dependence, continuous (HCC) Opioid type dependence, continuous | + + documented in this encounter"
--- OUTSIDE RECORDS SUMMARY | ~2020-04-15 | XMS | Encounter Summary ---
Demographics + + + | Address | [address] | | | [place] [address] | + + + | Home Phone [...] Team Providers + +------+ + | Care Pharmacist Hospital Name | Role | Phone | + [...] + | 12/21/ | Office | [facility] | Mabel, | Chest pain (Primary | | 2013 | Visit | CARDIOLOGY [address] | PARISA [place] [address] | Dx); Symptomatic | | | | [place], | [place], | PVCs; | | | | [place] [address] | [place] [address] | Hyperlipidemia; | | | | [phone] | [phone] | Hypertension; | | | | | [...] this time to see a specialist in [place] and he was to follow up with [...] MOUTH EVERY DAY 30 table t 5 [place]-3 Fatty Acids (SALMON OIL-1000 PO) CAPS, [...] arrhythmia performed by Dr. Gambino at [facility] on 01/30/2013. Patient had spontaneous PVCs from [...] to go back in 3 days to [place] for an attempt of ablation under general [...] weeks. He is in class II of [place] [employer] funct ional class. [...] tolic function, LVEF 65 to 70%. B. Elastera DDD permanent pacemaker implantation on 06/14/09 by [...] made to ensure accuracy; however, inadvertent computerized airflight attendants supervisor errors may be pre sent. documented in this encounter Plan of Treatment +--------+ + + + + | Date | Type | Specialty | Care Team | Description | +--------+ + + + + | 05/01/ | Appointment | Radiology | Silvia, | | | 2019 | | | [address] | | | | | | [place], | | | | | | [place] [address] | | | | | | [phone] | | | | | | | | +--------+ + + + + | 05/01/ | Procedure | Cardiology | | | | 2019 | visit | | | | +--------+ + + + + | 05/01/ | Office | Cardiology | Silvia, | | | 2019 | Visit | | PARISA [address] W | | | | | | [place], | | | | | | [place] [address] | | | | | | [phone] | | | | | | | | +--------+ + + + + | 05/21/ | Implant | Cardiology | Daljit Singletary, | Remote Device | 2019 | Monitor | | [address] [place] | Interrogation | | | | | [place], | (Primary Dx); | | | | | [place] [address] | Pacemaker; | | | | | [phone] | Sinoatrial node | | | | [...] of unspecified type of vessel, | | resighini or graft | + + documented in this encounter
--- OUTSIDE RECORDS SUMMARY | ~2020-04-15 | XMS | Encounter Summary ---
Demographics + + + | Address | [address] | | | [place] [address] | + + + | Home Phone [...] Team Providers + +------+ + | Care Laborer Powerhouse Name | Role | Phone | + +------+ + PCP | Unavailable | + +------+ + Encounter Details +--------+ + + + + | Date | Type | Department | Care Team | Description | +--------+ + + + + | 09/13/ | [facility] | [facility] | Jonathan, | | | 2009 | Encounter | MED CTR EMERGENCY | Martell Cr MD [address] | | | | | CENTER [address] [place] | [place] | | | | | [place] | [place] [address] | | | | | [address] | [phone] | | | | | [phone] | | | +--------+ + + + [...] W | | | | | | [place], | | | | | | [place] [address] | | | | | | [phone] | | | | | | | | +--------+ + + + + | 05/01/ | Procedure | Cardiology | | | | 2019 | visit | | | | +--------+ + + + + | 05/01/ | Office | Cardiology | Silvia | | | 2019 | Visit | | PARISA Vernon [address] | | | | | | [place], | | | | | | [place] [address] | | | | | | [phone] | | | | | | | | +--------+ + + + + | 05/21/ | Implant | Cardiology | Daljit Singletary, | Remote Device | 2019 | Monitor | | MD [place] | Interrogation | | | | | [place], | (Primary Dx); | | | | | [place] [address] | Pacemaker; | | | | | [phone] | Sinoatrial node | | | | | | dysfunction (HCC) | | | | | | with symptomatic | | | | | | bradycardia | +--------+ + + + + documented as of this encounter Visit Diagnoses Not on filedocumented in this encounter"
--- OUTSIDE RECORDS SUMMARY | ~2020-04-15 | XMS | Encounter Summary ---
Demographics + + + | Address | [address] | | | [place] [address] | + + + | Home Phone [...] Team Providers + +------+ + | Care Derrick Boat Captain Name | Role | Phone | [...] + + | 06/25/ | [facility] | [facility] | [place], | SINUS BRADYCARDIA | | 2013 | Visit | CARDIOLOGY [address] | [address] | (Primary Dx); | | | | [place], | [place], | Symptomatic PVCs; | | | | [place] [address] | [place] [address] | Coronary artery | | | | [phone] | [phone] | disease; | | | | | [...] different f rom the original. PATIENT NAME: oMe Sanchez : 1960: AGE: 54 y.o. PRIMARY [...] time, he was admitted over observation at [facility] for a chest pain. Aortogram revealed an [...] needed for Chest pain. 25 tablet 12 [place]-3 Fatty Acids (SALMON OIL-1000 PO) CAPS, one capsule by mouth daily twice daily ONE TOUCH DELICA LANCETS [facility] [place] Check glucose as [...] HGBEX 16.1 01/25/2014 I reviewed records from [facility] for emergency department visit o n [...] attenuation cannot completely be ruled out. [facility] 12/25/13, shows non critical coronary [...] yard. He is in class I-II of [place] [employer] funct ional class. There are [...] ventricular arrhythmia performed by Dr. Gambino at [facility] on 01/30/2013. Patient had spontaneous PVCs from [...] go back in 3 days to [place] for an attempt of ablation under general [...] dizziness. He is in class I-II of [place] [employer] functional class. There are no [...] made to ensure accuracy; however, inadvertent computerized flash welder errors may be pre sent. Electronically signed [...] W | | | | | | [place], | | | | | | [place] [address] | | | | | | [phone] | | | | | | | | +--------+ + + + + | 05/01/ | Procedure | Cardiology | | | | 2019 | visit | | | | +--------+ + + + + | 05/01/ | Office | Cardiology | [place], | | | 2019 | Visit | | [address] | | | | | | [place], | | | | | | [place] [address] | | | | | | [phone] | | | | | | | | +--------+ + + + + | 05/21/ | Implant | Cardiology | Daljit Singletary, | Remote Device | 2019 | Monitor | | [address] [place] | Interrogation | | | | | [place], | (Primary Dx); | | | | | [place] [address] | Pacemaker; | | | | | [phone] | Sinoatrial node | | | | [...] of unspecified type of vessel, | | shinnecock or graft | + + | Hypertension Unspecified essential hypertension | + + | Syncope Syncope and collapse | + + | Hyperlipidemia Other and unspecified hyperlipidemia | + + documented in this encounter
--- OUTSIDE RECORDS SUMMARY | ~2020-04-15 | XMS | Encounter Summary ---
Demographics + + + | Address | [address] | | | [place] [address] | + + + | Home Phone [...] Team Providers + +------+ + | Care Education Department Registrar Name | Role | Phone | + [...] 2012 | | CARDIOLOGY [address] | ELEVATED GUARD [address] [place] | | | | | [place], | [place], [place] | | | | | [place] [address] | [address] | | | | | [phone] | | | +--------+ + + + [...] W | | | | | | [place], | | | | | | [place] [address] | | | | | | [phone] | | | | | | | | +--------+ + + + + | 05/01/ | Procedure | Cardiology | | | | 2019 | visit | | | | +--------+ + + + + | 05/01/ | Office | Cardiology | Silvia, | | | 2019 | Visit | | [address] | | | | | | [place], | | | | | | [place] [address] | | | | | | [phone] | | | | | | | | +--------+ + + + + | 05/21/ | Implant | Cardiology | Daljit Singletary, | Remote Device | 2019 | Monitor | | MD [address] | Interrogation | | | | | [place], | (Primary Dx); | | | | | [place] [address] | Pacemaker; | | | | | [phone] | Sinoatrial node | | | | | | dysfunction (HCC) | | | | | | with symptomatic | | | | | | bradycardia | +--------+ + + + + documented as of this encounter Visit Diagnoses Not on filedocumented in this encounter"
--- OUTSIDE RECORDS SUMMARY | ~2020-04-15 | XMS | Encounter Summary ---
Demographics + + + | Address | [address] | | | [place] [address] | + + + | Home Phone [...] Team Providers + +------+ + | Care Molding Machine Setter Name | Role | Phone | + +------+ + PCP | Unavailable | + +------+ + Encounter Details +--------+ + + + + | Date | Type | Department | Care Team | Description | +--------+ + + + + | 07/20/ | [facility] | [facility] | Hunter Atnunez, | | | 2009 - | Encounter | MED CTR MED ONC | [address] | | | | | [address] [place] | [place] | | | 07/24/ | | [place] [address] | [address] | | | 2009 | | [phone] | | | +--------+ + + + [...] W | | | | | | [place], | | | | | | [place] [address] | | | | | | [phone] | | | | | | | | +--------+ + + + + | 05/01/ | Procedure | Cardiology | | | | 2019 | visit | | | | +--------+ + + + + | 05/01/ | Office | Cardiology | Silvia | | | 2019 | Visit | | [address] | | | | | | [place], | | | | | | [place] [address] | | | | | | [phone] | | | | | | | | +--------+ + + + + | 05/21/ | Implant | Cardiology | Daljit Singletary, | Remote Device | 2019 | Monitor | | MD Sim [place] | Interrogation | | | | | [place], | (Primary Dx); | | | | | [place] [address] | Pacemaker; | | | | | [phone] | Sinoatrial node | | | | | | dysfunction (HCC) | | | | | | with symptomatic | | | | | | bradycardia | +--------+ + + + + documented as of this encounter Visit Diagnoses Not on filedocumented in this encounter"
--- OUTSIDE RECORDS SUMMARY | ~2020-04-15 | XMS | Encounter Summary ---
Demographics + + + | Address | [address] | | | [place] [address] | + + + | Home Phone [...] Providers + +------+ + | Care Insurance Processing Clerk Name | Role | Phone | [...] + | 09/13/ | Office | [facility] | Bahman Gant MD | Other dysphagia | | 2013 | Visit | OTOLARYNGOLOGY [address] | [address] [place] | (Primary Dx) | | | | [address] | [address] [place], | | | | | [place], [place] | [place] [address] | | | | | [address] | [phone] | | | | | [phone] | | | +--------+---------+ + + + [...] MD - 09/13/2013 5:46 PM PDTSee dictation #[id number] signed by Joseph Gant MD at 09/13/2013 5:52 PM Bahman Lamb MD - 09/13/2013 12:00 AM PDT ENT AND AUDIOLOGY [address] [facility] [address] [place] [address] FAX: [phone] OFFICE VISIT The patient gives a history [...] Gant MD GM / MS JOB #: [id number] signed by Bahman Gant MD at 09/14/2013 [...] | | | | | | [place] [address] | | | | | | [phone] | | | | | | | | +--------+ + + + + | 05/01/ | Procedure | Cardiology | | | 2019 | visit | | | | +--------+ + + + + | 05/01/ | Office | Cardiology | Silvia, | | | 2019 | Visit | | [address] | | | | | | [place], | | | | | | [place] [address] | | | | | | [phone] | | | | | | | | +--------+ + + + + | 05/21/ | Implant | Cardiology | Daljit Singletary, | Remote Device | | 2019 | Monitor | | MD Sim [facility] | Interrogation | | | | | [place], | (Primary Dx); | | | | | [place] [address] | Pacemaker; | | | | | [phone] | Sinoatrial node | | | | [...]
--- OUTSIDE RECORDS SUMMARY | ~2020-04-15 | XMS | Encounter Summary ---
Demographics + + + | Address | [address] | | | [place] [address] | + + + | Home Phone [...] Providers + +------+ + | Care District Claims Manager Name | Role | Phone | [...] 2019 | | CARDIOLOGY [address] | School Supervisor | | | | | [place], | | | | | | [place] [address] | | | | | | [phone] | | | +--------+ + + + [...] W | | | | | | [place], | | | | | | [place] [address] | | | | | | [phone] | | | | | | | | +--------+ + + + + | 05/01/ | Procedure | Cardiology | | | | 2019 | visit | | | | +--------+ + + + + | 05/01/ | Office | Cardiology | Silvia, | | | 2019 | Visit | | [address] | | | | | | [place], | | | | | | [place] [address] | | | | | | [phone] | | | | | | | | +--------+ + + + + | 05/21/ | Implant | Cardiology | Daljit Singletary, | Remote Device | | 2019 | Monitor | | MD [address] [facility] | Interrogation | | | | | [place], | (Primary Dx); | | | | | [place] [address] | Pacemaker; | | | | | [phone] | Sinoatrial node | | | | [...] | EXTERNAL LAB: ALT | Routin | 06/02/2019 | | Results [...] | | | | | | | Polish, | | | | | | External [...]
--- OUTSIDE RECORDS SUMMARY | ~2020-04-15 | XMS | Encounter Summary ---
Demographics + + + | Address | [address] [place] [address] [address] | | | [place] [address] | + + + | Home Phone | | + + + | Preferred Language | Unknown | + + + | Marital Status | | + + + | Scientology Affiliation | Unknown | + + + [...] [place] | | | | | [address] | | + + + + + Care Team Providers + +------+ + | Care Acquisition Editor Name | Role | Phone | [...] | | | | | Unintentiona | [place], [place] | | | | | | l weight | [address] | | | | | | loss | Phone: | | | | | | Procedures | [phone] | | | | | | CONSULT TO | Fax: | | | | | | NON - IVETTE | [phone] | | | | | | PROVIDER [...] | | 2019 | | Center at [facility] [address] | MD [address] | normal, recommend | | | | [address] | [place], [place] | hyoscyamine) | | | | Mailcode: Sharon | [address] | | | | | for Health and | [phone] | | | | | [facility], [facility] [address] | | | | | | [place], [place] | | | | | | [address] | | | | | | [phone] | | | +--------+ + + + [...]
--- OUTSIDE RECORDS SUMMARY | ~2020-04-15 | XMS | Encounter Summary ---
Demographics + + + | Address | [address] | | | [place] [address] | + + + | Home Phone [...] Team Providers + +------+ + | Care Buyer Agent Name | Role | Phone | [...] | | CARDIOLOGY [address] | [address] [place] | | | | | [place], | [place], | | | | | [place] [address] | [place] [address] | | | | | [phone] | [phone] | | | | | | | [...] [place], | | | | | | [place] [address] | | | | | | [phone] | | | | | | | | +--------+ + + + + | 05/01/ | Procedure | Cardiology | | | | 2019 | visit | | | | +--------+ + + + + | 05/01/ | Office | Cardiology | [place]via, | | | 2019 | Visit | | [address] | | | | | | [place], | | | | | | [place] [address] | | | | | | [phone] | | | | | | | | +--------+ + + + + | 05/21/ | Implant | Cardiology | Daljit Singletary, | Remote Device | | 2019 | Monitor | | MD [address] [place] | Interrogation | | | | | [place], | (Primary Dx); | | | | | [place] [address] | Pacemaker; | | | | | [phone] | Sinoatrial node | | | | [...] + + | Hemoglobin | 16.3 | 13.7 - 16.7 | [...] bulin Ratio | | | [address] | [...] [address] | [place] | [phone] | | [facility] | | [address] | | | - LABORATORY | | | | + + + + + | [address] | [address] [place] [address] | [place] | | | [facility] | | [address], [facility] | | | - LABORATORY | [...] + + + | Hemoglobin | 17.4 (A) | 13.7 - 16.7 [...] | + +---------+ + + | [address] | | | | | [facility] | | | | | - LABORATORY | | | | + +---------+ + + documented in this encounter Visit Diagnoses Not on filedocumented in this encounter"
--- OUTSIDE RECORDS SUMMARY | ~2020-04-15 | XMS | Encounter Summary ---
Demographics + + + | Address | [address] | | | [place] [address] | + + + | Home Phone [...] Team Providers + +------+ + | Care Landfill Gas Collection Operator Name | Role | Phone | [...] + + + + | 01/25/ | Telephone | [facility] | Daljit Singletary, | Appointment | | 2017 | | CARDIOLOGY [address] | MD [address] [place] | | | | | [place], | [place], | | | | | [place] [address] | [place] [address] | | | | | [phone] | [phone] | | | | | | | [...] [place], | | | | | | [place] [address] | | | | | | [phone] | | | | | | | [...] | | | | | | [place] [address] | | | | | | [phone] | | | | | | | | +--------+ + + + + | 05/21/ | Implant | Cardiology | Daljit Singletary, | Remote Device | | 2019 | Monitor | | [facility] | Interrogation | | | | | [place], | (Primary Dx); | | | | | [place] [address] | Pacemaker; | | | | | [phone] | Sinoatrial node | | | | | | dysfunction (HCC) | | | | | | with symptomatic | | | | | | bradycardia | +--------+ + + + + documented as of this encounter Visit Diagnoses Not on filedocumented in this encounter"
--- OUTSIDE RECORDS SUMMARY | ~2020-04-15 | XMS | Encounter Summary ---
Demographics + + + | Address | [address] | | | [place] [address] | + + + | Home Phone [...] Team Providers + +------+ + | Care Rubber Engraver Name | Role | Phone | + +------+ + | Michael Amanda DO | PCP | | + +------+ + Encounter Details +--------+ + + + + | Date | Type | Department | Care Team | Description | +--------+ + + + + | 10/01/ | Hospital | [facility] | Mary Bradshaw | | | 2013 | Encounter | [facility] | Guy Larkin MD | | | | | [address] [place] | [address] | | | | | [place], [place] | [place], [place] | | | | | [address] | [address] | | | | | [phone] | | | +--------+ + + + [...] + + +---------+ + + | [place]-3 Fatty | CAPS, one capsule by [...] | | | | | | [place] [address] | | | | | | [phone] | | | | | | | | +--------+ + + + + | 05/01/ | Procedure | Cardiology | | | | 2019 | visit | | | | +--------+ + + + + | 05/01/ | Office | Cardiology | Silvia, | | | 2019 | Visit | | [address] | | | | | | [place], | | | | | | [place] [address] | | | | | | [phone] | | | | | | | | +--------+ + + + + | 05/21/ | Implant | Cardiology | Daljit Singletary, | Remote Device | | 2019 | Monitor | | [address] [place] | Interrogation | | | | | [place], | (Primary Dx); | | | | | [place] [address] | Pacemaker; | | | | | [phone] | Sinoatrial node | | | | [...] + | MISCELLANEOUS LAB | | | [phone] | + +---------+ + + | MISCELANIOUS LAB | | | [phone] | + +---------+ + + documented in this encounter Visit Diagnoses Not on filedocumented in this encounter"
--- OUTSIDE RECORDS SUMMARY | ~2020-04-15 | XMS | Encounter Summary ---
Demographics + + + | Address | [address] | | | [place] [address] | + + + | Home Phone [...] Team Providers + +------+ + | Care Sweatband Decorating Machine Operator Name | Role | Phone [...] + + | 12/19/ | Telephone | [facility] | Kirk French | Triage (chronic IBS) | | 2020 | | [facility] | MD Brea [address] | | | | | [facility] [address] | | | | | [address] | [place] [address] | | | | | [place], [place] | [phone] | | | | | [address] | | | | | | [phone] | | | +--------+ + + + [...] | | | | | | [place] [address] | | | | | | [phone] | | | | | | | | +--------+ + + + + | 05/01/ | Procedure | Cardiology | | | | 2019 | visit | | | | +--------+ + + + + | 05/01/ | Office | Cardiology | Silvia, | | | 2019 | Visit | | [address] | | | | | | [place], | | | | | | [place] [address] | | | | | | [phone] | | | | | | | | +--------+ + + + + | 05/21/ | Implant | Cardiology | Daljit Singletary, | Remote Device | 2019 | Monitor | | [facility] | Interrogation | | | | | [place], | (Primary Dx); | | | | | [place] [address] | Pacemaker; | | | | | [phone] | Sinoatrial node | | | | | | dysfunction (HCC) | | | | | | with symptomatic | | | | | | bradycardia | +--------+ + + + + documented as of this encounter Visit Diagnoses Not on filedocumented in this encounter"
--- OUTSIDE RECORDS SUMMARY | ~2020-04-15 | XMS | Encounter Summary ---
Demographics + + + | Address | [address] | | | [place] [address] | + + + | Home Phone [...] Team Providers + +------+ + | Care Cnc Mechanic Name | Role | Phone | [...] 2019 | | GASTROENTEROLOGY | MD [address] | | | | | [address] | [address]. [place] | | | | | [address] [place] [address] | [place] [address] | | | | | [address] | | | | | | [phone] | | | +--------+ + + + [...] | | | | | | [place] [address] | | | | | | [phone] | | | | | | | [...] | | | | | | [place] [address] | | | | | | [phone] | | | | | | | | +--------+ + + + + | 05/21/ | Implant | Cardiology | Daljit Singletary, | Remote Device | | 2019 | Monitor | | MD [address] [place] | Interrogation | | | | | [place], | (Primary Dx); | | | | | [place] [address] | Pacemaker; | | | | | [phone] | Sinoatrial node | | | | [...] | | | | | Emmanuel Daniel [facility] | | | | + + [...]
--- OUTSIDE RECORDS SUMMARY | ~2020-04-15 | XMS | Encounter Summary ---
Demographics + + + | Address | [address] | | | [place] [address] | + + + | Home Phone [...] Team Providers + +------+ + | Care Mica Laminating Machine Feeder Name | Role | Phone | [...] [place] | | | | | | [address] | | | | | | [phone] | | | +--------+ + + + [...] W | | | | | | [place], | | | | | | [place] [address] | | | | | | [phone] | | | | | | | | +--------+ + + + + | 05/01/ | Procedure | Cardiology | | | | 2019 | visit | | | | +--------+ + + + + | 05/01/ | Office | Cardiology | Silvia, | | | 2019 | Visit | | [address] | | | | | | [place], | | | | | | [place] [address] | | | | | | [phone] | | | | | | | | +--------+ + + + + | 05/21/ | Implant | Cardiology | Daljit Singletary, | Remote Device | | 2019 | Monitor | | [facility] | Interrogation | | | | | [place] [place], | (Primary Dx); | | | | | [place] [address] | Pacemaker; | | | | | [phone] | Sinoatrial node | | | | | | dysfunction (HCC) | | | | | | with symptomatic | | | | | | bradycardia | +--------+ + + + + documented as of this encounter Visit Diagnoses Not on filedocumented in this encounter"
--- OUTSIDE RECORDS SUMMARY | ~2020-04-15 | XMS | Encounter Summary ---
Demographics + + + | Address | [address] | | | [place] [address] | + + + | Home Phone [...] Team Providers + +------+ + | Care Tier In Name | Role | Phone | + +------+ + | Michael Amanda DO | PCP | | + +------+ + Encounter Details +--------+ + + + + | Date | Type | Department | Care Team | Description | +--------+ + + + + | 05/11/ | Hospital | [facility] | Conversion | Lumbago; | | 2013 | Encounter | [facility] XRAY | Transaction, | Postlaminectomy | | | | [address] | Provider Unknown | syndrome, cervical | | | | [place], [place] | | region; Cervicalgia | | | | [address] | (Fax) | | | | | [phone] | | | +--------+ + + + [...] + + + +---------+ + + | [place]-3 Fatty | CAPS, one capsule by | [...] 1147 Date of Service: 05/11/141145 Status: Signed English And Reading Instructor: Christine Mcgraw Report called to Brittany morejon [...] W | | | | | | [place], | | | | | | [place] [address] | | | | | | [phone] | | | | | | | | +--------+ + + + + | 05/01/ | Procedure | Cardiology | | | | 2019 | visit | | | | +--------+ + + + + | 05/01/ | Office | Cardiology | Silvia, | | | 2019 | Visit | | [address] | | | | | | [place], | | | | | | [place] [address] | | | | | | [phone] | | | | | | | | +--------+ + + + + | 05/21/ | Implant | Cardiology | Daljit Singletary, | Remote Device | 2019 | Monitor | | MD [address] [place] | Interrogation | | | | | [place], | (Primary Dx); | | | | | [place] [address] | Pacemaker; | | | | | [phone] | Sinoatrial node | | | | [...]
--- OUTSIDE RECORDS SUMMARY | ~2020-04-15 | XMS | Encounter Summary ---
Demographics + + + | Address | [address] | | | [place] [address] | + + + | Home Phone [...] Providers + +------+ + | Care Marketing Research Analyst Name | Role | Phone | [...] unspecified | [address] | | | | | type | [address] | [place], | | | | | Procedures | [place], | [place] | | | | | [place] | [place] [address] | [address] | | | | | Stress Test | Phone: | Phone: | | | | | (Vasodilator | [phone] | [phone] | | | | | ) CHG | Fax: | Fax: | | | | | MYOCARDIAL | [phone] | [phone] | | | | | SPECT | | | | | | | MULTIPLE | | | | | | | STUDIES NH | | | | | | | CV STRS TST | | | | | | | XERS&/OR RX | | | | | | | CONT ECG W/O | | | | | | | I&R [place] | | | | | | | [...] unspecified | [address] | [address] | | | | | type | [address] | [place], | | | | | Procedures | [place], | [place] | | | | | [place] | [place] [address] | [address] | | | | | Stress Test | Phone: | Phone: | | | | | (Vasodilator | [phone] | [phone] | | | | | ) CHG | Fax: | Fax: | | | | | MYOCARDIAL | [phone] | [phone] | | | | | SPECT | | | | | | | MULTIPLE | | | | | | | STUDIES NH | | | | | | | CV STRS TST | | | | | | | XERS&/OR RX | | | | | | | CONT ECG W/O | | | | | | | I&R NH | | | | | | | [...] + + | 07/21/ | Hospital | [facility] | Daljit Singletary, | Chest pain, | | 2018 | Encounter | MED CTR NUCLEAR | MD [address] | unspecified type | | | | MEDICINE [address] | [address] [place], | | | | | [place] | [place] [address] | | | | | [place] [address] | [phone] | | | | | [phone] | | | | | | | Sales Attendant Building [employer]avel | | +--------+ + + + + [...] + + + +---------+ + + | [place]-3 Fatty | CAPS, one capsule by | [...] | | | | | | [place] [address] | | | | | | [phone] | | | | | | | | +--------+ + + + + | 05/01/ | Procedure | Cardiology | | | | 2019 | visit | | | | +--------+ + + + + | 05/01/ | Office | Cardiology | Sil[place], | | | 2019 | Visit | | [address] | | | | | | [place], | | | | | | [place] [address] | | | | | | [phone] | | | | | | | | +--------+ + + + + | 05/21/ | Implant | Cardiology | Daljit Singletary, | Remote Device | 2019 | Monitor | | [address] [place] | Interrogation | | | | | [place], | (Primary Dx); | | | | | [place] [address] | Pacemaker; | | | | | [phone] | Sinoatrial node | | | | [...] | | | | | doctor, Starting [facility] 07/21/18 at | | | | [...] | | | | | | Starting [facility] 07/21/18 at 0822, For | | | | | | | 1 dose, Nuclear Medicine | | | | | | + +-------+ + +---+---+ +---+---+ | | | +---+---+ documented in this encounter"
--- OUTSIDE RECORDS SUMMARY | ~2020-04-15 | XMS | Encounter Summary ---
Demographics + + + | Address | [address] | | | [place] [address] | + + + | Home Phone [...] Providers + +------+ + | Care Aluminum Container Tester Name | Role | Phone | + +------+ + | Michael Amanda DO | PCP | | + +------+ + Encounter Details +--------+ + + + + | Date | Type | Department | Care Team | Description | +--------+ + + + + | 01/31/ | Hospital | [facility] | Adrian Gutierrez MD | | | 2012 | Encounter | [facility] | [address] | | | | | EMERGENCY CENTER | [place], [place] | | | | | [address] | [address] | | | | | [place] | [phone] | | | | | [address] | | | | | | [phone] | | | +--------+ + + + [...] + + + +---------+ + + | [place]-3 Fatty | CAPS, one capsule by | [...] | | | | | | [place] [address] | | | | | | [phone] | | | | | | | | +--------+ + + + + | 05/01/ | Procedure | Cardiology | | | | 2019 | visit | | | | +--------+ + + + + | 05/01/ | Office | Cardiology | Silvia, | | | 2019 | Visit | | [address] | | | | | | [place], | | | | | | [place] [address] | | | | | | [phone] | | | | | | | | +--------+ + + + + | 05/21/ | Implant | Cardiology | Daljit Singletary, | Remote Device | 2019 | Monitor | | MD [address] [place] | Interrogation | | | | | [place], | (Primary Dx); | | | | | [place] [address] | Pacemaker; | | | | | [phone] | Sinoatrial node | | | | [...] + + + | Exam Performed Location: [facility] | MISCELANIOUS | | CHEST CLINICAL [...] | an acute cardiopulmonary process. S: SQ ([id number]) Signed by: | | | JAYNE SPEAR MD | | + + + + + | Procedure Note | + + | Kevin, Rad Conversion - 09/13/2013 10:25 PM PDT Exam Performed [facility] CHESTCLINICAL INFORMATION:Shortness of | | breath.COMPARISON:None.FINDINGS:There is a left subclavian dual lead cardiac pacer. The | | heart sizeand mediastinal contours are normal. The pulmonary vasculature isnormal. No | | focal airspace opacities, pleural effusions, orpneumothorax. Cervical fusion hardware | | is noted. No acute osseousfindings.IMPRESSION:No evidence of an acute cardiopulmonary | | process.S: SQ ([id number]) Signed by: JAYNE SPEAR MD | |COMPARISON: [...] | | | | | |S: SQ ([id number]) Signed by: JAYNE SPEAR MD | + + + +---------+ + + | Performing | Address | City/State/Zipcode | Phone Number | | Organization | | | | + +---------+ + + | MISCELLANEOUS LAB | | | [phone] | + +---------+ + + | MISCELANIOUS LAB | | | [phone] | + +---------+ + + Troponin I [...] + + | [facility] | [address] | [place] [address] | | | [facility] | [...] + + | [facility] | [address] | [place] [address] | | | [facility] | [...] + + + | [facility] | [address] | [place] [address] | | | [facility] | [...] + + | [facility] | [address] | [place] [address] | | | [facility] | | | | | LABORATORY | | | | + + + + + | [facility] | | | | | [facility] | | | | | [...] + + | Glucose | 154 (H)Comment: Togolese | 65 - 99 mg/dL | [facility] [...] + + | [facility] | [address] | [place] [address] | | | [facility]ART [facility] | | | | | LABORATORY | | | | + + + + + | [facility] | | | | | HEART [facility] | | | | | LABORATORY | | | | + + + + + documented in this encounter Visit Diagnoses Not on filedocumented in this encounter"
--- OUTSIDE RECORDS SUMMARY | ~2020-04-15 | XMS | Encounter Summary ---
Demographics + + + | Address | [address] | | | [place] [address] | + + + | Home Phone [...] Providers + +------+ + | Care Data Migration Consultant Name | Role | Phone | + +------+ + PCP | Unavailable | + +------+ + Encounter Details +--------+ + + + + | Date | Type | Department | Care Team | Description | +--------+ + + + + | 10/13/ | Hospital | [facility] | | | | 2007 | Encounter | MED CTR EMERGENCY | | | | | | [place] [address] | | | | | | [place] | | | | | | [address] | | | | | | [phone] | | | +--------+ + + + [...] | | | | | | [place] [address] | | | | | | [phone] | | | | | | | | +--------+ + + + + | 05/01/ | Procedure | Cardiology | | | | 2019 | visit | | | | +--------+ + + + + | 05/01/ | Office | Cardiology | Silvia, | | | 2019 | Visit | | [address] | | | | | | [place], | | | | | | [place] [address] | | | | | | [phone] | | | | | | | | +--------+ + + + + | 05/21/ | Implant | Cardiology | Daljit Singletary, | Remote Device | 2019 | Monitor | | [address] [place] | Interrogation | | | | | [place], | (Primary Dx); | | | | | [place] [address] | Pacemaker; | | | | | [phone] | Sinoatrial node | | | | | | dysfunction (HCC) | | | | | | with symptomatic | | | | | | bradycardia | +--------+ + + + + documented as of this encounter Visit Diagnoses Not on filedocumented in this encounter"
--- OUTSIDE RECORDS SUMMARY | ~2020-04-15 | XMS | Encounter Summary ---
Demographics + + + | Address | [address] | | | [place] [address] | + + + | Home Phone [...] Team Providers + +------+ + | Care Form Maker Plaster Name | Role | Phone | + [...] + + | 01/25/ | Office | [facility] | Daljit Singletary, | Other chest pain | | 2012 | Visit | CARDIOLOGY [address] | [address] [place] | (Primary Dx); PVC's | | | | [place], | 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 [place]-3 Fatty Acids (SALMON OIL-1000 PO) CAPS, one [...] tablet Take 1,000 mg by mouth Daily. [place]-3 Fatty Acids (SALMON OIL-1000 PO) CAPS, one [...] | | | | | | [place] [address] | | | | | | [phone] | | | | | | | | +--------+ + + + + | 05/01/ | Procedure | Cardiology | | | | 2019 | visit | | | | +--------+ + + + + | 05/01/ | Office | Cardiology | Silvia | | | 2019 | Visit | | Janeen, SENIOR INVESTIGATOR [address] | | | | | | [place], | | | | | | [place] [address] | | | | | | [phone] | | | | | | | | +--------+ + + + + | 05/21/ | Implant | Cardiology | Daljit Singletary, | Remote Device | | 2020 | Monitor | | [address] [place] | Interrogation | | | | | [place], | (Primary Dx); | | | | | [place] [address] | Pacemaker; | | | | | [phone] | Sinoatrial node | | | | | | dysfunction ([facility]) | | | | | | [...]
--- OUTSIDE RECORDS SUMMARY | ~2020-04-15 | XMS | Encounter Summary ---
Demographics + + + | Address | [address] | | | [place] [address] | + + + | Home Phone [...] Providers + +------+ + | Care Senior Sharepoint Architect Name | Role | Phone | [...] 2019 | | GASTROENTEROLOGY | [address], [place] | | | | | [address] [place] | [address] [place], [place] | | | | | [address] [place], [place] | [address] | | | | | [address] | | | | | | [phone] | | | +--------+ + + + [...] | | | | | | [place] [address] | | | | | | [phone] | | | | | | | [...] | | | | | | [place] [address] | | | | | | [phone] | | | | | | | | +--------+ + + + + | 05/21/ | Implant | Cardiology | Daljit Singletary, | Remote Device | 2019 | Monitor | | [address] | Interrogation | | | | | [place], | (Primary Dx); | | | | | [place] [address] | Pacemaker; | | | | | [phone] | Sinoatrial node | | | | | | dysfunction (HCC) | | | | | | with symptomatic | | | | | | bradycardia | +--------+ + + + + documented as of this encounter Visit Diagnoses Not on filedocumented in this encounter"
--- OUTSIDE RECORDS SUMMARY | ~2020-04-15 | XMS | Encounter Summary ---
Demographics + + + | Address | [address] | | | [place] [address] | + + + | Home Phone [...] Team Providers + +------+ + | Care Helminthology Teacher Name | Role | Phone | [...] + + | 12/29/ | Office | [facility] | [place], | Ascending thoracic | | 2017 | Visit | CARDIOLOGY [address] | PARISA [address] | aortic aneurysm | | | | [place], | [place], | (HCC) (Primary Dx); | | | | [place] [address] | [place] [address] | Coronary artery | | | | [phone] | [phone] | disease involving | | | | | | [place] coronary | | | | | | artery of [place] | | | | | | heart [...] of non-critical coronary artery d isease involving [place] coronary artery of [place] heart without angina pectoris, essential h ypertension, [...] start Losartan 25 mg once every day, [facility] blood pressure log, and follow up in 3 months. Since that time, he went to the ER in [facility] with chest pain at the end [...] Preventative health care Coronary artery disease involving [place] coronary artery of [place] heart without angina pectoris Cannabis abuse, daily [...] 3RD DOSE, CALL 911 100 tablet 3 [place]-3 Fatty Acids (SALMON OIL-1000 PO) CAPS, one [...] was found Confirmed by SYDNI SINGLETARY MD ([id number]) on 06/23/2016 2:08:15 PM LAB RESULTS reviewed during visit today primarily from [facility]: LIPID Lab Results Component [...] PLTEX 129* 05/12/2016 I reviewed records from [facility] for office visit on [...] He is in class I of the [place] [employer] functional class. On physical examination there are no signs of fl uid overload. 2. Non-critical Coronary artery disease involving [place] coronary a rtery of [place] heart without angina pectoris: A. Normal exercise [...] ventricular arrhythmia performed by Dr. Gambino at [facility] on 01/30/2013. Patient had spontaneous PVCs [...] to go back in 3 days to [place] for an attempt of ablation under general [...] is a normal stable device function. Estimated videof.mei ng battery longevity is 5 years.. 5. Lightheadedness and dizziness/ presyncope: A. Episode of presyncope [facility], thought to have vasovagal symptoms. 6. [...] this chart may have been created with [employer] voice recognition software. Occasi onal wrong-word or [...] | | | | | | [place] [address] | | | | | | [phone] | | | | | | | [...] | | | | | | [place] [address] | | | | | | [phone] | | | | | | | | +--------+ + + + + | 05/21/ | Implant | Cardiology | Sydni Singletary, | Remote Device | 2019 | Monitor | | MD [address] [place] | Interrogation | | | | | [place], | (Primary Dx); | | | | | [place] [address] | Pacemaker; | | | | | [phone] | Sinoatrial node | | | | | | dysfunction ([facility]) | | | | | | with symptomatic | | | | | | bradycardia | +--------+ + + + + documented as of this encounter Visit Diagnoses + + | Diagnosis | + + | Ascending thoracic aortic aneurysm (HCC) - Primary Thoracic aneurysm without mention | | of rupture | + + | Coronary artery disease involving [place] coronary artery of [place] heart without | | angina pectoris | + + | Essential hypertension with goal blood pressure less than 130/80 | + + | Hyperlipidemia, mixed Mixed hyperlipidemia | + + documented in this encounter
--- OUTSIDE RECORDS SUMMARY | ~2020-04-15 | XMS | Encounter Summary ---
Demographics + + + | Address | [address] | | | [place] [address] | + + + | Home Phone [...] Team Providers + +------+ + | Care Explosive Ordnance Manager Name | Role | Phone | [...] [place] | | | | | | [address] | [address] Phone: | | | | | | Phone: | [phone] | | | | | | [phone] | Fax: | | | | | | Fax: | [phone] | | | | | | [phone] | | +--------+ + + + + [...] | diurnal enuresis | | | | [place], [place] | [place], [place] | (Primary Dx); [place] | | | | [address] | [address] | with | | | | [phone] | | obstruction/lower | | | | [...] Haleigh rodarte states that the surgeon in [place] who performed his neck surgery is no longer practicing a nd was apparently disciplined and had his license revoked by the [facility]. He has us ed marijuana for his [...] APNEA CONDS CLASSIFIED ELSEWHERE (12/15/2010); Ulcerative colitis ([facility]); Ches t pain; SINUS BRADYCARDIA; HEPATITIS B; PUD; FATTY LIVER DISEASE; SUBSTANCE ABUSE, MULTIPLE; Preventative health care (06/26/2013); Bladder troubles; Tuberculosis; Anginal pain ([facility]); St roke ([facility]); Prostate troubles; and Neurological disorder. Past Surgical [...] needed for Chest pain. 25 tablet 12 [place]-3 Fatty Acids (SALMON OIL-1000 PO) CAPS, one capsule by mouth daily twice daily ONE TOUCH DELICA LANCETS [facility] Check glucose as needed for hypoglycemia 100 [...] Date/Time: 04/22/2012 16:56 Transcribed Date/Time: 04/22/2012 17:32 Can Maker: <Electronically Signed by Jama Solis MD> 04/23/12 [...] Date/Time: 04/23/2012 10:54 Transcribed Date/Time: 04/23/2012 11:06 Can Maker: <Electronically Signed by Jama Solis MD> 04/24/12 [id number] IMPRESSION: 1. Nocturnal and diurnal enuresis. I [...] bladder, still believe that the recommendations from [facility] neurosurgeon, Dr. Demarco, on 03/13/2014 would [...] have not thoroughly proofread this note, and tape maker erro rs may occur. CC: Kirk French [...] | | | | | | [place] [address] | | | | | | [phone] | | | | | | | | +--------+ + + + + | 05/01/ | Procedure | Cardiology | | | | 2019 | visit | | | | +--------+ + + + + | 05/01/ | Office | Cardiology | Silvia, | | | 2019 | Visit | | PARISA Vernon W | | | | | | [place], | | | | | | [place] [address] | | | | | | [phone] | | | | | | | | +--------+ + + + + | 05/21/ | Implant | Cardiology | Daljit Singletary, | Remote Device | | 2019 | Monitor | | [address] [place] | Interrogation | | | | | [place], | (Primary Dx); | | | | | [place] [address] | Pacemaker; | | | | | [phone] | Sinoatrial node | | | | [...] 1.001 - 1.030 | | | | [place], | | | | | | UA, [...]
--- OUTSIDE RECORDS SUMMARY | ~2020-04-15 | XMS | Encounter Summary ---
Demographics + + + | Address | [address] | | | [place] [address] | + + + | Home Phone [...] Providers + +------+ + | Care Labor Utilization Superintendent Name | Role | Phone | + +------+ + PCP | Unavailable | + +------+ + Encounter Details +--------+ + + + + | Date | Type | Department | Care Team | Description | +--------+ + + + + | 01/31/ | Hospital | [facility] | | | | 2008 | Encounter | MED [facility] EMERGENCY | | | | | | [place] [address] | | | | | | [place] | | | | | | [address] | | | | | | [phone] | | | +--------+ + + + [...] | | | | | | [place] [address] | | | | | | [phone] | | | | | | | | +--------+ + + + + | 05/01/ | Procedure | Cardiology | | | | 2019 | visit | | | | +--------+ + + + + | 05/01/ | Office | Cardiology | Silvia, | | | 2019 | Visit | | [address] | | | | | | [place], | | | | | | [place] [address] | | | | | | [phone] | | | | | | | | +--------+ + + + + | 05/21/ | Implant | Cardiology | Daljit Singletary, | Remote Device | 2019 | Monitor | | [address] [place] | Interrogation | | | | | [place], | (Primary Dx); | | | | | [place] [address] | Pacemaker; | | | | | [phone] | Sinoatrial node | | | | | | dysfunction (HCC) | | | | | | with symptomatic | | | | | | bradycardia | +--------+ + + + + documented as of this encounter Visit Diagnoses Not on filedocumented in this encounter"
--- OUTSIDE RECORDS SUMMARY | ~2020-04-15 | XMS | Encounter Summary ---
Demographics + + + | Address | [address] | | | [place] [address] | + + + | Home Phone [...] Providers + +------+ + | Care Marketing Intelligence Manager Name | Role | Phone | [...] | CARDIOLOGY [address] | [address] | card ) | | | | [place], | [place], | | | | | [place] [address] | [place] [address] | | | | | [phone] | [phone] | | | | | | | [...] W | | | | | | [place], | | | | | | [place] [address] | | | | | | [phone] | | | | | | | | +--------+ + + + + | 05/01/ | Procedure | Cardiology | | | | 2019 | visit | | | | +--------+ + + + + | 05/01/ | Office | Cardiology | Silvia, | | | 2019 | Visit | | [address] | | | | | | [place], | | | | | | [place] [address] | | | | | | [phone] | | | | | | | | +--------+ + + + + | 05/21/ | Implant | Cardiology | Daljit Singletary, | Remote Device | | 2019 | Monitor | | [address] | Interrogation | | | | | [place], | (Primary Dx); | | | | | [place] [address] | Pacemaker; | | | | | [phone] | Sinoatrial node | | | | | | dysfunction (HCC) | | | | | | with symptomatic | | | | | | bradycardia | +--------+ + + + + documented as of this encounter Visit Diagnoses Not on filedocumented in this encounter"
--- OUTSIDE RECORDS SUMMARY | ~2020-04-15 | XMS | Encounter Summary ---
Demographics + + + | Address | [address] | | | [place] [address] | + + + | Home Phone [...] Team Providers + +------+ + | Care 7Th Grade Social Studies Teacher Name | Role | Phone | + +------+ + | Kirk French MD | PCP | | + +------+ + Encounter Details +--------+ + + + + | Date | Type | Department | Care Team | Description | +--------+ + + + + | 12/23/ | Emergency | [facility] | Cristal Alexander, | Chronic neck pain; | | 2015 | | [facility]ENTER | DO [address] | Headache(784.0) | | | | EMERGENCY CENTER | [place] [address] | | | | | [address] | [phone] | | | | | [place], [place] | | | | | | [address] | | | | | | [phone] | | | +--------+ + + + [...] + + +---------+ + + | [place]-3 Fatty | CAPS, one capsule by | [...] | | | | | | | #[id number], exp 07/2016 | | | | | [...] | | | | | | [place] [address] | | | | | | [phone] | | | | | | | [...] | | | | | | [place] [address] | | | | | | [phone] | | | | | | | | +--------+ + + + + | 05/21/ | Implant | Cardiology | Daljit Singletary, | Remote Device | | 2019 | Monitor | | [facility] | Interrogation | | | | | [place], | (Primary Dx); | | | | | [place] [address] | Pacemaker; | | | | | [phone] | Sinoatrial node | | | | [...] Conversion - 07/07/2019 5:05 AM PDT PINA [id number] years MaleCT | | CERVICAL SPINE WO [...]
--- OUTSIDE RECORDS SUMMARY | ~2020-04-15 | XMS | Encounter Summary ---
Demographics + + + | Address | [address] | | | [place] [address] | + + + | Home Phone [...] Team Providers + +------+ + | Care Market Research Analyst Name | Role | Phone [...] Provider Unknown | | | | | [place], [place] | [phone] | | | | | [address] | | | | | | [phone] | | | +--------+ + + + [...] + + + +---------+ + + | [place]-3 Fatty | CAPS, one capsule by | [...] | | | | | | | #[id number], exp 07/2016 | | | | | [...] | | | | | | [place] [address] | | | | | | [phone] | | | | | | | | +--------+ + + + + | 05/01/ | Procedure | Cardiology | | | | 2019 | visit | | | | +--------+ + + + + | 05/01/ | Office | Cardiology | [place], | | | 2019 | Visit | | PARISA Vernon [address] | | | | | | [place], | | | | | | [place] [address] | | | | | | [phone] | | | | | | | | +--------+ + + + + | 05/21/ | Implant | Cardiology | Daljit Singletary, | Remote Device | | 2020 | Monitor | | [address] | Interrogation | | | | | [place], | (Primary Dx); | | | | | [place] [address] | Pacemaker; | | | | | [phone] | Sinoatrial node | | | | | | dysfunction ([facility]) | | | | | | [...]
--- OUTSIDE RECORDS SUMMARY | ~2020-04-15 | XMS | Encounter Summary ---
Demographics + + + | Address | [address] | | | [place] [address] | + + + | Home Phone [...] Team Providers + +------+ + | Care Sheet Heater Name | Role | Phone | [...] | | CARDIOLOGY [address] | Janeen ASSESSOR [address] | mixed | | | | [place], | [place], | | | | | [place] [address] | [place] [address] | | | | | [phone] | [phone] | | | | | | | [...] W | | | | | | [place], | | | | | | [place] [address] | | | | | | [phone] | | | | | | | | +--------+ + + + + | 05/01/ | Procedure | Cardiology | | | | 2019 | visit | | | | +--------+ + + + + | 05/01/ | Office | Cardiology | Silvia, | | | 2019 | Visit | | PARISA [address] | | | | | | [place], | | | | | | [place] [address] | | | | | | [phone] | | | | | | | | +--------+ + + + + | 05/21/ | Implant | Cardiology | Daljit Singletary, | Remote Device | | 2020 | Monitor | | MD Chiquis Kauffmanar | Interrogation | | | | | [place], | (Primary Dx); | | | | | [place] [address] | Pacemaker; | | | | | [phone] | Sinoatrial node | | | | [...]
--- OUTSIDE RECORDS SUMMARY | ~2020-04-15 | XMS | Encounter Summary ---
Demographics + + + | Address | [address] | | | [place] [address] | + + + | Home Phone [...] Team Providers + +------+ + | Care In Mold Coater Name | Role | Phone | [...] type ER | [address] | [address] | | | | | FUP | [place] | [place], | | | | | Procedures | [place], [place] | [place] [address] | | | | | FUP - SUW & | [address] | Phone: | | | | | EVM PT, LAST | Phone: | [phone] | | | | | SEEN | [phone] | Fax: | | | | | 08-24-18 | Fax: | [phone] | | | | | | [phone] | | +--------+ + + + + [...] | | | CENTER [address] | [address] [place] | (Primary Dx) | | | | [place], [place] | [place] [address] | | | | | [address] | [phone] | | | | | [phone] | | | +--------+ + + + [...] through Care Everywhere.Chest Pain, Unc ertain Cause (Khmer)documented in this encounter Medications at Time of [...] + + + +---------+ + + | [place]-3 Fatty | CAPS, one capsule by | [...] | | | | | | [place] [address] | | | | | | [phone] | | | | | | | | +--------+ + + + + | 05/01/ | Procedure | Cardiology | | | | 2019 | visit | | | | +--------+ + + + + | 05/01/ | Office | Cardiology | Silvia, | | | 2019 | Visit | | PARISA Vernon [address] | | | | | | [place], | | | | | | [place] [address] | | | | | | [phone] | | | | | | | | +--------+ + + + + | 05/21/ | Implant | Cardiology | Daljit Singletary, | Remote Device | 2019 | Monitor | | [address] | Interrogation | | | | | [place], | (Primary Dx); | | | | | [place] [address] | Pacemaker; | | | | | [phone] | Sinoatrial node | | | | [...] | | | | ANGELA MARADIAGA MD ([id number]) | | | | | | on [...] [address] | [place] | [phone] | | [facility] | | [address] | | | - LABORATORY | | [...] [address] | [place] | [phone] | | [facility] | | [address] | | | - LABORATORY | | [...] - 1.030 | [facility] | | | [place], | | | [facility] | | [...] [address] | [place] | [phone] | | [facility] | | [address] | | | - LABORATORY | | [...] [address] | [place] | [phone] | | [facility] | | [address] | | | - LABORATORY | | [...] [address] | [place] | [phone] | | [facility] | | [address] | | | - LABORATORY | | [...] [address] | [place] | [phone] | | [facility] | | [address] | | | - LABORATORY | | [...] | 0.96 | 0.60 - 1.30 | [facility] | | | | | mg/dL [...] mL/min/1.73m2 | [facility] | | | TURKISH | RATE,ESTIMATED | | MEDICAL | | | | mL/min/1.31x5Cggt than | | CENTER - | | [...] [address] | [place] | [phone] | | [facility] | | [address] | | | - LABORATORY | | [...] + | [address] | [address] | [place] | [phone] | | [facility] | | [address] | | | - LABORATORY | | [...] | | | | HIREN WINKLER, ANGELA ([id number]) | | | | | | on [...]
--- OUTSIDE RECORDS SUMMARY | ~2020-04-15 | XMS | Encounter Summary ---
Demographics + + + | Address | [address] | | | [place] [address] | + + + | Home Phone [...] Team Providers + +------+ + | Care Fur Liner Name | Role | Phone | + +------+ + | Kirk French MD | PCP | | + +------+ + Encounter Details +--------+ + + + + | Date | Type | Department | Care Team | Description | +--------+ + + + + | 11/17/ | Telephone | [facility] | Kirk French | | | 2019 | | GERALDINE Guidry MD [address] | | | | | PRIMARY [facility] [address] | | | | | [address] | [place] [address] | | | | | [place], [place] | [phone] | | | | | [address] | | | | | | [phone] | | | +--------+ + + + [...] | | | | | | [place] [address] | | | | | | [phone] | | | | | | | | +--------+ + + + + | 05/01/ | Procedure | Cardiology | | | | 2019 | visit | | | | +--------+ + + + + | 05/01/ | Office | Cardiology | Silvia, | | | 2019 | Visit | | PARISA Vernon [address] | | | | | | [place], | | | | | | [place] [address] | | | | | | [phone] | | | | | | | | +--------+ + + + + | 05/21/ | Implant | Cardiology | Daljit Singletary, | Remote Device | | 2019 | Monitor | | [facility] | Interrogation | | | | | [address] [place], | (Primary Dx); | | | | | [place] [address] | Pacemaker; | | | | | [phone] | Sinoatrial node | | | | | | dysfunction (HCC) | | | | | | with symptomatic | | | | | | bradycardia | +--------+ + + + + documented as of this encounter Visit Diagnoses Not on filedocumented in this encounter"
--- OUTSIDE RECORDS SUMMARY | ~2020-04-15 | XMS | Encounter Summary ---
Demographics + + + | Address | [address] | | | [place] [address] | + + + | Home Phone [...] Team Providers + +------+ + | Care Streets And Buildings Decorator Name | Role | Phone | + +------+ + PCP | Unavailable | + +------+ + Encounter Details +--------+ + + + + | Date | Type | Department | Care Team | Description | +--------+ + + + + | 05/24/ | Hospital | [facility] | Chi Fang | Unspecified Chest | | 2008 - | Encounter | MEDICAL CENTER | MD Kelsey [address] | Pain | | | | CLINICAL DECISION | [place] | | | 05/25/ | | [address] | [address] | | | 2008 | | [place], [place] | [phone] | | | | | [address] | | | | | | [phone] | | | +--------+ + + + [...] | | | | | | [place] [address] | | | | | | [phone] | | | | | | | [...] | | | | | | [place] [address] | | | | | | [phone] | | | | | | | | +--------+ + + + + | 05/21/ | Implant | Cardiology | Daljit Singletary, | Remote Device | 2019 | Monitor | | MD [address] [place] | Interrogation | | | | | [place], | (Primary Dx); | | | | | [place] [address] | Pacemaker; | | | | | [phone] | Sinoatrial node | | | | [...] Performed At | + + + | [id number] | | | Page 1 RADIOLOGY | | | [facility] [address]/ | | | O[facility] | | | CENTER NAME: [place] [address] | | | | | | | | | DATE OF : 1960 ORDER NUMBER: | | | [id number] EXAM DATE/TIME: 05/25/2009 08:00 A ORDERING PHYSICIAN: [...] | | administration of 14.9 mCi of gcorlttdys-88m-nxkjvno Myoview. Stress | | | images postinjection [...] | | | images. Prone images demonstrate scientology of the inferior wall | | | [...] | | A P | | | TSG/earlene/[id number]/ cc: MD FEMI FOSS, | | | MD AMY SULLIVAN, DO | | + + + + + | Procedure Note | + + | Kalpesh Brown - 07/17/2019 2:13 AM PDT | | [id number] Page 1 | | RADIOLOGY CDU 77165/ | | OPO | | [facility] NAME: [address] | | [place] [address] | | | | DATE OF : 1960 | | | | ORDER NUMBER: [id number] | | EXAM DATE/TIME: 05/25/2009 08:00 A [...] administration of 14.9 mCi | | of oblqaziwre-80s-owdowbe Myoview. Stress images postinjection of 47.7 | [...] | | | | Prone images demonstrate scientology of the inferior wall nicely. | | [...] | A | | P | | TSG/dc/[id number]/ | | cc: ANGELA MARADIAGA MD | | FEMI MARIE MD | | CHI FANG MD | | AMY BANEGAS DO | + + ECHO Complete (05/25/2009 7:50 AM PDT) + + | Specimen | + + | | + + + + + | Narrative | Performed At | + + + | [id number] | | | Page 1 ECHO [facility] NAME: | | | [place] [address] MEDICAL RECORD #: | | | [id number] | | | DATE OF : 1960 ORDER | | | NUMBER: [id number] EXAM DATE/TIME: 05/25/2009 07:34 PERFORMING | | [...] Excursion: | | | 1.89 cm E-F [place]: 0.08 m/s HR: 43.51 BPM AV maxP.11 [...] | | | 0.33 m/s TV Dec [place]: 1.73 m/s2 TV Dec Time: 344.24 ms TV | | | E Bravo: 0.59 m/s TV E/A Ratio: 1.80 TV maxP.40 mmHg TV | | | meanP.44 mmHg TV Vmax: 0.59 m/s TV Vmean: 0.30 m/s TV | | | VTI: 22.88 cm Stretcher Helper: ANTHONY Authenticated by: Edwardo Tee | | | Carlos WINKLER Report Date/Time: 05-25-2009 10:19:52 | | + + + + + | Procedure Note | + + | Kalpesh Brown - 07/17/2019 2:13 AM PDT [id number] | | Page [address] [place] [address] NAME: [place], [place] | | [address] : ACCOUNT #: | | [id number]: DATE OF : 1960ORDER NUMBER: | | [id number] DATE/TIME: 05/25/2009 07:34PERFORMING PHYSICIAN: Edwardo Gonzalez | | MDORDER DETAIL: [id number] DESCRIPTION: ECHO CARDIAC ADULT WITH DOPPLER COLOR [...] mlLAESV Index (A-L): 26.03 ml/m2LAAs A2C: 14.93 [id number] A-L | | A2C: 44.50 mlLALs A2C: 4.25 cmLAAs A4C: 18.42 wo1PFKMV A-L A4C: 55.79 mlLALs | | A4C: 5.16 cmAo Diam: 3.91 cmAV Cusp: 2.23 cmLA Diam: 3.79 cmLA/Ao: 0.96%FS: | | 43.37 %EDV(Teich): 146.19 mlEF(Teich): 73.99 %ESV(Teich): 38.01 mlIVSd: 1.57 | | cmIVSs: 1.79 cmLVIDd: 5.48 cmLVIDs: 3.10 cmLVPWd: 1.32 cmLVPWs: 1.79 | | cmSV(Teich): 108.18 mlD-E Excursion: 1.89 cmE-F [place]: 0.08 m/sHR: 43.51 BPMAV | | maxP.11 mmHgAV meanP.33 mmHgAV Vmax: 1.74 m/Zabrina Vmean: 1.06 m/Zabrina VTI: | | 35.51 cmAVA Vmax: 2.77 cm2AVA (VTI): 2.54 fq1MKQC Dopp: 3.00 l/bbwi9KTCM Dopp: | | 6.33 l/minHR: 70.25 BPMLVOT maxP.78 mmHgLVOT meanP.02 mmHgLVSI Dopp: | | 42.76 ml/m2LVSV Dopp: 90.23 mlLVOT Vmax: 1.30 m/sLVOT Vmean: 0.80 m/sLVOT VTI: | | 24.35 cmMV A Bravo: 0.70 m/sMV DecT: 242.46 msMV E Bravo: 0.91 m/sMV E/A Ratio: | | 1.31MV maxP.40 mmHgMV meanP.82 mmHgMV Vmax: 0.92 m/sMV Vmean: 0.37 m/sMV | | VTI: 26.47 cmMVA (VTI): 3.40 yq6Fzylbq e': 0.08 m/sSeptal E/e': 11.24HR: | | 60.55 BPMPV maxP.04 mmHgPV meanP.39 mmHgPV Vmax: 0.87 m/sPV Vmean: 0.55 | | m/sPV VTI: 19.09 cmRAP: 5 mmHgRVSP: 21.72 mmHgTR maxP.72 mmHgTR Vmax: | | 2.04 m/sTV A Bravo: 0.33 m/sTV Dec [place]: 1.73 m/s2TV Dec Time: 344.24 msTV E Bravo: | | 0.59 m/sTV E/A Ratio: 1.80TV maxP.40 mmHgTV meanP.44 mmHgTV Vmax: 0.59 | | m/sTV Vmean: 0.30 m/sTV VTI: 22.88 cm Stretcher Helper: EMERYuthenticated by: Edwardo Tee | | Carlos Vargas Date/Time: 05-25-2009 10:19:52 | | | |IVC: [...] | |D-E Excursion: 1.89 cm | |E-F [place]: 0.08 m/s | |HR: 43.51 BPM | [...] A Bravo: 0.33 m/s | |TV Dec [place]: 1.73 m/s2 | |TV Dec Time: 344.24 ms | |TV E Bravo: 0.59 m/s | |TV E/A Ratio: 1.80 | |TV maxP.40 mmHg | |TV meanP.44 mmHg | |TV Vmax: 0.59 m/s | |TV Vmean: 0.30 m/s | |TV VTI: 22.88 cm | | | |Stretcher Helper: KVW | |Authenticated by: Edwardo Gonzalez MD | |Report Date/Time: 05-25-2009 10:19:52 | + + CT Head wo Contrast (05/24/2009 12:58 PM PDT) + + | Specimen | + + | | + + + + + | Narrative | Performed At | + + + | [id number] | | | Page 1 RADIOLOGY | | | [facility] [address]/ | | | OPO [facility] | | | CENTER NAME: [place] [address] | | | | | | | | | DATE OF : 1960 ORDER NUMBER: | | | [id number] EXAM DATE/TIME: 05/24/2009 12:47 P ORDERING PHYSICIAN: [...] | | asymmetrically dense vessel about the [place]. No | | | hydrocephalus. [...] 08:45 P P P | | | TSG/tp/[id number]/ cc: MD ANGELA AVENDAÑO MD | | | MD AMY HAM DO | | + + + + + | Procedure Note | + + | Kalpesh Brown Conversion - 07/17/2019 2:13 AM PDT | | [id number] Page 1 | | RADIOLOGY CDU 17540/ | | OPO | | [facility] NAME: [address] | | [place] [address] | | | | DATE OF : 1960 | | | | ORDER NUMBER: [id number] | | EXAM DATE/TIME: 05/24/2009 12:47 P [...] is no asymmetrically dense vessel about [place]. No | | hydrocephalus. Some [...] | P | | P | | [facility]/tp/[id number]/ | | cc: VINAY HILL MD | | ANGELA MARADIAGA MD | | FEMI MARIE MD | | AMY BANEGAS DO | + + XR Chest 2 Vws (05/24/2009 11:31 AM PDT) + + | Specimen | + + | | + + + + + | Narrative | Performed At | + + + | [id number] | | | Page 1 RADIOLOGY | | | CDU 68987/ | | | [facility] | | | CENTER NAME: [place] [address] | | | | | | | | | DATE OF : 1960 ORDER NUMBER: | | | [id number] EXAM DATE/TIME: 05/24/2009 11:19 A ORDERING PHYSICIAN: | | | IVNAY HILL ORDER DETAIL: 7000 / / HDI [...] DT: | | | 05/24/2009 05:38 P [facility]//[id number]/ cc: VINAY HILL MD | | | MD FEMI FOSS MD AMY | | | P BASSAM, DO | | + + + + + | Procedure Note | + + | Kalpesh Brown - 07/17/2019 2:13 AM PDT | | [id number] Page 1 | | RADIOLOGY CDU 93465/ | | OPO | | [facility] NAME: [address] | | [place] [address] | | | | DATE OF : 1960 | | | | ORDER NUMBER: [id number] | | EXAM DATE/TIME: 05/24/2009 11:19 A [...] | P | | P | | [facility]//[id number]/ | | cc: VINAY HILL MD | | ANGELA MARADIAGA MD | | FEMI MARIE MD | | AMY BANEGAS DO | + + documented in this encounter Visit Diagnoses + + | Diagnosis | + + | Chest pain, unspecified | + + documented in this encounter"
--- OUTSIDE RECORDS SUMMARY | ~2020-04-15 | XMS | Encounter Summary ---
Demographics + + + | Address | [address] | | | [place] [address] | + + + | Home Phone [...] Providers + +------+ + | Care Shop Director Name | Role | Phone | [...] + | 01/24/ | Emergency | [facility] | Michael Montoya MD | Chest pain, | | 2017 | | [facility] CTR EM[facility] | [address] | unspecified type | | | | CENTER [address] | [place], [place] | (Primary Dx) | | | | [place], [place] | [address] | | | | | [address] | | | | | | [phone] | | | +--------+ + + + [...] + + +---------+ + + | [place]-3 Fatty | CAPS, one capsule by | [...] | | | | | | [place], | | | | | | [place] [address] | | | | | | [phone] | | | | | | | | +--------+ + + + + | 05/01/ | Procedure | Cardiology | | | | 2019 | visit | | | | +--------+ + + + + | 05/01/ | Office | Cardiology | Silvia, | | | 2019 | Visit | | [address] | | | | | | [place], | | | | | | [place] [address] | | | | | | [phone] | | | | | | | | +--------+ + + + + | 05/21/ | Implant | Cardiology | Daljit Singletary, | Remote Device | | 2019 | Monitor | | [address] [facility] [place] | Interrogation | | | | | [place], | (Primary Dx); | | | | | [place] [address] | Pacemaker; | | | | | [phone] | Sinoatrial node | | | | [...] mL/min/1.73m2 | [facility] | | | GAMBIAN | RATE,ESTIMATED | | MEDICAL | | | | mL/min/1.13e7Lmdt than | | CENTER - | | [...] Total | appended report. These | | [facility] | | | | results have been [...] | [address] | [place], [place] | [phone] | | [facility] | | [address] | | | - LABORATORY | | [...] | | | | ANGELA MARADIAGA MD ([id number]) | | | | | | on [...] | | | | | | [employer] | | | | | [...] [address] | [place] | [phone] | | [facility] | | [address] | | | - LABORATORY | | [...] + | [facility] | [address] | [place] | [phone] | | [facility] | | [address] | | | - LABORATORY | | [...]
--- OUTSIDE RECORDS SUMMARY | ~2020-04-15 | XMS | Encounter Summary ---
Demographics + + + | Address | [address] | | | [place] [address] | + + + | Home Phone [...] Providers + +------+ + | Care Account General Manager Name | Role | Phone | + +------+ + | Michael Amanda DO | PCP | | + +------+ + Encounter Details +--------+ + + + + | Date | Type | Department | Care Team | Description | +--------+ + + + + | 01/31/ | Hospital [facility] | Adrian Gutierrez MD | | | 2012 | Encounter | [facility] | [address] | | | | | EMERGENCY CENTER | [place], [place] | | | | | [address] | [address] | | | | | [place] | [phone] | | | | | [address] | | | | | | [phone] | | | +--------+ + + + [...] + + + +---------+ + + | [place]-3 Fatty | CAPS, one capsule by | [...] | | | | | | [place] [address] | | | | | | [phone] | | | | | | | | +--------+ + + + + | 05/01/ | Procedure | Cardiology | | | | 2019 | visit | | | | +--------+ + + + + | 05/01/ | Office | Cardiology | Silvia, | | | 2019 | Visit | | [address] | | | | | | [place], | | | | | | [place] [address] | | | | | | [phone] | | | | | | | | +--------+ + + + + | 05/21/ | Implant | Cardiology | Daljit Singletary, | Remote Device | 2019 | Monitor | | MD [address] [place] | Interrogation | | | | | [place], | (Primary Dx); | | | | | [place] [address] | Pacemaker; | | | | | [phone] | Sinoatrial node | | | | [...] + + + | Exam Performed Location: [facility] TWO-VIEW | MISCELANIOUS | | CHEST CLINICAL [...] | an acute cardiopulmonary process. S: SQ ([id number]) Signed by: | | | JAYNE SPEAR MD | | + + + + + | Procedure Note | + + | Kevin, Rad Conversion - 09/13/2013 10:25 PM PDT Exam Performed Location: [facility] | | [facility] Heart[facility] CHESTCLINICAL INFORMATION:Shortness of | | breath.COMPARISON:None.FINDINGS:There is a left subclavian dual lead cardiac pacer. The | | heart sizeand mediastinal contours are normal. The pulmonary vasculature isnormal. No | | focal airspace opacities, pleural effusions, orpneumothorax. Cervical fusion hardware | | is noted. No acute osseousfindings.IMPRESSION:No evidence of an acute cardiopulmonary | | process.S: SQ ([id number]) Signed by: JAYNE SPEAR MD | |COMPARISON: [...] | | | | | |S: SQ ([id number]) Signed by: JAYNE SPEAR MD | + + + +---------+ + + | Performing | Address | City/State/Zipcode | Phone Number | | Organization | | | | + +---------+ + + | MISCELLANEOUS LAB | | | [phone] | + +---------+ + + | MISCELANIOUS LAB | | | [phone] | + +---------+ + + Troponin I [...] + + | [facility] | [address] | [place] [address] | | | [facility] | [...] + + | [facility]ON[facility] | [address] | [place] [address] | | | [facility] | [...] + + | [facility] | [address] | [place] [address] | | | [facility] | [...] + + | [facility] | [address] | [place] [address] | | | [facility] | | | | | LABORATORY | | | | + + + + + | [facility] | | | | | [facility] | | | | [...] + + | Glucose | 154 (H)Comment: Samoan | 65 - 99 mg/dL | [facility] [...] + + | [facility] | [address] | [place] [address] | | | [facility] | | | | | LABORATORY | | | | + + + + + | [facility] | | | | | [facility] | | | | | LABORATORY | | | | + + + + + documented in this encounter Visit Diagnoses Not on filedocumented in this encounter"
--- OUTSIDE RECORDS SUMMARY | ~2020-04-15 | XMS | Encounter Summary ---
Demographics + + + | Address | [address] | | | [place] [address] | + + + | Home Phone [...] Team Providers + +------+ + | Care Nuclear Plant Operator Name | Role | Phone [...] | Visit | CARDIOLOGY [address] | FOURDRINIER OPERATOR [address] | Dx) | | | | [place], | [place], [place] | | | | | [place] [address] | [address] | | | | | [phone] | | | +--------+---------+ + + + [...] Sanchez Date: December 21, 2012 : 1960 Junior Systems Analyst: PARISA Velazquez Device Precinct Commanding Officer: Medtronic Sense (mV) Impedance (?) Capture (V) Capture (ms) A Lead 4-5.6 423 1.5 0.09 RV Lead >31.36 539 2.0 0.09 LV Lead Battery Impedance (?): 301 Battery Voltage (V): 2.8 CT Interval (ms): 140 AR Interval (ms): 210 VA Conduction: Mode Switch Events: N/A % of time: -ELECTRONIC SYSTEMS TECHNICIAN: 0.6 AP-ELECTRONIC SYSTEMS TECHNICIAN: 1.3 -VS: 23.9 AP-VS: 74.2 ELECTRONIC SYSTEMS TECHNICIAN: Magnetic Rate: 85 LINDA: 65 LEAH: [...] | | | | | | [place] [address] | | | | | | [phone] | | | | | | | | +--------+ + + + + | 05/01/ | Procedure | Cardiology | | | | 2019 | visit | | | | +--------+ + + + + | 05/01/ | Office | Cardiology | Silvia, | | | 2019 | Visit | | PARISA Vernon [address] | | | | | | [place], | | | | | | [place] [address] | | | | | | [phone] | | | | | | | | +--------+ + + + + | 05/21/ | Implant | Cardiology | Daljit Singletary, | Remote Device | 2019 | Monitor | | [address] | Interrogation | | | | | [place], | (Primary Dx); | | | | | [place] [address] | Pacemaker; | | | | | [phone] | Sinoatrial node | | | | [...]
--- OUTSIDE RECORDS SUMMARY | ~2020-04-15 | XMS | Encounter Summary ---
Demographics + + + | Address | [address] | | | [place] [address] | + + + | Home Phone [...] Providers + +------+ + | Care Director Biology Name | Role | Phone | + [...] + | 06/27/ | Telephone | [facility] | Michael Amanda, | ED Follow-up (s/p | | 2014 | | [facility] [place] | DO [address] | [facility]) | | | | [address] | [place] | | | | | [place] | [address] | | | | | [address] | | | | | | [phone] | | | +--------+ + + + [...] W | | | | | | [place], | | | | | | [place] [address] | | | | | | [phone] | | | | | | | | +--------+ + + + + | 05/01/ | Procedure | Cardiology | | | | 2019 | visit | | | | +--------+ + + + + | 05/01/ | Office | Cardiology | Silvia, | | | 2019 | Visit | | PARISA Vernon [address] | | | | | | [place], | | | | | | [place] [address] | | | | | | [phone] | | | | | | | | +--------+ + + + + | 05/21/ | Implant | Cardiology | Daljit Singletary, | Remote Device | | 2019 | Monitor | | [facility] | Interrogation | | | | | [place], | (Primary Dx); | | | | | [place] [address] | Pacemaker; | | | | | [phone] | Sinoatrial node | | | | | | dysfunction (HCC) | | | | | | with symptomatic | | | | | | bradycardia | +--------+ + + + + documented as of this encounter Visit Diagnoses Not on filedocumented in this encounter"
--- OUTSIDE RECORDS SUMMARY | ~2020-04-15 | XMS | Encounter Summary ---
Demographics + + + | Address | [address] | | | [place] [address] | + + + | Home Phone [...] Providers + +------+ + | Care Retail Support Specialist Name | Role | Phone [...] [place] | | | | | | [address] | | | | | | [phone] | | | +--------+ + + + [...] W | | | | | | [place], | | | | | | [place] [address] | | | | | | [phone] | | | | | | | | +--------+ + + + + | 05/01/ | Procedure | Cardiology | | | | 2019 | visit | | | | +--------+ + + + + | 05/01/ | Office | Cardiology | Silvia, | | | 2019 | Visit | | PARISA Vernon [address] | | | | | | [place], | | | | | | [place] [address] | | | | | | [phone] | | | | | | | | +--------+ + + + + | 05/21/ | Implant | Cardiology | Daljit Singletary, | Remote Device | | 2019 | Monitor | | [facility] | Interrogation | | | | | [place], | (Primary Dx); | | | | | [place] [address] | Pacemaker; | | | | | [phone] | Sinoatrial node | | | | | | dysfunction (HCC) | | | | | | with symptomatic | | | | | | bradycardia | +--------+ + + + + documented as of this encounter Visit Diagnoses Not on filedocumented in this encounter"
--- OUTSIDE RECORDS SUMMARY | ~2020-04-15 | XMS | Encounter Summary ---
Demographics + + + | Address | [address] | | | [place] [address] | + + + | Home Phone [...] Team Providers + +------+ + | Care Salt Lifter Name | Role | Phone | + [...] + + | 01/22/ | Refill | [facility] | Kirk French | Medication Refill | | 2019 | | [facility] | MD [address] | | | | | PR[address] | [address] | | | | | [address] | [place] [address] | | | | | [place], [place] | [phone] | | | | | [address] | | | | | | [phone] | | | +--------+--------+ + + + [...] | | | | | | [place] [address] | | | | | | [phone] | | | | | | | | +--------+ + + + + | 05/01/ | Procedure | Cardiology | | | | 2019 | visit | | | | +--------+ + + + + | 05/01/ | Office | Cardiology | Silvia, | | | 2019 | Visit | | PARISA Vernon [address] | | | | | | [place], | | | | | | [place] [address] | | | | | | [phone] | | | | | | | | +--------+ + + + + | 05/21/ | Implant | Cardiology | Daljit Singletary, | Remote Device | | 2019 | Monitor | | [address] [facility] | Interrogation | | | | | [place], | (Primary Dx); | | | | | [place] [address] | Pacemaker; | | | | | [phone] | Sinoatrial node | | | | | | dysfunction (HCC) | | | | | | with symptomatic | | | | | | bradycardia | +--------+ + + + + documented as of this encounter Visit Diagnoses Not on filedocumented in this encounter"
--- OUTSIDE RECORDS SUMMARY | ~2020-04-15 | XMS | Encounter Summary ---
Demographics + + + | Address | [address] | | | [place] [address] | + + + | Home Phone [...] Providers + +------+ + | Care Wool Sorter Name | Role | Phone | [...] CARDIOLOGY [address] | MD [address] | Dx); SINUS | | | | [place], | [place], | [place] | | | | [place] [address] | [place] [address] | | | | | [phone] | [phone] | | | | | | | [...] | | | | | | [place] [address] | | | | | | [phone] | | | | | | | | +--------+ + + + + | 05/01/ | Procedure | Cardiology | | | | 2019 | visit | | | | +--------+ + + + + | 05/01/ | Office | Cardiology | Silvia, | | | 2019 | Visit | | PARISA Vernon W | | | | | | [place], | | | | | | [place] [address] | | | | | | [phone] | | | | | | | | +--------+ + + + + | 05/21/ | Implant | Cardiology | Daljit Singletary, | Remote Device | | 2019 | Monitor | | [address] [place] | Interrogation | | | | | [place], | (Primary Dx); | | | | | [place] [address] | Pacemaker; | | | | | [phone] | Sinoatrial node | | | | [...]
--- OUTSIDE RECORDS SUMMARY | ~2020-04-15 | XMS | Encounter Summary ---
Demographics + + + | Address | [address] | | | [place] [address] | + + + | Home Phone [...] Team Providers + +------+ + | Care Pocket Grinder Operator Name | Role | Phone | + +------+ + | Kirk French MD | PCP | | + +------+ + Encounter Details +--------+ + + + + | Date | Type | Department | Care Team | Description | +--------+ + + + + | 07/21/ | Hospital | [facility] | Daljit Singletary, | Palpitations; | | 2018 | Encounter | MED CTR NUCLEAR | MD [address] [place] | Presence of | | | | MEDICINE [address] | [address], | permanent cardiac | | | | [place], | [place] [address] | pacemaker; | | | | [address] | [phone] | Sinoatrial node | | | | [phone] | | dysfunction (HCC) | +--------+ + [...] + + + +---------+ + + | Custer-3 Fatty | CAPS, one capsule by | | 0 | // | | | Acids (SALMON | mouth [...] | 100 | 3 | 10/13/20 | 10/09/201 | | SL tablet | the tongue [...] W | | | | | | [place], | | | | | | [place] [address] | | | | | | [phone] | | | | | | | | +--------+ + + + + | 05/01/ | Procedure | Cardiology | | | | 2019 | visit | | | | +--------+ + + + + | 05/01/ | Office | Cardiology | Silvia, | | | 2019 | Visit | | PARISA Vernon W | | | | | | [place], | | | | | | [place] [address] | | | | | | [phone] | | | | | | | | +--------+ + + + + | 05/21/ | Implant | Cardiology | SunshinecherelleDaljit, | Remote Device | | 2020 | Monitor | | [address] [facility] | Interrogation | | | | | [place], | (Primary Dx); | | | | | [place] [address] | Pacemaker; | | | | | [phone] | Sinoatrial node | | | | [...] 08/25/2018 13:12 Wireless even study from | [facility] | | 07/21 until 08/22/2018. Baseline [...]
--- OUTSIDE RECORDS SUMMARY | ~2020-04-15 | XMS | Encounter Summary ---
Demographics + + + | Address | [address] | | | [place] [address] | + + + | Home Phone [...] [address] | | | | | [place], | [place], | | | | | [place] [address] | [place] [address] | | | | | [phone] | [phone] | | | | | | | [...] | | | | | | [place] [address] | | | | | | [phone] | | | | | | | | +--------+ + + + + | 05/01/ | Procedure | Cardiology | | | | 2019 | visit | | | | +--------+ + + + + | 05/01/ | Office | Cardiology | Silvia, | | | 2019 | Visit | | PARISA Vernon [address] | | | | | | [place], | | | | | | [place] [address] | | | | | | [phone] | | | | | | | | +--------+ + + + + | 05/21/ | Implant | Cardiology | Daljit Singletary, | Remote Device | 2019 | Monitor | | [address] [place] | Interrogation | | | | | [place], | (Primary Dx); | | | | | [place] [address] | Pacemaker; | | | | | [phone] | Sinoatrial node | | | | [...] | [address] | [place] | | | [facility] | | [id number] [[email or web address]] | | | - LABORATORY | | [...] | + +---------+ + + External Lab: [facility]O (01/25/2014 11:43 AM PST) + +-------+ + [...] | | | LAB | | | [place], | | | | | | External [...] | [address] | [place] | | | [facility] | | [id number] [[email or web address]] | | | - LABORATORY | | [...]
--- OUTSIDE RECORDS SUMMARY | ~2020-04-15 | XMS | Encounter Summary ---
Demographics + + + | Address | [address] | | | [place] [address] | + + + | Home Phone [...] Providers + +------+ + | Care Storeroom Keeper Name | Role | Phone | [...] | | | | CENTER [address] | [place], [place] | | | | | [place], [place] | [address] | | | | | [address] | | | | | | [phone] | | | +--------+ + + + [...] new doc you can try over at [facility] documented in this encounter Medications at Time [...] + + + +---------+ + + | [place]-3 Fatty | CAPS, one capsule by | [...] W | | | | | | [place], | | | | | | [place] [address] | | | | | | [phone] | | | | | | | | +--------+ + + + + | 05/01/ | Procedure | Cardiology | | | | 2019 | visit | | | | +--------+ + + + + | 05/01/ | Office | Cardiology | Silvia, | | | 2019 | Visit | | [address]ISA [address] | | | | | | [place], | | | | | | [place] [address] | | | | | | [phone] | | | | | | | | +--------+ + + + + | 05/21/ | Implant | Cardiology | Daljit Singletary, | Remote Device | 2019 | Monitor | | MD [address] | Interrogation | | | | | [place], | (Primary Dx); | | | | | [place] [address] | Pacemaker; | | | | | [phone] | Sinoatrial node | | | | [...]
--- OUTSIDE RECORDS SUMMARY | ~2020-04-15 | XMS | Encounter Summary ---
Demographics + + + | Address | [address] | | | [place] [address] | + + + | Home Phone [...] Team Providers + +------+ + | Care Ball Machine Operator Name | Role | Phone | + +------+ + | Kirk French MD | PCP | | + +------+ + Encounter Details +--------+---------+ + + + | Date | Type | Department | Care Team | Description | +--------+---------+ + + + | 09/26/ | Office | [facility] | Kirk French | Weight loss (Primary | | 2018 | Visit | [facility] | MD Bre[address] | Dx); Bipolar | | | | PRIMARY [facility]ARE [address] | affective disorder, | | | | [address] | [place] [address] | remission status | | | | [place], [place] | [phone] | unspecified (HCC); | | | | [address] | | Mixed anxiety | | | | [phone] | | depressive disorder; | | | [...] Premature ventricular contraction [facility] health care 06/26/2013 LAST PSA:12/16/2010 RESULT:0.14 [...] CV LHC; Surgeon: Daljit Singletary MD; Location: [facility] CV LAB CARDIAC CATHERIZATION N/A 01/25/2019 Procedure: CV Cor Angio; Surgeon: Daljit Singletary MD; Location: [facility] CV LAB COLONOSCOPY N/A 12/24/2017 Procedure: COLONOSCOPY; Surgeon: Emmanuel Daniel MD; Location: [facility] MEDICAL PROCEDURE UNIT COLONOSCOPY N/A 01/05/2019 Procedure: COLONOSCOPY; Surgeon: Emmanuel Daniel MD; Location: [facility] MEDICAL PROCEDURE UNIT EGD 12/24/2017 [...] Procedure: EGD; Surgeon: Emmanuel Daniel MD; Location: [facility] MEDICAL PROCEDURE UNIT UPPER GASTROINTESTINAL ENDOSCOPY N/A 01/05/2019 Procedure: EGD; Surgeon: Emmanuel Daniel MD; Location: [facility] MEDICAL PROCEDURE UNIT URETEROSCOPY Left 04/13/2019 Procedure: Cystoscopy, Left ureteroscopy with laser lithotripsy, Left ureteral stent place ment; Surgeon: Matthew Uriarte MD; Location: [facility] MAIN OR VASECTOMY Social History [...] ONE TABLET UNDER THE TONGUE EVERY 5 [place] NUTES NEEDED FOR CHEST PAIN 250 tablet 0 [place]-3 Fatty Acids (SALMON OIL-1000 PO) CAPS, one capsule by mouth daily twice daily ondansetron (ZOFRAN ODT) 4 mg disintegrating tablet Take 4 mg by mouth every 8 hours as needed for Nausea. ONE TOUCH DELICA LANCETS [facility] [...] PLT 169 06/02/2019 No results found for: [id number] No results found for: FOLATE No results [...] Co multiple ER visits Going again to [facility] tomorrow Already followed by [facility] in [...] dollars a month. We will defer to [facility], perhaps to have some sort of a [...] | | | | | | [place] [address] | | | | | | [phone] | | | | | | | | +--------+ + + + + | 05/01/ | Procedure | Cardiology | | | 2019 | visit | | | | +--------+ + + + + | 05/01/ | Office | Cardiology | Silvia, | | | 2019 | Visit | | [address] | | | | | | [place], | | | | | | [place] [address] | | | | | | [phone] | | | | | | | | +--------+ + + + + | 05/21/ | Implant | Cardiology | Dlajit Singletary, | Remote Device | | 2019 | Monitor | | [address] | Interrogation | | | | | [place], | (Primary Dx); | | | | | [place] [address] | Pacemaker; | | | | | [phone] | Sinoatrial node | | | | [...]
--- OUTSIDE RECORDS SUMMARY | ~2020-04-15 | XMS | Encounter Summary ---
Demographics + + + | Address | [address] | | | [place] [address] | + + + | Home Phone [...] Team Providers + +------+ + | Care Wildland Fire Fighter Name | Role | Phone [...] | CARDIOLOGY [address] | [address] | Interrogation | | | | [place], | [place], | (Primary Dx); | | | | [place] [address] | [place] [address] | Presence of | | | | [phone] | [phone] | permanent cardiac | | | | [...] | | | | | | [place] [address] | | | | | | [phone] | | | | | | | | +--------+ + + + + | 05/01/ | Procedure | Cardiology | | | | 2019 | visit | | | | +--------+ + + + + | 05/01/ | Office | Cardiology | Silvia, | | | 2019 | Visit | | PARISA Vernon [address] | | | | | | [place], | | | | | | [place] [address] | | | | | | [phone] | | | | | | | | +--------+ + + + + | 05/21/ | Implant | Cardiology | Daljit Singletary, | Remote Device | | 2019 | Monitor | | [place] [address] | Interrogation | | | | | [place], | (Primary Dx); | | | | | [place] [address] | Pacemaker; | | | | | [phone] | Sinoatrial node | | | | [...] remote PDF scanned into | | | [facility] for remote interrogation results. Data collected [...] + | Performing | Address | City/[facility] | Phone Number | | [...]
--- OUTSIDE RECORDS SUMMARY | ~2020-04-15 | XMS | Encounter Summary ---
Demographics + + + | Address | [address] | | | [place] [address] | + + + | Home Phone [...] Team Providers + +------+ + | Care Phone Technician Name | Role | Phone | [...] + | 12/23/ | Telephone | [facility] | Daljit Singletary, | Other (question | | 2015 | | CARDIOLOGY [address] | [address] [place] | about diet | | | | [place], | [place], | medication) | | | | [place] [address] | [place] [address] | | | | | [phone] | | | | | | | [...] | | | | | | [place] [address] | | | | | | [phone] | | | | | | | | +--------+ + + + + | 05/01/ | Procedure | Cardiology | | | | 2019 | visit | | | | +--------+ + + + + | 05/01/ | Office | Cardiology | Silvia | | | 2019 | Visit | | Janeen, MISSION WORKER [address] | | | | | | [place], | | | | | | [place] [address] | | | | | | [phone] | | | | | | | | +--------+ + + + + | 05/21/ | Implant | Cardiology | Daljit Singletary, | Remote Device | | 2020 | Monitor | | MD [address] | Interrogation | | | | | [place], | (Primary Dx); | | | | | [place] [address] | Pacemaker; | | | | | [phone] | Sinoatrial node | | | | | | dysfunction ([facility]) | | | | | | with symptomatic | | | | | | bradycardia | +--------+ + + + + documented as of this encounter Visit Diagnoses Not on filedocumented in this encounter"
--- OUTSIDE RECORDS SUMMARY | ~2020-04-15 | XMS | Encounter Summary ---
Demographics + + + | Address | [address] | | | [place] [address] | + + + | Home Phone [...] Team Providers + +------+ + | Care License Distributor Name | Role | Phone | + +------+ + | Kirk French MD | PCP | | + +------+ + Encounter Details +--------+ + + + + | Date | Type | Department | Care Team | Description | +--------+ + + + + | 10/25/ | Hospital | [facility] | Kirk French | Chronic pain | | 2017 | Encounter | MED CTR ULTRASOUND | MD Brea Eva [address]ORA | disorder; Stomach | | | | [address] [place] | [address] | ache; Obesity, | | | | [place], [place] | [place] [address] | unspecified | | | | [address] | [phone] | classification, | | | | [phone] | | unspecified obesity | | | [...] + + + +---------+ + + | [place]-3 Fatty | CAPS, one capsule by [...] | | | | | | [place] [address] | | | | | | [phone] | | | | | | | | +--------+ + + + + | 05/01/ | Procedure | Cardiology | | | | 2019 | visit | | | | +--------+ + + + + | 05/01/ | Office | Cardiology | Silvia, | | | 2019 | Visit | | [address] | | | | | | [place], | | | | | | [place] [address] | | | | | | [phone] | | | | | | | | +--------+ + + + + | 05/21/ | Implant | Cardiology | Daljit Singletary, | Remote Device | | 2019 | Monitor | | MD [facility] | Interrogation | | | | | [place], | (Primary Dx); | | | | | [place] [address] | Pacemaker; | | | | | [phone] | Sinoatrial node | | | | [...]
--- OUTSIDE RECORDS SUMMARY | ~2020-04-15 | XMS | Encounter Summary ---
Demographics + + + | Address | [address] | | | [place] [address] | + + + | Home Phone [...] Providers + +------+ + | Care Network Operations Lead Name | Role | Phone | [...] | | | | CENTER [address] | [place] | (Primary Dx) | | 07/28/ | | [place] | [address] | | | 2017 | | [address] | | | | | | [phone] | | | +--------+ + + + [...] sent through Care Everywhere.Chest Pain, Non cardiac (Dutch)documented in this encounter Medications at Time of [...] + + + +---------+ + + | [place]-3 Fatty | CAPS, one capsule by | [...] | | | | | | [place] [address] | | | | | | [phone] | | | | | | | [...] | | | | | | [place] [address] | | | | | | [phone] | | | | | | | | +--------+ + + + + | 05/21/ | Implant | Cardiology | Daljit Singletary, | Remote Device | 2019 | Monitor | | [address] [place] | Interrogation | | | | | [place], | (Primary Dx); | | | | | [place] [address] | Pacemaker; | | | | | [phone] | Sinoatrial node | | | | [...] W?MRN: | | | | | | [id number] | | | [id number] | | | his | | | [...] | | | ent/60 | | | [id number] | | | -5586- | | | [...] | | | St. | | | [place] | | | y | | | [...] | | | ext. | | | [address] | | | or go | | [...] | | | M.D. | | | Infant Childcare Provider | | | al | | | [...] | | | | | | [employer] | | | | | [...] + | [facility] | [address] | [place] | [phone] | | [facility] | | [address] | | | - LABORATORY | | [...] mL/min/1.73m2 | [facility] | | | TRISTANIAN | RATE,ESTIMATED | | MEDICAL | | | | mL/min/1.08f0Epaf than | | CENTER - | | [...] + | [facility] | [address] | [place] | [phone] | | [facility] | | [address] | | | - LABORATORY | | [...] + | [facility] | [address] | [place] | [phone] | | [facility] | | [address] | | | - LABORATORY | | [...] | | | | HIREN WINKLER, ANGELA ([address]) | | | | | | on [...]
--- OUTSIDE RECORDS SUMMARY | ~2020-04-15 | XMS | Encounter Summary ---
Demographics + + + | Address | [address] | | | [place] [address] | + + + | Home Phone [...] Team Providers + +------+ + | Care Power Digger Operator Name | Role | Phone | [...] [address] | | | | | | [place], [place] | (Fax) | | | | | [address] | | | | | | [phone] | | | +--------+ + + + [...] | | | | | | [place] [address] | | | | | | [phone] | | | | | | | | +--------+ + + + + | 05/01/ | Procedure | Cardiology | | | | 2019 | visit | | | | +--------+ + + + + | 05/01/ | Office | Cardiology | Silvia, | | | 2019 | Visit | | PARISA Vernon [address] | | | | | | [place], | | | | | | [place] [address] | | | | | | [phone] | | | | | | | | +--------+ + + + + | 05/21/ | Implant | Cardiology | Daljit Singletary, | Remote Device | | 2019 | Monitor | | [address] [place] | Interrogation | | | | | [place], | (Primary Dx); | | | | | [place] [address] | Pacemaker; | | | | | [phone] | Sinoatrial node | | | | | | dysfunction (HCC) | | | | | | with symptomatic | | | | | | bradycardia | +--------+ + + + + documented as of this encounter Visit Diagnoses Not on filedocumented in this encounter"
--- OUTSIDE RECORDS SUMMARY | ~2020-04-15 | XMS | Encounter Summary ---
Demographics + + + | Address | [address] | | | [place] [address] | + + + | Home Phone [...] Providers + +------+ + | Care Cafeteria Attendant Name | Role | Phone | [...] [address] | | | | | | [place], [place] | (Fax) | | | | | [address] | | | | | | [phone] | | | +--------+ + + + [...] | | | | | | [place] [address] | | | | | | [phone] | | | | | | | | +--------+ + + + + | 05/01/ | Procedure | Cardiology | | | | 2019 | visit | | | | +--------+ + + + + | 05/01/ | Office | Cardiology | Silvia, | | | 2019 | Visit | | PARISA Vernon [address] | | | | | | [place], | | | | | | [place] [address] | | | | | | [phone] | | | | | | | | +--------+ + + + + | 05/21/ | Implant | Cardiology | Daljit Singletary, | Remote Device | | 2019 | Monitor | | [address] [place] | Interrogation | | | | | [place], | (Primary Dx); | | | | | [place] [address] | Pacemaker; | | | | | [phone] | Sinoatrial node | | | | | | dysfunction (HCC) | | | | | | with symptomatic | | | | | | bradycardia | +--------+ + + + + documented as of this encounter Visit Diagnoses Not on filedocumented in this encounter"
--- OUTSIDE RECORDS SUMMARY | ~2020-04-15 | XMS | Encounter Summary ---
Demographics + + + | Address | [address] | | | [place] [address] | + + + | Home Phone [...] Providers + +------+ + | Care Superintendent Quarry Name | Role | Phone | + [...] [address] | | | | | | [place], [place] | (Fax) | | | | | [address] | | | | | | [phone] | | | +--------+ + + + [...] | | | | | | [place] [address] | | | | | | [phone] | | | | | | | | +--------+ + + + + | 05/01/ | Procedure | Cardiology | | | | 2019 | visit | | | | +--------+ + + + + | 05/01/ | Office | Cardiology | Silvia, | | | 2019 | Visit | | PARISA Vernon [address] | | | | | | [place], | | | | | | [place] [address] | | | | | | [phone] | | | | | | | | +--------+ + + + + | 05/21/ | Implant | Cardiology | Daljit Singletary, | Remote Device | | 2019 | Monitor | | [address] [place] | Interrogation | | | | | [place], | (Primary Dx); | | | | | [place] [address] | Pacemaker; | | | | | [phone] | Sinoatrial node | | | | | | dysfunction (HCC) | | | | | | with symptomatic | | | | | | bradycardia | +--------+ + + + + documented as of this encounter Visit Diagnoses Not on filedocumented in this encounter"
--- OUTSIDE RECORDS SUMMARY | ~2020-04-15 | XMS | Encounter Summary ---
Demographics + + + | Address | [address] [place] [address] [address] | | | [place] [address] | + + + | Home Phone | | + + + | Preferred Language | Unknown | + + + | Marital Status | | + + + | Oriental Orthodox Affiliation | Unknown | + + [...] [place] | | | | | [id number] | | + + + + + Care Team Providers + +------+ + | Care Profiling Machine Setup Operator Name | Role | Phone | [...] | | | [address] | [place], [place] | | | | | Mailcode: Center | [phone] | | | | | [facility] | [phone] | | | | | [facility] | | | | | | [place], [place] | | | | | | [address] | | | | | | [phone] | | | +--------+ + + + [...]
--- OUTSIDE RECORDS SUMMARY | ~2020-04-15 | XMS | Encounter Summary ---
Demographics + + + | Address | [address] | | | [place] [address] | + + + | Home Phone [...] Team Providers + +------+ + | Care Materials Intern Name | Role | Phone | [...] [address] | | | | | [place], | [place], | | | | | [place] [address] | [place] [address] | | | | | [phone] | [phone] | | | | | | | [...] W | | | | | | [place], | | | | | | [place] [address] | | | | | | [phone] | | | | | | | | +--------+ + + + + | 05/01/ | Procedure | Cardiology | | | | 2019 | visit | | | | +--------+ + + + + | 05/01/ | Office | Cardiology | Sil[place], | | | 2019 | Visit | | PARISA Vernon W | | | | | | [place], | | | | | | [place] [address] | | | | | | [phone] | | | | | | | | +--------+ + + + + | 05/21/ | Implant | Cardiology | Daljit Singletary, | Remote Device | 2019 | Monitor | | MD Sim [place] | Interrogation | | | | | [place], | (Primary Dx); | | | | | [place] [address] | Pacemaker; | | | | | [phone] | Sinoatrial node | | | | [...]
--- OUTSIDE RECORDS SUMMARY | ~2020-04-15 | XMS | Encounter Summary ---
Demographics + + + | Address | [address] | | | [place] [address] | + + + | Home Phone [...] Team Providers + +------+ + | Care Can Cutter Name | Role | Phone | [...] | 02/15/ | Office | [facility] [place] | [place], | Symptomatic PVCs | | 2012 | Visit | CARDIOLOGY [address] | PAIRSA Vernon [address] | (Primary Dx); | | | | [place], | [place], | Bradycardia; HTN | | | | [place] [address] | [place] [address] | (hypertension) | | | | [phone] | [phone] | | | | | | | [...] at which time patient was going to [place] for improvement specialist co nsult and PVC ablation. Since [...] "PVC's episodes". Of note, according to Dr. Gambnio's discharg e summary, he has suggested the [...] tablet Take 1,000 mg by mouth Daily. [place]-3 Fatty Acids (SALMON OIL-1000 PO) CAPS, one [...] arrhythmia performed by Dr. Gambino at [facility] on 01/30/2013. Patient had spontaneous [...] to go back in 3 days to [place] for an attempt of ablation under general [...] He is in a class II of [employer] functional class. There is no [...] been encouraged to keep his appointment with improvement specialist this coming to attempt ablation therapy. 4. Follow up appointment in 4-6 weeks. I, PARISA Russell, saw this patient under the direct supervision of Daljit Singletary MD Portions of this report were transcribed using voice recognition software. Every effort wa s made to ensure accuracy; however, inadvertent computerized rip tailer errors may be pre sent. documented in this encounter Plan of Treatment +--------+ + + + + | Date | Type | Specialty | Care Team | Description | +--------+ + + + + | 05/01/ | Appointment | Radiology | Silvia, | | | 2019 | | | PARISA Vernon [address] | | | | | | [place], | | | | | | [place] [address] | | | | | | [phone] | | | | | | | | +--------+ + + + + | 05/01/ | Procedure | Cardiology | | | | 2019 | visit | | | | +--------+ + + + + | 05/01/ | Office | Cardiology | [place], | | | 2019 | Visit | | PARISA [address] W | | | | | | [place], | | | | | | [place] [address] | | | | | | [phone] | | | | | | | | +--------+ + + + + | 05/21/ | Implant | Cardiology | Daljit Singletary, | Remote Device | 2019 | Monitor | | [address] [place] | Interrogation | | | | | [place], | (Primary Dx); | | | | | [place] [address] | Pacemaker; | | | | | [phone] | Sinoatrial node | | | | [...]
--- OUTSIDE RECORDS SUMMARY | ~2020-04-15 | XMS | Encounter Summary ---
Demographics + + + | Address | [address] | | | [place] [address] | + + + | Home Phone [...] Team Providers + +------+ + | Care Yard Clerk Name | Role | Phone | [...] | [address] [place] | [place] [address] | | | | | [address] | [phone] | | | | | [phone] | | | +--------+ + + + [...] | | | | | | [place], | | | | | | [place] [address] | | | | | | [phone] | | | | | | | | +--------+ + + + + | 05/01/ | Procedure | Cardiology | | | | 2019 | visit | | | | +--------+ + + + + | 05/01/ | Office | Cardiology | [place], | | | 2019 | Visit | | PARISA Vernon W | | | | | | [place], | | | | | | [place] [address] | | | | | | [phone] | | | | | | | | +--------+ + + + + | 05/21/ | Implant | Cardiology | Daljit Singletary, | Remote Device | 2019 | Monitor | | MD Sim [place] | Interrogation | | | | | [place], | (Primary Dx); | | | | | [place] [address] | Pacemaker; | | | | | [phone] | Sinoatrial node | | | | | | dysfunction (HCC) | | | | | | with symptomatic | | | | | | bradycardia | +--------+ + + + + documented as of this encounter Visit Diagnoses Not on filedocumented in this encounter"
--- OUTSIDE RECORDS SUMMARY | ~2020-04-15 | XMS | Encounter Summary ---
Demographics + + + | Address | [address] | | | [place] [address] | + + + | Home Phone [...] Team Providers + +------+ + | Care Forester Silviculture Name | Role | Phone | + [...] + + | 03/22/ | Refill | [facility] | Kirk French | Medication Refill | | 2019 | | [facility] | MD Bre[address] | | | | | [facility] [address] | [address] | | | | | [address] | [place] [address] | | | | | [place], [place] | [phone] | | | | | [address] | | | | | | [phone] | | | +--------+--------+ + + + [...] | | | | | | [place] [address] | | | | | | [phone] | | | | | | | | +--------+ + + + + | 05/01/ | Procedure | Cardiology | | | | 2019 | visit | | | | +--------+ + + + + | 05/01/ | Office | Cardiology | [place], | | | 2019 | Visit | | PARISA Vernon [address] | | | | | | [place], | | | | | | [place] [address] | | | | | | [phone] | | | | | | | | +--------+ + + + + | 05/21/ | Implant | Cardiology | Daljit Singletary, | Remote Device | | 2019 | Monitor | | [facility] | Interrogation | | | | | [place], | (Primary Dx); | | | | | [place] [address] | Pacemaker; | | | | | [phone] | Sinoatrial node | | | | | | dysfunction (HCC) | | | | | | with symptomatic | | | | | | bradycardia | +--------+ + + + + documented as of this encounter Visit Diagnoses Not on filedocumented in this encounter"
--- OUTSIDE RECORDS SUMMARY | ~2020-04-15 | XMS | Encounter Summary ---
Demographics + + + | Address | [address] | | | [place] [address] | + + + | Home Phone [...] Providers + +------+ + | Care Marketing Production Specialist Name | Role | Phone [...] | disease involving | | | | [place], | [place], | [place] coronary | | | | [place] [address] | [place] [address] | artery without | | | | [phone] | [phone] | angina pectoris | | | | [...] W | | | | | | [place], | | | | | | [place] [address] | | | | | | [phone] | | | | | | | | +--------+ + + + + | 05/01/ | Procedure | Cardiology | | | | 2019 | visit | | | | +--------+ + + + + | 05/01/ | Office | Cardiology | [place], | | | 2019 | Visit | | PARISA [place] W | | | | | | [place], | | | | | | [place] [address] | | | | | | [phone] | | | | | | | | +--------+ + + + + | 05/21/ | Implant | Cardiology | Daljit Singletary, | Remote Device | | 2020 | Monitor | | MD [address] [facility] | Interrogation | | | | | [place], | (Primary Dx); | | | | | [place] [address] | Pacemaker; | | | | | [phone] | Sinoatrial node | | | | [...] MD | | | | | | ([id number]) on 08/29/2015 | | | | | [...] + + | Coronary artery disease involving [place] coronary artery without angina pectoris - | | Primary | + + documented in this encounter"
--- OUTSIDE RECORDS SUMMARY | ~2020-04-15 | XMS | Encounter Summary ---
Demographics + + + | Address | [address] | | | [place] [address] | + + + | Home Phone [...] Team Providers + +------+ + | Care Electromedical Service Engineer Name | Role | Phone | [...] | Palpitations | [address] | | | | | Procedures | [address] | [address] [place] | | | | | ECHO | [place], | [place], [place] | | | | | Complete | [place] [address] | [address] | | | | | | Phone: | Phone: | | | | | | [phone] | [phone] | | | | | | Fax: | Fax: | | | | | | [phone] | [phone] | +--------+--------+ + + + + Encounter Details +--------+ + + + + | Date | Type | Department | Care Team | Description | +--------+ + + + + | 12/30/ | Hospital | [facility] | TimmyshaistateshaShaistatimmy, | Palpitations | | 2012 - | Encounter | MED CTR XRAY [address] | MD [address] [place] | | | | | [place] | [place], | | | 01/01/ | | [place] [address] | [place] [address] | | | 2012 | | [phone] | [phone] | | | | | | | [...] + + + +---------+ + + | [place]-3 Fatty | CAPS, one capsule by | [...] W | | | | | | [place], | | | | | | [place] [address] | | | | | | [phone] | | | | | | | | +--------+ + + + + | 05/01/ | Procedure | Cardiology | | | | 2019 | visit | | | | +--------+ + + + + | 05/01/ | Office | Cardiology | [place]via | | | 2019 | Visit | | PARISA [place] W | | | | | | [place], | | | | | | [place] [address] | | | | | | [phone] | | | | | | | | +--------+ + + + + | 05/21/ | Implant | Cardiology | Daljit Singletary, | Remote Device | 2019 | Monitor | | MD [address] [place] | Interrogation | | | | | [address], | (Primary Dx); | | | | | [place] [address] | Pacemaker; | | | | | [phone] | Sinoatrial node | | | | [...] Performed At | + + + | [facility] Diagnostic Imaging | [place] | | Department [address] [facility] | [facility] | | [ rep [address]] [ rep [facility] | | st zip] Signed | - IMAGING | | | | | Patient Name: MOE GAY | | | Physician: MIGUELINA : 1960 Age: 52 Sex: M Unit | | | #: [id number] Exam Date: 12/30/12 Location: | | | [facility] Report #: [id number] Page: | | | %(RAD)RES..mtdd.print.filter("pg") of %(RAD) | | | RES..mtdd.print.filter("tpg") | | | | | | Accession Number: [id number] | | | E C H O C A R D I O G R A P H Y R E P O R T | | | HEIGHT: 76" WEIGHT: 270# | | | TIMEKEEPING SUPERVISOR: JAMEEL REFERRING DR: TIMMY DRAKE DR: | [...] | | | Transcribed Date/Time: 12/30/2012 16:34 Sales Merchandiser: | | | <<Signature on File>> | | | Daljit | | | MD [facility] FASE01/02/13 0955 <Electronically signed by | | | Daljit Singletary MD, FAC, FACP, FASNanette, FASRAUL> Daljit | | | MD [facility] ADELINE 12/30/12 1608 Sales Merchandiser: Jessica | | | Loiqaxbegtpru45/08/13 1634 Daljit Singletary MD [facility] | | | FASNanette | | + + + + + + + + | Performing | Address | City/State/Zipcode | Phone Number | | Organization | | | | + + + + + | [facility] | [address] | [place] | [phone] | | [facility] | | [address] | | | - IMAGING | | | | + + + + + documented in this encounter Visit Diagnoses + + | Diagnosis | + + | Palpitations | + + documented in this encounter
--- OUTSIDE RECORDS SUMMARY | ~2020-04-15 | XMS | Encounter Summary ---
Demographics + + + | Address | [address] | | | [place] [address] | + + + | Home Phone [...] Team Providers + +------+ + | Care Deburr Operator Name | Role | Phone | [...] | unspecified | MD Jacek | [address] | | | | | type | [address] | [place], | | | | | Unintentiona | [place] | [place] [address] | | | | | l weight | [place], [place] | Phone: | | | | | loss | [address] | [phone] | | | | | Procedures | Phone: | Fax: | | | | | [facility] | [phone] | [phone] | | | | | INTRALUMINAL | Fax: | | | | | | | [phone] | | | | | | ESOPHAGUS-IL [...] (Primary Dx); | | | | [address] [place], [place] | [place] [address] | Unintentional weight | | | | [address] | [phone] | loss | | | | [phone] | | | +--------+ + + + [...] | | 2019 | | | [place] Venron [address] | | | | | | [place], | | | | | | [place] [address] | | | | | | [phone] | | | | | | | | +--------+ + + + + | 05/01/ | Procedure | Cardiology | | | 2019 | visit | | | | +--------+ + + + + | 05/01/ | Office | Cardiology | [place], | | | 2019 | Visit | | PARISA [place] [address] | | | | | | [place], | | | | | | [place] [address] | | | | | | [phone] | | | | | | | | +--------+ + + + + | 05/21/ | Implant | Cardiology | Daljit Singletary, | Remote Device | | 2019 | Monitor | | [address] [place] [place] | Interrogation | | | | | [place], | (Primary Dx); | | | | | [place] [address] | Pacemaker; | | | | | [phone] | Sinoatrial node | | | | [...]
--- OUTSIDE RECORDS SUMMARY | ~2020-04-15 | XMS | Encounter Summary ---
Demographics + + + | Address | [address] | | | [place] [address] | + + + | Home Phone [...] Providers + +------+ + | Care Packaging Assembler Name | Role | Phone | [...] | | CARDIOLOGY [address] | Janeen CRIME INVESTIGATOR SPECIAL AGENT [address] | | | | | [place], | [place], | | | | | [place] [address] | [place] [address] | | | | | [phone] | [phone] | | | | | | | [...] | | | | | | [place], | | | | | | [place] [address] | | | | | | [phone] | | | | | | | | +--------+ + + + + | 05/01/ | Procedure | Cardiology | | | | 2019 | visit | | | | +--------+ + + + + | 05/01/ | Office | Cardiology | Silvia, | | | 2019 | Visit | | PARISA [address] | | | | | | [place], | | | | | | [place] [address] | | | | | | [phone] | | | | | | | | +--------+ + + + + | 05/21/ | Implant | Cardiology | Daljit Singletary, | Remote Device | 2019 | Monitor | | MD Sim [place] | Interrogation | | | | | [place], | (Primary Dx); | | | | | [place] [address] | Pacemaker; | | | | | [phone] | Sinoatrial node | | | | | | dysfunction (HCC) | | | | | | with symptomatic | | | | | | bradycardia | +--------+ + + + + documented as of this encounter Visit Diagnoses Not on filedocumented in this encounter"
--- OUTSIDE RECORDS SUMMARY | ~2020-04-15 | XMS | Encounter Summary ---
Demographics + + + | Address | [address] | | | [place] [address] | + + + | Home Phone [...] Providers + +------+ + | Care Aerial Survey Technician Name | Role | Phone | [...] [place] | | | | | | [address] | [address] Phone: | | | | | | Phone: | [phone] | | | | | | [phone] | Fax: | | | | | | Fax: | [phone] | | | | | | [phone] | | +--------+ + + + + [...] | diurnal enuresis | | | | [place], [place] | [place], [place] | (Primary Dx); BPH | | | | [address] | [address] | with | | | | [phone] | | obstruction/lower | | | | [...] Haleigh rodarte states that the surgeon in [place] who performed his neck surgery is no longer practicing a nd was apparently disciplined and had his license revoked by the [facility]. He has us ed marijuana for his chronic pain. He reports neuropathy in both feet. He states he has numbness in his hands every morning. He denies saddle paresthesias. He tells me that in the remote past, he had an episode of urinary retention when he is usin g a lot of narcotics, which was evaluated with urodynamics by Dr. Maraima Nunes. He does not know the results [...] APNEA CONDS CLASSIFIED ELSEWHERE (12/15/2010); Ulcerative colitis ([facility]); Ches t pain; SINUS BRADYCARDIA; HEPATITIS B; PUD; FATTY LIVER DISEASE; SUBSTANCE ABUSE, MULTIPLE; Preventative health care (06/26/2013); Bladder troubles; Tuberculosis; Anginal pain ([facility]); St roke (FORMERLY [facility]); Prostate troubles; and Neurological disorder. Past Surgical [...] needed for Chest pain. 25 tablet 12 [place]-3 Fatty Acids (SALMON OIL-1000 PO) CAPS, one [...] Date/Time: 04/22/2012 16:56 Transcribed Date/Time: 04/22/2012 17:32 Weigh Box Tender: <Electronically Signed by Jama Solis MD> 04/23/12 [...] Date/Time: 04/23/2012 10:54 Transcribed Date/Time: 04/23/2012 11:06 Weigh Box Tender: <Electronically Signed by Jama Solis MD> 04/24/12 4749 IMPRESSION: 1. Nocturnal and diurnal enuresis. I [...] bladder, still believe that the recommendations from [facility] neurosurgeon, Dr. Demarco, on 03/13/2014 [...] have not thoroughly proofread this note, and snow technician erro rs may occur. CC: Kirk French [...] | | | | | | [place] [address] | | | | | | [phone] | | | | | | | | +--------+ + + + + | 05/01/ | Procedure | Cardiology | | | | 2019 | visit | | | | +--------+ + + + + | 05/01/ | Office | Cardiology | Silvia, | | | 2019 | Visit | | [address] | | | | | | [place], | | | | | | [place] [address] | | | | | | [phone] | | | | | | | | +--------+ + + + + | 05/21/ | Implant | Cardiology | Daljit Singletary, | Remote Device | | 2019 | Monitor | | [address] [place] | Interrogation | | | | | [place], | (Primary Dx); | | | | | [place] [address] | Pacemaker; | | | | | [phone] | Sinoatrial node | | | | [...] 1.001 - 1.030 | | | | [place], | | | | | | UA, [...]
--- OUTSIDE RECORDS SUMMARY | ~2020-04-15 | XMS | Encounter Summary ---
Demographics + + + | Address | [address] | | | [place] [address] | + + + | Home Phone [...] Team Providers + +------+ + | Care Campaign Manager Name | Role | Phone | + +------+ + PCP | Unavailable | + +------+ + Encounter Details +--------+ + + + + | Date | Type | Department | Care Team | Description | +--------+ + + + + | 04/22/ | Hospital | [facility] | | | | 2011 | Encounter | MED CTR XRAY [address] | | | | | | [place] | | | | | | [place] [address] | | | | | | [phone] | | | +--------+ + + + [...] + + + +---------+ + + | [place]-3 Fatty | CAPS, one capsule by | [...] | | | | | | [place] [address] | | | | | | [phone] | | | | | | | | +--------+ + + + + | 05/01/ | Procedure | Cardiology | | | | 2019 | visit | | | | +--------+ + + + + | 05/01/ | Office | Cardiology | Silvia, | | | 2019 | Visit | | PARISA Vernon [address] | | | | | | [place], | | | | | | [place] [address] | | | | | | [phone] | | | | | | | | +--------+ + + + + | 05/21/ | Implant | Cardiology | Daljit Singletary, | Remote Device | | 2019 | Monitor | | MD [address] [place] | Interrogation | | | | | [place], | (Primary Dx); | | | | | [place] [address] | Pacemaker; | | | | | [phone] | Sinoatrial node | | | | [...] Performed At | + + + | [facility] Diagnostic Imaging Department | [place] | | [address] [facility] | [place] [facility] | | CT MYELOGRAM LUMBAR SPINE, | [...] Transcribed Date/Time: | | | 04/23/2012 11:06 Stone Driller: <Electronically Signed | | | by Jama Solis MD> 04/24/12 0730 | | + + + + + | Procedure Note | + + | Kevin, Rad Conversion - 12/29/2013 5:27 PM [facility] | | Diagnostic Imaging Department [address] [place] [address] | | CT MYELOGRAM LUMBAR SPINE, 04/22/2012 [...] <Electronically Signed by Jama Solis MD> 04/24/12 0730 | | | |L3-4: Minimal broad-based disk [...] 10:54 | |Transcribed Date/Time: 04/23/2012 11:06 | |Stone Driller: | |<Electronically Signed by Jama Solis MD> 04/24/12 0730 | + + + +---------+ + + | Performing | Address | City/State/Zipcode | Phone Number | | Organization | | | | + +---------+ + + | [facility] | | | | | [facility] | | | | + +---------+ + + CT Thoracic Spine w Contrast (04/22/2012 1:12 PM PDT) + + | Specimen | + + | | + + + + + | Narrative | Performed At | + + + | [facility] Diagnostic Imaging Department | [facility] | | [address] [facility] | [facility] | | THORACIC CT MYELOGRAM | DIAG [...] Transcribed Date/Time: 04/22/2012 17:32 | | | Stone Driller: <Electronically Signed by Jama Mason | | | MD Will> 04/23/12 1039 | | + + + + + | Procedure Note | + + | Kevin, Rad Conversion - 12/29/2013 5:27 PM [facility] | | Diagnostic Imaging Department [address] [facility] | | THORACIC CT MYELOGRAM CLINICAL HISTORY: [...] NORMAL RANGE FOR AGE. PLEASE SEE DETAILS CAROLYN Fitzpatrick. | | | |Dictated Date/Time: 04/22/2012 16:56 | |Transcribed Date/Time: 04/22/2012 17:32 | |Stone Driller: | |<Electronically Signed by Jama Solis MD> 04/23/12 1039 | + + + +---------+ + + | Performing | Address | City/State/Zipcode | Phone Number | | Organization | | | | + +---------+ + + | [place] | | | | | [facility] | | | | + +---------+ + + CT Cervical Spine w Contrast (04/22/2012 1:12 PM PDT) + + | Specimen | + + | | + + + + + | Narrative | Performed At | + + + | [facility] Diagnostic Imaging Department | [facility] | | [address] [facility] | [facility] | | CT MYELOGRAM CERVICAL SPINE | DIA IMG | | CLINICAL HISTORY: PRIOR C5-6 [...] Similar study from | | | 09/02/2009, [facility]. FINDINGS: Firm bony ankylosis | | [...] Transcribed Date/Time: | | | 04/22/2012 17:25 Stone Driller: 1 <Electronically Signed | | | by Jama Solis MD> 04/23/12 1039 | | + + + + + | Procedure Note | + + | Kevin, Rad Conversion - 12/29/2013 5:27 PM [facility] | | Diagnostic Imaging Department | | [address] [facility] | | | | | | [...] | | COMPARISON: Similar study from 09/02/2009, [facility]. | | | | FINDINGS: Firm [...] | Transcribed Date/Time: 04/22/2012 17:25 | | Stone Driller: | | <Electronically Signed by Jama Solis MD> 04/23/12 1039 | + + + +---------+ + + | Performing | Address | City/State/Zipcode | Phone Number | | Organization | | | | + +---------+ + + | [place] | | | | | [facility] | | | | + +---------+ + + [place] Lumbar Puncture (04/22/2012 1:12 PM PDT) + + | Specimen | + + | | + + + + + | Narrative | Performed At | + + + | [facility] Diagnostic Imaging Department | [place] | | [address] [place] | [place] | | LUMBAR MYELOGRAM INJECTION FOR CT [...] Transcribed Date/Time: 04/22/2012 16:36 | | | Stone Driller: DEBRA <Electronically Signed by Jama Mason | | | MD Will> 04/23/12 1039 | | + + + + + | Procedure Note | + + | Kevin, Rad Conversion - 12/29/2013 5:27 PM [facility] | | Diagnostic Imaging Department [address] [place] [address] | | LUMBAR MYELOGRAM INJECTION FOR CT [...] 15:51 | |Transcribed Date/Time: 04/22/2012 16:36 | |Stone Driller: | |<Electronically Signed by Jama Solis MD> [...]
--- OUTSIDE RECORDS SUMMARY | ~2020-04-15 | XMS | Encounter Summary ---
Demographics + + + | Address | [address] | | | [place] [address] | + + + | Home Phone [...] Team Providers + +------+ + | Care Catalyst Plant Supervisor Name | Role | Phone | [...] | 09/30/ | Telephone | [facility] MD | Daljit Singletary, | Other (Danieljoao | | 2018 | | [place] [address] | [address] | remote) | | | | [place], | [place], | | | | | [place] [address] | [place] [address] | | | | | [phone] | [phone] | | | | | | | [...] | | | | | | [place] [address] | | | | | | [phone] | | | | | | | | +--------+ + + + + | 05/01/ | Procedure | Cardiology | | | | 2019 | visit | | | | +--------+ + + + + | 05/01/ | Office | Cardiology | Silvia, | | | 2019 | Visit | | [address] | | | | | | [place], | | | | | | [place] [address] | | | | | | [phone] | | | | | | | | +--------+ + + + + | 05/21/ | Implant | Cardiology | Daljit Singletary, | Remote Device | 2019 | Monitor | | MD [address] | Interrogation | | | | | [place], | (Primary Dx); | | | | | [place] [address] | Pacemaker; | | | | | [phone] | Sinoatrial node | | | | | | dysfunction (HCC) | | | | | | with symptomatic | | | | | | bradycardia | +--------+ + + + + documented as of this encounter Visit Diagnoses Not on filedocumented in this encounter"
--- OUTSIDE RECORDS SUMMARY | ~2020-04-15 | XMS | Encounter Summary ---
Demographics + + + | Address | [address] | | | [place] [address] | + + + | Home Phone [...] Team Providers + +------+ + | Care Ruby Rails Developer Name | Role | Phone | + +------+ + | Michael Amanda DO | PCP | | + +------+ + Reason for Visit + + + | Reason | Comments | + + + | Follow-up | One month with [facility] 12/25/13 | + + + | Chest Pain | | + + + Encounter Details +--------+---------+ + + + | Date | Type | Department | Care Team | Description | +--------+---------+ + + + | 01/29/ | Office | [facility] | [place], | Other chest pain | | 2013 | Visit | CARDIOLOGY [address] | PAR[place] [address] | (Primary Dx); Chest | | | | [place], | [place], | pain; Coronary | | | | [place] [address] | [place] [address] | artery disease; | | | | [phone] | [phone] | Hyperlipidemia; | | | | | [...] last week to the emergency room at [facility] with a baljit st pain episode. [...] needed for Chest pain. 25 tablet 12 [place]-3 Fatty Acids (SALMON OIL-1000 PO) CAPS, one [...] was seen on the emergency room at [place] on 01/26/2014, he was ruled out A [...] pain. He is in class II of [place] Heart Association functional class. There [...] arrhythmia performed by Dr. Gambino at [facility] on 01/30/2013. Patient had spontaneous PVCs [...] to go back in 3 days to [place] for an attempt of ablation under general [...] symptoms. He is in class II of [place] Heart Association functional class. There [...] made to ensure accuracy; however, inadvertent computerized credit product analyst errors may be pre sent. Electronically signed [...] | | | | | | [place] [address] | | | | | | [phone] | | | | | | | [...] | | | | | | [place] [address] | | | | | | [phone] | | | | | | | | +--------+ + + + + | 05/21/ | Implant | Cardiology | Gemini Shaistakenneth, | Remote Device | | 2019 | Monitor | | [address] [facility] | Interrogation | | | | | [place], | (Primary Dx); | | | | | [place] [address] | Pacemaker; | | | | | [phone] | Sinoatrial node | | | | | | dysfunction ([facility]) | | | | | | [...] of unspecified type of vessel, | | sun'aq or graft | + + | Hyperlipidemia Other and unspecified hyperlipidemia | + + | Symptomatic PVCs Other premature beats | + + | Hypertension Unspecified essential hypertension | + + documented in this encounter
--- OUTSIDE RECORDS SUMMARY | ~2020-04-15 | XMS | Encounter Summary ---
Demographics + + + | Address | [address] | | | [place] [address] | + + + | Home Phone [...] Team Providers + +------+ + | Care Seals Engraver Name | Role | Phone | [...] + + | 12/29/ | Office | [facility] | [place], | Ascending thoracic | | 2017 | Visit | CARDIOLOGY [address] | [place] [address] | aortic aneurysm | | | | [place], | [place], | (HCC) (Primary Dx); | | | | [place] [address] | [place] [address] | Coronary artery | | | | [phone] | [phone] | disease involving | | | | | | pit river coronary | | | | | | artery of [place] river | | | | | | heart [...] of non-critical coronary artery d isease involving [place] coronary artery of [place] heart without angina pectoris, essential h ypertension, [...] start Losartan 25 mg once every day, [facility] blood pressure log, and follow up in 3 months. Since that time, he went to the ER in [facility] with chest pain at the end of [...] Preventative health care Coronary artery disease involving [place] coronary artery of [place] heart without angina pectoris Cannabis abuse, daily [...] 3RD DOSE, CALL 911 100 tablet 3 [place]-3 Fatty Acids (SALMON OIL-1000 PO) CAPS, one capsule by mouth daily twice daily ONE TOUCH DELICA LANCETS [facility] [place] Check glucose as needed for hypoglycemia [...] was found Confirmed by SYDNI SINGLETARY MD ([id number]) on 06/23/2016 2:08:15 PM LAB RESULTS reviewed [...] PLTEX 129* 05/12/2016 I reviewed records from [facility] for office visit on 09/01/2016 which [...] He is in class I of the [place] Heart Association functional class. On physical examination there are no signs of fl uid overload. 2. Non-critical Coronary artery disease involving pit [place] coronary a rtery of [place] heart without angina pectoris: A. Normal exercise [...] to go back in 3 days to [place] for an attempt of ablation under general [...] is a normal stable device function. Estimated MitoProdi ng battery longevity is 5 years.. 5. Lightheadedness and dizziness/ presyncope: A. Episode of presyncope [facility]28/[facility], thought to have vasovagal symptoms. [...] this chart may have been created with Songbird voice recognition software. Occasi onal wrong-word or [...] W | | | | | | [place], | | | | | | [place] [address] | | | | | | [phone] | | | | | | | | +--------+ + + + + | 05/01/ | Procedure | Cardiology | | | | 2019 | visit | | | | +--------+ + + + + | 05/01/ | Office | Cardiology | Silvia | | | 2019 | Visit | | [address] | | | | | | [place], | | | | | | [place] [address] | | | | | | [phone] | | | | | | | | +--------+ + + + + | 05/21/ | Implant | Cardiology | Sydni Singletary, | Remote Device | 2019 | Monitor | | MD Sim [place] | Interrogation | | | | | [place], | (Primary Dx); | | | | | [place] [address] | Pacemaker; | | | | | [phone] | Sinoatrial node | | | | [...] + + | Coronary artery disease involving pit river coronary artery of [place] heart without | | angina pectoris | + + | Essential hypertension with goal blood pressure less than 130/80 | + + | Hyperlipidemia, mixed Mixed hyperlipidemia | + + documented in this encounter
--- OUTSIDE RECORDS SUMMARY | ~2020-04-15 | XMS | Encounter Summary ---
Demographics + + + | Address | [address] | | | [place] [address] | + + + | Home Phone [...] Providers + +------+ + | Care High Lead Yarder Name | Role | Phone | + [...] + + | 01/03/ | Telephone | [facility] | Emmanuel Daniel MD | Results, Pathology | | 2018 | | GASTROENTEROLOGY | [address] [place] | (egd,colon) | | | | [address] [place] | [address] [place], [place] | | | | | [address] [place], [place] | [address] | | | | | [address] | | | | | | [phone] | | | +--------+ + + + [...] | | | | | | [place] [address] | | | | | | [phone] | | | | | | | [...] | | | | | | [place] [address] | | | | | | [phone] | | | | | | | | +--------+ + + + + | 05/21/ | Implant | Cardiology | Daljit Singletary, | Remote Device | 2019 | Monitor | | [address] | Interrogation | | | | | [place], | (Primary Dx); | | | | | [place] [address] | Pacemaker; | | | | | [phone] | Sinoatrial node | | | | | | dysfunction (HCC) | | | | | | with symptomatic | | | | | | bradycardia | +--------+ + + + + documented as of this encounter Visit Diagnoses Not on filedocumented in this encounter"
--- OUTSIDE RECORDS SUMMARY | ~2020-04-15 | XMS | Encounter Summary ---
Demographics + + + | Address | [address] | | | [place] [address] | + + + | Home Phone [...] Providers + +------+ + | Care Special Machine Stitcher Name | Role | Phone | + +------+ + | Kirk French MD | PCP | | + +------+ + Encounter Details +--------+---------+ + + + | Date | Type | Department | Care Team | Description | +--------+---------+ + + + | 01/05/ | Surgery | [facility] | Emmanuel Daniel MD | EGD | | 2019 | | MED CTR MP INTRA OP | [address] [place] | | | | | [address] | [address] [place], [place] | | | | | [place], [place] | [address] | | | | | [address] | | | | | | [phone] | | | +--------+---------+ + + + [...] for a few hours. Date Last Reviewed: 09/22/201619996148-0376 [employer]. [address] [place] [address]. All righ ts reserved. This information is [...] vomiting, or vomiting blood Date Last Reviewed: 05/22/201619990020-4689 [employer]. [address] [place] [address]. All righ ts reserved. This information is [...] You can't be awakened Date Last Reviewed: 09/08/201619991873-9594 [employer]. [address] [place] [address], [place] [address]. All righ ts reserved. This information is [...] + + + +---------+ + + | [place]-3 Fatty | CAPS, one capsule by [...] | | | | | | [place] [address] | | | | | | [phone] | | | | | | | [...] | | | | | | [place] [address] | | | | | | [phone] | | | | | | | | +--------+ + + + + | 05/21/ | Implant | Cardiology | Daljit Singletary, | Remote Device | | 2019 | Monitor | | [address] | Interrogation | | | | | [place], | (Primary Dx); | | | | | [place] [address] | Pacemaker; | | | | | [phone] | Sinoatrial node | | | | | | dysfunction ([facility]) | | | | | [...] [address], | REFERENCE LAB | | [place] [id number] Access Database Developer: Miguel Galarza MD, Phone: | THALIARP - KINA | | [phone] | | + + + + + + + + | Performing | Address | City/State/Zipcode | Phone Number | | Organization | | | | + + + + + | REFERENCE LAB | [address] | [place], [place] | [phone] | | [facility] | [facility] | [address] | | + + + + + [...] + + | Performed at: 01 - [facility] [address], | REFERENCE LAB | | [place] [id number] Access Database Developer: Miguel Galarza MD, Phone: | ARSH CASTANON | | [phone] | | + + + + + + + + | Performing | Address | City/State/Zipcode | Phone Number | | Organization | | | | + + + + + | REFERENCE LAB | [address] [facility] [address] | [place], [place] | [phone] | | ARSH CASTANON | [facility] | [address] | | + + + + + [...] [address] | [place] | [phone] | | [facility] | | [address] | | | - LABORATORY | | [...] [address] | [place] | [phone] | | [facility] | | [address] | | | - LABORATORY | | [...] | | | dium | | | u[address] MICHELLE | | | Antigen | [...] [address] | [place] | [phone] | | [facility] | | [address] | | | - LABORATORY | | [...] | | | Antigen, | | | MICHELLE | | | Stool | | [...] [address] | [place] | [phone] | | [facility] | | [address] | | | - LABORATORY | | [...] [address] | [place] | [phone] | | [facility] | | [address] | | | - LABORATORY | | [...] [address] | [place] | [phone] | | [facility] | | [address] | | | - LABORATORY | | | | + + + + + DAVIAN (01/05/2019 8:36 AM PST) + + | Specimen | + + | | + + + + -+ | Narrative | Performed At | + + -+ | | [facility] | | GastroenterologyPatient Name: Moe Venegas Date: | PROVATION | | 01/05/2019 8:36 AMMRN: [id number] #: [id number] of : | | | 9Admit Type: AmbulatoryAge: 58Room: [facility] 01Gender: MaleNote | | | Status: FinalizedAttending MD: Emmanuel Daniel , [facility]cedure: | | | Upper GI endoscopyIndications: Diarrhea, Weight | | | lossProviders: Emmanuel Daniel MD, Heidi An, | | | RN, Kim Hicks, Radial Drill Operator For Plastic, | | | Jarett Barakat MD (Anesthesia [...] physician, the nurse, the anesthesiologist and the copier repair technician | | | in the endoscopy [...] | | Imaging was performed using the [employer] | | | Endoscopy (FICE) [...] Scope In: 8:43:57 AMScope Out: 8:49:50 AM [place]. | | | [facility], [address] [place] [address] | | | [phone] | | |Recommendation: | | | - [...] |Scope Out: 8:49:50 AM | | | Formerly [facility], [address] [facility], [place], [place] | | | [address] | | + + -+ + +---------+ [...] | PROVATION | | 01/05/2019 8:36 AMMRN: [id number] #: [id number] of : | | | 9Admit Type: AmbulatoryAge: 58Room: [facility] 01Gender: MaleNote | | | Status: FinalizedAttending MD: Emmanuel Daniel , [facility]cedure: | | | ColonoscopyIndications: Clinically significant diarrhea of | | | unexplained origin, Weight lossProviders: | | | Emmanuel Daniel MD, Heidi An RN, Kim | | | Fiorella Hicks, Radial Drill Operator For Plastic, Jarett P. | | | MD Roshni (Anesthesia Staff)Referring [...] | | | the anesthesiologist and the copier repair technician in the endoscopy suite. | | [...] AMScope Out: | | | 9:06:28 AM [facility], [address] [place] [address], | | | [place] [address] | | | - Discharge patient to [...] |Scope Out: 9:06:28 AM | | | [facility], [address] [place] [address], [place], [place] | | | [address] | | + + -+ + +---------+ [...] | | | (atherosclerotic heart disease of [place] coronary artery without | | | angina [...] or | | | microscopic colitis. BES:[facility]:C3NR GROSS DESCRIPTION: A. The | | | specimen, labeled "Laura, duodenal biopsy" is received in formalin | | | and consists of seven 0.1-0.5 cm lin fragments. Entirely submitted in | | | (A1). B. The specimen, labeled "[place], right colon" is received | | | in formalin and consists of six 0.2-0.3 cm lin fragments. Entirely | | | submitted in (B1). C. The specimen, labeled "[place], left colon" | | | is received in formalin and consists of six 0.2-0.3 cm lin-pink | | | fragments. Entirely submitted in (C1). am:AMB:portillo PERFORMING | | | LABORATORY: The technical component was performed by [facility] | | | [facility], [address] [place] [address] (Cap And Stud Machine Operator: | | | Kailey Stafford MD; CLIA# [id number]). Professional interpretation was | | | performed by Neul, [facility], [address] | | | [place] [address] (Cap And Stud Machine Operator: Ishaan | | | Anthony Dao; [facility]#: [id number]). Diagnostician: Ishaan Fitzpatrick | | | Sylwia [...]
--- OUTSIDE RECORDS SUMMARY | ~2020-04-15 | XMS | Encounter Summary ---
Demographics + + + | Address | [address] | | | [place] [address] | + + + | Home Phone [...] Providers + +------+ + | Care Network Diagnostic Support Specialist Name | Role | Phone [...] | CARDIOLOGY [address] | Interrogation | | | | [place], | [place], | (Primary Dx); | | | | [place] [address] | [place] [address] | Presence of | | | | [phone] | [phone] | permanent cardiac | | | | [...] | | | | | | [place] [address] | | | | | | [phone] | | | | | | | | +--------+ + + + + | 05/01/ | Procedure | Cardiology | | | | 2019 | visit | | | | +--------+ + + + + | 05/01/ | Office | Cardiology | Silvia, | | | 2019 | Visit | | [address] | | | | | | [place], | | | | | | [place] [address] | | | | | | [phone] | | | | | | | | +--------+ + + + + | 05/21/ | Implant | Cardiology | Daljit Singletary, | Remote Device | | 2019 | Monitor | | [place] [address] [place] | Interrogation | | | | | [place], | (Primary Dx); | | | | | [place] [address] | Pacemaker; | | | | | [phone] | Sinoatrial node | | | | [...] remote PDF scanned into | | | [facility] for remote interrogation results. Data [...]
--- OUTSIDE RECORDS SUMMARY | ~2020-04-15 | XMS | Encounter Summary ---
Demographics + + + | Address | [address] | | | [place] [address] | + + + | Home Phone [...] Team Providers + +------+ + | Care Continuing Education Director Name | Role | Phone | [...] 2012 | | CARDIOLOGY [address] | PHLEBOTOMY TECH [address] | faxed) | | | | [place], | [facility] [place] [facility] [place] | | | | | [place] [address] | [address] | | | | | [phone] | | | +--------+ + + + [...] W | | | | | | [place], | | | | | | [place] [address] | | | | | | [phone] | | | | | | | | +--------+ + + + + | 05/01/ | Procedure | Cardiology | | | | 2019 | visit | | | | +--------+ + + + + | 05/01/ | Office | Cardiology | Silvia, | | | 2019 | Visit | | [address] | | | | | | [place], | | | | | | [place] [address] | | | | | | [phone] | | | | | | | | +--------+ + + + + | 05/21/ | Implant | Cardiology | Daljit Singletary, | Remote Device | | 2019 | Monitor | | [address] [facility] | Interrogation | | | | | [place], | (Primary Dx); | | | | | [place] [address] | Pacemaker; | | | | | [phone] | Sinoatrial node | | | | | | dysfunction (HCC) | | | | | | with symptomatic | | | | | | bradycardia | +--------+ + + + + documented as of this encounter Visit Diagnoses Not on filedocumented in this encounter"
--- OUTSIDE RECORDS SUMMARY | ~2020-04-15 | XMS | Encounter Summary ---
Demographics + + + | Address | [address] | | | [place] [address] | + + + | Home Phone [...] Team Providers + +------+ + | Care Raveler Name | Role | Phone | + +------+ + PCP | Unavailable | + +------+ + Encounter Details +--------+ + + + + | Date | Type | Department | Care Team | Description | +--------+ + + + + | 09/08/ | [facility] | [facility] | Naresh Mckeon | | | 1998 | Encounter | MED CTR SLEEP | MD Chaya [address] | | | | | CENTER [address] | [place] | | | | | [place] | [place] [address] | | | | | [address] | [phone] | | | | | [phone] | | | +--------+ + + + [...] | | | | | | [place] [address] | | | | | | [phone] | | | | | | | [...] | | | | | | [place] [address] | | | | | | [phone] | | | | | | | | +--------+ + + + + | 05/21/ | Implant | Cardiology | Daljit Singletary, | Remote Device | 2019 | Monitor | | MD [address] [place] | Interrogation | | | | | [place], | (Primary Dx); | | | | | [place] [address] | Pacemaker; | | | | | [phone] | Sinoatrial node | | | | | | dysfunction (HCC) | | | | | | with symptomatic | | | | | | bradycardia | +--------+ + + + + documented as of this encounter Visit Diagnoses Not on filedocumented in this encounter"
--- OUTSIDE RECORDS SUMMARY | ~2020-04-15 | XMS | Encounter Summary ---
Demographics + + + | Address | [address] | | | [place] [address] | + + + | Home Phone [...] Providers + +------+ + | Care Psychologist Engineering Name | Role | Phone | + +------+ + | Kirk French MD | PCP | | + +------+ + Encounter Details +--------+---------+ + + + | Date | Type | Department | Care Team | Description | +--------+---------+ + + + | 09/26/ | Office | [facility] | Kirk French | Weight loss (Primary | | 2018 | Visit | [facility] | MD Brea [address] | Dx); Bipolar | | | | [facility] [address] | affective disorder, | | | | [address] | [place] [address] | remission status | | | | [place], [place] | [phone] | unspecified (HCC); | | | | [address] | | Mixed anxiety | | | | [phone] | | depressive disorder; | | | [...] [employer] Peptic ulcer disease Premature ventricular contraction [facility] health care 06/26/2013 LAST PSA:12/16/2010 RESULT:0.14 [...] Surgeon: Daljit Singletary MD; Location: [facility] CV LAB CARDIAC CATHERIZATION N/A 01/25/2019 Procedure: CV Cor Angio; Surgeon: Daljit Singletary MD; Location: [facility] CV LAB COLONOSCOPY N/A 12/24/2017 Procedure: COLONOSCOPY; Surgeon: Emmanuel Daniel MD; Location: [facility] MEDICAL PROCEDURE UNIT COLONOSCOPY N/A 01/05/2019 Procedure: COLONOSCOPY; Surgeon: Emmanuel Daniel MD; Location: [facility] MEDICAL PROCEDURE UNIT EGD 12/24/2017 HARDWARE REMOVAL [...] Surgeon: Emmanuel Daniel MD; Location: [facility] MEDICAL PROCEDURE UNIT UPPER GASTROINTESTINAL ENDOSCOPY N/A 01/05/2019 Procedure: EGD; Surgeon: Emmanuel Daniel MD; Location: [facility] MEDICAL PROCEDURE UNIT URETEROSCOPY Left 04/13/2019 Procedure: Cystoscopy, Left ureteroscopy with laser lithotripsy, Left ureteral stent place ment; Surgeon: Matthew Uriarte MD; Location: [facility] MAIN OR VASECTOMY Social History Socioeconomic History [...] ONE TABLET UNDER THE TONGUE EVERY 5 NC NUTES NEEDED FOR CHEST PAIN 250 tablet 0 [place]-3 Fatty Acids (SALMON OIL-1000 PO) CAPS, one capsule by mouth daily twice daily ondansetron (ZOFRAN ODT) 4 mg disintegrating tablet Take 4 mg by mouth every 8 hours as needed for Nausea. ONE TOUCH DELICA LANCETS [facility] [...] PLT 169 06/02/2019 No results found for: RHZMOIGX17 No results found for: FOLATE No results [...] Co multiple ER visits Going again to [facility] tomorrow Already followed by GI Co in [...] dollars a month. We will defer to [facility], perhaps to have some sort of a [...] | | | | | | [place] [address] | | | | | | [phone] | | | | | | | | +--------+ + + + + | 05/01/ | Procedure | Cardiology | | | 2019 | visit | | | | +--------+ + + + + | 05/01/ | Office | Cardiology | Silvia, | | | 2019 | Visit | | [address] | | | | | | [place], | | | | | | [place] [address] | | | | | | [phone] | | | | | | | | +--------+ + + + + | 05/21/ | Implant | Cardiology | Daljit Singletary, | Remote Device | | 2019 | Monitor | | [address] | Interrogation | | | | | [place], | (Primary Dx); | | | | | [place] [address] | Pacemaker; | | | | | [phone] | Sinoatrial node | | | | | | dysfunction ([facility]) | | | | | [...]
--- OUTSIDE RECORDS SUMMARY | ~2020-04-15 | XMS | Encounter Summary ---
Demographics + + + | Address | [address] | | | [place] [address] | + + + | Home Phone [...] Team Providers + +------+ + | Care Pillar Worker Name | Role | Phone | [...] Provider Unknown | | | | | [place], [place] | [phone] | | | | | [address] | | | | | | [phone] | | | +--------+ + + + [...] + + + +---------+ + + | [place]-3 Fatty | CAPS, one capsule by | [...] | | | | | | | #[id number], exp 07/2016 | | | | | [...] | | | | | | [place] [address] | | | | | | [phone] | | | | | | | | +--------+ + + + + | 05/01/ | Procedure | Cardiology | | | | 2019 | visit | | | | +--------+ + + + + | 05/01/ | Office | Cardiology | Silvia, | | | 2019 | Visit | | [address] | | | | | | [place], | | | | | | [place] [address] | | | | | | [phone] | | | | | | | | +--------+ + + + + | 05/21/ | Implant | Cardiology | Daljit Singletary, | Remote Device | | 2020 | Monitor | | [address] [place] | Interrogation | | | | | [place], | (Primary Dx); | | | | | [place] [address] | Pacemaker; | | | | | [phone] | Sinoatrial node | | | | [...]
--- OUTSIDE RECORDS SUMMARY | ~2020-04-15 | XMS | Encounter Summary ---
Demographics + + + | Address | [address] | | | [place] [address] | + + + | Home Phone [...] Team Providers + +------+ + | Care Liquefied Petroleum Gasfitter Name | Role | Phone | + [...] [address] | | | | | | [place], [place] | (Fax) | | | | | [address] | | | | | | [phone] | | | +--------+ + + + [...] | | | | | | [place] [address] | | | | | | [phone] | | | | | | | | +--------+ + + + + | 05/01/ | Procedure | Cardiology | | | | 2019 | visit | | | | +--------+ + + + + | 05/01/ | Office | Cardiology | Silvia, | | | 2019 | Visit | | [address] | | | | | | [place], | | | | | | [place] [address] | | | | | | [phone] | | | | | | | | +--------+ + + + + | 05/21/ | Implant | Cardiology | Daljit Singletary, | Remote Device | | 2019 | Monitor | | [address] [place] | Interrogation | | | | | [place], | (Primary Dx); | | | | | [place] [address] | Pacemaker; | | | | | [phone] | Sinoatrial node | | | | | | dysfunction (HCC) | | | | | | with symptomatic | | | | | | bradycardia | +--------+ + + + + documented as of this encounter Visit Diagnoses Not on filedocumented in this encounter"
--- OUTSIDE RECORDS SUMMARY | ~2020-04-15 | XMS | Encounter Summary ---
Demographics + + + | Address | [address] | | | [place] [address] | + + + | Home Phone [...] Providers + +------+ + | Care Chief Strategy Officer Name | Role | Phone | [...] [address] | | | | | [place], | [place], | | | | | [place] [address] | [place] [address] | | | | | [phone] | [phone] | | | | | | | [...] | | | | | | [place] [address] | | | | | | [phone] | | | | | | | | +--------+ + + + + | 05/01/ | Procedure | Cardiology | | | | 2019 | visit | | | | +--------+ + + + + | 05/01/ | Office | Cardiology | [place], | | | 2019 | Visit | | [address] [address] | | | | | | [place], | | | | | | [place] [address] | | | | | | [phone] | | | | | | | | +--------+ + + + + | 05/21/ | Implant | Cardiology | Daljit Singletary, | Remote Device | 2019 | Monitor | | [address] [place] | Interrogation | | | | | [place], | (Primary Dx); | | | | | [place] [address] | Pacemaker; | | | | | [phone] | Sinoatrial node | | | | | | dysfunction (HCC) | | | | | | with symptomatic | | | | | | bradycardia | +--------+ + + + + documented as of this encounter Visit Diagnoses Not on filedocumented in this encounter"
--- OUTSIDE RECORDS SUMMARY | ~2020-04-15 | XMS | Encounter Summary ---
Demographics + + + | Address | [address] | | | [place] [address] | + + + | Home Phone [...] Team Providers + +------+ + | Care Structural Metal Fabricator Apprentice Name | Role | Phone | [...] [address] | | | | | [place], | [place], | | | | | [place] [address] | [place] [address] | | | | | [phone] | [phone] | | | | | | | [...] | | | | | | [place], | | | | | | [place] [address] | | | | | | [phone] | | | | | | | | +--------+ + + + + | 05/01/ | Procedure | Cardiology | | | | 2019 | visit | | | | +--------+ + + + + | 05/01/ | Office | Cardiology | Silvia, | | | 2019 | Visit | | [address] | | | | | | [place], | | | | | | [place] [address] | | | | | | [phone] | | | | | | | | +--------+ + + + + | 05/21/ | Implant | Cardiology | Daljit Singletary, | Remote Device | 2019 | Monitor | | [address] [place] | Interrogation | | | | | [place], | (Primary Dx); | | | | | [place] [address] | Pacemaker; | | | | | [phone] | Sinoatrial node | | | | | | dysfunction (HCC) | | | | | | with symptomatic | | | | | | bradycardia | +--------+ + + + + documented as of this encounter Visit Diagnoses Not on filedocumented in this encounter"
--- OUTSIDE RECORDS SUMMARY | ~2020-04-15 | XMS | Encounter Summary ---
Demographics + + + | Address | [address] | | | [place] [address] | + + + | Home Phone [...] Team Providers + +------+ + | Care Chicken Tender Name | Role | Phone | [...] Provider Unknown | | | | | [place], [place] | [phone] | | | | | [address] | | | | | | [phone] | | | +--------+ + + + [...] + + + +---------+ + + | [place]-3 Fatty | CAPS, one capsule by | [...] W | | | | | | [place], | | | | | | [place] [address] | | | | | | [phone] | | | | | | | | +--------+ + + + + | 05/01/ | Procedure | Cardiology | | | | 2019 | visit | | | | +--------+ + + + + | 05/01/ | Office | Cardiology | Silvia, | | | 2019 | Visit | | [address] | | | | | | [place], | | | | | | [place] [address] | | | | | | [phone] | | | | | | | | +--------+ + + + + | 05/21/ | Implant | Cardiology | Daljit Singletary, | Remote Device | | 2019 | Monitor | | [address] [place] | Interrogation | | | | | [place], | (Primary Dx); | | | | | [place] [address] | Pacemaker; | | | | | [phone] | Sinoatrial node | | | | [...]
--- OUTSIDE RECORDS SUMMARY | ~2020-04-15 | XMS | Clinical Summary ---
Demographics + + + | Address | [address] [place] [address] | | | [place] [address] | + + + | Home Phone [...] [place] | | | | | [address] | | + + + + + Care Team Providers + +------+ + | Care Vehicle Damage Appraiser Name | Role | Phone | + +------+ + | Darion Holden DO | PCP | | + +------+ + Source Comments IVETTE is fully live on both EpicCare Ambulatory and EpicCare InPatient.[facility] Allergies + + + + + [...] | | | | | | | [address] | | + +--------+ +--------+ + +--------+ | [employer] | [employer]ARP | [phone] | 11/22/19 | [phone] | [address] | Indemn | | RETIRED PEOPLE | | | 10-Pre | 9 | [phone] | ity | | | | | sent | | [place] | | | | | | | | [address] | | + +--------+ +--------+ + +--------+ + +--------+ +--------+ + + | Guarantor Name | Accoun | Relation to | Date | Phone | Billing Address | | | t Type | Patient | of | | | | | | | | | | + +--------+ +--------+ + + | Moe Sanchez | Person | Self | [birth year] | [address] | | | cristo/Per | | 1960 | [phone] | [place] | | | roxanne | | | 8 (Home) | [address] | + +--------+ +--------+ + + Advance Directives + + + + + | Type | Date Recorded | Patient | Explanation | | | | Oil Pipe Inspector Helper | | + + + + + | Advance | | | | | Directives and | | | | | Living Will | | | | + + + + + | Power of | | | | | Hospitalist Nocturnist Physician | | | | + + + + +
--- OUTSIDE RECORDS SUMMARY | ~2020-04-15 | XMS | Encounter Summary ---
Demographics + + + | Address | [address] | | | [place] [address] | + + + | Home Phone [...] Providers + +------+ + | Care Web Communications Specialist Name | Role | Phone | [...] + | 12/23/ | Telephone | [facility] | Daljit Singletary, | Other (question | | 2015 | | CARDIOLOGY [address] | [address] [place] | about diet | | | | [place], | [place], | medication) | | | | [place] [address] | [place] [address] | | | | | [phone] | [phone] | | | | | | | [...] [place] | | | | | | [place] [address] | | | | | | [phone] | | | | | | | | +--------+ + + + + | 05/01/ | Procedure | Cardiology | | | | 2019 | visit | | | | +--------+ + + + + | 05/01/ | Office | Cardiology | [place]via | | | 2019 | Visit | | Janeen, LOADER DEMOLDER [address] | | | | | | [place], | | | | | | [place] [address] | | | | | | [phone] | | | | | | | | +--------+ + + + + | 05/21/ | Implant | Cardiology | Daljit Singletary, | Remote Device | | 2020 | Monitor | | MD [address] | Interrogation | | | | | [place], | (Primary Dx); | | | | | [place] [address] | Pacemaker; | | | | | [phone] | Sinoatrial node | | | | | | dysfunction ([facility]) | | | | | | with symptomatic | | | | | | bradycardia | +--------+ + + + + documented as of this encounter Visit Diagnoses Not on filedocumented in this encounter"
--- OUTSIDE RECORDS SUMMARY | ~2020-04-15 | XMS | Encounter Summary ---
Demographics + + + | Address | [address] | | | [place] [address] | + + + | Home Phone [...] Team Providers + +------+ + | Care Raw Sampler Name | Role | Phone | + [...] [place], [place] | | | | | [place] | | [address] Phone: | | | | | CYSTO/URETER | | [phone] | | | | | O | | Fax: | | | | | W/LITHOTRIPS | | [phone] | | | | | Y &INDWELL [...] + + | 04/13/ | Hospital | [facility] | Matthew Uriarte | Preoperative | | 2019 | Encounter | MED CTR OR INTRA OP | Dahl, MD [address] | clearance (Primary | | | | [address] | [address] [place] | Dx); Left ureteral | | | | [place] | [address] | calculus; Kidney | | | | [address] | | stones | | | | [phone] | | | +--------+ + + + [...] Care Everywhere.Kidney Stones, Treating: Ureteroscopic Stone Removal (Latvian)Stents, Ureteral (Latvian)documented in this encounter Medications at Time [...] + + +---------+ + + | [place]-3 Fatty | CAPS, one capsule by | [...] | | | | | | | [place] coronary | | | | | | | artery of [place] | | | | | | | [...] | | | | | | [place] [address] | | | | | | [phone] | | | | | | | | +--------+ + + + + | 05/01/ | Procedure | Cardiology | | | | 2019 | visit | | | | +--------+ + + + + | 05/01/ | Office | Cardiology | [place]via, | | | 2019 | Visit | | [place] [address] | | | | | | [place], | | | | | | [place] [address] | | | | | | [phone] | | | | | | | | +--------+ + + + + | 05/21/ | Implant | Cardiology | Daljit Singletary, | Remote Device | | 2019 | Monitor | | [address] | Interrogation | | | | | [place], | (Primary Dx); | | | | | [place] [address] | Pacemaker; | | | | | [phone] | Sinoatrial node | | | | [...] [facility] | | | | | | at:[phone]. | | | | + + + [...] test was developed and | | [facility] | | | | its performance | | - BKR | | | | characteristicsdetermine | | | | | | d by [facility]. It has not | | | | [...] + | Performed at: 01 - Arsh Stephens [address] [facility], | REFERENCE LAB | | [place], [place] [id number] Police Officer: Yeny Rios MD, Phone: | ARSH CASTANON | | [phone] | | + + + + + + + + | Performing | Address | City/State/Zipcode | Phone Number | | Organization | | | | + + + + + | REFERENCE LAB | [address] | [place], [place] | [phone] | | ARSH CASTANON | [facility] | [address] | | + + + + + [...] + | [facility] | [address] | [place] | [phone] | | [facility] | | [address] | | | - LABORATORY | | [...] + | [facility] | [address] | [place] | [phone] | | [facility] | | [address] | | | - LABORATORY | | [...] + | [facility] | [address] | [place] | [phone] | | [facility] | | [address] | | | - LABORATORY | | [...] + | [facility] | [address] | [place] | [phone] | | [facility] | | [address] | | | - LABORATORY | | [...] | mL/min/1.73m2 | MICHELLE | | | VINCENTIAN | RATE,ESTIMATED | | MEDICAL | | | | mL/min/1.28s4Wlww than | | CENTER - | | [...] [address] | [place] | [phone] | | [facility] | | [address] | | | - LABORATORY | | [...] day), First | | | dose on Talia 04/13/19 at 1400, | | | Start [...] HR < 40, | | | Starting Talia 04/13/19 at 0917, For | | | [...] glucose < 50, | | | Starting [facility] 04/13/19 at 0634, | | | [...] | | | | | | | dhdrlh-fen-scuow use of at least | | | [...] day), | | | First dose on [facility] 04/13/19 at | | | 2030, [...]
--- OUTSIDE RECORDS SUMMARY | ~2020-04-15 | XMS | Encounter Summary ---
Demographics + + + | Address | [address] | | | [place] [address] | + + + | Home Phone [...] Providers + +------+ + | Care Power Tool Repair Technician Name | Role | Phone | + +------+ + | Kirk Fernch MD | PCP | | + +------+ + Encounter Details +--------+ + + + + | Date | Type | Department | Care Team | Description | +--------+ + + + + | 06/13/ | Abstract | [facility] [place] | [place], | | | 2018 | | CARDIOLOGY [address] | [place] [address] | | | | | [place], | [place], | | | | | [place] [address] | [place] [address] | | | | | [phone] | [phone] | | | | | | | [...] | | | | | | [place] [address] | | | | | | [phone] | | | | | | | [...] | | | | | | [place] [address] | | | | | | [phone] | | | | | | | | +--------+ + + + + | 05/21/ | Implant | Cardiology | Daljit Singletary, | Remote Device | | 2020 | Monitor | | [address] [facility] | Interrogation | | | | | [place], | (Primary Dx); | | | | | [place] [address] | Pacemaker; | | | | | [phone] | Sinoatrial node | | | | [...]
--- OUTSIDE RECORDS SUMMARY | ~2020-04-15 | XMS | Encounter Summary ---
Demographics + + + | Address | [address] | | | [place] [address] | + + + | Home Phone [...] Team Providers + +------+ + | Care Mammography Technologist Name | Role | Phone | [...] | | CARDIOLOGY [address] | Janeen FACE PAINTER [address] | | | | | [place], | [place], | | | | | [place] [address] | [place] [address] | | | | | [phone] | [phone] | | | | | | | [...] W | | | | | | [place], | | | | | | [place] [address] | | | | | | [phone] | | | | | | | | +--------+ + + + + | 05/01/ | Procedure | Cardiology | | | | 2019 | visit | | | | +--------+ + + + + | 05/01/ | Office | Cardiology | Silvia, | | | 2019 | Visit | | PARISA [place] [address] | | | | | | [place], | | | | | | [place] [address] | | | | | | [phone] | | | | | | | | +--------+ + + + + | 05/21/ | Implant | Cardiology | Daljit Singletary, | Remote Device | | 2019 | Monitor | | [address] [facility] | Interrogation | | | | | [place], | (Primary Dx); | | | | | [place] [address] | Pacemaker; | | | | | [phone] | Sinoatrial node | | | | | | dysfunction (HCC) | | | | | | with symptomatic | | | | | | bradycardia | +--------+ + + + + documented as of this encounter Visit Diagnoses Not on filedocumented in this encounter"
--- OUTSIDE RECORDS SUMMARY | ~2020-04-15 | XMS | Encounter Summary ---
Demographics + + + | Address | [address] | | | [place] [address] | + + + | Home Phone [...] Team Providers + +------+ + | Care Renderer Name | Role | Phone | + +------+ + PCP | Unavailable | + +------+ + Encounter Details +--------+ + + + + | Date | Type | Department | Care Team | Description | +--------+ + + + + | 06/13/ | [facility] | [facility] | Daljit Singletary, | | | 2008 | Encounter | MED CTR LABORATORY | [address] | | | | | [address] [place] | [place], | | | | | [place] | [place] [address] | | | | | [address] | [phone] | | | | | [phone] | | | +--------+ + + + [...] | | | | | | [place], | | | | | | [place] [address] | | | | | | [phone] | | | | | | | | +--------+ + + + + | 05/01/ | Procedure | Cardiology | | | | 2019 | visit | | | | +--------+ + + + + | 05/01/ | Office | Cardiology | Silvia | | | 2019 | Visit | | [place] [address] | | | | | | [place], | | | | | | [place] [address] | | | | | | [phone] | | | | | | | | +--------+ + + + + | 05/21/ | Implant | Cardiology | Daljit Singletary, | Remote Device | 2019 | Monitor | | MD [address] [place] | Interrogation | | | | | [place], | (Primary Dx); | | | | | [place] [address] | Pacemaker; | | | | | [phone] | Sinoatrial node | | | | | | dysfunction (HCC) | | | | | | with symptomatic | | | | | | bradycardia | +--------+ + + + + documented as of this encounter Visit Diagnoses Not on filedocumented in this encounter"
--- OUTSIDE RECORDS SUMMARY | ~2020-04-15 | XMS | Encounter Summary ---
Demographics + + + | Address | [address] | | | [place] [address] | + + + | Home Phone [...] Team Providers + +------+ + | Care Exterminator Termite Name | Role | Phone | + +------+ + | Michael Amanda DO | PCP | | + +------+ + Encounter Details +--------+ + + + + | Date | Type | Department | Care Team | Description | +--------+ + + + + | 02/27/ | Hospital | [facility] | Shelly Carter DO | Chest pain; | | 2013 - | Encounter | [facility] | [address] | Pacemaker; | | | | CLINICAL DECISION | [place] [address] | Mild dehydration | | 02/28/ | | [address] [facility] | [phone] | | | 2013 | | [place], [place] | | | | | | [address] | | | | | | [phone] | | | +--------+ + + + [...] 2252 Date of Service: 02/28/141044 Status: Addendum Resident Care Spec: Dev Montano MD (Physician) Related Notes: Original Note by Dev Montano MD (Physician) filed at 02/28/14 1107 Patient ID: Pina Gay [id number] y.o. 1960 Admit date: 02/27/2014 Discharge [...] - 99 mg/dL Final Testing performed at [address] [address] BUN Date Value Range Status 02/28/2014 15 8 - 25 mg/dL Final Testing performed at [address] [address] CREATININE Date Value Range Status 02/28/2014 0.74 0.70 - 1.30 mg/dL Final Testing performed at [address] [address] BUN/CREAT Date Value Range Status 02/28/2014 20 Final Testing performed at [address] [address] TOTAL PROTEIN Date Value Range Status 02/28/2014 6.1* 6.3 - 8.2 g/dL Final Testing performed at [address] [address] GLOBULIN Date Value Range Status 02/28/2014 2.1 1.3 - 4.9 g/dL Final Testing performed at [address] [address] TBIL Date Value Range Status 02/28/2014 1.4 0.1 - 1.5 mg/dL Final Testing performed at [address] [address] ALT Date Value Range Status 02/28/2014 27 10 - 65 U/L Final Testing performed at [address] [address] AST Date Value Range Status 02/28/2014 31 10 - 45 U/L Final Testing performed at [address] [address] SODIUM Date Value Range Status 02/28/2014 138 135 - 143 mmol/L Final Testing performed at [facility], [address] [place] [address] POTASSIUM Date Value Range Status 02/28/2014 3.4* 3.5 - 4.9 mmol/L Final Testing performed at [facility], [address] [place] [address] CHLORIDE Date Value Range Status 02/28/2014 108 99 - 109 mmol/L Final Testing performed at [address] [address] CO2 Date Value Range Status 02/28/2014 21* 23 - 32 mmol/L Final Testing performed at [facility], [address] [place] [address] ANION GAP AGAP Date Value Range Status 02/28/2014 12 5 - 20 mmol/L Final Testing performed at [facility], [address] [place] [address] Xr Chest Pa And Lateral 02/27/2014 PINA [...] 3-D reconstructi ons were performed using the Notegraphy 3-D software and sent to PACS. Oral Contrast: None I V contrast: 100 mL IsoVue 370 COMPARISON: None. FINDINGS: CHEST: The scout sniper view shows a p acemaker via left [...] No evidence of aneurysm, dissection or stenosis. AQSIM : Mild mixed calcified and soft rg [...] pacemaker, [facility] complaining of chest pain which [...] catheterization recently done by Dr. Singletary in [place] in December 2013 at [facility] which showed minimal occlusive disease. One artery was 25% and another was 15%, per patient. I requested official cardiac catheterization report from [place] and still waiting for it to come. 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 You may get these medications from any pharmacy. amLODIPine 5 MG tablet pantoprazole 40 MG tablet Activity: activity as tolerated Diet: cardiac diet Wound Care: not applicable There are no Patient Instructions on file for this visit. Per Pt None Chkaa Ortiz MD [address] [facility] [id number] In 1 week Ariel Pulido MD [address] [facility] [phone] In 1 week Daljit Singletary MD [address] [facility] [address] [facility] [address] In 1 week Signed: DEV MONTANO 02/28/2014 10:45 AM Addendum:ADDENDUM I just received a cardiac catheterization report from [facility], [place], which was done on December 25, 2013. [...] + + + +---------+ + + | Milton-3 Fatty | CAPS, one capsule by [...] 02/28/141211 Date of Service: 02/28/141210 Status: Signed Resident Care Spec: Bijal Sosa RN (Registered Nurse) Discharge instructions [...] 02/28/1411 Date of Service: 02/28/1411 Status: Signed Resident Care Spec: Mary Wetzel RPH (Pharmacist) Clinical Pharmacy Note: [...] | | | | | | [place] [address] | | | | | | [phone] | | | | | | | | +--------+ + + + + | 05/01/ | Procedure | Cardiology | | | | 2019 | visit | | | | +--------+ + + + + | 05/01/ | Office | Cardiology | Silvia | | | 2019 | Visit | | [address] | | | | | | [place], | | | | | | [place] [address] | | | | | | [phone] | | | | | | | | +--------+ + + + + | 05/21/ | Implant | Cardiology | Daljit Singletary, | Remote Device | | 2020 | Monitor | | [address] [place] | Interrogation | | | | | [facility], | (Primary Dx); | | | | | [place] [address] | Pacemaker; | | | | | [phone] | Sinoatrial node | | | | [...] EXTERNAL | | | | performed at [facility] | | LAB | | | | [address];[place], [place] | | | | | | [address] | | | | + + + [...] | | | | | | ACUTE MO Testing | | | | | | performed at [facility];[address] | | | | | | [address] [facility];[place], [place] | | | | | | [address] | | | | + + + [...] | | | | | [place] [address] | | | | + + + + + + | Red Blood | 4.68Comment: Testing | 4.20 - 5.70 | EXTERNAL | | | Cells | performed at [facility], [address] | M/uL | LAB | | | Counted | [address], | | | | | | [place] [address] | | | | + + + + + + | Hemoglobin | 15.3Comment: Testing | 13.2 - 17.0 | EXTERNAL | | | | performed at [facility], [address] | g/dL | LAB | | | | [address], | | | | | | [place] [address] | | | | + + + + + + | Hematocrit, | 44.2Comment: Testing | 39.0 - 50.0 % | EXTERNAL | | | POC | performed at [facility], [address] | | LAB | | | | [address], | | | | | | [place] [address] | | | | + + + + + + | MCV | 94.5Comment: Testing | 80.0 - 100.0 fl | EXTERNAL | | | | performed at [facility], [address] | | LAB | | | | [address], | | | | | | [place] [address] | | | | + + + + + + | MCH | 32.6Comment: Testing | 27.0 - 34.0 pg | EXTERNAL | | | | performed at [facility], [address] | | LAB | | | | [address], | | | | | | [place] [address] | | | | + + + + + + | MCHC | 34.5Comment: Testing | 32.0 - 35.5 | EXTERNAL | | | | performed at [facility], [address] | g/dL | LAB | | | | [address], | | | | | | [place] [address] | | | | + + + + + + | RDW-CV | 45.5Comment: Testing | 37 - 53 fl | EXTERNAL | | | | performed at [facility], [address] | | LAB | | | | [address], | | | | | | [place] [address] | | | | + + + + + + | Platelet | 156Comment: Testing | 150 - 400 K/uL | EXTERNAL | | | Count | performed at [facility], [address] | | LAB | | | Plasma | [address], | | | | | | [place] [address] | | | | + + + + + + | MPV | 8.8Comment: Testing | fl | EXTERNAL | | | | performed at [facility], [address] | | LAB | | | | [address], | | | | | | [place] [address] | | | | + + + + + + | Differentia | AUTOMATEDComment: | | EXTERNAL | | | l Type | Testing performed at | | LAB | | | | [facility], [address] | | | | | | [place] | | | | | | [address] | | | | + + + + + + | % Segmented | 57.7Comment: Testing | % | EXTERNAL | | | | performed at [facility], [address] | | LAB | | | Neutrophils | [address], | | | | | | [place] [address] | | | | + + + + + + | % | 31.8Comment: Testing | % | EXTERNAL | | | Lymphocytes | performed at [facility], [address] | | LAB | | | | [address], | | | | | | [place] [address] | | | | + + + + + + | % Monocytes | 9.2Comment: Testing | % | EXTERNAL | | | | performed at [facility], [address] | | LAB | | | | [address], | | | | | | [place] [address] | | | | + + + + + + | % | 0.9Comment: Testing | % | EXTERNAL | | | Eosinophils | performed at [facility], [address] | | LAB | | | | [address], | | | | | | [place] [address] | | | | + + + + + + | % Basophils | 0.4Comment: Testing | % | EXTERNAL | | | | performed at [facility], [address] | | LAB | | | [address], | | | | | | [place] [address] | | | | + + + + + + | Absolute | 3.9Comment: Testing | 1.9 - 7.4 K/uL | EXTERNAL | | | Segmented | performed at [facility], [address] | | LAB | | | Neutrophils | [address], | | | | | | [place] [address] | | | | + + + + + + | Absolute | 2.1Comment: Testing | 1.0 - 3.9 K/uL | EXTERNAL | | | Lymphocytes | performed at [facility], [address] | | LAB | | | | [address], | | | | | | [place] [address] | | | | + + + + + + | Absolute | 0.6Comment: Testing | 0 - 0.8 K/uL | EXTERNAL | | | Monocytes | performed at [facility], [address] | | LAB | | | | [address], | | | | | | [place] [address] | | | | + + + + + + | Absolute | 0.1Comment: Testing | 0 - 0.5 K/uL | EXTERNAL | | | Eosinophils | performed at [facility], [address] | | LAB | | | | [address], | | | | | | [place] [address] | | | | + + + + + + | Absolute | 0.0Comment: Testing | 0 - 0.1 K/uL | EXTERNAL | | | Basophils | performed at [facility], [address] | | LAB | | | | [address], | | | | | | [place] [address] | | | | + + + [...] EXTERNAL | | | | performed at [facility], [address] | | LAB | | | | [address], | | | | | | [place] [address] | | | | + + + [...] EXTERNAL | | | | performed at [facility], [address] | | LAB | | | | [address], | | | | | | [place] [address] | | | | + + + [...] EXTERNAL | | | | performed at [facility];[address] | | LAB | | | | [address];[place] | | | | | | [address] | | | | + + + [...] | | | | | [place] [address] | | | | + + + + + + | Triglycerid | 37Comment: Testing | mg/dL | EXTERNAL | | | es | performed at [facility], [address] | | LAB | | | | [address], | | | | | | [place] [address] | | | | + + + + + + | HDL | 35 (L)Comment: Testing | mg/dL | EXTERNAL | | | | performed at [facility], [address] | | LAB | | | | [address], | | | | | | [place] [address] | | | | + + + + + + | LDL, | 67Comment: Testing | mg/dL | EXTERNAL | | | Calculated | performed at [facility], [address] | | LAB | | | | [address], | | | | | | [place] [address] | | | | + + + [...] | | | | | [place] [address] | | | | + + + + + + | K | 3.4 (L)Comment: Testing | 3.5 - 4.9 | EXTERNAL | | | | performed at [facility], [address] | mmol/L | LAB | | | | [address], | | | | | | [place] [address] | | | | + + + + + + | Cl | 108Comment: Testing | 99 - 109 mmol/L | EXTERNAL | | | | performed at [facility], [address] | | LAB | | | | [address], | | | | | | [place] [address] | | | | + + + + + + | CO2 | 21 (L)Comment: Testing | 23 - 32 mmol/L | EXTERNAL | | | | performed at [facility], [address] | | LAB | | | | [address], | | | | | | [place] [address] | | | | + + + + + + | Anion Gap | 12Comment: Testing | 5 - 20 mmol/L | EXTERNAL | | | | performed at [facility], [address] | | LAB | | | | [address], | | | | | | [place] [address] | | | | + + + + + + | Glucose, | 107 (H)Comment: Testing | 65 - 99 mg/dL | EXTERNAL | | | Fasting | performed at [facility], [address] | | LAB | | | | [address], | | | | | | [place] [address] | | | | + + + + + + | BUN | 15Comment: Testing | 8 - 25 mg/dL | EXTERNAL | | | | performed at [facility], [address] | | LAB | | | | [address], | | | | | | [place] [address] | | | | + + + + + + | Creatinine | 0.74Comment: Testing | 0.70 - 1.30 | EXTERNAL | | | | performed at [facility], [address] | mg/dL | LAB | | | | [address], | | | | | | [place] [address] | | | | + + + + + + | BUN/Creatin | 20Comment: Testing | | EXTERNAL | | | ine Ratio | performed at [facility], [address] | | LAB | | | | [address], | | | | | | [place] [address] | | | | + + + + + + | Calcium | 8.9Comment: Testing | 8.5 - 10.2 | EXTERNAL | | | | performed at [facility], [address] | mg/dL | LAB | | | | [address], | | | | | | [place] [address] | | | | + + + + + + | Protein, | 6.1 (L)Comment: Testing | 6.3 - 8.2 g/dL | EXTERNAL | | | Total | performed at [facility], [address] | | LAB | | | | [address], | | | | | | [place] [address] | | | | + + + + + + | Albumin | 4.0Comment: Testing | 3.6 - 5.0 g/dL | EXTERNAL | | | | performed at [facility], [address] | | LAB | | | | [address], | | | | | | [place] [address] | | | | + + + + + + | Globulin | 2.1Comment: Testing | 1.3 - 4.9 g/dL | EXTERNAL | | | | performed at [facility], [address] | | LAB | | | | [address], | | | | | | [place] [address] | | | | + + + + + + | A/G Ratio | 1.9Comment: Testing | 1.0 - 2.4 | EXTERNAL | | | | performed at [facility], [address] | | LAB | | | | [address], | | | | | | [place] [address] | | | | + + + + + + | Bilirubin | 1.4Comment: Testing | 0.1 - 1.5 mg/dL | EXTERNAL | | | Total | performed at [facility], [address] | | LAB | | | | [address], | | | | | | [place], [place] [address] | | | | + + + + + + | ALP, | 46Comment: Testing | 35 - 115 U/L | EXTERNAL | | | External | performed at [facility], [address] | | LAB | | | | [address], | | | | | | [place] [address] | | | | + + + + + + | AST | 31Comment: Testing | 10 - 45 U/L | EXTERNAL | | | | performed at [facility], [address] | | LAB | | | | [address], | | | | | | [place] [address] | | | | + + + + + + | ALT | 27Comment: Testing | 10 - 65 U/L | EXTERNAL | | | | performed at [facility], [address] | | LAB | | | | [address], | | | | | | [place] [address] | | | | + + + [...] | | | | | | at [facility], [address] | | | | | | [address], | | | | | | [place] [address] | | | | + + [...] + + | Historically converted procedure from [facility] environment | EXTERNAL LAB | + + [...] EXTERNAL | | | | performed at [facility];[address] | | LAB | | | | [address];[place], [place] | | | | | | [address] | | | | + + + [...] | | | | | | ACUTE MO Testing | | | | | | performed at [facility];[address] | | | | | | [facility];[place], [place] | | | | | | [address] | | | | + + + [...] EXTERNAL | | | | performed at [facility];[address] | | LAB | | | | [address];[place] | | | | | | [address] | | | | + + + [...] were | | | performed using the Notegraphy 3-D software and sent to PACS. Oral | | | Contrast: None IV contrast: 100 mL IsoVue 370 COMPARISON: None. | | | FINDINGS: CHEST: The scout sniper view shows a pacemaker via left | [...] Conversion - 07/07/2019 10:30 PM PDT [facility] | | CONTRAST02/27/2014 11:21 [...] reconstructions were performed | | using the Notegraphy 3-D software and sent to PACS. Oral Contrast: NoneIV contrast: 100 | | mL IsoVue 370 COMPARISON:None. FINDINGS: CHEST: The scout sniper view shows a pacemaker via | | [...] EXTERNAL | | | | performed at [facility];[address] | | LAB | | | | [address];[place] | | | | | | [address] | | | | + + + + + -+ | Red Blood | 5.19Comment: Testing | 4.20 - 5.70 | EXTERNAL | | | Cells | performed at [facility];[address] | M/uL | LAB | | | Counted | [address];[place] | | | | | | [address] | | | | + + + + + -+ | Hemoglobin | 16.8Comment: Testing | 13.2 - 17.0 | EXTERNAL | | | | performed at [facility];[address] | g/dL | LAB | | | | [address];[place] | | | | | | [address] | | | | + + + + + -+ | Hematocrit, | 49.5Comment: Testing | 39.0 - 50.0 % | EXTERNAL | | | POC | performed at [facility];[address] | | LAB | | | | [address];[place] | | | | | | [address] | | | | + + + + + -+ | MCV | 95.4Comment: Testing | 80.0 - 100.0 fl | EXTERNAL | | | | performed at [facility];[address] | | LAB | | | | [address];[place] | | | | | | [address] | | | | + + + + + -+ | MCH | 32.4Comment: Testing | 27.0 - 34.0 pg | EXTERNAL | | | | performed at [facility];[address] | | LAB | | | | [address];[place] | | | | | | [address] | | | | + + + + + -+ | MCHC | 34.0Comment: Testing | 32.0 - 35.5 | EXTERNAL | | | | performed at [facility];[address] | g/dL | LAB | | | | [address];[place] | | | | | | [address] | | | | + + + + + -+ | RDW-CV | 46.8Comment: Testing | 37 - 53 fl | EXTERNAL | | | | performed at [facility];[address] | | LAB | | | | [address];[place] | | | | | | [address] | | | | + + + + + -+ | Platelet | 179Comment: Testing | 150 - 400 K/uL | EXTERNAL | | | Count | performed at [facility];[address] | | LAB | | | Plasma | [address];[place] | | | | | | [address] | | | | + + + + + -+ | MPV | 8.6Comment: Testing | fl | EXTERNAL | | | | performed at [facility];[address] | | LAB | | | | [address];[place] | | | | | | [address] | | | | + + + + + -+ | Differentia | AUTOMATEDComment: | | EXTERNAL | | | l Type | Testing performed at | | LAB | | | | [facility];[address];[place] [address] | | | | + + + + + -+ | % Segmented | 62.4Comment: Testing | % | EXTERNAL | | | | performed at [facility];[address] | | LAB | | | Neutrophils | [address];[place] | | | | | | [address] | | | | + + + + + -+ | % | 26.3Comment: Testing | % | EXTERNAL | | | Lymphocytes | performed at [facility];[address] | | LAB | | | | [address];[place] | | | | | | [address] | | | | + + + + + -+ | % Monocytes | 10.3Comment: Testing | % | EXTERNAL | | | | performed at [facility];[address] | | LAB | | | | [address];[place] | | | | | | [address] | | | | + + + + + -+ | % | 0.5Comment: Testing | % | EXTERNAL | | | Eosinophils | performed at [facility];[address] | | LAB | | | | [address];[place] | | | | | | [address] | | | | + + + + + -+ | % Basophils | 0.5Comment: Testing | % | EXTERNAL | | | | performed at [facility];[address] | | LAB | | | | [address];[place] | | | | | | [address] | | | | + + + + + -+ | Absolute | 6.3Comment: Testing | 1.9 - 7.4 K/uL | EXTERNAL | | | Segmented | performed at [facility];[address] | | LAB | | | Neutrophils | [address];[place] | | | | | | [address] | | | | + + + + + -+ | Absolute | 2.7Comment: Testing | 1.0 - 3.9 K/uL | EXTERNAL | | | Lymphocytes | performed at [facility];[address] | | LAB | | | | [address];[place] | | | | | | [address] | | | | + + + + + -+ | Absolute | 1.0 (H)Comment: Testing | 0 - 0.8 K/uL | EXTERNAL | | | Monocytes | performed at [facility];[address] | | LAB | | | | [address];[place] | | | | | | [address] | | | | + + + + + -+ | Absolute | 0.0Comment: Testing | 0 - 0.5 K/uL | EXTERNAL | | | Eosinophils | performed at [facility];[address] | | LAB | | | | [address];[place] | | | | | | [address] | | | | + + + + + -+ | Absolute | 0.1Comment: Testing | 0 - 0.1 K/uL | EXTERNAL | | | Basophils | performed at [facility];[address] | | LAB | | | | [address];[place] | | | | | | [address] | | | | + + + + + -+ | Na | 139Comment: Testing | 135 - 143 | EXTERNAL | | | | performed at [facility];[address] | mmol/L | LAB | | | | [address];[place] | | | | | | [address] | | | | + + + + + -+ | K | 3.4 (L)Comment: Testing | 3.5 - 4.9 | EXTERNAL | | | | performed at [facility];[address] | mmol/L | LAB | | | | [address];[place] | | | | | | [address] | | | | + + + + + -+ | Cl | 108Comment: Testing | 99 - 109 mmol/L | EXTERNAL | | | | performed at [facility];[address] | | LAB | | | | [address];[place] | | | | | | [address] | | | | + + + + + -+ | CO2 | 21 (L)Comment: Testing | 23 - 32 mmol/L | EXTERNAL | | | | performed at [facility];[address] | | LAB | | | | [address];[place] | | | | | | [address] | | | | + + + + + -+ | Anion Gap | 14Comment: Testing | 5 - 20 mmol/L | EXTERNAL | | | | performed at [facility];[address] | | LAB | | | | [address];[place] | | | | | | [address] | | | | + + + + + -+ | Glucose, | 124 (H)Comment: Testing | 65 - 99 mg/dL | EXTERNAL | | | Fasting | performed at [facility];[address] | | LAB | | | | [address];[place] | | | | | | [address] | | | | + + + + + -+ | BUN | 20Comment: Testing | 8 - 25 mg/dL | EXTERNAL | | | | performed at [facility];[address] | | LAB | | | | [address];[place] | | | | | | [address] | | | | + + + + + -+ | Creatinine | 0.97Comment: Testing | 0.70 - 1.30 | EXTERNAL | | | | performed at [facility];[address] | mg/dL | LAB | | | | [address];[place] | | | | | | [address] | | | | + + + + + -+ | BUN/Creatin | 21Comment: Testing | | EXTERNAL | | | ine Ratio | performed at [facility];[address] | | LAB | | | | [address];[place] | | | | | | [address] | | | | + + + + + -+ | Calcium | 8.7Comment: Testing | 8.5 - 10.2 | EXTERNAL | | | | performed at [facility];[address] | mg/dL | LAB | | | | [address];[place] | | | | | | [address] | | | | + + + + + -+ | Protein, | 7.6Comment: Testing | 6.3 - 8.2 g/dL | EXTERNAL | | | Total | performed at [facility];[address] | | LAB | | | | [address];[place] | | | | | | [address] | | | | + + + + + -+ | Albumin | 4.2Comment: Testing | 3.6 - 5.0 g/dL | EXTERNAL | | | | performed at [facility];[address] | | LAB | | | | [address];[place] | | | | | | [address] | | | | + + + + + -+ | Globulin | 3.4Comment: Testing | 1.3 - 4.9 g/dL | EXTERNAL | | | | performed [place] [facility] [place] | | [place] | | | | [address];[place] | | | | | | [address] | | | | + + + + + -+ | A/G Ratio | 1.2Comment: Testing | 1.0 - 2.4 | EXTERNAL | | | | performed [place] [facility] [place] | | [place] | | | | [address];[place] | | | | | | [address] | | | | + + + + + -+ | Bilirubin | 1.1Comment: Testing | 0.1 - 1.5 mg/dL | EXTERNAL | | | Total | performed [place] [facility] [place] | | LAB | | | | [address];[place] | | | | | | [address] | | | | + + + + + -+ | ALP, | 77Comment: Testing | 35 - 115 U/L | EXTERNAL | | | External | performed [place] [facility] [place] | | [place] | | | [address];[place] | | | | | | [address] | | | | + + + + + -+ | AST | 35Comment: Testing | 10 - 45 U/L | EXTERNAL | | | | performed at [facility] [place] | | [place] | | | | [address];[place] | | | | | | [address] | | | | + + + + + -+ | ALT | 43Comment: Testing | 10 - 65 U/L | EXTERNAL | | | | performed at [facility] [place] | | LAB | | | | [address];[place] | | | | | | [address] | | | | + + + [...] | | | | | | at [facility] [place] [facility] [place] | | | | | | [address];[place] [id number] | | | | + + + + + -+ | CK, Total | 510 (H)Comment: Testing | 55 - 400 U/L | EXTERNAL | | | | performed at [facility] [place] [facility] [place] | | LAB | | | | [address];[place] | | | | | | [address] | | | | + + + [...] | | | | | performed at [facility] [place] [facility] [place] | | | | | | [address];[place] | | | | | | [address] | | | | + + + + + -+ | aPTT, | 24Comment: Testing | 23 - 32 seconds | EXTERNAL | | | Patient | performed at [facility] [place] | | LAB | | | | [address];[place] | | | | | | [address] | | | | + + + + + -+ | CK-MB | 9.3 (H)Comment: Testing | 0.5 - 3.6 ng/mL | EXTERNAL | | | | performed [place] [facility] [place] | | [place] | | | | [address] [facility];[place], [place] | | | | | | [address] | | | | + + + [...] EXTERNAL | | | | [place] [facility] [place] | uIU/mL | LAB | | | | Wally Hogan;[place] | | | | | | [address] | | | | + + + [...] EXTERNAL | | | | performed at [facility] [place] | | LAB | | | | Wally Hogan;[place], [place] | | | | | | [address] | | | | + + + [...] (500), | | | | | | associate editor TERESE NINA (2) | | | [...]
--- OUTSIDE RECORDS SUMMARY | ~2020-04-15 | XMS | Encounter Summary ---
Demographics + + + | Address | [address] | | | [place] [address] | + + + | Home Phone [...] Providers + +------+ + | Care Cook Ice Cream Name | Role | Phone | + +------+ + PCP | Unavailable | + +------+ + Encounter Details +--------+ + + + + | Date | Type | Department | Care Team | Description | +--------+ + + + + | 12/01/ | Hospital | [facility] | | | | 1997 | Encounter | MED CTR EMERGENCY | | | | | | CENTER [address] | | | | | | [place] | | | | | | [address] | | | | | | [phone] | | | +--------+ + + + [...] | | | | | | [place] [address] | | | | | | [phone] | | | | | | | | +--------+ + + + + | 05/01/ | Procedure | Cardiology | | | | 2019 | visit | | | | +--------+ + + + + | 05/01/ | Office | Cardiology | [place], | | | 2019 | Visit | | PARISA [address] W | | | | | | [place], | | | | | | [place] [address] | | | | | | [phone] | | | | | | | | +--------+ + + + + | 05/21/ | Implant | Cardiology | Daljit Singletary, | Remote Device | 2019 | Monitor | | [address] [place] | Interrogation | | | | | [place], | (Primary Dx); | | | | | [place] [address] | Pacemaker; | | | | | [phone] | Sinoatrial node | | | | | | dysfunction (HCC) | | | | | | with symptomatic | | | | | | bradycardia | +--------+ + + + + documented as of this encounter Visit Diagnoses Not on filedocumented in this encounter"
--- OUTSIDE RECORDS SUMMARY | ~2020-04-15 | XMS | Encounter Summary ---
Demographics + + + | Address | [address] | | | [place] [address] | + + + | Home Phone [...] Providers + +------+ + | Care Potato Seed Cutter Name | Role | Phone | + +------+ + PCP | Unavailable | + +------+ + Encounter Details +--------+ + + + + | Date | Type | Department | Care Team | Description | +--------+ + + + + | 05/13/ | Hospital | [facility] | | | | 2007 | Encounter | MED CTR EMERGENCY | | | | | | [place] [address] | | | | | | [place] | | | | | | [address] | | | | | | [phone] | | | +--------+ + + + [...] | | | | | | [place] [address] | | | | | | [phone] | | | | | | | | +--------+ + + + + | 05/01/ | Procedure | Cardiology | | | | 2019 | visit | | | | +--------+ + + + + | 05/01/ | Office | Cardiology | [place], | | | 2019 | Visit | | PARISA [address] W | | | | | | [place], | | | | | | [place] [address] | | | | | | [phone] | | | | | | | | +--------+ + + + + | 05/21/ | Implant | Cardiology | Daljit Singletary, | Remote Device | 2019 | Monitor | | [address] | Interrogation | | | | | [place], | (Primary Dx); | | | | | [place] [address] | Pacemaker; | | | | | [phone] | Sinoatrial node | | | | | | dysfunction (HCC) | | | | | | with symptomatic | | | | | | bradycardia | +--------+ + + + + documented as of this encounter Visit Diagnoses Not on filedocumented in this encounter"
--- OUTSIDE RECORDS SUMMARY | ~2020-04-15 | XMS | Encounter Summary ---
Demographics + + + | Address | [address] | | | [place] [address] | + + + | Home Phone [...] Providers + +------+ + | Care Electronic Repair Troubleshooter Name | Role | Phone | + [...] [address] | | | | | [address] | [place] | | | | | [phone] | [address] | | | | | | | [...] W | | | | | | [place], | | | | | | [place] [address] | | | | | | [phone] | | | | | | | | +--------+ + + + + | 05/01/ | Procedure | Cardiology | | | | 2019 | visit | | | | +--------+ + + + + | 05/01/ | Office | Cardiology | [place], | | | 2019 | Visit | | PARISA [address] W | | | | | | [place], | | | | | | [place] [address] | | | | | | [phone] | | | | | | | | +--------+ + + + + | 05/21/ | Implant | Cardiology | Daljit Singletary, | Remote Device | 2019 | Monitor | | [address] | Interrogation | | | | | [place], | (Primary Dx); | | | | | [place] [address] | Pacemaker; | | | | | [phone] | Sinoatrial node | | | | | | dysfunction (HCC) | | | | | | with symptomatic | | | | | | bradycardia | +--------+ + + + + documented as of this encounter Visit Diagnoses Not on filedocumented in this encounter"
--- OUTSIDE RECORDS SUMMARY | ~2020-04-15 | XMS | Encounter Summary ---
Demographics + + + | Address | [address] | | | [place] [address] | + + + | Home Phone [...] Team Providers + +------+ + | Care Reconnaissance Crewmember Name | Role | Phone | + +------+ + | Kirk French MD | PCP | | + +------+ + Encounter Details +--------+ + + + + | Date | Type | Department | Care Team | Description | +--------+ + + + + | 03/15/ | Hospital | [facility] | Conversion | | | 2017 | Encounter | [facility] | Transaction, | | | | | [address] | Provider Unknown | | | | | [address] [place] | [phone] | | | | | [address] | | | | | | [phone] | Kirk French | | | | | | MD Brea [address] | | | | | | [address] [place], | | | | | | [place] [address] | | | | | | [phone] | | | | | | | [...] + + + +---------+ + + | [place]-3 Fatty | CAPS, one capsule by | [...] | | | | | | [place] [address] | | | | | | [phone] | | | | | | | | +--------+ + + + + | 05/01/ | Procedure | Cardiology | | | | 2019 | visit | | | | +--------+ + + + + | 05/01/ | Office | Cardiology | Silvia, | | | 2019 | Visit | | [address] | | | | | | [place], | | | | | | [place] [address] | | | | | | [phone] | | | | | | | | +--------+ + + + + | 05/21/ | Implant | Cardiology | Daljit Singletary, | Remote Device | | 2019 | Monitor | | [address] [place] | Interrogation | | | | | [place], | (Primary Dx); | | | | | [place] [address] | Pacemaker; | | | | | [phone] | Sinoatrial node | | | | | | dysfunction (HCC) | | | | | | with symptomatic | | | | | | bradycardia | +--------+ + + + + documented as of this encounter Visit Diagnoses Not on filedocumented in this encounter"
--- OUTSIDE RECORDS SUMMARY | ~2020-04-15 | XMS | Encounter Summary ---
Demographics + + + | Address | [address] | | | [place] [address] | + + + | Home Phone [...] Team Providers + +------+ + | Care Application Defense Manager Name | Role | Phone | + +------+ + PCP | Unavailable | + +------+ + Encounter Details +--------+ + + + + | Date | Type | Department | Care Team | Description | +--------+ + + + + | 10/09/ | [facility] | [facility] | Jonathan, | | | 2008 | Encounter | MED CTR EMERGENCY | Martell Cr MD [address] | | | | | CENTER [address] [place] | [place] | | | | | [place] | [place] [address] | | | | | [address] | [phone] | | | | | [phone] | | | +--------+ + + + [...] W | | | | | | [place], | | | | | | [place] [address] | | | | | | [phone] | | | | | | | | +--------+ + + + + | 05/01/ | Procedure | Cardiology | | | | 2019 | visit | | | | +--------+ + + + + | 05/01/ | Office | Cardiology | Silvia | | | 2019 | Visit | | [address] Vernon [address] | | | | | | [place], | | | | | | [place] [address] | | | | | | [phone] | | | | | | | | +--------+ + + + + | 05/21/ | Implant | Cardiology | Daljit Singletary, | Remote Device | 2019 | Monitor | | MD [address] [place] | Interrogation | | | | | [place], | (Primary Dx); | | | | | [place] [address] | Pacemaker; | | | | | [phone] | Sinoatrial node | | | | | | dysfunction (HCC) | | | | | | with symptomatic | | | | | | bradycardia | +--------+ + + + + documented as of this encounter Visit Diagnoses Not on filedocumented in this encounter"
--- OUTSIDE RECORDS SUMMARY | ~2020-04-15 | XMS | Encounter Summary ---
Demographics + + + | Address | [address] | | | [place] [address] | + + + | Home Phone [...] Team Providers + +------+ + | Care Trumpet Player Name | Role | Phone | [...] + + | 06/18/ | Emergency | [facility] | Dom Graham, | Cervical pain (neck) | | 2013 | | MED CTR EMERGENCY | MD [address] | (Primary Dx); | | | | CENTER [address] | [place] | Paresthesia and pain | | | | [place], [place] | [address] | of both upper | | | | [address] | | extremities | | | | [phone] | | | +--------+ + + + [...] cannot be sent through Care Everywhere.PARAESTHESIAS ( ALBANIAN)NECK SPRAIN/STRAIN (ALBANIAN)documented in this encounter Medications at Time of [...] + + +---------+ + + | [place]-3 Fatty | CAPS, one capsule by | [...] W | | | | | | [place], | | | | | | [place] [address] | | | | | | [phone] | | | | | | | | +--------+ + + + + | 05/01/ | Procedure | Cardiology | | | | 2019 | visit | | | | +--------+ + + + + | 05/01/ | Office | Cardiology | Silvia, | | | 2019 | Visit | | PARISA Vernon [address] | | | | | | [place], | | | | | | [place] [address] | | | | | | [phone] | | | | | | | | +--------+ + + + + | 05/21/ | Implant | Cardiology | Daljit Singletary, | Remote Device | | 2019 | Monitor | | MD [address] [place] | Interrogation | | | | | [place], | (Primary Dx); | | | | | [place] [address] | Pacemaker; | | | | | [phone] | Sinoatrial node | | | | [...] + | MISCELLANEOUS LAB | | | [phone] | + +---------+ + + | MISCELANIOUS LAB | | | [phone] | + +---------+ + + documented in this encounter Visit Diagnoses + + | Diagnosis | + + | Cervical pain (neck) - Primary Cervicalgia | + + | Paresthesia and pain of both upper extremities Disturbance of skin sensation | + + documented in this encounter
--- OUTSIDE RECORDS SUMMARY | ~2020-04-15 | XMS | Encounter Summary ---
Demographics + + + | Address | [address] | | | [place] [address] | + + + | Home Phone [...] Team Providers + +------+ + | Care Monotypist Name | Role | Phone | + [...] | | | | stenosis | L, FACTORY WORKER [address] | | | | | | Procedures | [address] | | | | | | [address] | [address] | | | | | | Myelography | [place], [place] | | | | | | Cervical | [address] | | | | | | Spine | Phone: | | | | | | | [phone] | | | | | | | Fax: | | | | | | | [phone] | | +--------+--------+ + + + + [...] | 06/04/ | Hospital | [facility] | Sariah, | Cervical spinal | | 2016 | Encounter | MED CTR [address] | [place] FACTORY WORKER [address] | stenosis | | | | [place], | [address] | | | | | [place] [address] | [place] [address] | | | | | [phone] | [phone] | | | | | | | [...] + + + +---------+ + + | [place]-3 Fatty | CAPS, one capsule by | [...] | | | | | | [place] [address] | | | | | | [phone] | | | | | | | | +--------+ + + + + | 05/01/ | Procedure | Cardiology | | | | 2019 | visit | | | | +--------+ + + + + | 05/01/ | Office | Cardiology | Silvia, | | | 2019 | Visit | | PARISA [address] | | | | | | [place], | | | | | | [place] [address] | | | | | | [phone] | | | | | | | | +--------+ + + + + | 05/21/ | Implant | Cardiology | Daljit Singletary, | Remote Device | | 2019 | Monitor | | [address] [place] | Interrogation | | | | | [place], | (Primary Dx); | | | | | [place] [address] | Pacemaker; | | | | | [phone] | Sinoatrial node | | | | [...]
--- OUTSIDE RECORDS SUMMARY | ~2020-04-15 | XMS | Encounter Summary ---
Demographics + + + | Address | [address] | | | [place] [address] | + + + | Home Phone [...] Providers + +------+ + | Care Hand Etcher Name | Role | Phone | [...] [place] | | | | | | [address] | [address] Phone: | | | | | | Phone: | [phone] | | | | | | [phone] | Fax: | | | | | | Fax: | [phone] | | | | | | [phone] | | +--------+ + + + + + Reason for Visit + + + | Reason | Comments | + + + | Medicare Wellness | | + + + Encounter Details +--------+---------+ + + + | Date | Type | Department | Care Team | Description | +--------+---------+ + + + | 07/25/ | Office | [facility] | Michael Amanda, | Preventative health | | 2014 | Visit | [facility] [place] | DO [address] | care (Primary Dx); | | | | [address] | [place] | Cannabis abuse, | | | | [place] | [address] | daily use; Urinary | | | | [address] | | frequency; | | | | [phone] | | Incontinence; | | | | [...] needed for Chest pain. [address]-3 Fatty Acids (SALMON OIL-1000 PO) CAPS, one [...] as Nurse Practitioner (Cardiology) FENG Chou (Physician Golf Shoe Spike Assembler) Current Medicare Suppliers: [email or web address] - [place], [place] - [address] [place] [address] [facility] - [place], [place] - [address] [place] [address] HEALTH RISK ASSESSMENT: : The patient or [...] following health maintenance items are reviewed in [facility] and correct as of today: [...] no kevin in the usual sections in [place]. documented in this en counter Plan of Treatment +--------+ + + + + | Date | Type | Specialty | Care Team | Description | +--------+ + + + + | 05/01/ | Appointment | Radiology | Silvia, | | | 2019 | | | [address] | | | | | | [place], | | | | | | [place] [address] | | | | | | [phone] | | | | | | | | +--------+ + + + + | 05/01/ | Procedure | Cardiology | | | | 2019 | visit | | | | +--------+ + + + + | 05/01/ | Office | Cardiology | Silvia, | | | 2019 | Visit | | [address] | | | | | | [place], | | | | | | [place] [address] | | | | | | [phone] | | | | | | | | +--------+ + + + + | 05/21/ | Implant | Cardiology | Daljit Singletary, | Remote Device | 2019 | Monitor | | MD [address] [place] | Interrogation | | | | | [place], | (Primary Dx); | | | | | [place] [address] | Pacemaker; | | | | | [phone] | Sinoatrial node | | | | [...] Primary Routine general medical examination at a [facility] | | care facility | + + [...]
--- OUTSIDE RECORDS SUMMARY | ~2020-04-15 | XMS | Encounter Summary ---
Demographics + + + | Address | [address] | | | [place] [address] | + + + | Home Phone [...] Providers + +------+ + | Care Button Attaching Machine Operator Name | Role | Phone [...] | CARDIOLOGY [address] | [address] [place] | reprogramming/check | | | | [place], | [place], | DO NOT DELETE | | | | [place] [address] | [place] [address] | (Primary Dx); | | | | [phone] | [phone] | Sinoatrial node | | | | [...] | | | | | | [place] [address] | | | | | | [phone] | | | | | | | | +--------+ + + + + | 05/01/ | Procedure | Cardiology | | | | 2019 | visit | | | | +--------+ + + + + | 05/01/ | Office | Cardiology | Silvia | | | 2019 | Visit | | PARISA [place] [address] | | | | | | [place], | | | | | | [place] [address] | | | | | | [phone] | | | | | | | | +--------+ + + + + | 05/21/ | Implant | Cardiology | Daljit Singletary, | Remote Device | | 2019 | Monitor | | [address] [place] | Interrogation | | | | | [place], | (Primary Dx); | | | | | [place] [address] | Pacemaker; | | | | | [phone] | Sinoatrial node | | | | [...]
--- OUTSIDE RECORDS SUMMARY | ~2020-04-15 | XMS | Encounter Summary ---
Demographics + + + | Address | [address] | | | [place] [address] | + + + | Home Phone [...] Providers + +------+ + | Care Labor Relations Consultant Name | Role | Phone | [...] 2019 | | GASTROENTEROLOGY | [address] [place], [place] | (stomach cramps and | | | | [address] [place] | [address] [place], [place] | liquid stool) | | | | [address] [place], [place] | [address] | | | | | [address] | | | | | | [phone] | | | +--------+ + + + [...] | | | | | | [place] [address] | | | | | | [phone] | | | | | | | | +--------+ + + + + | 05/01/ | Procedure | Cardiology | | | | 2019 | visit | | | | +--------+ + + + + | 05/01/ | Office | Cardiology | Silvia, | | | 2019 | Visit | | [place]ISA [place] W | | | | | | [place], | | | | | | [place] [address] | | | | | | [phone] | | | | | | | | +--------+ + + + + | 05/21/ | Implant | Cardiology | Daljit Singletary, | Remote Device | | 2019 | Monitor | | [address] [place] | Interrogation | | | | | [place], | (Primary Dx); | | | | | [place] [address] | Pacemaker; | | | | | [phone] | Sinoatrial node | | | | [...]
--- OUTSIDE RECORDS SUMMARY | ~2020-04-15 | XMS | Encounter Summary ---
Demographics + + + | Address | [address] | | | [place] [address] | + + + | Home Phone [...] Providers + +------+ + | Care Network Control Supervisor Name | Role | Phone | [...] | CARDIOLOGY [address] | [address] [place] | Interrogation | | | | [place], | [place], | (Primary Dx); | | | | [place] [address] | [place] [address] | Pacemaker; | | | | [phone] | Sinoatrial node | | | | [...] | | | | | | [place] [address] | | | | | | [phone] | | | | | | | | +--------+ + + + + | 05/01/ | Procedure | Cardiology | | | | 2019 | visit | | | | +--------+ + + + + | 05/01/ | Office | Cardiology | Silvia, | | | 2019 | Visit | | [address]ISA [address] W | | | | | | [place], | | | | | | [place] [address] | | | | | | [phone] | | | | | | | | +--------+ + + + + | 05/21/ | Implant | Cardiology | Daljit Singletary, | Remote Device | | 2019 | Monitor | | [address] [place] | Interrogation | | | | | [place], | (Primary Dx); | | | | | [place] [address] | Pacemaker; | | | | | [phone] | Sinoatrial node | | | | [...] remote PDF scanned into | | | [facility] for remote interrogation results. Data [...] + + | Performing | Address | City/State[facility] | Phone Number | | Organization [...]
--- OUTSIDE RECORDS SUMMARY | ~2020-04-15 | XMS | Encounter Summary ---
Demographics + + + | Address | [address] | | | [place] [address] | + + + | Home Phone [...] Providers + +------+ + | Care Warp Tension Tester Name | Role | Phone | [...] + | 07/12/ | Office | [facility] | Michael Amanda, | Preventative health | | 2013 | Visit | [facility]IC[facility] [place] | DO [address] | care (Primary Dx); | | | | [address] | [place], [place] | Prostate cancer | | | | [place], [place] | [address] | screening; | | | | [address] | | Hypercholesterolemia | | | | [phone] | | ; Hypertension; | | | [...] clear cause was found. He has seen medical screener and has a rechec k plan. Possible [...] | | | | | | [place] [address] | | | | | | [phone] | | | | | | | | +--------+ + + + + | 05/01/ | Procedure | Cardiology | | | 2019 | visit | | | | +--------+ + + + + | 05/01/ | Office | Cardiology | Silvia, | | | 2019 | Visit | | PARISA [address] W | | | | | | [place], | | | | | | [place] [address] | | | | | | [phone] | | | | | | | | +--------+ + + + + | 05/21/ | Implant | Cardiology | Daljit Singletary, | Remote Device | 2019 | Monitor | | [address] [place] | Interrogation | | | | | [place], | (Primary Dx); | | | | | [place] [address] | Pacemaker; | | | | | [phone] | Sinoatrial node | | | | [...]
--- OUTSIDE RECORDS SUMMARY | ~2020-04-15 | XMS | Encounter Summary ---
Demographics + + + | Address | [address] | | | [place] [address] | + + + | Home Phone [...] Team Providers + +------+ + | Care Core Feeder Name | Role | Phone | [...] | Ascending | [place]via, | [address] | | | | | aortic | Janeen, SALON DESIGNER | [place], | | | | | aneurysm | [address] | [place] | | | | | ([facility]) | [place] | [address] | | | | | Procedures | [place], | Phone: | | | | | ECHO | [place] | [phone] | | | | | Complete | [address] | Fax: | | | | | | Phone: | [phone] | | | | | | [phone] | | | | | | | Fax: | | | | | | | [phone] | | + +--------+ + + + [...] | MD [address] | [address] | | | | | hypertension | [address] | [place], | | | | | Sick sinus | [address] | [place] | | | | | syndrome | [place], [place] | [address] | | | | | (HCC) | [address] | Phone: | | | | | Ventricular | Phone: | [phone] | | | | | premature | [phone] | Fax: | | | | | depolarizati | Fax: | [phone] | | | | | on | [phone] | | | | | | Tachycardia, | | | | | | | unspecified | | | | | | | | | | | | | | Atherosclero | | | | | | | tic heart | | | | | | | disease of | | | | | | | soboba | | | | | | | [...] + + | 01/01/ | Office | [facility] | [place], | Ascending thoracic | | 2020 | Visit | CARDIOLOGY [address] | PARISA Vernon [address] | aortic aneurysm | | | | [place], | [place], | (HCC) (Primary Dx); | | | | [place] [address] | [place] [address] | Coronary artery | | | | [phone] | [phone] | disease involving | | | | | | soboba coronary | | | | | | artery of soboba | | | | | | heart [...] encounter Patient Instructions Patient Instructions Vidhi Gillespie, Director Of Occupational Health - 01/01/2020 7:30 AM PST1. Esau nue with current effective medical regiment. 2. He [...] of critical coronary artery disea se involving soboba coronary artery of soboba heart without angina pectoris, essential hyper tension, [...] for weight loss, he was defer to [facility], per the medical centers to have some sort of a patient [...] Preventative health care Coronary artery disease involving soboba coronary artery of soboba heart without angina pectoris Cannabis abuse, daily [...] ONE TABLET UNDER THE TONGUE EVERY 5 [place] NUTES NEEDED FOR CHEST PAIN 250 tablet 0 nortriptyline (PAMELOR) 25 mg capsule Take 25 mg by mouth. [place]-3 Fatty Acids (SALMON OIL-1000 PO) CAPS, one capsule by mouth daily twice daily ondansetron (ZOFRAN ODT) 4 mg disintegrating tablet Take 4 mg by mouth every 8 hours as needed for Nausea. ondansetron (ZOFRAN) 4 mg tablet Take 4 mg by mouth. [facility] T[facility]CH [facility] Check glucose as needed for hypoglycemia 100 [...] No significant change was found Confirmed by GURJIT WINKLER, SYDNI ([id number]) on 06/06/2019 3:43:10 PM LAB RESULTS reviewed during visit today primarily from [facility]: LIPID Lab Results Component Value Date [...] BNP 48 06/02/2019 I reviewed records from [facility] for office visit on 06/06/2019 wh ich is summarized in the HPI. RESULTS- I reviewed reports from [facility]: No results found. Above data and testing is reviewed this visit; testing below is historical data unless othe rwise specified. ASSESSMENT: 1. Non-critical Coronary artery disease involving soboba coronary artery of soboba heart [facility] angina pectoris: A.Normal exercise sestamibi stress [...] that he relates it to his anxiety. Haleigh rodarte is on a medical regimen with aspirin, ARB, beta-edvin and statin. There are no signs or symptoms of overt congestive heart failure, and his physical exam shows no significant fluid retention. He is in class I- No symptoms; no limitations of activities of the [place] [employer] functional class. Heart failure [...] performed by Dr Juan Diego Gambino at [facility] on 01/30/2013.Patient had spontaneous PVC'sfr [...] to go back in 3 days to [place] for an attempt of ablation under general [...] advised to having his MRI done in [place] at [facility] which has a repeat MRI protocol for [...] advised to having his MRI done in [place] at [facility] which has a repeat MRI protocol for such situations. Patient also will need echocardiogram for his next appointmen t to evaluate his ascending aorta Vidhi Clemente, Director Of Occupational Health am acting as a scribe on behalf of, and in the prese nce of PARISA Lomas. - Vidhi Gillespie, Director Of Occupational Health 01/01/2020 5:29 PM I, PARISA Lomas, personally performed the services described in this documentati on, as scribed in my presence and it is both accurate and complete. -PARISA Lomas 01/01/2020 Portions of this chart may have been created with [employer] voice recognition software. Occasi onal wrong-word or [...] | | | | | | [place] [address] | | | | | | [phone] | | | | | | | | +--------+ + + + + | 05/01/ | Procedure | Cardiology | | | | 2019 | visit | | | | +--------+ + + + + | 05/01/ | Office | Cardiology | Silvia, | | | 2019 | Visit | | PARISA Vernon [address] | | | | | | [place], | | | | | | [place] [address] | | | | | | [phone] | | | | | | | | +--------+ + + + + | 05/21/ | Implant | Cardiology | Sydni Singletary, | Remote Device | | 2019 | Monitor | | [address] [place] | Interrogation | | | | | [place], | (Primary Dx); | | | | | [place] [address] | Pacemaker; | | | | | [phone] | Sinoatrial node | | | | | | dysfunction (HCC) | | | | | | with symptomatic | | | | | | bradycardia | +--------+ + + + + + + +--------+ + + | Name | Type | Priori | Associated Diagnoses | Order Schedule | | | | ty | | | + + +--------+ + + | ECHO Complete | Echocardiog | Routin | Ascending thoracic | Expected: | | | gabriela | e | aortic aneurysm | 01/01/2020, Expires: | | | | | (HCC) | 01/01/2021 | + + +--------+ + + documented as of this encounter Visit Diagnoses + + | Diagnosis | + + | Ascending thoracic aortic aneurysm (HCC) - Primary Thoracic aneurysm without mention | | of rupture | + + | Coronary artery disease involving soboba coronary artery of soboba heart without | | angina pectoris | [...]
--- OUTSIDE RECORDS SUMMARY | ~2020-04-15 | XMS | Encounter Summary ---
Demographics + + + | Address | [address] | | | [place] [address] | + + + | Home Phone [...] Team Providers + +------+ + | Care Desktop Publishing Associate Name | Role | Phone | [...] | disease involving | | | | [place], | [place], | nikolai coronary | | | | [place] [address] | [place] [address] | artery of nikolai | | | | [phone] | [phone] | heart without angina | | | [...] W | | | | | | [place], | | | | | | [place] [address] | | | | | | [phone] | | | | | | | | +--------+ + + + + | 05/01/ | Procedure | Cardiology | | | | 2019 | visit | | | | +--------+ + + + + | 05/01/ | Office | Cardiology | Silvia, | | | 2019 | Visit | | PARISA Vernon [address] | | | | | | [place], | | | | | | [place] [address] | | | | | | [phone] | | | | | | | | +--------+ + + + + | 05/21/ | Implant | Cardiology | AnshujohnsoncherelleShaistapawanotto, | Remote Device | | 2019 | Monitor | | MD [address] [facility] | Interrogation | | | | | [place], | (Primary Dx); | | | | | [place] [address] | Pacemaker; | | | | | [phone] | Sinoatrial node | | | | [...] MD | | | | | | ([id number]) on 06/23/2016 | | | | | [...] + + | Coronary artery disease involving nikolai coronary artery of nikolai heart without | | angina pectoris - Primary | + + | Essential hypertension with goal blood pressure less than 130/80 | + + documented in this encounter"
--- OUTSIDE RECORDS SUMMARY | ~2020-04-15 | XMS | Encounter Summary ---
Demographics + + + | Address | [address] | | | [place] [address] | + + + | Home Phone [...] Providers + +------+ + | Care Market Intelligence Consultant Name | Role | Phone | + +------+ + | Kirk French MD | PCP | | + +------+ + Encounter Details +--------+ + + + + | Date | Type | Department | Care Team | Description | +--------+ + + + + | 08/29/ | Hospital | [facility] | [place] | DVT (deep venous | | 2015 | Encounter | MED CTR ULTRASOUND | PARISA [place] [address] | thrombosis), | | | | [address] [place] | [place], | bilateral (HCC) | | | | [place], [place] | [place] [address] | | | | | [address] | [phone] | | | | | [phone] | | | +--------+ + + + [...] + + + +---------+ + + | [place]asas-3 Fatty | CAPS, one capsule by | [...] | | | | | | | #[id number], exp 07/2016 | | | | | [...] | | | | | | [place], | | | | | | [place] [address] | | | | | | [phone] | | | | | | | | +--------+ + + + + | 05/01/ | Procedure | Cardiology | | | | 2019 | visit | | | | +--------+ + + + + | 05/01/ | Office | Cardiology | Silvia, | | | 2019 | Visit | | PARISA Vernon [address] | | | | | | [place], | | | | | | [place] [address] | | | | | | [phone] | | | | | | | | +--------+ + + + + | 05/21/ | Implant | Cardiology | Daljit Singletary, | Remote Device | 2019 | Monitor | | MD [address] [place] | Interrogation | | | | | [place], | (Primary Dx); | | | | | [place] [address] | Pacemaker; | | | | | [phone] | Sinoatrial node | | | | [...] HISTORY: DVT. COMPARISON: None. TECHNIQUE: Compression | [facility] | | sonography was performed from the groin through the popliteal fossa | [facility] | | in both lower extremities.. Grayscale [...] conveyed to the ordering provider, by the photo mask inspector, | | | immediately following the exam. [...] to the ordering provider, by the | |photo mask inspector, immediately following the exam. | | | | | |Dictated and Signed by: Emmanuel Gibbons MD | | Electronically signed: 08/29/2015 3:25 PM | + + + + + + + | Performing | Address | City/State/Zipcode | Phone Number | | Organization | | | | + + + + + | [facility] | [address] | [place] | [phone] | | [facility] | | [address] | | | - IMAGING | | | | + + + + + documented in this encounter Visit Diagnoses + + | Diagnosis | + + | DVT (deep venous thrombosis), bilateral | + + documented in this encounter"
--- OUTSIDE RECORDS SUMMARY | ~2020-04-15 | XMS | Encounter Summary ---
Demographics + + + | Address | [address] | | | [place] [address] | + + + | Home Phone [...] Team Providers + +------+ + | Care Plywood Factory Worker Name | Role | Phone | [...] | CARDIOLOGY [address] | MD [address] [place] | | | | | [place], | [place], | | | | | [place] [address] | [place] [address] | | | | | [phone] | [phone] | | | | | | | [...] | | | | | | [place] [address] | | | | | | [phone] | | | | | | | | +--------+ + + + + | 05/01/ | Procedure | Cardiology | | | | 2019 | visit | | | | +--------+ + + + + | 05/01/ | Office | Cardiology | [place]via, | | | 2019 | Visit | | PARISA Vernon [address] | | | | | | [place], | | | | | | [place] [address] | | | | | | [phone] | | | | | | | | +--------+ + + + + | 05/21/ | Implant | Cardiology | Daljit Singletary, | Remote Device | 2019 | Monitor | | [address] [facility] | Interrogation | | | | | [place], | (Primary Dx); | | | | | [place] [address] | Pacemaker; | | | | | [phone] | Sinoatrial node | | | | | | dysfunction (HCC) | | | | | | with symptomatic | | | | | | bradycardia | +--------+ + + + + documented as of this encounter Visit Diagnoses Not on filedocumented in this encounter"
--- OUTSIDE RECORDS SUMMARY | ~2020-04-15 | XMS | Encounter Summary ---
Demographics + + + | Address | [address] | | | [place] [address] | + + + | Home Phone [...] Team Providers + +------+ + | Care Post Office Manager Name | Role | Phone | + +------+ + PCP | Unavailable | + +------+ + Encounter Details +--------+ + + + + | Date | Type | Department | Care Team | Description | +--------+ + + + + | 06/17/ | Hospital | [facility] | | | | 2007 | Encounter | MED CTR EMERGENCY | | | | | | [place] [address] | | | | | | [place] | | | | | | [address] | | | | | | [phone] | | | +--------+ + + + [...] | | | | | | [place] [address] | | | | | | [phone] | | | | | | | [...] | | | | | | [place] [address] | | | | | | [phone] | | | | | | | | +--------+ + + + + | 05/21/ | Implant | Cardiology | Daljit Singletary, | Remote Device | 2019 | Monitor | | [address] | Interrogation | | | | | [place], | (Primary Dx); | | | | | [place] [address] | Pacemaker; | | | | | [phone] | Sinoatrial node | | | | | | dysfunction (HCC) | | | | | | with symptomatic | | | | | | bradycardia | +--------+ + + + + documented as of this encounter Visit Diagnoses Not on filedocumented in this encounter"
--- OUTSIDE RECORDS SUMMARY | ~2020-04-15 | XMS | Encounter Summary ---
Demographics + + + | Address | [address] [place] [address] [address] | | | [place] [address] | + + + | Home Phone [...] + + + | Author | [facility] | + + + | Organization | [facility] | + + + | Address | Unknown | + + + | Phone | Unavailable | + + + Support + + + + + | Name | Relationship | Address | Phone | + + + + + | Rachel Valencia | ELIEZER | [place] | | | | | [address] | | + + + + + Care Team Providers + +------+ + | Care Exotic Dancer Name | Role | Phone | + [...] | | [address] | [facility] [place] | | | | | Mailcode: [place] | [address] | | | | | for Health and | [phone] | | | | | [facility] | | | | | | [place], [place] | | | | | | [address] | | | | | | [phone] | | | +--------+ + + + [...]
--- OUTSIDE RECORDS SUMMARY | ~2020-04-15 | XMS | Encounter Summary ---
Demographics + + + | Address | [address] | | | [place] [address] | + + + | Home Phone [...] Providers + +------+ + | Care Sample Patternmaker Name | Role | Phone | + [...] 2019 | | GASTROENTEROLOGY | [address], [place] | | | | | [address] [place] | [address] [place], [place] | | | | | [address] [place], [place] | [address] | | | | | [address] | | | | | | [phone] | | | +--------+--------+ + + + [...] | | | | | | [place] [address] | | | | | | [phone] | | | | | | | | +--------+ + + + + | 05/01/ | Procedure | Cardiology | | | | 2019 | visit | | | | +--------+ + + + + | 05/01/ | Office | Cardiology | [place], | | | 2019 | Visit | | PARISA Vernon [address] | | | | | | [place], | | | | | | [place] [address] | | | | | | [phone] | | | | | | | | +--------+ + + + + | 05/21/ | Implant | Cardiology | Daljit Singletary, | Remote Device | 2019 | Monitor | | [facility] | Interrogation | | | | | [place], | (Primary Dx); | | | | | [place] [address] | Pacemaker; | | | | | [phone] | Sinoatrial node | | | | | | dysfunction (HCC) | | | | | | with symptomatic | | | | | | bradycardia | +--------+ + + + + documented as of this encounter Visit Diagnoses Not on filedocumented in this encounter"
--- OUTSIDE RECORDS SUMMARY | ~2020-04-15 | XMS | Encounter Summary ---
Demographics + + + | Address | [address] | | | [place] [address] | + + + | Home Phone [...] Team Providers + +------+ + | Care Channel Process Supervisor Name | Role | Phone | [...] 2019 | | GASTROENTEROLOGY | [address], [place] | | | | | [address] [place] | [address] [place], [place] | | | | | [address] [place], [place] | [address] | | | | | [address] | | | | | | [phone] | | | +--------+ + + + [...] [place], | | | | | | [place] [address] | | | | | | [phone] | | | | | | | | +--------+ + + + + | 05/01/ | Procedure | Cardiology | | | | 2020 | visit | | | | +--------+ + + + + | 06/10/ | Office | Cardiology | [place], | | | 2019 | Visit | | [place] [address] | | | | | | [place], | | | | | | [place] [address] | | | | | | [phone] | | | | | | | | +--------+ + + + + | 05/21/ | Implant | Cardiology | Daljit Singletary, | Remote Device | 2019 | Monitor | | [address] | Interrogation | | | | | [place], | (Primary Dx); | | | | | [place] [address] | Pacemaker; | | | | | [phone] | Sinoatrial node | | | | | | dysfunction (HCC) | | | | | | with symptomatic | | | | | | bradycardia | +--------+ + + + + documented as of this encounter Visit Diagnoses Not on filedocumented in this encounter"
--- OUTSIDE RECORDS SUMMARY | ~2020-04-15 | XMS | Encounter Summary ---
Demographics + + + | Address | [address] | | | [place] [address] | + + + | Home Phone [...] Team Providers + +------+ + | Care Voip Technician Name | Role | Phone | [...] | CARDIOLOGY [address] | MD [address] [place] | | | | | [place], | [place], | | | | | [place] [address] | [place] [address] | | | | | [phone] | [phone] | | | | | | | [...] | | | | | | [place] [address] | | | | | | [phone] | | | | | | | [...] | | | | | | [place] [address] | | | | | | [phone] | | | | | | | | +--------+ + + + + | 06/30/ | Implant | Cardiology | Daljit Singletary, | Remote Device | | 2019 | Monitor | | [facility] | Interrogation | | | | | [place], | (Primary Dx); | | | | | [place] [address] | Pacemaker; | | | | | [phone] | Sinoatrial node | | | | | | dysfunction (HCC) | | | | | | with symptomatic | | | | | | bradycardia | +--------+ + + + + documented as of this encounter Visit Diagnoses Not on filedocumented in this encounter"
--- OUTSIDE RECORDS SUMMARY | ~2020-04-15 | XMS | Encounter Summary ---
Demographics + + + | Address | [address] | | | [place] [address] | + + + | Home Phone [...] Team Providers + +------+ + | Care Sailing Officer Name | Role | Phone | + +------+ + PCP | Unavailable | + +------+ + Encounter Details +--------+ + + + + | Date | Type | Department | Care Team | Description | +--------+ + + + + | 06/14/ | [facility] | [facility] | Kennethshaistatesha Shaistakenneth, | | | 2008 - | Encounter | MED CTR MP INTRA OP | [address] | | | | | [address] | [address] [place], | | | 06/15/ | | [place] | [place] [address] | | | 2008 | | [address] | [phone] | | | | | [phone] | | | +--------+ + + + [...] | | | | | | [place] [address] | | | | | | [phone] | | | | | | | [...] | | | | | | [place] [address] | | | | | | [phone] | | | | | | | | +--------+ + + + + | 05/21/ | Implant | Cardiology | Daljit Singletary, | Remote Device | | 2019 | Monitor | | MD [address] | Interrogation | | | | | [place], | (Primary Dx); | | | | | [place] [address] | Pacemaker; | | | | | [phone] | Sinoatrial node | | | | | | dysfunction (HCC) | | | | | | with symptomatic | | | | | | bradycardia | +--------+ + + + + documented as of this encounter Visit Diagnoses Not on filedocumented in this encounter"
--- OUTSIDE RECORDS SUMMARY | ~2020-04-15 | XMS | Encounter Summary ---
Demographics + + + | Address | [address] | | | [place] [address] | + + + | Home Phone [...] Team Providers + +------+ + | Care Vice President Process Name | Role | Phone | + [...] | | CARDIOLOGY [address] | Janeen, INFRASTRUCTURE ARCHITECT [address] | reading) | | | | [place], | [place], | | | | | [place] [address] | [place] [address] | | | | | [phone] | [phone] | | | | | | | [...] | | | | | | [place], | | | | | | [place] [address] | | | | | | [phone] | | | | | | | | +--------+ + + + + | 05/01/ | Procedure | Cardiology | | | | 2019 | visit | | | | +--------+ + + + + | 05/01/ | Office | Cardiology | Silvia, | | | 2019 | Visit | | [address] | | | | | | [place], | | | | | | [place] [address] | | | | | | [phone] | | | | | | | | +--------+ + + + + | 05/21/ | Implant | Cardiology | Daljit Singletary, | Remote Device | | 2019 | Monitor | | [facility] | Interrogation | | | | | [place], | (Primary Dx); | | | | | [place] [address] | Pacemaker; | | | | | [phone] | Sinoatrial node | | | | | | dysfunction (HCC) | | | | | | with symptomatic | | | | | | bradycardia | +--------+ + + + + documented as of this encounter Visit Diagnoses Not on filedocumented in this encounter"
--- OUTSIDE RECORDS SUMMARY | ~2020-04-15 | XMS | Encounter Summary ---
Demographics + + + | Address | [address] | | | [place] [address] | + + + | Home Phone [...] Providers + +------+ + | Care Case Work Aide Name | Role | Phone | [...] + | 06/02/ | Telephone | [facility] | Daljit Singletary, | Other (symptoms) | | 2019 | | CARDIOLOGY [address] | MD [address] [place] | | | | | [place], | [place], | | | | | [place] [address] | [place] [address] | | | | | [phone] | [phone] | | | | | | | [...] | | | | | | [place] [address] | | | | | | [phone] | | | | | | | | +--------+ + + + + | 05/01/ | Procedure | Cardiology | | | | 2019 | visit | | | | +--------+ + + + + | 05/01/ | Office | Cardiology | Silvia, | | | 2019 | Visit | | [address] | | | | | | [place], | | | | | | [place] [address] | | | | | | [phone] | | | | | | | | +--------+ + + + + | 05/21/ | Implant | Cardiology | Daljit Singletary, | Remote Device | 2019 | Monitor | | MD [address] | Interrogation | | | | | [place], | (Primary Dx); | | | | | [place] [address] | Pacemaker; | | | | | [phone] | Sinoatrial node | | | | | | dysfunction (HCC) | | | | | | with symptomatic | | | | | | bradycardia | +--------+ + + + + documented as of this encounter Visit Diagnoses Not on filedocumented in this encounter"
--- OUTSIDE RECORDS SUMMARY | ~2020-04-15 | XMS | Encounter Summary ---
Demographics + + + | Address | [address] | | | [place] [address] | + + + | Home Phone [...] Providers + +------+ + | Care Consulting Database Administrator Name | Role | Phone | [...] | | GASTROENTEROLOGY | [address] [place], [place] | Recommendations | | | | [address] [place] | [address] [place], [place] | | | | | 210 [place], [place] | [address] | | | | | [address] | | | | | | [phone] | | | +--------+ + + + [...] | | | | | | [place] [address] | | | | | | [phone] | | | | | | | | +--------+ + + + + | 05/01/ | Procedure | Cardiology | | | | 2019 | visit | | | | +--------+ + + + + | 05/01/ | Office | Cardiology | Silvia, | | | 2019 | Visit | | PARISA Vernon [address] | | | | | | [place], | | | | | | [place] [address] | | | | | | [phone] | | | | | | | | +--------+ + + + + | 05/21/ | Implant | Cardiology | Daljit Singletary, | Remote Device | 2019 | Monitor | | [facility] | Interrogation | | | | | [place], | (Primary Dx); | | | | | [place] [address] | Pacemaker; | | | | | [phone] | Sinoatrial node | | | | | | dysfunction (HCC) | | | | | | with symptomatic | | | | | | bradycardia | +--------+ + + + + documented as of this encounter Visit Diagnoses Not on filedocumented in this encounter"
--- OUTSIDE RECORDS SUMMARY | ~2020-04-15 | XMS | Encounter Summary ---
Demographics + + + | Address | [address] | | | [place] [address] | + + + | Home Phone [...] Providers + +------+ + | Care Retail Attendant Name | Role | Phone | [...] + + | 12/14/ | Telephone | [facility] | Emmanuel Daniel MD | Follow-up, Office | | 2019 | | GASTROENTEROLOGY | [address], [place] | Visit (wants to | | | | [address] [place] | [address] [place] | cancel his office | | | | [address] [place] | [address] | appointment today) | | | | [address] | | | | | | [phone] | | | +--------+ + + + [...] | | | | | | [place] [address] | | | | | | [phone] | | | | | | | | +--------+ + + + + | 05/01/ | Procedure | Cardiology | | | | 2019 | visit | | | | +--------+ + + + + | 05/01/ | Office | Cardiology | Silvia, | | | 2019 | Visit | | PARISA Vernon [address] | | | | | | [place], | | | | | | [place] [address] | | | | | | [phone] | | | | | | | | +--------+ + + + + | 05/21/ | Implant | Cardiology | Daljit Singletary, | Remote Device | | 2019 | Monitor | | [address] [place] | Interrogation | | | | | [place], | (Primary Dx); | | | | | [place] [address] | Pacemaker; | | | | | [phone] | Sinoatrial node | | | | | | dysfunction (HCC) | | | | | | with symptomatic | | | | | | bradycardia | +--------+ + + + + documented as of this encounter Visit Diagnoses Not on filedocumented in this encounter"
--- OUTSIDE RECORDS SUMMARY | ~2020-04-15 | XMS | Encounter Summary ---
Demographics + + + | Address | [address] | | | [place] [address] | + + + | Home Phone [...] Providers + +------+ + | Care Internal Control Specialist Name | Role | Phone | [...] + | 03/24/ | Telephone | [facility] | [place], | Other (chest pain) | | 2018 | | CARDIOLOGY [address] | PARISA Vernon [address] | | | | | [place], | [place], | | | | | [place] [address] | [place] [address] | | | | | [phone] | [phone] | | | | | | | [...] | | | | | | [place] [address] | | | | | | [phone] | | | | | | | [...] | | | | | | [place] [address] | | | | | | [phone] | | | | | | | | +--------+ + + + + | 05/21/ | Implant | Cardiology | Daljit Singletary, | Remote Device | 2019 | Monitor | | [address] | Interrogation | | | | | [place], | (Primary Dx); | | | | | [place] [address] | Pacemaker; | | | | | [phone] | Sinoatrial node | | | | | | dysfunction (HCC) | | | | | | with symptomatic | | | | | | bradycardia | +--------+ + + + + documented as of this encounter Visit Diagnoses Not on filedocumented in this encounter"
--- OUTSIDE RECORDS SUMMARY | ~2020-04-15 | XMS | Encounter Summary ---
Demographics + + + | Address | [address] | | | [place] [address] | + + + | Home Phone [...] + +------+ + | Care Rn Clinical Documentation Name | Role | Phone | + [...] | SLEEP DISORDER [address] | [address] | Dx) | | | | [address] [place] | [place] | | | | | [place] [address] | [address] | | | | | [phone] | | | +--------+---------+ + + + [...] pillows obtained from: [facility] [place] pressure is: 13 cm CPAP download shows [...] to go to [facility] [place] to have them download his memory card. I will readjust his pressure, if necessary. I will call him with the results. He is to work toward wearing his CPAP 100% of the time he is asleep. I will follow up again in 1 month, sooner prn. Fifteen minutes were spent [id number], wi th the majority of time spent in counseling. Jay Cohn PA-C cc: Jaeck Holm MD documented in this enco unter [...] | | | | | | [place] [address] | | | | | | [phone] | | | | | | | [...] | | | | | | [place] [address] | | | | | | [phone] | | | | | | | | +--------+ + + + + | 05/21/ | Implant | Cardiology | SunshinecherelleDaljit, | Remote Device | | 2019 | Monitor | | [address] [facility] | Interrogation | | | | | [place], | (Primary Dx); | | | | | [place] [address] | Pacemaker; | | | | | [phone] | Sinoatrial node | | | | [...]
--- OUTSIDE RECORDS SUMMARY | ~2020-04-15 | XMS | Encounter Summary ---
Demographics + + + | Address | [address] [place] [address] [address] | | | [place] [address] | + + + | Home Phone [...] [place] | | | | | [address] | | + + + + + Care Team Providers + +------+ + | Care Honey Liquefier Name | Role | Phone | + [...] | | | | | unspecified | [address] | | | | | | type Rectal | Ave | | | | | | bleeding | [facility] [place] | | | | | | Procedures | [address] | | | | | | CONSULT TO | Phone: | | | | | | GASTROENTERO | [phone] | | | | | | LOGY | Fax: | | | | | | | [phone] | | + +--------+ + + + [...] | | | | | Procedures | [place], [place] | [facility] | | | | | CONSULT TO | [address] | Health and | | | | | ENDOSCOPY | Phone: | Healing, | | | | | UNIT: | [phone] | Building [address] | | | | | BOWEL | Fax: | [place], [place] | | | | | CAPSULE | [phone] | [address] | | | | | ENDOSCOPY | | Phone: | | | | | | | [phone] | | | | | | | Fax: | | | | | | | [phone] | + +--------+ + + + + [...] | | | unspecified | [address] | [address] | | | | | type Rectal | Ave | Mailcode: | | | | | bleeding | [place], [place] | [address] | | | | | Procedures | [address] | for Health | | | | | CONSULT TO | Phone: | and Healing, | | | | | ENDOSCOPY | [phone] | Building 2 | | | | | UNIT: | Fax: | [place], [place] | | | | | COLONOSCOPY | [phone] | [address] | | | | | | | Phone: | | | | | | | [phone] | | | | | | | Fax: | | | | | | | [phone] | +--------+--------+ + + + + Reason [...] | Other | | 2020 | | [place] at [facility] [address] | MD [address] | | | | | [address] | [facility] [place] | | | | | Mailcode: [place] | [address] | | | | | for Health and | [phone] | | | | | [facility] 2 | | | | | | [place], [place] | | | | | | [address] | | | | | | [phone] | | | +--------+ + + + [...]
--- OUTSIDE RECORDS SUMMARY | ~2020-04-15 | XMS | Encounter Summary ---
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 This means it will be harder [...] or, difficulty with vision, speech or walking [address] [place] [address]. All rights reserve d. This information is [...] from his pain clinic visit in the [facility] on Wednesday or he developed double vision [...] double vision. He was evaluated by Dr Nicholas and had a normal eye exam, nor [...] tablet by mouth Daily. 30 tablet 6 [place]-3 Fatty Acids (SALMON OIL-1000 PO) CAPS, [...] a follow-up on his right eye problem.Rob dunn signed by Kyra Salas LPN at 06/26/2013 [...] | | | | | | [place] [address] | | | | | | [phone] | | | | | | | | +--------+ + + + + | 05/01/ | Procedure | Cardiology | | | 2019 | visit | | | | +--------+ + + + + | 05/01/ | Office | Cardiology | Silvia, | | | 2019 | Visit | | PARISA Vernon [address] | | | | | | [place], | | | | | | [place] [address] | | | | | | [phone] | | | | | | | | +--------+ + + + + | 05/21/ | Implant | Cardiology | Daljit Singletary, | Remote Device | 2019 | Monitor | | [place] [facility] | Interrogation | | | | | [place], | (Primary Dx); | | | | | [place] [address] | Pacemaker; | | | | | [phone] | Sinoatrial node | | | | [...] | [facility] | [address] | [place] | [phone] | | [facility] | | [address] | | | - LABORATORY | | | | + + + + + | [facility] | [address] | [place] | | | [facility] | | [address] | | | - LABORATORY [...] | [address] | | | Sedimentati | | [...] | [facility] | [address] | [place] | [phone] | | [facility] | | [address] | | | - LABORATORY | | | | + + + + + | [facility] | [address] | [place], [place] | | | [facility] | | [address], [place] | | | - LABORATORY | | [...] + | [facility] | [address] | [place] | [phone] | | [facility] | | [address] | | | - LABORATORY | | | | + + + + + | [facility] | [address] | [place] | | | [facility] | | [address] [place] [address] | | | - LABORATORY | | | | + + + + + documented in this encounter Visit Diagnoses + + | Diagnosis | + + | Diplopia - Primary | + + | Symptomatic PVCs Other premature beats | + + | Hypertension Unspecified essential hypertension | + + documented in this encounter
--- OUTSIDE RECORDS SUMMARY | ~2020-04-15 | XMS | Encounter Summary ---
Demographics + + + | Address | [address] | | | [place] [address] | + + + | Home Phone [...] Providers + +------+ + | Care Risk Management Professional Name | Role | Phone | [...] | on | GASTROENTEROLOGY | [address] [place], [place] | | | | | [address] [place] | [address] [place], [place] | | | | | [address] [place], [place] | [address] | | | | | [address] | | | | | | [phone] | | | +--------+ + + + [...] | | | | | | [place] [address] | | | | | | [phone] | | | | | | | | +--------+ + + + + | 05/01/ | Procedure | Cardiology | | | | 2019 | visit | | | | +--------+ + + + + | 05/01/ | Office | Cardiology | Silvia, | | | 2019 | Visit | | PARISA Vernon [address] | | | | | | [place], | | | | | | [place] [address] | | | | | | [phone] | | | | | | | | +--------+ + + + + | 05/21/ | Implant | Cardiology | Daljit Singletary, | Remote Device | | 2019 | Monitor | | [facility] | Interrogation | | | | | [place], | (Primary Dx); | | | | | [place] [address] | Pacemaker; | | | | | [phone] | Sinoatrial node | | | | | | dysfunction (HCC) | | | | | | with symptomatic | | | | | | bradycardia | +--------+ + + + + documented as of this encounter Visit Diagnoses Not on filedocumented in this encounter"
--- OUTSIDE RECORDS SUMMARY | ~2020-04-15 | XMS | Encounter Summary ---
Demographics + + + | Address | [address] | | | [place] [address] | + + + | Home Phone [...] Team Providers + +------+ + | Care Mill And Coal Transport Operator Name | Role | Phone | [...] | 10/26/ | Refill | [facility] | Kirk French | Medication Refill | | 2019 | | GASTROENTEROLOGY | MD [address] | | | | | [address] | [address] | | | | | [address] [place], [place] | [place] [address] | | | | | [address] | [phone] | | | | | [phone] | | | +--------+--------+ + + + [...] | | | | | | [place] [address] | | | | | | [phone] | | | | | | | | +--------+ + + + + | 05/01/ | Procedure | Cardiology | | | | 2019 | visit | | | | +--------+ + + + + | 05/01/ | Office | Cardiology | Silvia, | | | 2019 | Visit | | PARISA Vernon [address] | | | | | | [place], | | | | | | [place] [address] | | | | | | [phone] | | | | | | | | +--------+ + + + + | 05/21/ | Implant | Cardiology | Daljit Singletary, | Remote Device | 2019 | Monitor | | [address] [facility] | Interrogation | | | | | [place], | (Primary Dx); | | | | | [place] [address] | Pacemaker; | | | | | [phone] | Sinoatrial node | | | | | | dysfunction (HCC) | | | | | | with symptomatic | | | | | | bradycardia | +--------+ + + + + documented as of this encounter Visit Diagnoses Not on filedocumented in this encounter"
--- OUTSIDE RECORDS SUMMARY | ~2020-04-15 | XMS | Encounter Summary ---
Demographics + + + | Address | [address] | | | [place] [address] | + + + | Home Phone [...] Providers + +------+ + | Care Cash Register Servicer Name | Role | Phone | [...] | 2018 | Changes | GASTROENTEROLOGY | Surgical Tech | | | | | [address] [facility] | | | | | | [address] [place] | | | | | | [address] | | | | | | [phone] | | | +--------+ + + + [...] W | | | | | | [place], | | | | | | [place] [address] | | | | | | [phone] | | | | | | | | +--------+ + + + + | 05/01/ | Procedure | Cardiology | | | | 2019 | visit | | | | +--------+ + + + + | 05/01/ | Office | Cardiology | Silvia, | | | 2019 | Visit | | [address] | | | | | | [place], | | | | | | [place] [address] | | | | | | [phone] | | | | | | | | +--------+ + + + + | 05/21/ | Implant | Cardiology | Daljit Singletary, | Remote Device | | 2020 | Monitor | | [facility] | Interrogation | | | | | [place], | (Primary Dx); | | | | | [place] [address] | Pacemaker; | | | | | [phone] | Sinoatrial node | | | | | | dysfunction (HCC) | | | | | | with symptomatic | | | | | | bradycardia | +--------+ + + + + documented as of this encounter Visit Diagnoses Not on filedocumented in this encounter"
--- OUTSIDE RECORDS SUMMARY | ~2020-04-15 | XMS | Encounter Summary ---
Demographics + + + | Address | [address] | | | [place] [address] | + + + | Home Phone [...] Team Providers + +------+ + | Care Adjuster Name | Role | Phone | [...] | [place] | [address] | | | | | [address] | [address] | | | | | [phone] | | | +--------+ + + + [...] | | | | | | [place] [address] | | | | | | [phone] | | | | | | | | +--------+ + + + + | 05/01/ | Procedure | Cardiology | | | | 2019 | visit | | | | +--------+ + + + + | 05/01/ | Office | Cardiology | Sivlia, | | | 2019 | Visit | | [address] | | | | | | [place], | | | | | | [place] [address] | | | | | | [phone] | | | | | | | | +--------+ + + + + | 05/21/ | Implant | Cardiology | Daljit Singletary, | Remote Device | | 2019 | Monitor | | [address] [place] | Interrogation | | | | | [place], | (Primary Dx); | | | | | [place] [address] | Pacemaker; | | | | | [phone] | Sinoatrial node | | | | | | dysfunction ([facility]) | | | | | | with symptomatic | | | | | | bradycardia | +--------+ + + + + documented as of this encounter Visit Diagnoses Not on filedocumented in this encounter"
--- OUTSIDE RECORDS SUMMARY | ~2020-04-15 | XMS | Encounter Summary ---
Demographics + + + | Address | [address] | | | [place] [address] | + + + | Home Phone [...] | Author | [facility] | | | [...] Team Providers + +------+ + | Care Microwave Remote Sensing Scientist Name | Role | Phone | [...] 2019 | | GASTROENTEROLOGY | [address], [place] | | | | | [address] [place] | [address] [place], [place] | | | | | [address] [place], [place] | [address] | | | | | [address] | | | | | | [phone] | | | +--------+ + + + [...] | | | | | | [place] [address] | | | | | | [phone] | | | | | | | [...] | | | | | | [place] [address] | | | | | | [phone] | | | | | | | | +--------+ + + + + | 05/21/ | Implant | Cardiology | Daljit Singletary, | Remote Device | 2019 | Monitor | | [address] | Interrogation | | | | | [place], | (Primary Dx); | | | | | [place] [address] | Pacemaker; | | | | | [phone] | Sinoatrial node | | | | [...]
--- OUTSIDE RECORDS SUMMARY | ~2020-04-15 | XMS | Encounter Summary ---
Demographics + + + | Address | [address] | | | [place] [address] | + + + | Home Phone [...] Team Providers + +------+ + | Care Asphalt Spreader Name | Role | Phone | [...] [address] | | | | | | [place], [place] | (Fax) | | | | | [address] | | | | | | [phone] | | | +--------+ + + + [...] | | | | | | [place] [address] | | | | | | [phone] | | | | | | | [...] | | | | | | [place] [address] | | | | | | [phone] | | | | | | | | +--------+ + + + + | 05/21/ | Implant | Cardiology | Daljit Singletary, | Remote Device | | 2019 | Monitor | | [address] [place] | Interrogation | | | | | [place], | (Primary Dx); | | | | | [place] [address] | Pacemaker; | | | | | [phone] | Sinoatrial node | | | | | | dysfunction (HCC) | | | | | | with symptomatic | | | | | | bradycardia | +--------+ + + + + documented as of this encounter Visit Diagnoses Not on filedocumented in this encounter"
--- OUTSIDE RECORDS SUMMARY | ~2020-04-15 | XMS | Encounter Summary ---
Demographics + + + | Address | [address] | | | [place] [address] | + + + | Home Phone [...] Providers + +------+ + | Care Hand Carver Name | Role | Phone | [...] + + | 01/01/ | Telephone | [facility] | Kirk French | Other (Pacemaker) | | 2020 | | [facility] | MD Brea [address] | | | | | [facility] [address] | | | | | [address] | [place] [address] | | | | | [place], [place] | [phone] | | | | | [address] | | | | | | [phone] | | | +--------+ + + + [...] | | | | | | [place] [address] | | | | | | [phone] | | | | | | | | +--------+ + + + + | 05/01/ | Procedure | Cardiology | | | | 2019 | visit | | | | +--------+ + + + + | 05/01/ | Office | Cardiology | Silvia, | | | 2019 | Visit | | PARISA [address] | | | | | | [place], | | | | | | [place] [address] | | | | | | [phone] | | | | | | | | +--------+ + + + + | 05/21/ | Implant | Cardiology | Daljit Singletary, | Remote Device | 2019 | Monitor | | [address] | Interrogation | | | | | [place], | (Primary Dx); | | | | | [place] [address] | Pacemaker; | | | | | [phone] | Sinoatrial node | | | | | | dysfunction (HCC) | | | | | | with symptomatic | | | | | | bradycardia | +--------+ + + + + documented as of this encounter Visit Diagnoses Not on filedocumented in this encounter"
--- OUTSIDE RECORDS SUMMARY | ~2020-04-15 | XMS | Encounter Summary ---
Demographics + + + | Address | [address] | | | [place] [address] | + + + | Home Phone [...] Providers + +------+ + | Care Tier Lift Truck Operator Name | Role | Phone | [...] + + | 05/14/ | Office | [facility] | Silvia, | Coronary artery | | 2013 | Visit | CARDIOLOGY [address] | [address] | disease (Primary | | | | [place], | [place], | Dx); Hypertension; | | | | [place] [address] | [place] [address] | Hyperlipidemia; | | | | [phone] | [phone] | Syncope; Other chest | | | [...] needed for Chest pain. 25 tablet 12 [place]-3 Fatty Acids (SALMON OIL-1000 PO) CAPS, one [...] cannot completely be ruled out. D. [facility] 12/25/13, shows noncritical coronary artery [...] exercising. He is in class II of [place] Heart Association functional class. There are no [...] ventricular arrhythmia performed by Dr. Gambino at [facility] on 01/30/2013. Patient had spontaneous PVCs [...] go back in 3 days to [place] for an attempt of ablation under general [...] palpitations.. He is in class II of [place] Heart Association functional class. There are no [...] bring in his blood pressure logs from [facility]. Lightheadedness and dizziness/ presyncope: A. Episode [...] made to ensure accuracy; however, inadvertent computerized chief cook errors may be pre sent. Electronically signed [...] | | | | | | [place] [address] | | | | | | [phone] | | | | | | | [...] | | | | | | [place] [address] | | | | | | [phone] | | | | | | | | +--------+ + + + + | 05/21/ | Implant | Cardiology | Daljit Singletary, | Remote Device | | 2019 | Monitor | | [address] [facility] | Interrogation | | | | | [place], | (Primary Dx); | | | | | [place] [address] | Pacemaker; | | | | | [phone] | Sinoatrial node | | | | [...] of unspecified type of | | vessel, redding or graft | + + | Hypertension Unspecified essential hypertension | + + | Hyperlipidemia Other and unspecified hyperlipidemia | + + | Syncope Syncope and collapse | + + | Other chest pain | + + | Chest pain Chest pain, unspecified | + + documented in this encounter
--- OUTSIDE RECORDS SUMMARY | ~2020-04-15 | XMS | Encounter Summary ---
Demographics + + + | Address | [address] | | | [place] [address] | + + + | Home Phone [...] Team Providers + +------+ + | Care Insulating Machine Operator Name | Role | Phone [...] + + | 04/24/ | Office | [facility] | Silvia, | Symptomatic PVCs | | 2012 | Visit | CARDIOLOGY [address] | [address] [place] [address] | (Primary Dx); CAD; | | | | [place], | [place], | Hyperlipidemia; | | | | [place] [address] | [place] [address] | PACEMAKER, PERMANENT | | | | [phone] | [phone] | - [employer] | | | | [...] tablet by mouth Daily. 30 tablet 6 [place]-3 Fatty Acids (SALMON OIL-1000 PO) CAPS, one [...] Reviewed records from PCP and notes from [facility]. Assessment: 1. Symptomatic PVCs status post [...] ventricular arrhythmia performed by Dr. Gambino at [facility] on 01/30/2013. Patient had spontaneous [...] to go back in 3 days to [place] for an attempt of ablation under general [...] He is upgraded to class I of [place] Heart Association functional class. There are no [...] made to ensure accuracy; however, inadvertent computerized automotive sales manager errors may be pre sent. documented in this encounter Plan of Treatment +--------+ + + + + | Date | Type | Specialty | Care Team | Description | +--------+ + + + + | 05/01/ | Appointment | Radiology | Silvia, | | | 2019 | | | [address] | | | | | | [place], | | | | | | [place] [address] | | | | | | [phone] | | | | | | | | +--------+ + + + + | 05/01/ | Procedure | Cardiology | | | | 2019 | visit | | | | +--------+ + + + + | 05/01/ | Office | Cardiology | Silvia, | | | 2019 | Visit | | [address] | | | | | | [place], | | | | | | [place] [address] | | | | | | [phone] | | | | | | | | +--------+ + + + + | 05/21/ | Implant | Cardiology | Daljit Singletary, | Remote Device | | 2019 | Monitor | | [address] [facility] | Interrogation | | | | | [place], | (Primary Dx); | | | | | [place] [address] | Pacemaker; | | | | | [phone] | Sinoatrial node | | | | [...] Coronary atherosclerosis of unspecified type of vessel, [place] or graft | + + | Hyperlipidemia Other and unspecified hyperlipidemia | + + | PACEMAKER, PERMANENT - [employer] 06/14/09GRANT Cardiac pacemaker in situ | + + documented in this encounter
--- OUTSIDE RECORDS SUMMARY | ~2020-04-15 | XMS | Encounter Summary ---
Demographics + + + | Address | [address] | | | [place] [address] | + + + | Home Phone [...] Providers + +------+ + | Care Truck Loader Name | Role | Phone | [...] | [place] | [place] | | | | | [address] | [address] | | | | | [phone] | | | +--------+ + + + [...] | | | | | | [place] [address] | | | | | | [phone] | | | | | | | | +--------+ + + + + | 05/01/ | Procedure | Cardiology | | | | 2019 | visit | | | | +--------+ + + + + | 05/01/ | Office | Cardiology | Silvia, | | | 2019 | Visit | | [place] [address] | | | | | | [place], | | | | | | [place] [address] | | | | | | [phone] | | | | | | | | +--------+ + + + + | 05/21/ | Implant | Cardiology | Daljit Singletary, | Remote Device | | 2019 | Monitor | | [address] [facility] | Interrogation | | | | | [place], | (Primary Dx); | | | | | [place] [address] | Pacemaker; | | | | | [phone] | Sinoatrial node | | | | | | dysfunction (HCC) | | | | | | with symptomatic | | | | | | bradycardia | +--------+ + + + + documented as of this encounter Visit Diagnoses Not on filedocumented in this encounter"
--- OUTSIDE RECORDS SUMMARY | ~2020-04-15 | XMS | Encounter Summary ---
Demographics + + + | Address | [address] | | | [place] [address] | + + + | Home Phone [...] Team Providers + +------+ + | Care Maple Sugar Maker Name | Role | Phone | [...] having issues with | | | | [place], | [place], | high blood pressure) | | | | [place] [address] | [place] [address] | | | | | [phone] | [phone] | | | | | | | [...] | | | | | | [place] [address] | | | | | | [phone] | | | | | | | | +--------+ + + + + | 05/01/ | Procedure | Cardiology | | | | 2019 | visit | | | | +--------+ + + + + | 05/01/ | Office | Cardiology | Silvia, | | | 2019 | Visit | | PARISA [place] W | | | | | | [place], | | | | | | [place] [address] | | | | | | [phone] | | | | | | | | +--------+ + + + + | 05/21/ | Implant | Cardiology | Daljit Singletary, | Remote Device | 2019 | Monitor | | [address] | Interrogation | | | | | [place], | (Primary Dx); | | | | | [place] [address] | Pacemaker; | | | | | [phone] | Sinoatrial node | | | | | | dysfunction (HCC) | | | | | | with symptomatic | | | | | | bradycardia | +--------+ + + + + documented as of this encounter Visit Diagnoses Not on filedocumented in this encounter"
--- OUTSIDE RECORDS SUMMARY | ~2020-04-15 | XMS | Encounter Summary ---
Demographics + + + | Address | [address] | | | [place] [address] | + + + | Home Phone [...] Team Providers + +------+ + | Care Setter Out Name | Role | Phone | + [...] | | [address] [place] | [place] [address] | | | | | [place] [address] | | | | | | [phone] | | | +--------+ + + + [...] | | | | | | [place] [address] | | | | | | [phone] | | | | | | | [...] | | | | | | [place] [address] | | | | | | [phone] | | | | | | | | +--------+ + + + + | 05/21/ | Implant | Cardiology | Daljit Singletary, | Remote Device | | 2019 | Monitor | | MD [address] [facility] | Interrogation | | | | | [place], | (Primary Dx); | | | | | [place] [address] | Pacemaker; | | | | | [phone] | Sinoatrial node | | | | [...]
--- OUTSIDE RECORDS SUMMARY | ~2020-04-15 | XMS | Encounter Summary ---
Demographics + + + | Address | [address] | | | [place] [address] | + + + | Home Phone [...] Providers + +------+ + | Care Upholstery Mechanic Name | Role | Phone | [...] 2019 | | GASTROENTEROLOGY | [address] [place], [place] | | | | | [address] [place] | [address] [place], [place] | | | | | [address] [place], [place] | [address] | | | | | [address] | | | | | | [phone] | | | +--------+ + + + [...] | | 2019 | | | PARISA Vernno [address] | | | | | | [place], | | | | | | [place] [address] | | | | | | [phone] | | | | | | | [...] | | | | | | [place] [address] | | | | | | [phone] | | | | | | | | +--------+ + + + + | 05/21/ | Implant | Cardiology | Daljit Singletary, | Remote Device | 2019 | Monitor | | MD [address] | Interrogation | | | | | [place], | (Primary Dx); | | | | | [place] [address] | Pacemaker; | | | | | [phone] | Sinoatrial node | | | | | | dysfunction (HCC) | | | | | | with symptomatic | | | | | | bradycardia | +--------+ + + + + documented as of this encounter Visit Diagnoses Not on filedocumented in this encounter"
--- OUTSIDE RECORDS SUMMARY | ~2020-04-15 | XMS | Encounter Summary ---
Demographics + + + | Address | [address] | | | [place] [address] | + + + | Home Phone [...] Providers + +------+ + | Care Assistant Media Buyer Name | Role | Phone | [...] | | | pain | [address] | [address] | | | | | Procedures | [place] | [place], | | | | | [place] Nuclear | [place], [place] | [place] | | | | | Stress Test | [address] | [address] | | | | | (Vasodilator | Phone: | Phone: | | | | | ) CHG | [phone] | [phone] | | | | | MYOCARDIAL | Fax: | Fax: | | | | | SPECT | [phone] | [phone] | | | | | MULTIPLE | [...] 2012 | | CARDIOLOGY [address] | BUTTERMAKER CONTINUOUS CHURN [address] | interactions, chest | | | | [place], | [place], [place] | pain) | | | | [place] [address] | [address] | | | | | [phone] | | | +--------+ + + + [...] | | | | | | [place] [address] | | | | | | [phone] | | | | | | | [...] | | | | | | [place] [address] | | | | | | [phone] | | | | | | | | +--------+ + + + + | 05/21/ | Implant | Cardiology | SunshinecherelleDaljit, | Remote Device | | 2019 | Monitor | | MD [address] [place] | Interrogation | | | | | [place], | (Primary Dx); | | | | | [place] [id number] | Pacemaker; | | | | | [phone] | Sinoatrial node | | | | [...] Performed At | + + + | [facility] Diagnostic Imaging | [place] | | Department [address] [facility] | MICHELLE | | [ rep ct [address]] [ rep [facility] | | [facility]] Signed | - IMAGING | | | | | Patient Name: MOE GAY | | | Physician: JACKLYN : 1960 Age: 53 Sex: M Unit | | | #: [id number] Exam Date: 12/06/13 Location: | | | [facility] Report #: [id number] Page: | | | %(RAD)RES..mtdd.print.filter("pg") of %(RAD) | | | RES..mtdd.print.filter("tpg") | | | | | | Accession Number: [id number] | | | PERSANTINE SESTAMIBI STRESS TEST, [...] Transcribed Date/Time: 12/07/2013 08:18 | | | Pricing Consultant: <<Signature on File>> | | | | | | Daljit Singletary MD [facility]12/07/13 1321 <Electronically signed | | | by Daljit Singletary MD, FAC, FACP, FASNanette, [facility]> Daljit | | | MD Gemini [facility] 12/07/13 0701 Pricing Consultant: Laiyaoyaomedx | | | Iknkwdpkpmlct82/16/14 0818 PARISA Garcia | | + + + + + + + + | Performing | Address | City/State/Zipcode | Phone Number | | Organization | | | | + + + + + | [facility] | [address] | [place] | [phone] | | [facility] | | [address] | | | - IMAGING | | | | + + + + + documented in this encounter Visit Diagnoses + + | Diagnosis | + + | Other chest pain - Primary | + + documented in this encounter
--- OUTSIDE RECORDS SUMMARY | ~2020-04-15 | XMS | Encounter Summary ---
Demographics + + + | Address | [address] | | | [place] [address] | + + + | Home Phone [...] + + | 04/07/ | Office | [facility] | Matthew Uriarte | Left ureteral | | 2019 | Visit | [address] | MD Tawanna [address] | calculus (Primary | | | | [place], [place] | AVE [place], [place] | Dx); Kidney stones | | | | [address] | [address] | | | | | [phone] | | | +--------+---------+ + + + [...] April 13, 2019 at 7:45 AM at [facility]. Please report to the [facility] Procedure Center no later than 6:15 AM. REMEMBER: NOTHING TO EAT OR DRINK AFTER MIDNIGHT April 12, 2019. NO FISH OIL, ASPIRIN OR ASPIRIN PRODUCTS ONE WEEK PRIOR TO SURGERY. Tylenol and Advil are OK. You will need to get the following testing done prior to surgery: CBC, BMP YOU WILL NEED TO BRING A AGENCY APPOINTMENTS SUPERVISOR WITH YOU THE DAY OF SURGERY. Call us at [phone] with any questions. [] Pain management booklet [...] Medtronic Peptic ulcer disease Premature ventricular contraction [facility] care 06/26/2013 LAST PSA:12/16/2010 RESULT:0.14 LAST COLONOSCOPY:02/05/2009 [...] LHC; Surgeon: Daljit Singletary MD; Location: [facility] CV LAB CARDIAC CATHERIZATION N/A 01/25/2019 Procedure: CV Cor Angio; Surgeon: Daljit Singletary MD; Location: [facility] CV LAB COLONOSCOPY N/A 12/24/2017 Procedure: COLONOSCOPY; Surgeon: Emmanuel Daniel MD; Location: [facility] MEDICAL PROCEDURE UNIT COLONOSCOPY N/A 01/05/2019 Procedure: COLONOSCOPY; Surgeon: Emmanuel Daniel MD; Location: [facility] MEDICAL PROCEDURE UNIT EGD 12/24/2017 HARDWARE REMOVAL [...] EGD; Surgeon: Emmanuel Daniel MD; Location: [facility] MEDICAL PROCEDURE UNIT UPPER GASTROINTESTINAL ENDOSCOPY N/A 01/05/2019 Procedure: EGD; Surgeon: Emmanuel Daniel MD; Location: [facility] MEDICAL PROCEDURE UNIT VASECTOMY Family History: Family [...] EVERY DAY, Disp: 90 tablet, Rfl: 3 [facility] Natural Products (OSTEO BI-FLEX/5-LOXIN ADVANCED PO), Take [...] 911, Disp: 100 ta blet, Rfl: 3 Luther-3 Fatty Acids (SALMON OIL-1000 PO), CAPS, one [...] have not thoroughly proofread this note, and dispatcher tugboat errors are very likely to occur. CC: Kirk French MD documented in this encounter Plan of Treatment +--------+ + + + + | Date | Type | Specialty | Care Team | Description | +--------+ + + + + | 05/01/ | Appointment | Radiology | Silvia, | | | 2019 | | | [address] | | | | | | [place], | | | | | | [place] [address] | | | | | | [phone] | | | | | | | | +--------+ + + + + | 05/01/ | Procedure | Cardiology | | | | 2019 | visit | | | | +--------+ + + + + | 05/01/ | Office | Cardiology | Silvia, | | | 2019 | Visit | | PARISA [address] W | | | | | | [place], | | | | | | [place] [address] | | | | | | [phone] | | | | | | | | +--------+ + + + + | 05/21/ | Implant | Cardiology | Daljit Singletary, | Remote Device | 2019 | Monitor | | MD [address] [place] | Interrogation | | | | | [place], | (Primary Dx); | | | | | [place] [address] | Pacemaker; | | | | | [phone] | Sinoatrial node | | | | [...]
--- OUTSIDE RECORDS SUMMARY | ~2020-04-15 | XMS | Encounter Summary ---
Demographics + + + | Address | [address] | | | [place] [address] | + + + | Home Phone [...] Team Providers + +------+ + | Care Legislative Director Name | Role | Phone | [...] CARDIOLOGY [address] | MD [address] [place] | Interrogation | | | | [place], | [place], | (Primary Dx); | | | | [place] [address] | [place] [address] | Pacemaker; | | | | [phone] | [phone] | Sinoatrial node | | | | [...] | | | | | | [place] [address] | | | | | | [phone] | | | | | | | | +--------+ + + + + | 05/01/ | Procedure | Cardiology | | | | 2019 | visit | | | | +--------+ + + + + | 05/01/ | Office | Cardiology | Silvia, | | | 2019 | Visit | | PARISA [address] | | | | | | [place], | | | | | | [place] [address] | | | | | | [phone] | | | | | | | | +--------+ + + + + | 05/21/ | Implant | Cardiology | Daljit Singletary, | Remote Device | 2019 | Monitor | | MD Sim [facility] | Interrogation | | | | | [place], | (Primary Dx); | | | | | [place] [address] | Pacemaker; | | | | | [phone] | Sinoatrial node | | | | | | dysfunction ([facility]) | | | | | [...] remote PDF scanned into | | | [facility] for remote interrogation results. Data collected [...]
--- OUTSIDE RECORDS SUMMARY | ~2020-04-15 | XMS | Encounter Summary ---
Demographics + + + | Address | [address] | | | [place] [address] | + + + | Home Phone [...] Providers + +------+ + | Care Crusher And Binder Operator Name | Role | Phone | + +------+ + PCP | Unavailable | + +------+ + Encounter Details +--------+ + + + + | Date | Type | Department | Care Team | Description | +--------+ + + + + | 04/22/ | Hospital | [facility] | | | | 2011 | Encounter | MED CTR XRAY [address] | | | | | | [address] | | | | | | [place] [address] | | | | | | [phone] | | | +--------+ + + + [...] | | | | | | [place] [address] | | | | | | [phone] | | | | | | | | +--------+ + + + + | 05/01/ | Procedure | Cardiology | | | | 2019 | visit | | | | +--------+ + + + + | 05/01/ | Office | Cardiology | Silvia, | | | 2019 | Visit | | PARISA Vernon [address] | | | | | | [place], | | | | | | [place] [address] | | | | | | [phone] | | | | | | | | +--------+ + + + + | 05/21/ | Implant | Cardiology | Daljit Singletary, | Remote Device | | 2019 | Monitor | | MD [address] [place] | Interrogation | | | | | [place], | (Primary Dx); | | | | | [place] [address] | Pacemaker; | | | | | [phone] | Sinoatrial node | | | | [...] Performed At | + + + | [facility] Diagnostic Imaging Department | [place] | | [address] [facility] | [place] [facility] | | CT MYELOGRAM LUMBAR [...] Transcribed Date/Time: | | | 04/23/2012 11:06 Orthodontic Laboratory Technician: <Electronically Signed | | | by Jama Solis MD> 04/24/12 0730 | | + + + + + | Procedure Note | + + | Kevin, Rad Conversion - 12/29/2013 5:27 PM [facility] | | Diagnostic Imaging Department [address] [place] [address] | | CT MYELOGRAM LUMBAR SPINE, 04/22/2012 [...] 10:54 | |Transcribed Date/Time: 04/23/2012 11:06 | |Orthodontic Laboratory Technician: | |<Electronically Signed by Jama Solis MD> 04/24/12 0730 | + + + +---------+ + + | Performing | Address | City/State/Zipcode | Phone Number | | Organization | | | | + +---------+ + + | [facility] | | | | | [facility] DIAG IMG | | | | + +---------+ + + CT Thoracic Spine w Contrast (04/22/2012 1:12 PM PDT) + + | Specimen | + + | | + + + + + | Narrative | Performed At | + + + | [facility] Diagnostic Imaging Department | [facility] | | [address] [facility] | [facility] | | THORACIC CT MYELOGRAM [...] Transcribed Date/Time: 04/22/2012 17:32 | | | Orthodontic Laboratory Technician: <Electronically Signed by Jama Mason | | | MD Will> 04/23/12 1039 | | + + + + + | Procedure Note | + + | Kevin, Rad Conversion - 12/29/2013 5:27 PM [facility] | | Diagnostic Imaging Department [address] [facility] | | THORACIC CT MYELOGRAM CLINICAL HISTORY: [...] 16:56 | |Transcribed Date/Time: 04/22/2012 17:32 | |Orthodontic Laboratory Technician: | |<Electronically Signed by Jama Solis MD> 04/23/12 1039 | + + + +---------+ + + | Performing | Address | City/State/Zipcode | Phone Number | | Organization | | | | + +---------+ + + | [place] | | | | | [facility] | | | | + +---------+ + + CT Cervical Spine w Contrast (04/22/2012 1:12 PM PDT) + + | Specimen | + + | | + + + + + | Narrative | Performed At | + + + | [facility] Diagnostic Imaging Department | [facility] | | [address] [facility] | [facility] | | CT MYELOGRAM CERVICAL [...] Transcribed Date/Time: | | | 04/22/2012 17:25 Orthodontic Laboratory Technician: 1 <Electronically Signed | | | by Jama Solis MD> 04/23/12 1039 | | + + + + + | Procedure Note | + + | Kevin, Rad Conversion - 12/29/2013 5:27 PM [facility] | | Diagnostic Imaging Department | | [address] [facility] | | | | | | | [...] | Transcribed Date/Time: 04/22/2012 17:25 | | Orthodontic Laboratory Technician: | | <Electronically Signed by Jama [...] Performed At | + + + | [facility] Diagnostic Imaging Department | [place] | | [address] [place] | [place] | | LUMBAR [...] Transcribed Date/Time: 04/22/2012 16:36 | | | Orthodontic Laboratory Technician: DEBRA <Electronically Signed by Jama Mason | | | MD Will> 04/23/12 1039 | | + + + + + | Procedure Note | + + | Kevin, Rad Conversion - 12/29/2013 5:27 PM [facility] | | Diagnostic Imaging Department [address] [place] [address] | | LUMBAR MYELOGRAM INJECTION FOR CT [...] 15:51 | |Transcribed Date/Time: 04/22/2012 16:36 | |Orthodontic Laboratory Technician: | |<Electronically Signed by Jama Solis [...]
--- OUTSIDE RECORDS SUMMARY | ~2020-04-15 | XMS | Encounter Summary ---
Demographics + + + | Address | [address] | | | [place] [address] | + + + | Home Phone [...] + +------+ + | Care Customer Service Analyst Name | Role | Phone | [...] | | | | [place] | [address] | | | | | [address] | | | | | | [phone] | | | +--------+ + + + [...] W | | | | | | [place], | | | | | | [place] [address] | | | | | | [phone] | | | | | | | | +--------+ + + + + | 05/01/ | Procedure | Cardiology | | | | 2019 | visit | | | | +--------+ + + + + | 05/01/ | Office | Cardiology | Silvia, | | | 2019 | Visit | | [address] | | | | | | [place], | | | | | | [place] [address] | | | | | | [phone] | | | | | | | | +--------+ + + + + | 05/21/ | Implant | Cardiology | Daljit Singletary, | Remote Device | 2019 | Monitor | | MD [place] | Interrogation | | | | | [place], | (Primary Dx); | | | | | [place] [address] | Pacemaker; | | | | | [phone] | Sinoatrial node | | | | | | dysfunction (HCC) | | | | | | with symptomatic | | | | | | bradycardia | +--------+ + + + + documented as of this encounter Visit Diagnoses Not on filedocumented in this encounter"
--- OUTSIDE RECORDS SUMMARY | ~2020-04-15 | XMS | Encounter Summary ---
Demographics + + + | Address | [address] [place] [address] [address] LOZANO | | | [place] [address] | + + + | Home Phone [...] [place] | | | | | [address] | | + + + + + Care Team Providers + +------+ + | Care Sitecore Developer Name | Role | Phone | [...] | | [address] | [facility] [place] | ED) | | | | Mailcode: Center | [address] | | | | | for Health and | [phone] | | | | | [facility], [facility] 2 | | | | | | [place], [place] | | | | | | [address] | | | | | | [phone] | | | +--------+ + + + [...]
--- OUTSIDE RECORDS SUMMARY | ~2020-04-15 | XMS | Encounter Summary ---
Demographics + + + | Address | [address] | | | [place] [address] | + + + | Home Phone [...] + | 06/24/ | Telephone | [facility] | Daljit Singletary, | Lab Order | | 2017 | | CARDIOLOGY [address] | MD [address] [place] [address] [place] | | | | | [place], | [place], | | | | | [place] [address] | [place] [address] | | | | | [phone] | [phone] | | | | | | | [...] | | | | | | [place] [address] | | | | | | [phone] | | | | | | | | +--------+ + + + + | 05/01/ | Procedure | Cardiology | | | | 2019 | visit | | | | +--------+ + + + + | 05/01/ | Office | Cardiology | [place], | | | 2019 | Visit | | PARISA Vernon [address] | | | | | | [place], | | | | | | [place] [address] | | | | | | [phone] | | | | | | | | +--------+ + + + + | 05/21/ | Implant | Cardiology | Daljit Singletary, | Remote Device | | 2019 | Monitor | | MD [address] [place] | Interrogation | | | | | [place], | (Primary Dx); | | | | | [place] [address] | Pacemaker; | | | | | [phone] | Sinoatrial node | | | | [...] 06/24/2018, Expires: | | | | | [place] coronary | 06/24/2019 | | | | | artery of [place] | | | | | | heart without angina | | | | | | pectoris | | | | | | Hyperlipidemia, | | | | | | mixed | | + +------+--------+ + + documented as of this encounter Visit Diagnoses + + | Diagnosis | + + | Coronary artery disease involving [place] coronary artery of [place] heart without | | angina pectoris - Primary | + + | Hyperlipidemia, mixed Mixed hyperlipidemia | + + documented in this encounter"
--- OUTSIDE RECORDS SUMMARY | ~2020-04-15 | XMS | Encounter Summary ---
Demographics + + + | Address | [address] [place] [address] [address] | | | [place] [address] | + + + | Home Phone [...] [place] | | | | | [address] | | + + + + + Care Team Providers + +------+ + | Care Medical Transcription Editor Name | Role | Phone | [...] | | incontinence | [facility] | [address] | | | | | of feces | PHYSICIAN | Mailcode: | | | | | Diarrhea, | MED [facility] | [facility] for | | | | | unspecified | [address] | Health and | | | | | | [address] | Healing, | | | | | | [place] | [address] | | | | | | [place], [place] | [place], [place] | | | | | | [address] | [address] | | | | | | Phone: | Phone: | | | | | | [phone] | [phone] | | | | | | Fax: | Fax: | | | | | | [phone] | [phone] | +--------+--------+ + + + + Encounter Details +--------+---------+ + + + | Date | Type | Department | Care Team | Description | +--------+---------+ + + + | 09/28/ | Office | Digestive Health | Bridgette Rios, | Chronic diarrhea | | 2019 | Visit | [facility] [address] | [address] | (Primary Dx); | | | | [address] | [place], [place] | Abdominal cramping; | | | | Mailcode: [place] | [address] | Unintentional weight | | | | for Health and | [phone] | loss | | | | [facility] | | | | | | [place], [place] | | | | | | [address] | | | | | | [phone] | | | +--------+---------+ + + + [...] lab orders to [facility] 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 Gastroenterology Clinic [facility] ~ Initial Consultation / New [...] disease. CT scan done through [facility] November show ed mild diverticulosis without evidence [...] of Present Illness: Here with his from [place] for second opinion regarding severe abdominal cramps, isreal rrhea and weight loss following a GI illness contracted during a trip to [facility]. He reports that 2 years ago he was traveling in [facility] and he had some suspicious seafood. He develo ps profound bloody diarrhea with severe abdominal pain. He was hospitalized in [facility] and w as treated with IV [...] bradycardia S/P dual chamber permanent pacemaker in ,' Past Surgical History Procedure Laterality Date Cervical [...] file Gets together: Not on file Attends latter day service: Not on file Active member of [...] Plan and Recommendations: 1. [facility] in [place] for stool studies as outlined above 2. If negative and symptoms persist, recommend capsule endoscopy (this could be completed b y local optical sales associate or he could return to [place] for this test) 3. Nortryptiline 25mg q HS with instruction to titrate to 50mg q HS after 2 weeks if tolera kevin Follow-Up: with local optical sales associate Counseling Time: I spent a total of 35 minutes with this patient, of which greater than 50 % of the time was spent in counseling. Specific issues that were discussed included a revie w of the disease, diagnostic tools that help in our management plans for the patient's chron ic diarrhea, abdominal cramping and weight loss and goals for treatment. Bridgette Rios MD [facility] documented in this e ncounter Plan [...]
--- OUTSIDE RECORDS SUMMARY | ~2020-04-15 | XMS | Encounter Summary ---
Demographics + + + | Address | [address] | | | [place] [address] | + + + | Home Phone [...] Providers + +------+ + | Care Dental Office Manager Name | Role | Phone [...] [address] | | | | | [place], | [place], | | | | | [place] [address] | [place] [address] | | | | | [phone] | [phone] | | | | | | | [...] W | | | | | | [place], | | | | | | [place] [address] | | | | | | [phone] | | | | | | | | +--------+ + + + + | 05/01/ | Procedure | Cardiology | | | | 2019 | visit | | | | +--------+ + + + + | 05/01/ | Office | Cardiology | Silvia, | | | 2019 | Visit | | [address] | | | | | | [place], | | | | | | [place] [address] | | | | | | [phone] | | | | | | | | +--------+ + + + + | 05/21/ | Implant | Cardiology | Daljit Singletary, | Remote Device | 2019 | Monitor | | [address] [place] | Interrogation | | | | | [place], | (Primary Dx); | | | | | [place] [address] | Pacemaker; | | | | | [phone] | Sinoatrial node | | | | [...] [address] | [place] | [phone] | | [facility] | | [address] | | | - LABORATORY [...]
--- OUTSIDE RECORDS SUMMARY | ~2020-04-15 | XMS | Encounter Summary ---
Demographics + + + | Address | [address] | | | [place] [address] | + + + | Home Phone [...] Team Providers + +------+ + | Care Packing And Stamping Machine Operator Name | Role | Phone [...] | SLEEP DISORDER [address] | [address] | Dx) | | | | [address] [place] | [place] | | | | | [place] [address] | [address] | | | | | [phone] | | | +--------+---------+ + + + [...] pillows obtained from: [facility] in [place] pressure is: 13 cm CPAP download shows [...] to go to [facility] in [place] to have them download his memory card. I will readjust his pressure, if necessary. I will call him with the results. He is to work toward wearing his CPAP 100% of the time he is asleep. I will follow up again in 1 month, sooner prn. Fifteen minutes were spent [id number], wi th the majority of time spent [...] W | | | | | | [place], | | | | | | [place] [address] | | | | | | [phone] | | | | | | | | +--------+ + + + + | 05/01/ | Procedure | Cardiology | | | | 2019 | visit | | | | +--------+ + + + + | 05/01/ | Office | Cardiology | Silvia, | | | 2019 | Visit | | [address] | | | | | | [place], | | | | | | [place] [address] | | | | | | [phone] | | | | | | | | +--------+ + + + + | 05/21/ | Implant | Cardiology | SunshinecherelleDaljit, | Remote Device | | 2019 | Monitor | | [address] [facility] | Interrogation | | | | | [place], | (Primary Dx); | | | | | [place] [address] | Pacemaker; | | | | | [phone] | Sinoatrial node | | | | [...]
--- OUTSIDE RECORDS SUMMARY | ~2020-04-15 | XMS | Encounter Summary ---
Demographics + + + | Address | [address] | | | [place] [address] | + + + | Home Phone [...] Providers + +------+ + | Care Emergency Crew Supervisor Name | Role | Phone [...] + + | 12/19/ | Telephone | [facility] | Kirk French | Triage (chronic IBS) | | 2020 | | [facility] | MD Bre[address] | | | | | [facility] [address] | [address] | | | | | [address] | [place] [address] | | | | | [place], [place] | [phone] | | | | | [address] | | | | | | [phone] | | | +--------+ + + + [...] | | | | | | [place] [address] | | | | | | [phone] | | | | | | | | +--------+ + + + + | 05/01/ | Procedure | Cardiology | | | | 2019 | visit | | | | +--------+ + + + + | 05/01/ | Office | Cardiology | Silvia, | | | 2019 | Visit | | PARISA Vernon [address] | | | | | | [place], | | | | | | [place] [address] | | | | | | [phone] | | | | | | | | +--------+ + + + + | 05/21/ | Implant | Cardiology | Daljit Singletary, | Remote Device | 2019 | Monitor | | [facility] | Interrogation | | | | | [address], | (Primary Dx); | | | | | [place] [address] | Pacemaker; | | | | | [phone] | Sinoatrial node | | | | | | dysfunction (HCC) | | | | | | with symptomatic | | | | | | bradycardia | +--------+ + + + + documented as of this encounter Visit Diagnoses Not on filedocumented in this encounter"
--- OUTSIDE RECORDS SUMMARY | ~2020-04-15 | XMS | Encounter Summary ---
Demographics + + + | Address | [address] | | | [place] [address] | + + + | Home Phone [...] Providers + +------+ + | Care Training Systems Officer Name | Role | Phone | [...] 2012 | | CARDIOLOGY [address] | ADOBE LAYER [address] [place] | | | | | [place], | [facility] [place] [facility] [place] | | | | | [place] [address] | [address] | | | | | [phone] | | | +--------+ + + + [...] W | | | | | | [place], | | | | | | [place] [address] | | | | | | [phone] | | | | | | | | +--------+ + + + + | 05/01/ | Procedure | Cardiology | | | | 2019 | visit | | | | +--------+ + + + + | 05/01/ | Office | Cardiology | Silvia, | | | 2019 | Visit | | [address] | | | | | | [place], | | | | | | [place] [address] | | | | | | [phone] | | | | | | | | +--------+ + + + + | 05/21/ | Implant | Cardiology | Daljit Singletary, | Remote Device | 2019 | Monitor | | [address] | Interrogation | | | | | [place], | (Primary Dx); | | | | | [place] [address] | Pacemaker; | | | | | [phone] | Sinoatrial node | | | | | | dysfunction (HCC) | | | | | | with symptomatic | | | | | | bradycardia | +--------+ + + + + documented as of this encounter Visit Diagnoses Not on filedocumented in this encounter"
--- OUTSIDE RECORDS SUMMARY | ~2020-04-15 | XMS | Encounter Summary ---
Demographics + + + | Address | [address] | | | [place] [address] | + + + | Home Phone [...] Providers + +------+ + | Care Food Assembler Commissary Kitchen Name | Role | Phone | + +------+ + | Kirk French MD | PCP | | + +------+ + Encounter Details +--------+---------+ + + + | Date | Type | Department | Care Team | Description | +--------+---------+ + + + | 12/24/ | Surgery | [facility] | Emmanuel Daniel MD | EGD | | 2018 | | MED CTR MP INTRA OP | [address], [place] | | | | | [address] | [address] [place], [place] | | | | | [place], [place] | [address] | | | | | [address] | | | | | | [phone] | | | +--------+---------+ + + + [...] + + + +---------+ + + | In[place]-3 Fatty | CAPS, one capsule by | [...] W | | | | | | [address] [place], | | | | | | [place] [address] | | | | | | [phone] | | | | | | | | +--------+ + + + + | 05/01/ | Procedure | Cardiology | | | | 2019 | visit | | | | +--------+ + + + + | 05/01/ | Office | Cardiology | Silvia, | | | 2019 | Visit | | PARISA Vernon W | | | | | | [place], | | | | | | [place] [address] | | | | | | [phone] | | | | | | | | +--------+ + + + + | 05/21/ | Implant | Cardiology | Daljit Singletary, | Remote Device | | 2019 | Monitor | | MD [address] | Interrogation | | | | | [place], | (Primary Dx); | | | | | [place] [address] | Pacemaker; | | | | | [phone] | Sinoatrial node | | | | [...] + + | Performed at: 01 - [facility] [address], | REFERENCE LAB | | [place], [place] [id number] Online Journalist: William Andrew MD, Phone: | [facility] | | [phone] | | + + + + + + + + | Performing | Address | City/State/Zipcode | Phone Number | | Organization | | | | + + + + + | REFERENCE LAB | [address] | [place], [place] | [phone] | | [facility] | [place]ar Cortez | [address] | | + + + + + [...] [address] | [place] | [phone] | | [facility] | | [address] | | | - LABORATORY | | [...] ST. | [address] | [place] | [phone] | | [facility] | | [address] | | | - LABORATORY | | [...] + | [address] | [address] | [place] | [phone] | | [facility] | | [address] | | | - LABORATORY | | [...] + + | Performed at: 01 - [facility] [address], | REFERENCE LAB | | [place], [place] [id number] Online Journalist: William Andrew MD, Phone: | [facility] | | [phone] | | + + + + + + + + | Performing | Address | City/State/Zipcode | Phone Number | | Organization | | | | + + + + + | REFERENCE LAB | [address] | [place], [place] | [phone] | | [facility] | Drive [facility] | [address] | | + + + + + [...] [address] | [place] | [phone] | | [facility] | | [address] | | | - LABORATORY | | [...] [address] | [place] | [phone] | | [facility] | | [address] | | | - LABORATORY | | [...] | [address] | [place] | [phone] | | [facility] | | [address] | | | - LABORATORY | | [...] [address] | [place] | [phone] | | [facility] | | [address] | | | - LABORATORY | | [...] + | [facility] | [address] | [place] | [phone] | | [facility] | | [address] | | | - LABORATORY | | | | + + + + + EGD (12/24/2017 1:19 PM PST) + + | Specimen | + + | | + + + + -+ | Narrative | Performed At | + + -+ | | [facility] | | GastroenterologyPatient Name: Moe SanchezProcedure Date: 12/24/2017 | [facility] | | 1:19 PMMRN: [id number] #: [id number] of : | | | 1960dmit Type: AmbulatoryAge: 57[facility]Gender: MaleNote | | | Status: FinalizedAttending MD: Emmanuel Daniel , MDProcedure: | | | Upper GI endoscopyIndications: Diarrhea, Weight | | | lossProviders: Emmanuel Daniel MD, Maria Isabel Morris RN, | | | Kim Hicks, Imaging Scheduler, Jarett | | | Sapna Barakat MD [...] the anesthesiologist and | | | the radiological technician in the endoscopy suite. Mental Status [...] | clinic for pathology results in 1 week.Emamnuel Daniel MD12/24/2017 | | | 2:01:38 PMThis report has been signed electronically.Number of | | | Addenda: 0Note Initiated On: 12/24/2017 1:19 PMTotal Procedure Duration: | | | 0 hours 5 minutes 9 seconds Scope In: 1:26:04 PMScope Out: 1:31:13 PM | | | [facility], [address] [place] [address] | | | [place] [address] | | | - Discharge patient to [...] |Scope Out: 1:31:13 PM | | | [facility], [address] [place] [address] | | | [address] | | + + -+ + +---------+ [...] 12/24/2017 | [facility] | | 1:17 PMMRN: [id number] #: [id number] of : | | | 9Admit Type: AmbulatoryAge: 57Room: [facility] 01Gender: MaleNote | | | Status: FinalizedAttending MD: Emmanuel Daniel [facility]: | | | ColonoscopyIndications: Clinically significant diarrhea of | | | unexplained originProviders: Emmanuel Daniel MD, Maria Isabel | | | Arturo, RN, Kim Hicks, Imaging Scheduler, | | | Jarett Barakat MD (Anesthesia [...] | | | the anesthesiologist and the radiological technician in the endoscopy suite. | | [...] [facility] | | | [facility], [address] [place] [address] | | | [phone] | | | - Await pathology results. [...] |Scope Out: 1:48:57 PM | | | [facility], [facility] [address] [place], [place] | | | [address] | | + + -+ + +---------+ [...] | colonic mucosa with focal adenomatous change. CLR:[facility]:C2NR | | | GROSS DESCRIPTION: Received [...] | | cm, submitted, all in (D1). ka:CLR:[facility] ADDITIONAL NOTES: | | | Immunohistochemical studies were performed on this case with the | | | appropriate positive controls that react as expected. This test was | | | developed and its performance characteristics determined by [facility] | | | [facility]. It has not been cleared or approved by the U.S. Food | | | and Drug Administration. The FDA has determined that such clearance | | | or approval is not necessary. This test is used for clinical | | | purposes. It should not be regarded as investigational or for | | | research. [facility] is certified under the Clinical | | | Laboratory Improvement Amendments of 1988 (CLIA) as qualified to | | | perform high complexity clinical laboratory testing. This assay | | | has not been validated for specimens that have been decalcified. | | | PERFORMING LABORATORY: Tissue processing and slide preparation were | | | performed by [facility], [address], [facility] | | | [place] [address] (Tool Honing Machine Set Up Operator: Evan Frausto M.D. CLIA#: | | | [id number]). Professional interpretation was performed by [facility] | | | [facility], [address], [place] [address] | | | (Tool Honing Machine Set Up Operator: Evan Frausto M.D.; CLIA#: [id number]). | | | Diagnostician: Rafael Bales MD [...]
--- OUTSIDE RECORDS SUMMARY | ~2020-04-15 | XMS | Encounter Summary ---
Demographics + + + | Address | [address] [place] [address] [address] | | | [place] [address] | + + + | Home Phone [...] [place] | | | | | [address] | | + + + + + Care Team Providers + +------+ + | Care Electromatic Typist Name | Role | Phone | + [...] | | Center at [facility] [address] | MD [address] | | | | | [address] | [place], [place] | | | | | Mailcode: [place] | [address] | | | | | [facility] and | [phone] | | | | | [place] [address] | | | | | | [place], [place] | | | | | | [address] | | | | | | [phone] | | | +--------+ + + + [...]
--- OUTSIDE RECORDS SUMMARY | ~2020-04-15 | XMS | Encounter Summary ---
Demographics + + + | Address | [address] | | | [place] [address] | + + + | Home Phone [...] Team Providers + +------+ + | Care Chisel Mortiser Operator Name | Role | Phone | [...] Provider Unknown | | | | | [place], [place] | [phone] | | | | | [address] | | | | | | [phone] | | | +--------+ + + + [...] + + + +---------+ + + | [place]-3 Fatty | CAPS, one capsule by | [...] | | | | | | [place] [address] | | | | | | [phone] | | | | | | | | +--------+ + + + + | 05/01/ | Procedure | Cardiology | | | | 2019 | visit | | | | +--------+ + + + + | 05/01/ | Office | Cardiology | Silvia, | | | 2019 | Visit | | PARISA Vernon W | | | | | | [place], | | | | | | [place] [address] | | | | | | [phone] | | | | | | | | +--------+ + + + + | 05/21/ | Implant | Cardiology | Daljit Singletary, | Remote Device | 2019 | Monitor | | [address] [place] | Interrogation | | | | | [place], | (Primary Dx); | | | | | [place] [address] | Pacemaker; | | | | | [phone] | Sinoatrial node | | | | [...]
--- OUTSIDE RECORDS SUMMARY | ~2020-04-15 | XMS | Encounter Summary ---
Demographics + + + | Address | [address] | | | [place] [address] | + + + | Home Phone [...] Team Providers + +------+ + | Care Counseling Psychologist Name | Role | Phone | [...] | Telephone | [facility] [place] | [place], | LABS | | 2019 | | CARDIOLOGY [address] | Janeen CAREER DEVELOPMENT SPECIALIST [address] | | | | | [place], | [place], | | | | | [place] [address] | [place] [address] | | | | | [phone] | [phone] | | | | | | | [...] | | | | | | [place] [address] | | | | | | [phone] | | | | | | | | +--------+ + + + + | 05/01/ | Procedure | Cardiology | | | | 2020 | visit | | | | +--------+ + + + + | 05/01/ | Office | Cardiology | [place], | | | 2019 | Visit | | PARISA Vernon W | | | | | | [place], | | | | | | [place] [address] | | | | | | [phone] | | | | | | | | +--------+ + + + + | 05/21/ | Implant | Cardiology | Daljit Singletary, | Remote Device | | 2019 | Monitor | | [address] [place] | Interrogation | | | | | [place], | (Primary Dx); | | | | | [place] [address] | Pacemaker; | | | | | [phone] | Sinoatrial node | | | | [...]
--- OUTSIDE RECORDS SUMMARY | ~2020-04-15 | XMS | Encounter Summary ---
Demographics + + + | Address | [address] | | | [place] [address] | + + + | Home Phone [...] Providers + +------+ + | Care Powder Guard Name | Role | Phone | + [...] + + | 08/24/ | Office | [facility] | Silvia, | Ascending thoracic | | 2018 | Visit | CARDIOLOGY [address] | PARISA Vernon [address] | aortic aneurysm | | | | [place], | [place], | ([facility]) (Primary Dx); | | | | [place] [address] | [place] [address] | Syncope, unspecified | | | | [phone] | [phone] | syncope type; | | | | | | Hypertension, | | | | | | unspecified type; | | | | | | Coronary artery | | | | | | disease involving | | | | | | [place] coronary | | | | | | artery of [place] | | | | | | heart [...] of non-critical coronary artery d isease involving [place] coronary artery of [place] heart without angina pectoris, essential h ypertension, [...] Preventative health care Coronary artery disease involving [place] coronary artery of [place] heart without angina pectoris Cannabis abuse, daily [...] by mouth Daily. 90 tabl et 1 [facility] Natural Products (OSTEO [...] 3RD DOSE, CALL 911 100 tablet 3 Walker-3 Fatty Acids (SALMON OIL-1000 PO) CAPS, one [...] now present Confirmed by HIREN WINKLER, ANGELA ([id number]) on 07/28/2018 6:03:35 AM LAB RESULTS reviewed [...] 157 04/11/2018 I reviewed records from [facility] for emergency department visit o n [...] to go back in 3 days to [place] for an attempt of ablation under general [...] He is in class II of the [place] Heart Association f unctional class. There are [...] subsided. 2. Non-critical Coronary artery disease involving [place] coronary artery of [place] heart [facility] angina pectoris: A. Normal exercise sestamibi [...] cannot completely be ruled out . D. [facility] 12/25/13, shows non critical coronary artery [...] this chart may have been created with 2can voice recognition software. Occasi onal wrong-word or [...] | | | | | | [place] [address] | | | | | | [phone] | | | | | | | | +--------+ + + + + | 05/01/ | Procedure | Cardiology | | | | 2019 | visit | | | | +--------+ + + + + | 05/01/ | Office | Cardiology | Silvia, | | | 2019 | Visit | | PARISA Vernon [address] | | | | | | [place], | | | | | | [place] [address] | | | | | | [phone] | | | | | | | | +--------+ + + + + | 05/21/ | Implant | Cardiology | Daljit Singletary, | Remote Device | | 2019 | Monitor | | [address] [place] | Interrogation | | | | | [place], | (Primary Dx); | | | | | [place] [address] | Pacemaker; | | | | | [phone] | Sinoatrial node | | | | [...] + + | Coronary artery disease involving [place] coronary artery of [place] heart without | | angina pectoris | [...]
--- OUTSIDE RECORDS SUMMARY | ~2020-04-15 | XMS | Encounter Summary ---
Demographics + + + | Address | [address] | | | [place] [address] | + + + | Home Phone [...] Providers + +------+ + | Care Belt Maker Name | Role | Phone [...] + + | 04/12/ | Telephone | [facility] | Daljit Singletary, | Other (issues with | | 2017 | | CARDIOLOGY [address] | MD [address] [place] | low blood pressure | | | | [place], | [place], | and dizziness) | | | | [place] [address] | [place] [address] | | | | | [phone] | [phone] | | | | | | | [...] | | | | | | [place] [address] | | | | | | [phone] | | | | | | | [...] | | | | | | [place] [address] | | | | | | [phone] | | | | | | | | +--------+ + + + + | 05/21/ | Implant | Cardiology | Daljit Singletary, | Remote Device | 2019 | Monitor | | [address] [place] | Interrogation | | | | | [place], | (Primary Dx); | | | | | [place] [address] | Pacemaker; | | | | | [phone] | Sinoatrial node | | | | | | dysfunction (HCC) | | | | | | with symptomatic | | | | | | bradycardia | +--------+ + + + + documented as of this encounter Visit Diagnoses Not on filedocumented in this encounter"
--- OUTSIDE RECORDS SUMMARY | ~2020-04-15 | XMS | Encounter Summary ---
Demographics + + + | Address | [address] | | | [place] [address] | + + + | Home Phone [...] Team Providers + +------+ + | Care Project Manager Finance Name | Role | Phone | + [...] [address] | | | | | [place], | [place], | | | | | [place] [address] | [place] [address] | | | | | [phone] | [phone] | | | | | | | [...] | | | | | | [place] [address] | | | | | | [phone] | | | | | | | | +--------+ + + + + | 05/01/ | Procedure | Cardiology | | | | 2019 | visit | | | | +--------+ + + + + | 05/01/ | Office | Cardiology | [place] | | | 2019 | Visit | | Janeen, LANDSCAPE LABORER [address] | | | | | | [place], | | | | | | [place] [address] | | | | | | [phone] | | | | | | | | +--------+ + + + + | 05/21/ | Implant | Cardiology | Daljit Singletary, | Remote Device | | 2020 | Monitor | | MD [place] | Interrogation | | | | | [place], | (Primary Dx); | | | | | [place] [address] | Pacemaker; | | | | | [phone] | Sinoatrial node | | | | | | dysfunction (HCC) | | | | | | with symptomatic | | | | | | bradycardia | +--------+ + + + + documented as of this encounter Visit Diagnoses Not on filedocumented in this encounter"
--- OUTSIDE RECORDS SUMMARY | ~2020-04-15 | XMS | Encounter Summary ---
Demographics + + + | Address | [address] | | | [place] [address] | + + + | Home Phone [...] + +------+ + | Care Sales Representative Trainee Name | Role | Phone | + [...] + + | 06/06/ | Office | [facility] | Silvia, | Essential | | 2019 | Visit | CARDIOLOGY [address] | PARISA Vernon [address] | hypertension | | | | [place], | [place], | (Primary Dx); | | | | [place] [address] | [place] [address] | Sinoatrial node | | | | [phone] | [phone] | dysfunction (HCC) | | | | [...] encounter Patient Instructions Patient Instructions Julia Allen, Parts Identifier - 06/06/2019 2:15 PM PDT1. Take a [...] of -critical coronary artery dise ase involving [place]a'[place] coronary artery of asa'[place] heart without angina pectoris, essential hype rtension, [...] was seen in the emergency department at [facility] in [place] due to chest pain, no medication changes at that time. On 06/02/2019 he was seen here in the [facility] department with chest pain, irregular heart [...] 3RD DOSE, CALL 911 100 tablet 3 [place]-3 Fatty Acids (SALMON OIL-1000 PO) CAPS, one capsule by mouth daily twice daily ondansetron (ZOFRAN ODT) 4 mg disintegrating tablet Take 4 mg by mouth every 8 hours as needed for Nausea. ONE TOUCH DELICA LANCETS [facility] [...] RESULTS reviewed during visit today primarily from [facility]: LIPID Lab Results Component Value Date [...] BNP 48 06/02/2019 I reviewed records from [facility] for emergency department visit o n 06/02/2019 which is summarized in the HPI. RESULTS- I reviewed reports from [facility]: Ct Abdomen Pelvis W Contrast Result Date: [...] ASSESSMENT: 1. Non-critical Coronary artery disease involving asa'[place] coronary artery of asa'carsarmi[place] heart [facility] angina pectoris: A.Normal exercise sestamibi stress [...] performed by Dr Juan Diego Gambino at [facility] on 01/30/2013.Patient had spontaneous PVC'sfr om 3 [...] to go back in 3 days to [place] for an attempt of ablation under general [...] a normal stable device function. Estimated remaining [facility] longevity is 3.5 years. [...] visit, or sooner with concerns. Julia Clemente, Parts Identifier am acting as a scribe on behalf of, and in the presenc e of PARISA Lomas. - Reji Church 06/06/2019 15:10 Janeen Clemente ARNP, personally performed the services described in this documentati on, as scribed in my presence and it is both accurate and complete. -PARISA Lomas 06/06/2019 Portions of this chart may have been created with [employer] voice recognition software. Occasi onal wrong-word or [...] | | | | | | [place] [address] | | | | | | [phone] | | | | | | | | +--------+ + + + + | 05/01/ | Procedure | Cardiology | | | 2019 | visit | | | | +--------+ + + + + | 05/01/ | Office | Cardiology | Silvia, | | | 2019 | Visit | | PARISA Vernon [address] | | | | | | [place], | | | | | | [place] [address] | | | | | | [phone] | | | | | | | | +--------+ + + + + | 05/21/ | Implant | Cardiology | Sydni Singletary, | Remote Device | | 2019 | Monitor | | [address] [facility] | Interrogation | | | | | [place], | (Primary Dx); | | | | | [place] [address] | Pacemaker; | | | | | [phone] | Sinoatrial node | | | | [...] MD | | | | | | ([id number]) on 06/06/2019 | | | | | [...]
--- OUTSIDE RECORDS SUMMARY | ~2020-04-15 | XMS | Encounter Summary ---
Demographics + + + | Address | [address] | | | [place] [address] | + + + | Home Phone [...] Providers + +------+ + | Care Claim Manager Name | Role | Phone | [...] 2016 | | CARDIOLOGY [address] | DESKTOP SUPPORT ASSOCIATE [address] [place] | | | | | [place], | [place], [place] | | | | | [place] [address] | [address] | | | | | [phone] | | | +--------+--------+ + + + [...] W | | | | | | [place], | | | | | | [place] [address] | | | | | | [phone] | | | | | | | | +--------+ + + + + | 05/01/ | Procedure | Cardiology | | | | 2019 | visit | | | | +--------+ + + + + | 05/01/ | Office | Cardiology | Silvia, | | | 2019 | Visit | | PARISA Vernon W | | | | | | [place], | | | | | | [place] [address] | | | | | | [phone] | | | | | | | | +--------+ + + + + | 05/21/ | Implant | Cardiology | Daljit Singletary, | Remote Device | | 2019 | Monitor | | [address] [facility] | Interrogation | | | | | [place], | (Primary Dx); | | | | | [place] [address] | Pacemaker; | | | | | [phone] | Sinoatrial node | | | | | | dysfunction (HCC) | | | | | | with symptomatic | | | | | | bradycardia | +--------+ + + + + documented as of this encounter Visit Diagnoses Not on filedocumented in this encounter"
--- OUTSIDE RECORDS SUMMARY | ~2020-04-15 | XMS | Encounter Summary ---
Demographics + + + | Address | [address] | | | [place] [address] | + + + | Home Phone [...] Team Providers + +------+ + | Care Streetcar Repairer Name | Role | Phone | [...] | | CARDIOLOGY [address] | SAND SLINGER [address] [place] | | | | | [place], | [place] [facility] [place] | | | | | [place] [address] | [address] | | | | | [phone] | | | +--------+ + + + [...] | | | | | | [place] [address] | | | | | | [phone] | | | | | | | [...] | | | | | | [place] [address] | | | | | | [phone] | | | | | | | | +--------+ + + + + | 05/21/ | Implant | Cardiology | Daljit Singletary, | Remote Device | 2019 | Monitor | | MD [address] [place] | Interrogation | | | | | [place], | (Primary Dx); | | | | | [place] [address] | Pacemaker; | | | | | [phone] | Sinoatrial node | | | | | | dysfunction (HCC) | | | | | | with symptomatic | | | | | | bradycardia | +--------+ + + + + documented as of this encounter Visit Diagnoses Not on filedocumented in this encounter"
--- OUTSIDE RECORDS SUMMARY | ~2020-04-15 | XMS | Encounter Summary ---
Demographics + + + | Address | [address] | | | [place] [address] | + + + | Home Phone [...] Providers + +------+ + | Care Residential Support Worker Name | Role | Phone | [...] + | 01/03/ | Office | [facility] | [place]via, | CAD (coronary artery | | 2012 | Visit | CARDIOLOGY [address] | Janeen, AIR CREW OFFICER [address] | disease) (Primary | | | | [place], | [place], | Dx); Bradycardia; | | | | [place] [address] | [place] [address] | HTN (hypertension); | | | | [phone] | [phone] | Lightheadedness | | | | | [...] tablet Take 1,000 mg by mouth Daily. [place]-3 Fatty Acids (SALMON OIL-1000 PO) CAPS, one [...] department at [facility] in [place], [place]. EKG showed normal s inus rhythm [...] Refer patient to an electrophysiology specialist in [place] for further evaluation for P VC's ablation. I have given verbal instructions and written material for patient to read mo re about the procedure. 2. Check blood pressure and pulse twice daily for two weeks and return the log to our offic e. 3. Followup appointment after patient's appointment with clinical lab specialist/ablation. IJaneen ARNP, saw this patient under the direct supervision of Daljit Singletary MD Portions of this report were transcribed using voice recognition software. Every effort wa s made to ensure accuracy; however, inadvertent computerized director of event sales errors may be pre sent. documented in [...] | | | | | | [place] [address] | | | | | | [phone] | | | | | | | [...] | | | | | | [place] [address] | | | | | | [phone] | | | | | | | | +--------+ + + + + | 05/21/ | Implant | Cardiology | Daljit Singletary, | Remote Device | 2019 | Monitor | | [address] [place] | Interrogation | | | | | [place], | (Primary Dx); | | | | | [place] [address] | Pacemaker; | | | | | [phone] | Sinoatrial node | | | | | | dysfunction (HCC) | | | | | | with symptomatic | | | | | | bradycardia | +--------+ + + + + documented as of this encounter Visit Diagnoses + + | Diagnosis | + + | CAD (coronary artery disease) - Primary Coronary atherosclerosis of unspecified type | | of vessel, [place] or graft | + + | Bradycardia Other specified cardiac dysrhythmias | + + | HTN (hypertension) Unspecified essential hypertension | + + | Lightheadedness Dizziness and giddiness | + + documented in this encounter
--- OUTSIDE RECORDS SUMMARY | ~2020-04-15 | XMS | Encounter Summary ---
Demographics + + + | Address | [address] | | | [place] [address] | + + + | Home Phone [...] Providers + +------+ + | Care Adult High School Instructor Name | Role | Phone [...] + + | 07/13/ | Telephone | [facility] | Kirk French | Referral Question | | 2019 | | [facility] | MD Bre[address] | | | | | PR[address] | [address] | | | | | [address] | [place] [address] | | | | | [place], [place] | [phone] | | | | | [address] | | | | | | [phone] | | | +--------+ + + + [...] | | | | | | [place] [address] | | | | | | [phone] | | | | | | | [...] | | | | | | [place] [address] | | | | | | [phone] | | | | | | | | +--------+ + + + + | 05/21/ | Implant | Cardiology | Daljit Singletary, | Remote Device | | 2019 | Monitor | | [address] [place] | Interrogation | | | | | [place], | (Primary Dx); | | | | | [place] [address] | Pacemaker; | | | | | [phone] | Sinoatrial node | | | | | | dysfunction (HCC) | | | | | | with symptomatic | | | | | | bradycardia | +--------+ + + + + documented as of this encounter Visit Diagnoses Not on filedocumented in this encounter"
--- OUTSIDE RECORDS SUMMARY | ~2020-04-15 | XMS | Encounter Summary ---
Demographics + + + | Address | [address] | | | [place] [address] | + + + | Home Phone [...] Team Providers + +------+ + | Care Directory Compiler Name | Role | Phone | + [...] [place] | | | | | | [address] | | | | | | [phone] | | | +--------+ + + + [...] W | | | | | | [place], | | | | | | [place] [address] | | | | | | [phone] | | | | | | | | +--------+ + + + + | 05/01/ | Procedure | Cardiology | | | | 2019 | visit | | | | +--------+ + + + + | 05/01/ | Office | Cardiology | Silvia, | | | 2019 | Visit | | PARISA Vernon W | | | | | | [place], | | | | | | [place] [address] | | | | | | [phone] | | | | | | | | +--------+ + + + + | 05/21/ | Implant | Cardiology | Daljit Singletary, | Remote Device | | 2019 | Monitor | | [facility] | Interrogation | | | | | [place], | (Primary Dx); | | | | | [place] [address] | Pacemaker; | | | | | [phone] | Sinoatrial node | | | | | | dysfunction (HCC) | | | | | | with symptomatic | | | | | | bradycardia | +--------+ + + + + documented as of this encounter Visit Diagnoses Not on filedocumented in this encounter"
--- OUTSIDE RECORDS SUMMARY | ~2020-04-15 | XMS | Encounter Summary ---
Demographics + + + | Address | [address] | | | [place] [address] | + + + | Home Phone [...] Providers + +------+ + | Care Armature Winder Name | Role | Phone | [...] CARDIOLOGY [address] | MD [address] | Interrogation | | | | [place], | [place], | (Primary Dx); | | | | [place] [address] | [place] [address] | Pacemaker; | | | | [phone] | [phone] | Sinoatrial node | | | | [...] | | | | | | [place] [address] | | | | | | [phone] | | | | | | | | +--------+ + + + + | 05/01/ | Procedure | Cardiology | | | | 2019 | visit | | | | +--------+ + + + + | 05/01/ | Office | Cardiology | Silvia, | | | 2019 | Visit | | PARISA Vernon W | | | | | | [place], | | | | | | [place] [address] | | | | | | [phone] | | | | | | | | +--------+ + + + + | 05/21/ | Implant | Cardiology | Daljit Singletary, | Remote Device | 2019 | Monitor | | MD Sim [facility] | Interrogation | | | | | [place], | (Primary Dx); | | | | | [place] [address] | Pacemaker; | | | | | [phone] | Sinoatrial node | | | | [...]
--- OUTSIDE RECORDS SUMMARY | ~2020-04-15 | XMS | Encounter Summary ---
Demographics + + + | Address | [address] | | | [place] [address] | + + + | Home Phone [...] Providers + +------+ + | Care Perinatal Technician Name | Role | Phone | [...] + | 02/16/ | Telephone | [facility] | Silvia, | Other (concerned | | 2012 | | CARDIOLOGY [address] | [place] [address] | about palpitations) | | | | [place], | [place], | | | | | [place] [address] | [place] [address] | | | | | [phone] | [phone] | | | | | | | [...] W | | | | | | [place], | | | | | | [place] [address] | | | | | | [phone] | | | | | | | | +--------+ + + + + | 05/01/ | Procedure | Cardiology | | | | 2019 | visit | | | | +--------+ + + + + | 05/01/ | Office | Cardiology | Silvia, | | | 2019 | Visit | | PARISA [place] [address] | | | | | | [place], | | | | | | [place] [address] | | | | | | [phone] | | | | | | | | +--------+ + + + + | 05/21/ | Implant | Cardiology | Daljit Singletary, | Remote Device | | 2019 | Monitor | | [address] [facility] | Interrogation | | | | | [place], | (Primary Dx); | | | | | [place] [address] | Pacemaker; | | | | | [phone] | Sinoatrial node | | | | | | dysfunction (HCC) | | | | | | with symptomatic | | | | | | bradycardia | +--------+ + + + + documented as of this encounter Visit Diagnoses Not on filedocumented in this encounter"
--- OUTSIDE RECORDS SUMMARY | ~2020-04-15 | XMS | Encounter Summary ---
Demographics + + + | Address | [address] | | | [place] [address] | + + + | Home Phone [...] Providers + +------+ + | Care Clinical Specialist Medical Device Name | Role | Phone | + +------+ + PCP | Unavailable | + +------+ + Encounter Details +--------+ + + + + | Date | Type | Department | Care Team | Description | +--------+ + + + + | 02/21/ | [facility] | [facility] | Cristy Braun | | | 2008 | Encounter | MED CTR EMERGENCY | MD Ronald [address] | | | | | [place] [address] | [facility], | | | | | [place] | [place] [address] | | | | | [address] | [phone] | | | | | [phone] | | | +--------+ + + + [...] W | | | | | | [place], | | | | | | [place] [address] | | | | | | [phone] | | | | | | | | +--------+ + + + + | 05/01/ | Procedure | Cardiology | | | | 2019 | visit | | | | +--------+ + + + + | 05/01/ | Office | Cardiology | Silvia | | | 2019 | Visit | | PARISA Vernon [address] | | | | | | [place], | | | | | | [place] [address] | | | | | | [phone] | | | | | | | | +--------+ + + + + | 05/21/ | Implant | Cardiology | Daljit Singletary, | Remote Device | 2019 | Monitor | | MD [address] [place] | Interrogation | | | | | [place], | (Primary Dx); | | | | | [place] [address] | Pacemaker; | | | | | [phone] | Sinoatrial node | | | | | | dysfunction (HCC) | | | | | | with symptomatic | | | | | | bradycardia | +--------+ + + + + documented as of this encounter Visit Diagnoses Not on filedocumented in this encounter"
--- OUTSIDE RECORDS SUMMARY | ~2020-04-15 | XMS | Encounter Summary ---
Demographics + + + | Address | [address] | | | [place] [address] | + + + | Home Phone [...] Team Providers + +------+ + | Care Lighthouse Keeper Name | Role | Phone | [...] | | | | | region | [address] | | | | | | Procedures | [address] | | | | | | [place] | [place], [place] | | | | | | Myelography | [address] | | | | | | Lumbar Spine | Phone: | | | | | | | [phone] | | | | | | | Fax: | | | | | | | [phone] | | +--------+--------+ + + + + [...] | | | | | Spinal | Ipa | | | | | | stenosis, | Sofía, MD | | | | | | lumbar | [address] | | | | | | region | [address] | | | | | | Procedures | [address] | | | | | | [place] | [place], [place] | | | | | | Myelography | [address] | | | | | | Lumbar Spine | Phone: | | | | | | | [phone] | | | | | | | Fax: | | | | | | | [phone] | | +--------+--------+ + + + + Encounter Details +--------+ + + + + | Date | Type | Department | Care Team | Description | +--------+ + + + + | 04/07/ | Hospital | [facility] | Pia Akhtar | Spinal stenosis, | | 2016 | Encounter | MED CTR [address] | MD Sofía [address] | lumbar region | | | | [place], | [address] | | | | | [place] [address] | [place] [address] | | | | | [phone] | [phone] | | | | | | | [...] + + +---------+ + + | [place]-3 Fatty | CAPS, one capsule by [...] W | | | | | | [place], | | | | | | [place] [address] | | | | | | [phone] | | | | | | | | +--------+ + + + + | 05/01/ | Procedure | Cardiology | | | | 2019 | visit | | | | +--------+ + + + + | 05/01/ | Office | Cardiology | Silvia, | | | 2019 | Visit | | [address]ISA [place] W | | | | | | [place], | | | | | | [place] [address] | | | | | | [phone] | | | | | | | | +--------+ + + + + | 05/21/ | Implant | Cardiology | Daljit Singletary, | Remote Device | | 2019 | Monitor | | [address] [place] | Interrogation | | | | | [place], | (Primary Dx); | | | | | [place] [address] | Pacemaker; | | | | | [phone] | Sinoatrial node | | | | [...] + + | Performing | Address | City[facility] | Phone Number | | Organization | | | | + +---------+ + + | [facility] | | | | + +---------+ + + documented in this encounter Visit Diagnoses + + | Diagnosis | + + | Spinal stenosis, lumbar region | + + documented in this encounter"
--- OUTSIDE RECORDS SUMMARY | ~2020-04-15 | XMS | Encounter Summary ---
Demographics + + + | Address | [address] [place] [address] [address] | | | [place] [address] | + + + | Home Phone [...] [place] | | | | | [address] | | + + + + + Care Team Providers + +------+ + | Care Creative Guru Name | Role | Phone | + [...] | | 2019 | | Center at [facility] [address] | MD [address] | | | | | [address] | [place], [place] | | | | | Mailcode: Center | [address] | | | | | [facility] and | [phone] | | | | | [facility] 2 | | | | | | [place], [place] | | | | | | [address] | | | | | | [phone] | | | +--------+ + + + [...]
--- OUTSIDE RECORDS SUMMARY | ~2020-04-15 | XMS | Encounter Summary ---
Demographics + + + | Address | [address] | | | [place] [address] | + + + | Home Phone [...] Providers + +------+ + | Care Account Service Representative Name | Role | Phone [...] 2017 | | CARDIOLOGY [address] | FOREST [employer] [address] | | | | | [place], | [place], [place] | | | | | [place] [address] | [address] | | | | | [phone] | | | +--------+--------+ + + + [...] W | | | | | | [place], | | | | | | [place] [address] | | | | | | [phone] | | | | | | | | +--------+ + + + + | 05/01/ | Procedure | Cardiology | | | | 2019 | visit | | | | +--------+ + + + + | 05/01/ | Office | Cardiology | Silvia, | | | 2019 | Visit | | [address] | | | | | | [place], | | | | | | [place] [address] | | | | | | [phone] | | | | | | | | +--------+ + + + + | 05/21/ | Implant | Cardiology | Daljit Singletary, | Remote Device | | 2019 | Monitor | | [facility] | Interrogation | | | | | [place], | (Primary Dx); | | | | | [place] [address] | Pacemaker; | | | | | [phone] | Sinoatrial node | | | | | | dysfunction (HCC) | | | | | | with symptomatic | | | | | | bradycardia | +--------+ + + + + documented as of this encounter Visit Diagnoses Not on filedocumented in this encounter"
--- OUTSIDE RECORDS SUMMARY | ~2020-04-15 | XMS | Encounter Summary ---
Demographics + + + | Address | [address] | | | [place] [address] | + + + | Home Phone [...] Providers + +------+ + | Care Substation Operator Name | Role | Phone | + +------+ + PCP | Unavailable | + +------+ + Encounter Details +--------+ + + + + | Date | Type | Department | Care Team | Description | +--------+ + + + + | 06/12/ | [facility] | [facility] | Hunter Antunez, | | | 2007 - | Encounter | MED CTR ICU [address] | MD [address] | | | | | [place], | [place] | | | 06/15/ | | [place] [address] | [address] | | | 2007 | | [phone] | | | +--------+ + + + [...] W | | | | | | [place], | | | | | | [place] [address] | | | | | | [phone] | | | | | | | | +--------+ + + + + | 05/01/ | Procedure | Cardiology | | | | 2019 | visit | | | | +--------+ + + + + | 05/01/ | Office | Cardiology | Silvia | | | 2019 | Visit | | [address] W | | | | | | [place], | | | | | | [place] [address] | | | | | | [phone] | | | | | | | | +--------+ + + + + | 05/21/ | Implant | Cardiology | Daljit Singletary, | Remote Device | 2019 | Monitor | | MD Sim [address] [place] | Interrogation | | | | | [facility], | (Primary Dx); | | | | | [place] [address] | Pacemaker; | | | | | [phone] | Sinoatrial node | | | | | | dysfunction (HCC) | | | | | | with symptomatic | | | | | | bradycardia | +--------+ + + + + documented as of this encounter Visit Diagnoses Not on filedocumented in this encounter"
--- OUTSIDE RECORDS SUMMARY | ~2020-04-15 | XMS | Encounter Summary ---
Demographics + + + | Address | [address] | | | [place] [address] | + + + | Home Phone [...] Providers + +------+ + | Care Solar Maintenance Technician Name | Role | Phone | [...] | 03/07/ | Telephone | [facility] | Daljit Singletary, | Results ([facility]) | | 2020 | | CARDIOLOGY [address] | MD [address] [place] | | | | | [place], | [place], | | | | | [place] [address] | [place] [address] | | | | | [phone] | [phone] | | | | | | | [...] | | | | | | [place] [address] | | | | | | [phone] | | | | | | | | +--------+ + + + + | 05/01/ | Procedure | Cardiology | | | | 2019 | visit | | | | +--------+ + + + + | 05/01/ | Office | Cardiology | [place], | | | 2019 | Visit | | PARISA Vernon [address] | | | | | | [place], | | | | | | [place] [address] | | | | | | [phone] | | | | | | | | +--------+ + + + + | 05/21/ | Implant | Cardiology | Daljit Singletary, | Remote Device | 2019 | Monitor | | [address] [place] | Interrogation | | | | | [place], | (Primary Dx); | | | | | [place] [address] | Pacemaker; | | | | | [phone] | Sinoatrial node | | | | | | dysfunction (HCC) | | | | | | with symptomatic | | | | | | bradycardia | +--------+ + + + + documented as of this encounter Visit Diagnoses Not on filedocumented in this encounter"
--- OUTSIDE RECORDS SUMMARY | ~2020-04-15 | XMS | Encounter Summary ---
Demographics + + + | Address | [address] | | | [place] [address] | + + + | Home Phone [...] Team Providers + +------+ + | Care Orbitread Operator Name | Role | Phone | + +------+ + PCP | Unavailable | + +------+ + Encounter Details +--------+ + + + + | Date | Type | Department | Care Team | Description | +--------+ + + + + | 11/05/ | [facility] | [facility] | Naresh Mckeon | | | 2009 | Encounter | MED CTR SLEEP | MD Chaya [address] | | | | | CENTER [address] | [place] | | | | | [place] | [place] [address] | | | | | [address] | [phone] | | | | | [phone] | | | +--------+ + + + [...] W | | | | | | [place], | | | | | | [place] [address] | | | | | | [phone] | | | | | | | | +--------+ + + + + | 05/01/ | Procedure | Cardiology | | | | 2019 | visit | | | | +--------+ + + + + | 05/01/ | Office | Cardiology | [place] | | | 2019 | Visit | | [address] [address] | | | | | | [place], | | | | | | [place] [address] | | | | | | [phone] | | | | | | | | +--------+ + + + + | 05/21/ | Implant | Cardiology | Daljit Singletary, | Remote Device | 2019 | Monitor | | MD [address] [place] | Interrogation | | | | | [place], | (Primary Dx); | | | | | [place] [address] | Pacemaker; | | | | | [phone] | Sinoatrial node | | | | | | dysfunction (HCC) | | | | | | with symptomatic | | | | | | bradycardia | +--------+ + + + + documented as of this encounter Visit Diagnoses Not on filedocumented in this encounter"
--- OUTSIDE RECORDS SUMMARY | ~2020-04-15 | XMS | Encounter Summary ---
Demographics + + + | Address | [address] | | | [place] [address] | + + + | Home Phone [...] Team Providers + +------+ + | Care Joinery Patternmaker Name | Role | Phone | + +------+ + PCP | Unavailable | + +------+ + Encounter Details +--------+ + + + + | Date | Type | Department | Care Team | Description | +--------+ + + + + | 10/29/ | Hospital | [facility] | Pia Akhtar | | | 2003 | Encounter | CONVERSION DEP [address] | MD [address] | | | | | [address] | [address] | | | | | [place] | [place] [address] | | | | | [address] | [phone] | | | | | [phone] | | | +--------+ + + + [...] W | | | | | | [place], | | | | | | [place] [address] | | | | | | [phone] | | | | | | | | +--------+ + + + + | 05/01/ | Procedure | Cardiology | | | | 2019 | visit | | | | +--------+ + + + + | 05/01/ | Office | Cardiology | [place] | | | 2019 | Visit | | PARISA Vernon [address] | | | | | | [place], | | | | | | [place] [address] | | | | | | [phone] | | | | | | | | +--------+ + + + + | 05/21/ | Implant | Cardiology | Daljit Singletary, | Remote Device | 2019 | Monitor | | MD [address] [place] | Interrogation | | | | | [place], | (Primary Dx); | | | | | [place] [address] | Pacemaker; | | | | | [phone] | Sinoatrial node | | | | | | dysfunction (HCC) | | | | | | with symptomatic | | | | | | bradycardia | +--------+ + + + + documented as of this encounter Visit Diagnoses Not on filedocumented in this encounter"
--- OUTSIDE RECORDS SUMMARY | ~2020-04-15 | XMS | Encounter Summary ---
Demographics + + + | Address | [address] | | | [place] [address] | + + + | Home Phone [...] Providers + +------+ + | Care Hog Driver Name | Role | Phone | [...] unspecified | [address] | | | | | type | [address] | [place], | | | | | Procedures | [place], | [place] | | | | | [place] | [place] [address] | [address] | | | | | Stress Test | Phone: | Phone: | | | | | (Vasodilator | [phone] | [phone] | | | | | ) CHG | Fax: | Fax: | | | | | MYOCARDIAL | [phone] | [phone] | | | | | SPECT | | | | | | | MULTIPLE | | | | | | | STUDIES [place] | | | | | | | CV STRS TST | | | | | | | XERS&/OR RX | | | | | | | CONT ECG W/O | | | | | | | I&R [place] | | | | | | | [...] | type | [address] | [address] | | | | | Procedures | [place] | [place], | | | | | [place] | [place] | [place] [address] | | | | | | [address] | Phone: | | | | | | Phone: | [phone] | | | | | | [phone] | Fax: | | | | | | Fax: | [phone] | | | | | | [phone] | | +--------+ + + + + + Encounter Details +--------+---------+ + + + | Date | Type | Department | Care Team | Description | +--------+---------+ + + + | 06/27/ | Office | [facility] | Sydni Singletary, | Pacemaker | | 2017 | Visit | CARDIOLOGY [address] | [address] [facility] | reprogramming/check | | | | [place], | [place], | DO NOT DELETE | | | | [place] [address] | [place] [address] | (Primary Dx); Chest | | | | [phone] | [phone] | pain, unspecified | | | | [...] of non-critical coronary artery d isease involving yankton coronary artery of [place]ankton heart without angina pectoris, essential h ypertension, [...] that time, patient has been seen at [place] emergency department on 018 for chest pain [...] Preventative health care Coronary artery disease involving yankton coronary artery of [place] heart without angina pectoris Cannabis abuse, daily [...] by mouth every evening 90 tablet 0 [facility] (OSTEO [...] 3RD DOSE, CALL 911 100 tablet 3 [place]-3 Fatty Acids (SALMON OIL-1000 PO) CAPS, one [...] RESULTS reviewed during visit today primarily from [facility]: LIPID Lab Results Component Value Date [...] to go back in 3 days to [employer] for an attempt of ablation under general [...] PVCs. 2. Non-critical Coronary artery disease involving yankton coronary artery of yankton heart [facility] angina pectoris: A. Normal exercise sestamibi stress test on 05/25/09. LVEF by [facility] ed SPECT was 53%. B. [...] cannot completely be ruled out . D. [facility] 12/25/13, shows non critical coronary [...] He is in a class I of [employer] functiona l class. There is [...] reviewed and edited this note. Allyson Curtis, Consular Officer 06/27/2018 I, Sydni Singletary MD, personally performed the services described in this documentation, as scribed in my presence and it is both accurate and complete. Allyson Curtis, Med Ass t 06/27/2018 14:15 Electronically signed by: Sydni Singletary MD [facility] 06/27/2018 Portions of this chart may have been created with [employer] voice recognition software. Occasi onal wrong-word or [...] | | | | | | [place] [address] | | | | | | [phone] | | | | | | | | +--------+ + + + + | 05/01/ | Procedure | Cardiology | | | | 2019 | visit | | | | +--------+ + + + + | 05/01/ | Office | Cardiology | [place], | | | 2019 | Visit | | [address] | | | | | | [place], | | | | | | [place] [address] | | | | | | [phone] | | | | | | | | +--------+ + + + + | 05/21/ | Implant | Cardiology | Sydni Singletary, | Remote Device | 2019 | Monitor | | [address] [place] | Interrogation | | | | | [place], | (Primary Dx); | | | | | [place] [address] | Pacemaker; | | | | | [phone] | Sinoatrial node | | | | [...] [place] | | | | | | ([id number]) on 06/27/2018 | | | | | [...]
--- OUTSIDE RECORDS SUMMARY | ~2020-04-15 | XMS | Encounter Summary ---
Demographics + + + | Address | [address] | | | [place] [address] | + + + | Home Phone [...] Providers + +------+ + | Care Corporate Director Of Human Resources Name | Role | Phone | + +------+ + PCP | Unavailable | + +------+ + Encounter Details +--------+ + + + + | Date | Type | Department | Care Team | Description | +--------+ + + + + | 05/28/ | [facility] | [facility] | Evan Gandara MD | | | 2008 | Encounter | MED CTR LABORATORY | [address] [facility] | | | | | [address] [place] | [place] | | | | | [place] | [address] | | | | | [address] | | | | | | [phone] | | | +--------+ + + + [...] W | | | | | | [place], | | | | | | [place] [address] | | | | | | [phone] | | | | | | | | +--------+ + + + + | 05/01/ | Procedure | Cardiology | | | | 2019 | visit | | | | +--------+ + + + + | 05/01/ | Office | Cardiology | [place] | | | 2019 | Visit | | [place] [address] | | | | | | [place], | | | | | | [place] [address] | | | | | | [phone] | | | | | | | | +--------+ + + + + | 05/21/ | Implant | Cardiology | Daljit Singletary, | Remote Device | 2019 | Monitor | | MD [address] [place] | Interrogation | | | | | [place], | (Primary Dx); | | | | | [place] [address] | Pacemaker; | | | | | [phone] | Sinoatrial node | | | | | | dysfunction (HCC) | | | | | | with symptomatic | | | | | | bradycardia | +--------+ + + + + documented as of this encounter Visit Diagnoses Not on filedocumented in this encounter"
--- OUTSIDE RECORDS SUMMARY | ~2020-04-15 | XMS | Encounter Summary ---
Demographics + + + | Address | [address] | | | [place] [address] | + + + | Home Phone [...] abdominal | [address] | [address], | | | | | pain | [address] | [address] | | | | | Chronic pain | 101 | [place], | | | | | syndrome | [place], [place] | [place] [address] | | | | | Procedures | [address] | Phone: | | | | | Office Visit | Phone: | [phone] | | | | | | [phone] | Fax: | | | | | | Fax: | [phone] | | | | | | [phone] | | +--------+--------+ + + + + Encounter Details +--------+---------+ + + + | Date | Type | Department | Care Team | Description | +--------+---------+ + + + | 12/02/ | Office | [facility] [place] | Emmanuel Daniel MD | Diarrhea, | | 2018 | Visit | GASTROENTEROLOGY | [address], [place] | unspecified type | | | | [address] | [address] [place], [place] | (Primary Dx); Weight | | | | [address] [place], [place] | [address] | loss, | | | | [address] | | unintentional; | | | | [phone] | | Generalized | | | | [...] | | | | | | [place] [address] | | | | | | [phone] | | | | | | | | +--------+ + + + + | 05/01/ | Procedure | Cardiology | | | | 2019 | visit | | | | +--------+ + + + + | 05/01/ | Office | Cardiology | Silvia, | | | 2019 | Visit | | PARISA Vernon [address] | | | | | | [place], | | | | | | [place] [address] | | | | | | [phone] | | | | | | | | +--------+ + + + + | 05/21/ | Implant | Cardiology | Daljit Singletary, | Remote Device | 2019 | Monitor | | [facility] | Interrogation | | | | | [place], | (Primary Dx); | | | | | [place] [address] | Pacemaker; | | | | | [phone] | Sinoatrial node | | | | [...]
--- OUTSIDE RECORDS SUMMARY | ~2020-04-15 | XMS | Encounter Summary ---
Demographics + + + | Address | [address] | | | [place] [address] | + + + | Home Phone [...] Providers + +------+ + | Care Property Coordinator Name | Role | Phone | + +------+ + | Michael Amanda DO | PCP | | + +------+ + Encounter Details +--------+ + + + + | Date | Type | Department | Care Team | Description | +--------+ + + + + | 07/30/ | Abstract | [facility] | Michael Amanda, | | | 2013 | | [facility] | DO [address] | | | | | [address] | [place] | | | | | [place] | [address] | | | | | [address] | | | | | | [phone] | | | +--------+ + + + [...] | | | | | | [place] [address] | | | | | | [phone] | | | | | | | | +--------+ + + + + | 05/01/ | Procedure | Cardiology | | | | 2019 | visit | | | | +--------+ + + + + | 05/01/ | Office | Cardiology | Silvia, | | | 2019 | Visit | | PARISA [place] [address] | | | | | | Avenue [place], | | | | | | [place] [address] | | | | | | [phone] | | | | | | | | +--------+ + + + + | 05/21/ | Implant | Cardiology | Daljit Singletary, | Remote Device | | 2019 | Monitor | | [address] | Interrogation | | | | | [place], | (Primary Dx); | | | | | [place] [address] | Pacemaker; | | | | | [phone] | Sinoatrial node | | | | [...] [address] | [place] | [phone] | | [facility] | | [address] | | | - LABORATORY | | | | + + + + + | [address] | [address] | [place] | | | [facility] | | [address] | | | - [...] | | | | | | | [place], | | | | | | External [...]
--- OUTSIDE RECORDS SUMMARY | ~2020-04-15 | XMS | Encounter Summary ---
Demographics + + + | Address | [address] | | | [place] [address] | + + + | Home Phone [...] Providers + +------+ + | Care Office Supervisor Name | Role | Phone | [...] [address] | | | | | | [place], [place] | (Fax) | | | | | [address] | | | | | | [phone] | | | +--------+ + + + [...] | | | | | | [place] [address] | | | | | | [phone] | | | | | | | | +--------+ + + + + | 05/01/ | Procedure | Cardiology | | | | 2019 | visit | | | | +--------+ + + + + | 05/01/ | Office | Cardiology | [place], | | | 2019 | Visit | | PARISA [place] [address] | | | | | | [place], | | | | | | [place] [address] | | | | | | [phone] | | | | | | | | +--------+ + + + + | 05/21/ | Implant | Cardiology | Daljit Singletary, | Remote Device | | 2019 | Monitor | | [address] | Interrogation | | | | | [place], | (Primary Dx); | | | | | [place] [address] | Pacemaker; | | | | | [phone] | Sinoatrial node | | | | | | dysfunction (HCC) | | | | | | with symptomatic | | | | | | bradycardia | +--------+ + + + + documented as of this encounter Visit Diagnoses Not on filedocumented in this encounter"
--- OUTSIDE RECORDS SUMMARY | ~2020-04-15 | XMS | Encounter Summary ---
Demographics + + + | Address | [address] | | | [place] [address] | + + + | Home Phone [...] + +------+ + | Care Entry Level Administrative Assistant Name | Role | Phone | + +------+ + PCP | Unavailable | + +------+ + Encounter Details +--------+ + + + + | Date | Type | Department | Care Team | Description | +--------+ + + + + | 06/03/ | Hospital | [facility] | | | | 2008 | Encounter | MED CTR EMERGENCY | | | | | | [place] [address] | | | | | | [place] | | | | | | [address] | | | | | | [phone] | | | +--------+ + + + [...] | | | | | | [place] [address] | | | | | | [phone] | | | | | | | | +--------+ + + + + | 05/01/ | Procedure | Cardiology | | | | 2019 | visit | | | | +--------+ + + + + | 05/01/ | Office | Cardiology | Silvia, | | | 2019 | Visit | | [address] | | | | | | [place], | | | | | | [place] [address] | | | | | | [phone] | | | | | | | | +--------+ + + + + | 05/21/ | Implant | Cardiology | Daljit Singletary, | Remote Device | 2019 | Monitor | | [address] [place] | Interrogation | | | | | [place], | (Primary Dx); | | | | | [place] [address] | Pacemaker; | | | | | [phone] | Sinoatrial node | | | | | | dysfunction (HCC) | | | | | | with symptomatic | | | | | | bradycardia | +--------+ + + + + documented as of this encounter Visit Diagnoses Not on filedocumented in this encounter"
--- OUTSIDE RECORDS SUMMARY | ~2020-04-15 | XMS | Encounter Summary ---
Demographics + + + | Address | [address] | | | [place] [address] | + + + | Home Phone [...] Providers + +------+ + | Care Painter Helper Sign Name | Role | Phone | + +------+ + PCP | Unavailable | + +------+ + Encounter Details +--------+ + + + + | Date | Type | Department | Care Team | Description | +--------+ + + + + | 06/14/ | [facility] | [facility] | Kennethshaistatesha Shaistakenneth, | | | 2008 - | Encounter | MED CTR MP INTRA OP | [address] | | | | | [address] | [address] [place], | | | 06/15/ | | [place] | [place] [address] | | | 2008 | | [address] | [phone] | | | | | [phone] | | | +--------+ + + + [...] W | | | | | | [place], | | | | | | [place] [address] | | | | | | [phone] | | | | | | | | +--------+ + + + + | 05/01/ | Procedure | Cardiology | | | | 2019 | visit | | | | +--------+ + + + + | 05/01/ | Office | Cardiology | [place]via, | | | 2019 | Visit | | PARISA Vernon [address] | | | | | | [place], | | | | | | [place] [address] | | | | | | [phone] | | | | | | | | +--------+ + + + + | 05/21/ | Implant | Cardiology | Daljit Singletary, | Remote Device | | 2019 | Monitor | | MD Sim [address] | Interrogation | | | | | [place], | (Primary Dx); | | | | | [place] [address] | Pacemaker; | | | | | [phone] | Sinoatrial node | | | | | | dysfunction (HCC) | | | | | | with symptomatic | | | | | | bradycardia | +--------+ + + + + documented as of this encounter Visit Diagnoses Not on filedocumented in this encounter"
--- OUTSIDE RECORDS SUMMARY | ~2020-04-15 | XMS | Encounter Summary ---
Demographics + + + | Address | [address] | | | [place] [address] | + + + | Home Phone [...] Providers + +------+ + | Care Pot Fisher Name | Role | Phone | + [...] + + | 01/28/ | Refill | [facility] | Kirk French | Medication Refill | | 2019 | | [facility] | MD Bre[address] | | | | | [facility] [address] | | | | | [address] | [place] [address] | | | | | [place], [place] | [phone] | | | | | [address] | | | | | | [phone] | | | +--------+--------+ + + + [...] | | | | | | [place] [address] | | | | | | [phone] | | | | | | | | +--------+ + + + + | 05/01/ | Procedure | Cardiology | | | | 2019 | visit | | | | +--------+ + + + + | 05/01/ | Office | Cardiology | [place]via, | | | 2019 | Visit | | PARISA Vernon [address] | | | | | | [place], | | | | | | [place] [address] | | | | | | [phone] | | | | | | | | +--------+ + + + + | 05/21/ | Implant | Cardiology | Daljit Singletary, | Remote Device | | 2019 | Monitor | | [address] [facility] | Interrogation | | | | | [place], | (Primary Dx); | | | | | [place] [address] | Pacemaker; | | | | | [phone] | Sinoatrial node | | | | | | dysfunction (HCC) | | | | | | with symptomatic | | | | | | bradycardia | +--------+ + + + + documented as of this encounter Visit Diagnoses Not on filedocumented in this encounter"
--- OUTSIDE RECORDS SUMMARY | ~2020-04-15 | XMS | Encounter Summary ---
Demographics + + + | Address | [address] | | | [place] [address] | + + + | Home Phone [...] Team Providers + +------+ + | Care Landscaping Specialist Name | Role | Phone | [...] | Aneurysmal | [place], | [address] | | | | | dilatation | PARISA Solis | [place], | | | | | (HCC) | [address] | [place] | | | | | Procedures | [place] | [address] | | | | | ECHO | [place], | Phone: | | | | | Complete | [place] | [phone] | | | | | | [address] | Fax: | | | | | | Phone: | [phone] | | | | | | [phone] | | | | | | | Fax: | | | | | | | [phone] | | +--------+--------+ + + + + Encounter Details +--------+ + + + + | Date | Type | Department | Care Team | Description | +--------+ + + + + | 11/16/ | Orders Only | [facility] [place] | [place], | Aneurysmal | | 2017 | | CARDIOLOGY [address] | PARISA Solis [address] | dilatation (HCC) | | | | [place], | [place], | (Primary Dx) | | | | [place] [address] | [place] [address] | | | | | [phone] | [phone] | | | | | | | [...] W | | | | | | [place], | | | | | | [place] [address] | | | | | | [phone] | | | | | | | | +--------+ + + + + | 05/01/ | Procedure | Cardiology | | | | 2019 | visit | | | | +--------+ + + + + | 05/01/ | Office | Cardiology | [place], | | | 2019 | Visit | | PARISA Solis [address] | | | | | | [place], | | | | | | [place] [address] | | | | | | [phone] | | | | | | | | +--------+ + + + + | 05/21/ | Implant | Cardiology | Daljit Singletary, | Remote Device | | 2019 | Monitor | | [address] | Interrogation | | | | | [place], | (Primary Dx); | | | | | [place] [address] | Pacemaker; | | | | | [phone] | Sinoatrial node | | | | [...] Patient Name VICTOR HUGO | | | [place] Room Number KIRK Patient | | | [id number] Date of Study 11/16/2017 Number | | | Visit Number [id number] | | | Referring Physician GURJIT TROY Number | | | NORMA SOLIS Date | | | of 1960 Caustic Plant Worker ROMAINE | | | MARISSA TIPTON Age 57 year(s) Interpreting | | | GURJIT TROY | | | Repair Electric Motor Assembler DALJIT SINGLETARY, | | | MD | | | Gender Male Nurse | | | Stress Paint Roller Cover Machine Setter Procedure Type of | | | Study [...] | | | EF | | | Jimxjfubl35% Left Ventricle Diastolic Dimension: 5.12 cm | [...] Volume: 46.33 ml | | | EF Rfjribpws40% | | | | | | Left [...] Rad Results In - 11/16/2017 1:48 PM [facility] Transthoracic Echocardiography Report | | (TTE) Demographics Patient Name VICTOR HUGO BARRY Room Number KIRK | | Patient [id number] Date of Study 11/16/2017 Number Visit Number | | [id number] Referring Physician GURJIT TROY | | Number NORMA SOLIS Date of | | 1960 Caustic Plant Worker ROMAINE TIPTON RDCS Age 57 year(s) | | Interpreting GURJIT TROY Repair Electric Motor Assembler | | DALJIT SINGLETARY MD | | [...] LA Volume: 46.33 ml | | EF Ymhsaqzqb21% Left Ventricle Diastolic Dimension: 5.12 cm Systolic [...] LA Volume: 46.33 ml | | EF Mejggzlzt11% | | | | Left Ventricle | [...]
--- OUTSIDE RECORDS SUMMARY | ~2020-04-15 | XMS | Encounter Summary ---
Demographics + + + | Address | [address] | | | [place] [address] | + + + | Home Phone [...] Providers + +------+ + | Care Senior Naval Parachutist Name | Role | Phone | + [...] [address] | | | | | | [place], [place] | (Fax) | | | | | [address] | | | | | | [phone] | | | +--------+ + + + [...] | | | | | | [place] [address] | | | | | | [phone] | | | | | | | | +--------+ + + + + | 05/01/ | Procedure | Cardiology | | | | 2019 | visit | | | | +--------+ + + + + | 05/01/ | Office | Cardiology | [place], | | | 2019 | Visit | | PARISA Vernon [address] | | | | | | [place], | | | | | | [place] [address] | | | | | | [phone] | | | | | | | | +--------+ + + + + | 05/21/ | Implant | Cardiology | Daljit Singletary, | Remote Device | | 2019 | Monitor | | [address] [place] | Interrogation | | | | | [place], | (Primary Dx); | | | | | [place] [address] | Pacemaker; | | | | | [phone] | Sinoatrial node | | | | | | dysfunction (HCC) | | | | | | with symptomatic | | | | | | bradycardia | +--------+ + + + + documented as of this encounter Visit Diagnoses Not on filedocumented in this encounter"
--- OUTSIDE RECORDS SUMMARY | ~2020-04-15 | XMS | Encounter Summary ---
Demographics + + + | Address | [address] | | | [place] [address] | + + + | Home Phone [...] Providers + +------+ + | Care Coat Finisher Name | Role | Phone | [...] | | | DDD | Scotty C, TECHNOLOGY SERVICES MANAGER | [facility] | | | | | (degenerativ | [address] | [facility] | | | | | e disc | [facility] | MEDICAL | | | | | disease), | [address] | CENTER [address] | | | | | lumbar | B | [place] | | | | | Chronic | [place], [place] | [place], | | | | | left-sided | [address] | [place] [address] | | | | | low back | Phone: | Phone: | | | | | pain with | [phone] | [phone] | | | | | left-sided | Fax: | Fax: | | | | | sciatica | [phone] | [phone] | | | | | History of [...] | | | DDD | Scotty C, TECHNOLOGY SERVICES MANAGER | [address] [place] | | | | | (degenerativ | [address] | [place], | | | | | e disc | [place] | [place] [address] | | | | | disease), | [address]IVE [address] | Phone: | | | | | lumbar | B | [phone] | | | | | Chronic | [place], [place] | Fax: | | | | | left-sided | [address] | [phone] | | | | | low back | Phone: | | | | | | pain with | [phone] | | | | | | left-sided | Fax: | | | | | | sciatica | [phone] | | | | | | History [...] + + | 07/01/ | Hospital | [facility] | Scotty Galdamez, | DDD (degenerative | | 2018 | Encounter | MED CTR [address] | TECHNOLOGY SERVICES MANAGER [address] | disc disease), | | | | [place], | [address] | lumbar; Chronic | | | | [place] [address] | [place] [address] | left-sided low back | | | | [phone] | [phone] | pain with left-sided | | | [...] + + + +---------+ + + | Trion-3 Fatty | CAPS, one capsule by | [...] | | | | | | [place] [address] | | | | | | [phone] | | | | | | | [...] | | | | | | [place] [address] | | | | | | [phone] | | | | | | | | +--------+ + + + + | 05/21/ | Implant | Cardiology | Daljit Singletary, | Remote Device | | 2020 | Monitor | | [address] [place] | Interrogation | | | | | [place], | (Primary Dx); | | | | | [place] [address] | Pacemaker; | | | | | [phone] | Sinoatrial node | | | | [...]
--- OUTSIDE RECORDS SUMMARY | ~2020-04-15 | XMS | Encounter Summary ---
Demographics + + + | Address | [address] | | | [place] [address] | + + + | Home Phone [...] Team Providers + +------+ + | Care Cellular Equipment Repairer Name | Role | Phone [...] | [place] | [address] [place] | | | | | [address] | [address] | | | | | [phone] | | | +--------+ + + + [...] | | | | | | [place] [address] | | | | | | [phone] | | | | | | | | +--------+ + + + + | 05/01/ | Procedure | Cardiology | | | | 2019 | visit | | | | +--------+ + + + + | 05/01/ | Office | Cardiology | [place], | | | 2019 | Visit | | PARISA Vernon [address] | | | | | | [place], | | | | | | [place] [address] | | | | | | [phone] | | | | | | | | +--------+ + + + + | 05/21/ | Implant | Cardiology | Daljit Singletary, | Remote Device | | 2019 | Monitor | | [address] [place] | Interrogation | | | | | [place], | (Primary Dx); | | | | | [place] [address] | Pacemaker; | | | | | [phone] | Sinoatrial node | | | | | | dysfunction ([facility]) | | | | | | with symptomatic | | | | | | bradycardia | +--------+ + + + + documented as of this encounter Visit Diagnoses Not on filedocumented in this encounter"
--- OUTSIDE RECORDS SUMMARY | ~2020-04-15 | XMS | Encounter Summary ---
Demographics + + + | Address | [address] | | | [place] [address] | + + + | Home Phone [...] + +------+ + | Care Director Of Student Aid Name | Role | Phone | + +------+ + | Kirk French MD | PCP | | + +------+ + Encounter Details +--------+ + + + + | Date | Type | Department | Care Team | Description | +--------+ + + + + | 12/24/ | Orders Only | [facility] | Conversion | | | 2018 | | [facility] | Transaction, | | | | | PRIMARY CARE [address] | Provider Unknown | | | | | [address] | [phone] | | | | | [place] | | | | | | [address] | | | | | | [phone] | | | +--------+ + + + [...] W | | | | | | [place], | | | | | | [place] [address] | | | | | | [phone] | | | | | | | | +--------+ + + + + | 05/01/ | Procedure | Cardiology | | | | 2019 | visit | | | | +--------+ + + + + | 05/01/ | Office | Cardiology | Silvia, | | | 2019 | Visit | | PARISA Vernon W | | | | | | [place], | | | | | | [place] [address] | | | | | | [phone] | | | | | | | | +--------+ + + + + | 05/21/ | Implant | Cardiology | Daljit Singletary, | Remote Device | | 2020 | Monitor | | [address] [facility] | Interrogation | | | | | [place], | (Primary Dx); | | | | | [place] [address] | Pacemaker; | | | | | [phone] | Sinoatrial node | | | | [...] This external order was created through the CADsurf Console. | EXTERNAL LAB | | Historically [...]
--- OUTSIDE RECORDS SUMMARY | ~2020-04-15 | XMS | Encounter Summary ---
Demographics + + + | Address | [address] | | | [place] [address] | + + + | Home Phone [...] Team Providers + +------+ + | Care Cadd Operator Name | Role | Phone | + +------+ + PCP | Unavailable | + +------+ + Encounter Details +--------+ + + + + | Date | Type | Department | Care Team | Description | +--------+ + + + + | 02/01/ | [facility] | [facility] | Evan Gandara MD | | | 2008 - | Encounter | MED CTR MED ONC | [address] [facility] | | | | | [address] [place] | [place] | | | 02/06/ | | [place] [address] | [address] | | | 2008 | | [phone] | | | +--------+ + + + [...] W | | | | | | [place], | | | | | | [place] [address] | | | | | | [phone] | | | | | | | | +--------+ + + + + | 05/01/ | Procedure | Cardiology | | | | 2019 | visit | | | | +--------+ + + + + | 05/01/ | Office | Cardiology | [place]via | | | 2019 | Visit | | PARISA Vernon [address] | | | | | | [place], | | | | | | [place] [address] | | | | | | [phone] | | | | | | | | +--------+ + + + + | 05/21/ | Implant | Cardiology | Daljit Singletary, | Remote Device | 2019 | Monitor | | MD Sim [place] | Interrogation | | | | | [place], | (Primary Dx); | | | | | [place] [address] | Pacemaker; | | | | | [phone] | Sinoatrial node | | | | | | dysfunction (HCC) | | | | | | with symptomatic | | | | | | bradycardia | +--------+ + + + + documented as of this encounter Visit Diagnoses Not on filedocumented in this encounter"
--- OUTSIDE RECORDS SUMMARY | ~2020-04-15 | XMS | Encounter Summary ---
Demographics + + + | Address | [address] | | | [place] [address] | + + + | Home Phone [...] Providers + +------+ + | Care Mill Worker Name | Role | Phone | [...] CARDIOLOGY [address] | MD [address] [place] [place] | Interrogation | | | | [place], | [place], | (Primary Dx); | | | | [place] [address] | [place] [address] | Pacemaker; | | | | [phone] | [phone] | Sinoatrial node | | | | [...] | | | | | | [place] [address] | | | | | | [phone] | | | | | | | | +--------+ + + + + | 05/01/ | Procedure | Cardiology | | | | 2019 | visit | | | | +--------+ + + + + | 05/01/ | Office | Cardiology | [place]via, | | | 2019 | Visit | | PARISA Vernon W | | | | | | [place], | | | | | | [place] [address] | | | | | | [phone] | | | | | | | | +--------+ + + + + | 05/21/ | Implant | Cardiology | Daljit Singletary, | Remote Device | 2019 | Monitor | | MD Sim [facility] | Interrogation | | | | | [place], | (Primary Dx); | | | | | [place] [address] | Pacemaker; | | | | | [phone] | Sinoatrial node | | | | [...] remote PDF scanned into | | | [facility] for remote interrogation results. Data [...]
--- OUTSIDE RECORDS SUMMARY | ~2020-04-15 | XMS | Encounter Summary ---
Demographics + + + | Address | [address] | | | [place] [address] | + + + | Home Phone [...] Team Providers + +------+ + | Care Wheel Blocker Name | Role | Phone | + +------+ + PCP | Unavailable | + +------+ + Encounter Details +--------+ + + + + | Date | Type | Department | Care Team | Description | +--------+ + + + + | 12/01/ | Hospital | [facility] | | | | 1997 | Encounter | MED CTR EMERGENCY | | | | | | CENTER [address] | | | | | | [place] | | | | | | [address] | | | | | | [phone] | | | +--------+ + + + [...] | | | | | | [place] [address] | | | | | | [phone] | | | | | | | | +--------+ + + + + | 05/01/ | Procedure | Cardiology | | | | 2019 | visit | | | | +--------+ + + + + | 05/01/ | Office | Cardiology | Silvia, | | | 2019 | Visit | | PARISA Vernon W | | | | | | [place], | | | | | | [place] [address] | | | | | | [phone] | | | | | | | | +--------+ + + + + | 05/21/ | Implant | Cardiology | Daljit Singletary, | Remote Device | 2019 | Monitor | | [address] [place] | Interrogation | | | | | [place], | (Primary Dx); | | | | | [place] [address] | Pacemaker; | | | | | [phone] | Sinoatrial node | | | | | | dysfunction (HCC) | | | | | | with symptomatic | | | | | | bradycardia | +--------+ + + + + documented as of this encounter Visit Diagnoses Not on filedocumented in this encounter"
--- OUTSIDE RECORDS SUMMARY | ~2020-04-15 | XMS | Encounter Summary ---
Demographics + + + | Address | [address] | | | [place] [address] | + + + | Home Phone [...] Providers + +------+ + | Care Final Finisher Name | Role | Phone | + +------+ + | Kirk French MD | PCP | | + +------+ + Encounter Details +--------+ + + + + | Date | Type | Department | Care Team | Description | +--------+ + + + + | 01/07/ | Hospital | [facility] | Conversion | | | 2017 | Encounter | [facility] | Transaction, | | | | | ULTRASOUND [address] | Provider Unknown | | | | | [address] [address] [facility] [address] | [phone] | | | | | [place] | | | | | | [address] | Kirk French | | | | | [phone] | MD Eva Guidry | | | | | | [address] [place], | | | | | | [place] [address] | | | | | | [phone] | | | | | | | [...] + + + +---------+ + + | [place]-3 Fatty | CAPS, one capsule by | [...] | | | | | | [place] [address] | | | | | | [phone] | | | | | | | | +--------+ + + + + | 05/01/ | Procedure | Cardiology | | | | 2019 | visit | | | | +--------+ + + + + | 05/01/ | Office | Cardiology | [place], | | | 2019 | Visit | | PARISA Vernon W | | | | | | [place], | | | | | | [place] [address] | | | | | | [phone] | | | | | | | | +--------+ + + + + | 05/21/ | Implant | Cardiology | Daljit Singletary, | Remote Device | | 2019 | Monitor | | [address] [place] | Interrogation | | | | | [place], | (Primary Dx); | | | | | [place] [address] | Pacemaker; | | | | | [phone] | Sinoatrial node | | | | | | dysfunction (HCC) | | | | | | with symptomatic | | | | | | bradycardia | +--------+ + + + + documented as of this encounter Visit Diagnoses Not on filedocumented in this encounter"
--- OUTSIDE RECORDS SUMMARY | ~2020-04-15 | XMS | Encounter Summary ---
Demographics + + + | Address | [address] | | | [place] [address] | + + + | Home Phone [...] Providers + +------+ + | Care Supervisor [employer] Name | Role | Phone | + +------+ + | Kirk French MD | PCP | | + +------+ + Encounter Details +--------+---------+ + + + | Date | Type | Department | Care Team | Description | +--------+---------+ + + + | 01/25/ | Surgery | [facility] | Daljit Singletary, | CV LHC | | 2019 | | MED CTR CV INTRA OP | MD [address] | | | | | [address] | [address] [place], | | | | | [place] | [place] [address] | | | | | [address] | [phone] | | | | | [phone] | | | +--------+---------+ + + + [...] by your healthcare provider Date Last Reviewed: 09/22/201619998186-5484 [employer]. [address] [place] [address]. All righ ts reserved. This information is [...] + + + +---------+ + + | [place]-3 Fatty | CAPS, one capsule by | [...] W | | | | | | [place], | | | | | | [place] [address] | | | | | | [phone] | | | | | | | | +--------+ + + + + | 05/01/ | Procedure | Cardiology | | | | 2019 | visit | | | | +--------+ + + + + | 05/01/ | Office | Cardiology | Silvia, | | | 2019 | Visit | | [address] | | | | | | [place], | | | | | | [place] [address] | | | | | | [phone] | | | | | | | | +--------+ + + + + | 05/21/ | Implant | Cardiology | Daljit Singletary, | Remote Device | | 2019 | Monitor | | MD [address] [place] | Interrogation | | | | | [place], | (Primary Dx); | | | | | [place] [address] | Pacemaker; | | | | | [phone] | Sinoatrial node | | | | [...] (1960) MEDICAL RECORD NUMBER: | | | [id number] OF PROCEDURE: 01/25/2019 QUALITY MANAGEMENT NURSE: Daljit | | | MD Gemini PROCEDURES [...] Sanchez, (1960) | | OF PROCEDURE: 01/25/2019PRIMARY ASSOCIATE PROFESSOR OF PHILOSOPHY: Daljit Singletary MD PROCEDURES | | PERFORMED:Coronary [...] medical management. | | at 9[facility] PROVIDER:Kirk French MDFor additional [...] or lesion | | type, unspecified whether kaibab or transplanted heart | + + documented [...]
--- OUTSIDE RECORDS SUMMARY | ~2020-04-15 | XMS | Encounter Summary ---
Demographics + + + | Address | [address] | | | [place] [address] | + + + | Home Phone [...] Team Providers + +------+ + | Care Cro Name | Role | Phone | + +------+ + | Kirk French MD | PCP | | + +------+ + Encounter Details +--------+---------+ + + + | Date | Type | Department | Care Team | Description | +--------+---------+ + + + | 01/25/ | Surgery | [facility] | Daljit Singletary, | CV LHC | | 2019 | | MED CTR CV INTRA OP | MD [address] | | | | | [address] | [address] [place], | | | | | [place] | [place] [address] | | | | | [address] | [phone] | | | | | [phone] | | | +--------+---------+ + + + [...] by your healthcare provider Date Last Reviewed: 09/22/201619999482-3469 [employer]. [address] [place] [address]. All righ ts reserved. This information is [...] | | | | | | [place], | | | | | | [place] [address] | | | | | | [phone] | | | | | | | | +--------+ + + + + | 05/01/ | Procedure | Cardiology | | | | 2019 | visit | | | | +--------+ + + + + | 05/01/ | Office | Cardiology | Silvia, | | | 2019 | Visit | | [address] | | | | | | [place], | | | | | | [place] [address] | | | | | | [phone] | | | | | | | | +--------+ + + + + | 05/21/ | Implant | Cardiology | Daljit Singletary, | Remote Device | | 2019 | Monitor | | MD [address] [place] | Interrogation | | | | | [place], | (Primary Dx); | | | | | [place] [address] | Pacemaker; | | | | | [phone] | Sinoatrial node | | | | [...] (1960) MEDICAL RECORD NUMBER: | | | [id number] OF PROCEDURE: 01/25/2019 ORACLE BRM DEVELOPER: Daljit | | | MD Gemini PROCEDURES [...] Sanchez, (1960) | | OF PROCEDURE: 01/25/2019PRIMARY ADVANCED MANUFACTURING VICE PRESIDENT: Daljit Singletary MD PROCEDURES | | PERFORMED:Coronary [...] | at 9:[facility] PROVIDER:Kirk French MDFor additional [...] or lesion | | type, unspecified whether [place] or transplanted heart | + + documented [...]
--- OUTSIDE RECORDS SUMMARY | ~2020-04-15 | XMS | Encounter Summary ---
Demographics + + + | Address | [address] | | | [place] [address] | + + + | Home Phone [...] Providers + +------+ + | Care Radio Sales Account Executive Name | Role | Phone | [...] [place], | | | | | | [place] [address] | | | | | | [phone] | | | +--------+ + + + [...] | | | | | | [place], | | | | | | [place] [address] | | | | | | [phone] | | | | | | | | +--------+ + + + + | 05/01/ | Procedure | Cardiology | | | | 2019 | visit | | | | +--------+ + + + + | 05/01/ | Office | Cardiology | Silvia, | | | 2019 | Visit | | [address] | | | | | | [place], | | | | | | [place] [address] | | | | | | [phone] | | | | | | | | +--------+ + + + + | 05/21/ | Implant | Cardiology | Daljit Singletary, | Remote Device | 2019 | Monitor | | [address] | Interrogation | | | | | [place], | (Primary Dx); | | | | | [place] [address] | Pacemaker; | | | | | [phone] | Sinoatrial node | | | | | | dysfunction (HCC) | | | | | | with symptomatic | | | | | | bradycardia | +--------+ + + + + documented as of this encounter Visit Diagnoses Not on filedocumented in this encounter"
--- OUTSIDE RECORDS SUMMARY | ~2020-04-15 | XMS | Encounter Summary ---
Demographics + + + | Address | [address] [place] [address] [address] | | | [place] [address] | + + + | Home Phone | | + + + | Preferred Language | Unknown | + + + | Marital Status | | + + + | Anabaptist Affiliation | Unknown | + + + | Race | White | + + + | Ethnic Group | Not or | + + + Author + + + | Author | [facility] | + + + | Organization | [facility] | + + + | Address | Unknown | + + + | Phone | Unavailable | + + + Support + + + + + | Name | Relationship | Address | Phone | + + + + + | Rachel Valencia | ELIEZER | [place] | | | | | [address] | | + + + + + Care Team Providers + +------+ + | Care Pbx Manager Name | Role | Phone | [...] | | 2020 | | Center at [facility] [address] | [facility] | (capsule referral) | | | | [address] | Road [place], [place] | | | | | Mailcode: Center | [address] | | | | | for Health and | | | | | | [facility] [address] | | | | | | [place], [place] | | | | | | [address] | | | | | | [phone] | | | +--------+ + + + [...]
--- OUTSIDE RECORDS SUMMARY | ~2020-04-15 | XMS | Encounter Summary ---
Demographics + + + | Address | [address] | | | [place] [address] | + + + | Home Phone [...] Providers + +------+ + | Care Recruiting And Selection Consultant Name | Role | Phone | [...] CARDIOLOGY [address] | MD [address] [place] | Interrogation | | | | [place], | [place], | (Primary Dx); | | | | [place] [address] | [place] [address] | Pacemaker; | | | | [phone] | [phone] | Sinoatrial node | | | | [...] | | | | | | [place] [address] | | | | | | [phone] | | | | | | | | +--------+ + + + + | 05/01/ | Procedure | Cardiology | | | | 2019 | visit | | | | +--------+ + + + + | 05/01/ | Office | Cardiology | Silvia, | | | 2019 | Visit | | [address] | | | | | | [place], | | | | | | [place] [address] | | | | | | [phone] | | | | | | | | +--------+ + + + + | 05/21/ | Implant | Cardiology | Daljit Singletary, | Remote Device | 2019 | Monitor | | MD [facility] | Interrogation | | | | | [place], | (Primary Dx); | | | | | [place] [address] | Pacemaker; | | | | | [phone] | Sinoatrial node | | | | [...] remote PDF scanned into | | | [facility] for remote interrogation results. Data [...]
--- OUTSIDE RECORDS SUMMARY | ~2020-04-15 | XMS | Encounter Summary ---
Demographics + + + | Address | [address] | | | [place] [address] | + + + | Home Phone [...] Team Providers + +------+ + | Care Stitch Bonding Machine Tender Name | Role | Phone [...] + + | 06/04/ | Hospital | [facility] | Sariah, | Cervical spinal | | 2016 | Encounter | MED CTR XRAY [address] | Marietta Mason, WORKDAY DIRECTOR [address] | stenosis | | | | [place] | [address] | | | | | [place] [address] | [place] [address] | | | | | [phone] | [phone] | | | | | | | [...] + + + +---------+ + + | Progres[place]-3 Fatty | CAPS, one capsule by | [...] | | | | | | [place] [address] | | | | | | [phone] | | | | | | | | +--------+ + + + + | 05/01/ | Procedure | Cardiology | | | | 2019 | visit | | | | +--------+ + + + + | 05/01/ | Office | Cardiology | Silvia, | | | 2019 | Visit | | PARISA Vernon [address] | | | | | | [place], | | | | | | [place] [address] | | | | | | [phone] | | | | | | | | +--------+ + + + + | 05/21/ | Implant | Cardiology | Daljit Singletary, | Remote Device | | 2019 | Monitor | | [facility] | Interrogation | | | | | [place], | (Primary Dx); | | | | | [place] [address] | Pacemaker; | | | | | [phone] | Sinoatrial node | | | | [...] | | | | thecal, Starting [facility] 06/04/16 at | | | | | [...]
--- OUTSIDE RECORDS SUMMARY | ~2020-04-15 | XMS | Encounter Summary ---
Demographics + + + | Address | [address] | | | [place] [address] | + + + | Home Phone [...] Providers + +------+ + | Care Pipe Crew Foreman Name | Role | Phone | [...] | | CARDIOLOGY [address] | [address] [place] | | | | | [place], | [place], | | | | | [place] [address] | [place] [address] | | | | | [phone] | [phone] | | | | | | | [...] W | | | | | | [place], | | | | | | [place] [address] | | | | | | [phone] | | | | | | | | +--------+ + + + + | 05/01/ | Procedure | Cardiology | | | | 2019 | visit | | | | +--------+ + + + + | 05/01/ | Office | Cardiology | Silvia, | | | 2019 | Visit | | PARISA [address] | | | | | | [place], | | | | | | [place] [address] | | | | | | [phone] | | | | | | | | +--------+ + + + + | 05/21/ | Implant | Cardiology | Daljit Singletary, | Remote Device | | 2019 | Monitor | | [facility] | Interrogation | | | | | [place], | (Primary Dx); | | | | | [place] [address] | Pacemaker; | | | | | [phone] | Sinoatrial node | | | | | | dysfunction (HCC) | | | | | | with symptomatic | | | | | | bradycardia | +--------+ + + + + documented as of this encounter Visit Diagnoses Not on filedocumented in this encounter"
--- OUTSIDE RECORDS SUMMARY | ~2020-04-15 | XMS | Encounter Summary ---
Demographics + + + | Address | [address] | | | [place] [address] | + + + | Home Phone [...] Providers + +------+ + | Care Product Applications Scientist Name | Role | Phone | [...] [address] | | | | | [place], | [place], | | | | | [place] [address] | [place] [address] | | | | | [phone] | [phone] | | | | | | | [...] W | | | | | | [place], | | | | | | [place] [address] | | | | | | [phone] | | | | | | | | +--------+ + + + + | 05/01/ | Procedure | Cardiology | | | | 2019 | visit | | | | +--------+ + + + + | 05/01/ | Office | Cardiology | Silvia, | | | 2019 | Visit | | PARISA [address] W | | | | | | [place], | | | | | | [place] [address] | | | | | | [phone] | | | | | | | | +--------+ + + + + | 05/21/ | Implant | Cardiology | Daljit Singletary, | Remote Device | 2019 | Monitor | | MD [address] [place] | Interrogation | | | | | [place], | (Primary Dx); | | | | | [place] [address] | Pacemaker; | | | | | [phone] | Sinoatrial node | | | | [...] Comment | + + | [facility] | + + + +---------+ + + [...] Comment | + + | [facility] | + + + +---------+ + + [...] Comment | + + | [facility] | + + + +---------+ + + [...]
--- OUTSIDE RECORDS SUMMARY | ~2020-04-15 | XMS | Encounter Summary ---
Demographics + + + | Address | [address] | | | [place] [address] | + + + | Home Phone [...] Providers + +------+ + | Care Order Entry Administrator Name | Role | Phone | [...] [address] | | | | | | [place], [place] | (Fax) | | | | | [address] | | | | | | [phone] | | | +--------+ + + + [...] | | | | | | [place] [address] | | | | | | [phone] | | | | | | | [...] | | | | | | [place] [address] | | | | | | [phone] | | | | | | | | +--------+ + + + + | 05/21/ | Implant | Cardiology | Daljit Singletary, | Remote Device | | 2019 | Monitor | | [address] [place] | Interrogation | | | | | [place], | (Primary Dx); | | | | | [place] [address] | Pacemaker; | | | | | [phone] | Sinoatrial node | | | | | | dysfunction (HCC) | | | | | | with symptomatic | | | | | | bradycardia | +--------+ + + + + documented as of this encounter Visit Diagnoses Not on filedocumented in this encounter"
--- OUTSIDE RECORDS SUMMARY | ~2020-04-15 | XMS | Encounter Summary ---
Demographics + + + | Address | [address] | | | [place] [address] | + + + | Home Phone [...] Providers + +------+ + | [employer] Name | Role | Phone | + +------+ + | Kirk Frnech MD | PCP | | + +------+ [...] [address] | | | | | [place] | [address] [place] | | | | | [address] | [address] | | | | | [phone] | | | +--------+ + + + [...] | | | | | | [place], | | | | | | [place] [address] | | | | | | [phone] | | | | | | | [...] | | | | | | [place] [address] | | | | | | [phone] | | | | | | | | +--------+ + + + + | 05/21/ | Implant | Cardiology | Daljit Singletary, | Remote Device | 2019 | Monitor | | [address] | Interrogation | | | | | [facility] [place], | (Primary Dx); | | | | | [place] [address] | Pacemaker; | | | | | [phone] | Sinoatrial node | | | | | | dysfunction (HCC) | | | | | | with symptomatic | | | | | | bradycardia | +--------+ + + + + documented as of this encounter Visit Diagnoses Not on filedocumented in this encounter"
--- OUTSIDE RECORDS SUMMARY | ~2020-04-15 | XMS | Encounter Summary ---
Demographics + + + | Address | [address] | | | [place] [address] | + + + | Home Phone [...] Providers + +------+ + | Care Superintendent Seed Mill Name | Role | Phone | [...] | 01/05/ | [facility] | [facility] Silvia, | Pacemaker - | | 2018 | Visit | CARDIOLOGY [address] | PAR[place] [address] | [employer] - [id number] | | | | [place], | [place], | [place] - Implanted | | | | [place] [address] | [place] [address] | 06/14/2009 (Primary | | | | [phone] | [phone] | Dx); Chest pain, | | | [...] involving | | | | | | kaibab coronary | | | | | | artery of kaibab | | | | | | heart [...] of non-critical coronary artery d isease involving kaibab coronary artery of kaibab heart without angina pectoris, essential h ypertension, [...] pain. He went to the ER in [place] because th e NTG didn't relieved the pain. He was diagnosed with bronchitis. Otherwise he has had no ot her symptoms. He has had a good energy level. He tries to stay active. He has joined a [employer] gym and trying to exercise more often. [...] kaibab coronary artery of kaibab heart without angina pectoris Cannabis abuse, daily [...] by mouth every evening 90 tablet 0 [facility] Natural [...] 3RD DOSE, CALL 911 100 tablet 3 [place]-3 Fatty Acids (SALMON OIL-1000 PO) CAPS, one capsule by mouth daily twice daily ONE TOUCH DELICA LANCETS [facility] Check glucose as needed for hypoglycemia 100 [...] 131 (A) 10/18/2017 I reviewed records from [facility] for office visit on 01/2017 [...] overload. 2. Non-critical Coronary artery disease involving kaibab coronary a rtery of kaibab heart without angina pectoris: A. Normal exercise [...] arrhythmia performed by Dr. Gambino at [facility] on 01/30/2013. Patient had spontaneous [...] to go back in 3 days to [place] for an attempt of ablation under general [...] a normal stable device function. Estimated remaining [facility] longevity is 3.5 years.. 5. [...] this chart may have been created with Elast[employer] voice recognition software. Occasi onal wrong-word or [...] | | | | | | [place] [address] | | | | | | [phone] | | | | | | | | +--------+ + + + + | 05/01/ | Procedure | Cardiology | | | | 2019 | visit | | | | +--------+ + + + + | 05/01/ | Office | Cardiology | Silvia, | | | 2019 | Visit | | PARISA Vernon [address] | | | | | | [place], | | | | | | [place] [address] | | | | | | [phone] | | | | | | | | +--------+ + + + + | 05/21/ | Implant | Cardiology | Sydni Singletary, | Remote Device | 2019 | Monitor | | [address] [place] | Interrogation | | | | | [place], | (Primary Dx); | | | | | [place] [address] | Pacemaker; | | | | | [phone] | Sinoatrial node | | | | [...] dysfunction | | | | | | ([facility]) with | | | | | | symptomatic | | | | | | bradycardia | | | | | | Symptomatic PVCs | | | | | | Tachycardia | | | | | | Coronary artery | | | | | | disease involving | | | | | | kaibab coronary | | | | | | artery of kaibab | | | | | | heart [...] aneurysm | | | | | | ([facility]) | | + +--------+ + + + [...] SYDNI | | | | | | ([address]) on 01/06/2018 | | | | | [...]
--- OUTSIDE RECORDS SUMMARY | ~2020-04-15 | XMS | Encounter Summary ---
Demographics + + + | Address | [address] | | | [place] [address] | + + + | Home Phone [...] Providers + +------+ + | Care Open Claims Representative Name | Role | Phone [...] [address] | | | | | [place], | [place], | | | | | [place] [address] | [place] [address] | | | | | [phone] | [phone] | | | | | | | [...] W | | | | | | [place], | | | | | | [place] [address] | | | | | | [phone] | | | | | | | | +--------+ + + + + | 05/01/ | Procedure | Cardiology | | | | 2019 | visit | | | | +--------+ + + + + | 05/01/ | Office | Cardiology | Silvia, | | | 2019 | Visit | | PARISA [address] W | | | | | | [place], | | | | | | [place] [address] | | | | | | [phone] | | | | | | | | +--------+ + + + + | 05/21/ | Implant | Cardiology | Daljit Singletary, | Remote Device | 2019 | Monitor | | MD [address] [place] | Interrogation | | | | | [place], | (Primary Dx); | | | | | [place] [address] | Pacemaker; | | | | | [phone] | Sinoatrial node | | | | [...]
--- OUTSIDE RECORDS SUMMARY | ~2020-04-15 | XMS | Encounter Summary ---
Demographics + + + | Address | [address] | | | [place] [address] | + + + | Home Phone [...] Providers + +------+ + | Care Drafter Engineering Name | Role | Phone | [...] [place], [place] | | | | | [place] | | [address] Phone: | | | | | CYSTO/URETER | | [phone] | | | | | O | | Fax: | | | | | W/LITHOTRIPS | | [phone] | | | | | Y &INDWELL [...] + + | 04/13/ | Surgery | [facility] | Matthew Uriarte | Cystoscopy, Left | | 2018 | | MED CTR OR INTRA OP | Dahl, MD [address] | ureteroscopy with | | | | [address] | SADIEE [place] NGUYEN | laser lithotripsy, | | | | [place] | [address] | Left ureteral stent | | | | [address] | | placement | | | | [phone] | | | +--------+---------+ + + + [...] Care Everywhere.Kidney Stones, Treating: Ureteroscopic Stone Removal (Zimbabwean)Stents, Ureteral (Zimbabwean)documented in this encounter Medications at Time of [...] + + + +---------+ + + | [place]-3 Fatty | CAPS, one capsule by | [...] | | | | | | | lone pine coronary | | | | | | | artery of lone pine | | | | | | | [...] | | | | | | [place], | | | | | | [place] [address] | | | | | | [phone] | | | | | | | | +--------+ + + + + | 05/01/ | Procedure | Cardiology | | | | 2019 | visit | | | | +--------+ + + + + | 05/01/ | Office | Cardiology | Silvia, | | | 2019 | Visit | | PARISA [address] | | | | | | [place], | | | | | | [place] [address] | | | | | | [phone] | | | | | | | | +--------+ + + + + | 05/21/ | Implant | Cardiology | Daljit Singletary, | Remote Device | 2019 | Monitor | | [address] | Interrogation | | | | | [place], | (Primary Dx); | | | | | [place] [address] | Pacemaker; | | | | | [phone] | Sinoatrial node | | | | [...] [facility] | | | | | | at:[phone]. | | | | + + + [...] + + | Performed at: 01 - [facility] [place] [address] [facility], | REFERENCE LAB | | [place], [place] [id number] Television News Producer: Yeny Rios MD, Phone: | ARSH CASTANON | | [phone] | | + + + + + + + + | Performing | Address | City/State/Zipcode | Phone Number | | Organization | | | | + + + + + | REFERENCE LAB | [address] | [place], [place] | [phone] | | ARSH CASTANON | [facility] | [address] | | + + + + + [...] + | [facility] | [address] | [place] | [phone] | | [facility] | | [address] | | | - LABORATORY | | [...] + | [facility] | [address] | [place] | [phone] | | [facility] | | [address] | | | - LABORATORY | | [...] [address] | [place] | [phone] | | [facility] | | [address] | | | - LABORATORY | | [...] + | [facility] | [address] | [place] | [phone] | | [facility] | | [address] | | | [...] | mL/min/1.73m2 | MICHELLE | | | NORTH [place]OREAN | RATE,ESTIMATED | | MEDICAL | | | | mL/min/1.20m5Ybqy than | | CENTER - | | [...] [address] | [place] | [phone] | | [facility] | | [address] | | | - LABORATORY | | [...] day), First | | | dose on [facility] 04/13/19 at 1400, | | | Start 8 hours after pre-op dose., | | | Post-op/Phase II | | + +---+ | | | + +---+ | albuterol 2.5 mg/3 mL nebulizer | | | solution 2.5 mg 2.5 mg, | | | Nebulization, ONCE PRN, Wheezing, | | | Starting [facility] 04/13/19 at 0917, | | | [...] HR < 40, | | | Starting [facility] 04/13/19 at 0917, For | | [...] | | | | | | | hkiwjy-aye-oezit use of at least | | | [...] day), | | | First dose on [facility] 04/13/19 at | | | 2030, [...] | | | | | CONTINUOUS, Starting [facility] 04/13/19 | | AM PDT | | | | | at 0700, TKO., Pre-op | | | | | | + +---------+ +---+---+---+ + +---+ | | | + +---+ | midazolam (VERSED) 1 mg/mL | | | injection 0.5-2 mg 0.5-2 mg, | | | Intravenous, EVERY 5 MIN PRN, | | | Anxiety, or agitation, Starting | | | [facility] 04/13/19 at 0917, Maximum | | [...]
--- OUTSIDE RECORDS SUMMARY | ~2020-04-15 | XMS | Encounter Summary ---
Demographics + + + | Address | [address] | | | [place] [address] | + + + | Home Phone [...] Providers + +------+ + | Care Wire Spinner Name | Role | Phone | + +------+ + | Kirk French MD | PCP | | + +------+ + Encounter Details +--------+ + + + + | Date | Type | Department | Care Team | Description | +--------+ + + + + | 01/25/ | Hospital | [facility] | Daljit Singletary, | Stable angina | | 2019 | Encounter | MED CTR CV INTRA OP | MD [address] | pectoris (HCC) | | | | [address] | [address], | | | | | [place] | [place] [address] | | | | | [address] | [phone] | | | | | [phone] | | | +--------+ + + + [...] as a collagen plugis used on the roark triny site to close the site, you [...] by your healthcare provider Date Last Reviewed: 09/22/201619997063-7191 [employer]. [address] [place] [address]. All righ ts reserved. This information is [...] + + + +---------+ + + | [place]-3 Fatty | CAPS, one capsule by | [...] | | | | | [place], | | | | | | [place] [address] | | | | | | [phone] | | | | | | | [...] | | | | | | [place] [address] | | | | | | [phone] | | | | | | | | +--------+ + + + + | 05/21/ | Implant | Cardiology | Daljit Singletary, | Remote Device | | 2019 | Monitor | | MD [address] | Interrogation | | | | | [place], | (Primary Dx); | | | | | [place] [address] | Pacemaker; | | | | | [phone] | Sinoatrial node | | | | [...] (1960) MEDICAL RECORD NUMBER: | | | [id number] OF PROCEDURE: 01/25/2019 DIRECTOR OF NURSING: Daljit | | | MD Gemini PROCEDURES [...] Sanchez, (1960) | | OF PROCEDURE: 01/25/2019PRIMARY SOFTWARE VALIDATION TECHNICIAN: Daljit Singletary MD PROCEDURES | | PERFORMED:Coronary [...] | Aggressive medical management. | | at 9:33PRCOMMUNITY HEALTHRY CARE PROVIDER:Kirk French MDFor additional detail [...]
--- OUTSIDE RECORDS SUMMARY | ~2020-04-15 | XMS | Encounter Summary ---
Demographics + + + | Address | [address] | | | [place] [address] | + + + | Home Phone [...] Team Providers + +------+ + | Care Strategy Analyst Name | Role | Phone | [...] [place], [place] | | | | | [place] | | [address] Phone: | | | | | CYSTO/URETER | | [phone] | | | | | O | | Fax: | | | | | W/LITHOTRIPS | | [phone] | | | | | Y &INDWELL [...] + + | 04/13/ | Surgery | [facility] | Matthew Uriarte | Cystoscopy, Left | | 2018 | | MED CTR OR INTRA OP | Dahl, MD [address] | ureteroscopy with | | | | [address] | SADIEE [place] NGUYEN | laser lithotripsy, | | | | [place] | [address] | Left ureteral stent | | | | [address] | | placement | | | | [phone] | | | +--------+---------+ + + + [...] + + +---------+ + + | [place]-3 Fatty | CAPS, one capsule by | [...] | | | | | | | [place] coronary | | | | | | | artery of little traverse | | | | | | | [...] W | | | | | | [place], | | | | | | [place] [address] | | | | | | [phone] | | | | | | | | +--------+ + + + + | 05/01/ | Procedure | Cardiology | | | | 2019 | visit | | | | +--------+ + + + + | 05/01/ | Office | Cardiology | Silvia, | | | 2019 | Visit | | PARISA [address] | | | | | | [place], | | | | | | [place] [address] | | | | | | [phone] | | | | | | | | +--------+ + + + + | 05/21/ | Implant | Cardiology | Daljit Singletary, | Remote Device | 2019 | Monitor | | [address] | Interrogation | | | | | [place], | (Primary Dx); | | | | | [place] [address] | Pacemaker; | | | | | [phone] | Sinoatrial node | | | | [...] [facility] | | | | | | at:[phone]. | | | | + + + [...] + + | Performed at: 01 - [facility] [place] [address] [facility], | REFERENCE LAB | | [place], [place] [id number] Security Operations Center Analyst: Yeny Rios MD, Phone: | ARSH CASTANON | | [phone] | | + + + + + + + + | Performing | Address | City/State/Zipcode | Phone Number | | Organization | | | | + + + + + | REFERENCE LAB | [address] | [place], [place] | [phone] | | ARSH CASTANON | [facility] | [address] | | + + + + + [...] + | [facility] | [address] | [place] | [phone] | | [facility] | | [address] | | | - LABORATORY | | [...] + | [facility] | [address] | [place] | [phone] | | [facility] | | [address] | | | - LABORATORY | | [...] [address] | [place] | [phone] | | [facility] | | [address] | | | - LABORATORY | | [...] [facility] | | | | | | STu[facility] [address] | | | | | [...] + | [facility] | [address] | [place] | [phone] | | [facility] | | [address] | | | - LABORATORY | | [...] | mL/min/1.73m2 | MICHELLE | | | SRI LANKAN | RATE,ESTIMATED | | MEDICAL | | | | mL/min/1.90e8Ayls than | | CENTER - | | [...] [address] | [place] | [phone] | | [facility] | | [address] | | | - LABORATORY | | [...] First | | | dose on [facility] 04/13/19 at 1400, | | | Start 8 hours after pre-op dose., | | | Post-op/Phase II | | + +---+ | | | + +---+ | albuterol 2.5 mg/3 mL nebulizer | | | solution 2.5 mg 2.5 mg, | | | Nebulization, ONCE PRN, Wheezing, | | | Starting [facility] 04/13/19 at 0917, | | | [...] < 40, | | | Starting [facility] 04/13/19 at 0917, For | | [...] | | | | | | | qikdhw-ytf-xscxr use of at least | | | [...] | | | First dose on [facility] 04/13/19 at | | | 2030, [...] | | | | | CONTINUOUS, Starting [facility] 04/13/19 | | AM PDT | | | | | at 0700, TKO., Pre-op | | | | | | + +---------+ +---+---+---+ + +---+ | | | + +---+ | midazolam (VERSED) 1 mg/mL | | | injection 0.5-2 mg 0.5-2 mg, | | | Intravenous, EVERY 5 MIN PRN, | | | Anxiety, or agitation, Starting | | | [facility] 04/13/19 at 0917, Maximum | | [...]
--- OUTSIDE RECORDS SUMMARY | ~2020-04-15 | XMS | Encounter Summary ---
Demographics + + + | Address | [address] | | | [place] [address] | + + + | Home Phone [...] Team Providers + +------+ + | Care Twenty One Dealer Name | Role | Phone | [...] [address] | | | | | | [place], [place] | (Fax) | | | | | [address] | | | | | | [phone] | | | +--------+ + + + [...] | | | | | | [place] [address] | | | | | | [phone] | | | | | | | [...] | | | | | | [place] [address] | | | | | | [phone] | | | | | | | | +--------+ + + + + | 05/21/ | Implant | Cardiology | Daljit Singletary, | Remote Device | | 2019 | Monitor | | [address] | Interrogation | | | | | [place], | (Primary Dx); | | | | | [place] [address] | Pacemaker; | | | | | [phone] | Sinoatrial node | | | | | | dysfunction (HCC) | | | | | | with symptomatic | | | | | | bradycardia | +--------+ + + + + documented as of this encounter Visit Diagnoses Not on filedocumented in this encounter"
--- OUTSIDE RECORDS SUMMARY | ~2020-04-15 | XMS | Encounter Summary ---
Demographics + + + | Address | [address] | | | [place] [address] | + + + | Home Phone [...] Providers + +------+ + | Care Train Announcer Name | Role | Phone | + [...] + + | 10/25/ | Telephone | [facility] | Silvia, | Other (patient has | | 2013 | | CARDIOLOGY [address] | Janeen CASING MAN [address] | changed his mind) | | | | [place], | [place], | | | | | [place] [address] | [place] [address] | | | | | [phone] | [phone] | | | | | | | [...] | | | | | | [place], | | | | | | [place] [address] | | | | | | [phone] | | | | | | | | +--------+ + + + + | 05/01/ | Procedure | Cardiology | | | | 2019 | visit | | | | +--------+ + + + + | 05/01/ | Office | Cardiology | Silvia, | | | 2019 | Visit | | PARISA Vernon [address] | | | | | | [place], | | | | | | [place] [address] | | | | | | [phone] | | | | | | | | +--------+ + + + + | 05/21/ | Implant | Cardiology | Daljit Singletary, | Remote Device | | 2019 | Monitor | | [facility] | Interrogation | | | | | [place], | (Primary Dx); | | | | | [place] [address] | Pacemaker; | | | | | [phone] | Sinoatrial node | | | | | | dysfunction (HCC) | | | | | | with symptomatic | | | | | | bradycardia | +--------+ + + + + documented as of this encounter Visit Diagnoses Not on filedocumented in this encounter"
--- OUTSIDE RECORDS SUMMARY | ~2020-04-15 | XMS | Encounter Summary ---
Demographics + + + | Address | [address] | | | [place] [address] | + + + | Home Phone [...] Providers + +------+ + | Care Heel Molder Name | Role | Phone | [...] | Visit | CARDIOLOGY [address] | VALET RUNNER [address] [place] | Dx) | | | | [place], | [place], [place] | | | | | [place] [address] | [address] | | | | | [phone] | | | +--------+---------+ + + + [...] Sanchez Date: December 21, 2012 : 1960 Telecommunications Network Engineer: PARISA Velazquez Device Medicare Nurse: Med[employer]onic Sense (mV) Impedance (?) Capture (V) Capture (ms) A Lead 4-5.6 423 1.5 0.09 RV Lead >31.36 539 2.0 0.09 LV Lead Battery Impedance (?): 301 Battery Voltage (V): 2.8 ND Interval (ms): 140 AR Interval (ms): 210 VA Conduction: Mode Switch Events: N/A % of time: -DIRECTORY OPERATOR: 0.6 AP-DIRECTORY OPERATOR: 1.3 -VS: 23.9 AP-VS: 74.2 DIRECTORY OPERATOR: Magnetic Rate: 85 LINDA: 65 LEAH: [...] | | | | | | [place] [address] | | | | | | [phone] | | | | | | | | +--------+ + + + + | 05/01/ | Procedure | Cardiology | | | | 2019 | visit | | | | +--------+ + + + + | 05/01/ | Office | Cardiology | Silvia, | | | 2019 | Visit | | PARISA Vernon [address] | | | | | | [place], | | | | | | [place] [address] | | | | | | [phone] | | | | | | | | +--------+ + + + + | 05/21/ | Implant | Cardiology | Daljit Singletary, | Remote Device | 2019 | Monitor | | [address] [place] | Interrogation | | | | | [place], | (Primary Dx); | | | | | [place] [address] | Pacemaker; | | | | | [phone] | Sinoatrial node | | | | [...]
--- OUTSIDE RECORDS SUMMARY | ~2020-04-15 | XMS | Encounter Summary ---
Demographics + + + | Address | [address] | | | [place] [address] | + + + | Home Phone [...] Providers + +------+ + | Care Electrical Assemblies Supervisor Name | Role | Phone | [...] | Refill | [facility] [place] | eGri Angel, | Medication Refill | | 2016 | | CARDIOLOGY [address] | BAKED GOODS STOCK CLERK [address] [place] | | | | | [place], | [place], [place] | | | | | [place] [address] | [address] | | | | | [phone] | | | +--------+--------+ + + + [...] W | | | | | | [place], | | | | | | [place] [address] | | | | | | [phone] | | | | | | | | +--------+ + + + + | 05/01/ | Procedure | Cardiology | | | | 2019 | visit | | | | +--------+ + + + + | 05/01/ | Office | Cardiology | Silvia, | | | 2019 | Visit | | PARISA Vernon W | | | | | | [place], | | | | | | [place] [address] | | | | | | [phone] | | | | | | | | +--------+ + + + + | 05/21/ | Implant | Cardiology | Daljit Singletary, | Remote Device | | 2019 | Monitor | | [facility] | Interrogation | | | | | [place], | (Primary Dx); | | | | | [place] [address] | Pacemaker; | | | | | [phone] | Sinoatrial node | | | | | | dysfunction (HCC) | | | | | | with symptomatic | | | | | | bradycardia | +--------+ + + + + documented as of this encounter Visit Diagnoses Not on filedocumented in this encounter"
--- OUTSIDE RECORDS SUMMARY | ~2020-04-15 | XMS | Encounter Summary ---
Demographics + + + | Address | [address] | | | [place] [address] | + + + | Home Phone [...] Team Providers + +------+ + | Care Flat Grinder Operator Name | Role | Phone [...] 2019 | | GASTROENTEROLOGY | [address] [place], [place] | | | | | [address] [place] | [address] [place], [place] | | | | | [address] [place], [place] | [address] | | | | | [address] | | | | | | [phone] | | | +--------+ + + + [...] | | | | | | [place] [address] | | | | | | [phone] | | | | | | | | +--------+ + + + + | 05/01/ | Procedure | Cardiology | | | | 2019 | visit | | | | +--------+ + + + + | 05/01/ | Office | Cardiology | Silvia, | | | 2019 | Visit | | PARISA Vernon [address] | | | | | | [place], | | | | | | [place] [address] | | | | | | [phone] | | | | | | | | +--------+ + + + + | 05/21/ | Implant | Cardiology | Daljit Singletary, | Remote Device | 2019 | Monitor | | [address] | Interrogation | | | | | [place], | (Primary Dx); | | | | | [place] [address] | Pacemaker; | | | | | [phone] | Sinoatrial node | | | | [...]
--- OUTSIDE RECORDS SUMMARY | ~2020-04-15 | XMS | Encounter Summary ---
Demographics + + + | Address | [address] | | | [place] [address] | + + + | Home Phone [...] Providers + +------+ + | Care Powder Hand Name | Role | Phone | [...] Refill | | 2013 | | [facility] [place] | DO [address] | | | | | [address] | [place] | | | | | [place] | [address] | | | | | [address] | | | | | | [phone] | | | +--------+--------+ + + + [...] | | | | | | [place] [address] | | | | | | [phone] | | | | | | | [...] | | | | | | [place] [address] | | | | | | [phone] | | | | | | | | +--------+ + + + + | 05/21/ | Implant | Cardiology | Daljit Singletary, | Remote Device | | 2019 | Monitor | | [facility] | Interrogation | | | | | [place], | (Primary Dx); | | | | | [place] [address] | Pacemaker; | | | | | [phone] | Sinoatrial node | | | | | | dysfunction (HCC) | | | | | | with symptomatic | | | | | | bradycardia | +--------+ + + + + documented as of this encounter Visit Diagnoses Not on filedocumented in this encounter"
--- OUTSIDE RECORDS SUMMARY | ~2020-04-15 | XMS | Encounter Summary ---
Demographics + + + | Address | [address] | | | [place] [address] | + + + | Home Phone [...] Providers + +------+ + | Care Painter Aircraft Name | Role | Phone | [...] Provider Unknown | | | | | [place], [place] | [phone] | | | | | [address] | | | | | | [phone] | | | +--------+ + + + [...] + + + +---------+ + + | [place]-3 Fatty | CAPS, one capsule by [...] | | | | | | [place] [id number] | | | | | | [phone] | | | | | | | | +--------+ + + + + | 05/01/ | Procedure | Cardiology | | | | 2019 | visit | | | | +--------+ + + + + | 05/01/ | Office | Cardiology | Silvia, | | | 2019 | Visit | | PARISA Vernon W | | | | | | [place], | | | | | | [place] [id number] | | | | | | [phone] | | | | | | | | +--------+ + + + + | 05/21/ | Implant | Cardiology | Daljit Singletary, | Remote Device | 2019 | Monitor | | [address] [place] | Interrogation | | | | | [place], | (Primary Dx); | | | | | [place] [id number] | Pacemaker; | | | | | [phone] | Sinoatrial node | | | | | | dysfunction ([facility]) | | | | | [...]
--- OUTSIDE RECORDS SUMMARY | ~2020-04-15 | XMS | Encounter Summary ---
Demographics + + + | Address | [address] | | | [place] [address] | + + + | Home Phone [...] Providers + +------+ + | Care Jewelry Dipper Name | Role | Phone | [...] [address] | | | | | [place], | [place], | | | | | [place] [address] | [place] [address] | | | | | [phone] | [phone] | | | | | | | [...] W | | | | | | [place], | | | | | | [place] [address] | | | | | | [phone] | | | | | | | | +--------+ + + + + | 05/01/ | Procedure | Cardiology | | | | 2019 | visit | | | | +--------+ + + + + | 05/01/ | Office | Cardiology | Silvia, | | | 2019 | Visit | | PARISA Vernon W | | | | | | [place], | | | | | | [place] [address] | | | | | | [phone] | | | | | | | | +--------+ + + + + | 05/21/ | Implant | Cardiology | Daljit Singletary, | Remote Device | | 2019 | Monitor | | [facility] | Interrogation | | | | | [place] [place], | (Primary Dx); | | | | | [place] [address] | Pacemaker; | | | | | [phone] | Sinoatrial node | | | | | | dysfunction (HCC) | | | | | | with symptomatic | | | | | | bradycardia | +--------+ + + + + documented as of this encounter Visit Diagnoses Not on filedocumented in this encounter"
--- OUTSIDE RECORDS SUMMARY | ~2020-04-15 | XMS | Encounter Summary ---
Demographics + + + | Address | [address] | | | [place] [address] | + + + | Home Phone [...] Team Providers + +------+ + | Care Scarf And Anneal Operator Name | Role | Phone | + +------+ + PCP | Unavailable | + +------+ + Encounter Details +--------+ + + + + | Date | Type | Department | Care Team | Description | +--------+ + + + + | 09/08/ | [facility] | [facility] | Naresh Mckeon | | | 1998 | Encounter | MED CTR SLEEP | MD Chaya [address] | | | | | CENTER [address] | [place] | | | | | [place] | [place] [address] | | | | | [address] | [phone] | | | | | [phone] | | | +--------+ + + + [...] W | | | | | | [place], | | | | | | [place] [address] | | | | | | [phone] | | | | | | | | +--------+ + + + + | 05/01/ | Procedure | Cardiology | | | | 2019 | visit | | | | +--------+ + + + + | 05/01/ | Office | Cardiology | Silvia | | | 2019 | Visit | | [address] | | | | | | [place], | | | | | | [place] [address] | | | | | | [phone] | | | | | | | | +--------+ + + + + | 05/21/ | Implant | Cardiology | Daljit Singletary, | Remote Device | 2019 | Monitor | | MD [address] [place] | Interrogation | | | | | [place], | (Primary Dx); | | | | | [place] [address] | Pacemaker; | | | | | [phone] | Sinoatrial node | | | | | | dysfunction (HCC) | | | | | | with symptomatic | | | | | | bradycardia | +--------+ + + + + documented as of this encounter Visit Diagnoses Not on filedocumented in this encounter"
--- OUTSIDE RECORDS SUMMARY | ~2020-04-15 | XMS | Encounter Summary ---
Demographics + + + | Address | [address] | | | [place] [address] | + + + | Home Phone [...] Providers + +------+ + | Care Radio Technician Name | Role | Phone | [...] 2019 | | GASTROENTEROLOGY | [address] [place] | | | | | [address] [place] | [address] [place], [place] | | | | | [address] [place], [place] | [address] | | | | | [address] | | | | | | [phone] | | | +--------+ + + + [...] | | | | | | [place] [address] | | | | | | [phone] | | | | | | | | +--------+ + + + + | 05/01/ | Procedure | Cardiology | | | | 2019 | visit | | | | +--------+ + + + + | 05/01/ | Office | Cardiology | Silvia, | | | 2019 | Visit | | [address] | | | | | | [place], | | | | | | [place] [address] | | | | | | [phone] | | | | | | | | +--------+ + + + + | 05/21/ | Implant | Cardiology | Daljit Singletary, | Remote Device | 2019 | Monitor | | MD [address] | Interrogation | | | | | [place], | (Primary Dx); | | | | | [place] [address] | Pacemaker; | | | | | [phone] | Sinoatrial node | | | | | | dysfunction (HCC) | | | | | | with symptomatic | | | | | | bradycardia | +--------+ + + + + documented as of this encounter Visit Diagnoses Not on filedocumented in this encounter"
--- OUTSIDE RECORDS SUMMARY | ~2020-04-15 | XMS | Encounter Summary ---
Demographics + + + | Address | [address] | | | [place] [address] | + + + | Home Phone [...] Providers + +------+ + | Care First Aid Teacher Name | Role | Phone | [...] [address] | | | | | [place], | [place], | | | | | [place] [address] | [place] [address] | | | | | [phone] | [phone] | | | | | | | [...] W | | | | | | [place], | | | | | | [place] [address] | | | | | | [phone] | | | | | | | | +--------+ + + + + | 05/01/ | Procedure | Cardiology | | | | 2019 | visit | | | | +--------+ + + + + | 05/01/ | Office | Cardiology | Silvia, | | | 2019 | Visit | | [address] | | | | | | [place], | | | | | | [place] [address] | | | | | | [phone] | | | | | | | | +--------+ + + + + | 05/21/ | Implant | Cardiology | Daljit Singletary, | Remote Device | 2019 | Monitor | | MD [address] [place] | Interrogation | | | | | [place], | (Primary Dx); | | | | | [place] [address] | Pacemaker; | | | | | [phone] | Sinoatrial node | | | | [...] Comment | + + | [facility] | + + + +---------+ + + [...] Comment | + + | [facility] | + + + +---------+ + + [...] Comment | + + | [facility] | + + + +---------+ + + [...]
--- OUTSIDE RECORDS SUMMARY | ~2020-04-15 | XMS | Encounter Summary ---
Demographics + + + | Address | [address] | | | [place] [address] | + + + | Home Phone [...] Team Providers + +------+ + | Care Tent Worker Name | Role | Phone | [...] [address] | | | | | [place], | [place], | | | | | [place] [address] | [place] [address] | | | | | [phone] | [phone] | | | | | | | [...] | | | | | | [place] [address] | | | | | | [phone] | | | | | | | | +--------+ + + + + | 05/01/ | Procedure | Cardiology | | | | 2019 | visit | | | | +--------+ + + + + | 05/01/ | Office | Cardiology | Silvia, | | | 2019 | Visit | | [address] | | | | | | [place], | | | | | | [place] [address] | | | | | | [phone] | | | | | | | | +--------+ + + + + | 05/21/ | Implant | Cardiology | Daljit Singletary, | Remote Device | | 2019 | Monitor | | [facility] | Interrogation | | | | | [address] [place], | (Primary Dx); | | | | | [place] [address] | Pacemaker; | | | | | [phone] | Sinoatrial node | | | | | | dysfunction (HCC) | | | | | | with symptomatic | | | | | | bradycardia | +--------+ + + + + documented as of this encounter Visit Diagnoses Not on filedocumented in this encounter"
--- OUTSIDE RECORDS SUMMARY | ~2020-04-15 | XMS | Encounter Summary ---
Demographics + + + | Address | [address] [place] [address] [address] | | | [place] [address] | + + + | Home Phone [...] + + + + + | Rachel Valencai | ELIEZER | [place] | | | | | [address] | | + + + + + Care Team Providers + +------+ + | Care Automobile Relocation Engineer Name | Role | Phone | [...] CHH2 3485 | MD [address] | Review | | | | [address] | [facility] [place] | | | | | Mailcode: [place] | [address] | | | | | for Health and | [phone] | | | | | [facility] | | | | | | [place], [place] | | | | | | [address] | | | | | | [phone] | | | +--------+ + + + [...]
--- OUTSIDE RECORDS SUMMARY | ~2020-04-15 | XMS | Encounter Summary ---
Demographics + + + | Address | [address] | | | [place] [address] | + + + | Home Phone [...] Team Providers + +------+ + | Care Leave Manager Name | Role | Phone | [...] | | | | | Ascending | Silvia | [address] | | | | | aortic | Janeen, INDUSTRIAL RECRUITER | [place], | | | | | aneurysm | [address] | [place] [address] | | | | | (HCC) | [place] | Phone: | | | | | Abdominal | [place], | [phone] | | | | | aortic | [place] | Fax: | | | | | aneurysm | [address] | [phone] | | | | | (AAA) | Phone: | | | | | | without | [phone] | | | | | | rupture | Fax: | | | | | | (HCC) | [phone] | | | | | | Procedures [...] | unspecified | MD Martell | [address] | | | | | type ER | [address] | [address] | | | | | FUP | [place] | [place], | | | | | Procedures | [place], [place] | [place] [address] | | | | | FUP - SUW & | [address] | Phone: | | | | | MISHA PT, LAST | Phone: | [phone] | | | | | SEEN | [phone] | Fax: | | | | | 08-24-18 | Fax: | [phone] | | | | | | [phone] | | +--------+ + + + + + Encounter Details +--------+---------+ + + + | Date | Type | Department | Care Team | Description | +--------+---------+ + + + | 01/11/ | Office | [facility] | Silvia, | Coronary artery | | 2019 | Visit | CARDIOLOGY [address] | [place] [address] | disease involving | | | | [place], | [place], | tribe coronary | | | | [place] [address] | [place] [address] | artery of tribe | | | | [phone] | [phone] | heart without angina | | | [...] encounter Patient Instructions Patient Instructions Christine Rodriguez, Commercial Light Fixture Assembler - 01/11/2019 12:45 PM PST 1. [...] Check-in time: 1. Check in at the [facility]. 2. Do not [...] procedure. 6. Make sure you have a pile driver operator helper to take you home. Your pile driver operator helper will also need to sign you ou [...] hospital line at and ask for nursing research dairy farm supervisor t o let them know you are cancelling . Blood test: Non-fasting Date Due: same day as CTA Where to go for labs: [facility]- [address] [facility]. CTA of Chest and Abdomen: Date: Check-In [...] of non-critical coronary artery d isease involving tribe coronary artery of tribe heart without angina pectoris, essential h ypertension, [...] Preventative health care Coronary artery disease involving tribe coronary artery of tribe heart without angina pectoris Cannabis abuse, daily [...] 3RD DOSE, CALL 911 100 tablet 3 [place]-3 Fatty Acids (SALMON OIL-1000 PO) CAPS, one capsule by mouth daily twice daily ondansetron (ZOFRAN ODT) 4 mg disintegrating tablet Take 4 mg by mouth. ONE TOUCH DELICA LANCETS [facility] Check glucose as needed for hypoglycemia 100 [...] No significant change was found Confirmed by HIREN WINKLER, ANGELA ([id number]) on 01/03/2019 8:10:39 PM LAB RESULTS reviewed during visit today primarily from [facility]: LIPID Lab Results Component Value [...] the HPI. RESULTS- I reviewed reports from [facility]: Xr Chest Ap Portable Result Date: [...] ASSESSMENT: 1. Non-critical Coronary artery disease involving tribe coronary artery of tribe heart wi thout angina pectoris: A. Normal exercise sestamibi stress [...] [facility] on 01/30/2013. Patient had spontaneous PVC's [...] go back in 3 days t o [place] for an attempt of ablation under general [...] office if he has any further problems IChristine Commercial Light Fixture Assembler am acting as a scribe on behalf of, and in the pres ence of PARISA Lomas. - Reji Newman 01/11/2019 13:46 I, PARISA Lomas, personally performed the services described in this documentati on, as scribed in my presence and it is both accurate and complete. -PARISA Lomas 01/11/2019 Portions of this chart may have been created with [employer] voice recognition software. Occasi onal wrong-word or [...] | | | | | | [place] [address] | | | | | | [phone] | | | | | | | [...] | | | | | | [place] [address] | | | | | | [phone] | | | | | | | | +--------+ + + + + | 05/21/ | Implant | Cardiology | Daljit Singletary, | Remote Device | | 2019 | Monitor | | MD [address] [place] | Interrogation | | | | | [place], | (Primary Dx); | | | | | [place] [address] | Pacemaker; | | | | | [phone] | Sinoatrial node | | | | [...] + + | Coronary artery disease involving tribe coronary artery of tribe heart without | | angina pectoris - [...]
--- OUTSIDE RECORDS SUMMARY | ~2020-04-15 | XMS | Encounter Summary ---
Demographics + + + | Address | [address] | | | [place] [address] | + + + | Home Phone [...] Providers + +------+ + | Care Chief Executive Or Managing Director Name | Role | Phone [...] | | | pain | [address] | [address] | | | | | Procedures | [place] | [place], | | | | | [place] Nuclear | [place], [place] | [place] | | | | | Stress Test | [address] | [address] | | | | | (Vasodilator | Phone: | Phone: | | | | | ) CHG | [phone] | [phone] | | | | | MYOCARDIAL | Fax: | Fax: | | | | | SPECT | [phone] | [phone] | | | | | MULTIPLE | [...] 2012 | | CARDIOLOGY [address] | CHICKEN DRESSER [address] | interactions, chest | | | | [address] [place], | [place], [place] | pain) | | | | [place] [address] | [address] | | | | | [phone] | | | +--------+ + + + [...] | | | | | | [place] [address] | | | | | | [phone] | | | | | | | [...] | | | | | | [place] [address] | | | | | | [phone] | | | | | | | | +--------+ + + + + | 05/21/ | Implant | Cardiology | SunshinecherelleDaljit, | Remote Device | | 2019 | Monitor | | MD [address] | Interrogation | | | | | [place], | (Primary Dx); | | | | | [place] [address] | Pacemaker; | | | | | [phone] | Sinoatrial node | | | | [...] At | + + + | [facility] | [place] | | Department [address] [facility] [place] | [place] | | [ rep [address]] [ rep [facility] | | [facility]] Signed | - IMAGING | | | | | Patient Name: MOE GAY | | | Physician: JACKLYN : 1960 Age: 53 Sex: M Unit | | | #: [id number] Exam Date: 12/06/13 Location: | | | [facility] Report #: [id number] Page: | | | %(RAD)RES..mtdd.print.filter("pg") of %(RAD) | | | RES..mtdd.print.filter("tpg") | | | | | | Accession Number: [id number] | | | PERSANTINE SESTAMIBI STRESS TEST, [...] Transcribed Date/Time: 12/07/2013 08:18 | | | Banjo Repair Person: <<Signature on File>> | | | | | | Daljit Singletary MD [facility] FASE12/07/13 1321 <Electronically signed | | | by Daljit Singletary MD, FAC, FACP, FASNanette, [facility]> Daljit | | | MD Gemini [facility] FASE 12/07/13 0701 Banjo Repair Person: [employer] | | | Nqkwruorlyrxd88/16/14 0818 PARISA Garcia | | + + + + + + + + | Performing | Address | City/State/Zipcode | Phone Number | | Organization | | | | + + + + + | [facility] | [address] | [place] | [phone] | | [facility] | | [address] | | | - IMAGING | | | | + + + + + documented in this encounter Visit Diagnoses + + | Diagnosis | + + | Other chest pain - Primary | + + documented in this encounter
--- OUTSIDE RECORDS SUMMARY | ~2020-04-15 | XMS | Encounter Summary ---
Demographics + + + | Address | [address] | | | [place] [address] | + + + | Home Phone [...] Team Providers + +------+ + | Care Desizing Machine Operator Head End Name | Role | Phone | + +------+ + PCP | Unavailable | + +------+ + Encounter Details +--------+ + + + + | Date | Type | Department | Care Team | Description | +--------+ + + + + | 04/23/ | Hospital | [facility] | | | | 2007 - | Encounter | MED CTR MED ONC | | | | | | [address] [place] | | | | 04/24/ | | [place] [address] | | | | 2007 | | [phone] | | | +--------+ + + + [...] | | | | | | [place] [address] | | | | | | [phone] | | | | | | | | +--------+ + + + + | 05/01/ | Procedure | Cardiology | | | | 2019 | visit | | | | +--------+ + + + + | 05/01/ | Office | Cardiology | Silvia, | | | 2019 | Visit | | [address] | | | | | | [place], | | | | | | [place] [address] | | | | | | [phone] | | | | | | | | +--------+ + + + + | 05/21/ | Implant | Cardiology | Daljit Singletary, | Remote Device | 2019 | Monitor | | [address] [place] | Interrogation | | | | | [place], | (Primary Dx); | | | | | [place] [address] | Pacemaker; | | | | | [phone] | Sinoatrial node | | | | | | dysfunction (HCC) | | | | | | with symptomatic | | | | | | bradycardia | +--------+ + + + + documented as of this encounter Visit Diagnoses Not on filedocumented in this encounter"
--- OUTSIDE RECORDS SUMMARY | ~2020-04-15 | XMS | Encounter Summary ---
Demographics + + + | Address | [address] | | | [place] [address] | + + + | Home Phone [...] Providers + +------+ + | Care Supply Analyst Name | Role | Phone | [...] | CARDIOLOGY [address] | [address] | Interrogation | | | | [place], | [place], | (Primary Dx); | | | | [place] [address] | [place] [address] | Presence of | | | | [phone] | [phone] | permanent cardiac | | | | [...] | | | | | | [place] [address] | | | | | | [phone] | | | | | | | | +--------+ + + + + | 05/01/ | Procedure | Cardiology | | | | 2019 | visit | | | | +--------+ + + + + | 05/01/ | Office | Cardiology | Silvia, | | | 2019 | Visit | | [address] | | | | | | [place], | | | | | | [place] [address] | | | | | | [phone] | | | | | | | | +--------+ + + + + | 05/21/ | Implant | Cardiology | Daljit Singletary, | Remote Device | | 2019 | Monitor | | [address] [facility] | Interrogation | | | | | [place], | (Primary Dx); | | | | | [place] [address] | Pacemaker; | | | | | [phone] | Sinoatrial node | | | | [...] Paceart documentation and remote PDF scanned into BoostSuite | | | for remote interrogation results. [...]
--- OUTSIDE RECORDS SUMMARY | ~2020-04-15 | XMS | Encounter Summary ---
Demographics + + + | Address | [address] | | | [place] [address] | + + + | Home Phone [...] Providers + +------+ + | Care Guest Experience Manager Name | Role | Phone | [...] [address] | | | | | | [place], [place] | (Fax) | | | | | [address] | | | | | | [phone] | | | +--------+ + + + [...] | | | | | | [place] [address] | | | | | | [phone] | | | | | | | | +--------+ + + + + | 05/01/ | Procedure | Cardiology | | | | 2019 | visit | | | | +--------+ + + + + | 05/01/ | Office | Cardiology | Silvia, | | | 2019 | Visit | | PARISA [address] | | | | | | [place], | | | | | | [place] [address] | | | | | | [phone] | | | | | | | | +--------+ + + + + | 05/21/ | Implant | Cardiology | Daljit Singletary, | Remote Device | | 2019 | Monitor | | [address] [place] | Interrogation | | | | | [place], | (Primary Dx); | | | | | [place] [address] | Pacemaker; | | | | | [phone] | Sinoatrial node | | | | | | dysfunction (HCC) | | | | | | with symptomatic | | | | | | bradycardia | +--------+ + + + + documented as of this encounter Visit Diagnoses Not on filedocumented in this encounter"
--- OUTSIDE RECORDS SUMMARY | ~2020-04-15 | XMS | Encounter Summary ---
Demographics + + + | Address | [address] | | | [place] [address] | + + + | Home Phone [...] Providers + +------+ + | Care Agricultural Science Professor Name | Role | Phone | + +------+ + PCP | Unavailable | + +------+ + Encounter Details +--------+ + + + + | Date | Type | Department | Care Team | Description | +--------+ + + + + | 10/19/ | Hospital | [facility] | | | | 1992 | Encounter | MED CTR EMERGENCY | | | | | | CENTER [address] | | | | | | [place] | | | | | | [address] | | | | | | [phone] | | | +--------+ + + + [...] | | | | | | [place] [address] | | | | | | [phone] | | | | | | | | +--------+ + + + + | 05/01/ | Procedure | Cardiology | | | | 2019 | visit | | | | +--------+ + + + + | 05/01/ | Office | Cardiology | Silvia, | | | 2019 | Visit | | PARISA Vernon [address] | | | | | | [place], | | | | | | [place] [address] | | | | | | [phone] | | | | | | | | +--------+ + + + + | 05/21/ | Implant | Cardiology | Daljit Singletary, | Remote Device | 2019 | Monitor | | [address] [place] | Interrogation | | | | | [place], | (Primary Dx); | | | | | [place] [address] | Pacemaker; | | | | | [phone] | Sinoatrial node | | | | | | dysfunction (HCC) | | | | | | with symptomatic | | | | | | bradycardia | +--------+ + + + + documented as of this encounter Visit Diagnoses Not on filedocumented in this encounter"
--- OUTSIDE RECORDS SUMMARY | ~2020-04-15 | XMS | Encounter Summary ---
Demographics + + + | Address | [address] | | | [place] [address] | + + + | Home Phone [...] Providers + +------+ + | Care Coordinator Volunteer Services Name | Role | Phone | [...] + + | 12/23/ | Telephone | [facility] | Emmanuel Daniel MD | Other (Needs to know | | 2017 | | GASTROENTEROLOGY | [address] [place] | what he can eat | | | | [address] [place] | [address] [place], [place] | today) | | | | [address] [place], [place] | [address] | | | | | [address] | | | | | | [phone] | | | +--------+ + + + [...] | | | | | | [place] [address] | | | | | | [phone] | | | | | | | | +--------+ + + + + | 05/01/ | Procedure | Cardiology | | | | 2019 | visit | | | | +--------+ + + + + | 05/01/ | Office | Cardiology | Silvia, | | | 2019 | Visit | | PARISA Vernon [address] | | | | | | [place], | | | | | | [place] [address] | | | | | | [phone] | | | | | | | | +--------+ + + + + | 05/21/ | Implant | Cardiology | Daljit Singletary, | Remote Device | | 2019 | Monitor | | [address] [facility] | Interrogation | | | | | [place], | (Primary Dx); | | | | | [place] [address] | Pacemaker; | | | | | [phone] | Sinoatrial node | | | | | | dysfunction (HCC) | | | | | | with symptomatic | | | | | | bradycardia | +--------+ + + + + documented as of this encounter Visit Diagnoses Not on filedocumented in this encounter"
--- OUTSIDE RECORDS SUMMARY | ~2020-04-15 | XMS | Encounter Summary ---
Demographics + + + | Address | [address] | | | [place] [address] | + + + | Home Phone [...] Providers + +------+ + | Care Finisher Map And Chart Name | Role | Phone | + [...] | CARDIOLOGY [address] | [address] | reprogramming/check | | | | [place], | [place], | DO NOT DELETE | | | | [place] [address] | [place] [address] | (Primary Dx); | | | | [phone] | [phone] | Sinoatrial node | | | | [...] | | | | | | [place] [address] | | | | | | [phone] | | | | | | | | +--------+ + + + + | 05/01/ | Procedure | Cardiology | | | | 2019 | visit | | | | +--------+ + + + + | 05/01/ | Office | Cardiology | Silvia | | | 2019 | Visit | | PARISA Vernon [address] | | | | | | [place], | | | | | | [place] [address] | | | | | | [phone] | | | | | | | | +--------+ + + + + | 05/21/ | Implant | Cardiology | Daljit Singletary, | Remote Device | | 2019 | Monitor | | [address] | Interrogation | | | | | [place], | (Primary Dx); | | | | | [place] [address] | Pacemaker; | | | | | [phone] | Sinoatrial node | | | | [...]
--- OUTSIDE RECORDS SUMMARY | ~2020-04-15 | XMS | Encounter Summary ---
Demographics + + + | Address | [address] | | | [place] [address] | + + + | Home Phone [...] Team Providers + +------+ + | Care Blood Bank Laboratory Professional Name | Role | Phone | + +------+ + PCP | Unavailable | + +------+ + Encounter Details +--------+ + + + + | Date | Type | Department | Care Team | Description | +--------+ + + + + | 02/28/ | [facility] | [facility] | Geri Angel, | | | 2011 | Encounter | MED CTR XRAY [address] | MILITARY PERSONNEL SPECIALIST [address] | | | | | [place] | [address] [place] | | | | | [place] [address] | [address] | | | | | [phone] | | | +--------+ + + + [...] W | | | | | | [place], | | | | | | [place] [address] | | | | | | [phone] | | | | | | | | +--------+ + + + + | 05/01/ | Procedure | Cardiology | | | | 2019 | visit | | | | +--------+ + + + + | 05/01/ | Office | Cardiology | Silvia, | | | 2019 | Visit | | [place]ISA [place] W | | | | | | [place], | | | | | | [place] [address] | | | | | | [phone] | | | | | | | | +--------+ + + + + | 05/21/ | Implant | Cardiology | Daljit Singletary, | Remote Device | | 2019 | Monitor | | [address] | Interrogation | | | | | [place], | (Primary Dx); | | | | | [place] [address] | Pacemaker; | | | | | [phone] | Sinoatrial node | | | | [...] At | + + + | [facility] Diagnostic Imaging Department | [facility] | | [address] | [facility] | | LEFT HEART CATHETERIZATION | [facility] | | REPORT 02/29/2012 HEMODYNAMICS: Aortic pressure [...] was taken to | | | Cardiac Tin Can Laborer. He was prepared and draped in the usual fashion | | | under a sterile technique and local anesthesia, percutaneous access | | | was obtained using #6- Albanian sheath in the right femoral artery. | | | Right heart cath was not performed in this patient. Left | | | ventriculography was performed using #6-Albanian pigtail catheter. | | | The selective coronary angiography were then performed in several | | | sagittal and oblique projection using the 6-Albanian JL 4 and #6 Albanian | | | 3DRC diagnostic catheters. The [...] Transcribed | | | Date/Time: 02/29/2012 09:09 Attorney: | | | <Electronically Signed by Daljit Singletary MD [facility]> 02/29/12 | | | 1002 | | + + + + + | Procedure Note | + + | Kalpesh Brown Conversion - 12/29/2013 5:04 PM [facility] | | Diagnostic Imaging Department | | [address] [facility] | | | | | | | [...] patient was taken to Cardiac | | Tin Can Laborer. He was prepared and draped in the usual fashion under a sterile | | technique and local anesthesia, percutaneous access was obtained using #6- | | Albanian sheath in the right femoral artery. Right heart cath was not performed | | in this patient. Left ventriculography was performed using #6-Albanian pigtail | | catheter. The selective coronary angiography were then performed in several | | sagittal and oblique projection using the 6-Albanian JL 4 and #6 Albanian 3DRC | | diagnostic catheters. The patient [...] | Transcribed Date/Time: 02/29/2012 09:09 | | Attorney: | | <Electronically Signed by Daljit Singletary MD [facility]> 02/29/12 1002 | + + + [...]
--- OUTSIDE RECORDS SUMMARY | ~2020-04-15 | XMS | Encounter Summary ---
Demographics + + + | Address | [address] | | | [place] [address] | + + + | Home Phone [...] Team Providers + +------+ + | Care Stamping Die Maker Bench Name | Role | Phone | + [...] | 02/16/ | Telephone | [facility] | Silvia, | Other (concerned | | 2012 | | CARDIOLOGY [address] | PAR[place] [address] | about palpitations) | | | | [place], | [place], | | | | | [place] [address] | [place] [address] | | | | | [phone] | [phone] | | | | | | | [...] W | | | | | | [place], | | | | | | [place] [address] | | | | | | [phone] | | | | | | | | +--------+ + + + + | 05/01/ | Procedure | Cardiology | | | | 2019 | visit | | | | +--------+ + + + + | 05/01/ | Office | Cardiology | Silvia, | | | 2019 | Visit | | PARISA Vernon [address] | | | | | | [place], | | | | | | [place] [address] | | | | | | [phone] | | | | | | | | +--------+ + + + + | 05/21/ | Implant | Cardiology | Daljit Singletary, | Remote Device | | 2019 | Monitor | | [facility] | Interrogation | | | | | [place], | (Primary Dx); | | | | | [place] [address] | Pacemaker; | | | | | [phone] | Sinoatrial node | | | | | | dysfunction (HCC) | | | | | | with symptomatic | | | | | | bradycardia | +--------+ + + + + documented as of this encounter Visit Diagnoses Not on filedocumented in this encounter"
--- OUTSIDE RECORDS SUMMARY | ~2020-04-15 | XMS | Encounter Summary ---
Demographics + + + | Address | [address] | | | [place] [address] | + + + | Home Phone [...] Providers + +------+ + | Care Natural Sciences Department Chair Name | Role | Phone | [...] + | 11/02/ | Telephone | [facility] | Daljit Singletary, | Other | | 2015 | | CARDIOLOGY [address] | MD [address] [place] | | | | | [place], | [place], | | | | | [place] [address] | [place] [address] | | | | | [phone] | [phone] | | | | | | | [...] | 05/01/ | Appointment | Radiology | Siliva, | | | 2019 | | | PARISA [address] | | | | | | [place], | | | | | | [place] [address] | | | | | | [phone] | | | | | | | [...] | | | | | | [place] [address] | | | | | | [phone] | | | | | | | | +--------+ + + + + | 05/21/ | Implant | Cardiology | Daljit Singletary, | Remote Device | | 2019 | Monitor | | [facility] | Interrogation | | | | | [place], | (Primary Dx); | | | | | [place] [address] | Pacemaker; | | | | | [phone] | Sinoatrial node | | | | | | dysfunction (HCC) | | | | | | with symptomatic | | | | | | bradycardia | +--------+ + + + + documented as of this encounter Visit Diagnoses Not on filedocumented in this encounter"
--- OUTSIDE RECORDS SUMMARY | ~2020-04-15 | XMS | Encounter Summary ---
Demographics + + + | Address | [address] [place] [address] [address] | | | [place] [address] | + + + | Home Phone [...] [place] | | | | | [address] | | + + + + + Care Team Providers + +------+ + | Care Full Charge Bookkeeper Name | Role | Phone | [...] | 2019 | | Center at [facility] [address] | MD [address] | | | | | [address] | [facility] [place] | | | | | Mailcode: [place] | [address] | | | | | for Health and | [phone] | | | | | [facility] 2 | | | | | | [facility] [place] | | | | | | [address] | | | | | | [phone] | | | +--------+ + + + [...]
--- OUTSIDE RECORDS SUMMARY | ~2020-04-15 | XMS | Encounter Summary ---
Demographics + + + | Address | [address] | | | [place] [address] | + + + | Home Phone [...] Providers + +------+ + | Care Restaurant Maintenance Technician Name | Role | Phone [...] W | question) | | | | [place] [facility], | [place], | | | | | [place] [address] | [place] [address] | | | | | [phone] | [phone] | | | | | | | [...] | | | | | | [place] [address] | | | | | | [phone] | | | | | | | | +--------+ + + + + | 05/01/ | Procedure | Cardiology | | | | 2019 | visit | | | | +--------+ + + + + | 05/01/ | Office | Cardiology | Silvia, | | | 2019 | Visit | | PARISA Vernon [address] | | | | | | [place], | | | | | | [place] [address] | | | | | | [phone] | | | | | | | | +--------+ + + + + | 05/21/ | Implant | Cardiology | Daljit Snigletary, | Remote Device | | 2019 | Monitor | | [address] [place] | Interrogation | | | | | [facility], | (Primary Dx); | | | | | [place] [address] | Pacemaker; | | | | | [phone] | Sinoatrial node | | | | | | dysfunction ([facility]) | | | | | | with symptomatic | | | | | | bradycardia | +--------+ + + + + documented as of this encounter Visit Diagnoses Not on filedocumented in this encounter"
--- OUTSIDE RECORDS SUMMARY | ~2020-04-15 | XMS | Encounter Summary ---
Demographics + + + | Address | [address] | | | [place] [address] | + + + | Home Phone [...] Providers + +------+ + | Care Feeder Catcher Tobacco Name | Role | Phone | + +------+ + | Kirk French MD | PCP | | + +------+ + Encounter Details +--------+ + + + + | Date | Type | Department | Care Team | Description | +--------+ + + + + | 04/11/ | Orders Only | [facility] | Emmaunel Polo | | | 2018 | | [address] | MD William [address] | | | | | [place] | [address] | | | | | [address] | [place] | | | | | [phone] | [address] | | | | | | [phone] | | | | | | | [...] | | | | | | [place] [address] | | | | | | [phone] | | | | | | | [...] | | | | | | [place] [address] | | | | | | [phone] | | | | | | | | +--------+ + + + + | 05/21/ | Implant | Cardiology | SunshinecherelleDaljit, | Remote Device | | 2019 | Monitor | | [address] [facility] | Interrogation | | | | | [place], | (Primary Dx); | | | | | [place] [address] | Pacemaker; | | | | | [phone] | Sinoatrial node | | | | [...]
--- OUTSIDE RECORDS SUMMARY | ~2020-04-15 | XMS | Encounter Summary ---
Demographics + + + | Address | [address] | | | [place] [address] | + + + | Home Phone [...] Providers + +------+ + | Care Production Supv Name | Role | Phone | + [...] 2015 | | CARDIOLOGY [address] | PLASTIC PRINTER [address] [place] | reprogramming/check | | | | [place], | [place], [place] | DO NOT DELETE | | | | [place] [address] | [address] | (Primary Dx); | | | | [phone] | | Pacemaker - | | | [...] | | | | | | [place], | | | | | | [place] [address] | | | | | | [phone] | | | | | | | | +--------+ + + + + | 05/01/ | Procedure | Cardiology | | | | 2019 | visit | | | | +--------+ + + + + | 05/01/ | Office | Cardiology | [place]via, | | | 2019 | Visit | | PARISA Vernon W | | | | | | [place], | | | | | | [place] [address] | | | | | | [phone] | | | | | | | | +--------+ + + + + | 05/21/ | Implant | Cardiology | Daljit Singletary, | Remote Device | | 2019 | Monitor | | [facility] | Interrogation | | | | | [place], | (Primary Dx); | | | | | [place] [address] | Pacemaker; | | | | | [phone] | Sinoatrial node | | | | [...] | | 2. Coronary artery disease involving [place] coronary artery of | | | [place] heart without angina pectoris I25.10 414.01 [...]
--- OUTSIDE RECORDS SUMMARY | ~2020-04-15 | XMS | Encounter Summary ---
Demographics + + + | Address | [address] | | | [place] [address] | + + + | Home Phone [...] Team Providers + +------+ + | Care Catalog Library Assistant Name | Role | Phone | [...] + + | 05/15/ | Office | [facility] UROLOGY | Matthew Uriarte | Kidney stones | | 2019 | Visit | [address] | MD Tawanna [address] | (Primary Dx) | | | | [place] | [place] | | | | | [address] | [address] | | | | | [phone] | | | +--------+---------+ + + + [...] disease Premature ventricular contraction [facility] 06/26/2013 LAST PSA:12/16/2010 RESULT:0.14 LAST [...] CV LHC; Surgeon: Daljit Singletary MD; Location: [facility] CV LAB CARDIAC CATHERIZATION N/A 01/25/2019 Procedure: CV Cor Angio; Surgeon: Daljit Singletary MD; Location: [facility] CV LAB COLONOSCOPY N/A 12/24/2017 Procedure: COLONOSCOPY; Surgeon: Emmanuel Daniel MD; Location: [facility] MEDICAL PROCEDURE UNIT COLONOSCOPY N/A 01/05/2019 Procedure: COLONOSCOPY; Surgeon: Emmanuel Daniel MD; Location: [facility] MEDICAL PROCEDURE UNIT EGD 12/24/2017 HARDWARE REMOVAL KNEE ARTHROSCOPY Bilateral KNEE SURGERY 2003 meniscus-right LAMINECTOMY 1991 L3-4 LUMBAR DISCECTOMY 1991 L3-4 LUMBAR FUSION 01/2011 6 spine fusions NECK SURGERY NECK SURGERY 08/10/2012 Fusion. [place] PACEMAKER PLACEMENT 06/14/2009 [employer] ROTATOR CUFF REPAIR Bilateral 03/22/2013 SINUS SURGERY 1998 SPINAL FUSION STOMACH SURGERY UPPER GASTROINTESTINAL ENDOSCOPY N/A 12/24/2017 Procedure: EGD; Surgeon: Emamnuel Daniel MD; Location: [facility] MEDICAL PROCEDURE UNIT UPPER GASTROINTESTINAL ENDOSCOPY N/A 01/05/2019 Procedure: EGD; Surgeon: Emmanuel Daniel MD; Location: [facility] MEDICAL PROCEDURE UNIT URETEROSCOPY Left 04/13/2019 Procedure: Cystoscopy, Left ureteroscopy with laser lithotripsy, Left ureteral stent place ment; Surgeon: Matthew Uriarte MD; Location: [facility] MAIN OR VASECTOMY Family History: Family History [...] 911, Disp: 100 ta blet, Rfl: 3 [place]-3 Fatty Acids (SALMON OIL-1000 PO), CAPS, one [...] pH, Urine 8.0 5.0 - 8.0 Specific [place] 1.008 1.001 - 1.030 Protein, Urine Negative [...] have not thoroughly proofread this note, and curing room supervisor errors are very likely to occur. CC: [...] | | | | | [place], | | | | | | [place] [address] | | | | | | [phone] | | | | | | | | +--------+ + + + + | 05/01/ | Procedure | Cardiology | | | | 2019 | visit | | | | +--------+ + + + + | 05/01/ | Office | Cardiology | Silvia, | | | 2019 | Visit | | PARISA Vernon [address] | | | | | | [place], | | | | | | [place] [address] | | | | | | [phone] | | | | | | | | +--------+ + + + + | 05/21/ | Implant | Cardiology | Daljit Singletary, | Remote Device | 2019 | Monitor | | MD [address] [place] | Interrogation | | | | | [place], | (Primary Dx); | | | | | [place] [address] | Pacemaker; | | | | | [phone] | Sinoatrial node | | | | [...]
--- OUTSIDE RECORDS SUMMARY | ~2020-04-15 | XMS | Encounter Summary ---
Demographics + + + | Address | [address] | | | [place] [address] | + + + | Home Phone [...] + +------+ + | Care Clinical Account Liaison Name | Role | Phone | [...] + + | 04/12/ | Telephone | [facility] | Daljit Singletary, | Other (issues with | | 2017 | | CARDIOLOGY [address] | MD [address] [place] | low blood pressure | | | | [place], | [place], | and dizziness) | | | | [place] [address] | [place] [address] | | | | | [phone] | | | | | | | [...] | | | | | | [place] [address] | | | | | | [phone] | | | | | | | | +--------+ + + + + | 05/01/ | Procedure | Cardiology | | | | 2020 | visit | | | | +--------+ + + + + | 05/01/ | Office | Cardiology | [place], | | | 2019 | Visit | | PARISA [address] | | | | | | [place], | | | | | | [place] [address] | | | | | | [phone] | | | | | | | | +--------+ + + + + | 05/21/ | Implant | Cardiology | Daljit Singletary, | Remote Device | 2019 | Monitor | | [address] [place] | Interrogation | | | | | [place], | (Primary Dx); | | | | | [place] [address] | Pacemaker; | | | | | [phone] | Sinoatrial node | | | | | | dysfunction (HCC) | | | | | | with symptomatic | | | | | | bradycardia | +--------+ + + + + documented as of this encounter Visit Diagnoses Not on filedocumented in this encounter"
--- OUTSIDE RECORDS SUMMARY | ~2020-04-15 | XMS | Encounter Summary ---
Demographics + + + | Address | [address] | | | [place] [address] | + + + | Home Phone [...] Team Providers + +------+ + | Care Pst Manager Name | Role | Phone | [...] + + | 08/04/ | Telephone | [facility] | [place], | Other (4 week event | | 2017 | | CARDIOLOGY [address] | PARISA [place] [address] | monitor ) | | | | [place], | [place], | | | | | [place] [address] | [place] [address] | | | | | [phone] | | | | | | | [...] | | | | | | [place] [address] | | | | | | [phone] | | | | | | | [...] | | | | | | [place] [address] | | | | | | [phone] | | | | | | | | +--------+ + + + + | 05/21/ | Implant | Cardiology | Daljit Singletary, | Remote Device | 2019 | Monitor | | [address] | Interrogation | | | | | [place], | (Primary Dx); | | | | | [place] [address] | Pacemaker; | | | | | [phone] | Sinoatrial node | | | | | | dysfunction (HCC) | | | | | | with symptomatic | | | | | | bradycardia | +--------+ + + + + documented as of this encounter Visit Diagnoses Not on filedocumented in this encounter"
--- OUTSIDE RECORDS SUMMARY | ~2020-04-15 | XMS | Encounter Summary ---
Demographics + + + | Address | [address] | | | [place] [address] | + + + | Home Phone [...] Providers + +------+ + | Care Press Tender Incendiary Grenade Name | Role | Phone | + +------+ + PCP | Unavailable | + +------+ + Encounter Details +--------+ + + + + | Date | Type | Department | Care Team | Description | +--------+ + + + + | 08/02/ | Hospital | [facility] | | | | 2001 | Encounter | MED CTR EMERGENCY | | | | | | [place] [address] | | | | | | [place] | | | | | | [address] | | | | | | [phone] | | | +--------+ + + + [...] | | | | | | [place] [address] | | | | | | [phone] | | | | | | | | +--------+ + + + + | 05/01/ | Procedure | Cardiology | | | | 2019 | visit | | | | +--------+ + + + + | 05/01/ | Office | Cardiology | [place], | | | 2019 | Visit | | [address] | | | | | | [place], | | | | | | [place] [address] | | | | | | [phone] | | | | | | | | +--------+ + + + + | 05/21/ | Implant | Cardiology | Daljit Singletary, | Remote Device | 2019 | Monitor | | [address] [place] | Interrogation | | | | | [place], | (Primary Dx); | | | | | [place] [address] | Pacemaker; | | | | | [phone] | Sinoatrial node | | | | | | dysfunction (HCC) | | | | | | with symptomatic | | | | | | bradycardia | +--------+ + + + + documented as of this encounter Visit Diagnoses Not on filedocumented in this encounter"
--- OUTSIDE RECORDS SUMMARY | ~2020-04-15 | XMS | Encounter Summary ---
Demographics + + + | Address | [address] | | | [place] [address] | + + + | Home Phone [...] Team Providers + +------+ + | Care Obstetrics/Gynecology Nurse Name | Role | Phone | + +------+ + PCP | Unavailable | + +------+ + Encounter Details +--------+ + + + + | Date | Type | Department | Care Team | Description | +--------+ + + + + | 10/13/ | Hospital | [facility] | | | | 2007 | Encounter | MED CTR EMERGENCY | | | | | | [place] [address] | | | | | | [place] | | | | | | [address] | | | | | | [phone] | | | +--------+ + + + [...] | | | | | | [place] [address] | | | | | | [phone] | | | | | | | | +--------+ + + + + | 05/01/ | Procedure | Cardiology | | | | 2019 | visit | | | | +--------+ + + + + | 05/01/ | Office | Cardiology | [place], | | | 2019 | Visit | | [address] | | | | | | [place], | | | | | | [place] [address] | | | | | | [phone] | | | | | | | | +--------+ + + + + | 05/21/ | Implant | Cardiology | Daljit Singletary, | Remote Device | 2019 | Monitor | | [address] [place] | Interrogation | | | | | [place], | (Primary Dx); | | | | | [place] [address] | Pacemaker; | | | | | [phone] | Sinoatrial node | | | | | | dysfunction (HCC) | | | | | | with symptomatic | | | | | | bradycardia | +--------+ + + + + documented as of this encounter Visit Diagnoses Not on filedocumented in this encounter"
--- OUTSIDE RECORDS SUMMARY | ~2020-04-15 | XMS | Encounter Summary ---
Demographics + + + | Address | [address] | | | [place] [address] | + + + | Home Phone [...] Providers + +------+ + | Care Community Education Specialist Name | Role | Phone [...] | Telephone | [facility] [place] | [place], | LABS | | 2019 | | CARDIOLOGY [address] | Janeen SENIOR UNDERWRITER [address] | | | | | [place], | [place], | | | | | [place] [address] | [place] [address] | | | | | [phone] | [phone] | | | | | | | [...] | | | | | | [place] [address] | | | | | | [phone] | | | | | | | | +--------+ + + + + | 05/01/ | Procedure | Cardiology | | | | 2020 | visit | | | | +--------+ + + + + | 05/01/ | Office | Cardiology | [place], | | | 2019 | Visit | | [address] | | | | | | [place], | | | | | | [place] [address] | | | | | | [phone] | | | | | | | | +--------+ + + + + | 05/21/ | Implant | Cardiology | Daljit Singletary, | Remote Device | | 2019 | Monitor | | [address] [place] | Interrogation | | | | | [place], | (Primary Dx); | | | | | [place] [address] | Pacemaker; | | | | | [phone] | Sinoatrial node | | | | [...]
--- OUTSIDE RECORDS SUMMARY | ~2020-04-15 | XMS | Encounter Summary ---
Demographics + + + | Address | [address] | | | [place] [address] | + + + | Home Phone [...] Providers + +------+ + | Care Lining Cementer Name | Role | Phone | + +------+ + PCP | Unavailable | + +------+ + Encounter Details +--------+ + + + + | Date | Type | Department | Care Team | Description | +--------+ + + + + | 06/25/ | [facility] | [facility] | Daljit Singletary, | | | 2008 | Encounter | MED CTR XRAY [address] | [address] [place] | | | | | [place] | [place], | | | | | [place] [address] | [place] [address] | | | | | [phone] | [phone] | | | | | | | [...] | | | | | | [place] [address] | | | | | | [phone] | | | | | | | [...] | | | | | | [place] [address] | | | | | | [phone] | | | | | | | | +--------+ + + + + | 05/21/ | Implant | Cardiology | Daljit Singletary, | Remote Device | 2019 | Monitor | | [address] [place] | Interrogation | | | | | [place], | (Primary Dx); | | | | | [place] [address] | Pacemaker; | | | | | [phone] | Sinoatrial node | | | | | | dysfunction (HCC) | | | | | | with symptomatic | | | | | | bradycardia | +--------+ + + + + documented as of this encounter Visit Diagnoses Not on filedocumented in this encounter"
--- OUTSIDE RECORDS SUMMARY | ~2020-04-15 | XMS | Encounter Summary ---
Demographics + + + | Address | [address] | | | [place] [address] | + + + | Home Phone [...] Team Providers + +------+ + | Care Interstate Bus Driver Name | Role | Phone [...] | Refill | [facility] [place] | [place], | Medication Refill | | 2014 | | CARDIOLOGY [address] | [place] [address] | | | | | [place], | [place], | | | | | [place] [address] | [place] [address] | | | | | [phone] | [phone] | | | | | | | [...] | | | | | | [place], | | | | | | [place] [address] | | | | | | [phone] | | | | | | | | +--------+ + + + + | 05/01/ | Procedure | Cardiology | | | | 2019 | visit | | | | +--------+ + + + + | 05/01/ | Office | Cardiology | [place], | | | 2019 | Visit | | [address] | | | | | | [place], | | | | | | [place] [address] | | | | | | [phone] | | | | | | | | +--------+ + + + + | 05/21/ | Implant | Cardiology | Daljit Singletary, | Remote Device | | 2019 | Monitor | | [address] [facility] | Interrogation | | | | | [place], | (Primary Dx); | | | | | [place] [address] | Pacemaker; | | | | | [phone] | Sinoatrial node | | | | | | dysfunction (HCC) | | | | | | with symptomatic | | | | | | bradycardia | +--------+ + + + + documented as of this encounter Visit Diagnoses Not on filedocumented in this encounter"
--- OUTSIDE RECORDS SUMMARY | ~2020-04-15 | XMS | Encounter Summary ---
Demographics + + + | Address | [address] | | | [place] [address] | + + + | Home Phone [...] Team Providers + +------+ + | Care Etl Database Developer Name | Role | Phone | + +------+ + PCP | Unavailable | + +------+ + Encounter Details +--------+ + + + + | Date | Type | Department | Care Team | Description | +--------+ + + + + | 09/24/ | [facility] | [facility] | Evan Gandara MD | | | 2005 | Encounter | MED CTR XRAY [address] | [address] [facility] | | | | | [place] | [place] | | | | | [place] [address] | [address] | | | | | [phone] | | | +--------+ + + + [...] W | | | | | | [place], | | | | | | [place] [address] | | | | | | [phone] | | | | | | | | +--------+ + + + + | 05/01/ | Procedure | Cardiology | | | | 2019 | visit | | | | +--------+ + + + + | 05/01/ | Office | Cardiology | [place], | | | 2019 | Visit | | [address] | | | | | | [place], | | | | | | [place] [address] | | | | | | [phone] | | | | | | | | +--------+ + + + + | 05/21/ | Implant | Cardiology | Daljit Singletary, | Remote Device | 2019 | Monitor | | MD [address] [place] [place] | Interrogation | | | | | [place], | (Primary Dx); | | | | | [place] [address] | Pacemaker; | | | | | [phone] | Sinoatrial node | | | | | | dysfunction (HCC) | | | | | | with symptomatic | | | | | | bradycardia | +--------+ + + + + documented as of this encounter Visit Diagnoses Not on filedocumented in this encounter"
--- OUTSIDE RECORDS SUMMARY | ~2020-04-15 | XMS | Encounter Summary ---
Demographics + + + | Address | [address] | | | [place] [address] | + + + | Home Phone [...] Providers + +------+ + | Care Electrical Project Manager Name | Role | Phone [...] [place] | | | | | [address] [place], [place] | [place] [address] | | | | | [address] | [phone] | | | | | [phone] | | | +--------+ + + + [...] | | | | | | [place] [address] | | | | | | [phone] | | | | | | | [...] | | | | | | [place] [address] | | | | | | [phone] | | | | | | | | +--------+ + + + + | 05/21/ | Implant | Cardiology | Daljit Singletary, | Remote Device | 2019 | Monitor | | [facility] | Interrogation | | | | | [place], | (Primary Dx); | | | | | [place] [address] | Pacemaker; | | | | | [phone] | Sinoatrial node | | | | | | dysfunction (HCC) | | | | | | with symptomatic | | | | | | bradycardia | +--------+ + + + + documented as of this encounter Visit Diagnoses Not on filedocumented in this encounter"
--- OUTSIDE RECORDS SUMMARY | ~2020-04-15 | XMS | Encounter Summary ---
Demographics + + + | Address | [address] | | | [place] [address] | + + + | Home Phone [...] + +------+ + | Care Manager Of Compensation Name | Role | Phone | + [...] 2015 | | CARDIOLOGY [address] | TECHNICAL SERVICES REP [address] | | | | | [place], | [place], [place] | | | | | [place] [address] | [address] | | | | | [phone] | | | +--------+--------+ + + + [...] W | | | | | | [place], | | | | | | [place] [address] | | | | | | [phone] | | | | | | | | +--------+ + + + + | 05/01/ | Procedure | Cardiology | | | | 2019 | visit | | | | +--------+ + + + + | 05/01/ | Office | Cardiology | [place], | | | 2019 | Visit | | [address] [place] W | | | | | | [place], | | | | | | [place] [address] | | | | | | [phone] | | | | | | | | +--------+ + + + + | 05/21/ | Implant | Cardiology | Daljit Singletary, | Remote Device | | 2019 | Monitor | | [facility] | Interrogation | | | | | [place], | (Primary Dx); | | | | | [place] [address] | Pacemaker; | | | | | [phone] | Sinoatrial node | | | | | | dysfunction (HCC) | | | | | | with symptomatic | | | | | | bradycardia | +--------+ + + + + documented as of this encounter Visit Diagnoses Not on filedocumented in this encounter"
--- OUTSIDE RECORDS SUMMARY | ~2020-04-15 | XMS | Encounter Summary ---
Demographics + + + | Address | [address] | | | [place] [address] | + + + | Home Phone [...] Providers + +------+ + | Care Brusher Tender Name | Role | Phone | [...] | 06/17/ | Telephone | [facility] [place] | [place], | Lab Order (due for | | 2015 | | CARDIOLOGY [address] | [place] [address] | fasting labs prior | | | | [place], | [place], | to appt) | | | | [place] [address] | [place] [address] | | | | | [phone] | [phone] | | | | | | | [...] W | | | | | | [place], | | | | | | [place] [address] | | | | | | [phone] | | | | | | | | +--------+ + + + + | 05/01/ | Procedure | Cardiology | | | | 2019 | visit | | | | +--------+ + + + + | 05/01/ | Office | Cardiology | [place], | | | 2019 | Visit | | PARISA [place] [address] | | | | | | [place], | | | | | | [place] [address] | | | | | | [phone] | | | | | | | | +--------+ + + + + | 05/21/ | Implant | Cardiology | Daljit Singletary, | Remote Device | 2019 | Monitor | | [address] | Interrogation | | | | | [facility], | (Primary Dx); | | | | | [place] [address] | Pacemaker; | | | | | [phone] | Sinoatrial node | | | | [...]
--- OUTSIDE RECORDS SUMMARY | ~2020-04-15 | XMS | Encounter Summary ---
Demographics + + + | Address | [id number] [place] [address] [address] | | | [place] [address] | + + + | Home Phone [...] [place] | | | | | [address] | | + + + + + Care Team Providers + +------+ + | Care Asphalt Spreader Operator Name | Role | Phone | [...] | | 2019 | | Center at [facility] | MD [address] | | | | | [address] | [place], [place] | | | | | Mailcode: [place] | [address] | | | | | [facility] and | [phone] | | | | | [place] [address] | | | | | | [place], [place] | | | | | | [address] | | | | | | [phone] | | | +--------+ + + + [...]
--- OUTSIDE RECORDS SUMMARY | ~2020-04-15 | XMS | Encounter Summary ---
Demographics + + + | Address | [address] | | | [place] [address] | + + + | Home Phone [...] Team Providers + +------+ + | Care Speech Language Therapist Name | Role | Phone | [...] | | | | CENTER [address] | [place] | (Primary Dx) | | 07/28/ | | [place] | [address] | | | 2017 | | [address] | | | | | | [phone] | | | +--------+ + + + [...] sent through Care Everywhere.Chest Pain, Non cardiac (Guatemalan)documented in this encounter Medications at Time of [...] + + + +---------+ + + | [place]-3 Fatty | CAPS, one capsule by | [...] | | | | | | [place] [address] | | | | | | [phone] | | | | | | | [...] | | | | | | [place] [address] | | | | | | [phone] | | | | | | | | +--------+ + + + + | 05/21/ | Implant | Cardiology | Daljit Singletary, | Remote Device | 2019 | Monitor | | [address] | Interrogation | | | | | [place], | (Primary Dx); | | | | | [place] [address] | Pacemaker; | | | | | [phone] | Sinoatrial node | | | | [...] W?MRN: | | | | | | [id number] | | | [id number] | | | his | | | [...] | | | ent/60 | | | [id number] | | | -5586- | | | [...] | | | St. | | | [place] | | | y | | | [...] | | | ext. | | | [id number] | | | or go | | [...] | | | M.D. | | | Air Vice Marshal | | | al | | | [...] + | [facility] | [address] | [place] | [phone] | | [facility] | | [address] | | | - LABORATORY | | [...] [facility] | | | CITIZ[place] | RATE,ESTIMATED | | MEDICAL | | | | mL/min/1.48v9Tntk than | | CENTER - | | [...] + | [facility] | [address] | [place] | [phone] | | [facility] | | [address] | | | - LABORATORY | | [...] | Eosinophils | | K/uL | . APLOONIA | | | | | | [...] + | [facility] | [address] | [place] | [phone] | | [facility] | | [address] | | | - LABORATORY | | [...] | | | | HIREN WINKLER, ANGELA ([id number]) | | | | | | on [...]
--- OUTSIDE RECORDS SUMMARY | ~2020-04-15 | XMS | Encounter Summary ---
Demographics + + + | Address | [address] [place] [address] [address] | | | [place] [address] | + + + | Home Phone [...] + | Rachel Valencia | EL[place]ER | [place] | | | | | [address] | | + + + + + Care Team Providers + +------+ + | Care Cafeteria Supervisor Name | Role | Phone | [...] | | | [address] | [place], [place] | | | | | Mailcode: [place] | [address] | | | | | for Health and | [phone] | | | | | [facility], [facility] | | | | | | [facility] [place] | | | | | | [address] | | | | | | [phone] | | | +--------+ + + + [...]
--- OUTSIDE RECORDS SUMMARY | ~2020-04-15 | XMS | Encounter Summary ---
Demographics + + + | Address | [address] | | | [place] [address] | + + + | Home Phone [...] Team Providers + +------+ + | Care Asset Management Coordinator Name | Role | Phone | + +------+ + PCP | Unavailable | + +------+ + Encounter Details +--------+ + + + + | Date | Type | Department | Care Team | Description | +--------+ + + + + | 08/02/ | Hospital | [facility] | | | | 2001 | Encounter | MED CTR EMERGENCY | | | | | | [place] [address] | | | | | | [place] | | | | | | [address] | | | | | | [phone] | | | +--------+ + + + [...] | | | | | | [place] [address] | | | | | | [phone] | | | | | | | | +--------+ + + + + | 05/01/ | Procedure | Cardiology | | | | 2019 | visit | | | | +--------+ + + + + | 05/01/ | Office | Cardiology | Silvia, | | | 2019 | Visit | | [address] [address] | | | | | | [place], | | | | | | [place] [address] | | | | | | [phone] | | | | | | | | +--------+ + + + + | 05/21/ | Implant | Cardiology | Daljit Singletary, | Remote Device | 2019 | Monitor | | [address] | Interrogation | | | | | [place], | (Primary Dx); | | | | | [place] [address] | Pacemaker; | | | | | [phone] | Sinoatrial node | | | | | | dysfunction (HCC) | | | | | | with symptomatic | | | | | | bradycardia | +--------+ + + + + documented as of this encounter Visit Diagnoses Not on filedocumented in this encounter"
--- OUTSIDE RECORDS SUMMARY | ~2020-04-15 | XMS | Encounter Summary ---
Demographics + + + | Address | [address] | | | [place] [address] | + + + | Home Phone [...] Team Providers + +------+ + | Care Cat Sitter Name | Role | Phone | + [...] | CARDIOLOGY [address] | [address] [place] | Interrogation | | | | [place], | [place], | (Primary Dx); | | | | [place] [address] | [place] [address] | Presence of | | | | [phone] | [phone] | permanent cardiac | | | | [...] | | | | | | [place] [address] | | | | | | [phone] | | | | | | | [...] | | | | | | [place] [address] | | | | | | [phone] | | | | | | | | +--------+ + + + + | 05/21/ | Implant | Cardiology | Daljit Singletary, | Remote Device | | 2019 | Monitor | | [address] [place] [place] | Interrogation | | | | | [place], | (Primary Dx); | | | | | [place] [address] | Pacemaker; | | | | | [phone] | Sinoatrial node | | | | [...]
--- OUTSIDE RECORDS SUMMARY | ~2020-04-15 | XMS | Encounter Summary ---
Demographics + + + | Address | [address] | | | [place] [address] | + + + | Home Phone [...] Providers + +------+ + | Care Transportation Modeler Name | Role | Phone | + +------+ + | Kirk French MD | PCP | | + +------+ + Encounter Details +--------+ + + + + | Date | Type | Department | Care Team | Description | +--------+ + + + + | 04/07/ | Hospital | [facility] | Pia Akhtar | Spinal stenosis of | | 2016 | Encounter | MED CTR XRAY [address] | MD [address] | lumbar region | | | | [place] | [address] | | | | | [place] [address] | [place] [address] | | | | | [phone] | [phone] | | | | | | | [...] | | | | | | [place] [address] | | | | | | [phone] | | | | | | | | +--------+ + + + + | 05/01/ | Procedure | Cardiology | | | | 2019 | visit | | | | +--------+ + + + + | 05/01/ | Office | Cardiology | [place] | | | 2019 | Visit | | Janeen, VASCULAR NEUROLOGIST [address] | | | | | | [place], | | | | | | [place] [address] | | | | | | [phone] | | | | | | | | +--------+ + + + + | 05/21/ | Implant | Cardiology | Daljit Singletary, | Remote Device | | 2020 | Monitor | | [address] [place] | Interrogation | | | | | [place], | (Primary Dx); | | | | | [place] [address] | Pacemaker; | | | | | [phone] | Sinoatrial node | | | | [...]
--- OUTSIDE RECORDS SUMMARY | ~2020-04-15 | XMS | Encounter Summary ---
Demographics + + + | Address | [address] | | | [place] [address] | + + + | Home Phone [...] Providers + +------+ + | Care Machine Assembler Name | Role | Phone | [...] 2019 | | GASTROENTEROLOGY | [address], [place] | | | | | [address] [place] | [address] [place], [place] | | | | | [address] [place], [place] | [address] | | | | | [address] | | | | | | [phone] | | | +--------+ + + + [...] | | | | | | [place] [address] | | | | | | [phone] | | | | | | | | +--------+ + + + + | 05/01/ | Procedure | Cardiology | | | | 2019 | visit | | | | +--------+ + + + + | 05/01/ | Office | Cardiology | [place], | | | 2019 | Visit | | [place] [address] | | | | | | [place], | | | | | | [place] [address] | | | | | | [phone] | | | | | | | | +--------+ + + + + | 05/21/ | Implant | Cardiology | Daljit Singletary, | Remote Device | 2019 | Monitor | | MD [address] | Interrogation | | | | | [place], | (Primary Dx); | | | | | [place] [address] | Pacemaker; | | | | | [phone] | Sinoatrial node | | | | | | dysfunction (HCC) | | | | | | with symptomatic | | | | | | bradycardia | +--------+ + + + + documented as of this encounter Visit Diagnoses Not on filedocumented in this encounter"
--- OUTSIDE RECORDS SUMMARY | ~2020-04-15 | XMS | Encounter Summary ---
Demographics + + + | Address | [address] | | | [place] [address] | + + + | Home Phone [...] Team Providers + +------+ + | Care Longwall Headgate Operator Name | Role | Phone | + +------+ + | Kirk French MD | PCP | | + +------+ + Encounter Details +--------+ + + + + | Date | Type | Department | Care Team | Description | +--------+ + + + + | 01/25/ | Hospital | [facility] | Daljit Singletary, | Stable angina | | 2019 | Encounter | MED CTR CV INTRA OP | MD [address] | pectoris (HCC) | | | | [address] | [address] [place], | | | | | [place] | [place] [address] | | | | | [address] | [phone] | | | | | [phone] | | | +--------+ + + + [...] as a collagen plugis used on the mcintire triny site to close the site, you [...] by your healthcare provider Date Last Reviewed: 09/22/201619998188-2031 [employer]. [address] [place] [address]. All righ ts reserved. This information is [...] + + + +---------+ + + | [place]-3 Fatty | CAPS, one capsule by | [...] W | | | | | | [place], | | | | | | [place] [address] | | | | | | [phone] | | | | | | | | +--------+ + + + + | 05/01/ | Procedure | Cardiology | | | | 2019 | visit | | | | +--------+ + + + + | 05/01/ | Office | Cardiology | Silvia, | | | 2019 | Visit | | PARISA Vernon [address] | | | | | | [place], | | | | | | [place] [address] | | | | | | [phone] | | | | | | | | +--------+ + + + + | 05/21/ | Implant | Cardiology | Daljit Singletary, | Remote Device | | 2019 | Monitor | | MD [address] | Interrogation | | | | | [place], | (Primary Dx); | | | | | [place] [address] | Pacemaker; | | | | | [phone] | Sinoatrial node | | | | [...] (1960) MEDICAL RECORD NUMBER: | | | [id number] OF PROCEDURE: 01/25/2019 EXPORT COORDINATOR: Daljit | | | MD Gemini PROCEDURES [...] Sanchez, (1960) | | OF PROCEDURE: 01/25/2019PRIMARY DOOR LINER: Daljit Singletary MD PROCEDURES | | PERFORMED:Coronary [...] | Aggressive medical management. | | at 9[facility] PROVIDER:Kirk French MDFor additional [...]
--- OUTSIDE RECORDS SUMMARY | ~2020-04-15 | XMS | Encounter Summary ---
Demographics + + + | Address | [address] | | | [place] [address] | + + + | Home Phone [...] + +------+ + | Care Reinforcing Steel Worker Name | Role | Phone | [...] [address] | | | | | [place], | [place], | | | | | [place] [address] | [place] [address] | | | | | [phone] | [phone] | | | | | | | [...] W | | | | | | [place], | | | | | | [place] [address] | | | | | | [phone] | | | | | | | | +--------+ + + + + | 05/01/ | Procedure | Cardiology | | | | 2019 | visit | | | | +--------+ + + + + | 05/01/ | Office | Cardiology | Silvia, | | | 2019 | Visit | | PARISA [place] [address] | | | | | | [place], | | | | | | [place] [address] | | | | | | [phone] | | | | | | | | +--------+ + + + + | 05/21/ | Implant | Cardiology | Daljit Singletary, | Remote Device | | 2019 | Monitor | | [facility] | Interrogation | | | | | [address] [place], | (Primary Dx); | | | | | [place] [address] | Pacemaker; | | | | | [phone] | Sinoatrial node | | | | | | dysfunction (HCC) | | | | | | with symptomatic | | | | | | bradycardia | +--------+ + + + + documented as of this encounter Visit Diagnoses Not on filedocumented in this encounter"
--- OUTSIDE RECORDS SUMMARY | ~2020-04-15 | XMS | Encounter Summary ---
Demographics + + + | Address | [address] | | | [place] [address] | + + + | Home Phone [...] Providers + +------+ + | Care Hair Worker Name | Role | Phone | + +------+ + | Michael Amanda DO | PCP | | + +------+ + Encounter Details +--------+ + + + + | Date | Type | Department | Care Team | Description | +--------+ + + + + | 05/11/ | Hospital | [facility] | Conversion | Lumbago; | | 2013 | Encounter | [facility] | Transaction, | Postlaminectomy | | | | [address] | Provider Unknown | syndrome, cervical | | | | [place], [place] | | region; Cervicalgia | | | | [address] | (Fax) | | | | | [phone] | | | +--------+ + + + [...] + + + +---------+ + + | Thayer-3 Fatty | CAPS, one capsule by | [...] 1147 Date of Service: 05/11/141145 Status: Signed Chemist Pharmaceutical: Christine Mcgraw Report called to Brittany morejon [...] W | | | | | | [place], | | | | | | [place] [address] | | | | | | [phone] | | | | | | | | +--------+ + + + + | 05/01/ | Procedure | Cardiology | | | | 2019 | visit | | | | +--------+ + + + + | 05/01/ | Office | Cardiology | Silvia, | | | 2019 | Visit | | PARISA Vernon W | | | | | | [place], | | | | | | [place] [address] | | | | | | [phone] | | | | | | | | +--------+ + + + + | 05/21/ | Implant | Cardiology | Daljit Singletary, | Remote Device | 2019 | Monitor | | MD Sim [place] | Interrogation | | | | | [place], | (Primary Dx); | | | | | [place] [address] | Pacemaker; | | | | | [phone] | Sinoatrial node | | | | [...]
--- OUTSIDE RECORDS SUMMARY | ~2020-04-15 | XMS | Encounter Summary ---
Demographics + + + | Address | [address] | | | [place] [address] | + + + | Home Phone [...] Providers + +------+ + | Care Roofing Tile Sorter Name | Role | Phone | [...] + + | 05/26/ | Emergency | JACKKYNanette GUTIERREZ MICHELLE | Lizbeth Green | Atypical chest pain | | 2013 | | [facility] | DO Nicole Fink | (Primary Dx); | | | | CENTER [address] | [address] [place], [place] | Anxiety | | | | [place], [place] | [address] | | | | | [address] | | | | | | [phone] | | | +--------+ + + + [...] + + + +---------+ + + | Forney-3 Fatty | CAPS, one capsule by | [...] W | | | | | | [place], | | | | | | [place] [address] | | | | | | [phone] | | | | | | | | +--------+ + + + + | 05/01/ | Procedure | Cardiology | | | | 2019 | visit | | | | +--------+ + + + + | 05/01/ | Office | Cardiology | Silvia, | | | 2019 | Visit | | PARISA Vernon W | | | | | | [place], | | | | | | [place] [address] | | | | | | [phone] | | | | | | | | +--------+ + + + + | 05/21/ | Implant | Cardiology | Daljit Singletary, | Remote Device | 2019 | Monitor | | MD Sim [place] | Interrogation | | | | | [place], | (Primary Dx); | | | | | [place] [address] | Pacemaker; | | | | | [phone] | Sinoatrial node | | | | [...] the uneventful IV administration of 80 mL [id number] contrast. Timing of | | contrast bolus [...] + | MISCELLANEOUS LAB | | | [phone] | + +---------+ + + | MISCELANIOUS LAB | | | [phone] | + +---------+ + + Troponin I [...] | | | | | | [employer] | | | | | [...] + | [facility] | [address] | [place] | [phone] | | [facility] | | [address] | | | - LABORATORY | | | | + + + + + | [facility] | [address] | [place] | | | [facility] | | [address] | | | - LABORATORY [...] mL/min/1.73m2 | [facility] | | | BERMUDIAN | RATE,ESTIMATED | | MEDICAL | | | | mL/min/1.83y3Rcjl than | | CENTER - | | [...] [address] | [place] | [phone] | | [facility] | | [address] | | | - LABORATORY | | | | + + + + + | [facility] | [address] | [place] | | | [facility] | | [address] | | | - LABORATORY [...] + | [facility] | [address] | [place] | [phone] | | [facility] | | [address] | | | - LABORATORY | | | | + + + + + | [facility] | [address] | [place], [place] | | | [facility] | | [address] | | | - LABORATORY | [...]
--- OUTSIDE RECORDS SUMMARY | ~2020-04-15 | XMS | Encounter Summary ---
Demographics + + + | Address | [address] | | | [place] [address] | + + + | Home Phone [...] Providers + +------+ + | Care Structural Iron Worker Name | Role | Phone | + +------+ + PCP | Unavailable | + +------+ + Encounter Details +--------+ + + + + | Date | Type | Department | Care Team | Description | +--------+ + + + + | 06/03/ | Hospital | [facility] | | | | 2008 | Encounter | [facility] | | | | | | [place] [address] | | | | | | [place] | | | | | | [address] | | | | | | [phone] | | | +--------+ + + + [...] | | | | | | [place] [address] | | | | | | [phone] | | | | | | | | +--------+ + + + + | 05/01/ | Procedure | Cardiology | | | | 2019 | visit | | | | +--------+ + + + + | 05/01/ | Office | Cardiology | Silvia, | | | 2019 | Visit | | [address] | | | | | | [place], | | | | | | [place] [address] | | | | | | [phone] | | | | | | | | +--------+ + + + + | 05/21/ | Implant | Cardiology | Daljit Singletary, | Remote Device | 2019 | Monitor | | [address] | Interrogation | | | | | [place], | (Primary Dx); | | | | | [place] [address] | Pacemaker; | | | | | [phone] | Sinoatrial node | | | | | | dysfunction (HCC) | | | | | | with symptomatic | | | | | | bradycardia | +--------+ + + + + documented as of this encounter Visit Diagnoses Not on filedocumented in this encounter"
--- OUTSIDE RECORDS SUMMARY | ~2020-04-15 | XMS | Encounter Summary ---
Demographics + + + | Address | [address] | | | [place] [address] | + + + | Home Phone [...] Providers + +------+ + | Care Resident Care Technician Name | Role | Phone | [...] | RN | | | | | [place], | | | | | | [place] [address] | | | | | | [phone] | | | +--------+ + + + [...] | | | | | | [place] [address] | | | | | | [phone] | | | | | | | [...] | | | | | | [place] [address] | | | | | | [phone] | | | | | | | | +--------+ + + + + | 05/21/ | Implant | Cardiology | Daljit Singletary, | Remote Device | | 2019 | Monitor | | MD Sim [place] | Interrogation | | | | | [place], | (Primary Dx); | | | | | [place] [address] | Pacemaker; | | | | | [phone] | Sinoatrial node | | | | | | dysfunction (HCC) | | | | | | with symptomatic | | | | | | bradycardia | +--------+ + + + + documented as of this encounter Visit Diagnoses Not on filedocumented in this encounter"
--- OUTSIDE RECORDS SUMMARY | ~2020-04-15 | XMS | Encounter Summary ---
Demographics + + + | Address | [address] | | | [place] [address] | + + + | Home Phone [...] Providers + +------+ + | Care Stone Setter Name | Role | Phone | [...] 2014 | | CARDIOLOGY [address] | DIRECTOR INFORMATION [address] [place] | | | | | [place], | [place], [place] | | | | | [place] [address] | [address] | | | | | [phone] | | | +--------+ + + + [...] W | | | | | | [place], | | | | | | [place] [address] | | | | | | [phone] | | | | | | | | +--------+ + + + + | 05/01/ | Procedure | Cardiology | | | | 2019 | visit | | | | +--------+ + + + + | 05/01/ | Office | Cardiology | Silvia, | | | 2019 | Visit | | PARISA [address] W | | | | | | [place], | | | | | | [place] [address] | | | | | | [phone] | | | | | | | | +--------+ + + + + | 05/21/ | Implant | Cardiology | Daljit Singletary, | Remote Device | | 2019 | Monitor | | [address] [facility] | Interrogation | | | | | [place], | (Primary Dx); | | | | | [place] [address] | Pacemaker; | | | | | [phone] | Sinoatrial node | | | | | | dysfunction (HCC) | | | | | | with symptomatic | | | | | | bradycardia | +--------+ + + + + documented as of this encounter Visit Diagnoses Not on filedocumented in this encounter"
--- OUTSIDE RECORDS SUMMARY | ~2020-04-15 | XMS | Encounter Summary ---
Demographics + + + | Address | [address] | | | [place] [address] | + + + | Home Phone [...] Team Providers + +------+ + | Care Plan Coordinator Name | Role | Phone | [...] Provider Unknown | | | | | [place], [place] | [phone] | | | | | [address] | | | | | | [phone] | | | +--------+ + + + [...] + + + +---------+ + + | [place]-3 Fatty | CAPS, one capsule by | [...] | | | | | | | #[id number], exp 07/2016 | | | | | [...] | | | | | | [place] [address] | | | | | | [phone] | | | | | | | | +--------+ + + + + | 05/01/ | Procedure | Cardiology | | | | 2019 | visit | | | | +--------+ + + + + | 05/01/ | Office | Cardiology | Silvia, | | | 2019 | Visit | | PARISA Vernon [address] | | | | | | [place], | | | | | | [place] [address] | | | | | [phone] | | | | | | | | +--------+ + + + + | 05/21/ | Implant | Cardiology | Daljit Singletary, | Remote Device | | 2020 | Monitor | | [address] [place] | Interrogation | | | | | [place], | (Primary Dx); | | | | | [place] [address] | Pacemaker; | | | | | [phone] | Sinoatrial node | | | | [...]
--- OUTSIDE RECORDS SUMMARY | ~2020-04-15 | XMS | Encounter Summary ---
Demographics + + + | Address | [address] | | | [place] [address] | + + + | Home Phone [...] Providers + +------+ + | Care Hide Curer Name | Role | Phone | [...] | | | | stenosis | L, MOTOR TRANSPORT INSPECTOR [address] | | | | | | Procedures | [address] | | | | | | CT | [address] | | | | | | Myelography | [place], [place] | | | | | | Cervical | [address] | | | | | | Spine | Phone: | | | | | | | [phone] | | | | | | | Fax: | | | | | | | [phone] | | +--------+--------+ + + + + [...] | 06/04/ | Hospital | [facility] | [place], | Cervical spinal | | 2016 | Encounter | [facility] [address] | [place] Mason MOTOR TRANSPORT INSPECTOR [address] | stenosis | | | | [place], | [address] | | | | | [place] [address] | [place] [address] | | | | | [phone] | | | | | | | [...] | | | | | | [place] [address] | | | | | | [phone] | | | | | | | [...] | | | | | | [place] [address] | | | | | | [phone] | | | | | | | | +--------+ + + + + | 05/21/ | Implant | Cardiology | Daljit Singletary, | Remote Device | | 2019 | Monitor | | [address] [place] | Interrogation | | | | | [place], | (Primary Dx); | | | | | [place] [address] | Pacemaker; | | | | | [phone] | Sinoatrial node | | | | [...]
--- OUTSIDE RECORDS SUMMARY | ~2020-04-15 | XMS | Encounter Summary ---
Demographics + + + | Address | [address] | | | [place] [address] | + + + | Home Phone [...] + +------+ + | Care Crown Ironer Name | Role | Phone | [...] + + | 03/22/ | Refill | [facility] | Kirk French | Medication Refill | | 2019 | | [facility] | MD Bre[address] | | | | | [facility] [address] | [address] | | | | | [address] | [place] [address] | | | | | [place], [place] | [phone] | | | | | [address] | | | | | | [phone] | | | +--------+--------+ + + + [...] | | | | | | [place] [address] | | | | | | [phone] | | | | | | | | +--------+ + + + + | 05/01/ | Procedure | Cardiology | | | | 2019 | visit | | | | +--------+ + + + + | 05/01/ | Office | Cardiology | Silvia, | | | 2019 | Visit | | PARISA [address] | | | | | | [place], | | | | | | [place] [address] | | | | | | [phone] | | | | | | | | +--------+ + + + + | 05/21/ | Implant | Cardiology | Daljit Singletary, | Remote Device | | 2019 | Monitor | | [address] [facility] | Interrogation | | | | | [place], | (Primary Dx); | | | | | [place] [address] | Pacemaker; | | | | | [phone] | Sinoatrial node | | | | | | dysfunction (HCC) | | | | | | with symptomatic | | | | | | bradycardia | +--------+ + + + + documented as of this encounter Visit Diagnoses Not on filedocumented in this encounter"
--- OUTSIDE RECORDS SUMMARY | ~2020-04-15 | XMS | Encounter Summary ---
Demographics + + + | Address | [address] | | | [place] [address] | + + + | Home Phone [...] Team Providers + +------+ + | Care Windmill Mechanic Name | Role | Phone | [...] | 03/02/ | Telephone | [facility] [place] | Daljit Singletary, | Other | | 2013 | | CARDIOLOGY [address] | MD [address] [place] | | | | | [place], | [place], | | | | | [place] [address] | [place] [address] | | | | | [phone] | [phone] | | | | | | | [...] | | | | | | [place] [address] | | | | | | [phone] | | | | | | | [...] | | | | | | [place] [address] | | | | | | [phone] | | | | | | | | +--------+ + + + + | 05/21/ | Implant | Cardiology | Daljit Singletary, | Remote Device | 2019 | Monitor | | MD [address] [place] | Interrogation | | | | | [place], | (Primary Dx); | | | | | [place] [address] | Pacemaker; | | | | | [phone] | Sinoatrial node | | | | | | dysfunction (HCC) | | | | | | with symptomatic | | | | | | bradycardia | +--------+ + + + + documented as of this encounter Visit Diagnoses Not on filedocumented in this encounter"
--- OUTSIDE RECORDS SUMMARY | ~2020-04-15 | XMS | Encounter Summary ---
Demographics + + + | Address | [address] [place] [address] [address] | | | [place] [address] | + + + | Home Phone [...] [place] | | | | | [address] | | + + + + + Care Team Providers + +------+ + | Care Flight Physician Name | Role | Phone | [...] | | | | l weight | [place], [place] | | | | | | loss | [address] | | | | | | Procedures | Phone: | | | | | | CONSULT TO | [phone] | | | | | | NON - [facility] | Fax: | | | | | | PROVIDER | [phone] | | | | | | CONSULT [...] 2019 | | Center at [facility] [address] | MD [address] | change location of | | | | [address] | [place], [place] | referral ) | | | | Mailcode: Center | [address] | | | | | for Health and | [phone] | | | | | [facility] 2 | | | | | | [place], [place] | | | | | | [address] | | | | | | [phone] | | | +--------+ + + + [...]
--- OUTSIDE RECORDS SUMMARY | ~2020-04-15 | XMS | Encounter Summary ---
Demographics + + + | Address | [address] [place] [address] [address] | | | [place] [address] | + + + | Home Phone [...] [place] | | | | | [address] | | + + + + + Care Team Providers + +------+ + | Care Staple Shear Operator Name | Role | Phone | [...] | | [address] | [facility] [place] | ED) | | | | Mailcode: Center | [address] | | | | | for Health and | [phone] | | | | | [facility] 2 | | | | | | [place], [place] | | | | | | [address] | | | | | | [phone] | | | +--------+ + + + [...]
--- OUTSIDE RECORDS SUMMARY | ~2020-04-15 | XMS | Encounter Summary ---
Demographics + + + | Address | [address] | | | [place] [address] | + + + | Home Phone [...] Providers + +------+ + | Care Casino Floorperson Name | Role | Phone [...] Eva R[place]SE | | | | | [place], [place] | [address] | | | | | [address] | [place] [address] | | | | | [phone] | [phone] | | | | | | | [...] W | | | | | | [place], | | | | | | [place] [address] | | | | | | [phone] | | | | | | | | +--------+ + + + + | 05/01/ | Procedure | Cardiology | | | | 2019 | visit | | | | +--------+ + + + + | 05/01/ | Office | Cardiology | Silvia, | | | 2019 | Visit | | PARISA Vernon [address] | | | | | | [place], | | | | | | [place] [address] | | | | | | [phone] | | | | | | | | +--------+ + + + + | 05/21/ | Implant | Cardiology | Daljit Singletary, | Remote Device | | 2019 | Monitor | | MD [address] [facility] | Interrogation | | | | | [place], | (Primary Dx); | | | | | [place] [address] | Pacemaker; | | | | | [phone] | Sinoatrial node | | | | [...]
--- OUTSIDE RECORDS SUMMARY | ~2020-04-15 | XMS | Encounter Summary ---
Demographics + + + | Address | [address] | | | [place] [address] | + + + | Home Phone [...] Providers + +------+ + | Care Plant Mechanic Name | Role | Phone | + +------+ + | Kirk French MD | PCP | | + +------+ + Encounter Details +--------+ + + + + | Date | Type | Department | Care Team | Description | +--------+ + + + + | 01/05/ | Orders Only | [facility] | Emmanuel Daniel MD | | | 2019 | | [facility] | [address] [place] | | | | | PATHOLOGY [address] | [address] [place], [place] | | | | | [address]VD [place], [place] | [address] | | | | | [address] | | | | | | [phone] | | | +--------+ + + + [...] | | | | | | [place] [address] | | | | | | [phone] | | | | | | | | +--------+ + + + + | 05/01/ | Procedure | Cardiology | | | | 2019 | visit | | | | +--------+ + + + + | 05/01/ | Office | Cardiology | Silvia, | | | 2019 | Visit | | PARISA [address] | | | | | | [place], | | | | | | [place] [address] | | | | | | [phone] | | | | | | | | +--------+ + + + + | 05/21/ | Implant | Cardiology | Daljit iSngletary, | Remote Device | | 2019 | Monitor | | [address] [facility] | Interrogation | | | | | [place], | (Primary Dx); | | | | | [place] [address] | Pacemaker; | | | | | [phone] | Sinoatrial node | | | | [...] | | | (atherosclerotic heart disease of [place] coronary artery without | | | angina [...] chronic or | | | microscopic colitis. BES:[facility]:C3NR GROSS DESCRIPTION: A. The | | | specimen, labeled "[place], duodenal biopsy" is received in formalin | | | and consists of seven 0.1-0.5 cm lin fragments. Entirely submitted in | | | (A1). B. The specimen, labeled "[place], right colon" is received | | | in formalin and consists of six 0.2-0.3 cm lin fragments. Entirely | | | submitted in (B1). C. The specimen, labeled "[place], left colon" | | | is received in formalin and consists of six 0.2-0.3 cm lin-pink | | | fragments. Entirely submitted in (C1). am:AMB:rds PERFORMING | | | LABORATORY: The technical component was performed by [employer] | | | [facility], [address] [place] [address] (Outreach Nurse: | | | Kailey Stafford MD; CLIA# [id number]). Professional interpretation was | | | performed by [employer], [facility], [facility] | | | [place] [address] (Outreach Nurse: Ishaan | | | Anthony Dao; CLIA#: [id number]). Diagnostician: Ishaan Bay MD Pathologist Electronically Signed [...]
--- OUTSIDE RECORDS SUMMARY | ~2020-04-15 | XMS | Encounter Summary ---
Demographics + + + | Address | [address] | | | [place] [address] | + + + | Home Phone [...] Team Providers + +------+ + | Care Screw Machine Operator Name | Role | Phone [...] Refill | | 2013 | | [facility] | DO [address] | | | | | [address] | [place] | | | | | [place] | [address] | | | | | [address] | | | | | | [phone] | | | +--------+--------+ + + + [...] W | | | | | | [place], | | | | | | [place] [address] | | | | | | [phone] | | | | | | | | +--------+ + + + + | 05/01/ | Procedure | Cardiology | | | | 2019 | visit | | | | +--------+ + + + + | 05/01/ | Office | Cardiology | Silvia, | | | 2019 | Visit | | [address] | | | | | | [place], | | | | | | [place] [address] | | | | | | [phone] | | | | | | | | +--------+ + + + + | 05/21/ | Implant | Cardiology | Daljit Singletary, | Remote Device | | 2019 | Monitor | | [address] [facility] | Interrogation | | | | | [address] [place], | (Primary Dx); | | | | | [place] [address] | Pacemaker; | | | | | [phone] | Sinoatrial node | | | | | | dysfunction (HCC) | | | | | | with symptomatic | | | | | | bradycardia | +--------+ + + + + documented as of this encounter Visit Diagnoses Not on filedocumented in this encounter"
--- OUTSIDE RECORDS SUMMARY | ~2020-04-15 | XMS | Encounter Summary ---
Demographics + + + | Address | [address] | | | [place] [address] | + + + | Home Phone [...] Team Providers + +------+ + | Care Cardiology Consultants Name | Role | Phone | + +------+ + PCP | Unavailable | + +------+ + Encounter Details +--------+ + + + + | Date | Type | Department | Care Team | Description | +--------+ + + + + | 10/19/ | Hospital | [facility] | | | | 1992 | Encounter | MED CTR EMERGENCY | | | | | | CENTER [address] | | | | | | [place] | | | | | | [address] | | | | | | [phone] | | | +--------+ + + + [...] | | | | | | [place] [address] | | | | | | [phone] | | | | | | | | +--------+ + + + + | 05/01/ | Procedure | Cardiology | | | | 2019 | visit | | | | +--------+ + + + + | 05/01/ | Office | Cardiology | Silvia, | | | 2019 | Visit | | [address] | | | | | | [place], | | | | | | [place] [address] | | | | | | [phone] | | | | | | | | +--------+ + + + + | 05/21/ | Implant | Cardiology | Daljit Singletary, | Remote Device | 2019 | Monitor | | [address] [place] | Interrogation | | | | | [place], | (Primary Dx); | | | | | [place] [address] | Pacemaker; | | | | | [phone] | Sinoatrial node | | | | | | dysfunction (HCC) | | | | | | with symptomatic | | | | | | bradycardia | +--------+ + + + + documented as of this encounter Visit Diagnoses Not on filedocumented in this encounter"
--- OUTSIDE RECORDS SUMMARY | ~2020-04-15 | XMS | Encounter Summary ---
Demographics + + + | Address | [address] | | | [place] [address] | + + + | Home Phone [...] Providers + +------+ + | Care Medical Assembly Name | Role | Phone | + [...] | Telephone | [facility] [place] | [place], | Other (not feeling | | 2013 | | [place] [address] | [address] | [place]) | | | | [place], | [place], | | | | | [place] [address] | [place] [address] | | | | | [phone] | [phone] | | | | | | | [...] W | | | | | | [place], | | | | | | [place] [address] | | | | | | [phone] | | | | | | | | +--------+ + + + + | 05/01/ | Procedure | Cardiology | | | | 2019 | visit | | | | +--------+ + + + + | 05/01/ | Office | Cardiology | Sil[place], | | | 2019 | Visit | | [address] | | | | | | [place], | | | | | | [place] [address] | | | | | | [phone] | | | | | | | | +--------+ + + + + | 05/21/ | Implant | Cardiology | Daljit Singletary, | Remote Device | | 2019 | Monitor | | [facility] | Interrogation | | | | | [address], | (Primary Dx); | | | | | [place] [address] | Pacemaker; | | | | | [phone] | Sinoatrial node | | | | | | dysfunction (HCC) | | | | | | with symptomatic | | | | | | bradycardia | +--------+ + + + + documented as of this encounter Visit Diagnoses Not on filedocumented in this encounter"
--- OUTSIDE RECORDS SUMMARY | ~2020-04-15 | XMS | Encounter Summary ---
Demographics + + + | Address | [address] | | | [place] [address] | + + + | Home Phone [...] Providers + +------+ + | Care Regional Commercial Sales Manager Name | Role | Phone [...] + | 10/04/ | Telephone | [facility] | Daljit Singletary, | Other (Records sent) | | 2012 | | CARDIOLOGY [address] | MD [address] [place] | | | | | [place], | [place], | | | | | [place] [address] | [place] [address] | | | | | [phone] | [phone] | | | | | | | [...] W | | | | | | [place], | | | | | | [place] [address] | | | | | | [phone] | | | | | | | | +--------+ + + + + | 05/01/ | Procedure | Cardiology | | | | 2019 | visit | | | | +--------+ + + + + | 05/01/ | Office | Cardiology | Silvia, | | | 2019 | Visit | | [address] | | | | | | [place], | | | | | | [place] [address] | | | | | | [phone] | | | | | | | | +--------+ + + + + | 05/21/ | Implant | Cardiology | Daljit Singletary, | Remote Device | | 2019 | Monitor | | [address] | Interrogation | | | | | [place], | (Primary Dx); | | | | | [place] [address] | Pacemaker; | | | | | [phone] | Sinoatrial node | | | | | | dysfunction (HCC) | | | | | | with symptomatic | | | | | | bradycardia | +--------+ + + + + documented as of this encounter Visit Diagnoses Not on filedocumented in this encounter"
--- OUTSIDE RECORDS SUMMARY | ~2020-04-15 | XMS | Encounter Summary ---
Demographics + + + | Address | [address] | | | [place] [address] | + + + | Home Phone [...] Providers + +------+ + | [employer] Super[employer] Name | Role | Phone [...] Refill | | 2013 | | MEDICINE [facility]ANN[facility] | DO [address] | | | | | [address] | [place] | | | | | [place] | [address] | | | | | [address] | | | | | | [phone] | | | +--------+--------+ + + + [...] | | | | | | [place] [address] | | | | | | [phone] | | | | | | | [...] | | | | | | [place] [address] | | | | | | [phone] | | | | | | | | +--------+ + + + + | 05/21/ | Implant | Cardiology | Daljit Singletary, | Remote Device | | 2019 | Monitor | | [facility] | Interrogation | | | | | [facility], | (Primary Dx); | | | | | [place] [address] | Pacemaker; | | | | | [phone] | Sinoatrial node | | | | | | dysfunction (HCC) | | | | | | with symptomatic | | | | | | bradycardia | +--------+ + + + + documented as of this encounter Visit Diagnoses Not on filedocumented in this encounter"
--- OUTSIDE RECORDS SUMMARY | ~2020-04-15 | XMS | Encounter Summary ---
Demographics + + + | Address | [address] | | | [place] [address] | + + + | Home Phone [...] | CARDIOLOGY [address] | MD [address] [place] | | | | | [place], | [place], | | | | | [place] [address] | [place] [address] | | | | | [phone] | [phone] | | | | | | | [...] | | | | | | [place] [address] | | | | | | [phone] | | | | | | | [...] [place], | | | | | | [place] [address] | | | | | | [phone] | | | | | | | | +--------+ + + + + | 05/21/ | Implant | Cardiology | Daljit Singletary, | Remote Device | | 2019 | Monitor | | [facility] | Interrogation | | | | | [place], | (Primary Dx); | | | | | [place] [address] | Pacemaker; | | | | | [phone] | Sinoatrial node | | | | | | dysfunction (HCC) | | | | | | with symptomatic | | | | | | bradycardia | +--------+ + + + + documented as of this encounter Visit Diagnoses Not on filedocumented in this encounter"
--- OUTSIDE RECORDS SUMMARY | ~2020-04-15 | XMS | Encounter Summary ---
Demographics + + + | Address | [address] | | | [place] [address] | + + + | Home Phone [...] Providers + +------+ + | Care Administrative Associate Name | Role | Phone | [...] + + | 08/17/ | Office | [facility] | Michael Amanda, | Testosterone | | 2012 | Visit | [facility] [place] | DO [address] | deficiency (Primary | | | | [address] | [place] | Dx); Hypoglycemia; | | | | [place] | [address] | Herpes | | | | [address] | | | | | | [phone] | | | +--------+---------+ + + + [...] lowering his testosterone levels. He seen at [facility]. He was prescribed OxyContin and Dilaudid. The [...] erectile dy sfunction. He was seen at [facility] yesterday and they prescribed him testostero ne cypionate injections. He's not sure when they wanted him to come back for labs. He has a followup appointment with [facility] in one month. Patient complains of history [...] HTN (hypertension); Hypercholesterolemia; Bipolar 1 disorder; Insomnia; Dock Pumper jennifer neck pain; Depression; Hyperlipidemia; BIPOLAR DISORDER [...] per orders. This note is dictated using Snabboteket voice recognition software. This note was dictated [...] [place], | | | | | | [place] [address] | | | | | | [phone] | | | | | | | [...] | | | | | | [place] [address] | | | | | | [phone] | | | | | | | | +--------+ + + + + | 05/21/ | Implant | Cardiology | Daljit Singletary, | Remote Device | | 2020 | Monitor | | [facility] | Interrogation | | | | | [place], | (Primary Dx); | | | | | [place] [address] | Pacemaker; | | | | | [phone] | Sinoatrial node | | | | [...]
--- OUTSIDE RECORDS SUMMARY | ~2020-04-15 | XMS | Encounter Summary ---
Demographics + + + | Address | [address] | | | [place] [address] | + + + | Home Phone [...] Providers + +------+ + | Care Toy Trains And Accessories Salesperson Name | Role | Phone | [...] | | CARDIOLOGY [address] | Janeen, CUSTOMER AGENT [address] | reading) | | | | [place], | [place], | | | | | [place] [address] | [place] [address] | | | | | [phone] | [phone] | | | | | | | [...] W | | | | | | [place], | | | | | | [place] [address] | | | | | | [phone] | | | | | | | | +--------+ + + + + | 05/01/ | Procedure | Cardiology | | | | 2019 | visit | | | | +--------+ + + + + | 05/01/ | Office | Cardiology | Silvia, | | | 2019 | Visit | | PARISA [address] | | | | | | [place], | | | | | | [place] [address] | | | | | | [phone] | | | | | | | | +--------+ + + + + | 05/21/ | Implant | Cardiology | Daljit Singletary, | Remote Device | | 2019 | Monitor | | [address] [facility] | Interrogation | | | | | [place], | (Primary Dx); | | | | | [place] [address] | Pacemaker; | | | | | [phone] | Sinoatrial node | | | | | | dysfunction (HCC) | | | | | | with symptomatic | | | | | | bradycardia | +--------+ + + + + documented as of this encounter Visit Diagnoses Not on filedocumented in this encounter"
--- OUTSIDE RECORDS SUMMARY | ~2020-04-15 | XMS | Encounter Summary ---
Demographics + + + | Address | [address] | | | [place] [address] | + + + | Home Phone [...] Team Providers + +------+ + | Care Rolled Ham Lacer Name | Role | Phone | + [...] CARDIOLOGY [address] | [address] [place] | [facility]) | | | | [place], | [place], | | | | | [place] [address] | [place] [address] | | | | | [phone] | [phone] | | | | | | | [...] | | | | | | [place] [address] | | | | | | [phone] | | | | | | | | +--------+ + + + + | 05/01/ | Procedure | Cardiology | | | | 2019 | visit | | | | +--------+ + + + + | 05/01/ | Office | Cardiology | Silvia, | | | 2019 | Visit | | PARISA Vernon [address] | | | | | | [place], | | | | | | [place] [address] | | | | | | [phone] | | | | | | | | +--------+ + + + + | 05/21/ | Implant | Cardiology | Daljit Singletary, | Remote Device | 2019 | Monitor | | 401 [facility] | Interrogation | | | | | [place], | (Primary Dx); | | | | | [place] [address] | Pacemaker; | | | | | [phone] | Sinoatrial node | | | | | | dysfunction (HCC) | | | | | | with symptomatic | | | | | | bradycardia | +--------+ + + + + documented as of this encounter Visit Diagnoses Not on filedocumented in this encounter"
--- OUTSIDE RECORDS SUMMARY | ~2020-04-15 | XMS | Encounter Summary ---
Demographics + + + | Address | [address] | | | [place] [address] | + + + | Home Phone [...] + + | 01/14/ | Hospital | [facility] | Deburi, | BACKACHE NOS | | 2004 | Encounter | MEDICAL CENTER | MD [address] | | | | | CLINICAL DECISION | S[place]AN [place] | | | | | [address] | [place] [address] | | | | | [place], [place] | [phone] | | | | | [address] | | | | | | [phone] | | | +--------+ + + + [...] | | | | | | [place], | | | | | | [place] [address] | | | | | | [phone] | | | | | | | | +--------+ + + + + | 05/01/ | Procedure | Cardiology | | | | 2019 | visit | | | | +--------+ + + + + | 05/01/ | Office | Cardiology | Silvia, | | | 2019 | Visit | | PARISA [address] | | | | | | [place], | | | | | | [place] [address] | | | | | | [phone] | | | | | | | | +--------+ + + + + | 05/21/ | Implant | Cardiology | Daljit Singletary, | Remote Device | | 2019 | Monitor | | MD [address] [place] | Interrogation | | | | | [place], | (Primary Dx); | | | | | [place] [address] | Pacemaker; | | | | | [phone] | Sinoatrial node | | | | | | dysfunction (HCC) | | | | | | with symptomatic | | | | | | bradycardia | +--------+ + + + + documented as of this encounter Visit Diagnoses + + | Diagnosis | + + | Backache, unspecified | + + documented in this encounter"
--- OUTSIDE RECORDS SUMMARY | ~2020-04-15 | XMS | Encounter Summary ---
Demographics + + + | Address | [address] | | | [place] [address] | + + + | Home Phone [...] Providers + +------+ + | Care Steam Shovel Oiler Name | Role | Phone | + +------+ + | Michael Amanda DO | PCP | | + +------+ + Encounter Details +--------+ + + + + | Date | Type | Department | Care Team | Description | +--------+ + + + + | 06/26/ | Hospital | [facility] | Michael Amanda, | Diplopia | | 2012 | Encounter | MED CTR LABORATORY | DO [address] | | | | | [address] [place] | [place], [place] | | | | | [place], [place] | [address] | | | | | [address] | | | | | | [phone] | | | +--------+ + + + [...] + + + +---------+ + + | Shoshoni-3 Fatty | CAPS, one capsule by | [...] | | | | | | [place], | | | | | | [place] [address] | | | | | | [phone] | | | | | | | | +--------+ + + + + | 05/01/ | Procedure | Cardiology | | | | 2019 | visit | | | | +--------+ + + + + | 05/01/ | Office | Cardiology | Silvia, | | | 2019 | Visit | | [address] | | | | | | [place], | | | | | | [place] [address] | | | | | | [phone] | | | | | | | | +--------+ + + + + | 05/21/ | Implant | Cardiology | Daljit Singletary, | Remote Device | | 2020 | Monitor | | MD [facility] | Interrogation | | | | | [place], | (Primary Dx); | | | | | [place] [address] | Pacemaker; | | | | | [phone] | Sinoatrial node | | | | [...] | mg/L indicate possible | | [facility] | | | | infection, [...] [address] | [place] | [phone] | | [facility] | | [address] | | | - LABORATORY | | | | + + + + + | [facility] | [address] | [place], [place] | | | [facility] | | [address], [facility] | | [...] | uIU/mL | [facility] | | | | [facility] | | MEDICAL | | | [...] + | [facility] | [address] | [place] | [phone] | | [facility] | | [address] | | | - LABORATORY | | | | + + + + + | [facility] | [address] | [place], [place] | | | [facility] | | [address] [place] [address] | | | - LABORATORY | | [...] + | [facility] | [address] | [place] | [phone] | | [facility] | | [address] | | | - LABORATORY | | | | + + + + + | [facility] | [address] | [place], [place] | | | [facility] | | [address], [facility] | | [...] + + | Performing | Address | City/[facility]/Zipcode | Phone Number | | Organization | | | | + + + + + | [facility] | [address] | [place], [place] | [phone] | | [facility] | | [address] | | | - LABORATORY | | | | + + + + + | [facility] | [address] | [place] | | | [facility] | | [address], [facility] | | [...] + | [facility] | [address] | [place] | [phone] | | [facility] | | [address] | | | - LABORATORY | | | | + + + + + | [facility] | [address] | [place], [place] | | | [facility] | | [address] [place] [address] | | | - LABORATORY | | [...] + | [facility] | [address] | [place] | [phone] | | [facility] | | [address] | | | - LABORATORY | | | | + + + + + | [facility] | [address] | [place] | | | [facility] | | [id number] [place] [address] | | | - LABORATORY | | | | + + + + + documented in this encounter Visit Diagnoses + + | Diagnosis | + + | Diplopia | + + documented in this encounter"
--- OUTSIDE RECORDS SUMMARY | ~2020-04-15 | XMS | Encounter Summary ---
Demographics + + + | Address | [address] | | | [place] [address] | + + + | Home Phone [...] Providers + +------+ + | Care Tire Layer Name | Role | Phone | [...] | | | | Sinoatrial | Geri, SENIOR WEB ARCHITECT | [address] | | | | | node | [address] | [place], | | | | | dysfunction | [place] | [place] | | | | | (HCC) | [place] | [address] | | | | | Coronary | [address] | Phone: | | | | | artery | Phone: | [phone] | | | | | disease | [phone] | Fax: | | | | | involving | Fax: | [phone] | | | | | [place] | [phone] | | | | | | coronary | | | | | | | artery of | | | | | | | [place] heart | | | | | | [...] | | | | Sinoatrial | Geri, SENIOR WEB ARCHITECT | [address] | | | | | node | [address] | [place], | | | | | dysfunction | [place] | [place] | | | | | ([facility]) | [place], [place] | [address] | | | | | Coronary | [address] | Phone: | | | | | artery | Phone: | [phone] | | | | | disease | [phone] | Fax: | | | | | involving | Fax: | [phone] | | | | | [place] | [phone] | | | | | | coronary | | | | | | | artery of | | | | | | | [place] heart | | | | | | [...] 06/16/ | [facility] | [facility] | Geri Angel, | Sinoatrial node | | 2016 | Encounter | MED CTR ECHO [address] | SENIOR WEB ARCHITECT [address] | dysfunction (HCC) | | | | [address] [place] | St [place], [place] | with symptomatic | | | | [place] [address] | [address] | bradycardia; | | | | [phone] | | Coronary artery | | | | | uJvenal Blake, | disease involving | | | | | Technologist | [place] coronary | | | [...] + + + +---------+ + + | [place]-3 Fatty | CAPS, one capsule by | [...] W | | | | | | [address] [place], | | | | | | [place] [address] | | | | | | [phone] | | | | | | | | +--------+ + + + + | 05/01/ | Procedure | Cardiology | | | | 2019 | visit | | | | +--------+ + + + + | 05/01/ | Office | Cardiology | Silvia, | | | 2019 | Visit | | [address] | | | | | | [address], | | | | | | [place] [address] | | | | | | [phone] | | | | | | | | +--------+ + + + + | 05/21/ | Implant | Cardiology | Sydni Singletary, | Remote Device | | 2019 | Monitor | | [facility] | Interrogation | | | | | [place], | (Primary Dx); | | | | | [place] [address] | Pacemaker; | | | | | [phone] | Sinoatrial node | | | | [...] (TTE) Demographics Patient Name VICTOR HUGO | [facility] | | [place] Room Number SARAH Patient | MEDICAL CENT ER | | [id number] Date of Study 06/16/2016 Number | - IMAGING | | Visit Number [id number] | | | Referring Physician JOSE ARMANDO GARCIA Number Date of 1960 | | | Rough Rice Grader LUIS FERNANDO DUARTE Age | | | 56 year(s) Interpreting | | | GURJIT TROY | | | Rn Clinical Documentation Specialist SYDNI SINGLETARY, | | | Gender | | | Male Nurse Procedure Type of Study TTE | | | procedure: ECHO Complete. Procedure dateDate: 06/16/2016Start: 10:55 | | | AM Technical Quality: Adequate visualizationStudy Location: Echo | | | LabIndications: CAD AKHIOK CORONARY ARTERY 414.01/ I25.10 and | | [...] BARRY Room Number SARAH | | Patient [id number] Date of Study 06/16/2016 Number Visit Number | | [id number] Referring Physician JOSE ARMANDO GARCIA Number | | Date of 1960 Rough Rice Grader LUIS FERNANDO DUARTE Age | | 56 year(s) Interpreting GURJIT TROY | | Rn Clinical Documentation Specialist SYDNI SINGLETARY, | | Gender Male NurseProcedureType of Study TTE | | procedure: ECHO Complete.Procedure dateDate: 06/16/2016Start: 10:55 AMTechnical Quality: | | Adequate visualizationStudy Location: Echo LabIndications: CAD AKHIOK CORONARY ARTERY | | 414.01/ I25.10 and [...] | Performing | Address | City/State/[facility] | Phone Number | | Organization | | | | + + + + + | [facility] | [address] | [place] | [phone] | | [facility] | | [address] | | | - IMAGING | | [...]
--- OUTSIDE RECORDS SUMMARY | ~2020-04-15 | XMS | Encounter Summary ---
Demographics + + + | Address | [address] | | | [place] [address] | + + + | Home Phone [...] Team Providers + +------+ + | Care Insulation Nozzleman Name | Role | Phone | + [...] 2019 | | GASTROENTEROLOGY | [address] [place], [place] | | | | | [address] [place] | [address] [place], [place] | | | | | [address] [place], [place] | [address] | | | | | [address] | | | | | | [phone] | | | +--------+ + + + [...] | | | | | | [place] [address] | | | | | | [phone] | | | | | | | [...] | | | | | | [place] [address] | | | | | | [phone] | | | | | | | | +--------+ + + + + | 05/21/ | Implant | Cardiology | Daljit Singletary, | Remote Device | 2019 | Monitor | | [address] [place] | Interrogation | | | | | [place], | (Primary Dx); | | | | | [place] [address] | Pacemaker; | | | | | [phone] | Sinoatrial node | | | | | | dysfunction (HCC) | | | | | | with symptomatic | | | | | | bradycardia | +--------+ + + + + documented as of this encounter Visit Diagnoses Not on filedocumented in this encounter"
--- OUTSIDE RECORDS SUMMARY | ~2020-04-15 | XMS | Encounter Summary ---
Demographics + + + | Address | [address] | | | [place] [address] | + + + | Home Phone [...] Team Providers + +------+ + | Care Semiconductor Testing Group Leader Name | Role | Phone | [...] + + | 01/28/ | Refill | [facility] | Kirk French | Medication Refill | | 2019 | | [facility] | MD [address] | | | | | PRIMARY [address] | [address] | | | | | [address] | [place] [address] | | | | | [place], [place] | [phone] | | | | | [address] | | | | | | [phone] | | | +--------+--------+ + + + [...] | | | | | | [place] [address] | | | | | | [phone] | | | | | | | | +--------+ + + + + | 05/01/ | Procedure | Cardiology | | | | 2019 | visit | | | | +--------+ + + + + | 05/01/ | Office | Cardiology | [place], | | | 2019 | Visit | | PARISA Vernon [address] | | | | | | [place], | | | | | | [place] [address] | | | | | | [phone] | | | | | | | | +--------+ + + + + | 05/21/ | Implant | Cardiology | Daljit Singletary, | Remote Device | | 2019 | Monitor | | [facility] | Interrogation | | | | | [place], | (Primary Dx); | | | | | [place] [address] | Pacemaker; | | | | | [phone] | Sinoatrial node | | | | | | dysfunction (HCC) | | | | | | with symptomatic | | | | | | bradycardia | +--------+ + + + + documented as of this encounter Visit Diagnoses Not on filedocumented in this encounter"
--- OUTSIDE RECORDS SUMMARY | ~2020-04-15 | XMS | Encounter Summary ---
Demographics + + + | Address | [address] | | | [place] [address] | + + + | Home Phone [...] Providers + +------+ + | Care Patient Registration Rep Name | Role | Phone | [...] 2012 | | CARDIOLOGY [address] | EXECUTIVE PRODUCER PROMOS [address] | | | | | [place], | [place], [place] | | | | | [place] [address] | [address] | | | | | [phone] | | | +--------+ + + + [...] | | | | | | [place] [address] | | | | | | [phone] | | | | | | | [...] | | | | | | [place] [address] | | | | | | [phone] | | | | | | | | +--------+ + + + + | 05/21/ | Implant | Cardiology | Daljit Singletary, | Remote Device | 2019 | Monitor | | [address] [place] | Interrogation | | | | | [place], | (Primary Dx); | | | | | [place] [address] | Pacemaker; | | | | | [phone] | Sinoatrial node | | | | [...] | | Phosphatase | | | [facility] [place] | | [...] [facility] | | [address], [facility] | | | - LABORATORY | [...] | | | LAB | | | [place], | | | | | | External [...]
--- OUTSIDE RECORDS SUMMARY | ~2020-04-15 | XMS | Encounter Summary ---
Demographics + + + | Address | [address] | | | [place] [address] | + + + | Home Phone [...] Providers + +------+ + | Care Dining Services Director Name | Role | Phone [...] + | 11/05/ | Telephone | [facility] | Daljit Singletary, | Chest Pain | | 2016 | | CARDIOLOGY [address] | MD [address] | | | | | [place], | [place], | | | | | [place] [address] | [place] [address] | | | | | [phone] | [phone] | | | | | | | [...] W | | | | | | [place], | | | | | | [place] [address] | | | | | | [phone] | | | | | | | | +--------+ + + + + | 05/01/ | Procedure | Cardiology | | | | 2019 | visit | | | | +--------+ + + + + | 05/01/ | Office | Cardiology | Silvia, | | | 2019 | Visit | | PARISA Vernon [address] | | | | | | [place], | | | | | | [place] [address] | | | | | | [phone] | | | | | | | | +--------+ + + + + | 05/21/ | Implant | Cardiology | Daljit Singletary, | Remote Device | | 2019 | Monitor | | [facility] | Interrogation | | | | | [place], | (Primary Dx); | | | | | [place] [address] | Pacemaker; | | | | | [phone] | Sinoatrial node | | | | | | dysfunction (HCC) | | | | | | with symptomatic | | | | | | bradycardia | +--------+ + + + + documented as of this encounter Visit Diagnoses Not on filedocumented in this encounter"
--- OUTSIDE RECORDS SUMMARY | ~2020-04-15 | XMS | Encounter Summary ---
Demographics + + + | Address | [address] | | | [place] [address] | + + + | Home Phone [...] Providers + +------+ + | Care Microsoft Infrastructure Consultant Name | Role | Phone [...] | | | | | region | [address] | | | | | | Procedures | [address] | | | | | | CT | [place], [place] | | | | | | Myelography | [address] | | | | | | Lumbar Spine | Phone: | | | | | | | [phone] | | | | | | | Fax: | | | | | | | [phone] | | +--------+--------+ + + + + [...] | | | | | region | [address] | | | | | | Procedures | [address] | | | | | | CT | [place], [place] | | | | | | Myelography | [address] | | | | | | Lumbar Spine | Phone: | | | | | | | [phone] | | | | | | | Fax: | | | | | | | [phone] | | +--------+--------+ + + + + Encounter Details +--------+ + + + + | Date | Type | Department | Care Team | Description | +--------+ + + + + | 04/07/ | Hospital | [facility] | Pia Akhtar | Spinal stenosis, | | 2016 | Encounter | MED CTR [address] | MD [address] | lumbar region | | | | [place], | [address] | | | | | [place] [address] | [place] [address] | | | | | [phone] | [phone] | | | | | | | [...] + + +---------+ + + | [place]-3 Fatty | CAPS, one capsule by | [...] | | | | | | [place] [address] | | | | | | [phone] | | | | | | | [...] | | | | | | [place] [address] | | | | | | [phone] | | | | | | | | +--------+ + + + + | 05/21/ | Implant | Cardiology | Daljit Singletary, | Remote Device | | 2019 | Monitor | | [address] [place] | Interrogation | | | | | [place], | (Primary Dx); | | | | | [place] [address] | Pacemaker; | | | | | [phone] | Sinoatrial node | | | | [...]
--- OUTSIDE RECORDS SUMMARY | ~2020-04-15 | XMS | Encounter Summary ---
Demographics + + + | Address | [address] | | | [place] [address] | + + + | Home Phone [...] Team Providers + +------+ + | Care Scoop Filler Name | Role | Phone | + +------+ + PCP | Unavailable | + +------+ + Encounter Details +--------+ + + + + | Date | Type | Department | Care Team | Description | +--------+ + + + + | 01/17/ | [facility] | [facility] | Jonas Ramos, | | | 2009 | Encounter | MED CTR EMERGENCY | MD [address] | | | | | CENTER [address] | [facility] [place] | | | | | [place] | [place] [address] | | | | | [address] | [phone] | | | | | [phone] | | | +--------+ + + + [...] W | | | | | | [place], | | | | | | [place] [address] | | | | | | [phone] | | | | | | | | +--------+ + + + + | 05/01/ | Procedure | Cardiology | | | | 2019 | visit | | | | +--------+ + + + + | 05/01/ | Office | Cardiology | [place]via, | | | 2019 | Visit | | PARISA Vernon W | | | | | | [place], | | | | | | [place] [address] | | | | | | [phone] | | | | | | | | +--------+ + + + + | 05/21/ | Implant | Cardiology | Daljit Singletary, | Remote Device | | 2019 | Monitor | | [address] [place] | Interrogation | | | | | [place], | (Primary Dx); | | | | | [place] [address] | Pacemaker; | | | | | [phone] | Sinoatrial node | | | | | | dysfunction (HCC) | | | | | | with symptomatic | | | | | | bradycardia | +--------+ + + + + documented as of this encounter Visit Diagnoses Not on filedocumented in this encounter"
--- OUTSIDE RECORDS SUMMARY | ~2020-04-15 | XMS | Encounter Summary ---
Demographics + + + | Address | [address] | | | [place] [address] | + + + | Home Phone [...] Providers + +------+ + | Care Project Control Manager Name | Role | Phone [...] W | reprogramming/check | | | | [place], | [address] [place] | DO NOT DELETE | | | | [place] [address] | [place] [address] | (Primary Dx); | | | | [phone] | [phone] | Pacemaker - | | | | [...] | | | | | | [place] [address] | | | | | | [phone] | | | | | | | | +--------+ + + + + | 05/01/ | Procedure | Cardiology | | | | 2019 | visit | | | | +--------+ + + + + | 05/01/ | Office | Cardiology | [place]via, | | | 2019 | Visit | | PARISA [place] W | | | | | | [place], | | | | | | [place] [address] | | | | | | [phone] | | | | | | | | +--------+ + + + + | 05/21/ | Implant | Cardiology | Daljit Singletary, | Remote Device | | 2019 | Monitor | | [facility] | Interrogation | | | | | [place], | (Primary Dx); | | | | | [place] [address] | Pacemaker; | | | | | [phone] | Sinoatrial node | | | | [...]
--- OUTSIDE RECORDS SUMMARY | ~2020-04-15 | XMS | Encounter Summary ---
Demographics + + + | Address | [address] | | | [place] [address] | + + + | Home Phone [...] Providers + +------+ + | Care Cook Boat Name | Role | Phone | + +------+ + | Kirk French MD | PCP | | + +------+ + Encounter Details +--------+---------+ + + + | Date | Type | Department | Care Team | Description | +--------+---------+ + + + | 01/05/ | Surgery | [facility] | Emmanuel Daniel MD | EGD | | 2019 | | MED CTR MP INTRA OP | [address], [place] | | | | | [address] | [address] [place], [place] | | | | | [place], [place] | [address] | | | | | [address] | | | | | | [phone] | | | +--------+---------+ + + + [...] for a few hours. Date Last Reviewed: 09/22/201619997329-6282 [employer]. [address] [place] [address]. All righ ts reserved. This information is [...] vomiting, or vomiting blood Date Last Reviewed: 05/22/201619991715-4005 [employer]. [address] [place] [address]. All righ ts reserved. This information is [...] You can't be awakened Date Last Reviewed: 09/08/201619990995-3941 [employer]. [address] [place] [address], [place] [address]. All righ ts reserved. This information is [...] | | | | | | [place] [address] | | | | | | [phone] | | | | | | | | +--------+ + + + + | 05/01/ | Procedure | Cardiology | | | | 2019 | visit | | | | +--------+ + + + + | 05/01/ | Office | Cardiology | [place]via, | | | 2019 | Visit | | PARISA [place] [address] | | | | | [address] [place], | | | | | | [place] [address] | | | | | | [phone] | | | | | | | | +--------+ + + + + | 05/21/ | Implant | Cardiology | Daljit Singletary, | Remote Device | | 2019 | Monitor | | [address] | Interrogation | | | | | [place], | (Primary Dx); | | | | | [place] [address] | Pacemaker; | | | | | [phone] | Sinoatrial node | | | | [...] [address], | REFERENCE LAB | | [place] [id number] Attorney Law Clerk: Miguel Galarza MD, Phone: | THALIARP - KINA | | [phone] | | + + + + + + + + | Performing | Address | City/State/Zipcode | Phone Number | | Organization | | | | + + + + + | REFERENCE LAB | [address] | [place], [place] | [phone] | | [facility] | [facility] | [address] | | + + + + + [...] | REFERENCE LAB | | [place] [id number] Attorney Law Clerk: Miguel Galarza MD, Phone: | ARSH CASTANON | | [phone] | | + + + + + + + + | Performing | Address | City/State/Zipcode | Phone Number | | Organization | | | | + + + + + | REFERENCE LAB | [address] [facility] [address] | [place], [place] | [phone] | | ARSH CASTANON | [facility] | [address] | | + + + + + [...] [address] | [place] | [phone] | | [facility] | | [address] | | | - LABORATORY | | [...] + | Performing | Address | City/State/Unm Cancer Centercode | Phone Number | | Organization | | | | + + + + + | [address] | [address] | [place] | [phone] | | [facility] | | [address] | | | - LABORATORY | | [...] | | | dium | | | [address] | | | Antigen | [...] [address] | [place] | [phone] | | [facility] | | [address] | | | - LABORATORY | | [...] [address] | [place] | [phone] | | [facility] | | [address] | | | - LABORATORY | | [...] [address] | [place] | [phone] | | [facility] | | [address] | | | - LABORATORY | | [...] [address] | [place] | [phone] | | [facility] | | [address] | | | - LABORATORY | | | | + + + + + DAVIAN (01/05/2019 8:36 AM PST) + + | Specimen | + + | | + + + + -+ | Narrative | Performed At | + + -+ | | [facility] | | GastroenterologyPatient Name: Moe Venegas Date: | PROVATION | | 01/05/2019 8:36 AMMRN: [id number] #: [id number] of : | | | 9Admit Type: AmbulatoryAge: 58Room: [facility] 01Gender: MaleNote | | | Status: FinalizedAttending MD: Emmanuel Daniel , [facility] | | | Upper GI endoscopyIndications: Diarrhea, Weight | | | lossProviders: Emmanuel Daniel MD, Heidi An, | | | RN, Kim Hicks, Endless Belt Finisher, | | | Jarett Barakat MD (Anesthesia [...] physician, the nurse, the anesthesiologist and the mathematical technician | | | in the endoscopy [...] | | Imaging was performed using the [employer] | | | Endoscopy (FICE) [...] Scope In: 8:43:57 AMScope Out: 8:49:50 AM [facility]. | | | [facility], [address] [place] [address] | | | [phone] | | |Recommendation: | | | - [...] |Scope Out: 8:49:50 AM | | | [facility], [address] [facility], [place], [place] | | | [address] | | + + -+ + +---------+ [...] | PROVATION | | 01/05/2019 8:36 AMMRN: [id number] #: [id number] of : | | | 9Admit Type: AmbulatoryAge: 58Room: [facility] 01Gender: MaleNote | | | Status: FinalizedAttending MD: Emmanuel Daniel , [facility]cedure: | | | ColonoscopyIndications: Clinically significant diarrhea of | | | unexplained origin, Weight lossProviders: | | | Emmanuel Daniel MD, Heidi An RN, Kim | | | Fiorella Hicks, Endless Belt Finisher, Jarett P. | | | MD Roshni [...] | | | the anesthesiologist and the mathematical technician in the endoscopy suite. | | [...] AMScope Out: | | | 9:06:28 AM [facility], [address] [place] [address], | | | [place] [address] | | | - Discharge patient to home (ambulatory). | | | - Resume previous diet today. | | | - Continue present medications. | | | - Await pathology results. | | | - Return to primary care physician as previously scheduled. | | | - Telephone GI clinic for pathology results in 1 week. | | |Emmanule Daniel MD | | |01/05/2019 9:25:47 AM [...] |Scope Out: 9:06:28 AM | | | [facility], [address] [place] [address], [place], [place] | | | [address] | | + + -+ + +---------+ [...] chronic or | | | microscopic colitis. [facility]:C3NR GROSS DESCRIPTION: A. The | | | specimen, labeled "Laura, duodenal biopsy" is received in formalin | | | and consists of seven 0.1-0.5 cm lin fragments. Entirely submitted in | | | (A1). B. The specimen, labeled "[place], right colon" is received | | | in formalin and consists of six 0.2-0.3 cm lin fragments. Entirely | | | submitted in (B1). C. The specimen, labeled "[place], left colon" | | | is received in formalin and consists of six 0.2-0.3 cm lin-pink | | | fragments. Entirely submitted in (C1). am:AMB:portillo PERFORMING | | | LABORATORY: The technical component was performed by [facility] | | | [facility], [address] [address] (Building Maintenance Engineer: | | | Kailey Stafford MD; CLIA# [id number]). Professional interpretation was | | | performed by [facility], [facility], [address] | | | [place] [address] (Building Maintenance Engineer: Ishaan | | | Anthony Dao; [facility]#: [id number]). Diagnostician: Ishaan Fitzpatrick | | | Sylwia [...]
--- OUTSIDE RECORDS SUMMARY | ~2020-04-15 | XMS | Encounter Summary ---
Demographics + + + | Address | [address] | | | [place] [address] | + + + | Home Phone [...] Team Providers + +------+ + | Care Lithographing Machine Operator Name | Role | Phone [...] | | CARDIOLOGY [address] | [address] | | | | | [place], | [place], | | | | | [place] [address] | [place] [address] | | | | | [phone] | [phone] | | | | | | | [...] W | | | | | | [place], | | | | | | [place] [address] | | | | | | [phone] | | | | | | | | +--------+ + + + + | 05/01/ | Procedure | Cardiology | | | | 2019 | visit | | | | +--------+ + + + + | 05/01/ | Office | Cardiology | Silvia, | | | 2019 | Visit | | PARISA Vernon [address] | | | | | | [place], | | | | | | [place] [address] | | | | | | [phone] | | | | | | | | +--------+ + + + + | 05/21/ | Implant | Cardiology | Daljit Singletary, | Remote Device | | 2019 | Monitor | | [address] [facility] | Interrogation | | | | | [place], | (Primary Dx); | | | | | [place] [address] | Pacemaker; | | | | | [phone] | Sinoatrial node | | | | | | dysfunction (HCC) | | | | | | with symptomatic | | | | | | bradycardia | +--------+ + + + + documented as of this encounter Visit Diagnoses Not on filedocumented in this encounter"
--- OUTSIDE RECORDS SUMMARY | ~2020-04-15 | XMS | Encounter Summary ---
Demographics + + + | Address | [address] | | | [place] [address] | + + + | Home Phone [...] Team Providers + +------+ + | Care Pet House Sitter Name | Role | Phone | [...] + + | 06/26/ | Office | [facility] | Geri Angel, | Coronary artery | | 2015 | Visit | CARDIOLOGY [address] | DAIRY HUSBANDRY WORKER [address] | disease involving | | | | [place], | [facility] [facility] [place] | grand traverse coronary | | | | [place] [address] | [address] | artery without | | | | [phone] | | angina pectoris | | | [...] not occur with exertion. He went to [facility] at the end of for his [...] up to a month due to his pwjpty-pv-bul having a significant stroke there MEDICAL, SURGICAL, [...] health care Coronary artery disease involving grand traverse coronary artery without angina pectoris Cannabis abuse, [...] by mouth Daily. 30 tabl et 6 [facility] (OSTEO BI-FLEX/5-LOXIN ADVANCED PO) Take [...] 3rd dose, call 911 25 tablet 11 [place]-3 Fatty Acids (SALMON OIL-1000 PO) CAPS, one [...] Daily. to reduce urinary frequenc y Lot #[id number], exp 07/2016 21 capsule 0 Specialty Vitamins [...] PLTEX 163 07/26/2014 I reviewed records from aJy Gambino MD for office visit on 11/30/14. I reviewed records from PCP for office visit on 11/26/14. DEVICE INTERROGATION DATE OF SERVICE: June 26, 2015 PATIENT NAME: Moe Sanchez DATE OF : 1960 INTERROGATION PERFORMED BY: PARISA Velazquez. INTERROGATION REVIEWED BY: PARISA Velazquez DEVICE IDENTIFICATION: Chief Nursing Executive: TRiQ. Leads: Right atrium and right ventricle (dual [...] to go back in 3 days to [place] for an attempt of ablation under [...] dizziness. He is in class I-II of [place] Heart Association functional class. T here are [...] this chart may have been created with [employer] voice recognition software. Occasi onal wrong-word or [...] | | | | | | [place] [address] | | | | | | [phone] | | | | | | | [...] | | | | | | [place] [address] | | | | | | [phone] | | | | | | | | +--------+ + + + + | 05/21/ | Implant | Cardiology | Daljit Singletary, | Remote Device | | 2020 | Monitor | | [address] [facility] | Interrogation | | | | | [place], | (Primary Dx); | | | | | [place] [address] | Pacemaker; | | | | | [phone] | Sinoatrial node | | | | [...] PARISA Velazquez DEVICE IDENTIFICATION: | | | Chief Nursing Executive: TRiQ. Leads: Right atrium and right | | [...] + | Coronary artery disease involving grand traverse coronary artery without angina pectoris - | | Primary | + + | SINUS BRADYCARDIA Sinoatrial node dysfunction | + + | Essential hypertension Unspecified essential hypertension | + + | Hyperlipidemia Other and unspecified hyperlipidemia | + + | Symptomatic PVCs Other premature beats | + + documented in this encounter
--- OUTSIDE RECORDS SUMMARY | ~2020-04-15 | XMS | Encounter Summary ---
Demographics + + + | Address | [address] | | | [place] [address] | + + + | Home Phone [...] + +------+ + | Care Human Resources Vice President Name | Role | Phone [...] + + | 08/29/ | [facility] | [facility] | [place], | Essential | | 2015 | Visit | CARDIOLOGY [address] | [place] [address] | hypertension | | | | [place], | [place], | (Primary Dx); | | | | [place] [address] | [place] [address] | Coronary artery | | | | [phone] | [phone] | disease involving | | | | | | eyak coronary | | | | | | [...] was seen in the emergency room at [facility] on 08/23/20 15 and the ER physician reviewed his chart saying that there were 2 ultrasounds from [facility] both of them are clear of DVT but reveal some venous insufficiency. Today, arian ent tells me that he started having swelling in both his feet within a week when he got to [facility]. He had extensive traveling. He [...] Preventative health care Coronary artery disease involving eyak coronary artery without angina pectoris Cannabis abuse, [...] by mouth every evening. 90 tablet 3 Post Acute Medical Rehabilitation [...] 3rd dose, call 911 100 tablet 3 [place]-3 Fatty Acids (SALMON OIL-1000 PO) CAPS, [...] Daily. to reduce urinary frequenc y Lot #[id number], exp 07/2016 (Patient taking differently: Take 8 mg by mouth Daily. PATIENT STA YOSELIN NO LONGER TAKING THIS MEDICATION. STATED ON 08/29/2015. to reduce urinary frequency Lot #[id number], exp 07/2016) 21 capsule 0 Specialty Vitamins [...] PLTEX 163 07/26/2014 [facility] [...] brought reports to the emergency room at [facility] and according to the not [...] to go back in 3 days to [place] for an attempt of ablation under general [...] dizziness. He is in class I-II of [place] Heart Association functional class. T here are [...] this chart may have been created with [employer] voice recognition software. Occasi onal wrong-word [...] W | | | | | | [place], | | | | | | [place] [address] | | | | | | [phone] | | | | | | | | +--------+ + + + + | 05/01/ | Procedure | Cardiology | | | | 2019 | visit | | | | +--------+ + + + + | 05/01/ | Office | Cardiology | [place], | | | 2019 | Visit | | PARISA Vernon W | | | | | | [place], | | | | | | [place] [address] | | | | | | [phone] | | | | | | | | +--------+ + + + + | 05/21/ | Implant | Cardiology | Sydni Singletary, | Remote Device | 2019 | Monitor | | MD [address] [place] | Interrogation | | | | | [place], | (Primary Dx); | | | | | [place] [address] | Pacemaker; | | | | | [phone] | Sinoatrial node | | | | [...] the | | | | PDT | eyak coronary | results section. | | | [...] HISTORY: DVT. COMPARISON: None. TECHNIQUE: Compression | [facility] | | sonography was performed from the groin through the popliteal fossa | [facility] | | in both lower extremities.. [...] conveyed to the ordering provider, by the berry picker machine operator, | | | immediately following the exam. [...] to the ordering provider, by the | |berry picker machine operator, immediately following the exam. | | | | | |Dictated and Signed by: Emmanuel Gibbons MD | | Electronically signed: 08/29/2015 3:25 PM | + + + + + + + | Performing | Address | City/State/Zipcode | Phone Number | | Organization | | | | + + + + + | [facility] | [address] | [place] | [phone] | | [facility] | | [address] | | | - IMAGING | | [...] MD | | | | | | ([id number]) on 08/29/2015 | | | | | [...] + + | Coronary artery disease involving eyak coronary artery without angina pectoris | + + | DVT (deep venous thrombosis), bilateral | + + documented in this encounter
--- OUTSIDE RECORDS SUMMARY | ~2020-04-15 | XMS | Encounter Summary ---
Demographics + + + | Address | [address] | | | [place] [address] | + + + | Home Phone [...] Providers + +------+ + | Care Trade Marker Name | Role | Phone | [...] [place], | | | | | | [place] [address] | | | | | | [phone] | | | +--------+ + + + [...] [place], | | | | | | [place] [address] | | | | | | [phone] | | | | | | | | +--------+ + + + + | 05/01/ | Procedure | Cardiology | | | | 2019 | visit | | | | +--------+ + + + + | 05/01/ | Office | Cardiology | [place], | | | 2019 | Visit | | PARISA Vernon W | | | | | | [place], | | | | | | [place] [address] | | | | | | [phone] | | | | | | | | +--------+ + + + + | 05/21/ | Implant | Cardiology | Daljit Singletary, | Remote Device | 2019 | Monitor | | [address] | Interrogation | | | | | [place], | (Primary Dx); | | | | | [place] [address] | Pacemaker; | | | | | [phone] | Sinoatrial node | | | | | | dysfunction (HCC) | | | | | | with symptomatic | | | | | | bradycardia | +--------+ + + + + documented as of this encounter Visit Diagnoses Not on filedocumented in this encounter"
--- OUTSIDE RECORDS SUMMARY | ~2020-04-15 | XMS | Encounter Summary ---
Demographics + + + | Address | [address] | | | [place] [address] | + + + | Home Phone [...] + +------+ + | Care Equal Opportunity Specialist Name | Role | Phone | + +------+ + PCP | Unavailable | + +------+ + Encounter Details +--------+ + + + + | Date | Type | Department | Care Team | Description | +--------+ + + + + | 12/16/ | [facility] | [facility] | Naresh Mckeon | | | 2010 | Encounter | MED CTR SLEEP | MD Chaya [address] | | | | | CENTER [address] | [place] | | | | | [place] | [place] [address] | | | | | [address] | [phone] | | | | | [phone] | | | +--------+ + + + [...] | | | | | | [place], | | | | | | [place] [address] | | | | | | [phone] | | | | | | | | +--------+ + + + + | 05/01/ | Procedure | Cardiology | | | | 2019 | visit | | | | +--------+ + + + + | 05/01/ | Office | Cardiology | [place]via | | | 2019 | Visit | | PARISA Vernon W | | | | | | [place], | | | | | | [place] [address] | | | | | | [phone] | | | | | | | | +--------+ + + + + | 05/21/ | Implant | Cardiology | Daljit Singletary, | Remote Device | 2019 | Monitor | | MD [address] [place] | Interrogation | | | | | [place], | (Primary Dx); | | | | | [place] [address] | Pacemaker; | | | | | [phone] | Sinoatrial node | | | | | | dysfunction (HCC) | | | | | | with symptomatic | | | | | | bradycardia | +--------+ + + + + documented as of this encounter Visit Diagnoses Not on filedocumented in this encounter"
--- OUTSIDE RECORDS SUMMARY | ~2020-04-15 | XMS | Encounter Summary ---
Demographics + + + | Address | [address] | | | [place] [address] | + + + | Home Phone [...] Team Providers + +------+ + | Care Wound Care Nurse Name | Role | Phone | [...] Refill | | 2014 | | [facility] [place] | DO [address] | | | | | [address] | [place] | | | | | [place], [place] | [address] | | | | | [address] | | | | | | [phone] | | | +--------+--------+ + + + [...] W | | | | | | [place], | | | | | | [place] [address] | | | | | | [phone] | | | | | | | | +--------+ + + + + | 05/01/ | Procedure | Cardiology | | | | 2019 | visit | | | | +--------+ + + + + | 05/01/ | Office | Cardiology | [place]via, | | | 2019 | Visit | | PARISA Vernon W | | | | | | [place], | | | | | | [place] [address] | | | | | | [phone] | | | | | | | | +--------+ + + + + | 05/21/ | Implant | Cardiology | Daljit Singletary, | Remote Device | | 2019 | Monitor | | [address] [place] | Interrogation | | | | | [place], | (Primary Dx); | | | | | [place] [address] | Pacemaker; | | | | | [phone] | Sinoatrial node | | | | | | dysfunction (HCC) | | | | | | with symptomatic | | | | | | bradycardia | +--------+ + + + + documented as of this encounter Visit Diagnoses Not on filedocumented in this encounter"
--- OUTSIDE RECORDS SUMMARY | ~2020-04-15 | XMS | Encounter Summary ---
Demographics + + + | Address | [address] | | | [place] [address] | + + + | Home Phone [...] Team Providers + +------+ + | Care Auger Machine Offbearer Name | Role | Phone | [...] | CARDIOLOGY [address] | MD [address] [place] | | | | | [place], | [place], | | | | | [place] [address] | [place] [address] | | | | | [phone] | | | | | | | [...] | | | | | | [place], | | | | | | [place] [address] | | | | | | [phone] | | | | | | | | +--------+ + + + + | 05/01/ | Procedure | Cardiology | | | | 2019 | visit | | | | +--------+ + + + + | 05/01/ | Office | Cardiology | Silvia, | | | 2019 | Visit | | [address] | | | | | | [place], | | | | | | [place] [address] | | | | | | [phone] | | | | | | | | +--------+ + + + + | 05/21/ | Implant | Cardiology | Daljit Singletary, | Remote Device | | 2020 | Monitor | | MD [facility] | Interrogation | | | | | [place], | (Primary Dx); | | | | | [place] [address] | Pacemaker; | | | | | [phone] | Sinoatrial node | | | | | | dysfunction (HCC) | | | | | | with symptomatic | | | | | | bradycardia | +--------+ + + + + documented as of this encounter Visit Diagnoses Not on filedocumented in this encounter"
--- OUTSIDE RECORDS SUMMARY | ~2020-04-15 | XMS | Encounter Summary ---
Demographics + + + | Address | [address] | | | [place] [address] | + + + | Home Phone [...] Team Providers + +------+ + | Care Seafood Preparer Name | Role | Phone | [...] | | CARDIOLOGY [address] | Janeen ESL TEACHER [address] | | | | | [place], | [place], | | | | | [place] [address] | [place] [address] | | | | | [phone] | [phone] | | | | | | | [...] | | | | | | [place] [address] | | | | | | [phone] | | | | | | | [...] | | | | | | [place] [address] | | | | | | [phone] | | | | | | | | +--------+ + + + + | 05/21/ | Implant | Cardiology | Daljit Singletary, | Remote Device | 2019 | Monitor | | MD [address] [place] | Interrogation | | | | | [facility] [place], | (Primary Dx); | | | | | [place] [address] | Pacemaker; | | | | | [phone] | Sinoatrial node | | | | | | dysfunction (HCC) | | | | | | with symptomatic | | | | | | bradycardia | +--------+ + + + + documented as of this encounter Visit Diagnoses Not on filedocumented in this encounter"
--- OUTSIDE RECORDS SUMMARY | ~2020-04-15 | XMS | Encounter Summary ---
Demographics + + + | Address | [address] | | | [place] [address] | + + + | Home Phone [...] + +------+ + | Care Health Program Manager Name | Role | Phone | + +------+ + | Michael Amanda DO | PCP | | + +------+ + Encounter Details +--------+ + + + + | Date | Type | Department | Care Team | Description | +--------+ + + + + | 01/30/ | Hospital | [facility] | Jay Gambino MD | | | 2012 - | Encounter | [facility] | [address] | | | | | CARDIAC TELEMETRY | [address] [place], | | | 01/31/ | | [address] | [place] [address] | | | 2012 | | [place] | [phone] | | | | | [address] | | | | | | [phone] | | | +--------+ + + + [...] 1960 ADMISSION DATE: 01/30/2013 DISCHARGE DATE: 01/31/2013 [id number] / [id number] ADMITTING DIAGNOSES: 1. Symptomatic PVCs. 2. Sinus [...] 150, 1 to 2 tabs daily. 10. [place]-3 fatty acids 1000 mg b.i.d. MOE GAY ADM:01/30/13 [id number] 01/31/13 [place] DISCHARGE SUMMARY [id number] [facility] Carmela Cuevas PAC B [facility] MD Meena Pleitez THIS REPORT IS CONFIDENTIAL AND NOT TO BE RELEASED WITHOUT PROPER AUTHORIZATION. [facility] 11. Valacyclovir 500 mg daily. B. New medication added: Diltiazem CD 180 a day. FOLLOWUP: The patient has a followup appointment on 03/02/2013 at 10:[address] Niles meza at the [facility] [place], [address]. No heavy lifting or driving times 48 hours. YOANA Barlow MD A P [facility] #[id number] cc: MD Carmela Pleitez PA-C Electronically Signed 02/06/13 1616 LAKESHIA Barlow Electronically Signed 02/20/13 0731 Jay Gambino MD MOE GAY ADM:01/30/13 [id number] 01/31/13 DIS [place] DISCHARGE SUMMARY [id number] [facility] LAKESHIA Barlow B [facility] Jay Gambino MD R THIS REPORT IS CONFIDENTIAL AND NOT TO BE RELEASED WITHOUT PROPER AUTHORIZATION.Electronica lly signed by Jael Brown at 02/20/2013 7:31 AM FRANCYZzCarmela Moncada - 02/01/20 13 8:44 AM PDT PATIENT NAME: MOE GAY Sex/Age: M / 52Y : 1960 ADMISSION DATE: 01/30/2013 DISCHARGE DATE: 01/31/2013 [id number] / [id number] ADMITTING DIAGNOSES: 1. Symptomatic PVCs. 2. Sinus [...] 150, 1 to 2 tabs daily. 10. [place]-3 fatty acids 1000 mg b.i.d. MOE GAY ADM:01/30/13 [id number] 01/31/13 DIS [place] DISCHARGE SUMMARY [id number] [facility] LAKESHIA Barlow B [facility] MD Meena Pleitez THIS REPORT IS CONFIDENTIAL AND NOT TO BE RELEASED WITHOUT PROPER AUTHORIZATION. [facility] 11. Valacyclovir 500 mg daily. B. New medication added: Diltiazem CD 180 a day. FOLLOWUP: The patient has a followup appointment on 03/02/2013 at 10:[address] Niles meza at the [facility] [place], [address]. No heavy lifting or driving times 48 hours. YOANA Barlow MD A [facility] #[id number] cc: MD Carmela Pleitez PA-C Electronically Signed 02/06/13 1616 LAKESHIA Barlow MOE GAY ADM:01/30/13 [id number] 01/31/13 DIS [place] DISCHARGE SUMMARY [id number] [facility] LAKESHIA Barlow ES B [facility] Jay Gambino MD R THIS REPORT [...] + + +---------+ + + | [place]-3 Fatty | CAPS, one capsule by | [...] | | | | | | [place] [address] | | | | | | [phone] | | | | | | | | +--------+ + + + + | 05/01/ | Procedure | Cardiology | | | | 2019 | visit | | | | +--------+ + + + + | 05/01/ | Office | Cardiology | Silvia, | | | 2019 | Visit | | [address] | | | | | | [place], | | | | | | [place] [address] | | | | | | [phone] | | | | | | | | +--------+ + + + + | 05/21/ | Implant | Cardiology | Daljit Singletary, | Remote Device | | 2019 | Monitor | | MD Sim [place] | Interrogation | | | | | [place], | (Primary Dx); | | | | | [place] [address] | Pacemaker; | | | | | [phone] | Sinoatrial node | | | | [...] + + | YESSY JONES | [address] | [place] [address] | | | [facility] | [...] + + | TRENTONE ROBERT | [address] [place]. | [place] [address] | | | [facility] | | | | | LABORATORY | [...] Polish | 65 - 99 mg/dL | [facility] | | | | Diabetes Association | [...] + + | YESSY JONES | [address] | [place] [address] | | | HEART [facility] | | | | | LABORATORY | | | | + + + + + | YESSY JONES | | | | | HEART [facility] | | | | | LABORATORY | | | | + + + + + documented in this encounter Visit Diagnoses Not on filedocumented in this encounter"
--- OUTSIDE RECORDS SUMMARY | ~2020-04-15 | XMS | Encounter Summary ---
Demographics + + + | Address | [address] [place] [address] [address] LOZ[address]O | | | [place] [address] | + + + | Home Phone [...] [place] | | | | | [address] | | + + + + + Care Team Providers + +------+ + | Care Library Cataloging Technician Name | Role | Phone | [...] Chest pain | Farooq Almaguer, | Chh[facility] [address] | | | | | Bradycardia | DO [address] | [address] | | | | | Procedures | [address] | Mailcode: | | | | | | Palak Desai | [facility] | | | | | TRANSTHORACI | [place], [place] | for Health | | | | | C | [address] | and Healing, | | | | | ECHOCARDIOGR | Phone: | Building 1 | | | | | AM, ADULT | [phone] | [place], [place] | | | | | | Fax: | [address] | | | | | | [phone] | Phone: | | | | | | | [phone] | +--------+--------+ + + + + Reason [...] | | | | | | | [place] [address] | | | | | | | Phone: | | | | | | | [phone] | | | | | | | Fax: | | | | | | | [phone] | | +--------+--------+ + + + + Encounter Details +--------+---------+ + + + | Date | Type | Department | Care Team | Description | +--------+---------+ + + + | 02/03/ | Office | Cardiology General | Arlette Drew, | Chest pain (Primary | | 2010 | Visit | at [facility] [address] | MD | Dx); Bradycardia; | | | | Ave Mailcode: CH7C | | Pacemaker | | | | [facility] | | | | | | and Healing, | | | | | | Building | | | | | | Floor [place], [place] | | | | | | [address] | | | | | | [phone] | | | +--------+---------+ + + + [...] per Dr. Drew's note. Farooq Jamil DO Medicine Worker Clinical gear repairer/ Division of Cardiovascular Medicine Yajaira Borges, [place] - 02/09/2011 12:59 PM PDT PACEMAKER HISTORY Primary Care Provider: Darion Holden DO Unit Secy: Arlette Drew MD Moe Sanchez is a [...] chamber permanent pacemaker implantation on 06/14/09 [place], Chronic smoker, mild DIDIER, bip olar disorder with anxiety who presents for second opinion regarding his syncopal episodes. Pt. started noticing dizzy spells and episodes of syncope about 3 years ago , pacemaker was put at the recommendation of Unit Secy Dr. Singletary from [place]. [place]. Pt. states lala bhatti was put>1 [...] form tilt table testing but NA at [facility] May need to involve endocrine [...] Dr. Omero DREW MD CARDIOLOGY - GENERAL [address] Mailcode: Ch9a [facility], 9th Floor [facility] [address] documented in this en counter [...] ([facility]) | [facility] | | [facility] [address] [facility] | REGIONAL | | [place] [address] | LABORATORY | + + + + + + + + | Performing | Address | City/State/Zipcode | Phone Number | | Organization | | | | + + + + + | [facility] | [address] | [place] [address] | | | LABORATORY | | | [...] RLB ([facility]) | | | [place] [address] | | | [place] [facility] [place] [address] | | + + + + + + + + | Performing | Address | City/State/Zipcode | Phone Number | | Organization | | | | + + + + + | [facility] | [address] | [place] [address] | | | LABORATORY | | | [...] | | | DEPARTMENT | | | [place] | | | OF | | | [...] | + + + + + | [facility] DEPARTMENT | [address] | [place] [address] | | | PATHOLOGY | [address] [...] DEPT OF | [address] | [place], [place] | | | CARDIOLOGY | [address] | [address] | | + + + + + [...] DEPT OF | [address] | [place], [place] | | | CARDIOLOGY | [address] | [address] | | + + + + + [...] view image for the detailed interpretation from [facility] results. | CARDIOLOGY | + + + + + + + + | Performing | Address | City/State/Zipcode | Phone Number | | Organization | | | | + + + + + | [facility] DEPT OF | [address] | [place], [place] | | | CARDIOLOGY | [address] | [address] | | + + + + + documented in this encounter Visit Diagnoses + + | Diagnosis | + + | Chest pain - Primary Chest pain, unspecified | + + | Bradycardia Other specified cardiac dysrhythmias | + + | Pacemaker Cardiac pacemaker in situ | + + documented in this encounter
--- OUTSIDE RECORDS SUMMARY | ~2020-04-15 | XMS | Encounter Summary ---
Demographics + + + | Address | [address] | | | [place] [address] | + + + | Home Phone [...] Providers + +------+ + | Care Retail Reset Merchandiser Name | Role | Phone | [...] 2012 | | CARDIOLOGY [address] | TRAIN ELECTRONIC TECHNICIAN [address] [place] | to be referred | | | | [place], | [facility] [place] | soon) | | | | [place] [address] | [address] | | | | | [phone] | | | +--------+ + + + [...] | | | | | | [place] [address] | | | | | | [phone] | | | | | | | [...] | | | | | | [place] [address] | | | | | | [phone] | | | | | | | | +--------+ + + + + | 05/21/ | Implant | Cardiology | Daljit Singletary, | Remote Device | | 2020 | Monitor | | [facility] | Interrogation | | | | | [place] [place], | (Primary Dx); | | | | | [place] [address] | Pacemaker; | | | | | [phone] | Sinoatrial node | | | | | | dysfunction (HCC) | | | | | | with symptomatic | | | | | | bradycardia | +--------+ + + + + documented as of this encounter Visit Diagnoses Not on filedocumented in this encounter"
--- OUTSIDE RECORDS SUMMARY | ~2020-04-15 | XMS | Encounter Summary ---
Demographics + + + | Address | [address] | | | [place] [address] | + + + | Home Phone [...] Providers + +------+ + | Care Cream Hauler Name | Role | Phone | [...] [place] | | | | | [address] [place], [place] | [place] [address] | | | | | [address] | [phone] | | | | | [phone] | | | +--------+ + + + [...] W | | | | | | [place], | | | | | | [place] [address] | | | | | | [phone] | | | | | | | | +--------+ + + + + | 05/01/ | Procedure | Cardiology | | | | 2019 | visit | | | | +--------+ + + + + | 05/01/ | Office | Cardiology | Silvia, | | | 2019 | Visit | | PARISA Vernon [address] | | | | | | [place], | | | | | | [place] [address] | | | | | | [phone] | | | | | | | | +--------+ + + + + | 05/21/ | Implant | Cardiology | Daljit Singletary, | Remote Device | | 2019 | Monitor | | [address] | Interrogation | | | | | [place], | (Primary Dx); | | | | | [place] [address] | Pacemaker; | | | | | [phone] | Sinoatrial node | | | | [...]
--- OUTSIDE RECORDS SUMMARY | ~2020-04-15 | XMS | Encounter Summary ---
Demographics + + + | Address | [address] | | | [place] [address] | + + + | Home Phone [...] Providers + +------+ + | Care Manager Cable Name | Role | Phone | [...] | | CARDIOLOGY [address] | [address] [place] | | | | | [place], | [place], | | | | | [place] [address] | [place] [address] | | | | | [phone] | [phone] | | | | | | | [...] | | | | | | [place] [address] | | | | | | [phone] | | | | | | | [...] | | | | | | [place] [address] | | | | | | [phone] | | | | | | | | +--------+ + + + + | 05/21/ | Implant | Cardiology | Daljit Singletary, | Remote Device | | 2019 | Monitor | | [facility] | Interrogation | | | | | [address], | (Primary Dx); | | | | | [place] [address] | Pacemaker; | | | | | [phone] | Sinoatrial node | | | | | | dysfunction (HCC) | | | | | | with symptomatic | | | | | | bradycardia | +--------+ + + + + documented as of this encounter Visit Diagnoses Not on filedocumented in this encounter"
--- OUTSIDE RECORDS SUMMARY | ~2020-04-15 | XMS | Encounter Summary ---
Demographics + + + | Address | [address] | | | [place] [address] | + + + | Home Phone [...] Providers + +------+ + | Care Form Block Maker Name | Role | Phone [...] [place] | | | | | [place] | | [address] Phone: | | | | | CYSTO/URETER | | [phone] | | | | | O | | Fax: | | | | | W/LITHOTRIPS | | [phone] | | | | | Y &INDWELL [...] | | | | | [address] | [place] | | | | | [place] | [address] | | | | | [address] | | | | | | [phone] | | | +--------+ + + + [...] +----+---+ + + | | 0 | [place] | | | | 8 | 43-degrees | | | | 2 | | | | | 7 | | | +----+---+ + + | | 0 | First | | | | 8 | Inc/Proc St | | | | 2 | | | | | 8 | | | +----+---+ + + | | 0 | [place] off | | | | 9 | [...] 04/13/19 1219 by | | eral | [id number] catheter system; | Dominga Steen RN | [...] Placement Time: 815 (created via | Jay Benjaimn MD | Jay Benjamin MD | | [...] | | | | | | [place] [address] | | | | | | [phone] | | | | | | | | +--------+ + + + + | 05/01/ | Procedure | Cardiology | | | | 2019 | visit | | | | +--------+ + + + + | 05/01/ | Office | Cardiology | [place], | | | 2019 | Visit | | [address] | | | | | | [place], | | | | | | [place] [address] | | | | | | [phone] | | | | | | | | +--------+ + + + + | 05/21/ | Implant | Cardiology | Daljit Singletary, | Remote Device | | 2019 | Monitor | | MD [address] | Interrogation | | | | | [place], | (Primary Dx); | | | | | [place] [address] | Pacemaker; | | | | | [phone] | Sinoatrial node | | | | [...]
--- OUTSIDE RECORDS SUMMARY | ~2020-04-15 | XMS | Encounter Summary ---
Demographics + + + | Address | [address] | | | [place] [address] | + + + | Home Phone [...] Providers + +------+ + | Care Plant Control Aide Name | Role | Phone [...] | Telephone | [facility] [place] | [place], | Other (not feeling | | 2013 | | [place] [address] | [address] | [place]) | | | | [place], | [place], | | | | | [place] [address] | [place] [address] | | | | | [phone] | [phone] | | | | | | | [...] W | | | | | | [place], | | | | | | [place] [address] | | | | | | [phone] | | | | | | | | +--------+ + + + + | 05/01/ | Procedure | Cardiology | | | | 2019 | visit | | | | +--------+ + + + + | 05/01/ | Office | Cardiology | [place], | | | 2019 | Visit | | [address] | | | | | | [place], | | | | | | [place] [address] | | | | | | [phone] | | | | | | | | +--------+ + + + + | 05/21/ | Implant | Cardiology | Daljit Singletary, | Remote Device | | 2019 | Monitor | | [facility] | Interrogation | | | | | [address], | (Primary Dx); | | | | | [place] [address] | Pacemaker; | | | | | [phone] | Sinoatrial node | | | | | | dysfunction (HCC) | | | | | | with symptomatic | | | | | | bradycardia | +--------+ + + + + documented as of this encounter Visit Diagnoses Not on filedocumented in this encounter"
--- OUTSIDE RECORDS SUMMARY | ~2020-04-15 | XMS | Encounter Summary ---
Demographics + + + | Address | [address] | | | [place] [address] | + + + | Home Phone [...] Providers + +------+ + | Care Career Based Intervention Coordinator Name | Role | Phone | [...] Provider Unknown | | | | | [place], [place] | [phone] | | | | | [address] | | | | | | [phone] | | | +--------+ + + + [...] + + + +---------+ + + | Minoa-3 Fatty | CAPS, one capsule by | [...] W | | | | | | [place], | | | | | | [place] [address] | | | | | | [phone] | | | | | | | | +--------+ + + + + | 05/01/ | Procedure | Cardiology | | | | 2019 | visit | | | | +--------+ + + + + | 05/01/ | Office | Cardiology | [place], | | | 2019 | Visit | | [address] | | | | | | [place], | | | | | | [place] [address] | | | | | | [phone] | | | | | | | | +--------+ + + + + | 05/21/ | Implant | Cardiology | Daljit Singletary, | Remote Device | | 2019 | Monitor | | [address] [place] | Interrogation | | | | | [place], | (Primary Dx); | | | | | [place] [address] | Pacemaker; | | | | | [phone] | Sinoatrial node | | | | [...]
--- OUTSIDE RECORDS SUMMARY | ~2020-04-15 | XMS | Encounter Summary ---
Demographics + + + | Address | [address] | | | [place] [address] | + + + | Home Phone [...] + +------+ + | Care Mortgage Loan Closer Name | Role | Phone | [...] 2019 | | GASTROENTEROLOGY | MD [address] | | | | | [address] | Jay [address]ane. [place] | | | | | [address] [place] | [place] [address] | | | | | [address] | | | | | | [phone] | | | +--------+ + + + [...] W | | | | | | [place], | | | | | | [place] [address] | | | | | | [phone] | | | | | | | | +--------+ + + + + | 05/01/ | Procedure | Cardiology | | | | 2019 | visit | | | | +--------+ + + + + | 05/01/ | Office | Cardiology | [place], | | | 2019 | Visit | | [address] | | | | | | [place], | | | | | | [place] [address] | | | | | | [phone] | | | | | | | | +--------+ + + + + | 06/30/ | Implant | Cardiology | Daljit Singletary, | Remote Device | | 2019 | Monitor | | [facility] | Interrogation | | | | | [address], | (Primary Dx); | | | | | [place] [address] | Pacemaker; | | | | | [phone] | Sinoatrial node | | | | | | dysfunction (HCC) | | | | | | with symptomatic | | | | | | bradycardia | +--------+ + + + + documented as of this encounter Visit Diagnoses Not on filedocumented in this encounter"
--- OUTSIDE RECORDS SUMMARY | ~2020-04-15 | XMS | Encounter Summary ---
Demographics + + + | Address | [address] [place] [address] [address] | | | [place] [address] | + + + | Home Phone [...] [place] | | | | | [address] | | + + + + + Care Team Providers + +------+ + | Care Body Design Checker Name | Role | Phone | [...] | | | [address] | [facility] [place] | | | | | Mailcode: [place] | [address] | | | | | for Health and | [phone] | | | | | [facility] [address] | | | | | | [place], [place] | | | | | | [address] | | | | | | [phone] | | | +--------+ + + + [...]
--- OUTSIDE RECORDS SUMMARY | ~2020-04-15 | XMS | Encounter Summary ---
Demographics + + + | Address | [address] | | | [place] [address] | + + + | Home Phone [...] + +------+ + | Care Computer Systems Security Administrator Name | Role | Phone [...] abdominal | [address] | [address], | | | | | pain | [address] [place] | [place] [address] | | | | | Chronic pain | [address] | [place], | | | | | syndrome | [place], [place] | [place] [address] | | | | | Procedures | [address] | Phone: | | | | | Office Visit | Phone: | [phone] | | | | | | [phone] | Fax: | | | | | | Fax: | [phone] | | | | | | [phone] | | +--------+--------+ + + + + Encounter Details +--------+---------+ + + + | Date | Type | Department | Care Team | Description | +--------+---------+ + + + | 12/02/ | Office | [facility] [place] | Emmanuel Daniel MD | Diarrhea, | | 2018 | Visit | GASTROENTEROLOGY | [address], [place] | unspecified type | | | | [address] [place] | [address] [place], [place] | (Primary Dx); Weight | | | | [address] [place], [place] | [address] | loss, | | | | [address] | | unintentional; | | | | [phone] | | Generalized | | | | [...] | | | | | | [place] [address] | | | | | | [phone] | | | | | | | | +--------+ + + + + | 05/01/ | Procedure | Cardiology | | | | 2019 | visit | | | | +--------+ + + + + | 05/01/ | Office | Cardiology | [place], | | | 2019 | Visit | | [address] | | | | | | [place], | | | | | | [place] [address] | | | | | | [phone] | | | | | | | | +--------+ + + + + | 05/21/ | Implant | Cardiology | Daljit Singletary, | Remote Device | 2019 | Monitor | | [facility] | Interrogation | | | | | [place], | (Primary Dx); | | | | | [place] [address] | Pacemaker; | | | | | [phone] | Sinoatrial node | | | | [...]
--- OUTSIDE RECORDS SUMMARY | ~2020-04-15 | XMS | Encounter Summary ---
Demographics + + + | Address | [address] | | | [place] [address] | + + + | Home Phone [...] Providers + +------+ + | Care Garage Worker Name | Role | Phone | [...] | | | | Sinoatrial | Geri, V GROOVE CUTTER | [address] | | | | | node | [address] | [place], | | | | | dysfunction | [place] | [place] | | | | | (HCC) | [place], [place] | [address] | | | | | Coronary | [address] | Phone: | | | | | artery | Phone: | [phone] | | | | | disease | [phone] | Fax: | | | | | involving | Fax: | [phone] | | | | | [place] | [phone] | | | | | | coronary | | | | | | | artery of | | | | | | | [place] heart | | | | | | [...] | Visit | CARDIOLOGY [address] | V GROOVE CUTTER [address] | dysfunction (HCC) | | | | [address] [place], | [place] | with symptomatic | | | | [place] [address] | [address] | bradycardia (Primary | | | | [phone] | | Dx); Coronary | | | | | | artery disease | | | | | | involving sh[place]f ira | | | | | | coronary artery of | | | | | | [place] heart without | | | | | [...] artery disease involving [place] coronary artery without angina pectoris Cannabis abuse, [...] 3rd dose, call 911 100 tablet 3 Marion-3 Fatty Acids (SALMON OIL-1000 PO) CAPS, one [...] scanned Paceart documentation and device PDF in [employer] Genome for interrogation (with progr amming changes) performed [...] ventricular arrhythmia performed by Dr. Gambino at [facility] on 01/30/2013. Patient had spontaneous [...] to go back in 3 days to [place] for an attempt of ablation under general [...] I-II of [place] Heart Association functional class. T here are [...] this chart may have been created with Gametime voice recognition software. Occasi onal wrong-word or [...] | | | | | | [place] [address] | | | | | | [phone] | | | | | | | | +--------+ + + + + | 05/01/ | Procedure | Cardiology | | | 2019 | visit | | | | +--------+ + + + + | 05/01/ | Office | Cardiology | [place], | | | 2019 | Visit | | [address] | | | | | | [place], | | | | | | [place] [address] | | | | | | [phone] | | | | | | | | +--------+ + + + + | 05/21/ | Implant | Cardiology | Sydni Singletary, | Remote Device | | 2019 | Monitor | | [address] | Interrogation | | | | | [place], | (Primary Dx); | | | | | [place] [address] | Pacemaker; | | | | | [phone] | Sinoatrial node | | | | [...] (TTE) Demographics Patient Name VICTOR HUGO | [facility] | | [place] Room Number SARAH Patient | [facility] | | [id number] Date of Study 06/16/2016 Number | - IMAGING | | Visit Number [id number] | | | Referring Physician JOSE ARMANDO GARCIA Number Date of 1960 | | | Chef & Owner LUIS FERNANDO DUARTE Age | | | 56 year(s) Interpreting | | | GURJIT TROY | | | Fish Roe Processor SYDNI SINGLETARY, | | | Gender | | | Male Nurse Procedure Type of Study TTE | | | procedure: ECHO Complete. 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 | [address] | [place], [place] | [phone] | | [facility] | | [address] | | | - IMAGING | | [...] | | 2. Coronary artery disease involving sh[place]f ira coronary artery of | | | [place] heart without angina pectoris I25.10 414.01 ECHO [...]
--- OUTSIDE RECORDS SUMMARY | ~2020-04-15 | XMS | Encounter Summary ---
Demographics + + + | Address | [address] | | | [place] [address] | + + + | Home Phone [...] Team Providers + +------+ + | Care Erp Specialist Name | Role | Phone | [...] 2019 | | GASTROENTEROLOGY | [address], [place] | | | | | [address] [place] | [address] [place], [place] | | | | | [address] [place], [place] | [address] | | | | | [address] | | | | | | [phone] | | | +--------+ + + + [...] | | | | | | [place] [address] | | | | | | [phone] | | | | | | | | +--------+ + + + + | 05/01/ | Procedure | Cardiology | | | | 2019 | visit | | | | +--------+ + + + + | 05/01/ | Office | Cardiology | [place], | | | 2019 | Visit | | [address] | | | | | | [place], | | | | | | [place] [address] | | | | | | [phone] | | | | | | | | +--------+ + + + + | 05/21/ | Implant | Cardiology | Daljit Singletary, | Remote Device | | 2019 | Monitor | | [facility] | Interrogation | | | | | [address] [place], | (Primary Dx); | | | | | [place] [address] | Pacemaker; | | | | | [phone] | Sinoatrial node | | | | | | dysfunction (HCC) | | | | | | with symptomatic | | | | | | bradycardia | +--------+ + + + + documented as of this encounter Visit Diagnoses Not on filedocumented in this encounter"
--- OUTSIDE RECORDS SUMMARY | ~2020-04-15 | XMS | Encounter Summary ---
Demographics + + + | Address | [address] | | | [place] [address] | + + + | Home Phone [...] Providers + +------+ + | Care Shipping And Receiving Specialist Name | Role | Phone | [...] CARDIOLOGY [address] | MD [address] [place] | reprogramming/check | | | | [place], | [place], | DO NOT DELETE | | | | [place] [address] | [place] [address] | (Primary Dx); | | | | [phone] | [phone] | Pacemaker - | | | | [...] | | | | | | [place] [address] | | | | | | [phone] | | | | | | | | +--------+ + + + + | 05/01/ | Procedure | Cardiology | | | | 2019 | visit | | | | +--------+ + + + + | 05/01/ | Office | Cardiology | Silvia, | | | 2019 | Visit | | [address] | | | | | | [place], | | | | | | [place] [address] | | | | | | [phone] | | | | | | | | +--------+ + + + + | 05/21/ | Implant | Cardiology | Daljit Singletary, | Remote Device | | 2019 | Monitor | | [address] [place] | Interrogation | | | | | [place], | (Primary Dx); | | | | | [place] [address] | Pacemaker; | | | | | [phone] | Sinoatrial node | | | | [...]
--- OUTSIDE RECORDS SUMMARY | ~2020-04-15 | XMS | Encounter Summary ---
Demographics + + + | Address | [address] | | | [place] [address] | + + + | Home Phone [...] Providers + +------+ + | Care Research And Development Researcher Name | Role | Phone | + +------+ + PCP | Unavailable | + +------+ + Encounter Details +--------+ + + + + | Date | Type | Department | Care Team | Description | +--------+ + + + + | 09/12/ | Hospital | [facility] | | | | 1993 | Encounter | MED [facility] EMER[facility]Y | | | | | | CENTER [address] | | | | | | [place] | | | | | | [address] | | | | | | [phone] | | | +--------+ + + + [...] | | | | | | [place] [address] | | | | | | [phone] | | | | | | | | +--------+ + + + + | 05/01/ | Procedure | Cardiology | | | | 2019 | visit | | | | +--------+ + + + + | 05/01/ | Office | Cardiology | Silvia, | | | 2019 | Visit | | PARISA Vernon [address] | | | | | | [place], | | | | | | [place] [address] | | | | | | [phone] | | | | | | | | +--------+ + + + + | 05/21/ | Implant | Cardiology | Daljit Singletary, | Remote Device | 2019 | Monitor | | [address] [place] | Interrogation | | | | | [place], | (Primary Dx); | | | | | [place] [address] | Pacemaker; | | | | | [phone] | Sinoatrial node | | | | | | dysfunction (HCC) | | | | | | with symptomatic | | | | | | bradycardia | +--------+ + + + + documented as of this encounter Visit Diagnoses Not on filedocumented in this encounter"
--- OUTSIDE RECORDS SUMMARY | ~2020-04-15 | XMS | Encounter Summary ---
Demographics + + + | Address | [address] | | | [place] [address] | + + + | Home Phone [...] Providers + +------+ + | Care Fishing Vessel Deckhand Name | Role | Phone | + [...] | | | CENTER [address] | [place], [place] | insufficiency | | | | [place], [place] | [address] | | | | | [address] | | | | | | [phone] | | | +--------+ + + + [...] sent through Care Everywhere.PERIPHERAL KENYETTA A, BILATERAL (LATVIAN)documented in this encounter Medications at Time of [...] + + + +---------+ + + | Combined [place]-3 Fatty | CAPS, one capsule by | [...] | | | | | | | #[id number], exp 07/2016 | | | | | [...] | | | | | | [place] [address] | | | | | | [phone] | | | | | | | | +--------+ + + + + | 05/01/ | Procedure | Cardiology | | | | 2019 | visit | | | | +--------+ + + + + | 05/01/ | Office | Cardiology | Silvia, | | | 2019 | Visit | | PARISA Vernon [address] | | | | | | [place], | | | | | | [place] [address] | | | | | | [phone] | | | | | | | | +--------+ + + + + | 05/21/ | Implant | Cardiology | Daljit Singletary, | Remote Device | | 2019 | Monitor | | [address] [place] [address] [place] | Interrogation | | | | | [place], | (Primary Dx); | | | | | [place] [address] | Pacemaker; | | | | | [phone] | Sinoatrial node | | | | [...]
--- OUTSIDE RECORDS SUMMARY | ~2020-04-15 | XMS | Encounter Summary ---
Demographics + + + | Address | [address] [place] [address] [address] | | | [place] [address] | + + + | Home Phone [...] [place] | | | | | [address] | | + + + + + Care Team Providers + +------+ + | Care Coal Equipment Operator Name | Role | Phone [...] | | | | | Unintentiona | [address] | | | | | | l weight | Ave | | | | | | loss | [facility] [place] | | | | | | Abdominal | [address] | | | | | | cramping | Phone: | | | | | | Chronic | [phone] | | | | | | diarrhea | Fax: | | | | | | Rectal | [phone] | | | | | | bleeding [...] | Center at [facility] [address] | [address] | | | | | [address] | [place], [place] | | | | | Mailcode: Felt | [address] | | | | | for Health and | [phone] | | | | | [facility], [address] | | | | | | [place], [place] | | | | | | [address] | | | | | | [phone] | | | +--------+ + + + [...]
--- OUTSIDE RECORDS SUMMARY | ~2020-04-15 | XMS | Encounter Summary ---
Demographics + + + | Address | [address] | | | [place] [address] | + + + | Home Phone [...] Providers + +------+ + | Care Quality Assurance Lead Name | Role | Phone | [...] + | 01/02/ | Telephone | [facility] | Daljit Singletary, | Other (chest pain) | | 2018 | | CARDIOLOGY [address] | MD [address] [place] | | | | | [place], | [place], | | | | | [place] [address] | [place] [address] | | | | | [phone] | [phone] | | | | | | | [...] | | | | | | [place] [address] | | | | | | [phone] | | | | | | | | +--------+ + + + + | 05/01/ | Procedure | Cardiology | | | | 2019 | visit | | | | +--------+ + + + + | 05/01/ | Office | Cardiology | Silvia, | | | 2019 | Visit | | [address]ISA [address] | | | | | | [place], | | | | | | [place] [address] | | | | | | [phone] | | | | | | | | +--------+ + + + + | 05/21/ | Implant | Cardiology | Daljit Singletary, | Remote Device | | 2019 | Monitor | | MD [address]iqu[address] | Interrogation | | | | | [address] [place], | (Primary Dx); | | | | | [place] [address] | Pacemaker; | | | | | [phone] | Sinoatrial node | | | | | | dysfunction ([facility]) | | | | | | with symptomatic | | | | | | bradycardia | +--------+ + + + + documented as of this encounter Visit Diagnoses Not on filedocumented in this encounter"
--- OUTSIDE RECORDS SUMMARY | ~2020-04-15 | XMS | Encounter Summary ---
Demographics + + + | Address | [address] | | | [place] [address] | + + + | Home Phone [...] Team Providers + +------+ + | Care Protection Mgr Name | Role | Phone | [...] | 2018 | Changes | GASTROENTEROLOGY | Cardiothoracic Anesthesia Technician | | | | | [address] [facility] | | | | | | [address] [place] | | | | | | [address] | | | | | | [phone] | | | +--------+ + + + [...] W | | | | | | [place], | | | | | | [place] [address] | | | | | | [phone] | | | | | | | | +--------+ + + + + | 05/01/ | Procedure | Cardiology | | | | 2019 | visit | | | | +--------+ + + + + | 05/01/ | Office | Cardiology | Silvia, | | | 2019 | Visit | | [place] [address] | | | | | | [place], | | | | | | [place] [address] | | | | | | [phone] | | | | | | | | +--------+ + + + + | 05/21/ | Implant | Cardiology | Daljit Singletary, | Remote Device | | 2020 | Monitor | | [address] [facility] | Interrogation | | | | | [place], | (Primary Dx); | | | | | [place] [address] | Pacemaker; | | | | | [phone] | Sinoatrial node | | | | | | dysfunction (HCC) | | | | | | with symptomatic | | | | | | bradycardia | +--------+ + + + + documented as of this encounter Visit Diagnoses Not on filedocumented in this encounter"
--- OUTSIDE RECORDS SUMMARY | ~2020-04-15 | XMS | Encounter Summary ---
Demographics + + + | Address | [address] | | | [place] [address] | + + + | Home Phone [...] Providers + +------+ + | Care Claim Trainee Name | Role | Phone | [...] + + | 02/21/ | Office | [facility] | [place], | Coronary artery | | 2019 | Visit | CARDIOLOGY [address] | [place] [address] | disease involving | | | | [place], | [place], | qawalangin coronary | | | | [place] [address] | [place] [address] | artery of qawalangin | | | | [phone] | [phone] | heart without angina | | | [...] of non-critical coronary artery d isease involving qawalangin coronary artery of qawalangin heart without angina pectoris, essential h ypertension, [...] stay active. He enjoys hunting in his [employer] [place] sher[place]. He has not had any [...] Preventative health care Coronary artery disease involving qawalangin coronary artery of qawalangin heart without angina pectoris Cannabis abuse, daily [...] 3RD DOSE, CALL 911 100 tablet 3 [place]-3 Fatty Acids (SALMON OIL-1000 PO) CAPS, one [...] was found Confirmed by ANGELA MARADIAGA MD ([id number]) on 01/03/2019 8:10:39 PM LAB RESULTS reviewed [...] ASSESSMENT: 1. Non-critical Coronary artery disease involving qawalangin coronary artery of qawalangin heart [facility] angina pectoris: A.Normal exercise sestamibi stress [...] ablation for ventricular arrhythmia performed by Dr Jua nDiego Gambino at [facility] on 01/30/2013.Patient had spontaneous PVC's fro [...] of [facility]ync[facility] thought to have [facility]ovagal [facility]. B. [...] this chart may have been created with [employer] voice recognition software. Occasi onal wrong-word [...] W | | | | | | [place], | | | | | | [place] [address] | | | | | | [phone] | | | | | | | | +--------+ + + + + | 05/01/ | Procedure | Cardiology | | | | 2019 | visit | | | | +--------+ + + + + | 05/01/ | Office | Cardiology | [place]via, | | | 2019 | Visit | | [place] [address] | | | | | | [place], | | | | | | [place] [address] | | | | | | [phone] | | | | | | | | +--------+ + + + + | 05/21/ | Implant | Cardiology | Daljit Singletary, | Remote Device | | 2019 | Monitor | | [address] [facility] | Interrogation | | | | | [place], | (Primary Dx); | | | | | [place] [address] | Pacemaker; | | | | | [phone] | Sinoatrial node | | | | | | dysfunction (HCC) | | | | | | with symptomatic | | | | | | bradycardia | +--------+ + + + + documented as of this encounter Visit Diagnoses + + | Diagnosis | + + | Coronary artery disease involving qawalangin coronary artery of qawalangin heart without | | angina pectoris - Primary | + + | Symptomatic PVCs Other premature beats | + + | Essential hypertension Unspecified essential hypertension | + + documented in this encounter
--- OUTSIDE RECORDS SUMMARY | ~2020-04-15 | XMS | Encounter Summary ---
Demographics + + + | Address | [address] | | | [place] [address] | + + + | Home Phone [...] Team Providers + +------+ + | Care Malware Analyst Name | Role | Phone | [...] [place] | | | | | | [address] | | | | | | [phone] | | | +--------+ + + + [...] | | | | | | [place] [address] | | | | | | [phone] | | | | | | | [...] | | | | | | [place] [address] | | | | | | [phone] | | | | | | | | +--------+ + + + + | 05/21/ | Implant | Cardiology | Daljit Singletary, | Remote Device | | 2019 | Monitor | | [address] [facility] | Interrogation | | | | | [place] [place], | (Primary Dx); | | | | | [place] [address] | Pacemaker; | | | | | [phone] | Sinoatrial node | | | | | | dysfunction (HCC) | | | | | | with symptomatic | | | | | | bradycardia | +--------+ + + + + documented as of this encounter Visit Diagnoses Not on filedocumented in this encounter"
--- OUTSIDE RECORDS SUMMARY | ~2020-04-15 | XMS | Encounter Summary ---
Demographics + + + | Address | [address] | | | [place] [address] | + + + | Home Phone [...] Team Providers + +------+ + | Care Banking Paralegal Name | Role | Phone | + +------+ + | Kirk French MD | PCP | | + +------+ + Encounter Details +--------+ + + + + | Date | Type | Department | Care Team | Description | +--------+ + + + + | 10/25/ | Hospital | [facility] | Kirk French | Chronic pain | | 2017 | Encounter | MED CTR ULTRASOUND | MD Brea Eva LORA | disorder; Stomach | | | | [address] [place] | [address] | ache; Obesity, | | | | [place], [place] | [place] [address] | unspecified | | | | [address] | [phone] | classification, | | | | [phone] | | unspecified obesity | | | [...] + + + +---------+ + + | [place]-3 Fatty | CAPS, one capsule by [...] | | | | | | [place] [address] | | | | | | [phone] | | | | | | | | +--------+ + + + + | 05/01/ | Procedure | Cardiology | | | | 2019 | visit | | | | +--------+ + + + + | 05/01/ | Office | Cardiology | Silvia, | | | 2019 | Visit | | PARISA Vernon [address] | | | | | | [place], | | | | | | [place] [address] | | | | | | [phone] | | | | | | | | +--------+ + + + + | 05/21/ | Implant | Cardiology | Daljit Singletary, | Remote Device | | 2019 | Monitor | | MD [facility] | Interrogation | | | | | [place], | (Primary Dx); | | | | | [place] [address] | Pacemaker; | | | | | [phone] | Sinoatrial node | | | | [...]
--- OUTSIDE RECORDS SUMMARY | ~2020-04-15 | XMS | Encounter Summary ---
Demographics + + + | Address | [address] | | | [place] [address] | + + + | Home Phone [...] Team Providers + +------+ + | Care Gis Geographer Name | Role | Phone | [...] | CARDIOLOGY [address] | [address] [place] | Interrogation | | | | [place], | [place], | (Primary Dx); | | | | [place] [address] | [place] [address] | Presence of | | | | [phone] | [phone] | permanent cardiac | | | | [...] | | | | | | [place] [address] | | | | | | [phone] | | | | | | | | +--------+ + + + + | 05/01/ | Procedure | Cardiology | | | | 2019 | visit | | | | +--------+ + + + + | 05/01/ | Office | Cardiology | Silvia, | | | 2019 | Visit | | PARISA Vernon [address] | | | | | | [place], | | | | | | [place] [address] | | | | | | [phone] | | | | | | | | +--------+ + + + + | 05/21/ | Implant | Cardiology | Daljit Singletary, | Remote Device | 2019 | Monitor | | [facility] | Interrogation | | | | | [place], | (Primary Dx); | | | | | [place] [address] | Pacemaker; | | | | | [phone] | Sinoatrial node | | | | [...]
--- OUTSIDE RECORDS SUMMARY | ~2020-04-15 | XMS | Encounter Summary ---
Demographics + + + | Address | [address] | | | [place] [address] | + + + | Home Phone [...] + +------+ + | Care Home Health Aide Name | Role | Phone | + +------+ + PCP | Unavailable | + +------+ + Encounter Details +--------+ + + + + | Date | Type | Department | Care Team | Description | +--------+ + + + + | 01/27/ | [facility] | [facility] | Jonathan, | | | 2008 | Encounter | MED CTR EMERGENCY | Martell Cr MD [address] | | | | | CENTER [address] | [place] | | | | | [place] | [place] [address] | | | | | [address] | [phone] | | | | | [phone] | | | +--------+ + + + [...] W | | | | | | [place], | | | | | | [place] [address] | | | | | | [phone] | | | | | | | | +--------+ + + + + | 05/01/ | Procedure | Cardiology | | | | 2019 | visit | | | | +--------+ + + + + | 05/01/ | Office | Cardiology | Silvia | | | 2019 | Visit | | PARISA Vernon [address] | | | | | | [place], | | | | | | [place] [address] | | | | | | [phone] | | | | | | | | +--------+ + + + + | 05/21/ | Implant | Cardiology | Daljit Singletary, | Remote Device | 2019 | Monitor | | MD [address] [place] | Interrogation | | | | | [place], | (Primary Dx); | | | | | [place] [address] | Pacemaker; | | | | | [phone] | Sinoatrial node | | | | | | dysfunction (HCC) | | | | | | with symptomatic | | | | | | bradycardia | +--------+ + + + + documented as of this encounter Visit Diagnoses Not on filedocumented in this encounter"
--- OUTSIDE RECORDS SUMMARY | ~2020-04-15 | XMS | Encounter Summary ---
Demographics + + + | Address | [address] | | | [place] [address] | + + + | Home Phone [...] Team Providers + +------+ + | Care Lcsw Name | Role | Phone | + [...] 2014 | | CARDIOLOGY [address] | HOOK AND EYE MACHINE OPERATOR [address] | edema and chest | | | | [place], | [facility] [place] | pain) | | | | [place] [address] | [address] | | | | | [phone] | | | +--------+ + + + [...] | | | 2019 | | | APRISA [address] | | | | | | [place], | | | | | | [place] [address] | | | | | | [phone] | | | | | | | | +--------+ + + + + | 05/01/ | Procedure | Cardiology | | | | 2019 | visit | | | | +--------+ + + + + | 05/01/ | Office | Cardiology | Silvia, | | | 2019 | Visit | | PARISA [place] W | | | | | | [place], | | | | | | [place] [address] | | | | | | [phone] | | | | | | | | +--------+ + + + + | 05/21/ | Implant | Cardiology | Daljit Singletary, | Remote Device | | 2019 | Monitor | | MD [place]iquis [place]ro | Interrogation | | | | | [place], | (Primary Dx); | | | | | [place] [address] | Pacemaker; | | | | | [phone] | Sinoatrial node | | | | | | dysfunction (HCC) | | | | | | with symptomatic | | | | | | bradycardia | +--------+ + + + + documented as of this encounter Visit Diagnoses Not on filedocumented in this encounter"
--- OUTSIDE RECORDS SUMMARY | ~2020-04-15 | XMS | Encounter Summary ---
Demographics + + + | Address | [address] | | | [place] [address] | + + + | Home Phone [...] | | | | CENTER [address] | [place], [place] | | | | | [place] | [address] | | | | | [address] | | | | | | [phone] | | | +--------+ + + + [...] new doc you can try over at [facility] documented in this encounter Medications [...] + + + +---------+ + + | [place]-3 Fatty | CAPS, one capsule by | [...] W | | | | | | [place], | | | | | | [place] [address] | | | | | | [phone] | | | | | | | | +--------+ + + + + | 05/01/ | Procedure | Cardiology | | | | 2019 | visit | | | | +--------+ + + + + | 05/01/ | Office | Cardiology | Silvia, | | | 2019 | Visit | | PARISA Vernon W | | | | | | [place], | | | | | | [place] [address] | | | | | | [phone] | | | | | | | | +--------+ + + + + | 05/21/ | Implant | Cardiology | Daljit Singletary, | Remote Device | 2019 | Monitor | | MD [address] [place] | Interrogation | | | | | [place], | (Primary Dx); | | | | | [place] [address] | Pacemaker; | | | | | [phone] | Sinoatrial node | | | | [...]
--- OUTSIDE RECORDS SUMMARY | ~2020-04-15 | XMS | Encounter Summary ---
Demographics + + + | Address | [address] | | | [place] [address] | + + + | Home Phone [...] Team Providers + +------+ + | Care Audit Machine Operator Name | Role | Phone | + +------+ + PCP | Unavailable | + +------+ + Encounter Details +--------+ + + + + | Date | Type | Department | Care Team | Description | +--------+ + + + + | 01/17/ | [facility] | [facility] | Jonas Ramos, | | | 2009 | Encounter | MED CTR EMERGENCY | MD [address] | | | | | CENTER [address] | [facility] [place] | | | | | [place] | [place] [address] | | | | | [address] | [phone] | | | | | [phone] | | | +--------+ + + + [...] | | | | | | [place], | | | | | | [place] [address] | | | | | | [phone] | | | | | | | | +--------+ + + + + | 05/01/ | Procedure | Cardiology | | | | 2019 | visit | | | | +--------+ + + + + | 05/01/ | Office | Cardiology | Silvia, | | | 2019 | Visit | | PARISA Vernon [address] | | | | | | [place], | | | | | | [place] [address] | | | | | | [phone] | | | | | | | | +--------+ + + + + | 05/21/ | Implant | Cardiology | Daljit Singletary, | Remote Device | | 2019 | Monitor | | MD [address] [place] | Interrogation | | | | | [place], | (Primary Dx); | | | | | [place] [address] | Pacemaker; | | | | | [phone] | Sinoatrial node | | | | | | dysfunction (HCC) | | | | | | with symptomatic | | | | | | bradycardia | +--------+ + + + + documented as of this encounter Visit Diagnoses Not on filedocumented in this encounter"
--- OUTSIDE RECORDS SUMMARY | ~2020-04-15 | XMS | Encounter Summary ---
Demographics + + + | Address | [address] | | | [place] [address] | + + + | Home Phone [...] Providers + +------+ + | Care Polymerization Kettle Operator Name | Role | Phone | [...] + + | 06/26/ | [facility] | [facility] | Geri Angel, | Coronary artery | | 2015 | Visit | CARDIOLOGY [address] | SHOTWELD OPERATOR [address] [place] | disease involving | | | | [place], | [facility], [place] | [place] coronary | | | | [place] [address] | [address] | artery without | | | | [phone] | | angina pectoris | | | [...] as of this encounter Progress Notes Geri Agnel ARNP - 06/26/2015 12:36 PM PDTFormatting of [...] not occur with exertion. He went to [facility] at the end of for [...] it. He is planning to travel to [facility] in the ve ry near future for up to a month due to his [id number] having a significant stroke there MEDICAL, SURGICAL, [...] Preventative health care Coronary artery disease involving [place] coronary artery without angina pectoris Cannabis abuse, [...] by mouth Daily. 30 tabl et 6 [facility] Natural Products (OSTEO BI-FLEX/5-LOXIN ADVANCED PO) Take [...] 3rd dose, call 911 25 tablet 11 [place]-3 Fatty Acids (SALMON OIL-1000 PO) CAPS, one capsule by mouth daily twice daily ONE TOUCH DELICA LANCETS [facility] Check glucose as needed for hypoglycemia 100 [...] Daily. 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 Leads: Right atrium and right ventricle (dual [...] to go back in 3 days to [place] for an attempt of ablation under general [...] this chart may have been created with NetTalon voice recognition software. Occasi onal wrong-word or [...] | | | | | | [place], | | | | | | [place] [address] | | | | | | [phone] | | | | | | | | +--------+ + + + + | 05/01/ | Procedure | Cardiology | | | | 2019 | visit | | | | +--------+ + + + + | 05/01/ | Office | Cardiology | [place], | | | 2019 | Visit | | [address]ISA [address] | | | | | | [place], | | | | | | [place] [address] | | | | | | [phone] | | | | | | | | +--------+ + + + + | 05/21/ | Implant | Cardiology | Daljit Singletary, | Remote Device | | 2020 | Monitor | | [facility] | Interrogation | | | | | 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 Leads: Right atrium and right | | [...] Coronary artery disease involving [place] coronary artery without angina pectoris - | | Primary | + + | SINUS BRADYCARDIA Sinoatrial node dysfunction | + + | Essential hypertension Unspecified essential hypertension | + + | Hyperlipidemia Other and unspecified hyperlipidemia | + + | Symptomatic PVCs Other premature beats | + + documented in this encounter
--- OUTSIDE RECORDS SUMMARY | ~2020-04-15 | XMS | Encounter Summary ---
Demographics + + + | Address | [address] | | | [place] [address] | + + + | Home Phone [...] Team Providers + +------+ + | Care Lithopone Mill Worker Name | Role | Phone | + +------+ + PCP | Unavailable | + +------+ + Encounter Details +--------+ + + + + | Date | Type | Department | Care Team | Description | +--------+ + + + + | 01/31/ | Hospital | [facility] | | | | 2008 | Encounter | MED CTR EMERGENCY | | | | | | [place] [address] | | | | | | [place] | | | | | | [address] | | | | | | [phone] | | | +--------+ + + + [...] | | | | | | [place] [address] | | | | | | [phone] | | | | | | | | +--------+ + + + + | 05/01/ | Procedure | Cardiology | | | | 2019 | visit | | | | +--------+ + + + + | 05/01/ | Office | Cardiology | Silvia, | | | 2019 | Visit | | [address] | | | | | | [place], | | | | | | [place] [address] | | | | | | [phone] | | | | | | | | +--------+ + + + + | 05/21/ | Implant | Cardiology | Daljit Singletary, | Remote Device | 2019 | Monitor | | [address] | Interrogation | | | | | [place], | (Primary Dx); | | | | | [place] [address] | Pacemaker; | | | | | [phone] | Sinoatrial node | | | | | | dysfunction (HCC) | | | | | | with symptomatic | | | | | | bradycardia | +--------+ + + + + documented as of this encounter Visit Diagnoses Not on filedocumented in this encounter"
--- OUTSIDE RECORDS SUMMARY | ~2020-04-15 | XMS | Encounter Summary ---
Demographics + + + | Address | [address] [place] [address] [address] | | | [place] [address] | + + + | Home Phone [...] [place] | | | | | [address] | | + + + + + Care Team Providers + +------+ + | Care Airline Radio Operator Name | Role | Phone | [...] | | | [address] | [facility] [place] | | | | | Mailcode: [place] | [address] | | | | | for Health and | [phone] | | | | | [facility] | | | | | | [place], [place] | | | | | | [address] | | | | | | [phone] | | | +--------+ + + + [...]
--- OUTSIDE RECORDS SUMMARY | ~2020-04-15 | XMS | Encounter Summary ---
Demographics + + + | Address | [address] | | | [place] [address] | + + + | Home Phone [...] Team Providers + +------+ + | Care Hoop Expander Name | Role | Phone | + [...] [address] | | | | | [place], | [place], | | | | | [place] [address] | [place] [address] | | | | | [phone] | [phone] | | | | | | | [...] | | | | | | [place] [address] | | | | | | [phone] | | | | | | | | +--------+ + + + + | 05/01/ | Procedure | Cardiology | | | | 2019 | visit | | | | +--------+ + + + + | 05/01/ | Office | Cardiology | [place]via, | | | 2019 | Visit | | PARISA Vernon [address] | | | | | | [place], | | | | | | [place] [address] | | | | | | [phone] | | | | | | | | +--------+ + + + + | 05/21/ | Implant | Cardiology | Daljit Singletary, | Remote Device | 2019 | Monitor | | [address] [place] | Interrogation | | | | | [place], | (Primary Dx); | | | | | [place] [address] | Pacemaker; | | | | | [phone] | Sinoatrial node | | | | [...] | [address] | [place] | | | [facility] | | [address] | | | - LABORATORY | [...] | | | LAB | | | [place]ian, | | | | | | External [...] | [address] | [place] | | | [facility] | | [address] | | | - LABORATORY | [...]
--- OUTSIDE RECORDS SUMMARY | ~2020-04-15 | XMS | Encounter Summary ---
Demographics + + + | Address | [address] | | | [place] [address] | + + + | Home Phone [...] Team Providers + +------+ + | Care Transplant Nurse Name | Role | Phone | + +------+ + PCP | Unavailable | + +------+ + Encounter Details +--------+ + + + + | Date | Type | Department | Care Team | Description | +--------+ + + + + | 10/26/ | Hospital | [facility] | | | | 1994 | Encounter | MED CTR EMERGENCY | | | | | | CENTER [address] | | | | | | [place] | | | | | | [address] | | | | | | [phone] | | | +--------+ + + + [...] | | | | | | [place] [address] | | | | | | [phone] | | | | | | | | +--------+ + + + + | 05/01/ | Procedure | Cardiology | | | | 2019 | visit | | | | +--------+ + + + + | 05/01/ | Office | Cardiology | Silvia, | | | 2019 | Visit | | PARISA [address] | | | | | | [place], | | | | | | [place] [address] | | | | | | [phone] | | | | | | | | +--------+ + + + + | 05/21/ | Implant | Cardiology | Daljit Singletary, | Remote Device | 2019 | Monitor | | [address] [place] | Interrogation | | | | | [place], | (Primary Dx); | | | | | [place] [address] | Pacemaker; | | | | | [phone] | Sinoatrial node | | | | | | dysfunction (HCC) | | | | | | with symptomatic | | | | | | bradycardia | +--------+ + + + + documented as of this encounter Visit Diagnoses Not on filedocumented in this encounter"
--- OUTSIDE RECORDS SUMMARY | ~2020-04-15 | XMS | Encounter Summary ---
Demographics + + + | Address | [address] | | | [place] [address] | + + + | Home Phone [...] Team Providers + +------+ + | Care Plexiglas Former Name | Role | Phone | + +------+ + | Michael Amanda DO | PCP | | + +------+ + Encounter Details +--------+ + + + + | Date | Type | Department | Care Team | Description | +--------+ + + + + | 11/03/ | Emergency | [facility] | Eliel Calzada, | Palpitations; | | 2013 - | | [facility]ENTER | MD Chiquis JOHNSON | Atypical chest pain | | | | EMERGENCY CENTER | [facility] ID | | | 11/04/ | | [address] | [address] | | | 2013 | | [place], [place] | | | | | | [address] | | | | | | [phone] | | | +--------+ + + + [...] + + + +---------+ + + | Ekron-3 Fatty | CAPS, one capsule by | [...] | | | | | | [place] [id number] | | | | | | [phone] | | | | | | | [...] | | | | | | [place] [id number] | | | | | | [phone] | | | | | | | | +--------+ + + + + | 05/21/ | Implant | Cardiology | Daljit Singletary, | Remote Device | | 2019 | Monitor | | [address] | Interrogation | | | | | [place], | (Primary Dx); | | | | | [place] [address] | Pacemaker; | | | | | [phone] | Sinoatrial node | | | | [...] CHEST 2 VIEW FRONTAL | | AND XMIGYAT6411/03/2014 11:56 PM History: 54 years. Male. Acute [...] EXTERNAL | | | | performed at [facility];888 | | LAB | | | | [address];[place] | | | | | | [address] | | | | + + + + + -+ | Red Blood | 4.97Comment: Testing | 4.20 - 5.70 | EXTERNAL | | | Cells | performed at [facility];888 | M/uL | LAB | | | Counted | [address];[place] | | | | | | [address] | | | | + + + + + -+ | Hemoglobin | 16.8Comment: Testing | 13.2 - 17.0 | EXTERNAL | | | | performed at [facility];888 | g/dL | LAB | | | | [address];[place] | | | | | | [address] | | | | + + + + + -+ | Hematocrit, | 48.2Comment: Testing | 39.0 - 50.0 % | EXTERNAL | | | POC | performed at [facility];888 | | LAB | | | | [address];[place] | | | | | | [address] | | | | + + + + + -+ | MCV | 97.1Comment: Testing | 80.0 - 100.0 fl | EXTERNAL | | | | performed at [facility];888 | | LAB | | | | [address];[place] | | | | | | [address] | | | | + + + + + -+ | MCH | 33.9Comment: Testing | 27.0 - 34.0 pg | EXTERNAL | | | | performed at [facility];888 | | LAB | | | | [address];[place] | | | | | | [address] | | | | + + + + + -+ | MCHC | 34.9Comment: Testing | 32.0 - 35.5 | EXTERNAL | | | | performed at [facility];888 | g/dL | LAB | | | | [address];[place] | | | | | | [address] | | | | + + + + + -+ | RDW-CV | 42.4Comment: Testing | 37 - 53 fl | EXTERNAL | | | | performed at [facility];888 | | LAB | | | | [address];[place] | | | | | | [address] | | | | + + + + + -+ | Platelet | 143 (L)Comment: Testing | 150 - 400 K/uL | EXTERNAL | | | Count | performed at [facility];888 | | LAB | | | Plasma | [address];[place] | | | | | | [address] | | | | + + + + + -+ | MPV | 9.0Comment: Testing | fl | EXTERNAL | | | | performed at [facility];888 | | LAB | | | | [address];[place] | | | | | | [address] | | | | + + + + + -+ | Differentia | AUTOMATEDComment: | | EXTERNAL | | | l Type | Testing performed at | | LAB | | | | [facility];[address] | | | | | [address];[place] [address] | | | | + + + + + -+ | % Segmented | 61.6Comment: Testing | % | EXTERNAL | | | | performed at [facility];888 | | LAB | | | Neutrophils | [address];[place] | | | | | | [address] | | | | + + + + + -+ | % | 27.8Comment: Testing | % | EXTERNAL | | | Lymphocytes | performed at [facility];888 | | LAB | | | | [address];[place] | | | | | | [address] | | | | + + + + + -+ | % Monocytes | 8.7Comment: Testing | % | EXTERNAL | | | | performed at [facility];888 | | LAB | | | | [address];[place] | | | | | | [address] | | | | + + + + + -+ | % | 0.8Comment: Testing | % | EXTERNAL | | | Eosinophils | performed at [facility];888 | | LAB | | | | [address];[place] | | | | | | [address] | | | | + + + + + -+ | % Basophils | 1.1Comment: Testing | % | EXTERNAL | | | | performed at [facility];888 | | LAB | | | | [address];[place] | | | | | | [address] | | | | + + + + + -+ | Absolute | 5.4Comment: Testing | 1.9 - 7.4 K/uL | EXTERNAL | | | Segmented | performed at [facility];888 | | LAB | | | Neutrophils | [address];[place] | | | | | | [address] | | | | + + + + + -+ | Absolute | 2.4Comment: Testing | 1.0 - 3.9 K/uL | EXTERNAL | | | Lymphocytes | performed at [facility];888 | | LAB | | | | [address];[place] | | | | | | [address] | | | | + + + + + -+ | Absolute | 0.8Comment: Testing | 0 - 0.8 K/uL | EXTERNAL | | | Monocytes | performed at [facility];888 | | LAB | | | | [address];[place] | | | | | | [address] | | | | + + + + + -+ | Absolute | 0.1Comment: Testing | 0 - 0.5 K/uL | EXTERNAL | | | Eosinophils | performed at [facility];888 | | LAB | | | | [address];[place] | | | | | | [address] | | | | + + + + + -+ | Absolute | 0.1Comment: Testing | 0 - 0.1 K/uL | EXTERNAL | | | Basophils | performed at [facility];888 | | LAB | | | | [address];[place] | | | | | | [address] | | | | + + + + + -+ | RBC | SLIDE SCANNED, AGREES | | EXTERNAL | | | Morphology | WITH AUTOMATED | | LAB | | | | RESULTS.Comment: Testing | | | | | | performed at [facility];[address] | | | | | | [address];[place] | | | | | | [address] | | | | + + + + + -+ | Na | 140Comment: Testing | 135 - 143 | EXTERNAL | | | | performed at [facility];888 | mmol/L | LAB | | | | [address];[place] | | | | | | [address] | | | | + + + + + -+ | K | 3.9Comment: Testing | 3.5 - 4.9 | EXTERNAL | | | | performed at [facility];888 | mmol/L | LAB | | | | [address];[place] | | | | | | [address] | | | | + + + + + -+ | Cl | 107Comment: Testing | 99 - 109 mmol/L | EXTERNAL | | | | performed at [facility];888 | | LAB | | | | [address];[place] | | | | | | [address] | | | | + + + + + -+ | CO2 | 28Comment: Testing | 23 - 32 mmol/L | EXTERNAL | | | | performed at [facility];888 | | LAB | | | | [address];[place] | | | | | | [address] | | | | + + + + + -+ | Anion Gap | 9Comment: Testing | 5 - 20 mmol/L | EXTERNAL | | | | performed at [facility];888 | | LAB | | | | [address];[place] | | | | | | [address] | | | | + + + + + -+ | Glucose, | 97Comment: Testing | 65 - 99 mg/dL | EXTERNAL | | | Fasting | performed at [facility];888 | | LAB | | | | [address];[place] | | | | | | [address] | | | | + + + + + -+ | BUN | 14Comment: Testing | 8 - 25 mg/dL | EXTERNAL | | | | performed at [facility];888 | | LAB | | | | [address];[place] | | | | | | [address] | | | | + + + + + -+ | Creatinine | 0.98Comment: Testing | 0.70 - 1.30 | EXTERNAL | | | | performed at [facility];888 | mg/dL | LAB | | | | [address];[place] | | | | | | [address] | | | | + + + + + -+ | BUN/Creatin | 14Comment: Testing | | EXTERNAL | | | ine Ratio | performed at [facility];888 | | LAB | | | | [address];[place] | | | | | | [address] | | | | + + + + + -+ | Calcium | 8.8Comment: Testing | 8.5 - 10.2 | EXTERNAL | | | | performed at [facility];888 | mg/dL | LAB | | | | [address];[place] | | | | | | [address] | | | | + + + + + -+ | Protein, | 6.9Comment: Testing | 6.3 - 8.2 g/dL | EXTERNAL | | | Total | performed at [facility];888 | | LAB | | | | [address];[place] | | | | | | [address] | | | | + + + + + -+ | Albumin | 3.7Comment: Testing | 3.6 - 5.0 g/dL | EXTERNAL | | | | performed at [facility];888 | | LAB | | | | [address];[place] | | | | | | [address] | | | | + + + + + -+ | Globulin | 3.2Comment: Testing | 1.3 - 4.9 g/dL | EXTERNAL | | | | performed at [facility];888 | | LAB | | | | [address];[place] | | | | | | [address] | | | | + + + + + -+ | A/G Ratio | 1.2Comment: Testing | 1.0 - 2.4 | EXTERNAL | | | | performed at [facility];888 | | LAB | | | | [address];[place] | | | | | | [address] | | | | + + + + + -+ | Bilirubin | 0.9Comment: Testing | 0.1 - 1.5 mg/dL | EXTERNAL | | | Total | performed at [facility];888 | | LAB | | | | [address];[place] | | | | | | [address] | | | | + + + + + -+ | ALP, | 60Comment: Testing | 35 - 115 U/L | EXTERNAL | | | External | performed at [facility];888 | | LAB | | | | [address];[place] | | | | | | [address] | | | | + + + + + -+ | AST | 22Comment: Testing | 10 - 45 U/L | EXTERNAL | | | | performed at [facility];888 | | LAB | | | | [address];[place] | | | | | | [address] | | | | + + + + + -+ | ALT | 37Comment: Testing | 10 - 65 U/L | EXTERNAL | | | | performed at [facility];888 | | LAB | | | | [address];[place] | | | | | | [address] | | | | + + + [...] | | | | | | at [facility];[address] | | | | | [address];[place] [address] | | | | + + + + + -+ | CK, Total | 103Comment: Testing | 55 - 400 U/L | EXTERNAL | | | | performed at [facility];[address] | | LAB | | | | [address];[place] | | | | | | [address] | | | | + + + [...] | | | | | performed at [facility];[address] | | | | | | [address];[place] | | | | | | [address] | | | | + + + + + -+ | aPTT, | 26Comment: Testing | 23 - 32 seconds | EXTERNAL | | | Patient | performed at [facility];[address] | | LAB | | | | [address];[place] | | | | | | [address] | | | | + + + + + -+ | CK-MB | 2.9Comment: Testing | 0.5 - 3.6 ng/mL | EXTERNAL | | | | performed at [facility];[address] | | LAB | | | | [address];[place] | | | | | | [address] | | | | + + + [...] EXTERNAL | | | | performed at [facility];888 | uIU/mL | LAB | | | | [address];[place], [place] | | | | | | [address] | | | | + + + [...] EXTERNAL | | | | performed at [facility];888 | | LAB | | | | [address];[place], [place] | | | | | | [address] | | | | + + + [...] EXTERNAL | | | | performed at [facility] | | LAB | | | | [address];[place], [place] | | | | | | [address] | | | | + + + [...] | | | | | ONLY, -COMPUTER (412), | | | | | | electronic news gathering editor Michelle Butcher | | | | | | (29) on 11/04/2014 | | | | | | 6:28:13 AM | | | | + + + + + + + + | Specimen | + + | | + + + + + | Narrative | Performed At | + + + | Historically converted procedure from [facility] Epic environment | EXTERNAL LAB | + [...]
--- OUTSIDE RECORDS SUMMARY | ~2020-04-15 | XMS | Encounter Summary ---
Demographics + + + | Address | [address] | | | [place] [address] | + + + | Home Phone [...] [address] | | | | | [place], [place] | [address] | | | | | [address] | [place] [address] | | | | | [phone] | [phone] | | | | | | | [...] W | | | | | | [place], | | | | | | [place] [address] | | | | | | [phone] | | | | | | | | +--------+ + + + + | 05/01/ | Procedure | Cardiology | | | | 2019 | visit | | | | +--------+ + + + + | 05/01/ | Office | Cardiology | Silvia, | | | 2019 | Visit | | [address] | | | | | | [place], | | | | | | [place] [address] | | | | | | [phone] | | | | | | | | +--------+ + + + + | 05/21/ | Implant | Cardiology | Daljit Singletary, | Remote Device | 2019 | Monitor | | MD [address] [place] | Interrogation | | | | | [place], | (Primary Dx); | | | | | [place] [address] | Pacemaker; | | | | | [phone] | Sinoatrial node | | | | [...]
--- OUTSIDE RECORDS SUMMARY | ~2020-04-15 | XMS | Encounter Summary ---
Demographics + + + | Address | [address] | | | [place] [address] | + + + | Home Phone [...] Providers + +------+ + | Care Elementary Education Tutor Name | Role | Phone | + +------+ + | Michael Amanda DO | PCP | | + +------+ + Encounter Details +--------+ + + + + | Date | Type | Department | Care Team | Description | +--------+ + + + + | 07/30/ | Abstract | [facility] | Michael Amanda, | | | 2013 | | [facility] | DO [address] | | | | | [address] | [place] | | | | | [place] | [address] | | | | | [address] | | | | | | [phone] | | | +--------+ + + + [...] | | | | | | [place] [address] | | | | | | [phone] | | | | | | | | +--------+ + + + + | 05/01/ | Procedure | Cardiology | | | | 2019 | visit | | | | +--------+ + + + + | 05/01/ | Office | Cardiology | Silvia, | | | 2019 | Visit | | PARISA [address] | | | | | | [place], | | | | | | [place] [address] | | | | | | [phone] | | | | | | | | +--------+ + + + + | 05/21/ | Implant | Cardiology | Daljit Singletary, | Remote Device | | 2019 | Monitor | | [address] | Interrogation | | | | | [place], | (Primary Dx); | | | | | [place] [address] | Pacemaker; | | | | | [phone] | Sinoatrial node | | | | [...] [address] | [place] | [phone] | | [facility] | | [address] | | | - LABORATORY | | | | + + + + + | [address] | [address] | [place] | | | [facility] | | [address] | | | - LABORATORY [...] | | | | | | | Serbian, | | | | | | External [...]
--- OUTSIDE RECORDS SUMMARY | ~2020-04-15 | XMS | Encounter Summary ---
Demographics + + + | Address | [address] | | | [place] [address] | + + + | Home Phone [...] Providers + +------+ + | Care Student Worker Name | Role | Phone | + +------+ + PCP | Unavailable | + +------+ + Encounter Details +--------+ + + + + | Date | Type | Department | Care Team | Description | +--------+ + + + + | 04/28/ | [facility] | [facility] | Jonathan, | | | 2008 | Encounter | MED CTR EMERGENCY | Martell Cr MD [address] | | | | | CENTER [address] | [place] | | | | | [place] | [place] [address] | | | | | [address] | [phone] | | | | | [phone] | | | +--------+ + + + [...] W | | | | | | [place], | | | | | | [place] [address] | | | | | | [phone] | | | | | | | | +--------+ + + + + | 05/01/ | Procedure | Cardiology | | | | 2019 | visit | | | | +--------+ + + + + | 05/01/ | Office | Cardiology | Silvia | | | 2019 | Visit | | PARISA [address] | | | | | | [place], | | | | | | [place] [address] | | | | | | [phone] | | | | | | | | +--------+ + + + + | 05/21/ | Implant | Cardiology | Daljit Singletary, | Remote Device | 2019 | Monitor | | MD [address] [place] | Interrogation | | | | | [place], | (Primary Dx); | | | | | [place] [address] | Pacemaker; | | | | | [phone] | Sinoatrial node | | | | | | dysfunction (HCC) | | | | | | with symptomatic | | | | | | bradycardia | +--------+ + + + + documented as of this encounter Visit Diagnoses Not on filedocumented in this encounter"
--- OUTSIDE RECORDS SUMMARY | ~2020-04-15 | XMS | Encounter Summary ---
Demographics + + + | Address | [address] | | | [place] [address] | + + + | Home Phone [...] Providers + +------+ + | Care Weed Science Research Technician Name | Role | Phone [...] + + | 03/07/ | Office | [facility] | [place], | SINUS BRADYCARDIA | | 2013 | Visit | CARDIOLOGY [address] | [address] [address] | (Primary Dx); | | | | [place], | [place], | Syncope; Symptomatic | | | | [place] [address] | [place] [address] | PVCs; Pacemaker - | | | | [phone] | [phone] | Medtronic - [id number] | | | [...] Sanchez Date: March 07, 2014 : 1960 Shoe Clerk: Kailey Pruitt RN Device E M Assembler:Medtronic Sense (mV) Impedance (?) Capture (V) Capture (ms) A Lead >5.60 402 1.500 0.09 RV Lead >31.36 522 2.00 0.09 LV Lead Battery Impedance (?): 528 Battery Voltage (V): 2.79 NE Interval (ms): 147 AR Interval (ms): 217 VA Conduction: Mode Switch Events: 0 % of time: 0 -KNITTER HAND: <0.1% AP-KNITTER HAND: 0.1% -VS: 23.8% AP-VS: 76.1% KNITTER HAND: Magnetic Rate: 85 LINDA: 65 LEAH: Current [...] Pruitt RN 03/07/2014 12:00 Janeen Mccollum AR MATE CHIEF - 03/07/2014 11:07 AM PDT PATIENT NAME: [...] headaches. He paulino d been seen at [facility] a couple times with chest pain and [...] needed for Chest pain. 25 tablet 12 Paradise-3 Fatty Acids (SALMON OIL-1000 PO) CAPS, one capsule by mouth daily twice daily ONE TOUCH DELICA LANCETS [facility] Check glucose as [...] Sanchez Date: March 07, 2014 : 1960 Shoe Clerk: Kailey Pruitt RN Device E M Assembler:[employer] Sense (mV) Impedance (?) Capture (V) Capture (ms) A Lead >5.60 402 1.500 0.09 RV Lead >31.36 522 2.00 0.09 LV Lead Battery Impedance (?): 528 Battery Voltage (V): 2.79 NE Interval (ms): 147 AR Interval (ms): 217 VA Conduction: Mode Switch Events: 0 % of time: 0 -KNITTER HAND: <0.1% AP-KNITTER HAND: 0.1% -VS: 23.8% AP-VS: 76.1% KNITTER HAND: Magnetic Rate: 85 LINDA: 65 LEAH: Current [...] completely be ruled out. D. [facility] 12/25/13, shows noncritical coronary artery [...] pain. He is in class II of [place] [employer] functional class . There are [...] to go back in 3 days to [place] for an attempt of ablation under general [...] palpitations.. He is in class II of [place] [employer] functional class. There are no [...] bring in his blood pressure logs from [facility] e 5. Lightheadedness and dizziness/ [...] made to ensure accuracy; however, inadvertent computerized road supervisor errors may be pre sent. Electronically signed [...] | | | | | | [place] [address] | | | | | | [phone] | | | | | | | | +--------+ + + + + | 05/01/ | Procedure | Cardiology | | | | 2019 | visit | | | | +--------+ + + + + | 05/01/ | Office | Cardiology | Silvia, | | | 2019 | Visit | | [address] | | | | | | [place], | | | | | | [place] [address] | | | | | | [phone] | | | | | | | | +--------+ + + + + | 05/21/ | Implant | Cardiology | Daljit Singletary, | Remote Device | 2019 | Monitor | | [address] [facility] | Interrogation | | | | | [place], | (Primary Dx); | | | | | [place] [address] | Pacemaker; | | | | | [phone] | Sinoatrial node | | | | [...] 07, 2014 : | | | 1960 Shoe Clerk: Kailey Pruitt RN Device | | | E M Assembler:[employer]tronic Sense (mV) Impedance (?) Capture (V) | | | Capture (ms) A Lead >5.60 402 1.500 0.09 RV Lead >31.36 522 2.00 | | | 0.09 LV Lead Battery Impedance (?): 528 Battery Voltage (V): | | | 2.79 NE Interval (ms): 147 AR Interval (ms): 217 VA Conduction: | | | Mode Switch Events: 0 % of time: 0 -KNITTER HAND: <0.1% AP-KNITTER HAND: 0.1% -VS: | | | 23.8% AP-VS: 76.1% KNITTER HAND: Magnetic Rate: 85 LINDA: 65 LEAH: Current [...] | | Date: March 07, 2014DOB: 1960 Shoe Clerk: Kailey Pruitt RN Device | | E M Assembler:Medtronic Sense (mV) Impedance (?) Capture (V) Capture (ms) A Lead >5.60 | | 402 1.500 0.09 RV Lead >31.36 522 2.00 0.09 LV Lead Battery Impedance (?): 528 | | Battery Voltage (V): 2.79 NE Interval (ms): 147 AR Interval (ms): 217 VA Conduction: | | Mode Switch Events: 0 % of time: 0 -KNITTER HAND: <0.1% AP-KNITTER HAND: 0.1% -VS: 23.8% AP-VS: 76.1% | | KNITTER HAND: Magnetic Rate: 85 LINDA: 65 LEAH: Current [...]
--- OUTSIDE RECORDS SUMMARY | ~2020-04-15 | XMS | Encounter Summary ---
Demographics + + + | Address | [address] | | | [place] [address] | + + + | Home Phone [...] Providers + +------+ + | Care Graphic Illustrator Name | Role | Phone | + [...] [address] | | | | [place], | [place], | | | | | [place] [address] | [place] [address] | | | | | [phone] | [phone] | | | | | | | [...] | | | | | | [place] [address] | | | | | | [phone] | | | | | | | [...] | | | | | | [place] [address] | | | | | | [phone] | | | | | | | | +--------+ + + + + | 05/21/ | Implant | Cardiology | Daljit Singletary, | Remote Device | | 2019 | Monitor | | [address] [place] | Interrogation | | | | | [facility] [place], | (Primary Dx); | | | | | [place] [address] | Pacemaker; | | | | | [phone] | Sinoatrial node | | | | | | dysfunction (HCC) | | | | | | with symptomatic | | | | | | bradycardia | +--------+ + + + + documented as of this encounter Visit Diagnoses Not on filedocumented in this encounter"
--- OUTSIDE RECORDS SUMMARY | ~2020-04-15 | XMS | Encounter Summary ---
Demographics + + + | Address | [address] | | | [place] [address] | + + + | Home Phone [...] +------+ + | Care Multiple Drum Sander Name | Role | Phone [...] + | 11/05/ | Telephone | [facility] | Daljit Singletary, | Chest Pain | | 2016 | | CARDIOLOGY [address] | MD [address] [place] | | | | | [place], | [place], | | | | | [place] [address] | [place] [address] | | | | | [phone] | [phone] | | | | | | | [...] | | | | | | [place], | | | | | | [place] [address] | | | | | | [phone] | | | | | | | | +--------+ + + + + | 05/01/ | Procedure | Cardiology | | | | 2019 | visit | | | | +--------+ + + + + | 05/01/ | Office | Cardiology | Silvia, | | | 2019 | Visit | | [address]ISA [place] [address] | | | | | | [place], | | | | | | [place] [address] | | | | | | [phone] | | | | | | | | +--------+ + + + + | 05/21/ | Implant | Cardiology | Daljit Singletary, | Remote Device | | 2019 | Monitor | | [facility] | Interrogation | | | | | [place], | (Primary Dx); | | | | | [place] [address] | Pacemaker; | | | | | [phone] | Sinoatrial node | | | | | | dysfunction (HCC) | | | | | | with symptomatic | | | | | | bradycardia | +--------+ + + + + documented as of this encounter Visit Diagnoses Not on filedocumented in this encounter"
--- OUTSIDE RECORDS SUMMARY | ~2020-04-15 | XMS | Encounter Summary ---
Demographics + + + | Address | [address] | | | [place] [address] | + + + | Home Phone [...] Providers + +------+ + | Care Transfer Controller Name | Role | Phone | [...] 2015 | | CARDIOLOGY [address] | BAR EXAMINER [address] [place] | reprogramming/check | | | | [place], | St [place], [place] | DO NOT DELETE | | | | [place] [address] | [address] | (Primary Dx); | | | | [phone] | | Pacemaker - | | | [...] W | | | | | | [place], | | | | | | [place] [address] | | | | | | [phone] | | | | | | | | +--------+ + + + + | 05/01/ | Procedure | Cardiology | | | | 2019 | visit | | | | +--------+ + + + + | 05/01/ | Office | Cardiology | Silvia, | | | 2019 | Visit | | [address] [address] W | | | | | | [place], | | | | | | [place] [address] | | | | | | [phone] | | | | | | | | +--------+ + + + + | 05/21/ | Implant | Cardiology | Daljit Singletary, | Remote Device | | 2019 | Monitor | | [facility] | Interrogation | | | | | [place], | (Primary Dx); | | | | | [place] [address] | Pacemaker; | | | | | [phone] | Sinoatrial node | | | | [...] | | 2. Coronary artery disease involving [place] coronary artery of | | | [place] heart without angina pectoris I25.10 [...]
--- OUTSIDE RECORDS SUMMARY | ~2020-04-15 | XMS | Encounter Summary ---
Demographics + + + | Address | [address] | | | [place] [address] | + + + | Home Phone [...] Providers + +------+ + | Care Sewer Hand Name | Role | Phone | [...] | Refill | [facility] [place] | [place], | Medication Refill | | 2014 | | CARDIOLOGY [address] | [place] [address] | | | | | [place], | [place], | | | | | [place] [address] | [place] [address] | | | | | [phone] | [phone] | | | | | | | [...] W | | | | | | [place], | | | | | | [place] [address] | | | | | | [phone] | | | | | | | | +--------+ + + + + | 05/01/ | Procedure | Cardiology | | | | 2019 | visit | | | | +--------+ + + + + | 05/01/ | Office | Cardiology | Silvia, | | | 2019 | Visit | | [address] | | | | | | [place], | | | | | | [place] [address] | | | | | | [phone] | | | | | | | | +--------+ + + + + | 05/21/ | Implant | Cardiology | Daljit Singletary, | Remote Device | | 2019 | Monitor | | [facility] | Interrogation | | | | | [place], | (Primary Dx); | | | | | [place] [address] | Pacemaker; | | | | | [phone] | Sinoatrial node | | | | | | dysfunction (HCC) | | | | | | with symptomatic | | | | | | bradycardia | +--------+ + + + + documented as of this encounter Visit Diagnoses Not on filedocumented in this encounter"
--- OUTSIDE RECORDS SUMMARY | ~2020-04-15 | XMS | Encounter Summary ---
Demographics + + + | Address | [address] | | | [place] [address] | + + + | Home Phone [...] Team Providers + +------+ + | Care Bill Checker Name | Role | Phone | + +------+ + PCP | Unavailable | + +------+ + Encounter Details +--------+ + + + + | Date | Type | Department | Care Team | Description | +--------+ + + + + | 01/27/ | [facility] | [facility] | Jonathan, | | | 2008 | Encounter | MED CTR EMERGENCY | Martell Cr MD [address] | | | | | CENTER [address] | [place] | | | | | [place] | [place] [address] | | | | | [address] | [phone] | | | | | [phone] | | | +--------+ + + + [...] W | | | | | | [place], | | | | | | [place] [address] | | | | | | [phone] | | | | | | | | +--------+ + + + + | 05/01/ | Procedure | Cardiology | | | | 2019 | visit | | | | +--------+ + + + + | 05/01/ | Office | Cardiology | [place]via | | | 2019 | Visit | | [address] [address] | | | | | | [place], | | | | | | [place] [address] | | | | | | [phone] | | | | | | | | +--------+ + + + + | 05/21/ | Implant | Cardiology | Daljit Singletary, | Remote Device | 2019 | Monitor | | MD [address] [place] | Interrogation | | | | | [place], | (Primary Dx); | | | | | [place] [address] | Pacemaker; | | | | | [phone] | Sinoatrial node | | | | | | dysfunction (HCC) | | | | | | with symptomatic | | | | | | bradycardia | +--------+ + + + + documented as of this encounter Visit Diagnoses Not on filedocumented in this encounter"
--- OUTSIDE RECORDS SUMMARY | ~2020-04-15 | XMS | Encounter Summary ---
Demographics + + + | Address | [address] | | | [place] [address] | + + + | Home Phone [...] Author | [facility] | | | [...] Providers + +------+ + | Care Structural Engineering Drafting Officer Name | Role | Phone | [...] [place], [place] | | | | | [place] | | [address] Phone: | | | | | CYSTO/URETER | | [phone] | | | | | O | | Fax: | | | | | W/LITHOTRIPS | | [phone] | | | | | Y &INDWELL [...] + + | 04/13/ | Hospital | [facility] | Matthew Uriarte | Preoperative | | 2019 | Encounter | MED CTR OR INTRA OP | Dahl, MD [address] | clearance (Primary | | | | [address] | [address] [place] | Dx); Left ureteral | | | | [place] | [address] | calculus; Kidney | | | | [address] | | stones | | | | [phone] | | | +--------+ + + + [...] Care Everywhere.Kidney Stones, Treating: Ureteroscopic Stone Removal (Ethiopian)Stents, Ureteral (Ethiopian)documented in this encounter Medications at Time [...] + + + +---------+ + + | [place]-3 Fatty | CAPS, one capsule by [...] | | | | | | [place] [address] | | | | | | [phone] | | | | | | | | +--------+ + + + + | 05/01/ | Procedure | Cardiology | | | | 2019 | visit | | | | +--------+ + + + + | 05/01/ | Office | Cardiology | Silvia, | | | 2019 | Visit | | PARISA [place] W | | | | | | [place], | | | | | | [place] [address] | | | | | | [phone] | | | | | | | | +--------+ + + + + | 05/21/ | Implant | Cardiology | Daljit Singletary, | Remote Device | | 2019 | Monitor | | [address] | Interrogation | | | | | [place], | (Primary Dx); | | | | | [place] [address] | Pacemaker; | | | | | [phone] | Sinoatrial node | | | | [...] [facility] | | | | | | at:[phone]. | | | | + + + [...] test was developed and | | [facility] | | | | its performance | | - BKR | | | | characteristicsdetermine | | | | | | d by [facility]. It has not | | | [...] + | Performed at: 01 - Arsh Owsley [address] [facility], | REFERENCE LAB | | [place], [place] [address] Superintendent Ammunition Storage: Yeny Rios MD, Phone: | ARSH CASTANON | | [phone] | | + + + + + + + + | Performing | Address | City/State/Zipcode | Phone Number | | Organization | | | | + + + + + | REFERENCE LAB | [address] | [place], [place] | [phone] | | ARSH CASTANON | [facility] | [address] | | + + + + + [...] | | | | | | [facility] | | [...] | bulin Ratio | | | [facility] | | [...] + | [facility] | [address] | [place] | [phone] | | [facility] | | [address] | | | - LABORATORY | | [...] + | [facility] | [address] | [place] | [phone] | | [facility] | | [address] | | | - LABORATORY | | [...] + | [facility] | [address] | [place] | [phone] | | [facility] | | [address] | | | - LABORATORY | | [...] + | [facility] | [address] | [place] | [phone] | | [facility] | | [address] | | | - LABORATORY | | [...] | mL/min/1.73m2 | MICHELLE | | | [facility] | RATE,ESTIMATED | | MEDICAL | | | | mL/min/1.58b5Xosh than | | CENTER - | | [...] [address] | [place] | [phone] | | [facility] | | [address] | | | - LABORATORY | | [...] glucose < 50, | | | Starting [facility] 04/13/19 at 0634, | | | Repeat [...] | | | | | | | lbvnch-qza-czxqu use of at least | | | [...] | First dose on [facility] 04/13/19 at | | | 2030, If [...]
--- OUTSIDE RECORDS SUMMARY | ~2020-04-15 | XMS | Encounter Summary ---
Demographics + + + | Address | [address] [place] [address] [address] | | | [place] [address] | + + + | Home Phone [...] [place] | | | | | [address] | | + + + + + Care Team Providers + +------+ + | Care Bookkeeping Machine Mechanic Name | Role | Phone [...] | | | [address] | [place], [place] | | | | | Mailcode: Center | [address] | | | | | for Health and | [phone] | | | | | [facility] | | | | | | [place], [place] | | | | | | [address] | | | | | | [phone] | | | +--------+ + + + [...]
--- OUTSIDE RECORDS SUMMARY | ~2020-04-15 | XMS | Encounter Summary ---
Demographics + + + | Address | [address] | | | [place] [address] | + + + | Home Phone [...] 2012 | | CARDIOLOGY [address] | AGRICULTURE LABORATORY TECHNICIAN [address] | to be referred | | | | [place], | [place], [place] | soon) | | | | [place] [address] | [address] | | | | | [phone] | | | +--------+ + + + [...] | | | | | | [place] [address] | | | | | | [phone] | | | | | | | | +--------+ + + + + | 05/01/ | Procedure | Cardiology | | | | 2019 | visit | | | | +--------+ + + + + | 05/01/ | Office | Cardiology | Silvia, | | | 2019 | Visit | | [address] | | | | | | [place], | | | | | | [place] [address] | | | | | | [phone] | | | | | | | | +--------+ + + + + | 05/21/ | Implant | Cardiology | Daljit Singletary, | Remote Device | | 2020 | Monitor | | [facility] | Interrogation | | | | | [place] [place], | (Primary Dx); | | | | | [place] [address] | Pacemaker; | | | | | [phone] | Sinoatrial node | | | | | | dysfunction (HCC) | | | | | | with symptomatic | | | | | | bradycardia | +--------+ + + + + documented as of this encounter Visit Diagnoses Not on filedocumented in this encounter"
--- OUTSIDE RECORDS SUMMARY | ~2020-04-15 | XMS | Encounter Summary ---
Demographics + + + | Address | [address] | | | [place] [address] | + + + | Home Phone [...] Providers + +------+ + | Care Health Services Director Name | Role | Phone [...] Provider Unknown | | | | | [place], [place] | [phone] | | | | | [address] | | | | | | [phone] | | | +--------+ + + + [...] + + + +---------+ + + | Mullin-3 Fatty | CAPS, one capsule by | [...] W | | | | | | [place], | | | | | | [place] [address] | | | | | | [phone] | | | | | | | | +--------+ + + + + | 05/01/ | Procedure | Cardiology | | | | 2019 | visit | | | | +--------+ + + + + | 05/01/ | Office | Cardiology | Silvia, | | | 2019 | Visit | | [address] W | | | | | | [place], | | | | | | [place] [address] | | | | | | [phone] | | | | | | | | +--------+ + + + + | 05/21/ | Implant | Cardiology | Daljit Singletary, | Remote Device | 2019 | Monitor | | MD [address] [place] | Interrogation | | | | | [place], | (Primary Dx); | | | | | [place] [address] | Pacemaker; | | | | | [phone] | Sinoatrial node | | | | [...]
--- OUTSIDE RECORDS SUMMARY | ~2020-04-15 | XMS | Encounter Summary ---
Demographics + + + | Address | [address] [place] [address] [address] | | | [place] [address] | + + + | Home Phone [...] [place] | | | | | [address] | | + + + + + Care Team Providers + +------+ + | Care Aboriginal Community Council Member Name | Role | Phone | [...] | | | | | unspecified | [address] | | | | | | type Rectal | Ave | | | | | | bleeding | [facility] [place] | | | | | | Procedures | [address] | | | | | | CONSULT TO | Phone: | | | | | | GASTROENTERO | [phone] | | | | | | LOGY | Fax: | | | | | | | [phone] | | + +--------+ + + + [...] | | | | | Procedures | [place], [place] | [facility] | | | | | CONSULT TO | [address] | Health and | | | | | ENDOSCOPY | Phone: | Healing, | | | | | UNIT: | [phone] | Building [address] | | | | | BOWEL | Fax: | [place], [place] | | | | | CAPSULE | [phone] | [address] | | | | | ENDOSCOPY | | Phone: | | | | | | | [phone] | | | | | | | Fax: | | | | | | | [phone] | + +--------+ + + + + [...] | | | | | bleeding | [place], [place] | [address] | | | | | Procedures | [address] | for Health | | | | | CONSULT TO | Phone: | and Healing, | | | | | ENDOSCOPY | [phone] | Building 2 | | | | | UNIT: | Fax: | [place], [place] | | | | | COLONOSCOPY | [phone] | [address] | | | | | | | Phone: | | | | | | | [phone] | | | | | | | Fax: | | | | | | | [phone] | +--------+--------+ + + + + Reason [...] | Other | | 2020 | | [place] at [facility] [address] | MD [address] | | | | | [address] | [facility] [place] | | | | | Mailcode: [place] | [address] | | | | | for Health and | [phone] | | | | | [facility] 2 | | | | | | [place], [place] | | | | | | [address] | | | | | | [phone] | | | +--------+ + + + [...]
--- OUTSIDE RECORDS SUMMARY | ~2020-04-15 | XMS | Encounter Summary ---
Demographics + + + | Address | [address] | | | [place] [address] | + + + | Home Phone [...] Providers + +------+ + | Care Stapler Hand Name | Role | Phone | [...] Provider Unknown | | | | | [place], [place] | [phone] | | | | | [address] | | | | | | [phone] | | | +--------+ + + + [...] | | | | | | [place] [address] | | | | | | [phone] | | | | | | | [...] | | | | | | [place] [address] | | | | | | [phone] | | | | | | | | +--------+ + + + + | 05/21/ | Implant | Cardiology | Daljit Singletary, | Remote Device | | 2019 | Monitor | | [address] | Interrogation | | | | | [place], | (Primary Dx); | | | | | [place] [address] | Pacemaker; | | | | | [phone] | Sinoatrial node | | | | [...]
--- OUTSIDE RECORDS SUMMARY | ~2020-04-15 | XMS | Encounter Summary ---
Demographics + + + | Address | [address] | | | [place] [address] | + + + | Home Phone [...] + + | 01/07/ | Hospital | [facility] | Conversion | | | 2017 | Encounter | [facility] | Transaction, | | | | | ULTRASOUND [address] | Provider Unknown | | | | | [address] [facility] [address] | [phone] | | | | | [place] | | | | | | [address] | Kirk French | | | | | [phone] | MD Eva Guidry | | | | | | [address] [place], | | | | | | [place] [address] | | | | | | [phone] | | | | | | | [...] + + + +---------+ + + | Lynden-3 Fatty | CAPS, one capsule by | [...] | | | | | | [place] [address] | | | | | | [phone] | | | | | | | | +--------+ + + + + | 05/01/ | Procedure | Cardiology | | | | 2019 | visit | | | | +--------+ + + + + | 05/01/ | Office | Cardiology | Silvia, | | | 2019 | Visit | | [address] W | | | | | | [place], | | | | | | [place] [address] | | | | | | [phone] | | | | | | | | +--------+ + + + + | 05/21/ | Implant | Cardiology | Daljit Singletary, | Remote Device | | 2019 | Monitor | | [address] [place] | Interrogation | | | | | [place], | (Primary Dx); | | | | | [place] [address] | Pacemaker; | | | | | [phone] | Sinoatrial node | | | | | | dysfunction (HCC) | | | | | | with symptomatic | | | | | | bradycardia | +--------+ + + + + documented as of this encounter Visit Diagnoses Not on filedocumented in this encounter"
--- OUTSIDE RECORDS SUMMARY | ~2020-04-15 | XMS | Encounter Summary ---
Demographics + + + | Address | [address] | | | [place] [address] | + + + | Home Phone [...] Team Providers + +------+ + | Care Sinker Winder Name | Role | Phone | + +------+ + PCP | Unavailable | + +------+ + Encounter Details +--------+ + + + + | Date | Type | Department | Care Team | Description | +--------+ + + + + | 11/14/ | [facility] | [facility] | William Hirsch | | | 1999 | Encounter | MED CTR EMERGENCY | MD Cristobal [address] | | | | | CENTER [address] [place] | [address] | | | | | [place] | [place] [address] | | | | | [address] | [phone] | | | | | [phone] | | | +--------+ + + + [...] W | | | | | | [place], | | | | | | [place] [address] | | | | | | [phone] | | | | | | | | +--------+ + + + + | 05/01/ | Procedure | Cardiology | | | | 2019 | visit | | | | +--------+ + + + + | 05/01/ | Office | Cardiology | Silvia, | | | 2019 | Visit | | [address] W | | | | | | [place], | | | | | | [place] [address] | | | | | | [phone] | | | | | | | | +--------+ + + + + | 05/21/ | Implant | Cardiology | Daljit Singletary, | Remote Device | | 2019 | Monitor | | MD [address] [place] | Interrogation | | | | | [place], | (Primary Dx); | | | | | [place] [address] | Pacemaker; | | | | | [phone] | Sinoatrial node | | | | | | dysfunction (HCC) | | | | | | with symptomatic | | | | | | bradycardia | +--------+ + + + + documented as of this encounter Visit Diagnoses Not on filedocumented in this encounter"
--- OUTSIDE RECORDS SUMMARY | ~2020-04-15 | XMS | Encounter Summary ---
Demographics + + + | Address | [address] | | | [place] [address] | + + + | Home Phone [...] Providers + +------+ + | Care Printer Technician Name | Role | Phone | [...] | | | CENTER [address] | [place], [place] | (Primary Dx) | | | | [place], [place] | [address] | | | | | [address] | | | | | | [phone] | | | +--------+ + + + [...] + + + +---------+ + + | [place]-3 Fatty | CAPS, one capsule by | [...] | | | | | | [place], | | | | | | [place] [address] | | | | | | [phone] | | | | | | | | +--------+ + + + + | 05/01/ | Procedure | Cardiology | | | | 2019 | visit | | | | +--------+ + + + + | 05/01/ | Office | Cardiology | Silvia, | | | 2019 | Visit | | [address] W | | | | | | [place], | | | | | | [place] [address] | | | | | | [phone] | | | | | | | | +--------+ + + + + | 05/21/ | Implant | Cardiology | Daljit Singletary, | Remote Device | | 2019 | Monitor | | [facility] | Interrogation | | | | | [place], | (Primary Dx); | | | | | [place] [address] | Pacemaker; | | | | | [phone] | Sinoatrial node | | | | [...] mL/min/1.73m2 | [facility] | | | [facility] | RATE,ESTIMATED | | MEDICAL | | | | mL/min/1.33v4Cvlt than | | CENTER - | | [...] Total | appended report. These | | [facility] | | | | results have been [...] | [address] | [place], [place] | [phone] | | [facility] | | [address] | | | [...] | | | | ANGELA MARADIAGA MD ([id number]) | | | | | | on [...] | | | | | | [employer] | | | | | [...] [address] | [place] | [phone] | | [facility] | | [address] | | | - LABORATORY | | [...] + | [facility] | [address] | [place] | [phone] | | [facility] | | [address] | | | - LABORATORY | | [...]
--- OUTSIDE RECORDS SUMMARY | ~2020-04-15 | XMS | Encounter Summary ---
Demographics + + + | Address | [address] | | | [place] [address] | + + + | Home Phone [...] + + | 01/21/ | Anesthesia | [facility] | Jarett Barakat | | | 2020 | Event | MED CTR MP INTRA OP | P, MD [address] | | | | | [address] | [place], [place] | | | | | [place], [place] | [address] | | | | | [address] | [phone] | | | | | [phone] | | | +--------+ + + + [...] | | | | | | [place] [address] | | | | | | [phone] | | | | | | | | +--------+ + + + + | 05/01/ | Procedure | Cardiology | | | | 2019 | visit | | | | +--------+ + + + + | 05/01/ | Office | Cardiology | Silvia, | | | 2019 | Visit | | [address] | | | | | | [place], | | | | | | [place] [address] | | | | | | [phone] | | | | | | | | +--------+ + + + + | 05/21/ | Implant | Cardiology | Daljit Singletary, | Remote Device | | 2019 | Monitor | | MD Sim [facility] | Interrogation | | | | | [place], | (Primary Dx); | | | | | [place] [address] | Pacemaker; | | | | | [phone] | Sinoatrial node | | | | | | dysfunction (HCC) | | | | | | with symptomatic | | | | | | bradycardia | +--------+ + + + + documented as of this encounter Visit Diagnoses Not on filedocumented in this encounter"
--- OUTSIDE RECORDS SUMMARY | ~2020-04-15 | XMS | Encounter Summary ---
Demographics + + + | Address | [address] | | | [place] [address] | + + + | Home Phone [...] Providers + +------+ + | Care Offset Lithographic Press Operator Name | Role | Phone [...] 2019 | | GASTROENTEROLOGY | [address], [place] | (stomach cramps and | | | | [address] [place] | [address] [place], [place] | liquid stool) | | | | [address] [place], [place] | [address] | | | | | [address] | | | | | | [phone] | | | +--------+ + + + [...] | | | | | | [place] [address] | | | | | | [phone] | | | | | | | | +--------+ + + + + | 05/01/ | Procedure | Cardiology | | | | 2019 | visit | | | | +--------+ + + + + | 05/01/ | Office | Cardiology | Silvia, | | | 2019 | Visit | | [address] W | | | | | | [place], | | | | | | [place] [address] | | | | | | [phone] | | | | | | | | +--------+ + + + + | 05/21/ | Implant | Cardiology | Daljit Singletary, | Remote Device | | 2019 | Monitor | | [address] [place] | Interrogation | | | | | [place], | (Primary Dx); | | | | | [place] [address] | Pacemaker; | | | | | [phone] | Sinoatrial node | | | | [...]
--- OUTSIDE RECORDS SUMMARY | ~2020-04-15 | XMS | Encounter Summary ---
Demographics + + + | Address | [address] | | | [place] [address] | + + + | Home Phone [...] Providers + +------+ + | Care Long Chain Beamer Name | Role | Phone | + [...] + + | 12/23/ | Telephone | [facility] | Emmanuel Daniel MD | Other (Needs to know | | 2017 | | GASTROENTEROLOGY | [address], [place] | what he can eat | | | | [address] [place] | [address] [place], [place] | today) | | | | [address] [place], [place] | [address] | | | | | [address] | | | | | | [phone] | | | +--------+ + + + [...] | | | | | | [place] [address] | | | | | | [phone] | | | | | | | | +--------+ + + + + | 05/01/ | Procedure | Cardiology | | | | 2019 | visit | | | | +--------+ + + + + | 05/01/ | Office | Cardiology | Silvia, | | | 2019 | Visit | | PARISA Vernon [address] | | | | | | [place], | | | | | | [place] [address] | | | | | | [phone] | | | | | | | | +--------+ + + + + | 05/21/ | Implant | Cardiology | Daljit Singletary, | Remote Device | | 2019 | Monitor | | [facility] | Interrogation | | | | | [place], | (Primary Dx); | | | | | [place] [address] | Pacemaker; | | | | | [phone] | Sinoatrial node | | | | | | dysfunction (HCC) | | | | | | with symptomatic | | | | | | bradycardia | +--------+ + + + + documented as of this encounter Visit Diagnoses Not on filedocumented in this encounter"
--- OUTSIDE RECORDS SUMMARY | ~2020-04-15 | XMS | Encounter Summary ---
Demographics + + + | Address | [address] | | | [place] [address] | + + + | Home Phone [...] Team Providers + +------+ + | Care Portainer Operator Name | Role | Phone | [...] + | 06/02/ | Telephone | [facility] | Daljit Singletary, | Other (symptoms) | | 2019 | | CARDIOLOGY [address] | MD [address] [place] | | | | | [place], | [place], | | | | | [place] [address] | [place] [address] | | | | | [phone] | [phone] | | | | | | | [...] | | | | | | [place] [address] | | | | | | [phone] | | | | | | | | +--------+ + + + + | 05/01/ | Procedure | Cardiology | | | | 2019 | visit | | | | +--------+ + + + + | 05/01/ | Office | Cardiology | [place], | | | 2019 | Visit | | [address] | | | | | | [place], | | | | | | [place] [address] | | | | | | [phone] | | | | | | | | +--------+ + + + + | 05/21/ | Implant | Cardiology | Daljit Singletary, | Remote Device | 2019 | Monitor | | MD Chiquis Oro | Interrogation | | | | | [place], | (Primary Dx); | | | | | [place] [address] | Pacemaker; | | | | | [phone] | Sinoatrial node | | | | | | dysfunction (HCC) | | | | | | with symptomatic | | | | | | bradycardia | +--------+ + + + + documented as of this encounter Visit Diagnoses Not on filedocumented in this encounter"
--- OUTSIDE RECORDS SUMMARY | ~2020-04-15 | XMS | Encounter Summary ---
Demographics + + + | Address | [address] | | | [place] [address] | + + + | Home Phone [...] + +------+ + | Care Account Executive Sales Representative Name | Role | Phone [...] 2014 | | CARDIOLOGY [address] | CHIEF DRAFTER [address] | | | | | [place], | [place], [place] | | | | | [place] [address] | [address] | | | | | [phone] | | | +--------+ + + + [...] W | | | | | | [place], | | | | | | [place] [address] | | | | | | [phone] | | | | | | | | +--------+ + + + + | 05/01/ | Procedure | Cardiology | | | | 2019 | visit | | | | +--------+ + + + + | 05/01/ | Office | Cardiology | Silvia, | | | 2019 | Visit | | [address] | | | | | | [place], | | | | | | [place] [address] | | | | | | [phone] | | | | | | | | +--------+ + + + + | 05/21/ | Implant | Cardiology | Daljit Singletary, | Remote Device | | 2019 | Monitor | | [address] | Interrogation | | | | | [place], | (Primary Dx); | | | | | [place] [address] | Pacemaker; | | | | | [phone] | Sinoatrial node | | | | | | dysfunction (HCC) | | | | | | with symptomatic | | | | | | bradycardia | +--------+ + + + + documented as of this encounter Visit Diagnoses Not on filedocumented in this encounter"
--- OUTSIDE RECORDS SUMMARY | ~2020-04-15 | XMS | Encounter Summary ---
Demographics + + + | Address | [address] | | | [place] [address] | + + + | Home Phone [...] Providers + +------+ + | Care Elevator Serviceman Name | Role | Phone | + [...] + + | 01/05/ | Office | [facility] | [place], | Pacemaker - | | 2018 | Visit | CARDIOLOGY [address] | [address] | [employer] - [id number] | | | | [place], | [place], | [place] - Implanted | | | | [place] [address] | [place] [address] | 06/14/2009 (Primary | | | | [phone] | [phone] | Dx); Chest pain, | | | [...] involving | | | | | | [place] coronary | | | | | | artery of [place] | | | | | | heart [...] of non-critical coronary artery d isease involving [place] coronary artery of [place] heart without angina pectoris, essential h ypertension, [...] pain. He went to the ER in [place] because th e NTG didn't relieved the pain. He was diagnosed with bronchitis. Otherwise he has had no ot her symptoms. He has had a good energy level. He tries to stay active. He has joined a [employer] gym and trying to exercise more often. [...] Preventative health care Coronary artery disease involving [place] coronary artery of [place] heart without angina pectoris Cannabis abuse, daily [...] by mouth every evening 90 tablet 0 [facility] Natural Products (OSTEO BI-FLEX/5-LOXIN [...] 3RD DOSE, CALL 911 100 tablet 3 [place]-3 Fatty Acids (SALMON OIL-1000 PO) CAPS, one [...] 131 (A) 10/18/2017 I reviewed records from [facility] for office visit on 01/2017 whic [...] overload. 2. Non-critical Coronary artery disease involving [place] coronary a rtery of [place] heart without angina pectoris: A. Normal exercise [...] ventricular arrhythmia performed by Dr. Gambino at [facility] on 01/30/2013. Patient had spontaneous [...] to go back in 3 days to [place] for an attempt of ablation under general [...] this chart may have been created with Parachute voice recognition software. Occasi onal wrong-word or [...] | | | | | | [place] [address] | | | | | | [phone] | | | | | | | | +--------+ + + + + | 05/01/ | Procedure | Cardiology | | | | 2019 | visit | | | | +--------+ + + + + | 05/01/ | Office | Cardiology | Silvia, | | | 2019 | Visit | | [address] | | | | | | [place], | | | | | | [place] [address] | | | | | | [phone] | | | | | | | | +--------+ + + + + | 05/21/ | Implant | Cardiology | Sydni Singletary, | Remote Device | 2019 | Monitor | | [address] [place] | Interrogation | | | | | [place], | (Primary Dx); | | | | | [place] [address] | Pacemaker; | | | | | [phone] | Sinoatrial node | | | | [...] dysfunction | | | | | | ([facility]) with | | | | | | symptomatic | | | | | | bradycardia | | | | | | Symptomatic PVCs | | | | | | Tachycardia | | | | | | Coronary artery | | | | | | disease involving | | | | | | [place] coronary | | | | | | artery of [place] | | | | | | heart [...] aneurysm | | | | | | ([facility]) | | + +--------+ + + [...] SYDNI | | | | | | ([id number]) on 01/06/2018 | | | | | [...] Coronary artery disease involving [place] coronary artery of [place] heart without | | angina pectoris | + + | Hyperlipidemia, mixed Mixed hyperlipidemia | + + | Hypertension, unspecified type | + + | Syncope, unspecified syncope type | + + | Ascending thoracic aortic aneurysm (HCC) Thoracic aneurysm without mention of rupture | + + documented in this encounter
--- OUTSIDE RECORDS SUMMARY | ~2020-04-15 | XMS | Encounter Summary ---
Demographics + + + | Address | [address] | | | [place] [address] | + + + | Home Phone [...] Providers + +------+ + | Care Gas Blender Name | Role | Phone | [...] | CARDIOLOGY [address] | [address] | [facility]) | | | | [place], | [place], | | | | | [place] [address] | [place] [address] | | | | | [phone] | [phone] | | | | | | | [...] | | | | | | [place] [address] | | | | | | [phone] | | | | | | | | +--------+ + + + + | 05/01/ | Procedure | Cardiology | | | | 2019 | visit | | | | +--------+ + + + + | 05/01/ | Office | Cardiology | Silvia, | | | 2019 | Visit | | PARISA Vernon [address] | | | | | | [place], | | | | | | [place] [address] | | | | | | [phone] | | | | | | | | +--------+ + + + + | 05/21/ | Implant | Cardiology | Daljit Singletary, | Remote Device | 2019 | Monitor | | [address] [facility] | Interrogation | | | | | [place], | (Primary Dx); | | | | | [place] [address] | Pacemaker; | | | | | [phone] | Sinoatrial node | | | | | | dysfunction (HCC) | | | | | | with symptomatic | | | | | | bradycardia | +--------+ + + + + documented as of this encounter Visit Diagnoses Not on filedocumented in this encounter"
--- OUTSIDE RECORDS SUMMARY | ~2020-04-15 | XMS | Encounter Summary ---
Demographics + + + | Address | [address] | | | [place] [address] | + + + | Home Phone [...] + + +---------+ + | Maria Isabel Sancehz | ECON | Unknown | | + + +---------+ + Care Team Providers + +------+ + | Care Steam Shovel Operating Engineer Name | Role | Phone | [...] | 04/07/ | Office | [facility] | Matthew Uriarte | Left ureteral | | 2019 | Visit | [address] | MD Tawanna [address] | calculus (Primary | | | | [place], [place] | [place] | Dx); Kidney stones | | | | [address] | [address] | | | | | [phone] | | | +--------+---------+ + + + [...] Instructi ons Your surgery with Dr. Matthew Uriatre has been scheduled for April 13, 2019 at 7:45 AM at [facility]. Please report to the [facility] Procedure [facility] no later than 6:15 AM. REMEMBER: NOTHING TO EAT OR DRINK AFTER MIDNIGHT April 12, 2019. NO FISH OIL, ASPIRIN OR ASPIRIN PRODUCTS ONE WEEK PRIOR TO SURGERY. Tylenol and Advil are OK. You will need to get the following testing done prior to surgery: CBC, BMP YOU WILL NEED TO BRING A CARE MANAGER CNA WITH YOU THE DAY OF SURGERY. Call us at [phone] with any questions. [] Pain management booklet [...] [employer] Peptic ulcer disease Premature ventricular contraction [facility] care 06/26/2013 LAST PSA:12/16/2010 RESULT:0.14 LAST [...] CV LHC; Surgeon: Daljit Singletary MD; Location: [facility] CV LAB CARDIAC CATHERIZATION N/A 01/25/2019 Procedure: CV Cor Angio; Surgeon: Daljit Singletary MD; Location: [facility] CV LAB COLONOSCOPY N/A 12/24/2017 Procedure: COLONOSCOPY; Surgeon: Emmanuel Daniel MD; Location: [facility] MEDICAL PROCEDURE UNIT COLONOSCOPY N/A 01/05/2019 Procedure: COLONOSCOPY; Surgeon: Emmanuel Daniel MD; Location: [facility] MEDICAL PROCEDURE UNIT EGD 12/24/2017 [...] Procedure: EGD; Surgeon: Emmanuel Daniel MD; Location: [facility] MEDICAL PROCEDURE UNIT UPPER GASTROINTESTINAL ENDOSCOPY N/A 01/05/2019 Procedure: EGD; Surgeon: Emmanuel Daniel MD; Location: [facility] MEDICAL PROCEDURE UNIT VASECTOMY Family [...] EVERY DAY, Disp: 90 tablet, Rfl: 3 [facility] Natural Products (OSTEO BI-FLEX/5-LOXIN ADVANCED PO), Take [...] 911, Disp: 100 ta blet, Rfl: 3 [place]in-3 Fatty Acids (SALMON OIL-1000 PO), CAPS, one capsule by mouth daily twice daily , Disp: , Rfl: ondansetron (ZOFRAN ODT) 4 mg disintegrating tablet, Take 4 mg by mouth., Disp: , Rfl: ONE TOUCH DELICA LANCETS [facility], Check glucose as needed for [...] have not thoroughly proofread this note, and movie shot camera operator errors are very likely to occur. [...] | | | | | | [place], | | | | | | [place] [address] | | | | | | [phone] | | | | | | | | +--------+ + + + + | 05/01/ | Procedure | Cardiology | | | | 2019 | visit | | | | +--------+ + + + + | 05/01/ | Office | Cardiology | Silvia, | | | 2019 | Visit | | [address] | | | | | | [place], | | | | | | [place] [address] | | | | | | [phone] | | | | | | | | +--------+ + + + + | 05/21/ | Implant | Cardiology | Daljit Singletary, | Remote Device | 2019 | Monitor | | MD [address] [place] | Interrogation | | | | | [place], | (Primary Dx); | | | | | [place] [address] | Pacemaker; | | | | | [phone] | Sinoatrial node | | | | [...]
--- OUTSIDE RECORDS SUMMARY | ~2020-04-15 | XMS | Encounter Summary ---
Demographics + + + | Address | [address] | | | [place] [address] | + + + | Home Phone [...] Team Providers + +------+ + | Care Jack Prizer Name | Role | Phone | + +------+ + | Darion Holden DO | PCP | | + +------+ + Encounter Details +--------+ + + + + | Date | Type | Department | Care Team | Description | +--------+ + + + + | 08/05/ | Hospital | [facility] | Emmanuel Daniel MD | | | 2009 | Encounter | MED CTR XRAY [address] | [address] | | | | | [place] | [address] [place], [place] | | | | | [place] [address] | [address] | | | | | [phone] | | | +--------+ + + + [...] | | | | | | [place], | | | | | | [place] [address] | | | | | | [phone] | | | | | | | | +--------+ + + + + | 05/01/ | Procedure | Cardiology | | | | 2019 | visit | | | | +--------+ + + + + | 05/01/ | Office | Cardiology | Silvia, | | | 2019 | Visit | | [address] | | | | | | [place], | | | | | | [place] [address] | | | | | | [phone] | | | | | | | | +--------+ + + + + | 05/21/ | Implant | Cardiology | Daljit Singletary, | Remote Device | | 2019 | Monitor | | [address] [place] | Interrogation | | | | | [place], | (Primary Dx); | | | | | [place] [address] | Pacemaker; | | | | | [phone] | Sinoatrial node | | | | | | dysfunction (HCC) | | | | | | with symptomatic | | | | | | bradycardia | +--------+ + + + + documented as of this encounter Visit Diagnoses Not on filedocumented in this encounter"
--- OUTSIDE RECORDS SUMMARY | ~2020-04-15 | XMS | Encounter Summary ---
Demographics + + + | Address | [address] | | | [place] [address] | + + + | Home Phone [...] Providers + +------+ + | Care Retail Clerk Name | Role | Phone | [...] 2014 | | CARDIOLOGY [address] | JDE DEVELOPER [address] [place] | | | | | [place], | [place], [place] | | | | | [place] [address] | [address] | | | | | [phone] | | | +--------+ + + + [...] W | | | | | | [place], | | | | | | [place] [address] | | | | | | [phone] | | | | | | | | +--------+ + + + + | 05/01/ | Procedure | Cardiology | | | | 2019 | visit | | | | +--------+ + + + + | 05/01/ | Office | Cardiology | Silvia, | | | 2019 | Visit | | [address] | | | | | | [place], | | | | | | [place] [address] | | | | | | [phone] | | | | | | | | +--------+ + + + + | 05/21/ | Implant | Cardiology | Daljit Singletary, | Remote Device | | 2019 | Monitor | | [address] [place] | Interrogation | | | | | [place], | (Primary Dx); | | | | | [place] [address] | Pacemaker; | | | | | [phone] | Sinoatrial node | | | | | | dysfunction (HCC) | | | | | | with symptomatic | | | | | | bradycardia | +--------+ + + + + documented as of this encounter Visit Diagnoses Not on filedocumented in this encounter"
--- OUTSIDE RECORDS SUMMARY | ~2020-04-15 | XMS | Encounter Summary ---
Demographics + + + | Address | [address] [place] [address] [address] | | | [place] [address] | + + + | Home Phone [...] [place] | | | | | [address] | | + + + + + Care Team Providers + +------+ + | Care Residential Carpenter Name | Role | Phone | [...] as of this encounter Progress Notes Interface, Grinding Operator In - 07/19/2006 3:05 AM PDTCLINIC DATE: 06/13/2002 [facility] REFERRING PHYSICIAN: Eugene Vera D.O. [address] [place] [address] Mr. Sanchez is a new patient. He [...] proceed. Martell Allen M.D. ELIZABETH / KATTY [id number] / [id number] / [id number] / [id number] cc: Eugene Vera D.O. [address] [place] [id number] signed by Interface, Grinding Operator In at 07/19/2006 3:0 5 AM PDTdocumented in this encounter Plan of Treatment Not on filedocumented as of this encounter Visit Diagnoses Not on filedocumented in this encounter
--- OUTSIDE RECORDS SUMMARY | ~2020-04-15 | XMS | Encounter Summary ---
Demographics + + + | Address | [address] | | | [place] [address] | + + + | Home Phone [...] Providers + +------+ + | Care Credit Review Analyst Name | Role | Phone | + +------+ + | Kirk French MD | PCP | | + +------+ + Encounter Details +--------+ + + + + | Date | Type | Department | Care Team | Description | +--------+ + + + + | 12/23/ | Emergency | [facility] | Cristal Alexander, | Chronic neck pain; | | 2015 | | MEDICAL CENTER | DO [address] | Headache(784.0) | | | | EMERGENCY CENTER | [place] [address] | | | | | [address] | [phone] | | | | | [place], [place] | | | | | | [address] | | | | | | [phone] | | | +--------+ + + + [...] | | | | | | | #[id number], exp 07/2016 | | | | | [...] | | | | | | [place] [address] | | | | | | [phone] | | | | | | | [...] | | | | | | [place] [address] | | | | | | [phone] | | | | | | | | +--------+ + + + + | 05/21/ | Implant | Cardiology | Daljit Singletary, | Remote Device | | 2019 | Monitor | | [address] [facility] | Interrogation | | | | | [place], | (Primary Dx); | | | | | [place] [address] | Pacemaker; | | | | | [phone] | Sinoatrial node | | | | [...] Conversion - 07/07/2019 5:05 AM PDT PINA [id number] years MaleCT | | CERVICAL SPINE WO [...]
--- OUTSIDE RECORDS SUMMARY | ~2020-04-15 | XMS | Encounter Summary ---
Demographics + + + | Address | [address] | | | [place] [address] | + + + | Home Phone [...] | | [address] | [place] [address] | | | | | [place] | [phone] | | | | | [address] | | | | | | [phone] | | | +--------+ + + + [...] | | | | | | [place], | | | | | | [place] [address] | | | | | | [phone] | | | | | | | | +--------+ + + + + | 05/01/ | Procedure | Cardiology | | | | 2019 | visit | | | | +--------+ + + + + | 05/01/ | Office | Cardiology | Silvia, | | | 2019 | Visit | | [address] | | | | | | [place], | | | | | | [place] [address] | | | | | | [phone] | | | | | | | | +--------+ + + + + | 05/21/ | Implant | Cardiology | Daljit Singletary, | Remote Device | 2019 | Monitor | | MD [address] [place] | Interrogation | | | | | [place], | (Primary Dx); | | | | | [place] [address] | Pacemaker; | | | | | [phone] | Sinoatrial node | | | | | | dysfunction (HCC) | | | | | | with symptomatic | | | | | | bradycardia | +--------+ + + + + documented as of this encounter Visit Diagnoses Not on filedocumented in this encounter"
--- OUTSIDE RECORDS SUMMARY | ~2020-04-15 | XMS | Encounter Summary ---
Demographics + + + | Address | [address] | | | [place] [address] | + + + | Home Phone [...] | 10/09/ | Telephone | [facility] | Michael Amanda, | Other | | 2012 | | MEDICINE [place] | DO [address] | | | | | [address] | [place] | | | | | [place] | [address] | | | | | [address] | | | | | | [phone] | | | +--------+ + + + [...] W | | | | | | [place], | | | | | | [place] [address] | | | | | | [phone] | | | | | | | | +--------+ + + + + | 05/01/ | Procedure | Cardiology | | | | 2019 | visit | | | | +--------+ + + + + | 05/01/ | Office | Cardiology | Silvia, | | | 2019 | Visit | | [address] | | | | | | [place], | | | | | | [place] [address] | | | | | | [phone] | | | | | | | | +--------+ + + + + | 05/21/ | Implant | Cardiology | Daljit Singletary, | Remote Device | 2019 | Monitor | | MD [place] | Interrogation | | | | | [place], | (Primary Dx); | | | | | [place] [address] | Pacemaker; | | | | | [phone] | Sinoatrial node | | | | | | dysfunction (HCC) | | | | | | with symptomatic | | | | | | bradycardia | +--------+ + + + + documented as of this encounter Visit Diagnoses Not on filedocumented in this encounter"
--- OUTSIDE RECORDS SUMMARY | ~2020-04-15 | XMS | Encounter Summary ---
Demographics + + + | Address | [address] [place] [address] [address] | | | [place] [address] | + + + | Home Phone [...] [place] | | | | | [address] | | + + + + + Care Team Providers + +------+ + | Care Mental Health Aides Teacher Name | Role | Phone [...]
--- OUTSIDE RECORDS SUMMARY | ~2020-04-15 | XMS | Encounter Summary ---
Demographics + + + | Address | [address] | | | [place] [address] | + + + | Home Phone [...] Providers + +------+ + | Care Crop Setting Out Machine Operator Name | Role | [...] 2019 | | GASTROENTEROLOGY | [address], [place] | Syndrome | | | | [address] [place] | [address] [place], [place] | | | | | [address] [place], [place] | [address] | | | | | [address] | | | | | | [phone] | | | +--------+ + + + [...] | | | | | | [place] [address] | | | | | | [phone] | | | | | | | | +--------+ + + + + | 05/01/ | Procedure | Cardiology | | | | 2019 | visit | | | | +--------+ + + + + | 05/01/ | Office | Cardiology | Silvia, | | | 2019 | Visit | | PARISA Vernon [address] | | | | | | [place], | | | | | | [place] [address] | | | | | | [phone] | | | | | | | | +--------+ + + + + | 05/21/ | Implant | Cardiology | Daljit Singletary, | Remote Device | | 2019 | Monitor | | [address] | Interrogation | | | | | [place], | (Primary Dx); | | | | | [place] [address] | Pacemaker; | | | | | [phone] | Sinoatrial node | | | | | | dysfunction ([facility]) | | | | | | with symptomatic | | | | | | bradycardia | +--------+ + + + + documented as of this encounter Visit Diagnoses Not on filedocumented in this encounter"
--- OUTSIDE RECORDS SUMMARY | ~2020-04-15 | XMS | Encounter Summary ---
Demographics + + + | Address | [address] | | | [place] [address] | + + + | Home Phone [...] Providers + +------+ + | Care Chalk Tester Name | Role | Phone | + +------+ + | Kirk French MD | PCP | | + +------+ + Encounter Details +--------+ + + + + | Date | Type | Department | Care Team | Description | +--------+ + + + + | 10/25/ | Hospital | [facility] | Kikr French | Aneurysm (HCC) | | 2017 | Encounter | MED CTR ULTRASOUND | D, MD [address] | | | | | [address] [place] | [address] | | | | | [place], [place] | [place] [address] | | | | | [address] | [phone] | | | | | [phone] | | | | | | | [...] + + + +---------+ + + | Coldwater-3 Fatty | CAPS, one capsule by | [...] | | | | | | [place], | | | | | | [place] [address] | | | | | | [phone] | | | | | | | | +--------+ + + + + | 05/01/ | Procedure | Cardiology | | | | 2019 | visit | | | | +--------+ + + + + | 05/01/ | Office | Cardiology | Silvia, | | | 2019 | Visit | | [address] W | | | | | | [place], | | | | | | [place] [address] | | | | | | [phone] | | | | | | | | +--------+ + + + + | 05/21/ | Implant | Cardiology | Daljit Singletary, | Remote Device | | 2019 | Monitor | | [address] [facility] | Interrogation | | | | | [place], | (Primary Dx); | | | | | [place] [address] | Pacemaker; | | | | | [phone] | Sinoatrial node | | | | [...]
--- OUTSIDE RECORDS SUMMARY | ~2020-04-15 | XMS | Encounter Summary ---
Demographics + + + | Address | [address] | | | [place] [address] | + + + | Home Phone [...] Providers + +------+ + | Care Rubber Cutter And Shape Carver Name | Role | Phone | [...] Refill | | 2013 | | [facility] [place] | DO [address] | | | | | [address] | [place] | | | | | [place] | [address] | | | | | [address] | | | | | | [phone] | | | +--------+--------+ + + + [...] W | | | | | | [place], | | | | | | [place] [address] | | | | | | [phone] | | | | | | | | +--------+ + + + + | 05/01/ | Procedure | Cardiology | | | | 2019 | visit | | | | +--------+ + + + + | 05/01/ | Office | Cardiology | Silvia, | | | 2019 | Visit | | [address] | | | | | | [place], | | | | | | [place] [address] | | | | | | [phone] | | | | | | | | +--------+ + + + + | 05/21/ | Implant | Cardiology | Daljit Singletary, | Remote Device | | 2019 | Monitor | | [address] [facility] | Interrogation | | | | | [address] [place], | (Primary Dx); | | | | | [place] [address] | Pacemaker; | | | | | [phone] | Sinoatrial node | | | | | | dysfunction (HCC) | | | | | | with symptomatic | | | | | | bradycardia | +--------+ + + + + documented as of this encounter Visit Diagnoses Not on filedocumented in this encounter"
--- OUTSIDE RECORDS SUMMARY | ~2020-04-15 | XMS | Encounter Summary ---
Demographics + + + | Address | [address] | | | [place] [address] | + + + | Home Phone [...] Providers + +------+ + | Care Chief Operator Lock Tender Name | Role | Phone | [...] [address] | | | | | [place], | [place], | | | | | [place] [address] | [place] [address] | | | | | [phone] | [phone] | | | | | | | [...] W | | | | | | [place], | | | | | | [place] [address] | | | | | | [phone] | | | | | | | | +--------+ + + + + | 05/01/ | Procedure | Cardiology | | | | 2019 | visit | | | | +--------+ + + + + | 05/01/ | Office | Cardiology | Silvia, | | | 2019 | Visit | | [address] W | | | | | | [place], | | | | | | [place] [address] | | | | | | [phone] | | | | | | | | +--------+ + + + + | 05/21/ | Implant | Cardiology | Daljit Singletary, | Remote Device | 2019 | Monitor | | MD [address] [place] | Interrogation | | | | | [place], | (Primary Dx); | | | | | [place] [address] | Pacemaker; | | | | | [phone] | Sinoatrial node | | | | | | dysfunction (HCC) | | | | | | with symptomatic | | | | | | bradycardia | +--------+ + + + + documented as of this encounter Visit Diagnoses Not on filedocumented in this encounter"
--- OUTSIDE RECORDS SUMMARY | ~2020-04-15 | XMS | Encounter Summary ---
Demographics + + + | Address | [address] | | | [place] [address] | + + + | Home Phone [...] Providers + +------+ + | Care Filter Tip Inspector Name | Role | Phone | [...] + + | 12/21/ | Office | [facility] | [place], | Chest pain (Primary | | 2013 | Visit | CARDIOLOGY [address] | PARISA Vernon [address] | Dx); Symptomatic | | | | [place], | [place], | PVCs; | | | | [place] [address] | [place] [address] | Hyperlipidemia; | | | | [phone] | [phone] | Hypertension; | | | | | [...] this time to see a specialist in [place] and he was to follow up with [...] MOUTH EVERY DAY 30 table t 5 [place]-3 Fatty Acids (SALMON OIL-1000 PO) CAPS, one [...] to go back in 3 days to [place] for an attempt of ablation under [...] weeks. He is in class II of [place] Heart Association funct ional class. There are [...] tolic function, LVEF 65 to 70%. B. SensorTran DDD permanent pacemaker implantation on 06/14/09 by [...] made to ensure accuracy; however, inadvertent computerized structural steel erector errors may be pre sent. documented in [...] | | | | | | [place] [address] | | | | | | [phone] | | | | | | | [...] | | | | | | [place] [address] | | | | | | [phone] | | | | | | | | +--------+ + + + + | 05/21/ | Implant | Cardiology | Daljit Singletary, | Remote Device | 2019 | Monitor | | [address] [place] | Interrogation | | | | | [place], | (Primary Dx); | | | | | [place] [address] | Pacemaker; | | | | | [phone] | Sinoatrial node | | | | [...] of unspecified type of vessel, | | [place] or graft | + + documented in this encounter
--- OUTSIDE RECORDS SUMMARY | ~2020-04-15 | XMS | Encounter Summary ---
Demographics + + + | Address | [address] | | | [place] [address] | + + + | Home Phone [...] + +------+ + | Care Early Childhood Worker Name | Role | Phone | + +------+ + | Michael Amanda DO | PCP | | + +------+ + Encounter Details +--------+ + + + + | Date | Type | Department | Care Team | Description | +--------+ + + + + | 04/03/ | Hospital | [facility] | Jay Gambino MD | | | 2012 - | Encounter | HEART MED CTR | [address] | | | | | CARDIAC TRANSPLANT | [address] [place] | | | 04/04/ | | [address] | [place] [address] | | | 2012 | | [place] | [phone] | | | | | [address] | | | | | | [phone] | | | +--------+ + + + [...] 1960 ADMISSION DATE: 04/03/2013 DISCHARGE DATE: 04/04/2013 [id number] / [id number] ADMISSION DIAGNOSES: 1. Symptomatic premature ventricular contractions [...] study and ablati on. MOE GAY ADM:04/03/13 [id number] 04/04/13 [place] DISCHARGE SUMMARY [id number] [facility] PARISA Hughes [facility] MD Meena Pleitez THIS REPORT IS CONFIDENTIAL AND NOT TO BE RELEASED WITHOUT PROPER AUTHORIZATION. [facility] Mr. Gay was taken to the [...] 180 mg once daily. MOE GAY ADM:04/03/13 [id number] 04/04/13 [place] DISCHARGE SUMMARY [id number] [facility] PARISA Hughes [facility] MD Meena Pleitez THIS REPORT IS CONFIDENTIAL AND NOT TO BE RELEASED WITHOUT PROPER AUTHORIZATION. [facility] 5. Docusate sodium 2 tablets once daily. 6. Marinol 10 mg twice daily. 7. Metoprolol succinate 200 mg once daily. 8. Oxycodone 10 mg 10 mg oral as needed. 9. Oxycodone 30 mg oral twice daily. 10. Pravastatin 40 mg at bedtime. 11. Promethazine 25 mg as needed. 12. Ranitidine 1 to 2 tablets once daily. 13. Bozeman oil 2 tablets twice daily. 14. Valacyclovir 500 mg once daily. There were no new medications or medication dosage changes at time of discharge. PLAN: 1. Mr. Gay will be discharged home on medications as noted above, including his usual m edications of diltiazem and metoprolol. 2. He will be seen and followed by Dr. Gambino on 16 at 9:00 a.m. at [facility], [address]. 3. He will contact our office earlier than scheduled appointment should he have any diffic ulty prior to that time. PARISA Hughes MD A P RICHIE/med #[id number] cc: MD Dona Pleitez ARNP Suwong Wongsuwan, MD Electronically Signed 04/12/13 1400 PARISA Hughes Electronically Signed 05/22/13 1245 Jay Gambino MD MOE GAY ADM:04/03/13 [id number] 04/04/13 [place] DISCHARGE SUMMARY [id number] [facility] PARISA Hughes [facility] Jay Gambino MD R THIS REPORT IS CONFIDENTIAL AND NOT TO BE RELEASED WITHOUT PROPER AUTHORIZATION.Electronica lly signed by Jael Brown at 05/22/2013 1:25 PM Dona Grossman ARNP - 04/04/2013 9:05 AM PDT PATIENT NAME: MOE GAY Sex/Age: M / 53Y : 1960 ADMISSION DATE: 04/03/2013 DISCHARGE DATE: 04/04/2013 [id number] / [id number] ADMISSION DIAGNOSES: 1. Symptomatic premature ventricular contractions [...] and ablati on. MOE GAY Jaimee ADM:04/03/13 [id number] 04/04/13 [place] DISCHARGE SUMMARY [id number] [facility] PARISA Hughes [facility] MD Meena Pleitez THIS REPORT IS CONFIDENTIAL AND NOT TO BE RELEASED WITHOUT PROPER AUTHORIZATION. [facility] Mr. Gay was taken to the [...] 180 mg once daily. MOE GAY ADM:04/03/13 [id number] 04/04/13 [place] DISCHARGE SUMMARY [id number] [facility] PARISA Hughes [facility] MD Meena Pleitez THIS REPORT IS CONFIDENTIAL AND NOT TO BE RELEASED WITHOUT PROPER AUTHORIZATION. [facility] 5. Docusate sodium 2 tablets once daily. 6. Marinol 10 mg twice daily. 7. Metoprolol succinate 200 mg once daily. 8. Oxycodone 10 mg 10 mg oral as needed. 9. Oxycodone 30 mg oral twice daily. 10. Pravastatin 40 mg at bedtime. 11. Promethazine 25 mg as needed. 12. Ranitidine 1 to 2 tablets once daily. 13. Bozeman oil 2 tablets twice daily. 14. Valacyclovir 500 mg once daily. There were no new medications or medication dosage changes at time of discharge. PLAN: 1. Mr. Gay will be discharged home on medications as noted above, including his usual m edications of diltiazem and metoprolol. 2. He will be seen and followed by Dr. Gambino on 16 at 9:00 a.m. at [facility], [address]. 3. He will contact our office earlier than scheduled appointment should he have any diffic ulty prior to that time. PARISA Hughes MD A P RICHIE/med #[id number] cc: MD Dona Pleitez ARNP Suwong Wongsuwan, MD Electronically Signed 04/12/13 1400 PARISA Hughes MOE GAY ADM:04/03/13 [id number] 04/04/13 [place] DISCHARGE SUMMARY [id number] [facility] PARISA Hughes [facility] MD Meena Pleitez THIS REPORT [...] + + + +---------+ + + | [place]-3 Fatty | CAPS, one capsule by | [...] | | | | | | [place] [address] | | | | | | [phone] | | | | | | | | +--------+ + + + + | 05/01/ | Procedure | Cardiology | | | | 2019 | visit | | | | +--------+ + + + + | 05/01/ | Office | Cardiology | [place], | | | 2019 | Visit | | PARISA Vernon [address] | | | | | | [place], | | | | | | [place] [address] | | | | | | [phone] | | | | | | | | +--------+ + + + + | 05/21/ | Implant | Cardiology | Daljit Singletary, | Remote Device | | 2019 | Monitor | | MD [place] | Interrogation | | | | | [place], | (Primary Dx); | | | | | [place] [address] | Pacemaker; | | | | | [phone] | Sinoatrial node | | | | [...] + + + | Glucose | 94Comment: Trinidadian | 65 - 99 mg/dL | [facility] [...] [facility] [address] | [place] [address] | | | [facility] | | | | | LABORATORY [...] + + | [facility] | [address] | [place] [address] | | | [facility] | | | | | LABORATORY | | | | + + + + + documented in this encounter Visit Diagnoses Not on filedocumented in this encounter"
--- OUTSIDE RECORDS SUMMARY | ~2020-04-15 | XMS | Encounter Summary ---
Demographics + + + | Address | [address] [place] [address] [address] | | | [place] [address] | + + + | Home Phone [...] [place] | | | | | [address] | | + + + + + Care Team Providers + +------+ + | Care Wood Buffer Name | Role | Phone | + +------+ + | Darion Holden DO | PCP | | + +------+ + Encounter Details +--------+ + + + + | Date | Type | Department | Care Team | Description | +--------+ + + + + | 01/22/ | Transcribe | [facility] | Transcribe | | | 2020 | Orders | [facility] [address] | Encounter, Provider, | | | | | Tremayne Crane Mailcode: | [address] | | | | | [address] [place] | [place] [address] | | | | | [facility], | | | | | | [address] | | | | | | [place], [place] | | | | | | [address] | | | | | | [phone] | | | +--------+ + + + [...]
--- OUTSIDE RECORDS SUMMARY | ~2020-04-15 | XMS | Encounter Summary ---
Demographics + + + | Address | [address] | | | [place] [address] | + + + | Home Phone [...] +------+ + | Care Teacher Of The Handicapped Name | Role | Phone | + [...] Provider Unknown | | | | | [place], [place] | [phone] | | | | | [address] | | | | | | [phone] | | | +--------+ + + + [...] + + + +---------+ + + | [place]-3 Fatty | CAPS, one capsule by | [...] | | | | | | | #[id number], exp 07/2016 | | | | | [...] | | | | | | [place] [address] | | | | | | [phone] | | | | | | | | +--------+ + + + + | 05/01/ | Procedure | Cardiology | | | | 2019 | visit | | | | +--------+ + + + + | 05/01/ | Office | Cardiology | [place], | | | 2019 | Visit | | PARISA Vernon [address] | | | | | | [place], | | | | | | [place] [address] | | | | | | [phone] | | | | | | | | +--------+ + + + + | 05/21/ | Implant | Cardiology | Daljit Singletary, | Remote Device | | 2020 | Monitor | | [address] [place] | Interrogation | | | | | [place], | (Primary Dx); | | | | | [place] [address] | Pacemaker; | | | | | [phone] | Sinoatrial node | | | | [...]
--- OUTSIDE RECORDS SUMMARY | ~2020-04-15 | XMS | Encounter Summary ---
Demographics + + + | Address | [address] | | | [place] [address] | + + + | Home Phone [...] Providers + +------+ + | Care Director Oracle Name | Role | Phone | + [...] | | | | CENTER [address] | [place], [place] | Anxiety | | | | [place], [place] | [address] | | | | | [address] | | | | | | [phone] | | | +--------+ + + + [...] + + + +---------+ + + | Mobeetie-3 Fatty | CAPS, one capsule by | [...] W | | | | | | [address] [place], | | | | | | [place] [address] | | | | | | [phone] | | | | | | | | +--------+ + + + + | 05/01/ | Procedure | Cardiology | | | | 2019 | visit | | | | +--------+ + + + + | 05/01/ | Office | Cardiology | Silvia, | | | 2019 | Visit | | PARISA Vernon W | | | | | | [address] [place], | | | | | | [place] [address] | | | | | | [phone] | | | | | | | | +--------+ + + + + | 05/21/ | Implant | Cardiology | Daljit Singletary, | Remote Device | 2019 | Monitor | | MD [address] | Interrogation | | | | | [place], | (Primary Dx); | | | | | [place] [address] | Pacemaker; | | | | | [phone] | Sinoatrial node | | | | [...] the uneventful IV administration of 80 mL [id number] contrast. Timing of | | contrast bolus [...] + | MISCELLANEOUS LAB | | | [phone] | + +---------+ + + | MISCELANIOUS LAB | | | [phone] | + +---------+ + + Troponin I [...] | | | | | | [employer] | | | | | [...] + | [facility] | [address] | [place] | [phone] | | [facility] | | [address] | | | - LABORATORY | | | | + + + + + | [facility] | [address] | [place] | | | [facility] | | [id number] | | | - LABORATORY [...] mL/min/1.73m2 | [facility] | | | [facility] | RATE,ESTIMATED | | MEDICAL | | | | mL/min/1.06a3Bixb than | | CENTER - | | [...] [address] | [place] | [phone] | | [facility] | | [address] | | | - LABORATORY | | | | + + + + + | [facility] | [address] | [place] | | | [facility] | | [address] | | | - LABORATORY [...] + | [facility] | [address] | [place] | [phone] | | [facility] | | [address] | | | - LABORATORY | | | | + + + + + | [facility] | [address] | [place], [place] | | | [facility] | | [id number] | | | - [...]
--- OUTSIDE RECORDS SUMMARY | ~2020-04-15 | XMS | Encounter Summary ---
Demographics + + + | Address | [address] | | | [place] [address] | + + + | Home Phone [...] Team Providers + +------+ + | Care Slitter Creaser Slotter Operator Name | Role | Phone | + +------+ + PCP | Unavailable | + +------+ + Encounter Details +--------+ + + + + | Date | Type | Department | Care Team | Description | +--------+ + + + + | [facility] | Eavn Gandara MD | | | 2005 | Encounter | MED CTR LABORATORY | [address] [facility] | | | | | [address] | [place] | | | | | [place] | [address] | | | | | [address] | | | | | | [phone] | | | +--------+ + + + [...] W | | | | | | [place], | | | | | | [place] [address] | | | | | | [phone] | | | | | | | | +--------+ + + + + | 05/01/ | Procedure | Cardiology | | | | 2019 | visit | | | | +--------+ + + + + | 05/01/ | Office | Cardiology | Silvia | | | 2019 | Visit | | PARISA Vernon W | | | | | | [place], | | | | | | [place] [address] | | | | | | [phone] | | | | | | | | +--------+ + + + + | 05/21/ | Implant | Cardiology | Daljit Singletary, | Remote Device | 2019 | Monitor | | MD [address] [place] | Interrogation | | | | | [place], | (Primary Dx); | | | | | [place] [address] | Pacemaker; | | | | | [phone] | Sinoatrial node | | | | | | dysfunction (HCC) | | | | | | with symptomatic | | | | | | bradycardia | +--------+ + + + + documented as of this encounter Visit Diagnoses Not on filedocumented in this encounter"
--- OUTSIDE RECORDS SUMMARY | ~2020-04-15 | XMS | Encounter Summary ---
Demographics + + + | Address | [address] | | | [place] [address] | + + + | Home Phone [...] Providers + +------+ + | Care Retail Sales Vitamin Consultant Name | Role | Phone | [...] Provider Unknown | | | | | [place], [place] | [phone] | | | | | [address] | | | | | | [phone] | | | +--------+ + + + [...] + + + +---------+ + + | Cran[place]-3 Fatty | CAPS, one capsule by | [...] | | | | | | [place] [address] | | | | | | [phone] | | | | | | | | +--------+ + + + + | 05/01/ | Procedure | Cardiology | | | | 2019 | visit | | | | +--------+ + + + + | 05/01/ | Office | Cardiology | Silvia, | | | 2019 | Visit | | PARISA Vernon W | | | | | | [place], | | | | | | [place] [address] | | | | | | [phone] | | | | | | | | +--------+ + + + + | 05/21/ | Implant | Cardiology | Daljit Singletary, | Remote Device | | 2019 | Monitor | | [address] [facility] | Interrogation | | | | | [place], | (Primary Dx); | | | | | [place] [address] | Pacemaker; | | | | | [phone] | Sinoatrial node | | | | [...]
--- OUTSIDE RECORDS SUMMARY | ~2020-04-15 | XMS | Encounter Summary ---
Demographics + + + | Address | [address] | | | [place] [address] | + + + | Home Phone [...] Team Providers + +------+ + | Care Taximeter Repairer Name | Role | Phone | + +------+ + PCP | Unavailable | + +------+ + Encounter Details +--------+ + + + + | Date | Type | Department | Care Team | Description | +--------+ + + + + | 04/28/ | [facility] | [facility] | Jonathan, | | | 2008 | Encounter | MED CTR EMERGENCY | Martell Cr MD [address] | | | | | CENTER [address] | [place] | | | | | [place] | [place] [address] | | | | | [address] | [phone] | | | | | [phone] | | | +--------+ + + + [...] W | | | | | | [place], | | | | | | [place] [address] | | | | | | [phone] | | | | | | | | +--------+ + + + + | 05/01/ | Procedure | Cardiology | | | | 2019 | visit | | | | +--------+ + + + + | 05/01/ | Office | Cardiology | Silvia | | | 2019 | Visit | | PARISA Vernon [address] | | | | | | [place], | | | | | | [place] [address] | | | | | | [phone] | | | | | | | | +--------+ + + + + | 05/21/ | Implant | Cardiology | Daljit Singletary, | Remote Device | 2019 | Monitor | | MD [address] [place] | Interrogation | | | | | [place], | (Primary Dx); | | | | | [place] [address] | Pacemaker; | | | | | [phone] | Sinoatrial node | | | | | | dysfunction (HCC) | | | | | | with symptomatic | | | | | | bradycardia | +--------+ + + + + documented as of this encounter Visit Diagnoses Not on filedocumented in this encounter"
--- OUTSIDE RECORDS SUMMARY | ~2020-04-15 | XMS | Encounter Summary ---
Demographics + + + | Address | [address] | | | [place] [address] | + + + | Home Phone [...] Team Providers + +------+ + | Care Cellophane Press Operator Name | Role | Phone | + +------+ + PCP | Unavailable | + +------+ + Encounter Details +--------+ + + + + | Date | Type | Department | Care Team | Description | +--------+ + + + + | 06/17/ | Hospital | [facility] | | | | 2008 | Encounter | MED CTR EMERGENCY | | | | | | [place] [address] | | | | | | [place] | | | | | | [address] | | | | | | [phone] | | | +--------+ + + + [...] | | | | | | [place] [address] | | | | | | [phone] | | | | | | | [...] | | | | | | [place] [address] | | | | | | [phone] | | | | | | | | +--------+ + + + + | 05/21/ | Implant | Cardiology | Daljit Singletary, | Remote Device | 2019 | Monitor | | [address] | Interrogation | | | | | [place], | (Primary Dx); | | | | | [place] [address] | Pacemaker; | | | | | [phone] | Sinoatrial node | | | | | | dysfunction (HCC) | | | | | | with symptomatic | | | | | | bradycardia | +--------+ + + + + documented as of this encounter Visit Diagnoses Not on filedocumented in this encounter"
--- OUTSIDE RECORDS SUMMARY | ~2020-04-15 | XMS | Encounter Summary ---
Demographics + + + | Address | [address] | | | [place] [address] | + + + | Home Phone [...] Providers + +------+ + | Care Financial Counselor Name | Role | Phone | [...] | 10/09/ | Telephone | [facility] | Michael Amanda, | Other | | 2012 | | [facility]IC[facility] [place] | DO [address] | | | | | [address] | [place] | | | | | [place] | [address] | | | | | [address] | | | | | | [phone] | | | +--------+ + + + [...] | | | | | | [place] [address] | | | | | | [phone] | | | | | | | [...] | | | | | | [place] [address] | | | | | | [phone] | | | | | | | | +--------+ + + + + | 05/21/ | Implant | Cardiology | Daljit Singletary, | Remote Device | 2019 | Monitor | | MD [address] [place] | Interrogation | | | | | [place], | (Primary Dx); | | | | | [place] [address] | Pacemaker; | | | | | [phone] | Sinoatrial node | | | | | | dysfunction (HCC) | | | | | | with symptomatic | | | | | | bradycardia | +--------+ + + + + documented as of this encounter Visit Diagnoses Not on filedocumented in this encounter"
--- OUTSIDE RECORDS SUMMARY | ~2020-04-15 | XMS | Encounter Summary ---
Demographics + + + | Address | [address] | | | [place] [address] | + + + | Home Phone [...] Team Providers + +------+ + | Care Airborne Weapons Technical Manager Name | Role | Phone | [...] | 06/17/ | Telephone | [facility] | [place]via, | Lab Order (due for | | 2015 | | CARDIOLOGY [address] | PARISA [place] [address] | fasting labs prior | | | | [place], | [place], | to appt) | | | | [place] [address] | [place] [address] | | | | | [phone] | [phone] | | | | | | | [...] | | | | | | [place], | | | | | | [place] [address] | | | | | | [phone] | | | | | | | | +--------+ + + + + | 05/01/ | Procedure | Cardiology | | | | 2019 | visit | | | | +--------+ + + + + | 05/01/ | Office | Cardiology | Silvia, | | | 2019 | Visit | | PARISA Vernon [address] | | | | | | [place], | | | | | | [place] [address] | | | | | | [phone] | | | | | | | | +--------+ + + + + | 05/21/ | Implant | Cardiology | Daljit Singletary, | Remote Device | 2019 | Monitor | | [address] [place] | Interrogation | | | | | [place], | (Primary Dx); | | | | | [place] [address] | Pacemaker; | | | | | [phone] | Sinoatrial node | | | | [...]
--- OUTSIDE RECORDS SUMMARY | ~2020-04-15 | XMS | Encounter Summary ---
Demographics + + + | Address | [address] | | | [place] [address] | + + + | Home Phone [...] + + + + | 06/23/ | [facility] | [facility] | Arthur Page MD | | | 2007 - | Encounter | MED CTR MED ONC | [address] [facility] | | | | | [address] [place] | [place] | | | 06/25/ | | [place] [address] | [address] | | | 2007 | | [phone] | | | +--------+ + + + [...] | | | | | | [place] [address] | | | | | | [phone] | | | | | | | [...] | | | | | | [place] [address] | | | | | | [phone] | | | | | | | | +--------+ + + + + | 05/21/ | Implant | Cardiology | Daljit Singletary, | Remote Device | 2019 | Monitor | | MD Sim [place] | Interrogation | | | | | [facility], | (Primary Dx); | | | | | [place] [address] | Pacemaker; | | | | | [phone] | Sinoatrial node | | | | | | dysfunction (HCC) | | | | | | with symptomatic | | | | | | bradycardia | +--------+ + + + + documented as of this encounter Visit Diagnoses Not on filedocumented in this encounter"
--- OUTSIDE RECORDS SUMMARY | ~2020-04-15 | XMS | Encounter Summary ---
Demographics + + + | Address | [address] | | | [place] [address] | + + + | Home Phone [...] + +------+ + | Care Supply Chain Technician Name | Role | Phone | [...] [address] | | | | | | [place], [place] | (Fax) | | | | | [address] | | | | | | [phone] | | | +--------+ + + + [...] | | | | | | [place] [address] | | | | | | [phone] | | | | | | | [...] | | | | | | [place] [address] | | | | | | [phone] | | | | | | | | +--------+ + + + + | 05/21/ | Implant | Cardiology | Daljit Singletary, | Remote Device | | 2019 | Monitor | | [address] [place] | Interrogation | | | | | [place], | (Primary Dx); | | | | | [place] [address] | Pacemaker; | | | | | [phone] | Sinoatrial node | | | | | | dysfunction (HCC) | | | | | | with symptomatic | | | | | | bradycardia | +--------+ + + + + documented as of this encounter Visit Diagnoses Not on filedocumented in this encounter"
--- OUTSIDE RECORDS SUMMARY | ~2020-04-15 | XMS | Encounter Summary ---
Demographics + + + | Address | [address] | | | [place] [address] | + + + | Home Phone [...] Providers + +------+ + | Care Public Service Administrator Name | Role | Phone | [...] + + | 06/06/ | Office | [facility] | [place]via, | Essential | | 2019 | Visit | CARDIOLOGY [address] | [place] [address] | hypertension | | | | [place], | [place], | (Primary Dx); | | | | [place] [address] | [place] [address] | Sinoatrial node | | | | [phone] | [phone] | dysfunction (HCC) | | | | | | with symptomatic | | | | | | bradycardia; | | | | | | Symptomatic PVCs; | | | | | | Tachycardia; | | | | | | Coronary artery | | | | | | disease involving | | | | | | [place] coronary | | | | | | artery of [place] | | | | | | heart [...] encounter Patient Instructions Patient Instructions Julia Allen, Funeral Service Apprentice - 06/06/2019 2:15 PM PDT1. Take a [...] of -critical coronary artery dise ase involving [place] coronary artery of [place] heart without angina pectoris, essential hype rtension, [...] was seen in the emergency department at [facility] in [place] due to chest pain, no medication changes at that time. On 06/02/2019 he was seen here in the [facility] department with chest pain, irregular heart [...] Preventative health care Coronary artery disease involving [place] coronary artery of [place] heart without angina pectoris Cannabis abuse, daily [...] 3RD DOSE, CALL 911 100 tablet 3 [place]-3 Fatty Acids (SALMON OIL-1000 PO) CAPS, one capsule by mouth daily twice daily ondansetron (ZOFRAN ODT) 4 mg disintegrating tablet Take 4 mg by mouth every 8 hours as needed for Nausea. ONE TOUCH DELICA LANCETS [facility] Check glucose as needed for hypoglycemia 100 [...] 47 06/02/[address] [facility] for emergency department visit o n 06/02/2019 which is summarized in the HPI. RESULTS- I reviewed reports from [facility]: Ct Abdomen Pelvis W Contrast Result [...] ASSESSMENT: 1. Non-critical Coronary artery disease involving [place] coronary artery of [place] heart [facility] angina pectoris: A.Normal exercise sestamibi stress test [...] performed by Dr Juan Diego Gambino at [facility] on 01/30/2013.Patient had spontaneous PVC'sfr om [...] to go back in 3 days to [place] for an attempt of ablation under general [...] normal stable device function. Estimated remaining [facility] taylor longevity is 3.5 years. [...] visit, or sooner with concerns. Julia Clemente, Funeral Service Apprentice am acting as a scribe on behalf of, and in the presenc e of PARISA Lomas. - Reji Church 06/06/2019 15:10 Janeen Clemente ARNP, personally performed the services described in this documentati on, as scribed in my presence and it is both accurate and complete. -PARISA Lomas 06/06/2019 Portions of this chart may have been created with [email or web address] voice recognition software. Occasi onal wrong-word or [...] | | | | | | [place] [address] | | | | | | [phone] | | | | | | | | +--------+ + + + + | 05/01/ | Procedure | Cardiology | | | 2019 | visit | | | | +--------+ + + + + | 05/01/ | Office | Cardiology | Silvia, | | | 2019 | Visit | | PARISA [place] [address] | | | | | | [place], | | | | | | [place] [address] | | | | | | [phone] | | | | | | | | +--------+ + + + + | 05/21/ | Implant | Cardiology | Sydni Singletary, | Remote Device | | 2019 | Monitor | | [address] [facility] | Interrogation | | | | | [place], | (Primary Dx); | | | | | [place] [address] | Pacemaker; | | | | | [phone] | Sinoatrial node | | | | [...] MD | | | | | | ([id number]) on 06/06/2019 | | | | | [...] + + | Coronary artery disease involving [place] coronary artery of [place] heart without | | angina pectoris | + + | Syncope, unspecified syncope type | + + | Ascending thoracic aortic aneurysm (HCC) Thoracic aneurysm without mention of rupture | + + | Hyperlipidemia, mixed Mixed hyperlipidemia | + + documented in this encounter
--- OUTSIDE RECORDS SUMMARY | ~2020-04-15 | XMS | Encounter Summary ---
Demographics + + + | Address | [address] | | | [place] [address] | + + + | Home Phone [...] Providers + +------+ + | Care Product Specialist Name | Role | Phone | + +------+ + | Kirk French MD | PCP | | + +------+ + Encounter Details +--------+ + + + + | Date | Type | Department | Care Team | Description | +--------+ + + + + | 07/21/ | Hospital | [facility] | Daljit Singletary, | Palpitations; | | 2018 | Encounter | MED CTR NUCLEAR | MD [address] [place] | Presence of | | | | MEDICINE [address] | [facility], | permanent cardiac | | | | [place], | [place] [address] | pacemaker; | | | | [address] | [phone] | Sinoatrial node | | | | [phone] | | dysfunction (HCC) | +--------+ + [...] | | | | | | [place], | | | | | | [place] [address] | | | | | | [phone] | | | | | | | | +--------+ + + + + | 05/01/ | Procedure | Cardiology | | | | 2019 | visit | | | | +--------+ + + + + | 05/01/ | Office | Cardiology | Silvia, | | | 2019 | Visit | | PARISA Vernon W | | | | | | [place], | | | | | | [place] [address] | | | | | | [phone] | | | | | | | | +--------+ + + + + | 05/21/ | Implant | Cardiology | SunshinecherelleDajlit, | Remote Device | | 2020 | Monitor | | [address] [facility] | Interrogation | | | | | [facility], | (Primary Dx); | | | | | [place] [address] | Pacemaker; | | | | | [phone] | Sinoatrial node | | | | [...] 08/25/2018 13:12 Wireless even study from | [facility] | | 07/21 until 08/22/2018. Baseline [...]
--- OUTSIDE RECORDS SUMMARY | ~2020-04-15 | XMS | Encounter Summary ---
Demographics + + + | Address | [address] | | | [place] [address] | + + + | Home Phone [...] Team Providers + +------+ + | Care Return To Service Inspector Name | Role | Phone | + +------+ + PCP | Unavailable | + +------+ + Encounter Details +--------+ + + + + | Date | Type | Department | Care Team | Description | +--------+ + + + + | 06/23/ | [facility] | [facility] | Arthur Page MD | | | 2007 - | Encounter | MED CTR MED ONC | [address] [facility] | | | | | [address] [place] | [place] | | | 06/25/ | | [place] [address] | [address] | | | 2007 | | [phone] | | | +--------+ + + + [...] W | | | | | | [place], | | | | | | [place] [address] | | | | | | [phone] | | | | | | | | +--------+ + + + + | 05/01/ | Procedure | Cardiology | | | | 2019 | visit | | | | +--------+ + + + + | 05/01/ | Office | Cardiology | Silvia | | | 2019 | Visit | | [address] [address] | | | | | | [place], | | | | | | [place] [address] | | | | | | [phone] | | | | | | | | +--------+ + + + + | 05/21/ | Implant | Cardiology | Daljit Singletary, | Remote Device | 2019 | Monitor | | MD [address] [place] | Interrogation | | | | | [place], | (Primary Dx); | | | | | [place] [address] | Pacemaker; | | | | | [phone] | Sinoatrial node | | | | | | dysfunction (HCC) | | | | | | with symptomatic | | | | | | bradycardia | +--------+ + + + + documented as of this encounter Visit Diagnoses Not on filedocumented in this encounter"
--- OUTSIDE RECORDS SUMMARY | ~2020-04-15 | XMS | Encounter Summary ---
Demographics + + + | Address | [address] | | | [place] [address] | + + + | Home Phone [...] Providers + +------+ + | Care Manager Infrastructure Name | Role | Phone | + [...] [address] | | | | | [address] | [place] | | | | | [phone] | [address] | | | | | | [phone] | | | | | | | [...] | | | | | | [place] [address] | | | | | | [phone] | | | | | | | [...] | | | | | | [place] [address] | | | | | | [phone] | | | | | | | | +--------+ + + + + | 05/21/ | Implant | Cardiology | SunshinecherelleDaljit, | Remote Device | | 2019 | Monitor | | [facility] | Interrogation | | | | | [place], | (Primary Dx); | | | | | [place] [address] | Pacemaker; | | | | | [phone] | Sinoatrial node | | | | [...]
--- OUTSIDE RECORDS SUMMARY | ~2020-04-15 | XMS | Encounter Summary ---
Demographics + + + | Address | [address] | | | [place] [address] | + + + | Home Phone [...] Providers + +------+ + | Care Legal Clerk Name | Role | Phone | [...] Provider Unknown | | | | | [place], [place] | [phone] | | | | | [address] | | | | | | [phone] | | | +--------+ + + + [...] + + + +---------+ + + | Meridian-3 Fatty | CAPS, one capsule by | [...] | | | | | | [place] [address] | | | | | | [phone] | | | | | | | | +--------+ + + + + | 05/01/ | Procedure | Cardiology | | | | 2019 | visit | | | | +--------+ + + + + | 05/01/ | Office | Cardiology | Silvia, | | | 2019 | Visit | | [address] W | | | | | | [place], | | | | | | [place] [address] | | | | | | [phone] | | | | | | | | +--------+ + + + + | 05/21/ | Implant | Cardiology | Daljit Singletary, | Remote Device | 2019 | Monitor | | [address] [place] | Interrogation | | | | | [place], | (Primary Dx); | | | | | [place] [address] | Pacemaker; | | | | | [phone] | Sinoatrial node | | | | [...]
--- OUTSIDE RECORDS SUMMARY | ~2020-04-15 | XMS | Encounter Summary ---
Demographics + + + | Address | [address] | | | [place] [address] | + + + | Home Phone [...] Team Providers + +------+ + | Care Dispatcher Service Chief Name | Role | Phone | [...] [address] | | | | | [place], | [place], | | | | | [place] [address] | [place] [address] | | | | | [phone] | [phone] | | | | | | | [...] W | | | | | | [place], | | | | | | [place] [address] | | | | | | [phone] | | | | | | | | +--------+ + + + + | 05/01/ | Procedure | Cardiology | | | | 2019 | visit | | | | +--------+ + + + + | 05/01/ | Office | Cardiology | Silvia, | | | 2019 | Visit | | [address] | | | | | | [place], | | | | | | [place] [address] | | | | | | [phone] | | | | | | | | +--------+ + + + + | 05/21/ | Implant | Cardiology | Daljit Singletary, | Remote Device | | 2019 | Monitor | | [address] [place] | Interrogation | | | | | [place], | (Primary Dx); | | | | | [place] [address] | Pacemaker; | | | | | [phone] | Sinoatrial node | | | | | | dysfunction (HCC) | | | | | | with symptomatic | | | | | | bradycardia | +--------+ + + + + documented as of this encounter Visit Diagnoses Not on filedocumented in this encounter"
--- OUTSIDE RECORDS SUMMARY | ~2020-04-15 | XMS | Encounter Summary ---
Demographics + + + | Address | [address] [place] [address] [address] | | | [place] [address] | + + + | Home Phone [...] [place] | | | | | [address] | | + + + + + Care Team Providers + +------+ + | Care Scenic Arts Supervisor Name | Role | Phone | [...] | | | | | Unintentiona | [address] | | | | | | l weight | Ave | | | | | | loss | [facility] [place] | | | | | | Abdominal | [address] | | | | | | cramping | Phone: | | | | | | Chronic | [phone] | | | | | | diarrhea | Fax: | | | | | | Rectal | [phone] | | | | | | bleeding [...] | | 2020 | | Center at [facility] [address] | [address] | | | | | [address] | [place], [place] | | | | | Mailcode: [place] | [address] | | | | | for Health and | [phone] | | | | | [facility], [address] | | | | | | [place], [place] | | | | | | [address] | | | | | | [phone] | | | +--------+ + + + [...]
--- OUTSIDE RECORDS SUMMARY | ~2020-04-15 | XMS | Encounter Summary ---
Demographics + + + | Address | [address] | | | [place] [address] | + + + | Home Phone [...] Providers + +------+ + | Care Technical Data Analyst Name | Role | Phone | [...] | | | | | | [place] [facility] [place], [place] | (Fax) | | | | | [address] | | | | | | [phone] | | | +--------+ + + + [...] | | | | | | [place] [address] | | | | | | [phone] | | | | | | | | +--------+ + + + + | 05/01/ | Procedure | Cardiology | | | | 2019 | visit | | | | +--------+ + + + + | 05/01/ | Office | Cardiology | Silvia, | | | 2019 | Visit | | PARISA Vernon [address] | | | | | | [place], | | | | | | [place] [address] | | | | | | [phone] | | | | | | | | +--------+ + + + + | 05/21/ | Implant | Cardiology | Daljit Singletary, | Remote Device | | 2019 | Monitor | | [address] [place] | Interrogation | | | | | [place], | (Primary Dx); | | | | | [place] [address] | Pacemaker; | | | | | [phone] | Sinoatrial node | | | | | | dysfunction (HCC) | | | | | | with symptomatic | | | | | | bradycardia | +--------+ + + + + documented as of this encounter Visit Diagnoses Not on filedocumented in this encounter"
--- OUTSIDE RECORDS SUMMARY | ~2020-04-15 | XMS | Encounter Summary ---
Demographics + + + | Address | [address] | | | [place] [address] | + + + | Home Phone [...] Providers + +------+ + | Care Channel Specialist Name | Role | Phone | [...] W | | | | | [place], | [place], | | | | | [place] [address] | [place] [address] | | | | | [phone] | [phone] | | | | | | | [...] | | | | | | [place] [address] | | | | | | [phone] | | | | | | | | +--------+ + + + + | 05/01/ | Procedure | Cardiology | | | | 2019 | visit | | | | +--------+ + + + + | 05/01/ | Office | Cardiology | Silvia | | | 2019 | Visit | | Janeen, REVENUE ACCOUNTANT [address] | | | | | | [place], | | | | | | [place] [address] | | | | | | [phone] | | | | | | | | +--------+ + + + + | 05/21/ | Implant | Cardiology | Daljit Singletary, | Remote Device | | 2020 | Monitor | | MD Sim [place] | Interrogation | | | | | [place], | (Primary Dx); | | | | | [place] [address] | Pacemaker; | | | | | [phone] | Sinoatrial node | | | | | | dysfunction (HCC) | | | | | | with symptomatic | | | | | | bradycardia | +--------+ + + + + documented as of this encounter Visit Diagnoses Not on filedocumented in this encounter"
--- OUTSIDE RECORDS SUMMARY | ~2020-04-15 | XMS | Encounter Summary ---
Demographics + + + | Address | [address] | | | [place] [address] | + + + | Home Phone [...] Team Providers + +------+ + | Care Recruitment Director Name | Role | Phone | [...] + | 01/24/ | Telephone | [facility] | Daljit Singletary, | Other | | 2019 | | CARDIOLOGY [address] | MD [address] [place] | | | | | [place], | [place], | | | | | [place] [address] | [place] [address] | | | | | [phone] | [phone] | | | | | | | [...] W | | | | | | [place], | | | | | | [place] [address] | | | | | | [phone] | | | | | | | | +--------+ + + + + | 05/01/ | Procedure | Cardiology | | | | 2019 | visit | | | | +--------+ + + + + | 05/01/ | Office | Cardiology | Silvia, | | | 2019 | Visit | | PARISA [address] | | | | | | [place], | | | | | | [place] [address] | | | | | | [phone] | | | | | | | | +--------+ + + + + | 05/21/ | Implant | Cardiology | Daljit Singletary, | Remote Device | | 2019 | Monitor | | [facility] | Interrogation | | | | | [place], | (Primary Dx); | | | | | [place] [address] | Pacemaker; | | | | | [phone] | Sinoatrial node | | | | | | dysfunction (HCC) | | | | | | with symptomatic | | | | | | bradycardia | +--------+ + + + + documented as of this encounter Visit Diagnoses Not on filedocumented in this encounter"
--- OUTSIDE RECORDS SUMMARY | ~2020-04-15 | XMS | Encounter Summary ---
Demographics + + + | Address | [address] | | | [place] [address] | + + + | Home Phone [...] Team Providers + +------+ + | Care Bevel Mill Operator Name | Role | Phone [...] | [address] [place] | [place] [address] | | | | | [address] | [phone] | | | | | [phone] | | | +--------+ + + + [...] | | | | | | [place] [address] | | | | | | [phone] | | | | | | | | +--------+ + + + + | 05/01/ | Procedure | Cardiology | | | | 2019 | visit | | | | +--------+ + + + + | 05/01/ | Office | Cardiology | Silvia, | | | 2019 | Visit | | PARISA [place] W | | | | | | [place], | | | | | | [place] [address] | | | | | | [phone] | | | | | | | | +--------+ + + + + | 05/21/ | Implant | Cardiology | Daljit Singletary, | Remote Device | 2019 | Monitor | | MD Sim [place] | Interrogation | | | | | [place], | (Primary Dx); | | | | | [place] [address] | Pacemaker; | | | | | [phone] | Sinoatrial node | | | | | | dysfunction (HCC) | | | | | | with symptomatic | | | | | | bradycardia | +--------+ + + + + documented as of this encounter Visit Diagnoses Not on filedocumented in this encounter"
--- OUTSIDE RECORDS SUMMARY | ~2020-04-15 | XMS | Encounter Summary ---
Demographics + + + | Address | [address] | | | [place] [address] | + + + | Home Phone [...] + +------+ + | Care Concrete Boom Operator Name | Role | Phone | [...] [place] | | | | | | [address] | | | | | | [phone] | | | +--------+ + + + [...] | | | | | | [place] [address] | | | | | | [phone] | | | | | | | | +--------+ + + + + | 05/01/ | Procedure | Cardiology | | | | 2019 | visit | | | | +--------+ + + + + | 05/01/ | Office | Cardiology | Silvia, | | | 2019 | Visit | | [address] | | | | | | [place], | | | | | | [place] [address] | | | | | | [phone] | | | | | | | | +--------+ + + + + | 05/21/ | Implant | Cardiology | Daljit Singletary, | Remote Device | 2019 | Monitor | | [address] [place] | Interrogation | | | | | [place], | (Primary Dx); | | | | | [place] [address] | Pacemaker; | | | | | [phone] | Sinoatrial node | | | | | | dysfunction (HCC) | | | | | | with symptomatic | | | | | | bradycardia | +--------+ + + + + documented as of this encounter Visit Diagnoses Not on filedocumented in this encounter"
--- OUTSIDE RECORDS SUMMARY | ~2020-04-15 | XMS | Encounter Summary ---
Demographics + + + | Address | [address] | | | [place] [address] | + + + | Home Phone [...] Team Providers + +------+ + | Care Documentation Improvement Specialist Name | Role | Phone [...] [place] | | | | | | [address] | | | | | | [phone] | | | +--------+ + + + [...] W | | | | | | [place], | | | | | | [place] [address] | | | | | | [phone] | | | | | | | | +--------+ + + + + | 05/01/ | Procedure | Cardiology | | | | 2019 | visit | | | | +--------+ + + + + | 05/01/ | Office | Cardiology | Silvia, | | | 2019 | Visit | | [address] | | | | | | [place], | | | | | | [place] [address] | | | | | | [phone] | | | | | | | | +--------+ + + + + | 05/21/ | Implant | Cardiology | Daljit Singletary, | Remote Device | | 2019 | Monitor | | [address] [facility] | Interrogation | | | | | [address] [place], | (Primary Dx); | | | | | [place] [address] | Pacemaker; | | | | | [phone] | Sinoatrial node | | | | | | dysfunction (HCC) | | | | | | with symptomatic | | | | | | bradycardia | +--------+ + + + + documented as of this encounter Visit Diagnoses Not on filedocumented in this encounter"
--- OUTSIDE RECORDS SUMMARY | ~2020-04-15 | XMS | Encounter Summary ---
Demographics + + + | Address | [address] | | | [place] [address] | + + + | Home Phone [...] Providers + +------+ + | Care Lining Strap Closer Name | Role | Phone | [...] | type | [address] | | | | | Procedures | ST [place] | [place], | | | | | [place]UP | [place], [place] | [place] [address] | | | | | | [address] | Phone: | | | | | | Phone: | [phone] | | | | | | [phone] | Fax: | | | | | | Fax: | [phone] | | | | | | [phone] | | +--------+ + + + + [...] | | | | CENTER [address] | [address] [place] | (Primary Dx) | | | | [place], [place] | [place] [address] | | | | | [address] | [phone] | | | | | [phone] | | | +--------+ + + + [...] cannot be sent through Care Everywhere.Angina, Stable (Nepalese)documented in this encounter Medications at Time of [...] + + + +---------+ + + | [place]-3 Fatty | CAPS, one capsule by [...] | | | | | | [place] [address] | | | | | | [phone] | | | | | | | | +--------+ + + + + | 05/01/ | Procedure | Cardiology | | | | 2019 | visit | | | | +--------+ + + + + | 05/01/ | Office | Cardiology | [place]via | | | 2019 | Visit | | [address] | | | | | | [place], | | | | | | [place] [address] | | | | | | [phone] | | | | | | | | +--------+ + + + + | 05/21/ | Implant | Cardiology | Daljit Singletary, | Remote Device | 2019 | Monitor | | [address] | Interrogation | | | | | [place], | (Primary Dx); | | | | | [place] [address] | Pacemaker; | | | | | [phone] | Sinoatrial node | | | | [...] | | | | HIREN WINKLER, ANGELA ([id number]) | | | | | | on [...] | | | | | | [employer] | | | | | [...] + | Performing | Address | City/State/[facility] | Phone Number | | Organization | | | | + + + + + | [facility] | [address] | [place] | [phone] | | [facility] | | [address] | | | - LABORATORY | | [...] + | [facility] | [address] | [place] | [phone] | | [facility] | | [address] | | | - LABORATORY | | [...] | | | | | | [employer] | | | | | [...] + | Performing | Address | City/State/[facility] | Phone Number | | Organization | | | | + + + + + | [facility] | [address] | [place] | [phone] | | [facility] | | [address] | | | - LABORATORY | | [...] | [address] MICHELLE | | | FRENCH | RATE,ESTIMATED | | MEDICAL | | | | mL/min/1.07q4Nwct than | | CENTER - | | [...] [address] | [place] | [phone] | | [facility] | | [address] | | | - LABORATORY | | [...] [address] | [place] | [phone] | | [facility] | | [address] | | | - LABORATORY | | [...] | | | | ANGELA MARADIAGA MD ([id number]) | | | | | | on [...]
--- OUTSIDE RECORDS SUMMARY | ~2020-04-15 | XMS | Encounter Summary ---
Demographics + + + | Address | [address] | | | [place] [address] | + + + | Home Phone [...] + +------+ + | Care Human Resources Designate Name | Role | Phone | + [...] | DISCLOSURE) | | | | [place], | [place], | | | | | [place] [address] | [place] [address] | | | | | [phone] | [phone] | | | | | | | [...] | | | | | | [place] [address] | | | | | | [phone] | | | | | | | [...] | | | | | | [place] [address] | | | | | | [phone] | | | | | | | | +--------+ + + + + | 05/21/ | Implant | Cardiology | Daljit Singletary, | Remote Device | | 2019 | Monitor | | [address] [facility] | Interrogation | | | | | [address] [place], | (Primary Dx); | | | | | [place] [address] | Pacemaker; | | | | | [phone] | Sinoatrial node | | | | | | dysfunction (HCC) | | | | | | with symptomatic | | | | | | bradycardia | +--------+ + + + + documented as of this encounter Visit Diagnoses Not on filedocumented in this encounter"
--- OUTSIDE RECORDS SUMMARY | ~2020-04-15 | XMS | Encounter Summary ---
Demographics + + + | Address | [address] | | | [place] [address] | + + + | Home Phone [...] Providers + +------+ + | Care Space Sciences Director Name | Role | Phone | [...] W | DISCLOSURE) | | | | [place], | [place], | | | | | [place] [address] | [place] [address] | | | | | [phone] | [phone] | | | | | | | [...] W | | | | | | [place], | | | | | | [place] [address] | | | | | | [phone] | | | | | | | | +--------+ + + + + | 05/01/ | Procedure | Cardiology | | | | 2019 | visit | | | | +--------+ + + + + | 05/01/ | Office | Cardiology | Silvia, | | | 2019 | Visit | | [address] | | | | | | [place], | | | | | | [place] [address] | | | | | | [phone] | | | | | | | | +--------+ + + + + | 05/21/ | Implant | Cardiology | Daljit Singletary, | Remote Device | | 2019 | Monitor | | [address] [facility] | Interrogation | | | | | [address] [place], | (Primary Dx); | | | | | [place] [address] | Pacemaker; | | | | | [phone] | Sinoatrial node | | | | | | dysfunction (HCC) | | | | | | with symptomatic | | | | | | bradycardia | +--------+ + + + + documented as of this encounter Visit Diagnoses Not on filedocumented in this encounter"
--- OUTSIDE RECORDS SUMMARY | ~2020-04-15 | XMS | Encounter Summary ---
Demographics + + + | Address | [address] | | | [place] [address] | + + + | Home Phone [...] Providers + +------+ + | Care System Designer Name | Role | Phone | + +------+ + PCP | Unavailable | + +------+ + Encounter Details +--------+ + + + + | Date | Type | Department | Care Team | Description | +--------+ + + + + | 09/24/ | [facility] | [facility] | Evan Gandara MD | | | 2005 | Encounter | MED CTR XRAY [address] | [address] [facility] | | | | | [place] | [place] | | | | | [place] [address] | [id number] | | | | | [phone] | | | +--------+ + + + [...] | | | | | | [place], | | | | | | [place] [address] | | | | | | [phone] | | | | | | | | +--------+ + + + + | 05/01/ | Procedure | Cardiology | | | | 2019 | visit | | | | +--------+ + + + + | 05/01/ | Office | Cardiology | Silvia, | | | 2019 | Visit | | [address] | | | | | | [place], | | | | | | [place] [address] | | | | | | [phone] | | | | | | | | +--------+ + + + + | 05/21/ | Implant | Cardiology | Daljit Singletary, | Remote Device | 2019 | Monitor | | MD Sim [address] [place] | Interrogation | | | | | [place], | (Primary Dx); | | | | | [place] [address] | Pacemaker; | | | | | [phone] | Sinoatrial node | | | | | | dysfunction (HCC) | | | | | | with symptomatic | | | | | | bradycardia | +--------+ + + + + documented as of this encounter Visit Diagnoses Not on filedocumented in this encounter"
--- OUTSIDE RECORDS SUMMARY | ~2020-04-15 | XMS | Encounter Summary ---
Demographics + + + | Address | [address] | | | [place] [address] | + + + | Home Phone [...] Providers + +------+ + | Care Bobbin Washer Name | Role | Phone | + +------+ + PCP | Unavailable | + +------+ + Encounter Details +--------+ + + + + | Date | Type | Department | Care Team | Description | +--------+ + + + + | 03/08/ | [facility] | [facility] | Emmanuel Daniel MD | | | 2006 | Encounter | MED CTR GENERIC OP | [address] | | | | | CONV DEPT [address] | [address] [place] | | | | | [place], | [address] | | | | | [place] [address] | | | | | | [phone] | | | +--------+ + + + [...] W | | | | | | [place], | | | | | | [place] [address] | | | | | | [phone] | | | | | | | | +--------+ + + + + | 05/01/ | Procedure | Cardiology | | | | 2019 | visit | | | | +--------+ + + + + | 05/01/ | Office | Cardiology | Silvia, | | | 2019 | Visit | | [address] | | | | | | [place], | | | | | | [place] [address] | | | | | | [phone] | | | | | | | | +--------+ + + + + | 05/21/ | Implant | Cardiology | Daljit Singletary, | Remote Device | 2019 | Monitor | | [address] [place] | Interrogation | | | | | [place], | (Primary Dx); | | | | | [place] [address] | Pacemaker; | | | | | [phone] | Sinoatrial node | | | | | | dysfunction (HCC) | | | | | | with symptomatic | | | | | | bradycardia | +--------+ + + + + documented as of this encounter Visit Diagnoses Not on filedocumented in this encounter"
--- OUTSIDE RECORDS SUMMARY | ~2020-04-15 | XMS | Encounter Summary ---
Demographics + + + | Address | [address] | | | [place] [address] | + + + | Home Phone [...] Team Providers + +------+ + | Care Zigzagger Name | Role | Phone | + [...] 2019 | | GASTROENTEROLOGY | MD [address] | | | | | [address] | [place] [place] | | | | | [address] [place] | [place] [address] | | | | | [address] | | | | | | [phone] | | | +--------+ + + + [...] | | | | | | [place] [address] | | | | | | [phone] | | | | | | | [...] | | | | | | [place] [address] | | | | | | [phone] | | | | | | | | +--------+ + + + + | 06/30/ | Implant | Cardiology | Daljit Singletary, | Remote Device | | 2019 | Monitor | | [facility] | Interrogation | | | | | [address] [place], | (Primary Dx); | | | | | [place] [address] | Pacemaker; | | | | | [phone] | Sinoatrial node | | | | | | dysfunction (HCC) | | | | | | with symptomatic | | | | | | bradycardia | +--------+ + + + + documented as of this encounter Visit Diagnoses Not on filedocumented in this encounter"
--- OUTSIDE RECORDS SUMMARY | ~2020-04-15 | XMS | Encounter Summary ---
Demographics + + + | Address | [address] [place] [address] [address] | | | [place] [address] | + + + | Home Phone [...] [place] | | | | | [address] | | + + + + + Care Team Providers + +------+ + | Care Building Pressure Washer Name | Role | Phone | [...] | Center at [facility] [address] | Gastroenterology | Gastroenterology | | | | [address] [place] | | | | | | Mailcode: [place] | | | | | | [facility] and | | | | | | [place] [address] | | | | | | [place], [place] | | | | | | [address] | | | | | | [phone] | | | +--------+ + + + [...]
--- OUTSIDE RECORDS SUMMARY | ~2020-04-15 | XMS | Encounter Summary ---
Demographics + + + | Address | [address] | | | [place] [address] | + + + | Home Phone [...] Providers + +------+ + | Care Middleware Developer Name | Role | Phone | [...] 2012 | | CARDIOLOGY [address] | TOURING PRODUCTION MANAGER [address] [place] | faxed) | | | | [place], | [place] [facility] [place] | | | | | [place] [address] | [address] | | | | | [phone] | | | +--------+ + + + [...] | | | | | | [place], | | | | | | [place] [address] | | | | | | [phone] | | | | | | | | +--------+ + + + + | 05/01/ | Procedure | Cardiology | | | | 2019 | visit | | | | +--------+ + + + + | 05/01/ | Office | Cardiology | Silvia, | | | 2019 | Visit | | [address] | | | | | | [place], | | | | | | [place] [address] | | | | | | [phone] | | | | | | | | +--------+ + + + + | 05/21/ | Implant | Cardiology | Daljit Singletary, | Remote Device | | 2019 | Monitor | | [facility] | Interrogation | | | | | [address] [place], | (Primary Dx); | | | | | [place] [address] | Pacemaker; | | | | | [phone] | Sinoatrial node | | | | | | dysfunction (HCC) | | | | | | with symptomatic | | | | | | bradycardia | +--------+ + + + + documented as of this encounter Visit Diagnoses Not on filedocumented in this encounter"
--- OUTSIDE RECORDS SUMMARY | ~2020-04-15 | XMS | Encounter Summary ---
Demographics + + + | Address | [address] | | | [place] [address] | + + + | Home Phone [...] Team Providers + +------+ + | Care Subcontract Administrator Name | Role | Phone | [...] | | | CENTER [address] [place] | [address] | | | | | [place] | [place] | | | | | [address] | [address] | | | | | [phone] | | | +--------+ + + + [...] + + + +---------+ + + | S[place]fr[place]-3 Fatty | CAPS, one capsule by | [...] | | | | | | | seneca-cayuga coronary | | | | | | | artery of seneca-cayuga | | | | | | | [...] | | | | | | [place], | | | | | | [place] [address] | | | | | | [phone] | | | | | | | | +--------+ + + + + | 05/01/ | Procedure | Cardiology | | | | 2019 | visit | | | | +--------+ + + + + | 05/01/ | Office | Cardiology | Silvia, | | | 2019 | Visit | | [address] | | | | | | [place], | | | | | | [place] [address] | | | | | | [phone] | | | | | | | | +--------+ + + + + | 05/21/ | Implant | Cardiology | Daljit Singletary, | Remote Device | 2019 | Monitor | | MD Sim [address] [place] | Interrogation | | | | | [place], | (Primary Dx); | | | | | [place] [address] | Pacemaker; | | | | | [phone] | Sinoatrial node | | | | [...] [address] | [place] | [phone] | | [facility] | | [address] | | | - LABORATORY | | [...] + | [address] | [address] | [place] | [phone] | | [facility] | | [address] | | | - LABORATORY | | [...] use as of January 18, | | [facility] | | | | 2019. [...] [address] | [place] | [phone] | | [facility] | | [address] | | | - LABORATORY | | [...] | 0.92 | 0.70 - 1.30 | [facility] | | | | | mg/dL | [facility] | | | | | | MEDICAL | | | | | | CENTER - | | | | | | LABORATORY | | + + + + + + | eGFR if not | >60Comment: GLOMERULAR | >=60 | [facility] | | | | FILTRATION | mL/min/1.73m2 | [facility] | | | [place] | RATE,ESTIMATED | | MEDICAL | | | | mL/min/1.65e0Bvnc than | | CENTER - | | [...] ST. | [address] | [place], [place] | [phone] | | [facility] | | [address] | | | - LABORATORY | | [...] [address] | [place] | [phone] | | [facility] | | [address] | | | - LABORATORY | | [...] [address] | [place] | [phone] | | [facility] | | [address] | | | - LABORATORY | | [...] | | | | ANGELA MARADIAGA MD ([address]) | | | | | | on [...] | | | | | Patient Address: [address] [place] [address] | | | | | | | [place] [address], | | | | | | + + + +------+---+---+ +---+---+ | | | +---+---+ documented in this encounter
--- OUTSIDE RECORDS SUMMARY | ~2020-04-15 | XMS | Encounter Summary ---
Demographics + + + | Address | [address] | | | [place] [address] | + + + | Home Phone [...] Providers + +------+ + | Care Banquet Server On Call Name | Role | Phone | + [...] Refill | | 2014 | | [facility] | DO [address] | | | | | [address] | [place] | | | | | [place], [place] | [address] | | | | | [address] | | | | | | [phone] | | | +--------+--------+ + + + [...] W | | | | | | [place], | | | | | | [place] [address] | | | | | | [phone] | | | | | | | | +--------+ + + + + | 05/01/ | Procedure | Cardiology | | | | 2019 | visit | | | | +--------+ + + + + | 05/01/ | Office | Cardiology | Silvia, | | | 2019 | Visit | | [address] | | | | | | [place], | | | | | | [place] [address] | | | | | | [phone] | | | | | | | | +--------+ + + + + | 05/21/ | Implant | Cardiology | Daljit Singletary, | Remote Device | | 2019 | Monitor | | [address] [place] | Interrogation | | | | | [place], | (Primary Dx); | | | | | [place] [address] | Pacemaker; | | | | | [phone] | Sinoatrial node | | | | | | dysfunction (HCC) | | | | | | with symptomatic | | | | | | bradycardia | +--------+ + + + + documented as of this encounter Visit Diagnoses Not on filedocumented in this encounter"
--- OUTSIDE RECORDS SUMMARY | ~2020-04-15 | XMS | Encounter Summary ---
Demographics + + + | Address | [address] | | | [place] [address] | + + + | Home Phone [...] Providers + +------+ + | Care Manager Billing Name | Role | Phone | + +------+ + | Kirk French MD | PCP | | + +------+ + Encounter Details +--------+ + + + + | Date | Type | Department | Care Team | Description | +--------+ + + + + | 06/03/ | Hospital | [facility] | Conversion | Back pain, | | 2014 | Encounter | CONVERSION DEP [address] | Transaction, | unspecified location | | | | [address] | Provider Unknown | | | | | [place], [place] | [phone] | | | | | [phone] | (Fax) | | | | | [phone] | | | +--------+ + + + [...] | | | | | | | #[id number], exp 07/2016 | | | | | [...] | | | | | | [place] [address] | | | | | | [phone] | | | | | | | | +--------+ + + + + | 05/01/ | Procedure | Cardiology | | | | 2019 | visit | | | | +--------+ + + + + | 05/01/ | Office | Cardiology | Sil[place], | | | 2019 | Visit | | [facility] [address] | | | | | | [place], | | | | | | [place] [address] | | | | | | [phone] | | | | | | | | +--------+ + + + + | 05/21/ | Implant | Cardiology | Daljit Singletary, | Remote Device | | 2019 | Monitor | | [address] [facility] | Interrogation | | | | | [place], | (Primary Dx); | | | | | [place] [address] | Pacemaker; | | | | | [phone] | Sinoatrial node | | | | [...]
--- OUTSIDE RECORDS SUMMARY | ~2020-04-15 | XMS | Encounter Summary ---
Demographics + + + | Address | [address] | | | [place] [address] | + + + | Home Phone [...] + + | 10/25/ | Telephone | [facility] | Silvia, | Other (patient has | | 2013 | | CARDIOLOGY [address] | Janeen PERSONAL DEVELOPMENT EDUCATOR [address] | changed his mind) | | | | [place], | [place], | | | | | [place] [address] | [place] [address] | | | | | [phone] | [phone] | | | | | | | [...] W | | | | | | [place], | | | | | | [place] [address] | | | | | | [phone] | | | | | | | | +--------+ + + + + | 05/01/ | Procedure | Cardiology | | | | 2019 | visit | | | | +--------+ + + + + | 05/01/ | Office | Cardiology | Silvia, | | | 2019 | Visit | | PARISA Vernon [address] | | | | | | [place], | | | | | | [place] [address] | | | | | | [phone] | | | | | | | | +--------+ + + + + | 05/21/ | Implant | Cardiology | Daljit Singletary, | Remote Device | | 2019 | Monitor | | [address] [facility] | Interrogation | | | | | [place], | (Primary Dx); | | | | | [place] [address] | Pacemaker; | | | | | [phone] | Sinoatrial node | | | | | | dysfunction (HCC) | | | | | | with symptomatic | | | | | | bradycardia | +--------+ + + + + documented as of this encounter Visit Diagnoses Not on filedocumented in this encounter"
--- OUTSIDE RECORDS SUMMARY | ~2020-04-15 | XMS | Encounter Summary ---
Demographics + + + | Address | [address] | | | [place] [address] | + + + | Home Phone [...] Providers + +------+ + | Care Shearing Shed Worker Name | Role | Phone | + +------+ + | Michael Amanda DO | PCP | | + +------+ + Encounter Details +--------+ + + + + | Date | Type | Department | Care Team | Description | +--------+ + + + + | 07/25/ | Abstract | [facility] [place] [facility] | Michael Amanda, | | | 2013 | | [facility] | DO [address] | | | | | [address] | [place] | | | | | [place] | [address] | | | | | [address] | | | | | | [phone] | | | +--------+ + + + [...] | | | | | | [place] [address] | | | | | | [phone] | | | | | | | | +--------+ + + + + | 05/01/ | Procedure | Cardiology | | | | 2019 | visit | | | | +--------+ + + + + | 05/01/ | Office | Cardiology | Silvia, | | | 2019 | Visit | | PARISA Vernon [address] | | | | | | [place], | | | | | | [place] [address] | | | | | | [phone] | | | | | | | | +--------+ + + + + | 05/21/ | Implant | Cardiology | Daljit Singletary, | Remote Device | | 2019 | Monitor | | [address] [place] | Interrogation | | | | | [place], | (Primary Dx); | | | | | [place] [address] | Pacemaker; | | | | | [phone] | Sinoatrial node | | | | | | dysfunction (HCC) | | | | | | with symptomatic | | | | | | bradycardia | +--------+ + + + + documented as of this encounter Visit Diagnoses Not on filedocumented in this encounter"
--- OUTSIDE RECORDS SUMMARY | ~2020-04-15 | XMS | Encounter Summary ---
Demographics + + + | Address | [address] | | | [place] [address] | + + + | Home Phone [...] Providers + +------+ + | Care Circuit Breaker Assembler Name | Role | Phone | + +------+ + | Kirk French MD | PCP | | + +------+ + Encounter Details +--------+ + + + + | Date | Type | Department | Care Team | Description | +--------+ + + + + | 12/24/ | Anesthesia | [facility] | Jarett Barakat | | | 2018 | Event | MED CTR MP INTRA OP | P, MD [address] | | | | | [address] | [place], [place] | | | | | [place], [place] | [address] | | | | | [address] | [phone] | | | | | [phone] | | | | | | | Arthur Wesley, | | | | | | [address] | | | | | | [place], [place] | | | | | | [address] | | | | | | | [...] 12/24/17 1435 by | | eral | [id number] catheter system; | Desmond Teresa RN | [...] | | | | | | [place] [address] | | | | | | [phone] | | | | | | | | +--------+ + + + + | 05/01/ | Procedure | Cardiology | | | | 2019 | visit | | | | +--------+ + + + + | 05/01/ | Office | Cardiology | [place]via | | | 2019 | Visit | | Janeen, CONCRETE PILE DRIVER OPERATOR [address] | | | | | | [place], | | | | | | [place] [address] | | | | | | [phone] | | | | | | | | +--------+ + + + + | 05/21/ | Implant | Cardiology | Daljit Singletary, | Remote Device | | 2020 | Monitor | | [address] [place] | Interrogation | | | | | [place], | (Primary Dx); | | | | | [place] [address] | Pacemaker; | | | | | [phone] | Sinoatrial node | | | | [...]
--- OUTSIDE RECORDS SUMMARY | ~2020-04-15 | XMS | Encounter Summary ---
Demographics + + + | Address | [address] | | | [place] [address] | + + + | Home Phone [...] Providers + +------+ + | Care Welt Slasher Name | Role | Phone | + +------+ + PCP | Unavailable | + +------+ + Encounter Details +--------+ + + + + | Date | Type | Department | Care Team | Description | +--------+ + + + + | 05/28/ | [facility] | [facility] | Evan Gandara MD | | | 2008 | Encounter | MED CTR LABORATORY | [address] [facility] | | | | | [address] [place] [address] | [place] | | | | | [place] | [address] | | | | | [address] | | | | | | [phone] | | | +--------+ + + + [...] | | | | | | [place] [address] | | | | | | [phone] | | | | | | | [...] | | | | | | [place] [address] | | | | | | [phone] | | | | | | | | +--------+ + + + + | 05/21/ | Implant | Cardiology | Daljit Singletary, | Remote Device | 2019 | Monitor | | MD [address] [place] | Interrogation | | | | | [place], | (Primary Dx); | | | | | [place] [address] | Pacemaker; | | | | | [phone] | Sinoatrial node | | | | | | dysfunction (HCC) | | | | | | with symptomatic | | | | | | bradycardia | +--------+ + + + + documented as of this encounter Visit Diagnoses Not on filedocumented in this encounter"
--- OUTSIDE RECORDS SUMMARY | ~2020-04-15 | XMS | Encounter Summary ---
Demographics + + + | Address | [address] | | | [place] [address] | + + + | Home Phone [...] Team Providers + +------+ + | Care Jawbone Breaker Name | Role | Phone | [...] + | 06/23/ | Office | [facility] | [place], | Ascending thoracic | | 2016 | Visit | CARDIOLOGY [address] | PARISA Vernon [address] | aortic aneurysm | | | | [place], | [place], | ([facility]) (Primary Dx); | | | | [place] [address] | [place] [address] | Coronary artery | | | | [phone] | [phone] | disease involving | | | | | | [place] coronary | | | | | | artery of [place] | | | | | | heart [...] in office in 6 months. hgabby, Janeen, INSTRUMENT FITTER - 06/23/2016 12:45 PM PDT PATIENT NAME: Moe Sanchez : 1960: AGE: 56 y.o. PRIMARY CARE: Kirk French MD OUTPATIENT FOLLOW UP VISIT Date of Service: 06/23/2016 HISTORY OF PRESENT ILLNESS: Moe Sanchez is a 56 y.o. 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 Non-critical Coronary artery disease involving [place] coronary artery of [place] heart [facility] angina pectoris: A. Normal exercise sestamibi [...] pain. He is in class I-II of [employer] n functional class. There are [...] to go back in 3 days to [place] for an attempt of ablation under general [...] this chart may have been created with [employer] voice recognition software. Occasi onal wrong-word or [...] | | | | | | [place] [address] | | | | | | [phone] | | | | | | | [...] | | | | | | [place] [address] | | | | | | [phone] | | | | | | | | +--------+ + + + + | 05/21/ | Implant | Cardiology | SunshinecherelleSydni, | Remote Device | | 2019 | Monitor | | [address] [facility] | Interrogation | | | | | [place], | (Primary Dx); | | | | | [place] [address] | Pacemaker; | | | | | [phone] | Sinoatrial node | | | | [...] the | | | | PDT | [place] coronary | results section. | | | | | artery of [place] | | | | | | heart [...] MD | | | | | | ([id number]) on 06/23/2016 | | | | | [...] + + | Coronary artery disease involving [place] coronary artery of [place] heart without | | angina pectoris | [...]
--- OUTSIDE RECORDS SUMMARY | ~2020-04-15 | XMS | Encounter Summary ---
Demographics + + + | Address | [address] | | | [place] [address] | + + + | Home Phone [...] Providers + +------+ + | Care Diamond Driller Name | Role | Phone | + +------+ + PCP | Unavailable | + +------+ + Encounter Details +--------+ + + + + | Date | Type | Department | Care Team | Description | +--------+ + + + + | 02/28/ | [facility] | [facility] | Geri Angel, | | | 2011 | Encounter | MED CTR XRAY [address] | ACCOUNTING ADMINISTRATIVE ASSISTANT [address] [place] | | | | | [place] | [address] [place] | | | | | [place] [address] | [address] | | | | | [phone] | | | +--------+ + + + [...] | | | | | [place], | | | | | | [place] [address] | | | | | | [phone] | | | | | | | | +--------+ + + + + | 05/01/ | Procedure | Cardiology | | | | 2019 | visit | | | | +--------+ + + + + | 05/01/ | Office | Cardiology | Silvia, | | | 2019 | Visit | | PARISA Vernon [address] | | | | | | [place], | | | | | | [place] [address] | | | | | | [phone] | | | | | | | | +--------+ + + + + | 05/21/ | Implant | Cardiology | Daljit Singletary, | Remote Device | | 2019 | Monitor | | [address] [place] | Interrogation | | | | | [place], | (Primary Dx); | | | | | [place] [address] | Pacemaker; | | | | | [phone] | Sinoatrial node | | | | [...] [facility] Diagnostic Imaging Department | [facility] | | [address] [facility] | [facility] | | LEFT HEART CATHETERIZATION | [facility] | | REPORT 02/29/2012 HEMODYNAMICS: Aortic pressure [...] was taken to | | | Cardiac Personnel Arbitrator. He was prepared and draped in the usual fashion | | | under a sterile technique and local anesthesia, percutaneous access | | | was obtained using #6- Swiss sheath in the right femoral artery. | | | Right heart cath was not performed in this patient. Left | | | ventriculography was performed using #6-Swiss pigtail catheter. | | | The selective coronary angiography were then performed in several | | | sagittal and oblique projection using the 6-Swiss JL 4 and #6 Swiss | | | 3DRC diagnostic catheters. The [...] Transcribed | | | Date/Time: 02/29/2012 09:09 Oil Expeller: | | | <Electronically Signed by Daljit Singletary MD [facility]> 02/29/12 | | | 1002 | | + + + + + | Procedure Note | + + | Kalpesh Brown Conversion - 12/29/2013 5:04 PM [facility] | | Diagnostic Imaging Department | | [address] [facility] | | | | | | [...] patient was taken to Cardiac | | Personnel Arbitrator. He was prepared and draped in the usual fashion under a sterile | | technique and local anesthesia, percutaneous access was obtained using #6- | | Swiss sheath in the right femoral artery. Right heart cath was not performed | | in this patient. Left ventriculography was performed using #6-Swiss pigtail | | catheter. The selective coronary angiography were then performed in several | | sagittal and oblique projection using the 6-Swiss JL 4 and #6 Swiss 3DRC | | diagnostic catheters. The patient [...] | Transcribed Date/Time: 02/29/2012 09:09 | | Oil Expeller: | | <Electronically Signed by Daljit Singletary MD [facility]> 02/29/12 1002 | + + + [...]
--- OUTSIDE RECORDS SUMMARY | ~2020-04-15 | XMS | Encounter Summary ---
Demographics + + + | Address | [address] | | | [place] [address] | + + + | Home Phone [...] Providers + +------+ + | Care Parts Runner Name | Role | Phone | [...] loss | [address] | [address], | | | | | Anxiety | [address] | [address] | | | | | disorder, | 101 | [place], | | | | | unspecified | [place], [place] | [place] [address] | | | | | Chronic | [address] | Phone: | | | | | pain | Phone: | [phone] | | | | | syndrome | [phone] | Fax: | | | | | Procedures | Fax: | [phone] | | | | | office visit | [phone] | | +--------+--------+ + + + + Encounter Details +--------+---------+ + + + | Date | Type | Department | Care Team | Description | +--------+---------+ + + + | 12/26/ | Office | [facility] | Emmanuel Daniel MD | Functional diarrhea | | 2019 | Visit | GASTROENTEROLOGY | [address], [place] | (Primary Dx); | | | | [address] [place] | [address] [place], [place] | Gastrointestinal | | | | [address] [place], [place] | [address] | hemorrhage | | | | [address] | | associated with | | | | [phone] | | anorectal source; | | | [...] | | | | | | [place] [address] | | | | | | [phone] | | | | | | | | +--------+ + + + + | 05/01/ | Procedure | Cardiology | | | | 2019 | visit | | | | +--------+ + + + + | 05/01/ | Office | Cardiology | Silvia, | | | 2019 | Visit | | [place] [address] | | | | | | [place], | | | | | | [place] [address] | | | | | | [phone] | | | | | | | | +--------+ + + + + | 05/21/ | Implant | Cardiology | Daljit Singletary, | Remote Device | | 2019 | Monitor | | [address] [facility] | Interrogation | | | | | [place], | (Primary Dx); | | | | | [place] [address] | Pacemaker; | | | | | [phone] | Sinoatrial node | | | | [...]
--- OUTSIDE RECORDS SUMMARY | ~2020-04-15 | XMS | Encounter Summary ---
Demographics + + + | Address | [address] | | | [place] [address] | + + + | Home Phone [...] Team Providers + +------+ + | Care Tap Grinder Name | Role | Phone | [...] + + | 08/23/ | Telephone | [facility] | AnshujohnsoncherelleDaljit, | Other (edema is | | 2015 | | CARDIOLOGY [address] | MD [address] | blood clots) | | | | [place], | [place], | | | | | [place] [address] | [place] [address] | | | | | [phone] | [phone] | | | | | | | [...] | | | | | | [place] [address] | | | | | | [phone] | | | | | | | | +--------+ + + + + | 05/01/ | Procedure | Cardiology | | | | 2019 | visit | | | | +--------+ + + + + | 05/01/ | Office | Cardiology | Silvia, | | | 2019 | Visit | | [place] [address] | | | | | | [place], | | | | | | [place] [address] | | | | | | [phone] | | | | | | | | +--------+ + + + + | 05/21/ | Implant | Cardiology | Daljit Singletary, | Remote Device | | 2020 | Monitor | | [facility] | Interrogation | | | | | [place] [place], | (Primary Dx); | | | | | [place] [address] | Pacemaker; | | | | | [phone] | Sinoatrial node | | | | | | dysfunction (HCC) | | | | | | with symptomatic | | | | | | bradycardia | +--------+ + + + + documented as of this encounter Visit Diagnoses Not on filedocumented in this encounter"
--- OUTSIDE RECORDS SUMMARY | ~2020-04-15 | XMS | Encounter Summary ---
Demographics + + + | Address | [address] | | | [place] [address] | + + + | Home Phone [...] Providers + +------+ + | Care Paper Sorter Name | Role | Phone | [...] + | 03/24/ | Telephone | [facility] | [place], | Other (chest pain) | | 2018 | | CARDIOLOGY [address] | [place] [address] | | | | | [place], | [place], | | | | | [place] [address] | [place] [address] | | | | | [phone] | [phone] | | | | | | | [...] | | | | | | [place] [address] | | | | | | [phone] | | | | | | | [...] | | | | | | [place] [address] | | | | | | [phone] | | | | | | | | +--------+ + + + + | 05/21/ | Implant | Cardiology | Daljit Singletary, | Remote Device | 2019 | Monitor | | [address] | Interrogation | | | | | [place], | (Primary Dx); | | | | | [place] [address] | Pacemaker; | | | | | [phone] | Sinoatrial node | | | | | | dysfunction (HCC) | | | | | | with symptomatic | | | | | | bradycardia | +--------+ + + + + documented as of this encounter Visit Diagnoses Not on filedocumented in this encounter"
--- OUTSIDE RECORDS SUMMARY | ~2020-04-15 | XMS | Encounter Summary ---
Demographics + + + | Address | [address] | | | [place] [address] | + + + | Home Phone [...] Providers + +------+ + | Care Manufacturing Plant Technician Name | Role | Phone [...] W | Dx) | | | | KINGMAN [address] | [address] [place] | | | | | [place], [place] | [place] [address] | | | | | [address] | [phone] | | | | | [phone] | | | +--------+ + + + [...] + + +---------+ + + | [place]-3 Fatty | CAPS, one capsule by | [...] W | | | | | | [place], | | | | | | [place] [address] | | | | | | [phone] | | | | | | | | +--------+ + + + + | 05/01/ | Procedure | Cardiology | | | | 2019 | visit | | | | +--------+ + + + + | 05/01/ | Office | Cardiology | Silvia, | | | 2019 | Visit | | PARISA [place] [address] | | | | | | [place], | | | | | | [place] [address] | | | | | | [phone] | | | | | | | | +--------+ + + + + | 05/21/ | Implant | Cardiology | Daljit Singletary, | Remote Device | | 2019 | Monitor | | [address] | Interrogation | | | | | [place], | (Primary Dx); | | | | | [place] [address] | Pacemaker; | | | | | [phone] | Sinoatrial node | | | | [...] W?MRN: | | | | | | [id number] | | | [id number] | | | his | | | [...] | | | ent/60 | | | [id number] | | | -5586- | | | [...] | | | St. | | | [place] | | | y H. | | [...] | | | graft | | | Feilce | | | 12, | | | 2018 | | | [facility] | | [facility] | | | [place] | | | y H. | | [...] | | | St. | | | [place] | | | y H. | | [...] | | | St. | | | [place] | | | y H. | | [...] | | | St. | | | [place] | | | y | | | [...] | | | ext. | | | [id number] | | | or go | | [...] [address] | [place] | [phone] | | [facility] | | [address] | | | - LABORATORY | | [...] ST. | [address] | [place], [place] | [phone] | | [facility] | | [address] | | | - LABORATORY | | [...] | | | FILTRATION | mL/min/1.73m2 | [facility] | | | P[place] ISLANDER | RATE,ESTIMATED | | MEDICAL | | | | mL/min/1.51e5Tpdo than | | CENTER - | | [...] + | [facility] | [address] | [place] | [phone] | | [facility] | | [address] | | | - LABORATORY | | [...] [address] | [place] | [phone] | | [facility] | | [address] | | | - LABORATORY | | | | + + + + + documented in this encounter Visit Diagnoses + + | Diagnosis | + + | Bronchitis - Primary Bronchitis, not specified as acute or chronic | + + documented in this encounter"
--- OUTSIDE RECORDS SUMMARY | ~2020-04-15 | XMS | Encounter Summary ---
Demographics + + + | Address | [address] | | | [place] [address] | + + + | Home Phone [...] Providers + +------+ + | Care Studio Technician Name | Role | Phone | + +------+ + PCP | Unavailable | + +------+ + Encounter Details +--------+ + + + + | Date | Type | Department | Care Team | Description | +--------+ + + + + | 02/07/ | [facility] | [facility] | Unknown, | | | 1995 | Encounter | MED CTR XRAY [address] | MD Stefany . | | | | | [place] | | | | | | [place] [address] | (Fax) | | | | | [phone] | | | +--------+ + + + [...] | | | | | | [place] [address] | | | | | | [phone] | | | | | | | | +--------+ + + + + | 05/01/ | Procedure | Cardiology | | | | 2019 | visit | | | | +--------+ + + + + | 05/01/ | Office | Cardiology | Silvia, | | | 2019 | Visit | | PARISA Vernon [address] | | | | | | [place], | | | | | | [place] [address] | | | | | | [phone] | | | | | | | | +--------+ + + + + | 05/21/ | Implant | Cardiology | Daljit Singletary, | Remote Device | | 2019 | Monitor | | [address] | Interrogation | | | | | [place], | (Primary Dx); | | | | | [place] [address] | Pacemaker; | | | | | [phone] | Sinoatrial node | | | | | | dysfunction (HCC) | | | | | | with symptomatic | | | | | | bradycardia | +--------+ + + + + documented as of this encounter Visit Diagnoses Not on filedocumented in this encounter"
--- OUTSIDE RECORDS SUMMARY | ~2020-04-15 | XMS | Encounter Summary ---
Demographics + + + | Address | [address] | | | [place] [address] | + + + | Home Phone [...] Providers + +------+ + | Care Hospital Account Liaison Name | Role | Phone [...] | CARDIOLOGY [address] | [address] | Interrogation | | | | [place], | [place], | (Primary Dx); | | | | [place] [address] | [place] [address] | Pacemaker; | | | | [phone] | [phone] | Sinoatrial node | | | | [...] | | | | | | [place] [address] | | | | | | [phone] | | | | | | | | +--------+ + + + + | 05/01/ | Procedure | Cardiology | | | | 2019 | visit | | | | +--------+ + + + + | 05/01/ | Office | Cardiology | Silvia, | | | 2019 | Visit | | PARISA Vernon [address] | | | | | | [place], | | | | | | [place] [address] | | | | | | [phone] | | | | | | | | +--------+ + + + + | 05/21/ | Implant | Cardiology | Daljit Singletary, | Remote Device | | 2019 | Monitor | | [address] | Interrogation | | | | | [place], | (Primary Dx); | | | | | [place] [address] | Pacemaker; | | | | | [phone] | Sinoatrial node | | | | [...] remote PDF scanned into | | | [facility] for remote interrogation results. Data [...]
--- OUTSIDE RECORDS SUMMARY | ~2020-04-15 | XMS | Encounter Summary ---
Demographics + + + | Address | [address] | | | [place] [address] | + + + | Home Phone [...] Team Providers + +------+ + | Care Receivable Executive Name | Role | Phone [...] | | | | | [address] | [place] [address] | | | | | | [place], [place] | Phone: | | | | | | [address] | [phone] | | | | | | Phone: | Fax: | | | | | | [phone] | [phone] | | | | | | Fax: | | | | | | | [phone] | | + + + + + + + Reason for Visit + + + | Reason | Comments | + + + | Annual Exam | | + + + Encounter Details +--------+---------+ + + + | Date | Type | Department | Care Team | Description | +--------+---------+ + + + | 01/11/ | Office | [facility] | Prabhakarmaria doloresKirk | Irritable bowel | | 2019 | Visit | [facility] | MD [address] | syndrome, | | | | PR[address] | [address] | unspecified type | | | | [address] | [place] [address] | (Primary Dx); | | | | [place], [place] | [phone] | Chronic pain | | | | [address] | | syndrome; Smoker; | | | | [phone] | | Fatigue, unspecified | | | [...] | | | | | artery of shinnecock | | | | | | heart [...] PLT 169 06/02/2019 No results found for: [id number] No results found for: FOLATE No results [...] Plan and Recommendations: 1. [facility] in [place] for stool studies as outlined above 2. If negative and symptoms persist, recommend capsule endoscopy (this could be completed b y local [place] or he could return to [place] for this test) 3. Nortryptiline 25mg q HS with instruction to titrate to 50mg q HS after 2 weeks if tolera kevin Follow-Up: with local [facility] Counseling Time: I spent a total of 35 minutes with this patient, of which greater than 50% of the time was spent in counseling. Specific issues that were discussed included a review of the disease, diagnostic tools that help in our management plans for the patient's chronic diarrhea, abdominal cramping and weight loss and goals for treatment. Bridgette Rios MD Client Renewal Specialist Gastroenterology Many co and concerns: Co bleeding Co weak Co tired Co diarrhea Co cramps Co weight changes Co 14 stool in 2 hours this AM Took 8 imodium and 2 lomotil Not taking nortriptyline as prescribed by his GI Also wants a script for hemorrhoids Pending pill endoscopy and colonoscopy May be interested in [place] if no results States was down 210# now 267 Co bedridden and can't leave the house Co incontinence States many ER visits, once a week in [place], tx with IVF and dilaudid Conc re ppm Conc re r shoulder tkr and need for mri Issues with Klonopin Was arrested for DUI, self dc 08/14, had difficult withdrawal ofr 2 weeks Walks daily now for stress and exercise 1-5 miles a day Plan: ASSESSMENT AND PLAN: 1. Approximately 40 minutes of time on this gentleman's case [id number], a lot of it was reviewing outside [...] atypica l. Followed by Dr. Rios at [facility]. I reviewed her notes [...] | | | | | | [place] [address] | | | | | | [phone] | | | | | | | [...] | | | | | | [place] [address] | | | | | | [phone] | | | | | | | | +--------+ + + + + | 05/21/ | Implant | Cardiology | Daljit Singletary, | Remote Device | | 2019 | Monitor | | MD [address] [place] | Interrogation | | | | | [place], | (Primary Dx); | | | | | [place] [address] | Pacemaker; | | | | | [phone] | Sinoatrial node | | | | [...] pain | Ordered: 01/11/2020 | | to [facility] | Referral | e | [...] health care Routine general medical examination at [facility] | | facility | + + | Coronary artery disease involving shinnecock coronary artery of shinnecock heart without | | angina pectoris | [...]
--- OUTSIDE RECORDS SUMMARY | ~2020-04-15 | XMS | Encounter Summary ---
Demographics + + + | Address | [address] | | | [place] [address] | + + + | Home Phone [...] Providers + +------+ + | Care Orthotic And Prosthetic Technician Name | Role | Phone | + +------+ + | Kirk French MD | PCP | | + +------+ + Encounter Details +--------+ + + + + | Date | Type | Department | Care Team | Description | +--------+ + + + + | 07/05/ | Hospital | [facility] | Conversion | Acute neck pain | | 2017 | Encounter | [facility] | Transaction, | | | | | [address] | Provider Unknown | | | | | [address] [place], [place] | [phone] | | | | | [address] | | | | | | [phone] | Apolonia Ruano | | | | | | MD Shelly [address] | | | | | | [address] | | | | | | [place], [place] | | | | | | [address] | | | | | | [phone] | | | | | | | [...] | | | | | | [place] [address] | | | | | | [phone] | | | | | | | [...] | | | | | | [place] [address] | | | | | | [phone] | | | | | | | | +--------+ + + + + | 05/21/ | Implant | Cardiology | Daljit Singletary, | Remote Device | 2019 | Monitor | | [address] [facility] | Interrogation | | | | | [place], | (Primary Dx); | | | | | [place] [address] | Pacemaker; | | | | | [phone] | Sinoatrial node | | | | [...]
--- OUTSIDE RECORDS SUMMARY | ~2020-04-15 | XMS | Encounter Summary ---
Demographics + + + | Address | [address] | | | [place] [address] | + + + | Home Phone [...] Providers + +------+ + | Care Security Systems Installer Name | Role | Phone | [...] | 07/07/ | Telephone | [facility] | Daljit Singletary, | Appointment | | 2012 | | CARDIOLOGY [address] | MD [address] [place] | | | | | [place], | [place], | | | | | [place] [address] | [place] [address] | | | | | [phone] | [phone] | | | | | | | [...] W | | | | | | [place], | | | | | | [place] [address] | | | | | | [phone] | | | | | | | | +--------+ + + + + | 05/01/ | Procedure | Cardiology | | | | 2019 | visit | | | | +--------+ + + + + | 05/01/ | Office | Cardiology | Silvia, | | | 2019 | Visit | | PARISA [address] | | | | | | [place], | | | | | | [place] [address] | | | | | | [phone] | | | | | | | | +--------+ + + + + | 05/21/ | Implant | Cardiology | Daljit Singletary, | Remote Device | | 2020 | Monitor | | MD [facility] | Interrogation | | | | | [place], | (Primary Dx); | | | | | [place] [address] | Pacemaker; | | | | | [phone] | Sinoatrial node | | | | | | dysfunction (HCC) | | | | | | with symptomatic | | | | | | bradycardia | +--------+ + + + + documented as of this encounter Visit Diagnoses Not on filedocumented in this encounter"
--- OUTSIDE RECORDS SUMMARY | ~2020-04-15 | XMS | Encounter Summary ---
Demographics + + + | Address | [address] | | | [place] [address] | + + + | Home Phone [...] Providers + +------+ + | Care Software Installation Engineer Name | Role | Phone | + +------+ + | Kirk French MD | PCP | | + +------+ + Encounter Details +--------+ + + + + | Date | Type | Department | Care Team | Description | +--------+ + + + + | 11/17/ | Telephone | [facility] | Kirk French | | | 2019 | | GERALDINE Guidry MD [address] | | | | | PR[address]ARE [address] | [address] | | | | | [address] | [place] [address] | | | | | [place], [place] | [phone] | | | | | [address] | | | | | | [phone] | | | +--------+ + + + [...] | | | | | | [place] [address] | | | | | | [phone] | | | | | | | | +--------+ + + + + | 05/01/ | Procedure | Cardiology | | | | 2019 | visit | | | | +--------+ + + + + | 05/01/ | Office | Cardiology | Silvia, | | | 2019 | Visit | | PARISA Vernon [address] | | | | | | [place], | | | | | | [place] [address] | | | | | | [phone] | | | | | | | | +--------+ + + + + | 05/21/ | Implant | Cardiology | Daljit Singletary, | Remote Device | | 2019 | Monitor | | [address] [facility] | Interrogation | | | | | [place], | (Primary Dx); | | | | | [place] [address] | Pacemaker; | | | | | [phone] | Sinoatrial node | | | | | | dysfunction (HCC) | | | | | | with symptomatic | | | | | | bradycardia | +--------+ + + + + documented as of this encounter Visit Diagnoses Not on filedocumented in this encounter"
--- OUTSIDE RECORDS SUMMARY | ~2020-04-15 | XMS | Encounter Summary ---
Demographics + + + | Address | [address] | | | [place] [address] | + + + | Home Phone [...] Team Providers + +------+ + | Care Keyseater Operator Name | Role | Phone | [...] | Aneurysmal | [place]via, | [address] | | | | | dilatation | [place]is | [place], | | | | | (FORMERLY [facility]) | [address] | [place] | | | | | Procedures | [address] | [address] | | | | | ECHO | [place], | Phone: | | | | | Complete | [place] | [phone] | | | | | | [address] | Fax: | | | | | | Phone: | [phone] | | | | | | [phone] | | | | | | | Fax: | | | | | | | [phone] | | +--------+--------+ + + + + [...] | | | | | Aneurysmal | [place], | [address] | | | | | dilatation | PARISA Solis | [place], | | | | | (FORMERLY [facility]) | [address] | [place] | | | | | Procedures | [address] | [address] | | | | | ECHO | [place], | Phone: | | | | | Complete | [place] | [phone] | | | | | | [address] | Fax: | | | | | | Phone: | [phone] | | | | | | [phone] | | | | | | | Fax: | | | | | | | [phone] | | +--------+--------+ + + + + Encounter Details +--------+ + + + + | Date | Type | Department | Care Team | Description | +--------+ + + + + | 11/16/ | Hospital | [facility] | [place]via, | Aneurysmal | | 2017 | Encounter | MED CTR ECHO [address] | Janeen, FACILITY MANAGER HISTOLOGY [address] | dilatation (HCC) | | | | [place] | [place], | | | | | [place], [place] [address] | [place] [address] | | | | | [phone] | [phone] | | | | | | | [...] + + +---------+ + + | [place]-3 Fatty | CAPS, one capsule by | [...] | | | | | | [place] [address] | | | | | | [phone] | | | | | | | | +--------+ + + + + | 05/01/ | Procedure | Cardiology | | | | 2019 | visit | | | | +--------+ + + + + | 05/01/ | Office | Cardiology | Silvia, | | | 2019 | Visit | | PARISA Solis W | | | | | | [place], | | | | | | [place] [address] | | | | | | [phone] | | | | | | | | +--------+ + + + + | 05/21/ | Implant | Cardiology | Sydni Singletary, | Remote Device | | 2019 | Monitor | | MD [address] [place] | Interrogation | | | | | [place], | (Primary Dx); | | | | | [place] [address] | Pacemaker; | | | | | [phone] | Sinoatrial node | | | | [...] Room Number SARAH Patient | | | [id number] Date of Study 11/16/2017 Number | | | Visit Number [id number] | | | Referring Physician GURJIT TROY Number | | | NORMA SOLIS Date | | | of 1960 Luggage Attendant ROMAINE | | | MARISSA TIPTON Age 57 year(s) Interpreting | | | GURJIT TROY | | | Operations Architect SYDNI SINGLETARY, | | | | | | Gender Male Nurse | | | Stress Animal Shelter Worker Procedure Type of | | | [...] | | | EF | | | Xsaicmcwb69% Left Ventricle Diastolic Dimension: 5.12 cm | [...] Volume: 46.33 ml | | | EF Luckjsihi13% | | | | | | Left [...] BARRY Room Number SARAH | | Patient [id number] Date of Study 11/16/2017 Number Visit Number | | [id number] Referring Physician GURJIT TROY | | Number RHANGELIA SOLIS Date of | | 1960 Luggage Attendant ROMAINE TIPTON PARESH Age 57 year(s) | | Interpreting GURJIT TROY Operations Architect | | SYDNI SINGLETARY MD | | [...] LA Volume: 46.33 ml | | EF Jmffnbkfj08% Left Ventricle Diastolic Dimension: 5.12 cm Systolic [...] LA Volume: 46.33 ml | | EF Glqspyeen00% | | | | Left Ventricle | [...]
--- OUTSIDE RECORDS SUMMARY | ~2020-04-15 | XMS | Encounter Summary ---
Demographics + + + | Address | [address] | | | [place] [address] | + + + | Home Phone [...] Team Providers + +------+ + | Care Switchboard Wire Worker Helper Name | Role | Phone [...] 2019 | | GASTROENTEROLOGY | [address] [place], [place] | Recommendations | | | | [address] [place] | 210 [place], [place] | | | | | 210 [place], [place] | [address] | | | | | [address] | | | | | | [phone] | | | +--------+ + + + [...] | | | | | | [place], | | | | | | [place] [address] | | | | | | [phone] | | | | | | | | +--------+ + + + + | 05/01/ | Procedure | Cardiology | | | | 2019 | visit | | | | +--------+ + + + + | 05/01/ | Office | Cardiology | Silvia, | | | 2019 | Visit | | PARISA Vernon [address] | | | | | | [place], | | | | | | [place] [address] | | | | | | [phone] | | | | | | | | +--------+ + + + + | 05/21/ | Implant | Cardiology | Daljit Singletary, | Remote Device | 2019 | Monitor | | [address] [facility] | Interrogation | | | | | [place], | (Primary Dx); | | | | | [place] [address] | Pacemaker; | | | | | [phone] | Sinoatrial node | | | | | | dysfunction (HCC) | | | | | | with symptomatic | | | | | | bradycardia | +--------+ + + + + documented as of this encounter Visit Diagnoses Not on filedocumented in this encounter"
--- OUTSIDE RECORDS SUMMARY | ~2020-04-15 | XMS | Encounter Summary ---
Demographics + + + | Address | [address] | | | [place] [address] | + + + | Home Phone [...] Providers + +------+ + | Care Professor In Family Studies Name | Role | Phone | + [...] + + | 08/14/ | Telephone | [facility] | Michael Amanda, | Appointment | | 2012 | | GROUP IM[facility] [address] | DO [address] | | | | | [facility] | [place] | | | | | [place], [place] | [address] | | | | | [address] | | | | | | [phone] | | | +--------+ + + + [...] W | | | | | | [place], | | | | | | [place] [address] | | | | | | [phone] | | | | | | | | +--------+ + + + + | 05/01/ | Procedure | Cardiology | | | | 2019 | visit | | | | +--------+ + + + + | 05/01/ | Office | Cardiology | Silvia, | | | 2019 | Visit | | PARISA Vernon W | | | | | | [place], | | | | | | [place] [address] | | | | | | [phone] | | | | | | | | +--------+ + + + + | 05/21/ | Implant | Cardiology | Daljit Singletary, | Remote Device | 2019 | Monitor | | MD Chiquis Kauffmanar | Interrogation | | | | | [place], | (Primary Dx); | | | | | [place] [address] | Pacemaker; | | | | | [phone] | Sinoatrial node | | | | | | dysfunction (HCC) | | | | | | with symptomatic | | | | | | bradycardia | +--------+ + + + + documented as of this encounter Visit Diagnoses Not on filedocumented in this encounter"
--- OUTSIDE RECORDS SUMMARY | ~2020-04-15 | XMS | Encounter Summary ---
Demographics + + + | Address | [address] | | | [place] [address] | + + + | Home Phone [...] Providers + +------+ + | Care Inspector Advanced Composite Name | Role | Phone | + [...] Provider Unknown | | | | | [place], [place] | [phone] | | | | | [address] | | | | | | [phone] | | | +--------+ + + + [...] + + + +---------+ + + | [place]-3 Fatty | CAPS, one capsule by | [...] | | | | | | | #[id number], exp 07/2016 | | | | | [...] | | | | | | [place] [address] | | | | | | [phone] | | | | | | | | +--------+ + + + + | 05/01/ | Procedure | Cardiology | | | | 2019 | visit | | | | +--------+ + + + + | 05/01/ | Office | Cardiology | Silvia, | | | 2019 | Visit | | PARISA Vernon [address] | | | | | | [place], | | | | | | [place] [address] | | | | | | [phone] | | | | | | | | +--------+ + + + + | 05/21/ | Implant | Cardiology | Daljit Singletary, | Remote Device | | 2020 | Monitor | | [address] [place] | Interrogation | | | | | [place], | (Primary Dx); | | | | | [place] [address] | Pacemaker; | | | | | [phone] | Sinoatrial node | | | | [...]
--- OUTSIDE RECORDS SUMMARY | ~2020-04-15 | XMS | Encounter Summary ---
Demographics + + + | Address | [address] | | | [place] [address] | + + + | Home Phone [...] + | Organization | [facility] | | | and [...] Team Providers + +------+ + | Care Sueding And Buffing Machine Operator Name | Role | Phone [...] | | | CENTER [address] [place] | [address] [place] | | | | | [place], [place] | [place] [address] | | | | | [address] | [phone] | | | | | [phone] | | | +--------+ + + + [...] sent through Care Everywhere.Diarrhea, Unkno wn Cause (Serbian)documented in this encounter Medications at Time of [...] + + + +---------+ + + | [place]-3 Fatty | CAPS, one capsule by | [...] | | | | | | | iqugmiut coronary | | | | | | | artery of iqugmiut | | | | | | | [...] | | | | | | [place], | | | | | | [place] [address] | | | | | | [phone] | | | | | | | | +--------+ + + + + | 05/01/ | Procedure | Cardiology | | | | 2019 | visit | | | | +--------+ + + + + | 05/01/ | Office | Cardiology | Silvia, | | | 2019 | Visit | | PARISA Vernon W | | | | | | [place], | | | | | | [place] [address] | | | | | | [phone] | | | | | | | | +--------+ + + + + | 05/21/ | Implant | Cardiology | Daljit Singletary, | Remote Device | | 2020 | Monitor | | MD [facility] | Interrogation | | | | | [place], | (Primary Dx); | | | | | [place] [address] | Pacemaker; | | | | | [phone] | Sinoatrial node | | | | [...] W?MRN: | | | | | | [id number] | | | [id number] | | | riteri | | | [...] | | | St. | | | [place] | | | y | | | [...] | | | St. | | | [place] | | | y | | | [...] | | | St. | | | [place] | | | y H. | | [...] | | | St. | | | [place] | | | y H. | | [...] | | | M.D. | | | Corrections Officer | | | al | | | [...] | | | ent/60 | | | [id number] | | | -5586- | | | [...] [address] | [place] | [phone] | | [facility] | | [address] | | | - LABORATORY | | [...] [address] | [place] | [phone] | | [facility] | | [address] | | | - LABORATORY | | [...] [address] | [place] | [phone] | | [facility] | | [address] | | | - LABORATORY | | [...] | [facility] | [address] [place] [address] | [place] | [phone] | | [facility] | | [address] | | | - LABORATORY | | [...] [address] | [place] | [phone] | | [facility] | | [address] | | | - LABORATORY | | [...] | mL/min/1.73m2 | [place] | | | SALVADOREAN | RATE,ESTIMATED | | MEDICAL | | | | mL/min/1.63g7Akcf than | | CENTER - | | [...] + | [facility] | [address] [place] [address] | [place] | [phone] | | [facility] | | [address] | | | - LABORATORY | | [...] [address] | [place] | [phone] | | [facility] | | [address] | | | - LABORATORY | | [...] - 1.030 | [facility] | | | [place], | | | [facility] [place] | | [...] [address] | [place] | [phone] | | [facility] | | [address] | | | - LABORATORY | | [...]
--- OUTSIDE RECORDS SUMMARY | ~2020-04-15 | XMS | Encounter Summary ---
Demographics + + + | Address | [address] [place] [address] | | | [place] [address] | + + + | Home Phone [...] Team Providers + +------+ + | Care Vessel Slagman Name | Role | Phone | + +------+ + PCP | Unavailable | + +------+ + Encounter Details +--------+ + + + + | Date | Type | Department | Care Team | Description | +--------+ + + + + | 02/21/ | [facility] | [facility] | Geri Angel, | | | 2011 | Encounter | MED CTR XRAY [address] | CLERICAL AND ADMINISTRATIVE WORKERS [address] [place] | | | | | [place] | St [place] | | | | | [place] [address] | [address] | | | | | [phone] | | | +--------+ + + + [...] W | | | | | | [place], | | | | | | [place] [address] | | | | | | [phone] | | | | | | | | +--------+ + + + + | 05/01/ | Procedure | Cardiology | | | | 2019 | visit | | | | +--------+ + + + + | 05/01/ | Office | Cardiology | Silvia, | | | 2019 | Visit | | PARISA Vernon W | | | | | | [place], | | | | | | [place] [address] | | | | | | [phone] | | | | | | | | +--------+ + + + + | 05/21/ | Implant | Cardiology | Daljit Singletary, | Remote Device | | 2019 | Monitor | | [address] [place] | Interrogation | | | | | [place], | (Primary Dx); | | | | | [place] [address] | Pacemaker; | | | | | [phone] | Sinoatrial node | | | | | | dysfunction (HCC) | | | | | | with symptomatic | | | | | | bradycardia | +--------+ + + + + documented as of this encounter Visit Diagnoses Not on filedocumented in this encounter"
--- OUTSIDE RECORDS SUMMARY | ~2020-04-15 | XMS | Encounter Summary ---
Demographics + + + | Address | [address] | | | [place] [address] | + + + | Home Phone [...] Team Providers + +------+ + | Care C Unix Developer Name | Role | Phone | [...] 2019 | | GASTROENTEROLOGY | [address], [place] | | | | | [address] [place] | 210 [place], [place] | | | | | [address] [place], [place] | [address] | | | | | [address] | | | | | | [phone] | | | +--------+ + + + [...] | | | | | | [place] [address] | | | | | | [phone] | | | | | | | [...] | | | | | | [place] [address] | | | | | | [phone] | | | | | | | | +--------+ + + + + | 05/21/ | Implant | Cardiology | Daljit Singletary, | Remote Device | 2019 | Monitor | | [address] | Interrogation | | | | | [place], | (Primary Dx); | | | | | [place] [address] | Pacemaker; | | | | | [phone] | Sinoatrial node | | | | | | dysfunction (HCC) | | | | | | with symptomatic | | | | | | bradycardia | +--------+ + + + + documented as of this encounter Visit Diagnoses Not on filedocumented in this encounter"
--- OUTSIDE RECORDS SUMMARY | ~2020-04-15 | XMS | Encounter Summary ---
Demographics + + + | Address | [address] | | | [place] [address] | + + + | Home Phone [...] Providers + +------+ + | Care Sand Digger Name | Role | Phone | [...] | Telephone | [facility] [place] | Dajlit Singletary, | Other (Danieljoao | | 2018 | | [place] [address] | [address] | remote) | | | | [place], | [place], | | | | | [place] [address] | [place] [address] | | | | | [phone] | [phone] | | | | | | | [...] | | | | | | [place] [address] | | | | | | [phone] | | | | | | | [...] | | | | | | [place] [address] | | | | | | [phone] | | | | | | | | +--------+ + + + + | 05/21/ | Implant | Cardiology | Daljit Singletary, | Remote Device | 2019 | Monitor | | MD [address] | Interrogation | | | | | [place], | (Primary Dx); | | | | | [place] [address] | Pacemaker; | | | | | [phone] | Sinoatrial node | | | | | | dysfunction (HCC) | | | | | | with symptomatic | | | | | | bradycardia | +--------+ + + + + documented as of this encounter Visit Diagnoses Not on filedocumented in this encounter"
--- OUTSIDE RECORDS SUMMARY | ~2020-04-15 | XMS | Encounter Summary ---
Demographics + + + | Address | [address] | | | [place] [address] | + + + | Home Phone [...] Providers + +------+ + | Care Hay Farmer Name | Role | Phone | [...] [address] [place] | | | | | [place], [place] | [address] | | | | | [address] | [place] [address] | | | | | [phone] | [phone] | | | | | | | [...] | | | | | | [place], | | | | | | [place] [address] | | | | | | [phone] | | | | | | | | +--------+ + + + + | 05/01/ | Procedure | Cardiology | | | | 2019 | visit | | | | +--------+ + + + + | 05/01/ | Office | Cardiology | Silvia, | | | 2019 | Visit | | PARISA Vernon W | | | | | | [place], | | | | | | [place] [address] | | | | | | [phone] | | | | | | | | +--------+ + + + + | 05/21/ | Implant | Cardiology | Daljit Singletary, | Remote Device | 2019 | Monitor | | MD [address] [place] | Interrogation | | | | | [place], | (Primary Dx); | | | | | [place] [address] | Pacemaker; | | | | | [phone] | Sinoatrial node | | | | [...]
--- OUTSIDE RECORDS SUMMARY | ~2020-04-15 | XMS | Encounter Summary ---
Demographics + + + | Address | [address] | | | [place] [address] | + + + | Home Phone [...] Providers + +------+ + | Care Diabetes Educator Name | Role | Phone | [...] + | 02/27/ | Telephone | [facility] | [place], | Chest Pain (Patient | | 2013 | | CARDIOLOGY [address] | Janeen, VISUAL SPECIALIST [address] | having chest pain) | | | | [place], | [place], | | | | | [place] [address] | [place] [address] | | | | | [phone] | [phone] | | | | | | | [...] | | | | | | [place] [address] | | | | | | [phone] | | | | | | | [...] | | | | | | [place] [address] | | | | | | [phone] | | | | | | | | +--------+ + + + + | 05/21/ | Implant | Cardiology | Daljit Singletary, | Remote Device | | 2019 | Monitor | | [facility] | Interrogation | | | | | [facility], | (Primary Dx); | | | | | [place] [address] | Pacemaker; | | | | | [phone] | Sinoatrial node | | | | | | dysfunction (HCC) | | | | | | with symptomatic | | | | | | bradycardia | +--------+ + + + + documented as of this encounter Visit Diagnoses Not on filedocumented in this encounter"
--- OUTSIDE RECORDS SUMMARY | ~2020-04-15 | XMS | Encounter Summary ---
Demographics + + + | Address | [address] | | | [place] [address] | + + + | Home Phone [...] Team Providers + +------+ + | Care Lime Sludge Kiln Operator Name | Role | Phone [...] + + | 11/03/ | Refill | [facility] | Kirk French | Medication Refill | | 2019 | | [facility] | MD Brea [address] | | | | | [facility] [address] | [address] | | | | | [address] | [place] [address] | | | | | [place], [place] | [phone] | | | | | [address] | | | | | | [phone] | | | +--------+--------+ + + + [...] | | | | | | [place] [address] | | | | | | [phone] | | | | | | | | +--------+ + + + + | 05/01/ | Procedure | Cardiology | | | | 2019 | visit | | | | +--------+ + + + + | 05/01/ | Office | Cardiology | Silvia, | | | 2019 | Visit | | PARISA Vernon [address] | | | | | | [place], | | | | | | [place] [address] | | | | | | [phone] | | | | | | | | +--------+ + + + + | 05/21/ | Implant | Cardiology | Daljit Sinlgetary, | Remote Device | | 2019 | Monitor | | [address] [facility] | Interrogation | | | | | [place], | (Primary Dx); | | | | | [place] [address] | Pacemaker; | | | | | [phone] | Sinoatrial node | | | | | | dysfunction (HCC) | | | | | | with symptomatic | | | | | | bradycardia | +--------+ + + + + documented as of this encounter Visit Diagnoses Not on filedocumented in this encounter"
--- OUTSIDE RECORDS SUMMARY | ~2020-04-15 | XMS | Encounter Summary ---
Demographics + + + | Address | [address] | | | [place] [address] | + + + | Home Phone [...] Providers + +------+ + | Care Corn Sheller Operator Name | Role | Phone | + +------+ + PCP | Unavailable | + +------+ + Encounter Details +--------+ + + + + | Date | Type | Department | Care Team | Description | +--------+ + + + + | [facility] | Naresh Mckeon | | | 2009 | Encounter | MED CTR SLEEP | MD Chaya [address] | | | | | CENTER [address] | [place] | | | | | [place] | [place] [address] | | | | | [address] | [phone] | | | | | [phone] | | | +--------+ + + + [...] W | | | | | | [place], | | | | | | [place] [address] | | | | | | [phone] | | | | | | | | +--------+ + + + + | 05/01/ | Procedure | Cardiology | | | | 2019 | visit | | | | +--------+ + + + + | 05/01/ | Office | Cardiology | Silvia | | | 2019 | Visit | | PARISA [place] [address] | | | | | | [place], | | | | | | [place] [address] | | | | | | [phone] | | | | | | | | +--------+ + + + + | 05/21/ | Implant | Cardiology | Daljit Singletary, | Remote Device | 2019 | Monitor | | [address] [place] | Interrogation | | | | | [place], | (Primary Dx); | | | | | [place] [address] | Pacemaker; | | | | | [phone] | Sinoatrial node | | | | | | dysfunction (HCC) | | | | | | with symptomatic | | | | | | bradycardia | +--------+ + + + + documented as of this encounter Visit Diagnoses Not on filedocumented in this encounter"
--- OUTSIDE RECORDS SUMMARY | ~2020-04-15 | XMS | Encounter Summary ---
Demographics + + + | Address | [address] | | | [place] [address] | + + + | Home Phone [...] Providers + +------+ + | Care Personal Secretary Name | Role | Phone | [...] + | 09/01/ | [facility] | [facility] | [place]via, | Ascending thoracic | | 2015 | Visit | CARDIOLOGY [address] | PAR[place] [address] | aortic aneurysm | | | | [place], | [place], | ([facility]) (Primary Dx); | | | | [place] [address] | [place] [address] | Coronary artery | | | | [phone] | [phone] | disease involving | | | | | | pilot station coronary | | | | | | artery of pilot station | | | | | | heart [...] documented in this encounter Progress Notes Janeen Ramriez ARNP - 09/01/2016 3:38 PM PDTFormatting of [...] episode of chest pain while nelly ng [facility], so he took some sublingual nitroglycerin and [...] by mouth every evening 90 tablet 3 [facility] Natural [employer] (OSTEO BI-FLEX/5-LOXIN ADVANCED PO) Take [...] 3rd dose, call 911 100 tablet 3 [place]-3 Fatty Acids (SALMON OIL-1000 PO) CAPS, one [...] 129* 05/12/2016 I reviewed records from [facility] for office visit on 06/2016 [facility] ch is summarized in the HPI. 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 On physical examination there are no signs of fluid overload. The plan will be to lose weight, modify portion control, start exercising, limit sodium in take and we will start losartan 25 mg once a day with a close monitoring of blood pressure. 2. Non-critical Coronary artery disease involving pilot station coronary artery of pilot station heart [facility] angina pectoris: A. Normal exercise [...] to go back in 3 days to [place] for an attempt of ablation under general [...] this chart may have been created with [employer] voice recognition software. Occasi onal wrong-word [...] | | | | | | [place] [address] | | | | | | [phone] | | | | | | | | +--------+ + + + + | 05/01/ | Procedure | Cardiology | | | 2019 | visit | | | | +--------+ + + + + | 05/01/ | Office | Cardiology | Silvia, | | | 2019 | Visit | | PARISA Vernon [address] | | | | | | [place], | | | | | | [place] [address] | | | | | | [phone] | | | | | | | | +--------+ + + + + | 05/21/ | Implant | Cardiology | Daljit Singletary, | Remote Device | | 2019 | Monitor | | [address] [place] | Interrogation | | | | | [place], | (Primary Dx); | | | | | [place] [address] | Pacemaker; | | | | | [phone] | Sinoatrial node | | | | [...] + + | Coronary artery disease involving pilot station coronary artery of pilot station heart without | | angina pectoris | + + | Essential hypertension with goal blood pressure less than 130/80 | + + | Hyperlipidemia, mixed Mixed hyperlipidemia | + + documented in this encounter
--- OUTSIDE RECORDS SUMMARY | ~2020-04-15 | XMS | Encounter Summary ---
Demographics + + + | Address | [address] | | | [place] [address] | + + + | Home Phone [...] Providers + +------+ + | Care Informatics Manager Name | Role | Phone | [...] [place] | | | | | | [address] | [address] Phone: | | | | | | Phone: | [phone] | | | | | | [phone] | Fax: | | | | | | Fax: | [phone] | | | | | | [phone] | | +--------+ + + + + + Reason for Visit + + + | Reason | Comments | + + + | Medicare Wellness | | + + + Encounter Details +--------+---------+ + + + | Date | Type | Department | Care Team | Description | +--------+---------+ + + + | 07/25/ | Office | [facility] | Michael Amanda, | Preventative health | | 2014 | Visit | [facility] [place] | DO [address] | care (Primary Dx); | | | | [address] | [place] | Cannabis abuse, | | | | [place] | [address] | daily use; Urinary | | | | [address] | | frequency; | | | | [phone] | | Incontinence; | | | | [...] needed for Chest pain. 25 tablet 12 [place]-3 Fatty Acids (SALMON OIL-1000 PO) CAPS, one [...] and DME Suppliers Patient Care Team: Michael Aamnda DO as PCP - General (Family Medicine) PARISA Velazquez (Nurse Practitioner) Daljit iSngletary MD as Physician (Cardiology) PARISA Russell as Nurse Practitioner (Cardiology) FENG Chou (Physician Breastfeeding Educator) Current Medicare Suppliers: [facility] - [place], [place] - [address] [place] [address] [facility] - [place] - [address] [place] [address] HEALTH RISK ASSESSMENT: : The patient or [...] following health maintenance items are reviewed in [facility] and correct as of today: Health [...] no kevin in the usual sections in [employer]. documented in this en counter Plan of Treatment +--------+ + + + + | Date | Type | Specialty | Care Team | Description | +--------+ + + + + | 05/01/ | Appointment | Radiology | Silvia, | | | 2019 | | | PARISA Vernon [address] | | | | | | [place], | | | | | | [place] [address] | | | | | | [phone] | | | | | | | | +--------+ + + + + | 05/01/ | Procedure | Cardiology | | | | 2019 | visit | | | | +--------+ + + + + | 05/01/ | Office | Cardiology | Silvia, | | | 2019 | Visit | | PARISA Vernon [address] | | | | | | [place], | | | | | | [place] [address] | | | | | | [phone] | | | | | | | | +--------+ + + + + | 05/21/ | Implant | Cardiology | Daljit Singletary, | Remote Device | 2019 | Monitor | | MD [address] [place] | Interrogation | | | | | [place], | (Primary Dx); | | | | | [place] [address] | Pacemaker; | | | | | [phone] | Sinoatrial node | | | | [...] Primary Routine general medical examination at a [facility] | | care facility | + [...]
--- OUTSIDE RECORDS SUMMARY | ~2020-04-15 | XMS | Encounter Summary ---
Demographics + + + | Address | [address] | | | [place] [address] | + + + | Home Phone [...] Team Providers + +------+ + | Care Babcock Tester Name | Role | Phone | [...] Unknown | | | | | [place], [place] | [phone] | | | | | [address] | | | | | | [phone] | | | +--------+ + + + [...] + + + +---------+ + + | Juliaetta-3 Fatty | CAPS, one capsule by | [...] | | | | | | | #[id number], exp 07/2016 | | | | | [...] | | | | | | [place] [id number] | | | | | | [phone] | | | | | | | | +--------+ + + + + | 05/01/ | Procedure | Cardiology | | | | 2019 | visit | | | | +--------+ + + + + | 05/01/ | Office | Cardiology | Silvia, | | | 2019 | Visit | | PARISA Vernon [address] | | | | | | [place], | | | | | | [place] [address] | | | | | | [phone] | | | | | | | | +--------+ + + + + | 05/21/ | Implant | Cardiology | Daljit Singletary, | Remote Device | | 2020 | Monitor | | [address] [place] | Interrogation | | | | | [place], | (Primary Dx); | | | | | [place] [address] | Pacemaker; | | | | | [phone] | Sinoatrial node | | | | [...]
--- OUTSIDE RECORDS SUMMARY | ~2020-04-15 | XMS | Encounter Summary ---
Demographics + + + | Address | [address] | | | [place] [address] | + + + | Home Phone [...] Team Providers + +------+ + | Care Testing Machine Operator Name | Role | Phone | + +------+ + | Kirk French MD | PCP | | + +------+ + Encounter Details +--------+---------+ + + + | Date | Type | Department | Care Team | Description | +--------+---------+ + + + | 12/24/ | Surgery | [facility] | Emmanuel Daniel MD | EGD | | 2018 | | MED CTR MP INTRA OP | [address], [place] | | | | | [address] | [address] [place], [place] | | | | | [place], [place] | [address] | | | | | [address] | | | | | | [phone] | | | +--------+---------+ + + + [...] + + + +---------+ + + | Banquete-3 Fatty | CAPS, one capsule by | [...] | | | | | | [place] [address] | | | | | | [phone] | | | | | | | [...] | | | | | | [place] [address] | | | | | | [phone] | | | | | | | | +--------+ + + + + | 05/21/ | Implant | Cardiology | Daljit Singletary, | Remote Device | | 2019 | Monitor | | MD [address] | Interrogation | | | | | [facility] [place], | (Primary Dx); | | | | | [place] [address] | Pacemaker; | | | | | [phone] | Sinoatrial node | | | | [...] + + | Performed at: 01 - [facility] [address], | REFERENCE LAB | | [place], [place] [address] [place] Representative: William Andrew MD, Phone: | [facility] | | [phone] | | + + + + + + + + | Performing | Address | City/State/Zipcode | Phone Number | | Organization | | | | + + + + + | REFERENCE LAB | [address] | [place], [place] | [phone] | | [facility] | Petar Cortez | [address] | | + + + + + [...] [address] | [place] | [phone] | | [facility] | | [address] | | | - LABORATORY | | [...] ST. | [address] | [place] | [phone] | | [facility] | | [address] | | | - LABORATORY | | [...] + | [address] | [address] | [place] | [phone] | | [facility] | | [address] | | | - LABORATORY | | [...] + + | Performed at: 01 - [facility] [address], | REFERENCE LAB | | [place], [place] [address] [place] Representative: William Andrew MD, Phone: | [facility] | | [phone] | | + + + + + + + + | Performing | Address | City/State/Zipcode | Phone Number | | Organization | | | | + + + + + | REFERENCE LAB | [address] | [place], [place] | [phone] | | [facility] | [facility] | [address] | | + + + + + [...] [address] | [place] | [phone] | | [facility] | | [address] | | | - LABORATORY | | [...] [address] | [place] | [phone] | | [facility] | | [address] | | | - LABORATORY | | [...] | [address] | [place] | [phone] | | [facility] | | [address] | | | - LABORATORY | | [...] [address] | [place] | [phone] | | [facility] | | [address] | | | - LABORATORY | | [...] ST. | [address] | [place] | [phone] | | [facility] | | [address] | | | - LABORATORY | | | | + + + + + EGD (12/24/2017 1:19 PM PST) + + | Specimen | + + | | + + + + -+ | Narrative | Performed At | + + -+ | | [facility] | | GastroenterologyPatient Name: Moe SanchezProcedure Date: 12/24/2017 | PROVATION | | 1:19 PMMRN: [id number] #: [id number] of : | | | 1960dmit Type: AmbulatoryAge: 57[facility]Gender: MaleNote | | | Status: FinalizedAttending MD: Emmanuel Daniel , MDProcedure: | | | Upper GI endoscopyIndications: Diarrhea, Weight | | | lossProviders: Emmanuel Daniel MD, Maria Isabel Morris RN, | | | Kim Hicks, Information Systems Technician, Jarett | | | Sapna Barakat [...] the anesthesiologist and | | | the low voltage technician in the endoscopy suite. Mental Status [...] PMScope Out: 1:31:13 PM | | | [facility], [address] [place] [address] | | | [place] [address] | | | - Discharge patient to [...] |Scope Out: 1:31:13 PM | | | [facility], [address] [place] [address] | | | [address] | | + + -+ + +---------+ [...] 12/24/2017 | [facility]OVATION | | 1:17 PMMRN: [id number] #: [id number] of : | | | 8Admit Type: AmbulatoryAge: 57Room: [facility] 01Gender: MaleNote | | | Status: FinalizedAttending MD: Emmanuel Daniel [facility]: | | | ColonoscopyIndications: Clinically significant diarrhea of | | | unexplained originProviders: Emmanuel Daniel MD, Maria Isabel | | | Arturo, RN, Kim Hicks, Information Systems Technician, | | | Jarett Barakat MD [...] | | | the anesthesiologist and the low voltage technician in the endoscopy suite. | | [...] Scope In: 1:32:55 PMScope Out: 1:48:57 PM [facility] | | | [facility], [address] [place] [address] | | | [phone] | | | - Await pathology results. [...] |Scope Out: 1:48:57 PM | | | [facility], [facility] [address] [place], [place] | | | [address] | | + + -+ + +---------+ [...] | colonic mucosa with focal adenomatous change. CLR:[facility]:C2NR | | | GROSS DESCRIPTION: [...] | | cm, submitted, all in (D1). ka:CLR:[facility] ADDITIONAL NOTES: | | | Immunohistochemical studies were performed on this case with the | | | appropriate positive controls that react as expected. This test was | | | developed and its performance characteristics determined by [employer] | | | [facility]. It has not been cleared or approved by the U.S. Food | | | and Drug Administration. The FDA has determined that such clearance | | | or approval is not necessary. This test is used for clinical | | | purposes. It should not be regarded as investigational or for | | | research. [facility] is certified under the Clinical | | | Laboratory Improvement Amendments of 1988 (CLIA) as qualified to | | | perform high complexity clinical laboratory testing. This assay | | | has not been validated for specimens that have been decalcified. | | | PERFORMING LABORATORY: Tissue processing and slide preparation were | | | performed by [facility], [address], [facility] | | | [place] [address] (Marketing Database Analyst: Evan Frausto M.D. CLIA#: | | | [id number]). Professional interpretation was performed by [employer] | | | [facility], [address], [place] [address] | | | (Marketing Database Analyst: Evan Frausto M.D.; CLIA#: [id number]). | | | Diagnostician: Rafael Bales MD [...]
--- OUTSIDE RECORDS SUMMARY | ~2020-04-15 | XMS | Encounter Summary ---
Demographics + + + | Address | [address] | | | [place] [address] | + + + | Home Phone [...] Team Providers + +------+ + | Care Sustain Engineer Name | Role | Phone | [...] + | 02/27/ | Telephone | [facility] | [place], | Chest Pain (Patient | | 2013 | | CARDIOLOGY [address] | Janeen, GRAVITY PROSPECTING OBSERVER HELPER [address] | having chest pain) | | | | [place], | [place], | | | | | [place] [address] | [place] [address] | | | | | [phone] | [phone] | | | | | | | [...] W | | | | | | [place], | | | | | | [place] [address] | | | | | | [phone] | | | | | | | | +--------+ + + + + | 05/01/ | Procedure | Cardiology | | | | 2019 | visit | | | | +--------+ + + + + | 05/01/ | Office | Cardiology | [place], | | | 2019 | Visit | | [address] | | | | | | [place], | | | | | | [place] [address] | | | | | | [phone] | | | | | | | | +--------+ + + + + | 05/21/ | Implant | Cardiology | Daljit Singletary, | Remote Device | | 2019 | Monitor | | [address] [facility] | Interrogation | | | | | [place] [place], | (Primary Dx); | | | | | [place] [address] | Pacemaker; | | | | | [phone] | Sinoatrial node | | | | | | dysfunction (HCC) | | | | | | with symptomatic | | | | | | bradycardia | +--------+ + + + + documented as of this encounter Visit Diagnoses Not on filedocumented in this encounter"
--- OUTSIDE RECORDS SUMMARY | ~2020-04-15 | XMS | Encounter Summary ---
Demographics + + + | Address | [address] | | | [place] [address] | + + + | Home Phone [...] Team Providers + +------+ + | Care Motorman/Woman Name | Role | Phone | + +------+ + PCP | Unavailable | + +------+ + Encounter Details +--------+ + + + + | Date | Type | Department | Care Team | Description | +--------+ + + + + | 02/21/ | [facility] | [facility] | Geri Angel, | | | 2011 | Encounter | MED CTR XRAY [address] | PLANT AND MAINTENANCE TECHNICIAN [address] | | | | | [place] | St [place] | | | | | [place] [address] | [address] | | | | | [phone] | | | +--------+ + + + [...] | | | | | | [place] [address] | | | | | | [phone] | | | | | | | [...] | | | | | | [place] [address] | | | | | | [phone] | | | | | | | | +--------+ + + + + | 05/21/ | Implant | Cardiology | Daljit Singletary, | Remote Device | | 2019 | Monitor | | [address] | Interrogation | | | | | [place], | (Primary Dx); | | | | | [place] [address] | Pacemaker; | | | | | [phone] | Sinoatrial node | | | | | | dysfunction (HCC) | | | | | | with symptomatic | | | | | | bradycardia | +--------+ + + + + documented as of this encounter Visit Diagnoses Not on filedocumented in this encounter"
--- OUTSIDE RECORDS SUMMARY | ~2020-04-15 | XMS | Encounter Summary ---
Demographics + + + | Address | [address] | | | [place] [address] | + + + | Home Phone [...] Organization | [facility] | | | [...] + +------+ + | Care Accounts Receivable Associate Name | Role | Phone | [...] + + | 12/09/ | Telephone | [facility] | Emmanuel Daniel MD | Appointment (EGD, | | 2017 | | GASTROENTEROLOGY | [address], [place] | colon Rescheduled to | | | | [address] [place] | [address] [place] | December 24 due to | | | | [address] [place] | [address] | illness) | | | | [address] | | | | | | [phone] | | | +--------+ + + + [...] | | | | | | [place] [address] | | | | | | [phone] | | | | | | | | +--------+ + + + + | 05/01/ | Procedure | Cardiology | | | | 2019 | visit | | | | +--------+ + + + + | 05/01/ | Office | Cardiology | Silvia, | | | 2019 | Visit | | PARISA [place] [address] | | | | | | [place], | | | | | | [place] [address] | | | | | | [phone] | | | | | | | | +--------+ + + + + | 05/21/ | Implant | Cardiology | Daljit Singletary, | Remote Device | | 2019 | Monitor | | [address] | Interrogation | | | | | [place], | (Primary Dx); | | | | | [place] [address] | Pacemaker; | | | | | [phone] | Sinoatrial node | | | | | | dysfunction (HCC) | | | | | | with symptomatic | | | | | | bradycardia | +--------+ + + + + documented as of this encounter Visit Diagnoses Not on filedocumented in this encounter"
--- OUTSIDE RECORDS SUMMARY | ~2020-04-15 | XMS | Encounter Summary ---
Demographics + + + | Address | [address] | | | [place] [address] | + + + | Home Phone [...] + + | 08/26/ | Hospital | [facility] | | | | 2009 | Encounter | MED CTR LABORATORY | | | | | | [address] [place] | | | | | | [place] | | | | | | [address] | | | | | | [phone] | | | +--------+ + + + [...] | | | | | | [place] [address] | | | | | | [phone] | | | | | | | | +--------+ + + + + | 05/01/ | Procedure | Cardiology | | | | 2019 | visit | | | | +--------+ + + + + | 05/01/ | Office | Cardiology | Silvia, | | | 2019 | Visit | | [address] | | | | | | [place], | | | | | | [place] [address] | | | | | | [phone] | | | | | | | | +--------+ + + + + | 05/21/ | Implant | Cardiology | Daljit Singletary, | Remote Device | 2019 | Monitor | | [address] [place] | Interrogation | | | | | [place], | (Primary Dx); | | | | | [place] [address] | Pacemaker; | | | | | [phone] | Sinoatrial node | | | | | | dysfunction (HCC) | | | | | | with symptomatic | | | | | | bradycardia | +--------+ + + + + documented as of this encounter Visit Diagnoses Not on filedocumented in this encounter"
--- OUTSIDE RECORDS SUMMARY | ~2020-04-15 | XMS | Encounter Summary ---
Demographics + + + | Address | [address] [place] [address] [address] | | | [place] [address] | + + + | Home Phone [...] + | Rachel Valencia | ELIEZER | [place] | | | | | [address] | | + + + + + Care Team Providers + +------+ + | Care Retail And Restaurant Name | Role | Phone | + [...] | 2019 | | Center at [facility] [address] | Gastroenterology | Gastroenterology | | | | Kaylah Crane | | | | | | Mailcode: Cement | | | | | | [facility] and | | | | | | [place] [address] | | | | | | [place], [place] | | | | | | [address] | | | | | | [phone] | | | +--------+ + + + [...]
--- OUTSIDE RECORDS SUMMARY | ~2020-04-15 | XMS | Encounter Summary ---
Demographics + + + | Address | [address] | | | [place] [address] | + + + | Home Phone [...] + | 10/01/ | Hospital | [facility] | Mary Bradshaw | | | 2013 | Encounter | MED CTR [facility] | Guy Larkin MD | | | | | [address] [place] | [address] | | | | | [place], [place] | [place], [place] | | | | | [address] | [address] | | | | | [phone] | | | +--------+ + + + [...] | | | | | | [place] [address] | | | | | | [phone] | | | | | | | | +--------+ + + + + | 05/01/ | Procedure | Cardiology | | | | 2019 | visit | | | | +--------+ + + + + | 05/01/ | Office | Cardiology | Silvia, | | | 2019 | Visit | | PARISA [place] [address] | | | | | | [place], | | | | | | [place] [address] | | | | | | [phone] | | | | | | | | +--------+ + + + + | 05/21/ | Implant | Cardiology | Daljit Singletary, | Remote Device | | 2019 | Monitor | | [address] [place] | Interrogation | | | | | [place], | (Primary Dx); | | | | | [place] [address] | Pacemaker; | | | | | [phone] | Sinoatrial node | | | | [...] + | MISCELLANEOUS LAB | | | [phone] | + +---------+ + + | MISCELANIOUS LAB | | | [phone] | + +---------+ + + documented in this encounter Visit Diagnoses Not on filedocumented in this encounter"
--- OUTSIDE RECORDS SUMMARY | ~2020-04-15 | XMS | Encounter Summary ---
Demographics + + + | Address | [address] | | | [place] [address] | + + + | Home Phone [...] + + + + | 05/13/ | [facility] | [facility] | Dom Graham, | | | 2010 | Encounter | MED CTR EMERGENCY | [address] | | | | | CENTER [address] | [place] | | | | | [place] | [address] | | | | | [address] | | | | | | [phone] | | | +--------+ + + + [...] W | | | | | | [place], | | | | | | [place] [address] | | | | | | [phone] | | | | | | | | +--------+ + + + + | 05/01/ | Procedure | Cardiology | | | | 2019 | visit | | | | +--------+ + + + + | 05/01/ | Office | Cardiology | Silvia | | | 2019 | Visit | | PARISA [place] [address] | | | | | | [place], | | | | | | [place] [address] | | | | | | [phone] | | | | | | | | +--------+ + + + + | 05/21/ | Implant | Cardiology | Daljit Singletary, | Remote Device | 2019 | Monitor | | MD [address] [place] [address] | Interrogation | | | | | [place], | (Primary Dx); | | | | | [place] [address] | Pacemaker; | | | | | [phone] | Sinoatrial node | | | | [...] | | | | | the [employer] | | | | | | Access Analyzer. | | | | + + + + + + + + | Specimen | + + | | + + + + + + + | Performing | Address | City/State/Zipcode | Phone Number | | Organization | | | | + + + + + | [facility] | [address] | [place] | [phone] | | [facility] | | [address] | | | - LABORATORY | | | | + + + + + | [facility] | [address] | [place] | | | [facility] | | [address], [facility] | | | - LABORATORY [...] | | Neutrophils | | | [facility] | | [...] [address] | [place] | [phone] | | [facility] | | [address] | | | - LABORATORY | | | | + + + + + | [facility] | [address] | [place] | | | [facility] | | [address] | | | [...] + | [facility] | [address] | [place] | [phone] | | [facility] | | [address] | | | - LABORATORY | | | | + + + + + | [facility] | [address] | [place] | | | [facility] | | [address] | | | [...] + | [facility] | [address] | [place], [place] | [phone] | | [facility] | | [address] | | | - LABORATORY | | | | + + + + + | [facility] | [address] | [place], [place] | | | [facility] | | [address] | | | - LABORATORY | | | | + + + + + XR Chest AP Portable (05/13/2011 3:01 PM PDT) + + | Specimen | + + | | + + + + + | Narrative | Performed At | + + + | [facility] | [facility] | | [address] [facility] | [facility] | | PORTABLE CHEST CLINICAL | DIAG [...] Transcribed Date/Time: | | | 05/13/2011 17:06 Sole Skiver: <Electronically Signed | | | by Jama Solis MD> 05/13/112038 | | + + + + + | Procedure Note | + + | Kevin, Rad Conversion - 12/29/2013 3:12 PM [facility] | | Diagnostic Imaging Department [address] [place] [address] | | PORTABLE CHEST CLINICAL HISTORY: TACHYCARDIA. [...] 16:57 | |Transcribed Date/Time: 05/13/2011 17:06 | |Sole Skiver: | |<Electronically Signed by Jama Solis MD> [...]
--- OUTSIDE RECORDS SUMMARY | ~2020-04-15 | XMS | Encounter Summary ---
Demographics + + + | Address | [address] | | | [place] [address] | + + + | Home Phone [...] Team Providers + +------+ + | Care Lip And Gate Builder Name | Role | Phone | [...] [address] | | | | | [address] | [place] | | | | | [phone] | [address] | | | | | | | [...] | | | | | | [place], | | | | | | [place] [address] | | | | | | [phone] | | | | | | | | +--------+ + + + + | 05/01/ | Procedure | Cardiology | | | | 2019 | visit | | | | +--------+ + + + + | 05/01/ | Office | Cardiology | Silvia, | | | 2019 | Visit | | PARISA [address] | | | | | | [place], | | | | | | [place] [address] | | | | | | [phone] | | | | | | | | +--------+ + + + + | 05/21/ | Implant | Cardiology | Daljit Singletary, | Remote Device | 2019 | Monitor | | [address] | Interrogation | | | | | [place], | (Primary Dx); | | | | | [place] [address] | Pacemaker; | | | | | [phone] | Sinoatrial node | | | | | | dysfunction (HCC) | | | | | | with symptomatic | | | | | | bradycardia | +--------+ + + + + documented as of this encounter Visit Diagnoses Not on filedocumented in this encounter"
--- OUTSIDE RECORDS SUMMARY | ~2020-04-15 | XMS | Encounter Summary ---
Demographics + + + | Address | [address] | | | [place] [address] | + + + | Home Phone [...] Providers + +------+ + | Care Powder And Primer Canning Leader Name | Role | Phone | [...] | initial encounter; | | | | [place], [place] | | Elevated blood | | | | [address] | | pressure reading; | | | | [phone] | | Numbness and | | | [...] + + + +---------+ + + | [place]-3 Fatty | CAPS, one capsule by | [...] | | | | | | [place] [address] | | | | | | [phone] | | | | | | | | +--------+ + + + + | 05/01/ | Procedure | Cardiology | | | | 2019 | visit | | | | +--------+ + + + + | 05/01/ | Office | Cardiology | Silvia, | | | 2019 | Visit | | [address] | | | | | | [place], | | | | | | [place] [address] | | | | | | [phone] | | | | | | | | +--------+ + + + + | 05/21/ | Implant | Cardiology | Daljit Singletary, | Remote Device | | 2020 | Monitor | | [address] [facility] | Interrogation | | | | | [place], | (Primary Dx); | | | | | [place] [address] | Pacemaker; | | | | | [phone] | Sinoatrial node | | | | [...]
--- OUTSIDE RECORDS SUMMARY | ~2020-04-15 | XMS | Encounter Summary ---
Demographics + + + | Address | [address] | | | [place] [address] | + + + | Home Phone [...] Team Providers + +------+ + | Care Lamp Shades Supervisor Name | Role | Phone | [...] [address] | | | | | [address] | [place] | | | | | [phone] | [address] | | | | | | [phone] | | | | | | | [...] Notes by Kylah Fraser CMA at 04/11/18 9509 Author: Kylah Fraser CMA Service: (none) Author Type: Doughnut Batter Mixer Filed: 04/19/18 1118 Encounter Date: 04/11/2018 Status: Signed Editing Clerk: Kylah Fraser CMA (Doughnut Batter Mixer) See telephone encounter 04/19/18. Karen pfeiffer in [...] | | | | | | [place] [address] | | | | | | [phone] | | | | | | | | +--------+ + + + + | 05/01/ | Procedure | Cardiology | | | | 2019 | visit | | | | +--------+ + + + + | 05/01/ | Office | Cardiology | Silvia, | | | 2019 | Visit | | PARISA Vernon [address] | | | | | | [place], | | | | | | [place] [address] | | | | | | [phone] | | | | | | | | +--------+ + + + + | 05/21/ | Implant | Cardiology | Daljit Singletary, | Remote Device | | 2019 | Monitor | | [address] | Interrogation | | | | | [place], | (Primary Dx); | | | | | [place] [address] | Pacemaker; | | | | | [phone] | Sinoatrial node | | | | [...]
--- OUTSIDE RECORDS SUMMARY | ~2020-04-15 | XMS | Encounter Summary ---
Demographics + + + | Address | [address] | | | [place] [address] | + + + | Home Phone [...] Providers + +------+ + | Care Wildlife Forensic Geneticist Name | Role | Phone | + [...] 2019 | | GASTROENTEROLOGY | [address], [place] | Syndrome | | | | [address] [place] | [address] [place], [place] | | | | | [address] [place], [place] | [address] | | | | | [address] | | | | | | [phone] | | | +--------+ + + + [...] | | | | | | [place] [address] | | | | | | [phone] | | | | | | | | +--------+ + + + + | 05/01/ | Procedure | Cardiology | | | | 2019 | visit | | | | +--------+ + + + + | 05/01/ | Office | Cardiology | Silvia, | | | 2019 | Visit | | PARISA Vernon [address] | | | | | | [place], | | | | | | [place] [address] | | | | | | [phone] | | | | | | | | +--------+ + + + + | 05/21/ | Implant | Cardiology | Daljit Singletary, | Remote Device | | 2019 | Monitor | | [address] | Interrogation | | | | | [place], | (Primary Dx); | | | | | [place] [address] | Pacemaker; | | | | | [phone] | Sinoatrial node | | | | | | dysfunction ([facility]) | | | | | | with symptomatic | | | | | | bradycardia | +--------+ + + + + documented as of this encounter Visit Diagnoses Not on filedocumented in this encounter"
--- OUTSIDE RECORDS SUMMARY | ~2020-04-15 | XMS | Encounter Summary ---
Demographics + + + | Address | [address] | | | [place] [address] | + + + | Home Phone [...] | [facility] [...] Team Providers + +------+ + | Care Fingerprint Technician Name | Role | Phone | + +------+ + PCP | Unavailable | + +------+ + Encounter Details +--------+ + + + + | Date | Type | Department | Care Team | Description | +--------+ + + + + | 01/14/ | Hospital | [facility] | Deburi, | BACKACHE NOS | | 2004 | Encounter | MEDICAL CENTER | MD Tai [address] | | | | | CLINICAL DECISION | SUSAN MANZO | | | | | [address] | [place] [address] | | | | | [place], [place] | [phone] | | | | | [address] | | | | | | [phone] | | | +--------+ + + + [...] | | | | | | [place] [address] | | | | | | [phone] | | | | | | | [...] | | | | | | [place] [address] | | | | | | [phone] | | | | | | | | +--------+ + + + + | 05/21/ | Implant | Cardiology | Daljit Singletary, | Remote Device | | 2019 | Monitor | | MD [address] [place] | Interrogation | | | | | [place], | (Primary Dx); | | | | | [place] [address] | Pacemaker; | | | | | [phone] | Sinoatrial node | | | | | | dysfunction (HCC) | | | | | | with symptomatic | | | | | | bradycardia | +--------+ + + + + documented as of this encounter Visit Diagnoses + + | Diagnosis | + + | Backache, unspecified | + + documented in this encounter"
--- OUTSIDE RECORDS SUMMARY | ~2020-04-15 | XMS | Encounter Summary ---
Demographics + + + | Address | [address] | | | [place] [address] | + + + | Home Phone [...] Team Providers + +------+ + | Care Stiff Leg Operator Name | Role | Phone | + +------+ + | Michael Amanda DO | PCP | | + +------+ + Encounter Details +--------+ + + + + | Date | Type | Department | Care Team | Description | +--------+ + + + + | 04/03/ | Hospital | [facility] | Jay Gambino MD | | | 2012 - | Encounter | [facility] | [address] | | | | | CARDIAC TRANSPLANT | [address] [place] | | | 04/04/ | | [address] | [place] [address] | | | 2012 | | [place] | [phone] | | | | | [address] | | | | | | [phone] | | | +--------+ + + + [...] 1960 ADMISSION DATE: 04/03/2013 DISCHARGE DATE: 04/04/2013 [id number] / [id number] ADMISSION DIAGNOSES: 1. Symptomatic premature ventricular contractions [...] study and ablati on. MOE GAY ADM:04/03/13 [id number] 04/04/13 [place] DISCHARGE SUMMARY [id number] [facility] PARISA Hughes [facility] MD Meena Pleitez THIS REPORT IS CONFIDENTIAL AND NOT TO BE RELEASED WITHOUT PROPER AUTHORIZATION. [facility] Mr. Gay was taken to the [...] 180 mg once daily. MOE GAY ADM:04/03/13 [id number] 04/04/13 DIS [place] DISCHARGE SUMMARY [id number] [facility] PARISA Hughes [facility] MD Meena Pleitez THIS REPORT IS CONFIDENTIAL AND NOT TO BE RELEASED WITHOUT PROPER AUTHORIZATION. [facility] 5. Docusate sodium 2 tablets once daily. 6. Marinol 10 mg twice daily. 7. Metoprolol succinate 200 mg once daily. 8. Oxycodone 10 mg 10 mg oral as needed. 9. Oxycodone 30 mg oral twice daily. 10. Pravastatin 40 mg at bedtime. 11. Promethazine 25 mg as needed. 12. Ranitidine 1 to 2 tablets once daily. 13. Bicknell oil 2 tablets twice daily. 14. Valacyclovir 500 mg once daily. There were no new medications or medication dosage changes at time of discharge. PLAN: 1. Mr. Gay will be discharged home on medications as noted above, including his usual m edications of diltiazem and metoprolol. 2. He will be seen and followed by Dr. Gambino on 16 at 9:00 a.m. at [facility], [address]. 3. He will contact our office earlier than scheduled appointment should he have any diffic ulty prior to that time. PARISA Hughes MD A P RICHIE/med #[id number] cc: MD Dona Pleitez ARNP Suwong Wongsuwan, MD Electronically Signed 04/12/13 1400 PARISA Hughes Electronically Signed 05/22/13 1245 Jay Gambino MD MOE GAY ADM:04/03/13 [id number] 04/04/13 DIS [place] DISCHARGE SUMMARY [id number] [facility] PARISA Hughes ES B [facility] Jay Gambino MD R THIS REPORT IS CONFIDENTIAL AND NOT TO BE RELEASED WITHOUT PROPER AUTHORIZATION.Electronica lly signed by Jael Brown at 05/22/2013 1:25 PM Dona Grossman ARNP - 04/04/2013 9:05 AM PDT PATIENT NAME: MOE GAY Sex/Age: M / 53Y : 1960 ADMISSION DATE: 04/03/2013 DISCHARGE DATE: 04/04/2013 [id number] / [id number] ADMISSION DIAGNOSES: 1. Symptomatic premature ventricular contractions [...] and ablati on. MOE GAY Jaimee ADM:04/03/13 [id number] 04/04/13 [place] DISCHARGE SUMMARY [id number] [facility] PARISA Hughes [facility] MD Meena Pleitez THIS REPORT IS CONFIDENTIAL AND NOT TO BE RELEASED WITHOUT PROPER AUTHORIZATION. [facility] Mr. Gay was taken to the [...] 180 mg once daily. MOE GAY ADM:04/03/13 [id number] 04/04/13 DIS [place] DISCHARGE SUMMARY [id number] [facility] PARISA Hughes [facility] MD Meena Pleitez THIS REPORT IS CONFIDENTIAL AND NOT TO BE RELEASED WITHOUT PROPER AUTHORIZATION. [facility] 5. Docusate sodium 2 tablets once daily. 6. Marinol 10 mg twice daily. 7. Metoprolol succinate 200 mg once daily. 8. Oxycodone 10 mg 10 mg oral as needed. 9. Oxycodone 30 mg oral twice daily. 10. Pravastatin 40 mg at bedtime. 11. Promethazine 25 mg as needed. 12. Ranitidine 1 to 2 tablets once daily. 13. Bicknell oil 2 tablets twice daily. 14. Valacyclovir 500 mg once daily. There were no new medications or medication dosage changes at time of discharge. PLAN: 1. Mr. Gay will be discharged home on medications as noted above, including his usual m edications of diltiazem and metoprolol. 2. He will be seen and followed by Dr. Gambino on 16 at 9:00 a.m. at [facility], [address]. 3. He will contact our office earlier than scheduled appointment should he have any diffic ulty prior to that time. PARISA Hughes MD A P RICHIE/med #[id number] cc: MD Dona Pleitez ARNP Suwong Wongsuwan, MD Electronically Signed 04/12/13 1400 PARISA Hughes MOE GAY ADM:04/03/13 [id number] 04/04/13 DIS [place] DISCHARGE SUMMARY [id number] [facility] PARISA Hughes [facility] MD Meena Pleitez THIS REPORT IS CONFIDENTIAL [...] | | | | | | [place] [address] | | | | | | [phone] | | | | | | | | +--------+ + + + + | 05/01/ | Procedure | Cardiology | | | | 2019 | visit | | | | +--------+ + + + + | 05/01/ | Office | Cardiology | Silvia, | | | 2019 | Visit | | PARISA Vernon [address] | | | | | | [place], | | | | | | [place] [address] | | | | | | [phone] | | | | | | | | +--------+ + + + + | 05/21/ | Implant | Cardiology | Daljit Singletary, | Remote Device | | 2019 | Monitor | | MD [address] [place] | Interrogation | | | | | [place], | (Primary Dx); | | | | | [place] [address] | Pacemaker; | | | | | [phone] | Sinoatrial node | | | | [...] + + + | Glucose | 94Comment: Nepalese | 65 - 99 mg/dL | [facility] [...] + | [facility] | [address] | [place] [address] | | | [facility] | | | | | LABORATORY [...] + | YESSY JONES | [address] | [place] [address] | | | HEART [facility] | | | | | LABORATORY | | | | + + + + + documented in this encounter Visit Diagnoses Not on filedocumented in this encounter"
--- OUTSIDE RECORDS SUMMARY | ~2020-04-15 | XMS | Encounter Summary ---
Demographics + + + | Address | [address] | | | [place] [address] | + + + | Home Phone [...] Providers + +------+ + | Care Video Rental Clerk Name | Role | Phone | + +------+ + | Kirk French MD | PCP | | + +------+ + Encounter Details +--------+ + + + + | Date | Type | Department | Care Team | Description | +--------+ + + + + | 01/21/ | Anesthesia | [facility] | Jarett Barakat | | | 2020 | Event | MED CTR MP INTRA OP | P, MD [address] | | | | | [address] | [place], [place] | | | | | [place], [place] | [address] | | | | | [address] | [phone] | | | | | [phone] | | | +--------+ + + + [...] | | | | | | [place] [address] | | | | | | [phone] | | | | | | | | +--------+ + + + + | 05/01/ | Procedure | Cardiology | | | | 2019 | visit | | | | +--------+ + + + + | 05/01/ | Office | Cardiology | [place], | | | 2019 | Visit | | PARISA Vernon W | | | | | | [place], | | | | | | [place] [address] | | | | | | [phone] | | | | | | | | +--------+ + + + + | 05/21/ | Implant | Cardiology | Daljit Singletary, | Remote Device | | 2019 | Monitor | | MD [facility] | Interrogation | | | | | [facility] [place], | (Primary Dx); | | | | | [place] [address] | Pacemaker; | | | | | [phone] | Sinoatrial node | | | | | | dysfunction (HCC) | | | | | | with symptomatic | | | | | | bradycardia | +--------+ + + + + documented as of this encounter Visit Diagnoses Not on filedocumented in this encounter"
--- OUTSIDE RECORDS SUMMARY | ~2020-04-15 | XMS | Encounter Summary ---
Demographics + + + | Address | [address] | | | [place] [address] | + + + | Home Phone [...] | Ascending | [place], | [address] | | | | | aortic | Janeen, LATHE SANDER | [place], | | | | | aneurysm | [address] | [place] | | | | | ([facility]) | [address] | [address] | | | | | Procedures | [place], | Phone: | | | | | ECHO | [place] | [phone] | | | | | Complete | [address] | Fax: | | | | | | Phone: | [phone] | | | | | | [phone] | | | | | | | Fax: | | | | | | | [phone] | | + +--------+ + + + [...] | MD [address] | [address] | | | | | hypertension | [address] | [place], | | | | | Sick sinus | [address] | [place] | | | | | syndrome | [place], [place] | [address] | | | | | (HCC) | [address] | Phone: | | | | | Ventricular | Phone: | [phone] | | | | | premature | [phone] | Fax: | | | | | depolarizati | Fax: | [phone] | | | | | on | [phone] | | | | | | Tachycardia, | | | | | | | unspecified | | | | | | | | | | | | | | Atherosclero | | | | | | | tic heart | | | | | | | disease of | | | | | | | capitan grande band | | | | | | [...] + + | 01/01/ | Office | [facility] | [place], | Ascending thoracic | | 2020 | Visit | CARDIOLOGY [address] | PARISA Vernon [address] | aortic aneurysm | | | | [place], | [place], | (HCC) (Primary Dx); | | | | [place] [address] | [place] [address] | Coronary artery | | | | [phone] | [phone] | disease involving | | | | | | capitan grande band coronary | | | | | | artery of capitan [place] band | | | | | | [...] encounter Patient Instructions Patient Instructions Vidhi Gillespie, Catering Operations Manager - 01/01/2020 7:30 AM PST1. Esau nue [...] Service: 01/01/2020 HISTORY OF PRESENT ILLNESS: Moe Sancehz is a 59 y.o. male with a history of critical coronary artery disea se involving cap[place] coronary artery of cap[place] heart without angina pectoris, essential hyper [...] for weight loss, he was defer to [facility], per [facility] to have some sort of [...] Preventative health care Coronary artery disease involving cap[place] band coronary artery of [place] heart without angina pectoris Cannabis abuse, daily [...] mg capsule Take 25 mg by mouth. [place]-3 Fatty Acids (SALMON OIL-1000 PO) CAPS, one capsule by mouth daily twice daily ondansetron (ZOFRAN ODT) 4 mg disintegrating tablet Take 4 mg by mouth every 8 hours as needed for Nausea. ondansetron (ZOFRAN) 4 mg tablet Take 4 mg by mouth. [facility] Check glucose as needed for hypoglycemia [...] was found Confirmed by GURJIT WINKLER, SYDNI ([id number]) on 06/06/2019 3:43:10 PM LAB RESULTS reviewed [...] BNP 48 06/02/2019 I reviewed records from [facility] for office visit on 06/06/2019 wh ich is summarized in the HPI. RESULTS- I reviewed reports from [facility]: No results found. Above data and testing is reviewed this visit; testing below is historical data unless othe rwise specified. ASSESSMENT: 1. Non-critical Coronary artery disease involving capitan [place] band coronary artery of capitan grande band heart [facility] angina pectoris: A.Normal exercise sestamibi stress [...] symptoms; no limitations of activities of the [place] [employer] functional class. Heart failure [...] to go back in 3 days to [place] for an attempt of ablation under general [...] advised to having his MRI done in [facility] which has a repeat MRI protocol for [...] advised to having his MRI done in [facility] which has a repeat MRI protocol for such situations. Patient also will need echocardiogram for his next appointmen t to evaluate his ascending aorta Vidhi Clemente, Catering Operations Manager am acting as a scribe on behalf of, and in the prese nce of PARISA Lomas. - Vidhi Gillespie, Catering Operations Manager 01/01/2020 5:29 PM I, PARISA Lomas, personally performed the services described in this documentati on, as scribed in my presence and it is both accurate and complete. -PARISA Lomas 01/01/2020 Portions of this chart may have been created with [employer] voice recognition software. Occasi onal wrong-word or [...] | | | | | | [place] [address] | | | | | | [phone] | | | | | | | | +--------+ + + + + | 05/01/ | Procedure | Cardiology | | | | 2019 | visit | | | | +--------+ + + + + | 05/01/ | Office | Cardiology | Silvia, | | | 2019 | Visit | | PARISA [address] | | | | | | [place], | | | | | | [place] [address] | | | | | | [phone] | | | | | | | | +--------+ + + + + | 05/21/ | Implant | Cardiology | Sydni Singletary, | Remote Device | | 2019 | Monitor | | [address] [place] | Interrogation | | | | | [place], | (Primary Dx); | | | | | [place] [address] | Pacemaker; | | | | | [phone] | Sinoatrial node | | | | [...] | Coronary artery disease involving capitan grande band coronary artery of capitan grande band heart without | | angina pectoris [...]
--- OUTSIDE RECORDS SUMMARY | ~2020-04-15 | XMS | Encounter Summary ---
Demographics + + + | Address | [address] | | | [place] [address] | + + + | Home Phone [...] Team Providers + +------+ + | Care Tassel Snipper Name | Role | Phone | + [...] | Palpitations | [address] | | | | | Procedures | [address] | [address] [place] | | | | | ECHO | [place], | [place], [place] | | | | | Complete | [place] [address] | [address] | | | | | | Phone: | Phone: | | | | | | [phone] | [phone] | | | | | | Fax: | Fax: | | | | | | [phone] | [phone] | +--------+--------+ + + + + Reason [...] | CARDIOLOGY [address] | [address] | (Primary Dx); PVC | | | | [place], | [place], | (premature | | | | [place] [address] | [place] [address] | ventricular | | | | [phone] | [phone] | contraction) | | | | | [...] present himself to the emergency department at [facility] in [place], [place]. Today, patient is apprehensive of the [...] tablet Take 1,000 mg by mouth Daily. [place]-3 Fatty Acids (SALMON OIL-1000 PO) CAPS, [...] tablet Take 1,000 mg by mouth Daily. 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 EKG showed normal sinus rhythm with [...] I will d iscuss this option with legal recovery specialist in [place]. 7. Followup in 2-4 weeks. Portions of this report were transcribed using voice recognition software. Every effort wa s made to ensure accuracy; however, inadvertent computerized boxing promoter errors may be pre sent. documented in [...] | | | | | | [place] [address] | | | | | | [phone] | | | | | | | | +--------+ + + + + | 05/01/ | Procedure | Cardiology | | | | 2019 | visit | | | | +--------+ + + + + | 05/01/ | Office | Cardiology | [place]via, | | | 2019 | Visit | | PARISA Vernon [address] | | | | | | [place], | | | | | | [place] [address] | | | | | | [phone] | | | | | | | | +--------+ + + + + | 05/21/ | Implant | Cardiology | Daljit Singletary, | Remote Device | 2019 | Monitor | | [address] [place] | Interrogation | | | | | [place], | (Primary Dx); | | | | | [place] [address] | Pacemaker; | | | | | [phone] | Sinoatrial node | | | | [...] Performed At | + + + | [facility] | [facility] | | Department [address] [place] [address] | [place] | | [ rep [address]] [ rep [facility] | | [facility]] Signed | - IMAGING | | | | | Patient Name: VICTOR HUGOMONAMOE W | | | Physician: MIGUELINA : 1960 Age: 52 Sex: M Unit | | | #: [id number] Exam Date: 12/30/12 Location: | | | [facility] Report #: [id number] Page: | | | %(RAD)RES..mtdd.print.filter("pg") of %(RAD) | | | RES..mtdd.print.filter("tpg") | | | | | | Accession Number: [id number] | | | E C H O C A R D I O G R A P H Y R E P O R T | | | HEIGHT: 76" WEIGHT: 270# | | | WINDOWS DESKTOP ENGINEER: JAMEEL REFERRING DR: TIMMY DRAKE DR: | [...] | | | Transcribed Date/Time: 12/30/2012 16:34 Enterprise Application Analyst: | | | <<Signature on File>> | | | Daljit | | | MD [facility] FASE01/02/13 0955 <Electronically signed by | | | Daljit Singletary MD, FACC, FACP, ADELINE, YEN> Daljit | | | MD CLEOPATRA Singletary 12/30/12 1608 Enterprise Application Analyst: Jessica | | | Alpmralqcbqex16/08/13 1634 Daljit Singletary MD FACC | | | FASE | | + + + + + + + + | Performing | Address | City/State/Zipcode | Phone Number | | Organization | | | | + + + + + | [facility] | [address] | [place] | [phone] | | [facility] | | [address] | | | - IMAGING | | | | + + + + + documented in this encounter Visit Diagnoses + + | Diagnosis | + + | Palpitations - Primary | + + | PVC (premature ventricular contraction) Other premature beats | + + documented in this encounter
--- OUTSIDE RECORDS SUMMARY | ~2020-04-15 | XMS | Encounter Summary ---
Demographics + + + | Address | [address] | | | [place] [address] | + + + | Home Phone [...] Providers + +------+ + | Care Full Stack Python Developer Name | Role | Phone | [...] W | Dx) | | | | [place] [address] | [address] [place] | | | | | [place], [place] | [place] [address] | | | | | [address] | [phone] | | | | | [phone] | | | +--------+ + + + [...] + + + +---------+ + + | [place]nys[place]-3 Fatty | CAPS, one capsule by | [...] W | | | | | | [address] [place], | | | | | | [place] [address] | | | | | | [phone] | | | | | | | | +--------+ + + + + | 05/01/ | Procedure | Cardiology | | | | 2019 | visit | | | | +--------+ + + + + | 05/01/ | Office | Cardiology | [place], | | | 2019 | Visit | | PARISA Vernon [address] | | | | | | [place], | | | | | | [place] [address] | | | | | | [phone] | | | | | | | | +--------+ + + + + | 05/21/ | Implant | Cardiology | Daljit Singletary, | Remote Device | | 2019 | Monitor | | [address] | Interrogation | | | | | [place], | (Primary Dx); | | | | | [place] [address] | Pacemaker; | | | | | [phone] | Sinoatrial node | | | | [...] W?MRN: | | | | | | [id number] | | | [id number] | | | his | | | [...] | | | ent/60 | | | [id number] | | | -[id number] | | | [...] | | | St. | | | [place] | | | y H. | | [...] | | | St. | | | [place] | | | y H. | | [...] | | | St. | | | [place] | | | y H. | | [...] | | | St. | | | [place] | | | y H. | | [...] | | | St. | | | [place] | | | y | | | [...] | | | ext. | | | [address] | | | or go | | [...] [address] | [place] | [phone] | | [facility] | | [address] | | | - LABORATORY | | [...] ST. | [address] | [place], [place] | [phone] | | [facility] | | [address] | | | - LABORATORY | | [...] | | | FILTRATION | mL/min/1.73m2 | [facility] | | | [place] | RATE,ESTIMATED | | MEDICAL | | | | mL/min/1.24p0Xrkc than | | CENTER - | | [...] + | [facility] | [address] | [place] | [phone] | | [facility] | | [address] | | | - LABORATORY | | [...] [address] | [place] | [phone] | | [facility] | | [address] | | | - LABORATORY | | | | + + + + + documented in this encounter Visit Diagnoses + + | Diagnosis | + + | Bronchitis - Primary Bronchitis, not specified as acute or chronic | + + documented in this encounter"
--- OUTSIDE RECORDS SUMMARY | ~2020-04-15 | XMS | Encounter Summary ---
Demographics + + + | Address | [address] | | | [place] [address] | + + + | Home Phone [...] Providers + +------+ + | Care Retail Manager In Training Name | Role | Phone | [...] | initial encounter; | | | | [place], [place] | | Elevated blood | | | | [address] | | pressure reading; | | | | [phone] | | Numbness and | | | [...] + + + +---------+ + + | Martelle-3 Fatty | CAPS, one capsule by | [...] | | | | | | [place] [address] | | | | | | [phone] | | | | | | | | +--------+ + + + + | 05/01/ | Procedure | Cardiology | | | | 2019 | visit | | | | +--------+ + + + + | 05/01/ | Office | Cardiology | [place], | | | 2019 | Visit | | PARISA Vernon W | | | | | | [place], | | | | | | [place] [address] | | | | | | [phone] | | | | | | | | +--------+ + + + + | 05/21/ | Implant | Cardiology | Daljit Singletary, | Remote Device | | 2020 | Monitor | | [facility] | Interrogation | | | | | [place], | (Primary Dx); | | | | | [place] [address] | Pacemaker; | | | | | [phone] | Sinoatrial node | | | | [...]
--- OUTSIDE RECORDS SUMMARY | ~2020-04-15 | XMS | Encounter Summary ---
Demographics + + + | Address | [address] | | | [place] [address] | + + + | Home Phone [...] Providers + +------+ + | Care Pigment Supplier Name | Role | Phone | + +------+ + | Kirk French MD | PCP | | + +------+ + Encounter Details +--------+ + + + + | Date | Type | Department | Care Team | Description | +--------+ + + + + | 01/05/ | Hospital | [facility] | Emmanuel Daniel MD | Functional diarrhea | | 2019 | Encounter | MED CTR MP INTRA OP | [address], [place] | (Primary Dx); Weight | | | | [address] | [address] [place], [place] | loss | | | | [place], [place] | [address] | | | | | [address] | | | | | | [phone] | | | +--------+ + + + [...] for a few hours. Date Last Reviewed: 09/22/201619998476-5341 [employer]. [address] [place] [address], [place] [address]. All righ ts reserved. This information is [...] vomiting, or vomiting blood Date Last Reviewed: 05/22/201619993642-2711 [employer]. [address] [place] [address]. All [facility] hospital[facility] ts reserved. This information is not [...] You can't be awakened Date Last Reviewed: 09/08/201619995743-7847 [employer]. [address] [place] [address], [place] [address]. All righ ts reserved. This information is [...] + + +---------+ + + | [place]-3 Fatty | CAPS, one capsule by | [...] | | | | | | [place] [address] | | | | | | [phone] | | | | | | | | +--------+ + + + + | 05/01/ | Procedure | Cardiology | | | | 2019 | visit | | | | +--------+ + + + + | 05/01/ | Office | Cardiology | [place], | | | 2019 | Visit | | PARISA Vernon [address] | | | | | | [place], | | | | | | [place] [address] | | | | | | [phone] | | | | | | | | +--------+ + + + + | 05/21/ | Implant | Cardiology | Daljit Singletary, | Remote Device | 2019 | Monitor | | [address] | Interrogation | | | | | [place], | (Primary Dx); | | | | | [place] [address] | Pacemaker; | | | | | [phone] | Sinoatrial node | | | | [...] | REFERENCE LAB | | [place] [id number] Instructor Hairspring: Miguel Galarza MD, Phone: | [facility]SH [facility] | | [phone] | | + + + + + + + + | Performing | Address | City/State/Zipcode | Phone Number | | Organization | | | | + + + + + | REFERENCE LAB | [address] | [place], [place] | [phone] | | [facility] | [address] | [address] | | + + + + + [...] [address], | REFERENCE LAB | | [place], [place] [id number] Instructor Hairspring: Miguel Galarza MD, Phone: | [facility] | | [phone] | | + + + + + + + + | Performing | Address | City/State/Zipcode | Phone Number | | Organization | | | | + + + + + | REFERENCE LAB | [address] | [place], [place] | [phone] | | [facility] | [facility] | [address] | | + + + + + [...] [address] | [place] | [phone] | | [facility] | | [address] | | | - LABORATORY | | [...] [address] | [place] | [phone] | | [facility] | | [address] | | | - LABORATORY | | [...] ST. | [address] | [place] | [phone] | | [facility] | | [address] | | | - LABORATORY | | [...] | | Antigen, | | | [facility] | | | Stool | | [...] [address] | [place] | [phone] | | [facility] | | [address] | | | - LABORATORY | | [...] + | [facility] | [address] | [place], [place] | [phone] | | [facility] | | [address] | | | - [...] [address] | [place] | [phone] | | [facility] | | [address] | | | - LABORATORY | | | | + + + + + EGD (01/05/2019 8:36 AM PST) + + | Specimen | + + | | + + + + -+ | Narrative | Performed At | + + -+ | | [facility] | | GastroenterologyPatient Name: Moe SanchezProcedpasha Date: | PROVATION | | 01/05/2019 8:36 AMMRN: [id number] #: [id number] of : | | | 9Admit Type: AmbulatoryAge: 58Room: [facility] 01Gender: MaleNote | | | Status: FinalizedAttending MD: Emmanuel Daniel , MDProcedure: | | | Upper GI endoscopyIndications: Diarrhea, Weight | | | lossProviders: Emmanuel Daniel MD, Heidi Mixon [place], | | | RN, Kim Hicks, Gas Operations Analyst, | | | Jarett Barakat MD (Anesthesia [...] physician, the nurse, the anesthesiologist and the safety technician | | | in the endoscopy [...] | | Imaging was performed using the [employer] | | | Endoscopy (FICE) [...] Scope In: 8:43:57 AMScope Out: 8:49:50 AM [facility]. | | | [facility], [address] [place] [address] | | | [phone] | | |Recommendation: | | | - [...] |Scope Out: 8:49:50 AM | | | [facility]. [facility], [facility] [address] [place], [place] | | | [address] | | + + -+ + +---------+ [...] | PROVATION | | 01/05/2019 8:36 AMMRN: [id number] #: [id number] of : | | | 9Admit Type: AmbulatoryAge: 58Room: [facility] 01Gender: MaleNote | | | Status: FinalizedAttending MD: Emmanuel Daniel , MDProcedure: | | | ColonoscopyIndications: Clinically significant diarrhea of | | | unexplained origin, Weight lossProviders: | | | Emmanuel Daniel MD, Heidi An RN, Kim | | | Fiorella Hicks, Gas Operations Analyst, Jarett Alejo | | | MD Roshni [...] | | | the anesthesiologist and the safety technician in the endoscopy suite. | | [...] | 9:06:28 AM [facility], [address] [place] [address], | | | [place] [address] | | | - Discharge patient to [...] Out: 9:06:28 AM | | | [facility], [address] [place] [address], [place], [place] | | | [address] | | + + -+ + +---------+ [...] | | | (atherosclerotic heart disease of [place] coronary artery without | | | angina [...] chronic or | | | microscopic colitis. [facility]:C3NR GROSS DESCRIPTION: A. The | | | specimen, labeled "[place], duodenal biopsy" is received in formalin | | | and consists of seven 0.1-0.5 cm lin fragments. Entirely submitted in | | | (A1). B. The specimen, labeled "[place], right colon" is received | | | in formalin and consists of six 0.2-0.3 cm lin fragments. Entirely | | | submitted in (B1). C. The specimen, labeled "[facility], left colon" | | | is received in formalin and consists of six 0.2-0.3 cm lin-pink | | | fragments. Entirely submitted in (C1). am:AMB:portillo PERFORMING | | | LABORATORY: The technical component was performed by [facility] | | | [employer] [address] [place] [address] (Flamer Sealer: | | | Kailey Stafford MD; CLIA# [id number]). Professional interpretation was | | | performed by [employer], [facility], [address] | | | [place] [address] (Flamer Sealer: Ishaan | | | Anthony Dao; CLIA#: [id number]). Diagnostician: Ishaan Fitzpatrick | | | Sylwia [...] ONCE PRN, Wheezing, | | | Starting [facility] 01/05/19 at 0924, | | | [...] ONCE | | | PRN, Nausea, Starting [facility] 01/05/19 | | | at 0924, For 1 dose, | | | Recovery/Phase I | | + +---+ | | | + +---+ documented in this encounter
--- OUTSIDE RECORDS SUMMARY | ~2020-04-15 | XMS | Encounter Summary ---
Demographics + + + | Address | [address] | | | [place] [address] | + + + | Home Phone [...] Providers + +------+ + | Care Landscaping Supervisor Name | Role | Phone | [...] | Palpitations | [address] | | | | | Procedures | [address] | [address] [place] | | | | | ECHO | [place], | [place], [place] | | | | | Complete | [place] [address] | [address] | | | | | | Phone: | Phone: | | | | | | [phone] | [phone] | | | | | | Fax: | Fax: | | | | | | [phone] | [phone] | +--------+--------+ + + + + Reason [...] + + | 12/21/ | Office | [facility] | Daljit Singletary, | Palpitations | | 2012 | Visit | CARDIOLOGY [address] | (Primary Dx); PVC | | | | [place], | [place], | (premature | | | | [place] [address] | [place] [address] | ventricular | | | | [phone] | [phone] | contraction) | | | | | [...] present himself to the emergency department at [facility] in [place], [place]. Today, patient is apprehensive of the [...] tablet Take 1,000 mg by mouth Daily. [place]-3 Fatty Acids (SALMON OIL-1000 PO) CAPS, [...] tablet Take 1,000 mg by mouth Daily. [place]-3 Fatty Acids (SALMON OIL-1000 PO) CAPS, [...] Sanchez Date: December 21, 2012 : 1960 Electronic Instrument Trades Worker: PARISA Velazquez Device Molding Line Operator: IAMINTOITtronic Sense (mV) Impedance (?) Capture (V) Capture (ms) A Lead 4-5.6 423 1.5 0.09 RV Lead >31.36 539 2.0 0.09 LV Lead Battery Impedance (?): 301 Battery Voltage (V): 2.8 CO Interval (ms): 140 AR Interval (ms): 210 VA Conduction: Mode Switch Events: N/A % of time: -SAWMILL RELIEF WORKER: 0.6 AP-SAWMILL RELIEF WORKER: 1.3 -VS: 23.9 AP-VS: 74.2 SAWMILL RELIEF WORKER: Magnetic Rate: 85 LINDA: 65 LEAH: [...] himself to the emerge ncy department at [facility] in [place], [place]. EKG showed normal sinus rhythm with [...] I will d iscuss this option with pathology specialist in [place]. 7. Followup in 2-4 weeks. Portions of this report were transcribed using voice recognition software. Every effort wa s made to ensure accuracy; however, inadvertent computerized coordinator integrated marketing errors may be pre sent. documented in [...] | | | | | | [place] [address] | | | | | | [phone] | | | | | | | [...] | | | | | | [place] [address] | | | | | | [phone] | | | | | | | | +--------+ + + + + | 05/21/ | Implant | Cardiology | Daljit Singletary, | Remote Device | 2019 | Monitor | | [address] [place] | Interrogation | | | | | [place], | (Primary Dx); | | | | | [place] [address] | Pacemaker; | | | | | [phone] | Sinoatrial node | | | | [...] [facility] Diagnostic Imaging | [facility] | | Department [address] [place] [address] | [facility] | | [ rep ct street[address]] [ rep [facility] | | [facility]] Signed | - IMAGING | | | | | Patient Name: VICTOR HUGOMONAMOE W | | | Physician: MIGUELINA : 1960 Age: 52 Sex: M Unit | | | #: [id number] Exam Date: 12/30/12 [place]: | | | [facility] [place] #: [id number] Page: | | | %(RAD)RES..mtdd.print.filter("pg") of %(RAD) | | | RES..mtdd.print.filter("tpg") | | | | | | Accession Number: [id number] | | | E C H O C A R D I O G R A P H Y R E P O R T | | | HEIGHT: 76" WEIGHT: 270# | | | COMMERCIAL PRODUCER: JAMEEL REFERRING DR: TIMMY DRAKE DR: | [...] | | | Transcribed Date/Time: 12/30/2012 16:34 Manager Leasing: | | | <<Signature on File>> | | | Daljit | | | MD Gemini [facility] FASE01/02/13 0955 <Electronically signed by | | | Daljit Singletary MD, FACC, FACP, ADELINE, YEN> Daljit | | | MD CLEOPATRA Singletary 12/30/12 1608 Manager Leasing: Jessica | | | Otdgfuotiigoi67/08/13 1634 Daljit Singletary MD FACC | | | FASE | | + + + + + + + + | Performing | Address | City/State/Zipcode | Phone Number | | Organization | | | | + + + + + | [facility] | [address] | [place] | [phone] | | [facility] | | [address] | | | - IMAGING | | | | + + + + + documented in this encounter Visit Diagnoses + + | Diagnosis | + + | Palpitations - Primary | + + | PVC (premature ventricular contraction) Other premature beats | + + documented in this encounter
--- OUTSIDE RECORDS SUMMARY | ~2020-04-15 | XMS | Encounter Summary ---
Demographics + + + | Address | [address] | | | [place] [address] | + + + | Home Phone [...] Providers + +------+ + | Care Pressure Sealer And Tester Name | Role | Phone | + +------+ + PCP | Unavailable | + +------+ + Encounter Details +--------+ + + + + | Date | Type | Department | Care Team | Description | +--------+ + + + + | 01/15/ | [facility] | [facility] | Emmanuel Daniel MD | | | 1994 | Encounter | MED CTR GENERIC OP | [address] | | | | | CONV DEPT [address] | [address] [place] [address] | | | | | [place], | [address] | | | | | [place] [address] | | | | | | [phone] | | | +--------+ + + + [...] W | | | | | | [place], | | | | | | [place] [address] | | | | | | [phone] | | | | | | | | +--------+ + + + + | 05/01/ | Procedure | Cardiology | | | | 2019 | visit | | | | +--------+ + + + + | 05/01/ | Office | Cardiology | Silvia, | | | 2019 | Visit | | PARISA Vernon W | | | | | | [place], | | | | | | [place] [address] | | | | | | [phone] | | | | | | | | +--------+ + + + + | 05/21/ | Implant | Cardiology | Daljit Singletary, | Remote Device | 2019 | Monitor | | [address] [place] | Interrogation | | | | | [place], | (Primary Dx); | | | | | [place] [address] | Pacemaker; | | | | | [phone] | Sinoatrial node | | | | | | dysfunction (HCC) | | | | | | with symptomatic | | | | | | bradycardia | +--------+ + + + + documented as of this encounter Visit Diagnoses Not on filedocumented in this encounter"
--- OUTSIDE RECORDS SUMMARY | ~2020-04-15 | XMS | Encounter Summary ---
Demographics + + + | Address | [address] | | | [place] [address] | + + + | Home Phone [...] Team Providers + +------+ + | Care Shagger Name | Role | Phone | + [...] [address] | | | | | | [place], [place] | (Fax) | | | | | [address] | | | | | | [phone] | | | +--------+ + + + [...] | | | | | | [place] [address] | | | | | | [phone] | | | | | | | | +--------+ + + + + | 05/01/ | Procedure | Cardiology | | | | 2019 | visit | | | | +--------+ + + + + | 05/01/ | Office | Cardiology | Silvia, | | | 2019 | Visit | | PARISA [place] [address] | | | | | | [place], | | | | | | [place] [address] | | | | | | [phone] | | | | | | | | +--------+ + + + + | 05/21/ | Implant | Cardiology | Daljit Singletary, | Remote Device | | 2019 | Monitor | | [address] | Interrogation | | | | | [place], | (Primary Dx); | | | | | [place] [address] | Pacemaker; | | | | | [phone] | Sinoatrial node | | | | | | dysfunction (HCC) | | | | | | with symptomatic | | | | | | bradycardia | +--------+ + + + + documented as of this encounter Visit Diagnoses Not on filedocumented in this encounter"
--- OUTSIDE RECORDS SUMMARY | ~2020-04-15 | XMS | Encounter Summary ---
Demographics + + + | Address | [address] | | | [place] [address] | + + + | Home Phone [...] Providers + +------+ + | Care Orthopedic Radiologic Technologist Name | Role | Phone | + +------+ + | Kirk French MD | PCP | | + +------+ + Encounter Details +--------+ + + + + | Date | Type | Department | Care Team | Description | +--------+ + + + + | 01/05/ | Orders Only | [facility] | Emmanuel Daniel MD | | | 2019 | | [facility] | [address], [place] | | | | | PATHOLOGY [address] | [address] [place], [place] | | | | | BLVD [place], [place] | [address] | | | | | [address] | | | | | | [phone] | | | +--------+ + + + [...] | | | | | | [place] [address] | | | | | | [phone] | | | | | | | | +--------+ + + + + | 05/01/ | Procedure | Cardiology | | | | 2019 | visit | | | | +--------+ + + + + | 05/01/ | Office | Cardiology | Silvia, | | | 2019 | Visit | | PARISA Vernon [address] | | | | | | [place], | | | | | | [place] [address] | | | | | | [phone] | | | | | | | | +--------+ + + + + | 05/21/ | Implant | Cardiology | Daljit Singletary, | Remote Device | | 2019 | Monitor | | [facility] | Interrogation | | | | | [place], | (Primary Dx); | | | | | [place] [address] | Pacemaker; | | | | | [phone] | Sinoatrial node | | | | [...] | | | (atherosclerotic heart disease of [place] coronary artery without | | | angina [...] or | | | microscopic colitis. BES:[facility]:C3NR GROSS DESCRIPTION: A. The | | | specimen, labeled "[place], duodenal biopsy" is received in formalin | | | and consists of seven 0.1-0.5 cm lin fragments. Entirely submitted in | | | (A1). B. The specimen, labeled "[place], right colon" is received | | | in formalin and consists of six 0.2-0.3 cm lin fragments. Entirely | | | submitted in (B1). C. The specimen, labeled "[place], left colon" | | | is received in formalin and consists of six 0.2-0.3 cm lin-pink | | | fragments. Entirely submitted in (C1). am:AMB:rds PERFORMING | | | LABORATORY: The technical component was performed by [employer] | | | [employer], [address] [place] [address] (Farm Management Professor: | | | Kailey Stafford MD; CLIA# [id number]). Professional interpretation was | | | performed by [employer], [facility], [facility] | | | [place] [address] (Farm Management Professor: Ishaan | | | Anthony Dao; CLIA#: [id number]). Diagnostician: Ishaan Bay MD Pathologist Electronically Signed [...]
--- OUTSIDE RECORDS SUMMARY | ~2020-04-15 | XMS | Encounter Summary ---
Demographics + + + | Address | [address] | | | [place] [address] | + + + | Home Phone [...] Team Providers + +------+ + | Care Extension Division Director Name | Role | Phone | [...] | (Fax) | | | | | [address] | | | | | | [phone] | | | +--------+ + + + [...] | | | | | | [place] [address] | | | | | | [phone] | | | | | | | | +--------+ + + + + | 05/01/ | Procedure | Cardiology | | | | 2019 | visit | | | | +--------+ + + + + | 05/01/ | Office | Cardiology | Silvia, | | | 2019 | Visit | | PARISA Vernon [address] | | | | | | [place], | | | | | | [place] [address] | | | | | | [phone] | | | | | | | | +--------+ + + + + | 05/21/ | Implant | Cardiology | Daljit Singletary, | Remote Device | | 2019 | Monitor | | [address] [place] | Interrogation | | | | | [place], | (Primary Dx); | | | | | [place] [address] | Pacemaker; | | | | | [phone] | Sinoatrial node | | | | | | dysfunction (HCC) | | | | | | with symptomatic | | | | | | bradycardia | +--------+ + + + + documented as of this encounter Visit Diagnoses Not on filedocumented in this encounter"
--- OUTSIDE RECORDS SUMMARY | ~2020-04-15 | XMS | Encounter Summary ---
Demographics + + + | Address | [address] | | | [place] [address] | + + + | Home Phone [...] Team Providers + +------+ + | Care Bellstaff Name | Role | Phone | + [...] + | 07/01/ | Hospital | [facility] | Scotty Galdamez, | DDD (degenerative | | 2018 | Encounter | MED CTR XRAY [address] | MILLER HEAD ASSISTANT WET PROCESS [address] | disc disease), | | | | [place] | [address] | lumbar; Chronic | | | | [place] [address] | [place] [address] | left-sided low back | | | | [phone] | [phone] | pain with left-sided | | | [...] + + + +---------+ + + | [place]-3 Fatty | CAPS, one capsule by | [...] | | | | | | [place] [address] | | | | | | [phone] | | | | | | | | +--------+ + + + + | 05/01/ | Procedure | Cardiology | | | | 2019 | visit | | | | +--------+ + + + + | 05/01/ | Office | Cardiology | Silvia, | | | 2019 | Visit | | PARISA Vernon [address] | | | | | | [place], | | | | | | [place] [address] | | | | | | [phone] | | | | | | | | +--------+ + + + + | 05/21/ | Implant | Cardiology | SunshinecherelleDaljit, | Remote Device | | 2019 | Monitor | | [address] [facility] | Interrogation | | | | | [place], | (Primary Dx); | | | | | [place] [address] | Pacemaker; | | | | | [phone] | Sinoatrial node | | | | [...]
--- OUTSIDE RECORDS SUMMARY | ~2020-04-15 | XMS | Encounter Summary ---
Demographics + + + | Address | [address] | | | [place] [address] | + + + | Home Phone [...] Team Providers + +------+ + | Care Photogrammetric Technician Name | Role | Phone | [...] | | CARDIOLOGY [address] | Janeen, [employer] [address] | Clearance) | | | | [place], | [place], | | | | | [place] [address] | [place] [address] | | | | | [phone] | [phone] | | | | | | | [...] | | | | | | [place] [address] | | | | | | [phone] | | | | | | | | +--------+ + + + + | 05/01/ | Procedure | Cardiology | | | | 2019 | visit | | | | +--------+ + + + + | 05/01/ | Office | Cardiology | Silvia, | | | 2019 | Visit | | PARISA Vernon [address] | | | | | | [place], | | | | | | [place] [address] | | | | | | [phone] | | | | | | | | +--------+ + + + + | 05/21/ | Implant | Cardiology | Daljit Singletary, | Remote Device | 2019 | Monitor | | [facility] | Interrogation | | | | | [place], | (Primary Dx); | | | | | [place] [address] | Pacemaker; | | | | | [phone] | Sinoatrial node | | | | | | dysfunction (HCC) | | | | | | with symptomatic | | | | | | bradycardia | +--------+ + + + + documented as of this encounter Visit Diagnoses Not on filedocumented in this encounter"
--- OUTSIDE RECORDS SUMMARY | ~2020-04-15 | XMS | Encounter Summary ---
Demographics + + + | Address | [address] | | | [place] [address] | + + + | Home Phone [...] + +------+ + | Care Manager Of Operations Name | Role | Phone | [...] type ER | [address] | [address] | | | | | FUP | ST [place] | [place], | | | | | Procedures | [place], [place] | [place] [address] | | | | | FUP - SUW & | [address] | Phone: | | | | | EVM PT, LAST | Phone: | [phone] | | | | | SEEN | [phone] | Fax: | | | | | 08-24-18 | Fax: | [phone] | | | | | | [phone] | | +--------+ + + + + [...] | | | | CENTER [address] [place] [place] | [address] [place] | (Primary Dx) | | | | [place], [place] | [place] [address] | | | | | [address] | [phone] | | | | | [phone] | | | +--------+ + + + [...] + + + +---------+ + + | [place]-3 Fatty | CAPS, one capsule by [...] | | | | | | [place] [address] | | | | | | [phone] | | | | | | | | +--------+ + + + + | 05/01/ | Procedure | Cardiology | | | | 2019 | visit | | | | +--------+ + + + + | 05/01/ | Office | Cardiology | Silvia, | | | 2019 | Visit | | PARISA [place] [address] | | | | | | [place], | | | | | | [place] [address] | | | | | | [phone] | | | | | | | | +--------+ + + + + | 05/21/ | Implant | Cardiology | Daljit Singletary, | Remote Device | 2019 | Monitor | | [address] [place] | Interrogation | | | | | [place], | (Primary Dx); | | | | | [place] [address] | Pacemaker; | | | | | [phone] | Sinoatrial node | | | | [...] | | | | ANGELA MARADIAGA MD ([id number]) | | | | | | on [...] [address] | [place] | [phone] | | [facility] | | [address] | | | - LABORATORY | | [...] [address] | [place] | [phone] | | [facility] | | [address] | | | - LABORATORY | | [...] - 1.030 | [facility] | | | [place], | | | [facility] | | [...] [address] | [place] | [phone] | | [facility] | | [address] | | | - LABORATORY | | [...] [address] | [place] | [phone] | | [facility] | | [address] | | | - LABORATORY | | [...] [address] | [place] | [phone] | | [facility] | | [address] | | | - LABORATORY | | [...] [address] | [place] | [phone] | | [facility] | | [address] | | | - LABORATORY | | [...] | 0.96 | 0.60 - 1.30 | [facility] | | | | | mg/dL [...] | | MEDICAL | | | | mL/min/1.18f8Rkjc than | | CENTER - | | [...] [address] | [place] | [phone] | | [facility] | | [address] | | | - LABORATORY | | [...] + | [facility] | [address] | [place] | [phone] | | [facility] | | [address] | | | - LABORATORY | | [...] | | | | HIREN WINKLER, ANGELA ([id number]) | | | | | | on [...]
--- OUTSIDE RECORDS SUMMARY | ~2020-04-15 | XMS | Encounter Summary ---
Demographics + + + | Address | [address] | | | [place] [address] | + + + | Home Phone [...] Providers + +------+ + | Care Vice Chairman Name | Role | Phone | [...] + + | 07/12/ | Office | [facility] | Michael Amanda, | Preventative health | | 2013 | Visit | [facility] [place] | DO [address] | care (Primary Dx); | | | | [address] | [place], [place] | Prostate cancer | | | | [place], [place] | [address] | screening; | | | | [address] | | Hypercholesterolemia | | | | [phone] | | ; Hypertension; | | | [...] clear cause was found. He has seen manager transportation and has a rechec k plan. Possible [...] | | | | | | [place] [address] | | | | | | [phone] | | | | | | | | +--------+ + + + + | 05/01/ | Procedure | Cardiology | | | 2019 | visit | | | | +--------+ + + + + | 05/01/ | Office | Cardiology | Silvia, | | | 2019 | Visit | | [address] | | | | | | [place], | | | | | | [place] [address] | | | | | | [phone] | | | | | | | | +--------+ + + + + | 05/21/ | Implant | Cardiology | Daljit Singletary, | Remote Device | 2019 | Monitor | | [address] | Interrogation | | | | | [place], | (Primary Dx); | | | | | [place] [address] | Pacemaker; | | | | | [phone] | Sinoatrial node | | | | [...]
--- OUTSIDE RECORDS SUMMARY | ~2020-04-15 | XMS | Encounter Summary ---
Demographics + + + | Address | [address] [place] [address] [address] | | | [place] [address] | + + + | Home Phone [...] [place] | | | | | [address] | | + + + + + Care Team Providers + +------+ + | Care Blood Tester Name | Role | Phone | [...] Chest pain | Farooq Almaguer, | [address] | | | | | Bradycardia | DO [address] | [address] [place] | | | | | Procedures | [address] | Mailcode: | | | | | | Palak Desai | [facility] | | | | | TRANSTHORACI | [place], [place] | for Health | | | | | C | [address] | and Healing, | | | | | ECHOCARDIOGR | Phone: | Building 1 | | | | | AM, ADULT | [phone] | [place], [place] | | | | | | Fax: | [address] | | | | | | [phone] | Phone: | | | | | | | [phone] | +--------+--------+ + + + + Reason [...] | | | | | | | [place] [address] | | | | | | | Phone: | | | | | | | [phone] | | | | | | | Fax: | | | | | | | [phone] | | +--------+--------+ + + + + Encounter Details +--------+---------+ + + + | Date | Type | Department | Care Team | Description | +--------+---------+ + + + | 02/03/ | Office | Cardiology General | Arlette Drew, | Chest pain (Primary | | 2010 | Visit | at [facility] [address] | MD | Dx); Bradycardia; | | | | Ave Mailcode: CH7C | | Pacemaker | | | | [facility] | | | | | | and Healing, | | | | | | Building | | | | | | Floor [place], [place] | | | | | | [address] | | | | | | [phone] | | | +--------+---------+ + + + [...] per Dr. Drew's note. Farooq Jamil DO Rock Climbing Team Member Clinical terminal carman/ Division of Cardiovascular Medicine Yajaira Borges, [place] - 02/09/2011 12:59 PM PDT PACEMAKER HISTORY Primary Care Provider: Darion Holden DO Visitor Services Assistant: Arlette Drew MD Moe Sanchez is a [...] chamber permanent pacemaker implantation on 06/14/09 in [place], Chronic smoker, mild DIDIER, bip olar disorder with anxiety who presents for second opinion regarding his syncopal episodes. Pt. started noticing dizzy spells and episodes of syncope about 3 years ago , pacemaker was put at the recommendation of Visitor Services Assistant Dr. Singletary from [place]. [place]. Pt. states lala bhatti was put>1 [...] form tilt table testing but NA at [facility] May need to involve endocrine and [...] Dr. Omero DREW MD CARDIOLOGY - GENERAL [address] Mailcode: Ch9[facility], 9th Floor [facility] [address] documented in this en counter [...] [facility] [address] [address] [facility] | REGIONAL | | [place] [address] | LABORATORY | + + + + + + + + | Performing | Address | City/State/Zipcode | Phone Number | | Organization | | | | + + + + + | [facility] | [address] | [place] [address] | | | LABORATORY | | | [...] RLB ([address] [facility]) | | | [place] [address] | | | [place] [facility] [place] [address] | | + + + + + + + + | Performing | Address | City/State/Zipcode | Phone Number | | Organization | | | | + + + + + | [facility] | [address] | [place] [address] | | | LABORATORY | | | [...] | | | DEPARTMENT | | | IRISH | | | OF | | | [...] | + + + + + | [facility] DEPARTMENT | [address] | [place] [address] | | | PATHOLOGY | [address] [...] DEPT OF | [address] | [place], [place] | | | CARDIOLOGY | [address] | [address] | | + + + + + [...] DEPT OF | [address] | [place], [place] | | | CARDIOLOGY | [address] | [address] | | + + + + + [...] view image for the detailed interpretation from [employer] results. | CARDIOLOGY | + + + + + + + + | Performing | Address | City/State/Zipcode | Phone Number | | Organization | | | | + + + + + | [facility] | [address] | [place], [place] | | | CARDIOLOGY | [address] | [address] | | + + + + + documented in this encounter Visit Diagnoses + + | Diagnosis | + + | Chest pain - Primary Chest pain, unspecified | + + | Bradycardia Other specified cardiac dysrhythmias | + + | Pacemaker Cardiac pacemaker in situ | + + documented in this encounter
--- OUTSIDE RECORDS SUMMARY | ~2020-04-15 | XMS | Encounter Summary ---
Demographics + + + | Address | [address] | | | [place] [address] | + + + | Home Phone [...] Team Providers + +------+ + | Care Land Department Head Name | Role | Phone | [...] + | 09/01/ | Telephone | [facility] | [place], | Appointment | | 2016 | | CARDIOLOGY [address] | [address] | (Reschedule) | | | | [place], | [place], | | | | | [place] [address] | [place] [address] | | | | | [phone] | [phone] | | | | | | | [...] | | | | | | [place], | | | | | | [place] [address] | | | | | | [phone] | | | | | | | | +--------+ + + + + | 05/01/ | Procedure | Cardiology | | | | 2019 | visit | | | | +--------+ + + + + | 05/01/ | Office | Cardiology | [place], | | | 2019 | Visit | | PAR[address] | | | | | | [place], | | | | | | [place] [address] | | | | | | [phone] | | | | | | | | +--------+ + + + + | 05/21/ | Implant | Cardiology | Daljit Singletary, | Remote Device | | 2019 | Monitor | | [address] [facility] | Interrogation | | | | | [place], | (Primary Dx); | | | | | [place] [address] | Pacemaker; | | | | | [phone] | Sinoatrial node | | | | | | dysfunction (HCC) | | | | | | with symptomatic | | | | | | bradycardia | +--------+ + + + + documented as of this encounter Visit Diagnoses Not on filedocumented in this encounter"
--- OUTSIDE RECORDS SUMMARY | ~2020-04-15 | XMS | Encounter Summary ---
Demographics + + + | Address | [address] | | | [place] [address] | + + + | Home Phone [...] Providers + +------+ + | Care Second Language Tutor Name | Role | Phone [...] | 10/26/ | Refill | [facility] [place] | Kirk French | Medication Refill | | 2019 | | GASTROENTEROLOGY | MD Bre[address] | | | | | [address] [place] | [address] | | | | | [address] [place], [place] | [place] [address] | | | | | [address] | [phone] | | | | | [phone] | | | +--------+--------+ + + + [...] | | | | | | [place] [address] | | | | | | [phone] | | | | | | | | +--------+ + + + + | 05/01/ | Procedure | Cardiology | | | | 2019 | visit | | | | +--------+ + + + + | 05/01/ | Office | Cardiology | [place]via, | | | 2019 | Visit | | [address] | | | | | | [place], | | | | | | [place] [address] | | | | | | [phone] | | | | | | | | +--------+ + + + + | 05/21/ | Implant | Cardiology | Daljit Singletary, | Remote Device | 2019 | Monitor | | [address] [facility] | Interrogation | | | | | [place], | (Primary Dx); | | | | | [place] [address] | Pacemaker; | | | | | [phone] | Sinoatrial node | | | | | | dysfunction (HCC) | | | | | | with symptomatic | | | | | | bradycardia | +--------+ + + + + documented as of this encounter Visit Diagnoses Not on filedocumented in this encounter"
--- OUTSIDE RECORDS SUMMARY | ~2020-04-15 | XMS | Encounter Summary ---
Demographics + + + | Address | [address] | | | [place] [address] | + + + | Home Phone [...] Providers + +------+ + | Care Area Forester Name | Role | Phone | [...] | | | | [place] | [address] | | | | | [address] | | | | | | [phone] | | | +--------+ + + + [...] | | | | | | [place] [address] | | | | | | [phone] | | | | | | | [...] | | | | | | [place] [address] | | | | | | [phone] | | | | | | | | +--------+ + + + + | 05/21/ | Implant | Cardiology | Daljit Singletary, | Remote Device | 2019 | Monitor | | MD [address] [place] | Interrogation | | | | | [place], | (Primary Dx); | | | | | [place] [address] | Pacemaker; | | | | | [phone] | Sinoatrial node | | | | | | dysfunction (HCC) | | | | | | with symptomatic | | | | | | bradycardia | +--------+ + + + + documented as of this encounter Visit Diagnoses Not on filedocumented in this encounter"
--- OUTSIDE RECORDS SUMMARY | ~2020-04-15 | XMS | Encounter Summary ---
Demographics + + + | Address | [address] | | | [place] [address] | + + + | Home Phone [...] Providers + +------+ + | Care Physician Office Assistant Name | Role | Phone | [...] Show | | 2012 | | [facility] | DO [address] | | | | | [address] | [place] | | | | | [place] | [address] | | | | | [address] | | | | | | [phone] | | | +--------+ + + + [...] W | | | | | | [place], | | | | | | [place] [address] | | | | | | [phone] | | | | | | | | +--------+ + + + + | 05/01/ | Procedure | Cardiology | | | | 2019 | visit | | | | +--------+ + + + + | 05/01/ | Office | Cardiology | Silvia, | | | 2019 | Visit | | [address] | | | | | | [place], | | | | | | [place] [address] | | | | | | [phone] | | | | | | | | +--------+ + + + + | 05/21/ | Implant | Cardiology | Daljit Singletary, | Remote Device | 2019 | Monitor | | MD [address] | Interrogation | | | | | [place], | (Primary Dx); | | | | | [place] [address] | Pacemaker; | | | | | [phone] | Sinoatrial node | | | | | | dysfunction (HCC) | | | | | | with symptomatic | | | | | | bradycardia | +--------+ + + + + documented as of this encounter Visit Diagnoses Not on filedocumented in this encounter"
--- OUTSIDE RECORDS SUMMARY | ~2020-04-15 | XMS | Encounter Summary ---
Demographics + + + | Address | [address] | | | [place] [address] | + + + | Home Phone [...] Team Providers + +------+ + | Care Type Caster Name | Role | Phone | [...] + | 07/01/ | Telephone | [facility] | Daljit Singletary, | Other (EKG) | | 2017 | | CARDIOLOGY [address] | MD [address] | | | | | [place], | [place], | | | | | [place] [address] | [place] [address] | | | | | [phone] | [phone] | | | | | | | [...] | | | | | | [place] [address] | | | | | | [phone] | | | | | | | | +--------+ + + + + | 05/01/ | Procedure | Cardiology | | | | 2019 | visit | | | | +--------+ + + + + | 05/01/ | Office | Cardiology | Silvia, | | | 2019 | Visit | | PARISA Vernon [address] | | | | | | [place], | | | | | | [place] [address] | | | | | | [phone] | | | | | | | | +--------+ + + + + | 05/21/ | Implant | Cardiology | Daljit Singletary, | Remote Device | | 2019 | Monitor | | [address] [facility] | Interrogation | | | | | [place], | (Primary Dx); | | | | | [place] [address] | Pacemaker; | | | | | [phone] | Sinoatrial node | | | | | | dysfunction (HCC) | | | | | | with symptomatic | | | | | | bradycardia | +--------+ + + + + documented as of this encounter Visit Diagnoses Not on filedocumented in this encounter"
--- OUTSIDE RECORDS SUMMARY | ~2020-04-15 | XMS | Encounter Summary ---
Demographics + + + | Address | [address] | | | [place] [address] | + + + | Home Phone [...] Team Providers + +------+ + | Care Story Analyst Name | Role | Phone | + +------+ + | Kirk French MD | PCP | | + +------+ + Encounter Details +--------+ + + + + | Date | Type | Department | Care Team | Description | +--------+ + + + + | 07/21/ | Hospital | [facility] [place] [facility] | Daljit Singletary, | | | 2018 | Encounter | MED CTR NUCLEAR | MD [address] | | | | | MEDICINE [address] | [address] [place], | | | | | [place], | [place] [address] | | | | | [place] [address] | [phone] | | | | | [phone] | | | +--------+ + + + [...] + + +---------+ + + | [place]-3 Fatty | CAPS, one capsule by | [...] | | | | | | [place] [address] | | | | | | [phone] | | | | | | | [...] | | | | | | [place] [address] | | | | | | [phone] | | | | | | | | +--------+ + + + + | 05/21/ Implant | Cardiology | Daljit Singletary, | Remote Device | | 2019 | Monitor | | [address] [facility] | Interrogation | | | | | [place], | (Primary Dx); | | | | | [place] [address] | Pacemaker; | | | | | [phone] | Sinoatrial node | | | | [...] | | | | | | Starting [facility] 07/21/18 at 1224, For | | | | | | | 1 dose, Nuclear Medicine | | | | | | + +--------+ + +------+------+ +---+---+ | | | +---+---+ documented in this encounter"
--- OUTSIDE RECORDS SUMMARY | ~2020-04-15 | XMS | Encounter Summary ---
Demographics + + + | Address | [address] | | | [place] [address] | + + + | Home Phone [...] Team Providers + +------+ + | Care Sponge Hooker Name | Role | Phone | + +------+ + | Kirk French MD | PCP | | + +------+ + Encounter Details +--------+ + + + + | Date | Type | Department | Care Team | Description | +--------+ + + + + | 12/24/ | [facility] | [facility] | Emmanuel Daniel MD | Pain of upper | | 2018 | Encounter | MED CTR MP INTRA OP | [address], [place] | abdomen (Primary | | | | [address] | [address] [place], [place] | Dx); Functional | | | | [place], [place] | [address] | diarrhea; Weight | | | | [address] | | loss | | | | [phone] | | | +--------+ + + + [...] + + + +---------+ + + | [place]-3 Fatty | CAPS, one capsule by | [...] | | | | | | [place], | | | | | | [place] [address] | | | | | | [phone] | | | | | | | | +--------+ + + + + | 05/01/ | Procedure | Cardiology | | | | 2019 | visit | | | | +--------+ + + + + | 05/01/ | Office | Cardiology | [place]via, | | | 2019 | Visit | | [address]ISA [address] | | | | | | [place], | | | | | | [place] [address] | | | | | | [phone] | | | | | | | | +--------+ + + + + | 05/21/ | Implant | Cardiology | Daljit Singletary, | Remote Device | | 2019 | Monitor | | MD [address] [facility] | Interrogation | | | | | [place], | (Primary Dx); | | | | | [place] [address] | Pacemaker; | | | | | [phone] | Sinoatrial node | | | | [...] + | Performed at: 01 - [facility] [place] [address], | REFERENCE LAB | | [place], [place] [id number] Proofing Machine Operator: William Andrew MD, Phone: | ARSH - KINA | | [phone] | | + + + + + + + + | Performing | Address | City/State/Zipcode | Phone Number | | Organization | | | | + + + + + | REFERENCE LAB | [address] | [place], [place] | [phone] | | AR[facility] - KINA | [facility] | [address] | | + + + + + [...] + | [facility] | [address] | [place] | [phone] | | [facility] | | [address] | | | - LABORATORY | | [...] | | | Aeromonas, Plesiomonas, | | [facility] | | | | E. coli O157 or | | MEDICAL | | | | Yersinia isolated. | | CENTER - | | | | | | LABORATORY | | + + + + + + | Culture | 4+ Usual FloraComment: | | [facility] | | | | Consistent with usual | | [facility] | | | | enteric michelle. [...] [address] | [place] | [phone] | | [facility] | | [address] | | | - LABORATORY | | [...] [address] | [place] | [phone] | | [facility] | | [address] | | | - LABORATORY | | [...] + | Performed at: 01 - [facility] [place] [address], | REFERENCE LAB | | [place], [place] [id number] Proofing Machine Operator: William Andrew MD, Phone: | [facility] | | [phone] | | + + + + + + + + | Performing | Address | City/State/Zipcode | Phone Number | | Organization | | | | + + + + + | REFERENCE LAB | [address] | [place], [place] | [phone] | | [facility] | [facility] | [address] | | + + + + + Lactoferrin, Fecal, Qual (12/24/2017 1:34 PM PST) + + + + + + | Component | Value | Ref Range | Performed | Pathologist | | | | | At | Signature | + + + + + + | Lactoferrin | Negative | Negative | [facility] | | | , Qual | | | [facility] | | | | | | MEDICAL [...] [address] | [place] | [phone] | | [facility] | | [address] | | | - LABORATORY | | [...] + | [facility] | [address] | [place] | [phone] | | [facility] | | [address] | | | - LABORATORY | | [...] [address] | [place] | [phone] | | [facility] | | [address] | | | - LABORATORY | | [...] ST. | [address] | [place], [place] | [phone] | | [facility] | | [address] | | | - LABORATORY | | [...] + | [facility] | [address] | [place], [place] | [phone] | | [facility] | | [address] | | | - LABORATORY | | | | + + + + + EGD (12/24/2017 1:19 PM PST) + + | Specimen | + + | | + + + + -+ | Narrative | Performed At | + + -+ | | [facility] | | GastroenterologyPatient Name: Moe SanchezProcedpasha Date: 12/24/2017 | [facility] | | 1:19 PMMRN: [id number] #: [id number] of : | | | 9Admit Type: AmbulatoryAge: 57Room: [facility] 01Gender: MaleNote | | | Status: FinalizedAttending MD: Emmanuel Daniel , MDProcedure: | | | Upper GI endoscopyIndications: Diarrhea, Weight | | | lossProviders: Emmanuel Daniel MD, Maria Isabel Morris RN, | | | Kim Hicks, Microfiche Duplicator, [place] | | | Sapna Barakat MD (Anesthesia [...] the anesthesiologist and | | | the data reduction technician in the endoscopy suite. Mental Status [...] PMScope Out: 1:31:13 PM | | | [facility], [address] [place] [address] | | | [place] [address] | | | - Discharge patient to [...] |Scope Out: 1:31:13 PM | | | [facility], [address] [place] [address] | | | [address] | | + + -+ + +---------+ [...] 12/24/2017 | [facility] | | 1:17 PMMRN: [id number] #: [id number] of : | | | 9Admit Type: AmbulatoryAge: 57Room: [facility] 01Gender: MaleNote | | | Status: FinalizedAttending MD: Emmanuel Daniel MDProcedure: | | | ColonoscopyIndications: Clinically significant diarrhea of | | | unexplained originProviders: Emmanuel Daniel MD, Maria Isabel | | | Arturo RN, Kim Hicks, Microfiche Duplicator, | | | Jarett Barakat MD (Anesthesia [...] | | | the anesthesiologist and the data reduction technician in the endoscopy suite. | | [...] In: 1:32:55 PMScope Out: 1:48:57 PM [facility] | | | [facility], [address] [place] [address] | | | [phone] | | | - Await pathology results. [...] |Scope Out: 1:48:57 PM | | | [facility], [address] [place] [address] | | | [address] | | + + -+ + +---------+ [...] | colonic mucosa with focal adenomatous change. CLR:[facility]:C2NR | | | GROSS DESCRIPTION: Received in four parts. A. Received in | | | formalin labeled "Moe [place], A." and labeled "duodenal bx" on | | | the requisition are six pink-lin tissue fragments measuring from | | | 0.3-0.8 cm submitted, all in (A1). B. Received in formalin labeled | | | "Moe [place], C." and labeled "B, left colon bx" on the | | | requisition are five pink-lin tissue fragments measuring from 0.2-09.9 | | | cm, submitted, all in (B1). C. Received in formalin labeled | | | "Moe [place], D." and labeled "C, bx TI" on [...] | | cm, submitted, all in (D1). ka:CLR:[facility] ADDITIONAL NOTES: | | | Immunohistochemical studies were performed on this case with the | | | appropriate positive controls that react as expected. This test was | | | developed and its performance characteristics determined by [facility] | | | [employer]. It has not been cleared or approved by the U.S. Food | | | and Drug Administration. The FDA has determined that such clearance | | | or approval is not necessary. This test is used for clinical | | | purposes. It should not be regarded as investigational or for | | | research. [facility] is certified under the Clinical | | | Laboratory Improvement Amendments of 1988 (CLIA) as qualified to | | | perform high complexity clinical laboratory testing. This assay | | | has not been validated for specimens that have been decalcified. | | | PERFORMING LABORATORY: Tissue processing and slide preparation were | | | performed by [facility], [address], [facility] | | | [place] [address] (Herbarium Curator: Evan Frausto M.D. [place]#: | | | [id number]). Professional interpretation was performed by [facility] | | | [employer], [address], [place] [address] | | | (Herbarium Curator: Evan Frausto M.D.; [place]#: [id number]). | | | Diagnostician: Rafael Bales MD Pathologist Electronically | | | Signed 12/28/2017 | | + + + + +---------+ + + | Performing | Address | City/State/[facility] Cent[facility]ode | Phone Number | | [...]
--- OUTSIDE RECORDS SUMMARY | ~2020-04-15 | XMS | Encounter Summary ---
Demographics + + + | Address | [address] | | | [place] [address] | + + + | Home Phone [...] Providers + +------+ + | Care Traffic Police Officer Name | Role | Phone | + +------+ + | Michael Amanda DO | PCP | | + +------+ + Encounter Details +--------+ + + + + | Date | Type | Department | Care Team | Description | +--------+ + + + + | 05/11/ | Hospital | [facility] | Conversion | Lumbago; | | 2013 | Encounter | MEDICAL CENTER | Transaction, | Postlaminectomy | | | | CLINICAL DECISION | Provider Unknown | syndrome, cervical | | | | [address] | | region; Cervicalgia | | | | [place], [place] | (Fax) | | | | | [address] | Cesar, | | | | | [phone] | MD Gamaliel | | +--------+ + [...] + + + +---------+ + + | [place]-3 Fatty | CAPS, one capsule by | [...] Date of Service: 05/11/14 150 Status: Signed Clinical Statistics Manager: Meliza Macario RN (Registered Nurse) Pt [...] Date of Service: 05/11/14 142 Status: Signed Clinical Statistics Manager: Heike Mckeon RN (Registered Nurse) Called [...] | | | | | | [place] [address] | | | | | | [phone] | | | | | | | | +--------+ + + + + | 05/01/ | Procedure | Cardiology | | | | 2019 | visit | | | | +--------+ + + + + | 05/01/ | Office | Cardiology | [place], | | | 2019 | Visit | | PARISA [place] W | | | | | | [place], | | | | | | [place] [address] | | | | | | [phone] | | | | | | | | +--------+ + + + + | 05/21/ | Implant | Cardiology | Daljit Singletary, | Remote Device | | 2019 | Monitor | | [address] [facility] | Interrogation | | | | | [address] [place], | (Primary Dx); | | | | | [place] [address] | Pacemaker; | | | | | [phone] | Sinoatrial node | | | | [...] | | | intrathecal use. See the export sales manager examination for details of the | | | injection. Bone algorithm noncontrast technique with reformatted | | | sagittal and coronal images. Prior study for review : CT discogram | | | from 2004 was used to orient this examination given the transitional | | | anatomy of the lumbosacral junction FINDINGS: Installation Technician is notable | | | for a [...] for intrathecal use. See | | the export sales manager examination for details of the injection. Bone algorithm noncontrast | | technique with reformatted sagittal and coronal images. Prior study for review : CT | | discogram from 2004 was used to orient this examination given the transitional anatomy | | of the lumbosacral junction FINDINGS: Installation Technician is notable for a pacing system. Anterior [...] junction. Electronically | | signed by Cirilo Matrínez MD on 05/11/2014 6:31 PM | |There [...]
--- OUTSIDE RECORDS SUMMARY | ~2020-04-15 | XMS | Encounter Summary ---
Demographics + + + | Address | [address] | | | [place] [address] | + + + | Home Phone [...] Providers + +------+ + | Care Screen Handler Name | Role | Phone | [...] 2012 | | CARDIOLOGY [address] | HOSPICE PLAN ADMINISTRATOR [address] | | | | | [place], | [place], [place] | | | | | [place] [address] | [address] | | | | | [phone] | | | +--------+ + + + [...] | | | | | | [place] [address] | | | | | | [phone] | | | | | | | | +--------+ + + + + | 05/01/ | Procedure | Cardiology | | | | 2019 | visit | | | | +--------+ + + + + | 05/01/ | Office | Cardiology | [place], | | | 2019 | Visit | | [address] | | | | | | [place], | | | | | | [place] [address] | | | | | | [phone] | | | | | | | | +--------+ + + + + | 05/21/ | Implant | Cardiology | Daljit Singletary, | Remote Device | 2019 | Monitor | | [address] [place] | Interrogation | | | | | [place], | (Primary Dx); | | | | | [place] [address] | Pacemaker; | | | | | [phone] | Sinoatrial node | | | | [...] | [facility] | | [address], [facility] | | | - LABORATORY [...] | | | LAB | | | [place]ian, | | | | | | External [...]
--- OUTSIDE RECORDS SUMMARY | ~2020-04-15 | XMS | Encounter Summary ---
Demographics + + + | Address | [address] | | | [place] [address] | + + + | Home Phone [...] Providers + +------+ + | Care Exchange Trouble Shooter Name | Role | Phone | [...] | Aneurysmal | [place], | [address] | | | | | dilatation | PARISA Solis | [place], | | | | | ([facility]LY [facility] | [address] | [place] | | | | | Procedures | [address] | [address] | | | | | ECHO | [place], | Phone: | | | | | Complete | [place] | [phone] | | | | | | [address] | Fax: | | | | | | Phone: | [phone] | | | | | | [phone] | | | | | | | Fax: | | | | | | | [phone] | | +--------+--------+ + + + + [...] | | | | | Aneurysmal | [place], | [address] | | | | | dilatation | PARISA Solis | [place], | | | | | ([facility]LY [facility]) | [address] | [place] | | | | | Procedures | [address] | [address] | | | | | ECHO | [place], | Phone: | | | | | Complete | [place] | [phone] | | | | | | [address] | Fax: | | | | | | Phone: | [phone] | | | | | | [phone] | | | | | | | Fax: | | | | | | | [phone] | | +--------+--------+ + + + + Encounter Details +--------+ + + + + | Date | Type | Department | Care Team | Description | +--------+ + + + + | 11/16/ | Hospital | [facility] | [place], | Aneurysmal | | 2017 | Encounter | MED CTR ECHO [address] | Janeen, PRE PRESS MANAGER [address] | dilatation (HCC) | | | | [address] [place] | [address] [place], | | | | | [place], [place] [address] | [place] [address] | | | | | [phone] | [phone] | | | | | | | [...] + + + +---------+ + + | [place]-3 Fatty | CAPS, one capsule by [...] | | | | | | [place] [address] | | | | | | [phone] | | | | | | | [...] | | | | | | [place] [address] | | | | | | [phone] | | | | | | | | +--------+ + + + + | 05/21/ | Implant | Cardiology | Sydni Singletary, | Remote Device | | 2019 | Monitor | | MD [place] | Interrogation | | | | | [place], | (Primary Dx); | | | | | [place] [address] | Pacemaker; | | | | | [phone] | Sinoatrial node | | | | [...] Room Number SARAH Patient | | | [id number] Date of Study 11/16/2017 Number | | | Visit Number [id number] | | | Referring Physician GURJIT TROY Number | | | NORMA SOLIS Date | | | of 1960 Auditing Clerk ROMAINE | | | MARISSA TIPTON Age 57 year(s) Interpreting | | | GURJIT TROY | | | Painter Mirror SYDNI SINGLETARY, | | | | | | Gender Male Nurse | | | Stress Meter Repair Shop Supervisor Procedure Type of | | | [...] | | | EF | | | Fqtohsmfw92% Left Ventricle Diastolic Dimension: 5.12 cm | [...] Volume: 46.33 ml | | | EF Vlazgyesl30% | | | | | | Left [...] BARRY Room Number SARAH | | Patient [id number] Date of Study 11/16/2017 Number Visit Number | | [id number] Referring Physician GURJIT TROY | | Number RHANGELIA SOLIS Date of | | 1960 Auditing Clerk ROMAINE TIPTON PARESH Age 57 year(s) | | Interpreting GURJIT TROY Painter Mirror | | SYDNI SINGLETARY MD | | [...] LA Volume: 46.33 ml | | EF Clkslorzk79% Left Ventricle Diastolic Dimension: 5.12 cm Systolic [...] LA Volume: 46.33 ml | | EF Sllgnwcgv40% | | | | Left Ventricle | [...]
--- OUTSIDE RECORDS SUMMARY | ~2020-04-15 | XMS | Encounter Summary ---
Demographics + + + | Address | [address] | | | [place] [address] | + + + | Home Phone [...] Providers + +------+ + | Care Claim Representative Name | Role | Phone | + +------+ + PCP | Unavailable | + +------+ + Encounter Details +--------+ + + + + | Date | Type | Department | Care Team | Description | +--------+ + + + + | 01/15/ | [facility] | [facility] | Emmanuel Daniel MD | | | 1994 | Encounter | MED CTR GENERIC OP | [address] | | | | | CONV DEPT [address] | [address] [place] | | | | | [place], | [address] | | | | | [place] [address] | | | | | | [phone] | | | +--------+ + + + [...] | | | | | | [place], | | | | | | [place] [address] | | | | | | [phone] | | | | | | | | +--------+ + + + + | 05/01/ | Procedure | Cardiology | | | | 2019 | visit | | | | +--------+ + + + + | 05/01/ | Office | Cardiology | Silvia, | | | 2019 | Visit | | PARISA [address] | | | | | | [place], | | | | | | [place] [address] | | | | | | [phone] | | | | | | | | +--------+ + + + + | 05/21/ | Implant | Cardiology | Daljit Singletary, | Remote Device | 2019 | Monitor | | [address] [place] | Interrogation | | | | | [place], | (Primary Dx); | | | | | [place] [address] | Pacemaker; | | | | | [phone] | Sinoatrial node | | | | | | dysfunction (HCC) | | | | | | with symptomatic | | | | | | bradycardia | +--------+ + + + + documented as of this encounter Visit Diagnoses Not on filedocumented in this encounter"
--- OUTSIDE RECORDS SUMMARY | ~2020-04-15 | XMS | Encounter Summary ---
Demographics + + + | Address | [address] | | | [place] [address] | + + + | Home Phone [...] + +------+ + | Care Entry Level Sales Associate Name | Role | Phone [...] 2019 | | GASTROENTEROLOGY | [address], [place] | | | | | [address] [place] | [address] [place], [place] | | | | | [address] [place], [place] | [address] | | | | | [address] | | | | | | [phone] | | | +--------+ + + + [...] | | | | | | [place] [address] | | | | | | [phone] | | | | | | | | +--------+ + + + + | 05/01/ | Procedure | Cardiology | | | | 2019 | visit | | | | +--------+ + + + + | 05/01/ | Office | Cardiology | Silvia, | | | 2019 | Visit | | PARISA [address] | | | | | | [place], | | | | | | [place] [address] | | | | | | [phone] | | | | | | | | +--------+ + + + + | 05/21/ | Implant | Cardiology | Daljit Singletary, | Remote Device | | 2019 | Monitor | | [address] [facility] | Interrogation | | | | | [address] [place], | (Primary Dx); | | | | | [place] [address] | Pacemaker; | | | | | [phone] | Sinoatrial node | | | | | | dysfunction (HCC) | | | | | | with symptomatic | | | | | | bradycardia | +--------+ + + + + documented as of this encounter Visit Diagnoses Not on filedocumented in this encounter"
--- OUTSIDE RECORDS SUMMARY | ~2020-04-15 | XMS | Encounter Summary ---
Demographics + + + | Address | [address] | | | [place] [address] | + + + | Home Phone [...] | Merged With [facility] | | | [...] Providers + +------+ + | Care Search Director Name | Role | Phone | [...] + | 06/27/ | Telephone | [facility] | Michael Amanda, | ED Follow-up (s/p | | 2014 | | MEDICINE [facility] | DO [address] | [facility]) | | | | [address] | [place] | | | | | [place] | [address] | | | | | [address] | | | | | | [phone] | | | +--------+ + + + [...] W | | | | | | [place], | | | | | | [place] [address] | | | | | | [phone] | | | | | | | | +--------+ + + + + | 05/01/ | Procedure | Cardiology | | | | 2019 | visit | | | | +--------+ + + + + | 05/01/ | Office | Cardiology | Silvia, | | | 2019 | Visit | | PARISA Vernon [address] | | | | | | [place], | | | | | | [place] [address] | | | | | | [phone] | | | | | | | | +--------+ + + + + | 05/21/ | Implant | Cardiology | Daljit Singletary, | Remote Device | | 2019 | Monitor | | [address] [facility] | Interrogation | | | | | [place], | (Primary Dx); | | | | | [place] [address] | Pacemaker; | | | | | [phone] | Sinoatrial node | | | | | | dysfunction (HCC) | | | | | | with symptomatic | | | | | | bradycardia | +--------+ + + + + documented as of this encounter Visit Diagnoses Not on filedocumented in this encounter"
--- OUTSIDE RECORDS SUMMARY | ~2020-04-15 | XMS | Encounter Summary ---
Demographics + + + | Address | [address] | | | [place] [address] | + + + | Home Phone [...] + +------+ + | Care Elementary School Tutor Name | Role | Phone | [...] 2012 | | Conversion Location | [address] | | | | | TRACIE T[facility] | [address] [place], | | | | | [place], [place] | [place] [address] | | | | | [address] | [phone] | | | | | [phone] | | | +--------+ + + + [...] | | | | | | [place] [address] | | | | | | [phone] | | | | | | | | +--------+ + + + + | 05/01/ | Procedure | Cardiology | | | | 2019 | visit | | | | +--------+ + + + + | 05/01/ | Office | Cardiology | Silvia, | | | 2019 | Visit | | PARISA [address] W | | | | | | [place], | | | | | | [place] [address] | | | | | | [phone] | | | | | | | | +--------+ + + + + | 05/21/ | Implant | Cardiology | Daljit Singletary, | Remote Device | 2019 | Monitor | | [address] [place] | Interrogation | | | | | [place], | (Primary Dx); | | | | | [place] [address] | Pacemaker; | | | | | [phone] | Sinoatrial node | | | | | | dysfunction (HCC) | | | | | | with symptomatic | | | | | | bradycardia | +--------+ + + + + documented as of this encounter Visit Diagnoses Not on filedocumented in this encounter"
--- OUTSIDE RECORDS SUMMARY | ~2020-04-15 | XMS | Encounter Summary ---
Demographics + + + | Address | [address] | | | [place] [address] | + + + | Home Phone [...] Team Providers + +------+ + | Care Infectious Disease Technician Name | Role | Phone | + +------+ + PCP | Unavailable | + +------+ + Encounter Details +--------+ + + + + | Date | Type | Department | Care Team | Description | +--------+ + + + + | 02/07/ | [facility] | [facility] | Unknown, | | | 1995 | Encounter | MED CTR XRAY [address] | MD Stefany . | | | | | [place] | | | | | | [place] [address] | (Fax) | | | | | [phone] | | | +--------+ + + + [...] | | | | | | [place] [address] | | | | | | [phone] | | | | | | | | +--------+ + + + + | 05/01/ | Procedure | Cardiology | | | | 2019 | visit | | | | +--------+ + + + + | 05/01/ | Office | Cardiology | Silvia, | | | 2019 | Visit | | PARISA [place] [address] | | | | | | [place], | | | | | | [place] [address] | | | | | | [phone] | | | | | | | | +--------+ + + + + | 05/21/ | Implant | Cardiology | Daljit Singletary, | Remote Device | | 2019 | Monitor | | [address] | Interrogation | | | | | [place], | (Primary Dx); | | | | | [place] [address] | Pacemaker; | | | | | [phone] | Sinoatrial node | | | | | | dysfunction (HCC) | | | | | | with symptomatic | | | | | | bradycardia | +--------+ + + + + documented as of this encounter Visit Diagnoses Not on filedocumented in this encounter"
--- OUTSIDE RECORDS SUMMARY | ~2020-04-15 | XMS | Encounter Summary ---
Demographics + + + | Address | [address] | | | [place] [address] | + + + | Home Phone [...] Team Providers + +------+ + | Care Recovery Room Rn Name | Role | Phone | [...] Refill | | 2013 | | [facility] | DO [address] | | | | | [address] | [place] | | | | | [place] | [address] | | | | | [address] | | | | | | [phone] | | | +--------+--------+ + + + [...] | | | | | | [place], | | | | | | [place] [address] | | | | | | [phone] | | | | | | | | +--------+ + + + + | 05/01/ | Procedure | Cardiology | | | | 2019 | visit | | | | +--------+ + + + + | 05/01/ | Office | Cardiology | Silvia, | | | 2019 | Visit | | PARISA [address] | | | | | | [place], | | | | | | [place] [address] | | | | | | [phone] | | | | | | | | +--------+ + + + + | 05/21/ | Implant | Cardiology | Daljit Singletary, | Remote Device | | 2019 | Monitor | | [address] [facility] | Interrogation | | | | | [address] [place], | (Primary Dx); | | | | | [place] [address] | Pacemaker; | | | | | [phone] | Sinoatrial node | | | | | | dysfunction (HCC) | | | | | | with symptomatic | | | | | | bradycardia | +--------+ + + + + documented as of this encounter Visit Diagnoses Not on filedocumented in this encounter"
--- OUTSIDE RECORDS SUMMARY | ~2020-04-15 | XMS | Encounter Summary ---
Demographics + + + | Address | [address] | | | [place] [address] | + + + | Home Phone [...] Providers + +------+ + | Care Manager Portable Name | Role | Phone | + [...] CARDIOLOGY [address] | MD [address] | Dx); SINUS | | | | [place], | [place], | [place] | | | | [place] [address] | [place] [address] | | | | | [phone] | [phone] | | | | | | | [...] | | | | | | [place] [address] | | | | | | [phone] | | | | | | | | +--------+ + + + + | 05/01/ | Procedure | Cardiology | | | | 2019 | visit | | | | +--------+ + + + + | 05/01/ | Office | Cardiology | Silvia, | | | 2019 | Visit | | PARISA [address] | | | | | | [place], | | | | | | [place] [address] | | | | | | [phone] | | | | | | | | +--------+ + + + + | 05/21/ | Implant | Cardiology | Daljit Singletary, | Remote Device | | 2019 | Monitor | | [address] [place] | Interrogation | | | | | [place], | (Primary Dx); | | | | | [place] [address] | Pacemaker; | | | | | [phone] | Sinoatrial node | | | | [...]
--- OUTSIDE RECORDS SUMMARY | ~2020-04-15 | XMS | Encounter Summary ---
Demographics + + + | Address | [address] | | | [place] [address] | + + + | Home Phone [...] Providers + +------+ + | Care Aerial Advertiser Name | Role | Phone | + [...] W | | | | | [place], | [place], | | | | | [place] [address] | [place] [address] | | | | | [phone] | [phone] | | | | | | | [...] W | | | | | | [place], | | | | | | [place] [address] | | | | | | [phone] | | | | | | | | +--------+ + + + + | 05/01/ | Procedure | Cardiology | | | | 2019 | visit | | | | +--------+ + + + + | 05/01/ | Office | Cardiology | Silvia, | | | 2019 | Visit | | [address] | | | | | | [place], | | | | | | [place] [address] | | | | | | [phone] | | | | | | | | +--------+ + + + + | 05/21/ | Implant | Cardiology | Daljit Singletary, | Remote Device | | 2019 | Monitor | | [address] | Interrogation | | | | | [place] [place]oper, | (Primary Dx); | | | | | [place] [id number] | Pacemaker; | | | | | [phone] | Sinoatrial node | | | | | | dysfunction (HCC) | | | | | | with symptomatic | | | | | | bradycardia | +--------+ + + + + documented as of this encounter Visit Diagnoses Not on filedocumented in this encounter"
--- OUTSIDE RECORDS SUMMARY | ~2020-04-15 | XMS | Encounter Summary ---
Demographics + + + | Address | [address] | | | [place] [address] | + + + | Home Phone [...] Providers + +------+ + | Care Carbon Furnace Operator Helper Name | Role | [...] + + | 08/30/ | Refill | [facility] | Kirk French | Medication Refill | | 2019 | | [facility] | MD Brea [address] | | | | | [facility] [address] | | | | | [address] | [place] [address] | | | | | [place], [place] | [phone] | | | | | [address] | | | | | | [phone] | | | +--------+--------+ + + + [...] | | | | | | [place] [address] | | | | | | [phone] | | | | | | | | +--------+ + + + + | 05/01/ | Procedure | Cardiology | | | | 2019 | visit | | | | +--------+ + + + + | 05/01/ | Office | Cardiology | [place]via, | | | 2019 | Visit | | [address] | | | | | | [place], | | | | | | [place] [address] | | | | | | [phone] | | | | | | | | +--------+ + + + + | 05/21/ | Implant | Cardiology | Daljit Singletary, | Remote Device | | 2019 | Monitor | | [facility] | Interrogation | | | | | [place], | (Primary Dx); | | | | | [place] [address] | Pacemaker; | | | | | [phone] | Sinoatrial node | | | | | | dysfunction (HCC) | | | | | | with symptomatic | | | | | | bradycardia | +--------+ + + + + documented as of this encounter Visit Diagnoses Not on filedocumented in this encounter"
--- OUTSIDE RECORDS SUMMARY | ~2020-04-15 | XMS | Encounter Summary ---
Demographics + + + | Address | [address] | | | [place] [address] | + + + | Home Phone [...] Team Providers + +------+ + | Care Matching Machine Operator Name | Role | Phone [...] | 03/07/ | Telephone | [facility] [place] | Daljit Singletary, | Results ([facility]) | | 2020 | | CARDIOLOGY [address] | MD [address] [place] | | | | | [place], | [place], | | | | | [place] [address] | [place] [address] | | | | | [phone] | [phone] | | | | | | | [...] | | | | | | [place] [address] | | | | | | [phone] | | | | | | | | +--------+ + + + + | 05/01/ | Procedure | Cardiology | | | | 2019 | visit | | | | +--------+ + + + + | 05/01/ | Office | Cardiology | [place], | | | 2019 | Visit | | [address] | | | | | | [place], | | | | | | [place] [address] | | | | | | [phone] | | | | | | | | +--------+ + + + + | 05/21/ | Implant | Cardiology | Daljit Singletary, | Remote Device | 2019 | Monitor | | [address] | Interrogation | | | | | [place], | (Primary Dx); | | | | | [place] [address] | Pacemaker; | | | | | [phone] | Sinoatrial node | | | | | | dysfunction (HCC) | | | | | | with symptomatic | | | | | | bradycardia | +--------+ + + + + documented as of this encounter Visit Diagnoses Not on filedocumented in this encounter"
--- OUTSIDE RECORDS SUMMARY | ~2020-04-15 | XMS | Encounter Summary ---
Demographics + + + | Address | [address] | | | [place] [address] | + + + | Home Phone [...] CARDIOLOGY [address] | MD [address] [place] | blood clots) | | | | [place], | [place], | | | | | [place] [address] | [place] [address] | | | | | [phone] | [phone] | | | | | | | [...] | | | | | | [place] [address] | | | | | | [phone] | | | | | | | | +--------+ + + + + | 05/01/ | Procedure | Cardiology | | | | 2019 | visit | | | | +--------+ + + + + | 05/01/ | Office | Cardiology | Silvia, | | | 2019 | Visit | | [address] | | | | | | [place], | | | | | | [place] [address] | | | | | | [phone] | | | | | | | | +--------+ + + + + | 05/21/ | Implant | Cardiology | Daljit Singletary, | Remote Device | | 2020 | Monitor | | [address] [facility] | Interrogation | | | | | [place], | (Primary Dx); | | | | | [place] [address] | Pacemaker; | | | | | [phone] | Sinoatrial node | | | | | | dysfunction (HCC) | | | | | | with symptomatic | | | | | | bradycardia | +--------+ + + + + documented as of this encounter Visit Diagnoses Not on filedocumented in this encounter"
--- OUTSIDE RECORDS SUMMARY | ~2020-04-15 | XMS | Encounter Summary ---
Demographics + + + | Address | [address] | | | [place] [address] | + + + | Home Phone [...] Providers + +------+ + | Care Electrical Research Engineer Name | Role | Phone [...] + | 01/25/ | Telephone | [facility] | Daljit Singletary, | Appointment | | 2017 | | CARDIOLOGY [address] | MD [address] [place] | | | | | [place], | [place], | | | | | [place] [address] | [place] [address] | | | | | [phone] | [phone] | | | | | | | [...] W | | | | | | [place], | | | | | | [place] [address] | | | | | | [phone] | | | | | | | | +--------+ + + + + | 05/01/ | Procedure | Cardiology | | | | 2019 | visit | | | | +--------+ + + + + | 05/01/ | Office | Cardiology | Silvia, | | | 2019 | Visit | | [address] | | | | | | [place], | | | | | | [place] [address] | | | | | | [phone] | | | | | | | | +--------+ + + + + | 05/21/ | Implant | Cardiology | Daljit Singletary, | Remote Device | | 2019 | Monitor | | [address] [facility] | Interrogation | | | | | [place], | (Primary Dx); | | | | | [place] [address] | Pacemaker; | | | | | [phone] | Sinoatrial node | | | | | | dysfunction (HCC) | | | | | | with symptomatic | | | | | | bradycardia | +--------+ + + + + documented as of this encounter Visit Diagnoses Not on filedocumented in this encounter"
--- OUTSIDE RECORDS SUMMARY | ~2020-04-15 | XMS | Encounter Summary ---
Demographics + + + | Address | [address] | | | [place] [address] | + + + | Home Phone [...] Providers + +------+ + | Care Labor Conciliator Name | Role | Phone | [...] aortic aneurysm | | | | [place], | [place], | ([facility]) (Primary Dx); | | | | [place] [address] | [place] [address] | Coronary artery | | | | [phone] | [phone] | disease involving | | | | | | che[place]is coronary | | | | | | artery of [place]is | | | | | | heart [...] of non-critical coronary artery d isease involving [place] coronary artery of [place] heart without angina pectoris, essential h ypertension, [...] episode of chest pain while nelly ng [facility], so he took some sublingual nitroglycerin and [...] Preventative health care Coronary artery disease involving [place] coronary artery of [place] heart without angina pectoris Cannabis abuse, daily [...] 3rd dose, call 911 100 tablet 3 [place]-3 Fatty Acids (SALMON OIL-1000 PO) CAPS, one [...] 129* 05/12/2016 I reviewed records from [facility] for office visit on 06/2016 [facility] ch is summarized in the HPI. [...] pressure. 2. Non-critical Coronary artery disease involving [place] coronary artery of [place] heart [facility] angina pectoris: A. [...] go back in 3 days to [place] for an attempt of ablation under general [...] this chart may have been created with deviantART voice recognition software. Occasi onal wrong-word or [...] | | | | | | [place] [address] | | | | | | [phone] | | | | | | | | +--------+ + + + + | 05/01/ | Procedure | Cardiology | | | 2019 | visit | | | | +--------+ + + + + | 05/01/ | Office | Cardiology | [place]via, | | | 2019 | Visit | | PARISA [address] | | | | | | [place], | | | | | | [place] [address] | | | | | | [phone] | | | | | | | | +--------+ + + + + | 05/21/ | Implant | Cardiology | Daljit Singletary, | Remote Device | | 2019 | Monitor | | [address] [place] | Interrogation | | | | | [place], | (Primary Dx); | | | | | [place] [address] | Pacemaker; | | | | | [phone] | Sinoatrial node | | | | [...] + + | Coronary artery disease involving chehalis coronary artery of chehalis heart without | | angina pectoris | + + | Essential hypertension with goal blood pressure less than 130/80 | + + | Hyperlipidemia, mixed Mixed hyperlipidemia | + + documented in this encounter
--- OUTSIDE RECORDS SUMMARY | ~2020-04-15 | XMS | Encounter Summary ---
Demographics + + + | Address | [address] | | | [place] [address] | + + + | Home Phone [...] Providers + +------+ + | Care Cook Pickled Meat Name | Role | Phone | [...] | | [address] | [place] [address] | | | | | [place] | [phone] | | | | | [address] | | | | | | [phone] | | | +--------+ + + + [...] | | | | | | [place], | | | | | | [place] [address] | | | | | | [phone] | | | | | | | | +--------+ + + + + | 05/01/ | Procedure | Cardiology | | | | 2019 | visit | | | | +--------+ + + + + | 05/01/ | Office | Cardiology | Silvia, | | | 2019 | Visit | | PRAISA [address] | | | | | | [place], | | | | | | [place] [address] | | | | | | [phone] | | | | | | | | +--------+ + + + + | 05/21/ | Implant | Cardiology | Daljit Singletary, | Remote Device | 2019 | Monitor | | MD [facility] [place] | Interrogation | | | | | [place], | (Primary Dx); | | | | | [place] [address] | Pacemaker; | | | | | [phone] | Sinoatrial node | | | | | | dysfunction (HCC) | | | | | | with symptomatic | | | | | | bradycardia | +--------+ + + + + documented as of this encounter Visit Diagnoses Not on filedocumented in this encounter"
--- OUTSIDE RECORDS SUMMARY | ~2020-04-15 | XMS | Encounter Summary ---
Demographics + + + | Address | [address] | | | [place] [address] | + + + | Home Phone [...] Team Providers + +------+ + | Care Inpatient Auditor Name | Role | Phone | [...] + + | 04/24/ | Office | [facility] | Silvia, | Symptomatic PVCs | | 2012 | Visit | CARDIOLOGY [address] | [address] | (Primary Dx); CAD; | | | | [place], | [place], | Hyperlipidemia; | | | | [place] [address] | [place] [address] | PACEMAKER, PERMANENT | | | | [phone] | [phone] | - [employer] | | | | [...] tablet by mouth Daily. 30 tablet 6 [place]-3 Fatty Acids (SALMON OIL-1000 PO) CAPS, one [...] Reviewed records from PCP and notes from [facility]. Assessment: 1. Symptomatic PVCs [...] to go back in 3 days to [place] for an attempt of ablation under general [...] He is upgraded to class I of [place] [employer] functional class. There are no [...] made to ensure accuracy; however, inadvertent computerized bridge welder errors may be pre sent. documented in this encounter Plan of Treatment +--------+ + + + + | Date | Type | Specialty | Care Team | Description | +--------+ + + + + | 05/01/ | Appointment | Radiology | Silvia, | | | 2019 | | | [address] | | | | | | [place], | | | | | | [place] [address] | | | | | | [phone] | | | | | | | | +--------+ + + + + | 05/01/ | Procedure | Cardiology | | | | 2019 | visit | | | | +--------+ + + + + | 05/01/ | Office | Cardiology | Silvia, | | | 2019 | Visit | | [address] | | | | | | [place], | | | | | | [place] [address] | | | | | | [phone] | | | | | | | | +--------+ + + + + | 05/21/ | Implant | Cardiology | Daljit Singletary, | Remote Device | | 2019 | Monitor | | [facility] | Interrogation | | | | | [place], | (Primary Dx); | | | | | [place] [address] | Pacemaker; | | | | | [phone] | Sinoatrial node | | | | [...] Coronary atherosclerosis of unspecified type of vessel, [place] or graft | + + | Hyperlipidemia Other and unspecified hyperlipidemia | + + | PACEMAKER, PERMANENT - [employer] 06/14/09GRANT Cardiac pacemaker in situ | + + documented in this encounter
--- OUTSIDE RECORDS SUMMARY | ~2020-04-15 | XMS | Encounter Summary ---
Demographics + + + | Address | [address] | | | [place] [address] | + + + | Home Phone [...] Team Providers + +------+ + | Care Apns Name | Role | Phone | + [...] Results | | 2013 | | [facility] [place] | DO [address] | | | | | [address] | [place] | | | | | [place] | [address] | | | | | [address] | | | | | | [phone] | | | +--------+ + + + [...] W | | | | | | [place], | | | | | | [place] [address] | | | | | | [phone] | | | | | | | | +--------+ + + + + | 05/01/ | Procedure | Cardiology | | | | 2019 | visit | | | | +--------+ + + + + | 05/01/ | Office | Cardiology | Silvia, | | | 2019 | Visit | | PARISA Vernon W | | | | | | [place], | | | | | | [place] [address] | | | | | | [phone] | | | | | | | | +--------+ + + + + | 05/21/ | Implant | Cardiology | Daljit Singletary, | Remote Device | 2019 | Monitor | | MD [address] | Interrogation | | | | | [place], | (Primary Dx); | | | | | [place] [address] | Pacemaker; | | | | | [phone] | Sinoatrial node | | | | | | dysfunction (HCC) | | | | | | with symptomatic | | | | | | bradycardia | +--------+ + + + + documented as of this encounter Visit Diagnoses Not on filedocumented in this encounter"
--- OUTSIDE RECORDS SUMMARY | ~2020-04-15 | XMS | Encounter Summary ---
Demographics + + + | Address | [address] | | | [place] [address] | + + + | Home Phone [...] Providers + +------+ + | Care Foil Operator Name | Role | Phone | [...] | | CARDIOLOGY [address] | Janeen SR. CONSULTANT [address] | | | | | [place], | [place], | | | | | [place] [address] | [place] [address] | | | | | [phone] | [phone] | | | | | | | [...] W | | | | | | [place], | | | | | | [place] [address] | | | | | | [phone] | | | | | | | | +--------+ + + + + | 05/01/ | Procedure | Cardiology | | | | 2019 | visit | | | | +--------+ + + + + | 05/01/ | Office | Cardiology | Silvia, | | | 2019 | Visit | | PARISA Vernon W | | | | | | [place], | | | | | | [place] [address] | | | | | | [phone] | | | | | | | | +--------+ + + + + | 05/21/ | Implant | Cardiology | Daljit Singletary, | Remote Device | 2019 | Monitor | | MD [address] | Interrogation | | | | | [place], | (Primary Dx); | | | | | [place] [address] | Pacemaker; | | | | | [phone] | Sinoatrial node | | | | | | dysfunction (HCC) | | | | | | with symptomatic | | | | | | bradycardia | +--------+ + + + + documented as of this encounter Visit Diagnoses Not on filedocumented in this encounter"
--- OUTSIDE RECORDS SUMMARY | ~2020-04-15 | XMS | Encounter Summary ---
Demographics + + + | Address | [address] | | | [place] [address] | + + + | Home Phone [...] + + + + | 12/24/ | [facility] | [facility] | Emmanuel Daniel MD | Pain of upper | | 2018 | Encounter | MED CTR MP INTRA OP | [address], [place] | abdomen (Primary | | | | [address] | [address] [place], [place] | Dx); Functional | | | | [place], [place] | [address] | diarrhea; Weight | | | | [address] | | loss | | | | [phone] | | | +--------+ + + + [...] + + + +---------+ + + | [place]-3 Fatty | CAPS, one capsule by [...] W | | | | | | [place], | | | | | | [place] [address] | | | | | | [phone] | | | | | | | | +--------+ + + + + | 05/01/ | Procedure | Cardiology | | | | 2019 | visit | | | | +--------+ + + + + | 05/01/ | Office | Cardiology | Silvia, | | | 2019 | Visit | | PARISA Vernon W | | | | | | [place], | | | | | | [place] [address] | | | | | | [phone] | | | | | | | | +--------+ + + + + | 05/21/ | Implant | Cardiology | Daljit Singletary, | Remote Device | | 2019 | Monitor | | MD [address] [facility] | Interrogation | | | | | [place], | (Primary Dx); | | | | | [place] [address] | Pacemaker; | | | | | [phone] | Sinoatrial node | | | | [...] + | Performed at: 01 - [facility] [place] [address], | REFERENCE LAB | | [place], [place] [id number] Deckhand Engineer: William Andrew MD, Phone: | ARSH - KINA | | [phone] | | + + + + + + + + | Performing | Address | City/State/Zipcode | Phone Number | | Organization | | | | + + + + + | REFERENCE LAB | [address] | [place], [place] | [phone] | | ARSH - KINA | [facility] | [address] | | + + + + + [...] + | [facility] | [address] | [place] | [phone] | | [facility] | | [address] | | | - LABORATORY | | [...] | | | Aeromonas, Plesiomonas, | | [facility] | | | | E. coli O157 or | | MEDICAL | | | | Yersinia isolated. | | CENTER - | | | | | | LABORATORY | | + + + + + + | Culture | 4+ Usual FloraComment: | | [facility] | | | | Consistent with usual | | [facility] | | | | enteric [...] [address] | [place] | [phone] | | [facility] | | [address] | | | - LABORATORY | | [...] [address] | [place] | [phone] | | [facility] | | [address] | | | - LABORATORY | | [...] + | Performed at: 01 - [facility] [place] [address], | REFERENCE LAB | | [place], [place] [address] Deckhand Engineer: William Andrew MD, Phone: | [facility] | | [phone] | | + + + + + + + + | Performing | Address | City/State/Zipcode | Phone Number | | Organization | | | | + + + + + | REFERENCE LAB | [address] | [place], [place] | [phone] | | [facility] | [facility] | [address] | | + + + + + Lactoferrin, Fecal, Qual (12/24/2017 1:34 PM PST) + + + + + + | Component | Value | Ref Range | Performed | Pathologist | | | | | At | Signature | + + + + + + | Lactoferrin | Negative | Negative | [facility] | | | , Qual | | | [facility] | | | | | [...] [address] | [place] | [phone] | | [facility] | | [address] | | | - LABORATORY | | [...] + | [facility] | [address] | [place] | [phone] | | [facility] | | [address] | | | - LABORATORY | | [...] [address] | [place] | [phone] | | [facility] | | [address] | | | - LABORATORY | | [...] ST. | [address] | [place], [place] | [phone] | | [facility] | | [address] | | | - LABORATORY | | [...] + | [facility] | [address] | [place], [place] | [phone] | | [facility] | | [address] | | | - LABORATORY | | | | + + + + + EGD (12/24/2017 1:19 PM PST) + + | Specimen | + + | | + + + + -+ | Narrative | Performed At | + + -+ | | [facility] | | GastroenterologyPatient Name: Moe SanchezProcedpasha Date: 12/24/2017 | [facility] | | 1:19 PMMRN: [id number] #: [id number] of : | | | 9Admit Type: AmbulatoryAge: 57Room: [facility] 01Gender: MaleNote | | | Status: FinalizedAttending MD: Emmanuel Daniel , MDProcedure: | | | Upper GI endoscopyIndications: Diarrhea, Weight | | | lossProviders: Emmanuel Daniel MD, Maria Isabel Morris RN, | | | Kim Hicks, Tafe Registrar, [place] | | | Sapna Barakat MD (Anesthesia [...] the anesthesiologist and | | | the registered diet technician in the endoscopy suite. Mental Status [...] Out: 1:31:13 PM | | | [facility], [address] [place] [address] | | | [place] [address] | | | - Discharge patient to [...] Out: 1:31:13 PM | | | [facility], [address] [place] [address] | | | [address] | | + + -+ + +---------+ [...] 12/24/2017 | [facility] | | 1:17 PMMRN: [id number] #: [id number] of : | | | 9Admit Type: AmbulatoryAge: 57Room: [facility] 01Gender: MaleNote | | | Status: FinalizedAttending MD: Emmanuel Daniel MDProcedure: | | | ColonoscopyIndications: Clinically significant diarrhea of | | | unexplained originProviders: Emmanuel Daniel MD, Maria Isabel | | | Arturo RN, Kim Hicks, Tafe Registrar, | | | Jarett Barakat MD (Anesthesia [...] | | | the anesthesiologist and the registered diet technician in the endoscopy suite. | | [...] Scope In: 1:32:55 PMScope Out: 1:48:57 PM [facility] | | | [facility], [address] [place] [address] | | | [phone] | | | - Await pathology results. [...] Out: 1:48:57 PM | | | [facility], [address] [place] [address] | | | [address] | | + + -+ + +---------+ [...] | colonic mucosa with focal adenomatous change. CLR:[facility]:C2NR | | | GROSS DESCRIPTION: Received in four parts. A. Received in | | | formalin labeled "Moe Keene, A." and labeled "duodenal bx" on | | | the requisition are six pink-lin tissue fragments measuring from | | | 0.3-0.8 cm submitted, all in (A1). B. Received in formalin labeled | | | "Moe Keene, C." and labeled "B, left colon bx" on the | | | requisition are five pink-lin tissue fragments measuring from 0.2-09.9 | | | cm, submitted, all in (B1). C. Received in formalin labeled | | | "Moe Keene, D." and labeled "C, bx TI" on [...] | | cm, submitted, all in (D1). ka:CLR:[facility] ADDITIONAL NOTES: | | | Immunohistochemical studies were performed on this case with the | | | appropriate positive controls that react as expected. This test was | | | developed and its performance characteristics determined by [facility] | | | [facility]. It has not been cleared or approved by the U.S. Food | | | and Drug Administration. The FDA has determined that such clearance | | | or approval is not necessary. This test is used for clinical | | | purposes. It should not be regarded as investigational or for | | | research. [facility] is certified under the Clinical | | | Laboratory Improvement Amendments of 1988 (CLIA) as qualified to | | | perform high complexity clinical laboratory testing. This assay | | | has not been validated for specimens that have been decalcified. | | | PERFORMING LABORATORY: Tissue processing and slide preparation were | | | performed by [facility], [address], [facility] | | | [place] [address] ([employer]: Evan Frausto M.D. [place]#: | | | [id number]). Professional interpretation was performed by [facility] | | | [facility], [address], [place] [address] | | | ([employer]: Evan Frausto M.D.; [place]#: [id number]). | | | Diagnostician: Rafael Bales MD [...]
--- OUTSIDE RECORDS SUMMARY | ~2020-04-15 | XMS | Encounter Summary ---
Demographics + + + | Address | [address] | | | [place] [address] | + + + | Home Phone [...] Providers + +------+ + | Care Manager Line Name | Role | Phone | [...] + | 07/01/ | Telephone | [facility] | Daljit Singletary, | Other (EKG) | | 2017 | | CARDIOLOGY [address] | MD [address] | | | | | [place], | [place], | | | | | [place] [address] | [place] [address] | | | | | [phone] | | | | | | | [...] | | | | | | [place] [address] | | | | | | [phone] | | | | | | | | +--------+ + + + + | 05/01/ | Procedure | Cardiology | | | | 2019 | visit | | | | +--------+ + + + + | 05/01/ | Office | Cardiology | Silvia, | | | 2019 | Visit | | PARISA [place] [address] | | | | | | [place], | | | | | | [place] [address] | | | | | | [phone] | | | | | | | | +--------+ + + + + | 05/21/ | Implant | Cardiology | Daljit Singletary, | Remote Device | | 2019 | Monitor | | [address] [facility] | Interrogation | | | | | [place], | (Primary Dx); | | | | | [place] [address] | Pacemaker; | | | | | [phone] | Sinoatrial node | | | | | | dysfunction (HCC) | | | | | | with symptomatic | | | | | | bradycardia | +--------+ + + + + documented as of this encounter Visit Diagnoses Not on filedocumented in this encounter"
--- OUTSIDE RECORDS SUMMARY | ~2020-04-15 | XMS | Encounter Summary ---
Demographics + + + | Address | [address] | | | [place] [address] | + + + | Home Phone [...] Providers + +------+ + | Care Psychological Aide Name | Role | Phone | [...] + + | 08/31/ | Refill | [facility] | Kirk French | Medication Refill | | 2018 | | [facility] | MD Brea [address] | | | | | [facility] | | | | | [address] | [place] [address] | | | | | [place], [place] | [phone] | | | | | [address] | | | | | | [phone] | | | +--------+--------+ + + + [...] | | | | | | [place] [address] | | | | | | [phone] | | | | | | | [...] | | | | | | [place] [address] | | | | | | [phone] | | | | | | | | +--------+ + + + + | 05/21/ | Implant | Cardiology | Daljit Singletary, | Remote Device | | 2019 | Monitor | | [facility] | Interrogation | | | | | [place], | (Primary Dx); | | | | | [place] [address] | Pacemaker; | | | | | [phone] | Sinoatrial node | | | | | | dysfunction (HCC) | | | | | | with symptomatic | | | | | | bradycardia | +--------+ + + + + documented as of this encounter Visit Diagnoses Not on filedocumented in this encounter"
--- OUTSIDE RECORDS SUMMARY | ~2020-04-15 | XMS | Encounter Summary ---
Demographics + + + | Address | [address] | | | [place] [address] | + + + | Home Phone [...] Team Providers + +------+ + | Care Non Profit Financial Controller Name | Role | Phone | [...] | | | | | [address] | [address] [place], [place] | | | | | [place], [place] | [address] | | | | | [address] | [phone] | | | | | [phone] | | | +--------+ + + + [...] explained and consent obtained. Patient transported to [facility], | | | 4 | | [...] | 01/05/19950 by | | eral | [id number] catheter system; | Kasie Natarajan RN | [...] | | | | | | [place] [address] | | | | | | [phone] | | | | | | | | +--------+ + + + + | 05/01/ | Procedure | Cardiology | | | | 2019 | visit | | | | +--------+ + + + + | 05/01/ | Office | Cardiology | Silvia, | | | 2019 | Visit | | [address] | | | | | | [place], | | | | | | [place] [address] | | | | | | [phone] | | | | | | | | +--------+ + + + + | 05/21/ | Implant | Cardiology | Daljit Singletary, | Remote Device | 2019 | Monitor | | [place] [address] | Interrogation | | | | | [place], | (Primary Dx); | | | | | [place] [address] | Pacemaker; | | | | | [phone] | Sinoatrial node | | | | [...]
--- OUTSIDE RECORDS SUMMARY | ~2020-04-15 | XMS | Encounter Summary ---
Demographics + + + | Address | [address] | | | [place] [address] | + + + | Home Phone [...] Providers + +------+ + | Care Film Recordist Name | Role | Phone | + [...] 2019 | | GASTROENTEROLOGY | [address] [place] [place] | | | | | [address] [place] | [address] [place], [place] | | | | | 210 [place], [place] | [address] | | | | | [address] | | | | | | [phone] | | | +--------+ + + + [...] | | | | | | [place] [address] | | | | | | [phone] | | | | | | | | +--------+ + + + + | 05/01/ | Procedure | Cardiology | | | | 2019 | visit | | | | +--------+ + + + + | 05/01/ | Office | Cardiology | Silvia, | | | 2019 | Visit | | [address] | | | | | | [place], | | | | | | [place] [address] | | | | | | [phone] | | | | | | | | +--------+ + + + + | 05/21/ | Implant | Cardiology | Daljit Singletary, | Remote Device | 2019 | Monitor | | [address] | Interrogation | | | | | [place], | (Primary Dx); | | | | | [place] [address] | Pacemaker; | | | | | [phone] | Sinoatrial node | | | | | | dysfunction (HCC) | | | | | | with symptomatic | | | | | | bradycardia | +--------+ + + + + documented as of this encounter Visit Diagnoses Not on filedocumented in this encounter"
--- OUTSIDE RECORDS SUMMARY | ~2020-04-15 | XMS | Encounter Summary ---
Demographics + + + | Address | [address] | | | [place] [address] | + + + | Home Phone [...] Providers + +------+ + | Care Dental Professional Name | Role | Phone | [...] + + | 08/19/ | Telephone | [facility] | Silvia, | Other (patient | | 2016 | | CARDIOLOGY [address] | [place] [address] | having issues with | | | | [place], | [place], | high blood pressure) | | | | [place] [address] | [place] [address] | | | | | [phone] | [phone] | | | | | | | [...] | | | | | | [place] [address] | | | | | | [phone] | | | | | | | | +--------+ + + + + | 05/01/ | Procedure | Cardiology | | | | 2019 | visit | | | | +--------+ + + + + | 05/01/ | Office | Cardiology | Silvia, | | | 2019 | Visit | | [address] | | | | | | [place], | | | | | | [place] [address] | | | | | | [phone] | | | | | | | | +--------+ + + + + | 05/21/ | Implant | Cardiology | Daljit Singletary, | Remote Device | 2019 | Monitor | | [address] | Interrogation | | | | | [place], | (Primary Dx); | | | | | [place] [address] | Pacemaker; | | | | | [phone] | Sinoatrial node | | | | | | dysfunction (HCC) | | | | | | with symptomatic | | | | | | bradycardia | +--------+ + + + + documented as of this encounter Visit Diagnoses Not on filedocumented in this encounter"
--- OUTSIDE RECORDS SUMMARY | ~2020-04-15 | XMS | Encounter Summary ---
Demographics + + + | Address | [address] | | | [place] [address] | + + + | Home Phone [...] Providers + +------+ + | Care Camera Systems Engineer Name | Role | Phone [...] Provider Unknown | | | | | [place], [place] | [phone] | | | | | [address] | | | | | | [phone] | | | +--------+ + + + [...] | | | | | | [place] [address] | | | | | | [phone] | | | | | | | | +--------+ + + + + | 05/01/ | Procedure | Cardiology | | | | 2019 | visit | | | | +--------+ + + + + | 05/01/ | Office | Cardiology | Silvia, | | | 2019 | Visit | | [address] | | | | | | [place], | | | | | | [place] [address] | | | | | | [phone] | | | | | | | | +--------+ + + + + | 05/21/ | Implant | Cardiology | Daljit Singletary, | Remote Device | 2019 | Monitor | | [address] [place] | Interrogation | | | | | [place], | (Primary Dx); | | | | | [place] [address] | Pacemaker; | | | | | [phone] | Sinoatrial node | | | | [...]
--- OUTSIDE RECORDS SUMMARY | ~2020-04-15 | XMS | Encounter Summary ---
Demographics + + + | Address | [address] | | | [place] [address] | + + + | Home Phone [...] 2018 | | GASTROENTEROLOGY | [address] [place] | about prep for | | | | [address] [place] | [address] [place], [place] | procedure) | | | | [address] [place], [place] | [address] | | | | | [address] | | | | | | [phone] | | | +--------+ + + + [...] | | | | | | [place] [address] | | | | | | [phone] | | | | | | | [...] | | | | | | [place] [address] | | | | | | [phone] | | | | | | | | +--------+ + + + + | 05/21/ | Implant | Cardiology | Daljit Singletary, | Remote Device | 2019 | Monitor | | [address] | Interrogation | | | | | [place], | (Primary Dx); | | | | | [place] [address] | Pacemaker; | | | | | [phone] | Sinoatrial node | | | | | | dysfunction (HCC) | | | | | | with symptomatic | | | | | | bradycardia | +--------+ + + + + documented as of this encounter Visit Diagnoses Not on filedocumented in this encounter"
--- OUTSIDE RECORDS SUMMARY | ~2020-04-15 | XMS | Encounter Summary ---
Demographics + + + | Address | [address] [place] [address] [address] | | | [place] [address] | + + + | Home Phone [...] [place] | | | | | [address] | | + + + + + Care Team Providers + +------+ + | Care Corrections Cadet Name | Role | Phone | [...] Chest pain | Farooq Almaguer, | [address] | | | | | Bradycardia | DO [address] | [place] | | | | | Procedures | Yao Booth | Mailcode: | | | | | | [place] | [facility] | | | | | TRANSTHORACI | [place], [place] | for Health | | | | | C | [address] | and Healing, | | | | | ECHOCARDIOGR | Phone: | Building [address] | | | | | AM, ADULT | [phone] | [place], [place] | | | | | | Fax: | [address] | | | | | | [phone] | Phone: | | | | | | | [phone] | +--------+--------+ + + + + Encounter Details +--------+ + + + + | Date | Type | Department | Care Team | Description | +--------+ + + + + | 02/03/ | Hospital | Cardiac | | | | 2010 | Encounter | Non-Invasive Testing | | | | | | at [facility] [address] | | | | | [address] Mailcode: [facility] | | | | | | [facility] | | | | | | and Healing, | | | | | | [address] | | | | | | [place], [place] | | | | | | [address] | | | | | | [phone] | | | +--------+ + + + [...]
--- OUTSIDE RECORDS SUMMARY | ~2020-04-15 | XMS | Encounter Summary ---
Demographics + + + | Address | [address] | | | [place] [address] | + + + | Home Phone [...] Providers + +------+ + | Care Insurance Special Agent Name | Role | Phone | [...] [place] | | | | | | [address] | | | | | | [phone] | | | | | | | [...] | | | | | | [place] [address] | | | | | | [phone] | | | | | | | | +--------+ + + + + | 05/01/ | Procedure | Cardiology | | | | 2019 | visit | | | | +--------+ + + + + | 05/01/ | Office | Cardiology | Silvia, | | | 2019 | Visit | | [address] W | | | | | | [place], | | | | | | [place] [address] | | | | | | [phone] | | | | | | | | +--------+ + + + + | 05/21/ | Implant | Cardiology | Daljit Singletary, | Remote Device | | 2019 | Monitor | | MD [address] [place] | Interrogation | | | | | [place], | (Primary Dx); | | | | | [place] [address] | Pacemaker; | | | | | [phone] | Sinoatrial node | | | | | | dysfunction (HCC) | | | | | | with symptomatic | | | | | | bradycardia | +--------+ + + + + documented as of this encounter Visit Diagnoses Not on filedocumented in this encounter"
--- OUTSIDE RECORDS SUMMARY | ~2020-04-15 | XMS | Encounter Summary ---
Demographics + + + | Address | [address] | | | [place] [address] | + + + | Home Phone [...] Team Providers + +------+ + | Care Helper Teacher Name | Role | Phone | [...] Provider Unknown | | | | | [place], [place] | [phone] | | | | | [address] | | | | | | [phone] | | | +--------+ + + + [...] + + + +---------+ + + | Kenton-3 Fatty | CAPS, one capsule by | [...] | | | | | | [place] [address] | | | | | | [phone] | | | | | | | | +--------+ + + + + | 05/01/ | Procedure | Cardiology | | | | 2019 | visit | | | | +--------+ + + + + | 05/01/ | Office | Cardiology | Silvia, | | | 2019 | Visit | | PARISA [address] | | | | | | [place], | | | | | | [place] [address] | | | | | | [phone] | | | | | | | | +--------+ + + + + | 05/21/ | Implant | Cardiology | Daljit Singletary, | Remote Device | | 2019 | Monitor | | [address] [facility] | Interrogation | | | | | [place], | (Primary Dx); | | | | | [place] [address] | Pacemaker; | | | | | [phone] | Sinoatrial node | | | | [...]
--- OUTSIDE RECORDS SUMMARY | ~2020-04-15 | XMS | Encounter Summary ---
Demographics + + + | Address | [address] | | | [place] [address] | + + + | Home Phone [...] Team Providers + +------+ + | Care Pit Clerk Name | Role | Phone | [...] | CARDIOLOGY [address] | MD [address] [place] | | | | | [place], | [place], | | | | | [place] [address] | [place] [address] | | | | | [phone] | [phone] | | | | | | | [...] [place], | | | | | | [place] [address] | | | | | | [phone] | | | | | | | | +--------+ + + + + | 05/01/ | Procedure | Cardiology | | | | 2019 | visit | | | | +--------+ + + + + | 05/01/ | Office | Cardiology | Silvia, | | | 2019 | Visit | | PARISA [place] [address] | | | | | | [place], | | | | | | [place] [address] | | | | | | [phone] | | | | | | | | +--------+ + + + + | 05/21/ | Implant | Cardiology | Daljit Singletary, | Remote Device | 2019 | Monitor | | [address] [facility] | Interrogation | | | | | [place], | (Primary Dx); | | | | | [place] [address] | Pacemaker; | | | | | [phone] | Sinoatrial node | | | | | | dysfunction (HCC) | | | | | | with symptomatic | | | | | | bradycardia | +--------+ + + + + documented as of this encounter Visit Diagnoses Not on filedocumented in this encounter"
--- OUTSIDE RECORDS SUMMARY | ~2020-04-15 | XMS | Encounter Summary ---
Demographics + + + | Address | [address] | | | [place] [address] | + + + | Home Phone [...] Providers + +------+ + | Care Pneumatic Tool Operator Name | Role | Phone [...] 2016 | | CARDIOLOGY [address] | OUTPATIENT PHLEBOTOMIST [address] | | | | | [place], | [place], [place] | | | | | [place] [address] | [address] | | | | | [phone] | | | +--------+--------+ + + + [...] W | | | | | | [place], | | | | | | [place] [address] | | | | | | [phone] | | | | | | | | +--------+ + + + + | 05/01/ | Procedure | Cardiology | | | | 2019 | visit | | | | +--------+ + + + + | 05/01/ | Office | Cardiology | Silvia, | | | 2019 | Visit | | [address] | | | | | | [place], | | | | | | [place] [address] | | | | | | [phone] | | | | | | | | +--------+ + + + + | 05/21/ | Implant | Cardiology | Daljit Singletary, | Remote Device | | 2019 | Monitor | | [address] [facility] [place] [place] | Interrogation | | | | | [place], | (Primary Dx); | | | | | [place] [address] | Pacemaker; | | | | | [phone] | Sinoatrial node | | | | | | dysfunction (HCC) | | | | | | with symptomatic | | | | | | bradycardia | +--------+ + + + + documented as of this encounter Visit Diagnoses Not on filedocumented in this encounter"
--- OUTSIDE RECORDS SUMMARY | ~2020-04-15 | XMS | Encounter Summary ---
Demographics + + + | Address | [address] | | | [place] [address] | + + + | Home Phone [...] Providers + +------+ + | Care Director Apparel Name | Role | Phone | + [...] + | 01/30/ | Telephone | [facility] | Daljit Singletary, | Other | | 2019 | | CARDIOLOGY [address] | MD [address] [place] | | | | | [place], | [place], | | | | | [place] [address] | [place] [address] | | | | | [phone] | [phone] | | | | | | | [...] | | | | | | [place] [address] | | | | | | [phone] | | | | | | | | +--------+ + + + + | 05/01/ | Procedure | Cardiology | | | | 2019 | visit | | | | +--------+ + + + + | 05/01/ | Office | Cardiology | Silvia, | | | 2019 | Visit | | PARISA [address] | | | | | | [place], | | | | | | [place] [address] | | | | | | [phone] | | | | | | | | +--------+ + + + + | 05/21/ | Implant | Cardiology | Daljit Singletary, | Remote Device | 2019 | Monitor | | [address] [place] | Interrogation | | | | | [place], | (Primary Dx); | | | | | [place] [address] | Pacemaker; | | | | | [phone] | Sinoatrial node | | | | [...] 05/02/2019, Expires: | | | | | [place] coronary | 01/30/2020 | | | | | artery of [place] | | | | | | [...] 05/02/2019, Expires: | | | | | [place] coronary | 01/31/2020 | | | | | artery of [place] | | | | | | [...]
--- OUTSIDE RECORDS SUMMARY | ~2020-04-15 | XMS | Clinical Summary ---
Demographics + + + | Address | [address] [place] [address] | | | [place] [address] | + + + | Home Phone [...] [place] | | | | | [address] | | + + + + + Care Team Providers + +------+ + | Care Brazer Production Line Name | Role | Phone | + +------+ + | Darion Holden DO | PCP | | + +------+ + Source Comments IVETTE is fully live on both EpicCare Ambulatory and EpicCare InPatient.[facility] Allergies + + + + + [...] | | | | | | | [address] | | + +--------+ +--------+ + +--------+ | [employer] | AARP | [phone] | 11/22/19 | [phone] | [address] | Indemn | | RETIRED PEOPLE | | | 10-Pre | 9 | [id number] | ity | | | | | sent | | [place] | | | | | | | | [address] | | + +--------+ +--------+ + +--------+ + +--------+ +--------+ + + | Guarantor Name | Accoun | Relation to | Date | Phone | Billing Address | | | t Type | Patient | of | | | | | | | | | | + +--------+ +--------+ + + | Moe Sanchez | Person | Self | [birth year] | [address] | | | cristo/Per | | 1960 | [phone] | [place] | | | roxanne | | | 8 (Home) | [address] | + +--------+ +--------+ + + Advance Directives + + + + + | Type | Date Recorded | Patient | Explanation | | | | Shipping Agent | | + + + + + | Advance | | | | | Directives and | | | | | Living Will | | | | + + + + + | Power of | | | | | Graduate Assistant | | | | + + + + +
--- OUTSIDE RECORDS SUMMARY | ~2020-04-15 | XMS | Encounter Summary ---
Demographics + + + | Address | [address] | | | [place] [address] | + + + | Home Phone [...] Team Providers + +------+ + | Care Entomology Teacher Name | Role | Phone | + +------+ + | Kirk French MD | PCP | | + +------+ + Encounter Details +--------+ + + + + | Date | Type | Department | Care Team | Description | +--------+ + + + + | 06/19/ | Orders Only | [facility] | Fabrice Hylton, | Abnormal weight | | 2019 | | SYSTEM GENERIC OP | MD [address] | loss; Anxiety | | | | CONVERSION [address] | [address] [place], [place] | disorder; Chronic | | | | [address] [place], [place] | [address] | pain syndrome; | | | | [address] | | Obesity; Neuralgia | | | | [phone] | | and neuritis, | | | [...] | | | | | | [place] [address] | | | | | | [phone] | | | | | | | | +--------+ + + + + | 05/01/ | Procedure | Cardiology | | | | 2019 | visit | | | | +--------+ + + + + | 05/01/ | Office | Cardiology | Silvia, | | | 2019 | Visit | | [address] | | | | | | [place], | | | | | | [place] [address] | | | | | | [phone] | | | | | | | | +--------+ + + + + | 05/21/ | Implant | Cardiology | Daljit Singletary, | Remote Device | 2019 | Monitor | | [address] [place] | Interrogation | | | | | [place], | (Primary Dx); | | | | | [place] [address] | Pacemaker; | | | | | [phone] | Sinoatrial node | | | | [...]
--- OUTSIDE RECORDS SUMMARY | ~2020-04-15 | XMS | Encounter Summary ---
Demographics + + + | Address | [address] [place] [address] [address] | | | [place] [address] | + + + | Home Phone [...] [place] | | | | | [address] | | + + + + + Care Team Providers + +------+ + | Care Quitline Counselor Name | Role | Phone | [...] | | | | | Unintentiona | [place], [place] | | | | | | l weight | [address] | | | | | | loss | Phone: | | | | | | Procedures | [phone] | | | | | | CONSULT TO | Fax: | | | | | | NON - IVETTE | [phone] | | | | | | PROVIDER [...] Center at [facility] [address] | MD [address] | normal, recommend | | | | [address] | [place], [place] | hyoscyamine) | | | | Mailcode: [place] | [address] | | | | | for Health and | [phone] | | | | | [facility] 2 | | | | | | [place], [place] | | | | | | [address] | | | | | | [phone] | | | +--------+ + + + [...]
--- OUTSIDE RECORDS SUMMARY | ~2020-04-15 | XMS | Encounter Summary ---
Demographics + + + | Address | [address] [place] [address] [address] | | | [place] [address] | + + + | Home Phone [...] [place] | | | | | [address] | | + + + + + Care Team Providers + +------+ + | Care Fly Rail Operator Name | Role | Phone | [...] | | | [address] | [place], [place] | | | | | Mailcode: Center | [address] | | | | | for Health and | [phone] | | | | | [facility] 2 | | | | | | [place], [place] | | | | | | [address] | | | | | | [phone] | | | +--------+ + + + [...]
--- OUTSIDE RECORDS SUMMARY | ~2020-04-15 | XMS | Encounter Summary ---
Demographics + + + | Address | [address] | | | [place] [address] | + + + | Home Phone [...] + +------+ + | Care Nuclear Plant Construction Worker Name | Role | Phone | + +------+ + | Michael Amanda DO | PCP | | + +------+ + Encounter Details +--------+ + + + + | Date | Type | Department | Care Team | Description | +--------+ + + + + | 01/30/ | Hospital [facility] | Jay Gambino MD | | | 2012 - | Encounter | [facility] | [address] | | | | | CARDIAC TELEMETRY | [address] [place], | | | 01/31/ | | [address] | [place] [address] | | | 2012 | | [place] | [phone] | | | | | [address] | | | | | | [phone] | | | +--------+ + + + [...] 1960 ADMISSION DATE: 01/30/2013 DISCHARGE DATE: 01/31/2013 [id number] / [id number] ADMITTING DIAGNOSES: 1. Symptomatic PVCs. 2. Sinus [...] 150, 1 to 2 tabs daily. 10. [place]-3 fatty acids 1000 mg b.i.d. MOE GAY ADM:01/30/13 [id number] 01/31/13 [place] DISCHARGE SUMMARY [id number] [facility] Carmela Cuevas PAC B [facility] MD Meena Pleitez THIS REPORT IS CONFIDENTIAL AND NOT TO BE RELEASED WITHOUT PROPER AUTHORIZATION. [facility] 11. Valacyclovir 500 mg daily. B. New medication added: Diltiazem CD 180 a day. FOLLOWUP: The patient has a followup appointment on 03/02/2013 at 10:[address] Niles meza at [facility], [address]. No heavy lifting or driving times 48 hours. YOANA Barlow MD A P [facility] #[id number] cc: MD Carmela Pleitez PA-C Electronically Signed 02/06/13 1616 LAKESHIA Barlow Electronically Signed 02/20/13 0731 Jay Gambino MD MOE GAY ADM:01/30/13 [id number] 01/31/13 DIS [place] DISCHARGE SUMMARY [id number] [facility] LAKESHIA Barlow B [facility] Jay Gambino MD R THIS REPORT IS CONFIDENTIAL AND NOT TO BE RELEASED WITHOUT PROPER AUTHORIZATION.Electronica lly signed by Jael Brown at 02/20/2013 7:31 AM FRANCYZzCarmela Moncada - 02/01/20 13 8:44 AM PDT PATIENT NAME: MOE GAY Sex/Age: M / 52Y : 1960 ADMISSION DATE: 01/30/2013 DISCHARGE DATE: 01/31/2013 [id number] / [id number] ADMITTING DIAGNOSES: 1. Symptomatic PVCs. 2. Sinus [...] 150, 1 to 2 tabs daily. 10. [place]-3 fatty acids 1000 mg b.i.d. MOE GAY ADM:01/30/13 [id number] 01/31/13 DIS [place] DISCHARGE SUMMARY [id number] [facility] LAKESHIA Barlow B [facility] MD Meena Pleitez THIS REPORT IS CONFIDENTIAL AND NOT TO BE RELEASED WITHOUT PROPER AUTHORIZATION. [facility] 11. Valacyclovir 500 mg daily. B. New medication added: Diltiazem CD 180 a day. FOLLOWUP: The patient has a followup appointment on 03/02/2013 at 10:[address] Niles meza at [facility], [address]. No heavy lifting or driving times 48 hours. YOANA Barlow MD A P [facility] #[id number] cc: MD Carmela Pleitez PA-C Electronically Signed 02/06/13 1616 LAKESHIA Barlow MOE GAY ADM:01/30/13 [id number] 01/31/13 DIS [place] DISCHARGE SUMMARY [id number] [facility] LAKESHIA Barlow ES B [facility] Jay Gambino MD R THIS REPORT IS [...] + + + +---------+ + + | [place]-3 Fatty | CAPS, one capsule by [...] | | | | | | [place] [address] | | | | | | [phone] | | | | | | | | +--------+ + + + + | 05/01/ | Procedure | Cardiology | | | | 2019 | visit | | | | +--------+ + + + + | 05/01/ | Office | Cardiology | Silvia, | | | 2019 | Visit | | [address] | | | | | | [place], | | | | | | [place] [address] | | | | | | [phone] | | | | | | | | +--------+ + + + + | 05/21/ | Implant | Cardiology | Daljit Singletary, | Remote Device | | 2019 | Monitor | | MD [address] [place] | Interrogation | | | | | [place], | (Primary Dx); | | | | | [place] [address] | Pacemaker; | | | | | [phone] | Sinoatrial node | | | | [...] + | YESSY JONES | [address] | [place] [address] | | | [facility] | [...] + | TRENTONE ROBERT | [address] [place]. | [place] [address] | | | [facility] | | | | | LABORATORY | | | | + + + + + | PROVIDERAULE SACRED | | | | | [facility] | | | | [...] + + | Glucose | 113 (H)Comment: Monegasque | 65 - 99 mg/dL | [facility] | | | | Diabetes Association | [...] + | YESSY JONES | [address] | [place] [address] | | | HEART [facility] | | | | | LABORATORY | | | | + + + + + | YESSY JONES | | | | | HEART [facility] | | | | | LABORATORY | | | | + + + + + documented in this encounter Visit Diagnoses Not on filedocumented in this encounter"
--- OUTSIDE RECORDS SUMMARY | ~2020-04-15 | XMS | Encounter Summary ---
Demographics + + + | Address | [address] | | | [place] [address] | + + + | Home Phone [...] Team Providers + +------+ + | Care Blend Plant Operator Name | Role | Phone [...] 2019 | | GASTROENTEROLOGY | [address] [place] [place] | | | | | [address] [place] | [address] [place], [place] | | | | | [address] [place], [place] | [address] | | | | | [address] | | | | | | [phone] | | | +--------+ + + + [...] | 2019 | | | [address]ISA [address] | | | | | | [place], | | | | | | [place] [address] | | | | | | [phone] | | | | | | | [...] | | | | | | [place] [address] | | | | | | [phone] | | | | | | | | +--------+ + + + + | 05/21/ | Implant | Cardiology | Daljit Singletary, | Remote Device | | 2019 | Monitor | | [address] [place] | Interrogation | | | | | [place], | (Primary Dx); | | | | | [place] [address] | Pacemaker; | | | | | [phone] | Sinoatrial node | | | | | | dysfunction ([facility]) | | | | | | with symptomatic | | | | | | bradycardia | +--------+ + + + + documented as of this encounter Visit Diagnoses Not on filedocumented in this encounter"
--- OUTSIDE RECORDS SUMMARY | ~2020-04-15 | XMS | Encounter Summary ---
Demographics + + + | Address | [address] | | | [place] [address] | + + + | Home Phone [...] Providers + +------+ + | Care Agriculture Inspector Name | Role | Phone | [...] | | 2016 | | [address] | | | | | [place], [place] | [address] | | | | | [address] | [place] [address] | | | | | [phone] | [phone] | | | | | | | [...] W | | | | | | [place], | | | | | | [place] [address] | | | | | | [phone] | | | | | | | | +--------+ + + + + | 05/01/ | Procedure | Cardiology | | | | 2019 | visit | | | | +--------+ + + + + | 05/01/ | Office | Cardiology | Silvia, | | | 2019 | Visit | | PARISA [address] | | | | | | [place], | | | | | | [place] [address] | | | | | | [phone] | | | | | | | | +--------+ + + + + | 05/21/ | Implant | Cardiology | Daljit Singletary, | Remote Device | 2019 | Monitor | | MD [place] | Interrogation | | | | | [facility] [place], | (Primary Dx); | | | | | [place] [address] | Pacemaker; | | | | | [phone] | Sinoatrial node | | | | [...] | | | Basophils | performed at [facility];[address] | 10*3/uL | LAB | | | | [address];[place] [address] | | | | + + + [...] | | | | | Samira;[place] [address] | | | | + + + [...] | | | | | | at [facility];[address] | | | | | | [facility];[place], [place] | | | | | | [address] | | | | + + + [...]
--- OUTSIDE RECORDS SUMMARY | ~2020-04-15 | XMS | Encounter Summary ---
Demographics + + + | Address | [address] | | | [place] [address] | + + + | Home Phone [...] Team Providers + +------+ + | Care Shampoo Assistant Name | Role | Phone | [...] + + | 06/04/ | Hospital | [facility] | Sariah, | Cervical spinal | | 2016 | Encounter | MED CTR XRAY [address] | [place], [address] | stenosis | | | | [place] | [address] | | | | | [place] [address] | [place] [address] | | | | | [phone] | [phone] | | | | | | | [...] + + + +---------+ + + | [place]-3 Fatty | CAPS, one capsule by [...] | | | | | | [place] [address] | | | | | | [phone] | | | | | | | | +--------+ + + + + | 05/01/ | Procedure | Cardiology | | | | 2019 | visit | | | | +--------+ + + + + | 05/01/ | Office | Cardiology | Silvia, | | | 2019 | Visit | | PARISA Vernon [address] | | | | | | [place], | | | | | | [place] [address] | | | | | | [phone] | | | | | | | | +--------+ + + + + | 05/21/ | Implant | Cardiology | Daljit Singletary, | Remote Device | | 2019 | Monitor | | [address] [facility] | Interrogation | | | | | [place], | (Primary Dx); | | | | | [place] [address] | Pacemaker; | | | | | [phone] | Sinoatrial node | | | | [...] | | | | thecal, Starting [facility] 06/04/16 at | | | | | [...]
--- OUTSIDE RECORDS SUMMARY | ~2020-04-15 | XMS | Encounter Summary ---
Demographics + + + | Address | [address] | | | [place] [address] | + + + | Home Phone [...] Providers + +------+ + | Care Stockroom Worker Name | Role | Phone | [...] | RN | | | | | [place], | | | | | | [place] [address] | | | | | | [phone] | | | +--------+ + + + [...] | | | | | | [place] [address] | | | | | | [phone] | | | | | | | [...] | | | | | | [place] [address] | | | | | | [phone] | | | | | | | | +--------+ + + + + | 05/21/ | Implant | Cardiology | Daljit Singletary, | Remote Device | | 2019 | Monitor | | MD Sim Panaca [place] | Interrogation | | | | | [place], | (Primary Dx); | | | | | [place] [address] | Pacemaker; | | | | | [phone] | Sinoatrial node | | | | | | dysfunction (HCC) | | | | | | with symptomatic | | | | | | bradycardia | +--------+ + + + + documented as of this encounter Visit Diagnoses Not on filedocumented in this encounter"
--- OUTSIDE RECORDS SUMMARY | ~2020-04-15 | XMS | Encounter Summary ---
Demographics + + + | Address | [address] | | | [place] [address] | + + + | Home Phone [...] Team Providers + +------+ + | Care Impregnating Helper Name | Role | Phone | [...] | | PVCs | PARISA Vernon | [address] | | | | | Procedures | [address] | [address] | | | | | ID OFFICE | [place] | [place] | | | | | CONSULTATION | [place], | [address] Phone: | | | | | NEW/ESTAB | [place] | [phone] | | | | | PATIENT 40 | [address] | Fax: | | | | | MIN | Phone: | [phone] | | | | | | [phone] | | | | | | | Fax: | | | | | | | [phone] | | +--------+--------+ + + + + Encounter Details +--------+---------+ + + + | Date | Type | Department | Care Team | Description | +--------+---------+ + + + | 11/30/ | Office | [facility] | Jay Gambino MD | Symptomatic PVCs | | 2015 | Visit | [facility]ARDIOLOGY [place] | [address] | (Primary Dx) | | | | HI[address] | [address] [place], | | | | | [facility] [address] [place] | [place] [address] | | | | | [address] | [phone] | | | | | [phone] | | | +--------+---------+ + + + [...] MD - 11/30/2014 5:37 PM PST [facility] [address] [place] [address] Patient Name: Moe Sanchez Date: 1960 Date [...] luz marcos as needed for Chest pain. 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 Should you have any questions or concerns, [...] W | | | | | | [place], | | | | | | [place] [address] | | | | | | [phone] | | | | | | | | +--------+ + + + + | 05/01/ | Procedure | Cardiology | | | | 2019 | visit | | | | +--------+ + + + + | 05/01/ | Office | Cardiology | Silvia, | | | 2019 | Visit | | PARISA Vernon W | | | | | | [place], | | | | | | [place] [address] | | | | | | [phone] | | | | | | | | +--------+ + + + + | 05/21/ | Implant | Cardiology | AnshujohnsoncherelleDaljit, | Remote Device | | 2019 | Monitor | | [address] [facility] | Interrogation | | | | | [place], | (Primary Dx); | | | | | [place] [address] | Pacemaker; | | | | | [phone] | Sinoatrial node | | | | [...]
--- OUTSIDE RECORDS SUMMARY | ~2020-04-15 | XMS | Encounter Summary ---
Demographics + + + | Address | [address] | | | [place] [address] | + + + | Home Phone [...] Providers + +------+ + | Care Airline Managerial Supervisor Name | Role | Phone | [...] | | | | exertion | | [place] | | | | | Chest pain | | [place], [place] | | | | | on exertion | | [address] | | | | | | | Phone: | | | | | | | [phone] | | | | | | | Fax: | | | | | | | [phone] | +--------+--------+ + + + + Encounter Details +--------+ + + + + | Date | Type | Department | Care Team | Description | +--------+ + + + + | 04/27/ | [facility] Martell Hart | Chest pain on | | 2014 - | | [facility] CTR MED[facility] | Sanjay Palacios MD | exertion (Primary | | | | [address] [place] | [address] | Dx); Dyspnea on | | 03/20/ | | [place] [address] | [place] | exertion; Essential | | 2014 | | [phone] | [address] | hypertension; Acute | | | | | | chest pain; | | | | | [place], | Dizziness, | | | | | [address] | nonspecific; Mixed | | | | | [place] | anxiety depressive | | | | | [address] | disorder; PUD | | | | | [phone] | (peptic ulcer | | | | [...] 911 aka: NITROSTAT ONE TOUCH DELICA LANCETS [facility] Check glucose as needed for hypoglycemia OSTEO [...] Daily. to reduce urinary frequency - Lot #[id number], exp 07/2016 aka: RAPAFLO UNCODED MEDICATION - [...] hospital follow up Contact information: [address] [address] Call PARISA Russell. Specialty: Nurse Practitioner Why: As needed Contact information: [address] [place] [address] Condition: Patient being discharged with condition improved. Diet: Heart healthy, avoid acidic drinks and foods, spicy foods, too much coffee. Greater than 30 minutes were spent on discharge and coordination of post-hospital care. Electronically signed by: Thierry Fregoso DO, 03/20/2015 11:22 [facility] Portions of this chart may have been created with Nuzzel voice recognition software. Occasi onal wrong-word or [...] afford the prescribed medication, you can try qekg-uxp-dkzcbio acid blockers, such as Pepcid AC, Tagamet, [...] or as directed by your healthcare provider [phone] The [email or web address]. [address] [place] [address]. All righ ts reserved. This information is [...] + + + +---------+ + + | [place]-3 Fatty | CAPS, one capsule by | [...] | | | | | | | #[id number], exp 07/2016 | | | | | [...] Sanchez : 1960: Age: 55 y.o. MedRec: [id number] PCP: Kirk French Admission date: 03/18/2015 Hospital [...] 1708 03/18/15 1528 TROPONINI <0.01 <0.01 0.01 [facility] ECHOCARDIOGRAM REPORT STUDY DATE: 03/19/2015 PATIENT [...] changes. No results for input(s): PHART, PO2ART, DPZ3JJO, ZCI5CSH, BEART, K6XVGSNC in the last 168 h ours. No results for input(s): SPECSOURCE, PHPOCB, HCO3, TCO2, BEART, BE, TJRT8SQT in the last 16 8 hours. Invalid input(s): WGUGP4JR, CDGJ3ZB Point of care glucose: No results for [...] minutes today. Thierry Fregoso DO 03/19/2015 22:09 [facility] Portions of this chart may have been created with Nuzzel voice recognition software. Occasi onal wrong-word or sound-alike substitutions may have occurred due to the inherent granger itations of voice recognition software. Please read the chart carefully and recognize, using context, where these substitutions have occurred Belén Cho RN - 03/19/2015 11:03 AM [id number] Report given to Marlen morejon who is [...] | | | | | | [place] [address] | | | | | | [phone] | | | | | | | [...] | | | | | | [place] [address] | | | | | | [phone] | | | | | | | | +--------+ + + + + | 05/21/ | Implant | Cardiology | Daljit Singletary, | Remote Device | | 2020 | Monitor | | MD [address] [facility] | Interrogation | | | | | [place], | (Primary Dx); | | | | | [place] [address] | Pacemaker; | | | | | [phone] | Sinoatrial node | | | | [...] Performed At | + + + | [facility] ECHOCARDIOGRAM REPORT | | | STUDY [...] | | Signed by: Daljit Singletary MD [facility] 03/19/2015 15:44 | | | Nanosystems Engineer: Dewey Valdez RDMS | | + [...] + + | Performing | Address | City/State[facility] | Phone Number | | Organization | | | | + + + + + | [facility] | [address] | [place] | [phone] | | [facility] | | [address] | | | - LABORATORY | | [...] mL/min/1.73m2 | [facility] | | | [place] | RATE,ESTIMATED | | MEDICAL | | | | mL/min/1.53f4Xgux than | | CENTER - | | [...] + | [facility] | [address] | [place], [place] | [phone] | | [facility] | | [address] | | | - LABORATORY | | [...] [address] | [place] | [phone] | | [facility] | | [address] | | | - LABORATORY | | [...] + + | Performing | Address | City/State/[facility] Hospital[facility] | Phone Number | | Organization | | | | + + + + + | [facility] | [address] | [place] | [phone] | | [facility] | | [address] | | | - LABORATORY | | [...] | [address] | [place] | [phone] | | [facility] | | [address] | | | - LABORATORY | | [...] | [facility] | [address] | [place] | [phone] | | [facility] | | [address] | | | - LABORATORY | | [...] [address] | [place] | [phone] | | [facility] | | [address] | | | - LABORATORY | | [...] [address] | [place], [place] | [phone] | | [facility] | | [address] | | | - LABORATORY | | [...] [address] | [place] | [phone] | | [facility] | | [address] | | | - LABORATORY | | [...] | [facility] | [address] | [place], [place] | [phone] | | [facility] | | [address] | | | - LABORATORY | | [...] mL/min/1.73m2 | [facility] | | | [place] | RATE,ESTIMATED | | MEDICAL | | | | mL/min/1.51l6Dqkd than | | CENTER - | | [...] + | [facility] | [address] | [place] | [phone] | | [facility] | | [address] | | | - LABORATORY | | [...] [address] | [place] | [phone] | | [facility] | | [address] | | | - LABORATORY | | [...]
--- OUTSIDE RECORDS SUMMARY | ~2020-04-15 | XMS | Encounter Summary ---
Demographics + + + | Address | [address] | | | [place] [address] | + + + | Home Phone [...] Team Providers + +------+ + | Care Conventions Assistant Name | Role | Phone | [...] + + | 02/21/ | Office | [facility] | Silvia, | Coronary artery | | 2019 | Visit | CARDIOLOGY [address] | PARISA Vernon [address] | disease involving | | | | [place], | [place], | north fork coronary | | | | [place] [address] | [place] [address] | artery of north fork | | | | [phone] | [phone] | heart without angina | | | [...] of non-critical coronary artery d isease involving north fork coronary artery of north fork heart without angina pectoris, essential h ypertension, [...] stay active. He enjoys hunting in his [employer] t sherin. He has not had any [...] Preventative health care Coronary artery disease involving north fork coronary artery of north fork heart without angina pectoris Cannabis abuse, daily [...] 3RD DOSE, CALL 911 100 tablet 3 [place]-3 Fatty Acids (SALMON OIL-1000 PO) CAPS, one capsule by mouth daily twice daily ondansetron (ZOFRAN ODT) 4 mg disintegrating tablet Take 4 mg by mouth. ONE TOUCH DELICA LANCETS [facility] [...] was found Confirmed by ANGELA MARADIAGA MD ([id number]) on 01/03/2019 8:10:39 PM LAB RESULTS reviewed during visit today primarily from [facility]: LIPID Lab Results Component Value Date [...] BNP 15 01/02/2019 I reviewed records from [facility] for angiogram results on 019 which is summarized in the HPI. RESULTS- I reviewed reports from [facility]: No results found. Left heart catheterization [...] ASSESSMENT: 1. Non-critical Coronary artery disease involving north fork coronary artery of north fork heart [facility] angina pectoris: A.Normal exercise sestamibi [...] Symptoms with moderate exertion of t he [place] [employer] functional class. Heart failure stage [...] performed by Dr Juan Diego Gambino at [facility] on 01/30/2013.Patient had spontaneous PVC's fro [...] of presyncope [facility] to have vasovagal symptoms. B. [...] this chart may have been created with [employer] voice recognition software. Occasi onal wrong-word [...] | | | | | | [place], | | | | | | [place] [address] | | | | | | [phone] | | | | | | | | +--------+ + + + + | 05/01/ | Procedure | Cardiology | | | | 2019 | visit | | | | +--------+ + + + + | 05/01/ | Office | Cardiology | Silvia, | | | 2019 | Visit | | PARISA Vernon W | | | | | | [place], | | | | | | [place] [address] | | | | | | [phone] | | | | | | | | +--------+ + + + + | 05/21/ | Implant | Cardiology | Daljit Singletary, | Remote Device | | 2019 | Monitor | | [address] [facility] | Interrogation | | | | | [place], | (Primary Dx); | | | | | [place] [address] | Pacemaker; | | | | | [phone] | Sinoatrial node | | | | | | dysfunction (HCC) | | | | | | with symptomatic | | | | | | bradycardia | +--------+ + + + + documented as of this encounter Visit Diagnoses + + | Diagnosis | + + | Coronary artery disease involving north fork coronary artery of north fork heart without | | angina pectoris - Primary | + + | Symptomatic PVCs Other premature beats | + + | Essential hypertension Unspecified essential hypertension | + + documented in this encounter
--- OUTSIDE RECORDS SUMMARY | ~2020-04-15 | XMS | Encounter Summary ---
Demographics + + + | Address | [address] | | | [place] [address] | + + + | Home Phone [...] Providers + +------+ + | Care Basket Mender Name | Role | Phone | [...] | | [address] [place] | [place] [address] | | | | | [place] [address] | | | | | | [phone] | | | +--------+ + + + [...] W | | | | | | [place], | | | | | | [place] [address] | | | | | | [phone] | | | | | | | | +--------+ + + + + | 05/01/ | Procedure | Cardiology | | | | 2019 | visit | | | | +--------+ + + + + | 05/01/ | Office | Cardiology | Silvia, | | | 2019 | Visit | | PARISA Vernon W | | | | | | [place], | | | | | | [place] [address] | | | | | | [phone] | | | | | | | | +--------+ + + + + | 05/21/ | Implant | Cardiology | Daljit Singletary, | Remote Device | 2019 | Monitor | | [address] [place] | Interrogation | | | | | [place], | (Primary Dx); | | | | | [place] [address] | Pacemaker; | | | | | [phone] | Sinoatrial node | | | | [...] for comparison only - no result from [place]. | | + + + + +---------+ + + | Performing | Address | City/State/Zipcode | Phone Number | | Organization | | | | + +---------+ + + | [facility] | | | | + +---------+ + + documented in this encounter Visit Diagnoses Not on filedocumented in this encounter"
--- OUTSIDE RECORDS SUMMARY | ~2020-04-15 | XMS | Encounter Summary ---
Demographics + + + | Address | [address] | | | [place] [address] | + + + | Home Phone [...] Team Providers + +------+ + | Care Hod Carrier Name | Role | Phone | + +------+ + PCP | Unavailable | + +------+ + Encounter Details +--------+ + + + + | Date | Type | Department | Care Team | Description | +--------+ + + + + | 11/12/ | Hospital | [facility] | | | | 1994 | Encounter | MED CTR GENERIC OP | | | | | | CONV DEPT [address] | | | | | | [place], | | | | | | [place] [address] | | | | | | [phone] | | | +--------+ + + + [...] | | | | | | [place] [address] | | | | | | [phone] | | | | | | | | +--------+ + + + + | 05/01/ | Procedure | Cardiology | | | | 2019 | visit | | | | +--------+ + + + + | 05/01/ | Office | Cardiology | Silvia, | | | 2019 | Visit | | PARISA Vernon W | | | | | | [place], | | | | | | [place] [address] | | | | | | [phone] | | | | | | | | +--------+ + + + + | 05/21/ | Implant | Cardiology | Daljit Singletary, | Remote Device | 2019 | Monitor | | [place] [address] | Interrogation | | | | | [place], | (Primary Dx); | | | | | [place] [address] | Pacemaker; | | | | | [phone] | Sinoatrial node | | | | | | dysfunction (HCC) | | | | | | with symptomatic | | | | | | bradycardia | +--------+ + + + + documented as of this encounter Visit Diagnoses Not on filedocumented in this encounter"
--- OUTSIDE RECORDS SUMMARY | ~2020-04-15 | XMS | Encounter Summary ---
Demographics + + + | Address | [address] | | | [place] [address] | + + + | Home Phone [...] Providers + +------+ + | Care Bead Wrapper Name | Role | Phone | [...] + | 01/30/ | Telephone | [facility] | Daljit Singletary, | Other | | 2019 | | CARDIOLOGY [address] | MD [address] [place] | | | | | [place], | [place], | | | | | [place] [address] | [place] [address] | | | | | [phone] | [phone] | | | | | | | [...] | | | | | | [place] [address] | | | | | | [phone] | | | | | | | | +--------+ + + + + | 05/01/ | Procedure | Cardiology | | | | 2019 | visit | | | | +--------+ + + + + | 05/01/ | Office | Cardiology | Silvia, | | | 2019 | Visit | | PARISA [address] | | | | | | [place], | | | | | | [place] [address] | | | | | | [phone] | | | | | | | | +--------+ + + + + | 05/21/ | Implant | Cardiology | Daljit Singletary, | Remote Device | 2019 | Monitor | | [address] | Interrogation | | | | | [place], | (Primary Dx); | | | | | [place] [address] | Pacemaker; | | | | | [phone] | Sinoatrial node | | | | [...] 05/02/2019, Expires: | | | | | soboba coronary | 01/30/2020 | | | | [...] 05/02/2019, Expires: | | | | | soboba coronary | 01/31/2020 | | | | [...] soboba heart without | | angina pectoris - Primary | + + | Hyperlipidemia, mixed Mixed hyperlipidemia | + + documented in this encounter"
--- OUTSIDE RECORDS SUMMARY | ~2020-04-15 | XMS | Encounter Summary ---
Demographics + + + | Address | [address] | | | [place] [address] | + + + | Home Phone [...] + + | 05/14/ | Office | [facility] | Silvia, | Coronary artery | | 2013 | Visit | CARDIOLOGY [address] | [place] [address] | disease (Primary | | | | [place], | [place], | Dx); Hypertension; | | | | [place] [address] | [place] [address] | Hyperlipidemia; | | | | [phone] | [phone] | Syncope; Other chest | | | [...] needed for Chest pain. 25 tablet 12 [place]-3 Fatty Acids (SALMON OIL-1000 PO) CAPS, one [...] attenuation cannot completely be ruled out. D. [facility] 12/25/13, shows noncritical coronary artery disease, [...] exercising. He is in class II of [place] [employer] functional class. There are no [...] to go back in 3 days to [place] for an attempt of ablation under [...] palpitations.. He is in class II of [place] [employer] functional class. There are no [...] his blood pressure logs from [facility] 5. Lightheadedness and dizziness/ presyncope: A. Episode [...] made to ensure accuracy; however, inadvertent computerized detailer furniture errors may be pre sent. Electronically signed [...] | | | | | | [place] [address] | | | | | | [phone] | | | | | | | [...] | | | | | | [place] [address] | | | | | | [phone] | | | | | | | | +--------+ + + + + | 05/21/ | Implant | Cardiology | Daljit Singletary, | Remote Device | | 2019 | Monitor | | [address] [facility] | Interrogation | | | | | [place], | (Primary Dx); | | | | | [place] [address] | Pacemaker; | | | | | [phone] | Sinoatrial node | | | | [...] of unspecified type of | | vessel, [place] or graft | + + | Hypertension Unspecified essential hypertension | + + | Hyperlipidemia Other and unspecified hyperlipidemia | + + | Syncope Syncope and collapse | + + | Other chest pain | + + | Chest pain Chest pain, unspecified | + + documented in this encounter
--- OUTSIDE RECORDS SUMMARY | ~2020-04-15 | XMS | Encounter Summary ---
Demographics + + + | Address | [address] | | | [place] [address] | + + + | Home Phone [...] Team Providers + +------+ + | Care Bpo Specialist Name | Role | Phone | [...] | RN | | | | | [place], | | | | | | [place] [address] | | | | | | [phone] | | | +--------+ + + + [...] W | | | | | | [place], | | | | | | [place] [address] | | | | | | [phone] | | | | | | | | +--------+ + + + + | 05/01/ | Procedure | Cardiology | | | | 2019 | visit | | | | +--------+ + + + + | 05/01/ | Office | Cardiology | Silvia | | | 2019 | Visit | | PARISA [address] W | | | | | | [place], | | | | | | [place] [address] | | | | | | [phone] | | | | | | | | +--------+ + + + + | 05/21/ | Implant | Cardiology | Daljit Singletary, | Remote Device | | 2019 | Monitor | | MD [address] [place] [place] | Interrogation | | | | | [place], | (Primary Dx); | | | | | [place] [address] | Pacemaker; | | | | | [phone] | Sinoatrial node | | | | | | dysfunction (HCC) | | | | | | with symptomatic | | | | | | bradycardia | +--------+ + + + + documented as of this encounter Visit Diagnoses Not on filedocumented in this encounter"
--- OUTSIDE RECORDS SUMMARY | ~2020-04-15 | XMS | Encounter Summary ---
Demographics + + + | Address | [address] | | | [place] [address] | + + + | Home Phone [...] Team Providers + +------+ + | Care Renal Case Manager Name | Role | Phone [...] | 01/04/ | Telephone | [facility] | Emmanuel Daniel MD | Other | | 2019 | | GASTROENTEROLOGY | [address] [place] | | | | | [address] [place] | [address] [place], [place] | | | | | 210 [place], [place] | [address] | | | | | [address] | | | | | | [phone] | | | +--------+ + + + [...] | | | | | | [place] [address] | | | | | | [phone] | | | | | | | | +--------+ + + + + | 05/01/ | Procedure | Cardiology | | | | 2019 | visit | | | | +--------+ + + + + | 05/01/ | Office | Cardiology | Silvia, | | | 2019 | Visit | | PARISA Vernon W | | | | | | [place], | | | | | | [place] [address] | | | | | | [phone] | | | | | | | | +--------+ + + + + | 05/21/ | Implant | Cardiology | Daljit Singletary, | Remote Device | | 2019 | Monitor | | [address] [facility] | Interrogation | | | | | [address] [place], | (Primary Dx); | | | | | [place] [address] | Pacemaker; | | | | | [phone] | Sinoatrial node | | | | | | dysfunction (HCC) | | | | | | with symptomatic | | | | | | bradycardia | +--------+ + + + + documented as of this encounter Visit Diagnoses Not on filedocumented in this encounter"
--- OUTSIDE RECORDS SUMMARY | ~2020-04-15 | XMS | Encounter Summary ---
Demographics + + + | Address | [address] | | | [place] [address] | + + + | Home Phone [...] Providers + +------+ + | Care Hospital Nursing Assistant Name | Role | Phone [...] 2019 | | GASTROENTEROLOGY | [address] [place] [place] | | | | | [address] [place] | [address] [place], [place] | | | | | [address] [place], [place] | [address] | | | | | [address] | | | | | | [phone] | | | +--------+ + + + [...] | | | | | | [place] [address] | | | | | | [phone] | | | | | | | | +--------+ + + + + | 05/01/ | Procedure | Cardiology | | | | 2020 | visit | | | | +--------+ + + + + | 05/01/ | Office | Cardiology | Silvia, | | | 2019 | Visit | | [address] W | | | | | | [place], | | | | | | [place] [address] | | | | | | [phone] | | | | | | | | +--------+ + + + + | 05/21/ | Implant | Cardiology | Daljit Singletary, | Remote Device | 2019 | Monitor | | [address] [place] | Interrogation | | | | | [place], | (Primary Dx); | | | | | [place] [address] | Pacemaker; | | | | | [phone] | Sinoatrial node | | | | | | dysfunction (HCC) | | | | | | with symptomatic | | | | | | bradycardia | +--------+ + + + + documented as of this encounter Visit Diagnoses Not on filedocumented in this encounter"
--- OUTSIDE RECORDS SUMMARY | ~2020-04-15 | XMS | Encounter Summary ---
Demographics + + + | Address | [address] | | | [place] [address] | + + + | Home Phone [...] Team Providers + +------+ + | Care Ingredient Mixer Name | Role | Phone | [...] | | | Diarrhea/ | [address] | [place], [place] | | | | | Rectal | [place] | [address] | | | | | Bleeding | [address] | Phone: | | | | | from [facility] | Phone: | [phone] | | | | | referral. | [phone] | Fax: | | | | | | Fax: | [phone] | | | | | | [phone] | | + + + + + [...] + + | 01/21/ | Telephone | [facility] | Kirk French | Other (wanted to let | | 2019 | | [facility] | MD Brea [address] | us know the St. | | | | [facility] [address] | [address] | [place] cancelled his | | | | [address] | [place] [address] | appointment for a | | | | [place], [place] | [phone] | colonoscopy) | | | | [address] | | | | | | [phone] | | | +--------+ + + + [...] | | | | | | [place] [address] | | | | | | [phone] | | | | | | | [...] | | | | | | [place] [address] | | | | | | [phone] | | | | | | | | +--------+ + + + + | 05/21/ | Implant | Cardiology | Daljit Singletary, | Remote Device | | 2019 | Monitor | | MD [address] [place] | Interrogation | | | | | [place], | (Primary Dx); | | | | | [place] [address] | Pacemaker; | | | | | [phone] | Sinoatrial node | | | | [...]
--- OUTSIDE RECORDS SUMMARY | ~2020-04-15 | XMS | Encounter Summary ---
Demographics + + + | Address | [address] | | | [place] [address] | + + + | Home Phone [...] Providers + +------+ + | Care Management And Budget Analyst Name | Role | Phone | [...] + + | 09/05/ | Office | [facility] | Geri Angel, | SINUS BRADYCARDIA | | 2012 | Visit | CARDIOLOGY [address] | IRRIGATOR [address] | (Primary Dx); | | | | [place], | [place], [place] | Symptomatic PVCs; | | | | [place] [address] | [address] | Hypertension; | | | | [phone] | | Hyperlipidemia | +--------+---------+ + + [...] and/or ref er you to electrophysiology in [place]. 3. Return in 3 months, or sooner [...] he did not followup with electrophysiology in [place], so he has remained on diltiaze m [...] Family Status Relation Status Age Mother 62 [place] Father Alive Unknown health Brother Alive Sister [...] by mouth Ken y. 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 There are no [...] he would like to see electrophysiology in [place] rather than [place] as he paulino s family there, if [...] made to ensure accuracy; however, inadvertent computerized soiled linen distributor errors may be pre sent. Electronically signed [...] | | | | | | [place] [address] | | | | | | [phone] | | | | | | | [...] | | | | | | [place] [address] | | | | | | [phone] | | | | | | | | +--------+ + + + + | 05/21/ | Implant | Cardiology | Daljit Singletary, | Remote Device | | 2019 | Monitor | | [address] | Interrogation | | | | | [place], | (Primary Dx); | | | | | [place] [address] | Pacemaker; | | | | | [phone] | Sinoatrial node | | | | [...]
--- OUTSIDE RECORDS SUMMARY | ~2020-04-15 | XMS | Encounter Summary ---
Demographics + + + | Address | [address] [place] [address] [address] | | | [place] [address] | + + + | Home Phone [...] [place] | | | | | [address] | | + + + + + Care Team Providers + +------+ + | Care Respiratory Medicine Physician Name | Role | Phone | [...] | | [facility] | | | | [place], [place] | | | | | | [address] | | | | | | [phone] | | | +--------+------+ + + + [...] | [facility] | | [facility] [place] [address] | REGIONAL | | [place] [address] | LABORATORY | + + + + + + + + | Performing | Address | City/State/Zipcode | Phone Number | | Organization | | | | + + + + + | [facility] | [address] | [place] [address] | | | LABORATORY | | | [...] ([facility]) | | | [facility] [address] | | | [place] [address] | | + + + + + + + + | Performing | Address | City/State/Zipcode | Phone Number | | Organization | | | | + + + + + | [facility] | [address] | [place] [address] | | | LABORATORY | | | [...] DEPARTMENT OF | [address] | [place] [address] | | | PATHOLOGY | [address] | | | + + + + + documented in this encounter Visit Diagnoses + + | Diagnosis | + + | Chest pain Chest pain, unspecified | + + | Bradycardia Other specified cardiac dysrhythmias | + + documented in this encounter"
--- OUTSIDE RECORDS SUMMARY | ~2020-04-15 | XMS | Encounter Summary ---
Demographics + + + | Address | [address] [place] [address] CALEB LOZANO | | | [place] [address] | + + + | Home Phone [...] [place] | | | | | [address] | | + + + + + Care Team Providers + +------+ + | Care Community Service Organization Director Name | Role | Phone | [...] 2 | | | | | | [place], [place] | [place], [place] | | | | | | [address] | [address] | | | | | | Phone: | Phone: | | | | | | [phone] | [phone] | | | | | | Fax: | Fax: | | | | | | [phone] | [phone] | +--------+--------+ + + + + Encounter Details +--------+---------+ + + + | Date | Type | Department | Care Team | Description | +--------+---------+ + + + | 09/28/ | Office | Digestive Health | Bridgette Rios, | Chronic diarrhea | | 2019 | Visit | [facility] [address] | [address] | (Primary Dx); | | | | [address] | [place], [place] | Abdominal cramping; | | | | Mailcode: Reubens | [address] | Unintentional weight | | | | for Health and | [phone] | loss | | | | [facility] [place], [facility] 2 | | | | | | [place], [place] | | | | | | [address] | | | | | | [phone] | | | +--------+---------+ + + + [...] some lab orders to [facility] 2. 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 Gastroenterology Clinic [facility] ~ Initial Consultation / New [...] inflammatory bowel disease. CT scan done through [facility] November show ed mild diverticulosis without [...] of Present Illness: Here with his from [place] for second opinion regarding severe abdominal cramps, isreal rrhea and weight loss following a GI illness contracted during a trip to [facility]. He reports that 2 years ago he was traveling in [facility] and he had some suspicious seafood. He develo ps profound bloody diarrhea with severe abdominal pain. He was hospitalized in [facility] and w as treated with IV [...] Plan and Recommendations: 1. [facility] in [place] for stool studies as outlined above 2. If negative and symptoms persist, recommend capsule endoscopy (this could be completed b y local drilling contractor or he could return to [place] for this test) 3. Nortryptiline 25mg q HS with instruction to titrate to 50mg q HS after 2 weeks if tolera kevin Follow-Up: with local drilling contractor Counseling Time: I spent a total of 35 minutes with this patient, of which greater than 50 % of the time was spent in counseling. Specific issues that were discussed included a revie w of the disease, diagnostic tools that help in our management plans for the patient's chron ic diarrhea, abdominal cramping and weight loss and goals for treatment. Bridgette Rios MD Emergency Room Clinician Gastroenterology documented in this e ncounter Plan [...]
--- OUTSIDE RECORDS SUMMARY | ~2020-04-15 | XMS | Encounter Summary ---
Demographics + + + | Address | [address] | | | [place] [address] | + + + | Home Phone [...] Providers + +------+ + | Care Renal Social Worker Name | Role | Phone | + +------+ + PCP | Unavailable | + +------+ + Encounter Details +--------+ + + + + | Date | Type | Department | Care Team | Description | +--------+ + + + + | 05/24/ | Hospital | [facility] | Chi Fang | Unspecified Chest | | 2008 - | Encounter | [facility]ICAL [facility]ENTER | MD Kelsey [address] | Pain | | | | CLINICAL DECISION | CHRISTOPH HERNANDEZ | | | 05/25/ | | [address] | [address] | | | 2008 | | [place], [place] | [phone] | | | | | [address] | | | | | | [phone] | | | +--------+ + + + [...] W | | | | | | [place], | | | | | | [place] [address] | | | | | | [phone] | | | | | | | | +--------+ + + + + | 05/01/ | Procedure | Cardiology | | | | 2019 | visit | | | | +--------+ + + + + | 05/01/ | Office | Cardiology | Silvia, | | | 2019 | Visit | | PARISA Vernon [address] | | | | | | [place], | | | | | | [place] [address] | | | | | | [phone] | | | | | | | | +--------+ + + + + | 05/21/ | Implant | Cardiology | Daljit Singletary, | Remote Device | 2019 | Monitor | | MD [address] [place] | Interrogation | | | | | [place], | (Primary Dx); | | | | | [place] [address] | Pacemaker; | | | | | [phone] | Sinoatrial node | | | | [...] Performed At | + + + | [id number] | | | Page 1 RADIOLOGY | | | [facility] [address]/ | | | [facility] | | | CENTER NAME: [place] [address] | | | | | | | | | DATE OF : 1960 ORDER NUMBER: | | | [id number] EXAM DATE/TIME: 05/25/2009 08:00 A ORDERING PHYSICIAN: [...] | | administration of 14.9 mCi of iipwwtmpdx-87r-jxjxrgj Myoview. Stress | | | images postinjection [...] | | | images. Prone images demonstrate mosque of the inferior wall | | | [...] | | A P | | | TSG/earlene/[id number]/ cc: MD FEMI FOSS, | | | MD AMY SULLIVAN, DO | | + + + + + | Procedure Note | + + | Kalpesh Brown - 07/17/2019 2:13 AM PDT | | [id number] Page 1 | | RADIOLOGY CDU 11763/ | | OPO | | [facility] NAME: [address]AY | | [place] [address] | | | | DATE OF : 1960 | | | | ORDER NUMBER: [id number] | | EXAM DATE/TIME: 05/25/2009 08:00 A [...] administration of 14.9 mCi | | of janpbztrau-73b-jtomcki Myoview. Stress images postinjection of 47.7 | [...] | | | | Prone images demonstrate mosque of the inferior wall nicely. | | [...] | | Read by | | FEMI MAREI MD 05/25/2009 11:47 A | | Electronically Signed by | | FEMI MARIE MD 05/25/2009 03:33 P | | | | A | | P | | TSG/dc/[id number]/ | | cc: ANGELA MARADIAGA MD | | FEMI MARIE MD | | CHI FANG MD | | AMY BANEGAS DO | + + ECHO Complete (05/25/2009 7:50 AM PDT) + + | Specimen | + + | | + + + + + | Narrative | Performed At | + + + | [id number] | | | Page 1 ECHO [facility] NAME: | | | [place] [address] MEDICAL RECORD #: | | | [id number] | | | DATE OF : 1960 ORDER | | | NUMBER: [id number] EXAM DATE/TIME: 05/25/2009 07:34 PERFORMING | | [...] Excursion: | | | 1.89 cm E-F Crisp: 0.08 m/s HR: 43.51 BPM AV maxP.11 [...] | | | 0.33 m/s TV Dec Crisp: 1.73 m/s2 TV Dec Time: 344.24 ms TV | | | E Bravo: 0.59 m/s TV E/A Ratio: 1.80 TV maxP.40 mmHg TV | | | meanP.44 mmHg TV Vmax: 0.59 m/s TV Vmean: 0.30 m/s TV | | | VTI: 22.88 cm Instructional Aide: ANTHONY Authenticated by: Edwardo Tee | | | Carlos WINKLER Report Date/Time: 05-25-2009 10:19:52 | | + + + + + | Procedure Note | + + | Kalpesh Brown - 07/17/2019 2:13 AM PDT [id number] | | Page [address] [place] [address] NAME: [place], [place] | | [address] : ACCOUNT #: | | [id number]: DATE OF : 1960ORDER NUMBER: | | [id number] DATE/TIME: 05/25/2009 07:34PERFORMING PHYSICIAN: Edwardo Gonzalez | [...] mlLAESV Index (A-L): 26.03 ml/m2LAAs A2C: 14.93 [id number] A-L | | A2C: 44.50 mlLALs A2C: 4.25 cmLAAs A4C: 18.42 [id number] A-L A4C: 55.79 mlLALs | | A4C: 5.16 cmAo Diam: 3.91 cmAV Cusp: 2.23 cmLA Diam: 3.79 cmLA/Ao: 0.96%FS: | | 43.37 %EDV(Teich): 146.19 mlEF(Teich): 73.99 %ESV(Teich): 38.01 mlIVSd: 1.57 | | cmIVSs: 1.79 cmLVIDd: 5.48 cmLVIDs: 3.10 cmLVPWd: 1.32 cmLVPWs: 1.79 | | cmSV(Teich): 108.18 mlD-E Excursion: 1.89 cmE-F Crisp: 0.08 m/sHR: 43.51 BPMAV | | maxP.11 mmHgAV meanP.33 mmHgAV Vmax: 1.74 m/Zabrina Vmean: 1.06 m/Zabrina VTI: | | 35.51 cmAVA Vmax: 2.77 cm2AVA (VTI): 2.54 du1JSWY Dopp: 3.00 l/lvzn5MGPM Dopp: | | 6.33 l/minHR: 70.25 BPMLVOT maxP.78 mmHgLVOT meanP.02 mmHgLVSI Dopp: | | 42.76 ml/m2LVSV Dopp: 90.23 mlLVOT Vmax: 1.30 m/sLVOT Vmean: 0.80 m/sLVOT VTI: | | 24.35 cmMV A Bravo: 0.70 m/sMV DecT: 242.46 msMV E Bravo: 0.91 m/sMV E/A Ratio: | | 1.31MV maxP.40 mmHgMV meanP.82 mmHgMV Vmax: 0.92 m/sMV Vmean: 0.37 m/sMV | | VTI: 26.47 cmMVA (VTI): 3.40 dz2Pvhjta e': 0.08 m/sSeptal E/e': 11.24HR: | | 60.55 BPMPV maxP.04 mmHgPV meanP.39 mmHgPV Vmax: 0.87 m/sPV Vmean: 0.55 | | m/sPV VTI: 19.09 cmRAP: 5 mmHgRVSP: 21.72 mmHgTR maxP.72 mmHgTR Vmax: | | 2.04 m/sTV A Bravo: 0.33 m/sTV Dec Crisp: 1.73 m/s2TV Dec Time: 344.24 msTV E Bravo: | | 0.59 m/sTV E/A Ratio: 1.80TV maxP.40 mmHgTV meanP.44 mmHgTV Vmax: 0.59 | | m/sTV Vmean: 0.30 m/sTV VTI: 22.88 cm Instructional Aide: EMERYuthenticated by: Edwardo Tee | | Carlos [...] | |D-E Excursion: 1.89 cm | |E-F Crisp: 0.08 m/s | |HR: 43.51 BPM | [...] A Bravo: 0.33 m/s | |TV Dec Crisp: 1.73 m/s2 | |TV Dec Time: 344.24 ms | |TV E Bravo: 0.59 m/s | |TV E/A Ratio: 1.80 | |TV maxP.40 mmHg | |TV meanP.44 mmHg | |TV Vmax: 0.59 m/s | |TV Vmean: 0.30 m/s | |TV VTI: 22.88 cm | | | |Instructional Aide: KVW | |Authenticated by: Edwardo Gonzalez MD | |Report Date/Time: 05-25-2009 10:19:52 | + + CT Head wo Contrast (05/24/2009 12:58 PM PDT) + + | Specimen | + + | | + + + + + | Narrative | Performed At | + + + | [id number] | | | Page 1 RADIOLOGY | | | [facility] [address]/ | | | OPO [facility] | | | CENTER NAME: [place] [address] | | | | | | | | | DATE OF : 1960 ORDER NUMBER: | | | [id number] EXAM DATE/TIME: 05/24/2009 12:47 P ORDERING PHYSICIAN: [...] | | asymmetrically dense vessel about the modoc of Pearson. No | | | hydrocephalus. [...] 08:45 P P P | | | TSG/tp/[id number]/ cc: MD ANGELA AVENDAÑO MD | | | MD AMY HAM DO | | + + + + + | Procedure Note | + + | Kalpesh Brown Conversion - 07/17/2019 2:13 AM PDT | | [id number] Page 1 | | RADIOLOGY CDU 94192/ | | OPO | | [facility] NAME: PINA GAY | | [place] [address] | | | | DATE OF : 1960 | | | | ORDER NUMBER: [id number] | | EXAM DATE/TIME: 05/24/2009 12:47 P [...] is no asymmetrically dense vessel about the modoc of Pearson. No | | hydrocephalus. Some [...] | P | | P | | [facility]/tp/[id number]/ | | cc: VINAY HILL MD | | ANGELA MARADIAGA MD | | FEMI MARIE MD | | AMY BANEGAS DO | + + XR Chest 2 Vws (05/24/2009 11:31 AM PDT) + + | Specimen | + + | | + + + + + | Narrative | Performed At | + + + | [id number] | | | Page 1 RADIOLOGY | | | CDU 72545/ | | | [facility] | | | CENTER NAME: [place] [address] | | | | | | | | | DATE OF : 1960 ORDER NUMBER: | | | [id number] EXAM DATE/TIME: 05/24/2009 11:19 A ORDERING PHYSICIAN: [...] DT: | | | 05/24/2009 05:38 P [facility]//[id number]/ cc: VINAY HILL MD | | | MD FEMI FOSS MD AMY | | | P BASSAM, DO | | + + + + + | Procedure Note | + + | Kalpesh Brown - 07/17/2019 2:13 AM PDT | | [id number] Page 1 | | RADIOLOGY CDU 59185/ | | OPO | | [facility] NAME: P[address]AY | | [place] [address] | | | | DATE OF : 1960 | | | | ORDER NUMBER: [id number] | | EXAM DATE/TIME: 05/24/2009 11:19 A [...] | P | | P | | [facility]//[id number]/ | | cc: VINAY HILL MD | | ANGELA MARADIAGA MD | | FEMI MARIE MD | | AMY BANEGAS DO | + + documented in this encounter Visit Diagnoses + + | Diagnosis | + + | Chest pain, unspecified | + + documented in this encounter"
--- OUTSIDE RECORDS SUMMARY | ~2020-04-15 | XMS | Encounter Summary ---
Demographics + + + | Address | [address] | | | [place] [address] | + + + | Home Phone [...] Providers + +------+ + | Care Petroleum Refinery Operator Name | Role | Phone [...] | [place] | [place] | | | | | [address] | [address] | | | | | [phone] | | | +--------+ + + + [...] | | | | | | [place] [id number] | | | | | | [phone] | | | | | | | | +--------+ + + + + | 05/01/ | Procedure | Cardiology | | | | 2019 | visit | | | | +--------+ + + + + | 05/01/ | Office | Cardiology | Silvia, | | | 2019 | Visit | | PARISA Vernon [address] | | | | | | [place], | | | | | | [place] [address] | | | | | | [phone] | | | | | | | | +--------+ + + + + | 05/21/ | Implant | Cardiology | Daljit Singletary, | Remote Device | | 2019 | Monitor | | [address] [facility] | Interrogation | | | | | [place], | (Primary Dx); | | | | | [place] [address] | Pacemaker; | | | | | [phone] | Sinoatrial node | | | | | | dysfunction (HCC) | | | | | | with symptomatic | | | | | | bradycardia | +--------+ + + + + documented as of this encounter Visit Diagnoses Not on filedocumented in this encounter"
--- OUTSIDE RECORDS SUMMARY | ~2020-04-15 | XMS | Encounter Summary ---
Demographics + + + | Address | [address] | | | [place] [address] | + + + | Home Phone [...] Providers + +------+ + | Care Storage Battery Inspector And Tester Name | Role | Phone | + +------+ + | Kirk French MD | PCP | | + +------+ + Encounter Details +--------+ + + + + | Date | Type | Department | Care Team | Description | +--------+ + + + + | 08/29/ | Hospital | [facility] | [place] | DVT (deep venous | | 2015 | Encounter | MED CTR ULTRASOUND | [place] [address] | thrombosis), | | | | [address] [place] | [place], | bilateral (HCC) | | | | [place], [place] | [place] [address] | | | | | [address] | [phone] | | | | | [phone] | | | +--------+ + + + [...] + + + +---------+ + + | Rac[place]-3 Fatty | CAPS, one capsule by | [...] | | | | | | | #[id number], exp 07/2016 | | | | | [...] W | | | | | | [place], | | | | | | [place] [address] | | | | | | [phone] | | | | | | | | +--------+ + + + + | 05/01/ | Procedure | Cardiology | | | | 2019 | visit | | | | +--------+ + + + + | 05/01/ | Office | Cardiology | [place], | | | 2019 | Visit | | [place] [address] | | | | | | [place], | | | | | | [place] [address] | | | | | | [phone] | | | | | | | | +--------+ + + + + | 05/21/ | Implant | Cardiology | Daljit Singletary, | Remote Device | 2019 | Monitor | | MD [address] | Interrogation | | | | | [place], | (Primary Dx); | | | | | [place] [address] | Pacemaker; | | | | | [phone] | Sinoatrial node | | | | [...] HISTORY: DVT. COMPARISON: None. TECHNIQUE: Compression | [facility] | | sonography was performed from the groin through the popliteal fossa | [facility] | | in both [...] conveyed to the ordering provider, by the product developer, | | | immediately following the exam. [...] to the ordering provider, by the | |product developer, immediately following the exam. | | | | | |Dictated and Signed by: Emmanuel Gibbons MD | | Electronically signed: 08/29/2015 3:25 PM | + + + + + + + | Performing | Address | City/State/Zipcode | Phone Number | | Organization | | | | + + + + + | [facility] | [address] | [place] | [phone] | | [facility] | | [id number] | | | - IMAGING | | | | + + + + + documented in this encounter Visit Diagnoses + + | Diagnosis | + + | DVT (deep venous thrombosis), bilateral | + + documented in this encounter"
--- OUTSIDE RECORDS SUMMARY | ~2020-04-15 | XMS | Encounter Summary ---
Demographics + + + | Address | [address] | | | [place] [address] | + + + | Home Phone [...] Providers + +------+ + | Care School Plant Consultant Name | Role | Phone | [...] + + | 08/17/ | [facility] | Michael Amanda, | Testosterone | | 2012 | Visit | [facility] [place] | DO [address] | deficiency (Primary | | | | [address] | [place] | Dx); Hypoglycemia; | | | | [place] | [address] | Herpes | | | | [address] | | | | | | [phone] | | | +--------+---------+ + + + [...] lowering his testosterone levels. He seen at [facility]. He was prescribed OxyContin and Dilaudid. The [...] erectile dy sfunction. He was seen at [facility] yesterday and they prescribed him testostero ne cypionate injections. He's not sure when they wanted him to come back for labs. He has a followup appointment with [facility] in one month. Patient complains of history [...] HTN (hypertension); Hypercholesterolemia; Bipolar 1 disorder; Insomnia; Cras jennifer neck pain; Depression; Hyperlipidemia; BIPOLAR DISORDER [...] per orders. This note is dictated using MyFuel[employer] voice recognition software. This note was dictated [...] | | | | | | [place] [address] | | | | | | [phone] | | | | | | | [...] | | | | | | [place] [address] | | | | | | [phone] | | | | | | | | +--------+ + + + + | 05/21/ | Implant | Cardiology | Daljit Singletary, | Remote Device | | 2020 | Monitor | | [address] [facility] | Interrogation | | | | | [place], | (Primary Dx); | | | | | [place] [address] | Pacemaker; | | | | | [phone] | Sinoatrial node | | | | [...]
--- OUTSIDE RECORDS SUMMARY | ~2020-04-15 | XMS | Encounter Summary ---
Demographics + + + | Address | [address] | | | [place] [address] | + + + | Home Phone [...] Providers + +------+ + | Care Bar Roller Name | Role | Phone | + +------+ + PCP | Unavailable | + +------+ + Encounter Details +--------+ + + + + | Date | Type | Department | Care Team | Description | +--------+ + + + + | 06/17/ | Hospital | [facility] | | | | 2007 | Encounter | MED CTR EMERGENCY | | | | | | [place] [address] | | | | | | [place] | | | | | | [address] | | | | | | [phone] | | | +--------+ + + + [...] | | | | | | [place] [address] | | | | | | [phone] | | | | | | | | +--------+ + + + + | 05/01/ | Procedure | Cardiology | | | | 2019 | visit | | | | +--------+ + + + + | 05/01/ | Office | Cardiology | Silvia, | | | 2019 | Visit | | [place] [address] | | | | | | [place], | | | | | | [place] [address] | | | | | | [phone] | | | | | | | | +--------+ + + + + | 05/21/ | Implant | Cardiology | Daljit Singletary, | Remote Device | 2019 | Monitor | | [address] [place] | Interrogation | | | | | [place], | (Primary Dx); | | | | | [place] [address] | Pacemaker; | | | | | [phone] | Sinoatrial node | | | | | | dysfunction (HCC) | | | | | | with symptomatic | | | | | | bradycardia | +--------+ + + + + documented as of this encounter Visit Diagnoses Not on filedocumented in this encounter"
--- OUTSIDE RECORDS SUMMARY | ~2020-04-15 | XMS | Encounter Summary ---
Demographics + + + | Address | [address] | | | [place] [address] | + + + | Home Phone [...] Team Providers + +------+ + | Care Radioactivity Technician Name | Role | Phone | [...] | CARDIOLOGY [address] | [address] [place] | Interrogation | | | | [place], | [place], | (Primary Dx); | | | | [place] [address] | [place] [address] | Presence of | | | | [phone] | [phone] | permanent cardiac | | | | [...] | | | | | | [place] [address] | | | | | | [phone] | | | | | | | | +--------+ + + + + | 05/01/ | Procedure | Cardiology | | | | 2019 | visit | | | | +--------+ + + + + | 05/01/ | Office | Cardiology | [place], | | | 2019 | Visit | | [place] [address] | | | | | | [place], | | | | | | [place] [address] | | | | | | [phone] | | | | | | | | +--------+ + + + + | 05/21/ | Implant | Cardiology | Daljit Singletary, | Remote Device | | 2019 | Monitor | | [address] [place] | Interrogation | | | | | [place], | (Primary Dx); | | | | | [place] [address] | Pacemaker; | | | | | [phone] | Sinoatrial node | | | | [...]
--- OUTSIDE RECORDS SUMMARY | ~2020-04-15 | XMS | Encounter Summary ---
Demographics + + + | Address | [address] | | | [place] [address] | + + + | Home Phone [...] Team Providers + +------+ + | Care Ginseng Farmer Name | Role | Phone | [...] | 02/01/ | Telephone | [facility] | [place], | Other (unable to | | 2013 | | CARDIOLOGY [address] | [place] [address] | take the isosorbide) | | | | [place], | [place], | | | | | [place] [address] | [place] [address] | | | | | [phone] | [phone] | | | | | | | [...] | | | | | | [place], | | | | | | [place] [address] | | | | | | [phone] | | | | | | | | +--------+ + + + + | 05/01/ | Procedure | Cardiology | | | | 2019 | visit | | | | +--------+ + + + + | 05/01/ | Office | Cardiology | Silvia, | | | 2019 | Visit | | [place] [address] | | | | | | [place], | | | | | | [place] [address] | | | | | | [phone] | | | | | | | | +--------+ + + + + | 05/21/ | Implant | Cardiology | Daljit Singletary, | Remote Device | | 2020 | Monitor | | [place] [address] [facility] | Interrogation | | | | | [place], | (Primary Dx); | | | | | [place] [address] | Pacemaker; | | | | | [phone] | Sinoatrial node | | | | | | dysfunction (HCC) | | | | | | with symptomatic | | | | | | bradycardia | +--------+ + + + + documented as of this encounter Visit Diagnoses + + | Diagnosis | + + | Coronary artery disease - Primary Coronary atherosclerosis of unspecified type of | | vessel, levelock or graft | + + | Hypertension Unspecified essential hypertension | + + | Hyperlipidemia Other and unspecified hyperlipidemia | + + documented in this encounter"
--- OUTSIDE RECORDS SUMMARY | ~2020-04-15 | XMS | Encounter Summary ---
Demographics + + + | Address | [address] | | | [place] [address] | + + + | Home Phone [...] Providers + +------+ + | Care Flooring Salesperson Name | Role | Phone | [...] Eva [place] | | | | | [place], [place] | [address] | | | | | [address] | [place] [address] | | | | | [phone] | [phone] | | | | | | | [...] | | | | | | [place], | | | | | | [place] [address] | | | | | | [phone] | | | | | | | | +--------+ + + + + | 05/01/ | Procedure | Cardiology | | | | 2019 | visit | | | | +--------+ + + + + | 05/01/ | Office | Cardiology | Silvia, | | | 2019 | Visit | | [place] [address] | | | | | | [place], | | | | | | [place] [address] | | | | | | [phone] | | | | | | | | +--------+ + + + + | 05/21/ | Implant | Cardiology | Daljit Singletary, | Remote Device | | 2019 | Monitor | | MD [address] [facility] | Interrogation | | | | | [place], | (Primary Dx); | | | | | [place] [address] | Pacemaker; | | | | | [phone] | Sinoatrial node | | | | [...]
--- OUTSIDE RECORDS SUMMARY | ~2020-04-15 | XMS | Encounter Summary ---
Demographics + + + | Address | [address] | | | [place] [address] | + + + | Home Phone [...] Team Providers + +------+ + | Care Intraoperative Neuro Tech Name | Role | Phone | + +------+ + PCP | Unavailable | + +------+ + Encounter Details +--------+ + + + + | Date | Type | Department | Care Team | Description | +--------+ + + + + | 06/17/ | Hospital | [facility] | | | | 2008 | Encounter | MED CTR EMERGENCY | | | | | | [place] [address] | | | | | | [place] | | | | | | [address] | | | | | | [phone] | | | +--------+ + + + [...] | | | | | | [place] [address] | | | | | | [phone] | | | | | | | | +--------+ + + + + | 05/01/ | Procedure | Cardiology | | | | 2019 | visit | | | | +--------+ + + + + | 05/01/ | Office | Cardiology | Silvia, | | | 2019 | Visit | | [place] [address] | | | | | | [place], | | | | | | [place] [address] | | | | | | [phone] | | | | | | | | +--------+ + + + + | 05/21/ | Implant | Cardiology | Daljit Singletary, | Remote Device | 2019 | Monitor | | [address] [place] | Interrogation | | | | | [place], | (Primary Dx); | | | | | [place] [address] | Pacemaker; | | | | | [phone] | Sinoatrial node | | | | | | dysfunction (HCC) | | | | | | with symptomatic | | | | | | bradycardia | +--------+ + + + + documented as of this encounter Visit Diagnoses Not on filedocumented in this encounter"
--- OUTSIDE RECORDS SUMMARY | ~2020-04-15 | XMS | Encounter Summary ---
Demographics + + + | Address | [address] | | | [place] [address] | + + + | Home Phone [...] Providers + +------+ + | Care Global Compensation Manager Name | Role | Phone | [...] + | 09/01/ | Telephone | [facility] | [place], | Appointment | | 2016 | | CARDIOLOGY [address] | [place] [address] | (Reschedule) | | | | [place], | [place], | | | | | [place] [address] | [place] [address] | | | | | [phone] | [phone] | | | | | | | [...] | | | | | [place], | | | | | | [place] [address] | | | | | | [phone] | | | | | | | | +--------+ + + + + | 05/01/ | Procedure | Cardiology | | | | 2019 | visit | | | | +--------+ + + + + | 05/01/ | Office | Cardiology | Silvia, | | | 2019 | Visit | | [place] [address] | | | | | | [place], | | | | | | [place] [address] | | | | | | [phone] | | | | | | | | +--------+ + + + + | 05/21/ | Implant | Cardiology | Daljit Singletary, | Remote Device | | 2019 | Monitor | | [address] [facility] | Interrogation | | | | | [place], | (Primary Dx); | | | | | [place] [address] | Pacemaker; | | | | | [phone] | Sinoatrial node | | | | | | dysfunction (HCC) | | | | | | with symptomatic | | | | | | bradycardia | +--------+ + + + + documented as of this encounter Visit Diagnoses Not on filedocumented in this encounter"
--- OUTSIDE RECORDS SUMMARY | ~2020-04-15 | XMS | Encounter Summary ---
Demographics + + + | Address | [address] | | | [place] [address] | + + + | Home Phone [...] Providers + +------+ + | Care Rehabilitation Technician Name | Role | Phone | + +------+ + PCP | Unavailable | + +------+ + Encounter Details +--------+ + + + + | Date | Type | Department | Care Team | Description | +--------+ + + + + | 05/13/ | [facility] | [facility] | Dom Graham, | | | 2010 | Encounter | MED CTR EMERGENCY | [address] | | | | | CENTER [address] [place] | [place] | | | | | [place] | [address] | | | | | [address] | | | | | | [phone] | | | +--------+ + + + [...] | | | | | | [place], | | | | | | [place] [address] | | | | | | [phone] | | | | | | | | +--------+ + + + + | 05/01/ | Procedure | Cardiology | | | | 2019 | visit | | | | +--------+ + + + + | 05/01/ | Office | Cardiology | [place] | | | 2019 | Visit | | [place] [address] | | | | | | [place], | | | | | | [place] [address] | | | | | | [phone] | | | | | | | | +--------+ + + + + | 05/21/ | Implant | Cardiology | Daljit Singletary, | Remote Device | 2019 | Monitor | | [address] [place] | Interrogation | | | | | [place], | (Primary Dx); | | | | | [place] [address] | Pacemaker; | | | | | [phone] | Sinoatrial node | | | | [...] | | | | | the [employer] [address] | | | | | | Access Analyzer. | | | | + + + + + + + + | Specimen | + + | | + + + + + + + | Performing | Address | City/State/Zipcode | Phone Number | | Organization | | | | + + + + + | [facility] | [address] | [place] | [phone] | | [facility] | | [id number] | | | - LABORATORY | | | | + + + + + | [facility] | [address] | [place] | | | [facility] | | [id number], [facility] | | | - LABORATORY [...] [address] | [place] | [phone] | | [facility] | | [id number] | | | - LABORATORY | | | | + + + + + | [facility] | [address] | [place] | | | [facility] | | [id number] [...] | [facility] | [address] | [place] | [phone] | | [facility] | | [id number] | | | - LABORATORY | | | | + + + + + | [facility] | [address] | [place] | | | [facility] | | [id number] | | [...] | [facility] | [address] | [place], [place] | [phone] | | [facility] | | [id number] | | | - LABORATORY | | | | + + + + + | [facility] | [address] | [place], [place] | | | [facility] | | [id number] | | | - LABORATORY | | | | + + + + + XR Chest AP Portable (05/13/2011 3:01 PM PDT) + + | Specimen | + + | | + + + + + | Narrative | Performed At | + + + | [facility] Diagnostic [facility] | [facility] | | [address] [facility] | [facility] | | PORTABLE CHEST CLINICAL | [...] Transcribed Date/Time: | | | 05/13/2011 17:06 Sales Appointment Coordinator: <Electronically Signed | | | by Jama Solis MD> 05/13/112038 | | + + + + + | Procedure Note | + + | Kevin, Rad Conversion - 12/29/2013 3:12 PM [facility] | | Diagnostic Imaging Department [address] [place] [address] | | PORTABLE CHEST CLINICAL HISTORY: TACHYCARDIA. [...] 16:57 | |Transcribed Date/Time: 05/13/2011 17:06 | |Sales Appointment Coordinator: | |<Electronically Signed by Jama Solis [...]
--- OUTSIDE RECORDS SUMMARY | ~2020-04-15 | XMS | Encounter Summary ---
Demographics + + + | Address | [address] | | | [place] [address] | + + + | Home Phone [...] Providers + +------+ + | Care Candy Separator Enrobing Name | Role | Phone | + [...] + | 06/23/ | Office | [facility] | [place]via, | Ascending thoracic | | 2016 | Visit | CARDIOLOGY [address] | [place] [address] | aortic aneurysm | | | | [place], | [place], | ([facility]) (Primary Dx); | | | | [place] [address] | [place] [address] | Coronary artery | | | | [phone] | [phone] | disease involving | | | | | | modoc coronary | | | | | | [...] in office in 6 months. [email or web address], Janeen, HIGH REACH OPERATOR - 06/23/2016 12:45 PM PDT PATIENT NAME: Moe Sanchez : 1960: AGE: 56 y.o. PRIMARY CARE: Kirk French MD OUTPATIENT FOLLOW UP VISIT Date of Service: 06/23/2016 HISTORY OF PRESENT ILLNESS: Moe Sanchez is a 56 y.o. 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 Non-critical Coronary artery disease involving [place] coronary artery of modoc heart [facility] angina pectoris: A. Normal exercise sestamibi [...] pain. He is in class I-II of [place] Heart Associ[employer] n functional class. There are [...] ventricular arrhythmia performed by Dr. Gambino at [facility] on 01/30/2013. Patient had [...] go back in 3 days to [place] for an attempt of ablation under general [...] this chart may have been created with ZEALER voice recognition software. Occasi onal wrong-word or [...] W | | | | | | [place], | | | | | | [place] [address] | | | | | | [phone] | | | | | | | | +--------+ + + + + | 05/01/ | Procedure | Cardiology | | | | 2019 | visit | | | | +--------+ + + + + | 05/01/ | Office | Cardiology | Silvia, | | | 2019 | Visit | | [place] W | | | | | | [place], | | | | | | [place] [address] | | | | | | [phone] | | | | | | | | +--------+ + + + + | 05/21/ | Implant | Cardiology | SunshinecherelleSydni, | Remote Device | | 2019 | Monitor | | [facility] | Interrogation | | | | | [place], | (Primary Dx); | | | | | [place] [address] | Pacemaker; | | | | | [phone] | Sinoatrial node | | | | [...] the | | | | PDT | modoc coronary | results section. | | | [...] MD | | | | | | ([id number]) on 06/23/2016 | | | | | [...] modoc heart without | | angina pectoris | [...]
--- OUTSIDE RECORDS SUMMARY | ~2020-04-15 | XMS | Encounter Summary ---
Demographics + + + | Address | [address] | | | [place] [address] | + + + | Home Phone [...] + +------+ + | Care Sales Representative Girls' Apparel Name | Role | Phone | [...] + + | 08/30/ | Refill | [facility] | Kirk French | Medication Refill | | 2019 | | [facility] | MD Brea [address] | | | | | [facility] | | | | | [address] | [place] [address] | | | | | [place], [place] | [phone] | | | | | [address] | | | | | | [phone] | | | +--------+--------+ + + + [...] | | | | | | [place] [address] | | | | | | [phone] | | | | | | | [...] | | | | | | [place] [address] | | | | | | [phone] | | | | | | | | +--------+ + + + + | 05/21/ | Implant | Cardiology | Daljit Singletary, | Remote Device | | 2019 | Monitor | | [facility] | Interrogation | | | | | [place], | (Primary Dx); | | | | | [place] [address] | Pacemaker; | | | | | [phone] | Sinoatrial node | | | | | | dysfunction (HCC) | | | | | | with symptomatic | | | | | | bradycardia | +--------+ + + + + documented as of this encounter Visit Diagnoses Not on filedocumented in this encounter"
--- OUTSIDE RECORDS SUMMARY | ~2020-04-15 | XMS | Encounter Summary ---
Demographics + + + | Address | [address] | | | [place] [address] | + + + | Home Phone [...] Team Providers + +------+ + | Care Mascara Molder Name | Role | Phone | [...] | | | | | [address] | | | | | | [place], [place] | | | | | | [address] | | | | | | [phone] | | | +--------+ + + + [...] | | | | | | [place] [address] | | | | | | [phone] | | | | | | | | +--------+ + + + + | 05/01/ | Procedure | Cardiology | | | | 2019 | visit | | | | +--------+ + + + + | 05/01/ | Office | Cardiology | [place], | | | 2019 | Visit | | [place] [address] | | | | | | [place], | | | | | | [place] [address] | | | | | | [phone] | | | | | | | | +--------+ + + + + | 05/21/ | Implant | Cardiology | Daljit Singletary, | Remote Device | 2019 | Monitor | | MD [address] [place] [place] | Interrogation | | | | | [place], | (Primary Dx); | | | | | [place] [address] | Pacemaker; | | | | | [phone] | Sinoatrial node | | | | [...]
--- OUTSIDE RECORDS SUMMARY | ~2020-04-15 | XMS | Clinical Summary ---
Demographics + + + | Address | [address] | | | [place] [address] | + + + | Home Phone [...] Providers + +------+ + | Care Senior Licensing Manager Name | Role | Phone | [...] | | | + + +--------+---+------+------+-------+ | [place]-3 Fatty | CAPS, one capsule by | [...] | | | | | [place] coronary | | | | | | | | artery of [place] | | | | | | | [...] automatically from request for surgery | | [id number] | + + + + + | Diarrhea, unspecified type | 01/15/2020 | + + + + + | Overview: Added automatically from request for surgery | | [id number] | + + + + + | Unintentional weight loss | 01/15/2020 | + + + + + | Overview: Added automatically from request for surgery | | [id number] | + + + + + | Opioid type dependence, continuous | 01/15/2020 | + + + + + | Overview: Added automatically from request for surgery | | [id number] | + + + + + | Allergy to opioid analgesic | 01/15/2020 | + + + + + | Overview: Added automatically from request for surgery | | [id number] | + + + + + | [...] Overview: Lower back injury (From [facility]) 1980 1984 | + + + [...] | Coronary artery disease involving [place] coronary artery of | 12/21/2013 | | [place] heart without angina pectoris | | + [...] cannot | | completely be ruled out.[facility] 12/25/13, shows non critical coronary | [...] back in 3 days to | | [place] for an attempt of ablation under [...] IMPLANTED GENERATOR | | Medtronic DDD ADDR01 [id number] 06/14/09 RV LEAD Medtronic Active | | Bipolar CapSureFix 4076 [id number] 06/14/09 A LEAD Medtronic | | Active Bipolar CapSurFix 4076 [id number] 06/14/09 | + + + +---+ | [...] | Heart Cath, 02/29/2012, LVEF is 65%, [facility], Daljit Gemini, | | [facility] Medicine Myocardial Gated Stress Test, 05/25/2009, EF 53 | | % during rest and 52% during stress. [facility], | | [place], [place].Persantine Sestamibi Stress Test, 06/14/2008, LVEF is | | 60%, [facility], Daljit MorenowanL 12/25/13, shows noncritical [...] Nonobstructive CAD noted | | on [facility] from 2013, no EKG changes, and [...] + + | Mother | | | [place] | | | | (Age | | [...] W | | | | | | [place], | | | | | | [place] [address] | | | | | | [phone] | | | | | | | | +--------+ + + + + | 05/01/ | Procedure | Cardiology | | | | 2019 | visit | | | | +--------+ + + + + | 05/01/ | Office | Cardiology | [place]via, | | | 2019 | Visit | | [place] W | | | | | | [place], | | | | | | [place] [address] | | | | | | [phone] | | | | | | | | +--------+ + + + + | 05/21/ | Implant | Cardiology | Daljit Singletary, | Remote Device | 2019 | Monitor | | MD Sim [place] | Interrogation | | | | | [place], | (Primary Dx); | | | | | [place] [address] | Pacemaker; | | | | | [phone] | Sinoatrial node | | | | [...] Left: | COOK | | 09/27/ | [id number] | | 32 - [id number]: | | Ureter | [employer] | | 2020 | / | | Qty: 1 on 04/13/2019 by | | | - [place] | | | /[id number] | | Matthew Uriarte MD at | | | | | | 56 | | [facility] | | | | | | | [facility] | | | | | [...] +--------+ +---------+--------+ | MEDICARE | MEDICA | [id number] | 01/21/20 | [phone] | | Medica | | | RE | | 01-Pre | 5 | | re | | | PART A | | sent | | | | | | AND B | | | | | | + +--------+ +--------+ +---------+--------+ | MEDICARE | MEDICA | [id number] | 01/21/20 | [phone] | | Medica | | | RE | | 01-Pre | 5 | | re | | | PART A | | sent | | | | | | AND B | | | | | | + +--------+ +--------+ +---------+--------+ | AARP | AARP | [id number] | | [phone] | | Indemn | | | MDCR | | 016-Pr | 0 | | ity | | | SUPPL | | esent | | | | + +--------+ +--------+ +---------+--------+ | AARP | AARP | [id number] | 11/22/19 | [phone] | | Indemn [...] Person | Self | [birth year] | [address] | | Kirk | cristo/Per | | 1959 | [phone] | [place] | | | [place] | | | 8 (Home) | [address] | + +--------+ +--------+ + + | Moe Sanchez | Person | Self | [birth year] | | [address] | | Kirk | al/Fam | | 1959 | [phone] | Dr [place] | | | [place] | | | 8 (Home) | [address] | + +--------+ +--------+ + + | Moe Sanchez | Third | Self | [birth year] | | [address] | | Kirk | Libertarian | | 1960 | [phone] | [address] [place] | | | [place] | | | 3 ([place]) | [address] | | | ity | | | | | + +--------+ +--------+ + + Advance Directives + + + + + | Type | Date Recorded | Patient | Explanation | | | | Tub Puller | | + + + + + | Power of | | | | | Charge Rn | | | | + + [...]
--- OUTSIDE RECORDS SUMMARY | ~2020-04-15 | XMS | Encounter Summary ---
Demographics + + + | Address | [address] | | | [place] [address] | + + + | Home Phone [...] Providers + +------+ + | Care It Infrastructure Project Manager Name | Role | Phone | + +------+ + PCP | Unavailable | + +------+ + Encounter Details +--------+ + + + + | Date | Type | Department | Care Team | Description | +--------+ + + + + | 05/02/ | [facility] | [facility] | Jonathan, | | | 2009 | Encounter | MED CTR EMERGENCY | Martell Cr MD [address] | | | | | CENTER [address] | [place] | | | | | [place] | [place] [address] | | | | | [address] | [phone] | | | | | [phone] | | | +--------+ + + + [...] W | | | | | | [place], | | | | | | [place] [address] | | | | | | [phone] | | | | | | | | +--------+ + + + + | 05/01/ | Procedure | Cardiology | | | | 2019 | visit | | | | +--------+ + + + + | 05/01/ | Office | Cardiology | [place]via | | | 2019 | Visit | | [place] [address] | | | | | | [place], | | | | | | [place] [address] | | | | | | [phone] | | | | | | | | +--------+ + + + + | 05/21/ | Implant | Cardiology | Daljit Singletary, | Remote Device | 2019 | Monitor | | MD Sim [place] | Interrogation | | | | | [place], | (Primary Dx); | | | | | [place] [address] | Pacemaker; | | | | | [phone] | Sinoatrial node | | | | | | dysfunction (HCC) | | | | | | with symptomatic | | | | | | bradycardia | +--------+ + + + + documented as of this encounter Visit Diagnoses Not on filedocumented in this encounter"
--- OUTSIDE RECORDS SUMMARY | ~2020-04-15 | XMS | Encounter Summary ---
Demographics + + + | Address | [address] | | | [place] [address] | + + + | Home Phone [...] + +------+ + | Care Public Relations Account Executive Name | Role | Phone | + +------+ + | Kirk French MD | PCP | | + +------+ + Encounter Details +--------+ + + + + | Date | Type | Department | Care Team | Description | +--------+ + + + + | 01/25/ | Emergency | [facility] | Donald Callahan, | Strain of lumbar | | 2016 | | MEDICAL CENTER | Russ, DO [address] | paraspinal muscle, | | | | EMERGENCY CENTER | [address] | initial encounter; | | | | [address] | [place], [place] | Left hip pain | | | | [place], [place] | [address] | | | | | [address] | | | | | | [phone] | | | +--------+ + + + [...] + + +---------+ + + | [place]-3 Fatty | CAPS, one capsule by | [...] | | | | | | [place] [address] | | | | | | [phone] | | | | | | | | +--------+ + + + + | 05/01/ | Procedure | Cardiology | | | | 2019 | visit | | | | +--------+ + + + + | 05/01/ | Office | Cardiology | Silvia, | | | 2019 | Visit | | PARISA [place] [address] | | | | | | [place], | | | | | | [place] [address] | | | | | | [phone] | | | | | | | | +--------+ + + + + | 05/21/ | Implant | Cardiology | Daljit Singletary, | Remote Device | | 2019 | Monitor | | [address] | Interrogation | | | | | [place], | (Primary Dx); | | | | | [place] [address] | Pacemaker; | | | | | [phone] | Sinoatrial node | | | | [...] Conversion - 07/06/2019 12:12 AM PDT PINA [id number] years MaleXR | | LUMBAR SPINE LIMITED [...]
--- OUTSIDE RECORDS SUMMARY | ~2020-04-15 | XMS | Encounter Summary ---
Demographics + + + | Address | [address] | | | [place] [address] | + + + | Home Phone [...] Providers + +------+ + | Care Mill Oiler Name | Role | Phone | [...] + + | 09/09/ | Office | [facility] | Michael Amanda, | Hyperlipidemia; | | 2011 | Visit | [facility] | DO [address] | Hypertension; | | | | [address] | [place] | Chronic pain | | | | [place] | [address] | syndrome; Neck pain, | | | | [address] | | chronic | | | | [phone] | | | +--------+---------+ + + + [...] damage history No ASHD (either angina; prior CA; prior CABG) No cardiac end organ damage [...] slowly cutting back. Pt was going through [facility] for opiate medications prior to [...] | | | | | | [place] [address] | | | | | | [phone] | | | | | | | [...] | | | | | | [place] [address] | | | | | | [phone] | | | | | | | | +--------+ + + + + | 05/21/ | Implant | Cardiology | Daljit Singletary, | Remote Device | 2019 | Monitor | | [address] [place] | Interrogation | | | | | [place], | (Primary Dx); | | | | | [place] [address] | Pacemaker; | | | | | [phone] | Sinoatrial node | | | | [...]
--- OUTSIDE RECORDS SUMMARY | ~2020-04-15 | XMS | Encounter Summary ---
Demographics + + + | Address | [address] | | | [place] [address] | + + + | Home Phone [...] Providers + +------+ + | Care Client Support Consultant Name | Role | Phone | + +------+ + | Kirk French MD | PCP | | + +------+ + Encounter Details +--------+ + + + + | Date | Type | Department | Care Team | Description | +--------+ + + + + | 08/10/ | Orders Only | [facility] | [place], | Mixed hyperlipidemia | | 2016 | | [facility] | [place] [address] | (Primary Dx) | | | | [address] [place] | [place], | | | | | [place] | [place] [address] | | | | | [address] | [phone] | | | | | [phone] | | | +--------+ + + + [...] W | | | | | | [place], | | | | | | [place] [address] | | | | | | [phone] | | | | | | | | +--------+ + + + + | 05/01/ | Procedure | Cardiology | | | | 2019 | visit | | | | +--------+ + + + + | 05/01/ | Office | Cardiology | [place], | | | 2019 | Visit | | [place] [address] | | | | | | [place], | | | | | | [place] [address] | | | | | | [phone] | | | | | | | | +--------+ + + + + | 05/21/ | Implant | Cardiology | Daljit Singletary, | Remote Device | | 2020 | Monitor | | [address] [facility] | Interrogation | | | | | [place], | (Primary Dx); | | | | | [place] [address] | Pacemaker; | | | | | [phone] | Sinoatrial node | | | | [...]
--- OUTSIDE RECORDS SUMMARY | ~2020-04-15 | XMS | Encounter Summary ---
Demographics + + + | Address | [address] | | | [place] [address] | + + + | Home Phone [...] Providers + +------+ + | Care Manager Biostatistics Name | Role | Phone | [...] + + | 12/14/ | Telephone | [facility] | Emmanuel Daniel MD | Follow-up, Office | | 2019 | | GASTROENTEROLOGY | [address] [place], [place] | Visit (wants to | | | | [address] [place] | [address] [place] | cancel his office | | | | [address] [place] | [address] | appointment today) | | | | [address] | | | | | | [phone] | | | +--------+ + + + [...] | | | | | | [place] [address] | | | | | | [phone] | | | | | | | [...] | | | | | | [place] [address] | | | | | | [phone] | | | | | | | | +--------+ + + + + | 05/21/ | Implant | Cardiology | Daljit Singletary, | Remote Device | | 2019 | Monitor | | [address] [place] | Interrogation | | | | | [place], | (Primary Dx); | | | | | [place] [address] | Pacemaker; | | | | | [phone] | Sinoatrial node | | | | | | dysfunction (HCC) | | | | | | with symptomatic | | | | | | bradycardia | +--------+ + + + + documented as of this encounter Visit Diagnoses Not on filedocumented in this encounter"
--- OUTSIDE RECORDS SUMMARY | ~2020-04-15 | XMS | Encounter Summary ---
Demographics + + + | Address | [address] | | | [place] [address] | + + + | Home Phone [...] Providers + +------+ + | Care Certified Massage Therapist Name | Role | Phone [...] | Aneurysmal | [place], | [address] [place] | | | | | dilatation | PARISA Solis | [place], | | | | | (HCC) | [address] | [place] | | | | | Procedures | [place] | [address] | | | | | ECHO | [place], | Phone: | | | | | Complete | [place] | [phone] | | | | | | [address] | Fax: | | | | | | Phone: | [phone] | | | | | | [phone] | | | | | | | Fax: | | | | | | | [phone] | | +--------+--------+ + + + + Encounter Details +--------+ + + + + | Date | Type | Department | Care Team | Description | +--------+ + + + + | 11/16/ | Orders Only | [facility] [place] | [place], | Aneurysmal | | 2017 | | CARDIOLOGY [address] | [place] [address] | dilatation (HCC) | | | | [place], | [place], | (Primary Dx) | | | | [place] [address] | [place] [address] | | | | | [phone] | [phone] | | | | | | | [...] | | | | | | [place], | | | | | | [place] [address] | | | | | | [phone] | | | | | | | | +--------+ + + + + | 05/01/ | Procedure | Cardiology | | | | 2019 | visit | | | | +--------+ + + + + | 05/01/ | Office | Cardiology | [place], | | | 2019 | Visit | | PARISA Solis [address] | | | | | | [place], | | | | | | [place] [address] | | | | | | [phone] | | | | | | | | +--------+ + + + + | 05/21/ | Implant | Cardiology | Daljit Singletary, | Remote Device | | 2019 | Monitor | | [address] [place] | Interrogation | | | | | [place], | (Primary Dx); | | | | | [place] [address] | Pacemaker; | | | | | [phone] | Sinoatrial node | | | | [...] Patient Name VICTOR HUGO | | | [place] Room Number KIRK Patient | | | [id number] Date of Study 11/16/2017 Number | | | Visit Number [id number] | | | Referring Physician GURJIT TROY Number | | | NORMA SOLIS Date | | | of 1960 Bond Writer ROMAINE | | | MARISSA TIPTON Age 57 year(s) Interpreting | | | GURJIT TROY | | | Plater Apprentice DALJIT SINGLETARY, | | | MD | | | Gender Male Nurse | | | Stress Control Valve Mechanic Procedure Type of | | | [...] | | | EF | | | Qwhydptjs26% Left Ventricle Diastolic Dimension: 5.12 cm | [...] Volume: 46.33 ml | | | EF Yhcjwwiws58% | | | | | | Left [...] Results In - 11/16/2017 1:48 PM [facility] Transthoracic Echocardiography Report | | (TTE) Demographics Patient Name VICTOR HUGO BARRY Room Number KIRK | | Patient [id number] Date of Study 11/16/2017 Number Visit Number | | [id number] Referring Physician GURJIT TROY | | Number NORMA SOLIS Date of | | 1960 Bond Writer ROMAINE TIPTON RDCS Age 57 year(s) | | Interpreting GURJIT TROY Plater Apprentice | | DALJIT SINGLETARY MD | | [...] [place] Volume: 46.33 ml | | EF Qehvuklmw38% Left Ventricle Diastolic Dimension: 5.12 cm Systolic [...] [place] Volume: 46.33 ml | | EF Mnmdtlmxz26% | | | | Left Ventricle | [...]
--- OUTSIDE RECORDS SUMMARY | ~2020-04-15 | XMS | Encounter Summary ---
Demographics + + + | Address | [address] | | | [place] [address] | + + + | Home Phone [...] Providers + +------+ + | Care Yarn Bleaching Machine Operator Name | Role | Phone | + +------+ + PCP | Unavailable | + +------+ + Encounter Details +--------+ + + + + | Date | Type | Department | Care Team | Description | +--------+ + + + + | 07/20/ | [facility] | [facility] | Hunter Antunez, | | | 2009 - | Encounter | MED CTR MED ONC | [address] | | | | | [address] | [place] | | | 07/24/ | | [place] [address] | [address] | | | 2009 | | [phone] | | | +--------+ + + + [...] W | | | | | | [place], | | | | | | [place] [address] | | | | | | [phone] | | | | | | | | +--------+ + + + + | 05/01/ | Procedure | Cardiology | | | | 2019 | visit | | | | +--------+ + + + + | 05/01/ | Office | Cardiology | [place] | | | 2019 | Visit | | PAR[place] [address] | | | | | | [place], | | | | | | [place] [address] | | | | | | [phone] | | | | | | | | +--------+ + + + + | 05/21/ | Implant | Cardiology | Daljit Singletary, | Remote Device | 2019 | Monitor | | MD [place] | Interrogation | | | | | [place], | (Primary Dx); | | | | | [place] [address] | Pacemaker; | | | | | [phone] | Sinoatrial node | | | | | | dysfunction (HCC) | | | | | | with symptomatic | | | | | | bradycardia | +--------+ + + + + documented as of this encounter Visit Diagnoses Not on filedocumented in this encounter"
--- OUTSIDE RECORDS SUMMARY | ~2020-04-15 | XMS | Encounter Summary ---
Demographics + + + | Address | [address] | | | [place] [address] | + + + | Home Phone [...] Team Providers + +------+ + | Care Barbering Teacher Name | Role | Phone | + +------+ + | Michael Amanda DO | PCP | | + +------+ + Encounter Details +--------+ + + + + | Date | Type | Department | Care Team | Description | +--------+ + + + + | 05/11/ | Hospital | [facility] | Conversion | Lumbago; | | 2013 | Encounter | [facility]ICAL [facility]ENTER | Transaction, | Postlaminectomy | | | | CLINICAL DECISION | Provider Unknown | syndrome, cervical | | | | [address] | | region; Cervicalgia | | | | [place], [place] | (Fax) | | | | | [address] | Cesar, | | | | | [phone] | MD Gamaliel | | +--------+ + [...] + + + +---------+ + + | Monte[place]uma-3 Fatty | CAPS, one capsule by | [...] Date of Service: 05/11/14 150 Status: Signed Pin Feather Machine Operator: Meliza Macario RN (Registered Nurse) Pt discharged [...] Date of Service: 05/11/14 142 Status: Signed Pin Feather Machine Operator: Heike Mckeon RN (Registered Nurse) Called doctor [...] | | | | | | [place] [address] | | | | | | [phone] | | | | | | | | +--------+ + + + + | 05/01/ | Procedure | Cardiology | | | | 2019 | visit | | | | +--------+ + + + + | 05/01/ | Office | Cardiology | [place], | | | 2019 | Visit | | PARISA [address] | | | | | | [place], | | | | | | [place] [address] | | | | | | [phone] | | | | | | | | +--------+ + + + + | 05/21/ | Implant | Cardiology | Daljit Singletary, | Remote Device | | 2019 | Monitor | | [facility] | Interrogation | | | | | [place], | (Primary Dx); | | | | | [place] [address] | Pacemaker; | | | | | [phone] | Sinoatrial node | | | | [...] | | | intrathecal use. See the web editor examination for details of the | | | injection. Bone algorithm noncontrast technique with reformatted | | | sagittal and coronal images. Prior study for review : CT discogram | | | from 2004 was used to orient this examination given the transitional | | | anatomy of the lumbosacral junction FINDINGS: Party Planner is notable | | | for a [...] for intrathecal use. See | | the web editor examination for details of the injection. Bone algorithm noncontrast | | technique with reformatted sagittal and coronal images. Prior study for review : CT | | discogram from 2004 was used to orient this examination given the transitional anatomy | | of the lumbosacral junction FINDINGS: Party Planner is notable for a pacing system. Anterior [...]
--- OUTSIDE RECORDS SUMMARY | ~2020-04-15 | XMS | Encounter Summary ---
Demographics + + + | Address | [address] | | | [place] [address] | + + + | Home Phone [...] Providers + +------+ + | Care Blow Pit Operator Name | Role | Phone | + +------+ + | Michael Amanda DO | PCP | | + +------+ + Encounter Details +--------+ + + + + | Date | Type | Department | Care Team | Description | +--------+ + + + + | 07/25/ | Abstract | [facility] [place] [facility] | Michael Amanda, | | | 2013 | | [facility] | DO [address] | | | | | [address] | [place] | | | | | [place] | [address] | | | | | [address] | | | | | | [phone] | | | +--------+ + + + [...] | | | | | | [place] [address] | | | | | | [phone] | | | | | | | | +--------+ + + + + | 05/01/ | Procedure | Cardiology | | | | 2019 | visit | | | | +--------+ + + + + | 05/01/ | Office | Cardiology | [place], | | | 2019 | Visit | | PARISA [place] [address] | | | | | | [place], | | | | | | [place] [address] | | | | | | [phone] | | | | | | | | +--------+ + + + + | 05/21/ | Implant | Cardiology | Daljit Singletary, | Remote Device | | 2019 | Monitor | | [address] [place] | Interrogation | | | | | [place], | (Primary Dx); | | | | | [place] [address] | Pacemaker; | | | | | [phone] | Sinoatrial node | | | | | | dysfunction (HCC) | | | | | | with symptomatic | | | | | | bradycardia | +--------+ + + + + documented as of this encounter Visit Diagnoses Not on filedocumented in this encounter"
--- OUTSIDE RECORDS SUMMARY | ~2020-04-15 | XMS | Encounter Summary ---
Demographics + + + | Address | [address] | | | [place] [address] | + + + | Home Phone [...] Providers + +------+ + | Care Heel Pricker Name | Role | Phone | + [...] 2018 | | GASTROENTEROLOGY | [address] [place], [place] | about prep for | | | | [address] [place] | [address] [place], [place] | procedure) | | | | [address] [place], [place] | [address] | | | | | [address] | | | | | | [phone] | | | +--------+ + + + [...] | | | | | | [place] [address] | | | | | | [phone] | | | | | | | [...] | | | | | | [place] [address] | | | | | | [phone] | | | | | | | | +--------+ + + + + | 05/21/ | Implant | Cardiology | Daljit Singletary, | Remote Device | 2019 | Monitor | | [address] | Interrogation | | | | | [place], | (Primary Dx); | | | | | [place] [address] | Pacemaker; | | | | | [phone] | Sinoatrial node | | | | | | dysfunction (HCC) | | | | | | with symptomatic | | | | | | bradycardia | +--------+ + + + + documented as of this encounter Visit Diagnoses Not on filedocumented in this encounter"
--- OUTSIDE RECORDS SUMMARY | ~2020-04-15 | XMS | Encounter Summary ---
Demographics + + + | Address | [address] | | | [place] [address] | + + + | Home Phone [...] Team Providers + +------+ + | Care Skilled Nursing Case Manager Name | Role | Phone | + +------+ + PCP | Unavailable | + +------+ + Encounter Details +--------+ + + + + | Date | Type | Department | Care Team | Description | +--------+ + + + + | 04/23/ | Hospital | [facility] | | | | 2007 - | Encounter | MED CTR MED ONC | | | | | | [address] | | | | 04/24/ | | [place] [address] | | | | 2007 | | [phone] | | | +--------+ + + + [...] | | | | | | [place] [address] | | | | | | [phone] | | | | | | | [...] | | | | | | [place] [address] | | | | | | [phone] | | | | | | | | +--------+ + + + + | 05/21/ | Implant | Cardiology | Daljit Singletary, | Remote Device | 2019 | Monitor | | [address] [place] | Interrogation | | | | | [place], | (Primary Dx); | | | | | [place] [address] | Pacemaker; | | | | | [phone] | Sinoatrial node | | | | | | dysfunction (HCC) | | | | | | with symptomatic | | | | | | bradycardia | +--------+ + + + + documented as of this encounter Visit Diagnoses Not on filedocumented in this encounter"
--- OUTSIDE RECORDS SUMMARY | ~2020-04-15 | XMS | Encounter Summary ---
Demographics + + + | Address | [address] | | | [place] [address] | + + + | Home Phone [...] Providers + +------+ + | Care Rotary Peel Oven Tender Name | Role | Phone [...] + | 10/04/ | Telephone | [facility] | Daljit Singletary, | Other (Records sent) | | 2012 | | CARDIOLOGY [address] | MD [address] [place] | | | | | [place], | [place], | | | | | [place] [address] | [place] [address] | | | | | [phone] | [phone] | | | | | | | [...] W | | | | | | [place], | | | | | | [place] [address] | | | | | | [phone] | | | | | | | | +--------+ + + + + | 05/01/ | Procedure | Cardiology | | | | 2019 | visit | | | | +--------+ + + + + | 05/01/ | Office | Cardiology | Silvia, | | | 2019 | Visit | | [address] | | | | | | [place], | | | | | | [place] [address] | | | | | | [phone] | | | | | | | | +--------+ + + + + | 05/21/ | Implant | Cardiology | Daljit Singletary, | Remote Device | | 2019 | Monitor | | [address] | Interrogation | | | | | [place], | (Primary Dx); | | | | | [place] [address] | Pacemaker; | | | | | [phone] | Sinoatrial node | | | | | | dysfunction (HCC) | | | | | | with symptomatic | | | | | | bradycardia | +--------+ + + + + documented as of this encounter Visit Diagnoses Not on filedocumented in this encounter"
--- OUTSIDE RECORDS SUMMARY | ~2020-04-15 | XMS | Encounter Summary ---
Demographics + + + | Address | [address] | | | [place] [address] | + + + | Home Phone [...] Providers + +------+ + | Care Return Checker Name | Role | Phone | + +------+ + PCP | Unavailable | + +------+ + Encounter Details +--------+ + + + + | Date | Type | Department | Care Team | Description | +--------+ + + + + | 09/13/ | [facility] | [facility] | Jonathan, | | | 2009 | Encounter | MED CTR EMERGENCY | Martell Cr MD [address] | | | | | CENTER [address] | [place] | | | | | [place] | [place] [address] | | | | | [address] | [phone] | | | | | [phone] | | | +--------+ + + + [...] | | | | | | [place] [address] | | | | | | [phone] | | | | | | | [...] | | | | | | [place] [address] | | | | | | [phone] | | | | | | | | +--------+ + + + + | 05/21/ | Implant | Cardiology | Daljit Singletary, | Remote Device | 2019 | Monitor | | MD [address] [place] | Interrogation | | | | | [place], | (Primary Dx); | | | | | [place] [address] | Pacemaker; | | | | | [phone] | Sinoatrial node | | | | | | dysfunction (HCC) | | | | | | with symptomatic | | | | | | bradycardia | +--------+ + + + + documented as of this encounter Visit Diagnoses Not on filedocumented in this encounter"
--- OUTSIDE RECORDS SUMMARY | ~2020-04-15 | XMS | Encounter Summary ---
Demographics + + + | Address | [address] | | | [place] [address] | + + + | Home Phone [...] + | 10/01/ | Office | [facility] | Mary Bradshaw | Injury of left foot, | | 2013 | Visit | CARE [address] | Guy Larkin MD | initial encounter | | | | [place] | [address] | (Primary Dx) | | | | [address] | [place] | | | | | [phone] | [address] | | | | | | | [...] half hours. 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 I provided patient with Dr. Bradley's card so he may contact us for results. Patient's best phone number: [phone] Renetta Lockwood RN ary Bradshaw MD - [...] | | | | | | [place] [address] | | | | | | [phone] | | | | | | | | +--------+ + + + + | 05/01/ | Procedure | Cardiology | | | | 2019 | visit | | | | +--------+ + + + + | 05/01/ | Office | Cardiology | Silvia, | | | 2019 | Visit | | [place] [address] | | | | | | [place], | | | | | | [place] [address] | | | | | | [phone] | | | | | | | | +--------+ + + + + | 05/21/ | Implant | Cardiology | Daljit Singletary, | Remote Device | | 2019 | Monitor | | MD [address] [facility] | Interrogation | | | | | [place], | (Primary Dx); | | | | | [place] [address] | Pacemaker; | | | | | [phone] | Sinoatrial node | | | | [...] + | MISCELLANEOUS LAB | | | [phone] | + +---------+ + + | MISCELANIOUS LAB | | | [phone] | + +---------+ + + documented in this encounter Visit Diagnoses + + | Diagnosis | + + | Injury of left foot, initial encounter - Primary | + + documented in this encounter
--- OUTSIDE RECORDS SUMMARY | ~2020-04-15 | XMS | Encounter Summary ---
Demographics + + + | Address | [address] | | | [place] [address] | + + + | Home Phone [...] Providers + +------+ + | Care Supervising Architect Name | Role | Phone | [...] | 07/30/ | Telephone | [facility] | Michael Amanda, | Results | | 2013 | | MEDICINE [facility] | DO [address] | | | | | [address] | [place] | | | | | [place] | [address] | | | | | [address] | | | | | | [phone] | | | +--------+ + + + [...] | | | | | | [place], | | | | | | [place] [address] | | | | | | [phone] | | | | | | | | +--------+ + + + + | 05/01/ | Procedure | Cardiology | | | | 2019 | visit | | | | +--------+ + + + + | 05/01/ | Office | Cardiology | Silvia, | | | 2019 | Visit | | [place] [address] | | | | | | [place], | | | | | | [place] [address] | | | | | | [phone] | | | | | | | | +--------+ + + + + | 05/21/ | Implant | Cardiology | Daljit Singletary, | Remote Device | 2019 | Monitor | | MD [address] | Interrogation | | | | | [place], | (Primary Dx); | | | | | [place] [address] | Pacemaker; | | | | | [phone] | Sinoatrial node | | | | | | dysfunction (HCC) | | | | | | with symptomatic | | | | | | bradycardia | +--------+ + + + + documented as of this encounter Visit Diagnoses Not on filedocumented in this encounter"
--- OUTSIDE RECORDS SUMMARY | ~2020-04-15 | XMS | Encounter Summary ---
Demographics + + + | Address | [address] | | | [place] [address] | + + + | Home Phone [...] Providers + +------+ + | Care Recycling Program Manager Name | Role | Phone [...] | 05/08/ | Telephone | [facility] [place] | Emmanuel Daniel MD | Other | | 2019 | | GASTROENTEROLOGY | [address], [place] | | | | | [address] [place] | [address] [place], [place] | | | | | [address] [place], [place] | [address] | | | | | [address] | | | | | | [phone] | | | +--------+ + + + [...] | | | | | | [place] [address] | | | | | | [phone] | | | | | | | [...] | | | | | | [place] [address] | | | | | | [phone] | | | | | | | | +--------+ + + + + | 05/21/ | Implant | Cardiology | Daljit Singletary, | Remote Device | 2019 | Monitor | | [address] | Interrogation | | | | | [place], | (Primary Dx); | | | | | [place] [address] | Pacemaker; | | | | | [phone] | Sinoatrial node | | | | | | dysfunction (HCC) | | | | | | with symptomatic | | | | | | bradycardia | +--------+ + + + + documented as of this encounter Visit Diagnoses Not on filedocumented in this encounter"
--- OUTSIDE RECORDS SUMMARY | ~2020-04-15 | XMS | Encounter Summary ---
Demographics + + + | Address | [address] | | | [place] [address] | + + + | Home Phone [...] Providers + +------+ + | Care Distribution Lineman Name | Role | Phone | [...] 2014 | | CARDIOLOGY [address] | HOUSEKEEPER/CUSTODIAN/LAUNDRY WORKER [address] | edema and chest | | | | [place], | [facility] [place] | pain) | | | | [place] [address] | [address] | | | | | [phone] | | | +--------+ + + + [...] | | | | | | [place] [address] | | | | | | [phone] | | | | | | | | +--------+ + + + + | 05/01/ | Procedure | Cardiology | | | | 2019 | visit | | | | +--------+ + + + + | 05/01/ | Office | Cardiology | [place], | | | 2019 | Visit | | [place] W | | | | | | [place], | | | | | | [place] [address] | | | | | | [phone] | | | | | | | | +--------+ + + + + | 05/21/ | Implant | Cardiology | Daljit Singletary, | Remote Device | | 2019 | Monitor | | MD [address] | Interrogation | | | | | [address] [place], | (Primary Dx); | | | | | [place] [address] | Pacemaker; | | | | | [phone] | Sinoatrial node | | | | | | dysfunction (HCC) | | | | | | with symptomatic | | | | | | bradycardia | +--------+ + + + + documented as of this encounter Visit Diagnoses Not on filedocumented in this encounter"
--- OUTSIDE RECORDS SUMMARY | ~2020-04-15 | XMS | Encounter Summary ---
Demographics + + + | Address | [address] | | | [place] [address] | + + + | Home Phone [...] Team Providers + +------+ + | Care Treater Helper Name | Role | Phone | [...] | | | type | | [place] [address] | | | | | Unintentiona | | Phone: | | | | | l weight | | [phone] | | | | | loss | | Fax: | | | | | Pacemaker | | [phone] | | | | | Opioid type [...] | | | | | | [place] | | | | | | | COLONOSCOPY | | | | | | | FLX DX | | | | | | | W/COLLJ SPEC | | | | | | | WHEN PFRMD | | | | | | | IA | | | | | | | COLONOSCOPY | | | | | | | W/BIOPSY | | | | | | | SINGLE/MULTI | | | | | | | PLE IA | | | | | | | COLSC FLX | | | | | | | W/RMVL OF | | | | | | | TUMOR POLYP | | | | | | | LESION SNARE | | | | | | | TQ IA | | | | | | [...] + + | 01/21/ | Hospital | [facility] | Darin Gandhi | Rectal bleeding; | | 2019 | Encounter | MED CTR MP INTRA OP | MD Jacek [address] | Diarrhea, | | | | [address] | [address] [place] | unspecified type; | | | | [place], [place] | [place] [address] | Unintentional weight | | | | [address] | [phone] | loss; Opioid type | | | | [phone] | | dependence, | | | | | | continuous ([facility]); | | | | | | Allergy [...] | | | | | | [place] [address] | | | | | | [phone] | | | | | | | | +--------+ + + + + | 05/01/ | Procedure | Cardiology | | | | 2019 | visit | | | | +--------+ + + + + | 05/01/ | Office | Cardiology | [place], | | | 2019 | Visit | | [place] [address] | | | | | | [place], | | | | | | [place] [address] | | | | | | [phone] | | | | | | | | +--------+ + + + + | 05/21/ | Implant | Cardiology | Daljit Singletary, | Remote Device | | 2019 | Monitor | | [address] | Interrogation | | | | | [place], | (Primary Dx); | | | | | [place] [address] | Pacemaker; | | | | | [phone] | Sinoatrial node | | | | [...]
--- OUTSIDE RECORDS SUMMARY | ~2020-04-15 | XMS | Encounter Summary ---
Demographics + + + | Address | [address] | | | [place] [address] | + + + | Home Phone [...] Providers + +------+ + | Care Inpatient Coder Name | Role | Phone | [...] visit | CARDIOLOGY [address] | reprogramming/check | | | | [place], | [place], | DO [place] DELETE | | | | [place] [address] | [place] [address] | (Primary Dx); | | | | [phone] | [phone] | Sinoatrial node | | | | [...] | | | | | | [place] [address] | | | | | | [phone] | | | | | | | [...] | | | | | | [place] [address] | | | | | | [phone] | | | | | | | | +--------+ + + + + | 05/21/ | Implant | Cardiology | Daljit Singletary, | Remote Device | | 2019 | Monitor | | [address] | Interrogation | | | | | [place], | (Primary Dx); | | | | | [place] [address] | Pacemaker; | | | | | [phone] | Sinoatrial node | | | | [...]
--- OUTSIDE RECORDS SUMMARY | ~2020-04-15 | XMS | Encounter Summary ---
Demographics + + + | Address | [address] | | | [place] [address] | + + + | Home Phone [...] Team Providers + +------+ + | Care Motorcycle Designer Name | Role | Phone | + +------+ + | Kirk French MD | PCP | | + +------+ + Encounter Details +--------+ + + + + | Date | Type | Department | Care Team | Description | +--------+ + + + + | 07/21/ | Hospital | [facility] | Daljit Singletary, | | | 2018 | Encounter | MED CTR NUCLEAR | MD [address] [place] | | | | | MEDICINE [address] | [address], | | | | | [place], | [place] [address] | | | | | [place] [address] | [phone] | | | | | [phone] | | | +--------+ + + + [...] | | | | | [place], | | | | | | [place] [address] | | | | | | [phone] | | | | | | | | +--------+ + + + + | 05/01/ | Procedure | Cardiology | | | | 2019 | visit | | | | +--------+ + + + + | 05/01/ | Office | Cardiology | [place], | | | 2019 | Visit | | PARISA Vernon [address] | | | | | | [place], | | | | | | [place] [address] | | | | | | [phone] | | | | | | | | +--------+ + + + + | 05/21/ Implant | Cardiology | Daljit Singletary, | Remote Device | | 2019 | Monitor | | [facility] | Interrogation | | | | | [place], | (Primary Dx); | | | | | [place] [address] | Pacemaker; | | | | | [phone] | Sinoatrial node | | | | [...] | | | | | | Starting [facility] 07/21/18 at 1224, For | | | | | | | 1 dose, Nuclear Medicine | | | | | | + +--------+ + +------+------+ +---+---+ | | | +---+---+ documented in this encounter"
--- OUTSIDE RECORDS SUMMARY | ~2020-04-15 | XMS | Encounter Summary ---
Demographics + + + | Address | [address] | | | [place] [address] | + + + | Home Phone [...] Providers + +------+ + | Care Special Needs Child Caregiver Name | Role | Phone | + +------+ + PCP | Unavailable | + +------+ + Encounter Details +--------+ + + + + | Date | Type | Department | Care Team | Description | +--------+ + + + + | 10/29/ | Hospital | [facility] | Pia Akhtar | | | 2003 | Encounter | CONVERSION DEP [address] | MD [address] | | | | | [address] | [address] | | | | | [place] | [place] [address] | | | | | [address] | [phone] | | | | | [phone] | | | +--------+ + + + [...] W | | | | | | [place], | | | | | | [place] [address] | | | | | | [phone] | | | | | | | | +--------+ + + + + | 05/01/ | Procedure | Cardiology | | | | 2019 | visit | | | | +--------+ + + + + | 05/01/ | Office | Cardiology | [place]via | | | 2019 | Visit | | PARISA Vernon [address] | | | | | | [place], | | | | | | [place] [address] | | | | | | [phone] | | | | | | | | +--------+ + + + + | 05/21/ | Implant | Cardiology | Daljit Singletary, | Remote Device | 2019 | Monitor | | MD [address] [place] | Interrogation | | | | | [place], | (Primary Dx); | | | | | [place] [address] | Pacemaker; | | | | | [phone] | Sinoatrial node | | | | | | dysfunction (HCC) | | | | | | with symptomatic | | | | | | bradycardia | +--------+ + + + + documented as of this encounter Visit Diagnoses Not on filedocumented in this encounter"
--- OUTSIDE RECORDS SUMMARY | ~2020-04-15 | XMS | Encounter Summary ---
Demographics + + + | Address | [address] | | | [place] [address] | + + + | Home Phone [...] + +------+ + | Care Special Agent Name | Role | Phone [...] | | CARDIOLOGY [address] | Janeen PACKER OPERATOR AUTOMATIC [address] | mixed | | | | [place], | [place], | | | | | [place] [address] | [place] [address] | | | | | [phone] | [phone] | | | | | | | [...] | | | | | | [place], | | | | | | [place] [address] | | | | | | [phone] | | | | | | | | +--------+ + + + + | 05/01/ | Procedure | Cardiology | | | | 2019 | visit | | | | +--------+ + + + + | 05/01/ | Office | Cardiology | [place], | | | 2019 | Visit | | PARISA Vernon [address] | | | | | | [place], | | | | | | [place] [address] | | | | | | [phone] | | | | | | | | +--------+ + + + + | 05/21/ | Implant | Cardiology | Daljit Singletary, | Remote Device | | 2020 | Monitor | | MD Chiquis Kauffmanar | Interrogation | | | | | [place], | (Primary Dx); | | | | | [place] [address] | Pacemaker; | | | | | [phone] | Sinoatrial node | | | | [...]
--- OUTSIDE RECORDS SUMMARY | ~2020-04-15 | XMS | Encounter Summary ---
Demographics + + + | Address | [address] | | | [place] [address] | + + + | Home Phone [...] Providers + +------+ + | Care Brush Loader And Handle Attacher Name | Role | Phone | [...] | | CARDIOLOGY [address] | [address] [place] | | | | | [place], | [place], | | | | | [place] [address] | [place] [address] | | | | | [phone] | [phone] | | | | | | | [...] | | | | | | [place], | | | | | | [place] [address] | | | | | | [phone] | | | | | | | | +--------+ + + + + | 05/01/ | Procedure | Cardiology | | | | 2019 | visit | | | | +--------+ + + + + | 05/01/ | Office | Cardiology | [place], | | | 2019 | Visit | | PARISA Vernon [address] | | | | | | [place], | | | | | | [place] [address] | | | | | | [phone] | | | | | | | | +--------+ + + + + | 05/21/ | Implant | Cardiology | Daljit Singletary, | Remote Device | | 2019 | Monitor | | [address] [facility] | Interrogation | | | | | [place], | (Primary Dx); | | | | | [place] [address] | Pacemaker; | | | | | [phone] | Sinoatrial node | | | | | | dysfunction (HCC) | | | | | | with symptomatic | | | | | | bradycardia | +--------+ + + + + documented as of this encounter Visit Diagnoses Not on filedocumented in this encounter"
--- OUTSIDE RECORDS SUMMARY | ~2020-04-15 | XMS | Encounter Summary ---
Demographics + + + | Address | [address] [place] [address] [address] LO[address] | | | [place] [address] | + + + | Home Phone [...] [place] | | | | | [address] | | + + + + + Care Team Providers + +------+ + | Care Business Banking Sales Assistant Name | Role | Phone [...] | | 2019 | | Center at [facility] [address] | MD [address] | | | | | [address] | [facility] [place] | | | | | Mailcode: [place] | [address] | | | | | for Health and | [phone] | | | | | [facility] [address] | | | | | | [facility] [place] | | | | | | [address] | | | | | | [phone] | | | +--------+ + + + [...]
--- OUTSIDE RECORDS SUMMARY | ~2020-04-15 | XMS | Encounter Summary ---
Demographics + + + | Address | [address] | | | [place] [address] | + + + | Home Phone [...] 11/14/ | [facility] | [facility] | William Hirsch | | | 1999 | Encounter | MED CTR EMERGENCY | MD Cristobal [address] | | | | | CENTER [address] [place] | [address] | | | | | [place] | [place] [address] | | | | | [address] | [phone] | | | | | [phone] | | | +--------+ + + + [...] W | | | | | | [place], | | | | | | [place] [address] | | | | | | [phone] | | | | | | | | +--------+ + + + + | 05/01/ | Procedure | Cardiology | | | | 2019 | visit | | | | +--------+ + + + + | 05/01/ | Office | Cardiology | [place], | | | 2019 | Visit | | [address] | | | | | | [place], | | | | | | [place] [address] | | | | | | [phone] | | | | | | | | +--------+ + + + + | 05/21/ | Implant | Cardiology | Daljit Singletary, | Remote Device | | 2019 | Monitor | | MD [address] [place] | Interrogation | | | | | [place], | (Primary Dx); | | | | | [place] [address] | Pacemaker; | | | | | [phone] | Sinoatrial node | | | | | | dysfunction (HCC) | | | | | | with symptomatic | | | | | | bradycardia | +--------+ + + + + documented as of this encounter Visit Diagnoses Not on filedocumented in this encounter"
--- OUTSIDE RECORDS SUMMARY | ~2020-04-15 | XMS | Encounter Summary ---
Demographics + + + | Address | [address] | | | [place] [address] | + + + | Home Phone [...] Team Providers + +------+ + | Care Reservation Sales Agent Name | Role | Phone [...] unspecified | [address] | | | | | type | [address] | [place], | | | | | Procedures | [place], | [place] | | | | | [place] | [place] [address] | [address] | | | | | Stress Test | Phone: | Phone: | | | | | (Vasodilator | [phone] | [phone] | | | | | ) CHG | Fax: | Fax: | | | | | MYOCARDIAL | [phone] | [phone] | | | | | SPECT | [...] unspecified | [address] | [address] | | | | | type | [address] | [place], | | | | | Procedures | [place], | [place] | | | | | [place] | [place] [address] | [address] | | | | | Stress Test | Phone: | Phone: | | | | | (Vasodilator | [phone] | [phone] | | | | | ) CHG | Fax: | Fax: | | | | | MYOCARDIAL | [phone] | [phone] | | | | | SPECT | [...] | 07/21/ | Hospital | [facility] | Daljit Singletary, | Chest pain, | | 2018 | Encounter | MED CTR NUCLEAR | MD [address] | unspecified type | | | | MEDICINE [address] | [address] [place], | | | | | [place], | [place] [address] | | | | | [place] [address] | [phone] | | | | | [phone] | | | | | | | Scale AgentPavel | | +--------+ + + + + [...] + + + +---------+ + + | [place]-3 Fatty | CAPS, one capsule by | [...] | | | | | | [place] [address] | | | | | | [phone] | | | | | | | | +--------+ + + + + | 05/01/ | Procedure | Cardiology | | | | 2019 | visit | | | | +--------+ + + + + | 05/01/ | Office | Cardiology | [place], | | | 2019 | Visit | | PARISA [place] W | | | | | | [place], | | | | | | [place] [address] | | | | | | [phone] | | | | | | | | +--------+ + + + + | 05/21/ | Implant | Cardiology | Daljit Singletary, | Remote Device | 2019 | Monitor | | [address] | Interrogation | | | | | [place], | (Primary Dx); | | | | | [place] [address] | Pacemaker; | | | | | [phone] | Sinoatrial node | | | | [...] | | | | | doctor, Starting [facility] 07/21/18 at | | | | [...] | Starting [facility] 07/21/18 at 0822, For | | | | | | | 1 dose, Nuclear Medicine | | | | | | + +-------+ + +---+---+ +---+---+ | | | +---+---+ documented in this encounter"
--- OUTSIDE RECORDS SUMMARY | ~2020-04-15 | XMS | Encounter Summary ---
Demographics + + + | Address | [address] | | | [place] [address] | + + + | Home Phone [...] Providers + +------+ + | Care Etcher Aircraft Name | Role | Phone | [...] + | 06/25/ | [facility] | [facility] | [place], | SINUS BRADYCARDIA | | 2013 | Visit | CARDIOLOGY [address] | PARISA [place] [address] | (Primary Dx); | | | | [place], | [place], | Symptomatic PVCs; | | | | [place] [address] | [place] [address] | Coronary artery | | | | [phone] | [phone] | disease; | | | | | [...] time, he was admitted over observation at [facility] for a chest pain. Aortogram revealed [...] needed for Chest pain. 25 tablet 12 [place]-3 Fatty Acids (SALMON OIL-1000 PO) CAPS, [...] 16.1 01/25/2014 [facility] reviewed [facility] [...] ruled out. D. [facility] [...] yard. He is in class I-II of [place] [employer] funct ional class. There are [...] to go back in 3 days to [place] for an attempt of ablation under general [...] dizziness. He is in class I-II of [place] [employer] functional class. There are no [...] made to ensure accuracy; however, inadvertent computerized pile trimmer errors may be pre sent. Electronically signed [...] W | | | | | | [place], | | | | | | [place] [address] | | | | | | [phone] | | | | | | | | +--------+ + + + + | 05/01/ | Procedure | Cardiology | | | | 2019 | visit | | | | +--------+ + + + + | 05/01/ | Office | Cardiology | Silvia, | | | 2019 | Visit | | PARISA Vernon W | | | | | | [place], | | | | | | [place] [address] | | | | | | [phone] | | | | | | | | +--------+ + + + + | 05/21/ | Implant | Cardiology | Daljit Singletary, | Remote Device | 2019 | Monitor | | MD [address] [place] | Interrogation | | | | | [place], | (Primary Dx); | | | | | [place] [address] | Pacemaker; | | | | | [phone] | Sinoatrial node | | | | [...] of unspecified type of vessel, | | [place] or graft | + + | Hypertension Unspecified essential hypertension | + + | Syncope Syncope and collapse | + + | Hyperlipidemia Other and unspecified hyperlipidemia | + + documented in this encounter
--- OUTSIDE RECORDS SUMMARY | ~2020-04-15 | XMS | Encounter Summary ---
Demographics + + + | Address | [address] [place] [address] [address] | | | [place] [address] | + + + | Home Phone [...] [place] | | | | | [address] | | + + + + + Care Team Providers + +------+ + | Care Rag Baler Name | Role | Phone | [...] | | | [address] | [place], [place] | | | | | Mailcode: Center | [address] | | | | | for Health and | [phone] | | | | | [facility] [address] | | | | | | [place], [place] | | | | | | [address] | | | | | | [phone] | | | +--------+ + + + [...]
--- OUTSIDE RECORDS SUMMARY | ~2020-04-15 | XMS | Encounter Summary ---
Demographics + + + | Address | [address] | | | [place] [address] | + + + | Home Phone [...] + +------+ + | Care Director Of Media Name | Role | Phone | [...] [place] | | | | | [address] [place], [place] | [address] | | | | | [address] | | | | | | [phone] | | | +--------+ + + + [...] W | | | | | | [place], | | | | | | [place] [address] | | | | | | [phone] | | | | | | | | +--------+ + + + + | 05/01/ | Procedure | Cardiology | | | | 2019 | visit | | | | +--------+ + + + + | 05/01/ | Office | Cardiology | [place], | | | 2019 | Visit | | PARISA [place] W | | | | | | [place], | | | | | | [place] [address] | | | | | | [phone] | | | | | | | | +--------+ + + + + | 05/21/ | Implant | Cardiology | Daljit Singletary, | Remote Device | | 2020 | Monitor | | [address] [facility] | Interrogation | | | | | [place], | (Primary Dx); | | | | | [place] [address] | Pacemaker; | | | | | [phone] | Sinoatrial node | | | | [...]
--- OUTSIDE RECORDS SUMMARY | ~2020-04-15 | XMS | Encounter Summary ---
Demographics + + + | Address | [address] | | | [place] [address] | + + + | Home Phone [...] Providers + +------+ + | Care Reconnaissance Man Name | Role | Phone | [...] | | | | [place] | [address] | | | | | [address] | | | | | | [phone] | | | +--------+ + + + [...] W | | | | | | [place], | | | | | | [place] [address] | | | | | | [phone] | | | | | | | | +--------+ + + + + | 05/01/ | Procedure | Cardiology | | | | 2019 | visit | | | | +--------+ + + + + | 05/01/ | Office | Cardiology | [place], | | | 2019 | Visit | | PARISA Vernon W | | | | | | [place], | | | | | | [place] [address] | | | | | | [phone] | | | | | | | | +--------+ + + + + | 05/21/ | Implant | Cardiology | Daljit Singletary, | Remote Device | 2019 | Monitor | | [address] | Interrogation | | | | | [place], | (Primary Dx); | | | | | [place] [address] | Pacemaker; | | | | | [phone] | Sinoatrial node | | | | | | dysfunction (HCC) | | | | | | with symptomatic | | | | | | bradycardia | +--------+ + + + + documented as of this encounter Visit Diagnoses Not on filedocumented in this encounter"
--- OUTSIDE RECORDS SUMMARY | ~2020-04-15 | XMS | Encounter Summary ---
Demographics + + + | Address | [address] | | | [place] [address] | + + + | Home Phone [...] Providers + +------+ + | Care Pants Presser Automatic Name | Role | Phone | [...] Refill | | 2013 | | MEDICINE [facility] | DO [address] | | | | | [address] | [place] | | | | | [place] | [address] | | | | | [address] | | | | | | [phone] | | | +--------+--------+ + + + [...] | | | | | | [place] [address] | | | | | | [phone] | | | | | | | [...] | | | | | | [place] [address] | | | | | | [phone] | | | | | | | | +--------+ + + + + | 05/21/ | Implant | Cardiology | Daljit Singletary, | Remote Device | | 2019 | Monitor | | [address] [facility] | Interrogation | | | | | [address] [place], | (Primary Dx); | | | | | [place] [address] | Pacemaker; | | | | | [phone] | Sinoatrial node | | | | | | dysfunction (HCC) | | | | | | with symptomatic | | | | | | bradycardia | +--------+ + + + + documented as of this encounter Visit Diagnoses Not on filedocumented in this encounter"
--- OUTSIDE RECORDS SUMMARY | ~2020-04-15 | XMS | Encounter Summary ---
Demographics + + + | Address | [address] | | | [place] [address] | + + + | Home Phone [...] Providers + +------+ + | Care [employer] Teacher Name | Role | Phone [...] [address] | | | | | [place], | [place], | | | | | [place] [address] | [place] [address] | | | | | [phone] | [phone] | | | | | | | [...] [address] | | | | | | [place], | | | | | | [place] [address] | | | | | | [phone] | | | | | | | | +--------+ + + + + | 05/01/ | Procedure | Cardiology | | | | 2019 | visit | | | | +--------+ + + + + | 05/01/ | Office | Cardiology | Silvia, | | | 2019 | Visit | | [address] | | | | | | [place], | | | | | | [place] [address] | | | | | | [phone] | | | | | | | | +--------+ + + + + | 05/21/ | Implant | Cardiology | Daljit Singletary, | Remote Device | | 2019 | Monitor | | [address] [place] | Interrogation | | | | | [place], | (Primary Dx); | | | | | [place] [id number] | Pacemaker; | | | | | [phone] | Sinoatrial node | | | | | | dysfunction (HCC) | | | | | | with symptomatic | | | | | | bradycardia | +--------+ + + + + documented as of this encounter Visit Diagnoses Not on filedocumented in this encounter"
--- OUTSIDE RECORDS SUMMARY | ~2020-04-15 | XMS | Encounter Summary ---
Demographics + + + | Address | [address] | | | [place] [address] | + + + | Home Phone [...] Providers + +------+ + | Care Senior Accounts Payable Clerk Name | Role | Phone | [...] | 02/15/ | Office | [facility] | Jay Cohn PA | DIDIER (obstructive | | 2012 | Visit | SLEEP DISORDER [address] | [address] | sleep apnea) | | | | [address] | [place] | (Primary Dx) | | | | [place] [address] | [address] | | | | | [phone] | | | +--------+---------+ + + + [...] PDTGo to [facility] in [facility] for replacement equipment including: Nasal pillows or Sleep Tarnago Filter Work toward wearing CPAP 100% of [...] pillows obtained from: [facility] [place] pressure is: 13 cm CPAP download shows [...] to go to [facility] in [place] to replace his equipment, but it had [...] to go to [facility] in [place] to g et a new mask and filter. He is to work toward wearing his CPAP 100% of the time he is asle ep. I will follow up again in 1 month, sooner prn. Fifteen minutes were spent [id number], wi th the majority of time spent [...] | | | | | [place], | | | | | | [place] [address] | | | | | | [phone] | | | | | | | | +--------+ + + + + | 05/01/ | Procedure | Cardiology | | | | 2019 | visit | | | | +--------+ + + + + | 05/01/ | Office | Cardiology | Silvia, | | | 2019 | Visit | | PARISA Vernon W | | | | | | [place], | | | | | | [place] [address] | | | | | | [phone] | | | | | | | | +--------+ + + + + | 05/21/ | Implant | Cardiology | Daljit Singletary, | Remote Device | | 2020 | Monitor | | [facility] | Interrogation | | | | | [place], | (Primary Dx); | | | | | [place] [address] | Pacemaker; | | | | | [phone] | Sinoatrial node | | | | [...]
--- OUTSIDE RECORDS SUMMARY | ~2020-04-15 | XMS | Encounter Summary ---
Demographics + + + | Address | [address] | | | [place] [address] | + + + | Home Phone [...] | 07/01/ | Hospital | [facility] | Scotty Galdamez, | DDD (degenerative | | 2018 | Encounter | MED CTR XRAY [address] | AIR SAW OPERATOR [address] | disc disease), | | | | [place] | [address] | lumbar; Chronic | | | | [place] [address] | [place] [address] | left-sided low back | | | | [phone] | [phone] | pain with left-sided | | | [...] + + + +---------+ + + | [place]-3 Fatty | CAPS, one capsule by | [...] | | | | | | [place] [address] | | | | | | [phone] | | | | | | | | +--------+ + + + + | 05/01/ | Procedure | Cardiology | | | | 2019 | visit | | | | +--------+ + + + + | 05/01/ | Office | Cardiology | Silvia, | | | 2019 | Visit | | PARISA Vernon W | | | | | | [place], | | | | | | [place] [address] | | | | | | [phone] | | | | | | | | +--------+ + + + + | 05/21/ | Implant | Cardiology | SunshinecherelleDaljit, | Remote Device | | 2019 | Monitor | | [address] [facility] | Interrogation | | | | | [place], | (Primary Dx); | | | | | [place] [address] | Pacemaker; | | | | | [phone] | Sinoatrial node | | | | [...]
--- OUTSIDE RECORDS SUMMARY | ~2020-04-15 | XMS | Encounter Summary ---
Demographics + + + | Address | [address] | | | [place] [address] | + + + | Home Phone [...] Team Providers + +------+ + | Care Salvage Engineer Name | Role | Phone | + +------+ + | Kirk French MD | PCP | | + +------+ + Encounter Details +--------+ + + + + | Date | Type | Department | Care Team | Description | +--------+ + + + + | 08/10/ | Orders Only | [facility]ESSY KIM | [place], | Mixed hyperlipidemia | | 2016 | | MED CTR LABORATORY | PARISA Vernon [address] | (Primary Dx) | | | | [address] [place] | [place], | | | | | [place] | [place] [address] | | | | | [address] | [phone] | | | | | [phone] | | | +--------+ + + + [...] W | | | | | | [place], | | | | | | [place] [address] | | | | | | [phone] | | | | | | | | +--------+ + + + + | 05/01/ | Procedure | Cardiology | | | | 2019 | visit | | | | +--------+ + + + + | 05/01/ | Office | Cardiology | Silvia, | | | 2019 | Visit | | PARISA Vernon W | | | | | | [place], | | | | | | [place] [address] | | | | | | [phone] | | | | | | | | +--------+ + + + + | 05/21/ | Implant | Cardiology | Daljit Singletary, | Remote Device | | 2020 | Monitor | | [facility] | Interrogation | | | | | [place], | (Primary Dx); | | | | | [place] [address] | Pacemaker; | | | | | [phone] | Sinoatrial node | | | | [...]
--- OUTSIDE RECORDS SUMMARY | ~2020-04-15 | XMS | Encounter Summary ---
Demographics + + + | Address | [address] | | | [place] [address] | + + + | Home Phone [...] Providers + +------+ + | Care Major Assembler Name | Role | Phone | [...] | | PVCs | PARISA Vernon | [address] | | | | | Procedures | [address] | [address] | | | | | [place] OFFICE | [place] | [place] | | | | | CONSULTATION | [place], | [address] Phone: | | | | | NEW/ESTAB | [place] | [phone] | | | | | PATIENT 40 | [address] | Fax: | | | | | MIN | Phone: | [phone] | | | | | | [phone] | | | | | | | Fax: | | | | | | | [phone] | | +--------+--------+ + + + + Encounter Details +--------+---------+ + + + | Date | Type | Department | Care Team | Description | +--------+---------+ + + + | 11/30/ | Office | [facility] | Jay Gambino MD | Symptomatic PVCs | | 2015 | Visit | [facility]ARDIOLOGY [place] | [address] | (Primary Dx) | | | | HI[address] | [address] [place], | | | | | [facility] [address] [place] | [place] [address] | | | | | [address] | [phone] | | | | | [phone] | | | +--------+---------+ + + + [...] Gambino MD - 11/30/2014 5:37 PM PST [facility] [address] [place] [address] Patient Name: Moe Sanchez Date: 1960 Date [...] luz marcos as needed for Chest pain. [place]-3 Fatty Acids (SALMON OIL-1000 PO) CAPS, one [...] were not detected in the editing p QuadWrangleess. Should you have any questions or concerns, [...] | | | | | | [place], | | | | | | [place] [address] | | | | | | [phone] | | | | | | | | +--------+ + + + + | 05/01/ | Procedure | Cardiology | | | | 2019 | visit | | | | +--------+ + + + + | 05/01/ | Office | Cardiology | Silvia, | | | 2019 | Visit | | PARISA Vernon W | | | | | | [place], | | | | | | [place] [address] | | | | | | [phone] | | | | | | | | +--------+ + + + + | 05/21/ | Implant | Cardiology | AnshujohnsoncherelleDaljit, | Remote Device | | 2019 | Monitor | | [address] [facility] | Interrogation | | | | | [place], | (Primary Dx); | | | | | [place] [address] | Pacemaker; | | | | | [phone] | Sinoatrial node | | | | [...]
--- OUTSIDE RECORDS SUMMARY | ~2020-04-15 | XMS | Encounter Summary ---
Demographics + + + | Address | [address] | | | [place] [address] | + + + | Home Phone [...] Team Providers + +------+ + | Care Patient'S Librarian Name | Role | Phone | [...] + | 01/24/ | Telephone | [facility] | Daljit Singletary, | Other | | 2019 | | CARDIOLOGY [address] | MD [address] [place] | | | | | [place], | [place], | | | | | [place] [address] | [place] [address] | | | | | [phone] | [phone] | | | | | | | [...] | | | | | | [place], | | | | | | [place] [address] | | | | | | [phone] | | | | | | | | +--------+ + + + + | 05/01/ | Procedure | Cardiology | | | | 2019 | visit | | | | +--------+ + + + + | 05/01/ | Office | Cardiology | Silvia, | | | 2019 | Visit | | PARISA Vernon W | | | | | | [place], | | | | | | [place] [address] | | | | | | [phone] | | | | | | | | +--------+ + + + + | 05/21/ | Implant | Cardiology | Daljit Singletary, | Remote Device | | 2019 | Monitor | | [facility] | Interrogation | | | | | [address] [place], | (Primary Dx); | | | | | [place] [address] | Pacemaker; | | | | | [phone] | Sinoatrial node | | | | | | dysfunction (HCC) | | | | | | with symptomatic | | | | | | bradycardia | +--------+ + + + + documented as of this encounter Visit Diagnoses Not on filedocumented in this encounter"
--- OUTSIDE RECORDS SUMMARY | ~2020-04-15 | XMS | Encounter Summary ---
Demographics + + + | Address | [address] | | | [place] [address] | + + + | Home Phone [...] Providers + +------+ + | Care English Composition Instructor Name | Role | Phone | [...] | | | | Sinoatrial | Geri, PIGS FEET CLEANER | [address] | | | | | node | [address] | [place], | | | | | dysfunction | [place] | [place] | | | | | (HCC) | [place], [place] | [address] | | | | | Coronary | [address] | Phone: | | | | | artery | Phone: | [phone] | | | | | disease | [phone] | Fax: | | | | | involving | Fax: | [phone] | | | | | tanana | [phone] | | | | | | coronary | | | | | | | artery of | | | | | | | tanana heart | | | | | | [...] | | | | | | Complete [place] | | | | | | | ECHO HEART | | | | | | | XTHORACIC,CO | | | | | | | MPLETE W | | | | | | | DOPPLER [place] | | | | | | [...] | Visit | CARDIOLOGY [address] | PIGS FEET CLEANER [address] | dysfunction (HCC) | | | | [place], | [place], [place] | with symptomatic | | | | [place] [address] | [address] | bradycardia (Primary | | | | [phone] | | Dx); Coronary | | | | | | artery disease | | | | | | involving tanana | | | | | | coronary artery of | | | | | | tanana heart without | | | | | [...] Preventative health care Coronary artery disease involving tanana coronary artery without angina pectoris Cannabis abuse, [...] 3rd dose, call 911 100 tablet 3 [place]-3 Fatty Acids (SALMON OIL-1000 PO) CAPS, one [...] scanned Paceart documentation and device PDF in OptiWi-fi for interrogation (with progr amming changes) performed [...] to go back in 3 days to [place] for an attempt of ablation under general [...] this chart may have been created with [employer] voice recognition software. Occasi onal wrong-word or [...] | | | | | | [place] [address] | | | | | | [phone] | | | | | | | | +--------+ + + + + | 05/01/ | Procedure | Cardiology | | | 2019 | visit | | | | +--------+ + + + + | 05/01/ | Office | Cardiology | Silvia, | | | 2019 | Visit | | PARISA Vernon W | | | | | | [place], | | | | | | [place] [address] | | | | | | [phone] | | | | | | | | +--------+ + + + + | 05/21/ | Implant | Cardiology | Sydni Singletary, | Remote Device | | 2019 | Monitor | | [address] [place] | Interrogation | | | | | [place], | (Primary Dx); | | | | | [place] [address] | Pacemaker; | | | | | [phone] | Sinoatrial node | | | | [...] (TTE) Demographics Patient Name VICTOR HUGO | [facility] | | [place] Room Number SARAH Patient | [facility] | | [id number] Date of Study 06/16/2016 Number | - IMAGING | | Visit Number [id number] | | | Referring Physician JOSE ARMANDO GARCIA Number Date of 1960 | | | Repair Technician LUIS FERNANDO DUARTE Age | | | 56 year(s) Interpreting | | | GURJIT TROY | | | Monitor Car Operator SYDNI SINGLETARY, | | | Gender | | | Male Nurse Procedure Type of Study TTE | | | procedure: ECHO Complete. Procedure dateDate: 06/16/2016Start: 10:55 | | | AM Technical Quality: Adequate visualizationStudy Location: Echo | | | LabIndications: CAD [place] CORONARY ARTERY 414.01/ I25.10 and | | [...] BARRY Room Number SARAH | | Patient [id number] Date of Study 06/16/2016 Number Visit Number | | [id number] Referring Physician JOSE ARMANDO GARCIA Number | | Date of 1960 Repair Technician LUIS FERNANDO DUARTE Age | | 56 year(s) Interpreting GURJIT TROY | | Monitor Car Operator SYDNI SINGLETARY, | | Gender Male NurseProcedureType of Study TTE | | procedure: ECHO Complete.Procedure dateDate: 06/16/2016Start: 10:55 AMTechnical Quality: | | Adequate visualizationStudy Location: Echo LabIndications: CAD [place] CORONARY ARTERY | | 414.01/ I25.10 and [...] [address] | [address] | [place], [place] | [phone] | | [facility] | | [address] | | | - IMAGING | | [...] | | 2. Coronary artery disease involving tanana coronary artery of | | | tanana heart without angina pectoris I25.10 414.01 ECHO [...] + + | Coronary artery disease involving tanana coronary artery of tanana heart without | | angina pectoris | [...]
--- OUTSIDE RECORDS SUMMARY | ~2020-04-15 | XMS | Encounter Summary ---
Demographics + + + | Address | [address] | | | [place] [address] | + + + | Home Phone [...] Providers + +------+ + | Care Java Xml Developer Name | Role | Phone | [...] + | 08/31/ | Refill | [facility] | Kirk French | Medication Refill | | 2018 | | [facility] | MD Brea [address] | | | | | [facility] | | | | | [address] | [place] [address] | | | | | [place], [place] | [phone] | | | | | [address] | | | | | | [phone] | | | +--------+--------+ + + + [...] | | | | | | [place] [address] | | | | | | [phone] | | | | | | | | +--------+ + + + + | 05/01/ | Procedure | Cardiology | | | | 2019 | visit | | | | +--------+ + + + + | 05/01/ | Office | Cardiology | Silvia, | | | 2019 | Visit | | PAR[place] [address] | | | | | | [place], | | | | | | [place] [address] | | | | | | [phone] | | | | | | | | +--------+ + + + + | 05/21/ | Implant | Cardiology | Daljit Singletary, | Remote Device | | 2019 | Monitor | | [facility] | Interrogation | | | | | [place], | (Primary Dx); | | | | | [place] [address] | Pacemaker; | | | | | [phone] | Sinoatrial node | | | | | | dysfunction (HCC) | | | | | | with symptomatic | | | | | | bradycardia | +--------+ + + + + documented as of this encounter Visit Diagnoses Not on filedocumented in this encounter"
--- OUTSIDE RECORDS SUMMARY | ~2020-04-15 | XMS | Encounter Summary ---
Demographics + + + | Address | [address] | | | [place] [address] | + + + | Home Phone [...] Providers + +------+ + | Care Grain Trimmer Name | Role | Phone | [...] | ER FUP | [address] | [address] | | | | | Procedures | [place], | [place], | | | | | FUP | [place] [address] | [place] [address] | | | | | | Phone: | Phone: | | | | | | [phone] | [phone] | | | | | | Fax: | Fax: | | | | | | [phone] | [phone] | +--------+--------+ + + + + Encounter Details +--------+---------+ + + + | Date | Type | Department | Care Team | Description | +--------+---------+ + + + | 02/11/ | Office | [facility] [place] | [place], | Coronary artery | | 2016 | Visit | CARDIOLOGY [address] | Janeen QUITLINE COUNSELOR [address] | disease involving | | | | [place], | [place], | [place] coronary | | | | [place] [address] | [place] [address] | artery of [place] | | | | [phone] | [phone] | heart without angina | | | [...] of non-critical coronary artery d isease involving [place] coronary artery of [place] heart without angina pectoris, essential h ypertension, [...] him. He sleeps on 1 pillow at [facility] without any shortness of breath. Overall, he has been doing well otherwise than the [facility] iety. MEDICAL, SURGICAL, AND PERSONAL HISTORY Past [...] Preventative health care Coronary artery disease involving [place] coronary artery of [place] heart without angina pectoris Cannabis abuse, daily [...] DOSE, CALL 911 100 tablet 3 [place]-3 Fatty Acids (SALMON OIL-1000 PO) CAPS, one [...] was found Confirmed by ANGELA MARADIAGA MD ([id number]) on 01/25/2017 6:45:26 AM LAB RESULTS reviewed [...] PLTEX 162 11/05/2016 I reviewed records from [facility] for emergency department visit o n 01/2017 which is summarized in the HPI. Above data and testing is reviewed this visit; testing below is historical data unless othe rwise specified. ASSESSMENT: 1. Essential hypertension with goal blood pressure less than 130/80: A. Today it has been well controlled 110 mmHg. He is in class I of t he [employer] functional class. On physical examination there are no signs of fluid overload. 2. Non-critical Coronary artery disease involving [place] coronary a rtery of [place] heart without angina pectoris: A. Normal exercise [...] to go back in 3 days to [place] for an attempt of ablation under general [...] a normal stable device function. Estimated remaining [facility] longevity is 3.5 years.. 5. Lightheadedness [...] this chart may have been created with [employer] voice recognition software. Occasi onal wrong-word or [...] | | | | | | [place] [address] | | | | | | [phone] | | | | | | | | +--------+ + + + + | 05/01/ | Procedure | Cardiology | | | | 2019 | visit | | | | +--------+ + + + + | 05/01/ | Office | Cardiology | Silvia, | | | 2019 | Visit | | PARISA [place] [address] | | | | | | [place], | | | | | | [place] [address] | | | | | | [phone] | | | | | | | | +--------+ + + + + | 05/21/ | Implant | Cardiology | Daljit Singletary, | Remote Device | | 2019 | Monitor | | [address] | Interrogation | | | | | [place], | (Primary Dx); | | | | | [place] [address] | Pacemaker; | | | | | [phone] | Sinoatrial node | | | | | | dysfunction (HCC) | | | | | | with symptomatic | | | | | | bradycardia | +--------+ + + + + documented as of this encounter Visit Diagnoses + + | Diagnosis | + + | Coronary artery disease involving [place] coronary artery of [place] heart without | | angina pectoris - Primary | + + | Essential hypertension with goal blood pressure less than 130/80 | + + | Hyperlipidemia, mixed Mixed hyperlipidemia | + + documented in this encounter
--- OUTSIDE RECORDS SUMMARY | ~2020-04-15 | XMS | Encounter Summary ---
Demographics + + + | Address | [address] | | | [place] [address] | + + + | Home Phone [...] Team Providers + +------+ + | Care Instruction Assistant Principal Name | Role | Phone | [...] | CARDIOLOGY [address] | [address] [place] | Interrogation | | | | [place], | [place], | (Primary Dx); | | | | [place] [address] | [place] [address] | Presence of | | | | [phone] | [phone] | permanent cardiac | | | | [...] | | | | | | [place] [address] | | | | | | [phone] | | | | | | | [...] | | | | | | [place] [address] | | | | | | [phone] | | | | | | | | +--------+ + + + + | 05/21/ | Implant | Cardiology | Daljit Singletary, | Remote Device | | 2019 | Monitor | | [address] [facility] | Interrogation | | | | | [place], | (Primary Dx); | | | | | [place] [address] | Pacemaker; | | | | | [phone] | Sinoatrial node | | | | [...] Paceart documentation and remote PDF scanned into [employer] | | | for remote interrogation results. [...]
--- OUTSIDE RECORDS SUMMARY | ~2020-04-15 | XMS | Encounter Summary ---
Demographics + + + | Address | [address] | | | [place] [address] | + + + | Home Phone [...] Team Providers + +------+ + | Care Offender Job Retention Specialist Name | Role | Phone | [...] + + | 02/01/ | Telephone | [facility] | [place]via, | Other (unable to | | 2013 | | CARDIOLOGY [address] | [place] [address] | take the isosorbide) | | | | [place], | [place], | | | | | [place] [address] | [place] [address] | | | | | [phone] | [phone] | | | | | | | [...] | | | | | | [place], | | | | | | [place] [address] | | | | | | [phone] | | | | | | | | +--------+ + + + + | 05/01/ | Procedure | Cardiology | | | | 2019 | visit | | | | +--------+ + + + + | 05/01/ | Office | Cardiology | Silvia, | | | 2019 | Visit | | PARISA [place] [address] | | | | | | [place], | | | | | | [place] [address] | | | | | | [phone] | | | | | | | | +--------+ + + + + | 05/21/ | Implant | Cardiology | Daljit Singletary, | Remote Device | | 2020 | Monitor | | [place] [facility] | Interrogation | | | | | [place], | (Primary Dx); | | | | | [place] [address] | Pacemaker; | | | | | [phone] | Sinoatrial node | | | | | | dysfunction (HCC) | | | | | | with symptomatic | | | | | | bradycardia | +--------+ + + + + documented as of this encounter Visit Diagnoses + + | Diagnosis | + + | Coronary artery disease - Primary Coronary atherosclerosis of unspecified type of | | vessel, qagan tayagungin or graft | + + | Hypertension Unspecified essential hypertension | + + | Hyperlipidemia Other and unspecified hyperlipidemia | + + documented in this encounter"
--- OUTSIDE RECORDS SUMMARY | ~2020-04-15 | XMS | Encounter Summary ---
Demographics + + + | Address | [address] | | | [place] [address] | + + + | Home Phone [...] + +------+ + | Care Registered Public Health Nurse Name | Role | Phone [...] 2019 | | CARDIOLOGY [address] | Cash Specialist | | | | | [place], | | | | | | [place] [address] | | | | | | [phone] | | | +--------+ + + + [...] W | | | | | | [place], | | | | | | [place] [address] | | | | | | [phone] | | | | | | | | +--------+ + + + + | 05/01/ | Procedure | Cardiology | | | | 2019 | visit | | | | +--------+ + + + + | 05/01/ | Office | Cardiology | Silvia, | | | 2019 | Visit | | PARISA [place] [address] | | | | | | [place], | | | | | | [place] [address] | | | | | | [phone] | | | | | | | | +--------+ + + + + | 05/21/ | Implant | Cardiology | Daljit Singletary, | Remote Device | | 2019 | Monitor | | MD [facility] | Interrogation | | | | | [place], | (Primary Dx); | | | | | [place] [address] | Pacemaker; | | | | | [phone] | Sinoatrial node | | | | [...] | | | | | | | [place], | | | | | | External [...]
--- OUTSIDE RECORDS SUMMARY | ~2020-04-15 | XMS | Encounter Summary ---
Demographics + + + | Address | [address] | | | [place] [address] | + + + | Home Phone [...] Providers + +------+ + | Care Medical Chief Technician Name | Role | Phone | [...] 2019 | | GASTROENTEROLOGY | [address] [place] | | | | | [address] [place] | [address] [place], [place] | | | | | [address] [place], [place] | [address] | | | | | [address] | | | | | | [phone] | | | +--------+ + + + [...] | | | | | | [place] [address] | | | | | | [phone] | | | | | | | [...] | | | | | | [place] [address] | | | | | | [phone] | | | | | | | | +--------+ + + + + | 05/21/ | Implant | Cardiology | Daljit Singletary, | Remote Device | | 2019 | Monitor | | [facility] | Interrogation | | | | | [place], | (Primary Dx); | | | | | [place] [address] | Pacemaker; | | | | | [phone] | Sinoatrial node | | | | | | dysfunction (HCC) | | | | | | with symptomatic | | | | | | bradycardia | +--------+ + + + + documented as of this encounter Visit Diagnoses Not on filedocumented in this encounter"
--- OUTSIDE RECORDS SUMMARY | ~2020-04-15 | XMS | Encounter Summary ---
Demographics + + + | Address | [address] | | | [place] [address] | + + + | Home Phone [...] Team Providers + +------+ + | Care Brewer Helper Name | Role | Phone | [...] | | GASTROENTEROLOGY | [address] [place] [place] | | | | | [address] [place] | [address] [place], [place] | | | | | [address] [place], [place] | [address] | | | | | [address] | | | | | | [phone] | | | +--------+ + + + [...] | | | | | | [place] [address] | | | | | | [phone] | | | | | | | | +--------+ + + + + | 05/01/ | Procedure | Cardiology | | | | 2019 | visit | | | | +--------+ + + + + | 05/01/ | Office | Cardiology | Silvia, | | | 2019 | Visit | | [address] [address] | | | | | | [place], | | | | | | [place] [address] | | | | | | [phone] | | | | | | | | +--------+ + + + + | 05/21/ | Implant | Cardiology | Daljit Singletary, | Remote Device | 2019 | Monitor | | MD [address] [place] | Interrogation | | | | | [place], | (Primary Dx); | | | | | [place] [address] | Pacemaker; | | | | | [phone] | Sinoatrial node | | | | | | dysfunction (HCC) | | | | | | with symptomatic | | | | | | bradycardia | +--------+ + + + + documented as of this encounter Visit Diagnoses Not on filedocumented in this encounter"
--- OUTSIDE RECORDS SUMMARY | ~2020-04-15 | XMS | Encounter Summary ---
Demographics + + + | Address | [address] | | | [place] [address] | + + + | Home Phone [...] Team Providers + +------+ + | Care Tender Coordinator Name | Role | Phone | [...] | | Ascending | Silvia | [address] [place] | | | | | aortic | Janeen, NUTRITION SERVICES ASSISTANT | [place], | | | | | aneurysm | [address] | [place] [address] | | | | | (HCC) | [place] | Phone: | | | | | Abdominal | [place], | [phone] | | | | | aortic | [place] | Fax: | | | | | aneurysm | [address] | [phone] | | | | | (AAA) | Phone: | | | | | | without | [phone] | | | | | | rupture | Fax: | | | | | | (HCC) | [phone] | | | | | | Procedures [...] | unspecified | MD Martell | [address] | | | | | type ER | [address] | [address] | | | | | FUP | [place] | [place], | | | | | Procedures | [place], [place] | [place] [address] | | | | | FUP - SUW & | [address] | Phone: | | | | | MISHA PT, LAST | Phone: | [phone] | | | | | SEEN | [phone] | Fax: | | | | | 08-24-18 | Fax: | [phone] | | | | | | [phone] | | +--------+ + + + + + Encounter Details +--------+---------+ + + + | Date | Type | Department | Care Team | Description | +--------+---------+ + + + | 01/11/ | Office | [facility] | Silvia, | Coronary artery | | 2019 | Visit | CARDIOLOGY [address] | PARISA [place] [address] | disease involving | | | | [place], | [place], | [place] coronary | | | | [place] [address] | [place] [address] | artery of wrangell | | | | [phone] | [phone] | heart without angina | | | [...] encounter Patient Instructions Patient Instructions Christine Rodriguez, Lumpia Wrapper Maker - 01/11/2019 12:45 PM PST 1. You [...] Check-in time: 1. Check in at the [facility]. 2. Do not [...] procedure. 6. Make sure you have a driver courier to take you home. Your driver courier will also need to sign you ou [...] hospital line at and ask for nursing sorting supervisor t o let them know you are cancelling . Blood test: Non-fasting Date Due: same day as CTA Where to go for labs: [facility]- [address] [facility]. CTA of Chest and Abdomen: Date: [...] of non-critical coronary artery d isease involving wrang[place] coronary artery of wr[place] heart without angina pectoris, essential h ypertension, [...] Preventative health care Coronary artery disease involving wrangell coronary artery of wrang[place] heart without angina pectoris Cannabis abuse, daily [...] 3RD DOSE, CALL 911 100 tablet 3 [place]-3 Fatty Acids (SALMON OIL-1000 PO) CAPS, one capsule by mouth daily twice daily ondansetron (ZOFRAN ODT) 4 mg disintegrating tablet Take 4 mg by mouth. ONE TOUCH DELICA LANCETS [facility] [...] was found Confirmed by HIREN WINKLER, ANGELA ([id number]) on 01/03/2019 8:10:39 PM LAB RESULTS reviewed [...] the HPI. RESULTS- I reviewed reports from [facility]: Xr Chest Ap Portable Result [...] ASSESSMENT: 1. Non-critical Coronary artery disease involving wrangell coronary artery of wrangell heart wi thout angina pectoris: A. Normal [...] with moderate exertion of t he [place] Heart Association functional class. Heart failure stage [...] [facility]. Patient had spontaneous PVC's [...] go back in 3 days t o [place] for an attempt of ablation under general [...] if he has any further problems IChristine Lumpia Wrapper Maker am acting as a scribe on behalf of, and in the pres ence of PARISA Lomas. - Reji Newman 01/11/2019 13:46 I, PARISA Lomas, personally performed the services described in this documentati on, as scribed in my presence and it is both accurate and complete. -PARISA Lomas 01/11/2019 Portions of this chart may have been created with [employer] voice recognition software. Occasi onal wrong-word or [...] | | | | | | [place], | | | | | | [place] [address] | | | | | | [phone] | | | | | | | | +--------+ + + + + | 05/01/ | Procedure | Cardiology | | | | 2019 | visit | | | | +--------+ + + + + | 05/01/ | Office | Cardiology | Silvia, | | | 2019 | Visit | | PARISA [place] [address] | | | | | | [place], | | | | | | [place] [address] | | | | | | [phone] | | | | | | | | +--------+ + + + + | 05/21/ | Implant | Cardiology | Daljit Singletary, | Remote Device | | 2019 | Monitor | | MD [address] [place] | Interrogation | | | | | [place], | (Primary Dx); | | | | | [place] [address] | Pacemaker; | | | | | [phone] | Sinoatrial node | | | | [...]
--- OUTSIDE RECORDS SUMMARY | ~2020-04-15 | XMS | Encounter Summary ---
Demographics + + + | Address | [address] | | | [place] [address] | + + + | Home Phone [...] Team Providers + +------+ + | Care Mesh Worker Name | Role | Phone | + +------+ + PCP | Unavailable | + +------+ + Encounter Details +--------+ + + + + | Date | Type | Department | Care Team | Description | +--------+ + + + + | 02/21/ | [facility] | Cristy Braun | | | 2008 | Encounter | [facility] EM[facility] | MD Ronald [address] | | | | | [place] [address] | [facility], | | | | | [place] | [place] [address] | | | | | [address] | [phone] | | | | | [phone] | | | +--------+ + + + [...] W | | | | | | [place], | | | | | | [place] [address] | | | | | | [phone] | | | | | | | | +--------+ + + + + | 05/01/ | Procedure | Cardiology | | | | 2019 | visit | | | | +--------+ + + + + | 05/01/ | Office | Cardiology | Silvia | | | 2019 | Visit | | PARISA Vernon [address] | | | | | | [place], | | | | | | [place] [address] | | | | | | [phone] | | | | | | | | +--------+ + + + + | 05/21/ | Implant | Cardiology | Daljit Singletary, | Remote Device | 2019 | Monitor | | MD [address] [place] | Interrogation | | | | | [place], | (Primary Dx); | | | | | [place] [address] | Pacemaker; | | | | | [phone] | Sinoatrial node | | | | | | dysfunction (HCC) | | | | | | with symptomatic | | | | | | bradycardia | +--------+ + + + + documented as of this encounter Visit Diagnoses Not on filedocumented in this encounter"
--- OUTSIDE RECORDS SUMMARY | ~2020-04-15 | XMS | Encounter Summary ---
Demographics + + + | Address | [address] | | | [place] [address] | + + + | Home Phone [...] Team Providers + +------+ + | Care Dice Table Operator Name | Role | Phone [...] | disease involving | | | | [place], | [place], | [place] | | | | [place] [address] | [place] [address] | artery without | | | | [phone] | [phone] | angina pectoris | | | | [...] | | | | | | [place] [address] | | | | | | [phone] | | | | | | | [...] | | | | | | [place] [address] | | | | | | [phone] | | | | | | | | +--------+ + + + + | 05/21/ | Implant | Cardiology | Daljit Singletary, | Remote Device | | 2020 | Monitor | | MD [address] [facility] | Interrogation | | | | | 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
--- OUTSIDE RECORDS SUMMARY | ~2020-04-15 | XMS | Encounter Summary ---
Demographics + + + | Address | [address] | | | [place] [address] | + + + | Home Phone [...] Providers + +------+ + | Care Applications Programmer Name | Role | Phone [...] + | 01/02/ | Telephone | [facility] | Daljit Singletary, | Other (chest pain) | | 2018 | | CARDIOLOGY [address] | MD [address] [place] | | | | | [place], | [place], | | | | | [place] [address] | [place] [address] | | | | | [phone] | [phone] | | | | | | | [...] | | | | | | [place] [address] | | | | | | [phone] | | | | | | | | +--------+ + + + + | 05/01/ | Procedure | Cardiology | | | | 2019 | visit | | | | +--------+ + + + + | 05/01/ | Office | Cardiology | Silvia, | | | 2019 | Visit | | PARISA Vernon W | | | | | | [place], | | | | | | [place] [address] | | | | | | [phone] | | | | | | | | +--------+ + + + + | 05/21/ | Implant | Cardiology | Daljit Singletary, | Remote Device | | 2019 | Monitor | | MD [address] | Interrogation | | | | | [place], | (Primary Dx); | | | | | [place] [address] | Pacemaker; | | | | | [phone] | Sinoatrial node | | | | | | dysfunction ([facility]) | | | | | | with symptomatic | | | | | | bradycardia | +--------+ + + + + documented as of this encounter Visit Diagnoses Not on filedocumented in this encounter"
--- OUTSIDE RECORDS SUMMARY | ~2020-04-15 | XMS | Encounter Summary ---
Demographics + + + | Address | [address] [place] [address] [address] | | | [place] [address] | + + + | Home Phone [...] [place] | | | | | [address] | | + + + + + Care Team Providers + +------+ + | Care Global Professional Name | Role | Phone | + +------+ + | Darion Holden DO | PCP | | + +------+ + Encounter Details +--------+ + + + + | Date | Type | Department | Care Team | Description | +--------+ + + + + | 01/22/ | Transcribe | [facility] | Transcribe | | | 2020 | Orders | [facility] [address] | Encounter, Provider, | | | | | Tremayne Crane Mailcode: | [address] | | | | | [address] [place] for | [place] [address] | | | | | [facility], | | | | | | [address] | | | | | | [place], [place] | | | | | | [address] | | | | | | [phone] | | | +--------+ + + + [...]
--- OUTSIDE RECORDS SUMMARY | ~2020-04-15 | XMS | Encounter Summary ---
Demographics + + + | Address | [address] | | | [place] [address] | + + + | Home Phone [...] | [facility] | | | and [...] Team Providers + +------+ + | Care Bookkeeper Assistant Name | Role | Phone | [...] + + | 10/23/ | Office | [facility] | Silvia, | CAD (coronary artery | | 2013 | Visit | CARDIOLOGY [address] | PARISA [place] [address] | disease) (Primary | | | | [place], | [place], | Dx); Other chest | | | | [place] [address] | [place] [address] | pain; Chest pain; | | | | [phone] | [phone] | Coronary artery | | | | [...] Sanchez Date: October 23, 2014 : 1960 Hide Tanner: Kaiely Pruitt RN Device Director Of Event Sales: [employer] Sense (mV) Impedance (?) Capture (V) Capture (ms) A Lead 2.80-4.00 407 1.500 0.09 RV Lead 22.40-31.36 519 2.000 0.09 LV Lead Battery Impedance (?): 658 Battery Voltage (V): 2.79 IA Interval (ms): 155 AR Interval (ms): 240 VA Conduction: Mode Switch Events: 1 % of time: <0.1 -PROFESSOR OF ANTHROPOLOGY: <0.1% AP-PROFESSOR OF ANTHROPOLOGY: <0.1% -VS: 13.8% AP-VS: 86.1% PROFESSOR OF ANTHROPOLOGY: Magnetic Rate: 85 LINDA: 65 LEAH: Current [...] Kailey Pruitt RN 10/23/2014 15:22 ames Janeen, STENCIL PRINTER - 10/23/2014 2:22 PM PST PATIENT NAME: [...] needed for Chest pain. 25 tablet 12 [place]-3 Fatty Acids (SALMON OIL-1000 PO) CAPS, one [...] be ruled out. D. [facility] 12/25/13, shows non critical coronary artery [...] He is i n class I-II of [place] Heart Association functional class. There are no [...] to go back in 3 days to [place] for an attempt of ablation under general [...] dizziness. He is in class I-II of [place] Heart Association functional class. There are n [...] on 06/14/[address] Daljit amsters. C. Last device interrogation on 09/2014 shows [...] this chart may have been created with [employer] voice recognition software. Occasi onal wrong-word or [...] W | | | | | | [place], | | | | | | [place] [address] | | | | | | [phone] | | | | | | | | +--------+ + + + + | 05/01/ | Procedure | Cardiology | | | | 2019 | visit | | | | +--------+ + + + + | 05/01/ | Office | Cardiology | Silvia, | | | 2019 | Visit | | PARISA Vernon [address] | | | | | | [place], | | | | | | [place] [address] | | | | | | [phone] | | | | | | | | +--------+ + + + + | 05/21/ | Implant | Cardiology | Daljit Singletary, | Remote Device | | 2019 | Monitor | | [address] [place] | Interrogation | | | | | [place], | (Primary Dx); | | | | | [place] [address] | Pacemaker; | | | | | [phone] | Sinoatrial node | | | | [...] 23, 2014 : | | | 1960 Hide Tanner: Kailey Pruitt RN Device Director Of Event Sales: | | | [employer] Sense (mV) Impedance (?) Capture (V) Capture (ms) A | | | Lead 2.80-4.00 407 1.500 0.09 RV Lead 22.40-31.36 519 2.000 0.09 | | | LV Lead Battery Impedance (?): 658 Battery Voltage (V): 2.79 | | | IA Interval (ms): 155 AR Interval (ms): 240 VA Conduction: Mode | | | Switch Events: 1 % of time: <0.1 -PROFESSOR OF ANTHROPOLOGY: <0.1% AP-PROFESSOR OF ANTHROPOLOGY: <0.1% -VS: | | | 13.8% AP-VS: 86.1% PROFESSOR OF ANTHROPOLOGY: Magnetic Rate: 85 LINDA: 65 LEAH: Current [...] | | Date: October 23, 2014DOB: 1960 Hide Tanner: Kailey Pruitt RNDevice Director Of Event Sales: | | [employer] Sense (mV) Impedance (?) Capture (V) Capture (ms) A Lead 2.80-4.00 407 1.500 | | 0.09 RV Lead 22.40-31.36 519 2.000 0.09 LV Lead Battery Impedance (?): 658 Battery | | Voltage (V): 2.79 IA Interval (ms): 155 AR Interval (ms): 240 VA Conduction: Mode | | Switch Events: 1 % of time: <0.1 -PROFESSOR OF ANTHROPOLOGY: <0.1% AP-PROFESSOR OF ANTHROPOLOGY: <0.1% -VS: 13.8% AP-VS: 86.1% PROFESSOR OF ANTHROPOLOGY: | | Magnetic Rate: 85 LINDA: 65 [...] of unspecified type | | of vessel, [place] or graft | + + | Other chest pain | + + | Chest pain Chest pain, unspecified | + + | Coronary artery disease Coronary atherosclerosis of unspecified type of vessel, | | [place] or graft | + + | Pacemaker [...]
--- OUTSIDE RECORDS SUMMARY | ~2020-04-15 | XMS | Encounter Summary ---
Demographics + + + | Address | [address] | | | [place] [address] | + + + | Home Phone [...] Providers + +------+ + | Care Pump Room Operator Name | Role | Phone [...] | | | | CENTER [address] | [place], [place] | insufficiency | | | | [place], [place] | [address] | | | | | [address] | | | | | | [phone] | | | +--------+ + + + [...] sent through Care Everywhere.PERIPHERAL KENYETTA A, BILATERAL (CZECH)documented in this encounter Medications at Time of [...] + + +---------+ + + | [place]-3 Fatty | CAPS, one capsule by | [...] | | | | | | | #[id number], exp 07/2016 | | | | | [...] | | | | | | [place] [address] | | | | | | [phone] | | | | | | | | +--------+ + + + + | 05/01/ | Procedure | Cardiology | | | | 2019 | visit | | | | +--------+ + + + + | 05/01/ | Office | Cardiology | Silvia, | | | 2019 | Visit | | PARISA [place] [address] | | | | | | [place], | | | | | | [place] [address] | | | | | | [phone] | | | | | | | | +--------+ + + + + | 05/21/ | Implant | Cardiology | Daljit Singletary, | Remote Device | | 2019 | Monitor | | [address] | Interrogation | | | | | [place], | (Primary Dx); | | | | | [place] [address] | Pacemaker; | | | | | [phone] | Sinoatrial node | | | | [...]
--- OUTSIDE RECORDS SUMMARY | ~2020-04-15 | XMS | Encounter Summary ---
Demographics + + + | Address | [address] | | | [place] [address] | + + + | Home Phone [...] Team Providers + +------+ + | Care Carbonation Equipment Tender Name | Role | Phone [...] | disease involving | | | | [place], | [place], | [place] coronary | | | | [place] [address] | [place] [address] | artery of [place] | | | | [phone] | [phone] | heart without angina | | | [...] W | | | | | | [place], | | | | | | [place] [address] | | | | | | [phone] | | | | | | | | +--------+ + + + + | 05/01/ | Procedure | Cardiology | | | | 2019 | visit | | | | +--------+ + + + + | 05/01/ | Office | Cardiology | Silvia, | | | 2019 | Visit | | PARISA Vernon [address] | | | | | | [place], | | | | | | [place] [address] | | | | | | [phone] | | | | | | | | +--------+ + + + + | 05/21/ | Implant | Cardiology | AnshujohnsoncherelleShaistapawanotto, | Remote Device | | 2019 | Monitor | | MD [facility] | Interrogation | | | | | [place], | (Primary Dx); | | | | | [place] [address] | Pacemaker; | | | | | [phone] | Sinoatrial node | | | | [...] MD | | | | | | ([id number]) on 06/23/2016 | | | | | [...] | Coronary artery disease involving [place] coronary artery of [place] heart without | | angina pectoris - Primary | + + | Essential hypertension with goal blood pressure less than 130/80 | + + documented in this encounter"
--- OUTSIDE RECORDS SUMMARY | ~2020-04-15 | XMS | Encounter Summary ---
Demographics + + + | Address | [address] | | | [place] [address] | + + + | Home Phone [...] [place], | | | | | | [place] [address] | | | | | | [phone] | | | +--------+ + + + [...] | | | | | | [place] [address] | | | | | | [phone] | | | | | | | | +--------+ + + + + | 05/01/ | Procedure | Cardiology | | | | 2019 | visit | | | | +--------+ + + + + | 05/01/ | Office | Cardiology | Silvia, | | | 2019 | Visit | | PARISA Vernon [address] | | | | | | [place], | | | | | | [place] [address] | | | | | | [phone] | | | | | | | | +--------+ + + + + | 05/21/ | Implant | Cardiology | Daljit Singletary, | Remote Device | 2019 | Monitor | | [address] [facility] | Interrogation | | | | | [place], | (Primary Dx); | | | | | [place] [address] | Pacemaker; | | | | | [phone] | Sinoatrial node | | | | | | dysfunction (HCC) | | | | | | with symptomatic | | | | | | bradycardia | +--------+ + + + + documented as of this encounter Visit Diagnoses Not on filedocumented in this encounter"
--- OUTSIDE RECORDS SUMMARY | ~2020-04-15 | XMS | Encounter Summary ---
Demographics + + + | Address | [address] | | | [place] [address] | + + + | Home Phone [...] Providers + +------+ + | Care Lockstitch Hemmer Name | Role | Phone | + [...] + | 12/23/ | Telephone | [facility] | [place]via, | Lab Order (due for | | 2017 | | CARDIOLOGY [address] | Janeen, FIELD TRAINING MANAGER [address] | fasting labs) | | | | [place], | [place], | | | | | [place] [address] | [place] [address] | | | | | [phone] | [phone] | | | | | | | [...] | | | | | | [place] [address] | | | | | | [phone] | | | | | | | | +--------+ + + + + | 05/01/ | Procedure | Cardiology | | | | 2019 | visit | | | | +--------+ + + + + | 05/01/ | Office | Cardiology | Silvia, | | | 2019 | Visit | | PARISA Vernon [address] | | | | | | [place], | | | | | | [place] [address] | | | | | | [phone] | | | | | | | | +--------+ + + + + | 05/21/ | Implant | Cardiology | Daljit Singletary, | Remote Device | | 2019 | Monitor | | [address] [facility] | Interrogation | | | | | [place], | (Primary Dx); | | | | | [place] [address] | Pacemaker; | | | | | [phone] | Sinoatrial node | | | | | | dysfunction (HCC) | | | | | | with symptomatic | | | | | | bradycardia | +--------+ + + + + documented as of this encounter Visit Diagnoses Not on filedocumented in this encounter"
--- OUTSIDE RECORDS SUMMARY | ~2020-04-15 | XMS | Encounter Summary ---
Demographics + + + | Address | [address] | | | [place] [address] | + + + | Home Phone [...] unspecified | [address] | | | | | type | [address] | [place], | | | | | Procedures | [place], | [place] | | | | | [place] | [place] [address] | [address] | | | | | Stress Test | Phone: | Phone: | | | | | (Vasodilator | [phone] | [phone] | | | | | ) CHG | Fax: | Fax: | | | | | MYOCARDIAL | [phone] | [phone] | | | | | SPECT | | | | | | | MULTIPLE | | | | | | | STUDIES IA | | | | | | | CV STRS TST | | | | | | | XERS&/OR RX | | | | | | | CONT ECG W/O | | | | | | | I&R IA | | | | | | [...] | type | [address] | [address] | | | | | Procedures | [place] | [place], | | | | | FUP | [place] | [place] [address] | | | | | | [address] | Phone: | | | | | | Phone: | [phone] | | | | | | [phone] | Fax: | | | | | | Fax: | [phone] | | | | | | [phone] | | +--------+ + + + + + Encounter Details +--------+---------+ + + + | Date | Type | Department | Care Team | Description | +--------+---------+ + + + | 06/27/ | Office | [facility] | Sydni Singletary, | Pacemaker | | 2017 | Visit | CARDIOLOGY [address] | [address] [facility] | reprogramming/check | | | | [address], | [place], | DO NOT DELETE | | | | [place] [address] | [place] [address] | (Primary Dx); Chest | | | | [phone] | [phone] | pain, unspecified | | | | [...] of Service: 06/27/2018 HISTORY OF PRESENT ILLNESS: oMe Sanchez is a 58 y.o. male with [...] that time, patient has been seen at [facility] department on 018 for chest pain [...] every evening 90 tablet 0 [facility] [...] 3RD DOSE, CALL 911 100 tablet 3 [place]-3 Fatty Acids (SALMON OIL-1000 PO) CAPS, one [...] by Dr. Gambino at [facility] on 01/30/2013. Patient had spontaneous PVCs from [...] to go back in 3 days to [place] for an attempt of ablation under general [...] PVCs. 2. Non-critical Coronary artery disease involving [place] coronary artery of [place] heart [facility] angina pectoris: A. Normal exercise sestamibi stress test on 05/25/09. [facility] by [facility] ed SPECT was 53%. B. Echocardiogram [...] He is in a class I of [place] Heart Association functiona l class. There is [...] reviewed and edited this note. Allyson Curtis, Nuclear Medicine Supervisor 06/27/2018 I, Sydni Singletary MD, personally performed the services described in this documentation, as scribed in my presence and it is both accurate and complete. Allyson Curtis, Med Ass t 06/27/2018 14:15 Electronically signed by: Sydni Singletary MD [facility] 06/27/2018 Portions of this chart may have been created with [employer] voice recognition software. Occasi onal wrong-word or [...] | | | | | | [place] [address] | | | | | | [phone] | | | | | | | [...] | | | | | | [place] [address] | | | | | | [phone] | | | | | | | | +--------+ + + + + | 05/21/ | Implant | Cardiology | Sydni Singletary, | Remote Device | 2019 | Monitor | | [address] | Interrogation | | | | | [place], | (Primary Dx); | | | | | [place] [address] | Pacemaker; | | | | | [phone] | Sinoatrial node | | | | [...] SYDNI | | | | | | ([id number]) on 06/27/2018 | | | | | [...]
--- OUTSIDE RECORDS SUMMARY | ~2020-04-15 | XMS | Encounter Summary ---
Demographics + + + | Address | [address] | | | [place] [address] | + + + | Home Phone [...] Providers + +------+ + | Care Marketing Programs Manager Name | Role | Phone | + +------+ + PCP | Unavailable | + +------+ + Encounter Details +--------+ + + + + | Date | Type | Department | Care Team | Description | +--------+ + + + + | 01/20/ | [facility] | [facility] | Geri Angel, | | | 2009 | Encounter | MED CTR GENERIC OP | WHEAT GROWER [address] | | | | | CONV DEPT [address] | [place] | | | | | [place], | [id number] | | | | | [place] [address] | | | | | | [phone] | | | +--------+ + + + [...] W | | | | | | [place], | | | | | | [place] [address] | | | | | | [phone] | | | | | | | | +--------+ + + + + | 05/01/ | Procedure | Cardiology | | | | 2019 | visit | | | | +--------+ + + + + | 05/01/ | Office | Cardiology | Silvia, | | | 2019 | Visit | | PARISA Vernon [address] | | | | | | [place], | | | | | | [place] [address] | | | | | | [phone] | | | | | | | | +--------+ + + + + | 05/21/ | Implant | Cardiology | Daljit Singletary, | Remote Device | 2019 | Monitor | | [address] [place] | Interrogation | | | | | [place], | (Primary Dx); | | | | | [place] [address] | Pacemaker; | | | | | [phone] | Sinoatrial node | | | | | | dysfunction (HCC) | | | | | | with symptomatic | | | | | | bradycardia | +--------+ + + + + documented as of this encounter Visit Diagnoses Not on filedocumented in this encounter"
--- OUTSIDE RECORDS SUMMARY | ~2020-04-15 | XMS | Encounter Summary ---
Demographics + + + | Address | [address] | | | [place] [address] | + + + | Home Phone [...] + +------+ + | Care Public Health Representative Name | Role | Phone | [...] visit | CARDIOLOGY [address] | [address] [place] | reprogramming/check | | | | [place], | [place], | DO NOT DELETE | | | | [place] [address] | [place] [address] | (Primary Dx); | | | | [phone] | [phone] | Sinoatrial node | | | | [...] | | | | | | [place] [address] | | | | | | [phone] | | | | | | | | +--------+ + + + + | 05/01/ | Procedure | Cardiology | | | | 2019 | visit | | | | +--------+ + + + + | 05/01/ | Office | Cardiology | Silvia | | | 2019 | Visit | | PARISA [place] [address] | | | | | | [place], | | | | | | [place] [address] | | | | | | [phone] | | | | | | | | +--------+ + + + + | 05/21/ | Implant | Cardiology | Daljit Singletary, | Remote Device | | 2019 | Monitor | | [address] [place] | Interrogation | | | | | [place], | (Primary Dx); | | | | | [place] [address] | Pacemaker; | | | | | [phone] | Sinoatrial node | | | | [...]
--- OUTSIDE RECORDS SUMMARY | ~2020-04-15 | XMS | Encounter Summary ---
Demographics + + + | Address | [address] | | | [place] [address] | + + + | Home Phone [...] Providers + +------+ + | Care Pan Pusher Name | Role | Phone | [...] 2016 | | CARDIOLOGY [address] | LABORER MINE [address] [place] | | | | | [place], | [place], [place] | | | | | [place] [address] | [address] | | | | | [phone] | | | +--------+--------+ + + + [...] | | | | | | [place], | | | | | | [place] [address] | | | | | | [phone] | | | | | | | | +--------+ + + + + | 05/01/ | Procedure | Cardiology | | | | 2019 | visit | | | | +--------+ + + + + | 05/01/ | Office | Cardiology | Silvia, | | | 2019 | Visit | | PARISA Vernon [address] | | | | | | [place], | | | | | | [place] [address] | | | | | | [phone] | | | | | | | | +--------+ + + + + | 05/21/ | Implant | Cardiology | Daljit Singletary, | Remote Device | | 2019 | Monitor | | [address] [facility] [place] | Interrogation | | | | | [place], | (Primary Dx); | | | | | [place] [address] | Pacemaker; | | | | | [phone] | Sinoatrial node | | | | | | dysfunction (HCC) | | | | | | with symptomatic | | | | | | bradycardia | +--------+ + + + + documented as of this encounter Visit Diagnoses Not on filedocumented in this encounter"
--- OUTSIDE RECORDS SUMMARY | ~2020-04-15 | XMS | Encounter Summary ---
Demographics + + + | Address | [address] | | | [place] [address] | + + + | Home Phone [...] Providers + +------+ + | Care Milk And Cream Grader Name | Role | Phone | [...] | on | GASTROENTEROLOGY | [address], [place] | | | | | [address] [place] | [address] [place], [place] | | | | | [address] [place], [place] | [address] | | | | | [address] | | | | | | [phone] | | | +--------+ + + + [...] | | | | | | [place] [address] | | | | | | [phone] | | | | | | | | +--------+ + + + + | 05/01/ | Procedure | Cardiology | | | | 2019 | visit | | | | +--------+ + + + + | 05/01/ | Office | Cardiology | Silvia, | | | 2019 | Visit | | PARISA [place] [address] | | | | | | [place], | | | | | | [place] [address] | | | | | | [phone] | | | | | | | | +--------+ + + + + | 05/21/ | Implant | Cardiology | Daljit Singletary, | Remote Device | | 2019 | Monitor | | [address] [facility] | Interrogation | | | | | [place], | (Primary Dx); | | | | | [place] [address] | Pacemaker; | | | | | [phone] | Sinoatrial node | | | | | | dysfunction (HCC) | | | | | | with symptomatic | | | | | | bradycardia | +--------+ + + + + documented as of this encounter Visit Diagnoses Not on filedocumented in this encounter"
--- OUTSIDE RECORDS SUMMARY | ~2020-04-15 | XMS | Encounter Summary ---
Demographics + + + | Address | [address] | | | [place] [address] | + + + | Home Phone [...] Refill | | 2012 | | MEDICINE [facility] | DO [address] | | | | | [address] | [place] | | | | | [place] | [address] | | | | | [address] | | | | | | [phone] | | | +--------+--------+ + + + [...] W | | | | | | [place], | | | | | | [place] [address] | | | | | | [phone] | | | | | | | | +--------+ + + + + | 05/01/ | Procedure | Cardiology | | | | 2019 | visit | | | | +--------+ + + + + | 05/01/ | Office | Cardiology | Silvia, | | | 2019 | Visit | | [address]ISA [address] W | | | | | | [place], | | | | | | [place] [address] | | | | | | [phone] | | | | | | | | +--------+ + + + + | 05/21/ | Implant | Cardiology | Daljit Singletary, | Remote Device | | 2019 | Monitor | | [facility] | Interrogation | | | | | [place], | (Primary Dx); | | | | | [place] [address] | Pacemaker; | | | | | [phone] | Sinoatrial node | | | | | | dysfunction (HCC) | | | | | | with symptomatic | | | | | | bradycardia | +--------+ + + + + documented as of this encounter Visit Diagnoses Not on filedocumented in this encounter"
--- OUTSIDE RECORDS SUMMARY | ~2020-04-15 | XMS | Encounter Summary ---
Demographics + + + | Address | [address] | | | [place] [address] | + + + | Home Phone [...] Providers + +------+ + | Care Pst Supervisor Name | Role | Phone | + +------+ + | Michael Amanda DO | PCP | | + +------+ + Encounter Details +--------+ + + + + | Date | Type | Department | Care Team | Description | +--------+ + + + + | 12/25/ | Hospital | [facility] | Daljit Singletary, | | | 2013 | Encounter | MED CTR XRAY [address] | | | | | [place] | [place], | | | | | [place] [address] | [place] [address] | | | | | [phone] | [phone] | | | | | | | [...] + + + +---------+ + + | [place]-3 Fatty | CAPS, one capsule by | [...] | | | | | | [place] [address] | | | | | | [phone] | | | | | | | [...] | | | | | | [place] [address] | | | | | | [phone] | | | | | | | | +--------+ + + + + | 05/21/ | Implant | Cardiology | Daljit Singletary, | Remote Device | | 2019 | Monitor | | [address] | Interrogation | | | | | [place], | (Primary Dx); | | | | | [place] [address] | Pacemaker; | | | | | [phone] | Sinoatrial node | | | | [...] [facility] | [place] | | Department [address] [place] [address] | [facility] | | [ rep [address]] [ rep [facility] | | st zip] Signed | - IMAGING | | | | | Patient Name: MOE GAY | | | Physician: MIGUELINA : 1960 Age: 53 Sex: M Unit | | | #: [id number] Exam Date: 12/25/13 Location: | | | SDS SDS-D Report #: [id number] Page: | | | %(RAD)RES..mtdd.print.filter("pg") of %(RAD) | | | RES..mtdd.print.filter("tpg") | | | | | | Accession Number: [id number] | | | LEFT HEART CATHETERIZATION, 12/25/2013 [...] the patient was taken to the cardiac clay processing labourer. She | | | was prepared and draped in the usual fashion. Under sterile | | | technique and local anesthesia, percutaneous access was obtained | | | using #5 Iranian sheath in the right radial artery. Right heart cath | | | was not performed on this patient. Left ventriculography was | | | performed using #5 multipurpose diagnostic catheter. The selective | | | coronary angiography was then performed in several sagittal and | | | oblique projections using #5 multipurpose and #5 Iranian JL 3.5 | | | diagnostic catheters. [...] Transcribed | | | Date/Time: 12/25/2013 11:52 Financial Services Officer: | | | <<Signature on File>> | | | Daljit | | | MD [facility] FAS12/25/13 1343 <Electronically signed by | | | Daljit Singletary MD, [facility], FACP, ADELINE, YEN> Daljit | | | MD [facility] ADELINE 12/25/13 1035 Financial Services Officer: Jessica | | | Tadicedizoyrb34/03/14 1152 | | + + + + + + + + | Performing | Address | City/State/Zipcode | Phone Number | | Organization | | | | + + + + + | [facility] | [address] | [place] | [phone] | | [facility] | | [address] | | | - IMAGING | | | | + + + + + documented in this encounter Visit Diagnoses Not on filedocumented in this encounter
--- OUTSIDE RECORDS SUMMARY | ~2020-04-15 | XMS | Encounter Summary ---
Demographics + + + | Address | [address] | | | [place] [address] | + + + | Home Phone [...] +------+ + | Care Social Media Marketing Analyst Name | Role | Phone [...] [place] | | | | | | [address] | | | | | | [phone] | | | +--------+ + + + [...] + + + +---------+ + + | [place]-3 Fatty | CAPS, one capsule by | [...] | | | | | | [place] [address] | | | | | | [phone] | | | | | | | | +--------+ + + + + | 05/01/ | Procedure | Cardiology | | | | 2019 | visit | | | | +--------+ + + + + | 05/01/ | Office | Cardiology | Silvia, | | | 2019 | Visit | | PARISA [place] [address] | | | | | | [place], | | | | | | [place] [address] | | | | | | [phone] | | | | | | | | +--------+ + + + + | 05/21/ | Implant | Cardiology | Daljit Singletary, | Remote Device | 2019 | Monitor | | [facility] | Interrogation | | | | | [place], | (Primary Dx); | | | | | [place] [address] | Pacemaker; | | | | | [phone] | Sinoatrial node | | | | [...]
--- OUTSIDE RECORDS SUMMARY | ~2020-04-15 | XMS | Encounter Summary ---
Demographics + + + | Address | [address] | | | [place] [address] | + + + | Home Phone [...] [address] | | | | | [place], | [place], | | | | | [place] [address] | [place] [address] | | | | | [phone] | [phone] | | | | | | | [...] | | | | | | [place] [address] | | | | | | [phone] | | | | | | | [...] | | | | | | [place] [address] | | | | | | [phone] | | | | | | | | +--------+ + + + + | 05/21/ | Implant | Cardiology | Daljit Singletary, | Remote Device | 2019 | Monitor | | MD [address] [place] | Interrogation | | | | | [place], | (Primary Dx); | | | | | [place] [address] | Pacemaker; | | | | | [phone] | Sinoatrial node | | | | [...] Resulting Agency Comment | + + | [facility] | [...] Resulting Agency Comment | + + | [facility] | + + + [...] Resulting Agency Comment | + + | [facility] | [...] Resulting Agency Comment | + + | [facility] | + + + [...] Resulting Agency Comment | + + | [facility] | + + + +---------+ + [...] Resulting Agency Comment | + + | [facility] | [...] Agency Comment | + + | [facility] | + + + +---------+ + + [...] Resulting Agency Comment | + + | [facility] | + + + +---------+ [...] Resulting Agency Comment | + + | [facility] | [...] Resulting Agency Comment | + + | [facility] | + + + +---------+ [...] Resulting Agency Comment | + + | [facility] | + + + +---------+ [...] Resulting Agency Comment | + + | [facility] | [...] Resulting Agency Comment | + + | [facility] | + + + +---------+ + [...] Agency Comment | + + | [facility] | + + + +---------+ + + [...] Resulting Agency Comment | + + | [facility] | [...] Agency Comment | + + | [facility] | + + + +---------+ + + [...] Resulting Agency Comment | + + | [facility] | [...] Resulting Agency Comment | + + | [facility] | + + + [...] Resulting Agency Comment | + + | [facility] | [...]
--- OUTSIDE RECORDS SUMMARY | ~2020-04-15 | XMS | Encounter Summary ---
Demographics + + + | Address | [address] | | | [place] [address] | + + + | Home Phone [...] + +------+ + | Care Food Services Coordinator Name | Role | Phone [...] | CARDIOLOGY [address] | [address] [place] | (Primary Dx); | | | | [place], | [place], | Tachycardia; | | | | [place] [address] | [place] [address] | Coronary artery | | | | [phone] | [phone] | disease involving | | | | [...] | | | | | | [place] [address] | | | | | | [phone] | | | | | | | | +--------+ + + + + | 05/01/ | Procedure | Cardiology | | | | 2019 | visit | | | | +--------+ + + + + | 05/01/ | Office | Cardiology | Silvia, | | | 2019 | Visit | | PARISA [address] | | | | | | [place], | | | | | | [place] [address] | | | | | | [phone] | | | | | | | | +--------+ + + + + | 05/21/ | Implant | Cardiology | Daljit Singletary, | Remote Device | 2019 | Monitor | | [facility] | Interrogation | | | | | [place], | (Primary Dx); | | | | | [place] [address] | Pacemaker; | | | | | [phone] | Sinoatrial node | | | | [...] DALJIT | | | | | | ([id number]) on 06/29/2018 | | | | | [...]
--- OUTSIDE RECORDS SUMMARY | ~2020-04-15 | XMS | Encounter Summary ---
Demographics + + + | Address | [address] | | | [place] [address] | + + + | Home Phone [...] Providers + +------+ + | Care Retort Load Expediter Name | Role | Phone | [...] | | | | [place] | | [address] Phone: | | | | | CYSTO/URETER | | [phone] | | | | | O | | Fax: | | | | | W/LITHOTRIPS | | [phone] | | | | | Y &INDWELL [...] | | | | | [address] | [place] | | | | | [place] | [address] | | | | | [address] | | | | | | [phone] | | | +--------+ + + + [...] +----+---+ + + | | 0 | [place] | | | | 8 | 43-degrees | | | | 2 | | | | | 7 | | | +----+---+ + + | | 0 | First | | | | 8 | Inc[address]Proc St | | | | 2 | | | | | 8 | | | +----+---+ + + | | 0 | [place] off | | | | 9 | [...] 04/13/19 1219 by | | eral | [id number] catheter system; | Dominga Steen RN | [...] | | | | | | [place] [address] | | | | | | [phone] | | | | | | | | +--------+ + + + + | 05/01/ | Procedure | Cardiology | | | | 2019 | visit | | | | +--------+ + + + + | 05/01/ | Office | Cardiology | Silvia, | | | 2019 | Visit | | PARISA Vernon [address] | | | | | | [place], | | | | | | [place] [address] | | | | | | [phone] | | | | | | | | +--------+ + + + + | 05/21/ | Implant | Cardiology | Daljit Singletary, | Remote Device | | 2019 | Monitor | | MD [address] | Interrogation | | | | | [place], | (Primary Dx); | | | | | [place] [address] | Pacemaker; | | | | | [phone] | Sinoatrial node | | | | [...]
--- OUTSIDE RECORDS SUMMARY | ~2020-04-15 | XMS | Encounter Summary ---
Demographics + + + | Address | [address] | | | [place] [address] | + + + | Home Phone [...] + +------+ + | Care Vice President Sales Name | Role | Phone | [...] Refill | | 2013 | | [facility] | DO [address] | | | | | [address] | [place] | | | | | [place] | [address] | | | | | [address] | | | | | | [phone] | | | +--------+--------+ + + + [...] W | | | | | | [place], | | | | | | [place] [address] | | | | | | [phone] | | | | | | | | +--------+ + + + + | 05/01/ | Procedure | Cardiology | | | | 2019 | visit | | | | +--------+ + + + + | 05/01/ | Office | Cardiology | Silvia, | | | 2019 | Visit | | [address] | | | | | | [place], | | | | | | [place] [address] | | | | | | [phone] | | | | | | | | +--------+ + + + + | 05/21/ | Implant | Cardiology | Daljit Singletary, | Remote Device | | 2019 | Monitor | | [facility] | Interrogation | | | | | [place], | (Primary Dx); | | | | | [place] [address] | Pacemaker; | | | | | [phone] | Sinoatrial node | | | | | | dysfunction (HCC) | | | | | | with symptomatic | | | | | | bradycardia | +--------+ + + + + documented as of this encounter Visit Diagnoses Not on filedocumented in this encounter"
--- OUTSIDE RECORDS SUMMARY | ~2020-04-15 | XMS | Encounter Summary ---
Demographics + + + | Address | [address] | | | [place] [address] | + + + | Home Phone [...] + +------+ + | Care Filling Station Attendant Name | Role | Phone | + +------+ + PCP | Unavailable | + +------+ + Encounter Details +--------+ + + + + | Date | Type | Department | Care Team | Description | +--------+ + + + + | 01/20/ | [facility] | [facility] | Geri Angel, | | | 2009 | Encounter | MED CTR GENERIC OP | WAREHOUSE GENERAL LABORER [address] [place] | | | | | CONV DEPT [address] | [address] [place] | | | | | [place], | [id number] | | | | | [place] [address] | | | | | | [phone] | | | +--------+ + + + [...] W | | | | | | [place], | | | | | | [place] [address] | | | | | | [phone] | | | | | | | | +--------+ + + + + | 05/01/ | Procedure | Cardiology | | | | 2019 | visit | | | | +--------+ + + + + | 05/01/ | Office | Cardiology | Silvia, | | | 2019 | Visit | | [address] | | | | | | [place], | | | | | | [place] [address] | | | | | | [phone] | | | | | | | | +--------+ + + + + | 05/21/ | Implant | Cardiology | Daljit Singletary, | Remote Device | 2019 | Monitor | | [address] [place] | Interrogation | | | | | [place], | (Primary Dx); | | | | | [place] [address] | Pacemaker; | | | | | [phone] | Sinoatrial node | | | | | | dysfunction (HCC) | | | | | | with symptomatic | | | | | | bradycardia | +--------+ + + + + documented as of this encounter Visit Diagnoses Not on filedocumented in this encounter"
--- OUTSIDE RECORDS SUMMARY | ~2020-04-15 | XMS | Encounter Summary ---
Demographics + + + | Address | [address] | | | [place] [address] | + + + | Home Phone [...] Providers + +------+ + | Care Instructor Technical Training Name | Role | Phone | [...] | 01/05/ | Telephone | [facility] [place] | Emmanuel Daniel MD | Other | | 2019 | | GASTROENTEROLOGY | [address], [place] | | | | | [address] [place] | [address] [place], [place] | | | | | [address] [place], [place] | [address] | | | | | [address] | | | | | | [phone] | | | +--------+ + + + [...] | | | | | | [place] [address] | | | | | | [phone] | | | | | | | | +--------+ + + + + | 05/01/ | Procedure | Cardiology | | | | 2019 | visit | | | | +--------+ + + + + | 05/01/ | Office | Cardiology | Silvia, | | | 2019 | Visit | | [address] | | | | | | [place], | | | | | | [place] [address] | | | | | | [phone] | | | | | | | | +--------+ + + + + | 05/21/ | Implant | Cardiology | Daljit Singletary, | Remote Device | | 2019 | Monitor | | [facility] | Interrogation | | | | | [place], | (Primary Dx); | | | | | [place] [address] | Pacemaker; | | | | | [phone] | Sinoatrial node | | | | | | dysfunction (HCC) | | | | | | with symptomatic | | | | | | bradycardia | +--------+ + + + + documented as of this encounter Visit Diagnoses Not on filedocumented in this encounter"
--- OUTSIDE RECORDS SUMMARY | ~2020-04-15 | XMS | Encounter Summary ---
Demographics + + + | Address | [address] | | | [place] [address] | + + + | Home Phone [...] | | CARDIOLOGY [address] | Janeen, NETWORK DEVELOPER [address] | Clearance) | | | | [place], | [place], | | | | | [place] [address] | [place] [address] | | | | | [phone] | [phone] | | | | | | | [...] | | | | | | [place] [address] | | | | | | [phone] | | | | | | | | +--------+ + + + + | 05/01/ | Procedure | Cardiology | | | | 2019 | visit | | | | +--------+ + + + + | 05/01/ | Office | Cardiology | Silvia, | | | 2019 | Visit | | [address] [address] | | | | | | [place], | | | | | | [place] [address] | | | | | | [phone] | | | | | | | | +--------+ + + + + | 05/21/ | Implant | Cardiology | Daljit Singletary, | Remote Device | 2019 | Monitor | | [address] [facility] | Interrogation | | | | | [place], | (Primary Dx); | | | | | [place] [address] | Pacemaker; | | | | | [phone] | Sinoatrial node | | | | | | dysfunction (HCC) | | | | | | with symptomatic | | | | | | bradycardia | +--------+ + + + + documented as of this encounter Visit Diagnoses Not on filedocumented in this encounter"
--- OUTSIDE RECORDS SUMMARY | ~2020-04-15 | XMS | Encounter Summary ---
Demographics + + + | Address | [address] | | | [place] [address] | + + + | Home Phone [...] Providers + +------+ + | Care Mammography Supervisor Name | Role | Phone | [...] + + | 08/14/ | Telephone | [facility] | Michael Amanda, | Appointment | | 2012 | | [facility] [address] | DO [address] | | | | | [facility] | [place] | | | | | [place], [place] | [address] | | | | | [address] | | | | | | [phone] | | | +--------+ + + + [...] W | | | | | | [place], | | | | | | [place] [address] | | | | | | [phone] | | | | | | | | +--------+ + + + + | 05/01/ | Procedure | Cardiology | | | | 2019 | visit | | | | +--------+ + + + + | 05/01/ | Office | Cardiology | Silvia, | | | 2019 | Visit | | [address] | | | | | | [place], | | | | | | [place] [address] | | | | | | [phone] | | | | | | | | +--------+ + + + + | 05/21/ | Implant | Cardiology | Daljit Singletary, | Remote Device | 2019 | Monitor | | MD [place] | Interrogation | | | | | [place], | (Primary Dx); | | | | | [place] [address] | Pacemaker; | | | | | [phone] | Sinoatrial node | | | | | | dysfunction (HCC) | | | | | | with symptomatic | | | | | | bradycardia | +--------+ + + + + documented as of this encounter Visit Diagnoses Not on filedocumented in this encounter"
--- OUTSIDE RECORDS SUMMARY | ~2020-04-15 | XMS | Encounter Summary ---
Demographics + + + | Address | [address] | | | [place] [address] | + + + | Home Phone [...] + + | 11/16/ | Hospital | [facility] | Kirk French | Aneurysm (HCC) | | 2017 | Encounter | MED CTR ULTRASOUND | D, MD [address] | | | | | [address] [place] | [address] | | | | | [place], [place] | [place] [address] | | | | | [address] | [phone] | | | | | [phone] | | | | | | | [...] + + + +---------+ + + | [place]-3 Fatty | CAPS, one capsule by | [...] W | | | | | | [place], | | | | | | [place] [address] | | | | | | [phone] | | | | | | | | +--------+ + + + + | 05/01/ | Procedure | Cardiology | | | | 2019 | visit | | | | +--------+ + + + + | 05/01/ | Office | Cardiology | Silvia, | | | 2019 | Visit | | [address] | | | | | | [place], | | | | | | [place] [address] | | | | | | [phone] | | | | | | | | +--------+ + + + + | 05/21/ | Implant | Cardiology | Daljit Singletary, | Remote Device | | 2020 | Monitor | | [facility] | Interrogation | | | | | [place], | (Primary Dx); | | | | | [place] [address] | Pacemaker; | | | | | [phone] | Sinoatrial node | | | | [...] Screening | Imaging | Routin | Aneurysm ([facility]) | 1 Occurrences | | | | e | | starting 11/16/2017 | | | | | | until 11/16/2017 | + +---------+--------+ + + documented as of this encounter Visit Diagnoses + + | Diagnosis | + + | Aneurysm (HCC) Aneurysm of unspecified site | + + documented in this encounter"
--- OUTSIDE RECORDS SUMMARY | ~2020-04-15 | XMS | Encounter Summary ---
Demographics + + + | Address | [address] | | | [place] [address] | + + + | Home Phone [...] Providers + +------+ + | Care Hospice Nurse Practitioner Name | Role | Phone [...] [address] | | | | | [place] | [address] [place] | | | | | [address] | [address] | | | | | [phone] | | | +--------+ + + + [...] | | | | | | [place], | | | | | | [place] [address] | | | | | | [phone] | | | | | | | [...] | | | | | | [place] [address] | | | | | | [phone] | | | | | | | | +--------+ + + + + | 05/21/ | Implant | Cardiology | Daljit Singletary, | Remote Device | 2019 | Monitor | | [address] | Interrogation | | | | | [place], | (Primary Dx); | | | | | [place] [address] | Pacemaker; | | | | | [phone] | Sinoatrial node | | | | | | dysfunction (HCC) | | | | | | with symptomatic | | | | | | bradycardia | +--------+ + + + + documented as of this encounter Visit Diagnoses Not on filedocumented in this encounter"
--- OUTSIDE RECORDS SUMMARY | ~2020-04-15 | XMS | Encounter Summary ---
Demographics + + + | Address | [address] | | | [place] [address] | + + + | Home Phone [...] Team Providers + +------+ + | Care Coiler Name | Role | Phone | + [...] | | | | CENTER [address] | [address] | (Primary Dx) | | | | [place], [place] | [place], [place] | | | | | [address] | [address] | | | | | [phone] | | | +--------+ + + + [...] | | | | | | [place] [address] | | | | | | [phone] | | | | | | | | +--------+ + + + + | 05/01/ | Procedure | Cardiology | | | | 2019 | visit | | | | +--------+ + + + + | 05/01/ | Office | Cardiology | Silvia, | | | 2019 | Visit | | [address] | | | | | | [place], | | | | | | [place] [address] | | | | | | [phone] | | | | | | | | +--------+ + + + + | 05/21/ | Implant | Cardiology | Sydni Singletary, | Remote Device | 2019 | Monitor | | [address] [facility] | Interrogation | | | | | [address] [place], | (Primary Dx); | | | | | [place] [address] | Pacemaker; | | | | | [phone] | Sinoatrial node | | | | [...] W?MRN: | | | | | | [id number] | | | [id number] | | | his | | | [...] | | | ent/60 | | | [id number] | | | -5586- | | | [...] | | | St. | | | [place] | | | y | | | [...] | | | ext. | | | [address] | | | or go | | [...] | | | M.D. | | | Field Case Manager | | | al | | [...] + | [facility] | [address] | [place] | [phone] | | [facility] | | [address] | | | - LABORATORY | | [...] + | [facility] | [address] | [place] | [phone] | | [facility] | | [address] | | | - LABORATORY | | [...] | + + + + + | [facility] | [address] | [place] | [phone] | | [facility] | | [address] | | | - LABORATORY | | [...] 16 | 7 - 18 mg/dL | [place] | | | | | | [facility] | | | | | | MEDICAL | | | | | | CENTER - | | | | | | LABORATORY | | + + + + + + | Creatinine | 0.82 | 0.60 - 1.30 | [place] | | | | | mg/dL | [facility] | | | | | | MEDICAL | | | | | | CENTER - | | | | | | LABORATORY | | + + + + + + | eGFR if not | >60Comment: GLOMERULAR | >=60 | [place] | | | | FILTRATION | mL/min/1.73m2 | [facility] | | | TUR[employer] AND [employer]IC[place] ISLANDER | RATE,ESTIMATED | | MEDICAL | | | | mL/min/1.59u1Aeqk than | | CENTER - | | [...] [address] | [place] | [phone] | | [facility] | | [address] | | | - LABORATORY | | [...] [address] | [place] | [phone] | | [facility] | | [address] | | | - LABORATORY | | [...] [address] | [place] | [phone] | | [facility] | | [address] | | | - LABORATORY | | [...] SYDNI | | | | | | ([phone]) on 06/22/2018 | | | | | [...]
--- OUTSIDE RECORDS SUMMARY | ~2020-04-15 | XMS | Encounter Summary ---
Demographics + + + | Address | [address] | | | [place] [address] | + + + | Home Phone [...] Providers + +------+ + | Care Grinder Carbon Plant Name | Role | Phone | + +------+ + PCP | Unavailable | + +------+ + Encounter Details +--------+ + + + + | Date | Type | Department | Care Team | Description | +--------+ + + + + | 08/26/ | Hospital | [facility] | | | | 2009 | Encounter | MED CTR LABORATORY | | | | | | [address] | | | | | | [place] | | | | | | [address] | | | | | | [phone] | | | +--------+ + + + [...] | | | | | | [place] [address] | | | | | | [phone] | | | | | | | | +--------+ + + + + | 05/01/ | Procedure | Cardiology | | | | 2019 | visit | | | | +--------+ + + + + | 05/01/ | Office | Cardiology | Silvia, | | | 2019 | Visit | | [address] [address] | | | | | | [place], | | | | | | [place] [address] | | | | | | [phone] | | | | | | | | +--------+ + + + + | 05/21/ | Implant | Cardiology | Daljit Singletary, | Remote Device | 2019 | Monitor | | [address] [place] | Interrogation | | | | | [place], | (Primary Dx); | | | | | [place] [address] | Pacemaker; | | | | | [phone] | Sinoatrial node | | | | | | dysfunction (HCC) | | | | | | with symptomatic | | | | | | bradycardia | +--------+ + + + + documented as of this encounter Visit Diagnoses Not on filedocumented in this encounter"
--- OUTSIDE RECORDS SUMMARY | ~2020-04-15 | XMS | Encounter Summary ---
Demographics + + + | Address | [address] | | | [place] [address] | + + + | Home Phone [...] Team Providers + +------+ + | Care Clutch Rebuilder Name | Role | Phone | [...] [address] [place] | | | | | [place], [place] | [address] | | | | | [address] | [place] [address] | | | | | [phone] | [phone] | | | | | | | [...] | | | | | | [place] [address] | | | | | | [phone] | | | | | | | [...] | | | | | | [place] [address] | | | | | | [phone] | | | | | | | | +--------+ + + + + | 05/21/ | Implant | Cardiology | Daljit Singletary, | Remote Device | 2019 | Monitor | | MD [address] [place] | Interrogation | | | | | [place], | (Primary Dx); | | | | | [place] [address] | Pacemaker; | | | | | [phone] | Sinoatrial node | | | | [...] | | | Basophils | performed at [facility];[address] | 10*3/uL | LAB | | | | [address] | | | | | | [address];[place] [address] | | | | + + + [...] | | | | | [address];[place] [address] | | | | + + + [...] | | | | | | at [facility];[address] [facility] | | | | | | [facility];[place], [place] | | | | | | [address] | | | | + + + [...]
--- OUTSIDE RECORDS SUMMARY | ~2020-04-15 | XMS | Encounter Summary ---
Demographics + + + | Address | [address] | | | [place] [address] | + + + | Home Phone [...] Providers + +------+ + | Care Order Builder Name | Role | Phone | [...] | CARDIOLOGY [address] | [employer] [address] | | | | | [place], | [place], | | | | | [place] [address] | [place] [address] | | | | | [phone] | [phone] | | | | | | | [...] W | | | | | | [place], | | | | | | [place] [address] | | | | | | [phone] | | | | | | | | +--------+ + + + + | 05/01/ | Procedure | Cardiology | | | | 2019 | visit | | | | +--------+ + + + + | 05/01/ | Office | Cardiology | Silvia, | | | 2019 | Visit | | PARISA Vernon [address] | | | | | | [place], | | | | | | [place] [address] | | | | | | [phone] | | | | | | | | +--------+ + + + + | 05/21/ | Implant | Cardiology | Daljit Singletary, | Remote Device | | 2019 | Monitor | | [address] [facility] | Interrogation | | | | | [place], | (Primary Dx); | | | | | [place] [address] | Pacemaker; | | | | | [phone] | Sinoatrial node | | | | | | dysfunction (HCC) | | | | | | with symptomatic | | | | | | bradycardia | +--------+ + + + + documented as of this encounter Visit Diagnoses Not on filedocumented in this encounter"
--- OUTSIDE RECORDS SUMMARY | ~2020-04-15 | XMS | Encounter Summary ---
Demographics + + + | Address | [address] | | | [place] [address] | + + + | Home Phone [...] | | [address] [place] | [place] [address] | | | | | [place] [address] | | | | | | [phone] | | | +--------+ + + + [...] | | | | | | [place] [address] | | | | | | [phone] | | | | | | | [...] | | | | | | [place] [address] | | | | | | [phone] | | | | | | | | +--------+ + + + + | 05/21/ | Implant | Cardiology | Daljit Singletary, | Remote Device | 2019 | Monitor | | [address] [place] | Interrogation | | | | | [place], | (Primary Dx); | | | | | [place] [address] | Pacemaker; | | | | | [phone] | Sinoatrial node | | | | [...] for comparison only - no result from [facility]. | | + + + + +---------+ + + | Performing | Address | City/State/Zipcode | Phone Number | | Organization | | | | + +---------+ + + | [facility] | | | | + +---------+ + + documented in this encounter Visit Diagnoses Not on filedocumented in this encounter"
--- OUTSIDE RECORDS SUMMARY | ~2020-04-15 | XMS | Encounter Summary ---
Demographics + + + | Address | [address] | | | [place] [address] | + + + | Home Phone [...] Providers + +------+ + | Care Parachute Folder Name | Role | Phone | [...] | [facility] | [place], | SINUS BRADYCARDIA | | 2013 | Visit | CARDIOLOGY [address] | [place] [address] | (Primary Dx); | | | | [place], | [place], | Syncope; Symptomatic | | | | [place] [address] | [place] [address] | PVCs; Pacemaker - | | | | [phone] | [phone] | Medtronic - [id number] | | | [...] Sanchez Date: March 07, 2014 : 1960 Machine Molder: Kailey Pruitt RN Device Stacking Machine Operator:Medtronic Sense (mV) Impedance (?) Capture (V) Capture (ms) A Lead >5.60 402 1.500 0.09 RV Lead >31.36 522 2.00 0.09 LV Lead Battery Impedance (?): 528 Battery Voltage (V): 2.79 MA Interval (ms): 147 AR Interval (ms): 217 VA Conduction: Mode Switch Events: 0 % of time: 0 -SECONDARY SET UP MAN: <0.1% AP-SECONDARY SET UP MAN: 0.1% -VS: 23.8% AP-VS: 76.1% SECONDARY SET UP MAN: Magnetic Rate: 85 LINDA: 65 LEAH: Current [...] Pruitt RN 03/07/2014 12:00 Janeen Mccollum AR STOP ATTACHER - 03/07/2014 11:07 AM PDT PATIENT NAME: [...] needed for Chest pain. 25 tablet 12 [place]-3 Fatty Acids (SALMON OIL-1000 PO) CAPS, one [...] Sanchez Date: March 07, 2014 : 1960 Machine Molder: Kailey Pruitt RN Device Stacking Machine Operator:DeepRockDrive Sense (mV) Impedance (?) Capture (V) Capture (ms) A Lead >5.60 402 1.500 0.09 RV Lead >31.36 522 2.00 0.09 LV Lead Battery Impedance (?): 528 Battery Voltage (V): 2.79 MA Interval (ms): 147 AR Interval (ms): 217 VA Conduction: Mode Switch Events: 0 % of time: 0 -SECONDARY SET UP MAN: <0.1% AP-SECONDARY SET UP MAN: 0.1% -VS: 23.8% AP-VS: 76.1% SECONDARY SET UP MAN: Magnetic Rate: 85 LINDA: 65 LEAH: Current [...] attenuation cannot completely be ruled out. D. [facility] 12/25/13, shows noncritical coronary artery disease, [...] pain. He is in class II of [place] [employer] functional class . There are [...] to go back in 3 days to [place] for an attempt of ablation under general [...] palpitations.. He is in class II of [place] [employer] functional class. There are [...] bring in his blood pressure logs from [facility] e 5. Lightheadedness and dizziness/ presyncope: [...] to ensure accuracy; however, inadvertent computerized medical transcription supervisor errors may be pre sent. Electronically [...] | | | | | | [place] [address] | | | | | | [phone] | | | | | | | | +--------+ + + + + | 05/01/ | Procedure | Cardiology | | | | 2019 | visit | | | | +--------+ + + + + | 05/01/ | Office | Cardiology | Silvia, | | | 2019 | Visit | | PARISA [place] W | | | | | | [place], | | | | | | [place] [address] | | | | | | [phone] | | | | | | | | +--------+ + + + + | 05/21/ | Implant | Cardiology | Daljit Singletary, | Remote Device | 2019 | Monitor | | [address] [facility] | Interrogation | | | | | [place], | (Primary Dx); | | | | | [place] [address] | Pacemaker; | | | | | [phone] | Sinoatrial node | | | | [...] 07, 2014 : | | | 1960 Machine Molder: Kailey Pruitt RN Device | | | Stacking Machine Operator:The Film Cotronic Sense (mV) Impedance (?) Capture (V) | | | Capture (ms) A Lead >5.60 402 1.500 0.09 RV Lead >31.36 522 2.00 | | | 0.09 LV Lead Battery Impedance (?): 528 Battery Voltage (V): | | | 2.79 MA Interval (ms): 147 AR Interval (ms): 217 VA Conduction: | | | Mode Switch Events: 0 % of time: 0 -SECONDARY SET UP MAN: <0.1% AP-SECONDARY SET UP MAN: 0.1% -VS: | | | 23.8% AP-VS: 76.1% SECONDARY SET UP MAN: Magnetic Rate: 85 LINDA: 65 LEAH: Current [...] | | Date: March 07, 2014DOB: 1960 Machine Molder: Kailey Pruitt RN Device | | Stacking Machine Operator:Medtronic Sense (mV) Impedance (?) Capture (V) Capture (ms) A Lead >5.60 | | 402 1.500 0.09 RV Lead >31.36 522 2.00 0.09 LV Lead Battery Impedance (?): 528 | | Battery Voltage (V): 2.79 MA Interval (ms): 147 AR Interval (ms): 217 VA Conduction: | | Mode Switch Events: 0 % of time: 0 -SECONDARY SET UP MAN: <0.1% AP-SECONDARY SET UP MAN: 0.1% -VS: 23.8% AP-VS: 76.1% | | SECONDARY SET UP MAN: Magnetic Rate: 85 LINDA: 65 LEAH: Current [...]
--- OUTSIDE RECORDS SUMMARY | ~2020-04-15 | XMS | Encounter Summary ---
Demographics + + + | Address | [address] | | | [place] [address] | + + + | Home Phone [...] Providers + +------+ + | Care Pipe Production Worker Name | Role | Phone [...] + | 06/24/ | Telephone | [facility] | Daljit Singletary, | Lab Order | | 2017 | | CARDIOLOGY [address] | MD [address] | | | | | [place], | [place], | | | | | [place] [address] | [place] [address] | | | | | [phone] | [phone] | | | | | | | [...] | | | | | | [place] [address] | | | | | | [phone] | | | | | | | | +--------+ + + + + | 05/01/ | Procedure | Cardiology | | | | 2019 | visit | | | | +--------+ + + + + | 05/01/ | Office | Cardiology | Silvia, | | | 2019 | Visit | | PARISA [place] [address] | | | | | | [place], | | | | | | [place] [address] | | | | | | [phone] | | | | | | | | +--------+ + + + + | 05/21/ | Implant | Cardiology | Daljit Singletary, | Remote Device | | 2019 | Monitor | | MD [address] | Interrogation | | | | | [place], | (Primary Dx); | | | | | [place] [address] | Pacemaker; | | | | | [phone] | Sinoatrial node | | | | [...] 06/24/2018, Expires: | | | | | [place] coronary | 06/24/2019 | | | [...]
--- OUTSIDE RECORDS SUMMARY | ~2020-04-15 | XMS | Encounter Summary ---
Demographics + + + | Address | [address] | | | [place] [address] | + + + | Home Phone [...] Providers + +------+ + | Care Head Mechanic Name | Role | Phone | [...] [address] | | | | | [place], | [place], | | | | | [place] [address] | [place] [address] | | | | | [phone] | [phone] | | | | | | | [...] W | | | | | | [place], | | | | | | [place] [address] | | | | | | [phone] | | | | | | | | +--------+ + + + + | 05/01/ | Procedure | Cardiology | | | | 2019 | visit | | | | +--------+ + + + + | 05/01/ | Office | Cardiology | Silvia, | | | 2019 | Visit | | PARISA [place] [address] | | | | | | [place], | | | | | | [place] [address] | | | | | | [phone] | | | | | | | | +--------+ + + + + | 05/21/ | Implant | Cardiology | Daljit Singletary, | Remote Device | 2019 | Monitor | | MD [address] [place] | Interrogation | | | | | [place], | (Primary Dx); | | | | | [place] [address] | Pacemaker; | | | | | [phone] | Sinoatrial node | | | | [...] Resulting Agency Comment | + + | [facility] | + + + +---------+ + [...] Resulting Agency Comment | + + | [facility] | + + + +---------+ + [...] Resulting Agency Comment | + + | [facility] | + + + +---------+ + [...] Resulting Agency Comment | + + | [facility] | + + + +---------+ + [...] Resulting Agency Comment | + + | [facility] | + + + +---------+ + [...] Resulting Agency Comment | + + | [facility] | + + + +---------+ + [...] Resulting Agency Comment | + + | [facility] | + + + +---------+ [...] Resulting Agency Comment | + + | [facility] | + + + +---------+ + [...] Resulting Agency Comment | + + | [facility] | + + + +---------+ [...] Resulting Agency Comment | + + | [facility] | + + + +---------+ [...] Resulting Agency Comment | + + | [facility] | + + + +---------+ + [...] Resulting Agency Comment | + + | [facility] | + + + +---------+ + [...] Resulting Agency Comment | + + | [facility] | + + + +---------+ + [...] Agency Comment | + + | [facility] | + + + +---------+ + [...] Resulting Agency Comment | + + | [facility] | + + + +---------+ + [...] Resulting Agency Comment | + + | [facility] | + + + +---------+ + [...] Resulting Agency Comment | + + | [facility] | + + + +---------+ + [...]
--- OUTSIDE RECORDS SUMMARY | ~2020-04-15 | XMS | Encounter Summary ---
Demographics + + + | Address | [address] | | | [place] [address] | + + + | Home Phone [...] Team Providers + +------+ + | Care Cmo & President Name | Role | Phone [...] | RN | | | | | [place], | | | | | | [place] [address] | | | | | | [phone] | | | +--------+ + + + [...] | | | | | | [place] [address] | | | | | | [phone] | | | | | | | [...] | | | | | | [place] [address] | | | | | | [phone] | | | | | | | | +--------+ + + + + | 05/21/ | Implant | Cardiology | Daljit Singletary, | Remote Device | 2019 | Monitor | | [address] [place] | Interrogation | | | | | [place], | (Primary Dx); | | | | | [place] [address] | Pacemaker; | | | | | [phone] | Sinoatrial node | | | | | | dysfunction (HCC) | | | | | | with symptomatic | | | | | | bradycardia | +--------+ + + + + documented as of this encounter Visit Diagnoses Not on filedocumented in this encounter"
--- OUTSIDE RECORDS SUMMARY | ~2020-04-15 | XMS | Encounter Summary ---
Demographics + + + | Address | [address] | | | [place] [address] | + + + | Home Phone [...] Providers + +------+ + | Care Green Chain Off Bearer Name | Role | Phone | + [...] W | reprogramming/check | | | | [place], | [address] [place] | [place] | | | | [place] [address] | [place] [address] | (Primary Dx); | | | | [phone] | [phone] | Pacemaker - | | | | [...] | | | | | | [place] [address] | | | | | | [phone] | | | | | | | | +--------+ + + + + | 05/01/ | Procedure | Cardiology | | | | 2019 | visit | | | | +--------+ + + + + | 05/01/ | Office | Cardiology | Siliva, | | | 2019 | Visit | | [address] | | | | | | [place], | | | | | | [place] [address] | | | | | | [phone] | | | | | | | | +--------+ + + + + | 05/21/ | Implant | Cardiology | Daljit Singletary, | Remote Device | | 2019 | Monitor | | [address] [facility] [place] | Interrogation | | | | | [place], | (Primary Dx); | | | | | [place] [address] | Pacemaker; | | | | | [phone] | Sinoatrial node | | | | [...]
--- OUTSIDE RECORDS SUMMARY | ~2020-04-15 | XMS | Encounter Summary ---
Demographics + + + | Address | [address] | | | [place] [address] | + + + | Home Phone [...] | CARDIOLOGY [address] | MD [address] [place] | | | | | [place], | [place], | | | | | [place] [address] | [place] [address] | | | | | [phone] | [phone] | | | | | | | [...] | | | | | | [place] [address] | | | | | | [phone] | | | | | | | [...] | | | | | | [place] [address] | | | | | | [phone] | | | | | | | | +--------+ + + + + | 05/21/ | Implant | Cardiology | Daljit Singletary, | Remote Device | 2019 | Monitor | | MD [address] [place] | Interrogation | | | | | [place], | (Primary Dx); | | | | | [place] [address] | Pacemaker; | | | | | [phone] | Sinoatrial node | | | | | | dysfunction (HCC) | | | | | | with symptomatic | | | | | | bradycardia | +--------+ + + + + documented as of this encounter Visit Diagnoses Not on filedocumented in this encounter"
--- OUTSIDE RECORDS SUMMARY | ~2020-04-15 | XMS | Encounter Summary ---
Demographics + + + | Address | [address] | | | [place] [address] | + + + | Home Phone [...] Providers + +------+ + | Care Dough Maker Name | Role | Phone | [...] 2019 | | GASTROENTEROLOGY | [address], [place] | | | | | [address] [place] | [address] [place], [place] | | | | | [address] [place], [place] | [address] | | | | | [address] | | | | | | [phone] | | | +--------+ + + + [...] | | | | | | [place] [address] | | | | | | [phone] | | | | | | | [...] | | | | | | [place] [address] | | | | | | [phone] | | | | | | | | +--------+ + + + + | 05/21/ | Implant | Cardiology | Daljit Singletary, | Remote Device | | 2019 | Monitor | | [address] | Interrogation | | | | | [place], | (Primary Dx); | | | | | [place] [address] | Pacemaker; | | | | | [phone] | Sinoatrial node | | | | | | dysfunction ([facility]) | | | | | | with symptomatic | | | | | | bradycardia | +--------+ + + + + documented as of this encounter Visit Diagnoses Not on filedocumented in this encounter"
--- OUTSIDE RECORDS SUMMARY | ~2020-04-15 | XMS | Encounter Summary ---
Demographics + + + | Address | [address] | | | [place] [address] | + + + | Home Phone [...] Providers + +------+ + | Care Logistics Service Representative Name | Role | Phone [...] | 01/04/ | Telephone | [facility] | Emmanuel Daniel MD | Other | | 2019 | | GASTROENTEROLOGY | [address], [place] | | | | | [address] [place] | [address] [place], [place] | | | | | 210 [place], [place] | [address] | | | | | [address] | | | | | | [phone] | | | +--------+ + + + [...] | | | | | | [place] [address] | | | | | | [phone] | | | | | | | | +--------+ + + + + | 05/01/ | Procedure | Cardiology | | | | 2019 | visit | | | | +--------+ + + + + | 05/01/ | Office | Cardiology | Silvia, | | | 2019 | Visit | | [address] | | | | | | [place], | | | | | | [place] [address] | | | | | | [phone] | | | | | | | | +--------+ + + + + | 05/21/ | Implant | Cardiology | Daljit Singletary, | Remote Device | | 2019 | Monitor | | [address] [facility] | Interrogation | | | | | [address] [place], | (Primary Dx); | | | | | [place] [address] | Pacemaker; | | | | | [phone] | Sinoatrial node | | | | | | dysfunction (HCC) | | | | | | with symptomatic | | | | | | bradycardia | +--------+ + + + + documented as of this encounter Visit Diagnoses Not on filedocumented in this encounter"
--- OUTSIDE RECORDS SUMMARY | ~2020-04-15 | XMS | Encounter Summary ---
Demographics + + + | Address | [address] | | | [place] [address] | + + + | Home Phone [...] Providers + +------+ + | Care Fuel Handler Name | Role | Phone | [...] 2019 | | GASTROENTEROLOGY | [address], [place] | | | | | [address] [place] | [address] [place], [place] | | | | | 210 [place], [place] | [address] | | | | | [address] | | | | | | [phone] | | | +--------+ + + + [...] | | | | | | [place] [address] | | | | | | [phone] | | | | | | | | +--------+ + + + + | 05/01/ | Procedure | Cardiology | | | | 2020 | visit | | | | +--------+ + + + + | 06/10/ | Office | Cardiology | Silvia, | | | 2019 | Visit | | [address] W | | | | | | [place], | | | | | | [place] [address] | | | | | | [phone] | | | | | | | | +--------+ + + + + | 05/21/ | Implant | Cardiology | Daljit Singletary, | Remote Device | 2019 | Monitor | | [address] | Interrogation | | | | | [place], | (Primary Dx); | | | | | [place] [address] | Pacemaker; | | | | | [phone] | Sinoatrial node | | | | | | dysfunction (HCC) | | | | | | with symptomatic | | | | | | bradycardia | +--------+ + + + + documented as of this encounter Visit Diagnoses Not on filedocumented in this encounter"
--- OUTSIDE RECORDS SUMMARY | ~2020-04-15 | XMS | Encounter Summary ---
Demographics + + + | Address | [address] | | | [place] [address] | + + + | Home Phone [...] Providers + +------+ + | Care Department Of Sociology Chair Name | Role | Phone | [...] | | CARDIOLOGY [address] | [address] [place] | | | | | [place], | [place], | | | | | [place] [address] | [place] [address] | | | | | [phone] | [phone] | | | | | | | [...] | | | | | | [place] [address] | | | | | | [phone] | | | | | | | [...] | | | | | | [place] [address] | | | | | | [phone] | | | | | | | | +--------+ + + + + | 05/21/ | Implant | Cardiology | Daljit Singletary, | Remote Device | | 2019 | Monitor | | MD [address] [place] | Interrogation | | | | | [place], | (Primary Dx); | | | | | [place] [address] | Pacemaker; | | | | | [phone] | Sinoatrial node | | | | [...] [address] | [place] | [phone] | | [facility] | | [address] | | | - LABORATORY | | | | + + + + + | [facility] | [address] [place] [address] | [place] | | | [facility] | | [address], [facility] | | | - [...]
--- OUTSIDE RECORDS SUMMARY | ~2020-04-15 | XMS | Encounter Summary ---
Demographics + + + | Address | [address] | | | [place] [address] | + + + | Home Phone [...] | type | [address] | [address] | | | | | Procedures | [place] | [place], | | | | | FUP | [place], [place] | [place] [address] | | | | | | [address] | Phone: | | | | | | Phone: | [phone] | | | | | | [phone] | Fax: | | | | | | Fax: | [phone] | | | | | | [phone] | | +--------+ + + + + [...] | | | CENTER [address] | [address] [place] | (Primary Dx) | | | | [place], [place] | [place] [address] | | | | | [address] | [phone] | | | | | [phone] | | | +--------+ + + + [...] cannot be sent through Care Everywhere.Angina, Stable (Polish)documented in this encounter Medications at Time [...] | | | | | | [place] [address] | | | | | | [phone] | | | | | | | | +--------+ + + + + | 05/01/ | Procedure | Cardiology | | | | 2019 | visit | | | | +--------+ + + + + | 05/01/ | Office | Cardiology | Silvia | | | 2019 | Visit | | [address] [address] | | | | | | [place], | | | | | | [place] [address] | | | | | | [phone] | | | | | | | | +--------+ + + + + | 05/21/ | Implant | Cardiology | Daljit Singletary, | Remote Device | 2019 | Monitor | | [address] | Interrogation | | | | | [place], | (Primary Dx); | | | | | [place] [address] | Pacemaker; | | | | | [phone] | Sinoatrial node | | | | [...] | | | | HIREN WINKLER, ANGELA ([id number]) | | | | | | on [...] [address] | [place] | [phone] | | [facility] | | [address] | | | - LABORATORY | | [...] | [facility] | [address] | [place] | [phone] | | [facility] | | [address] | | | - LABORATORY | | [...] | [facility] | [address] | [place] | [phone] | | [facility] | | [address] | | | - LABORATORY | | [...] | [address] MICHELLE | | | [place] | RATE,ESTIMATED | | MEDICAL | | | | mL/min/[id number] than | | CENTER - | | [...] [address] | [place] | [phone] | | [facility] | | [address] | | | - LABORATORY | | [...] [address] | [place] | [phone] | | [facility] | | [address] | | | - LABORATORY | | [...] | | | | ANGELA MARADIAGA MD ([id number]) | | | | | | on [...]
--- OUTSIDE RECORDS SUMMARY | ~2020-04-15 | XMS | Encounter Summary ---
Demographics + + + | Address | [address] [place] [address] [address] | | | [place] [address] | + + + | Home Phone [...] [place] | | | | | [address] | | + + + + + Care Team Providers + +------+ + | Care Roving Technician Name | Role | Phone | [...] 2019 | | Center at [facility] [address] | MD [address] | | | | | [address] | [place], [place] | | | | | Mailcode: Center | [address] | | | | | [facility] and | [phone] | | | | | [facility] [address] | | | | | | [place], [place] | | | | | | [address] | | | | | | [phone] | | | +--------+ + + + [...]
--- OUTSIDE RECORDS SUMMARY | ~2020-04-15 | XMS | Encounter Summary ---
Demographics + + + | Address | [address] | | | [place] [address] | + + + | Home Phone [...] | | | | [place] | [address] | | | | | [address] | | | | | | [phone] | | | +--------+ + + + [...] W | | | | | | [place], | | | | | | [place] [address] | | | | | | [phone] | | | | | | | | +--------+ + + + + | 05/01/ | Procedure | Cardiology | | | | 2019 | visit | | | | +--------+ + + + + | 05/01/ | Office | Cardiology | Silvia, | | | 2019 | Visit | | [address] W | | | | | | [place], | | | | | | [place] [address] | | | | | | [phone] | | | | | | | | +--------+ + + + + | 05/21/ | Implant | Cardiology | Daljit Singletary, | Remote Device | 2019 | Monitor | | MD [address] | Interrogation | | | | | [place], | (Primary Dx); | | | | | [place] [address] | Pacemaker; | | | | | [phone] | Sinoatrial node | | | | | | dysfunction (HCC) | | | | | | with symptomatic | | | | | | bradycardia | +--------+ + + + + documented as of this encounter Visit Diagnoses Not on filedocumented in this encounter"
--- OUTSIDE RECORDS SUMMARY | ~2020-04-15 | XMS | Encounter Summary ---
Demographics + + + | Address | [address] | | | [place] [address] | + + + | Home Phone [...] Team Providers + +------+ + | Care Recordist Chief Name | Role | Phone | [...] | | | pain | [address] | [address] | | | | | Procedures | St [place] | [place], | | | | | [place] Nuclear | [place] | [place] | | | | | Stress Test | [address] | [address] | | | | | (Vasodilator | Phone: | Phone: | | | | | ) CHG | [phone] | [phone] | | | | | MYOCARDIAL | Fax: | Fax: | | | | | SPECT | [phone] | [phone] | | | | | MULTIPLE | | | | | | | STUDIES | | | +--------+--------+ + + + + Encounter Details +--------+ + + + + | Date | Type | Department | Care Team | Description | +--------+ + + + + | 12/06/ | Hospital | [facility] | Geri Angel, | Other chest pain | | 2013 | Encounter | MED CTR XRAY [address] | SECURITY REPRESENTATIVE [address] | | | | | [place] | [place] | | | | | [place] [address] | [address] | | | | | [phone] | | | +--------+ + + + [...] + + + +---------+ + + | B[place]-3 Fatty | CAPS, one capsule by | [...] | | | | | | [place] [address] | | | | | | [phone] | | | | | | | [...] | | | | | | [place] [address] | | | | | | [phone] | | | | | | | | +--------+ + + + + | 05/21/ | Implant | Cardiology | Daljit Singletary, | Remote Device | 2019 | Monitor | | [address] | Interrogation | | | | | [place], | (Primary Dx); | | | | | [place] [address] | Pacemaker; | | | | | [phone] | Sinoatrial node | | | | [...] Performed At | + + + | [facility] Diagnostic Imaging | [place] | | Department [address] [place] | [address] | | [ rep ct street[address]] [ rep [facility] | | st zip] Signed | - IMAGING | | | | | Patient Name: MOE GAY | | | Physician: JACKLYN : 1960 Age: 53 Sex: M Unit | | | #: [id number] Exam Date: 12/06/13 [place]: | | | [facility] [place]: [id number] Page: | | | %(RAD)RES..mtdd.print.filter("pg") of %(RAD) | | | RES..mtdd.print.filter("tpg") | | | | | | Accession Number: [id number] | | | PERSANTINE SESTAMIBI STRESS TEST, [...] Transcribed Date/Time: 12/07/2013 08:18 | | | Line Installation Supervisor: <<Signature on File>> | | | | | | Daljit Singletary MD [facility] FASE12/07/13 1321 <Electronically signed | | | by Daljit Singletary MD, [facility], FACDamien, ADELINE, YEN> Daljit | | | MD Gemini [facility] ADELINE 12/07/13 0701 Line Installation Supervisor: Cheyennex | | | Kddspyxchayqt66/16/14 0818 PARISA Garcia | | + + + + + + + + | Performing | Address | City/State/Zipcode | Phone Number | | Organization | | | | + + + + + | [facility] | [address] | [place] | [phone] | | [facility] | | [address] | | | - IMAGING | | | | + + + + + documented in this encounter Visit Diagnoses + + | Diagnosis | + + | Other chest pain | + + documented in this encounter
--- OUTSIDE RECORDS SUMMARY | ~2020-04-15 | XMS | Encounter Summary ---
Demographics + + + | Address | [address] | | | [place] [address] | + + + | Home Phone [...] Providers + +------+ + | Care Job Foreman Name | Role | Phone | [...] | | | | Sinoatrial | Geri, GRAB JACK MAN | [address] | | | | | node | [address] | [place], | | | | | dysfunction | [place] | [place] | | | | | (HCC) | [place], [place] | [address] | | | | | Coronary | [address] | Phone: | | | | | artery | Phone: | [phone] | | | | | disease | [phone] | Fax: | | | | | involving | Fax: | [phone] | | | | | lime | [phone] | | | | | | coronary | | | | | | | artery of | | | | | | | lime heart | | | | | | [...] | | | | Sinoatrial | Geri, GRAB JACK MAN | [address] | | | | | node | [address] | [place], | | | | | dysfunction | [place] | [place] | | | | | ([facility]) | [place], [place] | [address] | | | | | Coronary | [address] | Phone: | | | | | artery | Phone: | [phone] | | | | | disease | [phone] | Fax: | | | | | involving | Fax: | [phone] | | | | | lime | [phone] | | | | | | coronary | | | | | | | artery of | | | | | | | lime heart | | | | | | [...] + + + + | 06/16/ | [facility] | [facility] | Geri Angel, | Sinoatrial node | | 2016 | Encounter | MED CTR ECHO [address] | GRAB JACK MAN [address] | dysfunction (HCC) | | | | [place] | [place], [place] | with symptomatic | | | | [place] [address] | [address] | bradycardia; | | | | [phone] | | Coronary artery | | | | | Juvenal Blake, | disease involving | | | | | Technologist | lime coronary | | | | [...] + + + +---------+ + + | Jelm-3 Fatty | CAPS, one capsule by | [...] W | | | | | | [place], | | | | | | [place] [address] | | | | | | [phone] | | | | | | | | +--------+ + + + + | 05/01/ | Procedure | Cardiology | | | | 2019 | visit | | | | +--------+ + + + + | 05/01/ | Office | Cardiology | Silvia, | | | 2019 | Visit | | PARISA [place] [address] | | | | | | [place], | | | | | | [place] [address] | | | | | | [phone] | | | | | | | | +--------+ + + + + | 05/21/ | Implant | Cardiology | Sydni Singletary, | Remote Device | | 2019 | Monitor | | [address] [facility] | Interrogation | | | | | [place], | (Primary Dx); | | | | | [place] [address] | Pacemaker; | | | | | [phone] | Sinoatrial node | | | | [...] (TTE) Demographics Patient Name VICTOR HUGO | [facility] | | [place] Room Number SARAH Patient | [facility] | | [id number] Date of Study 06/16/2016 Number | - IMAGING | | Visit Number [id number] | | | Referring Physician JOSE ARMANDO GARCIA Number Date of 1960 | | | Staff Nurse Midwife LUIS FERNANDO DUARTE Age | | | 56 year(s) Interpreting | | | GURJIT TROY | | | R&D Lab Technician SYDNI SINGLETARY, | | | Gender | | | Male Nurse Procedure Type of Study TTE | | | procedure: ECHO Complete. Procedure dateDate: 06/16/2016Start: 10:55 | | | AM Technical Quality: Adequate visualizationStudy Location: Echo | | | LabIndications: CAD TANGIRNAQ CORONARY ARTERY 414.01/ I25.10 and | | [...] BARRY Room Number SARAH | | Patient [id number] Date of Study 06/16/2016 Number Visit Number | | [id number] Referring Physician JOSE ARMANDO GARCIA Number | | Date of 1960 Staff Nurse Midwife LUIS FERNANDO DUARTE Age | | 56 year(s) Interpreting GURJIT TROY | | R&D Lab Technician SYDNI SINGLETARY, | | Gender Male NurseProcedureType of Study TTE | | procedure: ECHO Complete.Procedure dateDate: 06/16/2016Start: 10:55 AMTechnical Quality: | | Adequate visualizationStudy Location: Echo LabIndications: CAD TANGIRNAQ CORONARY ARTERY | | 414.01/ I25.10 and [...] | Performing | Address | City[facility]State[facility] | Phone Number | | Organization | | | | + + + + + | [facility] | [address] | [place] | [phone] | | [facility] | | [address] | | | - IMAGING | | [...]
--- OUTSIDE RECORDS SUMMARY | ~2020-04-15 | XMS | Encounter Summary ---
Demographics + + + | Address | [address] | | | [place] [address] | + + + | Home Phone [...] Providers + +------+ + | Care Director Television Name | Role | Phone | + [...] 2015 | | CARDIOLOGY [address] | SHIPPING AND RECEIVING MATERIAL HANDLER [address] [place] | | | | | [place], | [place], [place] | | | | | [place] [address] | [address] | | | | | [phone] | | | +--------+--------+ + + + [...] W | | | | | | [place], | | | | | | [place] [address] | | | | | | [phone] | | | | | | | | +--------+ + + + + | 05/01/ | Procedure | Cardiology | | | | 2019 | visit | | | | +--------+ + + + + | 05/01/ | Office | Cardiology | Silvia, | | | 2019 | Visit | | PARISA [place] W | | | | | | [place], | | | | | | [place] [address] | | | | | | [phone] | | | | | | | | +--------+ + + + + | 05/21/ | Implant | Cardiology | Daljit Singletary, | Remote Device | | 2019 | Monitor | | [address] [facility] | Interrogation | | | | | [place], | (Primary Dx); | | | | | [place] [address] | Pacemaker; | | | | | [phone] | Sinoatrial node | | | | | | dysfunction (HCC) | | | | | | with symptomatic | | | | | | bradycardia | +--------+ + + + + documented as of this encounter Visit Diagnoses Not on filedocumented in this encounter"
--- OUTSIDE RECORDS SUMMARY | ~2020-04-15 | XMS | Encounter Summary ---
Demographics + + + | Address | [address] | | | [place] [address] | + + + | Home Phone [...] Providers + +------+ + | Care Master Carpenter Name | Role | Phone | + +------+ + PCP | Unavailable | + +------+ + Encounter Details +--------+ + + + + | Date | Type | Department | Care Team | Description | +--------+ + + + + | 12/16/ | Hospital | [facility] | | | | 2010 | Encounter | MED CTR LABORATORY | | | | | | [address] | | | | | | [place] | | | | | | [address] | | | | | | [phone] | | | +--------+ + + + [...] | | | | | | [place] [address] | | | | | | [phone] | | | | | | | | +--------+ + + + + | 05/01/ | Procedure | Cardiology | | | | 2019 | visit | | | | +--------+ + + + + | 05/01/ | Office | Cardiology | Silvia, | | | 2019 | Visit | | PARISA Vernon [address] | | | | | | [place], | | | | | | [place] [address] | | | | | | [phone] | | | | | | | | +--------+ + + + + | 05/21/ | Implant | Cardiology | Daljit Singletary, | Remote Device | 2019 | Monitor | | [address] [place] | Interrogation | | | | | [place], | (Primary Dx); | | | | | [place] [address] | Pacemaker; | | | | | [phone] | Sinoatrial node | | | | | | dysfunction (HCC) | | | | | | with symptomatic | | | | | | bradycardia | +--------+ + + + + documented as of this encounter Visit Diagnoses Not on filedocumented in this encounter"
--- OUTSIDE RECORDS SUMMARY | ~2020-04-15 | XMS | Encounter Summary ---
Demographics + + + | Address | [address] [place] [address] [address] | | | [place] [address] | + + + | Home Phone [...] [place] | | | | | [address] | | + + + + + Care Team Providers + +------+ + | Care Dredge Engineer Name | Role | Phone | [...] Chest pain | Farooq Almaguer, | [address] | | | | | Bradycardia | DO [address] | T[place]ne [place] | | | | | Procedures | Yao Booth | Mailcode: | | | | | | Palak Desai | [facility] | | | | | TRANSTHORACI | [place], [place] | for Health | | | | | C | [address] | and Healing, | | | | | ECHOCARDIOGR | Phone: | Building [address] | | | | | AM, ADULT | [phone] | [place], [place] | | | | | | Fax: | [address] | | | | | | [phone] | Phone: | | | | | | | [phone] | +--------+--------+ + + + + Encounter Details +--------+ + + + + | Date | Type | Department | Care Team | Description | +--------+ + + + + | 02/03/ | Hospital | Cardiac | | | | 2010 | Encounter | Non-Invasive Testing | | | | | | at [facility] [address] | | | | | [address] Mailcode: [facility] | | | | | | [facility] | | | | | | and Healing, | | | | | | [address] | | | | | | [place], [place] | | | | | | [address] | | | | | | [phone] | | | +--------+ + + + [...]
--- OUTSIDE RECORDS SUMMARY | ~2020-04-15 | XMS | Encounter Summary ---
Demographics + + + | Address | [address] | | | [place] [address] | + + + | Home Phone [...] Providers + +------+ + | Care Safety Advisor Name | Role | Phone | + +------+ + | Kirk French MD | PCP | | + +------+ + Encounter Details +--------+ + + + + | Date | Type | Department | Care Team | Description | +--------+ + + + + | 01/05/ | Anesthesia | [facility] | Jarett Barakat | | | 2019 | Event | MED CTR MP INTRA OP | P, MD [address] | | | | | [address] | [place], [place] | | | | | [place], [place] | [address] | | | | | [address] | [phone] | | | | | [phone] | | | +--------+ + + + [...] explained and consent obtained. Patient transported to [facility], | | | 4 | [...] | 01/05/19950 by | | eral | [id number] catheter system; | Kasie Natarajan RN | [...] | | | | | | [place] [address] | | | | | | [phone] | | | | | | | [...] | | | | | | [place] [address] | | | | | | [phone] | | | | | | | | +--------+ + + + + | 05/21/ | Implant | Cardiology | Daljit Singletary, | Remote Device | 2019 | Monitor | | [place] [address] [place] | Interrogation | | | | | [place], | (Primary Dx); | | | | | [place] [address] | Pacemaker; | | | | | [phone] | Sinoatrial node | | | | [...]
--- OUTSIDE RECORDS SUMMARY | ~2020-04-15 | XMS | Encounter Summary ---
Demographics + + + | Address | [address] | | | [place] [address] | + + + | Home Phone [...] + +------+ + | Care Medical Office Receptionist Assistant Name | Role | Phone | + +------+ + | Michael Amanda DO | PCP | | + +------+ + Encounter Details +--------+ + + + + | Date | Type | Department | Care Team | Description | +--------+ + + + + | 11/03/ | Emergency | [facility] | Eliel Calzada, | Palpitations; | | 2013 - | | MEDICAL CENTER | MD Chiquis JOHNSON | Atypical chest pain | | | | EMERGENCY CENTER | [place] | | | 11/04/ | | [address] | [address] | | | 2013 | | [place], [place] | | | | | | [address] | | | | | | [phone] | | | +--------+ + + + [...] + + + +---------+ + + | [place]-3 Fatty | CAPS, one capsule by | [...] | | | | | | [place] [address] | | | | | | [phone] | | | | | | | [...] | | | | | | [place] [address] | | | | | | [phone] | | | | | | | | +--------+ + + + + | 05/21/ | Implant | Cardiology | Daljit Singletary, | Remote Device | | 2019 | Monitor | | [address] | Interrogation | | | | | [place], | (Primary Dx); | | | | | [place] [address] | Pacemaker; | | | | | [phone] | Sinoatrial node | | | | [...] CHEST 2 VIEW FRONTAL | | AND MNZYXED1911/03/2014 11:56 PM History: 54 years. Male. Acute [...] [place] | | | | | | [address] | | | | + + + + + -+ | Red Blood | 4.97Comment: Testing | 4.20 - 5.70 | EXTERNAL | | | Cells | performed at [facility];888 | M/uL | LAB | | | Counted | [address];[place] | | | | | | [address] | | | | + + + + + -+ | Hemoglobin | 16.8Comment: Testing | 13.2 - 17.0 | EXTERNAL | | | | performed at [facility];888 | g/dL | LAB | | | | [address];[place] | | | | | | [address] | | | | + + + + + -+ | Hematocrit, | 48.2Comment: Testing | 39.0 - 50.0 % | EXTERNAL | | | POC | performed at [facility];888 | | LAB | | | | [address];[place] | | | | | | [address] | | | | + + + + + -+ | MCV | 97.1Comment: Testing | 80.0 - 100.0 fl | EXTERNAL | | | | performed at [facility];888 | | LAB | | | | [address];[place] | | | | | | [address] | | | | + + + + + -+ | MCH | 33.9Comment: Testing | 27.0 - 34.0 pg | EXTERNAL | | | | performed at [facility];888 | | LAB | | | | [address];[place] | | | | | | [address] | | | | + + + + + -+ | MCHC | 34.9Comment: Testing | 32.0 - 35.5 | EXTERNAL | | | | performed at [facility];888 | g/dL | LAB | | | | [address];[place] | | | | | | [address] | | | | + + + + + -+ | RDW-CV | 42.4Comment: Testing | 37 - 53 fl | EXTERNAL | | | | performed at [facility];888 | | LAB | | | | [address];[place] | | | | | | [address] | | | | + + + + + -+ | Platelet | 143 (L)Comment: Testing | 150 - 400 K/uL | EXTERNAL | | | Count | performed at [facility];888 | | LAB | | | Plasma | [address];[place] | | | | | | [address] | | | | + + + + + -+ | MPV | 9.0Comment: Testing | fl | EXTERNAL | | | | performed at [facility];888 | | LAB | | | | [address];[place] | | | | | | [address] | | | | + + + + + -+ | Differentia | AUTOMATEDComment: | | EXTERNAL | | | l Type | Testing performed at | | LAB | | | | [facility];[address] | | | [address];[place] [address] | | | | + + + + + -+ | % Segmented | 61.6Comment: Testing | % | EXTERNAL | | | | performed at [facility];888 | | LAB | | | Neutrophils | [address];[place] | | | | | | [address] | | | | + + + + + -+ | % | 27.8Comment: Testing | % | EXTERNAL | | | Lymphocytes | performed at [facility];888 | | LAB | | | | [address];[place] | | | | | | [address] | | | | + + + + + -+ | % Monocytes | 8.7Comment: Testing | % | EXTERNAL | | | | performed at [facility];888 | | LAB | | | | [address];[place] | | | | | | [address] | | | | + + + + + -+ | % | 0.8Comment: Testing | % | EXTERNAL | | | Eosinophils | performed at [facility];888 | | LAB | | | | [address];[place] | | | | | | [address] | | | | + + + + + -+ | % Basophils | 1.1Comment: Testing | % | EXTERNAL | | | | performed at [facility];888 | | LAB | | | | [address];[place] | | | | | | [address] | | | | + + + + + -+ | Absolute | 5.4Comment: Testing | 1.9 - 7.4 K/uL | EXTERNAL | | | Segmented | performed at [facility];888 | | LAB | | | Neutrophils | [address];[place] | | | | | | [address] | | | | + + + + + -+ | Absolute | 2.4Comment: Testing | 1.0 - 3.9 K/uL | EXTERNAL | | | Lymphocytes | performed at [facility];888 | | LAB | | | | [address];[place] | | | | | | [address] | | | | + + + + + -+ | Absolute | 0.8Comment: Testing | 0 - 0.8 K/uL | EXTERNAL | | | Monocytes | performed at [facility];888 | | LAB | | | | [address];[place] | | | | | | [address] | | | | + + + + + -+ | Absolute | 0.1Comment: Testing | 0 - 0.5 K/uL | EXTERNAL | | | Eosinophils | performed at [facility];888 | | LAB | | | | [address];[place] | | | | | | [address] | | | | + + + + + -+ | Absolute | 0.1Comment: Testing | 0 - 0.1 K/uL | EXTERNAL | | | Basophils | performed at [facility];888 | | LAB | | | | [address];[place] | | | | | | [address] | | | | + + + [...] [place] | | | | | | [address] | | | | + + + + + -+ | Na | 140Comment: Testing | 135 - 143 | EXTERNAL | | | | performed at [facility];888 | mmol/L | LAB | | | | [address];[place] | | | | | | [address] | | | | + + + + + -+ | K | 3.9Comment: Testing | 3.5 - 4.9 | EXTERNAL | | | | performed at [facility];888 | mmol/L | LAB | | | | [address];[place] | | | | | | [address] | | | | + + + + + -+ | Cl | 107Comment: Testing | 99 - 109 mmol/L | EXTERNAL | | | | performed at [facility];888 | | LAB | | | | [address];[place] | | | | | | [address] | | | | + + + + + -+ | CO2 | 28Comment: Testing | 23 - 32 mmol/L | EXTERNAL | | | | performed at [facility];888 | | LAB | | | | [address];[place] | | | | | | [address] | | | | + + + + + -+ | Anion Gap | 9Comment: Testing | 5 - 20 mmol/L | EXTERNAL | | | | performed at [facility];888 | | LAB | | | | [address];[place] | | | | | | [address] | | | | + + + + + -+ | Glucose, | 97Comment: Testing | 65 - 99 mg/dL | EXTERNAL | | | Fasting | performed at [facility];888 | | LAB | | | | [address];[place] | | | | | | [address] | | | | + + + + + -+ | BUN | 14Comment: Testing | 8 - 25 mg/dL | EXTERNAL | | | | performed at [facility];888 | | LAB | | | | [address];[place] | | | | | | [address] | | | | + + + + + -+ | Creatinine | 0.98Comment: Testing | 0.70 - 1.30 | EXTERNAL | | | | performed at [facility];888 | mg/dL | LAB | | | | [address];[place] | | | | | | [address] | | | | + + + + + -+ | BUN/Creatin | 14Comment: Testing | | EXTERNAL | | | ine Ratio | performed at [facility];888 | | LAB | | | | [address];[place] | | | | | | [address] | | | | + + + + + -+ | Calcium | 8.8Comment: Testing | 8.5 - 10.2 | EXTERNAL | | | | performed at [facility];888 | mg/dL | LAB | | | | [address];[place] | | | | | | [address] | | | | + + + + + -+ | Protein, | 6.9Comment: Testing | 6.3 - 8.2 g/dL | EXTERNAL | | | Total | performed at [facility];888 | | LAB | | | | [address];[place] | | | | | | [address] | | | | + + + + + -+ | Albumin | 3.7Comment: Testing | 3.6 - 5.0 g/dL | EXTERNAL | | | | performed at [facility];888 | | LAB | | | | [address];[place] | | | | | | [address] | | | | + + + + + -+ | Globulin | 3.2Comment: Testing | 1.3 - 4.9 g/dL | EXTERNAL | | | | performed at [facility];888 | | LAB | | | | [address];[place] | | | | | | [address] | | | | + + + + + -+ | A/G Ratio | 1.2Comment: Testing | 1.0 - 2.4 | EXTERNAL | | | | performed at [facility];888 | | LAB | | | | [address];[place] | | | | | | [address] | | | | + + + + + -+ | Bilirubin | 0.9Comment: Testing | 0.1 - 1.5 mg/dL | EXTERNAL | | | Total | performed at [facility];888 | | LAB | | | | [address];[place] | | | | | | [address] | | | | + + + + + -+ | ALP, | 60Comment: Testing | 35 - 115 U/L | EXTERNAL | | | External | performed at [facility];888 | | LAB | | | | [address];[place] | | | | | | [address] | | | | + + + + + -+ | AST | 22Comment: Testing | 10 - 45 U/L | EXTERNAL | | | | performed at [facility];888 | | LAB | | | | [address];[place] | | | | | | [address] | | | | + + + + + -+ | ALT | 37Comment: Testing | 10 - 65 U/L | EXTERNAL | | | | performed at [facility];888 | | LAB | | | | [address];[place] | | | | | | [address] | | | | + + [...] | | | | | Blvd;[place] [address] | | | | + + + + + -+ | CK, Total | 103Comment: Testing | 55 - 400 U/L | EXTERNAL | | | | performed at [facility];888 | | LAB | | | | [address];[place] | | | | | | [address] | | | | + + + [...] [place] | | | | | | [address] | | | | + + + + + -+ | aPTT, | 26Comment: Testing | 23 - 32 seconds | EXTERNAL | | | Patient | performed at [facility];888 | | LAB | | | | [address];[place] | | | | | | [address] | | | | + + + + + -+ | CK-MB | 2.9Comment: Testing | 0.5 - 3.6 ng/mL | EXTERNAL | | | | performed at [facility];888 | | LAB | | | | [address];[place] | | | | | | [address] | | | | + + + [...] | LAB | | | | [address];[place], [place] | | | | | | [address] | | | | + + + [...] | LAB | | | | [address];[place], [place] | | | | | | [address] | | | | + + + [...] at [facility] | | LAB | | | | [address];[place], [place] | | | | | | [address] | | | | + + + [...] | | | | | ONLY, -COMPUTER (652), | | | | | | editor school photograph Michelle Butcher | | | | | | (29) on 11/04/2014 | | | | | | 6:28:13 AM | | | | + + + + + + + + | Specimen | + + | | + + + + + | Narrative | Performed At | + + + | Historically converted procedure from [facility] Epic environment | EXTERNAL LAB | [...]
--- OUTSIDE RECORDS SUMMARY | ~2020-04-15 | XMS | Encounter Summary ---
Demographics + + + | Address | [address] | | | [place] [address] | + + + | Home Phone [...] Providers + +------+ + | Care Door Installer Name | Role | Phone | [...] CASE | RN | (referral from [facility]) | | | | MANAGEMENT [address] | | | | | | [place], | | | | | | [place] [address] | | | | | | [phone] | | | +--------+ + + + [...] | | | | | | [place] [address] | | | | | | [phone] | | | | | | | | +--------+ + + + + | 05/01/ | Procedure | Cardiology | | | | 2019 | visit | | | | +--------+ + + + + | 05/01/ | Office | Cardiology | Silvia, | | | 2019 | Visit | | PARISA [place] [address] | | | | | | [place], | | | | | | [place] [address] | | | | | | [phone] | | | | | | | | +--------+ + + + + | 05/21/ | Implant | Cardiology | Daljit Singletary, | Remote Device | 2019 | Monitor | | [address] [facility] | Interrogation | | | | | [place], | (Primary Dx); | | | | | [place] [address] | Pacemaker; | | | | | [phone] | Sinoatrial node | | | | | | dysfunction (HCC) | | | | | | with symptomatic | | | | | | bradycardia | +--------+ + + + + documented as of this encounter Visit Diagnoses Not on filedocumented in this encounter"
--- OUTSIDE RECORDS SUMMARY | ~2020-04-15 | XMS | Encounter Summary ---
Demographics + + + | Address | [address] | | | [place] [address] | + + + | Home Phone [...] Providers + +------+ + | Care Inspector Missile Name | Role | Phone | + [...] | | | | CENTER [address] | [address] | (Primary Dx) | | | | [place], [place] | [place], [place] | | | | | [address] | [address] | | | | | [phone] | | | +--------+ + + + [...] | | | | | | [place] [address] | | | | | | [phone] | | | | | | | | +--------+ + + + + | 05/01/ | Procedure | Cardiology | | | | 2019 | visit | | | | +--------+ + + + + | 05/01/ | Office | Cardiology | Silvia, | | | 2019 | Visit | | PARISA [address] | | | | | | [place], | | | | | | [place] [address] | | | | | | [phone] | | | | | | | | +--------+ + + + + | 05/21/ | Implant | Cardiology | Sydni Singletary, | Remote Device | 2019 | Monitor | | [address] [facility] | Interrogation | | | | | [place], | (Primary Dx); | | | | | [place] [address] | Pacemaker; | | | | | [phone] | Sinoatrial node | | | | [...] W?MRN: | | | | | | [id number] | | | [id number] | | | his | | | [...] | | | ent/60 | | | [id number] | | | [phone]- | | | [...] | | | St. | | | [place] | | | y | | | [...] | | | ext. | | | [address] | | | or go | | [...] | | | M.D. | | | Pad Assembler | | | al | | [...] | | Ranges:0.00-0.06 = | | [facility] | | | | NORMAL>0.06 = | [...] | | | | | | [employer] | | | | | [...] + | [facility] | [address] | [place] | [phone] | | [facility] | | [address] | | | - LABORATORY | | [...] + | [facility] | [address] | [place] | [phone] | | [facility] | | [address] | | | - LABORATORY | | [...] | + + + + + | [facility] | [address] | [place] | [phone] | | [facility] | | [address] | | | - LABORATORY | | [...] 16 | 7 - 18 mg/dL | [facility] | | | | | | [facility] | | | | | | [facility] | | | | | | [facility] - | | | | | | LABORATORY | | + + + + + + | Creatinine | 0.82 | 0.60 - 1.30 | [facility] | | | | | mg/dL | [facility] | | | | | | MEDICAL | | | | | | CENTER - | | | | | | LABORATORY | | + + + + + + | eGFR if not | >60Comment: GLOMERULAR | >=60 | [facility] | | | | FILTRATION | mL/min/1.73m2 | [facility] | | | [place] | RATE,ESTIMATED | | MEDICAL | | | | mL/min/1.36p4Vfrw than | | CENTER - | | [...] [address] | [place] | [phone] | | [facility] | | [address] | | | - LABORATORY | | [...] [address] | [place] | [phone] | | [facility] | | [address] | | | - LABORATORY | | [...] [address] | [place] | [phone] | | [facility] | | [address] | | | - LABORATORY | | [...] SYDNI | | | | | | ([id number]) on 06/22/2018 | | | | | [...]
--- OUTSIDE RECORDS SUMMARY | ~2020-04-15 | XMS | Encounter Summary ---
Demographics + + + | Address | [address] | | | [place] [address] | + + + | Home Phone [...] + +------+ + | Care Lime Sludge Mixer Name | Role | Phone | [...] | | | DDD | Scotty C, WINDOWS TECHNICAL SPECIALIST | [facility] | | | | | (degenerativ | [address] | [facility] | | | | | e disc | [facility] | MEDICAL | | | | | disease), | DRIVE [address] | CENTER [address] | | | | | lumbar | B | [place] | | | | | Chronic | [place], [place] | [place], | | | | | left-sided | [address] | [place] [address] | | | | | low back | Phone: | Phone: | | | | | pain with | [phone] | [phone] | | | | | left-sided | Fax: | Fax: | | | | | sciatica | [phone] | [phone] | | | | | History of [...] | | | DDD | Scotty C, WINDOWS TECHNICAL SPECIALIST | [address] | | | | | (degenerativ | [address] | [place], | | | | | e disc | [place] | [place] [address] | | | | | disease), | DRIVE SU[address] | Phone: | | | | | lumbar | B | [phone] | | | | | Chronic | [place], [place] | Fax: | | | | | left-sided | [address] | [phone] | | | | | low back | Phone: | | | | | | pain with | [phone] | | | | | | left-sided | Fax: | | | | | | sciatica | [phone] | | | | | | History [...] + + | 07/01/ | Hospital | [facility] | Scotty Galdamez, | DDD (degenerative | | 2018 | Encounter | [facility] [address] | WINDOWS TECHNICAL SPECIALIST [address] | disc disease), | | | | [place], | [address] | lumbar; Chronic | | | | [place] [address] | [place] [address] | left-sided low back | | | | [phone] | [phone] | pain with left-sided | | | [...] + + + +---------+ + + | [place]-3 Fatty | CAPS, one capsule by | [...] W | | | | | | [place], | | | | | | [place] [address] | | | | | | [phone] | | | | | | | | +--------+ + + + + | 05/01/ | Procedure | Cardiology | | | | 2019 | visit | | | | +--------+ + + + + | 05/01/ | Office | Cardiology | Silvia, | | | 2019 | Visit | | [address] | | | | | | [place], | | | | | | [place] [address] | | | | | | [phone] | | | | | | | | +--------+ + + + + | 05/21/ | Implant | Cardiology | Daljit Singletary, | Remote Device | | 2020 | Monitor | | [address] | Interrogation | | | | | [place], | (Primary Dx); | | | | | [place] [address] | Pacemaker; | | | | | [phone] | Sinoatrial node | | | | [...] | narrowing at L4-L5.Dictated and Signed by: Emmaunel Gibbons MD Electronically signed: | | 07/01/2018 [...]
--- OUTSIDE RECORDS SUMMARY | ~2020-04-15 | XMS | Encounter Summary ---
Demographics + + + | Address | [address] | | | [place] [address] | + + + | Home Phone [...] Team Providers + +------+ + | Care Xray Tech Name | Role | Phone | [...] Refill | | 2012 | | MEDICINE [facility] | DO [address] | | | | | [address] | [place] | | | | | [place] | [address] | | | | | [address] | | | | | | [phone] | | | +--------+--------+ + + + [...] | | | | | | [place] [address] | | | | | | [phone] | | | | | | | [...] | | | | | | [place] [address] | | | | | | [phone] | | | | | | | | +--------+ + + + + | 05/21/ | Implant | Cardiology | Daljit Singletary, | Remote Device | | 2019 | Monitor | | [facility] | Interrogation | | | | | [place], | (Primary Dx); | | | | | [place] [address] | Pacemaker; | | | | | [phone] | Sinoatrial node | | | | | | dysfunction (HCC) | | | | | | with symptomatic | | | | | | bradycardia | +--------+ + + + + documented as of this encounter Visit Diagnoses Not on filedocumented in this encounter"
--- OUTSIDE RECORDS SUMMARY | ~2020-04-15 | XMS | Encounter Summary ---
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 This means it will be harder [...] or, difficulty with vision, speech or walking [address] [place] [address]. All rights reserve d. This information is [...] his pain clinic visit in the [facility] on Wednesday or he developed [...] double vision. He was evaluated by Dr Kinney and had a normal eye exam, nor [...] tablet by mouth Daily. 30 tablet 6 [place]-3 Fatty Acids (SALMON OIL-1000 PO) CAPS, one [...] | | | | | | [place] [address] | | | | | | [phone] | | | | | | | | +--------+ + + + + | 05/01/ | Procedure | Cardiology | | | 2019 | visit | | | | +--------+ + + + + | 05/01/ | Office | Cardiology | Silvia, | | | 2019 | Visit | | PARISA Vernon [address] | | | | | | [place], | | | | | | [place] [address] | | | | | | [phone] | | | | | | | | +--------+ + + + + | 05/21/ | Implant | Cardiology | Daljit Singletary, | Remote Device | 2019 | Monitor | | [place] [facility] | Interrogation | | | | | [place], | (Primary Dx); | | | | | [place] [address] | Pacemaker; | | | | | [phone] | Sinoatrial node | | | | [...] + | [facility] | [address] | [place] | [phone] | | [facility] | | [address] | | | - LABORATORY | | | | + + + + + | [facility] | [address] | [place] | | | [facility] | | [id number] | | | - LABORATORY [...] + | [facility] | [address] | [place] | [phone] | | [facility] | | [address] | | | - LABORATORY | | | | + + + + + | [facility] | [address] | [place], [place] | | | [facility] | | [address], [place] | | | - LABORATORY | [...] + | [facility] | [address] | [place] | [phone] | | [facility] | | [address] | | | - LABORATORY | | | | + + + + + | [facility] | [address] | [place] | | | [facility] | | [id number] [place] [address] | | | - LABORATORY | | | | + + + + + documented in this encounter Visit Diagnoses + + | Diagnosis | + + | Diplopia - Primary | + + | Symptomatic PVCs Other premature beats | + + | Hypertension Unspecified essential hypertension | + + documented in this encounter
--- OUTSIDE RECORDS SUMMARY | ~2020-04-15 | XMS | Encounter Summary ---
Demographics + + + | Address | [address] | | | [place] [address] | + + + | Home Phone [...] Providers + +------+ + | Care Civil Defense Director Name | Role | Phone | [...] | 11/26/ | Telephone | [facility] | [place]via, | Appointment (Needs | | 2017 | | CARDIOLOGY [address] | [address] | rescheduled) | | | | [place], | [place], | | | | | [place] [address] | [place] [address] | | | | | [phone] | [phone] | | | | | | | [...] | | | | | | [place] [address] | | | | | | [phone] | | | | | | | | +--------+ + + + + | 05/01/ | Procedure | Cardiology | | | | 2020 | visit | | | | +--------+ + + + + | 05/01/ | Office | Cardiology | Silvia, | | | 2019 | Visit | | PARISA Vernon [address] | | | | | | [place], | | | | | | [place] [address] | | | | | | [phone] | | | | | | | | +--------+ + + + + | 05/21/ | Implant | Cardiology | Daljit Singletary, | Remote Device | 2019 | Monitor | | [address] | Interrogation | | | | | [place], | (Primary Dx); | | | | | [place] [address] | Pacemaker; | | | | | [phone] | Sinoatrial node | | | | | | dysfunction (HCC) | | | | | | with symptomatic | | | | | | bradycardia | +--------+ + + + + documented as of this encounter Visit Diagnoses Not on filedocumented in this encounter"
--- OUTSIDE RECORDS SUMMARY | ~2020-04-15 | XMS | Encounter Summary ---
Demographics + + + | Address | [address] | | | [place] [address] | + + + | Home Phone [...] Providers + +------+ + | Care Transition Rn Name | Role | Phone | [...] Show | | 2012 | | [facility] | DO [address] | | | | | [address] | [place] | | | | | [place] | [address] | | | | | [address] | | | | | | [phone] | | | +--------+ + + + [...] W | | | | | | [place], | | | | | | [place] [address] | | | | | | [phone] | | | | | | | | +--------+ + + + + | 05/01/ | Procedure | Cardiology | | | | 2019 | visit | | | | +--------+ + + + + | 05/01/ | Office | Cardiology | Silvia, | | | 2019 | Visit | | PARISA [address] | | | | | | [place], | | | | | | [place] [address] | | | | | | [phone] | | | | | | | | +--------+ + + + + | 05/21/ | Implant | Cardiology | Daljit Singletary, | Remote Device | 2019 | Monitor | | [address] | Interrogation | | | | | [place], | (Primary Dx); | | | | | [place] [address] | Pacemaker; | | | | | [phone] | Sinoatrial node | | | | | | dysfunction (HCC) | | | | | | with symptomatic | | | | | | bradycardia | +--------+ + + + + documented as of this encounter Visit Diagnoses Not on filedocumented in this encounter"
--- OUTSIDE RECORDS SUMMARY | ~2020-04-15 | XMS | Encounter Summary ---
Demographics + + + | Address | [address] | | | [place] [address] | + + + | Home Phone [...] Team Providers + +------+ + | Care Buttonhole Machine Operator Name | Role | Phone [...] | [address] [place], [place] | | | | | [address] [place] | [address] [place], [place] | | | | | [address] [place], [place] | [address] | | | | | [address] | | | | | | [phone] | | | +--------+--------+ + + + [...] | | | | | | [place] [address] | | | | | | [phone] | | | | | | | [...] | | | | | | [place] [address] | | | | | | [phone] | | | | | | | | +--------+ + + + + | 05/21/ | Implant | Cardiology | Daljit Singletary, | Remote Device | 2019 | Monitor | | [facility] | Interrogation | | | | | [place], | (Primary Dx); | | | | | [place] [address] | Pacemaker; | | | | | [phone] | Sinoatrial node | | | | | | dysfunction (HCC) | | | | | | with symptomatic | | | | | | bradycardia | +--------+ + + + + documented as of this encounter Visit Diagnoses Not on filedocumented in this encounter"
--- OUTSIDE RECORDS SUMMARY | ~2020-04-15 | XMS | Encounter Summary ---
Demographics + + + | Address | [address] | | | [place] [address] | + + + | Home Phone [...] Team Providers + +------+ + | Care Services Delivery Driver Name | Role | Phone [...] | | | | | [address] | [place] [address] | | | | | | [place], [place] | Phone: | | | | | | [address] | [phone] | | | | | | Phone: | Fax: | | | | | | [phone] | [phone] | | | | | | Fax: | | | | | | | [phone] | | + + + + + + + Reason for Visit + + + | Reason | Comments | + + + | Annual Exam | | + + + Encounter Details +--------+---------+ + + + | Date | Type | Department | Care Team | Description | +--------+---------+ + + + | 01/11/ | Office | [facility] | Prabhakarmaria doloresKirk | Irritable bowel | | 2019 | Visit | [facility] | MD Bre[address] | syndrome, | | | | [facility] [address] | unspecified type | | | | [address] | [place] [address] | (Primary Dx); | | | | [place], [place] | [phone] | Chronic pain | | | | [address] | | syndrome; Smoker; | | | | [phone] | | Fatigue, unspecified | | | | | | type; | | | | | | Hyperlipidemia, | | | | | | mixed; Preventative | | | | | | health care; | | | | | | Coronary artery | | | | | | disease involving | | | | | | [place] coronary | | | | | | artery of [place] | | | | | | heart [...] PLT 169 06/02/2019 No results found for: [id number] No results found for: FOLATE No results [...] Plan and Recommendations: 1. [facility] lab in [place] for stool studies as outlined above 2. If negative and symptoms persist, recommend capsule endoscopy (this could be completed b y local hoseman or he could return to [place] for this test) 3. Nortryptiline 25mg q HS with instruction to titrate to 50mg q HS after 2 weeks if tolera kevin Follow-Up: with local hoseman Counseling Time: I spent a total of 35 minutes with this patient, of which greater than 50% of the time was spent in counseling. Specific issues that were discussed included a review of the disease, diagnostic tools that help in our management plans for the patient's chronic diarrhea, abdominal cramping and weight loss and goals for treatment. Bridgette Rios MD Towel Rolling Machine Operator Gastroenterology Many co and concerns: Co bleeding Co weak Co tired Co diarrhea Co cramps Co weight changes Co 14 stool in 2 hours this AM Took 8 imodium and 2 lomotil Not taking nortriptyline as prescribed by his GI Also wants a script for hemorrhoids Pending pill endoscopy and colonoscopy May be interested in [place] if no results States was down 210# now 267 Co bedridden and can't leave the house Co incontinence States many ER visits, once a week in [place], tx with IVF and dilaudid Conc re ppm Conc re r shoulder tkr and need for mri Issues with Klonopin Was arrested for DUI, self dc 08/14, had difficult withdrawal ofr 2 weeks Walks daily now for stress and exercise 1-5 miles a day Plan: ASSESSMENT AND PLAN: 1. Approximately 40 minutes of time on this gentleman's case [id number], a lot of it was reviewing outside [...] atypica l. Followed by Dr. Rios at [facility]. I reviewed her notes in the [...] W | | | | | | [place], | | | | | | [place] [address] | | | | | | [phone] | | | | | | | | +--------+ + + + + | 05/01/ | Procedure | Cardiology | | | | 2019 | visit | | | | +--------+ + + + + | 05/01/ | Office | Cardiology | Silvia, | | | 2019 | Visit | | PARISA Vernon [address] | | | | | | [place], | | | | | | [place] [address] | | | | | | [phone] | | | | | | | | +--------+ + + + + | 05/21/ | Implant | Cardiology | Daljit Singletary, | Remote Device | | 2019 | Monitor | | MD [place] | Interrogation | | | | | [place], | (Primary Dx); | | | | | [place] [address] | Pacemaker; | | | | | [phone] | Sinoatrial node | | | | [...] pain | Ordered: 01/11/2020 | | to [facility] | Referral | e | syndrome [...] health care Routine general medical examination at [facility] | | facility | + + | Coronary artery disease involving [place] coronary artery of [place] heart without | | angina pectoris | [...]
--- OUTSIDE RECORDS SUMMARY | ~2020-04-15 | XMS | Encounter Summary ---
Demographics + + + | Address | [address] | | | [place] [address] | + + + | Home Phone [...] [place] | | | | | | [address] | | | | | | [phone] | | | | | | | [...] | | | | | | [place] [address] | | | | | | [phone] | | | | | | | | +--------+ + + + + | 05/01/ | Procedure | Cardiology | | | | 2019 | visit | | | | +--------+ + + + + | 05/01/ | Office | Cardiology | Silvia, | | | 2019 | Visit | | [address] | | | | | | [place], | | | | | | [place] [address] | | | | | | [phone] | | | | | | | | +--------+ + + + + | 05/21/ | Implant | Cardiology | Daljit Singletary, | Remote Device | | 2019 | Monitor | | MD Sim [place] | Interrogation | | | | | [place], | (Primary Dx); | | | | | [place] [address] | Pacemaker; | | | | | [phone] | Sinoatrial node | | | | | | dysfunction (HCC) | | | | | | with symptomatic | | | | | | bradycardia | +--------+ + + + + documented as of this encounter Visit Diagnoses Not on filedocumented in this encounter"
--- OUTSIDE RECORDS SUMMARY | ~2020-04-15 | XMS | Encounter Summary ---
Demographics + + + | Address | [address] | | | [place] [address] | + + + | Home Phone [...] Providers + +------+ + | Care Social Psychologist Name | Role | Phone | + +------+ + PCP | Unavailable | + +------+ + Encounter Details +--------+ + + + + | Date | Type | Department | Care Team | Description | +--------+ + + + + | 05/02/ | [facility] | [facility] | Jonathan, | | | 2009 | Encounter | MED CTR EMERGENCY | Martell Cr MD [address] | | | | | CENTER [address] | [place] | | | | | [place] | [place] [address] | | | | | [address] | [phone] | | | | | [phone] | | | +--------+ + + + [...] W | | | | | | [place], | | | | | | [place] [address] | | | | | | [phone] | | | | | | | | +--------+ + + + + | 05/01/ | Procedure | Cardiology | | | | 2019 | visit | | | | +--------+ + + + + | 05/01/ | Office | Cardiology | Silvia | | | 2019 | Visit | | [address] [address] | | | | | | [place], | | | | | | [place] [address] | | | | | | [phone] | | | | | | | | +--------+ + + + + | 05/21/ | Implant | Cardiology | Daljit Singletary, | Remote Device | 2019 | Monitor | | MD Sim [place] | Interrogation | | | | | [place], | (Primary Dx); | | | | | [place] [address] | Pacemaker; | | | | | [phone] | Sinoatrial node | | | | | | dysfunction (HCC) | | | | | | with symptomatic | | | | | | bradycardia | +--------+ + + + + documented as of this encounter Visit Diagnoses Not on filedocumented in this encounter"
--- OUTSIDE RECORDS SUMMARY | ~2020-04-15 | XMS | Encounter Summary ---
Demographics + + + | Address | [address] | | | [place] [address] | + + + | Home Phone [...] Team Providers + +------+ + | Care Underwriting Operations Manager Name | Role | Phone | + +------+ + | Kirk French MD | PCP | | + +------+ + Encounter Details +--------+ + + + + | Date | Type | Department | Care Team | Description | +--------+ + + + + | 01/25/ | Emergency | [facility] | Donald Callahan, | Strain of lumbar | | 2016 | | MEDICAL CENTER | Russ, DO [address] | paraspinal muscle, | | | | EMERGENCY CENTER | [address] | initial encounter; | | | | [address] | [place], [place] | Left hip pain | | | | [place], [place] | [address] | | | | | [address] | | | | | | [phone] | | | +--------+ + + + [...] + + + +---------+ + + | Wrens-3 Fatty | CAPS, one capsule by | [...] | | | | | | [place] [address] | | | | | | [phone] | | | | | | | | +--------+ + + + + | 05/01/ | Procedure | Cardiology | | | | 2019 | visit | | | | +--------+ + + + + | 05/01/ | Office | Cardiology | Silvia, | | | 2019 | Visit | | PARISA Vernon [address] | | | | | | [place], | | | | | | [place] [address] | | | | | | [phone] | | | | | | | | +--------+ + + + + | 05/21/ | Implant | Cardiology | Daljit Singletary, | Remote Device | | 2019 | Monitor | | [address] [place] | Interrogation | | | | | [place], | (Primary Dx); | | | | | [place] [address] | Pacemaker; | | | | | [phone] | Sinoatrial node | | | | [...] Conversion - 07/06/2019 12:12 AM PDT PINA [id number] years MaleXR | | LUMBAR SPINE LIMITED [...]
--- OUTSIDE RECORDS SUMMARY | ~2020-04-15 | XMS | Encounter Summary ---
Demographics + + + | Address | [address] | | | [place] [address] | + + + | Home Phone [...] Team Providers + +------+ + | Care Paramedical Aide Name | Role | Phone | + +------+ + PCP | Unavailable | + +------+ + Encounter Details +--------+ + + + + | Date | Type | Department | Care Team | Description | +--------+ + + + + | 08/17/ | [facility] | [facility] | Evan Gandara MD | | | 2005 | Encounter | MED CTR LABORATORY | [address] [facility] | | | | | [address] | [place] | | | | | [place] | [address] | | | | | [address] | | | | | | [phone] | | | +--------+ + + + [...] W | | | | | | [place], | | | | | | [place] [address] | | | | | | [phone] | | | | | | | | +--------+ + + + + | 05/01/ | Procedure | Cardiology | | | | 2019 | visit | | | | +--------+ + + + + | 05/01/ | Office | Cardiology | Silvia | | | 2019 | Visit | | [address] | | | | | | [place], | | | | | | [place] [address] | | | | | | [phone] | | | | | | | | +--------+ + + + + | 05/21/ | Implant | Cardiology | Daljit Singletary, | Remote Device | 2019 | Monitor | | MD Sim [place] | Interrogation | | | | | [place], | (Primary Dx); | | | | | [place] [address] | Pacemaker; | | | | | [phone] | Sinoatrial node | | | | | | dysfunction (HCC) | | | | | | with symptomatic | | | | | | bradycardia | +--------+ + + + + documented as of this encounter Visit Diagnoses Not on filedocumented in this encounter"
--- OUTSIDE RECORDS SUMMARY | ~2020-04-15 | XMS | Encounter Summary ---
Demographics + + + | Address | [address] [place] [address] [address] | | | [place] [address] | + + + | Home Phone [...] [place] | | | | | [address] | | + + + + + Care Team Providers + +------+ + | Care Safety Deposit Clerk Name | Role | Phone [...] | | | | l weight | [place], [place] | | | | | | loss | [address] | | | | | | Procedures | Phone: | | | | | | CONSULT TO | [phone] | | | | | | NON - [facility] | Fax: | | | | | | PROVIDER | [phone] | | | | | | CONSULT [...] | 2019 | | Center at [facility] [address] | MD [address] | change location of | | | | [address] | [place], [place] | referral ) | | | | Mailcode: Center | [address] | | | | | for Health and | [phone] | | | | | [facility] 2 | | | | | | [place], [place] | | | | | | [address] | | | | | | [phone] | | | +--------+ + + + [...]
--- OUTSIDE RECORDS SUMMARY | ~2020-04-15 | XMS | Encounter Summary ---
Demographics + + + | Address | [address] | | | [place] [address] | + + + | Home Phone [...] + +------+ + | Care Marine Cargo Specialist Name | Role | Phone | [...] [address] | | | | | [place], | [place], | | | | | [place] [address] | [place] [address] | | | | | [phone] | [phone] | | | | | | | [...] | | | | | | [place] [address] | | | | | | [phone] | | | | | | | [...] | | | | | | [place] [address] | | | | | | [phone] | | | | | | | | +--------+ + + + + | 05/21/ | Implant | Cardiology | Daljit Singletary, | Remote Device | 2019 | Monitor | | [address] [place] | Interrogation | | | | | [place], | (Primary Dx); | | | | | [place] [address] | Pacemaker; | | | | | [phone] | Sinoatrial node | | | | | | dysfunction (HCC) | | | | | | with symptomatic | | | | | | bradycardia | +--------+ + + + + documented as of this encounter Visit Diagnoses Not on filedocumented in this encounter"
--- OUTSIDE RECORDS SUMMARY | ~2020-04-15 | XMS | Encounter Summary ---
Demographics + + + | Address | [address] | | | [place] [address] | + + + | Home Phone [...] Providers + +------+ + | Care Stone Breaker Name | Role | Phone | + +------+ + | Kirk French MD | PCP | | + +------+ + Encounter Details +--------+ + + + + | Date | Type | Department | Care Team | Description | +--------+ + + + + | 03/15/ | Hospital | [facility] | Conversion | | | 2017 | Encounter | [facility] | Transaction, | | | | | [address] | Provider Unknown | | | | | [address] [place] | [phone] | | | | | [address] | | | | | | [phone] | Kirk French | | | | | | MD [place] | | | | | | [address] [place], | | | | | | [place] [address] | | | | | | [phone] | | | | | | | [...] | | | | | | [place] [address] | | | | | | [phone] | | | | | | | | +--------+ + + + + | 05/01/ | Procedure | Cardiology | | | | 2019 | visit | | | | +--------+ + + + + | 05/01/ | Office | Cardiology | Silvia, | | | 2019 | Visit | | [address] | | | | | | [place], | | | | | | [place] [address] | | | | | | [phone] | | | | | | | | +--------+ + + + + | 05/21/ | Implant | Cardiology | Daljit Singletary, | Remote Device | | 2019 | Monitor | | [address] [place] | Interrogation | | | | | [place], | (Primary Dx); | | | | | [place] [address] | Pacemaker; | | | | | [phone] | Sinoatrial node | | | | | | dysfunction (HCC) | | | | | | with symptomatic | | | | | | bradycardia | +--------+ + + + + documented as of this encounter Visit Diagnoses Not on filedocumented in this encounter"
--- OUTSIDE RECORDS SUMMARY | ~2020-04-15 | XMS | Encounter Summary ---
Demographics + + + | Address | [address] | | | [place] [address] | + + + | Home Phone [...] + | 07/13/ | Telephone | [facility] | Kirk French | Referral Question | | 2019 | | [facility] | MD Brea [address] | | | | | [address] | [address] | | | | | [address] | [place] [address] | | | | | [place], [place] | [phone] | | | | | [address] | | | | | | [phone] | | | +--------+ + + + [...] | | | | | | [place] [address] | | | | | | [phone] | | | | | | | | +--------+ + + + + | 05/01/ | Procedure | Cardiology | | | | 2019 | visit | | | | +--------+ + + + + | 05/01/ | Office | Cardiology | Silvia, | | | 2019 | Visit | | PARISA Vernon [address] | | | | | | [place], | | | | | | [place] [address] | | | | | | [phone] | | | | | | | | +--------+ + + + + | 05/21/ | Implant | Cardiology | Daljit Singletary, | Remote Device | | 2019 | Monitor | | [address] [place] [place] | Interrogation | | | | | [place], | (Primary Dx); | | | | | [place] [address] | Pacemaker; | | | | | [phone] | Sinoatrial node | | | | | | dysfunction (HCC) | | | | | | with symptomatic | | | | | | bradycardia | +--------+ + + + + documented as of this encounter Visit Diagnoses Not on filedocumented in this encounter"
--- OUTSIDE RECORDS SUMMARY | ~2020-04-15 | XMS | Encounter Summary ---
Demographics + + + | Address | [address] | | | [place] [address] | + + + | Home Phone [...] Providers + +------+ + | Care Recreation Therapy Director Name | Role | Phone | [...] + | 06/20/ | Telephone | [facility] | Daljit Singletary, | Chest Pain | | 2018 | | CARDIOLOGY [address] | MD [address] [place] | | | | | [place], | [place], | | | | | [place] [address] | [place] [address] | | | | | [phone] | [phone] | | | | | | | [...] | | | | | | [place] [address] | | | | | | [phone] | | | | | | | | +--------+ + + + + | 05/01/ | Procedure | Cardiology | | | | 2019 | visit | | | | +--------+ + + + + | 05/01/ | Office | Cardiology | Silvia, | | | 2019 | Visit | | PARISA Vernon [address] | | | | | | [place], | | | | | | [place] [address] | | | | | | [phone] | | | | | | | | +--------+ + + + + | 05/21/ | Implant | Cardiology | Daljit Singletary, | Remote Device | | 2019 | Monitor | | [address] [facility] | Interrogation | | | | | [place], | (Primary Dx); | | | | | [place] [address] | Pacemaker; | | | | | [phone] | Sinoatrial node | | | | | | dysfunction (HCC) | | | | | | with symptomatic | | | | | | bradycardia | +--------+ + + + + documented as of this encounter Visit Diagnoses Not on filedocumented in this encounter"
--- OUTSIDE RECORDS SUMMARY | ~2020-04-15 | XMS | Encounter Summary ---
Demographics + + + | Address | [address] | | | [place] [address] | + + + | Home Phone [...] Refill | | 2011 | | MEDIC[facility] | DO [address] | | | | | [address] | [place] | | | | | [place] | [address] | | | | | [address] | | | | | | [phone] | | | +--------+--------+ + + + [...] | | | | | | [place] [address] | | | | | | [phone] | | | | | | | [...] | | | | | | [place] [address] | | | | | | [phone] | | | | | | | | +--------+ + + + + | 05/21/ | Implant | Cardiology | Daljit Singletary, | Remote Device | 2019 | Monitor | | [address] [place] | Interrogation | | | | | [place], | (Primary Dx); | | | | | [place] [address] | Pacemaker; | | | | | [phone] | Sinoatrial node | | | | [...]
--- OUTSIDE RECORDS SUMMARY | ~2020-04-15 | XMS | Encounter Summary ---
Demographics + + + | Address | [address] | | | [place] [address] | + + + | Home Phone [...] + | 11/26/ | Telephone | [facility] | Silvia, | Appointment (Needs | | 2017 | | CARDIOLOGY [address] | PAR[address] | rescheduled) | | | | [place], | [place], | | | | | [place] [address] | [place] [address] | | | | | [phone] | [phone] | | | | | | | [...] | | | | | | [place] [address] | | | | | | [phone] | | | | | | | | +--------+ + + + + | 05/01/ | Procedure | Cardiology | | | | 2020 | visit | | | | +--------+ + + + + | 05/01/ | Office | Cardiology | Silvia, | | | 2019 | Visit | | PARISA Vernon [address] | | | | | | [place], | | | | | | [place] [address] | | | | | | [phone] | | | | | | | | +--------+ + + + + | 05/21/ | Implant | Cardiology | Daljit Singletary, | Remote Device | 2019 | Monitor | | [address] [place] [place] | Interrogation | | | | | [place], | (Primary Dx); | | | | | [place] [address] | Pacemaker; | | | | | [phone] | Sinoatrial node | | | | | | dysfunction (HCC) | | | | | | with symptomatic | | | | | | bradycardia | +--------+ + + + + documented as of this encounter Visit Diagnoses Not on filedocumented in this encounter"
--- OUTSIDE RECORDS SUMMARY | ~2020-04-15 | XMS | Encounter Summary ---
Demographics + + + | Address | [address] | | | [place] [address] | + + + | Home Phone [...] Team Providers + +------+ + | Care Returner Name | Role | Phone | + +------+ + PCP | Unavailable | + +------+ + Encounter Details +--------+ + + + + | Date | Type | Department | Care Team | Description | +--------+ + + + + | 01/21/ | Emergency | [facility] | Kirill Dominique | Unspecified Chest | | 2009 | | [facility]ICAL [facility]ENTER | MD Jonas [address] | Pain | | | | EMERGENCY CENTER | [place] | | | | | [address] | [address] | | | | | [place] | [phone] | | | | | [address] | | | | | | [phone] | | | +--------+ + + + [...] | | | | | | [place] [address] | | | | | | [phone] | | | | | | | [...] | | | | | | [place] [address] | | | | | | [phone] | | | | | | | | +--------+ + + + + | 05/21/ | Implant | Cardiology | Daljit Singletary, | Remote Device | | 2019 | Monitor | | [address] [place] | Interrogation | | | | | [place], | (Primary Dx); | | | | | [place] [address] | Pacemaker; | | | | | [phone] | Sinoatrial node | | | | [...]
--- OUTSIDE RECORDS SUMMARY | ~2020-04-15 | XMS | Encounter Summary ---
Demographics + + + | Address | [address] | | | [place] [address] | + + + | Home Phone [...] Providers + +------+ + | Care Green Ware Caster Name | Role | Phone | [...] + | 10/01/ | Office | [facility] | Mary Bradshaw | Injury of left foot, | | 2013 | Visit | CARE [address] | Guy Larkin MD | initial encounter | | | | [place] [address] | [address] | (Primary Dx) | | | | [address] | [place] [address] | | | | | [phone] | [address] | | | | | | | [...] hours. 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 I provided patient with Dr. Bradley's card so he may contact us for results. Patient's best phone number: [phone] Renetta Lockwood RN ary Bradshaw MD - [...] | | | | | | [place] [address] | | | | | | [phone] | | | | | | | | +--------+ + + + + | 05/01/ | Procedure | Cardiology | | | | 2019 | visit | | | | +--------+ + + + + | 05/01/ | Office | Cardiology | Silvia, | | | 2019 | Visit | | PARISA Vernon [address] | | | | | | [place], | | | | | | [place] [address] | | | | | | [phone] | | | | | | | | +--------+ + + + + | 05/21/ | Implant | Cardiology | Daljit Singletary, | Remote Device | | 2019 | Monitor | | MD [address] [facility] | Interrogation | | | | | [place], | (Primary Dx); | | | | | [place] [address] | Pacemaker; | | | | | [phone] | Sinoatrial node | | | | [...] + | MISCELLANEOUS LAB | | | [phone] | + +---------+ + + | MISCELANIOUS LAB | | | [phone] | + +---------+ + + documented in this encounter Visit Diagnoses + + | Diagnosis | + + | Injury of left foot, initial encounter - Primary | + + documented in this encounter
--- OUTSIDE RECORDS SUMMARY | ~2020-04-15 | XMS | Encounter Summary ---
Demographics + + + | Address | [address] | | | [place] [address] | + + + | Home Phone [...] Team Providers + +------+ + | Care Ladies Suit Operator Name | Role | Phone | [...] | | | | | [address] | | | | | | [place], [place] | | | | | | [address] | | | | | | [phone] | | | +--------+ + + + [...] | | | | | | [place] [address] | | | | | | [phone] | | | | | | | | +--------+ + + + + | 05/01/ | Procedure | Cardiology | | | | 2019 | visit | | | | +--------+ + + + + | 05/01/ | Office | Cardiology | Silvia, | | | 2019 | Visit | | PARISA Vernon [address] | | | | | | [place], | | | | | | [place] [address] | | | | | | [phone] | | | | | | | | +--------+ + + + + | 05/21/ | Implant | Cardiology | Daljit Singletary, | Remote Device | 2019 | Monitor | | MD [place] | Interrogation | | | | | [place], | (Primary Dx); | | | | | [place] [address] | Pacemaker; | | | | | [phone] | Sinoatrial node | | | | [...]
--- OUTSIDE RECORDS SUMMARY | ~2020-04-15 | XMS | Encounter Summary ---
Demographics + + + | Address | [address] | | | [place] [address] | + + + | Home Phone [...] [address] [place] | | | | | [place], [place] | [address] | | | | | [address] | [place] [address] | | | | | [phone] | [phone] | | | | | | | [...] W | | | | | | [place], | | | | | | [place] [address] | | | | | | [phone] | | | | | | | | +--------+ + + + + | 05/01/ | Procedure | Cardiology | | | | 2019 | visit | | | | +--------+ + + + + | 05/01/ | Office | Cardiology | Silvia, | | | 2019 | Visit | | PARISA Vernon [address] | | | | | | [place], | | | | | | [place] [address] | | | | | | [phone] | | | | | | | | +--------+ + + + + | 05/21/ | Implant | Cardiology | Daljit Singletary, | Remote Device | 2019 | Monitor | | MD [address] [place] | Interrogation | | | | | [place], | (Primary Dx); | | | | | [place] [address] | Pacemaker; | | | | | [phone] | Sinoatrial node | | | | [...]
--- OUTSIDE RECORDS SUMMARY | ~2020-04-15 | XMS | Encounter Summary ---
Demographics + + + | Address | [address] | | | [place] [address] | + + + | Home Phone [...] Providers + +------+ + | Care Instrument Specialist Name | Role | Phone [...] + + | 06/18/ | Emergency | [facility] | Dom Graham, | Cervical pain (neck) | | 2013 | | MED CTR EMERGENCY | MD [address] | (Primary Dx); | | | | CENTER [address] [place] | [place] | Paresthesia and pain | | | | [place], [place] | [address] | of both upper | | | | [address] | | extremities | | | | [phone] | | | +--------+ + + + [...] cannot be sent through Care Everywhere.PARAESTHESIAS ( [place] CITIZ[place])NECK SPRAIN/STRAIN ([place] CITIZ[place])documented in this encounter Medications at Time of [...] + + + +---------+ + + | Strawberry-3 Fatty | CAPS, one capsule by | [...] W | | | | | | [place], | | | | | | [place] [address] | | | | | | [phone] | | | | | | | | +--------+ + + + + | 05/01/ | Procedure | Cardiology | | | | 2019 | visit | | | | +--------+ + + + + | 05/01/ | Office | Cardiology | Silvia, | | | 2019 | Visit | | PARISA Vernon [address] | | | | | | [place], | | | | | | [place] [address] | | | | | | [phone] | | | | | | | | +--------+ + + + + | 05/21/ | Implant | Cardiology | Daljit Singletary, | Remote Device | | 2019 | Monitor | | MD [address] [place] | Interrogation | | | | | [place], | (Primary Dx); | | | | | [place] [address] | Pacemaker; | | | | | [phone] | Sinoatrial node | | | | [...] + | MISCELLANEOUS LAB | | | [phone] | + +---------+ + + | MISCELANIOUS LAB | | | [phone] | + +---------+ + + documented in this encounter Visit Diagnoses + + | Diagnosis | + + | Cervical pain (neck) - Primary Cervicalgia | + + | Paresthesia and pain of both upper extremities Disturbance of skin sensation | + + documented in this encounter
--- OUTSIDE RECORDS SUMMARY | ~2020-04-15 | XMS | Encounter Summary ---
Demographics + + + | Address | [address] | | | [place] [address] | + + + | Home Phone [...] Team Providers + +------+ + | Care Sanitor Name | Role | Phone | + [...] + + | 05/15/ | Office | [facility] | Matthew Uriarte | Kidney stones | | 2019 | Visit | [address] | MD Tawanna [address] | (Primary Dx) | | | | [place] | AVE [place] | | | | | [address] | [address] | | | | | [phone] | | | +--------+---------+ + + + [...] CV LHC; Surgeon: Daljit Singletary MD; Location: [facility] CV LAB CARDIAC CATHERIZATION N/A 01/25/2019 Procedure: CV Cor Angio; Surgeon: Daljit Singletary MD; Location: [facility] CV LAB COLONOSCOPY N/A 12/24/2017 Procedure: COLONOSCOPY; Surgeon: Emmanuel Daniel MD; Location: [facility] MEDICAL PROCEDURE UNIT COLONOSCOPY N/A 01/05/2019 Procedure: COLONOSCOPY; Surgeon: Emmanuel Daniel MD; Location: [facility] MEDICAL PROCEDURE UNIT EGD 12/24/2017 HARDWARE [...] [facility] MEDICAL PROCEDURE UNIT UPPER GASTROINTESTINAL ENDOSCOPY N/A 01/05/2019 Procedure: EGD; Surgeon: Emmanuel Daniel MD; Location: [facility] MEDICAL PROCEDURE UNIT URETEROSCOPY Left 04/13/2019 Procedure: Cystoscopy, Left ureteroscopy with laser lithotripsy, Left ureteral stent place ment; Surgeon: Matthew Uriarte MD; Location: [facility] MAIN OR VASECTOMY Family History: Family [...] 911, Disp: 100 ta blet, Rfl: 3 [place]-3 Fatty Acids (SALMON OIL-1000 PO), CAPS, one [...] pH, Urine 8.0 5.0 - 8.0 Specific [place] 1.008 1.001 - 1.030 Protein, Urine [...] have not thoroughly proofread this note, and assembler product errors are very likely to occur. CC: Kirk French MD documented in this encounter Plan of Treatment +--------+ + + + + | Date | Type | Specialty | Care Team | Description | +--------+ + + + + | 05/01/ | Appointment | Radiology | Silvia, | | | 2019 | | | [address] | | | | | | [place], | | | | | | [place] [address] | | | | | | [phone] | | | | | | | | +--------+ + + + + | 05/01/ | Procedure | Cardiology | | | | 2019 | visit | | | | +--------+ + + + + | 05/01/ | Office | Cardiology | Silvia, | | | 2019 | Visit | | [address] | | | | | | [place], | | | | | | [place] [address] | | | | | | [phone] | | | | | | | | +--------+ + + + + | 05/21/ | Implant | Cardiology | Daljit Singletary, | Remote Device | 2019 | Monitor | | MD [address] [place] | Interrogation | | | | | [place], | (Primary Dx); | | | | | [place] [address] | Pacemaker; | | | | | [phone] | Sinoatrial node | | | | [...]
--- OUTSIDE RECORDS SUMMARY | ~2020-04-15 | XMS | Encounter Summary ---
Demographics + + + | Address | [address] | | | [place] [address] | + + + | Home Phone [...] loss | [address] | [address] [place], | | | | | Anxiety | [address] | [address] [address] | | | | | disorder, | 101 | [place], | | | | | unspecified | [place], [place] | [place] [address] | | | | | Chronic | [address] | Phone: | | | | | pain | Phone: | [phone] | | | | | syndrome | [phone] | Fax: | | | | | Procedures | Fax: | [phone] | | | | | office visit | [phone] | | +--------+--------+ + + + + Encounter Details +--------+---------+ + + + | Date | Type | Department | Care Team | Description | +--------+---------+ + + + | 12/26/ | Office | [facility] | Emmanuel Daniel MD | Functional diarrhea | | 2019 | Visit | GASTROENTEROLOGY | [address] [place], [place] | (Primary Dx); | | | | [address] [place] | [address] [place], [place] | Gastrointestinal | | | | [address] [place], [place] | [address] | hemorrhage | | | | [address] | | associated with | | | | [phone] | | anorectal source; | | | [...] | | | | | | [place] [address] | | | | | | [phone] | | | | | | | | +--------+ + + + + | 05/01/ | Procedure | Cardiology | | | | 2019 | visit | | | | +--------+ + + + + | 05/01/ | Office | Cardiology | Silvia, | | | 2019 | Visit | | PARISA Vernon [address] | | | | | | [place], | | | | | | [place] [address] | | | | | | [phone] | | | | | | | | +--------+ + + + + | 05/21/ | Implant | Cardiology | Daljit Singletary, | Remote Device | | 2019 | Monitor | | [address] [facility] | Interrogation | | | | | [place], | (Primary Dx); | | | | | [place] [address] | Pacemaker; | | | | | [phone] | Sinoatrial node | | | | [...]
--- OUTSIDE RECORDS SUMMARY | ~2020-04-15 | XMS | Encounter Summary ---
Demographics + + + | Address | [address] | | | [place] [address] | + + + | Home Phone [...] Team Providers + +------+ + | Care Debt Counselor Name | Role | Phone | + +------+ + PCP | Unavailable | + +------+ + Encounter Details +--------+ + + + + | Date | Type | Department | Care Team | Description | +--------+ + + + + | 03/08/ | [facility] | [facility] | Emmanuel Daniel MD | | | 2006 | Encounter | MED CTR GENERIC OP | [address] [place] | | | | | CONV DEPT [address] | [address] [place] | | | | | [place], | [address] | | | | | [place] [address] | | | | | | [phone] | | | +--------+ + + + [...] | | | | | | [place] [address] | | | | | | [phone] | | | | | | | [...] | | | | | | [place] [address] | | | | | | [phone] | | | | | | | | +--------+ + + + + | 05/21/ | Implant | Cardiology | Daljit Singletary, | Remote Device | 2019 | Monitor | | [address] [place] | Interrogation | | | | | [place], | (Primary Dx); | | | | | [place] [address] | Pacemaker; | | | | | [phone] | Sinoatrial node | | | | | | dysfunction (HCC) | | | | | | with symptomatic | | | | | | bradycardia | +--------+ + + + + documented as of this encounter Visit Diagnoses Not on filedocumented in this encounter"
--- OUTSIDE RECORDS SUMMARY | ~2020-04-15 | XMS | Encounter Summary ---
Demographics + + + | Address | [address] [place] [address] [address] | | | [place] [address] | + + + | Home Phone [...] [place] | | | | | [address] | | + + + + + Care Team Providers + +------+ + | Care Mr Teacher Name | Role | Phone | [...] [facility] [address] | [facility] | (capsule referral) | | | | [address] | Road [place], [place] | | | | | Mailcode: Center | [address] | | | | | for Health and | | | | | | [facility], [facility] 2 | | | | | | [place], [place] | | | | | | [address] | | | | | | [phone] | | | +--------+ + + + [...]
--- OUTSIDE RECORDS SUMMARY | ~2020-04-15 | XMS | Encounter Summary ---
Demographics + + + | Address | [address] [place] [address] [address] | | | [place] [address] | + + + | Home Phone [...] [place] | | | | | [address] | | + + + + + Care Team Providers + +------+ + | Care [employer] Officer Name | Role | Phone | [...] | | | [address] | [place], [place] | | | | | Mailcode: [place] | [address] | | | | | for Health and | [phone] | | | | | [facility], [facility] 2 | | | | | | [facility] [place] | | | | | | [address] | | | | | | [phone] | | | +--------+ + + + [...]
--- OUTSIDE RECORDS SUMMARY | ~2020-04-15 | XMS | Encounter Summary ---
Demographics + + + | Address | [address] | | | [place] [address] | + + + | Home Phone [...] Team Providers + +------+ + | Care Lmft Name | Role | Phone | + [...] | | | pain | [address] [place] | [address] | | | | | Procedures | [place] | [place], | | | | | [place] Nuclear | [place] | [place] | | | | | Stress Test | [address] | [address] | | | | | (Vasodilator | Phone: | Phone: | | | | | ) CHG | [phone] | [phone] | | | | | MYOCARDIAL | Fax: | Fax: | | | | | SPECT | [phone] | [phone] | | | | | MULTIPLE | | | | | | | STUDIES | | | +--------+--------+ + + + + Encounter Details +--------+ + + + + | Date | Type | Department | Care Team | Description | +--------+ + + + + | 12/06/ | Hospital | [facility] | Geri Angel, | Other chest pain | | 2013 | Encounter | MED CTR XRAY [address] | LAB SUPPORT SERVICE TECH [address] [place] | | | | | [place] | [place] | | | | | [place] [address] | [address] | | | | | [phone] | | | +--------+ + + + [...] | | | | | | [place] [address] | | | | | | [phone] | | | | | | | | +--------+ + + + + | 05/01/ | Procedure | Cardiology | | | | 2019 | visit | | | | +--------+ + + + + | 05/01/ | Office | Cardiology | Silvia | | | 2019 | Visit | | PARISA [place] [address] | | | | | | [place], | | | | | | [place] [address] | | | | | | [phone] | | | | | | | | +--------+ + + + + | 05/21/ | Implant | Cardiology | Daljit Singletary, | Remote Device | 2019 | Monitor | | [address] [place] | Interrogation | | | | | [place], | (Primary Dx); | | | | | [place] [address] | Pacemaker; | | | | | [phone] | Sinoatrial node | | | | [...] + | [facility] | [place] | | Department [address] [place] | [address] | | [ rep ct [address]] [ rep [facility] | | st zip] Signed | - IMAGING | | | | | Patient Name: MOE GAY | | | Physician: JACKLYN : 1960 Age: 53 Sex: M Unit | | | #: [id number] Exam Date: 12/06/13 Location: | | | [facility] Report #: [id number] Page: | | | %(RAD)RES..mtdd.print.filter("pg") of %(RAD) | | | RES..mtdd.print.filter("tpg") | | | | | | Accession Number: [id number] | | | PERSANTINE SESTAMIBI STRESS TEST, [...] Transcribed Date/Time: 12/07/2013 08:18 | | | Geodesist: <<Signature on File>> | | | | | | Daljit Singletary MD [facility] FASE12/07/13 1321 <Electronically signed | | | by Daljit Singletary MD, [facility], FACDamien, ADELINE, YEN> Daljit | | | MD Gemini [facility] ADELINE 12/07/13 0701 Geodesist: Cheyennex | | | [id number]/16/14 0818 PARISA Garcia | | + + + + + + + + | Performing | Address | City/State/Zipcode | Phone Number | | Organization | | | | + + + + + | [facility] | [address] | [place] | [phone] | | [facility] | | [address] | | | - IMAGING | | | | + + + + + documented in this encounter Visit Diagnoses + + | Diagnosis | + + | Other chest pain | + + documented in this encounter
--- OUTSIDE RECORDS SUMMARY | ~2020-04-15 | XMS | Encounter Summary ---
Demographics + + + | Address | [address] | | | [place] [address] | + + + | Home Phone [...] Team Providers + +------+ + | Care Chromosomal Disorders Counselor Name | Role | Phone | + +------+ + | Kirk French MD | PCP | | + +------+ + Encounter Details +--------+ + + + + | Date | Type | Department | Care Team | Description | +--------+ + + + + | 04/07/ | Hospital | [facility] | Pia Akhtar | Spinal stenosis of | | 2016 | Encounter | MED CTR XRAY [address] | MD [address] | lumbar region | | | | [place] | [address] | | | | | [place] [address] | [place] [address] | | | | | [phone] | [phone] | | | | | | | [...] + + +---------+ + + | [place]-3 Fatty | CAPS, one capsule by [...] | | | | | | [place] [address] | | | | | | [phone] | | | | | | | | +--------+ + + + + | 05/01/ | Procedure | Cardiology | | | | 2019 | visit | | | | +--------+ + + + + | 05/01/ | Office | Cardiology | Silvia | | | 2019 | Visit | | Janeen, STEREO OPERATOR [address] | | | | | | [place], | | | | | | [place] [address] | | | | | | [phone] | | | | | | | | +--------+ + + + + | 05/21/ | Implant | Cardiology | Daljit Singletary, | Remote Device | | 2020 | Monitor | | [address] [place] | Interrogation | | | | | [place], | (Primary Dx); | | | | | [place] [address] | Pacemaker; | | | | | [phone] | Sinoatrial node | | | | [...]
--- OUTSIDE RECORDS SUMMARY | ~2020-04-15 | XMS | Encounter Summary ---
Demographics + + + | Address | [address] | | | [place] [address] | + + + | Home Phone [...] Providers + +------+ + | Care Upper Cutter Out Name | Role | Phone | + +------+ + PCP | Unavailable | + +------+ + Encounter Details +--------+ + + + + | Date | Type | Department | Care Team | Description | +--------+ + + + + | 09/12/ | Hospital | [facility] | | | | 1993 | Encounter | MED CTR EMERGENCY | | | | | | CENTER [address] | | | | | | [place] | | | | | | [address] | | | | | | [phone] | | | +--------+ + + + [...] | | | | | | [place] [address] | | | | | | [phone] | | | | | | | | +--------+ + + + + | 05/01/ | Procedure | Cardiology | | | | 2019 | visit | | | | +--------+ + + + + | 05/01/ | Office | Cardiology | Silvia, | | | 2019 | Visit | | [address] | | | | | | [place], | | | | | | [place] [address] | | | | | | [phone] | | | | | | | | +--------+ + + + + | 05/21/ | Implant | Cardiology | Daljit Singletary, | Remote Device | 2019 | Monitor | | [address] [place] | Interrogation | | | | | [place], | (Primary Dx); | | | | | [place] [address] | Pacemaker; | | | | | [phone] | Sinoatrial node | | | | | | dysfunction (HCC) | | | | | | with symptomatic | | | | | | bradycardia | +--------+ + + + + documented as of this encounter Visit Diagnoses Not on filedocumented in this encounter"
--- OUTSIDE RECORDS SUMMARY | ~2020-04-15 | XMS | Encounter Summary ---
Demographics + + + | Address | [address] | | | [place] [address] | + + + | Home Phone [...] Providers + +------+ + | Care Third Mate Name | Role | Phone | + +------+ + PCP | Unavailable | + +------+ + Encounter Details +--------+ + + + + | Date | Type | Department | Care Team | Description | +--------+ + + + + | 06/13/ | [facility] | [facility] | Daljit Singletary, | | | 2008 | Encounter | MED CTR LABORATORY | [address] | | | | | [address] [place] | [address] [place], | | | | | [place] | [place] [address] | | | | | [address] | [phone] | | | | | [phone] | | | +--------+ + + + [...] | | | | | | [place], | | | | | | [place] [address] | | | | | | [phone] | | | | | | | | +--------+ + + + + | 05/01/ | Procedure | Cardiology | | | | 2019 | visit | | | | +--------+ + + + + | 05/01/ | Office | Cardiology | Silvia | | | 2019 | Visit | | PARISA Vernon [address] | | | | | | [place], | | | | | | [place] [address] | | | | | | [phone] | | | | | | | | +--------+ + + + + | 05/21/ | Implant | Cardiology | Daljit Singletary, | Remote Device | 2019 | Monitor | | MD [address] [place] | Interrogation | | | | | [place], | (Primary Dx); | | | | | [place] [address] | Pacemaker; | | | | | [phone] | Sinoatrial node | | | | | | dysfunction (HCC) | | | | | | with symptomatic | | | | | | bradycardia | +--------+ + + + + documented as of this encounter Visit Diagnoses Not on filedocumented in this encounter"
--- OUTSIDE RECORDS SUMMARY | ~2020-04-15 | XMS | Encounter Summary ---
Demographics + + + | Address | [address] | | | [place] [address] | + + + | Home Phone [...] Providers + +------+ + | Care Rn Testing Name | Role | Phone | [...] Provider Unknown | | | | | [place], [place] | [phone] | | | | | [address] | | | | | | [phone] | | | +--------+ + + + [...] + + + +---------+ + + | [place]-3 Fatty | CAPS, one capsule by | [...] | | | | | | [place], | | | | | | [place] [address] | | | | | | [phone] | | | | | | | | +--------+ + + + + | 05/01/ | Procedure | Cardiology | | | | 2019 | visit | | | | +--------+ + + + + | 05/01/ | Office | Cardiology | Silvia, | | | 2019 | Visit | | PARISA Vernon [address] | | | | | | [place], | | | | | | [place] [address] | | | | | | [phone] | | | | | | | | +--------+ + + + + | 05/21/ | Implant | Cardiology | Daljit Singletary, | Remote Device | | 2019 | Monitor | | [address] [place] | Interrogation | | | | | [place], | (Primary Dx); | | | | | [place] [address] | Pacemaker; | | | | | [phone] | Sinoatrial node | | | | [...]
--- OUTSIDE RECORDS SUMMARY | ~2020-04-15 | XMS | Encounter Summary ---
Demographics + + + | Address | [address] | | | [place] [address] | + + + | Home Phone [...] Team Providers + +------+ + | Care Forging Die Finisher Name | Role | Phone | + +------+ + | Kirk French MD | PCP | | + +------+ + Encounter Details +--------+ + + + + | Date | Type | Department | Care Team | Description | +--------+ + + + + | 12/24/ | Anesthesia | [facility] | Jarett Barakat | | | 2018 | Event | MED CTR MP INTRA OP | P, MD [address] | | | | | [address] | [place], [place] | | | | | [place], [place] | [address] | | | | | [address] | [phone] | | | | | [phone] | | | | | | | Arthur Wesley, | | | | | | [address] | | | | | | [place], [place] | | | | | | [address] | | | | | | | [...] 12/24/17 1435 by | | eral | cvtp-[id number]-[id number] catheter system; | Desmond Teresa RN | [...] | | | | | | [place] [address] | | | | | | [phone] | | | | | | | | +--------+ + + + + | 05/01/ | Procedure | Cardiology | | | | 2019 | visit | | | | +--------+ + + + + | 05/01/ | Office | Cardiology | Silvia | | | 2019 | Visit | | Janeen, PICKLE PROCESSOR [address] | | | | | | [place], | | | | | | [place] [address] | | | | | | [phone] | | | | | | | | +--------+ + + + + | 05/21/ | Implant | Cardiology | Daljit Singletary, | Remote Device | | 2020 | Monitor | | [address] | Interrogation | | | | | [place], | (Primary Dx); | | | | | [place] [address] | Pacemaker; | | | | | [phone] | Sinoatrial node | | | | [...]
--- OUTSIDE RECORDS SUMMARY | ~2020-04-15 | XMS | Encounter Summary ---
Demographics + + + | Address | [address] | | | [place] [address] | + + + | Home Phone [...] Providers + +------+ + | Care Laborer Tree Tapping Name | Role | Phone | + +------+ + PCP | Unavailable | + +------+ + Encounter Details +--------+ + + + + | Date | Type | Department | Care Team | Description | +--------+ + + + + | 01/21/ | Emergency | [facility] | Kirill Dominique | Unspecified Chest | | 2009 | | [facility] | MD Jonas [address] | Pain | | | | EMERGENCY CENTER | [address] [place] | | | | | [address] | [address] | | | | | [place] | [phone] | | | | | [address] | | | | | | [phone] | | | +--------+ + + + [...] W | | | | | | [place], | | | | | | [place] [address] | | | | | | [phone] | | | | | | | | +--------+ + + + + | 05/01/ | Procedure | Cardiology | | | | 2019 | visit | | | | +--------+ + + + + | 05/01/ | Office | Cardiology | Silvia, | | | 2019 | Visit | | PARISA Vernon [address] | | | | | | [place], | | | | | | [place] [address] | | | | | | [phone] | | | | | | | | +--------+ + + + + | 05/21/ | Implant | Cardiology | Daljit Singletary, | Remote Device | | 2019 | Monitor | | [address] [place] | Interrogation | | | | | [place], | (Primary Dx); | | | | | [place] [address] | Pacemaker; | | | | | [phone] | Sinoatrial node | | | | [...]
--- OUTSIDE RECORDS SUMMARY | ~2020-04-15 | XMS | Encounter Summary ---
Demographics + + + | Address | [address] | | | [place] [address] | + + + | Home Phone [...] Team Providers + +------+ + | Care Fifth Hand Name | Role | Phone | [...] [address] [place] | | | | | [place], [place] | [address] | | | | | [address] | [place] [address] | | | | | [phone] | [phone] | | | | | | | [...] | | | | | | [place], | | | | | | [place] [address] | | | | | | [phone] | | | | | | | | +--------+ + + + + | 05/01/ | Procedure | Cardiology | | | | 2019 | visit | | | | +--------+ + + + + | 05/01/ | Office | Cardiology | Silvia, | | | 2019 | Visit | | PARISA Vernon [address] | | | | | | [place], | | | | | | [place] [address] | | | | | | [phone] | | | | | | | | +--------+ + + + + | 05/21/ | Implant | Cardiology | Daljit Singletary, | Remote Device | 2019 | Monitor | | MD [address] [place] | Interrogation | | | | | [place], | (Primary Dx); | | | | | [place] [address] | Pacemaker; | | | | | [phone] | Sinoatrial node | | | | [...]
--- OUTSIDE RECORDS SUMMARY | ~2020-04-15 | XMS | Encounter Summary ---
Demographics + + + | Address | [address] | | | [place] [address] | + + + | Home Phone [...] Providers + +------+ + | Care Plastic Shaper Name | Role | Phone | [...] Provider Unknown | | | | | [place], [place] | [phone] | | | | | [address] | | | | | | [phone] | | | +--------+ + + + [...] + + + +---------+ + + | [place]-3 Fatty | CAPS, one capsule by | [...] | | | | | | | #[id number], exp 07/2016 | | | | | [...] | | | | | | [place] [address] | | | | | | [phone] | | | | | | | | +--------+ + + + + | 05/01/ | Procedure | Cardiology | | | | 2019 | visit | | | | +--------+ + + + + | 05/01/ | Office | Cardiology | Silvia, | | | 2019 | Visit | | PARISA Vernon [address] | | | | | | [place], | | | | | | [place] [address] | | | | | | [phone] | | | | | | | | +--------+ + + + + | 05/21/ | Implant | Cardiology | Daljit Singletary, | Remote Device | | 2020 | Monitor | | [address] [place] [place] | Interrogation | | | | | [place], | (Primary Dx); | | | | | [place] [address] | Pacemaker; | | | | | [phone] | Sinoatrial node | | | | [...]
--- OUTSIDE RECORDS SUMMARY | ~2020-04-15 | XMS | Encounter Summary ---
Demographics + + + | Address | [address] | | | [place] [address] | + + + | Home Phone [...] Providers + +------+ + | Care Ice Puller Name | Role | Phone | [...] | | | Diarrhea/ | [address] | [place], [place] | | | | | Rectal | [place], [place] | [address] | | | | | Bleeding | [address] | Phone: | | | | | from [facility] | Phone: | [phone] | | | | | referral. | [phone] | Fax: | | | | | | Fax: | [phone] | | | | | | [phone] | | + + + + + [...] + + | 01/21/ | Telephone | [facility] | Kirk French | Other (wanted to let | | 2019 | | [facility] | MD Brea [address] | us know the St. | | | | PRIMARY CARE [address] | [address] | Apolonia'gena cancelled his | | | | [address] | [place] [address] | appointment for a | | | | [place], [place] | [phone] | colonoscopy) | | | | [address] | | | | | | [phone] | | | +--------+ + + + [...] | | | | | | [place] [address] | | | | | | [phone] | | | | | | | [...] | | | | | | [place] [address] | | | | | | [phone] | | | | | | | | +--------+ + + + + | 05/21/ | Implant | Cardiology | Daljit Singletary, | Remote Device | | 2019 | Monitor | | MD [address] [place] | Interrogation | | | | | [place], | (Primary Dx); | | | | | [place] [address] | Pacemaker; | | | | | [phone] | Sinoatrial node | | | | [...]
--- OUTSIDE RECORDS SUMMARY | ~2020-04-15 | XMS | Encounter Summary ---
Demographics + + + | Address | [address] | | | [place] [address] | + + + | Home Phone [...] | 06/26/ | Hospital | [facility] | Michael Amanda, | Diplopia | | 2012 | Encounter | MED CTR LABORATORY | DO [address] | | | | | [address] [place] | [place], [place] | | | | | [place], [place] | [address] | | | | | [address] | | | | | | [phone] | | | +--------+ + + + [...] + + + +---------+ + + | [place]rose-3 Fatty | CAPS, one capsule by | [...] [address] | | | | | | [address] [place], | | | | | | [place] [address] | | | | | | [phone] | | | | | | | | +--------+ + + + + | 05/01/ | Procedure | Cardiology | | | | 2019 | visit | | | | +--------+ + + + + | 05/01/ | Office | Cardiology | Silvia, | | | 2019 | Visit | | PARISA Vernon [address] | | | | | | [address] [place], | | | | | | [place] [address] | | | | | | [phone] | | | | | | | | +--------+ + + + + | 05/21/ | Implant | Cardiology | Daljit Singletary, | Remote Device | | 2020 | Monitor | | MD [address] [facility] | Interrogation | | | | | [place], | (Primary Dx); | | | | | [place] [address] | Pacemaker; | | | | | [phone] | Sinoatrial node | | | | [...] | mg/L indicate possible | | [facility] | | | | infection, trauma, [...] [address] | [place] | [phone] | | [facility] | | [address] | | | - LABORATORY | | | | + + + + + | [facility] | [address] | [place], [place] | | | [facility] | | [address], [facility] | | [...] performed on the Javid | uIU/mL | [facility] | | | | [place] [facility] | | MEDICAL | | | [...] + | [facility] | [address] | [place] | [phone] | | [facility] | | [address] | | | - LABORATORY | | | | + + + + + | [facility] | [address] | [place], [place] | | | [facility] | | [address] [place] [address] | | | - LABORATORY | | [...] + | [facility] | [address] | [place] | [phone] | | [facility] | | [address] | | | - LABORATORY | | | | + + + + + | [facility] | [address] | [place], [place] | | | [facility] | | [address], [facility] | | [...] + + | Performing | Address | City/[facility]/Zipcode | Phone Number | | Organization | | | | + + + + + | [facility] | [address] | [place], [place] | [phone] | | [facility] | | [address] | | | - LABORATORY | | | | + + + + + | [facility] | [address] | [place] | | | [facility] | | [address], [facility] | | [...] + | [facility] | [address] | [place] | [phone] | | [facility] | | [address] | | | - LABORATORY | | | | + + + + + | [facility] | [address] | [place], [place] | | | [facility] | | [address] [place] [address] | | | - LABORATORY | | [...] + | [facility] | [address] | [place] | [phone] | | [facility] | | [address] | | | - LABORATORY | | | | + + + + + | [facility] | [address] | [place] | | | [facility] | | [id number] [place] [address] | | | - LABORATORY | | | | + + + + + documented in this encounter Visit Diagnoses + + | Diagnosis | + + | Diplopia | + + documented in this encounter"
--- OUTSIDE RECORDS SUMMARY | ~2020-04-15 | XMS | Encounter Summary ---
Demographics + + + | Address | [address] | | | [place] [address] | + + + | Home Phone [...] Providers + +------+ + | Care Hand Mexican Food Maker Name | Role | Phone | [...] + | 01/25/ | Office | [facility] | Daljit Singletary, | Other chest pain | | 2012 | Visit | CARDIOLOGY [address] | [address] | (Primary Dx); PVC's | | | | [place], | [place], | (premature | | | | [place] [address] | [place] [address] | ventricular | | | | [phone] | [phone] | contractions) | | | | | [...] + documented in this encounter Progress Notes Dajlit Singletary MD - 01/25/2013 1:25 PM PSTFormatting [...] note, lorraine painting has appointment to see wound specialist for PVCs ablations consultation on January [...] tablet Take 1,000 mg by mouth Daily. Glen-3 Fatty Acids (SALMON OIL-1000 PO) CAPS, [...] tablet Take 1,000 mg by mouth Daily. Glen-3 Fatty Acids (SALMON OIL-1000 PO) CAPS, [...] | | | | | | [place] [address] | | | | | | [phone] | | | | | | | | +--------+ + + + + | 05/01/ | Procedure | Cardiology | | | | 2019 | visit | | | | +--------+ + + + + | 05/01/ | Office | Cardiology | Silvia | | | 2019 | Visit | | Janeen, SHEET SEWER [address] | | | | | | [place], | | | | | | [place] [address] | | | | | | [phone] | | | | | | | | +--------+ + + + + | 05/21/ | Implant | Cardiology | Daljit Singletary, | Remote Device | | 2020 | Monitor | | [address] [place] | Interrogation | | | | | [place], | (Primary Dx); | | | | | [place] [address] | Pacemaker; | | | | | [phone] | Sinoatrial node | | | | [...]
--- OUTSIDE RECORDS SUMMARY | ~2020-04-15 | XMS | Encounter Summary ---
Demographics + + + | Address | [address] | | | [place] [address] | + + + | Home Phone [...] Team Providers + +------+ + | Care Transcripter Name | Role | Phone | + [...] | RN | | | | | [place], | | | | | | [place] [address] | | | | | | [phone] | | | +--------+ + + + [...] | | | | | | [place] [address] | | | | | | [phone] | | | | | | | [...] | | | | | | [place] [address] | | | | | | [phone] | | | | | | | | +--------+ + + + + | 05/21/ | Implant | Cardiology | Daljit Singletary, | Remote Device | 2019 | Monitor | | [address] [place] | Interrogation | | | | | [place], | (Primary Dx); | | | | | [place] [address] | Pacemaker; | | | | | [phone] | Sinoatrial node | | | | | | dysfunction (HCC) | | | | | | with symptomatic | | | | | | bradycardia | +--------+ + + + + documented as of this encounter Visit Diagnoses Not on filedocumented in this encounter"
--- OUTSIDE RECORDS SUMMARY | ~2020-04-15 | XMS | Encounter Summary ---
Demographics + + + | Address | [address] | | | [place] [address] | + + + | Home Phone [...] Team Providers + +------+ + | Care Streetsweeper Operator Name | Role | Phone | + +------+ + | Michael Amanda DO | PCP | | + +------+ + Encounter Details +--------+ + + + + | Date | Type | Department | Care Team | Description | +--------+ + + + + | 09/22/ | Hospital | [facility] | Bahman Gant MD | | | 2012 | Encounter | MED CTR XRAY [address] | [address] [place] | | | | | [place] | [address] [place], | | | | | [place] [address] | [place] [address] | | | | | [phone] | [phone] | | | | | | | [...] | | | | | | [place] [address] | | | | | | [phone] | | | | | | | | +--------+ + + + + | 05/01/ | Procedure | Cardiology | | | | 2019 | visit | | | | +--------+ + + + + | 05/01/ | Office | Cardiology | Silvia, | | | 2019 | Visit | | PARISA Vernon [address] | | | | | | [place], | | | | | | [place] [address] | | | | | | [phone] | | | | | | | | +--------+ + + + + | 05/21/ | Implant | Cardiology | Daljit Singletary, | Remote Device | 2019 | Monitor | | [address] [facility] | Interrogation | | | | | [place], | (Primary Dx); | | | | | [place] [address] | Pacemaker; | | | | | [phone] | Sinoatrial node | | | | | | dysfunction (HCC) | | | | | | with symptomatic | | | | | | bradycardia | +--------+ + + + + documented as of this encounter Visit Diagnoses Not on filedocumented in this encounter"
--- OUTSIDE RECORDS SUMMARY | ~2020-04-15 | XMS | Encounter Summary ---
Demographics + + + | Address | [address] | | | [place] [address] | + + + | Home Phone [...] Providers + +------+ + | Care Preschool Education Director Name | Role | Phone | + +------+ + | Michael Amanda DO | PCP | | + +------+ + Encounter Details +--------+ + + + + | Date | Type | Department | Care Team | Description | +--------+ + + + + | 12/25/ | Hospital | [facility] | Daljit Singletary, | | | 2013 | Encounter | MED CTR XRAY [address] | | | | | [address] [place] | [address], | | | | | [place] [address] | [place] [address] | | | | | [phone] | [phone] | | | | | | | [...] + + + +---------+ + + | [place]-3 Fatty | CAPS, one capsule by [...] | | | | | | [place] [address] | | | | | | [phone] | | | | | | | | +--------+ + + + + | 05/01/ | Procedure | Cardiology | | | | 2019 | visit | | | | +--------+ + + + + | 05/01/ | Office | Cardiology | Silvia, | | | 2019 | Visit | | PARISA [place] [address] | | | | | | [place], | | | | | | [place] [address] | | | | | | [phone] | | | | | | | | +--------+ + + + + | 05/21/ | Implant | Cardiology | Daljit Singletary, | Remote Device | | 2019 | Monitor | | [address] | Interrogation | | | | | [place], | (Primary Dx); | | | | | [place] [address] | Pacemaker; | | | | | [phone] | Sinoatrial node | | | | [...] | [facility] Diagnostic Imaging | [place] | | Department [address] [place] [address] | [facility] | | [ rep ct street[address]] [ rep [facility] | | st zip] Signed | - IMAGING | | | | | Patient Name: MOE GAY | | | Physician: MIGUELINA : 1960 Age: 53 Sex: M Unit | | | #: [id number] Exam Date: 12/25/13 Location: | | | SDS SDS-D Report #: [id number] Page: | | | %(RAD)RES..mtdd.print.filter("pg") of %(RAD) | | | RES..mtdd.print.filter("tpg") | | | | | | Accession Number: [id number] | | | LEFT HEART CATHETERIZATION, 12/25/2013 [...] the patient was taken to the cardiac entry level lab technician. She | | | was prepared and draped in the usual fashion. Under sterile | | | technique and local anesthesia, percutaneous access was obtained | | | using #5 Djiboutian sheath in the right radial artery. Right heart cath | | | was not performed on this patient. Left ventriculography was | | | performed using #5 multipurpose diagnostic catheter. The selective | | | coronary angiography was then performed in several sagittal and | | | oblique projections using #5 multipurpose and #5 Djiboutian JL 3.5 | | | diagnostic catheters. [...] Transcribed | | | Date/Time: 12/25/2013 11:52 Hub Lead: | | | <<Signature on File>> | | | Daljit | | | MD Gemini [facility] FAS12/25/13 1343 <Electronically signed by | | | Daljit Singletary MD, [facility], FACP, ADELINE, YEN> Daljit | | | MD Gemini [facility] ADELINE 12/25/13 1035 Hub Lead: Jessica | | | Iygihbsnnkrod19/03/14 1152 | | + + + + + + + + | Performing | Address | City/State/Zipcode | Phone Number | | Organization | | | | + + + + + | [facility] | [address] | [place] | [phone] | | [facility] | | [address] | | | - IMAGING | | | | + + + + + documented in this encounter Visit Diagnoses Not on filedocumented in this encounter
--- OUTSIDE RECORDS SUMMARY | ~2020-04-15 | XMS | Encounter Summary ---
Demographics + + + | Address | [address] | | | [place] [address] | + + + | Home Phone [...] Providers + +------+ + | Care Trauma Nurse Name | Role | Phone | + +------+ + | Kirk French MD | PCP | | + +------+ + Encounter Details +--------+ + + + + | Date | Type | Department | Care Team | Description | +--------+ + + + + | 01/05/ | Hospital | [facility] | Emmanuel Daniel MD | Functional diarrhea | | 2019 | Encounter | MED CTR MP INTRA OP | [address], [place] | (Primary Dx); Weight | | | | [address] | [address] [place], [place] | loss | | | | [place], [place] | [address] | | | | | [address] | | | | | | [phone] | | | +--------+ + + + [...] for a few hours. Date Last Reviewed: 09/22/201619998035-3535 [employer]. [address] [place] [address], [place] [address]. All righ ts reserved. This information is [...] vomiting, or vomiting blood Date Last Reviewed: 05/22/201619994788-4651 [employer]. [address] [place] [address]. All [facility] ts reserved. This information is not [...] You can't be awakened Date Last Reviewed: 09/08/201619997297-3822 [employer]. [address] [place] [address], [place] [address]. All righ ts reserved. This information is [...] + + + +---------+ + + | [place]-3 Fatty | CAPS, one capsule by | [...] | | | | | | [place] [address] | | | | | | [phone] | | | | | | | [...] | | | | | | [place] [address] | | | | | | [phone] | | | | | | | | +--------+ + + + + | 05/21/ | Implant | Cardiology | Daljit Singletary, | Remote Device | 2019 | Monitor | | [address] | Interrogation | | | | | [place], | (Primary Dx); | | | | | [place] [address] | Pacemaker; | | | | | [phone] | Sinoatrial node | | | | [...] | REFERENCE LAB | | [place] [phone] Phone Technician: Miguel Galarza MD, Phone: | [facility] | | [phone] | | + + + + + + + + | Performing | Address | City/State/Zipcode | Phone Number | | Organization | | | | + + + + + | REFERENCE LAB | [address] | [place], [place] | [phone] | | [facility] | [address] | [address] | | + + + + + [...] [address], | REFERENCE LAB | | [place], [place] [address] Phone Technician: Miguel Galarza MD, Phone: | [facility] | | [phone] | | + + + + + + + + | Performing | Address | City/State/Zipcode | Phone Number | | Organization | | | | + + + + + | REFERENCE LAB | [address] | [place], [place] | [phone] | | [facility] | [facility] | [address] | | + + + + + [...] [address] | [place] | [phone] | | [facility] | | [address] | | | - LABORATORY | | [...] [address] | [place] | [phone] | | [facility] | | [address] | | | - LABORATORY | | [...] [address] | [place] | [phone] | | [facility] | | [address] | | | - LABORATORY | | [...] | | Antigen, | | | [facility] | | | Stool | [...] [address] | [place] | [phone] | | [facility] | | [address] | | | - LABORATORY | | [...] | [address] | [place], [place] | [phone] | | [facility] | | [address] | | | - LABORATORY | | [...] [address] | [place] | [phone] | | [facility] | | [address] | | | - LABORATORY | | | | + + + + + EGD (01/05/2019 8:36 AM PST) + + | Specimen | + + | | + + + + -+ | Narrative | Performed At | + + -+ | | [facility] | | GastroenterologyPatient Name: Moe SanchezProcedpasha Date: | PROVATION | | 01/05/2019 8:36 AMMRN: [id number] #: [id number] of : | | | 9Admit Type: AmbulatoryAge: 58Room: [facility] 01Gender: MaleNote | | | Status: FinalizedAttending MD: Emmanuel Daniel , MDProcedure: | | | Upper GI endoscopyIndications: Diarrhea, Weight | | | lossProviders: Emmanuel Daniel MD, Heidi Mixon [place], | | | RN, Kim Hicks, Sock Folder, | | | Jarett Barakat MD (Anesthesia [...] the nurse, the anesthesiologist and the nuclear test technician | | | in the endoscopy [...] | | Imaging was performed using the [employer] | | | Endoscopy (FICE) [...] Scope In: 8:43:57 AMScope Out: 8:49:50 AM [facility]. | | | [facility], [address] [place] [address] | | | [phone] | | |Recommendation: | | | - [...] |Scope Out: 8:49:50 AM | | | [facility]. [facility], [facility] [address] [place], [place] | | | [address] | | + + -+ + +---------+ [...] | PROVATION | | 01/05/2019 8:36 AMMRN: [id number] #: [id number] of : | | | 9Admit Type: AmbulatoryAge: 58Room: [facility] 01Gender: MaleNote | | | Status: FinalizedAttending MD: Emmanuel Daniel , MDProcedure: | | | ColonoscopyIndications: Clinically significant diarrhea of | | | unexplained origin, Weight lossProviders: | | | Emmanuel Daniel MD, Heidi An RN, Kim | | | Fiorella Hicks, Sock Folder, Jarett Alejo | | | MD Roshni [...] | | the anesthesiologist and the nuclear test technician in the endoscopy suite. | | [...] AMScope Out: | | | 9:06:28 AM [facility], [address] [place] [address], | | | [place] [address] | | | - Discharge patient to [...] |Scope Out: 9:06:28 AM | | | [facility], [address] [place] [address], [place], [place] | | | [address] | | + + -+ + +---------+ [...] chronic or | | | microscopic colitis. BANNER:[facility]:C3NR GROSS DESCRIPTION: A. The | | | specimen, labeled "[place], duodenal biopsy" is received in formalin | | | and consists of seven 0.1-0.5 cm lin fragments. Entirely submitted in | | | (A1). B. The specimen, labeled "[place], right colon" is received | | | in formalin and consists of six 0.2-0.3 cm lin fragments. Entirely | | | submitted in (B1). C. The specimen, labeled "[place], left colon" | | | is received in formalin and consists of six 0.2-0.3 cm lin-pink | | | fragments. Entirely submitted in (C1). am:AMB:portillo PERFORMING | | | LABORATORY: The technical component was performed by [facility] | | | [facility], [address] [place] [address] (Flame Annealing Machine Setter: | | | Kailey Stafford MD; CLIA# [id number]). Professional interpretation was | | | performed by [employer], [facility], [address] | | | [place] [address] (Flame Annealing Machine Setter: Ishaan | | | Anthony Dao; CLIA#: [id number]). Diagnostician: Ishaan Fitzpatrick | | | Sylwia [...]
--- OUTSIDE RECORDS SUMMARY | ~2020-04-15 | XMS | Encounter Summary ---
Demographics + + + | Address | [address] | | | [place] [address] | + + + | Home Phone [...] | Palpitations | [address] | | | | | Procedures | [address] | [address] [place] | | | | | ECHO | [place], | [place], [place] | | | | | Complete | [place] [address] | [address] | | | | | | Phone: | Phone: | | | | | | [phone] | [phone] | | | | | | Fax: | Fax: | | | | | | [phone] | [phone] | +--------+--------+ + + + + Encounter Details +--------+ + + + + | Date | Type | Department | Care Team | Description | +--------+ + + + + | 12/30/ | Hospital | [facility] | TimmyshaistateshaShaistatimmy, | Palpitations | | 2012 - | Encounter | MED CTR XRAY [address] | MD [address] | | | | | [address] [place] | [address], | | | 01/01/ | | [place] [address] | [place] [address] | | | 2012 | | [phone] | | | | | | | [...] + + + +---------+ + + | [place]-3 Fatty | CAPS, one capsule by | [...] | | | | | | [address] [place], | | | | | | [place] [address] | | | | | | [phone] | | | | | | | | +--------+ + + + + | 05/01/ | Procedure | Cardiology | | | | 2019 | visit | | | | +--------+ + + + + | 05/01/ | Office | Cardiology | [place]via | | | 2019 | Visit | | PARISA [place] [address] | | | | | | [address] [place], | | | | | | [place] [address] | | | | | | [phone] | | | | | | | | +--------+ + + + + | 05/21/ | Implant | Cardiology | Daljit Singletary, | Remote Device | 2019 | Monitor | | MD [address] [place] [address] | Interrogation | | | | | [place], | (Primary Dx); | | | | | [place] [address] | Pacemaker; | | | | | [phone] | Sinoatrial node | | | | [...] + + + | [facility] | [place] | | Department [address] [facility] | [facility] | | [ rep ct street[address]] [ rep [facility] | | st zip] Signed | - IMAGING | | | | | Patient Name: MOE GAY | | | Physician: MIGUELINA : 1960 Age: 52 Sex: M Unit | | | #: [id number] Exam Date: 12/30/12 Location: | | | [facility] Report #: [id number] Page: | | | %(RAD)RES..mtdd.print.filter("pg") of %(RAD) | | | RES..mtdd.print.filter("tpg") | | | | | | Accession Number: [id number] | | | E C H O C A R D I O G R A P H Y R E P O R T | | | HEIGHT: 76" WEIGHT: 270# | | | SPOT MAN: JAMEEL REFERRING DR: TIMMY DRAKE DR: | [...] | | | Transcribed Date/Time: 12/30/2012 16:34 Tie Layer: | | | <<Signature on File>> | | | Daljit | | | MD Gemini [facility] FASE01/02/13 0955 <Electronically signed by | | | Daljit Singletary MD, FAC, FACP, FASNanette, FASRUAL> Daljit | | | MD [facility] ADELINE 12/30/12 1608 Tie Layer: Jessica | | | Twegtwpmowotx16/08/13 1634 Daljit Singletary MD [facility] | | | FASNanette | | + + + + + + + + | Performing | Address | City/State/Zipcode | Phone Number | | Organization | | | | + + + + + | [facility] | [address] | [place] | [phone] | | [facility] | | [address] | | | - IMAGING | | | | + + + + + documented in this encounter Visit Diagnoses + + | Diagnosis | + + | Palpitations | + + documented in this encounter
--- OUTSIDE RECORDS SUMMARY | ~2020-04-15 | XMS | Encounter Summary ---
Demographics + + + | Address | [address] [place] [address] [address] | | | [place] [address] | + + + | Home Phone [...] [place] | | | | | [address] | | + + + + + Care Team Providers + +------+ + | Care Auto Transport Driver Name | Role | Phone | [...]
--- OUTSIDE RECORDS SUMMARY | ~2020-04-15 | XMS | Encounter Summary ---
Demographics + + + | Address | [address] | | | [place] [address] | + + + | Home Phone [...] Providers + +------+ + | Care Refractory Mixer Name | Role | Phone | [...] + + | 09/09/ | Office | [facility] | Michael Amanda, | Hyperlipidemia; | | 2011 | Visit | [facility] [place] | DO [address] | Hypertension; | | | | [address] | [place] | Chronic pain | | | | [place] | [address] | syndrome; Neck pain, | | | | [address] | | chronic | | | | [phone] | | | +--------+---------+ + + + [...] damage history No ASHD (either angina; prior NC; prior CABG) No cardiac end organ damage [...] slowly cutting back. Pt [facility] medications prior to [...] | | | | | | [place] [address] | | | | | | [phone] | | | | | | | [...] | | | | | | [place] [address] | | | | | | [phone] | | | | | | | | +--------+ + + + + | 05/21/ | Implant | Cardiology | Daljit Singletary, | Remote Device | 2019 | Monitor | | [address] | Interrogation | | | | | [address], | (Primary Dx); | | | | | [place] [address] | Pacemaker; | | | | | [phone] | Sinoatrial node | | | | [...]
--- OUTSIDE RECORDS SUMMARY | ~2020-04-15 | XMS | Encounter Summary ---
Demographics + + + | Address | [address] | | | [place] [address] | + + + | Home Phone [...] Providers + +------+ + | Care Adjunct Spanish Instructor Name | Role | Phone | [...] [address] | | | | | | [place], [place] | (Fax) | | | | | [address] | | | | | | [phone] | | | +--------+ + + + [...] | | | | | | [place] [address] | | | | | | [phone] | | | | | | | [...] | | | | | | [place] [address] | | | | | | [phone] | | | | | | | | +--------+ + + + + | 05/21/ | Implant | Cardiology | Daljit Singletary, | Remote Device | | 2019 | Monitor | | [address] [place] | Interrogation | | | | | [place], | (Primary Dx); | | | | | [place] [address] | Pacemaker; | | | | | [phone] | Sinoatrial node | | | | | | dysfunction (HCC) | | | | | | with symptomatic | | | | | | bradycardia | +--------+ + + + + documented as of this encounter Visit Diagnoses Not on filedocumented in this encounter"
--- OUTSIDE RECORDS SUMMARY | ~2020-04-15 | XMS | Encounter Summary ---
Demographics + + + | Address | [address] | | | [place] [address] | + + + | Home Phone [...] | 07/30/ | Telephone | [facility] | Michael Amanda, | Results | | 2013 | | [facility] [place] | DO [address] | | | | | [address] | [place] | | | | | [place] | [address] | | | | | [address] | | | | | | [phone] | | | +--------+ + + + [...] W | | | | | | [place], | | | | | | [place] [address] | | | | | | [phone] | | | | | | | | +--------+ + + + + | 05/01/ | Procedure | Cardiology | | | | 2019 | visit | | | | +--------+ + + + + | 05/01/ | Office | Cardiology | Silvia, | | | 2019 | Visit | | [address] | | | | | | [place], | | | | | | [place] [address] | | | | | | [phone] | | | | | | | | +--------+ + + + + | 05/21/ | Implant | Cardiology | Daljit Singletary, | Remote Device | 2019 | Monitor | | MD Chiquis Oro | Interrogation | | | | | [place], | (Primary Dx); | | | | | [place] [address] | Pacemaker; | | | | | [phone] | Sinoatrial node | | | | | | dysfunction (HCC) | | | | | | with symptomatic | | | | | | bradycardia | +--------+ + + + + documented as of this encounter Visit Diagnoses Not on filedocumented in this encounter"
--- OUTSIDE RECORDS SUMMARY | ~2020-04-15 | XMS | Encounter Summary ---
Demographics + + + | Address | [address] | | | [place] [address] | + + + | Home Phone [...] + +------+ + | Care Remote Sensing Technician Name | Role | Phone | + +------+ + | Michael Amanda DO | PCP | | + +------+ + Encounter Details +--------+ + + + + | Date | Type | Department | Care Team | Description | +--------+ + + + + | 09/22/ | Hospital | [facility] | Bahman Gant MD | | | 2012 | Encounter | MED CTR XRAY [address] | [address] [place] | | | | | [place] | [address] [place], | | | | | [place] [address] | [place] [address] | | | | | [phone] | [phone] | | | | | | | [...] | | | | | | [place] [address] | | | | | | [phone] | | | | | | | | +--------+ + + + + | 05/01/ | Procedure | Cardiology | | | | 2019 | visit | | | | +--------+ + + + + | 05/01/ | Office | Cardiology | Silvia, | | | 2019 | Visit | | [address] [address] | | | | | | [place], | | | | | | [place] [address] | | | | | | [phone] | | | | | | | | +--------+ + + + + | 05/21/ | Implant | Cardiology | Daljit Singletary, | Remote Device | 2019 | Monitor | | [address] [facility] | Interrogation | | | | | [place], | (Primary Dx); | | | | | [place] [address] | Pacemaker; | | | | | [phone] | Sinoatrial node | | | | | | dysfunction (HCC) | | | | | | with symptomatic | | | | | | bradycardia | +--------+ + + + + documented as of this encounter Visit Diagnoses Not on filedocumented in this encounter"
[~2020-04-15 20:02] MED LIST changes: +DICLOFENAC SODI75 MG PO
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
[2020-04-15] MEDS ORDERED: PERCOCET 5-3251 EACH PO (23:59)
== END 2020-04-15 21:10 | disposition left against medical advice (07) ==
LOC: ED 20:02
DX: Z53.21 Procedure and treatment not carried out due to patient leaving prior to being seen by health care provider (principal)
CPT/HCPCS: 73600

== ENCOUNTER 2020-04-15 23:22 | Emergency (ER) | payer MEDICARE ==
[~2020-04-15] VITALS: Ht 193 cm; Wt 117.9 kg
--- OUTSIDE RECORDS SUMMARY | ~2020-04-15 | XMS | Encounter Summary ---
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 | Role | Phone | + +------+ + | Kirk French MD | PCP | | + +------+ + Reason for Referral Diagnostic/Screening (Routine) +--------+--------+ + + + + | Status | Reason | Specialty | Diagnoses / | Referred By | Referred To | | | | | Procedures | Contact | Contact | +--------+--------+ + + + + | Closed | | Radiology | Diagnoses | Rudolph | BRETT | | | | | DDD | 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, 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 | [facility] | | | | | (degenerativ | [address] [facility] | | | | | e disc | [facility] | [facility]ICAL | | | | | disease), | [address] | CENTER [address] | | | | | lumbar | B | [place] | | | | | Chronic | [place], [place] | [place], | | | | | left-sided | [address] | [place] [address] | | | | | low back | Phone: | Phone: | | | | | pain with | [phone] | [phone] | | | | | left-sided | Fax: | Fax: | | | | | sciatica | [phone] | [phone] | | | | | History of | | | | | | | spinal | | | | | | | fusion | | | | | | | Falling | | | | | | | Procedures | | | | | | | CT | | | | | | | Myelography | | | | | | | Cervical | | | | | | | Spine | | | +--------+--------+ + + + + Diagnostic/Screening (Routine) +--------+--------+ + + + + | Status | Reason | Specialty | Diagnoses / | Referred By | Referred To | | | | | Procedures | Contact | Contact | +--------+--------+ + + + + | Closed | | Radiology | Diagnoses | Rudolph, | [address] | | | | | DDD | 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, 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 | [address] [place] | | | | | (degenerativ | [address] | [place], | | | | | e disc | [facility] | [place] [address] | | | | | disease), | [address] | Phone: | | | | | lumbar | B | [phone] | | | | | Chronic | [place], [place] | Fax: | | | | | left-sided | [address] | [phone] | | | | | low back | Phone: | | | | | | pain with | [phone] | | | | | | left-sided | Fax: | | | | | | sciatica | [phone] | | | | | | History of | | | | | | | spinal | | | | | | | fusion | | | | | | | Falling | | | | | | | Procedures | | | | | | | CT | | | | | | | Myelography | | | | | | | Lumbar Spine | | | +--------+--------+ + + + + Reason for Visit Auth/Cert +--------+--------+ + + + + | Status | Reason | Specialty | Diagnoses / | Referred By | Referred To | | | | | Procedures | Contact | Contact | +--------+--------+ + + + + | | | | | | | +--------+--------+ + + + + Encounter Details +--------+ + + + + | Date | Type | Department | Care Team | Description | +--------+ + + + + | 07/01/ | Hospital | [facility] | Scotty Galdamez, | DDD (degenerative | | 2018 | Encounter | [facility] [address] | 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 [address] [facility] | disc disease), | | | | [place], | [address] | lumbar; Chronic | | | | [place] [address] | [place] [address] | left-sided low back | | | | [phone] | [phone] | pain with left-sided | | | | | | sciatica; History | | | | | | of spinal fusion; | | | | | | Falling | +--------+ + + + + Social [...] +---------+ + | Yes | | | Occassionally | + + +---------+ + + + [...] + + documented as of this encounter Medications at Time of Discharge + + + +---------+ + + | Medication | Sig | Dispensed | Refills | Start | End Date | | | | | | Date | | + + + +---------+ + + | acyclovir | Apply topically. | | 0 | 07/13/20 | | | (ZOVIRAX) 5% | | | | 17 | | | ointment | | | | | | + + + +---------+ + + | Ascorbic Acid | Take 1,000 mg by | | 0 | 03/09/20 | | | (VITAMIN C) 1000 MG | mouth Daily. | | | 12 | | | tablet | | | | | | + + + +---------+ + + | aspirin 81 MG | Take 81 mg by mouth | | 0 | 03/09/20 | | | tablet | Daily. | | | 12 | | + + + +---------+ + + | diphenhydrAMINE | Take 25 mg by mouth | | 0 | 03/09/20 | | | (BENADRYL) 25 MG | as needed. | | | 12 | | | capsule | | | | | | + + + +---------+ + + | Glucose Blood | Test up to 1 times a | | 0 | 01/29/20 | | | (BLOOD GLUCOSE TEST | day as needed ( One | | | 18 | | | STRIPS) STRP | touch ) | | | | | + + + +---------+ + + | | Take 1,000 mg by | | 0 | 01/29/20 | | | Methylsulfonylmethan | mouth. | | | 18 | | | e 1000 MG TABS | | | | | | + + + +---------+ + + | Misc Natural | Take by mouth. | | 0 | | | | Products (OSTEO | Takes 2 tablets in | | | | | | BI-FLEX/5-LOXIN | the morning and 2 | | | | | | ADVANCED PO) | tablets at night | | | | | + + + +---------+ + + | Multiple | Take 1 tablet by | | 0 | | | | Vitamins-Minerals | mouth Daily. | | | | | | (CENTRUM SILVER PO) | | | | | | + + + +---------+ + + | [place]-3 Fatty | CAPS, one capsule by | | 0 | 03/09/20 | | | Acids (SALMON | mouth daily twice | | | 12 | | | OIL-1000 PO) | daily | | | | | + + + +---------+ + + | ONE TOUCH DELICA | Check glucose as | 100 | 3 | 08/17/20 | | | LANCETS | needed for | each | | 13 | | | MISCIndications: | hypoglycemia | | | | | | Hypoglycemia | | | | | | + + + +---------+ + + | rOPINIrole | Take 1 tablet by | | 0 | 05/24/20 | | | (REQUIP) 1 mg tablet | mouth nightly. | | | 15 | | + + + +---------+ + + | UNABLE TO FIND | Take 1 tablet by | | 0 | | | | | mouth Daily. | | | | | | | MARINE-D3 | | | | | + + + +---------+ + + | UNCODED MEDICATION | Diagnosis: | 1 | 0 | 02/16/20 | | | | Obstructive Sleep | Device | | 13 | | | | ApneaICD-9: | | | | | | | 327.23Length of | | | | | | | Need: 99 Months | | | | | + + + +---------+ + + | acyclovir | Apply 1 Application | | 0 | 07/13/20 | | | (ZOVIRAX) 5% | topically every 3 | | | 17 | 8 | | ointment | hours. | | | | | + + + +---------+ + + | cholecalciferoL | Take by mouth. | | 0 | | | | (VITAMIN D-3) 1,000 | | | | | 9 | | units CAPS capsule | | | | | | + + + +---------+ + + | clonazePAM | | | 0 | 10/19/20 | | | (KLONOPIN) 0.5 mg | | | | 17 | 9 | | tablet | | | | | | + + + +---------+ + + | cloNIDine | Take 1 tablet by | 270 | 3 | 12/25/19 | | | (CATAPRES) 0.2 MG | mouth 3 times daily. | tablet | | 17 | 9 | | tablet | | | | | | + + + +---------+ + + | flecainide | Take 1 tablet by | 60 | 5 | 06/27/20 | | | (TAMBOCOR) 100 mg | mouth 2 times daily. | tablet | | 18 | 8 | | tablet | | | | | | + + + +---------+ + + | | Take One time | | 0 | | | | Methylsulfonylmethan | daily. | | | | 9 | | e (MSM) 1000 MG TABS | | | | | | + + + +---------+ + + | metoprolol | Take 1 tablet by | 90 | 1 | 06/27/20 | | | succinate | mouth Daily. | tablet | | 18 | 9 | | (TOPROL-XL) 100 mg | | | | | | | ER tablet | | | | | | + + + +---------+ + + | Nattokinase 100 MG | Take by mouth 2 | | 0 | | | | CAPS | (two) times daily. | | | | 9 | + + + +---------+ + + | NITROSTAT 0.4 MG | place 1 tablet under | 100 | 3 | 10/13/20 | | | SL tablet | the tongue if | tablet | | 16 | 9 | | | needed for chest | | | | | | | pain may repeat | | | | | | | every 5 minutes UP | | | | | | | TO 3 DOSES; IF NO | | | | | | | RELIEF AFTER 3RD | | | | | | | DOSE, CALL 911 | | | | | + + + +---------+ + + | pravastatin | take 1 tablet by | 90 | 3 | 11/09/20 | | | (PRAVACHOL) 40 MG | mouth NIGHTLY | tablet | | 16 | 9 | | tablet | | | | | | + + + +---------+ + + | valACYclovir | Take 1,000 mg by | | 1 | 11/29/19 | | | (VALTREX) 1 g tablet | mouth 2 times daily. | | | 18 | 9 | + + + +---------+ + + documented as of this encounter Plan of Treatment +--------+ + + + + | Date | Type | Specialty | Care Team | Description | +--------+ + + + + | 05/01/ | Appointment | Radiology | [place], | | | 2019 | | | [address] | | | | | | [place], | | | | | | [place] [address] | | | | | | [phone] | | | | | | | | +--------+ + + + + | 05/01/ | Procedure | Cardiology | | | | 2019 | visit | | | | +--------+ + + + + | 05/01/ | Office | Cardiology | [place], | | | 2019 | Visit | | [address] | | | | | | [place], | | | | | | [place] [address] | | | | | | [phone] | | | | | | | | +--------+ + + + + | 05/21/ | Implant | Cardiology | Daljit Singletary, | Remote Device | | 2020 | Monitor | | [address] [place] | Interrogation | | | | | [place], | (Primary Dx); | | | | | [place] [address] | Pacemaker; | | | | | [phone] | Sinoatrial node | | | | | | dysfunction (HCC) | | | | | | with symptomatic | | | | | | bradycardia | +--------+ + + + + documented as of this encounter Procedures + +--------+ + + + | Procedure Name | Priori | Date/Time | Associated Diagnosis | Comments | | | ty | | | | + +--------+ + + + | CT MYELOGRAPHY | Routin | 07/01/2018 | DDD (degenerative | Results for this | | LUMBAR SPINE | e | 10:24 AM | disc disease), | procedure are in the | | | | PDT | lumbar Chronic | results section. | | | | | left-sided low back | | | | | | pain with left-sided | | | | | | sciatica History | | | | | | of spinal fusion | | | | | | Falling | | + +--------+ + + + | CT MYELOGRAPHY | Routin | 07/01/2018 | DDD (degenerative | Results for this | | CERVICAL SPINE | e | 10:24 AM | disc disease), | procedure are in the | | | | PDT | lumbar Chronic | results section. | | | | | left-sided low back | | | | | | pain with left-sided | | | | | | sciatica History | | | | | | of spinal fusion | | | | | | Falling | | + +--------+ + + + documented in this encounter Results CT Myelography Cervical Spine (07/01/2018 10:24 AM PDT) + + | Specimen | + + | | + + + + + | Narrative | Performed At | + + + | EXAM: CT MYELOGRAPHY CERVICAL SPINE, CT MYELOGRAPHY LUMBAR SPINE | [facility] | | dated 07/01/2018 8:43 AM HISTORY: low back pain, hx fusion, | | | frequent falls COMPARISON: CT myelogram dated June 04, 2016. | | | TECHNIQUE: Imaging is performed through the cervical and lumbar spine | | | following the intrathecal injection of Omnipaque 240. Please see | | | the procedural report for details. DOSE: DLP = 716.82 mGy per | | | centimeter. FINDINGS: CT CERVICAL SPINE: Contrast | | | distends the thecal sac. There are anterior cervical discectomy and | | | fusion changes at C6-C7. Partial corpectomy at C7. Hardware is | | | intact. Stable anterior bowing of the C6-C7. There is solid | | | osseous fusion across C6-C7. There is also solid osseous fusion at | | | C5-C6. Posterior decompressive changes and hardware at C6, C7, and | | | T1 the hardware appears intact. There is disc narrowing at C3-C4 | | | and C4-C5. Slight retrolisthesis at C3 and C4. Degenerative | | | changes at the precervical junction. The following levels are | | | evaluated in the axial plane: C2-C3: No significant spinal canal | | | stenosis or neural foraminal narrowing. C3-C4: Slight | | | retrolisthesis. No significant disc bulge or protrusion. Mild | | | narrowing of the central spinal canal. Mild uncinate hypertrophy. | | | Mild bilateral neural foraminal narrowing. This is slightly | | | greater on the right. This is not significantly changed. C4-C5: | | | Slight retrolisthesis. Slight posterior disc and osteophyte. Mild | | | narrowing of the central spinal canal. Mild facet arthrosis and | | | uncinate hypertrophy bilaterally. Mild narrowing of the left neural | | | foramen. This level has minimally progressed C5-C6: | | | Postsurgical changes. Stable patent central spinal canal and neural | | | foramen. C6-C7: Postsurgical changes. Partial corpectomy of C7. | | | The central spinal canal and neural foramen remain patent and | | | unchanged. C7-T1: Postoperative changes. Patent central spinal | | | canal neural foramen. The paracervical soft tissues are | | | unremarkable. The visible lung apices are clear. CT LUMBAR | | | SPINE: There is lumbosacral transitional anatomy. The numbering | | | utilized as the same as the study. There is a right-sided | | | lumbosacral pseudoarthrosis. There is no scoliosis or significant | | | spondylolisthesis. There is vacuum disc and narrowing at L3-L4. | | | Mild narrowing at L5-S1. Posterior and interbody fusion changes at | | | L4-L5. The hardware is intact. There is no solid osseous fusion | | | across the operative disc level. The conus terminates at the | | | thoracic lumbar junction. The following levels are evaluated in | | | the axial plane: T12-L1: No significant central stenosis or neural | | | foraminal narrowing. No significant interval change. L1-2: No | | | significant central stenosis or neural foraminal narrowing. No | | | significant interval change. L2-3: There is small posterior disc | | | protrusion and foraminal components of disc. Mild narrowing of the | | | central spinal canal and neural foramen. This level is not | | | significantly changed. L3-4: Mild congenital narrowing of the | | | central spinal canal. Small broad posterior disc protrusion. Mild | | | facet arthrosis and ligamentum flavum redundancy. Mild narrowing | | | of the central spinal canal with encroachment on the subarticular | | | recesses bilaterally. There is mild left and moderate to severe | | | right neural foraminal narrowing. No significant interval change. | | | L4-5: Postoperative changes. Patent central spinal canal. Patent | | | right neural foramen. Bony encroachment on the left contributes to | | | moderate to severe foraminal narrowing . This is mildly | | | progressed. L5-S1: No significant central stenosis or neural | | | foraminal narrowing. The visible paravertebral soft tissues are | | | unremarkable. There are intrarenal nephroliths in the right kidney. | | | IMPRESSION - Intact anterior and posterior fusion changes | | | involving C6, C7, and T1. Remote solid osseous fusion at the C5-C6 | | | disc level. Mild cervical spondylosis at C3-C4 and C4-C5. The | | | changes at C4-C5 have minimally progressed. Posterior and | | | interbody fusion changes at L4-L5. Hardware is intact. However, | | | there is not solid osseous fusion across the disc level. There is | | | lumbar spondylosis at L3-L4 that has not significantly changed but | | | includes moderate to severe right neural foraminal narrowing. | | | There is mildly progressive left neural foraminal narrowing at L4-L5. | | | Dictated and Signed by: Emmanuel Gibbons MD Electronically | | | signed: 07/01/2018 2:25 PM | | + + + + + | Procedure Note | + + | Kalpesh Brown Results In - 07/01/2018 2:28 PM PDT EXAM: CT MYELOGRAPHY CERVICAL SPINE, CT | | MYELOGRAPHY LUMBAR SPINE dated 07/01/20188:43 AMHISTORY: low back pain, hx fusion, | | frequent fallsCOMPARISON: CT myelogram dated June 04, 2016.TECHNIQUE: Imaging is | | performed through the cervical and lumbar spine followingthe intrathecal injection of | | Omnipaque 240. Please see the procedural reportfor details.DOSE: DLP = 716.82 mGy per | | centimeter.FINDINGS: CT CERVICAL SPINE:Contrast distends the thecal sac. There are | | anterior cervical discectomy andfusion changes at C6-C7. Partial corpectomy at C7. | | Hardware is intact. Stableanterior bowing of the C6-C7. There is solid osseous fusion | | across C6-C7. There is also solid osseous fusion at C5-C6. Posterior decompressive | | changesand hardware at C6, C7, and T1 the hardware appears intact. There is | | discnarrowing at C3-C4 and C4-C5. Slight retrolisthesis at C3 and C4. | | Degenerativechanges at the precervical junction.The following levels are evaluated in | | the axial plane:C2-C3: No significant spinal canal stenosis or neural foraminal | | narrowing. C3-C4: Slight retrolisthesis. No significant disc bulge or protrusion. | | Mildnarrowing of the central spinal canal. Mild uncinate hypertrophy. Mildbilateral | | neural foraminal narrowing. This is slightly greater on the right. This is not | | significantly changed.C4-C5: Slight retrolisthesis. Slight posterior disc and | | osteophyte. Mildnarrowing of the central spinal canal. Mild facet arthrosis and | | uncinatehypertrophy bilaterally. Mild narrowing of the left neural foramen. This | | levelhas minimally progressedC5-C6: Postsurgical changes. Stable patent central spinal | | canal and neuralforamen.C6-C7: Postsurgical changes. Partial corpectomy of C7. The | | central spinalcanal and neural foramen remain patent and unchanged.C7-T1: Postoperative | | changes. Patent central spinal canal neural foramen.The paracervical soft tissues are | | unremarkable. The visible lung apices areclear.CT LUMBAR SPINE:There is lumbosacral | | transitional anatomy. The numbering utilized as the sameas the study. There is a | | right-sided lumbosacral pseudoarthrosis. There is noscoliosis or significant | | spondylolisthesis. There is vacuum disc and narrowingat L3-L4. Mild narrowing at | | L5-S1. Posterior and interbody fusion changes atL4-L5. The hardware is intact. There | | is no solid osseous fusion across theoperative disc level. The conus terminates at the | | thoracic lumbar junction.The following levels are evaluated in the axial plane:T12-L1: | | No significant central stenosis or neural foraminal narrowing. Nosignificant interval | | change.L1-2: No significant central stenosis or neural foraminal narrowing. | | Nosignificant interval change.L2-3: There is small posterior disc protrusion and | | foraminal components of disc. Mild narrowing of the central spinal canal and neural | | foramen. This level isnot significantly changed.L3-4: Mild congenital narrowing of the | | central spinal canal. Small broadposterior disc protrusion. Mild facet arthrosis and | | ligamentum flavumredundancy. Mild narrowing of the central spinal canal with | | encroachment on thesubarticular recesses bilaterally. There is mild left and moderate | | to severeright neural foraminal narrowing. No significant interval change.L4-5: | | Postoperative changes. Patent central spinal canal. Patent right neuralforamen. Bony | | encroachment on the left contributes to moderate to severeforaminal narrowing . This is | | mildly progressed.L5-S1: No significant central stenosis or neural foraminal narrowing. | | The visible paravertebral soft tissues are unremarkable. There are | | intrarenalnephroliths in the right kidney.IMPRESSION -Intact anterior and posterior | | fusion changes involving C6, C7, and T1.Remote solid osseous fusion at the C5-C6 disc | | level.Mild cervical spondylosis at C3-C4 and C4-C5. The changes at C4-C5 haveminimally | | progressed.Posterior and interbody fusion changes at L4-L5. Hardware is intact. | | However,there is not solid osseous fusion across the disc level.There is lumbar | | spondylosis at L3-L4 that has not significantly changed butincludes moderate to severe | | right neural foraminal narrowing.There is mildly progressive left neural foraminal | | narrowing at L4-L5.Dictated and Signed by: Emmanuel Gibbons MD Electronically signed: | | 07/01/2018 2:25 PM | |CT LUMBAR SPINE: | | | |There is lumbosacral transitional anatomy. The numbering utilized as the same | |as the study. There is a right-sided lumbosacral pseudoarthrosis. There is no | |scoliosis or significant spondylolisthesis. There is vacuum disc and narrowing | |at L3-L4. Mild narrowing at L5-S1. Posterior and interbody fusion changes at | |L4-L5. The hardware is intact. There is no solid osseous fusion across the | |operative disc level. The conus terminates at the thoracic lumbar junction. | | | |The following levels are evaluated in the axial plane: | | | |T12-L1: No significant central stenosis or neural foraminal narrowing. No | |significant interval change. | | | |L1-2: No significant central stenosis or neural foraminal narrowing. No | |significant interval change. | | | |L2-3: There is small posterior disc protrusion and foraminal components of disc. | | Mild narrowing of the central spinal canal and neural foramen. This level is | |not significantly changed. | | | |L3-4: Mild congenital narrowing of the central spinal canal. Small broad | |posterior disc protrusion. Mild facet arthrosis and ligamentum flavum | |redundancy. Mild narrowing of the central spinal canal with encroachment on the | |subarticular recesses bilaterally. There is mild left and moderate to severe | |right neural foraminal narrowing. No significant interval change. | | | |L4-5: Postoperative changes. Patent central spinal canal. Patent right neural | |foramen. Bony encroachment on the left contributes to moderate to severe | |foraminal narrowing . This is mildly progressed. | | | |L5-S1: No significant central stenosis or neural foraminal narrowing. | | | |The visible paravertebral soft tissues are unremarkable. There are intrarenal | |nephroliths in the right kidney. | | | | | |IMPRESSION - | | | |Intact anterior and posterior fusion changes involving C6, C7, and T1. | | | |Remote solid osseous fusion at the C5-C6 disc level. | | | |Mild cervical spondylosis at C3-C4 and C4-C5. The changes at C4-C5 have | |minimally progressed. | | | |Posterior and interbody fusion changes at L4-L5. Hardware is intact. However, | |there is not solid osseous fusion across the disc level. | | | |There is lumbar spondylosis at L3-L4 that has not significantly changed but | |includes moderate to severe right neural foraminal narrowing. | | | |There is mildly progressive left neural foraminal narrowing at L4-L5. | | | |Dictated and Signed by: Emmanuel Gibbons MD | | Electronically signed: 07/01/2018 2:25 PM | + + + +---------+ + + | Performing | Address | City/State[facility] | Phone Number | | Organization | | | | + +---------+ + + | [facility] | | | | + +---------+ + + CT Myelography Lumbar Spine (07/01/2018 10:24 AM PDT) + + | Specimen | + + | | + + + + + | Narrative | Performed At | + + + | EXAM: CT MYELOGRAPHY CERVICAL SPINE, CT MYELOGRAPHY LUMBAR SPINE | [facility] | | dated 07/01/2018 8:43 AM HISTORY: low back pain, hx fusion, | | | frequent falls COMPARISON: CT myelogram dated June 04, 2016. | | | TECHNIQUE: Imaging is performed through the cervical and lumbar spine | | | following the intrathecal injection of Omnipaque 240. Please see | | | the procedural report for details. DOSE: DLP = 716.82 mGy per | | | centimeter. FINDINGS: CT CERVICAL SPINE: Contrast | | | distends the thecal sac. There are anterior cervical discectomy and | | | fusion changes at C6-C7. Partial corpectomy at C7. Hardware is | | | intact. Stable anterior bowing of the C6-C7. There is solid | | | osseous fusion across C6-C7. There is also solid osseous fusion at | | | C5-C6. Posterior decompressive changes and hardware at C6, C7, and | | | T1 the hardware appears intact. There is disc narrowing at C3-C4 | | | and C4-C5. Slight retrolisthesis at C3 and C4. Degenerative | | | changes at the precervical junction. The following levels are | | | evaluated in the axial plane: C2-C3: No significant spinal canal | | | stenosis or neural foraminal narrowing. C3-C4: Slight | | | retrolisthesis. No significant disc bulge or protrusion. Mild | | | narrowing of the central spinal canal. Mild uncinate hypertrophy. | | | Mild bilateral neural foraminal narrowing. This is slightly | | | greater on the right. This is not significantly changed. C4-C5: | | | Slight retrolisthesis. Slight posterior disc and osteophyte. Mild | | | narrowing of the central spinal canal. Mild facet arthrosis and | | | uncinate hypertrophy bilaterally. Mild narrowing of the left neural | | | foramen. This level has minimally progressed C5-C6: | | | Postsurgical changes. Stable patent central spinal canal and neural | | | foramen. C6-C7: Postsurgical changes. Partial corpectomy of C7. | | | The central spinal canal and neural foramen remain patent and | | | unchanged. C7-T1: Postoperative changes. Patent central spinal | | | canal neural foramen. The paracervical soft tissues are | | | unremarkable. The visible lung apices are clear. CT LUMBAR | | | SPINE: There is lumbosacral transitional anatomy. The numbering | | | utilized as the same as the study. There is a right-sided | | | lumbosacral pseudoarthrosis. There is no scoliosis or significant | | | spondylolisthesis. There is vacuum disc and narrowing at L3-L4. | | | Mild narrowing at L5-S1. Posterior and interbody fusion changes at | | | L4-L5. The hardware is intact. There is no solid osseous fusion | | | across the operative disc level. The conus terminates at the | | | thoracic lumbar junction. The following levels are evaluated in | | | the axial plane: T12-L1: No significant central stenosis or neural | | | foraminal narrowing. No significant interval change. L1-2: No | | | significant central stenosis or neural foraminal narrowing. No | | | significant interval change. L2-3: There is small posterior disc | | | protrusion and foraminal components of disc. Mild narrowing of the | | | central spinal canal and neural foramen. This level is not | | | significantly changed. L3-4: Mild congenital narrowing of the | | | central spinal canal. Small broad posterior disc protrusion. Mild | | | facet arthrosis and ligamentum flavum redundancy. Mild narrowing | | | of the central spinal canal with encroachment on the subarticular | | | recesses bilaterally. There is mild left and moderate to severe | | | right neural foraminal narrowing. No significant interval change. | | | L4-5: Postoperative changes. Patent central spinal canal. Patent | | | right neural foramen. Bony encroachment on the left contributes to | | | moderate to severe foraminal narrowing . This is mildly | | | progressed. L5-S1: No significant central stenosis or neural | | | foraminal narrowing. The visible paravertebral soft tissues are | | | unremarkable. There are intrarenal nephroliths in the right kidney. | | | IMPRESSION - Intact anterior and posterior fusion changes | | | involving C6, C7, and T1. Remote solid osseous fusion at the C5-C6 | | | disc level. Mild cervical spondylosis at C3-C4 and C4-C5. The | | | changes at C4-C5 have minimally progressed. Posterior and | | | interbody fusion changes at L4-L5. Hardware is intact. However, | | | there is not solid osseous fusion across the disc level. There is | | | lumbar spondylosis at L3-L4 that has not significantly changed but | | | includes moderate to severe right neural foraminal narrowing. | | | There is mildly progressive left neural foraminal narrowing at L4-L5. | | | Dictated and Signed by: Emmanuel Gibbons MD Electronically | | | signed: 07/01/2018 2:25 PM | | + + + + + | Procedure Note | + + | Kevin, Rad Results In - 07/01/2018 2:28 PM PDT EXAM: CT MYELOGRAPHY CERVICAL SPINE, CT | | MYELOGRAPHY LUMBAR SPINE dated 07/01/20188:43 AMHISTORY: low back pain, hx fusion, | | frequent fallsCOMPARISON: CT myelogram dated June 04, 2016.TECHNIQUE: Imaging is | | performed through the cervical and lumbar spine followingthe intrathecal injection of | | Omnipaque 240. Please see the procedural reportfor details.DOSE: DLP = 716.82 mGy per | | centimeter.FINDINGS: CT CERVICAL SPINE:Contrast distends the thecal sac. There are | | anterior cervical discectomy andfusion changes at C6-C7. Partial corpectomy at C7. | | Hardware is intact. Stableanterior bowing of the C6-C7. There is solid osseous fusion | | across C6-C7. There is also solid osseous fusion at C5-C6. Posterior decompressive | | changesand hardware at C6, C7, and T1 the hardware appears intact. There is | | discnarrowing at C3-C4 and C4-C5. Slight retrolisthesis at C3 and C4. | | Degenerativechanges at the precervical junction.The following levels are evaluated in | | the axial plane:C2-C3: No significant spinal canal stenosis or neural foraminal | | narrowing. C3-C4: Slight retrolisthesis. No significant disc bulge or protrusion. | | Mildnarrowing of the central spinal canal. Mild uncinate hypertrophy. Mildbilateral | | neural foraminal narrowing. This is slightly greater on the right. This is not | | significantly changed.C4-C5: Slight retrolisthesis. Slight posterior disc and | | osteophyte. Mildnarrowing of the central spinal canal. Mild facet arthrosis and | | uncinatehypertrophy bilaterally. Mild narrowing of the left neural foramen. This | | levelhas minimally progressedC5-C6: Postsurgical changes. Stable patent central spinal | | canal and neuralforamen.C6-C7: Postsurgical changes. Partial corpectomy of C7. The | | central spinalcanal and neural foramen remain patent and unchanged.C7-T1: Postoperative | | changes. Patent central spinal canal neural foramen.The paracervical soft tissues are | | unremarkable. The visible lung apices areclear.CT LUMBAR SPINE:There is lumbosacral | | transitional anatomy. The numbering utilized as the sameas the study. There is a | | right-sided lumbosacral pseudoarthrosis. There is noscoliosis or significant | | spondylolisthesis. There is vacuum disc and narrowingat L3-L4. Mild narrowing at | | L5-S1. Posterior and interbody fusion changes atL4-L5. The hardware is intact. There | | is no solid osseous fusion across theoperative disc level. The conus terminates at the | | thoracic lumbar junction.The following levels are evaluated in the axial plane:T12-L1: | | No significant central stenosis or neural foraminal narrowing. Nosignificant interval | | change.L1-2: No significant central stenosis or neural foraminal narrowing. | | Nosignificant interval change.L2-3: There is small posterior disc protrusion and | | foraminal components of disc. Mild narrowing of the central spinal canal and neural | | foramen. This level isnot significantly changed.L3-4: Mild congenital narrowing of the | | central spinal canal. Small broadposterior disc protrusion. Mild facet arthrosis and | | ligamentum flavumredundancy. Mild narrowing of the central spinal canal with | | encroachment on thesubarticular recesses bilaterally. There is mild left and moderate | | to severeright neural foraminal narrowing. No significant interval change.L4-5: | | Postoperative changes. Patent central spinal canal. Patent right neuralforamen. Bony | | encroachment on the left contributes to moderate to severeforaminal narrowing . This is | | mildly progressed.L5-S1: No significant central stenosis or neural foraminal narrowing. | | The visible paravertebral soft tissues are unremarkable. There are | | intrarenalnephroliths in the right kidney.IMPRESSION -Intact anterior and posterior | | fusion changes involving C6, C7, and T1.Remote solid osseous fusion at the C5-C6 disc | | level.Mild cervical spondylosis at C3-C4 and C4-C5. The changes at C4-C5 haveminimally | | progressed.Posterior and interbody fusion changes at L4-L5. Hardware is intact. | | However,there is not solid osseous fusion across the disc level.There is lumbar | | spondylosis at L3-L4 that has not significantly changed butincludes moderate to severe | | right neural foraminal narrowing.There is mildly progressive left neural foraminal | | narrowing at L4-L5.Dictated and Signed by: Emmanuel Gibbons MD Electronically signed: | | 07/01/2018 2:25 PM | |CT LUMBAR SPINE: | | | |There is lumbosacral transitional anatomy. The numbering utilized as the same | |as the study. There is a right-sided lumbosacral pseudoarthrosis. There is no | |scoliosis or significant spondylolisthesis. There is vacuum disc and narrowing | |at L3-L4. Mild narrowing at L5-S1. Posterior and interbody fusion changes at | |L4-L5. The hardware is intact. There is no solid osseous fusion across the | |operative disc level. The conus terminates at the thoracic lumbar junction. | | | |The following levels are evaluated in the axial plane: | | | |T12-L1: No significant central stenosis or neural foraminal narrowing. No | |significant interval change. | | | |L1-2: No significant central stenosis or neural foraminal narrowing. No | |significant interval change. | | | |L2-3: There is small posterior disc protrusion and foraminal components of disc. | | Mild narrowing of the central spinal canal and neural foramen. This level is | |not significantly changed. | | | |L3-4: Mild congenital narrowing of the central spinal canal. Small broad | |posterior disc protrusion. Mild facet arthrosis and ligamentum flavum | |redundancy. Mild narrowing of the central spinal canal with encroachment on the | |subarticular recesses bilaterally. There is mild left and moderate to severe | |right neural foraminal narrowing. No significant interval change. | | | |L4-5: Postoperative changes. Patent central spinal canal. Patent right neural | |foramen. Bony encroachment on the left contributes to moderate to severe | |foraminal narrowing . This is mildly progressed. | | | |L5-S1: No significant central stenosis or neural foraminal narrowing. | | | |The visible paravertebral soft tissues are unremarkable. There are intrarenal | |nephroliths in the right kidney. | | | | | |IMPRESSION - | | | |Intact anterior and posterior fusion changes involving C6, C7, and T1. | | | |Remote solid osseous fusion at the C5-C6 disc level. | | | |Mild cervical spondylosis at C3-C4 and C4-C5. The changes at C4-C5 have | |minimally progressed. | | | |Posterior and interbody fusion changes at L4-L5. Hardware is intact. However, | |there is not solid osseous fusion across the disc level. | | | |There is lumbar spondylosis at L3-L4 that has not significantly changed but | |includes moderate to severe right neural foraminal narrowing. | | | |There is mildly progressive left neural foraminal narrowing at L4-L5. | | | |Dictated and Signed by: Emmanuel Gibbons MD | | Electronically signed: 07/01/2018 2:25 PM | + + + +---------+ + + | Performing | Address | City/State/Zipcode | Phone Number | | Organization | | | | + +---------+ + + | [facility] | | | | + +---------+ + + documented in this encounter Visit Diagnoses + + | Diagnosis | + + | DDD (degenerative disc disease), lumbar Degeneration of lumbar or lumbosacral | | intervertebral disc | + + | Chronic left-sided low back pain with left-sided sciatica | + + | History of spinal fusion Arthrodesis status | + + | Falling Unspecified fall | + + documented in this encounter"
--- OUTSIDE RECORDS SUMMARY | ~2020-04-15 | XMS | Encounter Summary ---
Demographics + + + | Address | [address] | | | [place] [address] | + + + | Home Phone | | + + + | Preferred Language | Unknown | + + + | Marital Status | | + + + | Lutheran Affiliation | 1013 | + + + | Race | Unknown | + + + | Ethnic Group | Unknown | + + + Author + + + | Author | [facility] | | | and [place] | + + + | Organization | [facility] | | | [...] Team Providers + +------+ + | Care Agriculture Science Teacher Name | Role | Phone | [...] Description | +--------+--------+ + + + | 01/28/ | Refill | [facility] | Kirk French | Medication Refill | | 2019 | | [facility] | MD Bre[address] | | | | | [address] | | | | | [address] | [place] [address] | | | | | [place], [place] | [phone] | | | | | [address] | | | | | | [phone] | | | +--------+--------+ + + + Social History + +--------+ +--------+ + | Tobacco Use | Types | Packs/Day | Years | Date | | | | | Used | | + +--------+ +--------+ + | Former Smoker | Cigars | | 40 | Quit: 11/22/2012 | + +--------+ +--------+ [...] - | | | | | Hard alcohol | + + +---------+ + + + [...] [place], | | | | | | [place] [address] | | | | | | [phone] | | | | | | | | +--------+ + + + + | 05/01/ | Procedure | Cardiology | | | | 2019 | visit | | | | +--------+ + + + + | 05/01/ | Office | Cardiology | Silvia, | | | 2019 | Visit | | PARISA Vernon [address] | | | | | | [place], | | | | | | [place] [address] | | | | | | [phone] | | | | | | | | +--------+ + + + + | 05/21/ | Implant | Cardiology | Daljit Singletary, | Remote Device | | 2019 | Monitor | | [address] [facility] | Interrogation | | | | | [place], | (Primary Dx); | | | | | [place] [address] | Pacemaker; | | | | | [phone] | Sinoatrial node | | | | | | dysfunction (HCC) | | | | | | with symptomatic | | | | | | bradycardia | +--------+ + + + + documented as of this encounter Visit Diagnoses Not on filedocumented in this encounter"
--- OUTSIDE RECORDS SUMMARY | ~2020-04-15 | XMS | Encounter Summary ---
Demographics + + + | Address | [address] | | | [place] [address] | + + + | Home Phone | | + + + | Preferred Language | Unknown | + + + | Marital Status | | + + + | Baptist Affiliation | 1013 | + + + | Race | Unknown | + + + | Ethnic Group | Unknown | + + + Author + + + | Author | [facility] | | | and [place] | + + + | Organization | [facility] | | [...] Team Providers + +------+ + | Care Engineer Name | Role | Phone | + +------+ + | Michael Amanda DO | PCP | | + +------+ + Reason for Visit + + + | Reason | Comments | + + + | Follow-up | One month with [facility] 12/25/13 | + + + | Chest Pain | | + + + Encounter Details +--------+---------+ + + + | Date | Type | Department | Care Team | Description | +--------+---------+ + + + | 01/29/ | Office | [facility] | Silvia, | Other chest pain | | 2013 | Visit | CARDIOLOGY [address] | [place] [address] | (Primary Dx); Chest | | | | [place], | [place], | pain; Coronary | | | | [place] [address] | [place] [address] | artery disease; | | | | [phone] | [phone] | Hyperlipidemia; | | | | | [...] to the emergency room at [facility] with a baljit st pain episode. [...] needed for Chest pain. 25 tablet 12 [place]-3 Fatty Acids (SALMON OIL-1000 PO) CAPS, one [...] was seen on the emergency room at [place] on 01/26/2014, he was ruled out A [...] pain. He is in class II of [place] [employer] functional class. There are no [...] ventricular arrhythmia performed by Dr. Gambino at [facility] on 01/30/2013. Patient had spontaneous PVCs [...] to go back in 3 days to [place] for an attempt of ablation under general [...] symptoms. He is in class II of [place] Heart [employer] functional class. There are no [...] made to ensure accuracy; however, inadvertent computerized brick stacker errors may be pre sent. Electronically signed [...] | | | | | | [place] [address] | | | | | | [phone] | | | | | | | [...] | | | | | | [place] [address] | | | | | | [phone] | | | | | | | | +--------+ + + + + | 05/21/ | Implant | Cardiology | Gemini Shaistakenneth, | Remote Device | | 2019 | Monitor | | [address] [facility] | Interrogation | | | | | [place], | (Primary Dx); | | | | | [place] [address] | Pacemaker; | | | | | [phone] | Sinoatrial node | | | | | | dysfunction ([facility]) | | | | | | with [...] of unspecified type of vessel, | | nulato or graft | + + | Hyperlipidemia Other and unspecified hyperlipidemia | + + | Symptomatic PVCs Other premature beats | + + | Hypertension Unspecified essential hypertension | + + documented in this encounter
--- OUTSIDE RECORDS SUMMARY | ~2020-04-15 | XMS | Encounter Summary ---
Demographics + + + | Address | [address] | | | [place] [address] | + + + | Home Phone | | + + + | Preferred Language | Unknown | + + + | Marital Status | | + + + | Episcopal Affiliation | 1013 | + + + | Race | Unknown | + + + | Ethnic Group | Unknown | + + + Author + + + | Author | [facility] | | | and [place] | + + + | Organization | [facility] | | | [...] Team Providers + +------+ + | Care Waterway Traffic Checker Name | Role | Phone | + +------+ + | Kirk French MD | PCP | | + +------+ + Encounter Details +--------+ + + + + | Date | Type | Department | Care Team | Description | +--------+ + + + + | 03/15/ | Orders Only | [facility] | Kirk French | | | 2017 | | [address] | | | | | [place], [place] | [address] | | | | | [address] | [place] [address] | | | | | [phone] | [phone] | | | | | | | [...] W | | | | | | [place], | | | | | | [place] [address] | | | | | | [phone] | | | | | | | | +--------+ + + + + | 05/01/ | Procedure | Cardiology | | | | 2019 | visit | | | | +--------+ + + + + | 05/01/ | Office | Cardiology | Silvia, | | | 2019 | Visit | | [address] | | | | | | [place], | | | | | | [place] [address] | | | | | | [phone] | | | | | | | | +--------+ + + + + | 05/21/ | Implant | Cardiology | Daljit Singletary, | Remote Device | 2019 | Monitor | | MD [address] [place] | Interrogation | | | | | [place], | (Primary Dx); | | | | | [place] [address] | Pacemaker; | | | | | [phone] | Sinoatrial node | | | | [...] | + +--------+ + + + | RHEUMATOID FACTOR, | Routin | 03/15/2017 | | Results for this | | QUANT | e | 1:51 PM | | procedure are in the | | | | PDT | | results section. | + +--------+ + + + documented in this encounter Results Rheumatoid Factor, Quant (03/15/2017 1:51 PM PDT) + +-------+ + + + | Component | Value | Ref Range | Performed | Pathologist | | | | | At | Signature | + +-------+ + + + | RHEUMATOID | <10 | [iU]/mL | EXTERNAL | | | FACTOR | | | LAB | | + +-------+ + + + + + | Specimen | + + | Blood specimen | | (specimen) | + + + +---------+ + + | Performing | Address | City/State/Zipcode | Phone Number | | Organization | | | | + +---------+ + + | EXTERNAL LAB | | | | + +---------+ + + documented in this encounter Visit Diagnoses Not on filedocumented in this encounter"
--- OUTSIDE RECORDS SUMMARY | ~2020-04-15 | XMS | Encounter Summary ---
Demographics + + + | Address | [address] | | | [place] [address] | + + + | Home Phone | | + + + | Preferred Language | Unknown | + + + | Marital Status | | + + + | Anabaptism Affiliation | 1013 | + + + | Race | Unknown | + + + | Ethnic Group | Unknown | + + + Author + + + | Author | [facility] | | | and [place] | + + + | Organization | [facility] | | | [...] Team Providers + +------+ + | Care Proof Technician Helper Name | Role | Phone | + +------+ + | Kirk French MD | PCP | | + +------+ + Reason for Visit + + + | Reason | Comments | + + + | Irritable Bowel | | | Syndrome | | + + + Encounter Details +--------+ + + + + | Date | Type | Department | Care Team | Description | +--------+ + + + + | 04/21/ | Telephone | [facility] [place] | Emmanuel Daniel MD | Irritable Bowel | | 2019 | | GASTROENTEROLOGY | [address] [place] | Syndrome | | | | [address] | [address] [place], [place] | | | | | [address] [place], [place] | [address] | | | | | [address] | | | | | | [phone] | | | +--------+ + + + [...] [place], | | | | | | [place] [address] | | | | | | [phone] | | | | | | | | +--------+ + + + + | 05/01/ | Procedure | Cardiology | | | | 2019 | visit | | | | +--------+ + + + + | 05/01/ | Office | Cardiology | Silvia, | | | 2019 | Visit | | [place] [address] | | | | | | [place], | | | | | | [place] [address] | | | | | | [phone] | | | | | | | | +--------+ + + + + | 05/21/ | Implant | Cardiology | Daljit Singletary, | Remote Device | | 2019 | Monitor | | [address] [place] | Interrogation | | | | | [place], | (Primary Dx); | | | | | [place] [address] | Pacemaker; | | | | | [phone] | Sinoatrial node | | | | | | dysfunction ([facility]) | | | | | | with symptomatic | | | | | | bradycardia | +--------+ + + + + documented as of this encounter Visit Diagnoses Not on filedocumented in this encounter"
--- OUTSIDE RECORDS SUMMARY | ~2020-04-15 | XMS | Encounter Summary ---
Demographics + + + | Address | [address] | | | [place] [address] | + + + | Home Phone [...] + | Author | [facility] | | | and [place] | + + + | Organization | [facility] | | | [...] Team Providers + +------+ + | Care Accounts Receivable Bookkeeper Name | Role | Phone | + +------+ + | Kirk French MD | PCP | | + +------+ + Encounter Details +--------+ + + + + | Date | Type | Department | Care Team | Description | +--------+ + + + + | 01/05/ | Orders Only | [facility] | Emmanuel Daniel MD | | | 2019 | | [facility] | [address] [place], [place] | | | | | PATHOLOGY [address] | [address] [place], [place] | | | | | BLVD [place], [place] | [address] | | | | | [address] | | | | | | [phone] | | | +--------+ + + + [...] | | | | | | [place], | | | | | | [place] [address] | | | | | | [phone] | | | | | | | | +--------+ + + + + | 05/01/ | Procedure | Cardiology | | | | 2019 | visit | | | | +--------+ + + + + | 05/01/ | Office | Cardiology | Silvia, | | | 2019 | Visit | | [address] | | | | | | [place], | | | | | | [place] [address] | | | | | | [phone] | | | | | | | | +--------+ + + + + | 05/21/ | Implant | Cardiology | Daljit Singletary, | Remote Device | | 2019 | Monitor | | [address] [facility] | Interrogation | | | | | [place], | (Primary Dx); | | | | | [place] [address] | Pacemaker; | | | | | [phone] | Sinoatrial node | | | | [...] | + +--------+ + + + | MISC PATHOLOGY | Routin | 01/05/2019 | | Results for this | | | e | 3:10 PM | | procedure are in the | | | | PST | | results section. | + +--------+ + + + documented in this encounter Results Miscellaneous Pathology (01/05/2019 3:10 PM PST) + + | Specimen | + + | | + + + + + | Narrative | Performed At | + + + | SPECIMEN(S): A DUODENAL BIOPSY SPECIMEN(S): B RIGHT COLON | EXTERNAL LAB | | SPECIMEN(S): C LEFT COLON SPECIMEN SOURCE: A. DUODENAL BIOPSY B. | | | RIGHT COLON C. LEFT COLON CLINICAL HISTORY: K59.1 (Functional | | | diarrhea), K62.5 (Hemorrhage of anus and rectum), K92.1 (Melena), | | | R15.9 (full incontinence of feces), Z95.0 (presence of cardiac | | | pacemaker), Z88.5 (Allergy status to narcotic agent status), I25.10 | | | (atherosclerotic heart disease of [place] coronary artery without | | | angina [...] chronic or | | | microscopic colitis. BES:[facility]:C3NR GROSS DESCRIPTION: A. The | | | specimen, labeled "[place], duodenal biopsy" is received in formalin | | | and consists of seven 0.1-0.5 cm lin fragments. Entirely submitted in | | | (A1). B. The specimen, labeled "[place], right colon" is received | | | in formalin and consists of six 0.2-0.3 cm lin fragments. Entirely | | | submitted in (B1). C. The specimen, labeled "[place], left colon" | | | is received in formalin and consists of six 0.2-0.3 cm lin-pink | | | fragments. Entirely submitted in (C1). am:AMB:rds PERFORMING | | | LABORATORY: The technical component was performed by [facility] | | | [facility], [address] [place] [address] (Spanish Literature Professor: | | | Kailey Stafford MD; CLIA# [id number]). Professional interpretation was | | | performed by [facility] ([facility] [employer]), [facility], [facility] | | | [place] [address] (Spanish Literature Professor: Ishaan | | | Anthony Dao; CLIA#: [id number]). Diagnostician: Ishaan Bay MD Pathologist Electronically Signed 01/06/2019 | | + + + + +---------+ + + | Performing | Address | City/State/Zipcode | Phone Number | | Organization | | | | + +---------+ + + | EXTERNAL LAB | | | | + +---------+ + + documented in this encounter Visit Diagnoses Not on filedocumented in this encounter
--- OUTSIDE RECORDS SUMMARY | ~2020-04-15 | XMS | Encounter Summary ---
Demographics + + + | Address | [address] | | | [place] [address] | + + + | Home Phone | | + + + | Preferred Language | Unknown | + + + | Marital Status | | + + + | Sikhism Affiliation | 1013 | + + + | Race | Unknown | + + + | Ethnic Group | Unknown | + + + Author + + + | Author | [facility] | | | and [place] | + + + | Organization | [facility] | | | [...] + +------+ + | Care Oil Well Services Superintendent Name | Role | Phone | + +------+ + | Kirk French MD | PCP | | + +------+ + Reason for Visit + + + | Reason | Comments | + + + | Case Management | referral from [facility] | + + + Encounter Details +--------+ + + + + | Date | Type | Department | Care Team | Description | +--------+ + + + + | 04/11/ | Telephone | [facility] | An Wang, | Case Management | | 2019 | | MED CTR CASE | RN | (referral from [facility]) | | | | MANAGEMENT [address] | | | | | | [place], | | | | | | [place] [address] | | | | | | [phone] | | | +--------+ + + + [...] [place], | | | | | | [place] [address] | | | | | | [phone] | | | | | | | | +--------+ + + + + | 05/01/ | Procedure | Cardiology | | | | 2019 | visit | | | | +--------+ + + + + | 05/01/ | Office | Cardiology | Silvia, | | | 2019 | Visit | | [address] [place] [address] | | | | | | [place], | | | | | | [place] [address] | | | | | | [phone] | | | | | | | | +--------+ + + + + | 05/21/ | Implant | Cardiology | Daljit Singletary, | Remote Device | 2019 | Monitor | | [facility] | Interrogation | | | | | [place], | (Primary Dx); | | | | | [place] [address] | Pacemaker; | | | | | [phone] | Sinoatrial node | | | | | | dysfunction (HCC) | | | | | | with symptomatic | | | | | | bradycardia | +--------+ + + + + documented as of this encounter Visit Diagnoses Not on filedocumented in this encounter"
--- OUTSIDE RECORDS SUMMARY | ~2020-04-15 | XMS | Encounter Summary ---
Demographics + + + | Address | [address] | | | [place] [address] | + + + | Home Phone [...] Team Providers + +------+ + | Care Distribution Systems Serviceperson Name | Role | Phone | + [...] Closed | | Radiology | Diagnoses | Gemini | Bria Blake | | | | | | MD Daljit | Imaging [address] | | | | | Palpitations | [address] | | | | | Procedures | [address] | [address] [place] | | | | | ECHO | [place], | [place], [place] | | | | | Complete | [place] [address] | [address] | | | | | | Phone: | Phone: | | | | | | [phone] | [phone] | | | | | | Fax: | Fax: | | | | | | [phone] | [phone] | +--------+--------+ + + + + Reason for Visit + + + | Reason | Comments | + + + | Chest Pain | OC: THR/Device check CC:Michael Amanda DO | + + + | Bradycardia | | + + + Encounter Details +--------+---------+ + + + | Date | Type | Department | Care Team | Description | +--------+---------+ + + + | 12/21/ | Office | [facility] | Daljit Singletary, | Palpitations | | 2012 | Visit | CARDIOLOGY [address] | (Primary Dx); PVC | | | | [place], | [place], | (premature | | | | [place] [address] | [place] [address] | ventricular | | | | [phone] | [phone] | contraction) | | | | | | | [...] + + + | Blood Pressure | 100/80 | 12/21/2012 11:31 AM | | | | | PST | | + + + + + | Pulse | 86 | 12/21/2012 11:31 AM | | | | | PST | | + + + + + | Temperature | - | - | | + + + + + | Respiratory Rate | 20 | 12/21/2012 11:31 AM | | | | | PST | | + + + + + | Oxygen Saturation | - | - | | + + + + + | Inhaled Oxygen | - | - | | | Concentration | | | | + + + + + | Weight | 114 kg (251 lb 4.8 | 12/21/2012 11:31 AM | | | | oz) | PST | | + + + + + | Height | 193 cm (6' 4") | 12/21/2012 11:31 AM | | | | | PST | | + + + + + | Body Mass Index | 30.59 | 12/21/2012 11:31 AM | | | | | PST | | + + + + + documented in this encounter Patient Instructions Patient Instructions Darlene Tirado RN - 12/21/2012 12:16 PM PST1. Stop Lisinopril today 2. Decrease Clonidine to 0.2mg one time daily for 4 days then stop it all together 3. Increase Metoprolol to 200mg - one time daily 4. Echo 5. Follow up soon for echo results and medication evaluation documented in this encounter Progress Notes Geri Angel ARNP - 12/21/2012 11:43 AM PSTFormatting of this note might be different fr om the original. Subjective: Patient ID: Moe Sanchez is a 52 y.o. male. HPI Amilcar Sanchez is a 52-year-old male with a history of hypertension, symptomatic bradycardia s tatus post Medtronic dual-chamber permanent pacemaker implantation 06/14/09, cigarette smokin g, and bipolar disorder with anxiety. He is being seen today for for treatment of increasin g palpitations associated with frequent PVCs. Patient states that in the past 3 months, he has had more symptoms of palpitations which wa s associated with chest pain, she breath and dizziness. On December 12, 2012, the palpitatio n was so bad that he felt so weak and tired. He decided to present himself to the emergency department at [facility] in [place], [place]. Today, patient is apprehensive of the palpitations. He wants to feel better. He denies an kle and leg swelling. 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 HTN (hypertension) Hypercholesterolemia Bipolar 1 disorder Insomnia Chronic neck pain Depression Hyperlipidemia BIPOLAR DISORDER UNSPECIFIED Anxiety depression Tobacco user Hypertension Nondependent opioid abuse in remission CAD Fibromyalgia Lumbago Chronic pain syndrome Thrombocytopenia 08/26/2010 Fatigue 09/15/2010 Abdominal pain, unspecified site 07/17/2011 Neck pain, chronic 09/24/2011 Syncope 10/09/2010 Obstructive sleep apnea 08/26/2010 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 CENTRAL SLEEP APNEA CONDS CLASSIFIED ELSEWHERE 12/15/2010 Ulcerative colitis Chest pain SINUS BRADYCARDIA PACEMAKER, PERMANENT - MEDTRONIC 06/14/09, SUW 06/14/2009 HEPATITIS B PUD FATTY LIVER DISEASE SUBSTANCE ABUSE, MULTIPLE Patient Active Problem List Diagnoses Date Noted POA Hypoglycemia 09/20/2012 HYPERLIPIDEMIA BIPOLAR DISORDER UNSPECIFIED ANXIETY DEPRESSION TOBACCO USER HYPERTENSION NONDEPENDENT OPIOID ABUSE IN REMISSION CAD FIBROMYALGIA LUMBAGO CHRONIC PAIN SYNDROME ULCERATIVE COLITIS Chest pain SINUS BRADYCARDIA HEPATITIS B PUD FATTY LIVER DISEASE SUBSTANCE ABUSE, MULTIPLE DEPRESSION 06/14/2012 NECK PAIN, CHRONIC 09/24/2011 ABDOMINAL PAIN, UNSPECIFIED SITE 07/17/2011 CENTRAL SLEEP APNEA CONDS CLASSIFIED ELSEWHERE 12/15/2010 SYNCOPE 10/09/2010 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 FATIGUE 09/15/2010 THROMBOCYTOPENIA 08/26/2010 OBSTRUCTIVE SLEEP APNEA 08/26/2010 PACEMAKER, PERMANENT - MEDTRONIC 06/14/09, SUW 06/14/2009 Past Surgical History Procedure Date Knee surgery 2004 meniscus-right Laminectomy 1991 L3-4 Lumbar discectomy 1991 L3-4 Appendectomy 2005 [place] Sinus surgery 1997 Lumbar fusion 01/2011 Pacemaker placement 06/14/09 Neck fusion 08/10/2012 [place] Family History Problem Relation Age of Onset Cancer Father colon,prostate History Social History Marital Status: Spouse Name: andreia Number of Children: 2 Years of Education: 12 Occupational History disabled Social History Main Topics Smoking status: Former Smoker Types: Cigars Quit date: 06/12/2009 Smokeless tobacco: Never Used Comment: 1 cigar weekly for 30 years Alcohol Use: No Drug Use: No Sexually Active: No to Andreia Other Topics Concern None Social History Narrative Exercise:Only in good weatherCaffeine:NoneLiving situation: with Andreia Current Outpatient Prescriptions Medication Sig Dispense Refill oxyCODONE 10 MG TABS Take 5-10 mg by mouth every 4 hours as needed. gabapentin (NEURONTIN) 600 MG tablet Take 600 mg by mouth 3 times daily. predniSONE (DELTASONE) 10 mg tablet Take 10 mg by mouth Daily. cyclobenzaprine (FLEXERIL) 10 mg tablet Take 10 mg by mouth 3 times daily as needed. diazepam (VALIUM) 5 mg tablet Take 5 mg by mouth Daily. glucose blood test strips (ONE TOUCH ULTRA TEST) strip Check glucose for symptomatic hypoglycemia prn 30 each 2 meclizine (ANTIVERT) 25 MG tablet Take 1 tablet by mouth 3 times daily as needed. 60 t ablet 3 pravastatin (PRAVACHOL) 40 MG tablet Take 1 tablet by mouth nightly. 90 tablet 3 valACYclovir (VALTREX) 500 mg tablet Take one by mouth every 12 hours for 3 days, then once daily thereafter. aspirin 81 MG tablet Take 81 mg by mouth Daily. metoprolol succinate (TOPROL-XL) 50 mg 24 hr tablet Take 50 mg by mouth 2 times daily. lisinopril (PRINIVIL, ZESTRIL) 20 mg tablet Take 20 mg by mouth Daily. Ascorbic Acid (VITAMIN C) 1000 MG tablet Take 1,000 mg by mouth Daily. [place]-3 Fatty Acids (SALMON OIL-1000 PO) CAPS, one capsule by mouth daily twice daily promethazine (PHENERGAN) 25 mg tablet Take 25 mg by mouth every 8 hours as needed. morphine (MS CONTIN) 15 mg 12 hr tablet Take 15 mg by mouth 2 times daily. MELATONIN TABS, at bedtime as needed diphenhydrAMINE (BENADRYL) 25 MG capsule Take 25 mg by mouth as needed. Current Outpatient Prescriptions on File Prior to Visit Medication Sig Dispense Refill glucose blood test strips (ONE TOUCH ULTRA TEST) strip Check glucose for symptomatic hypoglycemia prn 30 each 2 meclizine (ANTIVERT) 25 MG tablet Take 1 tablet by mouth 3 times daily as needed. 60 t ablet 3 pravastatin (PRAVACHOL) 40 MG tablet Take 1 tablet by mouth nightly. 90 tablet 3 valACYclovir (VALTREX) 500 mg tablet Take one by mouth every 12 hours for 3 days, then once daily thereafter. aspirin 81 MG tablet Take 81 mg by mouth Daily. metoprolol succinate (TOPROL-XL) 50 mg 24 hr tablet Take 50 mg by mouth 2 times daily. lisinopril (PRINIVIL, ZESTRIL) 20 mg tablet Take 20 mg by mouth Daily. Ascorbic Acid (VITAMIN C) 1000 MG tablet Take 1,000 mg by mouth Daily. [place]-3 Fatty Acids (SALMON OIL-1000 PO) CAPS, one capsule by mouth daily twice daily promethazine (PHENERGAN) 25 mg tablet Take 25 mg by mouth every 8 hours as needed. morphine (MS CONTIN) 15 mg 12 hr tablet Take 15 mg by mouth 2 times daily. MELATONIN TABS, at bedtime as needed diphenhydrAMINE (BENADRYL) 25 MG capsule Take 25 mg by mouth as needed. Allergies Allergen Reactions Alcohol-Fentanyl Clarithromycin Duloxetine Hydrocodone Penicillins Tramadol Hcl Review of Systems Objective: Physical Exam Constitutional: He is oriented to person, place, and time. He appears well-developed and we ll-nourished. Neck: No hepatojugular reflux and no JVD present. Carotid bruit is not present. Cardiovascular: Normal rate, regular rhythm, S1 normal, S2 normal, normal heart sounds, int act distal pulses and normal pulses. PMI is not displaced. Exam reveals no gallop, no S3, no S4, no distant heart sounds and no friction rub. No murmur heard. Pulmonary/Chest: Effort normal and breath sounds normal. No accessory muscle usage. No resp iratory distress. He has no wheezes. He has no rhonchi. He has no rales. Abdominal: Soft. Normal aorta and bowel sounds are normal. There is no tenderness. Neurological: He is alert and oriented to person, place, and time. Skin: No cyanosis. Nails show no clubbing. Psychiatric: He has a normal mood and affect. His mood appears not anxious. He does not exh ibit a depressed mood. BP 100/80 | Pulse 86 | Resp 20 | Ht 1.93 m (6' 4") | Wt 113.989 kg (251 lb 4.8 oz) | BMI 30 .59 kg/m2 PACEMAKER / ICD PARAMETERS Name: Moe Sanchez Date: December 21, 2012 : 1960 Investigator Internal Revenue: PARISA Velazquez Device Surgical Supplies Sterilizer: Propabletronic Sense (mV) Impedance (?) Capture (V) Capture (ms) A Lead 4-5.6 423 1.5 0.09 RV Lead >31.36 539 2.0 0.09 LV Lead Battery Impedance (?): 301 Battery Voltage (V): 2.8 AZ Interval (ms): 140 AR Interval (ms): 210 VA Conduction: Mode Switch Events: N/A % of time: -MECHANIC SOUND TECHNICIAN: 0.6 AP-MECHANIC SOUND TECHNICIAN: 1.3 -VS: 23.9 AP-VS: 74.2 MECHANIC SOUND TECHNICIAN: Magnetic Rate: 85 LINDA: 65 LEAH: Current [...] Estimated remaining device longevity is 8.5 years. Assessment: 1. Frequent palpitations associated with PVCs A. 48-hour Holter monitor from 01/20/10 shows predominant normal sinus rhythm with DDD pacin g noted, heart rate 60 to 155 beats per minute, average 87 beats per minute; occasional barbara ature atrial contractions, including rare couplets; very frequent premature ventricular cont ractions with occasional ventricular bigeminy noted. B.Patient states that in the past 3 months, he has had more symptoms of palpitations which was associated with chest pain, she breath and dizziness. On December 12, 2012, the palpita tion was so bad that he felt so weak and tired. He decided to present himself to the emerge ncy department at [facility] in [place], [place]. EKG showed normal sinus rhythm with frequent monomorphic PVCs. C. Patient reports a persistent symptoms of palpitations that happens everyday. Otherwise , there is no signs and symptoms of overt congestive heart failure. He is in a class I of N ew [place] Heart Association functional class. There is no fluid retention on physical examina tion. 2. Chest pain. a. Normal exercise sestamibi stress test on 05/25/09. LVEF by gated SPECT was 53%. 3. Profound bradycardia associated with dizziness, lightheadedness, and syncope: a. The echocardiogram on 05/25/09 revealed a normal left ventricular size and systolic function, LVEF 65 to 70%. b. Medtronic DDD permanent pacemaker implantation on 06/14/[address] Daljit Singletary. c. His device interrogation today shows normal and stable function. 4. Hypertension. a. Today blood pressure is well controlled. 5. Lightheadedness and dizziness/ presyncope: a. Episode of presyncope 05/28/10 evaluated in the emergency department, thought to hav e vasovagal symptoms. b. Blood pressure orthostatic 06/2010. HCTZ discontinued. 6. History of cigarette smoking. 7. Bipolar disease with anxiety/depression. Plan: 1. I spend time at length talking about natural course, treatment and prognosis of frequen t PVCs associated with palpitations, dizziness, chest pain and short of breath. 2. Clonidine will be weaned to off to provide higher blood pressure. 3. Lisinopril will be discontinued for the same reason. 4. Toprol-XL will be increased to 200 mg once a day to suppress PVCs. 5. Echocardiogram is warranted to assess cardiac structure. 6. If patient fails medical management for his PVCs, ablation in the next option. I will d iscuss this option with patient access specialist in [place]. 7. Followup in 2-4 weeks. Portions of this report were transcribed using voice recognition software. Every effort wa s made to ensure accuracy; however, inadvertent computerized product marketing director errors may be pre sent. documented in this encounter Plan of Treatment +--------+ + + + + | Date | Type | Specialty | Care Team | Description | +--------+ + + + + | 05/01/ | Appointment | Radiology | Silvia, | | | 2019 | | | PARISA [place] [address] | | | | | | [place], | | | | | | [place] [address] | | | | | | [phone] | | | | | | | | +--------+ + + + + | 05/01/ | Procedure | Cardiology | | | | 2019 | visit | | | | +--------+ + + + + | 05/01/ | Office | Cardiology | Silvia, | | | 2019 | Visit | | PARISA Vernon [address] | | | | | | [place], | | | | | | [place] [address] | | | | | | [phone] | | | | | | | | +--------+ + + + + | 05/21/ | Implant | Cardiology | Daljit Singletary, | Remote Device | 2019 | Monitor | | [address] [place] [address] | Interrogation | | | | | [place], | (Primary Dx); | | | | | [place] [address] | Pacemaker; | | | | | [phone] | Sinoatrial node | | | | | | dysfunction (HCC) | | | | | | with symptomatic | | | | | | bradycardia | +--------+ + + + + documented as of this encounter Results ECHO Complete (12/30/2012 4:08 PM PST) + + | Specimen | + + | | + + + + + | Narrative | Performed At | + + + | [facility] | [place] | | Department [address] [place] [address] | [facility] | | [ rep [address]] [ rep [facility] | | [facility]] Signed | - IMAGING | | | | | Patient Name: VICTOR HUGOMONAMOE W | | | Physician: MIGUELINA : 1960 Age: 52 Sex: M Unit | | | #: [id number] Exam Date: 12/30/12 Location: | | | [facility] [place] Report #: [id number] Page: | | | %(RAD)RES..mtdd.print.filter("pg") of %(RAD) | | | RES..mtdd.print.filter("tpg") | | | | | | Accession Number: [id number] | | | E C H O C A R D I O G R A P H Y R E P O R T | | | HEIGHT: 76" WEIGHT: 270# | | | PUG MACHINE OPERATOR: JAMEEL REFERRING DR: TIMMY DRAKE DR: | | | TIMMY DIAGNOSIS: PALPITATIONS | | | | | | M E A S U R E M E N T S | | | Aortic Root: 39 mm LV | | | Diameter-diastole: 50 mm Aortic Cusp Sep: 24 mm | | | LV Diameter--systole: 31 mm LA: | | | 48 mm Fractional Shortenin % | | | IVS--diastole: 10 mm PFV Aortic Valve: | | | IVS--systole: 14 mm MPG Mitral | | | Valve: mmHg LVPW--diastole: 11 mm | | | PFV TR Jet: 2.60 m/s LVPW--systole: | | | 20 mm RA/RV PP mmHg | | | | | | | | | ECHOCARDIOGRAPHY, 12/30/2012 INDICATIONS FOR | | | PROCEDURE: PALPITATIONS. TECHNICAL DATA: The quality | | | of the study is good. This is a 2-D echo / M-mode / Doppler / color | | | Doppler study. FINDINGS: Left atrial size is mildly | | | dilated. Left ventricular size is normal with normal wall | | | thickness and normal left ventricular systolic function. LVEF is | | | 65%. Aortic root is mildly dilated measuring 3.9 cm in diameter. | | | Right atrial size is normal. Right ventricular size is normal with | | | normal wall thickness and normal right ventricular systolic function. | | | Pericardium is normal. Pulmonary artery is normal. Aortic | | | valve is trileaflet and opens normally. There is a mild aortic valve | | | regurgitation. Mitral valve is mildly thickened with a mild mitral | | | valve regurgitation. Pulmonic valve is normal. Tricuspid valve | | | is normal with mild tricuspid valve regurgitation. IVC is normal. | | | IMPRESSION: 1. A MILD LEFT ATRIAL DILATATION. | | | 2. A NORMAL LEFT VENTRICULAR SIZE, WALL THICKNESS AND MOTION. | | | PRESERVED LEFT VENTRICULAR SYSTOLIC FUNCTION. LVEF IS 65%. | | | 3. A MILD AORTIC ROOT DILATATION MEASURING 3.9 CM IN | | | DIAMETER. 4. A MILDLY THICKENED MITRAL VALVE WITH A | | | MILD MITRAL VALVE REGURGITATION. 5. A MILD AORTIC VALVE | | | REGURGITATION. 6. A MILD TRICUSPID VALVE | | | REGURGITATION. Dictated Date/Time: 12/30/2012 16:08 | | | Transcribed Date/Time: 12/30/2012 16:34 Plant Maintenance Supervisor: | | | <<Signature on File>> | | | Daljit | | | MD Gemini [facility] FASE01/02/13 0955 <Electronically signed by | | | Daljit Singletary MD, FACC, FACP, ADELINE, YEN> Daljit | | | MD CLEOPATRA Singletary 12/30/12 1608 Plant Maintenance Supervisor: Jessica | | | Porfyhzhlwlim60/08/13 1634 Daljit Singletary MD FACC | | | FASE | | + + + + + + + + | Performing | Address | City/State/Zipcode | Phone Number | | Organization | | | | + + + + + | [facility] | [address] | [place] | [phone] | | [facility] | | [address] | | | - IMAGING | | | | + + + + + documented in this encounter Visit Diagnoses + + | Diagnosis | + + | Palpitations - Primary | + + | PVC (premature ventricular contraction) Other premature beats | + + documented in this encounter
--- OUTSIDE RECORDS SUMMARY | ~2020-04-15 | XMS | Encounter Summary ---
Demographics + + + | Address | [address] | | | [place] [address] | + + + | Home Phone | | + + + | Preferred Language | Unknown | + + + | Marital Status | | + + + | Latter Day Affiliation | 1013 | + + + [...] Team Providers + +------+ + | Care Sizer Hand Name | Role | Phone | + +------+ + | Kirk French MD | PCP | | + +------+ + Reason for Visit + + + | Reason | Comments | + + + | Follow-up | | + + + | Coronary Artery | | | Disease | | + + + | Hypertension | | + + + Encounter Details +--------+---------+ + + + | Date | Type | Department | Care Team | Description | +--------+---------+ + + + | 02/21/ | Office | [facility] | [place], | Coronary artery | | 2019 | Visit | CARDIOLOGY [address] | [place] [address] | disease involving | | | | [place], | [place], | chemehuevi coronary | | | | [place] [address] | [place] [address] | artery of chemehuevi | | | | [phone] | [phone] | heart without angina | | | | | | pectoris (Primary | | | | | | Dx); Symptomatic | | | | | | PVCs; Essential | | | | | | hypertension | +--------+---------+ + + + Social History [...] + + + | Blood Pressure | 98/60 | 02/21/2019 8:26 AM | | | | | PDT | | + + + + + | Pulse | 76 | 02/21/2019 8:26 AM | | | | | PDT | | + + + + + | Temperature | - | - | | + + + + + | Respiratory Rate | 16 | 02/21/2019 8:26 AM | | | | | PDT | | + + + + + | Oxygen Saturation | - | - | | + + + + + | Inhaled Oxygen | - | - | | | Concentration | | | | + + + + + | Weight | 110.2 kg (242 lb | 02/21/2019 8:26 AM | | | | 15.2 oz) | PDT | | + + + + + | Height | 193 cm (6' 4") | 02/21/2019 8:26 AM | | | | | PDT | | + + + + + | Body Mass Index | 29.57 | 02/21/2019 8:26 AM | | | | | PDT [...] of this encounter Patient Instructions Patient Instructions Janeen Vega ARNP - 02/21/2019 8:30 AM PDT1. Discontinue cloni dine 2. Start Amlodipine 5 mg once daily 3. Check BP documented in this encounter Progress Notes Janeen Vega ARNP - 02/21/2019 8:30 AM PDTFormatting of this note might be differen t from the original. PATIENT NAME: Moe Sanchez : 1960: AGE: 59 y.o. PRIMARY CARE: Kirk French MD OUTPATIENT FOLLOW UP VISIT Date of Service: 02/21/2019 HISTORY OF PRESENT ILLNESS: Moe Sanchez is a 59 y.o. male with a history of non-critical coronary artery d isease involving chemehuevi coronary artery of chemehuevi heart without angina pectoris, essential h ypertension, symptomatic bradycardia status post Medtronic dual-chamber permanent pacemaker implantation 06/14/09, frequent premature ventricular contractions status post ablation júniorin g 2012, and bipolar disorder with anxiety. He is being seen today for follow up. He was last seen 01/11/2019 at which time since patient was having increasing atypical angin a that has become more persistent over the last couple of months, he would be a candidate fo r a left heart catheterization to evaluate his coronary artery disease. Patient was not bee n able to tolerate nitrates because of "incapacitating" headaches. He is a maximum dose of metoprolol that he can tolerate, he was scheduled for CT angiogram of chest and abdomen to e valuate aortic aneurysm (thoracic and abdominal) Patient has been off flecainide, therefore he will continue to stay off the flecainide. It is unsure why patient stopped taking this m edication. But his device interrogation does not require any initiation of this medication at this point. Since that time, he had his left heart catheterization on 01/25/2019. He has had a good energy level. He tries to stay active. He enjoys hunting in his [place]. He has not had any chest pain or discomfort at rest or with exertion. He has on and of f chest pain and has used NTG once. He has not noticed shortness of breath. He has not paulino d any lightheadedness or dizziness. He has not noticed palpitations. He has not had leg sw elling. He is able to sleep laying down at night without any symptoms of shortness of breat h. He has not been using CPAP MEDICAL, SURGICAL, AND PERSONAL HISTORY Past Medical, [...] Preventative health care Coronary artery disease involving chemehuevi coronary artery of chemehuevi heart without angina pectoris Cannabis abuse, daily [...] Current Outpatient Prescriptions Medication Sig Dispense Refill acyclovir (ZOVIRAX) 5% ointment Apply 1 Application topically every 3 hours. Ascorbic Acid (VITAMIN C) 1000 MG tablet Take 1,000 mg by mouth Daily. aspirin 81 MG tablet Take 81 mg by mouth Daily. atorvaSTATin (LIPITOR) 20 mg tablet Take 1 tablet by mouth nightly. (Patient not taking : Reported on 02/21/2019) 90 tablet 2 cholecalciferoL (VITAMIN D-3) 1,000 units CAPS capsule Take by mouth. clonazePAM (KLONOPIN) 0.5 mg tablet Take 0.5 mg by mouth 3 times daily. cloNIDine (CATAPRES) 0.2 MG tablet Take 1 tablet by mouth 3 times daily. (Patient not t aking: Reported on 02/21/2019) 270 tablet 3 dicyclomine (BENTYL) 20 MG [...] day as needed ( One touch ) loperamide (IMODIUM A-D) 2 MG tablet Take 4 mg by mouth. losartan (COZAAR) 25 mg tablet Take 25 mg by mouth Daily. Methylsulfonylmethane (MSM) 1000 MG TABS Take One [...] 3RD DOSE, CALL 911 100 tablet 3 [place]-3 Fatty Acids (SALMON OIL-1000 PO) CAPS, one capsule by mouth daily twice daily ondansetron (ZOFRAN ODT) 4 mg disintegrating tablet Take 4 mg by mouth. ONE TOUCH DELICA LANCETS [facility] Check glucose as needed for hypoglycemia 100 [...] (See Comments) agitation "makes me very irritable" Isosorbide Nitrate Other (See Comments) headache Morphine Itching Fentanyl Itching and Rash Hydrocodone Itching and Anxiety Agitation and grumpiness Penicillins Rash Tramadol Hcl Itching ROS Review of Systems Constitutional: Negative for malaise/fatigue. Respiratory: Negative for shortness of breath. Cardiovascular: Negative for chest pain, palpitations and leg swelling. Neurological: Negative for dizziness and weakness. Lightheaded = No OBJECTIVE: PHYSICAL EXAM BP 98/60 | Pulse 76 | Resp 16 | Ht 1.93 m (6' 4") | Wt 110.2 kg (242 lb 15.2 oz) | BMI 29.57 kg/m Physical Exam Constitutional: He is [...] was found Confirmed by ANGELA MARADIAGA MD ([id number]) on 01/03/2019 8:10:39 PM LAB RESULTS reviewed during visit today primarily from [facility]: LIPID Lab Results Component Value [...] BNP 15 01/02/2019 I reviewed records from [facility] for angiogram results on 019 which is summarized in the HPI. RESULTS- I reviewed reports from [facility]: No results found. Left heart catheterization done on 01/25/18 shows noncritical coronary artery disease; border line 50% eccentric lesions to the mid LAD, luminal irregularity for the rest of the vascular territories, there is a right dominate circulation, normal LV systolic function with an EF of 75%, systemic blood pressure is normal, there was successful hemostasis with a TR hemosta tic band, by Daljit Singletary MD Above data and testing is reviewed this visit; testing below is historical data unless othe rwise specified. ASSESSMENT: 1. Non-critical Coronary artery disease involving chemehuevi coronary artery of chemehuevi heart [facility] angina pectoris: A.Normal exercise sestamibi stress [...] 64%. I. Left heart catheterization done on 01/25/[address] nary artery disease; borderline 50% eccentric lesions to the mid LAD, luminal irregularity f or the rest of the vascular territories, there is a right dominate circulation, normal LV sy stolic function with an EF of 75%, systemic blood pressure is normal, there was successful h emostasis with a TR hemostatic band, by MD Shawn Newby. Today, 02/21/2019, he is symptomatic. He has had chest pain on and off he has had taken N TG. He is on a medical regimen with aspirin, ARB, beta-edvin and statin. There are no signs or symptoms of overt congestive heart failure, and his physical exam sh ows no significant fluid retention. He is in class II- Symptoms with moderate exertion of t he [place] [employer] functional class. Heart failure stage A-pre-heart failure. Do a trial on Amlodipine and see if that alleviated his chest pain. 2. Symptomatic PVC's status post ablation: A. [...] performed by Dr Juan Diego Gambino at [facility] on 01/30/2013.Patient had spontaneous PVC's fro m 3 predominant morphology of left bundle branch block.Unfortunately, patient did have d ifficulty laying still during the procedure despite large amounts of sedation and coaching. After repeated attempts at ablation in one particular area, the patient continues to have rare PVC's, although, definitely less than pre procedure.Patient tolerated the procedur e, pacemaker was programmed to AAIR/DDDR lower rate of 78.And diltiazem was added to the regimen as well.However, patient decided not to started diltiazem.Patient is schedu led to go back in 3 days to [place] for an attempt of ablation under general [...] with heart rate of 75-130 b pm, PAC's in couplets and PVC's were noted, by Daljit Singletary MD. F. Today, 02/21/2019, he has had no issues with palpitations 3. Essential hypertension with goal blood pressure [...] n on rechecking echocardiogram next spring. D. Today, 02/21/2019, his blood pressure is on the low end of normal range. He would benefit from medication adjustment.. 5. Sinoatrial node dysfunction with symptomatic bradycardia: A. The echocardiogram on 05/25/09 revealed a normal left ventricular size and systolic function, LVEF 65 to 70%. B.Medtronic DDD permanent pacemaker implantation on 06/14/[address] Daljit Singletary. C. Last device interrogation shows no events. Heart rate histogram shows a fair distribution. There is a normal stable device function. Estimated remaining jacob vazquez longevity is 3.5 years. D. Device was not checked in office today. E. Today, 02/21/2019, he note palpitations are not completely controlled and woul d benefit from having medication adjustment. 6. Lightheadedness and dizziness/ presyncope: A. [facility] to have vasovagal [facility]. B. Today, 02/21/2019, not an issue today 7. History of cigarette smoking. A. He started smoking and he said he will stop after he finish is last 4 cigars . 8. Bipolar disease with anxiety/depression A. He is using clonazepam as needed. B. Today, 01/11/2019, he will see his PCP and see about his medication. PLAN: 1. Discontinue Clonidine 2. Start Amlodipine 5 mg once a day 3. He will follow up in 3 months for office visit and device interrogation, or sooner with concerns. Sooner if concerns Portions of this chart may have been created with [employer] voice recognition software. Occasi onal wrong-word or [...] W | | | | | | [place], | | | | | | [place] [address] | | | | | | [phone] | | | | | | | | +--------+ + + + + | 05/01/ | Procedure | Cardiology | | | | 2019 | visit | | | | +--------+ + + + + | 05/01/ | Office | Cardiology | [place], | | | 2019 | Visit | | [address] | | | | | | [place], | | | | | | [place] [address] | | | | | | [phone] | | | | | | | | +--------+ + + + + | 05/21/ | Implant | Cardiology | Daljit Singletary, | Remote Device | | 2019 | Monitor | | [address] [facility] | Interrogation | | | | | [place], | (Primary Dx); | | | | | [place] [address] | Pacemaker; | | | | | [phone] | Sinoatrial node | | | | | | dysfunction (HCC) | | | | | | with symptomatic | | | | | | bradycardia | +--------+ + + + + documented as of this encounter Visit Diagnoses + + | Diagnosis | + + | Coronary artery disease involving chemehuevi coronary artery of chemehuevi heart without | | angina pectoris - Primary | + + | Symptomatic PVCs Other premature beats | + + | Essential hypertension Unspecified essential hypertension | + + documented in this encounter
--- OUTSIDE RECORDS SUMMARY | ~2020-04-15 | XMS | Encounter Summary ---
Demographics + + + | Address | [address] | | | [place] [address] | + + + | Home Phone | | + + + | Preferred Language | Unknown | + + + | Marital Status | | + + + | Hoahaoism Affiliation | 1013 | + + + | Race | Unknown | + + + | Ethnic Group | Unknown | + + + Author + + + | Author | [facility] | | | and [place] | + + + | Organization | [facility] | | | and [...] Team Providers + +------+ + | Care Engraver Rubber Name | Role | Phone | + +------+ + | Kirk French MD | PCP | | + +------+ + Reason for Visit + + + | Reason | Comments | + + + | Follow-up, Office | wants to cancel his office appointment today | | Visit | | + + + Encounter Details +--------+ + + + + | Date | Type | Department | Care Team | Description | +--------+ + + + + | 12/14/ | Telephone | [facility] | Emmanuel Daniel MD | Follow-up, Office | | 2019 | | GASTROENTEROLOGY | [address], [place] | Visit (wants to | | | | [address] [place] | [address] [place] | cancel his office | | | | [address] [place] | [address] | appointment today) | | | | [address] | | | | | | [phone] | | | +--------+ + + + [...] [place], | | | | | | [place] [address] | | | | | | [phone] | | | | | | | | +--------+ + + + + | 05/01/ | Procedure | Cardiology | | | | 2019 | visit | | | | +--------+ + + + + | 05/01/ | Office | Cardiology | [place], | | | 2019 | Visit | | [place] [address] | | | | | | [place], | | | | | | [place] [address] | | | | | | [phone] | | | | | | | | +--------+ + + + + | 05/21/ | Implant | Cardiology | Daljit Singletary, | Remote Device | | 2019 | Monitor | | [address] [place] | Interrogation | | | | | [place], | (Primary Dx); | | | | | [place] [address] | Pacemaker; | | | | | [phone] | Sinoatrial node | | | | | | dysfunction (HCC) | | | | | | with symptomatic | | | | | | bradycardia | +--------+ + + + + documented as of this encounter Visit Diagnoses Not on filedocumented in this encounter"
--- OUTSIDE RECORDS SUMMARY | ~2020-04-15 | XMS | Encounter Summary ---
Demographics + + + | Address | [address] [place] [address] [address] | | | [place] [address] | + + + | Home Phone [...] + + + | Author | [facility] | + + + | Organization | [facility] | + + + | Address | Unknown | + + + | Phone | Unavailable | + + + Support + + + + + | Name | Relationship | Address | Phone | + + + + + | Rachel Valencia | [address]IE[address] | [place] | | | | | [address] | | + + + + + Care Team Providers + +------+ + | Care Automatic Edger Name | Role | Phone | + [...] | | | | l weight | [place], [place] | | | | | | loss | [address] | | | | | | Procedures | Phone: | | | | | | CONSULT TO | [phone] | | | | | | NON - [facility] | Fax: | | | | | | PROVIDER | [phone] | | | | | | CONSULT [...] 11/17/ | Telephone | [facility] | Blanca[place]ridgette [place], | Other (wants to | | 2019 | | Center at [facility] [address] | MD [address] | change location of | | | | [address] | [place], [place] | referral ) | | | | Mailcode: Center | [address] | | | | | for Health and | [phone] | | | | | [facility] [address] | | | | | | [place], [place] | | | | | | [address] | | | | | | [phone] | | | +--------+ + + + [...]
--- OUTSIDE RECORDS SUMMARY | ~2020-04-15 | XMS | Encounter Summary ---
Demographics + + + | Address | [address] | | | [place] [address] | + + + | Home Phone [...] Team Providers + +------+ + | Care Patch Finisher Name | Role | Phone | + +------+ + PCP | Unavailable | + +------+ + Encounter Details +--------+ + + + + | Date | Type | Department | Care Team | Description | +--------+ + + + + | 01/17/ | [facility] | [facility] | Jonas Ramos, | | | 2009 | Encounter | MED [facility] EMERGENCY | MD [address] | | | | | CENTER [address] | [facility] | | | | | [place] | [place] [address] | | | | | [address] | [phone] | | | | | [phone] | | | +--------+ + + + [...] W | | | | | | [place], | | | | | | [place] [address] | | | | | | [phone] | | | | | | | | +--------+ + + + + | 05/01/ | Procedure | Cardiology | | | | 2019 | visit | | | | +--------+ + + + + | 05/01/ | Office | Cardiology | Silvia, | | | 2019 | Visit | | [address] | | | | | | [place], | | | | | | [place] [address] | | | | | | [phone] | | | | | | | | +--------+ + + + + | 05/21/ | Implant | Cardiology | Daljit Singletary, | Remote Device | | 2019 | Monitor | | MD [address] | Interrogation | | | | | [place], | (Primary Dx); | | | | | [place] [address] | Pacemaker; | | | | | [phone] | Sinoatrial node | | | | | | dysfunction (HCC) | | | | | | with symptomatic | | | | | | bradycardia | +--------+ + + + + documented as of this encounter Visit Diagnoses Not on filedocumented in this encounter"
--- OUTSIDE RECORDS SUMMARY | ~2020-04-15 | XMS | Encounter Summary ---
Demographics + + + | Address | [address] | | | [place] [address] | + + + | Home Phone [...] Team Providers + +------+ + | Care Line And Frame Poler Name | Role | Phone | + +------+ + | Michael Amanda DO | PCP | | + +------+ + Reason for Visit + + + | Reason | Comments | + + + | Annual Exam | | + + + | Other | testosterone check/psa | + + + Encounter Details +--------+---------+ + + + | Date | Type | Department | Care Team | Description | +--------+---------+ + + + | 07/12/ | Office | [facility] | Michael Amanda, | Preventative health | | 2013 | Visit | MEDICINE [facility] | DO [address] | care (Primary Dx); | | | | [address] | [place], [place] | Prostate cancer | | | | [place], [place] | [address] | screening; | | | | [address] | | Hypercholesterolemia | | | | [phone] | | ; Hypertension; | | | | | | Fatigue; Erectile | | | | | | dysfunction; Chronic | | | | | | pain syndrome; | | | | | | Tobacco user | +--------+---------+ + + + Social History [...] + + + | Blood Pressure | 148/100 | 07/12/2013 3:50 PM | | | | | PDT | | + + + + + | Pulse | 80 | 07/12/2013 3:50 PM | | | | | PDT | | + + + + + | Temperature | 37.2 C (98.9 F) | 07/12/2013 3:50 PM | | | | | PDT | | + + + + + | Respiratory Rate | 16 | 07/12/2013 3:50 PM | | | | | PDT | | + + + + + | Oxygen Saturation | 98% | 07/12/2013 3:50 PM | | | | | PDT | | + + + + + | Inhaled Oxygen | - | - | | | Concentration | | | | + + + + + | Weight | 111.6 kg (246 lb) | 07/12/2013 3:50 PM | | | | | PDT | | + + + + + | Height | 193 cm (6' 4") | 07/12/2013 3:50 PM | | | | | PDT | | + + + + + | Body Mass Index | 29.94 | 07/12/2013 3:50 PM | | | | | PDT | | + + + + + documented in this encounter Progress Notes Michael Amanda, - 07/14/2013 10:53 PM PDTFormatting of this note might be different fro m the original. Subjective: Patient ID: Moe Sanchez is a 53 y.o. male. HPI Comments: Patient is here for annual exam. Complains of fatigue. Legs have his testos terone check. Patient history of low back pain with multiple surgeries. Also has neck pain. Sees jason huitron. He is on multiple pain medications. In addition he takes benzodiazepines. He is als o prescribed Marinol. He had an event where he had double vision vision changes. He was se en by Dr. Holm. No clear cause was found. He has seen senior internet sales consultant and has a rechec k plan. Possible medication side effect. TDAP is up-to-date. LAST PSA:12/16/2010 RESULT:0.14 LAST COLONOSCOPY:02/05/2009 RESULTnormal exam Patient's medications, allergies, past medical, surgical, social and family histories were reviewed and updated as appropriate. Review of Systems Constitutional: Positive for fatigue. Negative for chills, diaphoresis, activity change and appetite change. HENT: Positive for neck pain and neck stiffness. Negative for hearing loss, ear pain, conge stion, rhinorrhea, sneezing, postnasal drip and ear discharge. Respiratory: Negative. Cardiovascular: Negative. Negative for chest pain and palpitations. Genitourinary: Negative for urgency, penile swelling, scrotal swelling, difficulty urinatin g, penile pain and testicular pain. Erectile dysfunction Objective: Physical Exam Nursing note and vitals reviewed. Constitutional: He is oriented to person, place, and time. He appears well-developed and we ll-nourished. No distress. HENT: Head: Normocephalic and atraumatic. Right Ear: External ear normal. Left Ear: External ear normal. Nose: Nose normal. Mouth/Throat: Oropharynx is clear and moist. No oropharyngeal exudate. Eyes: Conjunctivae normal and EOM are normal. Pupils are equal, round, and reactive to ligh t. Right eye exhibits no discharge. Left eye exhibits no discharge. No scleral icterus. Neck: Normal range of motion. Neck supple. No JVD present. No tracheal deviation present. N o thyromegaly present. Cardiovascular: Normal rate, regular rhythm and intact distal pulses. Exam reveals no gall op and no friction rub. No murmur heard. Pulmonary/Chest: Breath sounds normal. No respiratory distress. He has no wheezes. He has n o rales. He exhibits no tenderness. Abdominal: Soft. Bowel sounds are normal. He exhibits no distension and no mass. There is n o tenderness. There is no rebound and no guarding. Musculoskeletal: He exhibits tenderness. He exhibits no edema. Lumbar back: He exhibits decreased range of motion, tenderness and pain. He exhibits n o spasm. Lymphadenopathy: He has no cervical adenopathy. Neurological: He is alert and oriented to person, place, and time. No cranial nerve deficit . He exhibits normal muscle tone. Coordination normal. Skin: Skin is warm and dry. No rash noted. He is not diaphoretic. No erythema. Psychiatric: He has a normal mood and affect. His behavior is normal. Judgment and thought content normal. Assessment: Plan: 1. Preventative health care Diet reviewed Exercise reviewed Reviewed preventive care protocols Scheduled due services Updated immunizations. Preventive services Plan and appropriate handouts given - Testosterone, Total and Free; Future - Lipid Profile; Future - TSH; Future - Comprehensive Metabolic Panel; Future 2. Prostate cancer screening - PSA, Screen; Future 3. Hypercholesterolemia Continue pravastatin at current dose. Lipid panel ordered. - Lipid Profile; Future - TSH; Future 4. Hypertension Elevated. - Lipid Profile; Future - TSH; Future 5. Fatigue Patient is high-risk for testosterone deficiency. He is on opiates and benzodiazepines. Free and total testosterone ordered. - Testosterone, Total and Free; Future 6. Erectile dysfunction - Testosterone, Total and Free; Future 7. Chronic pain syndrome Discussed the patient's current pain medications. Discussed that I find the combination o f high-dose opiates and benzodiazepines and marinol potentially dangerous combination. Pham ent will continue seeing his pain physician. Medications may have been involved with his re cent visual episode but this cannot be sure. 8. Tobacco user Counseled the quit. documented in this en counter Plan of Treatment +--------+ + + + + | Date | Type | Specialty | Care Team | Description | +--------+ + + + + | 05/01/ | Appointment | Radiology | Silvia, | | | 2019 | | | PARISA [address] | | | | | | [place], | | | | | | [place] [address] | | | | | | [phone] | | | | | | | | +--------+ + + + + | 05/01/ | Procedure | Cardiology | | | 2019 | visit | | | | +--------+ + + + + | 05/01/ | Office | Cardiology | Silvia, | | | 2019 | Visit | | [address]ISA [address] | | | | | | [place], | | | | | | [place] [address] | | | | | | [phone] | | | | | | | | +--------+ + + + + | 05/21/ | Implant | Cardiology | Daljit Singletary, | Remote Device | 2019 | Monitor | | [address] [place] | Interrogation | | | | | [place], | (Primary Dx); | | | | | [place] [address] | Pacemaker; | | | | | [phone] | Sinoatrial node | | | | | | dysfunction (HCC) | | | | | | with symptomatic | | | | | | bradycardia | +--------+ + + + + + +------+--------+ + + | Name | Type | Priori | Associated Diagnoses | Order Schedule | | | | ty | | | + +------+--------+ + + | Testosterone, Total | Lab | Routin | Preventative | 1 Occurrences | | and Free | | e | health care Fatigue | starting 07/12/2013 | | | | | Erectile | until 07/12/2014 | | | | | dysfunction | | + +------+--------+ + + | Lipid Profile | Lab | Routin | Preventative | 1 Occurrences | | | | e | health care | starting 07/12/2013 | | | | | Hypercholesterolemia | until 07/12/2014 | | | | | Hypertension | | + +------+--------+ + + | TSH | Lab | Routin | Preventative | 1 Occurrences | | | | e | health care | starting 07/12/2013 | | | | | Hypercholesterolemia | until 07/12/2014 | | | | | Hypertension | | + +------+--------+ + + | Comprehensive | Lab | Routin | Preventative | 1 Occurrences | | Metabolic Panel | | e | health care | starting 07/12/2013 | | | | | | until 07/12/2014 | + +------+--------+ + + | PSA, Screen | Lab | Routin | Prostate cancer | 1 Occurrences | | | | e | screening | starting 07/12/2013 | | | | | | until 07/12/2014 | + +------+--------+ + + documented as of this encounter Visit Diagnoses + + | Diagnosis | + + | Preventative health care - Primary Routine general medical examination at a health | | care facility | + + | Prostate cancer screening Special screening for malignant neoplasm of prostate | + + | Hypercholesterolemia Pure hypercholesterolemia | + + | Hypertension Unspecified essential hypertension | + + | Fatigue Other malaise and fatigue | + + | Erectile dysfunction Impotence of organic origin | + + | Chronic pain syndrome | + + | Tobacco user Tobacco use disorder | + + documented in this encounter
--- OUTSIDE RECORDS SUMMARY | ~2020-04-15 | XMS | Encounter Summary ---
Demographics + + + | Address | [address] | | | [place] [address] | + + + | Home Phone [...] Team Providers + +------+ + | Care Mud Car Worker Name | Role | Phone | + +------+ + | Kirk French MD | PCP | | + +------+ + Reason for Visit + + + | Reason | Comments | + + + | Follow-up, Office | | | Visit | | + + + | Rectal Bleed | | + + + Evaluate & Treat (Routine) +--------+--------+ + + + + | Status | Reason | Specialty | Diagnoses / | Referred By | Referred To | | | | | Procedures | Contact | Contact | +--------+--------+ + + + + | Closed | | Gastroenterol | Diagnoses | Manolo, | María, | | | | ogy | Abnormal | Kirk Guidry, | Emmanuel Fitzpatrick MD | | | | | weight loss | [address] | [address], | | | | | Anxiety | [address] | [address] | | | | | disorder, | [address] | [place], | | | | | unspecified | [place], [place] | [place] [address] | | | | | Chronic | [address] | Phone: | | | | | pain | Phone: | [phone] | | | | | syndrome | [phone] | Fax: | | | | | Procedures | Fax: | [phone] | | | | | office visit | [phone] | | +--------+--------+ + + + + Encounter Details +--------+---------+ + + + | Date | Type | Department | Care Team | Description | +--------+---------+ + + + | 12/26/ | Office | [facility] | Emmanuel Daniel MD | Functional diarrhea | | 2019 | Visit | GASTROENTEROLOGY | [address], [place] | (Primary Dx); | | | | [address] | [address] [place], [place] | Gastrointestinal | | | | [address] [place], [place] | [address] | hemorrhage | | | | [address] | | associated with | | | | [phone] | | anorectal source; | | | | | | Melena; Full | | | | | | incontinence of | | | | | | feces; Pacemaker | +--------+---------+ + + + Social History [...] + + + | Blood Pressure | 102/80 | 12/26/2018 9:50 AM | | | | | PST | | + + + + + | Pulse | 78 | 12/26/2018 9:50 AM | | | | | PST | | + + + + + | Temperature | - | - | | + + + + + | Respiratory Rate | 16 | 12/26/2018 9:50 AM | | | | | PST | | + + + + + | Oxygen Saturation | - | - | | + + + + + | Inhaled Oxygen | - | - | | | Concentration | | | | + + + + + | Weight | 109.5 kg (241 lb 6.5 | 12/26/2018 9:50 AM | | | | oz) | PST | | + + + + + | Height | 193 cm (6' 4") | 12/26/2018 9:50 AM | | | | | PST | | + + + + + | Body Mass Index | 29.38 | 12/26/2018 9:50 AM | | | | | PST [...] | | | | | | [place] [address] | | | | | | [phone] | | | | | | | | +--------+ + + + + | 05/01/ | Procedure | Cardiology | | | | 2019 | visit | | | | +--------+ + + + + | 05/01/ | Office | Cardiology | Silvia, | | | 2019 | Visit | | [address] | | | | | | [address] [place], | | | | | | [place] [address] | | | | | | [phone] | | | | | | | | +--------+ + + + + | 05/21/ | Implant | Cardiology | Daljit Singletary, | Remote Device | | 2019 | Monitor | | [address] [facility] | Interrogation | | | | | [place], | (Primary Dx); | | | | | [place] [address] | Pacemaker; | | | | | [phone] | Sinoatrial node | | | | | | dysfunction ([facility]) | | | | | | with symptomatic | | | | | | bradycardia | +--------+ + + + + documented as of this encounter Visit Diagnoses + + | Diagnosis | + + | Functional diarrhea - Primary | + + | Gastrointestinal hemorrhage associated with anorectal source | + + | Melena Blood in stool | + + | Full incontinence of feces | + + | Pacemaker Cardiac pacemaker in situ | + + documented in this encounter
--- OUTSIDE RECORDS SUMMARY | ~2020-04-15 | XMS | Encounter Summary ---
Demographics + + + | Address | [address] | | | [place] [address] | + + + | Home Phone [...] Team Providers + +------+ + | Care Inspector Health Care Facilities Name | Role | Phone | + [...] Description | +--------+--------+ + + + | 09/25/ | Refill | [facility] [place] | [place]via, | Medication Refill | | 2012 | | CARDIOLOGY [address] | [address] | | | | | [place], | [place], | | | | | [place] [address] | [place] [address] | | | | | [phone] | | | | | | | [...] W | | | | | | [place], | | | | | | [place] [address] | | | | | | [phone] | | | | | | | | +--------+ + + + + | 05/01/ | Procedure | Cardiology | | | | 2019 | visit | | | | +--------+ + + + + | 05/01/ | Office | Cardiology | Silvia, | | | 2019 | Visit | | [address] | | | | | | [place], | | | | | | [place] [address] | | | | | | [phone] | | | | | | | | +--------+ + + + + | 05/21/ | Implant | Cardiology | Daljit Singletary, | Remote Device | | 2019 | Monitor | | [address] [place] | Interrogation | | | | | [place] [place], | (Primary Dx); | | | | | [place] [address] | Pacemaker; | | | | | [phone] | Sinoatrial node | | | | | | dysfunction (HCC) | | | | | | with symptomatic | | | | | | bradycardia | +--------+ + + + + documented as of this encounter Visit Diagnoses Not on filedocumented in this encounter"
--- OUTSIDE RECORDS SUMMARY | ~2020-04-15 | XMS | Encounter Summary ---
Demographics + + + | Address | [address] [place] [address] [address] | | | [place] [address] | + + + | Home Phone | | + + + | Preferred Language | Unknown | + + + | Marital Status | | + + + | Mandaen Affiliation | Unknown | + + + | Race | White | + + + | Ethnic Group | Not or | + + + Author + + + | Author | [facility] | + + + | Organization | [facility] | + + + | Address | Unknown | + + + | Phone | Unavailable | + + + Support + + + + + | Name | Relationship | Address | Phone | + + + + + | Rachel Valencia | ELIE[address]ER | [place] | | | | | [address] | | + + + + + Care Team Providers + +------+ + | Care Corporate Learning Consultant Name | Role | Phone | + +------+ + | Darion Holden DO | PCP | | + +------+ + Reason for Visit + + + | Reason | Comments | + + + | Referral To | | | Gastroenterology | | + + + Encounter Details +--------+ + + + + | Date | Type | Department | Care Team | Description | +--------+ + + + + | 01/19/ | Abstract | [facility] | Clinic, | Referral To | | 2019 | | Center at [facility] [address] | Gastroenterology | Gastroenterology | | | | Kaylah Crane | | | | | | Mailcode: [place] | | | | | | [facility] | | | | | | [place] [address] | | | | | | [place], [place] | | | | | | [address] | | | | | | [phone] | | | +--------+ + + + [...]
--- OUTSIDE RECORDS SUMMARY | ~2020-04-15 | XMS | Encounter Summary ---
Demographics + + + | Address | [address] | | | [place] [address] | + + + | Home Phone | | + + + | Preferred Language | Unknown | + + + | Marital Status | | + + + | Latter-Day Affiliation | 1013 | + + + | Race | Unknown | + + + | Ethnic Group | Unknown | + + + Author + + + | Author | [facility] | | | and [place] | + + + | Organization | [facility] | | | [...] Team Providers + +------+ + | Care Operations Intelligence Superintendent Name | Role | Phone | [...] + + | 01/25/ | Office | [facility] | Daljit Singletary, | Other chest pain | | 2012 | Visit | CARDIOLOGY [address] | [address] [place] | (Primary Dx); PVC's | | | | [address] [place], | [place], | (premature | | | | [place] [address] | [place] [address] | ventricular | | | | [phone] | [phone] | contractions) | | | | | [...] note, lorraine painting has appointment to see flight security specialist for PVCs ablations consultation on January [...] tablet Take 1,000 mg by mouth Daily. [place]-3 Fatty Acids (SALMON OIL-1000 PO) CAPS, one [...] tablet Take 1,000 mg by mouth Daily. [place]-3 Fatty Acids (SALMON OIL-1000 PO) CAPS, one [...] | | | | | | [place] [address] | | | | | | [phone] | | | | | | | | +--------+ + + + + | 05/01/ | Procedure | Cardiology | | | | 2019 | visit | | | | +--------+ + + + + | 05/01/ | Office | Cardiology | Silvia | | | 2019 | Visit | | Janeen, DIE STAMPING PRESS OPERATOR [address] | | | | | | [address] [place], | | | | | | [place] [address] | | | | | | [phone] | | | | | | | | +--------+ + + + + | 05/21/ | Implant | Cardiology | Daljit Singletary, | Remote Device | | 2020 | Monitor | | [address] | Interrogation | | | | | [place], | (Primary Dx); | | | | | [place] [address] | Pacemaker; | | | | | [phone] | Sinoatrial node | | | | [...]
--- OUTSIDE RECORDS SUMMARY | ~2020-04-15 | XMS | Encounter Summary ---
Demographics + + + | Address | [address] | | | [place] [address] | + + + | Home Phone [...] Team Providers + +------+ + | Care Transportation Maintenance Specialist Name | Role | Phone | + +------+ + | Kirk French MD | PCP | | + +------+ + Reason for Visit +--------+ + | Reason | Comments | +--------+ + | Other | Missed [facility] | +--------+ + Encounter Details +--------+ + + + + | Date | Type | Department | Care Team | Description | +--------+ + + + + | 03/27/ | Telephone | [facility] [place] | Daljit Singletary, | Other (Missed | | 2020 | | CARDIOLOGY [address] | [address] | [facility]) | | | | [address], | [place], | | | | | [place] [address] | [place] [address] | | | | | [phone] | [phone] | | | | | | | [...] | | | | | | [place] [address] | | | | | | [phone] | | | | | | | | +--------+ + + + + | 05/01/ | Procedure | Cardiology | | | | 2019 | visit | | | | +--------+ + + + + | 05/01/ | Office | Cardiology | Silvia, | | | 2019 | Visit | | [address] | | | | | | [place], | | | | | | [place] [address] | | | | | | [phone] | | | | | | | | +--------+ + + + + | 05/21/ | Implant | Cardiology | Daljit Singletary, | Remote Device | 2019 | Monitor | | [address] [facility] | Interrogation | | | | | [place], | (Primary Dx); | | | | | [place] [address] | Pacemaker; | | | | | [phone] | Sinoatrial node | | | | | | dysfunction (HCC) | | | | | | with symptomatic | | | | | | bradycardia | +--------+ + + + + documented as of this encounter Visit Diagnoses Not on filedocumented in this encounter"
--- OUTSIDE RECORDS SUMMARY | ~2020-04-15 | XMS | Encounter Summary ---
Demographics + + + | Address | [address] | | | [place] [address] | + + + | Home Phone | | + + + | Preferred Language | Unknown | + + + | Marital Status | | + + + | Gnosticism Affiliation | 1013 | + + + | Race | Unknown | + + + | Ethnic Group | Unknown | + + + Author + + + | Author | [facility] | | | and [place] | + + + | Organization | [facility] | | | and [...] + +------+ + | Care Professor Of Oceanography Name | Role | Phone | + [...] + + | 06/25/ | Office | [facility] | [place]via, | SINUS BRADYCARDIA | | 2013 | Visit | CARDIOLOGY [address] | [address] [address] | (Primary Dx); | | | | [place], | [place], | Symptomatic PVCs; | | | | [place] [address] | [place] [address] | Coronary artery | | | | [phone] | [phone] | disease; | | | | | [...] time, he was admitted over observation at [facility] for a chest pain. Aortogram revealed [...] needed for Chest pain. 25 tablet 12 [place]-3 Fatty Acids (SALMON OIL-1000 PO) CAPS, one capsule by mouth daily twice daily ONE TOUCH DELICA LANCETS [facility] Check glucose as needed for [...] HGBEX 16.1 01/25/2014 I reviewed records from [facility] for emergency department visit o n 05/26/2014 [...] out. D. [facility] 12/25/13, shows non critical coronary artery disease, [...] yard. He is in class I-II of [place] [employer] funct ional class. There are [...] ventricular arrhythmia performed by Dr. Gambino at [facility] on 01/30/2013. Patient had spontaneous PVCs from [...] to go back in 3 days to [place] for an attempt of ablation under general [...] dizziness. He is in class I-II of [place] [employer] functional class. There [...] made to ensure accuracy; however, inadvertent computerized lead network engineer errors may be pre sent. Electronically signed [...] W | | | | | | [place], | | | | | | [place] [address] | | | | | | [phone] | | | | | | | | +--------+ + + + + | 05/01/ | Procedure | Cardiology | | | | 2019 | visit | | | | +--------+ + + + + | 05/01/ | Office | Cardiology | Silvia, | | | 2019 | Visit | | [address] | | | | | | [place], | | | | | | [place] [address] | | | | | | [phone] | | | | | | | | +--------+ + + + + | 05/21/ | Implant | Cardiology | Daljit Singletary, | Remote Device | 2019 | Monitor | | MD [address] [place] | Interrogation | | | | | [place], | (Primary Dx); | | | | | [place] [address] | Pacemaker; | | | | | [phone] | Sinoatrial node | | | | [...] of unspecified type of vessel, | | [facility] or graft | + + | Hypertension Unspecified essential hypertension | + + | Syncope Syncope and collapse | + + | Hyperlipidemia Other and unspecified hyperlipidemia | + + documented in this encounter
--- OUTSIDE RECORDS SUMMARY | ~2020-04-15 | XMS | Encounter Summary ---
Demographics + + + | Address | [address] [place] [address] [address] | | | [place] [address] | + + + | Home Phone | | + + + | Preferred Language | Unknown | + + + | Marital Status | | + + + | Lutheran Affiliation | Unknown | + + + | Race | White | + + + | Ethnic Group | Not or | + + + Author + + + | Author | [facility] | + + + | Organization | [facility] | + + + | Address | Unknown | + + + | Phone | Unavailable | + + + Support + + + + + | Name | Relationship | Address | Phone | + + + + + | Rachel Valencia | [address] | [place] | | | | | [address] | | + + + + + Care Team Providers + +------+ + | Care Health Education Specialist Name | Role | Phone | [...] External | | | | ogy | Diarrhea, | Bridgette Escobar MD | Order | | | | | unspecified | [address] | | | | | | type Rectal | Ave | | | | | | bleeding | [facility] [place] | | | | | | Procedures | [address] | | | | | | CONSULT TO | Phone: | | | | | | GASTROENTERO | [phone] | | | | | | LOGY | Fax: | | | | | | | [phone] | | + +--------+ + + + + Consultation (Urgent) + +--------+ + + + + | Status | Reason | Specialty | Diagnoses / | Referred By | Referred To | | | | | Procedures | Contact | Contact | + +--------+ + + + + | Referred | | Gastroenterol | Diagnoses | Blanca, | Gas Capsule | | | | ogy | Diarrhea, | Bridgette Escobar MD | [facility] [address] | | | | | unspecified | [address] | [address] | | | | | type | Ave | Mailcode: | | | | | Procedures | [place], [place] | [facility] | | | | | CONSULT TO | [address] | Health and | | | | | ENDOSCOPY | Phone: | Healing, | | | | | UNIT: | [phone] | Building [address] | | | | | BOWEL | Fax: | [place], [place] | | | | | CAPSULE | [phone] | [address] | | | | | ENDOSCOPY | | Phone: | | | | | | | [phone] | | | | | | | Fax: | | | | | | | [phone] | + +--------+ + + + + PROC - Dept/Practice Procedure (Urgent) +--------+--------+ + + + + | Status | Reason | Specialty | Diagnoses / | Referred By | Referred To | | | | | Procedures | Contact | Contact | +--------+--------+ + + + + | Denied | | Gastroenterol | Diagnoses | [place]anca, | Gas Endo | | | | ogy | Diarrhea, | Bridgette Escobar MD | [facility] [address] | | | | | unspecified | [address] | [address] | | | | | type Rectal | Ave | Mailcode: | | | | | bleeding | [place], [place] | [address] | | | | | Procedures | [address] | for Health | | | | | CONSULT TO | Phone: | and Healing, | | | | | ENDOSCOPY | [phone] | Building [address] | | | | | UNIT: | Fax: | [place], [place] | | | | | COLONOSCOPY | [phone] | [address] | | | | | | | Phone: | | | | | | | [phone] | | | | | | | Fax: | | | | | | | [phone] | +--------+--------+ + + + + Reason for Visit +--------+ + | Reason | Comments | +--------+ + | Other | | +--------+ + Encounter Details +--------+ + + + + | Date | Type | Department | Care Team | Description | +--------+ + + + + | 01/04/ | Telephone | Dig[facility]ive [facility] | Bridgette Rios, | Other | | 2020 | | [place] [facility] [address] | MD [address] | | | | | [address] | [facility] [place] | | | | | Mailcode: [place] | [address] | | | | | for Health and | [phone] | | | | | [facility] [address] | | | | | | [place], [place] | | | | | | [address] | | | | | | [phone] | | | +--------+ + + + [...] as of this encounter Plan of Treatment + + +--------+ + + | Name | Type | Priori | Associated Diagnoses | Order Schedule | | | | ty | | | + + +--------+ + + | VIDEO CAPSULE | Procedures | Routin | Diarrhea, | Expected: 01/23/2020 | | ENDOSCOPY | | e | unspecified type | | + + +--------+ + + documented as of this encounter Visit Diagnoses + + | Diagnosis | + + | Diarrhea, unspecified type - Primary | + + | Unintentional weight loss Loss of weight | + + | Rectal bleeding Hemorrhage of rectum and anus | + + documented in this encounter"
--- OUTSIDE RECORDS SUMMARY | ~2020-04-15 | XMS | Encounter Summary ---
Demographics + + + | Address | [address] | | | [place] [address] | + + + | Home Phone | | + + + | Preferred Language | Unknown | + + + | Marital Status | | + + + | Quaker Affiliation | 1013 | + + + [...] Team Providers + +------+ + | Care Transformer Coil Winder Name | Role | Phone | + +------+ + PCP | Unavailable | + +------+ + Encounter Details +--------+ + + + + | Date | Type | Department | Care Team | Description | +--------+ + + + + | 08/02/ | Hospital | [facility] | | | | 2001 | Encounter | MED CTR EMERGENCY | | | | | | [place] [address] | | | | | | [place] | | | | | | [address] | | | | | | [phone] | | | +--------+ + + + [...] | | | | | | [place] [address] | | | | | | [phone] | | | | | | | | +--------+ + + + + | 05/01/ | Procedure | Cardiology | | | | 2019 | visit | | | | +--------+ + + + + | 05/01/ | Office | Cardiology | [place], | | | 2019 | Visit | | [address] | | | | | | [place], | | | | | | [place] [address] | | | | | | [phone] | | | | | | | | +--------+ + + + + | 05/21/ | Implant | Cardiology | Daljit Singletary, | Remote Device | 2019 | Monitor | | [address] [place] | Interrogation | | | | | [place], | (Primary Dx); | | | | | [place] [address] | Pacemaker; | | | | | [phone] | Sinoatrial node | | | | | | dysfunction (HCC) | | | | | | with symptomatic | | | | | | bradycardia | +--------+ + + + + documented as of this encounter Visit Diagnoses Not on filedocumented in this encounter"
--- OUTSIDE RECORDS SUMMARY | ~2020-04-15 | XMS | Encounter Summary ---
Demographics + + + | Address | [address] | | | [place] [address] | + + + | Home Phone [...] Team Providers + +------+ + | Care Beef Grinder Name | Role | Phone | [...] [place] | | | | | | [address] | | | | | | [phone] | | | +--------+ + + + [...] W | | | | | | [place], | | | | | | [place] [address] | | | | | | [phone] | | | | | | | | +--------+ + + + + | 05/01/ | Procedure | Cardiology | | | | 2019 | visit | | | | +--------+ + + + + | 05/01/ | Office | Cardiology | [place], | | | 2019 | Visit | | [address] | | | | | | [place], | | | | | | [place] [address] | | | | | | [phone] | | | | | | | | +--------+ + + + + | 05/21/ | Implant | Cardiology | Dajlit Singletary, | Remote Device | | 2019 | Monitor | | [facility] | Interrogation | | | | | [address], | (Primary Dx); | | | | | [place] [address] | Pacemaker; | | | | | [phone] | Sinoatrial node | | | | | | dysfunction (HCC) | | | | | | with symptomatic | | | | | | bradycardia | +--------+ + + + + documented as of this encounter Visit Diagnoses Not on filedocumented in this encounter"
--- OUTSIDE RECORDS SUMMARY | ~2020-04-15 | XMS | Encounter Summary ---
Demographics + + + | Address | [address] | | | [place] [address] | + + + | Home Phone | | + + + | Preferred Language | Unknown | + + + | Marital Status | | + + + | Alevism Affiliation | 1013 | + + + | Race | Unknown | + + + | Ethnic Group | Unknown | + + + Author + + + | Author | [facility] | | | and [place] | + + + | Organization | [facility] | | [...] Team Providers + +------+ + | Care Kindergarten Teacher Assistant Name | Role | Phone | + +------+ + | Kirk French MD | PCP | | + +------+ + Encounter Details +--------+ + + + + | Date | Type | Department | Care Team | Description | +--------+ + + + + | 01/25/ | Hospital | [facility] | Daljit Singletary, | Stable angina | | 2019 | Encounter | MED [facility] CV INTRA OP | MD [address] | pectoris (HCC) | | | | [address] | [facility] [place], | | | | | [place] | [place] [address] | | | | | [address] | [phone] | | | | | [phone] | | | +--------+ + + + [...] as a collagen plugis used on the coldiron triny site to close the site, you [...] by your healthcare provider Date Last Reviewed: 09/22/201619991101-4119 [employer]. [address] [place] [address]. All righ ts reserved. This information is [...] + + + +---------+ + + | [place]-3 Fatty | CAPS, one capsule by | | 0 | 20 | | | Acids (SALMON | mouth [...] [address] | | | | | | [place], | | | | | | [place] [address] | | | | | | [phone] | | | | | | | | +--------+ + + + + | 05/01/ | Procedure | Cardiology | | | | 2019 | visit | | | | +--------+ + + + + | 05/01/ | Office | Cardiology | Silvia, | | | 2019 | Visit | | PARISA [place] [address] | | | | | | [place], | | | | | | [place] [address] | | | | | | [phone] | | | | | | | | +--------+ + + + + | 05/21/ | Implant | Cardiology | Daljit Singletary, | Remote Device | | 2019 | Monitor | | MD [address] | Interrogation | | | | | [place], | (Primary Dx); | | | | | [place] [address] | Pacemaker; | | | | | [phone] | Sinoatrial node | | | | [...] (1960) MEDICAL RECORD NUMBER: | | | [id number] OF PROCEDURE: 01/25/2019 [employer]: Daljit | | | MD Gemini PROCEDURES [...] Sanchez, (1960) | | OF PROCEDURE: 01/25/2019PRIMARY CHISEL MORTISER OPERATOR: Daljit Singletary MD PROCEDURES | | [...] | Aggressive medical management. | | at 9:33PRSC[facility] CARE PROVIDER:Kirk French MDFor additional detail as [...] performed and the equipment that was utilized, p becca refer to the Procedure Log. | + [...]
--- OUTSIDE RECORDS SUMMARY | ~2020-04-15 | XMS | Encounter Summary ---
Demographics + + + | Address | [address] | | | [place] [address] | + + + | Home Phone [...] Team Providers + +------+ + | Care Perinatal Tech Name | Role | Phone | [...] [address] | | | | [place], | [place], | | | | | [place] [address] | [place] [address] | | | | | [phone] | [phone] | | | | | | | [...] | | | | | | [place] [address] | | | | | | [phone] | | | | | | | | +--------+ + + + + | 05/01/ | Procedure | Cardiology | | | | 2019 | visit | | | | +--------+ + + + + | 05/01/ | Office | Cardiology | Silvia, | | | 2019 | Visit | | [address] | | | | | | [place], | | | | | | [place] [address] | | | | | | [phone] | | | | | | | | +--------+ + + + + | 05/21/ | Implant | Cardiology | Daljit Singletary, | Remote Device | | 2019 | Monitor | | [facility] | Interrogation | | | | | [address], | (Primary Dx); | | | | | [place] [address] | Pacemaker; | | | | | [phone] | Sinoatrial node | | | | | | dysfunction (HCC) | | | | | | with symptomatic | | | | | | bradycardia | +--------+ + + + + documented as of this encounter Visit Diagnoses Not on filedocumented in this encounter"
--- OUTSIDE RECORDS SUMMARY | ~2020-04-15 | XMS | Encounter Summary ---
Demographics + + + | Address | [address] | | | [place] [address] | + + + | Home Phone [...] Providers + +------+ + | Care Pattern Maker Programer Name | Role | Phone | + [...] + + | 01/04/ | Telephone | [facility] | Emmanuel Daniel MD | Other | | 2019 | | GASTROENTEROLOGY | [address] [place] [place] | | | | | [address] [place] | [address] [place], [place] | | | | | [address] [place], [place] | [address] | | | | | [address] | | | | | | [phone] | | | +--------+ + + + [...] | | | | | | [place] [address] | | | | | | [phone] | | | | | | | | +--------+ + + + + | 05/01/ | Procedure | Cardiology | | | | 2019 | visit | | | | +--------+ + + + + | 05/01/ | Office | Cardiology | Silvia, | | | 2019 | Visit | | [address] | | | | | | [place], | | | | | | [place] [address] | | | | | | [phone] | | | | | | | | +--------+ + + + + | 05/21/ | Implant | Cardiology | Daljit Singletary, | Remote Device | | 2019 | Monitor | | [address] [facility] | Interrogation | | | | | [address], | (Primary Dx); | | | | | [place] [address] | Pacemaker; | | | | | [phone] | Sinoatrial node | | | | | | dysfunction (HCC) | | | | | | with symptomatic | | | | | | bradycardia | +--------+ + + + + documented as of this encounter Visit Diagnoses Not on filedocumented in this encounter"
--- OUTSIDE RECORDS SUMMARY | ~2020-04-15 | XMS | Encounter Summary ---
Demographics + + + | Address | [address] | | | [place] [address] | + + + | Home Phone [...] Team Providers + +------+ + | Care Floor Framer Name | Role | Phone | + [...] 2019 | | GASTROENTEROLOGY | [address] | | | | | [address] | [place] | | | | | [address] [place] | [place] [address] | | | | | [address] | | | | | | [phone] | | | +--------+ + + + [...] W | | | | | | [place], | | | | | | [place] [address] | | | | | | [phone] | | | | | | | | +--------+ + + + + | 05/01/ | Procedure | Cardiology | | | | 2019 | visit | | | | +--------+ + + + + | 05/01/ | Office | Cardiology | Silvia, | | | 2019 | Visit | | [address] | | | | | | [place], | | | | | | [place] [address] | | | | | | [phone] | | | | | | | | +--------+ + + + + | 06/30/ | Implant | Cardiology | Daljit Singletary, | Remote Device | | 2019 | Monitor | | [address] [facility] | Interrogation | | | | | [address], | (Primary Dx); | | | | | [place] [address] | Pacemaker; | | | | | [phone] | Sinoatrial node | | | | | | dysfunction (HCC) | | | | | | with symptomatic | | | | | | bradycardia | +--------+ + + + + documented as of this encounter Visit Diagnoses Not on filedocumented in this encounter"
--- OUTSIDE RECORDS SUMMARY | ~2020-04-15 | XMS | Encounter Summary ---
Demographics + + + | Address | [address] | | | [place] [address] | + + + | Home Phone [...] Providers + +------+ + | Care Inspector [employer]ar [employer] Electronics Name | Role | Phone | + +------+ + PCP | Unavailable | + +------+ + Encounter Details +--------+ + + + + | Date | Type | Department | Care Team | Description | +--------+ + + + + | 12/05/ | Hospital | [facility] GENER[facility] OP | Conversion | | | 2003 | Encounter | CONVERSION | Transaction, | | | | | DEPARTMENT [address] | Provider Unknown | | | | | [address] | | | | | | [place], [place] | (Fax) | | | | | [address] | | | | | | [phone] | | | +--------+ + + + [...] | 05/01/ | Appointment | Radiology | [place], | | | 2019 | | | PARISA Vernon [address] | | | | | | [place], | | | | | | [place] [address] | | | | | | [phone] | | | | | | | | +--------+ + + + + | 05/01/ | Procedure | Cardiology | | | | 2019 | visit | | | | +--------+ + + + + | 05/01/ | Office | Cardiology | Silvia, | | | 2019 | Visit | | PARISA [place] [address] | | | | | | [place], | | | | | | [place] [address] | | | | | | [phone] | | | | | | | | +--------+ + + + + | 05/21/ | Implant | Cardiology | Daljit Singletary, | Remote Device | | 2019 | Monitor | | [address] [place] | Interrogation | | | | | [place], | (Primary Dx); | | | | | [place] [address] | Pacemaker; | | | | | [phone] | Sinoatrial node | | | | | | dysfunction (HCC) | | | | | | with symptomatic | | | | | | bradycardia | +--------+ + + + + documented as of this encounter Visit Diagnoses Not on filedocumented in this encounter"
--- OUTSIDE RECORDS SUMMARY | ~2020-04-15 | XMS | Encounter Summary ---
Demographics + + + | Address | [address] | | | [place] [address] | + + + | Home Phone [...] Team Providers + +------+ + | Care Visual Journalist Name | Role | Phone | + [...] 2016 | | CARDIOLOGY [address] | AGRONOMY SUPERVISOR [address] | | | | | [place], | [place], [place] | | | | | [place] [address] | [address] | | | | | [phone] | | | +--------+--------+ + + + [...] W | | | | | | [place], | | | | | | [place] [address] | | | | | | [phone] | | | | | | | | +--------+ + + + + | 05/01/ | Procedure | Cardiology | | | | 2019 | visit | | | | +--------+ + + + + | 05/01/ | Office | Cardiology | [place], | | | 2019 | Visit | | PARISA [place] [address] | | | | | | [place], | | | | | | [place] [address] | | | | | | [phone] | | | | | | | | +--------+ + + + + | 05/21/ | Implant | Cardiology | Daljit Singletary, | Remote Device | | 2019 | Monitor | | [address] [facility] | Interrogation | | | | | [place], | (Primary Dx); | | | | | [place] [address] | Pacemaker; | | | | | [phone] | Sinoatrial node | | | | | | dysfunction (HCC) | | | | | | with symptomatic | | | | | | bradycardia | +--------+ + + + + documented as of this encounter Visit Diagnoses Not on filedocumented in this encounter"
--- OUTSIDE RECORDS SUMMARY | ~2020-04-15 | XMS | Encounter Summary ---
Demographics + + + | Address | [address] | | | [place] [address] | + + + | Home Phone [...] + + +---------+ + | Maria Isabel aSnchez | ECON | Unknown | | + + +---------+ + Care Team Providers + +------+ + | Care Choir Teacher Name | Role | Phone | [...] | 10/09/ | Telephone | [facility] | Michael Amanda, | Other | | 2012 | | MEDICINE [place] | DO [address] | | | | | [address] | [place] | | | | | [place] | [address] | | | | | [address] | | | | | | [phone] | | | +--------+ + + + [...] W | | | | | | [place], | | | | | | [place] [address] | | | | | | [phone] | | | | | | | | +--------+ + + + + | 05/01/ | Procedure | Cardiology | | | | 2019 | visit | | | | +--------+ + + + + | 05/01/ | Office | Cardiology | Silvia, | | | 2019 | Visit | | PARISA [address] | | | | | | [place], | | | | | | [place] [address] | | | | | | [phone] | | | | | | | | +--------+ + + + + | 05/21/ | Implant | Cardiology | Daljit Singletary, | Remote Device | 2019 | Monitor | | [place] | Interrogation | | | | | [place], | (Primary Dx); | | | | | [place] [address] | Pacemaker; | | | | | [phone] | Sinoatrial node | | | | | | dysfunction (HCC) | | | | | | with symptomatic | | | | | | bradycardia | +--------+ + + + + documented as of this encounter Visit Diagnoses Not on filedocumented in this encounter"
--- OUTSIDE RECORDS SUMMARY | ~2020-04-15 | XMS | Encounter Summary ---
Demographics + + + | Address | [address] | | | [place] [address] | + + + | Home Phone [...] Team Providers + +------+ + | Care C.O.D. Audit Clerk Name | Role | Phone | [...] Provider Unknown | | | | | [place], [place] | [phone] | | | | | [address] | | | | | | [phone] | | | +--------+ + + + [...] + + + +---------+ + + | [place]-3 Fatty | CAPS, one capsule by | [...] | | | | | | | #[id number], exp 07/2016 | | | | | [...] [place], | | | | | | [place] [address] | | | | | | [phone] | | | | | | | | +--------+ + + + + | 05/01/ | Procedure | Cardiology | | | | 2019 | visit | | | | +--------+ + + + + | 05/01/ | Office | Cardiology | [place], | | | 2019 | Visit | | PARISA [place] [address] | | | | | | [place], | | | | | | [place] [address] | | | | | | [phone] | | | | | | | | +--------+ + + + + | 05/21/ | Implant | Cardiology | Daljit Singletary, | Remote Device | | 2020 | Monitor | | [address] [place] | Interrogation | | | | | [place], | (Primary Dx); | | | | | [place] [address] | Pacemaker; | | | | | [phone] | Sinoatrial node | | | | | | dysfunction ([facility]) | | | | | | with symptomatic | | | | | | bradycardia | +--------+ + + + + documented as of this encounter Procedures + +--------+ + + + | Procedure Name | Priori | Date/Time | Associated Diagnosis | Comments | | | ty | | | | + +--------+ + + + | XR LUMBAR SPINE 4 + | Routin | 12/29/2012 | | Results for this | | VW | e | 11:32 PM | | procedure are in the | | | | PST | | results section. | + +--------+ + + + documented in this encounter Results XR Lumbar Spine 4 + Vw (12/29/2012 11:32 PM PST) + + | Specimen | + + | | + + + + + | Narrative | Performed At | + + + | This is a non-reportable procedure without a radiologist report and | | | is used for image storage only | | + + + + + | Procedure Note | + + | Kalpesh Brown - 07/07/2019 5:05 AM PDT This is a non-reportable procedure | | without a radiologist report and isused for image storage only | + + documented in this encounter Visit Diagnoses + + | Diagnosis | + + | Pain Generalized pain | + + documented in this encounter"
--- OUTSIDE RECORDS SUMMARY | ~2020-04-15 | XMS | Encounter Summary ---
Demographics + + + | Address | [address] | | | [place] [address] | + + + | Home Phone [...] Team Providers + +------+ + | Care Swahili Teacher Name | Role | Phone | [...] + | 01/03/ | Office | [facility] | [place], | CAD (coronary artery | | 2012 | Visit | CARDIOLOGY [address] | Janeen, HIGHWAY ENGINEERING TECHNICIAN [address] | disease) (Primary | | | | [place], | [place], | Dx); Bradycardia; | | | | [place] [address] | [place] [address] | HTN (hypertension); | | | | [phone] | [phone] | Lightheadedness | | | | | [...] tablet Take 1,000 mg by mouth Daily. [place]-3 Fatty Acids (SALMON OIL-1000 PO) CAPS, one [...] himself t o the emergency department at [facility] in [place], [place]. EKG showed normal s inus rhythm [...] Refer patient to an electrophysiology specialist in [place] for further evaluation for P VC's ablation. I have given verbal instructions and written material for patient to read mo re about the procedure. 2. Check blood pressure and pulse twice daily for two weeks and return the log to our offic e. 3. Followup appointment after patient's appointment with photographic specialist/ablation. IJaneen ARNP, saw this patient under the direct supervision of Daljit Singletary MD Portions of this report were transcribed using voice recognition software. Every effort wa s made to ensure accuracy; however, inadvertent computerized nut roaster helper errors may be pre sent. documented in [...] | | | | | | [place] [address] | | | | | | [phone] | | | | | | | | +--------+ + + + + | 05/01/ | Procedure | Cardiology | | | | 2019 | visit | | | | +--------+ + + + + | 05/01/ | Office | Cardiology | [place], | | | 2019 | Visit | | PARISA [place] [address] | | | | | | [place], | | | | | | [place] [address] | | | | | | [phone] | | | | | | | | +--------+ + + + + | 05/21/ | Implant | Cardiology | Daljit Singletary, | Remote Device | 2019 | Monitor | | [address] [place] | Interrogation | | | | | [place], | (Primary Dx); | | | | | [place] [address] | Pacemaker; | | | | | [phone] | Sinoatrial node | | | | | | dysfunction (HCC) | | | | | | with symptomatic | | | | | | bradycardia | +--------+ + + + + documented as of this encounter Visit Diagnoses + + | Diagnosis | + + | CAD (coronary artery disease) - Primary Coronary atherosclerosis of unspecified type | | of vessel, [place] or graft | + + | Bradycardia Other specified cardiac dysrhythmias | + + | HTN (hypertension) Unspecified essential hypertension | + + | Lightheadedness Dizziness and giddiness | + + documented in this encounter
--- OUTSIDE RECORDS SUMMARY | ~2020-04-15 | XMS | Encounter Summary ---
Demographics + + + | Address | [address] | | | [place] [address] | + + + | Home Phone [...] Team Providers + +------+ + | Care Char Filter Operator Helper Name | Role | Phone [...] 2015 | | CARDIOLOGY [address] | WATER JET OPERATOR [address] [place] | | | | | [place], | [place], [place] | | | | | [place] [address] | [address] | | | | | [phone] | | | +--------+--------+ + + + [...] W | | | | | | [place], | | | | | | [place] [address] | | | | | | [phone] | | | | | | | | +--------+ + + + + | 05/01/ | Procedure | Cardiology | | | | 2019 | visit | | | | +--------+ + + + + | 05/01/ | Office | Cardiology | Silvia, | | | 2019 | Visit | | [address] | | | | | | [place], | | | | | | [place] [address] | | | | | | [phone] | | | | | | | | +--------+ + + + + | 05/21/ | Implant | Cardiology | Daljit Singletary, | Remote Device | | 2019 | Monitor | | [address] [facility] | Interrogation | | | | | [place], | (Primary Dx); | | | | | [place] [address] | Pacemaker; | | | | | [phone] | Sinoatrial node | | | | | | dysfunction (HCC) | | | | | | with symptomatic | | | | | | bradycardia | +--------+ + + + + documented as of this encounter Visit Diagnoses Not on filedocumented in this encounter"
--- OUTSIDE RECORDS SUMMARY | ~2020-04-15 | XMS | Encounter Summary ---
Demographics + + + | Address | [address] | | | [place] [address] | + + + | Home Phone [...] Providers + +------+ + | Care Manager Battery Name | Role | Phone | + [...] 2019 | | GASTROENTEROLOGY | [address], [place] | | | | | [address] [place] | [address] [place], [place] | | | | | [address] [place], [place] | [address] | | | | | [address] | | | | | | [phone] | | | +--------+ + + + [...] | | | | | | [place] [address] | | | | | | [phone] | | | | | | | | +--------+ + + + + | 05/01/ | Procedure | Cardiology | | | | 2019 | visit | | | | +--------+ + + + + | 05/01/ | Office | Cardiology | Sivlia, | | | 2019 | Visit | | [address] | | | | | | [place], | | | | | | [place] [address] | | | | | | [phone] | | | | | | | | +--------+ + + + + | 05/21/ | Implant | Cardiology | Daljit Singletary, | Remote Device | | 2019 | Monitor | | [address] [facility] | Interrogation | | | | | [place], | (Primary Dx); | | | | | [place] [address] | Pacemaker; | | | | | [phone] | Sinoatrial node | | | | | | dysfunction (HCC) | | | | | | with symptomatic | | | | | | bradycardia | +--------+ + + + + documented as of this encounter Visit Diagnoses Not on filedocumented in this encounter"
--- OUTSIDE RECORDS SUMMARY | ~2020-04-15 | XMS | Encounter Summary ---
Demographics + + + | Address | [address] | | | [place] [address] | + + + | Home Phone [...] Team Providers + +------+ + | Care Stocking And Box Shop Supervisor Name | Role | Phone | [...] | | | | CENTER [address] [place] | [address] | (Primary Dx) | | | | [place], [place] | [place], [place] | | | | | [address] | [address] | | | | | [phone] | | | +--------+ + + + [...] + + + +---------+ + + | [place]-3 Fatty | CAPS, one capsule by | [...] | | | | | | [place] [address] | | | | | | [phone] | | | | | | | | +--------+ + + + + | 05/01/ | Procedure | Cardiology | | | | 2019 | visit | | | | +--------+ + + + + | 05/01/ | Office | Cardiology | Silvia, | | | 2019 | Visit | | [address] | | | | | | [place], | | | | | | [place] [address] | | | | | | [phone] | | | | | | | | +--------+ + + + + | 05/21/ | Implant | Cardiology | Sydni Singletary, | Remote Device | 2019 | Monitor | | [facility] | Interrogation | | | | | [place], | (Primary Dx); | | | | | [place] [address] | Pacemaker; | | | | | [phone] | Sinoatrial node | | | | | | dysfunction ([facility]) | | | | | [...] W?MRN: | | | | | | [id number] | | | [id number] | | | his | | | [...] | | | ent/60 | | | [id number] | | | -5586- | | | [...] | | | St. | | | [place] | | | y | | | [...] | | | ext. | | | [address] | | | or go | | [...] | | | M.D. | | | Vine Pruner | | | al | | | [...] | | | | | | [employer] | | | | | [...] + | [facility] | [address] | [place] | [phone] | | [facility] | | [address] | | | - LABORATORY | | [...] + | [facility] | [address] | [place] | [phone] | | [facility] | | [address] | | | - LABORATORY | | [...] | + + + + + | [facility] | [address] | [place] | [phone] | | [facility] | | [address] | | | - LABORATORY | | [...] 16 | 7 - 18 mg/dL | [facility] | | | | | | [facility] | | | | | | MEDICAL | | | | | | CENTER - | | | | | | LABORATORY | | + + + + + + | Creatinine | 0.82 | 0.60 - 1.30 | [facility] | | | | | mg/dL | [facility] | | | | | | MEDICAL | | | | | | CENTER - | | | | | | LABORATORY | | + + + + + + | eGFR if not | >60Comment: GLOMERULAR | >=60 | [facility] | | | | FILTRATION | mL/min/1.73m2 | [facility] | | | [place] | RATE,ESTIMATED | | MEDICAL | | | | mL/min/1.83q4Qaoc than | | CENTER - | | [...] [address] | [place] | [phone] | | [facility] | | [address] | | | - LABORATORY | | [...] [address] | [place] | [phone] | | [facility] | | [address] | | | - LABORATORY | | [...] [address] | [place] | [phone] | | [facility] | | [address] | | | - LABORATORY | | [...] SYDNI | | | | | | ([id number]) on 06/22/2018 | | | | | [...]
--- OUTSIDE RECORDS SUMMARY | ~2020-04-15 | XMS | Encounter Summary ---
Demographics + + + | Address | [address] | | | [place] [address] | + + + | Home Phone [...] Providers + +------+ + | Care Retail Service Technician Name | Role | Phone | [...] Refill | | 2014 | | [facility] | DO [address] | | | | | [address] | [place] | | | | | [place], [place] | [address] | | | | | [address] | | | | | | [phone] | | | +--------+--------+ + + + [...] | | | | | | [place] [address] | | | | | | [phone] | | | | | | | [...] | | | | | | [place] [address] | | | | | | [phone] | | | | | | | | +--------+ + + + + | 05/21/ | Implant | Cardiology | Daljit Singletary, | Remote Device | | 2019 | Monitor | | [address] [place] | Interrogation | | | | | [address], | (Primary Dx); | | | | | [place] [address] | Pacemaker; | | | | | [phone] | Sinoatrial node | | | | | | dysfunction (HCC) | | | | | | with symptomatic | | | | | | bradycardia | +--------+ + + + + documented as of this encounter Visit Diagnoses Not on filedocumented in this encounter"
--- OUTSIDE RECORDS SUMMARY | ~2020-04-15 | XMS | Encounter Summary ---
Demographics + + + | Address | [address] | | | [place] [address] | + + + | Home Phone [...] Providers + +------+ + | Care Shipping Coordinator Name | Role | Phone | [...] loss | [address] | [address], | | | | | Anxiety | [address] [place] | [place] [address] | | | | | disorder, | [address] | [place], | | | | | unspecified | [place], [place] | [place] [address] | | | | | Chronic | [address] | Phone: | | | | | pain | Phone: | [phone] | | | | | syndrome | [phone] | Fax: | | | | | Procedures | Fax: | [phone] | | | | | office visit | [phone] | | +--------+--------+ + + + + Encounter Details +--------+---------+ + + + | Date | Type | Department | Care Team | Description | +--------+---------+ + + + | 12/26/ | Office | [facility] | Emmanuel Daniel MD | Functional diarrhea | | 2019 | Visit | GASTROENTEROLOGY | [address], [place] | (Primary Dx); | | | | [address] [place] | [address] [place], [place] | Gastrointestinal | | | | [address] [place], [place] | [address] | hemorrhage | | | | [address] | | associated with | | | | [phone] | | anorectal source; | | | [...] | | | | | | [place] [address] | | | | | | [phone] | | | | | | | | +--------+ + + + + | 05/01/ | Procedure | Cardiology | | | | 2019 | visit | | | | +--------+ + + + + | 05/01/ | Office | Cardiology | Silvia, | | | 2019 | Visit | | [address] | | | | | | [place], | | | | | | [place] [address] | | | | | | [phone] | | | | | | | | +--------+ + + + + | 05/21/ | Implant | Cardiology | Daljit Singletary, | Remote Device | | 2019 | Monitor | | [facility] | Interrogation | | | | | [place], | (Primary Dx); | | | | | [place] [address] | Pacemaker; | | | | | [phone] | Sinoatrial node | | | | [...]
--- OUTSIDE RECORDS SUMMARY | ~2020-04-15 | XMS | Encounter Summary ---
Demographics + + + | Address | [address] [place] [address] [address] | | | [place] [address] | + + + | Home Phone | | + + + | Preferred Language | Unknown | + + + | Marital Status | | + + + | Yarsanism Affiliation | Unknown | + + + | Race | White | + + + | Ethnic Group | Not or | + + + Author + + + | Author | [facility] | + + + | Organization | [facility] | + + + | Address | Unknown | + + + | Phone | Unavailable | + + + Support + + + + + | Name | Relationship | Address | Phone | + + + + + | Rachel Valencia | [address] | [place] | | | | | [address] | | + + + + + Care Team Providers + +------+ + | Care Footwear Sales Coordinator Name | Role | Phone | [...] | | | [address] | [facility] [place] | | | | | Mailcode: [place] | [address] | | | | | for Health and | [phone] | | | | | [facility] [address] | | | | | | [place], [place] | | | | | | [address] | | | | | | [phone] | | | +--------+ + + + [...]
--- OUTSIDE RECORDS SUMMARY | ~2020-04-15 | XMS | Encounter Summary ---
Demographics + + + | Address | [address] | | | [place] [address] | + + + | Home Phone [...] Team Providers + +------+ + | Care Gear Room Keeper Name | Role | Phone | + [...] Refill | | 2013 | | [facility] | DO [address] | | | | | [address] | [place] | | | | | [place] | [address] | | | | | [address] | | | | | | [phone] | | | +--------+--------+ + + + [...] W | | | | | | [place], | | | | | | [place] [address] | | | | | | [phone] | | | | | | | | +--------+ + + + + | 05/01/ | Procedure | Cardiology | | | | 2019 | visit | | | | +--------+ + + + + | 05/01/ | Office | Cardiology | Silvia, | | | 2019 | Visit | | [address] | | | | | | [place], | | | | | | [place] [address] | | | | | | [phone] | | | | | | | | +--------+ + + + + | 05/21/ | Implant | Cardiology | Daljit Singletary, | Remote Device | | 2019 | Monitor | | [address] [facility] | Interrogation | | | | | [place], | (Primary Dx); | | | | | [place] [address] | Pacemaker; | | | | | [phone] | Sinoatrial node | | | | | | dysfunction (HCC) | | | | | | with symptomatic | | | | | | bradycardia | +--------+ + + + + documented as of this encounter Visit Diagnoses Not on filedocumented in this encounter"
--- OUTSIDE RECORDS SUMMARY | ~2020-04-15 | XMS | Encounter Summary ---
Demographics + + + | Address | [address] | | | [place] [address] | + + + | Home Phone [...] Team Providers + +------+ + | Care Court Messenger Name | Role | Phone | + [...] | +--------+ + + + + | 05/16/ | Telephone | [facility] [place] | Emmanuel Daniel MD | Lab Order | | 2019 | | GASTROENTEROLOGY | [address] [place] | | | | | [address] [place] | [address] [place], [place] | | | | | [address] [place], [place] | [address] | | | | | [address] | | | | | | [phone] | | | +--------+ + + + [...] | | | | | | [place] [address] | | | | | | [phone] | | | | | | | | +--------+ + + + + | 05/01/ | Procedure | Cardiology | | | | 2019 | visit | | | | +--------+ + + + + | 05/01/ | Office | Cardiology | Silvia, | | | 2019 | Visit | | [place] [address] | | | | | | [place], | | | | | | [place] [address] | | | | | | [phone] | | | | | | | | +--------+ + + + + | 05/21/ | Implant | Cardiology | Daljit Singletary, | Remote Device | 2019 | Monitor | | MD [address] | Interrogation | | | | | [place], | (Primary Dx); | | | | | [place] [address] | Pacemaker; | | | | | [phone] | Sinoatrial node | | | | | | dysfunction (HCC) | | | | | | with symptomatic | | | | | | bradycardia | +--------+ + + + + documented as of this encounter Visit Diagnoses Not on filedocumented in this encounter"
--- OUTSIDE RECORDS SUMMARY | ~2020-04-15 | XMS | Encounter Summary ---
Demographics + + + | Address | [address] [place] [address] [address] | | | [place] [address] | + + + | Home Phone | | + + + | Preferred Language | Unknown | + + + | Marital Status | | + + + | Synagogue Affiliation | Unknown | + + + [...] [place] | | | | | [address] | | + + + + + Care Team Providers + +------+ + | Care Automotive Design Layout Drafter Name | Role | Phone | + [...] | | 2019 | | Center at [facility] [address] | Gastroenterology | Gastroenterology | | | | Kaylah Crane | | | | | | Mailcode: [place] | | | | | | [facility] and | | | | | | [place] [address] | | | | | | [place], [place] | | | | | | [address] | | | | | | [phone] | | | +--------+ + + + [...]
--- OUTSIDE RECORDS SUMMARY | ~2020-04-15 | XMS | Encounter Summary ---
Demographics + + + | Address | [address] | | | [place] [address] | + + + | Home Phone [...] Providers + +------+ + | Care Automobile Upholsterer Name | Role | Phone | + +------+ + | Kirk French MD | PCP | | + +------+ + Encounter Details +--------+ + + + + | Date | Type | Department | Care Team | Description | +--------+ + + + + | 06/19/ | Abstract | [facility] [place] | Geri Angel, | | | 2014 | | CARDIOLOGY [address] | PUBLIC SAFETY DIRECTOR [address] [place] | | | | | [place], | [place], [place] | | | | | [place] [address] | [address] | | | | | [phone] | | | +--------+ + + + [...] | | | | | | [place] [address] | | | | | | [phone] | | | | | | | [...] | | | | | | [place] [address] | | | | | | [phone] | | | | | | | | +--------+ + + + + | 05/21/ | Implant | Cardiology | Daljit Singletary, | Remote Device | | 2019 | Monitor | | [address] [place] | Interrogation | | | | | [place], | (Primary Dx); | | | | | [place] [address] | Pacemaker; | | | | | [phone] | Sinoatrial node | | | | | | dysfunction (HCC) | | | | | | with symptomatic | | | | | | bradycardia | +--------+ + + + + documented as of this encounter Visit Diagnoses Not on filedocumented in this encounter"
--- OUTSIDE RECORDS SUMMARY | ~2020-04-15 | XMS | Encounter Summary ---
Demographics + + + | Address | [address] [place] [address] [address] | | | [place] [address] | + + + | Home Phone | | + + + | Preferred Language | Unknown | + + + | Marital Status | | + + + | Yazidism Affiliation | Unknown | + + + [...] [place] | | | | | [address] | | + + + + + Care Team Providers + +------+ + | Care Bottom Polisher Name | Role | Phone | + [...] | | | | | Unintentiona | [address] | | | | | | l weight | Ave | | | | | | loss | [facility] [place] | | | | | | Abdominal | [address] | | | | | | cramping | Phone: | | | | | | Chronic | [phone] | | | | | | diarrhea | Fax: | | | | | | Rectal | [phone] | | | | | | bleeding [...] | | 2020 | | Center at [facility] [address] | [address] | | | | | [address] | [place], [place] | | | | | Mailcode: [place] | [address] | | | | | for Health and | [phone] | | | | | [facility], [address] | | | | | | [place], [place] | | | | | | [address] | | | | | | [phone] | | | +--------+ + + + [...]
--- OUTSIDE RECORDS SUMMARY | ~2020-04-15 | XMS | Encounter Summary ---
Demographics + + + | Address | [address] | | | [place] [address] | + + + | Home Phone [...] Team Providers + +------+ + | Care Warehouse Attendant Name | Role | Phone | + +------+ + | Kirk French MD | PCP | | + +------+ + Reason for Visit + + + | Reason | Comments | + + + | Appointment | Reschedule | + + + Encounter Details +--------+ + + + + | Date | Type | Department | Care Team | Description | +--------+ + + + + | 09/01/ | Telephone | [facility] | Silvia, | Appointment | | 2016 | | CARDIOLOGY [address] | PARISA Vernon [address] | (Reschedule) | | | | [place], | [place], | | | | | [place] [address] | [place] [address] | | | | | [phone] | [phone] | | | | | | | [...] W | | | | | | [place], | | | | | | [place] [address] | | | | | | [phone] | | | | | | | | +--------+ + + + + | 05/01/ | Procedure | Cardiology | | | | 2019 | visit | | | | +--------+ + + + + | 05/01/ | Office | Cardiology | Silvia, | | | 2019 | Visit | | PARISA Vernon [address] | | | | | | [place], | | | | | | [place] [address] | | | | | | [phone] | | | | | | | | +--------+ + + + + | 05/21/ | Implant | Cardiology | Daljit Singletary, | Remote Device | | 2019 | Monitor | | [address] [facility] | Interrogation | | | | | [place], | (Primary Dx); | | | | | [place] [address] | Pacemaker; | | | | | [phone] | Sinoatrial node | | | | | | dysfunction (HCC) | | | | | | with symptomatic | | | | | | bradycardia | +--------+ + + + + documented as of this encounter Visit Diagnoses Not on filedocumented in this encounter"
--- OUTSIDE RECORDS SUMMARY | ~2020-04-15 | XMS | Encounter Summary ---
Demographics + + + | Address | [address] | | | [place] [address] | + + + | Home Phone [...] Team Providers + +------+ + | Care B Operator Name | Role | Phone | [...] 2014 | | CARDIOLOGY [address] | REED OR WIND INSTRUMENT REPAIRER [address] [place] | | | | | [place], | [place], [place] | | | | | [place] [address] | [address] | | | | | [phone] | | | +--------+ + + + [...] W | | | | | | [place], | | | | | | [place] [address] | | | | | | [phone] | | | | | | | | +--------+ + + + + | 05/01/ | Procedure | Cardiology | | | | 2019 | visit | | | | +--------+ + + + + | 05/01/ | Office | Cardiology | Silvia, | | | 2019 | Visit | | PARISA Vernon [address] | | | | | | [place], | | | | | | [place] [address] | | | | | | [phone] | | | | | | | | +--------+ + + + + | 05/21/ | Implant | Cardiology | Daljit Singletary, | Remote Device | | 2019 | Monitor | | [address] [place] | Interrogation | | | | | [place], | (Primary Dx); | | | | | [place] [address] | Pacemaker; | | | | | [phone] | Sinoatrial node | | | | | | dysfunction (HCC) | | | | | | with symptomatic | | | | | | bradycardia | +--------+ + + + + documented as of this encounter Visit Diagnoses Not on filedocumented in this encounter"
--- OUTSIDE RECORDS SUMMARY | ~2020-04-15 | XMS | Encounter Summary ---
Demographics + + + | Address | [address] | | | [place] [address] | + + + | Home Phone [...] Team Providers + +------+ + | Care Monorail Car Operator Name | Role | Phone | [...] + + | Authorized | Specialty | Gastroenterol | Diagnoses | Manolo, | Juan | | | Services | ogy | Colon | Kirk Guidry | Gastroenterol | | | Required | | cancer | MD Eva PAULINO | ogy [address] | | | | | screening | [address] | BLVD | | | | | Diarrhea/ | [address] | [place], [place] | | | | | Rectal | [place] | [address] | | | | | Bleeding | [address] | Phone: | | | | | from [facility] | Phone: | [phone] | | | | | referral. | [phone] | Fax: | | | | | | Fax: | [phone] | | | | | | [phone] | | + + + + + + + Reason for Visit +--------+ + | Reason | Comments | +--------+ + | Other | wanted to let us know the [facility] cancelled his appointment | | | for a colonoscopy | +--------+ + Encounter Details +--------+ + + + + | Date | Type | Department | Care Team | Description | +--------+ + + + + | 01/21/ | Telephone | [facility] | Kirk French | Other (wanted to let | | 2019 | | [facility] | MD Brea [address] | us know the St[address] | | | | [facility] [address] | Apolonia'gena cancelled his | | | | [address] | [place] [address] | appointment for a | | | | [place], [place] | [phone] | colonoscopy) | | | | [address] | | | | | | [phone] | | | +--------+ + + + [...] | | | | | | [place] [address] | | | | | | [phone] | | | | | | | | +--------+ + + + + | 05/01/ | Procedure | Cardiology | | | | 2019 | visit | | | | +--------+ + + + + | 05/01/ | Office | Cardiology | Silvia, | | | 2019 | Visit | | PARISA Vernon W | | | | | | [place], | | | | | | [place] [address] | | | | | | [phone] | | | | | | | | +--------+ + + + + | 05/21/ | Implant | Cardiology | Daljit Singletary, | Remote Device | | 2019 | Monitor | | MD Sim [place] | Interrogation | | | | | [place], | (Primary Dx); | | | | | [place] [address] | Pacemaker; | | | | | [phone] | Sinoatrial node | | | | [...] Ambulatory Referral | Outpatient | Routin | Colon cancer | Ordered: 01/22/2020 | | to Stalin | Referral | e | screening | | | Gastroenterology | | | | | + + +--------+ + + documented as of this encounter Visit Diagnoses + + | Diagnosis | + + | Colon cancer screening - Primary Special screening for malignant neoplasms, colon | + + documented in this encounter"
--- OUTSIDE RECORDS SUMMARY | ~2020-04-15 | XMS | Encounter Summary ---
Demographics + + + | Address | [address] | | | [place] [address] | + + + | Home Phone [...] Team Providers + +------+ + | Care Registered Phlebotomist Part Time Name | Role | Phone | + [...] | | | | | | [place], [place] | [place], [place] | | | | | | [address] | [address] Phone: | | | | | | Phone: | [phone] | | | | | | [phone] | Fax: | | | | | | Fax: | [phone] | | | | | | [phone] | | +--------+ + + + + + Reason for Visit + + + | Reason | Comments | + + + | Medicare Wellness | | + + + Encounter Details +--------+---------+ + + + | Date | Type | Department | Care Team | Description | +--------+---------+ + + + | 07/25/ | Office | [facility] | Michael Amanda, | Preventative health | | 2014 | Visit | [facility] [place] | DO [address] | care (Primary Dx); | | | | [address] | [place] | Cannabis abuse, | | | | [place] | [address] | daily use; Urinary | | | | [address] | | frequency; | | | | [phone] | | Incontinence; | | | | [...] this encounter Patient Instructions Patient Instructions Michael Amanda DO - 07/31/2014 3:16 PM PDTFormatting of this [...] might be different fro m the original. . MEDICARE WELLNESS VISIT : [...] use: History Alcohol Use No . Moe dumont has limited mobility and can not participate [...] needed for Chest pain. 25 tablet 12 [place]-3 Fatty Acids (SALMON OIL-1000 PO) CAPS, one capsule by mouth daily twice daily ONE TOUCH DELICA LANCETS [facility] Check glucose as needed for [...] as Nurse Practitioner (Cardiology) FENG Chou (Physician Community Center Worker) Current Medicare Suppliers: [facility] - [place], [place] - [address] [place] [address] [facility] - [place] - [address] [place] [address] HEALTH RISK ASSESSMENT: : The patient or [...] following health maintenance items are reviewed in [facility] and correct as of today: Health Maintenance [...] no kevin in the usual sections in [employer] documented in this en counter Plan of Treatment +--------+ + + + + | Date | Type | Specialty | Care Team | Description | +--------+ + + + + | 05/01/ | Appointment | Radiology | Silvia, | | | 2019 | | | PARISA Vernon [address] | | | | | | [place], | | | | | | [place] [address] | | | | | | [phone] | | | | | | | | +--------+ + + + + | 05/01/ | Procedure | Cardiology | | | | 2019 | visit | | | | +--------+ + + + + | 05/01/ | Office | Cardiology | Silvia, | | | 2019 | Visit | | PARISA Vernon [address] | | | | | | [place], | | | | | | [place] [address] | | | | | | [phone] | | | | | | | | +--------+ + + + + | 05/21/ | Implant | Cardiology | Daljit Singletary, | Remote Device | 2019 | Monitor | | MD Sim [place] | Interrogation | | | | | [place], | (Primary Dx); | | | | | [place] [address] | Pacemaker; | | | | | [phone] | Sinoatrial node | | | | [...] Primary Routine general medical examination at a [facility] | | care facility | + [...]
--- OUTSIDE RECORDS SUMMARY | ~2020-04-15 | XMS | Encounter Summary ---
Demographics + + + | Address | [address] | | | [place] [address] | + + + | Home Phone [...] Team Providers + +------+ + | Care Chemical Plant Manager Name | Role | Phone | [...] | Telephone | [facility] [place] | [place], | LABS | | 2019 | | CARDIOLOGY [address] | Janeen LIFELINE REPRESENTATIVES [address] | | | | | [place], | [place], | | | | | [place] [address] | [place] [address] | | | | | [phone] | [phone] | | | | | | | [...] | | | | | | [place] [address] | | | | | | [phone] | | | | | | | [...] | | | | | | [place] [address] | | | | | | [phone] | | | | | | | | +--------+ + + + + | 05/21/ | Implant | Cardiology | Daljit Singletary, | Remote Device | | 2019 | Monitor | | [address] [place] | Interrogation | | | | | [place], | (Primary Dx); | | | | | [place] [address] | Pacemaker; | | | | | [phone] | Sinoatrial node | | | | [...]
--- OUTSIDE RECORDS SUMMARY | ~2020-04-15 | XMS | Encounter Summary ---
Demographics + + + | Address | [address] | | | [place] [address] | + + + | Home Phone [...] Team Providers + +------+ + | Care Pie Filler Name | Role | Phone | + +------+ + PCP | Unavailable | + +------+ + Encounter Details +--------+ + + + + | Date | Type | Department | Care Team | Description | +--------+ + + + + | 10/19/ | Hospital | [facility] | | | | 1992 | Encounter | [facility] | | | | | | CENTER [address] | | | | | | [place] | | | | | | [address] | | | | | | [phone] | | | +--------+ + + + [...] | | | | | | [place] [address] | | | | | | [phone] | | | | | | | | +--------+ + + + + | 05/01/ | Procedure | Cardiology | | | | 2019 | visit | | | | +--------+ + + + + | 05/01/ | Office | Cardiology | Silvia, | | | 2019 | Visit | | PARISA [address] | | | | | | [place], | | | | | | [place] [address] | | | | | | [phone] | | | | | | | | +--------+ + + + + | 05/21/ | Implant | Cardiology | Daljit Singletary, | Remote Device | 2019 | Monitor | | [address] [place] [place] | Interrogation | | | | | [place], | (Primary Dx); | | | | | [place] [address] | Pacemaker; | | | | | [phone] | Sinoatrial node | | | | | | dysfunction (HCC) | | | | | | with symptomatic | | | | | | bradycardia | +--------+ + + + + documented as of this encounter Visit Diagnoses Not on filedocumented in this encounter"
--- OUTSIDE RECORDS SUMMARY | ~2020-04-15 | XMS | Encounter Summary ---
Demographics + + + | Address | [address] | | | [place] [address] | + + + | Home Phone [...] Team Providers + +------+ + | Care Gage Maker Name | Role | Phone | [...] + + | 01/01/ | Telephone | [facility] | Kirk French | Other (Pacemaker) | | 2020 | | [facility] | MD Bre[address] | | | | | [facility] [address] | [address] | | | | | [address] | [place] [address] | | | | | [place], [place] | [phone] | | | | | [address] | | | | | | [phone] | | | +--------+ + + + [...] [place], | | | | | | [place] [address] | | | | | | [phone] | | | | | | | | +--------+ + + + + | 05/01/ | Procedure | Cardiology | | | | 2019 | visit | | | | +--------+ + + + + | 05/01/ | Office | Cardiology | Silvia, | | | 2019 | Visit | | [address] | | | | | | [place], | | | | | | [place] [address] | | | | | | [phone] | | | | | | | | +--------+ + + + + | 05/21/ | Implant | Cardiology | Daljit Singletary, | Remote Device | 2019 | Monitor | | [address] | Interrogation | | | | | [place], | (Primary Dx); | | | | | [place] [address] | Pacemaker; | | | | | [phone] | Sinoatrial node | | | | | | dysfunction (HCC) | | | | | | with symptomatic | | | | | | bradycardia | +--------+ + + + + documented as of this encounter Visit Diagnoses Not on filedocumented in this encounter"
--- OUTSIDE RECORDS SUMMARY | ~2020-04-15 | XMS | Encounter Summary ---
Demographics + + + | Address | [address] | | | [place] [address] | + + + | Home Phone [...] Team Providers + +------+ + | Care Hardboard Press Operator Name | Role | Phone [...] Refill | | 2013 | | [facility] | DO [address] | | | | | [address] | [place] | | | | | [place] | [address] | | | | | [address] | | | | | | [phone] | | | +--------+--------+ + + + [...] W | | | | | | [place], | | | | | | [place] [address] | | | | | | [phone] | | | | | | | | +--------+ + + + + | 05/01/ | Procedure | Cardiology | | | | 2019 | visit | | | | +--------+ + + + + | 05/01/ | Office | Cardiology | Silvia, | | | 2019 | Visit | | [address] | | | | | | [place], | | | | | | [place] [address] | | | | | | [phone] | | | | | | | | +--------+ + + + + | 05/21/ | Implant | Cardiology | Daljit Singletary, | Remote Device | | 2019 | Monitor | | [facility] | Interrogation | | | | | [place], | (Primary Dx); | | | | | [place] [address] | Pacemaker; | | | | | [phone] | Sinoatrial node | | | | | | dysfunction (HCC) | | | | | | with symptomatic | | | | | | bradycardia | +--------+ + + + + documented as of this encounter Visit Diagnoses Not on filedocumented in this encounter"
--- OUTSIDE RECORDS SUMMARY | ~2020-04-15 | XMS | Encounter Summary ---
Demographics + + + | Address | [address] | | | [place] [address] | + + + | Home Phone [...] Providers + +------+ + | Care Computer Meteorologist Name | Role | Phone | + +------+ + PCP | Unavailable | + +------+ + Encounter Details +--------+ + + + + | Date | Type | Department | Care Team | Description | +--------+ + + + + | 06/12/ | [facility] | [facility] | Hunter Antunez, | | | 2007 - | Encounter | MED CTR ICU [address] | MD [address] | | | | | [place], | [place] | | | 06/15/ | | [place] [address] | [address] | | | 2007 | | [phone] | | | +--------+ + + + [...] W | | | | | | [place], | | | | | | [place] [address] | | | | | | [phone] | | | | | | | | +--------+ + + + + | 05/01/ | Procedure | Cardiology | | | | 2019 | visit | | | | +--------+ + + + + | 05/01/ | Office | Cardiology | Silvia | | | 2019 | Visit | | [address] W | | | | | | [place], | | | | | | [place] [address] | | | | | | [phone] | | | | | | | | +--------+ + + + + | 05/21/ | Implant | Cardiology | Daljit Singletary, | Remote Device | 2019 | Monitor | | MD [facility] [place] | Interrogation | | | | | [place], | (Primary Dx); | | | | | [place] [address] | Pacemaker; | | | | | [phone] | Sinoatrial node | | | | | | dysfunction (HCC) | | | | | | with symptomatic | | | | | | bradycardia | +--------+ + + + + documented as of this encounter Visit Diagnoses Not on filedocumented in this encounter"
--- OUTSIDE RECORDS SUMMARY | ~2020-04-15 | XMS | Encounter Summary ---
Demographics + + + | Address | [address] [place] [address] [address] | | | [place] [address] | + + + | Home Phone [...] Author | [facility] | + + + | Organization | [facility] | + + + | Address | Unknown | + + + | Phone | Unavailable | + + + Support + + + + + | Name | Relationship | Address | Phone | + + + + + | Rachel Valencia | [address]IE[address] | [place] | | | | | [address] | | + + + + + Care Team Providers + +------+ + | Care Cutting Pressman Name | Role | Phone | + +------+ + | Darion Holden DO | PCP | | + +------+ + Reason for Visit + + + | Reason | Comments | + + + | Refill Request | | + + + Encounter Details +--------+ + + + + | Date | Type | Department | Care Team | Description | +--------+ + + + + | 10/26/ | Telephone | Digestive Health | Bridgette Riso, | Refill Request | | 2019 | | Center at [facility] [address] | MD [address] | | | | | [address] | [facility] [place] | | | | | Mailcode: [place] | [address] | | | | | for Health and | [phone] | | | | | [facility] [address] | | | | | | [facility] [place] | | | | | | [address] | | | | | | [phone] | | | +--------+ + + + [...] Diarrhea, unspecified type | + + | Abdominal cramping Abdominal pain, unspecified site | + + documented in this encounter"
--- OUTSIDE RECORDS SUMMARY | ~2020-04-15 | XMS | Clinical Summary ---
Demographics + + + | Address | [address] | | | [place] [address] | + + + | Home Phone | | + + + | Preferred Language | Unknown | + + + | Marital Status | | + + + | Shinto Affiliation | 1013 | + + + | Race | Unknown | + + + | Ethnic Group | Unknown | + + + Author + + + | Author | [facility] (Historical as of | | | 07-08-19) | + + + | Organization | [facility] (Historical as of | | | 07-08-19) [...] Team Providers + +------+ + | Care Pitting Machine Operator Name | Role | Phone [...] Cannabis abuse | | + + + Immunizations + + + + | Name [...] + | AUTO INSURANCE | AUTO | [id number] | | | | | | INSURA | | | | | | | NCE | | | | | | | GENERI | | | | | | | C | | | | | + +--------+ +------+-------+ + | AUTO INSURANCE | AUTO | [id number] | | | | | | INSURA | [id number] | | | | | | NCE | | | | | | | GENERI | | | | | | | C | | | | | + +--------+ +------+-------+ + | MEDICARE | MEDICA | [id number] | | | [address] | | | RE | | | | [place], [place] [address] | | | IP-OP | | | | | + +--------+ +------+-------+ + | [facility] | [place] | [phone] | | | | | | | [...] | Self | [birth year] | Home: | [address] | | | al/Fam | | 9 | [address]- | [address] [place], [place] | | | roxanne | | | [address] | [address] | + +--------+ +--------+ + + | AMILCAR GAY | Third | Self | [birth year] | Home: | [address] | | | [employer] | | 9 | +- | [place], [place] | | | Liabil | | | [phone] | [phone] | | | ity | | | | | + +--------+ +--------+ + + | AMILCAR GAY | Third | Self | [birth year] | Home: | [address] | | | [employer] | | 1960 | +- | [place], [place] | | | Liabil | | | [phone] | [phone] | | | ity | | | | | + +--------+ +--------+ + +
--- OUTSIDE RECORDS SUMMARY | ~2020-04-15 | XMS | Encounter Summary ---
Demographics + + + | Address | [address] | | | [place] [address] | + + + | Home Phone [...] Providers + +------+ + | Care Principal Software Architect Name | Role | Phone | + +------+ + | Kirk French MD | PCP | | + +------+ + Reason for Visit + + + | Reason | Comments | + + + | Urinary Frequency | | + + + Evaluate & Treat (Routine) +--------+ + + + + + | Status | Reason | Specialty | Diagnoses / | Referred By | Referred To | | | | | Procedures | Contact | Contact | +--------+ + + + + + | Closed | Specialty | Urology | Diagnoses | Vasiliy, | Shweta, | | | Services | | Urinary | Michael Cole DO | Miguel Cr MD | | | Required | | frequency | [address] | [address] | | | | | Incontinence | [address] [place] | [place] | | | | | | [place] | [place] | | | | | | [address] | [address] Phone: | | | | | | Phone: | [phone] | | | | | | [phone] | Fax: | | | | | | Fax: | [phone] | | | | | | [phone] | | +--------+ + + + + + Encounter Details +--------+---------+ + + + | Date | Type | Department | Care Team | Description | +--------+---------+ + + + | 12/04/ | Office | [facility] | Miguel Rock, | Nocturnal and | | 2015 | Visit | [address] | MD [address] | diurnal enuresis | | | | [place], [place] | [place], [place] | (Primary Dx); BPH | | | | [address] | [id number] | with | | | | [phone] | | obstruction/lower | | | | | | urinary tract | | | | | | symptoms; Nocturia; | | | | | | Obstructive sleep | | | | | | apnea; History of | | | | | | urinary incontinence | +--------+---------+ + + + Social History [...] + + + | Blood Pressure | 104/78 | 12/04/2014 2:16 PM | | | | | PST | | + + + + + | Pulse | 76 | 12/04/2014 2:16 PM | | | | | PST | | + + + + + | Temperature | - | - | | + + + + + | Respiratory Rate | 16 | 12/04/2014 2:16 PM | | | | | PST [...] Height | 193 cm (6' 4") | 12/04/2014 2:16 PM | | | | | PST | | + + + + + | Body Mass Index | - | - | | + + + + + documented in this encounter Progress Notes Miguel Rock MD - 12/04/2014 2:15 PM PSTFormatting of this note might be different fro m the original. Moe is a 54 y.o. male patient of Kirk French being seen today for nocturnal e nuresis. Amilcar reports that over the course of the past 1-2 years he has had gradual worsening of uri nary urgency and frequency and urge incontinence. This occurs both day and night. He has n octuria x4. He frequently cannot get to the bathroom in time at night time when he arises t o void. Sometimes he'll awake at night wet. During the daytime he will frequently have steven den onset of urgency, and it is very difficult to postpone voiding. He has undergone a previous trial of therapy with Detrol, but he quit using it due to the s aliya effects of dry mouth. However, he's not certain how much improvement it produced in his urinary symptoms. Paragraph he denies any dysuria or hematuria. He denies any urinary tra ct infections. He denies any renal colic. He denies any changes in his bowel habits. He reports a bowel movement on a daily basis. He denies any hematochezia or melena or constipation. He denies any fecal incontinence. He does not drink coffee. He drinks 2 glasses of tea per day. He does not drink soda. He states he drinks alcohol perhaps once or twice a year. He denies polydipsia or excessive t ben. He denies polyphagia. He states that he has been using the supplement Super Beta Prostate, and has been noticing improvement in his urinary symptoms. He states that he snores at night time. He has history of sleep apnea. He states that he has a CPAP device, but he has not used it in maybe one year. He tells that he has had prior history of stroke. He does not recall when that occurred. He has chronic neck and back pain. He states he has undergone 6 spine fusion surgeries. Haleigh rodarte states that the surgeon in [place] who performed his neck surgery is no longer practicing a nd was apparently disciplined and had his license revoked by the [facility]. He has us ed marijuana for his chronic pain. He reports neuropathy in both feet. He states he has numbness in his hands every morning. He denies saddle paresthesias. He tells me that in the remote past, he had an episode of urinary retention when he is usin g a lot of narcotics, which was evaluated with urodynamics by Dr. Mariama Nunes. He does not know the results of these tests, but his urinary retention issues resolved after stopping n arcotic use. He has erectile dysfunction. He denies any claudication symptoms. He denies any groin santosh n or swelling. He denies any testicular pain. He has low energy, numbness and tingling in the extremities, headaches, fatigue, nausea, pa in or swelling, chest pain, rapid heart rate, high blood pressure, neck pain, joint pain, ba ck pain, bony pain, shortness of breath, otherwise, 10 point review of systems today is nega tive. Over 45 minute encounter with Amilcar today, over 50% of this time spent counseling regarding his urinary incontinence and nocturia and mild prostate hypertrophy and significance of fami ly history of prostate cancer in need for urodynamics to confirm my suspicion of neurogenic bladder, and treatment options available. 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); HTN (hypertension); Hypercholesterolemia; Bipolar 1 disorder (HCC); In somnia; Chronic neck pain; Depression; Hyperlipidemia; BIPOLAR DISORDER UNSPECIFIED; Anxiety depression; Tobacco user; Hypertension; Nondependent opioid abuse in remission; CAD; Fibrom yalgia; Lumbago; Chronic pain syndrome; Thrombocytopenia (HCC) (08/26/2010); Fatigue ( 010); Abdominal pain, unspecified site (07/17/2011); Neck pain, chronic (09/24/2011); Syncope (10/09/2010); Obstructive sleep apnea (08/26/2010); 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 Past Surgical History He has past surgical history that includes knee surgery (2003); laminectomy (1991); lumbar discectomy (1991); Appendectomy (2005); sinus surgery (1997); lumbar fusion (01/2011); pacema ker placement (06/14/09); neck fusion (08/10/2012); Ablation (04/03/13); shoulder surgery (12/04); Cardiac catheterization (12/25/13); Stomach surgery; Vasectomy; and Neck surgery. Family History: His family history includes Cancer in his father. Social History: He reports that he quit smoking about 5 years ago. His smoking use included Cigars. He has never used smokeless tobacco. He reports that he does not drink alcohol or use illicit drugs . Allergies Allergen Reactions Alcohol-Fentanyl Clarithromycin Duloxetine Hydrocodone Penicillins Tramadol Hcl Medications: Outpatient Encounter Prescriptions as of 12/04/2014 Medication Sig Dispense Refill 5-Hydroxytryptophan (5-HTP) 100 MG CAPS Take by mouth 2 (two) times daily. amLODIPine (NORVASC) 5 mg tablet take 2 tablets by mouth once daily 60 tablet 6 Ascorbic Acid (VITAMIN C) 1000 MG tablet Take 1,000 mg by mouth Daily. aspirin 81 MG tablet Take 81 mg by mouth Daily. cholecalciferoL (VITAMIN D-3) 1,000 units CAPS capsule Take by mouth. clonidine (CATAPRES) 0.2 MG tablet Take 1 tablet by mouth 3 times daily. 90 tablet 4 diphenhydrAMINE (BENADRYL) 25 MG capsule Take 25 mg by mouth as needed. dronabinol (MARINOL) 10 MG capsule Take 10 mg by mouth 2 times daily (before meals). EMMA VELÁSQUEZ 550 MG CAPS Take by mouth. LORazepam (ATIVAN) 1 mg tablet 1/2 to 1 tab up to three times per day prn 20 tablet 0 MELATONIN TABS, at bedtime as needed [...] needed for Chest pain. 25 tablet 12 [place]-3 Fatty Acids (SALMON OIL-1000 PO) CAPS, one capsule by mouth daily twice daily ONE TOUCH DELICA LANCETS [facility] Check glucose as needed for hypoglycemia 100 [...] by mouth once daily 90 tablet 1 REVIEW OF SYSTEMS: [] All Negative Constitutional Symptoms: []Fever []Chills [x]Headache [x]Change in appetite, weight, energy []Other: Neurological: []Tremors []Dizzy Spells [x]Numbness/Tingling []Seizures []Other: Endocrine: []Excessive thirst []Too hot/cold [x]Tired/Sluggish Gastrointestinal: []Abdominal pain [x]Nausea/vomiting []Indigestion/heartburn []Change in stool size or shape or color [x]Pain with swallowing []Other: Cardiovascular: [x]Chest Pain [x]Rapid heart rate [x]High blood pressure [x]Other: Integumentary: []Skin rash []Boils []Persistent itch []Other: Musculoskeletal: [x]Neck Pain [x]Joint swelling/pain [x]Back pain [x]Bone pain [x]Other: Respiratory: []Wheezing []Frequent cough [x]Shortness of breath []Other: Hematologic/Lymphatic: []Swollen glands []Blood clotting problems []Prior blood transfusions []Other: Psychologic: Are you generally satisfied with your life? yes Do you feel severely depressed? no Have you considered suicide? no Other: Habits: Do you smoke? no [x] Yes [] No Patient advised to follow up with PCP regarding positive review of syste ms. AUA BPH SYMPTOM SCORE Not at all Less than 1 times in 5 Less than half the time About half the time More than half the time Almost always INCOMPLETE EMPTYING Over the past month, how often have you had the sensation of not empty ing your bladder completely after you finished urinating? [] 0 [] 1 [] 2 [] 3 [] 4 [x] 5 FREQUENCY Over the past month, how often have you had to urinate again less than 2 hours a fter you finished urinating? [] 0 [] 1 [] 2 [x] 3 [] 4 [] 5 INTERMITTENCY Over the past month, how often have you found you stopped and started again several times when you urinated? [] 0 [] 1 [] 2 [] 3 [x] 4 [] 5 URGE TO URINATE Over the past month, how often have you found it difficult to postpone uri nation? [] 0 [] 1 [] 2 [] 3 [] 4 [x] 5 WEAK STREAM Over the past month, how often have you had a weak urinary stream? [] 0 [x] 1 [] 2 [] 3 [] 4 [] 5 STRAINING Over the past month, how often have you had to push or strain to begin urination ? [] 0 [] 1 [x] 2 [] 3 [] 4 [] 5 None 1 time 2 times 3 times 4 times 5 or more times URINATING AT NIGHT Over the past month, how many times did you most typically get up to ur inated from the time you went to bed at night until the time you got up in the morning? [] 0 [] 1 [] 2 [] 3 [x] 4 [] 5 Symptom Score: Mild 1-7, Moderate 8-19, Severe 20-35 TOTAL: 24 BOTHER SCORE DUE TO URINARY SYMPTOMS Delighted Pleased Mostly Satisfied Mixed Mostly dissatisfied Unhappy Terrible BOTHERSOMENESS OF URINARY SYMPTOMS How would you feel if you had to live with your urinary condition the way it is now, no better, no worse, for the rest of your life? [] 0 [] 1 [] 2 [] 3 [x] 4 [] 5 [] 6 PHYSICAL EXAM Vitals: BP 104/78 | Pulse 76 | Resp 16 | Ht 1.93 m (6' 4") General: Awake, alert, in no acute distress. Speech is fluent. Appears to be stated age. Neck: Supple; no lymphadenopathy. Lungs: Normal respiratory effort, no wheezing, no stridor, no tachypnea. Chest: No rib or bony tenderness. Back: No CVA tenderness. Well-healed scars over the cervical spine and lumbar spine maryam on. Abdomen: Soft, nontender, no hepatosplenomegaly. No masses. Large, well-healed scar in th e midline. No guarding; benign. Bladder nondistended. No flank mass. No flank tenderness. Extremities: Non-edematous. Hips and long bones nontender to fist percussion. Neuro: Awake, alert, oriented x3. Normal station and gait. Bulbocavernosus reflex is abs ent. Good motor strength in the lower extremities. Perianal sensation is intact. Psychiatric: Mood and affect are normal. Normal judgment. Skin: Warm and dry, no erythematous rash. Groin: No lymphadenopathy. No right inguinal hernia, but there is bulging with Valsalva i n the left inguinal canal, consistent with a left inguinal hernia. Genitalia: Penis is circumcised. No lesion. Normal in appearance. Urethral meatus is no rmal in caliber. Scrotum is supple and nonerythematous. Scrotal contents are benign. Mild induration of the convoluted portion of the vas deferens and epididymis bilaterally, consis tent with prior vasectomy history. Rectal: No mass, normal sphincter tone. Prostate gland is palpably benign. Prostate gland is mildly enlarged. Prostate gland volume is estimated at 25 gm. Lateral sulci are intact. Seminal vesicles are not palpably enlarged and are nontender. There is no prostatic indur ation, nodularity, irregularity, or asymmetry. DIAGNOSTIC DATA: Bladder residual today is estimated at <40 cc. AUA symptom score is 24. Urinalysis today is negative. There is no glucose, no blood, no nitrites, no leukocytes. Lab Results Component Value Date CREA 0.89 05/26/2014 BUN 14 07/26/2014 NA 138 07/26/2014 K 3.7 07/26/2014 CL 105 07/26/2014 CO2 24 07/26/2014 Lab Results Component Value Date ALT 29 07/26/2014 AST 32 07/26/2014 ALKPHOS 53 07/26/2014 BILITOT 1.0 07/26/2014 Lab Results Component Value Date WBC 6.2 07/26/2014 HGB 16.8* 07/26/2014 HCT 48.7 07/26/2014 MCV 98.4 07/26/2014 PLT 163 07/26/2014 CT CERVICAL SPINE WITHOUT CONTRAST: 06/18/2014 2:23 PM CLINICAL HISTORY: SHOULDER PAIN NECK PAIN COMPARISON:CT cervical spine 04/22/2012 TECHNIQUE: Axial images are obtained from skull base to lung apices. These are reviewed in axial, sagittal and coronal reformations. FINDINGS:Stable C5-C6 fusion with ankylosis across the disc interspace. Also fusion changes at C6-C7 with no visible disc interspace and a high density bony graft in the interspace. Partial corpectomies of C6 and C7. Anterior compression plate is buckled anteriorly, similar to prior. In the interval since prior exam, bilateral posterior pedicle screw and paris fixation has been placed from C6 to T1. Focal accentuation of the normal cervical lordosis at C6-C7 with no focal loss of alignment. This alignment is stable when compared to prior. Other vertebral body heights are normally maintained. No fracture. Aside from the surgical levels, little degenerative change. No bony central canal stenosis or foraminal narrowing. No adjacent soft tissue abnormality. IMPRESSION - 1. Stable C5-C6 fusion. 2. C6-C7 fusion with buckling of the anterior compression plate and focal increased lordosis. In the interval since prior 2011 exam, posterior pedicle screw and paris fixation has been placed from C6 to T1. Otherwise no change from prior. No bony central canal or foraminal encroachment. Dictated and Signed by: Francesco Solis MD Electronically signed: 06/18/2014 3:[address] MYELOGRAM CLINICAL HISTORY: BACK PAIN. TECHNIQUE: Axial images were obtained from C7 to L2. These are reviewed in sagittal, axia l, and cor onal reformations. FINDINGS: Alignment of the thoracic spine is normal. Vertebral body heights are normally maintained at each level. No fracture or compression deformity is seen and no destructive lesions of bone are noted. The thecal sac is well opacified with myelographic contrast material. Generally th e thoracic canal has a normal caliber. Minimal indentation of the thecal sac is present posteriorly at T3-4, T 5-6, and T7-8. This is secondary to broad-based disk bulges at these levels. As mentioned , these ar e minimal, the largest at T5-6 measuring 3 mm. Little in the way of bony degenerative de dios ges are pr esent with no significant osteophyte formation or facet degenerative change. The thoracic cord has n ormal caliber throughout with normal appearing conus at the L1-2 level. Pacemaker leads ar e present in the heart. No other adjacent soft tissue abnormalities are present. IMPRESSION: 1. CT MYELOGRAM OF THE THORACIC SPINE WITHIN NORMAL RANGE FOR AGE. PLEASE SEE DETAILS ABOV E. Dictated Date/Time: 04/22/2012 16:56 Transcribed Date/Time: 04/22/2012 17:32 Labor Custodian: <Electronically Signed by Jama Solis MD> 04/23/[address] MYELOGRAM LUMBAR SPINE, 04/22/2012 CLINICAL HISTORY: CHRONIC BACK PAIN. HISTORY OF L5-S1 FUSION. TECHNIQUE: Axial images are obtained from T12 to S2. These are reviewed in sagittal, axial and rodríguez l reformations. COMPARISON: Cervical and thoracic CT myelogram performed this date. FINDINGS: Counting from C7 down, five lumbar vertebral bodies are designated, although the re is part ial lumbarization of S1 with a well-defined disk interspace at S1-2 and well-developed singh sverse pro cesses on S1. A posterior pedicle screw and paris fixation is present across L5-S1. Interbody bone meaghan t is seen in the interspace. Endplate sclerotic changes are present. There is some erosion of the spa cer into the inferior endplate of L5 with decrease in the L5-S1 interspace. Alignment of th e spine is maintained throughout. Vertebral body heights are also normal with no fracture or destruct rudolph change . No adjacent soft tissue abnormalities are present. The CSF in the thecal sac is well opac ified. Lev el by level analysis of the axial images follows. L1-2: The conus terminates at this level. Central canal is capacious with no neural foramin al encroac hment. L2-3: Mild facet degenerative changes with no central canal or foraminal encroachment. L3-4: Minimal broad-based disk bulge. Mild facet degenerative change with mild ligamentum f lavum hype rtrophy. No significant central canal or foraminal encroachment. L4-5: Moderate facet degenerative changes with mild ligamentum flavum thickening. This prod uces a mil d central canal stenosis. Only a mild broad-based disk bulge is present but because of the facet de dios ges, this results in mild encroachment at the subarticular level bilaterally. L5-S1: This is the surgical level described above. No central canal or foraminal stenosis i s present. IMPRESSION: 1. POSTOP L5-S1 FUSION(SEE LEVEL DESIGNATION DISCUSSION ABOVE). 2. MILD MULTILEVEL FACET DEGENERATIVE CHANGES. NO AREAS OF NEURAL ENCROACHMENT ARE IDENTIFI ED. Dictated Date/Time: 04/23/2012 10:54 Transcribed Date/Time: 04/23/2012 11:06 Labor Custodian: <Electronically Signed by Jama Solis MD> 04/24/12 9124 IMPRESSION: 1. Nocturnal and diurnal enuresis. I am suspicious of a neurogenic bladder. Risk factors of prior stroke and cervical spine surgery. 2. BPH with lower urinary tract symptoms. 3. Foot neuropathy. 4. Sleep apnea. 5. Nocturia. Sleep apnea may be the most important contributing factor. 6. Left inguinal hernia. 7. Urinary urgency and frequency. 8. History of stroke. Moe reports that he has had a stroke in the past. 9. History of cervical spine fusion 2011 with revision surgery. 10. Lumbar radiculopathy. History of lumbar discectomy 1991 and lumbar spine fusion 2010. 11. Erectile dysfunction. His bulbocavernosus reflex is absent. 12. Family history of prostate cancer. 13. Family history of colon cancer. PLAN: I told Amilcar that I am very suspicious that he has a neurogenic bladder producing his sympto ms. He quit using Detrol secondary to side effects of dry mouth. He does not wish to under go another trial of anticholinergics. I advised Amilcar that he should undergo urodynamic studies. He states that he underwent urod ynamics many years ago with Dr. Mariama Nunes when he had an episode of urinary retention fol lowing administration of narcotics. He declines opportunity for urodynamics at this time. Given my suspicion for a neurogenic bladder, still believe that the recommendations from [facility] neurosurgeon, Dr. Demarco, on 03/13/2014 would still apply, namely a CT myelogram of the cervic al/thoracic/lumbar spine region. If Moe desires, this can be ordered by his primary c are provider. Otherwise, neurology consultation would be entertained. He states his urinary symptoms are better with Super-Beta Prostate formula. If indeed his symptoms have improved with this regimen, I told him that he might respond favorably to alph a blockers. I will place him on a trial of Rapaflo 8 mg by mouth daily. We discussed potential side ef fects of this medication as listed in epocrates. I asked him to call the office in 3 weeks to let me know how he is progressing with his regimen. If symptoms have not improved, I francesca d him I would once again recommend urodynamic studies. Alternatively, he could undergo a tr ial of therapy with Myrbetriq. If urinary symptoms persist, a voiding diary may also be of benefit. We discussed his left inguinal hernia. If he experiences pain or discomfort or swelling in the groin, he is advised to see his PCP. We discussed the significance of his family history of prostate cancer. We discussed the c ontroversy associated with prostate cancer screening. I recommended that he undergo annual digital rectal examination and PSA testing with his primary care provider. We discussed the recommendations of the USPSTF which contradict my recommendations. I encouraged him to followup with Dr. Mckeon regarding his sleep disturbance and resume usin g his CPAP. We discussed how sleep apnea could produce nocturia. Moe is instructed to resume his usual and customary care with his primary care provid er. I asked Moe to notify me if there were any difficulties voiding, or UTI symptoms, or flank pain, or for any questions or concerns whatsoever. This document was generated in part using voice recognition software. Although I have atte mpted to edit the content, I have not thoroughly proofread this note, and toy electric train repairer erro rs may occur. CC: Kirk French MD documented in this en counter Plan of [...] | | | | | | [place] [address] | | | | | | [phone] | | | | | | | | +--------+ + + + + | 05/01/ | Procedure | Cardiology | | | | 2019 | visit | | | | +--------+ + + + + | 05/01/ | Office | Cardiology | Silvia, | | | 2019 | Visit | | [address] | | | | | | [place], | | | | | | [place] [address] | | | | | | [phone] | | | | | | | | +--------+ + + + + | 05/21/ | Implant | Cardiology | Daljit Singletary, | Remote Device | | 2019 | Monitor | | [address] | Interrogation | | | | | [place], | (Primary Dx); | | | | | [place] [address] | Pacemaker; | | | | | [phone] | Sinoatrial node | | | | [...] | + +--------+ + + + | POCT URINALYSIS, | Routin | 12/04/2014 | History of urinary | Results for this | | AUTO WITH CONF | e | 2:15 PM | incontinence | procedure are in the | | | | PST | | results section. | + +--------+ + + + | IMAGING REPORT - | | 12/04/2014 | | Results for this | | EXTERNAL SCAN | | 12:00 AM | | procedure are in the | | | | PST | | results section. | + +--------+ + + + documented in this encounter Results POCT Urinalysis Dipstick Automated (12/04/2014 2:15 PM PST) + + + + + + | Component | Value | Ref Range | Performed | Pathologist | | | | | At | Signature | + + + + + + | Color, UA, | Yellow | Yellow, Light | | | | POC | | Yellow | | | + + + + + + | Clarity, | Clear | | | | | UA, POC | | | | | + + + + + + | Glucose, | Negative | Negative | | | | UA, POC | | | | | + + + + + + | Bilirubin, | Negative | Negative | | | | UA, POC | | | | | + + + + + + | Ketones, | Negative | Negative, 100 | | | | UA, POC | | mg/dL | | | + + + + + + | Specific | 1.005 | 1.001 - 1.030 | | | | [place], | | | | | | UA, POC | | | | | + + + + + + | Blood, UA, | Negative | Negative | | | | POC | | | | | + + + + + + | pH, UA, POC | 5.5 | 5.0, 6.0, 7.0, | | | | | | 8.0, 5.5, 6.5, | | | | | | 7.5 | | | + + + + + + | Protein, | Negative | Negative | | | | UA, POC | | | | | + + + + + + | Urobilinoge | 0.2 mg/dL | 0.2, Negative, | | | | n, UA, POC | | Normal, < 0.2 | | | | | | mg/dL, 1 mg/dL, | | | | | | < 0.2 E.U./dl, | | | | | | 1.0 E.U./dL, | | | | | | 0.2 mg/dL | | | + + + + + + | Nitrite, | Negative | | | | | UA, POC | | | | | + + + + + + | Leukocyte | Negative | Negative | | | | Esterase, | | | | | | UA, POC | | | | | + + + + + + | Reducing | | | | | | Substances, | | | | | | Urine | | | | | + + + + + + | Bilirubin | | Negative | | | | Confirmatio | | | | | | n by | | | | | | Ictotest, | | | | | | Urine | | | | | + + + + + + | Remark | | | | | + + + + + + + + | Specimen | + + | Urine specimen | | (specimen) | + + IMAGING REPORT - EXTERNAL SCAN (12/04/2014 12:00 AM PST) + + + | Narrative | Performed At | + + + | Ordered by an | | | unspecified provider. | | + + + + + | Transcriptions | + + | LorieRanda - 12/04/2014 12:00 AM PST | + + documented in this encounter Visit Diagnoses + + | Diagnosis | + + | Nocturnal and diurnal enuresis - Primary Nocturnal enuresis | + + | BPH with obstruction/lower urinary tract symptoms Hypertrophy of prostate with | | urinary obstruction and other lower urinary tract symptoms (LUTS) | + + | Nocturia | + + | Obstructive sleep apnea Obstructive sleep apnea (adult) (pediatric) | + + | History of urinary incontinence Personal history of other disorder of urinary system | + + documented in this encounter
--- OUTSIDE RECORDS SUMMARY | ~2020-04-15 | XMS | Encounter Summary ---
Demographics + + + | Address | [address] | | | [place] [address] | + + + | Home Phone [...] Team Providers + +------+ + | Care Icer Air Conditioning Name | Role | Phone | + [...] + + | 07/12/ | Office | [facility] | Michael Amanda, | Preventative health | | 2013 | Visit | [facility] [place] | DO [address] | care (Primary Dx); | | | | [address] | [place], [place] | Prostate cancer | | | | [place], [place] | [address] | screening; | | | | [address] | | Hypercholesterolemia | | | | [phone] | | ; Hypertension; | | | [...] cause was found. He has seen senior label specialist and has a rechec k plan. Possible [...] | | | | | | [place] [id number] | | | | | | [phone] | | | | | | | | +--------+ + + + + | 05/01/ | Procedure | Cardiology | | | 2019 | visit | | | | +--------+ + + + + | 05/01/ | Office | Cardiology | Silvia, | | | 2019 | Visit | | [address] | | | | | | [place], | | | | | | [place] [id number] | | | | | | [phone] | | | | | | | | +--------+ + + + + | 05/21/ | Implant | Cardiology | Daljit Singletary, | Remote Device | 2019 | Monitor | | [address] [place] | Interrogation | | | | | [place], | (Primary Dx); | | | | | [place] [id number] | Pacemaker; | | | | | [phone] | Sinoatrial node | | | | [...]
--- OUTSIDE RECORDS SUMMARY | ~2020-04-15 | XMS | Encounter Summary ---
Demographics + + + | Address | [address] | | | [place] [address] | + + + | Home Phone [...] Providers + +------+ + | Care Food Court Team Member Name | Role | Phone | [...] [place] | | | | | [address] [place], [place] | [place] [address] | | | | | [address] | [phone] | | | | | [phone] | | | +--------+ + + + [...] | | | | | | [place] [address] | | | | | | [phone] | | | | | | | | +--------+ + + + + | 05/01/ | Procedure | Cardiology | | | | 2019 | visit | | | | +--------+ + + + + | 05/01/ | Office | Cardiology | Silvia, | | | 2019 | Visit | | [address] | | | | | | [place], | | | | | | [place] [address] | | | | | | [phone] | | | | | | | | +--------+ + + + + | 05/21/ | Implant | Cardiology | Daljit Singletary, | Remote Device | 2019 | Monitor | | [facility] | Interrogation | | | | | [place], | (Primary Dx); | | | | | [place] [address] | Pacemaker; | | | | | [phone] | Sinoatrial node | | | | | | dysfunction (HCC) | | | | | | with symptomatic | | | | | | bradycardia | +--------+ + + + + documented as of this encounter Visit Diagnoses Not on filedocumented in this encounter"
--- OUTSIDE RECORDS SUMMARY | ~2020-04-15 | XMS | Encounter Summary ---
Demographics + + + | Address | [address] | | | [place] [address] | + + + | Home Phone [...] Team Providers + +------+ + | Care Physical Aerodynamicist Name | Role | Phone | + [...] + | 11/02/ | Telephone | [facility] | Daljit Singletary, | Other | | 2015 | | CARDIOLOGY [address] | MD [address] | | | | | [place], | [place], | | | | | [place] [address] | [place] [address] | | | | | [phone] | [phone] | | | | | | | [...] | | | | | | [place] [address] | | | | | | [phone] | | | | | | | | +--------+ + + + + | 05/01/ | Procedure | Cardiology | | | | 2019 | visit | | | | +--------+ + + + + | 05/01/ | Office | Cardiology | Silvia, | | | 2019 | Visit | | [address] | | | | | | [place], | | | | | | [place] [address] | | | | | | [phone] | | | | | | | | +--------+ + + + + | 05/21/ | Implant | Cardiology | Daljit Singletary, | Remote Device | | 2019 | Monitor | | [address] [facility] | Interrogation | | | | | [place], | (Primary Dx); | | | | | [place] [address] | Pacemaker; | | | | | [phone] | Sinoatrial node | | | | | | dysfunction (HCC) | | | | | | with symptomatic | | | | | | bradycardia | +--------+ + + + + documented as of this encounter Visit Diagnoses Not on filedocumented in this encounter"
--- OUTSIDE RECORDS SUMMARY | ~2020-04-15 | XMS | Encounter Summary ---
Demographics + + + | Address | [address] | | | [place] [address] | + + + | Home Phone [...] Team Providers + +------+ + | Care Noteman Name | Role | Phone | + [...] Provider Unknown | | | | | [place], [place] | [phone] | | | | | [address] | | | | | | [phone] | | | +--------+ + + + [...] + + + +---------+ + + | [place]-[employer] Fatty | CAPS, one capsule by | [...] | | | | | | | #[id number], exp 07/2016 | | | | | [...] | | | | | | [place] [address] | | | | | | [phone] | | | | | | | | +--------+ + + + + | 05/01/ | Procedure | Cardiology | | | | 2019 | visit | | | | +--------+ + + + + | 05/01/ | Office | Cardiology | Silvia, | | | 2019 | Visit | | [address] | | | | | | [place], | | | | | | [place] [address] | | | | | | [phone] | | | | | | | | +--------+ + + + + | 05/21/ | Implant | Cardiology | Daljit Singletary, | Remote Device | | 2020 | Monitor | | [address] [place] | Interrogation | | | | | [place], | (Primary Dx); | | | | | [place] [address] | Pacemaker; | | | | | [phone] | Sinoatrial node | | | | | | dysfunction ([facility]) | | | | | | [...]
--- OUTSIDE RECORDS SUMMARY | ~2020-04-15 | XMS | Encounter Summary ---
Demographics + + + | Address | [address] | | | [place] [address] | + + + | Home Phone [...] Team Providers + +------+ + | Care Sr Risk Management Consultant Name | Role | Phone | + +------+ + PCP | Unavailable | + +------+ + Encounter Details +--------+ + + + + | Date | Type | Department | Care Team | Description | +--------+ + + + + | 01/21/ | Emergency | [facility] | Kirill Dominique | Unspecified Chest | | 2009 | | [facility]ICAL CENTER | MD Jonas [address] | Pain | | | | EMERGENCY CENTER | [address] [place] | | | | | [address] | [address] | | | | | [place] | [phone] | | | | | [address] | | | | | | [phone] | | | +--------+ + + + [...] W | | | | | | [place], | | | | | | [place] [address] | | | | | | [phone] | | | | | | | | +--------+ + + + + | 05/01/ | Procedure | Cardiology | | | | 2019 | visit | | | | +--------+ + + + + | 05/01/ | Office | Cardiology | [place], | | | 2019 | Visit | | PARISA [place] W | | | | | | [place], | | | | | | [place] [address] | | | | | | [phone] | | | | | | | | +--------+ + + + + | 05/21/ | Implant | Cardiology | Daljit Singletary, | Remote Device | | 2019 | Monitor | | [address] [place] | Interrogation | | | | | [place], | (Primary Dx); | | | | | [place] [address] | Pacemaker; | | | | | [phone] | Sinoatrial node | | | | | | dysfunction (HCC) | | | | | | with symptomatic | | | | | | bradycardia | +--------+ + + + + documented as of this encounter Visit Diagnoses + + | Diagnosis | + + | Chest pain, unspecified | + + documented in this encounter"
--- OUTSIDE RECORDS SUMMARY | ~2020-04-15 | XMS | Encounter Summary ---
Demographics + + + | Address | [address] | | | [place] [address] | + + + | Home Phone [...] Team Providers + +------+ + | Care Jewelry Casting Model Maker Apprentice Name | Role | Phone | + +------+ + PCP | Unavailable | + +------+ + Encounter Details +--------+ + + + + | Date | Type | Department | Care Team | Description | +--------+ + + + + | 09/29/ | Hospital | [facility] | | | | 1995 | Encounter | MED CTR EMERGENCY | | | | | | [place] [address] | | | | | | [place] | | | | | | [address] | | | | | | [phone] | | | +--------+ + + + [...] | | | | | | [place] [address] | | | | | | [phone] | | | | | | | | +--------+ + + + + | 05/01/ | Procedure | Cardiology | | | | 2019 | visit | | | | +--------+ + + + + | 05/01/ | Office | Cardiology | [place], | | | 2019 | Visit | | [address] [address] | | | | | | [place], | | | | | | [place] [address] | | | | | | [phone] | | | | | | | | +--------+ + + + + | 05/21/ | Implant | Cardiology | Daljit Singletary, | Remote Device | 2019 | Monitor | | [address] [place] | Interrogation | | | | | [place], | (Primary Dx); | | | | | [place] [address] | Pacemaker; | | | | | [phone] | Sinoatrial node | | | | | | dysfunction (HCC) | | | | | | with symptomatic | | | | | | bradycardia | +--------+ + + + + documented as of this encounter Visit Diagnoses Not on filedocumented in this encounter"
--- OUTSIDE RECORDS SUMMARY | ~2020-04-15 | XMS | Encounter Summary ---
Demographics + + + | Address | [address] | | | [place] [address] | + + + | Home Phone [...] Team Providers + +------+ + | Care Auditing Control Clerk Name | Role | Phone | + +------+ + | Kirk French MD | PCP | | + +------+ + Encounter Details +--------+ + + + + | Date | Type | Department | Care Team | Description | +--------+ + + + + | 07/21/ | Hospital | [facility] | Daljit Singletary, | | | 2018 | Encounter | MED CTR NUCLEAR | MD [address] [place] | | | | | MEDICINE [address] | [address] [place], | | | | | [place] | [place] [address] | | | | | [place] [address] | [phone] | | | | | [phone] | | | +--------+ + + + [...] + + + +---------+ + + | Partlow-3 Fatty | CAPS, one capsule by | [...] | | | | | | [place], | | | | | | [place] [address] | | | | | | [phone] | | | | | | | | +--------+ + + + + | 05/01/ | Procedure | Cardiology | | | | 2019 | visit | | | | +--------+ + + + + | 05/01/ | Office | Cardiology | [place], | | | 2019 | Visit | | PAR[place] [address] | | | | | | [place], | | | | | | [place] [address] | | | | | | [phone] | | | | | | | | +--------+ + + + + | 05/21/ Implant | Cardiology | Daljit Singletary, | Remote Device | | 2019 | Monitor | | [facility] | Interrogation | | | | | [place], | (Primary Dx); | | | | | [place] [address] | Pacemaker; | | | | | [phone] | Sinoatrial node | | | | [...] | | | | | | Starting [facility] 07/21/18 at 1224, For | | | | | | | 1 dose, Nuclear Medicine | | | | | | + +--------+ + +------+------+ +---+---+ | | | +---+---+ documented in this encounter"
--- OUTSIDE RECORDS SUMMARY | ~2020-04-15 | XMS | Encounter Summary ---
Demographics + + + | Address | [address] | | | [place] [address] | + + + | Home Phone [...] Providers + +------+ + | Care Corn Popper Name | Role | Phone | + [...] + + | 04/12/ | Telephone | [facility] | Daljit Singletary, | Other (issues with | | 2017 | | CARDIOLOGY [address] | MD [address] [place] | low blood pressure | | | | [place], | [place], | and dizziness) | | | | [place] [address] | [place] [id number] | | | | | [phone] | [phone] | | | | | | | [...] | | | | | | [place] [address] | | | | | | [phone] | | | | | | | | +--------+ + + + + | 05/01/ | Procedure | Cardiology | | | | 2020 | visit | | | | +--------+ + + + + | 05/01/ | Office | Cardiology | [place], | | | 2019 | Visit | | [address] [address] | | | | | | [place], | | | | | | [place] [address] | | | | | | [phone] | | | | | | | | +--------+ + + + + | 05/21/ | Implant | Cardiology | Daljit Singletary, | Remote Device | 2019 | Monitor | | [address] [place] | Interrogation | | | | | [place], | (Primary Dx); | | | | | [place] [address] | Pacemaker; | | | | | [phone] | Sinoatrial node | | | | | | dysfunction (HCC) | | | | | | with symptomatic | | | | | | bradycardia | +--------+ + + + + documented as of this encounter Visit Diagnoses Not on filedocumented in this encounter"
--- OUTSIDE RECORDS SUMMARY | ~2020-04-15 | XMS | Encounter Summary ---
Demographics + + + | Address | [address] | | | [place] [address] | + + + | Home Phone [...] Team Providers + +------+ + | Care Glue Cook Name | Role | Phone | [...] + + | 08/04/ | Telephone | [facility] | [place], | Other (4 week event | | 2017 | | CARDIOLOGY [address] | [place] [address] | monitor ) | | | | [place], | [place], | | | | | [place] [address] | [place] [address] | | | | | [phone] | [phone] | | | | | | | [...] | | | | | | [place] [address] | | | | | | [phone] | | | | | | | | +--------+ + + + + | 05/01/ | Procedure | Cardiology | | | | 2020 | visit | | | | +--------+ + + + + | 05/01/ | Office | Cardiology | [place], | | | 2019 | Visit | | PAR[place] [address] | | | | | | [place], | | | | | | [place] [address] | | | | | | [phone] | | | | | | | | +--------+ + + + + | 05/21/ | Implant | Cardiology | Daljit Singletary, | Remote Device | 2019 | Monitor | | [address] | Interrogation | | | | | [place], | (Primary Dx); | | | | | [place] [address] | Pacemaker; | | | | | [phone] | Sinoatrial node | | | | | | dysfunction (HCC) | | | | | | with symptomatic | | | | | | bradycardia | +--------+ + + + + documented as of this encounter Visit Diagnoses Not on filedocumented in this encounter"
--- OUTSIDE RECORDS SUMMARY | ~2020-04-15 | XMS | Encounter Summary ---
Demographics + + + | Address | [address] | | | [place] [address] | + + + | Home Phone [...] Team Providers + +------+ + | Care Sealer Aircraft Name | Role | Phone | + [...] | Telephone | [facility] [place] | [place], | Other (not feeling | | 2013 | | [place] [address] | [place] [address] | [place]all) | | | | [place], | [place], | | | | | [place] [address] | [place] [address] | | | | | [phone] | [phone] | | | | | | | [...] W | | | | | | [place], | | | | | | [place] [address] | | | | | | [phone] | | | | | | | | +--------+ + + + + | 05/01/ | Procedure | Cardiology | | | | 2019 | visit | | | | +--------+ + + + + | 05/01/ | Office | Cardiology | [place], | | | 2019 | Visit | | [place] [address] | | | | | | [place], | | | | | | [place] [address] | | | | | | [phone] | | | | | | | | +--------+ + + + + | 05/21/ | Implant | Cardiology | Daljit Singletary, | Remote Device | | 2019 | Monitor | | [facility] | Interrogation | | | | | [place], | (Primary Dx); | | | | | [place] [address] | Pacemaker; | | | | | [phone] | Sinoatrial node | | | | | | dysfunction (HCC) | | | | | | with symptomatic | | | | | | bradycardia | +--------+ + + + + documented as of this encounter Visit Diagnoses Not on filedocumented in this encounter"
--- OUTSIDE RECORDS SUMMARY | ~2020-04-15 | XMS | Encounter Summary ---
Demographics + + + | Address | [address] | | | [place] [address] | + + + | Home Phone [...] + +------+ + | Care Food Service Supervisor Name | Role | Phone | [...] | CARDIOLOGY [address] | [address] [place] | (Primary Dx); | | | | [place], | [place], | Tachycardia; | | | | [place] [address] | [place] [address] | Coronary artery | | | | [phone] | [phone] | disease involving | | | | | | northway coronary | | | | | | artery of northway | | | | | | heart [...] | | | | | | [place] [address] | | | | | | [phone] | | | | | | | | +--------+ + + + + | 05/01/ | Procedure | Cardiology | | | | 2019 | visit | | | | +--------+ + + + + | 05/01/ | Office | Cardiology | [place], | | | 2019 | Visit | | [place] W | | | | | | [place], | | | | | | [place] [address] | | | | | | [phone] | | | | | | | | +--------+ + + + + | 05/21/ | Implant | Cardiology | Daljit Singletary, | Remote Device | 2019 | Monitor | | [facility] | Interrogation | | | | | [place], | (Primary Dx); | | | | | [place] [address] | Pacemaker; | | | | | [phone] | Sinoatrial node | | | | | | dysfunction ([facility]) | | | | | [...] involving | | | | | | northway coronary | | | | | | artery of northway | | | | | | heart [...] DALJIT | | | | | | ([id number]) on 06/29/2018 | | | | | [...] + + | Coronary artery disease involving northway coronary artery of northway heart without | | angina pectoris | + + | Hypertension, unspecified type | + + documented in this encounter"
--- OUTSIDE RECORDS SUMMARY | ~2020-04-15 | XMS | Encounter Summary ---
Demographics + + + | Address | [address] | | | [place] [address] | + + + | Home Phone [...] Team Providers + +------+ + | Care Polisher Balance Screwhead Name | Role | Phone | + +------+ + | Kirk French MD | PCP | | + +------+ + Encounter Details +--------+ + + + + | Date | Type | Department | Care Team | Description | +--------+ + + + + | 11/17/ | Telephone | [facility] | Kirk French | | | 2019 | | GERALDINE Guidry MD [address] | | | | | PRIMARY [address] [address] | [address] | | | | | [address] | [place] [address] | | | | | [place], [place] | [phone] | | | | | [address] | | | | | | [phone] | | | +--------+ + + + [...] | | | | | | [place] [address] | | | | | | [phone] | | | | | | | | +--------+ + + + + | 05/01/ | Procedure | Cardiology | | | | 2019 | visit | | | | +--------+ + + + + | 05/01/ | Office | Cardiology | [place], | | | 2019 | Visit | | PAR[place] [address] | | | | | | [place], | | | | | | [place] [address] | | | | | | [phone] | | | | | | | | +--------+ + + + + | 05/21/ | Implant | Cardiology | Daljit Singletary, | Remote Device | | 2019 | Monitor | | [facility] | Interrogation | | | | | [place], | (Primary Dx); | | | | | [place] [address] | Pacemaker; | | | | | [phone] | Sinoatrial node | | | | | | dysfunction (HCC) | | | | | | with symptomatic | | | | | | bradycardia | +--------+ + + + + documented as of this encounter Visit Diagnoses Not on filedocumented in this encounter"
--- OUTSIDE RECORDS SUMMARY | ~2020-04-15 | XMS | Encounter Summary ---
Demographics + + + | Address | [address] | | | [place] [address] | + + + | Home Phone [...] Team Providers + +------+ + | Care Appeals Reviewer Veteran Name | Role | Phone | + [...] | | PVCs | [place] | [address] | | | | | Procedures | [address] | [address] | | | | | [place] OFFICE | [place] | [place] | | | | | CONSULTATION | [place], | [address] Phone: | | | | | NEW/ESTAB | [place] | [phone] | | | | | PATIENT 40 | [address] | Fax: | | | | | MIN | Phone: | [phone] | | | | | | [phone] | | | | | | | Fax: | | | | | | | [phone] | | +--------+--------+ + + + + Encounter Details +--------+---------+ + + + | Date | Type | Department | Care Team | Description | +--------+---------+ + + + | 11/30/ | Office | [facility] | Jay Gambino MD | Symptomatic PVCs | | 2015 | Visit | [place]ARDIOLOGY [place] | [address] | (Primary Dx) | | | | HI[address] | [address] [place], | | | | | [facility] [address] [place] | [place] [address] | | | | | [address] | [phone] | | | | | [phone] | | | +--------+---------+ + + + [...] Gambino MD - 11/30/2014 5:37 PM PST [facility] [address] [place] [address] Patient Name: Moe Sanchez Date: 1960 Date [...] luz marcos as needed for Chest pain. [place]-3 Fatty Acids (SALMON OIL-1000 PO) CAPS, one [...] (1980 1984); Hypoglycemia; Drug addiction in remission ([facility]); HTN (hypertension); Hypercholesterolemia; Bipolar 1 disorder ( [...] were not detected in the editing p [employer]. Should you have any questions or concerns, [...] W | | | | | | [place], | | | | | | [place] [address] | | | | | | [phone] | | | | | | | | +--------+ + + + + | 05/01/ | Procedure | Cardiology | | | | 2019 | visit | | | | +--------+ + + + + | 05/01/ | Office | Cardiology | Silvia, | | | 2019 | Visit | | PARISA [place] W | | | | | | [place], | | | | | | [place] [address] | | | | | | [phone] | | | | | | | | +--------+ + + + + | 05/21/ | Implant | Cardiology | AnshujohnsoncherelleDaljit, | Remote Device | | 2019 | Monitor | | [facility] | Interrogation | | | | | [place], | (Primary Dx); | | | | | [place] [address] | Pacemaker; | | | | | [phone] | Sinoatrial node | | | | [...]
--- OUTSIDE RECORDS SUMMARY | ~2020-04-15 | XMS | Encounter Summary ---
Demographics + + + | Address | [address] | | | [place] [address] | + + + | Home Phone [...] Team Providers + +------+ + | Care Posting Clerk Name | Role | Phone | [...] Eva [place] | | | | | [place], [place] | [address] | | | | | [address] | [place] [address] | | | | | [phone] | [phone] | | | | | | | [...] W | | | | | | [place], | | | | | | [place] [address] | | | | | | [phone] | | | | | | | | +--------+ + + + + | 05/01/ | Procedure | Cardiology | | | | 2019 | visit | | | | +--------+ + + + + | 05/01/ | Office | Cardiology | Silvia, | | | 2019 | Visit | | PARISA [place] W | | | | | | [place], | | | | | | [place] [address] | | | | | | [phone] | | | | | | | | +--------+ + + + + | 05/21/ | Implant | Cardiology | Daljit Singletary, | Remote Device | 2019 | Monitor | | MD [address] [place] | Interrogation | | | | | [place], | (Primary Dx); | | | | | [place] [address] | Pacemaker; | | | | | [phone] | Sinoatrial node | | | | [...]
--- OUTSIDE RECORDS SUMMARY | ~2020-04-15 | XMS | Encounter Summary ---
Demographics + + + | Address | [address] | | | [place] [address] | + + + | Home Phone [...] Providers + +------+ + | Care Tobacco Scrap Sifter Name | Role | Phone | + [...] | SR | | | | | [address] | | | | | | [place], [place] | | | | | | [address] | | | | | | [phone] | | | +--------+ + + + [...] | | | | | | [place] [address] | | | | | | [phone] | | | | | | | [...] | | | | | | [place] [address] | | | | | | [phone] | | | | | | | | +--------+ + + + + | 05/21/ | Implant | Cardiology | Daljit Singletary, | Remote Device | 2019 | Monitor | | MD Sim [facility] | Interrogation | | | | | [place], | (Primary Dx); | | | | | [place] [address] | Pacemaker; | | | | | [phone] | Sinoatrial node | | | | [...]
--- OUTSIDE RECORDS SUMMARY | ~2020-04-15 | XMS | Encounter Summary ---
Demographics + + + | Address | [address] | | | [place] [address] | + + + | Home Phone [...] Providers + +------+ + | Care Property Loss Insurance Claim Adjuster Name | Role | Phone | + +------+ + | Kirk French MD | PCP | | + +------+ + Encounter Details +--------+ + + + + | Date | Type | Department | Care Team | Description | +--------+ + + + + | 01/05/ | Hospital | [facility] | Emmanuel Daniel MD | Functional diarrhea | | 2019 | Encounter | MED CTR MP INTRA OP | [address] [place] | (Primary Dx); Weight | | | | [address] | [address] [place], [place] | loss | | | | [place], [place] | [address] | | | | | [address] | | | | | | [phone] | | | +--------+ + + + [...] for a few hours. Date Last Reviewed: 09/22/201619993016-5880 [employer]. [address] [place] [address], [place] [address]. All righ ts reserved. This information is [...] vomiting, or vomiting blood Date Last Reviewed: 05/22/201619999845-5861 [employer]. [address] [place] [address]. All [facility] ts reserved. This information is not intended [...] You can't be awakened Date Last Reviewed: 09/08/201619990918-1566 [employer]. [address] [place] [address], [place] [address]. All righ ts reserved. This information is [...] + + + +---------+ + + | [place]-3 Fatty | CAPS, one capsule by | [...] | | | | | | [place] [address] | | | | | | [phone] | | | | | | | | +--------+ + + + + | 05/01/ | Procedure | Cardiology | | | | 2019 | visit | | | | +--------+ + + + + | 05/01/ | Office | Cardiology | Silvia, | | | 2019 | Visit | | [place] [address] | | | | | | [place], | | | | | | [place] [address] | | | | | | [phone] | | | | | | | | +--------+ + + + + | 05/21/ | Implant | Cardiology | Daljit Singletary, | Remote Device | 2019 | Monitor | | [address] | Interrogation | | | | | [place], | (Primary Dx); | | | | | [place] [address] | Pacemaker; | | | | | [phone] | Sinoatrial node | | | | [...] [address], | REFERENCE LAB | | [place] [phone] Can Top Setter: Miguel Galarza MD, Phone: | [facility] | | [phone] | | + + + + + + + + | Performing | Address | City/State/Zipcode | Phone Number | | Organization | | | | + + + + + | REFERENCE LAB | [address] | [place], [place] | [phone] | | [facility] | [address] | [address] | | + + + + + [...] at: 01 - Arsh Hodges [address], | REFERENCE LAB | | [place], [place] [id number] Can Top Setter: Miguel Galarza MD, Phone: | [facility] | | [phone] | | + + + + + + + + | Performing | Address | City/State/Zipcode | Phone Number | | Organization | | | | + + + + + | REFERENCE LAB | [address] | [place], [place] | [phone] | | [facility] | [facility] | [address] | | + + + + + [...] [address] | [place] | [phone] | | [facility] | | [address] | | | - LABORATORY | | [...] [address] | [place] | [phone] | | [facility] | | [address] | | | - LABORATORY | | [...] | | | dium | | | [address] | | | Antigen | | [...] [address] | [place] | [phone] | | [facility] | | [address] | | | - LABORATORY | | [...] | | Antigen, | | | [facility] | | | Stool | | | [...] [address] | [place] | [phone] | | [facility] | | [address] | | | - LABORATORY | | [...] + | [facility] | [address] | [place], [place] | [phone] | | [facility] | | [address] | | | - LABORATORY | | [...] [address] | [place] | [phone] | | [facility] | | [address] | | | - LABORATORY | | | | + + + + + EGD (01/05/2019 8:36 AM PST) + + | Specimen | + + | | + + + + -+ | Narrative | Performed At | + + -+ | | [facility] | | GastroenterologyPatient Name: Moe SanchezProcedpasha Date: | PROVATION | | 01/05/2019 8:36 AMMRN: [id number] #: [id number] of : | | | 9Admit Type: AmbulatoryAge: 58Room: [facility] 01Gender: MaleNote | | | Status: FinalizedAttending MD: Emmanuel Daniel , MDProcedure: | | | Upper GI endoscopyIndications: Diarrhea, Weight | | | lossProviders: Emmanuel Daniel MD, Heidi Mixon [place], | | | RN, Kim Hicks, Exhibit Specialist, | | | Jarett Barakat MD (Anesthesia | | | Staff)Referring MD: Kirk French (Referring | | | )Medicines: Propofol per AnesthesiaComplications: | | | No [...] physician, the nurse, the anesthesiologist and the optical coating technician | | | in the endoscopy [...] | | Imaging was performed using the [employer] | | | Endoscopy (FICE) [...] Scope In: 8:43:57 AMScope Out: 8:49:50 AM [facility]. | | | [facility], [address] [place] [address] | | | [phone] | | |Recommendation: | | | - [...] |Scope Out: 8:49:50 AM | | | [facility]. [facility], [facility] [address] [place], [place] | | | [address] | | + + -+ + +---------+ + + | Performing | Address | City/State/[facility] | Phone Number | | [...] | [place] | | 01/05/2019 8:36 AMMRN: [id number] #: [id number] of : | | | 9Admit Type: AmbulatoryAge: 58Room: [facility] 01Gender: MaleNote | | | Status: FinalizedAttending MD: Emmanuel Daniel , MDProcedure: | | | ColonoscopyIndications: Clinically significant diarrhea of | | | unexplained origin, Weight lossProviders: | | | Emmanuel Daniel MD, Heidi An RN, Kim | | | Fiorella Hicks, Exhibit Specialist, Jarett Alejo | | | MD Roshni [...] | | | the anesthesiologist and the optical coating technician in the endoscopy suite. | | [...] AMScope Out: | | | 9:06:28 AM [facility], [address] [place] [address], | | | [place] [address] | | | - Discharge patient to [...] |Scope Out: 9:06:28 AM | | | [facility], [address] [place] [address], [place], [place] | | | [address] | | + + -+ + +---------+ [...] | | | (atherosclerotic heart disease of white earth coronary artery without | | | angina [...] chronic or | | | microscopic colitis. [facility]:C3NR GROSS DESCRIPTION: A. The | | | specimen, labeled "[place], duodenal biopsy" is received in formalin | | | and consists of seven 0.1-0.5 cm lin fragments. Entirely submitted in | | | (A1). B. The specimen, labeled "[place], right colon" is received | | | in formalin and consists of six 0.2-0.3 cm lin fragments. Entirely | | | submitted in (B1). C. The specimen, labeled "[place], left colon" | | | is received in formalin and consists of six 0.2-0.3 cm lin-pink | | | fragments. Entirely submitted in (C1). am:AMB:portillo PERFORMING | | | LABORATORY: The technical component was performed by [employer] | | | [employer], [address] [place] [address] (Kieselguhr Regenerator Operator: | | | Kailey Stafford MD; CLIA# [id number]). Professional interpretation was | | | performed by [employer], [facility], [address] | | | [place] [address] (Kieselguhr Regenerator Operator: Ishaan | | | Anthony Dao; CLIA#: [id number]). Diagnostician: Ishaan Fitzpatrick | | | Sylwia [...] ONCE PRN, Wheezing, | | | Starting [facility] 01/05/19 at 0924, | | | For [...] ONCE | | | PRN, Nausea, Starting [facility] 01/05/19 | | | at 0924, For 1 dose, | | | Recovery/Phase I | | + +---+ | | | + +---+ documented in this encounter
--- OUTSIDE RECORDS SUMMARY | ~2020-04-15 | XMS | Encounter Summary ---
Demographics + + + | Address | [address] | | | [place] [address] | + + + | Home Phone [...] Team Providers + +------+ + | Care Jockey'S Agent Name | Role | Phone | [...] | disease involving | | | | [place], | [place], | sun'aq coronary | | | | [place] [address] | [place] [address] | artery without | | | | [phone] | [phone] | angina pectoris | | | | [...] W | | | | | | [place], | | | | | | [place] [address] | | | | | | [phone] | | | | | | | | +--------+ + + + + | 05/01/ | Procedure | Cardiology | | | | 2019 | visit | | | | +--------+ + + + + | 05/01/ | Office | Cardiology | Silvia, | | | 2019 | Visit | | [place] [address] | | | | | | [place], | | | | | | [place] [address] | | | | | | [phone] | | | | | | | | +--------+ + + + + | 05/21/ | Implant | Cardiology | Daljit Singletary, | Remote Device | | 2020 | Monitor | | MD [address] [facility] | Interrogation | | | | | [place], | (Primary Dx); | | | | | [place] [address] | Pacemaker; | | | | | [phone] | Sinoatrial node | | | | [...] MD | | | | | | ([id number]) on 08/29/2015 | | | | | [...] + + | Coronary artery disease involving sun'aq coronary artery without angina pectoris - | | Primary | + + documented in this encounter"
--- OUTSIDE RECORDS SUMMARY | ~2020-04-15 | XMS | Encounter Summary ---
Demographics + + + | Address | [address] | | | [place] [address] | + + + | Home Phone [...] Providers + +------+ + | Care Research Statistician Name | Role | Phone | + [...] | 05/08/ | Telephone | [facility] | Emmanuel Daniel MD | Other | | 2019 | | GASTROENTEROLOGY | [address] [place], [place] | | | | | [address] | [address] [place], [place] | | | | | [address] [place], [place] | [address] | | | | | [address] | | | | | | [phone] | | | +--------+ + + + [...] | | | | | | [place] [address] | | | | | | [phone] | | | | | | | | +--------+ + + + + | 05/01/ | Procedure | Cardiology | | | | 2020 | visit | | | | +--------+ + + + + | 06/10/ | Office | Cardiology | Silvia, | | | 2019 | Visit | | [place] [address] | | | | | | [place], | | | | | | [place] [address] | | | | | | [phone] | | | | | | | | +--------+ + + + + | 05/21/ | Implant | Cardiology | Daljit Singletary, | Remote Device | 2019 | Monitor | | [address] | Interrogation | | | | | [place], | (Primary Dx); | | | | | [place] [address] | Pacemaker; | | | | | [phone] | Sinoatrial node | | | | | | dysfunction (HCC) | | | | | | with symptomatic | | | | | | bradycardia | +--------+ + + + + documented as of this encounter Visit Diagnoses Not on filedocumented in this encounter"
--- OUTSIDE RECORDS SUMMARY | ~2020-04-15 | XMS | Encounter Summary ---
Demographics + + + | Address | [address] | | | [place] [address] | + + + | Home Phone [...] Team Providers + +------+ + | Care Skills Auditor Name | Role | Phone | + +------+ + | Kirk French MD | PCP | | + +------+ + Encounter Details +--------+ + + + + | Date | Type | Department | Care Team | Description | +--------+ + + + + | 10/25/ | Hospital | [facility] | Kirk French | Aneurysm (HCC) | | 2017 | Encounter | MED CTR ULTRASOUND | D, MD [address] | | | | | [address] [place] | [address] | | | | | [place], [place] | [place] [address] | | | | | [address] | [phone] | | | | | [phone] | | | | | | | [...] + + + +---------+ + + | [place]-3 Fatty | CAPS, one capsule by | [...] W | | | | | | [place], | | | | | | [place] [address] | | | | | | [phone] | | | | | | | | +--------+ + + + + | 05/01/ | Procedure | Cardiology | | | | 2019 | visit | | | | +--------+ + + + + | 05/01/ | Office | Cardiology | [place], | | | 2019 | Visit | | [place] [address] | | | | | | [place], | | | | | | [place] [address] | | | | | | [phone] | | | | | | | | +--------+ + + + + | 05/21/ | Implant | Cardiology | Daljit Singletary, | Remote Device | | 2019 | Monitor | | [address] [facility] | Interrogation | | | | | [place], | (Primary Dx); | | | | | [place] [address] | Pacemaker; | | | | | [phone] | Sinoatrial node | | | | [...]
--- OUTSIDE RECORDS SUMMARY | ~2020-04-15 | XMS | Encounter Summary ---
Demographics + + + | Address | [address] | | | [place] [address] | + + + | Home Phone [...] + +------+ + | Care Income Tax Investigator Name | Role | Phone | + [...] Provider Unknown | | | | | [place], [place] | [phone] | | | | | [address] | | | | | | [phone] | | | +--------+ + + + [...] + + + +---------+ + + | [place]-3 Fatty | CAPS, one capsule by | [...] | | | | | | | #[id number], exp 07/2016 | | | | | [...] | | | | | | [place] [address] | | | | | | [phone] | | | | | | | | +--------+ + + + + | 05/01/ | Procedure | Cardiology | | | | 2019 | visit | | | | +--------+ + + + + | 05/01/ | Office | Cardiology | Silvia, | | | 2019 | Visit | | PARISA Vernon [address] | | | | | | [place], | | | | | | [place] [address] | | | | | | [phone] | | | | | | | | +--------+ + + + + | 05/21/ | Implant | Cardiology | Daljit Singletary, | Remote Device | | 2020 | Monitor | | [address] | Interrogation | | | | | [place], | (Primary Dx); | | | | | [place] [address] | Pacemaker; | | | | | [phone] | Sinoatrial node | | | | | | dysfunction ([facility]) | | | | | | with [...]
--- OUTSIDE RECORDS SUMMARY | ~2020-04-15 | XMS | Encounter Summary ---
Demographics + + + | Address | [address] | | | [place] [address] | + + + | Home Phone [...] Team Providers + +------+ + | Care Database Security Expert Name | Role | Phone | [...] | CARDIOLOGY [address] | [address] | Interrogation | | | | [place], | [place], | (Primary Dx); | | | | [place] [address] | [place] [address] | Pacemaker; | | | | [phone] | [phone] | Sinoatrial node | | | | [...] | | | | | | [place] [address] | | | | | | [phone] | | | | | | | | +--------+ + + + + | 05/01/ | Procedure | Cardiology | | | | 2019 | visit | | | | +--------+ + + + + | 05/01/ | Office | Cardiology | Silvia, | | | 2019 | Visit | | PARISA Vernon [address] | | | | | | [place], | | | | | | [place] [address] | | | | | | [phone] | | | | | | | | +--------+ + + + + | 05/21/ | Implant | Cardiology | Daljit Singletary, | Remote Device | | 2019 | Monitor | | [address] [place] | Interrogation | | | | | [place], | (Primary Dx); | | | | | [place] [address] | Pacemaker; | | | | | [phone] | Sinoatrial node | | | | | | dysfunction ([facility]) | | | | | | with [...] remote PDF scanned into | | | [facility] for remote interrogation results. Data [...]
--- OUTSIDE RECORDS SUMMARY | ~2020-04-15 | XMS | Encounter Summary ---
Demographics + + + | Address | [address] | | | [place] [address] | + + + | Home Phone [...] Providers + +------+ + | Care Paper Inserter Name | Role | Phone | + [...] + + | 12/29/ | [facility] | [facility] | Silvia, | Ascending thoracic | | 2017 | Visit | CARDIOLOGY [address] | PARISA Vernon [address] | aortic aneurysm | | | | [place], | [place], | (HCC) (Primary Dx); | | | | [place] [address] | [place] [address] | Coronary artery | | | | [phone] | [phone] | disease involving | | | | | | federated indians of graton coronary | | | | | | artery of fed[place] indians of graton | | | | | | heart [...] of non-critical coronary artery d isease involving fed[place] coronary artery of fed[place] heart without angina pectoris, essential h ypertension, [...] start Losartan 25 mg once every day, [facility] blood pressure log, and follow up in 3 months. Since that time, he went to the ER in [facility] with chest pain at the end of [...] Preventative health care Coronary artery disease involving fed[place] indians of gr[place] coronary artery of fed[place] indians [place] heart without angina pectoris Cannabis abuse, daily [...] 3RD DOSE, CALL 911 100 tablet 3 [place]-3 Fatty Acids (SALMON OIL-1000 PO) CAPS, one [...] was found Confirmed by SYDNI SINGLETARY MD ([id number]) on 06/23/2016 2:08:15 PM LAB RESULTS reviewed during visit today primarily from [facility]: LIPID Lab Results Component Value Date [...] PLTEX 129* 05/12/2016 I reviewed records from [facility] for office visit on 09/01/2016 which [...] He is in class I of the [employer] functional class. On physical examination there are no signs of fl uid overload. 2. Non-critical Coronary artery disease involving fed[place] indians [place] coronary a rtery of fed[place] indians of gr[place] heart without angina pectoris: A. Normal exercise [...] ventricular arrhythmia performed by Dr. Gambino at [facility] on 01/30/2013. Patient had spontaneous PVCs [...] to go back in 3 days to [place] for an attempt of ablation under general [...] is a normal stable device function. Estimated Rdioi ng battery longevity is 5 years.. 5. Lightheadedness and dizziness/ presyncope: A. Episode of presyncope [facility], thought to have vasovagal symptoms. 6. [...] this chart may have been created with IPNetVoice voice recognition software. Occasi onal wrong-word or [...] W | | | | | | [place], | | | | | | [place] [address] | | | | | | [phone] | | | | | | | | +--------+ + + + + | 05/01/ | Procedure | Cardiology | | | | 2019 | visit | | | | +--------+ + + + + | 05/01/ | Office | Cardiology | Silvia | | | 2019 | Visit | | PARISA Vernon [address] | | | | | | [place], | | | | | | [place] [address] | | | | | | [phone] | | | | | | | | +--------+ + + + + | 05/21/ | Implant | Cardiology | Sydni Singletary, | Remote Device | 2019 | Monitor | | [address] [place] | Interrogation | | | | | [place], | (Primary Dx); | | | | | [place] [address] | Pacemaker; | | | | | [phone] | Sinoatrial node | | | | | | dysfunction ([facility]) | | | | | | with symptomatic | | | | | | bradycardia | +--------+ + + + + documented as of this encounter Visit Diagnoses + + | Diagnosis | + + | Ascending thoracic aortic aneurysm (HCC) - Primary Thoracic aneurysm without mention | | of rupture | + + | Coronary artery disease involving federated indians of gr[place] coronary artery of federated indians of gr[place] heart without | | angina pectoris | + + | Essential hypertension with goal blood pressure less than 130/80 | + + | Hyperlipidemia, mixed Mixed hyperlipidemia | + + documented in this encounter
--- OUTSIDE RECORDS SUMMARY | ~2020-04-15 | XMS | Encounter Summary ---
Demographics + + + | Address | [address] | | | [place] [address] | + + + | Home Phone [...] Providers + +------+ + | Care Automatic Shirring Machine Operator Name | Role | Phone [...] | | 2018 | | [address] | MD William [address] | | | | | [place] | [address] | | | | | [address] | [place] | | | | | [phone] | [address] | | | | | | [phone] | | | | | | | [...] Notes by Kylah Fraser CMA at 04/11/18 7405 Author: Kylah Frasre CMA Service: (none) Author Type: Retirement Specialist Filed: 04/19/18 1118 Encounter Date: 04/11/2018 Status: Signed Departmental Shipping Clerk: Kylah Fraser CMA (Retirement Specialist) See telephone encounter 04/19/18. Karen pfeiffer in [...] | | | | | | [place] [address] | | | | | | [phone] | | | | | | | | +--------+ + + + + | 05/01/ | Procedure | Cardiology | | | | 2019 | visit | | | | +--------+ + + + + | 05/01/ | Office | Cardiology | Silvia, | | | 2019 | Visit | | PARISA Vernon [address] | | | | | | [place], | | | | | | [place] [address] | | | | | | [phone] | | | | | | | | +--------+ + + + + | 05/21/ | Implant | Cardiology | Daljit Singlteary, | Remote Device | | 2019 | Monitor | | [address] [place] | Interrogation | | | | | [place], | (Primary Dx); | | | | | [place] [address] | Pacemaker; | | | | | [phone] | Sinoatrial node | | | | [...]
--- OUTSIDE RECORDS SUMMARY | ~2020-04-15 | XMS | Encounter Summary ---
Demographics + + + | Address | [address] | | | [place] [address] | + + + | Home Phone [...] Team Providers + +------+ + | Care Pharmacy Picking Tech Name | Role | Phone | [...] + + | 01/22/ | Refill | [facility] | Kirk French | Medication Refill | | 2019 | | [facility] | MD Brea [address] | | | | | [facility] | | | | | [address] | [place] [address] | | | | | [place], [place] | [phone] | | | | | [address] | | | | | | [phone] | | | +--------+--------+ + + + [...] | | | | | | [place] [address] | | | | | | [phone] | | | | | | | | +--------+ + + + + | 05/01/ | Procedure | Cardiology | | | | 2019 | visit | | | | +--------+ + + + + | 05/01/ | Office | Cardiology | Silvia, | | | 2019 | Visit | | PARISA Vernon [address] | | | | | | [place], | | | | | | [place] [address] | | | | | | [phone] | | | | | | | | +--------+ + + + + | 05/21/ | Implant | Cardiology | Daljit Singletary, | Remote Device | | 2019 | Monitor | | [address] [facility] | Interrogation | | | | | [place], | (Primary Dx); | | | | | [place] [address] | Pacemaker; | | | | | [phone] | Sinoatrial node | | | | | | dysfunction (HCC) | | | | | | with symptomatic | | | | | | bradycardia | +--------+ + + + + documented as of this encounter Visit Diagnoses Not on filedocumented in this encounter"
--- OUTSIDE RECORDS SUMMARY | ~2020-04-15 | XMS | Encounter Summary ---
Demographics + + + | Address | [address] | | | [place] [address] | + + + | Home Phone [...] Team Providers + +------+ + | Care Door Framer Name | Role | Phone | [...] + + | 06/06/ | Office | [facility] | Silvia, | Essential | | 2019 | Visit | CARDIOLOGY [address] | PARISA [place] [address] | hypertension | | | | [place], | [place], | (Primary Dx); | | | | [place] [address] | [place] [address] | Sinoatrial node | | | | [phone] | [phone] | dysfunction (HCC) | | | | | | with symptomatic | | | | | | bradycardia; | | | | | | Symptomatic PVCs; | | | | | | Tachycardia; | | | | | | Coronary artery | | | | | | disease involving | | | | | | chickaloon coronary | | | | | | artery of chickaloon | | | | | | heart [...] encounter Patient Instructions Patient Instructions Julia Allen, Insulation Cupola Charger - 06/06/2019 2:15 PM PDT1. Take a [...] of -critical coronary artery dise ase involving chickaloon coronary artery of chickaloon heart without angina pectoris, essential hype rtension, [...] was seen in the emergency department at [facility] in [place] due to chest pain, no medication changes at that time. On 06/02/2019 he was seen here in the [facility] department with chest pain, irregular heart [...] Preventative health care Coronary artery disease involving chickaloon coronary artery of chickaloon heart without angina pectoris Cannabis abuse, daily [...] 3RD DOSE, CALL 911 100 tablet 3 Angie-3 Fatty Acids (SALMON OIL-1000 PO) CAPS, one capsule by mouth daily twice daily ondansetron (ZOFRAN ODT) 4 mg disintegrating tablet Take 4 mg by mouth every 8 hours as needed for Nausea. ONE TOUCH DELICA LANCETS [facility] [...] BNP 48 06/02/2019 I reviewed records from [facility] for emergency department visit o n 06/02/2019 which is summarized in the HPI. RESULTS- I reviewed reports from [facility]: Ct Abdomen Pelvis W Contrast Result [...] ASSESSMENT: 1. Non-critical Coronary artery disease involving chickaloon coronary artery of chickaloon heart [facility] angina pectoris: [...] performed by Dr Juan Diego Gambino at [facility] on 01/30/2013.Patient had spontaneous PVC'sfr om [...] to go back in 3 days to [place] for an attempt of ablation under general [...] a normal stable device function. Estimated remaining [facility] taylor longevity is 3.5 years. [...] visit, or sooner with concerns. Julia Clemente, Insulation Cupola Charger am acting as a scribe on behalf of, and in the presenc e of PARISA Lomas. - Reji Church 06/06/2019 15:10 Janeen Clemente ARNP, personally performed the services described in this documentati on, as scribed in my presence and it is both accurate and complete. -PARISA Lomas 06/06/2019 Portions of this chart may have been created with OpenText voice recognition software. Occasi onal wrong-word or [...] | | | | | | [place] [address] | | | | | | [phone] | | | | | | | | +--------+ + + + + | 05/01/ | Procedure | Cardiology | | | 2019 | visit | | | | +--------+ + + + + | 05/01/ | Office | Cardiology | Silvia, | | | 2019 | Visit | | PARISA Vernon [address] | | | | | | [place], | | | | | | [place] [address] | | | | | | [phone] | | | | | | | | +--------+ + + + + | 05/21/ | Implant | Cardiology | Sydni Singletary, | Remote Device | | 2019 | Monitor | | [address] [facility] | Interrogation | | | | | [place], | (Primary Dx); | | | | | [place] [address] | Pacemaker; | | | | | [phone] | Sinoatrial node | | | | [...] MD | | | | | | ([id number]) on 06/06/2019 | | | | | [...] + + | Coronary artery disease involving chickaloon coronary artery of chickaloon heart without | | angina pectoris | + + | Syncope, unspecified syncope type | + + | Ascending thoracic aortic aneurysm (HCC) Thoracic aneurysm without mention of rupture | + + | Hyperlipidemia, mixed Mixed hyperlipidemia | + + documented in this encounter
--- OUTSIDE RECORDS SUMMARY | ~2020-04-15 | XMS | Encounter Summary ---
Demographics + + + | Address | [address] | | | [place] [address] | + + + | Home Phone [...] Team Providers + +------+ + | Care Station Jailer Name | Role | Phone | + [...] + + | 02/21/ | Office | [facility] | Silvia, | Coronary artery | | 2019 | Visit | CARDIOLOGY [address] | [place] [address] | disease involving | | | | [place], | [place], | [place] coronary | | | | [place] [address] | [place] [address] | artery of [place] | | | | [phone] | [phone] | heart without angina | | | [...] of non-critical coronary artery d isease involving [place] coronary artery of [place] heart without angina pectoris, essential h ypertension, [...] stay active. 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 He has not had any [...] Preventative health care Coronary artery disease involving [place] coronary artery of [place] heart without angina pectoris Cannabis abuse, daily [...] 3RD DOSE, CALL 911 100 tablet 3 [place]-3 Fatty Acids (SALMON OIL-1000 PO) CAPS, one capsule by mouth daily twice daily ondansetron (ZOFRAN ODT) 4 mg disintegrating tablet Take 4 mg by mouth. ONE TOUCH DELICA LANCETS [facility] [...] was found Confirmed by ANGELA MARADIAGA MD ([id number]) on 01/03/2019 8:10:39 PM LAB RESULTS reviewed during visit today primarily from [facility]: LIPID Lab Results Component Value Date [...] BNP 15 01/02/2019 I reviewed records from [facility] for angiogram results on 019 which is summarized in the HPI. RESULTS- I reviewed reports from [facility]: No results found. Left heart catheterization [...] ASSESSMENT: 1. Non-critical Coronary artery disease involving [place] coronary artery of [place] heart [facility] angina pectoris: A.Normal exercise sestamibi stress test [...] Symptoms with moderate exertion of t he [place] [employer] functional class. Heart failure stage [...] performed by Dr Juan Diego Gambino at [facility] on 01/30/2013.Patient had spontaneous PVC's fro [...] of presyncope [facility] thought to have vasovagal symptoms. B. Today, [...] this chart may have been created with [employer] voice recognition software. Occasi onal wrong-word or [...] W | | | | | | [place], | | | | | | [place] [address] | | | | | | [phone] | | | | | | | | +--------+ + + + + | 05/01/ | Procedure | Cardiology | | | | 2019 | visit | | | | +--------+ + + + + | 05/01/ | Office | Cardiology | Silvia, | | | 2019 | Visit | | [address] | | | | | | [place], | | | | | | [place] [address] | | | | | | [phone] | | | | | | | | +--------+ + + + + | 05/21/ | Implant | Cardiology | Daljit Singletary, | Remote Device | | 2019 | Monitor | | [address] [facility] | Interrogation | | | | | [place], | (Primary Dx); | | | | | [place] [address] | Pacemaker; | | | | | [phone] | Sinoatrial node | | | | | | dysfunction (HCC) | | | | | | with symptomatic | | | | | | bradycardia | +--------+ + + + + documented as of this encounter Visit Diagnoses + + | Diagnosis | + + | Coronary artery disease involving [place] coronary artery of [place] heart without | | angina pectoris - Primary | + + | Symptomatic PVCs Other premature beats | + + | Essential hypertension Unspecified essential hypertension | + + documented in this encounter
--- OUTSIDE RECORDS SUMMARY | ~2020-04-15 | XMS | Encounter Summary ---
Demographics + + + | Address | [address] | | | [place] [address] | + + + | Home Phone [...] Providers + +------+ + | Care Senior C Web Developer Name | Role | Phone [...] + + | 07/01/ | Hospital | [facility] | Scotty Galdamez, | DDD (degenerative | | 2018 | Encounter | MED CTR XRAY [address] | BEHAVIORAL SCIENCE CHAIR [address] | disc disease), | | | | [place] | [address] | lumbar; Chronic | | | | [place] [address] | [place] [address] | left-sided low back | | | | [phone] | [phone] | pain with left-sided | | | [...] + + + +---------+ + + | [place]-3 Fatty | CAPS, one capsule by | [...] One time | | 0 | | 05/22/201 | | Methylsulfonylmethan | daily. | | [...] | | | | | | [place] [address] | | | | | | [phone] | | | | | | | | +--------+ + + + + | 05/01/ | Procedure | Cardiology | | | | 2019 | visit | | | | +--------+ + + + + | 05/01/ | Office | Cardiology | Silvia, | | | 2019 | Visit | | [address] | | | | | | [place], | | | | | | [place] [address] | | | | | | [phone] | | | | | | | | +--------+ + + + + | 05/21/ | Implant | Cardiology | SunshinecherelleDaljit, | Remote Device | | 2019 | Monitor | | [address] [facility] | Interrogation | | | | | [place], | (Primary Dx); | | | | | [place] [address] | Pacemaker; | | | | | [phone] | Sinoatrial node | | | | [...]
--- OUTSIDE RECORDS SUMMARY | ~2020-04-15 | XMS | Encounter Summary ---
Demographics + + + | Address | [address] | | | [place] [address] | + + + | Home Phone [...] Providers + +------+ + | Care Food Checkers And Cashiers Supervisor Name | Role | Phone | [...] + + | 06/04/ | Hospital | [facility] | Sariah, | Cervical spinal | | 2016 | Encounter | MED CTR XRAY [address] | [place] Mason, ANESTHESIA ASSOCIATE [address] | stenosis | | | | [place] | [address] | | | | | [place] [address] | [place] [address] | | | | | [phone] | [phone] | | | | | | | [...] + + + +---------+ + + | [place]-3 Fatty | CAPS, one capsule by [...] | | | | | | [place] [address] | | | | | | [phone] | | | | | | | | +--------+ + + + + | 05/01/ | Procedure | Cardiology | | | | 2019 | visit | | | | +--------+ + + + + | 05/01/ | Office | Cardiology | Silvia, | | | 2019 | Visit | | PARISA Vernon [address] | | | | | | [place], | | | | | | [place] [address] | | | | | | [phone] | | | | | | | | +--------+ + + + + | 05/21/ | Implant | Cardiology | Daljit Singletary, | Remote Device | | 2019 | Monitor | | [facility] | Interrogation | | | | | [place], | (Primary Dx); | | | | | [place] [address] | Pacemaker; | | | | | [phone] | Sinoatrial node | | | | | | dysfunction ([facility]) | | | | | [...] | | | | | thecal, Starting [facility] 06/04/16 at | | | | | [...]
--- OUTSIDE RECORDS SUMMARY | ~2020-04-15 | XMS | Encounter Summary ---
Demographics + + + | Address | [address] | | | [place] [address] | + + + | Home Phone [...] Team Providers + +------+ + | Care Ceramic Research Engineer Name | Role | Phone [...] abdominal | [address] | [address], | | | | | pain | [address] | [address] | | | | | Chronic pain | [address] | [place], | | | | | syndrome | [place], [place] | [place] [address] | | | | | Procedures | [address] | Phone: | | | | | Office Visit | Phone: | [phone] | | | | | | [phone] | Fax: | | | | | | Fax: | [phone] | | | | | | [phone] | | +--------+--------+ + + + + Encounter Details +--------+---------+ + + + | Date | Type | Department | Care Team | Description | +--------+---------+ + + + | 12/02/ | Office | [facility] [place] | Emmanuel Daniel MD | Diarrhea, | | 2018 | Visit | GASTROENTEROLOGY | [address], [place] | unspecified type | | | | [address] | [address] [place], [place] | (Primary Dx); Weight | | | | [address] [place], [place] | [address] | loss, | | | | [address] | | unintentional; | | | | [phone] | | Generalized | | | | [...] | | | | | | [place] [address] | | | | | | [phone] | | | | | | | | +--------+ + + + + | 05/01/ | Procedure | Cardiology | | | | 2019 | visit | | | | +--------+ + + + + | 05/01/ | Office | Cardiology | Silvia, | | | 2019 | Visit | | PARISA [place] [address] | | | | | | [place], | | | | | | [place] [address] | | | | | | [phone] | | | | | | | | +--------+ + + + + | 05/21/ | Implant | Cardiology | Daljit Singletary, | Remote Device | 2019 | Monitor | | [address] [facility] | Interrogation | | | | | [address], | (Primary Dx); | | | | | [place] [address] | Pacemaker; | | | | | [phone] | Sinoatrial node | | | | [...]
--- OUTSIDE RECORDS SUMMARY | ~2020-04-15 | XMS | Encounter Summary ---
Demographics + + + | Address | [address] | | | [place] [address] | + + + | Home Phone [...] Team Providers + +------+ + | Care Plug Overwrap Machine Tender Name | Role | Phone | + +------+ + PCP | Unavailable | + +------+ + Encounter Details +--------+ + + + + | Date | Type | Department | Care Team | Description | +--------+ + + + + | 08/26/ | Hospital | [facility] | | | | 2009 | Encounter | MED CTR LABORATORY | | | | | | [address] | | | | | | [place] | | | | | | [address] | | | | | | [phone] | | | +--------+ + + + [...] | | | | | | [place] [address] | | | | | | [phone] | | | | | | | [...] | | | | | | [place] [address] | | | | | | [phone] | | | | | | | | +--------+ + + + + | 05/21/ | Implant | Cardiology | Daljit Singletary, | Remote Device | 2019 | Monitor | | [address] [place] | Interrogation | | | | | [place], | (Primary Dx); | | | | | [place] [address] | Pacemaker; | | | | | [phone] | Sinoatrial node | | | | | | dysfunction (HCC) | | | | | | with symptomatic | | | | | | bradycardia | +--------+ + + + + documented as of this encounter Visit Diagnoses Not on filedocumented in this encounter"
--- OUTSIDE RECORDS SUMMARY | ~2020-04-15 | XMS | Encounter Summary ---
Demographics + + + | Address | [address] | | | [place] [address] | + + + | Home Phone [...] Providers + +------+ + | Care Automatic Steel Tie Adjuster Name | Role | Phone | [...] 2014 | | CARDIOLOGY [address] | JOINER HELPER [address] | | | | | [place], | [place], [place] | | | | | [place] [address] | [address] | | | | | [phone] | | | +--------+ + + + [...] W | | | | | | [place], | | | | | | [place] [address] | | | | | | [phone] | | | | | | | | +--------+ + + + + | 05/01/ | Procedure | Cardiology | | | | 2019 | visit | | | | +--------+ + + + + | 05/01/ | Office | Cardiology | Silvia, | | | 2019 | Visit | | [address]ISA [address] | | | | | | [place], | | | | | | [place] [address] | | | | | | [phone] | | | | | | | | +--------+ + + + + | 05/21/ | Implant | Cardiology | Daljit Singletary, | Remote Device | | 2019 | Monitor | | [address] [facility] | Interrogation | | | | | [place], | (Primary Dx); | | | | | [place] [address] | Pacemaker; | | | | | [phone] | Sinoatrial node | | | | | | dysfunction (HCC) | | | | | | with symptomatic | | | | | | bradycardia | +--------+ + + + + documented as of this encounter Visit Diagnoses Not on filedocumented in this encounter"
--- OUTSIDE RECORDS SUMMARY | ~2020-04-15 | XMS | Encounter Summary ---
Demographics + + + | Address | [address] | | | [place] [address] | + + + | Home Phone [...] Providers + +------+ + | Care Talent Engineer Name | Role | Phone | + +------+ + | Kirk French MD | PCP | | + +------+ + Reason for Visit +--------+ + | Reason | Comments | +--------+ + | Triage | chronic IBS | +--------+ + Encounter Details +--------+ + + + + | Date | Type | Department | Care Team | Description | +--------+ + + + + | 12/19/ | Telephone | [facility] | Kirk French | Triage (chronic IBS) | | 2020 | | [facility] | MD Brea [address] | | | | | [facility] [address] | | | | | [address] | [place] [address] | | | | | [place], [place] | [phone] | | | | | [address] | | | | | | [phone] | | | +--------+ + + + [...] | | | | | | [place] [address] | | | | | | [phone] | | | | | | | | +--------+ + + + + | 05/01/ | Procedure | Cardiology | | | | 2019 | visit | | | | +--------+ + + + + | 05/01/ | Office | Cardiology | Silvia, | | | 2019 | Visit | | PARISA Vernon [address] | | | | | | [place], | | | | | | [place] [address] | | | | | | [phone] | | | | | | | | +--------+ + + + + | 05/21/ | Implant | Cardiology | Daljit Singletary, | Remote Device | 2019 | Monitor | | [address] [facility] | Interrogation | | | | | [place], | (Primary Dx); | | | | | [place] [address] | Pacemaker; | | | | | [phone] | Sinoatrial node | | | | | | dysfunction (HCC) | | | | | | with symptomatic | | | | | | bradycardia | +--------+ + + + + documented as of this encounter Visit Diagnoses Not on filedocumented in this encounter"
--- OUTSIDE RECORDS SUMMARY | ~2020-04-15 | XMS | Encounter Summary ---
Demographics + + + | Address | [address] | | | [place] [address] | + + + | Home Phone [...] Team Providers + +------+ + | Care Three Dimensional Art Instructor Name | Role | Phone | [...] + + | 05/15/ | Office | [facility] UROLOGY | Matthew Uriarte | Kidney stones | | 2019 | Visit | [address] | MD Tawanna [address] | (Primary Dx) | | | | [place] | [address] [place] | | | | | [address] | [address] | | | | | [phone] | | | +--------+---------+ + + + [...] [employer] Peptic ulcer disease Premature ventricular contraction [facility] health care 06/26/2013 LAST PSA:12/16/2010 RESULT:0.14 LAST [...] CV LHC; Surgeon: Daljit Singletary MD; Location: [facility] CV LAB CARDIAC CATHERIZATION N/A 01/25/2019 Procedure: CV Cor Angio; Surgeon: Daljit Singletary MD; Location: [facility] CV LAB COLONOSCOPY N/A 12/24/2017 Procedure: COLONOSCOPY; Surgeon: Emmanuel Daniel MD; Location: [facility] MEDICAL PROCEDURE UNIT COLONOSCOPY N/A 01/05/2019 Procedure: COLONOSCOPY; Surgeon: Emmanuel Daniel MD; Location: [facility] MEDICAL PROCEDURE UNIT EGD 12/24/2017 HARDWARE [...] Procedure: EGD; Surgeon: Emmanuel Daniel MD; Location: [facility] MEDICAL PROCEDURE UNIT UPPER GASTROINTESTINAL ENDOSCOPY N/A 01/05/2019 Procedure: EGD; Surgeon: Emmanuel Daniel MD; Location: [facility] MEDICAL PROCEDURE UNIT URETEROSCOPY Left 04/13/2019 Procedure: Cystoscopy, Left ureteroscopy with laser lithotripsy, Left ureteral stent place ment; Surgeon: Matthew Uriarte MD; Location: [facility] MAIN OR VASECTOMY Family History: Family [...] 911, Disp: 100 ta blet, Rfl: 3 [place]-3 Fatty Acids (SALMON OIL-1000 PO), CAPS, one [...] pH, Urine 8.0 5.0 - 8.0 Specific Carr 1.008 1.001 - 1.030 Protein, Urine Negative [...] have not thoroughly proofread this note, and international logistics manager errors are very likely to occur. CC: Kirk French MD documented in this encounter Plan of Treatment +--------+ + + + + | Date | Type | Specialty | Care Team | Description | +--------+ + + + + | 05/01/ | Appointment | Radiology | Silvia, | | | 2019 | | | PARISA [address] | | | | | | [place], | | | | | | [place] [address] | | | | | | [phone] | | | | | | | | +--------+ + + + + | 05/01/ | Procedure | Cardiology | | | | 2019 | visit | | | | +--------+ + + + + | 05/01/ | Office | Cardiology | Silvia, | | | 2019 | Visit | | PARISA Vernon [address] | | | | | | [place], | | | | | | [place] [address] | | | | | | [phone] | | | | | | | | +--------+ + + + + | 05/21/ | Implant | Cardiology | Daljit Singletary, | Remote Device | 2019 | Monitor | | MD [address] | Interrogation | | | | | [place], | (Primary Dx); | | | | | [place] [address] | Pacemaker; | | | | | [phone] | Sinoatrial node | | | | [...]
--- OUTSIDE RECORDS SUMMARY | ~2020-04-15 | XMS | Encounter Summary ---
Demographics + + + | Address | [address] | | | [place] [address] | + + + | Home Phone [...] Team Providers + +------+ + | Care Cover Assembler Name | Role | Phone | [...] + + | 04/12/ | Telephone | [facility] | Daljit Singletary, | Other (issues with | | 2017 | | CARDIOLOGY [address] | MD [address] [place] | low blood pressure | | | | [place], | [place], | and dizziness) | | | | [place] [address] | [place] [address] | | | | | [phone] | [phone] | | | | | | | [...] | | | | | | [place] [address] | | | | | | [phone] | | | | | | | | +--------+ + + + + | 05/01/ | Procedure | Cardiology | | | | 2020 | visit | | | | +--------+ + + + + | 05/01/ | Office | Cardiology | Silvia, | | | 2019 | Visit | | PARISA [address] | | | | | | [place], | | | | | | [place] [address] | | | | | | [phone] | | | | | | | | +--------+ + + + + | 05/21/ | Implant | Cardiology | Daljit Singletary, | Remote Device | 2019 | Monitor | | [address] [place] | Interrogation | | | | | [place], | (Primary Dx); | | | | | [place] [address] | Pacemaker; | | | | | [phone] | Sinoatrial node | | | | | | dysfunction (HCC) | | | | | | with symptomatic | | | | | | bradycardia | +--------+ + + + + documented as of this encounter Visit Diagnoses Not on filedocumented in this encounter"
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
--- OUTSIDE RECORDS SUMMARY | ~2020-04-15 | XMS | Encounter Summary ---
Demographics + + + | Address | [address] | | | [place] [address] | + + + | Home Phone [...] Team Providers + +------+ + | Care Pre Assembly Wirer Name | Role | Phone | + +------+ + PCP | Unavailable | + +------+ + Encounter Details +--------+ + + + + | Date | Type | Department | Care Team | Description | +--------+ + + + + | 06/17/ | Hospital | [facility] | | | | 2007 | Encounter | MED CTR EMERGENCY | | | | | | [place] [address] | | | | | | [place] | | | | | | [address] | | | | | | [phone] | | | +--------+ + + + [...] | | | | | | [place] [address] | | | | | | [phone] | | | | | | | | +--------+ + + + + | 05/01/ | Procedure | Cardiology | | | | 2019 | visit | | | | +--------+ + + + + | 05/01/ | Office | Cardiology | [place], | | | 2019 | Visit | | [address] | | | | | | [place], | | | | | | [place] [address] | | | | | | [phone] | | | | | | | | +--------+ + + + + | 05/21/ | Implant | Cardiology | Daljit Singletary, | Remote Device | 2019 | Monitor | | [address] [place] | Interrogation | | | | | [place], | (Primary Dx); | | | | | [place] [address] | Pacemaker; | | | | | [phone] | Sinoatrial node | | | | | | dysfunction (HCC) | | | | | | with symptomatic | | | | | | bradycardia | +--------+ + + + + documented as of this encounter Visit Diagnoses Not on filedocumented in this encounter"
--- OUTSIDE RECORDS SUMMARY | ~2020-04-15 | XMS | Encounter Summary ---
Demographics + + + | Address | [address] | | | [place] [address] | + + + | Home Phone [...] Team Providers + +------+ + | Care Drafter Civil (Cad) Name | Role | Phone | + [...] | | | DDD | Scotty C, MAINTENANCE CUSTODIAN | [facility] | | | | | (degenerativ | [address] [facility] | | | | | e disc | [facility] | MEDICAL | | | | | disease), | [address] | CENTER [address] | | | | | lumbar | B | [place] | | | | | Chronic | [place], [place] | [place], | | | | | left-sided | [address] | [place] [address] | | | | | low back | Phone: | Phone: | | | | | pain with | [phone] | [phone] | | | | | left-sided | Fax: | Fax: | | | | | sciatica | [phone] | [phone] | | | | | History of [...] | | | DDD | Scotty C, MAINTENANCE CUSTODIAN | [address] | | | | | (degenerativ | [address] | [place], | | | | | e disc | [facility] | [place] [address] | | | | | disease), | [address] | Phone: | | | | | lumbar | B | [phone] | | | | | Chronic | [place], [place] | Fax: | | | | | left-sided | [address] | [phone] | | | | | low back | Phone: | | | | | | pain with | [phone] | | | | | | left-sided | Fax: | | | | | | sciatica | [phone] | | | | | | History [...] + + | 07/01/ | Hospital | [facility] | Scotty Galdamez, | DDD (degenerative | | 2018 | Encounter | MED CTR [address] | MAINTENANCE CUSTODIAN [address] [facility] | disc disease), | | | | [place], | [address] | lumbar; Chronic | | | | [place] [address] | [place] [address] | left-sided low back | | | | [phone] | [phone] | pain with left-sided | | | [...] + + + +---------+ + + | [place]-3 Fatty | CAPS, one capsule by | [...] W | | | | | | [place], | | | | | | [place] [address] | | | | | | [phone] | | | | | | | | +--------+ + + + + | 05/01/ | Procedure | Cardiology | | | | 2019 | visit | | | | +--------+ + + + + | 05/01/ | Office | Cardiology | [place], | | | 2019 | Visit | | [address] | | | | | | [place], | | | | | | [place] [address] | | | | | | [phone] | | | | | | | | +--------+ + + + + | 05/21/ | Implant | Cardiology | Daljit Singletary, | Remote Device | | 2020 | Monitor | | [address] [place] | Interrogation | | | | | [place], | (Primary Dx); | | | | | [place] [address] | Pacemaker; | | | | | [phone] | Sinoatrial node | | | | [...] + + | Performing | Address | City[facility]State[facility] | Phone Number | | [...]
--- OUTSIDE RECORDS SUMMARY | ~2020-04-15 | XMS | Encounter Summary ---
Demographics + + + | Address | [address] [place] [address] [address] | | | [place] [address] | + + + | Home Phone | | + + + | Preferred Language | Unknown | + + + | Marital Status | | + + + | Anabaptism Affiliation | Unknown | + + + | Race | White | + + + | Ethnic Group | Not or | + + + Author + + + | Author | [facility] | + + + | Organization | [facility] | + + + | Address | Unknown | + + + | Phone | Unavailable | + + + Support + + + + + | Name | Relationship | Address | Phone | + + + + + | Rachel Valencia | ELIEZER | [place] | | | | | [address] | | + + + + + Care Team Providers + +------+ + | Care Training And Development Coordinator Name | Role | Phone | [...] | +--------+ + + + + | 11/28/ | Abstract | [facility] | Bridgette Rios, | Medical Records | | 2020 | | [facility] [address] | MD [address] | Review | | | | [address] | [facility] [place] | | | | | Mailcode: [place] | [address] | | | | | for Health and | [phone] | | | | | [facility] [address] | | | | | | [place], [place] | | | | | | [address] | | | | | | [phone] | | | +--------+ + + + [...]
--- OUTSIDE RECORDS SUMMARY | ~2020-04-15 | XMS | Encounter Summary ---
Demographics + + + | Address | [address] | | | [place] [address] | + + + | Home Phone [...] Team Providers + +------+ + | Care Ore Trimmer Name | Role | Phone | [...] Authorized | Specialty | | Diagnoses | Shanique French Harpal, | | | Services | | Chronic | Kirk Guidry, | [address] | | | Required | | pain | [address] | Delaney [address]ane | | | | | syndrome | [address] | [place], | | | | | | [address] | [place] [address] | | | | | | [place], [place] | Phone: | | | | | | [address] | [phone] | | | | | | Phone: | Fax: | | | | | | [phone] | [phone] | | | | | | Fax: | | | | | | | [phone] | | + + + + + + + Reason for Visit + + + | Reason | Comments | + + + | Annual Exam | | + + + Encounter Details +--------+---------+ + + + | Date | Type | Department | Care Team | Description | +--------+---------+ + + + | 01/11/ | Office | [facility] | Prabhakarmaria doloresKirk | Irritable bowel | | 2019 | Visit | [facility] | MD Brea [address] | syndrome, | | | | [facility] [address] | unspecified type | | | | [address] | [place] [address] | (Primary Dx); | | | | [place], [place] | [phone] | Chronic pain | | | | [address] | | syndrome; Smoker; | | | | [phone] | | Fatigue, unspecified | | | [...] CL 106 06/02/2019 1907 CO2 25 06/02/2019 1907 GLU 94 06/02/2019 1907 BUN 15 06/02/2019 1907 CREA 0.92 06/02/2019 190 ANIONGAP 8 06/02/2019 [...] PLT 169 06/02/2019 No results found for: [id number] No results found for: FOLATE No results [...] Plan and Recommendations: 1. [facility] in [place] for stool studies as outlined above 2. If negative and symptoms persist, recommend capsule endoscopy (this could be completed b y local spout liner or he could return to [place] for this test) 3. Nortryptiline 25mg q HS with instruction to titrate to 50mg q HS after 2 weeks if tolera kevin Follow-Up: with local spout liner Counseling Time: I spent a total of 35 minutes with this patient, of which greater than 50% of the time was spent in counseling. Specific issues that were discussed included a review of the disease, diagnostic tools that help in our management plans for the patient's chronic diarrhea, abdominal cramping and weight loss and goals for treatment. Bridgette Rios MD Quality Control Inspector [facility] Many co and concerns: Co bleeding Co weak Co tired Co diarrhea Co cramps Co weight changes Co 14 stool in 2 hours this AM Took 8 imodium and 2 lomotil Not taking nortriptyline as prescribed by his GI Also wants a script for hemorrhoids Pending pill endoscopy and colonoscopy May be interested in [place] if no results States was down 210# now 267 Co bedridden and can't leave the house Co incontinence States many ER visits, once a week in [place], tx with IVF and dilaudid Conc re ppm Conc re r shoulder tkr and need for mri Issues with Klonopin Was arrested for DUI, self dc 08/14, had difficult withdrawal ofr 2 weeks Walks daily now for stress and exercise 1-5 miles a day Plan: ASSESSMENT AND PLAN: 1. Approximately 40 minutes of time on this gentleman's case noes-vs-pkqe, a lot of it was reviewing outside [...] atypica l. Followed by Dr. Rios at [facility]. I reviewed her notes in the patient's [...] Klonopin. Sounds like a particularly miserable time, slicku olgaely he got through it safely. 8. Most [...] W | | | | | | [place], | | | | | | [place] [address] | | | | | | [phone] | | | | | | | | +--------+ + + + + | 05/01/ | Procedure | Cardiology | | | | 2019 | visit | | | | +--------+ + + + + | 05/01/ | Office | Cardiology | Silvia, | | | 2019 | Visit | | [address] | | | | | | [place], | | | | | | [place] [address] | | | | | | [phone] | | | | | | | | +--------+ + + + + | 05/21/ | Implant | Cardiology | Daljit Singletary, | Remote Device | | 2019 | Monitor | | MD Sim [place] | Interrogation | | | | | [place], | (Primary Dx); | | | | | [place] [address] | Pacemaker; | | | | | [phone] | Sinoatrial node | | | | [...] pain | Ordered: 01/11/2020 | | to [facility] Pain | Referral | e | syndrome [...] health care Routine general medical examination at [facility] | | facility | + + | [...] | serious comorbidity present | + + documented in this encounter
--- OUTSIDE RECORDS SUMMARY | ~2020-04-15 | XMS | Encounter Summary ---
Demographics + + + | Address | [address] | | | [place] [address] | + + + | Home Phone [...] Team Providers + +------+ + | Care Division Toll Wire Chief Name | Role | Phone | [...] + | 06/02/ | Telephone | [facility] [place] | Daljit Singletary, | Other (symptoms) | | 2019 | | CARDIOLOGY [address] | MD [address] [place] | | | | | [place], | [place], | | | | | [place] [address] | [place] [address] | | | | | [phone] | [phone] | | | | | | | [...] | | | | | | [place] [address] | | | | | | [phone] | | | | | | | | +--------+ + + + + | 05/01/ | Procedure | Cardiology | | | | 2019 | visit | | | | +--------+ + + + + | 05/01/ | Office | Cardiology | Silvia, | | | 2019 | Visit | | [address] | | | | | | [place], | | | | | | [place] [address] | | | | | | [phone] | | | | | | | | +--------+ + + + + | 05/21/ | Implant | Cardiology | Daljit Singletary, | Remote Device | 2019 | Monitor | | MD [address] | Interrogation | | | | | [place], | (Primary Dx); | | | | | [place] [address] | Pacemaker; | | | | | [phone] | Sinoatrial node | | | | | | dysfunction (HCC) | | | | | | with symptomatic | | | | | | bradycardia | +--------+ + + + + documented as of this encounter Visit Diagnoses Not on filedocumented in this encounter"
--- OUTSIDE RECORDS SUMMARY | ~2020-04-15 | XMS | Encounter Summary ---
Demographics + + + | Address | [address] | | | [place] [address] | + + + | Home Phone [...] Team Providers + +------+ + | Care Operator Engineer Name | Role | Phone | + +------+ + PCP | Unavailable | + +------+ + Encounter Details +--------+ + + + + | Date | Type | Department | Care Team | Description | +--------+ + + + + | 06/03/ | Hospital | [facility] | | | | 2008 | Encounter | MED CTR EMERGENCY | | | | | | [place] [address] | | | | | | [place] | | | | | | [address] | | | | | | [phone] | | | +--------+ + + + [...] | | | | | | [place] [address] | | | | | | [phone] | | | | | | | [...] | | | | | | [place] [address] | | | | | | [phone] | | | | | | | | +--------+ + + + + | 05/21/ | Implant | Cardiology | Daljit Singletary, | Remote Device | 2019 | Monitor | | [address] [place] | Interrogation | | | | | [place], | (Primary Dx); | | | | | [place] [address] | Pacemaker; | | | | | [phone] | Sinoatrial node | | | | | | dysfunction (HCC) | | | | | | with symptomatic | | | | | | bradycardia | +--------+ + + + + documented as of this encounter Visit Diagnoses Not on filedocumented in this encounter"
--- OUTSIDE RECORDS SUMMARY | ~2020-04-15 | XMS | Encounter Summary ---
Demographics + + + | Address | [address] | | | [place] [address] | + + + | Home Phone [...] Team Providers + +------+ + | Care International Controller Name | Role | Phone | + [...] + + | 08/29/ | [facility] | [facility] | [place]via, | Essential | | 2015 | Visit | CARDIOLOGY [address] | [address] | hypertension | | | | [place], | [place], | (Primary Dx); | | | | [place] [address] | [place] [address] | Coronary artery | | | | [phone] | [phone] | disease involving | | | | | | [place] coronary | | | | | | [...] was seen in the emergency room at [facility] on 08/23/20 15 and the ER physician reviewed his chart saying that there were 2 ultras[facility] both of them are clear of DVT but reveal some venous insufficiency. Today, arian ent tells me that he started having swelling in both his feet within a week when he got to [facility]. He had extensive traveling. He [...] Preventative health care Coronary artery disease involving [place] coronary artery without angina pectoris Cannabis abuse, [...] by mouth every evening. 90 tablet 3 [facility] [...] 3rd dose, call 911 100 tablet 3 [place]-3 Fatty Acids (SALMON OIL-1000 PO) CAPS, one capsule by mouth daily twice daily ONE TOUCH DELICA LANCETS [facility] Check glucose as needed for hypoglycemia 100 [...] Daily. to reduce urinary frequenc y Lot #[id number], exp 07/2016 (Patient taking differently: Take 8 mg by mouth Daily. PATIENT STA YOSELIN NO LONGER TAKING THIS MEDICATION. STATED ON 08/29/2015. to reduce urinary frequency Lot #[id number], exp 07/2016) 21 capsule 0 Specialty Vitamins [...] PLTEX 163 07/26/2014 I reviewed records from [facility] for emergency department visit o n 08/23/2015. [...] brought reports to the emergency room at [facility] and according to the not es they [...] arrhythmia performed by Dr. Gambino at [facility] on 01/30/2013. Patient had spontaneous PVCs from [...] to go back in 3 days to [place] for an attempt of ablation under general [...] dizziness. He is in class I-II of [place] [employer] functional class. T here are [...] this chart may have been created with [employer]) voice recognition software. Occasi onal wrong-word or [...] W | | | | | | [place], | | | | | | [place] [address] | | | | | | [phone] | | | | | | | | +--------+ + + + + | 05/01/ | Procedure | Cardiology | | | | 2019 | visit | | | | +--------+ + + + + | 05/01/ | Office | Cardiology | Silvia, | | | 2019 | Visit | | [address] | | | | | | [place], | | | | | | [place] [address] | | | | | | [phone] | | | | | | | | +--------+ + + + + | 05/21/ | Implant | Cardiology | Sydni Singletary, | Remote Device | 2019 | Monitor | | MD Sim [place] | Interrogation | | | | | [place], | (Primary Dx); | | | | | [place] [address] | Pacemaker; | | | | | [phone] | Sinoatrial node | | | | [...] the | | | | PDT | [place] coronary | results section. | | | [...] HISTORY: DVT. COMPARISON: None. TECHNIQUE: Compression | [facility] | | sonography was performed from the groin through the popliteal fossa | [facility] | | in both lower [...] conveyed to the ordering provider, by the salesperson used cars, | | | immediately following the exam. [...] to the ordering provider, by the | |salesperson used cars, immediately following the exam. | | | | | |Dictated and Signed by: Emmanuel Gibbons MD | | Electronically signed: 08/29/2015 3:25 PM | + + + + + + + | Performing | Address | City/State/Zipcode | Phone Number | | Organization | | | | + + + + + | [facility] | [address] | [place] | [phone] | | [facility] | | [address] | | | - IMAGING | | [...] MD | | | | | | ([id number]) on 08/29/2015 | | | | | [...] + + | Coronary artery disease involving [place] coronary artery without angina pectoris | + + | DVT (deep venous thrombosis), bilateral | + + documented in this encounter
--- OUTSIDE RECORDS SUMMARY | ~2020-04-15 | XMS | Encounter Summary ---
Demographics + + + | Address | [address] | | | [place] [address] | + + + | Home Phone [...] Providers + +------+ + | Care Patient Intake Representative Name | Role | Phone | + +------+ + | Michael Amanda DO | PCP | | + +------+ + Encounter Details +--------+ + + + + | Date | Type | Department | Care Team | Description | +--------+ + + + + | 05/11/ | Hospital | [facility] | Conversion | Lumbago; | | 2013 | Encounter | [facility]ICAL CENTER XRAY | Transaction, | Postlaminectomy | | | | [address] | Provider Unknown | syndrome, cervical | | | | [place], [place] | | region; Cervicalgia | | | | [address] | (Fax) | | | | | [phone] | | | +--------+ + + + [...] + + + +---------+ + + | Cotter-3 Fatty | CAPS, one capsule by | [...] 1147 Date of Service: 05/11/141145 Status: Signed Police Worker: Christine Mcgraw Report called to Brittany morejon [...] W | | | | | | [place], | | | | | | [place] [address] | | | | | | [phone] | | | | | | | | +--------+ + + + + | 05/01/ | Procedure | Cardiology | | | | 2019 | visit | | | | +--------+ + + + + | 05/01/ | Office | Cardiology | Silvia, | | | 2019 | Visit | | [address] | | | | | | [place], | | | | | | [place] [address] | | | | | | [phone] | | | | | | | | +--------+ + + + + | 05/21/ | Implant | Cardiology | Daljit Singletary, | Remote Device | 2019 | Monitor | | MD Sim [place] | Interrogation | | | | | [place], | (Primary Dx); | | | | | [place] [address] | Pacemaker; | | | | | [phone] | Sinoatrial node | | | | [...] Note | + + | Kevin, Kalpesh Conversion - 07/07/2019 10:30 PM PDT [...]
--- OUTSIDE RECORDS SUMMARY | ~2020-04-15 | XMS | Encounter Summary ---
Demographics + + + | Address | [address] | | | [place] [address] | + + + | Home Phone [...] Team Providers + +------+ + | Care Pile Driving Technician Name | Role | Phone | [...] | CARDIOLOGY [address] | [address] [place] | Interrogation | | | | [place], | [place], | (Primary Dx); | | | | [place] [address] | [place] [address] | Presence of | | | | [phone] | [phone] | permanent cardiac | | | | [...] | | | | | | [place] [address] | | | | | | [phone] | | | | | | | | +--------+ + + + + | 05/01/ | Procedure | Cardiology | | | | 2019 | visit | | | | +--------+ + + + + | 05/01/ | Office | Cardiology | Silvia, | | | 2019 | Visit | | [address]ISA [address] | | | | | | [place], | | | | | | [place] [address] | | | | | | [phone] | | | | | | | | +--------+ + + + + | 05/21/ | Implant | Cardiology | Daljit Singletary, | Remote Device | | 2019 | Monitor | | [place] [address] [place] | Interrogation | | | | | [place], | (Primary Dx); | | | | | [place] [address] | Pacemaker; | | | | | [phone] | Sinoatrial node | | | | [...] + + | DEVICE | Routin | 11/20/2019 | Remote Device | Results for this [...] this encounter Results Device Interrogation - Remote (11/20/2019 11:59 PM PST) + + + | Narrative | Performed At | + + + | Daljit | [facility] | | MD Gemini 09/07/2019 11:11Date of Remote Interrogation: | | | 09/06/2019 Refer to Paceart documentation and remote PDF scanned into | | | [facility] for remote interrogation results. Data collected by Shabana Robledo | | | MONROE Lama, RN Presenting rhythm: Sinus tachycardia, atrial sensed | | | ventricular sensed with rate 104-112 beats. 1 mode switch episodes | | | accounting for <0.1% of the time.No episodes. PVC singles 466 | | | PVC singles 155/monthPVC runs 5 PVC | | | runs 2/monthHistogram fair. Battery longevity 17 months.Apparent | | | normal and stable device function.Device interrogation due in office | | | August 2019.Patient notified via voice message. | | |PVC singles 466 PVC singles 155/month | | |PVC runs 5 PVC runs 2/month | | |Histogram fair. Battery longevity 17 months. | | |Apparent normal and stable device function. | | |Device interrogation due in office August 2019. | | |Patient notified via voice message. | | | | | + + + + +---------+ + + | Performing | Address | City[facility]State[facility] | Phone Number | | [...]
--- OUTSIDE RECORDS SUMMARY | ~2020-04-15 | XMS | Encounter Summary ---
Demographics + + + | Address | [address] | | | [place] [address] | + + + | Home Phone [...] Team Providers + +------+ + | Care Utility Manager Name | Role | Phone | [...] | 03/02/ | Telephone | [facility] | Daljit Singletary, | Other | | 2013 | | CARDIOLOGY [address] | MD [address] [place] | | | | | [place], | [place], | | | | | [place] [address] | [place] [address] | | | | | [phone] | [phone] | | | | | | | [...] W | | | | | | [place], | | | | | | [place] [address] | | | | | | [phone] | | | | | | | | +--------+ + + + + | 05/01/ | Procedure | Cardiology | | | | 2019 | visit | | | | +--------+ + + + + | 05/01/ | Office | Cardiology | Silvia, | | | 2019 | Visit | | [address] | | | | | | [place], | | | | | | [place] [address] | | | | | | [phone] | | | | | | | | +--------+ + + + + | 05/21/ | Implant | Cardiology | Daljit Singletary, | Remote Device | 2019 | Monitor | | MD [address] [place] | Interrogation | | | | | [place], | (Primary Dx); | | | | | [place] [address] | Pacemaker; | | | | | [phone] | Sinoatrial node | | | | | | dysfunction (HCC) | | | | | | with symptomatic | | | | | | bradycardia | +--------+ + + + + documented as of this encounter Visit Diagnoses Not on filedocumented in this encounter"
--- OUTSIDE RECORDS SUMMARY | ~2020-04-15 | XMS | Encounter Summary ---
Demographics + + + | Address | [address] | | | [place] [address] | + + + | Home Phone [...] Team Providers + +------+ + | Care Publicity Consultant Name | Role | Phone | [...] + + | 08/23/ | Telephone | [facility] | AnshujohnsoncherelleDaljit, | Other (edema is | | 2015 | | CARDIOLOGY [address] | MD [address] | blood clots) | | | | [place], | [place], | | | | | [place] [address] | [place] [address] | | | | | [phone] | [phone] | | | | | | | [...] | | | | | | [place] [address] | | | | | | [phone] | | | | | | | | +--------+ + + + + | 05/01/ | Procedure | Cardiology | | | | 2019 | visit | | | | +--------+ + + + + | 05/01/ | Office | Cardiology | Silvia, | | | 2019 | Visit | | [address] | | | | | | [place], | | | | | | [place] [address] | | | | | | [phone] | | | | | | | | +--------+ + + + + | 05/21/ | Implant | Cardiology | Daljit Singletary, | Remote Device | | 2020 | Monitor | | [facility] | Interrogation | | | | | [place], | (Primary Dx); | | | | | [place] [address] | Pacemaker; | | | | | [phone] | Sinoatrial node | | | | | | dysfunction (HCC) | | | | | | with symptomatic | | | | | | bradycardia | +--------+ + + + + documented as of this encounter Visit Diagnoses Not on filedocumented in this encounter"
--- OUTSIDE RECORDS SUMMARY | ~2020-04-15 | XMS | Encounter Summary ---
Demographics + + + | Address | [address] | | | [place] [address] | + + + | Home Phone [...] Phone | + + +---------+ + | Mraia Isabel Sanchez | ECON | Unknown | | + + +---------+ + Care Team Providers + +------+ + | Care Zoo Veterinarian Name | Role | Phone | + [...] 2017 | | CARDIOLOGY [address] | CADDY/CADDIE SUPERVISOR [address] | | | | | [place], | [place], [place] | | | | | [place] [address] | [address] | | | | | [phone] | | | +--------+--------+ + + + [...] W | | | | | | [place], | | | | | | [place] [address] | | | | | | [phone] | | | | | | | | +--------+ + + + + | 05/01/ | Procedure | Cardiology | | | | 2019 | visit | | | | +--------+ + + + + | 05/01/ | Office | Cardiology | Silvia, | | | 2019 | Visit | | [address] | | | | | | [place], | | | | | | [place] [address] | | | | | | [phone] | | | | | | | | +--------+ + + + + | 05/21/ | Implant | Cardiology | Daljit Singletary, | Remote Device | | 2019 | Monitor | | [facility] | Interrogation | | | | | [place], | (Primary Dx); | | | | | [place] [address] | Pacemaker; | | | | | [phone] | Sinoatrial node | | | | | | dysfunction (HCC) | | | | | | with symptomatic | | | | | | bradycardia | +--------+ + + + + documented as of this encounter Visit Diagnoses Not on filedocumented in this encounter"
--- OUTSIDE RECORDS SUMMARY | ~2020-04-15 | XMS | Encounter Summary ---
Demographics + + + | Address | [address] | | | [place] [address] | + + + | Home Phone [...] Team Providers + +------+ + | Care Tub Attendant Name | Role | Phone | [...] + + | 08/19/ | Telephone | [facility] | [place]via, | Other (patient | | 2016 | | CARDIOLOGY [address] | [address] [address] | having issues with | | | | [place], | [place], | high blood pressure) | | | | [place] [address] | [place] [address] | | | | | [phone] | [phone] | | | | | | | [...] | | | | | | [place] [address] | | | | | | [phone] | | | | | | | | +--------+ + + + + | 05/01/ | Procedure | Cardiology | | | | 2019 | visit | | | | +--------+ + + + + | 05/01/ | Office | Cardiology | [place]via, | | | 2019 | Visit | | [address] | | | | | | [place], | | | | | | [place] [address] | | | | | | [phone] | | | | | | | | +--------+ + + + + | 05/21/ | Implant | Cardiology | Daljit Singletary, | Remote Device | 2019 | Monitor | | [address] | Interrogation | | | | | [place], | (Primary Dx); | | | | | [place] [address] | Pacemaker; | | | | | [phone] | Sinoatrial node | | | | | | dysfunction (HCC) | | | | | | with symptomatic | | | | | | bradycardia | +--------+ + + + + documented as of this encounter Visit Diagnoses Not on filedocumented in this encounter"
--- OUTSIDE RECORDS SUMMARY | ~2020-04-15 | XMS | Encounter Summary ---
Demographics + + + | Address | [address] | | | [place] [address] | + + + | Home Phone [...] Team Providers + +------+ + | Care Strain Technician Name | Role | Phone | + +------+ + PCP | Unavailable | + +------+ + Encounter Details +--------+ + + + + | Date | Type | Department | Care Team | Description | +--------+ + + + + | 09/24/ | [facility] | [facility] | Evan Gandara MD | | | 2005 | Encounter | MED CTR XRAY [address] | [address] [facility] | | | | | [place] | [place] | | | | | [place] [address] | [address] | | | | | [phone] | | | +--------+ + + + [...] | | | | | | [place] [address] | | | | | | [phone] | | | | | | | [...] | | | | | | [place] [address] | | | | | | [phone] | | | | | | | | +--------+ + + + + | 05/21/ | Implant | Cardiology | Daljit Singletary, | Remote Device | 2019 | Monitor | | MD [address] [place] | Interrogation | | | | | [place], | (Primary Dx); | | | | | [place] [address] | Pacemaker; | | | | | [phone] | Sinoatrial node | | | | | | dysfunction (HCC) | | | | | | with symptomatic | | | | | | bradycardia | +--------+ + + + + documented as of this encounter Visit Diagnoses Not on filedocumented in this encounter"
--- OUTSIDE RECORDS SUMMARY | ~2020-04-15 | XMS | Encounter Summary ---
Demographics + + + | Address | [address] | | | [place] [address] | + + + | Home Phone [...] Team Providers + +------+ + | Care Intern Retail Name | Role | Phone | + +------+ + PCP | Unavailable | + +------+ + Encounter Details +--------+ + + + + | Date | Type | Department | Care Team | Description | +--------+ + + + + | 06/23/ | [facility] | [facility] | Arthur Page MD | | | 2007 - | Encounter | MED CTR MED ONC | [address] [facility] | | | | | [address] [place] | [place] | | | 06/25/ | | [place] [address] | [address] | | | 2007 | | [phone] | | | +--------+ + + + [...] W | | | | | | [place], | | | | | | [place] [address] | | | | | | [phone] | | | | | | | | +--------+ + + + + | 05/01/ | Procedure | Cardiology | | | | 2019 | visit | | | | +--------+ + + + + | 05/01/ | Office | Cardiology | Silvia | | | 2019 | Visit | | [address] | | | | | | [place], | | | | | | [place] [address] | | | | | | [phone] | | | | | | | | +--------+ + + + + | 05/21/ | Implant | Cardiology | Daljit Singletary, | Remote Device | 2019 | Monitor | | MD [address] [place] | Interrogation | | | | | [place], | (Primary Dx); | | | | | [place] [address] | Pacemaker; | | | | | [phone] | Sinoatrial node | | | | | | dysfunction (HCC) | | | | | | with symptomatic | | | | | | bradycardia | +--------+ + + + + documented as of this encounter Visit Diagnoses Not on filedocumented in this encounter"
--- OUTSIDE RECORDS SUMMARY | ~2020-04-15 | XMS | Encounter Summary ---
Demographics + + + | Address | [address] | | | [place] [address] | + + + | Home Phone [...] Providers + +------+ + | Care Car Wash Manager Name | Role | Phone | + +------+ + | Kirk French MD | PCP | | + +------+ + Encounter Details +--------+---------+ + + + | Date | Type | Department | Care Team | Description | +--------+---------+ + + + | 12/24/ | Surgery | [facility] | Emmanuel Daniel MD | EGD | | 2018 | | MED CTR MP INTRA OP | [address], [place] | | | | | [address] | [address] [place], [place] | | | | | [place], [place] | [address] | | | | | [address] | | | | | | [phone] | | | +--------+---------+ + + + [...] + + + +---------+ + + | Jewett-3 Fatty | CAPS, one capsule by | [...] | | | | | | [place] [address] | | | | | | [phone] | | | | | | | [...] | | | | | | [place] [address] | | | | | | [phone] | | | | | | | | +--------+ + + + + | 05/21/ | Implant | Cardiology | Daljit Singletary, | Remote Device | | 2019 | Monitor | | MD [address] [place] | Interrogation | | | | | [place], | (Primary Dx); | | | | | [place] [address] | Pacemaker; | | | | | [phone] | Sinoatrial node | | | | [...] + + | Performed at: 01 - [facility] [address], | REFERENCE LAB | | [place], [place] [id number] Blasting Helper: William Andrew MD, Phone: | [facility] | | [phone] | | + + + + + + + + | Performing | Address | City/State/Zipcode | Phone Number | | Organization | | | | + + + + + | REFERENCE LAB | [address] | [place], [place] | [phone] | | [facility] | [place] | [address] | | + + + + + [...] [address] | [place] | [phone] | | [facility] | | [address] | | | - LABORATORY | | [...] ST. | [address] | [place] | [phone] | | [facility] | | [address] | | | - LABORATORY | | [...] + | [address] | [address] | [place] | [phone] | | [facility] | | [address] | | | - LABORATORY | | [...] + + | Performed at: 01 - [facility] [address], | REFERENCE LAB | | [place], [place] [id number] Blasting Helper: William Andrew MD, Phone: | [facility] | | [phone] | | + + + + + + + + | Performing | Address | City/State/Zipcode | Phone Number | | Organization | | | | + + + + + | REFERENCE LAB | [address] | [place], [place] | [phone] | | [facility] | [facility] | [address] | | + + + + + [...] [address] | [place] | [phone] | | [facility] | | [address] | | | - LABORATORY | | [...] [address] | [place] | [phone] | | [facility] | | [address] | | | - LABORATORY | | [...] | [address] | [place] | [phone] | | [facility] | | [address] | | | - LABORATORY | | [...] [address] | [place] | [phone] | | [facility] | | [address] | | | - LABORATORY | | [...] + | [facility] | [address] | [place] | [phone] | | [facility] | | [address] | | | - LABORATORY | | | | + + + + + EGD (12/24/2017 1:19 PM PST) + + | Specimen | + + | | + + + + -+ | Narrative | Performed At | + + -+ | | [facility] | | GastroenterologyPatient Name: Moe SanchezProcedure Date: 12/24/2017 | [facility] | | 1:19 PMMRN: [id number] #: [id number] of : | | | 1960dmit Type: AmbulatoryAge: 57[facility]Gender: MaleNote | | | Status: FinalizedAttending MD: Emmanuel Daniel , MDProcedure: | | | Upper GI endoscopyIndications: Diarrhea, Weight | | | lossProviders: Emmanuel Daniel MD, Maria Isabel Morris RN, | | | Kim Hicks, Supervisor Beet End, Jarett | | | Sapna Barakat MD [...] the anesthesiologist and | | | the freezer laboratory technician in the endoscopy suite. Mental Status [...] PMScope Out: 1:31:13 PM | | | [facility], [address] [place] [address] | | | [place] [address] | | | - Discharge patient to [...] |Scope Out: 1:31:13 PM | | | [facility], [address] [place] [address] | | | [address] | | + + -+ + +---------+ [...] 12/24/2017 | [facility] | | 1:17 PMMRN: [id number] #: [id number] of : | | | 8Admit Type: AmbulatoryAge: 57Room: [facility] 01Gender: MaleNote | | | Status: FinalizedAttending MD: Emmanuel Daniel [facility]ANrocedure: | | | ColonoscopyIndications: Clinically significant diarrhea of | | | unexplained originProviders: Emmanuel Danile MD, Maria Isabel | | | Arturo, RN, Kim Hicks, Supervisor Beet End, | | | Jarett Barakat MD (Anesthesia [...] | | | the anesthesiologist and the freezer laboratory technician in the endoscopy suite. | | [...] Scope In: 1:32:55 PMScope Out: 1:48:57 PM [facility] | | | [facility], [address] [place] [address] | | | [phone] | | | - Await pathology results. [...] |Scope Out: 1:48:57 PM | | | [facility], [facility] [address] [place], [place] | | | [address] | | + + -+ + +---------+ [...] | colonic mucosa with focal adenomatous change. CLR:[facility]:C2NR | | | GROSS DESCRIPTION: Received [...] | | cm, submitted, all in (D1). ka:CLR:[facility] ADDITIONAL NOTES: | | | Immunohistochemical studies were performed on this case with the | | | appropriate positive controls that react as expected. This test was | | | developed and its performance characteristics determined by [facility] | | | [facility]. It has not been cleared or approved by the U.S. Food | | | and Drug Administration. The FDA has determined that such clearance | | | or approval is not necessary. This test is used for clinical | | | purposes. It should not be regarded as investigational or for | | | research. [facility] is certified under the Clinical | | | Laboratory Improvement Amendments of 1988 (CLIA) as qualified to | | | perform high complexity clinical laboratory testing. This assay | | | has not been validated for specimens that have been decalcified. | | | PERFORMING LABORATORY: Tissue processing and slide preparation were | | | performed by [facility], [address], [facility] | | | [place] [address] (Dump Worker: Evan Frausto M.D. CLIA#: | | | [id number]). Professional interpretation was performed by [facility] | | | [facility], [address], [place] [address] | | | (Dump Worker: Evan Frausto M.D.; CLIA#: [id number]). | | | Diagnostician: Rafael Bales MD [...]
--- OUTSIDE RECORDS SUMMARY | ~2020-04-15 | XMS | Encounter Summary ---
Demographics + + + | Address | [address] | | | [place] [address] | + + + | Home Phone [...] + +------+ + | Care Forming Department End Finder Name | Role | Phone | + [...] | | CARDIOLOGY [address] | Janeen DIRECTOR OF MEDICARE [address] | mixed | | | | [place], | [place], | | | | | [place] [address] | [place] [address] | | | | | [phone] | [phone] | | | | | | | [...] W | | | | | | [place], | | | | | | [place] [address] | | | | | | [phone] | | | | | | | | +--------+ + + + + | 05/01/ | Procedure | Cardiology | | | | 2019 | visit | | | | +--------+ + + + + | 05/01/ | Office | Cardiology | Silvia, | | | 2019 | Visit | | [address] | | | | | | [place], | | | | | | [place] [address] | | | | | | [phone] | | | | | | | | +--------+ + + + + | 05/21/ | Implant | Cardiology | Daljit Singletary, | Remote Device | | 2020 | Monitor | | MD Chiquis Kauffmanar | Interrogation | | | | | [place], | (Primary Dx); | | | | | [place] [address] | Pacemaker; | | | | | [phone] | Sinoatrial node | | | | [...]
--- OUTSIDE RECORDS SUMMARY | ~2020-04-15 | XMS | Encounter Summary ---
Demographics + + + | Address | [address] | | | [place] [address] | + + + | Home Phone [...] Team Providers + +------+ + | Care Dirt Bike Mechanic Name | Role | Phone | [...] + | 09/01/ | Telephone | [facility] | [place], | Appointment | | 2016 | | CARDIOLOGY [address] | [place] [address] | (Reschedule) | | | | [place], | [place], | | | | | [place] [address] | [place] [address] | | | | | [phone] | [phone] | | | | | | | [...] | | | | | | [place], | | | | | | [place] [address] | | | | | | [phone] | | | | | | | | +--------+ + + + + | 05/01/ | Procedure | Cardiology | | | | 2019 | visit | | | | +--------+ + + + + | 05/01/ | Office | Cardiology | [place]via, | | | 2019 | Visit | | [address] [address] | | | | | | [place], | | | | | | [place] [address] | | | | | | [phone] | | | | | | | | +--------+ + + + + | 05/21/ | Implant | Cardiology | Daljit Singletary, | Remote Device | | 2019 | Monitor | | [address] [facility] | Interrogation | | | | | [place], | (Primary Dx); | | | | | [place] [address] | Pacemaker; | | | | | [phone] | Sinoatrial node | | | | | | dysfunction (HCC) | | | | | | with symptomatic | | | | | | bradycardia | +--------+ + + + + documented as of this encounter Visit Diagnoses Not on filedocumented in this encounter"
--- OUTSIDE RECORDS SUMMARY | ~2020-04-15 | XMS | Encounter Summary ---
Demographics + + + | Address | [address] | | | [place] [address] | + + + | Home Phone [...] Providers + +------+ + | Care Director Child Development Center Name | Role | Phone | + [...] + | 11/26/ | Telephone | [facility] | [place], | Appointment (Needs | | 2017 | | CARDIOLOGY [address] | [place] [address] | rescheduled) | | | | [place], | [place], | | | | | [place] [address] | [place] [address] | | | | | [phone] | [phone] | | | | | | | [...] | | | | | | [place] [address] | | | | | | [phone] | | | | | | | [...] | | | | | | [place] [address] | | | | | | [phone] | | | | | | | | +--------+ + + + + | 05/21/ | Implant | Cardiology | Daljit Singletary, | Remote Device | 2019 | Monitor | | [address] | Interrogation | | | | | [place], | (Primary Dx); | | | | | [place] [address] | Pacemaker; | | | | | [phone] | Sinoatrial node | | | | | | dysfunction (HCC) | | | | | | with symptomatic | | | | | | bradycardia | +--------+ + + + + documented as of this encounter Visit Diagnoses Not on filedocumented in this encounter"
--- OUTSIDE RECORDS SUMMARY | ~2020-04-15 | XMS | Encounter Summary ---
Demographics + + + | Address | [address] | | | [place] [address] | + + + | Home Phone [...] Providers + +------+ + | Care Patient Care Coordinator Name | Role | Phone [...] + | 07/01/ | Telephone | [facility] | Daljit Singletary, | Other (EKG) | | 2017 | | CARDIOLOGY [address] | MD [address] [place] | | | | | [place], | [place], | | | | | [place] [address] | [place] [address] | | | | | [phone] | [phone] | | | | | | | [...] | | | | | | [place] [address] | | | | | | [phone] | | | | | | | | +--------+ + + + + | 05/01/ | Procedure | Cardiology | | | | 2019 | visit | | | | +--------+ + + + + | 05/01/ | Office | Cardiology | [place], | | | 2019 | Visit | | [place] [address] | | | | | | [place], | | | | | | [place] [address] | | | | | | [phone] | | | | | | | | +--------+ + + + + | 05/21/ | Implant | Cardiology | Daljit Singletary, | Remote Device | | 2019 | Monitor | | [facility] | Interrogation | | | | | [place], | (Primary Dx); | | | | | [place] [address] | Pacemaker; | | | | | [phone] | Sinoatrial node | | | | | | dysfunction (HCC) | | | | | | with symptomatic | | | | | | bradycardia | +--------+ + + + + documented as of this encounter Visit Diagnoses Not on filedocumented in this encounter"
--- OUTSIDE RECORDS SUMMARY | ~2020-04-15 | XMS | Encounter Summary ---
Demographics + + + | Address | [address] | | | [place] [address] | + + + | Home Phone [...] Team Providers + +------+ + | Care Farm Loan Representative Name | Role | Phone | + +------+ + | Kirk French MD | PCP | | + +------+ + Encounter Details +--------+ + + + + | Date | Type | Department | Care Team | Description | +--------+ + + + + | 08/29/ | Hospital | [facility] | [place] | DVT (deep venous | | 2015 | Encounter | MED CTR ULTRASOUND | [place] [address] | thrombosis), | | | | [address] [place] | [place], | bilateral (HCC) | | | | [place], [place] | [place] [address] | | | | | [address] | [phone] | | | | | [phone] | | | +--------+ + + + [...] + + + +---------+ + + | Centerview-3 Fatty | CAPS, one capsule by | [...] | | | | | | | #[id number], exp 07/2016 | | | | | [...] W | | | | | | [place], | | | | | | [place] [address] | | | | | | [phone] | | | | | | | | +--------+ + + + + | 05/01/ | Procedure | Cardiology | | | | 2019 | visit | | | | +--------+ + + + + | 05/01/ | Office | Cardiology | [place], | | | 2019 | Visit | | [address] | | | | | | [place], | | | | | | [place] [address] | | | | | | [phone] | | | | | | | | +--------+ + + + + | 05/21/ | Implant | Cardiology | Daljit Singletary, | Remote Device | 2019 | Monitor | | MD [address] [place] | Interrogation | | | | | [place], | (Primary Dx); | | | | | [place] [address] | Pacemaker; | | | | | [phone] | Sinoatrial node | | | | [...] HISTORY: DVT. COMPARISON: None. TECHNIQUE: Compression | [facility] | | sonography was performed from the groin through the popliteal fossa | [facility] | | in both lower extremities.. [...] conveyed to the ordering provider, by the collector of port, | | | immediately following the exam. [...] to the ordering provider, by the | |collector of port, immediately following the exam. | | | | | |Dictated and Signed by: Emmanuel Gibbons MD | | Electronically signed: 08/29/2015 3:25 PM | + + + + + + + | Performing | Address | City/State/Zipcode | Phone Number | | Organization | | | | + + + + + | [facility] | [address] | [place] | [phone] | | [facility] | | [address] | | | - IMAGING | | | | + + + + + documented in this encounter Visit Diagnoses + + | Diagnosis | + + | DVT (deep venous thrombosis), bilateral | + + documented in this encounter"
--- OUTSIDE RECORDS SUMMARY | ~2020-04-15 | XMS | Encounter Summary ---
Demographics + + + | Address | [address] | | | [place] [address] | + + + | Home Phone [...] Team Providers + +------+ + | Care Veneer Layer Name | Role | Phone | [...] + + | 05/15/ | Office | [facility] | Matthew Uriarte | Kidney stones | | 2019 | Visit | [address] | MD Tawanna [address] | (Primary Dx) | | | | [place] | [address] [place] | | | | | [address] | [address] | | | | | [phone] | | | +--------+---------+ + + + [...] [employer] Peptic ulcer disease Premature ventricular contraction [facility] care 06/26/2013 LAST PSA:12/16/2010 RESULT:0.14 [...] CV LHC; Surgeon: Daljit Singletary MD; Location: [facility] CV LAB CARDIAC CATHERIZATION N/A 01/25/2019 Procedure: CV Cor Angio; Surgeon: Daljit Singletary MD; Location: [facility] CV LAB COLONOSCOPY N/A 12/24/2017 Procedure: COLONOSCOPY; Surgeon: Emmanuel Daniel MD; Location: [facility] MEDICAL PROCEDURE UNIT COLONOSCOPY N/A 01/05/2019 Procedure: COLONOSCOPY; Surgeon: Emmanuel Daniel MD; Location: [facility] MEDICAL PROCEDURE UNIT EGD 12/24/2017 HARDWARE [...] Procedure: EGD; Surgeon: Emmanuel Daniel MD; Location: [facility] MEDICAL PROCEDURE UNIT UPPER GASTROINTESTINAL ENDOSCOPY N/A 01/05/2019 Procedure: EGD; Surgeon: Emmanuel Daniel MD; Location: [facility] MEDICAL PROCEDURE UNIT URETEROSCOPY Left 04/13/2019 Procedure: Cystoscopy, Left ureteroscopy with laser lithotripsy, Left ureteral stent place ment; Surgeon: Matthew Uriarte MD; Location: [facility] MAIN OR VASECTOMY Family History: Family [...] 911, Disp: 100 ta blet, Rfl: 3 [place]-3 Fatty Acids (SALMON OIL-1000 PO), CAPS, one [...] pH, Urine 8.0 5.0 - 8.0 Specific [place] 1.008 1.001 - 1.030 Protein, Urine Negative [...] have not thoroughly proofread this note, and child nutrition assistant errors are very likely to occur. CC: Kirk French MD documented in this encounter Plan of Treatment +--------+ + + + + | Date | Type | Specialty | Care Team | Description | +--------+ + + + + | 05/01/ | Appointment | Radiology | Silvia, | | | 2019 | | | [address] | | | | | | [place], | | | | | | [place] [address] | | | | | | [phone] | | | | | | | | +--------+ + + + + | 05/01/ | Procedure | Cardiology | | | | 2019 | visit | | | | +--------+ + + + + | 05/01/ | Office | Cardiology | Silvia, | | | 2019 | Visit | | [address] | | | | | | [place], | | | | | | [place] [address] | | | | | | [phone] | | | | | | | | +--------+ + + + + | 05/21/ | Implant | Cardiology | Daljit Singletary, | Remote Device | 2019 | Monitor | | MD [address] [place] | Interrogation | | | | | [place], | (Primary Dx); | | | | | [place] [address] | Pacemaker; | | | | | [phone] | Sinoatrial node | | | | [...]
--- OUTSIDE RECORDS SUMMARY | ~2020-04-15 | XMS | Encounter Summary ---
Demographics + + + | Address | [address] | | | [place] [address] | + + + | Home Phone [...] Team Providers + +------+ + | Care Programs Director Name | Role | Phone | [...] 2012 | | CARDIOLOGY [address] | AGRICULTURAL EXTENSION EDUCATOR [address] | | | | | [place], | [place], [place] | | | | | [place] [address] | [address] | | | | | [phone] | | | +--------+ + + + [...] W | | | | | | [place], | | | | | | [place] [address] | | | | | | [phone] | | | | | | | | +--------+ + + + + | 05/01/ | Procedure | Cardiology | | | | 2019 | visit | | | | +--------+ + + + + | 05/01/ | Office | Cardiology | Silvia, | | | 2019 | Visit | | [address] | | | | | | [place], | | | | | | [place] [address] | | | | | | [phone] | | | | | | | | +--------+ + + + + | 05/21/ | Implant | Cardiology | Daljit Singletary, | Remote Device | 2019 | Monitor | | MD [address]iquis [address]o | Interrogation | | | | | [place] [place], | (Primary Dx); | | | | | [place] [address] | Pacemaker; | | | | | [phone] | Sinoatrial node | | | | | | dysfunction (HCC) | | | | | | with symptomatic | | | | | | bradycardia | +--------+ + + + + documented as of this encounter Visit Diagnoses Not on filedocumented in this encounter"
--- OUTSIDE RECORDS SUMMARY | ~2020-04-15 | XMS | Encounter Summary ---
Demographics + + + | Address | [address] [place] [address] [address] | | | [place] [address] | + + + | Home Phone | | + + + | Preferred Language | Unknown | + + + | Marital Status | | + + + | Evangelical Affiliation | Unknown | + + + [...] [place] | | | | | [address] | | + + + + + Care Team Providers + +------+ + | Care Rn Clinical Research Name | Role | Phone | + [...] | | | | | Unintentiona | [place], [place] | | | | | | l weight | [address] | | | | | | loss | Phone: | | | | | | Procedures | [phone] | | | | | | CONSULT TO | Fax: | | | | | | NON - IVETTE | [phone] | | | | | | PROVIDER [...] 2019 | | Center at [facility] [address] | MD [address] | normal, recommend | | | | [address] | [place], [place] | hyoscyamine) | | | | Mailcode: [place] | [phone] | | | | | for Health and | [phone] | | | | | [facility], [facility] | | | | | | [place], [place] | | | | | | [address] | | | | | | [phone] | | | +--------+ + + + [...]
--- OUTSIDE RECORDS SUMMARY | ~2020-04-15 | XMS | Encounter Summary ---
Demographics + + + | Address | [address] | | | [place] [address] | + + + | Home Phone [...] Providers + +------+ + | Care User Support Analyst Name | Role | Phone [...] | CARDIOLOGY [address] | [address] | [facility]) | | | | [place], | [place], | | | | | [place] [address] | [place] [address] | | | | | [phone] | [phone] | | | | | | | [...] | | | | | | [place] [address] | | | | | | [phone] | | | | | | | | +--------+ + + + + | 05/01/ | Procedure | Cardiology | | | | 2019 | visit | | | | +--------+ + + + + | 05/01/ | Office | Cardiology | Silvia, | | | 2019 | Visit | | [address]ISA [address] | | | | | | [place], | | | | | | [place] [address] | | | | | | [phone] | | | | | | | | +--------+ + + + + | 05/21/ | Implant | Cardiology | Daljit Singletary, | Remote Device | 2019 | Monitor | | [address] [facility] | Interrogation | | | | | [place], | (Primary Dx); | | | | | [place] [address] | Pacemaker; | | | | | [phone] | Sinoatrial node | | | | | | dysfunction (HCC) | | | | | | with symptomatic | | | | | | bradycardia | +--------+ + + + + documented as of this encounter Visit Diagnoses Not on filedocumented in this encounter"
--- OUTSIDE RECORDS SUMMARY | ~2020-04-15 | XMS | Encounter Summary ---
Demographics + + + | Address | [address] [place] [address] [address] | | | [place] [address] | + + + | Home Phone [...] [place] | | | | | [address] | | + + + + + Care Team Providers + +------+ + | Care Last Putter Away Name | Role | Phone | + [...] | | | [address] | [facility] [place] | | | | | Mailcode: [place] | [address] | | | | | for Health and | [phone] | | | | | [facility] | | | | | | [place], [place] | | | | | | [address] | | | | | | [phone] | | | +--------+ + + + [...]
--- OUTSIDE RECORDS SUMMARY | ~2020-04-15 | XMS | Encounter Summary ---
Demographics + + + | Address | [address] | | | [place] [address] | + + + | Home Phone [...] Providers + +------+ + | Care Payroll Benefits Clerk Name | Role | Phone | [...] Provider Unknown | | | | | [place], [place] | [phone] | | | | | [address] | | | | | | [phone] | | | +--------+ + + + [...] + + + +---------+ + + | [place]-3 Fatty | CAPS, one capsule by | [...] | | | | | | [place] [address] | | | | | | [phone] | | | | | | | | +--------+ + + + + | 05/01/ | Procedure | Cardiology | | | | 2019 | visit | | | | +--------+ + + + + | 05/01/ | Office | Cardiology | Silvia, | | | 2019 | Visit | | [address] | | | | | | [place], | | | | | | [place] [address] | | | | | | [phone] | | | | | | | | +--------+ + + + + | 05/21/ | Implant | Cardiology | Daljit Singletary, | Remote Device | 2019 | Monitor | | [address] [place] | Interrogation | | | | | [place], | (Primary Dx); | | | | | [place] [address] | Pacemaker; | | | | | [phone] | Sinoatrial node | | | | | | dysfunction ([facility]) | | | | | | with [...]
--- OUTSIDE RECORDS SUMMARY | ~2020-04-15 | XMS | Encounter Summary ---
Demographics + + + | Address | [address] | | | [place] [address] | + + + | Home Phone [...] Team Providers + +------+ + | Care Motion Picture Set Grip Name | Role | Phone | + +------+ + PCP | Unavailable | + +------+ + Encounter Details +--------+ + + + + | Date | Type | Department | Care Team | Description | +--------+ + + + + | 06/25/ | [facility] | [facility] | Daljit Singletary, | | | 2008 | Encounter | MED CTR XRAY [address] | [address] [place] | | | | | [place] | [place], | | | | | [place] [address] | [place] [address] | | | | | [phone] | [phone] | | | | | | | [...] W | | | | | | [place], | | | | | | [place] [address] | | | | | | [phone] | | | | | | | | +--------+ + + + + | 05/01/ | Procedure | Cardiology | | | | 2019 | visit | | | | +--------+ + + + + | 05/01/ | Office | Cardiology | Silvia, | | | 2019 | Visit | | PARISA [address] | | | | | | [place], | | | | | | [place] [address] | | | | | | [phone] | | | | | | | | +--------+ + + + + | 05/21/ | Implant | Cardiology | Daljit Singletary, | Remote Device | 2019 | Monitor | | [address] [place] | Interrogation | | | | | [place], | (Primary Dx); | | | | | [place] [address] | Pacemaker; | | | | | [phone] | Sinoatrial node | | | | | | dysfunction (HCC) | | | | | | with symptomatic | | | | | | bradycardia | +--------+ + + + + documented as of this encounter Visit Diagnoses Not on filedocumented in this encounter"
--- OUTSIDE RECORDS SUMMARY | ~2020-04-15 | XMS | Encounter Summary ---
Demographics + + + | Address | [address] | | | [place] [address] | + + + | Home Phone [...] Team Providers + +------+ + | Care Millinery Copyist Name | Role | Phone | + +------+ + PCP | Unavailable | + +------+ + Encounter Details +--------+ + + + + | Date | Type | Department | Care Team | Description | +--------+ + + + + | 08/17/ | [facility] | [facility] | Evan Gandara MD | | | 2005 | Encounter | MED CTR LABORATORY | [address] [facility] | | | | | [address] | [place] | | | | | [place] | [address] | | | | | [address] | | | | | | [phone] | | | +--------+ + + + [...] W | | | | | | [place], | | | | | | [place] [address] | | | | | | [phone] | | | | | | | | +--------+ + + + + | 05/01/ | Procedure | Cardiology | | | | 2019 | visit | | | | +--------+ + + + + | 05/01/ | Office | Cardiology | Silvia | | | 2019 | Visit | | PARISA [address] W | | | | | | [place], | | | | | | [place] [address] | | | | | | [phone] | | | | | | | | +--------+ + + + + | 05/21/ | Implant | Cardiology | Daljit Singletary, | Remote Device | 2019 | Monitor | | MD [address] [place] | Interrogation | | | | | [place], | (Primary Dx); | | | | | [place] [address] | Pacemaker; | | | | | [phone] | Sinoatrial node | | | | | | dysfunction (HCC) | | | | | | with symptomatic | | | | | | bradycardia | +--------+ + + + + documented as of this encounter Visit Diagnoses Not on filedocumented in this encounter"
--- OUTSIDE RECORDS SUMMARY | ~2020-04-15 | XMS | Encounter Summary ---
Demographics + + + | Address | [address] [place] [address] [address] | | | [place] [address] | + + + | Home Phone [...] [place] | | | | | [address] | | + + + + + Care Team Providers + +------+ + | Care Hydraulic Punch Press Operator Name | Role | Phone [...]
--- OUTSIDE RECORDS SUMMARY | ~2020-04-15 | XMS | Encounter Summary ---
Demographics + + + | Address | [address] | | | [place] [address] | + + + | Home Phone [...] Providers + +------+ + | Care Self Rising Flour Mixer Name | Role | Phone | [...] + + | 12/21/ | Office | [facility] | [place], | Chest pain (Primary | | 2013 | Visit | CARDIOLOGY [address] | [address] | Dx); Symptomatic | | | | [place], | [place], | PVCs; | | | | [place] [address] | [place] [address] | Hyperlipidemia; | | | | [phone] | [phone] | Hypertension; | | | | | [...] this time to see a specialist in [place] and he was to follow up with [...] MOUTH EVERY DAY 30 table t 5 [place]-3 Fatty Acids (SALMON OIL-1000 PO) CAPS, one [...] arrhythmia performed by Dr. Gambino at [facility] on 01/30/2013. Patient had spontaneous PVCs [...] to go back in 3 days to [place] for an attempt of ablation under general [...] tolic function, LVEF 65 to 70%. B. Invenias DDD permanent pacemaker implantation on 06/14/09 by [...] made to ensure accuracy; however, inadvertent computerized screen tender helper errors may be pre sent. documented in this encounter Plan of Treatment +--------+ + + + + | Date | Type | Specialty | Care Team | Description | +--------+ + + + + | 05/01/ | Appointment | Radiology | Silvia, | | | 2019 | | | JaneenPARISA marks [address] | | | | | | [place], | | | | | | [place] [address] | | | | | | [phone] | | | | | | | | +--------+ + + + + | 05/01/ | Procedure | Cardiology | | | | 2019 | visit | | | | +--------+ + + + + | 05/01/ | Office | Cardiology | Silvia, | | | 2019 | Visit | | [address] | | | | | | [place], | | | | | | [place] [address] | | | | | | [phone] | | | | | | | | +--------+ + + + + | 05/21/ | Implant | Cardiology | Daljit Singletary, | Remote Device | 2019 | Monitor | | [address] [place] | Interrogation | | | | | [place], | (Primary Dx); | | | | | [place] [address] | Pacemaker; | | | | | [phone] | Sinoatrial node | | | | [...] of unspecified type of vessel, | | [place] or graft | + + documented in this encounter
--- OUTSIDE RECORDS SUMMARY | ~2020-04-15 | XMS | Encounter Summary ---
Demographics + + + | Address | [address] | | | [place] [address] | + + + | Home Phone [...] Providers + +------+ + | Care Dining Room Manager Name | Role | Phone | [...] | | [address] | [place] [address] | | | | | [facility] | [phone] | | | | | [address] | | | | | | [phone] | | | +--------+ + + + [...] W | | | | | | [place], | | | | | | [place] [address] | | | | | | [phone] | | | | | | | | +--------+ + + + + | 05/01/ | Procedure | Cardiology | | | | 2019 | visit | | | | +--------+ + + + + | 05/01/ | Office | Cardiology | Silvia, | | | 2019 | Visit | | PAR[address] | | | | | | [place], | | | | | | [place] [address] | | | | | | [phone] | | | | | | | | +--------+ + + + + | 05/21/ | Implant | Cardiology | Daljit Singletary, | Remote Device | 2019 | Monitor | | MD [address] [place] | Interrogation | | | | | [facility], | (Primary Dx); | | | | | [place] [address] | Pacemaker; | | | | | [phone] | Sinoatrial node | | | | | | dysfunction (HCC) | | | | | | with symptomatic | | | | | | bradycardia | +--------+ + + + + documented as of this encounter Visit Diagnoses Not on filedocumented in this encounter"
--- OUTSIDE RECORDS SUMMARY | ~2020-04-15 | XMS | Encounter Summary ---
Demographics + + + | Address | [address] | | | [place] [address] | + + + | Home Phone [...] Team Providers + +------+ + | Care Dyeing Machine Tender Name | Role | Phone [...] Refill | | 2013 | | [facility] [place] | DO [address] | | | | | [address] | [place] | | | | | [place] | [address] | | | | | [address] | | | | | | [phone] | | | +--------+--------+ + + + [...] W | | | | | | [place], | | | | | | [place] [address] | | | | | | [phone] | | | | | | | | +--------+ + + + + | 05/01/ | Procedure | Cardiology | | | | 2019 | visit | | | | +--------+ + + + + | 05/01/ | Office | Cardiology | Silvia, | | | 2019 | Visit | | PARISA Vernon W | | | | | | [place], | | | | | | [place] [address] | | | | | | [phone] | | | | | | | | +--------+ + + + + | 05/21/ | Implant | Cardiology | Daljit Singletary, | Remote Device | | 2019 | Monitor | | [address] [facility] | Interrogation | | | | | [place], | (Primary Dx); | | | | | [place] [address] | Pacemaker; | | | | | [phone] | Sinoatrial node | | | | | | dysfunction (HCC) | | | | | | with symptomatic | | | | | | bradycardia | +--------+ + + + + documented as of this encounter Visit Diagnoses Not on filedocumented in this encounter"
--- OUTSIDE RECORDS SUMMARY | ~2020-04-15 | XMS | Encounter Summary ---
Demographics + + + | Address | [address] | | | [place] [address] | + + + | Home Phone [...] Team Providers + +------+ + | Care Impregnator Helper Name | Role | Phone | [...] | type | [address] | [address] | | | | | Procedures | ST [place] | [place], | | | | | FUP | [place], [place] | [place] [address] | | | | | | [address] | Phone: | | | | | | Phone: | [phone] | | | | | | [phone] | Fax: | | | | | | Fax: | [phone] | | | | | | [phone] | | +--------+ + + + + [...] | | | | CENTER [address] | [address] [place] | (Primary Dx) | | | | [place], [place] | [place] [address] | | | | | [address] | [phone] | | | | | [phone] | | | +--------+ + + + [...] cannot be sent through Care Everywhere.Angina, Stable (Lao)documented in this encounter Medications at Time of [...] + + + +---------+ + + | [place]-3 Fatty | CAPS, one capsule by [...] | | | | | | [place] [address] | | | | | | [phone] | | | | | | | | +--------+ + + + + | 05/01/ | Procedure | Cardiology | | | | 2019 | visit | | | | +--------+ + + + + | 05/01/ | Office | Cardiology | Silvia | | | 2019 | Visit | | PARISA Vernon [address] | | | | | | [place], | | | | | | [place] [address] | | | | | | [phone] | | | | | | | | +--------+ + + + + | 05/21/ | Implant | Cardiology | Daljit Singletary, | Remote Device | 2019 | Monitor | | [address] | Interrogation | | | | | [place], | (Primary Dx); | | | | | [place] [address] | Pacemaker; | | | | | [phone] | Sinoatrial node | | | | [...] | | | | HIREN WINKLER, ANGELA ([id number]) | | | | | | on [...] | | | | | | [employer] | | | | | [...] | [address] | [place] | [phone] | | [facility] | | [address] | | | - LABORATORY | | [...] + | [facility] | [address] | [place] | [phone] | | [facility] | | [address] | | | - LABORATORY | | [...] | | | | | | [employer] | | | | | [...] + | [facility] | [address] | [place] | [phone] | | [facility] | | [address] | | | - LABORATORY | | [...] | [address] MICHELLE | | | PALESTINIAN | RATE,ESTIMATED | | MEDICAL | | | | mL/min/[id number] than | | CENTER - | | [...] [address] | [place] | [phone] | | [facility] | | [address] | | | - LABORATORY | | [...] [address] | [place] | [phone] | | [facility] | | [address] | | | - [...] | | | | ANGELA MARADIAGA MD ([id number]) | | | | | | on [...]
--- OUTSIDE RECORDS SUMMARY | ~2020-04-15 | XMS | Encounter Summary ---
Demographics + + + | Address | [address] | | | [place] [address] | + + + | Home Phone [...] Team Providers + +------+ + | Care Emulsion Coater Name | Role | Phone | [...] visit | CARDIOLOGY [address] | [address] [place] | reprogramming/check | | | | [place], | [place], | DO NOT DELETE | | | | [place] [address] | [place] [address] | (Primary Dx); | | | | [phone] | [phone] | Sinoatrial node | | | | [...] | | | | | | [place] [address] | | | | | | [phone] | | | | | | | | +--------+ + + + + | 05/01/ | Procedure | Cardiology | | | | 2019 | visit | | | | +--------+ + + + + | 05/01/ | Office | Cardiology | Silvia | | | 2019 | Visit | | PARISA Vernon [address] | | | | | | [place], | | | | | | [place] [address] | | | | | | [phone] | | | | | | | | +--------+ + + + + | 05/21/ | Implant | Cardiology | Daljit Singletary, | Remote Device | | 2019 | Monitor | | [address] [place] | Interrogation | | | | | [place], | (Primary Dx); | | | | | [place] [address] | Pacemaker; | | | | | [phone] | Sinoatrial node | | | | [...]
--- OUTSIDE RECORDS SUMMARY | ~2020-04-15 | XMS | Encounter Summary ---
Demographics + + + | Address | [address] | | | [place] [address] | + + + | Home Phone [...] Providers + +------+ + | Care Stock Associate Name | Role | Phone | [...] | | | | Sinoatrial | Geri, HOT WORT SETTLER | [address] | | | | | node | [address] | [place], | | | | | dysfunction | [place] | [place] | | | | | (HCC) | [place] | [address] | | | | | Coronary | [address] | Phone: | | | | | artery | Phone: | [phone] | | | | | disease | [phone] | Fax: | | | | | involving | Fax: | [phone] | | | | | ione | [phone] | | | | | | coronary | | | | | | | artery of | | | | | | | ione heart | | | | | | [...] | Office | [facility] [place] | Geri Angel, | Sinoatrial node | | 2016 | Visit | CARDIOLOGY [address] | HOT WORT SETTLER [address] | dysfunction (HCC) | | | | [place], | [place] | with symptomatic | | | | [place] [address] | [address] | bradycardia (Primary | | | | [phone] | | Dx); Coronary | | | | | | artery disease | | | | | | involving ione | | | | | | coronary artery of | | | | | | ione heart without | | | | | [...] encounter Progress Notes Geri Angel ARNP - 12/31/2015 2:36 PM PSTFormatting [...] Preventative health care Coronary artery disease involving ione coronary artery without angina pectoris Cannabis abuse, [...] 3rd dose, call 911 100 tablet 3 [place]-3 Fatty Acids (SALMON OIL-1000 PO) CAPS, one capsule by mouth daily twice daily ONE TOUCH DELICA LANCETS [facility] Check glucose as [...] scanned Paceart documentation and device PDF in [employer] for interrogation (with progr amming changes) performed [...] to go back in 3 days to [place] for an attempt of ablation under general [...] dizziness. He is in class I-II of [place] [employer] functional class. T here are [...] this chart may have been created with [employer] voice recognition software. Occasi onal wrong-word or [...] | | | | | | [place] [address] | | | | | | [phone] | | | | | | | | +--------+ + + + + | 05/01/ | Procedure | Cardiology | | | 2019 | visit | | | | +--------+ + + + + | 05/01/ | Office | Cardiology | [place], | | | 2019 | Visit | | [address] | | | | | | [place], | | | | | | [place] [address] | | | | | | [phone] | | | | | | | | +--------+ + + + + | 05/21/ | Implant | Cardiology | Sydni Singletary, | Remote Device | | 2019 | Monitor | | [address] | Interrogation | | | | | [place], | (Primary Dx); | | | | | [place] [address] | Pacemaker; | | | | | [phone] | Sinoatrial node | | | | [...] | | | TRANSTHORAC | | | STJuan Diego MARTINEZ | | | IC ECHO | [...] (TTE) Demographics Patient Name VICTOR HUGO | [facility] | | [place] Room Number SARAH Patient | [facility] | | [id number] Date of Study 06/16/2016 Number | - IMAGING | | Visit Number [id number] | | | Referring Physician JOSE ARMANDO GARCIA Number Date of 1960 | | | Dot Net Architect LUIS FERNANDO DUARTE Age | | | 56 year(s) Interpreting | | | GURJIT TROY | | | Manager Market Research SYDNI SINGLETARY, | | | Gender | | | Male Nurse Procedure Type of Study TTE | | | procedure: ECHO Complete. Procedure dateDate: 06/16/2016Start: 10:55 | | | AM Technical Quality: Adequate visualizationStudy Location: Echo | | | LabIndications: CAD [place] CORONARY ARTERY 414.01/ I25.10 and | | [...] BARRY Room Number SARAH | | Patient [id number] Date of Study 06/16/2016 Number Visit Number | | [id number] Referring Physician JOSE ARMANDO GARCIA Number | | Date of 1960 Dot Net Architect LUIS FERNANDO DUARTE Age | | 56 year(s) Interpreting GURJIT TROY | | Manager Market Research SYDNI SINGLETARY, | | Gender Male NurseProcedureType of Study TTE | | procedure: ECHO Complete.Procedure dateDate: 06/16/2016Start: 10:55 AMTechnical Quality: | | Adequate visualizationStudy Location: Echo LabIndications: CAD [place] CORONARY ARTERY | | 414.01/ I25.10 and [...] ST. | [address] | [place], [place] | [phone] | | [facility] | | [address] | | | - IMAGING | | [...] | | 2. Coronary artery disease involving ione coronary artery of | | | ione heart without angina pectoris I25.10 414.01 ECHO [...] + + | Performing | Address | City/State[facility] | Phone Number | | [...] + + | Coronary artery disease involving ione coronary artery of ione heart without | | angina pectoris | [...]
--- OUTSIDE RECORDS SUMMARY | ~2020-04-15 | XMS | Encounter Summary ---
Demographics + + + | Address | [address] | | | [place] [address] | + + + | Home Phone [...] Providers + +------+ + | Care Bisque Finisher Name | Role | Phone | [...] | | CARDIOLOGY [address] | Janeen FOOD AND BEVERAGE MANAGER [address] | mixed | | | | [place], | [place], | | | | | [place] [address] | [place] [address] | | | | | [phone] | [phone] | | | | | | | [...] W | | | | | | [place], | | | | | | [place] [address] | | | | | | [phone] | | | | | | | | +--------+ + + + + | 05/01/ | Procedure | Cardiology | | | | 2019 | visit | | | | +--------+ + + + + | 05/01/ | Office | Cardiology | Silvia, | | | 2019 | Visit | | [address] | | | | | | [place], | | | | | | [place] [address] | | | | | | [phone] | | | | | | | | +--------+ + + + + | 05/21/ | Implant | Cardiology | Daljit Singletary, | Remote Device | | 2020 | Monitor | | MD [address] | Interrogation | | | | | [place], | (Primary Dx); | | | | | [place] [address] | Pacemaker; | | | | | [phone] | Sinoatrial node | | | | [...]
--- OUTSIDE RECORDS SUMMARY | ~2020-04-15 | XMS | Encounter Summary ---
Demographics + + + | Address | [address] | | | [place] [address] | + + + | Home Phone [...] Team Providers + +------+ + | Care Image Scientist Name | Role | Phone | + +------+ + PCP | Unavailable | + +------+ + Encounter Details +--------+ + + + + | Date | Type | Department | Care Team | Description | +--------+ + + + + | 08/12/ | Hospital | [facility] OP | Conversion | | | 2000 | Encounter | CONVERSION | Transaction, | | | | | DEPARTMENT [address] | Provider Unknown | | | | | [address] | | | | | | [place], [place] | (Fax) | | | | | [address] | | | | | | [phone] | | | +--------+ + + + [...] | | | | | | [place] [address] | | | | | | [phone] | | | | | | | | +--------+ + + + + | 05/01/ | Procedure | Cardiology | | | | 2019 | visit | | | | +--------+ + + + + | 05/01/ | Office | Cardiology | [place]via, | | | 2019 | Visit | | PARISA Vernon [address] | | | | | | [place], | | | | | | [place] [address] | | | | | | [phone] | | | | | | | | +--------+ + + + + | 05/21/ | Implant | Cardiology | Daljit Singletary, | Remote Device | | 2019 | Monitor | | [address] [place] | Interrogation | | | | | [place], | (Primary Dx); | | | | | [place] [address] | Pacemaker; | | | | | [phone] | Sinoatrial node | | | | | | dysfunction (HCC) | | | | | | with symptomatic | | | | | | bradycardia | +--------+ + + + + documented as of this encounter Visit Diagnoses Not on filedocumented in this encounter"
--- OUTSIDE RECORDS SUMMARY | ~2020-04-15 | XMS | Encounter Summary ---
Demographics + + + | Address | [address] | | | [place] [address] | + + + | Home Phone [...] Team Providers + +------+ + | Care Recruiting Coordinator Name | Role | Phone | [...] Other | | 2012 | | [facility] [place] | DO [address] | | | | | [address] | [place] | | | | | [place] | [address] | | | | | [address] | | | | | | [phone] | | | +--------+ + + + [...] | | | | | | [place] [address] | | | | | | [phone] | | | | | | | [...] | | | | | | [place] [address] | | | | | | [phone] | | | | | | | | +--------+ + + + + | 05/21/ | Implant | Cardiology | Daljit Singletary, | Remote Device | 2019 | Monitor | | MD [address] [place] | Interrogation | | | | | [place], | (Primary Dx); | | | | | [place] [address] | Pacemaker; | | | | | [phone] | Sinoatrial node | | | | | | dysfunction (HCC) | | | | | | with symptomatic | | | | | | bradycardia | +--------+ + + + + documented as of this encounter Visit Diagnoses Not on filedocumented in this encounter"
--- OUTSIDE RECORDS SUMMARY | ~2020-04-15 | XMS | Encounter Summary ---
Demographics + + + | Address | [address] | | | [place] [address] | + + + | Home Phone [...] Providers + +------+ + | Care Metal Bed Assembler Name | Role | Phone | [...] CARDIOLOGY [address] | MD [address] [place] | reprogramming/check | | | | [place], | [place], | DO NOT DELETE | | | | [place] [address] | [place] [address] | (Primary Dx); | | | | [phone] | [phone] | Pacemaker - | | | | [...] | | | | | | [place] [address] | | | | | | [phone] | | | | | | | | +--------+ + + + + | 05/01/ | Procedure | Cardiology | | | | 2019 | visit | | | | +--------+ + + + + | 05/01/ | Office | Cardiology | [place], | | | 2019 | Visit | | [address] | | | | | | [place], | | | | | | [place] [address] | | | | | | [phone] | | | | | | | | +--------+ + + + + | 05/21/ | Implant | Cardiology | Daljit Singletary, | Remote Device | | 2019 | Monitor | | [address] [place] | Interrogation | | | | | [place], | (Primary Dx); | | | | | [place] [address] | Pacemaker; | | | | | [phone] | Sinoatrial node | | | | [...]
--- OUTSIDE RECORDS SUMMARY | ~2020-04-15 | XMS | Encounter Summary ---
Demographics + + + | Address | [address] | | | [place] [address] | + + + | Home Phone [...] Team Providers + +------+ + | Care Binding Machine Operator Name | Role | Phone [...] 2012 | | CARDIOLOGY [address] | MEDICAL ASSISTANT CARDIOLOGY [address] [place] | | | | | [place], | [facility] [place] [facility] [place] | | | | | [place] [address] | [address] | | | | | [phone] | | | +--------+ + + + [...] | | | | | | [place] [address] | | | | | | [phone] | | | | | | | [...] | | | | | | [place] [address] | | | | | | [phone] | | | | | | | | +--------+ + + + + | 05/21/ | Implant | Cardiology | Dalijt Singletary, | Remote Device | 2019 | Monitor | | [address] | Interrogation | | | | | [place], | (Primary Dx); | | | | | [place] [address] | Pacemaker; | | | | | [phone] | Sinoatrial node | | | | | | dysfunction (HCC) | | | | | | with symptomatic | | | | | | bradycardia | +--------+ + + + + documented as of this encounter Visit Diagnoses Not on filedocumented in this encounter"
--- OUTSIDE RECORDS SUMMARY | ~2020-04-15 | XMS | Encounter Summary ---
Demographics + + + | Address | [address] | | | [place] [address] | + + + | Home Phone [...] Providers + +------+ + | Care Labor Standards Director Name | Role | Phone | [...] | 02/16/ | Telephone | [facility] | [place], | Other (concerned | | 2012 | | CARDIOLOGY [address] | [address] | about palpitations) | | | | [place], | [place], | | | | | [place] [address] | [place] [address] | | | | | [phone] | [phone] | | | | | | | [...] W | | | | | | [place], | | | | | | [place] [address] | | | | | | [phone] | | | | | | | | +--------+ + + + + | 05/01/ | Procedure | Cardiology | | | | 2019 | visit | | | | +--------+ + + + + | 05/01/ | Office | Cardiology | [place]via, | | | 2019 | Visit | | PARISA Vernon [address] | | | | | | [place], | | | | | | [place] [address] | | | | | | [phone] | | | | | | | | +--------+ + + + + | 05/21/ | Implant | Cardiology | Daljit Singletary, | Remote Device | | 2019 | Monitor | | [address] [facility] | Interrogation | | | | | [place], | (Primary Dx); | | | | | [place] [address] | Pacemaker; | | | | | [phone] | Sinoatrial node | | | | | | dysfunction (HCC) | | | | | | with symptomatic | | | | | | bradycardia | +--------+ + + + + documented as of this encounter Visit Diagnoses Not on filedocumented in this encounter"
--- OUTSIDE RECORDS SUMMARY | ~2020-04-15 | XMS | Encounter Summary ---
Demographics + + + | Address | [address] | | | [place] [address] | + + + | Home Phone [...] Team Providers + +------+ + | Care Microbiology Professor Name | Role | Phone | [...] | | | | [place] | [address] [place] | | | | | [address] | [address] | | | | | [phone] | | | +--------+ + + + [...] | | | | | | [place] [address] | | | | | | [phone] | | | | | | | [...] | | | | | | [place] [address] | | | | | | [phone] | | | | | | | | +--------+ + + + + | 05/21/ | Implant | Cardiology | Daljit Singletary, | Remote Device | | 2019 | Monitor | | [address] [place] | Interrogation | | | | | [place], | (Primary Dx); | | | | | [place] [address] | Pacemaker; | | | | | [phone] | Sinoatrial node | | | | | | dysfunction ([facility]) | | | | | | with symptomatic | | | | | | bradycardia | +--------+ + + + + documented as of this encounter Visit Diagnoses Not on filedocumented in this encounter"
--- OUTSIDE RECORDS SUMMARY | ~2020-04-15 | XMS | Encounter Summary ---
Demographics + + + | Address | [address] | | | [place] [address] | + + + | Home Phone [...] Team Providers + +------+ + | Care Mushroom Cultivator Name | Role | Phone | + [...] [place] | | | | | [address] [place], [place] | [address] | | | | | [address] | | | | | | [phone] | | | +--------+ + + + [...] W | | | | | | [place], | | | | | | [place] [address] | | | | | | [phone] | | | | | | | | +--------+ + + + + | 05/01/ | Procedure | Cardiology | | | | 2019 | visit | | | | +--------+ + + + + | 05/01/ | Office | Cardiology | [place], | | | 2019 | Visit | | [address] | | | | | | [place], | | | | | | [place] [address] | | | | | | [phone] | | | | | | | | +--------+ + + + + | 05/21/ | Implant | Cardiology | Daljit Singletary, | Remote Device | | 2020 | Monitor | | [address] [facility] | Interrogation | | | | | [place], | (Primary Dx); | | | | | [place] [address] | Pacemaker; | | | | | [phone] | Sinoatrial node | | | | | | dysfunction ([facility]) | | | | | | with [...]
--- OUTSIDE RECORDS SUMMARY | ~2020-04-15 | XMS | Encounter Summary ---
Demographics + + + | Address | [address] | | | [place] [address] | + + + | Home Phone [...] Team Providers + +------+ + | Care Ssis Architect Name | Role | Phone | + +------+ + PCP | Unavailable | + +------+ + Encounter Details +--------+ + + + + | Date | Type | Department | Care Team | Description | +--------+ + + + + | 06/13/ | [facility] | [facility] | Daljit Singletary, | | | 2008 | Encounter | MED CTR LABORATORY | [address] | | | | | [address] [place] | [place], | | | | | [place] | [place] [address] | | | | | [address] | [phone] | | | | | [phone] | | | +--------+ + + + [...] W | | | | | | [place], | | | | | | [place] [address] | | | | | | [phone] | | | | | | | | +--------+ + + + + | 05/01/ | Procedure | Cardiology | | | | 2019 | visit | | | | +--------+ + + + + | 05/01/ | Office | Cardiology | [place]via | | | 2019 | Visit | | PARISA Vernon [address] | | | | | | [place], | | | | | | [place] [address] | | | | | | [phone] | | | | | | | | +--------+ + + + + | 05/21/ | Implant | Cardiology | Daljit Singletary, | Remote Device | 2019 | Monitor | | MD [address] [place] | Interrogation | | | | | [place], | (Primary Dx); | | | | | [place] [address] | Pacemaker; | | | | | [phone] | Sinoatrial node | | | | | | dysfunction (HCC) | | | | | | with symptomatic | | | | | | bradycardia | +--------+ + + + + documented as of this encounter Visit Diagnoses Not on filedocumented in this encounter"
--- OUTSIDE RECORDS SUMMARY | ~2020-04-15 | XMS | Encounter Summary ---
Demographics + + + | Address | [address] | | | [place] [address] | + + + | Home Phone [...] Providers + +------+ + | Care Wire Mesh Knitter Name | Role | Phone | [...] + | 12/23/ | Telephone | [facility] | Daljit Singletary, | Other (question | | 2015 | | CARDIOLOGY [address] | [address] [place] | about diet | | | | [place], | [place], | medication) | | | | [place] [address] | [place] [address] | | | | | [phone] | [phone] | | | | | | | [...] [place] | | | | | | [place] [address] | | | | | | [phone] | | | | | | | | +--------+ + + + + | 05/01/ | Procedure | Cardiology | | | | 2019 | visit | | | | +--------+ + + + + | 05/01/ | Office | Cardiology | [place] | | | 2019 | Visit | | Janeen, DYE WINCH OPERATOR [address] | | | | | | [place], | | | | | | [place] [address] | | | | | | [phone] | | | | | | | | +--------+ + + + + | 05/21/ | Implant | Cardiology | Daljit Singletary, | Remote Device | | 2020 | Monitor | | MD [address] | Interrogation | | | | | [place], | (Primary Dx); | | | | | [place] [address] | Pacemaker; | | | | | [phone] | Sinoatrial node | | | | | | dysfunction ([facility]) | | | | | | with symptomatic | | | | | | bradycardia | +--------+ + + + + documented as of this encounter Visit Diagnoses Not on filedocumented in this encounter"
--- OUTSIDE RECORDS SUMMARY | ~2020-04-15 | XMS | Encounter Summary ---
Demographics + + + | Address | [address] | | | [place] [address] | + + + | Home Phone [...] Team Providers + +------+ + | Care Qa Specialist Name | Role | Phone | [...] 2019 | | GASTROENTEROLOGY | [address] [place] | | | | | [address] [place] | [address] [place], [place] | | | | | [address] [place], [place] | [address] | | | | | [address] | | | | | | [phone] | | | +--------+ + + + [...] | | | | | | [place] [address] | | | | | | [phone] | | | | | | | | +--------+ + + + + | 05/01/ | Procedure | Cardiology | | | | 2020 | visit | | | | +--------+ + + + + | 06/10/ | Office | Cardiology | Silvia, | | | 2019 | Visit | | [address] | | | | | | [address] [place], | | | | | | [place] [address] | | | | | | [phone] | | | | | | | | +--------+ + + + + | 05/21/ | Implant | Cardiology | Daljit Singletary, | Remote Device | 2019 | Monitor | | [address] | Interrogation | | | | | [place], | (Primary Dx); | | | | | [place] [address] | Pacemaker; | | | | | [phone] | Sinoatrial node | | | | | | dysfunction (HCC) | | | | | | with symptomatic | | | | | | bradycardia | +--------+ + + + + documented as of this encounter Visit Diagnoses Not on filedocumented in this encounter"
--- OUTSIDE RECORDS SUMMARY | ~2020-04-15 | XMS | Encounter Summary ---
Demographics + + + | Address | [address] | | | [place] [address] | + + + | Home Phone [...] Team Providers + +------+ + | Care Trouble Clerk Name | Role | Phone | + +------+ + | Kirk French MD | PCP | | + +------+ + Encounter Details +--------+ + + + + | Date | Type | Department | Care Team | Description | +--------+ + + + + | 10/25/ | Hospital | [facility] | Kirk French | Aneurysm (HCC) | | 2017 | Encounter | MED CTR ULTR[facility]OUND | D, MD [address] | | | | | [address] [place] | [address] | | | | | [place], [place] | [place] [address] | | | | | [address] | [phone] | | | | | [phone] | | | | | | | [...] + + + +---------+ + + | [place]-3 Fatty | CAPS, one capsule by | [...] W | | | | | | [place], | | | | | | [place] [address] | | | | | | [phone] | | | | | | | | +--------+ + + + + | 05/01/ | Procedure | Cardiology | | | | 2019 | visit | | | | +--------+ + + + + | 05/01/ | Office | Cardiology | Silvia, | | | 2019 | Visit | | [address] | | | | | | [place], | | | | | | [place] [address] | | | | | | [phone] | | | | | | | | +--------+ + + + + | 05/21/ | Implant | Cardiology | Daljit Singletary, | Remote Device | | 2019 | Monitor | | [facility] | Interrogation | | | | | [place], | (Primary Dx); | | | | | [place] [address] | Pacemaker; | | | | | [phone] | Sinoatrial node | | | | [...]
--- OUTSIDE RECORDS SUMMARY | ~2020-04-15 | XMS | Encounter Summary ---
Demographics + + + | Address | [address] [place] [address] [address] | | | [place] [address] | + + + | Home Phone | | + + + | Preferred Language | Unknown | + + + | Marital Status | | + + + | Gnosticist Affiliation | Unknown | + + + [...] [place] | | | | | [address] | | + + + + + Care Team Providers + +------+ + | Care Operating Room Nurse Name | Role | Phone | [...] | | | | | Unintentiona | [address] | | | | | | l weight | Ave | | | | | | loss | [facility] [place] | | | | | | Abdominal | [address] | | | | | | cramping | Phone: | | | | | | Chronic | [phone] | | | | | | diarrhea | Fax: | | | | | | Rectal | [phone] | | | | | | bleeding [...] | | 2020 | | Center at [facility] [address] | [address] | | | | | [address] | [place], [place] | | | | | Mailcode: [place] | [address] | | | | | for Health and | [phone] | | | | | [facility], [address] | | | | | | [place], [place] | | | | | | [address] | | | | | | [phone] | | | +--------+ + + + [...]
--- OUTSIDE RECORDS SUMMARY | ~2020-04-15 | XMS | Encounter Summary ---
Demographics + + + | Address | [address] | | | [place] [address] | + + + | Home Phone [...] Team Providers + +------+ + | Care Reliability Technicians Name | Role | Phone | + [...] + | 06/24/ | Telephone | [facility] | Daljit Singletary, | Lab Order | | 2017 | | CARDIOLOGY [address] | MD [address] | | | | | [place], | [place], | | | | | [place] [address] | [place] [address] | | | | | [phone] | [phone] | | | | | | | [...] | | | | | | [place] [address] | | | | | | [phone] | | | | | | | | +--------+ + + + + | 05/01/ | Procedure | Cardiology | | | | 2019 | visit | | | | +--------+ + + + + | 05/01/ | Office | Cardiology | Silvia, | | | 2019 | Visit | | PARISA [facility] [address] | | | | | | [place], | | | | | | [place] [address] | | | | | | [phone] | | | | | | | | +--------+ + + + + | 05/21/ | Implant | Cardiology | Daljit Singletary, | Remote Device | | 2019 | Monitor | | MD [address] | Interrogation | | | | | [place], | (Primary Dx); | | | | | [place] [address] | Pacemaker; | | | | | [phone] | Sinoatrial node | | | | [...] 06/24/2018, Expires: | | | | | mechoopda coronary | 06/24/2019 | | | | | artery of mechoopda | | | | | | heart without angina | | | | | | pectoris | | | | | | Hyperlipidemia, | | | | | | mixed | | + +------+--------+ + + documented as of this encounter Visit Diagnoses + + | Diagnosis | + + | Coronary artery disease involving mechoopda coronary artery of mechoopda heart without | | angina pectoris - Primary | + + | Hyperlipidemia, mixed Mixed hyperlipidemia | + + documented in this encounter"
--- OUTSIDE RECORDS SUMMARY | ~2020-04-15 | XMS | Encounter Summary ---
Demographics + + + | Address | [address] | | | [place] [address] | + + + | Home Phone [...] Team Providers + +------+ + | Care Adhesive Bandage Machine Operator Name | Role | Phone | + +------+ + | iKrk French MD | PCP | | + +------+ + Reason for Visit + + + | Reason | Comments | + + + | Referral Question | | + + + Encounter Details +--------+ + + + + | Date | Type | Department | Care Team | Description | +--------+ + + + + | 07/13/ | Telephone | [facility] | Kirk French | Referral Question | | 2019 | | [facility] | MD [address] | | | | | [address] | [address] | | | | | [address] | [place] [address] | | | | | [place], [place] | [phone] | | | | | [address] | | | | | | [phone] | | | +--------+ + + + [...] | | | | | | [place] [address] | | | | | | [phone] | | | | | | | | +--------+ + + + + | 05/01/ | Procedure | Cardiology | | | | 2019 | visit | | | | +--------+ + + + + | 05/01/ | Office | Cardiology | Silvia, | | | 2019 | Visit | | PARISA Vernon [address] | | | | | | [place], | | | | | | [place] [address] | | | | | | [phone] | | | | | | | | +--------+ + + + + | 05/21/ | Implant | Cardiology | Daljit Singletary, | Remote Device | | 2019 | Monitor | | [address] [place] | Interrogation | | | | | [place], | (Primary Dx); | | | | | [place] [address] | Pacemaker; | | | | | [phone] | Sinoatrial node | | | | | | dysfunction (HCC) | | | | | | with symptomatic | | | | | | bradycardia | +--------+ + + + + documented as of this encounter Visit Diagnoses Not on filedocumented in this encounter"
--- OUTSIDE RECORDS SUMMARY | ~2020-04-15 | XMS | Encounter Summary ---
Demographics + + + | Address | [address] | | | [place] [address] | + + + | Home Phone [...] Providers + +------+ + | Care Senior Restaurant Manager Name | Role | Phone | + +------+ + | Michael Amanda DO | PCP | | + +------+ + Encounter Details +--------+ + + + + | Date | Type | Department | Care Team | Description | +--------+ + + + + | 01/31/ | Hospital | [facility] | Adrian Gutierrez MD | | | 2012 | Encounter | [facility] | [address] | | | | | EMERGENCY CENTER | [place], [place] | | | | | [address] | [address] | | | | | [place] | [phone] | | | | | [address] | | | | | | [phone] | | | +--------+ + + + [...] + + + +---------+ + + | Colts Neck-3 Fatty | CAPS, one capsule by | [...] | | | | | | [place] [address] | | | | | | [phone] | | | | | | | | +--------+ + + + + | 05/01/ | Procedure | Cardiology | | | | 2019 | visit | | | | +--------+ + + + + | 05/01/ | Office | Cardiology | Silvia, | | | 2019 | Visit | | PARISA Vernon W | | | | | | [place], | | | | | | [place] [address] | | | | | | [phone] | | | | | | | | +--------+ + + + + | 05/21/ | Implant | Cardiology | Daljit Singletary, | Remote Device | 2019 | Monitor | | MD [place] | Interrogation | | | | | [place], | (Primary Dx); | | | | | [place] [address] | Pacemaker; | | | | | [phone] | Sinoatrial node | | | | [...] + + + | Exam Performed Location: [facility] TWO-VIEW | MISCELANIOUS | | CHEST CLINICAL [...] | an acute cardiopulmonary process. S: SQ ([id number]) Signed by: | | | JAYNE SPEAR MD | | + + + + + | Procedure Note | + + | Kevin, Rad Conversion - 09/13/2013 10:25 PM PDT Exam Performed Location: [facility] | | at [facility] HeartTWO-VIEW CHESTCLINICAL INFORMATION:Shortness of | | breath.COMPARISON:None.FINDINGS:There is a left subclavian dual lead cardiac pacer. The | | heart sizeand mediastinal contours are normal. The pulmonary vasculature isnormal. No | | focal airspace opacities, pleural effusions, orpneumothorax. Cervical fusion hardware | | is noted. No acute osseousfindings.IMPRESSION:No evidence of an acute cardiopulmonary | | process.S: SQ ([id number]) Signed by: JAYNE SPEAR MD | |COMPARISON: [...] | | | | | |S: SQ ([id number]) Signed by: JANYE SPEAR MD | + + + +---------+ + + | Performing | Address | City/State/Zipcode | Phone Number | | Organization | | | | + +---------+ + + | MISCELLANEOUS LAB | | | [phone] | + +---------+ + + | MISCELANIOUS LAB | | | [phone] | + +---------+ + + Troponin I [...] + + | [facility] | [address] | [place] [address] | | | [facility] | [...] + + | [facility] | [address] | [place] [address] | | | [facility] | [...] + + | [facility] | [address] | [place] [address] | | | [facility] | [...] + + | [facility] | [address] | [place] [address] | | | [facility] | | | | | LABORATORY | | | | + + + + + | [facility] | | | | | [facility] | | | | | [...] + + | Glucose | 154 (H)Comment: Moroccan | 65 - 99 mg/dL | [facility] [...] + + | [facility] | [address] | [place] [address] | | | [facility] | | | | | LABORATORY | | | | + + + + + | [facility] | | | | | [facility] | | | | | LABORATORY | | | | + + + + + documented in this encounter Visit Diagnoses Not on filedocumented in this encounter"
--- OUTSIDE RECORDS SUMMARY | ~2020-04-15 | XMS | Encounter Summary ---
Demographics + + + | Address | [address] | | | [place] [address] | + + + | Home Phone [...] Team Providers + +------+ + | Care Sky Diver Name | Role | Phone | + [...] | | | | [place] | | [address] Phone: | | | | | CYSTO/URETER | | [phone] | | | | | O | | Fax: | | | | | W/LITHOTRIPS | | [phone] | | | | | Y &INDWELL [...] | | | | | [address] | [place] | | | | | [place] | [address] | | | | | [address] | | | | | | [phone] | | | +--------+ + + + [...] +----+---+ + + | | 0 | [place] | | | | 8 | 43-degrees | | | | 2 | | | | | 7 | | | +----+---+ + + | | 0 | First | | | | 8 | Inc/Proc St | | | | 2 | | | | | 8 | | | +----+---+ + + | | 0 | [place] off | | | | 9 | [...] 04/13/19 1219 by | | eral | gdwn-spa-oobsmo catheter system; | Dominga Steen RN | [...] | | | | | | [place] [address] | | | | | | [phone] | | | | | | | | +--------+ + + + + | 05/01/ | Procedure | Cardiology | | | | 2019 | visit | | | | +--------+ + + + + | 05/01/ | Office | Cardiology | Silvia, | | | 2019 | Visit | | PARISA Vernon [address] | | | | | | [place], | | | | | | [place] [address] | | | | | | [phone] | | | | | | | | +--------+ + + + + | 05/21/ | Implant | Cardiology | Daljit Singletary, | Remote Device | | 2019 | Monitor | | MD [address] [place] | Interrogation | | | | | [place], | (Primary Dx); | | | | | [place] [address] | Pacemaker; | | | | | [phone] | Sinoatrial node | | | | | | dysfunction ([facility]) | | | | | | with [...]
--- OUTSIDE RECORDS SUMMARY | ~2020-04-15 | XMS | Encounter Summary ---
Demographics + + + | Address | [address] | | | [place] [address] | + + + | Home Phone [...] + + +---------+ + | Maria Isabel Sanchze | ECON | Unknown | | + + +---------+ + Care Team Providers + +------+ + | Care Counter Hop Name | Role | Phone | + +------+ + PCP | Unavailable | + +------+ + Encounter Details +--------+ + + + + | Date | Type | Department | Care Team | Description | +--------+ + + + + | 02/07/ | [facility] | [facility] | Unknown, | | | 1995 | Encounter | MED CTR XRAY [address] | MD Stefany . | | | | | [place] | | | | | | [place] [address] | (Fax) | | | | | [phone] | | | +--------+ + + + [...] | | | | | | [place] [address] | | | | | | [phone] | | | | | | | | +--------+ + + + + | 05/01/ | Procedure | Cardiology | | | | 2019 | visit | | | | +--------+ + + + + | 05/01/ | Office | Cardiology | Silvia, | | | 2019 | Visit | | PARISA Vernon [address] | | | | | | [place], | | | | | | [place] [address] | | | | | | [phone] | | | | | | | | +--------+ + + + + | 05/21/ | Implant | Cardiology | Daljit Singletary, | Remote Device | | 2019 | Monitor | | [address] [place] | Interrogation | | | | | [place], | (Primary Dx); | | | | | [place] [address] | Pacemaker; | | | | | [phone] | Sinoatrial node | | | | | | dysfunction (HCC) | | | | | | with symptomatic | | | | | | bradycardia | +--------+ + + + + documented as of this encounter Visit Diagnoses Not on filedocumented in this encounter"
--- OUTSIDE RECORDS SUMMARY | ~2020-04-15 | XMS | Encounter Summary ---
Demographics + + + | Address | [address] | | | [place] [address] | + + + | Home Phone [...] Amanda, | | | 2013 | | [facility] | DO [address] | | | | | [address] | [place] | | | | | [place] | [address] | | | | | [address] | | | | | | [phone] | | | +--------+ + + + [...] | | | | | | [place] [address] | | | | | | [phone] | | | | | | | | +--------+ + + + + | 05/01/ | Procedure | Cardiology | | | | 2019 | visit | | | | +--------+ + + + + | 05/01/ | Office | Cardiology | Silvia, | | | 2019 | Visit | | PARISA Vernon [address] | | | | | | [place], | | | | | | [place] [address] | | | | | | [phone] | | | | | | | | +--------+ + + + + | 05/21/ | Implant | Cardiology | Daljit Singletary, | Remote Device | | 2019 | Monitor | | [address] [place] | Interrogation | | | | | [place], | (Primary Dx); | | | | | [place] [address] | Pacemaker; | | | | | [phone] | Sinoatrial node | | | | | | dysfunction (HCC) | | | | | | with symptomatic | | | | | | bradycardia | +--------+ + + + + documented as of this encounter Visit Diagnoses Not on filedocumented in this encounter"
--- OUTSIDE RECORDS SUMMARY | ~2020-04-15 | XMS | Encounter Summary ---
Demographics + + + | Address | [address] | | | [place] [address] | + + + | Home Phone [...] Team Providers + +------+ + | Care Tanning Wheel Operator Name | Role | Phone | [...] + + | 06/18/ | Emergency | [facility] | Dom Graham, | Cervical pain (neck) | | 2013 | | MED CTR EMERGENCY | MD [address] | (Primary Dx); | | | | CENTER [address] | [place] | Paresthesia and pain | | | | [place], [place] | [address] | of both upper | | | | [address] | | extremities | | | | [phone] | | | +--------+ + + + [...] cannot be sent through Care Everywhere.PARAESTHESIAS ( MACEDONIAN)NECK SPRAIN/STRAIN (MACEDONIAN)documented in this encounter Medications at Time of [...] + + + +---------+ + + | Bryan-3 Fatty | CAPS, one capsule by | [...] W | | | | | | [place], | | | | | | [place] [address] | | | | | | [phone] | | | | | | | | +--------+ + + + + | 05/01/ | Procedure | Cardiology | | | | 2019 | visit | | | | +--------+ + + + + | 05/01/ | Office | Cardiology | Silvia, | | | 2019 | Visit | | PARISA Vernon [address] | | | | | | [place], | | | | | | [place] [address] | | | | | | [phone] | | | | | | | | +--------+ + + + + | 05/21/ | Implant | Cardiology | Daljit Singletary, | Remote Device | | 2019 | Monitor | | MD [address] [place] | Interrogation | | | | | [place], | (Primary Dx); | | | | | [place] [address] | Pacemaker; | | | | | [phone] | Sinoatrial node | | | | [...] + | MISCELLANEOUS LAB | | | [phone] | + +---------+ + + | MISCELANIOUS LAB | | | [phone] | + +---------+ + + documented in this encounter Visit Diagnoses + + | Diagnosis | + + | Cervical pain (neck) - Primary Cervicalgia | + + | Paresthesia and pain of both upper extremities Disturbance of skin sensation | + + documented in this encounter
--- OUTSIDE RECORDS SUMMARY | ~2020-04-15 | XMS | Encounter Summary ---
Demographics + + + | Address | [address] | | | [place] [address] | + + + | Home Phone [...] [address] | | | | | [place], | [place], | | | | | [place] [address] | [place] [address] | | | | | [phone] | [phone] | | | | | | | [...] W | | | | | | [place], | | | | | | [place] [address] | | | | | | [phone] | | | | | | | | +--------+ + + + + | 05/01/ | Procedure | Cardiology | | | | 2019 | visit | | | | +--------+ + + + + | 05/01/ | Office | Cardiology | Silvia, | | | 2019 | Visit | | PARISA Vernon [address] | | | | | | [place], | | | | | | [place] [address] | | | | | | [phone] | | | | | | | | +--------+ + + + + | 05/21/ | Implant | Cardiology | Daljit Singletary, | Remote Device | | 2019 | Monitor | | [address] [facility] | Interrogation | | | | | [place], | (Primary Dx); | | | | | [place] [address] | Pacemaker; | | | | | [phone] | Sinoatrial node | | | | | | dysfunction (HCC) | | | | | | with symptomatic | | | | | | bradycardia | +--------+ + + + + documented as of this encounter Visit Diagnoses Not on filedocumented in this encounter"
--- OUTSIDE RECORDS SUMMARY | ~2020-04-15 | XMS | Encounter Summary ---
Demographics + + + | Address | [address] | | | [place] [address] | + + + | Home Phone [...] Providers + +------+ + | Care Aircraft Painter Apprentice Name | Role | Phone | [...] Provider Unknown | | | | | [place], [place] | [phone] | | | | | [address] | | | | | | [phone] | | | +--------+ + + + [...] + + + +---------+ + + | Brilli[place]-3 Fatty | CAPS, one capsule by | [...] | | | | | | [place] [address] | | | | | | [phone] | | | | | | | | +--------+ + + + + | 05/01/ | Procedure | Cardiology | | | | 2019 | visit | | | | +--------+ + + + + | 05/01/ | Office | Cardiology | Silvia, | | | 2019 | Visit | | [address] | | | | | | [place], | | | | | | [place] [address] | | | | | | [phone] | | | | | | | | +--------+ + + + + | 05/21/ | Implant | Cardiology | Daljit Singletary, | Remote Device | | 2019 | Monitor | | [facility] | Interrogation | | | | | [place], | (Primary Dx); | | | | | [place] [address] | Pacemaker; | | | | | [phone] | Sinoatrial node | | | | [...]
--- OUTSIDE RECORDS SUMMARY | ~2020-04-15 | XMS | Encounter Summary ---
Demographics + + + | Address | [address] | | | [place] [address] | + + + | Home Phone [...] Providers + +------+ + | Care Program Planner Name | Role | Phone | + [...] [address] | | | | | | [place], [place] | (Fax) | | | | | [address] | | | | | | [phone] | | | +--------+ + + + [...] | | | | | | [place] [address] | | | | | | [phone] | | | | | | | | +--------+ + + + + | 05/01/ | Procedure | Cardiology | | | | 2019 | visit | | | | +--------+ + + + + | 05/01/ | Office | Cardiology | Silvia, | | | 2019 | Visit | | PARISA [address] | | | | | | [place], | | | | | | [place] [address] | | | | | | [phone] | | | | | | | | +--------+ + + + + | 05/21/ | Implant | Cardiology | Daljit Singletary, | Remote Device | | 2019 | Monitor | | [address] [place] | Interrogation | | | | | [place], | (Primary Dx); | | | | | [place] [address] | Pacemaker; | | | | | [phone] | Sinoatrial node | | | | | | dysfunction (HCC) | | | | | | with symptomatic | | | | | | bradycardia | +--------+ + + + + documented as of this encounter Visit Diagnoses Not on filedocumented in this encounter"
--- OUTSIDE RECORDS SUMMARY | ~2020-04-15 | XMS | Encounter Summary ---
Demographics + + + | Address | [address] | | | [place] [address] | + + + | Home Phone [...] Team Providers + +------+ + | Care Reconciliation Analyst Name | Role | Phone | [...] [address] | | | | | [place], | [place], | | | | | [place] [address] | [place] [address] | | | | | [phone] | [phone] | | | | | | | [...] | | | | | | [place] [address] | | | | | | [phone] | | | | | | | | +--------+ + + + + | 05/01/ | Procedure | Cardiology | | | | 2019 | visit | | | | +--------+ + + + + | 05/01/ | Office | Cardiology | Silvia, | | | 2019 | Visit | | [address] | | | | | | [place], | | | | | | [place] [address] | | | | | | [phone] | | | | | | | | +--------+ + + + + | 05/21/ | Implant | Cardiology | Daljit Singletary, | Remote Device | | 2019 | Monitor | | [facility] | Interrogation | | | | | [place], | (Primary Dx); | | | | | [place] [address] | Pacemaker; | | | | | [phone] | Sinoatrial node | | | | | | dysfunction (HCC) | | | | | | with symptomatic | | | | | | bradycardia | +--------+ + + + + documented as of this encounter Visit Diagnoses Not on filedocumented in this encounter"
--- OUTSIDE RECORDS SUMMARY | ~2020-04-15 | XMS | Encounter Summary ---
Demographics + + + | Address | [address] | | | [place] [address] | + + + | Home Phone [...] Providers + +------+ + | Care Network Engineer Name | Role | Phone | [...] | CENTER [address] | [place], [place] | insufficiency | | | | [place], [place] | [address] | | | | | [address] | | | | | | [phone] | | | +--------+ + + + [...] sent through Care Everywhere.PERIPHERAL KENYETTA A, BILATERAL (SLOVENIAN)documented in this encounter Medications at Time of [...] + + + +---------+ + + | Combs-3 Fatty | CAPS, one capsule by | [...] | | | | | | | #[id number], exp 07/2016 | | | | | [...] | | | | | | [place] [address] | | | | | | [phone] | | | | | | | | +--------+ + + + + | 05/01/ | Procedure | Cardiology | | | | 2019 | visit | | | | +--------+ + + + + | 05/01/ | Office | Cardiology | Silvia, | | | 2019 | Visit | | PARISA Vernon [address] | | | | | | [place], | | | | | | [place] [address] | | | | | | [phone] | | | | | | | | +--------+ + + + + | 05/21/ | Implant | Cardiology | Daljit Singletary, | Remote Device | | 2019 | Monitor | | [address] [place] | Interrogation | | | | | [place], | (Primary Dx); | | | | | [place] [address] | Pacemaker; | | | | | [phone] | Sinoatrial node | | | | [...]
--- OUTSIDE RECORDS SUMMARY | ~2020-04-15 | XMS | Encounter Summary ---
Demographics + + + | Address | [address] | | | [place] [address] | + + + | Home Phone [...] Providers + +------+ + | Care Senior Copywriter Name | Role | Phone | + [...] Eva R[address]SE | | | | | [place], [place] | [address] | | | | | [address] | [place] [address] | | | | | [phone] | [phone] | | | | | | | [...] W | | | | | | [place], | | | | | | [place] [address] | | | | | | [phone] | | | | | | | | +--------+ + + + + | 05/01/ | Procedure | Cardiology | | | | 2019 | visit | | | | +--------+ + + + + | 05/01/ | Office | Cardiology | Silvia, | | | 2019 | Visit | | [address] | | | | | | [place], | | | | | | [place] [address] | | | | | | [phone] | | | | | | | | +--------+ + + + + | 05/21/ | Implant | Cardiology | Daljit Singletary, | Remote Device | 2019 | Monitor | | [address] [place] | Interrogation | | | | | [place], | (Primary Dx); | | | | | [place] [address] | Pacemaker; | | | | | [phone] | Sinoatrial node | | | | [...] | | | Basophils | performed at [facility];[address] | 10*3/uL | LAB | | | | [address] | | | | | | [address];[place] [address] | | | | + + + [...] | | | | | [place] [address] | | | | + + + [...] | | | | | | at [facility];[address] [facility] | | | | | | [facility];[place], [place] | | | | | | [address] | | | | + + + [...]
--- OUTSIDE RECORDS SUMMARY | ~2020-04-15 | XMS | Encounter Summary ---
Demographics + + + | Address | [address] | | | [place] [address] | + + + | Home Phone [...] Team Providers + +------+ + | Care Casserole Preparer Name | Role | Phone | + +------+ + | Kirk French MD | PCP | | + +------+ + Reason for Visit +--------+ + | Reason | Comments | +--------+ + | Other | plan of care | +--------+ + Encounter Details +--------+ + + + + | Date | Type | Department | Care Team | Description | +--------+ + + + + | 01/12/ | Telephone | [facility] [place] | [place]via, | Other (plan of care) | | 2018 | | CARDIOLOGY [address] | PARISA [place] [address] | | | | | [place], | [place], | | | | | [place] [address] | [place] [address] | | | | | [phone] | [phone] | | | | | | | [...] | | | | | | [place] [address] | | | | | | [phone] | | | | | | | | +--------+ + + + + | 05/01/ | Procedure | Cardiology | | | | 2019 | visit | | | | +--------+ + + + + | 05/01/ | Office | Cardiology | Silvia | | | 2019 | Visit | | Janeen, REPORT CLERK [address] | | | | | | [place], | | | | | | [place] [address] | | | | | | [phone] | | | | | | | | +--------+ + + + + | 05/21/ | Implant | Cardiology | Daljit Singletary, | Remote Device | | 2020 | Monitor | | MD [address] [place] | Interrogation | | | | | [place], | (Primary Dx); | | | | | [place] [address] | Pacemaker; | | | | | [phone] | Sinoatrial node | | | | | | dysfunction (HCC) | | | | | | with symptomatic | | | | | | bradycardia | +--------+ + + + + documented as of this encounter Visit Diagnoses Not on filedocumented in this encounter"
--- OUTSIDE RECORDS SUMMARY | ~2020-04-15 | XMS | Encounter Summary ---
Demographics + + + | Address | [address] | | | [place] [address] | + + + | Home Phone [...] Team Providers + +------+ + | Care Acidizer Water Well Name | Role | Phone | + [...] Refill | | 2012 | | MEDICINE [place] | DO [address] | | | | | [address] | [place] | | | | | [place] | [address] | | | | | [address] | | | | | | [phone] | | | +--------+--------+ + + + [...] W | | | | | | [place], | | | | | | [place] [address] | | | | | | [phone] | | | | | | | | +--------+ + + + + | 05/01/ | Procedure | Cardiology | | | | 2019 | visit | | | | +--------+ + + + + | 05/01/ | Office | Cardiology | Silvia, | | | 2019 | Visit | | PARISA [address] | | | | | | [place], | | | | | | [place] [address] | | | | | | [phone] | | | | | | | | +--------+ + + + + | 05/21/ | Implant | Cardiology | Daljit Singletary, | Remote Device | | 2019 | Monitor | | [facility] | Interrogation | | | | | [place], | (Primary Dx); | | | | | [place] [address] | Pacemaker; | | | | | [phone] | Sinoatrial node | | | | | | dysfunction (HCC) | | | | | | with symptomatic | | | | | | bradycardia | +--------+ + + + + documented as of this encounter Visit Diagnoses Not on filedocumented in this encounter"
--- OUTSIDE RECORDS SUMMARY | ~2020-04-15 | XMS | Encounter Summary ---
Demographics + + + | Address | [address] | | | [place] [address] | + + + | Home Phone [...] Team Providers + +------+ + | Care Parer Name | Role | Phone | + [...] | 07/07/ | Telephone | [facility] [place] | Daljit Singletary, | Appointment | | 2012 | | CARDIOLOGY [address] | MD [address] [place] | | | | | [place], | [place], | | | | | [place] [address] | [place] [address] | | | | | [phone] | [phone] | | | | | | | [...] W | | | | | | [place], | | | | | | [place] [address] | | | | | | [phone] | | | | | | | | +--------+ + + + + | 05/01/ | Procedure | Cardiology | | | | 2019 | visit | | | | +--------+ + + + + | 05/01/ | Office | Cardiology | [place]via, | | | 2019 | Visit | | PARISA [address] | | | | | | [place], | | | | | | [place] [address] | | | | | | [phone] | | | | | | | | +--------+ + + + + | 05/21/ | Implant | Cardiology | Daljit Singletary, | Remote Device | | 2020 | Monitor | | MD Sim [facility] | Interrogation | | | | | [place], | (Primary Dx); | | | | | [place] [address] | Pacemaker; | | | | | [phone] | Sinoatrial node | | | | | | dysfunction (HCC) | | | | | | with symptomatic | | | | | | bradycardia | +--------+ + + + + documented as of this encounter Visit Diagnoses Not on filedocumented in this encounter"
--- OUTSIDE RECORDS SUMMARY | ~2020-04-15 | XMS | Encounter Summary ---
Demographics + + + | Address | [address] | | | [place] [address] | + + + | Home Phone [...] Providers + +------+ + | Care Information Consultant Name | Role | Phone | [...] | | | type | | [place] [address] | | | | | Unintentiona | | Phone: | | | | | l weight | | [phone] | | | | | loss | | Fax: | | | | | Pacemaker | | [phone] | | | | | Opioid type [...] | | | | | | | [place] | | | | | | | COLONOSCOPY | | | | | | | FLX DX | | | | | | | W/COLLJ SPEC | | | | | | | WHEN PFRMD | | | | | | | [place] | | | | | | | COLONOSCOPY | | | | | | | W/BIOPSY | | | | | | | SINGLE/MULTI | | | | | | | PLE FL | | | | | | | COLSC FLX | | | | | | | W/RMVL OF | | | | | | | TUMOR POLYP | | | | | | | LESION SNARE | | | | | | | TQ FL | | | | | | | [...] + + | 01/21/ | Hospital | [facility] | Darin Gandhi | Rectal bleeding; | | 2019 | Encounter | MED CTR MP INTRA OP | MD Jacek [address] | Diarrhea, | | | | [address] [place] | [address] [place] | unspecified type; | | | | [place], [place] | [place] [address] | Unintentional weight | | | | [address] | [phone] | loss; Opioid type | | | | [phone] | | dependence, | | | | | | continuous ([facility]); | | | | | | Allergy [...] | | | | | | [place] [address] | | | | | | [phone] | | | | | | | | +--------+ + + + + | 05/01/ | Procedure | Cardiology | | | | 2019 | visit | | | | +--------+ + + + + | 05/01/ | Office | Cardiology | [place], | | | 2019 | Visit | | PARISA Vernon W | | | | | | [place], | | | | | | [place] [address] | | | | | | [phone] | | | | | | | | +--------+ + + + + | 05/21/ | Implant | Cardiology | Daljit Singletary, | Remote Device | | 2019 | Monitor | | [address] [place] | Interrogation | | | | | [place], | (Primary Dx); | | | | | [place] [address] | Pacemaker; | | | | | [phone] | Sinoatrial node | | | | [...] w[place] heart without | | angina pectoris | [...]
--- OUTSIDE RECORDS SUMMARY | ~2020-04-15 | XMS | Encounter Summary ---
Demographics + + + | Address | [address] | | | [place] [address] | + + + | Home Phone [...] Team Providers + +------+ + | Care Dry Cleaner Hand Name | Role | Phone | + +------+ + | Kirk French MD | PCP | | + +------+ + Encounter Details +--------+ + + + + | Date | Type | Department | Care Team | Description | +--------+ + + + + | 03/15/ | Hospital | [facility] | Conversion | | | 2017 | Encounter | [facility] | Transaction, | | | | | [address] | Provider Unknown | | | | | [address] [place] | [phone] | | | | | [address] | | | | | | [phone] | Kirk French | | | | | | MD Brea [address] | | | | | | [address] [place], | | | | | | [place] [address] | | | | | | [phone] | | | | | | | [...] + + + +---------+ + + | [place]-3 Fatty | CAPS, one capsule by | [...] | | | | | | [place] [address] | | | | | | [phone] | | | | | | | | +--------+ + + + + | 05/01/ | Procedure | Cardiology | | | | 2019 | visit | | | | +--------+ + + + + | 05/01/ | Office | Cardiology | [place], | | | 2019 | Visit | | PARISA Vernon W | | | | | | [place], | | | | | | [place] [address] | | | | | | [phone] | | | | | | | | +--------+ + + + + | 05/21/ | Implant | Cardiology | Daljit Singletary, | Remote Device | | 2019 | Monitor | | [address] [place] | Interrogation | | | | | [place], | (Primary Dx); | | | | | [place] [address] | Pacemaker; | | | | | [phone] | Sinoatrial node | | | | | | dysfunction (HCC) | | | | | | with symptomatic | | | | | | bradycardia | +--------+ + + + + documented as of this encounter Visit Diagnoses Not on filedocumented in this encounter"
--- OUTSIDE RECORDS SUMMARY | ~2020-04-15 | XMS | Encounter Summary ---
Demographics + + + | Address | [address] | | | [place] [address] | + + + | Home Phone [...] Team Providers + +------+ + | Care Jar Capper Name | Role | Phone | + +------+ + PCP | Unavailable | + +------+ + Encounter Details +--------+ + + + + | Date | Type | Department | Care Team | Description | +--------+ + + + + | 05/02/ | [facility] | [facility] | Jonathan, | | | 2009 | Encounter | MED CTR EMERGENCY | Martell Cr MD [address] | | | | | CENTER [address] [place] | [place] | | | | | [place] | [place] [address] | | | | | [address] | [phone] | | | | | [phone] | | | +--------+ + + + [...] | | | | | | [place] [address] | | | | | | [phone] | | | | | | | [...] | | | | | | [place] [address] | | | | | | [phone] | | | | | | | | +--------+ + + + + | 05/21/ | Implant | Cardiology | Daljit Singletary, | Remote Device | 2019 | Monitor | | MD [address] [place] | Interrogation | | | | | [place], | (Primary Dx); | | | | | [place] [address] | Pacemaker; | | | | | [phone] | Sinoatrial node | | | | | | dysfunction (HCC) | | | | | | with symptomatic | | | | | | bradycardia | +--------+ + + + + documented as of this encounter Visit Diagnoses Not on filedocumented in this encounter"
--- OUTSIDE RECORDS SUMMARY | ~2020-04-15 | XMS | Encounter Summary ---
Demographics + + + | Address | [address] | | | [place] [address] | + + + | Home Phone [...] Providers + +------+ + | Care Art Specialist Name | Role | Phone | + +------+ + | Michael Amanda DO | PCP | | + +------+ + Encounter Details +--------+ + + + + | Date | Type | Department | Care Team | Description | +--------+ + + + + | 09/22/ | Hospital | [facility] | Bahman Gant MD | | | 2012 | Encounter | MED CTR XRAY [address] | [address] [place] | | | | | [place] | [address] [place], | | | | | [place] [address] | [place] [address] | | | | | [phone] | [phone] | | | | | | | [...] + + + +---------+ + + | [place]-3 Fatty | CAPS, one capsule by | [...] | | | | | | [place] [address] | | | | | | [phone] | | | | | | | | +--------+ + + + + | 05/01/ | Procedure | Cardiology | | | | 2019 | visit | | | | +--------+ + + + + | 05/01/ | Office | Cardiology | [place], | | | 2019 | Visit | | PARISA [place] [address] | | | | | | [place], | | | | | | [place] [address] | | | | | | [phone] | | | | | | | | +--------+ + + + + | 05/21/ | Implant | Cardiology | Daljit Singletary, | Remote Device | 2019 | Monitor | | [address] [facility] | Interrogation | | | | | [place], | (Primary Dx); | | | | | [place] [address] | Pacemaker; | | | | | [phone] | Sinoatrial node | | | | | | dysfunction (HCC) | | | | | | with symptomatic | | | | | | bradycardia | +--------+ + + + + documented as of this encounter Visit Diagnoses Not on filedocumented in this encounter"
--- OUTSIDE RECORDS SUMMARY | ~2020-04-15 | XMS | Encounter Summary ---
Demographics + + + | Address | [address] | | | [place] [address] | + + + | Home Phone [...] [facility] | | | [...] + +------+ + | Care Optical Instrument Specialist Name | Role | Phone | + +------+ + PCP | Unavailable | + +------+ + Encounter Details +--------+ + + + + | Date | Type | Department | Care Team | Description | +--------+ + + + + | 01/31/ | Hospital | [facility] | | | | 2008 | Encounter | MED CTR EMERGENCY | | | | | | [place] [address] | | | | | | [place] | | | | | | [address] | | | | | | [phone] | | | +--------+ + + + [...] | | | | | | [place] [address] | | | | | | [phone] | | | | | | | | +--------+ + + + + | 05/01/ | Procedure | Cardiology | | | | 2019 | visit | | | | +--------+ + + + + | 05/01/ | Office | Cardiology | [place], | | | 2019 | Visit | | [address] | | | | | | [place], | | | | | | [place] [address] | | | | | | [phone] | | | | | | | | +--------+ + + + + | 05/21/ | Implant | Cardiology | Daljit Singletary, | Remote Device | 2019 | Monitor | | [address] | Interrogation | | | | | [place], | (Primary Dx); | | | | | [place] [address] | Pacemaker; | | | | | [phone] | Sinoatrial node | | | | | | dysfunction (HCC) | | | | | | with symptomatic | | | | | | bradycardia | +--------+ + + + + documented as of this encounter Visit Diagnoses Not on filedocumented in this encounter"
--- OUTSIDE RECORDS SUMMARY | ~2020-04-15 | XMS | Encounter Summary ---
Demographics + + + | Address | [address] | | | [place] [address] | + + + | Home Phone [...] Team Providers + +------+ + | Care Removable Prosthodontist Name | Role | Phone | + +------+ + | Kirk French MD | PCP | | + +------+ + Reason for Visit + + + | Reason | Comments | + + + | Lab Order | due for fasting labs prior to appt | + + + Encounter Details +--------+ + + + + | Date | Type | Department | Care Team | Description | +--------+ + + + + | 06/17/ | Telephone | [facility] [place] | [place], | Lab Order (due for | | 2015 | | CARDIOLOGY [address] | [address] [place] [address] | fasting labs prior | | | | [place], | [place], | to appt) | | | | [place] [address] | [place] [address] | | | | | [phone] | [phone] | | | | | | | [...] W | | | | | | [place], | | | | | | [place] [address] | | | | | | [phone] | | | | | | | | +--------+ + + + + | 05/01/ | Procedure | Cardiology | | | | 2019 | visit | | | | +--------+ + + + + | 05/01/ | Office | Cardiology | Silvia, | | | 2019 | Visit | | PARISA Vernon [address] | | | | | | [place], | | | | | | [place] [address] | | | | | | [phone] | | | | | | | | +--------+ + + + + | 05/21/ | Implant | Cardiology | Daljit Singletary, | Remote Device | 2019 | Monitor | | [address] [place] | Interrogation | | | | | [place], | (Primary Dx); | | | | | [place] [address] | Pacemaker; | | | | | [phone] | Sinoatrial node | | | | [...]
--- OUTSIDE RECORDS SUMMARY | ~2020-04-15 | XMS | Encounter Summary ---
Demographics + + + | Address | [address] | | | [place] [address] | + + + | Home Phone [...] Team Providers + +------+ + | Care Service Line Coordinator Name | Role | Phone | [...] | | | pain | [address] [place] | [address] | | | | | Procedures | [place] | [place], | | | | | [place] Nuclear | [place] | [place] | | | | | Stress Test | [address] | [address] | | | | | (Vasodilator | Phone: | Phone: | | | | | ) CHG | [phone] | [phone] | | | | | MYOCARDIAL | Fax: | Fax: | | | | | SPECT | [phone] | [phone] | | | | | MULTIPLE | | | | | | | STUDIES | | | +--------+--------+ + + + + Encounter Details +--------+ + + + + | Date | Type | Department | Care Team | Description | +--------+ + + + + | 12/06/ | Hospital | [facility] | Geri Angel, | Other chest pain | | 2013 | Encounter | MED CTR XRAY [address] | BROOM STITCHER [address] [place] | | | | | [place] | [place] | | | | | [place] [address] | [address] | | | | | [phone] | | | +--------+ + + + [...] + + +---------+ + + | [place]-3 Fatty | CAPS, one capsule by [...] | | | | | | [place] [address] | | | | | | [phone] | | | | | | | | +--------+ + + + + | 05/01/ | Procedure | Cardiology | | | | 2019 | visit | | | | +--------+ + + + + | 05/01/ | Office | Cardiology | Silvia | | | 2019 | Visit | | PARISA Vernon [address] | | | | | | [place], | | | | | | [place] [address] | | | | | | [phone] | | | | | | | | +--------+ + + + + | 05/21/ | Implant | Cardiology | Daljit Singletary, | Remote Device | 2019 | Monitor | | [address] [place] | Interrogation | | | | | [place], | (Primary Dx); | | | | | [place] [address] | Pacemaker; | | | | | [phone] | Sinoatrial node | | | | [...] At | + + + | [facility] Diagnostic Imaging | [place] | | Department [address] [place] | [facility] | | [ rep ct [address]] [ rep [facility] | | st zip] Signed | - IMAGING | | | | | Patient Name: MOE GAY | | | Physician: JACKLYN : 1960 Age: 53 Sex: M Unit | | | #: [id number] Exam Date: 12/06/13 Location: | | | [facility] Report #: [id number] Page: | | | %(RAD)RES..mtdd.print.filter("pg") of %(RAD) | | | RES..mtdd.print.filter("tpg") | | | | | | Accession Number: [id number] | | | PERSANTINE SESTAMIBI STRESS TEST, [...] Transcribed Date/Time: 12/07/2013 08:18 | | | Frame Bender: <<Signature on File>> | | | | | | Daljit Singletary MD [facility] FASE12/07/13 1321 <Electronically signed | | | by Daljit Singletary MD, [facility], FACDamien, ADELINE, YEN> Daljit | | | MD Gemini [facility] ADELINE 12/07/13 0701 Frame Bender: Cheyennex | | | [id number]/16/14 0818 PARISA Garcia | | + + + + + + + + | Performing | Address | City/State/Zipcode | Phone Number | | Organization | | | | + + + + + | [facility] | [address] | [place] | [phone] | | [facility] | | [address] | | | - IMAGING | | | | + + + + + documented in this encounter Visit Diagnoses + + | Diagnosis | + + | Other chest pain | + + documented in this encounter
--- OUTSIDE RECORDS SUMMARY | ~2020-04-15 | XMS | Encounter Summary ---
Demographics + + + | Address | [address] | | | [place] [address] | + + + | Home Phone [...] Providers + +------+ + | Care Supervisor Riprap Placing Name | Role | Phone | + [...] | | | | Sinoatrial | Geri, TREE DEADENER | [address] | | | | | node | [address] | [place], | | | | | dysfunction | [place] | [place] | | | | | (HCC) | [place] | [address] | | | | | Coronary | [address] | Phone: | | | | | artery | Phone: | [phone] | | | | | disease | [phone] | Fax: | | | | | involving | Fax: | [phone] | | | | | che[place] | [phone] | | | | | | coronary [...] | | | | | | Complete [place] | | | | | | | ECHO HEART | | | | | | | XTHORACIC,[place] | | | | | | | MPLETE W | | | | | | | DOPPLER [place] | | | | | | [...] | Visit | CARDIOLOGY [address] | TREE DEADENER [address] | dysfunction (HCC) | | | | [address] [place], | [place], [place] | with symptomatic | | | | [place] [address] | [address] | bradycardia (Primary | | | | [phone] | | Dx); Coronary | | | | | | artery disease | | | | | | involving [place] | | | | | | coronary artery of | | | | | | [place] heart without | | | | | [...] Preventative health care Coronary artery disease involving [place] coronary artery without angina pectoris Cannabis abuse, [...] 3rd dose, call 911 100 tablet 3 [place]-3 Fatty Acids (SALMON OIL-1000 PO) CAPS, one capsule by mouth daily twice daily ONE TOUCH DELICA LANCETS [facility] [...] scanned Paceart documentation and device PDF in GeneExcel for interrogation (with progr amming changes) performed [...] ventricular arrhythmia performed by Dr. Gambino at [facility] on 01/30/2013. Patient had spontaneous PVCs [...] to go back in 3 days to [place] for an attempt of ablation under general [...] dizziness. He is in class I-II of [place] Heart Association functional class. T here are [...] this chart may have been created with [employer] voice recognition software. Occasi onal wrong-word or [...] | | | | | | [place] [address] | | | | | | [phone] | | | | | | | | +--------+ + + + + | 05/01/ | Procedure | Cardiology | | | 2019 | visit | | | | +--------+ + + + + | 05/01/ | Office | Cardiology | Silvia, | | | 2019 | Visit | | [address] | | | | | | [address] [place], | | | | | | [place] [address] | | | | | | [phone] | | | | | | | | +--------+ + + + + | 05/21/ | Implant | Cardiology | Sydni Singletary, | Remote Device | | 2019 | Monitor | | [address] | Interrogation | | | | | [place], | (Primary Dx); | | | | | [place] [address] | Pacemaker; | | | | | [phone] | Sinoatrial node | | | | [...] (TTE) Demographics Patient Name VICTOR HUGO | [facility] | | [place] Room Number SARAH Patient | [facility] | | [id number] Date of Study 06/16/2016 Number | - IMAGING | | Visit Number [id number] | | | Referring Physician JOSE ARMANDO GARCIA Number Date of 1960 | | | Communications Operator LUIS FERNANDO DUARTE Age | | | 56 year(s) Interpreting | | | GURJIT TROY | | | Scrape Gatherer SYDNI SINGLETARY, | | | Gender | | | Male Nurse Procedure Type of Study TTE | | | procedure: ECHO Complete. Procedure dateDate: 06/16/2016Start: 10:55 | | | AM Technical Quality: Adequate visualizationStudy Location: Echo | | | LabIndications: CAD PILOT STATION CORONARY ARTERY 414.01/ I25.10 and | | [...] BARRY Room Number SARAH | | Patient [id number] Date of Study 06/16/2016 Number Visit Number | | [id number] Referring Physician JOSE ARMANDO GARCIA Number | | Date of 1960 Communications Operator LUIS FERNANDO DUARTE Age | | 56 year(s) Interpreting GURJIT TROY | | Scrape Gatherer SYDNI SINGLETARY, | | Gender Male NurseProcedureType of Study TTE | | procedure: ECHO Complete.Procedure dateDate: 06/16/2016Start: 10:55 AMTechnical Quality: | | Adequate visualizationStudy Location: Echo LabIndications: CAD PILOT STATION CORONARY ARTERY | | 414.01/ I25.10 and [...] ST. | [address] | [place], [place] | [phone] | | [facility] | | [address] | | | - IMAGING | | [...] | | 2. Coronary artery disease involving [place] coronary artery of | | | [place] heart without angina pectoris I25.10 414.01 ECHO [...] + + | Performing | Address | City/State/[facility] | Phone Number | | Organization | [...]
--- OUTSIDE RECORDS SUMMARY | ~2020-04-15 | XMS | Encounter Summary ---
Demographics + + + | Address | [address] | | | [place] [address] | + + + | Home Phone [...] Providers + +------+ + | Care Sr. Manager Marketing Name | Role | Phone | [...] [place], | | | | | | [place] [address] | | | | | | [phone] | | | +--------+ + + + [...] | | | | | | [place] [address] | | | | | | [phone] | | | | | | | | +--------+ + + + + | 05/01/ | Procedure | Cardiology | | | | 2019 | visit | | | | +--------+ + + + + | 05/01/ | Office | Cardiology | Silvia, | | | 2019 | Visit | | [address] | | | | | | [place], | | | | | | [place] [address] | | | | | | [phone] | | | | | | | | +--------+ + + + + | 05/21/ | Implant | Cardiology | Daljit Singletary, | Remote Device | 2019 | Monitor | | [address] | Interrogation | | | | | [place], | (Primary Dx); | | | | | [place] [address] | Pacemaker; | | | | | [phone] | Sinoatrial node | | | | | | dysfunction (HCC) | | | | | | with symptomatic | | | | | | bradycardia | +--------+ + + + + documented as of this encounter Visit Diagnoses Not on filedocumented in this encounter"
--- OUTSIDE RECORDS SUMMARY | ~2020-04-15 | XMS | Encounter Summary ---
Demographics + + + | Address | [address] | | | [place] [address] | + + + | Home Phone [...] Providers + +------+ + | Care Store Worker Name | Role | Phone | + +------+ + PCP | Unavailable | + +------+ + Encounter Details +--------+ + + + + | Date | Type | Department | Care Team | Description | +--------+ + + + + | 06/17/ | Hospital | [facility] | | | | 2008 | Encounter | MED CTR EMERGENCY | | | | | | [place] [address] | | | | | | [place] | | | | | | [address] | | | | | | [phone] | | | +--------+ + + + [...] | | | | | | [place] [address] | | | | | | [phone] | | | | | | | | +--------+ + + + + | 05/01/ | Procedure | Cardiology | | | | 2019 | visit | | | | +--------+ + + + + | 05/01/ | Office | Cardiology | Silvia, | | | 2019 | Visit | | [address] | | | | | | [place], | | | | | | [place] [address] | | | | | | [phone] | | | | | | | | +--------+ + + + + | 05/21/ | Implant | Cardiology | Daljit Singletary, | Remote Device | 2019 | Monitor | | [address] [place] | Interrogation | | | | | [place], | (Primary Dx); | | | | | [place] [address] | Pacemaker; | | | | | [phone] | Sinoatrial node | | | | | | dysfunction (HCC) | | | | | | with symptomatic | | | | | | bradycardia | +--------+ + + + + documented as of this encounter Visit Diagnoses Not on filedocumented in this encounter"
--- OUTSIDE RECORDS SUMMARY | ~2020-04-15 | XMS | Encounter Summary ---
Demographics + + + | Address | [address] | | | [place] [address] | + + + | Home Phone [...] Team Providers + +------+ + | Care Garage Door Hanger Name | Role | Phone | + +------+ + | Kirk French MD | PCP | | + +------+ + Encounter Details +--------+ + + + + | Date | Type | Department | Care Team | Description | +--------+ + + + + | 01/25/ | Emergency | [facility] | Donald Callahan, | Strain of lumbar | | 2016 | | MEDICAL [facility]ENTER | Russ, DO [address] | paraspinal muscle, | | | | EMERGENCY CENTER | [address] | initial encounter; | | | | [address] | [place], [place] | Left hip pain | | | | [place], [place] | [address] | | | | | [address] | | | | | | [phone] | | | +--------+ + + + [...] + + + +---------+ + + | [place]-3 Fatty | CAPS, one capsule by | [...] | | | | | | [place] [address] | | | | | | [phone] | | | | | | | | +--------+ + + + + | 05/01/ | Procedure | Cardiology | | | | 2019 | visit | | | | +--------+ + + + + | 05/01/ | Office | Cardiology | Silvia, | | | 2019 | Visit | | PARISA [place] [address] | | | | | | Telephone [place], | | | | | | [place] [address] | | | | | | [phone] | | | | | | | | +--------+ + + + + | 05/21/ | Implant | Cardiology | Daljit Singletary, | Remote Device | | 2019 | Monitor | | [address] | Interrogation | | | | | [place], | (Primary Dx); | | | | | [place] [address] | Pacemaker; | | | | | [phone] | Sinoatrial node | | | | [...] | + + + | PINA Jaimee VICTOR HUGO 1960 XR HIP 2 VIEW LEFT 01/25/2017 [...] + + | Kevin, Kalpesh Conversion - 07/06/2019 12:12 AM PDT PINA [...] Conversion - 07/06/2019 12:12 AM PDT PINA [id number] years MaleXR | | LUMBAR SPINE LIMITED [...]
--- OUTSIDE RECORDS SUMMARY | ~2020-04-15 | XMS | Encounter Summary ---
Demographics + + + | Address | [address] | | | [place] [address] | + + + | Home Phone [...] Providers + +------+ + | Care Research Test Engine Operator Name | Role | Phone | [...] | | | | CENTER [address] | [address] [place], [place] | | | | | [place], [place] | [address] | | | | | [address] | | | | | | [phone] | | | +--------+ + + + [...] new doc you can try [facility] at [facility] documented in this encounter Medications at Time [...] + + + +---------+ + + | [place]-3 Fatty | CAPS, one capsule by | [...] W | | | | | | [place], | | | | | | [place] [address] | | | | | | [phone] | | | | | | | | +--------+ + + + + | 05/01/ | Procedure | Cardiology | | | | 2019 | visit | | | | +--------+ + + + + | 05/01/ | Office | Cardiology | Silvia, | | | 2019 | Visit | | [address] | | | | | | [place], | | | | | | [place] [address] | | | | | | [phone] | | | | | | | | +--------+ + + + + | 05/21/ | Implant | Cardiology | Daljit Singletary, | Remote Device | 2019 | Monitor | | MD [address] | Interrogation | | | | | [place], | (Primary Dx); | | | | | [place] [address] | Pacemaker; | | | | | [phone] | Sinoatrial node | | | | [...]
--- OUTSIDE RECORDS SUMMARY | ~2020-04-15 | XMS | Encounter Summary ---
Demographics + + + | Address | [address] | | | [place] [address] | + + + | Home Phone [...] Providers + +------+ + | Care Electronics Commodity Manager Name | Role | Phone | [...] | RN | | | | | [place], | | | | | | [place] [address] | | | | | | [phone] | | | +--------+ + + + [...] | | | | | | [place] [address] | | | | | | [phone] | | | | | | | | +--------+ + + + + | 05/01/ | Procedure | Cardiology | | | | 2019 | visit | | | | +--------+ + + + + | 05/01/ | Office | Cardiology | Silvia, | | | 2019 | Visit | | [address] | | | | | | [place], | | | | | | [place] [address] | | | | | | [phone] | | | | | | | | +--------+ + + + + | 05/21/ | Implant | Cardiology | Daljit Singletary, | Remote Device | 2019 | Monitor | | [address] [place] | Interrogation | | | | | [place], | (Primary Dx); | | | | | [place] [address] | Pacemaker; | | | | | [phone] | Sinoatrial node | | | | | | dysfunction (HCC) | | | | | | with symptomatic | | | | | | bradycardia | +--------+ + + + + documented as of this encounter Visit Diagnoses Not on filedocumented in this encounter"
--- OUTSIDE RECORDS SUMMARY | ~2020-04-15 | XMS | Encounter Summary ---
Demographics + + + | Address | [address] | | | [place] [address] | + + + | Home Phone [...] + +------+ + | Care Customer Service Assistant Name | Role | Phone [...] | Aneurysmal | [place], | [address] [place] | | | | | dilatation | [place] | [place], | | | | | (HCC) | [address] | [place] | | | | | Procedures | [place] | [address] | | | | | ECHO | [place], | Phone: | | | | | Complete | [place] | [phone] | | | | | | [address] | Fax: | | | | | | Phone: | [phone] | | | | | | [phone] | | | | | | | Fax: | | | | | | | [phone] | | +--------+--------+ + + + + Encounter Details +--------+ + + + + | Date | Type | Department | Care Team | Description | +--------+ + + + + | 11/16/ | Orders Only | [facility] [place] | [place], | Aneurysmal | | 2017 | | CARDIOLOGY [address] | [place] [address] | dilatation (HCC) | | | | [place], | [place], | (Primary Dx) | | | | [place] [address] | [place] [address] | | | | | [phone] | [phone] | | | | | | | [...] | | 2019 | | | [place] [address] | | | | | | [place], | | | | | | [place] [address] | | | | | | [phone] | | | | | | | | +--------+ + + + + | 05/01/ | Procedure | Cardiology | | | | 2019 | visit | | | | +--------+ + + + + | 05/01/ | Office | Cardiology | Sil[place], | | | 2019 | Visit | | [address] [address] | | | | | | [place], | | | | | | [place] [address] | | | | | | [phone] | | | | | | | | +--------+ + + + + | 05/21/ | Implant | Cardiology | Daljit Singletary, | Remote Device | | 2019 | Monitor | | [address] [place] | Interrogation | | | | | [place], | (Primary Dx); | | | | | [place] [address] | Pacemaker; | | | | | [phone] | Sinoatrial node | | | | [...] Patient Name VICTOR HUGO | | | [place] Room Number KIRK Patient | | | [id number] Date of Study 11/16/2017 Number | | | Visit Number [id number] | | | Referring Physician GURJIT TROY Number | | | NORMA SOLIS Date | | | of 1960 Ring Making Machine Operator ROMAINE | | | MARISSA TIPTON Age 57 year(s) Interpreting | | | GURJIT TROY | | | Correctional Guard DALJIT SINGLETARY, | | | MD | | | Gender Male Nurse | | | Stress Learning And Development Administrator Procedure Type of | | | Study [...] | | | EF | | | Uufrjvtzc02% Left Ventricle Diastolic Dimension: 5.12 cm | [...] Volume: 46.33 ml | | | EF Wnzdinuji63% | | | | | | Left [...] Rad Results In - 11/16/2017 1:48 PM [facility] Transthoracic Echocardiography Report | | (TTE) Demographics Patient Name VICTOR HUGO BARRY Room Number KIRK | | Patient [id number] Date of Study 11/16/2017 Number Visit Number | | [id number] Referring Physician GURJIT TROY | | Number NORMA SOLIS Date of | | 1960 Ring Making Machine Operator ROMAINE TIPTON RDCS Age 57 year(s) | | Interpreting GURJIT TROY Correctional Guard | | DALJIT SINGLETARY MD | | Gender Male Nurse [...] collapse.Signature | | ------ Electronically signed by DALJIT SINGLETARY MD(Interpreting physician) on | | 11/16/2017 [...] LA Volume: 46.33 ml | | EF Qxlpupmvi27% Left Ventricle Diastolic Dimension: 5.12 cm Systolic [...] | | | | Electronically signed by DALJIT SINGLETARY MD(Interpreting physician) on | | 11/16/2017 [...] LA Volume: 46.33 ml | | EF Hpldfxgtv42% | | | | Left Ventricle | [...]
--- OUTSIDE RECORDS SUMMARY | ~2020-04-15 | XMS | Encounter Summary ---
Demographics + + + | Address | [address] | | | [place] [address] | + + + | Home Phone [...] Team Providers + +------+ + | Care Roofing Foreman Name | Role | Phone | [...] | | 2017 | Encounter | [facility] XRAY | Transaction, | | | | | [address] | Provider Unknown | | | | | [address] [place] | [phone] | | | | | [address] | | | | | | [phone] | Kirk French | | | | | | MD Bre[address] | | | | | | [address] [place], | | | | | | [place] [address] | | | | | | [phone] | | | | | | | [...] + + + +---------+ + + | [place]-3 Fatty | CAPS, one capsule by | [...] | | | | | | [place] [address] | | | | | | [phone] | | | | | | | [...] | | | | | | [place] [address] | | | | | | [phone] | | | | | | | | +--------+ + + + + | 05/21/ | Implant | Cardiology | Daljit Singletary, | Remote Device | | 2019 | Monitor | | [address] | Interrogation | | | | | [place], | (Primary Dx); | | | | | [place] [address] | Pacemaker; | | | | | [phone] | Sinoatrial node | | | | | | dysfunction (HCC) | | | | | | with symptomatic | | | | | | bradycardia | +--------+ + + + + documented as of this encounter Visit Diagnoses Not on filedocumented in this encounter"
--- OUTSIDE RECORDS SUMMARY | ~2020-04-15 | XMS | Encounter Summary ---
Demographics + + + | Address | [address] | | | [place] [address] | + + + | Home Phone [...] Providers + +------+ + | Care Client Account Assistant Name | Role | Phone | [...] | | | | | [address] | [place] [address] | | | | | | [place], [place] | Phone: | | | | | | [address] | [phone] | | | | | | Phone: | Fax: | | | | | | [phone] | [phone] | | | | | | Fax: | | | | | | | [phone] | | + + + + + + + Reason for Visit + + + | Reason | Comments | + + + | Annual Exam | | + + + Encounter Details +--------+---------+ + + + | Date | Type | Department | Care Team | Description | +--------+---------+ + + + | 01/11/ | Office | [facility] | Prabhakarmaria doloresKirk | Irritable bowel | | 2019 | Visit | [facility] | MD [address] | syndrome, | | | | [facility]ARE [address] | unspecified type | | | | [address] | [place] [address] | (Primary Dx); | | | | [place], [place] | [phone] | Chronic pain | | | | [address] | | syndrome; Smoker; | | | | [phone] | | Fatigue, unspecified | | | | | | type; | | | | | | Hyperlipidemia, | | | | | | mixed; Preventative | | | | | | health care; | | | | | | Coronary artery | | | | | | disease involving | | | | | | [place] coronary | | | | | | artery of [place] | | | | | | heart [...] PLT 169 06/02/2019 No results found for: WMEGRXHJ90 No results found for: FOLATE No results [...] Plan and Recommendations: 1. [facility] in [place] for stool studies as outlined above 2. If negative and symptoms persist, recommend capsule endoscopy (this could be completed b y local gun stock maker or he could return to [place] for this test) 3. Nortryptiline 25mg q HS with instruction to titrate to 50mg q HS after 2 weeks if tolera kevin Follow-Up: with local gun stock maker Counseling Time: I spent a total of 35 minutes with this patient, of which greater than 50% of the time was spent in counseling. Specific issues that were discussed included a review of the disease, diagnostic tools that help in our management plans for the patient's chronic diarrhea, abdominal cramping and weight loss and goals for treatment. Bridgette Rios MD Case Maker Gastroenterology Many co and concerns: Co bleeding Co weak Co tired Co diarrhea Co cramps Co weight changes Co 14 stool in 2 hours this AM Took 8 imodium and 2 lomotil Not taking nortriptyline as prescribed by his GI Also wants a script for hemorrhoids Pending pill endoscopy and colonoscopy May be interested in [place] if no results States was down 210# now 267 Co bedridden and can't leave the house Co incontinence States many ER visits, once a week in [place], tx with IVF and dilaudid Conc re ppm Conc re r shoulder tkr and need for mri Issues with Klonopin Was arrested for DUI, self dc 08/14, had difficult withdrawal ofr 2 weeks Walks daily now for stress and exercise 1-5 miles a day Plan: ASSESSMENT AND PLAN: 1. Approximately 40 minutes of time on this gentleman's case [id number], a lot of it was reviewing outside [...] are highly atypica l. Followed by Dr. Rois at [facility]. I reviewed her notes in the patient's [...] W | | | | | | [place], | | | | | | [place] [address] | | | | | | [phone] | | | | | | | | +--------+ + + + + | 05/01/ | Procedure | Cardiology | | | | 2019 | visit | | | | +--------+ + + + + | 05/01/ | Office | Cardiology | Silvia, | | | 2019 | Visit | | [address] | | | | | | [place], | | | | | | [place] [address] | | | | | | [phone] | | | | | | | | +--------+ + + + + | 05/21/ | Implant | Cardiology | Daljit Singletary, | Remote Device | | 2019 | Monitor | | [address] [place] | Interrogation | | | | | [place], | (Primary Dx); | | | | | [place] [address] | Pacemaker; | | | | | [phone] | Sinoatrial node | | | | [...] pain | Ordered: 01/11/2020 | | to [facility] | Referral | e | [...] health care Routine general medical examination at [facility] | | facility | + + | Coronary artery disease involving [place] coronary artery of [place] heart without | | angina pectoris | [...]
--- OUTSIDE RECORDS SUMMARY | ~2020-04-15 | XMS | Encounter Summary ---
Demographics + + + | Address | [address] | | | [place] [address] | + + + | Home Phone [...] Team Providers + +------+ + | Care Nature Photographer Name | Role | Phone | + +------+ + PCP | Unavailable | + +------+ + Encounter Details +--------+ + + + + | Date | Type | Department | Care Team | Description | +--------+ + + + + | 05/13/ | [facility] | [facility] | Dom Graham, | | | 2010 | Encounter | MED [facility] EMER[facility]ENCY | [address] | | | | | CENTER [address] | [place] | | | | | [place] | [address] | | | | | [address] | | | | | | [phone] | | | +--------+ + + + [...] | | | | | | [place] [address] | | | | | | [phone] | | | | | | | [...] | | | | | | [place] [address] | | | | | | [phone] | | | | | | | | +--------+ + + + + | 05/21/ | Implant | Cardiology | Daljit Singletary, | Remote Device | 2019 | Monitor | | MD [address] | Interrogation | | | | | [place], | (Primary Dx); | | | | | [place] [address] | Pacemaker; | | | | | [phone] | Sinoatrial node | | | | [...] | | | | | the Javid Marengo | | | | | | Access Analyzer. | | | | + + + + + + + + | Specimen | + + | | + + + + + + + | Performing | Address | City/State/Zipcode | Phone Number | | Organization | | | | + + + + + | [facility] | [address] | [place] | [phone] | | [facility] | | [address] | | | - LABORATORY | | | | + + + + + | [facility] | [address] | [place] | | | [facility] | | [address], [facility] | | | - LABORATORY | | [...] [address] | [place] | [phone] | | [facility] | | [address] | | | - LABORATORY | | | | + + + + + | [facility] | [address] | [place] | | | [facility] | | [address] | | | - LABORATORY [...] + | [facility] | [address] | [place] | [phone] | | [facility] | | [address] | | | - LABORATORY | | | | + + + + + | [facility] | [address] | [place] | | | [facility] | | [address] | | | [...] + | [facility] | [address] | [place], [place] | [phone] | | [facility] | | [address] | | | - LABORATORY | | | | + + + + + | [facility] | [address] | [place], [place] | | | [facility] | | [address] | | | - LABORATORY | | | | + + + + + XR Chest AP Portable (05/13/2011 3:01 PM PDT) + + | Specimen | + + | | + + + + + | Narrative | Performed At | + + + | [facility] | [facility] | | [address] [facility] | [facility] | | PORTABLE CHEST CLINICAL | [...] Transcribed Date/Time: | | | 05/13/2011 17:06 Hand Striper: <Electronically Signed | | | by Jama Solis MD> 05/13/112038 | | + + + + + | Procedure Note | + + | Kevin, Rad Conversion - 12/29/2013 3:12 PM [facility] | | Diagnostic Imaging Department [address] [place] [address] | | PORTABLE CHEST CLINICAL HISTORY: TACHYCARDIA. [...] 16:57 | |Transcribed Date/Time: 05/13/2011 17:06 | |Hand Striper: | |<Electronically Signed by Jama Solis MD> [...]
--- OUTSIDE RECORDS SUMMARY | ~2020-04-15 | XMS | Encounter Summary ---
Demographics + + + | Address | [address] | | | [place] [address] | + + + | Home Phone [...] Providers + +------+ + | Care Telecommunications Field Engineer Name | Role | Phone | [...] [place] | | | | | [place] | | [address] Phone: | | | | | CYSTO/URETER | | [phone] | | | | | O | | Fax: | | | | | W/LITHOTRIPS | | [phone] | | | | | Y &INDWELL [...] | | | | | [address] | [place] | | | | | [place] | [address] | | | | | [address] | | | | | | [phone] | | | +--------+ + + + [...] +----+---+ + + | | 0 | Carnegie | | | | 8 | 43-degrees | | | | 2 | | | | | 7 | | | +----+---+ + + | | 0 | First | | | | 8 | Inc/Proc St | | | | 2 | | | | | 8 | | | +----+---+ + + | | 0 | [employer] off | | | | 9 | [...] 04/13/19 1219 by | | eral | gyis-nki-nsglfn catheter system; | Dominga Steen RN | [...] | | | | | | [place] [address] | | | | | | [phone] | | | | | | | | +--------+ + + + + | 05/01/ | Procedure | Cardiology | | | | 2019 | visit | | | | +--------+ + + + + | 05/01/ | Office | Cardiology | Silvia, | | | 2019 | Visit | | PARISA [place] [address] | | | | | | [place], | | | | | | [place] [address] | | | | | | [phone] | | | | | | | | +--------+ + + + + | 05/21/ | Implant | Cardiology | Daljit Singletary, | Remote Device | | 2019 | Monitor | | MD [address] | Interrogation | | | | | [place], | (Primary Dx); | | | | | [place] [address] | Pacemaker; | | | | | [phone] | Sinoatrial node | | | | | | dysfunction ([facility]) | | | | | [...]
--- OUTSIDE RECORDS SUMMARY | ~2020-04-15 | XMS | Encounter Summary ---
Demographics + + + | Address | [address] | | | [place] [address] | + + + | Home Phone [...] Providers + +------+ + | Care Chief Payroll Clerk Name | Role | Phone | [...] | | | | | [place] [address] | | | | | | [phone] | | | +--------+ + + + [...] | | | | | | [place] [address] | | | | | | [phone] | | | | | | | | +--------+ + + + + | 05/01/ | Procedure | Cardiology | | | | 2019 | visit | | | | +--------+ + + + + | 05/01/ | Office | Cardiology | Silvia, | | | 2019 | Visit | | PARISA [place] [address] | | | | | | [place], | | | | | | [place] [address] | | | | | | [phone] | | | | | | | | +--------+ + + + + | 05/21/ | Implant | Cardiology | Daljit Singletary, | Remote Device | | 2019 | Monitor | | MD [address] [place] | Interrogation | | | | | [place], | (Primary Dx); | | | | | [place] [address] | Pacemaker; | | | | | [phone] | Sinoatrial node | | | | [...] Performed At | + + + | [facility] Diagnostic Imaging Department | [place] | | [address] [facility] | [facility] [facility] | | CT MYELOGRAM LUMBAR SPINE, | [...] Transcribed Date/Time: | | | 04/23/2012 11:06 Public Works Technician: <Electronically Signed | | | by Jama Solis MD> 04/24/12 0730 | | + + + + + | Procedure Note | + + | Kevin, Rad Conversion - 12/29/2013 5:27 PM [facility] | | Diagnostic Imaging Department [address] [place] [address] | | CT MYELOGRAM LUMBAR SPINE, 04/22/2012 [...] 10:54 | |Transcribed Date/Time: 04/23/2012 11:06 | |Public Works Technician: | |<Electronically Signed by Jama Solis MD> 04/24/12 0730 | + + + +---------+ + + | Performing | Address | City/State/Zipcode | Phone Number | | Organization | | | | + +---------+ + + | [facility] | | | | | [facility] DIAG IMG | | | | + +---------+ + + CT Thoracic Spine w Contrast (04/22/2012 1:12 PM PDT) + + | Specimen | + + | | + + + + + | Narrative | Performed At | + + + | [facility] Diagnostic Imaging Department | [facility] | | [address] [facility] | [facility] | | THORACIC CT MYELOGRAM | [...] Transcribed Date/Time: 04/22/2012 17:32 | | | Public Works Technician: <Electronically Signed by Jama Mason | | | MD Will> 04/23/12 1039 | | + + + + + | Procedure Note | + + | Kevin, Rad Conversion - 12/29/2013 5:27 PM [facility] | | Diagnostic Imaging Department [address] [facility] | | THORACIC CT MYELOGRAM CLINICAL HISTORY: [...] 16:56 | |Transcribed Date/Time: 04/22/2012 17:32 | |Public Works Technician: | |<Electronically Signed by Jama Solis MD> 04/23/12 1039 | + + + +---------+ + + | Performing | Address | City/State/Zipcode | Phone Number | | Organization | | | | + +---------+ + + | [place] | | | | | [facility] | | | | + +---------+ + + CT Cervical Spine w Contrast (04/22/2012 1:12 PM PDT) + + | Specimen | + + | | + + + + + | Narrative | Performed At | + + + | [facility] Diagnostic Imaging Department | [facility] | | [address] [facility] | [facility] | | CT MYELOGRAM CERVICAL SPINE [...] Similar study from | | | 09/02/2009, [facility]. FINDINGS: Firm bony ankylosis | [...] Transcribed Date/Time: | | | 04/22/2012 17:25 Public Works Technician: 1 <Electronically Signed | | | by Jama Solis MD> 04/23/12 1039 | | + + + + + | Procedure Note | + + | Kevin, Rad Conversion - 12/29/2013 5:27 PM [facility] | | Diagnostic Imaging Department | | [address] [facility] | | | | | | [...] | | COMPARISON: Similar study from 09/02/2009, [facility]. | | | | FINDINGS: [...] | Transcribed Date/Time: 04/22/2012 17:25 | | Public Works Technician: | | <Electronically Signed by Jama Solis [...] Performed At | + + + | [facility] Diagnostic Imaging Department | [place] | | [address] [place] | [place] | | LUMBAR [...] Transcribed Date/Time: 04/22/2012 16:36 | | | Public Works Technician: DEBRA <Electronically Signed by Jama Mason | | | MD iWll> 04/23/12 1039 | | + + + + + | Procedure Note | + + | Kevin, Rad Conversion - 12/29/2013 5:27 PM [facility] | | Diagnostic Imaging Department [address] [place] [address] | | LUMBAR MYELOGRAM INJECTION FOR CT [...] 15:51 | |Transcribed Date/Time: 04/22/2012 16:36 | |Public Works Technician: | |<Electronically Signed by Jama Solis MD> [...]
--- OUTSIDE RECORDS SUMMARY | ~2020-04-15 | XMS | Encounter Summary ---
Demographics + + + | Address | [address] | | | [place] [address] | + + + | Home Phone [...] Providers + +------+ + | Care Facility Engineer Name | Role | Phone | [...] [address] | | | | | | [place], [place] | (Fax) | | | | | [address] | | | | | | [phone] | | | +--------+ + + + [...] | | | | | | [place] [address] | | | | | | [phone] | | | | | | | | +--------+ + + + + | 05/01/ | Procedure | Cardiology | | | | 2019 | visit | | | | +--------+ + + + + | 05/01/ | Office | Cardiology | [place]via, | | | 2019 | Visit | | PARISA [place] [address] | | | | | | [place], | | | | | | [place] [address] | | | | | | [phone] | | | | | | | | +--------+ + + + + | 05/21/ | Implant | Cardiology | Daljit Singletary, | Remote Device | | 2019 | Monitor | | [address] | Interrogation | | | | | [place], | (Primary Dx); | | | | | [place] [address] | Pacemaker; | | | | | [phone] | Sinoatrial node | | | | | | dysfunction (HCC) | | | | | | with symptomatic | | | | | | bradycardia | +--------+ + + + + documented as of this encounter Visit Diagnoses Not on filedocumented in this encounter"
--- OUTSIDE RECORDS SUMMARY | ~2020-04-15 | XMS | Encounter Summary ---
Demographics + + + | Address | [address] | | | [place] [address] | + + + | Home Phone [...] [facility] | | [...] Team Providers + +------+ + | Care Gearcase Assembler Name | Role | Phone | [...] + + | 06/25/ | Office | [facility] | [place], | SINUS BRADYCARDIA | | 2013 | Visit | CARDIOLOGY [address] | [place] [address] | (Primary Dx); | | | | [place], | [place], | Symptomatic PVCs; | | | | [place] [address] | [place] [address] | Coronary artery | | | | [phone] | [phone] | disease; | | | | | [...] time, he was admitted over observation at [facility] for a chest pain. Aortogram revealed [...] needed for Chest pain. 25 tablet 12 [place]-3 Fatty Acids (SALMON OIL-1000 PO) CAPS, one [...] HGBEX 16.1 01/25/2014 I reviewed records from [facility] for emergency department visit o n [...] attenuation cannot completely be ruled out. [facility] 12/25/13, shows non critical coronary artery [...] yard. He is in class I-II of [place] [employer] funct ional class. There are [...] ventricular arrhythmia performed by Dr. Gambino at [facility] on 01/30/2013. Patient had spontaneous PVCs [...] go back in 3 days to [place] for an attempt of ablation under general [...] dizziness. He is in class I-II of [place] [employer] functional class. There are [...] made to ensure accuracy; however, inadvertent computerized therapist errors may be pre sent. Electronically signed [...] W | | | | | | [place], | | | | | | [place] [address] | | | | | | [phone] | | | | | | | | +--------+ + + + + | 05/01/ | Procedure | Cardiology | | | | 2019 | visit | | | | +--------+ + + + + | 05/01/ | Office | Cardiology | [place]via, | | | 2019 | Visit | | [place] [address] | | | | | | [place], | | | | | | [place] [address] | | | | | | [phone] | | | | | | | | +--------+ + + + + | 05/21/ | Implant | Cardiology | Daljit Singletary, | Remote Device | 2019 | Monitor | | MD [address] [place] | Interrogation | | | | | [place], | (Primary Dx); | | | | | [place] [address] | Pacemaker; | | | | | [phone] | Sinoatrial node | | | | [...] of unspecified type of vessel, | | [place] or graft | + + | Hypertension Unspecified essential hypertension | + + | Syncope Syncope and collapse | + + | Hyperlipidemia Other and unspecified hyperlipidemia | + + documented in this encounter
--- OUTSIDE RECORDS SUMMARY | ~2020-04-15 | XMS | Encounter Summary ---
Demographics + + + | Address | [address] | | | [place] [address] | + + + | Home Phone [...] Providers + +------+ + | Care Television Production Clerk Name | Role | Phone | [...] | | | | CENTER [address] | [place] | (Primary Dx) | | 07/28/ | | [place] | [address] | | | 2017 | | [address] | | | | | | [phone] | | | +--------+ + + + [...] sent through Care Everywhere.Chest Pain, Non cardiac (Macedonian)documented in this encounter Medications at Time [...] + + +---------+ + + | [place] Anthony-3 Fatty | CAPS, one capsule by | [...] W | | | | | | [place], | | | | | | [place] [address] | | | | | | [phone] | | | | | | | | +--------+ + + + + | 05/01/ | Procedure | Cardiology | | | | 2019 | visit | | | | +--------+ + + + + | 05/01/ | Office | Cardiology | [place], | | | 2019 | Visit | | PARISA [address] W | | | | | | [place], | | | | | | [place] [address] | | | | | | [phone] | | | | | | | | +--------+ + + + + | 05/21/ | Implant | Cardiology | Daljit Singletary, | Remote Device | 2019 | Monitor | | [address] | Interrogation | | | | | [place], | (Primary Dx); | | | | | [place] [address] | Pacemaker; | | | | | [phone] | Sinoatrial node | | | | [...] W?MRN: | | | | | | [id number] | | | [id number] | | | his | | | [...] | | | ent/60 | | | [id number] | | | -5586- | | | [...] | | | St. | | | [place] | | | y | | | [...] | | | ext. | | | [address] | | | or go | | [...] | | | M.D. | | | Steel Roller | | | al | | | [...] | | | | | | [employer] | | | | | [...] + | [facility] | [address] | [place] | [phone] | | [facility] | | [address] | | | - LABORATORY | | [...] mL/min/1.73m2 | [facility] | | | M[place]IN | RATE,ESTIMATED | | MEDICAL | | | | mL/min/1.84i5Isza than | | CENTER - | | [...] bulin Ratio | | | [facility] | | | | | | MEDICAL [...] + | [facility] | [address] | [place] | [phone] | | [facility] | | [address] | | | - LABORATORY | | [...] + | [facility] | [address] | [place] | [phone] | | [facility] | | [address] | | | - LABORATORY | | [...] | | | | HIREN WINKLER, ANGELA ([address]) | | | | | | on [...]
--- OUTSIDE RECORDS SUMMARY | ~2020-04-15 | XMS | Encounter Summary ---
Demographics + + + | Address | [address] | | | [place] [address] | + + + | Home Phone [...] + +------+ + | Care Electronic Warfare Technical Name | Role | Phone | + [...] | | CARDIOLOGY [address] | Janeen, DIGITAL COMPOSER [address] | reading) | | | | [place], | [place], | | | | | [place] [address] | [place] [address] | | | | | [phone] | [phone] | | | | | | | [...] W | | | | | | [place], | | | | | | [place] [address] | | | | | | [phone] | | | | | | | | +--------+ + + + + | 05/01/ | Procedure | Cardiology | | | | 2019 | visit | | | | +--------+ + + + + | 05/01/ | Office | Cardiology | [place], | | | 2019 | Visit | | PARISA [address] W | | | | | | [place], | | | | | | [place] [address] | | | | | | [phone] | | | | | | | | +--------+ + + + + | 05/21/ | Implant | Cardiology | Daljit Singletary, | Remote Device | | 2019 | Monitor | | [facility] | Interrogation | | | | | [place], | (Primary Dx); | | | | | [place] [address] | Pacemaker; | | | | | [phone] | Sinoatrial node | | | | | | dysfunction (HCC) | | | | | | with symptomatic | | | | | | bradycardia | +--------+ + + + + documented as of this encounter Visit Diagnoses Not on filedocumented in this encounter"
--- OUTSIDE RECORDS SUMMARY | ~2020-04-15 | XMS | Encounter Summary ---
Demographics + + + | Address | [address] | | | [place] [address] | + + + | Home Phone [...] Providers + +------+ + | Care Char Conveyor Tender Name | Role | Phone | [...] + + | 12/21/ | Office | [facility] | [place], | Chest pain (Primary | | 2013 | Visit | CARDIOLOGY [address] | [place] [address] | Dx); Symptomatic | | | | [place], | [place], | PVCs; | | | | [place] [address] | [place] [address] | Hyperlipidemia; | | | | [phone] | [phone] | Hypertension; | | | | | [...] this time to see a specialist in [place] and he was to follow up with [...] MOUTH EVERY DAY 30 table t 5 [place]-3 Fatty Acids (SALMON OIL-1000 PO) CAPS, one [...] go back in 3 days to [place] for an attempt of ablation under general [...] weeks. He is in class II of [place] Heart Association funct ional class. There are [...] tolic function, LVEF 65 to 70%. B. Crossborders DDD permanent pacemaker implantation on 06/14/09 by [...] made to ensure accuracy; however, inadvertent computerized educational assistant errors may be pre sent. documented in this encounter Plan of Treatment +--------+ + + + + | Date | Type | Specialty | Care Team | Description | +--------+ + + + + | 05/01/ | Appointment | Radiology | [place], | | | 2019 | | | JaneenPARISA marks W | | | | | | [place], | | | | | | [place] [address] | | | | | | [phone] | | | | | | | | +--------+ + + + + | 05/01/ | Procedure | Cardiology | | | | 2019 | visit | | | | +--------+ + + + + | 05/01/ | Office | Cardiology | [place], | | | 2019 | Visit | | [address] W | | | | | | [place], | | | | | | [place] [address] | | | | | | [phone] | | | | | | | | +--------+ + + + + | 05/21/ | Implant | Cardiology | Daljit Singletary, | Remote Device | 2019 | Monitor | | [address] [place] | Interrogation | | | | | [place], | (Primary Dx); | | | | | [place] [address] | Pacemaker; | | | | | [phone] | Sinoatrial node | | | | [...] of unspecified type of vessel, | | cahto or graft | + + documented in this encounter
--- OUTSIDE RECORDS SUMMARY | ~2020-04-15 | XMS | Encounter Summary ---
Demographics + + + | Address | [address] | | | [place] [address] | + + + | Home Phone [...] Providers + +------+ + | Care Manager Surgical Name | Role | Phone | + [...] | | | pain | [address] | [address] | | | | | Procedures | [place] | [place], | | | | | [place] Nuclear | [place] | [place] | | | | | Stress Test | [address] | [address] | | | | | (Vasodilator | Phone: | Phone: | | | | | ) CHG | [phone] | [phone] | | | | | MYOCARDIAL | Fax: | Fax: | | | | | SPECT | [phone] | [phone] | | | | | MULTIPLE | | | | | | | STUDIES | | | +--------+--------+ + + + + Encounter Details +--------+ + + + + | Date | Type | Department | Care Team | Description | +--------+ + + + + | 12/06/ | Hospital | [facility] | Geri Angel, | Other chest pain | | 2013 | Encounter | MED CTR XRAY [address] | CLAY PROCESSING LABOURER [address] | | | | | [place] | [place] | | | | | [place] [address] | [address] | | | | | [phone] | | | +--------+ + + + [...] + + + +---------+ + + | [place]-3 Fatty | CAPS, one capsule by | [...] | | | | | | [place] [address] | | | | | | [phone] | | | | | | | | +--------+ + + + + | 05/01/ | Procedure | Cardiology | | | | 2019 | visit | | | | +--------+ + + + + | 05/01/ | Office | Cardiology | [place] | | | 2019 | Visit | | PAR[place] [address] | | | | | | [place], | | | | | | [place] [address] | | | | | | [phone] | | | | | | | | +--------+ + + + + | 05/21/ | Implant | Cardiology | Daljit Singletary, | Remote Device | 2019 | Monitor | | [address] | Interrogation | | | | | [place], | (Primary Dx); | | | | | [place] [address] | Pacemaker; | | | | | [phone] | Sinoatrial node | | | | [...] Performed At | + + + | [facility] | STREETER | | Department [address] [place] | [facility] | | [ rep ct [address]] [ rep [facility] | | st zip] Signed | - IMAGING | | | | | Patient Name: MOE GAY | | | Physician: JACKLYN : 1960 Age: 53 Sex: M Unit | | | #: [id number] Exam Date: 12/06/13 Location: | | | [facility] Report #: [id number] Page: | | | %(RAD)RES..mtdd.print.filter("pg") of %(RAD) | | | RES..mtdd.print.filter("tpg") | | | | | | Accession Number: [id number] | | | PERSANTINE SESTAMIBI STRESS TEST, [...] Transcribed Date/Time: 12/07/2013 08:18 | | | Bridge Builder: <<Signature on File>> | | | | | | Daljit Singletary MD [facility] FASE12/07/13 1321 <Electronically signed | | | by Daljit Singletary MD, [facility], FACDamien, ADELINE, YEN> Daljit | | | MD [employer] [facility] ADELINE 12/07/13 0701 Bridge Builder: Cheyennex | | | Frguhpjegrcfo19/16/14 0818 PARISA Garcia | | + + + + + + + + | Performing | Address | City/State/Zipcode | Phone Number | | Organization | | | | + + + + + | [facility] | [address] | [place] | [phone] | | [facility] | | [address] | | | - IMAGING | | | | + + + + + documented in this encounter Visit Diagnoses + + | Diagnosis | + + | Other chest pain | + + documented in this encounter
--- OUTSIDE RECORDS SUMMARY | ~2020-04-15 | XMS | Encounter Summary ---
Demographics + + + | Address | [address] | | | [place] [address] | + + + | Home Phone [...] Providers + +------+ + | Care Chief Procurement Officer Name | Role | Phone | [...] [place] | | | | | [address] [place], [place] | [place] [address] | | | | | [address] | [phone] | | | | | [phone] | | | +--------+ + + + [...] W | | | | | | [place], | | | | | | [place] [address] | | | | | | [phone] | | | | | | | | +--------+ + + + + | 05/01/ | Procedure | Cardiology | | | | 2019 | visit | | | | +--------+ + + + + | 05/01/ | Office | Cardiology | [place], | | | 2019 | Visit | | PARISA [address] | | | | | | [place], | | | | | | [place] [address] | | | | | | [phone] | | | | | | | | +--------+ + + + + | 05/21/ | Implant | Cardiology | Daljit Singletary, | Remote Device | | 2019 | Monitor | | [address] | Interrogation | | | | | [place], | (Primary Dx); | | | | | [place] [address] | Pacemaker; | | | | | [phone] | Sinoatrial node | | | | [...]
--- OUTSIDE RECORDS SUMMARY | ~2020-04-15 | XMS | Encounter Summary ---
Demographics + + + | Address | [address] | | | [place] [address] | + + + | Home Phone [...] Providers + +------+ + | Care Food Production Associate Name | Role | Phone | + +------+ + | Darion Holden DO | PCP | | + +------+ + Encounter Details +--------+ + + + + | Date | Type | Department | Care Team | Description | +--------+ + + + + | 08/05/ | Hospital | [facility] | Emmanuel Daniel MD | | | 2009 | Encounter | MED CTR XRAY [address] | [address] | | | | | [place] | [address] [place], [place] | | | | | [place] [address] | [address] | | | | | [phone] | | | +--------+ + + + [...] W | | | | | | [place], | | | | | | [place] [address] | | | | | | [phone] | | | | | | | | +--------+ + + + + | 05/01/ | Procedure | Cardiology | | | | 2019 | visit | | | | +--------+ + + + + | 05/01/ | Office | Cardiology | [place], | | | 2019 | Visit | | [address] W | | | | | | [place], | | | | | | [place] [address] | | | | | | [phone] | | | | | | | | +--------+ + + + + | 05/21/ | Implant | Cardiology | Daljit Singletary, | Remote Device | | 2019 | Monitor | | [address] [place] | Interrogation | | | | | [place], | (Primary Dx); | | | | | [place] [address] | Pacemaker; | | | | | [phone] | Sinoatrial node | | | | | | dysfunction (HCC) | | | | | | with symptomatic | | | | | | bradycardia | +--------+ + + + + documented as of this encounter Visit Diagnoses Not on filedocumented in this encounter"
--- OUTSIDE RECORDS SUMMARY | ~2020-04-15 | XMS | Encounter Summary ---
Demographics + + + | Address | [address] | | | [place] [address] | + + + | Home Phone [...] Team Providers + +------+ + | Care First Assist Name | Role | Phone | + [...] + + | 10/23/ | Office | [facility] | [place], | CAD (coronary artery | | 2013 | Visit | CARDIOLOGY [address] | [address] [address] | disease) (Primary | | | | [place] [address], | [place], | Dx); Other chest | | | | [place] [address] | [place] [address] | pain; Chest pain; | | | | [phone] | [phone] | Coronary artery | | | | [...] Sanchez Date: October 23, 2014 : 1960 Lard Tub Washer: Kailey Pruitt RN Device Psychology Instructor: Tip Network Sense (mV) Impedance (?) Capture (V) Capture (ms) A Lead 2.80-4.00 407 1.500 0.09 RV Lead 22.40-31.36 519 2.000 0.09 LV Lead Battery Impedance (?): 658 Battery Voltage (V): 2.79 OK Interval (ms): 155 AR Interval (ms): 240 VA Conduction: Mode Switch Events: 1 % of time: <0.1 -JEWELRY SORTER: <0.1% AP-JEWELRY SORTER: <0.1% -VS: 13.8% AP-VS: 86.1% JEWELRY SORTER: Magnetic Rate: 85 LINDA: 65 LEAH: Current [...] Kailey Pruitt RN 10/23/2014 15:22 [place], JIG AND FIXTURE BUILDER - 10/23/2014 2:22 PM PST PATIENT NAME: [...] needed for Chest pain. 25 tablet 12 [place]-3 Fatty Acids (SALMON OIL-1000 PO) CAPS, one capsule by mouth daily twice daily ONE TOUCH DELICA LANCETS [facility] Check glucose as needed for hypoglycemia 100 [...] attenuation cannot completely be ruled out. [facility] 12/25/13, shows non critical coronary [...] He is i n class I-II of [place] Heart Association functional class. There are no [...] to go back in 3 days to [place] for an attempt of ablation under general [...] dizziness. He is in class I-II of [place] Heart Association functional class. There are n [...] this chart may have been created with [employer] voice recognition software. Occasi onal wrong-word or [...] W | | | | | | [place], | | | | | | [place] [address] | | | | | | [phone] | | | | | | | | +--------+ + + + + | 05/01/ | Procedure | Cardiology | | | | 2019 | visit | | | | +--------+ + + + + | 05/01/ | Office | Cardiology | [place], | | | 2019 | Visit | | PARISA [place] [address] | | | | | | [place], | | | | | | [place] [address] | | | | | | [phone] | | | | | | | | +--------+ + + + + | 05/21/ | Implant | Cardiology | Daljit Singletary, | Remote Device | | 2019 | Monitor | | [address] [place] | Interrogation | | | | | [place], | (Primary Dx); | | | | | [place] [address] | Pacemaker; | | | | | [phone] | Sinoatrial node | | | | [...] 23, 2014 : | | | 1960 Lard Tub Washer: Kailey Pruitt RN Device Psychology Instructor: | | | [employer] Med[employer] Sense (mV) Impedance (?) Capture (V) Capture (ms) A | | | Lead 2.80-4.00 407 1.500 0.09 RV Lead 22.40-31.36 519 2.000 0.09 | | | LV Lead Battery Impedance (?): 658 Battery Voltage (V): 2.79 | | | OK Interval (ms): 155 AR Interval (ms): 240 VA Conduction: Mode | | | Switch Events: 1 % of time: <0.1 -JEWELRY SORTER: <0.1% AP-JEWELRY SORTER: <0.1% -VS: | | | 13.8% AP-VS: 86.1% JEWELRY SORTER: Magnetic Rate: 85 LINDA: 65 LEAH: Current [...] | | Date: October 23, 2014DOB: 1960 Lard Tub Washer: Kailey Pruitt RNDevice Psychology Instructor: | | Medtronic Sense (mV) Impedance (?) Capture (V) Capture (ms) A Lead 2.80-4.00 407 1.500 | | 0.09 RV Lead 22.40-31.36 519 2.000 0.09 LV Lead Battery Impedance (?): 658 Battery | | Voltage (V): 2.79 OK Interval (ms): 155 AR Interval (ms): 240 VA Conduction: Mode | | Switch Events: 1 % of time: <0.1 -JEWELRY SORTER: <0.1% AP-JEWELRY SORTER: <0.1% -VS: 13.8% AP-VS: 86.1% JEWELRY SORTER: | | Magnetic Rate: 85 LINDA: 65 [...] of unspecified type | | of vessel, [place] or graft | + + | Other chest pain | + + | Chest pain Chest pain, unspecified | + + | Coronary artery disease Coronary atherosclerosis of unspecified type of vessel, | | [place] or graft | + + | Pacemaker [...]
--- OUTSIDE RECORDS SUMMARY | ~2020-04-15 | XMS | Encounter Summary ---
Demographics + + + | Address | [address] | | | [place] [address] | + + + | Home Phone [...] Team Providers + +------+ + | Care Turnstile Collector Name | Role | Phone | [...] 2019 | | GASTROENTEROLOGY | [address], [place] | | | | | [address] [place] | [address] [place], [place] | | | | | [address] [place], [place] | [address] | | | | | [address] | | | | | | [phone] | | | +--------+ + + + [...] | | | | | | [place] [address] | | | | | | [phone] | | | | | | | | +--------+ + + + + | 05/01/ | Procedure | Cardiology | | | | 2020 | visit | | | | +--------+ + + + + | 05/01/ | Office | Cardiology | [place], | | | 2019 | Visit | | [address]ISA [address] | | | | | | [place], | | | | | | [place] [address] | | | | | | [phone] | | | | | | | | +--------+ + + + + | 05/21/ | Implant | Cardiology | Daljit Singletary, | Remote Device | 2019 | Monitor | | [address] [place] | Interrogation | | | | | [place], | (Primary Dx); | | | | | [place] [address] | Pacemaker; | | | | | [phone] | Sinoatrial node | | | | | | dysfunction (HCC) | | | | | | with symptomatic | | | | | | bradycardia | +--------+ + + + + documented as of this encounter Visit Diagnoses Not on filedocumented in this encounter"
--- OUTSIDE RECORDS SUMMARY | ~2020-04-15 | XMS | Encounter Summary ---
Demographics + + + | Address | [address] | | | [place] [address] | + + + | Home Phone [...] Team Providers + +------+ + | Care Stretching Machine Tender Frame Name | Role | Phone | + +------+ + | Kirk French MD | PCP | | + +------+ + Encounter Details +--------+---------+ + + + | Date | Type | Department | Care Team | Description | +--------+---------+ + + + | 01/25/ | Surgery | [facility] | Daljit Singletary, | CV LHC | | 2019 | | MED CTR CV INTRA OP | MD [address] | | | | | [address] | [address] [place], | | | | | [place] | [place] [address] | | | | | [address] | [phone] | | | | | [phone] | | | +--------+---------+ + + + [...] by your healthcare provider Date Last Reviewed: 09/22/201619995640-1932 [employer]. [address] [place] [address]. All righ ts reserved. This information is [...] + + + +---------+ + + | [place]-3 Fatty | CAPS, one capsule by | [...] W | | | | | | [address] [place], | | | | | | [place] [address] | | | | | | [phone] | | | | | | | | +--------+ + + + + | 05/01/ | Procedure | Cardiology | | | | 2019 | visit | | | | +--------+ + + + + | 05/01/ | Office | Cardiology | [place], | | | 2019 | Visit | | [address] | | | | | | [place], | | | | | | [place] [address] | | | | | | [phone] | | | | | | | | +--------+ + + + + | 05/21/ | Implant | Cardiology | Daljit Singletary, | Remote Device | | 2019 | Monitor | | MD [address] | Interrogation | | | | | [place], | (Primary Dx); | | | | | [place] [address] | Pacemaker; | | | | | [phone] | Sinoatrial node | | | | [...] (1960) MEDICAL RECORD NUMBER: | | | [id number] OF PROCEDURE: 01/25/2019 WORKDAY CONSULTANT: Daljit | | | MD Gemini PROCEDURES [...] Sanchez, (1960) | | OF PROCEDURE: 01/25/2019PRIMARY WIRE WELDER: Daljit Singletary MD PROCEDURES | | PERFORMED:Coronary [...] medical management. | | at 9:33PR[facility] PROVIDER:Kirk French MDFor additional detail [...] or lesion | | type, unspecified whether port lions or transplanted heart | + + documented [...]
--- OUTSIDE RECORDS SUMMARY | ~2020-04-15 | XMS | Encounter Summary ---
Demographics + + + | Address | [address] | | | [place] [address] | + + + | Home Phone [...] Providers + +------+ + | Care Furniture Arranger Name | Role | Phone | + [...] [address] | | | | | [place], | [place], | | | | | [place] [address] | [place] [address] | | | | | [phone] | [phone] | | | | | | | [...] W | | | | | | [place], | | | | | | [place] [address] | | | | | | [phone] | | | | | | | | +--------+ + + + + | 05/01/ | Procedure | Cardiology | | | | 2019 | visit | | | | +--------+ + + + + | 05/01/ | Office | Cardiology | Silvia, | | | 2019 | Visit | | [address] | | | | | | [place], | | | | | | [place] [address] | | | | | | [phone] | | | | | | | | +--------+ + + + + | 05/21/ | Implant | Cardiology | Daljit Singletary, | Remote Device | 2019 | Monitor | | MD [address] [place] | Interrogation | | | | | [place], | (Primary Dx); | | | | | [place] [address] | Pacemaker; | | | | | [phone] | Sinoatrial node | | | | [...]
--- OUTSIDE RECORDS SUMMARY | ~2020-04-15 | XMS | Encounter Summary ---
Demographics + + + | Address | [address] [place] [address] [address] | | | [place] [address] | + + + | Home Phone [...] [place] | | | | | [address] | | + + + + + Care Team Providers + +------+ + | Care Penology Professor Name | Role | Phone | [...] | | | [address] | [place], [place] | | | | | Mailcode: Center | [address] | | | | | for Health and | [phone] | | | | | [facility] [address] | | | | | | [place], [place] | | | | | | [address] | | | | | | [phone] | | | +--------+ + + + [...]
--- OUTSIDE RECORDS SUMMARY | ~2020-04-15 | XMS | Encounter Summary ---
Demographics + + + | Address | [address] | | | [place] [address] | + + + | Home Phone [...] Providers + +------+ + | Care Felt Washing Machine Tender Name | Role | Phone [...] [address] | | | | | [place] | [address] [place] | | | | | [address] | [address] | | | | | [phone] | | | +--------+ + + + [...] W | | | | | | [place], | | | | | | [place] [address] | | | | | | [phone] | | | | | | | | +--------+ + + + + | 05/01/ | Procedure | Cardiology | | | | 2019 | visit | | | | +--------+ + + + + | 05/01/ | Office | Cardiology | Silvia, | | | 2019 | Visit | | PAR[address] | | | | | | [place], | | | | | | [place] [address] | | | | | | [phone] | | | | | | | | +--------+ + + + + | 05/21/ | Implant | Cardiology | Daljit Singletary, | Remote Device | 2019 | Monitor | | [address] [place] | Interrogation | | | | | [place], | (Primary Dx); | | | | | [place] [address] | Pacemaker; | | | | | [phone] | Sinoatrial node | | | | | | dysfunction (HCC) | | | | | | with symptomatic | | | | | | bradycardia | +--------+ + + + + documented as of this encounter Visit Diagnoses Not on filedocumented in this encounter"
--- OUTSIDE RECORDS SUMMARY | ~2020-04-15 | XMS | Encounter Summary ---
Demographics + + + | Address | [address] | | | [place] [address] | + + + | Home Phone [...] Team Providers + +------+ + | Care E Learning Developer Name | Role | Phone | [...] + + | 09/09/ | Office | [facility] | Michael Amanda, | Hyperlipidemia; | | 2011 | Visit | [facility] [place] | DO [address] | Hypertension; | | | | [address] | [place] | Chronic pain | | | | [place] | [address] | syndrome; Neck pain, | | | | [address] | | chronic | | | | [phone] | | | +--------+---------+ + + + [...] damage history No ASHD (either angina; prior IA; prior CABG) No cardiac end organ damage [...] slowly cutting back. Pt was going through [facility] for opiate medications prior to [...] W | | | | | | [place], | | | | | | [place] [address] | | | | | | [phone] | | | | | | | | +--------+ + + + + | 05/01/ | Procedure | Cardiology | | | | 2019 | visit | | | | +--------+ + + + + | 05/01/ | Office | Cardiology | Silvia, | | | 2019 | Visit | | PARISA [address] | | | | | | [place], | | | | | | [place] [address] | | | | | | [phone] | | | | | | | | +--------+ + + + + | 05/21/ | Implant | Cardiology | Daljit Singletary, | Remote Device | 2019 | Monitor | | [address] [place] | Interrogation | | | | | [place], | (Primary Dx); | | | | | [place] [address] | Pacemaker; | | | | | [phone] | Sinoatrial node | | | | [...]
--- OUTSIDE RECORDS SUMMARY | ~2020-04-15 | XMS | Encounter Summary ---
Demographics + + + | Address | [address] | | | [place] [address] | + + + | Home Phone [...] Team Providers + +------+ + | Care Resolution Rep Name | Role | Phone | [...] + | 06/20/ | Telephone | [facility] | Daljit Singletary, | Chest Pain | | 2018 | | CARDIOLOGY [address] | MD [address] [place] | | | | | [place], | [place], | | | | | [place] [address] | [place] [address] | | | | | [phone] | [phone] | | | | | | | [...] | | | | | | [place] [address] | | | | | | [phone] | | | | | | | | +--------+ + + + + | 05/01/ | Procedure | Cardiology | | | | 2019 | visit | | | | +--------+ + + + + | 05/01/ | Office | Cardiology | Silvia, | | | 2019 | Visit | | PARISA [place] [address] | | | | | | [place], | | | | | | [place] [address] | | | | | | [phone] | | | | | | | | +--------+ + + + + | 05/21/ | Implant | Cardiology | Daljit Singletary, | Remote Device | | 2019 | Monitor | | [facility] | Interrogation | | | | | [place], | (Primary Dx); | | | | | [place] [address] | Pacemaker; | | | | | [phone] | Sinoatrial node | | | | | | dysfunction (HCC) | | | | | | with symptomatic | | | | | | bradycardia | +--------+ + + + + documented as of this encounter Visit Diagnoses Not on filedocumented in this encounter"
--- OUTSIDE RECORDS SUMMARY | ~2020-04-15 | XMS | Encounter Summary ---
Demographics + + + | Address | [address] | | | [place] [address] | + + + | Home Phone [...] Providers + +------+ + | Care Power Wood Sawyer Name | Role | Phone | + +------+ + PCP | Unavailable | + +------+ + Encounter Details +--------+ + + + + | Date | Type | Department | Care Team | Description | +--------+ + + + + | 08/02/ | Hospital | [facility] | | | | 2001 | Encounter | MED CTR EMERGENCY | | | | | | [place] [address] | | | | | | [place] | | | | | | [address] | | | | | | [phone] | | | +--------+ + + + [...] | | | | | | [place] [address] | | | | | | [phone] | | | | | | | | +--------+ + + + + | 05/01/ | Procedure | Cardiology | | | | 2019 | visit | | | | +--------+ + + + + | 05/01/ | Office | Cardiology | Silvia, | | | 2019 | Visit | | [address] | | | | | | [place], | | | | | | [place] [address] | | | | | | [phone] | | | | | | | | +--------+ + + + + | 05/21/ | Implant | Cardiology | Daljit Singletary, | Remote Device | 2019 | Monitor | | [address] [place] | Interrogation | | | | | [place], | (Primary Dx); | | | | | [place] [address] | Pacemaker; | | | | | [phone] | Sinoatrial node | | | | | | dysfunction (HCC) | | | | | | with symptomatic | | | | | | bradycardia | +--------+ + + + + documented as of this encounter Visit Diagnoses Not on filedocumented in this encounter"
--- OUTSIDE RECORDS SUMMARY | ~2020-04-15 | XMS | Encounter Summary ---
Demographics + + + | Address | [address] | | | [place] [address] | + + + | Home Phone [...] Team Providers + +------+ + | Care Diamond Polisher Name | Role | Phone | + +------+ + | Michael Amanda DO | PCP | | + +------+ + Encounter Details +--------+ + + + + | Date | Type | Department | Care Team | Description | +--------+ + + + + | 07/30/ | Abstract | [facility] | Michael Amanda, | | | 2013 | | [facility] | DO [address] | | | | | [address] | [place] | | | | | [place] | [address] | | | | | [address] | | | | | | [phone] | | | +--------+ + + + [...] | | | | | | [place] [address] | | | | | | [phone] | | | | | | | | +--------+ + + + + | 05/01/ | Procedure | Cardiology | | | | 2019 | visit | | | | +--------+ + + + + | 05/01/ | Office | Cardiology | Sil[place], | | | 2019 | Visit | | PARISA [place] [address] | | | | | | [place], | | | | | | [place] [address] | | | | | | [phone] | | | | | | | | +--------+ + + + + | 05/21/ | Implant | Cardiology | Daljit Singletary, | Remote Device | | 2019 | Monitor | | [address] | Interrogation | | | | | [place], | (Primary Dx); | | | | | [place] [address] | Pacemaker; | | | | | [phone] | Sinoatrial node | | | | [...] + + | EXTERNAL LAB: FLORENTINO | Routin | 07/26/2014 | | Results for this | | SCREEN | e | | | procedure are in the | | | | | | results section. | + +--------+ + + + | EXTERNAL LAB: AST | Routin | 07/26/2014 | | Results for this | | | e | | | procedure are in the | | | | | | results section. | + +--------+ + + + | EXTERNAL LAB: ALT | Routin | 07/26/2014 | | Results [...] | AST | 32 | U/L | YESSY | | | | | [...] [address] | [place] | [phone] | | [facility] | | [address] | | | - LABORATORY | | | | + + + + + | [address] | [address] | [place] | | | [facility] | | [address] | | | - LABORATORY [...] [facility] | + + External Lab: PITO (07/26/2014) + +-------+ + + + | [...] | | | | | | | [place], | | | | | | External [...]
--- OUTSIDE RECORDS SUMMARY | ~2020-04-15 | XMS | Encounter Summary ---
Demographics + + + | Address | [address] | | | [place] [address] | + + + | Home Phone [...] Team Providers + +------+ + | Care Old Testament Professor Name | Role | Phone | [...] | [address] [place] | [place] [address] | | | | | [address] | [phone] | | | | | [phone] | | | +--------+ + + + [...] | | | | | | [place] [address] | | | | | | [phone] | | | | | | | | +--------+ + + + + | 05/01/ | Procedure | Cardiology | | | | 2019 | visit | | | | +--------+ + + + + | 05/01/ | Office | Cardiology | [place], | | | 2019 | Visit | | PARISA [place] [address] | | | | | | [place], | | | | | | [place] [address] | | | | | | [phone] | | | | | | | | +--------+ + + + + | 05/21/ | Implant | Cardiology | Daljit Singletary, | Remote Device | 2019 | Monitor | | MD [address] [place] | Interrogation | | | | | [place], | (Primary Dx); | | | | | [place] [address] | Pacemaker; | | | | | [phone] | Sinoatrial node | | | | | | dysfunction (HCC) | | | | | | with symptomatic | | | | | | bradycardia | +--------+ + + + + documented as of this encounter Visit Diagnoses Not on filedocumented in this encounter"
--- OUTSIDE RECORDS SUMMARY | ~2020-04-15 | XMS | Encounter Summary ---
Demographics + + + | Address | [address] | | | [place] [address] | + + + | Home Phone [...] Providers + +------+ + | Care Automotive Electrical Fitter Name | Role | Phone | [...] [address] | | | | | [address] | [place] | | | | | [phone] | [address] | | | | | | | [...] | | | | | | [place], | | | | | | [place] [address] | | | | | | [phone] | | | | | | | | +--------+ + + + + | 05/01/ | Procedure | Cardiology | | | | 2019 | visit | | | | +--------+ + + + + | 05/01/ | Office | Cardiology | Silvia, | | | 2019 | Visit | | PARISA Vernon W | | | | | | [place], | | | | | | [place] [address] | | | | | | [phone] | | | | | | | | +--------+ + + + + | 05/21/ | Implant | Cardiology | Daljit Singletary, | Remote Device | 2019 | Monitor | | MD [address] | Interrogation | | | | | [place], | (Primary Dx); | | | | | [place] [address] | Pacemaker; | | | | | [phone] | Sinoatrial node | | | | | | dysfunction (HCC) | | | | | | with symptomatic | | | | | | bradycardia | +--------+ + + + + documented as of this encounter Visit Diagnoses Not on filedocumented in this encounter"
--- OUTSIDE RECORDS SUMMARY | ~2020-04-15 | XMS | Encounter Summary ---
Demographics + + + | Address | [address] | | | [place] [address] | + + + | Home Phone [...] Team Providers + +------+ + | Care Kiln Setter Name | Role | Phone | [...] + + | 12/23/ | Telephone | [facility] | Emmanuel Daniel MD | Other (Needs to know | | 2017 | | GASTROENTEROLOGY | [address], [place] | what he can eat | | | | [address] [place] | [address] [place], [place] | today) | | | | [address] [place], [place] | [address] | | | | | [address] | | | | | | [phone] | | | +--------+ + + + [...] | | | | | | [place] [address] | | | | | | [phone] | | | | | | | | +--------+ + + + + | 05/01/ | Procedure | Cardiology | | | | 2019 | visit | | | | +--------+ + + + + | 05/01/ | Office | Cardiology | Silvia, | | | 2019 | Visit | | PARISA Vernon [address] | | | | | | [place], | | | | | | [place] [address] | | | | | | [phone] | | | | | | | | +--------+ + + + + | 05/21/ | Implant | Cardiology | Daljit Singletary, | Remote Device | | 2019 | Monitor | | [address] [facility] | Interrogation | | | | | [place], | (Primary Dx); | | | | | [place] [address] | Pacemaker; | | | | | [phone] | Sinoatrial node | | | | | | dysfunction (HCC) | | | | | | with symptomatic | | | | | | bradycardia | +--------+ + + + + documented as of this encounter Visit Diagnoses Not on filedocumented in this encounter"
--- OUTSIDE RECORDS SUMMARY | ~2020-04-15 | XMS | Encounter Summary ---
Demographics + + + | Address | [address] | | | [place] [address] | + + + | Home Phone [...] Providers + +------+ + | Care Senior Premium Auditor Name | Role | Phone | + +------+ + | Kirk rFench MD | PCP | | + +------+ + Encounter Details +--------+ + + + + | Date | Type | Department | Care Team | Description | +--------+ + + + + | 12/23/ | Emergency | [facility] | Cristal Alexander, | Chronic neck pain; | | 2015 | | [facility]ICAL [facility]ENTER | DO [address] | Headache(784.0) | | | | EMERGENCY CENTER | [place] [address] | | | | | [address] | [phone] | | | | | [place], [place] | | | | | | [address] | | | | | | [phone] | | | +--------+ + + + [...] + + + +---------+ + + | [place]-3 Fatty | CAPS, one capsule by | [...] | | | | | | | #[id number], exp 07/2016 | | | | | [...] | | | | | | [place] [address] | | | | | | [phone] | | | | | | | [...] | | | | | | [place] [address] | | | | | | [phone] | | | | | | | | +--------+ + + + + | 05/21/ | Implant | Cardiology | Daljit Singletary, | Remote Device | | 2019 | Monitor | | [address] [facility] | Interrogation | | | | | [place], | (Primary Dx); | | | | | [place] [address] | Pacemaker; | | | | | [phone] | Sinoatrial node | | | | [...] Conversion - 07/07/2019 5:05 AM PDT PINA [id number] years MaleCT | | CERVICAL SPINE WO [...]
--- OUTSIDE RECORDS SUMMARY | ~2020-04-15 | XMS | Encounter Summary ---
Demographics + + + | Address | [address] | | | [place] [address] | + + + | Home Phone [...] Team Providers + +------+ + | Care Mothercraft Nurse Name | Role | Phone | [...] | Ascending | [place], | [address] | | | | | aortic | Janeen, TRAVELIFT OPERATOR | [place], | | | | | aneurysm | [address] | [place] | | | | | ([facility]) | [address] | [address] | | | | | Procedures | [place], | Phone: | | | | | ECHO | [place] | [phone] | | | | | Complete | [address] | Fax: | | | | | | Phone: | [phone] | | | | | | [phone] | | | | | | | Fax: | | | | | | | [phone] | | + +--------+ + + + [...] | MD [address] | [address] | | | | | hypertension | [address] | [place], | | | | | Sick sinus | [address] | [place] | | | | | syndrome | [place], [place] | [address] | | | | | (HCC) | [address] | Phone: | | | | | Ventricular | Phone: | [phone] | | | | | premature | [phone] | Fax: | | | | | depolarizati | Fax: | [phone] | | | | | on | [phone] | | | | | | Tachycardia, | | | | | | | unspecified | | | | | | | | | | | | | | Atherosclero | | | | | | | tic heart | | | | | | | disease of | | | | | | | [place] | | | | | | | [...] + + | 01/01/ | Office | [facility] | [place], | Ascending thoracic | | 2020 | Visit | CARDIOLOGY [address] | [place] [address] | aortic aneurysm | | | | [place], | [place], | (HCC) (Primary Dx); | | | | [place] [address] | [place] [address] | Coronary artery | | | | [phone] | [phone] | disease involving | | | | | | [place] coronary | | | | | | artery of [place] | | | | | | heart [...] encounter Patient Instructions Patient Instructions Vidhi Gillespie, Biologics Specialist - 01/01/2020 7:30 AM PST1. Esau nue [...] of critical coronary artery disea se involving [place] coronary artery of [place] heart without angina pectoris, essential hyper tension, [...] for weight loss, he was defer to [facility], per [facility] to have some sort of a patient [...] Preventative health care Coronary artery disease involving [place] coronary artery of [place] heart without angina pectoris Cannabis abuse, daily [...] ONE TABLET UNDER THE TONGUE EVERY 5 PR NUTES NEEDED FOR CHEST PAIN 250 tablet 0 nortriptyline (PAMELOR) 25 mg capsule Take 25 mg by mouth. [place]-3 Fatty Acids (SALMON OIL-1000 PO) CAPS, one capsule by mouth daily twice daily ondansetron (ZOFRAN ODT) 4 mg disintegrating tablet Take 4 mg by mouth every 8 hours as needed for Nausea. ondansetron (ZOFRAN) 4 mg tablet Take 4 mg by mouth. [facility] Check glucose as needed for hypoglycemia 100 [...] was found Confirmed by GURJIT WINKLER, SYDNI ([id number]) on 06/06/2019 3:43:10 PM LAB RESULTS reviewed during visit today primarily from [facility]: LIPID Lab Results Component Value Date CHOL [...] BNP 48 06/02/2019 I reviewed records from [facility] for office visit on 06/06/2019 wh ich is summarized in the HPI. RESULTS- I reviewed reports from [facility]: No results found. Above data and testing is reviewed this visit; testing below is historical data unless othe rwise specified. ASSESSMENT: 1. Non-critical Coronary artery disease involving [place] coronary artery of [place] heart [facility] angina pectoris: A.Normal exercise sestamibi [...] symptoms; no limitations of activities of the [place] He[employer] functional class. Heart failure [...] performed by Dr Juan Diego Gambino at [facility] on 01/30/2013.Patient had spontaneous PVC'sfr [...] to go back in 3 days to [place] for an attempt of ablation under general [...] advised to having [facility] done in [place] [facility] which has a repeat MRI protocol for [...] advised to having his MRI done in [place] at [facility] which has a repeat MRI protocol for such situations. Patient also will need echocardiogram for his next appointmen t to evaluate his ascending aorta Vidhi Clemente, Biologics Specialist am acting as a scribe on behalf of, and in the prese nce of PARISA Lomas. - Vidhi Gillespie, Biologics Specialist 01/01/2020 5:29 PM I, PARISA Lomas, personally performed the services described in this documentati on, as scribed in my presence and it is both accurate and complete. -PARISA Lomas 01/01/2020 Portions of this chart may have been created with my3Dreams voice recognition software. Occasi onal wrong-word or [...] | | | | | | [place] [address] | | | | | | [phone] | | | | | | | | +--------+ + + + + | 05/01/ | Procedure | Cardiology | | | | 2019 | visit | | | | +--------+ + + + + | 05/01/ | Office | Cardiology | [place], | | | 2019 | Visit | | PARISA [place] [address] | | | | | | [place], | | | | | | [place] [address] | | | | | | [phone] | | | | | | | | +--------+ + + + + | 05/21/ | Implant | Cardiology | Sydni Singletary, | Remote Device | | 2019 | Monitor | | [address] | Interrogation | | | | | [place], | (Primary Dx); | | | | | [place] [address] | Pacemaker; | | | | | [phone] | Sinoatrial node | | | | [...] + + | Coronary artery disease involving [place] coronary artery of [place] heart without | | angina pectoris | [...]
--- OUTSIDE RECORDS SUMMARY | ~2020-04-15 | XMS | Encounter Summary ---
Demographics + + + | Address | [address] | | | [place] [address] | + + + | Home Phone [...] Providers + +------+ + | Care Electric System Operator Name | Role | Phone [...] [address] | | | | | [address] | [place] | | | | | [phone] | [address] | | | | | | [phone] | | | | | | | [...] Notes by Kylah Fraser CMA at 04/11/18 0726 Author: Kylah Fraser CMA Service: (none) Author Type: Medical Laboratory Scientist Filed: 04/19/18 1118 Encounter Date: 04/11/2018 Status: Signed Rda: Kylah Fraser CMA (Medical Laboratory Scientist) See telephone encounter 04/19/18. Karen pfeiffer in [...] | | | | | | [place] [address] | | | | | | [phone] | | | | | | | | +--------+ + + + + | 05/01/ | Procedure | Cardiology | | | | 2019 | visit | | | | +--------+ + + + + | 05/01/ | Office | Cardiology | [place], | | | 2019 | Visit | | PARISA Vernon [address] | | | | | | [place], | | | | | | [place] [address] | | | | | | [phone] | | | | | | | | +--------+ + + + + | 05/21/ | Implant | Cardiology | Daljit Singletary, | Remote Device | | 2019 | Monitor | | [address] | Interrogation | | | | | [place], | (Primary Dx); | | | | | [place] [address] | Pacemaker; | | | | | [phone] | Sinoatrial node | | | | [...]
--- OUTSIDE RECORDS SUMMARY | ~2020-04-15 | XMS | Encounter Summary ---
Demographics + + + | Address | [address] | | | [place] [address] | + + + | Home Phone [...] Providers + +------+ + | Care Credit Advisor Name | Role | Phone | + +------+ + | Michael Amanda DO | PCP | | + +------+ + Encounter Details +--------+ + + + + | Date | Type | Department | Care Team | Description | +--------+ + + + + | 06/26/ | Hospital | [facility] | Michael Amanda, | Diplopia | | 2012 | Encounter | MED CTR LABORATORY | DO [address] | | | | | [address] [place] | [place], [place] | | | | | [place], [place] | [address] | | | | | [address] | | | | | | [phone] | | | +--------+ + + + [...] W | | | | | | [address] [place], | | | | | | [place] [address] | | | | | | [phone] | | | | | | | | +--------+ + + + + | 05/01/ | Procedure | Cardiology | | | | 2019 | visit | | | | +--------+ + + + + | 05/01/ | Office | Cardiology | [place], | | | 2019 | Visit | | PARISA [place] [address] | | | | | | [address] [place], | | | | | | [place] [address] | | | | | | [phone] | | | | | | | | +--------+ + + + + | 05/21/ | Implant | Cardiology | Daljit Singletary, | Remote Device | | 2020 | Monitor | | MD [address] [facility] | Interrogation | | | | | [place], | (Primary Dx); | | | | | [place] [address] | Pacemaker; | | | | | [phone] | Sinoatrial node | | | | [...] | mg/L indicate possible | | [facility] | | | | infection, trauma, | [...] [address] | [place] | [phone] | | [facility] | | [address] | | | - LABORATORY | | | | + + + + + | [facility] | [address] | [place], [place] | | | [facility] | | [address], [facility] | | | - LABORATORY | | | | + + + + + TSH (06/26/2013 3:39 PM PDT) + + + + + + | Component | Value | Ref Range | Performed | Pathologist | | | | | At | Signature | + + + + + + | TSH | 1.23Comment: Testing | 0.34 - 5.60 | YESSY | | | | performed on the Javid | uIU/mL | [facility] | | | | [place] [facility] | | MEDICAL | | | [...] + | [facility] | [address] | [place] | [phone] | | [facility] | | [address] | | | - LABORATORY | | | | + + + + + | [facility] | [address] | [place], [place] | | | [facility] | | [address] [place] [address] | | | - LABORATORY | | [...] | | [facility] | | | Sedimentati | | | [...] + | [facility] | [address] | [place] | [phone] | | [facility] | | [address] | | | - LABORATORY | | | | + + + + + | [facility] | [address] | [place], [place] | | | [facility] | | [address], [facility] | | | - LABORATORY [...] | | mg/L indicate possible | | [facility] | | | | infection, | | [...] + + | Performing | Address | City/[facility]/Zipcode | Phone Number | | Organization | | | | + + + + + | [facility] | [address] | [place], [place] | [phone] | | [facility] | | [address] | | | - LABORATORY | | | | + + + + + | [facility] | [address] | [place] | | | [facility] | | [address], [facility] | | | - LABORATORY [...] | | | MICHELLE | | | Sedimentati | | | [...] + | [facility] | [address] | [place] | [phone] | | [facility] | | [address] | | | - LABORATORY | | | | + + + + + | [facility] | [address] | [place], [place] | | | [facility] | | [address] [place] [address] | | | - LABORATORY | | [...] on the Javid | uIU/mL | [facility] | | | | [facility] | [...] + | [facility] | [address] | [place] | [phone] | | [facility] | | [address] | | | - LABORATORY | | | | + + + + + | [facility] | [address] | [place] | | | [facility] | | [id number] [place] [address] | | | - LABORATORY | | | | + + + + + documented in this encounter Visit Diagnoses + + | Diagnosis | + + | Diplopia | + + documented in this encounter"
--- OUTSIDE RECORDS SUMMARY | ~2020-04-15 | XMS | Encounter Summary ---
Demographics + + + | Address | [address] | | | [place] [address] | + + + | Home Phone [...] Team Providers + +------+ + | Care Reverberatory Furnace Operator Name | Role | Phone | + +------+ + | Kirk French MD | PCP | | + +------+ + Encounter Details +--------+ + + + + | Date | Type | Department | Care Team | Description | +--------+ + + + + | 10/25/ | Hospital | [facility] | Kirk French | Chronic pain | | 2017 | Encounter | MED CTR ULTRASOUND | MD Brea [place] | disorder; Stomach | | | | [address] [place] | [address] | ache; Obesity, | | | | [place], [place] | [place] [address] | unspecified | | | | [address] | [phone] | classification, | | | | [phone] | | unspecified obesity | | | [...] + + + +---------+ + + | [place]-3 Fatty | CAPS, one capsule by | [...] | | | | | | [place] [address] | | | | | | [phone] | | | | | | | | +--------+ + + + + | 05/01/ | Procedure | Cardiology | | | | 2019 | visit | | | | +--------+ + + + + | 05/01/ | Office | Cardiology | [place], | | | 2019 | Visit | | [address] | | | | | | [place], | | | | | | [place] [address] | | | | | | [phone] | | | | | | | | +--------+ + + + + | 05/21/ | Implant | Cardiology | Daljit Singletary, | Remote Device | | 2019 | Monitor | | MD [address] [facility] | Interrogation | | | | | [place], | (Primary Dx); | | | | | [place] [address] | Pacemaker; | | | | | [phone] | Sinoatrial node | | | | [...]
--- OUTSIDE RECORDS SUMMARY | ~2020-04-15 | XMS | Encounter Summary ---
Demographics + + + | Address | [address] | | | [place] [address] | + + + | Home Phone [...] Providers + +------+ + | Care Technical Developer Name | Role | Phone | [...] [address] | | | | | | [place], [place] | (Fax) | | | | | [address] | | | | | | [phone] | | | +--------+ + + + [...] | | | | | | [place] [address] | | | | | | [phone] | | | | | | | [...] | | | | | | [place] [address] | | | | | | [phone] | | | | | | | | +--------+ + + + + | 05/21/ | Implant | Cardiology | Daljit Singletary, | Remote Device | | 2019 | Monitor | | [address] [place] | Interrogation | | | | | [place], | (Primary Dx); | | | | | [place] [address] | Pacemaker; | | | | | [phone] | Sinoatrial node | | | | | | dysfunction (HCC) | | | | | | with symptomatic | | | | | | bradycardia | +--------+ + + + + documented as of this encounter Visit Diagnoses Not on filedocumented in this encounter"
--- OUTSIDE RECORDS SUMMARY | ~2020-04-15 | XMS | Encounter Summary ---
Demographics + + + | Address | [address] [place] [address] [address] | | | [place] [address] | + + + | Home Phone | | + + + | Preferred Language | Unknown | + + + | Marital Status | | + + + | Congregational Affiliation | Unknown | + + + [...] [place] | | | | | [address] | | + + + + + Care Team Providers + +------+ + | Care Rubber Grinder Name | Role | Phone | [...] | | [address] | [facility] [place] | ED) | | | | Mailcode: Center | [address] | | | | | for Health and | [phone] | | | | | [facility] | | | | | | [place], [place] | | | | | | [address] | | | | | | [phone] | | | +--------+ + + + [...]
--- OUTSIDE RECORDS SUMMARY | ~2020-04-15 | XMS | Encounter Summary ---
Demographics + + + | Address | [address] | | | [place] [address] | + + + | Home Phone [...] Providers + +------+ + | Care Hand Heel Seat Fitter Name | Role | Phone | [...] | 02/15/ | Office | [facility] [place] | [place], | Symptomatic PVCs | | 2012 | Visit | CARDIOLOGY [address] | [place] [address] | (Primary Dx); | | | | [place], | [place], | Bradycardia; HTN | | | | [place] [address] | [place] [address] | (hypertension) | | | | [phone] | [phone] | | | | | | | [...] at which time patient was going to [place] for custom framing specialist co nsult and PVC ablation. Since [...] tablet Take 1,000 mg by mouth Daily. [place]-3 Fatty Acids (SALMON OIL-1000 PO) CAPS, one [...] Gambino at [facility] on 01/30/2013. Patient had spontaneous PVCs [...] to go back in 3 days to [place] for an attempt of ablation under general [...] He is in a class II of [place] [employer] functional class. There is no [...] been encouraged to keep his appointment with custom framing specialist this coming to attempt ablation therapy. 4. Follow up appointment in 4-6 weeks. I, PARISA Russell, saw this patient under the direct supervision of Daljit Singletary MD Portions of this report were transcribed using voice recognition software. Every effort wa s made to ensure accuracy; however, inadvertent computerized mycologist errors may be pre sent. documented in [...] | | | | | | [place] [address] | | | | | | [phone] | | | | | | | [...] | | | | | | [place] [address] | | | | | | [phone] | | | | | | | | +--------+ + + + + | 05/21/ | Implant | Cardiology | Daljit Singletary, | Remote Device | 2019 | Monitor | | [address] [place] | Interrogation | | | | | [place], | (Primary Dx); | | | | | [place] [address] | Pacemaker; | | | | | [phone] | Sinoatrial node | | | | [...]
--- OUTSIDE RECORDS SUMMARY | ~2020-04-15 | XMS | Encounter Summary ---
Demographics + + + | Address | [address] | | | [place] [address] | + + + | Home Phone [...] Team Providers + +------+ + | Care Electrician Locomotive Name | Role | Phone | + +------+ + | Kirk French MD | PCP | | + +------+ + Encounter Details +--------+ + + + + | Date | Type | Department | Care Team | Description | +--------+ + + + + | 08/10/ | Orders Only | [facility] | [place], | Mixed hyperlipidemia | | 2016 | | MED CTR LABORATORY | PARISA [place] [address] | (Primary Dx) | | | | [address] [place] | [place], | | | | | [place] | [place] [address] | | | | | [address] | [phone] | | | | | [phone] | | | +--------+ + + + [...] W | | | | | | [place], | | | | | | [place] [address] | | | | | | [phone] | | | | | | | | +--------+ + + + + | 05/01/ | Procedure | Cardiology | | | | 2019 | visit | | | | +--------+ + + + + | 05/01/ | Office | Cardiology | [place], | | | 2019 | Visit | | PARISA [place] [address] | | | | | | [place], | | | | | | [place] [address] | | | | | | [phone] | | | | | | | | +--------+ + + + + | 05/21/ | Implant | Cardiology | Daljit Singletary, | Remote Device | | 2020 | Monitor | | [facility] | Interrogation | | | | | [place], | (Primary Dx); | | | | | [place] [id number] | Pacemaker; | | | | | [phone] | Sinoatrial node | | | | [...]
--- OUTSIDE RECORDS SUMMARY | ~2020-04-15 | XMS | Encounter Summary ---
Demographics + + + | Address | [address] | | | [place] [address] | + + + | Home Phone [...] Providers + +------+ + | Care Washer And Capper Machine Operator Name | Role | Phone [...] Provider Unknown | | | | | [place], [place] | [phone] | | | | | [address] | | | | | | [phone] | | | +--------+ + + + [...] + + + +---------+ + + | Tatums-3 Fatty | CAPS, one capsule by | [...] | | | | | | [place] [address] | | | | | | [phone] | | | | | | | | +--------+ + + + + | 05/01/ | Procedure | Cardiology | | | | 2019 | visit | | | | +--------+ + + + + | 05/01/ | Office | Cardiology | Silvia, | | | 2019 | Visit | | [address] | | | | | | [place], | | | | | | [place] [address] | | | | | | [phone] | | | | | | | | +--------+ + + + + | 05/21/ | Implant | Cardiology | Daljit Singletary, | Remote Device | 2019 | Monitor | | [address] [place] | Interrogation | | | | | [place], | (Primary Dx); | | | | | [place] [address] | Pacemaker; | | | | | [phone] | Sinoatrial node | | | | [...]
--- OUTSIDE RECORDS SUMMARY | ~2020-04-15 | XMS | Encounter Summary ---
Demographics + + + | Address | [address] | | | [place] [address] | + + + | Home Phone [...] Team Providers + +------+ + | Care Counterintelligence Agent Name | Role | Phone | + +------+ + PCP | Unavailable | + +------+ + Encounter Details +--------+ + + + + | Date | Type | Department | Care Team | Description | +--------+ + + + + | 10/09/ | [facility] | [facility] | Jonathan, | | | 2008 | Encounter | MED CTR EMERGENCY | Martell Cr MD [address] | | | | | CENTER [address] | [place] | | | | | [place] | [place] [address] | | | | | [address] | [phone] | | | | | [phone] | | | +--------+ + + + [...] | | | | | | [place] [address] | | | | | | [phone] | | | | | | | [...] | | | | | | [place] [address] | | | | | | [phone] | | | | | | | | +--------+ + + + + | 05/21/ | Implant | Cardiology | Daljit Singletary, | Remote Device | 2019 | Monitor | | MD [place] | Interrogation | | | | | [place], | (Primary Dx); | | | | | [place] [address] | Pacemaker; | | | | | [phone] | Sinoatrial node | | | | | | dysfunction (HCC) | | | | | | with symptomatic | | | | | | bradycardia | +--------+ + + + + documented as of this encounter Visit Diagnoses Not on filedocumented in this encounter"
--- OUTSIDE RECORDS SUMMARY | ~2020-04-15 | XMS | Encounter Summary ---
Demographics + + + | Address | [address] | | | [place] [address] | + + + | Home Phone [...] Team Providers + +------+ + | Care Silk Trimmer Name | Role | Phone | + +------+ + | Kirk French MD | PCP | | + +------+ + Encounter Details +--------+ + + + + | Date | Type | Department | Care Team | Description | +--------+ + + + + | 07/21/ | Hospital | [facility] | Daljit Singletary, | | | 2018 | Encounter | MED CTR NUCLEAR | MD [address] [place] | | | | | MEDICINE [address] | [address] [place], | | | | | [place] | [place] [address] | | | | | [place] [address] | [phone] | | | | | [phone] | | | +--------+ + + + [...] + + + +---------+ + + | Cataw[place]-3 Fatty | CAPS, one capsule by | [...] W | | | | | | [place], | | | | | | [place] [address] | | | | | | [phone] | | | | | | | | +--------+ + + + + | 05/01/ | Procedure | Cardiology | | | | 2019 | visit | | | | +--------+ + + + + | 05/01/ | Office | Cardiology | Silvia, | | | 2019 | Visit | | PARISA Vernon [address] | | | | | | [place], | | | | | | [place] [address] | | | | | | [phone] | | | | | | | | +--------+ + + + + | 05/21/ Implant | Cardiology | Daljit Singletary, | Remote Device | | 2019 | Monitor | | [facility] | Interrogation | | | | | [place], | (Primary Dx); | | | | | [place] [address] | Pacemaker; | | | | | [phone] | Sinoatrial node | | | | [...] | | | | | Starting [facility] 07/21/18 at 1224, For | | | | | | | 1 dose, Nuclear Medicine | | | | | | + +--------+ + +------+------+ +---+---+ | | | +---+---+ documented in this encounter"
--- OUTSIDE RECORDS SUMMARY | ~2020-04-15 | XMS | Encounter Summary ---
Demographics + + + | Address | [address] | | | [place] [address] | + + + | Home Phone [...] Providers + +------+ + | Care Construction Equipment Mechanic Helper Name | Role | Phone | [...] | | CARDIOLOGY [address] | Janeen BELL STAFF [address] | | | | | [place], | [place], | | | | | [place] [address] | [place] [address] | | | | | [phone] | [phone] | | | | | | | [...] W | | | | | | [place], | | | | | | [place] [address] | | | | | | [phone] | | | | | | | | +--------+ + + + + | 05/01/ | Procedure | Cardiology | | | | 2019 | visit | | | | +--------+ + + + + | 05/01/ | Office | Cardiology | Silvia, | | | 2019 | Visit | | PARISA Vernon [address] | | | | | | [place], | | | | | | [place] [address] | | | | | | [phone] | | | | | | | | +--------+ + + + + | 05/21/ | Implant | Cardiology | Daljit Singletary, | Remote Device | 2019 | Monitor | | MD [address] | Interrogation | | | | | [place], | (Primary Dx); | | | | | [place] [address] | Pacemaker; | | | | | [phone] | Sinoatrial node | | | | | | dysfunction (HCC) | | | | | | with symptomatic | | | | | | bradycardia | +--------+ + + + + documented as of this encounter Visit Diagnoses Not on filedocumented in this encounter"
--- OUTSIDE RECORDS SUMMARY | ~2020-04-15 | XMS | Encounter Summary ---
Demographics + + + | Address | [address] | | | [place] [address] | + + + | Home Phone [...] Providers + +------+ + | Care Service Engine Repairer Name | Role | Phone | + +------+ + | Kirk French MD | PCP | | + +------+ + Encounter Details +--------+ + + + + | Date | Type | Department | Care Team | Description | +--------+ + + + + | 06/03/ | Hospital | [facility] | Conversion | Back pain, | | 2014 | Encounter | CONVERSION DEP [address] | Transaction, | unspecified location | | | | [address] | Provider Unknown | | | | | [place], [place] | [phone] | | | | | [address] | (Fax) | | | | | [phone] | | | +--------+ + + + [...] | | | | | | | #[id number], exp 07/2016 | | | | | [...] | | | | | | [place] [address] | | | | | | [phone] | | | | | | | | +--------+ + + + + | 05/01/ | Procedure | Cardiology | | | | 2019 | visit | | | | +--------+ + + + + | 05/01/ | Office | Cardiology | Silvia, | | | 2019 | Visit | | PARISA Vernon [address] | | | | | | [place], | | | | | | [place] [address] | | | | | | [phone] | | | | | | | | +--------+ + + + + | 05/21/ | Implant | Cardiology | Daljit Singletary, | Remote Device | | 2019 | Monitor | | [facility] | Interrogation | | | | | [place], | (Primary Dx); | | | | | [place] [address] | Pacemaker; | | | | | [phone] | Sinoatrial node | | | | | | dysfunction ([facility]) | | | | | | with [...]
--- OUTSIDE RECORDS SUMMARY | ~2020-04-15 | XMS | Encounter Summary ---
Demographics + + + | Address | [address] | | | [place] [address] | + + + | Home Phone [...] Team Providers + +------+ + | Care Slabber Light Name | Role | Phone | + [...] | | GASTROENTEROLOGY | [address] [place], [place] | | | | | [address] [place] | [address] [place], [place] | | | | | [address] [place], [place] | [address] | | | | | [address] | | | | | | [phone] | | | +--------+--------+ + + + [...] | | | | | | [place] [address] | | | | | | [phone] | | | | | | | | +--------+ + + + + | 05/01/ | Procedure | Cardiology | | | | 2019 | visit | | | | +--------+ + + + + | 05/01/ | Office | Cardiology | Silvia, | | | 2019 | Visit | | PAR[address] | | | | | | [place], | | | | | | [place] [address] | | | | | | [phone] | | | | | | | | +--------+ + + + + | 05/21/ | Implant | Cardiology | Daljit Singletary, | Remote Device | 2019 | Monitor | | [facility] | Interrogation | | | | | [place], | (Primary Dx); | | | | | [place] [address] | Pacemaker; | | | | | [phone] | Sinoatrial node | | | | | | dysfunction (HCC) | | | | | | with symptomatic | | | | | | bradycardia | +--------+ + + + + documented as of this encounter Visit Diagnoses Not on filedocumented in this encounter"
--- OUTSIDE RECORDS SUMMARY | ~2020-04-15 | XMS | Encounter Summary ---
Demographics + + + | Address | [address] | | | [place] [address] | + + + | Home Phone [...] Team Providers + +------+ + | Care Email Marketing Specialist Name | Role | Phone | + +------+ + PCP | Unavailable | + +------+ + Encounter Details +--------+ + + + + | Date | Type | Department | Care Team | Description | +--------+ + + + + | 05/24/ | Hospital | [facility] | Chi Fang | Unspecified Chest | | 2008 - | Encounter | [facility] | MD Kelsey [address] | Pain | | | | CLINICAL DECISION | [place] HERNANDEZ | | | 05/25/ | | [address] | [address] | | | 2008 | | [place], [place] | [phone] | | | | | [address] | | | | | | [phone] | | | +--------+ + + + [...] W | | | | | | [place], | | | | | | [place] [address] | | | | | | [phone] | | | | | | | | +--------+ + + + + | 05/01/ | Procedure | Cardiology | | | | 2019 | visit | | | | +--------+ + + + + | 05/01/ | Office | Cardiology | Silvia, | | | 2019 | Visit | | [address] | | | | | | [place], | | | | | | [place] [address] | | | | | | [phone] | | | | | | | | +--------+ + + + + | 05/21/ | Implant | Cardiology | Daljit Singletary, | Remote Device | 2019 | Monitor | | [address] [place] | Interrogation | | | | | [place], | (Primary Dx); | | | | | [place] [address] | Pacemaker; | | | | | [phone] | Sinoatrial node | | | | [...] Performed At | + + + | [id number] | | | Page 1 RADIOLOGY | | | [facility] [address]/ | | | OPO [facility] | | | CENTER NAME: [place] [address] | | | | | | | | | DATE OF : 1960 ORDER NUMBER: | | | [id number] EXAM DATE/TIME: 05/25/2009 08:00 A ORDERING PHYSICIAN: [...] | | administration of 14.9 mCi of [id number] Myoview. Stress | | | images postinjection [...] | | | images. Prone images demonstrate anabaptist of the inferior wall | | | [...] | | A P | | | TSG/earlene/[id number]/ cc: MD FEMI FOSS, | | | MD AMY SULLIVAN, DO | | + + + + + | Procedure Note | + + | Kalpesh Brown - 07/17/2019 2:13 AM PDT | | [id number] Page 1 | | RADIOLOGY CDU 75072/ | | OPO | | [facility] NAME: [address] | | [place] [address] | | | | DATE OF : 1960 | | | | ORDER NUMBER: [id number] | | EXAM DATE/TIME: 05/25/2009 08:00 A [...] administration of 14.9 mCi | | of [id number]-[id number] Myoview. Stress images postinjection of 47.7 | [...] | | | | Prone images demonstrate anabaptist of the inferior wall nicely. | | [...] | A | | P | | TSG/dc/[id number]/ | | cc: ANGELA MARADIAGA MD | | FEMI MARIE MD | | CHI FANG MD | | AMY BANEGAS DO | + + ECHO Complete (05/25/2009 7:50 AM PDT) + + | Specimen | + + | | + + + + + | Narrative | Performed At | + + + | [id number] | | | Page 1 ECHO [facility] NAME: | | | [place] [address] MEDICAL RECORD #: | | | [id number] | | | DATE OF : 1960 ORDER | | | NUMBER: [id number] EXAM DATE/TIME: 05/25/2009 07:34 PERFORMING | | [...] Excursion: | | | 1.89 cm E-F Burnett: 0.08 m/s HR: 43.51 BPM AV maxP.11 [...] | | | 0.33 m/s TV Dec Burnett: 1.73 m/s2 TV Dec Time: 344.24 ms TV | | | E Bravo: 0.59 m/s TV E/A Ratio: 1.80 TV maxP.40 mmHg TV | | | meanP.44 mmHg TV Vmax: 0.59 m/s TV Vmean: 0.30 m/s TV | | | VTI: 22.88 cm Commissions Manager: ANTHONY Authenticated by: Edwardo Tee | | | Carlos WINKLER Report Date/Time: 05-25-2009 10:19:52 | | + + + + + | Procedure Note | + + | Kalpesh Brown - 07/17/2019 2:13 AM PDT [id number] | | Page [address] [place] [address] NAME: [place], [place] | | [address] : ACCOUNT #: | | [id number]: DATE OF : 1960ORDER NUMBER: | | [id number] DATE/TIME: 05/25/2009 07:34PERFORMING PHYSICIAN: Edwardo Gonzalez | [...] mlLAESV Index (A-L): 26.03 ml/m2LAAs A2C: 14.93 [id number] A-L | | A2C: 44.50 mlLALs A2C: 4.25 cmLAAs A4C: 18.42 [id number] A-L A4C: 55.79 mlLALs | | A4C: 5.16 cmAo Diam: 3.91 cmAV Cusp: 2.23 cmLA Diam: 3.79 cmLA/Ao: 0.96%FS: | | 43.37 %EDV(Teich): 146.19 mlEF(Teich): 73.99 %ESV(Teich): 38.01 mlIVSd: 1.57 | | cmIVSs: 1.79 cmLVIDd: 5.48 cmLVIDs: 3.10 cmLVPWd: 1.32 cmLVPWs: 1.79 | | cmSV(Teich): 108.18 mlD-E Excursion: 1.89 cmE-F Burnett: 0.08 m/sHR: 43.51 BPMAV | | maxP.11 mmHgAV meanP.33 mmHgAV Vmax: 1.74 m/Zabrina Vmean: 1.06 m/Zabrina VTI: | | 35.51 cmAVA Vmax: 2.77 cm2AVA (VTI): 2.54 [id number] Dopp: 3.00 l/npdv4SAWG Dopp: | | 6.33 l/minHR: 70.25 BPMLVOT maxP.78 mmHgLVOT meanP.02 mmHgLVSI Dopp: | | 42.76 ml/m2LVSV Dopp: 90.23 mlLVOT Vmax: 1.30 m/sLVOT Vmean: 0.80 m/sLVOT VTI: | | 24.35 cmMV A Bravo: 0.70 m/sMV DecT: 242.46 msMV E Bravo: 0.91 m/sMV E/A Ratio: | | 1.31MV maxP.40 mmHgMV meanP.82 mmHgMV Vmax: 0.92 m/sMV Vmean: 0.37 m/sMV | | VTI: 26.47 cmMVA (VTI): 3.40 [id number] e': 0.08 m/sSeptal E/e': 11.24HR: | | 60.55 BPMPV maxP.04 mmHgPV meanP.39 mmHgPV Vmax: 0.87 m/sPV Vmean: 0.55 | | m/sPV VTI: 19.09 cmRAP: 5 mmHgRVSP: 21.72 mmHgTR maxP.72 mmHgTR Vmax: | | 2.04 m/sTV A Bravo: 0.33 m/sTV Dec Burnett: 1.73 m/s2TV Dec Time: 344.24 msTV E Bravo: | | 0.59 m/sTV E/A Ratio: 1.80TV maxP.40 mmHgTV meanP.44 mmHgTV Vmax: 0.59 | | m/sTV Vmean: 0.30 m/sTV VTI: 22.88 cm Commissions Manager: EMERYuthenticated by: Edwardo Tee | | Carlos [...] | |D-E Excursion: 1.89 cm | |E-F Burnett: 0.08 m/s | |HR: 43.51 BPM | [...] A Bravo: 0.33 m/s | |TV Dec Burnett: 1.73 m/s2 | |TV Dec Time: 344.24 ms | |TV E Bravo: 0.59 m/s | |TV E/A Ratio: 1.80 | |TV maxP.40 mmHg | |TV meanP.44 mmHg | |TV Vmax: 0.59 m/s | |TV Vmean: 0.30 m/s | |TV VTI: 22.88 cm | | | |Commissions Manager: KVW | |Authenticated by: Edwardo Gonzalez MD | |Report Date/Time: 05-25-2009 10:19:52 | + + CT Head wo Contrast (05/24/2009 12:58 PM PDT) + + | Specimen | + + | | + + + + + | Narrative | Performed At | + + + | [id number] | | | Page 1 RADIOLOGY | | | [facility] [address]/ | | | OPO [facility] | | | [place]ENTER NAME: [place] [address] | | | | | | | | | DATE OF : 1960 ORDER NUMBER: | | | [id number] EXAM DATE/TIME: 05/24/2009 12:47 P ORDERING PHYSICIAN: [...] | | asymmetrically dense vessel about the [place]. No | | | hydrocephalus. [...] 08:45 P P P | | | TSG/tp/[id number]/ cc: MD ANGELA AVENDAÑO MD | | | MD AMY HAM DO | | + + + + + | Procedure Note | + + | Kalpesh Brown Conversion - 07/17/2019 2:13 AM PDT | | [id number] Page 1 | | RADIOLOGY CDU 76734/ | | OPO | | [facility] NAME: [address] | | [place] [address] | | | | DATE OF : 1960 | | | | ORDER NUMBER: [id number] | | EXAM DATE/TIME: 05/24/2009 12:47 P [...] is no asymmetrically dense vessel about the [place]. No | | hydrocephalus. Some [...] | P | | P | | [facility]/tp/[id number]/ | | cc: VINAY HILL MD | | ANGELA MARADIAGA MD | | FEIM MARIE MD | | AMY BANEGAS DO | + + XR Chest 2 Vws (05/24/2009 11:31 AM PDT) + + | Specimen | + + | | + + + + + | Narrative | Performed At | + + + | [id number] | | | Page 1 RADIOLOGY | | | CDU 67466/ | | | OPO [facility] | | | CENTER NAME: [place] [address] | | | | | | | | | DATE OF : 1960 ORDER NUMBER: | | | [id number] EXAM DATE/TIME: 05/24/2009 11:19 A ORDERING PHYSICIAN: [...] DT: | | | 05/24/2009 05:38 P [facility]//[id number]/ cc: VINAY HILL MD | | | MD FEMI FOSS MD AMY | | | P BASSAM, DO | | + + + + + | Procedure Note | + + | Kalpesh Brown - 07/17/2019 2:13 AM PDT | | [id number] Page 1 | | RADIOLOGY CDU 51526/ | | OPO | | [facility] NAME: [address] | | [place] [address] | | | | DATE OF : 1960 | | | | ORDER NUMBER: [id number] | | EXAM DATE/TIME: 05/24/2009 11:19 A [...] | P | | P | | [facility]//[id number]/ | | cc: VINAY HILL MD | | ANGELA MARADIAGA MD | | FEMI MARIE MD | | AMY BANEGAS DO | + + documented in this encounter Visit Diagnoses + + | Diagnosis | + + | Chest pain, unspecified | + + documented in this encounter"
--- OUTSIDE RECORDS SUMMARY | ~2020-04-15 | XMS | Encounter Summary ---
Demographics + + + | Address | [address] | | | [place] [address] | + + + | Home Phone [...] + +------+ + | Care Quality Improvement Specialist Name | Role | Phone | [...] Refill | | 2011 | | [facility] [place] | DO [address] | | | | | [address] | [place] | | | | | [place] | [address] | | | | | [address] | | | | | | [phone] | | | +--------+--------+ + + + [...] | | | | | | [place] [address] | | | | | | [phone] | | | | | | | [...] | | | | | | [place] [address] | | | | | | [phone] | | | | | | | | +--------+ + + + + | 05/21/ | Implant | Cardiology | Daljit Singletary, | Remote Device | 2019 | Monitor | | [address] | Interrogation | | | | | [place], | (Primary Dx); | | | | | [place] [address] | Pacemaker; | | | | | [phone] | Sinoatrial node | | | | [...]
--- OUTSIDE RECORDS SUMMARY | ~2020-04-15 | XMS | Encounter Summary ---
Demographics + + + | Address | [address] | | | [place] [address] | + + + | Home Phone [...] Providers + +------+ + | Care Hospital Staff Pharmacist Name | Role | Phone | + [...] | | | | | | [place], [place] | (Fax) | | | | | [address] | | | | | | [phone] | | | +--------+ + + + [...] | | | | | | [place] [address] | | | | | | [phone] | | | | | | | | +--------+ + + + + | 05/01/ | Procedure | Cardiology | | | | 2019 | visit | | | | +--------+ + + + + | 05/01/ | Office | Cardiology | Sil[place], | | | 2019 | Visit | | PARISA [address] | | | | | | [place], | | | | | | [place] [address] | | | | | | [phone] | | | | | | | | +--------+ + + + + | 05/21/ | Implant | Cardiology | Daljit Singletary, | Remote Device | | 2019 | Monitor | | [address] [place] | Interrogation | | | | | [place], | (Primary Dx); | | | | | [place] [address] | Pacemaker; | | | | | [phone] | Sinoatrial node | | | | | | dysfunction (HCC) | | | | | | with symptomatic | | | | | | bradycardia | +--------+ + + + + documented as of this encounter Visit Diagnoses Not on filedocumented in this encounter"
--- OUTSIDE RECORDS SUMMARY | ~2020-04-15 | XMS | Encounter Summary ---
Demographics + + + | Address | [address] | | | [place] [address] | + + + | Home Phone [...] Providers + +------+ + | Care Basket Assembler Name | Role | Phone | + +------+ + PCP | Unavailable | + +------+ + Encounter Details +--------+ + + + + | Date | Type | Department | Care Team | Description | +--------+ + + + + | 12/16/ | Hospital | [facility] | | | | 2010 | Encounter | MED CTR LABORATORY | | | | | | [address] | | | | | | [place] | | | | | | [address] | | | | | | [phone] | | | +--------+ + + + [...] | | | | | | [place] [address] | | | | | | [phone] | | | | | | | [...] | | | | | | [place] [address] | | | | | | [phone] | | | | | | | | +--------+ + + + + | 05/21/ | Implant | Cardiology | Daljit Singletary, | Remote Device | 2019 | Monitor | | [address] | Interrogation | | | | | [place], | (Primary Dx); | | | | | [place] [address] | Pacemaker; | | | | | [phone] | Sinoatrial node | | | | | | dysfunction (HCC) | | | | | | with symptomatic | | | | | | bradycardia | +--------+ + + + + documented as of this encounter Visit Diagnoses Not on filedocumented in this encounter"
--- OUTSIDE RECORDS SUMMARY | ~2020-04-15 | XMS | Encounter Summary ---
Demographics + + + | Address | [address] | | | [place] [address] | + + + | Home Phone [...] Providers + +------+ + | Care Steam And Power Superintendent Name | Role | Phone | [...] + + | 06/26/ | Office | [facility] | Geri Angel, | Coronary artery | | 2015 | Visit | CARDIOLOGY [address] | HOUSE DIRECTOR [address] | disease involving | | | | [place], | [place] [facility], [place] | [place] coronary | | | | [place] [address] | [address] | artery without | | | | [phone] | | angina pectoris | | | [...] not occur with exertion. He went to [facility] at the end of for his symptoms [...] it. He is planning to travel to [facility] in the ve ry near future for up to a month due to his orckwu-wm-odl having a significant stroke there MEDICAL, SURGICAL, [...] disease involving assiniboine and sioux coronary artery without angina pectoris Cannabis abuse, [...] by mouth Daily. 30 tabl et [facility] Natural Products (OSTEO [...] 3rd dose, call 911 25 tablet 11 Garfield-3 Fatty Acids (SALMON OIL-1000 PO) CAPS, one capsule by mouth daily twice daily ONE TOUCH DELICA LANCETS [facility] [...] Daily. to reduce urinary frequenc y Lot #[id number], exp 07/2016 21 capsule 0 Specialty Vitamins [...] INTERROGATION REVIEWED BY: PARISA Velazquez DEVICE IDENTIFICATION: Supervisor Packing Room: [place]. Leads: Right atrium and right ventricle (dual [...] ventricular arrhythmia performed by Dr. Gambino at [facility] on 01/30/2013. Patient had spontaneous [...] to go back in 3 days to [place] for an attempt of ablation under general [...] this chart may have been created with [employer] voice recognition software. Occasi onal wrong-word or [...] W | | | | | | [place], | | | | | | [place] [address] | | | | | | [phone] | | | | | | | | +--------+ + + + + | 05/01/ | Procedure | Cardiology | | | | 2019 | visit | | | | +--------+ + + + + | 05/01/ | Office | Cardiology | Silvia, | | | 2019 | Visit | | [address] W | | | | | | [place], | | | | | | [place] [address] | | | | | | [phone] | | | | | | | | +--------+ + + + + | 05/21/ | Implant | Cardiology | Daljit Singletary, | Remote Device | | 2020 | Monitor | | [address] [facility] | Interrogation | | | | | [place], | (Primary Dx); | | | | | [place] [address] | Pacemaker; | | | | | [phone] | Sinoatrial node | | | | [...] PARISA Velazquez DEVICE IDENTIFICATION: | | | Supervisor Packing Room: [place]. Leads: Right atrium and right | | [...] disease involving assinibo[place] and sioux coronary artery without angina pectoris - | | Primary | + + | SINUS BRADYCARDIA Sinoatrial node dysfunction | + + | Essential hypertension Unspecified essential hypertension | + + | Hyperlipidemia Other and unspecified hyperlipidemia | + + | Symptomatic PVCs Other premature beats | + + documented in this encounter
--- OUTSIDE RECORDS SUMMARY | ~2020-04-15 | XMS | Encounter Summary ---
Demographics + + + | Address | [address] | | | [place] [address] | + + + | Home Phone [...] + +------+ + | Care Director Of Global Sales Name | Role | Phone | [...] | initial encounter; | | | | [place], [place] | | Elevated blood | | | | [address] | | pressure reading; | | | | [phone] | | Numbness and | | | [...] + + + +---------+ + + | Baxter-3 Fatty | CAPS, one capsule by | [...] | | | | | | [place] [address] | | | | | | [phone] | | | | | | | | +--------+ + + + + | 05/01/ | Procedure | Cardiology | | | | 2019 | visit | | | | +--------+ + + + + | 05/01/ | Office | Cardiology | Silvia, | | | 2019 | Visit | | PARISA [place] W | | | | | | [place], | | | | | | [place] [address] | | | | | | [phone] | | | | | | | | +--------+ + + + + | 05/21/ | Implant | Cardiology | Daljit Singletary, | Remote Device | | 2020 | Monitor | | [address] [facility] | Interrogation | | | | | [place], | (Primary Dx); | | | | | [place] [address] | Pacemaker; | | | | | [phone] | Sinoatrial node | | | | [...]
--- OUTSIDE RECORDS SUMMARY | ~2020-04-15 | XMS | Encounter Summary ---
Demographics + + + | Address | [address] | | | [place] [address] | + + + | Home Phone [...] Providers + +------+ + | Care Raw Stock Dyeing Machine Tender Name | Role | [...] | | PVCs | PARISA [place] | [address] | | | | | Procedures | [address] | [address] | | | | | [place] OFFICE | [place] | [place] | | | | | CONSULTATION | [place], | [address] Phone: | | | | | NEW/ESTAB | [place] | [phone] | | | | | PATIENT 40 | [address] | Fax: | | | | | MIN | Phone: | [phone] | | | | | | [phone] | | | | | | | Fax: | | | | | | | [phone] | | +--------+--------+ + + + + Encounter Details +--------+---------+ + + + | Date | Type | Department | Care Team | Description | +--------+---------+ + + + | 11/30/ | Office | [facility] | Jay Gambino MD | Symptomatic PVCs | | 2015 | Visit | [facility]IOLOGY [place] | [address] | (Primary Dx) | | | | HI[address] | [address] [place], | | | | | [facility] [address] [place] | [place] [address] | | | | | [address] | [phone] | | | | | [phone] | | | +--------+---------+ + + + [...] Gambino MD - 11/30/2014 5:37 PM PST [facility] [address] [place] [address] Patient Name: Moe Sanchez Date: 1960 Date [...] luz marcos as needed for Chest pain. [place]-3 Fatty Acids (SALMON OIL-1000 PO) CAPS, one [...] 1984); Hypoglycemia; Drug addiction in remission ([facility]); HTN (hypertension); Hypercholesterolemia; Bipolar 1 [...] were not detected in the editing p MiniTimeess. Should you have any questions or concerns, [...] W | | | | | | [place], | | | | | | [place] [address] | | | | | | [phone] | | | | | | | | +--------+ + + + + | 05/01/ | Procedure | Cardiology | | | | 2019 | visit | | | | +--------+ + + + + | 05/01/ | Office | Cardiology | Silvia, | | | 2019 | Visit | | PARISA [place] W | | | | | | [place], | | | | | | [place] [address] | | | | | | [phone] | | | | | | | | +--------+ + + + + | 05/21/ | Implant | Cardiology | AnshuojhnsoncherelleDaljit, | Remote Device | | 2019 | Monitor | | [address] [facility] | Interrogation | | | | | [place], | (Primary Dx); | | | | | [place] [address] | Pacemaker; | | | | | [phone] | Sinoatrial node | | | | [...]
--- OUTSIDE RECORDS SUMMARY | ~2020-04-15 | XMS | Encounter Summary ---
Demographics + + + | Address | [address] | | | [place] [address] | + + + | Home Phone [...] Providers + +------+ + | Care Rn Unit Manager Name | Role | Phone | + +------+ + PCP | Unavailable | + +------+ + Encounter Details +--------+ + + + + | Date | Type | Department | Care Team | Description | +--------+ + + + + | 10/19/ | Hospital | [facility] | | | | 1992 | Encounter | MED CTR EMERGENCY | | | | | | CENTER [address] | | | | | | [place] | | | | | | [address] | | | | | | [phone] | | | +--------+ + + + [...] | | | | | | [place] [address] | | | | | | [phone] | | | | | | | | +--------+ + + + + | 05/01/ | Procedure | Cardiology | | | | 2019 | visit | | | | +--------+ + + + + | 05/01/ | Office | Cardiology | [place], | | | 2019 | Visit | | [address] | | | | | | [place], | | | | | | [place] [address] | | | | | | [phone] | | | | | | | | +--------+ + + + + | 05/21/ | Implant | Cardiology | Daljit Singletary, | Remote Device | 2019 | Monitor | | [address] [place] | Interrogation | | | | | [place], | (Primary Dx); | | | | | [place] [address] | Pacemaker; | | | | | [phone] | Sinoatrial node | | | | | | dysfunction (HCC) | | | | | | with symptomatic | | | | | | bradycardia | +--------+ + + + + documented as of this encounter Visit Diagnoses Not on filedocumented in this encounter"
--- OUTSIDE RECORDS SUMMARY | ~2020-04-15 | XMS | Encounter Summary ---
Demographics + + + | Address | [address] | | | [place] [address] | + + + | Home Phone [...] Team Providers + +------+ + | Care Tearer Press Clipping Name | Role | Phone | + +------+ + PCP | Unavailable | + +------+ + Encounter Details +--------+ + + + + | Date | Type | Department | Care Team | Description | +--------+ + + + + | 01/27/ | [facility] | [facility] | Jonathan, | | | 2008 | Encounter | MED CTR EMERGENCY | Martell Cr MD [address] | | | | | CENTER [address] | [place] | | | | | [place] | [place] [address] | | | | | [address] | [phone] | | | | | [phone] | | | +--------+ + + + [...] W | | | | | | [place], | | | | | | [place] [address] | | | | | | [phone] | | | | | | | | +--------+ + + + + | 05/01/ | Procedure | Cardiology | | | | 2019 | visit | | | | +--------+ + + + + | 05/01/ | Office | Cardiology | [place]via | | | 2019 | Visit | | PARISA Vernon [address] | | | | | | [place], | | | | | | [place] [address] | | | | | | [phone] | | | | | | | | +--------+ + + + + | 05/21/ | Implant | Cardiology | Daljit Singletary, | Remote Device | 2019 | Monitor | | MD [address] [place] | Interrogation | | | | | [place], | (Primary Dx); | | | | | [place] [address] | Pacemaker; | | | | | [phone] | Sinoatrial node | | | | | | dysfunction (HCC) | | | | | | with symptomatic | | | | | | bradycardia | +--------+ + + + + documented as of this encounter Visit Diagnoses Not on filedocumented in this encounter"
--- OUTSIDE RECORDS SUMMARY | ~2020-04-15 | XMS | Encounter Summary ---
Demographics + + + | Address | [address] | | | [place] [address] | + + + | Home Phone [...] Providers + +------+ + | Care Space Systems Operations Superintendent Name | Role | Phone | + +------+ + PCP | Unavailable | + +------+ + Encounter Details +--------+ + + + + | Date | Type | Department | Care Team | Description | +--------+ + + + + | 01/20/ | [facility] | [facility] | Geri Angel, | | | 2009 | Encounter | MED CTR GENERIC OP | MENTAL HYGIENIST [address] | | | | | CONV DEPT [address] | [address] [place] | | | | | [place], | [address] | | | | | [place] [address] | | | | | | [phone] | | | +--------+ + + + [...] | | | | | | [place] [address] | | | | | | [phone] | | | | | | | [...] | | | | | | [place] [address] | | | | | | [phone] | | | | | | | | +--------+ + + + + | 05/21/ | Implant | Cardiology | Daljit Singletary, | Remote Device | 2019 | Monitor | | [address] [place] | Interrogation | | | | | [place], | (Primary Dx); | | | | | [place] [address] | Pacemaker; | | | | | [phone] | Sinoatrial node | | | | | | dysfunction (HCC) | | | | | | with symptomatic | | | | | | bradycardia | +--------+ + + + + documented as of this encounter Visit Diagnoses Not on filedocumented in this encounter"
--- OUTSIDE RECORDS SUMMARY | ~2020-04-15 | XMS | Encounter Summary ---
Demographics + + + | Address | [address] | | | [place] [address] | + + + | Home Phone [...] Team Providers + +------+ + | Care Base Loader Name | Role | Phone | [...] + + | 08/24/ | Office | [facility] | [place], | Ascending thoracic | | 2018 | Visit | CARDIOLOGY [address] | [address] | aortic aneurysm | | | | [place], | [place], | ([facility]) (Primary Dx); | | | | [place] [address] | [place] [address] | Syncope, unspecified | | | | [phone] | [phone] | syncope type; | | | | | | Hypertension, | | | | | | unspecified type; | | | | | | Coronary artery | | | | | | disease involving | | | | | | [place] coronary | | | | | | artery of [place] | | | | | | heart [...] of non-critical coronary artery d isease involving [place] coronary artery of [place] heart without angina pectoris, essential h ypertension, [...] Preventative health care Coronary artery disease involving [place] coronary artery of [place] heart without angina pectoris Cannabis abuse, daily [...] by mouth Daily. 90 tabl et 1 [facility] Natural Products (OSTEO BI-FLEX/5-LOXIN ADVANCED PO) Take [...] 3RD DOSE, CALL 911 100 tablet 3 Tell-3 Fatty Acids (SALMON OIL-1000 PO) CAPS, one capsule by mouth daily twice daily ONE TOUCH DELICA LANCETS [facility] [...] now present Confirmed by HIREN WINKLER, ANGELA ([id number]) on 07/28/2018 6:03:35 AM LAB RESULTS reviewed during visit today primarily from [facility]: LIPID Lab Results Component Value [...] PLTEX 157 04/11/2018 I reviewed records from [facility] for emergency department visit o [...] to go back in 3 days to [place] for an attempt of ablation under general [...] He is in class II of the [place] [employer] f unctional class. There are [...] subsided. 2. Non-critical Coronary artery disease involving [place] coronary artery of [place] heart [facility] angina pectoris: A. Normal exercise sestamibi stress [...] cannot completely be ruled out . [facility] 12/25/13, shows non critical coronary artery [...] this chart may have been created with Asoka voice recognition software. Occasi onal wrong-word or [...] | | | | | | [place] [address] | | | | | | [phone] | | | | | | | | +--------+ + + + + | 05/01/ | Procedure | Cardiology | | | | 2019 | visit | | | | +--------+ + + + + | 05/01/ | Office | Cardiology | [place], | | | 2019 | Visit | | PARISA Vernon [address] | | | | | | [place], | | | | | | [place] [address] | | | | | | [phone] | | | | | | | | +--------+ + + + + | 05/21/ | Implant | Cardiology | Daljit Singletary, | Remote Device | | 2019 | Monitor | | [address] [place] | Interrogation | | | | | [place], | (Primary Dx); | | | | | [place] [address] | Pacemaker; | | | | | [phone] | Sinoatrial node | | | | [...] + + | Coronary artery disease involving [place] coronary artery of [place] heart without | | angina pectoris | [...]
--- OUTSIDE RECORDS SUMMARY | ~2020-04-15 | XMS | Encounter Summary ---
Demographics + + + | Address | [address] [place] [address] [address] LO[address] | | | [place] [address] | + + + | Home Phone [...] [place] | | | | | [address] | | + + + + + Care Team Providers + +------+ + | Care Litigation Paralegal Name | Role | Phone | [...] | | 2019 | | Center at [facility] [address] | MD [address] | | | | | [address] | [place], [place] | | | | | Mailcode: Center | [address] | | | | | [facility] and | [phone] | | | | | [facility] 2 | | | | | | [place], [place] | | | | | | [address] | | | | | | [phone] | | | +--------+ + + + [...]
--- OUTSIDE RECORDS SUMMARY | ~2020-04-15 | XMS | Encounter Summary ---
Demographics + + + | Address | [address] | | | [place] [address] | + + + | Home Phone [...] Team Providers + +------+ + | Care Naval Science Teacher Name | Role | Phone [...] + | 03/07/ | Office | [facility] | [place], | SINUS BRADYCARDIA | | 2013 | Visit | CARDIOLOGY [address] | [place] [address] | (Primary Dx); | | | | [place], | [place], | Syncope; Symptomatic | | | | [place] [address] | [place] [address] | PVCs; Pacemaker - | | | | [phone] | [phone] | Medtronic - [id number] | | | [...] Sanchez Date: March 07, 2014 : 1960 Life Scientist: Kailey Pruitt RN Device Publications Editor:Medtronic Sense (mV) Impedance (?) Capture (V) Capture (ms) A Lead >5.60 402 1.500 0.09 RV Lead >31.36 522 2.00 0.09 LV Lead Battery Impedance (?): 528 Battery Voltage (V): 2.79 MA Interval (ms): 147 AR Interval (ms): 217 VA Conduction: Mode Switch Events: 0 % of time: 0 -JOB COACH/JOB DEVELOPER: <0.1% AP-JOB COACH/JOB DEVELOPER: 0.1% -VS: 23.8% AP-VS: 76.1% JOB COACH/JOB DEVELOPER: Magnetic Rate: 85 LINDA: 65 LEAH: Current [...] Pruitt RN 03/07/2014 12:00 Janeen Mccollum AR INSOLE CEMENTER - 03/07/2014 11:07 AM PDT PATIENT NAME: [...] headaches. He paulino d been seen at [facility] a couple times with chest pain and [...] needed for Chest pain. 25 tablet 12 [place]-3 Fatty Acids (SALMON OIL-1000 PO) CAPS, one [...] Sanchez Date: March 07, 2014 : 1960 Life Scientist: Kailey Pruitt RN Device Publications Editor:V[employer] Newsletter Sense (mV) Impedance (?) Capture (V) Capture (ms) A Lead >5.60 402 1.500 0.09 RV Lead >31.36 522 2.00 0.09 LV Lead Battery Impedance (?): 528 Battery Voltage (V): 2.79 MA Interval (ms): 147 AR Interval (ms): 217 VA Conduction: Mode Switch Events: 0 % of time: 0 -JOB COACH/JOB DEVELOPER: <0.1% AP-JOB COACH/JOB DEVELOPER: 0.1% -VS: 23.8% AP-VS: 76.1% JOB COACH/JOB DEVELOPER: Magnetic Rate: 85 LINDA: 65 LEAH: Current [...] D. [facility] 12/25/13, shows noncritical coronary artery disease, [...] pain. He is in class II of [place] [employer] functional class . There are [...] to go back in 3 days to [place] for an attempt of ablation under general [...] palpitations.. He is in class II of [place] Heart [employer] functional class. There are no [...] bring in his blood pressure logs from [facility] e 5. Lightheadedness and dizziness/ presyncope: A. [...] made to ensure accuracy; however, inadvertent computerized wet finisher wool errors may be pre sent. Electronically signed [...] | | | | | | [place] [address] | | | | | | [phone] | | | | | | | | +--------+ + + + + | 05/01/ | Procedure | Cardiology | | | | 2019 | visit | | | | +--------+ + + + + | 05/01/ | Office | Cardiology | [place], | | | 2019 | Visit | | [address] | | | | | | [place], | | | | | | [place] [address] | | | | | | [phone] | | | | | | | | +--------+ + + + + | 05/21/ | Implant | Cardiology | Daljit Singletary, | Remote Device | 2019 | Monitor | | [address] [facility] | Interrogation | | | | | [place], | (Primary Dx); | | | | | [place] [address] | Pacemaker; | | | | | [phone] | Sinoatrial node | | | | [...] 07, 2014 : | | | 1960 Life Scientist: Kailey Pruitt RN Device | | | Publications Editor:MoneyReeftronic Sense (mV) Impedance (?) Capture (V) | | | Capture (ms) A Lead >5.60 402 1.500 0.09 RV Lead >31.36 522 2.00 | | | 0.09 LV Lead Battery Impedance (?): 528 Battery Voltage (V): | | | 2.79 MA Interval (ms): 147 AR Interval (ms): 217 VA Conduction: | | | Mode Switch Events: 0 % of time: 0 -JOB COACH/JOB DEVELOPER: <0.1% AP-JOB COACH/JOB DEVELOPER: 0.1% -VS: | | | 23.8% AP-VS: 76.1% JOB COACH/JOB DEVELOPER: Magnetic Rate: 85 LINDA: 65 LEAH: Current [...] | | Date: March 07, 2014DOB: 1960 Life Scientist: Kailey Pruitt RN Device | | Publications Editor:Medtronic Sense (mV) Impedance (?) Capture (V) Capture (ms) A Lead >5.60 | | 402 1.500 0.09 RV Lead >31.36 522 2.00 0.09 LV Lead Battery Impedance (?): 528 | | Battery Voltage (V): 2.79 MA Interval (ms): 147 AR Interval (ms): 217 VA Conduction: | | Mode Switch Events: 0 % of time: 0 -JOB COACH/JOB DEVELOPER: <0.1% AP-JOB COACH/JOB DEVELOPER: 0.1% -VS: 23.8% AP-VS: 76.1% | | JOB COACH/JOB DEVELOPER: Magnetic Rate: 85 LINDA: 65 LEAH: Current [...]
--- OUTSIDE RECORDS SUMMARY | ~2020-04-15 | XMS | Encounter Summary ---
Demographics + + + | Address | [address] | | | [place] [address] | + + + | Home Phone [...] | disease involving | | | | [place], | [place], | [place] | | | | [place] [address] | [place] [address] | artery without | | | | [phone] | [phone] | angina pectoris | | | | [...] W | | | | | | [place], | | | | | | [place] [address] | | | | | | [phone] | | | | | | | | +--------+ + + + + | 05/01/ | Procedure | Cardiology | | | | 2019 | visit | | | | +--------+ + + + + | 05/01/ | Office | Cardiology | [place], | | | 2019 | Visit | | [address] | | | | | | [place], | | | | | | [place] [address] | | | | | | [phone] | | | | | | | | +--------+ + + + + | 05/21/ | Implant | Cardiology | Daljit Singletary, | Remote Device | | 2020 | Monitor | | MD [address] [facility] | Interrogation | | | | | [place], | (Primary Dx); | | | | | [place] [address] | Pacemaker; | | | | | [phone] | Sinoatrial node | | | | [...] MD | | | | | | ([id number]) on 08/29/2015 | | | | | [...] + + | Coronary artery disease involving [place] coronary artery without angina pectoris - | | Primary | + + documented in this encounter"
--- OUTSIDE RECORDS SUMMARY | ~2020-04-15 | XMS | Encounter Summary ---
Demographics + + + | Address | [address] | | | [place] [address] | + + + | Home Phone [...] Providers + +------+ + | Care Technical Marketing Consultant Name | Role | Phone | [...] [place] | | | | | | [address] | [address] Phone: | | | | | | Phone: | [phone] | | | | | | [phone] | Fax: | | | | | | Fax: | [phone] | | | | | | [phone] | | +--------+ + + + + + Reason for Visit + + + | Reason | Comments | + + + | Medicare Wellness | | + + + Encounter Details +--------+---------+ + + + | Date | Type | Department | Care Team | Description | +--------+---------+ + + + | 07/25/ | Office | [facility] | Michael Amanda, | Preventative health | | 2014 | Visit | MEDIC[facility] [place] | DO [address] | care (Primary Dx); | | | | [address] | [place] | Cannabis abuse, | | | | [place] | [address] | daily use; Urinary | | | | [address] | | frequency; | | | | [phone] | | Incontinence; | | | | [...] needed for Chest pain. 25 tablet 12 Dante-3 Fatty Acids (SALMON OIL-1000 PO) CAPS, one [...] as Nurse Practitioner (Cardiology) FENG Chou (Physician Vehicle Damage Appraiser) Current Medicare Suppliers: [facility] - [place], [place] - [address] [place] [address] [facility] - [place], [place] - [address] [place] [address] HEALTH RISK ASSESSMENT: : The patient or [...] no kevin in the usual sections in [employer]. documented in this en counter Plan of Treatment +--------+ + + + + | Date | Type | Specialty | Care Team | Description | +--------+ + + + + | 05/01/ | Appointment | Radiology | [place], | | | 2019 | | | PARISA [address] | | | | | | [place], | | | | | | [place] [address] | | | | | | [phone] | | | | | | | | +--------+ + + + + | 05/01/ | Procedure | Cardiology | | | | 2019 | visit | | | | +--------+ + + + + | 05/01/ | Office | Cardiology | [place], | | | 2019 | Visit | | PARISA [address] | | | | | | [place], | | | | | | [place] [address] | | | | | | [phone] | | | | | | | | +--------+ + + + + | 05/21/ | Implant | Cardiology | Daljit Singletary, | Remote Device | 2019 | Monitor | | MD [address] [place] | Interrogation | | | | | [place], | (Primary Dx); | | | | | [place] [address] | Pacemaker; | | | | | [phone] | Sinoatrial node | | | | [...] Primary Routine general medical examination at a [facility] | | care facility | + [...]
--- OUTSIDE RECORDS SUMMARY | ~2020-04-15 | XMS | Encounter Summary ---
Demographics + + + | Address | [address] | | | [place] [address] | + + + | Home Phone [...] Team Providers + +------+ + | Care Shell Trim Tool Setter Name | Role | Phone | [...] + + | 10/01/ | Office | [facility] | Mary Bradshaw | Injury of left foot, | | 2013 | Visit | CARE [address] | Guy Larkin MD | initial encounter | | | | [place] | [address] | (Primary Dx) | | | | [address] | [place] | | | | | [phone] | [address] | | | | | | | [...] half hours. 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 I provided patient with Dr. Bradley's card so he may contact us for results. Patient's best phone number: [phone] Renetta Lockwood RN ary [place]shaw MD - [...] | | | | | | [place] [address] | | | | | | [phone] | | | | | | | | +--------+ + + + + | 05/01/ | Procedure | Cardiology | | | | 2019 | visit | | | | +--------+ + + + + | 05/01/ | Office | Cardiology | [place], | | | 2019 | Visit | | PARISA Vernon [address] | | | | | | [place], | | | | | | [place] [address] | | | | | | [phone] | | | | | | | | +--------+ + + + + | 05/21/ | Implant | Cardiology | Daljit Singletary, | Remote Device | | 2019 | Monitor | | MD [address] [facility] | Interrogation | | | | | [facility], | (Primary Dx); | | | | | [place] [address] | Pacemaker; | | | | | [phone] | Sinoatrial node | | | | [...] CALCANEAL ENTHESOPHYTES. Dictated and Signed by: Rangel Bay | | MD Arthur Electronically signed: 10/01/2014 [...] + | MISCELLANEOUS LAB | | | [phone] | + +---------+ + + | MISCELANIOUS LAB | | | [phone] | + +---------+ + + documented in this encounter Visit Diagnoses + + | Diagnosis | + + | Injury of left foot, initial encounter - Primary | + + documented in this encounter
--- OUTSIDE RECORDS SUMMARY | ~2020-04-15 | XMS | Encounter Summary ---
Demographics + + + | Address | [address] | | | [place] [address] | + + + | Home Phone [...] Team Providers + +------+ + | Care Ironworker Foreman Name | Role | Phone | + +------+ + | Michael Amanda DO | PCP | | + +------+ + Encounter Details +--------+ + + + + | Date | Type | Department | Care Team | Description | +--------+ + + + + | 02/27/ | Hospital | [facility] | Shelly Carter DO | Chest pain; | | 2013 - | Encounter | [facility] | [address] | Pacemaker; | | | | CLINICAL DECISION | [place] [address] | Mild dehydration | | 02/28/ | | [address] [facility] | [phone] | | | 2013 | | [place], [place] | | | | | | [address] | | | | | | [phone] | | | +--------+ + + + [...] Date of Service: 02/28/141044 Status: Addendum Supervisor Decorating: Dev Montano MD (Physician) Related Notes: Original Note by Dev Montano MD (Physician) filed at 02/28/14 1107 Patient ID: Pina Gay [id number] y.o. 1960 Admit date: 02/27/2014 Discharge [...] - 99 mg/dL Final Testing performed at [address] [address] BUN Date Value Range Status 02/28/2014 15 8 - 25 mg/dL Final Testing performed at [address] [address] CREATININE Date Value Range Status 02/28/2014 0.74 0.70 - 1.30 mg/dL Final Testing performed at [address] [address] BUN/CREAT Date Value Range Status 02/28/2014 20 Final Testing performed at [address] [address] TOTAL PROTEIN Date Value Range Status 02/28/2014 6.1* 6.3 - 8.2 g/dL Final Testing performed at [address] [address] GLOBULIN Date Value Range Status 02/28/2014 2.1 1.3 - 4.9 g/dL Final Testing performed at [address] [address] TBIL Date Value Range Status 02/28/2014 1.4 0.1 - 1.5 mg/dL Final Testing performed at [address] [address] ALT Date Value Range Status 02/28/2014 27 10 - 65 U/L Final Testing performed at [address] [address] AST Date Value Range Status 02/28/2014 31 10 - 45 U/L Final Testing performed at [address] [address] SODIUM Date Value Range Status 02/28/2014 138 135 - 143 mmol/L Final Testing performed at [facility], [address] [place] [address] POTASSIUM Date Value Range Status 02/28/2014 3.4* 3.5 - 4.9 mmol/L Final Testing performed at [facility], [address] [place] [address] CHLORIDE Date Value Range Status 02/28/2014 108 99 - 109 mmol/L Final Testing performed at [address] [address] CO2 Date Value Range Status 02/28/2014 21* 23 - 32 mmol/L Final Testing performed at [facility], [address] [place] [address] ANION GAP AGAP Date Value Range Status 02/28/2014 12 5 - 20 mmol/L Final Testing performed at [facility], [address] [place] [address] Xr Chest Pa And Lateral 02/27/2014 PINA [...] 3-D reconstructi ons were performed using the Adreima 3-D software and sent to PACS. Oral Contrast: None I V contrast: 100 mL IsoVue 370 COMPARISON: None. FINDINGS: CHEST: The general education professor view shows a p acemaker via left [...] pacemaker, who [facility] complaining of chest pain which [...] catheterization recently done by Dr. Singletary in [place] in December 2013 at [facility] which showed minimal occlusive disease. One artery was 25% and another was 15%, per patient. I requested official cardiac catheterization report from [place] and still waiting for it to come. 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 You may get these medications from any pharmacy. amLODIPine 5 MG tablet pantoprazole 40 MG tablet Activity: activity as tolerated Diet: cardiac diet Wound Care: not applicable There are no Patient Instructions on file for this visit. Per Pt None Chaka Ortiz MD [address] [facility] [id number] In 1 week Ariel Pulido MD [address] [facility] [id number] In 1 week Daljit Singletary MD [address] [facility] [address] In 1 week Signed: DEV MONTANO 02/28/2014 10:45 AM Addendum:ADDENDUM I just received a cardiac catheterization report from [facility], [place], which was done on December 25, 2013. [...] + + + +---------+ + + | Hickman-3 Fatty | CAPS, one capsule by | [...] Date of Service: 02/28/141210 Status: Signed Supervisor Decorating: Bijal Sosa RN (Registered Nurse) Discharge instructions [...] Date of Service: 02/28/1411 Status: Signed Supervisor Decorating: Mary Wetzel RPH (Pharmacist) Clinical Pharmacy Note: [...] | | | | | | [place] [address] | | | | | | [phone] | | | | | | | | +--------+ + + + + | 05/01/ | Procedure | Cardiology | | | | 2019 | visit | | | | +--------+ + + + + | 05/01/ | Office | Cardiology | Silvia | | | 2019 | Visit | | [address] | | | | | | [place], | | | | | | [place] [address] | | | | | | [phone] | | | | | | | | +--------+ + + + + | 05/21/ | Implant | Cardiology | Daljit Singletary, | Remote Device | | 2020 | Monitor | | [address] [place] | Interrogation | | | | | [facility], | (Primary Dx); | | | | | [place] [address] | Pacemaker; | | | | | [phone] | Sinoatrial node | | | | [...] EXTERNAL | | | | performed at [facility];[address] | | LAB | | | | [address];[place], [place] | | | | | | [address] | | | | + + + [...] | | | | | | ACUTE [place] Testing | | | | | | performed at [facility];[address] | | | | | | [address] [facility];[place], [place] | | | | | | [address] | | | | + + + [...] | | | | | [place] [address] | | | | + + + + + + | Red Blood | 4.68Comment: Testing | 4.20 - 5.70 | EXTERNAL | | | Cells | performed at [facility], [address] | M/uL | LAB | | | Counted | [address], | | | | | | [place] [address] | | | | + + + + + + | Hemoglobin | 15.3Comment: Testing | 13.2 - 17.0 | EXTERNAL | | | | performed at [facility], [address] | g/dL | LAB | | | | [address], | | | | | | [place] [address] | | | | + + + + + + | Hematocrit, | 44.2Comment: Testing | 39.0 - 50.0 % | EXTERNAL | | | POC | performed at [facility], [address] | | LAB | | | | [address], | | | | | | [place] [address] | | | | + + + + + + | MCV | 94.5Comment: Testing | 80.0 - 100.0 fl | EXTERNAL | | | | performed at [facility], [address] | | LAB | | | | [address], | | | | | | [place] [address] | | | | + + + + + + | MCH | 32.6Comment: Testing | 27.0 - 34.0 pg | EXTERNAL | | | | performed at [facility], [address] | | LAB | | | | [address], | | | | | | [place] [address] | | | | + + + + + + | MCHC | 34.5Comment: Testing | 32.0 - 35.5 | EXTERNAL | | | | performed at [facility], [address] | g/dL | LAB | | | | [address], | | | | | | [place] [address] | | | | + + + + + + | RDW-CV | 45.5Comment: Testing | 37 - 53 fl | EXTERNAL | | | | performed at [facility], [address] | | LAB | | | | [address], | | | | | | [place] [address] | | | | + + + + + + | Platelet | 156Comment: Testing | 150 - 400 K/uL | EXTERNAL | | | Count | performed at [facility], [address] | | LAB | | | Plasma | [address], | | | | | | [place] [address] | | | | + + + + + + | MPV | 8.8Comment: Testing | fl | EXTERNAL | | | | performed at [facility], [address] | | LAB | | | | [address], | | | | | | [place] [address] | | | | + + + + + + | Differentia | AUTOMATEDComment: | | EXTERNAL | | | l Type | Testing performed at | | LAB | | | | [facility], [address] | | | | | | [place] | | | | | | [address] | | | | + + + + + + | % Segmented | 57.7Comment: Testing | % | EXTERNAL | | | | performed at [facility], [address] | | LAB | | | Neutrophils | [address], | | | | | | [place] [address] | | | | + + + + + + | % | 31.8Comment: Testing | % | EXTERNAL | | | Lymphocytes | performed at [facility], [address] | | LAB | | | | [address], | | | | | | [place] [address] | | | | + + + + + + | % Monocytes | 9.2Comment: Testing | % | EXTERNAL | | | | performed at [facility], [address] | | LAB | | | | [address], | | | | | | [place] [address] | | | | + + + + + + | % | 0.9Comment: Testing | % | EXTERNAL | | | Eosinophils | performed at [facility], [address] | | LAB | | | | [address], | | | | | | [place] [address] | | | | + + + + + + | % Basophils | 0.4Comment: Testing | % | EXTERNAL | | | | performed at [facility], [address] | | LAB | | | [address], | | | | | | [place] [address] | | | | + + + + + + | Absolute | 3.9Comment: Testing | 1.9 - 7.4 K/uL | EXTERNAL | | | Segmented | performed at [facility], [address] | | LAB | | | Neutrophils | [address], | | | | | | [place] [address] | | | | + + + + + + | Absolute | 2.1Comment: Testing | 1.0 - 3.9 K/uL | EXTERNAL | | | Lymphocytes | performed at [facility], [address] | | LAB | | | [address], | | | | | | [place] [address] | | | | + + + + + + | Absolute | 0.6Comment: Testing | 0 - 0.8 K/uL | EXTERNAL | | | Monocytes | performed at [facility], [address] | | LAB | | | | [address], | | | | | | [place] [address] | | | | + + + + + + | Absolute | 0.1Comment: Testing | 0 - 0.5 K/uL | EXTERNAL | | | Eosinophils | performed at [facility], [address] | | LAB | | | [address], | | | | | | [place] [address] | | | | + + + + + + | Absolute | 0.0Comment: Testing | 0 - 0.1 K/uL | EXTERNAL | | | Basophils | performed at [facility], [address] | | LAB | | | | [address], | | | | | | [place] [address] | | | | + + + [...] EXTERNAL | | | | performed at [facility], [address] | | LAB | | | | [address], | | | | | | [place] [address] | | | | + + + [...] EXTERNAL | | | | performed at [facility], [address] | | LAB | | | | [address], | | | | | | [place] [address] | | | | + + + [...] EXTERNAL | | | | performed at [facility];[address] | | LAB | | | | [address];[place] | | | | | | [address] | | | | + + + [...] | | | | | [place] [address] | | | | + + + + + + | Triglycerid | 37Comment: Testing | mg/dL | EXTERNAL | | | es | performed at [facility], [address] | | LAB | | | | [address], | | | | | | [place] [address] | | | | + + + + + + | HDL | 35 (L)Comment: Testing | mg/dL | EXTERNAL | | | | performed at [facility], [address] | | LAB | | | | [address], | | | | | | [place] [address] | | | | + + + + + + | LDL, | 67Comment: Testing | mg/dL | EXTERNAL | | | Calculated | performed at [facility], [address] | | LAB | | | | [address], | | | | | | [place] [address] | | | | + + + [...] | | | | | [place] [address] | | | | + + + + + + | K | 3.4 (L)Comment: Testing | 3.5 - 4.9 | EXTERNAL | | | | performed at [facility], [address] | mmol/L | LAB | | | | [address], | | | | | | [place] [address] | | | | + + + + + + | Cl | 108Comment: Testing | 99 - 109 mmol/L | EXTERNAL | | | | performed at [facility], [address] | | LAB | | | | [address], | | | | | | [place] [address] | | | | + + + + + + | CO2 | 21 (L)Comment: Testing | 23 - 32 mmol/L | EXTERNAL | | | | performed at [facility], [address] | | LAB | | | | [address], | | | | | | [place] [address] | | | | + + + + + + | Anion Gap | 12Comment: Testing | 5 - 20 mmol/L | EXTERNAL | | | | performed at [facility], [address] | | LAB | | | | [address], | | | | | | [place] [address] | | | | + + + + + + | Glucose, | 107 (H)Comment: Testing | 65 - 99 mg/dL | EXTERNAL | | | Fasting | performed at [facility], [address] | | LAB | | | | [address], | | | | | | [place] [address] | | | | + + + + + + | BUN | 15Comment: Testing | 8 - 25 mg/dL | EXTERNAL | | | | performed at [facility], [address] | | LAB | | | | [address], | | | | | | [place] [address] | | | | + + + + + + | Creatinine | 0.74Comment: Testing | 0.70 - 1.30 | EXTERNAL | | | | performed at [facility], [address] | mg/dL | LAB | | | | [address], | | | | | | [place] [address] | | | | + + + + + + | BUN/Creatin | 20Comment: Testing | | EXTERNAL | | | ine Ratio | performed at [facility], [address] | | LAB | | | | [address], | | | | | | [place] [address] | | | | + + + + + + | Calcium | 8.9Comment: Testing | 8.5 - 10.2 | EXTERNAL | | | | performed at [facility], [address] | mg/dL | LAB | | | | [address], | | | | | | [place] [address] | | | | + + + + + + | Protein, | 6.1 (L)Comment: Testing | 6.3 - 8.2 g/dL | EXTERNAL | | | Total | performed at [facility], [address] | | LAB | | | | [address], | | | | | | [place] [address] | | | | + + + + + + | Albumin | 4.0Comment: Testing | 3.6 - 5.0 g/dL | EXTERNAL | | | | performed at [facility], [address] | | LAB | | | | [address], | | | | | | [place] [address] | | | | + + + + + + | Globulin | 2.1Comment: Testing | 1.3 - 4.9 g/dL | EXTERNAL | | | | performed at [facility], [address] | | LAB | | | | [address], | | | | | | [place] [address] | | | | + + + + + + | A/G Ratio | 1.9Comment: Testing | 1.0 - 2.4 | EXTERNAL | | | | performed at [facility], [address] | | LAB | | | | [address], | | | | | | [place] [address] | | | | + + + + + + | Bilirubin | 1.4Comment: Testing | 0.1 - 1.5 mg/dL | EXTERNAL | | | Total | performed at [facility], [address] | | LAB | | | | [address], | | | | | | [place], [place] [address] | | | | + + + + + + | ALP, | 46Comment: Testing | 35 - 115 U/L | EXTERNAL | | | External | performed at [facility], [address] | | LAB | | | | [address], | | | | | | [place] [address] | | | | + + + + + + | AST | 31Comment: Testing | 10 - 45 U/L | EXTERNAL | | | | performed at [facility], [address] | | LAB | | | | [address], | | | | | | [place] [address] | | | | + + + + + + | ALT | 27Comment: Testing | 10 - 65 U/L | EXTERNAL | | | | performed at [facility], [address] | | LAB | | | | [address], | | | | | | [place] [address] | | | | + + + [...] | | | | | | at [facility], [address] | | | | | | [address], | | | | | | [place] [address] | | | | + + + [...] + + | Historically converted procedure from [facility] environment | EXTERNAL LAB | + [...] EXTERNAL | | | | performed at [facility];[address] | | LAB | | | | [address];[place], [place] | | | | | | [address] | | | | + + + [...] | | | | | | ACUTE [place] Testing | | | | | | performed at [facility];[address] | | | | | | [facility];[place], [place] | | | | | | [address] | | | | + + + [...] EXTERNAL | | | | performed at [facility];[address] | | LAB | | | [address];[place] | | | | | | [address] | | | | + + + [...] were | | | performed using the Adreima 3-D software and sent to PACS. Oral | | | Contrast: None IV contrast: 100 mL IsoVue 370 COMPARISON: None. | | | FINDINGS: CHEST: The general education professor view shows a pacemaker via left | [...] Conversion - 07/07/2019 10:30 PM PDT [facility] | | CONTRAST02/27/2014 [...] reconstructions were performed | | using the Adreima 3-D software and sent to PACS. Oral Contrast: NoneIV contrast: 100 | | mL IsoVue 370 COMPARISON:None. FINDINGS: CHEST: The general education professor view shows a pacemaker via | | [...] EXTERNAL | | | | performed at [facility];[address] | | LAB | | | | [address];[place] | | | | | | [address] | | | | + + + + + -+ | Red Blood | 5.19Comment: Testing | 4.20 - 5.70 | EXTERNAL | | | Cells | performed at [facility];[address] | M/uL | LAB | | | Counted | [address];[place] | | | | | | [address] | | | | + + + + + -+ | Hemoglobin | 16.8Comment: Testing | 13.2 - 17.0 | EXTERNAL | | | | performed at [facility];[address] | g/dL | LAB | | | | [address];[place] | | | | | | [address] | | | | + + + + + -+ | Hematocrit, | 49.5Comment: Testing | 39.0 - 50.0 % | EXTERNAL | | | POC | performed at [facility];[address] | | LAB | | | | [address];[place] | | | | | | [address] | | | | + + + + + -+ | MCV | 95.4Comment: Testing | 80.0 - 100.0 fl | EXTERNAL | | | | performed at [facility];[address] | | LAB | | | | [address];[place] | | | | | | [address] | | | | + + + + + -+ | MCH | 32.4Comment: Testing | 27.0 - 34.0 pg | EXTERNAL | | | | performed at [facility];[address] | | LAB | | | | [address];[place] | | | | | | [address] | | | | + + + + + -+ | MCHC | 34.0Comment: Testing | 32.0 - 35.5 | EXTERNAL | | | | performed at [facility];[address] | g/dL | LAB | | | | [address];[place] | | | | | | [address] | | | | + + + + + -+ | RDW-CV | 46.8Comment: Testing | 37 - 53 fl | EXTERNAL | | | | performed at [facility];[address] | | LAB | | | | [address];[place] | | | | | | [address] | | | | + + + + + -+ | Platelet | 179Comment: Testing | 150 - 400 K/uL | EXTERNAL | | | Count | performed at [facility];[address] | | LAB | | | Plasma | [address];[place] | | | | | | [address] | | | | + + + + + -+ | MPV | 8.6Comment: Testing | fl | EXTERNAL | | | | performed at [facility];[address] | | LAB | | | | [address];[place] | | | | | | [address] | | | | + + + + + -+ | Differentia | AUTOMATEDComment: | | EXTERNAL | | | l Type | Testing performed at | | LAB | | | | [facility];[address];[place] [address] | | | | + + + + + -+ | % Segmented | 62.4Comment: Testing | % | EXTERNAL | | | | performed at [facility];[address] | | LAB | | | Neutrophils | [address];[place] | | | | | | [address] | | | | + + + + + -+ | % | 26.3Comment: Testing | % | EXTERNAL | | | Lymphocytes | performed at [facility];[address] | | LAB | | | | [address];[place] | | | | | | [address] | | | | + + + + + -+ | % Monocytes | 10.3Comment: Testing | % | EXTERNAL | | | | performed at [facility];[address] | | LAB | | | | [address];[place] | | | | | | [address] | | | | + + + + + -+ | % | 0.5Comment: Testing | % | EXTERNAL | | | Eosinophils | performed at [facility];[address] | | LAB | | | | [address];[place] | | | | | | [address] | | | | + + + + + -+ | % Basophils | 0.5Comment: Testing | % | EXTERNAL | | | | performed at [facility];[address] | | LAB | | | | [address];[place] | | | | | | [address] | | | | + + + + + -+ | Absolute | 6.3Comment: Testing | 1.9 - 7.4 K/uL | EXTERNAL | | | Segmented | performed at [facility];[address] | | LAB | | | Neutrophils | [address];[place] | | | | | | [address] | | | | + + + + + -+ | Absolute | 2.7Comment: Testing | 1.0 - 3.9 K/uL | EXTERNAL | | | Lymphocytes | performed at [facility];[address] | | LAB | | | | [address];[place] | | | | | | [address] | | | | + + + + + -+ | Absolute | 1.0 (H)Comment: Testing | 0 - 0.8 K/uL | EXTERNAL | | | Monocytes | performed at [facility];[address] | | LAB | | | | [address];[place] | | | | | | [address] | | | | + + + + + -+ | Absolute | 0.0Comment: Testing | 0 - 0.5 K/uL | EXTERNAL | | | Eosinophils | performed at [facility];[address] | | LAB | | | | [address];[place] | | | | | | [address] | | | | + + + + + -+ | Absolute | 0.1Comment: Testing | 0 - 0.1 K/uL | EXTERNAL | | | Basophils | performed at [facility];[address] | | LAB | | | | [address];[place] | | | | | | [address] | | | | + + + + + -+ | Na | 139Comment: Testing | 135 - 143 | EXTERNAL | | | | performed at [facility];[address] | mmol/L | LAB | | | | [address];[place] | | | | | | [address] | | | | + + + + + -+ | K | 3.4 (L)Comment: Testing | 3.5 - 4.9 | EXTERNAL | | | | performed at [facility];[address] | mmol/L | LAB | | | | [address];[place] | | | | | | [address] | | | | + + + + + -+ | Cl | 108Comment: Testing | 99 - 109 mmol/L | EXTERNAL | | | | performed at [facility];[address] | | LAB | | | | [address];[place] | | | | | | [address] | | | | + + + + + -+ | CO2 | 21 (L)Comment: Testing | 23 - 32 mmol/L | EXTERNAL | | | | performed at [facility];[address] | | LAB | | | | [address];[place] | | | | | | [address] | | | | + + + + + -+ | Anion Gap | 14Comment: Testing | 5 - 20 mmol/L | EXTERNAL | | | | performed at [facility];[address] | | LAB | | | | [address];[place] | | | | | | [address] | | | | + + + + + -+ | Glucose, | 124 (H)Comment: Testing | 65 - 99 mg/dL | EXTERNAL | | | Fasting | performed at [facility];[address] | | LAB | | | | [address];[place] | | | | | | [address] | | | | + + + + + -+ | BUN | 20Comment: Testing | 8 - 25 mg/dL | EXTERNAL | | | | performed at [facility];[address] | | LAB | | | | [address];[place] | | | | | | [address] | | | | + + + + + -+ | Creatinine | 0.97Comment: Testing | 0.70 - 1.30 | EXTERNAL | | | | performed at [facility];[address] | mg/dL | LAB | | | | [address];[place] | | | | | | [address] | | | | + + + + + -+ | BUN/Creatin | 21Comment: Testing | | EXTERNAL | | | ine Ratio | performed at [facility];[address] | | LAB | | | | [address];[place] | | | | | | [address] | | | | + + + + + -+ | Calcium | 8.7Comment: Testing | 8.5 - 10.2 | EXTERNAL | | | | performed at [facility];[address] | mg/dL | LAB | | | | [address];[place] | | | | | | [address] | | | | + + + + + -+ | Protein, | 7.6Comment: Testing | 6.3 - 8.2 g/dL | EXTERNAL | | | Total | performed at [facility];[address] | | LAB | | | | [address];[place] | | | | | | [address] | | | | + + + + + -+ | Albumin | 4.2Comment: Testing | 3.6 - 5.0 g/dL | EXTERNAL | | | | performed at [facility];[address] | | LAB | | | | [address];[place] | | | | | | [address] | | | | + + + + + -+ | Globulin | 3.4Comment: Testing | 1.3 - 4.9 g/dL | EXTERNAL | | | | performed at [facility];[address] | | LAB | | | | [address];[place] | | | | | | [address] | | | | + + + + + -+ | A/G Ratio | 1.2Comment: Testing | 1.0 - 2.4 | EXTERNAL | | | | performed at [facility];[address] | | LAB | | | | [address];[place] | | | | | | [address] | | | | + + + + + -+ | Bilirubin | 1.1Comment: Testing | 0.1 - 1.5 mg/dL | EXTERNAL | | | Total | performed at [facility];[address] | | LAB | | | | [address];[place] | | | | | | [address] | | | | + + + + + -+ | ALP, | 77Comment: Testing | 35 - 115 U/L | EXTERNAL | | | External | performed at [facility] [place];[address] | | LAB | | | | [address];[place] | | | | | | [id number] | | | | + + + + + -+ | AST | 35Comment: Testing | 10 - 45 U/L | EXTERNAL | | | | performed at [facility];[address] | | LAB | | | | [address];[place] | | | | | | [address] | | | | + + + + + -+ | ALT | 43Comment: Testing | 10 - 65 U/L | EXTERNAL | | | | performed at [facility];[address] | | LAB | | | | [address];[place] | | | | | | [address] | | | | + + + [...] | | | | | | at [facility] [place];[address] | | | | | | [address];[place] [id number] | | | | + + + + + -+ | CK, Total | 510 (H)Comment: Testing | 55 - 400 U/L | EXTERNAL | | | | performed at [facility];[address] | | LAB | | | | [address];[place] | | | | | | [address] | | | | + + + [...] | | | | | performed at [facility];[address] | | | | | | [address];[place] | | | | | | [address] | | | | + + + + + -+ | aPTT, | 24Comment: Testing | 23 - 32 seconds | EXTERNAL | | | Patient | performed at [facility];[address] | | LAB | | | | [address];[place] | | | | | | [address] | | | | + + + + + -+ | CK-MB | 9.3 (H)Comment: Testing | 0.5 - 3.6 ng/mL | EXTERNAL | | | | performed at [facility];[address] | | LAB | | | | [address] [facility];[place], [place] | | | | | | [address] | | | | + + + [...] EXTERNAL | | | | performed at [facility];888 | uIU/mL | LAB | | | | [address];[place] | | | | | | [address] | | | | + + + [...] EXTERNAL | | | | performed at [facility];[address] | | LAB | | | | [address];[place], [place] | | | | | | [address] | | | | + + + [...] (500), | | | | | | newspaper photo editor TERESE NINA (2) | | | [...]
--- OUTSIDE RECORDS SUMMARY | ~2020-04-15 | XMS | Encounter Summary ---
Demographics + + + | Address | [address] | | | [place] [address] | + + + | Home Phone [...] Providers + +------+ + | Care Manufacturing Design Engineer Name | Role | Phone [...] W | reprogramming/check | | | | [place], | [address] [place] | DO [place] DELETE | | | | [place] [address] | [place] [address] | (Primary Dx); | | | | [phone] | [phone] | Pacemaker - | | | | [...] | | | | | | [place] [address] | | | | | | [phone] | | | | | | | | +--------+ + + + + | 05/01/ | Procedure | Cardiology | | | | 2019 | visit | | | | +--------+ + + + + | 05/01/ | Office | Cardiology | Silvia, | | | 2019 | Visit | | [address] | | | | | | [place], | | | | | | [place] [address] | | | | | | [phone] | | | | | | | | +--------+ + + + + | 05/21/ | Implant | Cardiology | Daljit Singletary, | Remote Device | | 2019 | Monitor | | [facility] | Interrogation | | | | | [place], | (Primary Dx); | | | | | [place] [address] | Pacemaker; | | | | | [phone] | Sinoatrial node | | | | [...] Avina | PACE[facility] | | MD Heide 08/24/2018 15:10 PATIENT [...] | |SJuan Diego Jaeger MD | | | | | [...]
--- OUTSIDE RECORDS SUMMARY | ~2020-04-15 | XMS | Encounter Summary ---
Demographics + + + | Address | [address] | | | [place] [address] | + + + | Home Phone [...] Providers + +------+ + | Care Stocking Inspector Name | Role | Phone | [...] visit | CARDIOLOGY [address] | [address] [place] | reprogramming/check | | | | [place], | [place], | DO [place]LETE | | | | [place] [address] | [place] [address] | (Primary Dx); | | | | [phone] | [phone] | Sinoatrial node | | | | | | dysfunction ([facility]) | | | | [...] | | | | | | [place] [address] | | | | | | [phone] | | | | | | | | +--------+ + + + + | 05/01/ | Procedure | Cardiology | | | | 2019 | visit | | | | +--------+ + + + + | 05/01/ | Office | Cardiology | Silvia | | | 2019 | Visit | | [address]ISA [address] | | | | | | [place], | | | | | | [place] [address] | | | | | | [phone] | | | | | | | | +--------+ + + + + | 05/21/ | Implant | Cardiology | Daljit Singletary, | Remote Device | | 2019 | Monitor | | [address] [place] | Interrogation | | | | | [place], | (Primary Dx); | | | | | [place] [address] | Pacemaker; | | | | | [phone] | Sinoatrial node | | | | [...]
--- OUTSIDE RECORDS SUMMARY | ~2020-04-15 | XMS | Encounter Summary ---
Demographics + + + | Address | [address] | | | [place] [address] | + + + | Home Phone [...] Team Providers + +------+ + | Care Stoner Out Name | Role | Phone | + +------+ + PCP | Unavailable | + +------+ + Encounter Details +--------+ + + + + | Date | Type | Department | Care Team | Description | +--------+ + + + + | 11/12/ | Hospital | [facility] | | | | 1994 | Encounter | MED CTR GENERIC OP | | | | | | CONV DEPT [address] | | | | | | [place], | | | | | | [place] [address] | | | | | | [phone] | | | +--------+ + + + [...] | | | | | | [place] [address] | | | | | | [phone] | | | | | | | | +--------+ + + + + | 05/01/ | Procedure | Cardiology | | | | 2019 | visit | | | | +--------+ + + + + | 05/01/ | Office | Cardiology | Silvia, | | | 2019 | Visit | | [address] | | | | | | [place], | | | | | | [place] [address] | | | | | | [phone] | | | | | | | | +--------+ + + + + | 05/21/ | Implant | Cardiology | Daljit Singletary, | Remote Device | 2019 | Monitor | | [place] [address] [place] | Interrogation | | | | | [place], | (Primary Dx); | | | | | [place] [address] | Pacemaker; | | | | | [phone] | Sinoatrial node | | | | | | dysfunction (HCC) | | | | | | with symptomatic | | | | | | bradycardia | +--------+ + + + + documented as of this encounter Visit Diagnoses Not on filedocumented in this encounter"
--- OUTSIDE RECORDS SUMMARY | ~2020-04-15 | XMS | Encounter Summary ---
Demographics + + + | Address | [address] | | | [place] [address] | + + + | Home Phone [...] Providers + +------+ + | Care Medical Representative Name | Role | Phone | [...] type ER | [address] | [address] | | | | | FUP | ST [place] | [place], | | | | | Procedures | [place], [place] | [place] [address] | | | | | FUP - SUW & | [address] | Phone: | | | | | EVM PT, LAST | Phone: | [phone] | | | | | SEEN | [phone] | Fax: | | | | | 08-24-18 | Fax: | [phone] | | | | | | [phone] | | +--------+ + + + + [...] | | | | CENTER [address] | [address] [place] | (Primary Dx) | | | | [place], [place] | [place] [address] | | | | | [address] | [phone] | | | | | [phone] | | | +--------+ + + + [...] through Care Everywhere.Chest Pain, Unc ertain Cause (Georgian)documented in this encounter Medications at Time of [...] + + + +---------+ + + | [place]-3 Fatty | CAPS, one capsule by [...] | | | | | | [place] [address] | | | | | | [phone] | | | | | | | | +--------+ + + + + | 05/01/ | Procedure | Cardiology | | | | 2019 | visit | | | | +--------+ + + + + | 05/01/ | Office | Cardiology | Silvia, | | | 2019 | Visit | | PARISA Vernon [address] | | | | | | [place], | | | | | | [place] [address] | | | | | | [phone] | | | | | | | | +--------+ + + + + | 05/21/ | Implant | Cardiology | Daljit Singletary, | Remote Device | 2019 | Monitor | | [address] [place] | Interrogation | | | | | [place], | (Primary Dx); | | | | | [place] [address] | Pacemaker; | | | | | [phone] | Sinoatrial node | | | | [...] | | | | ANGELA MARADIAGA MD ([id number]) | | | | | | on [...] [address] | [place] | [phone] | | [facility] | | [address] | | | - LABORATORY | | [...] [address] | [place] | [phone] | | [facility] | | [address] | | | - LABORATORY | | [...] - 1.030 | [facility] | | | [place], | | | [facility] | | [...] [address] | [place] | [phone] | | [facility] | | [address] | | | - LABORATORY | | [...] [address] | [place] | [phone] | | [facility] | | [address] | | | - LABORATORY | | [...] [address] | [place] | [phone] | | [facility] | | [address] | | | - LABORATORY | | [...] [address] | [place] | [phone] | | [facility] | | [address] | | | - LABORATORY | | [...] | 0.96 | 0.60 - 1.30 | [facility] | | | | | mg/dL | [...] mL/min/1.73m2 | [facility] | | | UKRAINIAN | RATE,ESTIMATED | | MEDICAL | | | | mL/min/1.54v0Ivbs than | | CENTER - | | [...] [address] | [place] | [phone] | | [facility] | | [address] | | | - LABORATORY | | [...] + | [address] | [address] | [place] | [phone] | | [facility] | | [address] | | | - LABORATORY | | [...] | | | | HIREN WINKLER, ANGELA ([id number]) | | | | | | on [...]
--- OUTSIDE RECORDS SUMMARY | ~2020-04-15 | XMS | Encounter Summary ---
Demographics + + + | Address | [address] | | | [place] [address] | + + + | Home Phone [...] Providers + +------+ + | Care Metal Tile Setter Name | Role | Phone | [...] | 01/05/ | Telephone | [facility] | Emmanuel Daniel MD | Other | | 2019 | | GASTROENTEROLOGY | [address], [place] | | | | | [address] | [address] [place], [place] | | | | | [address] [place], [place] | [address] | | | | | [address] | | | | | | [phone] | | | +--------+ + + + [...] | | | | | | [place] [address] | | | | | | [phone] | | | | | | | | +--------+ + + + + | 05/01/ | Procedure | Cardiology | | | | 2019 | visit | | | | +--------+ + + + + | 05/01/ | Office | Cardiology | Silvia, | | | 2019 | Visit | | [address] | | | | | | [place], | | | | | | [place] [address] | | | | | | [phone] | | | | | | | | +--------+ + + + + | 05/21/ | Implant | Cardiology | Daljit Singletary, | Remote Device | | 2019 | Monitor | | [facility] | Interrogation | | | | | [address] [place], | (Primary Dx); | | | | | [place] [address] | Pacemaker; | | | | | [phone] | Sinoatrial node | | | | | | dysfunction (HCC) | | | | | | with symptomatic | | | | | | bradycardia | +--------+ + + + + documented as of this encounter Visit Diagnoses Not on filedocumented in this encounter"
--- OUTSIDE RECORDS SUMMARY | ~2020-04-15 | XMS | Encounter Summary ---
Demographics + + + | Address | [address] | | | [place] [address] | + + + | Home Phone [...] Team Providers + +------+ + | Care Nail Artist Name | Role | Phone | [...] 2012 | | CARDIOLOGY [address] | LENS COATER [address] | | | | | [place], | [place], [place] | | | | | [place] [address] | [address] | | | | | [phone] | | | +--------+ + + + [...] W | | | | | | [place], | | | | | | [place] [address] | | | | | | [phone] | | | | | | | | +--------+ + + + + | 05/01/ | Procedure | Cardiology | | | | 2019 | visit | | | | +--------+ + + + + | 05/01/ | Office | Cardiology | Silvia, | | | 2019 | Visit | | [address]IR[address] | | | | | | [place], | | | | | | [place] [address] | | | | | | [phone] | | | | | | | | +--------+ + + + + | 05/21/ | Implant | Cardiology | Daljit Singletary, | Remote Device | 2019 | Monitor | | [address] | Interrogation | | | | | [address] [place], | (Primary Dx); | | | | | [place] [address] | Pacemaker; | | | | | [phone] | Sinoatrial node | | | | | | dysfunction (HCC) | | | | | | with symptomatic | | | | | | bradycardia | +--------+ + + + + documented as of this encounter Visit Diagnoses Not on filedocumented in this encounter"
--- OUTSIDE RECORDS SUMMARY | ~2020-04-15 | XMS | Encounter Summary ---
Demographics + + + | Address | [address] | | | [place] [address] | + + + | Home Phone [...] Team Providers + +------+ + | Care Energy Director Name | Role | Phone | [...] CTR CASE | RN | (referral from [facility]) | | | | MANAGEMENT [address] | | | | | | [place], | | | | | | [place] [address] | | | | | | [phone] | | | +--------+ + + + [...] | | | | | | [place] [address] | | | | | | [phone] | | | | | | | | +--------+ + + + + | 05/01/ | Procedure | Cardiology | | | | 2019 | visit | | | | +--------+ + + + + | 05/01/ | Office | Cardiology | [place], | | | 2019 | Visit | | PARISA Vernon [address] | | | | | | [place], | | | | | | [place] [address] | | | | | | [phone] | | | | | | | | +--------+ + + + + | 05/21/ | Implant | Cardiology | Daljit Singletary, | Remote Device | 2019 | Monitor | | [facility] | Interrogation | | | | | [place], | (Primary Dx); | | | | | [place] [address] | Pacemaker; | | | | | [phone] | Sinoatrial node | | | | | | dysfunction (HCC) | | | | | | with symptomatic | | | | | | bradycardia | +--------+ + + + + documented as of this encounter Visit Diagnoses Not on filedocumented in this encounter"
--- OUTSIDE RECORDS SUMMARY | ~2020-04-15 | XMS | Encounter Summary ---
Demographics + + + | Address | [address] | | | [place] [address] | + + + | Home Phone [...] Providers + +------+ + | Care Sales Stock Associate Name | Role | Phone | + +------+ + PCP | Unavailable | + +------+ + Encounter Details +--------+ + + + + | Date | Type | Department | Care Team | Description | +--------+ + + + + | 02/21/ | [facility] | [facility] | Geri Angel, | | | 2011 | Encounter | MED CTR XRAY [address] | WIRE ANNEALER [address] | | | | | [place] | [address] [place] | | | | | [place] [address] | [address] | | | | | [phone] | | | +--------+ + + + [...] W | | | | | | [place], | | | | | | [place] [address] | | | | | | [phone] | | | | | | | | +--------+ + + + + | 05/01/ | Procedure | Cardiology | | | | 2019 | visit | | | | +--------+ + + + + | 05/01/ | Office | Cardiology | [place], | | | 2019 | Visit | | PARISA Vernon W | | | | | | [place], | | | | | | [place] [address] | | | | | | [phone] | | | | | | | | +--------+ + + + + | 05/21/ | Implant | Cardiology | Daljit Singletary, | Remote Device | | 2019 | Monitor | | [address] [place] [address] | Interrogation | | | | | [place], | (Primary Dx); | | | | | [place] [address] | Pacemaker; | | | | | [phone] | Sinoatrial node | | | | | | dysfunction (HCC) | | | | | | with symptomatic | | | | | | bradycardia | +--------+ + + + + documented as of this encounter Visit Diagnoses Not on filedocumented in this encounter"
--- OUTSIDE RECORDS SUMMARY | ~2020-04-15 | XMS | Encounter Summary ---
Demographics + + + | Address | [address] | | | [place] [address] | + + + | Home Phone [...] Providers + +------+ + | Care Special Forces Medical Sergeant Name | Role | Phone | + +------+ + PCP | Unavailable | + +------+ + Encounter Details +--------+ + + + + | Date | Type | Department | Care Team | Description | +--------+ + + + + | 09/13/ | [facility] | [facility] | Jonathan, | | | 2009 | Encounter | MED CTR EMERGENCY | Martell Cr MD [address] | | | | | CENTER [address] [place] | [place] | | | | | [place] | [place] [address] | | | | | [address] | [phone] | | | | | [phone] | | | +--------+ + + + [...] W | | | | | | [place], | | | | | | [place] [address] | | | | | | [phone] | | | | | | | | +--------+ + + + + | 05/01/ | Procedure | Cardiology | | | | 2019 | visit | | | | +--------+ + + + + | 05/01/ | Office | Cardiology | [place] | | | 2019 | Visit | | PARISA Vernon [address] | | | | | | [place], | | | | | | [place] [address] | | | | | | [phone] | | | | | | | | +--------+ + + + + | 05/21/ | Implant | Cardiology | Daljit Singletary, | Remote Device | 2019 | Monitor | | MD [place] | Interrogation | | | | | [place], | (Primary Dx); | | | | | [place] [address] | Pacemaker; | | | | | [phone] | Sinoatrial node | | | | | | dysfunction (HCC) | | | | | | with symptomatic | | | | | | bradycardia | +--------+ + + + + documented as of this encounter Visit Diagnoses Not on filedocumented in this encounter"
--- OUTSIDE RECORDS SUMMARY | ~2020-04-15 | XMS | Encounter Summary ---
Demographics + + + | Address | [address] | | | [place] [address] | + + + | Home Phone [...] Providers + +------+ + | Care Medical Recruiter Name | Role | Phone | + +------+ + | Michael Amanda DO | PCP | | + +------+ + Encounter Details +--------+ + + + + | Date | Type | Department | Care Team | Description | +--------+ + + + + | 01/31/ | Hospital | [facility] | Adrian Gutierrez MD | | | 2012 | Encounter | HEART MED CTR | [address] | | | | | EMERGENCY CENTER | [place], [place] | | | | | [address] | [address] | | | | | [place] | [phone] | | | | | [address] | | | | | | [phone] | | | +--------+ + + + [...] + + + +---------+ + + | [place]-3 Fatty | CAPS, one capsule by | [...] | | | | | | [place] [address] | | | | | | [phone] | | | | | | | [...] | | | | | | [place] [address] | | | | | | [phone] | | | | | | | | +--------+ + + + + | 05/21/ | Implant | Cardiology | Daljit Singletary, | Remote Device | 2019 | Monitor | | MD [address] [place] | Interrogation | | | | | [place], | (Primary Dx); | | | | | [place] [address] | Pacemaker; | | | | | [phone] | Sinoatrial node | | | | [...] + + + | Exam Performed Location: [facility] TWO-VIEW | MISCELANIOUS | | CHEST CLINICAL [...] | an acute cardiopulmonary process. S: SQ ([id number]) Signed by: | | | JAYNE SPEAR MD | | + + + + + | Procedure Note | + + | Kevin, Rad Conversion - 09/13/2013 10:25 PM PDT Exam Performed [facility] CHESTCLINICAL INFORMATION:Shortness of | | breath.COMPARISON:None.FINDINGS:There is a left subclavian dual lead cardiac pacer. The | | heart sizeand mediastinal contours are normal. The pulmonary vasculature isnormal. No | | focal airspace opacities, pleural effusions, orpneumothorax. Cervical fusion hardware | | is noted. No acute osseousfindings.IMPRESSION:No evidence of an acute cardiopulmonary | | process.S: SQ ([id number]) Signed by: JAYNE SPEAR MD | |COMPARISON: [...] | | | | | |S: SQ ([id number]) Signed by: JAYNE SPEAR MD | + + + +---------+ + + | Performing | Address | City/State/Zipcode | Phone Number | | Organization | | | | + +---------+ + + | MISCELLANEOUS LAB | | | [phone] | + +---------+ + + | MISCELANIOUS LAB | | | [phone] | + +---------+ + + Troponin I [...] + + | [facility] | [address] | [place] [address] | | | [facility] | [...] + + | [facility] | [address] | [place] [address] | | | [facility] | [...] + + | [facility] | [address] | [place] [address] | | | [facility] | [...] + + | [facility] | [address] | [place] [address] | | | [facility] | | | | | LABORATORY | | | | + + + + + | [facility] | | | | | [facility] | | | | | [...] + + | Glucose | 154 (H)Comment: Ethiopian | 65 - 99 mg/dL | [facility] [...] + + | [facility] | [address] | [place] [address] | | | [facility] | | | | | LABORATORY [...]
--- OUTSIDE RECORDS SUMMARY | ~2020-04-15 | XMS | Encounter Summary ---
Demographics + + + | Address | [address] | | | [place] [address] | + + + | Home Phone [...] Team Providers + +------+ + | Care Factorer Name | Role | Phone | + +------+ + PCP | Unavailable | + +------+ + Encounter Details +--------+ + + + + | Date | Type | Department | Care Team | Description | +--------+ + + + + | 09/13/ | [facility] | [facility] | Jonathan, | | | 2009 | Encounter | MED CTR EMERGENCY | Martell Cr MD [address] | | | | | CENTER [address] [place] | [place] | | | | | [place] | [place] [address] | | | | | [address] | [phone] | | | | | [phone] | | | +--------+ + + + [...] W | | | | | | [place], | | | | | | [place] [address] | | | | | | [phone] | | | | | | | | +--------+ + + + + | 05/01/ | Procedure | Cardiology | | | | 2019 | visit | | | | +--------+ + + + + | 05/01/ | Office | Cardiology | [place]via | | | 2019 | Visit | | PARISA Vernon [address] | | | | | | [place], | | | | | | [place] [address] | | | | | | [phone] | | | | | | | | +--------+ + + + + | 05/21/ | Implant | Cardiology | Daljit Singletary, | Remote Device | 2019 | Monitor | | MD [address] [place] | Interrogation | | | | | [place], | (Primary Dx); | | | | | [place] [address] | Pacemaker; | | | | | [phone] | Sinoatrial node | | | | | | dysfunction (HCC) | | | | | | with symptomatic | | | | | | bradycardia | +--------+ + + + + documented as of this encounter Visit Diagnoses Not on filedocumented in this encounter"
--- OUTSIDE RECORDS SUMMARY | ~2020-04-15 | XMS | Encounter Summary ---
Demographics + + + | Address | [address] | | | [place] [address] | + + + | Home Phone [...] Team Providers + +------+ + | Care Globe Tester Name | Role | Phone | [...] | 02/15/ | Office | [facility] [place] | [place], | Symptomatic PVCs | | 2012 | Visit | CARDIOLOGY [address] | PARISA Vernon [address] | (Primary Dx); | | | | [place], | [place], | Bradycardia; HTN | | | | [place] [address] | [place] [address] | (hypertension) | | | | [phone] | [phone] | | | | | | | [...] at which time patient was going to [place] for operations support specialist co nsult and PVC ablation. Since [...] tablet Take 1,000 mg by mouth Daily. [place]-3 Fatty Acids (SALMON OIL-1000 PO) CAPS, one [...] to go back in 3 days to [place] for an attempt of ablation under [...] He is in a class II of [place] [employer] functional class. There is no [...] been encouraged to keep his appointment with operations support specialist this coming to attempt ablation therapy. 4. Follow up appointment in 4-6 weeks. I, PARISA Russell, saw this patient under the direct supervision of Daljit Singletary MD Portions of this report were transcribed using voice recognition software. Every effort wa s made to ensure accuracy; however, inadvertent computerized meat grinder errors may be pre sent. documented in this encounter Plan of Treatment +--------+ + + + + | Date | Type | Specialty | Care Team | Description | +--------+ + + + + | 05/01/ | Appointment | Radiology | Silvia, | | | 2019 | | | PARISA Vernon [address] | | | | | | [place], | | | | | | [place] [address] | | | | | | [phone] | | | | | | | | +--------+ + + + + | 05/01/ | Procedure | Cardiology | | | | 2019 | visit | | | | +--------+ + + + + | 05/01/ | Office | Cardiology | [place], | | | 2019 | Visit | | PARISA Vernon W | | | | | | [place], | | | | | | [place] [address] | | | | | | [phone] | | | | | | | | +--------+ + + + + | 05/21/ | Implant | Cardiology | Daljit Singletary, | Remote Device | 2019 | Monitor | | [address] [place] | Interrogation | | | | | [place], | (Primary Dx); | | | | | [place] [address] | Pacemaker; | | | | | [phone] | Sinoatrial node | | | | [...]
--- OUTSIDE RECORDS SUMMARY | ~2020-04-15 | XMS | Encounter Summary ---
Demographics + + + | Address | [address] | | | [place] [address] | + + + | Home Phone [...] Team Providers + +------+ + | Care Repairer Controller Tester Name | Role | Phone | [...] + + | 06/26/ | Office | [facility] | [place], | Diplopia (Primary | | 2012 | Visit | [facility] | [address] | Dx); Symptomatic | | | | [address] | [place], [place] | PVCs; Hypertension | | | | [place], [place] | [address] | | | | | [address] | | | | | | [phone] | | | +--------+---------+ + + + [...] Double vision will affect your 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 This means it will be harder [...] or, difficulty with vision, speech or walking [address] [place] [address]. All rights reserve d. This information is [...] from his pain clinic visit in the [facility] on Wednesday or he developed double vision [...] double vision. He was evaluated by Dr Burnett and had a normal eye exam, nor [...] tablet by mouth Daily. 30 tablet 6 Isabel-3 Fatty Acids (SALMON OIL-1000 PO) CAPS, one [...] | | | | | | [place] [address] | | | | | | [phone] | | | | | | | | +--------+ + + + + | 05/01/ | Procedure | Cardiology | | | 2019 | visit | | | | +--------+ + + + + | 05/01/ | Office | Cardiology | Silvia, | | | 2019 | Visit | | PARISA Vernon [address] | | | | | | [place], | | | | | | [place] [address] | | | | | | [phone] | | | | | | | | +--------+ + + + + | 05/21/ | Implant | Cardiology | Daljit Singletary, | Remote Device | 2019 | Monitor | | [place] [facility] | Interrogation | | | | | [place], | (Primary Dx); | | | | | [place] [address] | Pacemaker; | | | | | [phone] | Sinoatrial node | | | | [...] + | [facility] | [address] | [place] | [phone] | | [facility] | | [address] | | | - LABORATORY | | | | + + + + + | [facility] | [address] | [place] | | | [facility] | | [address] | | | - LABORATORY [...] + | [facility] | [address] | [place] | [phone] | | [facility] | | [address] | | | - LABORATORY | | | | + + + + + | [facility] | [address] | [place], [place] | | | [facility] | | [address], [place] | | | - LABORATORY | [...] + | [facility] | [address] | [place] | [phone] | | [facility] | | [address] | | | - LABORATORY | | | | + + + + + | [facility] | [address] | [place] | | | [facility] | | [address] [place] [address] | | | - LABORATORY | | | | + + + + + documented in this encounter Visit Diagnoses + + | Diagnosis | + + | Diplopia - Primary | + + | Symptomatic PVCs Other premature beats | + + | Hypertension Unspecified essential hypertension | + + documented in this encounter
--- OUTSIDE RECORDS SUMMARY | ~2020-04-15 | XMS | Encounter Summary ---
Demographics + + + | Address | [address] | | | [place] [address] | + + + | Home Phone [...] Team Providers + +------+ + | Care Proprietary Trader Name | Role | Phone | + +------+ + | Kirk French MD | PCP | | + +------+ + Encounter Details +--------+ + + + + | Date | Type | Department | Care Team | Description | +--------+ + + + + | 12/24/ | Orders Only | [facility] | Conversion | | | 2018 | | [facility] | Transaction, | | | | | PRIMARY CARE [address] | Provider Unknown | | | | | [address] | [phone] | | | | | [place] | | | | | | [address] | | | | | | [phone] | | | +--------+ + + + [...] W | | | | | | [place], | | | | | | [place] [address] | | | | | | [phone] | | | | | | | | +--------+ + + + + | 05/01/ | Procedure | Cardiology | | | | 2019 | visit | | | | +--------+ + + + + | 05/01/ | Office | Cardiology | Silvia, | | | 2019 | Visit | | PARISA Vernon [address] | | | | | | [place], | | | | | | [place] [address] | | | | | | [phone] | | | | | | | | +--------+ + + + + | 05/21/ | Implant | Cardiology | Daljit Singletary, | Remote Device | | 2020 | Monitor | | [address] [facility] | Interrogation | | | | | [place], | (Primary Dx); | | | | | [place] [address] | Pacemaker; | | | | | [phone] | Sinoatrial node | | | | [...] This external order was created through the [employer] Console. | EXTERNAL LAB | | Historically [...]
--- OUTSIDE RECORDS SUMMARY | ~2020-04-15 | XMS | Encounter Summary ---
Demographics + + + | Address | [address] | | | [place] [address] | + + + | Home Phone [...] Providers + +------+ + | Care Print Finishing Worker Name | Role | Phone | + +------+ + | Michael Amanda DO | PCP | | + +------+ + Reason for Visit + + + | Reason | Comments | + + + | Follow-up | One month with [facility] 12/25/13 | + + + | Chest Pain | | + + + Encounter Details +--------+---------+ + + + | Date | Type | Department | Care Team | Description | +--------+---------+ + + + | 01/29/ | Office | [facility] | Silvia, | Other chest pain | | 2013 | Visit | CARDIOLOGY [address] | PARISA Vernon [address] | (Primary Dx); Chest | | | | [place], | [place], | pain; Coronary | | | | [place] [address] | [place] [address] | artery disease; | | | | [phone] | [phone] | Hyperlipidemia; | | | | | [...] last week to the emergency room at [facility] with a baljit st pain episode. Patient [...] needed for Chest pain. 25 tablet 12 [place]-3 Fatty Acids (SALMON OIL-1000 PO) CAPS, one [...] was seen on the emergency room at [place] on 01/26/2014, he was ruled out A [...] pain. He is in class II of [place] Heart Association functional class. There are no [...] to go back in 3 days to [place] for an attempt of ablation under general [...] symptoms. He is in class II of [place] Heart Association functional class. There are no [...] made to ensure accuracy; however, inadvertent computerized doorperson errors may be pre sent. Electronically signed [...] | | | | | | [place] [address] | | | | | | [phone] | | | | | | | [...] | | | | | | [place] [address] | | | | | | [phone] | | | | | | | | +--------+ + + + + | 05/21/ | Implant | Cardiology | Gemini Shaistakenneth, | Remote Device | | 2019 | Monitor | | [address] [facility] | Interrogation | | | | | [place], | (Primary Dx); | | | | | [place] [address] | Pacemaker; | | | | | [phone] | Sinoatrial node | | | | [...] | [place] or graft | + + | Hyperlipidemia Other and unspecified hyperlipidemia | + + | Symptomatic PVCs Other premature beats | + + | Hypertension Unspecified essential hypertension | + + documented in this encounter
--- OUTSIDE RECORDS SUMMARY | ~2020-04-15 | XMS | Encounter Summary ---
Demographics + + + | Address | [address] | | | [place] [address] | + + + | Home Phone [...] Providers + +------+ + | Care Motor Assembler Name | Role | Phone | + +------+ + | Kirk French MD | PCP | | + +------+ + Encounter Details +--------+ + + + + | Date | Type | Department | Care Team | Description | +--------+ + + + + | 12/24/ | Anesthesia | [facility] | Jarett Barakat | | | 2018 | Event | MED CTR [facility] INTRA OP | P, MD [address] | | | | | [address] | [place], [place] | | | | | [place], [place] | [address] | | | | | [address] | [phone] | | | | | [phone] | | | | | | | Arthur Wesley, | | | | | | [address] | | | | | | [place], [place] | | | | | | [address] | | | | | | | [...] 12/24/17 1435 by | | eral | [id number] catheter system; | Desmond Teresa RN | [...] | | | | | | [place] [address] | | | | | | [phone] | | | | | | | | +--------+ + + + + | 05/01/ | Procedure | Cardiology | | | | 2019 | visit | | | | +--------+ + + + + | 05/01/ | Office | Cardiology | Silvia | | | 2019 | Visit | | Janeen, BOTTLE LINE WORKER [address] | | | | | | [place], | | | | | | [place] [address] | | | | | | [phone] | | | | | | | | +--------+ + + + + | 05/21/ | Implant | Cardiology | Daljit Singletary, | Remote Device | | 2020 | Monitor | | [address] [place] | Interrogation | | | | | [place], | (Primary Dx); | | | | | [place] [address] | Pacemaker; | | | | | [phone] | Sinoatrial node | | | | [...]
--- OUTSIDE RECORDS SUMMARY | ~2020-04-15 | XMS | Encounter Summary ---
Demographics + + + | Address | [address] | | | [place] [address] | + + + | Home Phone [...] Providers + +------+ + | Care Production Machine Computer Operator Name | Role | Phone | [...] 2019 | | GASTROENTEROLOGY | [address], [place] | | | | | [address] [place] | [address] [place], [place] | | | | | [address] [place], [place] | [address] | | | | | [address] | | | | | | [phone] | | | +--------+ + + + [...] | | | | | | [place] [address] | | | | | | [phone] | | | | | | | | +--------+ + + + + | 05/01/ | Procedure | Cardiology | | | | 2019 | visit | | | | +--------+ + + + + | 05/01/ | Office | Cardiology | Silvia, | | | 2019 | Visit | | PARISA [address] | | | | | | [address] [place], | | | | | | [place] [address] | | | | | | [phone] | | | | | | | | +--------+ + + + + | 05/21/ | Implant | Cardiology | Daljit Singletary, | Remote Device | 2019 | Monitor | | [address] | Interrogation | | | | | [place], | (Primary Dx); | | | | | [place] [address] | Pacemaker; | | | | | [phone] | Sinoatrial node | | | | [...]
--- OUTSIDE RECORDS SUMMARY | ~2020-04-15 | XMS | Encounter Summary ---
Demographics + + + | Address | [address] | | | [place] [address] | + + + | Home Phone [...] Providers + +------+ + | Care Air Cargo Specialist Supervisor Name | Role | Phone | [...] Provider Unknown | | | | | [place], [place] | [phone] | | | | | [address] | | | | | | [phone] | | | +--------+ + + + [...] + + +---------+ + + | [place]-3 Fatty | CAPS, one capsule by | [...] W | | | | | | [place], | | | | | | [place] [address] | | | | | | [phone] | | | | | | | | +--------+ + + + + | 05/01/ | Procedure | Cardiology | | | | 2019 | visit | | | | +--------+ + + + + | 05/01/ | Office | Cardiology | Silvia, | | | 2019 | Visit | | PARISA Vernon W | | | | | | [place], | | | | | | [place] [address] | | | | | | [phone] | | | | | | | | +--------+ + + + + | 05/21/ | Implant | Cardiology | Daljit Singletary, | Remote Device | 2019 | Monitor | | MD [address] [place] | Interrogation | | | | | [place], | (Primary Dx); | | | | | [place] [address] | Pacemaker; | | | | | [phone] | Sinoatrial node | | | | [...]
--- OUTSIDE RECORDS SUMMARY | ~2020-04-15 | XMS | Encounter Summary ---
Demographics + + + | Address | [address] [place] [address] [address] LOZANO | | | [place] [address] | + + + | Home Phone [...] [place] | | | | | [address] | | + + + + + Care Team Providers + +------+ + | Care Technology Coach Name | Role | Phone | [...] | | 2020 | | Center at [facility] [address] | [facility] | (capsule referral) | | | | [address] | Road [place], [place] | | | | | Mailcode: Center | [address] | | | | | for Health and | | | | | | [facility] 2 | | | | | | [place], [place] | | | | | | [address] | | | | | | [phone] | | | +--------+ + + + [...]
--- OUTSIDE RECORDS SUMMARY | ~2020-04-15 | XMS | Encounter Summary ---
Demographics + + + | Address | [address] [place] [address] [address] LOZ[address] | | | [place] [address] | + + + | Home Phone [...] [place] | | | | | [address] | | + + + + + Care Team Providers + +------+ + | Care Marine Engineer Cpvec Name | Role | Phone | + [...] | | 2020 | | Center at [facility] [address] | [facility] | (capsule referral) | | | | [address] | Road [place], [place] | | | | | Mailcode: Center | [address] | | | | | for Health and | | | | | | [facility] | | | | | | [place], [place] | | | | | | [address] | | | | | | [phone] | | | +--------+ + + + [...]
--- OUTSIDE RECORDS SUMMARY | ~2020-04-15 | XMS | Encounter Summary ---
Demographics + + + | Address | [address] | | | [place] [address] | + + + | Home Phone [...] Team Providers + +------+ + | Care Telex Operator Name | Role | Phone | [...] | | CARDIOLOGY [address] | [address] [place] | | | | | [place], | [place], | | | | | [place] [address] | [place] [address] | | | | | [phone] | [phone] | | | | | | | [...] W | | | | | | [place], | | | | | | [place] [address] | | | | | | [phone] | | | | | | | | +--------+ + + + + | 05/01/ | Procedure | Cardiology | | | | 2019 | visit | | | | +--------+ + + + + | 05/01/ | Office | Cardiology | Silvia, | | | 2019 | Visit | | PARISA Vernon W | | | | | | [place], | | | | | | [place] [address] | | | | | | [phone] | | | | | | | | +--------+ + + + + | 05/21/ | Implant | Cardiology | Daljit Singletary, | Remote Device | | 2019 | Monitor | | [address] [facility] | Interrogation | | | | | [address], | (Primary Dx); | | | | | [place] [address] | Pacemaker; | | | | | [phone] | Sinoatrial node | | | | | | dysfunction (HCC) | | | | | | with symptomatic | | | | | | bradycardia | +--------+ + + + + documented as of this encounter Visit Diagnoses Not on filedocumented in this encounter"
--- OUTSIDE RECORDS SUMMARY | ~2020-04-15 | XMS | Encounter Summary ---
Demographics + + + | Address | [address] | | | [place] [address] | + + + | Home Phone [...] Providers + +------+ + | Care Motor Vehicle Technician Name | Role | Phone | [...] unspecified | [address] | [address] | | | | | type | [address] | [place], | | | | | Procedures | [place], | [place] | | | | | [place] | [place] [address] | [address] | | | | | Stress Test | Phone: | Phone: | | | | | (Vasodilator | [phone] | [phone] | | | | | ) CHG | Fax: | Fax: | | | | | MYOCARDIAL | [phone] | [phone] | | | | | SPECT | | | | | | | MULTIPLE | | | | | | | STUDIES AK | | | | | | | CV STRS TST | | | | | | | XERS&/OR RX | | | | | | | CONT ECG W/O | | | | | | | I&R AK | | | | | | | [...] | type | [address] | [address] | | | | | Procedures | [place] | [place], | | | | | FUP | [place] | [place] [address] | | | | | | [address] | Phone: | | | | | | Phone: | [phone] | | | | | | [phone] | Fax: | | | | | | Fax: | [phone] | | | | | | [phone] | | +--------+ + + + + + Encounter Details +--------+---------+ + + + | Date | Type | Department | Care Team | Description | +--------+---------+ + + + | 06/27/ | Office | [facility] | Sydni Singletary, | Pacemaker | | 2017 | Visit | CARDIOLOGY [address] | [address] [facility] | reprogramming/check | | | | [address], | [address], | DO NOT DELETE | | | | [place] [address] | [place] [address] | (Primary Dx); Chest | | | | [phone] | [phone] | pain, unspecified | | | | [...] of non-critical coronary artery d isease involving pilot station coronary artery of pilot station heart without angina pectoris, essential h ypertension, [...] that time, patient has been seen at [facility] emergency department on 018 for chest pain [...] Preventative health care Coronary artery disease involving pilot station coronary artery of pilot station heart without angina pectoris Cannabis abuse, daily [...] by mouth every evening 90 tablet 0 [facility] Products [...] 3RD DOSE, CALL 911 100 tablet 3 [place]-3 Fatty Acids (SALMON OIL-1000 PO) CAPS, one capsule by mouth daily twice daily ONE TOUCH DELICA LANCETS [facility] Check glucose as needed for hypoglycemia 100 [...] reviewed during visit today primarily from [facility]: LIPID Lab Results Component Value Date [...] go back in 3 days to [place] for an attempt of ablation under general [...] PVCs. 2. Non-critical Coronary artery disease involving pilot station coronary artery of pilot station heart [facility] angina pectoris: A. Normal exercise sestamibi stress test on 05/25/09. LVEF by [facility] ed SPECT was 53%. B. Echocardiogram from [...] cannot completely be ruled out . D. [facility] 12/25/13, shows non critical coronary artery disease, [...] He is in a class I of [employer] functiona l class. There is [...] reviewed and edited this note. Allyson Curtis, Toddler Guide 06/27/2018 I, Sydni Singletary MD, personally performed the services described in this documentation, as scribed in my presence and it is both accurate and complete. Allyson Curtis, Med Ass t 06/27/2018 14:15 Electronically signed by: Sydni Singletary MD [facility] 06/27/2018 Portions of this chart may have been created with [employer] voice recognition software. Occasi onal wrong-word or [...] | | | | | | [place] [address] | | | | | | [phone] | | | | | | | [...] | | | | | | [place] [address] | | | | | | [phone] | | | | | | | | +--------+ + + + + | 05/21/ | Implant | Cardiology | Sydni Singletary, | Remote Device | 2019 | Monitor | | [address] [place] | Interrogation | | | | | [address], | (Primary Dx); | | | | | [place] [address] | Pacemaker; | | | | | [phone] | Sinoatrial node | | | | [...] SYDNI | | | | | | ([id number]) on 06/27/2018 | | | | | [...]
--- OUTSIDE RECORDS SUMMARY | ~2020-04-15 | XMS | Encounter Summary ---
Demographics + + + | Address | [address] | | | [place] [address] | + + + | Home Phone [...] Team Providers + +------+ + | Care Pelts Skinner Name | Role | Phone | + [...] 2017 | | CARDIOLOGY [address] | MEDICAL IMAGING SPECIALIST [address] [place] | | | | | [place], | [place], [place] | | | | | [place] [address] | [address] | | | | | [phone] | | | +--------+--------+ + + + [...] W | | | | | | [place], | | | | | | [place] [address] | | | | | | [phone] | | | | | | | | +--------+ + + + + | 05/01/ | Procedure | Cardiology | | | | 2019 | visit | | | | +--------+ + + + + | 05/01/ | Office | Cardiology | Silvia, | | | 2019 | Visit | | PARISA [address] | | | | | | [place], | | | | | | [place] [address] | | | | | | [phone] | | | | | | | | +--------+ + + + + | 05/21/ | Implant | Cardiology | Daljit Singletary, | Remote Device | | 2019 | Monitor | | [facility] | Interrogation | | | | | [place], | (Primary Dx); | | | | | [place] [address] | Pacemaker; | | | | | [phone] | Sinoatrial node | | | | | | dysfunction (HCC) | | | | | | with symptomatic | | | | | | bradycardia | +--------+ + + + + documented as of this encounter Visit Diagnoses Not on filedocumented in this encounter"
--- OUTSIDE RECORDS SUMMARY | ~2020-04-15 | XMS | Encounter Summary ---
Demographics + + + | Address | [address] | | | [place] [address] | + + + | Home Phone [...] Providers + +------+ + | Care Research Greenhouse Supervisor Name | Role | Phone | [...] + + | 09/13/ | Office | [facility] | Bahman Gant MD | Other dysphagia | | 2013 | Visit | OTOLARYNGOLOGY [address] | [address] [place] | (Primary Dx) | | | | [address] [place] | [address] [place], | | | | | [place], [place] | [place] [address] | | | | | [address] | [phone] | | | | | [phone] | | | +--------+---------+ + + + [...] MD - 09/13/2013 5:46 PM PDTSee dictation #[id number] signed by Joseph Gant MD at 09/13/2013 5:52 PM Bahman Lamb MD - 09/13/2013 12:00 AM PDT ENT AND AUDIOLOGY [address] [facility] [address] [place] [address] FAX: [phone] OFFICE VISIT The patient gives a history [...] Gant MD GM / MS JOB #: [id number] signed by Bahman Gant MD at 09/14/2013 [...] | | | | | | [place] [address] | | | | | | [phone] | | | | | | | | +--------+ + + + + | 05/01/ | Procedure | Cardiology | | | 2019 | visit | | | | +--------+ + + + + | 05/01/ | Office | Cardiology | Silvia, | | | 2019 | Visit | | [address] | | | | | | [place], | | | | | | [place] [address] | | | | | | [phone] | | | | | | | | +--------+ + + + + | 05/21/ | Implant | Cardiology | Daljit Singletary, | Remote Device | | 2019 | Monitor | | MD Sim [facility] | Interrogation | | | | | [place], | (Primary Dx); | | | | | [place] [address] | Pacemaker; | | | | | [phone] | Sinoatrial node | | | | [...]
--- OUTSIDE RECORDS SUMMARY | ~2020-04-15 | XMS | Encounter Summary ---
Demographics + + + | Address | [address] | | | [place] [address] | + + + | Home Phone [...] Providers + +------+ + | Care Concrete Floor Installer Name | Role | Phone | [...] Provider Unknown | | | | | [place], [place] | [phone] | | | | | [address] | | | | | | [phone] | | | +--------+ + + + [...] + + + +---------+ + + | [place]-3 Fatty | CAPS, one capsule by | [...] | | | | | | [place] [address] | | | | | | [phone] | | | | | | | | +--------+ + + + + | 05/01/ | Procedure | Cardiology | | | | 2019 | visit | | | | +--------+ + + + + | 05/01/ | Office | Cardiology | [place], | | | 2019 | Visit | | [place] [address] | | | | | | [place], | | | | | | [place] [address] | | | | | | [phone] | | | | | | | | +--------+ + + + + | 05/21/ | Implant | Cardiology | Daljit Singletary, | Remote Device | | 2019 | Monitor | | [facility] | Interrogation | | | | | [place], | (Primary Dx); | | | | | [place] [address] | Pacemaker; | | | | | [phone] | Sinoatrial node | | | | [...]
--- OUTSIDE RECORDS SUMMARY | ~2020-04-15 | XMS | Encounter Summary ---
Demographics + + + | Address | [address] | | | [place] [address] | + + + | Home Phone [...] Providers + +------+ + | Care Mud Jack Operator Name | Role | Phone [...] W | question) | | | | [place], | [place], | | | | | [place] [address] | [place] [address] | | | | | [phone] | [phone] | | | | | | | [...] | | | | | | [place] [address] | | | | | | [phone] | | | | | | | | +--------+ + + + + | 05/01/ | Procedure | Cardiology | | | | 2019 | visit | | | | +--------+ + + + + | 05/01/ | Office | Cardiology | [place], | | | 2019 | Visit | | [place] [address] | | | | | | [place], | | | | | | [place] [address] | | | | | | [phone] | | | | | | | | +--------+ + + + + | 05/21/ | Implant | Cardiology | Daljit Singletary, | Remote Device | | 2019 | Monitor | | [address] [place] | Interrogation | | | | | [place], | (Primary Dx); | | | | | [place] [address] | Pacemaker; | | | | | [phone] | Sinoatrial node | | | | | | dysfunction ([facility]) | | | | | | with symptomatic | | | | | | bradycardia | +--------+ + + + + documented as of this encounter Visit Diagnoses Not on filedocumented in this encounter"
--- OUTSIDE RECORDS SUMMARY | ~2020-04-15 | XMS | Encounter Summary ---
Demographics + + + | Address | [address] | | | [place] [address] | + + + | Home Phone [...] Providers + +------+ + | Care Drywall Worker Name | Role | Phone | + +------+ + | Michael Amanda DO | PCP | | + +------+ + Encounter Details +--------+ + + + + | Date | Type | Department | Care Team | Description | +--------+ + + + + | 05/11/ | Hospital | [facility] | Conversion | Lumbago; | | 2013 | Encounter | [facility] | Transaction, | Postlaminectomy | | | | CLINICAL DECISION | Provider Unknown | syndrome, cervical | | | | [address] | | region; Cervicalgia | | | | [place], [place] | (Fax) | | | | | [address] | Cesar, | | | | | [phone] | MD Gamaliel | | +--------+ + [...] + + +---------+ + + | [place]-3 Fatty | CAPS, one capsule by | [...] Note by Meliza Macario RN at 05/11/14 1502 Author: Meliza Macario RN Service: (none) Author Type: Registered Nurse Filed: 05/11/14 1506 Date of Service: 05/11/14 150 Status: Signed Commercial Credit Reviewer: Meliza Macario RN (Registered Nurse) Pt discharged home, discharge instructions were reviewed, prescriptions provided, and quest ions answered. IV discontinued- gauze and tape applied to site. onver fatemeh Transaction, Provider Unknown - 05/11/2014 2:23 PM PDT Nurse Progress Note by Heike Mckeon RN at 05/11/14 1427 Author: Heike Mckeon RN Service: (none) Author Type: Registered Nurse Filed: 05/11/14 1424 Date of Service: 05/11/14 142 Status: Signed Commercial Credit Reviewer: Heike Mckeon RN (Registered Nurse) Called doctor [...] | | | | | | [place] [address] | | | | | | [phone] | | | | | | | | +--------+ + + + + | 05/01/ | Procedure | Cardiology | | | | 2019 | visit | | | | +--------+ + + + + | 05/01/ | Office | Cardiology | [place], | | | 2019 | Visit | | [address] | | | | | | [place], | | | | | | [place] [address] | | | | | | [phone] | | | | | | | | +--------+ + + + + | 05/21/ | Implant | Cardiology | Daljit Singletary, | Remote Device | | 2019 | Monitor | | [facility] | Interrogation | | | | | [place], | (Primary Dx); | | | | | [place] [address] | Pacemaker; | | | | | [phone] | Sinoatrial node | | | | [...] | | | intrathecal use. See the school transportation director examination for details of the | | | injection. Bone algorithm noncontrast technique with reformatted | | | sagittal and coronal images. Prior study for review : CT discogram | | | from 2004 was used to orient this examination given the transitional | | | anatomy of the lumbosacral junction FINDINGS: Dehydrogenation Converter Operator is notable | | | for a [...] for intrathecal use. See | | the school transportation director examination for details of the injection. Bone algorithm noncontrast | | technique with reformatted sagittal and coronal images. Prior study for review : CT | | discogram from 2004 was used to orient this examination given the transitional anatomy | | of the lumbosacral junction FINDINGS: Dehydrogenation Converter Operator is notable for a pacing system. Anterior [...]
--- OUTSIDE RECORDS SUMMARY | ~2020-04-15 | XMS | Encounter Summary ---
Demographics + + + | Address | [address] | | | [place] [address] | + + + | Home Phone [...] + +------+ + | Care Professor Of Education Name | Role | Phone | + +------+ + PCP | Unavailable | + +------+ + Encounter Details +--------+ + + + + | Date | Type | Department | Care Team | Description | +--------+ + + + + | 01/31/ | Hospital | [facility] | | | | 2008 | Encounter | MED CTR EMERGENCY | | | | | | [place] [address] | | | | | | [place] | | | | | | [address] | | | | | | [phone] | | | +--------+ + + + [...] | | | | | | [place] [address] | | | | | | [phone] | | | | | | | | +--------+ + + + + | 05/01/ | Procedure | Cardiology | | | | 2019 | visit | | | | +--------+ + + + + | 05/01/ | Office | Cardiology | [place], | | | 2019 | Visit | | [address] | | | | | | [place], | | | | | | [place] [address] | | | | | | [phone] | | | | | | | | +--------+ + + + + | 05/21/ | Implant | Cardiology | Daljit Singletary, | Remote Device | 2019 | Monitor | | [address] [place] | Interrogation | | | | | [place], | (Primary Dx); | | | | | [place] [address] | Pacemaker; | | | | | [phone] | Sinoatrial node | | | | | | dysfunction (HCC) | | | | | | with symptomatic | | | | | | bradycardia | +--------+ + + + + documented as of this encounter Visit Diagnoses Not on filedocumented in this encounter"
--- OUTSIDE RECORDS SUMMARY | ~2020-04-15 | XMS | Encounter Summary ---
Demographics + + + | Address | [address] | | | [place] [address] | + + + | Home Phone [...] Providers + +------+ + | Care Process Improvement Manager Name | Role | Phone | [...] | CARDIOLOGY [address] | MD [address] [place] | | | | | [place], | [place], | | | | | [place] [address] | [place] [address] | | | | | [phone] | [phone] | | | | | | | [...] W | | | | | | [place], | | | | | | [place] [address] | | | | | | [phone] | | | | | | | | +--------+ + + + + | 05/01/ | Procedure | Cardiology | | | | 2019 | visit | | | | +--------+ + + + + | 05/01/ | Office | Cardiology | [place], | | | 2019 | Visit | | [place] [address] | | | | | | [place], | | | | | | [place] [address] | | | | | | [phone] | | | | | | | | +--------+ + + + + | 06/30/ | Implant | Cardiology | Daljit Singletary, | Remote Device | | 2019 | Monitor | | [facility] | Interrogation | | | | | [place], | (Primary Dx); | | | | | [place] [address] | Pacemaker; | | | | | [phone] | Sinoatrial node | | | | | | dysfunction (HCC) | | | | | | with symptomatic | | | | | | bradycardia | +--------+ + + + + documented as of this encounter Visit Diagnoses Not on filedocumented in this encounter"
--- OUTSIDE RECORDS SUMMARY | ~2020-04-15 | XMS | Encounter Summary ---
Demographics + + + | Address | [address] | | | [place] [address] | + + + | Home Phone [...] Team Providers + +------+ + | Care Virtualization Consultant Name | Role | Phone | [...] [address] | | | | | [place], | [place], | | | | | [place] [address] | [place] [address] | | | | | [phone] | [phone] | | | | | | | [...] W | | | | | | [place], | | | | | | [place] [address] | | | | | | [phone] | | | | | | | | +--------+ + + + + | 05/01/ | Procedure | Cardiology | | | | 2019 | visit | | | | +--------+ + + + + | 05/01/ | Office | Cardiology | [place], | | | 2019 | Visit | | [address] | | | | | | [place], | | | | | | [place] [address] | | | | | | [phone] | | | | | | | | +--------+ + + + + | 05/21/ | Implant | Cardiology | Daljit Singletary, | Remote Device | | 2019 | Monitor | | [address] [facility] | Interrogation | | | | | [place], | (Primary Dx); | | | | | [place] [address] | Pacemaker; | | | | | [phone] | Sinoatrial node | | | | | | dysfunction (HCC) | | | | | | with symptomatic | | | | | | bradycardia | +--------+ + + + + documented as of this encounter Visit Diagnoses Not on filedocumented in this encounter"
--- OUTSIDE RECORDS SUMMARY | ~2020-04-15 | XMS | Encounter Summary ---
Demographics + + + | Address | [address] | | | [place] [address] | + + + | Home Phone [...] Team Providers + +------+ + | Care Cord Maker Name | Role | Phone | [...] + + | 06/18/ | Emergency | [facility] | Dom Graham, | Cervical pain (neck) | | 2013 | | MED CTR EMERGENCY | MD [address] | (Primary Dx); | | | | CENTER [address] | [place] | Paresthesia and pain | | | | [place], [place] | [address] | of both upper | | | | [address] | | extremities | | | | [phone] | | | +--------+ + + + [...] cannot be sent through Care Everywhere.PARAESTHESIAS ( PALESTINIAN)NECK SPRAIN/STRAIN (PALESTINIAN)documented in this encounter Medications at Time of [...] + + + +---------+ + + | [place]-3 Fatty | CAPS, one capsule by [...] W | | | | | | [place], | | | | | | [place] [address] | | | | | | [phone] | | | | | | | | +--------+ + + + + | 05/01/ | Procedure | Cardiology | | | | 2019 | visit | | | | +--------+ + + + + | 05/01/ | Office | Cardiology | [place], | | | 2019 | Visit | | [place] [address] | | | | | | [place], | | | | | | [place] [address] | | | | | | [phone] | | | | | | | | +--------+ + + + + | 05/21/ | Implant | Cardiology | Daljit Singletary, | Remote Device | | 2019 | Monitor | | MD [address] | Interrogation | | | | | [place], | (Primary Dx); | | | | | [place] [address] | Pacemaker; | | | | | [phone] | Sinoatrial node | | | | [...] posterior pedicle | | | screw and parsi fixation has been placed from C6 to [...] + | MISCELLANEOUS LAB | | | [phone] | + +---------+ + + | MISCELANIOUS LAB | | | [phone] | + +---------+ + + documented in this encounter Visit Diagnoses + + | Diagnosis | + + | Cervical pain (neck) - Primary Cervicalgia | + + | Paresthesia and pain of both upper extremities Disturbance of skin sensation | + + documented in this encounter
--- OUTSIDE RECORDS SUMMARY | ~2020-04-15 | XMS | Encounter Summary ---
Demographics + + + | Address | [address] | | | [place] [address] | + + + | Home Phone [...] Team Providers + +------+ + | Care Final Tester Name | Role | Phone | [...] | | | | stenosis | L, EMS MANAGER [address] | | | | | | Procedures | [address] | | | | | | CT | [address] | | | | | | Myelography | [place], [place] | | | | | | Cervical | [address] | | | | | | Spine | Phone: | | | | | | | [phone] | | | | | | | Fax: | | | | | | | [phone] | | +--------+--------+ + + + + [...] + + | 06/04/ | Hospital | [facility] | Sariah, | Cervical spinal | | 2016 | Encounter | MED CTR [address] | [place] EMS MANAGER [address] | stenosis | | | | [place], | [address] | | | | | [place] [address] | [place] [address] | | | | | [phone] | [phone] | | | | | | | [...] + + + +---------+ + + | [place]-3 Fatty | CAPS, one capsule by | [...] | | | | | | [place] [address] | | | | | | [phone] | | | | | | | | +--------+ + + + + | 05/01/ | Procedure | Cardiology | | | | 2019 | visit | | | | +--------+ + + + + | 05/01/ | Office | Cardiology | [place], | | | 2019 | Visit | | [place] [address] | | | | | | [place], | | | | | | [place] [address] | | | | | | [phone] | | | | | | | | +--------+ + + + + | 05/21/ | Implant | Cardiology | Daljit Singletary, | Remote Device | | 2019 | Monitor | | [address] | Interrogation | | | | | [place], | (Primary Dx); | | | | | [place] [address] | Pacemaker; | | | | | [phone] | Sinoatrial node | | | | [...]
--- OUTSIDE RECORDS SUMMARY | ~2020-04-15 | XMS | Encounter Summary ---
Demographics + + + | Address | [address] | | | [place] [address] | + + + | Home Phone [...] Team Providers + +------+ + | Care Heel Cover Splitter Name | Role | Phone | [...] | SLEEP DISORDER [address] | [address] | Dx) | | | | [address] [place] | [place] | | | | | [place] [address] | [address] | | | | | [phone] | | | +--------+---------+ + + + [...] pillows obtained from: [facility] [place] pressure is: 13 cm CPAP download shows [...] to go to [facility] in [place] to have them download his memory card. I will readjust his pressure, if necessary. I will call him with the results. He is to work toward wearing his CPAP 100% of the time he is asleep. I will follow up again in 1 month, sooner prn. Fifteen minutes were spent [id number], wi th the majority of time spent [...] | | | | | | [place] [address] | | | | | | [phone] | | | | | | | [...] | | | | | | [place] [address] | | | | | | [phone] | | | | | | | | +--------+ + + + + | 05/21/ | Implant | Cardiology | SunshinecherelleDaljit, | Remote Device | | 2019 | Monitor | | [facility] | Interrogation | | | | | [place], | (Primary Dx); | | | | | [place] [address] | Pacemaker; | | | | | [phone] | Sinoatrial node | | | | [...]
--- OUTSIDE RECORDS SUMMARY | ~2020-04-15 | XMS | Encounter Summary ---
Demographics + + + | Address | [address] | | | [place] [address] | + + + | Home Phone [...] Team Providers + +------+ + | Care Mounter Clarinets Name | Role | Phone | + +------+ + PCP | Unavailable | + +------+ + Encounter Details +--------+ + + + + | Date | Type | Department | Care Team | Description | +--------+ + + + + | 09/29/ | Hospital | [facility] | | | | 1995 | Encounter | MED CTR EMERGENCY | | | | | | [place] [address] | | | | | | [place] | | | | | | [address] | | | | | | [phone] | | | +--------+ + + + [...] | | | | | | [place] [address] | | | | | | [phone] | | | | | | | | +--------+ + + + + | 05/01/ | Procedure | Cardiology | | | | 2019 | visit | | | | +--------+ + + + + | 05/01/ | Office | Cardiology | Silvia, | | | 2019 | Visit | | [address] | | | | | | [place], | | | | | | [place] [address] | | | | | | [phone] | | | | | | | | +--------+ + + + + | 05/21/ | Implant | Cardiology | Daljit Singletary, | Remote Device | 2019 | Monitor | | [address] [place] | Interrogation | | | | | [place], | (Primary Dx); | | | | | [place] [address] | Pacemaker; | | | | | [phone] | Sinoatrial node | | | | | | dysfunction (HCC) | | | | | | with symptomatic | | | | | | bradycardia | +--------+ + + + + documented as of this encounter Visit Diagnoses Not on filedocumented in this encounter"
--- OUTSIDE RECORDS SUMMARY | ~2020-04-15 | XMS | Encounter Summary ---
Demographics + + + | Address | [address] | | | [place] [address] | + + + | Home Phone [...] Providers + +------+ + | Care Edi Architect Name | Role | Phone | [...] 2012 | | CARDIOLOGY [address] | TRUCKING MANAGER [address] | | | | | [address] [place], | [place], [place] | | | | | [place] [address] | [address] | | | | | [phone] | | | +--------+ + + + [...] | | | | | | [place] [address] | | | | | | [phone] | | | | | | | | +--------+ + + + + | 05/01/ | Procedure | Cardiology | | | | 2019 | visit | | | | +--------+ + + + + | 05/01/ | Office | Cardiology | Silvia, | | | 2019 | Visit | | [address] | | | | | | [place], | | | | | | [place] [address] | | | | | | [phone] | | | | | | | | +--------+ + + + + | 05/21/ | Implant | Cardiology | Daljit Singletary, | Remote Device | 2019 | Monitor | | [address] | Interrogation | | | | | [place], | (Primary Dx); | | | | | [place] [address] | Pacemaker; | | | | | [phone] | Sinoatrial node | | | | [...] | | [facility] | | [address], [facility] | | | [...] | | | LAB | | | [place], | | | | | | External [...]
--- OUTSIDE RECORDS SUMMARY | ~2020-04-15 | XMS | Encounter Summary ---
Demographics + + + | Address | [address] | | | [place] [address] | + + + | Home Phone [...] Team Providers + +------+ + | Care Fountain Roller Assembler Name | Role | Phone | [...] | CARDIOLOGY [address] | [address] | (Primary Dx); | | | | [place], | [place], | Tachycardia; | | | | [place] [address] | [place] [address] | Coronary artery | | | | [phone] | [phone] | disease involving | | | | | | nez perce coronary | | | | | | artery of nez perce | | | | | | heart [...] | | | | | | [place] [address] | | | | | | [phone] | | | | | | | | +--------+ + + + + | 05/01/ | Procedure | Cardiology | | | | 2019 | visit | | | | +--------+ + + + + | 05/01/ | Office | Cardiology | Silvia, | | | 2019 | Visit | | [address] | | | | | | [place], | | | | | | [place] [address] | | | | | | [phone] | | | | | | | | +--------+ + + + + | 05/21/ | Implant | Cardiology | Daljit Singletary, | Remote Device | 2019 | Monitor | | MD [facility] | Interrogation | | | | | [place], | (Primary Dx); | | | | | [place] [address] | Pacemaker; | | | | | [phone] | Sinoatrial node | | | | [...] involving | | | | | | nez perce coronary | | | | | | artery of nez perce | | | | | | heart [...] DALJIT | | | | | | ([id number]) on 06/29/2018 | | | | | [...] + + | Coronary artery disease involving nez perce coronary artery of nez perce heart without | | angina pectoris | + + | Hypertension, unspecified type | + + documented in this encounter"
--- OUTSIDE RECORDS SUMMARY | ~2020-04-15 | XMS | Encounter Summary ---
Demographics + + + | Address | [address] | | | [place] [address] | + + + | Home Phone [...] Providers + +------+ + | Care Digital Learning Platforms Manager Name | Role | Phone | [...] [address] | | | | | [address] | [place] | | | | | [phone] | [address] | | | | | | [phone] | | | | | | | [...] | | | | | | [place] [address] | | | | | | [phone] | | | | | | | [...] | | | | | | [place] [address] | | | | | | [phone] | | | | | | | | +--------+ + + + + | 05/21/ | Implant | Cardiology | SunshinecherelleDaljit, | Remote Device | | 2019 | Monitor | | [facility] | Interrogation | | | | | [place], | (Primary Dx); | | | | | [place] [address] | Pacemaker; | | | | | [phone] | Sinoatrial node | | | | [...] | EXTERNAL LAB: [facility] | Routin | 04/11/2018 | | Results [...] + + + | Red Blood | 4.54 | 4.20 - 5.70 | [...]
--- OUTSIDE RECORDS SUMMARY | ~2020-04-15 | XMS | Encounter Summary ---
Demographics + + + | Address | [address] | | | [place] [address] | + + + | Home Phone [...] Team Providers + +------+ + | Care Lining Closer Name | Role | Phone | + +------+ + | Michael Amanda DO | PCP | | + +------+ + Encounter Details +--------+ + + + + | Date | Type | Department | Care Team | Description | +--------+ + + + + | 04/03/ | Hospital | [facility] | Jay Gambino MD | | | 2012 - | Encounter | [facility] | [address] | | | | | CARDIAC TRANSPLANT | [address] [place] | | | 04/04/ | | [address] | [place] [address] | | | 2012 | | [place] | [phone] | | | | | [address] | | | | | | [phone] | | | +--------+ + + + [...] 1960 ADMISSION DATE: 04/03/2013 DISCHARGE DATE: 04/04/2013 [id number] / [id number] ADMISSION DIAGNOSES: 1. Symptomatic premature ventricular contractions [...] study and ablati on. MOE GAY ADM:04/03/13 [id number] 04/04/13 [place] DISCHARGE SUMMARY [id number] [facility] PARISA Hughes [facility] MD Meena Pleitez THIS REPORT IS CONFIDENTIAL AND NOT TO BE RELEASED WITHOUT PROPER AUTHORIZATION. [facility] Mr. Gay was taken to the cardiac [...] 180 mg once daily. MOE GAY ADM:04/03/13 [id number] 04/04/13 [place] DISCHARGE SUMMARY [id number] [facility] PARISA Hughes [facility] MD Meena Pleitez THIS REPORT IS CONFIDENTIAL AND NOT TO BE RELEASED WITHOUT PROPER AUTHORIZATION. [facility] 5. Docusate sodium 2 tablets once daily. 6. Marinol 10 mg twice daily. 7. Metoprolol succinate 200 mg once daily. 8. Oxycodone 10 mg 10 mg oral as needed. 9. Oxycodone 30 mg oral twice daily. 10. Pravastatin 40 mg at bedtime. 11. Promethazine 25 mg as needed. 12. Ranitidine 1 to 2 tablets once daily. 13. [place] oil 2 tablets twice daily. 14. Valacyclovir 500 mg once daily. There were no new medications or medication dosage changes at time of discharge. PLAN: 1. Mr. Gay will be discharged home on medications as noted above, including his usual m edications of diltiazem and metoprolol. 2. He will be seen and followed by Dr. Gambino on 16 at 9:00 a.m. at [facility], [address]. 3. He will contact our office earlier than scheduled appointment should he have any diffic ulty prior to that time. PARISA Hughes MD A P RICHIE/med #[id number] cc: MD Dona Pleitez ARNP Suwong Wongsuwan, MD Electronically Signed 04/12/13 1400 PARISA Hughes Electronically Signed 05/22/13 1245 Jay Gambino MD MOE GAY ADM:04/03/13 [id number] 04/04/13 [place] DISCHARGE SUMMARY [id number] [facility] PARISA Hughes [facility] Jay Gambino MD R THIS REPORT IS CONFIDENTIAL AND NOT TO BE RELEASED WITHOUT PROPER AUTHORIZATION.Electronica lly signed by Jael Brown at 05/22/2013 1:25 PM Dona Grossman ARNP - 04/04/2013 9:05 AM PDT PATIENT NAME: MOE GAY Sex/Age: M / 53Y : 1960 ADMISSION DATE: 04/03/2013 DISCHARGE DATE: 04/04/2013 [id number] / [id number] ADMISSION DIAGNOSES: 1. Symptomatic premature ventricular contractions [...] and ablati on. MOE GAY Jaimee ADM:04/03/13 [id number] 04/04/13 [place] DISCHARGE SUMMARY [id number] [facility] PARISA Hughes [facility] MD Meena Pleitez THIS REPORT IS CONFIDENTIAL AND NOT TO BE RELEASED WITHOUT PROPER AUTHORIZATION. [facility] Mr. Gay was taken to the cardiac [...] 180 mg once daily. MOE GAY ADM:04/03/13 [id number] 04/04/13 [place] DISCHARGE SUMMARY [id number] [facility] PARISA Hughes [facility] MD Meena Pleitez THIS REPORT IS CONFIDENTIAL AND NOT TO BE RELEASED WITHOUT PROPER AUTHORIZATION. [facility] 5. Docusate sodium 2 tablets once daily. 6. Marinol 10 mg twice daily. 7. Metoprolol succinate 200 mg once daily. 8. Oxycodone 10 mg 10 mg oral as needed. 9. Oxycodone 30 mg oral twice daily. 10. Pravastatin 40 mg at bedtime. 11. Promethazine 25 mg as needed. 12. Ranitidine 1 to 2 tablets once daily. 13. [place] oil 2 tablets twice daily. 14. Valacyclovir 500 mg once daily. There were no new medications or medication dosage changes at time of discharge. PLAN: 1. Mr. Gay will be discharged home on medications as noted above, including his usual m edications of diltiazem and metoprolol. 2. He will be seen and followed by Dr. Gambino on 16 at 9:00 a.m. at [facility], [address]. 3. He will contact our office earlier than scheduled appointment should he have any diffic ulty prior to that time. PARISA Hughes MD A P RICHIE/med #[id number] cc: MD Dona Pleitez ARNP Suwong Wongsuwan, MD Electronically Signed 04/12/13 1400 PARISA Hughes MOE GAY ADM:04/03/13 [id number] 04/04/13 [place] DISCHARGE SUMMARY [id number] [facility] PARISA Hughes [facility] MD Meena Pleitez THIS REPORT IS CONFIDENTIAL [...] | | | | | | [place] [address] | | | | | | [phone] | | | | | | | | +--------+ + + + + | 05/01/ | Procedure | Cardiology | | | | 2019 | visit | | | | +--------+ + + + + | 05/01/ | Office | Cardiology | Silvia, | | | 2019 | Visit | | PARISA Vernon [address] | | | | | | [place], | | | | | | [place] [address] | | | | | | [phone] | | | | | | | | +--------+ + + + + | 05/21/ | Implant | Cardiology | Daljit Singletary, | Remote Device | | 2019 | Monitor | | MD [address] [place] | Interrogation | | | | | [place], | (Primary Dx); | | | | | [place] [address] | Pacemaker; | | | | | [phone] | Sinoatrial node | | | | [...] + + + | Glucose | 94Comment: Malagasy | 65 - 99 mg/dL | [facility] [...] + | [facility] | [address] | [place] [address] | | | [facility] | | [...] + + | YESSY JONES | [address] | [place] [address] | | | [facility] | | | | | LABORATORY | | | | + + + + + documented in this encounter Visit Diagnoses Not on filedocumented in this encounter"
--- OUTSIDE RECORDS SUMMARY | ~2020-04-15 | XMS | Encounter Summary ---
Demographics + + + | Address | [address] | | | [place] [address] | + + + | Home Phone [...] Providers + +------+ + | Care Power Distribution Engineer Name | Role | Phone | [...] + | 02/16/ | Telephone | [facility] | [place], | Other (concerned | | 2012 | | CARDIOLOGY [address] | PARISA [place] [address] | about palpitations) | | | | [place], | [place], | | | | | [place] [address] | [place] [address] | | | | | [phone] | [phone] | | | | | | | [...] W | | | | | | [place], | | | | | | [place] [address] | | | | | | [phone] | | | | | | | | +--------+ + + + + | 05/01/ | Procedure | Cardiology | | | | 2019 | visit | | | | +--------+ + + + + | 05/01/ | Office | Cardiology | Silvia, | | | 2019 | Visit | | PARISA Vernon [address] | | | | | | [place], | | | | | | [place] [address] | | | | | | [phone] | | | | | | | | +--------+ + + + + | 05/21/ | Implant | Cardiology | Daljit Singletary, | Remote Device | | 2019 | Monitor | | [facility] | Interrogation | | | | | [place], | (Primary Dx); | | | | | [place] [address] | Pacemaker; | | | | | [phone] | Sinoatrial node | | | | | | dysfunction (HCC) | | | | | | with symptomatic | | | | | | bradycardia | +--------+ + + + + documented as of this encounter Visit Diagnoses Not on filedocumented in this encounter"
--- OUTSIDE RECORDS SUMMARY | ~2020-04-15 | XMS | Clinical Summary ---
Demographics + + + | Address | [address] | | | [place] [address] | + + + | Home Phone [...] | | | + + +--------+---+------+------+-------+ | Liebenthal-3 Fatty | CAPS, one capsule by | [...] | | | | | | | united [place]owah coronary | | | | | | | | artery of united [place]ah | | | | | | | [...] automatically from request for surgery | | [id number] | + + + + + | Diarrhea, unspecified type | 01/15/2020 | + + + + + | Overview: Added automatically from request for surgery | | [id number] | + + + + + | Unintentional weight loss | 01/15/2020 | + + + + + | Overview: Added automatically from request for surgery | | [id number] | + + + + + | Opioid type dependence, continuous | 01/15/2020 | + + + + + | Overview: Added automatically from request for surgery | | [id number] | + + + + + | Allergy to opioid analgesic | 01/15/2020 | + + + + + | Overview: Added automatically from request for surgery | | [id number] | + + + + + | [...] + | Overview: Lower back injury (From [facility]) 1980 1984 | + + + [...] + + | Coronary artery disease involving united ke[place]ow[place] coronary artery of | 12/21/2013 | | united [place] heart without angina pectoris | | + [...] attenuation cannot | | completely be ruled out.[facility] 12/25/13, shows non critical coronary [...] back in 3 days to | | [place] for an attempt of ablation under general [...] IMPLANTED GENERATOR | | Medtronic DDD ADDR01 [id number] 06/14/09 RV LEAD Medtronic Active | | Bipolar CapSureFix 4076 [id number] 06/14/09 A LEAD Medtronic | | Active Bipolar CapSurFix 4076 [id number] 06/14/09 | + + + +---+ | [...] | Heart Cath, 02/29/2012, LVEF is 65%, [facility], Daljit Gemini, | | [facility] Myocardial Gated Stress Test, 05/25/2009, EF 53 | | % during rest and 52% during stress. [facility], | | [place], [place].Persantine Sestamibi Stress Test, 06/14/2008, LVEF is | | 60%, [facility], Daljit MorenowanL 12/25/13, shows noncritical | | [...] Plan: Nonobstructive CAD noted | | on [facility] from 2013, no EKG changes, [...] + + | Mother | | | [place] | | | | (Age | | [...] W | | | | | | [place], | | | | | | [place] [address] | | | | | | [phone] | | | | | | | | +--------+ + + + + | 05/01/ | Procedure | Cardiology | | | | 2019 | visit | | | | +--------+ + + + + | 05/01/ | Office | Cardiology | Silvia, | | | 2019 | Visit | | PARISA Vernon W | | | | | | [place], | | | | | | [place] [address] | | | | | | [phone] | | | | | | | | +--------+ + + + + | 05/21/ | Implant | Cardiology | Daljit Singletary, | Remote Device | 2019 | Monitor | | MD Sim [place] | Interrogation | | | | | [facility], | (Primary Dx); | | | | | [place] [address] | Pacemaker; | | | | | [phone] | Sinoatrial node | | | | [...] 6 | Stent | Left: | CAMERON BARNES | | 09/27/ | [id number] | | 2232 - [id number]: | | Ureter | INCORPORATE | | 2020 | / | | Qty: 1 on 04/13/2019 by | | | D | | | /[id number] | | Matthew Uriarte MD at | | | | | | 57 | | [facility] | | | | | | | [facility] | | | | | | | [...] +--------+ +---------+--------+ | MEDICARE | MEDICA | [id number] | 01/21/20 | [phone] | | Medica | | | RE | | 01-Pre | 5 | | re | | | PART A | | sent | | | | | | AND B | | | | | | + +--------+ +--------+ +---------+--------+ | MEDICARE | MEDICA | [id number] | 01/21/20 | [phone] | | Medica | | | RE | | 01-Pre | 5 | | re | | | PART A | | sent | | | | | | AND B | | | | | | + +--------+ +--------+ +---------+--------+ | AARP | AARP | [id number] | | [phone] | | Indemn | | | MDCR | | 016-Pr | 0 | | ity | | | SUPPL | | esent | | | | + +--------+ +--------+ +---------+--------+ | AARP | AARP | [id number] | 11/22/19 | [phone] | | Indemn [...] Person | Self | [birth year] | [address] | | Kirk | cristo/Per | | 9 | [phone] | Dr [place] | | | roxanne | | | 8 (Home) | [address] | + +--------+ +--------+ + + | Moe Sanchez | Person | Self | [birth year] | | [address] | | Kirk | al/Fam | | 1960 | [phone] | Dr [place] | | | roxanne | | | 8 (Home) | [address] | + +--------+ +--------+ + + | Moe Sanchez | Third | Self | | | [address] | | Kirk | Alliance Party | | 1960 | [phone] | [address] [place] | | | [place] | | | [address] ([place]) | [address] | | | ity | | | | | + +--------+ +--------+ + + Advance Directives + + + + + | Type | Date Recorded | Patient | Explanation | | | | 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
--- OUTSIDE RECORDS SUMMARY | ~2020-04-15 | XMS | Encounter Summary ---
Demographics + + + | Address | [address] | | | [place] [address] | + + + | Home Phone [...] + +------+ + | Care Environmental Compliance Engineer Name | Role | Phone | [...] | | | | [place] | [address] | | | | | [address] | | | | | | [phone] | | | +--------+ + + + [...] W | | | | | | [place], | | | | | | [place] [address] | | | | | | [phone] | | | | | | | | +--------+ + + + + | 05/01/ | Procedure | Cardiology | | | | 2019 | visit | | | | +--------+ + + + + | 05/01/ | Office | Cardiology | Silvia, | | | 2019 | Visit | | PARISA Vernon W | | | | | | [place], | | | | | | [place] [address] | | | | | | [phone] | | | | | | | | +--------+ + + + + | 05/21/ | Implant | Cardiology | Daljit Singletary, | Remote Device | 2019 | Monitor | | MD [place] | Interrogation | | | | | [place], | (Primary Dx); | | | | | [place] [address] | Pacemaker; | | | | | [phone] | Sinoatrial node | | | | | | dysfunction (HCC) | | | | | | with symptomatic | | | | | | bradycardia | +--------+ + + + + documented as of this encounter Visit Diagnoses Not on filedocumented in this encounter"
--- OUTSIDE RECORDS SUMMARY | ~2020-04-15 | XMS | Encounter Summary ---
Demographics + + + | Address | [address] | | | [place] [address] | + + + | Home Phone [...] Team Providers + +------+ + | Care Typo Machine Operator Name | Role | Phone | + +------+ + PCP | Unavailable | + +------+ + Encounter Details +--------+ + + + + | Date | Type | Department | Care Team | Description | +--------+ + + + + | 11/05/ | [facility] | [facility] | Naresh Mckeon | | | 2009 | Encounter | MED CTR SLEEP | MD Chaya [address] | | | | | CENTER [address] | [place] | | | | | [place] | [place] [address] | | | | | [address] | [phone] | | | | | [phone] | | | +--------+ + + + [...] | | | | | | [place] [address] | | | | | | [phone] | | | | | | | [...] | | | | | | [place] [address] | | | | | | [phone] | | | | | | | | +--------+ + + + + | 05/21/ | Implant | Cardiology | Daljit Singletary, | Remote Device | 2019 | Monitor | | MD [address] [place] | Interrogation | | | | | [place], | (Primary Dx); | | | | | [place] [address] | Pacemaker; | | | | | [phone] | Sinoatrial node | | | | | | dysfunction (HCC) | | | | | | with symptomatic | | | | | | bradycardia | +--------+ + + + + documented as of this encounter Visit Diagnoses Not on filedocumented in this encounter"
--- OUTSIDE RECORDS SUMMARY | ~2020-04-15 | XMS | Encounter Summary ---
Demographics + + + | Address | [address] | | | [place] [address] | + + + | Home Phone [...] Providers + +------+ + | Care Internet And E Business Project Manager Name | Role | Phone | + +------+ + PCP | Unavailable | + +------+ + Encounter Details +--------+ + + + + | Date | Type | Department | Care Team | Description | +--------+ + + + + | 09/12/ | Hospital | [facility] | | | | 1993 | Encounter | [facility] | | | | | CENTER [address] | | | | | | [place] | | | | | | [address] | | | | | | [phone] | | | +--------+ + + + [...] | | | | | | [place] [address] | | | | | | [phone] | | | | | | | | +--------+ + + + + | 05/01/ | Procedure | Cardiology | | | | 2019 | visit | | | | +--------+ + + + + | 05/01/ | Office | Cardiology | [place], | | | 2019 | Visit | | [address] | | | | | | [place], | | | | | | [place] [address] | | | | | | [phone] | | | | | | | | +--------+ + + + + | 05/21/ | Implant | Cardiology | Daljit Singletary, | Remote Device | 2019 | Monitor | | [address] [place] | Interrogation | | | | | [place], | (Primary Dx); | | | | | [place] [address] | Pacemaker; | | | | | [phone] | Sinoatrial node | | | | | | dysfunction (HCC) | | | | | | with symptomatic | | | | | | bradycardia | +--------+ + + + + documented as of this encounter Visit Diagnoses Not on filedocumented in this encounter"
--- OUTSIDE RECORDS SUMMARY | ~2020-04-15 | XMS | Encounter Summary ---
Demographics + + + | Address | [address] | | | [place] [address] | + + + | Home Phone [...] Team Providers + +------+ + | Care Lay Out And Detail Drafter Name | Role | Phone | [...] | | CARDIOLOGY [address] | [address] [place] | | | | | [place], | [place], | | | | | [place] [address] | [place] [address] | | | | | [phone] | [phone] | | | | | | | [...] | | | | | | [place], | | | | | | [place] [address] | | | | | | [phone] | | | | | | | | +--------+ + + + + | 05/01/ | Procedure | Cardiology | | | | 2019 | visit | | | | +--------+ + + + + | 05/01/ | Office | Cardiology | Silvia, | | | 2019 | Visit | | [address] | | | | | | [place], | | | | | | [place] [address] | | | | | | [phone] | | | | | | | | +--------+ + + + + | 05/21/ | Implant | Cardiology | Daljit Singletary, | Remote Device | | 2019 | Monitor | | [facility] | Interrogation | | | | | [place], | (Primary Dx); | | | | | [place] [address] | Pacemaker; | | | | | [phone] | Sinoatrial node | | | | | | dysfunction (HCC) | | | | | | with symptomatic | | | | | | bradycardia | +--------+ + + + + documented as of this encounter Visit Diagnoses Not on filedocumented in this encounter"
--- OUTSIDE RECORDS SUMMARY | ~2020-04-15 | XMS | Encounter Summary ---
Demographics + + + | Address | [address] | | | [place] [address] | + + + | Home Phone [...] Providers + +------+ + | Care Special Agent Fbi Name | Role | Phone | + [...] | unspecified | MD Jacek | [address] | | | | | type | [address] | [place], | | | | | Unintentiona | [place] | [place] [address] | | | | | l weight | [place], [place] | Phone: | | | | | loss | [address] | [phone] | | | | | Procedures | Phone: | Fax: | | | | | [place] [facility] | [phone] | [phone] | | | | | INTRALUMINAL | Fax: | | | | | | | [phone] | | | | | | ESOPHAGUS-IL [...] (Primary Dx); | | | | [address] [place], [place] | [place] [address] | Unintentional weight | | | | [address] | [phone] | loss | | | | [phone] | | | +--------+ + + + [...] + documented as of this encounter Progress Lias Collins RN - 11/10/2019 8:39 AM PSTDr. [...] | | | | | | [place] [address] | | | | | | [phone] | | | | | | | | +--------+ + + + + | 05/01/ | Procedure | Cardiology | | | 2019 | visit | | | | +--------+ + + + + | 05/01/ | Office | Cardiology | Silvia, | | | 2019 | Visit | | [address] | | | | | | [place], | | | | | | [place] [address] | | | | | | [phone] | | | | | | | | +--------+ + + + + | 05/21/ | Implant | Cardiology | Daljit Singletary, | Remote Device | | 2019 | Monitor | | [address] | Interrogation | | | | | [place], | (Primary Dx); | | | | | [place] [address] | Pacemaker; | | | | | [phone] | Sinoatrial node | | | | [...]
--- OUTSIDE RECORDS SUMMARY | ~2020-04-15 | XMS | Encounter Summary ---
Demographics + + + | Address | [address] | | | [place] [address] | + + + | Home Phone [...] + +------+ + | Care Project Manager Name | Role | Phone [...] + + | 08/14/ | Telephone | [facility] | Michael Amanda, | Appointment | | 2012 | | GROUP IM[facility] [address] | DO [address] | | | | | [facility] | [place] | | | | | [place], [place] | [address] | | | | | [address] | | | | | | [phone] | | | +--------+ + + + [...] W | | | | | | [place], | | | | | | [place] [address] | | | | | | [phone] | | | | | | | | +--------+ + + + + | 05/01/ | Procedure | Cardiology | | | | 2019 | visit | | | | +--------+ + + + + | 05/01/ | Office | Cardiology | Silvia, | | | 2019 | Visit | | [address] | | | | | | [place], | | | | | | [place] [address] | | | | | | [phone] | | | | | | | | +--------+ + + + + | 05/21/ | Implant | Cardiology | Daljit Singletary, | Remote Device | 2019 | Monitor | | MD [address] | Interrogation | | | | | [place], | (Primary Dx); | | | | | [place] [address] | Pacemaker; | | | | | [phone] | Sinoatrial node | | | | | | dysfunction (HCC) | | | | | | with symptomatic | | | | | | bradycardia | +--------+ + + + + documented as of this encounter Visit Diagnoses Not on filedocumented in this encounter"
--- OUTSIDE RECORDS SUMMARY | ~2020-04-15 | XMS | Encounter Summary ---
Demographics + + + | Address | [address] | | | [place] [address] | + + + | Home Phone [...] + +------+ + | Care Fire Control Mechanic Name | Role | Phone | + +------+ + | Michael Amanda DO | PCP | | + +------+ + Encounter Details +--------+ + + + + | Date | Type | Department | Care Team | Description | +--------+ + + + + | 09/22/ | Hospital | [facility] | Bahman Gant MD | | | 2012 | Encounter | MED CTR XRAY [address] | [address] [place] | | | | | [place] | [address] [place], | | | | | [place] [address] | [place] [address] | | | | | [phone] | [phone] | | | | | | | [...] + + + +---------+ + + | [place]-3 Fatty | CAPS, one capsule by | [...] | | | | | | [place] [address] | | | | | | [phone] | | | | | | | | +--------+ + + + + | 05/01/ | Procedure | Cardiology | | | | 2019 | visit | | | | +--------+ + + + + | 05/01/ | Office | Cardiology | Silvia, | | | 2019 | Visit | | PARISA Vernon [address] | | | | | | [place], | | | | | | [place] [address] | | | | | | [phone] | | | | | | | | +--------+ + + + + | 05/21/ | Implant | Cardiology | Daljit Singletary, | Remote Device | 2019 | Monitor | | [facility] | Interrogation | | | | | [place], | (Primary Dx); | | | | | [place] [address] | Pacemaker; | | | | | [phone] | Sinoatrial node | | | | | | dysfunction (HCC) | | | | | | with symptomatic | | | | | | bradycardia | +--------+ + + + + documented as of this encounter Visit Diagnoses Not on filedocumented in this encounter"
--- OUTSIDE RECORDS SUMMARY | ~2020-04-15 | XMS | Encounter Summary ---
Demographics + + + | Address | [address] | | | [place] [address] | + + + | Home Phone [...] Providers + +------+ + | Care Clerk Telegraph Service Name | Role | Phone | + [...] + | 11/05/ | Telephone | [facility] | Daljit Singletary, | Chest Pain | | 2016 | | CARDIOLOGY [address] | MD [address] [place] | | | | | [place], | [place], | | | | | [place] [address] | [place] [address] | | | | | [phone] | [phone] | | | | | | | [...] W | | | | | | [place], | | | | | | [place] [address] | | | | | | [phone] | | | | | | | | +--------+ + + + + | 05/01/ | Procedure | Cardiology | | | | 2019 | visit | | | | +--------+ + + + + | 05/01/ | Office | Cardiology | Silvia, | | | 2019 | Visit | | PARISA Vernon [address] | | | | | | [place], | | | | | | [place] [address] | | | | | | [phone] | | | | | | | | +--------+ + + + + | 05/21/ | Implant | Cardiology | Daljit Singletary, | Remote Device | | 2019 | Monitor | | [facility] | Interrogation | | | | | [place], | (Primary Dx); | | | | | [place] [address] | Pacemaker; | | | | | [phone] | Sinoatrial node | | | | | | dysfunction (HCC) | | | | | | with symptomatic | | | | | | bradycardia | +--------+ + + + + documented as of this encounter Visit Diagnoses Not on filedocumented in this encounter"
--- OUTSIDE RECORDS SUMMARY | ~2020-04-15 | XMS | Encounter Summary ---
Demographics + + + | Address | [address] | | | [place] [address] | + + + | Home Phone [...] Providers + +------+ + | Care Hospitality Internship Name | Role | Phone | [...] [place] | | | | | | [address] | | | | | | [phone] | | | | | | | [...] | | | | | | [place] [address] | | | | | | [phone] | | | | | | | | +--------+ + + + + | 05/01/ | Procedure | Cardiology | | | | 2019 | visit | | | | +--------+ + + + + | 05/01/ | Office | Cardiology | Silvia, | | | 2019 | Visit | | PARISA [address] | | | | | | [place], | | | | | | [place] [address] | | | | | | [phone] | | | | | | | | +--------+ + + + + | 05/21/ | Implant | Cardiology | Daljit Singletary, | Remote Device | | 2019 | Monitor | | MD [address] [place] | Interrogation | | | | | [place], | (Primary Dx); | | | | | [place] [address] | Pacemaker; | | | | | [phone] | Sinoatrial node | | | | | | dysfunction (HCC) | | | | | | with symptomatic | | | | | | bradycardia | +--------+ + + + + documented as of this encounter Visit Diagnoses Not on filedocumented in this encounter"
--- OUTSIDE RECORDS SUMMARY | ~2020-04-15 | XMS | Encounter Summary ---
Demographics + + + | Address | [address] | | | [place] [address] | + + + | Home Phone [...] Providers + +------+ + | Care Chucking And Boring Machine Operator Name | Role | Phone [...] | 10/26/ | Refill | [facility] [place] | Kirk French | Medication Refill | | 2019 | | GASTROENTEROLOGY | MD Brea [address] | | | | | [address] [place] | [address] | | | | | [address] [place], [place] | [place] [address] | | | | | [address] | [phone] | | | | | [phone] | | | +--------+--------+ + + + [...] | | | | | | [place] [address] | | | | | | [phone] | | | | | | | | +--------+ + + + + | 05/01/ | Procedure | Cardiology | | | | 2019 | visit | | | | +--------+ + + + + | 05/01/ | Office | Cardiology | Silvia, | | | 2019 | Visit | | PARISA Vernon [address] | | | | | | [place], | | | | | | [place] [address] | | | | | | [phone] | | | | | | | | +--------+ + + + + | 05/21/ | Implant | Cardiology | Daljit Singletary, | Remote Device | 2019 | Monitor | | [facility] | Interrogation | | | | | [place], | (Primary Dx); | | | | | [place] [address] | Pacemaker; | | | | | [phone] | Sinoatrial node | | | | | | dysfunction (HCC) | | | | | | with symptomatic | | | | | | bradycardia | +--------+ + + + + documented as of this encounter Visit Diagnoses Not on filedocumented in this encounter"
--- OUTSIDE RECORDS SUMMARY | ~2020-04-15 | XMS | Encounter Summary ---
Demographics + + + | Address | [address] | | | [place] [address] | + + + | Home Phone [...] Providers + +------+ + | Care Advanced Developer Name | Role | Phone | [...] [facility] | [facility] [place] | | | 11/04/ | | [address] | [address] | | | [address] | | [place], [place] | | | | | | [address] | | | | | | [phone] | | | +--------+ + + + [...] + + + +---------+ + + | [place]-3 Fatty | CAPS, one capsule by | [...] | | | | | | [place] [address] | | | | | | [phone] | | | | | | | | +--------+ + + + + | 05/01/ | Procedure | Cardiology | | | | 2019 | visit | | | | +--------+ + + + + | 05/01/ | Office | Cardiology | Silvia | | | 2019 | Visit | | PARISA Vernon [address] | | | | | | [place], | | | | | | [place] [address] | | | | | | [phone] | | | | | | | | +--------+ + + + + | 05/21/ | Implant | Cardiology | Daljit Singletary, | Remote Device | | 2019 | Monitor | | [address] [place] | Interrogation | | | | | [place], | (Primary Dx); | | | | | [place] [address] | Pacemaker; | | | | | [phone] | Sinoatrial node | | | | [...] CHEST 2 VIEW FRONTAL | | AND QRLVGCL6111/03/2014 11:56 PM History: 54 years. Male. Acute [...] | | | | performed at [facility];888 | | LAB | | | | [address];[place] | | | | | | [address] | | | | + + + + + -+ | Red Blood | 4.97Comment: Testing | 4.20 - 5.70 | EXTERNAL | | | Cells | performed at [facility];888 | M/uL | LAB | | | Counted | [address];[place] | | | | | | [address] | | | | + + + + + -+ | Hemoglobin | 16.8Comment: Testing | 13.2 - 17.0 | EXTERNAL | | | | performed at [facility];888 | g/dL | LAB | | | | [address];[place] | | | | | | [address] | | | | + + + + + -+ | Hematocrit, | 48.2Comment: Testing | 39.0 - 50.0 % | EXTERNAL | | | POC | performed at [facility];888 | | LAB | | | | [address];[place] | | | | | | [address] | | | | + + + + + -+ | MCV | 97.1Comment: Testing | 80.0 - 100.0 fl | EXTERNAL | | | | performed at [facility];888 | | LAB | | | | [address];[place] | | | | | | [address] | | | | + + + + + -+ | MCH | 33.9Comment: Testing | 27.0 - 34.0 pg | EXTERNAL | | | | performed at [facility];888 | | LAB | | | | [address];[place] | | | | | | [address] | | | | + + + + + -+ | MCHC | 34.9Comment: Testing | 32.0 - 35.5 | EXTERNAL | | | | performed at [facility];888 | g/dL | LAB | | | | [address];[place] | | | | | | [address] | | | | + + + + + -+ | RDW-CV | 42.4Comment: Testing | 37 - 53 fl | EXTERNAL | | | | performed at [facility];888 | | LAB | | | | [address];[place] | | | | | | [address] | | | | + + + + + -+ | Platelet | 143 (L)Comment: Testing | 150 - 400 K/uL | EXTERNAL | | | Count | performed at [facility];888 | | LAB | | | Plasma | [address];[place] | | | | | | [address] | | | | + + + + + -+ | MPV | 9.0Comment: Testing | fl | EXTERNAL | | | | performed at [facility];888 | | LAB | | | | [address];[place] | | | | | | [address] | | | | + + + + + -+ | Differentia | AUTOMATEDComment: | | EXTERNAL | | | l Type | Testing performed at | | LAB | | | | [facility];[address] | | | | [address];[place] [address] | | | | + + + + + -+ | % Segmented | 61.6Comment: Testing | % | EXTERNAL | | | | performed at [facility];888 | | LAB | | | Neutrophils | [address];[place] | | | | | | [address] | | | | + + + + + -+ | % | 27.8Comment: Testing | % | EXTERNAL | | | Lymphocytes | performed at [facility];888 | | LAB | | | | [address];[place] | | | | | | [address] | | | | + + + + + -+ | % Monocytes | 8.7Comment: Testing | % | EXTERNAL | | | | performed at [facility];888 | | LAB | | | | [address];[place] | | | | | | [address] | | | | + + + + + -+ | % | 0.8Comment: Testing | % | EXTERNAL | | | Eosinophils | performed at [facility];888 | | LAB | | | | [address];[place] | | | | | | [address] | | | | + + + + + -+ | % Basophils | 1.1Comment: Testing | % | EXTERNAL | | | | performed at [facility];888 | | LAB | | | | [address];[place] | | | | | | [address] | | | | + + + + + -+ | Absolute | 5.4Comment: Testing | 1.9 - 7.4 K/uL | EXTERNAL | | | Segmented | performed at [facility];888 | | LAB | | | Neutrophils | [address];[place] | | | | | | [address] | | | | + + + + + -+ | Absolute | 2.4Comment: Testing | 1.0 - 3.9 K/uL | EXTERNAL | | | Lymphocytes | performed at [facility];888 | | LAB | | | | [address];[place] | | | | | | [address] | | | | + + + + + -+ | Absolute | 0.8Comment: Testing | 0 - 0.8 K/uL | EXTERNAL | | | Monocytes | performed at [facility];888 | | LAB | | | | [address];[place] | | | | | | [address] | | | | + + + + + -+ | Absolute | 0.1Comment: Testing | 0 - 0.5 K/uL | EXTERNAL | | | Eosinophils | performed at [facility];888 | | LAB | | | | [address];[place] | | | | | | [address] | | | | + + + + + -+ | Absolute | 0.1Comment: Testing | 0 - 0.1 K/uL | EXTERNAL | | | Basophils | performed at [facility];888 | | LAB | | | | [address];[place] | | | | | | [address] | | | | + + + + + -+ | RBC | SLIDE SCANNED, AGREES | | EXTERNAL | | | Morphology | WITH AUTOMATED | | LAB | | | | RESULTS.Comment: Testing | | | | | | performed at [facility];[address] | | | | | | [address];[place] | | | | | | [address] | | | | + + + + + -+ | Na | 140Comment: Testing | 135 - 143 | EXTERNAL | | | | performed at [facility];888 | mmol/L | LAB | | | | [address];[place] | | | | | | [address] | | | | + + + + + -+ | K | 3.9Comment: Testing | 3.5 - 4.9 | EXTERNAL | | | | performed at [facility];888 | mmol/L | LAB | | | | [address];[place] | | | | | | [address] | | | | + + + + + -+ | Cl | 107Comment: Testing | 99 - 109 mmol/L | EXTERNAL | | | | performed at [facility];888 | | LAB | | | | [address];[place] | | | | | | [address] | | | | + + + + + -+ | CO2 | 28Comment: Testing | 23 - 32 mmol/L | EXTERNAL | | | | performed at [facility];888 | | LAB | | | | [address];[place] | | | | | | [address] | | | | + + + + + -+ | Anion Gap | 9Comment: Testing | 5 - 20 mmol/L | EXTERNAL | | | | performed at [facility];888 | | LAB | | | | [address];[place] | | | | | | [address] | | | | + + + + + -+ | Glucose, | 97Comment: Testing | 65 - 99 mg/dL | EXTERNAL | | | Fasting | performed at [facility];888 | | LAB | | | | [address];[place] | | | | | | [address] | | | | + + + + + -+ | BUN | 14Comment: Testing | 8 - 25 mg/dL | EXTERNAL | | | | performed at [facility];888 | | LAB | | | | [address];[place] | | | | | | [address] | | | | + + + + + -+ | Creatinine | 0.98Comment: Testing | 0.70 - 1.30 | EXTERNAL | | | | performed at [facility];888 | mg/dL | LAB | | | | [address];[place] | | | | | | [address] | | | | + + + + + -+ | BUN/Creatin | 14Comment: Testing | | EXTERNAL | | | ine Ratio | performed at [facility];888 | | LAB | | | | [address];[place] | | | | | | [address] | | | | + + + + + -+ | Calcium | 8.8Comment: Testing | 8.5 - 10.2 | EXTERNAL | | | | performed at [facility];888 | mg/dL | LAB | | | | [address];[place] | | | | | | [address] | | | | + + + + + -+ | Protein, | 6.9Comment: Testing | 6.3 - 8.2 g/dL | EXTERNAL | | | Total | performed at [facility];888 | | LAB | | | | [address];[place] | | | | | | [address] | | | | + + + + + -+ | Albumin | 3.7Comment: Testing | 3.6 - 5.0 g/dL | EXTERNAL | | | | performed at [facility];888 | | LAB | | | | [address];[place] | | | | | | [address] | | | | + + + + + -+ | Globulin | 3.2Comment: Testing | 1.3 - 4.9 g/dL | EXTERNAL | | | | performed at [facility];888 | | LAB | | | | [address];[place] | | | | | | [address] | | | | + + + + + -+ | A/G Ratio | 1.2Comment: Testing | 1.0 - 2.4 | EXTERNAL | | | | performed at [facility];888 | | LAB | | | | [address];[place] | | | | | | [address] | | | | + + + + + -+ | Bilirubin | 0.9Comment: Testing | 0.1 - 1.5 mg/dL | EXTERNAL | | | Total | performed at [facility];888 | | LAB | | | | [address];[place] | | | | | | [address] | | | | + + + + + -+ | ALP, | 60Comment: Testing | 35 - 115 U/L | EXTERNAL | | | External | performed at [facility];888 | | LAB | | | | [address];[place] | | | | | | [address] | | | | + + + + + -+ | AST | 22Comment: Testing | 10 - 45 U/L | EXTERNAL | | | | performed at [facility];888 | | LAB | | | | [address];[place] | | | | | | [address] | | | | + + + + + -+ | ALT | 37Comment: Testing | 10 - 65 U/L | EXTERNAL | | | | performed at [facility];888 | | LAB | | | | [address];[place] | | | | | | [address] | | | | + + + [...] | | | | | at [facility];[address] | | | | | [address];[place] [address] | | | | + + + + + -+ | CK, Total | 103Comment: Testing | 55 - 400 U/L | EXTERNAL | | | | performed at [facility];888 | | LAB | | | | [address];[place] | | | | | | [address] | | | | + + + [...] | | | | performed at [facility];[address] | | | | | | [address];[place] | | | | | | [address] | | | | + + + + + -+ | aPTT, | 26Comment: Testing | 23 - 32 seconds | EXTERNAL | | | Patient | performed at [facility];888 | | LAB | | | | [address];[place] | | | | | | [address] | | | | + + + + + -+ | CK-MB | 2.9Comment: Testing | 0.5 - 3.6 ng/mL | EXTERNAL | | | | performed at [facility];888 | | LAB | | | | [address];[place] | | | | | | [address] | | | | + + + [...] | | | | performed at [facility];888 | uIU/mL | LAB | | | | [address];[place], [place] | | | | | | [address] | | | | + + + [...] | | | | performed at [facility];888 | | LAB | | | | [address];[place], [place] | | | | | | [address] | | | | + + + [...] | | | | performed at [facility] | | LAB | | | | [address];[place], [place] | | | | | | [address] | | | | + + + [...] | | | | | ONLY, -COMPUTER (925), | | | | | | pictures editor Michelle Butcher | | | | | | (29) on 11/04/2014 | | | | | | 6:28:13 AM | | | | + + + + + + + + | Specimen | + + | | + + + + + | Narrative | Performed At | + + + | Historically converted procedure from [facility] Epic environment | EXTERNAL LAB | + [...]
--- OUTSIDE RECORDS SUMMARY | ~2020-04-15 | XMS | Encounter Summary ---
Demographics + + + | Address | [address] | | | [place] [address] | + + + | Home Phone [...] Team Providers + +------+ + | Care Highway Design Engineer Name | Role | Phone [...] + + | 03/22/ | Refill | [facility] | Kirk French | Medication Refill | | 2019 | | [facility] | MD Brea [address] | | | | | [address] | | | | | [address] | [place] [address] | | | | | [place], [place] | [phone] | | | | | [address] | | | | | | [phone] | | | +--------+--------+ + + + [...] | | | | | | [place] [address] | | | | | | [phone] | | | | | | | | +--------+ + + + + | 05/01/ | Procedure | Cardiology | | | | 2019 | visit | | | | +--------+ + + + + | 05/01/ | Office | Cardiology | [place], | | | 2019 | Visit | | PARISA Vernon [address] | | | | | | [place], | | | | | | [place] [address] | | | | | | [phone] | | | | | | | | +--------+ + + + + | 05/21/ | Implant | Cardiology | Daljit Singletary, | Remote Device | | 2019 | Monitor | | [address] [facility] | Interrogation | | | | | [place], | (Primary Dx); | | | | | [place] [address] | Pacemaker; | | | | | [phone] | Sinoatrial node | | | | | | dysfunction (HCC) | | | | | | with symptomatic | | | | | | bradycardia | +--------+ + + + + documented as of this encounter Visit Diagnoses Not on filedocumented in this encounter"
--- OUTSIDE RECORDS SUMMARY | ~2020-04-15 | XMS | Encounter Summary ---
Demographics + + + | Address | [address] | | | [place] [address] | + + + | Home Phone [...] Providers + +------+ + | Care Track Oiler Name | Role | Phone | [...] | 01/30/ | Telephone | [facility] | Daljit Singletary, | Other | | 2019 | | CARDIOLOGY [address] | MD [address] | | | | | [place], | [place], | | | | | [place] [address] | [place] [address] | | | | | [phone] | [phone] | | | | | | | [...] | | | | | | [place] [address] | | | | | | [phone] | | | | | | | | +--------+ + + + + | 05/01/ | Procedure | Cardiology | | | | 2019 | visit | | | | +--------+ + + + + | 05/01/ | Office | Cardiology | Silvia, | | | 2019 | Visit | | APRISA Vernon [address] | | | | | | [place], | | | | | | [place] [address] | | | | | | [phone] | | | | | | | | +--------+ + + + + | 05/21/ | Implant | Cardiology | Daljit Singletary, | Remote Device | 2019 | Monitor | | [address] | Interrogation | | | | | [place], | (Primary Dx); | | | | | [place] [address] | Pacemaker; | | | | | [phone] | Sinoatrial node | | | | [...] 05/02/2019, Expires: | | | | | oneida coronary | 01/30/2020 | | | | | artery of oneida | | | | | | heart [...] 05/02/2019, Expires: | | | | | one[place] coronary | 01/31/2020 | | | | | artery of oneida | | | | | | heart without angina | | | | | | pectoris | | | | | | Hyperlipidemia, | | | | | | mixed | | + +------+--------+ + + documented as of this encounter Visit Diagnoses + + | Diagnosis | + + | Coronary artery disease involving oneida coronary artery of oneida heart without | | angina pectoris - Primary | + + | Hyperlipidemia, mixed Mixed hyperlipidemia | + + documented in this encounter"
--- OUTSIDE RECORDS SUMMARY | ~2020-04-15 | XMS | Encounter Summary ---
Demographics + + + | Address | [address] | | | [place] [address] | + + + | Home Phone [...] Providers + +------+ + | Care Electrical Superintendent Name | Role | Phone | [...] [place], [place] | | | | | [place] | | [address] Phone: | | | | | CYSTO/URETER | | [phone] | | | | | O | | Fax: | | | | | W/LITHOTRIPS | | [phone] | | | | | Y &INDWELL [...] + + | 04/13/ | Hospital | [facility] | Matthew Uriarte | Preoperative | | 2019 | Encounter | MED CTR OR INTRA OP | Dahl, MD [address] | clearance (Primary | | | | [address] | [address] [place] | Dx); Left ureteral | | | | [place] | [address] | calculus; Kidney | | | | [address] | | stones | | | | [phone] | | | +--------+ + + + [...] Care Everywhere.Kidney Stones, Treating: Ureteroscopic Stone Removal (Cam[place]onian)Stents, Ureteral (Cameroonian)documented in this encounter Medications at Time of [...] + + +---------+ + + | [place]-3 Fatty | CAPS, one capsule by | [...] | | | | | | | [place] coronary | | | | | | | artery of [place] | | | | | | | [...] | | | | | | [place] [address] | | | | | | [phone] | | | | | | | | +--------+ + + + + | 05/01/ | Procedure | Cardiology | | | | 2019 | visit | | | | +--------+ + + + + | 05/01/ | Office | Cardiology | Silvia, | | | 2019 | Visit | | PARISA Vernon [address] | | | | | | [place], | | | | | | [place] [address] | | | | | | [phone] | | | | | | | | +--------+ + + + + | 05/21/ | Implant | Cardiology | Daljit Singletary, | Remote Device | | 2019 | Monitor | | [address] | Interrogation | | | | | [place], | (Primary Dx); | | | | | [place] [address] | Pacemaker; | | | | | [phone] | Sinoatrial node | | | | [...] [facility] | | | | | | at:[phone]. | | | | + + + [...] test was developed and | | [facility] | | | | its performance | | - BKR | | | | characteristicsdetermine | | | | | | d by [facility]. It has not | | | | [...] + | Performed at: 01 - Arsh Coosa [address] [facility], | REFERENCE LAB | | [place], [place] [address] Bottom Filler: Yeny Rios MD, Phone: | ARSH CASTANON | | [phone] | | + + + + + + + + | Performing | Address | City/State/Zipcode | Phone Number | | Organization | | | | + + + + + | REFERENCE LAB | [address] | [place], [place] | [phone] | | ARSH CASTANON | [facility] | [address] | | + + + + + [...] + | [facility] | [address] | [place] | [phone] | | [facility] | | [address] | | | - [...] + | [facility] | [address] | [place] | [phone] | | [facility] | | [address] | | | - LABORATORY | | [...] + | [facility] | [address] | [place] | [phone] | | [facility] | | [address] | | | - LABORATORY | | [...] + | [facility] | [address] | [place] | [phone] | | [facility] | | [address] | | | - LABORATORY | | [...] | mL/min/1.73m2 | MICHELLE | | | PUERTO RICAN | RATE,ESTIMATED | | MEDICAL | | | | mL/min/1.70i4Gmbk than | | CENTER - | | [...] [address] | [place] | [phone] | | [facility] | | [address] | | | - LABORATORY | | [...] < 50, | | | Starting [facility] 04/13/19 at 0634, | | | [...] | | | | | | | mhkmai-kvz-ypswl use of at least | | | [...] day), | | | First dose on [facility] 04/13/19 at | | | 2030, [...]
--- OUTSIDE RECORDS SUMMARY | ~2020-04-15 | XMS | Encounter Summary ---
Demographics + + + | Address | [address] | | | [place] [address] | + + + | Home Phone [...] Providers + +------+ + | Care Bell Ringer Name | Role | Phone | + +------+ + PCP | Unavailable | + +------+ + Encounter Details +--------+ + + + + | Date | Type | Department | Care Team | Description | +--------+ + + + + | 09/24/ | [facility] | [facility] | Evan Gandara MD | | | 2005 | Encounter | MED CTR XRAY [address] | [address] [facility] | | | | | [place] | [place] | | | | | [place] [address] | [address] | | | | | [phone] | | | +--------+ + + + [...] W | | | | | | [place], | | | | | | [place] [address] | | | | | | [phone] | | | | | | | | +--------+ + + + + | 05/01/ | Procedure | Cardiology | | | | 2019 | visit | | | | +--------+ + + + + | 05/01/ | Office | Cardiology | Silvia, | | | 2019 | Visit | | PARISA Vernon [address] | | | | | | [place], | | | | | | [place] [address] | | | | | | [phone] | | | | | | | | +--------+ + + + + | 05/21/ | Implant | Cardiology | Daljit Singletary, | Remote Device | 2019 | Monitor | | MD [address] [place] | Interrogation | | | | | [place], | (Primary Dx); | | | | | [place] [address] | Pacemaker; | | | | | [phone] | Sinoatrial node | | | | | | dysfunction (HCC) | | | | | | with symptomatic | | | | | | bradycardia | +--------+ + + + + documented as of this encounter Visit Diagnoses Not on filedocumented in this encounter"
--- OUTSIDE RECORDS SUMMARY | ~2020-04-15 | XMS | Encounter Summary ---
Demographics + + + | Address | [address] | | | [place] [address] | + + + | Home Phone [...] Providers + +------+ + | Care Commercial Account Executive Name | Role | Phone [...] | 09/30/ | Telephone | [facility] [place] | Daljit Singletary, | Other (Danieljoao | | 2018 | | [place] [address] | [address] | remote) | | | | [place], | [place], | | | | | [place] [address] | [place] [address] | | | | | [phone] | [phone] | | | | | | | [...] | | | | | | [place] [address] | | | | | | [phone] | | | | | | | | +--------+ + + + + | 05/01/ | Procedure | Cardiology | | | | 2019 | visit | | | | +--------+ + + + + | 05/01/ | Office | Cardiology | [place], | | | 2019 | Visit | | PARISA Vernon [address] | | | | | | [place], | | | | | | [place] [address] | | | | | | [phone] | | | | | | | | +--------+ + + + + | 05/21/ | Implant | Cardiology | Daljit Singletary, | Remote Device | 2019 | Monitor | | MD [address] | Interrogation | | | | | [place], | (Primary Dx); | | | | | [place] [address] | Pacemaker; | | | | | [phone] | Sinoatrial node | | | | | | dysfunction (HCC) | | | | | | with symptomatic | | | | | | bradycardia | +--------+ + + + + documented as of this encounter Visit Diagnoses Not on filedocumented in this encounter"
--- OUTSIDE RECORDS SUMMARY | ~2020-04-15 | XMS | Encounter Summary ---
Demographics + + + | Address | [address] | | | [place] [address] | + + + | Home Phone [...] Providers + +------+ + | Care Fish Housekeeper Name | Role | Phone | + +------+ + PCP | Unavailable | + +------+ + Encounter Details +--------+ + + + + | Date | Type | Department | Care Team | Description | +--------+ + + + + | 01/20/ | [facility] | [facility] | Geri Angel, | | | 2009 | Encounter | MED CTR GENERIC OP | QUARRYING SPECIALIST [address] | | | | | CONV DEPT [address] | [address] [place] | | | | | [place], | [id number] | | | | | [place] [address] | | | | | | [phone] | | | +--------+ + + + [...] W | | | | | | [place], | | | | | | [place] [address] | | | | | | [phone] | | | | | | | | +--------+ + + + + | 05/01/ | Procedure | Cardiology | | | | 2019 | visit | | | | +--------+ + + + + | 05/01/ | Office | Cardiology | Silvia, | | | 2019 | Visit | | [address] | | | | | | [place], | | | | | | [place] [address] | | | | | | [phone] | | | | | | | | +--------+ + + + + | 05/21/ | Implant | Cardiology | Daljit Singletary, | Remote Device | 2019 | Monitor | | [address] [place] | Interrogation | | | | | [place], | (Primary Dx); | | | | | [place] [address] | Pacemaker; | | | | | [phone] | Sinoatrial node | | | | | | dysfunction (HCC) | | | | | | with symptomatic | | | | | | bradycardia | +--------+ + + + + documented as of this encounter Visit Diagnoses Not on filedocumented in this encounter"
--- OUTSIDE RECORDS SUMMARY | ~2020-04-15 | XMS | Encounter Summary ---
Demographics + + + | Address | [address] | | | [place] [address] | + + + | Home Phone [...] Providers + +------+ + | Care Manager Orange Name | Role | Phone | + [...] | | | pain | [address] | [address] | | | | | Procedures | [place] | [place], | | | | | [place] Nuclear | [place], [place] | [place] | | | | | Stress Test | [address] | [address] | | | | | (Vasodilator | Phone: | Phone: | | | | | ) CHG | [phone] | [phone] | | | | | MYOCARDIAL | Fax: | Fax: | | | | | SPECT | [phone] | [phone] | | | | | MULTIPLE | [...] 2012 | | CARDIOLOGY [address] | PIT BOSS [address] | interactions, chest | | | | [place], | [place], [place] | pain) | | | | [place] [address] | [address] | | | | | [phone] | | | +--------+ + + + [...] | | | | | | [place] [address] | | | | | | [phone] | | | | | | | [...] [place], | | | | | | [place] [address] | | | | | | [phone] | | | | | | | | +--------+ + + + + | 05/21/ | Implant | Cardiology | SunshinecherelleDaljit, | Remote Device | | 2019 | Monitor | | MD [address] [place] | Interrogation | | | | | [place], | (Primary Dx); | | | | | [place] [address] | Pacemaker; | | | | | [phone] | Sinoatrial node | | | | [...] [facility] | V[place]ON[place] | | Department [address] [facility] [place] | MICHELLE | | [ rep [address]] [ rep [facility] | | [facility]] Signed | - IMAGING | | | | | Patient Name: MOE GAY | | | Physician: JACKLYN : 1960 Age: 53 Sex: M Unit | | | #: [id number] Exam Date: 12/06/13 Location: | | | [facility] Report #: [id number] Page: | | | %(RAD)RES..mtdd.print.filter("pg") of %(RAD) | | | RES..mtdd.print.filter("tpg") | | | | | | Accession Number: [id number] | | | PERSANTINE SESTAMIBI STRESS TEST, [...] Transcribed Date/Time: 12/07/2013 08:18 | | | Insulation Blower: <<Signature on File>> | | | | | | Daljit Singletary MD [facility]12/07/13 1321 <Electronically signed | | | by Daljit Singletary MD, FAC, FACP, FASNanette, [facility]> Daljit | | | MD Gemini [facility] 12/07/13 0701 Insulation Blower: Jule Gamemedx | | | Cgoosabxtaulp67/16/14 0818 PARISA Garcia | | + + + + + + + + | Performing | Address | City/State/Zipcode | Phone Number | | Organization | | | | + + + + + | [facility] | [address] | [place] | [phone] | | [facility] | | [address] | | | - IMAGING | | | | + + + + + documented in this encounter Visit Diagnoses + + | Diagnosis | + + | Other chest pain - Primary | + + documented in this encounter
--- OUTSIDE RECORDS SUMMARY | ~2020-04-15 | XMS | Encounter Summary ---
Demographics + + + | Address | [address] | | | [place] [address] | + + + | Home Phone [...] Providers + +------+ + | Care Package Line Operator Name | Role | Phone [...] + + | 02/01/ | Telephone | [facility] | Silvia, | Other (unable to | | 2013 | | CARDIOLOGY [address] | PARISA [address] | take the isosorbide) | | | | [place], | [place], | | | | | [place] [address] | [place] [address] | | | | | [phone] | [phone] | | | | | | | [...] W | | | | | | [place], | | | | | | [place] [address] | | | | | | [phone] | | | | | | | | +--------+ + + + + | 05/01/ | Procedure | Cardiology | | | | 2019 | visit | | | | +--------+ + + + + | 05/01/ | Office | Cardiology | Silvia, | | | 2019 | Visit | | PARISA [address] | | | | | | [place], | | | | | | [place] [address] | | | | | | [phone] | | | | | | | | +--------+ + + + + | 05/21/ | Implant | Cardiology | Daljit Singletary, | Remote Device | | 2020 | Monitor | | [place] [address] [facility] | Interrogation | | | | | [place], | (Primary Dx); | | | | | [place] [address] | Pacemaker; | | | | | [phone] | Sinoatrial node | | | | | | dysfunction (HCC) | | | | | | with symptomatic | | | | | | bradycardia | +--------+ + + + + documented as of this encounter Visit Diagnoses + + | Diagnosis | + + | Coronary artery disease - Primary Coronary atherosclerosis of unspecified type of | | vessel, teller or graft | + + | Hypertension Unspecified essential hypertension | + + | Hyperlipidemia Other and unspecified hyperlipidemia | + + documented in this encounter"
--- OUTSIDE RECORDS SUMMARY | ~2020-04-15 | XMS | Encounter Summary ---
Demographics + + + | Address | [address] | | | [place] [address] | + + + | Home Phone [...] Providers + +------+ + | Care Air Quality Specialist Name | Role | Phone | [...] | CARDIOLOGY [address] | MD [address] [place] | | | | | [place], | [place], | | | | | [place] [address] | [place] [address] | | | | | [phone] | [phone] | | | | | | | [...] | | | | | | [place], | | | | | | [place] [address] | | | | | | [phone] | | | | | | | | +--------+ + + + + | 05/01/ | Procedure | Cardiology | | | | 2019 | visit | | | | +--------+ + + + + | 05/01/ | Office | Cardiology | Silvia, | | | 2019 | Visit | | [address] | | | | | | [place], | | | | | | [place] [address] | | | | | | [phone] | | | | | | | | +--------+ + + + + | 05/21/ | Implant | Cardiology | Daljit Singletary, | Remote Device | | 2020 | Monitor | | MD Sim [facility] | Interrogation | | | | | [place], | (Primary Dx); | | | | | [place] [address] | Pacemaker; | | | | | [phone] | Sinoatrial node | | | | | | dysfunction (HCC) | | | | | | with symptomatic | | | | | | bradycardia | +--------+ + + + + documented as of this encounter Visit Diagnoses Not on filedocumented in this encounter"
--- OUTSIDE RECORDS SUMMARY | ~2020-04-15 | XMS | Encounter Summary ---
Demographics + + + | Address | [address] | | | [place] [address] | + + + | Home Phone [...] Team Providers + +------+ + | Care Wage Conciliator Name | Role | Phone | + [...] + | 12/23/ | Telephone | [facility] | Daljit Singletary, | Other (question | | 2015 | | CARDIOLOGY [address] | [address] [place] | about diet | | | | [place], | [place], | medication) | | | | [place] [address] | [place] [address] | | | | | [phone] | [phone] | | | | | | | [...] | | | | | | [place] [address] | | | | | | [phone] | | | | | | | | +--------+ + + + + | 05/01/ | Procedure | Cardiology | | | | 2019 | visit | | | | +--------+ + + + + | 05/01/ | Office | Cardiology | Silvia | | | 2019 | Visit | | Janeen, VAULT MECHANIC [address] | | | | | | [place], | | | | | | [place] [address] | | | | | | [phone] | | | | | | | | +--------+ + + + + | 05/21/ | Implant | Cardiology | Daljit Singletary, | Remote Device | | 2020 | Monitor | | [address] | Interrogation | | | | | [place], | (Primary Dx); | | | | | [place] [address] | Pacemaker; | | | | | [phone] | Sinoatrial node | | | | | | dysfunction ([facility]) | | | | | | with symptomatic | | | | | | bradycardia | +--------+ + + + + documented as of this encounter Visit Diagnoses Not on filedocumented in this encounter"
--- OUTSIDE RECORDS SUMMARY | ~2020-04-15 | XMS | Encounter Summary ---
Demographics + + + | Address | [address] | | | [place] [address] | + + + | Home Phone [...] Team Providers + +------+ + | Care Colloid Mill Operator Name | Role | Phone [...] | | | | exertion | | [place] | | | | | Chest pain | | [place], [place] | | | | | on exertion | | [address] | | | | | | | Phone: | | | | | | | [phone] | | | | | | | Fax: | | | | | | | [phone] | +--------+--------+ + + + + Encounter Details +--------+ + + + + | Date | Type | Department | Care Team | Description | +--------+ + + + + | 04/27/ | Emergency [facility] | Martell Hart | Chest pain on | | 2014 - | | [facility] | Sanjay Palacios MD | exertion (Primary | | | | [address] [place] | [address] | Dx); Dyspnea on | | 03/20/ | | [place] [address] | [place], [place] | exertion; Essential | | 2014 | | [phone] | [address] | hypertension; Acute | | | | | | chest pain; | | | | | Parth Kraft, | Dizziness, | | | | | [address] | nonspecific; Mixed | | | | | [place], [place] | anxiety depressive | | | | | [address] | disorder; PUD | | | | | [phone] | (peptic ulcer | | | | [...] be different f rom the original. [facility] DISCHARGE SUMMARY Pt. Name/Age/: Moe Sanchez [...] 911 aka: NITROSTAT ONE TOUCH DELICA LANCETS [facility] Check glucose as needed for hypoglycemia OSTEO [...] Daily. to reduce urinary frequency - Lot #[id number], exp 07/2016 aka: RAPAFLO UNCODED MEDICATION - [...] hospital follow up Contact information: [address] [address] Call PARISA Russell. Specialty: Nurse Practitioner Why: As needed Contact information: [address] [place] [address] Condition: Patient being discharged with condition improved. Diet: Heart healthy, avoid acidic drinks and foods, spicy foods, too much coffee. Greater than 30 minutes were spent on discharge and coordination of post-hospital care. Electronically signed by: Thierry Fregoso DO, 03/20/2015 11:22 [facility] Portions of this chart may have been created with [employer] voice recognition software. Occasi onal wrong-word [...] afford the prescribed medication, you can try uhlf-cku-zrjwddo acid blockers, such as Pepcid AC, Tagamet, [...] or as directed by your healthcare provider [phone] [employer] [address] [place] [address]. All righ ts reserved. This information is [...] + + + +---------+ + + | [place]-3 Fatty | CAPS, one capsule by | [...] | | | | | | | #[id number], exp 07/2016 | | | | | [...] - 03/19/2015 10:[address] [facility] PROGRESS NOTE Patient: Moe Sanchez : 1960: Age: 55 y.o. MedRec: [id number] PCP: Kirk French Admission date: 03/18/2015 Hospital [...] 1708 03/18/15 1528 TROPONINI <0.01 <0.01 0.01 [facility] ECHOCARDIOGRAM REPORT STUDY DATE: 03/19/2015 PATIENT [...] changes. No results for input(s): PHART, PO2ART, RSA5LKL, AWU2SSJ, BEART, G7LJDWNQ in the last 168 h ours. No results for input(s): SPECSOURCE, PHPOCB, HCO3, TCO2, BEART, BE, YPVJ7UFV in the last 16 8 hours. Invalid input(s): QPIXG8PT, YZQD9XM Point of care glucose: No results for [...] minutes today. Thierry Fregoso DO 03/19/2015 22:09 [facility] Portions of this chart may have been created with [employer] voice recognition software. Occasi onal wrong-word or sound-alike substitutions may have occurred due to the inherent granger itations of voice recognition software. Please read the chart carefully and recognize, using context, where these substitutions have occurred Belén Cho RN - 03/19/2015 11:03 AM [id number] Report given to Marlen morejon who is [...] | | | | | | [place] [address] | | | | | | [phone] | | | | | | | [...] | | | | | | [place] [address] | | | | | | [phone] | | | | | | | | +--------+ + + + + | 05/21/ | Implant | Cardiology | Daljit Singletary, | Remote Device | | 2020 | Monitor | | MD [address] [facility] | Interrogation | | | | | [place], | (Primary Dx); | | | | | [place] [address] | Pacemaker; | | | | | [phone] | Sinoatrial node | | | | [...] Performed At | + + + | [facility] ECHOCARDIOGRAM REPORT | | | STUDY [...] | Signed by: Daljit Singletary MD [facility] 03/19/2015 15:44 | | | Shearer Screen Measurer And Trimmer: Dewey Valdez RDMS | | + + [...] | | | | | | [employer] | | | | | [...] Performing | Address | City/State/[facility] | Phone Number | | Organization | | | | + + + + + | [facility] | [address] | [place] | [phone] | | [facility] | | [address] | | | - LABORATORY | | [...] mL/min/1.73m2 | [facility] | | | [place] [facility] | RATE,ESTIMATED | | MEDICAL | | | | mL/min/1.86x9Gwfs than | | CENTER - | | [...] + | [facility] | [address] | [place], [place] | [phone] | | [facility] | | [address] | | | - LABORATORY | | [...] [address] | [place] | [phone] | | [facility] | | [address] | | | - LABORATORY | | [...] | | | | | | [employer] | | | | | [...] Performing | Address | City/State/[facility] | Phone Number | | Organization | | | | + + + + + | [facility] | [address] | [place] | [phone] | | [facility] | | [address] | | | - LABORATORY | | [...] | [address] | [place] | [phone] | | [facility] | | [address] | | | - LABORATORY | | [...] + | [facility] | [address] | [place] | [phone] | | [facility] | | [address] | | | - LABORATORY | | [...] [address] | [place] | [phone] | | [facility] | | [address] | | | - LABORATORY | | [...] ST. | [address] | [place], [place] | [phone] | | [facility] | | [address] | | | - LABORATORY | | [...] | | | | | | [employer] | | | | | [...] [address] | [place] | [phone] | | [facility] | | [address] | | | - LABORATORY | | [...] + | [facility] | [address] | [place], [place] | [phone] | | [facility] | | [address] | | | - LABORATORY | | [...] mL/min/1.73m2 | [facility] | | | [place] | RATE,ESTIMATED | | MEDICAL | | | | mL/min/1.84s8Dsnm than | | CENTER - | | [...] + | [facility] | [address] | [place] | [phone] | | [facility] | | [address] | | | - LABORATORY | | [...] [address] | [place] | [phone] | | [facility] | | [address] | | | - LABORATORY | | [...]
--- OUTSIDE RECORDS SUMMARY | ~2020-04-15 | XMS | Encounter Summary ---
Demographics + + + | Address | [address] | | | [place] [address] | + + + | Home Phone [...] Providers + +------+ + | Care Instructor Ground Services Name | Role | Phone | [...] | | CARDIOLOGY [address] | PARISA eVrnon [address] | | | | | [place], | [place], | | | | | [place] [address] | [place] [address] | | | | | [phone] | [phone] | | | | | | | [...] W | | | | | | [place], | | | | | | [place] [address] | | | | | | [phone] | | | | | | | | +--------+ + + + + | 05/01/ | Procedure | Cardiology | | | | 2019 | visit | | | | +--------+ + + + + | 05/01/ | Office | Cardiology | Silvia, | | | 2019 | Visit | | PARISA Vernon W | | | | | | [place], | | | | | | [place] [address] | | | | | | [phone] | | | | | | | | +--------+ + + + + | 05/21/ | Implant | Cardiology | Daljit Singletary, | Remote Device | 2019 | Monitor | | MD [address] [place] | Interrogation | | | | | [place], | (Primary Dx); | | | | | [place] [address] | Pacemaker; | | | | | [phone] | Sinoatrial node | | | | [...] Comment | + + | [facility] | + + + +---------+ + + [...] Comment | + + | [facility] | + + + +---------+ + + [...] Comment | + + | [facility] | + + + +---------+ + + [...]
--- OUTSIDE RECORDS SUMMARY | ~2020-04-15 | XMS | Encounter Summary ---
Demographics + + + | Address | [address] | | | [place] [address] | + + + | Home Phone [...] Team Providers + +------+ + | Care Managing Broker Name | Role | Phone | [...] type ER | [address] | [address] | | | | | FUP | [place] | [place], | | | | | Procedures | [place], [place] | [place] [address] | | | | | FUP - SUW & | [address] | Phone: | | | | | EVM PT, LAST | Phone: | [phone] | | | | | SEEN | [phone] | Fax: | | | | | 08-24-18 | Fax: | [phone] | | | | | | [phone] | | +--------+ + + + + [...] | | | | CENTER [address] [place] | [address] [place] | (Primary Dx) | | | | [place], [place] | [place] [address] | | | | | [address] | [phone] | | | | | [phone] | | | +--------+ + + + [...] through Care Everywhere.Chest Pain, Unc ertain Cause (Slovak)documented in this encounter Medications at [...] + + + +---------+ + + | [place]-3 Fatty | CAPS, one capsule by | [...] | | | | | | [place] [address] | | | | | | [phone] | | | | | | | | +--------+ + + + + | 05/01/ | Procedure | Cardiology | | | | 2019 | visit | | | | +--------+ + + + + | 05/01/ | Office | Cardiology | Silvia, | | | 2019 | Visit | | PARISA Vernon [address] | | | | | | [place], | | | | | | [place] [address] | | | | | | [phone] | | | | | | | | +--------+ + + + + | 05/21/ | Implant | Cardiology | Daljit Singletary, | Remote Device | 2019 | Monitor | | [address] [place] | Interrogation | | | | | [place], | (Primary Dx); | | | | | [place] [address] | Pacemaker; | | | | | [phone] | Sinoatrial node | | | | [...] | | | | ANGELA MARADIAGA MD ([id number]) | | | | | | on [...] | | | | | | [employer] | | | | | [address] | [place] | [phone] | | [facility] | | [address] | | | - LABORATORY | | [...] [address] | [place] | [phone] | | [facility] | | [address] | | | - LABORATORY | | [...] - 1.030 | [facility] | | | [place], | | | [facility] | | [...] [address] | [place] | [phone] | | [facility] | | [address] | | | - LABORATORY | | [...] [address] | [place] | [phone] | | [facility] | | [address] | | | - LABORATORY | | [...] [address] | [place] | [phone] | | [facility] | | [address] | | | - LABORATORY | | [...] | | | | | | [employer] | | | | | [...] [address] | [place] | [phone] | | [facility] | | [address] | | | - LABORATORY | | [...] | 0.96 | 0.60 - 1.30 | [facility] | | | | | mg/dL | [...] mL/min/1.73m2 | [facility] | | | ERITREAN | RATE,ESTIMATED | | MEDICAL | | | | mL/min/1.06q4Ffzy than | | CENTER - | | [...] [address] | [place] | [phone] | | [facility] | | [address] | | | - LABORATORY | | [...] + | [facility] | [address] | [place] | [phone] | | [facility] | | [address] | | | - LABORATORY | | [...] | | | | HIREN WINKLER, ANGELA ([id number]) | | | | | | on [...]
--- OUTSIDE RECORDS SUMMARY | ~2020-04-15 | XMS | Encounter Summary ---
Demographics + + + | Address | [address] | | | [place] [address] | + + + | Home Phone [...] Providers + +------+ + | Care Manager Gyn Name | Role | Phone | + [...] + + | 12/29/ | Office | [facility] | [place], | Ascending thoracic | | 2017 | Visit | CARDIOLOGY [address] | PARISA Vernon [address] | aortic aneurysm | | | | [place], | [place], | (HCC) (Primary Dx); | | | | [place] [address] | [place] [address] | Coronary artery | | | | [phone] | [phone] | disease involving | | | | | | nightmute coronary | | | | | | artery of nightmute | | | | | | heart [...] from the origin al. PATIENT NAME: Moe Snachez : 1960: AGE: 56 y.o. PRIMARY CARE: Kirk French MD OUTPATIENT FOLLOW UP VISIT Date of Service: 12/29/2016 HISTORY OF PRESENT ILLNESS: Moe Sanchez is a 56 y.o. 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 Since that time, he went to the ER in [facility] with chest pain at the end [...] Preventative health care Coronary artery disease involving nightmute coronary artery of nightmute heart without angina pectoris Cannabis abuse, daily [...] 3RD DOSE, CALL 911 100 tablet 3 [place]-3 Fatty Acids (SALMON OIL-1000 PO) CAPS, one capsule by mouth daily twice daily ONE TOUCH DELICA LANCETS [facility] Check glucose as needed for hypoglycemia 100 [...] was found Confirmed by SYDNI SINGLETARY MD ([id number]) on 06/23/2016 2:08:15 PM LAB RESULTS reviewed during visit today primarily from [facility]: LIPID Lab Results Component Value Date [...] PLTEX 129* 05/12/2016 I reviewed records from [facility] for office visit on 09/01/2016 which [...] He is in class I of the [place] [employer] functional class. On physical examination there are no signs of fl uid overload. 2. Non-critical Coronary artery disease involving nightmute coronary a rtery of nightmute heart without angina pectoris: A. Normal exercise [...] arrhythmia performed by Dr. Gambino at [facility] on 01/30/2013. Patient had spontaneous [...] to go back in 3 days to [place] for an attempt of ablation under general [...] is a normal stable device function. Estimated NoteWagoni ng battery longevity is 5 years.. 5. [...] this chart may have been created with [employer] voice recognition software. Occasi onal wrong-word or [...] W | | | | | | [place], | | | | | | [place] [address] | | | | | | [phone] | | | | | | | | +--------+ + + + + | 05/01/ | Procedure | Cardiology | | | | 2019 | visit | | | | +--------+ + + + + | 05/01/ | Office | Cardiology | Silvia | | | 2019 | Visit | | PARISA Vernon W | | | | | | [place], | | | | | | [place] [address] | | | | | | [phone] | | | | | | | | +--------+ + + + + | 05/21/ | Implant | Cardiology | Sydni Singletary, | Remote Device | 2019 | Monitor | | MD Sim [place] | Interrogation | | | | | [place], | (Primary Dx); | | | | | [place] [address] | Pacemaker; | | | | | [phone] | Sinoatrial node | | | | [...] + + | Coronary artery disease involving nightmute coronary artery of nightmute heart without | | angina pectoris | + + | Essential hypertension with goal blood pressure less than 130/80 | + + | Hyperlipidemia, mixed Mixed hyperlipidemia | + + documented in this encounter
--- OUTSIDE RECORDS SUMMARY | ~2020-04-15 | XMS | Encounter Summary ---
Demographics + + + | Address | [address] | | | [place] [address] | + + + | Home Phone [...] Team Providers + +------+ + | Care Jet Blade Polisher Name | Role | Phone | [...] + + | 11/03/ | Refill | [facility] | Kirk French | Medication Refill | | 2019 | | [facility] | MD Brea [address] | | | | | [facility] [address] | [address] | | | | | [address] | [place] [address] | | | | | [place], [place] | [phone] | | | | | [address] | | | | | | [phone] | | | +--------+--------+ + + + [...] | | | | | | [place] [address] | | | | | | [phone] | | | | | | | [...] | | | | | | [place] [address] | | | | | | [phone] | | | | | | | | +--------+ + + + + | 05/21/ | Implant | Cardiology | Daljit Singletary, | Remote Device | | 2019 | Monitor | | [address] [facility] | Interrogation | | | | | [place], | (Primary Dx); | | | | | [place] [address] | Pacemaker; | | | | | [phone] | Sinoatrial node | | | | | | dysfunction (HCC) | | | | | | with symptomatic | | | | | | bradycardia | +--------+ + + + + documented as of this encounter Visit Diagnoses Not on filedocumented in this encounter"
--- OUTSIDE RECORDS SUMMARY | ~2020-04-15 | XMS | Encounter Summary ---
Demographics + + + | Address | [address] | | | [place] [address] | + + + | Home Phone [...] Team Providers + +------+ + | Care Audio/Video Engineer Name | Role | Phone | [...] [place] | | | | | | [address] | | | | | | [phone] | | | +--------+ + + + [...] W | | | | | | [place], | | | | | | [place] [address] | | | | | | [phone] | | | | | | | | +--------+ + + + + | 05/01/ | Procedure | Cardiology | | | | 2019 | visit | | | | +--------+ + + + + | 05/01/ | Office | Cardiology | Silvia, | | | 2019 | Visit | | [address] | | | | | | [place], | | | | | | [place] [address] | | | | | | [phone] | | | | | | | | +--------+ + + + + | 05/21/ | Implant | Cardiology | Daljit Singletary, | Remote Device | | 2019 | Monitor | | [facility] | Interrogation | | | | | [address] [place], | (Primary Dx); | | | | | [place] [address] | Pacemaker; | | | | | [phone] | Sinoatrial node | | | | | | dysfunction (HCC) | | | | | | with symptomatic | | | | | | bradycardia | +--------+ + + + + documented as of this encounter Visit Diagnoses Not on filedocumented in this encounter"
--- OUTSIDE RECORDS SUMMARY | ~2020-04-15 | XMS | Encounter Summary ---
Demographics + + + | Address | [address] | | | [place] [address] | + + + | Home Phone [...] Team Providers + +------+ + | Care Taker Off Braker Machine Name | Role | Phone | [...] + + | 09/01/ | Office | [facility] | Silvia, | Ascending thoracic | | 2015 | Visit | CARDIOLOGY [address] | [address] | aortic aneurysm | | | | [place], | [place], | ([facility]) (Primary Dx); | | | | [place] [address] | [place] [address] | Coronary artery | | | | [phone] | [phone] | disease involving | | | | | | curyung coronary | | | | | | artery of curyung | | | | | | heart [...] of non-critical coronary artery d isease involving curyung coronary artery of curyung heart without angina pectoris, essential h ypertension, [...] episode of chest pain while nelly ng [facility], so he took some sublingual [...] Preventative health care Coronary artery disease involving curyung coronary artery of curyung heart without angina pectoris Cannabis abuse, daily [...] 3rd dose, call 911 100 tablet 3 [place]-3 Fatty Acids (SALMON OIL-1000 PO) CAPS, one capsule by mouth daily twice daily ONE TOUCH DELICA LANCETS [facility] Check glucose as needed [...] PLTEX 129* 05/12/2016 I reviewed records from [facility] for office visit on 06/2016 [facility] ch is summarized in the HPI. [...] He is in class II of the [place] [employer] oc[employer] functional class. On physical examination there are no signs of fluid overload. The plan will be to lose weight, modify portion control, start exercising, limit sodium in take and we will start losartan 25 mg once a day with a close monitoring of blood pressure. 2. Non-critical Coronary artery disease involving curyung coronary artery of curyung heart [facility] angina pectoris: A. Normal exercise sestamibi [...] to go back in 3 days to [place] for an attempt of ablation under [...] this chart may have been created with [employer] voice recognition software. Occasi onal wrong-word or [...] | | | | | | [place] [address] | | | | | | [phone] | | | | | | | [...] | | | | | | [place] [address] | | | | | | [phone] | | | | | | | | +--------+ + + + + | 05/21/ | Implant | Cardiology | Daljit Singletary, | Remote Device | | 2019 | Monitor | | [address] [place] | Interrogation | | | | | [place], | (Primary Dx); | | | | | [place] [address] | Pacemaker; | | | | | [phone] | Sinoatrial node | | | | [...] + + | Coronary artery disease involving curyung coronary artery of curyung heart without | | angina pectoris | + + | Essential hypertension with goal blood pressure less than 130/80 | + + | Hyperlipidemia, mixed Mixed hyperlipidemia | + + documented in this encounter
--- OUTSIDE RECORDS SUMMARY | ~2020-04-15 | XMS | Encounter Summary ---
Demographics + + + | Address | [address] | | | [place] [address] | + + + | Home Phone [...] Providers + +------+ + | Care Educational Psychology Professor Name | Role | Phone | + +------+ + | Kirk French MD | PCP | | + +------+ + Encounter Details +--------+ + + + + | Date | Type | Department | Care Team | Description | +--------+ + + + + | 05/04/ | Documentati | [facility] | Emmanuel Dnaiel MD | | | 2019 | on | GASTROENTEROLOGY | [address] [place] | | | | | [address] [place] | [address] [place], [place] | | | | | [address] [place], [place] | [address] | | | | | [address] | | | | | | [phone] | | | +--------+ + + + [...] | | | | | | [place] [address] | | | | | | [phone] | | | | | | | | +--------+ + + + + | 05/01/ | Procedure | Cardiology | | | | 2019 | visit | | | | +--------+ + + + + | 05/01/ | Office | Cardiology | Silvia, | | | 2019 | Visit | | [address] | | | | | | [place], | | | | | | [place] [address] | | | | | | [phone] | | | | | | | | +--------+ + + + + | 05/21/ | Implant | Cardiology | Daljit Singletary, | Remote Device | | 2019 | Monitor | | [address] [facility] | Interrogation | | | | | [address] [place], | (Primary Dx); | | | | | [place] [address] | Pacemaker; | | | | | [phone] | Sinoatrial node | | | | | | dysfunction (HCC) | | | | | | with symptomatic | | | | | | bradycardia | +--------+ + + + + documented as of this encounter Visit Diagnoses Not on filedocumented in this encounter"
--- OUTSIDE RECORDS SUMMARY | ~2020-04-15 | XMS | Encounter Summary ---
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 This means it will be harder [...] or, difficulty with vision, speech or walking [address] [place] [address]. All rights reserve d. This information is [...] double vision. He was evaluated by Dr Armstrong and had a normal eye exam, nor [...] tablet by mouth Daily. 30 tablet 6 [place]-3 Fatty Acids (SALMON OIL-1000 PO) CAPS, one [...] | | | | | | [place] [address] | | | | | | [phone] | | | | | | | | +--------+ + + + + | 05/01/ | Procedure | Cardiology | | | 2019 | visit | | | | +--------+ + + + + | 05/01/ | Office | Cardiology | Silvia, | | | 2019 | Visit | | [address] | | | | | | [place], | | | | | | [place] [address] | | | | | | [phone] | | | | | | | | +--------+ + + + + | 05/21/ | Implant | Cardiology | Daljit Singletary, | Remote Device | 2019 | Monitor | | [place] [facility] | Interrogation | | | | | [place], | (Primary Dx); | | | | | [place] [address] | Pacemaker; | | | | | [phone] | Sinoatrial node | | | | [...] + | [facility] | [address] | [place] | [phone] | | [facility] | | [address] | | | - LABORATORY | | | | + + + + + | [facility] | [address] | [place] | | | [facility] | | [address] | | | - LABORATORY | | [...] + | [facility] | [address] | [place] | [phone] | | [facility] | | [address] | | | - LABORATORY | | | | + + + + + | [facility] | [address] | [place], [place] | | | [facility] | | [address], [place] | | | - LABORATORY | [...] + | [facility] | [address] | [place] | [phone] | | [facility] | | [address] | | | - LABORATORY | | | | + + + + + | [facility] | [address] | [place] | | | [facility] | | [address] [place] [address] | | | - LABORATORY | | | | + + + + + documented in this encounter Visit Diagnoses + + | Diagnosis | + + | Diplopia - Primary | + + | Symptomatic PVCs Other premature beats | + + | Hypertension Unspecified essential hypertension | + + documented in this encounter
--- OUTSIDE RECORDS SUMMARY | ~2020-04-15 | XMS | Encounter Summary ---
Demographics + + + | Address | [address] | | | [place] [address] | + + + | Home Phone [...] Providers + +------+ + | Care Disease And Insect Control Boss Name | Role | Phone | [...] 2012 | | Conversion Location | [address] | | | | | [facility]ACIE [facility] | [address] [place], | | | | | [place], [place] | [place] [address] | | | | | [address] | [phone] | | | | | [phone] | | | +--------+ + + + [...] | | | | | | [place] [address] | | | | | | [phone] | | | | | | | [...] | | | | | | [place] [address] | | | | | | [phone] | | | | | | | | +--------+ + + + + | 05/21/ | Implant | Cardiology | Daljit Singletary, | Remote Device | 2019 | Monitor | | [address] | Interrogation | | | | | [place], | (Primary Dx); | | | | | [place] [address] | Pacemaker; | | | | | [phone] | Sinoatrial node | | | | | | dysfunction (HCC) | | | | | | with symptomatic | | | | | | bradycardia | +--------+ + + + + documented as of this encounter Visit Diagnoses Not on filedocumented in this encounter"
--- OUTSIDE RECORDS SUMMARY | ~2020-04-15 | XMS | Encounter Summary ---
Demographics + + + | Address | [address] | | | [place] [address] | + + + | Home Phone [...] Providers + +------+ + | Care Concrete Pipe Machine Operator Name | Role | Phone | + +------+ + | Michael Amanda DO | PCP | | + +------+ + Encounter Details +--------+ + + + + | Date | Type | Department | Care Team | Description | +--------+ + + + + | 06/26/ | Hospital | [facility] | Michael Amanda, | Diplopia | | 2012 | Encounter | MED CTR LABORATORY | DO [address] | | | | | [address] [place] | [place], [place] | | | | | [place], [place] | [address] | | | | | [address] | | | | | | [phone] | | | +--------+ + + + [...] W | | | | | | [place], | | | | | | [place] [address] | | | | | | [phone] | | | | | | | | +--------+ + + + + | 05/01/ | Procedure | Cardiology | | | | 2019 | visit | | | | +--------+ + + + + | 05/01/ | Office | Cardiology | Silvia, | | | 2019 | Visit | | [address] | | | | | | [place], | | | | | | [place] [address] | | | | | | [phone] | | | | | | | | +--------+ + + + + | 05/21/ | Implant | Cardiology | Daljit Singletary, | Remote Device | | 2020 | Monitor | | MD [address] [facility] | Interrogation | | | | | [place], | (Primary Dx); | | | | | [place] [address] | Pacemaker; | | | | | [phone] | Sinoatrial node | | | | [...] | mg/L indicate possible | | [facility] | | | | infection, [...] [address] | [place] | [phone] | | [facility] | | [address] | | | - LABORATORY | | | | + + + + + | [facility] | [address] | [place], [place] | | | [facility] | | [address], [facility] | | | - LABORATORY [...] on the Javid | uIU/mL | [facility] | | | | [facility] | | MEDICAL | | | [...] + | [facility] | [address] | [place] | [phone] | | [facility] | | [address] | | | - LABORATORY | | | | + + + + + | [facility] | [address] | [place], [place] | | | [facility] | | [address] [place] [address] | | | - LABORATORY | | [...] + | [facility] | [address] | [place] | [phone] | | [facility] | | [address] | | | - LABORATORY | | | | + + + + + | [facility] | [address] | [place], [place] | | | [facility] | | [address], [facility] | | | - LABORATORY [...] + + | Performing | Address | City/[facility]/Zipcode | Phone Number | | Organization | | | | + + + + + | [facility] | [address] | [place], [place] | [phone] | | [facility] | | [address] | | | - LABORATORY | | | | + + + + + | [facility] | [address] | [place] | | | [facility] | | [address], [facility] | | | - LABORATORY [...] + | [facility] | [address] | [place] | [phone] | | [facility] | | [address] | | | - LABORATORY | | | | + + + + + | [facility] | [address] | [place], [place] | | | [facility] | | [address] [place] [address] | | | - LABORATORY | | [...] + | [facility] | [address] | [place] | [phone] | | [facility] | | [address] | | | - LABORATORY | | | | + + + + + | [facility] | [address] | [place] | | | [facility] | | [id number] [place] [address] | | | - LABORATORY | | | | + + + + + documented in this encounter Visit Diagnoses + + | Diagnosis | + + | Diplopia | + + documented in this encounter"
--- OUTSIDE RECORDS SUMMARY | ~2020-04-15 | XMS | Encounter Summary ---
Demographics + + + | Address | [address] | | | [place] [address] | + + + | Home Phone [...] Providers + +------+ + | Care Territory Sales Executive Name | Role | Phone [...] | Palpitations | [address] | | | | | Procedures | [address] | [address] [place] | | | | | ECHO | [place], | [place], [place] | | | | | Complete | [place] [address] | [address] | | | | | | Phone: | Phone: | | | | | | [phone] | [phone] | | | | | | Fax: | Fax: | | | | | | [phone] | [phone] | +--------+--------+ + + + + Reason [...] + + | 12/21/ | Office | [facility] | Daljit Singletary, | Palpitations | | 2012 | Visit | CARDIOLOGY [address] | (Primary Dx); PVC | | | | [place], | [place], | (premature | | | | [place] [address] | [place] [address] | ventricular | | | | [phone] | [phone] | contraction) | | | | | [...] present himself to the emergency department at [facility] in [place], [place]. Today, patient is apprehensive of the [...] tablet Take 1,000 mg by mouth Daily. [place]-3 Fatty Acids (SALMON OIL-1000 PO) CAPS, one [...] tablet Take 1,000 mg by mouth Daily. [place]-3 Fatty Acids (SALMON OIL-1000 PO) CAPS, one [...] Sanchez Date: December 21, 2012 : 1960 Spray Technician: PARISA Velazquez Device Shop Superintendent: Cobiscorpt[employer] Sense (mV) Impedance (?) Capture (V) Capture (ms) A Lead 4-5.6 423 1.5 0.09 RV Lead >31.36 539 2.0 0.09 LV Lead Battery Impedance (?): 301 Battery Voltage (V): 2.8 DC Interval (ms): 140 AR Interval (ms): 210 VA Conduction: Mode Switch Events: N/A % of time: -DYNAMIC BALANCER SET UP WORKER: 0.6 AP-DYNAMIC BALANCER SET UP WORKER: 1.3 -VS: 23.9 AP-VS: 74.2 DYNAMIC BALANCER SET UP WORKER: Magnetic Rate: 85 LINDA: 65 LEAH: [...] himself to the emerge ncy department at [facility] in [place], [place]. EKG showed normal sinus rhythm with [...] I will d iscuss this option with pharmacy clinical specialist in [place]. 7. Followup in 2-4 weeks. Portions of this report were transcribed using voice recognition software. Every effort wa s made to ensure accuracy; however, inadvertent computerized computer engineering professor errors may be pre sent. documented in [...] | | | | | | [place] [address] | | | | | | [phone] | | | | | | | | +--------+ + + + + | 05/01/ | Procedure | Cardiology | | | | 2019 | visit | | | | +--------+ + + + + | 05/01/ | Office | Cardiology | Silvia, | | | 2019 | Visit | | PARISA [place] [address] | | | | | | [place], | | | | | | [place] [address] | | | | | | [phone] | | | | | | | | +--------+ + + + + | 05/21/ | Implant | Cardiology | Daljit Singletary, | Remote Device | 2019 | Monitor | | [address] | Interrogation | | | | | [place], | (Primary Dx); | | | | | [place] [address] | Pacemaker; | | | | | [phone] | Sinoatrial node | | | | [...] Performed At | + + + | [facility] | [place] | | Department [address] [place] [address] | [facility] | | [ rep ct [address]] [ rep [facility] | | [facility]] Signed | - IMAGING | | | | | Patient Name: VICTOR HUGOMONAMOE W | | | Physician: MIGUELINA : 1960 Age: 52 Sex: M Unit | | | #: [id number] Exam Date: 12/30/12 Location: | | | [facility] Report #: [id number] Page: | | | %(RAD)RES..mtdd.print.filter("pg") of %(RAD) | | | RES..mtdd.print.filter("tpg") | | | | | | Accession Number: [id number] | | | E C H O C A R D I O G R A P H Y R E P O R T | | | HEIGHT: 76" WEIGHT: 270# | | | LEAD QA ANALYST: JAMEEL REFERRING DR: TIMMY DRAKE DR: | [...] | | | Transcribed Date/Time: 12/30/2012 16:34 Steam Box Operator: | | | <<Signature on File>> | | | Daljit | | | MD Gemini [facility] FASE01/02/13 0955 <Electronically signed by | | | Daljit Singletary MD, FACC, FACP, ADELINE, YEN> Daljit | | | MD CLEOPATRA Singletary 12/30/12 1608 Steam Box Operator: Jessica | | | Izcmhhetrzmpc66/08/13 1634 Daljit Singletary MD FACC | | | FASE | | + + + + + + + + | Performing | Address | City/State/Zipcode | Phone Number | | Organization | | | | + + + + + | [facility] | [address] | [place] | [phone] | | [facility] | | [address] | | | - IMAGING | | | | + + + + + documented in this encounter Visit Diagnoses + + | Diagnosis | + + | Palpitations - Primary | + + | PVC (premature ventricular contraction) Other premature beats | + + documented in this encounter
--- OUTSIDE RECORDS SUMMARY | ~2020-04-15 | XMS | Encounter Summary ---
Demographics + + + | Address | [address] | | | [place] [address] | + + + | Home Phone [...] Providers + +------+ + | Care Stone Polisher Hand Name | Role | Phone | + +------+ + | Kirk French MD | PCP | | + +------+ + Encounter Details +--------+ + + + + | Date | Type | Department | Care Team | Description | +--------+ + + + + | 11/03/ | Imaging | [facility] | Provider, | | | 2017 | Exam | MED CTR EXTERNAL | MD Sawyer [address] | | | | | IMAGING [address] | | | | | [address] [place] | [place] [address] | | | | | [place] [address] | | | | | | [phone] | | | +--------+ + + + [...] | | | | | | [place] [address] | | | | | | [phone] | | | | | | | [...] | | | | | | [place] [address] | | | | | | [phone] | | | | | | | | +--------+ + + + + | 05/21/ | Implant | Cardiology | Daljit Singletary, | Remote Device | 2019 | Monitor | | [address] [place] | Interrogation | | | | | [place], | (Primary Dx); | | | | | [place] [address] | Pacemaker; | | | | | [phone] | Sinoatrial node | | | | [...] for comparison only - no result from [facility]. | | + + + + +---------+ + + | Performing | Address | City/State/Zipcode | Phone Number | | Organization | | | | + +---------+ + + | [facility] | | | | + +---------+ + + documented in this encounter Visit Diagnoses Not on filedocumented in this encounter"
--- OUTSIDE RECORDS SUMMARY | ~2020-04-15 | XMS | Encounter Summary ---
Demographics + + + | Address | [address] | | | [place] [address] | + + + | Home Phone [...] Team Providers + +------+ + | Care Metabolic Specialist Name | Role | Phone | [...] [address] | | | | | | [place], [place] | (Fax) | | | | | [address] | | | | | | [phone] | | | +--------+ + + + [...] | | | | | | [place] [address] | | | | | | [phone] | | | | | | | | +--------+ + + + + | 05/01/ | Procedure | Cardiology | | | | 2019 | visit | | | | +--------+ + + + + | 05/01/ | Office | Cardiology | Silvia, | | | 2019 | Visit | | PARISA [address] | | | | | | [place], | | | | | | [place] [address] | | | | | | [phone] | | | | | | | | +--------+ + + + + | 05/21/ | Implant | Cardiology | Daljit Singletary, | Remote Device | | 2019 | Monitor | | [address] [place] | Interrogation | | | | | [place], | (Primary Dx); | | | | | [place] [address] | Pacemaker; | | | | | [phone] | Sinoatrial node | | | | | | dysfunction (HCC) | | | | | | with symptomatic | | | | | | bradycardia | +--------+ + + + + documented as of this encounter Visit Diagnoses Not on filedocumented in this encounter"
--- OUTSIDE RECORDS SUMMARY | ~2020-04-15 | XMS | Encounter Summary ---
Demographics + + + | Address | [address] | | | [place] [address] | + + + | Home Phone [...] Providers + +------+ + | Care Data Visualization Developer Name | Role | Phone | [...] | | Ascending | Silvia | [address] [place] | | | | | aortic | Janeen, MANAGER OF COMPLIANCE | [place], | | | | | aneurysm | [address] | [place] [address] | | | | | (HCC) | [place] | Phone: | | | | | Abdominal | [place], | [phone] | | | | | aortic | [place] | Fax: | | | | | aneurysm | [address] | [phone] | | | | | (AAA) | Phone: | | | | | | without | [phone] | | | | | | rupture | Fax: | | | | | | (HCC) | [phone] | | | | | | Procedures [...] | unspecified | MD Martell | [address] | | | | | type ER | [address] | [address] [address] | | | | | FUP | [place] | [place], | | | | | Procedures | [place], [place] | [place] [address] | | | | | FUP - SUW & | [address] | Phone: | | | | | MISHA PT, LAST | Phone: | [phone] | | | | | SEEN | [phone] | Fax: | | | | | 08-24-18 | Fax: | [phone] | | | | | | [phone] | | +--------+ + + + + + Encounter Details +--------+---------+ + + + | Date | Type | Department | Care Team | Description | +--------+---------+ + + + | 01/11/ | [facility] | [facility] | [place], | Coronary artery | | 2019 | Visit | CARDIOLOGY [address] | PARISA [place] [address] | disease involving | | | | [place], | [place], | [place] coronary | | | | [place] [address] | [place] [address] | artery of peoria | | | | [phone] | [phone] | heart without angina | | | [...] encounter Patient Instructions Patient Instructions Christine Rodriguez, Wellness Program Coordinator - 01/11/2019 12:45 PM PST 1. You [...] Check-in time: 1. Check in at the [facility]. 2. Do not [...] hospital line at and ask for nursing chemical supervisor t o let them know you are cancelling . Blood test: Non-fasting Date Due: same day as CTA Where to go for labs: [facility]- [address] [facility]. CTA of Chest and Abdomen: [...] of non-critical coronary artery d isease involving [place] coronary artery of [place] heart without angina pectoris, essential h ypertension, [...] Preventative health care Coronary artery disease involving [place] coronary artery of pe[place] heart without angina pectoris Cannabis abuse, daily [...] 3RD DOSE, CALL 911 100 tablet 3 [place]-3 Fatty Acids (SALMON OIL-1000 PO) CAPS, one [...] was found Confirmed by HIREN WINKLER, ANGELA ([id number]) on 01/03/2019 8:10:39 PM LAB RESULTS reviewed during visit today primarily from [facility]: LIPID Lab Results Component Value Date TRIG [...] HPI. RESULTS- I reviewed reports from [facility]: Xr Chest Ap Portable Result Date: 01/02/2019 [...] ASSESSMENT: 1. Non-critical Coronary artery disease involving peoria coronary artery of peoria heart wi thout angina pectoris: A. Normal [...] go back in 3 days t o [place] for an attempt of ablation under general [...] than 30 minute waitin g period. A "hcari" of ablation lesion was performed and the [...] if he has any further problems IChristine Wellness Program Coordinator am acting as a scribe on behalf of, and in the pres ence of PARISA Lomas. - Reji Newman 01/11/2019 13:46 I, PARISA Lomas, personally performed the services described in this documentati on, as scribed in my presence and it is both accurate and complete. -PARISA Lomas 01/11/2019 Portions of this chart may have been created with [employer] voice recognition software. Occasi onal wrong-word or [...] W | | | | | | [place], | | | | | | [place] [address] | | | | | | [phone] | | | | | | | | +--------+ + + + + | 05/01/ | Procedure | Cardiology | | | | 2019 | visit | | | | +--------+ + + + + | 05/01/ | Office | Cardiology | Silvia, | | | 2019 | Visit | | PARISA Vernon [address] | | | | | | [place], | | | | | | [place] [address] | | | | | | [phone] | | | | | | | | +--------+ + + + + | 05/21/ | Implant | Cardiology | Daljit Singletary, | Remote Device | | 2019 | Monitor | | MD [address] [place] | Interrogation | | | | | [place], | (Primary Dx); | | | | | [place] [address] | Pacemaker; | | | | | [phone] | Sinoatrial node | | | | [...] + + | Coronary artery disease involving peoria coronary artery of peoria heart without | | angina pectoris - [...]
--- OUTSIDE RECORDS SUMMARY | ~2020-04-15 | XMS | Encounter Summary ---
Demographics + + + | Address | [address] | | | [place] [address] | + + + | Home Phone [...] Providers + +------+ + | Care Molded Goods Embossing Press Operator Name | Role | Phone | + +------+ + PCP | Unavailable | + +------+ + Encounter Details +--------+ + + + + | Date | Type | Department | Care Team | Description | +--------+ + + + + | [facility] | Kennethshaistatesha Shaistakenneth, | | | 2008 - | Encounter | MED CTR MP INTRA OP | [address] | | | | | [address] | [address], | | | 06/15/ | | [place] | [place] [address] | | | 2008 | | [address] | [phone] | | | | | [phone] | | | +--------+ + + + [...] W | | | | | | [place], | | | | | | [place] [address] | | | | | | [phone] | | | | | | | | +--------+ + + + + | 05/01/ | Procedure | Cardiology | | | | 2019 | visit | | | | +--------+ + + + + | 05/01/ | Office | Cardiology | Silvia, | | | 2019 | Visit | | PARISA [address] | | | | | | [place], | | | | | | [place] [address] | | | | | | [phone] | | | | | | | | +--------+ + + + + | 05/21/ | Implant | Cardiology | Daljit Singletary, | Remote Device | | 2019 | Monitor | | MD [address] | Interrogation | | | | | [place], | (Primary Dx); | | | | | [place] [address] | Pacemaker; | | | | | [phone] | Sinoatrial node | | | | | | dysfunction (HCC) | | | | | | with symptomatic | | | | | | bradycardia | +--------+ + + + + documented as of this encounter Visit Diagnoses Not on filedocumented in this encounter"
--- OUTSIDE RECORDS SUMMARY | ~2020-04-15 | XMS | Encounter Summary ---
Demographics + + + | Address | [address] [place] [address] [address] | | | [place] [address] | + + + | Home Phone [...] [place] | | | | | [address] | | + + + + + Care Team Providers + +------+ + | Care Mover Helper Name | Role | Phone | [...] Chest pain | Farooq Almaguer, | Ch[facility] [address] | | | | | Bradycardia | DO [address] | [address] | | | | | Procedures | [address] | Mailcode: | | | | | | Palak Desai | [facility] | | | | | TRANSTHORACI | [place], [place] | for Health | | | | | C | [address] | and Healing, | | | | | ECHOCARDIOGR | Phone: | Building 1 | | | | | AM, ADULT | [phone] | [place], [place] | | | | | | Fax: | [address] | | | | | | [phone] | Phone: | | | | | | | [phone] | +--------+--------+ + + + + Reason [...] | | | | | | [place], | | | | | | | [place] [address] | | | | | | | Phone: | | | | | | | [phone] | | | | | | | Fax: | | | | | | | [phone] | | +--------+--------+ + + + + Encounter Details +--------+---------+ + + + | Date | Type | Department | Care Team | Description | +--------+---------+ + + + | 02/03/ | Office | Cardiology General | Arlette Drew, | Chest pain (Primary | | 2010 | Visit | at [facility] [address] | MD | Dx); Bradycardia; | | | | Ave Mailcode: CH7[facility] | | Pacemaker | | | | [facility] | | | | | | and Healing, | | | | | | Building | | | | | | Floor [place], [place] | | | | | | [address] | | | | | | [phone] | | | +--------+---------+ + + + [...] Dr. Drew's note. Farooq Jamil DO Manager Farm Clinical director television news/ Division of Cardiovascular Medicine Yajaira Borges, [place] - 02/09/2011 12:59 PM PDT PACEMAKER HISTORY Primary Care Provider: Darion Holden DO Credit Collections Analyst: Arlette Drew MD Moe Sanchez is a [...] chamber permanent pacemaker implantation on 06/14/09 in [place], Chronic smoker, mild DIDIER, bip olar disorder with anxiety who presents for second opinion regarding his syncopal episodes. Pt. started noticing dizzy spells and episodes of syncope about 3 years ago , pacemaker was put at the recommendation of Credit Collections Analyst Dr. Singletary from [place]. [place]. Pt. states lala bhatti was put>1 [...] form tilt table testing but NA at [facility] May need to involve endocrine and EP [...] Dr. Omero DREW MD CARDIOLOGY - GENERAL [address] Mailcode: [facility], 9th Floor [facility] [address] documented in this en counter [...] | [facility] | | [facility] [address] [facility] | REGIONAL | | [place] [address] | LABORATORY | + + + + + + + + | Performing | Address | City/State/Zipcode | Phone Number | | Organization | | | | + + + + + | [facility] | [address] | [place] [address] | | | LABORATORY | | | [...] | | [facility] [place] [address] | | | [place] [address] | | + + + + + + + + | Performing | Address | City/State/Zipcode | Phone Number | | Organization | | | | + + + + + | [facility] | [address] | [place] [address] | | | LABORATORY | | | [...] | + + + + + | [facility] DEPARTMENT | [address] | [place] [address] | | | PATHOLOGY | [address] [...] DEPT OF | [address] | [place], [place] | | | CARDIOLOGY | [address] | [address] | | + + + + + [...] DEPT OF | [address] | [place], [place] | | | CARDIOLOGY | [address] | [address] | | + + + + + [...] view image for the detailed interpretation from flatev results. | CARDIOLOGY | + + + + + + + + | Performing | Address | City/State/Zipcode | Phone Number | | Organization | | | | + + + + + | [facility] DEPT OF | [address] | [place], [place] | | | CARDIOLOGY | [address] | [address] | | + + + + + documented in this encounter Visit Diagnoses + + | Diagnosis | + + | Chest pain - Primary Chest pain, unspecified | + + | Bradycardia Other specified cardiac dysrhythmias | + + | Pacemaker Cardiac pacemaker in situ | + + documented in this encounter
--- OUTSIDE RECORDS SUMMARY | ~2020-04-15 | XMS | Encounter Summary ---
Demographics + + + | Address | [address] | | | [place] [address] | + + + | Home Phone [...] Providers + +------+ + | Care Group Activities Aide Name | Role | Phone [...] | type | [address] | [address] | | | | | Procedures | [place] | [place], | | | | | FUP | [place], [place] | [place] [address] | | | | | | [address] | Phone: | | | | | | Phone: | [phone] | | | | | | [phone] | Fax: | | | | | | Fax: | [phone] | | | | | | [phone] | | +--------+ + + + + [...] | | | | CENTER [address] | [address] [place] | (Primary Dx) | | | | [place], [place] | [place] [address] | | | | | [address] | [phone] | | | | | [phone] | | | +--------+ + + + [...] cannot be sent through Care Everywhere.Angina, Stable (Cambodian)documented in this encounter Medications at Time of [...] + + + +---------+ + + | [place]-3 Fatty | CAPS, one capsule by | [...] | | | | | | [place] [address] | | | | | | [phone] | | | | | | | [...] | | | | | | [place] [address] | | | | | | [phone] | | | | | | | | +--------+ + + + + | 05/21/ | Implant | Cardiology | Daljit Singletary, | Remote Device | 2019 | Monitor | | [address] | Interrogation | | | | | [place], | (Primary Dx); | | | | | [place] [address] | Pacemaker; | | | | | [phone] | Sinoatrial node | | | | [...] | | | | HIREN WINKLER, ANGELA ([id number]) | | | | | | on [...] | | | | | | [employer] | | | | | [...] | Performing | Address | City/State/[facility] | Phone Number | | Organization | | | | + + + + + | [facility] | [address] | [place] | [phone] | | [facility] | | [address] | | | - LABORATORY | | [...] + | [facility] | [address] | [place] | [phone] | | [facility] | | [address] | | | - LABORATORY | | [...] | | | | | | [employer] | | | | | [...] | Performing | Address | City/State/[facility] | Phone Number | | Organization | | | | + + + + + | [facility] | [address] | [place] | [phone] | | [facility] | | [address] | | | - LABORATORY | | [...] | [address] | | | [place]AN | RATE,ESTIMATED | | MEDICAL | | | | mL/min/1.43l0Jvhl than | | CENTER - | | [...] [address] | [place] | [phone] | | [facility] | | [address] | | | - LABORATORY | | [...] [address] | [place] | [phone] | | [facility] | | [address] | | | - LABORATORY | | [...] | | | | ANGELA MARADIAGA MD ([id number]) | | | | | | on [...]
--- OUTSIDE RECORDS SUMMARY | ~2020-04-15 | XMS | Encounter Summary ---
Demographics + + + | Address | [address] | | | [place] [address] | + + + | Home Phone [...] Team Providers + +------+ + | Care Staffing Administrator Name | Role | Phone | [...] [address] | | | | | [place], | [place], | | | | | [place] [address] | [place] [address] | | | | | [phone] | [phone] | | | | | | | [...] W | | | | | | [place], | | | | | | [place] [address] | | | | | | [phone] | | | | | | | | +--------+ + + + + | 05/01/ | Procedure | Cardiology | | | | 2019 | visit | | | | +--------+ + + + + | 05/01/ | Office | Cardiology | Silvia, | | | 2019 | Visit | | [address] | | | | | | [place], | | | | | | [place] [address] | | | | | | [phone] | | | | | | | | +--------+ + + + + | 05/21/ | Implant | Cardiology | Daljit Singletary, | Remote Device | 2019 | Monitor | | MD [address] [place] | Interrogation | | | | | [place], | (Primary Dx); | | | | | [place] [address] | Pacemaker; | | | | | [phone] | Sinoatrial node | | | | [...]
--- OUTSIDE RECORDS SUMMARY | ~2020-04-15 | XMS | Encounter Summary ---
Demographics + + + | Address | [address] | | | [place] [address] | + + + | Home Phone [...] Providers + +------+ + | Care Boat Canvas Maker Installer Name | Role | Phone | + +------+ + | Michael Amanda DO | PCP | | + +------+ + Encounter Details +--------+ + + + + | Date | Type | Department | Care Team | Description | +--------+ + + + + | 05/11/ | Hospital | [facility] | Conversion | Lumbago; | | 2013 | Encounter | MEDICAL CENTER | Transaction, | Postlaminectomy | | | | CLINICAL DECISION | Provider Unknown | syndrome, cervical | | | | [address] | | region; Cervicalgia | | | | [place], [place] | (Fax) | | | | | [address] | Cesar, | | | | | [phone] | MD Gamaliel | | +--------+ + [...] + + + +---------+ + + | [place]-3 Fatty | CAPS, one capsule by | [...] Note by Meliza Macario RN at 05/11/14 1503 Author: Meliza Macario RN Service: (none) Author Type: Registered Nurse Filed: 05/11/14 1506 Date of Service: 05/11/14 150 Status: Signed Veneer Sorter: Meliza Macario RN (Registered Nurse) Pt discharged [...] Date of Service: 05/11/14 142 Status: Signed Veneer Sorter: Heike Mckeon RN (Registered Nurse) Called doctor [...] | | | | | | [place] [address] | | | | | | [phone] | | | | | | | [...] | | | | | | [place] [address] | | | | | | [phone] | | | | | | | | +--------+ + + + + | 05/21/ | Implant | Cardiology | Daljit Singletary, | Remote Device | | 2019 | Monitor | | [facility] | Interrogation | | | | | [place], | (Primary Dx); | | | | | [place] [address] | Pacemaker; | | | | | [phone] | Sinoatrial node | | | | [...] | | | intrathecal use. See the household appliance installer examination for details of the | | | injection. Bone algorithm noncontrast technique with reformatted | | | sagittal and coronal images. Prior study for review : CT discogram | | | from 2004 was used to orient this examination given the transitional | | | anatomy of the lumbosacral junction FINDINGS: Molded Goods Controls Operator is notable | | | for [...] for intrathecal use. See | | the household appliance installer examination for details of the injection. Bone algorithm noncontrast | | technique with reformatted sagittal and coronal images. Prior study for review : CT | | discogram from 2004 was used to orient this examination given the transitional anatomy | | of the lumbosacral junction FINDINGS: Molded Goods Controls Operator is notable for a pacing system. [...]
--- OUTSIDE RECORDS SUMMARY | ~2020-04-15 | XMS | Encounter Summary ---
Demographics + + + | Address | [address] | | | [place] [address] | + + + | Home Phone [...] Providers + +------+ + | Care Student Finance Specialist Name | Role | Phone | [...] | | | | CENTER [address] | [address] [place] | | | | | [place], [place] | [place] [address] | | | | | [address] | [phone] | | | | | [phone] | | | +--------+ + + + [...] sent through Care Everywhere.Diarrhea, Unkno wn Cause (Portuguese)documented in this encounter Medications at Time of [...] + + +---------+ + + | [place]-3 Fatty | CAPS, one capsule by [...] | | | | | | | [place] coronary | | | | | | | artery of [place] | | | | | | | [...] W | | | | | | [place], | | | | | | [place] [address] | | | | | | [phone] | | | | | | | | +--------+ + + + + | 05/01/ | Procedure | Cardiology | | | | 2019 | visit | | | | +--------+ + + + + | 05/01/ | Office | Cardiology | Silvia, | | | 2019 | Visit | | [address] | | | | | | [place], | | | | | | [place] [address] | | | | | | [phone] | | | | | | | | +--------+ + + + + | 05/21/ | Implant | Cardiology | Daljit Singletary, | Remote Device | | 2020 | Monitor | | MD [facility] | Interrogation | | | | | [place], | (Primary Dx); | | | | | [place] [address] | Pacemaker; | | | | | [phone] | Sinoatrial node | | | | [...] W?MRN: | | | | | | [id number] | | | [id number] | | | riteri | | | [...] | | | St. | | | [place] | | | y | | | [...] | | | St. | | | [place] | | | y | | | [...] | | | St. | | | [place] | | | y H. | | [...] | | | St. | | | [place] | | | y H. | | [...] | | | M.D. | | | Oil Field Laborer | | | al | | | [...] | | | ent/60 | | | [id number] | | | -5586- | | | [...] [address] | [place] | [phone] | | [facility] | | [address] | | | - LABORATORY | | [...] [address] | [place] | [phone] | | [facility] | | [address] | | | - LABORATORY | | [...] [address] | [place] | [phone] | | [facility] | | [address] | | | - LABORATORY | | [...] + | [facility] | [address] | [place] | [phone] | | [facility] | | [address] | | | - LABORATORY | | [...] [address] | [place] | [phone] | | [facility] | | [address] | | | - LABORATORY | | [...] | mL/min/1.73m2 | [place] | | | SWAZI | RATE,ESTIMATED | | MEDICAL | | | | mL/min/1.00a4Ykdo than | | CENTER - | | [...] + | [facility] | [address] | [place] | [phone] | | [facility] | | [address] | | | - LABORATORY | | [...] ST. | [address] | [place] | [phone] | | [facility] | | [address] | | | - LABORATORY | | [...] - 1.030 | [facility] | | | [place], | | | [facility] [place] | | [...] | | Cells, | | | [facility] [place] | | | Urine | | | [...] [address] | [place] | [phone] | | [facility] | | [address] | | | - LABORATORY | | [...]
--- OUTSIDE RECORDS SUMMARY | ~2020-04-15 | XMS | Encounter Summary ---
Demographics + + + | Address | [address] | | | [place] [address] | + + + | Home Phone [...] Author | [facility] | | | [...] Providers + +------+ + | Care Vehicle Maintenance Supervisor Name | Role | Phone [...] + + | 12/19/ | Telephone | [facility] | Kirk French | Triage (chronic IBS) | | 2020 | | [facility] | MD Bre[address] | | | | | PRIMARY [facility] [address] | | | | | [address] | [place] [address] | | | | | [place], [place] | [phone] | | | | | [address] | | | | | | [phone] | | | +--------+ + + + [...] | | | | | | [place] [address] | | | | | | [phone] | | | | | | | | +--------+ + + + + | 05/01/ | Procedure | Cardiology | | | | 2019 | visit | | | | +--------+ + + + + | 05/01/ | Office | Cardiology | Silvia, | | | 2019 | Visit | | [address] | | | | | | [place], | | | | | | [place] [address] | | | | | | [phone] | | | | | | | | +--------+ + + + + | 05/21/ | Implant | Cardiology | Daljit Singletary, | Remote Device | 2019 | Monitor | | [facility] | Interrogation | | | | | [place], | (Primary Dx); | | | | | [place] [address] | Pacemaker; | | | | | [phone] | Sinoatrial node | | | | | | dysfunction (HCC) | | | | | | with symptomatic | | | | | | bradycardia | +--------+ + + + + documented as of this encounter Visit Diagnoses Not on filedocumented in this encounter"
--- OUTSIDE RECORDS SUMMARY | ~2020-04-15 | XMS | Encounter Summary ---
Demographics + + + | Address | [address] | | | [place] [address] | + + + | Home Phone [...] Providers + +------+ + | Care Court Specialist Name | Role | Phone | + +------+ + PCP | Unavailable | + +------+ + Encounter Details +--------+ + + + + | Date | Type | Department | Care Team | Description | +--------+ + + + + | 04/28/ | [facility] | [facility] | Jonathan, | | | 2008 | Encounter | MED CTR EMERGENCY | Martell Cr MD [address] | | | | | CENTER [address] | [place] | | | | | [place] | [place] [address] | | | | | [address] | [phone] | | | | | [phone] | | | +--------+ + + + [...] | | | | | | [place] [address] | | | | | | [phone] | | | | | | | [...] | | | | | | [place] [address] | | | | | | [phone] | | | | | | | | +--------+ + + + + | 05/21/ | Implant | Cardiology | Daljit Singletary, | Remote Device | 2019 | Monitor | | MD [address] [place] | Interrogation | | | | | [place], | (Primary Dx); | | | | | [place] [address] | Pacemaker; | | | | | [phone] | Sinoatrial node | | | | | | dysfunction (HCC) | | | | | | with symptomatic | | | | | | bradycardia | +--------+ + + + + documented as of this encounter Visit Diagnoses Not on filedocumented in this encounter"
--- OUTSIDE RECORDS SUMMARY | ~2020-04-15 | XMS | Encounter Summary ---
Demographics + + + | Address | [address] | | | [place] [address] | + + + | Home Phone [...] Team Providers + +------+ + | Care Cosmetician Name | Role | Phone | + [...] 2019 | | GASTROENTEROLOGY | [address], [place] | | | | | [address] [place] | [address] [place], [place] | | | | | [address] [place], [place] | [address] | | | | | [address] | | | | | | [phone] | | | +--------+ + + + [...] | | | | | | [place] [address] | | | | | | [phone] | | | | | | | [...] | | | | | | [place] [address] | | | | | | [phone] | | | | | | | | +--------+ + + + + | 05/21/ | Implant | Cardiology | Daljit Singletary, | Remote Device | 2019 | Monitor | | [address] | Interrogation | | | | | [place], | (Primary Dx); | | | | | [place] [address] | Pacemaker; | | | | | [phone] | Sinoatrial node | | | | | | dysfunction (HCC) | | | | | | with symptomatic | | | | | | bradycardia | +--------+ + + + + documented as of this encounter Visit Diagnoses Not on filedocumented in this encounter"
--- OUTSIDE RECORDS SUMMARY | ~2020-04-15 | XMS | Clinical Summary ---
Demographics + + + | Address | [address] [place] [address] | | | [place] [address] | + + + | Home Phone [...] [place] | | | | | [address] | | + + + + + Care Team Providers + +------+ + | Care Metal Bonding Press Operator Name | Role | Phone | + +------+ + | Darion Holden DO | PCP | | + +------+ + Source Comments [facility] is fully live on both EpicCare Ambulatory and EpicCare InPatient.[facility] Allergies + + + [...] | | | | | | | [address] | | + +--------+ +--------+ + +--------+ | [employer] | AARP | xxxxxxxxxx | 11/22/19 | [phone] | [address] | Indemn | | RETIRED PEOPLE | | | 10-Pre | 9 | [address] | ity | | | | | sent | | [place] | | | | | | | | [address] | | + +--------+ +--------+ + +--------+ + +--------+ +--------+ + + | Guarantor Name | Accoun | Relation to | Date | Phone | Billing Address | | | t Type | Patient | of | | | | | | | | | | + +--------+ +--------+ + + | Moe Sanchez | Person | Self | [birth year] | [address] | | | cristo/Per | | 1960 | [phone] | [place] | | | roxanne | | | 8 (Home) | [address] | + +--------+ +--------+ + + Advance Directives + + + + + | Type | Date Recorded | Patient | Explanation | | | | Direct Care Counselor | | + + + + + | Advance | | | | | Directives and | | | | | Living Will | | | | + + + + + | Power of | | | | | Firmware Developer | | | | + + + + +
--- OUTSIDE RECORDS SUMMARY | ~2020-04-15 | XMS | Encounter Summary ---
Demographics + + + | Address | [address] | | | [place] [address] | + + + | Home Phone [...] + +------+ + | Care Marketing Manager Health Communications Name | Role | Phone | + +------+ + | Michael Amanda DO | PCP | | + +------+ + Encounter Details +--------+ + + + + | Date | Type | Department | Care Team | Description | +--------+ + + + + | 07/25/ | Abstract | [facility] | Michael Amanda, | | | 2013 | | [facility] | DO [address] | | | | | [address] | [place] | | | | | [place] | [address] | | | | | [address] | | | | | | [phone] | | | +--------+ + + + [...] | | | | | | [place] [address] | | | | | | [phone] | | | | | | | | +--------+ + + + + | 05/01/ | Procedure | Cardiology | | | | 2019 | visit | | | | +--------+ + + + + | 05/01/ | Office | Cardiology | Silvia, | | | 2019 | Visit | | PARISA [place] [address] | | | | | | [place], | | | | | | [place] [address] | | | | | | [phone] | | | | | | | | +--------+ + + + + | 05/21/ | Implant | Cardiology | Daljit Singletary, | Remote Device | | 2019 | Monitor | | [address] [place] | Interrogation | | | | | [place], | (Primary Dx); | | | | | [place] [address] | Pacemaker; | | | | | [phone] | Sinoatrial node | | | | | | dysfunction (HCC) | | | | | | with symptomatic | | | | | | bradycardia | +--------+ + + + + documented as of this encounter Visit Diagnoses Not on filedocumented in this encounter"
--- OUTSIDE RECORDS SUMMARY | ~2020-04-15 | XMS | Encounter Summary ---
Demographics + + + | Address | [address] | | | [place] [address] | + + + | Home Phone [...] Providers + +------+ + | Care Student Services Dean Name | Role | Phone | + [...] + + | 09/09/ | Office | [facility] | Michael Amanda, | Hyperlipidemia; | | 2011 | Visit | [facility] | DO [address] | Hypertension; | | | | [address] | [place] | Chronic pain | | | | [place] | [address] | syndrome; Neck pain, | | | | [address] | | chronic | | | | [phone] | | | +--------+---------+ + + + [...] damage history No ASHD (either angina; prior [place]; prior CABG) No cardiac end organ damage [...] slowly cutting back. Pt was going through [facility] for opiate medications prior to [...] W | | | | | | [place], | | | | | | [place] [address] | | | | | | [phone] | | | | | | | | +--------+ + + + + | 05/01/ | Procedure | Cardiology | | | | 2019 | visit | | | | +--------+ + + + + | 05/01/ | Office | Cardiology | Silvia, | | | 2019 | Visit | | PARISA Vernon [address] | | | | | | [place], | | | | | | [place] [address] | | | | | | [phone] | | | | | | | | +--------+ + + + + | 05/21/ | Implant | Cardiology | Daljit Singletary, | Remote Device | 2019 | Monitor | | [address] [place] | Interrogation | | | | | [place], | (Primary Dx); | | | | | [place] [address] | Pacemaker; | | | | | [phone] | Sinoatrial node | | | | [...]
--- OUTSIDE RECORDS SUMMARY | ~2020-04-15 | XMS | Encounter Summary ---
Demographics + + + | Address | [address] | | | [place] [address] | + + + | Home Phone [...] Team Providers + +------+ + | Care Magnet Placer Name | Role | Phone | [...] | | [address] | [place] [address] | | | | | [place], [place] | [phone] | | | | | [address] | | | | | | [phone] | | | +--------+ + + + [...] W | | | | | | [place], | | | | | | [place] [address] | | | | | | [phone] | | | | | | | | +--------+ + + + + | 05/01/ | Procedure | Cardiology | | | | 2019 | visit | | | | +--------+ + + + + | 05/01/ | Office | Cardiology | Silvia, | | | 2019 | Visit | | PARISA Vernon [address] | | | | | | [place], | | | | | | [place] [address] | | | | | | [phone] | | | | | | | | +--------+ + + + + | 05/21/ | Implant | Cardiology | Daljit Singletary, | Remote Device | | 2019 | Monitor | | [address] [place] | Interrogation | | | | | [place], | (Primary Dx); | | | | | [place] [address] | Pacemaker; | | | | | [phone] | Sinoatrial node | | | | | | dysfunction (HCC) | | | | | | with symptomatic | | | | | | bradycardia | +--------+ + + + + documented as of this encounter Visit Diagnoses + + | Diagnosis | + + | Backache, unspecified | + + documented in this encounter"
--- OUTSIDE RECORDS SUMMARY | ~2020-04-15 | XMS | Encounter Summary ---
Demographics + + + | Address | [address] | | | [place] [address] | + + + | Home Phone [...] Team Providers + +------+ + | Care Shake Loader Name | Role | Phone | [...] | 01/04/ | Telephone | [facility] | Emmanuel Daniel MD | Other | | 2019 | | GASTROENTEROLOGY | [address] [place] | | | | | [address] [place] | [address] [place] | | | | | [address] [place], [place] | [address] | | | | | [address] | | | | | | [phone] | | | +--------+ + + + [...] | | | | | | [place] [address] | | | | | | [phone] | | | | | | | [...] | | | | | | [place] [address] | | | | | | [phone] | | | | | | | | +--------+ + + + + | 05/21/ | Implant | Cardiology | Daljit Singletary, | Remote Device | | 2019 | Monitor | | [address] [facility] | Interrogation | | | | | [place], | (Primary Dx); | | | | | [place] [address] | Pacemaker; | | | | | [phone] | Sinoatrial node | | | | | | dysfunction (HCC) | | | | | | with symptomatic | | | | | | bradycardia | +--------+ + + + + documented as of this encounter Visit Diagnoses Not on filedocumented in this encounter"
--- OUTSIDE RECORDS SUMMARY | ~2020-04-15 | XMS | Encounter Summary ---
Demographics + + + | Address | [address] [place] [address] [place] | | | [place] [address] | + + + | Home Phone [...] [place] | | | | | [address] | | + + + + + Care Team Providers + +------+ + | Care Auto Air Conditioning Installer Name | Role | Phone | [...] Yao | | | | | at [facility] | [facility] | | | | | [address] | [place] [address] | | | | | [address] | | | | | | [place], [address] [place] [address] | | | | | | [place], [place] | | | | | | [address] | | | | | | [phone] | | | +--------+ + + + [...] view image for the detailed interpretation from [employer] results. | CARDIOLOGY | + + + + + + + + | Performing | Address | City/State/Zipcode | Phone Number | | Organization | | | | + + + + + | [facility] | [address] | [place], [place] | | | CARDIOLOGY | [address] | [address] | | + + + + + documented in this encounter Visit Diagnoses Not on filedocumented in this encounter"
--- OUTSIDE RECORDS SUMMARY | ~2020-04-15 | XMS | Encounter Summary ---
Demographics + + + | Address | [address] | | | [place] [address] | + + + | Home Phone [...] Providers + +------+ + | Care Sample Box Maker Name | Role | Phone | [...] W | DISCLOSURE) | | | | [place], | [place], | | | | | [place] [address] | [place] [address] | | | | | [phone] | [phone] | | | | | | | [...] W | | | | | | [place], | | | | | | [place] [address] | | | | | | [phone] | | | | | | | | +--------+ + + + + | 05/01/ | Procedure | Cardiology | | | | 2019 | visit | | | | +--------+ + + + + | 05/01/ | Office | Cardiology | Silvia, | | | 2019 | Visit | | PARISA [place] W | | | | | | [place], | | | | | | [place] [address] | | | | | | [phone] | | | | | | | | +--------+ + + + + | 05/21/ | Implant | Cardiology | Daljit Singletary, | Remote Device | | 2019 | Monitor | | [address] [facility] | Interrogation | | | | | [place], | (Primary Dx); | | | | | [place] [address] | Pacemaker; | | | | | [phone] | Sinoatrial node | | | | | | dysfunction (HCC) | | | | | | with symptomatic | | | | | | bradycardia | +--------+ + + + + documented as of this encounter Visit Diagnoses Not on filedocumented in this encounter"
--- OUTSIDE RECORDS SUMMARY | ~2020-04-15 | XMS | Encounter Summary ---
Demographics + + + | Address | [address] | | | [place] [address] | + + + | Home Phone [...] Team Providers + +------+ + | Care Ncqa Specialist Name | Role | Phone | [...] [place] | | | | | [place], [place] | [address] | | | | | [address] | [place] [address] | | | | | [phone] | [phone] | | | | | | | [...] | | | | | | [place] [address] | | | | | | [phone] | | | | | | | [...] | | | | | | [place] [address] | | | | | | [phone] | | | | | | | | +--------+ + + + + | 05/21/ | Implant | Cardiology | Daljit Singletary, | Remote Device | | 2019 | Monitor | | MD [address] [facility] | Interrogation | | | | | [address], | (Primary Dx); | | | | | [place] [address] | Pacemaker; | | | | | [phone] | Sinoatrial node | | | | [...]
--- OUTSIDE RECORDS SUMMARY | ~2020-04-15 | XMS | Encounter Summary ---
Demographics + + + | Address | [address] | | | [place] [address] | + + + | Home Phone [...] Team Providers + +------+ + | Care Employment Security Officer Name | Role | Phone | + +------+ + PCP | Unavailable | + +------+ + Encounter Details +--------+ + + + + | Date | Type | Department | Care Team | Description | +--------+ + + + + | 01/15/ | [facility] | [facility] | Emmanuel Daniel MD | | | 1994 | Encounter | MED CTR GENERIC OP | [address] [place] | | | | | CONV DEPT [address] | [address] [place] | | | | | [place], | [address] | | | | | [place] [address] | | | | | | [phone] | | | +--------+ + + + [...] | | | | | | [place], | | | | | | [place] [address] | | | | | | [phone] | | | | | | | | +--------+ + + + + | 05/01/ | Procedure | Cardiology | | | | 2019 | visit | | | | +--------+ + + + + | 05/01/ | Office | Cardiology | [place]via, | | | 2019 | Visit | | PARISA [place] W | | | | | | [place], | | | | | | [place] [address] | | | | | | [phone] | | | | | | | | +--------+ + + + + | 05/21/ | Implant | Cardiology | Daljit Singletary, | Remote Device | 2019 | Monitor | | [address] [place] | Interrogation | | | | | [place], | (Primary Dx); | | | | | [place] [address] | Pacemaker; | | | | | [phone] | Sinoatrial node | | | | | | dysfunction (HCC) | | | | | | with symptomatic | | | | | | bradycardia | +--------+ + + + + documented as of this encounter Visit Diagnoses Not on filedocumented in this encounter"
--- OUTSIDE RECORDS SUMMARY | ~2020-04-15 | XMS | Encounter Summary ---
Demographics + + + | Address | [address] | | | [place] [address] | + + + | Home Phone [...] Team Providers + +------+ + | Care Well Surveying Engineer Name | Role | Phone | + +------+ + PCP | Unavailable | + +------+ + Encounter Details +--------+ + + + + | Date | Type | Department | Care Team | Description | +--------+ + + + + | 05/13/ | [facility] | [facility] | Dom Graham, | | | 2010 | Encounter | MED CTR EMERGENCY | [address] | | | | | CENTER [address] | [place] | | | | | [place] | [address] | | | | | [address] | | | | | | [phone] | | | +--------+ + + + [...] | | | | | | [place], | | | | | | [place] [address] | | | | | | [phone] | | | | | | | | +--------+ + + + + | 05/01/ | Procedure | Cardiology | | | | 2019 | visit | | | | +--------+ + + + + | 05/01/ | Office | Cardiology | Silvia | | | 2019 | Visit | | PARISA [place] [address] | | | | | | [place], | | | | | | [place] [address] | | | | | | [phone] | | | | | | | | +--------+ + + + + | 05/21/ | Implant | Cardiology | Daljit Singletary, | Remote Device | 2019 | Monitor | | MD [address] [place] | Interrogation | | | | | [place], | (Primary Dx); | | | | | [place] [address] | Pacemaker; | | | | | [phone] | Sinoatrial node | | | | [...] | | | | | the [place] | | | | | | Access Analyzer. | | | | + + + + + + + + | Specimen | + + | | + + + + + + + | Performing | Address | City/State/Zipcode | Phone Number | | Organization | | | | + + + + + | [facility] | [address] | [place] | [phone] | | [facility] | | [address] | | | - LABORATORY | | | | + + + + + | [facility] | [address] | [place] | | | [facility] | | [address], [facility] | | | - [...] [address] | [place] | [phone] | | [facility] | | [address] | | | - LABORATORY | | | | + + + + + | [facility] | [address] | [place] | | | [facility] | | [address] | | | - LABORATORY | [...] + | [facility] | [address] | [place] | [phone] | | [facility] | | [address] | | | - LABORATORY | | | | + + + + + | [facility] | [address] | [place] | | | [facility] | | [address] | | | - [...] + | [facility] | [address] | [place], [place] | [phone] | | [facility] | | [address] | | | - LABORATORY | | | | + + + + + | [facility] | [address] | [place], [place] | | | [facility] | | [address] | | | - LABORATORY | | | | + + + + + XR Chest AP Portable (05/13/2011 3:01 PM PDT) + + | Specimen | + + | | + + + + + | Narrative | Performed At | + + + | [facility] Diagnostic [facility] Department | [facility] | | [address] [facility] | [facility] | | PORTABLE CHEST CLINICAL [...] Transcribed Date/Time: | | | 05/13/2011 17:06 Spot Checker: <Electronically Signed | | | by Jama Solis MD> 05/13/112038 | | + + + + + | Procedure Note | + + | Kevin, Rad Conversion - 12/29/2013 3:12 PM [facility] | | Diagnostic Imaging Department [address] [place] [address] | | PORTABLE CHEST CLINICAL HISTORY: TACHYCARDIA. [...] 16:57 | |Transcribed Date/Time: 05/13/2011 17:06 | |Spot Checker: | |<Electronically Signed by Jama oSlis MD> 05/13/112038 | + + + +---------+ [...]
--- OUTSIDE RECORDS SUMMARY | ~2020-04-15 | XMS | Encounter Summary ---
Demographics + + + | Address | [address] | | | [place] [address] | + + + | Home Phone [...] Team Providers + +------+ + | Care Scleroscope Tester Name | Role | Phone | + +------+ + | Kirk French MD | PCP | | + +------+ + Encounter Details +--------+ + + + + | Date | Type | Department | Care Team | Description | +--------+ + + + + | 01/25/ | Emergency | [facility] | Donald Callahan, | Strain of lumbar | | 2016 | | MEDICAL CENTER | Russ, DO [address] | paraspinal muscle, | | | | EMERGENCY CENTER | [address] | initial encounter; | | | | [address] | [place], [place] | Left hip pain | | | | [place], [place] | [address] | | | | | [address] | | | | | | [phone] | | | +--------+ + + + [...] + + + +---------+ + + | Papaaloa-3 Fatty | CAPS, one capsule by | [...] | | | | | | [place] [address] | | | | | | [phone] | | | | | | | | +--------+ + + + + | 05/01/ | Procedure | Cardiology | | | | 2019 | visit | | | | +--------+ + + + + | 05/01/ | Office | Cardiology | Silvia, | | | 2019 | Visit | | PARISA Vernon [address] | | | | | | [place], | | | | | | [place] [address] | | | | | | [phone] | | | | | | | | +--------+ + + + + | 05/21/ | Implant | Cardiology | Daljit Singletary, | Remote Device | | 2019 | Monitor | | [address] [place] | Interrogation | | | | | [place], | (Primary Dx); | | | | | [place] [address] | Pacemaker; | | | | | [phone] | Sinoatrial node | | | | [...] Conversion - 07/06/2019 12:12 AM PDT PINA [id number] years MaleXR | | LUMBAR SPINE LIMITED [...]
--- OUTSIDE RECORDS SUMMARY | ~2020-04-15 | XMS | Encounter Summary ---
Demographics + + + | Address | [address] | | | [place] [address] | + + + | Home Phone [...] Team Providers + +------+ + | Care Repair Table Operator Name | Role | Phone | + +------+ + | Michael Amanda DO | PCP | | + +------+ + Encounter Details +--------+ + + + + | Date | Type | Department | Care Team | Description | +--------+ + + + + | 10/01/ | Hospital | [facility] | Mayr Bradshaw | | | 2013 | Encounter | [facility] | Guy Larkin MD | | | | | [address] [place] | [address] | | | | | [place], [place] | [place], [place] | | | | | [address] | [address] | | | | | [phone] | | | +--------+ + + + [...] | | | | | | [place] [address] | | | | | | [phone] | | | | | | | | +--------+ + + + + | 05/01/ | Procedure | Cardiology | | | | 2019 | visit | | | | +--------+ + + + + | 05/01/ | Office | Cardiology | Silvia, | | | 2019 | Visit | | PARISA Vernon [address] | | | | | | [place], | | | | | | [place] [address] | | | | | | [phone] | | | | | | | | +--------+ + + + + | 05/21/ | Implant | Cardiology | Daljit Singletary, | Remote Device | | 2019 | Monitor | | [address] [place] | Interrogation | | | | | [place], | (Primary Dx); | | | | | [place] [address] | Pacemaker; | | | | | [phone] | Sinoatrial node | | | | [...] + | MISCELLANEOUS LAB | | | [phone] | + +---------+ + + | MISCELANIOUS LAB | | | [phone] | + +---------+ + + documented in this encounter Visit Diagnoses Not on filedocumented in this encounter"
--- OUTSIDE RECORDS SUMMARY | ~2020-04-15 | XMS | Encounter Summary ---
Demographics + + + | Address | [address] | | | [place] [address] | + + + | Home Phone [...] & [facility] | | | and [...] Team Providers + +------+ + | Care Riding Instructor Name | Role | Phone | [...] | CARDIOLOGY [address] | [address] [place] | card ) | | | | [place], | [place], | | | | | [place] [address] | [place] [address] | | | | | [phone] | | | | | | | [...] W | | | | | | [place], | | | | | | [place] [address] | | | | | | [phone] | | | | | | | | +--------+ + + + + | 05/01/ | Procedure | Cardiology | | | | 2019 | visit | | | | +--------+ + + + + | 05/01/ | Office | Cardiology | Silvia, | | | 2019 | Visit | | PARISA Vernon [address] | | | | | | [place], | | | | | | [place] [address] | | | | | | [phone] | | | | | | | | +--------+ + + + + | 05/21/ | Implant | Cardiology | Daljit Singletary, | Remote Device | | 2019 | Monitor | | [address] [place] | Interrogation | | | | | [place], | (Primary Dx); | | | | | [place] [address] | Pacemaker; | | | | | [phone] | Sinoatrial node | | | | | | dysfunction (HCC) | | | | | | with symptomatic | | | | | | bradycardia | +--------+ + + + + documented as of this encounter Visit Diagnoses Not on filedocumented in this encounter"
--- OUTSIDE RECORDS SUMMARY | ~2020-04-15 | XMS | Encounter Summary ---
Demographics + + + | Address | [address] | | | [place] [address] | + + + | Home Phone [...] Team Providers + +------+ + | Care Molecular Biology Professor Name | Role | Phone [...] + + | 10/25/ | Telephone | [facility] | [place]via, | Other (patient has | | 2013 | | CARDIOLOGY [address] | Janeen FILM WASHER [address] | changed his mind) | | | | [place], | [place], | | | | | [place] [address] | [place] [address] | | | | | [phone] | [phone] | | | | | | | [...] | | | | | | [place], | | | | | | [place] [address] | | | | | | [phone] | | | | | | | | +--------+ + + + + | 05/01/ | Procedure | Cardiology | | | | 2019 | visit | | | | +--------+ + + + + | 05/01/ | Office | Cardiology | Silvia, | | | 2019 | Visit | | PARISA Vernon [address] | | | | | | [place], | | | | | | [place] [address] | | | | | | [phone] | | | | | | | | +--------+ + + + + | 05/21/ | Implant | Cardiology | Daljit Singletary, | Remote Device | | 2019 | Monitor | | [facility] | Interrogation | | | | | [place], | (Primary Dx); | | | | | [place] [address] | Pacemaker; | | | | | [phone] | Sinoatrial node | | | | | | dysfunction (HCC) | | | | | | with symptomatic | | | | | | bradycardia | +--------+ + + + + documented as of this encounter Visit Diagnoses Not on filedocumented in this encounter"
--- OUTSIDE RECORDS SUMMARY | ~2020-04-15 | XMS | Encounter Summary ---
Demographics + + + | Address | [address] | | | [place] [address] | + + + | Home Phone [...] Team Providers + +------+ + | Care Country Printer Name | Role | Phone | [...] Refill | | 2013 | | [facility] [place] | DO [address] | | | | | [address] | [place] | | | | | [place] | [address] | | | | | [address] | | | | | | [phone] | | | +--------+--------+ + + + [...] | | | | | | [place], | | | | | | [place] [address] | | | | | | [phone] | | | | | | | | +--------+ + + + + | 05/01/ | Procedure | Cardiology | | | | 2019 | visit | | | | +--------+ + + + + | 05/01/ | Office | Cardiology | Silvia, | | | 2019 | Visit | | PARISA Vernon [address] | | | | | | [place], | | | | | | [place] [address] | | | | | | [phone] | | | | | | | | +--------+ + + + + | 05/21/ | Implant | Cardiology | Daljit Singletary, | Remote Device | | 2019 | Monitor | | [facility] | Interrogation | | | | | [place], | (Primary Dx); | | | | | [place] [address] | Pacemaker; | | | | | [phone] | Sinoatrial node | | | | | | dysfunction (HCC) | | | | | | with symptomatic | | | | | | bradycardia | +--------+ + + + + documented as of this encounter Visit Diagnoses Not on filedocumented in this encounter"
--- OUTSIDE RECORDS SUMMARY | ~2020-04-15 | XMS | Encounter Summary ---
Demographics + + + | Address | [address] | | | [place] [address] | + + + | Home Phone [...] Providers + +------+ + | Care Plastic Machine Operator Name | Role | Phone [...] Eva ROUSE | | | | | [place], [place] | [address] | | | | | [address] | [place] [address] | | | | | [phone] | [phone] | | | | | | | [...] W | | | | | | [place], | | | | | | [place] [address] | | | | | | [phone] | | | | | | | | +--------+ + + + + | 05/01/ | Procedure | Cardiology | | | | 2019 | visit | | | | +--------+ + + + + | 05/01/ | Office | Cardiology | Silvia, | | | 2019 | Visit | | PARISA Vernon [address] | | | | | | [place], | | | | | | [place] [address] | | | | | | [phone] | | | | | | | | +--------+ + + + + | 05/21/ | Implant | Cardiology | Daljit Singletary, | Remote Device | | 2019 | Monitor | | MD [address] [facility] | Interrogation | | | | | [place], | (Primary Dx); | | | | | [place] [address] | Pacemaker; | | | | | [phone] | Sinoatrial node | | | | [...]
--- OUTSIDE RECORDS SUMMARY | ~2020-04-15 | XMS | Encounter Summary ---
Demographics + + + | Address | [address] | | | [place] [address] | + + + | Home Phone [...] Team Providers + +------+ + | Care Wastewater Plant Operator Name | Role | Phone [...] Eva ROUSE | | | | | [place], [place] | [address] | | | | | [address] | [place] [address] | | | | | [phone] | [phone] | | | | | | | [...] W | | | | | | [place], | | | | | | [place] [address] | | | | | | [phone] | | | | | | | | +--------+ + + + + | 05/01/ | Procedure | Cardiology | | | | 2019 | visit | | | | +--------+ + + + + | 05/01/ | Office | Cardiology | Silvia, | | | 2019 | Visit | | PARISA Vernon [address] | | | | | | [place], | | | | | | [place] [address] | | | | | | [phone] | | | | | | | | +--------+ + + + + | 05/21/ | Implant | Cardiology | Daljit Singletary, | Remote Device | 2019 | Monitor | | MD [place] | Interrogation | | | | | [place], | (Primary Dx); | | | | | [place] [address] | Pacemaker; | | | | | [phone] | Sinoatrial node | | | | [...]
--- OUTSIDE RECORDS SUMMARY | ~2020-04-15 | XMS | Encounter Summary ---
Demographics + + + | Address | [address] | | | [place] [address] | + + + | Home Phone [...] + | 03/24/ | Telephone | [facility] | [place], | Other (chest pain) | | 2018 | | CARDIOLOGY [address] | PARISA Vernon [address] | | | | | [place], | [place], | | | | | [place] [address] | [place] [address] | | | | | [phone] | | | | | | | [...] | | | | | | [place] [address] | | | | | | [phone] | | | | | | | [...] | | | | | | [place] [address] | | | | | | [phone] | | | | | | | | +--------+ + + + + | 05/21/ | Implant | Cardiology | Daljit Singletary, | Remote Device | 2019 | Monitor | | [address] [place] | Interrogation | | | | | [place], | (Primary Dx); | | | | | [place] [address] | Pacemaker; | | | | | [phone] | Sinoatrial node | | | | | | dysfunction (HCC) | | | | | | with symptomatic | | | | | | bradycardia | +--------+ + + + + documented as of this encounter Visit Diagnoses Not on filedocumented in this encounter"
--- OUTSIDE RECORDS SUMMARY | ~2020-04-15 | XMS | Encounter Summary ---
Demographics + + + | Address | [address] | | | [place] [address] | + + + | Home Phone [...] Team Providers + +------+ + | Care Shipfitters Supervisor Name | Role | Phone | [...] 2012 | | CARDIOLOGY [address] | SUPPLIER SPECIALIST [address] [place] | to be referred | | | | [place], | [place], [place] | soon) | | | | [place] [address] | [address] | | | | | [phone] | | | +--------+ + + + [...] | | | | | | [place] [address] | | | | | | [phone] | | | | | | | | +--------+ + + + + | 05/01/ | Procedure | Cardiology | | | | 2019 | visit | | | | +--------+ + + + + | 05/01/ | Office | Cardiology | Silvia, | | | 2019 | Visit | | PARISA [address] | | | | | | [place], | | | | | | [place] [address] | | | | | | [phone] | | | | | | | | +--------+ + + + + | 05/21/ | Implant | Cardiology | Daljit Singletary, | Remote Device | | 2020 | Monitor | | [facility] [place] | Interrogation | | | | | [facility] Hooper, | (Primary Dx); | | | | | [place] [address] | Pacemaker; | | | | | [phone] | Sinoatrial node | | | | | | dysfunction (HCC) | | | | | | with symptomatic | | | | | | bradycardia | +--------+ + + + + documented as of this encounter Visit Diagnoses Not on filedocumented in this encounter"
--- OUTSIDE RECORDS SUMMARY | ~2020-04-15 | XMS | Encounter Summary ---
Demographics + + + | Address | [address] | | | [place] [address] | + + + | Home Phone [...] Providers + +------+ + | Care Dye Tank Tender Name | Role | Phone | [...] CARDIOLOGY [address] | MD [address] | Dx); SINUS | | | | [place], | [place], | [place] | | | | [place] [address] | [place] [address] | | | | | [phone] | [phone] | | | | | | | [...] | | | | | | [place] [address] | | | | | | [phone] | | | | | | | | +--------+ + + + + | 05/01/ | Procedure | Cardiology | | | | 2019 | visit | | | | +--------+ + + + + | 05/01/ | Office | Cardiology | [place], | | | 2019 | Visit | | [address] | | | | | | [place], | | | | | | [place] [address] | | | | | | [phone] | | | | | | | | +--------+ + + + + | 05/21/ | Implant | Cardiology | Daljit Singletary, | Remote Device | | 2019 | Monitor | | [address] | Interrogation | | | | | [place], | (Primary Dx); | | | | | [place] [address] | Pacemaker; | | | | | [phone] | Sinoatrial node | | | | [...]
--- OUTSIDE RECORDS SUMMARY | ~2020-04-15 | XMS | Encounter Summary ---
Demographics + + + | Address | [address] | | | [place] [address] | + + + | Home Phone [...] Team Providers + +------+ + | Care Reformatory Attendant Name | Role | Phone | [...] Provider Unknown | | | | | [place], [place] | [phone] | | | | | [address] | | | | | | [phone] | | | +--------+ + + + [...] + + + +---------+ + + | [place]-3 Fatty | CAPS, one capsule by | [...] W | | | | | | [place], | | | | | | [place] [address] | | | | | | [phone] | | | | | | | | +--------+ + + + + | 05/01/ | Procedure | Cardiology | | | | 2019 | visit | | | | +--------+ + + + + | 05/01/ | Office | Cardiology | [place], | | | 2019 | Visit | | [address] | | | | | | [place], | | | | | | [place] [address] | | | | | | [phone] | | | | | | | | +--------+ + + + + | 05/21/ | Implant | Cardiology | Daljit Singletary, | Remote Device | | 2019 | Monitor | | [address] | Interrogation | | | | | [place], | (Primary Dx); | | | | | [place] [address] | Pacemaker; | | | | | [phone] | Sinoatrial node | | | | [...]
--- OUTSIDE RECORDS SUMMARY | ~2020-04-15 | XMS | Encounter Summary ---
Demographics + + + | Address | [address] | | | [place] [address] | + + + | Home Phone [...] Providers + +------+ + | Care Inspector Fabric Name | Role | Phone | + [...] + | 08/14/ | Telephone | [facility] | Michael Amanda, | Appointment | | 2012 | | [facility] IM[facility] [address] | DO [address] | | | | | [facility] | [place] | | | | | [place], [place] | [address] | | | | | [address] | | | | | | [phone] | | | +--------+ + + + [...] W | | | | | | [place], | | | | | | [place] [address] | | | | | | [phone] | | | | | | | | +--------+ + + + + | 05/01/ | Procedure | Cardiology | | | | 2019 | visit | | | | +--------+ + + + + | 05/01/ | Office | Cardiology | [place], | | | 2019 | Visit | | [address] | | | | | | [place], | | | | | | [place] [address] | | | | | | [phone] | | | | | | | | +--------+ + + + + | 05/21/ | Implant | Cardiology | Daljit Singletary, | Remote Device | 2019 | Monitor | | MD [place] | Interrogation | | | | | [place], | (Primary Dx); | | | | | [place] [address] | Pacemaker; | | | | | [phone] | Sinoatrial node | | | | | | dysfunction (HCC) | | | | | | with symptomatic | | | | | | bradycardia | +--------+ + + + + documented as of this encounter Visit Diagnoses Not on filedocumented in this encounter"
--- OUTSIDE RECORDS SUMMARY | ~2020-04-15 | XMS | Encounter Summary ---
Demographics + + + | Address | [address] [place] [address] [address] | | | [place] [address] | + + + | Home Phone | | + + + | Preferred Language | Unknown | + + + | Marital Status | | + + + | Druze Affiliation | Unknown | + + + [...] [place] | | | | | [address] | | + + + + + Care Team Providers + +------+ + | Care Leak Detection Engineer Name | Role | Phone | [...] | | 2019 | | Center at [facility] [address] | MD [address] | | | | | [address] | [facility] [place] | | | | | Mailcode: [place] | [address] | | | | | for Health and | [phone] | | | | | [facility] | | | | | | [facility] [place] | | | | | | [address] | | | | | | [phone] | | | +--------+ + + + [...]
--- OUTSIDE RECORDS SUMMARY | ~2020-04-15 | XMS | Encounter Summary ---
Demographics + + + | Address | [address] | | | [place] [address] | + + + | Home Phone [...] Team Providers + +------+ + | Care Grain Sampler Name | Role | Phone | [...] | | 2013 | | [facility] [place] | DO [address] | | | | | [address] | [place] | | | | | [place] | [address] | | | | | [address] | | | | | | [phone] | | | +--------+--------+ + + + [...] W | | | | | | [place], | | | | | | [place] [address] | | | | | | [phone] | | | | | | | | +--------+ + + + + | 05/01/ | Procedure | Cardiology | | | | 2019 | visit | | | | +--------+ + + + + | 05/01/ | Office | Cardiology | [place], | | | 2019 | Visit | | [address] W | | | | | | [place], | | | | | | [place] [address] | | | | | | [phone] | | | | | | | | +--------+ + + + + | 05/21/ | Implant | Cardiology | Daljit Singletary, | Remote Device | | 2019 | Monitor | | [address] [facility] | Interrogation | | | | | [place], | (Primary Dx); | | | | | [place] [address] | Pacemaker; | | | | | [phone] | Sinoatrial node | | | | | | dysfunction (HCC) | | | | | | with symptomatic | | | | | | bradycardia | +--------+ + + + + documented as of this encounter Visit Diagnoses Not on filedocumented in this encounter"
--- OUTSIDE RECORDS SUMMARY | ~2020-04-15 | XMS | Encounter Summary ---
Demographics + + + | Address | [address] | | | [place] [address] | + + + | Home Phone [...] Providers + +------+ + | Care Systems Software Developer Name | Role | Phone | [...] | initial encounter; | | | | [place], [place] | | Elevated blood | | | | [address] | | pressure reading; | | | | [phone] | | Numbness and | | | [...] + + + +---------+ + + | [place]-3 Fatty | CAPS, one capsule by | [...] | | | | | | [place] [address] | | | | | | [phone] | | | | | | | | +--------+ + + + + | 05/01/ | Procedure | Cardiology | | | | 2019 | visit | | | | +--------+ + + + + | 05/01/ | Office | Cardiology | [place], | | | 2019 | Visit | | [address] W | | | | | | [place], | | | | | | [place] [address] | | | | | | [phone] | | | | | | | | +--------+ + + + + | 05/21/ | Implant | Cardiology | Daljit Singletary, | Remote Device | | 2020 | Monitor | | [address] [facility] | Interrogation | | | | | [place], | (Primary Dx); | | | | | [place] [address] | Pacemaker; | | | | | [phone] | Sinoatrial node | | | | [...]
--- OUTSIDE RECORDS SUMMARY | ~2020-04-15 | XMS | Encounter Summary ---
Demographics + + + | Address | [address] | | | [place] [address] | + + + | Home Phone [...] Providers + +------+ + | Care Surgical Appliances Salesperson Name | Role | Phone | [...] [place] | | | | | | [address] | | | | | | [phone] | | | | | | | [...] | | | | | | [place] [address] | | | | | | [phone] | | | | | | | | +--------+ + + + + | 05/01/ | Procedure | Cardiology | | | | 2019 | visit | | | | +--------+ + + + + | 05/01/ | Office | Cardiology | [place], | | | 2019 | Visit | | [address] [address] | | | | | | [place], | | | | | | [place] [address] | | | | | | [phone] | | | | | | | | +--------+ + + + + | 05/21/ | Implant | Cardiology | Daljit Singletary, | Remote Device | | 2019 | Monitor | | MD [address] [place] | Interrogation | | | | | [place], | (Primary Dx); | | | | | [place] [address] | Pacemaker; | | | | | [phone] | Sinoatrial node | | | | | | dysfunction (HCC) | | | | | | with symptomatic | | | | | | bradycardia | +--------+ + + + + documented as of this encounter Visit Diagnoses Not on filedocumented in this encounter"
--- OUTSIDE RECORDS SUMMARY | ~2020-04-15 | XMS | Encounter Summary ---
Demographics + + + | Address | [address] | | | [place] [address] | + + + | Home Phone [...] Providers + +------+ + | Care Communications Technician Name | Role | Phone | [...] | | CARDIOLOGY [address] | [address] | | | | | [place], | [place], | | | | | [place] [address] | [place] [address] | | | | | [phone] | [phone] | | | | | | | [...] | | | | | | [place], | | | | | | [place] [address] | | | | | | [phone] | | | | | | | | +--------+ + + + + | 05/01/ | Procedure | Cardiology | | | | 2019 | visit | | | | +--------+ + + + + | 05/01/ | Office | Cardiology | [place], | | | 2019 | Visit | | [address] W | | | | | | [place], | | | | | | [place] [address] | | | | | | [phone] | | | | | | | | +--------+ + + + + | 05/21/ | Implant | Cardiology | Daljit Singletary, | Remote Device | | 2019 | Monitor | | [address] [facility] | Interrogation | | | | | [place], | (Primary Dx); | | | | | [place] [address] | Pacemaker; | | | | | [phone] | Sinoatrial node | | | | | | dysfunction (HCC) | | | | | | with symptomatic | | | | | | bradycardia | +--------+ + + + + documented as of this encounter Visit Diagnoses Not on filedocumented in this encounter"
--- OUTSIDE RECORDS SUMMARY | ~2020-04-15 | XMS | Encounter Summary ---
Demographics + + + | Address | [address] | | | [place] [address] | + + + | Home Phone [...] Providers + +------+ + | Care Scale Tank Operator Name | Role | Phone | + +------+ + PCP | Unavailable | + +------+ + Encounter Details +--------+ + + + + | Date | Type | Department | Care Team | Description | +--------+ + + + + | 09/08/ | [facility] | [facility] | Naresh Mckeon | | | 1998 | Encounter | MED CTR SLEEP | MD Chaya [address] | | | | | CENTER [address] | [place] | | | | | [place] | [place] [address] | | | | | [address] | [phone] | | | | | [phone] | | | +--------+ + + + [...] W | | | | | | [place], | | | | | | [place] [address] | | | | | | [phone] | | | | | | | | +--------+ + + + + | 05/01/ | Procedure | Cardiology | | | | 2019 | visit | | | | +--------+ + + + + | 05/01/ | Office | Cardiology | [place] | | | 2019 | Visit | | [address] [address] | | | | | | [place], | | | | | | [place] [address] | | | | | | [phone] | | | | | | | | +--------+ + + + + | 05/21/ | Implant | Cardiology | Daljit Singletary, | Remote Device | 2019 | Monitor | | MD [address] [place] | Interrogation | | | | | [place], | (Primary Dx); | | | | | [place] [address] | Pacemaker; | | | | | [phone] | Sinoatrial node | | | | | | dysfunction (HCC) | | | | | | with symptomatic | | | | | | bradycardia | +--------+ + + + + documented as of this encounter Visit Diagnoses Not on filedocumented in this encounter"
--- OUTSIDE RECORDS SUMMARY | ~2020-04-15 | XMS | Encounter Summary ---
Demographics + + + | Address | [address] | | | [place] [address] | + + + | Home Phone [...] Providers + +------+ + | Care Call Center Manager Name | Role | Phone | + +------+ + PCP | Unavailable | + +------+ + Encounter Details +--------+ + + + + | Date | Type | Department | Care Team | Description | +--------+ + + + + | 02/21/ | [facility] | [facility] | Cristy Braun | | | 2008 | Encounter | MED CTR EMERGENCY | MD Ronald [address] | | | | | ODELL [address] [place] | [facility], | | | | | [place] | [place] [address] | | | | | [address] | [phone] | | | | | [phone] | | | +--------+ + + + [...] | | | | | [place], | | | | | | [place] [address] | | | | | | [phone] | | | | | | | | +--------+ + + + + | 05/01/ | Procedure | Cardiology | | | | 2019 | visit | | | | +--------+ + + + + | 05/01/ | Office | Cardiology | [place] | | | 2019 | Visit | | [place] [address] | | | | | | [place], | | | | | | [place] [address] | | | | | | [phone] | | | | | | | | +--------+ + + + + | 05/21/ | Implant | Cardiology | Daljit Singletary, | Remote Device | 2019 | Monitor | | MD [address] [place] | Interrogation | | | | | [place], | (Primary Dx); | | | | | [place] [address] | Pacemaker; | | | | | [phone] | Sinoatrial node | | | | | | dysfunction (HCC) | | | | | | with symptomatic | | | | | | bradycardia | +--------+ + + + + documented as of this encounter Visit Diagnoses Not on filedocumented in this encounter"
--- OUTSIDE RECORDS SUMMARY | ~2020-04-15 | XMS | Encounter Summary ---
Demographics + + + | Address | [address] | | | [place] [address] | + + + | Home Phone [...] Providers + +------+ + | Care Shop Lead Name | Role | Phone | [...] + | 07/01/ | Telephone | [facility] | Daljit Singletary, | Other (EKG) | | 2017 | | CARDIOLOGY [address] | MD [address] [place] | | | | | [place], | [place], | | | | | [place] [address] | [place] [address] | | | | | [phone] | [phone] | | | | | | | [...] | | | | | | [place] [address] | | | | | | [phone] | | | | | | | | +--------+ + + + + | 05/01/ | Procedure | Cardiology | | | | 2019 | visit | | | | +--------+ + + + + | 05/01/ | Office | Cardiology | Silvia, | | | 2019 | Visit | | PARISA [place] [address] | | | | | | [place], | | | | | | [place] [address] | | | | | | [phone] | | | | | | | | +--------+ + + + + | 05/21/ | Implant | Cardiology | Daljit Singletary, | Remote Device | | 2019 | Monitor | | [facility] | Interrogation | | | | | [place], | (Primary Dx); | | | | | [place] [address] | Pacemaker; | | | | | [phone] | Sinoatrial node | | | | | | dysfunction (HCC) | | | | | | with symptomatic | | | | | | bradycardia | +--------+ + + + + documented as of this encounter Visit Diagnoses Not on filedocumented in this encounter"
--- OUTSIDE RECORDS SUMMARY | ~2020-04-15 | XMS | Encounter Summary ---
Demographics + + + | Address | [address] | | | [place] [address] | + + + | Home Phone [...] Providers + +------+ + | Care Pre K Teacher Name | Role | Phone | [...] [place] | | | | | | [address] | | | | | | [phone] | | | +--------+ + + + [...] + + +---------+ + + | [place]-3 Fatty | CAPS, one capsule by | [...] | | | | | | [place] [address] | | | | | | [phone] | | | | | | | | +--------+ + + + + | 05/01/ | Procedure | Cardiology | | | | 2019 | visit | | | | +--------+ + + + + | 05/01/ | Office | Cardiology | Silvia, | | | 2019 | Visit | | PAR[place] [address] | | | | | | [place], | | | | | | [place] [address] | | | | | | [phone] | | | | | | | | +--------+ + + + + | 05/21/ | Implant | Cardiology | Daljit Singletary, | Remote Device | 2019 | Monitor | | [address] [facility] | Interrogation | | | | | [place], | (Primary Dx); | | | | | [place] [address] | Pacemaker; | | | | | [phone] | Sinoatrial node | | | | [...]
--- OUTSIDE RECORDS SUMMARY | ~2020-04-15 | XMS | Encounter Summary ---
Demographics + + + | Address | [address] | | | [place] [address] | + + + | Home Phone [...] Team Providers + +------+ + | Care Jacquard Lace Weaver Name | Role | Phone | + +------+ + | Kirk French MD | PCP | | + +------+ + Encounter Details +--------+ + + + + | Date | Type | Department | Care Team | Description | +--------+ + + + + | 07/05/ | Hospital | [facility] | Conversion | Acute neck pain | | 2017 | Encounter | [facility] XRAY | Transaction, | | | | | [address] | Provider Unknown | | | | | [address] [place], [place] | [phone] | | | | | [address] | | | | | | [phone] | Apolonia Ruano | | | | | | MD Shelly [address] | | | | | | [address] | | | | | | [place], [place] | | | | | | [address] | | | | | | [phone] | | | | | | | [...] | | | | | | [place] [address] | | | | | | [phone] | | | | | | | [...] | | | | | | [place] [address] | | | | | | [phone] | | | | | | | [...] | Pacemaker; | | | | | [phone] | Sinoatrial node | | | | [...]
--- OUTSIDE RECORDS SUMMARY | ~2020-04-15 | XMS | Encounter Summary ---
Demographics + + + | Address | [address] | | | [place] [address] | + + + | Home Phone [...] Providers + +------+ + | Care Glazier Helper Name | Role | Phone | [...] | Palpitations | [address] | | | | | Procedures | [address] | [address] [place] | | | | | ECHO | [place], | [place], [place] | | | | | Complete | [place] [address] | [address] | | | | | | Phone: | Phone: | | | | | | [phone] | [phone] | | | | | | Fax: | Fax: | | | | | | [phone] | [phone] | +--------+--------+ + + + + Encounter Details +--------+ + + + + | Date | Type | Department | Care Team | Description | +--------+ + + + + | 12/30/ | Hospital | [facility] | TimmyshaistateshaShaistatimmy, | Palpitations | | 2012 - | Encounter | MED CTR XRAY [address] | MD [address] | | | | | [place] | [place], | | | 01/01/ | | [place] [address] | [place] [address] | | | 2012 | | [phone] | | | | | | | [...] + + + +---------+ + + | [place]-3 Fatty | CAPS, one capsule by | [...] W | | | | | | [place], | | | | | | [place] [address] | | | | | | [phone] | | | | | | | | +--------+ + + + + | 05/01/ | Procedure | Cardiology | | | | 2019 | visit | | | | +--------+ + + + + | 05/01/ | Office | Cardiology | [place]via | | | 2019 | Visit | | [place] [address] | | | | | | [place], | | | | | | [place] [address] | | | | | | [phone] | | | | | | | | +--------+ + + + + | 05/21/ | Implant | Cardiology | Daljit Singletary, | Remote Device | 2019 | Monitor | | MD [address] [place] | Interrogation | | | | | [place], | (Primary Dx); | | | | | [place] [address] | Pacemaker; | | | | | [phone] | Sinoatrial node | | | | [...] Performed At | + + + | [facility] | [place] | | Department [address] [facility] | [facility] | | [ rep [address]] [ rep [facility] | | st zip] Signed | - IMAGING | | | | | Patient Name: MOE GAY | | | Physician: MIGUELINA : 1960 Age: 52 Sex: M Unit | | | #: [id number] Exam Date: 12/30/12 Location: | | | [facility] Report #: [id number] Page: | | | %(RAD)RES..mtdd.print.filter("pg") of %(RAD) | | | RES..mtdd.print.filter("tpg") | | | | | | Accession Number: [id number] | | | E C H O C A R D I O G R A P H Y R E P O R T | | | HEIGHT: 76" WEIGHT: 270# | | | LABOR ECONOMIST: JAMEEL REFERRING DR: TIMMY DRAKE DR: | [...] | | | Transcribed Date/Time: 12/30/2012 16:34 Architecture Technician: | | | <<Signature on File>> | | | Daljit | | | MD [facility] FASE01/02/13 0955 <Electronically signed by | | | Daljit Singletary MD, FAC, FACP, FASNanette, FASRAUL> Daljit | | | MD [facility] ADELINE 12/30/12 1608 Architecture Technician: Jessica | | | Ikuvzqmogjxiu01/08/13 1634 Daljit Singletary MD [facility] | | | FASNanette | | + + + + + + + + | Performing | Address | City/State/Zipcode | Phone Number | | Organization | | | | + + + + + | [facility] | [address] | [place] | [phone] | | [facility] | | [address] | | | - IMAGING | | | | + + + + + documented in this encounter Visit Diagnoses + + | Diagnosis | + + | Palpitations | + + documented in this encounter
--- OUTSIDE RECORDS SUMMARY | ~2020-04-15 | XMS | Encounter Summary ---
Demographics + + + | Address | [address] | | | [place] [address] | + + + | Home Phone [...] + +------+ + | Care Motion Picture Projectionist Apprentice Name | Role | Phone | [...] + | 01/25/ | Telephone | [facility] | Daljit Singletary, | Appointment | | 2017 | | CARDIOLOGY [address] | MD [address] [place] | | | | | [place], | [place], | | | | | [place] [address] | [place] [address] | | | | | [phone] | [phone] | | | | | | | [...] W | | | | | | [place], | | | | | | [place] [address] | | | | | | [phone] | | | | | | | | +--------+ + + + + | 05/01/ | Procedure | Cardiology | | | | 2019 | visit | | | | +--------+ + + + + | 05/01/ | Office | Cardiology | Silvia, | | | 2019 | Visit | | PAR[place] [address] | | | | | | [place], | | | | | | [place] [address] | | | | | | [phone] | | | | | | | | +--------+ + + + + | 05/21/ | Implant | Cardiology | Daljit Singletary, | Remote Device | | 2019 | Monitor | | [facility] | Interrogation | | | | | [address] [place], | (Primary Dx); | | | | | [place] [address] | Pacemaker; | | | | | [phone] | Sinoatrial node | | | | | | dysfunction (HCC) | | | | | | with symptomatic | | | | | | bradycardia | +--------+ + + + + documented as of this encounter Visit Diagnoses Not on filedocumented in this encounter"
--- OUTSIDE RECORDS SUMMARY | ~2020-04-15 | XMS | Encounter Summary ---
Demographics + + + | Address | [address] | | | [place] [address] | + + + | Home Phone [...] Providers + +------+ + | Care Silk Screen Printing Racker Name | Role | Phone | + [...] + | 01/25/ | Office | [facility] | Daljit Singletary, | Other chest pain | | 2012 | Visit | CARDIOLOGY [address] | [address] | (Primary Dx); PVC's | | | | [place], | [place], | (premature | | | | [place] [address] | [place] [address] | ventricular | | | | [phone] | [phone] | contractions) | | | | | [...] note, lorraine painting has appointment to see special education curriculum specialist for PVCs ablations consultation on January [...] tablet Take 1,000 mg by mouth Daily. [place]-3 Fatty Acids (SALMON OIL-1000 PO) CAPS, one [...] tablet Take 1,000 mg by mouth Daily. [place]-3 Fatty Acids (SALMON OIL-1000 PO) CAPS, one [...] | | | | | | [place] [address] | | | | | | [phone] | | | | | | | | +--------+ + + + + | 05/01/ | Procedure | Cardiology | | | | 2019 | visit | | | | +--------+ + + + + | 05/01/ | Office | Cardiology | [place]via | | | 2019 | Visit | | Janeen, SKI TOP TRIMMER [address] | | | | | | [place], | | | | | | [place] [address] | | | | | | [phone] | | | | | | | | +--------+ + + + + | 05/21/ | Implant | Cardiology | Daljit Singletary, | Remote Device | | 2020 | Monitor | | [address] | Interrogation | | | | | [place], | (Primary Dx); | | | | | [place] [address] | Pacemaker; | | | | | [phone] | Sinoatrial node | | | | [...]
--- OUTSIDE RECORDS SUMMARY | ~2020-04-15 | XMS | Encounter Summary ---
Demographics + + + | Address | [address] | | | [place] [address] | + + + | Home Phone [...] Providers + +------+ + | Care Traffic Or System Dispatcher Name | Role | Phone | [...] | | | [place], [place] | [phone] | | | | | [address] | | | | | | [phone] | | | +--------+ + + + [...] + + + +---------+ + + | [place]-[employer] Fatty | CAPS, one capsule by [...] | | | | | | | #[id number], exp 07/2016 | | | | | [...] | | | | | | [place] [address] | | | | | | [phone] | | | | | | | | +--------+ + + + + | 05/01/ | Procedure | Cardiology | | | | 2019 | visit | | | | +--------+ + + + + | 05/01/ | Office | Cardiology | Silvia, | | | 2019 | Visit | | PARISA Vernon [address] | | | | | | [place], | | | | | | [place] [address] | | | | | | [phone] | | | | | | | | +--------+ + + + + | 05/21/ | Implant | Cardiology | Daljit Singletary, | Remote Device | | 2020 | Monitor | | [address] | Interrogation | | | | | [place], | (Primary Dx); | | | | | [place] [address] | Pacemaker; | | | | | [phone] | Sinoatrial node | | | | [...]
--- OUTSIDE RECORDS SUMMARY | ~2020-04-15 | XMS | Encounter Summary ---
Demographics + + + | Address | [address] | | | [place] [address] | + + + | Home Phone [...] CARDIOLOGY [address] | MD [address] | Interrogation | | | | [place], | [place], | (Primary Dx); | | | | [place] [address] | [place] [address] | Pacemaker; | | | | [phone] | Sinoatrial node | | | | [...] | | | | | | [place] [address] | | | | | | [phone] | | | | | | | | +--------+ + + + + | 05/01/ | Procedure | Cardiology | | | | 2019 | visit | | | | +--------+ + + + + | 05/01/ | Office | Cardiology | Silvia, | | | 2019 | Visit | | PARISA Vernon W | | | | | | [place], | | | | | | [place] [address] | | | | | | [phone] | | | | | | | | +--------+ + + + + | 05/21/ | Implant | Cardiology | Daljit Singletary, | Remote Device | 2019 | Monitor | | MD Sim [facility] | Interrogation | | | | | [place], | (Primary Dx); | | | | | [place] [address] | Pacemaker; | | | | | [phone] | Sinoatrial node | | | | [...]
--- OUTSIDE RECORDS SUMMARY | ~2020-04-15 | XMS | Encounter Summary ---
Demographics + + + | Address | [address] | | | [place] [address] | + + + | Home Phone [...] Team Providers + +------+ + | Care Rhinestone Setter Name | Role | Phone | [...] | Aneurysmal | Silvia, | [address] [place] | | | | | dilatation | PARISA Solis | [place], | | | | | (HCC) | [address] | [place] | | | | | Procedures | [place] | [address] | | | | | ECHO | [place], | Phone: | | | | | Complete | [place] | [phone] | | | | | | [address] | Fax: | | | | | | Phone: | [phone] | | | | | | [phone] | | | | | | | Fax: | | | | | | | [phone] | | +--------+--------+ + + + + Encounter Details +--------+ + + + + | Date | Type | Department | Care Team | Description | +--------+ + + + + | 11/16/ | Orders Only | [facility] [place] | [place], | Aneurysmal | | 2017 | | CARDIOLOGY [address] | PARISA Solis [address] | dilatation (HCC) | | | | [place], | [place], | (Primary Dx) | | | | [place] [address] | [place] [address] | | | | | [phone] | [phone] | | | | | | | [...] | | | | | | [place], | | | | | | [place] [address] | | | | | | [phone] | | | | | | | | +--------+ + + + + | 05/01/ | Procedure | Cardiology | | | | 2019 | visit | | | | +--------+ + + + + | 05/01/ | Office | Cardiology | Silvia, | | | 2019 | Visit | | PARISA Solis [address] | | | | | | [place], | | | | | | [place] [address] | | | | | | [phone] | | | | | | | | +--------+ + + + + | 05/21/ | Implant | Cardiology | Daljit Singletary, | Remote Device | | 2019 | Monitor | | [address] [place] | Interrogation | | | | | [place], | (Primary Dx); | | | | | [place] [address] | Pacemaker; | | | | | [phone] | Sinoatrial node | | | | [...] | Echocardiography Report (TTE) Demographics Patient Name VICTO RHUGO | | | [place] Room Number KIRK Patient | | | [id number] Date of Study 11/16/2017 Number | | | Visit Number [id number] | | | Referring Physician GURJIT TROY Number | | | NORMA SOLIS Date | | | of 1960 Overhead Crane Operator ROMAINE | | | MARISSA TIPTON Age 57 year(s) Interpreting | | | GURJIT TROY | | | Food Services Manager DALJIT SINGLETARY, | | | MD | | | Gender Male Nurse | | | Stress Allergy Specialist Procedure Type of | | | Study [...] | | | EF | | | Agawfligw07% Left Ventricle Diastolic Dimension: 5.12 cm | [...] Volume: 46.33 ml | | | EF Ofotbvoqa16% | | | | | | Left [...] Rad Results In - 11/16/2017 1:48 PM [facility] Transthoracic Echocardiography Report | | (TTE) Demographics Patient Name VICTOR HUGO BARRY Room Number KIRK | | Patient [id number] Date of Study 11/16/2017 Number Visit Number | | [id number] Referring Physician GURJIT TROY | | Number NORMA SOLIS Date of | | 1960 Overhead Crane Operator ROMAINE TIPTON RDCS Age 57 year(s) | | Interpreting GURJIT TROY Food Services Manager | | DALJIT SINGLETARY MD | | [...] [place] Volume: 46.33 ml | | EF Sfrbsagqp48% Left Ventricle Diastolic Dimension: 5.12 cm Systolic [...] [place] Volume: 46.33 ml | | EF Uraykdamv44% | | | | Left Ventricle | [...]
--- OUTSIDE RECORDS SUMMARY | ~2020-04-15 | XMS | Encounter Summary ---
Demographics + + + | Address | [address] | | | [place] [address] | + + + | Home Phone [...] Team Providers + +------+ + | Care Watch Hairspring Assembler Name | Role | Phone | [...] [address] | | | | | [place], | [place], | | | | | [place] [address] | [place] [address] | | | | | [phone] | | | | | | | [...] | | | | | [place], | | | | | | [place] [address] | | | | | | [phone] | | | | | | | | +--------+ + + + + | 05/01/ | Procedure | Cardiology | | | | 2019 | visit | | | | +--------+ + + + + | 05/01/ | Office | Cardiology | Silvia, | | | 2019 | Visit | | [address] W | | | | | | [place], | | | | | | [place] [address] | | | | | | [phone] | | | | | | | | +--------+ + + + + | 05/21/ | Implant | Cardiology | Daljit Singletary, | Remote Device | 2019 | Monitor | | MD Sim [place] | Interrogation | | | | | [place], | (Primary Dx); | | | | | [place] [address] | Pacemaker; | | | | | [phone] | Sinoatrial node | | | | | | dysfunction (HCC) | | | | | | with symptomatic | | | | | | bradycardia | +--------+ + + + + documented as of this encounter Visit Diagnoses Not on filedocumented in this encounter"
--- OUTSIDE RECORDS SUMMARY | ~2020-04-15 | XMS | Encounter Summary ---
Demographics + + + | Address | [address] | | | [place] [address] | + + + | Home Phone [...] + +------+ + | Care Direct Sales Consultant Name | Role | Phone [...] + | 10/25/ | Telephone | [facility] | [place], | Other (patient has | | 2013 | | CARDIOLOGY [address] | Janeen UNDERWRITING SERVICE REPRESENTATIVE [address] | changed his mind) | | | | [place], | [place], | | | | | [place] [address] | [place] [address] | | | | | [phone] | [phone] | | | | | | | [...] W | | | | | | [place], | | | | | | [place] [address] | | | | | | [phone] | | | | | | | | +--------+ + + + + | 05/01/ | Procedure | Cardiology | | | | 2019 | visit | | | | +--------+ + + + + | 05/01/ | Office | Cardiology | Silvia, | | | 2019 | Visit | | PARISA Vernon [address] | | | | | | [place], | | | | | | [place] [address] | | | | | | [phone] | | | | | | | | +--------+ + + + + | 05/21/ | Implant | Cardiology | Daljit Singletary, | Remote Device | | 2019 | Monitor | | [address] [facility] | Interrogation | | | | | [place], | (Primary Dx); | | | | | [place] [address] | Pacemaker; | | | | | [phone] | Sinoatrial node | | | | | | dysfunction (HCC) | | | | | | with symptomatic | | | | | | bradycardia | +--------+ + + + + documented as of this encounter Visit Diagnoses Not on filedocumented in this encounter"
--- OUTSIDE RECORDS SUMMARY | ~2020-04-15 | XMS | Encounter Summary ---
Demographics + + + | Address | [address] | | | [place] [address] | + + + | Home Phone [...] Providers + +------+ + | Care Biodiesel Plant Manager Name | Role | Phone [...] | 03/07/ | Telephone | [facility] | Daljit Singletary, | Results (CareSweepery) | | 2020 | | CARDIOLOGY [address] | MD [address] [place] | | | | | [place], | [place], | | | | | [place] [address] | [place] [address] | | | | | [phone] | | | | | | | [...] | | | | | | [place] [address] | | | | | | [phone] | | | | | | | | +--------+ + + + + | 05/01/ | Procedure | Cardiology | | | | 2019 | visit | | | | +--------+ + + + + | 05/01/ | Office | Cardiology | Silvia, | | | 2019 | Visit | | PARISA Vernon [address] | | | | | | [place], | | | | | | [place] [address] | | | | | | [phone] | | | | | | | | +--------+ + + + + | 05/21/ | Implant | Cardiology | Daljit Singletary, | Remote Device | 2019 | Monitor | | [address] | Interrogation | | | | | [place], | (Primary Dx); | | | | | [place] [address] | Pacemaker; | | | | | [phone] | Sinoatrial node | | | | | | dysfunction (HCC) | | | | | | with symptomatic | | | | | | bradycardia | +--------+ + + + + documented as of this encounter Visit Diagnoses Not on filedocumented in this encounter"
--- OUTSIDE RECORDS SUMMARY | ~2020-04-15 | XMS | Encounter Summary ---
Demographics + + + | Address | [address] | | | [place] [address] | + + + | Home Phone [...] Providers + +------+ + | Care Continuous Improvement Coach Name | Role | Phone | [...] CARDIOLOGY [address] | MD [address] [place] | Dx); SINUS | | | | [place], | [place], | [place] | | | | [place] [address] | [place] [address] | | | | | [phone] | [phone] | | | | | | | [...] | | | | | | [place] [address] | | | | | | [phone] | | | | | | | | +--------+ + + + + | 05/01/ | Procedure | Cardiology | | | | 2019 | visit | | | | +--------+ + + + + | 05/01/ | Office | Cardiology | Silvia, | | | 2019 | Visit | | PARISA Vernon W | | | | | | [place], | | | | | | [place] [address] | | | | | | [phone] | | | | | | | | +--------+ + + + + | 05/21/ | Implant | Cardiology | Daljit Singletary, | Remote Device | | 2019 | Monitor | | [address] [place] | Interrogation | | | | | [place], | (Primary Dx); | | | | | [place] [address] | Pacemaker; | | | | | [phone] | Sinoatrial node | | | | [...]
--- OUTSIDE RECORDS SUMMARY | ~2020-04-15 | XMS | Encounter Summary ---
Demographics + + + | Address | [address] | | | [place] [address] | + + + | Home Phone [...] + + | 10/01/ | Office | [facility] | Mary Bradshaw | Injury of left foot, | | 2013 | Visit | CARE [address] | Guy Larkin MD | initial encounter | | | | [place] | [address] | (Primary Dx) | | | | [address] | [place] | | | | | [phone] | [address] | | | | | | | [...] half hours. He states he needs to pecan picker hi s spouse. I provided patient with Dr. Bradley's card so he may contact us for results. Patient's best phone number: [phone] Renetta Lockwood RN ary Bradshaw MD - [...] | | | | | | [place] [address] | | | | | | [phone] | | | | | | | | +--------+ + + + + | 05/01/ | Procedure | Cardiology | | | | 2019 | visit | | | | +--------+ + + + + | 05/01/ | Office | Cardiology | Silvia, | | | 2019 | Visit | | PARISA Vernon [address] | | | | | | [place], | | | | | | [place] [address] | | | | | | [phone] | | | | | | | | +--------+ + + + + | 05/21/ | Implant | Cardiology | Daljit Singletary, | Remote Device | | 2019 | Monitor | | MD [facility] | Interrogation | | | | | [place], | (Primary Dx); | | | | | [place] [address] | Pacemaker; | | | | | [phone] | Sinoatrial node | | | | [...] + | MISCELLANEOUS LAB | | | [phone] | + +---------+ + + | MISCELANIOUS LAB | | | [phone] | + +---------+ + + documented in this encounter Visit Diagnoses + + | Diagnosis | + + | Injury of left foot, initial encounter - Primary | + + documented in this encounter
--- OUTSIDE RECORDS SUMMARY | ~2020-04-15 | XMS | Encounter Summary ---
Demographics + + + | Address | [address] | | | [place] [address] | + + + | Home Phone [...] Providers + +------+ + | Care Municipal Bond Trader Name | Role | Phone | [...] 2014 | | CARDIOLOGY [address] | WIRELESS SALES CONSULTANT [address] [place] | edema and chest | | | | [place], | [facility] [place] | pain) | | | | [place] [address] | [address] | | | | | [phone] | | | +--------+ + + + [...] | | | | | | [place] [address] | | | | | | [phone] | | | | | | | | +--------+ + + + + | 05/01/ | Procedure | Cardiology | | | | 2019 | visit | | | | +--------+ + + + + | 05/01/ | Office | Cardiology | Silvia, | | | 2019 | Visit | | PARISA [address] | | | | | | [place], | | | | | | [place] [address] | | | | | | [phone] | | | | | | | | +--------+ + + + + | 05/21/ | Implant | Cardiology | Daljit Singletary, | Remote Device | | 2019 | Monitor | | MD Chiquis Oro | Interrogation | | | | | [address], | (Primary Dx); | | | | | [place] [address] | Pacemaker; | | | | | [phone] | Sinoatrial node | | | | | | dysfunction (HCC) | | | | | | with symptomatic | | | | | | bradycardia | +--------+ + + + + documented as of this encounter Visit Diagnoses Not on filedocumented in this encounter"
--- OUTSIDE RECORDS SUMMARY | ~2020-04-15 | XMS | Encounter Summary ---
Demographics + + + | Address | [address] | | | [place] [address] | + + + | Home Phone [...] Team Providers + +------+ + | Care Equal Opportunity Officer Name | Role | Phone | + +------+ + | Michael Amanda DO | PCP | | + +------+ + Encounter Details +--------+ + + + + | Date | Type | Department | Care Team | Description | +--------+ + + + + | 04/03/ | Hospital | [facility] | Jay Gambino MD | | | 2012 - | Encounter | [facility] | [address] | | | | | CARDIAC TRANSPLANT | [address] [place] | | | 04/04/ | | [address] | [place] [address] | | | 2012 | | [place] | [phone] | | | | | [address] | | | | | | [phone] | | | +--------+ + + + [...] 1960 ADMISSION DATE: 04/03/2013 DISCHARGE DATE: 04/04/2013 [id number] / [id number] ADMISSION DIAGNOSES: 1. Symptomatic premature ventricular contractions [...] study and ablati on. MOE GAY ADM:04/03/13 [id number] 04/04/13 [place] DISCHARGE SUMMARY [id number] [facility] PARISA Hughes [facility] MD Meena Pleitez THIS REPORT IS CONFIDENTIAL AND NOT TO BE RELEASED WITHOUT PROPER AUTHORIZATION. [facility] Mr. Gay was taken to the cardiac [...] 180 mg once daily. MOE GAY ADM:04/03/13 [id number] 04/04/13 [place] DISCHARGE SUMMARY [id number] [facility] PARISA Hughes [facility] MD Meena Pleitez THIS REPORT IS CONFIDENTIAL AND NOT TO BE RELEASED WITHOUT PROPER AUTHORIZATION. [facility] 5. Docusate sodium 2 tablets once daily. 6. Marinol 10 mg twice daily. 7. Metoprolol succinate 200 mg once daily. 8. Oxycodone 10 mg 10 mg oral as needed. 9. Oxycodone 30 mg oral twice daily. 10. Pravastatin 40 mg at bedtime. 11. Promethazine 25 mg as needed. 12. Ranitidine 1 to 2 tablets once daily. 13. Como oil 2 tablets twice daily. 14. Valacyclovir 500 mg once daily. There were no new medications or medication dosage changes at time of discharge. PLAN: 1. Mr. Gay will be discharged home on medications as noted above, including his usual m edications of diltiazem and metoprolol. 2. He will be seen and followed by Dr. Gambino on 16 at 9:00 a.m. at [facility], [address]. 3. He will contact our office earlier than scheduled appointment should he have any diffic ulty prior to that time. PARISA Hughes MD A P RICHIE/med #[id number] cc: MD Dona Pleitez ARNP Suwong Wongsuwan, MD Electronically Signed 04/12/13 1400 PARISA Hughes Electronically Signed 05/22/13 1245 Jay Gambino MD MOE GAY ADM:04/03/13 [id number] 04/04/13 [place] DISCHARGE SUMMARY [id number] [facility] PARISA Hughes [facility] Jay Gambino MD R THIS REPORT IS CONFIDENTIAL AND NOT TO BE RELEASED WITHOUT PROPER AUTHORIZATION.Electronica lly signed by Jael Brown at 05/22/2013 1:25 PM Dona Grossman ARNP - 04/04/2013 9:05 AM PDT PATIENT NAME: MOE GAY Sex/Age: M / 53Y : 1960 ADMISSION DATE: 04/03/2013 DISCHARGE DATE: 04/04/2013 [id number] / [id number] ADMISSION DIAGNOSES: 1. Symptomatic premature ventricular contractions [...] and ablati on. MOE GAY Jaimee ADM:04/03/13 [id number] 04/04/13 [place] DISCHARGE SUMMARY [id number] [facility] PARISA Hughes [facility] MD Meena Pleitez THIS REPORT IS CONFIDENTIAL AND NOT TO BE RELEASED WITHOUT PROPER AUTHORIZATION. [facility] Mr. Gay was taken to the cardiac [...] 180 mg once daily. MOE GAY ADM:04/03/13 [id number] 04/04/13 [place] DISCHARGE SUMMARY [id number] [facility] PARISA Hughes [facility] MD Meena Pleitez THIS REPORT IS CONFIDENTIAL AND NOT TO BE RELEASED WITHOUT PROPER AUTHORIZATION. [facility] 5. Docusate sodium 2 tablets once daily. 6. Marinol 10 mg twice daily. 7. Metoprolol succinate 200 mg once daily. 8. Oxycodone 10 mg 10 mg oral as needed. 9. Oxycodone 30 mg oral twice daily. 10. Pravastatin 40 mg at bedtime. 11. Promethazine 25 mg as needed. 12. Ranitidine 1 to 2 tablets once daily. 13. Como oil 2 tablets twice daily. 14. Valacyclovir 500 mg once daily. There were no new medications or medication dosage changes at time of discharge. PLAN: 1. Mr. Gay will be discharged home on medications as noted above, including his usual m edications of diltiazem and metoprolol. 2. He will be seen and followed by Dr. Gambino on 16 at 9:00 a.m. at [facility], [address]. 3. He will contact our office earlier than scheduled appointment should he have any diffic ulty prior to that time. PARISA Hughes MD A P RICHIE/med #[id number] cc: MD Dona Pleitez ARNP Suwong Wongsuwan, MD Electronically Signed 04/12/13 1400 PARISA Hughes MOE GAY ADM:04/03/13 [id number] 04/04/13 [place] DISCHARGE SUMMARY [id number] [facility] PARISA Hughes [facility] MD Meena Pleitez THIS REPORT IS [...] + + +---------+ + + | [place]-3 Fatty | CAPS, one capsule by | [...] | | | | | | [place] [address] | | | | | | [phone] | | | | | | | | +--------+ + + + + | 05/01/ | Procedure | Cardiology | | | | 2019 | visit | | | | +--------+ + + + + | 05/01/ | Office | Cardiology | Silvia, | | | 2019 | Visit | | PARISA [address] | | | | | | [place], | | | | | | [place] [address] | | | | | | [phone] | | | | | | | | +--------+ + + + + | 05/21/ | Implant | Cardiology | Daljit Singletary, | Remote Device | | 2019 | Monitor | | MD Sim [place] | Interrogation | | | | | [place], | (Primary Dx); | | | | | [place] [address] | Pacemaker; | | | | | [phone] | Sinoatrial node | | | | [...] + + + | Glucose | 94Comment: Russian | 65 - 99 mg/dL | [facility] [...] + | [facility] | [address] | [place] [address] | | | [facility] | | | | | [...] + + | YESSY JONES | [address] | [place] [address] | | | [facility] | | | | | LABORATORY | | | | + + + + + documented in this encounter Visit Diagnoses Not on filedocumented in this encounter"
--- OUTSIDE RECORDS SUMMARY | ~2020-04-15 | XMS | Encounter Summary ---
Demographics + + + | Address | [address] | | | [place] [address] | + + + | Home Phone [...] Providers + +------+ + | Care Double Bass Player Name | Role | Phone | [...] Provider Unknown | | | | | [place], [place] | [phone] | | | | | [address] | | | | | | [phone] | | | +--------+ + + + [...] + + + +---------+ + + | [place]-3 Fatty | CAPS, one capsule by [...] | | | | | | | #[id number], exp 07/2016 | | | | | [...] | | | | | | [place] [address] | | | | | | [phone] | | | | | | | | +--------+ + + + + | 05/01/ | Procedure | Cardiology | | | | 2019 | visit | | | | +--------+ + + + + | 05/01/ | Office | Cardiology | Silvia, | | | 2019 | Visit | | PARISA Vernon [address] | | | | | | [place], | | | | | | [place] [address] | | | | | | [phone] | | | | | | | | +--------+ + + + + | 05/21/ | Implant | Cardiology | Daljit Singletary, | Remote Device | | 2020 | Monitor | | [address] [place] | Interrogation | | | | | [place], | (Primary Dx); | | | | | [place] [address] | Pacemaker; | | | | | [phone] | Sinoatrial node | | | | [...]
--- OUTSIDE RECORDS SUMMARY | ~2020-04-15 | XMS | Encounter Summary ---
Demographics + + + | Address | [address] [place] [address] [address] | | | [place] [address] | + + + | Home Phone [...] [place] | | | | | [address] | | + + + + + Care Team Providers + +------+ + | Care Cylinder Handler Name | Role | Phone | [...] | | | [address] | [place], [place] | | | | | Mailcode: Center | [address] | | | | | for Health and | [phone] | | | | | [facility], [facility] 2 | | | | | | [place], [place] | | | | | | [address] | | | | | | [phone] | | | +--------+ + + + [...]
--- OUTSIDE RECORDS SUMMARY | ~2020-04-15 | XMS | Encounter Summary ---
Demographics + + + | Address | [address] | | | [place] [address] | + + + | Home Phone [...] Team Providers + +------+ + | Care Polymerization Oven Operator Name | Role | Phone | + +------+ + | Kirk French MD | PCP | | + +------+ + Encounter Details +--------+ + + + + | Date | Type | Department | Care Team | Description | +--------+ + + + + | 01/18/ | Hospital | [facility] | Conversion | Diagnosis unknown | | 2017 | Encounter | CONVERSION DE[address] | Transaction, | | | | | [address] | Provider Unknown | | | | | [place], [place] | [phone] | | | | | [address] | | | | | | [phone] | | | +--------+ + + + [...] + + + +---------+ + + | [place]-3 Fatty | CAPS, one capsule by | [...] | | | | | | [place] [address] | | | | | | [phone] | | | | | | | | +--------+ + + + + | 05/01/ | Procedure | Cardiology | | | | 2019 | visit | | | | +--------+ + + + + | 05/01/ | Office | Cardiology | Silvia, | | | 2019 | Visit | | PARISA Vernon [address] | | | | | | [place], | | | | | | [place] [address] | | | | | | [phone] | | | | | | | | +--------+ + + + + | 05/21/ | Implant | Cardiology | Daljit Singletary, | Remote Device | | 2019 | Monitor | | MD [facility] | Interrogation | | | | | [place], | (Primary Dx); | | | | | [place] [address] | Pacemaker; | | | | | [phone] | Sinoatrial node | | | | | | dysfunction ([facility]) | | | | | [...]
--- OUTSIDE RECORDS SUMMARY | ~2020-04-15 | XMS | Encounter Summary ---
Demographics + + + | Address | [address] | | | [place] [address] | + + + | Home Phone [...] Providers + +------+ + | Care Core Drill Operator Helper Name | Role | Phone | + +------+ + | Kirk French MD | PCP | | + +------+ + Encounter Details +--------+---------+ + + + | Date | Type | Department | Care Team | Description | +--------+---------+ + + + | 09/26/ | Office | [facility] | Kirk French | Weight loss (Primary | | 2018 | Visit | [facility] | MD [address] | Dx); Bipolar | | | | [facility] [address] | affective disorder, | | | | [address] | [place] [address] | remission status | | | | [place], [place] | [phone] | unspecified (HCC); | | | | [address] | | Mixed anxiety | | | | [phone] | | depressive disorder; | | | [...] Peptic ulcer disease Premature ventricular contraction [facility] health care 06/26/2013 LAST PSA:12/16/2010 RESULT:0.14 [...] [facility] MAIN OR VASECTOMY Social History Socioeconomic History [...] NEEDED FOR CHEST PAIN 250 tablet 0 [place]-3 Fatty Acids (SALMON OIL-1000 PO) CAPS, one capsule by mouth daily twice daily ondansetron (ZOFRAN ODT) 4 mg disintegrating tablet Take 4 mg by mouth every 8 hours as needed for Nausea. ONE TOUCH DELICA LANCETS [facility] [...] PLT 169 06/02/2019 No results found for: XPPBHUNI75 No results found for: FOLATE No results [...] Co multiple ER visits Going again to [facility] tomorrow Already followed by [facility] in [...] dollars a month. We will defer to [facility], perhaps to have some sort of a [...] | | | | | | [place] [address] | | | | | | [phone] | | | | | | | | +--------+ + + + + | 05/01/ | Procedure | Cardiology | | | 2019 | visit | | | | +--------+ + + + + | 05/01/ | Office | Cardiology | Silvia, | | | 2019 | Visit | | PARISA Vernon [address] | | | | | | [place], | | | | | | [place] [address] | | | | | | [phone] | | | | | | | | +--------+ + + + + | 05/21/ | Implant | Cardiology | Daljit Singletary, | Remote Device | | 2019 | Monitor | | [address] [place] | Interrogation | | | | | [place], | (Primary Dx); | | | | | [place] [address] | Pacemaker; | | | | | [phone] | Sinoatrial node | | | | [...]
--- OUTSIDE RECORDS SUMMARY | ~2020-04-15 | XMS | Encounter Summary ---
Demographics + + + | Address | [address] | | | [place] [address] | + + + | Home Phone [...] Providers + +------+ + | Care Acid Bleacher Name | Role | Phone | + [...] + | 11/02/ | Telephone | [facility] | Daljit Singletary, | Other | | 2015 | | CARDIOLOGY [address] | MD [address] [place] | | | | | [place], | [place], | | | | | [place] [address] | [place] [address] | | | | | [phone] | | | | | | | [...] | | | | | | [place] [address] | | | | | | [phone] | | | | | | | [...] | | | | | | [place] [address] | | | | | | [phone] | | | | | | | | +--------+ + + + + | 05/21/ | Implant | Cardiology | Daljit Singletary, | Remote Device | | 2019 | Monitor | | [address] [facility] | Interrogation | | | | | [address], | (Primary Dx); | | | | | [place] [address] | Pacemaker; | | | | | [phone] | Sinoatrial node | | | | | | dysfunction (HCC) | | | | | | with symptomatic | | | | | | bradycardia | +--------+ + + + + documented as of this encounter Visit Diagnoses Not on filedocumented in this encounter"
--- OUTSIDE RECORDS SUMMARY | ~2020-04-15 | XMS | Encounter Summary ---
Demographics + + + | Address | [address] | | | [place] [address] | + + + | Home Phone [...] Team Providers + +------+ + | Care Preventive Medicine Officer Name | Role | Phone | + +------+ + PCP | Unavailable | + +------+ + Encounter Details +--------+ + + + + | Date | Type | Department | Care Team | Description | +--------+ + + + + | 05/02/ | [facility] | [facility] | Jonathan, | | | 2009 | Encounter | [facility] | Martell Cr MD [address] | | | | | CENTER [address] | [place] | | | | | [place] | [place] [address] | | | | | [address] | [phone] | | | | | [phone] | | | +--------+ + + + [...] | | | | | | [place] [address] | | | | | | [phone] | | | | | | | [...] | | | | | | [place] [address] | | | | | | [phone] | | | | | | | | +--------+ + + + + | 05/21/ | Implant | Cardiology | Daljit Singletary, | Remote Device | 2019 | Monitor | | MD [address] [place] | Interrogation | | | | | [place], | (Primary Dx); | | | | | [place] [address] | Pacemaker; | | | | | [phone] | Sinoatrial node | | | | | | dysfunction (HCC) | | | | | | with symptomatic | | | | | | bradycardia | +--------+ + + + + documented as of this encounter Visit Diagnoses Not on filedocumented in this encounter"
--- OUTSIDE RECORDS SUMMARY | ~2020-04-15 | XMS | Encounter Summary ---
Demographics + + + | Address | [address] | | | [place] [address] | + + + | Home Phone [...] Providers + +------+ + | Care House Carpenter Helper Name | Role | Phone | [...] | | | | Sinoatrial | Geri, SITE MONITOR | [address] | | | | | node | [address] | [place], | | | | | dysfunction | [place] | [place] | | | | | (HCC) | [place], [place] | [address] | | | | | Coronary | [address] | Phone: | | | | | artery | Phone: | [phone] | | | | | disease | [phone] | Fax: | | | | | involving | Fax: | [phone] | | | | | koi | [phone] | | | | | | coronary | | | | | | | artery of | | | | | | | koi heart | | | | | | [...] | | | | | | Complete [place] | | | | | | | ECHO HEART | | | | | | | [place] | | | | | | | MPLETE W | | | | | | | [place] | | | | | | | [...] | | | | Sinoatrial | Geri, SITE MONITOR | [address] | | | | | node | [address] | [place], | | | | | dysfunction | [place] | [place] | | | | | ([facility]) | [place], [place] | [address] | | | | | Coronary | [address] | Phone: | | | | | artery | Phone: | [phone] | | | | | disease | [phone] | Fax: | | | | | involving | Fax: | [phone] | | | | | koi | [phone] | | | | | | coronary | | | | | | | artery of | | | | | | | koi heart | | | | | | [...] | | | | | | Complete [place] | | | | | | | ECHO HEART | | | | | | | [place] | | | | | | | MPLETE [place] | | | | | | | [place] | | | | | | | [...] + + + + | 06/16/ | [facility] | [facility] | Geri Angel, | Sinoatrial node | | 2016 | Encounter | MED CTR ECHO [address] | SITE MONITOR [address] | dysfunction (HCC) | | | | [address] [place] | [place], [place] | with symptomatic | | | | [place] [address] | [address] | bradycardia; | | | | [phone] | | Coronary artery | | | | | Juvenal Blake, | disease involving | | | | | Technologist | koi coronary | | | | | | artery of koi | | | | | | heart [...] + + + +---------+ + + | [place]-3 Fatty | CAPS, one capsule by | [...] W | | | | | | [address] [place], | | | | | | [place] [address] | | | | | | [phone] | | | | | | | | +--------+ + + + + | 05/01/ | Procedure | Cardiology | | | | 2019 | visit | | | | +--------+ + + + + | 05/01/ | Office | Cardiology | Silvia, | | | 2019 | Visit | | [address] | | | | | | [address], | | | | | | [place] [address] | | | | | | [phone] | | | | | | | | +--------+ + + + + | 05/21/ | Implant | Cardiology | Sydni Singletary, | Remote Device | | 2019 | Monitor | | [address] [facility] [place] | Interrogation | | | | | [place], | (Primary Dx); | | | | | [place] [address] | Pacemaker; | | | | | [phone] | Sinoatrial node | | | | [...] involving | | | | | | koi coronary | | | | | | artery of koi | | | | | | heart [...] [facility] | | [place] Room Number SARAH Patient | MEDICAL CENT ER | | [id number] Date of Study 06/16/2016 Number | - IMAGING | | Visit Number [id number] | | | Referring Physician JOSE ARMANDO GARCIA Number Date of 1960 | | | Business Intern LUIS FERNANDO DUARTE Age | | | 56 year(s) Interpreting | | | GURJIT TROY | | | Finance Analyst SYDNI SINGLETARY, | | | Gender | | | Male Nurse Procedure Type of Study TTE | | | procedure: ECHO Complete. Procedure dateDate: 06/16/2016Start: 10:55 | | | AM Technical Quality: Adequate visualizationStudy Location: Echo | | | LabIndications: CAD [place] CORONARY ARTERY 414.01/ I25.10 and | | [...] BARRY Room Number SARAH | | Patient [id number] Date of Study 06/16/2016 Number Visit Number | | [id number] Referring Physician JOSE ARMANDO GARCIA Number | | Date of 1960 Business Intern LUIS FERNANDO DUARTE Age | | 56 year(s) Interpreting GURJIT TROY | | Finance Analyst SYDNI SINGLETARY, | | Gender Male NurseProcedureType of Study TTE | | procedure: ECHO Complete.Procedure dateDate: 06/16/2016Start: 10:55 AMTechnical Quality: | | Adequate visualizationStudy Location: Echo LabIndications: CAD [place] CORONARY ARTERY | | 414.01/ I25.10 and [...] + | Performing | Address | City/State/[facility] | Phone Number | | Organization | | | | + + + + + | [address] | [address] | [place] | [phone] | | [facility] | | [address] | | | - IMAGING | | [...] + + | Coronary artery disease involving koi coronary artery of koi heart without | | angina pectoris | + + | Ascending thoracic aortic aneurysm (HCC) Thoracic aneurysm without mention of rupture | + + documented in this encounter"
--- OUTSIDE RECORDS SUMMARY | ~2020-04-15 | XMS | Encounter Summary ---
Demographics + + + | Address | [address] | | | [place] [address] | + + + | Home Phone [...] Providers + +------+ + | Care Rn Stars Name | Role | Phone | + [...] | | | | [place] | [address] | | | | | [address] | | | | | | [phone] | | | +--------+ + + + [...] W | | | | | | [place], | | | | | | [place] [address] | | | | | | [phone] | | | | | | | | +--------+ + + + + | 05/01/ | Procedure | Cardiology | | | | 2019 | visit | | | | +--------+ + + + + | 05/01/ | Office | Cardiology | Silvia, | | | 2019 | Visit | | [address] | | | | | | [place], | | | | | | [place] [address] | | | | | | [phone] | | | | | | | | +--------+ + + + + | 05/21/ | Implant | Cardiology | Daljit Singletary, | Remote Device | 2019 | Monitor | | [address] | Interrogation | | | | | [place], | (Primary Dx); | | | | | [place] [address] | Pacemaker; | | | | | [phone] | Sinoatrial node | | | | | | dysfunction (HCC) | | | | | | with symptomatic | | | | | | bradycardia | +--------+ + + + + documented as of this encounter Visit Diagnoses Not on filedocumented in this encounter"
--- OUTSIDE RECORDS SUMMARY | ~2020-04-15 | XMS | Encounter Summary ---
Demographics + + + | Address | [address] | | | [place] [address] | + + + | Home Phone [...] Providers + +------+ + | Care Client Care Specialist Name | Role | Phone | + +------+ + PCP | Unavailable | + +------+ + Encounter Details +--------+ + + + + | Date | Type | Department | Care Team | Description | +--------+ + + + + | 05/24/ | Hospital | [facility] | Chi Fang | Unspecified Chest | | 2008 - | Encounter | MEDICAL CENTER | MD Kelsey [address] | Pain | | | | CLINICAL DECISION | [place] | | | 05/25/ | | [address] | [address] | | | 2008 | | [place], [place] | [phone] | | | | | [address] | | | | | | [phone] | | | +--------+ + + + [...] W | | | | | | [place], | | | | | | [place] [address] | | | | | | [phone] | | | | | | | | +--------+ + + + + | 05/01/ | Procedure | Cardiology | | | | 2019 | visit | | | | +--------+ + + + + | 05/01/ | Office | Cardiology | Silvia, | | | 2019 | Visit | | [address] | | | | | | [place], | | | | | | [place] [address] | | | | | | [phone] | | | | | | | | +--------+ + + + + | 05/21/ | Implant | Cardiology | Daljit Singletary, | Remote Device | 2019 | Monitor | | MD [address] [place] | Interrogation | | | | | [place], | (Primary Dx); | | | | | [place] [address] | Pacemaker; | | | | | [phone] | Sinoatrial node | | | | [...] Performed At | + + + | [id number] | | | Page 1 RADIOLOGY | | | [facility] [address]/ | | | [facility] | | | CENTER NAME: [place] [address] | | | | | | | | | DATE OF : 1960 ORDER NUMBER: | | | [id number] EXAM DATE/TIME: 05/25/2009 08:00 A ORDERING PHYSICIAN: [...] | | administration of 14.9 mCi of [id number] Myoview. Stress | | | images postinjection [...] | | | images. Prone images demonstrate yazidi of the inferior wall | | | [...] | | A P | | | TSG/earlene/[id number]/ cc: MD FEMI FOSS, | | | MD AMY SULLIVAN, DO | | + + + + + | Procedure Note | + + | Kalpesh Brown - 07/17/2019 2:13 AM PDT | | [id number] Page 1 | | RADIOLOGY CDU 82840/ | | OPO | | [facility] NAME: P[address] GAY | | [place] [address] | | | | DATE OF : 1960 | | | | ORDER NUMBER: [id number] | | EXAM DATE/TIME: 05/25/2009 08:00 A [...] administration of 14.9 mCi | | of [id number] Myoview. Stress images postinjection of 47.7 | [...] | | | | Prone images demonstrate yazidi of the inferior wall nicely. | | [...] | A | | P | | TSG/dc/[id number]/ | | cc: ANGELA MARADIAGA MD | | FEMI MARIE MD | | CHI FANG MD | | AMY BANEGAS DO | + + ECHO Complete (05/25/2009 7:50 AM PDT) + + | Specimen | + + | | + + + + + | Narrative | Performed At | + + + | [id number] | | | Page 1 ECHO [facility] NAME: | | | [place] [address] MEDICAL RECORD #: | | | [id number] | | | DATE OF : 1960 ORDER | | | NUMBER: [id number] EXAM DATE/TIME: 05/25/2009 07:34 PERFORMING | | [...] Excursion: | | | 1.89 cm E-F Grimes: 0.08 m/s HR: 43.51 BPM AV maxP.11 [...] | | | 0.33 m/s TV Dec Grimes: 1.73 m/s2 TV Dec Time: 344.24 ms TV | | | E Bravo: 0.59 m/s TV E/A Ratio: 1.80 TV maxP.40 mmHg TV | | | meanP.44 mmHg TV Vmax: 0.59 m/s TV Vmean: 0.30 m/s TV | | | VTI: 22.88 cm Certified Tumor Registrar: ANTHONY Authenticated by: Edwardo Tee | | | Carlos WINKLER Report Date/Time: 05-25-2009 10:19:52 | | + + + + + | Procedure Note | + + | Kalpesh Brown - 07/17/2019 2:13 AM PDT [id number] | | Page [address] [place] [address] NAME: [place], [place] | | [address] : ACCOUNT #: | | [id number]: DATE OF : 1960ORDER NUMBER: | | [id number] DATE/TIME: 05/25/2009 07:34PERFORMING PHYSICIAN: Edwardo Gonzalez | [...] mlLAESV Index (A-L): 26.03 ml/m2LAAs A2C: 14.93 [id number] A-L | | A2C: 44.50 mlLALs A2C: 4.25 cmLAAs A4C: 18.42 zw6CPCRS A-L A4C: 55.79 mlLALs | | A4C: 5.16 cmAo Diam: 3.91 cmAV Cusp: 2.23 cmLA Diam: 3.79 cmLA/Ao: 0.96%FS: | | 43.37 %EDV(Teich): 146.19 mlEF(Teich): 73.99 %ESV(Teich): 38.01 mlIVSd: 1.57 | | cmIVSs: 1.79 cmLVIDd: 5.48 cmLVIDs: 3.10 cmLVPWd: 1.32 cmLVPWs: 1.79 | | cmSV(Teich): 108.18 mlD-E Excursion: 1.89 cmE-F Grimes: 0.08 m/sHR: 43.51 BPMAV | | maxP.11 mmHgAV meanP.33 mmHgAV Vmax: 1.74 m/Zabrina Vmean: 1.06 m/Zabrina VTI: | | 35.51 cmAVA Vmax: 2.77 cm2AVA (VTI): 2.54 hf9SIDB Dopp: 3.00 l/pkub2IXTE Dopp: | | 6.33 l/minHR: 70.25 BPMLVOT maxP.78 mmHgLVOT meanP.02 mmHgLVSI Dopp: | | 42.76 ml/m2LVSV Dopp: 90.23 mlLVOT Vmax: 1.30 m/sLVOT Vmean: 0.80 m/sLVOT VTI: | | 24.35 cmMV A Bravo: 0.70 m/sMV DecT: 242.46 msMV E Bravo: 0.91 m/sMV E/A Ratio: | | 1.31MV maxP.40 mmHgMV meanP.82 mmHgMV Vmax: 0.92 m/sMV Vmean: 0.37 m/sMV | | VTI: 26.47 cmMVA (VTI): 3.40 ks4Xkykzd e': 0.08 m/sSeptal E/e': 11.24HR: | | 60.55 BPMPV maxP.04 mmHgPV meanP.39 mmHgPV Vmax: 0.87 m/sPV Vmean: 0.55 | | m/sPV VTI: 19.09 cmRAP: 5 mmHgRVSP: 21.72 mmHgTR maxP.72 mmHgTR Vmax: | | 2.04 m/sTV A Bravo: 0.33 m/sTV Dec Grimes: 1.73 m/s2TV Dec Time: 344.24 msTV E Bravo: | | 0.59 m/sTV E/A Ratio: 1.80TV maxP.40 mmHgTV meanP.44 mmHgTV Vmax: 0.59 | | m/sTV Vmean: 0.30 m/sTV VTI: 22.88 cm Certified Tumor Registrar: EMERYuthenticated by: Edwardo Tee | | Carlos [...] | |D-E Excursion: 1.89 cm | |E-F Grimes: 0.08 m/s | |HR: 43.51 BPM | [...] A Bravo: 0.33 m/s | |TV Dec Grimes: 1.73 m/s2 | |TV Dec Time: 344.24 ms | |TV E Bravo: 0.59 m/s | |TV E/A Ratio: 1.80 | |TV maxP.40 mmHg | |TV meanP.44 mmHg | |TV Vmax: 0.59 m/s | |TV Vmean: 0.30 m/s | |TV VTI: 22.88 cm | | | |Certified Tumor Registrar: KVW | |Authenticated by: Edwardo Gonzalez MD | |Report Date/Time: 05-25-2009 10:19:52 | + + CT Head wo Contrast (05/24/2009 12:58 PM PDT) + + | Specimen | + + | | + + + + + | Narrative | Performed At | + + + | [id number] | | | Page 1 RADIOLOGY | | | [facility] [address]/ | | | O[facility] | | | CENTER NAME: [place] [address] | | | | | | | | | DATE OF : 1960 ORDER NUMBER: | | | [id number] EXAM DATE/TIME: 05/24/2009 12:47 P ORDERING PHYSICIAN: [...] | | asymmetrically dense vessel about the [place]. No | | | hydrocephalus. [...] 08:45 P P P | | | TSG/tp/[id number]/ cc: MD ANGEAL AVENDAÑO MD | | | MD AMY HAM DO | | + + + + + | Procedure Note | + + | Kalpesh Brown Conversion - 07/17/2019 2:13 AM PDT | | [id number] Page 1 | | RADIOLOGY CDU 94063/ | | OPO | | [facility] NAME: PINA GAY | | [place] [address] | | | | DATE OF : 1960 | | | | ORDER NUMBER: [id number] | | EXAM DATE/TIME: 05/24/2009 12:47 P [...] is no asymmetrically dense vessel about the [place]. No | | hydrocephalus. Some [...] | P | | P | | [facility]/tp/[id number]/ | | cc: VINAY HILL MD | | ANGELA MARADIAGA MD | | FEMI MARIE MD | | AMY BANEGAS DO | + + XR Chest 2 Vws (05/24/2009 11:31 AM PDT) + + | Specimen | + + | | + + + + + | Narrative | Performed At | + + + | [id number] | | | Page 1 RADIOLOGY | | | CDU 36524/ | | | [facility] | | | CENTER NAME: [place] [address] | | | | | | | | | DATE OF : 1960 ORDER NUMBER: | | | [id number] EXAM DATE/TIME: 05/24/2009 11:19 A ORDERING PHYSICIAN: [...] DT: | | | 05/24/2009 05:38 P [facility]//[id number]/ cc: VINAY HILL MD | | | MD FEMI FOSS MD AMY | | | P BASSAM, DO | | + + + + + | Procedure Note | + + | Kalpesh Brown - 07/17/2019 2:13 AM PDT | | [id number] Page 1 | | RADIOLOGY CDU 27472/ | | OPO | | [facility] NAME: P[address] GAY | | [place] [address] | | | | DATE OF : 1960 | | | | ORDER NUMBER: [id number] | | EXAM DATE/TIME: 05/24/2009 11:19 A [...] | P | | P | | [facility]//[id number]/ | | cc: VINAY HILL MD | | ANGELA MARADIAGA MD | | FEMI MARIE MD | | AMY BANEGAS DO | + + documented in this encounter Visit Diagnoses + + | Diagnosis | + + | Chest pain, unspecified | + + documented in this encounter"
--- OUTSIDE RECORDS SUMMARY | ~2020-04-15 | XMS | Encounter Summary ---
Demographics + + + | Address | [address] | | | [place] [address] | + + + | Home Phone [...] Team Providers + +------+ + | Care Circulation Crew Leader Name | Role | Phone | [...] 2019 | | GASTROENTEROLOGY | [address], [place] | | | | | [address] [place] | [address] [place], [place] | | | | | [address] [place], [place] | [address] | | | | | [address] | | | | | | [phone] | | | +--------+ + + + [...] | | | | | | [place] [address] | | | | | | [phone] | | | | | | | [...] | | | | | | [place] [address] | | | | | | [phone] | | | | | | | | +--------+ + + + + | 05/21/ | Implant | Cardiology | Daljit Singletary, | Remote Device | 2019 | Monitor | | [address] | Interrogation | | | | | [place], | (Primary Dx); | | | | | [place] [address] | Pacemaker; | | | | | [phone] | Sinoatrial node | | | | | | dysfunction (HCC) | | | | | | with symptomatic | | | | | | bradycardia | +--------+ + + + + documented as of this encounter Visit Diagnoses Not on filedocumented in this encounter"
--- OUTSIDE RECORDS SUMMARY | ~2020-04-15 | XMS | Encounter Summary ---
Demographics + + + | Address | [address] | | | [place] [address] | + + + | Home Phone [...] Providers + +------+ + | Care Assurance Senior Manager Name | Role | Phone | [...] 2014 | | CARDIOLOGY [address] | AUDIOLOGY TECHNICIAN [address] | edema and chest | | | | [place], | [facility] [place] | pain) | | | | [place] [address] | [address] | | | | | [phone] | | | +--------+ + + + [...] | | | | | | [place] [address] | | | | | | [phone] | | | | | | | | +--------+ + + + + | 05/01/ | Procedure | Cardiology | | | | 2019 | visit | | | | +--------+ + + + + | 05/01/ | Office | Cardiology | Silvia, | | | 2019 | Visit | | [address] | | | | | | [place], | | | | | | [place] [address] | | | | | | [phone] | | | | | | | | +--------+ + + + + | 05/21/ | Implant | Cardiology | Daljit Singletary, | Remote Device | | 2019 | Monitor | | [address] | Interrogation | | | | | [address] [place], | (Primary Dx); | | | | | [place] [address] | Pacemaker; | | | | | [phone] | Sinoatrial node | | | | | | dysfunction (HCC) | | | | | | with symptomatic | | | | | | bradycardia | +--------+ + + + + documented as of this encounter Visit Diagnoses Not on filedocumented in this encounter"
--- OUTSIDE RECORDS SUMMARY | ~2020-04-15 | XMS | Encounter Summary ---
Demographics + + + | Address | [address] | | | [place] [address] | + + + | Home Phone [...] Providers + +------+ + | Care Case Finishing Machine Adjuster Name | Role | Phone | [...] + | 08/31/ | Refill | [facility] | Kirk French | Medication Refill | | 2018 | | [facility] | MD Brea [address] | | | | | [address] | [address] | | | | | [address] | [place] [address] | | | | | [place], [place] | [phone] | | | | | [address] | | | | | | [phone] | | | +--------+--------+ + + + [...] | | | | | | [place] [address] | | | | | | [phone] | | | | | | | | +--------+ + + + + | 05/01/ | Procedure | Cardiology | | | | 2019 | visit | | | | +--------+ + + + + | 05/01/ | Office | Cardiology | Silvia, | | | 2019 | Visit | | PARISA [address] | | | | | | [place], | | | | | | [place] [address] | | | | | | [phone] | | | | | | | | +--------+ + + + + | 05/21/ | Implant | Cardiology | Daljit Singletary, | Remote Device | | 2019 | Monitor | | [facility] | Interrogation | | | | | [place], | (Primary Dx); | | | | | [place] [address] | Pacemaker; | | | | | [phone] | Sinoatrial node | | | | | | dysfunction (HCC) | | | | | | with symptomatic | | | | | | bradycardia | +--------+ + + + + documented as of this encounter Visit Diagnoses Not on filedocumented in this encounter"
--- OUTSIDE RECORDS SUMMARY | ~2020-04-15 | XMS | Encounter Summary ---
Demographics + + + | Address | [address] | | | [place] [address] | + + + | Home Phone [...] Providers + +------+ + | Care Teaching Aide Name | Role | Phone | + +------+ + | Michael Amanda DO | PCP | | + +------+ + Encounter Details +--------+ + + + + | Date | Type | Department | Care Team | Description | +--------+ + + + + | 10/01/ | Hospital | [facility] | Mary Bradshaw | | | 2013 | Encounter | MED CTR [facility] | Guy Larkin MD | | | | | [address] [place] | [address] | | | | | [place], [place] | [place], [place] | | | | | [address] | [address] | | | | | [phone] | | | +--------+ + + + [...] + + +---------+ + + | [place]-3 Fatty | CAPS, one capsule by | [...] | | 2019 | | | PARISA [address] | | | | | | [place], | | | | | | [place] [address] | | | | | | [phone] | | | | | | | | +--------+ + + + + | 05/01/ | Procedure | Cardiology | | | | 2019 | visit | | | | +--------+ + + + + | 05/01/ | Office | Cardiology | Silvia, | | | 2019 | Visit | | PARISA [place] [address] | | | | | | [place], | | | | | | [place] [address] | | | | | | [phone] | | | | | | | | +--------+ + + + + | 05/21/ | Implant | Cardiology | Daljit Singletary, | Remote Device | | 2019 | Monitor | | [address] [place] [address] | Interrogation | | | | | [place], | (Primary Dx); | | | | | [place] [address] | Pacemaker; | | | | | [phone] | Sinoatrial node | | | | [...] + | MISCELLANEOUS LAB | | | [phone] | + +---------+ + + | MISCELANIOUS LAB | | | [phone] | + +---------+ + + documented in this encounter Visit Diagnoses Not on filedocumented in this encounter"
--- OUTSIDE RECORDS SUMMARY | ~2020-04-15 | XMS | Encounter Summary ---
Demographics + + + | Address | [address] | | | [place] [address] | + + + | Home Phone [...] Team Providers + +------+ + | Care Privacy Attorney Name | Role | Phone | + +------+ + PCP | Unavailable | + +------+ + Encounter Details +--------+ + + + + | Date | Type | Department | Care Team | Description | +--------+ + + + + | 03/08/ | [facility] | [facility] | Emmanuel Daniel MD | | | 2006 | Encounter | MED CTR GENERIC OP | [address] | | | | | CONV DEPT [address] | [address] | | | | | [place], | [address] | | | | | [place] [address] | | | | | | [phone] | | | +--------+ + + + [...] W | | | | | | [place], | | | | | | [place] [address] | | | | | | [phone] | | | | | | | | +--------+ + + + + | 05/01/ | Procedure | Cardiology | | | | 2019 | visit | | | | +--------+ + + + + | 05/01/ | Office | Cardiology | Silvia, | | | 2019 | Visit | | PARISA [address] | | | | | | [place], | | | | | | [place] [address] | | | | | | [phone] | | | | | | | | +--------+ + + + + | 05/21/ | Implant | Cardiology | Daljit Singletary, | Remote Device | 2019 | Monitor | | [address] [place] | Interrogation | | | | | [place], | (Primary Dx); | | | | | [place] [address] | Pacemaker; | | | | | [phone] | Sinoatrial node | | | | | | dysfunction (HCC) | | | | | | with symptomatic | | | | | | bradycardia | +--------+ + + + + documented as of this encounter Visit Diagnoses Not on filedocumented in this encounter"
--- OUTSIDE RECORDS SUMMARY | ~2020-04-15 | XMS | Encounter Summary ---
Demographics + + + | Address | [address] | | | [place] [address] | + + + | Home Phone [...] Team Providers + +------+ + | Care Inspection Manager Name | Role | Phone | [...] + | 06/27/ | Telephone | [facility] | Michael Amanda, | ED Follow-up (s/p | | 2014 | | [facility] [place] | DO [address] | [facility]) | | | | [address] | [place] | | | | | [place] | [address] | | | | | [address] | | | | | | [phone] | | | +--------+ + + + [...] W | | | | | | [place], | | | | | | [place] [address] | | | | | | [phone] | | | | | | | | +--------+ + + + + | 05/01/ | Procedure | Cardiology | | | | 2019 | visit | | | | +--------+ + + + + | 05/01/ | Office | Cardiology | Silvia, | | | 2019 | Visit | | PARISA Vernon [address] | | | | | | [place], | | | | | | [place] [address] | | | | | | [phone] | | | | | | | | +--------+ + + + + | 05/21/ | Implant | Cardiology | Daljit Singletary, | Remote Device | | 2019 | Monitor | | [facility] | Interrogation | | | | | [place], | (Primary Dx); | | | | | [place] [address] | Pacemaker; | | | | | [phone] | Sinoatrial node | | | | | | dysfunction (HCC) | | | | | | with symptomatic | | | | | | bradycardia | +--------+ + + + + documented as of this encounter Visit Diagnoses Not on filedocumented in this encounter"
--- OUTSIDE RECORDS SUMMARY | ~2020-04-15 | XMS | Encounter Summary ---
Demographics + + + | Address | [address] | | | [place] [address] | + + + | Home Phone [...] Providers + +------+ + | Care Freight Claim Investigator Name | Role | Phone | + +------+ + PCP | Unavailable | + +------+ + Encounter Details +--------+ + + + + | Date | Type | Department | Care Team | Description | +--------+ + + + + | 06/03/ | Hospital | [facility] | | | | 2008 | Encounter | MED CTR EMERGENCY | | | | | | [place] [address] | | | | | | [place] | | | | | | [address] | | | | | | [phone] | | | +--------+ + + + [...] | | | | | | [place] [address] | | | | | | [phone] | | | | | | | | +--------+ + + + + | 05/01/ | Procedure | Cardiology | | | | 2019 | visit | | | | +--------+ + + + + | 05/01/ | Office | Cardiology | Silvia, | | | 2019 | Visit | | PARISA Vernon [address] | | | | | | [place], | | | | | | [place] [address] | | | | | | [phone] | | | | | | | | +--------+ + + + + | 05/21/ | Implant | Cardiology | Daljit Singletary, | Remote Device | 2019 | Monitor | | [address] [place] | Interrogation | | | | | [place], | (Primary Dx); | | | | | [place] [address] | Pacemaker; | | | | | [phone] | Sinoatrial node | | | | | | dysfunction (HCC) | | | | | | with symptomatic | | | | | | bradycardia | +--------+ + + + + documented as of this encounter Visit Diagnoses Not on filedocumented in this encounter"
--- OUTSIDE RECORDS SUMMARY | ~2020-04-15 | XMS | Encounter Summary ---
Demographics + + + | Address | [address] | | | [place] [address] | + + + | Home Phone [...] Providers + +------+ + | Care Business Administrator Name | Role | Phone [...] | | | | CENTER [address] | [place], [place] | (Primary Dx) | | | | [place], [place] | [address] | | | | | [address] | | | | | | [phone] | | | +--------+ + + + [...] W | | | | | | [place], | | | | | | [place] [address] | | | | | | [phone] | | | | | | | | +--------+ + + + + | 05/01/ | Procedure | Cardiology | | | | 2019 | visit | | | | +--------+ + + + + | 05/01/ | Office | Cardiology | Silvia, | | | 2019 | Visit | | [address] | | | | | | [place], | | | | | | [place] [address] | | | | | | [phone] | | | | | | | | +--------+ + + + + | 05/21/ | Implant | Cardiology | Daljit Singletary, | Remote Device | | 2019 | Monitor | | [facility] | Interrogation | | | | | [place], | (Primary Dx); | | | | | [place] [address] | Pacemaker; | | | | | [phone] | Sinoatrial node | | | | [...] mL/min/1.73m2 | [facility] | | | [place] | RATE,ESTIMATED | | MEDICAL | | | | mL/min/1.90p2Daig than | | CENTER - | | [...] Total | appended report. These | | [facility] | | | | results have been [...] | [address] | [place], [place] | [phone] | | [facility] | | [address] | | | - LABORATORY | | [...] | | | | ANGELA MARADIAGA MD ([id number]) | | | | | | on [...] [address] | [place] | [phone] | | [facility] | | [address] | | | - LABORATORY | | [...] + | [facility] | [address] | [place] | [phone] | | [facility] | | [address] | | | - LABORATORY | | [...]
--- OUTSIDE RECORDS SUMMARY | ~2020-04-15 | XMS | Encounter Summary ---
Demographics + + + | Address | [address] | | | [place] [address] | + + + | Home Phone [...] Providers + +------+ + | Care Flight Data Technician Name | Role | Phone | [...] + | 11/26/ | Telephone | [facility] | [place]via, | Appointment (Needs | | 2017 | | CARDIOLOGY [address] | PARISA [address] | rescheduled) | | | | [place], | [place], | | | | | [place] [address] | [place] [address] | | | | | [phone] | [phone] | | | | | | | [...] | | | | | | [place] [address] | | | | | | [phone] | | | | | | | | +--------+ + + + + | 05/01/ | Procedure | Cardiology | | | | 2020 | visit | | | | +--------+ + + + + | 05/01/ | Office | Cardiology | Silvia, | | | 2019 | Visit | | PARISA Vernon [address] | | | | | | [place], | | | | | | [place] [address] | | | | | | [phone] | | | | | | | | +--------+ + + + + | 05/21/ | Implant | Cardiology | Daljit Singletary, | Remote Device | 2019 | Monitor | | [address] | Interrogation | | | | | [place], | (Primary Dx); | | | | | [place] [address] | Pacemaker; | | | | | [phone] | Sinoatrial node | | | | | | dysfunction (HCC) | | | | | | with symptomatic | | | | | | bradycardia | +--------+ + + + + documented as of this encounter Visit Diagnoses Not on filedocumented in this encounter"
--- OUTSIDE RECORDS SUMMARY | ~2020-04-15 | XMS | Encounter Summary ---
Demographics + + + | Address | [address] | | | [place] [address] | + + + | Home Phone [...] Providers + +------+ + | Care Senior Applications Developer Name | Role | Phone [...] [address] [place] | | | | | [place], [place] | [address] | | | | | [address] | [place] [address] | | | | | [phone] | [phone] | | | | | | | [...] | | | | | | [place] [address] | | | | | | [phone] | | | | | | | [...] | | | | | | [place] [address] | | | | | | [phone] | | | | | | | | +--------+ + + + + | 05/21/ | Implant | Cardiology | Daljit Singletary, | Remote Device | 2019 | Monitor | | [address] [place] | Interrogation | | | | | [place], | (Primary Dx); | | | | | [place] [address] | Pacemaker; | | | | | [phone] | Sinoatrial node | | | | [...]
--- OUTSIDE RECORDS SUMMARY | ~2020-04-15 | XMS | Encounter Summary ---
Demographics + + + | Address | [address] | | | [place] [address] | + + + | Home Phone [...] Team Providers + +------+ + | Care Breakdown Worker Name | Role | Phone | [...] 2019 | | GASTROENTEROLOGY | [address] [place] | Recommendations | | | | [address] [place] | [address] [place], [place] | | | | | [address] [place], [place] | [address] | | | | | [address] | | | | | | [phone] | | | +--------+ + + + [...] | | | | | | [place] [address] | | | | | | [phone] | | | | | | | | +--------+ + + + + | 05/01/ | Procedure | Cardiology | | | | 2019 | visit | | | | +--------+ + + + + | 05/01/ | Office | Cardiology | Silvia, | | | 2019 | Visit | | PARISA Vernon [address] | | | | | | [place], | | | | | | [place] [address] | | | | | | [phone] | | | | | | | | +--------+ + + + + | 05/21/ | Implant | Cardiology | Daljit Singletary, | Remote Device | 2019 | Monitor | | 401 [facility] | Interrogation | | | | | [place], | (Primary Dx); | | | | | [place] [address] | Pacemaker; | | | | | [phone] | Sinoatrial node | | | | | | dysfunction (HCC) | | | | | | with symptomatic | | | | | | bradycardia | +--------+ + + + + documented as of this encounter Visit Diagnoses Not on filedocumented in this encounter"
--- OUTSIDE RECORDS SUMMARY | ~2020-04-15 | XMS | Encounter Summary ---
Demographics + + + | Address | [address] | | | [place] [address] | + + + | Home Phone [...] Team Providers + +------+ + | Care Tetryl Wringer Operator Name | Role | Phone | [...] + | 06/04/ | Hospital | [facility] | Sariah, | Cervical spinal | | 2016 | Encounter | MED CTR XRAY [address] | [place], SPRING FITTER HELPER [address] | stenosis | | | | [place] | [address] | | | | | [place] [address] | [place] [address] | | | | | [phone] | [phone] | | | | | | | [...] + + + +---------+ + + | [place]-3 Fatty | CAPS, one capsule by | [...] | | | | | | [place] [address] | | | | | | [phone] | | | | | | | | +--------+ + + + + | 05/01/ | Procedure | Cardiology | | | | 2019 | visit | | | | +--------+ + + + + | 05/01/ | Office | Cardiology | Silvia, | | | 2019 | Visit | | PARISA Vernon [address] | | | | | | [place], | | | | | | [place] [address] | | | | | | [phone] | | | | | | | | +--------+ + + + + | 05/21/ | Implant | Cardiology | Daljit Singletary, | Remote Device | | 2019 | Monitor | | [address] [facility] | Interrogation | | | | | [place], | (Primary Dx); | | | | | [place] [address] | Pacemaker; | | | | | [phone] | Sinoatrial node | | | | [...] | | | | | thecal, Starting [facility] 06/04/16 at | | | | [...]
--- OUTSIDE RECORDS SUMMARY | ~2020-04-15 | XMS | Encounter Summary ---
Demographics + + + | Address | [address] | | | [place] [address] | + + + | Home Phone [...] Providers + +------+ + | Care Repairer Cylinder Heads Name | Role | Phone | + +------+ + | Kirk French MD | PCP | | + +------+ + Encounter Details +--------+ + + + + | Date | Type | Department | Care Team | Description | +--------+ + + + + | 07/05/ | Hospital | [facility] | Conversion | Acute neck pain | | 2017 | Encounter | [facility] | Transaction, | | | | | [address] | Provider Unknown | | | | | [address] [place], [place] | [phone] | | | | | [address] | | | | | | [phone] | Apolonia Ruano | | | | | | MD Shelly [address] | | | | | | [address] | | | | | | [place], [place] | | | | | | [address] | | | | | | [phone] | | | | | | | [...] + + + +---------+ + + | [place]-3 Fatty | CAPS, one capsule by | [...] | | | | | | [place] [address] | | | | | | [phone] | | | | | | | | +--------+ + + + + | 05/01/ | Procedure | Cardiology | | | | 2019 | visit | | | | +--------+ + + + + | 05/01/ | Office | Cardiology | Silvia, | | | 2019 | Visit | | PARISA Vernon [address] | | | | | | [place], | | | | | | [place] [address] | | | | | | [phone] | | | | | | | | +--------+ + + + + | 05/21/ | Implant | Cardiology | Daljit Singletary, | Remote Device | 2019 | Monitor | | [facility] | Interrogation | | | | | [place], | (Primary Dx); | | | | | [place] [address] | Pacemaker; | | | | | [phone] | Sinoatrial node | | | | [...]
--- OUTSIDE RECORDS SUMMARY | ~2020-04-15 | XMS | Encounter Summary ---
Demographics + + + | Address | [address] | | | [place] [address] | + + + | Home Phone [...] Providers + +------+ + | Care Oil Exploration Engineer Name | Role | Phone | [...] Show | | 2012 | | [facility]IC[facility] [place] | DO [address] | | | | | [address] | [place] | | | | | [place] | [address] | | | | | [address] | | | | | | [phone] | | | +--------+ + + + [...] W | | | | | | [place], | | | | | | [place] [address] | | | | | | [phone] | | | | | | | | +--------+ + + + + | 05/01/ | Procedure | Cardiology | | | | 2019 | visit | | | | +--------+ + + + + | 05/01/ | Office | Cardiology | [place]via, | | | 2019 | Visit | | [address] | | | | | | [place], | | | | | | [place] [address] | | | | | | [phone] | | | | | | | | +--------+ + + + + | 05/21/ | Implant | Cardiology | Daljit Singletary, | Remote Device | 2019 | Monitor | | [address] | Interrogation | | | | | [place], | (Primary Dx); | | | | | [place] [address] | Pacemaker; | | | | | [phone] | Sinoatrial node | | | | | | dysfunction (HCC) | | | | | | with symptomatic | | | | | | bradycardia | +--------+ + + + + documented as of this encounter Visit Diagnoses Not on filedocumented in this encounter"
--- OUTSIDE RECORDS SUMMARY | ~2020-04-15 | XMS | Encounter Summary ---
Demographics + + + | Address | [address] [place] [address] [address] | | | [place] [address] | + + + | Home Phone [...] [place] | | | | | [address] | | + + + + + Care Team Providers + +------+ + | Care Claims Adjustor Name | Role | Phone | + +------+ + | Darion Holden DO | PCP | | + +------+ + Encounter Details +--------+ + + + + | Date | Type | Department | Care Team | Description | +--------+ + + + + | 01/22/ | Transcribe | [facility] | Transcribe | | | 2020 | Orders | [facility] [address] | Encounter, Provider, | | | | | Tremayne Crane Mailcode: | [address] | | | | | [address] [place] | [place] [address] | | | | | [facility], | | | | | | [address] | | | | | | [place], [place] | | | | | | [address] | | | | | | [phone] | | | +--------+ + + + [...]
--- OUTSIDE RECORDS SUMMARY | ~2020-04-15 | XMS | Encounter Summary ---
Demographics + + + | Address | [address] | | | [place] [address] | + + + | Home Phone [...] Providers + +------+ + | Care Auto Mechanic Name | Role | Phone | [...] [place] | | | | | | [address] | | | | | | [phone] | | | +--------+ + + + [...] | | | | | | [place] [address] | | | | | | [phone] | | | | | | | | +--------+ + + + + | 05/01/ | Procedure | Cardiology | | | | 2019 | visit | | | | +--------+ + + + + | 05/01/ | Office | Cardiology | Silvia, | | | 2019 | Visit | | PARISA [address] | | | | | | [place], | | | | | | [place] [address] | | | | | | [phone] | | | | | | | | +--------+ + + + + | 05/21/ | Implant | Cardiology | Daljit Singletary, | Remote Device | 2019 | Monitor | | [address] [place] | Interrogation | | | | | [place], | (Primary Dx); | | | | | [place] [address] | Pacemaker; | | | | | [phone] | Sinoatrial node | | | | | | dysfunction (HCC) | | | | | | with symptomatic | | | | | | bradycardia | +--------+ + + + + documented as of this encounter Visit Diagnoses Not on filedocumented in this encounter"
--- OUTSIDE RECORDS SUMMARY | ~2020-04-15 | XMS | Encounter Summary ---
Demographics + + + | Address | [address] | | | [place] [address] | + + + | Home Phone [...] Providers + +------+ + | Care Fire Prevention Research Engineer Name | Role | Phone | + +------+ + | Kirk French MD | PCP | | + +------+ + Encounter Details +--------+ + + + + | Date | Type | Department | Care Team | Description | +--------+ + + + + | 12/24/ | Orders Only | [facility] | Conversion | | | 2018 | | [facility] | Transaction, | | | | | [facility] [address] | Provider Unknown | | | | | [address] | [phone] | | | | | [place] | | | | | | [address] | | | | | | [phone] | | | +--------+ + + + [...] | | | | | | [place] [address] | | | | | | [phone] | | | | | | | [...] | | | | | | [place] [address] | | | | | | [phone] | | | | | | | | +--------+ + + + + | 05/21/ | Implant | Cardiology | Daljit Singletary, | Remote Device | | 2020 | Monitor | | [address] [facility] | Interrogation | | | | | [place], | (Primary Dx); | | | | | [place] [address] | Pacemaker; | | | | | [phone] | Sinoatrial node | | | | [...] This external order was created through the [employer]. | EXTERNAL LAB | | Historically [...]
--- OUTSIDE RECORDS SUMMARY | ~2020-04-15 | XMS | Encounter Summary ---
Demographics + + + | Address | [address] [place] [place] [address] [address]O | | | [place] [address] | + + + | Home Phone [...] [place] | | | | | [address] | | + + + + + Care Team Providers + +------+ + | Care Paper Cone Machine Tender Name | Role | Phone [...] as of this encounter Progress Notes Interface, Electrotyper In - 07/19/2006 3:05 AM PDTCLINIC DATE: 06/13/2002 ORTHOPEDIC CLINIC REFERRING PHYSICIAN: Eugene Vera D.O. [address] [place] [address] Mr. Sanchez is a new patient. He [...] proceed. Martell Allen M.D. ELIZABETH / KATTY [id number] / [id number] / [id number] / [id number] cc: Eugene Vera D.O. [address] [place] [id number] signed by Interface, Electrotyper In at 07/19/2006 3:0 5 AM PDTdocumented in this encounter Plan of Treatment Not on filedocumented as of this encounter Visit Diagnoses Not on filedocumented in this encounter
--- OUTSIDE RECORDS SUMMARY | ~2020-04-15 | XMS | Encounter Summary ---
Demographics + + + | Address | [address] | | | [place] [address] | + + + | Home Phone [...] Team Providers + +------+ + | Care Slinger Sequins Name | Role | Phone | + +------+ + | Kirk French MD | PCP | | + +------+ + Encounter Details +--------+ + + + + | Date | Type | Department | Care Team | Description | +--------+ + + + + | 01/05/ | Anesthesia | [facility] | Jarett Barakat | | | 2019 | Event | MED CTR MP INTRA OP | P, MD [address] | | | | | [address] | [place], [place] | | | | | [place], [place] | [address] | | | | | [address] | [phone] | | | | | [phone] | | | +--------+ + + + [...] explained and consent obtained. Patient transported to [facility], | | | 4 | | [...] | 01/05/19950 by | | eral | zloy-jbg-dzrdic catheter system; | Kasie Natarajan RN | [...] | | | | | | [place] [address] | | | | | | [phone] | | | | | | | | +--------+ + + + + | 05/01/ | Procedure | Cardiology | | | | 2019 | visit | | | | +--------+ + + + + | 05/01/ | Office | Cardiology | Silvia, | | | 2019 | Visit | | PARISA Vernon [address] | | | | | | [place], | | | | | | [place] [address] | | | | | | [phone] | | | | | | | | +--------+ + + + + | 05/21/ | Implant | Cardiology | Daljit Singletary, | Remote Device | 2019 | Monitor | | [place] [address] | Interrogation | | | | | [place], | (Primary Dx); | | | | | [place] [address] | Pacemaker; | | | | | [phone] | Sinoatrial node | | | | [...]
--- OUTSIDE RECORDS SUMMARY | ~2020-04-15 | XMS | Encounter Summary ---
Demographics + + + | Address | [address] | | | [place] [address] | + + + | Home Phone [...] Providers + +------+ + | Care Endoscopy Support Specialist Name | Role | Phone [...] + | 12/09/ | Telephone | [facility] | Emmanuel Daniel MD | Appointment (EGD, | | 2017 | | GASTROENTEROLOGY | [address], [place] | colon Rescheduled to | | | | [address] [place] | [address] [place] | December 24 due to | | | | [address] [place] | [address] | illness) | | | | [address] | | | | | | [phone] | | | +--------+ + + + [...] | | | | | | [place] [address] | | | | | | [phone] | | | | | | | | +--------+ + + + + | 05/01/ | Procedure | Cardiology | | | | 2019 | visit | | | | +--------+ + + + + | 05/01/ | Office | Cardiology | Silvia, | | | 2019 | Visit | | PARISA Vernon [address] | | | | | | [place], | | | | | | [place] [address] | | | | | | [phone] | | | | | | | | +--------+ + + + + | 05/21/ | Implant | Cardiology | Daljit Singletary, | Remote Device | | 2019 | Monitor | | [address] [place] | Interrogation | | | | | [place], | (Primary Dx); | | | | | [place] [address] | Pacemaker; | | | | | [phone] | Sinoatrial node | | | | | | dysfunction (HCC) | | | | | | with symptomatic | | | | | | bradycardia | +--------+ + + + + documented as of this encounter Visit Diagnoses Not on filedocumented in this encounter"
--- OUTSIDE RECORDS SUMMARY | ~2020-04-15 | XMS | Encounter Summary ---
Demographics + + + | Address | [address] [place] [address] [address] LOZANO | | | [place] [address] | + + + | Home Phone [...] [place] | | | | | [address] | | + + + + + Care Team Providers + +------+ + | Care Center Mgr Name | Role | Phone | [...] | | | | | Unintentiona | [place], [place] | | | | | | l weight | [address] | | | | | | loss | Phone: | | | | | | Procedures | [phone] | | | | | | CONSULT TO | Fax: | | | | | | NON - IVETTE | [phone] | | | | | | PROVIDER [...] | 2019 | | Center at [facility] [address] | MD [address] | normal, recommend | | | | [address] | [place], [place] | hyoscyamine) | | | | Mailcode: [place] | [address] | | | | | for Health and | [phone] | | | | | [facility], [facility] 2 | | | | | | [place], [place] | | | | | | [address] | | | | | | [phone] | | | +--------+ + + + [...]
--- OUTSIDE RECORDS SUMMARY | ~2020-04-15 | XMS | Encounter Summary ---
Demographics + + + | Address | [address] | | | [place] [address] | + + + | Home Phone [...] Providers + +------+ + | Care Interior Plant Caretaker Name | Role | Phone | + [...] [place] | | | | | [address] [place], [place] | [address] | | | | | [address] | | | | | | [phone] | | | +--------+ + + + [...] | | | | | [place], | | | | | | [place] [address] | | | | | | [phone] | | | | | | | | +--------+ + + + + | 05/01/ | Procedure | Cardiology | | | | 2019 | visit | | | | +--------+ + + + + | 05/01/ | Office | Cardiology | Silvia, | | | 2019 | Visit | | [address] | | | | | | [place], | | | | | | [place] [address] | | | | | | [phone] | | | | | | | | +--------+ + + + + | 05/21/ | Implant | Cardiology | Daljit Singletary, | Remote Device | | 2020 | Monitor | | [facility] | Interrogation | | | | | [place], | (Primary Dx); | | | | | [place] [address] | Pacemaker; | | | | | [phone] | Sinoatrial node | | | | [...]
--- OUTSIDE RECORDS SUMMARY | ~2020-04-15 | XMS | Encounter Summary ---
Demographics + + + | Address | [address] | | | [place] [address] | + + + | Home Phone [...] Providers + +------+ + | Care Hand Rigger Name | Role | Phone | + +------+ + | Kirk French MD | PCP | | + +------+ + Encounter Details +--------+ + + + + | Date | Type | Department | Care Team | Description | +--------+ + + + + | 01/07/ | Hospital | [facility] | Conversion | | | 2017 | Encounter | [facility] | Transaction, | | | | | ULTRASOUND 9[address] | Provider Unknown | | | | | [address] [facility] [address] | [phone] | | | | | [place] | | | | | | [address] | Kirk French | | | | | [phone] | MD Eva Guidry | | | | | | [address] [place], | | | | | | [place] [address] | | | | | | [phone] | | | | | | | [...] + + + +---------+ + + | [place]-3 Fatty | CAPS, one capsule by | [...] | | | | | | [place] [address] | | | | | | [phone] | | | | | | | | +--------+ + + + + | 05/01/ | Procedure | Cardiology | | | | 2019 | visit | | | | +--------+ + + + + | 05/01/ | Office | Cardiology | Silvia, | | | 2019 | Visit | | [address] | | | | | | [place], | | | | | | [place] [address] | | | | | | [phone] | | | | | | | | +--------+ + + + + | 05/21/ | Implant | Cardiology | Daljit Singletary, | Remote Device | | 2019 | Monitor | | [address] [place] | Interrogation | | | | | [place], | (Primary Dx); | | | | | [place] [address] | Pacemaker; | | | | | [phone] | Sinoatrial node | | | | | | dysfunction (HCC) | | | | | | with symptomatic | | | | | | bradycardia | +--------+ + + + + documented as of this encounter Visit Diagnoses Not on filedocumented in this encounter"
--- OUTSIDE RECORDS SUMMARY | ~2020-04-15 | XMS | Encounter Summary ---
Demographics + + + | Address | [address] | | | [place] [address] | + + + | Home Phone [...] Providers + +------+ + | Care Assistant In Nursing Name | Role | Phone | [...] + | 11/05/ | Telephone | [facility] | Daljit Singletary, | Chest Pain | | 2016 | | CARDIOLOGY [address] | MD [address] [place] | | | | | [place], | [place], | | | | | [place] [address] | [place] [address] | | | | | [phone] | [phone] | | | | | | | [...] W | | | | | | [place], | | | | | | [place] [address] | | | | | | [phone] | | | | | | | | +--------+ + + + + | 05/01/ | Procedure | Cardiology | | | | 2019 | visit | | | | +--------+ + + + + | 05/01/ | Office | Cardiology | Silvia, | | | 2019 | Visit | | PARISA Vernon [address] | | | | | | [place], | | | | | | [place] [address] | | | | | | [phone] | | | | | | | | +--------+ + + + + | 05/21/ | Implant | Cardiology | Daljit Singletary, | Remote Device | | 2019 | Monitor | | [facility] | Interrogation | | | | | [place], | (Primary Dx); | | | | | [place] [address] | Pacemaker; | | | | | [phone] | Sinoatrial node | | | | | | dysfunction (HCC) | | | | | | with symptomatic | | | | | | bradycardia | +--------+ + + + + documented as of this encounter Visit Diagnoses Not on filedocumented in this encounter"
--- OUTSIDE RECORDS SUMMARY | ~2020-04-15 | XMS | Encounter Summary ---
Demographics + + + | Address | [address] | | | [place] [address] | + + + | Home Phone [...] Providers + +------+ + | Care Analysis Analyst Name | Role | Phone | + +------+ + PCP | Unavailable | + +------+ + Encounter Details +--------+ + + + + | Date | Type | Department | Care Team | Description | +--------+ + + + + | 02/07/ | [facility] | [facility] | Unknown, | | | 1995 | Encounter | MED CTR XRAY [address] | MD Stefany . | | | | | [place] | | | | | | [place] [address] | (Fax) | | | | | [phone] | | | +--------+ + + + [...] | | | | | | [place] [address] | | | | | | [phone] | | | | | | | | +--------+ + + + + | 05/01/ | Procedure | Cardiology | | | | 2019 | visit | | | | +--------+ + + + + | 05/01/ | Office | Cardiology | Silvia, | | | 2019 | Visit | | PARISA Vernon [address] | | | | | | [place], | | | | | | [place] [address] | | | | | | [phone] | | | | | | | | +--------+ + + + + | 05/21/ | Implant | Cardiology | Daljit Singletary, | Remote Device | | 2019 | Monitor | | [address] [place] | Interrogation | | | | | [place], | (Primary Dx); | | | | | [place] [address] | Pacemaker; | | | | | [phone] | Sinoatrial node | | | | | | dysfunction (HCC) | | | | | | with symptomatic | | | | | | bradycardia | +--------+ + + + + documented as of this encounter Visit Diagnoses Not on filedocumented in this encounter"
--- OUTSIDE RECORDS SUMMARY | ~2020-04-15 | XMS | Encounter Summary ---
Demographics + + + | Address | [address] | | | [place] [address] | + + + | Home Phone [...] Providers + +------+ + | Care Supervisor Dairy Sanitation Name | Role | Phone | + [...] | | | type | | [place] [address] | | | | | Unintentiona | | Phone: | | | | | l weight | | [phone] | | | | | loss | | Fax: | | | | | Pacemaker | | [phone] | | | | | Opioid type [...] | | | | | | [place] | | | | | | | COLONOSCOPY | | | | | | | FLX DX | | | | | | | W/COLLJ SPEC | | | | | | | WHEN PFRMD | | | | | | | ME | | | | | | | COLONOSCOPY | | | | | | | W/BIOPSY | | | | | | | SINGLE/MULTI | | | | | | | PLE ME | | | | | | | COLSC FLX | | | | | | | W/RMVL OF | | | | | | | TUMOR POLYP | | | | | | | LESION SNARE | | | | | | | TQ ME | | | | | | | [...] + + | 01/21/ | Hospital | [facility] | Darin Gandhi | Rectal bleeding; | | 2019 | Encounter | MED CTR MP INTRA OP | MD Jacek [address] | Diarrhea, | | | | [address] | [address] [place] | unspecified type; | | | | [place], [place] | [place] [address] | Unintentional weight | | | | [address] | [phone] | loss; Opioid type | | | | [phone] | | dependence, | | | | [...] | | | | | | [place] [address] | | | | | | [phone] | | | | | | | | +--------+ + + + + | 05/01/ | Procedure | Cardiology | | | | 2019 | visit | | | | +--------+ + + + + | 05/01/ | Office | Cardiology | Silvia, | | | 2019 | Visit | | [address] | | | | | | [place], | | | | | | [place] [address] | | | | | | [phone] | | | | | | | | +--------+ + + + + | 05/21/ | Implant | Cardiology | Daljit Singletary, | Remote Device | | 2019 | Monitor | | [address] [place] | Interrogation | | | | | 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
--- OUTSIDE RECORDS SUMMARY | ~2020-04-15 | XMS | Encounter Summary ---
Demographics + + + | Address | [address] | | | [place] [address] | + + + | Home Phone [...] Providers + +------+ + | Care Primary Therapist Name | Role | Phone | [...] + + | 12/14/ | Telephone | [facility] | Emmanuel Daniel MD | Follow-up, Office | | 2019 | | GASTROENTEROLOGY | [address], [place] | Visit (wants to | | | | [address] [place] | [address] | cancel his office | | | | [address] | [address] | appointment today) | | | | [address] | | | | | | [phone] | | | +--------+ + + + [...] | | | | | | [place] [address] | | | | | | [phone] | | | | | | | [...] | | | | | | [place] [address] | | | | | | [phone] | | | | | | | | +--------+ + + + + | 05/21/ | Implant | Cardiology | Daljit Singleatry, | Remote Device | | 2019 | Monitor | | [address] | Interrogation | | | | | [place], | (Primary Dx); | | | | | [place] [address] | Pacemaker; | | | | | [phone] | Sinoatrial node | | | | | | dysfunction (HCC) | | | | | | with symptomatic | | | | | | bradycardia | +--------+ + + + + documented as of this encounter Visit Diagnoses Not on filedocumented in this encounter"
--- OUTSIDE RECORDS SUMMARY | ~2020-04-15 | XMS | Encounter Summary ---
Demographics + + + | Address | [address] | | | [place] [address] | + + + | Home Phone [...] + +------+ + | Care Customer Service Specialist Name | Role | Phone [...] 2019 | | GASTROENTEROLOGY | [address], [place] | | | | | [address] [place] | [address] [place], [place] | | | | | [address] [place], [place] | [address] | | | | | [address] | | | | | | [phone] | | | +--------+ + + + [...] | | | | | | [place] [address] | | | | | | [phone] | | | | | | | | +--------+ + + + + | 05/01/ | Procedure | Cardiology | | | | 2019 | visit | | | | +--------+ + + + + | 05/01/ | Office | Cardiology | [place], | | | 2019 | Visit | | [address] | | | | | | [place], | | | | | | [place] [address] | | | | | | [phone] | | | | | | | | +--------+ + + + + | 05/21/ | Implant | Cardiology | Daljit Singletary, | Remote Device | 2019 | Monitor | | MD [address] | Interrogation | | | | | [place], | (Primary Dx); | | | | | [place] [address] | Pacemaker; | | | | | [phone] | Sinoatrial node | | | | | | dysfunction (HCC) | | | | | | with symptomatic | | | | | | bradycardia | +--------+ + + + + documented as of this encounter Visit Diagnoses Not on filedocumented in this encounter"
--- OUTSIDE RECORDS SUMMARY | ~2020-04-15 | XMS | Encounter Summary ---
Demographics + + + | Address | [address] | | | [place] [address] | + + + | Home Phone [...] Providers + +------+ + | Care Revenue Stamp Clerk Name | Role | Phone | [...] Show | | 2012 | | MEDICINE [place] | DO [address] | | | | | [address] | [place] | | | | | [place] | [address] | | | | | [address] | | | | | | [phone] | | | +--------+ + + + [...] | | | | | | [place] [address] | | | | | | [phone] | | | | | | | [...] | | | | | | [place] [address] | | | | | | [phone] | | | | | | | | +--------+ + + + + | 05/21/ | Implant | Cardiology | Daljit Singletary, | Remote Device | 2019 | Monitor | | MD [address] | Interrogation | | | | | [place], | (Primary Dx); | | | | | [place] [address] | Pacemaker; | | | | | [phone] | Sinoatrial node | | | | | | dysfunction (HCC) | | | | | | with symptomatic | | | | | | bradycardia | +--------+ + + + + documented as of this encounter Visit Diagnoses Not on filedocumented in this encounter"
--- OUTSIDE RECORDS SUMMARY | ~2020-04-15 | XMS | Encounter Summary ---
Demographics + + + | Address | [address] | | | [place] [address] | + + + | Home Phone [...] + +------+ + | Care Director Of Cardiac Rehabilitation Name | Role | Phone | [...] | disease) (Primary | | | | [place], | [place], | Dx); Other chest | | | | [place] [address] | [place] [address] | pain; Chest pain; | | | | [phone] | [phone] | Coronary artery | | | | [...] Sanchez Date: October 23, 2014 : 1960 Gas Engine Operator Generators: Kailey Pruitt RN Device Petroleum Blending Plant Operator: Kerlink Sense (mV) Impedance (?) Capture (V) Capture (ms) A Lead 2.80-4.00 407 1.500 0.09 RV Lead 22.40-31.36 519 2.000 0.09 LV Lead Battery Impedance (?): 658 Battery Voltage (V): 2.79 [place] Interval (ms): 155 AR Interval (ms): 240 VA Conduction: Mode Switch Events: 1 % of time: <0.1 -POLYMERIZATION HELPER: <0.1% AP-POLYMERIZATION HELPER: <0.1% -VS: 13.8% AP-VS: 86.1% POLYMERIZATION HELPER: Magnetic Rate: 85 LINDA: 65 LEAH: [...] Kailey Pruitt RN 10/23/2014 15:22 ames Janeen, SATURATOR OPERATOR - 10/23/2014 2:22 PM PST PATIENT [...] needed for Chest pain. 25 tablet 12 Monson-3 Fatty Acids (SALMON OIL-1000 PO) CAPS, one capsule by mouth daily twice daily ONE TOUCH DELICA LANCETS [facility] Check glucose as needed [...] attenuation cannot completely be ruled out. D. [facility] 12/25/13, shows non critical coronary artery [...] He is i n class I-II of [place] Heart Association functional class. There are no [...] to go back in 3 days to [place] for an attempt of ablation under general [...] dizziness. He is in class I-II of [place] Heart Association functional class. There are n [...] might need r e-check on CTA I, PAIRSA Russell, saw this patient under the direct supervision of Fabrice Jaeger MD Portions of this chart may have been created with Couplewise voice recognition software. Occasi onal wrong-word or [...] | | | | | | [place], | | | | | | [place] [address] | | | | | | [phone] | | | | | | | | +--------+ + + + + | 05/01/ | Procedure | Cardiology | | | | 2019 | visit | | | | +--------+ + + + + | 05/01/ | Office | Cardiology | [place], | | | 2019 | Visit | | [address] | | | | | | [place], | | | | | | [place] [address] | | | | | | [phone] | | | | | | | | +--------+ + + + + | 05/21/ | Implant | Cardiology | Daljit Singletary, | Remote Device | | 2019 | Monitor | | [address] [place] | Interrogation | | | | | [place], | (Primary Dx); | | | | | [place] [address] | Pacemaker; | | | | | [phone] | Sinoatrial node | | | | [...] 23, 2014 : | | | 1960 Gas Engine Operator Generators: Kailey Pruitt RN Device Petroleum Blending Plant Operator: | | | Cardium Therapeuticstronic Sense (mV) Impedance (?) Capture (V) Capture (ms) A | | | Lead 2.80-4.00 407 1.500 0.09 RV Lead 22.40-31.36 519 2.000 0.09 | | | LV Lead Battery Impedance (?): 658 Battery Voltage (V): 2.79 | | | AZ Interval (ms): 155 AR Interval (ms): 240 VA Conduction: Mode | | | Switch Events: 1 % of time: <0.1 -POLYMERIZATION HELPER: <0.1% AP-POLYMERIZATION HELPER: <0.1% -VS: | | | 13.8% AP-VS: 86.1% POLYMERIZATION HELPER: Magnetic Rate: 85 LINDA: 65 LEAH: [...] | | Date: October 23, 2014DOB: 1960 Gas Engine Operator Generators: Kailey Pruitt RNDevice Petroleum Blending Plant Operator: | | Medtronic Sense (mV) Impedance (?) Capture (V) Capture (ms) A Lead 2.80-4.00 407 1.500 | | 0.09 RV Lead 22.40-31.36 519 2.000 0.09 LV Lead Battery Impedance (?): 658 Battery | | Voltage (V): 2.79 [place] Interval (ms): 155 AR Interval (ms): 240 VA Conduction: Mode | | Switch Events: 1 % of time: <0.1 -POLYMERIZATION HELPER: <0.1% AP-POLYMERIZATION HELPER: <0.1% -VS: 13.8% AP-VS: 86.1% POLYMERIZATION HELPER: | | Magnetic Rate: 85 LINDA: 65 [...] concerns. Electronically signed by: Kailey | | Trcay Pruitt RN 10/23/2014 15:22 | |Mode: AAIR<=>DDDR [...] of unspecified type | | of vessel, wilton or graft | + + | Other chest pain | + + | Chest pain Chest pain, unspecified | + + | Coronary artery disease Coronary atherosclerosis of unspecified type of vessel, | | wilton or graft | + + | Pacemaker [...]
--- OUTSIDE RECORDS SUMMARY | ~2020-04-15 | XMS | Encounter Summary ---
Demographics + + + | Address | [address] | | | [place] [address] | + + + | Home Phone [...] Team Providers + +------+ + | Care Lotus Notes Developer Name | Role | Phone | + +------+ + PCP | Unavailable | + +------+ + Encounter Details +--------+ + + + + | Date | Type | Department | Care Team | Description | +--------+ + + + + | 10/29/ | Hospital | [facility] | Pia Akhtar | | | 2003 | Encounter | CONVERSION DEP [address] | MD [address] | | | | | [address] | [address] | | | | | [place] | [place] [address] | | | | | [address] | [phone] | | | | | [phone] | | | +--------+ + + + [...] W | | | | | | [place], | | | | | | [place] [address] | | | | | | [phone] | | | | | | | | +--------+ + + + + | 05/01/ | Procedure | Cardiology | | | | 2019 | visit | | | | +--------+ + + + + | 05/01/ | Office | Cardiology | [place] | | | 2019 | Visit | | [address] | | | | | | [place], | | | | | | [place] [address] | | | | | | [phone] | | | | | | | | +--------+ + + + + | 05/21/ | Implant | Cardiology | Daljit Singletary, | Remote Device | 2019 | Monitor | | [address] [place] | Interrogation | | | | | [place], | (Primary Dx); | | | | | [place] [address] | Pacemaker; | | | | | [phone] | Sinoatrial node | | | | | | dysfunction (HCC) | | | | | | with symptomatic | | | | | | bradycardia | +--------+ + + + + documented as of this encounter Visit Diagnoses Not on filedocumented in this encounter"
--- OUTSIDE RECORDS SUMMARY | ~2020-04-15 | XMS | Encounter Summary ---
Demographics + + + | Address | [address] | | | [place] [address] | + + + | Home Phone [...] Team Providers + +------+ + | Care Synthetic Department Supervisor Name | Role | Phone [...] + + | 08/30/ | Refill | [facility] | Kirk French | Medication Refill | | 2019 | | [facility] | MD Bre[address] | | | | | [facility] | | | | | [address] | [place] [address] | | | | | [place], [place] | [phone] | | | | | [address] | | | | | | [phone] | | | +--------+--------+ + + + [...] | | | | | | [place] [address] | | | | | | [phone] | | | | | | | | +--------+ + + + + | 05/01/ | Procedure | Cardiology | | | | 2019 | visit | | | | +--------+ + + + + | 05/01/ | Office | Cardiology | Silvia, | | | 2019 | Visit | | PARISA Vernon [address] | | | | | | [place], | | | | | | [place] [address] | | | | | | [phone] | | | | | | | | +--------+ + + + + | 05/21/ | Implant | Cardiology | Daljit Singletary, | Remote Device | | 2019 | Monitor | | [facility] | Interrogation | | | | | [place], | (Primary Dx); | | | | | [place] [address] | Pacemaker; | | | | | [phone] | Sinoatrial node | | | | | | dysfunction (HCC) | | | | | | with symptomatic | | | | | | bradycardia | +--------+ + + + + documented as of this encounter Visit Diagnoses Not on filedocumented in this encounter"
--- OUTSIDE RECORDS SUMMARY | ~2020-04-15 | XMS | Encounter Summary ---
Demographics + + + | Address | [address] | | | [place] [address] | + + + | Home Phone [...] Providers + +------+ + | Care Cigar Packer Name | Role | Phone | [...] 2019 | | GASTROENTEROLOGY | [address], [place] | | | | | [address] [place] | [address] [place], [place] | | | | | [address] [place], [place] | [address] | | | | | [address] | | | | | | [phone] | | | +--------+ + + + [...] | | | | | | [place] [address] | | | | | | [phone] | | | | | | | | +--------+ + + + + | 05/01/ | Procedure | Cardiology | | | | 2019 | visit | | | | +--------+ + + + + | 05/01/ | Office | Cardiology | Silvia, | | | 2019 | Visit | | PARISA Vernon [address] | | | | | | [place], | | | | | | [place] [address] | | | | | | [phone] | | | | | | | | +--------+ + + + + | 05/21/ | Implant | Cardiology | Daljit Singletary, | Remote Device | 2019 | Monitor | | MD [address]iqu[address] | Interrogation | | | | | [place], | (Primary Dx); | | | | | [place] [address] | Pacemaker; | | | | | [phone] | Sinoatrial node | | | | | | dysfunction (HCC) | | | | | | with symptomatic | | | | | | bradycardia | +--------+ + + + + documented as of this encounter Visit Diagnoses Not on filedocumented in this encounter"
--- OUTSIDE RECORDS SUMMARY | ~2020-04-15 | XMS | Encounter Summary ---
Demographics + + + | Address | [address] | | | [place] [address] | + + + | Home Phone [...] Team Providers + +------+ + | Care Welder Plastic Name | Role | Phone | + [...] [address] | | | | | [address] | [place] | | | | | [phone] | [address] | | | | | | [phone] | | | | | | | [...] | | | | | | [place] [address] | | | | | | [phone] | | | | | | | [...] | | | | | | [place] [address] | | | | | | [phone] | | | | | | | | +--------+ + + + + | 05/21/ | Implant | Cardiology | SunshinecherelleDaljit, | Remote Device | | 2019 | Monitor | | [address] [facility] | Interrogation | | | | | [place], | (Primary Dx); | | | | | [place] [address] | Pacemaker; | | | | | [phone] | Sinoatrial node | | | | [...]
--- OUTSIDE RECORDS SUMMARY | ~2020-04-15 | XMS | Encounter Summary ---
Demographics + + + | Address | [address] | | | [place] [address] | + + + | Home Phone [...] Providers + +------+ + | Care Windows Server Architect Name | Role | Phone | [...] | 03/02/ | Telephone | [facility] [place] | Daljit Singletary, | Other | | 2013 | | CARDIOLOGY [address] | MD [address] [place] | | | | | [place], | [place], | | | | | [place] [address] | [place] [address] | | | | | [phone] | [phone] | | | | | | | [...] | | | | | | [place], | | | | | | [place] [address] | | | | | | [phone] | | | | | | | | +--------+ + + + + | 05/01/ | Procedure | Cardiology | | | | 2019 | visit | | | | +--------+ + + + + | 05/01/ | Office | Cardiology | Silvia, | | | 2019 | Visit | | PARISA [address] | | | | | | [place], | | | | | | [place] [address] | | | | | | [phone] | | | | | | | | +--------+ + + + + | 05/21/ | Implant | Cardiology | Daljit Singletary, | Remote Device | 2019 | Monitor | | MD [address] [place] | Interrogation | | | | | [place], | (Primary Dx); | | | | | [place] [address] | Pacemaker; | | | | | [phone] | Sinoatrial node | | | | | | dysfunction (HCC) | | | | | | with symptomatic | | | | | | bradycardia | +--------+ + + + + documented as of this encounter Visit Diagnoses Not on filedocumented in this encounter"
--- OUTSIDE RECORDS SUMMARY | ~2020-04-15 | XMS | Encounter Summary ---
Demographics + + + | Address | [address] | | | [place] [address] | + + + | Home Phone [...] Team Providers + +------+ + | Care Pm Technician Name | Role | Phone | [...] | 2018 | Changes | GASTROENTEROLOGY | Bulb Filler | | | | | [address] [facility] | | | | | | [address] [place] | | | | | | [address] | | | | | | [phone] | | | +--------+ + + + [...] W | | | | | | [place], | | | | | | [place] [address] | | | | | | [phone] | | | | | | | | +--------+ + + + + | 05/01/ | Procedure | Cardiology | | | | 2019 | visit | | | | +--------+ + + + + | 05/01/ | Office | Cardiology | Silvia, | | | 2019 | Visit | | PARISA [place] [address] | | | | | | [place], | | | | | | [place] [address] | | | | | | [phone] | | | | | | | | +--------+ + + + + | 05/21/ | Implant | Cardiology | Daljit Singletary, | Remote Device | | 2020 | Monitor | | [address] [facility] | Interrogation | | | | | [place], | (Primary Dx); | | | | | [place] [address] | Pacemaker; | | | | | [phone] | Sinoatrial node | | | | | | dysfunction (HCC) | | | | | | with symptomatic | | | | | | bradycardia | +--------+ + + + + documented as of this encounter Visit Diagnoses Not on filedocumented in this encounter"
--- OUTSIDE RECORDS SUMMARY | ~2020-04-15 | XMS | Encounter Summary ---
Demographics + + + | Address | [address] | | | [place] [address] | + + + | Home Phone [...] Team Providers + +------+ + | Care Seamark Advanced Operator Maintainer Name | Role | Phone | + +------+ + PCP | Unavailable | + +------+ + Encounter Details +--------+ + + + + | Date | Type | Department | Care Team | Description | +--------+ + + + + | 07/20/ | [facility] | [facility] | Hunter Antunez, | | | 2009 - | Encounter | MED CTR MED ONC | [address] | | | | | [address] [place] | [place] | | | 07/24/ | | [place] [address] | [address] | | | 2009 | | [phone] | | | +--------+ + + + [...] W | | | | | | [place], | | | | | | [place] [address] | | | | | | [phone] | | | | | | | | +--------+ + + + + | 05/01/ | Procedure | Cardiology | | | | 2019 | visit | | | | +--------+ + + + + | 05/01/ | Office | Cardiology | [place]via | | | 2019 | Visit | | PARISA Vernon [address] | | | | | | [place], | | | | | | [place] [address] | | | | | | [phone] | | | | | | | | +--------+ + + + + | 05/21/ | Implant | Cardiology | Daljit Singletary, | Remote Device | 2019 | Monitor | | MD [address] [place] | Interrogation | | | | | [place], | (Primary Dx); | | | | | [place] [address] | Pacemaker; | | | | | [phone] | Sinoatrial node | | | | | | dysfunction (HCC) | | | | | | with symptomatic | | | | | | bradycardia | +--------+ + + + + documented as of this encounter Visit Diagnoses Not on filedocumented in this encounter"
--- OUTSIDE RECORDS SUMMARY | ~2020-04-15 | XMS | Encounter Summary ---
Demographics + + + | Address | [address] | | | [place] [address] | + + + | Home Phone [...] Providers + +------+ + | Care Finishing And Shipping Supervisor Name | Role | Phone | [...] + + | 02/15/ | [facility] | Jay Cohn PA | DIDIER (obstructive | | 2012 | Visit | SLEEP DISORDER [address] | [address] | sleep apnea) | | | | [address] [place] [place] | [place] | (Primary Dx) | | | | [place] [address] | [address] | | | | | [phone] | | | +--------+---------+ + + + [...] AM PDTGo [facility] including: Nasal pillows or [...] pillows obtained from: [facility] [place] pressure is: 13 cm CPAP download shows [...] to go to [facility] [place] to replace his equipment, but it had [...] to go to [facility] [place] to g et a new mask and filter. He is to work toward wearing his CPAP 100% of the time he is asle ep. I will follow up again in 1 month, sooner prn. Fifteen minutes were spent [id number], wi th the majority of time spent [...] | | | | | | [place] [address] | | | | | | [phone] | | | | | | | [...] | | | | | | [place] [address] | | | | | | [phone] | | | | | | | | +--------+ + + + + | 05/21/ | Implant | Cardiology | Daljit Singletary, | Remote Device | | 2020 | Monitor | | [address] [facility] | Interrogation | | | | | [place], | (Primary Dx); | | | | | [place] [address] | Pacemaker; | | | | | [phone] | Sinoatrial node | | | | [...]
--- OUTSIDE RECORDS SUMMARY | ~2020-04-15 | XMS | Encounter Summary ---
Demographics + + + | Address | [address] | | | [place] [address] | + + + | Home Phone [...] Providers + +------+ + | Care Inspection Clerk Name | Role | Phone | [...] | 04/07/ | Office | [facility] | Matthew Uriarte | Left ureteral | | 2019 | Visit | [address] | MD Tawanna [address] | calculus (Primary | | | | [place], [place] | [place]VE [place] | Dx); Kidney stones | | | | [address] | [address] | | | | | [phone] | | | +--------+---------+ + + + [...] April 13, 2019 at 7:45 AM at [facility]. Please report to the [facility] no later than 6:15 AM. REMEMBER: NOTHING TO EAT OR DRINK AFTER MIDNIGHT April 12, 2019. NO FISH OIL, ASPIRIN OR ASPIRIN PRODUCTS ONE WEEK PRIOR TO SURGERY. Tylenol and Advil are OK. You will need to get the following testing done prior to surgery: CBC, BMP YOU WILL NEED TO BRING A PHOTOGRAMMETRIST WITH YOU THE DAY OF SURGERY. Call us at [phone] with any questions. [] Pain management booklet [...] [employer] Peptic ulcer disease Premature ventricular contraction [facility] care 06/26/2013 LAST PSA:12/16/2010 RESULT:0.14 LAST [...] CV LHC; Surgeon: Daljit Singletary MD; Location: [facility] CV LAB CARDIAC CATHERIZATION N/A 01/25/2019 Procedure: CV Cor Angio; Surgeon: Daljit Singletary MD; Location: [facility] CV LAB COLONOSCOPY N/A 12/24/2017 Procedure: COLONOSCOPY; Surgeon: Emmanuel Daniel MD; Location: [facility] MEDICAL PROCEDURE UNIT COLONOSCOPY N/A 01/05/2019 Procedure: COLONOSCOPY; Surgeon: Emmanuel Daniel MD; Location: [facility] MEDICAL PROCEDURE UNIT EGD 12/24/2017 HARDWARE [...] Procedure: EGD; Surgeon: Emmanuel Daniel MD; Location: [facility] MEDICAL PROCEDURE UNIT UPPER GASTROINTESTINAL ENDOSCOPY N/A 01/05/2019 Procedure: EGD; Surgeon: Emmanuel Daniel MD; Location: [facility] MEDICAL PROCEDURE UNIT VASECTOMY Family History: [...] EVERY DAY, Disp: 90 tablet, Rfl: 3 [facility] Natural Products [...] 911, Disp: 100 ta blet, Rfl: 3 [place]-3 Fatty Acids (SALMON OIL-1000 PO), CAPS, one capsule by mouth daily twice daily , Disp: , Rfl: ondansetron (ZOFRAN ODT) 4 mg disintegrating tablet, Take 4 mg by mouth., Disp: , Rfl: ONE TOUCH DELICA LANCETS [facility], Check glucose as needed [...] have not thoroughly proofread this note, and field applications specialist errors are very likely to occur. [...] W | | | | | | [place], | | | | | | [place] [address] | | | | | | [phone] | | | | | | | | +--------+ + + + + | 05/01/ | Procedure | Cardiology | | | | 2019 | visit | | | | +--------+ + + + + | 05/01/ | Office | Cardiology | Silvia, | | | 2019 | Visit | | [place] [address] | | | | | | [place], | | | | | | [place] [address] | | | | | | [phone] | | | | | | | | +--------+ + + + + | 05/21/ | Implant | Cardiology | Daljit Singletary, | Remote Device | 2019 | Monitor | | MD [address] [place] | Interrogation | | | | | [place], | (Primary Dx); | | | | | [place] [address] | Pacemaker; | | | | | [phone] | Sinoatrial node | | | | [...]
--- OUTSIDE RECORDS SUMMARY | ~2020-04-15 | XMS | Encounter Summary ---
Demographics + + + | Address | [address] | | | [place] [address] | + + + | Home Phone [...] Providers + +------+ + | Care Tax Manager Public Name | Role | Phone | + [...] [address] | | | | | [place], | [place], | | | | | [place] [address] | [place] [address] | | | | | [phone] | [phone] | | | | | | | [...] | | | | | | [place] [address] | | | | | | [phone] | | | | | | | | +--------+ + + + + | 05/01/ | Procedure | Cardiology | | | | 2019 | visit | | | | +--------+ + + + + | 05/01/ | Office | Cardiology | Silvia, | | | 2019 | Visit | | PARISA Vernon [address] | | | | | | [place], | | | | | | [place] [address] | | | | | | [phone] | | | | | | | | +--------+ + + + + | 05/21/ | Implant | Cardiology | Daljit Singletary, | Remote Device | 2019 | Monitor | | [address] [place] | Interrogation | | | | | [place], | (Primary Dx); | | | | | [place] [address] | Pacemaker; | | | | | [phone] | Sinoatrial node | | | | | | dysfunction (HCC) | | | | | | with symptomatic | | | | | | bradycardia | +--------+ + + + + documented as of this encounter Visit Diagnoses Not on filedocumented in this encounter"
--- OUTSIDE RECORDS SUMMARY | ~2020-04-15 | XMS | Encounter Summary ---
Demographics + + + | Address | [address] | | | [place] [address] | + + + | Home Phone [...] Providers + +------+ + | Care Diesel Tractor Operator Name | Role | Phone | + +------+ + | Kirk French MD | PCP | | + +------+ + Encounter Details +--------+ + + + + | Date | Type | Department | Care Team | Description | +--------+ + + + + | 04/07/ | Hospital | [facility] | Pia Akhtar | Spinal stenosis of | | 2016 | Encounter | MED CTR XRAY [address] | MD [address] | lumbar region | | | | [place] | [address] | | | | | [place] [address] | [place] [address] | | | | | [phone] | [phone] | | | | | | | [...] + + + +---------+ + + | [place]-3 Fatty | CAPS, one capsule by | [...] | | | | | | [place] [address] | | | | | | [phone] | | | | | | | | +--------+ + + + + | 05/01/ | Procedure | Cardiology | | | | 2019 | visit | | | | +--------+ + + + + | 05/01/ | Office | Cardiology | Silvia | | | 2019 | Visit | | Janeen, CONCRETE MASON [address] | | | | | | [place], | | | | | | [place] [address] | | | | | | [phone] | | | | | | | | +--------+ + + + + | 05/21/ | Implant | Cardiology | Daljit Singletary, | Remote Device | | 2020 | Monitor | | [address] [place] | Interrogation | | | | | [place], | (Primary Dx); | | | | | [place] [address] | Pacemaker; | | | | | [phone] | Sinoatrial node | | | | [...]
--- OUTSIDE RECORDS SUMMARY | ~2020-04-15 | XMS | Encounter Summary ---
Demographics + + + | Address | [address] | | | [place] [address] | + + + | Home Phone [...] Author | [facility] | | [...] Providers + +------+ + | Care Heel Cementer Machine Name | Role | Phone | + +------+ + | Kirk French MD | PCP | | + +------+ + Encounter Details +--------+ + + + + | Date | Type | Department | Care Team | Description | +--------+ + + + + | 06/03/ | Hospital | [facility] IP | Conversion | Back pain, | | 2014 | Encounter | CONVERSION DEP [address] | Transaction, | unspecified location | | | | [address] | Provider Unknown | | | | | [place], [place] | [phone] | | | | | [address] | (Fax) | | | | | [phone] | | | +--------+ + + + [...] + + + +---------+ + + | [place]-3 Fatty | CAPS, one capsule by | [...] | | | | | | | #[id number], exp 07/2016 | | | | | [...] | | | | | | [place] [address] | | | | | | [phone] | | | | | | | | +--------+ + + + + | 05/01/ | Procedure | Cardiology | | | | 2019 | visit | | | | +--------+ + + + + | 05/01/ | Office | Cardiology | Silvia, | | | 2019 | Visit | | PARISA Vernon [address] | | | | | | [place], | | | | | | [place] [address] | | | | | | [phone] | | | | | | | | +--------+ + + + + | 05/21/ | Implant | Cardiology | Daljit Singletary, | Remote Device | | 2019 | Monitor | | [facility] | Interrogation | | | | | [place], | (Primary Dx); | | | | | [place] [address] | Pacemaker; | | | | | [phone] | Sinoatrial node | | | | [...]
--- OUTSIDE RECORDS SUMMARY | ~2020-04-15 | XMS | Encounter Summary ---
Demographics + + + | Address | [address] | | | [place] [address] | + + + | Home Phone [...] Providers + +------+ + | Care Petroleum Refining Firer Name | Role | Phone | + +------+ + | Michael Amanda DO | PCP | | + +------+ + Encounter Details +--------+ + + + + | Date | Type | Department | Care Team | Description | +--------+ + + + + | 01/30/ | Hospital | [facility] | Jay Gambino MD | | | 2012 - | Encounter | HEART MED CTR | [address] | | | | | CARDIAC TELEMETRY | [address] [place], | | | 01/31/ | | [address] | [place] [address] | | | 2012 | | [place] | [phone] | | | | | [address] | | | | | | [phone] | | | +--------+ + + + [...] 1960 ADMISSION DATE: 01/30/2013 DISCHARGE DATE: 01/31/2013 [id number] / [id number] ADMITTING DIAGNOSES: 1. Symptomatic PVCs. 2. Sinus [...] 150, 1 to 2 tabs daily. 10. [place]-3 fatty acids 1000 mg b.i.d. MOE GAY ADM:01/30/13 [id number] 01/31/13 DIS [place] DISCHARGE SUMMARY [id number] [facility] Carmela Cuevas PAC B [facility] MD Meena Pleitez THIS REPORT IS CONFIDENTIAL AND NOT TO BE RELEASED WITHOUT PROPER AUTHORIZATION. [facility] 11. Valacyclovir 500 mg daily. B. New medication added: Diltiazem CD 180 a day. FOLLOWUP: The patient has a followup appointment on 03/02/2013 at 10:[address] Niles meza at the [facility] [place], [address]. No heavy lifting or driving times 48 hours. YOANA Barlow MD A P [facility] #[id number] cc: MD Carmela Pleitez PA-C Electronically Signed 02/06/13 1616 LAKESHIA Barlow Electronically Signed 02/20/13 0731 Jay Gambino MD MOE GAY ADM:01/30/13 [id number] 01/31/13 DIS [place] DISCHARGE SUMMARY [id number] [facility] LAKESHIA Barlow B [facility] Jay Gambino MD R THIS REPORT IS CONFIDENTIAL AND NOT TO BE RELEASED WITHOUT PROPER AUTHORIZATION.Electronica lly signed by Jael Brown at 02/20/2013 7:31 AM FRANCYZzCarmela Moncada - 02/01/20 13 8:44 AM PDT PATIENT NAME: MOE GAY Sex/Age: M / 52Y : 1960 ADMISSION DATE: 01/30/2013 DISCHARGE DATE: 01/31/2013 [id number] / [id number] ADMITTING DIAGNOSES: 1. Symptomatic PVCs. 2. Sinus [...] 150, 1 to 2 tabs daily. 10. [place]-3 fatty acids 1000 mg b.i.d. MOE GAY ADM:01/30/13 [id number] 01/31/13 DIS [place] DISCHARGE SUMMARY [id number] [facility] LAKESHIA Barlow B [facility] MD Meena Pleitez THIS REPORT IS CONFIDENTIAL AND NOT TO BE RELEASED WITHOUT PROPER AUTHORIZATION. [facility] 11. Valacyclovir 500 mg daily. B. New medication added: Diltiazem CD 180 a day. FOLLOWUP: The patient has a followup appointment on 03/02/2013 at 10:[address] Niles meza at the [facility] [place], [address]. No heavy lifting or driving times 48 hours. YOANA Barlow MD A P [facility] #[id number] cc: MD Carmela Pleitez PA-C Electronically Signed 02/06/13 1616 LAKESHIA Barlow MOE GAY ADM:01/30/13 [id number] 01/31/13 DIS [place] DISCHARGE SUMMARY [id number] [facility] LAKESHIA Barlow ES B [facility] Jay Gambino MD R THIS REPORT [...] + + +---------+ + + | [place]-3 Fatty | CAPS, one capsule by | [...] | | | | | | [place] [address] | | | | | | [phone] | | | | | | | | +--------+ + + + + | 05/01/ | Procedure | Cardiology | | | | 2019 | visit | | | | +--------+ + + + + | 05/01/ | Office | Cardiology | Silvia, | | | 2019 | Visit | | PARISA Vernon [address] | | | | | | [place], | | | | | | [place] [address] | | | | | | [phone] | | | | | | | | +--------+ + + + + | 05/21/ | Implant | Cardiology | Daljit Singletary, | Remote Device | | 2019 | Monitor | | MD [address] [place] | Interrogation | | | | | [place], | (Primary Dx); | | | | | [place] [address] | Pacemaker; | | | | | [phone] | Sinoatrial node | | | | [...] + + | YESSY JONES | [address] | [place] [address] | | | [facility] | [...] + + | TRENTONE ROBERT | [address] [place]. | [place] [address] | | | [facility] | | | | | LABORATORY | | | | + + + + + | PROVIDERAULE SACRED | | | | | [facility] | | | | | [...] + + | Glucose | 113 (H)Comment: Guyanese | 65 - 99 mg/dL | [facility] | | | | Diabetes Association [...] + + | YESSY JONES | [address] | [place] [address] | | | [facility] | | | | | LABORATORY | | | | + + + + + | YESSY JONES | | | | | [facility] | | | | | LABORATORY | | | | + + + + + documented in this encounter Visit Diagnoses Not on filedocumented in this encounter"
--- OUTSIDE RECORDS SUMMARY | ~2020-04-15 | XMS | Encounter Summary ---
Demographics + + + | Address | [address] | | | [place] [address] | + + + | Home Phone [...] Team Providers + +------+ + | Care Band Cutter Name | Role | Phone | [...] unspecified | [address] | [address] | | | | | type | [address] | [place], | | | | | Procedures | [place], | [place] | | | | | [place] | [place] [address] | [address] | | | | | Stress Test | Phone: | Phone: | | | | | (Vasodilator | [phone] | [phone] | | | | | ) CHG | Fax: | Fax: | | | | | MYOCARDIAL | [phone] | [phone] | | | | | SPECT | | | | | | | MULTIPLE | | | | | | | STUDIES CT | | | | | | | CV STRS TST | | | | | | | XERS&/OR RX | | | | | | | CONT ECG W/O | | | | | | | I&R CT | | | | | | [...] | type | [address] | [address] | | | | | Procedures | [place] | [place], | | | | | F[place] | [place] | [place] [address] | | | | | | [address] | Phone: | | | | | | Phone: | [phone] | | | | | | [phone] | Fax: | | | | | | Fax: | [phone] | | | | | | [phone] | | +--------+ + + + + + Encounter Details +--------+---------+ + + + | Date | Type | Department | Care Team | Description | +--------+---------+ + + + | 06/27/ | Office | [facility] | Sydni Singletary, | Pacemaker | | 2017 | Visit | CARDIOLOGY [address] | [address] [facility] | reprogramming/check | | | | [address] [place], | [place], | DO NOT DELETE | | | | [place] [address] | [place] [address] | (Primary Dx); Chest | | | | [phone] | [phone] | pain, unspecified | | | | [...] of non-critical coronary artery d isease involving king salmon coronary artery of king salmon heart without angina pectoris, essential h ypertension, [...] that time, patient has been seen at [facility] emergency department on 018 for chest pain [...] Preventative health care Coronary artery disease involving king salmon coronary artery of king salmon heart without angina pectoris Cannabis abuse, daily [...] by mouth every evening 90 tablet 0 [facility] Natural Products (OSTEO [...] 3RD DOSE, CALL 911 100 tablet 3 [place]-3 Fatty Acids (SALMON OIL-1000 PO) CAPS, one [...] to go back in 3 days to [place] for an attempt of ablation under general [...] PVCs. 2. Non-critical Coronary artery disease involving king salmon coronary artery of king salmon heart [facility] angina pectoris: A. Normal exercise sestamibi stress test on 05/25/09. LVEF by [facility] ed SPECT was 53%. B. Echocardiogram [...] cannot completely be ruled out . [facility] 12/25/13, shows non critical coronary artery [...] He is in a class I of [place] [employer] functiona l class. There is [...] presyncope 05/28/10 [facility], thought to have vasovagal symptoms. [...] reviewed and edited this note. Allyson Curtis, Tying Machine Operator 06/27/2018 I, Sydni Singletary MD, personally performed the services described in this documentation, as scribed in my presence and it is both accurate and complete. Allyson Curtis, Med Ass t 06/27/2018 14:15 Electronically signed by: Sydni Singletary MD [facility] 06/27/2018 Portions of this chart may have been created with [employer] voice recognition software. Occasi onal wrong-word or [...] | | | | | | [place] [address] | | | | | | [phone] | | | | | | | | +--------+ + + + + | 05/01/ | Procedure | Cardiology | | | | 2019 | visit | | | | +--------+ + + + + | 05/01/ | Office | Cardiology | Silvia, | | | 2019 | Visit | | PARISA [address] | | | | | | [place], | | | | | | [place] [address] | | | | | | [phone] | | | | | | | | +--------+ + + + + | 05/21/ | Implant | Cardiology | Sydni Singletary, | Remote Device | 2019 | Monitor | | [address] | Interrogation | | | | | [place], | (Primary Dx); | | | | | [place] [address] | Pacemaker; | | | | | [phone] | Sinoatrial node | | | | [...] by | | | | | | GEMIIN WINKLER, SYDNI | | | | | | ([id number]) on 06/27/2018 | | | | | [...]
--- OUTSIDE RECORDS SUMMARY | ~2020-04-15 | XMS | Encounter Summary ---
Demographics + + + | Address | [address] [place] [address] [address] | | | [place] [address] | + + + | Home Phone [...] [place] | | | | | [address] | | + + + + + Care Team Providers + +------+ + | Care Microfilmer Name | Role | Phone | + [...] | | Bradycardia | | | | [place], [place] | | | | | | [address] | | | | | | [phone] | | | +--------+------+ + + + [...] | [facility] | | [facility] [place] [address] | REGIONAL | | [place] [address] | LABORATORY | + + + + + + + + | Performing | Address | City/State/Zipcode | Phone Number | | Organization | | | | + + + + + | [facility] | [address] | [place] [address] | | | LABORATORY | | | [...] [facility] ([address] [facility]) | | | [facility] [address] | | | [place] [address] | | + + + + + + + + | Performing | Address | City/State/Zipcode | Phone Number | | Organization | | | | + + + + + | [facility] | [address] | [place] [address] | | | LABORATORY | | | [...] | | | DEPARTMENT | | | [place] | | | OF | | | [...] DEPARTMENT OF | [address] | [place] [address] | | | PATHOLOGY | [address] | | | + + + + + documented in this encounter Visit Diagnoses + + | Diagnosis | + + | Chest pain Chest pain, unspecified | + + | Bradycardia Other specified cardiac dysrhythmias | + + documented in this encounter"
--- OUTSIDE RECORDS SUMMARY | ~2020-04-15 | XMS | Encounter Summary ---
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, | (Primary Dx); | | | | | [place] [address] | Pacemaker; | | | | | [phone] | Sinoatrial node | | | | [...] | [facility] | | [address], [place] | | | - LABORATORY | | [...] | | | LAB | | | [place], | | | | | | External [...]
--- OUTSIDE RECORDS SUMMARY | ~2020-04-15 | XMS | Encounter Summary ---
Demographics + + + | Address | [address] | | | [place] [address] | + + + | Home Phone [...] Providers + +------+ + | Care Mud Mill Tender Name | Role | Phone | [...] + + | 01/03/ | Telephone | [facility] | Emmanuel Daniel MD | Results, Pathology | | 2018 | | GASTROENTEROLOGY | [address], [place] | (egd,colon) | | | | [address] | [address] [place], [place] | | | | | [address] [place], [place] | [address] | | | | | [address] | | | | | | [phone] | | | +--------+ + + + [...] | | | | | | [place] [address] | | | | | | [phone] | | | | | | | | +--------+ + + + + | 05/01/ | Procedure | Cardiology | | | | 2020 | visit | | | | +--------+ + + + + | 06/10/ | Office | Cardiology | [place]via, | | | 2019 | Visit | | [address] | | | | | | [place], | | | | | | [place] [address] | | | | | | [phone] | | | | | | | | +--------+ + + + + | 05/21/ | Implant | Cardiology | Daljit Singletary, | Remote Device | 2019 | Monitor | | [address] | Interrogation | | | | | [place], | (Primary Dx); | | | | | [place] [address] | Pacemaker; | | | | | [phone] | Sinoatrial node | | | | | | dysfunction (HCC) | | | | | | with symptomatic | | | | | | bradycardia | +--------+ + + + + documented as of this encounter Visit Diagnoses Not on filedocumented in this encounter"
--- OUTSIDE RECORDS SUMMARY | ~2020-04-15 | XMS | Encounter Summary ---
Demographics + + + | Address | [address] | | | [place] [address] | + + + | Home Phone [...] Team Providers + +------+ + | Care Radiator Fitter Name | Role | Phone | [...] | 06/17/ | Telephone | [facility] | [place], | Lab Order (due for | | 2015 | | CARDIOLOGY [address] | PAR[place] [address] | fasting labs prior | | | | [place], | [place], | to appt) | | | | [place] [address] | [place] [address] | | | | | [phone] | [phone] | | | | | | | [...] W | | | | | | [place], | | | | | | [place] [address] | | | | | | [phone] | | | | | | | | +--------+ + + + + | 05/01/ | Procedure | Cardiology | | | | 2019 | visit | | | | +--------+ + + + + | 05/01/ | Office | Cardiology | [place]via, | | | 2019 | Visit | | PARISA Vernon [address] | | | | | | [place], | | | | | | [place] [address] | | | | | | [phone] | | | | | | | | +--------+ + + + + | 05/21/ | Implant | Cardiology | Daljit Singletary, | Remote Device | 2019 | Monitor | | [address] | Interrogation | | | | | [place], | (Primary Dx); | | | | | [place] [address] | Pacemaker; | | | | | [phone] | Sinoatrial node | | | | [...]
--- OUTSIDE RECORDS SUMMARY | ~2020-04-15 | XMS | Encounter Summary ---
Demographics + + + | Address | [address] | | | [place] [address] | + + + | Home Phone [...] Providers + +------+ + | Care Water Control Supervisor Name | Role | Phone [...] [place] | | | | | | [address] | | | | | | [phone] | | | +--------+ + + + [...] | | | | | | [place] [address] | | | | | | [phone] | | | | | | | [...] | | | | | | [place] [address] | | | | | | [phone] | | | | | | | | +--------+ + + + + | 05/21/ | Implant | Cardiology | Daljit Singletary, | Remote Device | | 2019 | Monitor | | [address] [facility] | Interrogation | | | | | [place], | (Primary Dx); | | | | | [place] [address] | Pacemaker; | | | | | [phone] | Sinoatrial node | | | | | | dysfunction (HCC) | | | | | | with symptomatic | | | | | | bradycardia | +--------+ + + + + documented as of this encounter Visit Diagnoses Not on filedocumented in this encounter"
--- OUTSIDE RECORDS SUMMARY | ~2020-04-15 | XMS | Encounter Summary ---
Demographics + + + | Address | [address] | | | [place] [address] | + + + | Home Phone [...] Providers + +------+ + | Care Student Career Development Specialist Name | Role | Phone | + +------+ + | Kirk French MD | PCP | | + +------+ + Encounter Details +--------+ + + + + | Date | Type | Department | Care Team | Description | +--------+ + + + + | 07/21/ | Hospital | [facility] | Daljit Singletary, | Palpitations; | | 2018 | Encounter | MED CTR NUCLEAR | MD [address] | Presence of | | | | MEDICINE [address] | [address], | permanent cardiac | | | | [place] | [place] [address] | pacemaker; | | | | [address] | [phone] | Sinoatrial node | | | | [phone] | | dysfunction (HCC) | +--------+ + [...] + + + +---------+ + + | [place]-3 Fatty | CAPS, one capsule by | [...] | | | | | | [place] [address] | | | | | | [phone] | | | | | | | [...] | | | | | | [place] [address] | | | | | | [phone] | | | | | | | | +--------+ + + + + | 05/21/ | Implant | Cardiology | SunshinecherelleDaljit, | Remote Device | | 2020 | Monitor | | [address] [facility] | Interrogation | | | | | [place], | (Primary Dx); | | | | | [place] [address] | Pacemaker; | | | | | [phone] | Sinoatrial node | | | | [...]
--- OUTSIDE RECORDS SUMMARY | ~2020-04-15 | XMS | Encounter Summary ---
Demographics + + + | Address | [address] | | | [place] [address] | + + + | Home Phone [...] + +------+ + | Care Registered Nurse Practitioner Name | Role | Phone [...] + | 07/13/ | Telephone | [facility] | Kirk French | Referral Question | | 2019 | | [facility] | MD Bre[address] | | | | | [facility] [address] | | | | | [address] | [place] [address] | | | | | [place], [place] | [phone] | | | | | [address] | | | | | | [phone] | | | +--------+ + + + [...] | | | | | | [place] [address] | | | | | | [phone] | | | | | | | [...] | | | | | | [place] [address] | | | | | | [phone] | | | | | | | | +--------+ + + + + | 05/21/ | Implant | Cardiology | Daljit Singletary, | Remote Device | | 2019 | Monitor | | [address] [place] | Interrogation | | | | | [place], | (Primary Dx); | | | | | [place] [address] | Pacemaker; | | | | | [phone] | Sinoatrial node | | | | | | dysfunction (HCC) | | | | | | with symptomatic | | | | | | bradycardia | +--------+ + + + + documented as of this encounter Visit Diagnoses Not on filedocumented in this encounter"
--- OUTSIDE RECORDS SUMMARY | ~2020-04-15 | XMS | Encounter Summary ---
Demographics + + + | Address | [address] | | | [place] [address] | + + + | Home Phone [...] Team Providers + +------+ + | Care Assessment Manager Name | Role | Phone | [...] 2019 | | GASTROENTEROLOGY | MD [address] | | | | | [address] | [address] [place] | | | | | [address] [place] | [place] [address] | | | | | [address] | | | | | | [phone] | | | +--------+ + + + [...] | | | | | | [place] [address] | | | | | | [phone] | | | | | | | [...] | | | | | | [place] [address] | | | | | | [phone] | | | | | | | | +--------+ + + + + | 05/21/ | Implant | Cardiology | Daljit Singletary, | Remote Device | | 2019 | Monitor | | MD [address] [place] | Interrogation | | | | | [place], | (Primary Dx); | | | | | [place] [address] | Pacemaker; | | | | | [phone] | Sinoatrial node | | | | [...] | | | | | Emmanuel Daniel [facility] | | | | + + [...]
--- OUTSIDE RECORDS SUMMARY | ~2020-04-15 | XMS | Encounter Summary ---
Demographics + + + | Address | [address] | | | [place] [address] | + + + | Home Phone [...] Providers + +------+ + | Care Manager Domestic Name | Role | Phone | + [...] + + | 06/06/ | [facility] | [place], | Essential | | 2019 | Visit | CARDIOLOGY [address] | PARISA [place] [address] | hypertension | | | | [place], | [place], | (Primary Dx); | | | | [place] [address] | [place] [id number] | Sinoatrial node | | | | [phone] | [phone] | dysfunction (HCC) | | | | [...] encounter Patient Instructions Patient Instructions Julia Allen, Tax Services Manager - 06/06/2019 2:15 PM PDT1. Take [...] was seen in the emergency department at [facility] in [place] due to chest pain, no medication changes at that time. On 06/02/2019 he was seen here in the [facility] department with chest pain, irregular heart [...] 3RD DOSE, CALL 911 100 tablet 3 [place]-3 Fatty Acids (SALMON OIL-1000 PO) CAPS, one capsule by mouth daily twice daily ondansetron (ZOFRAN ODT) 4 mg disintegrating tablet Take 4 mg by mouth every 8 hours as needed for Nausea. ONE TOUCH DELICA LANCETS [facility] [...] I reviewed records from [facility] for emergency department visit o n 06/02/2019 which is summarized in the HPI. RESULTS- I reviewed reports from [facility]: Ct Abdomen Pelvis W Contrast Result [...] unremarkable. The liver, partially contracted gallbladder, sp carmezna, pancreas and adrenal glands are unremarkable. 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 Estimated remaining [facility] longevity is 3.5 years. [...] visit, or sooner with concerns. Julia Clemente, Tax Services Manager am acting as a scribe on behalf of, and in the presenc e of PARISA Lomas. - Reji Church 06/06/2019 15:10 Janeen Clemente ARNP, personally performed the services described in this documentati on, as scribed in my presence and it is both accurate and complete. -PARISA Lomas 06/06/2019 Portions of this chart may have been created with ITegris voice recognition software. Occasi onal wrong-word or [...] | | | | | | [place] [id number] | | | | | | [phone] | | | | | | | | +--------+ + + + + | 05/01/ | Procedure | Cardiology | | | 2019 | visit | | | | +--------+ + + + + | 05/01/ | Office | Cardiology | [place], | | | 2019 | Visit | | PARISA Vernon [address] | | | | | | [place], | | | | | | [place] [address] | | | | | | [phone] | | | | | | | | +--------+ + + + + | 05/21/ | Implant | Cardiology | Sydni Singletary, | Remote Device | | 2019 | Monitor | | [address] [facility] | Interrogation | | | | | [place], | (Primary Dx); | | | | | [place] [address] | Pacemaker; | | | | | [phone] | Sinoatrial node | | | | [...] MD | | | | | | ([id number]) on 06/06/2019 | | | | | [...]
--- OUTSIDE RECORDS SUMMARY | ~2020-04-15 | XMS | Encounter Summary ---
Demographics + + + | Address | [address] | | | [place] [address] | + + + | Home Phone [...] Team Providers + +------+ + | Care Modeling Analyst Name | Role | Phone | [...] [place] | | | | | | [address] | [address] Phone: | | | | | | Phone: | [phone] | | | | | | [phone] | Fax: | | | | | | Fax: | [phone] | | | | | | [phone] | | +--------+ + + + + [...] | diurnal enuresis | | | | [place], [place] | [place], [place] | (Primary Dx); BPH | | | | [address] | [address] | with | | | | [phone] | | obstruction/lower | | | | [...] Haleigh rodarte states that the surgeon in [place] who performed his neck surgery is no longer practicing a nd was apparently disciplined and had his license revoked by the [facility]. He has us ed marijuana for his [...] APNEA CONDS CLASSIFIED ELSEWHERE (12/15/2010); Ulcerative colitis ([facility]); Ches t pain; SINUS BRADYCARDIA; HEPATITIS B; PUD; FATTY LIVER DISEASE; SUBSTANCE ABUSE, MULTIPLE; Preventative health care (06/26/2013); Bladder troubles; Tuberculosis; Anginal pain ([facility]); St roke ([facility]); Prostate troubles; and Neurological disorder. Past Surgical [...] mouth 2 times daily (before meals). EMMA VEÁLSQUEZ 550 MG CAPS Take by mouth. LORazepam [...] needed for Chest pain. 25 tablet 12 [place]-3 Fatty Acids (SALMON OIL-1000 PO) CAPS, one [...] Date/Time: 04/22/2012 16:56 Transcribed Date/Time: 04/22/2012 17:32 Building Construction Supervisor: <Electronically Signed by Jama Solis MD> [...] Date/Time: 04/23/2012 10:54 Transcribed Date/Time: 04/23/2012 11:06 Building Construction Supervisor: <Electronically Signed by Jama Solis MD> 04/24/12 5075 IMPRESSION: 1. Nocturnal and diurnal enuresis. I [...] bladder, still believe that the recommendations from [facility] neurosurgeon, Dr. Demarco, on 03/13/2014 [...] have not thoroughly proofread this note, and rod bending machine operator erro rs may occur. CC: Kirk French [...] | | | | | | [place] [address] | | | | | | [phone] | | | | | | | | +--------+ + + + + | 05/01/ | Procedure | Cardiology | | | | 2019 | visit | | | | +--------+ + + + + | 05/01/ | Office | Cardiology | Silvia, | | | 2019 | Visit | | PARISA Vernon [address] | | | | | | [place], | | | | | | [place] [address] | | | | | | [phone] | | | | | | | | +--------+ + + + + | 05/21/ | Implant | Cardiology | Daljit Singletary, | Remote Device | | 2019 | Monitor | | [address] [place] | Interrogation | | | | | [place], | (Primary Dx); | | | | | [place] [address] | Pacemaker; | | | | | [phone] | Sinoatrial node | | | | [...] 1.001 - 1.030 | | | | [employer], | | | | | | [employer]A, [...]
--- OUTSIDE RECORDS SUMMARY | ~2020-04-15 | XMS | Encounter Summary ---
Demographics + + + | Address | [address] | | | [place] [address] | + + + | Home Phone [...] Providers + +------+ + | Care Rubber Stamp Assembler Name | Role | Phone | [...] Results | | 2013 | | [facility]IC[facility] [place] | DO [address] | | | | | [address] | [place] | | | | | [place] | [address] | | | | | [address] | | | | | | [phone] | | | +--------+ + + + [...] W | | | | | | [place], | | | | | | [place] [address] | | | | | | [phone] | | | | | | | | +--------+ + + + + | 05/01/ | Procedure | Cardiology | | | | 2019 | visit | | | | +--------+ + + + + | 05/01/ | Office | Cardiology | Silvia, | | | 2019 | Visit | | PARISA [address] | | | | | | [place], | | | | | | [place] [address] | | | | | | [phone] | | | | | | | | +--------+ + + + + | 05/21/ | Implant | Cardiology | Daljit Singletary, | Remote Device | 2019 | Monitor | | [address] | Interrogation | | | | | [place], | (Primary Dx); | | | | | [place] [address] | Pacemaker; | | | | | [phone] | Sinoatrial node | | | | | | dysfunction (HCC) | | | | | | with symptomatic | | | | | | bradycardia | +--------+ + + + + documented as of this encounter Visit Diagnoses Not on filedocumented in this encounter"
--- OUTSIDE RECORDS SUMMARY | ~2020-04-15 | XMS | Encounter Summary ---
Demographics + + + | Address | [address] | | | [place] [address] | + + + | Home Phone [...] Providers + +------+ + | Care Commissioning Engineer Name | Role | Phone | + +------+ + | Kirk French MD | PCP | | + +------+ + Encounter Details +--------+ + + + + | Date | Type | Department | Care Team | Description | +--------+ + + + + | 07/21/ | Hospital | [facility] | Daljit Singletary, | Palpitations; | | 2018 | Encounter | MED CTR NUCLEAR | MD [address] | Presence of | | | | MEDICINE [address] | [place], | permanent cardiac | | | | [place], | [place] [address] | pacemaker; | | | | [address] | [phone] | Sinoatrial node | | | | [phone] | | dysfunction (HCC) | +--------+ + [...] W | | | | | | [place], | | | | | | [place] [address] | | | | | | [phone] | | | | | | | | +--------+ + + + + | 05/01/ | Procedure | Cardiology | | | | 2019 | visit | | | | +--------+ + + + + | 05/01/ | Office | Cardiology | Silvia, | | | 2019 | Visit | | [address] | | | | | | [place], | | | | | | [place] [address] | | | | | | [phone] | | | | | | | | +--------+ + + + + | 05/21/ | Implant | Cardiology | SunshinecherelleDaljit, | Remote Device | | 2020 | Monitor | | [address] [facility] | Interrogation | | | | | [place], | (Primary Dx); | | | | | [place] [address] | Pacemaker; | | | | | [phone] | Sinoatrial node | | | | [...] 08/25/2018 13:12 Wireless even study from | [facility] | | 07/21 until 08/22/2018. [...]
--- OUTSIDE RECORDS SUMMARY | ~2020-04-15 | XMS | Encounter Summary ---
Demographics + + + | Address | [address] | | | [place] [address] | + + + | Home Phone [...] Providers + +------+ + | Care Air Traffic Control Operator Name | Role | Phone | + +------+ + | Kirk French MD | PCP | | + +------+ + Encounter Details +--------+ + + + + | Date | Type | Department | Care Team | Description | +--------+ + + + + | 01/05/ | Anesthesia | [facility] | Jarett Barakat | | | 2019 | Event | MED CTR MP INTRA OP | P, MD [address] | | | | | [address] | [place], [place] | | | | | [place], [place] | [address] | | | | | [address] | [phone] | | | | | [phone] | | | +--------+ + + + [...] transported to [facility], | | | 4 | | Monitors [...] | 01/05/19950 by | | eral | kddl-mnp-wztkea catheter system; | Kasie Natarajan RN | [...] | | | | | | [place] [address] | | | | | | [phone] | | | | | | | | +--------+ + + + + | 05/01/ | Procedure | Cardiology | | | | 2019 | visit | | | | +--------+ + + + + | 05/01/ | Office | Cardiology | Silvia, | | | 2019 | Visit | | [address] | | | | | | [place], | | | | | | [place] [address] | | | | | | [phone] | | | | | | | | +--------+ + + + + | 05/21/ | Implant | Cardiology | Daljit Singletary, | Remote Device | 2019 | Monitor | | [place] [address] | Interrogation | | | | | [place], | (Primary Dx); | | | | | [place] [address] | Pacemaker; | | | | | [phone] | Sinoatrial node | | | | [...]
--- OUTSIDE RECORDS SUMMARY | ~2020-04-15 | XMS | Encounter Summary ---
Demographics + + + | Address | [address] | | | [place] [address] | + + + | Home Phone [...] Providers + +------+ + | Care Cook Morning Name | Role | Phone | + [...] 2017 | | GASTROENTEROLOGY | [address], [place] | colon Rescheduled to | | | | [address] [place] | [address] [place] | December 24 due to | | | | [address] [place] | [address] | illness) | | | | [address] | | | | | | [phone] | | | +--------+ + + + [...] | | | | | | [place] [address] | | | | | | [phone] | | | | | | | | +--------+ + + + + | 05/01/ | Procedure | Cardiology | | | | 2019 | visit | | | | +--------+ + + + + | 05/01/ | Office | Cardiology | Silvia, | | | 2019 | Visit | | PARISA Vernon [address] | | | | | | [place], | | | | | | [place] [address] | | | | | | [phone] | | | | | | | | +--------+ + + + + | 05/21/ | Implant | Cardiology | Daljit Singletary, | Remote Device | | 2019 | Monitor | | [address] | Interrogation | | | | | [place], | (Primary Dx); | | | | | [place] [address] | Pacemaker; | | | | | [phone] | Sinoatrial node | | | | | | dysfunction (HCC) | | | | | | with symptomatic | | | | | | bradycardia | +--------+ + + + + documented as of this encounter Visit Diagnoses Not on filedocumented in this encounter"
--- OUTSIDE RECORDS SUMMARY | ~2020-04-15 | XMS | Encounter Summary ---
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), | | | | [place] | [address] | lumbar; Chronic | | | | [place] [address] | [place] [address] | left-sided low back | | | | [phone] | [phone] | pain with left-sided | | | [...] + + + +---------+ + + | [place]-3 Fatty | CAPS, one capsule by | [...] | | | | | | [place] [address] | | | | | | [phone] | | | | | | | | +--------+ + + + + | 05/01/ | Procedure | Cardiology | | | | 2019 | visit | | | | +--------+ + + + + | 05/01/ | Office | Cardiology | Silvia, | | | 2019 | Visit | | [address] | | | | | | [place], | | | | | | [place] [address] | | | | | | [phone] | | | | | | | | +--------+ + + + + | 05/21/ | Implant | Cardiology | SunshinecherelleDaljit, | Remote Device | | 2019 | Monitor | | [address] [facility] | Interrogation | | | | | [place], | (Primary Dx); | | | | | [place] [address] | Pacemaker; | | | | | [phone] | Sinoatrial node | | | | [...]
--- OUTSIDE RECORDS SUMMARY | ~2020-04-15 | XMS | Encounter Summary ---
Demographics + + + | Address | [address] | | | [place] [address] | + + + | Home Phone [...] Team Providers + +------+ + | Care Representative Phlebotomy Services Name | Role | Phone | + +------+ + PCP | Unavailable | + +------+ + Encounter Details +--------+ + + + + | Date | Type | Department | Care Team | Description | +--------+ + + + + | 10/13/ | Hospital | [facility] | | | | 2007 | Encounter | MED CTR EMERGENCY | | | | | | [place] [address] | | | | | | [place] | | | | | | [address] | | | | | | [phone] | | | +--------+ + + + [...] | | | | | | [place] [address] | | | | | | [phone] | | | | | | | | +--------+ + + + + | 05/01/ | Procedure | Cardiology | | | | 2019 | visit | | | | +--------+ + + + + | 05/01/ | Office | Cardiology | Silvia, | | | 2019 | Visit | | [address] | | | | | | [place], | | | | | | [place] [address] | | | | | | [phone] | | | | | | | | +--------+ + + + + | 05/21/ | Implant | Cardiology | Daljit Singletary, | Remote Device | 2019 | Monitor | | [address] [place] | Interrogation | | | | | [place], | (Primary Dx); | | | | | [place] [address] | Pacemaker; | | | | | [phone] | Sinoatrial node | | | | | | dysfunction (HCC) | | | | | | with symptomatic | | | | | | bradycardia | +--------+ + + + + documented as of this encounter Visit Diagnoses Not on filedocumented in this encounter"
--- OUTSIDE RECORDS SUMMARY | ~2020-04-15 | XMS | Encounter Summary ---
Demographics + + + | Address | [address] | | | [place] [address] | + + + | Home Phone [...] Team Providers + +------+ + | Care Grid Molder Name | Role | Phone | [...] Medication Refill | | 2019 | | [facility] | MD Brea [address] | | | | | [facility] [address] | [address] | | | | | [address] | [place] [address] | | | | | [place], [place] | [phone] | | | | | [address] | | | | | | [phone] | | | +--------+--------+ + + + [...] | | | | | | [place] [address] | | | | | | [phone] | | | | | | | | +--------+ + + + + | 05/01/ | Procedure | Cardiology | | | | 2019 | visit | | | | +--------+ + + + + | 05/01/ | Office | Cardiology | Silvia, | | | 2019 | Visit | | PARISA [place] [address] | | | | | | [place], | | | | | | [place] [address] | | | | | | [phone] | | | | | | | | +--------+ + + + + | 05/21/ | Implant | Cardiology | Daljit Singletary, | Remote Device | | 2019 | Monitor | | [address] [facility] | Interrogation | | | | | [place], | (Primary Dx); | | | | | [place] [address] | Pacemaker; | | | | | [phone] | Sinoatrial node | | | | | | dysfunction (HCC) | | | | | | with symptomatic | | | | | | bradycardia | +--------+ + + + + documented as of this encounter Visit Diagnoses Not on filedocumented in this encounter"
--- OUTSIDE RECORDS SUMMARY | ~2020-04-15 | XMS | Encounter Summary ---
Demographics + + + | Address | [address] | | | [place] [address] | + + + | Home Phone [...] + + | 02/01/ | Telephone | [facility] | [place], | Other (unable to | | 2013 | | CARDIOLOGY [address] | [place] [address] | take the isosorbide) | | | | [place], | [place], | | | | | [place] [address] | [place] [address] | | | | | [phone] | [phone] | | | | | | | [...] W | | | | | | [place], | | | | | | [place] [address] | | | | | | [phone] | | | | | | | | +--------+ + + + + | 05/01/ | Procedure | Cardiology | | | | 2019 | visit | | | | +--------+ + + + + | 05/01/ | Office | Cardiology | Silvia, | | | 2019 | Visit | | [address] | | | | | | [place], | | | | | | [place] [address] | | | | | | [phone] | | | | | | | | +--------+ + + + + | 05/21/ | Implant | Cardiology | Daljit Singletary, | Remote Device | | 2020 | Monitor | | [place] [address] [facility] | Interrogation | | | | | [place], | (Primary Dx); | | | | | [place] [address] | Pacemaker; | | | | | [phone] | Sinoatrial node | | | | | | dysfunction (HCC) | | | | | | with symptomatic | | | | | | bradycardia | +--------+ + + + + documented as of this encounter Visit Diagnoses + + | Diagnosis | + + | Coronary artery disease - Primary Coronary atherosclerosis of unspecified type of | | vessel, [place] or graft | + + | Hypertension Unspecified essential hypertension | + + | Hyperlipidemia Other and unspecified hyperlipidemia | + + documented in this encounter"
--- OUTSIDE RECORDS SUMMARY | ~2020-04-15 | XMS | Encounter Summary ---
Demographics + + + | Address | [address] | | | [place] [address] | + + + | Home Phone [...] Providers + +------+ + | Care Dye Machine Operator Name | Role | Phone [...] | CARDIOLOGY [address] | [address] [place] | Interrogation | | | | [place], | [place], | (Primary Dx); | | | | [place] [address] | [place] [address] | Presence of | | | | [phone] | [phone] | permanent cardiac | | | | [...] | | | | | | [place] [address] | | | | | | [phone] | | | | | | | | +--------+ + + + + | 05/01/ | Procedure | Cardiology | | | | 2019 | visit | | | | +--------+ + + + + | 05/01/ | Office | Cardiology | Silvia, | | | 2019 | Visit | | PARISA [place] [address] | | | | | | [place], | | | | | | [place] [address] | | | | | | [phone] | | | | | | | | +--------+ + + + + | 05/21/ | Implant | Cardiology | Daljit Singletary, | Remote Device | 2019 | Monitor | | [address] [facility] [place] | Interrogation | | | | | [place], | (Primary Dx); | | | | | [place] [address] | Pacemaker; | | | | | [phone] | Sinoatrial node | | | | [...]
--- OUTSIDE RECORDS SUMMARY | ~2020-04-15 | XMS | Encounter Summary ---
Demographics + + + | Address | [address] | | | [place] [address] | + + + | Home Phone [...] Team Providers + +------+ + | Care Pmo Consultant Name | Role | Phone | [...] [address] | | | | | [place] | [address] [place] | | | | | [address] | [address] | | | | | [phone] | | | +--------+ + + + [...] | | | | | | [place], | | | | | | [place] [address] | | | | | | [phone] | | | | | | | [...] | | | | | | [place] [address] | | | | | | [phone] | | | | | | | | +--------+ + + + + | 05/21/ | Implant | Cardiology | Daljit Singletary, | Remote Device | 2019 | Monitor | | [address] | Interrogation | | | | | [place], | (Primary Dx); | | | | | [place] [address] | Pacemaker; | | | | | [phone] | Sinoatrial node | | | | | | dysfunction (HCC) | | | | | | with symptomatic | | | | | | bradycardia | +--------+ + + + + documented as of this encounter Visit Diagnoses Not on filedocumented in this encounter"
--- OUTSIDE RECORDS SUMMARY | ~2020-04-15 | XMS | Encounter Summary ---
Demographics + + + | Address | [address] | | | [place] [address] | + + + | Home Phone [...] Providers + +------+ + | Care Air Route Controller Name | Role | Phone | [...] CARDIOLOGY [address] | MD [address] [place] | Interrogation | | | | [place], | [place], | (Primary Dx); | | | | [place] [address] | [place] [address] | Pacemaker; | | | | [phone] | [phone] | Sinoatrial node | | | | [...] | | | | | | [place] [address] | | | | | | [phone] | | | | | | | | +--------+ + + + + | 05/01/ | Procedure | Cardiology | | | | 2019 | visit | | | | +--------+ + + + + | 05/01/ | Office | Cardiology | Silvia, | | | 2019 | Visit | | [address] | | | | | | [place], | | | | | | [place] [address] | | | | | | [phone] | | | | | | | | +--------+ + + + + | 05/21/ | Implant | Cardiology | Daljit Singletary, | Remote Device | 2019 | Monitor | | MD [facility] | Interrogation | | | | | [place], | (Primary Dx); | | | | | [place] [address] | Pacemaker; | | | | | [phone] | Sinoatrial node | | | | [...] remote PDF scanned into | | | [facility] for remote interrogation results. Data [...]
--- OUTSIDE RECORDS SUMMARY | ~2020-04-15 | XMS | Encounter Summary ---
Demographics + + + | Address | [address] | | | [place] [address] | + + + | Home Phone [...] Providers + +------+ + | Care Full Fashioned Garment Knitter Name | Role | Phone | [...] | 07/30/ | Telephone | [facility] [place] [facility] | Michael Amanda, | Results | | 2013 | | MEDICINE [place] | DO [address] | | | | | [address] | [place] | | | | | [place] | [address] | | | | | [address] | | | | | | [phone] | | | +--------+ + + + [...] [address] | | | | | | [place], | | | | | | [place] [address] | | | | | | [phone] | | | | | | | | +--------+ + + + + | 05/01/ | Procedure | Cardiology | | | | 2019 | visit | | | | +--------+ + + + + | 05/01/ | Office | Cardiology | Silvia, | | | 2019 | Visit | | [address] | | | | | | [place], | | | | | | [place] [address] | | | | | | [phone] | | | | | | | | +--------+ + + + + | 05/21/ | Implant | Cardiology | Daljit Singletary, | Remote Device | 2019 | Monitor | | MD Chiquis Oro | Interrogation | | | | | [place], | (Primary Dx); | | | | | [place] [address] | Pacemaker; | | | | | [phone] | Sinoatrial node | | | | | | dysfunction (HCC) | | | | | | with symptomatic | | | | | | bradycardia | +--------+ + + + + documented as of this encounter Visit Diagnoses Not on filedocumented in this encounter"
--- OUTSIDE RECORDS SUMMARY | ~2020-04-15 | XMS | Encounter Summary ---
Demographics + + + | Address | [address] | | | [place] [address] | + + + | Home Phone [...] Providers + +------+ + | Care Pilot Fuel Engineer Name | Role | Phone | [...] Eva ROUSE | | | | | [place], [place] | [address] | | | | | [address] | [place] [address] | | | | | [phone] | [phone] | | | | | | | [...] W | | | | | | [place], | | | | | | [place] [address] | | | | | | [phone] | | | | | | | | +--------+ + + + + | 05/01/ | Procedure | Cardiology | | | | 2019 | visit | | | | +--------+ + + + + | 05/01/ | Office | Cardiology | Silvia, | | | 2019 | Visit | | [address] W | | | | | | [place], | | | | | | [place] [address] | | | | | | [phone] | | | | | | | | +--------+ + + + + | 05/21/ | Implant | Cardiology | Daljit Singletary, | Remote Device | 2019 | Monitor | | MD [address] [place] | Interrogation | | | | | [place], | (Primary Dx); | | | | | [place] [address] | Pacemaker; | | | | | [phone] | Sinoatrial node | | | | [...] | | | Basophils | performed at [facility];[address] | 10*3/uL | LAB | | | | [address] | | | | | | [address];[place] [address] | | | | + + + [...] | | | | | Samira;[place] [address] | | | | + + + [...] | | | | | | at [facility];[address] [facility] | | | | | | [facility];[place], [place] | | | | | | [address] | | | | + + + [...]
--- OUTSIDE RECORDS SUMMARY | ~2020-04-15 | XMS | Encounter Summary ---
Demographics + + + | Address | [address] | | | [place] [address] | + + + | Home Phone [...] Providers + +------+ + | Care Crystal Slicer Name | Role | Phone | + +------+ + PCP | Unavailable | + +------+ + Encounter Details +--------+ + + + + | Date | Type | Department | Care Team | Description | +--------+ + + + + | 06/13/ | [facility] | [facility] | Daljit Singletary, | | | 2008 | Encounter | MED CTR LABORATORY | [address] | | | | | [address] [place] | [address] [place], | | | | | [place] | [place] [address] | | | | | [address] | [phone] | | | | | [phone] | | | +--------+ + + + [...] W | | | | | | [place], | | | | | | [place] [address] | | | | | | [phone] | | | | | | | | +--------+ + + + + | 05/01/ | Procedure | Cardiology | | | | 2019 | visit | | | | +--------+ + + + + | 05/01/ | Office | Cardiology | Silvia | | | 2019 | Visit | | PAR[address] | | | | | | [place], | | | | | | [place] [address] | | | | | | [phone] | | | | | | | | +--------+ + + + + | 05/21/ | Implant | Cardiology | Daljit Singletary, | Remote Device | 2019 | Monitor | | MD [address] [place] | Interrogation | | | | | [place], | (Primary Dx); | | | | | [place] [address] | Pacemaker; | | | | | [phone] | Sinoatrial node | | | | | | dysfunction (HCC) | | | | | | with symptomatic | | | | | | bradycardia | +--------+ + + + + documented as of this encounter Visit Diagnoses Not on filedocumented in this encounter"
--- OUTSIDE RECORDS SUMMARY | ~2020-04-15 | XMS | Encounter Summary ---
Demographics + + + | Address | [address] | | | [place] [address] | + + + | Home Phone [...] Providers + +------+ + | Care Systems Design Engineer Name | Role | [...] 2012 | | CARDIOLOGY [address] | AUTO EMISSIONS TECHNICIAN [address] | to be referred | | | | [place], | [place], [place] | soon) | | | | [place] [address] | [address] | | | | | [phone] | | | +--------+ + + + [...] | | | | | | [place] [address] | | | | | | [phone] | | | | | | | | +--------+ + + + + | 05/01/ | Procedure | Cardiology | | | | 2019 | visit | | | | +--------+ + + + + | 05/01/ | Office | Cardiology | Silvia, | | | 2019 | Visit | | [address] | | | | | | [place], | | | | | | [place] [address] | | | | | | [phone] | | | | | | | | +--------+ + + + + | 05/21/ | Implant | Cardiology | Daljit Singletary, | Remote Device | | 2020 | Monitor | | [facility] | Interrogation | | | | | [address], | (Primary Dx); | | | | | [place] [address] | Pacemaker; | | | | | [phone] | Sinoatrial node | | | | | | dysfunction (HCC) | | | | | | with symptomatic | | | | | | bradycardia | +--------+ + + + + documented as of this encounter Visit Diagnoses Not on filedocumented in this encounter"
--- OUTSIDE RECORDS SUMMARY | ~2020-04-15 | XMS | Encounter Summary ---
Demographics + + + | Address | [address] [place] [address] [address] | | | [place] [address] | + + + | Home Phone [...] [place] | | | | | [address] | | + + + + + Care Team Providers + +------+ + | Care Rn Progressive Care Unit Name | Role | Phone | [...] | | [address] | [facility] [place] | ED) | | | | Mailcode: Center | [address] | | | | | for Health and | [phone] | | | | | [facility] 2 | | | | | | [place], [place] | | | | | | [address] | | | | | | [phone] | | | +--------+ + + + [...]
--- OUTSIDE RECORDS SUMMARY | ~2020-04-15 | XMS | Encounter Summary ---
Demographics + + + | Address | [address] | | | [place] [address] | + + + | Home Phone [...] Providers + +------+ + | Care Consulting Analyst Name | Role | Phone | [...] | 03/07/ | Telephone | [facility] [place] | Daljit Singletary, | Results ([employer]) | | 2020 | | CARDIOLOGY [address] | MD [address] [place] | | | | | [place], | [place], | | | | | [place] [address] | [place] [address] | | | | | [phone] | [phone] | | | | | | | [...] | | | | | | [place] [address] | | | | | | [phone] | | | | | | | | +--------+ + + + + | 05/01/ | Procedure | Cardiology | | | | 2019 | visit | | | | +--------+ + + + + | 05/01/ | Office | Cardiology | Silvia, | | | 2019 | Visit | | PARISA Vernon [address] | | | | | | [place], | | | | | | [place] [address] | | | | | | [phone] | | | | | | | | +--------+ + + + + | 05/21/ | Implant | Cardiology | Daljit Singletary, | Remote Device | 2019 | Monitor | | [address] [place] | Interrogation | | | | | [place], | (Primary Dx); | | | | | [place] [address] | Pacemaker; | | | | | [phone] | Sinoatrial node | | | | | | dysfunction (HCC) | | | | | | with symptomatic | | | | | | bradycardia | +--------+ + + + + documented as of this encounter Visit Diagnoses Not on filedocumented in this encounter"
--- OUTSIDE RECORDS SUMMARY | ~2020-04-15 | XMS | Encounter Summary ---
Demographics + + + | Address | [address] | | | [place] [address] | + + + | Home Phone [...] Providers + +------+ + | Care Tube Mounter Name | Role | Phone | [...] | | [address] [place] | [place] [address] | | | | | [place] [address] | | | | | | [phone] | | | +--------+ + + + [...] | | | | | | [place], | | | | | | [place] [address] | | | | | | [phone] | | | | | | | | +--------+ + + + + | 05/01/ | Procedure | Cardiology | | | | 2019 | visit | | | | +--------+ + + + + | 05/01/ | Office | Cardiology | Silvia, | | | 2019 | Visit | | PARISA [address] W | | | | | | [place], | | | | | | [place] [address] | | | | | | [phone] | | | | | | | | +--------+ + + + + | 05/21/ | Implant | Cardiology | Daljit Singletary, | Remote Device | | 2019 | Monitor | | MD [address] [facility] | Interrogation | | | | | [place], | (Primary Dx); | | | | | [place] [address] | Pacemaker; | | | | | [phone] | Sinoatrial node | | | | [...]
--- OUTSIDE RECORDS SUMMARY | ~2020-04-15 | XMS | Encounter Summary ---
Demographics + + + | Address | [address] | | | [place] [address] | + + + | Home Phone [...] Providers + +------+ + | Care Hospitality Housekeeper Name | Role | Phone | [...] | [address] [place] | [place] [address] | | | | | [place] [address] | | | | | | [phone] | | | +--------+ + + + [...] W | | | | | | [place], | | | | | | [place] [address] | | | | | | [phone] | | | | | | | | +--------+ + + + + | 05/01/ | Procedure | Cardiology | | | | 2019 | visit | | | | +--------+ + + + + | 05/01/ | Office | Cardiology | Silvia, | | | 2019 | Visit | | [address] | | | | | | [place], | | | | | | [place] [address] | | | | | | [phone] | | | | | | | | +--------+ + + + + | 05/21/ | Implant | Cardiology | Daljit Singletary, | Remote Device | 2019 | Monitor | | [address] [place] | Interrogation | | | | | [place], | (Primary Dx); | | | | | [place] [address] | Pacemaker; | | | | | [phone] | Sinoatrial node | | | | [...] for comparison only - no result from [facility]. | | + + + + +---------+ + + | Performing | Address | City/State/Zipcode | Phone Number | | Organization | | | | + +---------+ + + | [facility] | | | | + +---------+ + + documented in this encounter Visit Diagnoses Not on filedocumented in this encounter"
--- OUTSIDE RECORDS SUMMARY | ~2020-04-15 | XMS | Encounter Summary ---
Demographics + + + | Address | [address] | | | [place] [address] | + + + | Home Phone [...] Providers + +------+ + | Care Delphi Programmer Name | Role | Phone | [...] | Refill | [facility] [place] | [place], | Medication Refill | | 2014 | | CARDIOLOGY [address] | [address] | | | | | [place], | [place], | | | | | [place] [address] | [place] [address] | | | | | [phone] | [phone] | | | | | | | [...] | | | | | | [place], | | | | | | [place] [address] | | | | | | [phone] | | | | | | | | +--------+ + + + + | 05/01/ | Procedure | Cardiology | | | | 2019 | visit | | | | +--------+ + + + + | 05/01/ | Office | Cardiology | Silvia, | | | 2019 | Visit | | [address] | | | | | | [place], | | | | | | [place] [address] | | | | | | [phone] | | | | | | | | +--------+ + + + + | 05/21/ | Implant | Cardiology | Daljit Singletary, | Remote Device | | 2019 | Monitor | | [address] [facility] | Interrogation | | | | | [place], | (Primary Dx); | | | | | [place] [address] | Pacemaker; | | | | | [phone] | Sinoatrial node | | | | | | dysfunction (HCC) | | | | | | with symptomatic | | | | | | bradycardia | +--------+ + + + + documented as of this encounter Visit Diagnoses Not on filedocumented in this encounter"
--- OUTSIDE RECORDS SUMMARY | ~2020-04-15 | XMS | Encounter Summary ---
Demographics + + + | Address | [address] | | | [place] [address] | + + + | Home Phone [...] Providers + +------+ + | Care Sorting Grapple Operator Name | Role | Phone | + +------+ + PCP | Unavailable | + +------+ + Encounter Details +--------+ + + + + | Date | Type | Department | Care Team | Description | +--------+ + + + + | 01/17/ | [facility] | [facility] | Jonas Ramos, | | | 2009 | Encounter | MED CTR EMERGENCY | MD [address] | | | | | CENTER [address] [place] | [facility] [place] | | | | | [place] | [place] [address] | | | | | [address] | [phone] | | | | | [phone] | | | +--------+ + + + [...] W | | | | | | [place], | | | | | | [place] [address] | | | | | | [phone] | | | | | | | | +--------+ + + + + | 05/01/ | Procedure | Cardiology | | | | 2019 | visit | | | | +--------+ + + + + | 05/01/ | Office | Cardiology | Silvia, | | | 2019 | Visit | | [address] | | | | | | [place], | | | | | | [place] [address] | | | | | | [phone] | | | | | | | | +--------+ + + + + | 05/21/ | Implant | Cardiology | Daljit Singletary, | Remote Device | | 2019 | Monitor | | MD [address] [place] | Interrogation | | | | | [place], | (Primary Dx); | | | | | [place] [address] | Pacemaker; | | | | | [phone] | Sinoatrial node | | | | | | dysfunction (HCC) | | | | | | with symptomatic | | | | | | bradycardia | +--------+ + + + + documented as of this encounter Visit Diagnoses Not on filedocumented in this encounter"
--- OUTSIDE RECORDS SUMMARY | ~2020-04-15 | XMS | Encounter Summary ---
Demographics + + + | Address | [address] | | | [place] [address] | + + + | Home Phone [...] Providers + +------+ + | Care Rod Puller Name | Role | Phone | [...] + | 01/03/ | Office | [facility] | [place], | CAD (coronary artery | | 2012 | Visit | CARDIOLOGY [address] | Janeen, COIL SHAPER [address] | disease) (Primary | | | | [place] [facility], | [place], | Dx); Bradycardia; | | | | [place] [address] | [place] [address] | HTN (hypertension); | | | | [phone] | [phone] | Lightheadedness | | | | | [...] tablet Take 1,000 mg by mouth Daily. [place]-3 Fatty Acids (SALMON OIL-1000 PO) CAPS, one [...] himself t o the emergency department at [facility] in [place], [place]. EKG showed normal s inus rhythm [...] Refer patient to an electrophysiology specialist in [place] for further evaluation for P VC's ablation. I have given verbal instructions and written material for patient to read mo re about the procedure. 2. Check blood pressure and pulse twice daily for two weeks and return the log to our offic e. 3. Followup appointment after patient's appointment with gis specialist/ablation. IJaneen ARNP, saw this patient under the direct supervision of Daljit Singletary MD Portions of this report were transcribed using voice recognition software. Every effort wa s made to ensure accuracy; however, inadvertent computerized credit or loans officer errors may be pre sent. documented in [...] | | | | | | [place] [address] | | | | | | [phone] | | | | | | | [...] | | | | | | [place] [address] | | | | | | [phone] | | | | | | | | +--------+ + + + + | 05/21/ | Implant | Cardiology | Daljit Singletary, | Remote Device | 2019 | Monitor | | [address] [place] | Interrogation | | | | | [facility] [place], | (Primary Dx); | | | | | [place] [address] | Pacemaker; | | | | | [phone] | Sinoatrial node | | | | | | dysfunction (HCC) | | | | | | with symptomatic | | | | | | bradycardia | +--------+ + + + + documented as of this encounter Visit Diagnoses + + | Diagnosis | + + | CAD (coronary artery disease) - Primary Coronary atherosclerosis of unspecified type | | of vessel, [place] or graft | + + | Bradycardia Other specified cardiac dysrhythmias | + + | HTN (hypertension) Unspecified essential hypertension | + + | Lightheadedness Dizziness and giddiness | + + documented in this encounter
--- OUTSIDE RECORDS SUMMARY | ~2020-04-15 | XMS | Encounter Summary ---
Demographics + + + | Address | [address] | | | [place] [address] | + + + | Home Phone [...] Providers + +------+ + | Care Certified Court Interpreter Name | Role | Phone | + +------+ + PCP | Unavailable | + +------+ + Encounter Details +--------+ + + + + | Date | Type | Department | Care Team | Description | +--------+ + + + + | 11/05/ | [facility] | [facility] | Naresh Mckeon | | | 2009 | Encounter | MED CTR SLEEP | MD Chaya [address] | | | | | CENTER [address] [place] | [place] | | | | | [place] | [place] [address] | | | | | [address] | [phone] | | | | | [phone] | | | +--------+ + + + [...] W | | | | | | [place], | | | | | | [place] [address] | | | | | | [phone] | | | | | | | | +--------+ + + + + | 05/01/ | Procedure | Cardiology | | | | 2019 | visit | | | | +--------+ + + + + | 05/01/ | Office | Cardiology | Silvia | | | 2019 | Visit | | [address] | | | | | | [place], | | | | | | [place] [address] | | | | | | [phone] | | | | | | | | +--------+ + + + + | 05/21/ | Implant | Cardiology | Daljit Singletary, | Remote Device | 2019 | Monitor | | MD [address] [place] | Interrogation | | | | | [place], | (Primary Dx); | | | | | [place] [address] | Pacemaker; | | | | | [phone] | Sinoatrial node | | | | | | dysfunction (HCC) | | | | | | with symptomatic | | | | | | bradycardia | +--------+ + + + + documented as of this encounter Visit Diagnoses Not on filedocumented in this encounter"
--- OUTSIDE RECORDS SUMMARY | ~2020-04-15 | XMS | Encounter Summary ---
Demographics + + + | Address | [address] | | | [place] [address] | + + + | Home Phone [...] Providers + +------+ + | Care Corporate Counselor Name | Role | Phone | [...] | | | | | | [place] [address] | | | | | | [phone] | | | +--------+ + + + [...] | | | | | | [place] [address] | | | | | | [phone] | | | | | | | [...] | | | | | | [place] [address] | | | | | | [phone] | | | | | | | | +--------+ + + + + | 05/21/ | Implant | Cardiology | Daljit Singletary, | Remote Device | 2019 | Monitor | | [address] [place] | Interrogation | | | | | [place], | (Primary Dx); | | | | | [place] [address] | Pacemaker; | | | | | [phone] | Sinoatrial node | | | | | | dysfunction (HCC) | | | | | | with symptomatic | | | | | | bradycardia | +--------+ + + + + documented as of this encounter Visit Diagnoses Not on filedocumented in this encounter"
--- OUTSIDE RECORDS SUMMARY | ~2020-04-15 | XMS | Encounter Summary ---
Demographics + + + | Address | [address] | | | [place] [address] | + + + | Home Phone [...] Team Providers + +------+ + | Care Appraisal Manager Name | Role | Phone | [...] | 02/27/ | Telephone | [facility] | [place], | Chest Pain (Patient | | 2013 | | CARDIOLOGY [address] | Janeen, INSPECTOR TOOL [address] | having chest pain) | | | | [place], | [place], | | | | | [place] [address] | [place] [address] | | | | | [phone] | [phone] | | | | | | | [...] W | | | | | | [place], | | | | | | [place] [address] | | | | | | [phone] | | | | | | | | +--------+ + + + + | 05/01/ | Procedure | Cardiology | | | | 2019 | visit | | | | +--------+ + + + + | 05/01/ | Office | Cardiology | Silvia, | | | 2019 | Visit | | [address] W | | | | | | [place], | | | | | | [place] [address] | | | | | | [phone] | | | | | | | | +--------+ + + + + | 05/21/ | Implant | Cardiology | Daljit Singletary, | Remote Device | | 2019 | Monitor | | [address] [facility] | Interrogation | | | | | [place], | (Primary Dx); | | | | | [place] [address] | Pacemaker; | | | | | [phone] | Sinoatrial node | | | | | | dysfunction (HCC) | | | | | | with symptomatic | | | | | | bradycardia | +--------+ + + + + documented as of this encounter Visit Diagnoses Not on filedocumented in this encounter"
--- OUTSIDE RECORDS SUMMARY | ~2020-04-15 | XMS | Encounter Summary ---
Demographics + + + | Address | [address] | | | [place] [address] | + + + | Home Phone [...] Providers + +------+ + | Care Chair Post Machine Operator Name | Role | Phone [...] | | CARDIOLOGY [address] | Janeen, OFFICE AUDITOR [address] | Clearance) | | | | [place], | [place], | | | | | [place] [address] | [place] [address] | | | | | [phone] | [phone] | | | | | | | [...] | | | | | | [place] [address] | | | | | | [phone] | | | | | | | | +--------+ + + + + | 05/01/ | Procedure | Cardiology | | | | 2019 | visit | | | | +--------+ + + + + | 05/01/ | Office | Cardiology | Silvia, | | | 2019 | Visit | | PARISA Vernon [address] | | | | | | [place], | | | | | | [place] [address] | | | | | | [phone] | | | | | | | | +--------+ + + + + | 05/21/ | Implant | Cardiology | Daljit Singletary, | Remote Device | 2019 | Monitor | | [facility] | Interrogation | | | | | [place], | (Primary Dx); | | | | | [place] [address] | Pacemaker; | | | | | [phone] | Sinoatrial node | | | | | | dysfunction (HCC) | | | | | | with symptomatic | | | | | | bradycardia | +--------+ + + + + documented as of this encounter Visit Diagnoses Not on filedocumented in this encounter"
--- OUTSIDE RECORDS SUMMARY | ~2020-04-15 | XMS | Encounter Summary ---
Demographics + + + | Address | [address] | | | [place] [address] | + + + | Home Phone [...] + +------+ + | Care Director Of Coding Name | Role | Phone | + [...] | CARDIOLOGY [address] | MD [address] [place] | | | | | [place], | [place], | | | | | [place] [address] | [place] [address] | | | | | [phone] | [phone] | | | | | | | [...] W | | | | | | [place], | | | | | | [place] [address] | | | | | | [phone] | | | | | | | | +--------+ + + + + | 05/01/ | Procedure | Cardiology | | | | 2019 | visit | | | | +--------+ + + + + | 05/01/ | Office | Cardiology | Silvia, | | | 2019 | Visit | | PARISA Vernon [address] | | | | | | [place], | | | | | | [place] [address] | | | | | | [phone] | | | | | | | | +--------+ + + + + | 05/21/ | Implant | Cardiology | Daljit Singletary, | Remote Device | | 2019 | Monitor | | [facility] | Interrogation | | | | | [place] [place], | (Primary Dx); | | | | | [place] [address] | Pacemaker; | | | | | [phone] | Sinoatrial node | | | | | | dysfunction (HCC) | | | | | | with symptomatic | | | | | | bradycardia | +--------+ + + + + documented as of this encounter Visit Diagnoses Not on filedocumented in this encounter"
--- OUTSIDE RECORDS SUMMARY | ~2020-04-15 | XMS | Encounter Summary ---
Demographics + + + | Address | [address] | | | [place] [address] | + + + | Home Phone [...] Team Providers + +------+ + | Care Swimming Pool Salesperson Name | Role | Phone | [...] | SLEEP DISORDER [address] | [address] | Dx) | | | | [address] [place] [place] | [place] | | | | | [place] [address] | [address] | | | | | [phone] | | | +--------+---------+ + + + [...] pillows obtained from: [facility] [place] pressure is: 13 cm CPAP download shows [...] to go to [facility] [place] to have them download his memory card. I will readjust his pressure, if necessary. I will call him with the results. He is to work toward wearing his CPAP 100% of the time he is asleep. I will follow up again in 1 month, sooner prn. Fifteen minutes were spent [id number], wi th the majority of time spent [...] W | | | | | | [place], | | | | | | [place] [address] | | | | | | [phone] | | | | | | | | +--------+ + + + + | 05/01/ | Procedure | Cardiology | | | | 2019 | visit | | | | +--------+ + + + + | 05/01/ | Office | Cardiology | Silvia, | | | 2019 | Visit | | [address] | | | | | | [place], | | | | | | [place] [address] | | | | | | [phone] | | | | | | | | +--------+ + + + + | 05/21/ | Implant | Cardiology | SunshinecherelleDaljit, | Remote Device | | 2019 | Monitor | | 401 [facility] | Interrogation | | | | | [place], | (Primary Dx); | | | | | [place] [address] | Pacemaker; | | | | | [phone] | Sinoatrial node | | | | [...]
--- OUTSIDE RECORDS SUMMARY | ~2020-04-15 | XMS | Encounter Summary ---
Demographics + + + | Address | [address] | | | [place] [address] | + + + | Home Phone [...] Providers + +------+ + | Care Financial Management Name | Role | Phone | + +------+ + PCP | Unavailable | + +------+ + Encounter Details +--------+ + + + + | Date | Type | Department | Care Team | Description | +--------+ + + + + | 06/25/ | [facility] | [facility] | Daljit Singletary, | | | 2008 | Encounter | MED CTR XRAY [address] | [address] [place] | | | | | [place] | [place], | | | | | [place] [address] | [place] [address] | | | | | [phone] | [phone] | | | | | | | [...] | | | | | | [place], | | | | | | [place] [address] | | | | | | [phone] | | | | | | | | +--------+ + + + + | 05/01/ | Procedure | Cardiology | | | | 2019 | visit | | | | +--------+ + + + + | 05/01/ | Office | Cardiology | Silvia, | | | 2019 | Visit | | [address] | | | | | | [place], | | | | | | [place] [address] | | | | | | [phone] | | | | | | | | +--------+ + + + + | 05/21/ | Implant | Cardiology | Daljit Singletary, | Remote Device | 2019 | Monitor | | [address] [place] | Interrogation | | | | | [place], | (Primary Dx); | | | | | [place] [address] | Pacemaker; | | | | | [phone] | Sinoatrial node | | | | | | dysfunction (HCC) | | | | | | with symptomatic | | | | | | bradycardia | +--------+ + + + + documented as of this encounter Visit Diagnoses Not on filedocumented in this encounter"
--- OUTSIDE RECORDS SUMMARY | ~2020-04-15 | XMS | Encounter Summary ---
Demographics + + + | Address | [address] | | | [place] [address] | + + + | Home Phone [...] + +------+ + | Care Gas Turbine Assembler Name | Role | Phone | [...] 2012 | | CARDIOLOGY [address] | 8TH GRADE TEACHER [address] [place] | | | | | [place], | [place] [facility], [place] | | | | | [place] [address] | [address] | | | | | [phone] | | | +--------+ + + + [...] | | | | | | [place], | | | | | | [place] [address] | | | | | | [phone] | | | | | | | | +--------+ + + + + | 05/01/ | Procedure | Cardiology | | | | 2019 | visit | | | | +--------+ + + + + | 05/01/ | Office | Cardiology | Silvia, | | | 2019 | Visit | | [address] | | | | | | [place], | | | | | | [place] [address] | | | | | | [phone] | | | | | | | | +--------+ + + + + | 05/21/ | Implant | Cardiology | Daljit Singletary, | Remote Device | 2019 | Monitor | | MD [address] | Interrogation | | | | | [place], | (Primary Dx); | | | | | [place] [address] | Pacemaker; | | | | | [phone] | Sinoatrial node | | | | | | dysfunction (HCC) | | | | | | with symptomatic | | | | | | bradycardia | +--------+ + + + + documented as of this encounter Visit Diagnoses Not on filedocumented in this encounter"
--- OUTSIDE RECORDS SUMMARY | ~2020-04-15 | XMS | Encounter Summary ---
Demographics + + + | Address | [address] | | | [place] [address] | + + + | Home Phone [...] Providers + +------+ + | Care Grain Combine Driver Name | Role | Phone | [...] [address] | | | | | | [place], [place] | (Fax) | | | | | [address] | | | | | | [phone] | | | +--------+ + + + [...] | | | | | | [place] [address] | | | | | | [phone] | | | | | | | | +--------+ + + + + | 05/01/ | Procedure | Cardiology | | | | 2019 | visit | | | | +--------+ + + + + | 05/01/ | Office | Cardiology | [place], | | | 2019 | Visit | | PARISA Vernon [address] | | | | | | [place], | | | | | | [place] [address] | | | | | | [phone] | | | | | | | | +--------+ + + + + | 05/21/ | Implant | Cardiology | Daljit Singletary, | Remote Device | | 2019 | Monitor | | [address] [place] | Interrogation | | | | | [place], | (Primary Dx); | | | | | [place] [address] | Pacemaker; | | | | | [phone] | Sinoatrial node | | | | | | dysfunction (HCC) | | | | | | with symptomatic | | | | | | bradycardia | +--------+ + + + + documented as of this encounter Visit Diagnoses Not on filedocumented in this encounter"
--- OUTSIDE RECORDS SUMMARY | ~2020-04-15 | XMS | Encounter Summary ---
Demographics + + + | Address | [address] | | | [place] [address] | + + + | Home Phone [...] Providers + +------+ + | Care Administrative Representative Name | Role | Phone | [...] + | 08/24/ | Office | [facility] | [place], | Ascending thoracic | | 2018 | Visit | CARDIOLOGY [address] | PAR[place] [address] | aortic aneurysm | | | | [place], | [place], | ([facility]) (Primary Dx); | | | | [place] [address] | [place] [address] | Syncope, unspecified | | | | [phone] | [phone] | syncope type; | | | | | | Hypertension, | | | | | | unspecified type; | | | | | | Coronary artery | | | | | | disease involving | | | | | | tyonek coronary | | | | | | artery of tyonek | | | | | | heart [...] of non-critical coronary artery d isease involving tyonek coronary artery of ty[place] heart without angina pectoris, essential h ypertension, [...] Preventative health care Coronary artery disease involving tyonek coronary artery of tyonek heart without angina pectoris Cannabis abuse, daily [...] by mouth Daily. 90 tabl et 1 [facility] Natural [...] 3RD DOSE, CALL 911 100 tablet 3 Clarence-3 Fatty Acids (SALMON OIL-1000 PO) CAPS, one capsule by mouth daily twice daily ONE TOUCH DELICA LANCETS [facility] Check glucose as needed for hypoglycemia 100 [...] now present Confirmed by HIREN WINKLER, ANGELA ([id number]) on 07/28/2018 6:03:35 AM LAB RESULTS reviewed [...] PLTEX 157 04/11/2018 I reviewed records from [facility] for emergency department visit o n 07/27/2018 [...] to go back in 3 days to [place] for an attempt of ablation under [...] He is in class II of the [employer] f unctional class. There are [...] subsided. 2. Non-critical Coronary artery disease involving tyonek coronary artery of tyonek heart [facility] angina pectoris: A. Normal exercise sestamibi stress [...] cannot completely be ruled out . D. [facility] 12/25/13, shows non critical coronary [...] this chart may have been created with Beautylish voice recognition software. Occasi onal wrong-word or [...] | | | | | | [place] [address] | | | | | | [phone] | | | | | | | | +--------+ + + + + | 05/01/ | Procedure | Cardiology | | | | 2019 | visit | | | | +--------+ + + + + | 05/01/ | Office | Cardiology | [place], | | | 2019 | Visit | | PARISA Vernon [address] | | | | | | [place], | | | | | | [place] [address] | | | | | | [phone] | | | | | | | | +--------+ + + + + | 05/21/ | Implant | Cardiology | Daljit Singletary, | Remote Device | | 2019 | Monitor | | [address] [place] | Interrogation | | | | | [place], | (Primary Dx); | | | | | [place] [address] | Pacemaker; | | | | | [phone] | Sinoatrial node | | | | [...] + + | Coronary artery disease involving tyonek coronary artery of tyonek heart without | | angina pectoris | [...]
--- OUTSIDE RECORDS SUMMARY | ~2020-04-15 | XMS | Encounter Summary ---
Demographics + + + | Address | [address] | | | [place] [address] | + + + | Home Phone [...] 2019 | | GASTROENTEROLOGY | [address] [place] | (stomach cramps and | | | | [address] [place] | [address] [place], [place] | liquid stool) | | | | [address] [place], [place] | [address] | | | | | [address] | | | | | | [phone] | | | +--------+ + + + [...] | | | | | | [place] [address] | | | | | | [phone] | | | | | | | | +--------+ + + + + | 05/01/ | Procedure | Cardiology | | | | 2019 | visit | | | | +--------+ + + + + | 05/01/ | Office | Cardiology | Silvia, | | | 2019 | Visit | | PARISA [address] W | | | | | | [place], | | | | | | [place] [address] | | | | | | [phone] | | | | | | | | +--------+ + + + + | 05/21/ | Implant | Cardiology | Daljit Singletary, | Remote Device | | 2019 | Monitor | | [address] | Interrogation | | | | | [place], | (Primary Dx); | | | | | [place] [address] | Pacemaker; | | | | | [phone] | Sinoatrial node | | | | [...]
--- OUTSIDE RECORDS SUMMARY | ~2020-04-15 | XMS | Encounter Summary ---
Demographics + + + | Address | [address] | | | [place] [address] | + + + | Home Phone [...] Team Providers + +------+ + | Care Welcome Wagon Hostess Name | Role | Phone | + [...] | ER FUP | [address] | [address] | | | | | Procedures | [place], | [place], | | | | | FUP | [place] [address] | [place] [address] | | | | | | Phone: | Phone: | | | | | | [phone] | [phone] | | | | | | Fax: | Fax: | | | | | | [phone] | [phone] | +--------+--------+ + + + + Encounter Details +--------+---------+ + + + | Date | Type | Department | Care Team | Description | +--------+---------+ + + + | 02/11/ | Office | [facility] | [place], | Coronary artery | | 2016 | Visit | CARDIOLOGY [address] | Janeen LADLE WATCHER [address] | disease involving | | | | [place], | [place], | duckwater coronary | | | | [place] [address] | [place] [address] | artery of duckwater | | | | [phone] | [phone] | heart without angina | | | [...] of non-critical coronary artery d isease involving duckwater coronary artery of duckwater heart without angina pectoris, essential h ypertension, [...] him. He sleeps on 1 pillow at [facility] without any shortness of breath. Overall, he has been doing well otherwise than the [facility] iety. MEDICAL, SURGICAL, AND PERSONAL [...] Preventative health care Coronary artery disease involving duckwater coronary artery of duckwater heart without angina pectoris Cannabis abuse, daily [...] by mouth every evening 90 tablet 3 [employer] [facility] [employer] Natural Products (OSTEO BI-FLEX/5-LOXIN [...] 3RD DOSE, CALL 911 100 tablet 3 Orange-3 Fatty Acids (SALMON OIL-1000 PO) CAPS, one [...] was found Confirmed by ANGELA MARADIAGA MD ([id number]) on 01/25/2017 6:45:26 AM LAB RESULTS reviewed during visit today primarily from [facility]: LIPID Lab Results Component Value Date [...] 162 11/05/2016 I [address] records from [facility] for emergency department visit o n 01/2017 which is summarized in the HPI. Above data and testing is reviewed this visit; testing below is historical data unless othe rwise specified. ASSESSMENT: 1. Essential hypertension with goal blood pressure less than 130/80: A. Today it has been well controlled 110 mmHg. He is in class I of t he [place] Heart Association functional class. On physical examination there are no signs of fluid overload. 2. Non-critical Coronary artery disease involving duckwater coronary a rtery of duckwater heart without angina pectoris: A. Normal exercise [...] to go back in 3 days to [place] for an attempt of ablation under general [...] a normal stable device function. Estimated remaining [facility] longevity is 3.5 years.. 5. Lightheadedness [...] this chart may have been created with [employer] voice recognition software. Occasi onal wrong-word or [...] | | | | | | [place] [address] | | | | | | [phone] | | | | | | | | +--------+ + + + + | 05/01/ | Procedure | Cardiology | | | | 2019 | visit | | | | +--------+ + + + + | 05/01/ | Office | Cardiology | [place], | | | 2019 | Visit | | PARISA Vernon [address] | | | | | | [place], | | | | | | [place] [address] | | | | | | [phone] | | | | | | | | +--------+ + + + + | 05/21/ | Implant | Cardiology | Daljit Singletary, | Remote Device | | 2019 | Monitor | | [address] | Interrogation | | | | | [place], | (Primary Dx); | | | | | [place] [address] | Pacemaker; | | | | | [phone] | Sinoatrial node | | | | | | dysfunction (HCC) | | | | | | with symptomatic | | | | | | bradycardia | +--------+ + + + + documented as of this encounter Visit Diagnoses + + | Diagnosis | + + | Coronary artery disease involving duckwater coronary artery of duckwater heart without | | angina pectoris - Primary | + + | Essential hypertension with goal blood pressure less than 130/80 | + + | Hyperlipidemia, mixed Mixed hyperlipidemia | + + documented in this encounter
--- OUTSIDE RECORDS SUMMARY | ~2020-04-15 | XMS | Encounter Summary ---
Demographics + + + | Address | [address] | | | [place] [address] | + + + | Home Phone [...] + +------+ + | Care Director Of Vocational Training Name | Role | Phone | + +------+ + | Michael Amanda DO | PCP | | + +------+ + Encounter Details +--------+ + + + + | Date | Type | Department | Care Team | Description | +--------+ + + + + | 12/25/ | Hospital | [facility] | Daljit iSngletary, | | | 2013 | Encounter | MED CTR XRAY [address] | [address] | | | | | [place] | [place], | | | | | [place] [address] | [place] [address] | | | | | [phone] | [phone] | | | | | | | [...] | | | | | | [place] [address] | | | | | | [phone] | | | | | | | | +--------+ + + + + | 05/01/ | Procedure | Cardiology | | | | 2019 | visit | | | | +--------+ + + + + | 05/01/ | Office | Cardiology | [place], | | | 2019 | Visit | | PARISA Vernon [address] | | | | | | [place], | | | | | | [place] [address] | | | | | | [phone] | | | | | | | | +--------+ + + + + | 05/21/ | Implant | Cardiology | Daljit Singletary, | Remote Device | | 2019 | Monitor | | [address] [place] [address] | Interrogation | | | | | [place], | (Primary Dx); | | | | | [place] [address] | Pacemaker; | | | | | [phone] | Sinoatrial node | | | | [...] [facility] Diagnostic Imaging | [place] | | Department [address] [place] [address] | [facility] | | [ rep ct street[address]] [ rep [facility] | | st zip] Signed | - IMAGING | | | | | Patient Name: MOE GAY | | | Physician: MIGUELINA : 1960 Age: 53 Sex: M Unit | | | #: [id number] Exam Date: 12/25/13 Location: | | | SDS SDS-D Report #: [id number] Page: | | | %(RAD)RES..mtdd.print.filter("pg") of %(RAD) | | | RES..mtdd.print.filter("tpg") | | | | | | Accession Number: [id number] | | | LEFT HEART CATHETERIZATION, 12/25/2013 [...] the patient was taken to the cardiac distillery laborer. She | | | was prepared and draped in the usual fashion. Under sterile | | | technique and local anesthesia, percutaneous access was obtained | | | using #5 Azerbaijani sheath in the right radial artery. Right heart cath | | | was not performed on this patient. Left ventriculography was | | | performed using #5 multipurpose diagnostic catheter. The selective | | | coronary angiography was then performed in several sagittal and | | | oblique projections using #5 multipurpose and #5 Azerbaijani JL 3.5 | | | diagnostic catheters. [...] Transcribed | | | Date/Time: 12/25/2013 11:52 Shift Commander: | | | <<Signature on File>> | | | Daljit | | | MD Gemini [facility] FAS12/25/13 1343 <Electronically signed by | | | Daljit Singletary MD, [facility], FACP, ADELINE, YEN> Daljit | | | MD Gemini [facility] ADELINE 12/25/13 1035 Shift Commander: Jessica | | | Ravvprwptgola22/03/14 1152 | | + + + + + + + + | Performing | Address | City/State/Zipcode | Phone Number | | Organization | | | | + + + + + | [facility] | [address] | [place] | [phone] | | [facility] | | [address] | | | - IMAGING | | | | + + + + + documented in this encounter Visit Diagnoses Not on filedocumented in this encounter
--- OUTSIDE RECORDS SUMMARY | ~2020-04-15 | XMS | Encounter Summary ---
Demographics + + + | Address | [address] | | | [place] [address] | + + + | Home Phone [...] Team Providers + +------+ + | Care Barker Operator Name | Role | Phone | [...] + + | 02/15/ | Office | [facility] | Jay Cohn PA | DIDIER (obstructive | | 2012 | Visit | SLEEP DISORDER [address] | [address] | sleep apnea) | | | | [address] [place] | [place] | (Primary Dx) | | | | [place] [address] | [address] | | | | | [phone] | | | +--------+---------+ + + + [...] in this encounter Patient Instructions Patient Instructions aJy Cohn PA - 02/15/2013 10:09 AM PDTGo to [facility] for replacement equipment including: Nasal pillows or [...] pillows obtained from: [facility] [place] pressure is: 13 cm CPAP download shows [...] to go to [facility] [place] to replace his equipment, but it had [...] to go to [facility] in [place] to g et a new mask and filter. He is to work toward wearing his CPAP 100% of the time he is asle ep. I will follow up again in 1 month, sooner prn. Fifteen minutes were spent jbmr-hy-jteb, wi th the majority of time spent [...] | | | | | | [place], | | | | | | [place] [address] | | | | | | [phone] | | | | | | | | +--------+ + + + + | 05/01/ | Procedure | Cardiology | | | | 2019 | visit | | | | +--------+ + + + + | 05/01/ | Office | Cardiology | [place], | | | 2019 | Visit | | PARISA Vernon [address] | | | | | | [place], | | | | | | [place] [address] | | | | | | [phone] | | | | | | | | +--------+ + + + + | 05/21/ | Implant | Cardiology | Daljit Singletary, | Remote Device | | 2020 | Monitor | | [address] [facility] | Interrogation | | | | | [place], | (Primary Dx); | | | | | [place] [address] | Pacemaker; | | | | | [phone] | Sinoatrial node | | | | [...]
--- OUTSIDE RECORDS SUMMARY | ~2020-04-15 | XMS | Encounter Summary ---
Demographics + + + | Address | [address] | | | [place] [address] | + + + | Home Phone [...] | CARDIOLOGY [address] [place] | Interrogation | | | | [place], | [place], | (Primary Dx); | | | | [place] [address] | [place] [address] | Presence of | | | | [phone] | [phone] | permanent cardiac | | | | [...] | | | | | | [place] [address] | | | | | | [phone] | | | | | | | | +--------+ + + + + | 05/01/ | Procedure | Cardiology | | | | 2019 | visit | | | | +--------+ + + + + | 05/01/ | Office | Cardiology | [place], | | | 2019 | Visit | | PARISA Vernon [address] | | | | | | [place], | | | | | | [place] [address] | | | | | | [phone] | | | | | | | | +--------+ + + + + | 05/21/ | Implant | Cardiology | Daljit Singletary, | Remote Device | | 2019 | Monitor | | [address] [facility] | Interrogation | | | | | [place], | (Primary Dx); | | | | | [place] [address] | Pacemaker; | | | | | [phone] | Sinoatrial node | | | | [...] Paceart documentation and remote PDF scanned into [employer] | | | for remote interrogation results. [...]
--- OUTSIDE RECORDS SUMMARY | ~2020-04-15 | XMS | Encounter Summary ---
Demographics + + + | Address | [address] | | | [place] [address] | + + + | Home Phone [...] Providers + +------+ + | Care Eligibility Examiner Name | Role | Phone | [...] [address] | | | | | [place], | [place], | | | | | [place] [address] | [place] [address] | | | | | [phone] | [phone] | | | | | | | [...] | | | | | | [place] [address] | | | | | | [phone] | | | | | | | | +--------+ + + + + | 05/01/ | Procedure | Cardiology | | | | 2019 | visit | | | | +--------+ + + + + | 05/01/ | Office | Cardiology | [place] | | | 2019 | Visit | | Janeen, REFRIGERATED CARGO CLERK [address] | | | | | | [place], | | | | | | [place] [address] | | | | | | [phone] | | | | | | | | +--------+ + + + + | 05/21/ | Implant | Cardiology | Daljit Singletary, | Remote Device | | 2020 | Monitor | | MD [address] [place] | Interrogation | | | | | [place], | (Primary Dx); | | | | | [place] [address] | Pacemaker; | | | | | [phone] | Sinoatrial node | | | | | | dysfunction (HCC) | | | | | | with symptomatic | | | | | | bradycardia | +--------+ + + + + documented as of this encounter Visit Diagnoses Not on filedocumented in this encounter"
--- OUTSIDE RECORDS SUMMARY | ~2020-04-15 | XMS | Encounter Summary ---
Demographics + + + | Address | [address] | | | [place] [address] | + + + | Home Phone [...] Team Providers + +------+ + | Care Vector Control Assistant Name | Role | Phone | [...] + | 12/23/ | Telephone | [facility] | Emmanuel Daniel MD | Other (Needs to know | | 2017 | | GASTROENTEROLOGY | [address] [place], [place] | what he can eat | | | | [address] [place] | [address] [place], [place] | today) | | | | [address] [place], [place] | [address] | | | | | [address] | | | | | | [phone] | | | +--------+ + + + [...] | | | | | | [place] [address] | | | | | | [phone] | | | | | | | | +--------+ + + + + | 05/01/ | Procedure | Cardiology | | | | 2019 | visit | | | | +--------+ + + + + | 05/01/ | Office | Cardiology | [place], | | | 2019 | Visit | | PARISA Vernon [address] | | | | | | [place], | | | | | | [place] [address] | | | | | | [phone] | | | | | | | | +--------+ + + + + | 05/21/ | Implant | Cardiology | Daljit Singletary, | Remote Device | | 2019 | Monitor | | [address] [facility] | Interrogation | | | | | [place], | (Primary Dx); | | | | | [place] [address] | Pacemaker; | | | | | [phone] | Sinoatrial node | | | | | | dysfunction (HCC) | | | | | | with symptomatic | | | | | | bradycardia | +--------+ + + + + documented as of this encounter Visit Diagnoses Not on filedocumented in this encounter"
--- OUTSIDE RECORDS SUMMARY | ~2020-04-15 | XMS | Encounter Summary ---
Demographics + + + | Address | [address] | | | [place] [address] | + + + | Home Phone [...] Team Providers + +------+ + | Care Catastrophe Claims Supervisor Name | Role | Phone | [...] | unspecified | MD Jacek | [address] | | | | | type | [address] | [place], | | | | | Unintentiona | [place] | [place] [address] | | | | | l weight | [place], [place] | Phone: | | | | | loss | [address] | [phone] | | | | | Procedures | Phone: | Fax: | | | | | [place] [facility] | [phone] | [phone] | | | | | INTRALUMINAL | Fax: | | | | | | | [phone] | | | | | | ESOPHAGUS-IL [...] (Primary Dx); | | | | [address] [place], [place] | [place] [address] | Unintentional weight | | | | [address] | [phone] | loss | | | | [phone] | | | +--------+ + + + [...] | | | | | | [place] [address] | | | | | | [phone] | | | | | | | [...] | | | | | | [place] [address] | | | | | | [phone] | | | | | | | | +--------+ + + + + | 05/21/ | Implant | Cardiology | Daljit Singletary, | Remote Device | | 2019 | Monitor | | [address] | Interrogation | | | | | [place], | (Primary Dx); | | | | | [place] [address] | Pacemaker; | | | | | [phone] | Sinoatrial node | | | | [...]
--- OUTSIDE RECORDS SUMMARY | ~2020-04-15 | XMS | Encounter Summary ---
Demographics + + + | Address | [address] | | | [place] [address] | + + + | Home Phone [...] Team Providers + +------+ + | Care Endo Tech Name | Role | Phone | [...] Provider Unknown | | | | | [place], [place] | [phone] | | | | | [address] | | | | | | [phone] | | | +--------+ + + + [...] + + + +---------+ + + | Moody-3 Fatty | CAPS, one capsule by | [...] | | | | | | [place] [address] | | | | | | [phone] | | | | | | | [...] | | | | | | [place] [address] | | | | | | [phone] | | | | | | | | +--------+ + + + + | 05/21/ | Implant | Cardiology | Daljit Singletary, | Remote Device | 2019 | Monitor | | [address] [place] | Interrogation | | | | | [place], | (Primary Dx); | | | | | [place] [address] | Pacemaker; | | | | | [phone] | Sinoatrial node | | | | | | dysfunction ([facility]) | | | | | [...]
--- OUTSIDE RECORDS SUMMARY | ~2020-04-15 | XMS | Encounter Summary ---
Demographics + + + | Address | [address] | | | [place] [address] | + + + | Home Phone [...] Team Providers + +------+ + | Care Multineedle Shirrer Name | Role | Phone | + +------+ + PCP | Unavailable | + +------+ + Encounter Details +--------+ + + + + | Date | Type | Department | Care Team | Description | +--------+ + + + + | 10/09/ | [facility] | [facility] | Jonathan, | | | 2008 | Encounter | MED CTR EMERGENCY | Martell Cr MD [address] | | | | | CENTER [address] | [place] | | | | | [place] | [place] [address] | | | | | [address] | [phone] | | | | | [phone] | | | +--------+ + + + [...] W | | | | | | [place], | | | | | | [place] [address] | | | | | | [phone] | | | | | | | | +--------+ + + + + | 05/01/ | Procedure | Cardiology | | | | 2019 | visit | | | | +--------+ + + + + | 05/01/ | Office | Cardiology | Silvia | | | 2019 | Visit | | PARISA [place] [address] | | | | | | [place], | | | | | | [place] [address] | | | | | | [phone] | | | | | | | | +--------+ + + + + | 05/21/ | Implant | Cardiology | Daljit Singletary, | Remote Device | 2019 | Monitor | | MD Sim [place] | Interrogation | | | | | [place], | (Primary Dx); | | | | | [place] [address] | Pacemaker; | | | | | [phone] | Sinoatrial node | | | | | | dysfunction (HCC) | | | | | | with symptomatic | | | | | | bradycardia | +--------+ + + + + documented as of this encounter Visit Diagnoses Not on filedocumented in this encounter"
--- OUTSIDE RECORDS SUMMARY | ~2020-04-15 | XMS | Encounter Summary ---
Demographics + + + | Address | [address] | | | [place] [address] | + + + | Home Phone [...] Providers + +------+ + | Care Life Enrichment Director Name | Role | Phone | [...] | Visit | CARDIOLOGY [address] | BLEACH TESTER [address] [place] | Dx) | | | | [place], | [place], [place] | | | | | [place] [address] | [address] | | | | | [phone] | | | +--------+---------+ + + + [...] Sanchez Date: December 21, 2012 : 1960 Culinary Art Teacher: PARISA Velazquez Device It Director: Medtronic Sense (mV) Impedance (?) Capture (V) Capture (ms) A Lead 4-5.6 423 1.5 0.09 RV Lead >31.36 539 2.0 0.09 LV Lead Battery Impedance (?): 301 Battery Voltage (V): 2.8 [place] Interval (ms): 140 AR Interval (ms): 210 VA Conduction: Mode Switch Events: N/A % of time: -HOG KILLER: 0.6 AP-HOG KILLER: 1.3 -VS: 23.9 AP-VS: 74.2 HOG KILLER: Magnetic Rate: 85 LINDA: 65 LEAH: Current [...] | | | | | | [place] [address] | | | | | | [phone] | | | | | | | | +--------+ + + + + | 05/01/ | Procedure | Cardiology | | | | 2019 | visit | | | | +--------+ + + + + | 05/01/ | Office | Cardiology | Silvia, | | | 2019 | Visit | | PARISA [place] [address] | | | | | | [place], | | | | | | [place] [address] | | | | | | [phone] | | | | | | | | +--------+ + + + + | 05/21/ | Implant | Cardiology | Daljit Singletary, | Remote Device | 2019 | Monitor | | [address] [place] | Interrogation | | | | | [place], | (Primary Dx); | | | | | [place] [address] | Pacemaker; | | | | [phone] | Sinoatrial node | | | | [...]
--- OUTSIDE RECORDS SUMMARY | ~2020-04-15 | XMS | Encounter Summary ---
Demographics + + + | Address | [address] | | | [place] [address] | + + + | Home Phone [...] Providers + +------+ + | Care Health Service Coordinator Name | Role | Phone | [...] + | 06/20/ | Telephone | [facility] | Daljit Singlteary, | Chest Pain | | 2018 | | CARDIOLOGY [address] | MD [address] [place] | | | | | [place], | [place], | | | | | [place] [address] | [place] [address] | | | | | [phone] | [phone] | | | | | | | [...] | | | | | | [place] [address] | | | | | | [phone] | | | | | | | | +--------+ + + + + | 05/01/ | Procedure | Cardiology | | | | 2019 | visit | | | | +--------+ + + + + | 05/01/ | Office | Cardiology | Silvia, | | | 2019 | Visit | | PARISA Vernon [address] | | | | | | [place], | | | | | | [place] [address] | | | | | | [phone] | | | | | | | | +--------+ + + + + | 05/21/ | Implant | Cardiology | Daljit Singletary, | Remote Device | | 2019 | Monitor | | [address] [facility] | Interrogation | | | | | [place], | (Primary Dx); | | | | | [place] [address] | Pacemaker; | | | | | [phone] | Sinoatrial node | | | | | | dysfunction (HCC) | | | | | | with symptomatic | | | | | | bradycardia | +--------+ + + + + documented as of this encounter Visit Diagnoses Not on filedocumented in this encounter"
--- OUTSIDE RECORDS SUMMARY | ~2020-04-15 | XMS | Encounter Summary ---
Demographics + + + | Address | [address] | | | [place] [address] | + + + | Home Phone [...] Providers + +------+ + | Care Assembler Latches And Springs Name | Role | Phone | + [...] [place] | | | | | | [address] | | | | | | [phone] | | | +--------+ + + + [...] | | | | | | [place], | | | | | | [place] [address] | | | | | | [phone] | | | | | | | | +--------+ + + + + | 05/01/ | Procedure | Cardiology | | | | 2019 | visit | | | | +--------+ + + + + | 05/01/ | Office | Cardiology | Silvia, | | | 2019 | Visit | | [address] | | | | | | [place], | | | | | | [place] [address] | | | | | | [phone] | | | | | | | | +--------+ + + + + | 05/21/ | Implant | Cardiology | Daljit Singletary, | Remote Device | | 2019 | Monitor | | [facility] | Interrogation | | | | | [place], | (Primary Dx); | | | | | [place] [address] | Pacemaker; | | | | | [phone] | Sinoatrial node | | | | | | dysfunction (HCC) | | | | | | with symptomatic | | | | | | bradycardia | +--------+ + + + + documented as of this encounter Visit Diagnoses Not on filedocumented in this encounter"
--- OUTSIDE RECORDS SUMMARY | ~2020-04-15 | XMS | Encounter Summary ---
Demographics + + + | Address | [address] | | | [place] [address] | + + + | Home Phone [...] Providers + +------+ + | Care Diesel Fitter Mechanic Name | Role | Phone | [...] | | | | CENTER [address] | [place] | (Primary Dx) | | 07/28/ | | [place] | [address] | | | 2017 | | [address] | | | | | | [phone] | | | +--------+ + + + [...] sent through Care Everywhere.Chest Pain, Non cardiac (Lithuanian)documented in this encounter Medications at Time [...] + + + +---------+ + + | Elliott-3 Fatty | CAPS, one capsule by | [...] | | | | | | [place] [address] | | | | | | [phone] | | | | | | | [...] | | | | | | [place] [address] | | | | | | [phone] | | | | | | | | +--------+ + + + + | 05/21/ | Implant | Cardiology | Daljit Singletary, | Remote Device | 2019 | Monitor | | [address] | Interrogation | | | | | [place], | (Primary Dx); | | | | | [place] [address] | Pacemaker; | | | | | [phone] | Sinoatrial node | | | | [...] W?MRN: | | | | | | [id number] | | | [id number] | | | his | | | [...] | | | ent/60 | | | [id number] | | | -5586- | | | [...] | | | St. | | | [place] | | | y | | | [...] | | | ext. | | | [id number] | | | or go | | [...] | | | M.D. | | | Resort Desk Clerk | | | al | | [...] + | [facility] | [address] | [place] | [phone] | | [facility] | | [address] | | | - LABORATORY | | [...] mL/min/1.73m2 | [facility] | | | [place] | RATE,ESTIMATED | | MEDICAL | | | | mL/min/1.68l5Bohn than | | CENTER - | | [...] + | [facility] | [address] | [place] | [phone] | | [facility] | | [address] | | | - LABORATORY | | [...] | | | | | | [facility] | | [...] + | [facility] | [address] | [place] | [phone] | | [facility] | | [address] | | | - LABORATORY | | [...] | | | | HIREN WINKLER, ANGELA ([id number]) | | | | | | on [...]
--- OUTSIDE RECORDS SUMMARY | ~2020-04-15 | XMS | Encounter Summary ---
Demographics + + + | Address | [address] | | | [place] [address] | + + + | Home Phone [...] Providers + +------+ + | Care Electronics Mechanic Name | Role | Phone | [...] | | CARDIOLOGY [address] | [address] [place] | | | | | [place], | [place], | | | | | [place] [address] | [place] [address] | | | | | [phone] | [phone] | | | | | | | [...] | | | | | | [place] [address] | | | | | | [phone] | | | | | | | [...] | | | | | | [place] [address] | | | | | | [phone] | | | | | | | | +--------+ + + + + | 05/21/ | Implant | Cardiology | Daljit Singletary, | Remote Device | | 2019 | Monitor | | MD [address] [place] | Interrogation | | | | | [place], | (Primary Dx); | | | | | [place] [address] | Pacemaker; | | | | | [phone] | Sinoatrial node | | | | [...] [address] | [place] | [phone] | | [facility] | | [address] | | | - LABORATORY | | | | + + + + + | [facility] | [address] [place] [address] | [place] | | | [facility] | | [address], [facility] | | | [...] Y[facility]Y [facility]BS | | | | | [facility] | | | | | - LABORATORY | | | | + +---------+ + + documented in this encounter Visit Diagnoses Not on filedocumented in this encounter"
--- OUTSIDE RECORDS SUMMARY | ~2020-04-15 | XMS | Encounter Summary ---
Demographics + + + | Address | [address] | | | [place] [address] | + + + | Home Phone [...] Team Providers + +------+ + | Care Shade Cloth Finisher Name | Role | Phone | [...] + + | 01/01/ | Telephone | [facility] | Kirk French | Other (Pacemaker) | | 2020 | | [facility] | MD [address] | | | | | [facility] [address] | | | | | [address] | [place] [address] | | | | | [place], [place] | [phone] | | | | | [address] | | | | | | [phone] | | | +--------+ + + + [...] | | | | | | [place] [address] | | | | | | [phone] | | | | | | | | +--------+ + + + + | 05/01/ | Procedure | Cardiology | | | | 2019 | visit | | | | +--------+ + + + + | 05/01/ | Office | Cardiology | Silvia, | | | 2019 | Visit | | PARISA Vernon [address] | | | | | | [place], | | | | | | [place] [address] | | | | | | [phone] | | | | | | | | +--------+ + + + + | 05/21/ | Implant | Cardiology | Daljit Singletary, | Remote Device | 2019 | Monitor | | [address] | Interrogation | | | | | [place], | (Primary Dx); | | | | | [place] [address] | Pacemaker; | | | | | [phone] | Sinoatrial node | | | | | | dysfunction (HCC) | | | | | | with symptomatic | | | | | | bradycardia | +--------+ + + + + documented as of this encounter Visit Diagnoses Not on filedocumented in this encounter"
--- OUTSIDE RECORDS SUMMARY | ~2020-04-15 | XMS | Encounter Summary ---
Demographics + + + | Address | [address] | | | [place] [address] | + + + | Home Phone [...] Team Providers + +------+ + | Care Eeg Technologist Name | Role | Phone | [...] CARDIOLOGY [address] | MD [address] [place] | Interrogation | | | | [place], | [place], | (Primary Dx); | | | | [place] [address] | [place] [address] | Pacemaker; | | | | [phone] | [phone] | Sinoatrial node | | | | [...] | | | | | | [place] [address] | | | | | | [phone] | | | | | | | | +--------+ + + + + | 05/01/ | Procedure | Cardiology | | | | 2019 | visit | | | | +--------+ + + + + | 05/01/ | Office | Cardiology | Silvia, | | | 2019 | Visit | | PARISA [address] W | | | | | | [place], | | | | | | [place] [address] | | | | | | [phone] | | | | | | | | +--------+ + + + + | 05/21/ | Implant | Cardiology | Daljit Singletary, | Remote Device | 2019 | Monitor | | MD Sim [facility] | Interrogation | | | | | [place], | (Primary Dx); | | | | | [place] [address] | Pacemaker; | | | | | [phone] | Sinoatrial node | | | | [...] + + | Performing | Address | City[facility] | Phone Number | | Organization [...]
--- OUTSIDE RECORDS SUMMARY | ~2020-04-15 | XMS | Encounter Summary ---
Demographics + + + | Address | [address] | | | [place] [address] | + + + | Home Phone [...] Team Providers + +------+ + | Care Lacrosse Coach Name | Role | Phone [...] Refill | | 2014 | | [facility] [place] | DO [address] | | | | | [address] | [place] | | | | | [place], [place] | [address] | | | | | [address] | | | | | | [phone] | | | +--------+--------+ + + + [...] W | | | | | | [place], | | | | | | [place] [address] | | | | | | [phone] | | | | | | | | +--------+ + + + + | 05/01/ | Procedure | Cardiology | | | | 2019 | visit | | | | +--------+ + + + + | 05/01/ | Office | Cardiology | Silvia, | | | 2019 | Visit | | [address]ISA [address] W | | | | | | [place], | | | | | | [place] [address] | | | | | | [phone] | | | | | | | | +--------+ + + + + | 05/21/ | Implant | Cardiology | Daljit Singletary, | Remote Device | | 2019 | Monitor | | [address] [place] | Interrogation | | | | | [place], | (Primary Dx); | | | | | [place] [address] | Pacemaker; | | | | | [phone] | Sinoatrial node | | | | | | dysfunction (HCC) | | | | | | with symptomatic | | | | | | bradycardia | +--------+ + + + + documented as of this encounter Visit Diagnoses Not on filedocumented in this encounter"
--- OUTSIDE RECORDS SUMMARY | ~2020-04-15 | XMS | Encounter Summary ---
Demographics + + + | Address | [address] | | | [place] [address] | + + + | Home Phone [...] Team Providers + +------+ + | Care Histologist Technologist Name | Role | Phone | [...] + + | 08/17/ | Office | [facility] | Michael Amanda, | Testosterone | | 2012 | Visit | [facility] [place] | DO [address] | deficiency (Primary | | | | [address] | [place] | Dx); Hypoglycemia; | | | | [place] | [address] | Herpes | | | | [address] | | | | | | [phone] | | | +--------+---------+ + + + [...] lowering his testosterone levels. He seen at [facility]. He was prescribed OxyContin and [...] erectile dy sfunction. He was seen at [facility] yesterday and they prescribed him testostero ne cypionate injections. He's not sure when they wanted him to come back for labs. He has a followup appointment with [facility] in one month. Patient complains [...] HTN (hypertension); Hypercholesterolemia; Bipolar 1 disorder; Insomnia; Hand Tool Filer jennifer neck pain; Depression; Hyperlipidemia; BIPOLAR DISORDER [...] per orders. This note is dictated using Valentin Uzhun voice recognition software. This note was dictated [...] W | | | | | | [place], | | | | | | [place] [address] | | | | | | [phone] | | | | | | | | +--------+ + + + + | 05/01/ | Procedure | Cardiology | | | | 2019 | visit | | | | +--------+ + + + + | 05/01/ | Office | Cardiology | Silvia, | | | 2019 | Visit | | PARISA Vernon [address] | | | | | | [place], | | | | | | [place] [address] | | | | | | [phone] | | | | | | | | +--------+ + + + + | 05/21/ | Implant | Cardiology | Daljit Singletary, | Remote Device | | 2020 | Monitor | | [facility] | Interrogation | | | | | [place], | (Primary Dx); | | | | | [place] [address] | Pacemaker; | | | | | [phone] | Sinoatrial node | | | | [...]
--- OUTSIDE RECORDS SUMMARY | ~2020-04-15 | XMS | Encounter Summary ---
Demographics + + + | Address | [address] | | | [place] [address] | + + + | Home Phone [...] Providers + +------+ + | Care Sap Abap Developer Name | Role | Phone | [...] + + | 05/14/ | Office | [facility] | [place]via, | Coronary artery | | 2013 | Visit | CARDIOLOGY [address] | [address] | disease (Primary | | | | [place], | [place], | Dx); Hypertension; | | | | [place] [address] | [place] [address] | Hyperlipidemia; | | | | [phone] | [phone] | Syncope; Other chest | | | [...] for Chest pain. 25 tablet 12 [place]-3 Fatty Acids (SALMON OIL-1000 PO) CAPS, [...] attenuation cannot completely be ruled out. [facility]. [facility] 12/25/13, shows noncritical coronary artery [...] exercising. He is in class II of [place] Heart Association functional class. There are no [...] ventricular arrhythmia performed by Dr. Gambino at [facility] on 01/30/2013. Patient had spontaneous [...] to go back in 3 days to [place] for an attempt of ablation under general [...] palpitations.. He is in class II of [place] Heart Association functional class. There are no [...] his blood pressure logs from [facility]. Lightheadedness and dizziness/ presyncope: A. Episode [...] made to ensure accuracy; however, inadvertent computerized embossing tool setter errors may be pre sent. Electronically signed [...] W | | | | | | [place], | | | | | | [place] [address] | | | | | | [phone] | | | | | | | | +--------+ + + + + | 05/01/ | Procedure | Cardiology | | | | 2019 | visit | | | | +--------+ + + + + | 05/01/ | Office | Cardiology | Silvia, | | | 2019 | Visit | | [address] | | | | | | [place], | | | | | | [place] [address] | | | | | | [phone] | | | | | | | | +--------+ + + + + | 05/21/ | Implant | Cardiology | Daljit Singletary, | Remote Device | | 2019 | Monitor | | [facility] | Interrogation | | | | | [place], | (Primary Dx); | | | | | [place] [address] | Pacemaker; | | | | | [phone] | Sinoatrial node | | | | [...] of unspecified type of | | vessel, [place] or graft | + + | Hypertension Unspecified essential hypertension | + + | Hyperlipidemia Other and unspecified hyperlipidemia | + + | Syncope Syncope and collapse | + + | Other chest pain | + + | Chest pain Chest pain, unspecified | + + documented in this encounter
--- OUTSIDE RECORDS SUMMARY | ~2020-04-15 | XMS | Encounter Summary ---
Demographics + + + | Address | [address] | | | [place] [address] | + + + | Home Phone [...] Providers + +------+ + | Care Hospital Director Name | Role | Phone | [...] | CARDIOLOGY [address] | [address] | Interrogation | | | | [place], | [place], | (Primary Dx); | | | | [place] [address] | [place] [address] | Presence of | | | | [phone] | [phone] | permanent cardiac | | | | [...] | | | | | | [place] [address] | | | | | | [phone] | | | | | | | | +--------+ + + + + | 05/01/ | Procedure | Cardiology | | | | 2019 | visit | | | | +--------+ + + + + | 05/01/ | Office | Cardiology | Silvia, | | | 2019 | Visit | | [address] | | | | | | [place], | | | | | | [place] [address] | | | | | | [phone] | | | | | | | | +--------+ + + + + | 05/21/ | Implant | Cardiology | Daljit Singletary, | Remote Device | | 2019 | Monitor | | [address] [facility] | Interrogation | | | | | [place], | (Primary Dx); | | | | | [place] [address] | Pacemaker; | | | | | [phone] | Sinoatrial node | | | | [...] Paceart documentation and remote PDF scanned into VirnetX | | | for remote interrogation results. [...]
--- OUTSIDE RECORDS SUMMARY | ~2020-04-15 | XMS | Encounter Summary ---
Demographics + + + | Address | [address] | | | [place] [address] | + + + | Home Phone [...] Providers + +------+ + | Care Procurement Agent Name | Role | Phone | [...] Provider Unknown | | | | | [place], [place] | [phone] | | | | | [address] | | | | | | [phone] | | | +--------+ + + + [...] + + + +---------+ + + | [place]-3 Fatty | CAPS, one capsule by | [...] | | | | | | [place] [address] | | | | | | [phone] | | | | | | | [...] | | | | | | [place] [address] | | | | | | [phone] | | | | | | | | +--------+ + + + + | 05/21/ | Implant | Cardiology | Daljit Singletary, | Remote Device | | 2019 | Monitor | | [address] [place] | Interrogation | | | | | [place], | (Primary Dx); | | | | | [place] [address] | Pacemaker; | | | | | [phone] | Sinoatrial node | | | | [...]
--- OUTSIDE RECORDS SUMMARY | ~2020-04-15 | XMS | Encounter Summary ---
Demographics + + + | Address | [address] | | | [place] [address] | + + + | Home Phone [...] Team Providers + +------+ + | Care Cabinet Mounter Name | Role | Phone | [...] + + | 01/05/ | Office | [facility] | [place]via, | Pacemaker - | | 2018 | Visit | CARDIOLOGY [address] | [address] [place] [address] | [employer] - [id number] | | | | [place], | [place], | [place] Implanted | | | | [place] [address] | [place] [address] | 06/14/2009 (Primary | | | | [phone] | [phone] | Dx); Chest pain, | | | [...] involving | | | | | | [place] coronary | | | | | | artery of [place] | | | | | | heart [...] pain. He went to the ER in [place] because th e NTG didn't relieved the pain. He was diagnosed with bronchitis. Otherwise he has had no ot her symptoms. He has had a good energy level. He tries to stay active. He has joined a [employer] gym and trying to exercise more often. [...] by mouth every evening 90 tablet 0 [facility] [...] 3RD DOSE, CALL 911 100 tablet 3 [place]-3 Fatty Acids (SALMON OIL-1000 PO) CAPS, [...] (A) 10/18/2017 I reviewed records from [facility] for office visit on 01/2017 whic [...] overload. 2. Non-critical Coronary artery disease involving [place] coronary a rtery of [place] heart without angina pectoris: A. Normal exercise [...] to go back in 3 days to [place] for an attempt of ablation under general [...] this chart may have been created with Thwapr voice recognition software. Occasi onal wrong-word or [...] | | | | | | [place] [address] | | | | | | [phone] | | | | | | | | +--------+ + + + + | 05/01/ | Procedure | Cardiology | | | | 2019 | visit | | | | +--------+ + + + + | 05/01/ | Office | Cardiology | Silvia, | | | 2019 | Visit | | [address] | | | | | | [place], | | | | | | [place] [address] | | | | | | [phone] | | | | | | | | +--------+ + + + + | 05/21/ | Implant | Cardiology | Sydni Singletary, | Remote Device | 2019 | Monitor | | [address] [place] | Interrogation | | | | | [place], | (Primary Dx); | | | | | [place] [address] | Pacemaker; | | | | | [phone] | Sinoatrial node | | | | [...] dysfunction | | | | | | ([facility]) with | | | | | | symptomatic | | | | | | bradycardia | | | | | | Symptomatic PVCs | | | | | | Tachycardia | | | | | | Coronary artery | | | | | | disease involving | | | | | | [place] coronary | | | | | | artery of [place] | | | | | | heart [...] | | | | | ([facility]) | | + +--------+ + [...] SYDNI | | | | | | ([id number]) on 01/06/2018 | | | | | [...] + + | Coronary artery disease involving [place]aki[place] coronary artery of [place] heart without | | angina pectoris | + + | Hyperlipidemia, mixed Mixed hyperlipidemia | + + | Hypertension, unspecified type | + + | Syncope, unspecified syncope type | + + | Ascending thoracic aortic aneurysm (HCC) Thoracic aneurysm without mention of rupture | + + documented in this encounter
--- OUTSIDE RECORDS SUMMARY | ~2020-04-15 | XMS | Encounter Summary ---
Demographics + + + | Address | [address] | | | [place] [address] | + + + | Home Phone [...] + +------+ + | Care Field Artillery Basic Name | Role | Phone | [...] [facility] | [place]via, | Symptomatic PVCs | | 2012 | Visit | CARDIOLOGY [address] | [place] [address] | (Primary Dx); CAD; | | | | [place], | [place], | Hyperlipidemia; | | | | [place] [address] | [place] [address] | PACEMAKER, PERMANENT | | | | [phone] | [phone] | - [employer] | | | | [...] for ablation despite large amounts of sedation. hPamaster wynn was scheduled to go back in [...] tablet by mouth Daily. 30 tablet 6 [place]-3 Fatty Acids (SALMON OIL-1000 PO) CAPS, one [...] Reviewed records from PCP and notes from [facility]. Assessment: 1. Symptomatic PVCs [...] to go back in 3 days to [place] for an attempt of ablation under general [...] He is upgraded to class I of [place] Heart Association functional class. There are no [...] made to ensure accuracy; however, inadvertent computerized rail doweling machine operator errors may be pre sent. documented in this encounter Plan of Treatment +--------+ + + + + | Date | Type | Specialty | Care Team | Description | +--------+ + + + + | 05/01/ | Appointment | Radiology | [place]via, | | | 2019 | | | [address] | | | | | | [place], | | | | | | [place] [address] | | | | | | [phone] | | | | | | | | +--------+ + + + + | 05/01/ | Procedure | Cardiology | | | | 2019 | visit | | | | +--------+ + + + + | 05/01/ | Office | Cardiology | [place]via, | | | 2019 | Visit | | [address] | | | | | | [place], | | | | | | [place] [address] | | | | | | [phone] | | | | | | | | +--------+ + + + + | 05/21/ | Implant | Cardiology | Daljit Singletary, | Remote Device | | 2019 | Monitor | | [facility] | Interrogation | | | | | [place], | (Primary Dx); | | | | | [place] [address] | Pacemaker; | | | | | [phone] | Sinoatrial node | | | | [...] Coronary atherosclerosis of unspecified type of vessel, [place] or graft | + + | Hyperlipidemia Other and unspecified hyperlipidemia | + + | PACEMAKER, PERMANENT - [employer] 06/14/09GRANT Cardiac pacemaker in situ | + + documented in this encounter
--- OUTSIDE RECORDS SUMMARY | ~2020-04-15 | XMS | Encounter Summary ---
Demographics + + + | Address | [address] | | | [place] [address] | + + + | Home Phone [...] Providers + +------+ + | Care Manager Sterile Name | Role | Phone | + [...] 2019 | | GASTROENTEROLOGY | [address] [place] | | | | | [address] | [address] [place], [place] | | | | | [address] [place], [place] | [address] | | | | | [address] | | | | | | [phone] | | | +--------+ + + + [...] | | | | | | [place] [address] | | | | | | [phone] | | | | | | | | +--------+ + + + + | 05/01/ | Procedure | Cardiology | | | | 2019 | visit | | | | +--------+ + + + + | 05/01/ | Office | Cardiology | Silvia, | | | 2019 | Visit | | [address] | | | | | | [place], | | | | | | [place] [address] | | | | | | [phone] | | | | | | | | +--------+ + + + + | 05/21/ | Implant | Cardiology | Daljit Singletary, | Remote Device | 2019 | Monitor | | [address] | Interrogation | | | | | [place], | (Primary Dx); | | | | | [place] [address] | Pacemaker; | | | | | [phone] | Sinoatrial node | | | | | | dysfunction (HCC) | | | | | | with symptomatic | | | | | | bradycardia | +--------+ + + + + documented as of this encounter Visit Diagnoses Not on filedocumented in this encounter"
--- OUTSIDE RECORDS SUMMARY | ~2020-04-15 | XMS | Encounter Summary ---
Demographics + + + | Address | [address] | | | [place] [address] | + + + | Home Phone [...] Providers + +------+ + | Care Account Technician Name | Role | Phone [...] | | | | [place] | | [address] Phone: | | | | | CYSTO/URETER | | [phone] | | | | | O | | Fax: | | | | | W/LITHOTRIPS | | [phone] | | | | | Y &INDWELL [...] | 04/13/ | Surgery | [facility] | Matthew Uriarte | Cystoscopy, Left | | 2018 | | MED CTR OR INTRA OP | Dahl, MD [address] | ureteroscopy with | | | | [address] | [place] | laser lithotripsy, | | | | [place] | [address] | Left ureteral stent | | | | [address] | | placement | | | | [phone] | | | +--------+---------+ + + + [...] Care Everywhere.Kidney Stones, Treating: Ureteroscopic Stone Removal (Kyrgyz)Stents, Ureteral (Kyrgyz)documented in this encounter Medications at Time of [...] + + + +---------+ + + | [place]-3 Fatty | CAPS, one capsule by [...] | | | | | | | ho-chunk coronary | | | | | | | artery of ho-chunk | | | | | | | [...] | | | | | | [place] [address] | | | | | | [phone] | | | | | | | | +--------+ + + + + | 05/01/ | Procedure | Cardiology | | | | 2019 | visit | | | | +--------+ + + + + | 05/01/ | Office | Cardiology | Silvia, | | | 2019 | Visit | | [address] | | | | | | [place], | | | | | | [place] [address] | | | | | | [phone] | | | | | | | | +--------+ + + + + | 05/21/ | Implant | Cardiology | Daljit Singletary, | Remote Device | 2019 | Monitor | | [address] | Interrogation | | | | | [place], | (Primary Dx); | | | | | [place] [address] | Pacemaker; | | | | | [phone] | Sinoatrial node | | | | [...] [facility] | | | | | | at:[phone]. | | | | + + + [...] + + | Performed at: 01 - [facility] [address] [facility], | REFERENCE LAB | | [place], [place] [address] Administrative Services Officer: Yeny Rios MD, Phone: | ARSH CASTANON | | [phone] | | + + + + + + + + | Performing | Address | City/State/Zipcode | Phone Number | | Organization | | | | + + + + + | REFERENCE LAB | [address] | [place], [place] | [phone] | | ARSH CASTANON | [facility] | [address] | | + + + + + [...] | + +---------+ + + + | Albumin/Snadee | 2.1 (H) | 0.8 - 1.9 [...] [address] | [place] | [phone] | | [facility] | | [address] | | | - LABORATORY | | [...] [address] | [place] | [phone] | | [facility] | | [address] | | | - LABORATORY | | [...] [address] | [place] | [phone] | | [facility] | | [address] | | | - LABORATORY | | [...] [address] | [place] | [phone] | | [facility] | | [address] | | | - LABORATORY | | [...] | mL/min/1.73m2 | MICHELLE | | | ANGOLAN | RATE,ESTIMATED | | MEDICAL | | | | mL/min/1.86w9Svpi than | | CENTER - | | [...] [address] | [place] | [phone] | | [facility] | | [address] | | | - LABORATORY | | [...] day), First | | | dose on [facility] 04/13/19 at 1400, | | | Start 8 hours after pre-op dose., | | | Post-op/Phase II | | + +---+ | | | + +---+ | albuterol 2.5 mg/3 mL nebulizer | | | solution 2.5 mg 2.5 mg, | | | Nebulization, ONCE PRN, Wheezing, | | | Starting [facility] 04/13/19 at 0917, | | | For [...] HR < 40, | | | Starting [facility] 04/13/19 at 0917, For | | | [...] | | | | | | | fylshw-cmw-gcbjl use of at least | | | [...] day), | | | First dose on [facility] 04/13/19 at | | | 2030, If [...] | | | | CONTINUOUS, Starting [facility] 04/13/19 | | AM PDT | | | | | at 0700, TKO., Pre-op | | | | | | + +---------+ +---+---+---+ + +---+ | | | + +---+ | midazolam (VERSED) 1 mg/mL | | | injection 0.5-2 mg 0.5-2 mg, | | | Intravenous, EVERY 5 MIN PRN, | | | Anxiety, or agitation, Starting | | | [facility] 04/13/19 at 0917, Maximum | | | [...]
--- OUTSIDE RECORDS SUMMARY | ~2020-04-15 | XMS | Encounter Summary ---
Demographics + + + | Address | [address] | | | [place] [address] | + + + | Home Phone [...] + +------+ + | Care Auto Damage Appraiser Name | Role | Phone | + +------+ + PCP | Unavailable | + +------+ + Encounter Details +--------+ + + + + | Date | Type | Department | Care Team | Description | +--------+ + + + + | 09/08/ | [facility] | [facility] | Naresh Mckeon | | | 1998 | Encounter | MED CTR SLEEP | MD Chaya [address] | | | | | CENTER [address] | [place] | | | | | [place] | [place] [address] | | | | | [address] | [phone] | | | | | [phone] | | | +--------+ + + + [...] W | | | | | | [place], | | | | | | [place] [address] | | | | | | [phone] | | | | | | | | +--------+ + + + + | 05/01/ | Procedure | Cardiology | | | | 2019 | visit | | | | +--------+ + + + + | 05/01/ | Office | Cardiology | Silvia | | | 2019 | Visit | | [address] | | | | | | [place], | | | | | | [place] [address] | | | | | | [phone] | | | | | | | | +--------+ + + + + | 05/21/ | Implant | Cardiology | Daljit Singletary, | Remote Device | 2019 | Monitor | | MD [address] [place] | Interrogation | | | | | [place], | (Primary Dx); | | | | | [place] [address] | Pacemaker; | | | | | [phone] | Sinoatrial node | | | | | | dysfunction (HCC) | | | | | | with symptomatic | | | | | | bradycardia | +--------+ + + + + documented as of this encounter Visit Diagnoses Not on filedocumented in this encounter"
--- OUTSIDE RECORDS SUMMARY | ~2020-04-15 | XMS | Encounter Summary ---
Demographics + + + | Address | [address] | | | [place] [address] | + + + | Home Phone [...] Providers + +------+ + | Care Physician Assistant Primary Care Name | Role | Phone | [...] + | 10/04/ | Telephone | [facility] | Daljit Singletary, | Other (Records sent) | | 2012 | | CARDIOLOGY [address] | MD [address] | | | | | [place], | [place], | | | | | [place] [address] | [place] [address] | | | | | [phone] | [phone] | | | | | | | [...] W | | | | | | [place], | | | | | | [place] [address] | | | | | | [phone] | | | | | | | | +--------+ + + + + | 05/01/ | Procedure | Cardiology | | | | 2019 | visit | | | | +--------+ + + + + | 05/01/ | Office | Cardiology | Silvia, | | | 2019 | Visit | | [address] | | | | | | [place], | | | | | | [place] [address] | | | | | | [phone] | | | | | | | | +--------+ + + + + | 05/21/ | Implant | Cardiology | Daljit Singletary, | Remote Device | | 2019 | Monitor | | [address] | Interrogation | | | | | [place], | (Primary Dx); | | | | | [place] [address] | Pacemaker; | | | | | [phone] | Sinoatrial node | | | | | | dysfunction (HCC) | | | | | | with symptomatic | | | | | | bradycardia | +--------+ + + + + documented as of this encounter Visit Diagnoses Not on filedocumented in this encounter"
--- OUTSIDE RECORDS SUMMARY | ~2020-04-15 | XMS | Encounter Summary ---
Demographics + + + | Address | [address] | | | [place] [address] | + + + | Home Phone [...] Team Providers + +------+ + | Care Conduit Helper Name | Role | Phone | [...] [address] | | | | | [place], | [place], | | | | | [place] [address] | [place] [address] | | | | | [phone] | [phone] | | | | | | | [...] W | | | | | | [place], | | | | | | [place] [address] | | | | | | [phone] | | | | | | | | +--------+ + + + + | 05/01/ | Procedure | Cardiology | | | | 2019 | visit | | | | +--------+ + + + + | 05/01/ | Office | Cardiology | Silvia, | | | 2019 | Visit | | [address] | | | | | | [place], | | | | | | [place] [address] | | | | | | [phone] | | | | | | | | +--------+ + + + + | 05/21/ | Implant | Cardiology | Daljit Singletary, | Remote Device | | 2019 | Monitor | | [address] [place] | Interrogation | | | | | [address] [place], | (Primary Dx); | | | | | [place] [address] | Pacemaker; | | | | | [phone] | Sinoatrial node | | | | | | dysfunction (HCC) | | | | | | with symptomatic | | | | | | bradycardia | +--------+ + + + + documented as of this encounter Visit Diagnoses Not on filedocumented in this encounter"
--- OUTSIDE RECORDS SUMMARY | ~2020-04-15 | XMS | Encounter Summary ---
Demographics + + + | Address | [address] | | | [place] [address] | + + + | Home Phone [...] Team Providers + +------+ + | Care Rickshaw Driver Name | Role | Phone | [...] | RN | | | | | [place], | | | | | | [place] [address] | | | | | | [phone] | | | +--------+ + + + [...] | | | | | | [place] [address] | | | | | | [phone] | | | | | | | [...] | | | | | | [place] [address] | | | | | | [phone] | | | | | | | | +--------+ + + + + | 05/21/ | Implant | Cardiology | Daljit Singletary, | Remote Device | | 2019 | Monitor | | MD Sim [place] | Interrogation | | | | | [place], | (Primary Dx); | | | | | [place] [address] | Pacemaker; | | | | | [phone] | Sinoatrial node | | | | | | dysfunction (HCC) | | | | | | with symptomatic | | | | | | bradycardia | +--------+ + + + + documented as of this encounter Visit Diagnoses Not on filedocumented in this encounter"
--- OUTSIDE RECORDS SUMMARY | ~2020-04-15 | XMS | Encounter Summary ---
Demographics + + + | Address | [address] | | | [place] [address] | + + + | Home Phone [...] Providers + +------+ + | Care Supervisor Liquid Yeast Name | Role | Phone | + [...] | CARDIOLOGY [address] | MD [address] [place] | | | | | [place], | [place], | | | | | [place] [address] | [place] [address] | | | | | [phone] | | | | | | | [...] W | | | | | | [place], | | | | | | [place] [address] | | | | | | [phone] | | | | | | | | +--------+ + + + + | 05/01/ | Procedure | Cardiology | | | | 2019 | visit | | | | +--------+ + + + + | 05/01/ | Office | Cardiology | Silvia, | | | 2019 | Visit | | [address] | | | | | | [place], | | | | | | [place] [address] | | | | | | [phone] | | | | | | | | +--------+ + + + + | 05/21/ | Implant | Cardiology | Daljit Singletary, | Remote Device | | 2019 | Monitor | | [address] | Interrogation | | | | | [place], | (Primary Dx); | | | | | [place] [address] | Pacemaker; | | | | | [phone] | Sinoatrial node | | | | | | dysfunction (HCC) | | | | | | with symptomatic | | | | | | bradycardia | +--------+ + + + + documented as of this encounter Visit Diagnoses Not on filedocumented in this encounter"
--- OUTSIDE RECORDS SUMMARY | ~2020-04-15 | XMS | Encounter Summary ---
Demographics + + + | Address | [address] | | | [place] [address] | + + + | Home Phone [...] Providers + +------+ + | Care Instructor Tap Dancing Name | Role | Phone | + +------+ + PCP | Unavailable | + +------+ + Encounter Details +--------+ + + + + | Date | Type | Department | Care Team | Description | +--------+ + + + + | 04/23/ | Hospital | [facility] | | | | 2007 - | Encounter | MED CTR MED ONC | | | | | | [address] | | | | 04/24/ | | [place] [address] | | | | 2007 | | [phone] | | | +--------+ + + + [...] | | | | | | [place] [address] | | | | | | [phone] | | | | | | | | +--------+ + + + + | 05/01/ | Procedure | Cardiology | | | | 2019 | visit | | | | +--------+ + + + + | 05/01/ | Office | Cardiology | Silvia, | | | 2019 | Visit | | [address] | | | | | | [place], | | | | | | [place] [address] | | | | | | [phone] | | | | | | | | +--------+ + + + + | 05/21/ | Implant | Cardiology | Daljit Singletary, | Remote Device | 2019 | Monitor | | [address] [place] | Interrogation | | | | | [place], | (Primary Dx); | | | | | [place] [address] | Pacemaker; | | | | | [phone] | Sinoatrial node | | | | | | dysfunction (HCC) | | | | | | with symptomatic | | | | | | bradycardia | +--------+ + + + + documented as of this encounter Visit Diagnoses Not on filedocumented in this encounter"
--- OUTSIDE RECORDS SUMMARY | ~2020-04-15 | XMS | Encounter Summary ---
Demographics + + + | Address | [address] | | | [place] [address] | + + + | Home Phone [...] Team Providers + +------+ + | Care Shaft Headman Name | Role | Phone | + [...] 2019 | | GASTROENTEROLOGY | MD [address] | | | | | [address] | [place]. [place] | | | | | [address] [place] | [place] [address] | | | | | [address] | | | | | | [phone] | | | +--------+ + + + [...] W | | | | | | [place], | | | | | | [place] [address] | | | | | | [phone] | | | | | | | | +--------+ + + + + | 05/01/ | Procedure | Cardiology | | | | 2019 | visit | | | | +--------+ + + + + | 05/01/ | Office | Cardiology | Silvia, | | | 2019 | Visit | | [address] | | | | | | [place], | | | | | | [place] [address] | | | | | | [phone] | | | | | | | | +--------+ + + + + | 06/30/ | Implant | Cardiology | Daljit Singletary, | Remote Device | | 2019 | Monitor | | [facility] | Interrogation | | | | | [address] [place], | (Primary Dx); | | | | | [place] [address] | Pacemaker; | | | | | [phone] | Sinoatrial node | | | | | | dysfunction (HCC) | | | | | | with symptomatic | | | | | | bradycardia | +--------+ + + + + documented as of this encounter Visit Diagnoses Not on filedocumented in this encounter"
--- OUTSIDE RECORDS SUMMARY | ~2020-04-15 | XMS | Encounter Summary ---
Demographics + + + | Address | [address] | | | [place] [address] | + + + | Home Phone [...] Providers + +------+ + | Care Auto Bench Mechanic Name | Role | Phone [...] W | question) | | | | [place], | [place], | | | | | [place] [address] | [place] [address] | | | | | [phone] | [phone] | | | | | | | [...] | | | | | | [place] [address] | | | | | | [phone] | | | | | | | | +--------+ + + + + | 05/01/ | Procedure | Cardiology | | | | 2019 | visit | | | | +--------+ + + + + | 05/01/ | Office | Cardiology | Silvia, | | | 2019 | Visit | | [address] | | | | | | [place], | | | | | | [place] [address] | | | | | | [phone] | | | | | | | | +--------+ + + + + | 05/21/ | Implant | Cardiology | Daljit Singletary, | Remote Device | | 2019 | Monitor | | [address] [place] | Interrogation | | | | | [place], | (Primary Dx); | | | | | [place] [address] | Pacemaker; | | | | | [phone] | Sinoatrial node | | | | | | dysfunction ([facility]) | | | | | | with symptomatic | | | | | | bradycardia | +--------+ + + + + documented as of this encounter Visit Diagnoses Not on filedocumented in this encounter"
--- OUTSIDE RECORDS SUMMARY | ~2020-04-15 | XMS | Encounter Summary ---
Demographics + + + | Address | [address] | | | [place] [address] | + + + | Home Phone [...] + +------+ + | Care A P Mechanic Name | Role | Phone | + +------+ + PCP | Unavailable | + +------+ + Encounter Details +--------+ + + + + | Date | Type | Department | Care Team | Description | +--------+ + + + + | 11/14/ | [facility] | [facility] | William Hirsch | | | 1999 | Encounter | MED CTR EMERGENCY | MD Cristobal [address] | | | | | CENTER [address] [place] | [address] [place] | | | | | [place] | [place] [address] | | | | | [address] | [phone] | | | | | [phone] | | | +--------+ + + + [...] W | | | | | | [place], | | | | | | [place] [address] | | | | | | [phone] | | | | | | | | +--------+ + + + + | 05/01/ | Procedure | Cardiology | | | | 2019 | visit | | | | +--------+ + + + + | 05/01/ | Office | Cardiology | Silvia, | | | 2019 | Visit | | [address] | | | | | | [place], | | | | | | [place] [address] | | | | | | [phone] | | | | | | | | +--------+ + + + + | 05/21/ | Implant | Cardiology | Daljit Singletary, | Remote Device | | 2019 | Monitor | | MD [address] [place] | Interrogation | | | | | [place], | (Primary Dx); | | | | | [place] [address] | Pacemaker; | | | | | [phone] | Sinoatrial node | | | | | | dysfunction (HCC) | | | | | | with symptomatic | | | | | | bradycardia | +--------+ + + + + documented as of this encounter Visit Diagnoses Not on filedocumented in this encounter"
--- OUTSIDE RECORDS SUMMARY | ~2020-04-15 | XMS | Encounter Summary ---
Demographics + + + | Address | [address] [place] [address] [address] | | | [place] [address] | + + + | Home Phone [...] + + + | Author | [facility] | + + + | Organization | [facility] | + + + | Address | Unknown | + + + | Phone | Unavailable | + + + Support + + + + + | Name | Relationship | Address | Phone | + + + + + | Rachel Valencia | ELIEZER | [place] | | | | | [address] | | + + + + + Care Team Providers + +------+ + | Care Linux Security Administrator Name | Role | Phone [...] | | 2019 | | Center at [facility] [address] | MD [address] | | | | | [address] | [place], [place] | | | | | Mailcode: [place] | [address] | | | | | [facility] and | [phone] | | | | | [place] [address] | | | | | | [place], [place] | | | | | | [address] | | | | | | [phone] | | | +--------+ + + + [...]
--- OUTSIDE RECORDS SUMMARY | ~2020-04-15 | XMS | Encounter Summary ---
Demographics + + + | Address | [address] | | | [place] [address] | + + + | Home Phone [...] Team Providers + +------+ + | Care Parole Hearing Officer Name | Role | Phone [...] | Telephone | [facility] | Sivlia, | Referral | | 2013 | | CARDIOLOGY [address] | Janeen EXTRAS CASTING DIRECTOR [address] | | | | | [place], | [place], | | | | | [place] [address] | [place] [address] | | | | | [phone] | [phone] | | | | | | | [...] | | | | | | [place], | | | | | | [place] [address] | | | | | | [phone] | | | | | | | | +--------+ + + + + | 05/01/ | Procedure | Cardiology | | | | 2019 | visit | | | | +--------+ + + + + | 05/01/ | Office | Cardiology | Silvia, | | | 2019 | Visit | | PARISA Vernon [address] | | | | | | [place], | | | | | | [place] [address] | | | | | | [phone] | | | | | | | | +--------+ + + + + | 05/21/ | Implant | Cardiology | Daljit Singletary, | Remote Device | 2019 | Monitor | | MD [address]is [address] | Interrogation | | | | | [place], | (Primary Dx); | | | | | [place] [address] | Pacemaker; | | | | | [phone] | Sinoatrial node | | | | | | dysfunction (HCC) | | | | | | with symptomatic | | | | | | bradycardia | +--------+ + + + + documented as of this encounter Visit Diagnoses Not on filedocumented in this encounter"
--- OUTSIDE RECORDS SUMMARY | ~2020-04-15 | XMS | Encounter Summary ---
Demographics + + + | Address | [address] | | | [place] [address] | + + + | Home Phone [...] Providers + +------+ + | Care Computer Consultant Name | Role | Phone | [...] | | CARDIOLOGY [address] | [address] | | | | | [place], | [place], | | | | | [place] [address] | [place] [address] | | | | | [phone] | [phone] | | | | | | | [...] | | | | | | [place] [address] | | | | | | [phone] | | | | | | | | +--------+ + + + + | 05/01/ | Procedure | Cardiology | | | | 2019 | visit | | | | +--------+ + + + + | 05/01/ | Office | Cardiology | Silvia, | | | 2019 | Visit | | PARISA Vernon W | | | | | | [place], | | | | | | [place] [address] | | | | | | [phone] | | | | | | | | +--------+ + + + + | 05/21/ | Implant | Cardiology | Daljit Singletary, | Remote Device | | 2019 | Monitor | | MD [address] [place] | Interrogation | | | | | [place], | (Primary Dx); | | | | | [place] [address] | Pacemaker; | | | | | [phone] | Sinoatrial node | | | | [...] [address] | [place] | [phone] | | [facility] | | [address] | | | - LABORATORY | | | | + + + + + | [address] | [address] | [place] | | | [facility] | | [address], [facility] | | | - LABORATORY [...] | | | | | [facility] | | | | | - LABORATORY | | | | + +---------+ + + documented in this encounter Visit Diagnoses Not on filedocumented in this encounter"
--- OUTSIDE RECORDS SUMMARY | ~2020-04-15 | XMS | Encounter Summary ---
Demographics + + + | Address | [address] | | | [place] [address] | + + + | Home Phone [...] [address] | | | | | [place], | [place], | | | | | [place] [address] | [place] [address] | | | | | [phone] | [phone] | | | | | | | [...] W | | | | | | [place], | | | | | | [place] [address] | | | | | | [phone] | | | | | | | | +--------+ + + + + | 05/01/ | Procedure | Cardiology | | | | 2019 | visit | | | | +--------+ + + + + | 05/01/ | Office | Cardiology | Silvia, | | | 2019 | Visit | | PARISA Vernon W | | | | | | [place], | | | | | | [place] [address] | | | | | | [phone] | | | | | | | | +--------+ + + + + | 05/21/ | Implant | Cardiology | Daljit Singletary, | Remote Device | 2019 | Monitor | | MD [address] [place] | Interrogation | | | | | [place], | (Primary Dx); | | | | | [place] [address] | Pacemaker; | | | | | [phone] | Sinoatrial node | | | | | | dysfunction (HCC) | | | | | | with symptomatic | | | | | | bradycardia | +--------+ + + + + documented as of this encounter Visit Diagnoses Not on filedocumented in this encounter"
--- OUTSIDE RECORDS SUMMARY | ~2020-04-15 | XMS | Encounter Summary ---
Demographics + + + | Address | [address] | | | [place] [address] | + + + | Home Phone [...] Providers + +------+ + | Care Bill Hiker Name | Role | Phone | + [...] | | Ascending | [place] | [address] [place] | | | | | aortic | Janeen, INTERNATIONAL SALES REPRESENTATIVE | [place], | | | | | aneurysm | [address] | [place] [address] | | | | | (HCC) | [place] | Phone: | | | | | Abdominal | [place], | [phone] | | | | | aortic | [place] | Fax: | | | | | aneurysm | [address] | [phone] | | | | | (AAA) | Phone: | | | | | | without | [phone] | | | | | | rupture | Fax: | | | | | | (HCC) | [phone] | | | | | | Procedures [...] | unspecified | MD Martell | [address] | | | | | type ER | [address] | [place] [address] | | | | | FUP | [place] | [place], | | | | | Procedures | [place], [place] | [place] [address] | | | | | FUP - SUW & | [address] | Phone: | | | | | MISHA PT, LAST | Phone: | [phone] | | | | | SEEN | [phone] | Fax: | | | | | 08-24-18 | Fax: | [phone] | | | | | | [phone] | | +--------+ + + + + + Encounter Details +--------+---------+ + + + | Date | Type | Department | Care Team | Description | +--------+---------+ + + + | 01/11/ | Office | [facility] | [place], | Coronary artery | | 2019 | Visit | CARDIOLOGY [address] | PARISA Vernon [address] | disease involving | | | | [place], | [place], | [place] coronary | | | | [place] [address] | [place] [address] | artery of [place] | | | | [phone] | [phone] | heart without angina | | | [...] encounter Patient Instructions Patient Instructions Christine Rodriguez, Movie Editor - 01/11/2019 12:45 PM PST 1. You [...] Check-in time: 1. Check in at the [facility]. 2. Do not [...] procedure. 6. Make sure you have a truck driver to take you home. Your truck driver will also need to sign [...] hospital line at and ask for nursing price accuracy supervisor t o let them know you are cancelling . Blood test: Non-fasting Date Due: same day as CTA Where to go for labs: [facility]- [facility]. CTA of Chest and Abdomen: Date: [...] 3RD DOSE, CALL 911 100 tablet 3 [place]-3 Fatty Acids (SALMON OIL-1000 PO) CAPS, one capsule by mouth daily twice daily ondansetron (ZOFRAN ODT) 4 mg disintegrating tablet Take 4 mg by mouth. ONE TOUCH DELICA LANCETS [facility] [...] was found Confirmed by HIREN WINKLER, ANGELA ([id number]) on 01/03/2019 8:10:39 PM LAB RESULTS reviewed [...] ASSESSMENT: 1. Non-critical Coronary artery disease involving [place] coronary artery of [place] heart wi thout angina pectoris: A. Normal [...] Health Services on 01/30/2013. Patient had spontaneous PVC's from [...] go back in 3 days t o [place] for an attempt of ablation under [...] permanent pacemaker implantation on 06/14/[address] aDljit masters. C. Last device interrogation shows no [...] if he has any further problems IChristine Movie Editor am acting as a scribe on behalf of, and in the pres ence of PARISA Lomas. - Reji Newman 01/11/2019 13:46 I, PARISA Lomas, personally performed the services described in this documentati on, as scribed in my presence and it is both accurate and complete. -PARISA Lomas 01/11/2019 Portions of this chart may have been created with [email or web address] voice recognition software. Occasi onal wrong-word or [...] | | | | | | [place], | | | | | | [place] [address] | | | | | | [phone] | | | | | | | | +--------+ + + + + | 05/01/ | Procedure | Cardiology | | | | 2019 | visit | | | | +--------+ + + + + | 05/01/ | Office | Cardiology | [place]via, | | | 2019 | Visit | | PARISA Vernon [address] | | | | | | [place], | | | | | | [place] [address] | | | | | | [phone] | | | | | | | | +--------+ + + + + | 05/21/ | Implant | Cardiology | Daljit Singletary, | Remote Device | | 2019 | Monitor | | MD [address] [place] | Interrogation | | | | | [place], | (Primary Dx); | | | | | [place] [address] | Pacemaker; | | | | | [phone] | Sinoatrial node | | | | [...] [place] heart without | | angina pectoris - [...]
--- OUTSIDE RECORDS SUMMARY | ~2020-04-15 | XMS | Encounter Summary ---
Demographics + + + | Address | [address] | | | [place] [address] | + + + | Home Phone [...] Providers + +------+ + | Care Field Health Officer Name | Role | Phone | [...] + | 02/27/ | Telephone | [facility] | [place], | Chest Pain (Patient | | 2013 | | CARDIOLOGY [address] | Janeen, ENAMEL PULVERIZER [address] | having chest pain) | | | | [place], | [place], | | | | | [place] [address] | [place] [address] | | | | | [phone] | [phone] | | | | | | | [...] W | | | | | | [place], | | | | | | [place] [address] | | | | | | [phone] | | | | | | | | +--------+ + + + + | 05/01/ | Procedure | Cardiology | | | | 2019 | visit | | | | +--------+ + + + + | 05/01/ | Office | Cardiology | Silvia, | | | 2019 | Visit | | PARISA Vernon [address] | | | | | | [place], | | | | | | [place] [address] | | | | | | [phone] | | | | | | | | +--------+ + + + + | 05/21/ | Implant | Cardiology | Daljit Singletary, | Remote Device | | 2019 | Monitor | | [address] [facility] | Interrogation | | | | | [place], | (Primary Dx); | | | | | [place] [address] | Pacemaker; | | | | | [phone] | Sinoatrial node | | | | | | dysfunction (HCC) | | | | | | with symptomatic | | | | | | bradycardia | +--------+ + + + + documented as of this encounter Visit Diagnoses Not on filedocumented in this encounter"
--- OUTSIDE RECORDS SUMMARY | ~2020-04-15 | XMS | Encounter Summary ---
Demographics + + + | Address | [address] | | | [place] [address] | + + + | Home Phone [...] | Telephone | [facility] [place] | [place], | Other (not feeling | | 2013 | | [place] [address] | [place] [address] | kendall) | | | | [facility], | [place], | | | | | [place] [address] | [place] [address] | | | | | [phone] | [phone] | | | | | | | [...] W | | | | | | [place], | | | | | | [place] [address] | | | | | | [phone] | | | | | | | | +--------+ + + + + | 05/01/ | Procedure | Cardiology | | | | 2019 | visit | | | | +--------+ + + + + | 05/01/ | Office | Cardiology | Silvia, | | | 2019 | Visit | | [address] W | | | | | | [place], | | | | | | [place] [address] | | | | | | [phone] | | | | | | | | +--------+ + + + + | 05/21/ | Implant | Cardiology | Daljit Singletary, | Remote Device | | 2019 | Monitor | | 401 [facility] | Interrogation | | | | | [place], | (Primary Dx); | | | | | [place] [address] | Pacemaker; | | | | | [phone] | Sinoatrial node | | | | | | dysfunction (HCC) | | | | | | with symptomatic | | | | | | bradycardia | +--------+ + + + + documented as of this encounter Visit Diagnoses Not on filedocumented in this encounter"
--- OUTSIDE RECORDS SUMMARY | ~2020-04-15 | XMS | Encounter Summary ---
Demographics + + + | Address | [address] | | | [place] [address] | + + + | Home Phone [...] Providers + +------+ + | Care Assistant Name | Role | Phone [...] | | | CENTER [address] | [address] | (Primary Dx) | | | | [place], [place] | [place], [place] | | | | | [address] | [address] | | | | | [phone] | | | +--------+ + + + [...] + + + +---------+ + + | Parthenon-3 Fatty | CAPS, one capsule by | [...] | | | | | | [place] [address] | | | | | | [phone] | | | | | | | | +--------+ + + + + | 05/01/ | Procedure | Cardiology | | | | 2019 | visit | | | | +--------+ + + + + | 05/01/ | Office | Cardiology | Silvia, | | | 2019 | Visit | | [address] W | | | | | | [place], | | | | | | [place] [address] | | | | | | [phone] | | | | | | | | +--------+ + + + + | 05/21/ | Implant | Cardiology | Sydni Singletary, | Remote Device | 2019 | Monitor | | 401 [facility] | Interrogation | | | | | [place], | (Primary Dx); | | | | | [place] [address] | Pacemaker; | | | | | [phone] | Sinoatrial node | | | | [...] W?MRN: | | | | | | [id number] | | | [id number] | | | his | | | [...] | | | ent/60 | | | [id number] | | | -5586- | | | [...] | | | St. | | | Turner | | | y | | | [...] | | | ext. | | | [address] | | | or go | | [...] | | | M.D. | | | Bench Grinder | | | al | | | [...] | | | | | | [employer] | | | | | [...] | [facility] | [address] | [place] | [phone] | | [facility] | | [address] | | | - LABORATORY | | [...] | [facility] | [address] | [place] | [phone] | | [facility] | | [address] | | | - LABORATORY | | [...] | + + + + + | [facility] | [address] | [place] | [phone] | | [facility] | | [address] | | | - LABORATORY | | [...] 16 | 7 - 18 mg/dL | [facility] | | | | | | [facility] | | | | | | MEDICAL | | | | | | CENTER - | | | | | | LABORATORY | | + + + + + + | Creatinine | 0.82 | 0.60 - 1.30 | [facility] | | | | | mg/dL | [facility] | | | | | | MEDICAL | | | | | | CENTER - | | | | | | LABORATORY | | + + + + + + | eGFR if not | >60Comment: GLOMERULAR | >=60 | [facility] | | | | FILTRATION | mL/min/1.73m2 | [facility] | | | BANGLADESHI | RATE,ESTIMATED | | MEDICAL | | | | mL/min/1.12w9Osgd than | | CENTER - | | [...] [address] | [place] | [phone] | | [facility] | | [address] | | | - LABORATORY | | [...] [address] | [place] | [phone] | | [facility] | | [address] | | | - LABORATORY | | [...] [address] | [place] | [phone] | | [facility] | | [address] | | | - LABORATORY | | [...] SYDNI | | | | | | ([id number]) on 06/22/2018 | | | | | [...]
--- OUTSIDE RECORDS SUMMARY | ~2020-04-15 | XMS | Encounter Summary ---
Demographics + + + | Address | [address] | | | [place] [address] | + + + | Home Phone [...] Providers + +------+ + | Care Cigarette And Filter Chief Inspector Name | Role | Phone | + +------+ + | Kirk French MD | PCP | | + +------+ + Encounter Details +--------+ + + + + | Date | Type | Department | Care Team | Description | +--------+ + + + + | 12/24/ | [facility] | [facility] | Emmanuel Daniel MD | Pain of upper | | 2018 | Encounter | MED CTR [facility] INTRA OP | [address], [place] | abdomen (Primary | | | | [address] | [address] [place], [place] | Dx); Functional | | | | [place], [place] | [address] | diarrhea; Weight | | | | [address] | | loss | | | | [phone] | | | +--------+ + + + [...] + + + +---------+ + + | [place]-3 Fatty | CAPS, one capsule by [...] | | | | | | [place] [address] | | | | | | [phone] | | | | | | | [...] | | | | | | [place] [address] | | | | | | [phone] | | | | | | | | +--------+ + + + + | 05/21/ | Implant | Cardiology | Daljit Singletary, | Remote Device | | 2019 | Monitor | | MD [address] [facility] | Interrogation | | | | | [place], | (Primary Dx); | | | | | [place] [address] | Pacemaker; | | | | | [phone] | Sinoatrial node | | | | [...] + | Performed at: 01 - [facility] [place] [address], | REFERENCE LAB | | [place], [place] [id number] Marble Polisher Hand: William Andrew MD, Phone: | ARSH - KINA | | [phone] | | + + + + + + + + | Performing | Address | City/State/Zipcode | Phone Number | | Organization | | | | + + + + + | REFERENCE LAB | [address] | [place], [place] | [phone] | | ARSH - KINA | [facility] | [address] | | + + + + + [...] + | [facility] | [address] | [place] | [phone] | | [facility] | | [address] | | | - LABORATORY | | [...] | | | Aeromonas, Plesiomonas, | | [facility] | | | | E. coli O157 or | | MEDICAL | | | | Yersinia isolated. | | CENTER - | | | | | | LABORATORY | | + + + + + + | Culture | 4+ Usual FloraComment: | | [facility] | | | | Consistent with usual | | [facility] | | | | enteric michelle. | [...] [address] | [place] | [phone] | | [facility] | | [address] | | | - LABORATORY | | [...] [address] | [place] | [phone] | | [facility] | | [address] | | | - LABORATORY | | [...] + | Performed at: 01 - [facility] [place] [address], | REFERENCE LAB | | [place], [place] [id number] Marble Polisher Hand: William Andrew MD, Phone: | [facility] | | [phone] | | + + + + + + + + | Performing | Address | City/State/Zipcode | Phone Number | | Organization | | | | + + + + + | REFERENCE LAB | [address] | [place], [place] | [phone] | | [facility] | [facility] | [address] | | + + + + + Lactoferrin, Fecal, Qual (12/24/2017 1:34 PM PST) + + + + + + | Component | Value | Ref Range | Performed | Pathologist | | | | | At | Signature | + + + + + + | Lactoferrin | Negative | Negative | [facility] | | | , Qual | | | [facility] | | | | | | MEDICAL [...] [address] | [place] | [phone] | | [facility] | | [address] | | | - LABORATORY | | [...] + | [facility] | [address] | [place] | [phone] | | [facility] | | [address] | | | - LABORATORY | | [...] [address] | [place] | [phone] | | [facility] | | [address] | | | - LABORATORY | | [...] ST. | [address] | [place], [place] | [phone] | | [facility] | | [address] | | | - LABORATORY | | [...] + | [facility] | [address] | [place], [place] | [phone] | | [facility] | | [address] | | | - LABORATORY | | | | + + + + + EGD (12/24/2017 1:19 PM PST) + + | Specimen | + + | | + + + + -+ | Narrative | Performed At | + + -+ | | [facility] | | GastroenterologyPatient Name: Moe SanchezProcedpasha Date: 12/24/2017 | [facility] | | 1:19 PMMRN: [id number] #: [id number] of : | | | 9Admit Type: AmbulatoryAge: 57Room: [facility] 01Gender: MaleNote | | | Status: FinalizedAttending MD: Emmanuel Daniel , MDProcedure: | | | Upper GI endoscopyIndications: Diarrhea, Weight | | | lossProviders: Emmanuel Daniel MD, Maria Isabel Morris RN, | | | Kim Hicks, Route Carrier, Irving | | | Sapna Barakat MD (Anesthesia [...] the anesthesiologist and | | | the fuel technician in the endoscopy suite. Mental Status [...] PMScope Out: 1:31:13 PM | | | [facility], [address] [place] [address] | | | [place] [address] | | | - Discharge patient to [...] |Scope Out: 1:31:13 PM | | | [facility], [address] [place] [address] | | | [address] | | + + -+ + +---------+ [...] 12/24/2017 | [facility] | | 1:17 PMMRN: [id number] #: [id number] of : | | | 9Admit Type: AmbulatoryAge: 57Room: [facility] 01Gender: MaleNote | | | Status: FinalizedAttending MD: Emmanuel Daniel MDProcedure: | | | ColonoscopyIndications: Clinically significant diarrhea of | | | unexplained originProviders: Emmanuel Daniel MD, Maria Isabel | | | Arturo RN, Kim Hicks, Route Carrier, | | | Jarett Barakat MD (Anesthesia [...] | | | the anesthesiologist and the fuel technician in the endoscopy suite. | | [...] 1:32:55 PMScope Out: 1:48:[address] [facility] | | | [facility], [address] [place] [address] | | | [phone] | | | - Await pathology results. [...] |Scope Out: 1:48:57 PM | | | [facility], [address] [place] [address] | | | [address] | | + + -+ + +---------+ [...] | colonic mucosa with focal adenomatous change. CLR:[facility]:C2NR | | | GROSS DESCRIPTION: Received in four parts. A. Received in | | | formalin labeled "Moe Pierron, A." and labeled "duodenal bx" on | | | the requisition are six pink-lin tissue fragments measuring from | | | 0.3-0.8 cm submitted, all in (A1). B. Received in formalin labeled | | | "Moe Pierron, C." and labeled "B, left colon bx" on the | | | requisition are five pink-lin tissue fragments measuring from 0.2-09.9 | | | cm, submitted, all in (B1). C. Received in formalin labeled | | | "Moe Pierron, D." and labeled "C, bx TI" on [...] | | cm, submitted, all in (D1). ka:CLR:[facility] ADDITIONAL NOTES: | | | Immunohistochemical studies were performed on this case with the | | | appropriate positive controls that react as expected. This test was | | | developed and its performance characteristics determined by [facility] | | | [facility]. It has not been cleared or approved by the U.S. Food | | | and Drug Administration. The FDA has determined that such clearance | | | or approval is not necessary. This test is used for clinical | | | purposes. It should not be regarded as investigational or for | | | research. [facility] is certified under the Clinical | | | Laboratory Improvement Amendments of 1988 (CLIA) as qualified to | | | perform high complexity clinical laboratory testing. This assay | | | has not been validated for specimens that have been decalcified. | | | PERFORMING LABORATORY: Tissue processing and slide preparation were | | | performed by [facility], [address], [facility] | | | [place] [address] (Director Of Managed Care: Evan Frausto M.D. IA#: | | | [id number]). Professional interpretation was performed by [facility] | | | [facility], [address], [place] [address] | | | (Director Of Managed Care: Evan Frausto M.D.; IA#: [id number]). | | | Diagnostician: Rafael Bales MD [...]
--- OUTSIDE RECORDS SUMMARY | ~2020-04-15 | XMS | Encounter Summary ---
Demographics + + + | Address | [address] | | | [place] [address] | + + + | Home Phone [...] Team Providers + +------+ + | Care Rabbit Fancier Name | Role | Phone | + [...] | | | Diarrhea/ | [address] | [place], [place] | | | | | Rectal | [place] | [address] | | | | | Bleeding | [address] | Phone: | | | | | from [facility] | Phone: | [phone] | | | | | referral. | [phone] | Fax: | | | | | | Fax: | [phone] | | | | | | [phone] | | + + + + + [...] + + | 01/21/ | Telephone | [facility] | Kirk French | Other (wanted to let | | 2019 | | [facility] | MD Brea [address] | us know the St. | | | | [facility] [address] | Apolonia'gena cancelled his | | | | [address] | [place] [address] | appointment for a | | | | [place], [place] | [phone] | colonoscopy) | | | | [address] | | | | | | [phone] | | | +--------+ + + + [...] | | | | | | [place] [address] | | | | | | [phone] | | | | | | | | +--------+ + + + + | 05/01/ | Procedure | Cardiology | | | | 2019 | visit | | | | +--------+ + + + + | 05/01/ | Office | Cardiology | Silvia, | | | 2019 | Visit | | [address] | | | | | | [place], | | | | | | [place] [address] | | | | | | [phone] | | | | | | | | +--------+ + + + + | 05/21/ | Implant | Cardiology | Daljit Singletary, | Remote Device | | 2019 | Monitor | | MD [address] [place] | Interrogation | | | | | [place], | (Primary Dx); | | | | | [place] [address] | Pacemaker; | | | | | [phone] | Sinoatrial node | | | | [...]
--- OUTSIDE RECORDS SUMMARY | ~2020-04-15 | XMS | Encounter Summary ---
Demographics + + + | Address | [address] | | | [place] [address] | + + + | Home Phone [...] Providers + +------+ + | Care Principal Technical Specialist Name | Role | Phone [...] + | 08/19/ | Telephone | [facility] | [place], | Other (patient | | 2016 | | CARDIOLOGY [address] | [place] [address] | having issues with | | | | [place], | [place], | high blood pressure) | | | | [place] [address] | [place] [address] | | | | | [phone] | [phone] | | | | | | | [...] | | | | | | [place] [address] | | | | | | [phone] | | | | | | | | +--------+ + + + + | 05/01/ | Procedure | Cardiology | | | | 2019 | visit | | | | +--------+ + + + + | 05/01/ | Office | Cardiology | Silvia, | | | 2019 | Visit | | [place] W | | | | | | [place], | | | | | | [place] [address] | | | | | | [phone] | | | | | | | | +--------+ + + + + | 05/21/ | Implant | Cardiology | Daljit Singletary, | Remote Device | 2019 | Monitor | | [address] | Interrogation | | | | | [place], | (Primary Dx); | | | | | [place] [address] | Pacemaker; | | | | | [phone] | Sinoatrial node | | | | | | dysfunction (HCC) | | | | | | with symptomatic | | | | | | bradycardia | +--------+ + + + + documented as of this encounter Visit Diagnoses Not on filedocumented in this encounter"
--- OUTSIDE RECORDS SUMMARY | ~2020-04-15 | XMS | Encounter Summary ---
Demographics + + + | Address | [address] | | | [place] [address] | + + + | Home Phone [...] Team Providers + +------+ + | Care Airveyor Operator Name | Role | Phone | [...] Refill | | 2013 | | [facility] | DO [address] | | | | | [address] | [place] | | | | | [place] | [address] | | | | | [address] | | | | | | [phone] | | | +--------+--------+ + + + [...] W | | | | | | [place], | | | | | | [place] [address] | | | | | | [phone] | | | | | | | | +--------+ + + + + | 05/01/ | Procedure | Cardiology | | | | 2019 | visit | | | | +--------+ + + + + | 05/01/ | Office | Cardiology | Silvia, | | | 2019 | Visit | | [place] [address] | | | | | | [place], | | | | | | [place] [address] | | | | | | [phone] | | | | | | | | +--------+ + + + + | 05/21/ | Implant | Cardiology | Daljit Singletary, | Remote Device | | 2019 | Monitor | | [facility] | Interrogation | | | | | [place] [place], | (Primary Dx); | | | | | [place] [address] | Pacemaker; | | | | | [phone] | Sinoatrial node | | | | | | dysfunction (HCC) | | | | | | with symptomatic | | | | | | bradycardia | +--------+ + + + + documented as of this encounter Visit Diagnoses Not on filedocumented in this encounter"
--- OUTSIDE RECORDS SUMMARY | ~2020-04-15 | XMS | Encounter Summary ---
Demographics + + + | Address | [address] | | | [place] [address] | + + + | Home Phone [...] Team Providers + +------+ + | Care Bag Making Machine Operator Name | Role | [...] + | 01/24/ | Telephone | [facility] | Daljit Singletary, | Other | | 2019 | | CARDIOLOGY [address] | MD [address] [place] | | | | | [place], | [place], | | | | | [place] [address] | [place] [address] | | | | | [phone] | [phone] | | | | | | | [...] | | | | | | [place], | | | | | | [place] [address] | | | | | | [phone] | | | | | | | | +--------+ + + + + | 05/01/ | Procedure | Cardiology | | | | 2019 | visit | | | | +--------+ + + + + | 05/01/ | Office | Cardiology | Silvia, | | | 2019 | Visit | | [place] W | | | | | | [place], | | | | | | [place] [address] | | | | | | [phone] | | | | | | | | +--------+ + + + + | 05/21/ | Implant | Cardiology | Daljit Singletary, | Remote Device | | 2019 | Monitor | | [facility] | Interrogation | | | | | [place], | (Primary Dx); | | | | | [place] [address] | Pacemaker; | | | | | [phone] | Sinoatrial node | | | | | | dysfunction (HCC) | | | | | | with symptomatic | | | | | | bradycardia | +--------+ + + + + documented as of this encounter Visit Diagnoses Not on filedocumented in this encounter"
--- OUTSIDE RECORDS SUMMARY | ~2020-04-15 | XMS | Encounter Summary ---
Demographics + + + | Address | [address] | | | [place] [address] | + + + | Home Phone [...] Providers + +------+ + | Care Feed Handler Name | Role | Phone | [...] | CARDIOLOGY [address] | [address] | reprogramming/check | | | | [place], | [place], | DO NOT DELETE | | | | [place] [address] | [place] [address] | (Primary Dx); | | | | [phone] | [phone] | Sinoatrial node | | | | [...] | | | | | | [place] [address] | | | | | | [phone] | | | | | | | | +--------+ + + + + | 05/01/ | Procedure | Cardiology | | | | 2019 | visit | | | | +--------+ + + + + | 05/01/ | Office | Cardiology | Silvia | | | 2019 | Visit | | PARISA Vernon [address] | | | | | | [place], | | | | | | [place] [address] | | | | | | [phone] | | | | | | | | +--------+ + + + + | 05/21/ | Implant | Cardiology | Daljit Singletary, | Remote Device | | 2019 | Monitor | | [address] | Interrogation | | | | | [place], | (Primary Dx); | | | | | [place] [address] | Pacemaker; | | | | | [phone] | Sinoatrial node | | | | [...]
--- OUTSIDE RECORDS SUMMARY | ~2020-04-15 | XMS | Encounter Summary ---
Demographics + + + | Address | [address] | | | [place] [address] | + + + | Home Phone [...] Providers + +------+ + | Care Air Analysis Engineering Technician Name | Role | Phone [...] Medication Refill | | 2018 | | [facility] | MD Bre[address] | | | | | [facility] | [address] | | | | | [address] | [place] [address] | | | | | [place], [place] | [phone] | | | | | [address] | | | | | | [phone] | | | +--------+--------+ + + + [...] | | | | | | [place] [address] | | | | | | [phone] | | | | | | | [...] | | | | | | [place] [address] | | | | | | [phone] | | | | | | | | +--------+ + + + + | 05/21/ | Implant | Cardiology | Daljti Singletary, | Remote Device | | 2019 | Monitor | | [facility] | Interrogation | | | | | [place], | (Primary Dx); | | | | | [place] [address] | Pacemaker; | | | | | [phone] | Sinoatrial node | | | | | | dysfunction (HCC) | | | | | | with symptomatic | | | | | | bradycardia | +--------+ + + + + documented as of this encounter Visit Diagnoses Not on filedocumented in this encounter"
--- OUTSIDE RECORDS SUMMARY | ~2020-04-15 | XMS | Encounter Summary ---
Demographics + + + | Address | [address] | | | [place] [address] | + + + | Home Phone [...] Providers + +------+ + | Care Manager Beauty Name | Role | Phone | + [...] Refill | | 2011 | | [facility] | DO [address] | | | | | [address] | [place] | | | | | [place] | [address] | | | | | [address] | | | | | | [phone] | | | +--------+--------+ + + + [...] | | | | | | [place] [address] | | | | | | [phone] | | | | | | | [...] | | | | | | [place] [address] | | | | | | [phone] | | | | | | | | +--------+ + + + + | 05/21/ | Implant | Cardiology | Daljit Singletary, | Remote Device | 2019 | Monitor | | [address] | Interrogation | | | | | [place], | (Primary Dx); | | | | | [place] [address] | Pacemaker; | | | | | [phone] | Sinoatrial node | | | | [...]
--- OUTSIDE RECORDS SUMMARY | ~2020-04-15 | XMS | Encounter Summary ---
Demographics + + + | Address | [address] | | | [place] [address] | + + + | Home Phone [...] Team Providers + +------+ + | Care Prosthetic Lab Technician Name | Role | Phone [...] | | | | CENTER [address] | [place], [place] | (Primary Dx) | | | | [place], [place] | [address] | | | | | [address] | | | | | | [phone] | | | +--------+ + + + [...] + + + +---------+ + + | [place]-3 Fatty | CAPS, one capsule by | [...] | | | | | | [place], | | | | | | [place] [address] | | | | | | [phone] | | | | | | | | +--------+ + + + + | 05/01/ | Procedure | Cardiology | | | | 2019 | visit | | | | +--------+ + + + + | 05/01/ | Office | Cardiology | Silvia, | | | 2019 | Visit | | PARISA Vernon [address] | | | | | | [place], | | | | | | [place] [address] | | | | | | [phone] | | | | | | | | +--------+ + + + + | 05/21/ | Implant | Cardiology | Daljit Singletary, | Remote Device | | 2019 | Monitor | | [address] [facility] | Interrogation | | | | | [place], | (Primary Dx); | | | | | [place] [address] | Pacemaker; | | | | | [phone] | Sinoatrial node | | | | [...] | | FILTRATION | mL/min/1.73m2 | [facility] | | | [facility] | RATE,ESTIMATED | | MEDICAL | | | | mL/min/1.76o5Dmlw than | | CENTER - | | [...] | appended report. These | | [facility] | | | | results [...] | [address] | [place], [place] | [phone] | | [facility] | | [address] | | | - LABORATORY | | [...] | | | | ANGELA MARADIAGA MD ([id number]) | | | | | | on [...] [address] | [place] | [phone] | | [facility] | | [address] | | | - LABORATORY | | [...] + | [facility] | [address] | [place] | [phone] | | [facility] | | [address] | | | - LABORATORY | | [...]
--- OUTSIDE RECORDS SUMMARY | ~2020-04-15 | XMS | Encounter Summary ---
Demographics + + + | Address | [address] | | | [place] [address] | + + + | Home Phone [...] Team Providers + +------+ + | Care Leases And Land Supervisor Name | Role | Phone | [...] + | 01/30/ | Telephone | [facility] | Daljit Singletary, | Other | | 2019 | | CARDIOLOGY [address] | MD [address] [place] | | | | | [place], | [place], | | | | | [place] [address] | [place] [address] | | | | | [phone] | [phone] | | | | | | | [...] | | | | | | [place] [address] | | | | | | [phone] | | | | | | | | +--------+ + + + + | 05/01/ | Procedure | Cardiology | | | | 2019 | visit | | | | +--------+ + + + + | 05/01/ | Office | Cardiology | Silvia, | | | 2019 | Visit | | PARISA Vernon [address] | | | | | | [place], | | | | | | [place] [address] | | | | | | [phone] | | | | | | | | +--------+ + + + + | 05/21/ | Implant | Cardiology | Daljit Singletary, | Remote Device | 2019 | Monitor | | [address] | Interrogation | | | | | [place], | (Primary Dx); | | | | | [place] [address] | Pacemaker; | | | | | [phone] | Sinoatrial node | | | | [...] 05/02/2019, Expires: | | | | | swinomish coronary | 01/30/2020 | | | | | artery of swinomish | | | | | | heart [...] 05/02/2019, Expires: | | | | | swinomish coronary | 01/31/2020 | | | | | artery of swinomish | | | | | | heart without angina | | | | | | pectoris | | | | | | Hyperlipidemia, | | | | | | mixed | | + +------+--------+ + + documented as of this encounter Visit Diagnoses + + | Diagnosis | + + | Coronary artery disease involving swinomish coronary artery of swinomish heart without | | angina pectoris - Primary | + + | Hyperlipidemia, mixed Mixed hyperlipidemia | + + documented in this encounter"
--- OUTSIDE RECORDS SUMMARY | ~2020-04-15 | XMS | Encounter Summary ---
Demographics + + + | Address | [address] | | | [place] [address] | + + + | Home Phone [...] Providers + +------+ + | Care Press Service Reader Name | Role | Phone | [...] + + | 04/24/ | Office | [facility] | Silvia, | Symptomatic PVCs | | 2012 | Visit | CARDIOLOGY [address] | [place] [address] | (Primary Dx); CAD; | | | | [place], | [place], | Hyperlipidemia; | | | | [place] [address] | [place] [address] | PACEMAKER, PERMANENT | | | | [phone] | [phone] | - [employer] | | | | [...] tablet by mouth Daily. 30 tablet 6 [place]-3 Fatty Acids (SALMON OIL-1000 PO) CAPS, one [...] Reviewed records from PCP and notes from [facility]. Assessment: 1. Symptomatic PVCs status [...] to go back in 3 days to [place] for an attempt of ablation under general [...] He is upgraded to class I of [place] Heart Association functional class. There are no [...] made to ensure accuracy; however, inadvertent computerized electromechanical technologist errors may be pre sent. documented in this encounter Plan of Treatment +--------+ + + + + | Date | Type | Specialty | Care Team | Description | +--------+ + + + + | 05/01/ | Appointment | Radiology | Silvia, | | | 2019 | | | PARISA [address] | | | | | | [place], | | | | | | [place] [address] | | | | | | [phone] | | | | | | | | +--------+ + + + + | 05/01/ | Procedure | Cardiology | | | | 2019 | visit | | | | +--------+ + + + + | 05/01/ | Office | Cardiology | Silvia, | | | 2019 | Visit | | PARISA Vernon W | | | | | | [place], | | | | | | [place] [address] | | | | | | [phone] | | | | | | | | +--------+ + + + + | 05/21/ | Implant | Cardiology | Daljit Singletary, | Remote Device | | 2019 | Monitor | | [address] [facility] | Interrogation | | | | | [place], | (Primary Dx); | | | | | [place] [address] | Pacemaker; | | | | | [phone] | Sinoatrial node | | | | [...] Coronary atherosclerosis of unspecified type of vessel, yavapai-apache or graft | + + | Hyperlipidemia Other and unspecified hyperlipidemia | + + | PACEMAKER, PERMANENT - [employer] 06/14/09GRANT Cardiac pacemaker in situ | + + documented in this encounter
--- OUTSIDE RECORDS SUMMARY | ~2020-04-15 | XMS | Encounter Summary ---
Demographics + + + | Address | [address] | | | [place] [address] | + + + | Home Phone [...] Team Providers + +------+ + | Care Neurosurgery Spine Physician Name | Role | Phone | [...] 2019 | | GASTROENTEROLOGY | [address] [place] | | | | | [address] [place] | [address] [place], [place] | | | | | [address] [place], [place] | [address] | | | | | [address] | | | | | | [phone] | | | +--------+--------+ + + + [...] | | | | | | [place] [address] | | | | | | [phone] | | | | | | | | +--------+ + + + + | 05/01/ | Procedure | Cardiology | | | | 2019 | visit | | | | +--------+ + + + + | 05/01/ | Office | Cardiology | Silvia, | | | 2019 | Visit | | PARISA Vernon [address] | | | | | | [place], | | | | | | [place] [address] | | | | | | [phone] | | | | | | | | +--------+ + + + + | 05/21/ | Implant | Cardiology | Daljit Singletary, | Remote Device | 2019 | Monitor | | [address] [facility] | Interrogation | | | | | [place], | (Primary Dx); | | | | | [place] [address] | Pacemaker; | | | | | [phone] | Sinoatrial node | | | | | | dysfunction (HCC) | | | | | | with symptomatic | | | | | | bradycardia | +--------+ + + + + documented as of this encounter Visit Diagnoses Not on filedocumented in this encounter"
--- OUTSIDE RECORDS SUMMARY | ~2020-04-15 | XMS | Encounter Summary ---
Demographics + + + | Address | [address] [place] [address] [address] | | | [place] [address] | + + + | Home Phone [...] [place] | | | | | [address] | | + + + + + Care Team Providers + +------+ + | Care Veterinary Medicine Scientist Name | Role | Phone | [...]
--- OUTSIDE RECORDS SUMMARY | ~2020-04-15 | XMS | Encounter Summary ---
Demographics + + + | Address | [address] | | | [place] [address] | + + + | Home Phone [...] Providers + +------+ + | Care Oyster Shipper Name | Role | Phone | + [...] | CARDIOLOGY [address] | [address] | Interrogation | | | | [place], | [place], | (Primary Dx); | | | | [place] [address] | [place] [address] | Presence of | | | | [phone] | [phone] | permanent cardiac | | | | [...] | | | | | | [place] [address] | | | | | | [phone] | | | | | | | | +--------+ + + + + | 05/01/ | Procedure | Cardiology | | | | 2019 | visit | | | | +--------+ + + + + | 05/01/ | Office | Cardiology | Silvia, | | | 2019 | Visit | | PARISA Vernon [address] | | | | | | [place], | | | | | | [place] [address] | | | | | | [phone] | | | | | | | | +--------+ + + + + | 05/21/ | Implant | Cardiology | Daljit Singletary, | Remote Device | | 2019 | Monitor | | [address] [place] | Interrogation | | | | | [place], | (Primary Dx); | | | | | [place] [address] | Pacemaker; | | | | | [phone] | Sinoatrial node | | | | [...] remote PDF scanned into | | | [facility] for remote interrogation results. Data [...]
--- OUTSIDE RECORDS SUMMARY | ~2020-04-15 | XMS | Encounter Summary ---
Demographics + + + | Address | [address] | | | [place] [address] | + + + | Home Phone [...] Providers + +------+ + | Care Practice Support Specialist Name | Role | Phone | + +------+ + PCP | Unavailable | + +------+ + Encounter Details +--------+ + + + + | Date | Type | Department | Care Team | Description | +--------+ + + + + | 11/12/ | Hospital | [facility] | | | | 1994 | Encounter | MED CTR GENERIC OP | | | | | | CONV DEPT [address] | | | | | | [place], | | | | | | [place] [address] | | | | | | [phone] | | | +--------+ + + + [...] | | | | | | [place] [address] | | | | | | [phone] | | | | | | | [...] | | | | | | [place] [address] | | | | | | [phone] | | | | | | | | +--------+ + + + + | 05/21/ | Implant | Cardiology | Daljit Singletary, | Remote Device | 2019 | Monitor | | [place] [address] [place] | Interrogation | | | | | [place], | (Primary Dx); | | | | | [place] [address] | Pacemaker; | | | | | [phone] | Sinoatrial node | | | | | | dysfunction (HCC) | | | | | | with symptomatic | | | | | | bradycardia | +--------+ + + + + documented as of this encounter Visit Diagnoses Not on filedocumented in this encounter"
--- OUTSIDE RECORDS SUMMARY | ~2020-04-15 | XMS | Encounter Summary ---
Demographics + + + | Address | [address] | | | [place] [address] | + + + | Home Phone [...] Team Providers + +------+ + | Care Melangeur Operator Name | Role | Phone | + +------+ + PCP | Unavailable | + +------+ + Encounter Details +--------+ + + + + | Date | Type | Department | Care Team | Description | +--------+ + + + + | 02/01/ | [facility] | [facility] | Evan Gandara MD | | | 2008 - | Encounter | MED CTR MED ONC | [address] [facility] [facility] | | | | | [address] [employer] [address] [place] | [place] | | | 02/06/ | | [place] [address] | [address] | | | 2008 | | [phone] | | | +--------+ + + + [...] W | | | | | | [employer] [place], | | | | | | [place] [address] | | | | | | [phone] | | | | | | | | +--------+ + + + + | 05/01/ | Procedure | Cardiology | | | | 2019 | visit | | | | +--------+ + + + + | 05/01/ | Office | Cardiology | Silvia | | | 2019 | Visit | | PARISA Vernon [address] | | | | | | [employer], | | | | | | [place] [address] | | | | | | [phone] | | | | | | | | +--------+ + + + + | 05/21/ | Implant | Cardiology | Daljit Singletary, | Remote Device | 2019 | Monitor | | MD [place] [employer] | Interrogation | | | | | [place], | (Primary Dx); | | | | | [place] [address] | Pacemaker; | | | | | [phone] | Sinoatrial node | | | | | | dysfunction (HCC) | | | | | | with symptomatic | | | | | | bradycardia | +--------+ + + + + documented as of this encounter Visit Diagnoses Not on filedocumented in this encounter"
--- OUTSIDE RECORDS SUMMARY | ~2020-04-15 | XMS | Encounter Summary ---
Demographics + + + | Address | [address] | | | [place] [address] | + + + | Home Phone [...] Providers + +------+ + | Care Floor Sander Name | Role | Phone | [...] + | 06/02/ | Telephone | [facility] | Daljit Singletary, | Other (symptoms) | | 2019 | | CARDIOLOGY [address] | MD [address] [place] | | | | | [place], | [place], | | | | | [place] [address] | [place] [address] | | | | | [phone] | [phone] | | | | | | | [...] | | | | | | [place] [address] | | | | | | [phone] | | | | | | | | +--------+ + + + + | 05/01/ | Procedure | Cardiology | | | | 2019 | visit | | | | +--------+ + + + + | 05/01/ | Office | Cardiology | Silvia, | | | 2019 | Visit | | PARISA Vernon W | | | | | | [place], | | | | | | [place] [address] | | | | | | [phone] | | | | | | | | +--------+ + + + + | 05/21/ | Implant | Cardiology | Daljit Singletary, | Remote Device | 2019 | Monitor | | MD [address] | Interrogation | | | | | [place], | (Primary Dx); | | | | | [place] [address] | Pacemaker; | | | | | [phone] | Sinoatrial node | | | | | | dysfunction (HCC) | | | | | | with symptomatic | | | | | | bradycardia | +--------+ + + + + documented as of this encounter Visit Diagnoses Not on filedocumented in this encounter"
--- OUTSIDE RECORDS SUMMARY | ~2020-04-15 | XMS | Encounter Summary ---
Demographics + + + | Address | [address] | | | [place] [address] | + + + | Home Phone [...] Providers + +------+ + | Care Patent Prosecution Paralegal Name | Role | Phone | [...] [address] | | | | | [place], | [place], | | | | | [place] [address] | [place] [address] | | | | | [phone] | [phone] | | | | | | | [...] | | | | | | [place] [address] | | | | | | [phone] | | | | | | | [...] | | | | | | [place] [address] | | | | | | [phone] | | | | | | | | +--------+ + + + + | 05/21/ | Implant | Cardiology | Daljit Singletary, | Remote Device | | 2019 | Monitor | | [address] [place] | Interrogation | | | | | [place], | (Primary Dx); | | | | | [place] [address] | Pacemaker; | | | | | [phone] | Sinoatrial node | | | | | | dysfunction (HCC) | | | | | | with symptomatic | | | | | | bradycardia | +--------+ + + + + documented as of this encounter Visit Diagnoses Not on filedocumented in this encounter"
--- OUTSIDE RECORDS SUMMARY | ~2020-04-15 | XMS | Encounter Summary ---
Demographics + + + | Address | [address] | | | [place] [address] | + + + | Home Phone [...] + + | 01/05/ | Hospital | [facility] | Emmanuel Daniel MD | Functional diarrhea | | 2019 | Encounter | MED CTR MP INTRA OP | [address], [place] | (Primary Dx); Weight | | | | [address] | [address] [place] | loss | | | | [place], [place] | [address] | | | | | [address] | | | | | | [phone] | | | +--------+ + + + [...] for a few hours. Date Last Reviewed: 09/22/201619998258-8611 [employer]. [address] [place] [address], [place] [address]. All righ ts reserved. This information is [...] vomiting, or vomiting blood Date Last Reviewed: 05/22/201619998883-6564 [employer]. [address] [place] [address]. All [facility] reserved. This information [...] You can't be awakened Date Last Reviewed: 09/08/201619997762-2600 [employer]. [address] [place] [address], [place] [address]. All righ ts reserved. This information is [...] + + + +---------+ + + | Eleanor-3 Fatty | CAPS, one capsule by | [...] | | | | | | [place] [address] | | | | | | [phone] | | | | | | | | +--------+ + + + + | 05/01/ | Procedure | Cardiology | | | | 2019 | visit | | | | +--------+ + + + + | 05/01/ | Office | Cardiology | Silvia, | | | 2019 | Visit | | PARISA [place] [address] | | | | | | [place], | | | | | | [place] [address] | | | | | | [phone] | | | | | | | | +--------+ + + + + | 05/21/ | Implant | Cardiology | Daljit Singletary, | Remote Device | 2019 | Monitor | | [address] | Interrogation | | | | | [place], | (Primary Dx); | | | | | [place] [address] | Pacemaker; | | | | | [phone] | Sinoatrial node | | | | [...] | REFERENCE LAB | | [place] [id number] Handbag Operator: Miguel Galarza MD, Phone: | ARSH CASTANON | | [phone] | | + + + + + + + + | Performing | Address | City/State/Zipcode | Phone Number | | Organization | | | | + + + + + | REFERENCE LAB | [address] | [place], [place] | [phone] | | [facility] | [address] | [address] | | + + + + + [...] [address], | REFERENCE LAB | | [place], [place] [id number] Handbag Operator: Miguel Galarza MD, Phone: | [facility] | | [phone] | | + + + + + + + + | Performing | Address | City/State/Zipcode | Phone Number | | Organization | | | | + + + + + | REFERENCE LAB | [address] | [place], [place] | [phone] | | [facility] | [facility] | [address] | | + + + + + [...] [address] | [place] | [phone] | | [facility] | | [address] | | | - [...] [address] | [place] | [phone] | | [facility] | | [address] | | | - LABORATORY | | [...] [address] | [place] | [phone] | | [facility] | | [address] | | | - LABORATORY | | [...] | | Antigen, | | | [facility] | | | Stool | | | [...] [address] | [place] | [phone] | | [facility] | | [address] | | | - LABORATORY | | [...] + | [facility] | [address] | [place], [place] | [phone] | | [facility] | | [address] | | | - LABORATORY | | [...] [address] | [place] | [phone] | | [facility] | | [address] | | | - LABORATORY | | | | + + + + + EGD (01/05/2019 8:36 AM PST) + + | Specimen | + + | | + + + + -+ | Narrative | Performed At | + + -+ | | [facility] | | GastroenterologyPatient Name: Moe SacnhezProcedpasha Date: | PROVATION | | 01/05/2019 8:36 AMMRN: [id number] #: [id number] of : | | | 9Admit Type: AmbulatoryAge: 58Room: [facility] 01Gender: MaleNote | | | Status: FinalizedAttending MD: Emmanuel Daniel , MDProcedure: | | | Upper GI endoscopyIndications: Diarrhea, Weight | | | lossProviders: Emmanuel Daniel MD, Heidi Mixon Shelby, | | | RN, Kim Hicks, Payroll Accounting Manager, | | | Jarett Barakat MD [...] physician, the nurse, the anesthesiologist and the dye penetrant testing technician | | | in the [...] | | Imaging was performed using the [employer] | | | Endoscopy (FICE) [...] Scope In: 8:43:57 AMScope Out: 8:49:50 [facility] | | | [facility], [address] [place] [address] | | | [phone] | | |Recommendation: | | | - [...] |Scope Out: 8:49:50 AM | | | [facility], [facility] [address] [place], [place] | | | [address] | | + + -+ + +---------+ [...] | PROVATION | | 01/05/2019 8:36 AMMRN: [id number] #: [id number] of : | | | 9Admit Type: AmbulatoryAge: 58Room: [facility] 01Gender: MaleNote | | | Status: FinalizedAttending MD: Emmanuel Daniel , MDProcedure: | | | ColonoscopyIndications: Clinically significant diarrhea of | | | unexplained origin, Weight lossProviders: | | | Emmanuel Daniel MD, Heidi An RN, Kim | | | Fiorella Hicks, Payroll Accounting Manager, Jarett Alejo | | | MD [...] | | | the anesthesiologist and the dye penetrant testing technician in the endoscopy suite. | [...] | | 9:06:28 AM [facility], [address] [place] [address], | | | [place] [address] | | | - Discharge patient to [...] AM | | | [facility], [address] [place] [address], [place], [place] | | | [address] | | + + -+ + +---------+ [...] | | | (atherosclerotic heart disease of [place] coronary artery without | | | angina [...] chronic or | | | microscopic colitis. [facility]:C3NR GROSS DESCRIPTION: A. The | | | specimen, labeled "[place], duodenal biopsy" is received in formalin | | | and consists of seven 0.1-0.5 cm lin fragments. Entirely submitted in | | | (A1). B. The specimen, labeled "[place], right colon" is received | | | in formalin and consists of six 0.2-0.3 cm lin fragments. Entirely | | | submitted in (B1). C. The specimen, labeled "[place], left colon" | | | is received in formalin and consists of six 0.2-0.3 cm lin-pink | | | fragments. Entirely submitted in (C1). am:AMB:portillo PERFORMING | | | LABORATORY: The technical component was performed by [email or web address] | | | [employer], [address] [place] [address] (Candy Counter Clerk: | | | Kailey Stafford MD; CLIA# [id number]). Professional interpretation was | | | performed by [facility], [facility], [address] | | | [place] [address] (Candy Counter Clerk: Ishaan | | | Anthony Dao; CLIA#: [id number]). Diagnostician: Ishaan Fitzpatrick | | | Sylwia [...] ONCE PRN, Wheezing, | | | Starting [facility] 01/05/19 at 0924, | | | [...] ONCE | | | PRN, Nausea, Starting [facility] 01/05/19 | | | at 0924, For 1 dose, | | | Recovery/Phase I | | + +---+ | | | + +---+ documented in this encounter
--- OUTSIDE RECORDS SUMMARY | ~2020-04-15 | XMS | Encounter Summary ---
Demographics + + + | Address | [address] | | | [place] [address] | + + + | Home Phone [...] Providers + +------+ + | Care Server Systems Administrator Name | Role | Phone [...] | CARDIOLOGY [address] | MD [address] [place] | | | | | [place], | [place], | | | | | [place] [address] | [place] [address] | | | | | [phone] | [phone] | | | | | | | [...] | | | | | | [place] [address] | | | | | | [phone] | | | | | | | | +--------+ + + + + | 05/01/ | Procedure | Cardiology | | | | 2019 | visit | | | | +--------+ + + + + | 05/01/ | Office | Cardiology | Silvia, | | | 2019 | Visit | | PARISA Vernon [address] | | | | | | [place], | | | | | | [place] [address] | | | | | | [phone] | | | | | | | | +--------+ + + + + | 05/21/ | Implant | Cardiology | Daljit Singletary, | Remote Device | 2019 | Monitor | | [address] [facility] | Interrogation | | | | | [place], | (Primary Dx); | | | | | [place] [address] | Pacemaker; | | | | | [phone] | Sinoatrial node | | | | | | dysfunction (HCC) | | | | | | with symptomatic | | | | | | bradycardia | +--------+ + + + + documented as of this encounter Visit Diagnoses Not on filedocumented in this encounter"
--- OUTSIDE RECORDS SUMMARY | ~2020-04-15 | XMS | Encounter Summary ---
Demographics + + + | Address | [address] | | | [place] [address] | + + + | Home Phone [...] Providers + +------+ + | Care Beam Dyer Recessed Vat Name | Role | Phone | + [...] Refill | | 2013 | | [facility] | DO [address] | | | | | [address] | [place] | | | | | [place] | [address] | | | | | [address] | | | | | | [phone] | | | +--------+--------+ + + + [...] | | | | | | [place], | | | | | | [place] [address] | | | | | | [phone] | | | | | | | | +--------+ + + + + | 05/01/ | Procedure | Cardiology | | | | 2019 | visit | | | | +--------+ + + + + | 05/01/ | Office | Cardiology | Silvia, | | | 2019 | Visit | | [address] | | | | | | [place], | | | | | | [place] [address] | | | | | | [phone] | | | | | | | | +--------+ + + + + | 05/21/ | Implant | Cardiology | Daljit Singletary, | Remote Device | | 2019 | Monitor | | [address] [facility] | Interrogation | | | | | [place] [place], | (Primary Dx); | | | | | [place] [address] | Pacemaker; | | | | | [phone] | Sinoatrial node | | | | | | dysfunction (HCC) | | | | | | with symptomatic | | | | | | bradycardia | +--------+ + + + + documented as of this encounter Visit Diagnoses Not on filedocumented in this encounter"
--- OUTSIDE RECORDS SUMMARY | ~2020-04-15 | XMS | Encounter Summary ---
Demographics + + + | Address | [address] | | | [place] [address] | + + + | Home Phone [...] Providers + +------+ + | Care Office Machines Sales Representative Name | Role | Phone [...] + + | 08/17/ | Office | [facility] | Michael Amanda, | Testosterone | | 2012 | Visit | [facility] [place] | DO [address] | deficiency (Primary | | | | [address] | [place] | Dx); Hypoglycemia; | | | | [place] | [address] | Herpes | | | | [address] | | | | | | [phone] | | | +--------+---------+ + + + [...] seen at [facility]. He was prescribed OxyContin and Dilaudid. The [...] seen at [facility] yesterday and they prescribed him testostero ne cypionate injections. He's not sure when they wanted him to come back for labs. He has a followup appointment with [facility] in one month. 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 This note is dictated using [employer] voice recognition software. This note was dictated [...] | | | | | | [place], | | | | | | [place] [address] | | | | | | [phone] | | | | | | | | +--------+ + + + + | 05/01/ | Procedure | Cardiology | | | | 2019 | visit | | | | +--------+ + + + + | 05/01/ | Office | Cardiology | Silvia, | | | 2019 | Visit | | PARISA [place] [address] | | | | | | [place], | | | | | | [place] [address] | | | | | | [phone] | | | | | | | | +--------+ + + + + | 05/21/ | Implant | Cardiology | Daljit Singletary, | Remote Device | | 2020 | Monitor | | [address] [facility] | Interrogation | | | | | [address] [place], | (Primary Dx); | | | | | [place] [address] | Pacemaker; | | | | | [phone] | Sinoatrial node | | | | [...]
--- OUTSIDE RECORDS SUMMARY | ~2020-04-15 | XMS | Encounter Summary ---
Demographics + + + | Address | [address] | | | [place] [address] | + + + | Home Phone [...] Providers + +------+ + | Care Bridge Worker Apprentice Name | Role | Phone | [...] | | | | CENTER [address] | [place], [place] | | | | | [place], [place] | [address] | | | | | [address] | | | | | | [phone] | | | +--------+ + + + [...] new doc you can try over at [facility] documented in this encounter Medications at [...] + + + +---------+ + + | [place]-3 Fatty | CAPS, one capsule by | [...] W | | | | | | [place], | | | | | | [place] [address] | | | | | | [phone] | | | | | | | | +--------+ + + + + | 05/01/ | Procedure | Cardiology | | | | 2019 | visit | | | | +--------+ + + + + | 05/01/ | Office | Cardiology | [place]via, | | | 2019 | Visit | | [address] | | | | | | [place], | | | | | | [place] [address] | | | | | | [phone] | | | | | | | | +--------+ + + + + | 05/21/ | Implant | Cardiology | Daljit Singletary, | Remote Device | 2019 | Monitor | | MD [address] [place] | Interrogation | | | | | [place], | (Primary Dx); | | | | | [place] [address] | Pacemaker; | | | | | [phone] | Sinoatrial node | | | | [...]
--- OUTSIDE RECORDS SUMMARY | ~2020-04-15 | XMS | Encounter Summary ---
Demographics + + + | Address | [address] | | | [place] [address] | + + + | Home Phone [...] Providers + +------+ + | Care Transportation Manager Name | Role | Phone | [...] Provider Unknown | | | | | [place], [place] | [phone] | | | | | [address] | | | | | | [phone] | | | +--------+ + + + [...] + + + +---------+ + + | Lohn-3 Fatty | CAPS, one capsule by | [...] | | | | | | [place] [address] | | | | | | [phone] | | | | | | | [...] | | | | | | [place] [address] | | | | | | [phone] | | | | | | | | +--------+ + + + + | 05/21/ | Implant | Cardiology | Daljit Singletary, | Remote Device | 2019 | Monitor | | [address] | Interrogation | | | | | [place], | (Primary Dx); | | | | | [place] [address] | Pacemaker; | | | | | [phone] | Sinoatrial node | | | | [...]
--- OUTSIDE RECORDS SUMMARY | ~2020-04-15 | XMS | Encounter Summary ---
Demographics + + + | Address | [address] | | | [place] [address] | + + + | Home Phone [...] Providers + +------+ + | Care Environmental Program Manager Name | Role | Phone [...] Provider Unknown | | | | | [place], [place] | [phone] | | | | | [address] | | | | | | [phone] | | | +--------+ + + + [...] + + + +---------+ + + | [place]-3 Fatty | CAPS, one capsule by | [...] | | | | | | [place] [address] | | | | | | [phone] | | | | | | | | +--------+ + + + + | 05/01/ | Procedure | Cardiology | | | | 2019 | visit | | | | +--------+ + + + + | 05/01/ | Office | Cardiology | Silvia, | | | 2019 | Visit | | PARISA Vernon W | | | | | | [place], | | | | | | [place] [address] | | | | | | [phone] | | | | | | | | +--------+ + + + + | 05/21/ | Implant | Cardiology | Daljit Singletary, | Remote Device | 2019 | Monitor | | [address] | Interrogation | | | | | [place], | (Primary Dx); | | | | | [place] [address] | Pacemaker; | | | | | [phone] | Sinoatrial node | | | | [...]
--- OUTSIDE RECORDS SUMMARY | ~2020-04-15 | XMS | Encounter Summary ---
Demographics + + + | Address | [address] | | | [place] [address] | + + + | Home Phone [...] Team Providers + +------+ + | Care Sheepskin Pickler Name | Role | Phone | [...] 2018 | | GASTROENTEROLOGY | [address], [place] | about prep for | | | | [address] [place] | [address] [place], [place] | procedure) | | | | [address] [place], [place] | [address] | | | | | [address] | | | | | | [phone] | | | +--------+ + + + [...] | | | | | | [place] [address] | | | | | | [phone] | | | | | | | [...] | | | | | | [place] [address] | | | | | | [phone] | | | | | | | | +--------+ + + + + | 05/21/ | Implant | Cardiology | Daljit Singletary, | Remote Device | 2019 | Monitor | | [address] | Interrogation | | | | | [place], | (Primary Dx); | | | | | [place] [address] | Pacemaker; | | | | | [phone] | Sinoatrial node | | | | | | dysfunction (HCC) | | | | | | with symptomatic | | | | | | bradycardia | +--------+ + + + + documented as of this encounter Visit Diagnoses Not on filedocumented in this encounter"
--- OUTSIDE RECORDS SUMMARY | ~2020-04-15 | XMS | Encounter Summary ---
Demographics + + + | Address | [address] | | | [place] [address] | + + + | Home Phone [...] Team Providers + +------+ + | Care Spectacle Truer Name | Role | Phone | + [...] + + | 05/26/ | Emergency | JACKIDNanette GUTIERREZ MICHELLE | Lizbeth Green | Atypical chest pain | | 2013 | | [facility] | DO Nicole Fink | (Primary Dx); | | | | CENTER [address] | [place], [place] | Anxiety | | | | [place], [place] | [address] | | | | | [address] | | | | | | [phone] | | | +--------+ + + + [...] + + + +---------+ + + | [place]-3 Fatty | CAPS, one capsule by | [...] W | | | | | | [address] [place], | | | | | | [place] [address] | | | | | | [phone] | | | | | | | | +--------+ + + + + | 05/01/ | Procedure | Cardiology | | | | 2019 | visit | | | | +--------+ + + + + | 05/01/ | Office | Cardiology | Silvia, | | | 2019 | Visit | | [address] | | | | | | [place], | | | | | | [place] [address] | | | | | | [phone] | | | | | | | | +--------+ + + + + | 05/21/ | Implant | Cardiology | Daljit Singletary, | Remote Device | 2019 | Monitor | | MD [address] | Interrogation | | | | | [place], | (Primary Dx); | | | | | [place] [address] | Pacemaker; | | | | | [phone] | Sinoatrial node | | | | [...] the uneventful IV administration of 80 mL [id number] contrast. Timing of | | contrast bolus [...] + | MISCELLANEOUS LAB | | | [phone] | + +---------+ + + | MISCELANIOUS LAB | | | [phone] | + +---------+ + + Troponin I [...] + | [facility] | [address] | [place] | [phone] | | [facility] | | [address] | | | - LABORATORY | | | | + + + + + | [facility] | [address] | [place] | | | [facility] | | [address] | | | - [...] mL/min/1.73m2 | [facility] | | | [place] | RATE,ESTIMATED | | MEDICAL | | | | mL/min/1.76t1Mxad than | | CENTER - | | [...] [address] | [place] | [phone] | | [facility] | | [address] | | | - LABORATORY | | | | + + + + + | [facility] | [address] | [place] | | | [facility] | | [address] | | | - [...] + | [facility] | [address] | [place] | [phone] | | [facility] | | [address] | | | - LABORATORY | | | | + + + + + | [facility] | [address] | [place], [place] | | | [facility] | | [address] | | | - LABORATORY [...]
--- OUTSIDE RECORDS SUMMARY | ~2020-04-15 | XMS | Encounter Summary ---
Demographics + + + | Address | [address] | | | [place] [address] | + + + | Home Phone [...] Team Providers + +------+ + | Care Toolmaker Grade Three Name | Role | Phone | + [...] | Ascending | [place], | [address] [place] | | | | | aortic | Janeen, TICKET SALES AGENT | [place], | | | | | aneurysm | [address] | [place] | | | | | ([facility]) | [place] | [address] | | | | | Procedures | [place], | Phone: | | | | | ECHO | [place] | [phone] | | | | | Complete | [address] | Fax: | | | | | | Phone: | [phone] | | | | | | [phone] | | | | | | | Fax: | | | | | | | [phone] | | + +--------+ + + + [...] | MD [address] | [address] | | | | | hypertension | [address] | [place], | | | | | Sick sinus | [address] | [place] | | | | | syndrome | [place], [place] | [address] | | | | | (HCC) | [address] | Phone: | | | | | Ventricular | Phone: | [phone] | | | | | premature | [phone] | Fax: | | | | | depolarizati | Fax: | [phone] | | | | | on | [phone] | | | | | | Tachycardia, | | | | | | | unspecified | | | | | | | | | | | | | | Atherosclero | | | | | | | tic heart | | | | | | | disease of | | | | | | | [place] | | [...] + | 01/01/ | Office | [facility] | [place], | Ascending thoracic | | 2020 | Visit | CARDIOLOGY [address] | PARISA Vernon [address] | aortic aneurysm | | | | [place], | [place], | (HCC) (Primary Dx); | | | | [place] [address] | [place] [address] | Coronary artery | | | | [phone] | [phone] | disease involving | | | | [...] encounter Patient Instructions Patient Instructions Vidhi Gillespie, Community Representative - 01/01/2020 7:30 AM PST1. Esau nue [...] of critical coronary artery disea se involving [place] coronary artery of [place] heart without angina pectoris, essential hyper tension, [...] for weight loss, he was defer to [facility], per psychiatrics to have some sort of a patient [...] health care Coronary artery disease involving [place] coronary artery of [place] heart without angina pectoris Cannabis [...] ONE TABLET UNDER THE TONGUE EVERY 5 CA NUTES NEEDED FOR CHEST PAIN 250 tablet 0 nortriptyline (PAMELOR) 25 mg capsule Take 25 mg by mouth. [place]-3 Fatty Acids (SALMON OIL-1000 PO) CAPS, one capsule by mouth daily twice daily ondansetron (ZOFRAN ODT) 4 mg disintegrating tablet Take 4 mg by mouth every 8 hours as needed for Nausea. ondansetron (ZOFRAN) 4 mg tablet Take 4 mg by mouth. ONE TOUCH [facility] Check glucose as needed for hypoglycemia [...] was found Confirmed by GURJIT WINKLER, SYDNI ([id number]) on 06/06/2019 3:43:10 PM LAB RESULTS reviewed [...] BNP 48 06/02/2019 I reviewed records from [facility] for office visit on 06/06/2019 wh ich is summarized in the HPI. RESULTS- I reviewed reports from [facility]: No results found. Above data and testing is reviewed this visit; testing below is historical data unless othe rwise specified. ASSESSMENT: 1. Non-critical Coronary artery disease involving [place] coronary artery of [place] heart [facility] angina pectoris: A.Normal exercise sestamibi [...] symptoms; no limitations of activities of the [place] [employer] functional class. Heart failure [...] performed by Dr Juan Diego Gambino at [facility] on 01/30/2013.Patient had spontaneous PVC'sfr [...] to go back in 3 days to [place] for an attempt of ablation under general [...] advised to having his MRI done in [place] at [place] which has a repeat MRI protocol for [...] advised to having his MRI done in [place] at [place] which has a repeat MRI protocol for such situations. Patient also will need echocardiogram for his next appointmen t to evaluate his ascending aorta Vidhi Clemente, Community Representative am acting as a scribe on behalf of, and in the prese nce of PARISA Lomas. - Vidhi Gillespie, Community Representative 01/01/2020 5:29 PM I, PARISA Lomas, personally performed the services described in this documentati on, as scribed in my presence and it is both accurate and complete. -PARISA Lomas 01/01/2020 Portions of this chart may have been created with [employer]te[employer] voice recognition software. Occasi onal wrong-word or [...] | | | | | | [place] [address] | | | | | | [phone] | | | | | | | | +--------+ + + + + | 05/01/ | Procedure | Cardiology | | | | 2019 | visit | | | | +--------+ + + + + | 05/01/ | Office | Cardiology | Silvia, | | | 2019 | Visit | | PARISA Vernon W | | | | | | [place], | | | | | | [place] [address] | | | | | | [phone] | | | | | | | | +--------+ + + + + | 05/21/ | Implant | Cardiology | Sydni Singletary, | Remote Device | | 2019 | Monitor | | [address] [place] | Interrogation | | | | | [place], | (Primary Dx); | | | | | [place] [address] | Pacemaker; | | | | | [phone] | Sinoatrial node | | | | [...] + | Coronary artery disease involving [place] coronary artery of [place] heart without | | angina [...]
--- OUTSIDE RECORDS SUMMARY | ~2020-04-15 | XMS | Encounter Summary ---
Demographics + + + | Address | [address] | | | [place] [address] | + + + | Home Phone [...] Team Providers + +------+ + | Care Torch Solderer Name | Role | Phone | + +------+ + PCP | Unavailable | + +------+ + Encounter Details +--------+ + + + + | Date | Type | Department | Care Team | Description | +--------+ + + + + | 12/16/ | Hospital | [facility] | | | | 2010 | Encounter | MED CTR LABORATORY | | | | | | [address] | | | | | | [place] | | | | | | [address] | | | | | | [phone] | | | +--------+ + + + [...] | | | | | | [place] [address] | | | | | | [phone] | | | | | | | | +--------+ + + + + | 05/01/ | Procedure | Cardiology | | | | 2019 | visit | | | | +--------+ + + + + | 05/01/ | Office | Cardiology | [place], | | | 2019 | Visit | | PARISA Vernon W | | | | | | [place], | | | | | | [place] [address] | | | | | | [phone] | | | | | | | | +--------+ + + + + | 05/21/ | Implant | Cardiology | Daljit Singletary, | Remote Device | 2019 | Monitor | | [address] [place] | Interrogation | | | | | [place], | (Primary Dx); | | | | | [place] [address] | Pacemaker; | | | | | [phone] | Sinoatrial node | | | | | | dysfunction (HCC) | | | | | | with symptomatic | | | | | | bradycardia | +--------+ + + + + documented as of this encounter Visit Diagnoses Not on filedocumented in this encounter"
--- OUTSIDE RECORDS SUMMARY | ~2020-04-15 | XMS | Encounter Summary ---
Demographics + + + | Address | [address] | | | [place] [address] | + + + | Home Phone [...] Providers + +------+ + | Care Wafer Line Worker Name | Role | Phone [...] + + | 08/30/ | Refill | [facility] | Kirk French | Medication Refill | | 2019 | | [facility] | MD Brea [address] | | | | | [address] | | | | | [address] | [place] [address] | | | | | [place], [place] | [phone] | | | | | [address] | | | | | | [phone] | | | +--------+--------+ + + + [...] | | | | | | [place] [address] | | | | | | [phone] | | | | | | | | +--------+ + + + + | 05/01/ | Procedure | Cardiology | | | | 2019 | visit | | | | +--------+ + + + + | 05/01/ | Office | Cardiology | Silvia, | | | 2019 | Visit | | PARISA Vernon [address] | | | | | | [place], | | | | | | [place] [address] | | | | | | [phone] | | | | | | | | +--------+ + + + + | 05/21/ | Implant | Cardiology | Daljit Singletary, | Remote Device | | 2019 | Monitor | | [address] [facility] | Interrogation | | | | | [place], | (Primary Dx); | | | | | [place] [address] | Pacemaker; | | | | | [phone] | Sinoatrial node | | | | | | dysfunction (HCC) | | | | | | with symptomatic | | | | | | bradycardia | +--------+ + + + + documented as of this encounter Visit Diagnoses Not on filedocumented in this encounter"
--- OUTSIDE RECORDS SUMMARY | ~2020-04-15 | XMS | Encounter Summary ---
Demographics + + + | Address | [address] | | | [place] [address] | + + + | Home Phone [...] Providers + +------+ + | Care Family Medicine Chair Name | Role | Phone | + +------+ + | Kirk French MD | PCP | | + +------+ + Encounter Details +--------+ + + + + | Date | Type | Department | Care Team | Description | +--------+ + + + + | 01/25/ | Hospital | [facility] | Daljit Singletary, | Stable angina | | 2019 | Encounter | MED CTR CV INTRA OP | MD [address] | pectoris (HCC) | | | | [address] | [address] [place], | | | | | [place] | [place] [address] | | | | | [address] | [phone] | | | | | [phone] | | | +--------+ + + + [...] as a collagen plugis used on the lewiston triny site to close the site, you [...] by your healthcare provider Date Last Reviewed: 09/22/201619993605-7784 [employer]. [address] [place] [address]. All righ ts reserved. This information is [...] + + + +---------+ + + | [place]-3 Fatty | CAPS, one capsule by | [...] | | | | | | [place], | | | | | | [place] [address] | | | | | | [phone] | | | | | | | | +--------+ + + + + | 05/01/ | Procedure | Cardiology | | | | 2019 | visit | | | | +--------+ + + + + | 05/01/ | Office | Cardiology | Silvia, | | | 2019 | Visit | | PARISA Vernon [address] | | | | | | [place], | | | | | | [place] [address] | | | | | | [phone] | | | | | | | | +--------+ + + + + | 05/21/ | Implant | Cardiology | Daljit Singletary, | Remote Device | | 2019 | Monitor | | MD [address] | Interrogation | | | | | [place], | (Primary Dx); | | | | | [place] [address] | Pacemaker; | | | | | [phone] | Sinoatrial node | | | | [...] (1960) MEDICAL RECORD NUMBER: | | | [id number] OF PROCEDURE: 01/25/2019 WAGE AND HOUR INVESTIGATOR: Daljit | | | MD Gemini PROCEDURES [...] Sanchez, (1960) | | OF PROCEDURE: 01/25/2019PRIMARY DIGITAL MARKETING APPRENTICE: Daljit Singletary MD PROCEDURES | | PERFORMED:Coronary [...] | Aggressive medical management. | | [facility] 9:[facility] PROVID[facility]:Kirk French MDFor additional detail as [...]
--- OUTSIDE RECORDS SUMMARY | ~2020-04-15 | XMS | Encounter Summary ---
Demographics + + + | Address | [address] | | | [place] [address] | + + + | Home Phone [...] + +------+ + | Care Quality Assurance Monitor Final Name | Role | Phone | [...] | | [address] | [place] [address] | | | 2012 | | [place] | [phone] | | | | | [address] | | | | | | [phone] | | | +--------+ + + + [...] 1960 ADMISSION DATE: 01/30/2013 DISCHARGE DATE: 01/31/2013 [id number] / [id number] ADMITTING DIAGNOSES: 1. Symptomatic PVCs. 2. Sinus [...] 150, 1 to 2 tabs daily. 10. [place]-3 fatty acids 1000 mg b.i.d. MOE GAY ADM:01/30/13 [id number] 01/31/13 DIS [place] DISCHARGE SUMMARY [id number] [facility] Carmela Cuevas PAC B [facility] MD Meena Pleitez THIS REPORT IS CONFIDENTIAL AND NOT TO BE RELEASED WITHOUT PROPER AUTHORIZATION. [facility] 11. Valacyclovir 500 mg daily. B. New medication added: Diltiazem CD 180 a day. FOLLOWUP: The patient has a followup appointment on 03/02/2013 at 10:[address] Niles meza at the [facility], [address]. No heavy lifting or driving times 48 hours. YOANA Barlow MD A P [facility] #[id number] cc: MD Carmela Pleitez PA-C Electronically Signed 02/06/13 1616 LAKESHIA Barlow Electronically Signed 02/20/13 0731 Jay Gambino MD MOE GAY ADM:01/30/13 [id number] 01/31/13 DIS [place] DISCHARGE SUMMARY [id number] [facility] LAKESHIA Barlow B [facility] Jay Gambino MD R THIS REPORT IS CONFIDENTIAL AND NOT TO BE RELEASED WITHOUT PROPER AUTHORIZATION.Electronica lly signed by Jael Brown at 02/20/2013 7:31 AM FRANCYZzCarmela Moncada - 02/01/20 13 8:44 AM PDT PATIENT NAME: MOE GAY Sex/Age: M / 52Y : 1960 ADMISSION DATE: 01/30/2013 DISCHARGE DATE: 01/31/2013 [id number] / [id number] ADMITTING DIAGNOSES: 1. Symptomatic PVCs. 2. Sinus [...] 150, 1 to 2 tabs daily. 10. [place]-3 fatty acids 1000 mg b.i.d. MOE GAY ADM:01/30/13 [id number] 01/31/13 DIS [place] DISCHARGE SUMMARY [id number] [facility] LAKESHIA Barlow B [facility] MD Meena Pleitez THIS REPORT IS CONFIDENTIAL AND NOT TO BE RELEASED WITHOUT PROPER AUTHORIZATION. [facility] 11. Valacyclovir 500 mg daily. B. New medication added: Diltiazem CD 180 a day. FOLLOWUP: The patient has a followup appointment on 03/02/2013 at 10:[address] Niles meza at the [facility], [address]. No heavy lifting or driving times 48 hours. YOANA Barlow MD A P [facility] #[id number] cc: MD Carmela Pleitez PA-C Electronically Signed 02/06/13 1616 LAKESHIA Barlow MOE GAY ADM:01/30/13 [id number] 01/31/13 DIS [place] DISCHARGE SUMMARY [id number] [facility] LAKESHIA Barlow ES B [facility] Jay Gambino MD R THIS REPORT IS [...] + + + +---------+ + + | [place]-3 Fatty | CAPS, one capsule by [...] | | | | | | [place] [address] | | | | | | [phone] | | | | | | | | +--------+ + + + + | 05/01/ | Procedure | Cardiology | | | | 2019 | visit | | | | +--------+ + + + + | 05/01/ | Office | Cardiology | Silvia, | | | 2019 | Visit | | PARISA Vernon [address] | | | | | | [place], | | | | | | [place] [address] | | | | | | [phone] | | | | | | | | +--------+ + + + + | 05/21/ | Implant | Cardiology | Daljit Singletary, | Remote Device | | 2019 | Monitor | | MD [address] [place] | Interrogation | | | | | [place], | (Primary Dx); | | | | | [place] [address] | Pacemaker; | | | | | [phone] | Sinoatrial node | | | | [...] + + | [facility] | [address] | [place] [address] | | | [facility] | [...] + + | TRENTONE ROBERT | [address] [place]. | [place] [address] | | | [facility] | | | | | LABORATORY | | | | + + + + + | [facility] | | | | | [facility] | | | | | [...] + + | Glucose | 113 (H)Comment: Guamanian | 65 - 99 mg/dL | [facility] [...] + + | [facility] | [address] | [place] [address] | | | [facility] | | | | | LABORATORY | | | | + + + + + | [facility] | | | | | [facility] | | | | | LABORATORY | | | | + + + + + documented in this encounter Visit Diagnoses Not on filedocumented in this encounter"
--- OUTSIDE RECORDS SUMMARY | ~2020-04-15 | XMS | Encounter Summary ---
Demographics + + + | Address | [address] | | | [place] [address] | + + + | Home Phone [...] Team Providers + +------+ + | Care Fagoter Name | Role | Phone | + [...] [address] | | | | | [place], | [place], | | | | | [place] [address] | [place] [address] | | | | | [phone] | [phone] | | | | | | | [...] | | | | | [place], | | | | | | [place] [address] | | | | | | [phone] | | | | | | | | +--------+ + + + + | 05/01/ | Procedure | Cardiology | | | | 2019 | visit | | | | +--------+ + + + + | 05/01/ | Office | Cardiology | Silvia, | | | 2019 | Visit | | PARISA Vernon W | | | | | | [place], | | | | | | [place] [address] | | | | | | [phone] | | | | | | | | +--------+ + + + + | 05/21/ | Implant | Cardiology | Daljit Singletary, | Remote Device | | 2020 | Monitor | | [address] [facility] | Interrogation | | | | | [place], | (Primary Dx); | | | | | [place] [address] | Pacemaker; | | | | | [phone] | Sinoatrial node | | | | [...]
--- OUTSIDE RECORDS SUMMARY | ~2020-04-15 | XMS | Encounter Summary ---
Demographics + + + | Address | [address] | | | [place] [address] | + + + | Home Phone [...] Team Providers + +------+ + | Care Entertainment Lawyer Name | Role | Phone | [...] CARDIOLOGY [address] | MD [address] [place] | blood clots) | | | | [place], | [place], | | | | | [place] [address] | [place] [address] | | | | | [phone] | [phone] | | | | | | | [...] | | | | | | [place] [address] | | | | | | [phone] | | | | | | | | +--------+ + + + + | 05/01/ | Procedure | Cardiology | | | | 2019 | visit | | | | +--------+ + + + + | 05/01/ | Office | Cardiology | Silvia, | | | 2019 | Visit | | PARISA Vernon W | | | | | | [place], | | | | | | [place] [address] | | | | | | [phone] | | | | | | | | +--------+ + + + + | 05/21/ | Implant | Cardiology | Daljit Singletary, | Remote Device | | 2020 | Monitor | | [address] [facility] | Interrogation | | | | | [place], | (Primary Dx); | | | | | [place] [address] | Pacemaker; | | | | | [phone] | Sinoatrial node | | | | | | dysfunction (HCC) | | | | | | with symptomatic | | | | | | bradycardia | +--------+ + + + + documented as of this encounter Visit Diagnoses Not on filedocumented in this encounter"
--- OUTSIDE RECORDS SUMMARY | ~2020-04-15 | XMS | Encounter Summary ---
Demographics + + + | Address | [address] | | | [place] [address] | + + + | Home Phone [...] Providers + +------+ + | Care Fish Drier Name | Role | Phone | [...] | Interrogation | | | | [place], | [place], | (Primary Dx); | | | | [place] [address] | [place] [address] | Pacemaker; | | | | [phone] | [phone] | Sinoatrial node | | | | [...] | | | | | | [place] [address] | | | | | | [phone] | | | | | | | | +--------+ + + + + | 05/01/ | Procedure | Cardiology | | | | 2019 | visit | | | | +--------+ + + + + | 05/01/ | Office | Cardiology | Silvia, | | | 2019 | Visit | | PARISA Vernon [address] | | | | | | [place], | | | | | | [place] [address] | | | | | | [phone] | | | | | | | | +--------+ + + + + | 05/21/ | Implant | Cardiology | Daljit Singletary, | Remote Device | | 2019 | Monitor | | [address] [place] | Interrogation | | | | | [place], | (Primary Dx); | | | | | [place] [address] | Pacemaker; | | | | | [phone] | Sinoatrial node | | | | [...] scanned into | | | [facility] for remote interrogation results. Data collected [...]
--- OUTSIDE RECORDS SUMMARY | ~2020-04-15 | XMS | Encounter Summary ---
Demographics + + + | Address | [address] | | | [place] [address] | + + + | Home Phone [...] Providers + +------+ + | Care Tele Rn Name | Role | Phone | [...] + | 06/23/ | Office | [facility] | [place], | Ascending thoracic | | 2016 | Visit | CARDIOLOGY [address] | PARISA [place] [address] | aortic aneurysm | | | | [place], | [place], | ([facility]) (Primary Dx); | | | | [place] [address] | [place] [address] | Coronary artery | | | | [phone] | [phone] | disease involving | | | | | | [place] coronary | | | | | | artery of [place] | | | | | | heart [...] in office in 6 months. hgabby, Janeen, HEALTH TECHNICAL WRITER - 06/23/2016 12:45 PM PDT PATIENT NAME: Moe Sanchez : 1960: AGE: 56 y.o. PRIMARY CARE: Kirk French MD OUTPATIENT FOLLOW UP VISIT Date of Service: 06/23/2016 HISTORY OF PRESENT ILLNESS: Moe Sanchez is a 56 y.o. 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 Non-critical Coronary artery disease involving [place] coronary artery of [place] heart [facility] angina pectoris: A. Normal exercise sestamibi stress [...] pain. He is in class I-II of [place] [facility] [employer] n functional class. There are [...] to go back in 3 days to [place] for an attempt of ablation under general [...] this chart may have been created with [employer] voice recognition software. Occasi onal wrong-word [...] | | | | | | [place] [address] | | | | | | [phone] | | | | | | | [...] | | | | | | [place] [address] | | | | | | [phone] | | | | | | | | +--------+ + + + + | 05/21/ | Implant | Cardiology | SunshinecherelleSydni, | Remote Device | | 2019 | Monitor | | [address] [facility] | Interrogation | | | | | [place], | (Primary Dx); | | | | | [place] [address] | Pacemaker; | | | | | [phone] | Sinoatrial node | | | | [...] the | | | | PDT | [place] coronary | results section. | | | | | artery of [place] | | | | | | heart [...] MD | | | | | | ([id number]) on 06/23/2016 | | | | | [...] + + | Coronary artery disease involving [place] coronary artery of [place] heart without | | angina pectoris | [...]
--- OUTSIDE RECORDS SUMMARY | ~2020-04-15 | XMS | Encounter Summary ---
Demographics + + + | Address | [address] | | | [place] [address] | + + + | Home Phone [...] + +------+ + | Care Head Of [place] Name | Role | Phone | + +------+ + PCP | Unavailable | + +------+ + Encounter Details +--------+ + + + + | Date | Type | Department | Care Team | Description | +--------+ + + + + | 02/21/ | [facility] | [facility] | Cristy Braun | | | 2008 | Encounter | MED CTR EMERGENCY | MD Ronald [address] | | | | | [place] [address] | [facility], | | | | | [place] | [place] [address] | | | | | [address] | [phone] | | | | | [phone] | | | +--------+ + + + [...] | | 2020 | | | PARISA eVrnon [address] | | | | | | [place], | | | | | | [place] [address] | | | | | | [phone] | | | | | | | | +--------+ + + + + | 05/01/ | Procedure | Cardiology | | | | 2019 | visit | | | | +--------+ + + + + | 05/01/ | Office | Cardiology | Silvia | | | 2019 | Visit | | PARISA [place] [address] | | | | | | [place], | | | | | | [place] [address] | | | | | | [phone] | | | | | | | | +--------+ + + + + | 05/21/ | Implant | Cardiology | Daljit Singletary, | Remote Device | 2019 | Monitor | | MD [address] [place] | Interrogation | | | | | [place], | (Primary Dx); | | | | | [place] [address] | Pacemaker; | | | | | [phone] | Sinoatrial node | | | | | | dysfunction (HCC) | | | | | | with symptomatic | | | | | | bradycardia | +--------+ + + + + documented as of this encounter Visit Diagnoses Not on filedocumented in this encounter"
--- OUTSIDE RECORDS SUMMARY | ~2020-04-15 | XMS | Encounter Summary ---
Demographics + + + | Address | [address] | | | [place] [address] | + + + | Home Phone [...] Providers + +------+ + | Care Metal Buffer Name | Role | Phone | [...] CARDIOLOGY [address] | MD [address] [place] | reprogramming/check | | | | [place], | [place], | DO NOT DELETE | | | | [place] [address] | [place] [address] | (Primary Dx); | | | | [phone] | [phone] | Pacemaker - | | | | [...] | | | | | | [place] [address] | | | | | | [phone] | | | | | | | [...] | | | | | | [place] [address] | | | | | | [phone] | | | | | | | | +--------+ + + + + | 05/21/ | Implant | Cardiology | Daljit Singletary, | Remote Device | | 2019 | Monitor | | [address] [place] | Interrogation | | | | | [place], | (Primary Dx); | | | | | [place] [address] | Pacemaker; | | | | | [phone] | Sinoatrial node | | | | [...]
--- OUTSIDE RECORDS SUMMARY | ~2020-04-15 | XMS | Encounter Summary ---
Demographics + + + | Address | [address] | | | [place] [address] | + + + | Home Phone [...] Providers + +------+ + | Care Sales Host Name | Role | Phone | [...] | | | | | [address] | | | | | | [place], [place] | | | | | | [address] | | | | | | [phone] | | | +--------+ + + + [...] | | | | | | [place] [address] | | | | | | [phone] | | | | | | | | +--------+ + + + + | 05/01/ | Procedure | Cardiology | | | | 2019 | visit | | | | +--------+ + + + + | 05/01/ | Office | Cardiology | Silvia, | | | 2019 | Visit | | PARISA Vernon [address] | | | | | | [place], | | | | | | [place] [address] | | | | | | [phone] | | | | | | | | +--------+ + + + + | 05/21/ | Implant | Cardiology | Daljit Singletary, | Remote Device | 2019 | Monitor | | [address] [place] | Interrogation | | | | | [place], | (Primary Dx); | | | | | [place] [address] | Pacemaker; | | | | | [phone] | Sinoatrial node | | | | [...]
--- OUTSIDE RECORDS SUMMARY | ~2020-04-15 | XMS | Encounter Summary ---
Demographics + + + | Address | [address] | | | [place] [address] | + + + | Home Phone [...] Providers + +------+ + | Care Avionics Mechanic Name | Role | Phone | + +------+ + PCP | Unavailable | + +------+ + Encounter Details +--------+ + + + + | Date | Type | Department | Care Team | Description | +--------+ + + + + | 08/26/ | Hospital | [facility] | | | | 2009 | Encounter | MED CTR LABORATORY | | | | | | [address] | | | | | | [place] | | | | | | [address] | | | | | | [phone] | | | +--------+ + + + [...] | | | | | | [place] [address] | | | | | | [phone] | | | | | | | [...] | | | | | | [place] [address] | | | | | | [phone] | | | | | | | | +--------+ + + + + | 05/21/ | Implant | Cardiology | Daljit Singletary, | Remote Device | 2019 | Monitor | | [address] | Interrogation | | | | | [place], | (Primary Dx); | | | | | [place] [address] | Pacemaker; | | | | | [phone] | Sinoatrial node | | | | | | dysfunction (HCC) | | | | | | with symptomatic | | | | | | bradycardia | +--------+ + + + + documented as of this encounter Visit Diagnoses Not on filedocumented in this encounter"
--- OUTSIDE RECORDS SUMMARY | ~2020-04-15 | XMS | Encounter Summary ---
Demographics + + + | Address | [address] | | | [place] [address] | + + + | Home Phone [...] Providers + +------+ + | Care Circus Rider Name | Role | Phone | [...] | CARDIOLOGY [address] | [address] | Interrogation | | | | [place], | [place], | (Primary Dx); | | | | [place] [address] | [place] [address] | Presence of | | | | [phone] | [phone] | permanent cardiac | | | | [...] | | | | | | [place] [address] | | | | | | [phone] | | | | | | | | +--------+ + + + + | 05/01/ | Procedure | Cardiology | | | | 2019 | visit | | | | +--------+ + + + + | 05/01/ | Office | Cardiology | Silvia, | | | 2019 | Visit | | PARISA Vernon [address] | | | | | | [place], | | | | | | [place] [address] | | | | | | [phone] | | | | | | | | +--------+ + + + + | 05/21/ | Implant | Cardiology | Daljit Singletary, | Remote Device | | 2019 | Monitor | | [address] | Interrogation | | | | | [place], | (Primary Dx); | | | | | [place] [address] | Pacemaker; | | | | | [phone] | Sinoatrial node | | | | [...] PDF scanned into | | | [facility] for remote interrogation results. Data [...]
--- OUTSIDE RECORDS SUMMARY | ~2020-04-15 | XMS | Encounter Summary ---
Demographics + + + | Address | [address] | | | [place] [address] | + + + | Home Phone [...] Team Providers + +------+ + | Care Blending Tank Helper Name | Role | Phone | [...] 2018 | | MED CTR EMERGENCY | Martlel Cr MD [address] | Dx) | | | | [place] [address] [place] | [address] [place] | | | | | [place], [place] | [place] [address] | | | | | [address] | [phone] | | | | | [phone] | | | +--------+ + + + [...] + + + +---------+ + + | [place]-3 Fatty | CAPS, one capsule by | [...] | | | | | | [place], | | | | | | [place] [address] | | | | | | [phone] | | | | | | | | +--------+ + + + + | 05/01/ | Procedure | Cardiology | | | | 2019 | visit | | | | +--------+ + + + + | 05/01/ | Office | Cardiology | Silvia, | | | 2019 | Visit | | PARISA Vrenon [address] | | | | | | [place], | | | | | | [place] [address] | | | | | | [phone] | | | | | | | | +--------+ + + + + | 05/21/ | Implant | Cardiology | Daljit Singletary, | Remote Device | | 2019 | Monitor | | [address] [place] | Interrogation | | | | | [place], | (Primary Dx); | | | | | [place] [address] | Pacemaker; | | | | | [phone] | Sinoatrial node | | | | [...] W?MRN: | | | | | | [id number] | | | [id number] | | | his | | | [...] | | | ent/60 | | | [id number] | | | -5586- | | | [...] | | | St. | | | [place] | | | y H. | | [...] | | | St. | | | [place] | | | y H. | | [...] | | | St. | | | [place] | | | y H. | | [...] | | | St. | | | [place] | | | y H. | | [...] | | | St. | | | [place] | | | y | | | [...] | | | ext. | | | [address] | | | or go | | [...] [address] | [place] | [phone] | | [facility] | | [address] | | | - LABORATORY | | [...] ST. | [address] | [place], [place] | [phone] | | [facility] | | [address] | | | - LABORATORY | | [...] | | | FILTRATION | mL/min/1.73m2 | [facility] | | | SAMOAN | RATE,ESTIMATED | | MEDICAL | | | | mL/min/1.67x6Cjlq than | | CENTER - | | [...] | [facility] | [address] | [place] | [phone] | | [facility] | | [address] | | | - LABORATORY | | [...] [address] | [place] | [phone] | | [facility] | | [address] | | | - LABORATORY | | | | + + + + + documented in this encounter Visit Diagnoses + + | Diagnosis | + + | Bronchitis - Primary Bronchitis, not specified as acute or chronic | + + documented in this encounter"
--- OUTSIDE RECORDS SUMMARY | ~2020-04-15 | XMS | Encounter Summary ---
Demographics + + + | Address | [address] | | | [place] [address] | + + + | Home Phone [...] Providers + +------+ + | Care Refrigeration Repair Supervisor Name | Role | Phone | + +------+ + | Kirk French MD | PCP | | + +------+ + Encounter Details +--------+ + + + + | Date | Type | Department | Care Team | Description | +--------+ + + + + | 01/05/ | Orders Only | [facility] | Emmanuel Daniel MD | | | 2019 | | [facility] | [address] [place], [place] | | | | | PATHOLOGY [address] | [address] [place], [place] | | | | | BLVD [place], [place] | [address] | | | | | [address] | | | | | | [phone] | | | +--------+ + + + [...] | | | | | | [place] [address] | | | | | | [phone] | | | | | | | | +--------+ + + + + | 05/01/ | Procedure | Cardiology | | | | 2019 | visit | | | | +--------+ + + + + | 05/01/ | Office | Cardiology | Silvia, | | | 2019 | Visit | | PARISA Vernon W | | | | | | [place], | | | | | | [place] [address] | | | | | | [phone] | | | | | | | | +--------+ + + + + | 05/21/ | Implant | Cardiology | Daljit Singletary, | Remote Device | | 2019 | Monitor | | [address] [facility] | Interrogation | | | | | [place], | (Primary Dx); | | | | | [place] [address] | Pacemaker; | | | | | [phone] | Sinoatrial node | | | | [...] | | | (atherosclerotic heart disease of [place] coronary artery without | | | angina [...] chronic or | | | microscopic colitis. BES:[facility]:C3NR GROSS DESCRIPTION: A. The | | | specimen, labeled "[place], duodenal biopsy" is received in formalin | | | and consists of seven 0.1-0.5 cm lin fragments. Entirely submitted in | | | (A1). B. The specimen, labeled "[place], right colon" is received | | | in formalin and consists of six 0.2-0.3 cm lin fragments. Entirely | | | submitted in (B1). C. The specimen, labeled "[place], left colon" | | | is received in formalin and consists of six 0.2-0.3 cm lin-pink | | | fragments. Entirely submitted in (C1). am:AMB:rds PERFORMING | | | LABORATORY: The technical component was performed by [employer] | | | [employer], [address] [place] [address] (Business Systems Technician: | | | Kailey Stafford MD; CLIA# [id number]). Professional interpretation was | | | performed by [employer], [facility], [facility] | | | [place] [address] (Business Systems Technician: Ishaan | | | Anthony Dao; CLIA#: [id number]). Diagnostician: Ishaan Bay MD Pathologist Electronically Signed [...]
--- OUTSIDE RECORDS SUMMARY | ~2020-04-15 | XMS | Encounter Summary ---
Demographics + + + | Address | [address] | | | [place] [address] | + + + | Home Phone [...] + +------+ + | Care Petroleum Refining Equipment Operator Name | Role | Phone [...] 2015 | | CARDIOLOGY [address] | AUDIT CLERKS SUPERVISOR [address] [place] | reprogramming/check | | | | [place], | St [place], [place] | DO NOT DELETE | | | | [place] [address] | [address] | (Primary Dx); | | | | [phone] | | Pacemaker - | | | [...] W | | | | | | [place], | | | | | | [place] [address] | | | | | | [phone] | | | | | | | | +--------+ + + + + | 05/01/ | Procedure | Cardiology | | | | 2019 | visit | | | | +--------+ + + + + | 05/01/ | Office | Cardiology | Silvia, | | | 2019 | Visit | | PARISA Vernon W | | | | | | [place], | | | | | | [place] [address] | | | | | | [phone] | | | | | | | | +--------+ + + + + | 05/21/ | Implant | Cardiology | Daljit Singletary, | Remote Device | | 2019 | Monitor | | [address] [facility] | Interrogation | | | | | [place], | (Primary Dx); | | | | | [place] [address] | Pacemaker; | | | | | [phone] | Sinoatrial node | | | | [...] | | 2. Coronary artery disease involving augustine coronary artery of | | | augustine heart without angina pectoris I25.10 414.01 ECHO [...]
--- OUTSIDE RECORDS SUMMARY | ~2020-04-15 | XMS | Encounter Summary ---
Demographics + + + | Address | [address] | | | [place] [address] | + + + | Home Phone [...] Team Providers + +------+ + | Care Childcare Administrator Name | Role | Phone | + +------+ + | Kirk French MD | PCP | | + +------+ + Encounter Details +--------+ + + + + | Date | Type | Department | Care Team | Description | +--------+ + + + + | 08/29/ | Hospital | [facility] | [place] | DVT (deep venous | | 2015 | Encounter | MED CTR ULTRASOUND | PARISA [place] [address] | thrombosis), | | | | [address] [place] | [place], | bilateral (HCC) | | | | [place], [place] | [place] [address] | | | | | [address] | [phone] | | | | | [phone] | | | +--------+ + + + [...] + + + +---------+ + + | [place]-3 Fatty | CAPS, one capsule by [...] | | | | | | | #[id number], exp 07/2016 | | | | | [...] | | | | | | [place], | | | | | | [place] [address] | | | | | | [phone] | | | | | | | | +--------+ + + + + | 05/01/ | Procedure | Cardiology | | | | 2019 | visit | | | | +--------+ + + + + | 05/01/ | Office | Cardiology | Silvia, | | | 2019 | Visit | | PARISA Vernon [address] | | | | | | [place], | | | | | | [place] [address] | | | | | | [phone] | | | | | | | | +--------+ + + + + | 05/21/ | Implant | Cardiology | Daljit Singletary, | Remote Device | 2019 | Monitor | | MD [address] [place] | Interrogation | | | | | [place], | (Primary Dx); | | | | | [place] [address] | Pacemaker; | | | | | [phone] | Sinoatrial node | | | | [...] the groin through the popliteal fossa | [facility] | | in both lower extremities.. [...] conveyed to the ordering provider, by the internal audit consultant, | | | immediately following the exam. [...] to the ordering provider, by the | |internal audit consultant, immediately following the exam. | | | | | |Dictated and Signed by: Emmanuel Gibbons MD | | Electronically signed: 08/29/2015 3:25 PM | + + + + + + + | Performing | Address | City/State/Zipcode | Phone Number | | Organization | | | | + + + + + | [facility] | [address] | [place] | [phone] | | [facility] | | [address] | | | - IMAGING | | | | + + + + + documented in this encounter Visit Diagnoses + + | Diagnosis | + + | DVT (deep venous thrombosis), bilateral | + + documented in this encounter"
--- OUTSIDE RECORDS SUMMARY | ~2020-04-15 | XMS | Encounter Summary ---
Demographics + + + | Address | [address] | | | [place] [address] | + + + | Home Phone [...] | | | | Sinoatrial | Geri, BUILDING ATTENDANT | [address] | | | | | node | [address] | [place], | | | | | dysfunction | [place] | [place] | | | | | (HCC) | [place], [place] | [address] | | | | | Coronary | [address] | Phone: | | | | | artery | Phone: | [phone] | | | | | disease | [phone] | Fax: | | | | | involving | Fax: | [phone] | | | | | [place] | [phone] | | | | | | coronary | | | | | | | artery of | | | | | | | [place] heart | | | | | | [...] | | | | | | Complete [place] | | | | | | | ECHO HEART | | | | | | | XTHORACIC,CO | | | | | | | MPLETE W | | | | | | | DOPPLER ND | | | | | | [...] | | | | Sinoatrial | Geri, BUILDING ATTENDANT | [address] | | | | | node | [address] | [place], | | | | | dysfunction | [place] | [place] | | | | | ([facility]) | [place], [place] | [address] | | | | | Coronary | [address] | Phone: | | | | | artery | Phone: | [phone] | | | | | disease | [phone] | Fax: | | | | | involving | Fax: | [phone] | | | | | [place] | [phone] | | | | | | coronary | | | | | | | artery of | | | | | | | [place] heart | | | | | | [...] | | | | | | Complete [place] | | | | | | | ECHO HEART | | | | | | | XTHORACIC,CO | | | | | | | MPLETE W | | | | | | | DOPPLER ND | | | | | | [...] + + + + | 06/16/ | [facility] | [facility] | Geri Angel, | Sinoatrial node | | 2016 | Encounter | MED CTR ECHO [address] | BUILDING ATTENDANT [address] | dysfunction (HCC) | | | | [address] [place] | [place], [place] | with symptomatic | | | | [place] [address] | [address] | bradycardia; | | | | [phone] | | Coronary artery | | | | | Juvenal Blake, | disease involving | | | | | Technologist | [place] coronary | | | | | | artery of [place] | | | | | | heart [...] + + + +---------+ + + | Byars-3 Fatty | CAPS, one capsule by | [...] | | | | | | [place] [address] | | | | | | [phone] | | | | | | | [...] | | | | | | [place] [address] | | | | | | [phone] | | | | | | | | +--------+ + + + + | 05/21/ | Implant | Cardiology | Sydni Singletary, | Remote Device | | 2019 | Monitor | | [facility] | Interrogation | | | | | [address], | (Primary Dx); | | | | | [place] [address] | Pacemaker; | | | | | [phone] | Sinoatrial node | | | | [...] involving | | | | | | [place] coronary | | | | | | artery of [place] | | | | | | heart [...] Demographics Patient Name VICTOR HUGO | [facility] | | DEMOREST Room Number SARAH Patient | [facility] | | [id number] Date of Study 06/16/2016 Number | - IMAGING | | Visit Number [id number] | | | Referring Physician JOSE ARMANOD GARCIA Number Date of 1960 | | | Investigations Manager LUIS FERNANDO DUARTE Age | | | 56 year(s) Interpreting | | | GURJIT TROY | | | Cutter First SYDNI SINGLETARY, | | | Gender | | | Male Nurse Procedure Type of Study TTE | | | procedure: ECHO Complete. Procedure dateDate: 06/16/2016Start: 10:55 | | | AM Technical Quality: Adequate visualizationStudy Location: Echo | | | LabIndications: CAD [place] CORONARY ARTERY 414.01/ I25.10 and | | [...] BARRY Room Number SARAH | | Patient [id number] Date of Study 06/16/2016 Number Visit Number | | [id number] Referring Physician JOSE ARMANDO GARCIA Number | | Date of 1960 Investigations Manager LUIS FERNANDO DUARTE Age | | 56 year(s) Interpreting GURJIT TROY | | Cutter First SYDNI SINGLETARY, | | Gender Male NurseProcedureType of Study TTE | | procedure: ECHO Complete.Procedure dateDate: 06/16/2016Start: 10:55 AMTechnical Quality: | | Adequate visualizationStudy Location: Echo LabIndications: CAD [place] CORONARY ARTERY | | 414.01/ I25.10 and [...] [address] | [place] | [phone] | | [facility] | | [address] | | | - IMAGING | | [...] + + | Coronary artery disease involving [place] coronary artery of [place] heart without | | angina pectoris | + + | Ascending thoracic aortic aneurysm (HCC) Thoracic aneurysm without mention of rupture | + + documented in this encounter"
--- OUTSIDE RECORDS SUMMARY | ~2020-04-15 | XMS | Encounter Summary ---
Demographics + + + | Address | [address] | | | [place] [address] | + + + | Home Phone [...] Providers + +------+ + | Care Assembly Technician Name | Role | Phone | [...] + + | 03/07/ | Office | [facility] | [place], | SINUS BRADYCARDIA | | 2013 | Visit | CARDIOLOGY [address] | [address] | (Primary Dx); | | | | [place], | [place], | Syncope; Symptomatic | | | | [place] [address] | [place] [address] | PVCs; Pacemaker - | | | | [phone] | [phone] | Medtronic - [id number] | | | [...] Sanchez Date: March 07, 2014 : 1960 Communications And Signals Supervisor: Kailey Pruitt RN Device Chief Procurement Officer:Medtronic Sense (mV) Impedance (?) Capture (V) Capture (ms) A Lead >5.60 402 1.500 0.09 RV Lead >31.36 522 2.00 0.09 LV Lead Battery Impedance (?): 528 Battery Voltage (V): 2.79 OH Interval (ms): 147 AR Interval (ms): 217 VA Conduction: Mode Switch Events: 0 % of time: 0 -RISK OFFICER: <0.1% AP-RISK OFFICER: 0.1% -VS: 23.8% AP-VS: 76.1% RISK OFFICER: Magnetic Rate: 85 LINDA: 65 LEAH: Current [...] RN 03/07/2014 12:00 Janeen Mccollum AR SUPERVISOR GRADING - 03/07/2014 11:07 AM PDT PATIENT NAME: [...] headaches. He paulino d been seen at [facility] a couple times with chest [...] needed for Chest pain. 25 tablet 12 [place]-3 Fatty Acids (SALMON OIL-1000 PO) CAPS, [...] another healthcare provider. DEVICE INTERROGATION Name: Moe Sanhcez Date: March 07, 2014 : 1960 Communications And Signals Supervisor: Kailey Pruitt RN Device Chief Procurement Officer:Jiujiuweikang Sense (mV) Impedance (?) Capture (V) Capture (ms) A Lead >5.60 402 1.500 0.09 RV Lead >31.36 522 2.00 0.09 LV Lead Battery Impedance (?): 528 Battery Voltage (V): 2.79 OH Interval (ms): 147 AR Interval (ms): 217 VA Conduction: Mode Switch Events: 0 % of time: 0 -RISK OFFICER: <0.1% AP-RISK OFFICER: 0.1% -VS: 23.8% AP-VS: 76.1% RISK OFFICER: Magnetic Rate: 85 LINDA: 65 LEAH: Current [...] pain. He is in class II of [place] [employer] functional class . There are [...] to go back in 3 days to [place] for an attempt of ablation under general [...] palpitations.. He is in class II of [place] [employer] functional class. There are no [...] bring in his blood pressure logs from [facility] e 5. Lightheadedness and dizziness/ presyncope: A. [...] made to ensure accuracy; however, inadvertent computerized rim technician errors may be pre sent. Electronically [...] | | | | | | [place] [address] | | | | | | [phone] | | | | | | | | +--------+ + + + + | 05/01/ | Procedure | Cardiology | | | | 2019 | visit | | | | +--------+ + + + + | 05/01/ | Office | Cardiology | Silvia, | | | 2019 | Visit | | [address] | | | | | | [place], | | | | | | [place] [address] | | | | | | [phone] | | | | | | | | +--------+ + + + + | 05/21/ | Implant | Cardiology | Daljit Singletary, | Remote Device | 2019 | Monitor | | [address] [facility] | Interrogation | | | | | [place], | (Primary Dx); | | | | | [place] [address] | Pacemaker; | | | | | [phone] | Sinoatrial node | | | | [...] 07, 2014 : | | | 1960 Communications And Signals Supervisor: Kailey Pruitt RN Device | | | Chief Procurement Officer:9Flavatronic Sense (mV) Impedance (?) Capture (V) | | | Capture (ms) A Lead >5.60 402 1.500 0.09 RV Lead >31.36 522 2.00 | | | 0.09 LV Lead Battery Impedance (?): 528 Battery Voltage (V): | | | 2.79 OH Interval (ms): 147 AR Interval (ms): 217 VA Conduction: | | | Mode Switch Events: 0 % of time: 0 -RISK OFFICER: <0.1% AP-RISK OFFICER: 0.1% -VS: | | | 23.8% AP-VS: 76.1% RISK OFFICER: Magnetic Rate: 85 LINDA: 65 LEAH: Current [...] | | Date: March 07, 2014DOB: 1960 Communications And Signals Supervisor: Kailey Pruitt RN Device | | Chief Procurement Officer:Medtronic Sense (mV) Impedance (?) Capture (V) Capture (ms) A Lead >5.60 | | 402 1.500 0.09 RV Lead >31.36 522 2.00 0.09 LV Lead Battery Impedance (?): 528 | | Battery Voltage (V): 2.79 OH Interval (ms): 147 AR Interval (ms): 217 VA Conduction: | | Mode Switch Events: 0 % of time: 0 -RISK OFFICER: <0.1% AP-RISK OFFICER: 0.1% -VS: 23.8% AP-VS: 76.1% | | RISK OFFICER: Magnetic Rate: 85 LINDA: 65 LEAH: Current [...]
--- OUTSIDE RECORDS SUMMARY | ~2020-04-15 | XMS | Encounter Summary ---
Demographics + + + | Address | [address] | | | [place] [address] | + + + | Home Phone [...] Team Providers + +------+ + | Care Porter Sample Case Name | Role | Phone | + [...] 2019 | | GASTROENTEROLOGY | [address] [place], [place] | Syndrome | | | | [address] [place] | [address] [place], [place] | | | | | [address] [place], [place] | [address] | | | | | [address] | | | | | | [phone] | | | +--------+ + + + [...] | | | | | | [place] [address] | | | | | | [phone] | | | | | | | | +--------+ + + + + | 05/01/ | Procedure | Cardiology | | | | 2019 | visit | | | | +--------+ + + + + | 05/01/ | Office | Cardiology | [place], | | | 2019 | Visit | | [address] | | | | | | [place], | | | | | | [place] [address] | | | | | | [phone] | | | | | | | | +--------+ + + + + | 05/21/ | Implant | Cardiology | Daljit Singletary, | Remote Device | | 2019 | Monitor | | [address] [place] [address] [place] | Interrogation | | | | | [place], | (Primary Dx); | | | | | [place] [address] | Pacemaker; | | | | | [phone] | Sinoatrial node | | | | | | dysfunction ([facility]) | | | | | | with symptomatic | | | | | | bradycardia | +--------+ + + + + documented as of this encounter Visit Diagnoses Not on filedocumented in this encounter"
--- OUTSIDE RECORDS SUMMARY | ~2020-04-15 | XMS | Encounter Summary ---
Demographics + + + | Address | [address] | | | [place] [address] | + + + | Home Phone [...] Providers + +------+ + | Care Television Audio Engineer Name | Role | Phone [...] 2019 | | GASTROENTEROLOGY | [address] [place], [place] | | | | | [address] [place] | [address] [place], [place] | | | | | 210 [place], [place] | [address] | | | | | [address] | | | | | | [phone] | | | +--------+ + + + [...] | | | | | | [place] [address] | | | | | | [phone] | | | | | | | | +--------+ + + + + | 05/01/ | Procedure | Cardiology | | | | 2019 | visit | | | | +--------+ + + + + | 05/01/ | Office | Cardiology | [place], | | | 2019 | Visit | | [address] | | | | | | [place], | | | | | | [place] [address] | | | | | | [phone] | | | | | | | | +--------+ + + + + | 05/21/ | Implant | Cardiology | Daljit Singletary, | Remote Device | 2019 | Monitor | | MD [address] | Interrogation | | | | | [place], | (Primary Dx); | | | | | [place] [address] | Pacemaker; | | | | | [phone] | Sinoatrial node | | | | | | dysfunction (HCC) | | | | | | with symptomatic | | | | | | bradycardia | +--------+ + + + + documented as of this encounter Visit Diagnoses Not on filedocumented in this encounter"
--- OUTSIDE RECORDS SUMMARY | ~2020-04-15 | XMS | Encounter Summary ---
Demographics + + + | Address | [address] [place] [address] [address] | | | [place] [address] | + + + | Home Phone [...] [place] | | | | | [address] | | + + + + + Care Team Providers + +------+ + | Care Salesperson Furniture Name | Role | Phone | [...] 2 | | | | | | [place], [place] | [place], [place] | | | | | | [address] | [address] | | | | | | Phone: | Phone: | | | | | | [phone] | [phone] | | | | | | Fax: | Fax: | | | | | | [phone] | [phone] | +--------+--------+ + + + + Encounter Details +--------+---------+ + + + | Date | Type | Department | Care Team | Description | +--------+---------+ + + + | 09/28/ | Office | [facility]ive [facility] | Bridgette Rios, | Chronic diarrhea | | 2019 | Visit | [facility] [address] | [address] | (Primary Dx); | | | | [address] | [place], [place] | Abdominal cramping; | | | | Mailcode: [place] | [address] | Unintentional weight | | | | for Health and | [phone] | loss | | | | [facility] 2 | | | | | | [place], [place] | | | | | | [address] | | | | | | [phone] | | | +--------+---------+ + + + [...] lab orders to [facility] [place] 2. supervisor order takers the nortryptiline and take 1 tablet each [...] om the original. Gastroenterology Clinic [facility] ~ Initial Consultation / New [...] done through [facility] November show ed mild diverticulosis [...] of Present Illness: Here with his from [place] for second opinion regarding severe abdominal cramps, isreal rrhea and weight loss following a GI illness contracted during a trip to [facility]. He reports that 2 years ago he was traveling in [facility] and he had some suspicious seafood. He develo ps profound bloody diarrhea with severe abdominal pain. He was hospitalized in [facility] and w as treated with IV hydration. [...] file Gets together: Not on file Attends bahai service: Not on file Active member of [...] Plan and Recommendations: 1. [facility] in [place] for stool studies as outlined above 2. If negative and symptoms persist, recommend capsule endoscopy (this could be completed b y local communications intern or he could return to [place] for this test) 3. Nortryptiline 25mg q HS with instruction to titrate to 50mg q HS after 2 weeks if tolera kevin Follow-Up: with local communications intern Counseling Time: I spent a total of 35 minutes with this patient, of which greater than 50 % of the time was spent in counseling. Specific issues that were discussed included a revie w of the disease, diagnostic tools that help in our management plans for the patient's chron ic diarrhea, abdominal cramping and weight loss and goals for treatment. Bridgette Rios MD Collections And Archives Director Gastroenterology documented in this e ncounter Plan [...]
--- OUTSIDE RECORDS SUMMARY | ~2020-04-15 | XMS | Encounter Summary ---
Demographics + + + | Address | [address] | | | [place] [address] | + + + | Home Phone [...] Team Providers + +------+ + | Care Museum Director Name | Role | Phone | + +------+ + PCP | Unavailable | + +------+ + Encounter Details +--------+ + + + + | Date | Type | Department | Care Team | Description | +--------+ + + + + | 11/14/ | [facility] | [facility] | William Hirsch | | | 1999 | Encounter | MED CTR EMERGENCY | MD Cristobal [address] | | | | | CENTER [address] [place] | [address] | | | | | [place] | [place] [address] | | | | | [address] | [phone] | | | | | [phone] | | | +--------+ + + + [...] W | | | | | | [place], | | | | | | [place] [address] | | | | | | [phone] | | | | | | | | +--------+ + + + + | 05/01/ | Procedure | Cardiology | | | | 2019 | visit | | | | +--------+ + + + + | 05/01/ | Office | Cardiology | Silvia, | | | 2019 | Visit | | [address] W | | | | | | [place], | | | | | | [place] [address] | | | | | | [phone] | | | | | | | | +--------+ + + + + | 05/21/ | Implant | Cardiology | Daljit Singletary, | Remote Device | | 2019 | Monitor | | MD [address] [place] [place] | Interrogation | | | | | [place], | (Primary Dx); | | | | | [place] [address] | Pacemaker; | | | | | [phone] | Sinoatrial node | | | | | | dysfunction (HCC) | | | | | | with symptomatic | | | | | | bradycardia | +--------+ + + + + documented as of this encounter Visit Diagnoses Not on filedocumented in this encounter"
--- OUTSIDE RECORDS SUMMARY | ~2020-04-15 | XMS | Encounter Summary ---
Demographics + + + | Address | [address] | | | [place] [address] | + + + | Home Phone [...] Providers + +------+ + | Care Machine Coil Assembler Name | Role | Phone | [...] [address] | | | | | | [place], [place] | (Fax) | | | | | [address] | | | | | | [phone] | | | +--------+ + + + [...] | | | | | | [place] [address] | | | | | | [phone] | | | | | | | | +--------+ + + + + | 05/01/ | Procedure | Cardiology | | | | 2019 | visit | | | | +--------+ + + + + | 05/01/ | Office | Cardiology | [place], | | | 2019 | Visit | | PARISA Vernon [address] | | | | | | [place], | | | | | | [place] [address] | | | | | | [phone] | | | | | | | | +--------+ + + + + | 05/21/ | Implant | Cardiology | Daljit Singletary, | Remote Device | | 2019 | Monitor | | [address] [place] | Interrogation | | | | | [place], | (Primary Dx); | | | | | [place] [address] | Pacemaker; | | | | | [phone] | Sinoatrial node | | | | | | dysfunction (HCC) | | | | | | with symptomatic | | | | | | bradycardia | +--------+ + + + + documented as of this encounter Visit Diagnoses Not on filedocumented in this encounter"
--- OUTSIDE RECORDS SUMMARY | ~2020-04-15 | XMS | Encounter Summary ---
Demographics + + + | Address | [address] | | | [place] [address] | + + + | Home Phone [...] Team Providers + +------+ + | Care Smart Energy Specialist Name | Role | Phone | + +------+ + | Kirk French MD | PCP | | + +------+ + Encounter Details +--------+ + + + + | Date | Type | Department | Care Team | Description | +--------+ + + + + | 01/21/ | Anesthesia | [facility] | Jarett Barakat | | | 2020 | Event | MED CTR MP INTRA OP | P, MD [address] | | | | | [address] | [place], [place] | | | | | [place], [place] | [address] | | | | | [address] | [phone] | | | | | [phone] | | | +--------+ + + + [...] | | | | | | [place] [address] | | | | | | [phone] | | | | | | | | +--------+ + + + + | 05/01/ | Procedure | Cardiology | | | | 2019 | visit | | | | +--------+ + + + + | 05/01/ | Office | Cardiology | [place], | | | 2019 | Visit | | PARISA [address] | | | | | | [place], | | | | | | [place] [address] | | | | | | [phone] | | | | | | | | +--------+ + + + + | 05/21/ | Implant | Cardiology | Daljit Singletary, | Remote Device | | 2019 | Monitor | | MD Sim [facility] | Interrogation | | | | | [place], | (Primary Dx); | | | | | [place] [address] | Pacemaker; | | | | | [phone] | Sinoatrial node | | | | | | dysfunction (HCC) | | | | | | with symptomatic | | | | | | bradycardia | +--------+ + + + + documented as of this encounter Visit Diagnoses Not on filedocumented in this encounter"
--- OUTSIDE RECORDS SUMMARY | ~2020-04-15 | XMS | Encounter Summary ---
Demographics + + + | Address | [address] | | | [place] [address] | + + + | Home Phone [...] Providers + +------+ + | Care Humidifier Operator Name | Role | Phone | [...] | 07/30/ | Telephone | [facility] | Michael Amanda, | Results | | 2013 | | MEDICINE [place] | DO [address] | | | | | [address] | [place] | | | | | [place] | [address] | | | | | [address] | | | | | | [phone] | | | +--------+ + + + [...] W | | | | | | [place], | | | | | | [place] [address] | | | | | | [phone] | | | | | | | | +--------+ + + + + | 05/01/ | Procedure | Cardiology | | | | 2019 | visit | | | | +--------+ + + + + | 05/01/ | Office | Cardiology | [place]via, | | | 2019 | Visit | | [address] [place] W | | | | | | [place], | | | | | | [place] [address] | | | | | | [phone] | | | | | | | | +--------+ + + + + | 05/21/ | Implant | Cardiology | Daljit Singletary, | Remote Device | 2019 | Monitor | | MD [address] | Interrogation | | | | | [place], | (Primary Dx); | | | | | [place] [address] | Pacemaker; | | | | | [phone] | Sinoatrial node | | | | | | dysfunction (HCC) | | | | | | with symptomatic | | | | | | bradycardia | +--------+ + + + + documented as of this encounter Visit Diagnoses Not on filedocumented in this encounter"
--- OUTSIDE RECORDS SUMMARY | ~2020-04-15 | XMS | Encounter Summary ---
Demographics + + + | Address | [address] [place] [address] [address] LOZ[address] | | | [place] [address] | + + + | Home Phone [...] [place] | | | | | [address] | | + + + + + Care Team Providers + +------+ + | Care Catalytic Converter Operator Helper Name | Role | Phone [...] | | | | at [facility] | [facility] | | | | | [address] | [place] [address] | | | | | [address] | | | | | | [place], [address] [place] [address] | | | | | | [place], [place] | | | | | | [address] | | | | | | [phone] | | | +--------+ + + + [...] view image for the detailed interpretation from [facility] results. | CARDIOLOGY | + + + + + + + + | Performing | Address | City/State/Zipcode | Phone Number | | Organization | | | | + + + + + | [facility] | [address] | [place], [place] | | | CARDIOLOGY | [address] | [address] | | + + + + + documented in this encounter Visit Diagnoses Not on filedocumented in this encounter"
--- OUTSIDE RECORDS SUMMARY | ~2020-04-15 | XMS | Encounter Summary ---
Demographics + + + | Address | [address] | | | [place] [address] | + + + | Home Phone [...] Providers + +------+ + | Care Center Director Name | Role | Phone | [...] abdominal | [address] | [address], | | | | | pain | [address] | [address] | | | | | Chronic pain | [address] | [place], | | | | | syndrome | [place], [place] | [place] [address] | | | | | Procedures | [address] | Phone: | | | | | Office Visit | Phone: | [phone] | | | | | | [phone] | Fax: | | | | | | Fax: | [phone] | | | | | | [phone] | | +--------+--------+ + + + + Encounter Details +--------+---------+ + + + | Date | Type | Department | Care Team | Description | +--------+---------+ + + + | 12/02/ | Office | [facility] [place] | Emmanuel Daniel MD | Diarrhea, | | 2018 | Visit | GASTROENTEROLOGY | [address], [place] | unspecified type | | | | [address] | [address] [place], [place] | (Primary Dx); Weight | | | | [address] [place], [place] | [address] | loss, | | | | [address] | | unintentional; | | | | [phone] | | Generalized | | | | [...] | | | | | | [place] [address] | | | | | | [phone] | | | | | | | | +--------+ + + + + | 05/01/ | Procedure | Cardiology | | | | 2019 | visit | | | | +--------+ + + + + | 05/01/ | Office | Cardiology | Silvia, | | | 2019 | Visit | | PARISA Vernon [address] | | | | | | [place], | | | | | | [place] [address] | | | | | | [phone] | | | | | | | | +--------+ + + + + | 05/21/ | Implant | Cardiology | Daljit Singletary, | Remote Device | 2019 | Monitor | | [address] [facility] | Interrogation | | | | | [place], | (Primary Dx); | | | | | [place] [address] | Pacemaker; | | | | | [phone] | Sinoatrial node | | | | [...]
--- OUTSIDE RECORDS SUMMARY | ~2020-04-15 | XMS | Encounter Summary ---
Demographics + + + | Address | [address] | | | [place] [address] | + + + | Home Phone [...] Providers + +------+ + | Care Animal Care Assistant Name | Role | Phone [...] Amanda, | | | 2013 | | [facility] | DO [address] | | | | | [address] | [place] | | | | | [place] | [address] | | | | | [address] | | | | | | [phone] | | | +--------+ + + + [...] | | | | | | [place] [address] | | | | | | [phone] | | | | | | | | +--------+ + + + + | 05/01/ | Procedure | Cardiology | | | | 2019 | visit | | | | +--------+ + + + + | 05/01/ | Office | Cardiology | Silvia, | | | 2019 | Visit | | PARISA [address] | | | | | | [place], | | | | | | [place] [address] | | | | | | [phone] | | | | | | | | +--------+ + + + + | 05/21/ | Implant | Cardiology | Daljit Singletary, | Remote Device | | 2019 | Monitor | | [address] | Interrogation | | | | | [place], | (Primary Dx); | | | | | [place] [address] | Pacemaker; | | | | | [phone] | Sinoatrial node | | | | [...] [address] | [place] | [phone] | | [facility] | | [address] | | | - LABORATORY | | | | + + + + + | [address] | [address] | [place] | | | [facility] | | [address] | | | - LABORATORY [...] | | | | | | | [place], | | | [...]
--- OUTSIDE RECORDS SUMMARY | ~2020-04-15 | XMS | Encounter Summary ---
Demographics + + + | Address | [address] | | | [place] [address] | + + + | Home Phone [...] Providers + +------+ + | Care Chief Meteorologist Name | Role | Phone | [...] 2012 | | CARDIOLOGY [address] | BLAST SETTER [address] | faxed) | | | | [place], | [place] [facility], [place] | | | | | [place] [address] | [address] | | | | | [phone] | | | +--------+ + + + [...] | | | | | | [place] [address] | | | | | | [phone] | | | | | | | [...] | | | | | | [place] [address] | | | | | | [phone] | | | | | | | | +--------+ + + + + | 05/21/ | Implant | Cardiology | Daljit Singletary, | Remote Device | | 2019 | Monitor | | [facility] | Interrogation | | | | | [address], | (Primary Dx); | | | | | [place] [address] | Pacemaker; | | | | | [phone] | Sinoatrial node | | | | | | dysfunction (HCC) | | | | | | with symptomatic | | | | | | bradycardia | +--------+ + + + + documented as of this encounter Visit Diagnoses Not on filedocumented in this encounter"
--- OUTSIDE RECORDS SUMMARY | ~2020-04-15 | XMS | Encounter Summary ---
Demographics + + + | Address | [address] [place] [address] [address] LOZANO | | | [place] [address] | + + + | Home Phone [...] [place] | | | | | [address] | | + + + + + [...] | | 2019 | | Center at [facility] [address] | MD [address] | | | | | [address] | [place], [place] | | | | | Mailcode: [place] | [address] | | | | | [facility] and | [phone] | | | | | [place] [address] | | | | | | [place], [place] | | | | | | [address] | | | | | | [phone] | | | +--------+ + + + [...]
--- OUTSIDE RECORDS SUMMARY | ~2020-04-15 | XMS | Encounter Summary ---
Demographics + + + | Address | [address] | | | [place] [address] | + + + | Home Phone [...] Providers + +------+ + | Care Board Lining Machine Operator Name | Role | Phone | + +------+ + | Mcihael Amanda DO | PCP | | + +------+ + Encounter Details +--------+ + + + + | Date | Type | Department | Care Team | Description | +--------+ + + + + | 12/25/ | Hospital | [facility] | Daljit Singletary, | | | 2013 | Encounter | MED CTR XRAY [address] | [address] [place] | | | | | [place] | [place], | | | | | [place] [address] | [place] [address] | | | | | [phone] | [phone] | | | | | | | [...] | | | | | | [place] [address] | | | | | | [phone] | | | | | | | | +--------+ + + + + | 05/01/ | Procedure | Cardiology | | | | 2019 | visit | | | | +--------+ + + + + | 05/01/ | Office | Cardiology | Silvia, | | | 2019 | Visit | | PARISA [address] | | | | | | [place], | | | | | | [place] [address] | | | | | | [phone] | | | | | | | | +--------+ + + + + | 05/21/ | Implant | Cardiology | Daljit Singletary, | Remote Device | | 2019 | Monitor | | [address] [place] | Interrogation | | | | | [place], | (Primary Dx); | | | | | [place] [address] | Pacemaker; | | | | | [phone] | Sinoatrial node | | | | [...] Performed At | + + + | [facility] | [place] | | Department [address] [place] [address] | [facility] | | [ rep ct [address]] [ rep [facility] | | st zip] Signed | - IMAGING | | | | | Patient Name: MOE GAY | | | Physician: MIGUELINA : 1960 Age: 53 Sex: M Unit | | | #: [id number] Exam Date: 12/25/13 Location: | | | SDS SDS-D Report #: [id number] Page: | | | %(RAD)RES..mtdd.print.filter("pg") of %(RAD) | | | RES..mtdd.print.filter("tpg") | | | | | | Accession Number: [id number] | | | LEFT HEART CATHETERIZATION, 12/25/2013 [...] the patient was taken to the cardiac superintendent geophysical laboratory. She | | | was prepared and draped in the usual fashion. Under sterile | | | technique and local anesthesia, percutaneous access was obtained | | | using #5 Senegalese sheath in the right radial artery. Right heart cath | | | was not performed on this patient. Left ventriculography was | | | performed using #5 multipurpose diagnostic catheter. The selective | | | coronary angiography was then performed in several sagittal and | | | oblique projections using #5 multipurpose and #5 Senegalese JL 3.5 | | | diagnostic catheters. [...] Transcribed | | | Date/Time: 12/25/2013 11:52 Nurse Discharge Planner: | | | <<Signature on File>> | | | Daljit | | | MD Gemini [facility] FAS12/25/13 1343 <Electronically signed by | | | Daljit Singletary MD, [facility], FACP, ADELINE, YEN> Daljit | | | MD Gemini [facility] ADELINE 12/25/13 1035 Nurse Discharge Planner: Jessica | | | Rmngpppbzgped94/03/14 1152 | | + + + + + + + + | Performing | Address | City/State/Zipcode | Phone Number | | Organization | | | | + + + + + | [facility] | [address] | [place] | [phone] | | [facility] | | [address] | | | - IMAGING | | | | + + + + + documented in this encounter Visit Diagnoses Not on filedocumented in this encounter
--- OUTSIDE RECORDS SUMMARY | ~2020-04-15 | XMS | Encounter Summary ---
Demographics + + + | Address | [address] [place] [address] [address] | | | [place] [address] | + + + | Home Phone [...] [place] | | | | | [address] | | + + + + + Care Team Providers + +------+ + | Care Hunter Skin Diver Name | Role | Phone | [...] | | | [address] | [place], [place] | | | | | Mailcode: [place] | [address] | | | | | for Health and | [phone] | | | | | [facility], [facility] 2 | | | | | | [facility] [place] | | | | | | [address] | | | | | | [phone] | | | +--------+ + + + [...]
--- OUTSIDE RECORDS SUMMARY | ~2020-04-15 | XMS | Encounter Summary ---
Demographics + + + | Address | [address] | | | [place] [address] | + + + | Home Phone [...] Providers + +------+ + | Care Chemical Sales Representative Name | Role | Phone | + +------+ + PCP | Unavailable | + +------+ + Encounter Details +--------+ + + + + | Date | Type | Department | Care Team | Description | +--------+ + + + + | 12/01/ | Hospital | [facility] | | | | 1997 | Encounter | [facility]Y | | | | | | CENTER [address] | | | | | | [place] | | | | | | [address] | | | | | | [phone] | | | +--------+ + + + [...] | | | | | | [place] [address] | | | | | | [phone] | | | | | | | | +--------+ + + + + | 05/01/ | Procedure | Cardiology | | | | 2019 | visit | | | | +--------+ + + + + | 05/01/ | Office | Cardiology | Silvia, | | | 2019 | Visit | | [address] | | | | | | [place], | | | | | | [place] [address] | | | | | | [phone] | | | | | | | | +--------+ + + + + | 05/21/ | Implant | Cardiology | Daljit Singletary, | Remote Device | 2019 | Monitor | | [address] [place] | Interrogation | | | | | [place], | (Primary Dx); | | | | | [place] [address] | Pacemaker; | | | | | [phone] | Sinoatrial node | | | | | | dysfunction (HCC) | | | | | | with symptomatic | | | | | | bradycardia | +--------+ + + + + documented as of this encounter Visit Diagnoses Not on filedocumented in this encounter"
--- OUTSIDE RECORDS SUMMARY | ~2020-04-15 | XMS | Encounter Summary ---
Demographics + + + | Address | [address] | | | [place] [address] | + + + | Home Phone [...] Providers + +------+ + | Care Robotic Welder Name | Role | Phone | [...] + + | 01/03/ | Telephone | [facility] | Emmanuel Daniel MD | Results, Pathology | | 2018 | | GASTROENTEROLOGY | [address] [place] | (egd,colon) | | | | [address] [place] | [address] [place], [place] | | | | | [address] [place], [place] | [address] | | | | | [address] | | | | | | [phone] | | | +--------+ + + + [...] | | | | | | [place] [address] | | | | | | [phone] | | | | | | | | +--------+ + + + + | 05/01/ | Procedure | Cardiology | | | | 2020 | visit | | | | +--------+ + + + + | 06/10/ | Office | Cardiology | [place], | | | 2019 | Visit | | [address] | | | | | | [place], | | | | | | [place] [address] | | | | | | [phone] | | | | | | | | +--------+ + + + + | 05/21/ | Implant | Cardiology | Daljit Singletary, | Remote Device | 2019 | Monitor | | [address] | Interrogation | | | | | [place], | (Primary Dx); | | | | | [place] [address] | Pacemaker; | | | | | [phone] | Sinoatrial node | | | | | | dysfunction (HCC) | | | | | | with symptomatic | | | | | | bradycardia | +--------+ + + + + documented as of this encounter Visit Diagnoses Not on filedocumented in this encounter"
--- OUTSIDE RECORDS SUMMARY | ~2020-04-15 | XMS | Encounter Summary ---
Demographics + + + | Address | [address] [place] [address] [address] | | | [place] [address] | + + + | Home Phone [...] [place] | | | | | [address] | | + + + + + Care Team Providers + +------+ + | Care Post Office Clerk Name | Role | Phone | [...] | | | | | unspecified | [address] | | | | | | type Rectal | Ave | | | | | | bleeding | [facility] [place] | | | | | | Procedures | [address] | | | | | | CONSULT TO | Phone: | | | | | | GASTROENTERO | [phone] | | | | | | LOGY | Fax: | | | | | | | [phone] | | + +--------+ + + + [...] | | | | | Procedures | [place], [place] | [facility] | | | | | CONSULT TO | [address] | Health and | | | | | ENDOSCOPY | Phone: | Healing, | | | | | UNIT: | [phone] | Building [address] | | | | | BOWEL | Fax: | [place], [place] | | | | | CAPSULE | [phone] | [address] | | | | | ENDOSCOPY | | Phone: | | | | | | | [phone] | | | | | | | Fax: | | | | | | | [phone] | + +--------+ + + + + [...] | | | | | bleeding | [place], [place] | [address] | | | | | Procedures | [address] | for Health | | | | | CONSULT TO | Phone: | and Healing, | | | | | ENDOSCOPY | [phone] | Building 2 | | | | | UNIT: | Fax: | [place], [place] | | | | | COLONOSCOPY | [phone] | [address] | | | | | | | Phone: | | | | | | | [phone] | | | | | | | Fax: | | | | | | | [phone] | +--------+--------+ + + + + Reason [...] | Other | | 2020 | | [place] at [facility] [address] | MD [address] | | | | | [address] | [facility] [place] | | | | | Mailcode: [place] | [address] | | | | | for Health and | [phone] | | | | | [facility], [facility] 2 | | | | | | [place], [place] | | | | | | [address] | | | | | | [phone] | | | +--------+ + + + [...]
--- OUTSIDE RECORDS SUMMARY | ~2020-04-15 | XMS | Encounter Summary ---
Demographics + + + | Address | [address] | | | [place] [address] | + + + | Home Phone [...] Providers + +------+ + | Care Steam Blocker Name | Role | Phone | [...] | | | | CENTER [address] | [place], [place] | insufficiency | | | | [place], [place] | [address] | | | | | [address] | | | | | | [phone] | | | +--------+ + + + [...] + + + +---------+ + + | Marrero-3 Fatty | CAPS, one capsule by | [...] | | | | | | | #[id number], exp 07/2016 | | | | | [...] | | | | | | [place] [address] | | | | | | [phone] | | | | | | | | +--------+ + + + + | 05/01/ | Procedure | Cardiology | | | | 2019 | visit | | | | +--------+ + + + + | 05/01/ | Office | Cardiology | [place], | | | 2019 | Visit | | PARISA [address] | | | | | | [place], | | | | | | [place] [address] | | | | | | [phone] | | | | | | | | +--------+ + + + + | 05/21/ | Implant | Cardiology | Daljit Singletary, | Remote Device | | 2019 | Monitor | | [address] [place] | Interrogation | | | | | [place], | (Primary Dx); | | | | | [place] [address] | Pacemaker; | | | | | [phone] | Sinoatrial node | | | | [...]
--- OUTSIDE RECORDS SUMMARY | ~2020-04-15 | XMS | Encounter Summary ---
Demographics + + + | Address | [address] | | | [place] [address] | + + + | Home Phone [...] Providers + +------+ + | Care Computer Trainer Name | Role | Phone | [...] [address] | | | | | [place], | [place], | | | | | [place] [address] | [place] [address] | | | | | [phone] | [phone] | | | | | | | [...] W | | | | | | [place], | | | | | | [place] [address] | | | | | | [phone] | | | | | | | | +--------+ + + + + | 05/01/ | Procedure | Cardiology | | | | 2019 | visit | | | | +--------+ + + + + | 05/01/ | Office | Cardiology | [place], | | | 2019 | Visit | | [address] | | | | | | [place], | | | | | | [place] [address] | | | | | | [phone] | | | | | | | | +--------+ + + + + | 05/21/ | Implant | Cardiology | Daljit Singletary, | Remote Device | | 2020 | Monitor | | [address] [facility] | Interrogation | | | | | [place], | (Primary Dx); | | | | | [place] [address] | Pacemaker; | | | | | [phone] | Sinoatrial node | | | | [...]
--- OUTSIDE RECORDS SUMMARY | ~2020-04-15 | XMS | Encounter Summary ---
Demographics + + + | Address | [address] | | | [place] [address] | + + + | Home Phone [...] + +------+ + | Care Pest Control Applicator Name | Role | Phone | + +------+ + | Kirk French MD | PCP | | + +------+ + Encounter Details +--------+ + + + + | Date | Type | Department | Care Team | Description | +--------+ + + + + | 06/19/ | Orders Only | [facility] | Fabrice Hylton, | Abnormal weight | | 2019 | | SYSTEM GENERIC OP | MD [address] | loss; Anxiety | | | | CONVERSION [address] | [address] [place], [place] | disorder; Chronic | | | | [address] [place], [place] | [address] | pain syndrome; | | | | [address] | | Obesity; Neuralgia | | | | [phone] | | and neuritis, | | | [...] | | | | | | [place] [address] | | | | | | [phone] | | | | | | | | +--------+ + + + + | 05/01/ | Procedure | Cardiology | | | | 2019 | visit | | | | +--------+ + + + + | 05/01/ | Office | Cardiology | [place]via, | | | 2019 | Visit | | [address] | | | | | | [place], | | | | | | [place] [address] | | | | | | [phone] | | | | | | | | +--------+ + + + + | 05/21/ | Implant | Cardiology | Daljit Singletary, | Remote Device | 2019 | Monitor | | [address] [place] [place] | Interrogation | | | | | [place], | (Primary Dx); | | | | | [place] [address] | Pacemaker; | | | | | [phone] | Sinoatrial node | | | | [...]
--- OUTSIDE RECORDS SUMMARY | ~2020-04-15 | XMS | Encounter Summary ---
Demographics + + + | Address | [address] | | | [place] [address] | + + + | Home Phone [...] Providers + +------+ + | Care Insole Lip Turner Name | Role | Phone | [...] + + | 05/14/ | Office | [facility] | [place], | Coronary artery | | 2013 | Visit | CARDIOLOGY [address] | [address] [address] | disease (Primary | | | | [place], | [place], | Dx); Hypertension; | | | | [place] [address] | [place] [address] | Hyperlipidemia; | | | | [phone] | [phone] | Syncope; Other chest | | | [...] needed for Chest pain. 25 tablet 12 [place]-3 Fatty Acids (SALMON OIL-1000 PO) CAPS, one [...] cannot completely be ruled out. D. [facility] 12/25/13, shows noncritical coronary artery disease, [...] exercising. He is in class II of [place] [employer] functional class. There are no [...] to go back in 3 days to [place] for an attempt of ablation under general [...] palpitations.. He is in class II of [place] [employer] functional class. There are no [...] made to ensure accuracy; however, inadvertent computerized photography instructor errors may be pre sent. Electronically signed [...] | | | | | [place], | | | | | | [place] [address] | | | | | | [phone] | | | | | | | | +--------+ + + + + | 05/01/ | Procedure | Cardiology | | | | 2019 | visit | | | | +--------+ + + + + | 05/01/ | Office | Cardiology | Silvia, | | | 2019 | Visit | | [address] | | | | | | [place], | | | | | | [place] [address] | | | | | | [phone] | | | | | | | | +--------+ + + + + | 05/21/ | Implant | Cardiology | Dalijt Singletary, | Remote Device | | 2019 | Monitor | | [address] [facility] | Interrogation | | | | | [place], | (Primary Dx); | | | | | [place] [address] | Pacemaker; | | | | | [phone] | Sinoatrial node | | | | [...] of unspecified type of | | vessel, [place] or graft | + + | Hypertension Unspecified essential hypertension | + + | Hyperlipidemia Other and unspecified hyperlipidemia | + + | Syncope Syncope and collapse | + + | Other chest pain | + + | Chest pain Chest pain, unspecified | + + documented in this encounter
--- OUTSIDE RECORDS SUMMARY | ~2020-04-15 | XMS | Encounter Summary ---
Demographics + + + | Address | [address] | | | [place] [address] | + + + | Home Phone [...] Providers + +------+ + | Care Media Coordinator Name | Role | Phone | [...] 2019 | | GASTROENTEROLOGY | [address] [place] [place] | Recommendations | | | | [address] [place] | [address] [place], [place] | | | | | [address] [place], [place] | [address] | | | | | [address] | | | | | | [phone] | | | +--------+ + + + [...] | | | | | | [place] [address] | | | | | | [phone] | | | | | | | | +--------+ + + + + | 05/01/ | Procedure | Cardiology | | | | 2019 | visit | | | | +--------+ + + + + | 05/01/ | Office | Cardiology | [place]via, | | | 2019 | Visit | | PARISA Vernon [address] | | | | | | [place], | | | | | | [place] [address] | | | | | | [phone] | | | | | | | | +--------+ + + + + | 05/21/ | Implant | Cardiology | Daljit Singletary, | Remote Device | 2019 | Monitor | | [address] [facility] | Interrogation | | | | | [place], | (Primary Dx); | | | | | [place] [address] | Pacemaker; | | | | | [phone] | Sinoatrial node | | | | | | dysfunction (HCC) | | | | | | with symptomatic | | | | | | bradycardia | +--------+ + + + + documented as of this encounter Visit Diagnoses Not on filedocumented in this encounter"
--- OUTSIDE RECORDS SUMMARY | ~2020-04-15 | XMS | Encounter Summary ---
Demographics + + + | Address | [address] | | | [place] [address] | + + + | Home Phone [...] Providers + +------+ + | Care Green Pipefitter Name | Role | Phone | + +------+ + PCP | Unavailable | + +------+ + Encounter Details +--------+ + + + + | Date | Type | Department | Care Team | Description | +--------+ + + + + | 03/08/ | [facility] | [facility] | Emmanuel Danile MD | | | 2006 | Encounter | MED CTR GENERIC OP | [address] [place] | | | | | CONV DEPT [address] | [address] [place] | | | | | [place], | [address] | | | | | [place] [address] | | | | | | [phone] | | | +--------+ + + + [...] W | | | | | | [place], | | | | | | [place] [address] | | | | | | [phone] | | | | | | | | +--------+ + + + + | 05/01/ | Procedure | Cardiology | | | | 2019 | visit | | | | +--------+ + + + + | 05/01/ | Office | Cardiology | [place], | | | 2019 | Visit | | [address] | | | | | | [place], | | | | | | [place] [address] | | | | | | [phone] | | | | | | | | +--------+ + + + + | 05/21/ | Implant | Cardiology | Daljit Singletary, | Remote Device | 2019 | Monitor | | [address] [place] [place] | Interrogation | | | | | [place], | (Primary Dx); | | | | | [place] [address] | Pacemaker; | | | | | [phone] | Sinoatrial node | | | | | | dysfunction (HCC) | | | | | | with symptomatic | | | | | | bradycardia | +--------+ + + + + documented as of this encounter Visit Diagnoses Not on filedocumented in this encounter"
--- OUTSIDE RECORDS SUMMARY | ~2020-04-15 | XMS | Encounter Summary ---
Demographics + + + | Address | [address] | | | [place] [address] | + + + | Home Phone [...] Providers + +------+ + | Care Senior Planning Manager Name | Role | Phone [...] W | | | | | [place], | [place], | | | | | [place] [address] | [place] [address] | | | | | [phone] | [phone] | | | | | | | [...] | | | | | | [place] [address] | | | | | | [phone] | | | | | | | [...] | | | | | | [place] [address] | | | | | | [phone] | | | | | | | | +--------+ + + + + | 05/21/ | Implant | Cardiology | Daljit Singletary, | Remote Device | | 2019 | Monitor | | [address] [place] | Interrogation | | | | | [place], | (Primary Dx); | | | | | [place] [address] | Pacemaker; | | | | | [phone] | Sinoatrial node | | | | | | dysfunction (HCC) | | | | | | with symptomatic | | | | | | bradycardia | +--------+ + + + + documented as of this encounter Visit Diagnoses Not on filedocumented in this encounter"
--- OUTSIDE RECORDS SUMMARY | ~2020-04-15 | XMS | Encounter Summary ---
Demographics + + + | Address | [address] | | | [place] [address] | + + + | Home Phone [...] Providers + +------+ + | Care Block Greaser Name | Role | Phone | [...] | | CARDIOLOGY [address] | Janeen LEVEL VIAL CURVATURE GAUGER [address] | | | | | [place], | [place], | | | | | [place] [address] | [place] [address] | | | | | [phone] | [phone] | | | | | | | [...] W | | | | | | [place], | | | | | | [place] [address] | | | | | | [phone] | | | | | | | | +--------+ + + + + | 05/01/ | Procedure | Cardiology | | | | 2019 | visit | | | | +--------+ + + + + | 05/01/ | Office | Cardiology | Silvia, | | | 2019 | Visit | | [address] | | | | | | [place], | | | | | | [place] [address] | | | | | | [phone] | | | | | | | | +--------+ + + + + | 05/21/ | Implant | Cardiology | Daljit Singletary, | Remote Device | 2019 | Monitor | | [facility] [place] | Interrogation | | | | | [place], | (Primary Dx); | | | | | [place] [address] | Pacemaker; | | | | | [phone] | Sinoatrial node | | | | | | dysfunction (HCC) | | | | | | with symptomatic | | | | | | bradycardia | +--------+ + + + + documented as of this encounter Visit Diagnoses Not on filedocumented in this encounter"
--- OUTSIDE RECORDS SUMMARY | ~2020-04-15 | XMS | Encounter Summary ---
Demographics + + + | Address | [address] | | | [place] [address] | + + + | Home Phone [...] Providers + +------+ + | Care Applications Support Lead Name | Role | Phone [...] | | | | | [place], [place] | (Fax) | | | | | [address] | | | | | | [phone] | | | +--------+ + + + [...] | | | | | | [place] [address] | | | | | | [phone] | | | | | | | | +--------+ + + + + | 05/01/ | Procedure | Cardiology | | | | 2019 | visit | | | | +--------+ + + + + | 05/01/ | Office | Cardiology | Silvia, | | | 2019 | Visit | | PARISA [address] | | | | | | [place], | | | | | | [place] [address] | | | | | | [phone] | | | | | | | | +--------+ + + + + | 05/21/ | Implant | Cardiology | Daljit Singletary, | Remote Device | | 2019 | Monitor | | [address] [place] | Interrogation | | | | | [place], | (Primary Dx); | | | | | [place] [address] | Pacemaker; | | | | | [phone] | Sinoatrial node | | | | | | dysfunction (HCC) | | | | | | with symptomatic | | | | | | bradycardia | +--------+ + + + + documented as of this encounter Visit Diagnoses Not on filedocumented in this encounter"
--- OUTSIDE RECORDS SUMMARY | ~2020-04-15 | XMS | Encounter Summary ---
Demographics + + + | Address | [address] | | | [place] [address] | + + + | Home Phone [...] | 2018 | Changes | GASTROENTEROLOGY | Radiographer Technologist | | | | | [address] [facility] | | | | | | [address] [place] | | | | | | [address] | | | | | | [phone] | | | +--------+ + + + [...] W | | | | | | [place], | | | | | | [place] [address] | | | | | | [phone] | | | | | | | | +--------+ + + + + | 05/01/ | Procedure | Cardiology | | | | 2019 | visit | | | | +--------+ + + + + | 05/01/ | Office | Cardiology | Silvia, | | | 2019 | Visit | | [address] | | | | | | [place], | | | | | | [place] [address] | | | | | | [phone] | | | | | | | | +--------+ + + + + | 05/21/ | Implant | Cardiology | Daljit Singletary, | Remote Device | | 2020 | Monitor | | [facility] | Interrogation | | | | | [place], | (Primary Dx); | | | | | [place] [address] | Pacemaker; | | | | | [phone] | Sinoatrial node | | | | | | dysfunction (HCC) | | | | | | with symptomatic | | | | | | bradycardia | +--------+ + + + + documented as of this encounter Visit Diagnoses Not on filedocumented in this encounter"
--- OUTSIDE RECORDS SUMMARY | ~2020-04-15 | XMS | Encounter Summary ---
Demographics + + + | Address | [address] | | | [place] [address] | + + + | Home Phone [...] Providers + +------+ + | Care Ditch Tender Name | Role | Phone | + +------+ + | Darion Holden DO | PCP | | + +------+ + Encounter Details +--------+ + + + + | Date | Type | Department | Care Team | Description | +--------+ + + + + | 08/05/ | Hospital | [facility] | Emmanuel Daniel MD | | | 2009 | Encounter | MED CTR XRAY [address] | [address] | | | | | [place] | [address] [place], [place] | | | | | [place] [address] | [address] | | | | | [phone] | | | +--------+ + + + [...] | | | | | | [place], | | | | | | [place] [address] | | | | | | [phone] | | | | | | | | +--------+ + + + + | 05/01/ | Procedure | Cardiology | | | | 2019 | visit | | | | +--------+ + + + + | 05/01/ | Office | Cardiology | Silvia, | | | 2019 | Visit | | [address] | | | | | | [place], | | | | | | [place] [address] | | | | | | [phone] | | | | | | | | +--------+ + + + + | 05/21/ | Implant | Cardiology | Daljit Singletary, | Remote Device | | 2019 | Monitor | | [address] [place] | Interrogation | | | | | [place], | (Primary Dx); | | | | | [place] [address] | Pacemaker; | | | | | [phone] | Sinoatrial node | | | | | | dysfunction (HCC) | | | | | | with symptomatic | | | | | | bradycardia | +--------+ + + + + documented as of this encounter Visit Diagnoses Not on filedocumented in this encounter"
--- OUTSIDE RECORDS SUMMARY | ~2020-04-15 | XMS | Encounter Summary ---
Demographics + + + | Address | [address] | | | [place] [address] | + + + | Home Phone [...] Providers + +------+ + | Care Linux Consultant Name | Role | Phone | [...] Refill | | 2013 | | [facility]IC[facility] [place] | DO [address] | | | | | [address] | [place] | | | | | [place] | [address] | | | | | [address] | | | | | | [phone] | | | +--------+--------+ + + + [...] | | | | | | [place] [address] | | | | | | [phone] | | | | | | | [...] | | | | | | [place] [address] | | | | | | [phone] | | | | | | | | +--------+ + + + + | 05/21/ | Implant | Cardiology | Daljit Singletary, | Remote Device | | 2019 | Monitor | | [address] [facility] | Interrogation | | | | | [place], | (Primary Dx); | | | | | [place] [address] | Pacemaker; | | | | | [phone] | Sinoatrial node | | | | | | dysfunction (HCC) | | | | | | with symptomatic | | | | | | bradycardia | +--------+ + + + + documented as of this encounter Visit Diagnoses Not on filedocumented in this encounter"
--- OUTSIDE RECORDS SUMMARY | ~2020-04-15 | XMS | Encounter Summary ---
Demographics + + + | Address | [address] | | | [place] [address] | + + + | Home Phone [...] Providers + +------+ + | Care Natural Resources Faculty Member Name | Role | Phone [...] | Refill | [facility] [place] | Moran, | Medication Refill | | 2014 | | CARDIOLOGY [address] | PARISA [place] [address] | | | | | [place], | [place], | | | | | [place] [address] | [place] [address] | | | | | [phone] | [phone] | | | | | | | [...] W | | | | | | [place], | | | | | | [place] [address] | | | | | | [phone] | | | | | | | | +--------+ + + + + | 05/01/ | Procedure | Cardiology | | | | 2019 | visit | | | | +--------+ + + + + | 05/01/ | Office | Cardiology | Silvia, | | | 2019 | Visit | | [address] W | | | | | | [place], | | | | | | [place] [address] | | | | | | [phone] | | | | | | | | +--------+ + + + + | 05/21/ | Implant | Cardiology | Daljit Singletary, | Remote Device | | 2019 | Monitor | | [facility] | Interrogation | | | | | [place], | (Primary Dx); | | | | | [place] [address] | Pacemaker; | | | | | [phone] | Sinoatrial node | | | | | | dysfunction (HCC) | | | | | | with symptomatic | | | | | | bradycardia | +--------+ + + + + documented as of this encounter Visit Diagnoses Not on filedocumented in this encounter"
--- OUTSIDE RECORDS SUMMARY | ~2020-04-15 | XMS | Encounter Summary ---
Demographics + + + | Address | [address] [place] [address] [address] | | | [place] [address] | + + + | Home Phone [...] [place] | | | | | [address] | | + + + + + Care Team Providers + +------+ + | Care Recovery Engineer Name | Role | Phone | [...] | | 2019 | | Center at [facility] [address] | MD [address] | | | | | [address] | [place], [place] | | | | | Mailcode: Center | [address] | | | | | [facility] and | [phone] | | | | | [facility] 2 | | | | | | [place], [place] | | | | | | [address] | | | | | | [phone] | | | +--------+ + + + [...]
--- OUTSIDE RECORDS SUMMARY | ~2020-04-15 | XMS | Encounter Summary ---
Demographics + + + | Address | [address] | | | [place] [address] | + + + | Home Phone [...] + +------+ + | Care Front Office Clerk Name | Role | Phone [...] [address] | | | | | | [place], [place] | (Fax) | | | | | [address] | | | | | | [phone] | | | +--------+ + + + [...] | | | | | | [place] [address] | | | | | | [phone] | | | | | | | | +--------+ + + + + | 05/01/ | Procedure | Cardiology | | | | 2019 | visit | | | | +--------+ + + + + | 05/01/ | Office | Cardiology | Silvia, | | | 2019 | Visit | | PARISA Vernon [address] | | | | | | [place], | | | | | | [place] [address] | | | | | | [phone] | | | | | | | | +--------+ + + + + | 05/21/ | Implant | Cardiology | Daljit Singletary, | Remote Device | | 2019 | Monitor | | [address] [place] | Interrogation | | | | | [place], | (Primary Dx); | | | | | [place] [address] | Pacemaker; | | | | | [phone] | Sinoatrial node | | | | | | dysfunction (HCC) | | | | | | with symptomatic | | | | | | bradycardia | +--------+ + + + + documented as of this encounter Visit Diagnoses Not on filedocumented in this encounter"
--- OUTSIDE RECORDS SUMMARY | ~2020-04-15 | XMS | Encounter Summary ---
Demographics + + + | Address | [address] | | | [place] [address] | + + + | Home Phone [...] [address] | | | | | [place], | [place], | | | | | [place] [address] | [place] [address] | | | | | [phone] | [phone] | | | | | | | [...] | | | | | | [place] [address] | | | | | | [phone] | | | | | | | | +--------+ + + + + | 05/01/ | Procedure | Cardiology | | | | 2019 | visit | | | | +--------+ + + + + | 05/01/ | Office | Cardiology | Silvia, | | | 2019 | Visit | | PARISA Vernon [address] | | | | | | [place], | | | | | | [place] [address] | | | | | | [phone] | | | | | | | | +--------+ + + + + | 05/21/ | Implant | Cardiology | Daljit Singletary, | Remote Device | 2019 | Monitor | | [address] [place] | Interrogation | | | | | [address], | (Primary Dx); | | | | | [place] [address] | Pacemaker; | | | | | [phone] | Sinoatrial node | | | | [...] | [address] | [place] | | | [facility] | | [address] | | [...] | | | LAB | | | [place], | | | | | | External [...] | [address] | [place] | | | [facility] | | [address] | | [...]
--- OUTSIDE RECORDS SUMMARY | ~2020-04-15 | XMS | Encounter Summary ---
Demographics + + + | Address | [address] [place] [address] | | | [place] [address] | + + + | Home Phone [...] Team Providers + +------+ + | Care Free Lance Model Name | Role | Phone | + [...] | | CARDIOLOGY [address] | Janeen, SOCIAL SERVICE DIRECTOR [address] | reading) | | | | [place], | [place], | | | | | [place] [address] | [place] [address] | | | | | [phone] | [phone] | | | | | | | [...] W | | | | | | [place], | | | | | | [place] [address] | | | | | | [phone] | | | | | | | | +--------+ + + + + | 05/01/ | Procedure | Cardiology | | | | 2019 | visit | | | | +--------+ + + + + | 05/01/ | Office | Cardiology | Silvia, | | | 2019 | Visit | | [address] | | | | | | [place], | | | | | | [place] [address] | | | | | | [phone] | | | | | | | | +--------+ + + + + | 05/21/ | Implant | Cardiology | Daljit Singletary, | Remote Device | | 2019 | Monitor | | [address] [facility] | Interrogation | | | | | [place], | (Primary Dx); | | | | | [place] [address] | Pacemaker; | | | | | [phone] | Sinoatrial node | | | | | | dysfunction (HCC) | | | | | | with symptomatic | | | | | | bradycardia | +--------+ + + + + documented as of this encounter Visit Diagnoses Not on filedocumented in this encounter"
--- OUTSIDE RECORDS SUMMARY | ~2020-04-15 | XMS | Encounter Summary ---
Demographics + + + | Address | [address] | | | [place] [address] | + + + | Home Phone [...] Team Providers + +------+ + | Care Hull Builder Name | Role | Phone | [...] [address] | | | | | [place], | [place], | | | | | [place] [address] | [place] [address] | | | | | [phone] | [phone] | | | | | | | [...] | | | | | | [place] [address] | | | | | | [phone] | | | | | | | [...] | | | | | | [place] [address] | | | | | | [phone] | | | | | | | | +--------+ + + + + | 05/21/ | Implant | Cardiology | Daljit Singletary, | Remote Device | 2019 | Monitor | | MD [place] | Interrogation | | | | | [place], | (Primary Dx); | | | | | [place] [address] | Pacemaker; | | | | | [phone] | Sinoatrial node | | | | [...] [address] | [place] | [phone] | | [facility] | | [id number] | | | - LABORATORY [...]
--- OUTSIDE RECORDS SUMMARY | ~2020-04-15 | XMS | Encounter Summary ---
Demographics + + + | Address | [address] | | | [place] [address] | + + + | Home Phone [...] Providers + +------+ + | Care Meat Cooler Name | Role | Phone | [...] + | 01/24/ | Telephone | [facility] | Daljit Singletary, | Other | | 2019 | | CARDIOLOGY [address] | MD [address] [place] | | | | | [place], | [place], | | | | | [place] [address] | [place] [address] | | | | | [phone] | [phone] | | | | | | | [...] W | | | | | | [place], | | | | | | [place] [address] | | | | | | [phone] | | | | | | | | +--------+ + + + + | 05/01/ | Procedure | Cardiology | | | | 2019 | visit | | | | +--------+ + + + + | 05/01/ | Office | Cardiology | Silvia, | | | 2019 | Visit | | [address] | | | | | | [place], | | | | | | [place] [address] | | | | | | [phone] | | | | | | | | +--------+ + + + + | 05/21/ | Implant | Cardiology | Daljit Singletary, | Remote Device | | 2019 | Monitor | | [facility] | Interrogation | | | | | [address] [place], | (Primary Dx); | | | | | [place] [address] | Pacemaker; | | | | | [phone] | Sinoatrial node | | | | | | dysfunction (HCC) | | | | | | with symptomatic | | | | | | bradycardia | +--------+ + + + + documented as of this encounter Visit Diagnoses Not on filedocumented in this encounter"
--- OUTSIDE RECORDS SUMMARY | ~2020-04-15 | XMS | Encounter Summary ---
Demographics + + + | Address | [address] | | | [place] [address] | + + + | Home Phone [...] Team Providers + +------+ + | Care Grass Farmer Name | Role | Phone | [...] | 06/22/ | Telephone | [facility] [place] [facility] | Vasiliy Michael Kelsey, | Eye Problem | | 2012 | | [facility] [place] | DO [address] | | | | | [address] | [place] | | | | | [place] | [address] | | | | | [address] | | | | | | [phone] | | | +--------+ + + + [...] W | | | | | | [place], | | | | | | [place] [address] | | | | | | [phone] | | | | | | | | +--------+ + + + + | 05/01/ | Procedure | Cardiology | | | | 2019 | visit | | | | +--------+ + + + + | 05/01/ | Office | Cardiology | Silvia, | | 2019 | Visit | | PARISA [address] W | | | | | | [place], | | | | | | [place] [address] | | | | | | [phone] | | | | | | | | +--------+ + + + + | 05/21/ | Implant | Cardiology | Daljit Singletary, | Remote Device | | 2019 | Monitor | | [facility] | Interrogation | | | | | [place], | (Primary Dx); | | | | | [place] [address] | Pacemaker; | | | | | [phone] | Sinoatrial node | | | | | | dysfunction (HCC) | | | | | | with symptomatic | | | | | | bradycardia | +--------+ + + + + documented as of this encounter Visit Diagnoses Not on filedocumented in this encounter"
--- OUTSIDE RECORDS SUMMARY | ~2020-04-15 | XMS | Encounter Summary ---
Demographics + + + | Address | [address] | | | [place] [address] | + + + | Home Phone [...] Providers + +------+ + | Care Audio Production Manager Name | Role | Phone [...] | on | GASTROENTEROLOGY | [address] [place], [place] | | | | | [address] | [address] [place], [place] | | | | | [address] [place], [place] | [address] | | | | | [address] | | | | | | [phone] | | | +--------+ + + + [...] | | | | | | [place] [address] | | | | | | [phone] | | | | | | | | +--------+ + + + + | 05/01/ | Procedure | Cardiology | | | | 2019 | visit | | | | +--------+ + + + + | 05/01/ | Office | Cardiology | Silvia, | | | 2019 | Visit | | PARISA [place] [address] | | | | | | [place], | | | | | | [place] [address] | | | | | | [phone] | | | | | | | | +--------+ + + + + | 05/21/ | Implant | Cardiology | Daljit Singletary, | Remote Device | | 2019 | Monitor | | [address] [facility] | Interrogation | | | | | [address] [place], | (Primary Dx); | | | | | [place] [address] | Pacemaker; | | | | | [phone] | Sinoatrial node | | | | | | dysfunction (HCC) | | | | | | with symptomatic | | | | | | bradycardia | +--------+ + + + + documented as of this encounter Visit Diagnoses Not on filedocumented in this encounter"
--- OUTSIDE RECORDS SUMMARY | ~2020-04-15 | XMS | Encounter Summary ---
Demographics + + + | Address | [address] | | | [place] [address] | + + + | Home Phone [...] Providers + +------+ + | Care Screen Roller Name | Role | Phone | [...] | CARDIOLOGY [address] | MD [address] [place] | | | | | [place], | [place], | | | | | [place] [address] | [place] [address] | | | | | [phone] | [phone] | | | | | | | [...] | | | | | | [place] [address] | | | | | | [phone] | | | | | | | [...] | | | | | | [place] [address] | | | | | | [phone] | | | | | | | | +--------+ + + + + | 06/30/ | Implant | Cardiology | Daljit Singletary, | Remote Device | | 2019 | Monitor | | [address] [facility] | Interrogation | | | | | [address] [place], | (Primary Dx); | | | | | [place] [address] | Pacemaker; | | | | | [phone] | Sinoatrial node | | | | | | dysfunction (HCC) | | | | | | with symptomatic | | | | | | bradycardia | +--------+ + + + + documented as of this encounter Visit Diagnoses Not on filedocumented in this encounter"
--- OUTSIDE RECORDS SUMMARY | ~2020-04-15 | XMS | Encounter Summary ---
Demographics + + + | Address | [address] | | | [place] [address] | + + + | Home Phone [...] Providers + +------+ + | Care Cooker Soda Name | Role | Phone | + [...] W | Dx) | | | | [place] [address] | [address] [place] | | | | | [place], [place] | [place] [address] | | | | | [address] | [phone] | | | | | [phone] | | | +--------+ + + + [...] + + + +---------+ + + | Winlock-3 Fatty | CAPS, one capsule by | [...] W | | | | | | [address], | | | | | | [place] [address] | | | | | | [phone] | | | | | | | | +--------+ + + + + | 05/01/ | Procedure | Cardiology | | | | 2019 | visit | | | | +--------+ + + + + | 05/01/ | Office | Cardiology | Silvia, | | | 2019 | Visit | | PARISA Vernon [address] | | | | | | [place], | | | | | | [place] [address] | | | | | | [phone] | | | | | | | | +--------+ + + + + | 05/21/ | Implant | Cardiology | Daljit Singletary, | Remote Device | | 2019 | Monitor | | [address] | Interrogation | | | | | [place], | (Primary Dx); | | | | | [place] [address] | Pacemaker; | | | | | [phone] | Sinoatrial node | | | | [...] W?MRN: | | | | | | [id number] | | | [id number] | | | his | | | [...] | | | ent/60 | | | [id number] | | | -[id number]- | | | [...] | | | St. | | | [place] | | | y H. | | [...] | | | St. | | | [place] | | | y H. | | [...] | | | St. | | | [place] | | | y H. | | [...] | | | St. | | | [place] | | | y H. | | [...] | | | St. | | | [place] | | | y | | | [...] | | | ext. | | | [address] | | | or go | | [...] [address] | [place] | [phone] | | [facility] | | [address] | | | - LABORATORY | | [...] ST. | [address] | [place], [place] | [phone] | | [facility] | | [address] | | | - LABORATORY | | [...] | | | FILTRATION | mL/min/1.73m2 | [facility] | | | OMANI | RATE,ESTIMATED | | MEDICAL | | | | mL/min/1.62c1Uswq than | | CENTER - | | [...] + | [facility] | [address] | [place] | [phone] | | [facility] | | [address] | | | - LABORATORY | | [...] [address] | [place] | [phone] | | [facility] | | [address] | | | - LABORATORY | | | | + + + + + documented in this encounter Visit Diagnoses + + | Diagnosis | + + | Bronchitis - Primary Bronchitis, not specified as acute or chronic | + + documented in this encounter"
--- OUTSIDE RECORDS SUMMARY | ~2020-04-15 | XMS | Encounter Summary ---
Demographics + + + | Address | [address] | | | [place] [address] | + + + | Home Phone [...] Providers + +------+ + | Care Business Relationship Manager Name | Role | Phone [...] | RN | | | | | [place], | | | | | | [place] [address] | | | | | | [phone] | | | +--------+ + + + [...] | | | | | | [place] [address] | | | | | | [phone] | | | | | | | [...] | | | | | | [place] [address] | | | | | | [phone] | | | | | | | | +--------+ + + + + | 05/21/ | Implant | Cardiology | Daljit Singletary, | Remote Device | | 2019 | Monitor | | MD [address] [place] | Interrogation | | | | | [place], | (Primary Dx); | | | | | [place] [address] | Pacemaker; | | | | | [phone] | Sinoatrial node | | | | | | dysfunction (HCC) | | | | | | with symptomatic | | | | | | bradycardia | +--------+ + + + + documented as of this encounter Visit Diagnoses Not on filedocumented in this encounter"
--- OUTSIDE RECORDS SUMMARY | ~2020-04-15 | XMS | Encounter Summary ---
Demographics + + + | Address | [address] | | | [place] [address] | + + + | Home Phone [...] Providers + +------+ + | Care Cover Cutter Name | Role | Phone | [...] | Interrogation | | | | [place], | [place], | (Primary Dx); | | | | [place] [address] | [place] [address] | Presence of | | | | [phone] | [phone] | permanent cardiac | | | | [...] | | | | | | [place] [address] | | | | | | [phone] | | | | | | | | +--------+ + + + + | 05/01/ | Procedure | Cardiology | | | | 2019 | visit | | | | +--------+ + + + + | 05/01/ | Office | Cardiology | Silvia, | | | 2019 | Visit | | PARIAS Vernon [address] | | | | | | [place], | | | | | | [place] [address] | | | | | | [phone] | | | | | | | | +--------+ + + + + | 05/21/ | Implant | Cardiology | Daljit Singletary, | Remote Device | 2019 | Monitor | | [facility] | Interrogation | | | | | [place], | (Primary Dx); | | | | | [place] [address] | Pacemaker; | | | | | [phone] | Sinoatrial node | | | | [...] remote PDF scanned into | | | [facility] for remote interrogation results. Data [...]
--- OUTSIDE RECORDS SUMMARY | ~2020-04-15 | XMS | Encounter Summary ---
Demographics + + + | Address | [address] | | | [place] [address] | + + + | Home Phone [...] Providers + +------+ + | Care Insole And Outsole Splitter Name | Role | Phone | + +------+ + PCP | Unavailable | + +------+ + Encounter Details +--------+ + + + + | Date | Type | Department | Care Team | Description | +--------+ + + + + | 10/26/ | Hospital | [facility] | | | | 1994 | Encounter | [facility] EM[facility]Y | | | | | | CENTER [address] | | | | | | [place] | | | | | | [address] | | | | | | [phone] | | | +--------+ + + + [...] | | | | | | [place] [address] | | | | | | [phone] | | | | | | | | +--------+ + + + + | 05/01/ | Procedure | Cardiology | | | | 2019 | visit | | | | +--------+ + + + + | 05/01/ | Office | Cardiology | Silvia, | | | 2019 | Visit | | PARISA Vernon W | | | | | | [place], | | | | | | [place] [address] | | | | | | [phone] | | | | | | | | +--------+ + + + + | 05/21/ | Implant | Cardiology | Daljit Singletary, | Remote Device | 2019 | Monitor | | [address] [place] | Interrogation | | | | | [place], | (Primary Dx); | | | | | [place] [address] | Pacemaker; | | | | | [phone] | Sinoatrial node | | | | | | dysfunction (HCC) | | | | | | with symptomatic | | | | | | bradycardia | +--------+ + + + + documented as of this encounter Visit Diagnoses Not on filedocumented in this encounter"
--- OUTSIDE RECORDS SUMMARY | ~2020-04-15 | XMS | Encounter Summary ---
Demographics + + + | Address | [address] | | | [place] [address] | + + + | Home Phone [...] Providers + +------+ + | Care Banquet Bartender Name | Role | Phone | + [...] 2019 | | GASTROENTEROLOGY | [address], [place] | | | | | [address] [place] | [address] [place], [place] | | | | | [address] [place], [place] | [address] | | | | | [address] | | | | | | [phone] | | | +--------+ + + + [...] | | | | | | [place] [address] | | | | | | [phone] | | | | | | | | +--------+ + + + + | 05/01/ | Procedure | Cardiology | | | | 2019 | visit | | | | +--------+ + + + + | 05/01/ | Office | Cardiology | Silvia, | | | 2019 | Visit | | PARISA Vernon [address] | | | | | | [place], | | | | | | [place] [address] | | | | | | [phone] | | | | | | | | +--------+ + + + + | 05/21/ | Implant | Cardiology | Daljit Singletary, | Remote Device | 2019 | Monitor | | [address] | Interrogation | | | | | [place], | (Primary Dx); | | | | | [place] [address] | Pacemaker; | | | | | [phone] | Sinoatrial node | | | | [...]
--- OUTSIDE RECORDS SUMMARY | ~2020-04-15 | XMS | Encounter Summary ---
Demographics + + + | Address | [address] | | | [place] [address] | + + + | Home Phone [...] [facility] | | [...] Providers + +------+ + | Care Psych Specialist Name | Role | Phone | [...] | | | pain | [address] | [address] | | | | | Procedures | St [place] | [place], | | | | | [place] Nuclear | [place], [place] | [place] | | | | | Stress Test | [address] | [address] | | | | | (Vasodilator | Phone: | Phone: | | | | | ) CHG | [phone] | [phone] | | | | | MYOCARDIAL | Fax: | Fax: | | | | | SPECT | [phone] | [phone] | | | | | MULTIPLE | [...] | | CARDIOLOGY [address] | MOLD PRESSER [address] | interactions, chest | | | | [place], | [place] | pain) | | | | [place] [address] | [address] | | | | | [phone] | | | +--------+ + + + [...] | | | | | | [place] [address] | | | | | | [phone] | | | | | | | [...] | | | | | | [place] [address] | | | | | | [phone] | | | | | | | | +--------+ + + + + | 05/21/ | Implant | Cardiology | SunshinecherelleDaljit, | Remote Device | | 2019 | Monitor | | MD [address] [place] | Interrogation | | | | | [place], | (Primary Dx); | | | | | [place] [address] | Pacemaker; | | | | | [phone] | Sinoatrial node | | | | [...] | + + + | [facility] | [place] | | Department [address] [facility] [place] | [place] | | [ rep [address]] [ rep [facility] | | st [facility]] Signed | - IMAGING | | | | | Patient Name: MOE GAY | | | Physician: JACKLYN : 1960 Age: 53 Sex: M Unit | | | #: [id number] Exam Date: 12/06/13 Location: | | | [facility] Report #: [id number] Page: | | | %(RAD)RES..mtdd.print.filter("pg") of %(RAD) | | | RES..mtdd.print.filter("tpg") | | | | | | Accession Number: [id number] | | | PERSANTINE SESTAMIBI STRESS TEST, [...] Transcribed Date/Time: 12/07/2013 08:18 | | | Passenger Tire Builder: <<Signature on File>> | | | | | | Daljit Singletary MD [facility] FASE12/07/13 1321 <Electronically signed | | | by Daljit Singletary MD, FAC, FACP, FASNanette, [facility]> Daljit | | | MD [employer] [facility]ASE 12/07/13 0701 Passenger Tire Builder: [employer] | | | [id number]/16/14 0818 [place] | | + + + + + + + + | Performing | Address | City/State/Zipcode | Phone Number | | Organization | | | | + + + + + | [facility] | [address] | [place] | [phone] | | [facility] | | [address] | | | - IMAGING | | | | + + + + + documented in this encounter Visit Diagnoses + + | Diagnosis | + + | Other chest pain - Primary | + + documented in this encounter
--- OUTSIDE RECORDS SUMMARY | ~2020-04-15 | XMS | Encounter Summary ---
Demographics + + + | Address | [address] | | | [place] [address] | + + + | Home Phone [...] Providers + +------+ + | Care Personal Chef Name | Role | Phone | [...] + | 01/02/ | Telephone | [facility] | Daljit Singletary, | Other (chest pain) | | 2018 | | CARDIOLOGY [address] | MD [address] [place] | | | | | [place], | [place], | | | | | [place] [address] | [place] [address] | | | | | [phone] | [phone] | | | | | | | [...] | | | | | | [place] [address] | | | | | | [phone] | | | | | | | | +--------+ + + + + | 05/01/ | Procedure | Cardiology | | | | 2019 | visit | | | | +--------+ + + + + | 05/01/ | Office | Cardiology | [place], | | | 2019 | Visit | | [address] | | | | | | [place], | | | | | | [place] [address] | | | | | | [phone] | | | | | | | | +--------+ + + + + | 05/21/ | Implant | Cardiology | Daljit Singletary, | Remote Device | | 2019 | Monitor | | MD [address]iqu[address] | Interrogation | | | | | [place] [place], | (Primary Dx); | | | | | [place] [address] | Pacemaker; | | | | | [phone] | Sinoatrial node | | | | | | dysfunction ([facility]) | | | | | | with symptomatic | | | | | | bradycardia | +--------+ + + + + documented as of this encounter Visit Diagnoses Not on filedocumented in this encounter"
--- OUTSIDE RECORDS SUMMARY | ~2020-04-15 | XMS | Encounter Summary ---
Demographics + + + | Address | [address] | | | [place] [address] | + + + | Home Phone [...] + +------+ + | Care Marketing Content Specialist Name | Role | Phone | + +------+ + PCP | Unavailable | + +------+ + Encounter Details +--------+ + + + + | Date | Type | Department | Care Team | Description | +--------+ + + + + | 08/17/ | [facility] | [facility] | Evan Gandara MD | | | 2005 | Encounter | MED CTR LABORATORY | [address] [facility] | | | | | [address] | [place] | | | | | [place] | [address] | | | | | [address] | | | | | | [phone] | | | +--------+ + + + [...] W | | | | | | [place], | | | | | | [place] [address] | | | | | | [phone] | | | | | | | | +--------+ + + + + | 05/01/ | Procedure | Cardiology | | | | 2019 | visit | | | | +--------+ + + + + | 05/01/ | Office | Cardiology | iSlvia | | | 2019 | Visit | | [address] | | | | | | [place], | | | | | | [place] [address] | | | | | | [phone] | | | | | | | | +--------+ + + + + | 05/21/ | Implant | Cardiology | Daljit Singletary, | Remote Device | 2019 | Monitor | | MD [address] [place] | Interrogation | | | | | [place], | (Primary Dx); | | | | | [place] [address] | Pacemaker; | | | | | [phone] | Sinoatrial node | | | | | | dysfunction (HCC) | | | | | | with symptomatic | | | | | | bradycardia | +--------+ + + + + documented as of this encounter Visit Diagnoses Not on filedocumented in this encounter"
--- OUTSIDE RECORDS SUMMARY | ~2020-04-15 | XMS | Encounter Summary ---
Demographics + + + | Address | [address] | | | [place] [address] | + + + | Home Phone [...] Team Providers + +------+ + | Care Fourth Hand Name | Role | Phone | [...] + + | 08/04/ | Telephone | [facility] | Silvia, | Other (4 week event | | 2017 | | CARDIOLOGY [address] | [place] [address] | monitor ) | | | | [place], | [place], | | | | | [place] [address] | [place] [address] | | | | | [phone] | [phone] | | | | | | | [...] | | | | | | [place] [address] | | | | | | [phone] | | | | | | | | +--------+ + + + + | 05/01/ | Procedure | Cardiology | | | | 2020 | visit | | | | +--------+ + + + + | 05/01/ | Office | Cardiology | Silvia, | | | 2019 | Visit | | [address] [address] | | | | | | [place], | | | | | | [place] [address] | | | | | | [phone] | | | | | | | | +--------+ + + + + | 05/21/ | Implant | Cardiology | Daljit Singletary, | Remote Device | 2019 | Monitor | | [address] | Interrogation | | | | | [place], | (Primary Dx); | | | | | [place] [address] | Pacemaker; | | | | | [phone] | Sinoatrial node | | | | | | dysfunction (HCC) | | | | | | with symptomatic | | | | | | bradycardia | +--------+ + + + + documented as of this encounter Visit Diagnoses Not on filedocumented in this encounter"
--- OUTSIDE RECORDS SUMMARY | ~2020-04-15 | XMS | Encounter Summary ---
Demographics + + + | Address | [address] | | | [place] [address] | + + + | Home Phone [...] Providers + +------+ + | Care Oven Dauber Name | Role | Phone | + +------+ + PCP | Unavailable | + +------+ + Encounter Details +--------+ + + + + | Date | Type | Department | Care Team | Description | +--------+ + + + + | 12/16/ | [facility] | [facility] | Naresh Mckeon | | | 2010 | Encounter | MED CTR SLEEP | MD Chaya [address] | | | | | CENTER [address] [place] | [place] | | | | | [place] | [place] [address] | | | | | [address] | [phone] | | | | | [phone] | | | +--------+ + + + [...] | | | | | | [place], | | | | | | [place] [address] | | | | | | [phone] | | | | | | | | +--------+ + + + + | 05/01/ | Procedure | Cardiology | | | | 2019 | visit | | | | +--------+ + + + + | 05/01/ | Office | Cardiology | Silvia | | | 2019 | Visit | | [address] | | | | | | [place], | | | | | | [place] [address] | | | | | | [phone] | | | | | | | | +--------+ + + + + | 05/21/ | Implant | Cardiology | Daljit Singletary, | Remote Device | 2019 | Monitor | | MD [address] [place] | Interrogation | | | | | [place], | (Primary Dx); | | | | | [place] [address] | Pacemaker; | | | | | [phone] | Sinoatrial node | | | | | | dysfunction (HCC) | | | | | | with symptomatic | | | | | | bradycardia | +--------+ + + + + documented as of this encounter Visit Diagnoses Not on filedocumented in this encounter"
--- OUTSIDE RECORDS SUMMARY | ~2020-04-15 | XMS | Encounter Summary ---
Demographics + + + | Address | [address] | | | [place] [address] | + + + | Home Phone [...] Team Providers + +------+ + | Care Six Pack Loader Operator Name | Role | Phone [...] 2015 | | CARDIOLOGY [address] | BOOM PUMP OPERATOR [address] | reprogramming/check | | | | [address], | St [place], [place] | DO NOT DELETE | | | | [place] [address] | [address] | (Primary Dx); | | | | [phone] | | Pacemaker - | | | [...] W | | | | | | [place], | | | | | | [place] [address] | | | | | | [phone] | | | | | | | | +--------+ + + + + | 05/01/ | Procedure | Cardiology | | | | 2019 | visit | | | | +--------+ + + + + | 05/01/ | Office | Cardiology | Silvia, | | | 2019 | Visit | | [address] | | | | | | [place], | | | | | | [place] [address] | | | | | | [phone] | | | | | | | | +--------+ + + + + | 05/21/ | Implant | Cardiology | Daljit Singletary, | Remote Device | | 2019 | Monitor | | [facility] | Interrogation | | | | | [place], | (Primary Dx); | | | | | [place] [address] | Pacemaker; | | | | | [phone] | Sinoatrial node | | | | [...] | | 2. Coronary artery disease involving [place] coronary artery of | | | [place] heart without angina pectoris I25.10 414.01 ECHO [...]
--- OUTSIDE RECORDS SUMMARY | ~2020-04-15 | XMS | Encounter Summary ---
Demographics + + + | Address | [address] | | | [place] [address] | + + + | Home Phone [...] Team Providers + +------+ + | Care Apparel Pattern Maker Name | Role | Phone | [...] | [place] | [place] | | | | | [address] | [address] | | | | | [phone] | | | +--------+ + + + [...] | | | | | | [place] [address] | | | | | | [phone] | | | | | | | [...] | | | | | | [place] [address] | | | | | | [phone] | | | | | | | | +--------+ + + + + | 05/21/ | Implant | Cardiology | Daljit Singletary, | Remote Device | | 2019 | Monitor | | [address] [place] | Interrogation | | | | | [place], | (Primary Dx); | | | | | [place] [address] | Pacemaker; | | | | | [phone] | Sinoatrial node | | | | | | dysfunction ([facility]) | | | | | | with symptomatic | | | | | | bradycardia | +--------+ + + + + documented as of this encounter Visit Diagnoses Not on filedocumented in this encounter"
--- OUTSIDE RECORDS SUMMARY | ~2020-04-15 | XMS | Encounter Summary ---
Demographics + + + | Address | [address] | | | [place] [address] | + + + | Home Phone [...] Team Providers + +------+ + | Care Reversing Mill Roller Name | Role | Phone | [...] 2019 | | GASTROENTEROLOGY | [address] [place] [place] | | | | | [address] [place] | [address] [place], [place] | | | | | [address] [place], [place] | [address] | | | | | [address] | | | | | | [phone] | | | +--------+ + + + [...] | | | | | | [place] [address] | | | | | | [phone] | | | | | | | | +--------+ + + + + | 05/01/ | Procedure | Cardiology | | | | 2019 | visit | | | | +--------+ + + + + | 05/01/ | Office | Cardiology | Silvia, | | | 2019 | Visit | | PARISA [place] [address] | | | | | | [place], | | | | | | [place] [address] | | | | | | [phone] | | | | | | | | +--------+ + + + + | 05/21/ | Implant | Cardiology | Daljit Singletary, | Remote Device | | 2019 | Monitor | | [address] [place] | Interrogation | | | | | [place], | (Primary Dx); | | | | | [place] [address] | Pacemaker; | | | | | [phone] | Sinoatrial node | | | | | | dysfunction ([facility]) | | | | | | with symptomatic | | | | | | bradycardia | +--------+ + + + + documented as of this encounter Visit Diagnoses Not on filedocumented in this encounter"
--- OUTSIDE RECORDS SUMMARY | ~2020-04-15 | XMS | Encounter Summary ---
Demographics + + + | Address | [address] | | | [place] [address] | + + + | Home Phone [...] Team Providers + +------+ + | Care Housecalls Nurse Name | Role | Phone | [...] [place] | | | | | | [address] | | | | | | [phone] | | | +--------+ + + + [...] | | | | | | [place] [address] | | | | | | [phone] | | | | | | | | +--------+ + + + + | 05/01/ | Procedure | Cardiology | | | | 2019 | visit | | | | +--------+ + + + + | 05/01/ | Office | Cardiology | Silvia, | | | 2019 | Visit | | [address] | | | | | | [place], | | | | | | [place] [address] | | | | | | [phone] | | | | | | | | +--------+ + + + + | 05/21/ | Implant | Cardiology | Daljit Singletary, | Remote Device | 2019 | Monitor | | [address] [place] | Interrogation | | | | | [place], | (Primary Dx); | | | | | [place] [address] | Pacemaker; | | | | | [phone] | Sinoatrial node | | | | | | dysfunction (HCC) | | | | | | with symptomatic | | | | | | bradycardia | +--------+ + + + + documented as of this encounter Visit Diagnoses Not on filedocumented in this encounter"
--- OUTSIDE RECORDS SUMMARY | ~2020-04-15 | XMS | Encounter Summary ---
Demographics + + + | Address | [address] | | | [place] [address] | + + + | Home Phone [...] Providers + +------+ + | Care Carpet Measurer Name | Role | Phone | [...] 2016 | | CARDIOLOGY [address] | CATALOGUE CLERK [address] [place] | | | | | [place], | [place], [place] | | | | | [place] [address] | [address] | | | | | [phone] | | | +--------+--------+ + + + [...] W | | | | | | [place], | | | | | | [place] [address] | | | | | | [phone] | | | | | | | | +--------+ + + + + | 05/01/ | Procedure | Cardiology | | | | 2019 | visit | | | | +--------+ + + + + | 05/01/ | Office | Cardiology | Silvia, | | | 2019 | Visit | | [address] | | | | | | [place], | | | | | | [place] [address] | | | | | | [phone] | | | | | | | | +--------+ + + + + | 05/21/ | Implant | Cardiology | Daljit Singletary, | Remote Device | | 2019 | Monitor | | [address] [facility] | Interrogation | | | | | [place], | (Primary Dx); | | | | | [place] [address] | Pacemaker; | | | | | [phone] | Sinoatrial node | | | | | | dysfunction (HCC) | | | | | | with symptomatic | | | | | | bradycardia | +--------+ + + + + documented as of this encounter Visit Diagnoses Not on filedocumented in this encounter"
--- OUTSIDE RECORDS SUMMARY | ~2020-04-15 | XMS | Encounter Summary ---
Demographics + + + | Address | [address] | | | [place] [address] | + + + | Home Phone [...] Team Providers + +------+ + | Care Intrusion Analyst Name | Role | Phone | [...] GASTROENTEROLOGY | [address] [place] | | | | | [address] [place] | [address] [place], [place] | | | | | [address] [place], [place] | [address] | | | | | [address] | | | | | | [phone] | | | +--------+ + + + [...] | | | | | | [place] [address] | | | | | | [phone] | | | | | | | [...] | | | | | | [place] [address] | | | | | | [phone] | | | | | | | | +--------+ + + + + | 05/21/ | Implant | Cardiology | Daljit Singletary, | Remote Device | 2019 | Monitor | | [address] | Interrogation | | | | | [place], | (Primary Dx); | | | | | [place] [address] | Pacemaker; | | | | | [phone] | Sinoatrial node | | | | | | dysfunction (HCC) | | | | | | with symptomatic | | | | | | bradycardia | +--------+ + + + + documented as of this encounter Visit Diagnoses Not on filedocumented in this encounter"
--- OUTSIDE RECORDS SUMMARY | ~2020-04-15 | XMS | Encounter Summary ---
Demographics + + + | Address | [address] | | | [place] [address] | + + + | Home Phone [...] + + | 01/21/ | Emergency | [facility] | Kirill Dominique | Unspecified Chest | | 2009 | | [facility]ICAL CENTER | MD Jonas [address] | Pain | | | | EMERGENCY CENTER | [address] [place] | | | | | [address] | [address] | | | | | [place] | [phone] | | | | | [address] | | | | | | [phone] | | | +--------+ + + + [...] | | | | | | [place], | | | | | | [place] [address] | | | | | | [phone] | | | | | | | | +--------+ + + + + | 05/01/ | Procedure | Cardiology | | | | 2019 | visit | | | | +--------+ + + + + | 05/01/ | Office | Cardiology | Silvia, | | | 2019 | Visit | | [address] | | | | | | [place], | | | | | | [place] [address] | | | | | | [phone] | | | | | | | | +--------+ + + + + | 05/21/ | Implant | Cardiology | Daljit Singletary, | Remote Device | | 2019 | Monitor | | [address] [place] | Interrogation | | | | | [place], | (Primary Dx); | | | | | [place] [address] | Pacemaker; | | | | | [phone] | Sinoatrial node | | | | [...]
--- OUTSIDE RECORDS SUMMARY | ~2020-04-15 | XMS | Encounter Summary ---
Demographics + + + | Address | [address] | | | [place] [address] | + + + | Home Phone [...] Providers + +------+ + | Care Field Contact Person Name | Role | Phone | + +------+ + | Kirk French MD | PCP | | + +------+ + Encounter Details +--------+ + + + + | Date | Type | Department | Care Team | Description | +--------+ + + + + | 01/21/ | Anesthesia | [facility] | Jarett Barakat | | | 2020 | Event | MED CTR MP INTRA OP | P, MD [address] | | | | | [address] | [place], [place] | | | | | [place], [place] | [address] | | | | | [address] | [phone] | | | | | [phone] | | | +--------+ + + + [...] | | | | | | [place] [address] | | | | | | [phone] | | | | | | | | +--------+ + + + + | 05/01/ | Procedure | Cardiology | | | | 2019 | visit | | | | +--------+ + + + + | 05/01/ | Office | Cardiology | Silvia, | | | 2019 | Visit | | [address] | | | | | | [place], | | | | | | [place] [address] | | | | | | [phone] | | | | | | | | +--------+ + + + + | 05/21/ | Implant | Cardiology | Daljit Singletary, | Remote Device | | 2019 | Monitor | | MD [facility] | Interrogation | | | | | [address] [place], | (Primary Dx); | | | | | [place] [address] | Pacemaker; | | | | | [phone] | Sinoatrial node | | | | | | dysfunction (HCC) | | | | | | with symptomatic | | | | | | bradycardia | +--------+ + + + + documented as of this encounter Visit Diagnoses Not on filedocumented in this encounter"
--- OUTSIDE RECORDS SUMMARY | ~2020-04-15 | XMS | Encounter Summary ---
Demographics + + + | Address | [address] | | | [place] [address] | + + + | Home Phone [...] [address] | | | | | [place], | [place], | | | | | [place] [address] | [place] [address] | | | | | [phone] | [phone] | | | | | | | [...] | | | | | | [place] [address] | | | | | | [phone] | | | | | | | [...] | | | | | | [place] [address] | | | | | | [phone] | | | | | | | | +--------+ + + + + | 05/21/ | Implant | Cardiology | Daljit Singletary, | Remote Device | 2019 | Monitor | | MD [address] [place] | Interrogation | | | | | [place], | (Primary Dx); | | | | | [place] [address] | Pacemaker; | | | | | [phone] | Sinoatrial node | | | | | | dysfunction (HCC) | | | | | | with symptomatic | | | | | | bradycardia | +--------+ + + + + documented as of this encounter Visit Diagnoses Not on filedocumented in this encounter"
--- OUTSIDE RECORDS SUMMARY | ~2020-04-15 | XMS | Encounter Summary ---
Demographics + + + | Address | [address] | | | [place] [address] | + + + | Home Phone [...] Providers + +------+ + | Care Digital Media Intern Name | Role | Phone [...] | 01/28/ | Refill | [facility] | Kirk French | Medication Refill | | 2019 | | [facility] | MD Bre[address] | | | | | [facility] [address] | [address] | | | | | [address] | [place] [address] | | | | | [place], [place] | [phone] | | | | | [address] | | | | | | [phone] | | | +--------+--------+ + + + [...] [place], | | | | | | [place] [address] | | | | | | [phone] | | | | | | | [...] | | | | | | [place] [address] | | | | | | [phone] | | | | | | | | +--------+ + + + + | 05/21/ | Implant | Cardiology | Daljit Singletary, | Remote Device | | 2019 | Monitor | | [address] [facility] | Interrogation | | | | | [place], | (Primary Dx); | | | | | [place] [address] | Pacemaker; | | | | | [phone] | Sinoatrial node | | | | | | dysfunction (HCC) | | | | | | with symptomatic | | | | | | bradycardia | +--------+ + + + + documented as of this encounter Visit Diagnoses Not on filedocumented in this encounter"
--- OUTSIDE RECORDS SUMMARY | ~2020-04-15 | XMS | Encounter Summary ---
Demographics + + + | Address | [address] | | | [place] [address] | + + + | Home Phone [...] Team Providers + +------+ + | Care Morning Babysitter Name | Role | Phone | [...] | | CARDIOLOGY [address] | [address] [place] | | | | | [place], | [place], | | | | | [place] [address] | [place] [address] | | | | | [phone] | [phone] | | | | | | | [...] W | | | | | | [place], | | | | | | [place] [address] | | | | | | [phone] | | | | | | | | +--------+ + + + + | 05/01/ | Procedure | Cardiology | | | | 2019 | visit | | | | +--------+ + + + + | 05/01/ | Office | Cardiology | Silvia, | | | 2019 | Visit | | [address] | | | | | | [place], | | | | | | [place] [address] | | | | | | [phone] | | | | | | | | +--------+ + + + + | 05/21/ | Implant | Cardiology | Daljit Singletary, | Remote Device | | 2019 | Monitor | | [address] [facility] | Interrogation | | | | | [place], | (Primary Dx); | | | | | [place] [address] | Pacemaker; | | | | | [phone] | Sinoatrial node | | | | | | dysfunction (HCC) | | | | | | with symptomatic | | | | | | bradycardia | +--------+ + + + + documented as of this encounter Visit Diagnoses Not on filedocumented in this encounter"
--- OUTSIDE RECORDS SUMMARY | ~2020-04-15 | XMS | Encounter Summary ---
Demographics + + + | Address | [address] | | | [place] [address] | + + + | Home Phone [...] + +------+ + | Care High School Vice Principal Name | Role | Phone | [...] | lumbar region | | | | [place] | [address] | | | | | [place] [address] | [place] [address] | | | | | [phone] | [phone] | | | | | | | [...] + + +---------+ + + | [place]-3 Fatty | CAPS, one capsule by [...] | | | | | | [place] [address] | | | | | | [phone] | | | | | | | | +--------+ + + + + | 05/01/ | Procedure | Cardiology | | | | 2019 | visit | | | | +--------+ + + + + | 05/01/ | Office | Cardiology | Silvia | | | 2019 | Visit | | Janeen, SUPERVISOR SPECIALTY PLANT [address] | | | | | | [place], | | | | | | [place] [address] | | | | | | [phone] | | | | | | | | +--------+ + + + + | 05/21/ | Implant | Cardiology | Daljit Singletary, | Remote Device | | 2020 | Monitor | | [address] [place] | Interrogation | | | | | [place], | (Primary Dx); | | | | | [place] [address] | Pacemaker; | | | | | [phone] | Sinoatrial node | | | | [...]
--- OUTSIDE RECORDS SUMMARY | ~2020-04-15 | XMS | Encounter Summary ---
Demographics + + + | Address | [address] | | | [place] [address] | + + + | Home Phone [...] Team Providers + +------+ + | Care Keyboard Specialist Name | Role | Phone | [...] 2016 | | CARDIOLOGY [address] | [employer] [address] | | | | | [place], | [place], [place] | | | | | [place] [address] | [address] | | | | | [phone] | | | +--------+--------+ + + + [...] W | | | | | | [place], | | | | | | [place] [address] | | | | | | [phone] | | | | | | | | +--------+ + + + + | 05/01/ | Procedure | Cardiology | | | | 2019 | visit | | | | +--------+ + + + + | 05/01/ | Office | Cardiology | Silvia, | | | 2019 | Visit | | PARISA Vernon W | | | | | | [place], | | | | | | [place] [address] | | | | | | [phone] | | | | | | | | +--------+ + + + + | 05/21/ | Implant | Cardiology | Daljit Singletary, | Remote Device | | 2019 | Monitor | | [address] [facility] [place] | Interrogation | | | | | [place], | (Primary Dx); | | | | | [place] [address] | Pacemaker; | | | | | [phone] | Sinoatrial node | | | | | | dysfunction (HCC) | | | | | | with symptomatic | | | | | | bradycardia | +--------+ + + + + documented as of this encounter Visit Diagnoses Not on filedocumented in this encounter"
--- OUTSIDE RECORDS SUMMARY | ~2020-04-15 | XMS | Encounter Summary ---
Demographics + + + | Address | [address] | | | [place] [address] | + + + | Home Phone [...] Team Providers + +------+ + | Care Fan Mail Editor Name | Role | Phone | [...] + + | 06/26/ | Office | [facility] | Geri Angel, | Coronary artery | | 2015 | Visit | CARDIOLOGY [address] | CARDIO TECH [address] [place] | disease involving | | | | [place], | [place], [place] | capitan grande coronary | | | | [place] [address] | [address] | artery without | | | | [phone] | | angina pectoris | | | [...] occur with exertion. He went to 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 to reduce urinary frequenc y Lot #[id number], exp 07/2016 21 capsule 0 Specialty Vitamins [...] INTERROGATION REVIEWED BY: PARISA Velazquez DEVICE IDENTIFICATION: [employer]worker [employer]: [employer]. Leads: Right atrium and right ventricle (dual [...] this chart may have been created with DNA Guide voice recognition software. Occasi onal wrong-word or [...] W | | | | | | [place], | | | | | | [place] [address] | | | | | | [phone] | | | | | | | | +--------+ + + + + | 05/01/ | Procedure | Cardiology | | | | 2019 | visit | | | | +--------+ + + + + | 05/01/ | Office | Cardiology | Silvia, | | | 2019 | Visit | | PARISA Vernon W | | | | | | [place], | | | | | | [place] [address] | | | | | | [phone] | | | | | | | | +--------+ + + + + | 05/21/ | Implant | Cardiology | Daljit Singletary, | Remote Device | | 2020 | Monitor | | [address] [facility] | Interrogation | | | | | 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
--- OUTSIDE RECORDS SUMMARY | ~2020-04-15 | XMS | Encounter Summary ---
Demographics + + + | Address | [address] | | | [place] [address] | + + + | Home Phone [...] Team Providers + +------+ + | Care Preparer Making Department Name | Role | Phone | [...] 2019 | | GASTROENTEROLOGY | [address], [place] | | | | | [address] [place] | [address] [place], [place] | | | | | [address] [place], [place] | [address] | | | | | [address] | | | | | | [phone] | | | +--------+ + + + [...] [place], | | | | | | [place] [address] | | | | | | [phone] | | | | | | | | +--------+ + + + + | 05/01/ | Procedure | Cardiology | | | | 2019 | visit | | | | +--------+ + + + + | 05/01/ | Office | Cardiology | Silvia, | | | 2019 | Visit | | PARISA Vernon W | | | | | | [place], | | | | | | [place] [address] | | | | | | [phone] | | | | | | | | +--------+ + + + + | 05/21/ | Implant | Cardiology | Daljit Singletary, | Remote Device | | 2019 | Monitor | | [address] [facility] | Interrogation | | | | | [place], | (Primary Dx); | | | | | [place] [address] | Pacemaker; | | | | | [phone] | Sinoatrial node | | | | | | dysfunction (HCC) | | | | | | with symptomatic | | | | | | bradycardia | +--------+ + + + + documented as of this encounter Visit Diagnoses Not on filedocumented in this encounter"
--- OUTSIDE RECORDS SUMMARY | ~2020-04-15 | XMS | Encounter Summary ---
Demographics + + + | Address | [address] | | | [place] [address] | + + + | Home Phone [...] Team Providers + +------+ + | Care Custom Feed Mill Operator Name | Role | Phone [...] | | | | | region | [address] | | | | | | Procedures | [address] | | | | | | CT | [place], [place] | | | | | | Myelography | [address] | | | | | | Lumbar Spine | Phone: | | | | | | | [phone] | | | | | | | Fax: | | | | | | | [phone] | | +--------+--------+ + + + + [...] | | | | | region | [address] | | | | | | Procedures | [address] | | | | | | CT | [place], [place] | | | | | | Myelography | [address] | | | | | | Lumbar Spine | Phone: | | | | | | | [phone] | | | | | | | Fax: | | | | | | | [phone] | | +--------+--------+ + + + + Encounter Details +--------+ + + + + | Date | Type | Department | Care Team | Description | +--------+ + + + + | 04/07/ | Hospital | [facility] | Pia Akhtar | Spinal stenosis, | | 2016 | Encounter | MED CTR [address] | MD [address] | lumbar region | | | | [place], | [address] | | | | | [place] [address] | [place] [address] | | | | | [phone] | [phone] | | | | | | | [...] + + + +---------+ + + | [place]-3 Fatty | CAPS, one capsule by | [...] W | | | | | | [place], | | | | | | [place] [address] | | | | | | [phone] | | | | | | | | +--------+ + + + + | 05/01/ | Procedure | Cardiology | | | | 2019 | visit | | | | +--------+ + + + + | 05/01/ | Office | Cardiology | Silvia, | | | 2019 | Visit | | PARISA [address] W | | | | | | [place], | | | | | | [place] [address] | | | | | | [phone] | | | | | | | | +--------+ + + + + | 05/21/ | Implant | Cardiology | Daljit Singletary, | Remote Device | | 2019 | Monitor | | [address] [place] | Interrogation | | | | | [place], | (Primary Dx); | | | | | [place] [address] | Pacemaker; | | | | | [phone] | Sinoatrial node | | | | [...]
--- OUTSIDE RECORDS SUMMARY | ~2020-04-15 | XMS | Encounter Summary ---
Demographics + + + | Address | [address] [place] [address] [address] | | | [place] [address] | + + + | Home Phone [...] [place] | | | | | [address] | | + + + + + Care Team Providers + +------+ + | Care Shellfish Weigher Name | Role | Phone | [...] | | | | l weight | [place], [place] | | | | | | loss | [address] | | | | | | Procedures | Phone: | | | | | | CONSULT TO | [phone] | | | | | | NON - [facility] | Fax: | | | | | | PROVIDER | [phone] | | | | | | CONSULT [...] Center at [facility] [address] | MD [address] | change location of | | | | [address] | [place], [place] | referral ) | | | | Mailcode: Center | [address] | | | | | for Health and | [phone] | | | | | [facility] 2 | | | | | | [place], [place] | | | | | | [address] | | | | | | [phone] | | | +--------+ + + + [...]
--- OUTSIDE RECORDS SUMMARY | ~2020-04-15 | XMS | Encounter Summary ---
Demographics + + + | Address | [address] | | | [place] [address] | + + + | Home Phone [...] Team Providers + +------+ + | Care Pourer Crane Ladle Name | Role | Phone | + [...] [place], [place] | | | | | [place] | | [address] Phone: | | | | | CYSTO/URETER | | [phone] | | | | | O | | Fax: | | | | | W/LITHOTRIPS | | [phone] | | | | | Y &INDWELL [...] + + | 04/13/ | Surgery | [facility] | Matthew Uriarte | Cystoscopy, Left | | 2018 | | MED CTR OR INTRA OP | Dahl, MD [address] | ureteroscopy with | | | | [address] | [place] | laser lithotripsy, | | | | [place] | [address] | Left ureteral stent | | | | [address] | | placement | | | | [phone] | | | +--------+---------+ + + + [...] Care Everywhere.Kidney Stones, Treating: Ureteroscopic Stone Removal (Tanzanian)Stents, Ureteral (Tanzanian)documented in this encounter Medications at Time of [...] | | | | | | | [place] coronary | | | | | | | artery of [place] | | | | | | | [...] W | | | | | | [place], | | | | | | [place] [address] | | | | | | [phone] | | | | | | | | +--------+ + + + + | 05/01/ | Procedure | Cardiology | | | | 2019 | visit | | | | +--------+ + + + + | 05/01/ | Office | Cardiology | Silvia, | | | 2019 | Visit | | PARISA Vernon W | | | | | | [place], | | | | | | [place] [address] | | | | | | [phone] | | | | | | | | +--------+ + + + + | 05/21/ | Implant | Cardiology | Daljit Singletary, | Remote Device | 2019 | Monitor | | [address] | Interrogation | | | | | [place], | (Primary Dx); | | | | | [place] [address] | Pacemaker; | | | | | [phone] | Sinoatrial node | | | | [...] [facility] | | | | | | at:[phone]. | | | | + + + [...] + + | Performed at: 01 - [facility] [address] [facility], | REFERENCE LAB | | [place], [place] [id number] Disc Pad Grinder: Yeny Rios MD, Phone: | ARSH CASTANON | | [phone] | | + + + + + + + + | Performing | Address | City/State/Zipcode | Phone Number | | Organization | | | | + + + + + | REFERENCE LAB | [address] | [place], [place] | [phone] | | ARSH CASTANON | [facility] | [address] | | + + + + + [...] + | [facility] | [address] | [place] | [phone] | | [facility] | | [address] | | | - LABORATORY | | [...] + | [facility] | [address] | [place] | [phone] | | [facility] | | [address] | | | - LABORATORY | | [...] [address] | [place] | [phone] | | [facility] | | [address] | | | - LABORATORY | | [...] + | [facility] | [address] | [place] | [phone] | | [facility] | | [address] | | | - LABORATORY | | [...] | mL/min/1.73m2 | MICHELLE | | | [place] | RATE,ESTIMATED | | MEDICAL | | | | mL/min/1.10w1Anbw than | | CENTER - | | [...] [address] | [place] | [phone] | | [facility] | | [address] | | | - LABORATORY | | [...] First | | | dose on [facility] 04/13/19 at 1400, | | | Start 8 hours after pre-op dose., | | | Post-op/Phase II | | + +---+ | | | + +---+ | albuterol 2.5 mg/3 mL nebulizer | | | solution 2.5 mg 2.5 mg, | | | Nebulization, ONCE PRN, Wheezing, | | | Starting [facility] 04/13/19 at 0917, | | | [...] < 40, | | | Starting [facility] 04/13/19 at 0917, For | | [...] HOUR PRN, | | | Pain, Starting Taila 04/13/19 at | | | 1046, If [...] | | | | | | | nqmict-mao-xaukn use of at least | | | [...] day), | | | First dose on [facility] 04/13/19 at | | | 2030, [...] | | | | | CONTINUOUS, Starting [facility] 04/13/19 | | AM PDT | | | | | at 0700, TKO., Pre-op | | | | | | + +---------+ +---+---+---+ + +---+ | | | + +---+ | midazolam (VERSED) 1 mg/mL | | | injection 0.5-2 mg 0.5-2 mg, | | | Intravenous, EVERY 5 MIN PRN, | | | Anxiety, or agitation, Starting | | | [facility] 04/13/19 at 0917, Maximum | | [...]
--- OUTSIDE RECORDS SUMMARY | ~2020-04-15 | XMS | Encounter Summary ---
Demographics + + + | Address | [address] | | | [place] [address] | + + + | Home Phone [...] Providers + +------+ + | Care Director Professional Services Name | Role | Phone | + +------+ + PCP | Unavailable | + +------+ + Encounter Details +--------+ + + + + | Date | Type | Department | Care Team | Description | +--------+ + + + + | 04/23/ | Hospital | [facility] | | | | 2007 - | Encounter | MED CTR MED ONC | | | | | | [address] [place] | | | | 04/24/ | | [place] [address] | | | | 2007 | | [phone] | | | +--------+ + + + [...] | | | | | | [place] [address] | | | | | | [phone] | | | | | | | | +--------+ + + + + | 05/01/ | Procedure | Cardiology | | | | 2019 | visit | | | | +--------+ + + + + | 05/01/ | Office | Cardiology | Silvia, | | | 2019 | Visit | | PAR[place] W | | | | | | [place], | | | | | | [place] [address] | | | | | | [phone] | | | | | | | | +--------+ + + + + | 05/21/ | Implant | Cardiology | Daljit Singletary, | Remote Device | 2019 | Monitor | | [address] [place] | Interrogation | | | | | [place], | (Primary Dx); | | | | | [place] [address] | Pacemaker; | | | | | [phone] | Sinoatrial node | | | | | | dysfunction (HCC) | | | | | | with symptomatic | | | | | | bradycardia | +--------+ + + + + documented as of this encounter Visit Diagnoses Not on filedocumented in this encounter"
--- OUTSIDE RECORDS SUMMARY | ~2020-04-15 | XMS | Encounter Summary ---
Demographics + + + | Address | [address] | | | [place] [address] | + + + | Home Phone [...] Providers + +------+ + | Care Representative Personal Service Name | Role | Phone | [...] | | | | CENTER [address] | [address] [place] | | | | | [place], [place] | [place] [address] | | | | | [address] | [phone] | | | | | [phone] | | | +--------+ + + + [...] | | | | | | | [place]akan[place] coronary | | | | | | | artery of [place] | | | | | | | [...] W | | | | | | [place], | | | | | | [place] [address] | | | | | | [phone] | | | | | | | | +--------+ + + + + | 05/01/ | Procedure | Cardiology | | | | 2019 | visit | | | | +--------+ + + + + | 05/01/ | Office | Cardiology | Silvia, | | | 2019 | Visit | | PARISA [place] W | | | | | | [place], | | | | | | [place] [address] | | | | | | [phone] | | | | | | | | +--------+ + + + + | 05/21/ | Implant | Cardiology | Daljit Singletary, | Remote Device | | 2020 | Monitor | | MD [address] [facility] | Interrogation | | | | | [place], | (Primary Dx); | | | | | [place] [address] | Pacemaker; | | | | | [phone] | Sinoatrial node | | | | [...] W?MRN: | | | | | | [id number] | | | [id number] | | | riteri | | | [...] | | | St. | | | [place] | | | y | | | [...] | | | St. | | | [place] | | | y | | | [...] | | | St. | | | [place] | | | y H. | | [...] | | | St. | | | [place] | | | y H. | | [...] | | | M.D. | | | Technical Communicator | | | al | | | [...] | | | ent/60 | | | [id number] | | | -5586- | | | [...] [address] | [place] | [phone] | | [facility] | | [address] | | | - LABORATORY | | [...] [address] | [place] | [phone] | | [facility] | | [address] | | | - LABORATORY | | [...] [address] | [place] | [phone] | | [facility] | | [address] | | | - LABORATORY | | [...] + | [facility] | [address] | [place] | [phone] | | [facility] | | [address] | | | - LABORATORY | | [...] | | | | | | [facility] [address] [place] | | | | | | [...] ST. | [address] | [place] | [phone] | | [facility] | | [address] | | | - LABORATORY | | [...] | [place] | | | [place] | RATE,ESTIMATED | | MEDICAL | | | | mL/min/1.53s2Sjlo than | | CENTER - | | [...] + + + + + + | Albumin/Sadnee | 2.0 (H) | 0.8 - 1.9 [...] + | [facility] | [address] | [place] | [phone] | | [facility] | | [address] | | | - LABORATORY | | [...] [address] | [place] | [phone] | | [facility] | | [address] | | | - LABORATORY | | [...] - 1.030 | [facility] | | | [place], | | | [facility] [place] | | [...] [address] | [place] | [phone] | | [facility] | | [address] | | | - LABORATORY | | [...]
--- OUTSIDE RECORDS SUMMARY | ~2020-04-15 | XMS | Encounter Summary ---
Demographics + + + | Address | [address] | | | [place] [address] | + + + | Home Phone [...] Providers + +------+ + | Care Desktop Engineer Name | Role | Phone | [...] [place] | | | | | [address] [place], [place] | [place] [address] | | | | | [address] | [phone] | | | | | [phone] | | | +--------+ + + + [...] W | | | | | | [place], | | | | | | [place] [address] | | | | | | [phone] | | | | | | | | +--------+ + + + + | 05/01/ | Procedure | Cardiology | | | | 2019 | visit | | | | +--------+ + + + + | 05/01/ | Office | Cardiology | Silvia, | | | 2019 | Visit | | PARISA Vernon [address] | | | | | | [place], | | | | | | [place] [address] | | | | | | [phone] | | | | | | | | +--------+ + + + + | 05/21/ | Implant | Cardiology | Daljit Singletary, | Remote Device | | 2019 | Monitor | | [address] | Interrogation | | | | | [place], | (Primary Dx); | | | | | [place] [address] | Pacemaker; | | | | | [phone] | Sinoatrial node | | | | [...]
--- OUTSIDE RECORDS SUMMARY | ~2020-04-15 | XMS | Encounter Summary ---
Demographics + + + | Address | [address] | | | [place] [address] | + + + | Home Phone [...] Providers + +------+ + | Care Dormitory Supervisor Name | Role | Phone | [...] 2014 | | CARDIOLOGY [address] | SPARK TESTER [address] | | | | | [place], | [place], [place] | | | | | [place] [address] | [address] | | | | | [phone] | | | +--------+ + + + [...] | | | | | | [place] [address] | | | | | | [phone] | | | | | | | [...] | | | | | | [place] [address] | | | | | | [phone] | | | | | | | | +--------+ + + + + | 05/21/ | Implant | Cardiology | Daljit Singletary, | Remote Device | | 2019 | Monitor | | [address] [facility] | Interrogation | | | | | [place], | (Primary Dx); | | | | | [place] [address] | Pacemaker; | | | | | [phone] | Sinoatrial node | | | | | | dysfunction (HCC) | | | | | | with symptomatic | | | | | | bradycardia | +--------+ + + + + documented as of this encounter Visit Diagnoses Not on filedocumented in this encounter"
--- OUTSIDE RECORDS SUMMARY | ~2020-04-15 | XMS | Encounter Summary ---
Demographics + + + | Address | [address] | | | [place] [address] | + + + | Home Phone [...] Team Providers + +------+ + | Care Biology Internship Name | Role | Phone | [...] | 10/26/ | Refill | [facility] [place] | Kirk French | Medication Refill | | 2019 | | GASTROENTEROLOGY | MD Brea [address] | | | | | [address] [place] | [address] | | | | | [address] [place], [place] | [place] [address] | | | | | [address] | [phone] | | | | | [phone] | | | +--------+--------+ + + + [...] | | | | | | [place] [address] | | | | | | [phone] | | | | | | | | +--------+ + + + + | 05/01/ | Procedure | Cardiology | | | | 2019 | visit | | | | +--------+ + + + + | 05/01/ | Office | Cardiology | Silvia, | | | 2019 | Visit | | PARISA Vernon [address] | | | | | | [place], | | | | | | [place] [address] | | | | | | [phone] | | | | | | | | +--------+ + + + + | 05/21/ | Implant | Cardiology | Daljit Singletary, | Remote Device | 2019 | Monitor | | [facility] | Interrogation | | | | | [place], | (Primary Dx); | | | | | [place] [address] | Pacemaker; | | | | | [phone] | Sinoatrial node | | | | | | dysfunction (HCC) | | | | | | with symptomatic | | | | | | bradycardia | +--------+ + + + + documented as of this encounter Visit Diagnoses Not on filedocumented in this encounter"
--- OUTSIDE RECORDS SUMMARY | ~2020-04-15 | XMS | Encounter Summary ---
Demographics + + + | Address | [address] | | | [place] [address] | + + + | Home Phone [...] Only | [facility] [place] | Darlene iTrado, | | | 2014 | | CARDIOLOGY [address] | RN | | | | | [place], | | | | | | [place] [address] | | | | | | [phone] | | | +--------+ + + + [...] | | | | | | [place], | | | | | | [place] [address] | | | | | | [phone] | | | | | | | | +--------+ + + + + | 05/01/ | Procedure | Cardiology | | | | 2019 | visit | | | | +--------+ + + + + | 05/01/ | Office | Cardiology | Silvia | | | 2019 | Visit | | PARISA Vernon [address] | | | | | | [place], | | | | | | [place] [address] | | | | | | [phone] | | | | | | | | +--------+ + + + + | 05/21/ | Implant | Cardiology | Daljit Singletary, | Remote Device | | 2019 | Monitor | | MD [address] [place] | Interrogation | | | | | [place], | (Primary Dx); | | | | | [place] [address] | Pacemaker; | | | | | [phone] | Sinoatrial node | | | | | | dysfunction (HCC) | | | | | | with symptomatic | | | | | | bradycardia | +--------+ + + + + documented as of this encounter Visit Diagnoses Not on filedocumented in this encounter"
--- OUTSIDE RECORDS SUMMARY | ~2020-04-15 | XMS | Encounter Summary ---
Demographics + + + | Address | [address] | | | [place] [address] | + + + | Home Phone [...] Providers + +------+ + | Care Bin Tripper Operator Name | Role | Phone | + +------+ + PCP | Unavailable | + +------+ + Encounter Details +--------+ + + + + | Date | Type | Department | Care Team | Description | +--------+ + + + + | 06/12/ | [facility] | [facility] | Hunter Antunez, | | | 2007 - | Encounter | MED CTR ICU [address] | MD [address] | | | | | [place], | [place] | | | 06/15/ | | [place] [address] | [address] | | | 2007 | | [phone] | | | +--------+ + + + [...] | | | | | | [place] [address] | | | | | | [phone] | | | | | | | [...] | | | | | | [place] [address] | | | | | | [phone] | | | | | | | | +--------+ + + + + | 05/21/ | Implant | Cardiology | Daljit Singletary, | Remote Device | 2019 | Monitor | | MD [address] [place] | Interrogation | | | | | [place], | (Primary Dx); | | | | | [place] [address] | Pacemaker; | | | | | [phone] | Sinoatrial node | | | | | | dysfunction (HCC) | | | | | | with symptomatic | | | | | | bradycardia | +--------+ + + + + documented as of this encounter Visit Diagnoses Not on filedocumented in this encounter"
--- OUTSIDE RECORDS SUMMARY | ~2020-04-15 | XMS | Encounter Summary ---
Demographics + + + | Address | [address] | | | [place] [address] | + + + | Home Phone [...] Providers + +------+ + | Care Leak Gang Supervisor Name | Role | Phone [...] [place] | | | | | | [address] | | | | | | [phone] | | | +--------+ + + + [...] + + + +---------+ + + | [place]-3 Fatty | CAPS, one capsule by | [...] | 2019 | | | PAIRSA [place] [address] | | | | | | [place], | | | | | | [place] [address] | | | | | | [phone] | | | | | | | | +--------+ + + + + | 05/01/ | Procedure | Cardiology | | | | 2019 | visit | | | | +--------+ + + + + | 05/01/ | Office | Cardiology | Silvia, | | | 2019 | Visit | | PARISA Vernon [address] | | | | | | [place], | | | | | | [place] [address] | | | | | | [phone] | | | | | | | | +--------+ + + + + | 05/21/ | Implant | Cardiology | Daljit Singletary, | Remote Device | 2019 | Monitor | | [address] [facility] | Interrogation | | | | | [place], | (Primary Dx); | | | | | [place] [address] | Pacemaker; | | | | | [phone] | Sinoatrial node | | | | [...]
--- OUTSIDE RECORDS SUMMARY | ~2020-04-15 | XMS | Encounter Summary ---
Demographics + + + | Address | [address] | | | [place] [address] | + + + | Home Phone [...] 02/28/ | [facility] | [facility] | Geri Angel, | | | 2011 | Encounter | MED CTR XRAY [address] | KNIFEMAN [address] [place] | | | | | [place] | St [place] | | | | | [place] [address] | [address] | | | | | [phone] | | | +--------+ + + + [...] W | | | | | | [place], | | | | | | [place] [address] | | | | | | [phone] | | | | | | | | +--------+ + + + + | 05/01/ | Procedure | Cardiology | | | | 2019 | visit | | | | +--------+ + + + + | 05/01/ | Office | Cardiology | Silvia, | | | 2019 | Visit | | PARISA [address] | | | | | | [place], | | | | | | [place] [address] | | | | | | [phone] | | | | | | | | +--------+ + + + + | 05/21/ | Implant | Cardiology | Daljit Singletary, | Remote Device | | 2019 | Monitor | | [address] [place] | Interrogation | | | | | [place], | (Primary Dx); | | | | | [place] [address] | Pacemaker; | | | | | [phone] | Sinoatrial node | | | | [...] [facility] | [facility] | | [address] [facility] | [facility] | | LEFT HEART CATHETERIZATION | [facility] | | REPORT 02/29/2012 HEMODYNAMICS: Aortic pressure [...] was taken to | | | Cardiac Water Control Station Engineer. He was prepared and draped in the usual fashion | | | under a sterile technique and local anesthesia, percutaneous access | | | was obtained using #6- Ugandan sheath in the right femoral artery. | | | Right heart cath was not performed in this patient. Left | | | ventriculography was performed using #6-Ugandan pigtail catheter. | | | The selective coronary angiography were then performed in several | | | sagittal and oblique projection using the 6-Ugandan JL 4 and #6 Ugandan | | | 3DRC diagnostic catheters. The [...] Transcribed | | | Date/Time: 02/29/2012 09:09 Knitting Teacher: | | | <Electronically Signed by Daljit Singletary MD [facility]> 02/29/12 | | | 1002 | | + + + + + | Procedure Note | + + | Kalpesh Brown Conversion - 12/29/2013 5:04 PM [facility] | | Diagnostic Imaging Department | | [address] [facility] | | | | | | [...] patient was taken to Cardiac | | Water Control Station Engineer. He was prepared and draped in the usual fashion under a sterile | | technique and local anesthesia, percutaneous access was obtained using #6- | | Ugandan sheath in the right femoral artery. Right heart cath was not performed | | in this patient. Left ventriculography was performed using #6-Ugandan pigtail | | catheter. The selective coronary angiography were then performed in several | | sagittal and oblique projection using the 6-Ugandan JL 4 and #6 Ugandan 3DRC | | diagnostic catheters. The patient [...] | Transcribed Date/Time: 02/29/2012 09:09 | | Knitting Teacher: | | <Electronically Signed by Daljit Singletary MD [facility]> 02/29/12 1002 | + [...]
--- OUTSIDE RECORDS SUMMARY | ~2020-04-15 | XMS | Encounter Summary ---
Demographics + + + | Address | [address] | | | [place] [address] | + + + | Home Phone [...] Providers + +------+ + | Care Lamination Operator Name | Role | Phone | [...] Provider Unknown | | | | | [place], [place] | [phone] | | | | | [address] | | | | | | [phone] | | | +--------+ + + + [...] + + + +---------+ + + | [place]-3 Fatty | CAPS, one capsule by | [...] | | | | | | [place] [address] | | | | | | [phone] | | | | | | | [...] | | | | | | [place] [address] | | | | | | [phone] | | | | | | | | +--------+ + + + + | 05/21/ | Implant | Cardiology | Daljit Singletary, | Remote Device | 2019 | Monitor | | MD [place] | Interrogation | | | | | [place], | (Primary Dx); | | | | | [place] [id number] | Pacemaker; | | | | | [phone] | Sinoatrial node | | | | [...]
--- OUTSIDE RECORDS SUMMARY | ~2020-04-15 | XMS | Encounter Summary ---
Demographics + + + | Address | [address] | | | [place] [address] | + + + | Home Phone [...] Providers + +------+ + | Care Elevator Mechanic Name | Role | Phone | + +------+ + PCP | Unavailable | + +------+ + Encounter Details +--------+ + + + + | Date | Type | Department | Care Team | Description | +--------+ + + + + | 05/13/ | Hospital | [facility] | | | | 2007 | Encounter | MED CTR EMERGENCY | | | | | | [place] [address] | | | | | | [place] | | | | | | [address] | | | | | | [phone] | | | +--------+ + + + [...] | | | | | | [place] [address] | | | | | | [phone] | | | | | | | | +--------+ + + + + | 05/01/ | Procedure | Cardiology | | | | 2019 | visit | | | | +--------+ + + + + | 05/01/ | Office | Cardiology | [place], | | | 2019 | Visit | | [address] | | | | | | [place], | | | | | | [place] [address] | | | | | | [phone] | | | | | | | | +--------+ + + + + | 05/21/ | Implant | Cardiology | Daljit Singletary, | Remote Device | 2019 | Monitor | | [address] [place] | Interrogation | | | | | [place], | (Primary Dx); | | | | | [place] [address] | Pacemaker; | | | | | [phone] | Sinoatrial node | | | | | | dysfunction (HCC) | | | | | | with symptomatic | | | | | | bradycardia | +--------+ + + + + documented as of this encounter Visit Diagnoses Not on filedocumented in this encounter"
--- OUTSIDE RECORDS SUMMARY | ~2020-04-15 | XMS | Encounter Summary ---
Demographics + + + | Address | [address] | | | [place] [address] | + + + | Home Phone [...] Providers + +------+ + | Care Bobbin Inspector Name | Role | Phone | + +------+ + PCP | Unavailable | + +------+ + Encounter Details +--------+ + + + + | Date | Type | Department | Care Team | Description | +--------+ + + + + | 04/22/ | Hospital | [facility] | | | | 2011 | Encounter | MED CTR XRAY [address] | | | | | | [place] | | | | | | [place] [address] | | | | | | [phone] | | | +--------+ + + + [...] + + + +---------+ + + | [place]-3 Fatty | CAPS, one capsule by | [...] | | | | | | [place] [address] | | | | | | [phone] | | | | | | | | +--------+ + + + + | 05/01/ | Procedure | Cardiology | | | | 2019 | visit | | | | +--------+ + + + + | 05/01/ | Office | Cardiology | [place], | | | 2019 | Visit | | [place] [address] | | | | | | [place], | | | | | | [place] [address] | | | | | | [phone] | | | | | | | | +--------+ + + + + | 05/21/ | Implant | Cardiology | Daljit Singletary, | Remote Device | | 2019 | Monitor | | MD [address] [place] | Interrogation | | | | | [place], | (Primary Dx); | | | | | [place] [address] | Pacemaker; | | | | | [phone] | Sinoatrial node | | | | [...] + + | [facility] Diagnostic Imaging Department | [place] | | [address] [facility] | [place] [employer] | | CT MYELOGRAM LUMBAR SPINE, [...] Transcribed Date/Time: | | | 04/23/2012 11:06 Assurance Associate: <Electronically Signed | | | by Jama Solis MD> 04/24/12 0730 | | + + + + + | Procedure Note | + + | Kevin, Rad Conversion - 12/29/2013 5:27 PM [facility] | | Diagnostic Imaging Department [address] [place] [address] | | CT MYELOGRAM LUMBAR SPINE, 04/22/2012 [...] 10:54 | |Transcribed Date/Time: 04/23/2012 11:06 | |Assurance Associate: | |<Electronically Signed by Jama Solis MD> 04/24/12 0730 | + + + +---------+ + + | Performing | Address | City/State/Zipcode | Phone Number | | Organization | | | | + +---------+ + + | [facility] | | | | | [facility] | | | | + +---------+ + + CT Thoracic Spine w Contrast (04/22/2012 1:12 PM PDT) + + | Specimen | + + | | + + + + + | Narrative | Performed At | + + + | [facility] Diagnostic Imaging Department | [facility] | | [address] [facility] | [facility] | | THORACIC CT MYELOGRAM | DIAG [...] Transcribed Date/Time: 04/22/2012 17:32 | | | Assurance Associate: <Electronically Signed by Jama Mason | | | MD Will> 04/23/12 1039 | | + + + + + | Procedure Note | + + | Kevin, Rad Conversion - 12/29/2013 5:27 PM [facility] | | Diagnostic Imaging Department [address] [facility] | | THORACIC CT MYELOGRAM CLINICAL [...] 16:56 | |Transcribed Date/Time: 04/22/2012 17:32 | |Assurance Associate: | |<Electronically Signed by Jama Solis MD> 04/23/12 1039 | + + + +---------+ + + | Performing | Address | City/State/Zipcode | Phone Number | | Organization | | | | + +---------+ + + | [place] | | | | | [facility] | | | | + +---------+ + + CT Cervical Spine w Contrast (04/22/2012 1:12 PM PDT) + + | Specimen | + + | | + + + + + | Narrative | Performed At | + + + | [facility] Diagnostic Imaging Department | [facility] | | [address] [facility] | [facility] | | CT MYELOGRAM CERVICAL SPINE | [...] Similar study from | | | 09/02/2009, [facility]. FINDINGS: Firm bony ankylosis | | [...] Transcribed Date/Time: | | | 04/22/2012 17:25 Assurance Associate: 1 <Electronically Signed | | | by Jama Solis MD> 04/23/12 1039 | | + + + + + | Procedure Note | + + | Kevin, Rad Conversion - 12/29/2013 5:27 PM [facility] | | Diagnostic Imaging Department | | [...] | | COMPARISON: Similar study from 09/02/2009, [facility]. | | | | FINDINGS: Firm [...] | Transcribed Date/Time: 04/22/2012 17:25 | | Assurance Associate: | | <Electronically Signed by Jama Solis [...] + + | [facility] Diagnostic Imaging Department | [place] | | [address] [place] | [place] | | LUMBAR [...] Transcribed Date/Time: 04/22/2012 16:36 | | | Assurance Associate: DEBRA <Electronically Signed by Jama Mason | | | MD Will> 04/23/12 1039 | | + + + + + | Procedure Note | + + | Kevin, Rad Conversion - 12/29/2013 5:27 PM [facility] | | Diagnostic Imaging Department [address] [place] [address] | | LUMBAR MYELOGRAM INJECTION FOR CT [...] 15:51 | |Transcribed Date/Time: 04/22/2012 16:36 | |Assurance Associate: | |<Electronically Signed by Jama Solis MD> [...]
--- OUTSIDE RECORDS SUMMARY | ~2020-04-15 | XMS | Encounter Summary ---
Demographics + + + | Address | [address] | | | [place] [address] | + + + | Home Phone [...] Providers + +------+ + | Care Electrical Logging Engineer Name | Role | Phone | + +------+ + PCP | Unavailable | + +------+ + Encounter Details +--------+ + + + + | Date | Type | Department | Care Team | Description | +--------+ + + + + | 05/28/ | [facility] | [facility] | Evan Gandara MD | | | 2008 | Encounter | MED CTR LABORATORY | [address] [facility] | | | | | [address] | [place] | | | | | [place] | [address] | | | | | [address] | | | | | | [phone] | | | +--------+ + + + [...] | | | 2020 | | | [place] [address] | | | | | | [place], | | | | | | [place] [address] | | | | | | [phone] | | | | | | | | +--------+ + + + + | 05/01/ | Procedure | Cardiology | | | | 2019 | visit | | | | +--------+ + + + + | 05/01/ | Office | Cardiology | [place]via | | | 2019 | Visit | | [place] [address] | | | | | | [place], | | | | | | [place] [address] | | | | | | [phone] | | | | | | | | +--------+ + + + + | 05/21/ | Implant | Cardiology | Daljit Singletary, | Remote Device | 2019 | Monitor | | MD Sim [address] [place] | Interrogation | | | | | [place], | (Primary Dx); | | | | | [place] [address] | Pacemaker; | | | | | [phone] | Sinoatrial node | | | | | | dysfunction (HCC) | | | | | | with symptomatic | | | | | | bradycardia | +--------+ + + + + documented as of this encounter Visit Diagnoses Not on filedocumented in this encounter"
--- OUTSIDE RECORDS SUMMARY | ~2020-04-15 | XMS | Encounter Summary ---
Demographics + + + | Address | [address] | | | [place] [address] | + + + | Home Phone [...] Providers + +------+ + | Care Medical Appointment Scheduler Name | Role | Phone | [...] | | | | Chest pain, | Mihcael Olvera MD | MD Daljit | | | | | unspecified | [address] | | | | | ER FUP | [address] | [address] | | | | | Procedures | [place], | [place], | | | | | FUP | [place] [address] | [place] [address] | | | | | | Phone: | Phone: | | | | | | [phone] | [phone] | | | | | | Fax: | Fax: | | | | | | [phone] | [phone] | +--------+--------+ + + + + Encounter Details +--------+---------+ + + + | Date | Type | Department | Care Team | Description | +--------+---------+ + + + | 02/11/ | Office | [facility] [place] | [place], | Coronary artery | | 2016 | Visit | CARDIOLOGY [address] | Janeen PAINTER AND DECORATOR APPRENTICE [address] | disease involving | | | | [place], | [place], | men[place] coronary | | | | [place] [address] | [place] [address] | artery of menominee | | | | [phone] | [phone] | heart without angina | | | [...] of 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 He sleeps on 1 pillow at [facility] without any shortness of breath. Overall, he has been doing well otherwise than the banner iety. MEDICAL, SURGICAL, AND PERSONAL HISTORY Past [...] DOSE, CALL 911 100 tablet 3 [place]-3 Fatty Acids (SALMON OIL-1000 PO) CAPS, [...] was found Confirmed by ANGELA MARADIAGA MD ([id number]) on 01/25/2017 6:45:26 AM LAB RESULTS reviewed [...] PLTEX 162 11/05/2016 I reviewed records from [facility] [...] is in class I of t he [place] Heart Association functional class. On physical examination there are no signs of fluid overload. 2. Non-critical Coronary artery disease involving [place] coronary a rtery of [place] heart without angina pectoris: A. Normal exercise [...] to go back in 3 days to [place] for an attempt of ablation under [...] a normal stable device function. Estimated remaining [facility] longevity is 3.5 years.. 5. [...] this chart may have been created with Discourse voice recognition software. Occasi onal wrong-word or [...] | | | | | | [place] [address] | | | | | | [phone] | | | | | | | | +--------+ + + + + | 05/01/ | Procedure | Cardiology | | | | 2019 | visit | | | | +--------+ + + + + | 05/01/ | Office | Cardiology | Silvia, | | | 2019 | Visit | | PAR[place] [address] | | | | | | [place], | | | | | | [place] [address] | | | | | | [phone] | | | | | | | | +--------+ + + + + | 05/21/ | Implant | Cardiology | Daljit Singletary, | Remote Device | | 2019 | Monitor | | [address] [place] | Interrogation | | | | | [place], | (Primary Dx); | | | | | [place] [address] | Pacemaker; | | | | | [phone] | Sinoatrial node | | | | | | dysfunction (HCC) | | | | | | with symptomatic | | | | | | bradycardia | +--------+ + + + + documented as of this encounter Visit Diagnoses + + | Diagnosis | + + | Coronary artery disease involving [place] coronary artery of menominee heart without | | angina pectoris - Primary | + + | Essential hypertension with goal blood pressure less than 130/80 | + + | Hyperlipidemia, mixed Mixed hyperlipidemia | + + documented in this encounter
--- OUTSIDE RECORDS SUMMARY | ~2020-04-15 | XMS | Clinical Summary ---
Demographics + + + | Address | [address] | | | [place] [address] | + + + | Home Phone | | + + + | Preferred Language | Unknown | + + + | Marital Status | | + + + | Sikh Affiliation | 1013 | + + + | Race | Unknown | + + + | Ethnic Group | Unknown | + + + Author + + + | Author | [facility] (Historical as of | | | 07-08-19) | + + + | Organization | [facility] (Historical as of | | | 07-08-19) [...] Providers + +------+ + | Care Maintenance Truck Driver Name | Role | Phone [...] + | AUTO INSURANCE | AUTO | [id number] | | | | | | INSURA | | | | | | | NCE | | | | | | | GENERI | | | | | | | C | | | | | + +--------+ +------+-------+ + | AUTO INSURANCE | AUTO | [id number] | | | | | | INSURA | [id number] | | | | | | NCE | | | | | | | GENERI | | | | | | | C | | | | | + +--------+ +------+-------+ + | MEDICARE | MEDICA | [id number] | | | [address] | | | RE | | | | [place], [place] [address] | | | IP-OP | | | | | + +--------+ +------+-------+ + | [facility] | [place] | [id number] | | | | | | | [...] | Self | [birth year] | Home: | [address] | | | al/Fam | | 9 | [address]- | [address] [place], [place] | | | [place] | | | [address] | [address] | + +--------+ +--------+ + + | AMILCAR GAY | Third | Self | [birth year] | Home: | [address] | | | [place] | | 9 | +- | [place], [place] | | | [place] | | | [phone] | [address] | | | ity | | | | | + +--------+ +--------+ + + | AMILCAR GAY | Third | Self | [birth year] | Home: | [address] | | | [place] | | 1960 | +- | [place], [place] | | | [place] | | | [address] | [address] | | | ity | | | | | + +--------+ +--------+ + +
--- OUTSIDE RECORDS SUMMARY | ~2020-04-15 | XMS | Encounter Summary ---
Demographics + + + | Address | [address] [place] [address] [address] | | | [place] [address] | + + + | Home Phone [...] [place] | | | | | [address] | | + + + + + Care Team Providers + +------+ + | Care Mangle Press Catcher Name | Role | Phone [...] | | Bradycardia | | | | [place], [place] | | | | | | [address] | | | | | | [phone] | | | +--------+------+ + + + [...] | [facility] | | [facility] [place] [address] | REGIONAL | | [place] [address] | LABORATORY | + + + + + + + + | Performing | Address | City/State/Zipcode | Phone Number | | Organization | | | | + + + + + | [facility] | [address] | [place] [address] | | | LABORATORY | | | [...] [facility] ([facility]) | | | [facility] [address] | | | [place] [address] | | + + + + + + + + | Performing | Address | City/State/Zipcode | Phone Number | | Organization | | | | + + + + + | [facility] | [address] | [place] [address] | | | LABORATORY | | | [...] | | | DEPARTMENT | | | AUSTRIAN | | | OF | | | [...] DEPARTMENT OF | [address] | [place] [address] | | | PATHOLOGY | [address] | | | + + + + + documented in this encounter Visit Diagnoses + + | Diagnosis | + + | Chest pain Chest pain, unspecified | + + | Bradycardia Other specified cardiac dysrhythmias | + + documented in this encounter"
--- OUTSIDE RECORDS SUMMARY | ~2020-04-15 | XMS | Encounter Summary ---
Demographics + + + | Address | [address] | | | [place] [address] | + + + | Home Phone [...] Providers + +------+ + | Care Sales Store Checker Name | Role | Phone | [...] 2018 | | GASTROENTEROLOGY | [address], [place] | about prep for | | | | [address] [place] | [address] [place], [place] | procedure) | | | | [address] [place], [place] | [address] | | | | | [address] | | | | | | [phone] | | | +--------+ + + + [...] | | | | | | [place] [address] | | | | | | [phone] | | | | | | | [...] | | | | | | [place] [address] | | | | | | [phone] | | | | | | | | +--------+ + + + + | 05/21/ | Implant | Cardiology | Daljit Singletary, | Remote Device | 2019 | Monitor | | [address] | Interrogation | | | | | [place], | (Primary Dx); | | | | | [place] [address] | Pacemaker; | | | | | [phone] | Sinoatrial node | | | | | | dysfunction (HCC) | | | | | | with symptomatic | | | | | | bradycardia | +--------+ + + + + documented as of this encounter Visit Diagnoses Not on filedocumented in this encounter"
--- OUTSIDE RECORDS SUMMARY | ~2020-04-15 | XMS | Encounter Summary ---
Demographics + + + | Address | [address] | | | [place] [address] | + + + | Home Phone [...] + + | 06/17/ | Hospital | [facility] | | | | 2007 | Encounter | MED CTR EMERGENCY | | | | | | [place] [address] | | | | | | [place] | | | | | | [address] | | | | | | [phone] | | | +--------+ + + + [...] | | | | | | [place] [address] | | | | | | [phone] | | | | | | | | +--------+ + + + + | 05/01/ | Procedure | Cardiology | | | | 2019 | visit | | | | +--------+ + + + + | 05/01/ | Office | Cardiology | [place], | | | 2019 | Visit | | [place] [address] | | | | | | [place], | | | | | | [place] [address] | | | | | | [phone] | | | | | | | | +--------+ + + + + | 05/21/ | Implant | Cardiology | Daljit Singletary, | Remote Device | 2019 | Monitor | | [address] [place] | Interrogation | | | | | [place], | (Primary Dx); | | | | | [place] [address] | Pacemaker; | | | | | [phone] | Sinoatrial node | | | | | | dysfunction (HCC) | | | | | | with symptomatic | | | | | | bradycardia | +--------+ + + + + documented as of this encounter Visit Diagnoses Not on filedocumented in this encounter"
--- OUTSIDE RECORDS SUMMARY | ~2020-04-15 | XMS | Encounter Summary ---
Demographics + + + | Address | [address] | | | [place] [address] | + + + | Home Phone [...] Providers + +------+ + | Care City Clerk Name | Role | Phone | [...] + | 03/24/ | Telephone | [facility] | [place], | Other (chest pain) | | 2018 | | CARDIOLOGY [address] | [place] [address] | | | | | [place], | [place], | | | | | [place] [address] | [place] [address] | | | | | [phone] | [phone] | | | | | | | [...] | | | | | | [place] [address] | | | | | | [phone] | | | | | | | [...] | | | | | | [place] [address] | | | | | | [phone] | | | | | | | | +--------+ + + + + | 05/21/ | Implant | Cardiology | Daljit Singletary, | Remote Device | 2019 | Monitor | | [address] | Interrogation | | | | | [place], | (Primary Dx); | | | | | [place] [address] | Pacemaker; | | | | | [phone] | Sinoatrial node | | | | | | dysfunction (HCC) | | | | | | with symptomatic | | | | | | bradycardia | +--------+ + + + + documented as of this encounter Visit Diagnoses Not on filedocumented in this encounter"
--- OUTSIDE RECORDS SUMMARY | ~2020-04-15 | XMS | Encounter Summary ---
Demographics + + + | Address | [address] | | | [place] [address] | + + + | Home Phone [...] Organization | [facility] | | | and [...] + | 06/27/ | Telephone | [facility] | Michael Amanda, | ED Follow-up (s/p | | 2014 | | MEDICINE [place] | DO [address] | [facility]) | | | | [address] | [place] | | | | | [place] | [address] | | | | | [address] | | | | | | [phone] | | | +--------+ + + + [...] | | | | | | [place] [address] | | | | | | [phone] | | | | | | | [...] | | | | | | [place] [address] | | | | | | [phone] | | | | | | | | +--------+ + + + + | 05/21/ | Implant | Cardiology | Daljit Singletary, | Remote Device | | 2019 | Monitor | | [facility] | Interrogation | | | | | [place], | (Primary Dx); | | | | | [place] [address] | Pacemaker; | | | | | [phone] | Sinoatrial node | | | | | | dysfunction (HCC) | | | | | | with symptomatic | | | | | | bradycardia | +--------+ + + + + documented as of this encounter Visit Diagnoses Not on filedocumented in this encounter"
--- OUTSIDE RECORDS SUMMARY | ~2020-04-15 | XMS | Encounter Summary ---
Demographics + + + | Address | [address] [place] [address] [address] | | | [place] [address] | + + + | Home Phone [...] [place] | | | | | [address] | | + + + + + Care Team Providers + +------+ + | Care Earth Sciences Professor Name | Role | Phone | [...] Chest pain | Farooq Almaguer, | Chh1 [address] | | | | | Bradycardia | DO [address] | [place] | | | | | Procedures | Yao Booth | Mailcode: | | | | | | Palak Desai | [facility] | | | | | TRANSTHORACI | [place], [place] | for Health | | | | | C | [address] | and Healing, | | | | | ECHOCARDIOGR | Phone: | Building 1 | | | | | AM, ADULT | [phone] | [place], [place] | | | | | | Fax: | [address] | | | | | | [phone] | Phone: | | | | | | | [phone] | +--------+--------+ + + + + Encounter Details +--------+ + + + + | Date | Type | Department | Care Team | Description | +--------+ + + + + | 02/03/ | Hospital | Cardiac | | | | 2010 | Encounter | Non-Invasive Testing | | | | | | at [facility] [address] | | | | | [address] Mailcode: [facility] | | | | | | [facility] | | | | | | and Healing, | | | | | | Building [address] | | | | | | [place], [place] | | | | | | [address] | | | | | | [phone] | | | +--------+ + + + [...]
--- OUTSIDE RECORDS SUMMARY | ~2020-04-15 | XMS | Encounter Summary ---
Demographics + + + | Address | [address] | | | [place] [address] | + + + | Home Phone [...] + +------+ + | Care Special Education Professor Name | Role | Phone [...] unspecified | [address] | | | | | type | [address] | [place], | | | | | Procedures | [place], | [place] | | | | | [place] | [place] [address] | [address] | | | | | Stress Test | Phone: | Phone: | | | | | (Vasodilator | [phone] | [phone] | | | | | ) CHG | Fax: | Fax: | | | | | MYOCARDIAL | [phone] | [phone] | | | | | SPECT | | | | | | | MULTIPLE | | | | | | | STUDIES MD | | | | | | | CV STRS TST | | | | | | | XERS&/OR RX | | | | | | | CONT ECG W/O | | | | | | | I&R MD | | | | | | [...] unspecified | [address] | [address] | | | | | type | [address] | [place], | | | | | Procedures | [place], | [place] | | | | | [place] | [place] [address] | [address] | | | | | Stress Test | Phone: | Phone: | | | | | (Vasodilator | [phone] | [phone] | | | | | ) CHG | Fax: | Fax: | | | | | MYOCARDIAL | [phone] | [phone] | | | | | SPECT | | | | | | | MULTIPLE | | | | | | | STUDIES MD | | | | | | | CV STRS TST | | | | | | | XERS&/OR RX | | | | | | | CONT ECG W/O | | | | | | | I&R MD | | | | | | [...] + + | 07/21/ | Hospital | [facility] | Daljit Singletary, | Chest pain, | | 2018 | Encounter | MED CTR NUCLEAR | MD [address] | unspecified type | | | | MEDICINE [address] | [address] [place], | | | | | [place] | [place] [address] | | | | | [place] [address] | [phone] | | | | | [phone] | | | | | | | [address] | | +--------+ + + + + [...] | | | | | | [place] [address] | | | | | | [phone] | | | | | | | [...] | | | | | | [place] [address] | | | | | | [phone] | | | | | | | | +--------+ + + + + | 05/21/ | Implant | Cardiology | Daljit Singletary, | Remote Device | 2019 | Monitor | | [address] | Interrogation | | | | | [place], | (Primary Dx); | | | | | [place] [address] | Pacemaker; | | | | | [phone] | Sinoatrial node | | | | [...] | | | | | doctor, Starting [facility] 07/21/18 at | | | | | [...] | | | Starting [facility] 07/21/18 at 0822, For | | | | | | | 1 dose, Nuclear Medicine | | | | | | + +-------+ + +---+---+ +---+---+ | | | +---+---+ documented in this encounter"
--- OUTSIDE RECORDS SUMMARY | ~2020-04-15 | XMS | Encounter Summary ---
Demographics + + + | Address | [address] | | | [place] [address] | + + + | Home Phone [...] Providers + +------+ + | Care Hydraulic Rockbreaker Operator Name | Role | Phone | + +------+ + | Kirk French MD | PCP | | + +------+ + Encounter Details +--------+ + + + + | Date | Type | Department | Care Team | Description | +--------+ + + + + | 11/16/ | Hospital | [facility] | Kirk French | Aneurysm (HCC) | | 2017 | Encounter | MED CTR ULTRASOUND | D, MD [address] | | | | | [address] [place] | [address] | | | | | [place], [place] | [place] [address] | | | | | [address] | [phone] | | | | | [phone] | | | | | | | [...] + + + +---------+ + + | Alum Bank-3 Fatty | CAPS, one capsule by | [...] | | | | | | [place] [address] | | | | | | [phone] | | | | | | | [...] | | | | | | [place] [address] | | | | | | [phone] | | | | | | | | +--------+ + + + + | 05/21/ | Implant | Cardiology | Daljit Singletary, | Remote Device | | 2020 | Monitor | | [facility] | Interrogation | | | | | [place], | (Primary Dx); | | | | | [place] [address] | Pacemaker; | | | | | [phone] | Sinoatrial node | | | | [...] Screening | Imaging | Routin | Aneurysm ([facility]) | 1 Occurrences | | | | e | | starting 11/16/2017 | | | | | | until 11/16/2017 | + +---------+--------+ + + documented as of this encounter Visit Diagnoses + + | Diagnosis | + + | Aneurysm (HCC) Aneurysm of unspecified site | + + documented in this encounter"
--- OUTSIDE RECORDS SUMMARY | ~2020-04-15 | XMS | Encounter Summary ---
Demographics + + + | Address | [address] | | | [place] [address] | + + + | Home Phone [...] Provider Unknown | | | | | [place], [place] | [phone] | | | | | [address] | | | | | | [phone] | | | +--------+ + + + [...] + + + +---------+ + + | Graft[place]-3 Fatty | CAPS, one capsule by | [...] | | | | | | | #[id number], exp 07/2016 | | | | | [...] | | | | | | [place] [address] | | | | | | [phone] | | | | | | | | +--------+ + + + + | 05/01/ | Procedure | Cardiology | | | | 2019 | visit | | | | +--------+ + + + + | 05/01/ | Office | Cardiology | [place], | | | 2019 | Visit | | [place] [address] | | | | | | [place], | | | | | | [place] [address] | | | | | | [phone] | | | | | | | | +--------+ + + + + | 05/21/ | Implant | Cardiology | Daljit Singletary, | Remote Device | | 2020 | Monitor | | [address] | Interrogation | | | | | [place], | (Primary Dx); | | | | | [place] [address] | Pacemaker; | | | | | [phone] | Sinoatrial node | | | | [...]
--- OUTSIDE RECORDS SUMMARY | ~2020-04-15 | XMS | Encounter Summary ---
Demographics + + + | Address | [address] | | | [place] [address] | + + + | Home Phone [...] Providers + +------+ + | Care Glove Parts Cutter Name | Role | Phone [...] | CARDIOLOGY [address] | card ) | | | | [place], | [place], | | | | | [place] [address] | [place] [address] | | | | | [phone] | [phone] | | | | | | | [...] W | | | | | | [place], | | | | | | [place] [address] | | | | | | [phone] | | | | | | | | +--------+ + + + + | 05/01/ | Procedure | Cardiology | | | | 2019 | visit | | | | +--------+ + + + + | 05/01/ | Office | Cardiology | [place], | | | 2019 | Visit | | [address] [address] | | | | | | [place], | | | | | | [place] [address] | | | | | | [phone] | | | | | | | | +--------+ + + + + | 05/21/ | Implant | Cardiology | Daljit Singletary, | Remote Device | | 2019 | Monitor | | [address] | Interrogation | | | | | [place], | (Primary Dx); | | | | | [place] [address] | Pacemaker; | | | | | [phone] | Sinoatrial node | | | | | | dysfunction (HCC) | | | | | | with symptomatic | | | | | | bradycardia | +--------+ + + + + documented as of this encounter Visit Diagnoses Not on filedocumented in this encounter"
--- OUTSIDE RECORDS SUMMARY | ~2020-04-15 | XMS | Encounter Summary ---
Demographics + + + | Address | [address] | | | [place] [address] | + + + | Home Phone [...] Providers + +------+ + | Care Panel Raiser Operator Name | Role | Phone | [...] [place] | | | | | [place], [place] | [address] | | | | | [address] | [place] [address] | | | | | [phone] | [phone] | | | | | | | [...] | | | | | | [place], | | | | | | [place] [address] | | | | | | [phone] | | | | | | | | +--------+ + + + + | 05/01/ | Procedure | Cardiology | | | | 2019 | visit | | | | +--------+ + + + + | 05/01/ | Office | Cardiology | Silvia, | | | 2019 | Visit | | [address] | | | | | | [place], | | | | | | [place] [address] | | | | | | [phone] | | | | | | | | +--------+ + + + + | 05/21/ | Implant | Cardiology | Daljit Singletary, | Remote Device | 2019 | Monitor | | MD [place] | Interrogation | | | | | [place], | (Primary Dx); | | | | | [place] [address] | Pacemaker; | | | | | [phone] | Sinoatrial node | | | | [...]
--- OUTSIDE RECORDS SUMMARY | ~2020-04-15 | XMS | Encounter Summary ---
Demographics + + + | Address | [address] | | | [place] [address] | + + + | Home Phone [...] Team Providers + +------+ + | Care Photoengraving Retoucher Name | Role | Phone | + [...] | | | | stenosis | L, PLASTER FORM MAKER [address] | | | | | | Procedures | [address] | | | | | | CT | [address] | | | | | | Myelography | [place], [place] | | | | | | Cervical | [address] | | | | | | Spine | Phone: | | | | | | | [phone] | | | | | | | Fax: | | | | | | | [phone] | | +--------+--------+ + + + + [...] + + | 06/04/ | Hospital | [facility] | Sariah, | Cervical spinal | | 2016 | Encounter | MED CTR [address] | [place] Mason PLASTER FORM MAKER [address] | stenosis | | | | [place], | [address] | | | | | [place] [address] | [place] [address] | | | | | [phone] | [phone] | | | | | | | [...] + + + +---------+ + + | Lexa-3 Fatty | CAPS, one capsule by | [...] | | | | | | [place] [address] | | | | | | [phone] | | | | | | | [...] | | | | | | [place] [address] | | | | | | [phone] | | | | | | | | +--------+ + + + + | 05/21/ | Implant | Cardiology | Daljit Singletary, | Remote Device | | 2019 | Monitor | | [address] [place] | Interrogation | | | | | [place], | (Primary Dx); | | | | | [place] [address] | Pacemaker; | | | | | [phone] | Sinoatrial node | | | | [...]
--- OUTSIDE RECORDS SUMMARY | ~2020-04-15 | XMS | Encounter Summary ---
Demographics + + + | Address | [address] | | | [place] [address] | + + + | Home Phone [...] Providers + +------+ + | Care Lumber Tailer Name | Role | Phone | [...] | | | | CENTER [address] [place] | [address] | | | | | [place] | [place] | | | | | [address] | [address] | | | | | [phone] | | | +--------+ + + + [...] + + + +---------+ + + | Bellerose-3 Fatty | CAPS, one capsule by | [...] | | | | | | | [place] coronary | | | | | | | artery of [place] | | | | | | | [...] | | | | | | [place], | | | | | | [place] [address] | | | | | | [phone] | | | | | | | | +--------+ + + + + | 05/01/ | Procedure | Cardiology | | | | 2019 | visit | | | | +--------+ + + + + | 05/01/ | Office | Cardiology | Silvia, | | | 2019 | Visit | | [place] W | | | | | | [place], | | | | | | [place] [address] | | | | | | [phone] | | | | | | | | +--------+ + + + + | 05/21/ | Implant | Cardiology | Daljit Singletary, | Remote Device | 2019 | Monitor | | MD Sim [place] [place] | Interrogation | | | | | [place], | (Primary Dx); | | | | | [place] [address] | Pacemaker; | | | | | [phone] | Sinoatrial node | | | | [...] [address] | [place] | [phone] | | [facility] | | [address] | | | - LABORATORY | | [...] + | [address] | [address] | [place] | [phone] | | [facility] | | [address] | | | - LABORATORY | | [...] use as of January 18, | | [facility] | | | | 2019. Check [...] [address] | [place] | [phone] | | [facility] | | [address] | | | - LABORATORY | | [...] | 0.92 | 0.70 - 1.30 | [facility] | | | | | mg/dL | [facility] | | | | | | MEDICAL | | | | | | CENTER - | | | | | | LABORATORY | | + + + + + + | eGFR if not | >60Comment: GLOMERULAR | >=60 | [facility] | | | | FILTRATION | mL/min/1.73m2 | [facility] | | | [place] | RATE,ESTIMATED | | MEDICAL | | | | mL/min/1.81v0Vgmq than | | CENTER - | | [...] ST. | [address] | [place], [place] | [phone] | | [facility] | | [address] | | | - LABORATORY | | [...] [address] | [place] | [phone] | | [facility] | | [address] | | | - LABORATORY | | [...] [address] | [place] | [phone] | | [facility] | | [address] | | | - LABORATORY | | [...] | | | | ANGELA MARADIAGA MD ([id number]) | | | | | | on [...] | | | | | Patient Address: [address] [place] [address] | | | | | | | [place] [address], | | | | | | + + + +------+---+---+ +---+---+ | | | +---+---+ documented in this encounter
--- OUTSIDE RECORDS SUMMARY | ~2020-04-15 | XMS | Encounter Summary ---
Demographics + + + | Address | [address] | | | [place] [address] | + + + | Home Phone [...] Providers + +------+ + | Care Automation Tech Name | Role | Phone | [...] | | | | | region | [address] | | | | | | Procedures | [address] | | | | | | CT | [place], [place] | | | | | | Myelography | [address] | | | | | | Lumbar Spine | Phone: | | | | | | | [phone] | | | | | | | Fax: | | | | | | | [phone] | | +--------+--------+ + + + + [...] | | | | | region | [address] | | | | | | Procedures | [address] | | | | | | CT | [place], [place] | | | | | | Myelography | [address] | | | | | | Lumbar Spine | Phone: | | | | | | | [phone] | | | | | | | Fax: | | | | | | | [phone] | | +--------+--------+ + + + + Encounter Details +--------+ + + + + | Date | Type | Department | Care Team | Description | +--------+ + + + + | 04/07/ | Hospital | [facility] | Pia Akhtar | Spinal stenosis, | | 2016 | Encounter | MED CTR [address] | MD [address] | lumbar region | | | | [place], | [address] | | | | | [place] [address] | [place] [address] | | | | | [phone] | [phone] | | | | | | | [...] W | | | | | | [place], | | | | | | [place] [address] | | | | | | [phone] | | | | | | | | +--------+ + + + + | 05/01/ | Procedure | Cardiology | | | | 2019 | visit | | | | +--------+ + + + + | 05/01/ | Office | Cardiology | Silvia, | | | 2019 | Visit | | [address] | | | | | | [place], | | | | | | [place] [address] | | | | | | [phone] | | | | | | | | +--------+ + + + + | 05/21/ | Implant | Cardiology | Daljit Singletary, | Remote Device | | 2019 | Monitor | | [address] [place] | Interrogation | | | | | [place], | (Primary Dx); | | | | | [place] [address] | Pacemaker; | | | | | [phone] | Sinoatrial node | | | | [...]
--- OUTSIDE RECORDS SUMMARY | ~2020-04-15 | XMS | Encounter Summary ---
Demographics + + + | Address | [address] | | | [place] [address] | + + + | Home Phone [...] + +------+ + | Care Health And Wellness Advisor Name | Role | Phone | + +------+ + PCP | Unavailable | + +------+ + Encounter Details +--------+ + + + + | Date | Type | Department | Care Team | Description | +--------+ + + + + | 06/23/ | [facility] | [facility] | Arthur Page MD | | | 2007 - | Encounter | MED CTR MED ONC | [address] [facility] | | | | | [address] [place] | [place] | | | 06/25/ | | [place] [address] | [address] | | | 2007 | | [phone] | | | +--------+ + + + [...] W | | | | | | [place], | | | | | | [place] [address] | | | | | | [phone] | | | | | | | | +--------+ + + + + | 05/01/ | Procedure | Cardiology | | | | 2019 | visit | | | | +--------+ + + + + | 05/01/ | Office | Cardiology | Silvia | | | 2019 | Visit | | [address] | | | | | | [place], | | | | | | [place] [address] | | | | | | [phone] | | | | | | | | +--------+ + + + + | 05/21/ | Implant | Cardiology | Daljit Singletary, | Remote Device | 2019 | Monitor | | MD [address] [place] | Interrogation | | | | | [place], | (Primary Dx); | | | | | [place] [address] | Pacemaker; | | | | | [phone] | Sinoatrial node | | | | | | dysfunction (HCC) | | | | | | with symptomatic | | | | | | bradycardia | +--------+ + + + + documented as of this encounter Visit Diagnoses Not on filedocumented in this encounter"
--- OUTSIDE RECORDS SUMMARY | ~2020-04-15 | XMS | Encounter Summary ---
Demographics + + + | Address | [address] | | | [place] [address] | + + + | Home Phone [...] Team Providers + +------+ + | Care Peripatologist Name | Role | Phone | + [...] [address] | | | | | | [place], [place] | (Fax) | | | | | [address] | | | | | | [phone] | | | +--------+ + + + [...] | | | | | | [place] [address] | | | | | | [phone] | | | | | | | | +--------+ + + + + | 05/01/ | Procedure | Cardiology | | | | 2019 | visit | | | | +--------+ + + + + | 05/01/ | Office | Cardiology | Silvia, | | | 2019 | Visit | | [place] [address] | | | | | | [place], | | | | | | [place] [address] | | | | | | [phone] | | | | | | | | +--------+ + + + + | 05/21/ | Implant | Cardiology | Daljit Singletary, | Remote Device | | 2019 | Monitor | | [address] [place] | Interrogation | | | | | [place], | (Primary Dx); | | | | | [place] [address] | Pacemaker; | | | | | [phone] | Sinoatrial node | | | | | | dysfunction (HCC) | | | | | | with symptomatic | | | | | | bradycardia | +--------+ + + + + documented as of this encounter Visit Diagnoses Not on filedocumented in this encounter"
--- OUTSIDE RECORDS SUMMARY | ~2020-04-15 | XMS | Encounter Summary ---
Demographics + + + | Address | [address] | | | [place] [address] | + + + | Home Phone [...] Providers + +------+ + | Care Personal Injury Specialist Name | Role | Phone | [...] + + | 09/13/ | Office | [facility] | Bahman Gant MD | Other dysphagia | | 2013 | Visit | OTOLARYNGOLOGY [address] | [address] [place] | (Primary Dx) | | | | [address] | [address] [place], | | | | | [place], [place] | [place] [address] | | | | | [address] | [phone] | | | | | [phone] | | | +--------+---------+ + + + [...] MD - 09/13/2013 5:46 PM PDTSee dictation #[id number] signed by Joseph Gant MD at 09/13/2013 5:52 PM Bahman Lamb MD - 09/13/2013 12:00 AM PDT ENT AND AUDIOLOGY [address] [facility] 210 [place] [address] FAX: [phone] OFFICE VISIT The patient gives a history [...] Gant MD GM / MS JOB #: [id number] signed by Bahman Gant MD at 09/14/2013 [...] | | | | | | [place] [address] | | | | | | [phone] | | | | | | | | +--------+ + + + + | 05/01/ | Procedure | Cardiology | | | 2019 | visit | | | | +--------+ + + + + | 05/01/ | Office | Cardiology | Silvia, | | | 2019 | Visit | | [address] | | | | | | [place], | | | | | | [place] [address] | | | | | | [phone] | | | | | | | | +--------+ + + + + | 05/21/ | Implant | Cardiology | Daljit Singletary, | Remote Device | | 2019 | Monitor | | MD Sim [facility] | Interrogation | | | | | [place], | (Primary Dx); | | | | | [place] [address] | Pacemaker; | | | | | [phone] | Sinoatrial node | | | | [...]
--- OUTSIDE RECORDS SUMMARY | ~2020-04-15 | XMS | Encounter Summary ---
Demographics + + + | Address | [address] | | | [place] [address] | + + + | Home Phone [...] Providers + +------+ + | Care Cutter Gas Name | Role | Phone | [...] + + | 09/01/ | Office | [facility] | [place], | Ascending thoracic | | 2015 | Visit | CARDIOLOGY [address] | [place] [address] | aortic aneurysm | | | | [place], | [place], | ([facility]) (Primary Dx); | | | | [place] [address] | [place] [address] | Coronary artery | | | | [phone] | [phone] | disease involving | | | | | | elem [...] of non-critical coronary artery d isease involving elem coronary artery of elem heart without angina pectoris, essential h ypertension, [...] of chest pain while nelly ng [facility], so he took some sublingual nitroglycerin [...] Preventative health care Coronary artery disease involving elem coronary artery of elem heart without angina pectoris Cannabis abuse, daily [...] every evening 90 tablet 3 [facility] Products [...] 3rd dose, call 911 100 tablet 3 [place]-3 Fatty Acids (SALMON OIL-1000 PO) CAPS, one capsule by mouth daily twice daily ONE TOUCH DELICA LANCETS [facility] [place] Check glucose [...] [facility] ch is summarized in the HPI. [...] pressure. 2. Non-critical Coronary artery disease involving elem coronary artery of elem heart [facility] angina pectoris: A. Normal exercise [...] to go back in 3 days to [place] for an attempt of ablation under general [...] this chart may have been created with [employer] voice recognition software. Occasi onal wrong-word or [...] | | | | | | [place] [address] | | | | | | [phone] | | | | | | | | +--------+ + + + + | 05/01/ | Procedure | Cardiology | | | 2019 | visit | | | | +--------+ + + + + | 05/01/ | Office | Cardiology | Silvia, | | | 2019 | Visit | | PARISA [place] [address] | | | | | | [place], | | | | | | [place] [address] | | | | | | [phone] | | | | | | | | +--------+ + + + + | 05/21/ | Implant | Cardiology | Daljit Singletary, | Remote Device | | 2019 | Monitor | | [address] [place] | Interrogation | | | | | [place], | (Primary Dx); | | | | | [place] [address] | Pacemaker; | | | | | [phone] | Sinoatrial node | | | | [...] elem heart without | | angina pectoris | + + | Essential hypertension with goal blood pressure less than 130/80 | + + | Hyperlipidemia, mixed Mixed hyperlipidemia | + + documented in this encounter
--- OUTSIDE RECORDS SUMMARY | ~2020-04-15 | XMS | Encounter Summary ---
Demographics + + + | Address | [address] | | | [place] [address] | + + + | Home Phone [...] Providers + +------+ + | Care Savings Counselor Name | Role | Phone | [...] | [address] [place] | [place] [address] | | | | | [address] | [phone] | | | | | [phone] | | | +--------+ + + + [...] | | | | | | [place] [address] | | | | | | [phone] | | | | | | | | +--------+ + + + + | 05/01/ | Procedure | Cardiology | | | | 2019 | visit | | | | +--------+ + + + + | 05/01/ | Office | Cardiology | Silvia, | | | 2019 | Visit | | [address] [address] | | | | | | [place], | | | | | | [place] [address] | | | | | | [phone] | | | | | | | | +--------+ + + + + | 05/21/ | Implant | Cardiology | Daljit Singletary, | Remote Device | 2019 | Monitor | | MD Sim [place] | Interrogation | | | | | [place], | (Primary Dx); | | | | | [place] [address] | Pacemaker; | | | | | [phone] | Sinoatrial node | | | | | | dysfunction (HCC) | | | | | | with symptomatic | | | | | | bradycardia | +--------+ + + + + documented as of this encounter Visit Diagnoses Not on filedocumented in this encounter"
--- OUTSIDE RECORDS SUMMARY | ~2020-04-15 | XMS | Encounter Summary ---
Demographics + + + | Address | [address] | | | [place] [address] | + + + | Home Phone [...] Providers + +------+ + | Care Editing Internship Name | Role | Phone | [...] | | CARDIOLOGY [address] | Janeen, HOT TOP LINER [address] | Clearance) | | | | [place], | [place], | | | | | [place] [address] | [place] [address] | | | | | [phone] | [phone] | | | | | | | [...] | | | | | | [place] [address] | | | | | | [phone] | | | | | | | | +--------+ + + + + | 05/01/ | Procedure | Cardiology | | | | 2019 | visit | | | | +--------+ + + + + | 05/01/ | Office | Cardiology | Silvia, | | | 2019 | Visit | | PARISA [place] [address] | | | | | | [place], | | | | | | [place] [address] | | | | | | [phone] | | | | | | | | +--------+ + + + + | 05/21/ | Implant | Cardiology | Daljit Singletary, | Remote Device | 2019 | Monitor | | [address] [facility] | Interrogation | | | | | [place], | (Primary Dx); | | | | | [place] [address] | Pacemaker; | | | | | [phone] | Sinoatrial node | | | | | | dysfunction (HCC) | | | | | | with symptomatic | | | | | | bradycardia | +--------+ + + + + documented as of this encounter Visit Diagnoses Not on filedocumented in this encounter"
--- OUTSIDE RECORDS SUMMARY | ~2020-04-15 | XMS | Encounter Summary ---
Demographics + + + | Address | [address] | | | [place] [address] | + + + | Home Phone [...] Providers + +------+ + | Care Electrical Assembler Name | Role | Phone | [...] | | | | [place] | [address] | | | | | [address] | | | | | | [phone] | | | +--------+ + + + [...] W | | | | | | [place], | | | | | | [place] [address] | | | | | | [phone] | | | | | | | | +--------+ + + + + | 05/01/ | Procedure | Cardiology | | | | 2019 | visit | | | | +--------+ + + + + | 05/01/ | Office | Cardiology | Silvia, | | | 2019 | Visit | | [address] W | | | | | | [place], | | | | | | [place] [address] | | | | | | [phone] | | | | | | | | +--------+ + + + + | 05/21/ | Implant | Cardiology | Daljit Singletary, | Remote Device | 2019 | Monitor | | MD [address] | Interrogation | | | | | [place], | (Primary Dx); | | | | | [place] [address] | Pacemaker; | | | | | [phone] | Sinoatrial node | | | | | | dysfunction (HCC) | | | | | | with symptomatic | | | | | | bradycardia | +--------+ + + + + documented as of this encounter Visit Diagnoses Not on filedocumented in this encounter"
--- OUTSIDE RECORDS SUMMARY | ~2020-04-15 | XMS | Encounter Summary ---
Demographics + + + | Address | [address] | | | [place] [address] | + + + | Home Phone [...] Team Providers + +------+ + | Care Embossing Press Operator Name | Role | Phone | + +------+ + PCP | Unavailable | + +------+ + Encounter Details +--------+ + + + + | Date | Type | Department | Care Team | Description | +--------+ + + + + | 06/14/ | [facility] | [facility] | Kennethshaistatesha Shaistakenneth, | | | 2008 - | Encounter | MED CTR MP INTRA OP | [address] [place] | | | | | [address] [place] | [address] [place], | | | 06/15/ | | [place] | [place] [address] | | | 2008 | | [address] | [phone] | | | | | [phone] | | | +--------+ + + + [...] W | | | | | | [address] [place], | | | | | | [place] [address] | | | | | | [phone] | | | | | | | | +--------+ + + + + | 05/01/ | Procedure | Cardiology | | | | 2019 | visit | | | | +--------+ + + + + | 05/01/ | Office | Cardiology | Silvia, | | | 2019 | Visit | | [place] W | | | | | | [address] [place], | | | | | | [place] [address] | | | | | | [phone] | | | | | | | | +--------+ + + + + | 05/21/ | Implant | Cardiology | Daljit Singletary, | Remote Device | | 2019 | Monitor | | MD [address] [place] [address] [place] | Interrogation | | | | | [place], | (Primary Dx); | | | | | [place] [address] | Pacemaker; | | | | | [phone] | Sinoatrial node | | | | | | dysfunction (HCC) | | | | | | with symptomatic | | | | | | bradycardia | +--------+ + + + + documented as of this encounter Visit Diagnoses Not on filedocumented in this encounter"
--- OUTSIDE RECORDS SUMMARY | ~2020-04-15 | XMS | Encounter Summary ---
Demographics + + + | Address | [address] | | | [place] [address] | + + + | Home Phone [...] Refill | | 2012 | | [facility] | DO [address] | | | | | [address] | [place] | | | | | [place] | [address] | | | | | [address] | | | | | | [phone] | | | +--------+--------+ + + + [...] | | | | | | [place] [address] | | | | | | [phone] | | | | | | | [...] | | | | | | [place] [address] | | | | | | [phone] | | | | | | | | +--------+ + + + + | 05/21/ | Implant | Cardiology | Daljit Singletary, | Remote Device | | 2019 | Monitor | | [facility] | Interrogation | | | | | [place], | (Primary Dx); | | | | | [place] [address] | Pacemaker; | | | | | [phone] | Sinoatrial node | | | | | | dysfunction (HCC) | | | | | | with symptomatic | | | | | | bradycardia | +--------+ + + + + documented as of this encounter Visit Diagnoses Not on filedocumented in this encounter"
--- OUTSIDE RECORDS SUMMARY | ~2020-04-15 | XMS | Encounter Summary ---
Demographics + + + | Address | [address] | | | [place] [address] | + + + | Home Phone [...] Providers + +------+ + | Care Rn Staff Name | Role | Phone | [...] [address] | | | | | | [place], [place] | (Fax) | | | | | [address] | | | | | | [phone] | | | +--------+ + + + [...] | | | | | | [place] [address] | | | | | | [phone] | | | | | | | | +--------+ + + + + | 05/01/ | Procedure | Cardiology | | | | 2019 | visit | | | | +--------+ + + + + | 05/01/ | Office | Cardiology | Silvia, | | | 2019 | Visit | | [place] [address] | | | | | | [place], | | | | | | [place] [address] | | | | | | [phone] | | | | | | | | +--------+ + + + + | 05/21/ | Implant | Cardiology | Daljit Singletary, | Remote Device | | 2019 | Monitor | | [address] | Interrogation | | | | | [place], | (Primary Dx); | | | | | [place] [address] | Pacemaker; | | | | | [phone] | Sinoatrial node | | | | | | dysfunction (HCC) | | | | | | with symptomatic | | | | | | bradycardia | +--------+ + + + + documented as of this encounter Visit Diagnoses Not on filedocumented in this encounter"
--- OUTSIDE RECORDS SUMMARY | ~2020-04-15 | XMS | Clinical Summary ---
Demographics + + + | Address | [address] | | | [place] [address] | + + + | Home Phone [...] + +------+ + | Care Auto Body Service Mechanic Name | Role | Phone | [...] | | | + + +--------+---+------+------+-------+ | [place]-3 Fatty | CAPS, one capsule by [...] | | | | | | | an[place]on coronary | | | | | | | | artery of [place] | | | | | | | [...] automatically from request for surgery | | [id number] | + + + + + | Diarrhea, unspecified type | 01/15/2020 | + + + + + | Overview: Added automatically from request for surgery | | [id number] | + + + + + | Unintentional weight loss | 01/15/2020 | + + + + + | Overview: Added automatically from request for surgery | | [id number] | + + + + + | Opioid type dependence, continuous | 01/15/2020 | + + + + + | Overview: Added automatically from request for surgery | | [id number] | + + + + + | Allergy to opioid analgesic | 01/15/2020 | + + + + + | Overview: Added automatically from request for surgery | | [id number] | + + + + + | [...] Overview: Lower back injury (From [facility]) 1980 1984 | + + + + [...] + + | Coronary artery disease involving [place]on coronary artery of | 12/21/2013 | | angoon heart without angina pectoris | | + [...] | | completely be ruled out.[facility] 12/25/13, shows non critical coronary | | [...] back in 3 days to | | [place] for an attempt of ablation under general [...] IMPLANTED GENERATOR | | Medtronic DDD [id number] [id number] 06/14/09 RV LEAD Medtronic Active | | Bipolar CapSureFix 4076 [id number] 06/14/09 A LEAD Medtronic | | Active Bipolar CapSurFix 4076 [id number] 06/14/09 | + + + +---+ | [...] | Heart Cath, 02/29/2012, LVEF is 65%, [facility], Daljit Gemini, | | [facility] Myocardial Gated Stress Test, 05/25/2009, EF 53 | | % during rest and 52% during stress. [facility], | | [place], [place].Persantine Sestamibi Stress Test, 06/14/2008, LVEF is | | 60%, [facility], Daljit MorenowanL 12/25/13, shows noncritical | [...] CAD noted | | on [facility] from 2013, no EKG changes, and negative [...] + + | Mother | | | [place] | | | | (Age | | [...] W | | | | | | [place], | | | | | | [place] [address] | | | | | | [phone] | | | | | | | | +--------+ + + + + | 05/01/ | Procedure | Cardiology | | | | 2019 | visit | | | | +--------+ + + + + | 05/01/ | Office | Cardiology | Silvia, | | | 2019 | Visit | | [place] [address] | | | | | | [place], | | | | | | [place] [address] | | | | | | [phone] | | | | | | | | +--------+ + + + + | 05/21/ | Implant | Cardiology | Daljit Singletary, | Remote Device | 2019 | Monitor | | MD Sim [place] | Interrogation | | | | | [facility] [place], | (Primary Dx); | | | | | [place] [address] | Pacemaker; | | | | | [phone] | Sinoatrial node | | | | [...] | CAMERON BARNES | | 09/27/ | [id number] | | 2232 - [id number]: | | Ureter | INCORPORATE | | 2020 | / | | Qty: 1 on 04/13/2019 by | | | D | | | /[id number] | | Matthew Uriarte MD at | | | | | | 57 | | [facility] | | | | | | | [facility] | | | | | | [...] remote PDF scanned into | | | [facility] for remote interrogation results. Data [...] +--------+ +---------+--------+ | MEDICARE | MEDICA | [id number] | 01/21/20 | [phone] | | Medica | | | RE | | 01-Pre | 5 | | re | | | PART A | | sent | | | | | | AND B | | | | | | + +--------+ +--------+ +---------+--------+ | MEDICARE | MEDICA | [id number] | 01/21/20 | [phone] | | Medica | | | RE | | 01-Pre | 5 | | re | | | PART A | | sent | | | | | | AND B | | | | | | + +--------+ +--------+ +---------+--------+ | AARP | AARP | [id number] | | [phone] | | Indemn | | | MDCR | | 016-Pr | 0 | | ity | | | SUPPL | | esent | | | | + +--------+ +--------+ +---------+--------+ | AARP | AARP | [id number] | 11/22/19 | [phone] | | Indemn [...] Person | Self | [birth year] | [address] | | Kirk | cristo/Per | | 9 | [phone] | [place] | | | roxanne | | | 8 (Home) | [address] | + +--------+ +--------+ + + | Moe Sanchez | Person | Self | [birth year] | | [address] | | [place] | al/Fam | | 1960 | [phone] | Dr [place] | | | roxanne | | | 8 (Home) | [address] | + +--------+ +--------+ + + | Moe Sanchez | Third | Self | | | [address] | | Kirk | Constitution Party | | 1960 | [phone] | [address] [place] | | | [place] | | | 3 ([place]) | [address] | | | ity | | | | | + +--------+ +--------+ + + Advance Directives + + + + + | Type | Date Recorded | Patient | Explanation | | | | Brush Loader And Handle Attacher | | + + + + + | Power of | | | | | Siding Installer | | | | + + + [...]
--- OUTSIDE RECORDS SUMMARY | ~2020-04-15 | XMS | Encounter Summary ---
Demographics + + + | Address | [address] | | | [place] [address] | + + + | Home Phone [...] Providers + +------+ + | Care Pot Operator Name | Role | Phone | [...] [address] | | | | | | [place], [place] | (Fax) | | | | | [address] | | | | | | [phone] | | | +--------+ + + + [...] | | | | | | [place] [address] | | | | | | [phone] | | | | | | | | +--------+ + + + + | 05/01/ | Procedure | Cardiology | | | | 2019 | visit | | | | +--------+ + + + + | 05/01/ | Office | Cardiology | Silvia, | | | 2019 | Visit | | [place] [address] | | | | | | [place], | | | | | | [place] [address] | | | | | | [phone] | | | | | | | | +--------+ + + + + | 05/21/ | Implant | Cardiology | Daljit Singletary, | Remote Device | | 2019 | Monitor | | [address] [place] | Interrogation | | | | | [place], | (Primary Dx); | | | | | [place] [address] | Pacemaker; | | | | | [phone] | Sinoatrial node | | | | | | dysfunction (HCC) | | | | | | with symptomatic | | | | | | bradycardia | +--------+ + + + + documented as of this encounter Visit Diagnoses Not on filedocumented in this encounter"
--- OUTSIDE RECORDS SUMMARY | ~2020-04-15 | XMS | Encounter Summary ---
Demographics + + + | Address | [address] [place] [address] [address] | | | [place] [address] | + + + | Home Phone [...] [place] | | | | | [address] | | + + + + + Care Team Providers + +------+ + | Care Railroad Watchman Name | Role | Phone | [...] | | [address] | [facility] [place] | | | | | Mailcode: [place] | [address] | | | | | for Health and | [phone] | | | | | [facility] | | | | | | [place], [place] | | | | | | [address] | | | | | | [phone] | | | +--------+ + + + [...]
--- OUTSIDE RECORDS SUMMARY | ~2020-04-15 | XMS | Encounter Summary ---
Demographics + + + | Address | [address] | | | [place] [address] | + + + | Home Phone [...] Team Providers + +------+ + | Care L Tacker Name | Role | Phone | [...] | 05/08/ | Telephone | [facility] [place] | mEmanuel Daniel MD | Other | | 2019 | | GASTROENTEROLOGY | [address], [place] | | | | | [address] [place] | [address] [place], [place] | | | | | [address] [place], [place] | [address] | | | | | [address] | | | | | | [phone] | | | +--------+ + + + [...] | | | | | | [place] [address] | | | | | | [phone] | | | | | | | | +--------+ + + + + | 05/01/ | Procedure | Cardiology | | | | 2020 | visit | | | | +--------+ + + + + | 06/10/ | Office | Cardiology | [place]via, | | | 2019 | Visit | | [place] [address] | | | | | | [place], | | | | | | [place] [address] | | | | | | [phone] | | | | | | | | +--------+ + + + + | 05/21/ | Implant | Cardiology | Daljit Singletary, | Remote Device | 2019 | Monitor | | [address] | Interrogation | | | | | [place], | (Primary Dx); | | | | | [place] [address] | Pacemaker; | | | | | [phone] | Sinoatrial node | | | | | | dysfunction (HCC) | | | | | | with symptomatic | | | | | | bradycardia | +--------+ + + + + documented as of this encounter Visit Diagnoses Not on filedocumented in this encounter"
--- OUTSIDE RECORDS SUMMARY | ~2020-04-15 | XMS | Encounter Summary ---
Demographics + + + | Address | [address] | | | [place] [address] | + + + | Home Phone [...] Providers + +------+ + | Care Manager Proposal Name | Role | Phone | + [...] | (Fax) | | | | | [address] | | | | | | [phone] | | | +--------+ + + + [...] | | | | | | [place] [address] | | | | | | [phone] | | | | | | | [...] | | | | | | [place] [address] | | | | | | [phone] | | | | | | | | +--------+ + + + + | 05/21/ | Implant | Cardiology | Daljit Singletary, | Remote Device | | 2019 | Monitor | | [address] [place] | Interrogation | | | | | [place], | (Primary Dx); | | | | | [place] [address] | Pacemaker; | | | | | [phone] | Sinoatrial node | | | | | | dysfunction (HCC) | | | | | | with symptomatic | | | | | | bradycardia | +--------+ + + + + documented as of this encounter Visit Diagnoses Not on filedocumented in this encounter"
--- OUTSIDE RECORDS SUMMARY | ~2020-04-15 | XMS | Encounter Summary ---
Demographics + + + | Address | [address] | | | [place] [address] | + + + | Home Phone [...] Providers + +------+ + | Care Campus Ambassador Name | Role | Phone | + +------+ + PCP | Unavailable | + +------+ + Encounter Details +--------+ + + + + | Date | Type | Department | Care Team | Description | +--------+ + + + + | 07/20/ | [facility] | [facility] | Hunter Antunez, | | | 2009 - | Encounter | MED CTR MED ONC | [address] | | | | | [address] [place] | [place] | | | 07/24/ | | [place] [address] | [address] | | | 2009 | | [phone] | | | +--------+ + + + [...] W | | | | | | [address] [place], | | | | | | [place] [address] | | | | | | [phone] | | | | | | | | +--------+ + + + + | 05/01/ | Procedure | Cardiology | | | | 2019 | visit | | | | +--------+ + + + + | 05/01/ | Office | Cardiology | [place] | | | 2019 | Visit | | [place] [address] | | | | | | [place], | | | | | | [place] [address] | | | | | | [phone] | | | | | | | | +--------+ + + + + | 05/21/ | Implant | Cardiology | Daljit Singletary, | Remote Device | 2019 | Monitor | | MD [address] [place] | Interrogation | | | | | [place], | (Primary Dx); | | | | | [place] [address] | Pacemaker; | | | | | [phone] | Sinoatrial node | | | | | | dysfunction (HCC) | | | | | | with symptomatic | | | | | | bradycardia | +--------+ + + + + documented as of this encounter Visit Diagnoses Not on filedocumented in this encounter"
--- OUTSIDE RECORDS SUMMARY | ~2020-04-15 | XMS | Encounter Summary ---
Demographics + + + | Address | [address] | | | [place] [address] | + + + | Home Phone [...] Team Providers + +------+ + | Care Vendor Management Associate Name | Role | Phone [...] 2012 | | Conversion Location | [address] | | | | | TRACIE TINEO [facility] | [address] [place], | | | | | [place], [place] | [place] [address] | | | | | [address] | [phone] | | | | | [phone] | | | +--------+ + + + [...] | | | | | | [place] [address] | | | | | | [phone] | | | | | | | | +--------+ + + + + | 05/01/ | Procedure | Cardiology | | | | 2019 | visit | | | | +--------+ + + + + | 05/01/ | Office | Cardiology | [place], | | | 2019 | Visit | | [place] [address] | | | | | | [place], | | | | | | [place] [address] | | | | | | [phone] | | | | | | | | +--------+ + + + + | 05/21/ | Implant | Cardiology | Daljit Singletary, | Remote Device | 2019 | Monitor | | [address] [place] | Interrogation | | | | | [place], | (Primary Dx); | | | | | [place] [address] | Pacemaker; | | | | | [phone] | Sinoatrial node | | | | | | dysfunction (HCC) | | | | | | with symptomatic | | | | | | bradycardia | +--------+ + + + + documented as of this encounter Visit Diagnoses Not on filedocumented in this encounter"
--- OUTSIDE RECORDS SUMMARY | ~2020-04-15 | XMS | Encounter Summary ---
Demographics + + + | Address | [address] | | | [place] [address] | + + + | Home Phone [...] Providers + +------+ + | Care Campaign Analyst Name | Role | Phone | + +------+ + | Kirk French MD | PCP | | + +------+ + Encounter Details +--------+ + + + + | Date | Type | Department | Care Team | Description | +--------+ + + + + | 01/18/ | Hospital | [facility] | Conversion | Diagnosis unknown | | 2017 | Encounter | CONVERSION DE[address] | Transaction, | | | | | [address] | Provider Unknown | | | | | [place], [place] | [phone] | | | | | [address] | | | | | | [phone] | | | +--------+ + + + [...] + + + +---------+ + + | [employer] Fat[employer] | CAPS, one capsule by [...] | | | | | | [place] [address] | | | | | | [phone] | | | | | | | | +--------+ + + + + | 05/01/ | Procedure | Cardiology | | | | 2019 | visit | | | | +--------+ + + + + | 05/01/ | Office | Cardiology | [place], | | | 2019 | Visit | | [address] | | | | | | [place], | | | | | | [place] [address] | | | | | | [phone] | | | | | | | | +--------+ + + + + | 05/21/ | Implant | Cardiology | Daljit Singletary, | Remote Device | | 2019 | Monitor | | [facility] | Interrogation | | | | | [place], | (Primary Dx); | | | | | [place] [address] | Pacemaker; | | | | | [phone] | Sinoatrial node | | | | [...]
--- OUTSIDE RECORDS SUMMARY | ~2020-04-15 | XMS | Encounter Summary ---
Demographics + + + | Address | [address] | | | [place] [address] | + + + | Home Phone [...] Providers + +------+ + | Care Assistant Track And Field Coach Name | Role | Phone | [...] | | | | [place] | [address] | | | | | [address] | | | | | | [phone] | | | +--------+ + + + [...] W | | | | | | [place], | | | | | | [place] [address] | | | | | | [phone] | | | | | | | | +--------+ + + + + | 05/01/ | Procedure | Cardiology | | | | 2019 | visit | | | | +--------+ + + + + | 05/01/ | Office | Cardiology | [place], | | | 2019 | Visit | | PARISA Vernon W | | | | | | [place], | | | | | | [place] [address] | | | | | | [phone] | | | | | | | | +--------+ + + + + | 05/21/ | Implant | Cardiology | Daljit Singletary, | Remote Device | 2019 | Monitor | | MD Chiquis [address] | Interrogation | | | | | [place], | (Primary Dx); | | | | | [place] [address] | Pacemaker; | | | | | [phone] | Sinoatrial node | | | | | | dysfunction (HCC) | | | | | | with symptomatic | | | | | | bradycardia | +--------+ + + + + documented as of this encounter Visit Diagnoses Not on filedocumented in this encounter"
--- OUTSIDE RECORDS SUMMARY | ~2020-04-15 | XMS | Encounter Summary ---
Demographics + + + | Address | [address] [place] [address] [address] | | | [place] [address] | + + + | Home Phone [...] [place] | | | | | [address] | | + + + + + Care Team Providers + +------+ + | Care Pool Finisher Name | Role | Phone | [...] Chest pain | Farooq Almaguer, | Ch[address] | | | | | Bradycardia | DO [address] | [address] | | | | | Procedures | [address] | Mailcode: | | | | | | [place] | [facility] | | | | | TRANSTHORACI | [place], [place] | for Health | | | | | C | [address] | and Healing, | | | | | ECHOCARDIOGR | Phone: | Building 1 | | | | | AM, ADULT | [phone] | [place], [place] | | | | | | Fax: | [address] | | | | | | [phone] | Phone: | | | | | | | [phone] | +--------+--------+ + + + + Reason [...] | | | | | | | [place] [address] | | | | | | | Phone: | | | | | | | [phone] | | | | | | | Fax: | | | | | | | [phone] | | +--------+--------+ + + + + Encounter Details +--------+---------+ + + + | Date | Type | Department | Care Team | Description | +--------+---------+ + + + | 02/03/ | Office | Cardiology General | Arlette Drew, | Chest pain (Primary | | 2010 | Visit | at [facility] [address] | MD | Dx); Bradycardia; | | | | Ave Mailcode: CH7C | | Pacemaker | | | | [facility] | | | | | | and Healing, | | | | | | Building | | | | | | Floor [place], [place] | | | | | | [address] | | | | | | [phone] | | | +--------+---------+ + + + [...] per Dr. Drew's note. Farooq Jamil DO Restorative Rehab Aide Clinical filling hauler weaving/ Division of Cardiovascular Medicine Yajaira Borges, [place] - 02/09/2011 12:59 PM PDT PACEMAKER HISTORY Primary Care Provider: Darion Holden DO Lands Resource Manager: Arlette Drew MD Moe Sanchez is [...] chamber permanent pacemaker implantation on 06/14/09 in [place], Chronic smoker, mild DIDIER, bip olar disorder with anxiety who presents for second opinion regarding his syncopal episodes. Pt. started noticing dizzy spells and episodes of syncope about 3 years ago , pacemaker was put at the recommendation of Lands Resource Manager Dr. Singletary from [place]. [place]. Pt. states lala bhatti was put>1 [...] form tilt table testing but NA at [facility] May need to involve endocrine and [...] Dr. Omero DREW MD CARDIOLOGY - GENERAL [address] Mailcode: [facility], 9th Floor [facility] and [...] ([facility] [facility]) | [facility] | | [facility] [address] [address] [facility] | REGIONAL | | [place] [address] | LABORATORY | + + + + + + + + | Performing | Address | City/State/Zipcode | Phone Number | | Organization | | | | + + + + + | [facility] | [address] | [place] [address] | | | LABORATORY | | | [...] RLB ([address] [facility]) | | | [facility] [place] [address] | | | [address] [place] [facility] [address] | | + + + + + + + + | Performing | Address | City/State/Zipcode | Phone Number | | Organization | | | | + + + + + | [facility] | [address] | [place] [address] | | | LABORATORY | | | [...] | | | DEPARTMENT | | | AFGHAN | | | OF | | | [...] | + + + + + | [facility] DEPARTMENT | [address] | [place] [address] | | | PATHOLOGY | [address] [...] DEPT OF | [address] | [place], [place] | | | CARDIOLOGY | [address] | [address] | | + + + + + [...] DEPT OF | [address] | [place], [place] | | | CARDIOLOGY | [address] | [address] | | + + + + + [...] view image for the detailed interpretation from [place] results. | CARDIOLOGY | + + + + + + + + | Performing | Address | City/State/Zipcode | Phone Number | | Organization | | | | + + + + + | [facility] DE[facility] OF | [address] | [place], [place] | | | CARDIOLOGY | [address] | [address] | | + + + + + documented in this encounter Visit Diagnoses + + | Diagnosis | + + | Chest pain - Primary Chest pain, unspecified | + + | Bradycardia Other specified cardiac dysrhythmias | + + | Pacemaker Cardiac pacemaker in situ | + + documented in this encounter
--- OUTSIDE RECORDS SUMMARY | ~2020-04-15 | XMS | Encounter Summary ---
Demographics + + + | Address | [address] | | | [place] [address] | + + + | Home Phone [...] Providers + +------+ + | Care Appellate Law Clerk Name | Role | Phone [...] + | 06/23/ | Office | [facility] | [place], | Ascending thoracic | | 2016 | Visit | CARDIOLOGY [address] | PAR[place] [address] | aortic aneurysm | | | | [place], | [place], | ([facility]) (Primary Dx); | | | | [place] [address] | [place] [address] | Coronary artery | | | | [phone] | [phone] | disease involving | | | | | | pilot point coronary | | | | | | artery of pilot point | | | | | | heart [...] in office in 6 months. hgabby, Janeen, FIELD SAMPLING TECHNICIAN - 06/23/2016 12:45 PM PDT PATIENT NAME: Moe Sanchez : 1960: AGE: 56 y.o. PRIMARY CARE: Kirk French MD OUTPATIENT FOLLOW UP VISIT Date of Service: 06/23/2016 HISTORY OF PRESENT ILLNESS: Moe Sanchez is a 56 y.o. male with a history of non-critical coronary artery d isease involving pilot point coronary artery of pilot [place] heart without angina pectoris, essential h ypertension, [...] health care Coronary artery disease involving pilot point coronary artery of pilot point heart without angina pectoris Cannabis abuse, daily [...] 3rd dose, call 911 100 tablet 3 [place]-3 Fatty Acids (SALMON OIL-1000 PO) CAPS, one [...] ASSESSMENT: 1. Non-critical Coronary artery disease involving pilot point coronary artery of pilot point heart [facility] angina pectoris: A. Normal exercise sestamibi [...] pain. He is in class I-II of [employer] [facility] [employer] n functional class. There are [...] ventricular arrhythmia performed by Dr. Gambino at [facility] on 01/30/2013. Patient had spontaneous PVCs [...] to go back in 3 days to [place] for an attempt of ablation under general [...] this chart may have been created with [employer] voice recognition software. Occasi onal wrong-word [...] | | | | | | [place] [address] | | | | | | [phone] | | | | | | | [...] | | | | | | [place] [address] | | | | | | [phone] | | | | | | | | +--------+ + + + + | 05/21/ | Implant | Cardiology | SunshinecherelleSydni, | Remote Device | | 2019 | Monitor | | [facility] | Interrogation | | | | | [place], | (Primary Dx); | | | | | [place] [address] | Pacemaker; | | | | | [phone] | Sinoatrial node | | | | [...] the | | | | PDT | pilot point coronary | results section. | | | | | artery of pilot point | | | | | | heart [...] MD | | | | | | ([id number]) on 06/23/2016 | | | | | [...] + | Coronary artery disease involving pilot point coronary artery of pilot point heart without | | angina pectoris | [...]
--- OUTSIDE RECORDS SUMMARY | ~2020-04-15 | XMS | Encounter Summary ---
Demographics + + + | Address | [address] | | | [place] [address] | + + + | Home Phone [...] Providers + +------+ + | Care Tower Helper Name | Role | Phone | + +------+ + | Kirk French MD | PCP | | + +------+ + Encounter Details +--------+ + + + + | Date | Type | Department | Care Team | Description | +--------+ + + + + | 12/24/ | Anesthesia | [facility] | Jarett Barakat | | | 2018 | Event | MED CTR MP INTRA OP | P, MD [address] | | | | | [address] | [place], [place] | | | | | [place], [place] | [address] | | | | | [address] | [phone] | | | | | [phone] | | | | | | | Arthur Wesley, | | | | | | [address] | | | | | | [place], [place] | | | | | | [address] | | | | | | | [...] 12/24/17 1435 by | | eral | cynd-ecf-ofkdyk catheter system; | Desmond Teresa RN | [...] | | | | | | [place] [address] | | | | | | [phone] | | | | | | | | +--------+ + + + + | 05/01/ | Procedure | Cardiology | | | | 2019 | visit | | | | +--------+ + + + + | 05/01/ | Office | Cardiology | [place] | | | 2019 | Visit | | Janeen, VESSEL SCRAPPER HELPER [address] | | | | | | [place], | | | | | | [place] [address] | | | | | | [phone] | | | | | | | | +--------+ + + + + | 05/21/ | Implant | Cardiology | Daljit Singletary, | Remote Device | | 2020 | Monitor | | [address] | Interrogation | | | | | [place], | (Primary Dx); | | | | | [place] [address] | Pacemaker; | | | | | [phone] | Sinoatrial node | | | | [...]
--- OUTSIDE RECORDS SUMMARY | ~2020-04-15 | XMS | Encounter Summary ---
Demographics + + + | Address | [address] | | | [place] [address] | + + + | Home Phone [...] Team Providers + +------+ + | Care Sanforizer Name | Role | Phone | + [...] | | [address] | [place] [address] | | | | | [place] | [phone] | | | | | [address] | | | | | | [phone] | | | +--------+ + + + [...] W | | | | | | [place], | | | | | | [place] [address] | | | | | | [phone] | | | | | | | | +--------+ + + + + | 05/01/ | Procedure | Cardiology | | | | 2019 | visit | | | | +--------+ + + + + | 05/01/ | Office | Cardiology | [place], | | | 2019 | Visit | | PARISA Vernon [address] | | | | | | [place], | | | | | | [place] [address] | | | | | | [phone] | | | | | | | | +--------+ + + + + | 05/21/ | Implant | Cardiology | Daljit Singletary, | Remote Device | 2019 | Monitor | | MD [address] [place] | Interrogation | | | | | [place], | (Primary Dx); | | | | | [place] [address] | Pacemaker; | | | | | [phone] | Sinoatrial node | | | | | | dysfunction (HCC) | | | | | | with symptomatic | | | | | | bradycardia | +--------+ + + + + documented as of this encounter Visit Diagnoses Not on filedocumented in this encounter"
--- OUTSIDE RECORDS SUMMARY | ~2020-04-15 | XMS | Encounter Summary ---
Demographics + + + | Address | [address] | | | [place] [address] | + + + | Home Phone [...] Providers + +------+ + | Care Project Coordinator Rn Name | Role | Phone | [...] Medication Refill | | 2019 | | [facility] | MD Brea [address] | | | | | PRIMARY [facility] [address] | | | | | [address] | [place] [address] | | | | | [place], [place] | [phone] | | | | | [address] | | | | | | [phone] | | | +--------+--------+ + + + [...] | | | | | | [place] [address] | | | | | | [phone] | | | | | | | [...] | | | | | | [place] [address] | | | | | | [phone] | | | | | | | | +--------+ + + + + | 05/21/ | Implant | Cardiology | Daljit Singletary, | Remote Device | | 2019 | Monitor | | [address] [facility] | Interrogation | | | | | [place], | (Primary Dx); | | | | | [place] [address] | Pacemaker; | | | | | [phone] | Sinoatrial node | | | | | | dysfunction (HCC) | | | | | | with symptomatic | | | | | | bradycardia | +--------+ + + + + documented as of this encounter Visit Diagnoses Not on filedocumented in this encounter"
--- OUTSIDE RECORDS SUMMARY | ~2020-04-15 | XMS | Encounter Summary ---
Demographics + + + | Address | [address] | | | [place] [address] | + + + | Home Phone [...] Providers + +------+ + | Care Aircraft Maintenance Engineer Name | Role | Phone | + +------+ + PCP | Unavailable | + +------+ + Encounter Details +--------+ + + + + | Date | Type | Department | Care Team | Description | +--------+ + + + + | 02/01/ | [facility] | [facility] | Evan Gandara MD | | | 2008 - | Encounter | MED CTR MED ONC | [address] [facility] | | | | | [address] [place] | [place] | | | 02/06/ | | [place] [address] | [address] | | | 2008 | | [phone] | | | +--------+ + + + [...] | | | | | | [place] [address] | | | | | | [phone] | | | | | | | [...] | | | | | | [place] [address] | | | | | | [phone] | | | | | | | | +--------+ + + + + | 05/21/ | Implant | Cardiology | Daljit Singletary, | Remote Device | 2019 | Monitor | | MD [address] [place] | Interrogation | | | | | [place], | (Primary Dx); | | | | | [place] [address] | Pacemaker; | | | | | [phone] | Sinoatrial node | | | | | | dysfunction (HCC) | | | | | | with symptomatic | | | | | | bradycardia | +--------+ + + + + documented as of this encounter Visit Diagnoses Not on filedocumented in this encounter"
--- OUTSIDE RECORDS SUMMARY | ~2020-04-15 | XMS | Encounter Summary ---
Demographics + + + | Address | [address] | | | [place] [address] | + + + | Home Phone [...] Provider Unknown | | | | | [place], [place] | [phone] | | | | | [address] | | | | | | [phone] | | | +--------+ + + + [...] + + + +---------+ + + | [place]-3 Fatty | CAPS, one capsule by [...] | | | | | | | #[id number], exp 07/2016 | | | | | [...] | | | | | | [place] [address] | | | | | | [phone] | | | | | | | | +--------+ + + + + | 05/01/ | Procedure | Cardiology | | | | 2019 | visit | | | | +--------+ + + + + | 05/01/ | Office | Cardiology | Silvia, | | | 2019 | Visit | | PARISA Vernon [address] | | | | | | [place], | | | | | | [place] [address] | | | | | | [phone] | | | | | | | | +--------+ + + + + | 05/21/ | Implant | Cardiology | Daljit Singletary, | Remote Device | | 2020 | Monitor | | [address] | Interrogation | | | | | [place], | (Primary Dx); | | | | | [place] [address] | Pacemaker; | | | | | [phone] | Sinoatrial node | | | | [...]
--- OUTSIDE RECORDS SUMMARY | ~2020-04-15 | XMS | Encounter Summary ---
Demographics + + + | Address | [address] | | | [place] [address] | + + + | Home Phone [...] Team Providers + +------+ + | Care Flake Or Shred Roll Operator Name | Role | Phone [...] 2019 | | GASTROENTEROLOGY | [address], [place] | | | | | [address] [place] | [address] [place], [place] | | | | | [address] [place], [place] | [address] | | | | | [address] | | | | | | [phone] | | | +--------+ + + + [...] | | | | | | [place] [address] | | | | | | [phone] | | | | | | | | +--------+ + + + + | 05/01/ | Procedure | Cardiology | | | | 2019 | visit | | | | +--------+ + + + + | 05/01/ | Office | Cardiology | Silvia, | | | 2019 | Visit | | PARISA Vernon [address] | | | | | | [place], | | | | | | [place] [address] | | | | | | [phone] | | | | | | | | +--------+ + + + + | 05/21/ | Implant | Cardiology | Daljit Singletary, | Remote Device | | 2019 | Monitor | | [address] [place] | Interrogation | | | | | [place], | (Primary Dx); | | | | | [place] [address] | Pacemaker; | | | | | [phone] | Sinoatrial node | | | | | | dysfunction ([facility]) | | | | | | with symptomatic | | | | | | bradycardia | +--------+ + + + + documented as of this encounter Visit Diagnoses Not on filedocumented in this encounter"
--- OUTSIDE RECORDS SUMMARY | ~2020-04-15 | XMS | Encounter Summary ---
Demographics + + + | Address | [address] | | | [place] [address] | + + + | Home Phone [...] Team Providers + +------+ + | Care Mass Spectroscopist Name | Role | Phone | + +------+ + PCP | Unavailable | + +------+ + Encounter Details +--------+ + + + + | Date | Type | Department | Care Team | Description | +--------+ + + + + | 10/26/ | Hospital | [facility] | | | | 1994 | Encounter | MED CTR EMERGENCY | | | | | | CENTER [address] | | | | | | [place] | | | | | | [address] | | | | | | [phone] | | | +--------+ + + + [...] | | | | | | [place] [address] | | | | | | [phone] | | | | | | | [...] | | | | | | [place] [address] | | | | | | [phone] | | | | | | | | +--------+ + + + + | 05/21/ | Implant | Cardiology | Daljit Singletayr, | Remote Device | 2019 | Monitor | | [address] [place] | Interrogation | | | | | [place], | (Primary Dx); | | | | | [place] [address] | Pacemaker; | | | | | [phone] | Sinoatrial node | | | | | | dysfunction (HCC) | | | | | | with symptomatic | | | | | | bradycardia | +--------+ + + + + documented as of this encounter Visit Diagnoses Not on filedocumented in this encounter"
--- OUTSIDE RECORDS SUMMARY | ~2020-04-15 | XMS | Encounter Summary ---
Demographics + + + | Address | [address] | | | [place] [address] | + + + | Home Phone [...] Team Providers + +------+ + | Care Composite Bond Technician Name | Role | Phone | [...] | | | | exertion | | [place] | | | | | Chest pain | | [place], [place] | | | | | on exertion | | [address] | | | | | | | Phone: | | | | | | | [phone] | | | | | | | Fax: | | | | | | | [phone] | +--------+--------+ + + + + Encounter Details +--------+ + + + + | Date | Type | Department | Care Team | Description | +--------+ + + + + | 04/27/ | [facility] Martell Hart | Chest pain on | | 2014 - | | [facility] CTR MEDICAL | Sanjay Palacios MD | exertion (Primary | | | | [address] [place] | [address] | Dx); Dyspnea on | | 03/20/ | | [place] [address] | [place], [place] | exertion; Essential | | 2014 | | [phone] | [address] | hypertension; Acute | | | | | | chest pain; | | | | | Parth Kraft, | Dizziness, | | | | | [address] | nonspecific; Mixed | | | | | [place], [place] | anxiety depressive | | | | | [address] | disorder; PUD | | | | | [phone] | (peptic ulcer | | | | [...] be different f rom the original. [facility] DISCHARGE SUMMARY Pt. Name/Age/: Moe [...] 911 aka: NITROSTAT ONE TOUCH DELICA LANCETS [facility] Check glucose as needed for hypoglycemia OSTEO [...] Daily. to reduce urinary frequency - Lot #[id number], exp 07/2016 aka: RAPAFLO UNCODED MEDICATION - [...] hospital follow up Contact information: [address] [address] Call PARISA Russell. Specialty: Nurse Practitioner Why: As needed Contact information: [address] [place] [address] Condition: Patient being discharged with condition improved. Diet: Heart healthy, avoid acidic drinks and foods, spicy foods, too much coffee. Greater than 30 minutes were spent on discharge and coordination of post-hospital care. Electronically signed by: Thierry Fregoso DO, 03/20/2015 11:22 [facility] Portions of this chart may have been created with [employer] voice recognition software. Occasi onal wrong-word or [...] afford the prescribed medication, you can try maml-odz-gmnwadn acid blockers, such as Pepcid AC, Tagamet, [...] or as directed by your healthcare provider [address] [employer]. [address] [place] [address]. All righ ts reserved. This information is [...] + + +---------+ + + | [place]-3 Fatty | CAPS, one capsule by | [...] | | | | | | | #[id number], exp 07/2016 | | | | | [...] - 03/19/2015 10:09 PM PDT . [facility] PROGRESS NOTE Patient: Moe Sanchez : 1960: Age: 55 y.o. MedRec: [id number] PCP: Kirk French Admission date: 03/18/2015 Hospital [...] 1708 03/18/15 1528 TROPONINI <0.01 <0.01 0.01 [facility] ECHOCARDIOGRAM REPORT STUDY DATE: 03/19/2015 [...] changes. No results for input(s): PHART, PO2ART, CHG5MST, IRY4YEE, BEART, U9EVIOLR in the last 168 h ours. No results for input(s): SPECSOURCE, PHPOCB, HCO3, TCO2, BEART, BE, ZBDV3TVW in the last 16 8 hours. Invalid input(s): PKEWX5QW, ZIKV0YN Point of care glucose: No results for [...] minutes today. Thierry Fregoso DO 03/19/2015 22:09 [facility] Portions of this chart may have been created with [employer] voice recognition software. Occasi onal wrong-word or sound-alike substitutions may have occurred due to the inherent granger itations of voice recognition software. Please read the chart carefully and recognize, using context, where these substitutions have occurred Belén Cho RN - 03/19/2015 11:03 AM [id number] Report given to Marlen morejon who is [...] W | | | | | | [place], | | | | | | [place] [address] | | | | | | [phone] | | | | | | | | +--------+ + + + + | 05/01/ | Procedure | Cardiology | | | | 2019 | visit | | | | +--------+ + + + + | 05/01/ | Office | Cardiology | Silvia, | | | 2019 | Visit | | PARISA Vernon [address] | | | | | | [place], | | | | | | [place] [address] | | | | | | [phone] | | | | | | | | +--------+ + + + + | 05/21/ | Implant | Cardiology | Daljit Singletary, | Remote Device | | 2020 | Monitor | | MD [address] [facility] | Interrogation | | | | | [place], | (Primary Dx); | | | | | [place] [address] | Pacemaker; | | | | | [phone] | Sinoatrial node | | | | [...] Performed At | + + + | [facility] ECHOCARDIOGRAM REPORT | | | [...] | Signed by: Daljit Singletary MD [facility] 03/19/2015 15:44 | | | Printing Estimator: Dewey Valdez RDMS | | + + [...] [address] | [place] | [phone] | | [facility] | | [address] | | | - LABORATORY | | [...] | | MEDICAL | | | | mL/min/1.33z4Btnq than | | CENTER - | | [...] + | [facility] | [address] | [place], [place] | [phone] | | [facility] | | [address] | | | - LABORATORY | | [...] [address] | [place] | [phone] | | [facility] | | [address] | | | - LABORATORY | | [...] + + | Performing | Address | City/State/[place] | Phone Number | | Organization | | | | + + + + + | [facility] | [address] | [place] | [phone] | | [facility] | | [address] | | | - LABORATORY | | [...] | [address] | [place] | [phone] | | [facility] | | [address] | | | - LABORATORY | | [...] + | [facility] | [address] | [place] | [phone] | | [facility] | | [address] | | | - LABORATORY | | [...] [address] | [place] | [phone] | | [facility] | | [address] | | | - LABORATORY | | [...] ST. | [address] | [place], [place] | [phone] | | [facility] | | [address] | | | - LABORATORY | | [...] [address] | [place] | [phone] | | [facility] | | [address] | | | - LABORATORY | | [...] + | [facility] | [address] | [place], [place] | [phone] | | [facility] | | [address] | | | - LABORATORY | | [...] | | MEDICAL | | | | mL/min/1.80j4Kctk than | | CENTER - | | [...] + | [facility] | [address] | [place] | [phone] | | [facility] | | [address] | | | - LABORATORY | | [...] [address] | [place] | [phone] | | [facility] | | [address] | | | - LABORATORY | | [...]
--- OUTSIDE RECORDS SUMMARY | ~2020-04-15 | XMS | Encounter Summary ---
Demographics + + + | Address | [address] | | | [place] [address] | + + + | Home Phone [...] + +------+ + | Care Customer Service Supervisor Name | Role | Phone [...] 2019 | | GASTROENTEROLOGY | MD [address] | | | | | [address] | [place]. [place] | | | | | [address] [place] | [place] [address] | | | | | [address] | | | | | | [phone] | | | +--------+ + + + [...] | | | | | | [place] [address] | | | | | | [phone] | | | | | | | [...] | | | | | | [place] [address] | | | | | | [phone] | | | | | | | | +--------+ + + + + | 05/21/ | Implant | Cardiology | Daljit Singletary, | Remote Device | | 2019 | Monitor | | MD [address] [place] [place] | Interrogation | | | | | [place], | (Primary Dx); | | | | | [place] [address] | Pacemaker; | | | | | [phone] | Sinoatrial node | | | | [...] | | | | | [facility] | | | | + [...]
--- OUTSIDE RECORDS SUMMARY | ~2020-04-15 | XMS | Encounter Summary ---
Demographics + + + | Address | [address] | | | [place] [address] | + + + | Home Phone [...] Providers + +------+ + | Care Commutator Presser Name | Role | Phone | [...] + | 12/23/ | Telephone | [facility] | [place], | Lab Order (due for | | 2017 | | CARDIOLOGY [address] | Janeen, APPLICATION TESTER [address] | fasting labs) | | | | [place], | [place], | | | | | [place] [address] | [place] [address] | | | | | [phone] | [phone] | | | | | | | [...] | | | | | | [place] [address] | | | | | | [phone] | | | | | | | | +--------+ + + + + | 05/01/ | Procedure | Cardiology | | | | 2019 | visit | | | | +--------+ + + + + | 05/01/ | Office | Cardiology | [place], | | | 2019 | Visit | | PARISA Vernon [address] | | | | | | [place], | | | | | | [place] [address] | | | | | | [phone] | | | | | | | | +--------+ + + + + | 05/21/ | Implant | Cardiology | Daljit Singletary, | Remote Device | | 2019 | Monitor | | [address] [facility] | Interrogation | | | | | [address] [place], | (Primary Dx); | | | | | [place] [address] | Pacemaker; | | | | | [phone] | Sinoatrial node | | | | | | dysfunction (HCC) | | | | | | with symptomatic | | | | | | bradycardia | +--------+ + + + + documented as of this encounter Visit Diagnoses Not on filedocumented in this encounter"
--- OUTSIDE RECORDS SUMMARY | ~2020-04-15 | XMS | Encounter Summary ---
Demographics + + + | Address | [address] | | | [place] [address] | + + + | Home Phone [...] Team Providers + +------+ + | Care Cray Fishing Hand Name | Role | Phone | [...] 2016 | | CARDIOLOGY [address] | READY TO WEAR DEPARTMENT MANAGER [address] [place] | | | | | [place], | [place], [place] | | | | | [place] [address] | [address] | | | | | [phone] | | | +--------+--------+ + + + [...] W | | | | | | [place], | | | | | | [place] [address] | | | | | | [phone] | | | | | | | | +--------+ + + + + | 05/01/ | Procedure | Cardiology | | | | 2019 | visit | | | | +--------+ + + + + | 05/01/ | Office | Cardiology | [place]via, | | | 2019 | Visit | | PARISA Vernon [address] | | | | | | [place], | | | | | | [place] [address] | | | | | | [phone] | | | | | | | | +--------+ + + + + | 05/21/ | Implant | Cardiology | Daljit Singletary, | Remote Device | | 2019 | Monitor | | [address] [facility] | Interrogation | | | | | [place], | (Primary Dx); | | | | | [place] [address] | Pacemaker; | | | | | [phone] | Sinoatrial node | | | | | | dysfunction (HCC) | | | | | | with symptomatic | | | | | | bradycardia | +--------+ + + + + documented as of this encounter Visit Diagnoses Not on filedocumented in this encounter"
--- OUTSIDE RECORDS SUMMARY | ~2020-04-15 | XMS | Encounter Summary ---
Demographics + + + | Address | [address] | | | [place] [address] | + + + | Home Phone [...] Providers + +------+ + | Care Brand Leader Name | Role | Phone | [...] Results | | 2013 | | [facility] [place] | DO [address] | | | | | [address] | [place] | | | | | [place] | [address] | | | | | [address] | | | | | | [phone] | | | +--------+ + + + [...] W | | | | | | [place], | | | | | | [place] [address] | | | | | | [phone] | | | | | | | | +--------+ + + + + | 05/01/ | Procedure | Cardiology | | | | 2019 | visit | | | | +--------+ + + + + | 05/01/ | Office | Cardiology | Silvia, | | | 2019 | Visit | | PARISA Vernon W | | | | | | [place], | | | | | | [place] [address] | | | | | | [phone] | | | | | | | | +--------+ + + + + | 05/21/ | Implant | Cardiology | Daljit Singletary, | Remote Device | 2019 | Monitor | | MD Chiquis [address] | Interrogation | | | | | [place], | (Primary Dx); | | | | | [place] [address] | Pacemaker; | | | | | [phone] | Sinoatrial node | | | | | | dysfunction (HCC) | | | | | | with symptomatic | | | | | | bradycardia | +--------+ + + + + documented as of this encounter Visit Diagnoses Not on filedocumented in this encounter"
--- OUTSIDE RECORDS SUMMARY | ~2020-04-15 | XMS | Encounter Summary ---
Demographics + + + | Address | [address] | | | [place] [address] | + + + | Home Phone [...] Providers + +------+ + | Care Manager Treasury Name | Role | Phone | + [...] | CARDIOLOGY [address] | [address] [place] | Interrogation | | | | [place], | [place], | (Primary Dx); | | | | [place] [address] | [place] [address] | Presence of | | | | [phone] | [phone] | permanent cardiac | | | | [...] | | | | | | [place] [address] | | | | | | [phone] | | | | | | | | +--------+ + + + + | 05/01/ | Procedure | Cardiology | | | | 2019 | visit | | | | +--------+ + + + + | 05/01/ | Office | Cardiology | Silvia, | | | 2019 | Visit | | PARISA Vernon [address] | | | | | | [place], | | | | | | [place] [address] | | | | | | [phone] | | | | | | | | +--------+ + + + + | 05/21/ | Implant | Cardiology | Daljit Singletary, | Remote Device | | 2019 | Monitor | | [place] [address] [place] | Interrogation | | | | | [place], | (Primary Dx); | | | | | [place] [address] | Pacemaker; | | | | | [phone] | Sinoatrial node | | | | [...] remote PDF scanned into | | | [facility] for remote interrogation results. Data collected [...]
--- OUTSIDE RECORDS SUMMARY | ~2020-04-15 | XMS | Encounter Summary ---
Demographics + + + | Address | [address] | | | [place] [address] | + + + | Home Phone [...] + +------+ + | Care Power Plant Superintendent Name | Role | Phone | [...] Telephone | [facility] | Silvia, | Lab Order (due for | | 2017 | | CARDIOLOGY [address] | Janeen, PANEL LAY UP WORKER [address] | fasting labs) | | | | [place], | [place], | | | | | [place] [address] | [place] [address] | | | | | [phone] | [phone] | | | | | | | [...] | | | | | | [place] [address] | | | | | | [phone] | | | | | | | | +--------+ + + + + | 05/01/ | Procedure | Cardiology | | | | 2019 | visit | | | | +--------+ + + + + | 05/01/ | Office | Cardiology | Silvia, | | | 2019 | Visit | | PARISA Vernon [address] | | | | | | [place], | | | | | | [place] [address] | | | | | | [phone] | | | | | | | | +--------+ + + + + | 05/21/ | Implant | Cardiology | Daljit Singletary, | Remote Device | | 2019 | Monitor | | [address] [facility] | Interrogation | | | | | [place], | (Primary Dx); | | | | | [place] [address] | Pacemaker; | | | | | [phone] | Sinoatrial node | | | | | | dysfunction (HCC) | | | | | | with symptomatic | | | | | | bradycardia | +--------+ + + + + documented as of this encounter Visit Diagnoses Not on filedocumented in this encounter"
--- OUTSIDE RECORDS SUMMARY | ~2020-04-15 | XMS | Encounter Summary ---
Demographics + + + | Address | [address] | | | [place] [address] | + + + | Home Phone [...] Providers + +------+ + | Care Water Plumber Name | Role | Phone | [...] + + | 09/05/ | Office | [facility] | Geri Angel, | SINUS BRADYCARDIA | | 2012 | Visit | CARDIOLOGY [address] | ENTREPRENEURIAL FINANCE PROFESSOR [address] | (Primary Dx); | | | | [place], | [place], [place] | Symptomatic PVCs; | | | | [place] [address] | [address] | Hypertension; | | | | [phone] | | Hyperlipidemia | +--------+---------+ + + [...] this encounter Patient Instructions Patient Instructions Geri nAgel ARNP - 09/05/2013 3:13 PM PDT1. Start [...] and/or ref er you to electrophysiology in [place]. 3. Return in 3 months, or sooner [...] he did not followup with electrophysiology in [place], so he has remained on diltiaze m [...] 01/2011 Pacemaker placement 06/14/09 Neck fusion 08/10/2012 [place] Ablation 04/03/13 Shoulder surgery 03/22/13 Family History Problem Relation Age of Onset Cancer Father colon,prostate Family Status Relation Status Age Mother 62 [place] Father Alive Unknown health Brother Alive Sister [...] by mouth Ken y. 30 tablet 6 [place]-3 Fatty Acids (SALMON OIL-1000 PO) Active CAPS, [...] Sanchez Date: September 05, 2013 : 1960 Stand Up Forklift Operator: PARISA Velazquez Device Tree Sapper: Fitzeal Sense (mV) Impedance (?) Capture (V) Capture (ms) A Lead 4-5.6 417 1.5 0.12 RV Lead >31.36 533 2.0 0.09 LV Lead Battery Impedance (?): 452 Battery Voltage (V): 2.79 CT Interval (ms): 162 AR Interval (ms): 245 VA Conduction: Mode Switch Events: 1 % of time: <0.1 -TRAFFIC CONTROLLER CABLE: <0.1% AP-TRAFFIC CONTROLLER CABLE: 0.1% -VS: 22.7% AP-VS: 77.1% TRAFFIC CONTROLLER CABLE: Magnetic Rate: 85 LINDA: 65 LEAH: Current [...] He is upgraded to class I of [place] [employer] functional class. There are no [...] he would like to see electrophysiology in [place] rather than [place] as he paulino s family there, if [...] made to ensure accuracy; however, inadvertent computerized yarn rewinder errors may be pre sent. Electronically signed [...] | | | | | | [place] [address] | | | | | | [phone] | | | | | | | [...] | | | | | | [place] [address] | | | | | | [phone] | | | | | | | | +--------+ + + + + | 05/21/ | Implant | Cardiology | Daljit Singletary, | Remote Device | | 2019 | Monitor | | [address] [place] | Interrogation | | | | | [place], | (Primary Dx); | | | | | [place] [address] | Pacemaker; | | | | | [phone] | Sinoatrial node | | | | [...]
--- OUTSIDE RECORDS SUMMARY | ~2020-04-15 | XMS | Encounter Summary ---
Demographics + + + | Address | [address] [place] [address] [address] | | | [place] [address] | + + + | Home Phone [...] [place] | | | | | [address] | | + + + + + Care Team Providers + +------+ + | Care Garment Looper Name | Role | Phone | + [...] as of this encounter Progress Notes Interface, Cell Phone Repair Technician In - 07/19/2006 3:05 AM PDTCLINIC DATE: 06/13/2002 ORTHOPEDIC CLINIC REFERRING PHYSICIAN: Eugene Vera D.O. [address] [place] [address] Mr. Sanchez is a new patient. He [...] proceed. Martell Allen M.D. ELIZABETH / KATTY [id number] / [id number] / [id number] / [id number] cc: Eugene Vera D.O. [address] [place] [id number] signed by Interface, Cell Phone Repair Technician In at 07/19/2006 3:0 5 AM PDTdocumented in this encounter Plan of Treatment Not on filedocumented as of this encounter Visit Diagnoses Not on filedocumented in this encounter
--- OUTSIDE RECORDS SUMMARY | ~2020-04-15 | XMS | Encounter Summary ---
Demographics + + + | Address | [address] | | | [place] [address] | + + + | Home Phone [...] 2019 | | CARDIOLOGY [address] | Reference And Instruction Librarian | | | | | [place], | | | | | | [place] [address] | | | | | | [phone] | | | +--------+ + + + [...] | | | | | | [place] [address] | | | | | | [phone] | | | | | | | [...] | | | | | | [place] [address] | | | | | | [phone] | | | | | | | | +--------+ + + + + | 05/21/ | Implant | Cardiology | Daljit Singletary, | Remote Device | | 2019 | Monitor | | MD [facility] | Interrogation | | | | | [place], | (Primary Dx); | | | | | [place] [address] | Pacemaker; | | | | | [phone] | Sinoatrial node | | | | [...] | | | | | | | Greenlandic, | | | | | | External [...]
--- OUTSIDE RECORDS SUMMARY | ~2020-04-15 | XMS | Encounter Summary ---
Demographics + + + | Address | [address] | | | [place] [address] | + + + | Home Phone [...] Providers + +------+ + | Care Lithographic Stripper Name | Role | Phone | [...] [address] | | | | | [place], | [place], | | | | | [place] [address] | [place] [address] | | | | | [phone] | [phone] | | | | | | | [...] W | | | | | | [place], | | | | | | [place] [address] | | | | | | [phone] | | | | | | | | +--------+ + + + + | 05/01/ | Procedure | Cardiology | | | | 2019 | visit | | | | +--------+ + + + + | 05/01/ | Office | Cardiology | Silvia, | | | 2019 | Visit | | PARISA Vernon W | | | | | | [place], | | | | | | [place] [address] | | | | | | [phone] | | | | | | | | +--------+ + + + + | 05/21/ | Implant | Cardiology | Daljit Singletary, | Remote Device | 2019 | Monitor | | MD [place] | Interrogation | | | | | [place], | (Primary Dx); | | | | | [place] [address] | Pacemaker; | | | | | [phone] | Sinoatrial node | | | | [...] Comment | + + | [facility] | + + + +---------+ + + [...] Comment | + + | [facility] | + + + +---------+ + + [...] Comment | + + | [facility] | + + + +---------+ + + [...]
--- OUTSIDE RECORDS SUMMARY | ~2020-04-15 | XMS | Encounter Summary ---
Demographics + + + | Address | [address] | | | [place] [address] | + + + | Home Phone [...] Providers + +------+ + | Care Technology Methodology Consultant Name | Role | Phone | [...] 2019 | | GASTROENTEROLOGY | [address], [place] | | | | | [address] [place] | [address] [place], [place] | | | | | [address] [place], [place] | [address] | | | | | [address] | | | | | | [phone] | | | +--------+ + + + [...] | | | | | | [place] [address] | | | | | | [phone] | | | | | | | [...] | | | | | | [place] [address] | | | | | | [phone] | | | | | | | | +--------+ + + + + | 05/21/ | Implant | Cardiology | Daljit Singletary, | Remote Device | 2019 | Monitor | | [address] | Interrogation | | | | | [place], | (Primary Dx); | | | | | [place] [address] | Pacemaker; | | | | | [phone] | Sinoatrial node | | | | | | dysfunction (HCC) | | | | | | with symptomatic | | | | | | bradycardia | +--------+ + + + + documented as of this encounter Visit Diagnoses Not on filedocumented in this encounter"
--- OUTSIDE RECORDS SUMMARY | ~2020-04-15 | XMS | Encounter Summary ---
Demographics + + + | Address | [address] | | | [place] [address] | + + + | Home Phone [...] Providers + +------+ + | Care Consulting Networking Engineer Name | Role | Phone | [...] | | | | CENTER [address] | [address] | | | | | [place] | [place] | | | | | [address] | [address] | | | | | [phone] | | | +--------+ + + + [...] + + + +---------+ + + | Noble-3 Fatty | CAPS, one capsule by | [...] W | | | | | | [place], | | | | | | [place] [address] | | | | | | [phone] | | | | | | | | +--------+ + + + + | 05/01/ | Procedure | Cardiology | | | | 2019 | visit | | | | +--------+ + + + + | 05/01/ | Office | Cardiology | Silvia, | | | 2019 | Visit | | [address] | | | | | | [place], | | | | | | [place] [address] | | | | | | [phone] | | | | | | | | +--------+ + + + + | 05/21/ | Implant | Cardiology | Daljit Singletary, | Remote Device | 2019 | Monitor | | MD [address] [place] | Interrogation | | | | | [place], | (Primary Dx); | | | | | [place] [address] | Pacemaker; | | | | | [phone] | Sinoatrial node | | | | [...] | | | | | | [employer] | | | | [...] [address] | [place] | [phone] | | [facility] | | [address] | | | - LABORATORY | | [...] + | [address] | [address] | [place] | [phone] | | [facility] | | [address] | | | - LABORATORY | | [...] [facility] | | | | 2019. Check [...] [address] | [place] | [phone] | | [facility] | | [address] | | | - LABORATORY | | [...] | 0.92 | 0.70 - 1.30 | [facility] | | | | | mg/dL | [facility] | | | | | | MEDICAL | | | | | | CENTER - | | | | | | LABORATORY | | + + + + + + | eGFR if not | >60Comment: GLOMERULAR | >=60 | [facility] | | | | FILTRATION | mL/min/1.73m2 | [facility] | | | [place] | RATE,ESTIMATED | | MEDICAL | | | | mL/min/1.44e5Adkq than | | CENTER - | | [...] ST. | [address] | [place], [place] | [phone] | | [facility] | | [address] | | | - LABORATORY | | [...] [address] | [place] | [phone] | | [facility] | | [address] | | | - LABORATORY | | [...] | [address] | [place] | [phone] | | [facility] | | [address] | | | - LABORATORY | | [...] | | | | ANGELA MARADIAGA MD ([id number]) | | | | | | on [...] | | | | | Patient Address: [address] [place] [address] | | | | | | | [place] [address], | | | | | | + + + +------+---+---+ +---+---+ | | | +---+---+ documented in this encounter
--- OUTSIDE RECORDS SUMMARY | ~2020-04-15 | XMS | Encounter Summary ---
Demographics + + + | Address | [address] | | | [place] [address] | + + + | Home Phone [...] Team Providers + +------+ + | Care Mailing Section Clerk Name | Role | Phone | [...] | disease involving | | | | [place], | [place], | [place] coronary | | | | [place] [address] | [place] [address] | artery of [place] | | | | [phone] | [phone] | heart without angina | | | [...] W | | | | | | [place], | | | | | | [place] [address] | | | | | | [phone] | | | | | | | | +--------+ + + + + | 05/01/ | Procedure | Cardiology | | | | 2019 | visit | | | | +--------+ + + + + | 05/01/ | Office | Cardiology | Silvia, | | | 2019 | Visit | | PARISA [place] [address] | | | | | | [place], | | | | | | [place] [address] | | | | | | [phone] | | | | | | | | +--------+ + + + + | 05/21/ | Implant | Cardiology | AnshujohnsoncherelleShaistapawanotto, | Remote Device | | 2019 | Monitor | | MD [facility] | Interrogation | | | | | [place], | (Primary Dx); | | | | | [place] [address] | Pacemaker; | | | | | [phone] | Sinoatrial node | | | | [...] MD | | | | | | ([id number]) on 06/23/2016 | | | | | [...] + + | Coronary artery disease involving [place] coronary artery of [place] heart without | | angina pectoris - Primary | + + | Essential hypertension with goal blood pressure less than 130/80 | + + documented in this encounter"
--- OUTSIDE RECORDS SUMMARY | ~2020-04-15 | XMS | Encounter Summary ---
Demographics + + + | Address | [address] | | | [place] [address] | + + + | Home Phone [...] Providers + +------+ + | Care Mail Handler Equipment Operator Name | Role | Phone [...] | syndrome, cervical | | | | [place], [place] | | region; Cervicalgia | | | | [address] | (Fax) | | | | | [phone] | | | +--------+ + + + [...] + + + +---------+ + + | [place]-3 Fatty | CAPS, one capsule by [...] [id number] Date of Service: 05/11/141145 Status: Signed Director Data Processing: Christine Mcgraw Report called to Brittany morejon [...] W | | | | | | [place], | | | | | | [place] [address] | | | | | | [phone] | | | | | | | | +--------+ + + + + | 05/01/ | Procedure | Cardiology | | | | 2019 | visit | | | | +--------+ + + + + | 05/01/ | Office | Cardiology | Silvia, | | | 2019 | Visit | | PARISA [place] W | | | | | | [place], | | | | | | [place] [address] | | | | | | [phone] | | | | | | | | +--------+ + + + + | 05/21/ | Implant | Cardiology | Daljit Singletary, | Remote Device | 2019 | Monitor | | MD [address] [place] | Interrogation | | | | | [place], | (Primary Dx); | | | | | [place] [address] | Pacemaker; | | | | | [phone] | Sinoatrial node | | | | [...]
--- OUTSIDE RECORDS SUMMARY | ~2020-04-15 | XMS | Encounter Summary ---
Demographics + + + | Address | [address] [place] [address] [address] | | | [place] [address] | + + + | Home Phone [...] [place] | | | | | [address] | | + + + + + Care Team Providers + +------+ + | Care Physician President Name | Role | Phone | [...] | | | [address] | [place], [place] | | | | | Mailcode: Center | [address] | | | | | for Health and | [phone] | | | | | [facility], [facility] [address] | | | | | | [place], [place] | | | | | | [address] | | | | | | [phone] | | | +--------+ + + + [...]
--- OUTSIDE RECORDS SUMMARY | ~2020-04-15 | XMS | Encounter Summary ---
Demographics + + + | Address | [address] | | | [place] [address] | + + + | Home Phone [...] Providers + +------+ + | Care Steward/Stewardess Dining Room Name | Role | Phone | + +------+ + | Kirk French MD | PCP | | + +------+ + Encounter Details +--------+ + + + + | Date | Type | Department | Care Team | Description | +--------+ + + + + | 06/19/ | Orders Only | [facility] | Fabrice Hylton, | Abnormal weight | | 2019 | | SYSTEM GENERIC OP | MD [address] | loss; Anxiety | | | | CONVERSION [address] | [address] [place], [place] | disorder; Chronic | | | | [address] [place], [place] | [address] | pain syndrome; | | | | [address] | | Obesity; Neuralgia | | | | [phone] | | and neuritis, | | | [...] | | | | | | [place] [address] | | | | | | [phone] | | | | | | | | +--------+ + + + + | 05/01/ | Procedure | Cardiology | | | | 2019 | visit | | | | +--------+ + + + + | 05/01/ | Office | Cardiology | Silvia, | | | 2019 | Visit | | PARISA [place] W | | | | | | [place], | | | | | | [place] [address] | | | | | | [phone] | | | | | | | | +--------+ + + + + | 05/21/ | Implant | Cardiology | Daljit Singletary, | Remote Device | 2019 | Monitor | | [address] [place] | Interrogation | | | | | [place], | (Primary Dx); | | | | | [place] [address] | Pacemaker; | | | | | [phone] | Sinoatrial node | | | | [...]
--- OUTSIDE RECORDS SUMMARY | ~2020-04-15 | XMS | Encounter Summary ---
Demographics + + + | Address | [address] | | | [place] [address] | + + + | Home Phone [...] Providers + +------+ + | Care Highway Maintenance Worker Name | Role | Phone [...] disease involving | | | | [place], | [place], | [place] coronary | | | | [place] [address] | [place] [address] | artery of [place] | | | | [phone] | [phone] | heart without angina | | | [...] | | | | | [place], | | | | | | [place] [address] | | | | | | [phone] | | | | | | | | +--------+ + + + + | 05/01/ | Procedure | Cardiology | | | | 2019 | visit | | | | +--------+ + + + + | 05/01/ | Office | Cardiology | Silvia, | | | 2019 | Visit | | PARISA Vernon [address] | | | | | | [place], | | | | | | [place] [address] | | | | | | [phone] | | | | | | | | +--------+ + + + + | 05/21/ | Implant | Cardiology | AnshujohnsoncherelleShaistapawanotto, | Remote Device | | 2019 | Monitor | | MD [address] [facility] | Interrogation | | | | | [place], | (Primary Dx); | | | | | [place] [address] | Pacemaker; | | | | | [phone] | Sinoatrial node | | | | [...] MD | | | | | | ([id number]) on 06/23/2016 | | | | | [...] + + | Coronary artery disease involving [place] coronary artery of [place] heart without | | angina pectoris - Primary | + + | Essential hypertension with goal blood pressure less than 130/80 | + + documented in this encounter"
--- OUTSIDE RECORDS SUMMARY | ~2020-04-15 | XMS | Encounter Summary ---
Demographics + + + | Address | [address] | | | [place] [address] | + + + | Home Phone [...] Team Providers + +------+ + | Care Hemodialysis Rn Name | Role | Phone | [...] Eva ROUSE | | | | | [place], [place] | [address] | | | | | [address] | [place] [address] | | | | | [phone] | [phone] | | | | | | | [...] W | | | | | | [place], | | | | | | [place] [address] | | | | | | [phone] | | | | | | | | +--------+ + + + + | 05/01/ | Procedure | Cardiology | | | | 2019 | visit | | | | +--------+ + + + + | 05/01/ | Office | Cardiology | Silvia, | | | 2019 | Visit | | PARISA Vernon [address] | | | | | | [place], | | | | | | [place] [address] | | | | | | [phone] | | | | | | | | +--------+ + + + + | 05/21/ | Implant | Cardiology | Daljit Singletary, | Remote Device | 2019 | Monitor | | MD [address] [place] | Interrogation | | | | | [place], | (Primary Dx); | | | | | [place] [address] | Pacemaker; | | | | | [phone] | Sinoatrial node | | | | [...]
--- OUTSIDE RECORDS SUMMARY | ~2020-04-15 | XMS | Encounter Summary ---
Demographics + + + | Address | [address] | | | [place] [address] | + + + | Home Phone [...] Providers + +------+ + | Care Molding Line Operator Name | Role | Phone [...] Provider Unknown | | | | | [place], [place] | [phone] | | | | | [address] | | | | | | [phone] | | | +--------+ + + + [...] + + +---------+ + + | [place]-3 Fatty | CAPS, one capsule by | [...] W | | | | | | [place], | | | | | | [place] [address] | | | | | | [phone] | | | | | | | | +--------+ + + + + | 05/01/ | Procedure | Cardiology | | | | 2019 | visit | | | | +--------+ + + + + | 05/01/ | Office | Cardiology | Silvia, | | | 2019 | Visit | | PARISA Vernon W | | | | | | [place], | | | | | | [place] [address] | | | | | | [phone] | | | | | | | | +--------+ + + + + | 05/21/ | Implant | Cardiology | Daljit Singletary, | Remote Device | | 2019 | Monitor | | [address] [place] | Interrogation | | | | | [place], | (Primary Dx); | | | | | [place] [address] | Pacemaker; | | | | | [phone] | Sinoatrial node | | | | [...]
--- OUTSIDE RECORDS SUMMARY | ~2020-04-15 | XMS | Encounter Summary ---
Demographics + + + | Address | [address] | | | [place] [address] | + + + | Home Phone [...] Team Providers + +------+ + | Care Indirect Sales Representative Name | Role | Phone | + +------+ + | Michael Amanda DO | PCP | | + +------+ + Encounter Details +--------+ + + + + | Date | Type | Department | Care Team | Description | +--------+ + + + + | 11/03/ | Emergency | [facility] | Eliel Calzada, | Palpitations; | | 2013 - | | [facility] | MD Chiquis JOHNSON | Atypical chest pain | | | | EM[facility] CENTER | [facility] [place] | | | 11/04/ | | [address] | [phone] | | | 2013 | | [place], [place] | | | | | | [address] | | | | | | [phone] | | | +--------+ + + + [...] | | | | | | [place] [address] | | | | | | [phone] | | | | | | | [...] | | | | | | [place] [address] | | | | | | [phone] | | | | | | | | +--------+ + + + + | 05/21/ | Implant | Cardiology | Daljit Singletary, | Remote Device | | 2019 | Monitor | | [address] | Interrogation | | | | | [place], | (Primary Dx); | | | | | [place] [address] | Pacemaker; | | | | | [phone] | Sinoatrial node | | | | [...] CHEST 2 VIEW FRONTAL | | AND RWIOGQK6711/03/2014 11:56 PM History: 54 years. Male. Acute [...] EXTERNAL | | | | performed at [facility];888 | | LAB | | | | [address];[place] | | | | | | [address] | | | | + + + + + -+ | Red Blood | 4.97Comment: Testing | 4.20 - 5.70 | EXTERNAL | | | Cells | performed at [facility];888 | M/uL | LAB | | | Counted | [address];[place] | | | | | | [address] | | | | + + + + + -+ | Hemoglobin | 16.8Comment: Testing | 13.2 - 17.0 | EXTERNAL | | | | performed at [facility];888 | g/dL | LAB | | | | [address];[place] | | | | | | [address] | | | | + + + + + -+ | Hematocrit, | 48.2Comment: Testing | 39.0 - 50.0 % | EXTERNAL | | | POC | performed at [facility];[address] | | LAB | | | [address];[place] | | | | | | [address] | | | | + + + + + -+ | MCV | 97.1Comment: Testing | 80.0 - 100.0 fl | EXTERNAL | | | | performed at [facility];[address] | | LAB | | | [address];[place] | | | | | | [address] | | | | + + + + + -+ | MCH | 33.9Comment: Testing | 27.0 - 34.0 pg | EXTERNAL | | | | performed at [facility];[address] | | LAB | | | | [address];[place] | | | | | | [address] | | | | + + + + + -+ | MCHC | 34.9Comment: Testing | 32.0 - 35.5 | EXTERNAL | | | | performed at [facility];888 | g/dL | LAB | | | | [address];[place] | | | | | | [address] | | | | + + + + + -+ | RDW-CV | 42.4Comment: Testing | 37 - 53 fl | EXTERNAL | | | | performed at [facility];[address] | | LAB | | | | [address];[place] | | | | | | [address] | | | | + + + + + -+ | Platelet | 143 (L)Comment: Testing | 150 - 400 K/uL | EXTERNAL | | | Count | performed at [facility];[address] | | LAB | | | Plasma | [address];[place] | | | | | | [address] | | | | + + + + + -+ | MPV | 9.0Comment: Testing | fl | EXTERNAL | | | | performed at [facility];[address] | | LAB | | | | [address];[place] | | | | | | [address] | | | | + + + + + -+ | Differentia | AUTOMATEDComment: | | EXTERNAL | | | l Type | Testing performed at | | LAB | | | | [facility];[address];[place] [address] | | | | + + + + + -+ | % Segmented | 61.6Comment: Testing | % | EXTERNAL | | | | performed at [facility];[address] | | LAB | | | Neutrophils | [address];[place] | | | | | | [address] | | | | + + + + + -+ | % | 27.8Comment: Testing | % | EXTERNAL | | | Lymphocytes | performed at [facility];888 | | LAB | | | | [address];[place] | | | | | | [address] | | | | + + + + + -+ | % Monocytes | 8.7Comment: Testing | % | EXTERNAL | | | | performed at [facility];[address] | | LAB | | | | [address];[place] | | | | | | [address] | | | | + + + + + -+ | % | 0.8Comment: Testing | % | EXTERNAL | | | Eosinophils | performed at [facility];[address] | | LAB | | | | [address];[place] | | | | | | [address] | | | | + + + + + -+ | % Basophils | 1.1Comment: Testing | % | EXTERNAL | | | | performed at [facility];[address] | | LAB | | | | [address];[place] | | | | | | [address] | | | | + + + + + -+ | Absolute | 5.4Comment: Testing | 1.9 - 7.4 K/uL | EXTERNAL | | | Segmented | performed at [facility];888 | | LAB | | | Neutrophils | [address];[place] | | | | | | [address] | | | | + + + + + -+ | Absolute | 2.4Comment: Testing | 1.0 - 3.9 K/uL | EXTERNAL | | | Lymphocytes | performed at [facility];[address] | | LAB | | | | [address];[place] | | | | | | [address] | | | | + + + + + -+ | Absolute | 0.8Comment: Testing | 0 - 0.8 K/uL | EXTERNAL | | | Monocytes | performed at [facility];888 | | LAB | | | | [address];[place] | | | | | | [address] | | | | + + + + + -+ | Absolute | 0.1Comment: Testing | 0 - 0.5 K/uL | EXTERNAL | | | Eosinophils | performed at [facility];888 | | LAB | | | | [address];[place] | | | | | | [address] | | | | + + + + + -+ | Absolute | 0.1Comment: Testing | 0 - 0.1 K/uL | EXTERNAL | | | Basophils | performed at [facility];[address] | | LAB | | | | [address];[place] | | | | | | [address] | | | | + + + + + -+ | RBC | SLIDE SCANNED, AGREES | | EXTERNAL | | | Morphology | WITH AUTOMATED | | LAB | | | | RESULTS.Comment: Testing | | | | | | performed at [facility];[address] | | | | | | [address];[place] | | | | | | [address] | | | | + + + + + -+ | Na | 140Comment: Testing | 135 - 143 | EXTERNAL | | | | performed at [facility];888 | mmol/L | LAB | | | | [address];[place] | | | | | | [address] | | | | + + + + + -+ | K | 3.9Comment: Testing | 3.5 - 4.9 | EXTERNAL | | | | performed at [facility];888 | mmol/L | LAB | | | | [address];[place] | | | | | | [address] | | | | + + + + + -+ | Cl | 107Comment: Testing | 99 - 109 mmol/L | EXTERNAL | | | | performed at [facility];[address] | | LAB | | | | [address];[place] | | | | | | [address] | | | | + + + + + -+ | CO2 | 28Comment: Testing | 23 - 32 mmol/L | EXTERNAL | | | | performed at [facility];[address] | | LAB | | | | [address];[place] | | | | | | [address] | | | | + + + + + -+ | Anion Gap | 9Comment: Testing | 5 - 20 mmol/L | EXTERNAL | | | | performed at [facility];[address] | | LAB | | | | [address];[place] | | | | | | [address] | | | | + + + + + -+ | Glucose, | 97Comment: Testing | 65 - 99 mg/dL | EXTERNAL | | | Fasting | performed at [facility];[address] | | LAB | | | | [address];[place] | | | | | | [address] | | | | + + + + + -+ | BUN | 14Comment: Testing | 8 - 25 mg/dL | EXTERNAL | | | | performed at [facility];[address] | | LAB | | | | [address];[place] | | | | | | [address] | | | | + + + + + -+ | Creatinine | 0.98Comment: Testing | 0.70 - 1.30 | EXTERNAL | | | | performed at [facility];888 | mg/dL | LAB | | | | [address];[place] | | | | | | [address] | | | | + + + + + -+ | BUN/Creatin | 14Comment: Testing | | EXTERNAL | | | ine Ratio | performed at [facility];[address] | | LAB | | | | [address];[place] | | | | | | [address] | | | | + + + + + -+ | Calcium | 8.8Comment: Testing | 8.5 - 10.2 | EXTERNAL | | | | performed at [facility];888 | mg/dL | LAB | | | | [address];[place] | | | | | | [address] | | | | + + + + + -+ | Protein, | 6.9Comment: Testing | 6.3 - 8.2 g/dL | EXTERNAL | | | Total | performed at [facility];[address] | | LAB | | | | [address];[place] | | | | | | [address] | | | | + + + + + -+ | Albumin | 3.7Comment: Testing | 3.6 - 5.0 g/dL | EXTERNAL | | | | performed at [facility];[address] | | LAB | | | | [address];[place] | | | | | | [address] | | | | + + + + + -+ | Globulin | 3.2Comment: Testing | 1.3 - 4.9 g/dL | EXTERNAL | | | | performed at [facility];[address] | | LAB | | | | [address];[place] | | | | | | [address] | | | | + + + + + -+ | A/G Ratio | 1.2Comment: Testing | 1.0 - 2.4 | EXTERNAL | | | | performed at [facility];[address] | | LAB | | | | [address];[place] | | | | | | [address] | | | | + + + + + -+ | Bilirubin | 0.9Comment: Testing | 0.1 - 1.5 mg/dL | EXTERNAL | | | Total | performed at [facility];[address] | | LAB | | | | [address];[place] | | | | | | [address] | | | | + + + + + -+ | ALP, | 60Comment: Testing | 35 - 115 U/L | EXTERNAL | | | External | performed at [facility];[address] | | LAB | | | | [address];[place] | | | | | | [address] | | | | + + + + + -+ | AST | 22Comment: Testing | 10 - 45 U/L | EXTERNAL | | | | performed at [facility];[address] | | LAB | | | | [address];[place] | | | | | | [address] | | | | + + + + + -+ | ALT | 37Comment: Testing | 10 - 65 U/L | EXTERNAL | | | | performed at [facility];[address] | | LAB | | | | [address];[place] | | | | | | [address] | | | | + + + [...] | | | | | | at [facility];[address] | [address];[place] [address] | | | | + + + + + -+ | CK, Total | 103Comment: Testing | 55 - 400 U/L | EXTERNAL | | | | performed at [facility];[address] | | LAB | | | | [address];[place] | | | | | | [address] | | | | + + + [...] | | | | | performed at [facility];[address] | | | | | | [address];[place] | | | | | | [address] | | | | + + + + + -+ | aPTT, | 26Comment: Testing | 23 - 32 seconds | EXTERNAL | | | Patient | performed at [facility];[address] | | LAB | | | | [address];[place] | | | | | | [address] | | | | + + + + + -+ | CK-MB | 2.9Comment: Testing | 0.5 - 3.6 ng/mL | EXTERNAL | | | | performed at [facility];[address] | | LAB | | | | [address];[place] | | | | | | [address] | | | | + + + [...] EXTERNAL | | | | performed at [facility];888 | uIU/mL | LAB | | | | [address];[place], [place] | | | | | | [address] | | | | + + + [...] EXTERNAL | | | | performed at [facility];[address] | | LAB | | | | [address];[place], [place] | | | | | | [address] | | | | + + + [...] EXTERNAL | | | | performed at [facility] | | LAB | | | | [address];[place], [place] | | | | | | [address] | | | | + + + [...] | | | | | ONLY, -COMPUTER ([id number]), | | | | | | editor [...] + + | Historically converted procedure from [facility] Epic environment | EXTERNAL LAB | + [...]
--- OUTSIDE RECORDS SUMMARY | ~2020-04-15 | XMS | Encounter Summary ---
Demographics + + + | Address | [address] | | | [place] [address] | + + + | Home Phone [...] | CARDIOLOGY [address] | reprogramming/check | | | | [address], | [place], | DO NOT DELETE | | | | [place] [address] | [place] [address] | (Primary Dx); | | | | [phone] | [phone] | Sinoatrial node | | | | [...] | | | | | | [place] [address] | | | | | | [phone] | | | | | | | | +--------+ + + + + | 05/01/ | Procedure | Cardiology | | | | 2019 | visit | | | | +--------+ + + + + | 05/01/ | Office | Cardiology | Silvia | | | 2019 | Visit | | PARISA [facility] [address] | | | | | [place], | | | | | | [place] [address] | | | | | | [phone] | | | | | | | | +--------+ + + + + | 05/21/ | Implant | Cardiology | Daljit Singletary, | Remote Device | | 2019 | Monitor | | [address] | Interrogation | | | | | [place], | (Primary Dx); | | | | | [place] [address] | Pacemaker; | | | | | [phone] | Sinoatrial node | | | | [...]
--- OUTSIDE RECORDS SUMMARY | ~2020-04-15 | XMS | Encounter Summary ---
Demographics + + + | Address | [address] | | | [place] [address] | + + + | Home Phone [...] + | 02/27/ | Hospital | [facility] | Shelly Carter DO | Chest pain; | | 2013 - | Encounter | [facility] | [address] | Pacemaker; | | | | CLINICAL DECISION | [place] [address] | Mild dehydration | | 02/28/ | | [address] [facility] | [phone] | | | 2013 | | [place], [place] | | | | | | [address] | | | | | | [phone] | | | +--------+ + + + [...] 2252 Date of Service: 02/28/141044 Status: Addendum Parking Enforcement Specialist: Dev Montano MD (Physician) Related Notes: Original Note by Dev Montano MD (Physician) filed at 02/28/14 1107 Patient ID: Pina Gay [id number] y.o. 1960 Admit date: 02/27/2014 Discharge [...] - 99 mg/dL Final Testing performed at [address] [address] BUN Date Value Range Status 02/28/2014 15 8 - 25 mg/dL Final Testing performed at [address] [address] CREATININE Date Value Range Status 02/28/2014 0.74 0.70 - 1.30 mg/dL Final Testing performed at [address] [address] BUN/CREAT Date Value Range Status 02/28/2014 20 Final Testing performed at [address] [address] TOTAL PROTEIN Date Value Range Status 02/28/2014 6.1* 6.3 - 8.2 g/dL Final Testing performed at [address] [address] GLOBULIN Date Value Range Status 02/28/2014 2.1 1.3 - 4.9 g/dL Final Testing performed at [address] [address] TBIL Date Value Range Status 02/28/2014 1.4 0.1 - 1.5 mg/dL Final Testing performed at [address] [address] ALT Date Value Range Status 02/28/2014 27 10 - 65 U/L Final Testing performed at [address] [address] AST Date Value Range Status 02/28/2014 31 10 - 45 U/L Final Testing performed at [address] [address] SODIUM Date Value Range Status 02/28/2014 138 135 - 143 mmol/L Final Testing performed at [facility], [address] [place] [address] POTASSIUM Date Value Range Status 02/28/2014 3.4* 3.5 - 4.9 mmol/L Final Testing performed at [facility], [address] [place] [address] CHLORIDE Date Value Range Status 02/28/2014 108 99 - 109 mmol/L Final Testing performed at [address] [address] CO2 Date Value Range Status 02/28/2014 21* 23 - 32 mmol/L Final Testing performed at [facility], [address] [place] [address] ANION GAP AGAP Date Value Range Status 02/28/2014 12 5 - 20 mmol/L Final Testing performed at [facility], [address] [place] [address] Xr Chest Pa And Lateral 02/27/2014 PINA [...] 3-D reconstructi ons were performed using the Qwite 3-D software and sent to PACS. Oral Contrast: None I V contrast: 100 mL IsoVue 370 COMPARISON: None. FINDINGS: CHEST: The heel emery buffer view shows a p acemaker via left [...] pacemaker, [facility] complaining of chest pain which [...] catheterization recently done by Dr. Singletary in [place] in December 2013 at [facility] which showed minimal occlusive disease. One artery was 25% and another was 15%, per patient. I requested official cardiac catheterization report from [place] and still waiting for it to come. [...] are the prescriptions that you need to leaf size picker. You may get these medications from any pharmacy. amLODIPine 5 MG tablet pantoprazole 40 MG tablet Activity: activity as tolerated Diet: cardiac diet Wound Care: not applicable There are no Patient Instructions on file for this visit. Per Pt None Chaka Ortiz MD [address] [facility] [id number] In 1 week Ariel Pulido MD [address] [facility] [phone] In 1 week Daljit Singletary MD [address] [facility] [address] [facility] [address] In 1 week Signed: DEV MONTANO 02/28/2014 10:45 AM Addendum:ADDENDUM I just received a cardiac catheterization report from [facility], [place], which was done on December 25, 2013. [...] 02/28/141211 Date of Service: 02/28/141210 Status: Signed Parking Enforcement Specialist: Bijal Sosa RN (Registered Nurse) Discharge instructions [...] 02/28/1411 Date of Service: 02/28/1411 Status: Signed Parking Enforcement Specialist: Mary Wetzel RPH (Pharmacist) Clinical Pharmacy Note: [...] PharmD 02/28/2014 12:11 AM Electronically signed by [facility], Provider at 07/17/2019 6:37 PM Karen [...] | | | | | | [place] [address] | | | | | | [phone] | | | | | | | | +--------+ + + + + | 05/01/ | Procedure | Cardiology | | | | 2019 | visit | | | | +--------+ + + + + | 05/01/ | Office | Cardiology | Silvia | | | 2019 | Visit | | [address] | | | | | | [place], | | | | | | [place] [address] | | | | | | [phone] | | | | | | | | +--------+ + + + + | 05/21/ | Implant | Cardiology | Daljit Singletary, | Remote Device | | 2020 | Monitor | | [address] | Interrogation | | | | | [facility], | (Primary Dx); | | | | | [place] [address] | Pacemaker; | | | | | [phone] | Sinoatrial node | | | | [...] EXTERNAL | | | | performed at [facility];[address] | | LAB | | | | [address];[place], [place] | | | | | | [address] | | | | + + + [...] | | | | | | ACUTE LA Testing | | | | | | performed at [facility];[address] | | | | | | [facility];[place], [place] | | | | | | [address] | | | | + + + [...] | | | | | [place] [address] | | | | + + + + + + | Red Blood | 4.68Comment: Testing | 4.20 - 5.70 | EXTERNAL | | | Cells | performed at [facility], [address] | M/uL | LAB | | | Counted | [address], | | | | | | [place] [address] | | | | + + + + + + | Hemoglobin | 15.3Comment: Testing | 13.2 - 17.0 | EXTERNAL | | | | performed at [facility], [address] | g/dL | LAB | | | | [address], | | | | | | [place] [address] | | | | + + + + + + | Hematocrit, | 44.2Comment: Testing | 39.0 - 50.0 % | EXTERNAL | | | POC | performed at [facility], [address] | | LAB | | | | [address], | | | | | | [place] [address] | | | | + + + + + + | MCV | 94.5Comment: Testing | 80.0 - 100.0 fl | EXTERNAL | | | | performed at [facility], [address] | | LAB | | | | [address], | | | | | | [place] [address] | | | | + + + + + + | MCH | 32.6Comment: Testing | 27.0 - 34.0 pg | EXTERNAL | | | | performed at [facility], [address] | | LAB | | | | [address], | | | | | | [place] [address] | | | | + + + + + + | MCHC | 34.5Comment: Testing | 32.0 - 35.5 | EXTERNAL | | | | performed at [facility], [address] | g/dL | LAB | | | | [address], | | | | | | [place] [address] | | | | + + + + + + | RDW-CV | 45.5Comment: Testing | 37 - 53 fl | EXTERNAL | | | | performed at [facility], [address] | | LAB | | | | [address], | | | | | | [place] [address] | | | | + + + + + + | Platelet | 156Comment: Testing | 150 - 400 K/uL | EXTERNAL | | | Count | performed at [facility], [address] | | LAB | | | Plasma | [address], | | | | | | [place] [address] | | | | + + + + + + | MPV | 8.8Comment: Testing | fl | EXTERNAL | | | | performed at [facility], [address] | | LAB | | | | [address], | | | | | | [place] [address] | | | | + + + + + + | Differentia | AUTOMATEDComment: | | EXTERNAL | | | l Type | Testing performed at | | LAB | | | | [facility], [address] | | | | | | [place] | | | | | | [address] | | | | + + + + + + | % Segmented | 57.7Comment: Testing | % | EXTERNAL | | | | performed at [facility], [address] | | LAB | | | Neutrophils | [address], | | | | | | [place] [address] | | | | + + + + + + | % | 31.8Comment: Testing | % | EXTERNAL | | | Lymphocytes | performed at [facility], [address] | | LAB | | | | [address], | | | | | | [place] [address] | | | | + + + + + + | % Monocytes | 9.2Comment: Testing | % | EXTERNAL | | | | performed at [facility], [address] | | LAB | | | | [address], | | | | | | [place] [address] | | | | + + + + + + | % | 0.9Comment: Testing | % | EXTERNAL | | | Eosinophils | performed at [facility], [address] | | LAB | | | | [address], | | | | | | [place] [address] | | | | + + + + + + | % Basophils | 0.4Comment: Testing | % | EXTERNAL | | | | performed at [facility], [address] | | LAB | | | | [address], | | | | | | [place] [address] | | | | + + + + + + | Absolute | 3.9Comment: Testing | 1.9 - 7.4 K/uL | EXTERNAL | | | Segmented | performed at [facility], [address] | | LAB | | | Neutrophils | [address], | | | | | | [place] [address] | | | | + + + + + + | Absolute | 2.1Comment: Testing | 1.0 - 3.9 K/uL | EXTERNAL | | | Lymphocytes | performed at [facility], [address] | | LAB | | | | [address], | | | | | | [place] [address] | | | | + + + + + + | Absolute | 0.6Comment: Testing | 0 - 0.8 K/uL | EXTERNAL | | | Monocytes | performed at [facility], [address] | | LAB | | | | [address], | | | | | | [place] [address] | | | | + + + + + + | Absolute | 0.1Comment: Testing | 0 - 0.5 K/uL | EXTERNAL | | | Eosinophils | performed at [facility], [address] | | LAB | | | | [address], | | | | | | [place] [address] | | | | + + + + + + | Absolute | 0.0Comment: Testing | 0 - 0.1 K/uL | EXTERNAL | | | Basophils | performed at [facility], [address] | | LAB | | | | [address], | | | | | | [place] [address] | | | | + + + [...] | | | | performed at [facility], [address] | | LAB | | | | [address], | | | | | | [place] [address] | | | | + + + [...] | | | | performed at [facility], [address] | | LAB | | | | [address], | | | | | | [place] [address] | | | | + + + [...] EXTERNAL | | | | performed at [facility];[address] | | LAB | | | | [address];[place] | | | | | | [address] | | | | + + + [...] | | | | | [place] [address] | | | | + + + + + + | Triglycerid | 37Comment: Testing | mg/dL | EXTERNAL | | | es | performed at [facility], [address] | | LAB | | | | [address], | | | | | | [place] [address] | | | | + + + + + + | HDL | 35 (L)Comment: Testing | mg/dL | EXTERNAL | | | | performed at [facility], [address] | | LAB | | | | [address], | | | | | | [place] [address] | | | | + + + + + + | LDL, | 67Comment: Testing | mg/dL | EXTERNAL | | | Calculated | performed at [facility], [address] | | LAB | | | | [address], | | | | | | [place] [address] | | | | + + + [...] | | | | | [place] [address] | | | | + + + + + + | K | 3.4 (L)Comment: Testing | 3.5 - 4.9 | EXTERNAL | | | | performed at [facility], [address] | mmol/L | LAB | | | | [address], | | | | | | [place] [address] | | | | + + + + + + | Cl | 108Comment: Testing | 99 - 109 mmol/L | EXTERNAL | | | | performed at [facility], [address] | | LAB | | | | [address], | | | | | | [place] [address] | | | | + + + + + + | CO2 | 21 (L)Comment: Testing | 23 - 32 mmol/L | EXTERNAL | | | | performed at [facility], [address] | | LAB | | | | [address], | | | | | | [place] [address] | | | | + + + + + + | Anion Gap | 12Comment: Testing | 5 - 20 mmol/L | EXTERNAL | | | | performed at [facility], [address] | | LAB | | | | [address], | | | | | | [place] [address] | | | | + + + + + + | Glucose, | 107 (H)Comment: Testing | 65 - 99 mg/dL | EXTERNAL | | | Fasting | performed at [facility], [address] | | LAB | | | | [address], | | | | | | [place] [address] | | | | + + + + + + | BUN | 15Comment: Testing | 8 - 25 mg/dL | EXTERNAL | | | | performed at [facility], [address] | | LAB | | | | [address], | | | | | | [place] [address] | | | | + + + + + + | Creatinine | 0.74Comment: Testing | 0.70 - 1.30 | EXTERNAL | | | | performed at [facility], [address] | mg/dL | LAB | | | | [address], | | | | | | [place] [address] | | | | + + + + + + | BUN/Creatin | 20Comment: Testing | | EXTERNAL | | | ine Ratio | performed at [facility], [address] | | LAB | | | | [address], | | | | | | [place] [address] | | | | + + + + + + | Calcium | 8.9Comment: Testing | 8.5 - 10.2 | EXTERNAL | | | | performed at [facility], [address] | mg/dL | LAB | | | | [address], | | | | | | [place] [address] | | | | + + + + + + | Protein, | 6.1 (L)Comment: Testing | 6.3 - 8.2 g/dL | EXTERNAL | | | Total | performed at [facility], [address] | | LAB | | | | [address], | | | | | | [place] [address] | | | | + + + + + + | Albumin | 4.0Comment: Testing | 3.6 - 5.0 g/dL | EXTERNAL | | | | performed at [facility], [address] | | LAB | | | | [address], | | | | | | [place] [address] | | | | + + + + + + | Globulin | 2.1Comment: Testing | 1.3 - 4.9 g/dL | EXTERNAL | | | | performed at [facility], [address] | | LAB | | | | [address], | | | | | | [place] [address] | | | | + + + + + + | A/G Ratio | 1.9Comment: Testing | 1.0 - 2.4 | EXTERNAL | | | | performed at [facility], [address] | | LAB | | | | [address], | | | | | | [place] [address] | | | | + + + + + + | Bilirubin | 1.4Comment: Testing | 0.1 - 1.5 mg/dL | EXTERNAL | | | Total | performed at [facility], [address] | | LAB | | | | [address], | | | | | | [place], [place] [address] | | | | + + + + + + | ALP, | 46Comment: Testing | 35 - 115 U/L | EXTERNAL | | | External | performed at [facility], [address] | | LAB | | | | [address], | | | | | | [place] [address] | | | | + + + + + + | AST | 31Comment: Testing | 10 - 45 U/L | EXTERNAL | | | | performed at [facility], [address] | | LAB | | | | [address], | | | | | | [place] [address] | | | | + + + + + + | ALT | 27Comment: Testing | 10 - 65 U/L | EXTERNAL | | | | performed at [facility], [address] | | LAB | | | | [address], | | | | | | [place] [address] | | | | + + + [...] | | | | | at [facility], [address] | | | | | | [address], | | | | | | [place] [address] | | | | + + + [...] + + | Historically converted procedure from [facility] environment | EXTERNAL LAB | + + [...] EXTERNAL | | | | performed at [facility];[address] | | LAB | | | | [address];[place], [place] | | | | | | [address] | | | | + + + [...] | | | | | | ACUTE LA Testing | | | | | | performed at [facility];[address] | | | | | | [facility];[place], [place] | | | | | | [address] | | | | + + + [...] EXTERNAL | | | | performed at [facility];[address] | | LAB | | | [address];[place] | | | | | | [address] | | | | + + + [...] were | | | performed using the Qwite 3-D software and sent to PACS. Oral | | | Contrast: None IV contrast: 100 mL IsoVue 370 COMPARISON: None. | | | FINDINGS: CHEST: The heel emery buffer view shows a pacemaker via left | [...] Conversion - 07/07/2019 10:30 PM PDT [facility] | | CONTRAST02/27/2014 11:21 [...] reconstructions were performed | | using the Qwite 3-D software and sent to PACS. Oral Contrast: NoneIV contrast: 100 | | mL IsoVue 370 COMPARISON:None. FINDINGS: CHEST: The heel emery buffer view shows a pacemaker via | | [...] EXTERNAL | | | | performed at [facility];[address] | | LAB | | | | [address];[place] | | | | | | [address] | | | | + + + + + -+ | Red Blood | 5.19Comment: Testing | 4.20 - 5.70 | EXTERNAL | | | Cells | performed at [facility];[address] | M/uL | LAB | | | Counted | [address];[place] | | | | | | [address] | | | | + + + + + -+ | Hemoglobin | 16.8Comment: Testing | 13.2 - 17.0 | EXTERNAL | | | | performed at [facility];[address] | g/dL | LAB | | | | [address];[place] | | | | | | [address] | | | | + + + + + -+ | Hematocrit, | 49.5Comment: Testing | 39.0 - 50.0 % | EXTERNAL | | | POC | performed at [facility];[address] | | LAB | | | | [address];[place] | | | | | | [address] | | | | + + + + + -+ | MCV | 95.4Comment: Testing | 80.0 - 100.0 fl | EXTERNAL | | | | performed at [facility];[address] | | LAB | | | | [address];[place] | | | | | | [address] | | | | + + + + + -+ | MCH | 32.4Comment: Testing | 27.0 - 34.0 pg | EXTERNAL | | | | performed at [facility];[address] | | LAB | | | | [address];[place] | | | | | | [address] | | | | + + + + + -+ | MCHC | 34.0Comment: Testing | 32.0 - 35.5 | EXTERNAL | | | | performed at [facility];[address] | g/dL | LAB | | | | [address];[place] | | | | | | [address] | | | | + + + + + -+ | RDW-CV | 46.8Comment: Testing | 37 - 53 fl | EXTERNAL | | | | performed at [facility];[address] | | LAB | | | | [address];[place] | | | | | | [address] | | | | + + + + + -+ | Platelet | 179Comment: Testing | 150 - 400 K/uL | EXTERNAL | | | Count | performed at [facility];[address] | | LAB | | | Plasma | [address];[place] | | | | | | [address] | | | | + + + + + -+ | MPV | 8.6Comment: Testing | fl | EXTERNAL | | | | performed at [facility];[address] | | LAB | | | | [address];[place] | | | | | | [address] | | | | + + + + + -+ | Differentia | AUTOMATEDComment: | | EXTERNAL | | | l Type | Testing performed at | | LAB | | | | [facility];[address];[place] [address] | | | | + + + + + -+ | % Segmented | 62.4Comment: Testing | % | EXTERNAL | | | | performed at [facility];[address] | | LAB | | | Neutrophils | [address];[place] | | | | | | [address] | | | | + + + + + -+ | % | 26.3Comment: Testing | % | EXTERNAL | | | Lymphocytes | performed at [facility];[address] | | LAB | | | | [address];[place] | | | | | | [address] | | | | + + + + + -+ | % Monocytes | 10.3Comment: Testing | % | EXTERNAL | | | | performed at [facility];[address] | | LAB | | | | [address];[place] | | | | | | [address] | | | | + + + + + -+ | % | 0.5Comment: Testing | % | EXTERNAL | | | Eosinophils | performed at [facility];[address] | | LAB | | | | [address];[place] | | | | | | [address] | | | | + + + + + -+ | % Basophils | 0.5Comment: Testing | % | EXTERNAL | | | | performed at [facility];[address] | | LAB | | | | [address];[place] | | | | | | [address] | | | | + + + + + -+ | Absolute | 6.3Comment: Testing | 1.9 - 7.4 K/uL | EXTERNAL | | | Segmented | performed at [facility];[address] | | LAB | | | Neutrophils | [address];[place] | | | | | | [address] | | | | + + + + + -+ | Absolute | 2.7Comment: Testing | 1.0 - 3.9 K/uL | EXTERNAL | | | Lymphocytes | performed at [facility];[address] | | LAB | | | | [address];[place] | | | | | | [address] | | | | + + + + + -+ | Absolute | 1.0 (H)Comment: Testing | 0 - 0.8 K/uL | EXTERNAL | | | Monocytes | performed at [facility];[address] | | LAB | | | | [address];[place] | | | | | | [address] | | | | + + + + + -+ | Absolute | 0.0Comment: Testing | 0 - 0.5 K/uL | EXTERNAL | | | Eosinophils | performed at [facility];[address] | | LAB | | | | [address];[place] | | | | | | [address] | | | | + + + + + -+ | Absolute | 0.1Comment: Testing | 0 - 0.1 K/uL | EXTERNAL | | | Basophils | performed at [facility];[address] | | LAB | | | | [address];[place] | | | | | | [address] | | | | + + + + + -+ | Na | 139Comment: Testing | 135 - 143 | EXTERNAL | | | | performed at [facility];[address] | mmol/L | LAB | | | | [address];[place] | | | | | | [address] | | | | + + + + + -+ | K | 3.4 (L)Comment: Testing | 3.5 - 4.9 | EXTERNAL | | | | performed at [facility];[address] | mmol/L | LAB | | | | [address];[place] | | | | | | [address] | | | | + + + + + -+ | Cl | 108Comment: Testing | 99 - 109 mmol/L | EXTERNAL | | | | performed at [facility];[address] | | LAB | | | | [address];[place] | | | | | | [address] | | | | + + + + + -+ | CO2 | 21 (L)Comment: Testing | 23 - 32 mmol/L | EXTERNAL | | | | performed at [facility];[address] | | LAB | | | | [address];[place] | | | | | | [address] | | | | + + + + + -+ | Anion Gap | 14Comment: Testing | 5 - 20 mmol/L | EXTERNAL | | | | performed at [facility];[address] | | LAB | | | | [address];[place] | | | | | | [address] | | | | + + + + + -+ | Glucose, | 124 (H)Comment: Testing | 65 - 99 mg/dL | EXTERNAL | | | Fasting | performed at [facility];[address] | | LAB | | | | [address];[place] | | | | | | [address] | | | | + + + + + -+ | BUN | 20Comment: Testing | 8 - 25 mg/dL | EXTERNAL | | | | performed at [facility];[address] | | LAB | | | | [address];[place] | | | | | | [address] | | | | + + + + + -+ | Creatinine | 0.97Comment: Testing | 0.70 - 1.30 | EXTERNAL | | | | performed at [facility];[address] | mg/dL | LAB | | | | [address];[place] | | | | | | [address] | | | | + + + + + -+ | BUN/Creatin | 21Comment: Testing | | EXTERNAL | | | ine Ratio | performed at [facility];[address] | | LAB | | | | [address];[place] | | | | | | [address] | | | | + + + + + -+ | Calcium | 8.7Comment: Testing | 8.5 - 10.2 | EXTERNAL | | | | performed at [facility];888 | mg/dL | LAB | | | | [address];[place] | | | | | | [address] | | | | + + + + + -+ | Protein, | 7.6Comment: Testing | 6.3 - 8.2 g/dL | EXTERNAL | | | Total | performed at [facility];[address] | | LAB | | | | [address];[place] | | | | | | [address] | | | | + + + + + -+ | Albumin | 4.2Comment: Testing | 3.6 - 5.0 g/dL | EXTERNAL | | | | performed at [facility];[address] | | LAB | | | | [address];[place] | | | | | | [id number] | | | | + + + + + -+ | Globulin | 3.4Comment: Testing | 1.3 - 4.9 g/dL | EXTERNAL | | | | performed at [facility];[address] | | LAB | | | | [address];[place] | | | | | | [address] | | | | + + + + + -+ | A/G Ratio | 1.2Comment: Testing | 1.0 - 2.4 | EXTERNAL | | | | performed at [facility];[address] | | LAB | | | | [address];[place] | | | | | | [address] | | | | + + + + + -+ | Bilirubin | 1.1Comment: Testing | 0.1 - 1.5 mg/dL | EXTERNAL | | | Total | performed at [facility];[address] | | LAB | | | | [address];[place] | | | | | | [address] | | | | + + + + + -+ | ALP, | 77Comment: Testing | 35 - 115 U/L | EXTERNAL | | | External | performed at [facility];[address] | | LAB | | | | [address];[place] | | | | | | [address] | | | | + + + + + -+ | AST | 35Comment: Testing | 10 - 45 U/L | EXTERNAL | | | | performed at [facility];[address] | | LAB | | | | [address];[place] | | | | | | [address] | | | | + + + + + -+ | ALT | 43Comment: Testing | 10 - 65 U/L | EXTERNAL | | | | performed at [facility];[address] | | LAB | | | | [address] Hogan;[place]STOP[place] Rodas | | | | | | [address] | | | | + + + [...] | | | | | at [facility];[address] | | | | | | Bldong;[place] [address] | | | | + + + + + -+ | CK, Total | 510 (H)Comment: Testing | 55 - 400 U/L | EXTERNAL | | | | performed at [facility];[address] | | LAB | | | | [address];[place] | | | | | | [address] | | | | + + + [...] | | | | | performed at [facility];[address] | | | | | | [address];[place] | | | | | | [address] | | | | + + + + + -+ | aPTT, | 24Comment: Testing | 23 - 32 seconds | EXTERNAL | | | Patient | performed at [facility];[address] | | LAB | | | | [address];[place] | | | | | | [address] | | | | + + + + + -+ | CK-MB | 9.3 (H)Comment: Testing | 0.5 - 3.6 ng/mL | EXTERNAL | | | | performed at [facility];888 | | LAB | | | | Lo [facility];[place], [place] | | | | | | [address] | | | | + + + [...] EXTERNAL | | | | performed at [facility];888 | uIU/mL | LAB | | | | Wally Hogan;[place] | | | | | | [address] | | | | + + + [...] EXTERNAL | | | | performed at [facility];888 | | LAB | | | | Wally Hogan;[place], [place] | | | | | | [address] | | | | + + + [...] (500), | | | | | | web content editor TERESE NINA (2) | | | [...]
--- OUTSIDE RECORDS SUMMARY | ~2020-04-15 | XMS | Encounter Summary ---
Demographics + + + | Address | [address] | | | [place] [address] | + + + | Home Phone [...] Team Providers + +------+ + | Care Gravel Inspector Name | Role | Phone | [...] | Aneurysmal | [place], | [address] | | | | | dilatation | PARISA [place] | [place], | | | | | ([facility]) | [address] | [place] | | | | | Procedures | [place] | [address] | | | | | ECHO | [place], | Phone: | | | | | Complete | [place] | [phone] | | | | | | [address] | Fax: | | | | | | Phone: | [phone] | | | | | | [phone] | | | | | | | Fax: | | | | | | | [phone] | | +--------+--------+ + + + + [...] | | | | | Aneurysmal | [place], | [address] | | | | | dilatation | PARISA Solis | [place], | | | | | ([facility]) | [address] | [place] | | | | | Procedures | [place] | [address] | | | | | ECHO | [place], | Phone: | | | | | Complete | [place] | [phone] | | | | | | [address] | Fax: | | | | | | Phone: | [phone] | | | | | | [phone] | | | | | | | Fax: | | | | | | | [phone] | | +--------+--------+ + + + + Encounter Details +--------+ + + + + | Date | Type | Department | Care Team | Description | +--------+ + + + + | 11/16/ | Hospital | [facility] | [place], | Aneurysmal | | 2017 | Encounter | MED CTR ECHO [address] | Janeen, LAMINATING PRESS OPERATOR [address] | dilatation (HCC) | | | | [place] | [place], | | | | | [place], [place] [address] | [place] [address] | | | | | [phone] | [phone] | | | | | | | [...] + + + +---------+ + + | [place]-3 Fatty | CAPS, one capsule by | [...] | | | | | | [place] [address] | | | | | | [phone] | | | | | | | | +--------+ + + + + | 05/01/ | Procedure | Cardiology | | | | 2019 | visit | | | | +--------+ + + + + | 05/01/ | Office | Cardiology | Siliva, | | | 2019 | Visit | | PARISA [address] | | | | | | [place], | | | | | | [place] [address] | | | | | | [phone] | | | | | | | | +--------+ + + + + | 05/21/ | Implant | Cardiology | Sydni Singletary, | Remote Device | | 2019 | Monitor | | MD [address] [place] | Interrogation | | | | | [place], | (Primary Dx); | | | | | [place] [address] | Pacemaker; | | | | | [phone] | Sinoatrial node | | | | [...] Room Number SARAH Patient | | | [id number] Date of Study 11/16/2017 Number | | | Visit Number [id number] | | | Referring Physician GURJIT TROY Number | | | NORMA OSLIS Date | | | of 1960 Inverted Block Operator ROMAINE | | | MARISSA TIPTON Age 57 year(s) Interpreting | | | GURJIT TROY | | | Oil Field Equipment Mechanic Supervisor SYDNI SINGLETARY, | | | | | | Gender Male Nurse | | | Stress Raw Mill Operator Procedure Type of | | | [...] | | | EF | | | Cvswumsgs91% Left Ventricle Diastolic Dimension: 5.12 cm | [...] Volume: 46.33 ml | | | EF Bxzqijgri55% | | | | | | Left [...] BARRY Room Number SARAH | | Patient [id number] Date of Study 11/16/2017 Number Visit Number | | [id number] Referring Physician GURJIT TROY | | Number RHANGELIA SOLIS Date of | | 1960 Inverted Block Operator ROMAINE TIPTON PARESH Age 57 year(s) | | Interpreting GURJIT TROY Oil Field Equipment Mechanic Supervisor | | SYDNI SINGLETARY MD | | [...] LA Volume: 46.33 ml | | EF Renprkwit66% Left Ventricle Diastolic Dimension: 5.12 cm Systolic [...] LA Volume: 46.33 ml | | EF Qoyytywjr28% | | | | Left Ventricle | [...]
--- OUTSIDE RECORDS SUMMARY | ~2020-04-15 | XMS | Encounter Summary ---
Demographics + + + | Address | [address] | | | [place] [address] | + + + | Home Phone [...] Team Providers + +------+ + | Care Ranch Cook Name | Role | Phone | [...] + + | 08/29/ | Office | [facility] | [place]via, | Essential | | 2015 | Visit | CARDIOLOGY [address] | PARISA [place] [address] | hypertension | | | | [place], | [place], | (Primary Dx); | | | | [place] [address] | [place] [address] | Coronary artery | | | | [phone] | [phone] | disease involving | | | | | | [place] coronary | | | | | | [...] was seen in the emergency room at [facility] on 08/23/20 15 and the ER physician reviewed his chart saying that there were 2 ultrasounds from [facility] both of them are clear of DVT but reveal some venous insufficiency. Today, arian ent tells me that he started having swelling in both his feet within a week when he got to [facility]. He had extensive traveling. He went [...] Coronary artery disease involving [place] coronary artery without angina pectoris Cannabis abuse, [...] by mouth every evening. 90 tablet 3 [facility] Natural Products [...] 3rd dose, call 911 100 tablet 3 [place]-3 Fatty Acids (SALMON OIL-1000 PO) CAPS, one [...] Daily. to reduce urinary frequenc y Lot #[id number], exp 07/2016 (Patient taking differently: Take 8 mg by mouth Daily. PATIENT STA YOSELIN NO LONGER TAKING THIS MEDICATION. STATED ON 08/29/2015. to reduce urinary frequency Lot #[id number], exp 07/2016) 21 capsule 0 Specialty Vitamins [...] PLTEX 163 07/26/2014 I reviewed records from [facility] for emergency department visit o [...] brought reports to the emergency room at [facility] and according to the not es [...] to go back in 3 days to [place] for an attempt of ablation under general [...] dizziness. He is in class I-II of [place] Heart [employer] functional class. T here are [...] this chart may have been created with [employer] voice recognition software. Occasi onal wrong-word or [...] | | | | | | [place] [address] | | | | | | [phone] | | | | | | | [...] | | | | | | [place] [address] | | | | | | [phone] | | | | | | | | +--------+ + + + + | 05/21/ | Implant | Cardiology | Sydni Singletary, | Remote Device | 2019 | Monitor | | MD [address] [place] | Interrogation | | | | | [place], | (Primary Dx); | | | | | [place] [address] | Pacemaker; | | | | | [phone] | Sinoatrial node | | | | [...] the | | | | PDT | [place] coronary | results section. | | | [...] HISTORY: DVT. COMPARISON: None. TECHNIQUE: Compression | [facility] | | sonography was performed from [...] to the ordering provider, by the legal file clerk, | | | immediately following the [...] the ordering provider, by the | |legal file clerk, immediately following the exam. | | | | | |Dictated and Signed by: Emmanuel Gibbons MD | | Electronically signed: 08/29/2015 3:25 PM | + + + + + + + | Performing | Address | City/State/Zipcode | Phone Number | | Organization | | | | + + + + + | [facility] | [address] | [place] | [phone] | | [facility] | | [address] | | | - IMAGING | | [...] MD | | | | | | ([id number]) on 08/29/2015 | | | | | [...] Coronary artery disease involving [place] coronary artery without angina pectoris | + + | DVT (deep venous thrombosis), bilateral | + + documented in this encounter
--- OUTSIDE RECORDS SUMMARY | ~2020-04-15 | XMS | Encounter Summary ---
Demographics + + + | Address | [address] | | | [place] [address] | + + + | Home Phone [...] Providers + +------+ + | Care Professional Caster Name | Role | Phone | + +------+ + | Kirk French MD | PCP | | + +------+ + Encounter Details +--------+ + + + + | Date | Type | Department | Care Team | Description | +--------+ + + + + | 12/23/ | Emergency | [facility] | Cristal Alexander, | Chronic neck pain; | | 2015 | | [facility]ICAL [facility]ENTER | DO [address] | Headache(784.0) | | | | EMERGENCY CENTER | [place] [address] | | | | | [address] | [phone] | | | | | [place], [place] | | | | | | [address] | | | | | | [phone] | | | +--------+ + + + [...] + + + +---------+ + + | [place]-3 Fatty | CAPS, one capsule by | [...] | | | | | | | #[id number], exp 07/2016 | | | | | [...] | | | | | | [place] [address] | | | | | | [phone] | | | | | | | [...] | | | | | | [place] [address] | | | | | | [phone] | | | | | | | | +--------+ + + + + | 05/21/ | Implant | Cardiology | Daljit Singletary, | Remote Device | | 2019 | Monitor | | [address] [facility] | Interrogation | | | | | [facility], | (Primary Dx); | | | | | [place] [id number] | Pacemaker; | | | | | [phone] | Sinoatrial node | | | | [...] Conversion - 07/07/2019 5:05 AM PDT PINA [id number] years MaleCT | | CERVICAL SPINE WO [...]
--- OUTSIDE RECORDS SUMMARY | ~2020-04-15 | XMS | Encounter Summary ---
Demographics + + + | Address | [address] | | | [place] [address] | + + + | Home Phone [...] Providers + +------+ + | Care Insurance Defense Paralegal Name | Role | Phone | [...] | 06/22/ | Telephone | [facility] | Vasiliy Michael Kelsey, | Eye Problem | | 2012 | | MEDICINE [place] | DO [address] | | | | | [address] | [place] | | | | | [place] | [address] | | | | | [address] | | | | | | [phone] | | | +--------+ + + + [...] | | | | | | [place] [address] | | | | | | [phone] | | | | | | | [...] | | | | | | [place] [address] | | | | | | [phone] | | | | | | | | +--------+ + + + + | 05/21/ | Implant | Cardiology | Daljit Singletary, | Remote Device | | 2019 | Monitor | | [facility] | Interrogation | | | | | [place], | (Primary Dx); | | | | | [place] [address] | Pacemaker; | | | | | [phone] | Sinoatrial node | | | | | | dysfunction (HCC) | | | | | | with symptomatic | | | | | | bradycardia | +--------+ + + + + documented as of this encounter Visit Diagnoses Not on filedocumented in this encounter"
--- OUTSIDE RECORDS SUMMARY | ~2020-04-15 | XMS | Encounter Summary ---
Demographics + + + | Address | [address] | | | [place] [address] | + + + | Home Phone [...] Providers + +------+ + | Care Foam Dispenser Name | Role | Phone | + [...] unspecified | [address] | [address] | | | | | type | [address] | [place], | | | | | Procedures | [place], | [place] | | | | | [place] | [place] [address] | [address] | | | | | Stress Test | Phone: | Phone: | | | | | (Vasodilator | [phone] | [phone] | | | | | ) CHG | Fax: | Fax: | | | | | MYOCARDIAL | [phone] | [phone] | | | | | SPECT | | | | | | | MULTIPLE | | | | | | | STUDIES UT | | | | | | | CV STRS TST | | | | | | | XERS&/OR RX | | | | | | | CONT ECG W/O | | | | | | | I&R UT | | | | | | [...] unspecified | [address] | [address] | | | | | type | [address] | [place], | | | | | Procedures | [place], | [place] | | | | | [place] | [place] [address] | [address] | | | | | Stress Test | Phone: | Phone: | | | | | (Vasodilator | [phone] | [phone] | | | | | ) CHG | Fax: | Fax: | | | | | MYOCARDIAL | [phone] | [phone] | | | | | SPECT | | | | | | | MULTIPLE | | | | | | | STUDIES UT | | | | | | | CV STRS TST | | | | | | | XERS&/OR RX | | | | | | | CONT ECG W/O | | | | | | | I&R UT | | | | | | [...] + + | 07/21/ | Hospital | [facility] | Daljit Singletary, | Chest pain, | | 2018 | Encounter | MED CTR NUCLEAR | MD [address] [place] | unspecified type | | | | MEDICINE [address] [place], | | | | | [place], | [place] [address] | | | | | [place] [address] | [phone] | | | | | [phone] | | | | | | | Catalogue Maker[employer]avel | | +--------+ + + + [...] + + + +---------+ + + | [place]-3 Fatty | CAPS, one capsule by | [...] | | | | | | [place] [address] | | | | | | [phone] | | | | | | | | +--------+ + + + + | 05/01/ | Procedure | Cardiology | | | | 2019 | visit | | | | +--------+ + + + + | 05/01/ | Office | Cardiology | Silvia, | | | 2019 | Visit | | [address] [place] W | | | | | | [place], | | | | | | [place] [address] | | | | | | [phone] | | | | | | | | +--------+ + + + + | 05/21/ | Implant | Cardiology | Daljit Singletary, | Remote Device | 2019 | Monitor | | [address] [place] | Interrogation | | | | | [place], | (Primary Dx); | | | | | [place] [address] | Pacemaker; | | | | | [phone] | Sinoatrial node | | | | [...] | | | | | doctor, Starting [facility] 07/21/18 at | | | | | [...] | | | | | | Starting [facility] 07/21/18 at 0822, For | | | | | | | 1 dose, Nuclear Medicine | | | | | | + +-------+ + +---+---+ +---+---+ | | | +---+---+ documented in this encounter"
--- OUTSIDE RECORDS SUMMARY | ~2020-04-15 | XMS | Encounter Summary ---
Demographics + + + | Address | [address] | | | [place] [address] | + + + | Home Phone [...] Providers + +------+ + | Care Rehab Office Coordinator Name | Role | Phone | [...] W | | | | | [place], | [place], | | | | | [place] [address] | [place] [address] | | | | | [phone] | [phone] | | | | | | | [...] | | | | | | [place] [address] | | | | | | [phone] | | | | | | | [...] | | | | | | [place] [address] | | | | | | [phone] | | | | | | | | +--------+ + + + + | 05/21/ | Implant | Cardiology | Daljit Singletary, | Remote Device | 2019 | Monitor | | [address] [place] | Interrogation | | | | | [place], | (Primary Dx); | | | | | [place] [address] | Pacemaker; | | | | | [phone] | Sinoatrial node | | | | [...] | [address] | [place] | | | [facility] | | [address] | | | [...] | [address] | [place] | | | [facility] | | [address] | | | [...]
--- OUTSIDE RECORDS SUMMARY | ~2020-04-15 | XMS | Encounter Summary ---
Demographics + + + | Address | [address] | | | [place] [address] | + + + | Home Phone [...] Team Providers + +------+ + | Care Cargo Operations Agent Name | Role | Phone | + +------+ + | Kirk French MD | PCP | | + +------+ + Encounter Details +--------+ + + + + | Date | Type | Department | Care Team | Description | +--------+ + + + + | 12/24/ | [facility] | [facility] | Emmanuel Daniel MD | Pain of upper | | 2018 | Encounter | MED CTR MP INTRA OP | [address], [place] | abdomen (Primary | | | | [address] | [address] [place], [place] | Dx); Functional | | | | [place], [place] | [address] | diarrhea; Weight | | | | [address] | | loss | | | | [phone] | | | +--------+ + + + [...] + + + +---------+ + + | [place]-3 Fatty | CAPS, one capsule by | [...] | | | | | | [place], | | | | | | [place] [address] | | | | | | [phone] | | | | | | | | +--------+ + + + + | 05/01/ | Procedure | Cardiology | | | | 2019 | visit | | | | +--------+ + + + + | 05/01/ | Office | Cardiology | Silvia, | | | 2019 | Visit | | [address] [place] [address] | | | | | | [place], | | | | | | [place] [address] | | | | | | [phone] | | | | | | | | +--------+ + + + + | 05/21/ | Implant | Cardiology | Daljit Singletary, | Remote Device | | 2019 | Monitor | | MD [address] [facility] | Interrogation | | | | | [place], | (Primary Dx); | | | | | [place] [address] | Pacemaker; | | | | | [phone] | Sinoatrial node | | | | [...] + | Performed at: 01 - [facility] [place] [address], | REFERENCE LAB | | [place], [place] [id number] Theatrical Dresser: William Andrew MD, Phone: | ARSH - KINA | | [phone] | | + + + + + + + + | Performing | Address | City/State/Zipcode | Phone Number | | Organization | | | | + + + + + | REFERENCE LAB | [address] | [place], [place] | [phone] | | ARSH - K[place] | [facility] | [address] | | + + + + + [...] + | [facility] | [address] | [place] | [phone] | | [facility] | | [address] | | | - LABORATORY | | [...] | | | Aeromonas, Plesiomonas, | | [facility] | | | | E. coli O157 or | | MEDICAL | | | | Yersinia isolated. | | CENTER - | | | | | | LABORATORY | | + + + + + + | Culture | 4+ Usual FloraComment: | | [facility] | | | | Consistent with usual | | [facility] | | | | enteric [...] [address] | [place] | [phone] | | [facility] | | [address] | | | - LABORATORY | | [...] [address] | [place] | [phone] | | [facility] | | [address] | | | - LABORATORY | | [...] + | Performed at: 01 - [facility] [place] [address], | REFERENCE LAB | | [place], [place] [id number] Theatrical Dresser: William Andrew MD, Phone: | [facility] | | [phone] | | + + + + + + + + | Performing | Address | City/State/Zipcode | Phone Number | | Organization | | | | + + + + + | REFERENCE LAB | [address] | [place], [place] | [phone] | | [facility] | [facility] | [address] | | + + + + + Lactoferrin, Fecal, Qual (12/24/2017 1:34 PM PST) + + + + + + | Component | Value | Ref Range | Performed | Pathologist | | | | | At | Signature | + + + + + + | Lactoferrin | Negative | Negative | [facility] | | | , Qual | | | [facility] | | | | | | MEDICAL [...] [address] | [place] | [phone] | | [facility] | | [address] | | | - LABORATORY | | [...] + | [facility] | [address] | [place] | [phone] | | [facility] | | [address] | | | - LABORATORY | | [...] | | dium | | | [facility] | | | Antigen | | [...] [address] | [place] | [phone] | | [facility] | | [address] | | | - LABORATORY | | [...] | + + + + + | [facility] | [address] | [place], [place] | [phone] | | [facility] | | [address] | | | - LABORATORY | | [...] + | [facility] | [address] | [place], [place] | [phone] | | [facility] | | [address] | | | - LABORATORY | | | | + + + + + EGD (12/24/2017 1:19 PM PST) + + | Specimen | + + | | + + + + -+ | Narrative | Performed At | + + -+ | | [facility] | | GastroenterologyPatient Name: Moe SanchezProcedpasha Date: 12/24/2017 | [facility] | | 1:19 PMMRN: [id number] #: [id number] of : | | | 9Admit Type: AmbulatoryAge: 57Room: [facility] 01Gender: MaleNote | | | Status: FinalizedAttending MD: Emmanuel Daniel , MDProcedure: | | | Upper GI endoscopyIndications: Diarrhea, Weight | | | lossProviders: Emmanuel Daniel MD, Maria Isabel Morris RN, | | | Kim Hicks, Quality Head, [place] | | | Sapna Barakat MD (Anesthesia [...] the anesthesiologist and | | | the water pollution control technician in the endoscopy suite. Mental [...] PMScope Out: 1:31:13 PM | | | [facility], [address] [place] [address] | | | [place] [address] | | | - Discharge patient to [...] |Scope Out: 1:31:13 PM | | | [facility], [address] [place] [address] | | | [address] | | + + -+ + +---------+ [...] 12/24/2017 | [facility] | | 1:17 PMMRN: [id number] #: [id number] of : | | | 9Admit Type: AmbulatoryAge: 57Room: [facility] 01Gender: MaleNote | | | Status: FinalizedAttending MD: Emmanuel Daniel MDProcedure: | | | ColonoscopyIndications: Clinically significant diarrhea of | | | unexplained originProviders: Emmanuel Daniel MD, Maria Isabel | | | Arturo RN, Kim Hicks, Quality Head, | | | Jarett Barakat MD (Anesthesia [...] | | | the anesthesiologist and the water pollution control technician in the endoscopy suite. | [...] Scope In: 1:32:55 PMScope Out: 1:48:[address] [facility] | | | [facility], [address] [place] [address] | | | [phone] | | | - Await pathology results. [...] |Scope Out: 1:48:57 PM | | | [facility], [address] [place] [address] | | | [address] | | + + -+ + +---------+ [...] in | | | formalin labeled "Moe Frankton, A." and labeled "duodenal bx" on | | | the requisition are six pink-lin tissue fragments measuring from | | | 0.3-0.8 cm submitted, all in (A1). B. Received in formalin labeled | | | "Moe Frankton, C." and labeled "B, left colon bx" on the | | | requisition are five pink-lin tissue fragments measuring from 0.2-09.9 | | | cm, submitted, all in (B1). C. Received in formalin labeled | | | "Moe Frankton, D." and labeled "C, bx TI" on [...] developed and its performance characteristics determined by [facility] | | | [employer]. It has not been cleared or approved by the U.S. Food | | | and Drug Administration. The FDA has determined that such clearance | | | or approval is not necessary. This test is used for clinical | | | purposes. It should not be regarded as investigational or for | | | research. [facility] is certified under the Clinical | | | Laboratory Improvement Amendments of 1988 (CLIA) as qualified to | | | perform high complexity clinical laboratory testing. This assay | | | has not been validated for specimens that have been decalcified. | | | PERFORMING LABORATORY: Tissue processing and slide preparation were | | | performed by [facility], [address], [facility] | | | [place] [address] (Horse Identifier: Evan Frausto M.D. [place]#: | | | [id number]). Professional interpretation was performed by [facility] | | | [employer], [address], [place] [address] | | | (Horse Identifier: Evan Frausto M.D.; IA#: [id number]). | | | Diagnostician: Rafael Bales MD [...]
--- OUTSIDE RECORDS SUMMARY | ~2020-04-15 | XMS | Encounter Summary ---
Demographics + + + | Address | [address] | | | [place] [address] | + + + | Home Phone [...] Team Providers + +------+ + | Care Terra Cotta Mold Maker Name | Role | Phone | + +------+ + | Kirk French MD | PCP | | + +------+ + Encounter Details +--------+---------+ + + + | Date | Type | Department | Care Team | Description | +--------+---------+ + + + | 01/25/ | Surgery | [facility] | Daljit Singletary, | CV LHC | | 2019 | | MED CTR CV INTRA OP | MD [address] | | | | | [address] | [address] [place], | | | | | [place] | [place] [address] | | | | | [address] | [phone] | | | | | [phone] | | | +--------+---------+ + + + [...] by your healthcare provider Date Last Reviewed: 09/22/[id number] [employer]. [address] [place] [address]. All righ ts reserved. This information is [...] + + + +---------+ + + | [place]-3 Fatty | CAPS, one capsule by [...] | | | | | | [place] [address] | | | | | | [phone] | | | | | | | [...] | | | | | | [place] [address] | | | | | | [phone] | | | | | | | | +--------+ + + + + | 05/21/ | Implant | Cardiology | Daljit Singletary, | Remote Device | | 2019 | Monitor | | MD [address] | Interrogation | | | | | [place], | (Primary Dx); | | | | | [place] [address] | Pacemaker; | | | | | [phone] | Sinoatrial node | | | | [...] (1960) MEDICAL RECORD NUMBER: | | | [id number] OF PROCEDURE: 01/25/2019 APPLICATIONS INSTRUCTOR: Daljit | | | MD Gemini PROCEDURES [...] | | |PRIMARY CARE PROVIDER: | | |Krik French MD | | | | | [...] Sanchez, (1960) | | OF PROCEDURE: 01/25/2019PRIMARY LABORER AIRPORT MAINTENANCE: Daljit Singletary MD PROCEDURES | | PERFORMED:Coronary [...] | Aggressive medical management. | | at 9:33PRMISSION [facility]OSPITALRY CARE PROVIDER:Kirk French MDFor additional detail [...] or lesion | | type, unspecified whether king salmon or transplanted heart | + + documented [...]
--- OUTSIDE RECORDS SUMMARY | ~2020-04-15 | XMS | Encounter Summary ---
Demographics + + + | Address | [address] | | | [place] [address] | + + + | Home Phone [...] Providers + +------+ + | Care Mobile Mechanic Name | Role | Phone | [...] | RN | | | | | [place], | | | | | | [place] [address] | | | | | | [phone] | | | +--------+ + + + [...] | | | | | | [place] [address] | | | | | | [phone] | | | | | | | [...] | | | | | | [place] [address] | | | | | | [phone] | | | | | | | | +--------+ + + + + | 05/21/ | Implant | Cardiology | Daljit Singletary, | Remote Device | 2019 | Monitor | | [address] [place] | Interrogation | | | | | [place], | (Primary Dx); | | | | | [place] [address] | Pacemaker; | | | | | [phone] | Sinoatrial node | | | | | | dysfunction (HCC) | | | | | | with symptomatic | | | | | | bradycardia | +--------+ + + + + documented as of this encounter Visit Diagnoses Not on filedocumented in this encounter"
--- OUTSIDE RECORDS SUMMARY | ~2020-04-15 | XMS | Encounter Summary ---
Demographics + + + | Address | [address] | | | [place] [address] | + + + | Home Phone [...] Team Providers + +------+ + | Care Check Clerk Name | Role | Phone | + +------+ + PCP | Unavailable | + +------+ + Encounter Details +--------+ + + + + | Date | Type | Department | Care Team | Description | +--------+ + + + + | 06/17/ | Hospital | [facility] | | | | 2008 | Encounter | MED CTR EMERGENCY | | | | | | [place] [address] | | | | | | [place] | | | | | | [address] | | | | | | [phone] | | | +--------+ + + + [...] | | | | | | [place] [address] | | | | | | [phone] | | | | | | | | +--------+ + + + + | 05/01/ | Procedure | Cardiology | | | | 2019 | visit | | | | +--------+ + + + + | 05/01/ | Office | Cardiology | Silvia, | | | 2019 | Visit | | [address] | | | | | | [place], | | | | | | [place] [address] | | | | | | [phone] | | | | | | | | +--------+ + + + + | 05/21/ | Implant | Cardiology | Daljit Singletary, | Remote Device | 2019 | Monitor | | [address] [place] | Interrogation | | | | | [place], | (Primary Dx); | | | | | [place] [address] | Pacemaker; | | | | | [phone] | Sinoatrial node | | | | | | dysfunction (HCC) | | | | | | with symptomatic | | | | | | bradycardia | +--------+ + + + + documented as of this encounter Visit Diagnoses Not on filedocumented in this encounter"
--- OUTSIDE RECORDS SUMMARY | ~2020-04-15 | XMS | Encounter Summary ---
Demographics + + + | Address | [address] | | | [place] [address] | + + + | Home Phone [...] Providers + +------+ + | Care Shoe Turner Name | Role | Phone | + +------+ + PCP | Unavailable | + +------+ + Encounter Details +--------+ + + + + | Date | Type | Department | Care Team | Description | +--------+ + + + + | 02/21/ | [facility] | [facility] | Geri Angel, | | | 2011 | Encounter | MED CTR XRAY [address] | IC DESIGNER STANDARD CELLS [address] | | | | | [place] | [address] [place] | | | | | [place] [address] | [address] | | | | | [phone] | | | +--------+ + + + [...] W | | | | | | [place], | | | | | | [place] [address] | | | | | | [phone] | | | | | | | | +--------+ + + + + | 05/01/ | Procedure | Cardiology | | | | 2019 | visit | | | | +--------+ + + + + | 05/01/ | Office | Cardiology | Silvia, | | | 2019 | Visit | | [address] | | | | | | [place], | | | | | | [place] [address] | | | | | | [phone] | | | | | | | | +--------+ + + + + | 05/21/ | Implant | Cardiology | Daljit Singletary, | Remote Device | | 2019 | Monitor | | [address] [place] | Interrogation | | | | | [place], | (Primary Dx); | | | | | [place] [address] | Pacemaker; | | | | | [phone] | Sinoatrial node | | | | | | dysfunction (HCC) | | | | | | with symptomatic | | | | | | bradycardia | +--------+ + + + + documented as of this encounter Visit Diagnoses Not on filedocumented in this encounter"
--- OUTSIDE RECORDS SUMMARY | ~2020-04-15 | XMS | Encounter Summary ---
Demographics + + + | Address | [address] | | | [place] [address] | + + + | Home Phone [...] Providers + +------+ + | Care Director Writing Name | Role | Phone | + [...] CARDIOLOGY [address] | MD [address] [place] | Interrogation | | | | [place], | [place], | (Primary Dx); | | | | [place] [address] | [place] [id number] | Pacemaker; | | | | [phone] | [phone] | Sinoatrial node | | | | [...] | | | | | | [place] [address] | | | | | | [phone] | | | | | | | | +--------+ + + + + | 05/01/ | Procedure | Cardiology | | | | 2019 | visit | | | | +--------+ + + + + | 05/01/ | Office | Cardiology | Silvia, | | | 2019 | Visit | | [address] | | | | | | [place], | | | | | | [place] [address] | | | | | | [phone] | | | | | | | | +--------+ + + + + | 05/21/ | Implant | Cardiology | Daljit Singletary, | Remote Device | 2019 | Monitor | | MD Sim [facility] | Interrogation | | | | | [place], | (Primary Dx); | | | | | [place] [id number] | Pacemaker; | | | | | [phone] | Sinoatrial node | | | | [...]
--- OUTSIDE RECORDS SUMMARY | ~2020-04-15 | XMS | Encounter Summary ---
Demographics + + + | Address | [address] | | | [place] [address] | + + + | Home Phone [...] Providers + +------+ + | Care Microfilm Mounter Name | Role | Phone | [...] [address] | | | | | [place], | [place], | | | | | [place] [address] | [place] [address] | | | | | [phone] | [phone] | | | | | | | [...] W | | | | | | [place], | | | | | | [place] [address] | | | | | | [phone] | | | | | | | | +--------+ + + + + | 05/01/ | Procedure | Cardiology | | | | 2019 | visit | | | | +--------+ + + + + | 05/01/ | Office | Cardiology | Silvia, | | | 2019 | Visit | | [address] | | | | | | [place], | | | | | | [place] [address] | | | | | | [phone] | | | | | | | | +--------+ + + + + | 05/21/ | Implant | Cardiology | Daljit Singletary, | Remote Device | 2019 | Monitor | | MD [address] [place] | Interrogation | | | | | [place], | (Primary Dx); | | | | | [place] [address] | Pacemaker; | | | | | [phone] | Sinoatrial node | | | | [...] [address] | [place] | [phone] | | [facility] | | [address] | | | - [...]
--- OUTSIDE RECORDS SUMMARY | ~2020-04-15 | XMS | Encounter Summary ---
Demographics + + + | Address | [address] | | | [place] [address] | + + + | Home Phone [...] Providers + +------+ + | Care Music Box Mechanic Name | Role | Phone | [...] 2012 | | CARDIOLOGY [address] | STEAM CLEANING MACHINE OPERATOR [address] [place] | faxed) | | | | [place], | [place] [facility], [place] | | | | | [place] [address] | [address] | | | | | [phone] | | | +--------+ + + + [...] W | | | | | | [place], | | | | | | [place] [address] | | | | | | [phone] | | | | | | | | +--------+ + + + + | 05/01/ | Procedure | Cardiology | | | | 2019 | visit | | | | +--------+ + + + + | 05/01/ | Office | Cardiology | Silvia, | | | 2019 | Visit | | [address] | | | | | | [place], | | | | | | [place] [address] | | | | | | [phone] | | | | | | | | +--------+ + + + + | 05/21/ | Implant | Cardiology | Daljit Singletary, | Remote Device | | 2019 | Monitor | | [facility] | Interrogation | | | | | [place], | (Primary Dx); | | | | | [place] [address] | Pacemaker; | | | | | [phone] | Sinoatrial node | | | | | | dysfunction (HCC) | | | | | | with symptomatic | | | | | | bradycardia | +--------+ + + + + documented as of this encounter Visit Diagnoses Not on filedocumented in this encounter"
--- OUTSIDE RECORDS SUMMARY | ~2020-04-15 | XMS | Encounter Summary ---
Demographics + + + | Address | [address] | | | [place] [address] | + + + | Home Phone [...] Providers + +------+ + | Care Music Department Chair Name | Role | Phone | + +------+ + PCP | Unavailable | + +------+ + Encounter Details +--------+ + + + + | Date | Type | Department | Care Team | Description | +--------+ + + + + | 05/28/ | [facility] | [facility] | Evan Gandara MD | | | 2008 | Encounter | MED CTR LABORATORY | [address] [facility] | | | | | [address] [place] | [place] | | | | | [place] | [address] | | | | | [address] | | | | | | [phone] | | | +--------+ + + + [...] | | | | | | [place] [address] | | | | | | [phone] | | | | | | | [...] | | | | | | [place] [address] | | | | | | [phone] | | | | | | | | +--------+ + + + + | 05/21/ | Implant | Cardiology | Daljit Singletary, | Remote Device | 2019 | Monitor | | MD [address] [place] | Interrogation | | | | | [place], | (Primary Dx); | | | | | [place] [address] | Pacemaker; | | | | | [phone] | Sinoatrial node | | | | | | dysfunction (HCC) | | | | | | with symptomatic | | | | | | bradycardia | +--------+ + + + + documented as of this encounter Visit Diagnoses Not on filedocumented in this encounter"
--- OUTSIDE RECORDS SUMMARY | ~2020-04-15 | XMS | Encounter Summary ---
Demographics + + + | Address | [address] | | | [place] [address] | + + + | Home Phone [...] Team Providers + +------+ + | Care Linen Room Custodian Name | Role | Phone | [...] | 04/07/ | Office | PM SE IN UROLOGY | Matthew Uriarte | Left ureteral | | 2019 | Visit | [address] | MD Tawanna [address] | calculus (Primary | | | | [place], [place] | AVE [place], [place] | Dx); Kidney stones | | | | [address] | [address] | | | | | [phone] | | | +--------+---------+ + + + [...] April 13, 2019 at 7:45 AM at [facility]. Please report to the Surgery [facility] Procedure Center no later than 6:15 AM. REMEMBER: NOTHING TO EAT OR DRINK AFTER MIDNIGHT April 12, 2019. NO FISH OIL, ASPIRIN OR ASPIRIN PRODUCTS ONE WEEK PRIOR TO SURGERY. Tylenol and Advil are OK. You will need to get the following testing done prior to surgery: CBC, BMP YOU WILL NEED TO BRING A PHLEBOTOMIST PRN WITH YOU THE DAY OF SURGERY. Call us at [phone] with any questions. [] Pain management booklet [...] [employer] Peptic ulcer disease Premature ventricular contraction [facility] care 06/26/2013 LAST PSA:12/16/2010 RESULT:0.14 LAST COLONOSCOPY:02/05/2009 [...] LHC; Surgeon: Daljit Singletary MD; Location: [facility] CV LAB CARDIAC CATHERIZATION N/A 01/25/2019 Procedure: CV Cor Angio; Surgeon: Daljit Singletary MD; Location: [facility] CV LAB COLONOSCOPY N/A 12/24/2017 Procedure: COLONOSCOPY; Surgeon: Emmanuel Danile MD; Location: [facility] MEDICAL PROCEDURE UNIT COLONOSCOPY N/A 01/05/2019 [...] Location: [facility] MEDICAL PROCEDURE UNIT UPPER GASTROINTESTINAL ENDOSCOPY N/A 01/05/2019 Procedure: EGD; Surgeon: Emmanuel Daniel MD; Location: [facility] MEDICAL PROCEDURE UNIT VASECTOMY Family History: [...] 911, Disp: 100 ta blet, Rfl: 3 [place]-3 Fatty Acids (SALMON OIL-1000 PO), CAPS, one capsule by mouth daily twice daily , Disp: , Rfl: ondansetron (ZOFRAN ODT) 4 mg disintegrating tablet, Take 4 mg by mouth., Disp: , Rfl: ONE TOUCH DELICA LANCETS [facility] [place] Check [...] have not thoroughly proofread this note, and retirement administrator errors are very likely to occur. [...] W | | | | | | [place], | | | | | | [place] [address] | | | | | | [phone] | | | | | | | | +--------+ + + + + | 05/01/ | Procedure | Cardiology | | | | 2019 | visit | | | | +--------+ + + + + | 05/01/ | Office | Cardiology | Silvia, | | | 2019 | Visit | | [address] | | | | | | [place], | | | | | | [place] [address] | | | | | | [phone] | | | | | | | | +--------+ + + + + | 05/21/ | Implant | Cardiology | Daljit Singletary, | Remote Device | 2019 | Monitor | | MD [address] [place] | Interrogation | | | | | [place], | (Primary Dx); | | | | | [place] [address] | Pacemaker; | | | | | [phone] | Sinoatrial node | | | | [...]
--- OUTSIDE RECORDS SUMMARY | ~2020-04-15 | XMS | Encounter Summary ---
Demographics + + + | Address | [address] [place] [address] [address]O | | | [place] [address] | + + + | Home Phone [...] [place] | | | | | [address] | | + + + + + Care Team Providers + +------+ + | Care Chief Wellness Officer Name | Role | Phone | [...] 2 | | | | | | [place], [place] | [place], [place] | | | | | | [address] | [address] | | | | | | Phone: | Phone: | | | | | | [phone] | [phone] | | | | | | Fax: | Fax: | | | | | | [phone] | [phone] | +--------+--------+ + + + + Encounter Details +--------+---------+ + + + | Date | Type | Department | Care Team | Description | +--------+---------+ + + + | 09/28/ | Office | Digestive Health | Bridgette Rios, | Chronic diarrhea | | 2019 | Visit | [facility] at [facility] [address] | [address] | (Primary Dx); | | | | [address] | [place], [place] | Abdominal cramping; | | | | Mailcode: Slovan | [address] | Unintentional weight | | | | for Health and | [phone] | loss | | | | [facility] 2 | | | | | | [place], [place] | | | | | | [address] | | | | | | [phone] | | | +--------+---------+ + + + [...] some lab orders to [facility] 2. lump room supervisor the nortryptiline and take 1 tablet [...] different fr om the original. Gastroenterology Clinic [facility] ~ Initial Consultation / New Patient Evaluation [...] disease. CT scan done through [facility] November show ed mild diverticulosis without evidence [...] of Present Illness: Here with his from [place] for second opinion regarding severe abdominal cramps, isreal rrhea and weight loss following a GI illness contracted during a trip to [facility]. He reports that 2 years ago he was traveling in [facility] and he had some suspicious seafood. He develo ps profound bloody diarrhea with severe abdominal pain. He was hospitalized in [facility] and w as treated with [...] file Gets together: Not on file Attends alevism service: Not on file Active member of [...] Plan and Recommendations: 1. [facility] in [place] for stool studies as outlined above 2. If negative and symptoms persist, recommend capsule endoscopy (this could be completed b y local hide selector or he could return to [place] for this test) 3. Nortryptiline 25mg q HS with instruction to titrate to 50mg q HS after 2 weeks if tolera kevin Follow-Up: with local hide selector Counseling Time: I spent a total of 35 minutes with this patient, of which greater than 50 % of the time was spent in counseling. Specific issues that were discussed included a revie w of the disease, diagnostic tools that help in our management plans for the patient's chron ic diarrhea, abdominal cramping and weight loss and goals for treatment. Bridgette Rios MD Tax Manager Public Gastroenterology documented in this e ncounter Plan [...]
--- OUTSIDE RECORDS SUMMARY | ~2020-04-15 | XMS | Encounter Summary ---
Demographics + + + | Address | [address] | | | [place] [address] | + + + | Home Phone [...] Providers + +------+ + | Care Rice Farmer Name | Role | Phone | [...] | | | | [place], [place] | [phone] | | | | | [address] | | | | | | [phone] | | | +--------+ + + + [...] + + + +---------+ + + | [place]-3 Fatty | CAPS, one capsule by | [...] | | | | | | [place], | | | | | | [place] [address] | | | | | | [phone] | | | | | | | | +--------+ + + + + | 05/01/ | Procedure | Cardiology | | | | 2019 | visit | | | | +--------+ + + + + | 05/01/ | Office | Cardiology | Silvia, | | | 2019 | Visit | | [address] | | | | | | [place], | | | | | | [place] [address] | | | | | | [phone] | | | | | | | | +--------+ + + + + | 05/21/ | Implant | Cardiology | Daljit Singletary, | Remote Device | | 2019 | Monitor | | [address] [place] | Interrogation | | | | | [place], | (Primary Dx); | | | | | [place] [address] | Pacemaker; | | | | | [phone] | Sinoatrial node | | | | [...]
--- OUTSIDE RECORDS SUMMARY | ~2020-04-15 | XMS | Encounter Summary ---
Demographics + + + | Address | [address] | | | [place] [address] | + + + | Home Phone [...] Providers + +------+ + | Care Tire Balancer Name | Role | Phone | + [...] | Palpitations | [address] | | | | | Procedures | [address] | [address] [place] | | | | | ECHO | [place], | [place], [place] | | | | | Complete | [place] [address] | [address] | | | | | | Phone: | Phone: | | | | | | [phone] | [phone] | | | | | | Fax: | Fax: | | | | | | [phone] | [phone] | +--------+--------+ + + + + Encounter Details +--------+ + + + + | Date | Type | Department | Care Team | Description | +--------+ + + + + | 12/30/ | Hospital | [facility] | TimmyshaistateshaShaistatimmy, | Palpitations | | 2012 - | Encounter | MED CTR XRAY [address] | MD [address] | | | | | [address] [place] | [address] [place], | | | 01/01/ | | [place] [address] | [place] [address] | | | 2012 | | [phone] | [phone] | | | | | | | [...] | | | | | | [place] [address] | | | | | | [phone] | | | | | | | [...] | | | | | | [place] [address] | | | | | | [phone] | | | | | | | | +--------+ + + + + | 05/21/ | Implant | Cardiology | Daljit Singletary, | Remote Device | 2019 | Monitor | | MD [address] [place] | Interrogation | | | | | [place], | (Primary Dx); | | | | | [place] [address] | Pacemaker; | | | | | [phone] | Sinoatrial node | | | | [...] | [facility] Diagnostic Imaging | MCCLEARY | | Department [address] [facility] | [facility] | | [ rep ct street[address]] [ rep [facility] | | st zip] Signed | - IMAGING | | | | | Patient Name: MOE GAY | | | Physician: MIGUELINA : 1960 Age: 52 Sex: M Unit | | | #: [id number] Exam Date: 12/30/12 Location: | | | [facility] [place] #: [id number] Page: | | | %(RAD)RES..mtdd.print.filter("pg") of %(RAD) | | | RES..mtdd.print.filter("tpg") | | | | | | Accession Number: [id number] | | | E C H O C A R D I O G R A P H Y R E P O R T | | | HEIGHT: 76" WEIGHT: 270# | | | ENGINE CLEANER: JAMEEL REFERRING DR: TIMMY DRAKE DR: | [...] | | Transcribed Date/Time: 12/30/2012 16:34 Hand Salter: | | | <<Signature on File>> | | | Daljit | | | MD [facility] FASE01/02/13 0955 <Electronically signed by | | | Daljit Singletary MD, FAC, FACP, FASNanette, FASRAUL> Daljit | | | MD [employer] [facility] ADELINE 12/30/12 1608 Hand Salter: Jessica | | | Yocgtfpjorurg80/08/13 1634 Daljit Singletary MD [facility] | | | FASNanette | | + + + + + + + + | Performing | Address | City/State/Zipcode | Phone Number | | Organization | | | | + + + + + | [facility] | [address] | [place] | [phone] | | [facility] | | [address] | | | - IMAGING | | | | + + + + + documented in this encounter Visit Diagnoses + + | Diagnosis | + + | Palpitations | + + documented in this encounter
--- OUTSIDE RECORDS SUMMARY | ~2020-04-15 | XMS | Encounter Summary ---
Demographics + + + | Address | [address] | | | [place] [address] | + + + | Home Phone [...] + +------+ + | Care E Commerce Manager Name | Role | Phone | [...] 2019 | | CARDIOLOGY [address] | Manager Transport | | | | | [place], | | | | | | [place] [address] | | | | | | [phone] | | | +--------+ + + + [...] W | | | | | | [place], | | | | | | [place] [address] | | | | | | [phone] | | | | | | | | +--------+ + + + + | 05/01/ | Procedure | Cardiology | | | | 2019 | visit | | | | +--------+ + + + + | 05/01/ | Office | Cardiology | Silvia, | | | 2019 | Visit | | [address] | | | | | | [place], | | | | | | [place] [address] | | | | | | [phone] | | | | | | | | +--------+ + + + + | 05/21/ | Implant | Cardiology | Daljit Singletary, | Remote Device | | 2019 | Monitor | | MD [address] [facility] | Interrogation | | | | | [place], | (Primary Dx); | | | | | [place] [address] | Pacemaker; | | | | | [phone] | Sinoatrial node | | | | [...] | + +---------+ + + + | Albumin/Asndee | 2.0 (A) | 0.8 - 1.9 [...] | | | | | | | [place], | | | | | | External [...]
--- OUTSIDE RECORDS SUMMARY | ~2020-04-15 | XMS | Encounter Summary ---
Demographics + + + | Address | [address] | | | [place] [address] | + + + | Home Phone [...] Team Providers + +------+ + | Care Ager Tender Name | Role | Phone | + +------+ + | Kirk French MD | PCP | | + +------+ + Encounter Details +--------+ + + + + | Date | Type | Department | Care Team | Description | +--------+ + + + + | 08/10/ | Orders Only | [facility] KIM | [place], | Mixed hyperlipidemia | | 2016 | | MED CTR LABORATORY | [place] [address] | (Primary Dx) | | | | [address] [place] | [place], | | | | | [place] | [place] [address] | | | | | [address] | [phone] | | | | | [phone] | | | +--------+ + + + [...] W | | | | | | [place], | | | | | | [place] [address] | | | | | | [phone] | | | | | | | | +--------+ + + + + | 05/01/ | Procedure | Cardiology | | | | 2019 | visit | | | | +--------+ + + + + | 05/01/ | Office | Cardiology | Silvia, | | | 2019 | Visit | | [address] | | | | | | [place], | | | | | | [place] [address] | | | | | | [phone] | | | | | | | | +--------+ + + + + | 05/21/ | Implant | Cardiology | Daljit Singletary, | Remote Device | | 2020 | Monitor | | [address] [facility] | Interrogation | | | | | [place], | (Primary Dx); | | | | | [place] [address] | Pacemaker; | | | | | [phone] | Sinoatrial node | | | | [...]
--- OUTSIDE RECORDS SUMMARY | ~2020-04-15 | XMS | Encounter Summary ---
Demographics + + + | Address | [address] | | | [place] [address] | + + + | Home Phone [...] Team Providers + +------+ + | Care Moulder Operator Name | Role | Phone | [...] | | | | [place] | | [address] Phone: | | | | | CYSTO/URETER | | [phone] | | | | | O | | Fax: | | | | | W/LITHOTRIPS | | [phone] | | | | | Y &INDWELL [...] + + | 04/13/ | Hospital | [facility] | Matthew Uriarte | Preoperative | | 2019 | Encounter | MED CTR OR INTRA OP | Dahl, MD [address] | clearance (Primary | | | | [address] | [address] [place] | Dx); Left ureteral | | | | [place] | [address] | calculus; Kidney | | | | [address] | | stones | | | | [phone] | | | +--------+ + + + [...] Care Everywhere.Kidney Stones, Treating: Ureteroscopic Stone Removal ([place]enezuelan)Stents, Ureteral ([place]enezuelan)documented in this encounter Medications at Time of [...] | | | | | | | [place] coronary | | | | | | | artery of [place] | | | | | | | [...] | | | | | | [place] [address] | | | | | | [phone] | | | | | | | | +--------+ + + + + | 05/01/ | Procedure | Cardiology | | | | 2019 | visit | | | | +--------+ + + + + | 05/01/ | Office | Cardiology | Silvia, | | | 2019 | Visit | | [address] | | | | | | [place], | | | | | | [place] [address] | | | | | | [phone] | | | | | | | | +--------+ + + + + | 05/21/ | Implant | Cardiology | Daljit Singletary, | Remote Device | | 2019 | Monitor | | [address] | Interrogation | | | | | [place], | (Primary Dx); | | | | | [place] [address] | Pacemaker; | | | | | [phone] | Sinoatrial node | | | | [...] [facility] | | | | | | at:[phone]. | | | | + + + [...] test was developed and | | [facility] | | | | its performance | | - BKR | | | | characteristicsdetermine | | | | | | d by [facility]. It has not | [...] + | Performed at: 01 - Ar[facility] [address] [facility], | REFERENCE LAB | | [place], [place] [id number] Head Banquet Waitress: Yeny Rios MD, Phone: | ARSH CASTANON | | [phone] | | + + + + + + + + | Performing | Address | City/State/Zipcode | Phone Number | | Organization | | | | + + + + + | REFERENCE LAB | [address] | [place], [place] | [phone] | | ARSH CASTANON | [facility] | [address] | | + + + + + [...] + | [facility] | [address] | [place] | [phone] | | [facility] | | [address] | | | - LABORATORY | | [...] + | [facility] | [address] | [place] | [phone] | | [facility] | | [address] | | | - LABORATORY | | [...] + | [facility] | [address] | [place] | [phone] | | [facility] | | [address] | | | - LABORATORY | | [...] + | [facility] | [address] | [place] | [phone] | | [facility] | | [address] | | | - LABORATORY | | [...] | mL/min/1.73m2 | MICHELLE | | | COLOMBIAN | RATE,ESTIMATED | | MEDICAL | | | | mL/min/1.82s8Kpke than | | CENTER - | | [...] [address] | [place] | [phone] | | [facility] | | [address] | | | - LABORATORY | | [...] glucose < 50, | | | Starting [facility] 04/13/19 at 0634, | | | [...] | | | | | | | cnccvv-kxp-kehdm use of at least | | | [...] day), | | | First dose on [facility] 04/13/19 at | | | 2030, [...]
--- OUTSIDE RECORDS SUMMARY | ~2020-04-15 | XMS | Encounter Summary ---
Demographics + + + | Address | [address] | | | [place] [address] | + + + | Home Phone [...] Providers + +------+ + | Care Tool Supervisor Name | Role | Phone [...] 2019 | | GASTROENTEROLOGY | [address], [place] | | | | | [address] [place] | [address] [place], [place] | | | | | [address] [place], [place] | [address] | | | | | [address] | | | | | | [phone] | | | +--------+ + + + [...] | | | | | | [place] [address] | | | | | | [phone] | | | | | | | | +--------+ + + + + | 05/01/ | Procedure | Cardiology | | | | 2019 | visit | | | | +--------+ + + + + | 05/01/ | Office | Cardiology | Silvia, | | | 2019 | Visit | | [address] | | | | | | [place], | | | | | | [place] [address] | | | | | | [phone] | | | | | | | | +--------+ + + + + | 05/21/ | Implant | Cardiology | Daljit Singletary, | Remote Device | 2019 | Monitor | | MD [address] | Interrogation | | | | | [place], | (Primary Dx); | | | | | [place] [address] | Pacemaker; | | | | | [phone] | Sinoatrial node | | | | | | dysfunction (HCC) | | | | | | with symptomatic | | | | | | bradycardia | +--------+ + + + + documented as of this encounter Visit Diagnoses Not on filedocumented in this encounter"
--- OUTSIDE RECORDS SUMMARY | ~2020-04-15 | XMS | Encounter Summary ---
Demographics + + + | Address | [address] | | | [place] [address] | + + + | Home Phone [...] + +------+ + | Care Special Forces Officer Name | Role | Phone | [...] + | 06/24/ | Telephone | [facility] | Daljit Singletary, | Lab Order | | 2017 | | CARDIOLOGY [address] | MD [address] [place] | | | | | [place], | [place], | | | | | [place] [address] | [place] [address] | | | | | [phone] | [phone] | | | | | | | [...] | | | | | | [place] [address] | | | | | | [phone] | | | | | | | | +--------+ + + + + | 05/01/ | Procedure | Cardiology | | | | 2019 | visit | | | | +--------+ + + + + | 05/01/ | Office | Cardiology | Silvia, | | | 2019 | Visit | | PAR[place] [address] | | | | | | [place], | | | | | | [place] [address] | | | | | | [phone] | | | | | | | | +--------+ + + + + | 05/21/ | Implant | Cardiology | Daljit Singletary, | Remote Device | | 2019 | Monitor | | MD [address] [place] | Interrogation | | | | | [place], | (Primary Dx); | | | | | [place] [address] | Pacemaker; | | | | | [phone] | Sinoatrial node | | | | [...] 06/24/2018, Expires: | | | | | [place] coronary | 06/24/2019 | | | | [...] involving [place] coronary artery of [place] heart without | | angina pectoris - Primary | + + | Hyperlipidemia, mixed Mixed hyperlipidemia | + + documented in this encounter"
--- OUTSIDE RECORDS SUMMARY | ~2020-04-15 | XMS | Encounter Summary ---
Demographics + + + | Address | [address] | | | [place] [address] | + + + | Home Phone [...] Providers + +------+ + | Care Branch Office Administrator Name | Role | Phone | + +------+ + | Kirk French MD | PCP | | + +------+ + Encounter Details +--------+ + + + + | Date | Type | Department | Care Team | Description | +--------+ + + + + | 10/25/ | Hospital | [facility] | Kirk French | Chronic pain | | 2017 | Encounter | MED CTR ULTRASOUND | MD Brea Eva LORA | disorder; Stomach | | | | [address] [place] | [address] | ache; Obesity, | | | | [place], [place] | [place] [address] | unspecified | | | | [address] | [phone] | classification, | | | | [phone] | | unspecified obesity | | | [...] + + + +---------+ + + | [place]-3 Fatty | CAPS, one capsule by | [...] | | | | | | [place] [address] | | | | | | [phone] | | | | | | | | +--------+ + + + + | 05/01/ | Procedure | Cardiology | | | | 2019 | visit | | | | +--------+ + + + + | 05/01/ | Office | Cardiology | Silvia, | | | 2019 | Visit | | [address] [address] | | | | | | [place], | | | | | | [place] [address] | | | | | | [phone] | | | | | | | | +--------+ + + + + | 05/21/ | Implant | Cardiology | Daljit Singletary, | Remote Device | | 2019 | Monitor | | MD [address] [facility] | Interrogation | | | | | [place], | (Primary Dx); | | | | | [place] [address] | Pacemaker; | | | | | [phone] | Sinoatrial node | | | | [...]
--- OUTSIDE RECORDS SUMMARY | ~2020-04-15 | XMS | Encounter Summary ---
Demographics + + + | Address | [address] | | | [place] [address] | + + + | Home Phone [...] Providers + +------+ + | Care Application Architect Manager Name | Role | Phone | [...] | | [address] [place] | [place] [address] | | | | | [place] [address] | | | | | | [phone] | | | +--------+ + + + [...] W | | | | | | [place], | | | | | | [place] [address] | | | | | | [phone] | | | | | | | | +--------+ + + + + | 05/01/ | Procedure | Cardiology | | | | 2019 | visit | | | | +--------+ + + + + | 05/01/ | Office | Cardiology | Silvia, | | | 2019 | Visit | | PARISA [place] [address] | | | | | | [place], | | | | | | [place] [address] | | | | | | [phone] | | | | | | | | +--------+ + + + + | 05/21/ | Implant | Cardiology | Daljit Singletary, | Remote Device | | 2019 | Monitor | | MD [address] [facility] | Interrogation | | | | | [place], | (Primary Dx); | | | | | [place] [address] | Pacemaker; | | | | | [phone] | Sinoatrial node | | | | [...]
--- OUTSIDE RECORDS SUMMARY | ~2020-04-15 | XMS | Encounter Summary ---
Demographics + + + | Address | [address] | | | [place] [address] | + + + | Home Phone [...] + +------+ + | Care On Air Host Name | Role | Phone | [...] [address] | | | | | [place], | [place], | | | | | [place] [address] | [place] [address] | | | | | [phone] | [phone] | | | | | | | [...] | | | | | | [place] [address] | | | | | | [phone] | | | | | | | [...] | | | | | | [place] [address] | | | | | | [phone] | | | | | | | | +--------+ + + + + | 05/21/ | Implant | Cardiology | Daljit Singletary, | Remote Device | 2019 | Monitor | | MD [address] [place] | Interrogation | | | | | [place], | (Primary Dx); | | | | | [place] [address] | Pacemaker; | | | | | [phone] | Sinoatrial node | | | | [...] Resulting Agency Comment | + + | [facility] | + + + +---------+ [...] Resulting Agency Comment | + + | [facility] | + + + +---------+ + [...] Resulting Agency Comment | + + | [facility] | + + + +---------+ [...] Resulting Agency Comment | + + | [facility] | + + + +---------+ + [...] Resulting Agency Comment | + + | [facility] | + + + +---------+ + [...] Resulting Agency Comment | + + | [facility] | + + + +---------+ [...] Agency Comment | + + | [facility] | + + + +---------+ [...] Resulting Agency Comment | + + | [facility] | + + + +---------+ [...] Resulting Agency Comment | + + | [facility] | + + + +---------+ [...] Resulting Agency Comment | + + | [facility] | + + + +---------+ [...] Resulting Agency Comment | + + | [facility] | + + + +---------+ [...] Resulting Agency Comment | + + | [facility] | + + + +---------+ [...] Resulting Agency Comment | + + | [facility] | + + + +---------+ + [...] Agency Comment | + + | [facility] | + + + +---------+ [...] Resulting Agency Comment | + + | [facility] | + + + +---------+ [...] Agency Comment | + + | [facility] | + + + +---------+ + [...] Resulting Agency Comment | + + | [facility] | + + + +---------+ [...] Resulting Agency Comment | + + | [facility] | + + + +---------+ + [...] Resulting Agency Comment | + + | [facility] | + + + +---------+ [...]
--- OUTSIDE RECORDS SUMMARY | ~2020-04-15 | XMS | Encounter Summary ---
Demographics + + + | Address | [address] | | | [place] [address] | + + + | Home Phone [...] Team Providers + +------+ + | Care Booking Prizer Name | Role | Phone | + +------+ + | Kirk French MD | PCP | | + +------+ + Encounter Details +--------+ + + + + | Date | Type | Department | Care Team | Description | +--------+ + + + + | 11/16/ | Hospital | [facility] | Kirk French | Aneurysm (HCC) | | 2017 | Encounter | MED CTR ULTRASOUND | D, MD [address] | | | | | [address] [place] | [address] | | | | | [place], [place] | [place] [address] | | | | | [address] | [phone] | | | | | [phone] | | | | | | | [...] + + + +---------+ + + | [place]-3 Fatty | CAPS, one capsule by | [...] W | | | | | | [place], | | | | | | [place] [address] | | | | | | [phone] | | | | | | | | +--------+ + + + + | 05/01/ | Procedure | Cardiology | | | | 2019 | visit | | | | +--------+ + + + + | 05/01/ | Office | Cardiology | Silvia, | | | 2019 | Visit | | PAR[place] W | | | | | | [place], | | | | | | [place] [address] | | | | | | [phone] | | | | | | | | +--------+ + + + + | 05/21/ | Implant | Cardiology | Daljit Singletary, | Remote Device | | 2020 | Monitor | | [facility] | Interrogation | | | | | [place], | (Primary Dx); | | | | | [place] [address] | Pacemaker; | | | | | [phone] | Sinoatrial node | | | | [...] Screening | Imaging | Routin | Aneurysm ([facility]) | 1 Occurrences | | | | e | | starting 11/16/2017 | | | | | | until 11/16/2017 | + +---------+--------+ + + documented as of this encounter Visit Diagnoses + + | Diagnosis | + + | Aneurysm (HCC) Aneurysm of unspecified site | + + documented in this encounter"
--- OUTSIDE RECORDS SUMMARY | ~2020-04-15 | XMS | Encounter Summary ---
Demographics + + + | Address | [address] | | | [place] [address] | + + + | Home Phone [...] Providers + +------+ + | Care Microsoft Dynamics Consultant Name | Role | Phone | + +------+ + PCP | Unavailable | + +------+ + Encounter Details +--------+ + + + + | Date | Type | Department | Care Team | Description | +--------+ + + + + | 04/28/ | [facility] | [facility] | Jona[place]an, | | | 2008 | Encounter | MED CTR EMERGENCY | Martell Cr MD [address] | | | | | CENTER [address] | [place] | | | | | [place] | [place] [address] | | | | | [address] | [phone] | | | | | [phone] | | | +--------+ + + + [...] W | | | | | | [place], | | | | | | [place] [address] | | | | | | [phone] | | | | | | | | +--------+ + + + + | 05/01/ | Procedure | Cardiology | | | | 2019 | visit | | | | +--------+ + + + + | 05/01/ | Office | Cardiology | Silvia | | | 2019 | Visit | | PARISA [place] [address] | | | | | | [place], | | | | | | [place] [address] | | | | | | [phone] | | | | | | | | +--------+ + + + + | 05/21/ | Implant | Cardiology | Daljit Singletary, | Remote Device | 2019 | Monitor | | MD [address] [place] | Interrogation | | | | | [place], | (Primary Dx); | | | | | [place] [address] | Pacemaker; | | | | | [phone] | Sinoatrial node | | | | | | dysfunction (HCC) | | | | | | with symptomatic | | | | | | bradycardia | +--------+ + + + + documented as of this encounter Visit Diagnoses Not on filedocumented in this encounter"
--- OUTSIDE RECORDS SUMMARY | ~2020-04-15 | XMS | Encounter Summary ---
Demographics + + + | Address | [address] | | | [place] [address] | + + + | Home Phone [...] + +------+ + | Care Electrical Engineering Designer Name | Role | Phone [...] | (Fax) | | | | | [address] | | | | | | [phone] | | | +--------+ + + + [...] | | | | | | [place] [address] | | | | | | [phone] | | | | | | | | +--------+ + + + + | 05/01/ | Procedure | Cardiology | | | | 2019 | visit | | | | +--------+ + + + + | 05/01/ | Office | Cardiology | Silvia, | | | 2019 | Visit | | PARISA [place] [address] | | | | | | [place], | | | | | | [place] [address] | | | | | | [phone] | | | | | | | | +--------+ + + + + | 05/21/ | Implant | Cardiology | Daljit Singletary, | Remote Device | | 2019 | Monitor | | [address] | Interrogation | | | | | [place], | (Primary Dx); | | | | | [place] [address] | Pacemaker; | | | | | [phone] | Sinoatrial node | | | | | | dysfunction (HCC) | | | | | | with symptomatic | | | | | | bradycardia | +--------+ + + + + documented as of this encounter Visit Diagnoses Not on filedocumented in this encounter"
--- OUTSIDE RECORDS SUMMARY | ~2020-04-15 | XMS | Encounter Summary ---
Demographics + + + | Address | [address] | | | [place] [address] | + + + | Home Phone [...] Providers + +------+ + | Care Bingo Caller Name | Role | Phone | + +------+ + PCP | Unavailable | + +------+ + Encounter Details +--------+ + + + + | Date | Type | Department | Care Team | Description | +--------+ + + + + | 12/16/ | [facility] | [facility] | Naresh Mckeon | | | 2010 | Encounter | MED CTR SLEEP | MD Chaya [address] | | | | | CENTER [address] | [place] | | | | | [place] | [place] [address] | | | | | [address] | [phone] | | | | | [phone] | | | +--------+ + + + [...] W | | | | | | [place], | | | | | | [place] [address] | | | | | | [phone] | | | | | | | | +--------+ + + + + | 05/01/ | Procedure | Cardiology | | | | 2019 | visit | | | | +--------+ + + + + | 05/01/ | Office | Cardiology | Silvia | | | 2019 | Visit | | [address] | | | | | | [place], | | | | | | [place] [address] | | | | | | [phone] | | | | | | | | +--------+ + + + + | 05/21/ | Implant | Cardiology | Daljit Singletary, | Remote Device | 2019 | Monitor | | MD [address] [place] | Interrogation | | | | | [place], | (Primary Dx); | | | | | [place] [address] | Pacemaker; | | | | | [phone] | Sinoatrial node | | | | | | dysfunction (HCC) | | | | | | with symptomatic | | | | | | bradycardia | +--------+ + + + + documented as of this encounter Visit Diagnoses Not on filedocumented in this encounter"
--- OUTSIDE RECORDS SUMMARY | ~2020-04-15 | XMS | Encounter Summary ---
Demographics + + + | Address | [address] | | | [place] [address] | + + + | Home Phone [...] Providers + +------+ + | Care Land Checker Name | Role | Phone | [...] | [place] | [place] | | | | | [address] | [address] | | | | | [phone] | | | +--------+ + + + [...] | | | | | | [place] [address] | | | | | | [phone] | | | | | | | | +--------+ + + + + | 05/01/ | Procedure | Cardiology | | | | 2019 | visit | | | | +--------+ + + + + | 05/01/ | Office | Cardiology | Silvia, | | | 2019 | Visit | | PARISA Vernon [address] | | | | | | [place], | | | | | | [place] [address] | | | | | | [phone] | | | | | | | | +--------+ + + + + | 05/21/ | Implant | Cardiology | Daljit Singletary, | Remote Device | | 2019 | Monitor | | [facility] | Interrogation | | | | | [place], | (Primary Dx); | | | | | [place] [address] | Pacemaker; | | | | | [phone] | Sinoatrial node | | | | | | dysfunction (HCC) | | | | | | with symptomatic | | | | | | bradycardia | +--------+ + + + + documented as of this encounter Visit Diagnoses Not on filedocumented in this encounter"
--- OUTSIDE RECORDS SUMMARY | ~2020-04-15 | XMS | Encounter Summary ---
Demographics + + + | Address | [address] | | | [place] [address] | + + + | Home Phone [...] Providers + +------+ + | Care Mixer Blender Name | Role | Phone | [...] + | 01/02/ | Telephone | [facility] | Daljit Singletary, | Other (chest pain) | | 2018 | | CARDIOLOGY [address] | MD [address] [place] | | | | | [place], | [place], | | | | | [place] [address] | [place] [address] | | | | | [phone] | [phone] | | | | | | | [...] | | | | | | [place] [address] | | | | | | [phone] | | | | | | | [...] | | | | | | [place] [address] | | | | | | [phone] | | | | | | | | +--------+ + + + + | 05/21/ | Implant | Cardiology | Daljit Singletary, | Remote Device | | 2019 | Monitor | | [address] | Interrogation | | | | | [address] [place], | (Primary Dx); | | | | | [place] [address] | Pacemaker; | | | | | [phone] | Sinoatrial node | | | | | | dysfunction ([facility]) | | | | | | with symptomatic | | | | | | bradycardia | +--------+ + + + + documented as of this encounter Visit Diagnoses Not on filedocumented in this encounter"
--- OUTSIDE RECORDS SUMMARY | ~2020-04-15 | XMS | Encounter Summary ---
Demographics + + + | Address | [address] | | | [place] [address] | + + + | Home Phone [...] Team Providers + +------+ + | Care Journalists And Other Writers Name | Role | Phone | + [...] | RN | | | | | [place], | | | | | | [place] [address] | | | | | | [phone] | | | +--------+ + + + [...] W | | | | | | [place], | | | | | | [place] [address] | | | | | | [phone] | | | | | | | | +--------+ + + + + | 05/01/ | Procedure | Cardiology | | | | 2019 | visit | | | | +--------+ + + + + | 05/01/ | Office | Cardiology | Silvia | | | 2019 | Visit | | [address] | | | | | | [place], | | | | | | [place] [address] | | | | | | [phone] | | | | | | | | +--------+ + + + + | 05/21/ | Implant | Cardiology | Daljit Singletary, | Remote Device | | 2019 | Monitor | | MD Sim [address] | Interrogation | | | | | [place], | (Primary Dx); | | | | | [place] [address] | Pacemaker; | | | | | [phone] | Sinoatrial node | | | | | | dysfunction (HCC) | | | | | | with symptomatic | | | | | | bradycardia | +--------+ + + + + documented as of this encounter Visit Diagnoses Not on filedocumented in this encounter"
--- OUTSIDE RECORDS SUMMARY | ~2020-04-15 | XMS | Encounter Summary ---
Demographics + + + | Address | [address] | | | [place] [address] | + + + | Home Phone [...] Team Providers + +------+ + | Care Ultra Sound Technician Name | Role | Phone | [...] W | DISCLOSURE) | | | | [place], | [place], | | | | | [place] [address] | [place] [address] | | | | | [phone] | [phone] | | | | | | | [...] | | | | | | [place] [address] | | | | | | [phone] | | | | | | | [...] | | | | | | [place] [address] | | | | | | [phone] | | | | | | | | +--------+ + + + + | 05/21/ | Implant | Cardiology | Daljit Singletary, | Remote Device | | 2019 | Monitor | | [address] [facility] | Interrogation | | | | | [place], | (Primary Dx); | | | | | [place] [address] | Pacemaker; | | | | | [phone] | Sinoatrial node | | | | | | dysfunction (HCC) | | | | | | with symptomatic | | | | | | bradycardia | +--------+ + + + + documented as of this encounter Visit Diagnoses Not on filedocumented in this encounter"
--- OUTSIDE RECORDS SUMMARY | ~2020-04-15 | XMS | Encounter Summary ---
Demographics + + + | Address | [address] | | | [place] [address] | + + + | Home Phone [...] Providers + +------+ + | Care Nurse Clinical Name | Role | Phone | [...] [address] | | | | | [place], | [place], | | | | | [place] [address] | [place] [address] | | | | | [phone] | [phone] | | | | | | | [...] | | | | | | [place] [address] | | | | | | [phone] | | | | | | | [...] | | | | | | [place] [address] | | | | | | [phone] | | | | | | | | +--------+ + + + + | 05/21/ | Implant | Cardiology | Daljit Singletary, | Remote Device | 2019 | Monitor | | MD [place] | Interrogation | | | | | [place], | (Primary Dx); | | | | | [place] [address] | Pacemaker; | | | | | [phone] | Sinoatrial node | | | | [...] Resulting Agency Comment | + + | [facility] | + + + +---------+ [...] Resulting Agency Comment | + + | [facility] | + + + +---------+ [...] Resulting Agency Comment | + + | [facility] | + + + +---------+ [...] Resulting Agency Comment | + + | [facility] | + + + +---------+ [...] Resulting Agency Comment | + + | [facility] | + + + +---------+ + [...] Resulting Agency Comment | + + | [facility] | + + + +---------+ [...] Agency Comment | + + | [facility] | + + + [...] Resulting Agency Comment | + + | [facility] | + + + [...] Resulting Agency Comment | + + | [facility] | + + + +---------+ [...] Resulting Agency Comment | + + | [facility] | + + + [...] Resulting Agency Comment | + + | [facility] | + + + [...] Resulting Agency Comment | + + | [facility] | + + + +---------+ [...] Resulting Agency Comment | + + | [facility] | + + + +---------+ + [...] Agency Comment | + + | [facility] | + + + [...] Resulting Agency Comment | + + | [facility] | + + + +---------+ [...] Agency Comment | + + | [facility] | + + + +---------+ [...] Resulting Agency Comment | + + | [facility] | + + + +---------+ [...] Resulting Agency Comment | + + | [facility] | + + + +---------+ [...] Resulting Agency Comment | + + | [facility] | + + + +---------+ [...]
--- OUTSIDE RECORDS SUMMARY | ~2020-04-15 | XMS | Encounter Summary ---
Demographics + + + | Address | [address] | | | [place] [address] | + + + | Home Phone [...] + + + + | 01/15/ | [facility] | [facility] | Emmanuel Daniel MD | | | 1995 | Encounter | MED CTR GENERIC OP | [address] | | | | | CONV DEPT [address] | [address] | | | | | [place], | [address] | | | | | [place] [address] | | | | | | [phone] | | | +--------+ + + + [...] W | | | | | | [place], | | | | | | [place] [address] | | | | | | [phone] | | | | | | | | +--------+ + + + + | 05/01/ | Procedure | Cardiology | | | | 2019 | visit | | | | +--------+ + + + + | 05/01/ | Office | Cardiology | Silvia, | | | 2019 | Visit | | PARISA Vernon [address] | | | | | | [place], | | | | | | [place] [address] | | | | | | [phone] | | | | | | | | +--------+ + + + + | 05/21/ | Implant | Cardiology | Daljit Singletary, | Remote Device | 2019 | Monitor | | [address] [place] | Interrogation | | | | | [place], | (Primary Dx); | | | | | [place] [address] | Pacemaker; | | | | | [phone] | Sinoatrial node | | | | | | dysfunction (HCC) | | | | | | with symptomatic | | | | | | bradycardia | +--------+ + + + + documented as of this encounter Visit Diagnoses Not on filedocumented in this encounter"
--- OUTSIDE RECORDS SUMMARY | ~2020-04-15 | XMS | Encounter Summary ---
Demographics + + + | Address | [address] | | | [place] [address] | + + + | Home Phone [...] Team Providers + +------+ + | Care Etymology Teacher Name | Role | Phone | [...] [place] | | | | | | [address] | | | | | | [phone] | | | +--------+ + + + [...] | | | | | | [place] [address] | | | | | | [phone] | | | | | | | | +--------+ + + + + | 05/01/ | Procedure | Cardiology | | | | 2019 | visit | | | | +--------+ + + + + | 05/01/ | Office | Cardiology | Silvia, | | | 2019 | Visit | | [address]ISA [address] | | | | | | [place], | | | | | | [place] [address] | | | | | | [phone] | | | | | | | | +--------+ + + + + | 05/21/ | Implant | Cardiology | Daljit Snigletary, | Remote Device | 2019 | Monitor | | [address] | Interrogation | | | | | [place], | (Primary Dx); | | | | | [place] [address] | Pacemaker; | | | | | [phone] | Sinoatrial node | | | | | | dysfunction (HCC) | | | | | | with symptomatic | | | | | | bradycardia | +--------+ + + + + documented as of this encounter Visit Diagnoses Not on filedocumented in this encounter"
--- OUTSIDE RECORDS SUMMARY | ~2020-04-15 | XMS | Encounter Summary ---
Demographics + + + | Address | [address] | | | [place] [address] | + + + | Home Phone [...] [place] | | | | | [address] [place], [place] | [place] [address] | | | | | [address] | [phone] | | | | | [phone] | | | +--------+ + + + [...] | | | | | | [place] [address] | | | | | | [phone] | | | | | | | [...] | | | | | | [place] [address] | | | | | | [phone] | | | | | | | | +--------+ + + + + | 05/21/ | Implant | Cardiology | Daljit Singletary, | Remote Device | 2019 | Monitor | | [facility] | Interrogation | | | | | [place], | (Primary Dx); | | | | | [place] [address] | Pacemaker; | | | | | [phone] | Sinoatrial node | | | | | | dysfunction (HCC) | | | | | | with symptomatic | | | | | | bradycardia | +--------+ + + + + documented as of this encounter Visit Diagnoses Not on filedocumented in this encounter"
--- OUTSIDE RECORDS SUMMARY | ~2020-04-15 | XMS | Encounter Summary ---
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 [address] [place] | Dx) | | | | [place], | [place], [place] | | | | | [place] [address] | [address] | | | | | [phone] | | | +--------+---------+ + + + [...] Sanchez Date: December 21, 2012 : 1960 Human Resource Statistician: PARISA Velazquez Device Brick Veneer Maker: Medtronic Sense (mV) Impedance (?) Capture (V) Capture (ms) A Lead 4-5.6 423 1.5 0.09 RV Lead >31.36 539 2.0 0.09 LV Lead Battery Impedance (?): 301 Battery Voltage (V): 2.8 NV Interval (ms): 140 AR Interval (ms): 210 VA Conduction: Mode Switch Events: N/A % of time: -GRAVES REGISTRATION SPECIALIST: 0.6 AP-GRAVES REGISTRATION SPECIALIST: 1.3 -VS: 23.9 AP-VS: 74.2 GRAVES REGISTRATION SPECIALIST: Magnetic Rate: 85 LINDA: 65 LEAH: [...] | | | | | | [place] [address] | | | | | | [phone] | | | | | | | | +--------+ + + + + | 05/01/ | Procedure | Cardiology | | | | 2019 | visit | | | | +--------+ + + + + | 05/01/ | Office | Cardiology | Silvia, | | | 2019 | Visit | | PARISA Vernon [address] | | | | | | [place], | | | | | | [place] [address] | | | | | | [phone] | | | | | | | | +--------+ + + + + | 05/21/ | Implant | Cardiology | Daljit Singletary, | Remote Device | 2019 | Monitor | | [address] [place] | Interrogation | | | | | [place], | (Primary Dx); | | | | | [place] [address] | Pacemaker; | | | | | [phone] | Sinoatrial node | | | | [...]
--- OUTSIDE RECORDS SUMMARY | ~2020-04-15 | XMS | Encounter Summary ---
Demographics + + + | Address | [address] | | | [place] [address] | + + + | Home Phone [...] Team Providers + +------+ + | Care Hazardous Materials Handler Name | Role | Phone | [...] [address] | | | | | [place], | [place], | | | | | [place] [address] | [place] [address] | | | | | [phone] | [phone] | | | | | | | [...] | | | | | | [place] [address] | | | | | | [phone] | | | | | | | [...] | | | | | | [place] [address] | | | | | | [phone] | | | | | | | | +--------+ + + + + | 05/21/ | Implant | Cardiology | Daljit Singletary, | Remote Device | 2019 | Monitor | | [address] [place] | Interrogation | | | | | [place], | (Primary Dx); | | | | | [place] [address] | Pacemaker; | | | | | [phone] | Sinoatrial node | | | | | | dysfunction (HCC) | | | | | | with symptomatic | | | | | | bradycardia | +--------+ + + + + documented as of this encounter Visit Diagnoses Not on filedocumented in this encounter"
--- OUTSIDE RECORDS SUMMARY | ~2020-04-15 | XMS | Encounter Summary ---
Demographics + + + | Address | [address] | | | [place] [address] | + + + | Home Phone [...] [address] | | | | | [address] | [place] | | | | | [phone] | [address] | | | | | | | [...] | | | | | | [place] [address] | | | | | | [phone] | | | | | | | [...] | | | | | | [place] [address] | | | | | | [phone] | | | | | | | | +--------+ + + + + | 05/21/ | Implant | Cardiology | Daljit Singletary, | Remote Device | 2019 | Monitor | | MD [address] | Interrogation | | | | | [place], | (Primary Dx); | | | | | [place] [address] | Pacemaker; | | | | | [phone] | Sinoatrial node | | | | | | dysfunction (HCC) | | | | | | with symptomatic | | | | | | bradycardia | +--------+ + + + + documented as of this encounter Visit Diagnoses Not on filedocumented in this encounter"
--- OUTSIDE RECORDS SUMMARY | ~2020-04-15 | XMS | Encounter Summary ---
Demographics + + + | Address | [address] | | | [place] [address] | + + + | Home Phone [...] + +------+ + | Care Lay Out Drafter Name | Role | Phone | + +------+ + | Kirk French MD | PCP | | + +------+ + Encounter Details +--------+---------+ + + + | Date | Type | Department | Care Team | Description | +--------+---------+ + + + | 12/24/ | Surgery | [facility] | Emmanuel Daniel MD | EGD | | 2018 | | MED CTR MP INTRA OP | [address], [place] | | | | | [address] | [address] [place], [place] | | | | | [place], [place] | [address] | | | | | [address] | | | | | | [phone] | | | +--------+---------+ + + + [...] + + + +---------+ + + | Hermann-3 Fatty | CAPS, one capsule by | [...] W | | | | | | [address] [place], | | | | | | [place] [address] | | | | | | [phone] | | | | | | | | +--------+ + + + + | 05/01/ | Procedure | Cardiology | | | | 2019 | visit | | | | +--------+ + + + + | 05/01/ | Office | Cardiology | Silvia, | | | 2019 | Visit | | PARISA [address] W | | | | | | [address] [place], | | | | | | [place] [address] | | | | | | [phone] | | | | | | | | +--------+ + + + + | 05/21/ | Implant | Cardiology | Daljit Singletary, | Remote Device | | 2019 | Monitor | | MD [address] | Interrogation | | | | | [place], | (Primary Dx); | | | | | [place] [address] | Pacemaker; | | | | | [phone] | Sinoatrial node | | | | [...] + + | Performed at: 01 - [facility] [address], | REFERENCE LAB | | [place], [place] [id number] Monkey Keeper: William Andrew MD, Phone: | [facility] | | [phone] | | + + + + + + + + | Performing | Address | City/State/Zipcode | Phone Number | | Organization | | | | + + + + + | REFERENCE LAB | [address] | [place], [place] | [phone] | | [facility] | [place] | [address] | | + + + + + [...] [address] | [place] | [phone] | | [facility] | | [address] | | | - LABORATORY | | [...] ST. | [address] | [place] | [phone] | | [facility] | | [address] | | | - LABORATORY | | [...] + | [address] | [address] | [place] | [phone] | | [facility] | | [address] | | | - LABORATORY | | [...] + + | Performed at: 01 - [facility] [address], | REFERENCE LAB | | [place], [place] [id number] Monkey Keeper: William Andrew MD, Phone: | [facility] | | [phone] | | + + + + + + + + | Performing | Address | City/State/Zipcode | Phone Number | | Organization | | | | + + + + + | REFERENCE LAB | [address] | [place], [place] | [phone] | | [facility] | Drive [facility] | [address] | | + + + + + [...] [address] | [place] | [phone] | | [facility] | | [address] | | | - LABORATORY | | [...] [address] | [place] | [phone] | | [facility] | | [address] | | | - LABORATORY | | [...] | [address] | [place] | [phone] | | [facility] | | [address] | | | - LABORATORY | | [...] [address] | [place] | [phone] | | [facility] | | [address] | | | - LABORATORY | | [...] + | [address] | [address] | [place] | [phone] | | [facility] | | [address] | | | - LABORATORY | | | | + + + + + EGD (12/24/2017 1:19 PM PST) + + | Specimen | + + | | + + + + -+ | Narrative | Performed At | + + -+ | | [facility] | | GastroenterologyPatient Name: Moe SanchezProcedure Date: 12/24/2017 | PROVATION | | 1:19 PMMRN: [id number] #: [id number] of : | | | 1960dmit Type: AmbulatoryAge: 57[facility]Gender: MaleNote | | | Status: FinalizedAttending MD: Emmanuel Daniel , MDProcedure: | | | Upper GI endoscopyIndications: Diarrhea, Weight | | | lossProviders: Emmanuel Daniel MD, Maria Isabel Morris RN, | | | Kim Hicks, Tax Compliance Representative, Jarett | | | Sapna Barakat MD [...] PMScope Out: 1:31:13 PM | | | [facility], [address] [place] [address] | | | [place] [address] | | | - Discharge patient to [...] |Scope Out: 1:31:13 PM | | | [facility], [address] [place] [address] | | | [address] | | + + -+ + +---------+ [...] 12/24/2017 | [facility] | | 1:17 PMMRN: [id number] #: [id number] of : | | | 9Admit Type: AmbulatoryAge: 57Room: [facility] 01Gender: MaleNote | | | Status: FinalizedAttending MD: Emmanuel Daniel [facility]: | | | ColonoscopyIndications: Clinically significant diarrhea of | | | unexplained originProviders: Emmanuel Daniel MD, Maria Isabel | | | Arturo, RN, Kim Hicks, Tax Compliance Representative, | | | Jarett Barakat MD (Anesthesia [...] PM [facility] | | | [facility], [address] [place] [address] | | | [phone] | | | - Await pathology results. [...] |Scope Out: 1:48:57 PM | | | [facility], [facility] [place], [place] | | | [address] | | + + -+ + +---------+ [...] with focal adenomatous change. CLR:[facility]:C2NR | | | GROSS DESCRIPTION: Received [...] in (C1). D. Received in formalin labeled "Meo | | | Laura E. ASC" and labeled "D. ascending colon bx" on the | | | requisition are nine pink-lin tissue fragments measuring from 0.15-0.5 | | | cm, submitted, all in (D1). ka:CLR:[facility] ADDITIONAL NOTES: | | | Immunohistochemical studies were performed on this case with the | | | appropriate positive controls that react as expected. This test was | | | developed and its performance characteristics determined by [facility] | | | [facility]. It has not been cleared or approved by the U.S. Food | | | and Drug Administration. The FDA has determined that such clearance | | | or approval is not necessary. This test is used for clinical | | | purposes. It should not be regarded as investigational or for | | | research. [facility] is certified under the Clinical | | | Laboratory Improvement Amendments of 1988 (CLIA) as qualified to | | | perform high complexity clinical laboratory testing. This assay | | | has not been validated for specimens that have been decalcified. | | | PERFORMING LABORATORY: Tissue processing and slide preparation were | | | performed by [facility], [address], [facility] | | | [place] [address] (Turbine Inspector: Evan Frausto M.D. CLIA#: | | | [id number]). Professional interpretation was performed by [facility] | | | [facility], [address], [place] [address] | | | (Turbine Inspector: Evan Frausto M.D.; CLIA#: [id number]). | | | Diagnostician: Rafael Bales MD [...]
--- OUTSIDE RECORDS SUMMARY | ~2020-04-15 | XMS | Encounter Summary ---
Demographics + + + | Address | [address] | | | [place] [address] | + + + | Home Phone [...] + +------+ + | Care Hand Tube Winder Name | Role | Phone | [...] W | reprogramming/check | | | | [place], | [address] [place] | DO NOT DELETE | | | | [place] [address] | [place] [address] | (Primary Dx); | | | | [phone] | [phone] | Pacemaker - | | | | [...] | | | | | | [place] [address] | | | | | | [phone] | | | | | | | [...] | | | | | | [place] [address] | | | | | | [phone] | | | | | | | | +--------+ + + + + | 05/21/ | Implant | Cardiology | Daljit Singletary, | Remote Device | | 2019 | Monitor | | [address] [facility] | Interrogation | | | | | [place], | (Primary Dx); | | | | | [place] [address] | Pacemaker; | | | | | [phone] | Sinoatrial node | | | | [...]
--- OUTSIDE RECORDS SUMMARY | ~2020-04-15 | XMS | Encounter Summary ---
Demographics + + + | Address | [address] | | | [place] [address] | + + + | Home Phone [...] Providers + +------+ + | Care Russian Teacher Name | Role | Phone | + +------+ + PCP | Unavailable | + +------+ + Encounter Details +--------+ + + + + | Date | Type | Department | Care Team | Description | +--------+ + + + + | 10/29/ | Hospital | [facility] | Pia Akhtar | | | 2003 | Encounter | CONVERSION DEP [address] | MD [address] | | | | | [address] | [address] | | | | | [place] | [place] [address] | | | | | [address] | [phone] | | | | | [phone] | | | +--------+ + + + [...] | | | | | | [place] [address] | | | | | | [phone] | | | | | | | [...] | | | | | | [place] [address] | | | | | | [phone] | | | | | | | | +--------+ + + + + | 05/21/ | Implant | Cardiology | Daljit Singletary, | Remote Device | 2019 | Monitor | | MD Sim [place] | Interrogation | | | | | [facility], | (Primary Dx); | | | | | [place] [address] | Pacemaker; | | | | | [phone] | Sinoatrial node | | | | | | dysfunction (HCC) | | | | | | with symptomatic | | | | | | bradycardia | +--------+ + + + + documented as of this encounter Visit Diagnoses Not on filedocumented in this encounter"
--- OUTSIDE RECORDS SUMMARY | ~2020-04-15 | XMS | Encounter Summary ---
Demographics + + + | Address | [address] [place] [address] [address] | | | [place] [address] | + + + | Home Phone [...] [place] | | | | | [address] | | + + + + + Care Team Providers + +------+ + | Care Clinical Technologist Name | Role | Phone | [...] | | | [address] | [place], [place] | | | | | Mailcode: Center | [address] | | | | | for Health and | [phone] | | | | | [facility], [facility] [address] | | | | | | [place], [place] | | | | | | [address] | | | | | | [phone] | | | +--------+ + + + [...]
--- OUTSIDE RECORDS SUMMARY | ~2020-04-15 | XMS | Encounter Summary ---
Demographics + + + | Address | [address] | | | [place] [address] | + + + | Home Phone [...] Providers + +------+ + | Care Fashion Buyer Name | Role | Phone | [...] + + | 09/05/ | Office | [facility] | Geri Angel, | SINUS BRADYCARDIA | | 2012 | Visit | CARDIOLOGY [address] | BRIDGE GAME DIRECTOR [address] | (Primary Dx); | | | | [place], | [place], [place] | Symptomatic PVCs; | | | | [place] [address] | [address] | Hypertension; | | | | [phone] | | Hyperlipidemia | +--------+---------+ + + [...] and/or ref er you to electrophysiology in [place]. 3. Return in 3 months, or sooner [...] he did not followup with electrophysiology in [place], so he has remained on diltiaze m [...] Family Status Relation Status Age Mother 62 [place] Father Alive Unknown health Brother Alive Sister [...] by mouth Ken y. 30 tablet 6 Lowell-3 Fatty Acids (SALMON OIL-1000 PO) Active CAPS, [...] Sanchez Date: September 05, 2013 : 1960 Liability Analyst: [place] Velazquez Device Insulation Nozzleman: Y-Klub Sense (mV) Impedance (?) Capture (V) Capture (ms) A Lead 4-5.6 417 1.5 0.12 RV Lead >31.36 533 2.0 0.09 LV Lead Battery Impedance (?): 452 Battery Voltage (V): 2.79 FL Interval (ms): 162 AR Interval (ms): 245 VA Conduction: Mode Switch Events: 1 % of time: <0.1 -DIRECTOR OF RESIDENTIAL SERVICES: <0.1% AP-DIRECTOR OF RESIDENTIAL SERVICES: 0.1% -VS: 22.7% AP-VS: 77.1% DIRECTOR OF RESIDENTIAL SERVICES: Magnetic Rate: 85 LINDA: 65 LEAH: Current [...] to go back in 3 days to [place] for an attempt of ablation under general [...] He is upgraded to class I of [place] [employer] functional class. There are no [...] he would like to see electrophysiology in [place] rather than [place] as he paulino s family there, if [...] made to ensure accuracy; however, inadvertent computerized build manager errors may be pre sent. Electronically [...] | | | | | | [place] [address] | | | | | | [phone] | | | | | | | | +--------+ + + + + | 05/01/ | Procedure | Cardiology | | | 2019 | visit | | | | +--------+ + + + + | 05/01/ | Office | Cardiology | [place], | | | 2019 | Visit | | PARISA [place] [address] | | | | | | [place], | | | | | | [place] [address] | | | | | | [phone] | | | | | | | | +--------+ + + + + | 05/21/ | Implant | Cardiology | Daljit Singletary, | Remote Device | | 2019 | Monitor | | [address] | Interrogation | | | | | [place], | (Primary Dx); | | | | | [place] [address] | Pacemaker; | | | | | [phone] | Sinoatrial node | | | | [...]
--- OUTSIDE RECORDS SUMMARY | ~2020-04-15 | XMS | Encounter Summary ---
Demographics + + + | Address | [address] | | | [place] [address] | + + + | Home Phone [...] Providers + +------+ + | Care Filling And Packing Supervisor Name | Role | Phone [...] + + | 01/05/ | Office | [facility] | Silvia, | Pacemaker - | | 2018 | Visit | CARDIOLOGY [address] | PAR[place] [address] | [employer] - [id number] | | | | [place], | [place], | [place]plant[place] | | | | [place] [address] | [place] [address] | 06/14/2009 (Primary | | | | [phone] | [phone] | Dx); Chest pain, | | | [...] involving | | | | | | [place] coronary | | | | | | artery of [place] | | | | | | [...] pain. He went to the ER in [place] because th e NTG didn't relieved the pain. He was diagnosed with bronchitis. Otherwise he has had no ot her symptoms. He has had a good energy level. He tries to stay active. He has joined a [employer] gym and trying to exercise more often. [...] by mouth every evening 90 tablet 0 [facility] Natural Products (OSTEO BI-FLEX/5-LOXIN ADVANCED PO) [...] 3RD DOSE, CALL 911 100 tablet 3 [place]-3 Fatty Acids (SALMON OIL-1000 PO) CAPS, one [...] 131 (A) 10/18/2017 I reviewed records from [facility] for office visit on 01/2017 [...] overload. 2. Non-critical Coronary artery disease involving [place] coronary a rtery of [place] heart without angina pectoris: A. Normal [...] to go back in 3 days to [place] for an attempt of ablation under general [...] a normal stable device function. Estimated remaining [facility] longevity is 3.5 years.. 5. Lightheadedness and [...] this chart may have been created with [employer] voice recognition software. Occasi onal wrong-word [...] | | | | | | [place] [address] | | | | | | [phone] | | | | | | | | +--------+ + + + + | 05/01/ | Procedure | Cardiology | | | | 2019 | visit | | | | +--------+ + + + + | 05/01/ | Office | Cardiology | Silvia, | | | 2019 | Visit | | PARISA Vernon [address] | | | | | | [place], | | | | | | [place] [address] | | | | | | [phone] | | | | | | | | +--------+ + + + + | 05/21/ | Implant | Cardiology | Sydni Singletary, | Remote Device | 2019 | Monitor | | [address] [place] | Interrogation | | | | | [place], | (Primary Dx); | | | | | [place] [address] | Pacemaker; | | | | | [phone] | Sinoatrial node | | | | [...] | | ([facility]) with | | | | | | symptomatic | | | | | | bradycardia | | | | | | Symptomatic PVCs | | | | | | Tachycardia | | | | | | Coronary artery | | | | | | disease involving | | | | | | [place] coronary | | | | | | artery of [place] | | | | | | [...] | | ([facility]) | | + +--------+ + + + [...] SYDNI | | | | | | ([id number]) on 01/06/2018 | | | | | [...]
--- OUTSIDE RECORDS SUMMARY | ~2020-04-15 | XMS | Encounter Summary ---
Demographics + + + | Address | [address] | | | [place] [address] | + + + | Home Phone [...] + +------+ + | Care Process Improvement Analyst Name | Role | Phone [...] + + | 03/22/ | Refill | [facility] | Kirk French | Medication Refill | | 2019 | | [facility] | MD Brea [address] | | | | | PRIMARY CARE [address] | [address] | | | | | [address] | [place] [address] | | | | | [place], [place] | [phone] | | | | | [address] | | | | | | [phone] | | | +--------+--------+ + + + [...] | | | | | | [place] [address] | | | | | | [phone] | | | | | | | | +--------+ + + + + | 05/01/ | Procedure | Cardiology | | | | 2019 | visit | | | | +--------+ + + + + | 05/01/ | Office | Cardiology | Silvia, | | | 2019 | Visit | | PARISA Vernon [address] | | | | | | [place], | | | | | | [place] [address] | | | | | | [phone] | | | | | | | | +--------+ + + + + | 05/21/ | Implant | Cardiology | Daljit Singletary, | Remote Device | | 2019 | Monitor | | [address] [facility] | Interrogation | | | | | [place], | (Primary Dx); | | | | | [place] [address] | Pacemaker; | | | | | [phone] | Sinoatrial node | | | | | | dysfunction (HCC) | | | | | | with symptomatic | | | | | | bradycardia | +--------+ + + + + documented as of this encounter Visit Diagnoses Not on filedocumented in this encounter"
--- OUTSIDE RECORDS SUMMARY | ~2020-04-15 | XMS | Encounter Summary ---
Demographics + + + | Address | [address] | | | [place] [address] | + + + | Home Phone [...] + +------+ + | Care Cash Applications Clerk Name | Role | Phone | [...] | CARDIOLOGY [address] | MD [address] [place] | | | | | [place], | [place], | | | | | [place] [address] | [place] [address] | | | | | [phone] | [phone] | | | | | | | [...] | | | | | | [place] [address] | | | | | | [phone] | | | | | | | | +--------+ + + + + | 05/01/ | Procedure | Cardiology | | | | 2019 | visit | | | | +--------+ + + + + | 05/01/ | Office | Cardiology | Silvia, | | | 2019 | Visit | | PARISA Vernon [address] | | | | | | [place], | | | | | | [place] [address] | | | | | | [phone] | | | | | | | | +--------+ + + + + | 05/21/ | Implant | Cardiology | Daljit Singletary, | Remote Device | 2019 | Monitor | | 401 [facility] | Interrogation | | | | | [place], | (Primary Dx); | | | | | [place] [address] | Pacemaker; | | | | | [phone] | Sinoatrial node | | | | | | dysfunction (HCC) | | | | | | with symptomatic | | | | | | bradycardia | +--------+ + + + + documented as of this encounter Visit Diagnoses Not on filedocumented in this encounter"
--- OUTSIDE RECORDS SUMMARY | ~2020-04-15 | XMS | Encounter Summary ---
Demographics + + + | Address | [address] | | | [place] [address] | + + + | Home Phone [...] Providers + +------+ + | Care Associate Sales Name | Role | Phone | [...] | [place] | [place] | | | | | [address] | [address] | | | | | [phone] | | | +--------+ + + + [...] | | | | | | [place] [address] | | | | | | [phone] | | | | | | | [...] | | | | | | [place] [address] | | | | | | [phone] | | | | | | | | +--------+ + + + + | 05/21/ | Implant | Cardiology | Daljit Singletary, | Remote Device | | 2019 | Monitor | | [facility] | Interrogation | | | | | [place], | (Primary Dx); | | | | | [place] [address] | Pacemaker; | | | | | [phone] | Sinoatrial node | | | | | | dysfunction (HCC) | | | | | | with symptomatic | | | | | | bradycardia | +--------+ + + + + documented as of this encounter Visit Diagnoses Not on filedocumented in this encounter"
--- OUTSIDE RECORDS SUMMARY | ~2020-04-15 | XMS | Encounter Summary ---
Demographics + + + | Address | [address] | | | [place] [address] | + + + | Home Phone [...] Team Providers + +------+ + | Care Electroencephalograph Technician Name | Role | Phone | [...] [place] | | | | | | [address] | | | | | | [phone] | | | +--------+ + + + [...] W | | | | | | [place], | | | | | | [place] [address] | | | | | | [phone] | | | | | | | | +--------+ + + + + | 05/01/ | Procedure | Cardiology | | | | 2019 | visit | | | | +--------+ + + + + | 05/01/ | Office | Cardiology | Silvia, | | | 2019 | Visit | | PARISA [address] | | | | | | [place], | | | | | | [place] [address] | | | | | | [phone] | | | | | | | | +--------+ + + + + | 05/21/ | Implant | Cardiology | Daljit Singletary, | Remote Device | | 2019 | Monitor | | [address] [facility] | Interrogation | | | | | [place], | (Primary Dx); | | | | | [place] [address] | Pacemaker; | | | | | [phone] | Sinoatrial node | | | | | | dysfunction (HCC) | | | | | | with symptomatic | | | | | | bradycardia | +--------+ + + + + documented as of this encounter Visit Diagnoses Not on filedocumented in this encounter"
--- OUTSIDE RECORDS SUMMARY | ~2020-04-15 | XMS | Encounter Summary ---
Demographics + + + | Address | [address] | | | [place] [address] | + + + | Home Phone [...] Providers + +------+ + | Care Police Manager Name | Role | Phone | + +------+ + PCP | Unavailable | + +------+ + Encounter Details +--------+ + + + + | Date | Type | Department | Care Team | Description | +--------+ + + + + | 02/28/ | [facility] | [facility] | Geri Angel, | | | 2011 | Encounter | MED CTR XRAY [address] | NITROCELLULOSE MAKER [address] [place] | | | | | [place] | St [place] | | | | | [place] [address] | [address] | | | | | [phone] | | | +--------+ + + + [...] | | | | | | [place] [address] | | | | | | [phone] | | | | | | | [...] | | | | | | [place] [address] | | | | | | [phone] | | | | | | | | +--------+ + + + + | 05/21/ | Implant | Cardiology | Daljit Singletary, | Remote Device | | 2019 | Monitor | | [address] [place] | Interrogation | | | | | [place], | (Primary Dx); | | | | | [place] [address] | Pacemaker; | | | | | [phone] | Sinoatrial node | | | | [...] [facility] Diagnostic Imaging Department | [facility] | | [address] [facility] | [facility] | | LEFT HEART CATHETERIZATION | [facility] | | REPORT 02/29/2012 HEMODYNAMICS: Aortic [...] was taken to | | | Cardiac Casting Plug Assembler. He was prepared and draped in the [...] Transcribed | | | Date/Time: 02/29/2012 09:09 Property And Casualty Insurance Agent: | | | <Electronically Signed by Daljit Singletary MD [facility]> 02/29/12 | | | 1002 | | + + + + + | Procedure Note | + + | Kalpesh Brown Conversion - 12/29/2013 5:04 PM [facility] | | Diagnostic Imaging Department | | [address] [facility] | | | | [...] patient was taken to Cardiac | | Casting Plug Assembler. He was prepared and draped in the [...] | Transcribed Date/Time: 02/29/2012 09:09 | | Property And Casualty Insurance Agent: | | <Electronically Signed by Daljit Singletary MD [facility]> 02/29/12 1002 | + + + [...]
--- OUTSIDE RECORDS SUMMARY | ~2020-04-15 | XMS | Encounter Summary ---
Demographics + + + | Address | [address] | | | [place] [address] | + + + | Home Phone [...] 2015 | | CARDIOLOGY [address] | [place] [address] | | | | | [place], | [place], [place] | | | | | [place] [address] | [address] | | | | | [phone] | | | +--------+--------+ + + + [...] | | | | | | [place] [address] | | | | | | [phone] | | | | | | | [...] | | | | | | [place] [address] | | | | | | [phone] | | | | | | | | +--------+ + + + + | 05/21/ | Implant | Cardiology | Daljit Singletary, | Remote Device | | 2019 | Monitor | | [address] [facility] | Interrogation | | | | | [place], | (Primary Dx); | | | | | [place] [address] | Pacemaker; | | | | | [phone] | Sinoatrial node | | | | | | dysfunction (HCC) | | | | | | with symptomatic | | | | | | bradycardia | +--------+ + + + + documented as of this encounter Visit Diagnoses Not on filedocumented in this encounter"
--- OUTSIDE RECORDS SUMMARY | ~2020-04-15 | XMS | Encounter Summary ---
Demographics + + + | Address | [address] | | | [place] [address] | + + + | Home Phone [...] Providers + +------+ + | Care Diesel Pile Hammer Operator Name | Role | [...] | Telephone | [facility] [place] | [place], | LABS | | 2019 | | CARDIOLOGY [address] | Janeen FABRIC LAY OUT WORKER [address] | | | | | [place], | [place], | | | | | [place] [address] | [place] [address] | | | | | [phone] | [phone] | | | | | | | [...] | | | | | | [place] [address] | | | | | | [phone] | | | | | | | | +--------+ + + + + | 05/01/ | Procedure | Cardiology | | | | 2020 | visit | | | | +--------+ + + + + | 05/01/ | Office | Cardiology | Silvia, | | | 2019 | Visit | | [address] | | | | | | [place], | | | | | | [place] [address] | | | | | | [phone] | | | | | | | | +--------+ + + + + | 05/21/ | Implant | Cardiology | Daljit Singletary, | Remote Device | | 2019 | Monitor | | [address] [place] | Interrogation | | | | | [place], | (Primary Dx); | | | | | [place] [address] | Pacemaker; | | | | | [phone] | Sinoatrial node | | | | [...]
--- OUTSIDE RECORDS SUMMARY | ~2020-04-15 | XMS | Encounter Summary ---
Demographics + + + | Address | [address] | | | [place] [address] | + + + | Home Phone [...] Providers + +------+ + | Care Sales Director Name | Role | Phone [...] | | | | [place], [place] | [phone] | | | | | [address] | | | | | | [phone] | | | +--------+ + + + [...] + + + +---------+ + + | [place]-3 Fatty | CAPS, one capsule by | [...] | | | | | | [place] [address] | | | | | | [phone] | | | | | | | | +--------+ + + + + | 05/01/ | Procedure | Cardiology | | | | 2019 | visit | | | | +--------+ + + + + | 05/01/ | Office | Cardiology | Silvia, | | | 2019 | Visit | | [address] | | | | | | [place], | | | | | | [place] [address] | | | | | | [phone] | | | | | | | | +--------+ + + + + | 05/21/ | Implant | Cardiology | Daljit Singletary, | Remote Device | 2019 | Monitor | | [address] [place] | Interrogation | | | | | [place], | (Primary Dx); | | | | | [place] [address] | Pacemaker; | | | | | [phone] | Sinoatrial node | | | | [...]
--- OUTSIDE RECORDS SUMMARY | ~2020-04-15 | XMS | Encounter Summary ---
Demographics + + + | Address | [address] | | | [place] [address] | + + + | Home Phone [...] Team Providers + +------+ + | Care Shaper Hand Name | Role | Phone | [...] | [address] [place], [place] | (stomach cramps and | | | | [address] [place] | [address] [place], [place] | liquid stool) | | | | [address] [place], [place] | [address] | | | | | [address] | | | | | | [phone] | | | +--------+ + + + [...] | | | | | | [place] [address] | | | | | | [phone] | | | | | | | [...] | | | | | | [place] [address] | | | | | | [phone] | | | | | | | | +--------+ + + + + | 05/21/ | Implant | Cardiology | Daljit Singletary, | Remote Device | | 2019 | Monitor | | [address] [place] | Interrogation | | | | | [place], | (Primary Dx); | | | | | [place] [address] | Pacemaker; | | | | | [phone] | Sinoatrial node | | | | [...]
--- OUTSIDE RECORDS SUMMARY | ~2020-04-15 | XMS | Encounter Summary ---
Demographics + + + | Address | [address] | | | [place] [address] | + + + | Home Phone [...] Team Providers + +------+ + | Care Collector Name | Role | Phone | [...] | SH[place] [address] | [address] [place] | remote) | | | | [place], | [place], | | | | | [place] [address] | [place] [address] | | | | | [phone] | [phone] | | | | | | | [...] | | | | | | [place] [address] | | | | | | [phone] | | | | | | | [...] | | | | | | [place] [address] | | | | | | [phone] | | | | | | | | +--------+ + + + + | 05/21/ | Implant | Cardiology | Daljit Singletary, | Remote Device | 2019 | Monitor | | MD [address] | Interrogation | | | | | [place], | (Primary Dx); | | | | | [place] [address] | Pacemaker; | | | | | [phone] | Sinoatrial node | | | | | | dysfunction (HCC) | | | | | | with symptomatic | | | | | | bradycardia | +--------+ + + + + documented as of this encounter Visit Diagnoses Not on filedocumented in this encounter"
--- OUTSIDE RECORDS SUMMARY | ~2020-04-15 | XMS | Encounter Summary ---
Demographics + + + | Address | [address] | | | [place] [address] | + + + | Home Phone [...] Providers + +------+ + | Care Ring Facer Name | Role | Phone | [...] [place] | | | | | | [address] | | | | | | [phone] | | | +--------+ + + + [...] W | | | | | | [place], | | | | | | [place] [address] | | | | | | [phone] | | | | | | | | +--------+ + + + + | 05/01/ | Procedure | Cardiology | | | | 2019 | visit | | | | +--------+ + + + + | 05/01/ | Office | Cardiology | Silvia, | | | 2019 | Visit | | [address] | | | | | | [place], | | | | | | [place] [address] | | | | | | [phone] | | | | | | | | +--------+ + + + + | 05/21/ | Implant | Cardiology | Daljit Singletary, | Remote Device | | 2019 | Monitor | | [address] [facility] | Interrogation | | | | | [place], | (Primary Dx); | | | | | [place] [address] | Pacemaker; | | | | | [phone] | Sinoatrial node | | | | | | dysfunction (HCC) | | | | | | with symptomatic | | | | | | bradycardia | +--------+ + + + + documented as of this encounter Visit Diagnoses Not on filedocumented in this encounter"
--- OUTSIDE RECORDS SUMMARY | ~2020-04-15 | XMS | Encounter Summary ---
Demographics + + + | Address | [address] | | | [place] [address] | + + + | Home Phone [...] Providers + +------+ + | Care Flat Lock Machine Operator Name | Role | Phone [...] [address] | | | | | [place], | [place], | | | | | [place] [address] | [place] [address] | | | | | [phone] | [phone] | | | | | | | [...] | | | | | | [place] [address] | | | | | | [phone] | | | | | | | [...] | | | | | | [place] [address] | | | | | | [phone] | | | | | | | | +--------+ + + + + | 05/21/ | Implant | Cardiology | Daljit Singletary, | Remote Device | 2019 | Monitor | | MD [address] [place] | Interrogation | | | | | [place], | (Primary Dx); | | | | | [place] [address] | Pacemaker; | | | | | [phone] | Sinoatrial node | | | | | | dysfunction (HCC) | | | | | | with symptomatic | | | | | | bradycardia | +--------+ + + + + documented as of this encounter Visit Diagnoses Not on filedocumented in this encounter"
--- OUTSIDE RECORDS SUMMARY | ~2020-04-15 | XMS | Encounter Summary ---
Demographics + + + | Address | [address] | | | [place] [address] | + + + | Home Phone [...] Providers + +------+ + | Care Court Crier Name | Role | Phone | + [...] | | CARDIOLOGY [address] | Janeen PASTER OPERATOR [address] | | | | | [place], | [place], | | | | | [place] [address] | [place] [address] | | | | | [phone] | [phone] | | | | | | | [...] | | | | | | [place], | | | | | | [place] [address] | | | | | | [phone] | | | | | | | | +--------+ + + + + | 05/01/ | Procedure | Cardiology | | | | 2019 | visit | | | | +--------+ + + + + | 05/01/ | Office | Cardiology | Silvia, | | | 2019 | Visit | | PARISA [address] | | | | | | [place], | | | | | | [place] [address] | | | | | | [phone] | | | | | | | | +--------+ + + + + | 05/21/ | Implant | Cardiology | Daljit Singletary, | Remote Device | 2019 | Monitor | | MD [address] [place] | Interrogation | | | | | [place], | (Primary Dx); | | | | | [place] [address] | Pacemaker; | | | | | [phone] | Sinoatrial node | | | | | | dysfunction (HCC) | | | | | | with symptomatic | | | | | | bradycardia | +--------+ + + + + documented as of this encounter Visit Diagnoses Not on filedocumented in this encounter"
--- OUTSIDE RECORDS SUMMARY | ~2020-04-15 | XMS | Encounter Summary ---
Demographics + + + | Address | [address] [place] [address] [address] | | | [place] [phone] | + + + | Home Phone [...] [place] | | | | | [phone] | | + + + + + Care Team Providers + +------+ + | Care Clinical Support Nurse Name | Role | Phone | [...] | | | [address] | [place], [place] | | | | | Mailcode: [place] | [address] | | | | | for [facility] and | [phone] | | | | | [facility] | | | | | | [facility] [place] | | | | | | [address] | | | | | | [phone] | | | +--------+ + + + [...]
--- OUTSIDE RECORDS SUMMARY | ~2020-04-15 | XMS | Encounter Summary ---
Demographics + + + | Address | [address] | | | [place] [address] | + + + | Home Phone [...] Providers + +------+ + | Care Fine Grade Bulldozer Operator Name | Role | Phone | [...] | | CARDIOLOGY [address] | Janeen OBGYN NURSE [address] | | | | | [place], | [place], | | | | | [place] [address] | [place] [address] | | | | | [phone] | [phone] | | | | | | | [...] W | | | | | | [place], | | | | | | [place] [address] | | | | | | [phone] | | | | | | | | +--------+ + + + + | 05/01/ | Procedure | Cardiology | | | | 2019 | visit | | | | +--------+ + + + + | 05/01/ | Office | Cardiology | Silvia, | | | 2019 | Visit | | PARISA Vernon [address] | | | | | | [place], | | | | | | [place] [address] | | | | | | [phone] | | | | | | | | +--------+ + + + + | 05/21/ | Implant | Cardiology | Daljit Singletary, | Remote Device | | 2019 | Monitor | | [facility] | Interrogation | | | | | [place], | (Primary Dx); | | | | | [place] [address] | Pacemaker; | | | | | [phone] | Sinoatrial node | | | | | | dysfunction (HCC) | | | | | | with symptomatic | | | | | | bradycardia | +--------+ + + + + documented as of this encounter Visit Diagnoses Not on filedocumented in this encounter"
--- OUTSIDE RECORDS SUMMARY | ~2020-04-15 | XMS | Encounter Summary ---
Demographics + + + | Address | [address] | | | [place] [address] | + + + | Home Phone [...] Team Providers + +------+ + | Care Belting Cutter Name | Role | Phone | + +------+ + | Kirk French MD | PCP | | + +------+ + Encounter Details +--------+---------+ + + + | Date | Type | Department | Care Team | Description | +--------+---------+ + + + | 01/05/ | Surgery | [facility] | Emmanuel Daniel MD | EGD | | 2019 | | MED CTR MP INTRA OP | [address], [place] | | | | | [address] | [address] [place], [place] | | | | | [place], [place] | [address] | | | | | [address] | | | | | | [phone] | | | +--------+---------+ + + + [...] for a few hours. Date Last Reviewed: 09/22/201619996206-4806 [facility] [employer]. [address] [place] [address]. All righ ts reserved. This information is [...] vomiting, or vomiting blood Date Last Reviewed: 05/22/201619999875-9732 [facility] [employer]. [address] [place] [address]. All righ ts reserved. This information is [...] You can't be awakened Date Last Reviewed: 09/08/201619999300-7328 [facility] [employer]. [address] [place] [address], [place] [address]. All righ ts reserved. This information is [...] + + + +---------+ + + | [place]-3 Fatty | CAPS, one capsule by | [...] | | | | | | [place] [address] | | | | | | [phone] | | | | | | | [...] | | | | | | [place] [address] | | | | | | [phone] | | | | | | | | +--------+ + + + + | 05/21/ | Implant | Cardiology | Daljit Singletary, | Remote Device | | 2019 | Monitor | | [address] | Interrogation | | | | | [place], | (Primary Dx); | | | | | [place] [address] | Pacemaker; | | | | | [phone] | Sinoatrial node | | | | [...] [address], | REFERENCE LAB | | [place] [id number] Selector Packer: Miguel Galarza MD, Phone: | THALIARP - KINA | | [phone] | | + + + + + + + + | Performing | Address | City/State/Zipcode | Phone Number | | Organization | | | | + + + + + | REFERENCE LAB | [address] | [place], [place] | [phone] | | [facility] | [facility] | [address] | | + + + + + [...] | REFERENCE LAB | | [place] [phone] Selector Packer: Miguel Galarza MD, Phone: | ARSH CASTANON | | [phone] | | + + + + + + + + | Performing | Address | City/State/Zipcode | Phone Number | | Organization | | | | + + + + + | REFERENCE LAB | [address] [facility] [address] [facility] | [place], [place] | [phone] | | ARSH CASTANON | [facility] | [address] | | + + + + + [...] [address] | [place] | [phone] | | [facility] | | [address] | | | - LABORATORY | | [...] [address] | [place] | [phone] | | [facility] | | [address] | | | - LABORATORY | | [...] [address] | [place] | [phone] | | [facility] | | [address] | | | - LABORATORY | | [...] [address] | [place] | [phone] | | [facility] | | [address] | | | - LABORATORY | | [...] [address] | [place] | [phone] | | [facility] | | [address] | | | - LABORATORY | | [...] [address] | [place] | [phone] | | [facility] | | [address] | | | - LABORATORY | | | | + + + + + DAVIAN (01/05/2019 8:36 AM PST) + + | Specimen | + + | | + + + + -+ | Narrative | Performed At | + + -+ | | [facility] | | GastroenterologyPatient Name: Moe Venegas Date: | PROVATION | | 01/05/2019 8:36 AMMRN: [id number] #: [id number] of : | | | 9Admit Type: AmbulatoryAge: 58Room: [facility] 01Gender: MaleNote | | | Status: FinalizedAttending MD: Emmanuel Daniel , [facility]cedure: | | | Upper GI endoscopyIndications: Diarrhea, Weight | | | lossProviders: Emmanuel Daniel MD, Heidi An, | | | RN, Kim Hicks, Pension Fund Manager, | | | Jarett Barakat MD [...] physician, the nurse, the anesthesiologist and the hospital technician | | | in the endoscopy [...] | | Imaging was performed using the [employer] | | | Endoscopy (FICE) [...] Scope In: 8:43:57 AMScope Out: 8:49:50 AM [facility]. | | | [facility], [address] [place] [address] | | | [phone] | | |Recommendation: | | | - [...] |Scope Out: 8:49:50 AM | | | [facility], [address] [facility], [place], [place] | | | [address] | | + + -+ + +---------+ [...] | PROVATION | | 01/05/2019 8:36 AMMRN: [id number] #: [id number] of : | | | 9Admit Type: AmbulatoryAge: 58Room: [facility] 01Gender: MaleNote | | | Status: FinalizedAttending MD: Emmanuel Daniel , [facility]cedure: | | | ColonoscopyIndications: Clinically significant diarrhea of | | | unexplained origin, Weight lossProviders: | | | Emmanuel Daniel MD, Heidi An RN, Kim | | | Fiorella Hicks, Pension Fund Manager, Jarett P. | | | MD Roshni [...] | | | the anesthesiologist and the hospital technician in the endoscopy suite. 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 B. The specimen, labeled "[place], right colon" is received | | | in formalin and consists of six 0.2-0.3 cm lin fragments. Entirely | | | submitted in (B1). C. The specimen, labeled "[place], left colon" | | | is received in formalin and consists of six 0.2-0.3 cm lin-pink | | | fragments. Entirely submitted in (C1). am:AMB:portillo PERFORMING | | | LABORATORY: The technical component was performed by [facility] | | | [facility], [address] [place] [address] (Health And Physical Education Teacher: | | | Kailey Stafford MD; CLIA# [id number]). Professional interpretation was | | | performed by [facility], [facility], [address] | | | [place] [address] (Health And Physical Education Teacher: Ishaan | | | Anthony Dao; [facility]#: [id number]). Diagnostician: Ishaan Fitzpatrick | | | Sylwia [...]
--- OUTSIDE RECORDS SUMMARY | ~2020-04-15 | XMS | Encounter Summary ---
Demographics + + + | Address | [address] | | | [place] [address] | + + + | Home Phone [...] Providers + +------+ + | Care Boat Dispatcher Name | Role | Phone | + +------+ + | Kirk French MD | PCP | | + +------+ + Encounter Details +--------+ + + + + | Date | Type | Department | Care Team | Description | +--------+ + + + + | 01/07/ | Hospital | [facility] | Conversion | | | 2017 | Encounter | [facility] | Transaction, | | | | | ULTRASOUND [address] | Provider Unknown | | | | | [address] [facility] [address] | [phone] | | | | | [place] | | | | | | [address] | Kirk French | | | | | [phone] | MD Eva Guidry | | | | | | [address] [place], | | | | | | [place] [address] | | | | | | [phone] | | | | | | | [...] + + + +---------+ + + | [place]-3 Fatty | CAPS, one capsule by | [...] | | | | | | [place] [address] | | | | | | [phone] | | | | | | | | +--------+ + + + + | 05/01/ | Procedure | Cardiology | | | | 2019 | visit | | | | +--------+ + + + + | 05/01/ | Office | Cardiology | Silvia, | | | 2019 | Visit | | PARISA Vernon W | | | | | | [place], | | | | | | [place] [address] | | | | | | [phone] | | | | | | | | +--------+ + + + + | 05/21/ | Implant | Cardiology | Daljit Singletary, | Remote Device | | 2019 | Monitor | | [address] [place] | Interrogation | | | | | [place], | (Primary Dx); | | | | | [place] [address] | Pacemaker; | | | | | [phone] | Sinoatrial node | | | | | | dysfunction (HCC) | | | | | | with symptomatic | | | | | | bradycardia | +--------+ + + + + documented as of this encounter Visit Diagnoses Not on filedocumented in this encounter"
--- OUTSIDE RECORDS SUMMARY | ~2020-04-15 | XMS | Encounter Summary ---
Demographics + + + | Address | [address] | | | [place] [address] | + + + | Home Phone [...] Team Providers + +------+ + | Care Bacteriology Technician Name | Role | Phone | + +------+ + | Kirk French MD | PCP | | + +------+ + Encounter Details +--------+ + + + + | Date | Type | Department | Care Team | Description | +--------+ + + + + | 11/17/ | Telephone | [facility] | Kirk French | | | 2019 | | GERALDINE Guidry MD [address] | | | | | [facility] | [address] | | | | | [address] | [place] [address] | | | | | [place], [place] | [phone] | | | | | [address] | | | | | | [phone] | | | +--------+ + + + [...] | | | | | | [place] [address] | | | | | | [phone] | | | | | | | [...] | | | | | | [place] [address] | | | | | | [phone] | | | | | | | | +--------+ + + + + | 05/21/ | Implant | Cardiology | Daljit Singletary, | Remote Device | | 2019 | Monitor | | [address] [facility] | Interrogation | | | | | [address] [place], | (Primary Dx); | | | | | [place] [address] | Pacemaker; | | | | | [phone] | Sinoatrial node | | | | | | dysfunction (HCC) | | | | | | with symptomatic | | | | | | bradycardia | +--------+ + + + + documented as of this encounter Visit Diagnoses Not on filedocumented in this encounter"
--- OUTSIDE RECORDS SUMMARY | ~2020-04-15 | XMS | Encounter Summary ---
Demographics + + + | Address | [address] | | | [place] [address] | + + + | Home Phone [...] Team Providers + +------+ + | Care Running Rigger Name | Role | Phone | + +------+ + | Kirk French MD | PCP | | + +------+ + Encounter Details +--------+---------+ + + + | Date | Type | Department | Care Team | Description | +--------+---------+ + + + | 01/05/ | Surgery | [facility] | Emmanuel Danile MD | EGD | | 2019 | | MED CTR MP INTRA OP | [address], [place] | | | | | [address] | [address] [place], [place] | | | | | [place], [place] | [address] | | | | | [address] | | | | | | [phone] | | | +--------+---------+ + + + [...] for a few hours. Date Last Reviewed: 09/22/201619996819-8808 [employer]. [address] [place] [address]. All righ ts reserved. This information is [...] vomiting, or vomiting blood Date Last Reviewed: 05/22/201619991781-5690 [employer]. [address] [place] [address]. All righ ts reserved. This information is [...] You can't be awakened Date Last Reviewed: 09/08/201619990786-6801 [employer]. [address] [place] [address], [place] [address]. All righ ts reserved. This information is [...] + + + +---------+ + + | Hale-3 Fatty | CAPS, one capsule by | [...] | | | | | | [place] [address] | | | | | | [phone] | | | | | | | | +--------+ + + + + | 05/01/ | Procedure | Cardiology | | | | 2019 | visit | | | | +--------+ + + + + | 05/01/ | Office | Cardiology | Silvia, | | | 2019 | Visit | | PARISA Vernon [address] | | | | | [address] [place], | | | | | | [place] [address] | | | | | | [phone] | | | | | | | | +--------+ + + + + | 05/21/ | Implant | Cardiology | Daljit Singletary, | Remote Device | | 2019 | Monitor | | [address] | Interrogation | | | | | [place], | (Primary Dx); | | | | | [place] [address] | Pacemaker; | | | | | [phone] | Sinoatrial node | | | | [...] [address], | REFERENCE LAB | | [place] [id number] Stoneworker: Miguel Galarza MD, Phone: | THALIARP - KINA | | [phone] | | + + + + + + + + | Performing | Address | City/State/Zipcode | Phone Number | | Organization | | | | + + + + + | REFERENCE LAB | [address] | [place], [place] | [phone] | | [facility] | [facility] | [address] | | + + + + + [...] | REFERENCE LAB | | [place] [id number] Stoneworker: Miguel Galarza MD, Phone: | ARSH CASTANON | | [phone] | | + + + + + + + + | Performing | Address | City/State/Zipcode | Phone Number | | Organization | | | | + + + + + | REFERENCE LAB | [address] [facility] [address] | [place], [place] | [phone] | | ARSH CASTANON | [facility] | [address] | | + + + + + [...] [address] | [place] | [phone] | | [facility] | | [address] | | | - LABORATORY | | [...] [address] | [place] | [phone] | | [facility] | | [address] | | | - LABORATORY | | [...] [address] | [place] | [phone] | | [facility] | | [address] | | | - LABORATORY | | [...] [address] | [place] | [phone] | | [facility] | | [address] | | | - LABORATORY | | [...] [address] | [place] | [phone] | | [facility] | | [address] | | | - LABORATORY | | [...] [address] | [place] | [phone] | | [facility] | | [address] | | | - LABORATORY | | | | + + + + + DAVIAN (01/05/2019 8:36 AM PST) + + | Specimen | + + | | + + + + -+ | Narrative | Performed At | + + -+ | | [facility] | | GastroenterologyPatient Name: Moe Venegas Date: | PROVATION | | 01/05/2019 8:36 AMMRN: [id number] #: [id number] of : | | | 9Admit Type: AmbulatoryAge: 58Room: [facility] 01Gender: MaleNote | | | Status: FinalizedAttending MD: Emmanuel Daniel , ANDALUSIA HEALTHrocedure: | | | Upper GI endoscopyIndications: Diarrhea, Weight | | | lossProviders: Emmanuel Daniel MD, Heidi An, | | | RN, Kim Hicks, Deckhand Tuna Boat, | | | Jarett Barakat MD (Anesthesia [...] physician, the nurse, the anesthesiologist and the instrument technician helper | | | in the endoscopy suite. [...] | | Imaging was performed using the [employer] | | | Endoscopy (FICE) [...] Scope In: 8:43:57 AMScope Out: 8:49:50 AM [facility]. | | | [facility], [address] [place] [address] | | | [phone] | | |Recommendation: | | | - [...] |Scope Out: 8:49:50 AM | | | [facility], [address] [facility], [place], [place] | | | [address] | | + + -+ + +---------+ [...] | PROVATION | | 01/05/2019 8:36 AMMRN: [id number] #: [id number] of : | | | 9Admit Type: AmbulatoryAge: 58Room: [facility] 01Gender: MaleNote | | | Status: FinalizedAttending MD: Emmanuel Daniel , ANDALUSIA HEALTHrocedure: | | | ColonoscopyIndications: Clinically significant diarrhea of | | | unexplained origin, Weight lossProviders: | | | Emmanuel Daniel MD, Heidi An RN, Kim | | | Fiorella Hicks, Deckhand Tuna Boat, Jarett P. | | | MD Roshni [...] | | | the anesthesiologist and the instrument technician helper in the endoscopy suite. | | | [...] AMScope Out: | | | 9:06:28 AM [facility], [address] [place] [address], | | | [place] [address] | | | - Discharge patient to [...] |Scope Out: 9:06:28 AM | | | [facility], [address] [place] [address], [place], [place] | | | [address] | | + + -+ + +---------+ [...] | | | (atherosclerotic heart disease of in[place] coronary artery without | | | angina [...] chronic or | | | microscopic colitis. BES:[facility]:C3NR GROSS DESCRIPTION: A. The | | | specimen, labeled "Laura, duodenal biopsy" is received in formalin | | | and consists of seven 0.1-0.5 cm lin fragments. Entirely submitted in | | | (A1). B. The specimen, labeled "Pavillion, right colon" is received | | | in formalin and consists of six 0.2-0.3 cm lin fragments. Entirely | | | submitted in (B1). C. The specimen, labeled "Pavillion, left colon" | | | is received in formalin and consists of six 0.2-0.3 cm lin-pink | | | fragments. Entirely submitted in (C1). am:AMB:portillo PERFORMING | | | LABORATORY: The technical component was performed by [facility] | | | [facility], [address] [place] [address] (Import Customer Service Manager: | | | Kailey Stafford MD; CLIA# [id number]). Professional interpretation was | | | performed by [facility], [address] | | | [place] [address] (Import Customer Service Manager: Ishaan | | | Anthony Dao; [facility]#: [id number]). Diagnostician: Ishaan Fitzpatrick | | | Sylwia [...]
--- OUTSIDE RECORDS SUMMARY | ~2020-04-15 | XMS | Clinical Summary ---
Demographics + + + | Address | [address] [place] [address] | | | [place] [address] | + + + | Home Phone [...] [place] | | | | | [address] | | + + + + + Care Team Providers + +------+ + | Care Animal Hospital Clerk Name | Role | Phone | + +------+ + | Darion Holden DO | PCP | | + +------+ + Source Comments IVETTE is fully live on both EpicCare Ambulatory and EpicCare InPatient.[facility] Allergies + + + + [...] | | | | | | | [address] | | + +--------+ +--------+ + +--------+ | [employer] | AARP | xxxxxxxxxx | 11/22/19 | [phone] | [address] | Indemn | | RETIRED PEOPLE | | | 10-Pre | 9 | [id number] | ity | | | | | sent | | [place] | | | | | | | | [address] | | + +--------+ +--------+ + +--------+ + +--------+ +--------+ + + | Guarantor Name | Accoun | Relation to | Date | Phone | Billing Address | | | t Type | Patient | of | | | | | | | | | | + +--------+ +--------+ + + | Moe Sanchez | Person | Self | [birth year] | [address] | | | cristo/Per | | 1960 | [phone] | [place] | | | roxanne | | | 8 (Home) | [address] | + +--------+ +--------+ + + Advance Directives + + + + + | Type | Date Recorded | Patient | Explanation | | | | Tv News Director | | + + + + + | Advance | | | | | Directives and | | | | | Living Will | | | | + + + + + | Power of | | | | | Linen Clerk | | | | + + + + +
--- OUTSIDE RECORDS SUMMARY | ~2020-04-15 | XMS | Encounter Summary ---
Demographics + + + | Address | [address] | | | [place] [address] | + + + | Home Phone [...] Providers + +------+ + | Care Heel Stainer Name | Role | Phone | [...] 2019 | | GASTROENTEROLOGY | [address], [place] | | | | | [address] [place] | [address] [place], [place] | | | | | [address] [place], [place] | [address] | | | | | [address] | | | | | | [phone] | | | +--------+ + + + [...] | | | | | | [place] [address] | | | | | | [phone] | | | | | | | | +--------+ + + + + | 05/01/ | Procedure | Cardiology | | | | 2019 | visit | | | | +--------+ + + + + | 05/01/ | Office | Cardiology | Silvia, | | | 2019 | Visit | | PARISA [place] [address] | | | | | | [place], | | | | | | [place] [address] | | | | | | [phone] | | | | | | | | +--------+ + + + + | 05/21/ | Implant | Cardiology | Daljit Singletary, | Remote Device | | 2019 | Monitor | | [address] [facility] | Interrogation | | | | | [place], | (Primary Dx); | | | | | [place] [address] | Pacemaker; | | | | | [phone] | Sinoatrial node | | | | | | dysfunction (HCC) | | | | | | with symptomatic | | | | | | bradycardia | +--------+ + + + + documented as of this encounter Visit Diagnoses Not on filedocumented in this encounter"
--- OUTSIDE RECORDS SUMMARY | ~2020-04-15 | XMS | Encounter Summary ---
Demographics + + + | Address | [address] [place] [address] [address] | | | [place] [...] [place] | | | | | [address] | | + + + + + Care Team Providers + +------+ + | Care Transformation Consultant Name | Role | Phone | + +------+ + | Darion Holden DO | PCP | | + +------+ + Encounter Details +--------+ + + + + | Date | Type | Department | Care Team | Description | +--------+ + + + + | 01/22/ | Transcribe | [facility] | Transcribe | | | 2020 | Orders | [facility] [address] | Encounter, Provider, | | | | | Tremayne Crane Mailcode: | [address] | | | | | [address] [place] for | [place] [address] | | | | | [facility], | | | | | | [address] | | | | | | [place], [place] | | | | | | [address] | | | | | | [phone] | | | +--------+ + + + [...]
--- OUTSIDE RECORDS SUMMARY | ~2020-04-15 | XMS | Encounter Summary ---
Demographics + + + | Address | [address] | | | [place] [address] | + + + | Home Phone [...] Providers + +------+ + | Care Canvas Worker Name | Role | Phone | + +------+ + PCP | Unavailable | + +------+ + Encounter Details +--------+ + + + + | Date | Type | Department | Care Team | Description | +--------+ + + + + | 01/14/ | Hospital | [facility] | Deburi, | BACKACHE NOS | | 2004 | Encounter | MEDICAL CENTER | MD [address] | | | | | CLINICAL DECISION | [place] | | | | | [address] | [place] [address] | | | | | [place], [place] | [phone] | | | | | [address] | | | | | | [phone] | | | +--------+ + + + [...] W | | | | | | [place], | | | | | | [place] [address] | | | | | | [phone] | | | | | | | | +--------+ + + + + | 05/01/ | Procedure | Cardiology | | | | 2019 | visit | | | | +--------+ + + + + | 05/01/ | Office | Cardiology | Silvia, | | | 2019 | Visit | | [address]ISA [address] | | | | | | [place], | | | | | | [place] [address] | | | | | | [phone] | | | | | | | | +--------+ + + + + | 05/21/ | Implant | Cardiology | Daljit Singletary, | Remote Device | | 2019 | Monitor | | [address] [place] | Interrogation | | | | | [place], | (Primary Dx); | | | | | [place] [address] | Pacemaker; | | | | | [phone] | Sinoatrial node | | | | | | dysfunction (HCC) | | | | | | with symptomatic | | | | | | bradycardia | +--------+ + + + + documented as of this encounter Visit Diagnoses + + | Diagnosis | + + | Backache, unspecified | + + documented in this encounter"
--- OUTSIDE RECORDS SUMMARY | ~2020-04-15 | XMS | Encounter Summary ---
Demographics + + + | Address | [address] | | | [place] [address] | + + + | Home Phone [...] Team Providers + +------+ + | Care Soccer Ball Assembler Name | Role | Phone | [...] | | CARDIOLOGY [address] | Janeen OFFICE AGENT [address] | | | | | [place], | [place], | | | | | [place] [address] | [place] [address] | | | | | [phone] | [phone] | | | | | | | [...] | | | | | | [place], | | | | | | [place] [address] | | | | | | [phone] | | | | | | | | +--------+ + + + + | 05/01/ | Procedure | Cardiology | | | | 2019 | visit | | | | +--------+ + + + + | 05/01/ | Office | Cardiology | Silvia, | | | 2019 | Visit | | PARISA Vernon [address] | | | | | | [place], | | | | | | [place] [address] | | | | | | [phone] | | | | | | | | +--------+ + + + + | 05/21/ | Implant | Cardiology | Daljit Singletary, | Remote Device | | 2019 | Monitor | | [address] [facility] | Interrogation | | | | | [place], | (Primary Dx); | | | | | [place] [address] | Pacemaker; | | | | | [phone] | Sinoatrial node | | | | | | dysfunction (HCC) | | | | | | with symptomatic | | | | | | bradycardia | +--------+ + + + + documented as of this encounter Visit Diagnoses Not on filedocumented in this encounter"
--- OUTSIDE RECORDS SUMMARY | ~2020-04-15 | XMS | Encounter Summary ---
Demographics + + + | Address | [address] | | | [place] [address] | + + + | Home Phone [...] Providers + +------+ + | Care Spinning Supervisor Name | Role | Phone | [...] | Aneurysmal | [place], | [address] [place] | | | | | dilatation | PARISA Solis | [place], | | | | | ([facility]) | [address] | [place] | | | | | Procedures | [place] | [address] | | | | | ECHO | [place], | Phone: | | | | | Complete | [place] | [phone] | | | | | | [address] | Fax: | | | | | | Phone: | [phone] | | | | | | [phone] | | | | | | | Fax: | | | | | | | [phone] | | +--------+--------+ + + + + [...] | | | | | Aneurysmal | [place], | [address] [place] | | | | | dilatation | PARISA [place]is | [place], | | | | | ([facility]) | [address] | [place] | | | | | Procedures | [place] | [address] | | | | | ECHO | [place], | Phone: | | | | | Complete | [place] | [phone] | | | | | | [address] | Fax: | | | | | | Phone: | [phone] | | | | | | [phone] | | | | | | | Fax: | | | | | | | [phone] | | +--------+--------+ + + + + Encounter Details +--------+ + + + + | Date | Type | Department | Care Team | Description | +--------+ + + + + | 11/16/ | Hospital | [facility] | [place], | Aneurysmal | | 2017 | Encounter | MED CTR ECHO [address] | Janeen, FIRST ASSISTANT MANAGER [address] | dilatation (HCC) | | | | [place] | [place], | | | | | [place], [place] [address] | [place] [address] | | | | | [phone] | [phone] | | | | | | | [...] + + + +---------+ + + | [place]-3 Fatty | CAPS, one capsule by [...] | | | | | | [place] [address] | | | | | | [phone] | | | | | | | [...] | | | | | | [place] [address] | | | | | | [phone] | | | | | | | | +--------+ + + + + | 05/21/ | Implant | Cardiology | Sydni Singletary, | Remote Device | | 2019 | Monitor | | MD [address] [place] | Interrogation | | | | | [place], | (Primary Dx); | | | | | [place] [address] | Pacemaker; | | | | | [phone] | Sinoatrial node | | | | [...] Room Number SARAH Patient | | | [id number] Date of Study 11/16/2017 Number | | | Visit Number [id number] | | | Referring Physician GURJIT TROY Number | | | NORMA SOLIS Date | | | of 1960 Pharmaceutical Laboratory Technician ROMAINE | | | MARISSA TIPTON Age 57 year(s) Interpreting | | | GURJIT TROY | | | Supervisor Cutting And Sewing Room SYDNI SINGLETARY, | | | | | | Gender Male Nurse | | | Stress Die Designer Procedure Type of | | | [...] | | | EF | | | Vcazdkfif00% Left Ventricle Diastolic Dimension: 5.12 cm | [...] Volume: 46.33 ml | | | EF Mdjcqylye14% | | | | | | Left [...] BARRY Room Number SARAH | | Patient [id number] Date of Study 11/16/2017 Number Visit Number | | [id number] Referring Physician GURJIT TROY | | Number RHANGELIA SOLIS Date of | | 1960 Pharmaceutical Laboratory Technician ROMAINE TIPTON PARESH Age 57 year(s) | | Interpreting GURJIT TROY Supervisor Cutting And Sewing Room | | SYDNI SINGLETARY MD | | [...] LA Volume: 46.33 ml | | EF Ytrwgtfzs70% Left Ventricle Diastolic Dimension: 5.12 cm Systolic [...] LA Volume: 46.33 ml | | EF Iurpacwmd33% | | | | Left Ventricle | [...]
--- OUTSIDE RECORDS SUMMARY | ~2020-04-15 | XMS | Encounter Summary ---
Demographics + + + | Address | [address] | | | [place] [address] | + + + | Home Phone [...] Providers + +------+ + | Care Biomedical Equipment Tech Name | Role | Phone | [...] + + | 05/26/ | Emergency | JACKLANanette GUTIERREZ MICHELLE | Lizbeth Green | Atypical chest pain | | 2013 | | MED CTR EMERGENCY | DO Nicole Fink | (Primary Dx); | | | | CENTER [address] | [place], [place] | Anxiety | | | | [place], [place] | [address] | | | | | [address] | | | | | | [phone] | | | +--------+ + + + [...] + + + +---------+ + + | [place]-3 Fatty | CAPS, one capsule by | [...] W | | | | | | [address] [place], | | | | | | [place] [address] | | | | | | [phone] | | | | | | | | +--------+ + + + + | 05/01/ | Procedure | Cardiology | | | | 2019 | visit | | | | +--------+ + + + + | 05/01/ | Office | Cardiology | [place], | | | 2019 | Visit | | PARISA [place] [address] | | | | | | [address] [place], | | | | | | [place] [address] | | | | | | [phone] | | | | | | | | +--------+ + + + + | 05/21/ | Implant | Cardiology | Daljit Singletary, | Remote Device | 2019 | Monitor | | MD [address] | Interrogation | | | | | [place], | (Primary Dx); | | | | | [place] [address] | Pacemaker; | | | | | [phone] | Sinoatrial node | | | | [...] the uneventful IV administration of 80 mL Xbcptbjeb280 contrast. Timing of | | contrast bolus [...] + | MISCELLANEOUS LAB | | | [phone] | + +---------+ + + | MISCELANIOUS LAB | | | [phone] | + +---------+ + + Troponin I [...] + | [facility] | [address] | [place] | [phone] | | [facility] | | [address] | | | - LABORATORY | | | | + + + + + | [facility] | [address] | [place] | | | [facility] | | [address] | | | [...] | | | | mmol/L | [facility] | | | | [...] | | MEDICAL | | | | mL/min/1.39q0Ekzq than | | CENTER - | | [...] [address] | [place] | [phone] | | [facility] | | [address] | | | - LABORATORY | | | | + + + + + | [facility] | [address] | [place] | | | [facility] | | [address] | | | [...] + | [facility] | [address] | [place] | [phone] | | [facility] | | [address] | | | - LABORATORY | | | | + + + + + | [facility] | [address] | [place], [place] | | | [facility] | | [address] | | | [...]
--- OUTSIDE RECORDS SUMMARY | ~2020-04-15 | XMS | Encounter Summary ---
Demographics + + + | Address | [address] | | | [place] [address] | + + + | Home Phone [...] Providers + +------+ + | Care Control Systems Drafting Officer Name | Role | Phone | + +------+ + PCP | Unavailable | + +------+ + Encounter Details +--------+ + + + + | Date | Type | Department | Care Team | Description | +--------+ + + + + | 01/27/ | [facility] | [facility] | Jonathan, | | | 2008 | Encounter | MED CTR EMERGENCY | Martell Cr MD [address] | | | | | CENTER [address] | [place] | | | | | [place] | [place] [address] | | | | | [address] | [phone] | | | | | [phone] | | | +--------+ + + + [...] W | | | | | | [place], | | | | | | [place] [address] | | | | | | [phone] | | | | | | | | +--------+ + + + + | 05/01/ | Procedure | Cardiology | | | | 2019 | visit | | | | +--------+ + + + + | 05/01/ | Office | Cardiology | [place]via | | | 2019 | Visit | | PARISA Vernon [address] | | | | | | [place], | | | | | | [place] [address] | | | | | | [phone] | | | | | | | | +--------+ + + + + | 05/21/ | Implant | Cardiology | Daljit Singletary, | Remote Device | 2019 | Monitor | | MD [address] [place] [address] | Interrogation | | | | | [place], | (Primary Dx); | | | | | [place] [address] | Pacemaker; | | | | | [phone] | Sinoatrial node | | | | | | dysfunction (HCC) | | | | | | with symptomatic | | | | | | bradycardia | +--------+ + + + + documented as of this encounter Visit Diagnoses Not on filedocumented in this encounter"
--- OUTSIDE RECORDS SUMMARY | ~2020-04-15 | XMS | Encounter Summary ---
Demographics + + + | Address | [address] [place] [address] [address] | | | [place] [address] | + + + | Home Phone [...] [place] | | | | | [address] | | + + + + + [...] | | | | | TRANSTHORACI | [place], [place] | for Health | | | | | C | [address] | and Healing, | | | | | ECHOCARDIOGR | Phone: | Building [address] | | | | | AM, ADULT | [phone] | [place], [place] | | | | | | Fax: | [address] | | | | | | [phone] | Phone: | | | | | | | [phone] | +--------+--------+ + + + + Encounter Details +--------+ + + + + | Date | Type | Department | Care Team | Description | +--------+ + + + + | 02/03/ | Hospital | Cardiac | | | | 2010 | Encounter | Non-Invasive Testing | | | | | | at [facility] [address] | | | | | [address] Mailcode: CH9A | | | | | | [facility] | | | | | | and Healing, | | | | | | [address] | | | | | | [place], [place] | | | | | | [address] | | | | | | [phone] | | | +--------+ + + + [...]
--- OUTSIDE RECORDS SUMMARY | ~2020-04-15 | XMS | Encounter Summary ---
Demographics + + + | Address | [address] | | | [place] [address] | + + + | Home Phone [...] Team Providers + +------+ + | Care Coo Name | Role | Phone | + [...] Provider Unknown | | | | | [place], [place] | [phone] | | | | | [address] | | | | | | [phone] | | | +--------+ + + + [...] + + +---------+ + + | Blue Grass-3 Fatty | CAPS, one capsule by | [...] | | | | | | | #[id number], exp 07/2016 | | | | | [...] | | | | | | [place] [address] | | | | | | [phone] | | | | | | | | +--------+ + + + + | 05/01/ | Procedure | Cardiology | | | | 2019 | visit | | | | +--------+ + + + + | 05/01/ | Office | Cardiology | Silvia, | | | 2019 | Visit | | [address] | | | | | | [place], | | | | | | [place] [address] | | | | | | [phone] | | | | | | | | +--------+ + + + + | 05/21/ | Implant | Cardiology | Daljit Singletary, | Remote Device | | 2020 | Monitor | | [address] [place] | Interrogation | | | | | [place], | (Primary Dx); | | | | | [place] [address] | Pacemaker; | | | | | [phone] | Sinoatrial node | | | | [...]
--- OUTSIDE RECORDS SUMMARY | ~2020-04-15 | XMS | Encounter Summary ---
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, | (Primary Dx); | | | | | [place] [address] | Pacemaker; | | | | | [phone] | Sinoatrial node | | | | | | dysfunction (HCC) | | | | | | with symptomatic | | | | | | bradycardia | +--------+ + + + + documented as of this encounter Visit Diagnoses Not on filedocumented in this encounter"
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
[2020-04-15] MEDS ORDERED: PERCOCET 5-3251 EACH PO (23:59)
== END 2020-04-16 00:20 | disposition home or self-care (01) ==
LOC: ED 23:22
DX: S82.62XA Displaced fracture of lateral malleolus of left fibula, initial encounter for closed fracture (principal); I10 Essential (primary) hypertension; E78.00 Pure hypercholesterolemia, unspecified; Z88.0 Allergy status to penicillin; Z88.5 Allergy status to narcotic agent; Z88.8 Allergy status to other drugs, medicaments and biological substances; Z79.899 Other long term (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; W18.30XA Fall on same level, unspecified, initial encounter
CPT/HCPCS: 73610; 99283-25

== ENCOUNTER 2020-06-03 13:28 | Emergency (ER) | payer MEDICARE ==
[~2020-06-03] VITALS: Ht 193 cm; Wt 117.9 kg
--- OUTSIDE RECORDS SUMMARY | ~2020-06-03 | XMS | Encounter Summary ---
Demographics + + + | Address | [address] | | | [place] [address] | + + + | Home Phone | | + + + | Preferred Language | Unknown | + + + | Marital Status | | + + + | Church Affiliation | 1013 | + + + | Race | Unknown | + + + | Ethnic Group | Unknown | + + + Author + + + | Author | [facility] | | | and [place] | + + + | Organization | [facility] | | | and [place] | + + + | Address | Unknown | + + + | Phone | Unavailable | + + + Support + + +---------+ + | Name | Relationship | Address | Phone | + + +---------+ + | Nadine Patelgalenvarsha | ECON | Unknown | | + + +---------+ + Care Team Providers + +------+ + | Care Muck Miner Blasting Name | Role | Phone | + [...] Description | +--------+--------+ + + + | 11/07/ | Refill | [facility] [place] | Geri Angel, | Medication Refill | | 2016 | | CARDIOLOGY [address] | GEOTECHNICIAN [address] | | | | [place], | [place], [place] | | | | | [place] [address] | [address] | | | | | [phone] | | | +--------+--------+ + + + [...] on file | | + + + documented as of this [...] | +--------+ + + + + | 10/30/ | Procedure | Cardiology | | | | 2019 | visit | | | | +--------+ + + + + | 10/30/ | Office | Cardiology | Silvia, | | | 2019 | Visit | | PARISA [place] [address] | | | | | | [place], | | | | | | [place] [address] | | | | | | [phone] | | | | | | | | +--------+ + + + + documented as of this encounter Visit Diagnoses Not on filedocumented in this encounter"
--- OUTSIDE RECORDS SUMMARY | ~2020-06-03 | XMS | Encounter Summary ---
Demographics + + + | Address | [address] | | | [place] [address] | + + + | Home Phone | | + + + | Preferred Language | Unknown | + + + | Marital Status | | + + + | Jew Affiliation | 1013 | + + + | Race | Unknown | + + + | Ethnic Group | Unknown | + + + Author + + + | Author | [facility] | | | and [place] | + + + | Organization | [facility] | | | [...] Team Providers + +------+ + | Care Orthopedic Rn Name | Role | Phone | + +------+ + | Michael Amanda DO | PCP | | + +------+ + Encounter Details +--------+ + + + + | Date | Type | Department | Care Team | Description | +--------+ + + + + | 01/30/ | Hospital | [facility] | Jay Gambino MD | | | 2012 - | Encounter | [facility] | [address] | | | | | CARDIAC TELEMETRY | [address] [place], | | | 01/31/ | | [address] | [place] [address] | | | 2012 | | [place] | [phone] | | | | | [address] | | | | | | [phone] | | | +--------+ + + + [...] + documented as of this encounter Discharge Summaries Carmela Dutta - 01/31/2013 8:44 AM PDT PATIENT NAME: MOE GAY Sex/Age: M / 52Y : 1960 ADMISSION DATE: 01/30/2013 DISCHARGE DATE: 01/31/2013 [id number] / [id number] ADMITTING DIAGNOSES: 1. Symptomatic PVCs. 2. Sinus bradycardia with stable previously placed pacemaker. DISCHARGE DIAGNOSES: 1. Symptomatic PVCs. A. Status post EP study and ablation for ventricular arrhythmia. 2. Stable dual-chamber pacemaker function. 3. Hypertension, stable this admission. PROCEDURES THIS ADMISSION: EP study and ablation for ventricular arrhythmia. The patient had spontaneous PVCs of three predominant morphologies. Please see full dictated report for details. Unfortunately, the patient did have difficulty lying still during the procedure. After repeated attempts at ablation in one particular area, the patient continued to have rare PVCs, although, definitely less than preprocedure. Overall he tolerated the procedure well without significant complication. His pacemaker wa s programmed back to AAIR/DDDR, at a lower rate of 78. Diltiazem was added to his regimen a s well. PERTINENT LABS THIS ADMISSION: Hemoglobin 16, hematocrit 46.8, and platelets 135,000. Whit e count 6.9. Sodium 140, potassium 3.6, creatinine 0.79, BUN 12, glucose 113, GFR greater t trejo 60. DISCHARGE VITAL SIGNS: Blood pressure 112/72, heart rate 71, respiratory rate 16. He was a febrile with normal physical exam. He had mild ecchymosis in the groin area but no hematoma . Telemetry demonstrated paced complexes with occasional PVCs. DISCHARGE MEDICATIONS: A. The patient will resume all of his preadmission medications: 1. Vitamin C 1000 mg a d ay. 2. Aspirin 81 mg a day. 3. Colace 2 tablets daily. 4. Morphine sulfate 30 mg every eight hours. 5. Metoprolol succinate 200 mg daily. 6. Oxycodone HCL 10 mg up to 5 mg a day. 7. Pravastatin 40 mg a day. 8. Phenergan 25 mg b.i.d. 9. Zantac 150, 1 to 2 tabs daily. 10. [place]-3 fatty acids 1000 mg b.i.d. MOE GAY ADM:01/30/13 [id number] 01/31/13 [place] DISCHARGE SUMMARY [id number] [facility] LAKESHIA Barlow [facility] MD Meena Pleitez THIS REPORT IS CONFIDENTIAL AND NOT TO BE RELEASED WITHOUT PROPER AUTHORIZATION. [facility] 11. Valacyclovir 500 mg daily. B. New medication added: Diltiazem CD 180 a day. FOLLOWUP: The patient has a followup appointment on 03/02/2013 at 10:[address] Niles meza at the [facility], [address]. No heavy lifting or driving times 48 hours. YOANA Barlow MD A P [place] #[id number] cc: MD Carmela Pleitez PA-C Electronically Signed 02/06/13 1616 LAKESHIA Barlow Electronically Signed 02/20/13 0731 Jay Gambino MD MOE GAY ADM:01/30/13 [id number] 01/31/13 [place] DISCHARGE SUMMARY [id number] [facility] LAKESHIA Barlow [facility] Jay Gambino MD R THIS REPORT IS CONFIDENTIAL AND NOT TO BE RELEASED WITHOUT PROPER AUTHORIZATION.Sandya lly signed by Jael Brown at 02/20/2013 7:31 AM Carmela Cramer - 02/01/20 13 8:44 AM PDT PATIENT NAME: MOE GAY Sex/Age: M / 52Y : 1960 ADMISSION DATE: 01/30/2013 DISCHARGE DATE: 01/31/2013 [id number] / [id number] ADMITTING DIAGNOSES: 1. Symptomatic PVCs. 2. Sinus bradycardia with stable previously placed pacemaker. DISCHARGE DIAGNOSES: 1. Symptomatic PVCs. A. Status post EP study and ablation for ventricular arrhythmia. 2. Stable dual-chamber pacemaker function. 3. Hypertension, stable this admission. PROCEDURES THIS ADMISSION: EP study and ablation for ventricular arrhythmia. The patient had spontaneous PVCs of three predominant morphologies. Please see full dictated report for details. Unfortunately, the patient did have difficulty lying still during the procedure. After repeated attempts at ablation in one particular area, the patient continued to have rare PVCs, although, definitely less than preprocedure. Overall he tolerated the procedure well without significant complication. His pacemaker wa s programmed back to AAIR/DDDR, at a lower rate of 78. Diltiazem was added to his regimen a s well. PERTINENT LABS THIS ADMISSION: Hemoglobin 16, hematocrit 46.8, and platelets 135,000. Whit e count 6.9. Sodium 140, potassium 3.6, creatinine 0.79, BUN 12, glucose 113, GFR greater t trejo 60. DISCHARGE VITAL SIGNS: Blood pressure 112/72, heart rate 71, respiratory rate 16. He was a febrile with normal physical exam. He had mild ecchymosis in the groin area but no hematoma . Telemetry demonstrated paced complexes with occasional PVCs. DISCHARGE MEDICATIONS: A. The patient will resume all of his preadmission medications: 1. Vitamin C 1000 mg a d ay. 2. Aspirin 81 mg a day. 3. Colace 2 tablets daily. 4. Morphine sulfate 30 mg every eight hours. 5. Metoprolol succinate 200 mg daily. 6. Oxycodone HCL 10 mg up to 5 mg a day. 7. Pravastatin 40 mg a day. 8. Phenergan 25 mg b.i.d. 9. Zantac 150, 1 to 2 tabs daily. 10. [place]-3 fatty acids 1000 mg b.i.d. MOE GAY ADM:01/30/13 [id number] 01/31/13 [place] DISCHARGE SUMMARY [id number] [facility] LAKESHIA Barlow [facility] MD Meena Pleitez THIS REPORT IS CONFIDENTIAL AND NOT TO BE RELEASED WITHOUT PROPER AUTHORIZATION. [facility] 11. Valacyclovir 500 mg daily. B. New medication added: Diltiazem CD 180 a day. FOLLOWUP: The patient has a followup appointment on 03/02/2013 at 10:[address] Niles meza at the [facility], [address]. No heavy lifting or driving times 48 hours. YOANA Barlow MD A P [facility] #[id number] cc: MD Carmela Pleitez PA-C Electronically Signed 02/06/13 1616 LAKESHIA Barlow MOE GAY ADM:01/30/13 [id number] 01/31/13 [place] DISCHARGE SUMMARY [id number] [facility] LAKESHIA Barlow [facility] MD Meena Pleitez THIS REPORT IS CONFIDENTIAL AND NOT TO BE RELEASED WITHOUT PROPER AUTHORIZATION.Electronica lly signed by Jael Brown at 02/06/2013 4:16 PM PDTdocumented in this encounter Medications at Time of Discharge + + + +---------+ + + | Medication | Sig | Dispensed | Refills | Start | End Date | | | | | | Date | | + + + +---------+ + + | Ascorbic Acid | Take 1,000 mg by | | 0 | 04/18/20 | | | (VITAMIN C) 1000 MG [...] + + + +---------+ + + | [place]-3 Fatty | CAPS, one capsule by | [...] | Daily. | | | 12 | 0 | + + + +---------+ + + | cyclobenzaprine | Take 10 mg by mouth | | 0 | | | | (FLEXERIL) 10 mg | 3 times daily as | | | | 3 | | tablet | needed. | | | | | + + + +---------+ + + | diazepam (VALIUM) | Take 5 mg by mouth | | 0 | | | | 5 mg tablet | Daily. | | | | 3 | + + + +---------+ + + | gabapentin | Take 600 mg by mouth | | 0 | | | | (NEURONTIN) 600 MG | 3 times daily. | | | | 4 | | tablet | | | | | | + + + +---------+ + + | glucose blood | Check glucose for | 30 each | 2 | 09/20/20 | | | test strips (ONE | symptomatic | | | 12 | 3 | | TOUCH ULTRA TEST) | hypoglycemia prn | | | | | | strip | | | | | | + + + +---------+ + + | meclizine | Take 1 tablet by | 60 | 3 | 09/09/20 | | | (ANTIVERT) 25 MG | mouth 3 times daily | tablet | | 12 | 3 | | tablet | as needed. | | | | | + + + +---------+ + + | MELATONIN | TABS, at bedtime as | | 0 | 03/09/20 | | | | needed | | | 12 | 8 | + + + +---------+ + + | metoprolol | Take 1 tablet by | 30 | 6 | 12/21/19 | | | succinate | mouth Daily. | tablet | | 13 | 3 | | (TOPROL-XL) 200 MG | | | | | | | 24 hr tablet | | | | | | + + + +---------+ + + | morphine (MS | Take 15 mg by mouth | | 0 | 08/04/20 | | | CONTIN) 15 mg 12 hr | 2 times daily. | | | 12 | 3 | | tablet | | | | | | + + + +---------+ + + | oxyCODONE 10 MG | Take 5-10 mg by | | 0 | | | | TABS | mouth every 4 hours | | | | 3 | | | as needed. | | | | | + + + +---------+ + + | pravastatin | Take 1 tablet by | 90 | 3 | 09/09/20 | | | (PRAVACHOL) 40 MG | mouth nightly. | tablet | | 12 | 4 | | tablet | | [...] +---------+ + + | valACYclovir | Take one by mouth | | 0 | 05/31/20 | | | (VALTREX) 500 mg | every 12 hours for 3 | | | 12 | 3 | | tablet | days, then once | | | | | | | daily thereafter. | | | | | + + + +---------+ + + documented as of this encounter Procedure Notes Jay Gambino MD - 01/30/2013 10:47 AM PDT PATIENT NAME: MOE GAY Sex/Age: M / 52Y : 1960 METERS SUPERINTENDENT: Jay Gambino MD DATE: 01/30/2013 PROCEDURE: 1. Electrophysiology study. 2. 3-D mapping. 3. Isoproterenol administration. 4. CS catheter placement. 5. Ablation for ventricular arrhythmia. HISTORY: Mr. Gay is a 52-year-old gentleman with history of coronary disease, obstructi ve sleep apnea, and very symptomatic PVCs for a number of years. He also has a history of b radycardia with implantation of a pacemaker. He presents today for ablation of his of PVCs. PROCEDURE DETAILS: Informed consent was obtained. The patient was taken to the electrophys iology laboratory in a fasting state. The patient was prepped and draped in the usual steri le fashion. The patient was given IV fentanyl and Versed for sedation. Access was made via the right femoral vein and right femoral artery. In the right femoral vein an 8 Kosovan, 7 Kosovan and 6 Kosovan sheaths were placed, in the right femoral artery an 8 Kosovan sheath was placed. At baseline, the patient was in atrially paced rhythm programmed to AAIR/DDDR at a lower rate limit of 70 beats per minute. Prior to the procedure I reprogrammed his device to AAI at a lower rate limit of 60. His WV interval was 150 ms, QRS 92 ms, QT 352 ms, and at the initiation of procedure his VV was 635 ms. AH interval was 80 ms, HV 47 ms. Cathete rs were advanced in the RV and His positions, as well as the CS position. Pacing and electr ogram analysis were performed from these positions. With ventricular pacing, VA conduction was present with VA Wenckebach cycle length of 300 ms. With atrial pacing, AV Wenckebach o ccurred at 310 ms, AV ERP at 600 ms was less than or equal to 230 ms. AV ERP at a drive tra in of 500 ms was less than or equal to 230 ms. There was no evidence of dual AV lydia physi ology. Atrial ERP at a drive train of 600 ms was 230 ms. Atrial ERP at a drive train of 500 ms was 230 ms. The patient had spontaneous PVCs of three predominant morphologies. PVC one was a left bundle branch block morphology, transition in V3 left inferior access p ositive in one, isoelectric in aVL. PVC two, which was seen the most frequently, was a left bundle branch block morphology, PV C transition in V3, positive in 1, positive in aVL with a small T wave in front of aVL. PVC three was a left bundle branch block morphology transitioning to V3. V3 was more posit rudolph than the previous PVCs. The access was directed more MOE GAY ADM:10/04 [id number] 01/31/13 [place] CARDIAC PROCEDURE REPORT [id number] [facility] Jay Gambino MD E-Sign: [facility] THIS REPORT IS CONFIDENTIAL AND NOT TO BE RELEASED WITHOUT PROPER AUTHORIZATION. [facility] inferior than the prior PVCs but still left inferior access. A standard curve Blazer catheter was advanced to the right ventricular outflow tract. A 3- D geometry of the right ventricle was made. Activation mapping was performed using the 3-D mapping system (NavX). Earliest activation signal was at best 30 ms early. With attempted e nergy delivery from the Blazer catheter we were unable to get good energy. This was then e xchanged out for an F-curve ThermoCool irrigated catheter. With mapping, again earliest act ivation was 30 ms. This was along the posterior free wall. Mapping around that area did not show any earlier activation. Ablation was performed in this lesion. Initial lesions had ac celeration of the rhythm followed by termination. However, the patient did not tolerate th e ablation very well. Despite large amounts of sedation and coaching the patient through it he was unable to be still for more than about 15 seconds with each ablation lesion. After repeated attempts at ablation in this area to create a chari, we continued to have some r are PVCs, definitely less than the initial; however, I felt we were unable to safely perfor m more ablation as the patient would move and our catheter would drop and there was concer n for causing perforation or damage to the His conduction system. At this point, as the pat ient was still having rare PVCs, it was decided to do a quick map in the left ventricle and coronary cusps. Access was made via the right femoral artery. An [address] The patient was given 8000 units of heparin and the ThermoCool catheter was then advanc ed to the cusps. Mapping was performed in all three cusps. There was no early activation pr ior to QRS. Earliest coming over to the cusps was in the right coronary cusp. The patient w as given isoproterenol up to 1 mcg per minute during the procedure to induce further PVCs. At this point it was decided to stop the procedures as the patient would not tolerate well further ablation in the right ventricle and we could not find any earlier signals other th an the 30 ms that we found there. The sheaths were sewn in with plan to remove the sheaths when his ACT is less than 200. His device was programmed back to AAIR/DDDR at a lower rate limit of 70 beats per minute. I will start the patient on diltiazem and we will see if on telemetry he continues to have PVCs at high burden or if this helps. MONA GAY ADM:01/30/13 [id number] 01/31/13 [place] CARDIAC PROCEDURE REPORT [id number] [facility] Jay Gambino MD E-Sign: [facility] THIS REPORT IS CONFIDENTIAL AND NOT TO BE RELEASED WITHOUT PROPER AUTHORIZATION. [facility] Jay Gambino MD A A /[facility] #[id number] cc: Jay Gambino MD Electronically Signed 02/16/13 1100 Jay Gambino MD MONA GAY ADM:01/30/13 [id number] 01/31/13 [place] CARDIAC PROCEDURE REPORT [id number] [facility] Jay Gambino MD E-Sign: [facility] THIS REPORT IS CONFIDENTIAL AND NOT TO BE RELEASED WITHOUT PROPER AUTHORIZATION.Sandya marcello signed by Jael Brown at 02/16/2013 11:07 AM PDTdocumented in this encounter Plan of Treatment +--------+ [...] [place], | | | | | | [place] [address] | | | | | | [phone] | | | | | | | | +--------+ + + + + documented as of this encounter Procedures + +--------+ + + + | Procedure Name | Priori | Date/Time | Associated Diagnosis | Comments | | | ty | | | | + +--------+ + + + | ACTIVATED CLOTTING | Routin | 01/30/2013 | | Results for this | | TIME | e | 1:03 PM | | procedure are in the | | | | PDT | | results section. | + +--------+ + + + | CBC NO DIFFERENTIAL | Routin | 01/30/2013 | | Results for this | | | e | 5:58 AM | | procedure are in the | | | | PDT | | results section. | + +--------+ + + + | BASIC METABOLIC | Routin | 01/30/2013 | | Results for this | | PANEL | e | 5:58 AM | | procedure are in the | | | | PDT | | results section. | + +--------+ + + + documented in this encounter Results Activated clotting time (01/30/2013 1:03 PM PDT) + +-------+ + + + | Component | Value | Ref Range | Performed | Pathologist | | | | | At | Signature | + +-------+ + + + | Activated | 151 | 105 - 167 sec | [facility] | | | Clotting | | | [facility] | | | Time | | | HEART | | | | | | MEDICAL | | | | | | CENTER | | | | | | LABORATORY | | + +-------+ + + + + + | Specimen | + + | | + + + + + + + | Performing | Address | City/State/Zipcode | Phone Number | | Organization | | | | + + + + + | [facility] | [address] | [place] [address] | | | [facility] | | | | | LABORATORY | | | | + + + + + | [facility] | | | | | [facility] | | | | | LABORATORY | | | | + + + + + CBC no Differential (01/30/2013 5:58 AM PDT) + +---------+ + + + | Component | Value | Ref Range | Performed | Pathologist | | | | | At | Signature | + +---------+ + + + | White Blood | 6.9 | 3.8 - 11.0 K/uL | [facility] | | | Cells | | | [facility] | | | | | | HEART | | | | | | MEDICAL | | | | | | CENTER | | | | | | LABORATORY | | + +---------+ + + + | Red Blood | 4.90 | 4.20 - 5.70 | [facility] | | | Cells | | M/uL | [facility] | | | | | | HEART | | | | | | MEDICAL | | | | | | CENTER | | | | | | LABORATORY | | + +---------+ + + + | Hemoglobin | 16.0 | 13.2 - 17.0 | [facility] | | | | | g/dL | [facility] | | | | | | HEART | | | | | | MEDICAL | | | | | | CENTER | | | | | | LABORATORY | | + +---------+ + + + | Hematocrit | 46.8 | 39.0 - 50.0 % | [facility] | | | | | | [facility] | | | | | | HEART | | | | | | MEDICAL | | | | | | CENTER | | | | | | LABORATORY | | + +---------+ + + + | MCV | 95.4 | 80.0 - 100.0 fL | [facility] | | | | | | [facility] | | | | | | HEART | | | | | | MEDICAL | | | | | | CENTER | | | | | | LABORATORY | | + +---------+ + + + | MCH | 32.7 | 27.0 - 34.0 pg | [facility] | | | | | | [facility] | | | | | | HEART | | | | | | MEDICAL | | | | | | CENTER | | | | | | LABORATORY | | + +---------+ + + + | MCHC | 34.3 | 32.0 - 35.5 | [facility] | | | | | g/dL | [facility] | | | | | | HEART | | | | | | MEDICAL | | | | | | CENTER | | | | | | LABORATORY | | + +---------+ + + + | RDW-CV | 13.1 | 11.0 - 15.5 % | [facility] | | | | | | [facility] | | | | | | HEART | | | | | | MEDICAL | | | | | | CENTER | | | | | | LABORATORY | | + +---------+ + + + | Platelet | 135 (L) | 150 - 400 K/uL | [facility] | | | Count | | | [facility] | | | | | | HEART | | | | | | MEDICAL | | | | | | CENTER | | | | | | LABORATORY | | + +---------+ + + + + + | Specimen | + + | | + + + + + + + | Performing | Address | City/State/Zipcode | Phone Number | | Organization | | | | + + + + + | [facility] | [address] | [place] [address] | | | [facility] | | | | | LABORATORY | | | | + + + + + | [facility] | | | | | [facility] | | | | | LABORATORY | | | | + + + + + Basic Metabolic Panel (01/30/2013 5:58 AM PDT) + + + + + + | Component | Value | Ref Range | Performed | Pathologist | | | | | At | Signature | + + + + + + | Na | 140 | 135 - 145 | [facility] | | | | | mmol/L | [facility] | | | | | | HEART | | | | | | MEDICAL | | | | | | CENTER | | | | | | LABORATORY | | + + + + + + | K | 3.6 | 3.5 - 5.0 | [facility] | | | | | mmol/L | [facility] | | | | | | HEART | | | | | | MEDICAL | | | | | | CENTER | | | | | | LABORATORY | | + + + + + + | Cl | 107 | 99 - 109 mmol/L | [facility] | | | | | | [facility] | | | | | | HEART | | | | | | MEDICAL | | | | | | CENTER | | | | | | LABORATORY | | + + + + + + | CO2 | 26 | 21 - 28 mmol/L | [facility] | | | | | | [facility] | | | | | | HEART | | | | | | MEDICAL | | | | | | CENTER | | | | | | LABORATORY | | + + + + + + | Glucose | 113 (H)Comment: Cook Islander | 65 - 99 mg/dL | [facility] | | | | Diabetes Association | | [facility] | | | | diagnostic categories | | HEART | | | | for non adults: | | MEDICAL | | | | Impaired fasting | | CENTER | | | | glucose 100 to 125 | | LABORATORY | | | | mg/dL. A fasting | | | | | | glucose result of 126 | | | | | | mg/dL or greater | | | | | | indicates diabetes if | | | | | | the abnormality is | | | | | | confirmed on a | | | | | | subsequent day. A | | | | | | random glucose result of | | | | | | greater than 200 mg/dL | | | | | | indicates diabetes if | | | | | | the abnormality is | | | | | | confirmed on a | | | | | | subsequent day. | | | | + + + + + + | BUN | 12 | 8 - 25 mg/dL | [facility] | | | | | | [facility] | | | | | | HEART | | | | | | MEDICAL | | | | | | CENTER | | | | | | LABORATORY | | + + + + + + | Creatinine | 0.79Comment: IDMS | 0.70 - 1.30 | [facility] | | | | traceable creatinine | mg/dL | [facility] | | | | | | HEART | | | | | | MEDICAL | | | | | | CENTER | | | | | | LABORATORY | | + + + + + + | Calcium | 9.4 | 8.5 - 10.2 | [facility] | | | | | mg/dL | [facility] | | | | | | HEART | | | | | | MEDICAL | | | | | | CENTER | | | | | | LABORATORY | | + + + + + + | Anion Gap | 7 | 5 - 16 mmol/L | [facility] | | | | | | [facility] | | | | | | HEART | | | | | | MEDICAL | | | | | | CENTER | | | | | | LABORATORY | | + + + + + + | Estimated | >60Comment: GFR <60: | >60 | [facility] | | | GFR | Chronic kidney disease, | ml/min/1.73m2 | [facility] | | | | if found over a 3 month | | HEART | | | | period.GFR <15: Kidney | | MEDICAL | | | | failure.For | | CENTER | | | | Americans, multiply the | | LABORATORY | | | | calculated GFR by 1.210 | | | | + + + + + + + + | Specimen | + + | | + + + + + + + | Performing | Address | City/State/Zipcode | Phone Number | | Organization | | | | + + + + + | [facility] | [address] | [place] [address] | | | [facility] | | | | | LABORATORY | | | | + + + + + | [facility] | | | | | [facility] | | | | | LABORATORY | | | | + + + + + documented in this encounter Visit Diagnoses Not on filedocumented in this encounter"
--- OUTSIDE RECORDS SUMMARY | ~2020-06-03 | XMS | Encounter Summary ---
Demographics + + + | Address | [address] | | | [place] [address] | + + + | Home Phone | | + + + | Preferred Language | Unknown | + + + | Marital Status | | + + + | Mosque Affiliation | 1013 | + + + [...] Team Providers + +------+ + | Care Oil Well Engineer Name | Role | Phone | + +------+ + | Kirk French MD | PCP | | + +------+ + Reason for Visit +--------+--------+ + | Reason | Onset | Comments | | | Date | | +--------+--------+ + | Other | 12/23/ | question about diet medication | | | 2015 | | +--------+--------+ + Encounter Details +--------+ + + + + | Date | Type | Department | Care Team | Description | +--------+ + + + + | 12/23/ | Telephone | [facility] | Daljit Singletary, | Other (question | | 2015 | | CARDIOLOGY [address] | MD [address] [place] | about diet | | | | [place], | [place], | medication) | | | | [place] [address] | [place] [address] | | | | | [phone] | [phone] | | | | | | | [...] this encounter Miscellaneous Notes Telephone Encounter - Darlene Tirado RN - 12/23/2015 3:56 PM PSTFred called, he reports that he has gained about 40 pounds and would like to try Lipozene diet meds. He wonders if this would be ok. It is noted that he has an appointment with Geri next week so he is enco uraged to hold off for now and talk with Geri about it at his appointment. He was agreeable to that ...........................................Darlene Tirado RN on 12/23/15 at 15:57 documented in this encounter Plan of Treatment [...] [place], | | | | | | [place] [address] | | | | | | [phone] | | | | | | | | +--------+ + + + + documented as of this encounter Visit Diagnoses Not on filedocumented in this encounter"
--- OUTSIDE RECORDS SUMMARY | ~2020-06-03 | XMS | Encounter Summary ---
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 | Role | Phone | + +------+ + | Michael Amanda DO | PCP | | + +------+ + Reason for Visit + + + | Reason | Comments | + + + | Follow-up | | + + + | Chest Pain | | + + + | Bradycardia | | + + + Encounter Details +--------+---------+ + + + | Date | Type | Department | Care Team | Description | +--------+---------+ + + + | 05/14/ | Office | [facility] | [place], | Coronary artery | | 2013 | Visit | CARDIOLOGY [address] | [place] [address] | disease (Primary | | | | [facility] [place], | [facility] [place], | Dx); Hypertension; | | | | [place] [address] | [place] [address] | Hyperlipidemia; | | | | [phone] | [phone] | Syncope; Other chest | | | | | | pain; Chest pain | +--------+---------+ + + + Social History [...] + + + | Blood Pressure | 118/82 | 05/14/2014 7:38 AM | | | | | PDT | | + + + + + | Pulse | 62 | 05/14/2014 7:38 AM | | | | | PDT | | + + + + + | Temperature | - | - | | + + + + + | Respiratory Rate | 20 | 05/14/2014 7:38 AM | | | | | PDT | | + + + + + | Oxygen Saturation | - | - | | + + + + + | Inhaled Oxygen | - | - | | | Concentration | | | | + + + + + | Weight | 111.1 kg (245 lb) | 05/14/2014 7:38 AM | | | | | PDT | | + + + + + | Height | 193 cm (6' 4") | 05/14/2014 7:38 AM | | | | | PDT | | + + + + + | Body Mass Index | 29.82 | 05/14/2014 7:38 AM | | | | | PDT | | + + + + + documented in this encounter Progress Notes Janeen Ramirez ARNP - 05/14/2014 7:40 AM PDTFormatting of this note might be different f rom the original. PATIENT NAME: Moe Sanchez : 1960: AGE: 54 y.o. PRIMARY CARE: Michael Amanda DO OUTPATIENT FOLLOW UP VISIT Date of Service: 05/14/2014 HISTORY OF PRESENT ILLNESS: Moe Sanchez is a 54 y.o. 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 He is being seen today for follow up chest pain and palpitations. He was last seen 03/07/2014 at which time he was to continue medical management of his hype rtension and followup with a 2 week blood pressure log in 6 weeks. Since that time, patient states that he has had no energy no desire to continue exercising. He has not had any exer cise for several weeks and he states "I think Im out of shape and that's what I'm short of b reath". He also complaints of chest pain a couple times a week but he cannot relate them to be related to physical activity. He has occasional palpitations but he does not believe it is something that happens on a daily basis or every week. He states that his blood pressur e has normalized more. In a couple locations he also has noticed some leg swelling.. MEDICAL, SURGICAL, AND PERSONAL HISTORY Past Medical, [...] CURRENT MEDICATIONS Outpatient Encounter Prescriptions as of 05/14/2014 Medication Sig Dispense Refill amLODIPine (NORVASC) 5 [...] needed for Chest pain. 25 tablet 12 Benson-3 Fatty Acids (SALMON OIL-1000 PO) CAPS, one capsule by mouth daily twice daily ONE TOUCH DELICA LANCETS MIS Check glucose as needed for hypoglycemia 100 [...] ROS Review of Systems Constitutional: Positive for chills, malaise/fatigue and diaphoresis. Negative for fever an d weight loss. HENT: Positive for nosebleeds and tinnitus. Negative for hearing loss and congestion. Dental Problems = No Eyes: Positive for blurred vision. Negative for double vision. Respiratory: Negative for cough, shortness of breath and wheezing. Cardiovascular: Positive for chest pain, palpitations and leg swelling. Gastrointestinal: Positive for nausea. Negative for vomiting, diarrhea, constipation and bl ood in stool. Genitourinary: Negative for dysuria, urgency, frequency and hematuria. Musculoskeletal: Positive for back pain. Negative for myalgias, joint pain and falls. Gait Problems = Yes Skin: Negative for itching and rash. Neurological: Positive for dizziness, tingling, weakness and headaches. Negative for speech change, seizures and loss of consciousness. Lightheaded = Yes Endo/Heme/Allergies: Bruises/bleeds easily. Psychiatric/Behavioral: Negative for memory loss. The patient is nervous/anxious and has in somnia. OBJECTIVE: PHYSICAL EXAM BP 118/82 | Pulse 62 | Resp 20 | Ht 1.93 m (6' 4") | [...] gallop and no friction rub. Murmur heard. Pulses: Carotid pulses are 2+ on the [...] ECG: Atrial paced rhythm with prolonged A-V conduction heart rate 75 beats per minute LAB RESULTS: LIPID Lab Results Component Value Date TRIG 88 05/27/2012 HDL 42 05/27/2012 LDL 173* 05/27/2012 CHOLHDL 3.1 08/08/2013 LDLEX 96 08/08/2013 HDLEX 51.0* 08/08/2013 TRIGEX 63 08/08/2013 CHOLEX 160 08/08/2013 CHEMISTRY Lab Results Component Value Date GLU 95 01/25/2014 NA 137 01/25/2014 K 3.5* 01/25/2014 CL 105 01/25/2014 CO2 28 01/25/2014 CALCIUM 8.7 01/25/2014 ALKPHOS 52 01/25/2014 AST 26 12/12/2012 ASTEX 35 01/25/2014 ALT 22 12/12/2012 ALTEX 27 01/25/2014 BILITOT 1.4* 01/25/2014 CREA 0.75 04/03/2013 BUN 17 01/25/2014 EGFR >60 04/03/2013 EGFREX >60 01/25/2014 CREEX 0.77 01/25/2014 HEMATOLOGY Lab Results Component Value Date WBC 4.5 04/03/2013 HGB 15.3 04/03/2013 HCT 43.5 04/03/2013 PLT 141* 04/03/2013 HGBEX 16.1 01/25/2014 I reviewed records from phone and blood pressure log for office visit on 03/2014. ASSESSMENT: 1. Noncritical coronary artery disease: A. [...] attenuation cannot completely be ruled out. D. [facility] 12/25/13, shows noncritical coronary artery disease, mild ecstatic change to the le ft main artery, the coronary circulation is right dominant, normal left ventricular size, wa ll thickness and motion, preserved left ventricular systolic function, LVEF is 75%, normal s ystemic blood pressure, successful TR band application to the right radial artery. E. Patient continues to have occasional chest pain at rest and on exertion. However, arian ent denies any increase shortness of breath and he also has a very sedentary lifestyle. He believes that his symptoms are related to the fact that he is not exercising. He is in class II of [place] [employer] functional class. There are no signs or symptoms of overt congestive heart failure. On physical examination there are no signs of fluid overload. P garima is in therapy with statin, aspirin, beta edvin, and nitrates. 2. Symptomatic PVC's [...] ventricular arrhythmia performed by Dr. Gambino at [facility] on 01/30/2013. Patient had spontaneous PVCs from [...] to go back in 3 days to [place] for an attempt of ablation under general [...] of the transmissions. E. Today, patient reports only a couple of episodes with palpitations.. He is in class II of [place] [employer] functional class. There are no signs or symptoms of overt sonya estive heart failure. There is no fluid retention on physical examination. Patient continu es amlodipine and metoprolol. I have actually told the patient that if his palpitations co ntinued to happen we could do a Holter monitor just try to see if her palpitations correlate or not with his rhythm. At this point, patient decides not to proceed until he started exe rcising getting back in shape more often 3. Profound bradycardia associated with dizziness, lightheadedness, and syncope: A. The echocardiogram on 05/25/09 revealed a normal left ventricular size and sys tolic function, LVEF 65 to 70%. B. Medtronic DDD permanent pacemaker implantation on 06/14/[address] Daljit masters. C. Today his device interrogation shows a normal stable function. 4. Hypertension. A. Today blood pressure is well controlled. He was restarted on amlodipine and clonidine for blood pressure control. He did not bring in his blood pressure logs from [facility] 5. Lightheadedness and dizziness/ presyncope: A. Episode [...] followed sequentially at 6 month intervals with nonc ontrast CT of the chest. Prior low back and neck surgeries. Pacemaker. Fatty infiltration of the liver. No renal stenoses or obstructions identified and no evidence of dissection. 2 le ft renal arteries. B. He was recommended the patient will follow up in [address] PLAN: 1. Continue same therapeutic medical regimen. Patient's blood pressure seems to be stabili zed and even though he still continues to have symptoms he does not want to do any medicatio n changes at this moment. He would like to try increasing exercise to see if this will have a positive effect on him 2. Follow up appointment in 2 months or sooner if any concerns I, PARISA Russell, saw this patient under the direct supervision of Daljit Singletary MD Portions of this report were transcribed using voice recognition software. Every effort wa s made to ensure accuracy; however, inadvertent computerized metal mold dresser errors may be pre sent. Electronically signed by: PARISA Russell 05/14/2014 7:40 documented in this encounter Procedure Notes [facility]AN [facility] - 05/14/2014 12:00 AM PDTAssociated Order(s): ECG - EXTERNAL SCANRen elida signed by Randa Melo at 05/17/2014 9:17 AM PDTdocumented in this encounter Plan of [...] [place], | | | | | | [place] [address] | | | | | | [phone] | | | | | | | | +--------+ + + + + + +------+--------+ + + | Name | Type | Priori | Associated Diagnoses | Order Schedule | | | | ty | | | + +------+--------+ + + | ECG 12 lead | ECG | Routin | Coronary artery | Ordered: 05/14/2014 | | | | e | disease Other chest | | | | | | pain | | + +------+--------+ + + documented as of this encounter Procedures + +--------+ + + + | Procedure Name | Priori | Date/Time | Associated Diagnosis | Comments | | | ty | | | | + +--------+ + + + | ECG - EXTERNAL SCAN | | 05/14/2014 | | Results for this | | | | 12:00 AM | | procedure are in the | | | | PDT | | results section. | + +--------+ + + + documented in this encounter Results ECG - EXTERNAL SCAN (05/14/2014 12:00 AM PDT) + + + | Narrative | Performed At | + + + | Ordered by an | | | unspecified provider. | | + + + + + | Transcriptions | + + | Randa Melo - 05/14/2014 12:00 AM PDT | + + documented in this encounter Visit Diagnoses + + | Diagnosis | + + | Coronary artery disease - Primary Coronary atherosclerosis of unspecified type of | | vessel, kalispel or graft | + + | Hypertension Unspecified essential hypertension | + + | Hyperlipidemia Other and unspecified hyperlipidemia | + + | Syncope Syncope and collapse | + + | Other chest pain | + + | Chest pain Chest pain, unspecified | + + documented in this encounter
--- OUTSIDE RECORDS SUMMARY | ~2020-06-03 | XMS | Encounter Summary ---
Demographics + + + | Address | [address] | | | [place] [address] | + + + | Home Phone | | + + + | Preferred Language | Unknown | + + + | Marital Status | | + + + | Latter-Day Affiliation | 1013 | + + + | Race | Unknown | + + + | Ethnic Group | Unknown | + + + Author + + + | Author | [facility] | | | and [place] | + + + | Organization | [facility] | | [...] Team Providers + +------+ + | Care Wire Spooler Name | Role | Phone | + +------+ + | Michael Amanda DO | PCP | | + +------+ + Reason for Referral Evaluate & Treat (Routine) +--------+ + + + + + | Status | Reason | Specialty | Diagnoses / | Referred By | Referred To | | | | | Procedures | Contact | Contact | +--------+ + + + + + | Closed | Specialty | Urology | Diagnoses | Vasiliy, Shanique Rock | | | Services | | Urinary | Michael Cole DO | Miguel Cr MD | | | Required | | frequency | [address] | [address] | | | | | Incontinence | AVE [place] | [place] | | | | | | [place] | [place] | | | | | | [address] | [address] Phone: | | | | | | Phone: | [phone] | | | | | | [phone] | Fax: | | | | | | Fax: | [phone] | | | | | | [phone] | | +--------+ + + + + + Reason for Visit + + + | Reason | Comments | + + + | Medicare Wellness | | + + + Encounter Details +--------+---------+ + + + | Date | Type | Department | Care Team | Description | +--------+---------+ + + + | 07/25/ | Office | [facility] | Michael Amanda, | Preventative health | | 2014 | Visit | [facility] [place] | DO [address] | care (Primary Dx); | | | | [address] | [place] | Cannabis abuse, | | | | [place], [place] | [address] | daily use; Urinary | | | | [address] | | frequency; | | | | [phone] | | Incontinence; | | | | | | Hypothyroid; | | | | | | Screening for | | | | | | prostate cancer; | | | | | | Fatty liver | +--------+---------+ + + + Social History [...] + + + | Blood Pressure | 108/66 | 07/25/2014 2:49 PM | | | | | PDT | | + + + + + | Pulse | 83 | 07/25/2014 2:49 PM | | | | | PDT | | + + + + + | Temperature | 36.6 C (97.9 F) | 07/25/2014 2:49 PM | | | | | PDT | | + + + + + | Respiratory Rate | 16 | 07/25/2014 2:49 PM | | | | | PDT | | + + + + + | Oxygen Saturation | 93% | 07/25/2014 2:49 PM | | | | | PDT | | + + + + + | Inhaled Oxygen | - | - | | | Concentration | | | | + + + + + | Weight | 107 kg (236 lb) | 07/25/2014 2:49 PM | | | | | PDT | | + + + + + | Height | 188 cm (6' 2") | 07/25/2014 2:49 PM | | | | | PDT | | + + + + + | Body Mass Index | 30.3 | 07/25/2014 2:49 PM | | | | | PDT | | + + + + + documented in this encounter Patient Instructions Patient Instructions Michael Amanda, - 07/31/2014 3:16 PM PDTFormatting of this note m ight be different from the original. PREVENTIVE PLAN FOR YOU Name Moe Sanchez Date 07/31/2014 Services Ordered Today: Orders Placed This Encounter Procedures CBC with Differential Standing Status: Future Number of Occurrences: Standing Expiration Date: 07/25/2015 Lipid Panel Standing Status: Future Number of Occurrences: Standing Expiration Date: 07/25/2015 Order Specific Question: Fasting? Answer: Yes [1] TSH Standing Status: Future Number of Occurrences: Standing Expiration Date: 07/25/2015 Comprehensive Metabolic Panel Standing Status: Future Number of Occurrences: Standing Expiration Date: 07/25/2015 Order Specific Question: Fasting? Answer: Yes [1] PSA, Screen Standing Status: Future Number of Occurrences: Standing Expiration Date: 07/25/2015 Ambulatory referral to Urology Referral Priority: Routine Referral Type: Evaluate & Treat Referral Reason: Specialty Services Required Referred to Provider: Miguel Rock MD Requested Specialty: Urology Number of Visits Requested: 1 Medicare Covered Services and Your Long-Term Plan: Preventive Service Frequency Plan Annual Wellness Visit Yearly 1 Year Vaccinations Influenza Vaccine Yearly Next Fall Pneumococcal Vaccine Once Hep B Vaccine Mod/High Risk Once Prostate Cancer PSA Lab Test Yearly Colorectal Cancer Fecal Occult Blood Test Yearly Colonoscopy Every 10 yr Cardiovascular Ultrasound for AAA - IPPE Only FMHX AAA or males age 65-75 With history of tobacco use Once Cholesterol/Lipid Tests Every 5 yr Diabetes Screening Glucose Test Yearly Pre-Diabetes Twice a yr Nutrition Evaluation Varies Additional Covered Services Screening for Glaucoma High Risk Yearly Additional Recommendations: Diet: Tobacco cessation: Exercise: Other: Quick Reference Information documented in this encounter Progress Notes Michael Amanda DO - 07/31/2014 3:02 PM PDTFormatting of this note might be different fro kiara the original. . MEDICARE WELLNESS VISIT : Moe Sanchez is a 54 y.o. male who presents for a Medicare Wellness visit toda y:. And to discuss acute problems with urination and chronic medical issues. SUBSEQUENT MEÑO AL VISIT WITH PPPS (F/U AWV /PPPS) Patient presents for physical exam and preventative health care. In general the patient feels his overall health is : poor Exercise: No: Pt is following a healthy diet : no Colonoscopy: normal 2008. Prostate Cancer screening: No results found for this basename: PSA Last PSA was normal done at in her path. In the skin the documents High risk for STD: no Immunizations: Immunization History Administered Date(s) Administered Tdap 08/17/2011 Incontinence Patient complains of incontinence. Has had recent MRI. MRI was reviewed by Dr. Demarco showing no evidence of cauda equina or lum bar cause for his incontinence. Patient states that he has urinary frequency. Denies diabetes. Patient gets up 5-6 times a night to urinate. Sometimes doesn't make it. Most of his incontinence and urge incontine nce where he doesn't make it to the bathroom and time. States his urine stream is good. Fernandes s not had a recent prostate exam. He has not seen a urologist. Postvoid residual done today this appointment with only 50 mL of residual urine Patient has chronic back pain and sees pain clinic. He has been able to wean off of his Di laudid. He feels better. Pain is stable. He thought that weaning off the Dilaudid but help his urination but it has not. Hypertension: Control and Compliance Medication compliance: good Home Blood Pressures: controlled Exercise: none BP: 108/66 mmHg Pt denies: No headache, visual symptoms, neurologic problems, syncope No chest pain, palpitations, BENSON, orthopnea, PND, peripheral edema No side effects from any antihypertensive medications HYPERLIPIDEMIA: Patient is compliant with medications. Diet: Low fat, low carb dietary compliance:fair to poor Denies side effects of medications. Denies Myalgias, abdominal pain, jaundice, constipatio n. No evidence of medication toxicity Denies chest pain, shortness of breath Additional measures started by the patient to reduce lipids include: aerobic exercise :none Lab Results Component Value Date LDL 173* 05/27/2012 coronary artery disease Recent history: taking medications as instructed, no medication side effects noted, no TIA' s, no chest pain on exertion, no dyspnea on exertion and no swelling of ankles. Patient's sy mptoms have been unchanged. Medication side effects include: none. 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 HTN (hypertension) Hypercholesterolemia Bipolar 1 disorder (HCC) Insomnia Chronic neck pain Depression Hyperlipidemia BIPOLAR DISORDER UNSPECIFIED Anxiety depression Tobacco user Hypertension Nondependent opioid abuse in remission CAD Fibromyalgia Lumbago Chronic pain syndrome Thrombocytopenia (HCC) 08/26/2010 Fatigue 09/15/2010 Abdominal pain, unspecified site 07/17/2011 Neck pain, chronic 09/24/2011 Syncope 10/09/2010 Obstructive sleep apnea 08/26/2010 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 CENTRAL SLEEP APNEA CONDS CLASSIFIED ELSEWHERE 12/15/2010 Ulcerative colitis (HCC) Chest pain SINUS BRADYCARDIA HEPATITIS B PUD FATTY LIVER DISEASE SUBSTANCE ABUSE, MULTIPLE Preventative health care 06/26/2013 LAST PSA:12/16/2010 RESULT:0.14 LAST COLONOSCOPY:02/05/2009 RESULTnormal exam Past Family History: Family History Problem Relation Age of Onset Cancer Father colon,prostate Social History: Patient Status: [2]. Amauris Tobacco Use: History Smoking status Former Smoker Types: Cigars Quit date: 06/12/2009 Smokeless tobacco Never Used Comment: 1 cigar twice a year for 30 (when he went fishing) . Amauris alcohol use: History Alcohol Use No . Moe exercises has limited mobility and can not participate in aerobic exercise. He wa tches his diet for sodium, low fat and low cholesterol. Today's Visit: Current Outpatient Prescriptions Medication Sig Dispense Refill amLODIPine (NORVASC) 5 mg tablet Take 2 tablets by mouth Daily. 60 tablet 6 Ascorbic Acid (VITAMIN C) 1000 MG tablet Take 1,000 mg by mouth Daily. aspirin 81 MG tablet Take 81 mg by mouth Daily. clonidine (CATAPRES) 0.2 MG tablet Take 1 tablet by mouth 3 times daily. 90 tablet 4 diltiazem (CARDIZEM CD) 120 mg 24 hr capsule TAKE ONE CAPSULE BY MOUTH EVERY DAY 30 ca psule 5 diphenhydrAMINE (BENADRYL) 25 MG capsule Take 25 mg by mouth as needed. dronabinol (MARINOL) 10 MG capsule Take 10 mg by mouth 2 times daily (before meals). glucose blood test strips (ONE TOUCH ULTRA TEST) strip Check glucose for symptomatic hypoglycemia prn 30 each 2 isosorbide mononitrate (IMDUR) 30 mg ER tablet [...] needed for Chest pain. 25 tablet 12 [place]-3 Fatty Acids (SALMON OIL-1000 PO) CAPS, one capsule by mouth daily twice daily ONE TOUCH DELICA LANCETS [facility] Check glucose as needed for hypoglycemia 100 each 3 pantoprazole (PROTONIX) 40 mg tablet Take 1 tablet by mouth Daily. 30 tablet 6 pravastatin (PRAVACHOL) 40 MG tablet take 1 tablet by mouth once daily 90 tablet 1 promethazine (PHENERGAN) 25 mg tablet Take 25 mg by mouth every 8 hours as needed. tolterodine (DETROL LA) 2 mg 24 hr capsule Take 1-2 capsules by mouth Daily. Start with one 2 mg capsule and increase to 4 mg if needed. 60 capsule 2 UNCODED MEDICATION Diagnosis: Obstructive Sleep Apnea ICD-9: 327.23 Length of Need: 99 Months 1 Device 0 valACYclovir (VALTREX) 500 mg tablet Take 1 tablet daily 90 tablet 3 Allergies Allergen Reactions Alcohol-Fentanyl Clarithromycin Duloxetine Hydrocodone Penicillins Tramadol Hcl Current list of Providers and DME Suppliers Patient Care Team: Michael Amanda DO as PCP - General (Family Medicine) PARISA Velazquez (Nurse Practitioner) Daljit Singletary MD as Physician (Cardiology) PARISA Russell as Nurse Practitioner (Cardiology) FENG Chou (Physician Restaurant Crew) Current Medicare Suppliers: [id number] - [place], [place] - [address] [place] [address] [facility] - [place], [place] - [address] [place] [address] HEALTH RISK ASSESSMENT: : The patient or their surrogate filled out the HRA and the responses were incorporated into the notes below. General Health 1. How do you describe your current health? poor 2. Has it been longer than a year since your last dental exam? yes 3. Has it been longer than a year since your last eye exam? No 4. Have you quit driving? No 5. Do you use a seatbelt less than 100% of the time? No Hearing Loss Screen 1. Do you have trouble hearing the television or radio when others do not? yes 2. Do you have to strain or struggle to hear/understand conversations? yes Functional Screen 1. Do you need help with dressing, eating, voiding or toileting and transferring oneself fr om seated to standing and getting in and out of bed? No 2. Do you need help with preparing meals, transportation, shopping, taking your medicine, m anaging your finances, or other activities of daily living? No 3. Do you live alone? No Home Safety Screen 1. Does your home have throw rugs, poor lighting, or a slippery bathtub/shower? No 2. Does your home have inadequate grab bars in bathrooms, handrails on stairs and steps? No 3. Does your home not have functioning smoke alarms? No Risk for Falls Screen 1. Have you fallen in the past 6 months? No 2. Do you ever feel like you might lose your balance? No 3. Did the patient pass the "get up and go" test? yes Depression Screen PHQ-2 1. Over the past two weeks, have you felt down, depressed or hopeless? No 2. Over the past two weeks, have you felt little interest or pleasure in doing things? No Health Risk Appraisal : Health Risk Assessment Form was reviewed with the patient and recommendations made to Gayla Sanchez based on his risk factors. Immunizations Immunization History Administered Date(s) Administered Tdap 08/17/2011 Preventive Care and Screening: : The following health maintenance items are reviewed in Epic and correct as of today: Health Maintenance Topic Date Due Influenza Vaccine (Yearly) 06/22/2014 Ldl Cholesterol (Yearly) 07/26/2015 Colon Cancer Screening (Colonoscopy Every 10 Years 50-75) 02/05/2019 Recommendations: : Diet: Reduce saturated fat, "trans" monounsaturated fatty acids, and cholesterol Services Recommended: Colonoscopy - No order of COLONOSCOPY is found. Last order of ENDOSCOPY, COLON, DIAGNOSTIC was found on 02/05/2009 from Abstract on 2 , PSA - Last order of PSA, SCREEN was found on 07/25/2014 from Office Visit on 07/25/2014 , Immunizations - Immunization History Administered Date(s) Administered Tdap 08/17/2011 and Immunizations Review of Systems : : Review of Systems A comprehensive review of systems was negative except for: chronic back pain, incontinence, urge incontinence, urinary frequency, nocturia. Chronic back pain, fatigue, Physical Exam: : Vitals: BP 108/66 | Pulse 83 | Temp 36.6 C (97.9 F) (Temporal) | Resp 16 | Ht 1.88 m ( 6' 2") | Wt 107.049 kg (236 lb) | BMI 30.29 kg/m2 | SpO2 93% BMI: Body mass index is 30.29 kg/(m^2). Vision Screening and Audiometry Results: No exam data present Detection of Cognitive Impairment (Mini-Cog) No evidence of cognitive impairment Constitutional: Well developed, well nourished, no acute distress, non-toxic appearance Eyes: PERRL, conjunctiva normal HENT: Atraumatic, external ears normal, nose normal, oropharynx moist, no pharyngeal exuda marcos. Neck- normal range of motion, no tenderness, supple Respiratory: No respiratory distress, normal breath sounds, no rales, no wheezing Cardiovascular: Normal rate, normal rhythm, no murmurs, no gallops, no rubs GI: Soft, nondistended, normal bowel sounds, nontender, no organomegaly, no mass, no rebou nd, no guarding : No costovertebral angle tenderness Prostate is nontender. Guaiac negative. No sign ificant hypertrophy noted. No nodules Musculoskeletal: No edema, no tenderness, positive for back tenderness on palpation with r educed range of motion No foot drop Reflexes are intact Integument: Well hydrated, no rash Lymphatic: No lymphadenopathy noted Neurologic: Alert & oriented x 3, CN 2-12 normal, normal motor function, normal sensory fu nction, no focal deficits noted Psychiatric: Speech and behavior appropriate Assessment and Plans: : ICD-9-CM 1. Preventative health care V70.0 CBC with Differential Lipid Panel TSH Comprehensive Metabolic Panel PSA, Screen Diet reviewed Exercise reviewed Reviewed preventive care protocols Scheduled due services, Colonoscopy is up-to-date Updated immunizations. Preventive services Plan and appropriate handouts given 2. Cannabis abuse, daily use 305.21 Counseled on quitting 3. Urinary frequency 788.41 tolterodine (DETROL LA) 2 mg 24 hr capsule Ambulatory referral to Urology Patient is been referred to urology. Postvoid residual was unremarkable today. MRI did not show signs of cauda equina or spinal stenosis. He will try Detrol overactive bladder tr eatment. Followup if not improving. We discussed the risks and benefits of this medication 4. Incontinence 788.30 tolterodine (DETROL LA) 2 mg 24 hr capsule Ambulatory referral to Urology 5. Hypothyroid 244.9 TSH Recheck thyroid 6. Screening for prostate cancer V76.44 PSA, Screen Prostate cancer screening discussed with the prostate exam done today and followup PSA or dered last PSA was normal. 7. Fatty liver 571.8 Lipid Panel Comprehensive Metabolic Panel A Personalized Care Plan for Mr. Sanchez has been established and reviewed with patient an d made available to the patient. End of Life Discussion: Voluntary Discussion the Advanced Directives and Advanced Care Planning was discussed as no kevin in the usual sections in [employer]. documented in this en counter Miscellaneous Notes Miscellaneous - ONDAVON VAZQUEZ - 07/25/2014 12:00 AM PDT documented in this encounter Plan of Treatment [...] W | | | | | | [place], | | | | | | [place] [address] | | | | | | [phone] | | | | | | | | +--------+ + + + + + +------+--------+ + + | Name | Type | Priori | Associated Diagnoses | Order Schedule | | | | ty | | | + +------+--------+ + + | CBC with | Lab | Routin | Preventative | 1 Occurrences | | Differential | | e | health care | starting 07/25/2014 | | | | | | until 07/25/2015 | + +------+--------+ + + | Lipid Panel | Lab | Routin | Preventative | 1 Occurrences | | | | e | health care Fatty | starting 07/25/2014 | | | | | liver | until 07/25/2015 | + +------+--------+ + + | TSH | Lab | Routin | Preventative | 1 Occurrences | | | | e | health care | starting 07/25/2014 | | | | | Hypothyroid | until 07/25/2015 | + +------+--------+ + + | Comprehensive | Lab | Routin | Preventative | 1 Occurrences | | Metabolic Panel | | e | health care Fatty | starting 07/25/2014 | | | | | liver | until 07/25/2015 | + +------+--------+ + + | PSA, Screen | Lab | Routin | Preventative | 1 Occurrences | | | | e | health care | starting 07/25/2014 | | | | | Screening for | until 07/25/2015 | | | | | prostate cancer | | + +------+--------+ + + + + +--------+ + + | Name | Type | Priori | Associated Diagnoses | Order Schedule | | | | ty | | | + + +--------+ + + | Ambulatory referral | Outpatient | Routin | Urinary frequency | Ordered: 07/26/2014 | | to Urology | Referral | e | Incontinence | | + + +--------+ + + documented as of this encounter Visit Diagnoses + + | Diagnosis | + + | Preventative health care - Primary Routine general medical examination at a [facility] | | care facility | + + | Cannabis abuse, daily use Cannabis abuse, continuous | + + | Urinary frequency | + + | Incontinence Unspecified urinary incontinence | + + | Hypothyroid Unspecified hypothyroidism | + + | Screening for prostate cancer Special screening for malignant neoplasm of prostate | + + | Fatty liver Other chronic nonalcoholic liver disease | + + documented in this encounter
--- OUTSIDE RECORDS SUMMARY | ~2020-06-03 | XMS | Encounter Summary ---
Demographics + + + | Address | [address] | | | [place] [address] | + + + | Home Phone | | + + + | Preferred Language | Unknown | + + + | Marital Status | | + + + | Advent Affiliation | 1013 | + + + [...] Team Providers + +------+ + | Care Block Cableman Name | Role | Phone | + +------+ + | Kirk French MD | PCP | | + +------+ + Encounter Details +--------+ + + + + | Date | Type | Department | Care Team | Description | +--------+ + + + + | 01/18/ | Hospital | [facility] | Conversion | Diagnosis unknown | | 2017 | Encounter | CONVERSION [address] | Transaction, | | | | | [address] | Provider Unknown | | | | | [place], [place] | [phone] | | | | | [address] | | | | | | [phone] | | | +--------+ + + + [...] + + + +---------+ + + | [place]-3 Fatty | CAPS, one capsule by | | 0 | //20 | | | Acids (SALMON | mouth [...] W | | | | | | [place] [place], | | | | | | [place] [address] | | | | | | [phone] | | | | | | | [...]
--- OUTSIDE RECORDS SUMMARY | ~2020-06-03 | XMS | Encounter Summary ---
Demographics + + + | Address | [address] [place] [address] [address] | | | [place] [address] | + + + | Home Phone | | + + + | Preferred Language | Unknown | + + + | Marital Status | | + + + | Restorationist Affiliation | Unknown | + + + | Race | White | + + + | Ethnic Group | Not or | + + + Author + + + | Author | [facility] | + + + | Organization | [facility] | + + + | Address | Unknown | + + + | Phone | Unavailable | + + + Support + + + + + | Name | Relationship | Address | Phone | + + + + + | Rachel Valencia | ELIEZER | [place] | | | | | [address] | | + + + + + Care Team Providers + +------+ + | Care Chief Information Security Officer Name | Role | Phone | + [...] | | Department | Diarrhea, | Bridgette Esocbar MD | Epic Dept | | | | | unspecified | [address] | | | | | | type | Ave | | | | | | Unintentiona | [place], [place] | | | | | | l weight | [address] | | | | | | loss | Phone: | | | | | | Procedures | [phone] | | | | | | CONSULT TO | Fax: | | | | | | NON - IVETTE | [phone] | | | | | | PROVIDER [...] | | 2019 | | Center at [facility] [address] | MD [address] | normal, recommend | | | | [address] | [place], [place] | hyoscyamine) | | | | for Health and | [address] | | | | | [facility] | [phone] | | | | | [facility] [place] | | | | | | [address] | | | | | | [phone] | | | +--------+ + + + [...]
--- OUTSIDE RECORDS SUMMARY | ~2020-06-03 | XMS | Encounter Summary ---
Demographics + + + | Address | [address] | | | [place] [address] | + + + | Home Phone | | + + + | Preferred Language | Unknown | + + + | Marital Status | | + + + | Uatsdin Affiliation | 1013 | + + + | Race | Unknown | + + + | Ethnic Group | Unknown | + + + Author + + + | Author | [facility] | | | and [place] | + + + | Organization | [facility] | | [...] Team Providers + +------+ + | Care Shoder Filler Name | Role | Phone | + +------+ + | Kirk French MD | PCP | | + +------+ + Reason for Visit + +--------+ + | Reason | Onset | Comments | | | Date | | + +--------+ + | Medication | 07/27/ | | | Recommendations | 2019 | | + +--------+ + Encounter Details +--------+ + + + + | Date | Type | Department | Care Team | Description | +--------+ + + + + | 07/27/ | Telephone | [facility] | Emmanuel Daniel MD | Medication | | 2019 | | GASTROENTEROLOGY | [address] [place] | Recommendations | | | | [address] [place] | [address] [place], [place] | | | | | [address] [place], [place] | [address] | | | | | [address] | | | | | | [phone] | | | +--------+ + + + [...] Telephone Encounter - Kaylynn Copeland RN - 07/28/2019 1:02 PM PDTLeft message for lala carlos that on his medication list he has hyoscyamine/Levsin sublingual also has Bentyl, also has Lomotil. ele phone Encounter - Monica Kenny - 07/27/2019 4:37 PM PDTPatient called in to ask for a prescription from Dr. Daniel on a pill that helps with his nausea. He said it is a green pill that disolves under tongue and it is the only one that works. He said there ER filled it th e first time so he can't call in to the pharmacy for a refill. He said he would call us ron arellano with the specific name. P M PDTdocumented in this encounter Plan of Treatment [...] | | | | | | [place] [address] | | | | | | [phone] | | | | | | | | +--------+ + + + + documented as of this encounter Visit Diagnoses Not on filedocumented in this encounter"
--- OUTSIDE RECORDS SUMMARY | ~2020-06-03 | XMS | Encounter Summary ---
Demographics + + + | Address | [address] | | | [place] [address] | + + + | Home Phone [...] Providers + +------+ + | Care Automotive Porter Name | Role | Phone | + +------+ + | Kirk French MD | PCP | | + +------+ + Encounter Details +--------+ + + + + | Date | Type | Department | Care Team | Description | +--------+ + + + + | 12/24/ | Orders Only | [facility] | Conversion | | | 2018 | | [facility] | Transaction, | | | | | PRIMARY CARE [address] | Provider Unknown | | | | | LORA WU | [phone] | | | | | [place] | | | | | | [address] | | | | | | [phone] | | | +--------+ + + + [...] | | | | | | [place] [address] | | | | | | [phone] | | | | | | | [...] This external order was created through the Results Console. | EXTERNAL LAB | | [facility] | | + + + + [...]
--- OUTSIDE RECORDS SUMMARY | ~2020-06-03 | XMS | Encounter Summary ---
Demographics + + + | Address | [address] | | | [place] [address] | + + + | Home Phone [...] Team Providers + +------+ + | Care Assistant Director Of Residence Life Name | Role | Phone | + [...] | | | | [place] | [phone] | | | | | [address] | | | | | | [phone] | | | +--------+ + + + [...] + + + +---------+ + + | [place]-3 Fatty | CAPS, one capsule by | [...] | | | | | | | #[id number], exp 07/2016 | | | | | [...] W | | | | | | [place], | | | | | | [place] [address] | | | | | | [phone] | | | | | | | | +--------+ + + + + documented as of this encounter Procedures + +--------+ + + + | Procedure Name | Priori | Date/Time | Associated Diagnosis | Comments | | | ty | | | | + +--------+ + + + | FL C ARM < 1 HOUR | Routin | 04/22/2012 | | Results for this | | | e | 11:32 PM | | procedure are in the | | | | PDT | | results section. | + +--------+ + + + documented in this encounter Results FL Sharee-Bora < 1 Hour (04/22/2012 11:32 PM PDT) + + | Specimen | [...]
--- OUTSIDE RECORDS SUMMARY | ~2020-06-03 | XMS | Encounter Summary ---
Demographics + + + | Address | [address] | | | [place] [address] | + + + | Home Phone [...] Team Providers + +------+ + | Care Cosmetic Assembler Name | Role | Phone | + +------+ + | Kirk French MD | PCP | | + +------+ + Reason for Visit +--------+ + | Reason | Comments | +--------+ + | Other | PVC's | +--------+ + Evaluate & Treat (Routine) +--------+--------+ + + + + | Status | Reason | Specialty | Diagnoses / | Referred By | Referred To | | | | | Procedures | Contact | Contact | +--------+--------+ + + + + | Closed | | Cardiology | Diagnoses | | Immanuel, | | | | | Symptomatic | Silvia, | MD Jay [address] | | | | | PVCs | PARISA Veronn | [address] | | | | | Procedures | [address] | [address] | | | | | DE OFFICE | [place] | [place] | | | | | CONSULTATION | [place], | [address] Phone: | | | | | NEW/ESTAB | [place] | [phone] | | | | | PATIENT 39 | [address] | Fax: | | | | | MIN | Phone: | [phone] | | | | | | [phone] | | | | | | | Fax: | | | | | | | [phone] | | +--------+--------+ + + + + Encounter Details +--------+---------+ + + + | Date | Type | Department | Care Team | Description | +--------+---------+ + + + | 11/30/ | Office | [facility] | Jay Gambino MD | Symptomatic PVCs | | 2015 | Visit | [facility] | [address] | (Primary Dx) | | | | [address] | [address] [place], | | | | | [address] | [place] [address] | | | | | [address] | [phone] | | | | | [phone] | | | +--------+---------+ + + + [...] + + + | Blood Pressure | 120/90 | 11/30/2014 3:17 PM | left | | | | PST | | + + + + + | Pulse | 72 | 11/30/2014 3:17 PM | reg | | | | PST | | [...] + + + + | Weight | 113.4 kg (250 lb) | 11/30/2014 3:17 PM | | | | | PST | | + + + + + | Height | 193 cm (6' 4") | 11/30/2014 3:17 PM | | | | | PST | | + + + + + | Body Mass Index | 30.43 | 11/30/2014 3:17 PM | | | | | PST | | + + + + + documented in this encounter Progress Notes Jay Gambino MD - 11/30/2014 5:37 PM PST [facility] [address] [place], [place] [id number] Patient Name: Moe Sanchez Date: 1960 Date of Service: 11/30/2014 CHIEF COMPLAINT: Followup PVCs ASSESSMENT AND PLAN Symptomatic PVCs Symptomatically, the patient has been doing well. He does have symptoms of anxiety. He paulino s not noted specific premature ventricular contractions. When I looked at his device he has had just over 200 PVCs over a 40 day period. This is about 5 PVCs per day. Overall, I thi nk his ablation with great success and he has done very well. We'll have him return on an a s-needed basis. Return if symptoms worsen or fail to improve. HISTORY OF PRESENT ILLNESS 54 y.o. year old male with a history of mild coronary artery disease hypertension, symptoma tic bradycardia status post pacemaker, frequent premature ventricular contractions underwent ablation procedure in spring. The patient has had no symptomatic recurrence of his premature ventricular contractions. However, an increase in the number of PVCs was noted o n a recent pacemaker interrogation. The patient states that he will get a sensation of full ness in his chest at times which she associates with anxiety. He has been very active over this last year and going hunting and other activities without difficulty. Current Outpatient Prescriptions Medication Sig 5-Hydroxytryptophan (5-HTP) 100 MG CAPS Take by mouth 2 (two) times daily. amLODIPine (NORVASC) 5 mg tablet take 2 tablets by mouth once daily Ascorbic Acid (VITAMIN C) 1000 MG tablet Take 1,000 mg by mouth Daily. aspirin 81 MG tablet Take 81 mg by mouth Daily. cholecalciferoL (VITAMIN D-3) 1,000 units CAPS capsule Take by mouth. clonidine (CATAPRES) 0.2 MG tablet Take 1 tablet by mouth 3 times daily. diphenhydrAMINE (BENADRYL) 25 MG capsule Take 25 mg by mouth as needed. dronabinol (MARINOL) 10 MG capsule Take 10 mg by mouth 2 times daily (before meals). EMMA VELÁSQUEZ 550 MG CAPS Take by mouth. LORazepam (ATIVAN) 1 mg tablet 1/2 to 1 tab up to three times per day prn MELATONIN TABS, at bedtime as needed Methylsulfonylmethane (MSM) 1000 MG TABS Take by mouth 2 (two) times daily. metoprolol succinate (TOPROL-XL) 200 mg ER tablet Take 1 tablet by mouth Daily. [facility] Natural Products (OSTEO BI-FLEX/5-LOXIN ADVANCED PO) Take by mouth. Takes 2 table ts in the morning and 2 tablets at night Nattokinase 100 MG CAPS Take by mouth 2 (two) times daily. nitroglycerin (NITROSTAT) 0.[address] 1 tablet under the tongue every 5 luz marcos as needed for Chest pain. [place]-3 Fatty Acids (SALMON OIL-1000 PO) CAPS, one capsule by mouth daily twice daily ONE TOUCH DELICA LANCETS [facility] Check glucose as needed for hypoglycemia pantoprazole (PROTONIX) 40 mg tablet Take 1 tablet by mouth Daily. pravastatin (PRAVACHOL) 40 MG tablet take 1 tablet by mouth once daily promethazine (PHENERGAN) 25 mg tablet Take 25 mg by mouth every 8 hours as needed. UNCODED MEDICATION Diagnosis: Obstructive Sleep Apnea ICD-9: 327.23 Length of Need: 99 Months valACYclovir (VALTREX) 500 mg tablet take 1 tablet by mouth once daily Allergies Allergen Reactions Alcohol-Fentanyl Clarithromycin Duloxetine Hydrocodone Penicillins Tramadol Hcl Moe has a past medical history of Lower back injury (1980 1984); Hypoglycemia; Drug addiction in remission ([facility]); HTN (hypertension); Hypercholesterolemia; Bipolar 1 disorder ( [facility]); Insomnia; Chronic neck pain; Depression; Hyperlipidemia; BIPOLAR DISORDER UNSPECIFIED; Anxiety depression; Tobacco user; Hypertension; Nondependent opioid abuse in remission; CAD ; Fibromyalgia; Lumbago; Chronic pain syndrome; Thrombocytopenia (HCC) (08/26/2010); Fatigue (09/15/2010); Abdominal pain, unspecified site (07/17/2011); Neck pain, chronic (09/24/2011); Syncope (10/09/2010); Obstructive sleep apnea (08/26/2010); ORGANIC INSOMNIA UNSPECIFIED (); CENTRAL SLEEP APNEA CONDS CLASSIFIED ELSEWHERE (12/15/2010); Ulcerative colitis (HC C); Chest pain; SINUS BRADYCARDIA; HEPATITIS B; PUD; FATTY LIVER DISEASE; SUBSTANCE ABUSE, M CHAD; and Preventative health care (06/26/2013). Past Medical, Surgical, Family, and Social History are reviewed and updated today in EMR. Pertinent recommendations are made in the assessment and plan. 14 point ROS was completed and found to be unremarkable apart from the following: Headaches , hearing loss, tinnitus, ear pain, blurred vision, chest pain, palpitations, edema, dyspnea , nausea, myalgias, neck pain, back pain, joint pain, falls, bruising, allergies, dizziness, tingling, sensory change, anxiety, insomnia PHYSICAL EXAM BP 120/90 | Pulse 72 | Ht 1.93 m (6' 4") | Wt 113.399 kg (250 lb) | BMI 30.44 kg/m2 Body mass index is 30.44 kg/(m^2). General: Pleasant appearing in no acute distress HEENT: Moist mucous membranes, no cyanosis or pallor. Neck: No JVD. Chest: Normal respiratory effort, Bilaterally clear to auscultation. Heart: Regular rhythm. No murmur. No RV heave Abdomen: Soft, NT Extremities: No cyanosis, clubbing or edema. 2+ peripheral pulses in both upper and lower extremities Neuro: Alert and oriented Skin: No rashes. Warm, dry. OBJECTIVE DATA Lab Results Component Value Date WBC 6.2 07/26/2014 HGB 16.8* 07/26/2014 HCT 48.7 07/26/2014 PLT 163 07/26/2014 TRIG 88 05/27/2012 HDL 42 05/27/2012 ALT 29 07/26/2014 AST 32 07/26/2014 NA 138 07/26/2014 K 3.7 07/26/2014 CL 105 07/26/2014 CREA 0.89 05/26/2014 BUN 14 07/26/2014 CO2 24 07/26/2014 TSH 1.23 06/26/2013 INR 1.0 01/25/2014 EKG: Atrial paced rhythm at a rate of 70 beats per minute. Nonspecific inferior T wave abn ormalities OTHER OBJECTIVE DATA: I did a brief interrogation of his device in situ 147 PVCs which were recorded between October 23 and November 30. Note: This report was partially dictated with the use of voice recognition software. It may contain inadvertent spelling or grammatical errors which were not detected in the editing p rocess. Should you have any questions or concerns, please do not hesitate to contact me dire ctly. Thank you for allowing me to participate in the care of Moe Sanchez. Warmest regards, Jay Gambino MD 11/30/2014 17:37 documented in this enco unter Procedure Notes IIRNA VAZQUEZ - 11/30/2014 12:00 AM PSTAssociated Order(s): ECG - EXTERNAL SCANElectroni elida signed by Randa Melo at 12/03/2014 4:06 PM PSTdocumented in this encounter Miscellaneous Notes Assessment & Plan Note - Jay Gambino MD - 11/30/2014 5:36 PM PSTAssociated Problem(s): Symptomatic PVCsSymptomatically, the patient has been doing well. He does have symptoms of anxiety. He has not noted specific premature ventricular contractions. When I looked at hi s device he has had just over 200 PVCs over a 40 day period. This is about 5 PVCs per day. Overall, I think his ablation with great success and he has done very well. We'll have him return on an as-needed basis. documented in this encounter Plan of Treatment [...] W | | | | | | [place], | | | | | | [place] [address] | | | | | | [phone] | | | | | | | | +--------+ + + + + documented as of this encounter Procedures + +--------+ + + + | Procedure Name | Priori | Date/Time | Associated Diagnosis | Comments | | | ty | | | | + +--------+ + + + | ECG - EXTERNAL SCAN | | 11/30/2014 | | Results for this | | | | 12:00 AM | | procedure are in the | | | | PST | | results section. | + +--------+ + + + documented in this encounter Results ECG - EXTERNAL SCAN (11/30/2014 12:00 AM PST) + + + | Narrative | Performed At | + + + | Ordered by an | | | unspecified provider. | | + + + + + | Transcriptions | + + | Christoph Meloalberto - 11/30/2014 12:00 AM PST | + + documented in this encounter Visit Diagnoses + + | Diagnosis | + + | Symptomatic PVCs - Primary Other premature beats | + + documented in this encounter
--- OUTSIDE RECORDS SUMMARY | ~2020-06-03 | XMS | Encounter Summary ---
Demographics + + + | Address | [address] | | | [place] [address] | + + + | Home Phone [...] Team Providers + +------+ + | Care Bundle Cutter Name | Role | Phone | + +------+ + PCP | Unavailable | + +------+ + Encounter Details +--------+ + + + + | Date | Type | Department | Care Team | Description | +--------+ + + + + | 02/07/ | [facility] | [facility] | Unknown, | | | 1995 | Encounter | MED CTR XRAY [address] | MD Stefany . | | | | | [address] | | | | | | [place] [address] | (Fax) | | | | | [phone] | | | +--------+ + + + [...] | | | | | | [place] [address] | | | | | | [phone] | | | | | | | | +--------+ + + + + documented as of this encounter Visit Diagnoses Not on filedocumented in this encounter"
--- OUTSIDE RECORDS SUMMARY | ~2020-06-03 | XMS | Encounter Summary ---
Demographics + + + | Address | [address] | | | [place] [address] | + + + | Home Phone [...] Team Providers + +------+ + | Care Side Stitcher Name | Role | Phone | + +------+ + | Kirk French MD | PCP | | + +------+ + Reason for Visit +--------+--------+ + | Reason | Onset | Comments | | | Date | | +--------+--------+ + | Other | 12/23/ | Question about prep for procedure | | | 2017 | | +--------+--------+ + Encounter Details +--------+ + + + + | Date | Type | Department | Care Team | Description | +--------+ + + + + | 12/23/ | Telephone | [facility] | Emmanuel Daniel MD | Other (Question | | 2018 | | GASTROENTEROLOGY | [address], [place] | about prep for | | | | [address] [place] | [address] [place] [place] | procedure) | | | | [address] [place] [address] | [id number] | | | | | [address] | | | | | | [phone] | | | +--------+ + + + [...] Telephone Encounter - Kaylynn Copeland RN - 12/24/2017 8:15 AM PSTLeWedding Spot message return ing patient's call. P STTelephone Encounter - Nataly Pratt - 12/23/2017 4:01 PM PSTPatient called to speak [facility] prep for tomorrow's procedure. Please call patient back at home number [phone]. docum ented in this encounter Plan of Treatment +--------+ [...] | | | | | | [place] [address] | | | | | | [phone] | | | | | | | | +--------+ + + + + documented as of this encounter Visit Diagnoses Not on filedocumented in this encounter"
--- OUTSIDE RECORDS SUMMARY | ~2020-06-03 | XMS | Encounter Summary ---
Demographics + + + | Address | [address] | | | [place] [address] | + + + | Home Phone [...] Team Providers + +------+ + | Care Planer Chain Offbearer Name | Role | Phone | + +------+ + PCP | Unavailable | + +------+ + Encounter Details +--------+ + + + + | Date | Type | Department | Care Team | Description | +--------+ + + + + | 12/16/ | Hospital | [facility] | | | | 2010 | Encounter | MED CTR LABORATORY | | | | | | [address] | | | | | | [place] | | | | | | [address] | | | | | | [phone] | | | +--------+ + + + [...] | | | | | | [place] [address] | | | | | | [phone] | | | | | | | | +--------+ + + + + documented as of this encounter Visit Diagnoses Not on filedocumented in this encounter"
--- OUTSIDE RECORDS SUMMARY | ~2020-06-03 | XMS | Encounter Summary ---
Demographics + + + | Address | [address] | | | [place] [address] | + + + | Home Phone [...] Team Providers + +------+ + | Care Crutcher Helper Name | Role | Phone | [...] Refill | | 2014 | | [facility] | DO [address] | | | | | [address] | [place] | | | | | [place] | [address] | | | | | [address] | | | | | | [phone] | | | +--------+--------+ + + + [...] | | | | | | [place] [address] | | | | | | [phone] | | | | | | | | +--------+ + + + + documented as of this encounter Visit Diagnoses Not on filedocumented in this encounter"
--- OUTSIDE RECORDS SUMMARY | ~2020-06-03 | XMS | Encounter Summary ---
Demographics + + + | Address | [address] | | | [place] [address] | + + + | Home Phone [...] Team Providers + +------+ + | Care Hose Sprayer Name | Role | Phone | + +------+ + PCP | Unavailable | + +------+ + Encounter Details +--------+ + + + + | Date | Type | Department | Care Team | Description | +--------+ + + + + | 07/20/ | [facility] | [facility] | Hunter Antunez, | | | 2009 - | Encounter | MED CTR MED ONC | [address] | | | | | [address] | [place] | | | 07/24/ | | [place] [address] | [id number] | | | 2009 | | [phone] | | | +--------+ + + + [...] | | | | | | [place] [address] | | | | | | [phone] | | | | | | | | +--------+ + + + + documented as of this encounter Visit Diagnoses Not on filedocumented in this encounter"
--- OUTSIDE RECORDS SUMMARY | ~2020-06-03 | XMS | Encounter Summary ---
Demographics + + + | Address | [address] | | | [place] [address] | + + + | Home Phone [...] Team Providers + +------+ + | Care Military Aircraft Designer Name | Role | Phone | + +------+ + | Michael Amanda DO | PCP | | + +------+ + Reason for Visit + +--------+ + | Reason | Onset | Comments | | | Date | | + +--------+ + | Referral | 03/13/ | | | | 2013 | | + +--------+ + Encounter Details +--------+ + + + + | Date | Type | Department | Care Team | Description | +--------+ + + + + | 03/13/ | Telephone | [facility] [place] | Miguel Demarco MD | Referral | | 2014 | | NEUROSURGERY [address] | [address] | | | | | [address] | [place] [address] | | | | | [place] | [phone] | | | | | [address] | | | | | | [phone] | | | +--------+ + + + [...] this encounter Miscellaneous Notes Telephone Encounter - Eduardo Brittney Adrian - 03/13/2014 11:54 AM PDTReferral received in the office. Forwarded to Andreia Small (referrals coordinator) for review. elephone Encounter - Miguel Demarco MD - 03/13/2014 11:07 AM PDTThis patient has had multiple prior operations done elsewhere. He was advised to go to an ED or rapid evaluation but elected not to do this. Given over a week of incontinence, I would at this time recommend he get a CT myelogram repeated of his C/T/L region soon for review. I will make recommendations regarding his options once that kiara garza can be reviewed. As he is not an established patient, this can be ordered by his PCP or FENG Spangler OR he can go to the ED and have it ordered (my office's previous and correct recommendation th at was not done by the patient). Miguel Demarco elephone Encounter - Brittney Devlin - 03/13/2014 10:56 AM FENG Sosa called from [facility] to let Dr. Demarco know that she is making an urgent referral for Mr. Sanchez. He had urinary i ncontinence last week. He called our office and was advised to proceed to the nearest ER. There is an ER note in epic but it does not address his urinary incontinence. Chief complai nt was chest pain, shortness of breath. Whit states that he stopped taking all narcotics as of last week. Mr. Sanchez has a new onset of falling. He has a history of cervical fusio n. Whit is not sure which surgeon did Mr. Sanchez's surgeries. His last MRI was done at [facility]. Whit states the MRI is over 1 year old. She will have this forwarde d to Dr. Demarco. Referrals coordinator updated. documented in this enc ounter Plan of Treatment +--------+ + + + [...] | | | | | | [place] [address] | | | | | | [phone] | | | | | | | | +--------+ + + + + documented as of this encounter Visit Diagnoses Not on filedocumented in this encounter"
--- OUTSIDE RECORDS SUMMARY | ~2020-06-03 | XMS | Encounter Summary ---
Demographics + + + | Address | [address] | | | [place] [address] | + + + | Home Phone [...] | Author | [facility] | | | and [...] Team Providers + +------+ + | Care Golf Ball Winder Name | Role | Phone | + +------+ + | Kirk French MD | PCP | | + +------+ + Reason for Visit +--------+--------+ + | Reason | Onset | Comments | | | Date | | +--------+--------+ + | Other | 01/30/ | | | | 2019 | | +--------+--------+ + Encounter Details +--------+ + + + + | Date | Type | Department | Care Team | Description | +--------+ + + + + | 01/30/ | Telephone | [facility] [place] | Daljit Singletary, | Other | | 2018 | | CARDIOLOGY [address] [place] | | | | | [place], | [place], | | | | | [place] [address] | [place] [address] | | | | | [phone] | [phone] | | | | | | | [...] this encounter Miscellaneous Notes Telephone Encounter - Mariana Valentine RN - 02/03/2019 2:18 PM PDTPatient notified, re fused isosorbide, last time he was put on it, developed a headache that did not stop until h e went off of it. Lab slip mailed to patient for 3 month recheck. .......................... ................Mariana Valentine RN on 02/03/19 at 14:33 elephone Encount er - Mariana Valentine RN - 02/03/2019 2:09 PM PDTLeft message on voicemail to return ca ll ..........................................Mariana Valentine RN on 02/03/19 at 14:09 elephone Encount er - Mariana Valentine RN - 02/01/2019 9:00 AM PDTLeft message on voicemail to return ca ll ..........................................Mariana Valentine RN on 02/01/19 at 9:00 elephone Encount er - Daljit Singletary MD - 01/31/2019 5:58 AM PDTStop Pravastatin. elephone Encounter - Dileep Negrete RN - 01/30/2019 4:56 PM PDTPatient notified. Is he suppose to be on both Lipitor and pravas tatin? elephone E ncounter - Daljit Singletary MD - 01/30/2019 4:14 PM PDTStart Lipitor 20 mg a day. Start Imdur 15 mg once a day. Check LFT and lipid profile in 3 months.Electronically signed by Daljit Singletary MD at 4:14 PM PDTTelephone Encounter - Mariana Valentine RN - 01/30/2019 3:59 PM PDT Patient called, he was told by Dr Brasher that he was prescribing a new medication for him at h is heart cath, there is no new prescription at the pharmacy. I informed him that I would con sult with Dr Brasher and return his call ..........................................Mariana Aquino RN on 01/30/19 at 16:01 documented in thi s encounter Plan of Treatment +--------+ + + [...] [place], | | | | | | [place] [address] | | | | | | [phone] | | | | | | | | +--------+ + + + + + +------+--------+ + + | Name | Type | Priori | Associated Diagnoses | Order Schedule | | | | ty | | | + +------+--------+ + + | Hepatic Function | Lab | Routin | Coronary artery | Expected: | | Panel | | e | disease involving | 05/02/2019, Expires: | | | | | qagan tayagungin coronary | 01/30/2020 | | | | | artery of qagan tayagungin | | | | | | heart without angina | | | | | | pectoris | | | | | | Hyperlipidemia, | | | | | | mixed | | + +------+--------+ + + | Lipid Panel | Lab | Routin | Coronary artery | Expected: | | | | e | disease involving | 05/02/2019, Expires: | | | | | qagan tayagungin coronary | 01/31/2020 | | | | | artery of qagan tayagungin | | | | | | heart without angina | | | | | | pectoris | | | | | | Hyperlipidemia, | | | | | | mixed | | + +------+--------+ + + documented as of this encounter Visit Diagnoses + + | Diagnosis | + + | Coronary artery disease involving qagan tayagungin coronary artery of qagan tayagungin heart without | | angina pectoris - Primary | + + | Hyperlipidemia, mixed Mixed hyperlipidemia | + + documented in this encounter"
--- OUTSIDE RECORDS SUMMARY | ~2020-06-03 | XMS | Encounter Summary ---
Demographics + + + | Address | [address] | | | [place] [address] | + + + | Home Phone [...] Team Providers + +------+ + | Care Cupola Operator Insulation Name | Role | Phone | + [...] | | | | [place] | [phone] | | | | | [address] | | | | | | [phone] | | | +--------+ + + + [...] + + + +---------+ + + | Dickson-3 Fatty | CAPS, one capsule by | [...] | | | | | | [place] [address] | | | | | | [phone] | | | | | | | [...] + + | Kalpesh Brown Conversion - 07/06/2019 12:12 AM PDT This is a non-reportable procedure | | without a radiologist report and isused for image storage only | + + documented in this encounter Visit Diagnoses + + | Diagnosis | + + | Pain Generalized pain | + + documented in this encounter"
--- OUTSIDE RECORDS SUMMARY | ~2020-06-03 | XMS | Encounter Summary ---
Demographics + + + | Address | [address] | | | [place] [address] | + + + | Home Phone [...] Team Providers + +------+ + | Care Road Freight Brake Coupler Name | Role | Phone | + [...] Closed | | Radiology | Diagnoses | Hermilo, | | | | | | Spinal | Pia | | | | | | stenosis, | MD Sofía | | | | | | lumbar | [address] | | | | | | region | [address] | | | | | | Procedures | [address] | | | | | | [place] | [place], [place] | | | | | | Myelography | [address] | | | | | | Lumbar Spine | Phone: | | | | | | | [phone] | | | | | | | Fax: | | | | | | | [phone] | | +--------+--------+ + + + + Reason for Visit Diagnostic/Screening (Routine) +--------+--------+ + + + + | Status | Reason | Specialty | Diagnoses / | Referred By | Referred To | | | | | Procedures | Contact | Contact | +--------+--------+ + + + + | Closed | | Radiology | Diagnoses | Akhtar, | | | | | | Spinal | Pia | | | | | | stenosis, | MD Sofía | | | | | | lumbar | [address] | | | | | | region | [address] | | | | | | Procedures | [address] | | | | | | CT | [place], [place] | | | | | | Myelography | [address] | | | | | | Lumbar Spine | Phone: | | | | | | | [phone] | | | | | | | Fax: | | | | | | | [phone] | | +--------+--------+ + + + + Encounter Details +--------+ + + + + | Date | Type | Department | Care Team | Description | +--------+ + + + + | 04/07/ | Hospital | [facility] | Pia Akhtar | Spinal stenosis, | | 2016 | Encounter | MED [facility] [address] | MD Sofía [address] | lumbar region | | | | [place], | [address] | | | | | [place] [address] | [place] [address] | | | | | [phone] | [phone] | | | | | | | [...] + + +---------+ + + | [place]-3 Fatty | CAPS, one capsule by | [...] [place], | | | | | | [place] [address] | | | | | | [phone] | | | | | | | | +--------+ + + + + documented as of this encounter Procedures + +--------+ + + + | Procedure Name | Priori | Date/Time | Associated Diagnosis | Comments | | | ty | | | | + +--------+ + + + | CT MYELOGRAPHY | Routin | 04/07/2016 | Spinal stenosis, | Results for this | | LUMBAR SPINE | e | 11:46 AM | lumbar region | procedure are in the | | | | PDT | | results section. | + +--------+ + + + documented in this encounter Results CT Myelography Lumbar Spine (04/07/2016 11:46 AM PDT) + + | Specimen | + + | | + + + + + | Narrative | Performed At | + + + | CT MYELOGRAPHY LUMBAR SPINE 04/07/2016 11:27 AM HISTORY: CT | [facility] | | Myelogram, lumbar spinal stenosis L5 to S1. COMPARISON: None. | | | PROTOCOL: Thin section axial images of the lumbar spine were obtained | | | along with coronal and sagittal reformations. FINDINGS: Fusion | | | hardware extends from L4 through L5 with spacer hardware at L4-5. | | | There is mild left curvature of the lumbar spine. Mild spondylosis is | | | observed. Endplate sclerosis is at L4-5. Vertebral body height are | | | preserved. Mild disc narrowing is at L3-4. There is moderate disc | | | narrowing at L4-5. Vacuum disc phenomenon are at these 2 levels. | | | The conus medullaris terminates at level L1, which is normal. | | | T11-12: No central canal or neural foramina canal stenosis. | | | T12-L1: No central canal or neural foramina canal stenosis. L1-2: | | | No central canal or neural foramina canal stenosis. L2-3: A small | | | posterior disc bulge is observed along with mild facet hypertrophy | | | and ligamentum flavum hypertrophy. No central stenosis is seen. Mild | | | left neural foraminal canal stenosis is observed. L3-4: Moderate | | | posterior disc bulging is present along with moderate facet | | | hypertrophy and ligamentum flavum hypertrophy. There is moderate | | | central stenosis with AP dimension of the central canal measuring 8 | | | mm. Moderate right and mild left neural foraminal canal stenoses are | | | seen. L4-5: No central canal or neural foramina canal stenosis. | | | L5-S1: There is normal tapering of the central canal to 7 mm at | | | this level. There is mild atherosclerosis of the aorta extending | | | into the iliac arteries. Small nonobstructing stones are visualized | | | of the bilateral kidneys. IMPRESSION - Posterior fusion from L4 | | | through L5. Degenerative changes that includes moderate central | | | stenosis at L3-4 along with moderate right and mild left neural | | | foraminal canal stenoses. Lesser degenerative changes as described | | | above. Dictated and Signed by: Nuno Leigh MD Electronically | | | signed: 04/07/2016 12:54 PM | | + + + + + | Procedure Note | + + | Kevin, Rad Results In - 04/07/2016 12:[address] MYELOGRAPHY LUMBAR SPINE 04/07/2016 | | 11:27 AMHISTORY: CT Myelogram, lumbar spinal stenosis L5 to S1.COMPARISON: | | None.PROTOCOL: Thin section axial images of the lumbar spine were obtained along | | withcoronal and sagittal reformations.FINDINGS:Fusion hardware extends from L4 through | | L5 with spacer hardware at L4-5. Thereis mild left curvature of the lumbar spine. Mild | | spondylosis is observed.Endplate sclerosis is at L4-5. Vertebral body height are | | preserved. Mild disc narrowing is at L3-4. There is moderate disc narrowing at L4-5. | | Vacuumdisc phenomenon are at these 2 levels. The conus medullaris terminates at level | | L1, which is normal.T11-12: No central canal or neural foramina canal stenosis.T12-L1: | | No central canal or neural foramina canal stenosis.L1-2: No central canal or neural | | foramina canal stenosis.L2-3: A small posterior disc bulge is observed along with mild | | facet hypertrophyand ligamentum flavum hypertrophy. No central stenosis is seen. Mild | | left neuralforaminal canal stenosis is observed.L3-4: Moderate posterior disc bulging is | | present along with moderate facethypertrophy and ligamentum flavum hypertrophy. There | | is moderate centralstenosis with AP dimension of the central canal measuring 8 mm. | | Moderate rightand mild left neural foraminal canal stenoses are seen. L4-5: No central | | canal or neural foramina canal stenosis. L5-S1: There is normal tapering of the central | | canal to 7 mm at this level.There is mild atherosclerosis of the aorta extending into | | the iliac arteries.Small nonobstructing stones are visualized of the bilateral | | kidneys.IMPRESSION -Posterior fusion from L4 through L5.Degenerative changes that | | includes moderate central stenosis at L3-4 along withmoderate right and mild left neural | | foraminal canal stenoses.Lesser degenerative changes as described above.Dictated and | | Signed by: Nuno Leigh MD Electronically signed: 04/07/2016 12:54 PM | |L1-2: No central canal or neural foramina canal stenosis. | | | |L2-3: A small posterior disc bulge is observed along with mild facet hypertrophy | |and ligamentum flavum hypertrophy. No central stenosis is seen. Mild left neural | |foraminal canal stenosis is observed. | | | |L3-4: Moderate posterior disc bulging is present along with moderate facet | |hypertrophy and ligamentum flavum hypertrophy. There is moderate central | |stenosis with AP dimension of the central canal measuring 8 mm. Moderate right | |and mild left neural foraminal canal stenoses are seen. | | | |L4-5: No central canal or neural foramina canal stenosis. | | | |L5-S1: There is normal tapering of the central canal to 7 mm at this level. | | | |There is mild atherosclerosis of the aorta extending into the iliac arteries. | |Small nonobstructing stones are visualized of the bilateral kidneys. | | | |IMPRESSION - | |Posterior fusion from L4 through L5. | | | |Degenerative changes that includes moderate central stenosis at L3-4 along with | |moderate right and mild left neural foraminal canal stenoses. | | | |Lesser degenerative changes as described above. | | | |Dictated and Signed by: Nuno Leigh MD | | Electronically signed: 04/07/2016 12:54 PM | + + + +---------+ + + | Performing | Address | City/State/Zipcode | Phone Number | | Organization | | | | + +---------+ + + | [facility] | | | | + +---------+ + + documented in this encounter Visit Diagnoses + + | Diagnosis | + + | Spinal stenosis, lumbar region | + + documented in this encounter"
--- OUTSIDE RECORDS SUMMARY | ~2020-06-03 | XMS | Encounter Summary ---
Demographics + + + | Address | [address] | | | [place] [address] | + + + | Home Phone | | + + + | Preferred Language | Unknown | + + + | Marital Status | | + + + | Orthodox Affiliation | 1013 | + + [...] Team Providers + +------+ + | Care Bottle Capper Name | Role | Phone | + +------+ + | Michael Amanda DO | PCP | | + +------+ + Reason for Visit +--------+--------+ + | Reason | Onset | Comments | | | Date | | +--------+--------+ + | Other | 03/02/ | | | | 2013 | | +--------+--------+ + Encounter Details +--------+ + + + + | Date | Type | Department | Care Team | Description | +--------+ + + + + | 03/02/ | Telephone | [facility] [place] | Daljit Singletary, | Other | | 2013 | | CARDIOLOGY [address] | [address] | | | | | [place], | [place], | | | | | [place] [address] | [place] [address] | | | | | [phone] | [phone] | | | | | | | [...] this encounter Miscellaneous Notes Telephone Encounter - Kailey Pruitt RN - 03/02/2014 3:25 PM PDTPatient called stating he just got out [facility] and he has an enlarged aorta. He was taken off of diltiazem and start ed on Norvasc and clonidine and his blood pressures are very high and he feels horrible. Las t night his blood pressure was 180/120 and today it was 151/104 with a pulse of 85. Advised patient I do not have a doctor in the office, that I would recommend going to the ER. He adv ised "I would rather on the way to see you than to go the the ER here". I advised him to go to the ER. Electronically signed by: Kailey Pruitt RN 03/02/2014 15:35 Electronically sig tremaine by Kailey Pruitt RN at 03/02/2014 3:36 PM PDTdocumented in this encounter Plan of [...] | | | | | | [place] [address] | | | | | | [phone] | | | | | | | | +--------+ + + + + documented as of this encounter Visit Diagnoses Not on filedocumented in this encounter
--- OUTSIDE RECORDS SUMMARY | ~2020-06-03 | XMS | Encounter Summary ---
Demographics + + + | Address | [address] | | | [place] [address] | + + + | Home Phone [...] Team Providers + +------+ + | Care Stockroom Coordinator Name | Role | Phone | [...] + + | 06/06/ | Office | [facility] | [place], | Essential | | 2019 | Visit | CARDIOLOGY [address] | [place] [address] | hypertension | | | | [place], | [place], | (Primary Dx); | | | | [place] [address] | [place] [address] | Sinoatrial node | | | | [phone] | [phone] | dysfunction (HCC) | | | | | | with symptomatic | | | | | | bradycardia; | | | | | | Symptomatic PVCs; | | | | | | Tachycardia; | | | | | | Coronary artery | | | | | | disease involving | | | | | | orutsararmiut coronary | | | | | | artery of orutsararmiut | | | | | | heart [...] encounter Patient Instructions Patient Instructions Julia Allen, Child Care Attendant - 06/06/2019 2:15 PM PDT1. Take a [...] of -critical coronary artery dise ase involving orutsararmiut coronary artery of orutsararmiut heart without angina pectoris, essential hype rtension, [...] was seen in the emergency department at [facility] in [place] due to chest pain, no medication changes at that time. On 06/02/2019 he was seen here in the [facility] department with chest pain, irregular heart [...] active. He has chest pain occasionally, h aster has been having chest pain all last [...] Preventative health care Coronary artery disease involving orutsararmiut coronary artery of orutsararmiut heart without angina pectoris Cannabis abuse, daily [...] 3RD DOSE, CALL 911 100 tablet 3 [place]-3 Fatty Acids (SALMON OIL-1000 PO) CAPS, one capsule by mouth daily twice daily ondansetron (ZOFRAN ODT) 4 mg disintegrating tablet Take 4 mg by mouth every 8 hours as needed for Nausea. ONE TOUCH DELICA LANCETS [facility] Check glucose as needed for hypoglycemia 100 [...] RESULTS reviewed during visit today primarily from [facility]: LIPID Lab Results Component Value [...] BNP 48 06/02/2019 I reviewed records from [facility] for emergency department visit o n 06/02/2019 which is summarized in the HPI. RESULTS- I reviewed reports from [facility]: Ct Abdomen Pelvis W Contrast Result Date: [...] ASSESSMENT: 1. Non-critical Coronary artery disease involving orutsararmiut coronary artery of orutsararmiut heart [facility] angina pectoris: A.Normal exercise sestamibi stress [...] performed by Dr Juan Diego Gambino at [facility] on 01/30/2013.Patient had spontaneous PVC'sfr om 3 [...] to go back in 3 days to [place] for an attempt of ablation under general [...] visit, or sooner with concerns. Julia Clemente, Child Care Attendant am acting as a scribe on behalf of, and in the presenc e of PARISA Lomas. - Julia Allen, Child Care Attendant 06/06/2019 15:10 IJaneen ARNP, personally performed the services described in this documentati on, as scribed in my presence and it is both accurate and complete. -PARISA Lomas 06/06/2019 Portions of this chart may have been created with [email or web address] voice recognition software. Occasi onal wrong-word or [...] | | | | | | [place] [address] | | | | | | [phone] | | | | | | | [...] MD | | | | | | ([id number]) on 06/06/2019 | | | | | [...] + + | Coronary artery disease involving orutsararmiut coronary artery of orutsararmiut heart without | | angina pectoris | + + | Syncope, unspecified syncope type | + + | Ascending thoracic aortic aneurysm (HCC) Thoracic aneurysm without mention of rupture | + + | Hyperlipidemia, mixed Mixed hyperlipidemia | + + documented in this encounter
--- OUTSIDE RECORDS SUMMARY | ~2020-06-03 | XMS | Encounter Summary ---
Demographics + + + | Address | [address] [place] [address] [place] | | | [place] [address] | + + + | Home Phone | | + + + | Preferred Language | Unknown | + + + | Marital Status | | + + + | Christianity Affiliation | Unknown | + + + [...] [place] | | | | | [address] | | + + + + + Care Team Providers + +------+ + | Care Expediter Name | Role | Phone | + +------+ + | Darion Holden DO | PCP | | + +------+ + Encounter Details +--------+ + + + + | Date | Type | Department | Care Team | Description | +--------+ + + + + | 01/22/ | Transcribe | [facility] | Transcribe | | | 2020 | Orders | [facility] [address] | Encounter, Provider, | | | | | [place] for | [address] | | | | | [facility], | [place] [address] | | | | | [address] | | | | | | [place], [place] | | | | | | [address] | | | | | | [phone] | | | +--------+ + + + [...] | + + +--------+ + + | COLONOSCOPY | Procedures | Urgent | Diarrhea, | Expected: 01/23/2020 | | | | | unspecified type | | | | | | Rectal bleeding | | + + +--------+ + + documented as of this encounter Visit Diagnoses + + | Diagnosis | + + | Diarrhea, unspecified type - Primary | + + | Rectal bleeding Hemorrhage of rectum and anus | + + documented in this encounter"
--- OUTSIDE RECORDS SUMMARY | ~2020-06-03 | XMS | Encounter Summary ---
Demographics + + + | Address | [address] | | | [place] [address] | + + + | Home Phone [...] Team Providers + +------+ + | Care Spray Gun Striper Name | Role | Phone | + +------+ + | Kirk French MD | PCP | | + +------+ + Reason for Visit +---------+--------+ + | Reason | Onset | Comments | | | Date | | +---------+--------+ + | Results | 05/02/ | | | | 2020 | | +---------+--------+ + Encounter Details +--------+ + + + + | Date | Type | Department | Care Team | Description | +--------+ + + + + | 05/02/ | Telephone | [facility] [place] | [place], | Results | | 2020 | | CARDIOLOGY [address] | PARISA [place] [address] | | | | | [place], | [place], | | | | | [place] [address] | [place] [address] | | | | | [phone] | [phone] | | | | | | | [...] Telephone Encounter - Mariana Valentine RN - 05/03/2020 11:31 AM PDTPatient notified ... .......................................Mariana Valentine RN on 05/03/20 at 11:31 AM elephone [facility] - Janeen Vega ARNP - 05/02/2020 4:58 PM PDTAttempted to call patient and left VM to let him know echo looked good, no changes from last echo. Aortic dilatation 4.5 cm, unch anged. Electronically signed by: PARISA Lomas 05/02/2020 5:00 PM documented in th is encounter Plan of [...] | | | | | | [place] [address] | | | | | | [phone] | | | | | | | | +--------+ + + + + documented as of this encounter Visit Diagnoses Not on filedocumented in this encounter"
--- OUTSIDE RECORDS SUMMARY | ~2020-06-03 | XMS | Encounter Summary ---
Demographics + + + | Address | [address] | | | [place] [address] | + + + | Home Phone [...] Team Providers + +------+ + | Care System Admin Name | Role | Phone | + [...] [address] | | | | | [place], | [place], | | | | | [place] [address] | [place] [address] | | | | | [phone] | [phone] | | | | | | | [...] | | | | | | [place] [address] | | | | | | [phone] | | | | | | | [...] | | Total, | | | [facility] | | | External | | | [...] + | [facility] | [address] | [place] | | | [facility] | | [address] | | | - LABORATORY [...] | | | LAB | | | [place], | | | [...] | | | | | | [facility] | | | | | | MEDICAL [...] + | [facility] [facility] | [address] | [place], [place] | | | [facility] | | [address], [facility] | | | - LABORATORY [...]
--- OUTSIDE RECORDS SUMMARY | ~2020-06-03 | XMS | Encounter Summary ---
Demographics + + + | Address | [address] | | | [place] [address] | + + + | Home Phone [...] + +------+ + | Care Entry Level Marketing Assistant Name | Role | Phone | [...] | | | lumbar | B | [place] | | | | | Chronic | [place], [place] | [place], | | | | | left-sided | [address] | [place] [address] | | | | | low back | Phone: | Phone: | | | | | pain with | [phone] | [phone] | | | | | left-sided | Fax: | Fax: | | | | | sciatica | [phone] | [phone] | | | | | History of [...] Closed | | Radiology | Diagnoses | [place], | [address] | | | | | DDD | Scotty C, UNEMPLOYMENT SPECIALIST | [address] | | | | | (degenerativ | [address] | [place], | | | | | e disc | [place] | [place] [address] | | | | | disease), | [address] | Phone: | | | | | lumbar | B | [phone] | | | | | Chronic | [place], [place] | Fax: | | | | | left-sided | [address] | [phone] | | | | | low back | Phone: | | | | | | pain with | [phone] | | | | | | left-sided | Fax: | | | | | | sciatica | [phone] | | | | | | History [...] + + | 07/01/ | Hospital | [facility] | Scotty Galdamez, | DDD (degenerative | | 2018 | Encounter | [facility] [address] | UNEMPLOYMENT SPECIALIST [address] | disc disease), | | | | [place], | [address] | lumbar; Chronic | | | | [place] [address] | [place] [address] | left-sided low back | | | | [phone] | [phone] | pain with left-sided | | | [...] + + + +---------+ + + | [place]-3 Fatty | CAPS, one capsule by | [...] | | | | | | [place] [address] | | | | | | [phone] | | | | | | | [...]
--- OUTSIDE RECORDS SUMMARY | ~2020-06-03 | XMS | Encounter Summary ---
Demographics + + + | Address | [address] | | | [place] [address] | + + + | Home Phone [...] Team Providers + +------+ + | Care Shoulder Boner Name | Role | Phone | + [...] | | | | [place] | [phone] | | | | | [address] | | | | | | [phone] | | | +--------+ + + + [...] + + + +---------+ + + | [place]-3 Fatty | CAPS, one capsule by | [...] | | | | | | | #[id number], exp 07/2016 | | | | | [...] W | | | | | | [place], | | | | | | [place] [address] | | | | | | [phone] | | | | | | | [...]
--- OUTSIDE RECORDS SUMMARY | ~2020-06-03 | XMS | Encounter Summary ---
Demographics + + + | Address | [address] [place] [address] [address] | | | [place] [address] | + + + | Home Phone | | + + + | Preferred Language | Unknown | + + + | Marital Status | | + + + | Bahai Affiliation | Unknown | + + + [...] [place] | | | | | [address] | | + + + + + Care Team Providers + +------+ + | Care Passenger Locomotive Engineer Name | Role | Phone | + +------+ + | Darion Hodlen DO | PCP | | + +------+ [...] | | 2019 | | Center at [facility] [address] | MD [address] | | | | | [address] | [place], [place] | | | | | for Health and | [address] | | | | | [facility], [facility] 2 | [phone] | | | | | [place], [place] | | | | | | [address] | | | | | | [phone] | | | +--------+ + + + [...]
--- OUTSIDE RECORDS SUMMARY | ~2020-06-03 | XMS | Encounter Summary ---
Demographics + + + | Address | [address] | | | [place] [address] | + + + | Home Phone [...] Providers + +------+ + | Care Pediatric Surgeon Name | Role | Phone | + +------+ + PCP | Unavailable | + +------+ + Encounter Details +--------+ + + + + | Date | Type | Department | Care Team | Description | +--------+ + + + + | 06/25/ | [facility] | [facility] | Daljit Singletary, | | | 2008 | Encounter | MED CTR XRAY [address] | [address] [place] | | | | | [place] | [facility] [place], | | | | | [place] [address] | [place] [address] | | | | | [phone] | [phone] | | | | | | | [...] | | | | | | [place] [address] | | | | | | [phone] | | | | | | | | +--------+ + + + + documented as of this encounter Visit Diagnoses Not on filedocumented in this encounter"
--- OUTSIDE RECORDS SUMMARY | ~2020-06-03 | XMS | Encounter Summary ---
Demographics + + + | Address | [address] | | | [place] [address] | + + + | Home Phone [...] Team Providers + +------+ + | Care Detention Officer Name | Role | Phone | [...] + | 01/03/ | Office | [facility] | [place], | CAD (coronary artery | | 2012 | Visit | CARDIOLOGY [address] | Janeen, TREAD BOOKER [address] | disease) (Primary | | | | [place], | [place], | Dx); Bradycardia; | | | | [place] [address] | [place] [address] | HTN (hypertension); | | | | [phone] | [phone] | Lightheadedness | | | | | [...] is a 52 y.o. male. PCP: Michael BOO Moe Sanchez is a 52 y.o. male [...] tablet Take 1,000 mg by mouth Daily. [place]-3 Fatty Acids (SALMON OIL-1000 PO) CAPS, one [...] himself t o the emergency department at [facility] in [place], [place]. EKG showed normal s inus rhythm [...] Refer patient to an electrophysiology specialist in [place] for further evaluation for P VC's ablation. I have given verbal instructions and written material for patient to read mo re about the procedure. 2. Check blood pressure and pulse twice daily for two weeks and return the log to our offic e. 3. Followup appointment after patient's appointment with machine shop specialist/ablation. I, PARISA Russell, saw this patient under the direct supervision of Daljit Singletary MD Portions of this report were transcribed using voice recognition software. Every effort wa s made to ensure accuracy; however, inadvertent computerized director of industrial relations errors may be pre sent. documented in [...] | | | | | | [place], | | | | | | [place] [address] | | | | | | [phone] | | | | | | | | +--------+ + + + + documented as of this encounter Visit Diagnoses + + | Diagnosis | + + | CAD (coronary artery disease) - Primary Coronary atherosclerosis of unspecified type | | of vessel, teller or graft | + + | Bradycardia Other specified cardiac dysrhythmias | + + | HTN (hypertension) Unspecified essential hypertension | + + | Lightheadedness Dizziness and giddiness | + + documented in this encounter
--- OUTSIDE RECORDS SUMMARY | ~2020-06-03 | XMS | Encounter Summary ---
Demographics + + + | Address | [address] | | | [place] [address] | + + + | Home Phone [...] Team Providers + +------+ + | Care Lighting Fixture Installer Name | Role | Phone | + +------+ + | Kirk French MD | PCP | | + +------+ + Reason for Visit Diagnostic/Screening (Routine) +--------+--------+ [...] unspecified | [address] | [address] | | | | | type | [address] | [place], | | | | | Procedures | [place], | [place] | | | | | [place] Nuclear | [place] [address] | [address] | | | | | Stress Test | Phone: | Phone: | | | | | (Vasodilator | [phone] | [phone] | | | | | ) CHG | Fax: | Fax: | | | | | MYOCARDIAL | [phone] | [phone] | | | | | SPECT | | | | | | | MULTIPLE | | | | | | | STUDIES [place] | | | | | | | CV STRS TST | | | | | | | XERS&/OR RX | | | | | | | CONT ECG W/O | | | | | | | I&R [place] | | | | | | | [...] + + | 07/21/ | Hospital | [facility] | Daljit Singletary, | | | 2018 | Encounter | MED CTR NUCLEAR | MD [address] | | | | | MEDICINE [address], | | | | | [place], | [place] [address] | | | | | [place] [address] | [phone] | | | | | [phone] | | | +--------+ + + + [...] + + + +---------+ + + | Ironside-3 Fatty | CAPS, one capsule by | [...] | | | | | | [place] [address] | | | | | | [phone] | | | | | | | [...] | | | | | | Starting [facility] 07/21/18 at 1224, For | | | | | | | 1 dose, Nuclear Medicine | | | | | | + +--------+ + +------+------+ +---+---+ | | | +---+---+ documented in this encounter"
--- OUTSIDE RECORDS SUMMARY | ~2020-06-03 | XMS | Encounter Summary ---
Demographics + + + | Address | [address] | | | [place] [address] | + + + | Home Phone [...] Providers + +------+ + | Care Automobile Seat Cover Installer Name | Role | Phone | + +------+ + | Kirk French MD | PCP | | + +------+ + Encounter Details +--------+ + + + + | Date | Type | Department | Care Team | Description | +--------+ + + + + | 06/23/ | Abstract | [facility] [place] | Sil[place], | | | 2016 | | CARDIOLOGY [address] | PARISA [place] [address] | | | | | [place], | [place], | | | | | [place] [address] | [place] [address] | | | | | [phone] | [phone] | | | | | | | [...] | | | | | | [place] [address] | | | | | | [phone] | | | | | | | | +--------+ + + + + documented as of this encounter Procedures + +--------+ + + + | Procedure Name | Priori | Date/Time | Associated Diagnosis | Comments | | | ty | | | | + +--------+ + + + | EXTERNAL LAB: | Routin | 06/22/2016 | | Results for this | | TRIGLYCERIDES | e | 9:28 AM | | procedure are in the | | | | PDT | | results section. | + +--------+ + + + | EXTERNAL LAB: | Routin | 06/22/2016 | | Results for this | | CHOLESTEROL, HDL | e | 9:28 AM | | procedure are in the | | | | PDT | | results section. | + +--------+ + + + | EXTERNAL LAB: | Routin | 06/22/2016 | | Results for this | | CHOLESTEROL, TOTAL | e | 9:28 AM | | procedure are in the | | | | PDT | | results section. | + +--------+ + + + | EXTERNAL LAB: | Routin | 06/22/2016 | | Results for this | | CHOLESTEROL, LDL | e | 9:28 AM | | procedure are in the | | | | PDT | | results section. | + +--------+ + + + | LIPID PANEL | Routin | 06/22/2016 | | Results for this | | | e | | | procedure are in the | | | | | | results section. | + +--------+ + + + documented in this encounter Results External Lab: Triglycerides (06/22/2016 9:28 AM PDT) + +-------+ + + + | Component | Value | Ref Range | Performed | Pathologist | | | | | At | Signature | + +-------+ + + + | Triglycerid | 82 | 30 - 150 | EXTERNAL | | | es, | | | LAB | | | External | | | | | + +-------+ + + + + + | Specimen | + + | Blood specimen | | (specimen) | + + + + | Resulting Agency Comment | + + | [facility] | + + + +---------+ + + | Performing | Address | City/State/Zipcode | Phone Number | | Organization | | | | + +---------+ + + | EXTERNAL LAB | | | | + +---------+ + + External Lab: Cholesterol, HDL (06/22/2016 9:28 AM PDT) + +-------+ + + + | Component | Value | Ref Range | Performed | Pathologist | | | | | At | Signature | + +-------+ + + + | HDL | 44.3 | 40 mg/dl | EXTERNAL | | | Cholesterol | | | LAB | | | , External | | | | | + +-------+ + + + + + | Specimen | + + | Blood specimen | | (specimen) | + + + + | Resulting Agency Comment | + + | [facility] | + + + +---------+ + + | Performing | Address | City/State/Zipcode | Phone Number | | Organization | | | | + +---------+ + + | EXTERNAL LAB | | | | + +---------+ + + External Lab: Cholesterol, Total (06/22/2016 9:28 AM PDT) + +-------+ + + + | Component | Value | Ref Range | Performed | Pathologist | | | | | At | Signature | + +-------+ + + + | Cholesterol | 149 | 200 mg/dl | EXTERNAL | | | , Total, | | | LAB | | | External | | | | | + +-------+ + + + + + | Specimen | + + | Blood specimen | | (specimen) | + + + + | Resulting Agency Comment | + + | [facility] | + + + +---------+ + + | Performing | Address | City/State/Zipcode | Phone Number | | Organization | | | | + +---------+ + + | EXTERNAL LAB | | | | + +---------+ + + External Lab: Cholesterol, LDL (06/22/2016 9:28 AM PDT) + +-------+ + + + | Component | Value | Ref Range | Performed | Pathologist | | | | | At | Signature | + +-------+ + + + | LDL | 88 | 100 | EXTERNAL | | | Cholesterol | | | LAB | | | , Direct, | | | | | | External | | | | | + +-------+ + + + + + | Specimen | + + | Blood specimen | | (specimen) | + + + + | Resulting Agency Comment | + + | [facility] | + + + +---------+ + + | Performing | Address | City/State/Zipcode | Phone Number | | Organization | | | | + +---------+ + + | EXTERNAL LAB | | | | + +---------+ + + Lipid Panel (06/22/2016) + +-------+ + + + | Component | Value | Ref Range | Performed | Pathologist | | | | | At | Signature | + +-------+ + + + | VLDL | 16 | 4 - 40 | | | | Cholesterol | | | | | | Santi | | | | | + +-------+ + + + | Chol/HDL | 3.4 | 5.0 | | | | Ratio | | | | | + +-------+ + + + | Non-HDL | 105 | 130 | | | | Cholesterol | | | | | + +-------+ + + + + + | Specimen | + + | Blood specimen | | (specimen) | + + documented in this encounter Visit Diagnoses Not on filedocumented in this encounter"
--- OUTSIDE RECORDS SUMMARY | ~2020-06-03 | XMS | Encounter Summary ---
Demographics + + + | Address | [address] [place] [address] [address] | | | [place] [address] | + + + | Home Phone | | + + + | Preferred Language | Unknown | + + + | Marital Status | | + + + | Yarsani Affiliation | Unknown | + + + | Race | White | + + + | Ethnic Group | Not or | + + + Author + + + | Author | [facility] | + + + | Organization | [facility] | + + + | Address | Unknown | + + + | Phone | Unavailable | + + + Support + + + + + | Name | Relationship | Address | Phone | + + + + + | Rachel Valencia | [address] | [place] | | | | | [address] | | + + + + + Care Team Providers + +------+ + | Care Barge Master Name | Role | Phone | + [...] as of this encounter Progress Notes Interface, Computer Lab Para Professional In - 07/19/2006 3:05 AM PDTCLINIC DATE: 06/13/2002 [facility] REFERRING PHYSICIAN: Eugene Vera D.O. [address] [place] [address] Mr. Sanchez is a new patient. He [...] he desires to proceed. Martell Allen M.D. ELIZABETH / KATTY [id number] / [id number] / [id number] / [id number] cc: Eugene Vera D.O. [address] [place] [id number] signed by Interface, Computer Lab Para Professional In at 07/19/2006 3:0 5 AM PDTdocumented in this encounter Plan of Treatment Not on filedocumented as of this encounter Visit Diagnoses Not on filedocumented in this encounter
--- OUTSIDE RECORDS SUMMARY | ~2020-06-03 | XMS | Encounter Summary ---
Demographics + + + | Address | [address] | | | [place] [address] | + + + | Home Phone [...] | [facility] | | | and [...] Team Providers + +------+ + | Care Sandstone Inspector Repairer Name | Role | Phone | [...] + | 07/31/ | Telephone | [facility] | Emmanuel Daniel MD | Medication Refill | | 2019 | | GASTROENTEROLOGY | [address], [place] | | | | | [address] [place] | [address] [place], [place] | | | | | [address] [place], [place] | [address] | | | | | [address] | | | | | | [phone] | | | +--------+ + + + [...] | | | | | | [place] [address] | | | | | | [phone] | | | | | | | | +--------+ + + + + documented as of this encounter Visit Diagnoses Not on filedocumented in this encounter"
--- OUTSIDE RECORDS SUMMARY | ~2020-06-03 | XMS | Encounter Summary ---
Demographics + + + | Address | [address] | | | [place] [address] | + + + | Home Phone [...] Providers + +------+ + | Care Golf Club Manager Name | Role | Phone | + +------+ + | Michael Amanda DO | PCP | | + +------+ + Encounter Details +--------+ + + + + | Date | Type | Department | Care Team | Description | +--------+ + + + + | 05/11/ | Hospital | [facility] | Conversion | Lumbago; | | 2013 | Encounter | [facility]ICAL CENTER XRAY | Transaction, | Postlaminectomy | | | | [address] | Provider Unknown | syndrome, cervical | | | | [place], [place] | | region; Cervicalgia | | | | [address] | (Fax) | | | | | [phone] | | | +--------+ + + + [...] + + + +---------+ + + | Jeanerette-3 Fatty | CAPS, one capsule by | [...] Nurse Filed: 05/11/14 1147 Date of Service: 05/11/14 1146 Status: Signed Supervisor Plate Pasting: Christine Mcgraw Report called to Brittany morejon pt will transfer to u 1116 post mylogram. Pt transferred to xray [...] | | | | | | [place] [address] | | | | | | [phone] | | | | | | | [...]
--- OUTSIDE RECORDS SUMMARY | ~2020-06-03 | XMS | Encounter Summary ---
Demographics + + + | Address | [address] | | | [place] [address] | + + + | Home Phone [...] Team Providers + +------+ + | Care Ham Smoker Name | Role | Phone | + [...] | 2018 | Changes | GASTROENTEROLOGY | Manager Cost | | | | | [address] [facility] | | | | | | [address] [place] | | | | | | [address] | | | | | | [phone] | | | +--------+ + + + [...] | | | | | | [place] [address] | | | | | | [phone] | | | | | | | | +--------+ + + + + documented as of this encounter Visit Diagnoses Not on filedocumented in this encounter"
--- OUTSIDE RECORDS SUMMARY | ~2020-06-03 | XMS | Encounter Summary ---
Demographics + + + | Address | [address] | | | [place] [address] | + + + | Home Phone [...] Providers + +------+ + | Care Director Automotive Name | Role | Phone | + [...] [address] | | | | | [address] | [place] [address] | | | | | [phone] | [phone] | | | | | | | [...] [place], | | | | | | [place] [address] | | | | | | [phone] | | | | | | | [...] + + + + | Non- | 5.46 | 4.20 - 5.70 | [...] | | | Basophils | performed at [facility];[address] | 10*3/uL | LAB | | | | [address] | | | | | | [address];[place] [address] | | | | + + + [...] EXTERNAL | | | | performed at [facility];[address] | u[iU]/mL | LAB | | | | [address] | | | | | | [address];[place] [address] | | | | + + + [...] | | | | | | at [facility];[address] | | | | | | [place] | | | | | | [address] | | | | + + + [...]
--- OUTSIDE RECORDS SUMMARY | ~2020-06-03 | XMS | Encounter Summary ---
Demographics + + + | Address | [address] | | | [place] [address] | + + + | Home Phone [...] [facility] | | [...] Providers + +------+ + | Care Senior Statistical Programmer Name | Role | Phone | + +------+ + | Kirk French MD | PCP | | + +------+ + Encounter Details +--------+ + + + + | Date | Type | Department | Care Team | Description | +--------+ + + + + | 01/25/ | Hospital | [facility] | Daljit Singletary, | Stable angina | | 2019 | Encounter | MED CTR CV INTRA OP | [address] | pectoris ([facility]) | | | | [address] | [address] [place], | | | | | [place] | [place] [address] | | | | | [address] | [phone] | | | | | [phone] | | | +--------+ + + + [...] as a collagen plugis used on the [place] triny site to close the site, you [...] by your healthcare provider Date Last Reviewed: 09/22/201619998638-6742 [employer]. [address] [place] [address]. All righ ts reserved. This information is [...] + + + +---------+ + + | Alamo-3 Fatty | CAPS, one capsule by | [...] of non-critical coronary artery d isease involving or[place]ararmiut coronary artery of orutsararmiut heart without angina pectoris, essential h ypertension, [...] 3RD DOSE, CALL 911 100 tablet 3 [place]amo-3 Fatty Acids (SALMON OIL-1000 PO) CAPS, one capsule by mouth daily twice daily ondansetron (ZOFRAN ODT) 4 mg disintegrating tablet Take 4 mg by mouth. ONE TOUCH DELICA LANCETS [facility] Check glucose as needed for [...] was found Confirmed by ANGELA MARADIAGA MD ([id number]) on 01/03/2019 8:10:39 PM LAB RESULTS reviewed [...] I reviewed reports from [facility]: Xr Chest Ap Portable Result Date: 01/02/2019 [...] involving [place]ararmiut coronary artery of orutsararmiut heart [facility] angina pectoris: A. Normal exercise sestamibi [...] Symptoms with moderate exertion of t he [employer] [employer] functional class. Heart failure stage [...] go back in 3 days t o [place] for an attempt of ablation under general [...] if he has any further problems Christine, Twister Hand am acting as a scribe on behalf of, and in the pres ence of PARISA Lomas. - Christine Rodriguez, Twister Hand 01/11/2019 13:46 I, PARISA Lomas, personally performed the services described in this documentati on, as scribed in my presence and it is both accurate and complete. -PARISA Lomas 01/11/2019 Portions of this chart may have been created with [employer] voice recognition software. Occasi onal wrong-word [...] | | | | | | [place] [address] | | | | | | [phone] | | | | | | | [...] (1960) MEDICAL RECORD NUMBER: | | | [id number] OF PROCEDURE: 01/25/2019 ANIMAL BEHAVIOURIST: Dlajit | | | MD Gemini PROCEDURES PERFORMED:Coronary [...] Sanchez, (1960) | | OF PROCEDURE: 01/25/2019PRIMARY CLINICAL AIDE: Daljit Singletary MD PROCEDURES | | PERFORMED:Coronary [...] | Aggressive medical management. | | at 9:33[facility] PROVIDER:Kirk French MDFor additional detail [...]
--- OUTSIDE RECORDS SUMMARY | ~2020-06-03 | XMS | Encounter Summary ---
Demographics + + + | Address | [address] | | | [place] [address] | + + + | Home Phone [...] Team Providers + +------+ + | Care Podiatrist Orthopedic Name | Role | Phone | + +------+ + | Kirk French MD | PCP | | + +------+ + Reason for Visit + +--------+ + | Reason | Onset | Comments | | | Date | | + +--------+ + | Surgery Appointment | 04/10/ | | | | 2019 | | + +--------+ + Encounter Details +--------+ + + + + | Date | Type | Department | Care Team | Description | +--------+ + + + + | 04/10/ | Telephone | [facility] | Matthew Uriarte | Surgery Appointment | | 2019 | | [address] | MD Tawanna [address] | | | | | [place] | [place] | | | | | [address] | [address] | | | | | [phone] | | | +--------+ + + + [...] Telephone Encounter - Kira Montoya RN - 04/10/2019 2:33 PM PDTFred called back and he talked with Faby, receiving all directions. He has no questions as will proceed as sche duled. elephone En counter - Kira Montoya RN - 04/10/2019 9:28 AM PDTFaby calls back and is given the details of surgery. She will try and call him and let him know. I also mailed pre op instru ctions to patient and faxed lab orders to [facility] in [place]. elephone Encounter - Kira Montoya RN - 04/10/2019 8:40 AM PDTAttempted to call patient to notify of surgery that we were abl e to get scheduled for April 13 at 7:45 AM. Voicemail not set up. Left voicemail for BETSY Faby to call back. Need to read directions from 04/07/19 visit. documented in this encounter Plan of Treatment [...] | | | | | | [place] [address] | | | | | | [phone] | | | | | | | | +--------+ + + + + documented as of this encounter Visit Diagnoses Not on filedocumented in this encounter"
--- OUTSIDE RECORDS SUMMARY | ~2020-06-03 | XMS | Encounter Summary ---
Demographics + + + | Address | [address] | | | [place] [address] | + + + | Home Phone [...] Team Providers + +------+ + | Care Branch Lead Name | Role | Phone | + +------+ + | Kirk French MD | PCP | | + +------+ + Reason for Visit + +--------+ + | Reason | Onset | Comments | | | Date | | + +--------+ + | Medication Reaction | 05/30/ | | | | 2020 | | + +--------+ + Encounter Details +--------+ + + + + | Date | Type | Department | Care Team | Description | +--------+ + + + + | 05/30/ | Telephone | [facility] | Kirk French | Medication Reaction | | 2019 | | [facility] | MD Bre[address] | | | | | [facility] [address] | | | | | [address] | [place] [address] | | | | | [place], [place] | [phone] | | | | | [address] | | | | | | [phone] | | | +--------+ + + + [...] this encounter Miscellaneous Notes Telephone Encounter - Anh Reina RN - 05/30/2020 4:34 PM PDTContacted patient and rela yed provider message. He verbalized understanding of this. elephone Encounter - Kirk French MD - 05/30/20 20 4:23 PM PDTLikely due to lyrica. Reduce to half dose 1 week and then OK to dc do not sto p suddel]=nly ele phone Encounter - Anh Reina RN - 05/30/2020 3:54 PM PDTPatient contacted clinic with wilmer pham about reaction to lyrica. He states he restarted taking lyrica on 05/03/2020. He reports the last few days he is expe riencing swelling in legs up to his knees equally on both sides as well as swelling in hands and forearms. He is not having any chest pain, sob. He states he has had this exact reactio n to lyrica in the past and resolved after stopping the lyrica. He would like to know what Brea French would like to him to do. Informed patient will route message to provider since this has occurred before. Advised may not receive message back until tomorrow but advised in the mean time to closely monitor and if symptoms worsen or if he has any sob or chest pain he should be evaluated at ED. He verb alized understanding of this. elephone Encounter - Wade bautista Tegan - 05/30/2020 3:41 PM PDTFred, is calling regarding Medication Reaction and would like a call back. Additional Call Details: Believes he is having a reaction to Lyrica. Please call him at [phone]. If this is a symptom based call, was patient offered triage? Not Applicable If this is a symptom based call and you were unable to immediately transfer the call to a lorraine bellamy adjunct political science instructor was caller made aware that if at [...] | | | | | | [place] [address] | | | | | | [phone] | | | | | | | | +--------+ + + + + documented as of this encounter Visit Diagnoses Not on filedocumented in this encounter"
--- OUTSIDE RECORDS SUMMARY | ~2020-06-03 | XMS | Encounter Summary ---
Demographics + + + | Address | [address] | | | [place] [address] | + + + | Home Phone [...] Providers + +------+ + | Care Information Systems Security Manager Name | Role | Phone | + +------+ + | Kirk French MD | PCP | | + +------+ + Encounter Details +--------+ + + + + | Date | Type | Department | Care Team | Description | +--------+ + + + + | 01/05/ | [facility] | [facility] | Emmanuel Daniel MD | Functional diarrhea | | 2019 | Encounter | MED CTR MP INTRA OP | [address], [place] | (Primary Dx); Weight | | | | [address] | [address] [place], [place] | loss | | | | [place], [place] | [address] | | | | | [address] | | | | | | [phone] | | | +--------+ + + + [...] for a few hours. Date Last Reviewed: 09/22/201619993882-0082 [employer]. [address] [place] [address]. All righ ts reserved. This information is [...] vomiting, or vomiting blood Date Last Reviewed: 05/22/201619993977-1255 [employer]. [address] [place] [address], [place] [address]. All righ ts reserved. This information is [...] You can't be awakened Date Last Reviewed: 09/08/201619990967-6716 [employer]. [address] [place] [address]. All righ ts reserved. This information is [...] + + + +---------+ + + | [place]-3 Fatty | CAPS, one capsule by | [...] encounter H&P Notes Emmanuel Daniel MD - 01/05/2019 8:32 AM PSTThe patient has no questions consent forms are signed. We will proceed with upper endoscopy colonoscopy mmanuel Daniel MD - 12/26/2018 10:00 AM PST Moe Sanchez is an 58 y.o. male. The patient is seen for diarrhea and GI tract bleeding. Outside records are reviewed The patient has had intermittent episodes of diarrhea since serving in the in [facility]. His last episodes of diarrhea started in February of last year. By diarrhea the patient means loose watery stools. Associated with abdominal cramping. It is precipitated by eatin g. The patient has subsisted on protein drinks orange juice and [employer] roast beef with mas hed potatoes over the past months. He reports within 10 minutes of eating he'll have urgenc y cramping in the epigastric and left upper quadrant area. He'll have bright red blood and melena per rectum. He previously had melena but that has resolved and now has bright red bl ood intermittently with evacuation. He states that his cramping does not decrease after tuan cuation. He has lost about 20 pounds of weight over the past 3-4 months, due to his being a fraid of eating as that precipitates the cramping. Patient does have nocturnal stools and f ecal incontinence associated with urgency.. Patient took up to 8 Imodium a day with no impr ovement of his symptoms. Currently on Lomotil but reports that Lomotil increases abdominal cramping associated with trying to pass solid stool. Previoused attempt trials with antispa smodics have been unsuccessful.. He denies that those have improved his symptoms and denies trying any medication of that type. Patient eats dairy products but is unable to associate dairy products with the diarrhea. He is given of eating gluten. He does not drink and munoz s not smoke. His symptoms got much worse after having "the flu" around gi. He al so states that stress seems to increase his symptoms. Patient has been on multiple probioti cs without improvement of his symptoms. He does take hemp oil for chronic pain which likewi se has been of no benefit with respect to his abdominal symptoms. Workup in the past included upper endoscopy colonoscopy in 2018. Upper endoscopy showed du odenitis and is thought to be more reactive then characteristic of malabsorption i.e. celiac sprue. Colonoscopy showed small ulcerations in the terminal ileum biopsies were negative f or inflammatory bowel disease. CT scan [facility] November s howed mild diverticulosis without evidence of diverticulitis. Possible gastroenteritis. Sm all renal calculi were noted. Patient was placed on antibiotics for unknown reason and repo rted no improvement or worsening of his symptoms. CT done at the time of the emergency room visit CMP were normal. The patient was seen by his PCP November 25 and again CBC and CMP we re normal. 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 Peptic ulcer disease Premature ventricular contraction Preventative health care 06/26/2013 LAST PSA:12/16/2010 RESULT:0.14 LAST COLONOSCOPY:02/05/2009 RESULTnormal exam Prostate troubles PUD Sinoatrial node dysfunction (HCC) SINUS BRADYCARDIA Sleep apnea Stroke (HCC) SUBSTANCE ABUSE, MULTIPLE Syncope 10/09/2010 Tachycardia Thoracic ascending aortic aneurysm (HCC) Thrombocytopenia (HCC) 08/26/2010 Tobacco user Tuberculosis Ulcerative colitis (HCC) Weight loss Allergies: Allergies Allergen Reactions Clarithromycin Palpitations Rapid [...] hospital problems. * Blood pressure 102/80, pulse 78, resp. rate 16, height 1.93 m (6' 4"), weight 109.5 kg (241 lb 6.5 oz). Review of Systems Constitutional: Positive for weight loss. Cardiovascular: Positive for palpitations. Gastrointestinal: Positive for abdominal pain, blood in stool, diarrhea, melena, nausea and vomiting. All other systems reviewed and are negative. Physical Exam Constitutional: He is oriented to person, place, and time. He appears well-developed and we ll-nourished. No distress. HENT: Head: Normocephalic and atraumatic. Right Ear: External ear normal. Left Ear: External ear normal. Nose: Nose normal. Mouth/Throat: Oropharynx is clear and moist. No oropharyngeal exudate. Eyes: Pupils are equal, round, and reactive to light. Conjunctivae and EOM are normal. Righ t eye exhibits no discharge. Left [...] normal. Nursing note and vitals reviewed. Assessment: Diarrhea suspect IBS except for nocturnal evacuation fecal incontinence GI tract bleeding a ll are worrisome symptoms particularly in light of duodenitis and terminal ileal ulcerations on last evaluation done approximately a year ago Increased gastrocolic reflux with diarrhea following meals Multiple other medical problems including chronic pain obstructive sleep apnea being addres sed by primary care physician Plan: Upper endoscopy with repeat biopsy colonoscopy again with repeat biopsy stool studies. Per efits and risks of the procedures are explained to the patient he concurs. Patient be sched uled as an outpatient with propofol sedation due to obstructive sleep apnea etc. Trial of anti-spasmodic Bentyl 20 mg taken before each meal Emmanuel Daniel 12/26/2018 documented in this encounter Miscellaneous Notes Op Note - Emmanuel Daniel MD - 01/05/2019 9:13 AM PSTUpper endoscopy was remarkable for an intact Z line at 8 cm. There was some minor antral gastritis H. pylori biopsy was obtained . Duodenal mucosa appeared normal but duodenal biopsies were obtained for celiac sprue prot ocol. Colonoscopy was remarkable for solids stool remnants primarily feedings etc. in the r ight colon which obscured about a fourth circumference of the lumen. Biopsies were obtained from the right and left colon. Sigmoid colon spasm was noted. he reports that he got gómez ler improvement with Bentyl. The patient will continue on his current medications pending b iopsy results and culture results 9 :14 AM PSTD-C Instructions Provation - Emmanuel Daniel MD - 01/05/2019 8:36 AM PSTDischarge Instructions for Upper Endoscopy Patient: Moe Sanchez : 1960 Acct: [id number] Exam Date: December Doctor: Emmanuel Daniel MD The chances of [...] If unable to reach your physician, call [facility] Emergency Department at Ext. 2500 Your doctor recommends these additional instructions: You are being discharged to home. Resume your previous diet today. Continue your present medications. We are waiting for your pathology results. Your physician has recommended a colonoscopy today. Return to your primary care physician as previously scheduled. Telephone your GI clinic for pathology results in one week. These instructions have been explained to the patient and/or escort. A copy has been given to the patient/escort. Nurse Signature Patient Signature Escort Signature Date Emmanuel Daniel MD 01/05/2019 9:20:28 AM This report has been signed electronically.Electronically signed by Emmanuel Daniel MD at 9:20 AM PSTD-C Instructions Provation - Emmanuel Daniel MD - 01/05/2019 8:36 AM P STDischarge Instructions for Colonoscopy Exams Patient: Moe Sanchez : 1960 Acct: [id number] Exam Date: December Doctor: Emmanuel Daniel MD You have had [...] If unable to reach your physician, call [facility] Emergency Department at Ext. 2500 Your doctor [...] Signature Escort Signature Date Emmanuel Daniel MD 01/05/2019 9:25:47 AM This report has been signed electronically.Electronically signed by Emmanuel Daniel MD at 9:26 AM PSTdocumented in this encounter Plan of [...] [address] | | | | [address] [place], | | | | | | [place] [address] | | | | | | [phone] | | | | | | | [...] + + | Performed at: 01 - [facility] [address], | REFERENCE LAB | | [place], [place] [id number] Shipping And Receiving Specialist: Miguel Galarza MD, Phone: | [facility] | | [phone] | | + + + + + + + + | Performing | Address | City/State/Zipcode | Phone Number | | Organization | | | | + + + + + | [facility] | [address] | [place], [place] | [phone] | | [facility] | [place] | [address] | | + + + + + [...] [address], | REFERENCE LAB | | [place] [phone] Shipping And Receiving Specialist: Miguel Galarza MD, Phone: | [facility] | | [phone] | | + + + + + + + + | Performing | Address | City/State/Zipcode | Phone Number | | Organization | | | | + + + + + | REFERENCE LAB | [address] | [place], [place] | [phone] | | [facility] | [place] | [address] | | + + + + + [...] ST. | [address] | [place] | [phone] | | [facility] | | [address] | | | - LABORATORY | | [...] [address] | [place] | [phone] | | [facility] | | [address] | | | - LABORATORY | | [...] [address] | [place] | [phone] | | [facility] | | [address] | | | - LABORATORY | | [...] + | [facility] | [address] | [place] | [phone] | | [facility] | | [address] | | | - LABORATORY | | [...] ST. | [address] | [place] | [phone] | | [facility] | | [address] | | | - LABORATORY | | [...] [address] | [place] | [phone] | | [facility] | | [address] | | | - LABORATORY | | | | + + + + + EGD (01/05/2019 8:36 AM PST) + + | Specimen | + + | | + + + + -+ | Narrative | Performed At | + + -+ | | [facility] | | GastroenterologyPatient Name: Moe Venegas Date: | PROVATION | | 01/05/2019 8:36 AMMRN: [id number] #: [id number] of : | | | 9Admit Type: AmbulatoryAge: 58Room: [facility] 01Gender: MaleNote | | | Status: FinalizedAttending MD: Emmanuel Daniel , MDProcedure: | | | Upper GI endoscopyIndications: Diarrhea, Weight | | | lossProviders: Emmanuel Daniel MD, Heidi Mixon Kamas, | | | RN, Kim Hicks, Tobacco Sieve Operator, | | | Jarett Barakat MD [...] physician, the nurse, the anesthesiologist and the robotics testing technician | | | in the endoscopy [...] | | Imaging was performed using the [employer] | | | Endoscopy (FICE) [...] Scope In: 8:43:57 AMScope Out: 8:49:50 AM [facility]. | | | [facility], [address] [place] [address] | | | [phone] | | |Recommendation: | | | - [...] |Scope Out: 8:49:50 AM | | | [facility]. [facility], [address] [place] [address] | | | [address] | | + + -+ + +---------+ [...] | PROVATION | | 01/05/2019 8:36 AMMRN: [id number] #: [id number] of : | | | 9Admit Type: AmbulatoryAge: 58Room: [facility] 01Gender: MaleNote | | | Status: FinalizedAttending MD: Emmanuel Daniel , [facility]cedure: | | | ColonoscopyIndications: Clinically significant diarrhea of | | | unexplained origin, Weight lossProviders: | | | Emmanuel Daniel MD, Heidi An RN, Kim | | | Fiorella Hicks, Tobacco Sieve Operator, Jarett Alejo | | | MD Roshni [...] | | | the anesthesiologist and the robotics testing technician in the endoscopy suite. | | [...] AMScope Out: | | | 9:06:28 AM [facility], [address] [facility], | | | [place] [address] | | | - Discharge patient to [...] |Scope Out: 9:06:28 AM | | | [facility], [address] [facility], [place] | | | [address] | | + + -+ + +---------+ [...] | | | (atherosclerotic heart disease of [place] coronary artery without | | | angina [...] chronic or | | | microscopic colitis. [facility]:C3NR GROSS DESCRIPTION: A. The | | | specimen, labeled "Weiser, duodenal biopsy" is received in formalin | | | and consists of seven 0.1-0.5 cm lin fragments. Entirely submitted in | | | (A1). B. The specimen, labeled "Weiser, right colon" is received | | | in formalin and consists of six 0.2-0.3 cm lin fragments. Entirely | | | submitted in (B1). C. The specimen, labeled "Weiser, left colon" | | | is received in formalin and consists of six 0.2-0.3 cm lin-pink | | | fragments. Entirely submitted in (C1). am:AMB:rds PERFORMING | | | LABORATORY: The technical component was performed by [facility] | | | [place] [address] (Shopper Marketing Manager: | | | Kailey Stafford MD; CLIA# [id number]). Professional interpretation was | | | performed by [facility], [facility], [facility] | | | [place] [address] (Shopper Marketing Manager: [place] | Shanique Dao M.D.; CLIA#: [id number]). Diagnostician: Ishaan Fitzpatrick | | Shanique Dao MD Pathologist Electronically Signed 01/06/2019 | | [...] of weight | + + | Pacemaker - Medtronic - [id number] Adapta - Implanted 06/14/2009 Cardiac pacemaker in situ | + + | Ulcerative colitis Ulcerative colitis, unspecified | + + | Smoker Tobacco use disorder | + + | Obstructive sleep apnea on CPAP (variable compliance) Obstructive sleep apnea (adult) | | (pediatric) | + + | Hypertension Unspecified [...] ONCE PRN, Wheezing, | | | Starting [facility] 01/05/19 at 0924, | | | For [...]
--- OUTSIDE RECORDS SUMMARY | ~2020-06-03 | XMS | Encounter Summary ---
Demographics + + + | Address | [address] | | | [place] [address] | + + + | Home Phone [...] Team Providers + +------+ + | Care Scrub Technician Name | Role | Phone | + +------+ + | Michael Amanda DO | PCP | | + +------+ + Reason for Visit +---------+--------+ + | Reason | Onset | Comments | | | Date | | +---------+--------+ + | No Show | 06/23/ | | | | 2012 | | +---------+--------+ + Encounter Details +--------+ + + + + | Date | Type | Department | Care Team | Description | +--------+ + + + + | 06/23/ | Telephone | [facility] | Michael Amanda, | No Show | | 2012 | | MEDICINE MARK | DO [address] | | | | | [address] | [place], [place] | | | | | [place], [place] | [address] | | | | | [address] | | | | | | [phone] | | | +--------+ + + + [...] this encounter Miscellaneous Notes Telephone Encounter - Aaliyah Tello - 06/23/2013 3:32 PM PDTPatient no/showed for appoint ment on 06/23/13. Called patient to check on him, patient stated his vision is bad and can not drive far distances, and could not find a ride. Advised patient to call the office if he ca n not make it, transferred him to the front to reschedule for a physical/eye problems with Brea Amanda. documented in th is encounter Plan of [...] | | | | | | [place] [address] | | | | | | [phone] | | | | | | | | +--------+ + + + + documented as of this encounter Visit Diagnoses Not on filedocumented in this encounter"
--- OUTSIDE RECORDS SUMMARY | ~2020-06-03 | XMS | Encounter Summary ---
Demographics + + + | Address | [address] | | | [place] [address] | + + + | Home Phone [...] Providers + +------+ + | Care Information Technology Teacher Name | Role | Phone | + +------+ + | Michael Amanda DO | PCP | | + +------+ + Encounter Details +--------+ + + + + | Date | Type | Department | Care Team | Description | +--------+ + + + + | 12/19/ | Abstract | [facility] [place] | Daljit Singletary, | Chest pain (Primary | | 2013 | | CARDIOLOGY [address] | Dx); SINUS | | | | [address], | [place], | [place] | | | | [place] [address] | [place] [address] | | | | | [phone] | [phone] | | | | | | | [...] + + + + | 12/09/ | Procedure | Cardiology | | | | 2019 | visit | | | | +--------+ + + + + | 10/30/ | Office | Cardiology | Silvia, | | | 2019 | Visit | | PARISA [place] [address] | | | | | [place], | | | | | | [place] [address] | | | | | | [phone] | | | | | | | | +--------+ + + + + documented as of this encounter Visit Diagnoses + + | Diagnosis | + + | Chest pain - Primary Chest pain, unspecified | + + | SINUS BRADYCARDIA Sinoatrial node dysfunction | + + documented in this encounter
--- OUTSIDE RECORDS SUMMARY | ~2020-06-03 | XMS | Encounter Summary ---
Demographics + + + | Address | [address] | | | [place] [address] | + + + | Home Phone [...] Team Providers + +------+ + | Care Scene And Lighting Design Lecturer Name | Role | Phone | + +------+ + | Kirk French MD | PCP | | + +------+ + Reason for Visit + + + | Reason | Comments | + + + | Leg Swelling | | + + + Encounter Details +--------+ + + + + | Date | Type | Department | Care Team | Description | +--------+ + + + + | 08/23/ | Emergency | [facility] | Michael Montoya MD | Peripheral edema | | 2015 | | [facility] | [address] | (Primary Dx); Venous | | | | CENTER [address] | [place], [place] | insufficiency | | | | [place], [place] | [address] | | | | | [address] | | | | | | [phone] | | | +--------+ + + + [...] + + + | Blood Pressure | 128/77 | 08/23/2015 7:32 PM | | | | | PDT | | + + + + + | Pulse | 74 | 08/23/2015 7:32 PM | | | | | PDT | | + + + + + | Temperature | 36.6 C (97.9 F) | 08/23/2015 6:54 PM | | | | | PDT | | + + + + + | Respiratory Rate | 20 | 08/23/2015 6:54 PM | | | | | PDT | | + + + + + | Oxygen Saturation | 94% | 08/23/2015 7:32 PM | | | | | PDT | | + + + + + | Inhaled Oxygen | - | - | | | Concentration | | | | + + + + + | Weight | 112 kg (247 lb) | 08/23/2015 6:54 PM | | | | | PDT | | + + + + + | Height | 193 cm (6' 4") | 08/23/2015 6:54 PM | | | | | PDT | | + + + + + | Body Mass Index | 30.07 | 08/23/2015 6:54 PM | | | | | PDT [...] as of this encounter Discharge Instructions Instructions Michael Montoya MD - 08/23/2015Diuretic as prescribed (take with potassium sup plement) Continue your compression stockings Return for fever, shortness of breath, other new complaints AttachmentsThe following attachments cannot be sent through Care Everywhere.PERIPHERAL KENYETTA Cr, MAMADOU (ROMANSH)documented in this encounter Medications at Time of [...] + + + +---------+ + + | [place]-3 Fatty | CAPS, one capsule by | [...] | | | | | | | #[id number], exp 07/2016 | | | | | [...] documented as of this encounter ED Notes Michael Montoya MD - 08/23/2015 7:22 PM PDT [facility]oe Sanchez Emergency Department Encounter Note [address] [place] [address] PCP:Kirk French MD [phone] CHIEF COMPLAINT: Leg swelling HPI Moe Sanchez is a 55 y.o. male who presents to the Emergency Department who has been having bilateral leg swelling this been ongoing since a recent trip to [facility]. He's not had chest pain or increasing shortness of breath. He had some increased pain in the leg s and noticed redness of both legs. He was seen at 2 different hospitals in [facility] to have the leg evaluated. He initially thought he was diagnosed with DVT in both legs and he was started on Lovenox. His leg swelling has improved somewhat but he continues to have some mi ld swelling. He does not have history of thromboembolic disease previous to this. He's not had other specific complaints social this. No fever. On review of the charts that he is b rought he has had 2 ultrasounds from different hospitals both of them are clear of DVT but r eveal some venous insufficiency. PAST MEDICAL & SURGICAL HISTORY Past Medical History Diagnosis Date Lower [...] 1992 L3-4 Lumbar discectomy 1992 L3-4 Appendectomy 2005 [place] Sinus surgery 1998 Lumbar fusion 01/2011 6 spine fusions Pacemaker placement 06/14/09 Neck fusion 08/10/2012 [place] Ablation 04/03/13 Shoulder surgery 03/22/13 Cardiac catherization 12/25/13 Left Stomach surgery Vasectomy Neck surgery REVIEW OF SYSTEMS As in history of present illness. PHYSICAL EXAM VITAL SIGNS: (first vital signs):Temp: 36.6 C (97.9 F) Pulse: 73 Resp: 20 SpO2: 97 % BP : 128/79 mmHg General: Alert, appears well, non toxic HEENT: Normocephalic, atraumatic, OP clear, PERRL, EOMI Neck: supple, full range of motion, no tracheal deviation Cardiovascular: Normal rate and rhythm, no murmurs, rubs or gallops Pulmonary: CTA bilateral, no wheeze/rhonci or resp distress Musculoskeletal: Pedal edema 1+ bilaterally, mild erythema bilaterally consistent with veno us insufficiency, no increased warmth, 2+ dorsalis pedis pulses no significant unilateral sw elling Neurologic: Alert, no cranial nerve deficits, no focal deficits Skin: warm and dry ASSESMENT & ED COURSE: On review of his chart he does not have DVT. It appears the thinking was that the patient be started on Lovenox for travel back to the state to avoid the risk of air travel and DVT s imilar to a hospitalization in the dosing appears consistent with that. He does not appear to need chronic anticoagulation. He does not have signs of pulmonary embolus, he has 2 stud ies with reports that are negative for DVT. His symptoms are bilateral does not appear to b e cellulitis and I think unlikely to be DVT given the bilateral nature of it. He otherwise had lab evaluation also in [place] that was unremarkable. I think at this point he should s top the Lovenox he does not need a further anticoagulation at this time. We will go ahead a nd try a short course of diuretic to help with the swelling I recommended he continue the co mpression stockings and he will follow-up with his regular doctor. DISPOSITION: Patient discharged home FINAL IMPRESSION: Pedal edema Venous insufficiency Michael Montoya MD 08/23/15 2006 documente d in this encounter Miscellaneous Notes ED Triage Notes - Rita Leon RN - 08/23/2015 6:52 PM PDTBilateral leg swelling whil e in [place]. Diagnosed with bilateral DVT and started on Lovenox. Refused coumadin at that time. Arrives with mild bilateral lower extremity edema. Pt stopped taking Lovenox yesterday. Electronically signed by Rita Leon RN at 2014 7:10 PM PDTdocumented in this encounter Plan of [...] [address] | | | | | | [place], | | | | | | [place] [address] | | | | | | [phone] | | | | | | | | +--------+ + + + + documented as of this encounter Visit Diagnoses + + | Diagnosis | + + | Peripheral edema - Primary Edema | + + | Venous insufficiency Unspecified venous (peripheral) insufficiency | + + documented in this encounter
--- OUTSIDE RECORDS SUMMARY | ~2020-06-03 | XMS | Encounter Summary ---
Demographics + + + | Address | [address] | | | [place] [address] | + + + | Home Phone [...] Team Providers + +------+ + | Care Anvil Worker Name | Role | Phone | + +------+ + PCP | Unavailable | + +------+ + Encounter Details +--------+ + + + + | Date | Type | Department | Care Team | Description | +--------+ + + + + | 10/26/ | Hospital | [facility] | | | | 1994 | Encounter | MED [facility] EMERGENCY | | | | | | [address] | | | | | | [place] | | | | | | [address] | | | | | | [phone] | | | +--------+ + + + [...] | | | | | | [place] [address] | | | | | | [phone] | | | | | | | | +--------+ + + + + documented as of this encounter Visit Diagnoses Not on filedocumented in this encounter"
--- OUTSIDE RECORDS SUMMARY | ~2020-06-03 | XMS | Encounter Summary ---
Demographics + + + | Address | [address] | | | [place] [address] | + + + | Home Phone [...] Team Providers + +------+ + | Care Machine Repairer Maintenance Name | Role | Phone | + [...] [address] | | | | | [place] [employer], | [place], | | | | | [place] [address] | [place] [address] | | | | | [phone] | [phone] | | | | | | | [...] | | | | | | [place] [address] | | | | | | [phone] | | | | | | | [...] Resulting Agency Comment | + + | [facility] | + + + +---------+ + + [...] Resulting Agency Comment | + + | [facility] | + + + +---------+ + + [...] Resulting Agency Comment | + + | [facility] | + + + +---------+ [...] Resulting Agency Comment | + + | [facility] | + + + [...] Resulting Agency Comment | + + | [facility] | + + + +---------+ + + [...] Resulting Agency Comment | + + | [facility] | + + + +---------+ [...] Resulting Agency Comment | + + | [facility] | + + + +---------+ + [...] Resulting Agency Comment | + + | [facility] | + + + +---------+ + [...] Agency Comment | + + | [facility] | + + + +---------+ + [...] Resulting Agency Comment | + + | [facility] | + + + +---------+ [...] Resulting Agency Comment | + + | [facility] | + + + +---------+ + + [...] Resulting Agency Comment | + + | [facility] | + + + +---------+ + + [...] Resulting Agency Comment | + + | [facility] | + + + +---------+ [...] Resulting Agency Comment | + + | [facility] | + + + +---------+ + + [...] Resulting Agency Comment | + + | [facility] | + + + +---------+ + + [...] Resulting Agency Comment | + + | [facility] | + + + +---------+ + + [...]
--- OUTSIDE RECORDS SUMMARY | ~2020-06-03 | XMS | Encounter Summary ---
Demographics + + + | Address | [address] | | | [place] [address] | + + + | Home Phone [...] Providers + +------+ + | Care Card Puncher Name | Role | Phone | + [...] [address] | | | | | [address] | [place] [address] | | | | | [phone] | [phone] | | | | | | | [...] | | | | | | [place] [address] | | | | | | [phone] | | | | | | | [...]
--- OUTSIDE RECORDS SUMMARY | ~2020-06-03 | XMS | Encounter Summary ---
Demographics + + + | Address | [address] | | | [place] [address] | + + + | Home Phone [...] Team Providers + +------+ + | Care Stem Processing Machine Operator Name | Role | Phone | + +------+ + | Michael Amanda DO | PCP | | + +------+ + Reason for Visit + +--------+ + | Reason | Onset | Comments | | | Date | | + +--------+ + | Appointment | 07/07/ | | | | 2012 | | + +--------+ + Encounter Details +--------+ + + + + | Date | Type | Department | Care Team | Description | +--------+ + + + + | 07/07/ | Telephone | [facility] | Daljit Singletary, | Appointment | | 2012 | | CARDIOLOGY [address] [place] | | | | | [place], | [place], | | | | | [place] [address] | [place] [address] | | | | | [phone] | [phone] | | | | | | | [...] this encounter Miscellaneous Notes Telephone Encounter - Kathleen Corona - 08/17/2013 2:21 PM PDTPatient's appointment has been moved up from 10-09-13 to 09-05-13.Electronically signed by Kathleen Corona at 013 2:22 PM PDTTelephone Encounter - Julianne Rowell - 07/27/2013 8:25 AM PDTErrorElectr onically signed by Julianne Rowell at 07/27/2013 8:25 AM PDTTelephone Encounter - Julianne Rowell - 07/27/2013 8:22 AM PDTPatient has been scheduled on 08-10-13, 10:00 resting, 2:0 0 stress and a 3:00 echo. Patient notified. elephone Encounter - Julianne Mcmillan - 07/14/2013 3:02 PM PDTLeft message on machine for patient to callElectro nically signed by Julianne Rowell at 07/14/2013 3:03 PM PDTTelephone Encounter - Brea Tirado RN - 07/14/2013 2:58 PM PDTWill forward this note to Julianne and ask her to please call the patient and get him scheduled ...........................................Darlene Tirado RN on 07/14/2013 at 14:58 elephone Encounter - Janeen Ramirez ARNP - 07/12/2013 5:58 PM PDTWe probably should have him come sooner th en. Can we move his appointment with THR sooner? Thanks! ...........................................PARISA Russell on 07/12/2013 at 17:59 elephone Encounter - Julianne Rowell - 07/07/2013 10:[address] Joy at Dr Gambino in [place]: Patient h ad an ablation in January 2013 and in March 2013. They have scheduled numerous follow up appoin tments, but patient has cancelled or no showed for all of them. She was concerned that he i s not being seen or having his pacemaker checked. He has a follow up appointment with Cory villarreal on 09-28-13 with a pacemaker check. documented in this encounter Plan of Treatment [...] W | | | | | | [place], | | | | | | [place] [address] | | | | | | [phone] | | | | | | | | +--------+ + + + + documented as of this encounter Visit Diagnoses Not on filedocumented in this encounter"
--- OUTSIDE RECORDS SUMMARY | ~2020-06-03 | XMS | Encounter Summary ---
Demographics + + + | Address | [address] | | | [place] [address] | + + + | Home Phone [...] Providers + +------+ + | Care Slot Router Name | Role | Phone | + [...] | Palpitations | [address] | | | | | Procedures | [address] | [address] [place] | | | | | ECHO | [place], | [place], [place] | | | | | Complete | [place] [address] | [address] | | | | | | Phone: | Phone: | | | | | | [phone] | [phone] | | | | | | Fax: | Fax: | | | | | | [phone] | [phone] | +--------+--------+ + + + + Reason [...] + + | 12/21/ | Office | [facility] | Daljit Singletary, | Palpitations | | 2012 | Visit | CARDIOLOGY [address] | (Primary Dx); PVC | | | | [place], | [place], | (premature | | | | [place] [address] | [place] [address] | ventricular | | | | [phone] | [phone] | contraction) | | | | | [...] present himself to the emergency department at [facility] in [place], [place]. Today, patient is apprehensive of the palpitations. He wants to feel better. He denies an kle and leg swelling. Past Medical History Diagnosis Date nuclear stress test 05/25/09 Echocardiogram 05/25/09 LVEF 65/70% Holter monitor 06/03/09 Lower back injury 1980 1985 Hypoglycemia Drug addiction in remission heroin HTN [...] Procedure Date Knee surgery 2004 meniscus-right Laminectomy 1992 [...] tablet Take 1,000 mg by mouth Daily. Vanderbilt-3 Fatty Acids (SALMON OIL-1000 PO) CAPS, one [...] tablet Take 1,000 mg by mouth Daily. Vanderbilt-3 Fatty Acids (SALMON OIL-1000 PO) CAPS, one [...] Gay Date: December 21, 2012 : 1960 Nursing Tech: PARISA Velazquez Device Loan Interviewer Mortgage: Medtronic Sense (mV) Impedance (?) Capture (V) Capture (ms) A Lead 4-5.6 423 1.5 0.09 RV Lead >31.36 539 2.0 0.09 LV Lead Battery Impedance (?): 301 Battery Voltage (V): 2.8 PA Interval (ms): 140 AR Interval (ms): 210 VA Conduction: Mode Switch Events: N/A % of time: -CLAIM SERVICE REPRESENTATIVE: 0.6 AP-CLAIM SERVICE REPRESENTATIVE: 1.3 -VS: 23.9 AP-VS: 74.2 CLAIM SERVICE REPRESENTATIVE: Magnetic Rate: 85 LINDA: 65 LEAH: Current [...] himself to the emerge ncy department at [facility] in [place], [place]. EKG showed normal sinus rhythm with [...] I will d iscuss this option with product info specialist in [place]. 7. Followup in 2-4 weeks. Portions of this report were transcribed using voice recognition software. Every effort wa s made to ensure accuracy; however, inadvertent computerized hris specialist errors may be pre sent. documented in [...] [address] | | | | | | [place], | | | | | | [place] [address] | | | | | | [phone] | | | | | | | | +--------+ + + + + documented as of this encounter Results ECHO Complete (12/30/2012 4:08 PM PST) + + | Specimen | + + | | + + + + + | Narrative | Performed At | + + + | [facility] | [place] | | Department [address] | [facility] | | [ [address]] [ rep ct [facility] | [facility] | | [facility]] Signed | - IMAGING | | | | | Patient Name: MOE GAY | | | Physician: MIGUELINA : 1960 Age: 52 Sex: M Unit | | | #: [id number] Exam Date: 12/30/12 Location: | | | [facility] Report #: [id number] Page: | | | %(RAD)RES..mtdd.print.filter("pg") of %(RAD) | | | RES..mtdd.print.filter("tpg") | | | | | | Accession Number: [id number] | | | E C H O C A R D I O G R A P H Y R E P O R T | | | HEIGHT: 76" WEIGHT: 270# | | | DYE HOUSE WHEEL OPERATOR: JAMEEL REFERRING DR: TIMMY READING DR: | | | WARNER DIAGNOSIS: PALPITATIONS | | | | | [...] | | | Transcribed Date/Time: 12/30/2012 16:34 Pilot Supervisor: | | | <<Signature on File>> | | | Daljit | | | MD Gemini [facility] FASE01/02/13 0955 <Electronically signed by | | | Daljit Singletary MD, [facility], FACP, FASE, FASNC> Shaistawong | | | MD CLEOPATRA Singletary 12/30/12 1608 Pilot Supervisor: Jessica | | | Fotcycmlzplgb68/08/13 1634 Daljit Singletary MD FACC | | | FASE | | + + + + + + + + | Performing | Address | City/State/Zipcode | Phone Number | | Organization | | | | + + + + + | [facility] | [address] | [place] | [phone] | | [facility] | | [address] | | | - IMAGING | | | | + + + + + documented in this encounter Visit Diagnoses + + | Diagnosis | + + | Palpitations - Primary | + + | PVC (premature ventricular contraction) Other premature beats | + + documented in this encounter
--- OUTSIDE RECORDS SUMMARY | ~2020-06-03 | XMS | Encounter Summary ---
Demographics + + + | Address | [address] | | | [place] [address] | + + + | Home Phone [...] Providers + +------+ + | Care Jewelry Jobber Name | Role | Phone | + [...] + + | 10/23/ | Office | [facility] | [place], | CAD (coronary artery | | 2013 | Visit | CARDIOLOGY [address] | [address] | disease) (Primary | | | | [place], | [place], | Dx); Other chest | | | | [place] [address] | [place] [address] | pain; Chest pain; | | | | [phone] | [phone] | Coronary artery | | | | [...] Sanchez Date: October 23, 2014 : 1960 Plate Grinder: Kailey Pruitt RN Device Satellite Television Installer: Medtronic Sense (mV) Impedance (?) Capture (V) Capture (ms) A Lead 2.80-4.00 407 1.500 0.09 RV Lead 22.40-31.36 519 2.000 0.09 LV Lead Battery Impedance (?): 658 Battery Voltage (V): 2.79 [place] Interval (ms): 155 AR Interval (ms): 240 VA Conduction: Mode Switch Events: 1 % of time: <0.1 -HEEL BLACKER: <0.1% AP-HEEL BLACKER: <0.1% -VS: 13.8% AP-VS: 86.1% HEEL BLACKER: Magnetic Rate: 85 LINDA: 65 LEAH: Current [...] signed by: Kailey Pruitt RN 10/23/2014 15:22 Janeen Jesus ARNP - 10/23/2014 2:22 PM PST PATIENT NAME: [...] has been staying physically active with h unt season. He has not been exercising on [...] needed for Chest pain. 25 tablet 12 [place]-3 Fatty Acids (SALMON OIL-1000 PO) CAPS, one [...] attenuation cannot completely be ruled out. [facility] 12/25/13, shows non critical coronary artery [...] He is i n class I-II of [place] Heart Association functional class. There are no [...] ventricular arrhythmia performed by Dr. Gambino at [facility] on 01/30/2013. Patient had spontaneous PVCs [...] dizziness. He is in class I-II of [place] Heart Association functional class. There are n [...] this chart may have been created with [employer] voice recognition software. Occasi onal wrong-word or sound-alike substitutions may have occurred due to the inherent granger itations of voice recognition software. Please read the chart carefully and recognize, using context, where these substitutions have occurred. documented in this encounter Procedure Notes Kailey Pruitt RN - 10/23/2014 3:23 PM PSTAssociated Order(s): DEVICE INTERROGATIONProcedu re(s): DEVICE INTERROGATIONPre-Procedure Diagnose(s): Presence of permanent cardiac pacemake r; Sinoatrial node dysfunction (HCC)Formatting of this note might be different from the orig inal. DEVICE INTERROGATION Name: Moe Kirk Sanchez Date: October 23, 2014 : 1960 Plate Grinder: Kailey Pruitt RN Device Satellite Television Installer: Medtronic Sense (mV) Impedance (?) Capture (V) Capture (ms) A Lead 2.80-4.00 407 1.500 0.09 RV Lead 22.40-31.36 519 2.000 0.09 LV Lead Battery Impedance (?): 658 Battery Voltage (V): 2.79 [place] Interval (ms): 155 AR Interval (ms): 240 VA Conduction: Mode Switch Events: 1 % of time: <0.1 -HEEL BLACKER: <0.1% AP-HEEL BLACKER: <0.1% -VS: 13.8% AP-VS: 86.1% HEEL BLACKER: Magnetic Rate: 85 LINDA: 65 LEAH: Current [...] signed by: Kailey Pruitt RN 10/23/2014 15:22 [facility] - 12/[facility] 12:00 AM PSTAssociated Order(s): ECG - EXTERNAL SCAN documented in this encounter Plan of Treatment [...] W | | | | | | [place], | | | | | | [place] [address] | | | | | | [phone] | | | | | | | [...] 15:23 DEVICE INTERROGATION | | | Name: Moeuriel Bradley Laura Date: October 23, 2014 : | | | 1960 Plate Grinder: Kailey Pruitt RN Device Satellite Television Installer: | | | Medtronic Sense (mV) Impedance (?) Capture (V) Capture (ms) A | | | Lead 2.80-4.00 407 1.500 0.09 RV Lead 22.40-31.36 519 2.000 0.09 | | | LV Lead Battery Impedance (?): 658 Battery Voltage (V): 2.79 | | | [place] Interval (ms): 155 AR Interval (ms): 240 VA Conduction: Mode | | | Switch Events: 1 % of time: <0.1 -HEEL BLACKER: <0.1% AP-HEEL BLACKER: <0.1% -VS: | | | 13.8% AP-VS: 86.1% HEEL BLACKER: Magnetic Rate: 85 LINDA: 65 LEAH: Current [...] Electronically signed by: Kailey Molina | | | MONROE Pruitt 10/23/2014 15:22 | | + + + + + | Procedure Note | + + | Kailey Pruitt RN - 10/23/2014 3:23 PM PST Formatting of this note might be | | different from the original. DEVICE INTERROGATIONName: Moe Sanchez | | Date: October 23, 2014DOB: 1960 Plate Grinder: Ly Saulvice Satellite Television Installer: | | Medtronic Sense (mV) Impedance (?) Capture (V) Capture (ms) A Lead 2.80-4.00 407 1.500 | | 0.09 RV Lead 22.40-31.36 519 2.000 0.09 LV Lead Battery Impedance (?): 658 Battery | | Voltage (V): 2.79 KS Interval (ms): 155 AR Interval (ms): 240 VA Conduction: Mode | | Switch Events: 1 % of time: <0.1 -HEEL BLACKER: <0.1% AP-HEEL BLACKER: <0.1% -VS: 13.8% AP-VS: 86.1% HEEL BLACKER: | | Magnetic Rate: 85 LINDA: 65 [...] Electronically signed by: Kailey | | Tracy Prutit RN 10/23/2014 15:22 | |Mode: AAIR<=>DDDR (MVP) [...] of unspecified type | | of vessel, [place] or graft | + + | Other chest pain | + + | Chest pain Chest pain, unspecified | + + | Coronary artery disease Coronary atherosclerosis of unspecified type of vessel, | | [place] or graft | + + | Pacemaker [...]
--- OUTSIDE RECORDS SUMMARY | ~2020-06-03 | XMS | Encounter Summary ---
Demographics + + + | Address | [address] | | | [place] [address] | + + + | Home Phone [...] Team Providers + +------+ + | Care Mobile Home Set Up Person Name | Role | Phone | [...] + + | 08/29/ | [facility] | [facility] | [place], | Essential | | 2015 | Visit | CARDIOLOGY [address] | PARISA [address] | hypertension | | | | [place], | [place], | (Primary Dx); | | | | [place] [address] | [place] [address] | Coronary artery | | | | [phone] | [phone] | disease involving | | | | | | klawock coronary | | | | | | [...] was advised to come back to the [place] to furt her his evaluation. He was seen in the emergency room at [facility] on 08/23/20 15 and the ER physician reviewed his chart saying that there were 2 ultrasounds from [facility] both of them are clear of DVT but reveal some venous insufficiency. Today, arian ent tells me that he started having swelling in both his feet within a week when he got to [facility]. He had extensive traveling. He went to [...] going to be traveling back to the [facility]. Today, patient states that his leg swelling [...] Preventative health care Coronary artery disease involving klawock coronary artery without angina pectoris Cannabis abuse, [...] by mouth every evening. 90 tablet 3 Misc Natural Products (OSTEO [...] 3rd dose, call 911 100 tablet 3 [place]-3 Fatty Acids (SALMON OIL-1000 PO) CAPS, one capsule by mouth daily twice daily ONE TOUCH DELICA LANCETS [facility] Check glucose as needed for hypoglycemia 100 [...] Daily. to reduce urinary frequenc y Lot #[id number], exp 07/2016 (Patient taking differently: Take 8 mg by mouth Daily. PATIENT STA YOSELIN NO LONGER TAKING THIS MEDICATION. STATED ON 08/29/2015. to reduce urinary frequency Lot #[id number], exp 07/2016) 21 capsule 0 Specialty Vitamins [...] PLTEX 163 07/26/2014 I reviewed records from [facility] for emergency department visit o n 08/23/2015. [...] brought reports to the emergency room at [facility] and according to the not es they [...] to go back in 3 days to [place] for an attempt of ablation under general [...] dizziness. He is in class I-II of [place] Heart Association functional class. T here are [...] this chart may have been created with [employer] voice recognition software. Occasi onal wrong-word or [...] | | | | | | [place] [address] | | | | | | [phone] | | | | | | | [...] the | | | | PDT | klawock coronary | results section. | | | [...] HISTORY: DVT. COMPARISON: None. TECHNIQUE: Compression | [facility] | | sonography was performed from the groin through the popliteal fossa | [facility] | | in both lower extremities.. Grayscale [...] conveyed to the ordering provider, by the building construction contractor, | | | immediately following the exam. Dictated and Signed by: Emmanuel Bay | | MD Edwige Electronically signed: 08/29/2015 3:25 PM | | + + + + + | Procedure Note | + + | Klapesh Brown Results In - 08/29/2015 3:28 PM PDT [...] to the ordering provider, by the | |building construction contractor, immediately following the exam. | | | | | |Dictated and Signed by: Emmanuel Gibbons MD | | Electronically signed: 08/29/2015 3:25 PM | + + + + + + + | Performing | Address | City/State/Zipcode | Phone Number | | Organization | | | | + + + + + | [facility] | [address] | [place] | [phone] | | [facility] | | [address] | | | - IMAGING | | [...] MD | | | | | | ([phone]) on 08/29/2015 | | | | | [...] + + | Coronary artery disease involving klawock coronary artery without angina pectoris | + + | DVT (deep venous thrombosis), bilateral | + + documented in this encounter
--- OUTSIDE RECORDS SUMMARY | ~2020-06-03 | XMS | Encounter Summary ---
Demographics + + + | Address | [address] | | | [place] [address] | + + + | Home Phone [...] Providers + +------+ + | Care Thread Weaver Name | Role | Phone | + +------+ + | Kirk French MD | PCP | | + +------+ + Reason for Visit + +--------+ + | Reason | Onset | Comments | | | Date | | + +--------+ + | Lab Order | 05/16/ | | | | 2019 | | + +--------+ + Encounter Details +--------+ + + + + | Date | Type | Department | Care Team | Description | +--------+ + + + + | 05/16/ | Telephone | [facility] | Emmanuel Daniel MD | Lab Order | | 2019 | | GASTROENTEROLOGY | [address], [place] | | | | | [address] [place] | [address] [place], [place] | | | | | [address] [place], [place] | [address] | | | | | [address] | | | | | | [phone] | | | +--------+ + + + [...] Telephone Encounter - Dileep Negrete RN - 06/13/2019 3:24 PM PDTLeft message for luther bashir to see how he is doing and let him know he needs to get his labs done. Electronically s igned by Dileep Negrete RN at 06/13/2019 3:25 PM PDTTelephone Encounter - Ratna Copeland RN - 06/01/2019 3:35 PM PDTIf patient calls, he is to have the labs done that Dr. Daniel ordered back 04/08/19 T4, TTG antibody, gastrin, lipase, VIP, calcitonin, 24-hour urine or plasma for 5 HIAA. elephone Encounter - Kaylynn Copeland RN - 05/16/2019 9:49 AM PDTPatient calls saying he continues to have "nothing but liquid stools" . He ran out of the [employer] about a week ago but plans to pick it up today. . Dr Uriarte will be doing a laser to break up the kidney stones that remain. He does periodically he take a"whole body cleanse" that cleans out the blood, lover and kidneys. He will bring the name of this cleanse by our office. He is taking lomitol about 6 a day. Has appt Sep 28 GI at [facility] and he is on their waiting list. He asks if Dr Daniel would be able to get him in sooner at [facility] or even [facility] or [facility]. Asks if Dr Daniel will write a letter to [facility] saying he can't wait until Nov. He was started on Viberzi by an ER doctor but patient has not picked this medication up yet. Agrees to start the Viberzi and call a report on Wednesday. documented in this encounter Plan of Treatment [...] | | | | | | [place] [address] | | | | | | [phone] | | | | | | | | +--------+ + + + + documented as of this encounter Visit Diagnoses Not on filedocumented in this encounter
--- OUTSIDE RECORDS SUMMARY | ~2020-06-03 | XMS | Encounter Summary ---
Demographics + + + | Address | [address] | | | [place] [address] | + + + | Home Phone [...] Providers + +------+ + | Care Social Media Marketing Specialist Name | Role | Phone | + +------+ + | Kirk French MD | PCP | | + +------+ + Reason for Visit +--------+--------+ + | Reason | Onset | Comments | | | Date | | +--------+--------+ + | Other | 11/02/ | | | | 2015 | | +--------+--------+ + Encounter Details +--------+ + + + + | Date | Type | Department | Care Team | Description | +--------+ + + + + | 11/02/ | Telephone | [facility] | Daljit Singletary, | Other | | 2015 | | [facility] [address] [place] | | | | | [place], | [place], | | | | | [place] [address] | [place] [id number] | | | | | [phone] | [phone] | | | | | | | [...] Telephone Encounter - Kailey Pruitt RN - 11/03/2016 4:32 PM PSTLeft detailed message for patient requesting additional information if he finds out. Electronically signed by: Kailey cedillo RN 11/03/2016 16:34 P STTelephone Encounter - Geri Angel ARNP - 11/03/2016 3:48 PM PSTI am also not aware of one. I wonder if they were confusing it with the MRI compatible devices? But if he finds out the name, he should let us know so we can check with lumber buyer to confirm and we will have learned helpful new information. ...........................................PARISA Pereyra on 11/03/16 at 15:49 Electronically signed by PARISA Velazquez at 6 3:50 PM PSTTelephone Encounter - Kailey Pruitt RN - 11/02/2016 5:16 PM PSTPatient roman d advising he needs to use a TENS unit and has heard their is a new pacemaker out which woul d allow use of the TENS unit to control pain. He states he does not use narcotics and that i s his only pain relief. He heard someone online about this device, which he could not name a nd wants his pacemaker taken out and replaced. Advised him I was not aware of one but that i would check with PARISA Velazquez and Daljit Singletary MD when they return to see if th ey are aware of it. He states he is also going to check with [place]. Electronically signed by: Kailey Pruitt RN 11/02/2016 17:19 documented in this encounter Plan of Treatment [...] | | | | | | [place] [id number] | | | | | | [phone] | | | | | | | | +--------+ + + + + documented as of this encounter Visit Diagnoses Not on filedocumented in this encounter"
--- OUTSIDE RECORDS SUMMARY | ~2020-06-03 | XMS | Encounter Summary ---
Demographics + + + | Address | [address] | | | [place] [address] | + + + | Home Phone [...] Team Providers + +------+ + | Care Civil Engineering Intern Name | Role | Phone [...] | | | | CENTER [address] | [address] | (Primary Dx) | | | | [place], [place] | [place], [place] | | | | | [address] | [address] | | | | | [phone] | | | +--------+ + + + [...] Hart MD - 06/21/2018Please follow-up with the Meograph. Return for dizziness, chest pain, shortness of [...] + + + +---------+ + + | Orlando-3 Fatty | CAPS, one capsule by | [...] documented as of this encounter ED Notes Martell Hart MD - 06/21/2018 12:59 PM PDTFormatting of this note might be d ifferent from the original. [facility] Moe Sanchez Emergency Department Encounter Note [address] [place] [address] PCP:Kirk French MD [phone] eMERGENCY dEPARTMENT eNCOUnter CHIEF COMPLAINT Chief Complaint Patient presents with Chest Pain TRIAGE ED Triage Notes, ED Triage Notes Marty Ramirez RN 06/21/2018 10:47 Intermittent Chest pain and palpitations increasing x 6 months. Was seen yesterday and was to be admitted but left AMA to take care of animals at home. HPI Moe Sanchez is a 58 y.o. male who presents patient with chest pain. He's been having increasing amounts of chest pain as well as some palpitations over the last 2-3 days . He's here for further evaluation. He states yesterday he had episode of palpitations whe re he felt weak and dizzy. Stand up. He also had some twinges of chest pain last night. H e's here for further evaluation. Pt states he has episodes of some palpitations and these events over the last 3-4 days. PAST MEDICAL HISTORY Past Medical History: Diagnosis Date Abdominal [...] 08/26/2010 Tobacco user Tuberculosis Ulcerative colitis (HCC) SURGICAL HISTORY Past Surgical History: Procedure Laterality Date ABDOMINAL ADHESION SURGERY ABLATION Bilateral 04/03/2013 x3 APPENDECTOMY 2005 [place] CARDIAC CATHERIZATION 12/25/13 Left COLONOSCOPY N/A 12/24/2017 Procedure: COLONOSCOPY; Surgeon: Emmanuel Daniel MD; Location: [facility] MEDICAL PROCEDURE UNIT HARDWARE REMOVAL KNEE SURGERY 2003 meniscus-right LAMINECTOMY 1991 L3-4 LUMBAR DISCECTOMY 1991 L3-4 LUMBAR FUSION 01/2011 6 spine fusions neck fusion 08/10/2012 [place] NECK SURGERY PACEMAKER PLACEMENT 06/14/09 SHOULDER SURGERY 03/22/13 SINUS SURGERY 1997 SPINAL FUSION STOMACH SURGERY UPPER GASTROINTESTINAL ENDOSCOPY N/A 12/24/2017 Procedure: EGD; Surgeon: Emmanuel Daniel MD; Location: [facility] MEDICAL PROCEDURE UNIT VASECTOMY CURRENT MEDICATIONS Discharge Medication List as of 06/21/2018 13:01 CONTINUE these medications which have NOT CHANGED [...] patient that appointment is due in Cardiology [facility] [...] DOSE, CALL 911Disp-100 tablet, R-3 , Normal Orlando-3 Fatty Acids (SALMON OIL-1000 PO) CAPS, one capsule by mouth daily twice daily ONE TOUCH DELICA LANCETS [facility] Check glucose as needed for hypoglycemiaDisp-100 each, R-3, N ormal pravastatin (PRAVACHOL) 40 MG tablet take 1 tablet by mouth NIGHTLYDisp-90 tablet, R-3, Nor mal promethazine (PHENERGAN) 25 mg tablet Take 25 mg by mouth every 8 hours as needed.Medicatio n has a BLACK BOX Warning or Severe Contraindications. Consult references such as [employer] for further information. rOPINIrole (REQUIP) 1 mg tablet Take 1 tablet by mouth nightly.R-0, Historical Med UNABLE TO FIND Take 1 tablet by mouth Daily. MARINE-N6Bclcjpjswt Med UNCODED MEDICATION Diagnosis: Obstructive Sleep Apnea ICD-9: 327.23 Length of Need: 99 MonthsDisp-1 Device, R-0, [id number] -Nasal Pillows, P8467-Rgdbm Mask, A 7030- Full Face Mask, N2655-Qmursn Humidifier, W1249-Ennfrt Tubing, H9706-Kpvkemij, H8409-Yo instrap A7039/A703 8-Filters valACYclovir (VALTREX) 1 g [...] grumpiness Penicillins Rash Tramadol Hcl Itching FAMILY HISTORY Family History Problem Relation Age of Onset Heart disease Mother Stroke Mother Cancer Father colon,prostate Heart disease Father Heart attack Father Hypertension Father Stroke Father SOCIAL HISTORY Social History Social History Marital status: Spouse [...] PHYSICAL EXAM VITAL SIGNS: Temp: 36.6 C (97.9 F) Pulse: 77 Resp: 18 SpO2: 97 % BP: (!) 157/99 Constitutional: Well developed, Well nourished, Non-toxic appearance. HENT: Normocephalic, Atraumatic, Bilateral external ears normal, Oropharynx moist, No oral exudates, Nose normal. Neck- Normal range of motion, No tenderness, Supple, No stridor. Eyes: PERRL, EOMI, Conjunctiva normal, No discharge. Respiratory: Normal breath sounds, No respiratory distress, No wheezing, No chest tenderne ss. Cardiovascular: Normal heart rate, Normal rhythm, No murmurs, No rubs, No gallops. GI: [...] deficits noted, no facial assymetry noted. Equal drill hand in all extremities EKG Interpretation Interpreted by emergency department physician Rhythm: Atrial paced. Rate: 70 [place]: normal Ectopy: none Conduction: P wave normal, normal QRS ST Segments: normal no elevation, depression, or prolongation. T Waves: no acute change Q Waves: none RADIOLOGY Xr Chest Ap Portable Result Date: 06/21/2018 XR Chest AP Portable 06/21/2018 11:35 AM HISTORY: Chest pain. COMPARISON: Multiple priors. F indings: A left pacemaker is present with leads to the right atrium and right ventricle. Hea rt size is normal. Aorta is normal. Mediastinum is unremarkable. Central pulmonary vasculatu re is normal. The bilateral lungs are clear with no evidence for pleural effusion or pneumot horax. There is fusion hardware in the cervical spine that is partially imaged. IMPRESSION - No acute findings. Dictated and Signed by: Nuno Leigh MD Electronically signed: 11:36 AM Xr Chest Ap Portable Result Date: 06/20/2018 EXAM: XR CHEST AP PORTABLE dated 06/20/2018 7:47 PM HISTORY: assess for infection. Compariso n: February 01, 2018 TECHNIQUE: A single portable view of the chest. FINDINGS: The lungs are sy mmetrically aerated. They are clear. There are no large pleural effusions. There is no pn eumothorax. The cardiac and mediastinal contours are not enlarged. Atrial and ventricular leads from an implanted device on left chest are stable. No acute osseous abnormalities. F usion related changes in the cervical spine. IMPRESSION - No radiographic evidence for acute disease in the chest. Dictated and Signed by: Emmanuel Gibbons MD Electronically signed: 7:51 PM LAB Labs Reviewed B TYPE NATRIURETIC PEPTIDE - Normal LIPASE - Normal PROTIME INR - Normal TROPONIN I - Normal CBC WITH DIFFERENTIAL COMPREHENSIVE METABOLIC PANEL ED COURSE & MEDICAL DECISION MAKING Pertinent Labs & Imaging studies reviewed. (See chart for details) Nursing notes reviewed. Patient has a third troponin here today that is negative and the last 12 hours. His EKG is unremarkable. He has atrial paced rhythm with no sign of ectopy or sign of arrhythmia. Patient patient has ongoing episodes of palpitations I offered to place a Holter monitor on the patient here in the emergency room he wants to go and talk to cardiology directly. He is given further reassurance. He is encouraged follow-up with yeast distiller. Follow-up Information PARISA Lomas In 1 day. Specialty: Nurse Practitioner Contact information: [place] [address] Discharge Medication List as of 06/21/2018 13:01 Discharge Instructions Please follow-up with the yeast distiller. Return for dizziness, chest pain, shortness of br eath. FINAL IMPRESSION 1. Chest pain, unspecified type Acute Portions of this chart may have been created with [employer] voice recognition software. Occasi onal wrong-word or sound-alike substitutions may have occurred due to the inherent granger itations of voice recognition software. Please read the chart carefully and recognize, using context, where these substitutions have occurred Martell Hart MD 06/21/18 1304 Jasbir Verde RN - 06/21/2018 10:43 AM PDTIntermittent Chest pain and palpitations increasing x 6 mon ths. Was seen yesterday and was to be admitted but left AMA to take care of animals at home . documented in this enc ounter Plan of [...] [address] | | | | | | [place], | | | | | | [place] [address] | | | | | | [phone] | | | | | | | [...] | ECG 12 LEAD | STAT | 06/22/2018 | | | | | | 11:48 AM | | | | | [...] W?MRN: | | | | | | [id number] | | | [id number] | | | his | | | [...] | | | ent/60 | | | [id number] | | | -5586- | | | [...] | | | St. | | | [place] | | | y | | | [...] | | | ext. | | | [address] | | | or go | | [...] | | | M.D. | | | [employer] | | | al | | | [...] | | | | | | [employer] | | | | | [...] [address] | [place] | [phone] | | [facility] | | [address] | | | - LABORATORY | | | | + + + + + Marcelina CHOWDHURY (06/21/2018 11:44 AM PDT) + + + [...] [address] | [place] | [phone] | | [facility] | | [address] | | | - LABORATORY | | [...] | [address] | [place] | [phone] | | [facility] | | [address] | | | - LABORATORY | | [...] | | | | | mg/dL | . [facility] | | | | | | MEDICAL | | | | | | CENTER - | | | | | | LABORATORY | | + + + + + + | eGFR if not | >60Comment: GLOMERULAR | >=60 | [facility] | | | | FILTRATION | mL/min/1.73m2 | [facility] | | | BULGARIAN | RATE,ESTIMATED | | MEDICAL | | | | mL/min/1.97m2Ynlh than | | CENTER - | | [...] ST. | [address] | [place], [place] | [phone] | | [facility] | | [address] | | | - LABORATORY | | | | + + + + + CBC with Differential (06/21/2018 11:44 AM PDT) + +-------+ + + + | Component | Value | Ref Range | Performed | Pathologist | | | | | At | Signature | + +-------+ + + + | White Blood | 6.0 | 4.0 - 11.0 K/uL | [facility] | | | Cells | | | [facility] | | | | | | MEDICAL | | | | | | CENTER - | | | | | | LABORATORY | | + +-------+ + + + | Red Blood | 4.87 | 4.30 - 5.70 | [...] ST. | [address] | [place], [place] | [phone] | | [facility] | | [address] | | | - LABORATORY | | [...] + | [facility] | [address] | [place] | [phone] | | [facility] | | [address] | | | - LABORATORY | | [...] MD | | | | | | ([id number]) on 06/22/2018 | | | | | [...]
--- OUTSIDE RECORDS SUMMARY | ~2020-06-03 | XMS | Encounter Summary ---
Demographics + + + | Address | [address] | | | [place] [address] | + + + | Home Phone [...] Team Providers + +------+ + | Care Pneumatic Jack Operator Name | Role | Phone | [...] Services | ogy | Colon | Kirk Guidry, | Gastroenterol | | | Required | | cancer | MD Eva PAULINO | ogy [address] | | | | | screening | [address] | BL[address] | | | | | Diarrhea/ | [address] | [place], [place] | | | | | Rectal | [place], [place] | [address] | | | | | Bleeding | [address] | Phone: | | | | | from [facility] | Phone: | [phone] | | | | | referral. | [phone] | Fax: | | | | | | Fax: | [phone] | | | | | | [phone] | | + + + + + + + Reason for Visit +--------+--------+ + | Reason | Onset | Comments | | | Date | | +--------+--------+ + | Other | 01/21/ | wanted to let us know the [facility] cancelled his | | | 2019 | appointment for a colonoscopy | +--------+--------+ + Encounter Details +--------+ + + + + | Date | Type | Department | Care Team | Description | +--------+ + + + + | 01/21/ | Telephone | [facility] | Kirk French | Other (wanted to let | | 2019 | | [facility] | MD Brea [address] | us know the St. | | | | [facility] [address] | [facility] cancelled his | | | | [address] | [place] [address] | appointment for a | | | | [place], [place] | [phone] | colonoscopy) | | | | [address] | | | | | | [phone] | | | +--------+ + + + [...] Telephone Encounter - Kirk French MD - 01/22/2020 11:27 AM PSTOk to rf as request ed elephone Sia Medrano - 01/22/2020 11:14 AM PSTpatient, is calling again for Other (pawan patel to let us know the [facility] cancelled his appointment for a colonoscopy) and would like a call back. Additional Call Details: Patient state he received a call from [facility] last to wilmer weiner his appointment for colonoscopy due rodríguez virus outbreak. Patient is wanting to see i f its possible for him to get a colonoscopy at our [facility] gastro. Call back at [phone] Sia Vasquez Ext [phone] elephone Encounter - Hailey Girard, Mechanical Car Checker - 01/22/2020 10:59 AM PSTFYI. Electronicall y signed by Hailey Padron, Mechanical Car Checker at 01/22/2020 10:59 AM PSTTelephone Encounter - Vicki Adler - 01/22/2020 8:51 AM PSTFred, is calling regarding Other (pawan patel to let us know the [facility] cancelled his appointment for a colonoscopy) and would like a call back. Additional Call Details: He wanted to let us know and also wanted to let us know that [facility] is going to get a hold of us for him to swallow the camera her at [facility]. If this is a symptom based call, was patient offered triage? Not Applicable If this is a symptom based call and you were unable to immediately transfer the call to a lorraine bellamy wood panel inspector was caller made aware that if at [...] W | | | | | | [place], | | | | | | [place] [address] | | | | | | [phone] | | | | | | | [...]
--- OUTSIDE RECORDS SUMMARY | ~2020-06-03 | XMS | Encounter Summary ---
Demographics + + + | Address | [address] | | | [place] [address] | + + + | Home Phone [...] Providers + +------+ + | Care Assistant Elementary Teacher Name | Role | Phone | [...] | CARDIOLOGY [address] | Interrogation | | | | [place], | [place], | (Primary Dx); | | | | [place] [address] | [place] [address] | Presence of | | | | [phone] | [phone] | permanent cardiac | | | | [...] encounter Procedure Notes Daljit Singletary MD - 11/20/2019 11:59 PM PSTAssociated Order(s): DEVICE INTERROGATION- R EMOTEProcedure(s): DEVICE INTERROGATION- REMOTEPre-Procedure Diagnose(s): Pacemaker reprogra mming/check; Presence of permanent cardiac pacemaker; Sinoatrial node dysfunction (HCC)Date of Remote Interrogation: 09/06/2019 Refer to [employer] documentation and remote PDF scanned into [employer] for remote interrogation re sults. Data collected [...] | | | | | | [place] [address] | | | | | | [phone] | | | | | | | [...] remote PDF scanned into | | | [facility] for remote interrogation results. Data collected [...]
--- OUTSIDE RECORDS SUMMARY | ~2020-06-03 | XMS | Encounter Summary ---
Demographics + + + | Address | [address] | | | [place] [address] | + + + | Home Phone [...] Team Providers + +------+ + | Care Funeral Home Associate Name | Role | Phone | [...] | 08/04/ | Telephone | [facility] [place] | Silvia, | Other (4 week event | | 2017 | | CARDIOLOGY [address] | [place] [address] | monitor ) | | | | [place], | [place], | | | | | [place] [address] | [place] [address] | | | | | [phone] | [phone] | | | | | | | [...] prior to appointment. Will route message to critical care nurse specialist to call and reschedule appointment. ...........................................TOYIN ANDRADE [...] | | | | | | [place] [address] | | | | | | [phone] | | | | | | | | +--------+ + + + + documented as of this encounter Visit Diagnoses Not on filedocumented in this encounter"
--- OUTSIDE RECORDS SUMMARY | ~2020-06-03 | XMS | Encounter Summary ---
Demographics + + + | Address | [address] | | | [place] [address] | + + + | Home Phone [...] Team Providers + +------+ + | Care Integrity Specialist Name | Role | Phone | [...] | Telephone | [facility] [place] | [place], | Blood Pressure (Low | | 2017 | | CARDIOLOGY [address] | Janeen RECIPROCATING DRILL OPERATOR [address] | reading) | | | | [place], | [place], | | | | | [place] [address] | [place] [address] | | | | | [phone] | [phone] | | | | | | | [...] | | | | | | [place] [address] | | | | | | [phone] | | | | | | | | +--------+ + + + + documented as of this encounter Visit Diagnoses Not on filedocumented in this encounter
--- OUTSIDE RECORDS SUMMARY | ~2020-06-03 | XMS | Encounter Summary ---
Demographics + + + | Address | [address] [place] [address] [address] | | | [place] [address] | + + + | Home Phone | | + + + | Preferred Language | Unknown | + + + | Marital Status | | + + + | Mu-Ism Affiliation | Unknown | + + + [...] [place] | | | | | [address] | | + + + + + Care Team Providers + +------+ + | Care Financial Services Professional Name | Role | Phone | [...] | | 2020 | | Center at [facility] [address] | MD [address] | | | | | [address] [place] | [place], [place] | | | | | for Health and | [address] | | | | | [facility] 2 | [phone] | | | | | [place], [place] | | | | | | [address] | | | | | | [phone] | | | +--------+ + + + [...]
--- OUTSIDE RECORDS SUMMARY | ~2020-06-03 | XMS | Encounter Summary ---
Demographics + + + | Address | [address] | | | [place] [address] | + + + | Home Phone [...] Team Providers + +------+ + | Care Cutter Tender Name | Role | Phone | + +------+ + | Kirk French MD | PCP | | + +------+ + Reason for Visit + +--------+ + | Reason | Onset | Comments | | | Date | | + +--------+ + | Appointment | 12/09/ | EGD, colon Rescheduled to December 24 due to illness | | | 2017 | | + +--------+ + Encounter Details +--------+ + + + + | Date | Type | Department | Care Team | Description | +--------+ + + + + | 12/09/ | Telephone | [facility] | Emmanuel Daniel MD | Appointment (EGD, | | 2017 | | GASTROENTEROLOGY | [address], [place] | colon Rescheduled to | | | | [address] [place] | [address] [place] | December 24 due to | | | | [address] [place], [place] | [address] | illness) | | | | [address] | | | | | | [phone] | | | +--------+ + + + [...] Telephone Encounter - Kaylynn Copeland RN - 12/09/2017 8:48 AM PSTPatient calls michele gan he has bronchitis and needs to reschedule his upper endoscopy and colonoscopy with Dr. Hieu hernandez on December 10. Rescheduled to December 24 checking in at 10:30 AM. Same day surgery notified and new instructions mailed to patient. documented in this encounter Plan of [...] | | | | | | [place] [address] | | | | | | [phone] | | | | | | | | +--------+ + + + + documented as of this encounter Visit Diagnoses Not on filedocumented in this encounter"
--- OUTSIDE RECORDS SUMMARY | ~2020-06-03 | XMS | Encounter Summary ---
Demographics + + + | Address | [address] | | | [place] [address] | + + + | Home Phone [...] Team Providers + +------+ + | Care Scrap Crane Operator Name | Role | Phone | + +------+ + | Kirk French MD | PCP | | + +------+ + Encounter Details +--------+ + + + + | Date | Type | Department | Care Team | Description | +--------+ + + + + | 11/30/ | Abstract | [facility] [place] | Provider, | | | 2019 | | GASTROENTEROLOGY | [address] | | | | | [address] | [address] [place] | | | | | [address] | [place] [address] | | | | | [address] | | | | | | [phone] | | | +--------+ + + + [...] | | | | | | [place] [address] | | | | | | [phone] | | | | | | | [...] | | | | | Emmanuel Daniel [facility] | | | | + + + [...]
--- OUTSIDE RECORDS SUMMARY | ~2020-06-03 | XMS | Encounter Summary ---
Demographics + + + | Address | [address] | | | [place] [address] | + + + | Home Phone [...] Providers + +------+ + | Care Manager Of Internal Name | Role | Phone | + +------+ + | Kirk French MD | PCP | | + +------+ + Encounter Details +--------+ + + + + | Date | Type | Department | Care Team | Description | +--------+ + + + + | 04/25/ | Abstract | [facility] | [place], | | | 2020 | | CARDIOLOGY [address] | | | | | [place], | [place], | | | | | [place] [address] | [place] [address] | | | | | [phone] | | | | | | | [...] | | | | | | [place] [address] | | | | | | [phone] | | | | | | | | +--------+ + + + + documented as of this encounter Procedures + +--------+ + + + | Procedure Name | Priori | Date/Time | Associated Diagnosis | Comments | | | ty | | | | + +--------+ + + + | EXTERNAL LAB: [facility] | Routin | 01/05/2020 | | Results for this | | | e | | | procedure are in the | | | | | | results section. | + +--------+ + + + | EXTERNAL LAB: | Routin | 01/05/2020 | | Results for this | | GLUCOSE | e | | | procedure are in the | | | | | | results section. | + +--------+ + + + | EXTERNAL LAB: ALT | Routin | 01/05/2020 | | Results for this | | | e | | | procedure are in the | | | | | | results section. | + +--------+ + + + | EXTERNAL LAB: AST | Routin | 01/05/2020 | | Results for this | | | e | | | procedure are in the | | | | | | results section. | + +--------+ + + + | EXTERNAL LAB: | Routin | 01/05/2020 | | Results for this | | ALKALINE PHOSPHATASE | e | | | procedure are in the | | | | | | results section. | + +--------+ + + + | EXTERNAL LAB: | Routin | 01/05/2020 | | Results for this | | BILIRUBIN, TOTAL | e | | | procedure are in the | | | | | | results section. | + +--------+ + + + | EXTERNAL LAB: | Routin | 01/05/2020 | | Results for this | | ALBUMIN | e | | | procedure are in the | | | | | | results section. | + +--------+ + + + | EXTERNAL LAB: | Routin | 01/05/2020 | | Results for this | | PROTEIN, TOTAL | e | | | procedure are in the | | | | | | results section. | + +--------+ + + + | EXTERNAL LAB: | Routin | 01/05/2020 | | Results for this | | CALCIUM | e | | | procedure are in the | | | | | | results section. | + +--------+ + + + | EXTERNAL LAB: CARBON | Routin | 01/05/2020 | | Results for this | | DIOXIDE | e | | | procedure are in the | | | | | | results section. | + +--------+ + + + | EXTERNAL LAB: | Routin | 01/05/2020 | | Results for this | | CHLORIDE | e | | | procedure are in the | | | | | | results section. | + +--------+ + + + | EXTERNAL LAB: | Routin | 01/05/2020 | | Results for this | | POTASSIUM | e | | | procedure are in the | | | | | | results section. | + +--------+ + + + | EXTERNAL LAB: SODIUM | Routin | 01/05/2020 | | Results for this | | | e | | | procedure are in the | | | | | | results section. | + +--------+ + + + | EXTERNAL LAB: CBC | Routin | 01/05/2020 | | Results for this | | | e | | | procedure are in the | | | | | | results section. | + +--------+ + + + | EXTERNAL LAB: EGFR | Routin | 01/05/2020 | | Results for this | | | e | | | procedure are in the | | | | | | results section. | + +--------+ + + + | EXTERNAL LAB: | Routin | 01/05/2020 | | Results for this | | CREATININE | e | | | procedure are in the | | | | | | results section. | + +--------+ + + + | CBC WITH | Routin | 01/05/2020 | | Results for this | | DIFFERENTIAL | e | | | procedure are in the | | | | | | results section. | + +--------+ + + + | COMPREHENSIVE | Routin | 01/05/2020 | | Results for this | | METABOLIC PANEL | e | | | procedure are in the | | | | | | results section. | + +--------+ + + + documented in this encounter Results CBC with Differential (01/05/2020) + + + + + + | Component | Value | Ref Range | Performed | Pathologist | | | | | At | Signature | + + + + + + | MCH | 35.0 (A) | 27.0 - 33.0 pg | | | + + + + + + | MCHC | 35.0 | 30.0 - 36.0 | | | | | | g/dL | | | + + + + + + | % Basophils | 1.1 | 0.0 - 2.0 % | | | + + + + + + + + | Specimen | + + | Blood | + + External Lab: CBC (01/05/2020) + + + + + + | Component | Value | Ref Range | Performed | Pathologist | | | | | At | Signature | + + + + + + | WBC, | 7.9 | 4.5 - 11 | EXTERNAL | | | External | | | LAB | | + + + + + + | HGB, | 15.3 | 13.5 - 18 | EXTERNAL | | | External | | | LAB | | + + + + + + | HCT, | 44.3 | 41 - 50 | EXTERNAL | | | External | | | LAB | | + + + + + + | PLT, | 158 | 140 - 440 | EXTERNAL | | | External | | | LAB | | + + + + + + | Neutrophils | 57.1 | 39 - 80 | EXTERNAL | | | %, | | | LAB | | | External | | | | | + + + + + + | Lymphocytes | 26.8 | 24 - 44 | EXTERNAL | | | %, | | | LAB | | | External | | | | | + + + + + + | Monocytes | 13.0 (A) | 0 - 12 | EXTERNAL | | | %, External | | | LAB | | + + + + + + | Eosinophils | 2.0 | 0 - 6 | EXTERNAL | | | %, | | | LAB | | | External | | | | | + + + + + + | RBC, | 4.40 | 4.3 - 5.7 | EXTERNAL | | | External | | | LAB | | + + + + + + | MCV, | 101 (A) | 81 - 99 | EXTERNAL | | | External | | | LAB | | + + + + + + | RDW, | 12.3 | 10.5 - 15 | EXTERNAL | | | External | | | LAB | | + + + + + + + +---------+ + + | Performing | Address | City/State/Zipcode | Phone Number | | Organization | | | | + +---------+ + + | EXTERNAL LAB | | | | + +---------+ + + Comprehensive Metabolic Panel (01/05/2020) + +-------+ + + + | Component | Value | Ref Range | Performed | Pathologist | | | | | At | Signature | + +-------+ + + + | Anion Gap | 13 | 7 - 21 mmol/L | | | + +-------+ + + + | Bun/Creatin | 23.0 | 6.0 - 28.6 | | | | ine | | | | | + +-------+ + + + | Globulin | 2.5 | 1.8 - 3.5 | | | + +-------+ + + + | Albumin/Sandee | 1.6 | 1.1 - 2.4 | | | | bulin Ratio | | | | | + +-------+ + + + + + | Specimen | + + | Blood | + + External Lab: BUN (01/05/2020) + +-------+ + + + | Component | Value | Ref Range | Performed | Pathologist | | | | | At | Signature | + +-------+ + + + | BUN, | 20 | 6 - 23 | EXTERNAL | | | External | | | LAB | | + +-------+ + + + + +---------+ + + | Performing | Address | City/State/Zipcode | Phone Number | | Organization | | | | + +---------+ + + | EXTERNAL LAB | | | | + +---------+ + + External Lab: Glucose (01/05/2020) + +---------+ + + + | Component | Value | Ref Range | Performed | Pathologist | | | | | At | Signature | + +---------+ + + + | Glucose, | 105 (A) | 70 - 100 | EXTERNAL | | | External | | | LAB | | + +---------+ + + + + +---------+ + + | Performing | Address | City/State/Zipcode | Phone Number | | Organization | | | | + +---------+ + + | EXTERNAL LAB | | | | + +---------+ + + External Lab: ALT (01/05/2020) + +-------+ + + + | Component | Value | Ref Range | Performed | Pathologist | | | | | At | Signature | + +-------+ + + + | ALT, | 22 | 7 - 52 | EXTERNAL | | | External | | | LAB | | + +-------+ + + + + +---------+ + + | Performing | Address | City/State/Zipcode | Phone Number | | Organization | | | | + +---------+ + + | EXTERNAL LAB | | | | + +---------+ + + External Lab: AST (01/05/2020) + +-------+ + + + | Component | Value | Ref Range | Performed | Pathologist | | | | | At | Signature | + +-------+ + + + | AST, | 24 | 13 - 39 | EXTERNAL | | | External | | | LAB | | + +-------+ + + + + +---------+ + + | Performing | Address | City/State/Zipcode | Phone Number | | Organization | | | | + +---------+ + + | EXTERNAL LAB | | | | + +---------+ + + External Lab: Alkaline Phosphatase (01/05/2020) + +-------+ + + + | Component | Value | Ref Range | Performed | Pathologist | | | | | At | Signature | + +-------+ + + + | ALP, | 54 | 31 - 120 | EXTERNAL | | | External | | | LAB | | + +-------+ + + + + +---------+ + + | Performing | Address | City/State/Zipcode | Phone Number | | Organization | | | | + +---------+ + + | EXTERNAL LAB | | | | + +---------+ + + External Lab: Bilirubin, Total (01/05/2020) + +-------+ + + + | Component | Value | Ref Range | Performed | Pathologist | | | | | At | Signature | + +-------+ + + + | Bilirubin, | 0.5 | 0 - 1.2 | EXTERNAL | [...] + +---------+ + + External Lab: Albumin (01/05/2020) + +-------+ + + + | Component [...] +---------+ + + External Lab: Protein, Total (01/05/2020) + +-------+ + + + | Component | Value | Ref Range | Performed | Pathologist | | | | | At | Signature | + +-------+ + + + | Protein, | 6.6 | 6 - 8.3 | EXTERNAL | | | Total, | | | LAB | | | External | | | | | + +-------+ + + + + +---------+ + + | Performing | Address | City/State/Zipcode | Phone Number | | Organization | | | | + +---------+ + + | EXTERNAL LAB | | | | + +---------+ + + External Lab: Calcium (01/05/2020) + +-------+ + + + | Component | Value | Ref Range | Performed | Pathologist | | | | | At | Signature | + +-------+ + + + | Calcium, | 9.2 | 8.5 - 10.3 | EXTERNAL | | | External | | | LAB | | + +-------+ + + + + +---------+ + + | Performing | Address | City/State/Zipcode | Phone Number | | Organization | | | | + +---------+ + + | EXTERNAL LAB | | | | + +---------+ + + External Lab: Carbon Dioxide (01/05/2020) + +-------+ + + + | Component [...] + +---------+ + + External Lab: Chloride (01/05/2020) + +-------+ + + + | Component | Value | Ref Range | Performed | Pathologist | | | | | At | Signature | + +-------+ + + + | Chloride, | 105 | 95 - 112 | EXTERNAL | | | External | | | LAB | | + +-------+ + + + + +---------+ + + | Performing | Address | City/State/Zipcode | Phone Number | | Organization | | | | + +---------+ + + | EXTERNAL LAB | | | | + +---------+ + + External Lab: Potassium (01/05/2020) + +-------+ + + + | Component | Value | Ref Range | Performed | Pathologist | | | | | At | Signature | + +-------+ + + + | Potassium, | 3.9 | 3.6 - 5.1 | EXTERNAL | | | External | | | LAB | | + +-------+ + + + + +---------+ + + | Performing | Address | City/State/Zipcode | Phone Number | | Organization | | | | + +---------+ + + | EXTERNAL LAB | | | | + +---------+ + + External Lab: Sodium (01/05/2020) + +-------+ + + + | Component | Value | Ref Range | Performed | Pathologist | | | | | At | Signature | + +-------+ + + + | Sodium, | 139 | 132 - 143 | EXTERNAL | | | External | | | LAB | | + +-------+ + + + + +---------+ + + | Performing | Address | City/State/Zipcode | Phone Number | | Organization | | | | + +---------+ + + | EXTERNAL LAB | | | | + +---------+ + + External Lab: eGFR (01/05/2020) + +-------+ + + + | Component | Value | Ref Range | Performed | Pathologist | | | | | At | Signature | + +-------+ + + + | eGFR, | 90 | | EXTERNAL | | | External [...] + +---------+ + + External Lab: Creatinine (01/05/2020) + +-------+ + + + | Component | Value | Ref Range | Performed | Pathologist | | | | | At | Signature | + +-------+ + + + | Creatinine, | 0.87 | 0.7 - 1.25 | EXTERNAL | | | External | [...]
--- OUTSIDE RECORDS SUMMARY | ~2020-06-03 | XMS | Encounter Summary ---
Demographics + + + | Address | [address] | | | [place] [address] | + + + | Home Phone [...] Team Providers + +------+ + | Care Activities Aide Name | Role | Phone | + +------+ + | Michael Amanda DO | PCP | | + +------+ + Encounter Details +--------+ + + + + | Date | Type | Department | Care Team | Description | +--------+ + + + + | 02/27/ | Hospital | [facility] | Shelly Carter DO | Chest pain; | | 2013 - | Encounter | [facility] | [address] | Pacemaker; | | | | CLINICAL DECISION | [place] [address] | Mild dehydration | | 02/28/ | | [address] | [phone] | | | 2013 | | [place], [place] | | | | | | [address] | | | | | | [phone] | | | +--------+ + + + [...] Service: Hospitalist Author Type: Physician Filed: 03/06/14 8903 Date of Service: 02/28/145 Status: Addendum Retail Stock Clerk: Dev Montano MD (Physician) Related Notes: Original Note by Dev Montano MD (Physician) filed at 02/28/14 4587 Patient ID: Pina Gay [id number] 54 y.o. 1960 Admit date: 02/27/2014 Discharge [...] - 99 mg/dL Final Testing performed at [address] [address] BUN Date Value Range Status 02/28/2014 15 8 - 25 mg/dL Final Testing performed at [address] [address] CREATININE Date Value Range Status 02/28/2014 0.74 0.70 - 1.30 mg/dL Final Testing performed at [address] [address] BUN/CREAT Date Value Range Status 02/28/2014 20 Final Testing performed at [address] [address] TOTAL PROTEIN Date Value Range Status 02/28/2014 6.1* 6.3 - 8.2 g/dL Final Testing performed at [address] [address] GLOBULIN Date Value Range Status 02/28/2014 2.1 1.3 - 4.9 g/dL Final Testing performed at [address] [address] TBIL Date Value Range Status 02/28/2014 1.4 0.1 - 1.5 mg/dL Final Testing performed at [address] [address] ALT Date Value Range Status 02/28/2014 27 10 - 65 U/L Final Testing performed at [address] [address] AST Date Value Range Status 02/28/2014 31 10 - 45 U/L Final Testing performed at [address] [address] SODIUM Date Value Range Status 02/28/2014 138 135 - 143 mmol/L Final Testing performed at [address] [address] POTASSIUM Date Value Range Status 02/28/2014 3.4* 3.5 - 4.9 mmol/L Final Testing performed at [address] [address] CHLORIDE Date Value Range Status 02/28/2014 108 99 - 109 mmol/L Final Testing performed at [address] [address] CO2 Date Value Range Status 02/28/2014 21* 23 - 32 mmol/L Final Testing performed at [address] [address] ANION GAP AGAP Date Value Range Status 02/28/2014 12 5 - 20 mmol/L Final Testing performed at [address] [address] Xr Chest Pa And Lateral 02/27/2014 PINA [...] 3-D reconstructi ons were performed using the [email or web address] 3-D software and sent to PACS. Oral Contrast: None I V contrast: 100 mL IsoVue 370 COMPARISON: None. FINDINGS: CHEST: The presales consultant view shows a p acemaker via left [...] pacemaker, who came to the emergency depar tment yesterday complaining of chest pain which started [...] catheterization recently done by Dr. Singletary in [place] in December 2013 at [facility] which showed minimal occlusive disease. One artery was 25% and another was 15%, per patient. I requested official cardiac catheterization report from [place] and still waiting for it to come. 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 You may get these medications from any pharmacy. amLODIPine 5 MG tablet pantoprazole 40 MG tablet Activity: activity as tolerated Diet: cardiac diet Wound Care: not applicable There are no Patient Instructions on file for this visit. Per Pt None Chaka Ortiz MD [address] [facility] [address] In 1 week Ariel Pulido MD [address] [facility] [phone] In 1 week Daljit Singletary MD [address] [facility] [address] In 1 week Signed: DEV MONTANO 02/28/2014 10:45 AM Addendum:ADDENDUM I just received a cardiac catheterization report from [facility], [place], which was done on December 25, 2013. [...] from the original. Nurse Progress Note by Jessica Sosa RN at 02/28/141210 Author: Jessica Sosa RN Service: (none) Author Type: Registered Nurse Filed: 02/28/141211 Date of Service: 02/28/141210 Status: Signed Retail Stock Clerk: Jessica Sosa RN (Registered Nurse) Discharge instructions given [...] 02/28/1411 Date of Service: 02/28/1411 Status: Signed Retail Stock Clerk: Mary Wetzel [facility] (Pharmacist) Clinical Pharmacy Note: Renal Monitoring Pina [...] per P & T c ommittee. Mary Wetzel, Jose 02/28/2014 12:11 AM docume nted in this encounter H&P Notes Shelly Carter DO - 02/27/2014 7:53 PM PDTFormatting of this note might be different from t he original. H&P by Shelly Carter DO at 02/27/141952 Author: Shelly Carter DO Service: (none) Author Type: Physician Filed: 02/27/142125 Date of Service: 02/27/141952 Status: Signed Retail Stock Clerk: Shelly Carter DO (Physician) [facility] Service: Hospitalist Admission History & Physical Date of Admission: 02/27/2014 Primary Care Physician: PER PT NONE Reason for Admission: Active Problems: Chest pain Hypokalemia HTN (hypertension) Dyslipidemia Diarrhea History Obtained From: patient CHIEF COMPLAINT: Chest pain HISTORY OF PRESENT ILLNESS The patient is a 54 y.o. male with significant past medical history of HTN, Dyslipidemia, Back pain, Arrhythmia and Pacer who presents with a CC of chest pain. Onset was 6 hours ago, with resolved course since that time. The patient describes the pain as intermittent, press ure like in nature, radiates to the upper back. Patient rates pain as a 8/10 in intensity. Associated symptoms are dyspnea, near-syncope and diaphoresis. Aggravating factors are stand ing. Alleviating factors are: none. Patient's cardiac risk factors are none. Patient's ris k factors for DVT/PE: none. Previous cardiac testing: Cardiac cath December 2013 at [facility]. Presently, patient denies chest pain, SOB, PAULINO, nausea, vomiting. No recent weight gain or loss, night sweats x 3 nights, constipation, diarrhea, dysuria, polydipsia, polyuria, hea t or cold intolerance. Diarrhea x 2 days, brown in color, 4 stool in the last 24 hours, taki ng Imodium to control it. Patient has not taken any antibiotics. [facility], stopped all pain medication 3 weeks ago, only on phenergan and Marinol. Drinks a lot o f water. Condition acute and severe in severity. Took Nitro and Aspirin. ER findings: K 3.4 ER treatment: Lorazepam IV. REVIEW OF SYSTEMS as above, a total of 12 systems reviewed, otherwise, negative. Past Medical History Diagnosis Date Hyperlipidemia Hypertension Back pain Other chronic pain PVC (premature ventricular contraction) Past Surgical History Procedure Date Spine surgery Abdominal surgery adhesions removed Appendectomy Pacemaker insertion Laser ablation x3 Cardiac catheterization Allergies Allergen Reactions Biaxin (Clarithromycin) Rash Penicillins Palpitations Vicodin (Hydrocodone-Acetaminophen) Other (See Comments) "makes me very irritable" Prior to Admission medications Medication Sig Start Date End Date Taking? Authorizing Provider aspirin 81 MG EC tablet Take 81 mg by mouth daily with breakfast. Yes Historical Provider CLONIDINE HCL PO Take by mouth 3 (three) times daily as needed. Yes Historical Provider Diltiazem HCl Coated Beads (DILTIAZEM HCL CD PO) Take by mouth daily. Yes Historical Pro vider METOPROLOL TARTRATE PO Take by mouth daily. Yes Historical Provider PRAVASTATIN SODIUM PO Take by mouth daily. Yes Historical Provider UNKNOWN TO PATIENT daily. "some herbal stuff" Yes Historical Provider History reviewed. No pertinent family history. History Social History Marital Status: Spouse Name: N/A Number of Children: N/A Years of Education: N/A Occupational History Not on file. Social History Main Topics Smoking status: Never Smoker Smokeless tobacco: Not on file Alcohol Use: No Drug Use: Yes Special: Marijuana Comment: "I eat weed" Sexually Active: Other Topics Concern Not on file Social History Narrative No narrative on file History Smoking status Never Smoker Smokeless tobacco Not on file History Alcohol Use No PHYSICAL EXAM Vital Signs: BP 156/92 | Pulse 84 | Temp 98.3 F (36.8 C) (Oral) | Resp 18 | Wt 124.739 kg (275 lb) | SpO2 98% General Appearance: A & O x 3, no distress, appears stated age Head: Normocephalic, without obvious abnormality, atraumatic Eyes: PERRL, conjunctiva/corneas clear, EOM's intact. Ears: Normal external ear canals, no otorrhea Nose: Nares normal, no drainage or sinus tenderness Throat: Lips, mucosa, and tongue normal; gums normal Neck: Supple, symmetrical, trachea; no carotid bruit or JVD Back: Symmetric, no curvature, ROM normal, no CVA tenderness Lungs: Clear to auscultation bilaterally, respirations unlabored Chest Wall: No tenderness or deformity Heart: Regular rate and rhythm, S1 and S2 normal, no murmur, rub or gallop Abdomen: Soft, non-tender, bowel sounds active all four quadrants, no masses, no organomegaly Genitalia: Deferred Rectal: Deferred Extremities: Upper extremities no clubbing/ cyanosis/ erythema Lower extremities at raumatic, no cyanosis or edema Pulses: 2+ and symmetric all extremities Skin: Skin warm, texture and turgor normal, no rashes or lesions Lymph nodes: No gross lymphadenopathy. Neurologic: Psychiatric: CNII-XII intact, normal strength, sensation normal Affect/ mood normal, behavior and judgement normal DATA Results Procedure Component Value Units Date/Time Cardiac Panel [[id number]] (Abnormal) Collected:02/27/14 1747 WBC 10.1 K/uL Updated:02/27/14 1823 RBC 5.19 M/uL HGB 16.8 g/dL HCT 49.5 % MCV 95.4 fl MCH 32.4 pg MCHC 34.0 g/dL RDW SD 46.8 fl PLT 179 K/uL MPV 8.6 fl DIFF TYPE AUTOMATED NEUTROPHILS 62.4 % LYMPHOCYTES 26.3 % MONOCYTES 10.3 % EOSINOPHILS 0.5 % BASOPHILS 0.5 % NEUTROPHILS ABS 6.3 K/uL LYMPHOCYTES ABS 2.7 K/uL MONOCYTES ABS 1.0 (H) K/uL EOSINOPHILS ABS 0.0 K/uL BASOPHILS ABS 0.1 K/uL SODIUM 139 mmol/L POTASSIUM 3.4 (L) mmol/L CHLORIDE 108 mmol/L CO2 21 (L) mmol/L ANION GAP AGAP 14 mmol/L GLUCOSE 124 (H) mg/dL BUN 20 mg/dL CREATININE 0.97 mg/dL BUN/CREAT 21 CALCIUM 8.7 mg/dL TOTAL PROTEIN 7.6 g/dL Albumin 4.2 g/dL GLOBULIN 3.4 g/dL A/G 1.2 TBIL 1.1 mg/dL ALK PHOS 77 U/L AST 35 U/L ALT 43 U/L EGFR >60 mL/min/1.73m2 CPK 510 (H) U/L INR 1.0 APTT 24 seconds MMB 9.3 (H) ng/mL CK-MB Index 1.8 TSH [[id number]] Collected:02/27/141746 Specimen Information:Blood Updated:02/27/14 1823 TSH 0.91 uIU/mL BNP [[id number]] Collected:02/27/141746 Specimen Information:Blood Updated:02/27/141816 BRAIN NATRIURETIC PEPTIDE 5.7 pg/mL Lab 02/27/141746 CKTOTAL 510* TROPONINI 0.00 CKMBINDEX 1.8 IMAGING: Xr Chest Pa And Lateral 02/27/2014 PINA [...] lower cervical anterior and posterior fusion noted. : Atrial paced rhythm VR 78 PROBLEM LIST Active Problems: Chest pain Hypokalemia HTN (hypertension) Dyslipidemia Diarrhea PLAN Admit for Observation Unclear etiology may be secondary to narcotic withdrawal, as patient took one Vicoden 2 to 3 nights ago vs aneurism vs prinzmetal angina vs Esophageal type of pain. Patient advice no t to take any pain medication from his . Aspirin, Beta edvin if tolerated. Cardiac Enz ymes x 3 with troponin every 6 hours, will no do stress test as patient had a cardiac cath 2 months agoWill check CTA for aneurism. Will request records from Dr Brasher. Replace as needed Resume home medication Resume Pravastatin Will check for C difficile, though unlikely. This may be causing dehydration and hypokalemi a. AM labs. GI and DVT prophylaxis. Plan of care was discussed with patient. Questions answered. Patient verbalized bryce guevara Other recommendations for management of this patient will be dependent upon the patient's c linical course. Dictation software, [employer], used which may contain error for similar sounding words even af ter review. Personal communication requested for any clarification. SHELLY CARTER DO 02/27/2014 9:23 PM documented in this enco unter ED Notes Conversion Transaction, Provider Unknown - 02/27/2014 8:15 PM PDTFormatting of this note m ight be different from the original. ED Notes by Doris Romero RN at 02/27/142014 Author: Doris Romero RN Service: (none) Author Type: Registered Nurse Filed: 02/27/142025 Date of Service: 02/27/142014 Status: Signed Retail Stock Clerk: Doris Romero RN (Registered Nurse) Dr Carter at bedside. Doris Romero RN 02/27/142025 oEliel madrid MD - 02/27/2014 5:18 PM PDT ED Provider Notes by Eliel Calzada DO at 02/27/141717 Author: Eliel Calzada DO Service: (none) Author Type: Physician Filed: 03/01/14 4981 Date of Service: 02/27/141717 Status: Signed Retail Stock Clerk: Eliel Calzada DO (Physician) [facility] Department of Emergency Medicine 02/27/2014 5:47 PM History of Present Illness Patient Identification Pina Gay is a 54 y.o. male. Patient information was obtained from patient. History/Exam limitations: none. Patient presented to the Emergency Department by: Car Chief Complaint Chief Complaint Patient presents with Chest Pain Pt presents to the ED with complaints of chest pain. 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 Severity is described as moderate. The patient reports he wa s talking with his friend when the CP suddenly onset. He describes his CP has a chest "tight ness" and "pressure". The pt also complains of being clammy and sweaty when his sx onset. He reports the chest tightness caused him to become SOB and almost brought him to his knees. C are prior to arrival consisted of NTG. He reports no immediate improvement of sx but feels i mprovement in sx now. Pt states his sx feel similar to when he had previous problems with hi s heart. He denies fever, cough, abdominal pain, nausea or any other sx at this time. Past Medical History Diagnosis Date Hyperlipidemia Hypertension Back pain Other chronic pain PVC (premature ventricular contraction) Past Surgical History Procedure Date Spine surgery Abdominal surgery adhesions removed Appendectomy Pacemaker insertion Laser ablation x3 Cardiac catheterization Prior to Admission medications Not on File Allergies Allergen Reactions Biaxin (Clarithromycin) Rash Penicillins Palpitations Vicodin (Hydrocodone-Acetaminophen) Other (See Comments) "makes me very irritable" History Social History Marital Status: Spouse Name: N/A Number of Children: N/A Years of Education: N/A Occupational History Not on file. Social History Main Topics Smoking status: Never Smoker Smokeless tobacco: Not on file Alcohol Use: No Drug Use: Yes Special: Marijuana Comment: "I eat weed" Sexually Active: Other Topics Concern Not on file Social History Narrative No narrative on file History reviewed. No pertinent family history. Review of Systems Constitutional: Positive for: clammy and sweaty Negative for: fever or chills Cardiovascular: Positive for: chest pain Respiratory: Positive for: shortness of breath Negative for: cough Gastrointestinal: Negative for: vomiting or abdominal pain Genitourinary: Negative for: dysuria, flank pain, or hematuria Musculoskeletal: Negative for: myalgias or arthralgias Skin: Negative for: rash or lesion Neuro and psych: Negative for: fainting or dizziness All other systems were reviewed and are subjectively reported as negative. Physical Exam BP 144/108 | Pulse 82 | Temp 98.3 F (36.8 C) (Oral) | Resp 18 | Wt 124.739 kg (275 lb) | SpO2 97% Vitals: Hypertensive otherwise normal Pulse Oximetry Interpretation: Normal General: Alert, no active distress and not requiring any emergent interventions Eyes: Normal inspection, pupils equal and round, non-icteric sclera ENT: Ears normal Nose normal without discharge or drainage Pharynx normal with no exudates or discharge Neck: Normal inspection with no lymphadenopathy Supple Full ROM No carotid bruit with midline trachea Cardiovascular: Normal rate and rhythm, no extra sounds No murmurs rubs or gallops Focal PMI Respiratory: Decreased breath sounds No respiratory distress or wheezing Normal excursion No retractions Abdomen: Soft, non-tender, non-distended Normal active bowel sounds Back: Normal inspection Without tenderness or deformity Skin: Color normal Warm and dry Extremities: MILAN with equal pulses in the upper and lower extremities bilaterally Neuro: No gross motor/sensory deficit GCS 15 No cerebellar deficits Alert and oriented to person, place, time and situation. Medical Decision Making and Emergency Department Course ED Department Course MDM:5:47 PM. Pt presents with chest pain. After introducing myself to the pt, I have perfor med a careful history and physical examination. I have formulated the differential diagnosis that needs to be addressed during this ER visit, briefly discussed this differential with corie white pt, and then discussed with them the plan of care. I have also addressed the risks and be nefits of all diagnostic and treatment modalities planned for this ED visit. Differential di agnosis include but are not limited to: acute CA, unstable angina, thoracic aortic dissectio n, pneumothorax, PE, myocarditis, pericarditis, esophagitis, musculoskeletal disorder, pleur isy vs other.I will order an EKG, urine screen, urine micro, TSH, Troponin, CXR, cardiac tejeda el labs, BNP, and reassess. 5:47 PM Pt going to XR. 6:04 PM Troponin level nl. 6:17 PM BNP is 5.7 6:23 PM TSH is 0.91 7:00 PM I have reviewed all of the pt's lab results. Also reviewed radiologist read of CXR. 7:10 PM Upon review of the patient s history, physical and the results of studies I belie ve that the patient warrants admission to the hospital for further evaluation and treatment. I have spoken with the patient at this time regarding the need for admission to the hospit al, and the patient has expressed understanding of this. I will call and arrange for admiss ion at this time. 8:02 PM Case d/w Dr. Carter (hospitalist) who agrees to admission. She will evaluate the pt in the ED. Filed Vitals: 02/27/14 2159 02/28/14 0202 02/28/14 0504 02/28/14 0810 BP: 135/89 142/76 132/84 Pulse: 77 72 72 74 Temp: 98.6 F (37 C) 97.3 F (36.3 C) 98.4 F (36.9 C) TempSrc: Oral Oral Oral Resp: 18 16 16 Height: 1.93 m (6' 4") Weight: 124.739 kg (275 lb) SpO2: 97% 96% 95% Records Reviewed Nursing notes reviewed for chief complaint, medications, clinical presentation and vital si gns. Previous electrocardiograms which are available on our electronic medical health record wer e used for direct comparison to the electrocardiogram obtained today. Old ED records reviewed (Using the electronic record system of [facility], Bryn caseyy reviewed the records with regard to the past medical/surgical history, previous medic ations, and allergies). Laboratory Evaluation Results Procedure Component Value Ref Range Date/Time Cardiac Panel [[id number]] (Abnormal) Collected:02/27/14 1747 Order Status:Completed Updated:02/27/14 1823 WBC 10.1 3.8 - 11.0 K/uL RBC 5.19 4.20 - 5.70 M/uL HGB 16.8 13.2 - 17.0 g/dL HCT 49.5 39.0 - 50.0 % MCV 95.4 80.0 - 100.0 fl MCH 32.4 27.0 - 34.0 pg MCHC 34.0 32.0 - 35.5 g/dL RDW SD 46.8 37 - 53 fl PLT 179 150 - 400 K/uL MPV 8.6 fl DIFF TYPE AUTOMATED NEUTROPHILS 62.4 % LYMPHOCYTES 26.3 % MONOCYTES 10.3 % EOSINOPHILS 0.5 % BASOPHILS 0.5 % NEUTROPHILS ABS 6.3 1.9 - 7.4 K/uL LYMPHOCYTES ABS 2.7 1.0 - 3.9 K/uL MONOCYTES ABS 1.0 (H) 0 - 0.8 K/uL EOSINOPHILS ABS 0.0 0 - 0.5 K/uL BASOPHILS ABS 0.1 0 - 0.1 K/uL SODIUM 139 135 - 143 mmol/L POTASSIUM 3.4 (L) 3.5 - 4.9 mmol/L CHLORIDE 108 99 - 109 mmol/L CO2 21 (L) 23 - 32 mmol/L ANION GAP AGAP 14 5 - 20 mmol/L GLUCOSE 124 (H) 65 - 99 mg/dL BUN 20 8 - 25 mg/dL CREATININE 0.97 0.70 - 1.30 mg/dL BUN/CREAT 21 CALCIUM 8.7 8.5 - 10.2 mg/dL TOTAL PROTEIN 7.6 6.3 - 8.2 g/dL Albumin 4.2 3.6 - 5.0 g/dL GLOBULIN 3.4 1.3 - 4.9 g/dL A/G 1.2 1.0 - 2.4 TBIL 1.1 0.1 - 1.5 mg/dL ALK PHOS 77 35 - 115 U/L AST 35 10 - 45 U/L ALT 43 10 - 65 U/L EGFR >60 >60 mL/min/1.73m2 CPK 510 (H) 55 - 400 U/L INR 1.0 APTT 24 23 - 32 seconds MMB 9.3 (H) 0.5 - 3.6 ng/mL CK-MB Index 1.8 TSH [[id number]] Collected:02/27/141746 Order Status:Completed Updated:02/27/14 182 Specimen Information:Blood TSH 0.91 0.45 - 5.10 uIU/mL BNP [[id number]] Collected:02/27/141746 Order Status:Completed Updated:02/27/141816 Specimen Information:Blood BRAIN NATRIURETIC PEPTIDE 5.7 0 - 100 pg/mL POC cardiac troponin [[id number]] Collected:02/27/141748 Order Status:Completed Updated:02/27/14 180 POC CARDIAC TROPONIN 0.00 0.00 - 0.10 ng/mL I personally reviewed the lab results and they have been posted to the chart. Pertinent po sitive and negative findings have been addressed appropriately. Radiology and EKG Evaluation EKG from 1722 Normal arterially paced rhythm at 78 bpm Normal [place] and [place] Normal QRS and [place] Normal QT and QTc Normal ST/T without acute ischemic changes Now in pace rhythm in comparison to EKG dated February 08, 2010. Both have no signs of acute ischemia. Interpreted by Eliel Calzada DO. Imaging Results XR Chest PA and Lateral (Final result) Result time:02/27/141831 Final result by Rad Results In Kevin (02/27/14 18:32:41) Impression: 1. No acute findings in the chest to explain chest pain. 2. 2-lead ICD seen over the left chest with intact leads in proper position. 3. Prior lower cervical anterior and posterior fusion noted. Narrative: PINA GAY XR CHEST 2 VIEW FRONTAL AND LATERAL 02/27/2014 5:58 PM HISTORY: 54 years. Male. Chest pain. TECHNIQUE: 2 views obtained. COMPARISON: 05/24/2009. FINDINGS: A 2-lead ICD seen over the left chest with intact leads in proper position. The patient paulino s had prior lower cervical fusion surgery with ACDF plating and screws noted anteriorly and posterior instrumentation also seen. The heart is normal in size. The lungs are normally expanded. The pulmonary vascular alan felecia is normal. No acute airspace disease, parenchymal nodule, mass, pleural effusion or pne umothorax is noted. No hilar adenopathy is seen. The osseous structures are intact. ED Interpretation Documented by Eliel Calzada DO (02/27/14 182, [facility] Emergency Department, Emergency Medicine) Chest X-ray: No acute disease, normal lung markings, no infiltrates, normal heart size, normal mediastinum and great vessels, no fractures or bony lesions, Normal soft tissue with left anterior chest wall device with wires in place. Views: PA and lateral, Good technique Preliminary Interpretation by Eliel Calzada DO ED Diagnoses Final diagnoses Chest pain Pacemaker Mild dehydration Disposition: ED Disposition Admit/Observation Requested Unit:: Acute Care Bed request special needs: None Diagnosis?: chest pain Diagnosis?: atrial pacemaker Follow-up Information Follow up With Details Comments Contact Info Per Pt None Chaka Ortiz MD In 1 week aortic aneurym ON CT chest needs [address] [facility] [address] Ariel Pulido MD In 1 week [address] [facility] [address] Daljit Singletary MD In 1 week [address] [facility] [address] Per Pt None Discharge Medications: New Prescriptions AMLODIPINE (NORVASC) 5 MG TABLET Take 1 tablet by mouth daily. PANTOPRAZOLE (PROTONIX) 40 MG TABLET Take 1 tablet by mouth every morning before breakf ast. Additional Documentation Procedures Attending Note: Documentation assistance provided by Jennifer Nevarez (Scribe). Information recorded by the scribe has been reviewed and validated by me. I ag ree with its contents. DO Eliel Vivar DO 03/01/14 2330 documented in this encounter Miscellaneous Notes Plan of Care - Conversion Transaction, Provider Unknown - 02/28/2014 10:59 AM PDT Plan of Care by Jessica Sosa RN at 02/28/14 105 Author: Jessica Sosa RN Service: (none) Author Type: Registered Nurse Filed: 02/28/14 105 Date of Service: 02/28/141058 Status: Signed Retail Stock Clerk: Jessica Sosa RN (Registered Nurse) Problem: Pain Goal: Patient s pain/discomfort is manageable Assess and monitor patient s pain using appropriate pain scale. Collaborate with interdis ciplinary team and initiate plan and interventions as ordered. Re-assess patient s pain le emy approximately 1-2 hours after pain management intervention. Premedicate as needed. Outcome: Progressing Patient has chronic pain in back. No pain at this time, but he will let me know if her need s anything for pain. Problem: Safety Goal: Patient will be injury free during hospitalization Assess and monitor vitals signs, neurological status including level of consciousness and o rientation. Assess patient s risk for falls and implement fall prevention plan of care and interventions per hospital policy. Ensure arm band on, uncluttered walking paths in room, adequate room lighting, call light a nd overbed table within reach, bed in low position, wheels locked, side rails up per policy, and non-skid footwear provided. Outcome: Progressing Arm band on, skid socks on, rails up 2/4, bed in lowest position, wheels locked, call light within reach. Problem: Daily Care Goal: Daily care needs are met Assess and monitor ability to perform self care and identify potential discharge needs. Outcome: Progressing Patient is independent. Problem: Psychosocial Needs Goal: Demonstrates ability to cope with hospitalization/illness Assess and monitor patients ability to cope with his/her illness. Outcome: Progressing Patient shows positive coping skills. Comments: JESSICA SOSA RN, 02/28/2014 10:59 AM CYdofabio pfeiffer in this encounter Plan of Treatment [...] | | | | | | [place] [address] | | | | | | [phone] | | | | | | | [...] | | | | performed at [facility] | | LAB | | | | [address];[place], [place] | | | | | | [address] | | | | + + + [...] | | | | | | ACUTE CA Testing | | | | | | performed at [facility] | | | | | | [facility];[place], [place] | | | | | | [address] | | | | + + + [...] | LAB | | | | [address], | | | | | | [place] [address] | | | | + + + + + + | Non- | 4.68Comment: Testing | 4.20 - 5.70 | EXTERNAL | | | Red Blood | performed at [facility], [address] | M/uL | LAB | | | Cells | [address], | | | | | Counted | [place] [address] | | | | + + + + + + | Hemoglobin | 15.3Comment: Testing | 13.2 - 17.0 | EXTERNAL | | | | performed at [facility], [address] | g/dL | LAB | | | | [address], | | | | | | [place] [address] | | | | + + + + + + | Hematocrit, | 44.2Comment: Testing | 39.0 - 50.0 % | EXTERNAL | | | POC | performed at [facility], [address] | | LAB | | | | [address], | | | | | | [place] [address] | | | | + + + + + + | MCV | 94.5Comment: Testing | 80.0 - 100.0 fl | EXTERNAL | | | | performed at [facility], [address] | | LAB | | | | [address], | | | | | | [place] [address] | | | | + + + + + + | MCH | 32.6Comment: Testing | 27.0 - 34.0 pg | EXTERNAL | | | | performed at [facility], [address] | | LAB | | | | [address], | | | | | | [place] [address] | | | | + + + + + + | MCHC | 34.5Comment: Testing | 32.0 - 35.5 | EXTERNAL | | | | performed at [facility], [address] | g/dL | LAB | | | | [address], | | | | | | [place] [address] | | | | + + + + + + | RDW-CV | 45.5Comment: Testing | 37 - 53 fl | EXTERNAL | | | | performed at [facility], [address] | | LAB | | | | [address], | | | | | | [place] [address] | | | | + + + + + + | Platelet | 156Comment: Testing | 150 - 400 K/uL | EXTERNAL | | | Count | performed at [facility], [address] | | LAB | | | Plasma | [address], | | | | | | [place] [address] | | | | + + + + + + | MPV | 8.8Comment: Testing | fl | EXTERNAL | | | | performed at [facility], [address] | | LAB | | | | [address], | | | | | | [place] [address] | | | | + + + + + + | Differentia | AUTOMATEDComment: | | EXTERNAL | | | l Type | Testing performed at | | LAB | | | | [facility], [address] | | | | | | [place] | | | | | | [address] | | | | + + + + + + | % Segmented | 57.7Comment: Testing | % | EXTERNAL | | | | performed at [facility], [address] | | LAB | | | Neutrophils | [address], | | | | | | [place] [address] | | | | + + + + + + | % | 31.8Comment: Testing | % | EXTERNAL | | | Lymphocytes | performed at [facility], [address] | | LAB | | | | [address], | | | | | | [place] [address] | | | | + + + + + + | % Monocytes | 9.2Comment: Testing | % | EXTERNAL | | | | performed at [facility], [address] | | LAB | | | | [address], | | | | | | [place] [address] | | | | + + + + + + | % | 0.9Comment: Testing | % | EXTERNAL | | | Eosinophils | performed at [facility], [address] | | LAB | | | | [address], | | | | | | [place] [address] | | | | + + + + + + | % Basophils | 0.4Comment: Testing | % | EXTERNAL | | | | performed at [facility], [address] | | LAB | | | | [address], | | | | | | [place] [address] | | | | + + + + + + | Absolute | 3.9Comment: Testing | 1.9 - 7.4 K/uL | EXTERNAL | | | Segmented | performed at [facility], [address] | | LAB | | | Neutrophils | [address], | | | | | | [place] [address] | | | | + + + + + + | Absolute | 2.1Comment: Testing | 1.0 - 3.9 K/uL | EXTERNAL | | | Lymphocytes | performed at [facility], [address] | | LAB | | | | [address], | | | | | | [place] [address] | | | | + + + + + + | Absolute | 0.6Comment: Testing | 0 - 0.8 K/uL | EXTERNAL | | | Monocytes | performed at [facility], [address] | | LAB | | | | [address], | | | | | | [place] [address] | | | | + + + + + + | Absolute | 0.1Comment: Testing | 0 - 0.5 K/uL | EXTERNAL | | | Eosinophils | performed at [facility], [address] | | LAB | | | | [address], | | | | | | [place] [address] | | | | + + + + + + | Absolute | 0.0Comment: Testing | 0 - 0.1 K/uL | EXTERNAL | | | Basophils | performed at [facility], [address] | | LAB | | | | [address], | | | | | | [place] [address] | | | | + + + [...] EXTERNAL | | | | performed at [facility], [address] | | LAB | | | | [address], | | | | | | [place] [address] | | | | + + + [...] EXTERNAL | | | | performed at [facility], [address] | | LAB | | | | [address], | | | | | | [place] [address] | | | | + + + [...] | | | | performed at [facility] | | LAB | | | | [address];[place] | | | | | | [address] | | | | + + + [...] | | | | | [place] [address] | | | | + + + + + + | Triglycerid | 37Comment: Testing | mg/dL | EXTERNAL | | | es | performed at [facility], [address] | | LAB | | | | [address], | | | | | | [place] [address] | | | | + + + + + + | HDL | 35 (L)Comment: Testing | mg/dL | EXTERNAL | | | | performed at [facility], [address] | | LAB | | | | [address], | | | | | | [place] [address] | | | | + + + + + + | LDL, | 67Comment: Testing | mg/dL | EXTERNAL | | | Calculated | performed at [facility], [address] | | LAB | | | | [address], | | | | | | [place] [address] | | | | + + + [...] | | | | | [place] [address] | | | | + + + + + + | K | 3.4 (L)Comment: Testing | 3.5 - 4.9 | EXTERNAL | | | | performed at [facility], [address] | mmol/L | LAB | | | | [address], | | | | | | [place] [address] | | | | + + + + + + | Cl | 108Comment: Testing | 99 - 109 mmol/L | EXTERNAL | | | | performed at [facility], [address] | | LAB | | | | [address], | | | | | | [place] [address] | | | | + + + + + + | CO2 | 21 (L)Comment: Testing | 23 - 32 mmol/L | EXTERNAL | | | | performed at [facility], [address] | | LAB | | | | [address], | | | | | | [place] [address] | | | | + + + + + + | Anion Gap | 12Comment: Testing | 5 - 20 mmol/L | EXTERNAL | | | | performed at [facility], [address] | | LAB | | | | [address], | | | | | | [place] [address] | | | | + + + + + + | Glucose, | 107 (H)Comment: Testing | 65 - 99 mg/dL | EXTERNAL | | | Fasting | performed at [facility], [address] | | LAB | | | | [address], | | | | | | [place] [address] | | | | + + + + + + | BUN | 15Comment: Testing | 8 - 25 mg/dL | EXTERNAL | | | | performed at [facility], [address] | | LAB | | | | [address], | | | | | | [place] [address] | | | | + + + + + + | Creatinine | 0.74Comment: Testing | 0.70 - 1.30 | EXTERNAL | | | | performed at [facility], [address] | mg/dL | LAB | | | | [address], | | | | | | [place] [address] | | | | + + + + + + | BUN/Creatin | 20Comment: Testing | | EXTERNAL | | | ine Ratio | performed at [facility], [address] | | LAB | | | | [address], | | | | | | [place] [address] | | | | + + + + + + | Calcium | 8.9Comment: Testing | 8.5 - 10.2 | EXTERNAL | | | | performed at [facility], [address] | mg/dL | LAB | | | | [address], | | | | | | [place] [address] | | | | + + + + + + | Protein, | 6.1 (L)Comment: Testing | 6.3 - 8.2 g/dL | EXTERNAL | | | Total | performed at [facility], [address] | | LAB | | | | [address], | | | | | | [place] [address] | | | | + + + + + + | Albumin | 4.0Comment: Testing | 3.6 - 5.0 g/dL | EXTERNAL | | | | performed at [facility], [address] | | LAB | | | | [address], | | | | | | [place] [address] | | | | + + + + + + | Globulin | 2.1Comment: Testing | 1.3 - 4.9 g/dL | EXTERNAL | | | | performed at [facility], [address] | | LAB | | | | [address], | | | | | | [place] [address] | | | | + + + + + + | A/G Ratio | 1.9Comment: Testing | 1.0 - 2.4 | EXTERNAL | | | | performed at [facility], [address] | | LAB | | | | [address], | | | | | | [place] [address] | | | | + + + + + + | Bilirubin | 1.4Comment: Testing | 0.1 - 1.5 mg/dL | EXTERNAL | | | Total | performed at [facility], [address] | | LAB | | | | [address], | | | | | | [place] [address] | | | | + + + + + + | ALP, | 46Comment: Testing | 35 - 115 U/L | EXTERNAL | | | External | performed at [facility], [address] | | LAB | | | | [address], | | | | | | [place] [address] | | | | + + + + + + | AST | 31Comment: Testing | 10 - 45 U/L | EXTERNAL | | | | performed at [facility], [address] | | LAB | | | | [address], | | | | | | [place] [address] | | | | + + + + + + | ALT | 27Comment: Testing | 10 - 65 U/L | EXTERNAL | | | | performed at [facility], [address] | | LAB | | | | [address], | | | | | | [place] [address] | | | | + + + [...] | | | | | | at [facility], [address] | | | | | | [address], | | | | | | [place] [address] | | | | + + + [...] | | | | | | WILIAN ([id number]) on 02/28/2014 | | | | | | 2:24:36 PM | | | | + + + + + + + + | Specimen | + + | | + + + + + | Narrative | Performed At | + + + | Historically converted procedure from [facility] | EXTERNAL LAB | + + + [...] | | | | performed at [facility] | | LAB | | | | [address];[place], [place] | | | | | | [address] | | | | + + + [...] | | | | | | ACUTE CA Testing | | | | | | performed at [facility];[address] | | | | | | [facility];[place], [place] | | | | | | [address] | | | | + + + [...] | | | | performed at [facility];[address] | | LAB | | | | [address];[place], [place] | | | | | | [address] | | | | + + + [...] were | | | performed using the [email or web address] 3-D software and sent to PACS. Oral | | | Contrast: None IV contrast: 100 mL IsoVue 370 COMPARISON: None. | | | FINDINGS: CHEST: The presales consultant view shows a pacemaker via left | [...] reconstructions were performed | | using the [email or web address] 3-D software and sent to PACS. Oral Contrast: NoneIV contrast: 100 | | mL IsoVue 370 COMPARISON:None. FINDINGS: CHEST: The presales consultant view shows a pacemaker via | | [...] Kalpesh Brown Conversion - 07/07/2019 10:30 PM FRANCY LEVINE CHEST 2 VIEW FRONTAL | | [...] | | | | performed at [facility];[address] | | LAB | | | | [address];[place] | | | | | | [address] | | | | + + + + + -+ | Non- | 5.19Comment: Testing | 4.20 - 5.70 | EXTERNAL | | | Red Blood | performed at [facility];[address] | M/uL | LAB | | | Cells | [address];[place] | | | | | Counted | [address] | | | | + + + + + -+ | Hemoglobin | 16.8Comment: Testing | 13.2 - 17.0 | EXTERNAL | | | | performed at [facility];[address] | g/dL | LAB | | | | [address];[place] | | | | | | [address] | | | | + + + + + -+ | Hematocrit, | 49.5Comment: Testing | 39.0 - 50.0 % | EXTERNAL | | | POC | performed at [facility];[address] | | LAB | | | | [address];[place] | | | | | | [address] | | | | + + + + + -+ | MCV | 95.4Comment: Testing | 80.0 - 100.0 fl | EXTERNAL | | | | performed at [facility];[address] | | LAB | | | | [address];[place] | | | | | | [address] | | | | + + + + + -+ | MCH | 32.4Comment: Testing | 27.0 - 34.0 pg | EXTERNAL | | | | performed at [facility];[address] | | LAB | | | | [address];[place] | | | | | | [address] | | | | + + + + + -+ | MCHC | 34.0Comment: Testing | 32.0 - 35.5 | EXTERNAL | | | | performed at [facility];[address] | g/dL | LAB | | | | [address];[place] | | | | | | [address] | | | | + + + + + -+ | RDW-CV | 46.8Comment: Testing | 37 - 53 fl | EXTERNAL | | | | performed at [facility];[address] | | LAB | | | | [address];[place] | | | | | | [address] | | | | + + + + + -+ | Platelet | 179Comment: Testing | 150 - 400 K/uL | EXTERNAL | | | Count | performed at [facility];[address] | | LAB | | | Plasma | [address];[place] | | | | | | [address] | | | | + + + + + -+ | MPV | 8.6Comment: Testing | fl | EXTERNAL | | | | performed at [facility];[address] | | LAB | | | | [address];[place] | | | | | | [address] | | | | + + + + + -+ | Differentia | AUTOMATEDComment: | | EXTERNAL | | | l Type | Testing performed at | | LAB | | | | [facility];[address];[place] [address] | | | | + + + + + -+ | % Segmented | 62.4Comment: Testing | % | EXTERNAL | | | | performed at [facility];[address] | | LAB | | | Neutrophils | [address];[place] | | | | | | [address] | | | | + + + + + -+ | % | 26.3Comment: Testing | % | EXTERNAL | | | Lymphocytes | performed at [facility];[address] | | LAB | | | | [address];[place] | | | | | | [address] | | | | + + + + + -+ | % Monocytes | 10.3Comment: Testing | % | EXTERNAL | | | | performed at [facility];[address] | | LAB | | | | [address];[place] | | | | | | [address] | | | | + + + + + -+ | % | 0.5Comment: Testing | % | EXTERNAL | | | Eosinophils | performed at [facility];[address] | | LAB | | | | [address];[place] | | | | | | [address] | | | | + + + + + -+ | % Basophils | 0.5Comment: Testing | % | EXTERNAL | | | | performed at [facility];[address] | | LAB | | | | [address];[place] | | | | | | [address] | | | | + + + + + -+ | Absolute | 6.3Comment: Testing | 1.9 - 7.4 K/uL | EXTERNAL | | | Segmented | performed at [facility];[address] | | LAB | | | Neutrophils | [address];[place] | | | | | | [address] | | | | + + + + + -+ | Absolute | 2.7Comment: Testing | 1.0 - 3.9 K/uL | EXTERNAL | | | Lymphocytes | performed at [facility];[address] | | LAB | | | | [address];[place] | | | | | | [address] | | | | + + + + + -+ | Absolute | 1.0 (H)Comment: Testing | 0 - 0.8 K/uL | EXTERNAL | | | Monocytes | performed at [facility];[address] | | LAB | | | | [address];[place] | | | | | | [address] | | | | + + + + + -+ | Absolute | 0.0Comment: Testing | 0 - 0.5 K/uL | EXTERNAL | | | Eosinophils | performed at [facility];[address] | | LAB | | | | [address];[place] | | | | | | [address] | | | | + + + + + -+ | Absolute | 0.1Comment: Testing | 0 - 0.1 K/uL | EXTERNAL | | | Basophils | performed at [facility];[address] | | LAB | | | | [address];[place] | | | | | | [address] | | | | + + + + + -+ | Na | 139Comment: Testing | 135 - 143 | EXTERNAL | | | | performed at [facility];[address] | mmol/L | LAB | | | | [address];[place] | | | | | | [address] | | | | + + + + + -+ | K | 3.4 (L)Comment: Testing | 3.5 - 4.9 | EXTERNAL | | | | performed at [facility];[address] | mmol/L | LAB | | | | [address];[place] | | | | | | [address] | | | | + + + + + -+ | Cl | 108Comment: Testing | 99 - 109 mmol/L | EXTERNAL | | | | performed at [facility];[address] | | LAB | | | | [address];[place] | | | | | | [address] | | | | + + + + + -+ | CO2 | 21 (L)Comment: Testing | 23 - 32 mmol/L | EXTERNAL | | | | performed at [facility];[address] | | LAB | | | | [address];[place] | | | | | | [address] | | | | + + + + + -+ | Anion Gap | 14Comment: Testing | 5 - 20 mmol/L | EXTERNAL | | | | performed at [facility];[address] | | LAB | | | | [address];[place] | | | | | | [address] | | | | + + + + + -+ | Glucose, | 124 (H)Comment: Testing | 65 - 99 mg/dL | EXTERNAL | | | Fasting | performed at [facility];[address] | | LAB | | | | [address];[place] | | | | | | [address] | | | | + + + + + -+ | BUN | 20Comment: Testing | 8 - 25 mg/dL | EXTERNAL | | | | performed at [facility];[address] | | LAB | | | | [address];[place] | | | | | | [address] | | | | + + + + + -+ | Creatinine | 0.97Comment: Testing | 0.70 - 1.30 | EXTERNAL | | | | performed at [facility];[address] | mg/dL | LAB | | | | [address];[place] | | | | | | [address] | | | | + + + + + -+ | BUN/Creatin | 21Comment: Testing | | EXTERNAL | | | ine Ratio | performed at [facility];[address] | | LAB | | | | [address];[place] | | | | | | [address] | | | | + + + + + -+ | Calcium | 8.7Comment: Testing | 8.5 - 10.2 | EXTERNAL | | | | performed at [facility];[address] | mg/dL | LAB | | | | [address];[place] | | | | | | [address] | | | | + + + + + -+ | Protein, | 7.6Comment: Testing | 6.3 - 8.2 g/dL | EXTERNAL | | | Total | performed at [facility];[address] | | LAB | | | | [address];[place] | | | | | | [address] | | | | + + + + + -+ | Albumin | 4.2Comment: Testing | 3.6 - 5.0 g/dL | EXTERNAL | | | | performed at [facility];[address] | | LAB | | | | [address];[place] | | | | | | [address] | | | | + + + + + -+ | Globulin | 3.4Comment: Testing | 1.3 - 4.9 g/dL | EXTERNAL | | | | performed at [facility];[address] | | LAB | | | | [address];[place] | | | | | | [address] | | | | + + + + + -+ | A/G Ratio | 1.2Comment: Testing | 1.0 - 2.4 | EXTERNAL | | | | performed at [facility];[address] | | LAB | | | | [address];[place] | | | | | | [address] | | | | + + + + + -+ | Bilirubin | 1.1Comment: Testing | 0.1 - 1.5 mg/dL | EXTERNAL | | | Total | performed at [facility];[address] | | LAB | | | | [address];[place] | | | | | | [address] | | | | + + + + + -+ | ALP, | 77Comment: Testing | 35 - 115 U/L | EXTERNAL | | | External | performed at [facility];[address] | | LAB | | | | [address];[place] | | | | | | [address] | | | | + + + + + -+ | AST | 35Comment: Testing | 10 - 45 U/L | EXTERNAL | | | | performed at [facility];[address] | | LAB | | | | [address];[place] | | | | | | [address] | | | | + + + + + -+ | ALT | 43Comment: Testing | 10 - 65 U/L | EXTERNAL | | | | performed at [facility];[address] | | LAB | | | | [address];[place] | | | | | | [address] | | | | + + + [...] | | | | | at [facility];[address] | | [address];[place] [address] | | | | + + + + + -+ | CK, Total | 510 (H)Comment: Testing | 55 - 400 U/L | EXTERNAL | | | | performed at [facility];[address] | | LAB | | | | [address];[place] | | | | | | [address] | | | | + + + [...] | | | | performed at [facility];[address] | | | | | | [address];[place] | | | | | | [address] | | | | + + + + + -+ | aPTT, | 24Comment: Testing | 23 - 32 seconds | EXTERNAL | | | Patient | performed at [facility];[address] | | LAB | | | | [address];[place] | | | | | | [address] | | | | + + + + + -+ | CK-MB | 9.3 (H)Comment: Testing | 0.5 - 3.6 ng/mL | EXTERNAL | | | | performed at [facility];[address] | | LAB | | | | [address];[place] | | | | | | [address] | | | | + + + [...] | | | | performed at [facility];[address] | uIU/mL | LAB | | | | [address];[place], [place] | | | | | | [address] | | | | + + + [...] | | | | performed at [facility] | | LAB | | | | [facility], [place] | | | | | | [address] | | | | + + + [...] (500), | | | | | | mapping editor TERESE NINA (2) | | | | | | on 02/27/2014 6:56:17 PM | | | | + + + + + + + + | Specimen | + + | | + + + + + | Narrative | Performed At | + + + | [facility] LAB | + [...]
--- OUTSIDE RECORDS SUMMARY | ~2020-06-03 | XMS | Encounter Summary ---
Demographics + + + | Address | [address] | | | [place] [address] | + + + | Home Phone [...] Team Providers + +------+ + | Care Drum Sander Name | Role | Phone | [...] | CARDIOLOGY [address] | Interrogation | | | | [place], | [place], | (Primary Dx); | | | | [place] [address] | [place] [address] | Pacemaker; | | | | [phone] | [phone] | Sinoatrial node | | | | [...] Sinoatrial node dysfunction (HCC)Date of Remote Interrogation: 2018 Refer to [employer] documentation and remote PDF scanned into [employer] for remote interrogation re sults. Data collected by Shabana Lama RN Presenting rhythm: Sinus rhythm, atrial paced ventricular sensed with rate 78-79 beats. 1 mode switch episodes accounting for <0.1% of the time. 0 atrial high rate episodes. 0 ventricular high rate episodes. PVC singles 1,250 PVC singles 417/month PVC runs 7 PVC runs 2/month Histogram good. Battery longevity 20 months. Apparent normal and stable device function. Device interrogation due in office in May 2019. Patient notified via voice message. documented [...] | | | | | | [place] [address] | | | | | | [phone] | | | | | | | [...] Daljit | MODESTO | | MD [facility] 05/01/2019 11:11Date of Remote Interrogation: | | | 04/11/2019 Refer to [employer] documentation and remote PDF scanned into | | | [facility] for remote interrogation results. Data collected by Shabana Robledo | | | MONROE Lama Presenting rhythm: Sinus rhythm, atrial paced ventricular | | | sensed with rate 78-79 beats.1 mode switch episodes accounting for | | | <0.1% of the time.0 atrial high rate episodes. 0 ventricular high rate | | | episodes. PVC singles 1,250 PVC singles 417/monthPVC | | | runs 7 PVC runs 2/monthHistogram good. | | | Battery longevity 20 months.Apparent normal and stable device | | | function.Device interrogation due in office in May 2019.Patient | | | notified via voice message. | | |PVC singles 1,250 PVC singles 417/month | | |PVC runs 7 PVC runs 2/month | | |Histogram good. Battery longevity 20 months. | | |Apparent normal and stable device function. | | |Device interrogation due in office in May 2019. | | |Patient notified via voice message. | | | | | | | [...]
--- OUTSIDE RECORDS SUMMARY | ~2020-06-03 | XMS | Encounter Summary ---
Demographics + + + | Address | [address] | | | [place] [address] | + + + | Home Phone [...] +------+ + | Care [employer] Teacher Name | Role | Phone | + +------+ + | Kirk French MD | PCP | | + +------+ + Reason for Visit +--------+--------+ + | Reason | Onset | Comments | | | Date | | +--------+--------+ + | Other | 05/27/ | [facility] monitor disconnected | | | 2020 | | +--------+--------+ + Encounter Details +--------+ + + + + | Date | Type | Department | Care Team | Description | +--------+ + + + + | 05/27/ | Telephone | [facility] | Daljit Singletary, | Other ([facility] | | 2020 | | CARDIOLOGY [address] | MD [address] [place] | monitor | | | | [place], | [place], | disconnected) | | | | [place] [address] | [place] [address] | | | | | [phone] | [phone] | | | | | | | [...] Telephone Encounter - Shabana Lama RN - 06/03/2020 8:44 AM PDTReceived voice message that patient has tried to contact [facility] stay connected line multiple times and has been o n hold for a long period of time. Also reports that his monitor gives the error code # 5704 - which means no cellular signal. Patient has tried to move his monitor to other location s without success. I called [employer] and explained the situation. They recommend using an ethernet adapter as long as the patient has Wii Fi. Verified with patient that he does have internet and also verified his mailing address. [employer] will ship out the new equipment and he should recei ve in 5 days. Patient notified and agreeable. Notified that he will have instructions with the new equipment but if he needs assistance to please call our office or [employer]. Electronically signed by: Shabana Lama RN 06/03/2020 8:50 AM PDT elephone Encounter - Shabana Lama RN - 05/27/2020 1:17 PM PDTPatient's monitor still not connecting. Rec eived an e-mail from [employer] that they have been unable to reach jovon fontenot to troubleshoot his monitor. Left detailed message with patient to please call the Stay c onnected line at his convenience so they can assist him with getting his monitor connected. Patient was seen in office 05/01/2020 and battery longevity was 8 months. Notified patient that if his monitor is unable to get connected soon that we may need to see him in office fo r monthly device checks to check battery longevity. Electronically signed by: Shabana Lama RN 05/27/2020 1:22 PM PDT documented in this e ncounter Plan of [...] | | | | | | [place] [address] | | | | | | [phone] | | | | | | | | +--------+ + + + + documented as of this encounter Visit Diagnoses Not on filedocumented in this encounter"
--- OUTSIDE RECORDS SUMMARY | ~2020-06-03 | XMS | Encounter Summary ---
Demographics + + + | Address | [address] | | | [place] [address] | + + + | Home Phone [...] Providers + +------+ + | Care Senior Risk Analyst Name | Role | Phone | + +------+ + | Kirk French MD | PCP | | + +------+ + Encounter Details +--------+ + + + + | Date | Type | Department | Care Team | Description | +--------+ + + + + | 12/26/ | Episode | [facility] | Kaylynn Copeland | | | 2019 | Changes | GASTROENTEROLOGY | M, RN | | | | | [address] [place] | | | | | | [address] [place], [place] | | | | | | [address] | | | | | | [phone] | | | +--------+ + + + [...] | | | | | | [place] [address] | | | | | | [phone] | | | | | | | | +--------+ + + + + documented as of this encounter Visit Diagnoses Not on filedocumented in this encounter"
--- OUTSIDE RECORDS SUMMARY | ~2020-06-03 | XMS | Encounter Summary ---
Demographics + + + | Address | [address] | | | [place] [address] | + + + | Home Phone [...] Providers + +------+ + | Care Machine Sander Name | Role | Phone | + +------+ + PCP | Unavailable | + +------+ + Encounter Details +--------+ + + + + | Date | Type | Department | Care Team | Description | +--------+ + + + + | 01/27/ | [facility] | [facility] | Jonathan, | | | 2008 | Encounter | [facility] | Martell Cr MD [address] | | | | | CENTER [address] | [address] | | | | | [place] | [place] [address] | | | | | [address] | [phone] | | | | | [phone] | | | +--------+ + + + [...] | | | | | | [place] [address] | | | | | | [phone] | | | | | | | | +--------+ + + + + documented as of this encounter Visit Diagnoses Not on filedocumented in this encounter"
--- OUTSIDE RECORDS SUMMARY | ~2020-06-03 | XMS | Encounter Summary ---
Demographics + + + | Address | [address] | | | [place] [address] | + + + | Home Phone [...] + +------+ + | Care Manager Of Procurement Name | Role | Phone | + [...] | Implant | [facility] [place] | AnshujohnsoncherelleRashadotto, | Remote Device | | 2019 | Monitor | CARDIOLOGY [address] | [address] | Interrogation | | | | [place], | [place], | (Primary Dx); | | | | [place] [address] | [place] [address] | Pacemaker; | | | | [phone] | [phone] | Sinoatrial node | | | | [...] [employer] documentation and remote PDF scanned into [employer] for remote interrogation re sults. Data collected [...] | | | | | | [place] [address] | | | | | | [phone] | | | | | | | [...] remote PDF scanned into | | | [facility] for remote interrogation results. Data [...] + + | Performing | Address | City/State/[facility] | Phone [...]
--- OUTSIDE RECORDS SUMMARY | ~2020-06-03 | XMS | Encounter Summary ---
Demographics + + + | Address | [address] | | | [place] [address] | + + + | Home Phone [...] Team Providers + +------+ + | Care Shot Man Name | Role | Phone | [...] CARDIOLOGY [address] | MD [address] [place] | Interrogation | | | | [place], | [place], | (Primary Dx); | | | | [place] [address] | [place] [address] | Pacemaker; | | | | [phone] | [phone] | Sinoatrial node | | | | [...] [employer] documentation and remote PDF scanned into [employer] for remote interrogation re sults. Data collected [...] | | | | | | [place] [address] | | | | | | [phone] | | | | | | | [...] remote PDF scanned into | | | [facility] for remote interrogation results. Data collected by [...] Address | City/State/[facility] | Phone Number | | Organization | [...]
--- OUTSIDE RECORDS SUMMARY | ~2020-06-03 | XMS | Encounter Summary ---
Demographics + + + | Address | [address] | | | [place] [address] | + + + | Home Phone [...] Providers + +------+ + | Care Business Instructor Name | Role | Phone | + +------+ + | Michael Amanda DO | PCP | | + +------+ + Encounter Details +--------+ + + + + | Date | Type | Department | Care Team | Description | +--------+ + + + + | 11/03/ | Emergency | [facility] | Eliel Calzada, | Palpitations; | | 2013 - | | [facility]ENTER | MD [address] | Atypical chest pain | | | | EMERGENCY CENTER | [place], [place] | | | 11/04/ | | [address] | [address] | | | 2013 | | [place], [place] | | | | | | [address] | | | | | | [phone] | | | +--------+ + + + [...] + + + +---------+ + + | [place] | CAPS, one capsule by [...] documented as of this encounter ED Notes Conversion Transaction, Provider Unknown - 11/04/2014 12:47 AM PSTFormatting of this note m ight be different from the original. ED Notes by Blade Rizo RN at 11/04/14 0047 Author: Blade Rizo RN Service: (none) Author Type: Registered Nurse Filed: 11/04/1447 Date of Service: 11/04/1446 Status: Signed Creative Designer: Blade Rizo RN (Registered Nurse) No changes evident in pt status, pt is resting quietly waiting for test results. Blade Rizo RN 11/04/1447 onver fatemeh Transaction, Provider Unknown - 11/03/2014 11:41 PM PST ED Notes by Blade Rizo RN at 11/03/142340 Author: Blade Rizo RN Service: (none) Author Type: Registered Nurse Filed: 11/03/142340 Date of Service: 11/03/142340 Status: Signed Creative Designer: Blade Rizo RN (Registered Nurse) Calm, resting quietly, awaiting test results. Call light in reach. Blade Rizo RN 11/03/142340 onver fatemeh Transaction, Provider Unknown - 11/03/2014 11:13 PM PST ED Notes by Blade Rizo RN at 11/03/142312 Author: Blade Rizo RN Service: (none) Author Type: Registered Nurse Filed: 11/03/142312 Date of Service: 11/03/142312 Status: Signed Creative Designer: Blade Rizo RN (Registered Nurse) Dr. Calzada at bedside. Blade Rizo RN 11/03/142312 odine Eliel grady MD - 11/03/2014 11:10 PM PST ED Provider Notes by Eliel Calzada DO at 11/03/142309 Author: Eliel Calzada DO Service: (none) Author Type: Physician Filed: 11/05/14811 Date of Service: 11/03/142309 Status: Signed Creative Designer: Eliel Calzada DO (Physician) [facility] Department of Emergency Medicine 11/03/2014 History of Present Illness Patient Identification Pina Gay is a 54 y.o. male. Patient information was obtained from patient. History/Exam limitations: none. Patient presented to the Emergency Department by: Car Chief Complaint Chief Complaint Patient presents with Chest Pain 11:10 PM. Pt presents to the ED with chest pain. The discomfort is described as "tightness" , located to the R side of the chest and has no radiation he has had this sensation multiple times over the last several weeks lasting several hours at a time. This is not new for him .. Onset of symptoms was a week ago, with an intermittent course since that time. Patient st ates today he began experiencing palpitations tonight which prompted him to come to the ED. Pt denies SOB, nausea, or vomiting. Pt's cardiac risk factors include hypertension, hyperlip idemia, and family history. 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 He states his child psychometrist is in [place]. Pt reports he last had an angiogram 6 months ago at [facility]. Pt reports he has anxiety but has never had these symptoms before. Past Medical History Diagnosis Date Hyperlipidemia Hypertension Back pain Other chronic pain PVC (premature ventricular contraction) Past Surgical History Procedure Laterality Date Spine surgery Abdominal surgery adhesions removed Appendectomy Pacemaker insertion Laser ablation x3 Cardiac catheterization Prior to Admission medications Medication Sig Start Date End Date Taking? Authorizing Provider 5-Hydroxytryptophan (5-HTP) 100 MG CAPS Take by mouth 2 (two) times daily. Historical P mia amLODIPine (NORVASC) 5 MG tablet Take 10 mg by mouth daily. 02/28/14 02/28/15 Ronald Cabrera aspirin 81 MG EC tablet Take 81 mg by mouth daily with breakfast. Historical Provider Cholecalciferol (VITAMIN D-3 PO) Take by mouth. Historical Provider CLONIDINE HCL PO Take 0.2 mg by mouth 3 (three) times daily as needed. Historical Provid er dronabinol (MARINOL) 10 MG capsule Take 10 mg by mouth 2 (two) times daily before meals. Historical Provider EMMA VELÁSQUEZ PO Take by mouth. Historical Provider LORazepam (ATIVAN) 1 MG tablet Take 1 mg by mouth daily. Historical Provider Melatonin-Pyridoxine (MELATIN PO) Take 10 mg by mouth nightly. Historical Provider Methylsulfonylmethane (MSM) 1000 MG TABS Take by mouth 2 (two) times daily. Historical Provider METOPROLOL TARTRATE PO Take 200 mg by mouth daily. Historical Provider Misc Natural Products (OSTEO BI-FLEX ADV JOINT SHIELD PO) Take by mouth 2 (two) times mei y. Historical Provider Multiple Vitamin (MULTIVITAMIN) capsule Take 1 capsule by mouth daily. Historical Provid er NATTOKINASE PO Take by mouth 2 (two) times daily. Historical Provider pantoprazole (PROTONIX) 40 MG tablet Take 1 tablet by mouth every morning before breakfast. 02/28/14 02/28/15 Neo Mcleod MD PRAVASTATIN SODIUM PO Take 40 mg by mouth daily. Historical Provider UNABLE TO FIND daily. Med Name: Cardiocore 2 po q day Historical Provider Allergies Allergen Reactions Biaxin [Clarithromycin] Rash Penicillins Palpitations Vicodin [Hydrocodone-Acetaminophen] Other (See Comments) "makes me very irritable" History Social History Marital Status: Spouse Name: N/A Number of Children: N/A Years of Education: N/A Occupational History Not on file. Social History Main Topics Smoking status: Former Smoker Smokeless tobacco: Not on file Comment: quit smoking ciggars 20 yr ago (smoked "one ciggar a year" Alcohol Use: No Comment: occ Drug Use: Yes Special: Marijuana Comment: "I eat weed" Sexual Activity: Not on file Other Topics Concern Not on file Social History Narrative Family History Problem Relation Age of Onset Heart disease Mother Heart disease Father Heart attack Father Cancer Father prostate, colon Review of Systems Constitutional: Negative for: fever or chills Cardiovascular: Positive for: chest pain and palpitations Respiratory: Negative for: cough or shortness of breath Gastrointestinal: Negative for: vomiting or abdominal pain Genitourinary: Negative for: dysuria or flank pain Musculoskeletal: Negative for: myalgias or arthralgias Skin: Negative for: rash or lesion Neuro and psych: Negative for: fainting or dizziness All other systems were reviewed and are subjectively reported as negative. Physical Exam BP 121/74 | Pulse 74 | Temp(Src) 97.7 F (36.5 C) | Resp 14 | SpO2 97% Vitals: Normal Pulse Oximetry Interpretation: Normal General: Alert, no [...] murmurs rubs or gallops Focal PMI Respiratory: No respiratory distress or wheezing Normal excursion [...] and Emergency Department Course ED Department Course 11:10 PM. This patient presents with the chief complaint of palpitations. The partial list of possible emergent diagnoses that the patient requires an evaluation for includes hyperco agulable state, anemia, dehydration, renal failure, electrolyte changes, unstable angina, ao rtic dissection, acute myocardial ischemia, arrhythmia, congestive heart failure, pericardit is, effusions, pulmonary edema and anxiety with hyperventilation. I have ordered a 12 lead EKG, CXR, CBC with diff, CMP, INR, CK, CKMB, and troponin. . 1:12 AM. Reviewed pt's CXR and lab results. Labs are unremarkable. On CXR, there is a devic e in position in the L anterior chest and there is no evidence of an acute cardiopulmonary p rocess. 1:50 AM. Reviewed records from [facility]. Records show that the patient does not h ave any cardiac disease. 1:57 AM. Pt recheck. Pt is stable at this time. I have discussed my clinical impression and treatment plan with the pt. We have specifically discussed the signs and symptoms that woul d constitute the need for an immediate return to the ED, the importance of continued outpati ent f/u and the importance of compliance with the d/c instructions. I have answered any ques tions that the pt has to the best of my ability. Based upon the pt s history, physical exa m, ED course, and diagnostic studies, I feel that there is no current emergent medical condi tion that warrants further ED treatment at this time. I have advised patient to make sure he follows up with his child psychometrist this week. Filed Vitals: 11/03/14 2305 11/03/14 2341 11/04/14 0219 BP: 121/74 100/62 164/88 Pulse: 74 76 72 Temp: 97.7 F (36.5 C) Resp: SpO2: 97% 98% 98% Records Reviewed Old medical records for a variety of chief complaints which are unrelated to the evaluation in our emd today. Previous electrocardiograms which are available on our electronic medical health record were used for direct comparison to the electrocardiogram obtained today. Nursing notes reviewed for chief complaint, medications, clinical presentation and vital si gns I obtain the records from [facility]. The angiogram was performed on 12/25/2013. Selective coronary angiography. Left main artery: The left main artery is a medium caliber vessel that bifurcates into the left anterior descending artery and left circumflex artery. The left main artery has mild e ctatic change. Left anterior descending artery: The left anterior descending artery is a medium caliber ve ssel that gives rise to two diagonal branches. The left anterior descending artery and the two diagonal branches are free of disease The left circumflex artery: The left circumflex artery is a medium caliber nondominant vess el that gives rise to three obtuse marginal branches. The left circumflex artery and branch es are free of disease. Right coronary artery: The right coronary artery is a large-caliber dominant vessel that gi ves rise to the posterior descending artery and the posterior lateral artery. There is no s ignificant disease in the RCA territory. Impression: #1. Noncritical coronary disease, mild ectatic change to the left main artery. #2. The coronary circulation is right dominant. Three. Normal left ventricular size, wall thickness and motion, preserved left ventricular systolic function. LVEF is 75%. The selective coronary angiography was performedon 12/25/13 . Laboratory Evaluation Results Procedure Component Value Ref Range Date/Time Magnesium [[id number]] Collected: 11/03/142309 Order Status: Completed Updated: 11/04/147 MAGNESIUM 2.1 1.7 - 2.4 mg/dL Phosphorus [[id number]] Collected: 11/03/142309 Order Status: Completed Updated: 11/04/147 PHOSPHORUS 3.4 2.3 - 4.8 mg/dL TSH [[id number]] Collected: 11/03/142309 Order Status: Completed Updated: 11/04/14 0008 TSH 3.20 0.45 - 5.10 uIU/mL Cardiac Panel [[id number]] (Abnormal) Collected: 11/03/142309 Order Status: Completed Updated: 11/03/14 2337 WBC 8.7 3.8 - 11.0 K/uL RBC 4.97 4.20 - 5.70 M/uL HGB 16.8 13.2 - 17.0 g/dL HCT 48.2 39.0 - 50.0 % MCV 97.1 80.0 - 100.0 fl MCH 33.9 27.0 - 34.0 pg MCHC 34.9 32.0 - 35.5 g/dL RDW SD 42.4 37 - 53 fl PLT 143 (L) 150 - 400 K/uL MPV 9.0 fl DIFF TYPE AUTOMATED NEUTROPHILS 61.6 % LYMPHOCYTES 27.8 % MONOCYTES 8.7 % EOSINOPHILS 0.8 % BASOPHILS 1.1 % NEUTROPHILS ABS 5.4 1.9 - 7.4 K/uL LYMPHOCYTES ABS 2.4 1.0 - 3.9 K/uL MONOCYTES ABS 0.8 0 - 0.8 K/uL EOSINOPHILS ABS 0.1 0 - 0.5 K/uL BASOPHILS ABS 0.1 0 - 0.1 K/uL MORPHOLOGY Result: SLIDE SCANNED, AGREES WITH AUTOMATED RESULTS. SODIUM 140 135 - 143 mmol/L POTASSIUM 3.9 3.5 - 4.9 mmol/L CHLORIDE 107 99 - 109 mmol/L CO2 28 23 - 32 mmol/L ANION GAP AGAP 9 5 - 20 mmol/L GLUCOSE 97 65 - 99 mg/dL BUN 14 8 - 25 mg/dL CREATININE 0.98 0.70 - 1.30 mg/dL BUN/CREAT 14 CALCIUM 8.8 8.5 - 10.2 mg/dL TOTAL PROTEIN 6.9 6.3 - 8.2 g/dL Albumin 3.7 3.6 - 5.0 g/dL GLOBULIN 3.2 1.3 - 4.9 g/dL A/G 1.2 1.0 - 2.4 TBIL 0.9 0.1 - 1.5 mg/dL ALK PHOS 60 35 - 115 U/L AST 22 10 - 45 U/L ALT 37 10 - 65 U/L EGFR >60 >60 mL/min/1.73m2 CPK 103 55 - 400 U/L INR 1.0 APTT 26 23 - 32 seconds MMB 2.9 0.5 - 3.6 ng/mL CK-MB Index 2.8 POC cardiac troponin [[id number]] Collected: 11/03/14 2315 Order Status: Completed Updated: 11/03/142328 POC CARDIAC TROPONIN 0.00 0.00 - 0.10 ng/mL I personally reviewed the lab results and they have been posted to the chart. Pertinent po sitive and negative findings have been addressed appropriately. Radiology and EKG Evaluation Imaging Results XR Chest PA and Lateral (Final result) Result time: 11/04/14 07:48:34 Final result by Rad Results In Kevin (11/04/14 07:48:34) Impression: 1. No acute findings. 2. Dual-lead right heart pacemaker, unchanged. Narrative: [facility] GAY XR CHEST 2 VIEW FRONTAL AND LATERAL 11/03/2014 11:56 PM History: 54 years. Male. Acute chest pain, presenting to the emergency room. Technique: PA and lateral views of the chest. Comparison: 02/27/14. Findings: The cardiac volume and contour are normal. The pulmonary vasculature is normal, without dilatation. There are dual right heart pacemaker leads, in good position, via the le ft subclavian vein. Both leads appear continuous. The pulmonary clifton and mediastinal conto urs are normal. The thoracic aorta is normal, without dilatation or calcification. No lung consolidation or pleural effusion visualized. The bronchovascular markings are norm al. There is evidence of prior cervical spine fusion surgery. No vertebral body compression fracture visualized. Bone density is normal for age. ED Interpretation Documented by Eliel Calzada DO (11/04/14 01:12:44, [facility] Emergency Department, Emergency Medicine) Chest X-ray: Left anterior chest wall device with two wires, in position similar to previous radiographs, normal heart size, normal mediastinum and great vessels, no fractures or bony lesions, Normal soft tissue. Views: PA and lateral, Good technique Preliminary Interpretation by Eliel Calzada DO 2306 Atrial paced rhythm with prolonged rhythm at 84 BPM Normal OR and NENITA Normal QRS and [place] Normal QT and QTc Normal ST/T without acute ischemic changes An EKG dated 02/28/2014 is unchanged in comparison to the EKG obtained today. Interpreted by Eliel Calzada DO. ED Diagnoses Final diagnoses Palpitations Atypical chest pain Disposition: ED Disposition Discharge Condition at discharge: Stable Follow-up Information Follow up With Details Comments Contact Bess Singletary MD Schedule an appointment as soon as possible for a visit For further e valuation [address] [facility] [address] [facility] Emergency Department If symptoms worsen [address] [facility] [address] [place] [address] [facility] [address] Michael Amanda DO Discharge Medications: Discharge Medication List as of 11/04/2014 2:14 AM Additional Documentation Procedures Attending Note: Documentation assistance provided by Lashonda De (Scribe). Information recorded by the scribe has been reviewed and validated by me. Bryn angel with its contents. DO Eliel Vivar DO 11/05/14 0812 documented in this encounter Plan of Treatment [...] | | | | | | [place], | | | | | | [place] [address] | | | | | | [phone] | | | | | | | | +--------+ + + + + documented as of this encounter Procedures + +--------+ + + + | Procedure Name | Priori | Date/Time | Associated Diagnosis | Comments | | | ty | | | | + +--------+ + + + | XR CHEST 2 VIEWS | Routin | 11/03/2014 | | Results for this | | | e | 11:56 PM | | procedure are in the | | | | PST | | results section. | + +--------+ + + + | HISTORICAL LAB PANEL | Routin | 11/03/2014 | | Results for this | | RESULT | e | 11:10 PM | | procedure are in the | | | | PST | | results section. | + +--------+ + + + | TSH | Routin | 11/03/2014 | | Results for this | | | e | 11:10 PM | | procedure are in the | | | | PST | | results section. | + +--------+ + + + | PHOSPHORUS | Routin | 11/03/2014 | | Results for this | | | e | 11:10 PM | | procedure are in the | | | | PST | | results section. | + +--------+ + + + | MAGNESIUM | Routin | 11/03/2014 | | Results for this | | | e | 11:10 PM | | procedure are in the | | | | PST | | results section. | + +--------+ + + + | ECG 12 LEAD | Routin | 11/03/2014 | | Results for this | | | e | 11:06 PM | | procedure are in the | | | | PST | | results section. | + +--------+ + + + documented in this encounter Results XR Chest 2 Vws (11/03/2014 11:56 PM PST) + + | Specimen | + + | | + + + + + | Impressions | Performed At | + + + | 1. No acute findings. 2. Dual-lead right heart pacemaker, | | | unchanged. Electronically signed by Fabrice Wilks MD on | | | 11/04/2014 7:48 AM | | + + + + + + | Narrative | Performed At | + + + | PINA GAY XR CHEST 2 VIEW FRONTAL AND LATERAL 11/03/2014 11:56 | | | PM History: 54 years. Male. Acute chest pain, presenting to | | | the emergency room. Technique: PA and lateral views of the chest. | | | Comparison: 02/27/14. Findings: The cardiac volume and contour | | | are normal. The pulmonary vasculature is normal, without | | | dilatation. There are dual right heart pacemaker leads, in good | | | position, via the left subclavian vein. Both leads appear | | | continuous. The pulmonary clifton and mediastinal contours are | | | normal. The thoracic aorta is normal, without dilatation or | | | calcification. No lung consolidation or pleural effusion | | | visualized. The bronchovascular markings are normal. There is evidence | | | of prior cervical spine fusion surgery. No vertebral body compression | | | fracture visualized. Bone density is normal for age. | | + + + + + | Procedure Note | + + | Kevin, Rad Conversion - 07/07/2019 10:30 PM PDT PINA LEVINE CHEST 2 VIEW FRONTAL | | AND [id number]/03/2014 11:56 PM History: 54 years. Male. Acute chest pain, presenting | | to the emergency room. Technique: PA and lateral views of the chest.Comparison: | | 02/27/14. Findings: The cardiac volume and contour are normal. The pulmonary | | vasculature is normal, without dilatation. There are dual right heart pacemaker leads, | | in good position, via the left subclavian vein. Both leads appear continuous. The | | pulmonary clifton and mediastinal contours are normal. The thoracic aorta is normal, | | without dilatation or calcification. No lung consolidation or pleural effusion | | visualized. The bronchovascular markings are normal. There is evidence of prior cervical | | spine fusion surgery. No vertebral body compression fracture visualized. Bone density | | is normal for age. IMPRESSION: 1. No acute findings.2. Dual-lead right heart | | pacemaker, unchanged. | | AM | |No lung consolidation or pleural effusion visualized. The bronchovascular markings are norm al. There is evidence of prior cervical spine fusion surgery. No vertebral body compression fracture visualized. Bone density is normal for age. | | | |IMPRESSION: | |1. No acute findings. | |2. Dual-lead right heart pacemaker, unchanged. | | | | | | | + + HISTORICAL LAB PANEL RESULT (11/03/2014 11:10 PM PST) + + + + + -+ | Component | Value | Ref Range | Performed | Pathologist | | | | | At | Signature | + + + + + -+ | WBC | 8.7Comment: Testing | 3.8 - 11.0 K/uL | EXTERNAL | | | | performed at [facility];[address] | | LAB | | | | [address];[place] | | | | | | [phone] | | | | + + + + + -+ | Non- | 4.97Comment: Testing | 4.20 - 5.70 | EXTERNAL | | | Red Blood | performed at [facility];[address] | M/uL | LAB | | | Cells | [address];[place] | | | | | Counted | [id number] | | | | + + + + + -+ | Hemoglobin | 16.8Comment: Testing | 13.2 - 17.0 | EXTERNAL | | | | performed at [facility];[address] | g/dL | LAB | | | | [address];[place] | | | | | | [address] | | | | + + + + + -+ | Hematocrit, | 48.2Comment: Testing | 39.0 - 50.0 % | EXTERNAL | | | POC | performed at [facility] [place];[address] | | LAB | | | | [address];[place] | | | | | | [address] | | | | + + + + + -+ | MCV | 97.1Comment: Testing | 80.0 - 100.0 fl | EXTERNAL | | | | performed at [facility] [place];[address] | | LAB | | | | [address];[place] | | | | | | [address] | | | | + + + + + -+ | MCH | 33.9Comment: Testing | 27.0 - 34.0 pg | EXTERNAL | | | | performed at [facility] [place];[address] | | LAB | | | | [address];[place] | | | | | | [address] | | | | + + + + + -+ | MCHC | 34.9Comment: Testing | 32.0 - 35.5 | EXTERNAL | | | | performed at [facility] [place];[address] | g/dL | LAB | | | | [address];[place] | | | | | | [address] | | | | + + + + + -+ | RDW-CV | 42.4Comment: Testing | 37 - 53 fl | EXTERNAL | | | | performed at [facility] [place];[address] | | LAB | | | | [address];[place] | | | | | | [address] | | | | + + + + + -+ | Platelet | 143 (L)Comment: Testing | 150 - 400 K/uL | EXTERNAL | | | Count | performed at [facility] [place] [place];[address] | | LAB | | | Plasma | [address];[place] | | | | | | [address] | | | | + + + + + -+ | MPV | 9.0Comment: Testing | fl | EXTERNAL | | | | performed at [facility];[address] | | LAB | | | | [address];[place] | | | | | | [address] | | | | + + + + + -+ | Differentia | AUTOMATEDComment: | | EXTERNAL | | | l Type | Testing performed at | | LAB | | | | [facility] [place] [place];[address];[place] [address] | | | | + + + + + -+ | % Segmented | 61.6Comment: Testing | % | EXTERNAL | | | | performed at [facility] [place] [place];[address] | | LAB | | | Neutrophils | [address];[place] | | | | | | [address] | | | | + + + + + -+ | % | 27.8Comment: Testing | % | EXTERNAL | | | Lymphocytes | performed at [facility] [place];[address] | | LAB | | | | [address];[place] | | | | | | [address] | | | | + + + + + -+ | % Monocytes | 8.7Comment: Testing | % | EXTERNAL | | | | performed at [facility] [place] [place];[address] | | LAB | | | | [address] | | | | | | [address] | | | | + + + + + -+ | % | 0.8Comment: Testing | % | EXTERNAL | | | Eosinophils | performed at [facility] [place] [place];[address] | | LAB | | | | [address];[place] | | | | | | [address] | | | | + + + + + -+ | % Basophils | 1.1Comment: Testing | % | EXTERNAL | | | | performed at [facility] [place];[address] | | LAB | | | | [address] | | | | | | [address] | | | | + + + + + -+ | Absolute | 5.4Comment: Testing | 1.9 - 7.4 K/uL | EXTERNAL | | | Segmented | performed at [facility] [place];[address] | | LAB | | | Neutrophils | [address];[place] | | | | | | [address] | | | | + + + + + -+ | Absolute | 2.4Comment: Testing | 1.0 - 3.9 K/uL | EXTERNAL | | | Lymphocytes | performed at [facility];[address] | | LAB | | | | [address];[place] | | | | | | [address] | | | | + + + + + -+ | Absolute | 0.8Comment: Testing | 0 - 0.8 K/uL | EXTERNAL | | | Monocytes | performed at [facility];[address] | | LAB | | | | [address];[place] | | | | | | [address] | | | | + + + + + -+ | Absolute | 0.1Comment: Testing | 0 - 0.5 K/uL | EXTERNAL | | | Eosinophils | performed at [facility];[address] | | LAB | | | | [address];[place] | | | | | | [address] | | | | + + + + + -+ | Absolute | 0.1Comment: Testing | 0 - 0.1 K/uL | EXTERNAL | | | Basophils | performed at [facility];[address] | | LAB | | | | [address];[place] | | | | | | [address] | | | | + + + + + -+ | RBC | SLIDE SCANNED, AGREES | | EXTERNAL | | | Morphology | WITH AUTOMATED | | LAB | | | | RESULTS.Comment: Testing | | | | | | performed at [facility];[address] | | | | | | [address];[place] | | | | | | [address] | | | | + + + + + -+ | Na | 140Comment: Testing | 135 - 143 | EXTERNAL | | | | performed at [facility] [place];888 | mmol/L | LAB | | | | [address];[place] | | | | | | [address] | | | | + + + + + -+ | K | 3.9Comment: Testing | 3.5 - 4.9 | EXTERNAL | | | | performed at [facility] [place];888 | mmol/L | LAB | | | | [address];[place] | | | | | | [address] | | | | + + + + + -+ | Cl | 107Comment: Testing | 99 - 109 mmol/L | EXTERNAL | | | | performed at [facility] [place];[address] | | LAB | | | | [address];[place] | | | | | | [address] | | | | + + + + + -+ | CO2 | 28Comment: Testing | 23 - 32 mmol/L | EXTERNAL | | | | performed at [facility] [place];[address] | | LAB | | | | [address];[place] | | | | | | [address] | | | | + + + + + -+ | Anion Gap | 9Comment: Testing | 5 - 20 mmol/L | EXTERNAL | | | | performed at [facility] [place];[address] | | LAB | | | | [address];[place] | | | | | | [address] | | | | + + + + + -+ | Glucose, | 97Comment: Testing | 65 - 99 mg/dL | EXTERNAL | | | Fasting | performed at [facility] [place];[address] | | LAB | | | | [address];[place] | | | | | | [address] | | | | + + + + + -+ | BUN | 14Comment: Testing | 8 - 25 mg/dL | EXTERNAL | | | | performed at [facility] [place];[address] | | LAB | | | | [address];[place] | | | | | | [address] | | | | + + + + + -+ | Creatinine | 0.98Comment: Testing | 0.70 - 1.30 | EXTERNAL | | | | performed at [facility] [place];888 | mg/dL | LAB | | | | [address];[place] | | | | | | [address] | | | | + + + + + -+ | BUN/Creatin | 14Comment: Testing | | EXTERNAL | | | ine Ratio | performed at [facility] [place];888 | | LAB | | | | [address];[place] | | | | | | [address] | | | | + + + + + -+ | Calcium | 8.8Comment: Testing | 8.5 - 10.2 | EXTERNAL | | | | performed at [facility] [place];888 | mg/dL | LAB | | | | [address];[place] | | | | | | [address] | | | | + + + + + -+ | Protein, | 6.9Comment: Testing | 6.3 - 8.2 g/dL | EXTERNAL | | | Total | performed at [facility] [place];888 | | LAB | | | | [address];[place] | | | | | | [address] | | | | + + + + + -+ | Albumin | 3.7Comment: Testing | 3.6 - 5.0 g/dL | EXTERNAL | | | | performed at [facility] [place];[address] | | LAB | | | | [address];[place] | | | | | | [address] | | | | + + + + + -+ | Globulin | 3.2Comment: Testing | 1.3 - 4.9 g/dL | EXTERNAL | | | | performed at [facility] [place];[address] | | LAB | | | | [address];[place] | | | | | | [address] | | | | + + + + + -+ | A/G Ratio | 1.2Comment: Testing | 1.0 - 2.4 | EXTERNAL | | | | performed at [facility] [place];[address] | | LAB | | | | [address];[place] | | | | | | [address] | | | | + + + + + -+ | Bilirubin | 0.9Comment: Testing | 0.1 - 1.5 mg/dL | EXTERNAL | | | Total | performed at [facility] [place];[address] | | LAB | | | | [address];[place] | | | | | | [address] | | | | + + + + + -+ | ALP, | 60Comment: Testing | 35 - 115 U/L | EXTERNAL | | | External | performed at [facility] [place];[address] | | LAB | | | | [address];[place] | | | | | | [address] | | | | + + + + + -+ | AST | 22Comment: Testing | 10 - 45 U/L | EXTERNAL | | | | performed at [facility] [place];[address] | | LAB | | | | [address];[place] | | | | | | [address] | | | | + + + + + -+ | ALT | 37Comment: Testing | 10 - 65 U/L | EXTERNAL | | | | performed at [facility] [place];[address] | | LAB | | | | [address];[place] | | | | | | [address] | | | | + + + [...] | | | | | | at [facility] [place];[address] | | | | | [address];[place] [address] | | | | + + + + + -+ | CK, Total | 103Comment: Testing | 55 - 400 U/L | EXTERNAL | | | | performed at [facility] [place];888 | | LAB | | | | [address];[place] | | | | | | [address] | | | | + + + [...] | | | | | performed at [facility] [place];[address] | | | | | | [address];[place] | | | | | | [address] | | | | + + + + + -+ | aPTT, | 26Comment: Testing | 23 - 32 seconds | EXTERNAL | | | Patient | performed at [facility] [place];[address] | | LAB | | | | [address];[place] | | | | | | [address] | | | | + + + + + -+ | CK-MB | 2.9Comment: Testing | 0.5 - 3.6 ng/mL | EXTERNAL | | | | performed at [facility] [place];[address] | | LAB | | | | [address];[place] | | | | | | [address] | | | | + + + + + -+ | CK-MB Index | 2.8Comment: CK INDEX | | EXTERNAL | | [...] | | + +---------+ + + TSH (11/03/2014 11:10 PM PST) + + + + + + | Component | Value | Ref Range | Performed | Pathologist | | | | | At | Signature | + + + + + + | TSH | 3.20Comment: Testing | 0.45 - 5.10 | EXTERNAL | | | | performed at [facility] [place];888 | uIU/mL | LAB | | | | [address];[place] | | | | | | [address] | | | | + + + + + + + + | Specimen | + + | | + + + +---------+ + + | Performing | Address | City/State/Zipcode | Phone Number | | Organization | | | | + +---------+ + + | EXTERNAL LAB | | | | + +---------+ + + Phosphorus (11/03/2014 11:10 PM PST) + + + + + + | Component | Value | Ref Range | Performed | Pathologist | | | | | At | Signature | + + + + + + | PHOSPHORUS | 3.4Comment: Testing | 2.3 - 4.8 mg/dL | EXTERNAL | | | | performed at [facility] [place];[address] | | LAB | | | | [address];[place], [place] | | | | | | [address] | | | | + + + + + + + + | Specimen | + + | | + + + +---------+ + + | Performing | Address | City/State/Zipcode | Phone Number | | Organization | | | | + +---------+ + + | EXTERNAL LAB | | | | + +---------+ + + Magnesium (11/03/2014 11:10 PM PST) + + + + + + | Component | Value | Ref Range | Performed | Pathologist | | | | | At | Signature | + + + + + + | Magnesium | 2.1Comment: Testing | 1.7 - 2.4 mg/dL | EXTERNAL | | | | performed at [facility] [place];888 | | LAB | | | | Lo [facility];[place], [place] | | | | | | [address] | | | | + + + + + + + + | Specimen | + + | | + + + +---------+ + + | Performing | Address | City/State/Zipcode | Phone Number | | Organization | | | | + +---------+ + + | EXTERNAL LAB | | | | + +---------+ + + ECG 12 lead (11/03/2014 11:06 PM PST) + + + + + + | Component | Value | Ref Range | Performed | Pathologist | | | | | At | Signature | + + + + + + | DIAGNOSIS: | Atrial-paced rhythm with | | EXTERNAL | | | | prolonged AV | | LAB | | | | conductionAbnormal | | | | | | ECGWhen compared with | | | | | | ECG of 28-FEB-2014 | | | | | | 05:16,No significant | | | | | | change was foundThis ECG | | | | | | contains Unconfirmed | | | | | | Interpretation | | | | | | Statements. See ED | | | | | | Record for Physician | | | | | | Interpretation. | | | | | | Confirmed by MUSE READ | | | | | | ONLY, -COMPUTER ([id number]), | | | | | | editor magazine Michelle Butcher | | | | | | (29) on 11/04/2014 | | | | | | 6:28:13 AM | | | | + + + + + + + + | Specimen | + + | | + + + + + | Narrative | Performed At | + + + | Historically converted [facility] | EXTERNAL LAB | + + + + +---------+ + + | Performing | Address | City/State/Zipcode | Phone Number | | Organization | | | | + +---------+ + + | EXTERNAL LAB | | | | + +---------+ + + documented in this encounter Visit Diagnoses + + | Diagnosis | + + | Palpitations | + + | Atypical chest pain Other chest pain | + + documented in this encounter
--- OUTSIDE RECORDS SUMMARY | ~2020-06-03 | XMS | Encounter Summary ---
Demographics + + + | Address | [address] | | | [place] [address] | + + + | Home Phone [...] Team Providers + +------+ + | Care Credit Assessment Analyst Name | Role | Phone | [...] | initial encounter; | | | [facility] | | Elevated blood | | | | [address] | | pressure reading; | | | | [phone] | | Numbness and | | | [...] + + + +---------+ + + | Rowena-3 Fatty | CAPS, one capsule by | [...] 10/29/172129 Date of Service: 10/29/171410 Status: Signed Airline Reservationist: Tor Reynolds MD (Physician) [facility] Department of Emergency Medicine 2:24 PM History [...] 1 disorder (HCC) CAD (coronary artery disease), alat[place] artery transplanted heart Cannabis abuse Chronic neck [...] Laterality Date ABDOMINAL SURGERY adhesions removed APPENDECTOMY [facility] CARDIAC CATHETERIZATION HARDWARE REMOVAL KNEE ARTHROSCOPY Bilateral LASER ABLATION x3 PACEMAKER INSERTION SHOULDER SURGERY Bilateral Rotator Cuff Repairs SPINAL FUSION 4 Cervical fusions; [place] SPINAL FUSION 2 Lumbar Fusions; [place], [place], [place] SPINE SURGERY Prior to Admission [...] History Disabled Retired from [employer] Social History Main Topics Smoking status: Former [...] No sign o f infection to suggest JET BLADE POLISHER infection or PNA or UTI as cause [...] As needed [address] [facility] [address] [facility] Emergency Department Emergency Medicine If symptoms worsen [address] [facility] [address] [facility] [place] [facility] As needed [address] [facility] [id number] Discharge Medications: Discharge Medication List as of [...] 10/29/171402 Date of Service: 10/29/171400 Status: Signed Airline Reservationist: Jessica Arellano RN (Registered Nurse) 2 patient [...] | 10/30/ | Office | Cardiology | [place], | | | 2020 | Visit | | PARISA [place] [address] | | | | | | [place], | | | | | | [place] [address] | | | | | | [phone] | | | | | | | [...]
--- OUTSIDE RECORDS SUMMARY | ~2020-06-03 | XMS | Encounter Summary ---
Demographics + + + | Address | [address] | | | [place] [address] | + + + | Home Phone [...] Team Providers + +------+ + | Care Partnership Development Manager Name | Role | Phone | + +------+ + | Michael Amanda DO | PCP | | + +------+ + Encounter Details +--------+ + + + + | Date | Type | Department | Care Team | Description | +--------+ + + + + | 12/25/ | Hospital | [facility] | Daljit Singletary, | | | 2013 | Encounter | MED CTR XRAY [address] | | | | | [place] | [place], | | | | | [place] [address] | [place] [address] | | | | | [phone] | [phone] | | | | | | | [...] + + + +---------+ + + | Franklin-3 Fatty | CAPS, one capsule by | [...] | | | | | [place], | | | | | | [place] [address] | | | | | | [phone] | | | | | | | [...] Performed At | + + + | [facility] Diagnostic Imaging | LEWIS | | Department [address] [place] [address] | [facility] | | [ rep ct street[address]] [ rep ct [facility] | | st zip] Signed | - IMAGING | | | | | Patient Name: MOE GAY | | | Physician: MIGUELINA : 1960 Age: 53 Sex: M Unit | | | #: [id number] Exam Date: 12/25/13 Location: | | | [facility] SDS-D Report #: [id number] Page: | | | %(RAD)RES..mtdd.print.filter("pg") of %(RAD) | | | RES..mtdd.print.filter("tpg") | | | | | | Accession Number: [id number] | | | LEFT HEART CATHETERIZATION, 12/25/2013 [...] the patient was taken to the cardiac medical laboratory scientist. She | | | was prepared and draped in the usual fashion. Under sterile | | | technique and local anesthesia, percutaneous access was obtained | | | using #5 Arabic sheath in the right radial artery. Right heart cath | | | was not performed on this patient. Left ventriculography was | | | performed using #5 multipurpose diagnostic catheter. The selective | | | coronary angiography was then performed in several sagittal and | | | oblique projections using #5 multipurpose and #5 Arabic JL 3.5 | | | diagnostic catheters. [...] Transcribed | | | Date/Time: 12/25/2013 11:52 Commercial Credit Lead: | | | <<Signature on File>> | | | Suwong | | | MD Gemini [facility] FAS12/25/13 1343 <Electronically signed by | | | Daljit Singletary MD, [facility], [facility], [facility], [facility]> Rashadong | | | MD Gemini [facility] FASE 12/25/13 1035 Commercial Credit Lead: Webkaryx | | | Tlrazqiogacir48/03/14 1152 | | + + + + + + + + | Performing | Address | City/State/Zipcode | Phone Number | | Organization | | | | + + + + + | [address] | [address] | [place] | [phone] | | [facility] | | [address] | | | - IMAGING | | | | + + + + + documented in this encounter Visit Diagnoses Not on filedocumented in this encounter
--- OUTSIDE RECORDS SUMMARY | ~2020-06-03 | XMS | Encounter Summary ---
Demographics + + + | Address | [address] [place] [address] [place] | | | [place] [address] | + + + | Home Phone [...] + + + | Author | [facility] | + + + | Organization | [facility] | + + + | Address | Unknown | + + + | Phone | Unavailable | + + + Support + + + + + | Name | Relationship | Address | Phone | + + + + + | Rachel Valencia | ELIEZER | [place] | | | | | [address] | | + + + + + Care Team Providers + +------+ + | Care Neon Light Installer Name | Role | Phone | + +------+ + | Darion Holden DO | PCP | | + +------+ + Encounter Details +--------+ + + + + | Date | Type | Department | Care Team | Description | +--------+ + + + + | 01/22/ | Transcribe | [facility] | Transcribe | | | 2020 | Orders | [facility] [address] | Encounter, Provider, | | | | | [address] [place] [facility] | [address] | | | | | [facility], | [place] [address] | | | | | [address] | | | | | | [place], [place] | | | | | | [address] | | | | | | [phone] | | | +--------+ + + + [...]
--- OUTSIDE RECORDS SUMMARY | ~2020-06-03 | XMS | Encounter Summary ---
Demographics + + + | Address | [address] | | | [place] [address] | + + + | Home Phone [...] Team Providers + +------+ + | Care Chemistry Faculty Member Name | Role | Phone | [...] + + | 01/01/ | Telephone | [facility] | Kirk French | Other ([facility]) | | 2020 | | [facility] | MD Bre[address] | | | | | [facility] [address] | | | | | [address] | [place] [address] | | | | | [place], [place] | [phone] | | | | | [address] | | | | | | [phone] | | | +--------+ + + + [...] Miscellaneous Notes Telephone Encounter - Geri Bear, Puffer Tender - 01/01/2020 11:09 AM PSTCalled and spoke with Kasie, states he will need to go to [facility] in [place] for this as their ma chine will allow patients to have pacemaker. Let her know we have no order for an MRI for hi m to be done, she states that she will contact patient in regards to this. Electronically si gned by Geri Bear, Puffer Tender at 01/01/2020 11:09 AM PSTTelephone Encounter - Danielle london Rosy - 01/01/2020 8:33 AM PSTJuirineo, is calling regarding Other (Pacemaker) and would like a call back. Additional Call Details: States patient's pacemaker is not MRI compatible and is requestin g a call back to discuss referring patient to a location that is. Please call her back at [phone] and ask for Kasie or Christel. If this is a symptom based call, was patient offered triage? Not Applicable If this is a symptom based call and you were unable to immediately transfer the call to a p mia residential insurance inspector was caller made aware that if [...] | | | | | | [place] [address] | | | | | | [phone] | | | | | | | | +--------+ + + + + documented as of this encounter Visit Diagnoses Not on filedocumented in this encounter"
--- OUTSIDE RECORDS SUMMARY | ~2020-06-03 | XMS | Encounter Summary ---
Demographics + + + | Address | [address] | | | [place] [address] | + + + | Home Phone [...] Providers + +------+ + | Care Grey Iron Molder Name | Role | Phone | + [...] [place] | | | | | [place] | | [address] Phone: | | | | | CYSTO/URETER | | [phone] | | | | | O | | Fax: | | | | | W/LITHOTRIPS | | [phone] | | | | | Y &INDWELL [...] | | | | | [address] | [place] | | | | | [place] | [address] | | | | | [address] | | | | | | [phone] | | | +--------+ + + + [...] +----+---+ + + | | 0 | [place]coe | | | | 8 | 43-degrees | | | | 2 | | | | | 7 | | | +----+---+ + + | | 0 | First | | | | 8 | Inc/Proc St | | | | 2 | | | | | 8 | | | +----+---+ + + | | 0 | [place] off | | | | 9 | [...] 04/13/19 121 by | | eral | [id number] catheter system; | Dominga Steen RN | [...] EVALUATION Moe Sanchez 59 y.o. male 1960 [id number] Procedure(s) Cystoscopy, Left ureteroscopy with laser lithotripsy, [...] signed by Jay Benjamin MD 04/13/2019 12:03 [facility] Jay Benjamin MD at 2018 [...] EVALUATION Moe Sanchez 59 y.o. male 1960 [id number] Procedure(s): Cystoscopy, Left ureteroscopy with laser lithotripsy, [...] hypertension, (+) cor onary artery disease of kaw artery. . Pulmonary (+) sleep apnea. (+) [...] | | | | | | [place] [address] | | | | | | [phone] | | | | | | | [...] | | | | | CONTINUOUS, Starting [facility] 04/13/19 | | AM PDT | | | | | at 0700, TKO., Pre-op | | | | | | + +---------+ +---+---+---+ +---+---+ | | | +---+---+ + +-------+ +------+---+---+ | midazolam (VERSED) 1 mg/mL | Given | 04/13/20 | 2 mg | | | | injection Intravenous, PRN, | | 19 8:24 | | | | | Starting [facility] 04/13/19 at 0808, | | AM PDT [...]
--- OUTSIDE RECORDS SUMMARY | ~2020-06-03 | XMS | Encounter Summary ---
Demographics + + + | Address | [address] | | | [place] [address] | + + + | Home Phone [...] Team Providers + +------+ + | Care Roll Picker Name | Role | Phone | + +------+ + | Michael Amanda DO | PCP | | + +------+ + Reason for Visit + +--------+ + | Reason | Onset | Comments | | | Date | | + +--------+ + | Referral | 10/26/ | | | | 2013 | | [...] [address] | | | | | [place], | [place], | | | | | [place] [address] | [place] [address] | | | | | [phone] | [phone] | | | | | | | [...] this encounter Miscellaneous Notes Telephone Encounter - Gunner, Briseida Cr - 10/26/2014 9:13 AM PSTFAXED REFERRAL TO JUDITH LINCOLN MD AT FAX NUMBER [phone]: REFERRAL DEMOGRAPHICS CHART NOTES 10-23-14, 06-25-14 LABS [id number] signed by Briseida Shaye Martino at 10/26/2014 9:14 AM PSTdocumented in this encounter Plan of [...] | | | | | | [place] [address] | | | | | | [phone] | | | | | | | | +--------+ + + + + documented as of this encounter Visit Diagnoses Not on filedocumented in this encounter"
--- OUTSIDE RECORDS SUMMARY | ~2020-06-03 | XMS | Encounter Summary ---
Demographics + + + | Address | [address] [place] [address] [address] | | | [place] [address] | + + + | Home Phone [...] + + | Author | [facility] | + + + | Organization | [facility] | + + + | Address | Unknown | + + + | Phone | Unavailable | + + + Support + + + + + | Name | Relationship | Address | Phone | + + + + + | Rachel Valencia | ELIEZER | [place] | | | | | [address] | | + + + + + Care Team Providers + +------+ + | Care Supervisor Pullet [place] Name | Role | Phone | + [...] | | | | | Unintentiona | [address] | | | | | | l weight | Ave | | | | | | loss | [facility] [place] | | | | | | Abdominal | [address] | | | | | | cramping | Phone: | | | | | | Chronic | [phone] | | | | | | diarrhea | Fax: | | | | | | Rectal | [phone] | | | | | | bleeding [...] | | 2020 | | Center at [facility] [address] | MD [address] | | | | | [address] [place] | [facility] [place] | | | | | for Health and | [address] | | | | | Healing, [address] | [phone] | | | | | [facility] [place] | | | | | | [address] | | | | | | [phone] | | | +--------+ + + + [...]
--- OUTSIDE RECORDS SUMMARY | ~2020-06-03 | XMS | Encounter Summary ---
Demographics + + + | Address | [address] | | | [place] [address] | + + + | Home Phone [...] Team Providers + +------+ + | Care Slasher Machine Operator Name | Role | Phone | + +------+ + | Kirk French MD | PCP | | + +------+ + Encounter Details +--------+ + + + + | Date | Type | Department | Care Team | Description | +--------+ + + + + | 11/03/ | Imaging | [facility] | Provider, | | | 2017 | Exam | MED CTR EXTERNAL | MD [address] | | | | | IMAGING [address] | | | | | [address] [place] | [place] [address] | | | | | [place] [address] | | | | | | [phone] | | | +--------+ + + + [...] | | | | | | [place] [address] | | | | | | [phone] | | | | | | | [...] for comparison only - no result from [facility]. | | + + + + +---------+ + + | Performing | Address | City/State/Zipcode | Phone Number | | Organization | | | | + +---------+ + + | [facility] | | | | + +---------+ + + documented in this encounter Visit Diagnoses Not on filedocumented in this encounter"
--- OUTSIDE RECORDS SUMMARY | ~2020-06-03 | XMS | Encounter Summary ---
Demographics + + + | Address | [address] | | | [place] [address] | + + + | Home Phone [...] Team Providers + +------+ + | Care Teachers' Assistant Name | Role | Phone | [...] | | | EMERG[facility]Y [facility]ENTER | [place] [place] | | | | | [address] | [address] | | | | | [facility] [place] | [phone] | | | | | [address] | | | | | | [phone] | | | +--------+ + + + [...] | | | | | | [place] [address] | | | | | | [phone] | | | | | | | | +--------+ + + + + documented as of this encounter Visit Diagnoses + + | Diagnosis | + + | Chest pain, unspecified | + + documented in this encounter"
--- OUTSIDE RECORDS SUMMARY | ~2020-06-03 | XMS | Encounter Summary ---
Demographics + + + | Address | [address] | | | [place] [address] | + + + | Home Phone [...] Providers + +------+ + | Care Golf Sales Associate Name | Role | Phone | + +------+ + | Kirk French MD | PCP | | + +------+ + Encounter Details +--------+ + + + + | Date | Type | Department | Care Team | Description | +--------+ + + + + | 01/19/ | Procedure | [facility] | Daljit Singletary, | Pacemaker | | 2018 | visit | CARDIOLOGY [address] | reprogramming/check | | | | [place], | [place], | DO NOT DELETE | | | | [place] [address] | [place] [address] | (Primary Dx); | | | | [phone] | [phone] | Pacemaker - | | | | [...] at 11:35 AM PSTdocumented in this encounter Procedure Notes Daljit Singletary MD - 01/19/2018 9:00 AM PSTAssociated Order(s): DEVICE INTERROGATIONPro cedure(s): DEVICE INTERROGATIONPre-Procedure Diagnose(s): Pacemaker reprogramming/check; Pre sence of permanent cardiac pacemaker; Sinoatrial node dysfunction (HCC)Formatting of this no te might be different from the original. PATIENT NAME: Moe Sanchez : 1960: AGE: 57 y.o. Pacemaker Evaluation Report January 19, 2018 Reason for evaluation: routine Indication for pacemaker: ICD-10-CM ICD-9-CM 1. Pacemaker reprogramming/check DO NOT DELETE Z45.018 V53.31 Device Interrogation 2. Pacemaker - Medtronic - ADDR01 Adapta - Implanted 06/14/2009 Z95.0 V45.01 Device Interrog ation 3. Sinoatrial node dysfunction (HCC) with symptomatic bradycardia I49.5 427.81 Device Inter rogation Patient was seated and/or reclined and device was interrogated. Pacemaker parameters, batte ry status, percentages pacing and significant arrhythmias were reviewed. Heart rate histogra ms were assessed for adequate heart rate response and any alerts reviewed. Appropriate lead impedance testing was performed. Pacing impedances were reviewed for any significant changes . Sensing tests were performed by decreasing LRL. Adequacy of pacing thresholds were tested by increasing LRL for each lead and recorded for loss of capture. Final outputs were assesse d for adequate safety margins. Please see the scanned Paceart report and device PDF for further details. Data collected by Kailey Pruitt RN Underlying rhythm: sinus bradycardia 52 beats. 1 mode switch episodes accounting for <0.1 % of the time. No episodes. PVC singles 280 PVC singles 23/month PVC runs 3 Histogram good. Battery longevity 2.5 years. Normal and stable device function. Prefers [...] | | | | | | [place] [address] | | | | | | [phone] | | | | | | | [...] At | + + + | Daljit SALVADOR | | MD [facility] 01/19/2018 11:35 PATIENT [...] significant changes. Sensing tests were performed by decrearthur sing LRL. Adequacy of pacing | |thresholds [...]
--- OUTSIDE RECORDS SUMMARY | ~2020-06-03 | XMS | Encounter Summary ---
Demographics + + + | Address | [address] | | | [place] [address] | + + + | Home Phone [...] Team Providers + +------+ + | Care Therapist Asst Name | Role | Phone | [...] | | | | CHRISTOPH DINH | [phone] | | | | | [address] | | | | | | [phone] | | | +--------+ + + + [...] + + + +---------+ + + | Marcy-3 Fatty | CAPS, one capsule by | [...] | | | | | | | #[id number], exp 07/2016 | | | | | [...] W | | | | | | [place], | | | | | | [place] [id number] | | | | | | [phone] | | | | | | | [...]
--- OUTSIDE RECORDS SUMMARY | ~2020-06-03 | XMS | Encounter Summary ---
Demographics + + + | Address | [address] | | | [place] [address] | + + + | Home Phone [...] Providers + +------+ + | Care Senior It Assistant Name | Role | Phone | [...] | | | | CENTER [address] | [place], [place] | (Primary Dx) | | | | [place], [place] | [address] | | | | | [address] | | | | | | [phone] | | | +--------+ + + + [...] mg by mouth | | 0 | 04/1820 | | | (BENADRYL) 25 MG | [...] + + + +---------+ + + | Dakota-3 Fatty | CAPS, one capsule by | [...] encounter ED Notes Michael Montoya MD - 01/24/2017 12:29 PM PST Emergency Department Encounter NotE CHIEF COMPLAINT: Chest pain HPI Moe Sanchez is a 56 y.o. male who presents to the Emergency Department with ch est pain that began this morning. He has history of noncritical coronary artery disease. Haleigh rodarte does have history of thoracic aneurysm as well. He's not had fever or cough. He's had so me shortness of breath. Some nausea. He used nitroglycerin although it's unclear how much relief this gave him. He is not a pleuritic pain. No hemoptysis. No syncope. He has been lightheaded which happens with PVCs for him. He has a known pacemaker that had a recent in [employer] that was working. PAST MEDICAL & SURGICAL HISTORY Past Medical [...] 12/25/13 Left Stomach surgery Vasectomy Neck surgery SOCIAL HISTORY: Social History Social History Marital Status: Spouse Name: Andreia Number of Children: 2 Years of Education: 12 Occupational History disabled Disabled Social History Main Topics Smoking status: Former Smoker Types: Cigars Quit date: 11/22/2012 Smokeless tobacco: Never Used Comment: 1 cigar twice a year for 30 (when he went fishing) Alcohol Use: No Drug Use: 7.00 per week Special: Marijuana Sexual Activity: Partners: Female Comment: to Andreia Other Topics Concern Not on file Social History Narrative Exercise: Walking and chasing dogs Caffeine: None Living situation: lives at home with Andreia in own home And as reviewed in nursing notes CURRENT MEDICATIONS Previous Medications ALUMINUM & MAGNESIUM HYDROXIDE-SIMETHICONE (MAALOX REGULAR STRENGTH) 200-200-20 MG/5 ML JESUS SPENSION Take 30 mLs by mouth every 4 hours as needed for Indigestion. ASCORBIC ACID (VITAMIN C) 1000 MG TABLET Take 1,000 mg by mouth Daily. ASPIRIN 81 MG TABLET Take 81 mg by mouth Daily. CHOLECALCIFEROL (VITAMIN D-3) 1,000 UNITS CAPS CAPSULE Take by mouth. CLONIDINE (CATAPRES) 0.2 MG TABLET Take 1 tablet by mouth 3 times daily. DIPHENHYDRAMINE (BENADRYL) 25 MG CAPSULE Take 25 mg by mouth as needed. MELATONIN TABS, at bedtime as needed METHYLSULFONYLMETHANE (MSM) 1000 MG TABS Take One time daily. METOPROLOL SUCCINATE (TOPROL-XL) 200 MG ER TABLET take 1 tablet by mouth every evening [facility] NATURAL PRODUCTS (OSTEO BI-FLEX/5-LOXIN ADVANCED PO) Take by mouth. Takes 2 table ts in the morning and 2 tablets at night MULTIPLE VITAMINS-MINERALS (CENTRUM SILVER PO) Take 1 tablet by mouth Daily. NATTOKINASE 100 MG CAPS Take by mouth 2 (two) times daily. NITROSTAT 0.[address] 1 tablet under the tongue if needed for chest pain may repeat every 5 minutes UP TO 3 DOSES; IF NO RELIEF AFTER 3RD DOSE, CALL 911 OMEGA-3 FATTY ACIDS (SALMON OIL-1000 PO) CAPS, one capsule by mouth daily twice daily ONE TOUCH DELICA LANCETS [facility] Check glucose as needed for hypoglycemia PRAVASTATIN (PRAVACHOL) 40 MG TABLET take 1 tablet by mouth NIGHTLY PROMETHAZINE (PHENERGAN) 25 MG TABLET Take 25 mg by mouth every 8 hours as needed. ROPINIROLE (REQUIP) 1 MG TABLET Take 1 tablet by mouth nightly. UNABLE TO FIND Take 1 tablet by mouth Daily. MARINE-D3 UNCODED MEDICATION Diagnosis: Obstructive Sleep Apnea ICD-9: 327.23 Length of Need: 99 Months VALACYCLOVIR (VALTREX) 500 MG TABLET take 1 tablet by mouth once daily ALLERGIES Allergies Allergen Reactions Clarithromycin Palpitations Rapid heartbeat Duloxetine Other (See Comments) Blood pressure and heart increase/palpitations Prednisone Other (See Comments) Patient was "Homicide" when he took a high dose Fentanyl Itching and Rash Hydrocodone Itching and Anxiety Agitation and grumpiness Penicillins Rash Tramadol Hcl Itching REVIEW OF SYSTEMS As in history of present illness. A 10 system of review was otherwise negative. PHYSICAL EXAM VITAL SIGNS: (first vital signs):Temp: 35.8 C (96.4 F) Pulse: 79 Resp: 16 SpO2: 98 % BP : (!) 145/107 mmHg General: Alert, appears anxious, non toxic HEENT: Normocephalic, atraumatic, OP clear, PERRL, EOMI Neck: supple, full range of motion, no tracheal deviation Cardiovascular: Normal rate and rhythm, no murmurs, rubs or gallops Pulmonary: CTA bilateral, no wheeze/rhonci or resp distress Abdominal: Soft, non tender, no rebound or guarding Musculoskeletal: normal ROM, no tenderness Neurologic: Alert, no cranial nerve deficits, no focal deficits Skin: warm and dry EKG Atrial paced rhythm, 70 bpm, no acute ischemic changes LABS CBC unremarkable CMP unremarkable Troponin negative IMAGING STUIDES (X-Rays interpreted by ED Physician) X-ray chest without acute ASSESSMENT & ED COURSE: Patient here with chest pain. His EKG is reassuring as is his troponin. His symptoms are somewhat atypical in he's had atypical chest pain in the past. I do not think this is acute coronary syndrome although he does have risk factors. I do not see other alternative diagn osis, does not appear to be PE, has history of thoracic aneurysm but symptom is atypical for dissection and chest x-ray reassuring. He otherwise appears nontoxic here. I think given his overall exam and findings he can be safely discharged home with cardiology follow-up. DISPOSITION: Discharge FINAL IMPRESSION: Chest pain Michael B Montoya, MD 01/24/17 1345 Aj allred in this encounter Miscellaneous Notes ED Triage Notes - MONROE Olivo - 01/24/2017 12:17 PM PSTPt states that he has been having baljit st pain off and on since jul. But since the past 2 days he has been having more interminten t periods of chest pain and fatigue. He does have a pace maker and feels like he is very diz zy. Pt complains that his chest pressure is being 6-7/10 angeles like he was ran over by a Clerk i. Pt took [address] over from [place].Electronically signed by MONROE Olivo at 03/2017 12:20 PM PSTdocumented in this encounter Plan of [...] | | | | | | [place] [address] | | | | | | [phone] | | | | | | | [...] 12 | 7 - 18 mg/dL | [facility] | | | | | | [facility] | | | | | | MEDICAL | | | | | | CENTER - | | | | | | LABORATORY | | + + + + + + | Creatinine | 0.84 | 0.60 - 1.30 | [facility] | | | | | mg/dL | [facility] | | | | | | MEDICAL | | | | | | CENTER - | | | | | | LABORATORY | | + + + + + + | eGFR if not | >60Comment: GLOMERULAR | >=60 | [facility] | | | | FILTRATION | mL/min/1.73m2 | [facility] | | | [facility] | RATE,ESTIMATED | | MEDICAL | | | | mL/min/1.74p7Gywr than | | CENTER - | | [...] + | [facility] | [address] | [place] | [phone] | | [facility] | | [address] | | | - LABORATORY | | [...] Brown Results In - 01/24/2017 1:16 PM [facility] PORTABLE CHEST X-RAY: 01/24/2017 12:28 PM | [...] | | | | ANGELA MARADIAGA MD ([id number]) | | | | | | on [...] | | | | | | [employer] | | | | | [...] [address] | [place] | [phone] | | [facility] | | [address] | | | - LABORATORY | | [...] | | | Cells | | | . [facility] | | | | | | MEDICAL | | | | | | CENTER - | | | | | | LABORATORY | | + +---------+ + + + | Red Blood | 4.98 | 4.30 - 5.70 | [facility] | | | Cells | | M/uL | [facility] | | [...] [address] | [place] | [phone] | | [facility] | | [address] | | | - LABORATORY | | [...]
--- OUTSIDE RECORDS SUMMARY | ~2020-06-03 | XMS | Encounter Summary ---
Demographics + + + | Address | [address] | | | [place] [address] | + + + | Home Phone [...] 2015 | | CARDIOLOGY [address] | WASHER HAND [address] [place] | reprogramming/check | | | | [place], | St [place], [place] | DO NOT DELETE | | | | [place] [address] | [address] | (Primary Dx); | | | | [phone] | | Pacemaker - | | | [...] | | | | | | [place] [address] | | | | | | [phone] | | | | | | | [...] | | 2. Coronary artery disease involving [place] coronary artery of | | | [place] heart without angina pectoris I25.10 414.01 ECHO [...]
--- OUTSIDE RECORDS SUMMARY | ~2020-06-03 | XMS | Encounter Summary ---
Demographics + + + | Address | [address] | | | [place] [address] | + + + | Home Phone [...] Providers + +------+ + | Care Food Services Director Name | Role | Phone | + +------+ + | Kirk French MD | PCP | | + +------+ + Encounter Details +--------+ + + + + | Date | Type | Department | Care Team | Description | +--------+ + + + + | 11/16/ | [facility] | [facility] | Kirk French | Aneurysm (HCC) | | 2017 | Encounter | MED CTR ULTRASOUND | D, MD [address] | | | | | [address] [place] | [address] | | | | | [place], [place] | [place] [address] | | | | | [address] | [phone] | | | | | [phone] | | | | | | | [...] + + + +---------+ + + | Paul[place]-3 Fatty | CAPS, one capsule by | [...] | | | | | | [place] [address] | | | | | | [phone] | | | | | | | [...]
--- OUTSIDE RECORDS SUMMARY | ~2020-06-03 | XMS | Encounter Summary ---
Demographics + + + | Address | [address] | | | [place] [address] | + + + | Home Phone [...] Team Providers + +------+ + | Care Freight Clerk Name | Role | Phone | + +------+ + PCP | Unavailable | + +------+ + Encounter Details +--------+ + + + + | Date | Type | Department | Care Team | Description | +--------+ + + + + | 06/23/ | [facility] | [facility] | Arthur Page MD | | | 2007 - | Encounter | MED CTR MED ONC | [address] [facility] | | | | | [address] [place] | [place] | | | 06/25/ | | [place] [address] | 191202 | | | 2007 | | [phone] | | | +--------+ + + + [...] | | | | | | [place] [address] | | | | | | [phone] | | | | | | | | +--------+ + + + + documented as of this encounter Visit Diagnoses Not on filedocumented in this encounter"
--- OUTSIDE RECORDS SUMMARY | ~2020-06-03 | XMS | Encounter Summary ---
Demographics + + + | Address | [address] | | | [place] [address] | + + + | Home Phone [...] Providers + +------+ + | Care Process Operator Name | Role | Phone [...] Closed | | Radiology | Diagnoses | X[place], | [facility] | | | | | Sinoatrial | Jose, NETWORK SECURITY ENGINEER | [address] | | | | | node | [address] | [place], | | | | | dysfunction | [place] | [place] | | | | | (HCC) | [place], [place] | [address] | | | | | Coronary | [address] | Phone: | | | | | artery | Phone: | [phone] | | | | | disease | [phone] | Fax: | | | | | involving | Fax: | [phone] | | | | | [place] | [phone] | | | | | | coronary | | | | | | | artery of | | | | | | | [place] heart | | | | | | [...] | | | | | | Complete [place] | | | | | | | ECHO HEART | | | | | | | [place]OR[place] | | | | | | | MPLETE [address] | | | | | | | [place] | | | | | | | [...] | | | | Sinoatrial | Jose, NETWORK SECURITY ENGINEER | [address] | | | | | node | [address] | [place], | | | | | dysfunction | [place] | [place] | | | | | ([facility]) | [place] | [address] | | | | | Coronary | [address] | Phone: | | | | | artery | Phone: | [phone] | | | | | disease | [phone] | Fax: | | | | | involving | Fax: | [phone] | | | | | [place] | [phone] | | | | | | coronary | | | | | | | artery of | | | | | | | [place] heart | | | | | | [...] | | | | | | Complete [place] | | | | | | | ECHO HEART | | | | | | | XTHORACIC,[place] | | | | | | | MPLETE [place] | | | | | | | [place] | | | | | | | [...] + + + + | 06/16/ | [facility] | [facility] | Jose Angel, | Sinoatrial node | | 2016 | Encounter | MED CTR ECHO [address] | NETWORK SECURITY ENGINEER [address] | dysfunction (HCC) | | | | [place] | St [place] [facility] [place] | with symptomatic | | | | [place] [address] | [address] | bradycardia; | | | | [phone] | | Coronary artery | | | | | Juvenal Blake, | disease involving | | | | | Technologist | [place] coronary | | | | | | artery of [place] | | | | | | heart [...] + + + +---------+ + + | [place]-3 Fatty | CAPS, one capsule by | [...] | | | | | | [place] [address] | | | | | | [phone] | | | | | | | [...] involving | | | | | | [place] coronary | | | | | | artery of [place] | | | | | | heart [...] Report (TTE) Demographics Patient Name VICTOR HUGO NGUYEN | | MOE Room Number SARAH Patient | [facility] | | [id number] Date of Study 06/16/2016 Number | - IMAGING | | Visit Number [id number] | | | Referring Physician JOSE ARMANDO JOSE Number Date of 1960 | | | Doorperson LUIS FERNANDO RIGOBERTO RDS Age | | | 56 year(s) Interpreting | | | GURJIT TROY | | | Toe Stapler SYDNI CAGLE, | | | MD Gender | | | Male Nurse Procedure Type of Study TTE | | | procedure: ECHO Complete. Procedure dateDate: 06/16/2016Start: 10:55 | | | AM Technical Quality: Adequate visualizationStudy Location: Echo | | | LabIndications: CAD [place] CORONARY ARTERY 414.01/ I25.10 and | | [...] SYDNI CAGLE MD(Interpreting physician) on | | | 06/16/2016 [...] + | Kalpesh Brown Results In - 06/24/2016 11:44 AM PDT Transthoracic Echocardiography Report | | (TTE) Demographics Patient Name VICTOR HUGO BARRY Room Number SARAH | | Patient [id number] Date of Study 06/16/2016 Number Visit Number | | [id number] Referring Physician JOSE ARMANDO JOSE Number | | Date of 1960 Doorperson GABBIROLYGustavo RIGOBERTO DUARTE Age | | 56 year(s) Interpreting GURJIT TROY | | Toe Stapler SYDNI CAGLE, | | Gender Male NurseProcedureType of Study TTE | | procedure: ECHO Complete.Procedure dateDate: 06/16/2016Start: 10:55 AMTechnical Quality: | | Adequate visualizationStudy Location: Echo LabIndications: CAD [place] CORONARY ARTERY | | 414.01/ I25.10 and [...] | | ----- Electronically signed by SYDNI CAGLE MD(Interpreting physician) on | | 06/16/2016 12:59 [...] SYDNI CAGLE MD(Interpreting physician) on | | 06/16/2016 12:59 [...] [address] | [place] | [phone] | | [facility] | | [address] | | | - IMAGING | | [...] + + | Coronary artery disease involving [place] coronary artery of [place] heart without | | angina pectoris | + + | Ascending thoracic aortic aneurysm (HCC) Thoracic aneurysm without mention of rupture | + + documented in this encounter"
--- OUTSIDE RECORDS SUMMARY | ~2020-06-03 | XMS | Encounter Summary ---
Demographics + + + | Address | [address] [place] [address] [address] | | | [place] [address] | + + + | Home Phone [...] [place] | | | | | [address] | | + + + + + Care Team Providers + +------+ + | Care Rod Mill Operator Name | Role | Phone [...] | | | | | Unintentiona | [place], [place] | | | | | | l weight | [address] | | | | | | loss | Phone: | | | | | | Procedures | [phone] | | | | | | CONSULT TO | Fax: | | | | | | NON - IVETTE | [phone] | | | | | | PROVIDER [...] | | 2019 | | Center at [facility] [address] | MD [address] | normal, recommend | | | | [address] | [place], [place] | hyoscyamine) | | | | for Health and | [address] | | | | | [facility] 2 | [phone] | | | | | [facility] [place] | | | | | | [address] | | | | | | [phone] | | | +--------+ + + + [...]
--- OUTSIDE RECORDS SUMMARY | ~2020-06-03 | XMS | Encounter Summary ---
Demographics + + + | Address | [address] | | | [place] [address] | + + + | Home Phone [...] Team Providers + +------+ + | Care Blanking Press Operator Name | Role | Phone [...] + | 09/12/ | Telephone | [facility] | Stanley Geri, | Other (records | | 2012 | | CARDIOLOGY [address] | MOLDER MEAT [address] [place] | faxed) | | | | [place], | St [place], [place] | | | | | [place] [address] | [address] | | | | | [phone] | | | +--------+ + + + [...] | | | | | | [place] [address] | | | | | | [phone] | | | | | | | | +--------+ + + + + documented as of this encounter Visit Diagnoses Not on filedocumented in this encounter"
--- OUTSIDE RECORDS SUMMARY | ~2020-06-03 | XMS | Encounter Summary ---
Demographics + + + | Address | [address] [place] [address] [address] | | | [place] [address] | + + + | Home Phone | | + + + | Preferred Language | Unknown | + + + | Marital Status | | + + + | Sabianism Affiliation | Unknown | + + + [...] [place] | | | | | [address] | | + + + + + Care Team Providers + +------+ + | Care Propagator Laborer Name | Role | Phone | [...] | | | | [address] [place] | [place], [place] | | | | | for Health and | [address] | | | | | Healing, Building [address] | [phone] | | | | | [place], [place] | | | | | | [address] | | | | | | [phone] | | | +--------+ + + + [...]
--- OUTSIDE RECORDS SUMMARY | ~2020-06-03 | XMS | Encounter Summary ---
Demographics + + + | Address | [address] [place] [address] [address] | | | [place] [address] | + + + | Home Phone | | + + + | Preferred Language | Unknown | + + + | Marital Status | | + + + | Taoist Affiliation | Unknown | + + + [...] [place] | | | | | [address] | | + + + + + Care Team Providers + +------+ + | Care Manager Educational Name | Role | Phone | + [...] | | | | | unspecified | [address] | | | | | | type Rectal | Ave | | | | | | bleeding | [facility] [place] | | | | | | Procedures | [address] | | | | | | CONSULT TO | Phone: | | | | | | GASTROENTERO | [phone] | | | | | | LOGY | Fax: | | | | | | | [phone] | | + +--------+ + + + [...] | | | type | Ave | Center for | | | | | Procedures | [place], [place] | [facility] and | | | | | CONSULT TO | [address] | Healing, | | | | | ENDOSCOPY | Phone: | Building [address] | | | | | UNIT: SM | [phone] | [place], [place] | | | | | B[address] | Fax: | [address] | | | | | CAPSULE | [phone] | Phone: | | | | | ENDOSCOPY | | [phone] | | | | | | | Fax: | | | | | | | [phone] | + +--------+ + + + + [...] | | | ogy | Diarrhea, | Brdigette Escobar MD | [facility] [address] | | | | | unspecified | [address] | [address] | | | | | type Rectal | Ave | Center for | | | | | bleeding | [place], [place] | [facility] and | | | | | Procedures | [address] | Healing, | | | | | CONSULT TO | Phone: | Building 2 | | | | | ENDOSCOPY | [phone] | [place] | | | | | UNIT: | Fax: | [address] | | | | | COLONOSCOPY | [phone] | Phone: | | | | | | | [phone] | | | | | | | Fax: | | | | | | | [phone] | +--------+--------+ + + + + Reason [...] | | 2020 | | Center at [facility] [address] | MD [address] | | | | | [address] [place] | [place], [place] | | | | | for Health and | [address] | | | | | Healing, Building [address] | [phone] | | | | | [place], [place] | | | | | | [address] | | | | | | [phone] | | | +--------+ + + + [...]
--- OUTSIDE RECORDS SUMMARY | ~2020-06-03 | XMS | Encounter Summary ---
Demographics + + + | Address | [address] | | | [place] [address] | + + + | Home Phone [...] Providers + +------+ + | Care Health Care Analyst Name | Role | Phone | + +------+ + PCP | Unavailable | + +------+ + Encounter Details +--------+ + + + + | Date | Type | Department | Care Team | Description | +--------+ + + + + | 10/09/ | [facility] | [facility] | Jonathan, | | | 2008 | Encounter | MED CTR EMERGENCY | Martell Cr MD [address] | | | | | CENTER [address] | [address] | | | | | [place] | [place] [address] | | | | | [address] | [phone] | | | | | [phone] | | | +--------+ + + + [...] | | | | | | [place] [address] | | | | | | [phone] | | | | | | | | +--------+ + + + + documented as of this encounter Visit Diagnoses Not on filedocumented in this encounter"
--- OUTSIDE RECORDS SUMMARY | ~2020-06-03 | XMS | Encounter Summary ---
Demographics + + + | Address | [address] | | | [place] [address] | + + + | Home Phone [...] Team Providers + +------+ + | Care Translator Interpreter Name | Role | Phone | + +------+ + PCP | Unavailable | + +------+ + Encounter Details +--------+ + + + + | Date | Type | Department | Care Team | Description | +--------+ + + + + | 08/02/ | Hospital | [facility] | | | | 2001 | Encounter | MED CTR EMERGENCY | | | | | | [address] | | | | | | [place] | | | | | | [address] | | | | | | [phone] | | | +--------+ + + + [...] | | | | | | [place] [address] | | | | | | [phone] | | | | | | | | +--------+ + + + + documented as of this encounter Visit Diagnoses Not on filedocumented in this encounter"
--- OUTSIDE RECORDS SUMMARY | ~2020-06-03 | XMS | Encounter Summary ---
Demographics + + + | Address | [address] [place] [address] [address] | | | [place] [address] | + + + | Home Phone [...] + + + | Author | [facility] | + + + | Organization | [facility] | + + + | Address | Unknown | + + + | Phone | Unavailable | + + + Support + + + + + | Name | Relationship | Address | Phone | + + + + + | Rachel Valencia | ELIEZER | [place] | | | | | [address] | | + + + + + Care Team Providers + +------+ + | Care Title Checker Name | Role | Phone | [...] | | 2020 | | Center at [facility] [address] | [facility] | (capsule referral) | | | | [address] [facility] | Road [place], [place] | | | | | for Health and | [address] | | | | | [facility] 2 | | | | | | [place], [place] | | | | | | [address] | | | | | | [phone] | | | +--------+ + + + [...]
--- OUTSIDE RECORDS SUMMARY | ~2020-06-03 | XMS | Encounter Summary ---
Demographics + + + | Address | [address] [place] [address] [address] | | | [place] [address] | + + + | Home Phone [...] [place] | | | | | [address] | | + + + + + Care Team Providers + +------+ + | Care Community Program Assistant Name | Role | Phone | [...] | | 2020 | | Center at [facility] [address] | MD [address] | | | | | [address] | [place], [place] | | | | | for Health and | [address] | | | | | [facility] 2 | [phone] | | | | | [place], [place] | | | | | | [address] | | | | | | [phone] | | | +--------+ + + + [...]
--- OUTSIDE RECORDS SUMMARY | ~2020-06-03 | XMS | Encounter Summary ---
Demographics + + + | Address | [address] | | | [place] [address] | + + + | Home Phone [...] Providers + +------+ + | Care Cloth Stretcher Name | Role | Phone | + [...] type ER | [address] | [address] | | | | | [place]UP | [place] | [place], | | | | | Procedures | [place], [place] | [place] [address] | | | | | FUP - SUW & | [address] | Phone: | | | | | EVM PT, LAST | Phone: | [phone] | | | | | SEEN | [phone] | Fax: | | | | | 08-24-18 | Fax: | [phone] | | | | | | [phone] | | +--------+ + + + + [...] | | | | CENTER [address] [place] | (Primary Dx) | | | | [place], [place] | [place] [address] | | | | | [address] | [phone] | | | | | [phone] | | | +--------+ + + + [...] through Care Everywhere.Chest Pain, Unc ertain Cause (Yakut)documented in this encounter Medications at Time of [...] + + + +---------+ + + | Fleming-3 Fatty | CAPS, one capsule by | [...] might be diff erent from the original. [facility] Moe Sanchez Emergency Department Encounter Note [address] [place] [address] PCP:Kirk French MD [phone] CHIEF COMPLAINT: Chief [...] include none. The patient does have a note taker. The patient has had risk stratification recently. The patient denies stimulant drug use ever, IVDU ever, use, family history of PA at an age younger than 55. The patient denies history of blood cl ots, coagulation disorder, leg pain/swelling, recent surgery immobilization, cancer, estroge n use, Shortness of breath, cough, or hemoptysis. Language line technical service representative made available and used to collect historical [...] performed by Dr. Gambino at [facility] on 01/30/2013. Patient had spontaneous PVCs from [...] to go back in 3 days to [place] for an attempt of ablation under general [...] SERIAL# DATE IMPLANTED GENERATOR Medtronic DDD ADDR01 [id number] 06/14/09 RV LEAD Medtronic Active Bipolar CapSureFix 4076 [id number] 06/14/09 A LEAD Medtronic Active Bipolar CapSurFix 4076 [id number] 06/14/09 Depression with anxiety 12/24/2017 Priority: Medium Coronary artery disease involving [place] coronary artery of [place] heart without angina pectoris 12/21/2013 Priority: Medium [...] tissue attenuation cannot completely be ruled out. [facility] 12/25/13, shows non critical coronary artery [...] Last Updated: 12/24/2017 Lower back injury (From [facility]) 1981 1985 Hyperlipidemia, mixed Priority: [...] 07/26/[address] Angiogram chest w/constrast 05/26/14 [facility] Hypoglycemia 09/20/2012 Bipolar disorder (HCC) Mixed anxiety [...] Procedure: COLONOSCOPY; Surgeon: Emmanuel Daniel MD; Location: [facility] MEDICAL PROCEDURE UNIT EGD 12/24/2017 HARDWARE REMOVAL KNEE ARTHROSCOPY Bilateral KNEE SURGERY 2003 meniscus-right LAMINECTOMY 1991 L3-4 LUMBAR DISCECTOMY 1991 L3-4 LUMBAR FUSION 01/2011 6 spine fusions NECK SURGERY NECK SURGERY 08/10/2012 Fusion. [place] PACEMAKER PLACEMENT 06/14/09 ROTATOR CUFF REPAIR Bilateral 03/22/2013 SINUS SURGERY 1997 SPINAL FUSION STOMACH SURGERY UPPER GASTROINTESTINAL ENDOSCOPY N/A 12/24/2017 Procedure: EGD; Surgeon: Emmanuel Daniel MD; Location: [facility] MEDICAL PROCEDURE UNIT VASECTOMY CURRENT MEDICATIONS Discharge [...] by mouth Daily.Disp-90 tabl et, R-1, Normal [facility] Natural Products (OSTEO BI-FLEX/5-LOXIN ADVANCED PO) Take [...] DOSE, CALL 911Disp-100 tablet, R-3 , Normal Fleming-3 Fatty Acids (SALMON OIL-1000 PO) CAPS, one capsule by mouth daily twice daily ondansetron (ZOFRAN ODT) 4 mg disintegrating tablet Take 4 mg by mouth every 6 hours as nee ded.Historical Med ONE TOUCH DELICA LANCETS [facility] Check glucose as needed for hypoglycemiaDisp-100 each, [...] FIND Take 1 tablet by mouth Daily. MARINE-K8Isziotrxvj Med UNCODED MEDICATION Diagnosis: Obstructive Sleep Apnea ICD-9: 327.23 Length of Need: 99 MonthsDisp-1 Device, R-0, [id number] -Nasal Pillows, H8099-Zupyz Mask, A 7030- Full Face Mask, N7640-Vrdkjh Humidifier, R4991-Fjeqey Tubing, F4557-Cvnjills, D3717-Ee instrap A7039/A703 8-Filters valACYclovir (VALTREX) 1 g [...] pH, Urine 5.0 5.0 - 8.0 Specific Barney 1.011 1.001 - 1.030 Protein, Urine Negative [...] Internal Medicine Contact information: [address] [address] Daljit Singletary MD. Call today. Specialty: Cardiology Contact information: [address] [facility] [address] Discharge Medication List as of [...] Portions of this chart were created with Sensor[employer] voice recognition software. Inadvertent so und alike [...] | | | | | | [place], | | | | | | [place] [address] | | | | | | [phone] | | | | | | | [...] W?MRN: | | | | | | [id number] | | | [id number] | | | riteri | | | [...] | | | M.D. | | | Car Ferry Master | | | al | | | [...] | | | ent/60 | | | [id number] | | | [phone] | | | [...] | | | | ANGELA MARADIAGA MD ([id number]) | | | | | | on [...] | | | | | | [employer] | | | | | [...] [address] | [place] | [phone] | | [facility] | | [address] | | | - LABORATORY | | [...] | [facility] | [address] | [place] | [phone] | | [facility] | | [address] | | | - LABORATORY | | [...] - 1.030 | [facility] | | | [place], | | | [facility] [place] | | [...] ST. | [address] | [place], [place] | [phone] | | [facility] | | [address] | | | - LABORATORY | | [...] [address] | [place] | [phone] | | [facility] | | [address] | | | - LABORATORY | | [...] [address] | [place] | [phone] | | [facility] | | [address] | | | - LABORATORY | | [...] | | | | | | [employer] | | | | | [...] | [facility] | [address] | [place] | [phone] | | [facility] | | [address] | | | - LABORATORY | | [...] | mL/min/1.73m2 | [place] | | | EMIRATI | RATE,ESTIMATED | | MEDICAL | | | | mL/min/1.77t2Ojkh than | | CENTER - | | [...] [address] | [place] | [phone] | | [facility] | | [address] | | | - LABORATORY | | [...] ST. | [address] | [place] | [phone] | | [facility] | | [address] | | | - LABORATORY | | [...] | | | | ANGELA MARADIAGA MD ([id number]) | | | | | | on [...]
--- OUTSIDE RECORDS SUMMARY | ~2020-06-03 | XMS | Encounter Summary ---
Demographics + + + | Address | [address] | | | [place] [address] | + + + | Home Phone [...] Team Providers + +------+ + | Care Silica Dry Press Helper Name | Role | Phone | [...] + + | 09/01/ | Office | [facility] | [place], | Ascending thoracic | | 2015 | Visit | CARDIOLOGY [address] | [place] [address] | aortic aneurysm | | | | [place], | [place], | ([facility]) (Primary Dx); | | | | [place] [address] | [place] [address] | Coronary artery | | | | [phone] | [phone] | disease involving | | | | | | [place] coronary | | | | | | artery of [place] | | | | | | heart [...] of non-critical coronary artery d isease involving [place] coronary artery of [place] heart without angina pectoris, essential h ypertension, [...] episode of chest pain while nelly ng [facility], so he took some sublingual nitroglycerin [...] Preventative health care Coronary artery disease involving [place] coronary artery of [place] heart without angina pectoris Cannabis abuse, daily [...] by mouth every evening 90 tablet 3 [facility] Natural Products (OSTEO BI-FLEX/5-LOXIN ADVANCED PO) Take [...] 3rd dose, call 911 100 tablet 3 [place]-3 Fatty Acids (SALMON OIL-1000 PO) CAPS, one capsule by mouth daily twice daily ONE TOUCH DELICA LANCETS [facility] [...] RESULTS reviewed during visit today primarily from [facility]: LIPID Lab Results Component Value Date [...] PLTEX 129* 05/12/2016 I reviewed records from [facility] for office visit on 06/2016 whi ch [...] He is in class II of the [place] [employer] functional class. On physical examination there are no signs of fluid overload. The plan will be to lose weight, modify portion control, start exercising, limit sodium in take and we will start losartan 25 mg once a day with a close monitoring of blood pressure. 2. Non-critical Coronary artery disease involving [place] coronary artery of stillaguamish heart [facility] [...] attenuation cannot completely be ruled out. [facility] 12/25/13, shows non critical coronary artery [...] ventricular arrhythmia performed by Dr. Gambino at [facility] on 01/30/2013. Patient had spontaneous PVCs [...] this chart may have been created with [employer] voice recognition software. Occasi onal wrong-word [...] W | | | | | | [place], | | | | | | [place] [address] | | | | | | [phone] | | | | | | | [...] + + | Coronary artery disease involving [place] coronary artery of still[place] heart without | | angina pectoris | + + | Essential hypertension with goal blood pressure less than 130/80 | + + | Hyperlipidemia, mixed Mixed hyperlipidemia | + + documented in this encounter
--- OUTSIDE RECORDS SUMMARY | ~2020-06-03 | XMS | Encounter Summary ---
Demographics + + + | Address | [address] | | | [place] [address] | + + + | Home Phone [...] Team Providers + +------+ + | Care Automation And Controls Manager Name | Role | Phone | + +------+ + PCP | Unavailable | + +------+ + Encounter Details +--------+ + + + + | Date | Type | Department | Care Team | Description | +--------+ + + + + | 12/01/ | Hospital | [facility] | | | | 1997 | Encounter | MED CTR EMERGENCY | | | | | | [address] | | | | | | [place] | | | | | | [address] | | | | | | [phone] | | | +--------+ + + + [...] | | | | | | [place] [address] | | | | | | [phone] | | | | | | | | +--------+ + + + + documented as of this encounter Visit Diagnoses Not on filedocumented in this encounter"
--- OUTSIDE RECORDS SUMMARY | ~2020-06-03 | XMS | Encounter Summary ---
Demographics + + + | Address | [address] | | | [place] [address] | + + + | Home Phone [...] Team Providers + +------+ + | Care Ccnp Name | Role | Phone | + [...] | type | [address] | [address] | | | | | Procedures | [place] | [place], | | | | | FUP | [place], [place] | [place] [address] | | | | | | [address] | Phone: | | | | | | Phone: | [phone] | | | | | | [phone] | Fax: | | | | | | Fax: | [phone] | | | | | | [phone] | | +--------+ + + + + + Reason for Visit + + + | Reason | Comments | + + + | Chest Pain | | + + + Encounter Details +--------+ + + + + | Date | Type | Department | Care Team | Description | +--------+ + + + + | 06/20/ | Emergency | [facility] | Franki Pham | Chest pain, | | 2018 | | MED CTR EMERGENCY | MD Martell [address] | unspecified type | | | | CENTER [address] | [address] [place] | (Primary Dx) | | | | [place], [place] | [place] [address] | | | | | [address] | [phone] | | | | | [phone] | | | +--------+ + + + [...] cannot be sent through Care Everywhere.Angina, Stable (Puerto Rican)documented in this encounter Medications at Time of [...] + + + +---------+ + + | Flora-3 Fatty | CAPS, one capsule by | [...] than PVC'S. 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 ranki Pham MD - 06/20/2018 6 :54 PM PDT [facility] Moe Sanchez Emergency Department Encounter Note [address] [place] [address] PCP:Kirk French MD [phone] CHIEF COMPLAINT: Chief [...] PVC'S. Patie nt took 4 baby asa captain of guards. He reports that earlier today while doing [...] coronary artery disease denies ever having an NC or being stented. His symptoms lasted for approximately 30 minutes. Were sudden in onset with resolution over this time course. No as sociated trauma or other associated symptoms. Language line truck driver rubbish collector made available and used to collect historical [...] ventricular arrhythmia performed by Dr. Gambino at [facility] on 01/30/2013. Patient had spontaneous [...] to go back in 3 days to [place] for an attempt of ablation under general [...] Left Heart Cath, 02/29/2012, LVEF is 65%, [facility] Myocardial Gated Stress Test, 05/25/2009, EF 53 % during rest and 52% during stress. [place]. Persantine Sestamibi Stress Test, 06/14/2008, LVEF is 60%, [facility] 12/25/13, shows noncritical coronary artery disease, [...] SERIAL# DATE IMPLANTED GENERATOR Medtronic DDD ADDR01 [id number] 06/14/09 RV LEAD Medtronic Active Bipolar CapSureFix 4076 [id number] 06/14/09 A LEAD Medtronic Active Bipolar CapSurFix 4076 [id number] 06/14/09 Depression with anxiety 12/24/2017 Priority: Medium Coronary artery disease involving [place] coronary artery of mi[place] heart without angina pectoris 12/21/2013 Priority: Medium [...] tissue attenuation cannot completely be ruled out. [facility] 12/25/13, shows non critical coronary artery [...] Last Updated: 12/24/2017 Lower back injury (From [facility]) 1981 1985 Hyperlipidemia, mixed Priority: Low Diarrhea [...] 07/26/[address] Angiogram chest w/constrast 05/26/14 [facility] Hypoglycemia 09/20/2012 Bipolar disorder (HCC) Mixed [...] Procedure: COLONOSCOPY; Surgeon: Emmanuel Daniel MD; Location: [facility] MEDICAL PROCEDURE UNIT HARDWARE REMOVAL KNEE SURGERY 2003 meniscus-right LAMINECTOMY 1991 L3-4 LUMBAR DISCECTOMY 1991 L3-4 LUMBAR FUSION 01/2011 6 spine fusions neck fusion 08/10/2012 [place], [place] NECK SURGERY PACEMAKER PLACEMENT 06/14/09 SHOULDER SURGERY 03/22/13 SINUS SURGERY 1997 SPINAL FUSION STOMACH SURGERY UPPER GASTROINTESTINAL ENDOSCOPY N/A 12/24/2017 Procedure: EGD; Surgeon: Emmanuel Daniel MD; Location: [facility] MEDICAL PROCEDURE UNIT VASECTOMY CURRENT MEDICATIONS [...] patient that appointment is due in Cardiology [facility] [place] [place] Natural Products (OSTEO BI-FLEX/5-LOXIN ADVANCED PO) Take [...] DOSE, CALL 911Disp-100 tablet, R-3 , Normal Flora-3 Fatty Acids (SALMON OIL-1000 PO) CAPS, one [...] or Severe Contraindications. Consult references such as Lua for further information. rOPINIrole (REQUIP) 1 mg tablet Take 1 tablet by mouth nightly.R-0, Historical Med UNABLE TO FIND Take 1 tablet by mouth Daily. MARINE-G9Buepirlcex Med UNCODED MEDICATION Diagnosis: Obstructive Sleep Apnea ICD-9: 327.23 Length of Need: 99 MonthsDisp-1 Device, R-0, [id number] -Nasal Pillows, P8642-Xriyg Mask, A 7030- Full Face Mask, D6673-Zybxqx Humidifier, M0838-Svxcvz Tubing, D9861-Rfzryqim, E3796-Rt instrap A7039/A703 8-Filters valACYclovir (VALTREX) 1 g [...] were reviewed along with EMS notes and [facility] record s if applicable. (See chart for [...] hospital for cardiac workup in this setting, [facility] The patient is AAOx4, clinically sober, [...] Internal Medicine Contact information: [address] [address] Daljit Singletary MD. Call today. Specialty: Cardiology Contact information: [address] [facility] [address] Discharge Medication List as of 06/20/2018 21:55 Portions of this chart were created with [employer] voice recognition software. Inadvertent so und alike [...] W | | | | | | [place], | | | | | | [place] [address] | | | | | | [phone] | | | | | | | [...] W?MRN: | | | | | | [id number] | | | [id number] | | | his | | | [...] | | | ent/60 | | | [id number] | | | -5586- | | | [...] | | | St. | | | [place] | | | y | | | [...] | | | ext. | | | [address] | | | or go | | [...] | | | M.D. | | | Hospice Clinical Supervisor | | | al | | | [...] | | | | ANGELA MARADIAGA MD ([id number]) | | | | | | on [...] | | | | | | [employer] | | | | | [...] [address] | [place] | [phone] | | [facility] | | [address] | | | - LABORATORY | | [...] [address] | [place] | [phone] | | [facility] | | [address] | | | - LABORATORY | | [...] | | | | | | [employer] | | | | | [...] [address] | [place] | [phone] | | [facility] | | [address] | | | - LABORATORY | | [...] mL/min/1.73m2 | [facility] | | | [facility] | RATE,ESTIMATED | | MEDICAL | | | | mL/min/1.85d3Klli than | | CENTER - | | [...] [address] | [place] | [phone] | | [facility] | | [address] | | | - LABORATORY | | [...] + | [facility] | [address] | [place] | [phone] | | [facility] | | [address] | | | - LABORATORY | | [...] | | | | ANGELA MARADIAGA MD ([id number]) | | | | | | on [...]
--- OUTSIDE RECORDS SUMMARY | ~2020-06-03 | XMS | Encounter Summary ---
Demographics + + + | Address | [address] | | | [place] [address] | + + + | Home Phone [...] Providers + +------+ + | Care Aircraft Inspection Record Clerk Name | Role | Phone | + +------+ + | Kirk French MD | PCP | | + +------+ + Reason for Visit + +--------+ + | Reason | Onset | Comments | | | Date | | + +--------+ + | Appointment | 09/01/ | Reschedule | | | 2017 | | + +--------+ + Encounter Details +--------+ + + + + | Date | Type | Department | Care Team | Description | +--------+ + + + + | 09/01/ | Telephone | [facility] | [place], | Appointment | | 2016 | | CARDIOLOGY [address] | [address] [place] [address] | (Reschedule) | | | | [place], | [place], | | | | | [place] [address] | [place] [address] | | | | | [phone] | [phone] | | | | | | | [...] this encounter Miscellaneous Notes Telephone Encounter - Yajaira Park - 10/01/2017 2:30 PM PSTCalled and spoke to patient ab out rescheduling his no show appointment with Janeen. He stated he was still waiting to hear from his primary doctor about his ultrasound. He will be calling us back to reschedule at a later date, does not want to schedule a follow up at this time. elephone Encounter - Yajaira Park - 09/10/2017 10:21 AM PDTCalled and left voicemail for patient to call back to reschedule appointment with Santos ambrose. elephone Encounter - Yajaira Espitia - 09/01/2017 11:18 AM PDTCalled and spoke with patient about rescheduling his ca ncelled 08/17/17 appointment with Janeen and device check. Patient stated he would like to re schedule but would like to have an ultrasound done for his ulcer first. He will be calling h is PCP and when he knows the appointment date of his ultrasound he will call us back to resc hedule his appointment with Janeen. 11:2 2 AM PDTdocumented in this encounter Plan of [...] | | | | | | [place] [address] | | | | | | [phone] | | | | | | | | +--------+ + + + + documented as of this encounter Visit Diagnoses Not on filedocumented in this encounter"
--- OUTSIDE RECORDS SUMMARY | ~2020-06-03 | XMS | Encounter Summary ---
Demographics + + + | Address | [address] | | | [place] [address] | + + + | Home Phone [...] Team Providers + +------+ + | Care Geometry Teacher Name | Role | Phone | [...] Specialty | | Diagnoses | Manolo, | You, Harpal, | | | Services | | Chronic | Kirk Guidry, | [address] | | | Required | | pain | [address] | Delaney Crane | | | | | syndrome | [address] | [place], | | | | | | [address] | [place] [address] | | | | | | [place], [place] | Phone: | | | | | | [address] | [phone] | | | | | | Phone: | Fax: | | | | | | [phone] | [phone] | | | | | | Fax: | | | | | | | [phone] | | + + + + + + + Reason for Visit + + + | Reason | Comments | + + + | Annual Exam | | + + + Encounter Details +--------+---------+ + + + | Date | Type | Department | Care Team | Description | +--------+---------+ + + + | 01/11/ | Office | [facility] | Kirk French | Irritable bowel | | 2020 | Visit | [facility] | MD Brea [address] | syndrome, | | | | [facility]IMARY [facility] [address] | [address] | unspecified type | | | | [address] | [place] [address] | (Primary Dx); | | | | [place], [place] | [phone] | Chronic pain | | | | [address] | | syndrome; Smoker; | | | | [phone] | | Fatigue, unspecified | | | | | | type; | | | | | | Hyperlipidemia, | | | | | | mixed; Preventative | | | | | | health care; | | | | | | Coronary artery | | | | | | disease involving | | | | | | o[place] coronary | | | | | | artery of [place] | | | | | | heart [...] PLT 169 06/02/2019 No results found for: [id number] No results found for: FOLATE No results [...] Plan and Recommendations: 1. [facility] in [place] for stool studies as outlined above 2. If negative and symptoms persist, recommend capsule endoscopy (this could be completed b y local poem writer or he could return to [place] for this test) 3. Nortryptiline 25mg q HS with instruction to titrate to 50mg q HS after 2 weeks if tolera kevin Follow-Up: with local poem writer Counseling Time: I spent a total of 35 minutes with this patient, of which greater than 50% of the time was spent in counseling. Specific issues that were discussed included a review of the disease, diagnostic tools that help in our management plans for the patient's chronic diarrhea, abdominal cramping and weight loss and goals for treatment. Bridgette Rios MD Cryptologic Linguist Gastroenterology Many co and concerns: Co bleeding Co weak Co tired Co diarrhea Co cramps Co weight changes Co 14 stool in 2 hours this AM Took 8 imodium and 2 lomotil Not taking nortriptyline as prescribed by his GI Also wants a script for hemorrhoids Pending pill endoscopy and colonoscopy May be interested in [place] if no results States was down 210# now 267 Co bedridden and can't leave the house Co incontinence States many ER visits, once a week in [place], de with IVF and dilaudid Conc re ppm Conc re r shoulder tkr and need for mri Issues with Klonopin Was arrested for DUI, self dc 08/14, had difficult withdrawal ofr 2 weeks Walks daily now for stress and exercise 1-5 miles a day Plan: ASSESSMENT AND PLAN: 1. Approximately 40 minutes of time on this gentleman's case [id number], a lot of it was reviewing outside [...] atypica l. Followed by Dr. Rios at [facility]. I reviewed her notes [...] | | | | | | [place] [address] | | | | | | [phone] | | | | | | | | +--------+ + + + + + + +--------+ + + | Name | Type | Priori | Associated Diagnoses | Order Schedule | | | | ty | | | + + +--------+ + + | Ambulatory Referral | Outpatient | Routin | Chronic pain | Ordered: 01/11/2020 | | to [facility] Pain | Referral | e | [...] health care Routine general medical examination at a [facility] | | facility | + + | Coronary artery disease involving otoe-[place]ouria coronary artery of o[place]ou[place] heart without | | angina pectoris | [...]
--- OUTSIDE RECORDS SUMMARY | ~2020-06-03 | XMS | Encounter Summary ---
Demographics + + + | Address | [address] | | | [place] [address] | + + + | Home Phone [...] + +------+ + | Care Human Resources Mgr Name | Role | Phone | [...] [address] | | | | | [place], | [place], | | | | | [place] [address] | [place] [address] | | | | | [phone] | [phone] | | | | | | | [...] | | | | | | [place] [address] | | | | | | [phone] | | | | | | | | +--------+ + + + + documented as of this encounter Visit Diagnoses Not on filedocumented in this encounter"
--- OUTSIDE RECORDS SUMMARY | ~2020-06-03 | XMS | Encounter Summary ---
Demographics + + + | Address | [address] | | | [place] [address] | + + + | Home Phone [...] Providers + +------+ + | Care Market Master Name | Role | Phone | [...] | Implant | [facility] [place] | Anshushaistatesha Shaistaanshu, | Remote Device | | 2018 | Monitor | CARDIOLOGY [address] | [address] | Interrogation | | | | [place], | [place], | (Primary Dx); | | | | [place] [address] | [place] [address] | Presence of | | | | [phone] | [phone] | permanent cardiac | | | | [...] Sinoatrial node dysfunction (HCC)Date of Remote Interrogation: 11/06/19 Refer to Paceart documentation and remote PDF scanned into [employer] for remote interrogation re sults. Data collected by ABDOUL WINTER RN Presenting rhythm: atrial paced ventricular sensed with rate at 82-86 beats. 2 mode switch episodes accounting for <0.1% of the time. No episodes. 901 PVC singles 180.2 PVC singles/month 6 PVC runs 1.2 PVC runs/month Histogram good Battery longevity 15 months. Apparent normal and stable device function. Device interrogation due in office in 08/2019 Patient notified via voicemail. documented in this [...] | | | | | | [place] [address] | | | | | | [phone] | | | | | | | [...] PDF scanned into | | | [facility] for remote interrogation results. Data collected by [...]
--- OUTSIDE RECORDS SUMMARY | ~2020-06-03 | XMS | Encounter Summary ---
Demographics + + + | Address | [address] | | | [place] [address] | + + + | Home Phone [...] Providers + +------+ + | Care Oracle Software Engineer Name | Role | Phone [...] + + | 03/29/ | Telephone | [facility] | Emmanuel Daniel MD | Diarrhea (Adult) | | 2019 | | GASTROENTEROLOGY | [address], [place] | (stomach cramps and | | | | [address] [place] | [address] [place], [place] | liquid stool) | | | | [address] [place], [place] | [address] | | | | | [address] | | | | | | [phone] | | | +--------+ + + + [...] this afternoon after eating a sandwich from [employer]. He states he takes the medication that dr. Daniel has asked him too ( Bentyl, Benadryl, metamucil and imodium but nothing is helping, he might have a normal bowel movement about 2 -3 days in a row, and then the diarrhea hits. He asks what should he do. I let patient know that his referral to [facility] was authorized and they should be calling [...] | | | | | | [place] [address] | | | | | | [phone] | | | | | | | [...]
--- OUTSIDE RECORDS SUMMARY | ~2020-06-03 | XMS | Encounter Summary ---
Demographics + + + | Address | [address] | | | [place] [address] | + + + | Home Phone [...] Team Providers + +------+ + | Care Customs Examiner Name | Role | Phone | [...] + + | 11/03/ | Refill | [facility] | Kirk French | Medication Refill | | 2019 | | [facility] | MD [address] | | | | | PRIMARY [facility]ARE [address] | [address] | | | | | [address] | [place] [address] | | | | | [place], [place] | [phone] | | | | | [address] | | | | | | [phone] | | | +--------+--------+ + + + [...] Miscellaneous Notes Telephone Encounter - Geri Bear Maintenance Inspector - 11/03/2019 10:05 AM PSTRefill Shanell ctronically signed by Geri Bear Maintenance Inspector at 11/03/2019 10:05 AM PSTdocumented in this [...] | | | | | | [place] [address] | | | | | | [phone] | | | | | | | | +--------+ + + + + documented as of this encounter Visit Diagnoses Not on filedocumented in this encounter"
--- OUTSIDE RECORDS SUMMARY | ~2020-06-03 | XMS | Encounter Summary ---
Demographics + + + | Address | [address] | | | [place] [address] | + + + | Home Phone [...] Providers + +------+ + | Care Maintenance Representative Name | Role | Phone | + +------+ + PCP | Unavailable | + +------+ + Encounter Details +--------+ + + + + | Date | Type | Department | Care Team | Description | +--------+ + + + + | 01/17/ | [facility] | [facility] | Jonas Ramos, | | | 2009 | Encounter | MED CTR EMERGENCY | [address] | | | | | CENTER [address] | [facility] [place] | | | | | [place] | [place] [address] | | | | | [address] | [phone] | | | | | [phone] | | | +--------+ + + + [...] | | | | | | [place] [address] | | | | | | [phone] | | | | | | | | +--------+ + + + + documented as of this encounter Visit Diagnoses Not on filedocumented in this encounter"
--- OUTSIDE RECORDS SUMMARY | ~2020-06-03 | XMS | Encounter Summary ---
Demographics + + + | Address | [address] | | | [place] [address] | + + + | Home Phone [...] Providers + +------+ + | Care Rn Flight Name | Role | Phone | + +------+ + | Michael Amanda DO | PCP | | + +------+ + Encounter Details +--------+ + + + + | Date | Type | Department | Care Team | Description | +--------+ + + + + | 07/30/ | Abstract | [facility] [place] [facility] | Michael Amanda, | | | 2013 | | MEDICINE [place] | DO [address] | | | | | [address] | [place] | | | | | [place] | [address] | | | | | [address] | | | | | | [phone] | | | +--------+ + + + [...] | | | | | | [place] [address] | | | | | | [phone] | | | | | | | [...] + | [facility] [facility] | [address] | [place], [place] | [phone] | | [facility] | | [address] | | | - LABORATORY | | | | + + + + + | [facility] | [address] | [place] | | | [facility] | | [address] [place] [address] | | | - LABORATORY | | [...] | | | | | | | Martiniquais, | | | | | | External [...]
--- OUTSIDE RECORDS SUMMARY | ~2020-06-03 | XMS | Encounter Summary ---
Demographics + + + | Address | [address] [place] [address] [address] | | | [place] [address] | + + + | Home Phone [...] [place] | | | | | [address] | | + + + + + Care Team Providers + +------+ + | Care Plastic Mould Maker Name | Role | Phone | [...] | | [facility] | [place], [place] | | | | | [facility] | [address] | | | | | Healing, [facility] | [phone] | | | | | [place], [place] | | | | | | [address] | | | | | | [phone] | | | +--------+ + + + [...]
--- OUTSIDE RECORDS SUMMARY | ~2020-06-03 | XMS | Clinical Summary ---
Demographics + + + | Address | [address] [place] [address] | | | [place] [address] | + + + | Home Phone [...] [place] | | | | | [address] | | + + + + + Care Team Providers + +------+ + | Care Finance Controller Name | Role | Phone | + +------+ + | Darion Holden DO | PCP | | + +------+ + Source Comments IVETTE is fully live on both EpicCare Ambulatory and EpicCare InPatient.[facility] Allergies + + + + + + [...] | 05/08/ | Telephone | Gastroenterology | rBidgette Rios, | Other | | 2020 | [...] | | | | | | | [address] | | + +--------+ +--------+ + +--------+ | [employer] | AARP | xxxxxxxxxx | 11/22/19 | [phone] | [address] | Indemn | | RETIRED PEOPLE | | | 10-Pre | 9 | [id number] | ity | | | | | sent | | [place], [place] | | | | | | | | [address] | | + +--------+ +--------+ + +--------+ + +--------+ +--------+ + + | Guarantor Name | Accoun | Relation to | Date | Phone | Billing Address | | | t Type | Patient | of | | | | | | | | | | + +--------+ +--------+ + + | Moe Sanchez W | Person | Self | [birth year] | [address] | | | cristo/Per | | 1959 | [phone] | [place] | | | [place]xanne | | | 8 (Home) | [address] | + +--------+ +--------+ + + Advance Directives + + + + + | Type | Date Recorded | Patient | Explanation | | | | Configuration Management Consultant | | + + + + + | Advance | | | | | Directives and | | | | | Living Will | | | | + + + + + | Power of | | | | | Butter Printer | | | | + + + + +
--- OUTSIDE RECORDS SUMMARY | ~2020-06-03 | XMS | Encounter Summary ---
Demographics + + + | Address | [address] | | | [place] [address] | + + + | Home Phone [...] Team Providers + +------+ + | Care Toy Stuffer Name | Role | Phone | + +------+ + PCP | Unavailable | + +------+ + Encounter Details +--------+ + + + + | Date | Type | Department | Care Team | Description | +--------+ + + + + | 06/12/ | [facility] | [facility] | Hunter Antunez, | | | 2007 - | Encounter | MED CTR ICU [address] | MD [address] | | | | | [place], | [place] | | | 06/15/ | | [place] [address] | [id number] | | | 2007 | | [phone] | | | +--------+ + + + [...] | | | | | | [place] [address] | | | | | | [phone] | | | | | | | | +--------+ + + + + documented as of this encounter Visit Diagnoses Not on filedocumented in this encounter"
--- OUTSIDE RECORDS SUMMARY | ~2020-06-03 | XMS | Encounter Summary ---
Demographics + + + | Address | [address] | | | [place] [address] | + + + | Home Phone [...] Team Providers + +------+ + | Care Neck Pinner Name | Role | Phone | + [...] [address] | | | | | [place], | [place], | | | | | [place] [address] | [place] [address] | | | | | [phone] | [phone] | | | | | | | [...] willing to try the CT here at [facility] if needed but not at [facility] ...................... .....................Darlene Tirado RN on 04/09/2014 at 14:53 elephone Encounter - Kailey Pruitt RN - 04/09/2014 11:36 AM PDTSpoke to PARISA Russell, she would like patient to decrease clonidine back to ordered three times per day and increase amlodipine fr om 5 to 10 mg per day if pressure is 160 systolic and keep a blood pressure log, call in a w [facility] with the pressures and PARISA Russell may [...] systolic. This explained to patient that at [facility] wanted to do a C T [...] took a nitro a nd went into [facility] for treatment. While there he refused a CT. He states he was told by a doctor at [facility] that CTs give him unneccesary radiation, so he refused a CT from [facility]. He states that he has been adjusting his clonidine to reduce hos blood pressure. He normally takes 3 a day but is taking 4-5 a day. Advised him I would speak with PARISA Waldron and find out if she has any instructions and get back to him. He states he is celeste ling to go to [facility] but will not go back to [facility]. documented in this encounter Plan of [...] | | | | | | [place] [address] | | | | | | [phone] | | | | | | | | +--------+ + + + + documented as of this encounter Visit Diagnoses Not on filedocumented in this encounter
--- OUTSIDE RECORDS SUMMARY | ~2020-06-03 | XMS | Encounter Summary ---
Demographics + + + | Address | [address] | | | [place] [address] | + + + | Home Phone [...] Providers + +------+ + | Care Accounts Payable Bookkeeper Name | Role | Phone | + +------+ + | Michael Amanda DO | PCP | | + +------+ + Reason for Visit + +--------+ + | Reason | Onset | Comments | | | Date | | + +--------+ + | Appointment | 09/27/ | | | | 2012 | | + +--------+ + Encounter Details +--------+ + + + + | Date | Type | Department | Care Team | Description | +--------+ + + + + | 09/27/ | Telephone | [facility] | Geri Angel, | Appointment | | 2012 | | CARDIOLOGY [address] | MARINA SALES AND SERVICE SUPERVISOR [address] [place] | | | | | [place], | [place] [facility] [place] | | | | | [place] [address] | [address] | | | | | [phone] | | | +--------+ + + + [...] Notes Telephone Encounter - Julianne Rowell - 09/27/2013 9:52 AM PSTPatient was referred to Dr Qureshi per Geri's request. They have tried to contact patient on 09-18-13, 09-20-13, and 09-27-13 to schedule an appointment with patient, but have not had a response. The y will no longer try to contact this patientElectronically signed by Julianne Rowell at 04/2013 9:55 AM PSTdocumented in this encounter Plan of [...] | | | | | | [place] [address] | | | | | | [phone] | | | | | | | | +--------+ + + + + documented as of this encounter Visit Diagnoses Not on filedocumented in this encounter"
--- OUTSIDE RECORDS SUMMARY | ~2020-06-03 | XMS | Encounter Summary ---
Demographics + + + | Address | [address] | | | [place] [address] | + + + | Home Phone [...] Team Providers + +------+ + | Care Hammer Repairer Name | Role | Phone | [...] | CARDIOLOGY [address] | [address] [place] | Interrogation | | | | [place], | [place], | (Primary Dx); | | | | [place] [address] | [place] [address] | Presence of | | | | [phone] | [phone] | permanent cardiac | | | | [...] Paceart documentation and remote PDF scanned into [employer] for remote interrogation re sults. Data collected [...] | | | | | | [place] [address] | | | | | | [phone] | | | | | | | [...]
--- OUTSIDE RECORDS SUMMARY | ~2020-06-03 | XMS | Encounter Summary ---
Demographics + + + | Address | [address] | | | [place] [address] | + + + | Home Phone [...] Providers + +------+ + | Care Wool And Pelt Grader Name | Role | Phone | [...] | 10/26/ | Refill | [facility] [place] | Kirk French | Medication Refill | | 2019 | | GASTROENTEROLOGY | MD [address] | | | | | [address] [place] | [address] | | | | | [address] [place], [place] | [place] [address] | | | | | [address] | [phone] | | | | | [phone] | | | +--------+--------+ + + + [...] Miscellaneous Notes Telephone Encounter - Geri Bear Medical Assistant - 10/26/2019 1:47 PM PSTRefill Shanell ctronically signed by Geri Bear Marina Sales And Service Supervisor at 10/26/2019 1:47 PM PSTdocumented in this encounter Plan of [...] | | | | | | [place] [address] | | | | | | [phone] | | | | | | | | +--------+ + + + + documented as of this encounter Visit Diagnoses Not on filedocumented in this encounter"
--- OUTSIDE RECORDS SUMMARY | ~2020-06-03 | XMS | Encounter Summary ---
Demographics + + + | Address | [address] [place] [address] | | | [place] [address] | + + + | Home Phone [...] Providers + +------+ + | Care Chief Client Officer Name | Role | Phone | + +------+ + | Kirk French MD | PCP | | + +------+ + Reason for Visit + +--------+ + | Reason | Onset | Comments | | | Date | | + +--------+ + | Chest Pain | 11/05/ | | | | 2015 | | + +--------+ + Encounter Details +--------+ + + + + | Date | Type | Department | Care Team | Description | +--------+ + + + + | 11/05/ | Telephone | [facility] | Daljit Singletary, | Chest Pain | | 2016 | | CARDIOLOGY [address] | [address] [place] | | | | | [place], | [place], | | | | | [place] [address] | [place] [address] | | | | | [phone] | [phone] | | | | | | | [...] Telephone Encounter - Kailey Pruitt RN - 11/05/2016 8:44 AM PSTFred called advising he paulino s had chest pain for 2 days in the center of his chest, it was so bad he took 3 nitro last n ight without relief. He then took an aspirin and went to bed. He woke up 3 hours later in te rrible pain. He states he took his blood pressure and it was fine. Advised him to call 911 o r get someone to take him to the ED. He advised he was in the parking lot of [facility] an d wants to know if he can just come in to the office. Advised him if he has been having unre lieved chest pain that long he needs to go inside to the ED for help as it could be serious and he could have a heart attack before he could come to [place]. (Driving conditions th is morning are also not good to heavy snow in our region last night.) Patient agreed to go [facility] ED to be seen. Electronically signed by: Kailey Pruitt RN 11/05/2016 8:48 documented in this encounter Plan of Treatment [...] | | | | | | [place] [address] | | | | | | [phone] | | | | | | | | +--------+ + + + + documented as of this encounter Visit Diagnoses Not on filedocumented in this encounter"
--- OUTSIDE RECORDS SUMMARY | ~2020-06-03 | XMS | Clinical Summary ---
Demographics + + + | Address | [address] [place] [address] | | | [place] [address] | + + + | Home Phone [...] [place] | | | | | [address] | | + + + + + Care Team Providers + +------+ + | Care Stock Worker Name | Role | Phone | + +------+ + | Darion Holden DO | PCP | | + +------+ + Source Comments IVETTE is fully live on both EpicCare Ambulatory and EpicCare InPatient.[facility] Allergies + + + + + + [...] | | | | | | | [address] | | + +--------+ +--------+ + +--------+ | [employer] | AARP | xxxxxxxxxx | 11/22/19 | [phone] | [address] | Indemn | | RETIRED PEOPLE | | | 10-Pre | 9 | [id number] | ity | | | | | sent | | [place], [place] | | | | | | | | [address] | | + +--------+ +--------+ + +--------+ + +--------+ +--------+ + + | Guarantor Name | Accoun | Relation to | Date | Phone | Billing Address | | | t Type | Patient | of | | | | | | | | | | + +--------+ +--------+ + + | Moe Sanchez W | Person | Self | [birth year] | [address] | | | cristo/Per | | 1959 | [phone] | [place] | | | [place] | | | 8 (Home) | [address] | + +--------+ +--------+ + + Advance Directives + + + + + | Type | Date Recorded | Patient | Explanation | | | | Formwork Carpenter | | + + + + + | Advance | | | | | Directives and | | | | | Living Will | | | | + + + + + | Power of | | | | | Commercial Loan Reviewer | | | | + + + + +
--- OUTSIDE RECORDS SUMMARY | ~2020-06-03 | XMS | Encounter Summary ---
Demographics + + + | Address | [address] | | | [place] [address] | + + + | Home Phone [...] Providers + +------+ + | Care Manager Media Name | Role | Phone | + [...] | | | | [place] | [phone] | | | | | [address] | | | | | | [phone] | | | +--------+ + + + [...] + + + +---------+ + + | Rives-3 Fatty | CAPS, one capsule by | [...] | | | | | | | #[id number], exp 07/2016 | | | | | [...] | | | | | | [place], | | | | | | [place] [address] | | | | | | [phone] | | | | | | | [...]
--- OUTSIDE RECORDS SUMMARY | ~2020-06-03 | XMS | Encounter Summary ---
Demographics + + + | Address | [address] | | | [place] [address] | + + + | Home Phone [...] Providers + +------+ + | Care Rn Forensic Name | Role | Phone | + [...] Daljit Singletary, | Medication Refill | | 2012 | | CARDIOLOGY [address] | MD [address] [place] | | | | | [place], | [place], | | | | | [place] [address] | [place] [address] | | | | | [phone] | [phone] | | | | | | | [...] | | | | | | [place] [address] | | | | | | [phone] | | | | | | | | +--------+ + + + + documented as of this encounter Visit Diagnoses Not on filedocumented in this encounter"
--- OUTSIDE RECORDS SUMMARY | ~2020-06-03 | XMS | Encounter Summary ---
Demographics + + + | Address | [address] | | | [place] [address] | + + + | Home Phone [...] Providers + +------+ + | Care Manager Chemical Name | Role | Phone | + [...] [address] | | | | | [address] | [place] [address] | | | | | [phone] | [phone] | | | | | | | [...] | | | | | | [place] [address] | | | | | | [phone] | | | | | | | [...]
--- OUTSIDE RECORDS SUMMARY | ~2020-06-03 | XMS | Encounter Summary ---
Demographics + + + | Address | [address] | | | [place] [address] | + + + | Home Phone [...] Providers + +------+ + | Care Housekeeping Supervisor Hotel Name | Role | Phone | + +------+ + | Kirk French MD | PCP | | + +------+ + Encounter Details +--------+ + + + + | Date | Type | Department | Care Team | Description | +--------+ + + + + | 01/21/ | Anesthesia | [facility] | Jarett Barakat | | | 2020 | Event | MED CTR MP INTRA OP | P, [address] | | | | | [address] | [address] [place], [place] | | | | | [place], [place] | [address] | | | | | [address] | | | | | | [phone] | | | +--------+ + + + [...] EVALUATION Moe Sanchez 59 y.o. male 1960 [id number] Procedure(s): COLONOSCOPY (N/A Rectum) Review of Systems [...] Preventative health care Coronary artery disease involving [place] coronary artery of [place] heart without angina pectoris Marijuana use Ascending [...] | | | | | | [place] [address] | | | | | | [phone] | | | | | | | | +--------+ + + + + documented as of this encounter Visit Diagnoses Not on filedocumented in this encounter
--- OUTSIDE RECORDS SUMMARY | ~2020-06-03 | XMS | Encounter Summary ---
Demographics + + + | Address | [address] [place] [address] CALEB LOZANO | | | [place] [address] | + + + | Home Phone [...] [place] | | | | | [address] | | + + + + + Care Team Providers + +------+ + | Care Mechanical Systems Design Engineer Name | Role | Phone [...] Chest pain | Farooq Almaguer, | [address] | | | | | Bradycardia | DO [address] | | | | | Procedures | Yao Booth | [facility] | | | | | | [facility] | Health and | | | | | TRANSTHORACI | [facility] [place] | Healing, | | | | | C | [address] | [address] | | | | | ECHOCARDIOGR | Phone: | [place], [place] | | | | | AM, ADULT | [phone] | [address] | | | | | | Fax: | Phone: | | | | | | [phone] | [phone] | +--------+--------+ + + + + Encounter Details +--------+ + + + + | Date | Type | Department | Care Team | Description | +--------+ + + + + | 02/03/ | Hospital | Cardiac | | | | 2010 | Encounter | Non-Invasive Testing | | | | | | at [facility] [address] | | | | | | [facility] | | | | | | [facility] and Healing, | | | | | | [address] | | | | | | [place], [place] | | | | | | [address] | | | | | | [phone] | | | +--------+ + + + [...]
--- OUTSIDE RECORDS SUMMARY | ~2020-06-03 | XMS | Encounter Summary ---
Demographics + + + | Address | [address] | | | [place] [address] | + + + | Home Phone [...] Providers + +------+ + | Care Solution Sales Senior Executive Name | Role | Phone | [...] | and swelling) | | | | [place], | [place], | | | | | [place] [address] | [place] [address] | | | | | [phone] | [phone] | | | | | | | [...] | | | | | | [place] [address] | | | | | | [phone] | | | | | | | | +--------+ + + + + documented as of this encounter Visit Diagnoses Not on filedocumented in this encounter
--- OUTSIDE RECORDS SUMMARY | ~2020-06-03 | XMS | Encounter Summary ---
Demographics + + + | Address | [address] | | | [place] [address] | + + + | Home Phone [...] Team Providers + +------+ + | Care Bicycle Assembler Name | Role | Phone | + +------+ + | Kirk French MD | PCP | | + +------+ + Encounter Details +--------+ + + + + | Date | Type | Department | Care Team | Description | +--------+ + + + + | 12/23/ | Emergency | [facility] | Cristal Alexander, | Chronic neck pain; | | 2014 | | MEDICAL CENTER | DO [address] | Headache(784.0) | | | | EMERGENCY CENTER | [place] [address] | | | | | [address] | [phone] | | | | | [place], [place] | | | | | | [address] | | | | | | [phone] | | | +--------+ + + + [...] + + + +---------+ + + | [place]-3 Fatty | CAPS, one capsule by | [...] | | | | | | | #[id number], exp 07/2016 | | | | | [...] Notes by Cristal Alexander DO at 12/23/14 7214 Author: Cristal Alexander DO Service: Emergency Department Author Type: Physician Filed: 12/27/14 1135 Date of Service: 12/23/141727 Status: Signed Reimbursement Rep: Cristal Alexander DO (Physician) Procedures Additional Documentation Procedures [facility] Department of Emergency Medicine HPI History [...] the patient s symptoms is described as 7/10. The patient reports the following e xacerbating [...] patient has had neuroimaging in the past. [facility] is doing pain management. Past Medical [...] fx. Patient will need to followup with [facility] - which is doing his [...] cervical fusion extending from C5-T1. Narrative: PINA GAY [address] [...] Follow up With Details Comments Contact Info [facility] this week [address] [facility] [address] [facility] [address] Kirk French MD Discharge Medications: Discharge Medication List as of 12/23/2014 7:31 PM START taking these medications Details methocarbamol (ROBAXIN) 750 MG tablet Take 2 tablets by mouth every 6 (six) hours as needed (pain)., Starting 12/23/2014, Until 01/02/15, Print Cristal Alexander DO 12/27/14 1116 onversion Transacti on, Provider Unknown - 12/23/2014 5:22 PM PSTFormatting of this note might be different fro m the original. ED Notes by Bandar Stephenson RN at 12/23/141721 Author: Bandar Stephenson RN Service: (none) Author Type: Registered Nurse Filed: 12/23/141724 Date of Service: 12/23/141721 Status: Signed Reimbursement Rep: Bandar Stephenson RN (Registered Nurse) Pt states [...] | | | | | | [place] [address] | | | | | | [phone] | | | | | | | [...] 07/07/2019 5:05 AM PDT PINA Hermosillo VICTOR HUGO783142 years MaleCT | | CERVICAL SPINE WO [...] Headache | + + documented in this encounter
--- OUTSIDE RECORDS SUMMARY | ~2020-06-03 | XMS | Encounter Summary ---
Demographics + + + | Address | [address] [place] [address] CALEB LOZANO | | | [place] [address] | + + + | Home Phone [...] [place] | | | | | [address] | | + + + + + Care Team Providers + +------+ + | Care Traction Power Engineer Name | Role | Phone | [...] | | 2019 | | Center at [facility] [address] | MD [address] | diarrhea; sent to | | | | [address] | [place], [place] | ED) | | | | for Health and | [address] | | | | | [facility] | [phone] | | | | | [place], [place] | | | | | | [address] | | | | | | [phone] | | | +--------+ + + + [...]
--- OUTSIDE RECORDS SUMMARY | ~2020-06-03 | XMS | Encounter Summary ---
Demographics + + + | Address | [address] | | | [place] [address] | + + + | Home Phone [...] Providers + +------+ + | Care Safety Intern Name | Role | Phone | [...] + + | 07/01/ | Hospital | [facility] | Scotty Galdamez, | DDD (degenerative | | 2018 | Encounter | MED CTR XRAY [address] | DEVELOPMENT TRAINER [address] | disc disease), | | | | [place] | [address] | lumbar; Chronic | | | | [place] [address] | [place] [address] | left-sided low back | | | | [phone] | [phone] | pain with left-sided | | | [...] + + + +---------+ + + | [place]-3 Fatty | CAPS, one capsule by | [...] | | | | | | [place] [address] | | | | | | [phone] | | | | | | | [...] | | | MD Edwige Electronically signed: 07/01/2018 3:21 PM | | [...]
--- OUTSIDE RECORDS SUMMARY | ~2020-06-03 | XMS | Encounter Summary ---
Demographics + + + | Address | [address] | | | [place] [address] | + + + | Home Phone [...] Providers + +------+ + | Care Route Deliverer Name | Role | Phone | + +------+ + | Michael Amanda DO | PCP | | + +------+ + Reason for Visit +--------+--------+ + | Reason | Onset | Comments | | | Date | | +--------+--------+ + | Other | 09/12/ | RECORDS | | | 2012 | | +--------+--------+ + Encounter Details +--------+ + + + + | Date | Type | Department | Care Team | Description | +--------+ + + + + | 09/12/ | Telephone | [facility] [place] | Pawelgeronimo, Geri, | Other (RECORDS) | | 2012 | | CARDIOLOGY [address] | SAND CONDITIONER [address] | | | | | [place], | [place], [place] | | | | | [place] [address] | [address] | | | | | [phone] | | | +--------+ + + + [...] Telephone Encounter - Julianne Rowell - 09/12/2013 10:41 AM PDTRecords sent to Dr Adrian leblanc at [facility] in [place]: Demographics, Chart notes 09-05-13, Echo 12-30-12 EKG 09-05-13, 04-24-13 Labs 08-08-13 [facility] 04-03-13, 01-30-13, 02-17-13 They will contact patient for appointment.Electronically signed by Julianne Rowell at 08/23 10:43 AM PDTdocumented in this encounter Plan of [...] | | | | | | [place] [address] | | | | | | [phone] | | | | | | | | +--------+ + + + + documented as of this encounter Visit Diagnoses Not on filedocumented in this encounter"
--- OUTSIDE RECORDS SUMMARY | ~2020-06-03 | XMS | Encounter Summary ---
Demographics + + + | Address | [address] | | | [place] [address] | + + + | Home Phone [...] Team Providers + +------+ + | Care Wide Load Escort Name | Role | Phone | [...] 2018 | | GASTROENTEROLOGY | [address], [place] | | | | | [address] [place] | [address] [place], [place] | | | | | [address] [place], [place] | [address] | | | | | [address] | | | | | | [phone] | | | +--------+ + + + [...] | | | | | | [place] [address] | | | | | | [phone] | | | | | | | [...]
--- OUTSIDE RECORDS SUMMARY | ~2020-06-03 | XMS | Encounter Summary ---
Demographics + + + | Address | [address] [place] [address] CAL[address] LOZANO | | | [place] [address] | + + + | Home Phone [...] + + + | Author | [facility] | + + + | Organization | [facility] | + + + | Address | Unknown | + + + | Phone | Unavailable | + + + Support + + + + + | Name | Relationship | Address | Phone | + + + + + | Rachel Valencia | ELIEZER | [place] | | | | | [address] | | + + + + + Care Team Providers + +------+ + | Care Bilingual Teacher Aide Name | Role | Phone | [...] | | | | [address] [place] | [place], [place] | | | | | for Health and | [address] | | | | | Healing, [address] | [phone] | | | | | [place], [place] | | | | | | [address] | | | | | | [phone] | | | +--------+ + + + [...]
--- OUTSIDE RECORDS SUMMARY | ~2020-06-03 | XMS | Encounter Summary ---
Demographics + + + | Address | [address] | | | [place] [address] | + + + | Home Phone [...] Team Providers + +------+ + | Care Overseer Kosher Kitchen Name | Role | Phone | + [...] + + | 05/26/ | Emergency | [facility] | Lizbeth Green | Atypical chest pain | | 2013 | | MED CTR EMERGENCY | DO Nicole Fink | (Primary Dx); | | | | CENTER [address] | [address] [place], [place] | Anxiety | | | | [place], [place] | [address] | | | | | [address] | | | | | | [phone] | | | +--------+ + + + [...] documented in this encounter Discharge Instructions Instructions Lizbeth Green MD - 05/26/2014Home and rest Continue current [...] + + + +---------+ + + | [place]-3 Fatty | CAPS, one capsule by | [...] encounter ED Notes Lizbeth Green MD - 05/26/2014 4:37 PM PDTFormatting of this note might be diffe rent from the original. [facility] Moe Sanchez Emergency Department Encounter Note [address] [place] [address] PCP:Michael Amanda [phone] CHIEF COMPLAINT Chief Complaint Patient presents with Chest Pain HPI Moe Sanchez is a 54 y.o. male who presents with chief complaint of chest pain. The patient states that the pain has been off and on and it doesn't matter whether he is a t rest or doing activities. He thinks that he is also having some palpitations but also won ders if it is just his anxiety acting up. The patient states that he had a recent imaging s tudy that showed an ascending aortic aneurysm at 4.5 cm he has a cardiothoracic surgeon at [facility] who is going to be following him with this. Apparently if it gets bigger than 5.5 Nee ds to have an intervention rate the patient states that the chest pain is a little bit diffe rent than the normal for him he is worried about the aneurysm. The patient also has a perma nent pacemaker that has been functioning well. He underwent an ablation procedure for multi ple PVCs and did well with that. He states over the last couple of days he has taken nitro on several occasions when he had the chest pain in the chest pain resolved. He is currently chest pain-free. He is not complaining of any shortness of breath. He states that his blo od pressure has been well-controlled lately PAST MEDICAL HISTORY Past Medical History Diagnosis [...] 1991 L3-4 Lumbar discectomy 1992 L3-4 Appendectomy 2006 [...] TABLET Take 1 tablet by mouth Daily. MISC NATURAL PRODUCTS (OSTEO BI-FLEX/5-LOXIN ADVANCED PO) [...] MISC Check glucose as needed for hypoglycemia PANTOPRAZOLE [...] chasing dogCaffeine:NoneLiving situation: lives at home with Kleber craig in own home REVIEW OF SYSTEMS Review of systems is negative except as mentioned in the HPI PHYSICAL EXAM VITAL SIGNS: (first vital signs):Temp: 37.5 C (99.5 F) Pulse: 75 Resp: 16 SpO2: 97 % BP: 112/71 mmHg Physical Exam Nursing note and vitals reviewed. Constitutional: He is oriented to person, place, and time. He appears well-developed and we ll-nourished. HENT: Head: Normocephalic and atraumatic. Cardiovascular: Normal rate, regular rhythm and normal heart sounds. Pulmonary/Chest: Effort normal and breath sounds normal. Abdominal: Soft. Bowel sounds are normal. Musculoskeletal: Normal range of motion. He exhibits no edema and no tenderness. Neurological: He is alert and oriented to person, place, and time. Skin: Skin is warm and dry. Psychiatric: He has a normal mood and affect. Results for orders placed during the hospital encounter of 05/26/14 CBC WITH DIFFERENTIAL Component Value Range WBC 8.4 4.0-11.0 K/uL RBC 4.90 4.30-5.70 M/uL Hgb 16.7 13.5-18.0 g/dL Hct 47.4 40.0-51.0 % MCV 96.7 83.0-101.0 fL MCH 34.1 28.0-35.0 pg MCHC 35.2 32.0-36.0 g/dL RDW 12.3 <15.0 % Platelet Count 147 140-440 K/uL MPV 9.7 % Neutrophils 64.9 45.0-82.0 % % Lymphocytes 25.0 20.0-45.0 % % Monocytes 8.5 4.0-12.0 % % Eosinophils 0.6 0.0-5.0 % % Basophils 1.0 0.0-1.0 % Absolute Neutrophils 5.40 1.80-8.50 K/uL Absolute Lymphocytes 2.10 0.60-3.20 K/uL Absolute Monocytes 0.70 0.00-1.00 K/uL Absolute Eosinophils 0.00 0.00-0.40 K/uL Absolute Basophils 0.10 0.00-0.10 K/uL COMPREHENSIVE METABOLIC PANEL Component Value Range NA 140 136-149 mmol/L K 3.6 3.5-5.1 mmol/L CL 107 98-109 mmol/L CO2 22 (*) 24-31 mmol/L ANION GAP 11 3-16 mmol/L GLUCOSE 96 70-109 mg/dL BUN 12 7-18 mg/dL Creatinine, Serum 0.89 0.60-1.30 mg/dL eGFR if not >60 >=60 mL/min/1.73m2 CALCIUM 9.4 8.3-10.5 mg/dL ALBUMIN 3.9 3.2-5.0 g/dL BILIRUBIN TOTAL 0.8 0.1-1.5 mg/dL Total protein 6.2 6.0-7.8 g/dL AST 25 10-42 U/L ALT 28 6-45 U/L ALK PHOS 61 40-110 U/L GLOBULIN 2.3 Albumin/Globulin ratio 1.7 BUN/CREA 13.5 TROPONIN I Component Value Range TROPONIN I 0.01 <0.06 ng/mL RADIOLOGY Pt had aortogram that shows aneurysm that is unchanged and no signs of dissection. ED COURSE & MEDICAL DECISION MAKING Pertinent Labs & Imaging studies reviewed. (See chart for details) Pt seen and examined. He has no chest pain on exam and is 100% paced on the monitor. Pt h ad IV and labs that were all essentially normal. Pt went for aortogram that showed no disse ction and no enlargement of the aneurysm. Pt remained CP free and comopletely asymptomatic throughout his stay. He is very reassured by the CT results. He will continue current meds and advised that BP control is of tantamount importance. He should folllow with his PCP an d cardiology. Last Set of Vital Signs: Temp: 37.5 C (99.5 F) Pulse: 77 Resp: 22 SpO2: 97 % BP: 130/ 93 mmHg FINAL IMPRESSION 1. Atypical chest pain 2. Anxiety Follow-up Information Follow up with Michael Amanda DO. (As needed) Contact information: [address] [place] [address] Lizbeth Green MD 05/27/14 1004 documented in this encounter Miscellaneous Notes Plan of Care - ONBASE SCAN WAVT - 05/28/2014 12:00 AM PDT D Triage Notes - Severiano Benites RN - 05/26/2014 2:09 PM PD TChest pain x 1week hx of anurysm aorta states it may be getting bigger from a mylogramElect ronically signed by Severiano Benites RN at 05/26/2014 2:11 PM PDTdocumented in this encounte r Plan of Treatment [...] | | | | | | [place] [address] | | | | | | [phone] | | | | | | | [...] the uneventful IV administration of 80 mL [id number] contrast. Timing of | | contrast bolus [...] + + | Performing | Address | City/State/[facility] | Phone Number | | Organization | | | | + +---------+ + + | MISCELLANEOUS LAB | | | [phone] | + +---------+ + + | MISCELANIOUS LAB | | | [phone] | + +---------+ + + Troponin I [...] | | | | | | [employer] | | | | | [...] + | [facility] | [address] | [place] | [phone] | | [facility] | | [address] | | | - LABORATORY | | | | + + + + + | [facility] | [address] | [place], [place] | | | [facility] | | [address] [place] [address] | | | - LABORATORY | | [...] | 0.89 | 0.60 - 1.30 | PROVIDEDEE | | | | | mg/dL | [facility] | | | | | | MEDICAL | | | | | | CENTER - | | | | | | LABORATORY | | + + + + + + | eGFR if not | >60Comment: GLOMERULAR | >=60 | [facility] | | | | FILTRATION | mL/min/1.73m2 | [facility] | | | [place] | RATE,ESTIMATED | | MEDICAL | | | | mL/min/1.71k7Rswc than | | CENTER - | | [...] | 9.4 | 8.3 - 10.5 | PROVIDED[facility] | | | | | mg/dL | [facility] | | | | | | MEDICAL [...] + | [facility] | [address] | [place] | [phone] | | [facility] | | [address] | | | - LABORATORY | | | | + + + + + | [facility] | [address] | [place], [place] | | | [facility] | | [address] | | | - LABORATORY | | | | + + + + + CBC with Differential (05/26/2014 3:43 PM PDT) + +-------+ + + + | Component | Value | Ref Range | Performed | Pathologist | | | | | At | Signature | + +-------+ + + + | White Blood | 8.4 | 4.0 - 11.0 K/uL | [facility] | | | Cells | | | [facility] | | | | | | MEDICAL | | | | | | CENTER - | | | | | | LABORATORY | | + +-------+ + + + | Red Blood | 4.90 | 4.30 - 5.70 | [...] + | [facility] | [address] | [place] | [phone] | | [facility] | | [address] | | | - LABORATORY | | | | + + + + + | [facility] | [address] | [place], [place] | | | [facility] | | [address] [place] [address] | | | - LABORATORY | | [...]
--- OUTSIDE RECORDS SUMMARY | ~2020-06-03 | XMS | Encounter Summary ---
Demographics + + + | Address | [address] | | | [place] [address] | + + + | Home Phone [...] Providers + +------+ + | Care Naval Gunfire Liaison Officer Name | Role | Phone | + +------+ + | Kirk French MD | PCP | | + +------+ + Reason for Visit +--------+--------+ + | Reason | Onset | Comments | | | Date | | +--------+--------+ + | Other | 05/07/ | pacemaker/MRI/shoulder | | | 2020 | | +--------+--------+ + Encounter Details +--------+ + + + + | Date | Type | Department | Care Team | Description | +--------+ + + + + | 05/07/ | Telephone | [facility] [place] | Silvia, | Other | | 2020 | | CARDIOLOGY [address] | [place] [address] | (pacemaker/MRI/shoul | | | | [place], | [place], | good) | | | | [place] [address] | [place] [address] | | | | | [phone] | [phone] | | | | | | | [...] Telephone Encounter - Darlene Tirado RN - 05/09/2020 1:46 PM PDTSpoke with Amilcar, he rep orts that [facility] not want [facility]. He is reassured that leads are MRI frien dly and all new pacemakers are MRI friendly. He reports he will wait until he gets his devic e changed out to deal with the MRI ...........................................Darlene maddox RN, on 05/09/20 at 1:48 PM PDT elephone Encounter - Mariana Valentine RN - 05/09/2020 8:22 AM PDTLeft message on voicemail to return call ..........................................Mariana Valentine RN on 05/09/20 at 8:23 AM PDT elephone Encount er - Darlene Tirado RN - 05/08/2020 1:59 PM PDTLeft message at home number for patient t o return my call. ...........................................Darlene Tirado RN, on at 1:59 PM PDT elephone Encounter - Darlene Tirado RN - 05/07/2020 8:19 AM PDTFred called yesterday evening and left a me ssage on my voicemail. He states that he was supposed to have an MRI in [place] at [facility] because his pacemaker is not currently MRI friendly. He needs to have something done wi th his shoulder. He is wondering if his new pacemaker that he will get when this one hits [place] in about 6 months will be MRI friendly and whether or not the leads will be MRI friendly. He is wondering if he needs to wait until then to do the MRI. He mentions a name of Tiffanie maddox as a contact at [facility] with a number of [phone] opt 2. It was not clear if he needs us to call Patience or if he was just wanting to wait for MRI un til after his pacemaker is changed out. Left message at home number for patient to return my call. ................................ ...........Darlene Tirado RN, on 05/07/20 at 8:30 AM PDT documented in this encounter Plan [...] | | | | | | [place] [address] | | | | | | [phone] | | | | | | | | +--------+ + + + + documented as of this encounter Visit Diagnoses Not on filedocumented in this encounter"
--- OUTSIDE RECORDS SUMMARY | ~2020-06-03 | XMS | Encounter Summary ---
Demographics + + + | Address | [address] | | | [place] [address] | + + + | Home Phone [...] Team Providers + +------+ + | Care Punch Press Feeder Name | Role | Phone | + +------+ + PCP | Unavailable | + +------+ + Encounter Details +--------+ + + + + | Date | Type | Department | Care Team | Description | +--------+ + + + + | 01/14/ | Hospital | [facility] | Benji, | BACKACHE NOS | | 2004 | Encounter | [facility] [place] | MD Tai [address] | | | | | CLINICAL DECISION | [place] | | | | | [address] | [place] [address] | | | | | [place], [place] | [phone] | | | | | [address] | | | | | | [phone] | | | +--------+ + + + [...] | | | | | | [place] [address] | | | | | | [phone] | | | | | | | | +--------+ + + + + documented as of this encounter Visit Diagnoses + + | Diagnosis | + + | Backache, unspecified | + + documented in this encounter"
--- OUTSIDE RECORDS SUMMARY | ~2020-06-03 | XMS | Encounter Summary ---
Demographics + + + | Address | [address] | | | [place] [address] | + + + | Home Phone [...] Providers + +------+ + | Care Head Porter Baggage Name | Role | Phone | + [...] | | CARDIOLOGY [address] | Janeen HEALTH SERVICE WORKER [address] | having chest pain) | | | | [place], | [place], | | | | | [place] [address] | [place] [address] | | | | | [phone] | [phone] | | | | | | | [...] | | | | | | [place] [address] | | | | | | [phone] | | | | | | | | +--------+ + + + + documented as of this encounter Visit Diagnoses Not on filedocumented in this encounter"
--- OUTSIDE RECORDS SUMMARY | ~2020-06-03 | XMS | Encounter Summary ---
Demographics + + + | Address | [address] | | | [place] [address] | + + + | Home Phone [...] Team Providers + +------+ + | Care Analysis Intern Name | Role | Phone | [...] Office | [facility] | Mary Bradshaw | Injury of left foot, | | 2013 | Visit | CARE [address] | Guy Larkin MD | initial encounter | | | | [place] | [address] | (Primary Dx) | | | | [address] | [place] | | | | | [phone] | [address] | | | | | | | [...] half hours. 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 I provided patient with Dr. Bradley's card so he may contact us for results. Patient's best phone number: [phone] Renetta Lockwood RN Mary De La Fuente [...] | | | | | | [place] [address] | | | | | | [phone] | | | | | | | [...] + | MISCELLANEOUS LAB | | | [phone] | + +---------+ + + | MISCELANIOUS LAB | | | [phone] | + +---------+ + + documented in this encounter Visit Diagnoses + + | Diagnosis | + + | Injury of left foot, initial encounter - Primary | + + documented in this encounter
--- OUTSIDE RECORDS SUMMARY | ~2020-06-03 | XMS | Encounter Summary ---
Demographics + + + | Address | [address] | | | [place] [address] | + + + | Home Phone [...] Providers + +------+ + | Care Smoke And Flame Specialist Name | Role | Phone | + +------+ + PCP | Unavailable | + +------+ + Encounter Details +--------+ + + + + | Date | Type | Department | Care Team | Description | +--------+ + + + + | 09/13/ | [facility] | [facility] | Jonathan, | | | 2009 | Encounter | MED CTR EMERGENCY | Martell Cr MD [address] | | | | | CENTER [address] | [address] | | | | | [place] | [place] [address] | | | | | [address] | [phone] | | | | | [phone] | | | +--------+ + + + [...] | | | | | | [place] [address] | | | | | | [phone] | | | | | | | | +--------+ + + + + documented as of this encounter Visit Diagnoses Not on filedocumented in this encounter"
--- OUTSIDE RECORDS SUMMARY | ~2020-06-03 | XMS | Encounter Summary ---
Demographics + + + | Address | [address] | | | [place] [address] | + + + | Home Phone [...] Team Providers + +------+ + | Care Enamel Finisher Name | Role | Phone | [...] CARDIOLOGY [address] | MD [address] [place] | Interrogation | | | | [place], | [place], | (Primary Dx); | | | | [place] [address] | [place] [address] | Pacemaker; | | | | [phone] | [phone] | Sinoatrial node | | | | [...] (HCC)Date of Remote Interrogation: 2019 Refer to [employer] documentation and remote PDF scanned into [employer] for remote interrogation re sults. Data collected [...] | | | | | | [place] [address] | | | | | | [phone] | | | | | | | [...] scanned into | | | [facility] for remote interrogation results. Data collected by [...]
--- OUTSIDE RECORDS SUMMARY | ~2020-06-03 | XMS | Encounter Summary ---
Demographics + + + | Address | [address] | | | [place] [address] | + + + | Home Phone [...] Team Providers + +------+ + | Care Lawn Sprinkler Servicer Name | Role | Phone | [...] + + | 06/04/ | Hospital | [facility] | Sariah, | Cervical spinal | | 2016 | Encounter | MED CTR XRAY [address] | Marietta Mason, [employer] ART TEACHER [address] | stenosis | | | | [place] | [address] | | | | | [place] [address] | [place] [address] | | | | | [phone] | [phone] | | | | | | | [...] + + + +---------+ + + | [place]-3 Fatty | CAPS, one capsule by | [...] | | | | | [place], | | | | | | [place] [address] | | | | | | [phone] | | | | | | | [...]
--- OUTSIDE RECORDS SUMMARY | ~2020-06-03 | XMS | Encounter Summary ---
Demographics + + + | Address | [address] | | | [place] [address] | + + + | Home Phone [...] | Aneurysmal | [place], | [address] [place] | | | | | dilatation | PARISA Solis | [place], | | | | | ([facility]) | [address] | [place] | | | | | Procedures | [place] | [address] | | | | | ECHO | [place], | Phone: | | | | | Complete | [place] | [phone] | | | | | | [address] | Fax: | | | | | | Phone: | [phone] | | | | | | [phone] | | | | | | | Fax: | | | | | | | [phone] | | +--------+--------+ + + + + [...] | | | | | Aneurysmal | [place], | [address] [place] | | | | | dilatation | PARISA Solis | [place], | | | | | ([facility]) | [address] | [place] | | | | | Procedures | [place] | [address] | | | | | ECHO | [place], | Phone: | | | | | Complete | [place] | [phone] | | | | | | [address] | Fax: | | | | | | Phone: | [phone] | | | | | | [phone] | | | | | | | Fax: | | | | | | | [phone] | | +--------+--------+ + + + + Encounter Details +--------+ + + + + | Date | Type | Department | Care Team | Description | +--------+ + + + + | 11/16/ | Hospital | [facility] | [place], | Aneurysmal | | 2017 | Encounter | MED CTR ECHO [address] | Janeen, SOLDER CREAM MAKER [address] | dilatation (HCC) | | | | [place] | [place], | | | | | [place] [address] | [place] [address] | | | | | [phone] | [phone] | | | | | | | [...] + + + +---------+ + + | [place]-3 Fatty | CAPS, one capsule by | [...] | | | | | | [place] [address] | | | | | | [phone] | | | | | | | [...] Patient Name VICTOR HUGO | | | LINCOLN Room Number SARAH Patient | | | [id number] Date of Study 11/16/2017 Number | | | Visit Number [id number] | | | Referring Physician GURJIT TROY Number | | | ELIZABETHANGELIA SOLIS Date | | | of 1960 Car Detailer ROMAINE | | | MARISSA TIPTON Age 57 year(s) Interpreting | | | GURJIT TROY | | | Executive Candidate Developer SYDNI CAGLE, | | | | | | Gender Male Nurse | | | Stress Plant Ecologist Procedure Type of | | | Study [...] | | | EF | | | Raogtvcyl07% Left Ventricle Diastolic Dimension: 5.12 cm | [...] Volume: 46.33 ml | | | EF Mvqyazsyd90% | | | | | | Left [...] BARRY Room Number SARAH | | Patient [id number] Date of Study 11/16/2017 Number Visit Number | | [id number] Referring Physician GURJIT TROY | | Number NORMA SOLIS Date of | | 1960 Car Detailer ROMAINE TIPTON RDCS Age 57 year(s) | | Interpreting GURJIT TROY Executive Candidate Developer | | SYDNI CAGLE MD | | [...] LA Volume: 46.33 ml | | EF Dwdrlppug46% Left Ventricle Diastolic Dimension: 5.12 cm Systolic [...] LA Volume: 46.33 ml | | EF Oyycbdwds51% | | | | Left Ventricle | [...]
--- OUTSIDE RECORDS SUMMARY | ~2020-06-03 | XMS | Encounter Summary ---
Demographics + + + | Address | [address] [place] [address] [address] | | | [place] [address] | + + + | Home Phone [...] [place] | | | | | [address] | | + + + + + Care Team Providers + +------+ + | Care Environmental Marketing Representative Name | Role | Phone | [...] Chest pain | Farooq Almaguer, | [address] | | | | | Bradycardia | DO [address] | | | | | Procedures | Yao Booth | [facility] | | | | | | [facility] | Health and | | | | | TRANSTHORACI | [facility] [place] | Healing, | | | | | C | [address] | [address] | | | | | ECHOCARDIOGR | Phone: | [place], [place] | | | | | AM, ADULT | [phone] | [address] | | | | | | Fax: | Phone: | | | | | | [phone] | [phone] | +--------+--------+ + + + + Reason [...] | | | | | | | [place] [address] | | | | | | | Phone: | | | | | | | [phone] | | | | | | | Fax: | | | | | | | [phone] | | +--------+--------+ + + + + Encounter Details +--------+---------+ + + + | Date | Type | Department | Care Team | Description | +--------+---------+ + + + | 02/03/ | Office | Cardiology General | Arlette Drew, | Chest pain (Primary | | 2010 | Visit | at [facility] [address] | MD | Dx); Bradycardia; | | | | [facility] for | | Pacemaker | | | | Health and Healing, | | | | | | Building | | | | | | [place], [place] | | | | | | [address] | | | | | | [phone] | | | +--------+---------+ + + + [...] per Dr. Drew's note. Farooq Jamil DO Acting Teacher Clinical multi care technician/ Division of Cardiovascular Medicine asonrussell Yajaira, RN - 02/09/2011 12:59 PM PDT PACEMAKER HISTORY Primary Care Provider: Darion Holden DO Heavy Equipment Diesel Mechanic: Arlette Drew MD Moe Sanchez is a [...] chamber permanent pacemaker implantation on 06/14/09 in [place], Chronic smoker, mild DIDIER, bip olar disorder with anxiety who presents for second opinion regarding his syncopal episodes. Pt. started noticing dizzy spells and episodes of syncope about 3 years ago , pacemaker was put at the recommendation of Heavy Equipment Diesel Mechanic Dr. Singletary from [place]. [place]. Pt. states lala bhatti was put>1 [...] in 1 week, under GA with uneventful hau-operative period. States he has lost ~50 lbs [...] form tilt table testing but NA at [facility] May need to involve endocrine and [...] [address] Mailcode: Ch9a [facility], [address] [facility] [address] documented in this en counter Plan of [...] Way Lab) | [facility] | | [facility] [address] | REGIONAL | | [place] [address] | LABORATORY | + + + + + + + + | Performing | Address | City/State/Zipcode | Phone Number | | Organization | | | | + + + + + | [facility] | [address] | [place] [address] | | | LABORATORY | | | [...] 10.0 ug/dl | LABORATORY | | [facility] ([address] [facility]) | | | [facility] [place] [address] | | | [address] [facility] [place] [address] | | + + + + + + + + | Performing | Address | City/State/Zipcode | Phone Number | | Organization | | | | + + + + + | [facility] | [address] | [place] [address] | | | LABORATORY | | | [...] | | | DEPARTMENT | | | PRYDEINIG | | | OF | | | [...] | + + + + + | [facility] DEPARTMENT | [address] | [place] [address] | | | PATHOLOGY | [address] [...] DEPT OF | [address] | [place], [place] | | | CARDIOLOGY | [address] | [address] | | + + + + + [...] DEPT OF | [address] | [place], [place] | | | CARDIOLOGY | [address] | [address] | | + + + + + [...] view image for the detailed interpretation from [employer] results. | CARDIOLOGY | + + + + + + + + | Performing | Address | City/State/Zipcode | Phone Number | | Organization | | | | + + + + + | [facility] DEPT OF | [address] | [place], [place] | | | CARDIOLOGY | [address] | [address] | | + + + + + documented in this encounter Visit Diagnoses + + | Diagnosis | + + | Chest pain - Primary Chest pain, unspecified | + + | Bradycardia Other specified cardiac dysrhythmias | + + | Pacemaker Cardiac pacemaker in situ | + + documented in this encounter
--- OUTSIDE RECORDS SUMMARY | ~2020-06-03 | XMS | Encounter Summary ---
Demographics + + + | Address | [address] | | | [place] [address] | + + + | Home Phone [...] + + | 01/31/ | Hospital | [facility] | | | | 2008 | Encounter | MED CTR EMERGENCY | | | | | | [address] | | | | | | [place] | | | | | | [address] | | | | | | [phone] | | | +--------+ + + + [...] | | | | | | [place] [address] | | | | | | [phone] | | | | | | | | +--------+ + + + + documented as of this encounter Visit Diagnoses Not on filedocumented in this encounter"
--- OUTSIDE RECORDS SUMMARY | ~2020-06-03 | XMS | Encounter Summary ---
Demographics + + + | Address | [address] | | | [place] [address] | + + + | Home Phone [...] Team Providers + +------+ + | Care Pocketbook Maker Name | Role | Phone | [...] + + | 04/12/ | Telephone | [facility] | Daljit Singletary, | Other (issues with | | 2017 | | CARDIOLOGY [address] | MD [address] [place] | low blood pressure | | | | [place], | [place], | and dizziness) | | | | [place] [address] | [place] [address] | | | | | [phone] | [phone] | | | | | | | [...] | | | | | | [place] [address] | | | | | | [phone] | | | | | | | | +--------+ + + + + documented as of this encounter Visit Diagnoses Not on filedocumented in this encounter"
--- OUTSIDE RECORDS SUMMARY | ~2020-06-03 | XMS | Encounter Summary ---
Demographics + + + | Address | [address] | | | [place] [address] | + + + | Home Phone [...] Team Providers + +------+ + | Care Keg Filler Name | Role | Phone | + +------+ + | Michael Amanda DO | PCP | | + +------+ + Encounter Details +--------+ + + + + | Date | Type | Department | Care Team | Description | +--------+ + + + + | 10/01/ | Hospital | [facility] | Mary Bradshaw | | | 2013 | Encounter | MED CTR JORDEN SEARSA[facility] | Guy Larkin MD | | | | | [address] [place] | [address] | | | | | [place], [place] | [place], [place] | | | | | [address] | [address] | | | | | [phone] | | | +--------+ + + + [...] + + + +---------+ + + | [place]-3 Fatty | CAPS, one capsule by | [...] | | | | | | [place] [address] | | | | | | [phone] | | | | | | | [...] + | MISCELLANEOUS LAB | | | [phone] | + +---------+ + + | MISCELANIOUS LAB | | | [phone] | + +---------+ + + documented in this encounter Visit Diagnoses Not on filedocumented in this encounter"
--- OUTSIDE RECORDS SUMMARY | ~2020-06-03 | XMS | Encounter Summary ---
Demographics + + + | Address | [address] | | | [place] [address] | + + + | Home Phone [...] | | | | [place] | [phone] | | | | | [address] | | | | | | [phone] | | | +--------+ + + + [...] + + + +---------+ + + | [place]-3 Fatty | CAPS, one capsule by | [...] | | | | | | [place] [address] | | | | | | [phone] | | | | | | | [...]
--- OUTSIDE RECORDS SUMMARY | ~2020-06-03 | XMS | Encounter Summary ---
Demographics + + + | Address | [address] [place] [address] [address] | | | [place] [address] | + + + | Home Phone [...] [place] | | | | | [address] | | + + + + + Care Team Providers + +------+ + | Care High School French Teacher Name | Role | Phone | [...] | | [address] | [place], [place] | | | | | for Health and | [address] | | | | | [facility] 2 | [phone] | | | | | [place], [place] | | | | | | [address] | | | | | | [phone] | | | +--------+ + + + [...]
--- OUTSIDE RECORDS SUMMARY | ~2020-06-03 | XMS | Encounter Summary ---
Demographics + + + | Address | [address] [place] [address] [address] | | | [place] [address] | + + + | Home Phone [...] [place] | | | | | [address] | | + + + + + Care Team Providers + +------+ + | Care Karate Instructor Name | Role | Phone | [...] | | 2019 | | Center at [facility] [address] | MD [address] | | | | | [address] | [place], [place] | | | | | for Health and | [address] | | | | | [facility] 2 | [phone] | | | | | [place], [place] | | | | | | [address] | | | | | | [phone] | | | +--------+ + + + [...]
--- OUTSIDE RECORDS SUMMARY | ~2020-06-03 | XMS | Encounter Summary ---
Demographics + + + | Address | [address] [place] [address] [address] | | | [place] [address] | + + + | Home Phone [...] [place] | | | | | [address] | | + + + + + Care Team Providers + +------+ + | Care Cotton Stomper Name | Role | Phone | + [...] | | | | l weight | [place], [place] | | | | | | loss | [address] | | | | | | Procedures | Phone: | | | | | | CONSULT TO | [phone] | | | | | | NON - [facility] | Fax: | | | | | | PROVIDER | [phone] | | | | | | CONSULT [...] | | [address] | [place], [place] | referral ) | | | | for Health and | [address] | | | | | [place] [address] | [phone] | | | | | [place], [place] | | | | | | [address] | | | | | | [phone] | | | +--------+ + + + [...]
--- OUTSIDE RECORDS SUMMARY | ~2020-06-03 | XMS | Encounter Summary ---
Demographics + + + | Address | [address] | | | [place] [address] | + + + | Home Phone [...] Team Providers + +------+ + | Care Redevelopment Manager Name | Role | Phone | [...] [place], [place] | | | | | [place] | | [address] Phone: | | | | | CYSTO/URETER | | [phone] | | | | | O | | Fax: | | | | | W/LITHOTRIPS | | [phone] | | | | | Y &INDWELL [...] + + | 04/13/ | Surgery | [facility] | Matthew Uriarte | Cystoscopy, Left | | 2018 | | MED CTR OR INTRA OP | Dahl, MD [address] | ureteroscopy with | | | | [address] | [address] [place] [address] | laser lithotripsy, | | | | [place] | [address] | Left ureteral stent | | | | [address] | | placement | | | | [phone] | | | +--------+---------+ + + + [...] + + + | Blood Pressure | 155/107 | 04/13/2019 9:40 AM | | | | | PDT | | + + + + + | Pulse | 75 | 04/13/2019 9:45 AM | | | | | PDT | | + + + + + | Temperature | 36.6 C (97.9 F) | 04/13/2019 9:26 AM | | | | | PDT | | + + + + + | Respiratory Rate | 15 | 04/13/2019 9:45 AM | | | | | PDT | | + + + + + | Oxygen Saturation | 99% | 04/13/2019 9:45 AM | | | | | PDT [...] Care Everywhere.Kidney Stones, Treating: Ureteroscopic Stone Removal (Zambian)Stents, Ureteral (Zambian)documented in this encounter Medications at Time of [...] + + + +---------+ + + | [place]-3 Fatty | CAPS, one capsule by [...] | | | | | | | chicken ranch coronary | | | | | | | artery of chicken ranch | | | | | | | [...] documented as of this encounter H&P Notes Matthew Uriarte MD - 04/13/2019 8:09 AM PDTSURGICAL INTERIM HISTORY & PHYSICAL UPD ATE Pt. Name/Age/: Moe Sanchez 59 y.o. 1960 Date of admission: 04/13/2019 The current H&P was reviewed. The patient was reexamined. Re-evaluation of the patient co nfirms the necessity for the scheduled procedure. No change has occurred in the patient s condition since the H&P was completed less than 30 days ago. VERIFICATION OF CONSENT (PARQ) The patient was counseled regarding the procedure, its indications, risks, potential compli cations and alternatives. Any questions were answered. Consent was obtained. Electronically signed by: Matthew Uriarte MD, 04/13/2019 8:09 [facility] Jaron Galaviz MD - 04/07/2019 9:45 AM PDTFormatting of this note might be different from the or iginal. Chief Complaint Patient presents with New Patient [...] abdominal and testicle pain. Pain is intermittent. Naus ea has improved somewhat Yesterday he reports passing a stone, but states the stone was only about 3-4 mm in size. H e continues to have gross hematuria Also complains [...] CV LHC; Surgeon: Daljit Singletary MD; Location: [facility] CV LAB CARDIAC CATHERIZATION N/A 01/25/2019 Procedure: CV Cor Angio; Surgeon: Daljit Singletary MD; Location: [facility] CV LAB COLONOSCOPY N/A 12/24/2017 Procedure: COLONOSCOPY; Surgeon: Emmanuel Daniel MD; Location: [facility] MEDICAL PROCEDURE UNIT COLONOSCOPY N/A 01/05/2019 Procedure: COLONOSCOPY; Surgeon: Emmanuel Daniel MD; Location: [facility] MEDICAL PROCEDURE UNIT EGD 12/24/2017 [...] Procedure: EGD; Surgeon: Emmanuel Daniel MD; Location: [facility] MEDICAL PROCEDURE UNIT UPPER GASTROINTESTINAL ENDOSCOPY N/A 01/05/2019 Procedure: EGD; Surgeon: Emmanuel Daniel MD; Location: [facility] MEDICAL PROCEDURE UNIT VASECTOMY Family History: Family History Problem Relation Age of Onset Heart disease Mother Stroke Mother Cancer Father colon,prostate Heart disease Father Heart attack Father Hypertension Father Stroke Father Social History: Social History Socioeconomic History Marital status: Spouse name: nAdreia Number of children: 2 Years of education: [...] EVERY DAY, Disp: 90 tablet, Rfl: 3 [facility] Natural Products (OSTEO BI-FLEX/5-LOXIN ADVANCED PO), Take [...] 911, Disp: 100 ta blet, Rfl: 3 [place]-3 Fatty Acids (SALMON OIL-1000 PO), CAPS, one capsule by mouth daily twice daily , Disp: , Rfl: ondansetron (ZOFRAN ODT) 4 mg disintegrating tablet, Take 4 mg by mouth., Disp: , Rfl: ONE TOUCH DELICA LANCETS [facility], Check glucose as needed for hypoglycemia, Disp: [...] have not thoroughly proofread this note, and body cleaner errors are very likely to occur. CC: Kirk French MD documented in this encounter Miscellaneous Notes Op Note - Matthew Uriarte MD - 04/13/2019 1:03 PM PDTOperative Note Pt. Name/Age/: Moe Sanchez 59 y.o. 1960 Med. Record Number: [id number] Date of admission: 04/13/2019 Date of Operation/Procedure: 04/13/2019 Preoperative Diagnosis: Kidney stone Postoperative Diagnosis: same Surgeon: Matthew Uriarte MD Cigar Head Holer(s): none Anesthesia Provider(s): Anesthesiologist: Jay Benjamin MD Anesthesia Type: General Procedure: Left URS, LL and stent Operative Indications: Moe Sanchez is a 59 y.o. male who presents with signs and symptoms consistent with kidney stone. This was confirmed with an imaging study. The p atient and/or guardian was counseled and consented to proceed. The risks, benefits, complications, treatment options, and expected outcomes were discussed with the patient and/or family. The patient was counseled and consented to proceed to the o perating room for left URS LL and stent. Discussed risks, including infection, bleeding, ne ed to convert to an open operation, inadvertent injury to intra-abdominal organs, recognized or unrecognized, need for further surgery, incisional site herniation. Also discussed risks of failure to treat, failure to diagnose. The patient and/or guardian understands and conse nts to proceed. Operative Findings: no ureteral stone seen Operation: After consent was obtained the patient was brought back to the operating room and rg melly in the supine position. A preoperative timeout was performed. Bilateral SCDs were appl ied lower extremities and the patient received 500 mg of Cipro orally in the preoperative ar ea. After successful induction of general anesthesia the patient was placed in the dorsal l ithotomy position and the genitals were prepped and draped in the usual fashion. A 23 Frenc h cystoscope was advanced into the bladder via the urethra. There were no gross anomalies s een. The left ureteral orifice was visualized and cannulated using a guidewire. This is ad vanced up per the kidney under fluoroscopic guidance. The mucosa around the left UO showed a very significant hematoma. We then used a semirigid ureteroscope to explore the ureter. There was edema in the distal ureter however were unable to identify a stone. We then place d a second guidewire over which we placed our 11/04 ureteral access sheath and explored the renal pelvis. We revealed to identify stone in the lower pole of the kidney. Using a 200 m laser fiber the stone was fragmented. There was several other smaller stones seen and th joshua were fragmented as well. We then used a stone basket to retrieve this larger pieces. A t the end of the procedure there were no stone fragments and greater than 2 mm in size. We then removed the ureteral access sheath under visual guidance. There were no significan t mucosal injury seen. Given this was decided to leave strings on the stent. A 6 Persian variable length stent was then placed over guidewire advanced up toward the kidn ey under fluoroscopic guidance. A good curl was seen in the kidney as well as the bladder. The strings on the stent were then secured to the penis using Mastisol and Steri-Strips. T he bladder was then drained and this terminates the procedure. Estimated Blood Loss: 0 Transfused: No Drains: 6fr multilength stent Total IV Fluids: Specimen (s): kidney stone Complications: None; patient tolerated the procedure well. Disposition: PACU - hemodynamically stable. Patient Condition: stable Plan: Patient will remove the stent in 5 days by pulling the strings. He will then follow- up in 1 month for 24-hour urine Electronically Signed by: Matthew Uriarte, 04/13/2019 13:04 [facility] documented in this encounter Plan of Treatment [...] [address] | | | | | | [address], | | | | | | [place] [address] | | | | | | [phone] | | | | | | | [...] [facility] | | | | | | at:[phone]. | | | | + + + [...] + | Performed at: 01 - [facility] [address] | REFERENCE LAB | | [place], [place] [id number] Fittings Tightener: Yeny Rios MD, Phone: | ARSH CASTANON | | [phone] | | + + + + + + + + | Performing | Address | City/State/Zipcode | Phone Number | | Organization | | | | + + + + + | REFERENCE LAB | [address] | [place], [place] | [phone] | | [facility] | [facility] | [address] | | + + + + + [...] [address] | [place] | [phone] | | [facility] | | [address] | | | - LABORATORY | | [...] + + + | Red Blood | 4.82 | 4.30 - 5.70 | [...] nRBC | | K/uL | ST[facility]HELLE [...] [address] | [place] | [phone] | | [facility] | | [address] | | | - LABORATORY | | [...] [address] | [place] | [phone] | | [facility] | | [address] | | | - LABORATORY | | [...] + | [facility] | [address] | [place] | [phone] | | [facility] | | [address] | | | - LABORATORY | | [...] not | >60Comment: GLOMERULAR | >=60 | [facility] | | | | FILTRATION | mL/min/1.73m2 | [facility] | | | ANGOLAN | RATE,ESTIMATED | | MEDICAL | | | | mL/min/1.11u7Niec than | | CENTER - | | [...] [address] | [place] | [phone] | | [facility] | | [address] | | | - LABORATORY | | [...] day), First | | | dose on [facility] 04/13/19 at 1400, | | | [...] HOUR PRN, | | | Pain, Starting [facility] 04/13/19 at | | | 1046, [...] | | | | | | | [id number]-rky-[id number] use of at least | | | [...]
--- OUTSIDE RECORDS SUMMARY | ~2020-06-03 | XMS | Encounter Summary ---
Demographics + + + | Address | [address] | | | [place] [address] | + + + | Home Phone [...] Providers + +------+ + | Care Laborer Landscape Name | Role | Phone | + [...] + + | 01/12/ | [facility] | [facility] | Silvia, | Other (plan of care) | | 2019 | | CARDIOLOGY [address] | Janeen SYSTEMS TEST ENGINEER [address] | | | | | [place], | [place], | | | | | [place] [address] | [place] [address] | | | | | [phone] | [phone] | | | | | | | [...] be tter today. He would like Janeen MCCAULYE to know, and is there anything else [...] Valentine RN on 01/16/19 at 11:26 [facility] Darlene Tirado RN [...] Tirado RN on 01/13/19 at 8:44 elephone [facility] - 01/12/2019 5:25 [...] patient to return my call. .......... .................................Darlene Tiraod RN on 01/12/19 at 9:17 documented in [...] | | | | | | [place] [address] | | | | | | [phone] | | | | | | | | +--------+ + + + + documented as of this encounter Visit Diagnoses Not on filedocumented in this encounter"
--- OUTSIDE RECORDS SUMMARY | ~2020-06-03 | XMS | Encounter Summary ---
Demographics + + + | Address | [address] | | | [place] [address] | + + + | Home Phone [...] Team Providers + +------+ + | Care Teletype Adjuster Name | Role | Phone | [...] | | | | stenosis | L, NEUROPHYSIOLOGICAL TECHNICIAN [address] | | | | | | Procedures | [address] | | | | | | CT | [address] | | | | | | Myelography | [place], [place] | | | | | | Cervical | [address] | | | | | | Spine | Phone: | | | | | | | [phone] | | | | | | | Fax: | | | | | | | [phone] | | +--------+--------+ + + + + [...] + | 06/04/ | Hospital | [facility] | Sariah, | Cervical spinal | | 2016 | Encounter | MED CTR [address] | Marietta Mason NEUROPHYSIOLOGICAL TECHNICIAN [address] | stenosis | | | | [place], | [address] | | | | | [place] [address] | [place] [address] | | | | | [phone] | [phone] | | | | | | | [...] W | | | | | | [place], | | | | | | [place] [address] | | | | | | [phone] | | | | | | | [...]
--- OUTSIDE RECORDS SUMMARY | ~2020-06-03 | XMS | Encounter Summary ---
Demographics + + + | Address | [address] | | | [place] [address] | + + + | Home Phone [...] Team Providers + +------+ + | Care Take Down Sorter Name | Role | Phone | + +------+ + | Kirk French MD | PCP | | + +------+ + Reason for Visit +--------+--------+ + | Reason | Onset | Comments | | | Date | | +--------+--------+ + | Other | 01/05/ | | | | 2019 | | +--------+--------+ + Encounter Details +--------+ + + + + | Date | Type | Department | Care Team | Description | +--------+ + + + + | 01/05/ | Telephone | [facility] | Emmanuel Daniel MD | Other | | 2019 | | GASTROENTEROLOGY | [address], [place] | | | | | [address] [place] | [address] [place], [place] | | | | | [address] [place], [place] | [address] | | | | | [address] | | | | | | [phone] | | | +--------+ + + + [...] Telephone Encounter - Kaylynn Copeland RN - 01/11/2019 2:53 PM PSTPatient stopped by our office. Reviewed results of egd,colonoscopy with patient. Stool studies negative. Lac toferrin negative. Duodenal biopsies normal. Biopsies from right and left colon normal. P atient states taking the Metamucil 3 times a day has helped. He is also taking a probiotic and eating radha yogurt and drinking proteins drinks. He states cardiology is doing some m ore testing, He states he realizes most of his GI symptoms are related to stress. Ren marrero signed by Kaylynn Copeland RN at 01/11/2019 2:58 PM PSTTelephone Encounter - Bridgette Oliva - 01/11/2019 8:55 AM PSTPatient returned phone call to Darryn. Per patient, "he has to come in for a cardiology appointment so he is going to drop by after that". Patient d id not leave a call back number. elephone Encounter - Kaylynn Copeland RN - 01/10/2019 10:01 AM PSTLeft message f or patient to call for results. elephone Encoun Anastacio Bull - 01/05/2019 2:20 PM PSTName of Caller: Moe Sanchez Name of Patient: Moe Sanchez Reason for call: Patient called and stated that he not feeling any better and once his biop sy results come back he would like to be transferred to [facility]. Routing to clinical staff. Provider/Nurse: Dr. Daniel Call back number: [phone] documented in this encou nter Plan of [...] | | | | | | [place] [address] | | | | | | [phone] | | | | | | | | +--------+ + + + + documented as of this encounter Visit Diagnoses Not on filedocumented in this encounter
--- OUTSIDE RECORDS SUMMARY | ~2020-06-03 | XMS | Encounter Summary ---
Demographics + + + | Address | [address] | | | [place] [address] | + + + | Home Phone [...] Providers + +------+ + | Care Housekeeping Assistant Name | Role | Phone | [...] [address] | | | | | [address] | [place], [place] | | | | | [phone] | [address] | | | | | | [phone] | | | | | | | [...] | | | | | | [place] [address] | | | | | | [phone] | | | | | | | [...]
--- OUTSIDE RECORDS SUMMARY | ~2020-06-03 | XMS | Encounter Summary ---
Demographics + + + | Address | [address] | | | [place] [address] | + + + | Home Phone [...] Team Providers + +------+ + | Care Circuit Design Engineer Name | Role | Phone [...] W | rescheduled) | | | | [place], | [place], | | | | | [place] [address] | [place] [address] | | | | | [phone] | [phone] | | | | | | | [...] 9:06 AM PSTPatient called back to [facility]. Patient is now scheduled to come [...] | | | | | | [place] [address] | | | | | | [phone] | | | | | | | | +--------+ + + + + documented as of this encounter Visit Diagnoses Not on filedocumented in this encounter"
--- OUTSIDE RECORDS SUMMARY | ~2020-06-03 | XMS | Encounter Summary ---
Demographics + + + | Address | [address] | | | [place] [address] | + + + | Home Phone [...] Team Providers + +------+ + | Care Diesel Technician Mechanic Name | Role | Phone | [...] | on | GASTROENTEROLOGY | [address], [place] | | | | | [address] [place] | [address] [place], [place] | | | | | [address] [place], [place] | [address] | | | | | [address] | | | | | | [phone] | | | +--------+ + + + [...] | | | | | | [place] [address] | | | | | | [phone] | | | | | | | | +--------+ + + + + documented as of this encounter Visit Diagnoses Not on filedocumented in this encounter"
--- OUTSIDE RECORDS SUMMARY | ~2020-06-03 | XMS | Encounter Summary ---
Demographics + + + | Address | [address] | | | [place] [address] | + + + | Home Phone [...] Providers + +------+ + | Care Stone Rougher Name | Role | Phone | + +------+ + PCP | Unavailable | + +------+ + Encounter Details +--------+ + + + + | Date | Type | Department | Care Team | Description | +--------+ + + + + | 02/21/ | [facility] | [facility] | Geri Angel, | | | 2011 | Encounter | MED CTR XRAY [address] | AUTO RESEARCH ENGINEER [address] | | | | | [address] [place] | [place] | | | | | [place] [address] | [id number] | | | | | [phone] | | | +--------+ + + + [...] | | | | | | [place] [address] | | | | | | [phone] | | | | | | | | +--------+ + + + + documented as of this encounter Visit Diagnoses Not on filedocumented in this encounter"
--- OUTSIDE RECORDS SUMMARY | ~2020-06-03 | XMS | Encounter Summary ---
Demographics + + + | Address | [address] | | | [place] [address] | + + + | Home Phone [...] Team Providers + +------+ + | Care Hydrate Control Tender Name | Role | Phone | [...] + + | 03/02/ | Emergency | [facility] | Lizbeth Green | Situational stress | | 2013 | | MED CTR EMERGENCY | DO Nicole Fink | (Primary Dx) | | | | CENTER [address] | [address] [place], [place] | | | | | [place], [place] | [address] | | | | | [address] | | | | | | [phone] | | | +--------+ + + + [...] new doc you can try over at [facility] documented in this encounter Medications at [...] + + + +---------+ + + | [place]-3 Fatty | CAPS, one capsule by | [...] feels terrible. Last night he went to [facility] because he was continuing to h ave [...] Daljit Singletary MD. On 03/07/2014. Contact information: [address] [place] [address], Cardiology [address] [facility] [address] Lizbeth Green MD 03/03/14 1510 Ama Campbell RN - 03/02/2014 6:37 PM PDTPatient dc's home, RX, pt verbalized understan ding documented in thi s encounter Miscellaneous Notes Plan of Care - ONBASE SCAN WAMT - 03/05/2014 12:00 AM PDT D Triage Notes - Ivanna Hernandez RN - 03/02/2014 5:23 PM PDT Pt c/o increased BP & SOB today, feeling very tired. Seen in [facility] last week for same compl aint, seen last night Lavina for chest pain (sharp in quality). documented [...] | | | | | | [place] [address] | | | | | | [phone] | | | | | | | | +--------+ + + + + documented as of this encounter Visit Diagnoses + + | Diagnosis | + + | Situational stress - Primary Other psychological or physical stress, not elsewhere | | classified | + + documented in this encounter
--- OUTSIDE RECORDS SUMMARY | ~2020-06-03 | XMS | Encounter Summary ---
Demographics + + + | Address | [address] | | | [place] [address] | + + + | Home Phone [...] Team Providers + +------+ + | Care Refractory Repairer Name | Role | Phone | + +------+ + PCP | Unavailable | + +------+ + Encounter Details +--------+ + + + + | Date | Type | Department | Care Team | Description | +--------+ + + + + | 06/14/ | [facility] | [facility] | Daljit Singletary, | | | 2008 - | Encounter | MED CTR MP INTRA OP | MD [address] | | | | | [address] | [address], | | | 06/15/ | | [place] | [place] [address] | | | 2008 | | [address] | [phone] | | | | | [phone] | | | +--------+ + + + [...] | | | | | | [place] [address] | | | | | | [phone] | | | | | | | | +--------+ + + + + documented as of this encounter Visit Diagnoses Not on filedocumented in this encounter"
--- OUTSIDE RECORDS SUMMARY | ~2020-06-03 | XMS | Encounter Summary ---
Demographics + + + | Address | [address] | | | [place] [address] | + + + | Home Phone [...] Providers + +------+ + | Care Wood Carver Name | Role | Phone | [...] + | 08/06/ | Telephone | [facility] | Geri Angel, | Other (issues with | | 2014 | | CARDIOLOGY [address] | THERMAL CUTTING MACHINE OPERATOR [address] [place] | edema and chest | | | | [place], | [place] | pain) | | | | [place] [address] | [address] | | | | | [phone] | | | +--------+ + + + [...] | | | | | | [place] [address] | | | | | | [phone] | | | | | | | | +--------+ + + + + documented as of this encounter Visit Diagnoses Not on filedocumented in this encounter"
--- OUTSIDE RECORDS SUMMARY | ~2020-06-03 | XMS | Encounter Summary ---
Demographics + + + | Address | [address] | | | [place] [address] | + + + | Home Phone [...] Team Providers + +------+ + | Care Capital Project Engineer Name | Role | Phone | [...] + + | 04/24/ | Office | [facility] | Jay Cohn PA | DIDIER on CPAP (Primary | | 2012 | Visit | SLEEP DISORDER [address] | [address] | Dx) | | | | [address] [place] | [place] | | | | | [place] [address] | [address] | | | | | [phone] | | | +--------+---------+ + + + [...] pillows obtained from: [facility] [place] pressure is: 13 cm CPAP download shows [...] to go to [facility] [place] to have them download his memory card. I will readjust his pressure, if necessary. I will call him with the results. He is to work toward wearing his CPAP 100% of the time he is asleep. I will follow up again in 1 month, sooner prn. Fifteen minutes were spent zasu-ax-deik, wi th the majority of time spent [...] | | | | | | [place] [address] | | | | | | [phone] | | | | | | | | +--------+ + + + + documented as of this encounter Visit Diagnoses + + | Diagnosis | + + | DIDIER on CPAP - Primary Obstructive sleep apnea (adult) (pediatric) | + + documented in this encounter
--- OUTSIDE RECORDS SUMMARY | ~2020-06-03 | XMS | Encounter Summary ---
Demographics + + + | Address | [address] | | | [place] [address] | + + + | Home Phone [...] + +------+ + | Care Inside Sales Consultant Name | Role | Phone [...] | | CARDIOLOGY [address] | [address] [place] | | | | | [place], | [place], | | | | | [place] [address] | [place] [address] | | | | | [phone] | [phone] | | | | | | | [...] | | | | | | [place] [address] | | | | | | [phone] | | | | | | | [...] | [facility] | | | (REF) | | | [...] | [facility] | [address] | [place] | [phone] | | [facility] | | [address] | | | - LABORATORY | | | | + + + + + | [facility] | [address] | [place], [place] | | | [facility] | | [address] | | | - [...] | ESTIMATE | | | ST[facility] MICHELLE | | | (REF) | | [...] 91.1 | 80.0 - 100.0 fL | [facility] | | | | | [...] [address] | | | | | [facility] | | | | | - LABORATORY | | | | + +---------+ + + documented in this encounter Visit Diagnoses Not on filedocumented in this encounter"
--- OUTSIDE RECORDS SUMMARY | ~2020-06-03 | XMS | Encounter Summary ---
Demographics + + + | Address | [address] | | | [place] [address] | + + + | Home Phone [...] Providers + +------+ + | Care Linoleum Floor Layer Name | Role | Phone | [...] [address] | | | | | | [place], [place] | (Fax) | | | | | [address] | | | | | | [phone] | | | +--------+ + + + [...] | | | | | | [place] [address] | | | | | | [phone] | | | | | | | | +--------+ + + + + documented as of this encounter Visit Diagnoses Not on filedocumented in this encounter"
--- OUTSIDE RECORDS SUMMARY | ~2020-06-03 | XMS | Encounter Summary ---
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
--- OUTSIDE RECORDS SUMMARY | ~2020-06-03 | XMS | Encounter Summary ---
Demographics + + + | Address | [address] [place] [address] [address] | | | [place] [address] | + + + | Home Phone [...] [place] | | | | | [address] | | + + + + + Care Team Providers + +------+ + | Care Ob Tech Name | Role | Phone | [...] | | 2020 | | Center at [facility] [address] | [facility] | (capsule referral) | | | | [facility] | Road [place], [place] | | | | | for Health and | [address] | | | | | [facility] 2 | | | | | | [place], [place] | | | | | | [address] | | | | | | [phone] | | | +--------+ + + + [...]
--- OUTSIDE RECORDS SUMMARY | ~2020-06-03 | XMS | Encounter Summary ---
Demographics + + + | Address | [address] | | | [place] [address] | + + + | Home Phone [...] Providers + +------+ + | Care Roll Coating Machine Operator Name | Role | Phone [...] [address] | | | | | | [place], [place] | (Fax) | | | | | [address] | | | | | | [phone] | | | +--------+ + + + [...] | | | | | | [place] [address] | | | | | | [phone] | | | | | | | | +--------+ + + + + documented as of this encounter Visit Diagnoses Not on filedocumented in this encounter"
--- OUTSIDE RECORDS SUMMARY | ~2020-06-03 | XMS | Encounter Summary ---
Demographics + + + | Address | [address] | | | [place] [address] | + + + | Home Phone [...] Providers + +------+ + | Care Senior Engineering Team Leader Name | Role | Phone [...] [address] | | | | | [place], | [place], | | | | | [place] [address] | [place] [address] | | | | | [phone] | [phone] | | | | | | | [...] | | | | | | [place] [address] | | | | | | [phone] | | | | | | | | +--------+ + + + + documented as of this encounter Visit Diagnoses Not on filedocumented in this encounter"
--- OUTSIDE RECORDS SUMMARY | ~2020-06-03 | XMS | Encounter Summary ---
Demographics + + + | Address | [address] | | | [place] [address] | + + + | Home Phone [...] + +------+ + | Care After School Coordinator Name | Role | Phone | [...] [address] | | | | | | [place], [place] | (Fax) | | | | | [address] | | | | | | [phone] | | | +--------+ + + + [...] | | | | | | [place] [address] | | | | | | [phone] | | | | | | | | +--------+ + + + + documented as of this encounter Visit Diagnoses Not on filedocumented in this encounter"
--- OUTSIDE RECORDS SUMMARY | ~2020-06-03 | XMS | Encounter Summary ---
Demographics + + + | Address | [address] [place] [address] [address] | | | [place] [address] | + + + | Home Phone [...] [place] | | | | | [address] | | + + + + + Care Team Providers + +------+ + | Care Nailing Machine Feeder Name | Role | Phone [...] | | [facility] | [place], [place] | | | | | [facility] Health and | [address] | | | | | Healing, [facility] 2 | [phone] | | | | | [place], [place] | | | | | | [address] | | | | | | [phone] | | | +--------+ + + + [...]
--- OUTSIDE RECORDS SUMMARY | ~2020-06-03 | XMS | Encounter Summary ---
Demographics + + + | Address | [address] | | | [place] [address] | + + + | Home Phone [...] | + + +---------+ + | Nadine Patelglaenvarsha | ECON | Unknown | | + + +---------+ + Care Team Providers + +------+ + | Care Slitting Machine Operator Name | Role | Phone [...] + + | 05/28/ | Refill | [facility] | Kirk French | Medication Refill | | 2019 | | [facility] | MD Bre[address] | | | | | [facility] [address] | [address] | | | | | [address] | [place] [address] | | | | | [place], [place] | [phone] | | | | | [address] | | | | | | [phone] | | | +--------+--------+ + + + [...] Miscellaneous Notes Telephone Encounter - Geri Bear Manager Community - 05/29/2020 10:29 AM Tanya ov [facility] umaguila in this encounter Plan [...] | | | | | | [place] [address] | | | | | | [phone] | | | | | | | | +--------+ + + + + documented as of this encounter Visit Diagnoses Not on filedocumented in this encounter"
--- OUTSIDE RECORDS SUMMARY | ~2020-06-03 | XMS | Encounter Summary ---
Demographics + + + | Address | [address] | | | [place] [address] | + + + | Home Phone [...] Team Providers + +------+ + | Care Sewer Separation Designer Name | Role | Phone | [...] | 04/24/ | Telephone | [facility] [place] | Geri Angel, | Appointment | | 2014 | | CARDIOLOGY [address] | CLINICAL PSYCHOLOGY PROFESSOR [address] | | | | | [place], | [place] [facility], [place] | | | | | [place] [address] | [address] | | | | | [phone] | | | +--------+ + + + [...] n 06-12-15@800w/kailey and @830w/gaby. Patient is from [place]. Therefore he might prefer one in the afternoon elephone Encounter - Nereida Patterson ra - 05/10/2015 2:54 PM PDTCalled patient to re-schedule his appointment to add a d evice check with Kailey. I found one on 06-12-15@800w/kailey and @830w/gaby. Patient is from [place]. Therefore he might prefer one in the [...] | | | | | | [place] [address] | | | | | | [phone] | | | | | | | | +--------+ + + + + documented as of this encounter Visit Diagnoses Not on filedocumented in this encounter
--- OUTSIDE RECORDS SUMMARY | ~2020-06-03 | XMS | Encounter Summary ---
Demographics + + + | Address | [address] [place] [address] [address] | | | [place] [address] | + + + | Home Phone | | + + + | Preferred Language | Unknown | + + + | Marital Status | | + + + | Mosque Affiliation | Unknown | + + + [...] [place] | | | | | [address] | | + + + + + [...] | | Bradycardia | | | | [place] [facility] | | | | | | and Healing, | | | | | | Building [address] | | | | | | [place], [place] | | | | | | [address] | | | | | | [phone] | | | +--------+------+ + + + [...] Way Lab) | [facility] | | [facility] [place] [address] | REGIONAL | | [place] [address] | LABORATORY | + + + + + + + + | Performing | Address | City/State/Zipcode | Phone Number | | Organization | | | | + + + + + | [facility] | [address] | [place] [address] | | | LABORATORY | | | [...] RLB ([address] [facility]) | | | [facility] [place] [address] | | | [place] [address] | | + + + + + + + + | Performing | Address | City/State/Zipcode | Phone Number | | Organization | | | | + + + + + | [facility] | [address] | [place] [address] | | | LABORATORY | | | [...] | | | DEPARTMENT | | | [place] | | | OF | | | [...] | + + + + + | [facility] | [address] | [place] [address] | | | PATHOLOGY | [address] | | | + + + + + documented in this encounter Visit Diagnoses + + | Diagnosis | + + | Chest pain Chest pain, unspecified | + + | Bradycardia Other specified cardiac dysrhythmias | + + documented in this encounter"
--- OUTSIDE RECORDS SUMMARY | ~2020-06-03 | XMS | Encounter Summary ---
Demographics + + + | Address | [address] | | | [place] [address] | + + + | Home Phone [...] Providers + +------+ + | Care Photo Printer Name | Role | Phone | [...] Office | [facility] | DekalbJacek, | Diplopia (Primary | | 2012 | Visit | [facility] | [address] | Dx); Symptomatic | | | | [address] | [place] | PVCs; Hypertension | | | | [place], [place] | [address] | | | | | [address] | | | | | | [phone] | | | +--------+---------+ + + + [...] Double vision will affect your ability to lav crewman distance. This means it will be harder [...] or, difficulty with vision, speech or walking 0314-1097 [facility], [address] [place] [address], [place] [address]. All rights reserve d. This information is [...] from his pain clinic visit in the [facility] on Wednesday or he developed [...] Wednesday with me, he thinks maybe h aster overslept. No fever, eye pain, vision loss, [...] tablet by mouth Daily. 30 tablet 6 Purchase-3 Fatty Acids (SALMON OIL-1000 PO) CAPS, one [...] W | | | | | | [address] [place], | | | | | | [place] [address] | | | | | | [phone] | | | | | | | [...] + | [facility] | [address] | [place], [place] | [phone] | | [facility] | | [address] | | | - LABORATORY | | | | + + + + + | [facility] | [address] | [place], [place] | | | [facility] | | [address] [place] [address] | | | - LABORATORY | | [...] + | [facility] | [address] | [place] | [phone] | | [facility] | | [address] | | | - LABORATORY | | | | + + + + + | [facility] | [address] | [place] | | | [facility] | | [address] | | | - LABORATORY | [...] | | | | performed on the Ajvid | uIU/mL | [facility] | | | | [facility] | | MEDICAL | | | [...] + | [facility] | [address] | [place] | [phone] | | [facility] | | [address] | | | - LABORATORY | | | | + + + + + | [facility] | [address] | [place], [place] | | | [facility] | | [address], [facility] | | | - [...]
--- OUTSIDE RECORDS SUMMARY | ~2020-06-03 | XMS | Encounter Summary ---
Demographics + + + | Address | [address] | | | [place] [address] | + + + | Home Phone [...] Team Providers + +------+ + | Care Dude Ranch Manager Name | Role | Phone | [...] visit | CARDIOLOGY [address] | [address] | reprogramming/check | | | | [place], | [place], | DO NOT DELETE | | | | [place] [address] | [place] [address] | (Primary Dx); | | | | [phone] | [phone] | Sinoatrial node | | | | [...] | | | | | | [place] [address] | | | | | | [phone] | | | | | | | [...]
--- OUTSIDE RECORDS SUMMARY | ~2020-06-03 | XMS | Encounter Summary ---
Demographics + + + | Address | [address] | | | [place] [address] | + + + | Home Phone [...] Team Providers + +------+ + | Care Multimedia Assistant Name | Role | Phone | [...] | Aneurysmal | [place], | [address] [place] | | | | | dilatation | PARISA Solis | [place], | | | | | (HCC) | [address] | [place] | | | | | Procedures | [place] | [address] | | | | | ECHO | [place], | Phone: | | | | | Complete | [place] | [phone] | | | | | | [address] | Fax: | | | | | | Phone: | [phone] | | | | | | [phone] | | | | | | | Fax: | | | | | | | [phone] | | +--------+--------+ + + + + [...] | dilatation (HCC) | | | | [place], | [place], | (Primary Dx) | | | | [place] [address] | [place] [address] | | | | | [phone] | [phone] | | | | | | | [...] | | | | | | [place], | | | | | | [place] [address] | | | | | | [phone] | | | | | | | [...] Room Number SARAH Patient | | | [id number] Date of Study 11/16/2017 Number | | | Visit Number [id number] | | | Referring Physician GURJIT TROY Number | | | ELIZABETHANGELIA SOLIS Date | | | of 1960 Party Planner ROMAINE | | | MARISSA TIPTON Age 57 year(s) Interpreting | | | GURJIT TROY | | | Cooler Room Worker SYDNI CAGLE, | | | | | | Gender Male Nurse | | | Stress Audiology Director Procedure Type of | | | Study [...] | | | EF | | | Zoehotfaj26% Left Ventricle Diastolic Dimension: 5.12 cm | [...] Volume: 46.33 ml | | | EF Vnqyxvxyh44% | | | | | | Left [...] BARRY Room Number SARAH | | Patient [id number] Date of Study 11/16/2017 Number Visit Number | | [id number] Referring Physician GURJIT TROY | | Number RHBROCKARD IRMA Date of | | 1960 Party Planner ROMAINE TIPTON RDCS Age 57 year(s) | | Interpreting GURJIT TROY Cooler Room Worker | | SYDNI CAGLE MD | | [...] [place] Volume: 46.33 ml | | EF Zodtvtlhl50% Left Ventricle Diastolic Dimension: 5.12 cm Systolic [...] [place] Volume: 46.33 ml | | EF Jhhjhohtb44% | | | | Left Ventricle | [...]
--- OUTSIDE RECORDS SUMMARY | ~2020-06-03 | XMS | Encounter Summary ---
Demographics + + + | Address | [address] | | | [place] [address] | + + + | Home Phone [...] Providers + +------+ + | Care Spinner Iron Name | Role | Phone | + [...] + + | 06/18/ | Emergency | [facility] | Dom Graham, | Cervical pain (neck) | | 2013 | | MED CTR EMERGENCY | MD [address] | (Primary Dx); | | | | CENTER [address] | [place] | Paresthesia and pain | | | | [place] | [address] | of both upper | | | | [address] | | extremities | | | | [phone] | | | +--------+ + + + [...] cannot be sent through Care Everywhere.PARAESTHESIAS ( ICELANDIC)NECK SPRAIN/STRAIN (ICELANDIC)documented in this encounter Medications at Time of [...] + + + +---------+ + + | [place]-3 Fatty | CAPS, one capsule by | [...] TABLET Take 1 tablet by mouth Daily. [facility] NATURAL PRODUCTS (OSTEO BI-FLEX/5-LOXIN ADVANCED PO) Take [...] [place] Check glucose as needed for hypoglycemia PANTOPRAZOLE [...] Bilateral external ears normal, Oral mucosa moist, highway maintenance technician ior pharynx no exudates, Nose normal. Neck-supple, [...] Amanda DO. In 1 week. Contact information: [address] [place] [address] New Prescriptions METHYLPREDNISOLONE (MEDROL DOSEPAK) 4 MG TABLET Follow package directions. Dom Graham MD 06/18/14 1722 document ed in this encounter Miscellaneous Notes Plan of Care - IRINA MAXWELL WANY - 06/21/2014 12:00 AM PDT D Triage [...] | | | | | | [place] [address] | | | | | | [phone] | | | | | | | [...] + | MISCELLANEOUS LAB | | | [phone] | + +---------+ + + | MISCELANIOUS LAB | | | [phone] | + +---------+ + + documented in this encounter Visit Diagnoses + + | Diagnosis | + + | Cervical pain (neck) - Primary Cervicalgia | + + | Paresthesia and pain of both upper extremities Disturbance of skin sensation | + + documented in this encounter
--- OUTSIDE RECORDS SUMMARY | ~2020-06-03 | XMS | Encounter Summary ---
Demographics + + + | Address | [address] | | | [place] [address] | + + + | Home Phone [...] Team Providers + +------+ + | Care Church Business Administrator Name | Role | Phone | [...] + | 02/16/ | Telephone | [facility] [place] | [place], | Other (concerned | | 2012 | | CARDIOLOGY [address] | PARISA [place] [address] | about palpitations) | | | | [place], | [place], | | | | | [place] [address] | [place] [address] | | | | | [phone] | [phone] | | | | | | | [...] | | | | | | [place] [address] | | | | | | [phone] | | | | | | | | +--------+ + + + + documented as of this encounter Visit Diagnoses Not on filedocumented in this encounter"
--- OUTSIDE RECORDS SUMMARY | ~2020-06-03 | XMS | Encounter Summary ---
Demographics + + + | Address | [address] | | | [place] [address] | + + + | Home Phone [...] Providers + +------+ + | Care Order Planner Name | Role | Phone | [...] + + | 06/25/ | Office | [facility] | [place], | SINUS BRADYCARDIA | | 2013 | Visit | CARDIOLOGY [address] | PARISA [place] [address] | (Primary Dx); | | | | [place], | [place], | Symptomatic PVCs; | | | | [place] [address] | [place] [address] | Coronary artery | | | | [phone] | [phone] | disease; | | | | | [...] time, he was admitted over observation at [facility] for a chest pain. Aortogram revealed [...] for Chest pain. 25 tablet 12 [place]-3 Fatty Acids (SALMON OIL-1000 PO) CAPS, one [...] HGBEX 16.1 01/25/2014 I reviewed records from [facility] for emergency department visit o [...] by Dr. Gambino at [facility] on 01/30/2013. Patient had spontaneous PVCs [...] to go back in 3 days to [place] for an attempt of ablation under general [...] made to ensure accuracy; however, inadvertent computerized seal delivery vehicle officer errors may be pre sent. Electronically signed [...] | | | | | | [place] [address] | | | | | | [phone] | | | | | | | | +--------+ + + + + documented as of this encounter Visit Diagnoses + + | Diagnosis | + + | SINUS BRADYCARDIA - Primary Sinoatrial node dysfunction | + + | Symptomatic PVCs Other premature beats | + + | Coronary artery disease Coronary atherosclerosis of unspecified type of vessel, | | tatitlek or graft | + + | Hypertension Unspecified essential hypertension | + + | Syncope Syncope and collapse | + + | Hyperlipidemia Other and unspecified hyperlipidemia | + + documented in this encounter
--- OUTSIDE RECORDS SUMMARY | ~2020-06-03 | XMS | Encounter Summary ---
Demographics + + + | Address | [address] | | | [place] [address] | + + + | Home Phone [...] Providers + +------+ + | Care Construction Job Cost Estimator Name | Role | Phone | + +------+ + PCP | Unavailable | + +------+ + Encounter Details +--------+ + + + + | Date | Type | Department | Care Team | Description | +--------+ + + + + | 01/20/ | [facility] | [facility] | Geri Angel, | | | 2009 | Encounter | MED CTR GENERIC OP | PUBLICITY PERSON [address] | | | | | CONV DEPT [address] | [place] | | | | | [place], | [address] | | | | | [place] [address] | | | | | | [phone] | | | +--------+ + + + [...] | | | | | | [place] [address] | | | | | | [phone] | | | | | | | | +--------+ + + + + documented as of this encounter Visit Diagnoses Not on filedocumented in this encounter"
--- OUTSIDE RECORDS SUMMARY | ~2020-06-03 | XMS | Encounter Summary ---
Demographics + + + | Address | [address] | | | [place] [address] | + + + | Home Phone [...] Team Providers + +------+ + | Care Wax Room Supervisor Name | Role | Phone [...] [address] | | | | | [address] | [place] [address] | | | | | [phone] | [phone] | | | | | | | [...] | | | | | | [place] [address] | | | | | | [phone] | | | | | | | [...]
--- OUTSIDE RECORDS SUMMARY | ~2020-06-03 | XMS | Encounter Summary ---
Demographics + + + | Address | [address] [place] [address] [address] | | | [place] [address] | + + + | Home Phone | | + + + | Preferred Language | Unknown | + + + | Marital Status | | + + + | Roman Catholic Affiliation | Unknown | + + [...] [place] | | | | | [address] | | + + + + + Care Team Providers + +------+ + | Care Wildlife Conservation Officer Name | Role | Phone | [...] | | | | l weight | [place], [place] | | | | | | loss | [address] | | | | | | Procedures | Phone: | | | | | | CONSULT TO | [phone] | | | | | | NON - [facility] | Fax: | | | | | | PROVIDER | [phone] | | | | | | CONSULT [...] | | 2019 | | Center at [facility] [address] | MD [address] | change location of | | | | [address] | [place], [place] | referral ) | | | | for Health and | [address] | | | | | [place] [address] | [phone] | | | | | [place], [place] | | | | | | [address] | | | | | | [phone] | | | +--------+ + + + [...]
--- OUTSIDE RECORDS SUMMARY | ~2020-06-03 | XMS | Encounter Summary ---
Demographics + + + | Address | [address] [place] [address] [address] | | | [place] [address] | + + + | Home Phone [...] [place] | | | | | [address] | | + + + + + Care Team Providers + +------+ + | Care Reverse Engineer Name | Role | Phone | [...] at [facility] [address] | MD [address] | | | | | [address] [place] | [place], [place] | | | | | for Health and | [address] | | | | | [facility] 2 | [phone] | | | | | [place], [place] | | | | | | [address] | | | | | | [phone] | | | +--------+ + + + [...]
--- OUTSIDE RECORDS SUMMARY | ~2020-06-03 | XMS | Encounter Summary ---
Demographics + + + | Address | [address] | | | [place] [address] | + + + | Home Phone [...] Providers + +------+ + | Care Food Chemist Name | Role | Phone | + +------+ + PCP | Unavailable | + +------+ + Encounter Details +--------+ + + + + | Date | Type | Department | Care Team | Description | +--------+ + + + + | 02/01/ | [facility] | [facility] | Evan Gandara MD | | | 2008 - | Encounter | MED CTR MED ONC | [address] [facility] | | | | | [address] [place] | [place] | | | 02/06/ | | [place] [address] | [address] | | | 2008 | | [phone] | | | +--------+ + + + [...] | | | | | | [place] [address] | | | | | | [phone] | | | | | | | | +--------+ + + + + documented as of this encounter Visit Diagnoses Not on filedocumented in this encounter"
--- OUTSIDE RECORDS SUMMARY | ~2020-06-03 | XMS | Encounter Summary ---
Demographics + + + | Address | [address] | | | [place] [address] | + + + | Home Phone [...] Providers + +------+ + | Care Crop Ranch Hand Name | Role | Phone | [...] [place] | | | | | [address] | [address] | | | | | [phone] | | | +--------+ + + + [...] 1:53 PM Irasema Uriarte notified . elephone [facility] er - Kira Montoya RN - 04/10/2019 [...] otherwise, he'll see Dr Uriarte morning in [facility] as scheduled. Electronical ly signed by Kira [...] FROM DR. FIGUEROA NURSE. PLEASE ADVISE AT [phone].Electronically sign ed by Renetta Dewitt at 04/10/2019 [...] | | | | | | [place] [address] | | | | | | [phone] | | | | | | | | +--------+ + + + + documented as of this encounter Visit Diagnoses Not on filedocumented in this encounter"
--- OUTSIDE RECORDS SUMMARY | ~2020-06-03 | XMS | Encounter Summary ---
Demographics + + + | Address | [address] | | | [place] [address] | + + + | Home Phone [...] Team Providers + +------+ + | Care Franchise Business Consultant Name | Role | Phone | [...] + + | 03/07/ | Office | [facility] | [place], | SINUS BRADYCARDIA | | 2013 | Visit | CARDIOLOGY [address] | [address] | (Primary Dx); | | | | [place], | [place], | Syncope; Symptomatic | | | | [place] [id number] | [place] [id number] | PVCs; Pacemaker - | | | | [phone] | [phone] | Medtronic - [id number] | | | [...] Sanchez Date: March 07, 2014 : 1960 Credit And Collections Representative: Kailey Pruitt RN Device Doctor Of Podiatry:Medtronic Sense (mV) Impedance (?) Capture (V) Capture (ms) A Lead >5.60 402 1.500 0.09 RV Lead >31.36 522 2.00 0.09 LV Lead Battery Impedance (?): 528 Battery Voltage (V): 2.79 TN Interval (ms): 147 AR Interval (ms): 217 VA Conduction: Mode Switch Events: 0 % of time: 0 -THROUGH OPERATOR: <0.1% AP-THROUGH OPERATOR: 0.1% -VS: 23.8% AP-VS: 76.1% THROUGH OPERATOR: Magnetic Rate: 85 LINDA: 65 LEAH: [...] Pruitt RN 03/07/2014 12:00 Janeen Mccollum AR FURNACE DOOR TENDER - 03/07/2014 11:07 AM PDT PATIENT NAME: [...] headaches. He paulino d been seen at [facility] a couple times with chest pain [...] needed for Chest pain. 25 tablet 12 [place]-3 Fatty Acids (SALMON OIL-1000 PO) CAPS, one [...] Sanchez Date: March 07, 2014 : 1960 Credit And Collections Representative: Kailey Pruitt RN Device Doctor Of Podiatry:TyraTechtronic Sense (mV) Impedance (?) Capture (V) Capture (ms) A Lead >5.60 402 1.500 0.09 RV Lead >31.36 522 2.00 0.09 LV Lead Battery Impedance (?): 528 Battery Voltage (V): 2.79 TN Interval (ms): 147 AR Interval (ms): 217 VA Conduction: Mode Switch Events: 0 % of time: 0 -THROUGH OPERATOR: <0.1% AP-THROUGH OPERATOR: 0.1% -VS: 23.8% AP-VS: 76.1% THROUGH OPERATOR: Magnetic Rate: 85 LINDA: 65 LEAH: [...] completely be ruled out. [facility] 12/25/13, shows noncritical coronary artery [...] pain. He is in class II of [place] Heart Association functional class . There are [...] ventricular arrhythmia performed by Dr. Gambino at [facility] on 01/30/2013. Patient had spontaneous [...] to go back in 3 days to [place] for an attempt of ablation under general [...] palpitations.. He is in class II of [place] Heart Association functional class. There are no [...] [facility]. Lightheadedness and dizziness/ presyncope: [...] of chest and abdomen by August 2014 IJaneen ARNP, saw this patient under the direct supervision of Daljit Singletary MD Portions of this report were transcribed using voice recognition software. Every effort wa s made to ensure accuracy; however, inadvertent computerized coper hand errors may be pre sent. Electronically signed by: PARISA Russell 03/07/2014 11:07 documented in this encounter Procedure Notes Kailey Pruitt RN - 03/07/2014 12:01 PM PDTAssociated Order(s): DEVICE INTERROGATIONProcedu re(s): DEVICE INTERROGATIONPre-Procedure Diagnose(s): Sinoatrial node dysfunction (HCC); Syn cope; Symptomatic PVCs; Presence of permanent cardiac pacemaker DEVICE INTERROGATION Name: Moe Sanchez Date: March 07, 2014 : 1960 Credit And Collections Representative: Kailey Pruitt RN Device Doctor Of Podiatry:TyraTechtronic Sense (mV) Impedance (?) Capture (V) Capture (ms) A Lead >5.60 402 1.500 0.09 RV Lead >31.36 522 2.00 0.09 LV Lead Battery Impedance (?): 528 Battery Voltage (V): 2.79 TN Interval (ms): 147 AR Interval (ms): 217 VA Conduction: Mode Switch Events: 0 % of time: 0 -THROUGH OPERATOR: <0.1% AP-THROUGH OPERATOR: 0.1% -VS: 23.8% AP-VS: 76.1% THROUGH OPERATOR: Magnetic Rate: 85 LINDA: 65 LEAH: [...] signed by: Kailey Pruitt RN 03/07/2014 12:00 documented in this enco unter Plan of [...] | | | | | | [place] [id number] | | | | | | [phone] | | | | | | | [...] 07, 2014 : | | | 1960 Credit And Collections Representative: Kailey Pruitt RN Device | | | Doctor Of Podiatry:Net Orange Sense (mV) Impedance (?) Capture (V) | | | Capture (ms) A Lead >5.60 402 1.500 0.09 RV Lead >31.36 522 2.00 | | | 0.09 LV Lead Battery Impedance (?): 528 Battery Voltage (V): | | | 2.79 TN Interval (ms): 147 AR Interval (ms): 217 VA Conduction: | | | Mode Switch Events: 0 % of time: 0 -THROUGH OPERATOR: <0.1% AP-THROUGH OPERATOR: 0.1% -VS: | | | 23.8% AP-VS: 76.1% THROUGH OPERATOR: Magnetic Rate: 85 LINDA: 65 LEAH: [...] | | Date: March 07, 2014DOB: 1960 Credit And Collections Representative: Kailey Pruitt RN Device | | Doctor Of Podiatry:Net Orange Sense (mV) Impedance (?) Capture (V) Capture (ms) A Lead >5.60 | | 402 1.500 0.09 RV Lead >31.36 522 2.00 0.09 LV Lead Battery Impedance (?): 528 | | Battery Voltage (V): 2.79 TN Interval (ms): 147 AR Interval (ms): 217 VA Conduction: | | Mode Switch Events: 0 % of time: 0 -THROUGH OPERATOR: <0.1% AP-THROUGH OPERATOR: 0.1% -VS: 23.8% AP-VS: 76.1% | | THROUGH OPERATOR: Magnetic Rate: 85 LINDA: 65 LEAH: [...] in 6 months. Electronica lly signed by: aKiley Pruitt RN 03/07/2014 12:00 | + + [...]
--- OUTSIDE RECORDS SUMMARY | ~2020-06-03 | XMS | Encounter Summary ---
Demographics + + + | Address | [address] | | | [place] [address] | + + + | Home Phone [...] Team Providers + +------+ + | Care Bituminous Distributor Operator Name | Role | Phone | + +------+ + PCP | Unavailable | + +------+ + Encounter Details +--------+ + + + + | Date | Type | Department | Care Team | Description | +--------+ + + + + | 03/08/ | [facility] | [facility] | Emmanuel Daniel MD | | | 2006 | Encounter | MED CTR GENERIC OP | [address] | | | | | CONV DEPT [address] | [address] | | | | | [place], | [address] | | | | | [place] [address] | | | | | | [phone] | | | +--------+ + + + [...] | | | | | | [place] [address] | | | | | | [phone] | | | | | | | | +--------+ + + + + documented as of this encounter Visit Diagnoses Not on filedocumented in this encounter"
--- OUTSIDE RECORDS SUMMARY | ~2020-06-03 | XMS | Encounter Summary ---
Demographics + + + | Address | [address] | | | [place] [address] | + + + | Home Phone [...] Team Providers + +------+ + | Care Loom Fixer Helper Name | Role | Phone | [...] [address] | | | | | [place], | [place], | | | | | [place] [address] | [place] [address] | | | | | [phone] | [phone] | | | | | | | [...] | | | | | | [place] [address] | | | | | | [phone] | | | | | | | [...]
--- OUTSIDE RECORDS SUMMARY | ~2020-06-03 | XMS | Encounter Summary ---
Demographics + + + | Address | [address] [place] [address] [address] | | | [place] [address] | + + + | Home Phone [...] [place] | | | | | [address] | | + + + + + Care Team Providers + +------+ + | Care Insect Control Aide Name | Role | Phone | [...] | | | | [address] | [place], [place] | | | | | [facility] and | [address] | | | | | [facility] | [phone] | | | | | [place], [place] | | | | | | [address] | | | | | | [phone] | | | +--------+ + + + [...]
--- OUTSIDE RECORDS SUMMARY | ~2020-06-03 | XMS | Encounter Summary ---
Demographics + + + | Address | [address] | | | [place] [address] | + + + | Home Phone [...] Team Providers + +------+ + | Care Telecom Field Technician Name | Role | Phone | [...] CTR CASE | RN | (referral from [facility]) | | | | MANAGEMENT [address] | | | | | | [place], | | | | | | [place] [address] | | | | | | [phone] | | | +--------+ + + + [...] PM PDTOutpatient Case Managem ent: Referral from [facility] This gentleman is scheduled for an outpatient [...] we could suggest to an d from [place]. Can you look into this and suggest any transportation options? I was not able to talk to Amilcar. I talked to his support person Geraldine Espino (she will be with Amilcar for this procedure.. Two options: Free transportation service via [place] [employer]: [phone]. They have transportat ion times available that [...] | | | | | | [place] [address] | | | | | | [phone] | | | | | | | | +--------+ + + + + documented as of this encounter Visit Diagnoses Not on filedocumented in this encounter"
--- OUTSIDE RECORDS SUMMARY | ~2020-06-03 | XMS | Encounter Summary ---
Demographics + + + | Address | [address] | | | [place] [address] | + + + | Home Phone [...] Providers + +------+ + | Care Manager Cath Lab Name | Role | Phone | + [...] W | reprogramming/check | | | | [place], | [address] [place] | DO NOT DELETE | | | | [place] [address] | [place] [address] | (Primary Dx); | | | | [phone] | [phone] | Pacemaker - | | | | [...] W | | | | | | [place], | | | | | | [place] [address] | | | | | | [phone] | | | | | | | [...]
--- OUTSIDE RECORDS SUMMARY | ~2020-06-03 | XMS | Encounter Summary ---
Demographics + + + | Address | [address] | | | [place] [address] | + + + | Home Phone [...] Providers + +------+ + | Care Table Assembler Metal Name | Role | Phone | [...] | | | | | | [place] [address] | | | | | | [phone] | | | +--------+ + + + [...] | | | | | | [place] [address] | | | | | | [phone] | | | | | | | | +--------+ + + + + documented as of this encounter Visit Diagnoses Not on filedocumented in this encounter"
--- OUTSIDE RECORDS SUMMARY | ~2020-06-03 | XMS | Encounter Summary ---
Demographics + + + | Address | [address] | | | [place] [address] | + + + | Home Phone [...] Team Providers + +------+ + | Care Channeler Name | Role | Phone | + [...] + + | 02/01/ | Telephone | [facility] [place] | Silvia, | Other (unable to | | 2013 | | CARDIOLOGY [address] | [address] | take the isosorbide) | | | | [place], | [place], | | | | | [place] [address] | [place] [address] | | | | | [phone] | [phone] | | | | | | | [...] | | | | | | [place] [address] | | | | | | [phone] | | | | | | | | +--------+ + + + + documented as of this encounter Visit Diagnoses + + | Diagnosis | + + | Coronary artery disease - Primary Coronary atherosclerosis of unspecified type of | | vessel, false pass or graft | + + | Hypertension Unspecified essential hypertension | + + | Hyperlipidemia Other and unspecified hyperlipidemia | + + documented in this encounter"
--- OUTSIDE RECORDS SUMMARY | ~2020-06-03 | XMS | Encounter Summary ---
Demographics + + + | Address | [address] [place] [address] [address] | | | [place] [address] | + + + | Home Phone | | + + + | Preferred Language | Unknown | + + + | Marital Status | | + + + | Confucianism Affiliation | Unknown | + + + [...] [place] | | | | | [address] | | + + + + + Care Team Providers + +------+ + | Care Technology Specialist Name | Role | Phone | [...] 2019 | | Center at [facility] [address] | Gastroenterology | Gastroenterology | | | | [address] [facility] | | | | | | for Health and | | | | | | [address], [address] | | | | | | [place], [place] | | | | | | [address] | | | | | | [phone] | | | +--------+ + + + [...]
--- OUTSIDE RECORDS SUMMARY | ~2020-06-03 | XMS | Encounter Summary ---
Demographics + + + | Address | [address] | | | [place] [address] | + + + | Home Phone [...] Providers + +------+ + | Care Spanish Teacher Name | Role | Phone | [...] [address] | | | | | | [place], [place] | (Fax) | | | | | [address] | | | | | | [phone] | | | +--------+ + + + [...] | | | | | | [place] [address] | | | | | | [phone] | | | | | | | | +--------+ + + + + documented as of this encounter Visit Diagnoses Not on filedocumented in this encounter"
--- OUTSIDE RECORDS SUMMARY | ~2020-06-03 | XMS | Encounter Summary ---
Demographics + + + | Address | [address] | | | [place] [address] | + + + | Home Phone [...] Team Providers + +------+ + | Care Enterprise Manager Name | Role | Phone | [...] | | | | CENTER [address] | [address] [place] | | | | | [place], [place] | [place] [address] | | | | | [address] | [phone] | | | | | [phone] | | | +--------+ + + + [...] + + + +---------+ + + | Murphy-3 Fatty | CAPS, one capsule by | [...] might be differe nt from the original. [facility] Moe Sanchez Emergency Department Encounter Note [address] [place] [address] PCP:Kirk French MD [phone] DIAGNOSIS: 1. Bronchitis CHIEF COMPLAINT: Chief Complaint Patient presents with Cough Mode of Arrival: walk-in ED Room: ED04 [facility] Moe Sanchez is a 57 y.o. [...] performed by Dr. Gambino at [facility] on 01/30/2013. Patient had spontaneous [...] to go back in 3 days to [place] for an attempt of ablation under [...] Left Heart Cath, 02/29/2012, LVEF is 65%, [facility] Myocardial Gated Stress Test, 05/25/2009, EF 53 % during rest and 52% during stress. [place]. Persantine Sestamibi Stress Test, 06/14/2008, LVEF is 60%, [facility] 12/25/13, shows noncritical coronary artery [...] SERIAL# DATE IMPLANTED GENERATOR Medtronic DDD ADDR01 [id number] 06/14/09 RV LEAD Medtronic Active Bipolar CapSureFix 4076 [id number] 06/14/09 A LEAD Medtronic Active Bipolar CapSurFix 4076 [id number] 06/14/09 Depression with anxiety 12/24/2017 Priority: Medium Coronary artery disease involving comanche coronary artery of comanche heart without angina pectoris 12/21/2013 Priority: Medium [...] tissue attenuation cannot completely be ruled out. [facility] 12/25/13, shows non critical [...] Last Updated: 12/24/2017 Lower back injury (From [facility]) 1981 1985 Hyperlipidemia, mixed Priority: Low Diarrhea [...] 07/26/[address] Angiogram chest w/constrast 05/26/14 [facility] Hypoglycemia 09/20/2012 Bipolar disorder (HCC) [...] Procedure: COLONOSCOPY; Surgeon: Emmanuel Daniel MD; Location: [facility] HARDWARE REMOVAL KNEE SURGERY 2003 meniscus-right LAMINECTOMY 1991 L3-4 LUMBAR DISCECTOMY 1991 L3-4 LUMBAR FUSION 01/2011 6 spine fusions neck fusion 08/10/2012 [place], [place] NECK SURGERY PACEMAKER PLACEMENT 06/14/09 SHOULDER SURGERY 03/22/13 SINUS SURGERY 1997 SPINAL FUSION STOMACH SURGERY UPPER GASTROINTESTINAL ENDOSCOPY N/A 12/24/2017 Procedure: EGD; Surgeon: Emmanuel Daniel MD; Location: [facility] VASECTOMY CURRENT MEDICATIONS [...] take 1 tablet by mouth every evening [facility] NATURAL [employer] (OSTEO BI-FLEX/5-LOXIN [...] ONE TOUCH DELICA LANCETS [facility] Check glucose as needed [...] were reviewed along with EMS notes and long-term record s if applicable. (See chart for [...] Specialty: Internal Medicine Contact information: Eva DOMINGUEZ [address] [address] New Prescriptions AZITHROMYCIN (ZITHROMAX) 250 MG TABLET Take 2 tablets by mouth daily x 1 day, then take 1 tablet by mouth daily x 4 days. GUAIFENESIN (ROBITUSSIN) 100 MG/5ML LIQUID Take 10-20 mLs by mouth every 4 hours as nee ded for Cough. Portions of this chart were created with [employer] voice recognition software. Inadvertent so und alike substitutions may be present and are unintentional Martell Castillo MD 02/01/18 7136 Geri Barnes, Student V BELT MOLD ASSEMBLER AND CURER - 02/01/2018 1:48 PM PDTPt complains that he has bronchitis type symptoms x 3 d ays with cough and productive sputumElectronically signed by Geri Olivo, Student V BELT MOLD ASSEMBLER AND CURER at 1:49 PM PDTdocumented in this encounter [...] | | | | | | [place] [address] | | | | | | [phone] | | | | | | | [...] W?MRN: | | | | | | [id number] | | | [id number] | | | his | | | [...] | | | ent/60 | | | [id number] | | | [id number] | | | [...] | | | St. | | | [place] | | | y H. | | [...] | | | St. | | | [place] | | | y H. | | [...] | | | St. | | | [place] | | | y H. | | [...] | | | St. | | | [place] | | | y H. | | [...] | | | St. | | | [place] | | | y | | | [...] | | | ext. | | | [phone] | | | or go | | [...] ST. | [address] | [place], [place] | [phone] | | [facility] | | [address] | | | - LABORATORY | | [...] [address] | [place] | [phone] | | [facility] | | [address] | | | - LABORATORY | | [...] 10 | 7 - 18 mg/dL | [facility] | | | | | | [facility] | | | | | | MEDICAL | | | | | | CENTER - | | | | | | LABORATORY | | + + + + + + | Creatinine | 0.82 | 0.60 - 1.30 | [facility] | | | | | mg/dL | [facility] | | | | | | MEDICAL | | | | | | CENTER - | | | | | | LABORATORY | | + + + + + + | eGFR if not | >60Comment: GLOMERULAR | >=60 | [facility] | | | | FILTRATION | mL/min/1.73m2 | [facility] | | | [place]SH[place] | RATE,ESTIMATED | | MEDICAL | | | | mL/min/1.84h8Llyd than | | CENTER - | | [...] + | [facility] | [address] | [place] | [phone] | | [facility] | | [address] | | | - LABORATORY | | [...] [address] | [place] | [phone] | | [facility] | | [address] | | | - LABORATORY | | | | + + + + + documented in this encounter Visit Diagnoses + + | Diagnosis | + + | Bronchitis - Primary Bronchitis, not specified as acute or chronic | + + documented in this encounter
--- OUTSIDE RECORDS SUMMARY | ~2020-06-03 | XMS | Encounter Summary ---
Demographics + + + | Address | [address] | | | [place] [address] | + + + | Home Phone [...] Team Providers + +------+ + | Care Index Clerk Name | Role | Phone | + +------+ + | Michael Amanda DO | PCP | | + +------+ + Reason for Visit +--------+--------+ + | Reason | Onset | Comments | | | Date | | +--------+--------+ + | Other | 03/08/ | Pacemaker card | | | 2013 | | +--------+--------+ + Encounter Details +--------+ + + + + | Date | Type | Department | Care Team | Description | +--------+ + + + + | 03/08/ | Telephone | [facility] | SunshinecherelleDaljit, | Other (Pacemaker | | 2013 | | CARDIOLOGY [address] | MD [address] | card ) | | | | [employer], | [employer] [employer], | | | | | [place] [address] | [place] [address] | | | | | [phone] | [phone] | | | | | | | [...] Telephone Encounter - Kailey Pruitt RN - 03/08/2014 10:00 AM PDTPatient was seen on 4 and requested a pacemaker card during his visit for his upcoming international travel. [employer]anti led Medtronic registration and they will send him one today, he should have it within a week . Left message for patient to advise. Electronically signed by: Kailey Pruitt RN 03/08/2014 1 0:00 documented in this encounter Plan of Treatment [...] [place] | | | | | | [place] [address] | | | | | | [phone] | | | | | | | | +--------+ + + + + documented as of this encounter Visit Diagnoses Not on filedocumented in this encounter"
--- OUTSIDE RECORDS SUMMARY | ~2020-06-03 | XMS | Encounter Summary ---
Demographics + + + | Address | [address] | | | [place] [address] | + + + | Home Phone [...] Team Providers + +------+ + | Care Malted Milk Mixer Name | Role | Phone | [...] | disease involving | | | | [place], | [place], | [place] coronary | | | | [place] [address] | [place] [address] | artery of ewiiaapaayp | | | | [phone] | [phone] | heart without angina | | | [...] | | | | | | [place] [address] | | | | | | [phone] | | | | | | | [...] MD | | | | | | ([id number]) on 06/23/2016 | | | | | [...] + + | Coronary artery disease involving ewiiaapaayp coronary artery of [place]ay[place] heart without | | angina pectoris - Primary | + + | Essential hypertension with goal blood pressure less than 130/80 | + + documented in this encounter"
--- OUTSIDE RECORDS SUMMARY | ~2020-06-03 | XMS | Encounter Summary ---
Demographics + + + | Address | [address] | | | [place] [address] | + + + | Home Phone [...] + + | 06/26/ | Office | [facility] | Geri Angel, | Coronary artery | | 2015 | Visit | CARDIOLOGY [address] | SONG WRITER [address] | disease involving | | | | [place], | St [place], [place] | [place]om[place] coronary | | | | [place] [address] | [address] | artery without | | | | [phone] | | angina pectoris | | | [...] occur with exertion. He went to [facility] at the end of for his symptoms [...] it. He is planning to travel to [place] in the [place] near future for up to a month due to his ibronj-zq-mif having a significant stroke there MEDICAL, SURGICAL, [...] Preventative health care Coronary artery disease involving [place]om[place] coronary artery without angina pectoris Cannabis abuse, [...] 3rd dose, call 911 25 tablet 11 [place]-3 Fatty Acids (SALMON OIL-1000 PO) CAPS, one [...] Daily. to reduce urinary frequenc y Lot #[id number], exp 07/2016 21 capsule 0 Specialty Vitamins [...] INTERROGATION REVIEWED BY: PARISA Velazquez DEVICE IDENTIFICATION: Offset Pressman: Medtronic. Leads: Right atrium and right ventricle [...] to go back in 3 days to [place] for an attempt of ablation under general [...] dizziness. He is in class I-II of [place] Heart Association functional class. T here are [...] this chart may have been created with [employer] voice recognition software. Occasi onal wrong-word or [...] INTERROGATION REVIEWED BY: PARISA Velazquez DEVICE IDENTIFICATION: Offset Pressman: Otelic. Leads: Right atrium and right ventricle (dual [...] | | | | | | [place] [address] | | | | | | [phone] | | | | | | | [...] PARISA Velazquez DEVICE IDENTIFICATION: | | | Offset Pressman: Otelic. Leads: Right atrium and right | | [...] + + | Coronary artery disease involving diomede coronary artery without angina pectoris - | | Primary | + + | SINUS BRADYCARDIA Sinoatrial node dysfunction | + + | Essential hypertension Unspecified essential hypertension | + + | Hyperlipidemia Other and unspecified hyperlipidemia | + + | Symptomatic PVCs Other premature beats | + + documented in this encounter
--- OUTSIDE RECORDS SUMMARY | ~2020-06-03 | XMS | Encounter Summary ---
Demographics + + + | Address | [address] | | | [place] [address] | + + + | Home Phone [...] Providers + +------+ + | Care Shot Hole Shooter Name | Role | Phone | + +------+ + PCP | Unavailable | + +------+ + Encounter Details +--------+ + + + + | Date | Type | Department | Care Team | Description | +--------+ + + + + | 10/19/ | Hospital | [facility] | | | | 1992 | Encounter | MED CTR EMERGENCY | | | | | | [address] | | | | | | [place] | | | | | | [address] | | | | | | [phone] | | | +--------+ + + + [...] | | | | | | [place] [address] | | | | | | [phone] | | | | | | | | +--------+ + + + + documented as of this encounter Visit Diagnoses Not on filedocumented in this encounter"
--- OUTSIDE RECORDS SUMMARY | ~2020-06-03 | XMS | Encounter Summary ---
Demographics + + + | Address | [address] | | | [place] [address] | + + + | Home Phone [...] Providers + +------+ + | Care Access Coordinator Name | Role | Phone | + +------+ + | Kirk French MD | PCP | | + +------+ + Encounter Details +--------+ + + + + | Date | Type | Department | Care Team | Description | +--------+ + + + + | 08/29/ | [facility] | [facility] | Silvia | DVT (deep venous | | 2014 | Encounter | MED CTR ULTRASOUND | [address] [address] | thrombosis), | | | | [address] [place] | [place], | bilateral (HCC) | | | | [place], [place] | [place] [address] | | | | | [address] | [phone] | | | | | [phone] | | | +--------+ + + + [...] + + + +---------+ + + | Kidder-3 Fatty | CAPS, one capsule by | [...] | | | | | | | #[id number], exp 07/2016 | | | | | [...] | | | | | | [place] [address] | | | | | | [phone] | | | | | | | [...] HISTORY: DVT. COMPARISON: None. TECHNIQUE: Compression | [facility] | | sonography was performed from the groin through the popliteal fossa | [facility] | | in both lower extremities.. Grayscale [...] conveyed to the ordering provider, by the customer service advocate, | | | immediately following the exam. [...] to the ordering provider, by the | |customer service advocate, immediately following the exam. | | | | | |Dictated and Signed by: Emmanuel Gibbons MD | | Electronically signed: 08/29/2015 3:25 PM | + + + + + + + | Performing | Address | City/State/Zipcode | Phone Number | | Organization | | | | + + + + + | [facility] | [address] | [place] | [phone] | | [facility] | | [address] | | | - IMAGING | | | | + + + + + documented in this encounter Visit Diagnoses + + | Diagnosis | + + | DVT (deep venous thrombosis), bilateral | + + documented in this encounter"
--- OUTSIDE RECORDS SUMMARY | ~2020-06-03 | XMS | Encounter Summary ---
Demographics + + + | Address | [address] [place] [address] [address] LOZANO | | | [place] [address] | + + + | Home Phone [...] [place] | | | | | [address] | | + + + + + Care Team Providers + +------+ + | Care Caravan Park And Camping Ground Manager Name | Role | Phone | [...] | | | | | [place] | [place], [place] | | | | | | [place], [place] | [address] | | | | | | [address] | Phone: | | | | | | Phone: | [phone] | | | | | | [phone] | Fax: | | | | | | Fax: | [phone] | | | | | | [phone] | | +--------+--------+ + + + + Encounter Details +--------+---------+ + + + | Date | Type | Department | Care Team | Description | +--------+---------+ + + + | 09/28/ | Office | [facility] | Bridgette Rios, | Chronic diarrhea | | 2019 | Visit | [facility] at [facility] [address] | [address] | (Primary Dx); | | | | [address] [facility] | [place], [place] | Abdominal cramping; | | | | for Health and | [address] | Unintentional weight | | | | [facility], [facility] 2 | [phone] | loss | | | | [place], [place] | | | | | | [address] | | | | | | [phone] | | | +--------+---------+ + + + [...] some lab orders to Ne Moore 2. unit supervisor the nortryptiline and take 1 tablet [...] different fr om the original. Gastroenterology Clinic [facility] ~ Initial Consultation / New Patient [...] done through [facility] November show ed mild diverticulosis [...] of Present Illness: Here with his from [place] for second opinion regarding severe abdominal cramps, isreal rrhea and weight loss following a GI illness contracted during a trip to [place]. He reports that 2 years ago he was traveling in [place] and he had some suspicious seafood. He develo ps profound bloody diarrhea with severe abdominal pain. He was hospitalized in [facility] and w as treated with IV [...] file Gets together: Not on file Attends restoration service: Not on file Active member of [...] Plan and Recommendations: 1. [facility] in [place] for stool studies as outlined above 2. If negative and symptoms persist, recommend capsule endoscopy (this could be completed b y local infection control preventionist or he could return to [place] for this test) 3. Nortryptiline 25mg q HS with instruction to titrate to 50mg q HS after 2 weeks if tolera kevin Follow-Up: with local infection control preventionist Counseling Time: I spent a total of 35 minutes with this patient, of which greater than 50 % of the time was spent in counseling. Specific issues that were discussed included a revie w of the disease, diagnostic tools that help in our management plans for the patient's chron ic diarrhea, abdominal cramping and weight loss and goals for treatment. Bridgette Rios MD Trust Accounts Supervisor Gastroenterology documented in this e ncounter [...]
--- OUTSIDE RECORDS SUMMARY | ~2020-06-03 | XMS | Encounter Summary ---
Demographics + + + | Address | [address] | | | [place] [address] | + + + | Home Phone [...] Providers + +------+ + | Care Personal Banking Advisor Name | Role | Phone | [...] unspecified | [address] | | | | | type | [address] | [place], | | | | | Procedures | [place], | [place] | | | | | [place] | [place] [address] | [address] | | | | | Stress Test | Phone: | Phone: | | | | | (Vasodilator | [phone] | [phone] | | | | | ) CHG | Fax: | Fax: | | | | | MYOCARDIAL | [phone] | [phone] | | | | | SPECT | | | | | | | MULTIPLE | | | | | | | STUDIES DE | | | | | | | CV STRS TST | | | | | | | XERS&/OR RX | | | | | | | CONT ECG W/O | | | | | | | I&R DE | | | | | | | [...] | type | [address] | [address] | | | | | Procedures | [place] | [place], | | | | | FUP | [place] | [place] [address] | | | | | | [address] | Phone: | | | | | | Phone: | [phone] | | | | | | [phone] | Fax: | | | | | | Fax: | [phone] | | | | | | [phone] | | +--------+ + + + + + Encounter Details +--------+---------+ + + + | Date | Type | Department | Care Team | Description | +--------+---------+ + + + | 06/27/ | Office | [facility] | Sydni Singletary, | Pacemaker | | 2018 | Visit | CARDIOLOGY [address] | [address] [facility] | reprogramming/check | | | | [address] [place], | [place], | DO NOT DELETE | | | | [place] [address] | [place] [address] | (Primary Dx); Chest | | | | [phone] | [phone] | pain, unspecified | | | | [...] RN - 06/27/2018 1:30 PM FRANCY Daugherty/Bre Myolindsay Date: Check-in Time: Where to Check In: [...] being seen today [facility]. He was last seen 01/05/2018 at which time patient was to continue with present plan and medi cations. Since that time, patient has been seen at [place] emergency department on 018 for chest pain [...] 3RD DOSE, CALL 911 100 tablet 3 Lowell-3 Fatty Acids (SALMON OIL-1000 PO) CAPS, one [...] [facility]. Patient had spontaneous PVCs [...] to go back in 3 days to [place] for an attempt of ablation under general [...] PVCs. 2. Non-critical Coronary artery disease involving upper matt[place]oni coronary artery of upper [place] heart [facility] angina pectoris: A. Normal exercise [...] He is in a class I of [place] Heart Association functiona l class. There is [...] 6. Follow-up in 6 to 8 weeks. Allyson Clemente, am acting as a scribe on behalf of, and in the presence of Sydni parkinson MD. I have reviewed and edited this note. Allyson Curtis Manager Transition 06/27/2018 Sydni Clemente MD, personally performed the services described in this documentation, as scribed in my presence and it is both accurate and complete. Allyson Curtis, Med Ass t 06/27/2018 14:15 Electronically signed by: Sydni Singletary MD [facility] 06/27/2018 Portions of this chart may have been created with [employer] voice recognition software. Occasi onal wrong-word or [...] | | | | | | [place] [address] | | | | | | [phone] | | | | | | | [...] 08/25/2018 13:12 Wireless even study from | [facility] | | 07/21 until 08/22/2018. Baseline EKG [...] SYDNI | | | | | | ([id number]) on 06/27/2018 | | | | | [...]
--- OUTSIDE RECORDS SUMMARY | ~2020-06-03 | XMS | Encounter Summary ---
Demographics + + + | Address | [address] | | | [place] [address] | + + + | Home Phone [...] Providers + +------+ + | Care Scrubber System Attendant Name | Role | Phone | + +------+ + PCP | Unavailable | + +------+ + Encounter Details +--------+ + + + + | Date | Type | Department | Care Team | Description | +--------+ + + + + | 06/13/ | [facility] | [facility] | Daljit Singletary, | | | 2008 | Encounter | MED CTR LABORATORY | [address] | | | | | [address] [place] | [place], | | | | | [place] | [place] [address] | | | | | [address] | [phone] | | | | | [phone] | | | +--------+ + + + [...] | | | | | | [place] [address] | | | | | | [phone] | | | | | | | | +--------+ + + + + documented as of this encounter Visit Diagnoses Not on filedocumented in this encounter"
--- OUTSIDE RECORDS SUMMARY | ~2020-06-03 | XMS | Encounter Summary ---
Demographics + + + | Address | [address] | | | [place] [address] | + + + | Home Phone [...] Organization | [facility] | | | [...] Providers + +------+ + | Care Patient Monitor Name | Role | Phone | + [...] + | 04/11/ | Telephone | [facility] | [place], | Other (not feeling | | 2013 | | CARDIOLOGY [address] | [address] [address] | well) | | | | [place], | [place], | | | | | [place] [address] | [place] [address] | | | | | [phone] | [phone] | | | | | | | [...] 12:15 elephone Encounter - Jay Webster Cert [place] - 04/18/2014 9:28 AM PDTFormatting of this [...] | | | | | | [place] [address] | | | | | | [phone] | | | | | | | | +--------+ + + + + documented as of this encounter Visit Diagnoses Not on filedocumented in this encounter
--- OUTSIDE RECORDS SUMMARY | ~2020-06-03 | XMS | Encounter Summary ---
Demographics + + + | Address | [address] | | | [place] [address] | + + + | Home Phone [...] Providers + +------+ + | Care Registered Vascular Technologist (Rvt) Name | Role | Phone | + [...] [place] | | | | | [address] [place], [place] | [place] [address] | | | | | [address] | [phone] | | | | | [phone] | | | +--------+ + + + [...] bleeding; he states that he was at [facility] and they wanted to take him to [facility] but he declined. He requested to [...] CHILDRESS in Dr. Rios off ice at [facility]. Patient stated that Dr. Rios recommend that he have a colon procedure RAFFI d ue to his bleeding. Patient stated that he would like to do his pill and colon at the same t sherin. Patient would like to cancel his pill cam appt on DEC 25 2019. Patient would like to do colon here at [facility]. Copies of referral have been sent to scan, in Dr. Gandhi box and placed in Lisa CHILDRESS desk . Patient aware of Dr. Gandhi and Lisa borjas. Provider/Nurse: [place]/ Call back number:[phone] documented in this encou nter Plan of [...] W | | | | | | [place], | | | | | | [place] [address] | | | | | | [phone] | | | | | | | [...]
--- OUTSIDE RECORDS SUMMARY | ~2020-06-03 | XMS | Encounter Summary ---
Demographics + + + | Address | [address] | | | [place] [address] | + + + | Home Phone [...] Team Providers + +------+ + | Care Freelance Director Name | Role | Phone | + +------+ + PCP | Unavailable | + +------+ + Encounter Details +--------+ + + + + | Date | Type | Department | Care Team | Description | +--------+ + + + + | 04/23/ | Hospital | [facility] | | | | 2007 - | Encounter | MED CTR MED ONC | | | | | | [address] | | | | 04/24/ | | [place] [address] | | | | 2007 | | [phone] | | | +--------+ + + + [...] | | | | | | [place] [address] | | | | | | [phone] | | | | | | | | +--------+ + + + + documented as of this encounter Visit Diagnoses Not on filedocumented in this encounter"
--- OUTSIDE RECORDS SUMMARY | ~2020-06-03 | XMS | Encounter Summary ---
Demographics + + + | Address | [address] [place] [address] [address] | | | [place] [address] | + + + | Home Phone [...] + + + | Author | [facility] | + + + | Organization | [facility] | + + + | Address | Unknown | + + + | Phone | Unavailable | + + + Support + + + + + | Name | Relationship | Address | Phone | + + + + + | Rachel Valencia | ELIEZER | [place] | | | | | [address] | | + + + + + Care Team Providers + +------+ + | Care Mannequin Refinisher Name | Role | Phone | + [...] | | | | [address] | [place], [place] | | | | | [facility] and | [address] | | | | | [facility] 2 | [phone] | | | | | [place], [place] | | | | | | [address] | | | | | | [phone] | | | +--------+ + + + [...]
--- OUTSIDE RECORDS SUMMARY | ~2020-06-03 | XMS | Encounter Summary ---
Demographics + + + | Address | [address] | | | [place] [address] | + + + | Home Phone [...] Providers + +------+ + | Care Log Clerk Name | Role | Phone | [...] 2019 | | GASTROENTEROLOGY | [address], [place] | | | | | [address] [place] | [address] [place], [place] | | | | | [address] [place], [place] | [address] | | | | | [address] | | | | | | [phone] | | | +--------+ + + + [...] and cursing; he stated he went to [place] ER last night with sto mach cramps, nausea; they gave imodium IV; he is now on his day of no food or able to ke ep fluids down; he refuses to call [facility] at this time to find out about [...] Provider/Nurse: Dr. Daniel / Darryn Call back number:[phone] elephone Encounter - Lisa Bonner RN - 05/08/2019 2:04 PM PDTReturned call to patient; suggested he conta ct [facility]; provided the toll free number listed from the referral; [phone]. He s tated he was not sure he wanted to go now because it is taking so long; advised it can take a while for referrals to get approved, then paperwork gathered and sent; once received the [facility] reviews and assigns; he will call [...] anywhere with the numb er provided to [facility] he will contact this clinic. elephone Encounter - Anastacio Bennett - 05/08/2019 1:46 PM PDTName of Caller:Moe Sanchez "Amilcar" Name of Patient:Moe Sanchez "Amilcar" Reason for call: Patient called and wanted to know the status of his referral to [facility]. Pham ent stated that has not received a call from them and informed patient that the clinical sta ff re-faxed referral to [facility] on 04/10/19. Patient wanted to speak with our kersey department supervisor but e was unavailable. Patient didn't have a pen and paper to write her number done. Patient sta kevin that he going to head to the hospital since he in severe pain/IBS. Routing to clinical gena warner. Provider/Nurse: Dr. Daniel/ Darryn Severiano back number: [phone] documented in this encfreeman health systemer Plan of Treatment +--------+ + + + [...] | | | | | | [place] [address] | | | | | | [phone] | | | | | | | | +--------+ + + + + documented as of this encounter Visit Diagnoses Not on filedocumented in this encounter
--- OUTSIDE RECORDS SUMMARY | ~2020-06-03 | XMS | Encounter Summary ---
Demographics + + + | Address | [address] | | | [place] [address] | + + + | Home Phone [...] | [facility] | | [...] Team Providers + +------+ + | Care Pleat Patternmaker Name | Role | Phone | [...] loss | [address] | [address], | | | | | Anxiety | [address] [place] | [place] [address] | | | | | disorder, | [address] | [place], | | | | | unspecified | [place], [place] | [place] [address] | | | | | Chronic | [address] | Phone: | | | | | pain | Phone: | [phone] | | | | | syndrome | [phone] | Fax: | | | | | Procedures | Fax: | [phone] | | | | | office visit | [phone] | | +--------+--------+ + + + + Encounter Details +--------+---------+ + + + | Date | Type | Department | Care Team | Description | +--------+---------+ + + + | 12/26/ | Office | [facility] | Emmanuel Daniel MD | Functional diarrhea | | 2019 | Visit | GASTROENTEROLOGY | [address], [place] | (Primary Dx); | | | | [address] [place] | [address] [place], [place] | Gastrointestinal | | | | [address] [place], [place] | [address] | hemorrhage | | | | [address] | | associated with | | | | [phone] | | anorectal source; | | | [...] of diarrhea since serving in the in [facility]. His last episodes of diarrhea started [...] inflammatory bowel disease. CT scan done through [facility] November s howed mild diverticulosis without evidence [...] | 2019 | Visit | | Janeen, TREE AND SHRUB WORKER [address] | | | | | | [place], | | | | | | [place] [address] | | | | | | [phone] | | | | | | | [...]
--- OUTSIDE RECORDS SUMMARY | ~2020-06-03 | XMS | Encounter Summary ---
Demographics + + + | Address | [address] | | | [place] [address] | + + + | Home Phone [...] Providers + +------+ + | Care Television Cabinet Finisher Name | Role | Phone | + +------+ + PCP | Unavailable | + +------+ + Encounter Details +--------+ + + + + | Date | Type | Department | Care Team | Description | +--------+ + + + + | 01/15/ | [facility] | [facility] | Emmanuel Daniel MD | | | 1994 | Encounter | MED CTR GENERIC OP | [address] [place] | | | | | CONV DEPT [address] | [address] [place] | | | | | [place], | [address] | | | | | [place] [address] | | | | | | [phone] | | | +--------+ + + + [...] | | | | | | [place] [address] | | | | | | [phone] | | | | | | | | +--------+ + + + + documented as of this encounter Visit Diagnoses Not on filedocumented in this encounter"
--- OUTSIDE RECORDS SUMMARY | ~2020-06-03 | XMS | Encounter Summary ---
Demographics + + + | Address | [address] | | | [place] [address] | + + + | Home Phone [...] Team Providers + +------+ + | Care Preload Supervisor Name | Role | Phone | [...] [place] | | | | | | [address] | | | | | | [phone] | | | +--------+ + + + [...] + + + +---------+ + + | Blanchard-3 Fatty | CAPS, one capsule by | [...] W | | | | | | [place], | | | | | | [place] [address] | | | | | | [phone] | | | | | | | | +--------+ + + + + documented as of this encounter Visit Diagnoses + + | Diagnosis | + + | Patient left after triage - Primary | + + documented in this encounter
--- OUTSIDE RECORDS SUMMARY | ~2020-06-03 | XMS | Encounter Summary ---
Demographics + + + | Address | [address] | | | [place] [address] | + + + | Home Phone [...] Providers + +------+ + | Care It Application Development Manager Name | Role | Phone [...] | (Primary Dx); | | | | [place], | [place], | Bradycardia; HTN | | | | [place] [address] | [place] [address] | (hypertension) | | | | [phone] | [phone] | | | | | | | [...] 53 y.o. male. PCP: Michael BOO Moe Sancehz is a 53 y.o. 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 He is being seen today for follow up on palpitatio ns. He was last seen 01/25/2013 at which time patient was going to [place] for community support specialist co nsult and PVC ablation. [...] tablet Take 1,000 mg by mouth Daily. [place]-3 Fatty Acids (SALMON OIL-1000 PO) CAPS, [...] He is in a class II of [place] Heart Association functional class. There is no [...] been encouraged to keep his appointment with community support specialist this coming y to attempt ablation therapy. 4. Follow up appointment in 4-6 weeks. IJaneen ARNP, saw this patient under the direct supervision of Daljit Singletary MD Portions of this report were transcribed using voice recognition software. Every effort wa s made to ensure accuracy; however, inadvertent computerized director of community services errors may be pre sent. documented in [...] W | | | | | | [place], | | | | | | [place] [address] | | | | | | [phone] | | | | | | | [...]
--- OUTSIDE RECORDS SUMMARY | ~2020-06-03 | XMS | Encounter Summary ---
Demographics + + + | Address | [address] | | | [place] [address] | + + + | Home Phone [...] Team Providers + +------+ + | Care Heeler Machine Name | Role | Phone | [...] | 01/24/ | Telephone | [facility] [place] | Daljit Singletary, | Other | | 2018 | | CARDIOLOGY [address] | [address] [place] | | | | | [place], | [place], | | | | | [place] [address] | [place] [address] | | | | | [phone] | [phone] | | | | | | | [...] PSTPatient called and left a message on voiceZOGOtennisil stating he has chest pain daily, with [...] | | | | | | [place] [address] | | | | | | [phone] | | | | | | | | +--------+ + + + + documented as of this encounter Visit Diagnoses Not on filedocumented in this encounter"
--- OUTSIDE RECORDS SUMMARY | ~2020-06-03 | XMS | Encounter Summary ---
Demographics + + + | Address | [address] | | | [place] [address] | + + + | Home Phone [...] Team Providers + +------+ + | Care Merry Go Round Operator Name | Role | Phone | + +------+ + | Kirk French MD | PCP | | + +------+ + Encounter Details +--------+ + + + + | Date | Type | Department | Care Team | Description | +--------+ + + + + | 04/07/ | Hospital | [facility] | Pia Akhtar | Spinal stenosis of | | 2016 | Encounter | MED CTR XRAY [address] | MD [address] | lumbar region | | | | [place] | [address] | | | | | [place] [address] | [place] [address] | | | | | [phone] | [phone] | | | | | | | [...] + + + +---------+ + + | Sullivan-3 Fatty | CAPS, one capsule by | [...] | | | | | | [place] [address] | | | | | | [phone] | | | | | | | [...]
--- OUTSIDE RECORDS SUMMARY | ~2020-06-03 | XMS | Encounter Summary ---
Demographics + + + | Address | [address] | | | [place] [address] | + + + | Home Phone [...] changed his mind) | | | | [place], | [place], | | | | | [place] [address] | [place] [address] | | | | | [phone] | [phone] | | | | | | | [...] Telephone Encounter - Darlene Tirado RN - 10/25/2014 3:43 PM PSTReferral given [...] | | | | | | [place] [address] | | | | | | [phone] | | | | | | | | +--------+ + + + + documented as of this encounter Visit Diagnoses Not on filedocumented in this encounter"
--- OUTSIDE RECORDS SUMMARY | ~2020-06-03 | XMS | Encounter Summary ---
Demographics + + + | Address | [address] | | | [place] [address] | + + + | Home Phone [...] Team Providers + +------+ + | Care Fleet Mechanic Name | Role | Phone | [...] + | 10/01/ | Telephone | [facility] | Mary [place] | Foot Pain | | 2013 | | CARE [address] | Guy Larkin MD | | | | | [place] | [address] | | | | | [address] | [place] | | | | | [phone] | [address] | | | | | | | [...] Romero Cert MA - 10/01/2014 5:08 PM [facility] pain clinic called to verify if patient [...] | | | | | | [place] [address] | | | | | | [phone] | | | | | | | | +--------+ + + + + documented as of this encounter Visit Diagnoses Not on filedocumented in this encounter"
--- OUTSIDE RECORDS SUMMARY | ~2020-06-03 | XMS | Encounter Summary ---
Demographics + + + | Address | [address] | | | [place] [address] | + + + | Home Phone [...] Providers + +------+ + | Care Studio Director Name | Role | Phone | [...] Other | | 2012 | | MEDICINE RANDOLPH | DO [address] | | | | | [address] | [place] | | | | | [place], [place] | [address] | | | | | [address] | | | | | | [phone] | | | +--------+ + + + [...] - 10/09/2013 10:49 AM Jessica Huttonstalin from [facility] NicoletteNestor called She is the cook manager for [employer] They just wanted to let you know [...] | | | | | | [place] [address] | | | | | | [phone] | | | | | | | | +--------+ + + + + documented as of this encounter Visit Diagnoses Not on filedocumented in this encounter"
--- OUTSIDE RECORDS SUMMARY | ~2020-06-03 | XMS | Encounter Summary ---
Demographics + + + | Address | [address] | | | [place] [address] | + + + | Home Phone [...] Providers + +------+ + | Care Lubrication Equipment Servicer Name | Role | Phone [...] | | | pain | [address] | [address] | | | | | Procedures | St [place] | [place], | | | | | [place] Nuclear | [place], [place] | [place] | | | | | Stress Test | [address] | [address] | | | | | (Vasodilator | Phone: | Phone: | | | | | ) CHG | [phone] | [phone] | | | | | MYOCARDIAL | Fax: | Fax: | | | | | SPECT | [phone] | [phone] | | | | | MULTIPLE | [...] 2012 | | CARDIOLOGY [address] | BOLT MACHINE OPERATOR [address] | interactions, chest | | | | [place], | St [place], [place] | pain) | | | | [place] [address] | [address] | | | | | [phone] | | | +--------+ + + + [...] 10/17/2013 17:15 elephone Encounter - Geri Bautista, BOLT MACHINE OPERATOR - 10/17/2013 12:54 PM PSTAmy, I think [...] to his symptoms. He was evaluated in [place] at [facility] with Dr. Qureshi in electrophysiology, and is [...] advised that he can not drive to [place] in his condition an d he "won't go to the ER in [place]". I strongly advised that our recommendation would [...] | 10/30/ | Office | Cardiology | [place], | | | 2019 | Visit | | PARISA [place] [address] | | | | | | [place], | | | | | | [place] [address] | | | | | | [phone] | | | | | | | | +--------+ + + + + documented as of this encounter Results [place] Nuclear Stress Test (Vasodilator) (12/07/2013 7:01 AM PST) + + | Specimen | + + | | + + + + + | Narrative | Performed At | + + + | [facility] Diagnostic [facility] | [place] | | Department [address] [place] | [facility] | | [ rep ct street[address]] [ rep ct city | [facility] | | st zip] Signed | - IMAGING | | | | | Patient Name: MOE GAY | | | Physician: JACKLYN : 1960 Age: 53 Sex: M Unit | | | #: [id number] Exam Date: 12/06/13 Location: | | | [facility] Report #: [id number] Page: | | | %(RAD)RES..mtdd.print.filter("pg") of %(RAD) | | | RES..mtdd.print.filter("tpg") | | | | | | Accession Number: [id number] | | | PERSANTINE SESTAMIBI STRESS TEST, [...] Transcribed Date/Time: 12/07/2013 08:18 | | | Import Customer Service Manager: <<Signature on File>> | | | | | | Daljit Singletary MD [facility] FASE12/07/13 1321 <Electronically signed | | | by Daljit Singletary MD, [facility], FACP, FASE, FASNC> Daljit | | | MD Gemini [facility] 12/07/13 0701 Import Customer Service Manager: [employer] | | | Mhflaowiexeet30/16/14 0818 PARISA Garcia | | + + + + + + + + | Performing | Address | City/State/Zipcode | Phone Number | | Organization | | | | + + + + + | [facility] | [address] | [place] | [phone] | | [facility] | | [address] | | | - IMAGING | | | | + + + + + documented in this encounter Visit Diagnoses + + | Diagnosis | + + | Other chest pain - Primary | + + documented in this encounter
--- OUTSIDE RECORDS SUMMARY | ~2020-06-03 | XMS | Encounter Summary ---
Demographics + + + | Address | [address] | | | [place] [address] | + + + | Home Phone [...] Providers + +------+ + | Care Director Employee Communications Name | Role | Phone | [...] + | 05/05/ | Telephone | [facility] | Silvia, | Appointment | | 2017 | | CARDIOLOGY [address] | [place] [address] | | | | | [place], | [place], | | | | | [place] [address] | [place] [address] | | | | | [phone] | [phone] | | | | | | | [...] Wednesday05/10/17 @ 1:30. elephone Encounter - Briseida Maritno - 05/05/2017 8:12 AM PDTPatient's car diology appointment with Janeen Vega on 05-13-17 at 3:00 needs to be rescheduled as pro vider is out. Called patient, left [facility] with request for patient to call [...] | | | | | | [place] [address] | | | | | | [phone] | | | | | | | | +--------+ + + + + documented as of this encounter Visit Diagnoses Not on filedocumented in this encounter"
--- OUTSIDE RECORDS SUMMARY | ~2020-06-03 | XMS | Encounter Summary ---
Demographics + + + | Address | [address] [place] [address] [address] | | | [place] [address] | + + + | Home Phone [...] [place] | | | | | [address] | | + + + + + Care Team Providers + +------+ + | Care Furnace Repair Mechanic Name | Role | Phone | [...] 2019 | | Center at [facility] [address] | Gastroenterology | Gastroenterology | | | | [address] [facility] | | | | | | for Health and | | | | | | Shree, [address] | | | | | | [place], [place] | | | | | | [address] | | | | | | [phone] | | | +--------+ + + + [...]
--- OUTSIDE RECORDS SUMMARY | ~2020-06-03 | XMS | Encounter Summary ---
Demographics + + + | Address | [address] | | | [place] [address] | + + + | Home Phone [...] | 04/07/ | Office | [facility] | Matthew Uriarte | Left ureteral | | 2019 | Visit | [address] | MD Tawanna [address] | calculus (Primary | | | | [place], [place] | AVE [place] | Dx); Kidney stones | | | | [address] | [address] | | | | | [phone] | | | +--------+---------+ + + + [...] April 13, 2019 at 7:45 AM at [facility]. Please report to the [facility] Procedure Center no later than 6:15 AM. REMEMBER: NOTHING TO EAT OR DRINK AFTER MIDNIGHT April 12, 2019. NO FISH OIL, ASPIRIN OR ASPIRIN PRODUCTS ONE WEEK PRIOR TO SURGERY. Tylenol and Advil are OK. You will need to get the following testing done prior to surgery: CBC, BMP YOU WILL NEED TO BRING A DINING CAR WAITER/WAITRESS WITH YOU THE DAY OF SURGERY. Call us at [phone] with any questions. [] Pain management booklet [...] CV LHC; Surgeon: Daljit Singletary MD; Location: [facility] CV LAB CARDIAC CATHERIZATION N/A 01/25/2019 Procedure: CV Cor Angio; Surgeon: Daljit Singletary MD; Location: [facility] CV LAB COLONOSCOPY N/A 12/24/2017 Procedure: COLONOSCOPY; Surgeon: Emmanuel Daniel MD; Location: [facility] MEDICAL PROCEDURE UNIT COLONOSCOPY N/A 01/05/2019 Procedure: COLONOSCOPY; Surgeon: Emmanuel Daniel MD; Location: [facility] MEDICAL PROCEDURE UNIT EGD 12/24/2017 [...] Location: [facility] MEDICAL PROCEDURE UNIT UPPER GASTROINTESTINAL ENDOSCOPY N/A 01/05/2019 Procedure: EGD; Surgeon: Emmanuel Daniel MD; Location: [facility] MEDICAL PROCEDURE UNIT VASECTOMY Family [...] 911, Disp: 100 ta blet, Rfl: 3 [place]-3 Fatty Acids (SALMON OIL-1000 PO), CAPS, one capsule by mouth daily twice daily , Disp: , Rfl: ondansetron (ZOFRAN ODT) 4 mg disintegrating tablet, Take 4 mg by mouth., Disp: , Rfl: ONE TOUCH DELICA LANCETS [facility], Check glucose as needed for hypoglycemia, Disp: [...] have not thoroughly proofread this note, and keg inspector errors are very likely to occur. CC: [...] | | | | | | [place] [address] | | | | | | [phone] | | | | | | | [...]
--- OUTSIDE RECORDS SUMMARY | ~2020-06-03 | XMS | Encounter Summary ---
Demographics + + + | Address | [address] | | | [place] [address] | + + + | Home Phone [...] Providers + +------+ + | Care Airport Location Manager Name | Role | Phone | [...] + | 02/21/ | Telephone | [facility] | Emmanuel Daniel MD | Other (? referral) | | 2019 | | GASTROENTEROLOGY | [address], [place] | | | | | [address] [place] | [address] [place], [place] | | | | | [address] [place], [place] | [address] | | | | | [address] | | | | | | [phone] | | | +--------+ + + + [...] requesting Dr. Daniel reconsider sending referral to [facility] because they will not acce pt referral from PCP. [facility] told him outside referrals as far [...] on Wednesday we can request referral to [facility] for IBS, he agreed. He said likely they will tell him same thing as Dr. Daniel, but he would like [facility] to discuss with them. Phone note on [...] | | | | | | [place] [address] | | | | | | [phone] | | | | | | | | +--------+ + + + + documented as of this encounter Visit Diagnoses Not on filedocumented in this encounter
--- OUTSIDE RECORDS SUMMARY | ~2020-06-03 | XMS | Encounter Summary ---
Demographics + + + | Address | [address] | | | [place] [address] | + + + | Home Phone [...] + +------+ + | Care Sales Representative Aircraft Name | Role | Phone | [...] Results | | 2013 | | MEDICINE [place] | DO [address] | | | | | [address] | [place], [place] | | | | | [place], [place] | [address] | | | | | [address] | | | | | | [phone] | | | +--------+ + + + [...] | | | | | | [place] [address] | | | | | | [phone] | | | | | | | | +--------+ + + + + documented as of this encounter Visit Diagnoses Not on filedocumented in this encounter"
--- OUTSIDE RECORDS SUMMARY | ~2020-06-03 | XMS | Encounter Summary ---
Demographics + + + | Address | [address] | | | [place] [address] | + + + | Home Phone [...] + | 09/30/ | Telephone | [facility] | Anshumarianatesha Daljit, | Other ([place] | | 2018 | | CARDIOLOGY [address] | [address] | remote) | | | | [place], | [place], | | | | | [place] [address] | [place] [address] | | | | | [phone] | [phone] | | | | | | | [...] voice message that we have not received [facility] remote pacemaker report this week. Requested to [...] | | | | | | [place] [address] | | | | | | [phone] | | | | | | | | +--------+ + + + + documented as of this encounter Visit Diagnoses Not on filedocumented in this encounter"
--- OUTSIDE RECORDS SUMMARY | ~2020-06-03 | XMS | Encounter Summary ---
Demographics + + + | Address | [address] | | | [place] [address] | + + + | Home Phone [...] Providers + +------+ + | Care Press Helper Name | Role | Phone [...] visit | CARDIOLOGY [address] | [address] | reprogramming/check | | | | [place], | [place], | DO NOT DELETE | | | | [place] [address] | [place] [address] | (Primary Dx); | | | | [phone] | [phone] | Sinoatrial node | | | | [...] | | | | | | [place] [address] | | | | | | [phone] | | | | | | | [...]
--- OUTSIDE RECORDS SUMMARY | ~2020-06-03 | XMS | Encounter Summary ---
Demographics + + + | Address | [address] | | | [place] [address] | + + + | Home Phone [...] Team Providers + +------+ + | Care Coil Winder Hand Name | Role | Phone | + +------+ + | Kirk French MD | PCP | | + +------+ + Encounter Details +--------+---------+ + + + | Date | Type | Department | Care Team | Description | +--------+---------+ + + + | 01/25/ | Surgery | [facility] | Daljit Singletary, | CV LHC | | 2019 | | MED CTR CV INTRA OP | [address] | | | | | [address] | [address], | | | | | [place] | [place] [address] | | | | | [address] | [phone] | | | | | [phone] | | | +--------+---------+ + + + [...] as a collagen plugis used on the holy cross triny site to close the site, you [...] by your healthcare provider Date Last Reviewed: 09/22/201619999749-6735 [employer]. [address] [place] [address]. All righ ts reserved. This information is [...] + + + +---------+ + + | [place]irk-3 Fatty | CAPS, one capsule by | [...] of non-critical coronary artery d isease involving [place] coronary artery of [place] heart without angina pectoris, essential h ypertension, [...] health care Coronary artery disease involving [place] coronary artery of [place] heart without angina pectoris Cannabis abuse, [...] 3RD DOSE, CALL 911 100 tablet 3 [place]-3 Fatty Acids (SALMON OIL-1000 PO) CAPS, one capsule by mouth daily twice daily ondansetron (ZOFRAN ODT) 4 mg disintegrating tablet Take 4 mg by mouth. ONE TOUCH DELICA LANCETS [facility] [...] was found Confirmed by ANGELA MARADIAGA MD ([id number]) on 01/03/2019 8:10:39 PM LAB RESULTS reviewed [...] the HPI. RESULTS- I reviewed reports from [facility]: Xr Chest Ap Portable Result Date: [...] 1. Non-critical Coronary artery disease involving [place] coronary artery of [place] heart [facility] angina pectoris: A. Normal exercise [...] Symptoms with moderate exertion of t he [place] Heart Association functional class. Heart failure stage [...] arrhythmia performed by Dr. Gambino at [facility] on 01/30/2013. Patient had [...] go back in 3 days t o [place] for an attempt of ablation under general [...] he has any further problems Christine Clemente Director Of Marketing am acting as a scribe on behalf of, and in the pres ence of PARISA Lomas. - Christine M Sheoships, Director Of Marketing 01/11/2019 13:46 I, PARISA Lomas, personally performed the services described in this documentati on, as scribed in my presence and it is both accurate and complete. -PARISA Lomas 01/11/2019 Portions of this chart may have been created with [employer]ave[employer] voice recognition software. Occasi onal wrong-word or [...] | | | | | | [place] [address] | | | | | | [phone] | | | | | | | [...] (1960) MEDICAL RECORD NUMBER: | | | [id number] OF PROCEDURE: 01/25/2019 PAINTER ROUGH: Daljit | | | MD Gemini PROCEDURES [...] Sanchez, (1960) | | OF PROCEDURE: 01/25/2019PRIMARY CERTIFIED CREDIT COUNSELOR: Daljit Singletary MD PROCEDURES | | PERFORMED:Coronary [...] or lesion | | type, unspecified whether [place] or transplanted heart | + + documented [...]
--- OUTSIDE RECORDS SUMMARY | ~2020-06-03 | XMS | Encounter Summary ---
Demographics + + + | Address | [address] | | | [place] [address] | + + + | Home Phone [...] Team Providers + +------+ + | Care Private Duty Rn Name | Role | Phone | [...] + | 10/04/ | Telephone | [facility] | Gemini Shaistakenneth, | Other (Records sent) | | 2012 | | CARDIOLOGY [address] | MD [address] [place] | | | | | [place], | [place], | | | | | [place] [address] | [place] [address] | | | | | [phone] | [phone] | | | | | | | [...] | | | | | | [place] [address] | | | | | | [phone] | | | | | | | | +--------+ + + + + documented as of this encounter Visit Diagnoses Not on filedocumented in this encounter"
--- OUTSIDE RECORDS SUMMARY | ~2020-06-03 | XMS | Encounter Summary ---
Demographics + + + | Address | [address] [place] [address] [address] | | | [place] [address] | + + + | Home Phone [...] [place] | | | | | [address] | | + + + + + Care Team Providers + +------+ + | Care Credit Relationship Manager Name | Role | Phone [...] Chest pain | Farooq Almaguer, | Ch[address] | | | | | Bradycardia | DO [address] | | | | | Procedures | Yao Booth | [facility] | | | | | | [facility] | Health and | | | | | TRANSTHORACI | [facility] [place] | Healing, | | | | | C | [address] | [address] | | | | | ECHOCARDIOGR | Phone: | [place], [place] | | | | | AM, ADULT | [phone] | [address] | | | | | | Fax: | Phone: | | | | | | [phone] | [phone] | +--------+--------+ + + + + Encounter Details +--------+ + + + + | Date | Type | Department | Care Team | Description | +--------+ + + + + | 02/03/ | Hospital | Cardiac | | | | 2010 | Encounter | Non-Invasive Testing | | | | | | at [facility] [address] | | | | | | [facility] for | | | | | | Health and Healing, | | | | | | [address] | | | | | | [place], [place] | | | | | | [address] | | | | | | [phone] | | | +--------+ + + + [...]
--- OUTSIDE RECORDS SUMMARY | ~2020-06-03 | XMS | Encounter Summary ---
Demographics + + + | Address | [address] | | | [place] [address] | + + + | Home Phone [...] | CARDIOLOGY [address] | [address] [place] | (Primary Dx); | | | | [place], | [place], | Tachycardia; | | | | [place] [address] | [place] [address] | Coronary artery | | | | [phone] | [phone] | disease involving | | | | | | [place] coronary | | | | | | artery of [place] | | | | | | heart [...] | | | | | | [place] [address] | | | | | | [phone] | | | | | | | [...] involving | | | | | | [place] coronary | | | | | | artery of [place] | | | | | | heart [...] MD | | | | | | ([id number]) on 06/29/2018 | | | | | [...] + + | Coronary artery disease involving [place] coronary artery of [place] heart without | | angina pectoris | + + | Hypertension, unspecified type | + + documented in this encounter"
--- OUTSIDE RECORDS SUMMARY | ~2020-06-03 | XMS | Encounter Summary ---
Demographics + + + | Address | [address] | | | [place] [address] | + + + | Home Phone [...] Team Providers + +------+ + | Care Alloy Weigher Name | Role | Phone | [...] | CARDIOLOGY [address] | [address] [place] | Interrogation | | | | [place], | [place], | (Primary Dx); | | | | [place] [address] | [place] [address] | Presence of | | | | [phone] | [phone] | permanent cardiac | | | | [...] Paceart documentation and remote PDF scanned into [employer] for remote interrogation re sults. Data [...] | | | | | | [place] [address] | | | | | | [phone] | | | | | | | [...] Paceart documentation and remote PDF scanned into [employer] | | | for remote interrogation results. [...]
--- OUTSIDE RECORDS SUMMARY | ~2020-06-03 | XMS | Encounter Summary ---
Demographics + + + | Address | [address] | | | [place] [address] | + + + | Home Phone [...] Team Providers + +------+ + | Care Bad Credit Collector Name | Role | Phone | [...] + + | 01/05/ | Office | [facility] | Silvia, | Pacemaker - | | 2017 | Visit | CARDIOLOGY [address] | [place] [address] | [employer] - [id number] | | | | [place], | [place], | [employer] - Implanted | | | | [place] [address] | [place] [address] | 06/14/2009 (Primary | | | | [phone] | [phone] | Dx); Chest pain, | | | [...] involving | | | | | | kiana coronary | | | | | | artery of [place] | | | | | | heart [...] documented as of this encounter Progress Notes Silvia JaneenPARISA villarreal - 01/05/2018 8:30 AM PSTFormatting of this note might be differen t from the original. PATIENT NAME: Moe Sanchez : 1960: AGE: 57 y.o. PRIMARY CARE: Kirk French MD OUTPATIENT FOLLOW UP VISIT Date of Service: 01/05/2018 HISTORY OF PRESENT ILLNESS: Moe Sanchez is a 57 y.o. 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 He went to the ER in [place] because th e NTG didn't relieved the pain. He was diagnosed with bronchitis. Otherwise he has had no ot her symptoms. He has had a good energy level. He tries to stay active. He has joined a [employer] gym and trying to exercise more often. [...] Preventative health care Coronary artery disease involving [place] coronary artery of [place] heart without angina pectoris Cannabis abuse, daily [...] 3RD DOSE, CALL 911 100 tablet 3 [place]-3 Fatty Acids (SALMON OIL-1000 PO) CAPS, one [...] 131 (A) 10/18/2017 I reviewed records from [facility] for office visit on 01/2017 whic [...] overload. 2. Non-critical Coronary artery disease involving [place] coronary a rtery of k[place] heart without angina pectoris: A. Normal exercise [...] cannot completely be ruled out . [facility] 12/25/13, shows non critical coronary [...] ventricular arrhythmia performed by Dr. Gambino at [facility] on 01/30/2013. Patient had spontaneous [...] go back in 3 days to [place] for an attempt of ablation under general [...] function. Estimated remaining [facility] longevity is 3.5 years.. 5. [...] this chart may have been created with [employer] voice recognition software. Occasi onal wrong-word or [...] | | | | | | [place], | | | | | | [place] [address] | | | | | | [phone] | | | | | | | [...] involving | | | | | | [place] coronary | | | | | | artery of kiana | | | | | | heart [...] SYDNI | | | | | | ([id number]) on 01/06/2018 | | | | | [...] + + | Coronary artery disease involving k[place] coronary artery of kiana heart without | | angina pectoris | + + | Hyperlipidemia, mixed Mixed hyperlipidemia | + + | Hypertension, unspecified type | + + | Syncope, unspecified syncope type | + + | Ascending thoracic aortic aneurysm (HCC) Thoracic aneurysm without mention of rupture | + + documented in this encounter
--- OUTSIDE RECORDS SUMMARY | ~2020-06-03 | XMS | Encounter Summary ---
Demographics + + + | Address | [address] | | | [place] [address] | + + + | Home Phone [...] Providers + +------+ + | Care Regulatory Consultant Name | Role | Phone | [...] | | | | exertion | | [place] | | | | | Chest pain | | [place], [place] | | | | | on exertion | | [address] | | | | | | | Phone: | | | | | | | [phone] | | | | | | | Fax: | | | | | | | [phone] | +--------+--------+ + + + + Encounter Details +--------+ + + + + | Date | Type | Department | Care Team | Description | +--------+ + + + + | 04/27/ | [facility] | [facility] | Martell Hart | Chest pain on | | 2014 - | | [facility] | Sanjay Palacios MD | exertion (Primary | | | | [address] [place] | [address] | Dx); Dyspnea on | | 03/20/ | | [place] [address] | [place] | exertion; Essential | | 2014 | | [phone] | [address] | hypertension; Acute | | | | | | chest pain; | | | | | Parth Kraft, | Dizziness, | | | | | [address] | nonspecific; Mixed | | | | | [place] | anxiety depressive | | | | | [address] | disorder; PUD | | | | | [phone] | (peptic ulcer | | | | [...] might be different f rom the original. [facility] DISCHARGE SUMMARY Pt. Name/Age/: Moe Sanchez 55 y.o. 1960 Date of Admission: 03/18/2015 Date of Discharge: 03/20/2015 Admitting Physician: Parth rKaft MD Primary Care Provider: Kirk French Discharging [...] mg by mouth as needed. aka: BENADRYL [place] 550 MG Caps Take by mouth. [...] 911 aka: NITROSTAT ONE TOUCH DELICA LANCETS [facility] Check glucose as [...] Daily. to reduce urinary frequency - Lot #[id number], exp 07/2016 aka: RAPAFLO UNCODED MEDICATION - [...] hospital follow up Contact information: Eva Librado [facility] [address] [facility] [address] Call PARISA Russell. Specialty: Nurse Practitioner Why: As needed Contact information: [address] [place] [address] Condition: Patient being discharged with condition improved. Diet: Heart healthy, avoid acidic drinks and foods, spicy foods, too much coffee. Greater than 30 minutes were spent on discharge and coordination of post-hospital care. Electronically signed by: Thierry Fregoso DO, 03/20/2015 11:22 [facility] Portions of this chart may have been created with [employer] voice recognition software. Occasi onal wrong-word or [...] afford the prescribed medication, you can try jxwf-jvb-youizku acid blockers, such as Pepcid AC, Tagamet, [...] or as directed by your healthcare provider [phone] [employer]. [address] [place] [address], [place] [address]. All righ ts reserved. This information is [...] | | | | | | | #[id number], exp 07/2016 | | | | | [...] DO - 03/19/2015 10:09 PM PDT . [facility] PROGRESS NOTE Patient: Moe Sanchez : 1960: Age: 55 y.o. MedRec: [id number] PCP: Krik French Admission date: 03/18/2015 Hospital day # [...] tablet 200 mg 200 mg Oral Daily Parht Kraft MD 200 mg at 03/19/15 0950 [...] 1708 03/18/15 1528 TROPONINI <0.01 <0.01 0.01 [facility] ECHOCARDIOGRAM REPORT STUDY DATE: 03/19/2015 [...] changes. No results for input(s): PHART, PO2ART, SYI1LKF, VDM0FEW, BEART, N4XSZRYN in the last 168 h ours. No results for input(s): SPECSOURCE, PHPOCB, HCO3, TCO2, BEART, BE, QIZN2PEW in the last 16 8 hours. Invalid input(s): OQTMG2SP, JOKV3ZR Point of care glucose: No results for [...] minutes today. Thierry Fregoso DO 03/19/2015 22:09 [facility] Portions of this chart may have been created with [employer] voice recognition software. Occasi onal wrong-word or sound-alike substitutions may have occurred due to the inherent granger itations of voice recognition software. Please read the chart carefully and recognize, using context, where these substitutions have occurred Belén Cho RN - 03/19/2015 11:03 AM [id number] Report given to Marlen morejon who is assuming care. Electronically signed by: Jaja Hay RN 03/19/2015 11:04 ieter Callejas RN - 03/19/2015 10:44 AM PDTAssumed care of patient, received report from MONROE Wilkinson. documented in t his encounter H&P Notes Parth Kraft MD - 03/18/2015 8:45 PM PDTFormatting of this note might be different f rom the original. [facility] SERVICES HISTORY AND PHYSICAL Pt. Name/Age/: [...] mouth Daily. Qty: 30 tablet, Refills: 6 [facility] Natural [...] call 911 Qty: 25 tablet, Refills: 11 [place]-3 Fatty Acids (SALMON OIL-1000 PO) CAPS, one capsule by mouth daily twice daily ONE TOUCH DELICA LANCETS [facility] [place] [place] Check glucose as needed for hypoglycemia Qty: [...] mouth Daily. to reduce urinary frequency Lot #[id number], exp 07/2016 Qty: 21 capsule, Refills: 0 UNCODED MEDICATION Diagnosis: Obstructive Sleep Apnea ICD-9: 327.23 Length of Need: 99 Months Qty: 1 Device, Refills: 0 Comments: A7033 -Nasal Pillows, P8962-Qaxwt Mask, A7030- Full Face Mask, M1513-Gkxlvb Humi difier, Y1121-Oieqbi Tubing, X3388-Oriudvsl, R7563-Hjaeawlur A7039/U4277-Sdqkruq valACYclovir (VALTREX) 500 mg tablet take 1 [...] signed by: Parth Kraft MD 03/19/2015 4:24 [facility] Portions of this chart may have been created with [employer] voice recognition software. Occasi onal wrong-word or [...] No acute ischemic changes. documented in this [facility] ED Notes Martell Hart MD - 03/18/2015 3:17 PM PDTFormatting of this note might be d ifferent from the original. [facility] Moe Sanchez Emergency Department Encounter Note [address] [place] [address] PCP:Kirk French x2500 eMERGENCY dEPARTMENT eNCOUnter CHIEF [...] TABLET Take 1 tablet by mouth Daily. [facility] [place] NATURAL PRODUCTS (OSTEO BI-FLEX/5-LOXIN ADVANCED PO) Take [...] [place] Check glucose as needed for hypoglycemia PANTOPRAZOLE (PROTONIX) 40 MG TABLET Take 1 tablet by mouth Daily. PRAVASTATIN (PRAVACHOL) 40 MG TABLET take 1 tablet by mouth once daily PROMETHAZINE (PHENERGAN) 25 MG TABLET Take 25 mg by mouth every 8 hours as needed. SILODOSIN (RAPAFLO) 8 MG CAPS Take 1 capsule by mouth Daily. to reduce urinary frequenc y Lot #[id number], exp 07/2016 UNCODED MEDICATION Diagnosis: Obstructive Sleep [...] deficits noted, no facial assymetry noted. 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 EKG Interpretation Interpreted by emergency department physician Rhythm: electric pacemaker. Rate: 73 [place]: normal Ectopy: none Conduction: P wave normal, [...] this chart may have been created with [employer] voice recognition software. Occasi onal wrong-word or [...] Summary & Review . Discharge planning; [place]/O [place], 24 OBS. Amilcar lives in [place], [place] with his and two b eloved [place]ottwe[place]. He is hoping to be discharged home today. He has his own vehicle in [facility]. He sees Whit Segovia at the Pain [...] Summary & Review . Pt arrived to [facility] at 2114 with no c/o pain. His [...] | | | | | | [place] [address] | | | | | | [phone] | | | | | | | [...] Performed At | + + + | [facility] ECHOCARDIOGRAM REPORT | | | [...] | | Signed by: Daljit Singletary MD [facility] 03/19/2015 15:44 | | | Promotions Manager: Dewey Valdez RDMS | | + [...] | | | | | | [employer] | | | | | [...] + | [facility] | [address] | [place] | [phone] | | [facility] | | [address] | | | - LABORATORY | | [...] mL/min/1.73m2 | [facility] | | | [place]DIAN | RATE,ESTIMATED | | MEDICAL | | | | mL/min/1.39h7Midc than | | CENTER - | | [...] ST. | [address] | [place], [place] | [phone] | | [facility] | | [address] | | | - LABORATORY | | [...] Basophils | | K/uL | [facility] | | | | | [...] [address] | [place] | [phone] | | [facility] | | [address] | | | - LABORATORY | | [...] | | | | | | [employer] | | | | | [...] [address] | [place] | [phone] | | [facility] | | [address] | | | - LABORATORY | | [...] [address] | [place] | [phone] | | [facility] | | [address] | | | - LABORATORY | | [...] | | | | | [facility] | | | | | | MEDICAL | | | | | | [place] - | | | | | | [...] [address] | [place] | [phone] | | [facility] | | [address] | | | - LABORATORY | | [...] [address] | [place] | [phone] | | [facility] | | [address] | | | - LABORATORY | | [...] [address] | [place] | [phone] | | [facility] | | [address] | | | - LABORATORY | | [...] | | | | | | [employer] | | | | | [...] [address] | [place] | [phone] | | [facility] | | [address] | | | - LABORATORY | | [...] [facility] | | | | | | [facility] | | | | | | MEDICAL | | | | | | [place] - | | | | | | LABORATORY | | + +-------+ + + + + + | Specimen | + + | Blood | + + + + + + + | Performing | Address | City/State/Zipcode | Phone Number | | Organization | | | | + + + + + | [facility] | [address] | [place] | [phone] | | [facility] | | [address] | | | - LABORATORY | | [...] | | MEDICAL | | | | mL/min/1.47i5Jzjl than | | CENTER - | | [...] ST. | [address] | [place], [place] | [phone] | | [facility] | | [address] | | | - LABORATORY | | [...] [address] | [place] | [phone] | | [facility] | | [address] | | | - LABORATORY | | [...]
--- OUTSIDE RECORDS SUMMARY | ~2020-06-03 | XMS | Encounter Summary ---
Demographics + + + | Address | [address] | | | [place] [address] | + + + | Home Phone [...] Team Providers + +------+ + | Care Drywaller Name | Role | Phone | + [...] 2019 | | GASTROENTEROLOGY | [address], [place] | | | | | [address] [place] | [address] [place], [place] | | | | | [address] [place], [place] | [address] | | | | | [address] | | | | | | [phone] | | | +--------+ + + + [...] 09/07/2019 11:10 AM [facility]. he states he had the "worse cr amping of his life. He received fluids. Cramping has eased up. He states Imaging and labs were done. He has appt at [facility] 09/28[facility]19. He will [facility] from [facility] and from [facility]. e juan m Encounter - [...] Dr. Daniel / Darryn Call back number: [phone] documented [facility] Plan of Treatment +--------+ + [...] | | | | | | [place] [address] | | | | | | [phone] | | | | | | | | +--------+ + + + + documented as of this encounter Visit Diagnoses Not on filedocumented in this encounter
--- OUTSIDE RECORDS SUMMARY | ~2020-06-03 | XMS | Encounter Summary ---
Demographics + + + | Address | [address] | | | [place] [address] | + + + | Home Phone [...] Providers + +------+ + | Care Leather Sponger Name | Role | Phone | + [...] 2019 | | GASTROENTEROLOGY | [address], [place] | | | | | [address] [place] | [address] [place], [place] | | | | | [address] [place], [place] | [address] | | | | | [address] | | | | | | [phone] | | | +--------+--------+ + + + [...] | | | | | | [place] [address] | | | | | | [phone] | | | | | | | | +--------+ + + + + documented as of this encounter Visit Diagnoses Not on filedocumented in this encounter"
--- OUTSIDE RECORDS SUMMARY | ~2020-06-03 | XMS | Encounter Summary ---
Demographics + + + | Address | [address] | | | [place] [address] | + + + | Home Phone [...] Team Providers + +------+ + | Care Ob/Gyn Physician Name | Role | Phone | + +------+ + | Kirk French MD | PCP | | + +------+ + Encounter Details +--------+ + + + + | Date | Type | Department | Care Team | Description | +--------+ + + + + | 07/05/ | Hospital | [facility] | Conversion | Acute neck pain | | 2017 | Encounter | [facility] | Transaction, | | | | | [address] [place] | Provider Unknown | | | | | [address] [place], [place] | [phone] | | | | | [address] | | | | | | [phone] | Alden Apolonia | | | | | | MD Shelly [address] | | | | | | [address] | | | | | | [place], [place] | | | | | | [address] | | | | | | [phone] | | | | | | | [...] + + + +---------+ + + | [place]-3 Fatty | CAPS, one capsule by [...] | | | | | | [place] [address] | | | | | | [phone] | | | | | | | [...] Conversion - 07/06/2019 12:12 AM PDT PINA LEVINE CERVICAL SPINE LIMITED | | 2-3 [...]
--- OUTSIDE RECORDS SUMMARY | ~2020-06-03 | XMS | Encounter Summary ---
Demographics + + + | Address | [address] | | | [place] [address] | + + + | Home Phone [...] Providers + +------+ + | Care Manager Field Service Name | Role | Phone | [...] | | | | [place] | [phone] | | | | | [address] | | | | | | [phone] | | | +--------+ + + + [...] + + +---------+ + + | [address]-3 Fatty | CAPS, one capsule by | [...] | | | | | | [place] [address] | | | | | | [phone] | | | | | | | [...]
--- OUTSIDE RECORDS SUMMARY | ~2020-06-03 | XMS | Encounter Summary ---
Demographics + + + | Address | [address] | | | [place] [address] | + + + | Home Phone [...] Team Providers + +------+ + | Care Pensions Retirement Plan Specialist Name | Role | [...] [facility] | [place], | Symptomatic PVCs | | 2012 | Visit | CARDIOLOGY [address] | [place] [address] | (Primary Dx); CAD; | | | | [place], | [place], | Hyperlipidemia; | | | | [place] [address] | [place] [address] | PACEMAKER, PERMANENT | | | | [phone] | [phone] | - [employer] | | | | [...] tablet by mouth Daily. 30 tablet 6 [place]-3 Fatty Acids (SALMON OIL-1000 PO) CAPS, [...] Reviewed records from PCP and notes from [facility]. Assessment: 1. Symptomatic PVCs status post [...] to go back in 3 days to [place] for an attempt of ablation under general [...] is upgraded to class I of [place] Heart Association functional class. There are no [...] made to ensure accuracy; however, inadvertent computerized burrer hand errors may be pre sent. documented [...] | | | | | | [place] [address] | | | | | | [phone] | | | | | | | | +--------+ + + + + documented as of this encounter Visit Diagnoses + + | Diagnosis | + + | Symptomatic PVCs - Primary Other premature beats | + + | CAD Coronary atherosclerosis of unspecified type of vessel, [place] or graft | + + | Hyperlipidemia Other and unspecified hyperlipidemia | + + | PACEMAKER, PERMANENT - [employer] 06/14/09GRANT Cardiac pacemaker in situ | + + documented in this encounter
--- OUTSIDE RECORDS SUMMARY | ~2020-06-03 | XMS | Encounter Summary ---
Demographics + + + | Address | [address] | | | [place] [address] | + + + | Home Phone [...] + +------+ + | Care Advanced Manufacturing Associate Name | Role | Phone | + +------+ + | Michael Amanda DO | PCP | | + +------+ + Encounter Details +--------+ + + + + | Date | Type | Department | Care Team | Description | +--------+ + + + + | 06/26/ | Hospital | [facility] | Michael Amanda, | Diplopia | | 2012 | Encounter | MED CTR LABORATORY | DO [address] | | | | | [address] [place] | [place], [place] | | | | | [place], [place] | [address] | | | | | [address] | | | | | | [phone] | | | +--------+ + + + [...] + + + +---------+ + + | [place]-3 Fatty | CAPS, one capsule by | [...] | | | | | | [address] [place], | | | | | | [place] [address] | | | | | | [phone] | | | | | | | [...] + | [facility] | [address] | [place] | [phone] | | [facility] | | [address] | | | - LABORATORY | | | | + + + + + | [facility] | [address] | [place], [place] | | | [facility] | | [address], [facility] | | | - [...] on the Javid | uIU/mL | [facility] | | | | Aldo [...] [address] | [place] | [phone] | | [facility] | | [address] | | | - LABORATORY | | | | + + + + + | [facility] | [address] | [place] | | | [facility] | | [address], [facility] | | | - [...] + | [facility] | [address] | [place], [place] | [phone] | | [facility] | | [address] | | | - LABORATORY | | | | + + + + + | [facility] | [address] | [place], [place] | | | [facility] | | [address] [place] [address] | | | - LABORATORY | | [...] + | [facility] | [address] | [place], [place] | [phone] | | [facility] | | [address] | | | - LABORATORY | | | | + + + + + | [facility] | [address] | [place], [place] | | | [facility] | | [address], [facility] | | | - [...] [address] | [place] | [phone] | | [facility] | | [address] | | | - LABORATORY | | | | + + + + + | [facility] | [address] | [place] | | | [facility] | | [address] [...] + | [facility] | [address] | [place] | [phone] | | [facility] | | [address] | | | - LABORATORY | | | | + + + + + | [facility] | [address] | [place], [place] | | | [facility] | | [id number] [place] [address] | | | - LABORATORY | | | | + + + + + documented in this encounter Visit Diagnoses + + | Diagnosis | + + | Diplopia | + + documented in this encounter"
--- OUTSIDE RECORDS SUMMARY | ~2020-06-03 | XMS | Encounter Summary ---
Demographics + + + | Address | [address] | | | [place] [address] | + + + | Home Phone [...] Providers + +------+ + | Care Icing Mixer Name | Role | Phone | [...] [address] | | | | | | [place], [place] | (Fax) | | | | | [address] | | | | | | [phone] | | | +--------+ + + + [...] | | | | | | [place] [address] | | | | | | [phone] | | | | | | | | +--------+ + + + + documented as of this encounter Visit Diagnoses Not on filedocumented in this encounter"
--- OUTSIDE RECORDS SUMMARY | ~2020-06-03 | XMS | Encounter Summary ---
Demographics + + + | Address | [address] | | | [place] [address] | + + + | Home Phone [...] Team Providers + +------+ + | Care Reiki Practitioner Name | Role | Phone | + +------+ + PCP | Unavailable | + +------+ + Encounter Details +--------+ + + + + | Date | Type | Department | Care Team | Description | +--------+ + + + + | 10/13/ | Hospital | [facility] | | | | 2007 | Encounter | MED CTR EMERGENCY | | | | | | [address] | | | | | | [place] | | | | | | [address] | | | | | | [phone] | | | +--------+ + + + [...] | | | | | | [place] [address] | | | | | | [phone] | | | | | | | | +--------+ + + + + documented as of this encounter Visit Diagnoses Not on filedocumented in this encounter"
--- OUTSIDE RECORDS SUMMARY | ~2020-06-03 | XMS | Encounter Summary ---
Demographics + + + | Address | [address] | | | [place] [address] | + + + | Home Phone [...] Providers + +------+ + | Care Process Technician Name | Role | Phone | [...] + | 06/23/ | Office | [facility] | [place], | Ascending thoracic | | 2016 | Visit | CARDIOLOGY [address] | [place] [address] | aortic aneurysm | | | | [place], | [place], | ([facility]) (Primary Dx); | | | | [place] [address] | [place] [address] | Coronary artery | | | | [phone] | [phone] | disease involving | | | | | | [place] coronary | | | | | | artery of [place] | | | | | | [...] + documented as of this encounter Progress Kailey Junior RN - 06/23/2016 3:49 PM PDT PATIENT [...] of non-critical coronary artery d isease involving [place] coronary artery of [place] heart without angina pectoris, essential h [...] cardiac complaints. He is getting ready to [employer] for a [place] trip [place] [...] Preventative health care Coronary artery disease involving [place] coronary artery of [place] heart without angina pectoris Cannabis abuse, [...] by mouth every evening 90 tablet 3 [facility] [place] [...] twice daily ONE TOUCH DELICA LANCETS [facility] [...] ASSESSMENT: 1. Non-critical Coronary artery disease involving [place] coronary artery of [place] heart wi thout angina pectoris: A. Normal [...] pain. He is in class I-II of [place] Heart Associatio n functional class. There are [...] to go back in 3 days to [place] for an attempt of ablation under [...] this chart may have been created with [employer] voice recognition software. Occasi onal wrong-word or [...] | | | | | | [place] [address] | | | | | | [phone] | | | | | | | [...] the | | | | PDT | [place] coronary | results section. | | | | | artery of [place] | | | | | | [...] MD | | | | | | ([id number]) on 06/23/2016 | | | | | [...] + + | Coronary artery disease involving [place] coronary artery of [place] heart without | | angina pectoris [...]
--- OUTSIDE RECORDS SUMMARY | ~2020-06-03 | XMS | Encounter Summary ---
Demographics + + + | Address | [address] | | | [place] [address] | + + + | Home Phone [...] Providers + +------+ + | Care Supervisor Tan Room Name | Role | Phone | + +------+ + PCP | Unavailable | + +------+ + Encounter Details +--------+ + + + + | Date | Type | Department | Care Team | Description | +--------+ + + + + | 12/16/ | [facility] | [facility] | Naresh Mckeon | | | 2010 | Encounter | MED CTR SLEEP | MD Chaya [address] | | | | | CENTER [address] | [place] | | | | | [place] | [place] [address] | | | | | [address] | [phone] | | | | | [phone] | | | +--------+ + + + [...] | | | | | | [place] [address] | | | | | | [phone] | | | | | | | | +--------+ + + + + documented as of this encounter Visit Diagnoses Not on filedocumented in this encounter"
--- OUTSIDE RECORDS SUMMARY | ~2020-06-03 | XMS | Encounter Summary ---
Demographics + + + | Address | [address] | | | [place] [address] | + + + | Home Phone [...] Providers + +------+ + | Care Sports Statistician Name | Role | Phone | [...] + | 12/21/ | Office | [facility] | [place], | Chest pain (Primary | | 2013 | Visit | CARDIOLOGY [address] | [address] | Dx); Symptomatic | | | | [place], | [place], | PVCs; | | | | [place] [address] | [place] [address] | Hyperlipidemia; | | | | [phone] | [phone] | Hypertension; | | | | | [...] this time to see a specialist in [place] and he was to follow up with [...] MOUTH EVERY DAY 30 table t 5 [place]-3 Fatty Acids (SALMON OIL-1000 PO) CAPS, one [...] to go back in 3 days to [place] for an attempt of ablation under [...] weeks. He is in class II of [place] Heart Association funct ional class. There are [...] made to ensure accuracy; however, inadvertent computerized corncob pipe supervisor errors may be pre sent. documented [...] | | | | | | [place] [address] | | | | | | [phone] | | | | | | | [...] of unspecified type of vessel, | | [place] or graft | + + documented in this encounter
--- OUTSIDE RECORDS SUMMARY | ~2020-06-03 | XMS | Encounter Summary ---
Demographics + + + | Address | [address] | | | [place] [address] | + + + | Home Phone [...] Team Providers + +------+ + | Care Produce Buyer Name | Role | Phone | + +------+ + PCP | Unavailable | + +------+ + Encounter Details +--------+ + + + + | Date | Type | Department | Care Team | Description | +--------+ + + + + | 11/14/ | [facility] | [facility] | William Hirsch | | | 1999 | Encounter | MED CTR EMERGENCY | MD Cristobal [address] | | | | | CENTER [address] | [address] [place] | | | | | [place] | [place] [address] | | | | | [address] | [phone] | | | | | [phone] | | | +--------+ + + + [...] | | | | | | [place] [address] | | | | | | [phone] | | | | | | | | +--------+ + + + + documented as of this encounter Visit Diagnoses Not on filedocumented in this encounter"
--- OUTSIDE RECORDS SUMMARY | ~2020-06-03 | XMS | Encounter Summary ---
Demographics + + + | Address | [address] | | | [place] [address] | + + + | Home Phone [...] | ER FUP | [address] | [address] | | | | | Procedures | [place], | [place], | | | | | FUP | [place] [address] | [place] [address] | | | | | | Phone: | Phone: | | | | | | [phone] | [phone] | | | | | | Fax: | Fax: | | | | | | [phone] | [phone] | +--------+--------+ + + + + Encounter Details +--------+---------+ + + + | Date | Type | Department | Care Team | Description | +--------+---------+ + + + | 02/11/ | Office | [facility] [place] | [place], | Coronary artery | | 2017 | Visit | CARDIOLOGY [address] | [place] [address] | disease involving | | | | [place], | [place], | [place] coronary | | | | [place] [address] | [place] [address] | artery of [place] | | | | [phone] | heart without angina | | | [...] of non-critical coronary artery d isease involving [place] coronary artery of [place] heart without angina pectoris, essential h ypertension, [...] him. He sleeps on 1 pillow at [facility] without any shortness of breath. Overall, [...] Preventative health care Coronary artery disease involving [place] coronary artery of [place] heart without angina pectoris Cannabis abuse, daily [...] 3RD DOSE, CALL 911 100 tablet 3 [place]-3 Fatty Acids (SALMON OIL-1000 PO) CAPS, one [...] was found Confirmed by ANGELA MARADIAGA MD ([id number]) on 01/25/2017 6:45:26 AM LAB RESULTS reviewed [...] PLTEX 162 11/05/2016 I reviewed [facility] [...] is in class I of t he [place] Heart Association functional class. On physical examination there are no signs of fluid overload. 2. Non-critical Coronary artery disease involving [place] coronary a rtery of [place] heart without angina pectoris: A. Normal exercise sestamibi stress test on 05/25/09. LVEF by [facility] ed SPECT was 53%. B. Echocardiogram [...] go back in 3 days to [place] for an attempt of ablation under general [...] normal stable device function. Estimated remaining [facility] longevity is 3.5 years.. 5. Lightheadedness [...] this chart may have been created with [employer] voice recognition software. Occasi onal wrong-word [...] | 10/30/ | Office | Cardiology | [place], | | | 2019 | Visit | | PARISA [place] [address] | | | | | | [place], | | | | | | [place] [address] | | | | | | [phone] | | | | | | | | +--------+ + + + + documented as of this encounter Visit Diagnoses + + | Diagnosis | + + | Coronary artery disease involving [place] coronary artery of [place] heart without | | angina pectoris - Primary | + + | Essential hypertension with goal blood pressure less than 130/80 | + + | Hyperlipidemia, mixed Mixed hyperlipidemia | + + documented in this encounter
--- OUTSIDE RECORDS SUMMARY | ~2020-06-03 | XMS | Encounter Summary ---
Demographics + + + | Address | [address] | | | [place] [address] | + + + | Home Phone [...] Team Providers + +------+ + | Care Celery Cutter Name | Role | Phone | [...] | 06/17/ | Telephone | [facility] [place] | [place], | Lab Order (due for | | 2015 | | CARDIOLOGY [address] | [place] [address] | fasting labs prior | | | | [place], | [place], | to appt) | | | | [place] [address] | [place] [address] | | | | | [phone] | [phone] | | | | | | | [...] stated Lab order s were not at [facility]. Faxed order to [facility] in [place]. Spoke to Geri from [facility] and confirmed she received the order. Patient will draw labs on 06/20/16.Electronically sign ed by Shea Metcalf at 06/19/2016 9:04 AM PDTTelephone Encounter - Nereida Lambert - 6 10:02 AM PDTPatient returned Jay's call and was notified of fasting blood work due prior to his follow up on 06-23-16. Patient requested that orders be faxed to [facility] in [place] and he plans to do blood work tomorrow morning. Forwarding to [place] to fax orders. Petty armendariz signed by [...] | | | | | | [place] [address] | | | | | | [phone] | | | | | | | | +--------+ + + + + documented as of this encounter Visit Diagnoses + + | Diagnosis | + + | Hyperlipidemia, mixed - Primary Mixed hyperlipidemia | + + documented in this encounter"
--- OUTSIDE RECORDS SUMMARY | ~2020-06-03 | XMS | Encounter Summary ---
Demographics + + + | Address | [address] | | | [place] [address] | + + + | Home Phone [...] Providers + +------+ + | Care Hospital Insurance Representative Name | Role | Phone | [...] | | | Ascending | [place] | Jaimee [place] | | | | | aortic | [place] | [place], | | | | | aneurysm | [address] | [place] [address] | | | | | (HCC) | [place] | Phone: | | | | | Abdominal | [place], | [phone] | | | | | aortic | [place] | Fax: | | | | | aneurysm | [address] | [phone] | | | | | (AAA) | Phone: | | | | | | without | [phone] | | | | | | rupture | Fax: | | | | | | (HCC) | [phone] | | | | | | Procedures [...] | unspecified | MD Martell | [address] | | | | | type ER | [address] | [place] [address] | | | | | FUP | [place] | [place], | | | | | Procedures | [place], [place] | [place] [address] | | | | | FUP - SUW & | [address] | Phone: | | | | | MISHA PT, LAST | Phone: | [phone] | | | | | SEEN | [phone] | Fax: | | | | | 08-24-18 | Fax: | [phone] | | | | | | [phone] | | +--------+ + + + + + Encounter Details +--------+---------+ + + + | Date | Type | Department | Care Team | Description | +--------+---------+ + + + | 01/11/ | Office | [facility] | [place], | Coronary artery | | 2018 | Visit | CARDIOLOGY [address] | PARISA [place] [address] | disease involving | | | | [place], | [place], | h[place] coronary | | | | [place] [address] | [place] [address] | artery of hoh | | | | [phone] | heart without angina | | | [...] this encounter Patient Instructions Patient Instructions Jennifer February, Environmental Systems Coordinator - 01/11/2019 12:45 PM PST 1. [...] Check-in time: 1. Check in at the [facility]. 2. Do not [...] procedure. 6. Make sure you have a local company flatbed truck driver to take you home. Your local company flatbed truck driver will also need to sign [...] line at and ask for nursing supervisor files t o let them know you are cancelling . Blood test: Non-fasting Date Due: same day as CTA Where to go for labs: [facility]- [address] [facility]. CTA of Chest and Abdomen: Date: Check-In [...] of non-critical coronary artery d isease involving hoh coronary artery of hoh heart without angina pectoris, essential h ypertension, [...] Preventative health care Coronary artery disease involving hoh coronary artery of hoh heart without angina pectoris Cannabis abuse, daily [...] 3RD DOSE, CALL 911 100 tablet 3 [place]-3 Fatty Acids (SALMON OIL-1000 PO) CAPS, one capsule by mouth daily twice daily ondansetron (ZOFRAN ODT) 4 mg disintegrating tablet Take 4 mg by mouth. ONE TOUCH DELICA LANCETS [facility] [...] was found Confirmed by ANGELA MARADIAGA MD ([id number]) on 01/03/2019 8:10:39 PM LAB RESULTS reviewed during visit today primarily from [facility]: LIPID Lab Results Component Value Date [...] the HPI. RESULTS- I reviewed reports from [facility]: Xr Chest Ap Portable Result Date: [...] ASSESSMENT: 1. Non-critical Coronary artery disease involving hoh coronary artery of hoh heart [facility] angina pectoris: A. Normal exercise [...] Symptoms with moderate exertion of t he [place] Heart Association functional class. Heart failure stage [...] [facility] Patient had spontaneous PVC's [...] go back in 3 days t [facility] [place] for an attempt of ablation under general [...] he has any further problems Christine Clemente Environmental Systems Coordinator am acting as a scribe on behalf of, and in the pres ence of PARISA Lomas. - Reji Newman 01/11/2019 13:46 Janeen Clemente ARNP, personally performed the services described in this documentati on, as scribed in my presence and it is both accurate and complete. -PARISA Lomas 01/11/2019 Portions of this chart may have been created with [employer] voice recognition software. Occasi onal wrong-word or [...] | | | | | | [place] [address] | | | | | | [phone] | | | | | | | [...] + + | Coronary artery disease involving hoh coronary artery of hoh heart without | | angina pectoris - [...]
--- OUTSIDE RECORDS SUMMARY | ~2020-06-03 | XMS | Encounter Summary ---
Demographics + + + | Address | [address] | | | [place] [address] | + + + | Home Phone [...] Team Providers + +------+ + | Care Concession Worker Name | Role | Phone | [...] + | 08/30/ | Telephone | [facility] | [place], | Other (test results) | | 2014 | | CARDIOLOGY [address] | Janeen DISBURSING AGENT [address] | | | | | [place], | [place], | | | | | [place] [address] | [place] [address] | | | | | [phone] | [phone] | | | | | | | [...] | | | | | | [place] [address] | | | | | | [phone] | | | | | | | | +--------+ + + + + documented as of this encounter Visit Diagnoses Not on filedocumented in this encounter"
--- OUTSIDE RECORDS SUMMARY | ~2020-06-03 | XMS | Encounter Summary ---
Demographics + + + | Address | [address] | | | [place] [address] | + + + | Home Phone [...] Providers + +------+ + | Care Advertising Editor Name | Role | Phone | [...] + | 07/12/ | Office | [facility] | Michael Amanda, | Preventative health | | 2013 | Visit | MEDICINE [place] | DO [address] | care (Primary Dx); | | | | [address] | [place], [place] | Prostate cancer | | | | [place], [place] | [address] | screening; | | | | [address] | | Hypercholesterolemia | | | | [phone] | | ; Hypertension; | | | [...] clear cause was found. He has seen mutual fund accountant and has a rechec k plan. Possible [...] W | | | | | | [place], | | | | | | [place] [address] | | | | | | [phone] | | | | | | | [...] Primary Routine [facility] | care facility | [...]
--- OUTSIDE RECORDS SUMMARY | ~2020-06-03 | XMS | Encounter Summary ---
Demographics + + + | Address | [address] | | | [place] [address] | + + + | Home Phone [...] Providers + +------+ + | Care Director Stars Name | Role | Phone | [...] | MD [address] | [address] | | | | | hypertension | [address] | [place], | | | | | Sick sinus | [address] | [place] | | | | | syndrome | [place], [place] | [address] | | | | | (HCC) | [address] | Phone: | | | | | Ventricular | Phone: | [phone] | | | | | premature | [phone] | Fax: | | | | | depolarizati | Fax: | [phone] | | | | | on | [phone] | | | | | | Tachycardia, | | | | | | | unspecified | | | | | | | | | | | | | | Atherosclero | | | | | | | tic heart | | | | | | | disease of | | | | | | | [place] | | | | | | | [...] + | 05/01/ | Procedure | [facility] | Margarito Jaeger | Pacemaker | | 2020 | visit | CARDIOLOGY [address] | MD Fabrice [address] | reprogramming/check | | | | [place], | [address] [place] | DO NOT DELETE | | | | [place] [address] | [place] [address] | (Primary Dx); | | | | [phone] | [phone] | Pacemaker; | | | | | [...] and has received error codes. Referred to [facility] [employer] Stay Connected line. Monthly remote monitoring. Device interrogation due in office at [facility]. documented in t his encounter Plan of [...] | | | | | | [place] [address] | | | | | | [phone] | | | | | | | [...] Avina | MO[place] | | MD Heide 05/01/2020 3:04 PM [...] | monitoring.Device interrogation due in office at [facility]. | | |Data collected by Shabana Lama [...] received | | |error codes. Referred to [employer] Stay Connected line. Monthly | | |remote monitoring. | | |Device interrogation due in office at [facility]. | | | | | + + + + + | Procedure Note | + + | Margarito Jaeger MD - 05/01/2020 2:30 PM PDT PATIENT NAME: Moe Bradley | | Laura : 1960: AGE: 60 y.o.Pacemaker Evaluation ReportJune 10, | | 2020Reason for evaluation: routineIndication for pacemaker: Sinoatrial node dysfunction | | (HCC) (I49.5, 427.81); Pacemaker (Z95.0, V45.01); Pacemaker reprogramming/check [...] and has received error codes. Referred to [facility] Stay | | Connected line. Monthly remote monitoring.Device interrogation due in office at [facility]. | |Underlying rhythm: Sinus rhythm 72-75 beats. [...] and has received error codes. Referred to [facility] Stay Connected line. Monthly remote monitoring. | |Device interrogation due in office at [facility]. | + + + +---------+ + + [...]
--- OUTSIDE RECORDS SUMMARY | ~2020-06-03 | XMS | Encounter Summary ---
Demographics + + + | Address | [address] | | | [place] [address] | + + + | Home Phone [...] Providers + +------+ + | Care Inker And Opaquer Name | Role | Phone | + [...] [address] | | | | | [place], | [place], | | | | | [place] [address] | [place] [address] | | | | | [phone] | [phone] | | | | | | | [...] | | | | | | [place] [address] | | | | | | [phone] | | | | | | | | +--------+ + + + + documented as of this encounter Visit Diagnoses Not on filedocumented in this encounter"
--- OUTSIDE RECORDS SUMMARY | ~2020-06-03 | XMS | Encounter Summary ---
Demographics + + + | Address | [address] | | | [place] [address] | + + + | Home Phone [...] Providers + +------+ + | Care Rag Cutting Machine Feeder Name | Role | Phone [...] + | 03/27/ | Telephone | [facility] | Anshumarianatesha, Daljit, | Other (Missed | | 2019 | | CARDIOLOGY [address] | MD [address] | [facility]) | | | | [place], | [place], | | | | | [place] [address] | [place] [address] | | | | | [phone] | [phone] | | | | | | | [...] [place], | | | | | | [place] [address] | | | | | | [phone] | | | | | | | | +--------+ + + + + documented as of this encounter Visit Diagnoses Not on filedocumented in this encounter"
--- OUTSIDE RECORDS SUMMARY | ~2020-06-03 | XMS | Encounter Summary ---
Demographics + + + | Address | [address] [place] [address] [address] | | | [place] [address] | + + + | Home Phone [...] [place] | | | | | [address] | | + + + + + Care Team Providers + +------+ + | Care Policy Issue Clerk Name | Role | Phone | [...] | | [address] | [place], [place] | | | | | for Health and | [address] | | | | | [facility], [facility] 2 | [phone] | | | | | [place], [place] | | | | | | [address] | | | | | | [phone] | | | +--------+ + + + [...]
--- OUTSIDE RECORDS SUMMARY | ~2020-06-03 | XMS | Encounter Summary ---
Demographics + + + | Address | [address] | | | [place] [address] | + + + | Home Phone [...] Providers + +------+ + | Care Criminal Analyst Name | Role | Phone | + +------+ + PCP | Unavailable | + +------+ + Encounter Details +--------+ + + + + | Date | Type | Department | Care Team | Description | +--------+ + + + + | [facility] | Jonathan, | | | 2008 | Encounter | MED CTR EMERGENCY | Martell Cr MD [address] | | | | | CENTER [address] | [address] | | | | | [place] | [place] [address] | | | | | [address] | [phone] | | | | | [phone] | | | +--------+ + + + [...] | | | | | | [place] [address] | | | | | | [phone] | | | | | | | | +--------+ + + + + documented as of this encounter Visit Diagnoses Not on filedocumented in this encounter"
--- OUTSIDE RECORDS SUMMARY | ~2020-06-03 | XMS | Encounter Summary ---
Demographics + + + | Address | [address] [place] [address] [address] | | | [place] [address] | + + + | Home Phone [...] | + + + + + | Rachle [address] | [address] | [place] | | | | | [address] | | + + + + + Care Team Providers + +------+ + | Care Games Dealer Name | Role | Phone | [...] | | 2019 | | Center at [facility] [address] | MD [address] | | | | | [address] | [place], [place] | | | | | [facility] and | [address] | | | | | [facility], [facility] 2 | [phone] | | | | | [place], [place] | | | | | | [address] | | | | | | [phone] | | | +--------+ + + + [...]
--- OUTSIDE RECORDS SUMMARY | ~2020-06-03 | XMS | Encounter Summary ---
Demographics + + + | Address | [address] | | | [place] [address] | + + + | Home Phone [...] Providers + +------+ + | Care Diamond Expert Name | Role | Phone | [...] + + | 12/23/ | Telephone | [facility] | Emmanuel Daniel MD | Other (Needs to know | | 2017 | | GASTROENTEROLOGY | [address], [place] | what he can eat | | | | [address] [place] | [address] [place], [place] | today) | | | | [address] [place] | [address] | | | | | [address] | | | | | | [phone] | | | +--------+ + + + [...] | | | | | | [place] [address] | | | | | | [phone] | | | | | | | | +--------+ + + + + documented as of this encounter Visit Diagnoses Not on filedocumented in this encounter"
--- OUTSIDE RECORDS SUMMARY | ~2020-06-03 | XMS | Encounter Summary ---
Demographics + + + | Address | [address] | | | [place] [address] | + + + | Home Phone [...] Providers + +------+ + | Care Oil Field Caser Name | Role | Phone | + [...] Results | | 2012 | | MEDICINE [place] | [address] | | | | | [address] | [place] | | | | | [place], [place] | [address] | | | | | [address] | | | | | | [phone] | | | +--------+ + + + [...] Notes Telephone Encounter - Aaliyah Tello - 06/27/2013 8:09 AM PDTCalled patient and relayed me ssage per Dr. Holm. Patient verbalized understanding. elephone Encounter - Jacek Holm MD - 06/26/2013 6:0 7 PM PDTWill you please let Mr Sanchez know that his blood tests were normal - no signs of in flammation or thyroid disease. Thanks. documented in this e ncounter Plan of [...] | | | | | | [place] [address] | | | | | | [phone] | | | | | | | | +--------+ + + + + documented as of this encounter Visit Diagnoses Not on filedocumented in this encounter"
--- OUTSIDE RECORDS SUMMARY | ~2020-06-03 | XMS | Encounter Summary ---
Demographics + + + | Address | [address] [place] [address] [address] | | | [place] [address] | + + + | Home Phone [...] [place] | | | | | [address] | | + + + + + Care Team Providers + +------+ + | Care Occupational Therapist'S Assistant Name | Role | Phone | [...] [facility] | [facility] | | | | | [address] | [place] [address] | | | | | [address] | | | | | | [place], [address] [place] [address] | | | | | | [place], [place] | | | | | | [address] | | | | | | [phone] | | | +--------+ + + + [...] view image for the detailed interpretation from [employer] results. | CARDIOLOGY | + + + + + + + + | Performing | Address | City/State/Zipcode | Phone Number | | Organization | | | | + + + + + | [facility] | [address] | [place], [place] | | | CARDIOLOGY | [address] | [address] | | + + + + + documented in this encounter Visit Diagnoses Not on filedocumented in this encounter"
--- OUTSIDE RECORDS SUMMARY | ~2020-06-03 | XMS | Encounter Summary ---
Demographics + + + | Address | [address] | | | [place] [address] | + + + | Home Phone [...] | + + +---------+ + | Nadine Patelgalenvrasha | ECON | Unknown | | + + +---------+ + Care Team Providers + +------+ + | Care Lean Six Sigma Black Belt Name | Role | Phone | + [...] + + | 01/28/ | Refill | [facility] | Kirk French | Medication Refill | | 2019 | | [facility] | MD Brea [address] | | | | | PRIMARY CARE [address] | [address] | | | | | [address] | [place] [address] | | | | | [place], [place] | [phone] | | | | | [address] | | | | | | [phone] | | | +--------+--------+ + + + [...] | | | | | | [place] [address] | | | | | | [phone] | | | | | | | | +--------+ + + + + documented as of this encounter Visit Diagnoses Not on filedocumented in this encounter"
--- OUTSIDE RECORDS SUMMARY | ~2020-06-03 | XMS | Encounter Summary ---
Demographics + + + | Address | [address] | | | [place] [address] | + + + | Home Phone [...] Providers + +------+ + | Care Court Orderly Name | Role | Phone | + [...] | Ascending | Silvia, | [address] | | | | | aortic | PARISA Vernon | [place], | | | | | aneurysm | [address] | [place] | | | | | ([facility]) | [address] [place] | [address] | | | | | Procedures | [place], | Phone: | | | | | ECHO | [place] | [phone] | | | | | Complete | [address] | Fax: | | | | | | Phone: | [phone] | | | | | | [phone] | | | | | | | Fax: | | | | | | | [phone] | | +--------+--------+ + + + + [...] | MD [address] | [address] | | | | | hypertension | [address] | [place], | | | | | Sick sinus | [address] | [place] | | | | | syndrome | [place] | [address] | | | | | (HCC) | [address] | Phone: | | | | | Ventricular | Phone: | [phone] | | | | | premature | [phone] | Fax: | | | | | depolarizati | Fax: | [phone] | | | | | on | [phone] | | | | | | Tachycardia, | | | | | | | unspecified | | | | | | | | | | | | | | Atherosclero | | | | | | | tic heart | | | | | | | disease of | | | | | | | ass[place]ibo[place] and [place] tribes | | | | | | | [...] + + | 01/01/ | Office | [facility] | [place], | Ascending thoracic | | 2020 | Visit | CARDIOLOGY [address] | PARISA Vernon [address] | aortic aneurysm | | | | [place], | [address], | (HCC) (Primary Dx); | | | | [place] [address] | [place] [address] | Coronary artery | | | | [phone] | [phone] | disease involving | | | | | | ass[place] tribes coronary | | | | | | artery of ass[place] and [place] tribes | | | | | | heart [...] encounter Patient Instructions Patient Instructions Vidhi Gillespie, Water Softener Servicer - 01/01/2020 7:30 AM PST1. Esau delmie [...] coronary artery disea se involving ass[place] tribes coronary artery of [place] tribes heart without angina pectoris, essential hyper tension, [...] for weight loss, he was defer to [facility], [facility] [...] care Coronary artery disease involving ass[place] and [place] tribes coronary artery of [place] tribes heart without angina pectoris Cannabis abuse, daily [...] ONE TABLET UNDER THE TONGUE EVERY [address] NUTES NEEDED FOR CHEST PAIN 250 tablet 0 nortriptyline (PAMELOR) 25 mg capsule Take 25 mg by mouth. [place]-3 Fatty Acids (SALMON OIL-1000 PO) CAPS, one capsule by mouth daily twice daily ondansetron (ZOFRAN ODT) 4 mg disintegrating tablet Take 4 mg by mouth every 8 hours as needed for Nausea. ondansetron (ZOFRAN) 4 mg tablet Take 4 mg by mouth. ONE T[facility]CH [facility] [...] was found Confirmed by SYDNI SINGLETARY MD ([id number]) on 06/06/2019 3:43:10 PM LAB RESULTS reviewed during visit today primarily from [facility]: LIPID Lab Results Component Value Date CHOL [...] BNP 48 06/02/2019 I reviewed records from [facility] for office visit on 06/06/2019 wh ich is summarized in the HPI. RESULTS- I reviewed reports from [facility]: No results found. Above data and testing is reviewed this visit; testing below is historical data unless othe rwise specified. ASSESSMENT: 1. Non-critical Coronary artery disease involving assinibo[place] and [place]ros vent[place] tribes coronary artery of assin[place] and [place] vent[place] tribes heart wi thout angina pectoris: A.Normal exercise [...] symptoms; no limitations of activities of the [place] [employer] functional class. Heart failure [...] performed by Dr Juan Diego Gambino at [facility] on 01/30/2013.Patient had spontaneous PVC'sfr om [...] to go back in 3 days to [place] for an attempt of ablation under general [...] advised to having his MRI done in [place] at [facility] which has a repeat MRI protocol for such situations. Patient also will need echocardiogram for ks s next appointment to evaluate his ascending [...] of [facility]ync[facility] thought to have [facility]ovagal [facility]. B.Today, [...] advised to having his MRI done in [place] at [facility] which has a repeat MRI protocol for such situations. Patient also will need echocardiogram for his next appointmen t to evaluate his ascending aorta Vidhi Clemente, Water Softener Servicer am acting as a scribe on behalf of, and in the prese nce of PARISA Lomas. - Vidhi Gillespie, Water Softener Servicer 01/01/2020 5:29 PM Janeen Clemente ARNP, personally performed the services described in this documentati on, as scribed in my presence and it is both accurate and complete. -PARISA Lomas 01/01/2020 Portions of this chart may have been created with [email or web address] voice recognition software. Occasi onal wrong-word or [...] W | | | | | | [place], | | | | | | [place] [address] | | | | | | [phone] | | | | | | | [...] | | | | | | n [place] | | | | | + +--------+ [...] | Coronary artery disease involving assiniboine and gros ventre tribes coronary artery of assiniboine and gros ventre tribes heart without | | angina pectoris | [...]
--- OUTSIDE RECORDS SUMMARY | ~2020-06-03 | XMS | Encounter Summary ---
Demographics + + + | Address | [address] | | | [place] [address] | + + + | Home Phone [...] Team Providers + +------+ + | Care Interlocking Installer Name | Role | Phone | + +------+ + PCP | Unavailable | + +------+ + Encounter Details +--------+ + + + + | Date | Type | Department | Care Team | Description | +--------+ + + + + | 02/21/ | [facility] | [facility] | Cristy Braun | | | 2008 | Encounter | MED CTR EMERGENCY | MD Ronald [address] | | | | | CENTER [address] | [facility], | | | | | [place] | [place] [address] | | | | | [address] | [phone] | | | | | [phone] | | | +--------+ + + + [...] | | | | | | [place] [address] | | | | | | [phone] | | | | | | | | +--------+ + + + + documented as of this encounter Visit Diagnoses Not on filedocumented in this encounter"
--- OUTSIDE RECORDS SUMMARY | ~2020-06-03 | XMS | Encounter Summary ---
Demographics + + + | Address | [address] | | | [place] [address] | + + + | Home Phone [...] Providers + +------+ + | Care Core Microarchitect Name | Role | Phone | + +------+ + PCP | Unavailable | + +------+ + Encounter Details +--------+ + + + + | Date | Type | Department | Care Team | Description | +--------+ + + + + | 05/28/ | [facility] | [facility] | Evan Gandara MD | | | 2008 | Encounter | MED CTR LABORATORY | [address] [facility] | | | | | [address] [place] | [place] | | | | | [place] | [address] | | | | | [address] | | | | | | [phone] | | | +--------+ + + + [...] | | | | | | [place] [address] | | | | | | [phone] | | | | | | | | +--------+ + + + + documented as of this encounter Visit Diagnoses Not on filedocumented in this encounter"
--- OUTSIDE RECORDS SUMMARY | ~2020-06-03 | XMS | Encounter Summary ---
Demographics + + + | Address | [address] | | | [place] [address] | + + + | Home Phone [...] Team Providers + +------+ + | Care Canteen Attendant Name | Role | Phone | + +------+ + PCP | Unavailable | + +------+ + Encounter Details +--------+ + + + + | Date | Type | Department | Care Team | Description | +--------+ + + + + | 08/17/ | Abstract | [facility] | Darion Holden DO | | | 2011 | | Anti-Coagulation | [address] | | | | | Clinic | [facility] PRACTICE | | | | | | [place] | | | | | | [address] | | | | | | [phone] | | | | | | | [...] | | | | | | [place] [address] | | | | | | [phone] | | | | | | | | +--------+ + + + + documented as of this encounter Visit Diagnoses Not on filedocumented in this encounter"
--- OUTSIDE RECORDS SUMMARY | ~2020-06-03 | XMS | Encounter Summary ---
Demographics + + + | Address | [address] | | | [place] [address] | + + + | Home Phone [...] Providers + +------+ + | Care Box Storage Worker Name | Role | Phone | + +------+ + | Kirk French MD | PCP | | + +------+ + Encounter Details +--------+ + + + + | Date | Type | Department | Care Team | Description | +--------+ + + + + | 01/05/ | Orders Only | [facility] | Emmanuel Daniel MD | | | 2019 | | [facility] | [address], [place] | | | | | PATHOLOGY [address] | [address] [facility] [place] | | | | | BL[address] [place], [place] | [address] | | | | | [address] | | | | | | [phone] | | | +--------+ + + + [...] | | | | | | [place] [address] | | | | | | [phone] | | | | | | | [...] | | | (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 [facility]:C3NR GROSS DESCRIPTION: A. The | | | specimen, labeled "[place], duodenal biopsy" is received in formalin | | | and consists of seven 0.1-0.5 cm lin fragments. Entirely submitted in | | | (A1). B. The specimen, labeled "[place], right colon" is received | | | in formalin and consists of six 0.2-0.3 cm lin fragments. Entirely | | | submitted in (B1). C. The specimen, labeled "[place], left colon" | | | is received in formalin and consists of six 0.2-0.3 cm lin-pink | | | fragments. Entirely submitted in (C1). am:LEWIS:portillo PERFORMING | | | LABORATORY: The technical component was performed by [facility] | | | [facility], [address] [facility] [address] (Rack Puncher: | | | Kailey Stafford MD; CLIA# [id number]). Professional interpretation was | | | performed by [facility], [facility], [address] | | | [place] [address] (Rack Puncher: Ishaan | | | Anthony Dao; CLIA#: [id number]). Diagnostician: Ishaan Dao | | | Pathologist [...]
--- OUTSIDE RECORDS SUMMARY | ~2020-06-03 | XMS | Encounter Summary ---
Demographics + + + | Address | [address] | | | [place] [address] | + + + | Home Phone [...] Team Providers + +------+ + | Care Rubble Placer Name | Role | Phone | [...] | Palpitations | [address] | | | | | Procedures | [address] | [address] [place] | | | | | ECHO | [place], | [place], [place] | | | | | Complete | [place] [address] | [address] | | | | | | Phone: | Phone: | | | | | | [phone] | [phone] | | | | | | Fax: | Fax: | | | | | | [phone] | [phone] | +--------+--------+ + + + + Encounter Details +--------+ + + + + | Date | Type | Department | Care Team | Description | +--------+ + + + + | 12/30/ | Hospital | [facility] | SunshinecherelleDaljit, | Palpitations | | 2012 - | Encounter | MED CTR XRAY [address] | | | | | [address] [place] | [address] [place], | | | 01/01/ | | [place] [address] | [place] [address] | | | 2012 | | [phone] | | | | | | | [...] + + + +---------+ + + | [place]-3 Fatty | CAPS, one capsule by | [...] | | | | | | [place] [address] | | | | | | [phone] | | | | | | | [...] | [facility] Diagnostic Imaging | [place] | | Department [address] [place] [address] | [facility] | | [ rep ct street[address]] [ rep ct [facility] | | st zip] Signed | - IMAGING | | | | | Patient Name: MOE GAY W | | | Physician: MIGUELINA : 1960 Age: 52 Sex: M Unit | | | #: [id number] Exam Date: 12/30/12 Location: | | | G Report #: [id number] Page: | | | %(RAD)RES..mtdd.print.filter("pg") of %(RAD) | | | RES..mtdd.print.filter("tpg") | | | | | | Accession Number: [id number] | | | E C H O C A R D I O G R A P H Y R E P O R T | | | HEIGHT: 76" WEIGHT: 270# | | | LOST CHARGE CARD CLERK: JAMEEL REFERRING DR: TIMMY DRAEK DR: | | | TIMMY DIAGNOSIS: PALPITATIONS [...] | | | Transcribed Date/Time: 12/30/2012 16:34 Foreign Language Teacher: | | | <<Signature on File>> | | | Suwong | | | MD CLEOPATRA Singletary FAS01/02/13 0955 <Electronically signed by | | | Daljit Singletary MD, [facility], FACP, FASNanette, FASNC> Daljit | | | MD CLEOPATRA Singletary [facility]US[facility]ette 12/30/12 1608 Foreign Language Teacher: [employer](Cabeo)karyx | | | Ajmoeczueapin25/08/13 1634 Daljit Singletary MD FACC | | | FASE | | + + + + + + + + | Performing | Address | City/State/Zipcode | Phone Number | | Organization | | | | + + + + + | [facility] | [address] | [place] | [phone] | | [facility] | | [address] | | | - IMAGING | | | | + + + + + documented in this encounter Visit Diagnoses + + | Diagnosis | + + | Palpitations | + + documented in this encounter
--- OUTSIDE RECORDS SUMMARY | ~2020-06-03 | XMS | Encounter Summary ---
Demographics + + + | Address | [address] | | | [place] [address] | + + + | Home Phone [...] Team Providers + +------+ + | Care Burglar Alarm Installer Name | Role | Phone [...] | 06/06/ | Telephone | [facility] | [place], | Other (Cardiac | | 2019 | | CARDIOLOGY [address] | Janeen, REVENUE TAX SPECIALIST [address] | Clearance) | | | | [place], | [place], | | | | | [place] [address] | [place] [address] | | | | | [phone] | [phone] | | | | | | | [...] 06/14/2019 8:53 AM Sarthak note faxed to [phone], arlette Galeas. ...........................................Magi Farr RN on 0 [...] RN - 06/06/2019 12:36 PM PDTStephenidi from [facility] to josh boyce cardiac clearance for this patient scheduled to have Left shoulder total arthroplasty o n 06/13/19. Routing to Janeen as she is seeing patient this afternoon in clinic. Please fax chart note to Gudelia at [phone].............................................Kasie Ashley RN on 06/06/19 at 12:38 documented [...] | | | | | | [place] [address] | | | | | | [phone] | | | | | | | | +--------+ + + + + documented as of this encounter Visit Diagnoses Not on filedocumented in this encounter"
--- OUTSIDE RECORDS SUMMARY | ~2020-06-03 | XMS | Encounter Summary ---
Demographics + + + | Address | [address] | | | [place] [address] | + + + | Home Phone [...] Team Providers + +------+ + | Care Edger Machine Operator Name | Role | Phone | + +------+ + | Kirk French MD | PCP | | + +------+ + Encounter Details +--------+---------+ + + + | Date | Type | Department | Care Team | Description | +--------+---------+ + + + | 12/24/ | Surgery | [facility] | Emmanuel Daniel MD | EGD | | 2018 | | MED CTR MP INTRA OP | [address], [place] | | | | | [address] | [address] [place], [place] | | | | | [place], [place] | [address] | | | | | [address] | | | | | | [phone] | | | +--------+---------+ + + + [...] + + +---------+ + + | [place]-3 Fatty | CAPS, one capsule by | [...] any noct urnal symptoms. He was in [facility] 2 years ago and required hospitalization [...] severe diarrhea probable infective occurring while visiting [facility] Diarrhea etiology and significance to be [...] Endoscopy Patient: Moe Sanchez : 1960 Acct: [id number] Exam Date: Sunday, December 24, 2017 Doctor: [...] If unable to reach your physician, call [facility] Emergency Department at [address] Your [...] Exams Patient: Moe Sanchez : 1960 Acct: [id number] Exam Date: Sunday, December 24, 2017 Doctor: [...] If unable to reach your physician, call [facility] Emergency Department at [address] Your [...] W | | | | | | [place], | | | | | | [place] [address] | | | | | | [phone] | | | | | | | [...] + | Performed at: 01 - [place] [address], | REFERENCE LAB | | [place], [place] [id number] Material Control Associate: William Andrew MD, Phone: | [facility] | | [phone] | | + + + + + + + + | Performing | Address | City/State/Zipcode | Phone Number | | Organization | | | | + + + + + | REFERENCE LAB | [address] | [place], [place] | [phone] | | [facility] | [address] | [address] | | + + + + + [...] [address] | [place] | [phone] | | [facility] | | [address] | | | - LABORATORY | | [...] [address] | [place] | [phone] | | [facility] | | [address] | | | - LABORATORY | | [...] [address] | [place] | [phone] | | [facility] | | [address] | | | - LABORATORY | | [...] + + | Performed at: 01 - [facility] [address], | REFERENCE LAB | | [place], [place] [id number] Material Control Associate: William Andrew MD, Phone: | [facility] | | [phone] | | + + + + + + + + | Performing | Address | City/State/Zipcode | Phone Number | | Organization | | | | + + + + + | REFERENCE LAB | [address] | [place], [place] | [phone] | | [facility] | [address] [facility] | [address] | | + + + + + [...] ST. | [address] | [place] | [phone] | | [facility] | | [address] | | | - LABORATORY | | [...] [address] | [place] | [phone] | | [facility] | | [address] | | | - LABORATORY | | [...] [address] | [place] | [phone] | | [facility] | | [address] | | | - LABORATORY | | [...] [address] | [place] | [phone] | | [facility] | | [address] | | | - LABORATORY | | [...] r pylori Ag | | | [facility] | [...] ST. | [address] | [place] | [phone] | | [facility] | | [address] | | | - LABORATORY | | | | + + + + + EGD (12/24/2017 1:19 PM PST) + + | Specimen | + + | | + + + + -+ | Narrative | Performed At | + + -+ | | [facility] | | GastroenterologyPatient Name: Moe SanchezProcedure Date: 12/24/2017 | [place] | | 1:19 PMMRN: [id number] #: [id number] of : | | | 9Admit Type: AmbulatoryAge: 57Room: [facility] 01Gender: MaleNote | | | Status: FinalizedAttending MD: Emmanuel Daniel , [facility]cedure: | | | Upper GI endoscopyIndications: Diarrhea, Weight | | | lossProviders: Emmanuel Daniel MD, Maria Isabel Morris RN, | | | Kim Hicks, Colon Therapist, [place] | | | Sapna Barakat MD (Anesthesia [...] the anesthesiologist and | | | the biometric fingerprinting technician in the endoscopy suite. Mental Status [...] Out: 1:31:13 PM | | | [facility], [address] [facility] | | | [place] [address] | | | - Discharge patient to [...] Out: 1:31:13 PM | | | [facility], [address], [place] | | | [address] | | + + -+ + +---------+ + + | Performing | Address | City/State/[facility]code | Phone Number | | [...] 12/24/2017 | [place] | | 1:17 PMMRN: [id number] #: [id number] of : | | | 9Admit Type: AmbulatoryAge: 57Room: [facility] 01Gender: MaleNote | | | Status: FinalizedAttending MD: Emmanuel Daniel , MDProcedure: | | | ColonoscopyIndications: Clinically significant diarrhea of | | | unexplained originProviders: Emmanuel Daniel MD, Maria Isabel | | | Arturo, RN, Kim Hicks, Colon Therapist, | | | Jarett Barakat MD (Anesthesia [...] | | | the anesthesiologist and the biometric fingerprinting technician in the endoscopy suite. | | [...] PMScope Out: 1:48:57 PM [facility] | | | [facility], [address] [place] [address] | | | [phone] | | | - Await pathology results. [...] |Scope Out: 1:48:57 PM | | | [facility], [address] [place] | | | [address] | | + + -+ + +---------+ [...] | colonic mucosa with focal adenomatous change. [facility]:C2NR | | | GROSS DESCRIPTION: Received [...] | | cm, submitted, all in (D1). ka:CLR:[facility] ADDITIONAL NOTES: | | | Immunohistochemical studies were performed on this case with the | | | appropriate positive controls that react as expected. This test was | | | developed and its performance characteristics determined by [facility] | | | [facility]. It has not been cleared or approved by the U.S. Food | | | and Drug Administration. The FDA has determined that such clearance | | | or approval is not necessary. This test is used for clinical | | | purposes. It should not be regarded as investigational or for | | | research. [facility] is certified under the Clinical | | | Laboratory Improvement Amendments of 1988 (CLIA) as qualified to | | | perform high complexity clinical laboratory testing. This assay | | | has not been validated for specimens that have been decalcified. | | | PERFORMING LABORATORY: Tissue processing and slide preparation were | | | performed by [facility], [address], [facility] | | | [place] [address] (Datastage Consultant: Evan Frausto M.D. CLIA#: | | | [id number]). Professional interpretation was performed by [facility] | | | [facility], [address], [place] [address] | | | (Datastage Consultant: Evan Frausto M.D.; CLIA#: [id number]). | | | Diagnostician: Rafael Bales MD [...]
--- OUTSIDE RECORDS SUMMARY | ~2020-06-03 | XMS | Clinical Summary ---
Demographics + + + | Address | [address] | | | [place] [address] | + + + | Home Phone [...] Team Providers + +------+ + | Care Shoemaker Apprentice Name | Role | Phone | [...] | | + + + +---------+------+------+-------+ | [place]-3 Fatty | CAPS, one capsule by | [...] tablet by | 90 | 3 | / | | Activ | | (LIPITOR) 80 [...] capsule by | 90 | 1 | 06/ | | Activ | | (LYRICA) 75 mg | mouth 2 times daily. | capsule | | 1/20 | | e | | capsule | | | | 20 | | | + + +---------+---+------+------+-------+ | diclofenac | Take 1 tablet by | 60 | 1 | 06/1 | | Activ | | (VOLTAREN) 75 mg EC | mouth 2 times daily. | tablet | | 1/20 | | e | | tabletIndications: | [...] automatically from request for surgery | | [id number] | + + + + + | Diarrhea, unspecified type | 01/15/2020 | + + + + + | Overview: Added automatically from request for surgery | | [id number] | + + + + + | Unintentional weight loss | 01/15/2020 | + + + + + | Overview: Added automatically from request for surgery | | [id number] | + + + + + | Opioid type dependence, continuous | 01/15/2020 | + + + + + | Overview: Added automatically from request for surgery | | [id number] | + + + + + | Allergy to opioid analgesic | 01/15/2020 | + + + + + | Overview: Added automatically from request for surgery | | [id number] | + + + + + | [...] Overview: Lower back injury (From [facility] 1980 1984 | + + + + [...] artery disease involving mi'kmaq coronary artery of | 12/21/2013 | | mi'kmaq heart without angina pectoris | | + [...] attenuation cannot | | completely be ruled out.[facility] 12/25/13, shows non critical coronary | [...] ventricular arrhythmia performed by Dr. Gambino at [facility] on 01/30/2013. Patient had spontaneous PVCs from [...] back in 3 days to | | [place] [address] for an attempt of ablation under general [...] IMPLANTED GENERATOR | | Medtronic DDD [id number] [id number] 06/14/09 RV LEAD Medtronic Active | | Bipolar CapSureFix 4076 [id number] 06/14/09 A LEAD Medtronic | | Active Bipolar CapSurFix 4076 [id number] 06/14/09 | + + + +---+ | [...] | Heart Cath, 02/29/2012, LVEF is 65%, [facility], Daljit Singletary, | | [facility] Myocardial Gated Stress Test, 05/25/2009, EF 53 | | % during rest and 52% during stress. [facility], | | [place] Sestamibi Stress Test, 06/14/2008, LVEF is | | 60%, [facility], Daljit MorenowanL 12/25/13, shows noncritical | [...] Plan: Nonobstructive CAD noted | | on [facility] from 2013, no EKG changes, and [...] | 05/30/ | Telephone | Cardiology | Silvia, | Other (medication | | 2019 | | | [place] | and swelling) | +--------+ + + + + | 05/30/ | Telephone | Family Medicine | Kirk French | Medication Reaction | | 2019 | | | MD Brea | | +--------+ + + + + | 05/28/ | Refill | Family Rebecca | Kirk French | Medication Refill | | 2019 | | | MD Brea | | +--------+ + + + + | 05/27/ | Telephone | Cardiology | Daljit Singletary, | Other ([facility] | 2019 | | | | [...] | 05/07/ | Telephone | Cardiology | Silvia | Britt | 2019 | | | PARISA [place] | (pacemaker/MRI/shoul | | | | | | good) | +--------+ + + + + | 05/03/ | Telephone | Family Medicine | Kirk French | Medication Orders | 2019 | | | MD Brea | | +--------+ + + + + | 05/02/ | Telephone | Cardiology | Shanique Vega | 2019 | | | PARISA [place] [...] | | | | | | (HCC); Ascending | | | | | | aortic aneurysm | | | | | | (HCC) | +--------+ + + + + | 05/01/ | Refill | Family Medicine | Kirk French | Medication Orders | | 2019 | | | MD Brea | | +--------+ + + + + | 04/25/ | Abstract | Cardiology | Silvia | | 2019 | | | PARISA [place] | | +--------+ + + + + | 03/27/ | Telephone | Cardiology | Daljit Singletary, | Other (Missed | 2019 | | | | [facility]) | +--------+ + + + [...] + + | Mother | | | [place] | | | | (Age | | [...] W | | | | | | [place], | | | | | | [place] [address] | | | | | | [phone] | | | | | | | [...] Left: | CAMERON | | 09/27/ | [id number] | | - [id number]: | | [employer]reter | [employer] | | 2020 | / | | Qty: 1 on 04/13/2019 by | | | - CAMERON | | | /[id number] | | Matthew Uriarte MD at | | | | | | 56 | | [facility] | | | | | | | | [facility] | | | | | | [...] | monitoring.Device interrogation due in office at [facility]. | | |Data collected by Shabana Lama [...] and has received error codes. Referred to [facility] Stay | | Connected line. Monthly remote monitoring.Device interrogation due in office at [facility]. | |Underlying rhythm: Sinus rhythm 72-75 beats. [...] and has received error codes. Referred to [facility] Stay Connected line. Monthly remote monitoring. | |Device interrogation due in office at [facility]. | + + + +---------+ + + [...] | | | | | | n [place] | | | | | + +--------+ [...] +--------+ +---------+--------+ | MEDICARE | MEDICA | [id number] | 01/21/20 | [phone] | | Medica | | | RE | | 01-Pre | 5 | | re | | | PART A | | sent | | | | | | AND B | | | | | | + +--------+ +--------+ +---------+--------+ | MEDICARE | MEDICA | [id number] | 01/21/20 | [phone] | | Medica | | | RE | | 01-Pre | 5 | | re | | | PART A | | sent | | | | | | AND B | | | | | | + +--------+ +--------+ +---------+--------+ | AARP | AARP | [id number] | | [phone] | | Indemn | | | MDCR | | 016-Pr | 0 | | ity | | | SUPPL | | esent | | | | + +--------+ +--------+ +---------+--------+ | AARP | AARP | [id number] | 11/22/19 | [phone] | | Indemn [...] Person | Self | [birth year] | [address] | | Kirk | cristo/Per | | 1960 | [phone] | [place] | | | roxanne | | | 8 (Home) | [address] | + +--------+ +--------+ + + | Moe Sanchez | Person | Self | [birth year] | | [address] | | Kirk | cristo/Per | | 1960 | [phone] | Dr [place] | | | roxanne | | | 8 (Home) | [address] | + +--------+ +--------+ + + | LauraMoe | Dave | Self | [birth year] | | [address] | | Kirk | Constitution Party | | 1960 | [phone] | [address] [place] | | | Liabil | | | 3 ([place]) | [address] | | | ity | | | | | + +--------+ +--------+ + + Advance Directives + + + + + | Type | Date Recorded | Patient | Explanation | | | | Gambling Dealer | | + + + + + | Power of | | | | | Animal Husbandman | | | | + + + [...]
--- OUTSIDE RECORDS SUMMARY | ~2020-06-03 | XMS | Encounter Summary ---
Demographics + + + | Address | [address] [place] [address] [address] | | | [place] [address] | + + + | Home Phone [...] [place] | | | | | [address] | | + + + + + Care Team Providers + +------+ + | Care Run Lead Name | Role | Phone | [...] | 2019 | | Center at [facility] [address] | MD [address] | | | | | [address] | [place], [place] | | | | | [facility] and | [address] | | | | | [facility], [facility] 2 | [phone] | | | | | [place], [place] | | | | | | [address] | | | | | | [phone] | | | +--------+ + + + [...]
--- OUTSIDE RECORDS SUMMARY | ~2020-06-03 | XMS | Encounter Summary ---
Demographics + + + | Address | [address] | | | [place] [address] | + + + | Home Phone [...] [address] | | | | | [place], | [place], | | | | | [place] [address] | [place] [address] | | | | | [phone] | [phone] | | | | | | | [...] | | | | | | [place] [address] | | | | | | [phone] | | | | | | | | +--------+ + + + + documented as of this encounter Visit Diagnoses Not on filedocumented in this encounter"
--- OUTSIDE RECORDS SUMMARY | ~2020-06-03 | XMS | Encounter Summary ---
Demographics + + + | Address | [address] | | | [place] [address] | + + + | Home Phone [...] Providers + +------+ + | Care Naval Aircrewman Tactical Helicopter Name | Role | Phone | + [...] 2012 | | Conversion Location | [address] | | | | | TRACIE TINEO [facility] | [address] [place], [place] [address], | | | | | [place], [place] | [place] [address] | | | | | [address] | [phone] | | | | | [phone] | | | +--------+ + + + [...] | | | | | | [place] [address] | | | | | | [phone] | | | | | | | | +--------+ + + + + documented as of this encounter Visit Diagnoses Not on filedocumented in this encounter"
--- OUTSIDE RECORDS SUMMARY | ~2020-06-03 | XMS | Encounter Summary ---
Demographics + + + | Address | [address] | | | [place] [address] | + + + | Home Phone [...] Providers + +------+ + | Care Neon Glass Blower Name | Role | Phone | + [...] 2012 | | CARDIOLOGY [address] | PRICE LISTER [address] | | | | | [place], | [place] | | | | | [place] [address] | [address] | | | | | [phone] | | | +--------+ + + + [...] W | | | | | | [place], | | | | | | [place] [address] | | | | | | [phone] | | | | | | | [...] + | [address] | [address] | [place] | | | [facility] | | [address] | | | - [...] | | | LAB | | | Sri [place]ankan, | | | | | | External [...]
--- OUTSIDE RECORDS SUMMARY | ~2020-06-03 | XMS | Encounter Summary ---
Demographics + + + | Address | [address] | | | [place] [address] | + + + | Home Phone [...] Providers + +------+ + | Care Pellet Mill Operator Name | Role | Phone [...] 2014 | | CARDIOLOGY [address] | LANDSCAPE TECHNICIAN [address] | | | | | [place], | [place], [place] | | | | | [place] [address] | [address] | | | | | [phone] | | | +--------+ + + + [...] | | | | | | [place] [address] | | | | | | [phone] | | | | | | | | +--------+ + + + + documented as of this encounter Visit Diagnoses Not on filedocumented in this encounter"
--- OUTSIDE RECORDS SUMMARY | ~2020-06-03 | XMS | Encounter Summary ---
Demographics + + + | Address | [address] | | | [place] [address] | + + + | Home Phone [...] Providers + +------+ + | Care Assembler Faucets Name | Role | Phone | + [...] + + | 06/22/ | Telephone | [facility] | Emmanuel Daniel MD | Lab Order | | 2019 | | GASTROENTEROLOGY | [address], [place] | | | | | [address] [place] | [address] [place], [place] | | | | | [address] [place], [place] | [address] | | | | | [address] | | | | | | [phone] | | | +--------+ + + + [...] He wants to have labs ordered at [facility] ut he wants to wait to see [...] | | | | | | [place] [address] | | | | | | [phone] | | | | | | | | +--------+ + + + + documented as of this encounter Visit Diagnoses Not on filedocumented in this encounter
--- OUTSIDE RECORDS SUMMARY | ~2020-06-03 | XMS | Encounter Summary ---
Demographics + + + | Address | [address] | | | [place] [address] | + + + | Home Phone [...] Team Providers + +------+ + | Care Filtration Supervisor Name | Role | Phone | [...] | Ascending | [place], | [address] [place] | | | | | aortic | PARISA [place] | [place], | | | | | aneurysm | [address] | [place] | | | | | ([facility]) | [place] | [address] | | | | | Procedures | [place], | Phone: | | | | | ECHO | [place] | [phone] | | | | | Complete | [address] | Fax: | | | | | | Phone: | [phone] | | | | | | [phone] | | | | | | | Fax: | | | | | | | [phone] | | +--------+--------+ + + + + [...] | Ascending | [place], | [address] [place] | | | | | aortic | PARISA [place] | [place], | | | | | aneurysm | [address] | [place] | | | | | ([facility]) | [place] | [address] | | | | | Procedures | [place], | Phone: | | | | | ECHO | [place] | [phone] | | | | | Complete | [address] | Fax: | | | | | | Phone: | [phone] | | | | | | [phone] | | | | | | | Fax: | | | | | | | [phone] | | +--------+--------+ + + + + Encounter Details +--------+ + + + + | Date | Type | Department | Care Team | Description | +--------+ + + + + | 05/01/ | Hospital | [facility] | [place], | Ascending thoracic | | 2020 | Encounter | MED CTR ECHO [address] | Janeen DIGITAL MUSIC INSTRUCTOR [address] | aortic aneurysm | | | | [place] | [place], | ([facility]); Ascending | | | | [place] [address] | [place] [address] | aortic aneurysm | | | | [phone] | [phone] | ([facility]) | | | | | | | [...] | | | | | | | tejon coronary | | | | | | | artery of tejon | | | | | | | [...] + + + +---------+ + + | [place]-3 Fatty | CAPS, one capsule by | [...] W | | | | | | [place], | | | | | | [place] [address] | | | | | | [phone] | | | | | | | [...] | | | | | | n [place] | | | | | + +--------+ [...]
--- OUTSIDE RECORDS SUMMARY | ~2020-06-03 | XMS | Encounter Summary ---
Demographics + + + | Address | [address] | | | [place] [address] | + + + | Home Phone [...] Providers + +------+ + | Care Staffing Recruiter Name | Role | Phone | [...] | | | | CENTER [address] | [place] | (Primary Dx) | | 07/28/ | | [place] | [address] | | | 2017 | | [address] | | | | | | [phone] | | | +--------+ + + + [...] sent through Care Everywhere.Chest Pain, Non cardiac (Uzbek)documented in this encounter Medications at Time of [...] MD - 07/27/2018 10:55 PM PD T [facility] Moe Sanchez Emergency Department Encounter Note [address] [place] [address] PCP:Kirk French MD [phone] CHIEF COMPLAINT: Chief [...] SURGERY ABLATION Bilateral 04/03/2013 x3 APPENDECTOMY 2005 [facility] CARDIAC CATHERIZATION 12/25/13 Left COLONOSCOPY N/A 12/24/2017 Procedure: COLONOSCOPY; Surgeon: Emmanuel Daniel MD; Location: [facility] MEDICAL PROCEDURE UNIT HARDWARE REMOVAL KNEE SURGERY 2004 meniscus-right LAMINECTOMY 1991 L3-4 LUMBAR DISCECTOMY 1991 L3-4 LUMBAR FUSION 01/2011 6 spine fusions neck fusion 08/10/2012 [place], [place] NECK SURGERY PACEMAKER PLACEMENT 06/14/09 SHOULDER SURGERY 03/22/13 SINUS SURGERY 1997 SPINAL FUSION STOMACH SURGERY UPPER GASTROINTESTINAL ENDOSCOPY N/A 12/24/2017 Procedure: EGD; Surgeon: Emmanuel Daniel MD; Location: [facility] MEDICAL PROCEDURE UNIT VASECTOMY CURRENT [...] DOSE, CALL 911Disp-100 tablet, R-3 , Normal [place]-3 Fatty Acids (SALMON OIL-1000 PO) CAPS, [...] FIND Take 1 tablet by mouth Daily. MARINE-T6Iolgeppjoy Med UNCODED MEDICATION Diagnosis: Obstructive Sleep Apnea ICD-9: 327.23 Length of Need: 99 MonthsDisp-1 Device, R-0, [id number] -Nasal Pillows, C7579-Hvtqy Mask, A 7030- Full Face Mask, S0367-Hbnuxt Humidifier, Y6534-Hjkqdh Tubing, W8207-Mxaaolka, Y4305-Cz instrap A7039/A703 8-Filters valACYclovir (VALTREX) 1 g [...] now present Confirmed by ANGELA MARADIAGA MD ([id number]) on 07/28/2018 6:03:35 AM IMAGING STUDIES (X-Rays [...] were reviewed along with EMS notes and custodial record s if applicable. (See chart for [...] Internal Medicine Why: As needed Contact information: [facility] [place] [address] [address] Discharge Medication List as of [...] | | | | | | [place] [address] | | | | | | [phone] | | | | | | | [...] W?MRN: | | | | | | [id number] | | | [id number] | | | his | | | [...] | | | ent/60 | | | [id number] | | | -5586- | | | [...] | | | St. | | | [place] | | | y | | | [...] | | | ext. | | | [address] | | | or go | | [...] | | | M.D. | | | Line Service Attendant | | | al | | | Medici | | | ne | | | [phone] | | | [phone] | | | [phone] | | | [phone] | | | [phone] | | | 34 | | | Curren | | | t | | | Missael | | | o | | | Iwlkins | | | - | | | [...] | | | | | | [employer] | | | | | [...] | Performing | Address | City/State/[facility] | Phone Number | | Organization | | | | + + + + + | [facility] | [address] | [place] | [phone] | | [facility] | | [address] | | | - LABORATORY | | [...] mL/min/1.73m2 | [facility] | | | [place] [facility] | RATE,ESTIMATED | | MEDICAL | | | | mL/min/1.36r1Ovzm than | | CENTER - | | [...] [address] | [place] | [phone] | | [facility] | | [address] | | | - LABORATORY | | [...] + | [facility] | [address] | [place] | [phone] | | [facility] | | [address] | | | - LABORATORY | | [...] | | | | ANGELA MARADIAGA MD ([id number]) | | | | | | on [...]
--- OUTSIDE RECORDS SUMMARY | ~2020-06-03 | XMS | Encounter Summary ---
Demographics + + + | Address | [address] | | | [place] [address] | + + + | Home Phone [...] Providers + +------+ + | Care Budget Counselor Name | Role | Phone | [...] abdominal | [address] | [address], | | | | | pain | [address] [place] | [place] [address] | | | | | Chronic pain | [address] | [place], | | | | | syndrome | [place], [place] | [place] [address] | | | | | Procedures | [address] | Phone: | | | | | Office Visit | Phone: | [phone] | | | | | | [phone] | Fax: | | | | | | Fax: | [phone] | | | | | | [phone] | | +--------+--------+ + + + + Encounter Details +--------+---------+ + + + | Date | Type | Department | Care Team | Description | +--------+---------+ + + + | 12/02/ | Office | [facility] | Emmanuel Daniel MD | Diarrhea, | | 2018 | Visit | GASTROENTEROLOGY | [address], [place] | unspecified type | | | | [address] [place] | [address] [place], [place] | (Primary Dx); Weight | | | | [address] [place], [place] | [address] | loss, | | | | [address] | | unintentional; | | | | [phone] | | Generalized | | | | [...] any noct urnal symptoms. He was in [facility] 2 years ago and required hospitalization [...] severe diarrhea probable infective occurring while visiting [facility] Diarrhea etiology and significance to be [...] | | | | | | [place] [address] | | | | | | [phone] | | | | | | | [...]
--- OUTSIDE RECORDS SUMMARY | ~2020-06-03 | XMS | Encounter Summary ---
Demographics + + + | Address | [address] | | | [place] [address] | + + + | Home Phone [...] Team Providers + +------+ + | Care Utilization Coordinator Name | Role | Phone | + +------+ + PCP | Unavailable | + +------+ + Encounter Details +--------+ + + + + | Date | Type | Department | Care Team | Description | +--------+ + + + + | 09/24/ | [facility] | [facility] | Evna Gandara MD | | | 2005 | Encounter | MED CTR XRAY [address] | [address] [facility] | | | | | [place] | [place] | | | | | [place] [address] | [address] | | | | | [phone] | | | +--------+ + + + [...] [place] | | | | | | [place] [address] | | | | | | [phone] | | | | | | | | +--------+ + + + + documented as of this encounter Visit Diagnoses Not on filedocumented in this encounter"
--- OUTSIDE RECORDS SUMMARY | ~2020-06-03 | XMS | Encounter Summary ---
Demographics + + + | Address | [address] | | | [place] [address] | + + + | Home Phone [...] Team Providers + +------+ + | Care Bander Hand Name | Role | Phone | + +------+ + PCP | Unavailable | + +------+ + Encounter Details +--------+ + + + + | Date | Type | Department | Care Team | Description | +--------+ + + + + | 07/04/ | Hospital | [facility] | Jacek Ortiz | | | 2009 | Encounter | HOSPITAL EMERGENCY | MD [address] | | | | | CENTER [address] | [address] | | | | | [address] [place] | [place] [address] | | | | | [address] | [phone] | | | | | [phone] | | | +--------+ + + + [...] | | | | | | [place] [address] | | | | | | [phone] | | | | | | | | +--------+ + + + + documented as of this encounter Visit Diagnoses Not on filedocumented in this encounter"
--- OUTSIDE RECORDS SUMMARY | ~2020-06-03 | XMS | Encounter Summary ---
Demographics + + + | Address | [address] | | | [place] [address] | + + + | Home Phone [...] Providers + +------+ + | Care Electronics Scale Tester Name | Role | Phone | [...] | disease involving | | | | [place], | [place], | cous[place]ta coronary | | | | [place] [address] | [place] [address] | artery of coushatta | | | | [phone] | [phone] | heart without angina | | | [...] of non-critical coronary artery d isease involving coushatta coronary artery of coushatta heart without angina pectoris, essential h ypertension, [...] stay active. He enjoys hunting in his [place]. He has not had any chest pain [...] Preventative health care Coronary artery disease involving coushatta coronary artery of coushatta heart without angina pectoris Cannabis abuse, daily [...] 3RD DOSE, CALL 911 100 tablet 3 [place]-3 Fatty Acids (SALMON OIL-1000 PO) CAPS, one capsule by mouth daily twice daily ondansetron (ZOFRAN ODT) 4 mg disintegrating tablet Take 4 mg by mouth. ONE TOUCH DELICA LANCETS [employer] [...] was found Confirmed by ANGELA MARADIAGA MD ([id number]) on 01/03/2019 8:10:39 PM LAB RESULTS reviewed [...] BNP 15 01/02/2019 I reviewed records from [facility] for angiogram results on 019 which is summarized in the HPI. RESULTS- I reviewed reports from [facility]: No results found. Left heart catheterization [...] ASSESSMENT: 1. Non-critical Coronary artery disease involving coushatta coronary artery of coushatta heart [facility] angina pectoris: A.Normal exercise sestamibi stress test [...] Symptoms with moderate exertion of t he [place] [employer] functional class. Heart failure stage [...] by Dr Juan Diego Gambino at [facility] on 01/30/2013.Patient had spontaneous PVC's fro [...] to go back in 3 days to [place] for an attempt of ablation under general [...] this chart may have been created with Partschannel voice recognition software. Occasi onal wrong-word or [...] | | | | | | [place] [address] | | | | | | [phone] | | | | | | | | +--------+ + + + + documented as of this encounter Visit Diagnoses + + | Diagnosis | + + | Coronary artery disease involving coushatta coronary artery of coushatta heart without | | angina pectoris - Primary | + + | Symptomatic PVCs Other premature beats | + + | Essential hypertension Unspecified essential hypertension | + + documented in this encounter
--- OUTSIDE RECORDS SUMMARY | ~2020-06-03 | XMS | Encounter Summary ---
Demographics + + + | Address | [address] | | | [place] [address] | + + + | Home Phone [...] Providers + +------+ + | Care Wet Wheeler Name | Role | Phone | + +------+ + | Kirk French MD | PCP | | + +------+ + Encounter Details +--------+ + + + + | Date | Type | Department | Care Team | Description | +--------+ + + + + | 06/03/ | Hospital | [facility] | Conversion | Back pain, | | 2014 | Encounter | CONVERSION DEP [address] | Transaction, | unspecified location | | | | [address] | Provider Unknown | | | | | [place], [place] | [phone] | | | | | [address] | (Fax) | | | | | [phone] | | | +--------+ + + + [...] + + + +---------+ + + | [place]-3 Fatty | CAPS, one capsule by | [...] | | | | | | | #[id number], exp 07/2016 | | | | | [...] | | | | | | [place], | | | | | | [place] [address] | | | | | | [phone] | | | | | | | [...]
--- OUTSIDE RECORDS SUMMARY | ~2020-06-03 | XMS | Encounter Summary ---
Demographics + + + | Address | [address] [place] [address] [address] | | | [place] [address] | + + + | Home Phone [...] [place] | | | | | [address] | | + + + + + Care Team Providers + +------+ + | Care Music Teacher Name | Role | Phone | [...]
--- OUTSIDE RECORDS SUMMARY | ~2020-06-03 | XMS | Encounter Summary ---
Demographics + + + | Address | [address] | | | [place] [address] | + + + | Home Phone [...] Providers + +------+ + | Care Video Photographer Name | Role | Phone | [...] + + | 06/20/ | Telephone | [facility] | Daljit Singletary, | Chest Pain | | 2018 | | CARDIOLOGY [address] | MD [address] [place] | | | | | [place], | [place], | | | | | [place] [address] | [place] [address] | | | | | [phone] | [phone] | | | | | | | [...] He states he refuses to go to [facility] so he will come here. I stated he needs to have somebody d rive him if he comes over here. He will find a rental car ferry driver and take another nitro to see [...] | | | | | | [place] [address] | | | | | | [phone] | | | | | | | | +--------+ + + + + documented as of this encounter Visit Diagnoses Not on filedocumented in this encounter
--- OUTSIDE RECORDS SUMMARY | ~2020-06-03 | XMS | Encounter Summary ---
Demographics + + + | Address | [address] | | | [place] [address] | + + + | Home Phone [...] Team Providers + +------+ + | Care Etcher Enameling Name | Role | Phone | + [...] + + | 08/24/ | Office | [facility] | [place], | Ascending thoracic | | 2018 | Visit | CARDIOLOGY [address] | PARISA [place] [address] | aortic aneurysm | | | | [place], | [place], | ([facility]) (Primary Dx); | | | | [place] [address] | [place] [address] | Syncope, unspecified | | | | [phone] | [phone] | syncope type; | | | | | | Hypertension, | | | | | | unspecified type; | | | | | | Coronary artery | | | | | | disease involving | | | | | | buckland coronary | | | | | | artery of buckland | | | | | | heart [...] of non-critical coronary artery d isease involving buckland coronary artery of buckland heart without angina pectoris, essential h ypertension, [...] Preventative health care Coronary artery disease involving buckland coronary artery of buckland heart without angina pectoris Cannabis abuse, daily [...] DOSE, CALL 911 100 tablet 3 [place]-3 Fatty Acids (SALMON OIL-1000 PO) CAPS, one [...] now present Confirmed by ANGELA MARADIAGA MD ([id number]) on 07/28/2018 6:03:35 AM LAB RESULTS reviewed during visit today primarily from [facility]: LIPID Lab Results Component Value Date TRIG [...] PLTEX 157 04/11/2018 I reviewed records from [facility] for emergency department visit o n 07/27/2018 [...] to go back in 3 days to [place] for an attempt of ablation under general [...] He is in class II of the [place] [employer] f unctional class. There are [...] subsided. 2. Non-critical Coronary artery disease involving buckland coronary artery of buckland heart [facility] angina pectoris: A. Normal exercise sestamibi stress test on 05/25/09. LVEF by [facility] ed SPECT was 53%. B. Echocardiogram [...] this chart may have been created with [employer] voice recognition software. Occasi onal wrong-word or [...] | | | | | | [place], | | | | | | [place] [address] | | | | | | [phone] | | | | | | | [...] + + | Coronary artery disease involving buckland coronary artery of buckland heart without | | angina pectoris | [...]
--- OUTSIDE RECORDS SUMMARY | ~2020-06-03 | XMS | Encounter Summary ---
Demographics + + + | Address | [address] | | | [place] [address] | + + + | Home Phone [...] Providers + +------+ + | Care Repair Technician Name | Role | Phone | + +------+ + | Kirk French MD | PCP | | + +------+ + Encounter Details +--------+ + + + + | Date | Type | Department | Care Team | Description | +--------+ + + + + | 01/05/ | Anesthesia | [facility] | Jarett Barakat | | | 2019 | Event | MED CTR MP INTRA OP | P, MD [address] | | | | | [address] | [address] [place], [place] | | | | | [place], [place] | [address] | | | | | [address] | | | | | | [phone] | | | +--------+ + + + [...] explained and consent obtained. Patient transported to [facility], | | | 4 | | Monitors [...] | 01/05/19950 by | | eral | paob-bvt-aprtgn catheter system; | Kasie Natarajan RN | [...] EVALUATION Moechica Sanchez 58 y.o. male 1960 [id number] Procedure(s) EGD (N/A Mouth) COLONOSCOPY (N/A Rectum) [...] by Jarett Barakat MD 01/05/2019 10:15 [facility] nesthesia Procedure Notes - Jarett Barakat MD - 01/05/2019 8: 44 AM PSTAssociated Order(s): ANE AIRWAY NOTEDocument Blocks and LDA Procedures nesthesia Prepro cedure Evaluation - Jarett Barakat MD - 01/05/2019 1:19 AM PST ANESTHESIA PREANESTHESIA EVALUATION Moe Sanchez 58 y.o. male 1960 [id number] Procedure(s): EGD (N/A Mouth) COLONOSCOPY (N/A Rectum) [...] Preventative health care Coronary artery disease involving cabazon coronary artery of cabazon heart without angina pectoris Cannabis abuse, daily [...] W | | | | | | [place], | | | | | | [place] [address] | | | | | | [phone] | | | | | | | [...] | | | | | Vomiting, Starting [facility] 01/05/19 at | | AM PST [...]
--- OUTSIDE RECORDS SUMMARY | ~2020-06-03 | XMS | Encounter Summary ---
Demographics + + + | Address | [address] | | | [place] [address] | + + + | Home Phone [...] Providers + +------+ + | Care Drapery Sewer Hand Name | Role | Phone [...] unspecified | [address] | | | | | type | [address] | [place], | | | | | Procedures | [place], | [place] | | | | | [place] | [place] [address] | [address] | | | | | Stress Test | Phone: | Phone: | | | | | (Vasodilator | [phone] | [phone] | | | | | ) CHG | Fax: | Fax: | | | | | MYOCARDIAL | [phone] | [phone] | | | | | SPECT | [...] unspecified | [address] | [address] | | | | | type | [address] | [place], | | | | | Procedures | [place], | [place] | | | | | [place] | [place] [address] | [address] | | | | | Stress Test | Phone: | Phone: | | | | | (Vasodilator | [phone] | [phone] | | | | | ) CHG | Fax: | Fax: | | | | | MYOCARDIAL | [phone] | [phone] | | | | | SPECT | [...] + + | 07/21/ | Hospital | [facility] | Daljit Singletary, | Chest pain, | | 2018 | Encounter | MED CTR NUCLEAR | MD [address] | unspecified type | | | | MEDICINE [address] | [address] [place], | | | | | [place], | [place] [address] | | | | | [place] [address] | [phone] | | | | | [phone] | | | | | | | Shift Supervisor RnPavel | | +--------+ + + + + [...] + + + +---------+ + + | Nicholson-3 Fatty | CAPS, one capsule by | [...] | 2019 | Visit | | Janeen, CRAFT RECRUITER [address] | | | | | | [place], | | | | | | [place] [address] | | | | | | [phone] | | | | | | | [...] | | | | Starting [facility] 07/21/18 at 0822, For | | | | | | | 1 dose, Nuclear Medicine | | | | | | + +-------+ + +---+---+ +---+---+ | | | +---+---+ documented in this encounter"
--- OUTSIDE RECORDS SUMMARY | ~2020-06-03 | XMS | Encounter Summary ---
Demographics + + + | Address | [address] | | | [place] [address] | + + + | Home Phone [...] + +------+ + | Care First Aid Officer Name | Role | Phone | [...] 2019 | | GASTROENTEROLOGY | [address], [place] | | | | | [address] [place] | [address] [place], [place] | | | | | [address] [place], [place] | [address] | | | | | [address] | | | | | | [phone] | | | +--------+ + + + [...] yesterday. We see a referral to [facility] that was submitted e arash this [...] mary guevara on a referral to [facility] and it shouldn't take this long, [...] | | | | | | [place] [address] | | | | | | [phone] | | | | | | | | +--------+ + + + + documented as of this encounter Visit Diagnoses + + | Diagnosis | + + | Incontinence of feces, unspecified fecal incontinence type - Primary | + + | Diarrhea, unspecified type | + + documented in this encounter"
--- OUTSIDE RECORDS SUMMARY | ~2020-06-03 | XMS | Encounter Summary ---
Demographics + + + | Address | [address] | | | [place] [address] | + + + | Home Phone [...] Providers + +------+ + | Care Clinical Rehabilitation Liaison Name | Role | Phone | [...] | unspecified | MD Jacek | [address] [facility] | | | | | type | [address] | [place], | | | | | Unintentiona | [place] | [place] [address] | | | | | l weight | [place], [place] | Phone: | | | | | loss | [address] | [phone] | | | | | Procedures | Phone: | Fax: | | | | | [place] [facility] | [phone] | [phone] | | | | | INTRALUMINAL | Fax: | | | | | | | [phone] | | | | | | ESOPHAGUS-IL [...] (Primary Dx); | | | | [address] [place], [place] | [place] [address] | Unintentional weight | | | | [address] | [phone] | loss | | | | [phone] | | | +--------+ + + + [...] | | | | | | [place], | | | | | | [place] [address] | | | | | | [phone] | | | | | | | [...]
--- OUTSIDE RECORDS SUMMARY | ~2020-06-03 | XMS | Encounter Summary ---
Demographics + + + | Address | [address] | | | [place] [address] | + + + | Home Phone [...] Providers + +------+ + | Care Starch And Prosize Mixer Name | Role | Phone | [...] + | 06/28/ | Refill | [facility] | Michael Amanda, | Medication Refill | | 2012 | | [facility] [place] | DO [address] | | | | | [address] | [place] | | | | | [place], [place] | [address] | | | | | [address] | | | | | | [phone] | | | +--------+--------+ + + + [...] | | | | | | [place] [address] | | | | | | [phone] | | | | | | | | +--------+ + + + + documented as of this encounter Visit Diagnoses Not on filedocumented in this encounter"
--- OUTSIDE RECORDS SUMMARY | ~2020-06-03 | XMS | Encounter Summary ---
Demographics + + + | Address | [address] | | | [place] [address] | + + + | Home Phone [...] Phone | + + +---------+ + | Nadnie Kingsley | ECON | Unknown | | + + +---------+ + Care Team Providers + +------+ + | Care Loom Changeover Operator Name | Role | Phone | [...] | | | | Sinoatrial | Geri, MINING CAPTAIN | [address] | | | | | node | [address] | [place], | | | | | dysfunction | [place] | [place] | | | | | (HCC) | [place], [place] | [address] | | | | | Coronary | [address] | Phone: | | | | | artery | Phone: | [phone] | | | | | disease | [phone] | Fax: | | | | | involving | Fax: | [phone] | | | | | [place] | [phone] | | | | | | coronary | | | | | | | artery of | | | | | | | [place] heart | | | | | | [...] | Visit | CARDIOLOGY [address] | MINING CAPTAIN [address] | dysfunction (HCC) | | | | [address] [place], | St [place], [place] | with symptomatic | | | | [place] [address] | [address] | bradycardia (Primary | | | | [phone] | | Dx); Coronary | | | | | | artery disease | | | | | | involving [place] | | | | | | coronary artery of | | | | | | [place] heart without | | | | | [...] disease involving [place] coronary artery without angina pectoris Cannabis abuse, [...] mouth every evening. 90 tablet 3 [facility] [...] 3rd dose, call 911 100 tablet 3 [place]-3 Fatty [...] scanned Paceart documentation and device PDF in [employer] for interrogation (with progr amming changes) performed [...] [facility] 12/25/13, shows non critical coronary artery disease, [...] to go back in 3 days to [place] for an attempt of ablation under general [...] dizziness. He is in class I-II of [place] Heart Association functional class. T here are [...] this chart may have been created with [employer] voice recognition software. Occasi onal wrong-word or [...] Device Interrogation 2. Coronary artery disease involving [place] coronary artery of [place] heart without angina pectoris I25.10 414.01 ECHO [...] | | | | | | [place] [address] | | | | | | [phone] | | | | | | | [...] [facility] HUGO | [facility] | | [place] Room Number SARAH Patient | [facility] | | [id number] Date of Study 06/16/2016 Number | - IMAGING | | Visit Number [id number] | | | Referring Physician JOSE ARMANDO GARCIA Number Date of 1960 | | | Desktop Technician LUIS FERNANDO DUARTE Age | | | 56 year(s) Interpreting | | | GURJIT TROY | | | Director Of People SYDNI CAGLE | | | Gender | | | Male Nurse Procedure Type of Study TTE | | | procedure: ECHO Complete. Procedure dateDate: 06/16/2016Start: 10:55 | | | AM Technical Quality: Adequate visualizationStudy Location: Echo | | | LabIndications: CAD CADDO CORONARY ARTERY 414.01/ I25.10 and | | [...] BARRY Room Number SARAH | | Patient [id number] Date of Study 06/16/2016 Number Visit Number | | [id number] Referring Physician JOSE ARMANDO GARCIA Number | | Date of 1960 Desktop Technician LUIS FERNANDO DUARTE Age | | 56 year(s) Interpreting GURJIT TROY | | Director Of People SYDNI CAGLE, | | Gender Male NurseProcedureType of Study TTE | | procedure: ECHO Complete.Procedure dateDate: 06/16/2016Start: 10:55 AMTechnical Quality: | | Adequate visualizationStudy Location: Echo LabIndications: CAD CADDO CORONARY ARTERY | | 414.01/ I25.10 and [...] [address] | [place] | [phone] | | [facility] | | [address] | | | - IMAGING | | [...] | | 2. Coronary artery disease involving [place] coronary artery of | | | [place] heart without angina pectoris I25.10 414.01 ECHO [...]
--- OUTSIDE RECORDS SUMMARY | ~2020-06-03 | XMS | Encounter Summary ---
Demographics + + + | Address | [address] | | | [place] [address] | + + + | Home Phone [...] Team Providers + +------+ + | Care Compressed Gas Equipment Mechanic Name | Role | Phone [...] + + | 08/19/ | Telephone | [facility] | Silvia, | Other (patient | | 2016 | | CARDIOLOGY [address] | PARISA [address] | having issues with | | | | [place], | [place], | high blood pressure) | | | | [place] [address] | [place] [address] | | | | | [phone] | [phone] | | | | | | | [...] that he returned danyell e Wednesday from [facility]. He reports that his blood pressure has [...] | | | | | | [place] [address] | | | | | | [phone] | | | | | | | | +--------+ + + + + documented as of this encounter Visit Diagnoses Not on filedocumented in this encounter"
--- OUTSIDE RECORDS SUMMARY | ~2020-06-03 | XMS | Encounter Summary ---
Demographics + + + | Address | [address] | | | [place] [address] | + + + | Home Phone [...] Team Providers + +------+ + | Care Commissioner Of Officials Name | Role | Phone | + [...] ) | | | | [place] | [place] | | | | | [address] | [address] | | | | | [phone] | | | +--------+ + + + [...] for flow max be sent to the [facility] [place], [place] like this is the [...] | | | | | | [place] [address] | | | | | | [phone] | | | | | | | | +--------+ + + + + documented as of this encounter Visit Diagnoses Not on filedocumented in this encounter"
--- OUTSIDE RECORDS SUMMARY | ~2020-06-03 | XMS | Encounter Summary ---
Demographics + + + | Address | [address] | | | [place] [address] | + + + | Home Phone [...] Providers + +------+ + | Care Food Porter Name | Role | Phone | [...] + | 09/13/ | Office | [facility] | Bahman Gant MD | Other dysphagia | | 2013 | Visit | OTOLARYNGOLOGY [address] | [address] | (Primary Dx) | | | | [address] | [address] [place] | | | | | [place], [place] | [place] [address] | | | | | [address] | [phone] | | | | | [phone] | | | +--------+---------+ + + + [...] MD - 09/13/2013 5:46 PM PDTSee dictation #[id number] signed by Josehp Gant MD at 09/13/2013 5:52 PM Bahman Lamb MD - 09/13/2013 12:00 AM PDT ENT AND AUDIOLOGY [address] [place] [place] [address] FAX: [phone] OFFICE VISIT The patient gives a history [...] Bahman Gant MD / MS JOB #: [id number] signed by Bahman Gant MD at 09/14/2013 [...] W | | | | | | [place], | | | | | | [place] [address] | | | | | | [phone] | | | | | | | [...]
--- OUTSIDE RECORDS SUMMARY | ~2020-06-03 | XMS | Encounter Summary ---
Demographics + + + | Address | [address] | | | [place] [address] | + + + | Home Phone [...] Team Providers + +------+ + | Care Arterial Embalmer Name | Role | Phone | + +------+ + | Michael Amanda DO | PCP | | + +------+ + Encounter Details +--------+ + + + + | Date | Type | Department | Care Team | Description | +--------+ + + + + | 04/03/ | Hospital | [facility] | Jay Gambino MD | | | 2012 - | Encounter | [facility] | [address] | | | | | CARDIAC TRANSPLANT | [address] [place] | | | 04/04/ | | [address] | [place] [address] | | | 2012 | | [place] | [phone] | | | | | [address] | | | | | | [phone] | | | +--------+ + + + [...] 1960 ADMISSION DATE: 04/03/2013 DISCHARGE DATE: 04/04/2013 [id number] / [id number] ADMISSION DIAGNOSES: 1. Symptomatic premature ventricular contractions [...] study and ablati on. MOE GAY ADM:04/03/13 [id number] 04/04/13 [place] DISCHARGE SUMMARY Z640-01 [id number] [facility] PARISA Hughes [facility] MD Meena Pleitez THIS REPORT IS CONFIDENTIAL AND NOT TO BE RELEASED WITHOUT PROPER AUTHORIZATION. [facility] Mr. Gay was taken to [...] 180 mg once daily. MOE GAY ADM:04/03/13 [id number] 04/04/13 [place] DISCHARGE SUMMARY Z640-01 [id number] [facility] PARISA Hughes [facility] Jay Gambino MD R THIS REPORT IS CONFIDENTIAL AND NOT TO BE RELEASED WITHOUT PROPER AUTHORIZATION. [facility] 5. Docusate sodium 2 tablets once daily. 6. Marinol 10 mg twice daily. 7. Metoprolol succinate 200 mg once daily. 8. Oxycodone 10 mg 10 mg oral as needed. 9. Oxycodone 30 mg oral twice daily. 10. Pravastatin 40 mg at bedtime. 11. Promethazine 25 mg as needed. 12. Ranitidine 1 to 2 tablets once daily. 13. Commerce oil 2 tablets twice daily. 14. Valacyclovir 500 mg once daily. There were no new medications or medication dosage changes at time of discharge. PLAN: 1. Mr. Gay will be discharged home on medications as noted above, including his usual m edications of diltiazem and metoprolol. 2. He will be seen and followed by Dr. Gambino on 16 at 9:00 a.m. at [facility], [address]. 3. He will contact our office earlier than scheduled appointment should he have any diffic ulty prior to that time. PARISA Hughes MD A P RICHIE/med #[id number] cc: MD Dona Pleitez ARNP Suwong Wongsuwan, MD Electronically Signed 04/12/13 1400 PARISA Hughes Electronically Signed 05/22/13 1245 Jay Gambino MD MOE GAY ADM:04/03/13 [id number] 04/04/13 [place] DISCHARGE SUMMARY Z640-01 [id number] [facility] PARISA Hughes [facility] [place] [facility] MD Meena Pleitez THIS REPORT IS CONFIDENTIAL AND NOT TO BE RELEASED WITHOUT PROPER AUTHORIZATION.Electronica lly signed by Jael Brown at 05/22/2013 1:25 PM Dona Grossman ARNP - 04/04/2013 9:05 AM PDT PATIENT NAME: MOE GAY Sex/Age: M / 53Y : 1960 ADMISSION DATE: 04/03/2013 DISCHARGE DATE: 04/04/2013 [id number] / [id number] ADMISSION DIAGNOSES: 1. Symptomatic premature ventricular contractions [...] study and ablati on. MOE GAY ADM:04/03/13 [id number] 04/04/13 [place] DISCHARGE SUMMARY Z640-01 [id number] [facility] PARISA Hughes [facility] MD Meena Pleitez THIS REPORT IS CONFIDENTIAL AND NOT TO BE RELEASED WITHOUT PROPER AUTHORIZATION. [facility] Mr. Gay was taken to [...] 180 mg once daily. MOE GAY ADM:04/03/13 [id number] 04/04/13 [place] DISCHARGE SUMMARY Z640-01 [id number] [facility] PARISA Hughes [facility] Jay Gambino MD R THIS REPORT IS CONFIDENTIAL AND NOT TO BE RELEASED WITHOUT PROPER AUTHORIZATION. [facility] 5. Docusate sodium 2 tablets once daily. 6. Marinol 10 mg twice daily. 7. Metoprolol succinate 200 mg once daily. 8. Oxycodone 10 mg 10 mg oral as needed. 9. Oxycodone 30 mg oral twice daily. 10. Pravastatin 40 mg at bedtime. 11. Promethazine 25 mg as needed. 12. Ranitidine 1 to 2 tablets once daily. 13. Commerce oil 2 tablets twice daily. 14. Valacyclovir 500 mg once daily. There were no new medications or medication dosage changes at time of discharge. PLAN: 1. Mr. Gay will be discharged home on medications as noted above, including his usual m edications of diltiazem and metoprolol. 2. He will be seen and followed by Dr. Gambino on at 9:00 a.m. at [facility], [address]. 3. He will contact our office earlier than scheduled appointment should he have any diffic ulty prior to that time. PARISA Hughes MD A P RICHIE/med #[id number] cc: MD Dona Pleitez ARNP Suwong Wongsuwan, MD Electronically Signed 04/12/13 1400 PARISA Hughes MOE GAY ADM:04/03/13 [id number] 04/04/13 [place] DISCHARGE SUMMARY Z640-01 [id number] [facility] PARISA Hughes [facility] Jay Gambino MD R THIS REPORT IS [...] GAY Sex/Age: M / 53Y : 1960 DIE TROUBLE SHOOTER: Jay Gambino MD DATE: 04/03/2013 PROCEDURE: 1. [...] via the right femoral vein with 8 Bhutanese, 7 Bhutanese, and 6 Bhutanese sheaths. Prior to the procedure, t he [...] was in sinus rhyt hm with a [place] interval of 154, QRS 107, QT 422, [...] wave in aVL. A MOE KING ADM:04/03/13 [id number] 04/04/13 [place] CARDIAC PROCEDURE REPORT Z640-01 [id number] [facility] Jay Gambino MD E-Sign: [facility] THIS REPORT IS CONFIDENTIAL AND NOT TO BE RELEASED WITHOUT PROPER AUTHORIZATION. [facility] ThermaCool 2.5 mm irrigated F-curved catheter was then advanced into the right ventricular outflow tract and 3-D mapping was performed using the [employer] navigation system. With mapping earliest activation was [...] four hours. Jay Gambino MD A P MARVIN/[facility] #[id number] cc: Jay Gambino MD Electronically Signed 05/22/13 0745 Jay Gambino MD MONA GAY ADM:04/03/13 [id number] 04/04/13 [place] CARDIAC PROCEDURE REPORT Z640-01 [id number] [facility] Jay Gambino MD E-Sign: [facility] THIS REPORT IS CONFIDENTIAL AND [...] | | | | | | [place], | | | | | | [place] [address] | | | | | | [phone] | | | | | | | [...] + + + | Glucose | 94Comment: Portuguese | 65 - 99 mg/dL | [facility] [...] + | JACKRESHMA JONES | [address] | [place] [address] | | | [facility] | | | | | [...] + | [facility] | [address] | [place] [address] | | | [facility] | | | | | LABORATORY | | | | + + + + + documented in this encounter Visit Diagnoses Not on filedocumented in this encounter
--- OUTSIDE RECORDS SUMMARY | ~2020-06-03 | XMS | Encounter Summary ---
Demographics + + + | Address | [address] | | | [place] [address] | + + + | Home Phone [...] Providers + +------+ + | Care Aviation Project Manager Name | Role | Phone [...] | fasting labs) | | | | [place], | [place], | | | | | [place] [address] | [place] [address] | | | | | [phone] | [phone] | | | | | | | [...] | | | | | | [place] [address] | | | | | | [phone] | | | | | | | | +--------+ + + + + documented as of this encounter Visit Diagnoses Not on filedocumented in this encounter"
--- OUTSIDE RECORDS SUMMARY | ~2020-06-03 | XMS | Encounter Summary ---
Demographics + + + | Address | [address] | | | [place] [address] | + + + | Home Phone [...] Team Providers + +------+ + | Care Refund Clerk Name | Role | Phone | [...] W | mixed | | | | [place], | [place], | | | | | [place] [address] | [place] [address] | | | | | [phone] | [phone] | | | | | | | [...] | | | | | | [place] [address] | | | | | | [phone] | | | | | | | | +--------+ + + + + documented as of this encounter Visit Diagnoses + + | Diagnosis | + + | Hyperlipidemia, mixed Mixed hyperlipidemia | + + documented in this encounter"
--- OUTSIDE RECORDS SUMMARY | ~2020-06-03 | XMS | Encounter Summary ---
Demographics + + + | Address | [address] [place] [address] [address] | | | [place] [address] | + + + | Home Phone [...] [place] | | | | | [address] | | + + + + + Care Team Providers + +------+ + | Care Telesales Advisor Name | Role | Phone | [...] | | | | | [place] | [place], [place] | | | | | | [place], [place] | [address] | | | | | | [address] | Phone: | | | | | | Phone: | [phone] | | | | | | [phone] | Fax: | | | | | | Fax: | [phone] | | | | | | [phone] | | +--------+--------+ + + + + Encounter Details +--------+---------+ + + + | Date | Type | Department | Care Team | Description | +--------+---------+ + + + | 09/28/ | Office | Digestive Health | Bridgette Rios, | Chronic diarrhea | | 2019 | Visit | [facility] at [facility] [address] | [address] | (Primary Dx); | | | | [address] [facility] | [place], [place] | Abdominal cramping; | | | | for Health and | [address] | Unintentional weight | | | | [facility] | [phone] | loss | | | | [place], [place] | | | | | | [address] | | | | | | [phone] | | | +--------+---------+ + + + [...] lab orders to [facility] 2. supervisor metalizing the nortryptiline and take 1 tablet each [...] different fr om the original. Gastroenterology Clinic [facility] ~ Initial [...] inflammatory bowel disease. CT scan done through [facility] November show ed mild diverticulosis without [...] of Present Illness: Here with his from [place] for second opinion regarding severe abdominal cramps, isreal rrhea and weight loss following a GI illness contracted during a trip to [place]. He reports that 2 years ago he was traveling in [place] and he had some suspicious seafood. He develo ps profound bloody diarrhea with severe abdominal pain. He was hospitalized in [facility] and w as treated with IV [...] file Gets together: Not on file Attends evangelical service: Not on file Active member of [...] Plan and Recommendations: 1. [facility] in [place] for stool studies as outlined above 2. If negative and symptoms persist, recommend capsule endoscopy (this could be completed b y local claim taker or he could return to [place] for this test) 3. Nortryptiline 25mg q HS with instruction to titrate to 50mg q HS after 2 weeks if tolera kevin Follow-Up: with local claim taker Counseling Time: I spent a total of 35 minutes with this patient, of which greater than 50 % of the time was spent in counseling. Specific issues that were discussed included a revie w of the disease, diagnostic tools that help in our management plans for the patient's chron ic diarrhea, abdominal cramping and weight loss and goals for treatment. Bridgette Rios MD Agriculture Worker Gastroenterology documented in this e ncounter Plan [...]
--- OUTSIDE RECORDS SUMMARY | ~2020-06-03 | XMS | Encounter Summary ---
Demographics + + + | Address | [address] | | | [place] [address] | + + + | Home Phone [...] Providers + +------+ + | Care Radiator Repairer Name | Role | Phone | [...] + + | 08/17/ | Office | [facility] | Michael Amanda, | Testosterone | | 2012 | Visit | [facility] [place] | DO [address] | deficiency (Primary | | | | [address] | [place] | Dx); Hypoglycemia; | | | | [place] | [address] | Herpes | | | | [address] | | | | | | [phone] | | | +--------+---------+ + + + [...] his testosterone levels. He seen at [facility]. He was prescribed OxyContin and Dilaudid. [...] dy sfunction. He was seen at [facility] yesterday and they prescribed him testostero ne cypionate injections. He's not sure when they wanted him to come back for labs. He has a followup appointment with [facility] in one month. Patient complains of [...] HTN (hypertension); Hypercholesterolemia; Bipolar 1 disorder; Insomnia; Coal Pipeline Operator jennifer neck pain; Depression; Hyperlipidemia; BIPOLAR [...] per orders. This note is dictated using GoodChime! voice recognition software. This note was dictated [...] | | | | | | [place] [address] | | | | | | [phone] | | | | | | | [...]
--- OUTSIDE RECORDS SUMMARY | ~2020-06-03 | XMS | Encounter Summary ---
Demographics + + + | Address | [address] | | | [place] [address] | + + + | Home Phone [...] Providers + +------+ + | Care Dip Guider Stoves Name | Role | Phone | + [...] Referral Question | | 2019 | | [facility] | MD Eva Guidry | | | | | PRIMARY CARE [address] | | | | | [address] | [place] [address] | | | | | [place], [place] | [phone] | | | | | [address] | | | | | | [phone] | | | +--------+ + + + [...] Miscellaneous Notes Telephone Encounter - Geri Bear Shower Doors And Panels Fabricator - 07/14/2019 4:06 PM PDTCalled and left VM for return call. Electronically signed by Geri Bear Shower Doors And Panels Fabricator at 07/14 4:07 PM PDTTelephone Encounter - Geri Bear Shower Doors And Panels Fabricator - 07/13/2019 5:03 PM PDT----- Message from Shelley Hess sent at 07/12/2019 16:52 PDT ----- Contact: Patient Patient called and has questions regarding an order for Cardio and Pulmonary Rehab at [facility]. He received a call from them today and has no idea where this came fr om. Would like a call back. He also wanted to let you know he had a total right shoulder r edone 06/13/19. Caller: Amilcar Relationship to patient: Patient Please call back at [phone] Can a Detailed VM be left on [...] | | | | | | [place] [address] | | | | | | [phone] | | | | | | | | +--------+ + + + + documented as of this encounter Visit Diagnoses Not on filedocumented in this encounter"
--- OUTSIDE RECORDS SUMMARY | ~2020-06-03 | XMS | Encounter Summary ---
Demographics + + + | Address | [address] [place] [address] [address] | | | [place] [address] | + + + | Home Phone [...] [place] | | | | | [address] | | + + + + + [...] Chest pain | Farooq Almaguer, | [facility] [address] | | | | | Bradycardia | DO [address] | | | | | Procedures | Yao Booth | [facility] | | | | | | [facility] | Health and | | | | | TRANSTHORACI | [facility] [place] | Healing, | | | | | C | [address] | Building [address] | | | | | ECHOCARDIOGR | Phone: | [place], [place] | | | | | AM, ADULT | [phone] | [address] | | | | | | Fax: | Phone: | | | | | | [phone] | [phone] | +--------+--------+ + + + + Reason [...] | | | | | | | [place] [address] | | | | | | | Phone: | | | | | | | [phone] | | | | | | | Fax: | | | | | | | [phone] | | +--------+--------+ + + + + Encounter Details +--------+---------+ + + + | Date | Type | Department | Care Team | Description | +--------+---------+ + + + | 02/03/ | Office | Cardiology General | Arlette Drew, | Chest pain (Primary | | 2010 | Visit | at [facility] [address] | MD | Dx); Bradycardia; | | | | [facility] for | | Pacemaker | | | | Health and Healing, | | | | | | Building | | | | | | [place], [place] | | | | | | [address] | | | | | | [phone] | | | +--------+---------+ + + + [...] per Dr. Drew's note. Farooq Jamil DO Entry Level Finance Clinical cnc service technician/ Division of Cardiovascular Medicine asonrussell Yajaira, RN - 02/09/2011 12:59 PM PDT PACEMAKER HISTORY Primary Care Provider: Darion Holden DO Home Health Care Respiratory Therapist: Arlette Drew MD Moe Sanchez is [...] chamber permanent pacemaker implantation on 06/14/09 in [place], Chronic smoker, mild DIDIER, bip olar disorder with anxiety who presents for second opinion regarding his syncopal episodes. Pt. started noticing dizzy spells and episodes of syncope about 3 years ago , pacemaker was put at the recommendation of Home Health Care Respiratory Therapist Dr. Singletary from [place]. [place]. Pt. states lala bhatti was put>1 [...] form tilt table testing but NA at [facility] May need to involve endocrine and EP [...] [address] Mailcode: Ch9a [facility], 9th Floor [facility] [address] documented in this en counter Plan of [...] Way Lab) | [facility] | | [facility] [address] | REGIONAL | | [place] [address] | LABORATORY | + + + + + + + + | Performing | Address | City/State/Zipcode | Phone Number | | Organization | | | | + + + + + | [facility] | [address] | [place] [address] | | | LABORATORY | | | [...] 10.0 ug/dl | LABORATORY | | [facility] ([address] [facility]) | | | [place] [address] | | | [place] [address] | | + + + + + + + + | Performing | Address | City/State/Zipcode | Phone Number | | Organization | | | | + + + + + | [facility] | [address] | [place] [address] | | | LABORATORY | | | [...] | | | DEPARTMENT | | | [place] | | | OF | | | [...] | + + + + + | [facility] DEPARTMENT | [address] | [place] [address] | | | PATHOLOGY | [address] [...] DEPT OF | [address] | [place], [place] | | | CARDIOLOGY | [address] | [address] | | + + + + + [...] DEPT OF | [address] | [place], [place] | | | CARDIOLOGY | [address] | [address] | | + + + + + [...] view image for the detailed interpretation from [employer] results. | CARDIOLOGY | + + + + + + + + | Performing | Address | City/State/Zipcode | Phone Number | | Organization | | | | + + + + + | [facility] DEPT OF | [address] | [place], [place] | | | CARDIOLOGY | [address] | [address] | | + + + + + documented in this encounter Visit Diagnoses + + | Diagnosis | + + | Chest pain - Primary Chest pain, unspecified | + + | Bradycardia Other specified cardiac dysrhythmias | + + | Pacemaker Cardiac pacemaker in situ | + + documented in this encounter
--- OUTSIDE RECORDS SUMMARY | ~2020-06-03 | XMS | Encounter Summary ---
Demographics + + + | Address | [address] | | | [place] [address] | + + + | Home Phone [...] Providers + +------+ + | Care Painter Decorator Name | Role | Phone | [...] | | CARDIOLOGY [address] | SENIOR ONLINE MARKETING MANAGER [address] | | | | | [place], | [place], [place] | | | | | [place] [address] | [address] | | | | | [phone] | | | +--------+--------+ + + + [...] | | | | | | [place] [address] | | | | | | [phone] | | | | | | | | +--------+ + + + + documented as of this encounter Visit Diagnoses Not on filedocumented in this encounter"
--- OUTSIDE RECORDS SUMMARY | ~2020-06-03 | XMS | Encounter Summary ---
Demographics + + + | Address | [address] | | | [place] [address] | + + + | Home Phone [...] Providers + +------+ + | Care Stock Clerk Name | Role | Phone [...] | 01/30/ | Telephone | [facility] | Emmanuel Daniel MD | Referral | | 2019 | | GASTROENTEROLOGY | [address], [place] | | | | | [address] [place] | [address] [place], [place] | | | | | [address] [place], [place] | [address] | | | | | [address] | | | | | | [phone] | | | +--------+ + + + [...] Brea Daniel declines to refer patient to [facility], the referral will have to come [...] for a referral to be sent to [facility]. When he saw Dr. Haleigh johnson he had mentioned getting another opinion from him. He tried getting a referral sent fro m his PCP but he says [facility] will not accept it, that they denied it. He says the referral has to come from Dr. Daniel. He gave me all the information. ATT: [facility] for di arrhea/IBS Their phone number is [phone] Thank you Electronically signed by Monica Kenny [...] [place], | | | | | | [place] [address] | | | | | | [phone] | | | | | | | | +--------+ + + + + documented as of this encounter Visit Diagnoses Not on filedocumented in this encounter"
--- OUTSIDE RECORDS SUMMARY | ~2020-06-03 | XMS | Encounter Summary ---
Demographics + + + | Address | [address] | | | [place] [address] | + + + | Home Phone [...] Team Providers + +------+ + | Care Panel Cutter Name | Role | Phone | [...] | 02/15/ | Office | [facility] | Jay Cohn PA | DIDIER (obstructive | | 2012 | Visit | SLEEP DISORDER [address] | [address] | sleep apnea) | | | | [address] [place] | [place] | (Primary Dx) | | | | [place] [address] | [address] | | | | | [phone] | | | +--------+---------+ + + + [...] PDTGo to [facility] for replacement equipment including: Nasal [...] pillows obtained from: [facility] [place] pressure is: 13 cm CPAP download shows [...] to go to [facility] [place] to replace his equipment, but it had [...] to go to [facility] [place] to g et a new mask and filter. He is to work toward wearing his CPAP 100% of the time he is asle ep. I will follow up again in 1 month, sooner prn. Fifteen minutes were spent [id number], wi th the majority of time spent [...] | | | | | | [place] [address] | | | | | | [phone] | | | | | | | | +--------+ + + + + documented as of this encounter Visit Diagnoses + + | Diagnosis | + + | DIDIER (obstructive sleep apnea) - Primary Obstructive sleep apnea (adult) (pediatric) | + + documented in this encounter"
--- OUTSIDE RECORDS SUMMARY | ~2020-06-03 | XMS | Encounter Summary ---
Demographics + + + | Address | [address] | | | [place] [address] | + + + | Home Phone [...] Team Providers + +------+ + | Care Scrum Product Owner Name | Role | Phone | [...] | | | | [place] | [phone] | | | | | [address] | | | | | | [phone] | | | +--------+ + + + [...] + + + +---------+ + + | [place]-[employer] Fatty | CAPS, one capsule by | [...] | | | | | | [place] [address] | | | | | | [phone] | | | | | | | [...]
--- OUTSIDE RECORDS SUMMARY | ~2020-06-03 | XMS | Encounter Summary ---
Demographics + + + | Address | [address] | | | [place] [address] | + + + | Home Phone [...] Providers + +------+ + | Care Switch Foreman Name | Role | Phone | [...] 2017 | | CARDIOLOGY [address] | [place] [address] | | | | | [place], | [place], | | | | | [place] [address] | [place] [address] | | | | | [phone] | | | | | | | [...] | | | | | | [place] [address] | | | | | | [phone] | | | | | | | | +--------+ + + + + documented as of this encounter Visit Diagnoses Not on filedocumented in this encounter"
--- OUTSIDE RECORDS SUMMARY | ~2020-06-03 | XMS | Encounter Summary ---
Demographics + + + | Address | [address] | | | [place] [address] | + + + | Home Phone [...] Providers + +------+ + | Care Truck Driver Salesperson Name | Role | Phone [...] 2019 | | CARDIOLOGY [address] | Physician Surgeon | | | | | [place] | | | | | | [place] [address] | | | | | | [phone] | | | +--------+ + + + [...] | | | | | | [place] [address] | | | | | | [phone] | | | | | | | [...] | | | | | | | Haitian, | | | | | | External [...]
--- OUTSIDE RECORDS SUMMARY | ~2020-06-03 | XMS | Encounter Summary ---
Demographics + + + | Address | [address] | | | [place] [address] | + + + | Home Phone [...] Providers + +------+ + | Care Odd Piece Checker Name | Role | Phone | + +------+ + PCP | Unavailable | + +------+ + Encounter Details +--------+ + + + + | Date | Type | Department | Care Team | Description | +--------+ + + + + | 08/17/ | [facility] | [facility] | Evan Gandara MD | | | 2005 | Encounter | MED CTR LABORATORY | [address] [facility] | | | | | [address] [place] | [place] | | | | | [place] | [address] | | | | | [address] | | | | | | [phone] | | | +--------+ + + + [...] | | | | | | [place] [address] | | | | | | [phone] | | | | | | | | +--------+ + + + + documented as of this encounter Visit Diagnoses Not on filedocumented in this encounter"
--- OUTSIDE RECORDS SUMMARY | ~2020-06-03 | XMS | Encounter Summary ---
Demographics + + + | Address | [address] | | | [place] [address] | + + + | Home Phone [...] | | | [address] [place] | [place] [address] | | | | | [place] [address] | | | | | | [phone] | | | +--------+ + + + [...] | | | | | | [place] [address] | | | | | | [phone] | | | | | | | [...]
--- OUTSIDE RECORDS SUMMARY | ~2020-06-03 | XMS | Encounter Summary ---
Demographics + + + | Address | [address] | | | [place] [address] | + + + | Home Phone [...] Team Providers + +------+ + | Care Cage Fighter Name | Role | Phone | [...] [place] | | | | | | [place] [address] | | | | | | [phone] | | | +--------+ + + + [...] | | | | | | [place] [address] | | | | | | [phone] | | | | | | | | +--------+ + + + + documented as of this encounter Visit Diagnoses Not on filedocumented in this encounter"
--- OUTSIDE RECORDS SUMMARY | ~2020-06-03 | XMS | Encounter Summary ---
Demographics + + + | Address | [address] | | | [place] [address] | + + + | Home Phone [...] Providers + +------+ + | Care Trimming Inspector Name | Role | Phone | [...] [address]VE | | | | | [address] [facility] | [place], [place] | | | | | [place], [place] | [address] | | | | | [address] | | | | | | [phone] | | | +--------+ + + + [...] | | | | | | [place] [address] | | | | | | [phone] | | | | | | | | +--------+ + + + + documented as of this encounter Visit Diagnoses Not on filedocumented in this encounter"
--- OUTSIDE RECORDS SUMMARY | ~2020-06-03 | XMS | Encounter Summary ---
Demographics + + + | Address | [address] | | | [place] [address] | + + + | Home Phone [...] | | | | | | [address] [place], [place] | | | | | | [address] | | | | | | [phone] | | | +--------+ + + + [...] | | | | | | [place] [address] | | | | | | [phone] | | | | | | | | +--------+ + + + + documented as of this encounter Visit Diagnoses Not on filedocumented in this encounter"
--- OUTSIDE RECORDS SUMMARY | ~2020-06-03 | XMS | Encounter Summary ---
Demographics + + + | Address | [address] | | | [place] [address] | + + + | Home Phone [...] Providers + +------+ + | Care Drapery Worker Name | Role | Phone | [...] | SYSTEM GENERIC OP | MD [address] | loss; Anxiety | | | | CONVERSION [address] | [address] [place], [place] | disorder; Chronic | | | | [address] [place], [place] | [address] | pain syndrome; | | | | [address] | | Obesity; Neuralgia | | | | [phone] | | and neuritis, | | | [...] W | | | | | | [place], | | | | | | [place] [address] | | | | | | [phone] | | | | | | | [...]
--- OUTSIDE RECORDS SUMMARY | ~2020-06-03 | XMS | Encounter Summary ---
Demographics + + + | Address | [address] | | | [place] [address] | + + + | Home Phone [...] Providers + +------+ + | Care Account Services Analyst Name | Role | Phone [...] + | 01/30/ | Telephone | [facility] | [place], | Other (medication | | 2019 | | CARDIOLOGY [address] | [place] [address] | question) | | | | [place], | [place], | | | | | [place] [address] | [place] [address] | | | | | [phone] | [phone] | | | | | | | [...] RN - 02/02/2020 2:36 PM PDTPatient notified, [facility] leg swelling is gone ..........................................El radha Valentine RN on 02/02/20 at 2:37 PM elephone [facility] RN - 02/01/2020 12:43 PM PDTLeft [...] and the physician who prescribed Lyrica at [facility] in [place] suggested he get BLE ultrasounds to check for DVT's. He would like to get ultr asounds done here at [place]. I returned patients call and informed him of Janeen's last message on this note, and patien t states he wants to stop taking Lyrica because of this side effect. He states he is still h aving foot pain because of the edema. I advised patient to follow up today with the [place] clinic to notify them and obtain the ul trasound orders and complete them here at [facility]. He will notify us of any worsening [...] that he sees a pain specialist in [place] and they would like him to star [...] | | | | | | [place] [address] | | | | | | [phone] | | | | | | | | +--------+ + + + + documented as of this encounter Visit Diagnoses Not on filedocumented in this encounter
--- OUTSIDE RECORDS SUMMARY | ~2020-06-03 | XMS | Encounter Summary ---
Demographics + + + | Address | [address] | | | [place] [address] | + + + | Home Phone [...] Providers + +------+ + | Care Stock Digger Name | Role | Phone | [...] 2019 | | GASTROENTEROLOGY | [address], [place] | | | | | [address] [place] | [address] [place], [place] | | | | | [address] [place], [place] | [address] | | | | | [address] | | | | | | [phone] | | | +--------+ + + + [...] with plan to go to ER in [place].......... ..................................Kasie Ashley RN on 12/29/18 at 15:39 [...] | | | | | | [place] [address] | | | | | | [phone] | | | | | | | | +--------+ + + + + documented as of this encounter Visit Diagnoses Not on filedocumented in this encounter"
--- OUTSIDE RECORDS SUMMARY | ~2020-06-03 | XMS | Encounter Summary ---
Demographics + + + | Address | [address] | | | [place] [address] | + + + | Home Phone [...] Providers + +------+ + | Care Crown Ceramist Name | Role | Phone | + [...] | 01/25/ | Telephone | [facility] | Daljit Singletary, | Appointment | | 2017 | | CARDIOLOGY [address] | [address] [place] | | | | | [place], | [place], | | | | | [place] [address] | [place] [address] | | | | | [phone] | [phone] | | | | | | | [...] Ramirez and Geri Angel. Patient recently seen [facility] ER and has been referred for follow-up by ER provider. Referral number [id number] has been created. Called patient, left [facility] with request for patient to call [...] | | | | | | [place] [address] | | | | | | [phone] | | | | | | | | +--------+ + + + + documented as of this encounter Visit Diagnoses Not on filedocumented in this encounter"
--- OUTSIDE RECORDS SUMMARY | ~2020-06-03 | XMS | Encounter Summary ---
Demographics + + + | Address | [address] | | | [place] [address] | + + + | Home Phone [...] Team Providers + +------+ + | Care Cementing Bulk Material Operator Name | Role | Phone | [...] | | | | CENTER [address] | [address] | | | | | [place] | [place] | | | | | [address] | [address] | | | | | [phone] | | | +--------+ + + + [...] + + + +---------+ + + | [place]-3 Fatty | CAPS, one capsule by | [...] | | | | | | | iroquois coronary | | | | | | | artery of iroquois | | | | | | | [...] might be different fr om the original. [facility] Moe Sanchez Emergency Department Encounter Note [address] [place] [address] PCP:Kirk French MD [phone] eMERGENCY dEPARTMENT eNCOUnter [...] GASTROINTESTINAL ENDOSCOPY N/A 01/05/2019 Procedure: EGD; Surgeon: Emmaunel Daniel MD; Location: [facility] MEDICAL PROCEDURE UNIT URETEROSCOPY Left 04/13/2019 Procedure: Cystoscopy, Left ureteroscopy with laser lithotripsy, Left ureteral stent place ment; Surgeon: Matthew Uriarte MD; Location: [facility] MAIN OR VASECTOMY CURRENT MEDICATIONS ASPHALT PLANT OPERATOR Home Medications Medication Sig amLODIPine (NORVASC) 5 [...] NO RELIEF AFTER 3RD DOSE, CALL 911 [place]-3 Fatty Acids (SALMON OIL-1000 PO) CAPS, one [...] deficits noted, no facial assymetry noted. Equal wetlands technician in all extremities EKG Interpretation Interpreted by emergency department physician Rhythm: normal sinus atrial paced Rate: 73 [place]: normal Ectopy: none Conduction: P wave normal, [...] this chart may have been created with NovaPlanner voice recognition software. Occasi onal wrong-word or [...] | | | | | | [place] [address] | | | | | | [phone] | | | | | | | [...] W?MRN: | | | | | | [id number] | | | [id number] | | | riteri | | | [...] | | | St. | | | [place] | | | y | | | [...] | | | St. | | | [place] | | | y | | | [...] | | | St. | | | [place] | | | y H. | | [...] | | | St. | | | [place] | | | y H. | | [...] | | | M.D. | | | Emergency Medicine | | | al | | | [...] | | | ent/60 | | | [id number] | | | -[id number]- | | | [...] + | [facility] | [address] | [place] | [phone] | | [facility] | | [address] | | | - LABORATORY | | [...] [address] | [place] | [phone] | | [facility] | | [address] | | | - LABORATORY | | [...] use as of January 18 | | [facility] | | | | 2018. [...] [address] | [place] | [phone] | | [facility] | | [address] | | | - LABORATORY | | [...] | 0.92 | 0.70 - 1.30 | [facility] | | | | | mg/dL | [facility] | | | | | | MEDICAL | | | | | | CENTER - | | | | | | LABORATORY | | + + + + + + | eGFR if not | >60Comment: GLOMERULAR | >=60 | [facility] | | | | FILTRATION | mL/min/1.73m2 | [facility] | | | SWEDISH | RATE,ESTIMATED | | MEDICAL | | | | mL/min/1.64g2Dmct than | | CENTER - | | [...] | 9.6 | 8.7 - 10.4 | [facility] | | | | | mg/dL | [facility] | | | | | | [...] + | [facility] | [address] | [place] | [phone] | | [facility] | | [address] | | | - LABORATORY | | [...] + | [facility] | [address] | [place], [place] | [phone] | | [facility] | | [address] | | | - LABORATORY | | [...] [address] | [place] | [phone] | | [facility] | | [address] | | | - LABORATORY | | [...] | | | | ANGELA MARADIAGA MD ([id number]) | | | | | | on [...] | | | | | Patient Address: [address] [place] [address] | | | | | | | [place] [address], | | | | | | + + + +------+---+---+ +---+---+ | | | +---+---+ documented in this encounter
--- OUTSIDE RECORDS SUMMARY | ~2020-06-03 | XMS | Encounter Summary ---
Demographics + + + | Address | [address] | | | [place] [address] | + + + | Home Phone [...] Providers + +------+ + | Care Road Traffic Controller Name | Role | Phone [...] CARDIOLOGY [address] | MD [address] [place] | | | | | [place], | [place], | | | | | [place] [address] | [place] [address] | | | | | [phone] | [phone] | | | | | | | [...] | | | | | | [place] [address] | | | | | | [phone] | | | | | | | | +--------+ + + + + documented as of this encounter Visit Diagnoses Not on filedocumented in this encounter"
--- OUTSIDE RECORDS SUMMARY | ~2020-06-03 | XMS | Encounter Summary ---
Demographics + + + | Address | [address] | | | [place] [address] | + + + | Home Phone [...] Providers + +------+ + | Care Engineering Writer Name | Role | Phone | [...] | | | | | | [place] [address] | | | | | | [phone] | | | +--------+ + + + [...] | | | | | | [place] [address] | | | | | | [phone] | | | | | | | | +--------+ + + + + documented as of this encounter Visit Diagnoses Not on filedocumented in this encounter"
--- OUTSIDE RECORDS SUMMARY | ~2020-06-03 | XMS | Encounter Summary ---
Demographics + + + | Address | [address] [place] [address] [address] | | | [place] [address] | + + + | Home Phone [...] [place] | | | | | [address] | | + + + + + Care Team Providers + +------+ + | Care Dot Net Architect Name | Role | Phone | [...] | | | | | unspecified | [address] | | | | | | type Rectal | Ave | | | | | | bleeding | [facility] [place] | | | | | | Procedures | [address] | | | | | | CONSULT TO | Phone: | | | | | | GASTROENTERO | [phone] | | | | | | LOGY | Fax: | | | | | | | [phone] | | + +--------+ + + + [...] | | | | | Procedures | [place], [place] | [facility] and | | | | | CONSULT TO | [address] | Healing, | | | | | ENDOSCOPY | Phone: | Building 2 | | | | | UNIT: SM | [phone] | [place], [place] | | | | | BOWEL | Fax: | [address] | | | | | CAPSULE | [phone] | Phone: | | | | | ENDOSCOPY | | [phone] | | | | | | | Fax: | | | | | | | [phone] | + +--------+ + + + + [...] | | | | | bleeding | [place], [place] | [facility] and | | | | | Procedures | [address] | Healing, | | | | | CONSULT TO | Phone: | Building 2 | | | | | ENDOSCOPY | [phone] | [place], [place] | | | | | UNIT: | Fax: | [address] | | | | | COLONOSCOPY | [phone] | Phone: | | | | | | | [phone] | | | | | | | Fax: | | | | | | | [phone] | +--------+--------+ + + + + Reason [...] | | 2020 | | Center at [facility] [address] | MD [address] | | | | | [address] [place] | [place], [place] | | | | | for Health and | [address] | | | | | Healing, Building [address] | [phone] | | | | | [place], [place] | | | | | | [address] | | | | | | [phone] | | | +--------+ + + + [...]
--- OUTSIDE RECORDS SUMMARY | ~2020-06-03 | XMS | Encounter Summary ---
Demographics + + + | Address | [address] | | | [place] [address] | + + + | Home Phone [...] Team Providers + +------+ + | Care Marinator Name | Role | Phone | + +------+ + | Kirk French MD | PCP | | + +------+ + Encounter Details +--------+ + + + + | Date | Type | Department | Care Team | Description | +--------+ + + + + | 12/24/ | [facility] | [facility] | Emmanuel Daniel MD | Pain of upper | | 2018 | Encounter | MED CTR MP INTRA OP | [address], [place] | abdomen (Primary | | | | [address] | [address] [place], [place] | Dx); Functional | | | | [place] | [address] | diarrhea; Weight | | | | [address] | | loss | | | | [phone] | | | +--------+ + + + [...] + + + +---------+ + + | Piru-3 Fatty | CAPS, one capsule by | [...] any noct urnal symptoms. He was in [facility] 2 years ago and required hospitalization [...] severe diarrhea probable infective occurring while visiting [facility] Diarrhea etiology and significance to be [...] Endoscopy Patient: Moe Sanchez : 1960 Acct: [id number] Exam Date: Sunday, December 24, 2017 Doctor: [...] If unable to reach your physician, call [facility] Emergency Department at [address]. 2500 Your doctor [...] Exams Patient: Moe Sanchez : 1960 Acct: [id number] Exam Date: Sunday, December 24, 2017 Doctor: [...] If unable to reach your physician, call [facility] Emergency Department at [address]. [address] Your doctor [...] | | | | | | [place] [address] | | | | | | [phone] | | | | | | | [...] + + | Performed at: 01 - [facility] [address], | REFERENCE LAB | | [place], [place] [id number] Delivery Crew Member: William Andrew MD, Phone: | ARSH - KINA | | [phone] | | + + + + + + + + | Performing | Address | City/State/Zipcode | Phone Number | | Organization | | | | + + + + + | REFERENCE LAB | [address] | [place], [place] | [phone] | | [facility] | [place] | [address] | | + + + + + [...] [address] | [place] | [phone] | | [facility] | | [address] | | | - LABORATORY | | [...] [address] | [place] | [phone] | | [facility] | | [address] | | | - LABORATORY | | [address] | [place] | [phone] | | [facility] | | [address] | | | - LABORATORY | | [...] + + | Performed at: 01 - [place] [address], | REFERENCE LAB | | [place], [place] [id number] Delivery Crew Member: William Andrew MD, Phone: | ARSH CASTANON | | [phone] | | + + + + + + + + | Performing | Address | City/State/Zipcode | Phone Number | | Organization | | | | + + + + + | REFERENCE LAB | [address] | [place], [place] | [phone] | | [facility] | Drive [facility] | [address] | | + + + + + [...] ST. | [address] | [place], [place] | [phone] | | [facility] | | [address] | | | - LABORATORY | | [...] [address] | [place] | [phone] | | [facility] | | [address] | | | [...] | [address] | [address] | [place] | [phone] | | [facility] | | [address] | | | - LABORATORY | | [...] [address] | [place] | [phone] | | [facility] | | [address] | | | - LABORATORY | | [...] [address] | [place] | [phone] | | [facility] | | [address] | | | - LABORATORY | | | | + + + + + DAVIAN (12/24/2017 1:19 PM PST) + + | Specimen | + + | | + + + + -+ | Narrative | Performed At | + + -+ | | [facility] | | GastroenterologyPatient Name: Moe SanchezProcedpasha Date: 12/24/2017 | [facility] | | 1:19 PMMRN: [id number] #: [id number] of : | | | 9Admit Type: AmbulatoryAge: 57Room: [facility] 01Gender: MaleNote | | | Status: FinalizedAttending MD: Emmanuel Daniel , MDProcedure: | | | Upper GI endoscopyIndications: Diarrhea, Weight | | | lossProviders: Emmanuel Daniel MD, Maria Isabel Morris RN, | | | Kim Hicks, Physical Therapy Aid, Jarett | | | Sapna Barakat MD [...] the anesthesiologist and | | | the endoscopy specialty technician in the endoscopy suite. Mental Status [...] PMScope Out: 1:31:13 PM | | | [facility], [address] [facility] | | | [place] [address] | | | - Discharge patient to [...] |Scope Out: 1:31:13 PM | | | [facility], [facility] [place], [place] | | | [address] | | + + -+ + +---------+ [...] 12/24/2017 | [facility] | | 1:17 PMMRN: [id number] #: [id number] of : | | | 9Admit Type: AmbulatoryAge: 57Room: [facility] 01Gender: MaleNote | | | Status: FinalizedAttending MD: Emmanuel Daniel , MDProcedure: | | | ColonoscopyIndications: Clinically significant diarrhea of | | | unexplained originProviders: Emmanuel Daniel MD, Maria Isabel | | | Arturo, RN, Kim Hicks, Physical Therapy Aid, | | | Jarett Barakat MD (Anesthesia [...] | | | the anesthesiologist and the endoscopy specialty technician in the endoscopy suite. | | [...] Scope In: 1:32:55 PMScope Out: 1:48:57 PM [facility] | | | [facility], [place] [address] | | | [phone] | | | - Await pathology results. [...] |Scope Out: 1:48:57 PM | | | [facility], [address] [facility], [place], [place] | | | [address] | | + + -+ + +---------+ [...] | colonic mucosa with focal adenomatous change. [facility]:C2NR | | | GROSS DESCRIPTION: Received in four parts. A. Received in | | | formalin labeled "Moe Wray, A." and labeled "duodenal bx" on | [...] | | cm, submitted, all in (D1). ka:CLR:[facility] ADDITIONAL NOTES: | | | Immunohistochemical studies were performed on this case with the | | | appropriate positive controls that react as expected. This test was | | | developed and its performance characteristics determined by [employer] | | | [facility]. It has not been cleared or approved by the U.S. Food | | | and Drug Administration. The FDA has determined that such clearance | | | or approval is not necessary. This test is used for clinical | | | purposes. It should not be regarded as investigational or for | | | research. [facility] is certified under the Clinical | | | Laboratory Improvement Amendments of 1988 (CLIA) as qualified to | | | perform high complexity clinical laboratory testing. This assay | | | has not been validated for specimens that have been decalcified. | | | PERFORMING LABORATORY: Tissue processing and slide preparation were | | | performed by [facility], [address], [facility] | | | [place] [address] (Basin Finish Operator Tig Welder: Evan Frausto M.D. CLIA#: | | | [id number]). Professional interpretation was performed by [employer] | | | [facility], [address], [place] [address] | | | (Basin Finish Operator Tig Welder: Evan Frausto M.D.; IA#: [id number]). | | | Diagnostician: Rafael Bales MD [...]
--- OUTSIDE RECORDS SUMMARY | ~2020-06-03 | XMS | Encounter Summary ---
Demographics + + + | Address | [address] | | | [place] [address] | + + + | Home Phone [...] Providers + +------+ + | Care Catalyst Operator Chief Name | Role | Phone [...] [address] | | | | | [address] | [place] [address] | | | | | [phone] | [phone] | | | | | | | [...] | | | | | | [place] [address] | | | | | | [phone] | | | | | | | [...]
--- OUTSIDE RECORDS SUMMARY | ~2020-06-03 | XMS | Encounter Summary ---
Demographics + + + | Address | [address] | | | [place] [address] | + + + | Home Phone [...] + + | 01/05/ | Surgery | [facility] | Emmanuel Daniel MD | EGD | | 2019 | | MED CTR MP INTRA OP | [address], [place] | | | | | [address] | [address] [place], [place] | | | | | [place], [place] | [address] | | | | | [address] | | | | | | [phone] | | | +--------+---------+ + + + [...] for a few hours. Date Last Reviewed: 09/22/201619996426-0665 [employer]. [address] [place] [address]. All righ ts reserved. This information is [...] vomiting, or vomiting blood Date Last Reviewed: 05/22/201619991527-5846 [employer]. [address] [place] [address]. All righ ts reserved. This information is [...] You can't be awakened Date Last Reviewed: 09/08/201619993857-1813 [employer]. [address] [place] [address], [place] [address]. All righ ts reserved. This information is [...] + + + +---------+ + + | [place]-3 Fatty | CAPS, one capsule by | [...] of diarrhea since serving in the in [facility]. His last episodes of diarrhea started in [...] disease. CT scan done through [facility] November s howed mild diverticulosis without [...] Endoscopy Patient: Moe Sanchez : 1960 Acct: [id number] Exam Date: December Doctor: Emmanuel Daniel MD [...] If unable to reach your physician, call [facility] Emergency Department at Ext. [address] Your doctor [...] Exams Patient: Moe Sanchez : 1960 Acct: [id number] Exam Date: December Doctor: Emmanuel Daniel MD [...] If unable to reach your physician, call [facility] Emergency Department at [address]. [address] Your doctor [...] | | | | | [place], | | | | | | [place] [address] | | | | | | [phone] | | | | | | | [...] 01 - [address], | REFERENCE LAB | | [place], [place] [id number] Proposal Consultant: Miguel Galarza MD, Phone: | [facility] | | [phone] | | + + + + + + + + | Performing | Address | City/State/Zipcode | Phone Number | | Organization | | | | + + + + + | REFERENCE LAB | [address] | [place], [place] | [phone] | | [facility] | [facility] | [address] | | + + + + + [...] | REFERENCE LAB | | [place] [phone] Proposal Consultant: Miguel Galarza MD, Phone: | [facility] | | [phone] | | + + + + + + + + | Performing | Address | City/State/Zipcode | Phone Number | | Organization | | | | + + + + + | REFERENCE LAB | [address] | [place] | [phone] | | [facility] | [facility] | [address] | | + + + + + [...] [address] | [place] | [phone] | | [facility] | | [address] | | | - LABORATORY | | [...] [address] | [place] | [phone] | | [facility] | | [address] | | | - LABORATORY | | [...] [address] | [place] | [phone] | | [facility] | | [address] | | | - LABORATORY | | [...] [address] | [place] | [phone] | | [facility] | | [address] | | | [...] [address] | [place] | [phone] | | [facility] | | [address] | | | - LABORATORY | | [...] [address] | [place] | [phone] | | [facility] | | [address] | | | - LABORATORY | | | | + + + + + EGD (01/05/2019 8:36 AM PST) + + | Specimen | + + | | + + + + -+ | Narrative | Performed At | + + -+ | | [facility] | | GastroenterologyPatient Name: Moe Venegas Date: | [facility] | | 01/05/2019 8:36 AMMRN: [id number] #: [id number] of : | | | 9Admit Type: AmbulatoryAge: 58Room: [facility] 01Gender: MaleNote | | | Status: FinalizedAttending MD: Emmanuel Daniel , MDProcedure: | | | Upper GI endoscopyIndications: Diarrhea, Weight | | | lossProviders: Emmanuel Daniel MD, Heidi Akinsfield, | | | RN, Kim Hicks, Nurse Practitioner, | | | Jarett Barakat MD (Anesthesia [...] physician, the nurse, the anesthesiologist and the unit technician | | | in the endoscopy [...] | | Imaging was performed using the [employer] | | | Endoscopy (FICE) [...] Scope In: 8:43:57 AMScope Out: 8:49:50 AM [facility]. | | | [facility], [address] [place] [address] | | | [phone] | | |Recommendation: | | | - [...] |Scope Out: 8:49:50 AM | | | [facility]. [facility], [address] [place] [address] | | | [address] | | + + -+ + +---------+ [...] | [facility] | | 01/05/2019 8:36 AMMRN: [id number] #: [id number] of : | | | 9Admit Type: AmbulatoryAge: 58Room: [facility] 01Gender: MaleNote | | | Status: FinalizedAttending MD: Emmanuel Daniel [facility] | | | ColonoscopyIndications: Clinically significant diarrhea of | | | unexplained origin, Weight lossProviders: | | | Emmanuel Daniel MD, Heidi An RN, [place] | | | Fiorella Hicks, Nurse Practitioner, Jarett Alejo | | | MD Roshni [...] | | | the anesthesiologist and the unit technician in the endoscopy suite. | | [...] AMScope Out: | | | 9:06:28 AM [facility], [address] [facility], | | | [place] [address] | | | - Discharge patient to [...] |Scope Out: 9:06:28 AM | | | [facility], [address] [facility], [place], [place] | | | [address] | | + + -+ + +---------+ [...] | | | (atherosclerotic heart disease of ione coronary artery without | | | angina [...] | | | microscopic colitis. BES:[facility]:C3NR GROSS DESCRIPTION: A. The | | | specimen, labeled "Munith, duodenal biopsy" is received in formalin | | | and consists of seven 0.1-0.5 cm lin fragments. Entirely submitted in | | | (A1). B. The specimen, labeled "Munith, right colon" is received | | | in formalin and consists of six 0.2-0.3 cm lin fragments. Entirely | | | submitted in (B1). C. The specimen, labeled "Munith, left colon" | | | is received in formalin and consists of six 0.2-0.3 cm lin-pink | | | fragments. Entirely submitted in (C1). am:AMB:rds PERFORMING | | | LABORATORY: The technical component was performed by [facility] [employer] | | | [employer], [address] [place] [address] (Site Safety Manager: | | | Kailey Stafford MD; CLIA# [id number]). Professional interpretation was | | | performed by [facility], [facility] | | | [place] [address] (Site Safety Manager: [place] | Shanique Dao M.D.; CLIA#: [id number]). Diagnostician: Ishaan Fitzpatrick | | | Sylwia [...]
--- OUTSIDE RECORDS SUMMARY | ~2020-06-03 | XMS | Encounter Summary ---
Demographics + + + | Address | [address] | | | [place] [address] | + + + | Home Phone [...] | + + +---------+ + | Nadine iKngsley | ECON | Unknown | | + + +---------+ + Care Team Providers + +------+ + | Care Inside Sales Specialist Name | Role | Phone [...] | | | [address] | [place] [address] | | | | | [address] | | | | | | [phone] | | | +--------+ + + + [...] | | | | | | [place] [address] | | | | | | [phone] | | | | | | | | +--------+ + + + + documented as of this encounter Visit Diagnoses Not on filedocumented in this encounter"
--- OUTSIDE RECORDS SUMMARY | ~2020-06-03 | XMS | Encounter Summary ---
Demographics + + + | Address | [address] | | | [place] [address] | + + + | Home Phone [...] Providers + +------+ + | Care Certified Lactation Educator Name | Role | Phone | [...] Refill | | 2013 | | [facility] | DO [address] | | | | | [address] | [place] | | | | | [place], [place] | [address] | | | | | [address] | | | | | | [phone] | | | +--------+--------+ + + + [...] | | | | | | [place] [address] | | | | | | [phone] | | | | | | | | +--------+ + + + + documented as of this encounter Visit Diagnoses Not on filedocumented in this encounter"
--- OUTSIDE RECORDS SUMMARY | ~2020-06-03 | XMS | Encounter Summary ---
Demographics + + + | Address | [address] | | | [place] [address] | + + + | Home Phone [...] Team Providers + +------+ + | Care Kier Tender Name | Role | Phone | [...] [place], | | | | | | [place] [address] | | | | | | [phone] | | | +--------+ + + + [...] | | | | | | [place] [address] | | | | | | [phone] | | | | | | | | +--------+ + + + + documented as of this encounter Visit Diagnoses Not on filedocumented in this encounter"
--- OUTSIDE RECORDS SUMMARY | ~2020-06-03 | XMS | Encounter Summary ---
Demographics + + + | Address | [address] | | | [place] [address] | + + + | Home Phone [...] Providers + +------+ + | Care Fiber Drier Operator Name | Role | Phone [...] + + | 05/03/ | Telephone | [facility] | Kirk French | Medication Orders | | 2019 | | [facility] | MD [address] | | | | | [facility] [address] | [address] | | | | | [address] | [place] [address] | | | | | [place], [place] | [phone] | | | | | [address] | | | | | | [phone] | | | +--------+ + + + [...] | | | | | | [place] [address] | | | | | | [phone] | | | | | | | | +--------+ + + + + documented as of this encounter Visit Diagnoses Not on filedocumented in this encounter"
--- OUTSIDE RECORDS SUMMARY | ~2020-06-03 | XMS | Encounter Summary ---
Demographics + + + | Address | [address] | | | [place] [address] | + + + | Home Phone [...] Providers + +------+ + | Care Choir Leader Name | Role | Phone | [...] Refill | | 2013 | | [facility] [place] | DO [address] | | | | | [address] | [place] | | | | | [place], [place] | [address] | | | | | [address] | | | | | | [phone] | | | +--------+--------+ + + + [...] | | | | | | [place] [address] | | | | | | [phone] | | | | | | | | +--------+ + + + + documented as of this encounter Visit Diagnoses Not on filedocumented in this encounter"
--- OUTSIDE RECORDS SUMMARY | ~2020-06-03 | XMS | Encounter Summary ---
Demographics + + + | Address | [address] | | | [place] [address] | + + + | Home Phone [...] Providers + +------+ + | Care Research Librarian Name | Role | Phone | + +------+ + PCP | Unavailable | + +------+ + Encounter Details +--------+ + + + + | Date | Type | Department | Care Team | Description | +--------+ + + + + | 05/13/ | Hospital | [facility] | | | | 2007 | Encounter | MED CTR EMERGENCY | | | | | | [address] | | | | | | [place] | | | | | | [address] | | | | | | [phone] | | | +--------+ + + + [...] | | | | | | [place] [address] | | | | | | [phone] | | | | | | | | +--------+ + + + + documented as of this encounter Visit Diagnoses Not on filedocumented in this encounter"
--- OUTSIDE RECORDS SUMMARY | ~2020-06-03 | XMS | Encounter Summary ---
Demographics + + + | Address | [address] | | | [place] [address] | + + + | Home Phone [...] Providers + +------+ + | Care Packing Checker Name | Role | Phone | [...] [address] | | | | | [address] | [place], [place] | | | | | [phone] | [address] | | | | | | [phone] | | | | | | | [...] Notes by Kylah Fraser CMA at 04/11/18 9587 Author: Kylah Fraser CMA Service: (none) Author Type: Jalousies Installer Filed: 04/19/18 1118 Encounter Date: 04/11/2018 Status: Signed Investment Executive: Kylah Fraser CMA (Jalousies Installer) See telephone encounter 04/19/18. docume nted in [...] | | | | | | [place], | | | | | | [place] [address] | | | | | | [phone] | | | | | | | [...]
--- OUTSIDE RECORDS SUMMARY | ~2020-06-03 | XMS | Encounter Summary ---
Demographics + + + | Address | [address] | | | [place] [address] | + + + | Home Phone [...] Providers + +------+ + | Care Stone Crusher Operator Name | Role | Phone [...] + + | 06/02/ | Telephone | [facility] | AnshujohnsoncherelleRashadotto, | Other (symptoms) | | 2019 | | CARDIOLOGY [address] | MD [address] | | | | | [place], | [place], | | | | | [place] [address] | [place] [id number] | | | | | [phone] | [phone] | | | | | | | [...] 06/02/2019 5:08 PM PDTPatient left [facility] Called patient and spoke with him about his symptoms. He is having baljit st pain and shortness of breath, dizziness and lightheadedness where he is almost passes out . "When heart is fluttering it knocks me over". Instructed patient to go to the ER immediate ly. He refuses because he lives in [place] and doesn't want to go to [facility]. He sta marcos he has [...] | | | | | | [place] [address] | | | | | | [phone] | | | | | | | | +--------+ + + + + documented as of this encounter Visit Diagnoses Not on filedocumented in this encounter
--- OUTSIDE RECORDS SUMMARY | ~2020-06-03 | XMS | Encounter Summary ---
Demographics + + + | Address | [address] | | | [place] [address] | + + + | Home Phone [...] Team Providers + +------+ + | Care Photocopier Technician Name | Role | Phone | + +------+ + PCP | Unavailable | + +------+ + Encounter Details +--------+ + + + + | Date | Type | Department | Care Team | Description | +--------+ + + + + | 05/02/ | [facility] | [facility] | Jonathan, | | | 2009 | Encounter | MED CTR EMERGENCY | Martell Cr MD [address] | | | | | CENTER [address] [place] | [address] [place] | | | | | [place] | [place] [address] | | | | | [address] | [phone] | | | | | [phone] | | | +--------+ + + + [...] | | | | | | [place] [address] | | | | | | [phone] | | | | | | | | +--------+ + + + + documented as of this encounter Visit Diagnoses Not on filedocumented in this encounter"
--- OUTSIDE RECORDS SUMMARY | ~2020-06-03 | XMS | Encounter Summary ---
Demographics + + + | Address | [address] | | | [place] [address] | + + + | Home Phone [...] Providers + +------+ + | Care Physical Education Instructor Name | Role | Phone | [...] + | 01/04/ | Telephone | [facility] | [place]via, | Other ( RECORDS | | 2012 | | CARDIOLOGY [address] | [address] | DISCLOSURE) | | | | [place], | [place], | | | | | [place] [address] | [place] [address] | | | | | [phone] | [phone] | | | | | | | [...] faxed today att. To Dr Gambino at [facility] fax [phone] : Holter Monitor 01/20/10 EKG 05/14/11 Labs 05/27/12, 12/12/12 Operative report 06/14/09 Stress test 06/15/08 CT of chest 04/23/08 elep le Encounter - Tessie Rock - 01/04/2013 3:43 PM PSTThe following records have been faxed to Jay Gambino MD at [facility], phone [phone] and fax [phone]: Demographics Echo 12/30/12 OC 01/03/13, 12/21/12 C [...] | | | | | | [place] [address] | | | | | | [phone] | | | | | | | | +--------+ + + + + documented as of this encounter Visit Diagnoses Not on filedocumented in this encounter"
--- OUTSIDE RECORDS SUMMARY | ~2020-06-03 | XMS | Encounter Summary ---
Demographics + + + | Address | [address] | | | [place] [address] | + + + | Home Phone [...] Providers + +------+ + | Care Brass Instrument Repair Technician Name | Role | Phone [...] + | 03/24/ | Telephone | [facility] | [place], | Other (chest pain) | | 2018 | | CARDIOLOGY [address] | Janeen SOLE ROUGHER [address] | | | | | [place], | [place], | | | | | [place] [address] | [place] [address] | | | | | [phone] | [phone] | | | | | | | [...] | | | | | | [place] [address] | | | | | | [phone] | | | | | | | | +--------+ + + + + documented as of this encounter Visit Diagnoses Not on filedocumented in this encounter"
--- OUTSIDE RECORDS SUMMARY | ~2020-06-03 | XMS | Encounter Summary ---
Demographics + + + | Address | [address] | | | [place] [address] | + + + | Home Phone [...] + +------+ + | Care Manager Of Business Name | Role | Phone | + +------+ + | Kirk French MD | PCP | | + +------+ + Encounter Details +--------+ + + + + | Date | Type | Department | Care Team | Description | +--------+ + + + + | 07/21/ | [facility] | [facility] | Daljit Singletary, | Palpitations; | | 2018 | Encounter | MED CTR NUCLEAR | MD [address] [place] | Presence of | | | | MEDICINE [address] | [place], | permanent cardiac | | | | [place], | [place] [address] | pacemaker; | | | | [place] [address] | [phone] | Sinoatrial node | | | | [phone] | | dysfunction (HCC) | +--------+ + [...] + + + +---------+ + + | [place]-3 Fatty | CAPS, one capsule by | [...] 1:11 PM PDTAssociated Order(s): EVENT MONITOR [facility] from 07/21 until 08/22/2018. [...] | | | | | | [place], | | | | | | [place] [address] | | | | | | [phone] | | | | | | | [...] 08/25/2018 13:12 Wireless even study from | [place]ER[place] | | 07/21 until 08/22/2018. Baseline [...]
--- OUTSIDE RECORDS SUMMARY | ~2020-06-03 | XMS | Encounter Summary ---
Demographics + + + | Address | [address] | | | [place] [address] | + + + | Home Phone [...] + + | 09/29/ | Hospital | [facility] | | | | 1995 | Encounter | MED CTR EMERGENCY | | | | | | [address] | | | | | | [place] | | | | | | [address] | | | | | | [phone] | | | +--------+ + + + [...] | | | | | | [place] [address] | | | | | | [phone] | | | | | | | | +--------+ + + + + documented as of this encounter Visit Diagnoses Not on filedocumented in this encounter"
--- OUTSIDE RECORDS SUMMARY | ~2020-06-03 | XMS | Encounter Summary ---
Demographics + + + | Address | [address] | | | [place] [address] | + + + | Home Phone [...] Team Providers + +------+ + | Care Sausage Tier Name | Role | Phone | [...] + + | 12/29/ | Office | [facility] | [place], | Ascending thoracic | | 2017 | Visit | CARDIOLOGY [address] | [address] | aortic aneurysm | | | | [place], | [place], | ([facility]) (Primary Dx); | | | | [place] [address] | [place] [address] | Coronary artery | | | | [phone] | [phone] | disease involving | | | | | | moapa coronary | | | | | | [...] of non-critical coronary artery d isease involving moapa coronary artery of moapa heart without angina pectoris, essential h ypertension, [...] he went to the ER in [facility] with chest pain at the end [...] Preventative health care Coronary artery disease involving moapa coronary artery of moapa heart without angina pectoris Cannabis abuse, daily [...] mouth every evening 90 tablet 3 [facility] Natural Products (OSTEO BI-FLEX/5-LOXIN ADVANCED PO) Take [...] 3RD DOSE, CALL 911 100 tablet 3 [place]-3 Fatty Acids (SALMON OIL-1000 PO) CAPS, one [...] was found Confirmed by SYDNI SINGLETARY MD ([id number]) on 06/23/2016 2:08:15 PM LAB RESULTS reviewed during visit today primarily from [facility]: LIPID Lab Results Component Value Date [...] PLTEX 129* 05/12/2016 I reviewed records from [facility] for office visit on 09/01/2016 which [...] He is in class I of the [place] Heart [employer] functional class. On physical examination there are no signs of fl uid overload. 2. Non-critical Coronary artery disease involving moapa coronary a rtery of moapa heart without angina pectoris: A. Normal exercise [...] to go back in 3 days to [place] for an attempt of ablation under [...] is a normal stable device function. Estimated RuckPacki ng battery longevity is 5 years.. 5. [...] this chart may have been created with Honk voice recognition software. Occasi onal wrong-word or [...] | | | | | | [place] [address] | | | | | | [phone] | | | | | | | | +--------+ + + + + documented as of this encounter Visit Diagnoses + + | Diagnosis | + + | Ascending thoracic aortic aneurysm (HCC) - Primary Thoracic aneurysm without mention | | of rupture | + + | Coronary artery disease involving moapa coronary artery of moapa heart without | | angina pectoris | + + | Essential hypertension with goal blood pressure less than 130/80 | + + | Hyperlipidemia, mixed Mixed hyperlipidemia | + + documented in this encounter
--- OUTSIDE RECORDS SUMMARY | ~2020-06-03 | XMS | Encounter Summary ---
Demographics + + + | Address | [address] | | | [place] [address] | + + + | Home Phone [...] + +------+ + | Care Social Media Content Specialist Name | Role | Phone [...] Refill | | 2013 | | [facility] [place] | DO [address] | | | | | [address] | [place] | | | | | [place], [place] | [address] | | | | | [address] | | | | | | [phone] | | | +--------+--------+ + + + [...] | | | | | | [place] [address] | | | | | | [phone] | | | | | | | | +--------+ + + + + documented as of this encounter Visit Diagnoses Not on filedocumented in this encounter"
--- OUTSIDE RECORDS SUMMARY | ~2020-06-03 | XMS | Encounter Summary ---
Demographics + + + | Address | [address] [place] [address] [address] | | | [place] [address] | + + + | Home Phone [...] [place] | | | | | [address] | | + + + + + Care Team Providers + +------+ + | Care Health And Safety Tech Name | Role | Phone | [...] | | | | [address] | [place], [place] | | | | | for Health and | [address] | | | | | Healing, [address] | [phone] | | | | | [place], [place] | | | | | | [address] | | | | | | [phone] | | | +--------+ + + + [...]
--- OUTSIDE RECORDS SUMMARY | ~2020-06-03 | XMS | Encounter Summary ---
Demographics + + + | Address | [address] | | | [place] [address] | + + + | Home Phone [...] Providers + +------+ + | Care Residence Counselor Name | Role | Phone | [...] 2016 | | CARDIOLOGY [address] | CORPORATE ADMINISTRATIVE ASSISTANT [address] [place] | | | | | [place], | [place], [place] | | | | | [place] [address] | [address] | | | | | [phone] | | | +--------+--------+ + + + [...] | | | | | | [place] [address] | | | | | | [phone] | | | | | | | | +--------+ + + + + documented as of this encounter Visit Diagnoses Not on filedocumented in this encounter"
--- OUTSIDE RECORDS SUMMARY | ~2020-06-03 | XMS | Encounter Summary ---
Demographics + + + | Address | [address] | | | [place] [address] | + + + | Home Phone [...] Team Providers + +------+ + | Care Enrollment Processor Name | Role | Phone | [...] + + | 06/24/ | Telephone | [facility] | Daljit Singletary, | Lab Order | | 2018 | | CARDIOLOGY [address] | [address] [place] | | | | | [place], | [place], | | | | | [place] [address] | [place] [address] | | | | | [phone] | [phone] | | | | | | | [...] at 15:54 elephone Encounter - Rachel Carrasquillo Training Development Specialist - 06/24/2018 3:42 PM PDTPatient is needing a fasting L ipid panel drawn. Voicemail not yet set up. Electronically signed by Rachel Carrasquillo Training Development Specialist at 01/2018 3:42 PM PDTdocumented in this [...] | | | | | | [place], | | | | | | [place] [address] | | | | | | [phone] | | | | | | | [...] 06/24/2018, Expires: | | | | | seneca-c[place] coronary | 06/24/2019 | | | | | artery of seneca-c[place]uga | | | | | | heart without angina | | | | | | pectoris | | | | | | Hyperlipidemia, | | | | | | mixed | | + +------+--------+ + + documented as of this encounter Visit Diagnoses + + | Diagnosis | + + | Coronary artery disease involving seneca-cayuga coronary artery of seneca-cayuga heart without | | angina pectoris - Primary | + + | Hyperlipidemia, mixed Mixed hyperlipidemia | + + documented in this encounter"
--- OUTSIDE RECORDS SUMMARY | ~2020-06-03 | XMS | Encounter Summary ---
Demographics + + + | Address | [address] | | | [place] [address] | + + + | Home Phone [...] + +------+ + | Care Community Relations Liaison Name | Role | Phone | [...] 2019 | | GASTROENTEROLOGY | [address], [place] | | | | | [address] [place] | [address] [place], [place] | | | | | [address] [place], [place] | [address] | | | | | [address] | | | | | | [phone] | | | +--------+ + + + [...] this phone call to Dr. 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 Bowen office to call him back.Electronically si gned by Kailyn Gutierrez CMA at 10/06/2019 8:22 AM PSTTelephone Encounter - Kailyn Gutierrez CMA - 10/04/2019 4:35 PM PSTPatient has seen Bridgette Rios MD at [facility] on 09/28/2019, and h as a phone call into her office as well.Electronically signed by Kailyn Gutierrez CMA at 09/22 4:36 PM PSTTelephone Encounter - Amada Starr - 10/04/2019 9:03 AM Amilcar Krishnamurthy, would like a return call from clinical staff for triage. Patient states that he is doing worse than ever. Will route to clinical staff, please advise. Phone number: [phone] signed by Amada Starr at 10/04/2019 9:17 [...] | | | | | | [place] [address] | | | | | | [phone] | | | | | | | | +--------+ + + + + documented as of this encounter Visit Diagnoses Not on filedocumented in this encounter"
--- OUTSIDE RECORDS SUMMARY | ~2020-06-03 | XMS | Encounter Summary ---
Demographics + + + | Address | [address] | | | [place] [address] | + + + | Home Phone [...] Team Providers + +------+ + | Care Shrimper Name | Role | Phone | + [...] + + | 12/14/ | Telephone | [facility] | Emmanuel Daniel MD | Follow-up, Office | | 2019 | | GASTROENTEROLOGY | [address] [facility] | Visit (wants to | | | | [address] [facility] | [address] [place], [place] | cancel his office | | | | [address] [place], [place] | [address] | appointment today) | | | | [address] | | | | | | [phone] | | | +--------+ + + + [...] encounter Miscellaneous Notes Telephone Encounter - MattKailyn, UNIT CONTROL WORKER - 12/14/2018 12:00 PM PSTPatient calls in, [...] horrible, he states he has been to [place] , [place], and they are all bad, [...] | | | | | | [place] [address] | | | | | | [phone] | | | | | | | | +--------+ + + + + documented as of this encounter Visit Diagnoses Not on filedocumented in this encounter"
--- OUTSIDE RECORDS SUMMARY | ~2020-06-03 | XMS | Encounter Summary ---
Demographics + + + | Address | [address] | | | [place] [address] | + + + | Home Phone [...] | | | | [place] | | [address] Phone: | | | | | CYSTO/URETER | | [phone] | | | | | O | | Fax: | | | | | W/LITHOTRIPS | | [phone] | | | | | Y &INDWELL [...] + + | 04/13/ | Hospital | [facility] | Matthew Uriarte | Preoperative | | 2019 | Encounter | MED CTR OR INTRA OP | Dahl, MD [address] | clearance (Primary | | | | [address] | [address] [place], [place] | Dx); Left ureteral | | | | [place], [place] | [address] | calculus; Kidney | | | | [address] | | stones | | | | [phone] | | | +--------+ + + + [...] Care Everywhere.Kidney Stones, Treating: Ureteroscopic Stone Removal (Central African)Stents, Ureteral (Central African)documented in this encounter Medications at [...] + + +---------+ + + | [place]-3 Fatty | CAPS, one capsule by | [...] | | | | | | | tyonek coronary | | | | | | | artery of tyonek | | | | | | | [...] signed by: Matthew Uriarte MD, 04/13/2019 8:09 [facility] Jaron Galaviz MD - 04/07/2019 9:45 AM [...] CV LHC; Surgeon: Daljit Singletary MD; Location: [facility] CV LAB CARDIAC CATHERIZATION N/A 01/25/2019 Procedure: CV Cor Angio; Surgeon: Daljit Singletary MD; Location: [facility] CV LAB COLONOSCOPY N/A 12/24/2017 Procedure: COLONOSCOPY; Surgeon: Emmanuel Daniel MD; Location: [facility] MEDICAL PROCEDURE UNIT COLONOSCOPY N/A 01/05/2019 Procedure: COLONOSCOPY; Surgeon: Emmanuel Daniel MD; Location: [facility] MEDICAL PROCEDURE UNIT EGD 12/24/2017 [...] Procedure: EGD; Surgeon: Emmanuel Daniel MD; Location: [facility] MEDICAL PROCEDURE UNIT UPPER GASTROINTESTINAL ENDOSCOPY N/A 01/05/2019 Procedure: EGD; Surgeon: Emmanuel Daniel MD; Location: [facility] MEDICAL PROCEDURE UNIT VASECTOMY Family History: [...] EVERY DAY, Disp: 90 tablet, Rfl: 3 [facility] Natural Products (OSTEO BI-FLEX/5-LOXIN ADVANCED PO), Take [...] 911, Disp: 100 ta blet, Rfl: 3 [place]-3 Fatty Acids (SALMON OIL-1000 PO), CAPS, one capsule by mouth daily twice daily , Disp: , Rfl: ondansetron (ZOFRAN ODT) 4 mg disintegrating tablet, Take 4 mg by mouth., Disp: , Rfl: ONE TOUCH DELICA LANCETS [facility], Check glucose as needed for hypoglycemia, Disp: [...] have not thoroughly proofread this note, and appellate court clerk errors are very likely to occur. CC: Kirk French MD documented in this encounter Miscellaneous Notes Op Note - Matthew Uriarte MD - 04/13/2019 1:03 PM PDTOperative Note Pt. Name/Age/: Moe Sanchez 59 y.o. 1960 Med. Record Number: [id number] Date of admission: 04/13/2019 Date of Operation/Procedure: 04/13/2019 Preoperative Diagnosis: Kidney stone Postoperative Diagnosis: same Surgeon: Matthew Uriarte MD Race Board Attendant(s): none Anesthesia Provider(s): Anesthesiologist: Jay Benjamin [...] leave strings on the stent. A 6 Green[place] variable length stent was then placed over [...] Electronically Signed by: Matthew Uriarte, 04/13/2019 13:04 [facility] documented in this encounter Plan of Treatment [...] [address] | | | | | | [place], | | | | | | [place] [address] | | | | | | [phone] | | | | | | | [...] [facility] | | | | | | at:[phone]. | | | | + + + [...] [address], | REFERENCE LAB | | [place], [place] [address] Bench Repair Technician: Yeny Rios MD, Phone: | ARSH CASTANON | | [phone] | | + + + + + + + + | Performing | Address | City/State/Zipcode | Phone Number | | Organization | | | | + + + + + | REFERENCE LAB | [address] | [place], [place] | [phone] | | [facility] | [facility] | [address] | | + + + + + [...] [address] | [place] | [phone] | | [facility] | | [address] | | | - LABORATORY | | [...] [address] | [place] | [phone] | | [facility] | | [address] | | | - LABORATORY | | [...] [address] | [place] | [phone] | | [facility] | | [address] | | | - LABORATORY | | [...] + | [facility] | [address] | [place] | [phone] | | [facility] | | [address] | | | - LABORATORY | | [...] mL/min/1.73m2 | [facility] | | | MALTESE | RATE,ESTIMATED | | MEDICAL | | | | mL/min/1.14w7Mcwu than | | CENTER - | | [...] [address] | [place] | [phone] | | [facility] | | [address] | | | - LABORATORY | | [...] ONCE PRN, Wheezing, | | | Starting [facility] 04/13/19 at 0917, | | | [...] | | | | | | | puoifb-fik-kgbgb use of at least | | | [...] | | | | PRN, Nausea, Starting [facility] 04/13/19 | | AM PDT | [...]
--- OUTSIDE RECORDS SUMMARY | ~2020-06-03 | XMS | Encounter Summary ---
Demographics + + + | Address | [address] | | | [place] [address] | + + + | Home Phone [...] Team Providers + +------+ + | Care Visor Installer Name | Role | Phone | [...] 2018 | | GASTROENTEROLOGY | [address], [place] | (egd,colon) | | | | [address] [place] | [address] [place], [place] | | | | | [address] [place], [place] | [address] | | | | | [address] | | | | | | [phone] | | | +--------+ + + + [...] out he will buy his ticket to [employer]. Recall for colonoscopy entered for 5 years [...] | | | | | | [place] [address] | | | | | | [phone] | | | | | | | | +--------+ + + + + documented as of this encounter Visit Diagnoses Not on filedocumented in this encounter"
--- OUTSIDE RECORDS SUMMARY | ~2020-06-03 | XMS | Encounter Summary ---
Demographics + + + | Address | [address] | | | [place] [address] | + + + | Home Phone [...] Providers + +------+ + | Care Top Former Name | Role | Phone | [...] + + | 01/22/ | Refill | [facility] | Kirk French | Medication Refill | | 2019 | | [facility] | MD [address] | | | | | [facility] [address] | | | | | [address] | [place] [address] | | | | | [place], [place] | [phone] | | | | | [address] | | | | | | [phone] | | | +--------+--------+ + + + [...] Miscellaneous Notes Telephone Encounter - Geri Bear Bioprocess Development Engineer - 01/23/2020 12:40 PM PSTRefill Shanell ctronically signed by Geri Bear Bioprocess Development Engineer at 01/23/2020 12:40 PM PSTdocumented in this [...] | | | | | | [place] [address] | | | | | | [phone] | | | | | | | | +--------+ + + + + documented as of this encounter Visit Diagnoses Not on filedocumented in this encounter"
--- OUTSIDE RECORDS SUMMARY | ~2020-06-03 | XMS | Encounter Summary ---
Demographics + + + | Address | [address] | | | [place] [address] | + + + | Home Phone [...] Providers + +------+ + | Care Family Resource Specialist Name | Role | Phone | + +------+ + | Michael Amanda DO | PCP | | + +------+ + Reason for Visit + + + | Reason | Comments | + + + | Follow-up | One month with [facility] 12/25/13 | + + + | Chest Pain | | + + + Encounter Details +--------+---------+ + + + | Date | Type | Department | Care Team | Description | +--------+---------+ + + + | 01/29/ | Office | [facility] | Mol[place], | Other chest pain | | 2013 | Visit | CARDIOLOGY [address] | [place] | (Primary Dx); Chest | | | | [place], | [place], | pain; Coronary | | | | [place] [address] | [place] [address] | artery disease; | | | | [phone] | [phone] | Hyperlipidemia; | | | | | [...] last week to the emergency room at [facility] with a baljit [address] pain episode. [...] needed for Chest pain. 25 tablet 12 [place]-3 Fatty Acids (SALMON OIL-1000 PO) CAPS, one [...] completely be ruled out. D. [facility] 12/25/13, shows noncritical coronary artery disease, mild ecstatic change to the le ft main artery, the coronary circulation is right dominant, normal left ventricular size, wa ll thickness and motion, preserved left ventricular systolic function, LVEF is 75%, normal s ystemic blood pressure, successful TR band application to the right radial artery. E. patient was seen on the emergency room at [place] on 01/26/2014, he was ruled out A [...] pain. He is in class II of [place] [employer] functional class. There are no [...] to go back in 3 days to [place] for an attempt of ablation under general [...] symptoms. He is in class II of [place] [employer] functional class. There are no [...] made to ensure accuracy; however, inadvertent computerized inspector water pollution control errors may be pre sent. Electronically signed [...] | | | | | | [place] [address] | | | | | | [phone] | | | | | | | [...] of unspecified type of vessel, | | koi or graft | + + | Hyperlipidemia Other and unspecified hyperlipidemia | + + | Symptomatic PVCs Other premature beats | + + | Hypertension Unspecified essential hypertension | + + documented in this encounter
--- OUTSIDE RECORDS SUMMARY | ~2020-06-03 | XMS | Encounter Summary ---
Demographics + + + | Address | [address] | | | [place] [address] | + + + | Home Phone [...] Providers + +------+ + | Care Internal Revenue Agent Name | Role | Phone | [...] + + | 12/19/ | Telephone | [facility] | Kirk French | Triage (chronic IBS) | | 2020 | | [facility] | MD Brea [address] | | | | | [facility] [facility] [address] | [address] | | | | | [address] | [place] [address] | | | | | [place], [place] | [phone] | | | | | [address] | | | | | | [phone] | | | +--------+ + + + [...] he has been in and out of [facility] for his chronic IBS. He states h e has been having rectal bleeding. He has a new GI at [facility] and is scheduled for further stud ies next week. He states the case aide at [facility] advised him to contact PCP. Abdoul nt [...] mario watson Please call patient back at [phone]. If this is a symptom based call, was patient offered triage? Not Applicable If this is a symptom based call and you were unable to immediately transfer the call to a lorraine bellamy senior hardware design engineer was caller made aware that if at [...] | | | | | | [place] [address] | | | | | | [phone] | | | | | | | | +--------+ + + + + documented as of this encounter Visit Diagnoses Not on filedocumented in this encounter"
--- OUTSIDE RECORDS SUMMARY | ~2020-06-03 | XMS | Encounter Summary ---
Demographics + + + | Address | [address] | | | [place] [address] | + + + | Home Phone [...] Providers + +------+ + | Care Cartoon Artist Name | Role | Phone | [...] [address] | | | | | [place], | [place], | | | | | [place] [address] | [place] [address] | | | | | [phone] | [phone] | | | | | | | [...] on 07/31/19 at 15:24 elephone Julia Caceres Care Coordination Manager - 07/31/2019 1:37 PM PDTPatient scheduled for an nayan ointment on 08/01/2019 and is needing a fasting Lipid panel. Please order, thank you. Spoke to patient, he states that he will come in the morning to have his fasting labs done before his appointment. Electronically signed by Julia Allen Care Coordination Manager at 07/2019 1:40 PM PDTdocumented in this [...] W | | | | | | [place], | | | | | | [place] [address] | | | | | | [phone] | | | | | | | [...]
--- OUTSIDE RECORDS SUMMARY | ~2020-06-03 | XMS | Encounter Summary ---
Demographics + + + | Address | [address] | | | [place] [address] | + + + | Home Phone [...] Team Providers + +------+ + | Care Developmental Behavioral Physician Name | Role | Phone | + +------+ + PCP | Unavailable | + +------+ + Encounter Details +--------+ + + + + | Date | Type | Department | Care Team | Description | +--------+ + + + + | 11/05/ | [facility] | [facility] | Naresh Mckeon | | | 2009 | Encounter | MED CTR SLEEP | MD Chaya [address] | | | | | CENTER [address] | [address] | | | | | [place] | [place] [address] | | | | | [address] | [phone] | | | | | [phone] | | | +--------+ + + + [...] | | | | | | [place] [address] | | | | | | [phone] | | | | | | | | +--------+ + + + + documented as of this encounter Visit Diagnoses Not on filedocumented in this encounter"
--- OUTSIDE RECORDS SUMMARY | ~2020-06-03 | XMS | Encounter Summary ---
Demographics + + + | Address | [address] | | | [place] [address] | + + + | Home Phone [...] Team Providers + +------+ + | Care Receiver Setter Name | Role | Phone | + +------+ + | Kirk French MD | PCP | | + +------+ + Encounter Details +--------+ + + + + | Date | Type | Department | Care Team | Description | +--------+ + + + + | 12/24/ | Anesthesia | [facility] | Jarett Barakat | | | 2018 | Event | MED CTR MP INTRA OP | P, MD [address] | | | | | [address] | [address] [place], [place] | | | | | [place], [place] | [address] | | | | | [address] | [phone] | | | | | [phone] | | | | | | | Arthur Wesley MD | | | | | | [address] | | | | | | [place], [place] | | | | | | [address] | | | | | | | [...] 12/24/17 1435 by | | eral | jxoc-ldr-[id number] catheter system; | Desmond Teresa RN | [...] EVALUATION Moe Sanchez 57 y.o. male 1960 [id number] Procedure(s) EGD (N/A Mouth) COLONOSCOPY (N/A Rectum) [...] signed by Jarett Barakat MD 12/24/2017 14:08 [facility] nesthesia Preprocedure Evaluation - Jarett Barakat MD - 2017 12:26 PM PST ANESTHESIA PREANESTHESIA EVALUATION Moe Sanchez 57 y.o. male 1960 [id number] Procedure(s): EGD (N/A Mouth) COLONOSCOPY (N/A Rectum) [...] Preventative health care Coronary artery disease involving creek coronary artery of creek heart without angina pectoris Cannabis abuse, [...] | | | | | | [place], | | | | | | [place] [address] | | | | | | [phone] | | | | | | | [...]
--- OUTSIDE RECORDS SUMMARY | ~2020-06-03 | XMS | Encounter Summary ---
Demographics + + + | Address | [address] | | | [place] [address] | + + + | Home Phone [...] + +------+ + | Care Slicing Machine Operator/Tender Name | Role | Phone | + +------+ + PCP | Unavailable | + +------+ + Encounter Details +--------+ + + + + | Date | Type | Department | Care Team | Description | +--------+ + + + + | 09/12/ | Hospital | [facility] | | | | 1993 | Encounter | MED CTR EMERGENCY | | | | | | [address] | | | | | | [place] | | | | | | [address] | | | | | | [phone] | | | +--------+ + + + [...] | | | | | | [place] [address] | | | | | | [phone] | | | | | | | | +--------+ + + + + documented as of this encounter Visit Diagnoses Not on filedocumented in this encounter"
--- OUTSIDE RECORDS SUMMARY | ~2020-06-03 | XMS | Encounter Summary ---
Demographics + + + | Address | [address] | | | [place] [address] | + + + | Home Phone [...] Providers + +------+ + | Care News Operations Manager Name | Role | Phone | + +------+ + PCP | Unavailable | + +------+ + Encounter Details +--------+ + + + + | Date | Type | Department | Care Team | Description | +--------+ + + + + | 05/24/ | Hospital | [facility] | Chi Fang | Unspecified Chest | | 2008 - | Encounter | MEDICAL CENTER | MD Kelsey [address] | Pain | | | | CLINICAL DECISION | [place] | | | 05/25/ | | [address] | [address] | | | 2008 | | [place], [place] | [phone] | | | | | [address] | | | | | | [phone] | | | +--------+ + + + [...] | | | | | | [place], | | | | | | [place] [address] | | | | | | [phone] | | | | | | | [...] Performed At | + + + | [id number] | | | Page 1 RADIOLOGY | | | [facility] [address]/ | | | [facility] | | | CENTER NAME: [place] [address] | | | | | | | | | DATE OF : 1960 ORDER NUMBER: | | | [id number] EXAM DATE/TIME: 05/25/2009 08:00 A ORDERING PHYSICIAN: | | | CHI FANG ORDER DETAIL: [id number] / / [facility] EXAM | | | DESCRIPTION: NM MYOCARDIAL [...] | | administration of 14.9 mCi of cwqntuwbtp-44s-hreqawe Myoview. Stress | | | images postinjection [...] | | | images. Prone images demonstrate moravian of the inferior wall | | | [...] | | A P | | | [id number]/[id number]/ cc: MD FEMI FOSS, | | | MD AMY SULLIVAN DO | | + + + + + | Procedure Note | + + | Kalpesh Brown Conversion - 07/17/2019 2:13 AM PDT | | [id number] Page 1 | | RADIOLOGY CDU 35522/ | | OPO | | [facility] NAME: [address] | | [place] [address] | | | | DATE OF : 1960 | | | | ORDER NUMBER: [id number] | | EXAM DATE/TIME: 05/25/2009 08:00 A [...] administration of 14.9 mCi | | of yhhvhblvny-77s-vdozxdu Myoview. Stress images postinjection of 47.7 | [...] | | | | Prone images demonstrate moravian of the inferior wall nicely. | | [...] | A | | P | | TSG/dc/[id number]/ | | cc: ANGELA MARADIAGA MD | | FEMI MARIE MD | | CHI FANG MD | | AMY BANEGAS DO | + + ECHO Complete (05/25/2009 7:50 AM PDT) + + | Specimen | + + | | + + + + + | Narrative | Performed At | + + + | [id number] | | | Page 1 ECHO [facility] NAME: | | | [place] [address] MEDICAL RECORD #: | | | [id number] | | | DATE OF : 1960 ORDER | | | NUMBER: [id number] EXAM DATE/TIME: 05/25/2009 07:34 PERFORMING | | [...] Excursion: | | | 1.89 cm E-F [place]: 0.08 m/s HR: 43.51 BPM AV maxP.11 [...] | | | 0.33 m/s TV Dec [place]: 1.73 m/s2 TV Dec Time: 344.24 ms TV | | | E Bravo: 0.59 m/s TV E/A Ratio: 1.80 TV maxP.40 mmHg TV | | | meanP.44 mmHg TV Vmax: 0.59 m/s TV Vmean: 0.30 m/s TV | | | VTI: 22.88 cm Millwright Helper: ANTHONY Authenticated by: Edwardo Tee | | | Carlos WINKLER Report Date/Time: 05-25-2009 10:19:52 | | + + + + + | Procedure Note | + + | Kalpesh Brown - 07/17/2019 2:13 AM PDT [id number] | | [facility] [place] | | [address] : ACCOUNT #: | | [id number]: DATE OF : 1960ORDER NUMBER: | | [id number] DATE/TIME: 05/25/2009 07:34PERFORMING PHYSICIAN: Edwardo Gonzalez | [...] mlLAESV Index (A-L): 26.03 ml/m2LAAs A2C: 14.93 th6AIRKM A-L | | A2C: 44.50 mlLALs A2C: 4.25 cmLAAs A4C: 18.42 hs1HRERD A-L A4C: 55.79 mlLALs | | A4C: 5.16 cmAo Diam: 3.91 cmAV Cusp: 2.23 cmLA Diam: 3.79 cmLA/Ao: 0.96%FS: | | 43.37 %EDV(Teich): 146.19 mlEF(Teich): 73.99 %ESV(Teich): 38.01 mlIVSd: 1.57 | | cmIVSs: 1.79 cmLVIDd: 5.48 cmLVIDs: 3.10 cmLVPWd: 1.32 cmLVPWs: 1.79 | | cmSV(Teich): 108.18 mlD-E Excursion: 1.89 cmE-F [place]redell: 0.08 m/sHR: 43.51 BPMAV | | maxP.11 mmHgAV meanP.33 mmHgAV Vmax: 1.74 m/Zabrina Vmean: 1.06 m/Zabrina VTI: | | 35.51 cmAVA Vmax: 2.77 cm2AVA (VTI): 2.54 md7TDWT Dopp: 3.00 l/mnct1TTUA Dopp: | | 6.33 l/minHR: 70.25 BPMLVOT maxP.78 mmHgLVOT meanP.02 mmHgLVSI Dopp: | | 42.76 ml/m2LVSV Dopp: 90.23 mlLVOT Vmax: 1.30 m/sLVOT Vmean: 0.80 m/sLVOT VTI: | | 24.35 cmMV A Bravo: 0.70 m/sMV DecT: 242.46 msMV E Bravo: 0.91 m/sMV E/A Ratio: | | 1.31MV maxP.40 mmHgMV meanP.82 mmHgMV Vmax: 0.92 m/sMV Vmean: 0.37 m/sMV | | VTI: 26.47 cmMVA (VTI): 3.40 ny6Ghnuxm e': 0.08 m/sSeptal E/e': 11.24HR: | | 60.55 BPMPV maxP.04 mmHgPV meanP.39 mmHgPV Vmax: 0.87 m/sPV Vmean: 0.55 | | m/sPV VTI: 19.09 cmRAP: 5 mmHgRVSP: 21.72 mmHgTR maxP.72 mmHgTR Vmax: | | 2.04 m/sTV A Bravo: 0.33 m/sTV Dec [place]: 1.73 m/s2TV Dec Time: 344.24 msTV E Bravo: | | 0.59 m/sTV E/A Ratio: 1.80TV maxP.40 mmHgTV meanP.44 mmHgTV Vmax: 0.59 | | m/sTV Vmean: 0.30 m/sTV VTI: 22.88 cm Millwright Helper: EMERYuthenticated by: Edwardo Tee | | [...] | |D-E Excursion: 1.89 cm | |E-F [place]redell: 0.08 m/s | |HR: 43.51 BPM | [...] A Bravo: 0.33 m/s | |TV Dec [place]: 1.73 m/s2 | |TV Dec Time: 344.24 ms | |TV E Bravo: 0.59 m/s | |TV E/A Ratio: 1.80 | |TV maxP.40 mmHg | |TV meanP.44 mmHg | |TV Vmax: 0.59 m/s | |TV Vmean: 0.30 m/s | |TV VTI: 22.88 cm | | | |Millwright Helper: KVW | |Authenticated by: Edwardo Gonzalez MD | |Report Date/Time: 05-25-2009 10:19:52 | + + CT Head wo Contrast (05/24/2009 12:58 PM PDT) + + | Specimen | + + | | + + + + + | Narrative | Performed At | + + + | [id number] | | | Page 1 RADIOLOGY | | | CDU 87296/ | | | OPO [facility] | | | CENTER NAME: [place] [address] | | | | | | | | | DATE OF : 1960 ORDER NUMBER: | | | [id number] EXAM DATE/TIME: 05/24/2009 12:47 P ORDERING PHYSICIAN: [...] | | asymmetrically dense vessel about the makah of Pearson. No | | | hydrocephalus. [...] 08:45 P P P | | | [facility]/tp/[id number]/ cc: MD ANGELA AVENDAÑO MD | | | MD AMY HAM, DO | | + + + + + | Procedure Note | + + | Kalpesh Brown Conversion - 07/17/2019 2:13 AM PDT | | [id number] Page 1 | | RADIOLOGY CDU 91313/ | | OPO | | [facility] NAME: [address] | | [place] [address] | | | | DATE OF : 1960 | | | | ORDER NUMBER: [id number] | | EXAM DATE/TIME: 05/24/2009 12:47 P [...] is no asymmetrically dense vessel about the makah of Pearson. No | | hydrocephalus. Some [...] | P | | P | | TSG/tp/[id number]/ | | cc: VINAY HILL MD | | ANGELA MARADIAGA MD | | FEMI MARIE MD | | AMY BANEGAS DO | + + XR Chest 2 Vws (05/24/2009 11:31 AM PDT) + + | Specimen | + + | | + + + + + | Narrative | Performed At | + + + | [id number] | | | Page 1 RADIOLOGY | | | [facility] [address]/ | | | OPO [facility] | | | CENTER NAME: [place] [address] | | | | | | | | | DATE OF : 1960 ORDER NUMBER: | | | [id number] EXAM DATE/TIME: 05/24/2009 11:19 A ORDERING PHYSICIAN: [...] DT: | | | 05/24/2009 05:38 P [id number]/cf/[id number]/ cc: VINAY HILL MD | | | MD FEMI FOSS MD JOSEPH | | | P SOLDO, DO | | + + + + + | Procedure Note | + + | Kalpesh Brown Conversion - 07/17/2019 2:13 AM PDT | | [id number] Page 1 | | RADIOLOGY CDU 89661/ | | OPO | | [facility] NAME: [address] | | [place] [address] | | | | DATE OF : 1960 | | | | ORDER NUMBER: [id number] | | EXAM DATE/TIME: 05/24/2009 11:19 A [...] | P | | P | | [facility]//[id number]/ | | cc: VINAY HILL MD | | ANGELA MARADIAGA MD | | FEMI MARIE MD | | AMY BANEGAS DO | + + documented in this encounter Visit Diagnoses + + | Diagnosis | + + | Chest pain, unspecified | + + documented in this encounter"
--- OUTSIDE RECORDS SUMMARY | ~2020-06-03 | XMS | Encounter Summary ---
Demographics + + + | Address | [address] | | | [place] [address] | + + + | Home Phone [...] Providers + +------+ + | Care Electrical Sign Servicer Name | Role | Phone | [...] + + | 08/30/ | Refill | [facility] | Kirk French | Medication Refill | | 2019 | | [facility] | MD Bre[address] | | | | | PRIMARY CARE [address] | [address] | | | | | [address] | [place] [address] | | | | | [place], [place] | [phone] | | | | | [address] | | | | | | [phone] | | | +--------+--------+ + + + [...] Miscellaneous Notes Telephone Encounter - Geri Bear Senior Front End Web Developer - 08/30/2019 12:37 PM PDTrefillElec tronically signed by Geri Bear Senior Front End Web Developer at 08/30/2019 12:37 PM PDTdocujean pierre villarreal [...] | | | | | | [place] [address] | | | | | | [phone] | | | | | | | | +--------+ + + + + documented as of this encounter Visit Diagnoses Not on filedocumented in this encounter"
--- OUTSIDE RECORDS SUMMARY | ~2020-06-03 | XMS | Encounter Summary ---
Demographics + + + | Address | [address] | | | [place] [address] | + + + | Home Phone [...] Providers + +------+ + | Care Side Laster Tack Name | Role | Phone | + [...] | | | | CENTER [address] | [address] [place] | | | | | [place], [place] | [place] [address] | | | | | [address] | [phone] | | | | | [phone] | | | +--------+ + + + [...] sent through Care Everywhere.Diarrhea, Unkno wn Cause (Yoruba)documented in this encounter Medications at Time of [...] | | | | | | | buckland coronary | | | | | | | artery of buckland | | | | | | | [...] might be differ ent from the original. [facility] Emergency Department Encounter Note [address] [place] [address] PCP:Kirk French MD [phone] History ED Triage [...] wasn't treated. 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; 24/7 Cardtronic Peptic ulcer disease Premature ventricular contraction Preventative [...] LHC; Surgeon: Daljit Singletary MD; Location: [facility] CV LAB CARDIAC CATHERIZATION N/A 01/25/2019 Procedure: CV Cor Angio; Surgeon: Daljit Singletary MD; Location: [facility] CV LAB COLONOSCOPY N/A 12/24/2017 Procedure: COLONOSCOPY; Surgeon: Emmanuel Daniel MD; Location: [facility] MEDICAL PROCEDURE UNIT COLONOSCOPY N/A 01/05/2019 Procedure: COLONOSCOPY; Surgeon: Emmanuel Daniel MD; Location: [facility] MEDICAL PROCEDURE UNIT EGD 12/24/2017 [...] [facility] MEDICAL PROCEDURE UNIT UPPER GASTROINTESTINAL ENDOSCOPY N/A 01/05/2019 Procedure: EGD; Surgeon: Emmanuel Daniel MD; Location: [facility] MEDICAL PROCEDURE UNIT URETEROSCOPY Left 04/13/2019 Procedure: Cystoscopy, Left ureteroscopy with laser lithotripsy, Left ureteral stent place ment; Surgeon: Matthew Uriarte MD; Location: [facility] MAIN OR VASECTOMY 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 ONE TOUCH DELICA LANCETS [facility] Check glucose as needed for hypoglycemia oxyCODONE-acetaminophen [...] | | | | | | [place] [address] | | | | | | [phone] | | | | | | | [...] W?MRN: | | | | | | [id number] | | | [id number] | | | riteri | | | [...] | | St. | | | [place] | | | y | | | [...] | | St. | | | [place] | | | y | | | [...] | | St. | | | [place] | | | y H. | | [...] | | St. | | | [place] | | | y H. | | [...] | | | M.D. | | | Lead Refinery Supervisor | | | al | | [...] | | | ent/60 | | | [id number] | | | [phone]- | | | [...] [address] | [place] | [phone] | | [facility] | | [address] | | | - LABORATORY | | [...] [address] | [place] | [phone] | | [facility] | | [address] | | | - LABORATORY | | [...] + | [facility] | [address] | [place] | [phone] | | [facility] | | [address] | | | - LABORATORY | | [...] | | Sensitive | | | [facility] [...] [address] | [place] | [phone] | | [facility] | | [address] | | | - LABORATORY | | [...] [address] | [place] | [phone] | | [facility] | | [address] | | | - LABORATORY | | [...] | 0.96 | 0.70 - 1.30 | [facility] | | | | | mg/dL | [facility] | | | | | | MEDICAL | | | | | | CENTER - | | | | | | LABORATORY | | + + + + + + | eGFR if not | >60Comment: GLOMERULAR | >=60 | [facility] | | | | FILTRATION | mL/min/1.73m2 | [facility] | | | TUNISIAN | RATE,ESTIMATED | | MEDICAL | | | | mL/min/1.48p0Kpub than | | CENTER - | | [...] + | [facility] | [address] | [place] | [phone] | | [facility] | | [address] | | | - LABORATORY | | [...] [address] | [place] | [phone] | | [facility] | | [address] | | | - LABORATORY | | [...] - 1.030 | [facility] | | | [place], | | | [facility] | [...] | [address] | [place] | [phone] | | [facility] | | [address] | | | - LABORATORY | | [...]
--- OUTSIDE RECORDS SUMMARY | ~2020-06-03 | XMS | Encounter Summary ---
Demographics + + + | Address | [address] | | | [place] [address] | + + + | Home Phone [...] Providers + +------+ + | Care Founder And President Name | Role | Phone | [...] | (Fax) | | | | | [address] | | | | | | [phone] | | | +--------+ + + + [...] | | | | | | [place] [address] | | | | | | [phone] | | | | | | | | +--------+ + + + + documented as of this encounter Visit Diagnoses Not on filedocumented in this encounter"
--- OUTSIDE RECORDS SUMMARY | ~2020-06-03 | XMS | Encounter Summary ---
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 The patient had this done in [place], but he does not want to return there as he has no place to stay locally and would prefer to do a consul tation in [place]. Can you please let patient know that [...] | | | | | | [place] [address] | | | | | | [phone] | | | | | | | | +--------+ + + + + documented as of this encounter Visit Diagnoses Not on filedocumented in this encounter"
--- OUTSIDE RECORDS SUMMARY | ~2020-06-03 | XMS | Encounter Summary ---
Demographics + + + | Address | [address] | | | [place] [address] | + + + | Home Phone [...] Providers + +------+ + | Care Bi Manager Name | Role | Phone | [...] [address] | | | | [place], | [place], | | | | | [place] [address] | [place] [address] | | | | | [phone] | [phone] | | | | | | | [...] | | | | | | [place] [address] | | | | | | [phone] | | | | | | | [...] + | [address] | [address] | [place] | [phone] | | [facility] | | [id number] | | | - [...]
--- OUTSIDE RECORDS SUMMARY | ~2020-06-03 | XMS | Encounter Summary ---
Demographics + + + | Address | [address] | | | [place] [address] | + + + | Home Phone [...] Providers + +------+ + | Care Tool Room Machinist Name | Role | Phone | + +------+ + | Kirk French MD | PCP | | + +------+ + Encounter Details +--------+ + + + + | Date | Type | Department | Care Team | Description | +--------+ + + + + | 10/25/ | Hospital | [facility] | Kirk French | Chronic pain | | 2017 | Encounter | MED CTR ULTRASOUND | MD Eva Guidry | disorder; Stomach | | | | [address] [place] | [address] | ache; Obesity, | | | | [place], [place] | [place] [address] | unspecified | | | | [address] | [phone] | classification, | | | | [phone] | | unspecified obesity | | | [...] + + + +---------+ + + | [place]-3 Fatty | CAPS, one capsule by [...] | | | | | | [place] [address] | | | | | | [phone] | | | | | | | [...]
--- OUTSIDE RECORDS SUMMARY | ~2020-06-03 | XMS | Encounter Summary ---
Demographics + + + | Address | [address] | | | [place] [address] | + + + | Home Phone [...] Team Providers + +------+ + | Care Lumpia Wrapper Maker Name | Role | Phone | + +------+ + PCP | Unavailable | + +------+ + Encounter Details +--------+ + + + + | Date | Type | Department | Care Team | Description | +--------+ + + + + | 06/17/ | Hospital | [facility] | | | | 2008 | Encounter | MED CTR EMERGENCY | | | | | | [address] | | | | | | [place] | | | | | | [address] | | | | | | [phone] | | | +--------+ + + + [...] | | | | | | [place] [address] | | | | | | [phone] | | | | | | | | +--------+ + + + + documented as of this encounter Visit Diagnoses Not on filedocumented in this encounter"
--- OUTSIDE RECORDS SUMMARY | ~2020-06-03 | XMS | Encounter Summary ---
Demographics + + + | Address | [address] | | | [place] [address] | + + + | Home Phone [...] Providers + +------+ + | Care Black Pickler Name | Role | Phone | + +------+ + | Michael Amanda DO | PCP | | + +------+ + Encounter Details +--------+ + + + + | Date | Type | Department | Care Team | Description | +--------+ + + + + | 09/22/ | Hospital | [facility] | Bahman Gant MD | | | 2012 | Encounter | MED CTR XRAY [address] | [address] | | | | | [place] | [address] [place] | | | | | [place] [address] | [place] [address] | | | | | [phone] | [phone] | | | | | | | [...] + + + +---------+ + + | [place]-3 Fatty | CAPS, one capsule by | [...] | | | | | | [place] [address] | | | | | | [phone] | | | | | | | | +--------+ + + + + documented as of this encounter Visit Diagnoses Not on filedocumented in this encounter"
--- OUTSIDE RECORDS SUMMARY | ~2020-06-03 | XMS | Encounter Summary ---
Demographics + + + | Address | [address] | | | [place] [address] | + + + | Home Phone [...] Team Providers + +------+ + | Care Editorial Cartoonist Name | Role | Phone | + [...] + | 09/09/ | Office | [facility] | Michael Amanda, | Hyperlipidemia; | | 2011 | Visit | [facility]IC[facility] [place] | DO [address] | Hypertension; | | | | [address] | [place] | Chronic pain | | | | [place] | [address] | syndrome; Neck pain, | | | | [address] | | chronic | | | | [phone] | | | +--------+---------+ + + + [...] | | | | | | [place], | | | | | | [place] [address] | | | | | | [phone] | | | | | | | [...]
--- OUTSIDE RECORDS SUMMARY | ~2020-06-03 | XMS | Encounter Summary ---
Demographics + + + | Address | [address] | | | [place] [address] | + + + | Home Phone [...] Team Providers + +------+ + | Care Csr Retail Name | Role | Phone | + +------+ + PCP | Unavailable | + +------+ + Encounter Details +--------+ + + + + | Date | Type | Department | Care Team | Description | +--------+ + + + + | 11/12/ | [facility] | [facility] | | | | 1994 | Encounter | MED CTR GENERIC OP | | | | | | CONV DEPT [address] | | | | | | [place], | | | | | | [place] [address] | | | | | | [phone] | | | +--------+ + + + [...] | | | | | | [place] [address] | | | | | | [phone] | | | | | | | | +--------+ + + + + documented as of this encounter Visit Diagnoses Not on filedocumented in this encounter"
--- OUTSIDE RECORDS SUMMARY | ~2020-06-03 | XMS | Encounter Summary ---
Demographics + + + | Address | [address] | | | [place] [address] | + + + | Home Phone [...] | 06/17/ | Hospital | [facility] | | | | 2007 | Encounter | MED CTR EMERGENCY | | | | | | [address] | | | | | | [place] | | | | | | [address] | | | | | | [phone] | | | +--------+ + + + [...] | | | | | | [place] [address] | | | | | | [phone] | | | | | | | | +--------+ + + + + documented as of this encounter Visit Diagnoses Not on filedocumented in this encounter"
--- OUTSIDE RECORDS SUMMARY | ~2020-06-03 | XMS | Encounter Summary ---
Demographics + + + | Address | [address] | | | [place] [address] | + + + | Home Phone [...] Team Providers + +------+ + | Care Recooperer Name | Role | Phone | + +------+ + | Kirk French MD | PCP | | + +------+ + Encounter Details +--------+ + + + + | Date | Type | Department | Care Team | Description | +--------+ + + + + | 01/07/ | Hospital | [facility] | Conversion | | | 2017 | Encounter | [facility] | Transaction, | | | | | ULTRASOUND [address] | Provider Unknown | | | | | [address] | [phone] | | | | | [facility] [place] | | | | | | [address] | Kirk French | | | | | [phone] | MD Eva Guidry | | | | | | [address] [place], | | | | | | [place] [address] | | | | | | [phone] | | | | | | | [...] + + + +---------+ + + | [place]-3 Fatty | CAPS, one capsule by | [...] | | | | | | [place] [address] | | | | | | [phone] | | | | | | | | +--------+ + + + + documented as of this encounter Visit Diagnoses Not on filedocumented in this encounter"
--- OUTSIDE RECORDS SUMMARY | ~2020-06-03 | XMS | Encounter Summary ---
Demographics + + + | Address | [address] | | | [place] [address] | + + + | Home Phone [...] Team Providers + +------+ + | Care Charhouse Worker Name | Role | Phone | + +------+ + | Kirk French MD | PCP | | + +------+ + Encounter Details +--------+ + + + + | Date | Type | Department | Care Team | Description | +--------+ + + + + | 03/15/ | Hospital | [facility] | Conversion | | | 2016 | Encounter | [facility] | Transaction, | | | | | [address] | Provider Unknown | | | | | [address] [place] | [phone] | | | | | [address] | | | | | | [phone] | Kirk French | | | | | | MD Eva Guidry | | | | | | [address] [place], | | | | | | [place] [address] | | | | | | [phone] | | | | | | | [...] + + + +---------+ + + | [place]-3 Fatty | CAPS, one capsule by | [...] | | | | | | [place] [address] | | | | | | [phone] | | | | | | | | +--------+ + + + + documented as of this encounter Visit Diagnoses Not on filedocumented in this encounter"
--- OUTSIDE RECORDS SUMMARY | ~2020-06-03 | XMS | Encounter Summary ---
Demographics + + + | Address | [address] | | | [place] [address] | + + + | Home Phone [...] | Visit | CARDIOLOGY [address] | FILM TESTS CHECKER [address] | (Primary Dx); | | | | [place], | St [place], [place] | Symptomatic PVCs; | | | | [place] [id number] | [address] | Hypertension; | | | | [phone] | | Hyperlipidemia | +--------+---------+ + + [...] and/or ref er you to electrophysiology in [place]. 3. Return in 3 months, or sooner [...] he did not followup with electrophysiology in [place], so he has remained on diltiaze m [...] L3-4 Lumbar discectomy 1991 L3-4 Appendectomy 2005 [facility] Sinus surgery 1997 Lumbar fusion 01/2011 Pacemaker placement 06/14/09 Neck fusion 08/10/2012 [place] Ablation 04/03/13 Shoulder surgery 03/22/13 Family History Problem Relation Age of Onset Cancer Father colon,prostate Family Status Relation Status Age Mother 62 ID Father Alive Unknown health Brother Alive Sister [...] by mouth Ken y. 30 tablet 6 [place]-3 Fatty Acids (SALMON OIL-1000 PO) Active CAPS, [...] Sanchez Date: September 05, 2013 : 1960 Electromechanical Inspector: PARISA Velazquez Device Automatic Grinder Operator: The Mobile Majoritytronic Sense (mV) Impedance (?) Capture (V) Capture (ms) A Lead 4-5.6 417 1.5 0.12 RV Lead >31.36 533 2.0 0.09 LV Lead Battery Impedance (?): 452 Battery Voltage (V): 2.79 MI Interval (ms): 162 AR Interval (ms): 245 VA Conduction: Mode Switch Events: 1 % of time: <0.1 -BUSHLER: <0.1% AP-BUSHLER: 0.1% -VS: 22.7% AP-VS: 77.1% BUSHLER: Magnetic Rate: 85 LINDA: 65 LEAH: Current [...] to go back in 3 days to [place] for an attempt of ablation under [...] He is upgraded to class I of [place] [employer] functional class. There are no signs or symptoms of overt congestive heart failure. There is no fluid retention on physical examin ation. Patient continues on diltiazem and metoprolol, and at this point as he had a recurre nt episode last week will continue him on both of these medications. As [facility] episode he has had he does not [...] he would like to see electrophysiology in [place] rather than [place] as he paulino s family there, if [...] made to ensure accuracy; however, inadvertent computerized rotary furnace operator errors may be pre sent. Electronically [...] W | | | | | | [place], | | | | | | [place] [address] | | | | | | [phone] | | | | | | | [...]
--- OUTSIDE RECORDS SUMMARY | ~2020-06-03 | XMS | Encounter Summary ---
Demographics + + + | Address | [address] | | | [place] [address] | + + + | Home Phone [...] Providers + +------+ + | Care Dry Room Operator Name | Role | Phone | + +------+ + PCP | Unavailable | + +------+ + Encounter Details +--------+ + + + + | Date | Type | Department | Care Team | Description | +--------+ + + + + | 09/08/ | [facility] | [facility] | Naresh Mckeon | | | 1998 | Encounter | MED CTR SLEEP | MD Chaya [address] | | | | | CENTER [address] [place] | [place] | | | | | [place] | [place] [address] | | | | | [address] | [phone] | | | | | [phone] | | | +--------+ + + + [...] | | | | | | [place] [address] | | | | | | [phone] | | | | | | | | +--------+ + + + + documented as of this encounter Visit Diagnoses Not on filedocumented in this encounter"
--- OUTSIDE RECORDS SUMMARY | ~2020-06-03 | XMS | Encounter Summary ---
Demographics + + + | Address | [address] [place] [address] [address] | | | [place] [address] | + + + | Home Phone [...] [place] | | | | | [address] | | + + + + + Care Team Providers + +------+ + | Care Senior Living Advisor Name | Role | Phone | [...]
--- OUTSIDE RECORDS SUMMARY | ~2020-06-03 | XMS | Encounter Summary ---
Demographics + + + | Address | [address] | | | [place] [address] | + + + | Home Phone [...] Providers + +------+ + | Care New Car Salesperson Name | Role | Phone | [...] 01/02/ | Telephone | [facility] | Daljit Singletary, | Other (chest pain) | | 2019 | | CARDIOLOGY [address] | MD [address] [place] | | | | | [place], | [place], | | | | | [place] [address] | [place] [address] | | | | | [phone] | [phone] | | | | | | | [...] evaluated. He re fused to go to [facility], will come to [facility] He stated he would drive himself. I ca utioned him not too. He refused and will come to [facility] ..................................... .....Mariana Valentine RN on 01/02/19 at [...] | | | | | | [place] [address] | | | | | | [phone] | | | | | | | | +--------+ + + + + documented as of this encounter Visit Diagnoses Not on filedocumented in this encounter"
--- OUTSIDE RECORDS SUMMARY | ~2020-06-03 | XMS | Encounter Summary ---
Demographics + + + | Address | [address] | | | [place] [address] | + + + | Home Phone [...] Providers + +------+ + | Care Customer Contact Representative Name | Role | Phone | + +------+ + | Kirk French MD | PCP | | + +------+ + Encounter Details +--------+ + + + + | Date | Type | Department | Care Team | Description | +--------+ + + + + | 07/01/ | Orders Only | [facility] | Silvia, | Mixed hyperlipidemia | | 2016 | | MED CTR LABORATORY | PARISA [place] [address] | (Primary Dx) | | | | [address] [place] | [place], | | | | | [place] | [place] [address] | | | | | [address] | [phone] | | | | | [phone] | | | +--------+ + + + [...] W | | | | | | [place], | | | | | | [place] [address] | | | | | | [phone] | | | | | | | [...]
--- OUTSIDE RECORDS SUMMARY | ~2020-06-03 | XMS | Encounter Summary ---
Demographics + + + | Address | [address] | | | [place] [address] | + + + | Home Phone [...] Team Providers + +------+ + | Care Pig Machine Supervisor Name | Role | Phone | [...] | Visit | CARDIOLOGY [address] | BEER BREWER [address] [place] | Dx) | | | | [place], | [place], [place] | | | | | [place] [address] | [address] | | | | | [phone] | | | +--------+---------+ + + + [...] Sanchez Date: December 21, 2012 : 1960 License Examiner: PARISA Velazquez Device Public Policy Mediator: Medtronic Sense (mV) Impedance (?) Capture (V) Capture (ms) A Lead 4-5.6 423 1.5 0.09 RV Lead >31.36 539 2.0 0.09 LV Lead Battery Impedance (?): 301 Battery Voltage (V): 2.8 UT Interval (ms): 140 AR Interval (ms): 210 VA Conduction: Mode Switch Events: N/A % of time: -GLACING MACHINE TENDER: 0.6 AP-GLACING MACHINE TENDER: 1.3 -VS: 23.9 AP-VS: 74.2 GLACING MACHINE TENDER: Magnetic Rate: 85 LINDA: 65 [...] | | | | | | [place] [address] | | | | | | [phone] | | | | | | | [...]
--- OUTSIDE RECORDS SUMMARY | ~2020-06-03 | XMS | Encounter Summary ---
Demographics + + + | Address | [address] | | | [place] [address] | + + + | Home Phone [...] | 09/20/ | Refill | [facility] | Michael Amanda, | Medication Refill | | 2011 | | MEDICINE [place] | DO [address] | | | | | [address] | [place] | | | | | [place], [place] | [address] | | | | | [address] | | | | | | [phone] | | | +--------+--------+ + + + [...] that prescription was sent to [facility] in [place]. elephone Encounter - Michael Amanda DO - [...] strips. He is requesting prescription sent to [facility] in [place] for these. He said Medicare will pay [...] | | | | | | [place] [address] | | | | | | [phone] | | | | | | | | +--------+ + + + + documented as of this encounter Visit Diagnoses + + | Diagnosis | + + | Hypoglycemia - Primary Hypoglycemia, unspecified | + + documented in this encounter"
--- OUTSIDE RECORDS SUMMARY | ~2020-06-03 | XMS | Encounter Summary ---
Demographics + + + | Address | [address] | | | [place] [address] | + + + | Home Phone [...] Team Providers + +------+ + | Care Simulation Engineer Name | Role | Phone | [...] + + | 03/07/ | Telephone | [facility] | Daljit Singletary, | Results ([facility]) | | 2020 | | CARDIOLOGY [address] | MD [address] [place] | | | | | [place], | [place], | | | | | [place] [address] | [place] [address] | | | | | [phone] | | | | | | | [...] | | | | | | [place] [address] | | | | | | [phone] | | | | | | | | +--------+ + + + + documented as of this encounter Visit Diagnoses Not on filedocumented in this encounter"
--- OUTSIDE RECORDS SUMMARY | ~2020-06-03 | XMS | Encounter Summary ---
Demographics + + + | Address | [address] | | | [place] [address] | + + + | Home Phone [...] Providers + +------+ + | Care Brake Operator Sheet Metal Name | Role | Phone | [...] CARDIOLOGY [address] | MD [address] [place] | | | | | [place], | [place], | | | | | [place] [address] | [place] [address] | | | | | [phone] | [phone] | | | | | | | [...] | | | | | | [place] [address] | | | | | | [phone] | | | | | | | | +--------+ + + + + documented as of this encounter Visit Diagnoses Not on filedocumented in this encounter"
--- OUTSIDE RECORDS SUMMARY | ~2020-06-03 | XMS | Encounter Summary ---
Demographics + + + | Address | [address] | | | [place] [address] | + + + | Home Phone [...] Providers + +------+ + | Care Space Control Agent Name | Role | Phone [...] | | | pain | [address] [place] [address] | [address] | | | | | Procedures | [place] | [place], | | | | | [place] Nuclear | [place] | [place] | | | | | Stress Test | [address] | [address] | | | | | (Vasodilator | Phone: | Phone: | | | | | ) CHG | [phone] | [phone] | | | | | MYOCARDIAL | Fax: | Fax: | | | | | SPECT | [phone] | [phone] | | | | | MULTIPLE | | | | | | | STUDIES | | | +--------+--------+ + + + + Encounter Details +--------+ + + + + | Date | Type | Department | Care Team | Description | +--------+ + + + + | 12/06/ | Hospital | [facility] | Geri Angel, | Other chest pain | | 2013 | Encounter | MED CTR XRAY [address] | DATABASE MARKETING SPECIALIST [address] [place] | | | | | [place] | [place] | | | | | [place] [address] | [address] | | | | | [phone] | | | +--------+ + + + [...] + + + +---------+ + + | [place]-3 Fatty | CAPS, one capsule by | [...] | | | | | | [place] [address] | | | | | | [phone] | | | | | | | [...] At | + + + | [facility] Diagnostic Imaging | [facility] | | Department [address] [facility] | [facility] | | [ rep [address]] [ rep [facility] | | [facility]] Signed | - IMAGING | | | | | Patient Name: MOE GAY W | | | Physician: JACKLYN : 1960 Age: 53 Sex: M Unit | | | #: [id number] Exam Date: 12/06/13 Location: | | | [facility] #: [id number] Page: | | | %(RAD)RES..mtdd.print.filter("pg") of %(RAD) | | | RES..mtdd.print.filter("tpg") | | | | | | Accession Number: [id number] | | | PERSANTINE SESTAMIBI STRESS TEST, [...] Transcribed Date/Time: 12/07/2013 08:18 | | | Hip Hop Artist: <<Signature on File>> | | | | | | Daljit Singletary MD [facility] FAS12/07/13 1321 <Electronically signed | | | by Daljit Singletary MD, FAC, FACP, ADELINE, [facility]> Daljit | | | MD [employer] [facility] ADELINE 12/07/13 0701 Hip Hop Artist: Jessica | | | Aufjjomjrkhop92/16/14 0818 PARISA Garcia | | + + + + + + + + | Performing | Address | City/State/Zipcode | Phone Number | | Organization | | | | + + + + + | [facility] | [address] | [place] | [phone] | | [facility] | | [address] | | | - IMAGING | | | | + + + + + documented in this encounter Visit Diagnoses + + | Diagnosis | + + | Other chest pain | + + documented in this encounter
--- OUTSIDE RECORDS SUMMARY | ~2020-06-03 | XMS | Encounter Summary ---
Demographics + + + | Address | [address] | | | [place] [address] | + + + | Home Phone [...] Providers + +------+ + | Care Deputy K 9 Name | Role | Phone | + [...] | | | | [place] | [phone] | | | | | [address] | | | | | | [phone] | | | +--------+ + + + [...] + + + +---------+ + + | [place]-3 Fatty | CAPS, one capsule by | [...] | | | | | | [place] [address] | | | | | | [phone] | | | | | | | [...]
--- OUTSIDE RECORDS SUMMARY | ~2020-06-03 | XMS | Encounter Summary ---
Demographics + + + | Address | [address] | | | [place] [address] | + + + | Home Phone [...] Providers + +------+ + | Care Environmental Permitting Specialist Name | Role | Phone | [...] [address] | | | | | | [place], [place] | (Fax) | | | | | [address] | | | | | | [phone] | | | +--------+ + + + [...] | | | | | | [place] [address] | | | | | | [phone] | | | | | | | | +--------+ + + + + documented as of this encounter Visit Diagnoses Not on filedocumented in this encounter"
--- OUTSIDE RECORDS SUMMARY | ~2020-06-03 | XMS | Encounter Summary ---
Demographics + + + | Address | [address] | | | [place] [address] | + + + | Home Phone [...] Team Providers + +------+ + | Care Conciliation Court Judge Name | Role | Phone | + +------+ + PCP | Unavailable | + +------+ + Encounter Details +--------+ + + + + | Date | Type | Department | Care Team | Description | +--------+ + + + + | 08/26/ | Hospital | [facility] | | | | 2009 | Encounter | MED CTR LABORATORY | | | | | | [address] [place] | | | | | | [place] | | | | | | [address] | | | | | | [phone] | | | +--------+ + + + [...] | | | | | | [place] [address] | | | | | | [phone] | | | | | | | | +--------+ + + + + documented as of this encounter Visit Diagnoses Not on filedocumented in this encounter"
--- OUTSIDE RECORDS SUMMARY | ~2020-06-03 | XMS | Encounter Summary ---
Demographics + + + | Address | [address] | | | [place] [address] | + + + | Home Phone [...] Team Providers + +------+ + | Care Flood Control Engineer Name | Role | Phone [...] [address] | | | | | [place], | [place], | | | | | [place] [address] | [place] [address] | | | | | [phone] | [phone] | | | | | | | [...] | | | | | | [place] [address] | | | | | | [phone] | | | | | | | [...]
--- OUTSIDE RECORDS SUMMARY | ~2020-06-03 | XMS | Encounter Summary ---
Demographics + + + | Address | [address] | | | [place] [address] | + + + | Home Phone [...] Team Providers + +------+ + | Care Chaperone Name | Role | Phone | + [...] Results | | 2012 | | MEDICINE [place] | [address] | | | | | [address] | [place] | | | | | [place], [place] | [address] | | | | | [address] | | | | | | [phone] | | | +--------+ + + + [...] | | | | | | [place] [address] | | | | | | [phone] | | | | | | | | +--------+ + + + + documented as of this encounter Visit Diagnoses Not on filedocumented in this encounter"
--- OUTSIDE RECORDS SUMMARY | ~2020-06-03 | XMS | Encounter Summary ---
Demographics + + + | Address | [address] | | | [place] [address] | + + + | Home Phone [...] + | Care Call Or Contact Centre Operator Name | Role | Phone | [...] | | | 2013 | | MEDICINE [place] | DO [address] | | | | | [address] | [place] | | | | | [place] | [address] | | | | | [address] | | | | | | [phone] | | | +--------+ + + + [...] | | | | | | [place] [address] | | | | | | [phone] | | | | | | | | +--------+ + + + + documented as of this encounter Visit Diagnoses Not on filedocumented in this encounter"
--- OUTSIDE RECORDS SUMMARY | ~2020-06-03 | XMS | Encounter Summary ---
Demographics + + + | Address | [address] | | | [place] [address] | + + + | Home Phone [...] Providers + +------+ + | Care Marketing Technology Coordinator Name | Role | Phone | [...] 2019 | | GASTROENTEROLOGY | [address], [place] | | | | | [address] [place] | [address] [place], [place] | | | | | [address] [place], [place] | [address] | | | | | [address] | | | | | | [phone] | | | +--------+ + + + [...] Dr. Daniel / Darryn Call back number: [phone] documented in this encou nter Plan of [...] | | | | | | [place] [address] | | | | | | [phone] | | | | | | | | +--------+ + + + + documented as of this encounter Visit Diagnoses Not on filedocumented in this encounter"
--- OUTSIDE RECORDS SUMMARY | ~2020-06-03 | XMS | Encounter Summary ---
Demographics + + + | Address | [address] | | | [place] [address] | + + + | Home Phone [...] + + | 05/11/ | Hospital | [facility] | Conversion | Lumbago; | | 2013 | Encounter | [facility] | Transaction, | Postlaminectomy | | | | CLINICAL DECISION | Provider Unknown | syndrome, cervical | | | | UN[address] | | region; Cervicalgia | | | | [place], [place] | (Fax) | | | | | [address] | Cesar, | | | | | [phone] | MD Gamaliel | | +--------+ + [...] + + + +---------+ + + | [place]-3 Fatty | CAPS, one capsule by | [...] (none) Author Type: Registered Nurse Filed: 05/11/14 150 Date of Service: 05/11/141504 Status: Signed Lead Scientist: Meliza Macario RN (Registered Nurse) Pt discharged [...] 1424 Date of Service: 05/11/141422 Status: Signed Lead Scientist: Heike Mckeon RN (Registered Nurse) Called doctor Tanya for orders for and dc plan, he put in orders and said he would be by to check on the patient within an hour. Hieke Mckeon docume nted in this encounter Plan [...] | | | | | | [place] [address] | | | | | | [phone] | | | | | | | [...] | | | intrathecal use. See the aircraft engine dismantler examination for details of the | | | injection. Bone algorithm noncontrast technique with reformatted | | | sagittal and coronal images. Prior study for review : CT discogram | | | from 2004 was used to orient this examination given the transitional | | | anatomy of the lumbosacral junction FINDINGS: Coal Washer is notable | | | for a [...] for intrathecal use. See | | the aircraft engine dismantler examination for details of the injection. Bone algorithm noncontrast | | technique with reformatted sagittal and coronal images. Prior study for review : CT | | discogram from 2004 was used to orient this examination given the transitional anatomy | | of the lumbosacral junction FINDINGS: Coal Washer is notable for a pacing system. Anterior [...]
--- OUTSIDE RECORDS SUMMARY | ~2020-06-03 | XMS | Encounter Summary ---
Demographics + + + | Address | [address] | | | [place] [address] | + + + | Home Phone [...] Providers + +------+ + | Care Contact And Service Clerks Supervisor Name | Role | Phone | [...] + + | 11/29/ | Telephone | [facility] | Darin Gandhi | Appointment | | 2020 | | GASTROENTEROLOGY | MD Jacek [address] | | | | | [address] [place] | [address] [place] | | | | | [address] [place], [place] | [place] [address] | | | | | [address] | [phone] | | | | | [phone] | | | +--------+ + + + [...] after receiving a call from Johanna at [facility]; she advised pt was reluctant to [...] | | | | | | [place] [address] | | | | | | [phone] | | | | | | | | +--------+ + + + + documented as of this encounter Visit Diagnoses Not on filedocumented in this encounter"
--- OUTSIDE RECORDS SUMMARY | ~2020-06-03 | XMS | Encounter Summary ---
Demographics + + + | Address | [address] | | | [place] [address] | + + + | Home Phone [...] Team Providers + +------+ + | Care Wealth Management Director Name | Role | Phone [...] | | | | | [address] | | | | | | [place], [place] | | | | | | [address] | | | | | | [phone] | | | +--------+ + + + [...] | | | | | | [place] [address] | | | | | | [phone] | | | | | | | [...]
--- OUTSIDE RECORDS SUMMARY | ~2020-06-03 | XMS | Encounter Summary ---
Demographics + + + | Address | [address] [place] [address] [address] | | | [place] [address] | + + + | Home Phone [...] [place] | | | | | [address] | | + + + + + Care Team Providers + +------+ + | Care Hand Chain Maker Name | Role | Phone | [...] | 2019 | | Center at [facility] 3485 | MD [address] | diarrhea; sent to | | | | [address] | [place], [place] | ED) | | | | for Health and | [address] | | | | | [facility], [facility] 2 | [phone] | | | | | [place], [place] | | | | | | [address] | | | | | | [phone] | | | +--------+ + + + [...]
--- OUTSIDE RECORDS SUMMARY | ~2020-06-03 | XMS | Encounter Summary ---
Demographics + + + | Address | [address] | | | [place] [address] | + + + | Home Phone [...] Team Providers + +------+ + | Care Jv Baseball Coach Name | Role | Phone | + +------+ + | Kirk French MD | PCP | | + +------+ + Encounter Details +--------+ + + + + | Date | Type | Department | Care Team | Description | +--------+ + + + + | 01/19/ | Hospital | [facility] | Conversion | Pain | | 2017 | Encounter | CONVERSION DEP [address] | Transaction, | | | | | JUANJO HOLT | Provider Unknown | | | | | [place] | [phone] | | | | | [address] | | | | | | [phone] | | | +--------+ + + + [...] + + + +---------+ + + | [place]-3 Fatty | CAPS, one capsule by [...] | | | | | | [place], | | | | | | [place] [address] | | | | | | [phone] | | | | | | | [...]
--- OUTSIDE RECORDS SUMMARY | ~2020-06-03 | XMS | Encounter Summary ---
Demographics + + + | Address | [address] | | | [place] [address] | + + + | Home Phone [...] Providers + +------+ + | Care Manager Software Name | Role | Phone | + [...] | 08/31/ | Refill | [facility] | Kirk French | Medication Refill | | 2019 | | [facility] | MD [address] | | | | | [address] | [address] | | | | | [address] | [place] [address] | | | | | [place], [place] | [phone] | | | | | [address] | | | | | | [phone] | | | +--------+--------+ + + + [...] | | | | | | [place] [address] | | | | | | [phone] | | | | | | | | +--------+ + + + + documented as of this encounter Visit Diagnoses Not on filedocumented in this encounter"
--- OUTSIDE RECORDS SUMMARY | ~2020-06-03 | XMS | Encounter Summary ---
Demographics + + + | Address | [address] | | | [place] [address] | + + + | Home Phone [...] Team Providers + +------+ + | Care Floorperson Name | Role | Phone | + +------+ + PCP | Unavailable | + +------+ + Encounter Details +--------+ + + + + | Date | Type | Department | Care Team | Description | +--------+ + + + + | 02/28/ | [facility] | [facility] | Geri Angel, | | | 2011 | Encounter | MED CTR XRAY [address] | TELESALES ADVISOR [address] | | | | | [address] [place] | [place] | | | | | [place] [address] | [id number] | | | | | [phone] | | | +--------+ + + + [...] | | | | | | [place] [address] | | | | | | [phone] | | | | | | | [...] + | [facility] Diagnostic Imaging Department | [place] | | [address] [place] | [place] [email or web address] | | LEFT HEART CATHETERIZATION | [facility] | | REPORT 02/29/2012 HEMODYNAMICS: Aortic [...] was taken to | | | Cardiac Irrigation System Installer. He was prepared and draped in the usual fashion | | | under a sterile technique and local anesthesia, percutaneous access | | | was obtained using #6- Burundian sheath in the right femoral artery. | | | Right heart cath was not performed in this patient. Left | | | ventriculography was performed using #6-Burundian pigtail catheter. | | | The selective coronary angiography were then performed in several | | | sagittal and oblique projection using the 6-Burundian JL 4 and #6 Burundian | | | 3DRC diagnostic catheters. The [...] Transcribed | | | Date/Time: 02/29/2012 09:09 Product Lead: | | | <Electronically Signed by Daljit Singletary MD [facility] FASE> 02/29/12 | | | 1002 | | + + + + + | Procedure Note | + + | Kalpesh Brown Conversion - 12/29/2013 5:04 PM [facility] | | Diagnostic Imaging Department | | [address], [place] | | | [...] patient was taken to Cardiac | | Irrigation System Installer. He was prepared and draped in the usual fashion under a sterile | | technique and local anesthesia, percutaneous access was obtained using #6- | | Burundian sheath in the right femoral artery. Right heart cath was not performed | | in this patient. Left ventriculography was performed using #6-Burundian pigtail | | catheter. The selective coronary angiography were then performed in several | | sagittal and oblique projection using the 6-Burundian JL 4 and #6 Burundian 3DRC | | diagnostic catheters. The patient [...] | Transcribed Date/Time: 02/29/2012 09:09 | | Product Lead: | | <Electronically Signed by Daljit Singletary MD [facility] ADELINE> 02/29/12 1002 | + + [...]
--- OUTSIDE RECORDS SUMMARY | ~2020-06-03 | XMS | Encounter Summary ---
Demographics + + + | Address | [address] | | | [place] [address] | + + + | Home Phone [...] Team Providers + +------+ + | Care Weigher And Grader Name | Role | Phone | [...] Results | | 2013 | | [facility] | DO [address] | | | | | [address] | [place], [place] | | | | | [place], [place] | [address] | | | | | [address] | | | | | | [phone] | | | +--------+ + + + [...] him of lab results. elephone Encounter - Besty Bernardo RN - 07/31/2014 1:49 PM PDTCalled [...] | | | | | | [place] [address] | | | | | | [phone] | | | | | | | | +--------+ + + + + documented as of this encounter Visit Diagnoses Not on filedocumented in this encounter"
--- OUTSIDE RECORDS SUMMARY | ~2020-06-03 | XMS | Encounter Summary ---
Demographics + + + | Address | [address] [place] [address] [address] | | | [place] [address] | + + + | Home Phone [...] [place] | | | | | [address] | | + + + + + Care Team Providers + +------+ + | Care Dredge Deckhand Name | Role | Phone | [...] Yao | | | | | at [facility] | [facility] | | | | | [address] | [place] [address] | | | | | [address] | | | | | | [place], [address] [place] [address] | | | | | | [place], [place] | | | | | | [address] | | | | | | [phone] | | | +--------+ + + + [...] view image for the detailed interpretation from [employer] results. | CARDIOLOGY | + + + + + + + + | Performing | Address | City/State/Zipcode | Phone Number | | Organization | | | | + + + + + | [facility] | [address] | [place], [place] | | | CARDIOLOGY | [address] | [address] | | + + + + + documented in this encounter Visit Diagnoses Not on filedocumented in this encounter"
--- OUTSIDE RECORDS SUMMARY | ~2020-06-03 | XMS | Encounter Summary ---
Demographics + + + | Address | [address] | | | [place] [address] | + + + | Home Phone [...] + | 06/27/ | Telephone | [facility] | Michael Amanda, | ED Follow-up (s/p | | 2013 | | MEDICINE [place] | DO [address] | [facility]) | | | | [address] | [place] | | | | | [place] | [address] | | | | | [address] | | | | | | [phone] | | | +--------+ + + + [...] aneurysm may be enlarged, though CT at [facility] showed no changes. He is sending reports to [facility] ([place], [place]) for review by cardiac team there. [...] | | | | | | [place] [address] | | | | | | [phone] | | | | | | | | +--------+ + + + + documented as of this encounter Visit Diagnoses Not on filedocumented in this encounter
--- OUTSIDE RECORDS SUMMARY | ~2020-06-03 | XMS | Encounter Summary ---
Demographics + + + | Address | [address] [place] [address] [address] | | | [place] [address] | + + + | Home Phone [...] [place] | | | | | [address] | | + + + + + Care Team Providers + +------+ + | Care Pit Boss Name | Role | Phone | [...] | | 2019 | | Center at [facility] [address]85 | MD [address] | | | | | [address] [place] | [place], [place] | | | | | for Health and | [address] | | | | | [facility] 2 | [phone] | | | | | [place], [place] | | | | | | [address] | | | | | | [phone] | | | +--------+ + + + [...]
--- OUTSIDE RECORDS SUMMARY | ~2020-06-03 | XMS | Encounter Summary ---
Demographics + + + | Address | [address] | | | [place] [address] | + + + | Home Phone [...] Providers + +------+ + | Care Shirt Ironer Name | Role | Phone | [...] [address] | | | | | [place], | [place], | | | | | [place] [address] | [place] [address] | | | | | [phone] | [phone] | | | | | | | [...] | | | | | | [place] [address] | | | | | | [phone] | | | | | | | | +--------+ + + + + documented as of this encounter Visit Diagnoses Not on filedocumented in this encounter"
--- OUTSIDE RECORDS SUMMARY | ~2020-06-03 | XMS | Encounter Summary ---
Demographics + + + | Address | [address] | | | [place] [address] | + + + | Home Phone [...] Team Providers + +------+ + | Care Cabinetmaker Maintenance Name | Role | Phone | [...] + + | 05/15/ | Office | [facility] | Matthew Uriarte | Kidney stones | | 2019 | Visit | [address] | MD Tawanna [address] | (Primary Dx) | | | | [place] | [address] [place] [facility] [place] | | | | | [address] | [address] | | | | | [phone] | | | +--------+---------+ + + + [...] CV LHC; Surgeon: Daljit Singletary MD; Location: [facility] CV LAB CARDIAC CATHERIZATION N/A 01/25/2019 Procedure: CV Cor Angio; Surgeon: Daljit Singletary MD; Location: [facility] CV LAB COLONOSCOPY N/A 12/24/2017 Procedure: COLONOSCOPY; Surgeon: Emmanuel Daniel MD; Location: [facility] MEDICAL PROCEDURE UNIT COLONOSCOPY N/A 01/05/2019 Procedure: COLONOSCOPY; Surgeon: Emmanuel Daniel MD; Location: [facility] MEDICAL PROCEDURE UNIT EGD 12/24/2017 HARDWARE [...] Procedure: EGD; Surgeon: Emmanuel Daniel MD; Location: [facility] MEDICAL PROCEDURE UNIT UPPER GASTROINTESTINAL ENDOSCOPY N/A 01/05/2019 Procedure: EGD; Surgeon: Emmanuel Daniel MD; Location: [facility] MEDICAL PROCEDURE UNIT URETEROSCOPY Left 04/13/2019 Procedure: Cystoscopy, Left ureteroscopy with laser lithotripsy, Left ureteral stent place ment; Surgeon: Matthew Uriarte MD; Location: [facility] MAIN OR VASECTOMY Family History: Family [...] EVERY DAY, Disp: 90 tablet, Rfl: 3 [facility] Natural Products (OSTEO BI-FLEX/5-LOXIN ADVANCED PO), Take [...] 911, Disp: 100 ta blet, Rfl: 3 [place]-3 Fatty Acids (SALMON OIL-1000 PO), CAPS, one capsule by mouth daily twice daily , Disp: , Rfl: ondansetron (ZOFRAN ODT) 4 mg disintegrating tablet, Take 4 mg by mouth every 8 hours as needed for Nausea., Disp: , Rfl: ONE TOUCH DELICA LANCETS [facility], Check glucose as [...] pH, Urine 8.0 5.0 - 8.0 Specific [place] 1.008 1.001 - 1.030 Protein, Urine Negative [...] have not thoroughly proofread this note, and dustless operator errors are very likely to occur. [...] | | | | | | [place] [address] | | | | | | [phone] | | | | | | | [...]
--- OUTSIDE RECORDS SUMMARY | ~2020-06-03 | XMS | Encounter Summary ---
Demographics + + + | Address | [address] | | | [place] [address] | + + + | Home Phone [...] Providers + +------+ + | Care Paper Rewinder Operator Name | Role | Phone | + +------+ + | Kirk French MD | PCP | | + +------+ + Encounter Details +--------+ + + + + | Date | Type | Department | Care Team | Description | +--------+ + + + + | 11/17/ | Telephone | [facility] | Kirk French | | | 2019 | | [facility] Guidry MD [address] | | | | | [address] | [address] | | | | | [address] | [place] [address] | | | | | [place], [place] | [phone] | | | | | [address] | | | | | | [phone] | | | +--------+ + + + [...] 12/06/2019 12:47 PM PSTDisregarded per [facility] at [facility] elephone Encounter - Geri Bear Lode Miner - 11/24/2019 12:20 PM PSTsee elephone Encounter - Nadeem French MD - 11/24/2019 12:19 PM PSTDefer to his hog sawyer, pretty common procedeu re elephone Encou nter - Geri Bear Lode Miner - 11/24/2019 11:44 AM PSTPlease adviseElectronicall y signed by Geri Bear Lode Miner at 11/24/2019 11:44 AM PSTTelephone Encounter - Shelley Hess - 11/17/2019 2:37 PM PSTProvider: Dr. Manolo Valdaez called needing a recommendation for where patient can get a capsules endoscopy do ne. Caller: Campos Relationship to patient:[facility] Please call back at [phone] Can a Detailed VM be left on [...] | | | | | | [place] [address] | | | | | | [phone] | | | | | | | | +--------+ + + + + documented as of this encounter Visit Diagnoses Not on filedocumented in this encounter"
--- OUTSIDE RECORDS SUMMARY | ~2020-06-03 | XMS | Encounter Summary ---
Demographics + + + | Address | [address] | | | [place] [address] | + + + | Home Phone [...] Providers + +------+ + | Care Financial Administrative Assistant Name | Role | Phone [...] | 10/23/ | Refill | [facility] | Kennethshaistatesha Shaistakenneth, | Medication Refill | | 2013 | | CARDIOLOGY [address] | | | | | [place], | [place], | | | | | [place] [address] | [place] [address] | | | | | [phone] | [phone] | | | | | | | [...] | | | | | | [place] [address] | | | | | | [phone] | | | | | | | | +--------+ + + + + documented as of this encounter Visit Diagnoses Not on filedocumented in this encounter"
--- OUTSIDE RECORDS SUMMARY | ~2020-06-03 | XMS | Encounter Summary ---
Demographics + + + | Address | [address] | | | [place] [address] | + + + | Home Phone [...] Providers + +------+ + | Care Clerk Travel Reservations Name | Role | Phone | + [...] + + | 03/22/ | Refill | [facility] | Kirk French | Medication Refill | | 2019 | | [facility] | MD Bre[address] | | | | | [address] | [address] | | | | | [address] | [place] [address] | | | | | [place], [place] | [phone] | | | | | [address] | | | | | | [phone] | | | +--------+--------+ + + + [...] | | | | | | [place] [address] | | | | | | [phone] | | | | | | | | +--------+ + + + + documented as of this encounter Visit Diagnoses Not on filedocumented in this encounter"
--- OUTSIDE RECORDS SUMMARY | ~2020-06-03 | XMS | Encounter Summary ---
Demographics + + + | Address | [address] | | | [place] [address] | + + + | Home Phone [...] Team Providers + +------+ + | Care Wader Boot Top Assembler Name | Role | Phone | [...] + + | 08/23/ | Telephone | [facility] | Anshumarianatesha Rashadotto, | Other (edema is | | 2015 | | CARDIOLOGY [address] | blood clots) | | | | [place], | [place], | | | | | [place] [address] | [place] [address] | | | | | [phone] | [phone] | | | | | | | [...] | | | | | | [place] [address] | | | | | | [phone] | | | | | | | | +--------+ + + + + documented as of this encounter Visit Diagnoses Not on filedocumented in this encounter"
--- OUTSIDE RECORDS SUMMARY | ~2020-06-03 | XMS | Encounter Summary ---
Demographics + + + | Address | [address] | | | [place] [address] | + + + | Home Phone [...] Providers + +------+ + | Care Fabric Designer Name | Role | Phone | + +------+ + PCP | Unavailable | + +------+ + Encounter Details +--------+ + + + + | Date | Type | Department | Care Team | Description | +--------+ + + + + | 04/22/ | [facility] | [facility] | | | | 2011 | Encounter | MED CTR XRAY [address] | | | | | | [place] | | | | | | [place] [address] | | | | | | [phone] | | | +--------+ + + + [...] + + + +---------+ + + | [place]-3 Fatty | CAPS, one capsule by | [...] W | | | | | | [place], | | | | | | [place] [address] | | | | | | [phone] | | | | | | | [...] | [facility] Diagnostic Imaging Department | [facility] | | [address] [facility] | [facility] | | CT MYELOGRAM LUMBAR SPINE, [...] Transcribed Date/Time: | | | 04/23/2012 11:06 Paid Internship: <Electronically Signed | | | by Jama Solis MD> 04/24/12 0730 | | + + + + + | Procedure Note | + + | Kevin, Rad Conversion - 12/29/2013 5:27 PM [facility] | | Diagnostic Imaging Department [address] [place] [address] | | CT MYELOGRAM LUMBAR SPINE, 04/22/2012 [...] 10:54 | |Transcribed Date/Time: 04/23/2012 11:06 | |Paid Internship: | |<Electronically Signed by Jama Solis MD> [...] | [facility] Diagnostic Imaging Department | [facility] | | [address] [facility] | [facility] | | THORACIC CT MYELOGRAM | [...] Transcribed Date/Time: 04/22/2012 17:32 | | | Paid Internship: <Electronically Signed by Jama Mason | | | MD Will> 04/23/12 1039 | | + + + + + | Procedure Note | + + | Kalpesh Brown Conversion - 12/29/2013 5:27 PM [facility] | | Diagnostic Imaging Department [address] [place] [address] | | THORACIC CT MYELOGRAM CLINICAL HISTORY: [...] 16:56 | |Transcribed Date/Time: 04/22/2012 17:32 | |Paid Internship: | |<Electronically Signed by Jama Solis MD> [...] | [facility] Diagnostic Imaging Department | [facility] | | [address] [facility] | [facility] | | CT MYELOGRAM CERVICAL SPINE | [...] Similar study from | | | 09/02/2009, [facility]. FINDINGS: Firm bony ankylosis | | [...] Transcribed Date/Time: | | | 04/22/2012 17:25 Paid Internship: <Electronically Signed | | | by Jama Solis MD> 04/23/12 1039 | | + + + + + | Procedure Note | + + | Kevin, Kalpesh Conversion - 12/29/2013 5:27 PM [facility] | | Diagnostic Imaging Department | | [address] [facility] | | | | | | | [...] | | COMPARISON: Similar study from 09/02/2009, [facility]. | | | | FINDINGS: Firm [...] | Transcribed Date/Time: 04/22/2012 17:25 | | Paid Internship: | | <Electronically Signed by Jama Solis [...] | [facility] Diagnostic Imaging Department | [facility] | | [address] [facility] | [facility] | | LUMBAR MYELOGRAM INJECTION FOR [...] Transcribed Date/Time: 04/22/2012 16:36 | | | Paid Internship: <Electronically Signed by Jama Mason | | | MD Will> 04/23/12 1039 | | + + + + + | Procedure Note | + + | Kevin, Kalpesh Conversion - 12/29/2013 5:27 PM [facility] | | Diagnostic Imaging Department [address] [facility] [place] | | LUMBAR MYELOGRAM INJECTION [...] 15:51 | |Transcribed Date/Time: 04/22/2012 16:36 | |Paid Internship: | |<Electronically Signed by Jama Solis MD> [...]
--- OUTSIDE RECORDS SUMMARY | ~2020-06-03 | XMS | Encounter Summary ---
Demographics + + + | Address | [address] [place] [address] [address] | | | [place] [address] | + + + | Home Phone [...] [place] | | | | | [address] | | + + + + + Care Team Providers + +------+ + | Care Furniture Finisher Apprentice Name | Role | Phone | [...] | | | | | Unintentiona | [address] | | | | | | l weight | Ave | | | | | | loss | [facility] [place] | | | | | | Abdominal | [address] | | | | | | cramping | Phone: | | | | | | Chronic | [phone] | | | | | | diarrhea | Fax: | | | | | | Rectal | [phone] | | | | | | bleeding [...] | | 2020 | | Center at [facility] [address]75 | MD [address] | | | | | [address] | [facility] [place] | | | | | for Health and | [address] | | | | | Healing, Building [address] | [phone] | | | | | [facility] [place] | | | | | | [address] | | | | | | [phone] | | | +--------+ + + + [...]
--- OUTSIDE RECORDS SUMMARY | ~2020-06-03 | XMS | Encounter Summary ---
Demographics + + + | Address | [address] | | | [place] [address] | + + + | Home Phone [...] Providers + +------+ + | Care Database Development Project Manager Name | Role | [...] | | | | [place] | [phone] | | | | | [address] | | | | | | [phone] | | | +--------+ + + + [...] + + + +---------+ + + | Gleason-3 Fatty | CAPS, one capsule by | [...] | | | | | | [place] [address] | | | | | | [phone] | | | | | | | [...]
--- OUTSIDE RECORDS SUMMARY | ~2020-06-03 | XMS | Encounter Summary ---
Demographics + + + | Address | [address] | | | [place] [address] | + + + | Home Phone [...] Providers + +------+ + | Care Hot Box Operator Name | Role | Phone | + +------+ + PCP | Unavailable | + +------+ + Encounter Details +--------+ + + + + | Date | Type | Department | Care Team | Description | +--------+ + + + + | 05/13/ | [facility] | [facility] | Dom Graham, | | | 2010 | Encounter | MED CTR EMERGENCY | [address] | | | | | CENTER [address] | [place] | | | | | [place] | [address] | | | | | [address] | | | | | | [phone] | | | +--------+ + + + [...] home. He has appointment with h is associate professor tomorrow. He should return to the ER if he develops any new or concerning symptoms. DICTATED BY: Dom Graham M.D. Emergency Medicine JOB #: [id number] EXT JOB #:[id number] <Electronicall y Signed by Dom Graham MD> [...] | | | | | | [place] [address] | | | | | | [phone] | | | | | | | [...] | | | | | the [facility] [place] | | | | | | Access Analyzer. | | | | + + + + + + + + | Specimen | + + | | + + + + + + + | Performing | Address | City/State/Zipcode | Phone Number | | Organization | | | | + + + + + | [facility] | [address] | [place], [place] | [phone] | | [facility] | | [address] | | | - LABORATORY | | | | + + + + + | [facility] | [address] | [place], [place] | | | [facility] | | [address], [facility] | | | - [...] + | [facility] | [address] | [place], [place] | [phone] | | [facility] | | [address] | | | - LABORATORY | | | | + + + + + | [facility] | [address] | [place], [place] | | | [facility] | | [facility], [facility] | | | - [...] [address] | [place] | [phone] | | [facility] | | [address] | | | - LABORATORY | | | | + + + + + | [facility] | [address] | [place] | | | [facility] | | [address], [facility] | | | - [...] | | | | | | the [employer] | | | | | | Access Analyzer. | | | | + + + + + + + + | Specimen | + + | | + + + + + + + | Performing | Address | City/State/Zipcode | Phone Number | | Organization | | | | + + + + + | [facility] | [address] | [place], [place] | [phone] | | [facility] | | [address] | | | - LABORATORY | | | | + + + + + | [facility] | [address] | [place], [place] | | | [facility] | | [phone] [place] [address] | | | - LABORATORY | | | | + + + + + XR Chest AP Portable (05/13/2011 3:01 PM PDT) + + | Specimen | + + | | + + + + + | Narrative | Performed At | + + + | [facility] Diagnostic Imaging Department | [facility] | | [address] [facility] | [facility] | | PORTABLE CHEST CLINICAL | [...] Transcribed Date/Time: | | | 05/13/2011 17:06 Hotel Night Auditor: <Electronically Signed | | | by Jama Solis MD> 05/13/112038 | | + + + + + | Procedure Note | + + | Kalpesh Brown Conversion - 12/29/2013 3:12 PM [facility] | | Diagnostic Imaging Department [address] [facility] | | PORTABLE CHEST CLINICAL HISTORY: TACHYCARDIA. [...] 16:57 | |Transcribed Date/Time: 05/13/2011 17:06 | |Hotel Night Auditor: | |<Electronically Signed by Jama Solis MD> 05/13/112038 | + + + +---------+ + + | Performing | Address | City/State/Zipcode | Phone Number | | Organization | | | | + +---------+ + + | [place] | | | | | [facility] | | | | + +---------+ + + documented in this encounter Visit Diagnoses Not on filedocumented in this encounter"
--- OUTSIDE RECORDS SUMMARY | ~2020-06-03 | XMS | Encounter Summary ---
Demographics + + + | Address | [address] | | | [place] [address] | + + + | Home Phone [...] | 06/03/ | Hospital | [facility] | | | | 2008 | Encounter | MED CTR EMERGENCY | | | | | | [address] | | | | | | [place] | | | | | | [address] | | | | | | [phone] | | | +--------+ + + + [...] | | | | | | [place] [address] | | | | | | [phone] | | | | | | | | +--------+ + + + + documented as of this encounter Visit Diagnoses Not on filedocumented in this encounter"
--- OUTSIDE RECORDS SUMMARY | ~2020-06-03 | XMS | Encounter Summary ---
Demographics + + + | Address | [address] | | | [place] [address] | + + + | Home Phone [...] [address] | | | | | [place], | [place], | | | | | [place] [address] | [place] [address] | | | | | [phone] | [phone] | | | | | | | [...] | | | | | | [place] [address] | | | | | | [phone] | | | | | | | | +--------+ + + + + documented as of this encounter Visit Diagnoses Not on filedocumented in this encounter"
--- OUTSIDE RECORDS SUMMARY | ~2020-06-03 | XMS | Encounter Summary ---
Demographics + + + | Address | [address] | | | [place] [address] | + + + | Home Phone [...] Providers + +------+ + | Care Disc Recordist Name | Role | Phone | + +------+ + | Michael Amanda DO | PCP | | + +------+ + Encounter Details +--------+ + + + + | Date | Type | Department | Care Team | Description | +--------+ + + + + | 01/31/ | Hospital | [facility] | Adrian Gutierrez MD | | | 2012 | Encounter | HEART MED CTR | [address] | | | | | EMERGENCY CENTER | [place], [place] | | | | | [address] | [address] | | | | | [place] | [phone] | | | | | [address] | | | | | | [phone] | | | +--------+ + + + [...] + + + +---------+ + + | Ashburn-3 Fatty | CAPS, one capsule by | [...] 01/31/2013 Age/Sex: 52Y / M : [id number] / [id number] CHIEF COMPLAINT: Dizziness with chest discomfort. HISTORY OF PRESENT ILLNESS: This is a 52-year-old male here from [place], [place]. Appare ntly, he has a history of bradycardia and a pacemaker, also PVCs or PACs, and is on a stabl e dose of metoprolol, but was referred to Dr. Gambino here in [place] for ablation procedur e. This was undertaken [...] back home tomorrow. He has a primary personal health coach that he sees in [place]. The patient's pacemaker has been there for [...] and listed as disabled. He lives in [place]. He says his d octor is Dr. Singletary. He is a nonsmoker. PHYSICAL EXAMINATION: GENERAL: A robust-appearing 52-year-old male, slightly anxious, but in no obvious distress . VITAL SIGNS: Initial blood pressure 135/93, heart rate 71 and seems MOE GAY ADM:01/31/13 [id number] [facility] EMERGENCY DEPARTMENT RECORD [id number] [facility] Adrian rosenthal MD E-Sign: [facility] THIS REPORT IS CONFIDENTIAL AND NOT TO BE RELEASED WITHOUT PROPER AUTHORIZATION. [facility] regular, respirations 16, oxygen saturation 97% [...] high, BUN and VICTOR HUGOMOE Jaimee ADM:01/31/13 [id number] [facility] EMERGENCY DEPARTMENT RECORD 4194-7096 [facility] Adrian rosenthal MD E-Sign: [facility] THIS REPORT IS CONFIDENTIAL AND NOT TO BE RELEASED WITHOUT PROPER AUTHORIZATION. [facility] creatinine are 14 and 0.9. No [...] can follow [place] with [place]. Certainly, if he has chest pain while here in [place], he to return immediately for re peat evaluation. DIAGNOSES: 1. Arrhythmia with near syncope in context of recent attempted ablation, symptomatic PVC s. 2. Noncardiac chest pain 3. Mild hypokalemia, again, it has been replaced, and we will recommend increased potass ium intake in his diet for the short-term. 4. He was discharged. Adrian Gutierrez MD P A SPM/dkm #[id number] cc: MD Adrian Pleitez MD Suwong Wongsuwan, MD Electronically Signed 02/16/13 1055 Adrian Gutierrez MD MONA GAY ADM:01/31/13 [id number] [facility] EMERGENCY DEPARTMENT RECORD 6611-6817 [facility] Adrian rosenthal MD E-Sign: [facility] THIS REPORT IS CONFIDENTIAL AND [...] | | | | | | [place] [address] | | | | | | [phone] | | | | | | | [...] + + + | Exam Performed Location: [facility] [place] TWO-VIEW | MISCELANIOUS | | CHEST CLINICAL [...] | an acute cardiopulmonary process. S: SQ ([id number]) Signed by: | | | JAYNE SPEAR MD | | + + + + + | Procedure Note | + + | Kevin, Rad Conversion - 09/13/2013 10:25 PM PDT Exam Performed Location: [facility] | [facility] CHEST[facility]ICAL INFORMATION:Shortness of | | breath.COMPARISON:None.FINDINGS:There is a left subclavian dual lead cardiac pacer. The | | heart sizeand mediastinal contours are normal. The pulmonary vasculature isnormal. No | | focal airspace opacities, pleural effusions, orpneumothorax. Cervical fusion hardware | | is noted. No acute osseousfindings.IMPRESSION:No evidence of an acute cardiopulmonary | | process.S: SQ ([id number]) Signed by: JAYNE SPEAR MD | |COMPARISON: [...] | | | | | |S: SQ ([id number]) Signed by: JAYNE SPEAR MD | + + + +---------+ + + | Performing | Address | City/State/Zipcode | Phone Number | | Organization | | | | + +---------+ + + | [facility] | | | [phone] | + +---------+ + + | MISCELANIOUS LAB | | | [phone] | + +---------+ + + Troponin I [...] + | YESSY JONES | [address] | [place] [address] | | | [facility] [...] [facility] | [address] [facility] [address]. | [place] [address] | | | [facility]ART [facility] | [...] + | YESSY JONES | [address] | [place] [address] | | | [facility]ART [facility] | | | | | LABORATORY [...] + | YESSY JONES | [address] | [place] [address] | | | HEART [facility] | | | | | LABORATORY | | | | + + + + + | [facility]Y JONES | | | | | HEART [facility] | | | | | LABORATORY [...] + + | Glucose | 154 (H)Comment: Indian | 65 - 99 mg/dL | [facility] | | | | Diabetes Association | [...] + | YESSY JONES | [address] [place]. | [place] [address] | | | [facility] [...]
--- OUTSIDE RECORDS SUMMARY | ~2020-06-03 | XMS | Encounter Summary ---
Demographics + + + | Address | [address] [place] [address] [address] | | | [place] [address] | + + + | Home Phone [...] [place] | | | | | [address] | | + + + + + [...] | | | | [address] [place] | [place], [place] | | | | | for Health and | [address] | | | | | Healing, [address] | [phone] | | | | | [place], [place] | | | | | | [address] | | | | | | [phone] | | | +--------+ + + + [...]
--- OUTSIDE RECORDS SUMMARY | ~2020-06-03 | XMS | Encounter Summary ---
Demographics + + + | Address | [address] | | | [place] [address] | + + + | Home Phone [...] Providers + +------+ + | Care Mail Processing Associate Name | Role | Phone | [...] + | 06/22/ | Telephone | [facility] | Michael Amanda, | Eye Problem | | 2012 | | [facility]IC[place] | DO [address] | | | | | [address] | [place] | | | | | [place] | [address] | | | | | [address] | | | | | | [phone] | | | +--------+ + + + [...] care provider Patient can be reached at Home:[phone] Patient also says he needs physical Talked [...] | | | | | | [place] [address] | | | | | | [phone] | | | | | | | | +--------+ + + + + documented as of this encounter Visit Diagnoses Not on filedocumented in this encounter"
--- OUTSIDE RECORDS SUMMARY | ~2020-06-03 | XMS | Encounter Summary ---
Demographics + + + | Address | [address] | | | [place] [address] | + + + | Home Phone [...] Episode | [facility] | Kaylynn oCpeland | | | 2019 | Changes | GASTROENTEROLOGY | M, RN | | | | | [address] [place] | | | | | | [address] [place], [place] | | | | | | [address] | | | | | | [phone] | | | +--------+ + + + [...] | | | | | | [place] [address] | | | | | | [phone] | | | | | | | | +--------+ + + + + documented as of this encounter Visit Diagnoses Not on filedocumented in this encounter"
--- OUTSIDE RECORDS SUMMARY | ~2020-06-03 | XMS | Encounter Summary ---
Demographics + + + | Address | [address] | | | [place] [address] | + + + | Home Phone [...] Team Providers + +------+ + | Care Buttermaker Helper Name | Role | Phone | [...] Refill | | 2013 | | [facility]IC[facility] | DO [address] | | | | | [address] | [place] | | | | | [place], [place] | [address] | | | | | [address] | | | | | | [phone] | | | +--------+--------+ + + + [...] | | | | | | [place] [address] | | | | | | [phone] | | | | | | | | +--------+ + + + + documented as of this encounter Visit Diagnoses Not on filedocumented in this encounter"
--- OUTSIDE RECORDS SUMMARY | ~2020-06-03 | XMS | Encounter Summary ---
Demographics + + + | Address | [address] | | | [place] [address] | + + + | Home Phone [...] Providers + +------+ + | Care Cafeteria Assistant Name | Role | Phone | [...] + + | 04/21/ | Telephone | [facility] | Emmanuel Daniel MD | Irritable Bowel | | 2019 | | GASTROENTEROLOGY | [address], [place] | Syndrome | | | | [address] [place] | [address] [place], [place] | | | | | [address] [place], [place] | [address] | | | | | [address] | | | | | | [phone] | | | +--------+ + + + [...] to hear from [facility] [employer], records were refaxed 04/10/2019. She will get [...] | | | | | | [place] [address] | | | | | | [phone] | | | | | | | | +--------+ + + + + documented as of this encounter Visit Diagnoses Not on filedocumented in this encounter"
--- OUTSIDE RECORDS SUMMARY | ~2020-06-03 | XMS | Encounter Summary ---
Demographics + + + | Address | [address] | | | [place] [address] | + + + | Home Phone [...] Team Providers + +------+ + | Care Peeler Operator Name | Role | Phone | [...] [place] | | | | | | [address] | [address] Phone: | | | | | | Phone: | [phone] | | | | | | [phone] | Fax: | | | | | | Fax: | [phone] | | | | | | [phone] | | +--------+ + + + + [...] | diurnal enuresis | | | | [place], [place] | [place], [place] | (Primary Dx); BPH | | | | [address] | [address] | with | | | | [phone] | | obstruction/lower | | | | [...] H e states that the surgeon in [place] who performed his neck surgery is no longer practicing a nd was apparently disciplined and had his license revoked by the [facility]. He has us ed marijuana for [...] for Chest pain. 25 tablet 12 [place]-3 Fatty Acids (SALMON OIL-1000 PO) CAPS, [...] Date/Time: 04/22/2012 16:56 Transcribed Date/Time: 04/22/2012 17:32 Paper Machine Supervisor: <Electronically Signed by Jama Solis MD> [...] Date/Time: 04/23/2012 10:54 Transcribed Date/Time: 04/23/2012 11:06 Paper Machine Supervisor: <Electronically Signed by Jama Solis MD> 04/24/12 0716 IMPRESSION: 1. Nocturnal and diurnal enuresis. I [...] bladder, still believe that the recommendations from [facility] neurosurgeon, Dr. Demarco, on 03/13/2014 would [...] have not thoroughly proofread this note, and school services officer erro rs may occur. CC: Kirk French MD documented in this en counter Procedure Notes ONBASE SCAN [facility] - 12/04/2014 12:00 AM PSTAssociated Order(s): IMAGING REPORT - EXTERNAL SC AN documented in this encount er Miscellaneous Notes Addendum Note - Kira Espinoza RN - 12/05/2014 9:52 AM PST Addended by: BECCA ESPINOZA on: 12/05/2014 09:52 Modules accepted: Orders iscellaneous - ONBASE SCAN [facility] - 12/04/2014 12:00 AM PSTElectronically signed by teresa, [facility] at 5 12:23 PM PSTMiscellaneous - [facility] - 12/04/2014 12:00 AM PSTElectronically kamaljit d by teresa [facility] at 12/29/2014 12:23 PM PSTdocumented [...] | | | | | | [place] [address] | | | | | | [phone] | | | | | | | [...] 1.001 - 1.030 | | | | [place], | | | | | | [facility], [...]
--- OUTSIDE RECORDS SUMMARY | ~2020-06-03 | XMS | Encounter Summary ---
Demographics + + + | Address | [address] | | | [place] [address] | + + + | Home Phone [...] + +------+ + | Care Material Damage Appraiser Name | Role | Phone | + +------+ + | Kirk French MD | PCP | | + +------+ + Encounter Details +--------+---------+ + + + | Date | Type | Department | Care Team | Description | +--------+---------+ + + + | 09/26/ | Office | [facility] | Kirk French | Weight loss (Primary | | 2018 | Visit | GERALDINE Guidry MD [address] | Dx); Bipolar | | | | [facility]IMARY [facility] [address] | affective disorder, | | | | [address] | [place] [address] | remission status | | | | [place], [place] | [phone] | unspecified (HCC); | | | | [address] | | Mixed anxiety | | | | [phone] | | depressive disorder; | | | [...] wasn't treated. 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; Easy Voyagetronic Peptic ulcer disease Premature ventricular contraction Preventative [...] NEEDED FOR CHEST PAIN 250 tablet 0 [place]-3 Fatty Acids (SALMON OIL-1000 PO) CAPS, one capsule by mouth daily twice daily ondansetron (ZOFRAN ODT) 4 mg disintegrating tablet Take 4 mg by mouth every 8 hours as needed for Nausea. ONE TOUCH DELICA LANCETS [facility] [...] PLT 169 06/02/2019 No results found for: [id number] No results found for: FOLATE No results [...] ER visits Going again to [facility] tomorrow Already followed by [facility] in [...] | | | | | | [place] [address] | | | | | | [phone] | | | | | | | [...]
--- OUTSIDE RECORDS SUMMARY | ~2020-06-03 | XMS | Encounter Summary ---
Demographics + + + | Address | [address] | | | [place] [address] | + + + | Home Phone [...] Providers + +------+ + | Care Corporate Staff Accountant Name | Role | Phone | + +------+ + PCP | Unavailable | + +------+ + Encounter Details +--------+ + + + + | Date | Type | Department | Care Team | Description | +--------+ + + + + | 10/29/ | Hospital | [facility] | Pia Akhtar | | | 2003 | Encounter | CONVERSION [address] | [address] | | | | | [address] | [address] | | | | | [place] | [place] [address] | | | | | [address] | [phone] | | | | | [phone] | | | +--------+ + + + [...] | | | | | | [place] [address] | | | | | | [phone] | | | | | | | | +--------+ + + + + documented as of this encounter Visit Diagnoses Not on filedocumented in this encounter"
--- OUTSIDE RECORDS SUMMARY | ~2020-06-03 | XMS | Encounter Summary ---
Demographics + + + | Address | [address] | | | [place] [address] | + + + | Home Phone [...] + +------+ + | Care Furniture Mover Helper Name | Role | Phone [...] + + | 05/01/ | Refill | [facility] | Kirk French | Medication Orders | | 2020 | | [facility] | MD [address] | | | | | [facility] [address] | | | | | [address] | [place] [address] | | | | | [place], [place] | [phone] | | | | | [address] | | | | | | [phone] | | | +--------+--------+ + + + [...] Miscellaneous Notes Addendum Note - Hailey Girard, Senior Staff Specialized Employment - 05/02/2020 2:30 PM PDT Add ended [...] left ankle. Please send both medication to [id number] - [place], [place] - [address] [phone] (Phone) Sia Vasquez Ext [phone] elephone Encounter - Hailey Girard, Senior Staff Specialized Employment - 05/02/2020 8:42 AM PDTLeft VM to patient to call back and let us know what strength of Lyrica he is on so provider can prescribed. E lectronically signed by Hailey aPdron Senior Staff Specialized Employment at 05/02/2020 8:43 AM PDTTelephone Encounter - Kirk French MD - 05/02/2020 8:03 AM PDTOk as requestedEl ectronically signed by Kirk French MD at 05/02/2020 8:03 AM PDTTelephone Encounter - Geri Bear Senior Staff Specialized Employment - 05/01/2020 1:50 PM PDTPlease adviseElectronically si gned by Geri Bear Senior Staff Specialized Employment at 05/01/2020 1:50 PM PDTTelephone Encounter - Kailyn Gomes - 05/01/2020 1:48 PM PDTFred, is calling regarding Medication Orders and would like a call back. Additional Call Details: Patient states he is no longer going to the pain management clinic and is requesting for Dr. French to start prescribing Lyrica to help with the pain. Yasmany crowe call him back at [phone] If this is a symptom based call, was patient offered triage? Not Applicable If this is a symptom based call and you were unable to immediately transfer the call to a lorraine bellamy assistant floor covering printer was caller made aware that if at [...] | | | | | | [place] [address] | | | | | | [phone] | | | | | | | | +--------+ + + + + documented as of this encounter Visit Diagnoses + + | Diagnosis | + + | Left ankle pain, unspecified chronicity - Primary | + + documented in this encounter"
--- OUTSIDE RECORDS SUMMARY | ~2020-06-03 | XMS | Encounter Summary ---
Demographics + + + | Address | [address] | | | [place] [address] | + + + | Home Phone [...] Team Providers + +------+ + | Care Grab Hooker Name | Role | Phone | [...] | MD [address] | [address] | | | | | hypertension | [address] | [place], | | | | | Sick sinus | [address] | [place] | | | | | syndrome | [facility], [place] | [address] | | | | | (HCC) | [address] | Phone: | | | | | Ventricular | Phone: | [phone] | | | | | premature | [phone] | Fax: | | | | | depolarizati | Fax: | [phone] | | | | | on | [phone] | | | | | | Tachycardia, | | | | | | | unspecified | | | | | | | | | | | | | | Atherosclero | | | | | | | tic heart | | | | | | | disease of | | | | | | | skok[place]ish | | | | | | [...] + + | 05/01/ | Office | [facility] | Silvia, | Sinoatrial node | | 2020 | Visit | CARDIOLOGY [address] | PARISA [place] [address] | dysfunction (HCC) | | | | [place], | [place], | with symptomatic | | | | [place] [address] | [place] [address] | bradycardia (Primary | | | | [phone] | [phone] | Dx); Symptomatic | | | | | | PVCs; Tachycardia; | | | | | | Coronary artery | | | | | | disease involving | | | | | | sk[place] coronary | | | | | | artery of [place] | | | | | | heart [...] encounter Patient Instructions Patient Instructions Vidhi Gillespie, Pedigree Tracer - 05/01/2020 3:00 PM PDT1. Incre ase [...] and has received error codes. Referred to [facility]cted line. Monthly remote monitoring. Device interrogation due in office at [facility]. Janeen Allison ARNP - 05/01/2020 3:00 PM PDTFormatting of th is note might be different from the original. PATIENT NAME: Moe Sanchez : 1960: AGE: 60 y.o. PRIMARY CARE: Kirk French MD OUTPATIENT FOLLOW UP VISIT Date of Service: 05/01/2020 HISTORY OF PRESENT ILLNESS: Moe Sanchez is a 60 y.o. male with a history of critical coronary artery disea se involving [place] coronary artery of [place] heart without angina pectoris, essential hyper tension, [...] advised to having his MRI done in [place] at [facility] has a repeat MRI protocol for such situations. Patient also will need echocardiogram for his next appointment to evaluate his ascending aorta Since that time,on 01/11/2020 he was seen by PCP for follow up. On 01/31/2020 patient called and states that he sees a pain specialist in [place] and they would like him to start [...] Coronary artery disease involving sk[place] coronary artery of sk[place] heart without angina pectoris Marijuana use Ascending [...] mg capsule Take 25 mg by mouth. Bomoseen-3 Fatty Acids (SALMON OIL-1000 PO) CAPS, one [...] was found Confirmed by SYDNI SINGLETARY MD ([id number]) on 06/06/2019 3:43:10 PM LAB RESULTS reviewed during visit today primarily from [facility]: LIPID Lab Results Component Value Date [...] BNP 48 06/02/2019 I reviewed records from [facility] for office visit on 01/01/2020 ich is summarized in the HPI. RESULTS- I reviewed reports from [facility]: No results found. Above data and testing is reviewed this visit; testing below is historical data unless othe rwise specified. ASSESSMENT: 1. Non-critical Coronary artery disease involving sk[place] coronary artery of sk[place] heart wi [facility] angina pectoris: A.Normal exercise sestamibi stress [...] cannot completely be ru led out. [facility] 12/25/13, shows non critical coronary [...] no limitations of ac tivities of the [employer] functional class. Heart failure stage [...] by Dr Juan Diego Gambino at [facility] on 01/30/2013.Patient had spontaneous PVC'sfr om [...] to go back in 3 days to [place] for an attempt of ablation under general [...] at his follow up visit Vidhi Clemente, Pedigree Tracer am acting as a scribe on behalf of, and in the prese nce of PARISA Lomas. - Vidhi Gillespie, Pedigree Tracer 05/01/2020 12:50 PM IJaneen ARNP, personally performed the services described in this documentati on, as scribed in my presence and it is both accurate and complete. -PARISA Lomas 05/01/2020 Portions of this chart may have been created with [email or web address] voice recognition software. Occasi onal wrong-word or [...] | | | | | | [place] [address] | | | | | | [phone] | | | | | | | [...] Coronary artery disease involving skok[place] coronary artery of skokom[place] heart without | | angina pectoris | [...]
--- OUTSIDE RECORDS SUMMARY | ~2020-06-03 | XMS | Encounter Summary ---
Demographics + + + | Address | [id number] [place] [address] [address] | | | [place] [address] | + + + | Home Phone [...] [place] | | | | | [address] | | + + + + + [...] as of this encounter Progress Notes Interface, Light Rail Transit Operator In - 07/19/2006 3:05 AM PDTCLINIC DATE: 06/13/2002 ORTHOPEDIC CLINIC REFERRING PHYSICIAN: Eugene Vera D.O. [address] [place] [address] Mr. Sanchez is a new patient. He [...] proceed. Martell Allen M.D. ELIZABETH / KATTY [id number] / [id number] / [id number] / [id number] cc: Eugene Vera D.O. [address] [place] [id number] signed by Interface, Light Rail Transit Operator In at 07/19/2006 3:0 5 AM PDTdocumented in this encounter Plan of Treatment Not on filedocumented as of this encounter Visit Diagnoses Not on filedocumented in this encounter
--- OUTSIDE RECORDS SUMMARY | ~2020-06-03 | XMS | Encounter Summary ---
Demographics + + + | Address | [address] | | | [place] [address] | + + + | Home Phone [...] Team Providers + +------+ + | Care Sonar Watchstander Name | Role | Phone | + [...] 2017 | | CARDIOLOGY [address] | TIP CUTTER [address] | | | | | [place], | [place], [place] | | | | | [place] [address] | [address] | | | | | [phone] | | | +--------+--------+ + + + [...] | | | | | | [place] [address] | | | | | | [phone] | | | | | | | | +--------+ + + + + documented as of this encounter Visit Diagnoses Not on filedocumented in this encounter"
--- OUTSIDE RECORDS SUMMARY | ~2020-06-03 | XMS | Encounter Summary ---
Demographics + + + | Address | [address] | | | [place] [address] | + + + | Home Phone [...] Team Providers + +------+ + | Care Driller Operator Name | Role | Phone | + +------+ + | Darion Holden DO | PCP | | + +------+ + Encounter Details +--------+ + + + + | Date | Type | Department | Care Team | Description | +--------+ + + + + | 08/05/ | [facility] | [facility] | Emmanuel Daniel MD | | | 2009 | Encounter | MED CTR XRAY [address] | [address] | | | | | [place] | [address] [place], [place] | | | | | [place], [place] [address] | [address] | | | | | [phone] | | | +--------+ + + + [...] | | | | | | [place] [address] | | | | | | [phone] | | | | | | | | +--------+ + + + + documented as of this encounter Visit Diagnoses Not on filedocumented in this encounter"
--- OUTSIDE RECORDS SUMMARY | ~2020-06-03 | XMS | Encounter Summary ---
Demographics + + + | Address | [address] | | | [place] [address] | + + + | Home Phone [...] + +------+ + | Care Program Support Clerk Name | Role | Phone | [...] of lumbar | | 2016 | | [facility] | Russ, DO [address] | paraspinal muscle, | | | | [facility] | [address] | initial encounter; | | | | [address] | [place], [place] | Left hip pain | | | | [place], [place] | [address] | | | | | [address] | | | | | | [phone] | | | +--------+ + + + [...] + + + +---------+ + + | Hazelton-3 Fatty | CAPS, one capsule by | [...] Notes by Perez Montoya PA-C at 01/25/17 606 Author: Perez Montoya PA-C Service: Emergency Department Author Type: Physician Densitometer Reader - Certified Filed: 01/25/17 0522 Date of Service: 01/25/171457 Status: Signed Conciliator: Perez Montoya PA-C (Physician Densitometer Reader - Certified) Cosigner: Russ riley DO at 01/28/17 1225 Procedures [facility] EMERGENCY DEPARTMENT History of Present Illness Patient [...] follow-up appointment with his orthopedist tomorrow in [place]. Past Medical History Diagnosis Date Hyperlipidemia Hypertension Back pain Other chronic pain PVC (premature ventricular contraction) Sleep apnea Bipolar 1 disorder (HCC) Anxiety and depression Fibromyalgia Thrombocytopenia (HCC) Fatigue Abdominal pain Chronic neck pain Syncope Insomnia Ulcerative colitis (HCC) Sinoatrial node dysfunction (HCC) Pacemaker Hep B w/o coma PUD (peptic ulcer disease) Fatty liver disease, nonalcoholic Hypoglycemia Tachycardia CAD (coronary artery disease), shoshone-bannock artery transplanted heart Thoracic ascending aortic aneurysm (HCC) Multiple substance abuse Cannabis abuse Chronic pain syndrome Past Surgical History Procedure Laterality Date Spine surgery Abdominal surgery adhesions removed Pacemaker insertion Laser ablation x3 Cardiac catheterization Hardware removal Appendectomy [facility] Knee arthroscopy Bilateral Shoulder surgery Bilateral Rotator Cuff Repairs Spinal fusion 4 Cervical fusions; [place] Spinal fusion 2 Lumbar Fusions; [place] Prior to Admission medications Medication [...] mouth 2 (two) times daily. Historical Provider [facility] Natural Products (OSTEO BI-FLEX ADV JOINT SHIELD [...] Education: 12 Occupational History Disabled Retired from [employer] Social History Main Topics Smoking [...] MD In 1 day as scheduled [address] [facility] [address] [facility] Emergency Department If symptoms worsen [address] [place] [address] Discharge Medications: Discharge Medication List as of 01/25/2017 3:24 PM Perez Montoya PA-C 01/25/172156 onversion Tr ansaction, Provider Unknown - 01/25/2017 2:13 PM PSTFormatting of this note might be differ ent from the original. ED Notes by Jessica Arellano RN at 01/25/17 141 Author: Jessica Arellano RN Service: (none) Author Type: Registered Nurse Filed: 01/25/17 1414 Date of Service: 01/25/171412 Status: Signed Conciliator: Jessica Arellano RN (Registered Nurse) C/o l [...] | | | | | | [place] [address] | | | | | | [phone] | | | | | | | [...] Kalpesh Conversion - 07/06/2019 12:12 AM FRANCY [id number] years MaleXR | | LUMBAR SPINE LIMITED [...]
--- OUTSIDE RECORDS SUMMARY | ~2020-06-03 | XMS | Encounter Summary ---
Demographics + + + | Address | [address] | | | [place] [address] | + + + | Home Phone [...] Team Providers + +------+ + | Care Collaborating Supervising Physician Name | Role | Phone | + +------+ + | Kirk French MD | PCP | | + +------+ + Encounter Details +--------+ + + + + | Date | Type | Department | Care Team | Description | +--------+ + + + + | 10/25/ | [facility] | [facility] | Kirk French | Aneurysm (HCC) | | 2017 | Encounter | MED CTR ULTRASOUND | D, MD [address] | | | | | [address] [place] | [address] | | | | | [place], [place] | [place] [address] | | | | | [address] | [phone] | | | | | [phone] | | | | | | | [...] + + + +---------+ + + | Hunter-3 Fatty | CAPS, one capsule by | [...] | | | | | | [place] [address] | | | | | | [phone] | | | | | | | | +--------+ + + + + documented as of this encounter Visit Diagnoses + + | Diagnosis | + + | Aneurysm (HCC) Aneurysm of unspecified site | + + documented in this encounter"
--- OUTSIDE RECORDS SUMMARY | ~2020-06-03 | XMS | Encounter Summary ---
Demographics + + + | Address | [address] | | | [place] [address] | + + + | Home Phone [...] Providers + +------+ + | Care Pearl Stringer Name | Role | Phone | + [...] + + | 01/25/ | Office | [facility] | Daljit Singletary, | Other chest pain | | 2012 | Visit | CARDIOLOGY [address] | [address] | (Primary Dx); PVC's | | | | [place], | [place], | (premature | | | | [place] [address] | [place] [address] | ventricular | | | | [phone] | [phone] | contractions) | | | | | [...] note, lorraine painting has appointment to see behavior support specialist for PVCs ablations consultation on [...] tablet Take 1,000 mg by mouth Daily. [place]-3 Fatty Acids (SALMON OIL-1000 PO) CAPS, one [...] tablet Take 1,000 mg by mouth Daily. [place]in-3 Fatty Acids (SALMON OIL-1000 PO) CAPS, one [...] | | | | | | [place] [address] | | | | | | [phone] | | | | | | | [...]
--- OUTSIDE RECORDS SUMMARY | ~2020-06-03 | XMS | Encounter Summary ---
Demographics + + + | Address | [address] | | | [place] [address] | + + + | Home Phone [...] + +------+ + | Care Central Supply Worker Name | Role | Phone | [...] + + | 01/26/ | Telephone | [facility] | Daljit Singletary, | Other (chest pain) | | 2013 | | CARDIOLOGY [address] | MD [address] | | | | | [place], | [place], | | | | | [place] [address] | [place] [address] | | | | | [phone] | [phone] | | | | | | | [...] | | | | | | [place] [address] | | | | | | [phone] | | | | | | | | +--------+ + + + + documented as of this encounter Visit Diagnoses Not on filedocumented in this encounter"
--- OUTSIDE RECORDS SUMMARY | ~2020-06-03 | XMS | Encounter Summary ---
Demographics + + + | Address | [address] | | | [place] [address] | + + + | Home Phone [...] Providers + +------+ + | Care Block Sorter Name | Role | Phone | [...] [address] | | | | | | [place], [place] | (Fax) | | | | | [address] | | | | | | [phone] | | | +--------+ + + + [...] | | | | | | [place] [address] | | | | | | [phone] | | | | | | | | +--------+ + + + + documented as of this encounter Visit Diagnoses Not on filedocumented in this encounter"
--- OUTSIDE RECORDS SUMMARY | ~2020-06-03 | XMS | Encounter Summary ---
Demographics + + + | Address | [address] [place] [address] [address] | | | [place] [address] | + + + | Home Phone [...] [place] | | | | | [address] | | + + + + + Care Team Providers + +------+ + | Care Dental Mold Maker Name | Role | Phone [...] | | Bradycardia | | | | [facility] | | | | | | and Healing, | | | | | | [address] | | | | | | [place], [place] | | | | | | [address] | | | | | | [phone] | | | +--------+------+ + + + [...] Way Lab) | [facility] | | [facility] [place] [address] [address] [facility] | REGIONAL | | [place] [address] | LABORATORY | + + + + + + + + | Performing | Address | City/State/Zipcode | Phone Number | | Organization | | | | + + + + + | [facility] | [address] | [place] [address] | | | LABORATORY | | | [...] [facility] ([address] [facility]) | | | [facility] [place] [address] | | | [place] [address] | | + + + + + + + + | Performing | Address | City/State/Zipcode | Phone Number | | Organization | | | | + + + + + | [facility] | [address] | [place] [address] | | | LABORATORY | | | [...] | | | DEPARTMENT | | | [facility] | | | OF | | | [...] | + + + + + | [facility] | [address] | [place] [address] | | | PATHOLOGY | [address] | | | + + + + + documented in this encounter Visit Diagnoses + + | Diagnosis | + + | Chest pain Chest pain, unspecified | + + | Bradycardia Other specified cardiac dysrhythmias | + + documented in this encounter"
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
== END 2020-06-03 13:50 | disposition left against medical advice (07) ==
LOC: ED 13:28
DX: Z53.21 Procedure and treatment not carried out due to patient leaving prior to being seen by health care provider (principal)

== ENCOUNTER 2020-06-07 21:28 | Emergency (ER) | payer MEDICARE ==
[~2020-06-07] VITALS: Ht 193 cm; Wt 117.9 kg
--- OUTSIDE RECORDS SUMMARY | ~2020-06-07 | XMS | Encounter Summary ---
Demographics + + + | Address | [address] | | | [place] [address] | + + + | Home Phone | | + + + | Preferred Language | Unknown | + + + | Marital Status | | + + + | Christianity Affiliation | 1013 | + + + | Race | Unknown | + + + | Ethnic Group | Unknown | + + + Author + + + | Author | [facility] | | | and [place] | + + + | Organization | [facility] | | | and [place] | + + + | Address | Unknown | + + + | Phone | Unavailable | + + + Support + + +---------+ + | Name | Relationship | Address | Phone | + + +---------+ + | Nadine Kingsley | ECON | Unknown | | + + +---------+ + Care Team Providers + +------+ + | Care Order Caller Name | Role | Phone | + +------+ + | Michael Amanda DO | PCP | | + +------+ + Reason for Visit +--------+--------+ + | Reason | Onset | Comments | | | Date | | +--------+--------+ + | Other | 10/09/ | | | | 2012 | | +--------+--------+ + Encounter Details +--------+ + + + + | Date | Type | Department | Care Team | Description | +--------+ + + + + | 10/09/ | Telephone | [facility] | Michael Amanda, | Other | | 2012 | | [facility] [place] | DO [address] | | | | | [address] | [place] | | | | | [place], [place] | [address] | | | | | [address] | | | | | | [phone] | | | +--------+ + + + [...] + + documented as of this encounter Miscellaneous Notes Telephone Encounter - Omaira Bedoya RN - 10/09/2013 10:49 AM Jessica Huttonstalin from [facility] NicoletteNestor called She is the print shop manager for [employer] They just wanted to let you know that the patient has been seen in the ER 5 times recently Wanted to let you know that he had 2 episodes of Chest pain and another for shortness of br eath and dizziness They just wanted to make sure that you knew about these emergency room visits They have tried to contact the patient to tell him to use his PCP or urgent care for more v isits Chest pain they understand why he went to the emergency room but they would like to stress that other options are more cost effective Electronically signed by Omaira Bedoya RN at 10:59 AM PSTdocumented in this encounter Plan of Treatment +--------+ [...] [place], | | | | | | [place] [address] | | | | | | [phone] | | | | | | | | +--------+ + + + + documented as of this encounter Visit Diagnoses Not on filedocumented in this encounter"
--- OUTSIDE RECORDS SUMMARY | ~2020-06-07 | XMS | Encounter Summary ---
Demographics + + + | Address | [address] | | | [place] [address] | + + + | Home Phone | | + + + | Preferred Language | Unknown | + + + | Marital Status | | + + + | Anabaptist Affiliation | 1013 | + + + | Race | Unknown | + + + | Ethnic Group | Unknown | + + + Author + + + | Author | [facility] | | | and [place] | + + + | Organization | [facility] | | [...] Team Providers + +------+ + | Care Storage Brine Worker Name | Role | Phone | + +------+ + PCP | Unavailable | + +------+ + Encounter Details +--------+ + + + + | Date | Type | Department | Care Team | Description | +--------+ + + + + | 11/14/ | [facility] | [facility] | William Hirsch | | | 1999 | Encounter | [facility] | [address] | | | | CENTER [address] | [address] | | | | | [place] | [place] [address] | | | | | [address] | [phone] | | | | | [phone] | | | +--------+ + + + [...] | | | | | | [place], | | | | | | [place] [address] | | | | | | [phone] | | | | | | | | +--------+ + + + + documented as of this encounter Visit Diagnoses Not on filedocumented in this encounter"
--- OUTSIDE RECORDS SUMMARY | ~2020-06-07 | XMS | Encounter Summary ---
Demographics + + + | Address | [address] | | | [place] [address] | + + + | Home Phone | | + + + | Preferred Language | Unknown | + + + | Marital Status | | + + + | Cheondoism Affiliation | 1013 | + + + | Race | Unknown | + + + | Ethnic Group | Unknown | + + + Author + + + | Author | [facility] | | | and [place] | + + + | Organization | [facility] | | | [...] Team Providers + +------+ + | Care Furniture Cleaner Name | Role | Phone | + +------+ + | Kirk French MD | PCP | | + +------+ + Encounter Details +--------+ + + + + | Date | Type | Department | Care Team | Description | +--------+ + + + + | 12/31/ | Orders Only | [facility] | Kirk French | | | 2017 | | [address] | | | | | [place] | [address] | | | | | [address] | [place] [address] | | | | | [phone] | [phone] | | | | | | | [...] | | | | | | [place] [address] | | | | | | [phone] | | | | | | | | +--------+ + + + + documented as of this encounter Procedures + +--------+ + + + | Procedure Name | Priori | Date/Time | Associated Diagnosis | Comments | | | ty | | | | + +--------+ + + + | LIPASE | Routin | 12/31/2016 | | Results for this | | | e | 2:14 PM | | procedure are in the | | | | PST | | results section. | + +--------+ + + + | AMYLASE | Routin | 12/31/2016 | | Results for this | | | e | 2:14 PM | | procedure are in the | | | | PST | | results section. | + +--------+ + + + | EXTERNAL LAB: CBC | Routin | 12/31/2016 | | Results for this | | | e | 2:13 PM | | procedure are in the | | | | PST | | results section. | + +--------+ + + + | LIPID PANEL | Routin | 12/31/2016 | | Results for this | | | e | 2:13 PM | | procedure are in the | | | | PST | | results section. | + +--------+ + + + | PSA, SCREEN | Routin | 12/31/2016 | | Results for this | | | e | 2:13 PM | | procedure are in the | | | | PST | | results section. | + +--------+ + + + | TSH | Routin | 12/31/2016 | | Results for this | | | e | 2:13 PM | | procedure are in the | | | | PST | | results section. | + +--------+ + + + | COMPREHENSIVE | Routin | 12/31/2016 | | Results for this | | METABOLIC PANEL | e | 2:13 PM | | procedure are in the | | | | PST | | results section. | + +--------+ + + + documented in this encounter Results Lipase (12/31/2016 2:14 PM PST) + +-------+ + + + | Component | Value | Ref Range | Performed | Pathologist | | | | | At | Signature | + +-------+ + + + | Lipase | 150 | 73 - 393 U/L | EXTERNAL | | | | | | LAB | | + +-------+ + + + + + | Specimen | + + | Blood specimen | | (specimen) | + + + +---------+ + + | Performing | Address | City/State/Zipcode | Phone Number | | Organization | | | | + +---------+ + + | EXTERNAL LAB | | | | + +---------+ + + Amylase (12/31/2016 2:14 PM PST) + +-------+ + + + | Component | Value | Ref Range | Performed | Pathologist | | | | | At | Signature | + +-------+ + + + | Amylase | 40 | 25 - 115 U/L | EXTERNAL | | | | | | LAB | | + [...] | + +---------+ + + External Lab: CBC (12/31/2016 2:13 PM PST) + + + + + + | Component | Value | Ref Range | Performed | Pathologist | | | | | At | Signature | + + + + + + | WBC | 8.46 | 3.80 - 11.00 | EXTERNAL | | | | | 10*3/uL | LAB | | + + + + + + | Non- | 5.30 | 4.20 - 5.70 | EXTERNAL | | | Red Blood | | 10*6/uL | LAB | | | Cells | | | | | | Counted | | | | | + + + + + + | Hemoglobin | 17.8 (H) | 13.2 - 17.0 | EXTERNAL | | | | | g/dL | LAB | | + + + + + + | Hematocrit, | 50.4 (H) | 39.0 - 50.0 % | EXTERNAL | | | POC | | | LAB | | + + + + + + | MCV | 95.0 | 80.0 - 100.0 fL | EXTERNAL | | | | | | LAB | | + + + + + + | MCH | 33.6 | 27.0 - 34.0 pg | EXTERNAL | | | | | | LAB | | + + + + + + | MCHC | 35.4 | 32.0 - 35.5 | EXTERNAL | | | | | g/dL | LAB | | + + + + + + | RDW-CV | 43.3 | 37 - 53 fL | EXTERNAL | | | | | | LAB | | + + + + + + | Platelet | 152 | 150 - 400 | EXTERNAL | | | Count | | 10*3/uL | LAB | | | Plasma | | | | | + + + + + + | MPV | 10.2 | fL | EXTERNAL | | | | | | LAB | | + + + + + + | Differentia | AUTOMATED | | EXTERNAL | | | l Type | | | LAB | | + + + + + + | % Segmented | 64.59 | % | EXTERNAL | | | | | | LAB | | | Neutrophils | | | | | + + + + + + | % | 24.06 | % | EXTERNAL | | | Lymphocytes | | | LAB | | + + + + + + | % Monocytes | 9.65 | % | EXTERNAL | | | | | | LAB | | + + + + + + | % | 0.67 | % | EXTERNAL | | | Eosinophils | | | LAB | | + + + + + + | % Basophils | 1.03 | % | EXTERNAL | | | | | | LAB | | + + + + + + | Absolute | 5.47 | 1.90 - 7.40 | EXTERNAL | | | Segmented | | 10*3/uL | LAB | | | Neutrophils | | | | | + + + + + + | Absolute | 2.04 | 1.00 - 3.90 | EXTERNAL | | | Lymphocytes | | 10*3/uL | LAB | | + + + + + + | Absolute | 0.82 (H) | 0.00 - 0.80 | EXTERNAL | | | Monocytes | | 10*3/uL | LAB | | + + + + + + | Absolute | 0.06 | 0.00 - 0.50 | EXTERNAL | | | Eosinophils | | 10*3/uL | LAB | | + + + + + + | Absolute | 0.09 | 0.00 - 0.10 | EXTERNAL | | | Basophils | | 10*3/uL | LAB | | + + + + + + + + | Specimen | + + | Blood specimen | | (specimen) | + + + +---------+ + + | Performing | Address | City/State/Zipcode | Phone Number | | Organization | | | | + +---------+ + + | EXTERNAL LAB | | | | + +---------+ + + TSH (12/31/2016 2:13 PM PST) + +-------+ + + + | Component | Value | Ref Range | Performed | Pathologist | | | | | At | Signature | + +-------+ + + + | TSH | 1.07 | 0.45 - 5.10 | EXTERNAL | | | | | u[iU]/mL | LAB | | + +-------+ + + + + + | Specimen | + + | Blood specimen | | (specimen) | + + + +---------+ + + | Performing | Address | City/State/Zipcode | Phone Number | | Organization | | | | + +---------+ + + | EXTERNAL LAB | | | | + +---------+ + + PSA, Screen (12/31/2016 2:13 PM PST) + +-------+ + + + | Component | Value | Ref Range | Performed | Pathologist | | | | | At | Signature | + +-------+ + + + | PSA, Free | 0.42 | 0.00 - 4.00 | EXTERNAL | | | Pct | | ng/mL | LAB | | + +-------+ + + + + + | Specimen | + + | Blood specimen | | (specimen) | + + + +---------+ + + | Performing | Address | City/State/Zipcode | Phone Number | | Organization | | | | + +---------+ + + | EXTERNAL LAB | | | | + +---------+ + + Lipid Panel (12/31/2016 2:13 PM PST) + +-------+ + + + | Component | Value | Ref Range | Performed | Pathologist | | | | | At | Signature | + +-------+ + + + | Cholesterol | 162 | mg/dL | EXTERNAL | | | | | | LAB | | + +-------+ + + + | Triglycerid | 118 | mg/dL | EXTERNAL | | | es | | | LAB | | + +-------+ + + + | HDL | 44 | mg/dL | EXTERNAL | | | | | | LAB | | + +-------+ + + + | LDL, | 94 | mg/dL | EXTERNAL | | | Calculated | | | LAB | | + +-------+ + + + + + | Specimen | + + | Blood specimen | | (specimen) | + + + +---------+ + + | Performing | Address | City/State/Zipcode | Phone Number | | Organization | | | | + +---------+ + + | EXTERNAL LAB | | | | + +---------+ + + Comprehensive Metabolic Panel (12/31/2016 2:13 PM PST) + + + + + + | Component | Value | Ref Range | Performed | Pathologist | | | | | At | Signature | + + + + + + | Na | 140 | 135 - 145 | EXTERNAL | | | | | mmol/L | LAB | | + + + + + + | K | 4.0 | 3.5 - 4.9 | EXTERNAL | | | | | mmol/L | LAB | | + + + + + + | Cl | 105 | 99 - 109 mmol/L | EXTERNAL | | | | | | LAB | | + + + + + + | CO2 | 24 | 23 - 32 mmol/L | EXTERNAL | | | | | | LAB | | + + + + + + | Anion Gap | 15 | 5 - 20 mmol/L | EXTERNAL | | | | | | LAB | | + + + + + + | Glucose, | 89 | 65 - 99 mg/dL | EXTERNAL | | | Fasting | | | LAB | | + + + + + + | BUN | 18 | 8 - 25 mg/dL | EXTERNAL | | | | | | LAB | | + + + + + + | Creatinine | 0.9 | 0.70 - 1.30 | EXTERNAL | | | | | mg/dL | LAB | | + + + + + + | BUN/Creatin | 20 | | EXTERNAL | | | ine Ratio | | | LAB | | + + + + + + | Calcium | 10.1 | 8.5 - 10.5 | EXTERNAL | | | | | mg/dL | LAB | | + + + + + + | Protein, | 7.3 | 6.3 - 8.2 g/dL | EXTERNAL | | | Total | | | LAB | | + + + + + + | Albumin | 4.4 | 3.6 - 5.0 g/dL | EXTERNAL | | | | | | LAB | | + + + + + + | Globulin | 2.9 | 1.3 - 4.9 g/dL | EXTERNAL | | | | | | LAB | | + + + + + + | A/G Ratio | 1.5 | 1.0 - 2.4 | EXTERNAL | | | | | | LAB | | + + + + + + | Bilirubin | 0.8 | 0.1 - 1.5 mg/dL | EXTERNAL | | | Total | | | LAB | | + + + + + + | ALP, | 65 | 35 - 115 U/L | EXTERNAL | | | External | | | LAB | | + + + + + + | AST | 27 | 10 - 45 U/L | EXTERNAL | | | | | | LAB | | + + + + + + | ALT | 32 | 10 - 65 U/L | EXTERNAL | | | | | | LAB | | + + + + + + | Estimated | >60Comment: GFR <60: | mL/min/1.73_m2 | EXTERNAL | | | GFR | CHRONIC KIDNEY DISEASE, | | LAB | | | | IF FOUND OVER A 3 MONTH | | | | | | PERIOD. GFR <15: KIDNEY | | | | | | FAILURE. FOR | | | | | | AMERICANS, MULTIPLY THE | | | | | | CALCULATED GFR BY 1.210. | | | | + + + [...]
--- OUTSIDE RECORDS SUMMARY | ~2020-06-07 | XMS | Encounter Summary ---
Demographics + + + | Address | [address] | | | [place] [address] | + + + | Home Phone | | + + + | Preferred Language | Unknown | + + + | Marital Status | | + + + | Anabaptist Affiliation | 1013 | + + + | Race | Unknown | + + + | Ethnic Group | Unknown | + + + Author + + + | Author | [facility] | | | and [place] | + + + | Organization | [facility] | | | and [...] Team Providers + +------+ + | Care Slot Key Person Name | Role | Phone | + [...] Description | +--------+--------+ + + + | 10/24/ | Refill | [facility] | Emmanuel Daniel MD | Medication Refill | | 2019 | | GASTROENTEROLOGY | [address], [place] | | | | | [address] [place] | [address] [place], [place] | | | | | [address] [place], [place] | [address] | | | | | [address] | | | | | | [phone] | | | +--------+--------+ + + + [...] Procedure | Cardiology | | | | 2020 | visit | | | | +--------+ + + + + | 10/30/ | Office | Cardiology | [place], | | | 2019 | Visit | | [facility] [place] [address] | | | | | | [place], | | | | | | [place] [address] | | | | | | [phone] | | | | | | | | +--------+ + + + + documented as of this encounter Visit Diagnoses Not on filedocumented in this encounter"
--- OUTSIDE RECORDS SUMMARY | ~2020-06-07 | XMS | Encounter Summary ---
Demographics + + + | Address | [address] | | | [place] [address] | + + + | Home Phone | | + + + | Preferred Language | Unknown | + + + | Marital Status | | + + + | Sikhism Affiliation | 1013 | + + + | Race | Unknown | + + + | Ethnic Group | Unknown | + + + Author + + + | Author | [facility] | | | and [place] | + + + | Organization | [facility] | | | [...] Team Providers + +------+ + | Care Protective Signal Installer Helper Name | Role | Phone | + +------+ + | Michael Amanda DO | PCP | | + +------+ + Encounter Details +--------+ + + + + | Date | Type | Department | Care Team | Description | +--------+ + + + + | 08/30/ | Abstract | [facility] | Geri Angel, | | | 2012 | | CARDIOLOGY [address] | CHIEF RESOURCE OFFICER [address] | | | | | [address] [place], | [place] | | | | | [place] [address] | [address] | | | | | [phone] | | | +--------+ + + + [...] [address] | | | | | | [address] [place], | | | | | | [place] [address] | | | | | | [phone] | | | | | | | | +--------+ + + + + documented as of this encounter Procedures + +--------+ + + + | Procedure Name | Priori | Date/Time | Associated Diagnosis | Comments | | | ty | | | | + +--------+ + + + | EXTERNAL LAB: | Routin | 08/08/2013 | | Results for this | | PROTIME INR | e | | | procedure are in the | | | | | | results section. | + +--------+ + + + | EXTERNAL LAB: AST | Routin | 08/08/2013 | | Results for this | | | e | | | procedure are in the | | | | | | results section. | + +--------+ + + + | EXTERNAL LAB: ALT | Routin | 08/08/2013 | | Results for this | | | e | | | procedure are in the | | | | | | results section. | + +--------+ + + + | EXTERNAL LAB: TSH | Routin | 08/08/2013 | | Results for this | | | e | | | procedure are in the | | | | | | results section. | + +--------+ + + + | EXTERNAL LAB: | Routin | 08/08/2013 | | Results for this | | TRIGLYCERIDES | e | | | procedure are in the | | | | | | results section. | + +--------+ + + + | EXTERNAL LAB: | Routin | 08/08/2013 | | Results for this | | CHOLESTEROL, HDL | e | | | procedure are in the | | | | | | results section. | + +--------+ + + + | EXTERNAL LAB: | Routin | 08/08/2013 | | Results for this | | CHOLESTEROL, TOTAL | e | | | procedure are in the | | | | | | results section. | + +--------+ + + + | EXTERNAL LAB: | Routin | 08/08/2013 | | Results for this | | CHOLESTEROL, LDL | e | | | procedure are in the | | | | | | results section. | + +--------+ + + + | EXTERNAL LAB: EGFR | Routin | 08/08/2013 | | Results for this | | | e | | | procedure are in the | | | | | | results section. | + +--------+ + + + | EXTERNAL LAB: | Routin | 08/08/2013 | | Results for this | | CREATININE | e | | | procedure are in the | | | | | | results section. | + +--------+ + + + | LIPID PANEL | Routin | 08/08/2013 | | Results for this | | | e | | | procedure are in the | | | | | | results section. | + +--------+ + + + | COMPREHENSIVE | Routin | 08/08/2013 | | Results for this | | METABOLIC PANEL | e | | | procedure are in the | | | | | | results section. | + +--------+ + + + documented in this encounter Results Lipid Panel (08/08/2013) + +-------+ + + + | Component | Value | Ref Range | Performed | Pathologist | | | | | At | Signature | + +-------+ + + + | Chol/HDL | 3.1 | | | | | Ratio | | | | | + +-------+ + + + + + | Specimen | + + | Blood specimen | | (specimen) | + + Comprehensive Metabolic Panel (08/08/2013) + +-------+ + + + | Component | Value | Ref Range | Performed | Pathologist | | | | | At | Signature | + +-------+ + + + | Na | 151 | mmol/L | [facility] | | | | | | [facility] | | | [facility] | | [facility] | | | | | | [facility] | | + +-------+ + + + | K | 4.4 | mmol/L | [facility] | | | | | [facility] | | [facility] | | | [facility] | | | | [facility] - | | | | | | [facility]ORY | | + +-------+ + + + | Chloride | 115 | | [facility] | | | | | [facility] | [facility] | [facility] | [facility] | | | | [facility] - | | | | | | [facility]ATORY | | + +-------+ + + + | CO2 | 29 | mmol/L | [facility] | | | | | [facility] | | | | | | [facility] | | | | [facility] - | | | | | | [facility]ORY | | + +-------+ + + + | Anion Gap | 11 | mmol/L | [facility] | | | | | | [facility] | | | | | | [facility] | | | | [facility] - | | | | | | [facility]ORY | | + +-------+ + + + | Glucose | 80 | mg/dL | [facility] | | | | | [facility] | | | | | | [facility] | | | | | [facility] - | | | | | | LAB[facility]ATORY | | + +-------+ + + + | BUN | 15 | mg/dL | [facility] | | | | | [facility] | | | | | | [facility] | | | | | [facility] - | | | | | | [facility]ORY | | + +-------+ + + + | Bun/Creatin | 16.1 | | [facility] | | | ine | | | [facility] | | | | | | [facility] | | | | | | [facility] - | | | | | | LAB[facility]ATORY | | + +-------+ + + + | Calcium | 9.1 | mg/dL | [facility] | | | | | [facility] | | | | | | [facility] | | | | [facility] - | | | | | | [facility]ATORY | | + +-------+ + + + | Alkaline | 63 | 35 - 115 U/L | [facility] | | | Phosphatase | | | [facility] | | | | | | [facility] | | | | | | [facility] - | | | | | | LABORATORY | | + +-------+ + + + | Bilirubin | 0.5 | 0.1 - 1.5 mg/dL | [facility] | | | Total | | | [facility] | | | | | | [facility] | | | | | | [facility] - | | | | | | LABORATORY | | + +-------+ + + + | Total | 6.3 | 6.1 - 8.4 g/dL | [facility] | | | Protein | | | [facility] | | | | | | [facility] | | | | | | [facility] - | | | | | | LABORATORY | | + +-------+ + + + | Albumin | 4.3 | 3.5 - 5.0 g/dL | [facility] | | | | | | [facility] | | | | | | [facility] | | | | | [facility] - | | | | | | LAB[facility]ATORY | | + +-------+ + + + | Globulin | 2.0 | | [facility] | | | | | | [facility] | | | | | | [facility] | | | | | [facility] - | | | | | | LABORATORY | | + +-------+ + + + | Albumin/Sandee | 2.2 | | [facility] | | | bulin [...] + | [facility] | [address] | [place] | | | [facility] | | [address] | | | - LABORATORY | | | | + + + + + External Lab: Ejime INR (08/08/2013) + +-------+ + + + | Component | Value | Ref Range | Performed | Pathologist | | | | | At | Signature | + +-------+ + + + | INR, | 0.134 | 0 - 4 | EXTERNAL | | | External | | | LAB | | + +-------+ + + + + + | Specimen | + + | Blood specimen | | (specimen) | + + + + | Resulting Agency Comment | + + | [facility] | + + + +---------+ + + | Performing | Address | City/State/Zipcode | Phone Number | | Organization | | | | + +---------+ + + | EXTERNAL LAB | | | | + +---------+ + + External Lab: AST (08/08/2013) + +-------+ + + + | Component | Value | Ref Range | Performed | Pathologist | | | | | At | Signature | + +-------+ + + + | AST, | 23 | 0 - 40 | EXTERNAL | | | External | | | LAB | | + +-------+ + + + + + | Specimen | + + | Blood specimen | | (specimen) | + + + + | Resulting Agency Comment | + + | [facility] | + + + +---------+ + + | Performing | Address | City/State/Zipcode | Phone Number | | Organization | | | | + +---------+ + + | EXTERNAL LAB | | | | + +---------+ + + External Lab: ALT (08/08/2013) + +-------+ + + + | Component | Value | Ref Range | Performed | Pathologist | | | | | At | Signature | + +-------+ + + + | ALT, | 24 | 0 - 46 | EXTERNAL | | | External | | | LAB | | + +-------+ + + + + + | Specimen | + + | Blood specimen | | (specimen) | + + + + | Resulting Agency Comment | + + | [facility] | + + + +---------+ + + | Performing | Address | City/State/Zipcode | Phone Number | | Organization | | | | + +---------+ + + | EXTERNAL LAB | | | | + +---------+ + + External Lab: TSH (08/08/2013) + + + + + + | Component | Value | Ref Range | Performed | Pathologist | | | | | At | Signature | + + + + + + | TSH, | 6.10 (A) | 0.27 - 4.2 | EXTERNAL | | | External | | | LAB | | + + + + + + + + | Specimen | + + | Blood specimen | | (specimen) | + + + + | Resulting Agency Comment | + + | [facility] | + + + +---------+ + + | Performing | Address | City/State/Zipcode | Phone Number | | Organization | | | | + +---------+ + + | EXTERNAL LAB | | | | + +---------+ + + External Lab: Triglycerides (08/08/2013) + +-------+ + + + | Component | Value | Ref Range | Performed | Pathologist | | | | | At | Signature | + +-------+ + + + | Triglycerid | 63 | 30 - 150 | EXTERNAL | | | es, | | | LAB | | | External | | | | | + +-------+ + + + + + | Specimen | + + | Blood specimen | | (specimen) | + + + + | Resulting Agency Comment | + + | [facility] | + + + +---------+ + + | Performing | Address | City/State/Zipcode | Phone Number | | Organization | | | | + +---------+ + + | EXTERNAL LAB | | | | + +---------+ + + External Lab: Cholesterol, HDL (08/08/2013) + + + + + + | Component | Value | Ref Range | Performed | Pathologist | | | | | At | Signature | + + + + + + | HDL | 51.0 (A) | 40 | EXTERNAL | | | Cholesterol | | | LAB | | | , External | | | | | + + + + + + + + | Specimen | + + | Blood specimen | | (specimen) | + + + + | Resulting Agency Comment | + + | [facility] | + + + +---------+ + + | Performing | Address | City/State/Zipcode | Phone Number | | Organization | | | | + +---------+ + + | EXTERNAL LAB | | | | + +---------+ + + External Lab: Cholesterol, Total (08/08/2013) + +-------+ + + + | Component | Value | Ref Range | Performed | Pathologist | | | | | At | Signature | + +-------+ + + + | Cholesterol | 160 | 200 | EXTERNAL | | | , Total, | | | LAB | | | External | | | | | + +-------+ + + + + + | Specimen | + + | Blood specimen | | (specimen) | + + + + | Resulting Agency Comment | + + | [facility] | + + + +---------+ + + | Performing | Address | City/State/Zipcode | Phone Number | | Organization | | | | + +---------+ + + | EXTERNAL LAB | | | | + +---------+ + + External Lab: Cholesterol, LDL (08/08/2013) + +-------+ + + + | Component | Value | Ref Range | Performed | Pathologist | | | | | At | Signature | + +-------+ + + + | LDL | 96 | 100 | EXTERNAL | | | Cholesterol | | | LAB | | | , Direct, | | | | | | External | | | | | + +-------+ + + + + + | Specimen | + + | Blood specimen | | (specimen) | + + + + | Resulting Agency Comment | + + | [facility] | + + + +---------+ + + | Performing | Address | City/State/Zipcode | Phone Number | | Organization | | | | + +---------+ + + | EXTERNAL LAB | | | | + +---------+ + + External Lab: eGFR (08/08/2013) + +-------+ + + + | Component | Value | Ref Range | Performed | Pathologist | | | | | At | Signature | + +-------+ + + + | eGFR, | >60 | 60 | EXTERNAL | | | External | | | LAB | | + +-------+ + + + | eGFR, | | | EXTERNAL | | | | | | LAB | | | Cypriot, | | | | | | External | | | | | + +-------+ + + + + + | Specimen | + + | Blood specimen | | (specimen) | + + + + | Resulting Agency Comment | + + | [facility] | + + + +---------+ + + | Performing | Address | City/State/Zipcode | Phone Number | | Organization | | | | + +---------+ + + | EXTERNAL LAB | | | | + +---------+ + + External Lab: Creatinine (08/08/2013) + +-------+ + + + | Component | Value | Ref Range | Performed | Pathologist | | | | | At | Signature | + +-------+ + + + | Creatinine, | 0.93 | 0.5 - 1.5 | EXTERNAL | | | External | | | LAB | | + +-------+ + + + + + | Specimen | + + | Blood specimen | | (specimen) | + + + + | Resulting Agency Comment | + + | [facility] | + + + +---------+ + + | Performing | Address | City/State/Zipcode | Phone Number | | Organization | | | | + +---------+ + + | EXTERNAL LAB | | | | + +---------+ + + documented in this encounter Visit Diagnoses Not on filedocumented in this encounter"
--- OUTSIDE RECORDS SUMMARY | ~2020-06-07 | XMS | Encounter Summary ---
Demographics + + + | Address | [address] | | | [place] [address] | + + + | Home Phone | | + + + | Preferred Language | Unknown | + + + | Marital Status | | + + + | Denominational Affiliation | 1013 | + + + | Race | Unknown | + + + | Ethnic Group | Unknown | + + + Author + + + | Author | [facility] | | | and [place] | + + + | Organization | [facility] | [...] Team Providers + +------+ + | Care Licensed Audiologist Name | Role | Phone | + +------+ + PCP | Unavailable | + +------+ + Encounter Details +--------+ + + + + | Date | Type | Department | Care Team | Description | +--------+ + + + + | 04/23/ | Hospital | [facility] | | | | 2007 - | Encounter | MED CTR MED ONC | | | | | | [address] [place] | | | | 04/24/ | | [place] [address] | | | | 2007 | | [phone] | | | +--------+ + + + [...] | | | | | | [place] [address] | | | | | | [phone] | | | | | | | | +--------+ + + + + documented as of this encounter Visit Diagnoses Not on filedocumented in this encounter"
--- OUTSIDE RECORDS SUMMARY | ~2020-06-07 | XMS | Encounter Summary ---
Demographics + + + | Address | [address] | | | [place] [address] | + + + | Home Phone [...] Team Providers + +------+ + | Care Internetworking Technician Name | Role | Phone | + +------+ + | Michael Amanda DO | PCP | | + +------+ + Encounter Details +--------+ + + + + | Date | Type | Department | Care Team | Description | +--------+ + + + + | 05/11/ | Hospital | [facility] | Conversion | Lumbago; | | 2013 | Encounter | [facility] | Transaction, | Postlaminectomy | | | | CLINICAL DECISION | Provider Unknown | syndrome, cervical | | | | [address] | | region; Cervicalgia | | | | [place], [place] | (Fax) | | | | | [address] | Cesar, | | | | | [phone] | MD Gamaliel | | +--------+ + [...] + + + +---------+ + + | [place]-3 Fatty | CAPS, one capsule by | [...] (none) Author Type: Registered Nurse Filed: 05/11/14 1508 Date of Service: 05/11/141504 Status: Signed Supervisor Of Officials: Meliza Macario RN (Registered Nurse) Pt discharged home, discharge instructions were reviewed, prescriptions provided, and quest ions answered. IV discontinued- gauze and tape applied to site. onver fatemeh Transaction, Provider Unknown - 05/11/2014 2:23 PM PDT Nurse Progress Note by Heike Mckeon RN at 05/11/14 1422 Author: Heike Mckeon RN Service: (none) Author Type: Registered Nurse Filed: 05/11/14 1424 Date of Service: 05/11/141422 Status: Signed Supervisor Of Officials: Heiek Mckeon RN (Registered Nurse) Called doctor Tanya [...] | Procedure | Cardiology | | | 2019 | visit | | | | +--------+ + + + + | 10/30/ | Office | Cardiology | Silvia, | | | 2019 | Visit | | PARISA [place] [address] | | | | | | [place], | | | | | | [place] [address] | | | | | | [phone] | | | | | | | [...] | | | intrathecal use. See the media relations associate examination for details of the | | | injection. Bone algorithm noncontrast technique with reformatted | | | sagittal and coronal images. Prior study for review : CT discogram | | | from 2004 was used to orient this examination given the transitional | | | anatomy of the lumbosacral junction FINDINGS: [place]st[place] is notable | | | for a [...] Note | + + | Kalpesh Brown Conversion - 07/07/2019 10:30 PM PDT HISTORY: 54 year-old male, postsurgical | | pain syndrome TECHNIQUE: 1. CT evaluation of the cervical thoracic and lumbar spine | | after the administration of approved dose of contrast to prove for intrathecal use. See | | the media relations associate examination for details of the injection. Bone algorithm noncontrast | | technique with reformatted sagittal and coronal images. Prior study for review : CT | | discogram from 2004 was used to orient this examination given the transitional anatomy | | of the lumbosacral junction FINDINGS: [place]about is notable for a pacing system. Anterior [...]
--- OUTSIDE RECORDS SUMMARY | ~2020-06-07 | XMS | Encounter Summary ---
Demographics + + + | Address | [address] | | | [place] [address] | + + + | Home Phone | | + + + | Preferred Language | Unknown | + + + | Marital Status | | + + + | Samaritan Affiliation | 1013 | + + + [...] Phone | + + +---------+ + | aNdine Kingsley | ECON | Unknown | | + + +---------+ + Care Team Providers + +------+ + | Care Brush Machine Setter Name | Role | Phone | + +------+ + PCP | Unavailable | + +------+ + Encounter Details +--------+ + + + + | Date | Type | Department | Care Team | Description | +--------+ + + + + | 02/28/ | [facility] | [facility] | Geri Angel, | | | 2011 | Encounter | MED CTR XRAY [address] | MEDICAL BILLING ASSOCIATE [address] | | | | | [place] | [place] [place] | | | | | [place] [address] | [id number] | | | | | [phone] | | | +--------+ + + + [...] | | | | | | [place] [address] | | | | | | [phone] | | | | | | | [...] Performed At | + + + | [facility] Diagnostic Imaging Department | [place] | | [address] [place] | [employer] | | LEFT HEART CATHETERIZATION | [facility] | | REPORT 02/29/2012 HEMODYNAMICS: Aortic pressure [...] was taken to | | | Cardiac Final Coat Sprayer. He was prepared and draped in the usual fashion | | | under a sterile technique and local anesthesia, percutaneous access | | | was obtained using #6- Salvadorean sheath in the right femoral artery. | | | Right heart cath was not performed in this patient. Left | | | ventriculography was performed using #6-Salvadorean pigtail catheter. | | | The selective coronary angiography were then performed in several | | | sagittal and oblique projection using the 6-Salvadorean JL 4 and #6 Salvadorean | | | 3DRC diagnostic catheters. The [...] Transcribed | | | Date/Time: 02/29/2012 09:09 Topper Press Operator Automatic: | | | <Electronically Signed by Daljit Singletary MD [facility]> 02/29/12 | | | 1002 | | + + + + + | Procedure Note | + + | Kalpesh Brown Conversion - 12/29/2013 5:04 PM [facility] | | Diagnostic Imaging Department | | [address], [place] | | | | | | | [...] patient was taken to Cardiac | | Final Coat Sprayer. He was prepared and draped in the usual fashion under a sterile | | technique and local anesthesia, percutaneous access was obtained using #6- | | Salvadorean sheath in the right femoral artery. Right heart cath was not performed | | in this patient. Left ventriculography was performed using #6-Salvadorean pigtail | | catheter. The selective coronary angiography were then performed in several | | sagittal and oblique projection using the 6-Salvadorean JL 4 and #6 Salvadorean 3DRC | | diagnostic catheters. The patient [...] | Transcribed Date/Time: 02/29/2012 09:09 | | Topper Press Operator Automatic: | | <Electronically Signed by Daljit Singletary MD [facility]> 02/29/12 1002 | + + + +---------+ + + | Performing | Address | City/State/Zipcode | Phone Number | | Organization | | | | + +---------+ + + | [place] | | | | | [facility] | | | | + +---------+ + + documented in this encounter Visit Diagnoses Not on filedocumented in this encounter"
--- OUTSIDE RECORDS SUMMARY | ~2020-06-07 | XMS | Encounter Summary ---
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 mortality) and benefits of performing further work up, and though offered, still refuses. He would like to be discharged at this time, he declines signing AMA paperwork. He is discharged in good stable condition. Last Set of Vital Signs: Temp: 36.5 C (97.7 F) Pulse: 71 Resp: 16 SpO2: 96 % BP: (!) 13 FINAL IMPRESSION ICD-10-CM ICD-9-CM 1. Chest pain, unspecified type R07.9 786.50 Follow-up Information Kirk French MD. Specialty: Internal Medicine Contact information: [address] [address] Daljit Singletary MD. Call today. Specialty: Cardiology Contact information: [address] [facility] [address] Discharge Medication List as of 06/20/2018 21:55 Portions of this chart were created with [employer] voice recognition software. Inadvertent so und alike substitutions may be present and are unintentional Franki Pham MD 06/20/182224 documented i n this encounter Plan of Treatment +--------+ + [...] [address] | | | | | | [place], | | | | | | [place] [address] | | | | | | [phone] | | | | | | | | +--------+ + + + + + +------+--------+ + + | Name | Type | Priori | Associated Diagnoses | Date/Time | | | | ty | | | + +------+--------+ + + | ED INFORMATION | BRUNILDA | Routin | | 06/20/2018 6:53 PM | | EXCHANGE | | e | | PDT | + +------+--------+ + + + + +--------+ + + | Name | Type | Priori | Associated Diagnoses | Order Schedule | | | | ty | | | + + +--------+ + + | Cardiology, External | Outpatient | Routin | Chest pain, | Ordered: 06/20/2018 | | - AMB Referral | Referral | e | unspecified type | | + + +--------+ + + documented as of this encounter Procedures + +--------+ + + + | Procedure Name | Priori | Date/Time | Associated Diagnosis | Comments | | | ty | | | | + +--------+ + + + | ECG 12 LEAD | STAT | 06/20/2018 | | Results for this | | | | 9:07 PM | | procedure are in the | | | | PDT | | results section. | + +--------+ + + + | TROPONIN I | STAT | 06/20/2018 | | Results for this | | | | 9:02 PM | | procedure are in the | | | | PDT | | results section. | + +--------+ + + + | XR CHEST AP PORTABLE | STAT | 06/20/2018 | | Results for this | | | | 7:47 PM | | procedure are in the | | | | PDT | | results section. | + +--------+ + + + | TROPONIN I | STAT | 06/20/2018 | | Results for this | | | | 7:23 PM | | procedure are in the | | | | PDT | | results section. | + +--------+ + + + | CBC WITH | STAT | 06/20/2018 | | Results for this | | DIFFERENTIAL | | 7:23 PM | | procedure are in the | | | | PDT | | results section. | + +--------+ + + + | B TYPE NATRIURETIC | STAT | 06/20/2018 | | Results for this | | PEPTIDE | | 7:23 PM | | procedure are in the | | | | PDT | | results section. | + +--------+ + + + | COMPREHENSIVE | STAT | 06/20/2018 | | Results for this | | METABOLIC PANEL | | 7:23 PM | | procedure are in the | | | | PDT | | results section. | + +--------+ + + + | ECG 12 LEAD | STAT | 06/20/2018 | | Results for this | | | | 6:59 PM | | procedure are in the | | | | PDT | | results section. | + +--------+ + + + | ED INFORMATION | Routin | 06/20/2018 | | | | EXCHANGE | e | 6:53 PM | | | | | | PDT | | | + +--------+ + + + +---+--------+ | | | | | Proced | | | ure | | | Note - | | | Eneida, | | | Lab In | | | | | | Hlseve | | | n - | | | | | | 2017 | | | 6:54 | | | PM PDT | | | | | | [...] | | | 8 | | | 18:50? | | | HODGEN | | | , | | | FREDER | | | ICK | | | W?MRN: | | | | | | [id number] | | | [id number] | | | his | | | [...] | | | ent/60 | | | [id number] | | | [phone] | | | [...] | | | CP/SOB | | | May | | | [...] | | | Center | | | 3 0 | | [facility] | | | al 6 0 | | | Total | | | 11 0 | | | Note: | | [...] | | | ext. | | | [id number] | | | or go | | [...] | | | M.D. | | | Vamper | | | al | | | [...] | +---+--------+ documented in this encounter Results ECG 12 lead (06/20/2018 9:07 PM PDT) + + + + + [...] + + + + | P-R | 226 | ms | [facility] | | | INTERVAL | | | | | + + + + + + | QRS | 104 | ms | [facility] | | | DURATION | | | | | + + + + + + | Q-T | 396 | ms | [facility] | | | INTERVAL | | | | | + + + + + + | Q-T | 427 | ms | [facility] | | | INTERVAL | | | | | | (CORRECTED) | | | | | + + + + + + | P WAVE AXIS | 10 | degrees | [facility] | | [...] 20-JUN-2018 | | | | | | 18:59, (Unconfirmed)No | | | | | | significant change was | | | | | | foundConfirmed by | | | | | | ANGELA MARADIAGA MD ([id number]) | | | | | | on 06/21/2018 7:02:57 AM | | | | + + + [...] | + +---------+ + + Troponin I (06/20/2018 9:02 PM PDT) + + + + + [...] | | | | | | [employer] | | | | | [...] + + + + + | [facility] | [address] | [place] | [phone] | | [facility] | | [address] | | | - LABORATORY | | | | + + + + + XR Chest AP Portable (06/20/2018 7:47 PM PDT) + + | Specimen | + + | | + + + + + | Narrative | Performed At | + + + | EXAM: XR CHEST AP PORTABLE dated 06/20/2018 7:47 PM HISTORY: | [facility] | | assess for infection. Comparison: February 01, 2018 TECHNIQUE: A | | | single portable view of the chest. FINDINGS: The lungs are | | | symmetrically aerated. They are clear. There are no large pleural | | | effusions. There is no pneumothorax. The cardiac and mediastinal | | | contours are not enlarged. Atrial and ventricular leads from an | | | implanted device on left chest are stable. No acute osseous | | | abnormalities. Fusion related changes in the cervical spine. | | | IMPRESSION - No radiographic evidence for acute disease in the | | | chest. Dictated and Signed by: Emmanuel Gibbons MD | | | Electronically signed: 06/20/2018 7:51 PM | | + + + + + | Procedure Note | + + | Eneida, Rad Results In - 06/20/2018 7:54 PM PDT EXAM: XR CHEST AP PORTABLE dated | | 06/20/2018 7:47 PMHISTORY: assess for infection.Comparison: February 01, 2018TECHNIQUE: A | | single portable view of the chest.FINDINGS:The lungs are symmetrically aerated. They | | are clear. There are no largepleural effusions. There is no pneumothorax. The cardiac | | and mediastinalcontours are not enlarged. Atrial and ventricular leads from an | | implanteddevice on left chest are stable. No acute osseous abnormalities. | | Fusionrelated changes in the cervical spine.IMPRESSION -No radiographic evidence for | | acute disease in the chest.Dictated and Signed by: Emmanuel Gibbons MD Electronically | | signed: 06/20/2018 7:51 PM | | | |The lungs are symmetrically aerated. They are clear. There are no large | |pleural effusions. There is no pneumothorax. The cardiac and mediastinal | |contours are not enlarged. Atrial and ventricular leads from an implanted | |device on left chest are stable. No acute osseous abnormalities. Fusion | |related changes in the cervical spine. | | | |IMPRESSION - | | | |No radiographic evidence for acute disease in the chest. | | | |Dictated and Signed by: Emmanuel Gibbons MD | | Electronically signed: 06/20/2018 7:51 PM | + + + +---------+ + + | Performing | Address | City/State/Zipcode | Phone Number | | Organization | | | | + +---------+ + + | [facility] | | | | + +---------+ + + B Type Natriuretic Peptide (06/20/2018 7:23 PM PDT) + +-------+ + + + | Component | Value | Ref Range | Performed | Pathologist | | | | | At | Signature | + +-------+ + + + | BNP | 82 | <100 pg/mL | [facility] | | [...] [address] | [place] | [phone] | | [facility] | | [address] | | | - LABORATORY | | | | + + + + + Troponin I (06/20/2018 7:23 PM PDT) + + + + + [...] | | | | | | [employer] | | | | | [...] [address] | [place] | [phone] | | [facility] | | [address] | | | - LABORATORY | | | | + + + + + Comprehensive Metabolic Panel (06/20/2018 7:23 PM PDT) + + + + + [...] + + + + | K | 3.5 | 3.5 - 5.1 | [facility] | | | | | mmol/L | [facility] | | | | | | MEDICAL | | | | | | CENTER - | | | | | | LABORATORY | | + + + + + + | Cl | 108 | 98 - 109 mmol/L | [facility] | | | | | | [facility] | | | | | [facility] | | | | | | CENTER - | | | | | | LABORATORY | | + + + + + + | CO2 | 23 (L) | 24 - 31 mmol/L | [...] + + + + | Glucose | 91 | 70 - 109 mg/dL | [facility] | | | | | | [facility] | | | | | | MEDICAL | | | | | | CENTER - | | | | | | LABORATORY | | + + + + + + | BUN | 19 (H) | 7 - 18 mg/dL | [facility] | | | | | | [facility] | | | | | | [facility]ICAL | | | | | | CENTER - | | | | | | LABORATORY | | + + + + + + | Creatinine | 1.04 | 0.60 - 1.30 | [facility] | | | | | mg/dL | [facility] | | | | | | MEDICAL | | | | | | CENTER - | | | | | | LABORATORY | | + + + + + + | eGFR if not | >60Comment: GLOMERULAR | >=60 | [facility] | | | | FILTRATION | mL/min/1.73m2 | [facility] | | | ICELANDIC | RATE,ESTIMATED | | MEDICAL | | | | mL/min/1.09i5Czcd than | | CENTER - | | [...] + + + + | Calcium | 9.3 | 8.3 - 10.5 | [facility] | | | | | mg/dL | [facility] | | | | | | MEDICAL | | | | | | CENTER - | | | | | | LABORATORY | | + + + + + + | Albumin | 4.2 | 3.2 - 5.0 g/dL | [facility] | | | | | | [facility] | | | | | | MEDICAL | | | | | | CENTER - | | | | | | LABORATORY | | + + + + + + | Bilirubin | 0.7 | 0.1 - 1.5 mg/dL | [facility] | | | Total | | | [facility] | | [...] + + + + | AST | 32 | 10 - 42 U/L | [facility] | | | | | | [facility] | | | | | | MEDICAL | | | | | | CENTER - | | | | | | LABORATORY | | + + + + + + | ALT | 27 | 6 - 45 U/L | [facility] [...] | | Phosphatase | | | [facility] | | | | | | MEDICAL | | | | | | CENTER - | | | | | | LABORATORY | | + + + + + + | Globulin | 2.4 | 2.1 - 3.8 g/dL | [facility] | | | | | | [facility] | | | | | | MEDICAL | | | | | | CENTER - | | | | | | LABORATORY | | + + + + + + | Albumin/Sandee | 1.8 | 0.8 - 2.0 | [facility] | | | bulin Ratio | | | [facility] | | | | | | MEDICAL | | | | | | CENTER - | | | | | | LABORATORY | | + + + + + + | BUN/Creatin | 18.3 | | [facility] | | | ine [...] [address] | [place] | [phone] | | [facility] | | [address] | | | - LABORATORY | | | | + + + + + CBC with Differential (06/20/2018 7:23 PM PDT) + +---------+ + + + | Component | Value | Ref Range | Performed | Pathologist | | | | | At | Signature | + +---------+ + + + | White Blood | 7.1 | 4.0 - 11.0 K/uL | [facility] | | | Cells | | | [facility] | | | | | | MEDICAL | | | | | | CENTER - | | | | | | LABORATORY | | + +---------+ + + + | Red Blood | 4.84 | 4.30 - 5.70 | [facility] | | | Cells | | M/uL | [facility] | | | | | | [facility] | | | | | | CENTER - | | | | | | LABORATORY | | + +---------+ + + + | Hemoglobin | 16.9 | 13.5 - 18.0 | [facility] | | | | | g/dL | [facility] | | | | | | MEDICAL | | | | | | CENTER - | | | | | | LABORATORY | | + +---------+ + + + | Hematocrit | 48.5 | 40.0 - 51.0 % | [facility] | | | | | | [facility] | | | | | | MEDICAL | | | | | | CENTER - | | | | | | LABORATORY | | + +---------+ + + + | MCV | 100.2 | 83.0 - 101.0 fL | [facility] | | | | | | [facility] | | | [facility] | | MEDICAL | | | | | | CENTER - | | | | | | LABORATORY | | + +---------+ + + + | MCH | 34.8 | 28.0 - 35.0 pg | [facility] | | | | | | [facility] | | | | | | [facility] | | | | | | CENTER - | | | | | | LABORATORY | | + +---------+ + + + | MCHC | 34.8 | 32.0 - 36.0 | [facility] | | | | | g/dL | [facility] | | | | | | MEDICAL | | | | | | CENTER - | | | | | | LABORATORY | | + +---------+ + + + | RDW-CV | 12.8 | <15.0 % | [facility] | | | | | | [facility] | | | | | | [facility] | | | | | | CENTER - | | | | | | LABORATORY | | + +---------+ + + + | Platelet | 135 (L) | 140 - 440 K/uL | [facility] | | | Count | | | [facility] | | | | | | MEDICAL | | | | | | CENTER - | | | | | | LABORATORY | | + +---------+ + + + | MPV | 10.3 | fL | [facility] | | | | | | [facility] | | | | | | MEDICAL | | | | | | CENTER - | | | | | | LABORATORY | | + +---------+ + + + | % | 59.0 | 45.0 - 82.0 % | [facility] | | | Neutrophils | | | [facility] | | | | | | MEDICAL | | | | | | CENTER - | | | | | | LABORATORY | | + +---------+ + + + | % | 29.9 | 20.0 - 45.0 % | [facility] | | | Lymphocytes | | | [facility] | | | | | | MEDICAL | | | | | | CENTER - | | | | | | LABORATORY | | + +---------+ + + + | % Monocytes | 8.7 | 4.0 - 12.0 % | [facility] | | | | | | [facility] | | | | | | [facility] | | | | | | CENTER - | | | | | | LABORATORY | | + +---------+ + + + | % | 1.5 | 0.0 - 5.0 % | [facility] | | | Eosinophils | | | [facility] | | | | | | MEDICAL | | | | | | CENTER - | | | | | | LABORATORY | | + +---------+ + + + | % Basophils | 0.9 | 0.0 - 1.0 % | [facility] | | | | | | [facility] | | | | | | MEDICAL | | | | | | CENTER - | | | | | | LABORATORY | | + +---------+ + + + | Absolute | 4.20 | 1.80 - 8.50 | [facility] | | | Neutrophils | | K/uL | [facility] | | | | | | MEDICAL | | | | | | CENTER - | | | | | | LABORATORY | | + +---------+ + + + | Absolute | 2.10 | 0.60 - 3.20 | [facility] | | | Lymphocytes | | K/uL | [facility] | | | | | | MEDICAL | | | | | | CENTER - | | | | | | LABORATORY | | + +---------+ + + + | Absolute | 0.60 | 0.00 - 1.00 | [facility] | | | Monocytes | | K/uL | [facility] | | | | | | MEDICAL | | | | | | CENTER - | | | | | | LABORATORY | | + +---------+ + + + | Absolute | 0.10 | 0.00 - 0.40 | [facility] | | | Eosinophils | | K/uL | [facility] | | | | | | MEDICAL | | | | | | CENTER - | | | | | | LABORATORY | | + +---------+ + + + | Absolute | 0.10 [...] + | [facility] | [address] | [place] | [phone] | | [facility] | | [address] | | | - LABORATORY | | | | + + + + + ECG 12 lead (06/20/2018 6:59 PM PDT) + + + + + [...] + + + + | P-R | 210 | ms | [facility] | | [...] + + + + | Q-T | 422 | ms | [facility] | | | INTERVAL | | | | | | (CORRECTED) | | | | | + + + + + + | P WAVE AXIS | 6 | degrees | [facility] | | + + + + + + | QRS AXIS | 31 | degrees | [facility] | | + + + + + + | T AXIS | 17 | degrees | [facility] | | + + + + + + | INTERPRETAT | Atrial-paced rhythm with | | [facility] | | | ION TEXT | prolonged AV | | | | | | conductionAbnormal | | | | | | ECGWhen compared with | | | | | | ECG of 05-JAN-2018 | | | | | | 08:06,No significant | | | | | | change was | | | | | | foundConfirmed by | | | | | | ANGELA MARADIAGA MD ([id number]) | | | | | | on 06/21/2018 7:02:49 AM | | | | + + + [...]
--- OUTSIDE RECORDS SUMMARY | ~2020-06-07 | XMS | Encounter Summary ---
Demographics + + + | Address | [id number] [place] [address] [address] | | | [place] [address] | + + + | Home Phone | | + + + | Preferred Language | Unknown | + + + | Marital Status | | + + + | Anabaptist Affiliation | Unknown | + + + | Race | White | + + + | Ethnic Group | Not or | + + + Author + + + | Author | [facility] | + + + | Organization | [facility] | + + + | Address | Unknown | + + + | Phone | Unavailable | + + + Support + + + + + | Name | Relationship | Address | Phone | + + + + + | Rachel Valencia | [address] | [place] | | | | | [address] | | + + + + + Care Team Providers + +------+ + | Care 4 H Youth Development Specialist Name | Role | Phone | + +------+ + | Darion Holden DO | PCP | | + +------+ + Reason for Referral Consultation (Urgent) + +--------+ + + + + | Status | Reason | Specialty | Diagnoses / | Referred By | Referred To | | | | | Procedures | Contact | Contact | + +--------+ + + + + | New Request | | Gastroenterol | Diagnoses | Blanca, | External | | | | ogy | | Bridgette Escobar MD | Order | | | | | Unintentiona | [address] | | | | | | l weight | Ave | | | | | | loss | [facility] [place] | | | | | | Abdominal | [address] | | | | | | cramping | Phone: | | | | | | Chronic | [phone] | | | | | | diarrhea | Fax: | | | | | | Rectal | [phone] | | | | | | bleeding | | | | | | | Procedures | | | | | | | CONSULT TO | | | | | | | GASTROENTERO | | | | | | | LOGY | | | + +--------+ + + + + Reason for Visit +--------+ + | Reason | Comments | +--------+ + | Other | | +--------+ + Encounter Details +--------+ + + + + | Date | Type | Department | Care Team | Description | +--------+ + + + + | 12/18/ | Telephone | [facility] | Bridgette Rios, | Other | | 2020 | | Center at [facility] [address] | MD [address] | | | | | [address] [place] | [facility] [place] | | | | | for Health and | [address] | | | | | Healing, [address] | [phone] | | | | | [facility] [place] | | | | | | [address] | | | | | | [phone] | | | +--------+ + + + [...] + | Diagnosis | + + | Unintentional weight loss - Primary Loss of weight | + + | Abdominal cramping Abdominal pain, unspecified site | + + | Chronic diarrhea Diarrhea | + + | Rectal bleeding Hemorrhage of rectum and anus | + + documented in this encounter"
--- OUTSIDE RECORDS SUMMARY | ~2020-06-07 | XMS | Encounter Summary ---
Demographics + + + | Address | [address] | | | [place] [address] | + + + | Home Phone [...] Team Providers + +------+ + | Care Area Representative Name | Role | Phone | [...] + + | 12/29/ | Office | [facility] | Silvia, | Ascending thoracic | | 2017 | Visit | CARDIOLOGY [address] | [address] [place] [address] | aortic aneurysm | | | | [place], | [place], | ([facility]) (Primary Dx); | | | | [place] [address] | [place] [address] | Coronary artery | | | | [phone] | [phone] | disease involving | | | | | | [place]-apache coronary | | | | | | artery of [place] | | | | | | heart [...] downloading device data was supervised by Sydni Singletary MD Underlying rhythm: Sinus Bradycardia between 47-62 [...] of non-critical coronary artery d isease involving [place] coronary artery of [place] heart without angina pectoris, essential h ypertension, [...] start Losartan 25 mg once every day, rosita blood pressure log, and follow up in 3 months. Since that time, he went to the ER in [facility] with chest pain at the end of [...] Preventative health care Coronary artery disease involving [place] coronary artery of [place] heart without angina pectoris Cannabis abuse, daily [...] by mouth every evening 90 tablet 3 [facility] Natural Products (OSTEO BI-FLEX/5-LOXIN ADVANCED PO) Take [...] 3RD DOSE, CALL 911 100 tablet 3 Cougar-3 Fatty Acids (SALMON OIL-1000 PO) CAPS, one [...] was found Confirmed by SYDNI SINGLETARY MD ([id number]) on 06/23/2016 2:08:15 PM LAB RESULTS reviewed during visit today primarily from [facility]: LIPID Lab Results Component Value Date [...] PLTEX 129* 05/12/2016 I reviewed records from [facility] for office visit on 09/01/2016 which is [...] He is in class I of the [place] [employer] functional class. On physical examination there are no signs of fl uid overload. 2. Non-critical Coronary artery disease involving [place] coronary a rtery of [place] heart without angina pectoris: A. Normal exercise [...] arrhythmia performed by Dr. Gambino at [facility] on 01/30/2013. Patient had spontaneous PVCs [...] to go back in 3 days to [place] for an attempt of ablation under general [...] is a normal stable device function. Estimated [employer] ng battery longevity is 5 years.. 5. Lightheadedness and dizziness/ presyncope: A. Episode of presyncope 05/28/10 evaluated in the emergency departmen t, thought to have vasovagal symptoms. 6. [...] this chart may have been created with [address] voice recognition software. Occasi onal wrong-word or [...] | | | | | | [place] [address] | | | | | | [phone] | | | | | | | | +--------+ + + + + documented as of this encounter Visit Diagnoses + + | Diagnosis | + + | Ascending thoracic aortic aneurysm (HCC) - Primary Thoracic aneurysm without mention | | of rupture | + + | Coronary artery disease involving [place]-apache coronary artery of [place]-apache heart without | | angina pectoris | + + | Essential hypertension with goal blood pressure less than 130/80 | + + | Hyperlipidemia, mixed Mixed hyperlipidemia | + + documented in this encounter
--- OUTSIDE RECORDS SUMMARY | ~2020-06-07 | XMS | Encounter Summary ---
Demographics + + + | Address | [address] | | | [place] [address] | + + + | Home Phone [...] Team Providers + +------+ + | Care Goggles Assembler Name | Role | Phone | + +------+ + PCP | Unavailable | + +------+ + Encounter Details +--------+ + + + + | Date | Type | Department | Care Team | Description | +--------+ + + + + | 01/14/ | Hospital | [facility] | Benji, | BACKACHE NOS | | 2004 | Encounter | [facility] [place] | MD [address] | | | | | CLINICAL DECISION | [place] | | | | | [address] | [place] [address] | | | | | [place], [place] | [phone] | | | | | [address] | | | | | | [phone] | | | +--------+ + + + [...] | | | | | | [place] [address] | | | | | | [phone] | | | | | | | | +--------+ + + + + documented as of this encounter Visit Diagnoses + + | Diagnosis | + + | Backache, unspecified | + + documented in this encounter"
--- OUTSIDE RECORDS SUMMARY | ~2020-06-07 | XMS | Encounter Summary ---
Demographics + + + | Address | [address] | | | [place] [address] | + + + | Home Phone | | + + + | Preferred Language | Unknown | + + + | Marital Status | | + + + | Anabaptist Affiliation | [id number] | + + + | Race | Unknown | + + + | Ethnic Group | Unknown | + + + Author + + + | Author | [facility] | | | and [place] | + + + | Organization | [facility] | | [...] Team Providers + +------+ + | Care Motor Polarizer Name | Role | Phone | + +------+ + | Kirk French MD | PCP | | + +------+ + Encounter Details +--------+ + + + + | Date | Type | Department | Care Team | Description | +--------+ + + + + | 10/25/ | Hospital | [facility] | Kirk French | Chronic pain | | 2017 | Encounter | MED CTR ULTRASOUND | MD Eva Guidry | disorder; Stomach | | | | [address] [place] | [address] | ache; Obesity, | | | | [place], [place] | [place] [address] | unspecified | | | | [address] | [phone] | classification, | | | | [phone] | | unspecified obesity | | | | | Vicki Donahue, | type, unspecified | | | | | Technologist | whether serious | | | | | | comorbidity present; | | | | | | Polycythemia, | | | | | | secondary; Cancer | | | | | | screening; Loss of | | | | | | weight | +--------+ + + + + Social [...] + + + +---------+ + + | [place] | CAPS, one capsule by | [...] | | | | | | [place] [address] | | | | | | [phone] | | | | | | | | +--------+ + + + + documented as of this encounter Procedures + +--------+ + + + | Procedure Name | Priori | Date/Time | Associated Diagnosis | Comments | | | ty | | | | + +--------+ + + + | US ABDOMEN COMPLETE | Routin | 10/25/2017 | Chronic pain | Results for this | | | e | 9:40 AM | disorder Stomach | procedure are in the | | | | PST | ache Obesity, | results section. | | | | | unspecified | | | | | | classification, | | | | | | unspecified obesity | | | | | | type, unspecified | | | | | | whether serious | | | | | | comorbidity present | | | | | | Polycythemia, | | | | | | secondary Cancer | | | | | | screening Loss of | | | | | | weight | | + +--------+ + + + documented in this encounter Results US Abdomen Complete (10/25/2017 9:40 AM PST) + + | Specimen | + + | | + + + + + | Narrative | Performed At | + + + | EXAM: US ABDOMEN COMPLETE dated 10/25/2017 8:30 AM HISTORY: | [facility] | | History of diarrhea. Weight loss. Screening for abdominal aortic | | | aneurysm. COMPARISON: Gallbladder ultrasound dated April 22, 2008 | | | FINDINGS: Liver: The liver is normal in size contour and | | | echogenicity. There is no intrahepatic biliary ductal dilatation. | | | Gallbladder and bile ducts: The gallbladder is not distended. | | | No cholelithiasis. No pericholecystic fluid. The sonographic | | | Webb's reportedly negative. The gallbladder wall measures 2 mm. | | | The common bile duct measures 4 mm. Pancreas: The pancreas as | | | visualized is unremarkable. Spleen: The spleen is unremarkable. | | | There is no splenomegaly. Kidneys: The right kidney as | | | visualized is unremarkable. There is no hydronephrosis. The right | | | kidney measures 11 cm longitudinally. The left kidney as visualized | | | is unremarkable. There is no hydronephrosis. The left kidney | | | measures 12 cm longitudinally. Vascular: There is flow | | | demonstrated in the sampled portions of the inferior vena cava, | | | hepatic veins, portal veins, and the splenic vein. Portal venous | | | flow is toward the liver. The aorta measures 2 cm proximally and | | | tapers distally to 1.7 cm. No visible ascites. IMPRESSION - | | | No evidence for abdominal aortic aneurysm. No evidence for | | | cholelithiasis or cholecystitis. No obstructive uropathy. | | | Dictated and Signed by: Emmanuel Gibbons MD Electronically signed: | | | 10/25/2017 2:58 PM | | + + + + + | Procedure Note | + + | Kevin, Rad Results In - 10/25/2017 3:01 PM PST EXAM: US ABDOMEN COMPLETE dated | | 10/25/2017 8:30 AMHISTORY: History of diarrhea. Weight loss. Screening for abdominal | | aorticaneurysm.COMPARISON: Gallbladder ultrasound dated April 22, 2008FINDINGS:Liver: The | | liver is normal in size contour and echogenicity. There is nointrahepatic biliary | | ductal dilatation. Gallbladder and bile ducts: The gallbladder is not distended. | | Nocholelithiasis. No pericholecystic fluid. The sonographic Webb's | | reportedlynegative. The gallbladder wall measures 2 mm. The common bile duct measures | | 4mm.Pancreas: The pancreas as visualized is unremarkable.Spleen: The spleen is | | unremarkable. There is no splenomegaly.Kidneys: The right kidney as visualized is | | unremarkable. There is nohydronephrosis. The right kidney measures 11 cm | | longitudinally. The left kidneyas visualized is unremarkable. There is no | | hydronephrosis. The left kidneymeasures 12 cm longitudinally.Vascular: There is flow | | demonstrated in the sampled portions of the inferiorvena cava, hepatic veins, portal | | veins, and the splenic vein. Portal venousflow is toward the liver. The aorta measures | | 2 cm proximally and tapersdistally to 1.7 cm.No visible ascites.IMPRESSION - No | | evidence for abdominal aortic aneurysm.No evidence for cholelithiasis or | | cholecystitis.No obstructive uropathy.Dictated and Signed by: Emmanuel Gibbons MD | | Electronically signed: 10/25/2017 2:58 PM | | | |Spleen: The spleen is unremarkable. There is no splenomegaly. | | | |Kidneys: The right kidney as visualized is unremarkable. There is no | |hydronephrosis. The right kidney measures 11 cm longitudinally. The left kidney | |as visualized is unremarkable. There is no hydronephrosis. The left kidney | |measures 12 cm longitudinally. | | | |Vascular: There is flow demonstrated in the sampled portions of the inferior | |vena cava, hepatic veins, portal veins, and the splenic vein. Portal venous | |flow is toward the liver. The aorta measures 2 cm proximally and tapers | |distally to 1.7 cm. | | | |No visible ascites. | | | |IMPRESSION - | | | |No evidence for abdominal aortic aneurysm. | | | |No evidence for cholelithiasis or cholecystitis. | | | |No obstructive uropathy. | | | |Dictated and Signed by: Emmanuel Gibbons MD | | Electronically signed: 10/25/2017 2:58 PM | + + + +---------+ + + | Performing | Address | City/State/Zipcode | Phone Number | | Organization | | | | + +---------+ + + | [facility] | | | | + +---------+ + + documented in this encounter Visit Diagnoses + + | Diagnosis | + + | Chronic pain disorder Chronic pain syndrome | + + | Stomach ache Dyspepsia and other specified disorders of function of stomach | + + | Obesity, unspecified classification, unspecified obesity type, unspecified whether | | serious comorbidity present | + + | Polycythemia, secondary | + + | Cancer screening Screening for unspecified malignant neoplasm | + + | Loss of weight | + + documented in this encounter"
--- OUTSIDE RECORDS SUMMARY | ~2020-06-07 | XMS | Encounter Summary ---
Demographics + + + | Address | [address] | | | [place] [address] | + + + | Home Phone [...] Team Providers + +------+ + | Care Remote Operations Producer Name | Role | Phone | + [...] + + | 05/21/ | Implant | [facility] [place] | Daljit Singletary, | Remote Device | | 2020 | Monitor | CARDIOLOGY [address] | MD [address] | Interrogation | | | | [place], | [place], | (Primary Dx); | | | | [place] [address] | [place] [address] | Pacemaker; | | | | [phone] | [phone] | Sinoatrial node | | | | [...] documented as of this encounter Procedure Notes Daljit Singletary MD - 05/21/2020 11:59 PM PDTAssociated Order(s): DEVICE INTERROGATION- R EMOTEProcedure(s): DEVICE INTERROGATION- REMOTEPre-Procedure Diagnose(s): Pacemaker reprogra mming/check; Pacemaker; Sinoatrial node dysfunction (HCC)Date of Remote Interrogation: 2019 Refer to [employer] documentation and remote PDF scanned into [employer] for remote interrogation re sults. Data collected by Shabana Lama RN Presenting rhythm: Sinus rhythm, atrial and ventricular sensed with rate 82-86 beats. 4 mode switch episodes accounting for <0.1% of the time. 1 ventricular high rate episode occurred 02/26/2020 at 10:07 PM for 3 seconds. EGM is consis tent with paroxysmal supraventricular tachycardia rate 180-190 beats. PVC singles 1,704 PVC singles 189/month PVC runs 39 PVC runs 4/month Histogram good. Battery longevity 9 months. Apparent normal and stable device function. Device nearing LINDA, remote monitoring changed f rom quarterly to monthly. Device interrogation due in office in March 2020. Left message for patient. documented in this encounter Plan of Treatment [...] | | | | | | [place] [address] | | | | | | [phone] | | | | | | | | +--------+ + + + + documented as of this encounter Procedures + +--------+ + + + | Procedure Name | Priori | Date/Time | Associated Diagnosis | Comments | | | ty | | | | + +--------+ + + + | DEVICE | Routin | 05/21/2020 | Remote Device | Results for this | | INTERROGATION- | e | 11:59 PM | Interrogation | procedure are in the | | REMOTE | | PDT | Pacemaker | results section. | | | | | Sinoatrial node | | | | | | dysfunction (HCC) | | | | | | with symptomatic | | | | | | bradycardia | | + +--------+ + + + documented in this encounter Results Device Interrogation - Remote (05/21/2020 11:59 PM PDT) + + + | Narrative | Performed At | + + + | [place] | [facility] | | MD Gemini 03/07/2020 1:15 PMDate of Remote Interrogation: | | | 03/07/2020 Refer to [facility] documentation and remote PDF scanned into | | | [facility] for remote interrogation results. Data collected by Shabana Robledo | | | MONROE Lama Presenting rhythm: Sinus rhythm, atrial and ventricular | | | sensed with rate 82-86 beats. 4 mode switch episodes accounting for | | | <0.1% of the time.1 ventricular high rate episode occurred 02/26/2020 at | | | 10:07 PM for 3 seconds. EGM is consistent with paroxysmal | | | supraventricular tachycardia rate 180-190 beats.PVC singles | | | 1,704 PVC singles 189/monthPVC runs 39 | | | PVC runs 4/monthHistogram good. Battery longevity 9 | | | months.Apparent normal and stable device function. Device nearing LINDA, | | | remote monitoring changed from quarterly to monthly. Device | | | interrogation due in office in March 2020.Left message for patient. | | |PVC runs 39 PVC runs 4/month | | |Histogram good. Battery longevity 9 months. | | |Apparent normal and stable device function. Device nearing LINDA, | | |remote monitoring changed from quarterly to monthly. | | |Device interrogation due in office in March 2020. | | |Left message for patient. | | | | | | | [...]
--- OUTSIDE RECORDS SUMMARY | ~2020-06-07 | XMS | Encounter Summary ---
Demographics + + + | Address | [address] | | | [place] [address] | + + + | Home Phone [...] Team Providers + +------+ + | Care Tear Down Worker Name | Role | Phone | + +------+ + | Kirk French MD | PCP | | + +------+ + Reason for Visit + +--------+ + | Reason | Onset | Comments | | | Date | | + +--------+ + | Lab Order | 06/17/ | due for fasting labs prior to appt | | | 2015 | | + +--------+ + Encounter Details +--------+ + + + + | Date | Type | Department | Care Team | Description | +--------+ + + + + | 06/17/ | Telephone | [facility] [place] | [place], | Lab Order (due for | | 2015 | | CARDIOLOGY [address] | [address]ISA [address] | fasting labs prior | | | | [place], | [place], | to appt) | | | | [place] [id number] | [place] [id number] | | | | | [phone] | [phone] | | | | | | | [...] this encounter Miscellaneous Notes Telephone Encounter - Shea Metcalf - 06/19/2016 8:36 AM PDTPatient called stated Lab order s were not at [facility]. Faxed order to [facility] in [place]. Spoke to Geri from [facility] and confirmed she received the order. Patient will draw labs on 06/20/16.Electronically sign ed by Shea Metcalf at 06/19/2016 9:04 AM PDTTelephone Encounter - Nereida Lambert - 6 10:02 AM PDTPatient returned Jay's call and was notified of fasting blood work due prior to his follow up on 06-23-16. Patient requested that orders be faxed to [facility] in [place] and he plans to do blood work tomorrow morning. Forwarding to [place] to fax orders. Petty armendariz signed by Nereida Lambert at 06/18/2016 10:07 AM PDTTelephone Encounter - Darlene Tirado RN - 06/17/2016 3:46 PM PDTOrder done ...........................................Darlene Tirado RN on 06/17/16 at 15:46 elephone Encounter - Jay Webster Cert MA - 06/17/2016 3:19 PM PDTPatients voicemail is non-descriptive s o left a voicemail for them to call us back in regards to their appointment 06/23/2016. Pham ent is due for fasting labs (Lipid) prior to their appointment. Orders will be in our system but we can forward them to wherever patient would like to have the labs drawn.Electronicall y signed by Erma Laughlin MA at 06/17/2016 3:20 PM PDTdocumented in this encounter Plan of Treatment [...] | | | | | | [place] [id number] | | | | | | [phone] | | | | | | | | +--------+ + + + + documented as of this encounter Visit Diagnoses + + | Diagnosis | + + | Hyperlipidemia, mixed - Primary Mixed hyperlipidemia | + + documented in this encounter"
--- OUTSIDE RECORDS SUMMARY | ~2020-06-07 | XMS | Encounter Summary ---
Demographics + + + | Address | [address] | | | [place] [address] | + + + | Home Phone [...] Team Providers + +------+ + | Care Network Support Analyst Name | Role | Phone | + +------+ + PCP | Unavailable | + +------+ + Encounter Details +--------+ + + + + | Date | Type | Department | Care Team | Description | +--------+ + + + + | 03/08/ | [facility] | [facility] | Emmanuel Daniel MD | | | 2006 | Encounter | MED CTR GENERIC OP | [address] | | | | | CONV DEPT [address] | [address] | | | | | [place], | [address] | | | | | [place] [address] | | | | | | [phone] | | | +--------+ + + + [...] | | | | | | [place] [address] | | | | | | [phone] | | | | | | | | +--------+ + + + + documented as of this encounter Visit Diagnoses Not on filedocumented in this encounter"
--- OUTSIDE RECORDS SUMMARY | ~2020-06-07 | XMS | Encounter Summary ---
Demographics + + + | Address | [address] | | | [place] [address] | + + + | Home Phone [...] Team Providers + +------+ + | Care Towel Inspector Name | Role | Phone | + +------+ + | Michael Amanda DO | PCP | | + +------+ + Reason for Visit +--------+--------+ + | Reason | Onset | Comments | | | Date | | +--------+--------+ + | Other | 02/01/ | unable to take the isosorbide | | | 2013 | | +--------+--------+ + Encounter Details +--------+ + + + + | Date | Type | Department | Care Team | Description | +--------+ + + + + | 02/01/ | Telephone | [facility] [place] | [place], | Other (unable to | | 2013 | | CARDIOLOGY [address] | [address] | take the isosorbide) | | | | [place], | [place], | | | | | [place] [address] | [place] [address] | | | | | [phone] | [phone] | | | | | | | [...] Telephone Encounter - Darlene Tirado RN - 02/06/2014 4:06 PM PDTFred notified ......... ..................................Darlene Tirado RN on 02/06/2014 at 16:06 elephone Encounter - Kailey Pruitt RN - 02/05/2014 3:48 PM PDTLeft message for patient. Electronically kamaljit d by: Kailey Pruitt RN 02/05/2014 15:49 elephone Encounter - Janeen Parekh ARNP - 02/05/2014 7:26 AM PDTThat's too bad that the headaches were so bad. In that case, I think we will have to keep doing the NTG sublingual when he needs it for ch est pain. In the last visit, he said that chest pain was actually better, so let's hope it s tays that way. Thanks! ...........................................PARISA Russell on 02/05/2014 at 7:27 elephone Encounter - Darlene Tirado RN - 02/02/2014 4:26 PM PDTFrousmane is not willing to try 1/2 tablet, he s aid the headache was unbearable. I will consult Janeen again and then call him back with in structions ...........................................Darlene Tirado RN on 02/02/2014 at 1 6:27 elephone Encounter - Darlene Tirado RN - 02/01/2014 3:52 PM PDTLeft message for patient to return my call. ...........................................Darlene Tirado RN on 02/01/2014 at 15:52 elephone Encounter - Janeen Ramirez ARNP - 02/01/2014 12:52 PM PDTHow about ask him if he is willing to try only half a pill? Cut tablets in half and only take a half? Thanks! ...........................................PARISA Russell on 02/01/2014 at 12:53 elephone Encounter - Darlene Tirado RN - 02/01/2014 11:16 AM PDTFrousmane called to report that he can not take the isosobide. He states that his headaches are worse and he just can not tolerate them. Haleigh rodarte has skipped his dose today. I will consult Janeen and then let him know what she would li ke him to do ...........................................Darlene Tirado RN on 02/01/2014 at 11:17 documented in this encounter Plan of Treatment [...] | | | | | | [place] [address] | | | | | | [phone] | | | | | | | | +--------+ + + + + documented as of this encounter Visit Diagnoses + + | Diagnosis | + + | Coronary artery disease - Primary Coronary atherosclerosis of unspecified type of | | vessel, [place] or graft | + + | Hypertension Unspecified essential hypertension | + + | Hyperlipidemia Other and unspecified hyperlipidemia | + + documented in this encounter"
--- OUTSIDE RECORDS SUMMARY | ~2020-06-07 | XMS | Encounter Summary ---
Demographics + + + | Address | [address] | | | [place] [address] | + + + | Home Phone [...] Providers + +------+ + | Care Public Address System Installer Name | Role | Phone | [...] CARDIOLOGY [address] | MD [address] [place] | Interrogation | | | | [place], | [place], | (Primary Dx); | | | | [place] [address] | [place] [address] | Pacemaker; | | | | [phone] | [phone] | Sinoatrial node | | | | [...] encounter Procedure Notes Daljit Singletary MD - 02/20/2020 11:59 PM PDTAssociated Order(s): DEVICE INTERROGATION- R EMOTEProcedure(s): DEVICE INTERROGATION- REMOTEPre-Procedure Diagnose(s): Pacemaker reprogra mming/check; Pacemaker; Sinoatrial node dysfunction (HCC)Date of Remote Interrogation: 020 Refer to [employer] documentation and remote PDF scanned into [employer] for remote interrogation re sults. Data collected by Shabana Lama RN Presenting rhythm: atrial sensed ventricular sensed with rat at 96-100 beats. 2 mode switch episodes accounting for <0.1% of the time. No episodes. 1,329 PVC singles 189.9 PVC singles/month 8 PVC runs Histogram good. Battery longevity 13 months. Apparent normal and stable device function. Device interrogation due in office in 08/2019. Patient notified via voicemail. documented in this encounter Plan of Treatment [...] | | | | | | [place] [address] | | | | | | [phone] | | | | | | | [...] this encounter Results Device Interrogation - Remote (02/20/2020 11:59 PM PDT) + + + | Narrative | Performed At | + + + | Daljit | [facility] | | MD Gemini 01/15/2020 11:53 AMDate of Remote Interrogation: | | | 12/31/2019 Refer to [facility] documentation and remote PDF scanned into | | | [facility] for remote interrogation results. Data collected by [...] + + | Performing | Address | City/[facility] | Phone Number | | Organization | [...]
--- OUTSIDE RECORDS SUMMARY | ~2020-06-07 | XMS | Encounter Summary ---
Demographics + + + | Address | [address] | | | [place] [address] | + + + | Home Phone [...] Team Providers + +------+ + | Care Weatherization Specialist Name | Role | Phone | [...] [address] | | | | | [place], | [place], | | | | | [place] [address] | [place] [address] | | | | | [phone] | [phone] | | | | | | | [...] | | | | | | [place] [address] | | | | | | [phone] | | | | | | | | +--------+ + + + + documented as of this encounter Procedures + +--------+ + + + | Procedure Name | Priori | Date/Time | Associated Diagnosis | Comments | | | ty | | | | + +--------+ + + + | EXTERNAL LAB: BUN | Routin | 05/12/2016 | | Results [...] +-------+ + + + | YUL[place], | 17 | 8 - 25 | [...] + | [facility] | [address] | [place] | [phone] | | [facility] | | [id number] | | | - LABORATORY | | [...]
--- OUTSIDE RECORDS SUMMARY | ~2020-06-07 | XMS | Encounter Summary ---
Demographics + + + | Address | [address] | | | [place] [address] | + + + | Home Phone [...] | + + +---------+ + | Nadine Spencevarsha | ECON | Unknown | | + + +---------+ + Care Team Providers + +------+ + | Care Fastener Technologist Name | Role | Phone | + +------+ + | Kirk French MD | PCP | | + +------+ + Reason for Visit + +--------+ + | Reason | Onset | Comments | | | Date | | + +--------+ + | Medication Orders | 04/07/ | Medication | | | 2019 | | + +--------+ + Encounter Details +--------+ + + + + | Date | Type | Department | Care Team | Description | +--------+ + + + + | 04/07/ | Telephone | [facility] | Matthew Uriarte | Medication Orders | | 2019 | | [address] | MD T[place] [address] | (Medication ) | | | | [place] | [place] | | | | | [address] | [address] | | | | | [phone] | | | +--------+ + + + [...] this encounter Miscellaneous Notes Telephone Encounter - Kira Montoya RN - 04/11/2019 1:52 PM PDTQueued prescription f or Dr Uriarte's review. elephone Encounter - Amada Starr - 04/07/2019 11:15 AM PDTPatient called to request his new prescription for flow max be sent to [facility] [place] Diego melendez like this is the pharmacy we currently have on file for him. Will route to urology clin ica staff for review documented in this encounter Plan of Treatment [...] | | | | | | [place] [address] | | | | | | [phone] | | | | | | | | +--------+ + + + + documented as of this encounter Visit Diagnoses Not on filedocumented in this encounter"
--- OUTSIDE RECORDS SUMMARY | ~2020-06-07 | XMS | Encounter Summary ---
Demographics + + + | Address | [address] | | | [place] [address] | + + + | Home Phone [...] Team Providers + +------+ + | Care Executive Asst Name | Role | Phone | + +------+ + PCP | Unavailable | + +------+ + Encounter Details +--------+ + + + + | Date | Type | Department | Care Team | Description | +--------+ + + + + | 01/17/ | [facility] | [facility] | Jonas Ramos, | | | 2009 | Encounter | MED CTR EMERGENCY | [address] | | | | | CENTER [address] | [facility] | | | | | [place] | [place] [address] | | | | | [address] | [phone] | | | | | [phone] | | | +--------+ + + + [...] [place] | | | | | | [place] [address] | | | | | | [phone] | | | | | | | | +--------+ + + + + documented as of this encounter Visit Diagnoses Not on filedocumented in this encounter"
--- OUTSIDE RECORDS SUMMARY | ~2020-06-07 | XMS | Encounter Summary ---
Demographics + + + | Address | [address] | | | [place] [address] | + + + | Home Phone [...] Team Providers + +------+ + | Care Boat Hoist Operator Name | Role | Phone | [...] + + | 06/25/ | Office | [facility] | [place], | SINUS BRADYCARDIA | | 2013 | Visit | CARDIOLOGY [address] | [address] | (Primary Dx); | | | | [place], | [place], | Symptomatic PVCs; | | | | [place] [address] | [place] [address] | Coronary artery | | | | [phone] | [phone] | disease; | | | | | [...] encounter Progress Notes Janeen Ramirez ARNP - 06/25/2014 12:38 PM PDTFormatting of this [...] chest pain and anxiety. After that episode sandra rodarte has not had any more complaints of [...] needed for Chest pain. 25 tablet 12 [place]-3 Fatty Acids (SALMON OIL-1000 PO) CAPS, one capsule by mouth daily twice daily ONE TOUCH DELICA LANCETS [facility] Check glucose as needed for [...] HGBEX 16.1 01/25/2014 I reviewed records from [facility] for emergency department visit o n [...] yard. He is in class I-II of [place] [employer] funct ional class. There are [...] to go back in 3 days to [place] for an attempt of ablation under general [...] dizziness. He is in class I-II of [place] [employer] functional class. There are no [...] made to ensure accuracy; however, inadvertent computerized intranet specialist errors may be pre sent. Electronically signed [...] | | | | | | [place] [address] | | | | | | [phone] | | | | | | | | +--------+ + + + + documented as of this encounter Visit Diagnoses + + | Diagnosis | + + | SINUS BRADYCARDIA - Primary Sinoatrial node dysfunction | + + | Symptomatic PVCs Other premature beats | + + | Coronary artery disease Coronary atherosclerosis of unspecified type of vessel, | | seminole or graft | + + | Hypertension Unspecified essential hypertension | + + | Syncope Syncope and collapse | + + | Hyperlipidemia Other and unspecified hyperlipidemia | + + documented in this encounter
--- OUTSIDE RECORDS SUMMARY | ~2020-06-07 | XMS | Encounter Summary ---
Demographics + + + | Address | [address] | | | [place] [address] | + + + | Home Phone [...] Providers + +------+ + | Care Medicine Tech Name | Role | Phone | + +------+ + PCP | Unavailable | + +------+ + Encounter Details +--------+ + + + + | Date | Type | Department | Care Team | Description | +--------+ + + + + | 10/29/ | Hospital | [facility] | Pia Akhtar | | | 2003 | Encounter | [address] | [address] | | | | | [address] | [address] | | | | | [place] | [place] [address] | | | | | [address] | [phone] | | | | | [phone] | | | +--------+ + + + [...] | | | | | | [place] [address] | | | | | | [phone] | | | | | | | | +--------+ + + + + documented as of this encounter Visit Diagnoses Not on filedocumented in this encounter"
--- OUTSIDE RECORDS SUMMARY | ~2020-06-07 | XMS | Encounter Summary ---
Demographics + + + | Address | [address] | | | [place] [address] | + + + | Home Phone [...] Team Providers + +------+ + | Care Rope Tier Name | Role | Phone | + +------+ + | Kirk French MD | PCP | | + +------+ + Encounter Details +--------+ + + + + | Date | Type | Department | Care Team | Description | +--------+ + + + + | 01/05/ | Anesthesia | [facility] | Jarett Barakat | | | 2019 | Event | MED [facility] OP | P, MD [address] | | | | | [address] | [address] [place], [place] | | | | | [place], [place] | [address] | | | | | [address] | | | | | | [phone] | | | +--------+ + + + + Anesthesia Record + + + + + | Procedure Name | Responsible | Anesthesia Start | Anesthesia Stop Time | | | Anesthesiologist | Time | | + + + + + | DAVIAN FishN/A Dom) | Jarett Barakat, | 01/05/19833 | 01/05/19920 | | | MD | | | + + + + + +----+---+ + + | Da | T | Event | Comment | | te | i | | | | | m | | | | | e | | | +----+---+ + + | 02 | 0 | | | | /1 | 8 | | | | 4/ | 3 | | | | 20 | 3 | | | | 19 | | | | +----+---+ + + | | 0 | An Start | Room ready, anesthesia equipment checked, essential drugs & | | | 8 | | equipment available. Patient Identity checked, anesthesia plan | | | 3 | | explained and consent obtained. Patient transported to [facility], | | | 4 | | Monitors applied. Reassessment prior to anesthesia | | | | | induction/procedure. | +----+---+ + + | | 0 | An Start | | | | 8 | Data | | | | 3 | | | | | 4 | | | +----+---+ + + | | 0 | An Checkout | Pre-use anesthesia machine/equipment checkout. | | | 8 | | | | | 3 | | | | | 4 | | | +----+---+ + + | | 0 | an sofia now | | | | 8 | | | | | 3 | | | | | 6 | | | +----+---+ + + | | 0 | AN | Per surgeon request | | | 8 | Antibiotic | | | | 3 | declined | | | | 7 | | | +----+---+ + + | | 0 | First | | | | 8 | Inc/Proc St | | | | 3 | | | | | 8 | | | +----+---+ + + | | 0 | an sofia now | EGD | | | 8 | | | | | 4 | | | | | 3 | | | +----+---+ + + | | 0 | an sofia now | Colonoscopy | | | 8 | | | | | 5 | | | | | 1 | | | +----+---+ + + | | 0 | an sofia now | | | | 9 | | | | | 1 | | | | | 6 | | | +----+---+ + + | | 0 | an stop | | | | 9 | data | | | | 1 | | | | | 6 | | | +----+---+ + + | | 0 | An Stop | Patient handed off to recovery nurse. | | | 2 | | | | | 1 | | | +----+---+ + + +------+ | Meds | +------+ + + + | Name | Total | + + + | propofol | 200 mg | + + + | propofol (DIPRIVAN) injection | 307.16 mg | | (bolus) (20 mL) | | + + + | ondansetron | 4 mg | + + + | lactated ringers (LR) infusion | 700 mL | + + + + + | Name | + + | O2 Flow Rate (L/Min) | + + + + | No blood administrations on file. 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 | 03/19/15 0912 by | | | ker | | | | +--------+ + + + | Periph | 01/05/19; 07; Right; Hand; | 01/05/19745 by | 01/05/19950 by | | eral | [id number] catheter system; | Kasie Natarajan RN | Kanwal Bello, | | IV | 20 gauge, 1 1/4 in length; | | RN | | | distraction, intradermal | | | | | injection, tolerated well; no | | | | | longer indicated, removed per | | | | | policy/procedure, catheter/device | | | | | intact; 01/05/19; 950 | | | +--------+ + + + | Airway | Placement Date: 01/05/19; | 01/05/19843 by | 01/05/19928 by | | | Placement Time: 843 (created via | Jarett Barakat, | Karina Dooley, | | | procedure documentation); | MD | RN | | | Removal Date: 01/05/19; Removal | | | | | Time: 928 | | | +--------+ + + + documented in [...] encounter OR Notes Anesthesia Postprocedure Evaluation - Jarett Barakat MD - 01/05/2019 10:15 AM PSTForm atting of this note might be different from the original. ANESTHESIA POSTANESTHESIA EVALUATION Moechica Sanchez 58 y.o. male 1960 [id number] Procedure(s) EGD (N/A Mouth) COLONOSCOPY (N/A Rectum) Cooperates? Yes Mental Status Performs simple tasks. Respiratory Satisfactory - Airway patent (self maintained). Cardiovascular Satisfactory - Blood pressure and heart rate acceptable Temperature Satisfactory Pain Satisfactory N/V Control Satisfactory Hydration Satisfactory - No signs of dehydration Complications None apparent Vitals: 01/05/19 0921 01/05/19 0935 01/05/19 0945 BP: 108/68 111/80 Pulse: 71 70 70 Temp: 36.3 C (97.3 F) Resp: 16 16 15 SpO2: 95% 95% 97% Electronically signed by Jarett Barakat MD 01/05/2019 10:15 [facility] nesthesia Procedure Notes - Jarett Barakat MD - 01/05/2019 8: 44 AM PSTAssociated Order(s): ANE AIRWAY NOTEDocument Blocks and LDA Procedures nesthesia Prepro cedure Evaluation - Jarett Barakat MD - 01/05/2019 1:19 AM PST ANESTHESIA PREANESTHESIA EVALUATION Moe Sanchez 58 y.o. male 1960 [id number] Procedure(s): EGD (N/A Mouth) COLONOSCOPY (N/A Rectum) Review of Systems / Med History Cardiovascular (+) hypertension, CAD, pacemaker (Medtronic) (+) Dysrhythmias Pulmonary (+) smoking history (Quit 2012)(+) sleep apnea: known Neurology (+) CVA, back pain, chronic pain, fibromyalgia Psychology (+) anxiety, depression, substance abuse, bipolar disorder Gastrointestinal/Hepatic (+) reflux/GERD, hyperlipidemia Other (+) thrombocytopenia Physical Exam Airway MP II, TM >3 FB, Mouth opening >2 FB. Neck: full ROM, extends >30 degrees. Dental Doug ssly normal except where noted below.; CV Rhythm regular. Rate Normal. (-) murmur. Pulm Clear to auscultation bilaterally. Neuro Grossly normal. Anesthesia Plan ASA 3 (Pacemaker, CAD, DIDIER, Multiple Medical Problems w/ Multiple Long-term Medications) Type: TIVA. Induction: Intravenous. Potential problems: None anticipated. Monitors: Standard ASA monitors. Consent statement:Anesthetic plan, alternatives, risks and benefits discussed with patient. Risks discussed included (but were not limited to): perioperative CV events, sore throat, h eart problems, respiratory events, nausea, . Consenting person understands and agrees to proceed. PARQ. Patient Active Problem List: Hyperlipidemia, mixed Bipolar disorder Mixed anxiety depressive disorder Smoker Hypertension NONDEPENDENT OPIOID ABUSE IN REMISSION Fibromyalgia LUMBAGO CHRONIC PAIN SYNDROME Thrombocytopenia FATIGUE ABDOMINAL PAIN, UNSPECIFIED SITE NECK PAIN, CHRONIC Syncope Obstructive sleep apnea ORGANIC INSOMNIA UNSPECIFIED CENTRAL SLEEP APNEA CONDS CLASSIFIED ELSEWHERE Ulcerative colitis Chest pain. No ACS. Sinoatrial node dysfunction with symptomatic bradycardia Pacemaker - Medtronic - ADDR01 Adapta - Implanted 06/14/2009 HEPATITIS B PUD FATTY LIVER DISEASE Multiple substance abuse DEPRESSION Hypoglycemia Symptomatic PVCs Tachycardia Preventative health care Coronary artery disease involving [place] coronary artery of [place] heart without angina pectoris Cannabis abuse, daily use Ascending thoracic aortic aneurysm Pacemaker reprogramming/check DO NOT DELETE Anxiety about health Diarrhea Weight loss Beta Blockers - Daily Use Depression with anxiety H/O Lumbar Fusion - "6 levels" per pt . documented in thi s encounter Plan [...] [address] | | | | | | [address] [place], | | | | | | [place] [address] | | | | | | [phone] | | | | | | | | +--------+ + + + + documented as of this encounter Procedures + +--------+ + + + | Procedure Name | Priori | Date/Time | Associated Diagnosis | Comments | | | ty | | | | + +--------+ + + + | ANE AIRWAY NOTE | Routin | 01/05/2019 | | Results for this | | | e | 8:44 AM | | procedure are in the | | | | PST | | results section. | + +--------+ + + + documented in this encounter Results Anesthesia Airway Note (01/05/2019 8:44 AM PST) + + + | Narrative | Performed At | + + + | Jarett Barakat MD 01/05/2019 8:44 Document Blocks and | | | LDA Procedures | | + + + + + | Procedure Note | + + | Skaarup, Jarett P, MD - 01/05/2019 8:44 AM PST Document Blocks and LDA Procedures | + + documented in this encounter Visit Diagnoses Not on filedocumented in this encounter Administered Medications + +--------+ +------+------+------+ | Medication Order | MAR | Action | Dose | Rate | Site | | | Action | Date | | | | + +--------+ +------+------+------+ | ondansetron (ZOFRAN) injection | Given | 01/05/20 | 4 mg | | | | Intravenous, PRN, Nausea, | | 19 8:37 | | | | | Vomiting, Starting [facility] 01/05/19 at | | AM PST | | | | | 0837, Anesthesia Intra-op | | | | | | + +--------+ +------+------+------+ +---+---+ | | | +---+---+ + +-------+ +-------+---+---+ | propofol (DIPRIVAN) injection | Given | 01/05/20 | 50 mg | | | | Intravenous, PRN, Starting Talia | | 19 8:43 | | | | | 01/05/19 at 0840, Anesthesia | | AM PST | | | | | Intra-op | | | | | | + +-------+ +-------+---+---+ +-------+ +-------+---+---+ | Given | 01/05/20 | 50 mg | | | | | 19 8:42 | | | | | | AM PST | | | | +-------+ +-------+---+---+ | Given | 01/05/20 | 50 mg | | | | | 19 8:41 | | | | | | AM PST | | | | +-------+ +-------+---+---+ +---+---+ | | | +---+---+ + + + + +-------+---+ | propofol (DIPRIVAN) injection | Rate/Dos | 01/05/20 | 100 | 65.8 | | | Intravenous, CONTINUOUS PRN, | e Change | 19 8:51 | mcg/kg/m | mL/hr | | | Starting Talia 01/05/19 at 0843, | | AM PST | in | | | | Anesthesia Intra-op | | | | | | + + + + +-------+---+ +---------+ + +-------+---+ | New Bag | 01/05/20 | 150 | 98.7 | | | | 19 8:43 | mcg/kg/m | mL/hr | | | | AM PST | in | | | +---------+ + +-------+---+ +---+---+ | | | +---+---+ documented in this encounter
--- OUTSIDE RECORDS SUMMARY | ~2020-06-07 | XMS | Encounter Summary ---
Demographics + + + | Address | [address] | | | [place] [address] | + + + | Home Phone [...] Team Providers + +------+ + | Care Editing Clerk Name | Role | Phone | + +------+ + | Kirk French MD | PCP | | + +------+ + Encounter Details +--------+ + + + + | Date | Type | Department | Care Team | Description | +--------+ + + + + | 10/25/ | [facility] | [facility] | Kirk French | Aneurysm (HCC) | | 2017 | Encounter | MED CTR ULTRASOUND | D, MD [address] | | | | | [address] [place] | [address] | | | | | [place], [place] | [place] [address] | | | | | [address] | [phone] | | | | | [phone] | | | | | | | [...] + + + +---------+ + + | [place]-3 Fatty | CAPS, one capsule by | [...] | | | | | | [place] [address] | | | | | | [phone] | | | | | | | | +--------+ + + + + documented as of this encounter Visit Diagnoses + + | Diagnosis | + + | Aneurysm (HCC) Aneurysm of unspecified site | + + documented in this encounter"
--- OUTSIDE RECORDS SUMMARY | ~2020-06-07 | XMS | Encounter Summary ---
Demographics + + + | Address | [address] [place] [address] [address] | | | [place] [address] | + + + | Home Phone | | + + + | Preferred Language | Unknown | + + + | Marital Status | | + + + | Anabaptism Affiliation | Unknown | + + + [...] [place] | | | | | [address] | | + + + + + Care Team Providers + +------+ + | Care Field Laborer Name | Role | Phone | + [...] Full | MD Emmanuel | [facility] [address] | | | | | incontinence | [facility] | [address] | | | | | of feces | PHYSICIAN | [facility] | | | | | Diarrhea, | [facility] | Health and | | | | | unspecified | [address] | Healing, | | | | | | [address] | [address] | | | | | | [place] | [place], [place] | | | | | | [place], [place] | [address] | | | | | | [address] | Phone: | | | | | | Phone: | [phone] | | | | | | [phone] | Fax: | | | | | | Fax: | [phone] | | | | | | [phone] | | +--------+--------+ + + + + Encounter Details +--------+---------+ + + + | Date | Type | Department | Care Team | Description | +--------+---------+ + + + | 09/28/ | Office | Digestive Health | Bridgette Rios, | Chronic diarrhea | | 2019 | Visit | [facility] at [facility] [address] | [address] | (Primary Dx); | | | | [facility] | [place], [place] | Abdominal cramping; | | | | for Health and | [address] | Unintentional weight | | | | [facility], [facility] 2 | [phone] | loss | | | | [place], [place] | | | | | | [address] | | | | | | [phone] | | | +--------+---------+ + + + [...] some lab orders to [facility] 2. 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 Gastroenterology Clinic [facility] ~ Initial Consultation / New Patient Evaluation Referring Physician: Emmanuel Daniel Patient Identification: Moe Sanchez is a pleasant 59 y.o. male with a history of ch ronic diarrhea who presents to the Gastroenterology Clinic for evaluation and treatment chantal mmendations for diarrhea and to establish care in our clinic. GI Problem List 1. Chronic diarrhea 2. Hypertension 3. Cardiac pacemaker, history of ablation for PVCs 4. Anxiety 5. Kidney stones Workup in the past included upper endoscopy colonoscopy in 2018. Upper endoscopy showed duo denitis and is thought to be more reactive then characteristic of malabsorption i.e. celiac sprue. Colonoscopy showed small ulcerations in the terminal ileum biopsies were negative for inflammatory bowel disease. CT scan done through [facility] November show ed mild diverticulosis without evidence of diverticulitis. Possible gastroenteritis. Small r enal calculi were noted. Patient was placed on antibiotics for unknown reason and reported n o improvement or worsening of his symptoms. CT done at the time of the emergency room visit CMP were normal. The patient was seen by his PCP November 25 and again CBC and CMP were normal . Impression at that office visit was probable irritable bowel except for history of GI trac t bleeding Data Review Prior Endoscopic History Colonoscopy/EGD - 12/2017- normal including duodenal bx and colon biopsies FINAL PATHOLOGIC DIAGNOSIS: A. Duodenal biopsy: -Chronic duodenitis with mild activity, Rohan gland hyperplasia, gastric foveolar met aplasia and reactive epithelial changes. -Negative for Helicobacter-type organisms by immunohistochemical stain. B. Colon, left, biopsy: -Fragments of colonic mucosa with no significant diagnostic abnormality. C. Small bowel, terminal ileum, biopsy: -Fragments of small bowel mucosa with no significant diagnostic abnormality. D. Colon, ascending, biopsy: -Fragments of colonic mucosa with focal adenomatous change. 01/05/19 MICROSCOPIC DESCRIPTION: Histologic sections of all submitted blocks are examined by light microscopy. These finding s, together with the gross examination, support the pathologic diagnosis. FINAL PATHOLOGIC DIAGNOSIS: A. Duodenum, biopsies: -Benign duodenal mucosa without abnormality, including no evidence of celiac disease or peptic duodenitis. B. Right colon, biopsies: -No pathologic abnormality, including no evidence of acute, chronic or microscopic coli tis. C. Left colon, biopsies: -No pathologic abnormality, including no evidence of acute, chronic or microscopic coli tis. Data 04/11/18 stool studies Culture-negative Ova and parasite- negative Negative salmonella, shigella, campylobacter Negative shiga toxin type 1 and 2 C.dif negative Negative fecal WBCs Giardia negative 11/2018 WBC 7, hg 17.4, hct 49.5, plt 184, MCV 100.5 Normal differential Alb 4.3 05/08/19 Campylobacter by PCR - neg C. Difficile by PCR - neg Plesiomonas Shigelloides - neg Salmonella by PCR - neg Y. Enterocolitica by PCR - neg Vibrio by PCR - neg Vibrio Cholerae by PCR - neg Enteroaggregative E. Coli - neg Enteropathogenic E. Coli - positive Enterotoxigenic E.Coli by PCR - neg Shiga-like Toxin E.Coli by PCR - neg E.Coli O157 - neg Shigella/Enteroinvasive E.Coli - neg Cryptosporidium by PCR - neg Cyclospora Cayetanensis by PCR - neg Entamoeba Histolytica by PCR Cryptosporidium by PCR Cyclospora Cayetanensis by PCR Entamoeba Histolytica by PCR Giardia Lamblia by PCR Adenovirus F 40/41 Astrovirus by PCR Norovirus GI/GII by PCR Rotavirus A by PCR Sapovirus (1,11,IV,V) by PCR History of Present Illness: Here with his from [place] for second opinion regarding severe abdominal cramps, isreal rrhea and weight loss following a GI illness contracted during a trip to [place]. He reports that 2 years ago he was traveling in [place] and he had some suspicious seafood. He develo ps profound bloody diarrhea with severe abdominal pain. He was hospitalized in [facility] and w as treated with IV hydration. He is unsure if there was other treatment or if a specific org anism was cultured or confirmed. His severe symptoms lasted several days. He subsequently continued to have profound abdominal cramping with associated diarrhea. Cr amping was initially post-prandial only but is not fairly constant. He has trouble sleeping due to the pain. His bowel movements are watery and urgent and usually occur after he eats. He is becoming afraid to eat. He has had incontinence. He has lost about 60 lbs (278 down to 218 lbs) and is still losing weight. Often when he is having diarrhea he will also vomi t bile. He denies fevers or chills. Currently does not have blood in his stools. Has tried several medications. Metamucil TID helpful at least to bulk up the stools. He h as not had much benefit from max dose loperamide or lomotil. He isn't sure what diet to fol low but does notice that a high fiber diet makes symptoms worse. He thinks he is lactose in tolerant though cheese tends to "bind him up" He does drink chocolate milk which he says he tolerates. His mentioned they use artificial sweeteners in their tea. Review of Systems: Constitutional: no fevers/chills, night sweats; good energy level Eyes: no blurry vision; no eye pain or redness ENT: no pain with swallowing or problem swallowing, +tinnitus CV: no murmur, chest pain, palpitations Resp: no cough, no shortness of breath GI: as per HPI; no jaundice or liver disease : no dysuria, no changes in color of urine Skin: no rashes Neuro: no headaches, no numbness/tingling, no weakness Hem/lymph: no LAD Allergies/immunologic: no seasonal allergies Musculoskeletal: no muscle cramps; no joint aches Past Medical, Family & Social History: I reviewed the history below with the patient and made any relevant updates or changes in t he medical record. Past Medical History: Diagnosis Date Bipolar disorder Ex-smoker HTN DIDIER (obstructive sleep apnea) PVC's (premature ventricular contractions) Symptomatic bradycardia S/P dual chamber permanent pacemaker in Past Surgical History Procedure Laterality Date Cervical spine surgery Appendectomy FHX Mom and dad both with heart disease Social History Socioeconomic History Marital status: Spouse name: Not on file Number of children: Not on file Years of education: Not on file Highest education level: Not on file Occupational History Not on file Social Needs Financial resource strain: Not on file Food insecurity: Worry: Not on file Inability: Not on file Transportation needs: Medical: Not on file Non-medical: Not on file Tobacco Use Smoking status: Former Smoker Years: 40.00 Last attempt to quit: 02/03/2007 Years since quittin.6 Smokeless tobacco: Never Used Tobacco comment: Smoked cigars occasionally(1 a year) Substance and Sexual Activity Alcohol use: No Drug use: No Sexual activity: Not on file Lifestyle Physical activity: Days per week: Not on file Minutes per session: Not on file Stress: Not on file Relationships Social connections: Talks on phone: Not on file Gets together: Not on file Attends uatsdin service: Not on file Active member of club or organization: Not on file Attends meetings of clubs or organizations: Not on file Relationship status: Not on file Other Topics Concern Not on file Social History Narrative Not on file Allergies Allergen Reactions Biaxin [Clarithromycin] Penicillins Vicodin [Hydrocodone-Acetaminophen] Current Outpatient Medications Medication ASCORBIC ACID (VITAMIN C ORAL) Aspirin 81 mg Oral Tablet HYDROmorphone (DILAUDID) 4 mg Oral Tablet lisinopril (ZESTRIL) 20 mg Oral Tablet metoprolol tartrate 50 mg Oral Tablet MULTI-VITAMIN ORAL oxyCODONE CR (OXYCONTIN) 20 mg Oral Tablet Extended Release 12 hr oxyCODONE, immediate release, 30 mg Oral Tablet SALMON OIL/OMEGA-3 FATTY ACIDS (SALMON OIL-1000 ORAL) No current facility-administered medications for this visit. Physical Exam: BP 147/89 | Pulse 76 | Resp 14 | Ht 1.93 m (6' 4") | Wt 98.9 kg (218 lb) Comment: Repor kevin by patient | BMI 26.54 kg/m | BSA 2.3 m Appearance: Pleasant male who appears comfortable and in no apparent distress. Psychological: Appropriate mood and affect. Eyes: Sclera anicteric without injection. HENT: Oropharynx visualized and benign without visible ulceration. Neck: No cervical lymphadenopathy, no thyromegaly. Lung: Clear to Auscultation Bilaterally. CV: Regular Rate and Rhythm. No murmurs. Abdomen: Normoactive bowel Sounds, Soft, Nondistended, nontender Assessment: Moe Sanchez is a pleasant 59 y.o. male who presents to the Gastroenterology Clinic f or evaluation of post-infectious diarrhea, abdominal cramping and weight loss. He has had e xtensive evaluation including stool studies for multiple organisms with a positive enteropat hogenic E.coli. Unclear to me if he received treatment but will plan to repeat this study as well as another broad panel including giardia, ova and parasite, stool culture and also celeste l obtain fecal calprotecin and fecal elastase to screen for inflammation and maldigestion. He has not responded to standard antidiarrheal agents so will start trial of nortryptiline w hich should help with both abdominal pain and diarrhea. Will uptitrate if tolerated. Final ly, recommend a capsule endoscopy to complete evaluation of small bowel if these stool studi es are negative. Plan and Recommendations: 1. [facility] in [place] for stool studies as outlined above 2. If negative and symptoms persist, recommend capsule endoscopy (this could be completed b y local fan runner or he could return to [place] for this test) 3. Nortryptiline 25mg q HS with instruction to titrate to 50mg q HS after 2 weeks if tolera kevin Follow-Up: with local fan runner Counseling Time: I spent a total of 35 minutes with this patient, of which greater than 50 % of the time was spent in counseling. Specific issues that were discussed included a revie w of the disease, diagnostic tools that help in our management plans for the patient's chron ic diarrhea, abdominal cramping and weight loss and goals for treatment. Bridgette Rios MD [facility] documented in this e ncounter Plan of Treatment Not on filedocumented as of this encounter Visit Diagnoses + + | Diagnosis | + + | Chronic diarrhea - Primary Diarrhea | + + | Abdominal cramping Abdominal pain, unspecified site | + + | Unintentional weight loss Loss of weight | + + documented in this encounter
--- OUTSIDE RECORDS SUMMARY | ~2020-06-07 | XMS | Encounter Summary ---
Demographics + + + | Address | [address] | | | [place] [address] | + + + | Home Phone [...] Team Providers + +------+ + | Care Adjunct Philosophy Faculty Name | Role | Phone | + +------+ + PCP | Unavailable | + +------+ + Encounter Details +--------+ + + + + | Date | Type | Department | Care Team | Description | +--------+ + + + + | 01/31/ | Hospital | [facility] | | | | 2008 | Encounter | [facility] EM[facility]ENCY | | | | | | [address] | | | | | | [place] | | | | | | [address] | | | | | | [phone] | | | +--------+ + + + [...] | | | | | | [place] [address] | | | | | | [phone] | | | | | | | | +--------+ + + + + documented as of this encounter Visit Diagnoses Not on filedocumented in this encounter"
--- OUTSIDE RECORDS SUMMARY | ~2020-06-07 | XMS | Encounter Summary ---
Demographics + + + | Address | [address] | | | [place] [address] | + + + | Home Phone [...] Team Providers + +------+ + | Care Plumber Helper Name | Role | Phone | [...] [place] | Sil[place], | Other | | 2018 | | CARDIOLOGY [address] | [address] | | | | | [place], | [place], | | | | | [place] [address] | [place] [address] | | | | | [phone] | [phone] | | | | | | | [...] this encounter Miscellaneous Notes Telephone Encounter - Dlieep Negrete RN - 01/24/2019 12:37 PM PSTSpoke [...] | | | | | | [place] [address] | | | | | | [phone] | | | | | | | | +--------+ + + + + documented as of this encounter Visit Diagnoses Not on filedocumented in this encounter"
--- OUTSIDE RECORDS SUMMARY | ~2020-06-07 | XMS | Encounter Summary ---
Demographics + + + | Address | [address] [place] [address] [address] | | | [place] [address] | + + + | Home Phone | | + + + | Preferred Language | Unknown | + + + | Marital Status | | + + + | Orthodoxy Affiliation | Unknown | + + + | Race | White | + + + | Ethnic Group | Not or | + + + Author + + + | Author | [facility] | + + + | Organization | [facility] | + + + | Address | Unknown | + + + | Phone | Unavailable | + + + Support + + + + + | Name | Relationship | Address | Phone | + + + + + | Rachel Valencia | ELIEZER | [place] | | | | | [address] | | + + + + + Care Team Providers + +------+ + | Care Complaint Investigations Officer Name | Role | Phone | [...] Chest pain | Farooq Almaguer, | [facility] [address] | | | | | Bradycardia | DO [address] | | | | | Procedures | Yao Booth | [facility] | | | | | | [facility] | Health and | | | | | TRANSTHORACI | [facility] [place] | Healing, | | | | | C | [address] | [address] | | | | | ECHOCARDIOGR | Phone: | [place], [place] | | | | | AM, ADULT | [phone] | [address] | | | | | | Fax: | Phone: | | | | | | [phone] | [phone] | +--------+--------+ + + + + Encounter Details +--------+ + + + + | Date | Type | Department | Care Team | Description | +--------+ + + + + | 02/03/ | Hospital | Cardiac | | | | 2010 | Encounter | Non-Invasive Testing | | | | | | at [facility] [address] | | | | | | [facility] | | | | | | [facility] and Healing, | | | | | | [address] | | | | | | [place], [place] | | | | | | [address] | | | | | | [phone] | | | +--------+ + + + [...] Tab by mouth | | 0 | 03/15/20 | | | (VITAMIN C ORAL) | [...] by mouth. 2 | | 0 | / | | | (OXYCONTIN) 20 mg | tablets two to three | | | 11 | | | Oral Tablet Extended | times daily | | | | | | Release 12 hr | | | | | | + + + +---------+ + + | oxyCODONE, | Take by mouth. 1-2 | | 0 | /1520 | | | immediate release, | tablets every 4-6 | | | 11 | | | 30 mg Oral Tablet | hours | | | | | + + + +---------+ + + | SALMON OIL/OMEGA-3 | Take 2 Caps by mouth | | 0 | 02/04/20 | | | FATTY ACIDS (SALMON | once daily. | | | 11 | | | OIL-1000 ORAL) | | | | | | + + + +---------+ + + documented as of this encounter Progress Notes Rolan Hernandez - 02/03/2011 4:03 PM PDTTransthoracic echocardiogram completed. Final [...]
--- OUTSIDE RECORDS SUMMARY | ~2020-06-07 | XMS | Encounter Summary ---
Demographics + + + | Address | [address] | | | [place] [address] | + + + | Home Phone [...] Team Providers + +------+ + | Care Paperhanger Contractor Name | Role | Phone | + +------+ + | Kirk French MD | PCP | | + +------+ + Reason for Visit + +--------+ + | Reason | Onset | Comments | | | Date | | + +--------+ + | Medication Refill | 07/31/ | | | | 2019 | | + +--------+ + Encounter Details +--------+ + + + + | Date | Type | Department | Care Team | Description | +--------+ + + + + | 07/31/ | Telephone | [facility] | Emmanuel Daniel MD | Medication Refill | | 2019 | | GASTROENTEROLOGY | [address] [place] | | | | | [address] [place] | [address] [place], [place] | | | | | [address] [place], [place] | [address] | | | | | [address] | | | | | | [phone] | | | +--------+ + + + [...] Telephone Encounter - Kaylynn Copeland RN - 07/31/2019 1:35 PM PDTFred calls asking f or a refill on his hyoscyamine as he states this really helps with the abdominal cramping. Medication refilled. documented in this encounter Plan of Treatment [...] | | | | | | [place] [address] | | | | | | [phone] | | | | | | | | +--------+ + + + + documented as of this encounter Visit Diagnoses Not on filedocumented in this encounter"
--- OUTSIDE RECORDS SUMMARY | ~2020-06-07 | XMS | Encounter Summary ---
Demographics + + + | Address | [address] | | | [place] [address] | + + + | Home Phone [...] Team Providers + +------+ + | Care Substation Engineer Name | Role | Phone | + +------+ + PCP | Unavailable | + +------+ + Encounter Details +--------+ + + + + | Date | Type | Department | Care Team | Description | +--------+ + + + + | 08/02/ | Hospital | [facility] | | | | 2001 | Encounter | MED CTR EMERGENCY | | | | | | [address] | | | | | | [place] | | | | | | [address] | | | | | | [phone] | | | +--------+ + + + [...] | | | | | | [place] [address] | | | | | | [phone] | | | | | | | | +--------+ + + + + documented as of this encounter Visit Diagnoses Not on filedocumented in this encounter"
--- OUTSIDE RECORDS SUMMARY | ~2020-06-07 | XMS | Encounter Summary ---
Demographics + + + | Address | [address] | | | [place] [address] | + + + | Home Phone [...] Team Providers + +------+ + | Care Pump Mechanic Name | Role | Phone | + +------+ + | Michael Amanda DO | PCP | | + +------+ + Reason for Visit +--------+--------+ + | Reason | Onset | Comments | | | Date | | +--------+--------+ + | Other | 04/11/ | not feeling well | | | 2013 | | +--------+--------+ + Encounter Details +--------+ + + + + | Date | Type | Department | Care Team | Description | +--------+ + + + + | 04/11/ | Telephone | [facility] | Silvia, | Other (not feeling | | 2013 | | CARDIOLOGY [address] | [address] | well) | | | | [place], | [place], | | | | | [place] [address] | [place] [address] | | | | | [phone] | [phone] | | | | | | | [...] Telephone Encounter - Darlene Tirado RN - 04/26/2014 11:00 AM PDTFred reports he does ta ke the amlodipine but is oscar if he can get the clonidine twice daily. He missed his appoi ntment yesterday and is willing to reschedule. He would like an EKG when he comes in. Appo intment will be arranged for him and he will be notified ................................... ........Darlene Tirado RN on 04/26/2014 at 11:05 elephone Encounter - Darlene Tirado RN - 04/24/2014 10:55 AM PDTPatient has appointment tomorrow. Will hav e him discuss with Janeen at that time ...........................................Darlene mcqueen RN on 04/24/2014 at 10:56 elephone Encounter - Darlene Tirado RN - 04/19/2014 1:18 PM PDTFred returned my call today and left a mess age on voicemail, I attempted to call him back. Left message for patient to return my call. ...........................................Darlene Tirado RN on 04/19/2014 at 13:19 elephone Encounter - Darlene Tirado RN - 04/18/2014 1:36 PM PDTLeft message for patient to return my call. ...........................................Darlene Tirado RN on 04/18/2014 at 13:36 elephone Encounter - Janeen Ramirez ARNP - 04/18/2014 12:09 PM PDTDiannaster, Can we find out if Amilcar is taking Amlodipine 10 mg once a day and clonidine 0.2 mg tid? And is he feeling better? Thanks! ...........................................PARISA Russell on 04/18/2014 at 12:15 elephone Encounter - Jay Webster Cert [place] - 04/18/2014 9:28 AM PDTFormatting of this note might be differ ent from the original. Next Visit: 04/25/2014 EVR Blood pressure log received from patient as follows: Medication Change: Not listed Date BP AM Pulse Am BP PM Pulse PM 03/20/14 139/96 81 122/86 76 03/21/14 122/96 72 134/97 77 03/23/14 None None 130/89 77 03/26/14 None None 113/85 74 03/27/14 128/95 76 None None 03/28/14 125/89 76 None None 04/07/14 148/112 77 165/118 82 04/08/14 125/91 75 135/95 75 04/09/14 121/59 72 None None 04/10/14 137/96 83 152/99 103 04/11/14 163/96 86 None None 04/13/14 141/105 75 None None 04/14/14 144/97 74 132/87 82 04/15/14 152/105 86 110/78 78 04/17/14 135/93 78 132/98 76 Additional Comments: 04/07/14 A lot of chest Pain 04/09/14 114/82 78 shortly after morning reading 04/10/14 Evening reading " I feel Shitty" 04/17/14 Morning reading " I feel Bad"Electronically signed by Erma Laughlin MA at 0 04/18/2014 9:33 AM PDTTelephone Encounter - Darlene Tirado RN - 04/13/2014 10:55 AM PDTLe ft message for patient to return my call. ...........................................Darlene Tirado RN on 04/13/2014 at 10:55 elephone Encounter - Darlene Tirado RN - 04/12/2014 3:48 PM PDTLeft message for patient to return my call. ...........................................Darlene Tirado RN on 04/12/2014 at 15:49 elephone Encounter - Darlene Tirado RN - 04/11/2014 2:33 PM PDTAttempted to contact Amilcar, line was busy .. .........................................Darlene Tirado RN on 04/11/2014 at 14:33 elephone Encounter - Janeen Ramirez ARNP - 04/11/2014 12:55 PM PDTDo we have any blood pressure measures? Is it since he starting taking the Amlodipine? Is the shortness of breath all the time or only on exertion? Can we get any more information on the symptoms? Are they heart related? Has sandra rodarte seen his PCP? Does he think he needs to be seen? Thanks! ...........................................PARISA Russell on 04/11/2014 at 12:58 elephone Encounter - Darlene Tirado RN - 04/11/2014 11:54 AM PDTFred called to report that he is not feelin g well. He is weak, short of breath and just not well. He is not sure what to do. I will co robbie Janeen and then call him back. ...........................................Darlene haywood RN on 04/11/2014 at 11:55 documented in this encounter Plan of Treatment [...] | | | | | | [place] [address] | | | | | | [phone] | | | | | | | | +--------+ + + + + documented as of this encounter Visit Diagnoses Not on filedocumented in this encounter
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
--- OUTSIDE RECORDS SUMMARY | ~2020-06-07 | XMS | Encounter Summary ---
Demographics + + + | Address | [address] | | | [place] [address] | + + + | Home Phone [...] Providers + +------+ + | Care Registered Public Surveyor Name | Role | Phone | + +------+ + | Kirk French MD | PCP | | + +------+ + Reason for Visit + +--------+ + | Reason | Onset | Comments | | | Date | | + +--------+ + | Medication Orders | 05/03/ | | | | 2020 | | + +--------+ + Encounter Details +--------+ + + + + | Date | Type | Department | Care Team | Description | +--------+ + + + + | 05/03/ | Telephone | [facility] | Kirk French | Medication Orders | | 2019 | | [facility] | MD Brea [address] | | | | | [facility] [address] | | | | | [address] | [place] [address] | | | | | [place], [place] | [phone] | | | | | [address] | | | | | | [phone] | | | +--------+ + + + [...] this encounter Miscellaneous Notes Telephone Encounter - Kailyn Quintanilla - 05/03/2020 11:47 AM PDTPharmacy: Gregorio Fitzgerald, is calling regarding Medication Orders and is requesting the following: Medication requested: Lyrica 75 mg Quantity requested: 30 day supply If not a controlled substance, has patient called the pharmacy and checked that Rx is not a lready there: Yes Caller is aware of 24-48 hour wait time per refill policy: Yes documented in this encounter Plan of Treatment [...] [place] | | | | | | [place] [address] | | | | | | [phone] | | | | | | | | +--------+ + + + + documented as of this encounter Visit Diagnoses Not on filedocumented in this encounter"
--- OUTSIDE RECORDS SUMMARY | ~2020-06-07 | XMS | Encounter Summary ---
Demographics + + + | Address | [address] | | | [place] [address] | + + + | Home Phone [...] 2018 | | GASTROENTEROLOGY | [address] [place] | about prep for | | | | [address] [place] | [address] | procedure) | | | | [address] | [id number] | | | | | [address] | | | | | | [phone] | | | +--------+ + + + [...] Kaylynn Copeland RN - 12/24/2017 8:15 AM [email or web address] message return ing patient's call. P STTelephone Encounter - Nataly Pratt - 12/23/2017 4:01 PM PSTPatient called to [facility] for [facility]'s procedure. Please call patient back at home number [phone]. docum ented in this encounter Plan of [...] | | | | | | [place] [address] | | | | | | [phone] | | | | | | | | +--------+ + + + + documented as of this encounter Visit Diagnoses Not on filedocumented in this encounter"
--- OUTSIDE RECORDS SUMMARY | ~2020-06-07 | XMS | Encounter Summary ---
Demographics + + + | Address | [address] | | | [place] [address] | + + + | Home Phone [...] Team Providers + +------+ + | Care Group Leader Wafer Polishing Name | Role | Phone | + [...] + + | 12/21/ | Office | [facility] [place] | Hellberg, Geri, | Bradycardia (Primary | | 2012 | Visit | CARDIOLOGY [address] | FLAT SPRING ASSEMBLER [address] | Dx) | | | | [place], | [place], [place] | | | | | [place] [address] | [address] | | | | | [phone] | | | +--------+---------+ + + + [...] Sanchez Date: December 21, 2012 : 1960 Sample Cutter: PARISA Velazquez Device Talent Buyer: Medtronic Sense (mV) Impedance (?) Capture (V) Capture (ms) A Lead 4-5.6 423 1.5 0.09 RV Lead >31.36 539 2.0 0.09 LV Lead Battery Impedance (?): 301 Battery Voltage (V): 2.8 KS Interval (ms): 140 AR Interval (ms): 210 VA Conduction: Mode Switch Events: N/A % of time: -HAM PASSER: 0.6 AP-HAM PASSER: 1.3 -VS: 23.9 AP-VS: 74.2 HAM PASSER: Magnetic Rate: 85 LINDA: 65 LEAH: Current [...] | 10/30/ | Office | Cardiology | [facility], | | | 2019 | Visit | | PARISA [place] [address] | | | | | | [place], | | | | | | [place] [address] | | | | | | [phone] | | | | | | | [...]
--- OUTSIDE RECORDS SUMMARY | ~2020-06-07 | XMS | Encounter Summary ---
Demographics + + + | Address | [address] | | | [place] [address] | + + + | Home Phone [...] Team Providers + +------+ + | Care Evaporative Cooler Installer Name | Role | Phone | + +------+ + | Michael Amanda DO | PCP | | + +------+ + Reason for Visit +---------+--------+ + | Reason | Onset | Comments | | | Date | | +---------+--------+ + | Results | 06/26/ | | | | 2012 | | +---------+--------+ + Encounter Details +--------+ + + + + | Date | Type | Department | Care Team | Description | +--------+ + + + + | 06/26/ | Telephone | [facility] [place] [facility] | Jacek Holm, | Results | | 2012 | | MEDICINE [facility] | [address] | | | | | [address] | [place] | | | | | [place], [place] | [address] | | | | | [address] | | | | | | [phone] | | | +--------+ + + + [...] this encounter Miscellaneous Notes Telephone Encounter - Jacek Holm MD - 06/26/2013 6:07 PM PDTWill you please let Mr Sanchez know that his blood tests were normal - no signs of inflammation or thyroid disease. Thanks. documented in this encounter Plan of Treatment [...] | | | | | | [place] [address] | | | | | | [phone] | | | | | | | | +--------+ + + + + documented as of this encounter Visit Diagnoses Not on filedocumented in this encounter"
--- OUTSIDE RECORDS SUMMARY | ~2020-06-07 | XMS | Encounter Summary ---
Demographics + + + | Address | [address] | | | [place] [address] | + + + | Home Phone [...] Providers + +------+ + | Care Supervisor Soldering Name | Role | Phone | + +------+ + PCP | Unavailable | + +------+ + Encounter Details +--------+ + + + + | Date | Type | Department | Care Team | Description | +--------+ + + + + | 09/08/ | [facility] | [facility] | Naresh Mckeon | | | 1998 | Encounter | MED CTR SLEEP | MD Chaya [address] | | | | | CENTER [address] [place] | [place] | | | | | [place] | [place] [address] | | | | | [address] | [phone] | | | | | [phone] | | | +--------+ + + + [...] | | | | | | [place] [address] | | | | | | [phone] | | | | | | | | +--------+ + + + + documented as of this encounter Visit Diagnoses Not on filedocumented in this encounter"
--- OUTSIDE RECORDS SUMMARY | ~2020-06-07 | XMS | Encounter Summary ---
Demographics + + + | Address | [address] | | | [place] [address] | + + + | Home Phone [...] Team Providers + +------+ + | Care Plant Utilities Engineer Name | Role | Phone | + +------+ + | Kirk French MD | PCP | | + +------+ + Encounter Details +--------+---------+ + + + | Date | Type | Department | Care Team | Description | +--------+---------+ + + + | 12/24/ | Surgery | [facility] | Emmanuel Daniel MD | EGD | | 2018 | | MED CTR [facility] OP | [address], [place] | | | | | [address] | [address] [place], [place] | | | | | [place], [place] | [address] | | | | | [address] | | | | | | [phone] | | | +--------+---------+ + + + [...] + + + | Blood Pressure | 131/102 | 12/24/2017 11:45 AM | | | | | PST | | + + + + + | Pulse | 77 | 12/24/2017 11:45 AM | | | | | PST | | + + + + + | Temperature | 36.9 C (98.4 F) | 12/24/2017 11:45 AM | | | | | PST | | + + + + + | Respiratory Rate | 18 | 12/24/2017 11:45 AM | | | | | PST | | + + + + + | Oxygen Saturation | 97% | 12/24/2017 11:45 AM | | | [...] + + + +---------+ + + | [place]-3 Fatty | CAPS, one capsule by | [...] 1 capsule by | | 0 | 11/29/20 | | | (BENTYL) 10 mg | [...] encounter H&P Notes Emmanuel Daniel MD - 12/24/2017 1:13 PM PSTThe patient has no questions consent forms are signed we'll proceed with upper endoscopy colonoscopy mmanuel Daniel MD - 12/02/2017 2:30 PM PST [...] any noct urnal symptoms. He was in [facility] 2 years ago and required hospitalization [...] severe diarrhea probable infective occurring while visiting [facility] Diarrhea etiology and significance to be determined [...] Emmanuel Daniel 12/02/2017 documented in this encounter Miscellaneous Notes Op Note - Emmanuel Daniel MD - 12/24/2017 1:56 PM PSTUpper endoscopy was essentially withi n normal limits. Z line was intact at 40 cm. Gastric cavity appeared normal. H. pylori bi opsy was obtained duodenal mucosa appeared normal but biopsies were obtained for celiac spru e. Colonoscopy visually was within normal limits except for one small ulcer on the ileoceca l valve. There was another small ulcer in the terminal ileum. Biopsies were obtained of th e terminal ileum of the right colon. A small polyp was biopsy removed from the right colon. Left colon biopsies were also obtained as were stool studies. Patient will be discharged with follow-up possible further evaluation pending biopsy culture resultsElectronically sign ed by Emmanuel Daniel MD at 12/24/2017 1:58 PM PSTD-C Instructions Provation - Emmanuel Daniel MD - 12/24/2017 1:19 PM PSTDischarge Instructions for Upper Endoscopy Patient: Moe Sanchez : 1960 Acct: [id number] Exam Date: Sunday, December 24, 2017 Doctor: Emmanuel Daniel MD The chances of difficulty following this procedure are minimal. The following instructions will assist you in your recovery. 1. Do Not eat or drink anything for 1 hour. Try sips of water first. If tolerated, resume your regular diet or one recommended by your physician. 2. Do not drive, operate machinery, make critical decisions, or do activities that require coordination or balance for 24 hours. 3. You may experience a sore throat for 24 - 48 hours. You may use throat lozenges or gargle with warm salt water to relieve the discomfort. 4. Because air was put into your stomach druing the procedure, you may experience some belching. 5. Do not use any medication containing aspirin for 10 days, unless otherwise directed by your physician. 6. Sometimes the medications given to you druing the exam can aggravate the veins. The chemical irritation can cause inflammation or pain along the arm with redness, swelling and warmth. This does not mean there is an infection. You can treat the affected area by applying warm, wet compresses (towels) 4 times a day for 20 minutes at a time until inflammation is resolved 7. Report to your doctor: Chills and/or fever over 100 Persistent vomiting or vomiting with blood/nasal regurgitation Severe abdominal pain, other than gas cramps Severe chest pain Black, tarry stools You may reach your physician at Work: . If unable to reach your physician, call [facility] Emergency Department at [address]. [phone] Your doctor recommends these additional instructions: You have a contact number available for emergencies. The signs and symptoms of potential delayed complications were discussed with you. You may return to normal activities tomorrow. Written discharge instructions were provided to you. You are being discharged to home. Resume your previous diet today. Your physician has recommended a colonoscopy today. Continue your present medications. We are waiting for your pathology results. Return to your primary care physician as previously scheduled. Telephone your GI clinic for pathology results in one week. These instructions have been explained to the patient and/or escort. A copy has been given to the patient/escort. Nurse Signature Patient Signature Escort Signature Date Emmanuel Daniel MD 12/24/2017 2:01:38 PM This report has been signed electronically.Electronically signed by Emmanuel Daniel MD at 2:02 PM PSTD-C Instructions Provation - Emmanuel Daniel MD - 12/24/2017 1:17 PM P STDischarge Instructions for Colonoscopy Exams Patient: Moe Sanchez : 1960 Acct: [id number] Exam Date: Sunday, December 24, 2017 Doctor: Emmanuel Daniel MD You have had an examination of the gastrointestinal tract. The chances of difficulty following this procedure are minimal. The following instructions will assist you in your recovery. ACTIVITIES: Rest quietly until sedation wears off. DO NOT drive a motor vehicle or operate machinery for 24 hours after sedation. Be cautious making critical decisions for 24 hours after sedation. DIET: If throat has been sprayed, do not eat or drink for 1 hour after. Start with a swallow of tap water, if you experience any lack of sensation in your throat, wait another 30 - 60 minutes and start with water again. Once swallowing has returned to normal you may resume your usual diet unless otherwise instructed by your physician. DISCOMFORT: If you had a bowel exam, you may have some abdominal discomfort from the air put into your bowel during the exam. Moving about will help you pass this air. Sometimes the medications given to you during the exam can aggravate the veins. The chemical irritation can cause inflammation or pain along the arm with redness, swelling and warmth. This does not mean there is an infection. You can treat the affected area by applying warm,wet compresses (towels) 4 times a day for 20 minutes at a time until inflammation is resolved. REPORT TO YOUR DOCTOR: Unusual abdominal pain Chest pain or unusual shortness of breath Shoulder pain Nausea, vomiting Fever over 100 degrees, chills Signs of rectal bleeding (red or black stools) Any concern you have resulting from procedure You may reach your physician at Work: . If unable to reach your physician, call [facility] Emergency Department at Ext. [phone] Your doctor recommends these additional instructions: You have a contact number available for emergencies. The signs and symptoms of potential delayed complications were discussed with you. You may return to normal activities tomorrow. Written discharge instructions were provided to you. You are being discharged to home. Resume your previous diet today. Continue your present medications. We are waiting for your pathology results. Your physician has recommended a repeat colonoscopy for surveillance based on pathology results. Return to your primary care physician as previously scheduled. Telephone your GI clinic if symptoms are present. These instructions have been explained to the patient and/or escort. A copy has been given to the patient/escort. Nurse Signature Patient Signature Escort Signature Date Emmanuel Daniel MD 12/24/2017 2:06:33 PM This report has been signed electronically.Electronically signed by Emmanuel Daniel MD at 2:06 PM PSTdocumented in this encounter Plan of [...] [address] | | | | | | [address] [place], | | | | | | [place] [address] | | | | | | [phone] | | | | | | | [...] + | Performed at: 01 - [address] [address], | REFERENCE LAB | | [place], [place] [id number] Bankruptcy Manager: William Andrew MD, Phone: | [facility] | | [phone] | | + + + + + + + + | Performing | Address | City/State/Zipcode | Phone Number | | Organization | | | | + + + + + | REFERENCE LAB | [address] | [place], [place] | [phone] | | [facility] | [address] | [address] | | + + + + + [...] [address] | [place] | [phone] | | [facility] | | [address] | | | - LABORATORY | | [...] [address] | [place] | [phone] | | [facility] | | [address] | | | - LABORATORY | | [...] | | 1 | | | [facility] | | [...] [address] | [place] | [phone] | | [facility] | | [address] | | | - LABORATORY | | [...] + + | Performed at: 01 - [facility] [address] [address], | REFERENCE LAB | | [place], [place] [id number] Bankruptcy Manager: William Andrew MD, Phone: | [facility] | | [phone] | | + + + + + + + + | Performing | Address | City/State/Zipcode | Phone Number | | Organization | | | | + + + + + | REFERENCE LAB | [address] | [place], [place] | [phone] | | [facility] | Drive [facility] | [address] | | + + + + + [...] ST. | [address] | [place] | [phone] | | [facility] | | [address] | | | - LABORATORY | | [...] [address] | [place] | [phone] | | [facility] | | [address] | | | - LABORATORY | | [...] [address] | [place] | [phone] | | [facility] | | [address] | | | - LABORATORY | | [...] [address] | [place] | [phone] | | [facility] | | [address] | | | - LABORATORY | | [...] r pylori Ag | | | [facility] | | | | | | MEDICAL [...] ST. | [address] | [place] | [phone] | | [facility] | | [address] | | | - LABORATORY | | | | + + + + + EGD (12/24/2017 1:19 PM PST) + + | Specimen | + + | | + + + + -+ | Narrative | Performed At | + + -+ | | [facility] | | GastroenterologyPatient Name: Moe SanchezProcedure Date: 12/24/2017 | [facility] | | 1:19 PMMRN: [id number] #: [id number] of : | | | 9Admit Type: AmbulatoryAge: 57Room: [facility] 01Gender: MaleNote | | | Status: FinalizedAttending MD: Emmanuel Daniel , [facility]rocedure: | | | Upper GI endoscopyIndications: Diarrhea, Weight | | | lossProviders: Emmanuel Daniel MD, Maria Isabel Morris RN, | | | Kim Hicks, Claims Clerk, [place] | | | Sapna Barakat MD (Anesthesia Staff)Referring MD: Kirk Valdes | | | Manolo (Referring )Medicines: Propofol per | | | AnesthesiaComplications: No [...] the anesthesiologist and | | | the biomedical equipment technician in the endoscopy suite. Mental Status [...] PMScope Out: 1:31:13 PM | | | [facility], [address] [facility] | | | [place] [address] | | | - Discharge patient to [...] |Scope Out: 1:31:13 PM | | | [facility], [address], [place] | | | [address] | | + + -+ + +---------+ + + | Performing | Address | City/State/[facility]code | Phone Number | | Organization | | | | + +---------+ + + | [facility] | | | | + +---------+ + + COLONOSCOPY (12/24/2017 1:17 PM PST) + + | Specimen | + + | | + + + + -+ | Narrative | Performed At | + + -+ | | [facility] | | GastroenterologyPatient Name: Moe SanchezProcedpasha Date: 12/24/2017 | [facility] | | 1:17 PMMRN: [id number] #: [id number] of : | | | 9Admit Type: AmbulatoryAge: 57Room: [facility] 01Gender: MaleNote | | | Status: FinalizedAttending MD: Emmanuel Daniel , MDProcedure: | | | ColonoscopyIndications: Clinically significant diarrhea of | | | unexplained originProviders: Emmanuel Daniel MD, Maria Isabel | | | Arturo, RN, Kim Hicks, Claims Clerk, | | | Jarett Barakat MD (Anesthesia [...] | | | the anesthesiologist and the biomedical equipment technician in the endoscopy suite. | | [...] Scope In: 1:32:55 PMScope Out: 1:48:57 PM [facility] | | | [facility], [address] [place] [address] | | | [phone] | | | - Await pathology results. [...] |Scope Out: 1:48:57 PM | | | [facility], [address] [place] | | | [address] | | + + -+ + +---------+ [...] | colonic mucosa with focal adenomatous change. CLR:[facility]:C2NR | | | GROSS DESCRIPTION: Received in four parts. A. Received in | | | formalin labeled "Freddie Nelson" and labeled "duodenal bx" on | | | the requisition are six pink-lin tissue fragments measuring from | | | 0.3-0.8 cm submitted, all in (A1). B. Received in formalin labeled | | | "Moe Laura, C." and labeled "B, left colon bx" on the | | | requisition are five pink-lin tissue fragments measuring from 0.2-09.9 | | | cm, submitted, all in (B1). C. Received in formalin labeled | | | "Moe Laura, D." and labeled "C, bx TI" on the requisition are | | | six matias-pink and lin colored tissue fragments measuring from 0.5 cm, | | | submitted, all in (C1). D. Received in formalin labeled "Moe | | | Laura, E. ASC" and labeled "D. ascending colon bx" on the | | | requisition are nine pink-lin tissue fragments measuring from 0.15-0.5 | | | cm, submitted, all in (D1). ka:CLR:[facility] ADDITIONAL NOTES: | | | Immunohistochemical studies were performed on this case with the | | | appropriate positive controls that react as expected. This test was | | | developed and its performance characteristics determined by [facility] | | | [facility]. It has not been cleared or approved by the U.S. Food | | | and Drug Administration. The FDA has determined that such clearance | | | or approval is not necessary. This test is used for clinical | | | purposes. It should not be regarded as investigational or for | | | research. [facility] is certified under the Clinical | | | Laboratory Improvement Amendments of 1988 (CLIA) as qualified to | | | perform high complexity clinical laboratory testing. This assay | | | has not been validated for specimens that have been decalcified. | | | PERFORMING LABORATORY: Tissue processing and slide preparation were | | | performed by [facility], [address], [facility] | | | [place] [address] (Record Label Intern: Evan Frausto M.D. CLIA#: | | | [id number]). Professional interpretation was performed by [facility] | | | [facility], [address], [place] [address] | | | (Record Label Intern: Evan Frausto M.D.; CLIA#: [id number]). | | | Diagnostician: Rafael Bales MD [...]
--- OUTSIDE RECORDS SUMMARY | ~2020-06-07 | XMS | Encounter Summary ---
Demographics + + + | Address | [address] | | | [place] [address] | + + + | Home Phone [...] Team Providers + +------+ + | Care Case Briefer Name | Role | Phone | + +------+ + | Michael Amanda DO | PCP | | + +------+ + Reason for Visit + +--------+ + | Reason | Onset | Comments | | | Date | | + +--------+ + | Chest Pain | 02/27/ | Patient having chest pain | | | 2013 | | + +--------+ + Encounter Details +--------+ + + + + | Date | Type | Department | Care Team | Description | +--------+ + + + + | 02/27/ | Telephone | [facility] [place] | Silvia, | Chest Pain (Patient | | 2013 | | CARDIOLOGY [address] | Janeen [employer] COUNSELOR [address] | having chest pain) | | | | [place], | [place], | | | | | [place] [address] | [place] [address] | | | | | [phone] | [phone] | | | | | | | [...] this encounter Miscellaneous Notes Telephone Encounter - Maira Jackman Master of Arts - 02/27/2014 2:57 PM PDTPatient called to let us know he has been having chest pain and shortness of breath since right afte r lunch, he took one nitro and this made him dizzy and the chest pain has not subsided at al l. He is under a lot of stress with the passing of his mother. He has been advised to go dir ectly to the E.R. Or call 911. He has chosen to have his take him to the E.R. He has a n appointment on 03/07/14 with Janeen Ramirez, ARNP documented in this encounter Plan of Treatment [...] | | | | | | [place] [address] | | | | | | [phone] | | | | | | | | +--------+ + + + + documented as of this encounter Visit Diagnoses Not on filedocumented in this encounter"
--- OUTSIDE RECORDS SUMMARY | ~2020-06-07 | XMS | Encounter Summary ---
Demographics + + + | Address | [address] | | | [place] [address] | + + + | Home Phone [...] Team Providers + +------+ + | Care Foreman/[employer] Name | Role | Phone | + +------+ + | Kirk French MD | PCP | | + +------+ + Reason for Visit +--------+--------+ + | Reason | Onset | Comments | | | Date | | +--------+--------+ + | Other | 04/10/ | | | | 2018 | | +--------+--------+ + Encounter Details +--------+ + + + + | Date | Type | Department | Care Team | Description | +--------+ + + + + | 04/10/ | Telephone | [facility] [place] [facility] | Matthew Uriarte | Other | | 2019 | | [address] | MD [place] [address] | | | | | [place] | [address] [place] | | | | | [address] | [address] | | | | | [phone] | | | +--------+ + + + [...] Encounter - Kira Montoya RN - 04/11/2019 1:53 PM Irasema Uriarte notified . [facility] - 04/10/2019 2:30 PM PDTCalled Amilcar back and he is getting his labs drawn now. His pain has subsided some since this morning when it was 10 out of 10 and h is urine is yellow now. He thinks he has passed the 7 mm stone (or is passing it). Denies fe mauricio or chills. He will go to ER if pain management needed or if he develops a fever or chill s, otherwise, he'll see Dr Uriarte morning in [facility] as scheduled. Electronical ly signed by Kira Montoya RN at 04/10/2019 2:33 PM PDTTelephone Encounter - Renetta Sanchez - 04/10/2019 1:31 PM PDTRETURNED VM PATIENT HAD LEFT, PATIENT STATES HE IS MORTON VING A LOT OF ABDOMIN PAIN, WAS EXPERIENCING DARK BLOOD WHEN HE WOULD GO TO THE RESTROOM THI S MORNING 04-10-19 BUT IT IS MOSTLY CLEAR NOW. PATIENT ALSO STATES THAT HE NEEDS TO URINATE E VERY 5 MINUTES. PATIENT STATED HE MIGHT GO TO THE ER HE IS IN SO MUCH PAIN BUT HE WOULD L PRERNA A CALL BACK FROM DR. FIGUEROA NURSE. PLEASE ADVISE AT [phone].Electronically sign ed by Renetta Dewitt at 04/10/2019 1:37 PM PDTdocumented in this encounter Plan of [...] | | | | | | [place] [address] | | | | | | [phone] | | | | | | | | +--------+ + + + + documented as of this encounter Visit Diagnoses Not on filedocumented in this encounter"
--- OUTSIDE RECORDS SUMMARY | ~2020-06-07 | XMS | Encounter Summary ---
Demographics + + + | Address | [address] | | | [place] [address] | + + + | Home Phone [...] Team Providers + +------+ + | Care Coagulation Operator Name | Role | Phone | [...] + + | 05/30/ | Telephone | [facility] | Kirk French | Medication Reaction | | 2019 | | [facility] | MD Bre[address] | | | | | [facility] [address] | | | | | [address] | [place] [address] | | | | | [place], [place] | [phone] | | | | | [address] | | | | | | [phone] | | | +--------+ + + + [...] reaction to Lyrica. Please call him at [phone]. If this is a symptom based call, was patient offered triage? Not Applicable If this is a symptom based call and you were unable to immediately transfer the call to a lorraine bellamy test desk operator was caller made aware that if at [...] | | | | | | [place] [address] | | | | | | [phone] | | | | | | | | +--------+ + + + + documented as of this encounter Visit Diagnoses Not on filedocumented in this encounter"
--- OUTSIDE RECORDS SUMMARY | ~2020-06-07 | XMS | Encounter Summary ---
Demographics + + + | Address | [address] [place] [address] CALEB LOZANO | | | [place] [address] | + + + | Home Phone [...] [place] | | | | | [address] | | + + + + + Care Team Providers + +------+ + | Care Database Management System Specialist Name | Role | Phone | [...] Chest pain | Farooq Almaguer, | [address] | | | | | Bradycardia | DO [address] | | | | | Procedures | Yao Booth | [facility] | | | | | | [facility] | Health and | | | | | TRANSTHORACI | [facility] [place] | Healing, | | | | | C | [address] | Building 1 | | | | | ECHOCARDIOGR | Phone: | [place], [place] | | | | | AM, ADULT | [phone] | [address] | | | | | | Fax: | Phone: | | | | | | [phone] | [phone] | +--------+--------+ + + + + Reason [...] | | | | | | | [place] [address] | | | | | | | Phone: | | | | | | | [phone] | | | | | | | Fax: | | | | | | | [phone] | | +--------+--------+ + + + + Encounter Details +--------+---------+ + + + | Date | Type | Department | Care Team | Description | +--------+---------+ + + + | 02/03/ | Office | Cardiology General | Arlette Drew, | Chest pain (Primary | | 2010 | Visit | at [facility] [address] | MD | Dx); Bradycardia; | | | | [facility] | | Pacemaker | | | | Health and Healing, | | | | | | Building | | | | | | [place], [place] | | | | | | [address] | | | | | | [phone] | | | +--------+---------+ + + + [...] per Dr. Drew's note. Farooq Jamil DO Patient Access Specialist Clinical co founder and ceo/ Division of Cardiovascular Medicine asonrussell Yajaira, RN - 02/09/2011 12:59 PM PDT PACEMAKER HISTORY Primary Care Provider: Darion Holden DO [employer]: Arlette Drew MD Moe Sanchez is a [...] chamber permanent pacemaker implantation on 06/14/09 in [place], Chronic smoker, mild DIDIER, bip olar disorder with anxiety who presents for second opinion regarding his syncopal episodes. Pt. started noticing dizzy spells and episodes of syncope about 3 years ago , pacemaker was put at the recommendation of [employer] Dr. Singletary from [place]. [place]. Pt. states lala bhatti was put>1 [...] CATH: ? Normal study per patient ? . Labs: No results found for this [...] form tilt table testing but NA at [facility] May need to involve endocrine and [...] Dr. Omero DREW MD CARDIOLOGY - GENERAL [address] Mailcode: Ch9a [facility], 9th Floor [facility] [address] documented in this en counter Plan of [...] | 2.10 | 0.34 - 5.60 | [facility] | | | | | uIU/ml | REGIONAL | | | | | | LABORATORY | | + +-------+ + + + + + | Specimen | + + | Blood - Blood | + + + + + | Narrative | Performed At | + + + | [facility]) | [facility] | | [facility] [address] | REGIONAL | | [place] [address] | LABORATORY | + + + + + + + + | Performing | Address | City/State/Zipcode | Phone Number | | Organization | | | | + + + + + | [facility] | [address] | [place] [address] | | | LABORATORY | | | | + + + + + CORTISOL, SERUM (02/03/2011 4:08 PM PDT) + + + + + + | Component | Value | Ref Range | Performed | Pathologist | | | | | At | Signature | + + + + + + | CORTISOL, | 7.3 | ug/dl | [facility] | | | TOTAL SERUM | | | REGIONAL | | | | | | LABORATORY | | + + + + + + | TIME | NA | Hrs:mins | [facility] | | | | | | REGIONAL | | | | | | LABORATORY | | + + + + + + | SITE | None Given | | [facility] | | | | | | REGIONAL | | | | | | LABORATORY | | + + + + + + + + | Specimen | + + | Blood - Blood | + + + + + | Narrative | Performed At | + + + | Cortisol Reference Ranges | [facility] | | AM Reference Range: 7.0 - 23.0 ug/dl | REGIONAL | | PM Reference Range: Less than 10.0 ug/dl | LABORATORY | | [facility] ([address] [facility]) | | | [place] [address] | | | [address] [place] [facility] [place] [address] | | + + + + + + + + | Performing | Address | City/State/Zipcode | Phone Number | | Organization | | | | + + + + + | [facility] | [address] | [place] [address] | | | LABORATORY | | | [...] | | | DEPARTMENT | | | [place] | | | OF | | | [...] | + + + + + | [facility] DEPARTMENT | [address] | [place] [address] | | | PATHOLOGY | [address] [...] DEPT OF | [address] | [place], [place] | | | CARDIOLOGY | [address] | [address] | | + + + + + [...] DEPT OF | [address] | [place], [place] | | | CARDIOLOGY | [address] | [address] | | + + + + + [...] view image for the detailed interpretation from Chef results. | CARDIOLOGY | + + + + + + + + | Performing | Address | City/State/Zipcode | Phone Number | | Organization | | | | + + + + + | [facility] DEPT OF | [address] | [place], [place] | | | CARDIOLOGY | [address] | [address] | | + + + + + documented in this encounter Visit Diagnoses + + | Diagnosis | + + | Chest pain - Primary Chest pain, unspecified | + + | Bradycardia Other specified cardiac dysrhythmias | + + | Pacemaker Cardiac pacemaker in situ | + + documented in this encounter
--- OUTSIDE RECORDS SUMMARY | ~2020-06-07 | XMS | Encounter Summary ---
Demographics + + + | Address | [address] | | | [place] [address] | + + + | Home Phone [...] | + + +---------+ + | Nadine Teetee | ECON | Unknown | | + + +---------+ + Care Team Providers + +------+ + | Care Oracle Soa Developer Name | Role | Phone | + +------+ + | Kirk French MD | PCP | | + +------+ + Encounter Details +--------+ + + + + | Date | Type | Department | Care Team | Description | +--------+ + + + + | 09/19/ | Orders Only | [facility] | Hellberg, Geri, | Pacemaker | | 2015 | | CARDIOLOGY [address] | HEARING THERAPIST [address] | reprogramming/check | | | | [place], | [place], [place] | DO NOT DELETE | | | | [place] [address] | [address] | (Primary Dx); | | | | [phone] | | Pacemaker - | | | [...] | | | | | | [place] [address] | | | | | | [phone] | | | | | | | [...] | | 2. Coronary artery disease involving zuni coronary artery of | | | zuni heart without angina pectoris I25.10 414.01 ECHO [...]
--- OUTSIDE RECORDS SUMMARY | ~2020-06-07 | XMS | Encounter Summary ---
Demographics + + + | Address | [address] | | | [place] [address] | + + + | Home Phone [...] Providers + +------+ + | Care Product Line Manager Name | Role | Phone | + +------+ + | Kirk French MD | PCP | | + +------+ + Encounter Details +--------+ + + + + | Date | Type | Department | Care Team | Description | +--------+ + + + + | 01/21/ | Anesthesia | [facility] | Jarett Barakat | | | 2020 | Event | MED CTR MP INTRA OP | P, [address] | | | | | [address] | [place], [place] | | | | | [place], [place] | [address] | | | | | [address] | | | | | | [phone] | | | +--------+ + + + [...] EVALUATION Moe Sanchez 59 y.o. male 1960 [id number] Procedure(s): COLONOSCOPY (N/A Rectum) Review of Systems [...] Preventative health care Coronary artery disease involving atka coronary artery of atka heart without angina pectoris Marijuana use [facility] [...] | | | | | | [place] [address] | | | | | | [phone] | | | | | | | | +--------+ + + + + documented as of this encounter Visit Diagnoses Not on filedocumented in this encounter
--- OUTSIDE RECORDS SUMMARY | ~2020-06-07 | XMS | Encounter Summary ---
Demographics + + + | Address | [address] [place] [address] CAL[address] LOZANO | | | [place] [address] | + + + | Home Phone [...] + + + | Author | [facility] | + + + | Organization | [facility] | + + + | Address | Unknown | + + + | Phone | Unavailable | + + + Support + + + + + | Name | Relationship | Address | Phone | + + + + + | Rachel Valencia | ELIEZER | [place] | | | | | [address] | | + + + + + [...] | | | | l weight | [place], [place] | | | | | | loss | [address] | | | | | | Procedures | Phone: | | | | | | CONSULT TO | [phone] | | | | | | NON - [facility] | Fax: | | | | | | PROVIDER | [phone] | | | | | | CONSULT [...] | 2019 | | Center at [facility] [address] | MD [address] | change location of | | | | [address] | [place], [place] | referral ) | | | | for Health and | [address] | | | | | [place] [address] | [phone] | | | | | [place], [place] | | | | | | [address] | | | | | | [phone] | | | +--------+ + + + [...]
--- OUTSIDE RECORDS SUMMARY | ~2020-06-07 | XMS | Encounter Summary ---
Demographics + + + | Address | [address] [place] [address] CALEB LOZANO | | | [place] [address] | + + + | Home Phone [...] [place] | | | | | [address] | | + + + + + Care Team Providers + +------+ + | Care Granulating Blender Name | Role | Phone | [...] | | | | | Unintentiona | [place], [place] | | | | | | l weight | [address] | | | | | | loss | Phone: | | | | | | Procedures | [phone] | | | | | | CONSULT TO | Fax: | | | | | | NON - IVETTE | [phone] | | | | | | PROVIDER [...] | | 2019 | | Center at [facility] [address] | MD [address] | normal, recommend | | | | [address] | [place], [place] | hyoscyamine) | | | | for Health and | [address] | | | | | [facility] 2 | [phone] | | | | | [facility] [place] | | | | | | [address] | | | | | | [phone] | | | +--------+ + + + [...]
--- OUTSIDE RECORDS SUMMARY | ~2020-06-07 | XMS | Encounter Summary ---
Demographics + + + | Address | [address] | | | [place] [address] | + + + | Home Phone [...] Team Providers + +------+ + | Care City Driver Name | Role | Phone | + +------+ + | Kirk French MD | PCP | | + +------+ + Encounter Details +--------+ + + + + | Date | Type | Department | Care Team | Description | +--------+ + + + + | 01/05/ | Orders Only | [facility] | Emmanuel Daniel MD | | | 2019 | | [facility] | [address], [place] | | | | | PATHOLOGY [address] | [address] [facility] [place] | | | | | [address]VD [place], [place] | [address] | | | | | [address] | | | | | | [phone] | | | +--------+ + + + [...] | | | | | | [place] [address] | | | | | | [phone] | | | | | | | [...] | | | (atherosclerotic heart disease of chitimacha coronary artery without | | | angina [...] chronic or | | | microscopic colitis. [facility]:C3NR GROSS DESCRIPTION: A. The | | | specimen, labeled "Wilson, duodenal biopsy" is received in formalin | | | and consists of seven 0.1-0.5 cm lin fragments. Entirely submitted in | | | (A1). B. The specimen, labeled "Wilson, right colon" is received | | | in formalin and consists of six 0.2-0.3 cm lin fragments. Entirely | | | submitted in (B1). C. The specimen, labeled "Wilson, left colon" | | | is received in formalin and consists of six 0.2-0.3 cm lin-pink | | | fragments. Entirely submitted in (C1). am:LEWIS:portillo PERFORMING | | | LABORATORY: The technical component was performed by [employer] | | | Diagnostics, [address] [facility] [address] (Facilities Operations Technician: | | | Kailey Stafford MD; CLIA# [id number]). Professional interpretation was | | | performed by [facility], [facility], [address] | | [place] [address] (Facilities Operations Technician: Ishaan | | | Anthony Dao; CLIA#: [id number]). Diagnostician: Ishaan Dao | | | Pathologist [...]
--- OUTSIDE RECORDS SUMMARY | ~2020-06-07 | XMS | Encounter Summary ---
Demographics + + + | Address | [address] | | | [place] [address] | + + + | Home Phone [...] Providers + +------+ + | Care Infrastructure Consultant Name | Role | Phone | + +------+ + PCP | Unavailable | + +------+ + Encounter Details +--------+ + + + + | Date | Type | Department | Care Team | Description | +--------+ + + + + | 12/05/ | Hospital | [facility] GENERIC OP | Conversion | | | 2002 | Encounter | CONVERSION | Transaction, | | | | | DEPARTMENT [address] | Provider Unknown | | | | | [address] | | | | | | [place], [place] | (Fax) | | | | | [address] | | | | | | [phone] | | | +--------+ + + + [...] | | | | | | [place] [address] | | | | | | [phone] | | | | | | | | +--------+ + + + + documented as of this encounter Visit Diagnoses Not on filedocumented in this encounter"
--- OUTSIDE RECORDS SUMMARY | ~2020-06-07 | XMS | Encounter Summary ---
Demographics + + + | Address | [address] | | | [place] [address] | + + + | Home Phone [...] Providers + +------+ + | Care Group Managing Director Name | Role | Phone | + +------+ + | Kikr French MD | PCP | | + [...] | CARDIOLOGY [address] | [address] | Interrogation | | | | [place], | [place], | (Primary Dx); | | | | [place] [address] | [place] [address] | Presence of | | | | [phone] | [phone] | permanent cardiac | | | | [...] as of this encounter Procedure Notes Daljit Sinlgetary MD - 11/20/2019 11:59 PM PSTAssociated Order(s): DEVICE INTERROGATION- R EMOTEProcedure(s): DEVICE INTERROGATION- REMOTEPre-Procedure Diagnose(s): Pacemaker reprogra mming/check; Presence of permanent cardiac pacemaker; Sinoatrial node dysfunction (HCC)Date of Remote Interrogation: 09/06/2019 Refer to Paceart documentation and remote PDF scanned into [employer] for remote interrogation re sults. Data collected by Shabana Lama, RN, RN Presenting rhythm: Sinus tachycardia, atrial sensed ventricular sensed with rate 104-112 b eats. 1 mode switch episodes accounting for <0.1% of the time. No episodes. PVC singles 466 PVC singles 155/month PVC runs 5 PVC runs 2/month Histogram fair. Battery longevity 17 months. Apparent normal and stable device function. Device interrogation due in office August 2019. Patient notified via voice message. documented in this encounter Plan of Treatment [...] | | | | | | [place] [address] | | | | | | [phone] | | | | | | | [...] remote PDF scanned into | | | [facility] for remote interrogation results. Data collected [...]
--- OUTSIDE RECORDS SUMMARY | ~2020-06-07 | XMS | Encounter Summary ---
Demographics + + + | Address | [address] | | | [place] [address] | + + + | Home Phone [...] Providers + +------+ + | Care Machine Cleaner Name | Role | Phone | [...] + + | 04/24/ | Office | [facility] | [place], | Symptomatic PVCs | | 2012 | Visit | CARDIOLOGY [address] | [place] [place] [address] | (Primary Dx); CAD; | | | | [place], | [place], | Hyperlipidemia; | | | | [place] [address] | [place] [address] | PACEMAKER, PERMANENT | | | | [phone] | [phone] | - [employer] | | | | [...] for ablation despite large amounts of sedation. Abdoul wynn was scheduled to go back in [...] tablet by mouth Daily. 30 tablet 6 [facility]-3 Fatty Acids (SALMON OIL-1000 PO) CAPS, one [...] records from PCP and notes from [facility]. Assessment: 1. Symptomatic PVCs status post ablation: [...] ventricular arrhythmia performed by Dr. Gambino at [facility] on 01/30/2013. Patient had spontaneous PVCs [...] to go back in 3 days to [place] for an attempt of ablation under general [...] He is upgraded to class I of [place] Heart [employer] functional class. There are no [...] made to ensure accuracy; however, inadvertent computerized wardrobe mistress errors may be pre sent. documented in [...] | | | | | | [place] [address] | | | | | | [phone] | | | | | | | | +--------+ + + + + documented as of this encounter Visit Diagnoses + + | Diagnosis | + + | Symptomatic PVCs - Primary Other premature beats | + + | CAD Coronary atherosclerosis of unspecified type of vessel, false pass or graft | + + | Hyperlipidemia Other and unspecified hyperlipidemia | + + | PACEMAKER, PERMANENT - [employer] 06/14/09GRANT Cardiac pacemaker in situ | + + documented in this encounter
--- OUTSIDE RECORDS SUMMARY | ~2020-06-07 | XMS | Encounter Summary ---
Demographics + + + | Address | [address] [place] [address] [address] LOZANO | | | [place] [address] | + + + | Home Phone | | + + + | Preferred Language | Unknown | + + + | Marital Status | | + + + | Voodoo Affiliation | Unknown | + + + [...] [place] | | | | | [address] | | + + + + + Care Team Providers + +------+ + | Care Fashion Marketer Name | Role | Phone | [...] | 2019 | | [facility] | MD [address] | diarrhea; sent to | | | | [address] | [place], [place] | ED) | | | | for Health and | [address] | | | | | [facility], [facility] 2 | [phone] | | | | | [place], [place] | | | | | | [address] | | | | | | [phone] | | | +--------+ + + + [...]
--- OUTSIDE RECORDS SUMMARY | ~2020-06-07 | XMS | Encounter Summary ---
Demographics + + + | Address | [address] | | | [place] [address] | + + + | Home Phone [...] Providers + +------+ + | Care Outreach Rep Name | Role | Phone | [...] 2018 | | GASTROENTEROLOGY | [address], [place] | | | | | [address] [place] | [address] [place], [place] | | | | | [address] [place], [place] | [address] | | | | | [address] | | | | | | [phone] | | | +--------+ + + + [...] | | | | | | [place] [address] | | | | | | [phone] | | | | | | | | +--------+ + + + + documented as of this encounter Procedures + +--------+ + + + | Procedure Name | Priori | Date/Time | Associated Diagnosis | Comments | | | ty | | | | + +--------+ + + + | EXTERNAL LAB: BUN | Routin | 10/18/2017 | | Results [...] +-------+ + + + | BUN, | 10 | 8 - 25 | [...]
--- OUTSIDE RECORDS SUMMARY | ~2020-06-07 | XMS | Encounter Summary ---
Demographics + + + | Address | [address] | | | [place] [address] | + + + | Home Phone [...] Team Providers + +------+ + | Care Hepatology Physician Name | Role | Phone | + +------+ + PCP | Unavailable | + +------+ + Encounter Details +--------+ + + + + | Date | Type | Department | Care Team | Description | +--------+ + + + + | 09/13/ | [facility] | [facility] | Jonathan, | | | 2009 | Encounter | MED CTR EMERGENCY | Martell Cr MD [address] | | | | | CENTER [address] | [address] | | | | | [place] | [place] [address] | | | | | [address] | [phone] | | | | | [phone] | | | +--------+ + + + [...] | | | | | | [place] [address] | | | | | | [phone] | | | | | | | | +--------+ + + + + documented as of this encounter Visit Diagnoses Not on filedocumented in this encounter"
--- OUTSIDE RECORDS SUMMARY | ~2020-06-07 | XMS | Encounter Summary ---
Demographics + + + | Address | [address] [place] [address] [address] LOZANO | | | [place] [address] | + + + | Home Phone | | + + + | Preferred Language | Unknown | + + + | Marital Status | | + + + | Adventism Affiliation | Unknown | + + + | Race | White | + + + | Ethnic Group | Not or | + + + Author + + + | Author | [facility] | + + + | Organization | [facility] | + + + | Address | Unknown | + + + | Phone | Unavailable | + + + Support + + + + + | Name | Relationship | Address | Phone | + + + + + | Rachel Valencia | ELIEZER | [place] | | | | | [address] | | + + + + + Care Team Providers + +------+ + | Care Analytical Statistician Name | Role | Phone | [...] | [facility] | Bridgette Rios, | Refill Request | | 2019 | | Center at [facility] [address] | MD [address] | | | | | [address] | [place], [place] | | | | | [facility] Health and | [address] | | | | | [facility], [facility] 2 | [phone] | | | | | [place], [place] | | | | | | [address] | | | | | | [phone] | | | +--------+ + + + [...]
--- OUTSIDE RECORDS SUMMARY | ~2020-06-07 | XMS | Encounter Summary ---
Demographics + + + | Address | [address] | | | [place] [address] | + + + | Home Phone [...] + +------+ + | Care Director Of Accounting Name | Role | Phone | + [...] | CARDIOLOGY [address] | [address] | Interrogation | | | | [place], | [place], | (Primary Dx); | | | | [place] [address] | [place] [address] | Pacemaker; | | | | [phone] | Sinoatrial node | | | | [...] Paceart documentation and remote PDF scanned into [employer] for remote interrogation re sults. Data collected [...] | | | | | | [place] [address] | | | | | | [phone] | | | | | | | [...] remote PDF scanned into | | | [facility] for remote interrogation results. Data collected [...] + + | Performing | Address | City[facility] | Phone Number | | Organization [...]
--- OUTSIDE RECORDS SUMMARY | ~2020-06-07 | XMS | Encounter Summary ---
Demographics + + + | Address | [address] [place] [address] [address] LOZANO | | | [place] [address] | + + + | Home Phone | | + + + | Preferred Language | Unknown | + + + | Marital Status | | + + + | Catholic Affiliation | Unknown | + + + | Race | White | + + + | Ethnic Group | Not or | + + + Author + + + | Author | [facility] | + + + | Organization | [facility] | + + + | Address | Unknown | + + + | Phone | Unavailable | + + + Support + + + + + | Name | Relationship | Address | Phone | + + + + + | Rachel Valencia | ELIEZER | [place] | | | | | [address] | | + + + + + Care Team Providers + +------+ + | Care Regional Sales Trainer Name | Role | Phone | [...] | | 2020 | | Center at [facility] [address] | [facility] | (capsule referral) | | | | [facility] | Road [place], [place] | | | | | for Health and | [address] | | | | | [facility] 2 | | | | | | [place], [place] | | | | | | [address] | | | | | | [phone] | | | +--------+ + + + [...]
--- OUTSIDE RECORDS SUMMARY | ~2020-06-07 | XMS | Encounter Summary ---
Demographics + + + | Address | [address] | | | [place] [address] | + + + | Home Phone [...] Team Providers + +------+ + | Care Airframe Technical Officer Name | Role | Phone [...] + + | 02/15/ | Office | [facility] | Jay Cohn PA | DIDIER (obstructive | | 2012 | Visit | SLEEP DISORDER [address] | [address] | sleep apnea) | | | | [address] [place] | [place] | (Primary Dx) | | | | [place] [address] | [address] | | | | | [phone] | | | +--------+---------+ + + + [...] AM PDTGo to [facility] including: Nasal pillows or [...] pillows obtained from: [facility] [place] pressure is: 13 cm CPAP download shows [...] to go to [facility] [place] to replace his equipment, but it had [...] to go to [facility] [place] to g et a new mask and filter. He is to work toward wearing his CPAP 100% of the time he is asle ep. I will follow up again in 1 month, sooner prn. Fifteen minutes were spent [id number], wi th the majority of time spent [...] | | | | | | [place] [address] | | | | | | [phone] | | | | | | | | +--------+ + + + + documented as of this encounter Visit Diagnoses + + | Diagnosis | + + | DIDIER (obstructive sleep apnea) - Primary Obstructive sleep apnea (adult) (pediatric) | + + documented in this encounter"
--- OUTSIDE RECORDS SUMMARY | ~2020-06-07 | XMS | Encounter Summary ---
Demographics + + + | Address | [address] | | | [place] [address] | + + + | Home Phone [...] Team Providers + +------+ + | Care Design Center Consultant Name | Role | Phone | [...] [address] | | | | | [address] | [place] [address] | | | | | [phone] | [phone] | | | | | | | [...] | | | | | | [place] [address] | | | | | | [phone] | | | | | | | [...]
--- OUTSIDE RECORDS SUMMARY | ~2020-06-07 | XMS | Encounter Summary ---
Demographics + + + | Address | [address] | | | [place] [address] | + + + | Home Phone [...] Team Providers + +------+ + | Care Pullman Car Clerk Name | Role | Phone | [...] | | Conversion Location | [address] | | | | | TRACIE TINEO [facility] | [address] [place], [place] [address], | | | | | [place], [place] | [place] [address] | | | | | [address] | [phone] | | | | | [phone] | | | +--------+ + + + [...] | | | | | | [place] [address] | | | | | | [phone] | | | | | | | | +--------+ + + + + documented as of this encounter Visit Diagnoses Not on filedocumented in this encounter"
--- OUTSIDE RECORDS SUMMARY | ~2020-06-07 | XMS | Encounter Summary ---
Demographics + + + | Address | [address] | | | [place] [address] | + + + | Home Phone [...] Team Providers + +------+ + | Care Analyst Business Analysis Name | Role | Phone | + +------+ + | Kirk French MD | PCP | | + +------+ + Reason for Visit +--------+--------+ + | Reason | Onset | Comments | | | Date | | +--------+--------+ + | Other | 08/19/ | patient having issues with high blood pressure | | | 2015 | | +--------+--------+ + Encounter Details +--------+ + + + + | Date | Type | Department | Care Team | Description | +--------+ + + + + | 08/19/ | Telephone | [facility] | Silvia, | Other (patient | | 2016 | | CARDIOLOGY [address] | PARISA [place] [address] | having issues with | | | | [place], | [place], | high blood pressure) | | | | [place] [address] | [place] [address] | | | | | [phone] | [phone] | | | | | | | [...] this encounter Miscellaneous Notes Telephone Encounter - Nereida Lambert - 08/24/2016 12:52 PM PDTPatient called back and sched uled on 09-01-16 at 915 with Janeen Ramirez. Electronically signed by Nereida Lambert at 08/24 12:53 PM PDTTelephone Encounter - Telma Mccoy - 08/24/2016 10:02 AM PDTLeft for patient to return our call and schedule appt soon with MASONR elephone Encounter - Nereida Lambert - 08/20/2016 9:42 AM PD TCalled patient to schedule follow up. No answer, left a voicemail message for patient to ca ll back. elephone Darlene Edward RN - 08/19/2016 3:10 PM PDTFrousmane called to report that he returned danyell e Wednesday from [facility]. He reports that his blood pressure has been running high for about 3 weeks. He is starting to get concerned and wonders what he should do. He is running in the range of 160/110 and 134/102, he feels bad with it and feels like his heart is going to jum p out of his chest. He is advised to check bp log and bring that to his next appointment. He will be scheduled to see Janeen soon. He was advised to seek emergent medical treatment if he gets worse. I will ask PSR's to please call him to arrange an appointment soon ...... .....................................Darlene Tirado RN on 08/19/16 at 15:13 documented in this encounter Plan of Treatment [...] | | | | | | [place] [address] | | | | | | [phone] | | | | | | | | +--------+ + + + + documented as of this encounter Visit Diagnoses Not on filedocumented in this encounter"
--- OUTSIDE RECORDS SUMMARY | ~2020-06-07 | XMS | Encounter Summary ---
Demographics + + + | Address | [address] | | | [place] [address] | + + + | Home Phone [...] Providers + +------+ + | Care Line Haul Truck Driver Name | Role | Phone | + +------+ + | Kirk French MD | PCP | | + +------+ + Encounter Details +--------+ + + + + | Date | Type | Department | Care Team | Description | +--------+ + + + + | 01/18/ | Hospital | [facility] | Conversion | Diagnosis unknown | | 2017 | Encounter | CONVERSION [address] | Transaction, | | | | | [address] | Provider Unknown | | | | | [place], [place] | [phone] | | | | | [address] | | | | | | [phone] | | | +--------+ + + + [...] + + + +---------+ + + | [place]ell-3 Fatty | CAPS, one capsule by | [...] | | | | | [place], | | | | | | [place] [address] | | | | | | [phone] | | | | | | | [...]
--- OUTSIDE RECORDS SUMMARY | ~2020-06-07 | XMS | Encounter Summary ---
Demographics + + + | Address | [address] [place] [address] [address] | | | [place] [address] | + + + | Home Phone | | + + + | Preferred Language | Unknown | + + + | Marital Status | | + + + | Protestant Affiliation | Unknown | + + + [...] [place] | | | | | [address] | | + + + + + Care Team Providers + +------+ + | Care Rough Planer Tender Name | Role | Phone | [...] | | 2019 | | Center at [facility] [address] | Gastroenterology | Gastroenterology | | | | [facility] | | | | | | for Health and | | | | | | [place], [address] | | | | | | [place], [place] | | | | | | [address] | | | | | | [phone] | | | +--------+ + + + [...]
--- OUTSIDE RECORDS SUMMARY | ~2020-06-07 | XMS | Encounter Summary ---
Demographics + + + | Address | [address] | | | [place] [address] | + + + | Home Phone [...] Team Providers + +------+ + | Care Store Grocery Merchandiser Name | Role | Phone | + [...] | fasting labs) | | | | [place], | [place], | | | | | [place] [address] | [place] [address] | | | | | [phone] | [phone] | | | | | | | [...] | | | | | | [place] [address] | | | | | | [phone] | | | | | | | | +--------+ + + + + documented as of this encounter Visit Diagnoses Not on filedocumented in this encounter"
--- OUTSIDE RECORDS SUMMARY | ~2020-06-07 | XMS | Encounter Summary ---
Demographics + + + | Address | [address] [place] [address] [address] | | | [place] [address] | + + + | Home Phone | | + + + | Preferred Language | Unknown | + + + | Marital Status | | + + + | Mandaeism Affiliation | Unknown | + + + [...] [place] | | | | | [address] | | + + + + + Care Team Providers + +------+ + | Care Newspaper Editor Managing Name | Role | Phone | + [...] | | | | [address] [place] | [place], [place] | | | | | for Health and | [address] | | | | | Healing, [address] | [phone] | | | | | [place], [place] | | | | | | [address] | | | | | | [phone] | | | +--------+ + + + [...]
--- OUTSIDE RECORDS SUMMARY | ~2020-06-07 | XMS | Encounter Summary ---
Demographics + + + | Address | [address] | | | [place] [address] | + + + | Home Phone [...] Team Providers + +------+ + | Care Potato Chip Sorter Name | Role | Phone | [...] [place] | | | | | | [address] | [address] Phone: | | | | | | Phone: | [phone] | | | | | | [phone] | Fax: | | | | | | Fax: | [phone] | | | | | | [phone] | | +--------+ + + + + + Reason for Visit + + + | Reason | Comments | + + + | Medicare Wellness | | + + + Encounter Details +--------+---------+ + + + | Date | Type | Department | Care Team | Description | +--------+---------+ + + + | 07/25/ | Office | [facility] | Michael Amanda, | Preventative health | | 2014 | Visit | MEDIC[facility] [place] | DO [address] | care (Primary Dx); | | | | [address] | [place] | Cannabis abuse, | | | | [place], [place] | [address] | daily use; Urinary | | | | [address] | | frequency; | | | | [phone] | | Incontinence; | | | | [...] for Chest pain. 25 tablet 12 [place]-3 Fatty Acids (SALMON OIL-1000 PO) CAPS, one capsule by mouth daily twice daily ONE TOUCH DELICA LANCETS [facility] Check glucose as needed for hypoglycemia 100 [...] as Nurse Practitioner (Cardiology) FENG Chou (Physician Public Relations) Current Medicare Suppliers: [facility] - [place], [place] - [address] [place] [address] [address] - [place] [address] [place] [address] HEALTH RISK ASSESSMENT: : The patient or [...] no kevin in the usual sections in [place]. documented in this en counter Miscellaneous Notes [...] | | | | | | [place], | | | | | | [place] [address] | | | | | | [phone] | | | | | | | [...] Primary Routine general medical examination at a [facility] | | care facility | [...]
--- OUTSIDE RECORDS SUMMARY | ~2020-06-07 | XMS | Encounter Summary ---
Demographics + + + | Address | [address] | | | [place] [address] | + + + | Home Phone [...] Team Providers + +------+ + | Care Surveyor Rod Helper Name | Role | Phone | [...] + + | 08/31/ | Refill | [facility] | Kirk French | Medication Refill | | 2019 | | [facility] | MD Bre[address] | | | | | PRIMARY CARE [address] | [address] | | | | | [address] | [place] [address] | | | | | [place], [place] | [phone] | | | | | [address] | | | | | | [phone] | | | +--------+--------+ + + + [...] | | | | | | [place] [address] | | | | | | [phone] | | | | | | | | +--------+ + + + + documented as of this encounter Visit Diagnoses Not on filedocumented in this encounter"
--- OUTSIDE RECORDS SUMMARY | ~2020-06-07 | XMS | Encounter Summary ---
Demographics + + + | Address | [address] | | | [place] [address] | + + + | Home Phone [...] Providers + +------+ + | Care Program Dir Name | Role | Phone | + +------+ + PCP | Unavailable | + +------+ + Encounter Details +--------+ + + + + | Date | Type | Department | Care Team | Description | +--------+ + + + + | 01/27/ | [facility] | [facility] | Jonathan, | | | 2008 | Encounter | MED CTR EMERGENCY | Martell Cr MD [address] | | | | | CENTER [address] | [address] | | | | | [place] | [place] [address] | | | | | [address] | [phone] | | | | | [phone] | | | +--------+ + + + [...] | | | | | | [place] [address] | | | | | | [phone] | | | | | | | | +--------+ + + + + documented as of this encounter Visit Diagnoses Not on filedocumented in this encounter"
--- OUTSIDE RECORDS SUMMARY | ~2020-06-07 | XMS | Encounter Summary ---
Demographics + + + | Address | [address] | | | [place] [address] | + + + | Home Phone [...] Providers + +------+ + | Care Product Safety Consultant Name | Role | Phone | + +------+ + PCP | Unavailable | + +------+ + Encounter Details +--------+ + + + + | Date | Type | Department | Care Team | Description | +--------+ + + + + | 04/28/ | [facility] | [facility] | Jonathan, | | | 2008 | Encounter | MED CTR EMERGENCY | Martell Cr MD [address] | | | | | CENTER [address] | [address] | | | | | [place] | [place] [address] | | | | | [address] | [phone] | | | | | [phone] | | | +--------+ + + + [...] | | | | | | [place] [address] | | | | | | [phone] | | | | | | | | +--------+ + + + + documented as of this encounter Visit Diagnoses Not on filedocumented in this encounter"
--- OUTSIDE RECORDS SUMMARY | ~2020-06-07 | XMS | Encounter Summary ---
Demographics + + + | Address | [address] [place] [address] [address] | | | [place] [address] | + + + | Home Phone [...] [place] | | | | | [address] | | + + + + + Care Team Providers + +------+ + | Care Railway Switch Operator Name | Role | Phone | + +------+ + | Darion Holden DO | PCP | | + +------+ + Encounter Details +--------+ + + + + | Date | Type | Department | Care Team | Description | +--------+ + + + + | 01/22/ | Transcribe | [facility] | Transcribe | | | 2020 | Orders | [facility] [address] | Encounter, Provider, | | | | | [address] [place] for | [address] | | | | | Health and Healing, | [place] [address] | | | | | [address] | | | | | | [place], [place] | | | | | | [address] | | | | | | [phone] | | | +--------+ + + + [...]
--- OUTSIDE RECORDS SUMMARY | ~2020-06-07 | XMS | Encounter Summary ---
Demographics + + + | Address | [address] | | | [place] [address] | + + + | Home Phone [...] Providers + +------+ + | Care Outside Sales Associate Name | Role | Phone [...] | 06/06/ | Telephone | [facility] | Silvia, | Other (Cardiac | | 2019 | | CARDIOLOGY [address] | Janeen, PROVINCE ARCHIVIST [address] | Clearance) | | | | [place], | [place], | | | | | [place] [address] | [place] [address] | | | | | [phone] | [phone] | | | | | | | [...] Magi Farr RN - 06/14/2019 8:53 AM Sarthak note faxed to [phone], arlette Galeas. ...........................................Magi Farr RN on 0 [...] RN - 06/06/2019 12:36 PM PDTStephenidi from [facility] calls to josh boyce cardiac clearance for this patient scheduled to have Left shoulder total arthroplasty o n 06/13/19. Routing to Janeen as she is seeing patient this afternoon in clinic. Please fax chart note to Gudelia at [phone].............................................Kasie Ashley RN on 06/06/19 at 12:38 documented [...] | | | | | | [place] [address] | | | | | | [phone] | | | | | | | | +--------+ + + + + documented as of this encounter Visit Diagnoses Not on filedocumented in this encounter"
--- OUTSIDE RECORDS SUMMARY | ~2020-06-07 | XMS | Encounter Summary ---
Demographics + + + | Address | [address] | | | [place] [address] | + + + | Home Phone [...] Team Providers + +------+ + | Care Secretary Receptionist Name | Role | Phone | + [...] + + | 08/30/ | Refill | [facility] | Kirk French | Medication Refill | | 2019 | | [facility] | MD [address] | | | | | PRIMARY CARE [address] | [address] | | | | | [address] | [place] [address] | | | | | [place], [place] | [phone] | | | | | [address] | | | | | | [phone] | | | +--------+--------+ + + + [...] Miscellaneous Notes Telephone Encounter - Geri Bear Seedling Puller - 08/30/2019 12:37 PM PDTrefillElec tronically signed by Geri Bear Seedling Puller at 08/30/2019 12:37 PM PDTdocujean pierre villarreal this encounter Plan of Treatment +--------+ + [...] | | | | | | [place] [address] | | | | | | [phone] | | | | | | | | +--------+ + + + + documented as of this encounter Visit Diagnoses Not on filedocumented in this encounter"
--- OUTSIDE RECORDS SUMMARY | ~2020-06-07 | XMS | Encounter Summary ---
Demographics + + + | Address | [address] | | | [place] [address] | + + + | Home Phone [...] Team Providers + +------+ + | Care Solar Energy Sales Specialist Name | Role | Phone [...] 2016 | | CARDIOLOGY [address] | ANILINE PRESS WORKER [address] | | | | | [place], | [place], [place] | | | | | [place] [address] | [address] | | | | | [phone] | | | +--------+--------+ + + + [...] | | | | | | [place] [address] | | | | | | [phone] | | | | | | | | +--------+ + + + + documented as of this encounter Visit Diagnoses Not on filedocumented in this encounter"
--- OUTSIDE RECORDS SUMMARY | ~2020-06-07 | XMS | Encounter Summary ---
Demographics + + + | Address | [address] | | | [place] [address] | + + + | Home Phone [...] Team Providers + +------+ + | Care Colorer Name | Role | Phone | + +------+ + | Kirk French MD | PCP | | + +------+ + Encounter Details +--------+ + + + + | Date | Type | Department | Care Team | Description | +--------+ + + + + | 11/16/ | [facility] | [facility] | Kirk French | Aneurysm (HCC) | | 2017 | Encounter | MED CTR ULTRASOUND | D, MD [address] | | | | | [address] [place] | [address] | | | | | [place], [place] | [place] [address] | | | | | [address] | [phone] | | | | | [phone] | | | | | | | [...] + + + +---------+ + + | [place]-3 Fatty | CAPS, one capsule by | [...] | | | | | | [place] [address] | | | | | | [phone] | | | | | | | [...]
--- OUTSIDE RECORDS SUMMARY | ~2020-06-07 | XMS | Encounter Summary ---
Demographics + + + | Address | [address] [place] [address] [address] | | | [place] [address] | + + + | Home Phone [...] [place] | | | | | [address] | | + + + + + Care Team Providers + +------+ + | Care Mid Level Business Analyst Name | Role | Phone | [...] | | 2020 | | Center at [facility] [address] | [facility] | (capsule referral) | | | | [address] [facility] | Road [place], [place] | | | | | for Health and | [address] | | | | | [facility] [address] | | | | | | [place], [place] | | | | | | [address] | | | | | | [phone] | | | +--------+ + + + [...]
--- OUTSIDE RECORDS SUMMARY | ~2020-06-07 | XMS | Encounter Summary ---
Demographics + + + | Address | [address] | | | [place] [address] | + + + | Home Phone [...] Team Providers + +------+ + | Care Imaging System Administrator Name | Role | Phone | + +------+ + PCP | Unavailable | + +------+ + Encounter Details +--------+ + + + + | Date | Type | Department | Care Team | Description | +--------+ + + + + | 04/22/ | [facility] | [facility] | | | | 2011 | Encounter | MED CTR XRAY [address] | | | | | | [place] | | | | | | [place] [address] | | | | | | [phone] | | | +--------+ + + + [...] + + + +---------+ + + | [place]-3 Fatty | CAPS, one capsule by | [...] | 0 | 03/09/20 | | | (COLACE) 100 mg | [...] W | | | | | | [place], | | | | | | [place] [address] | | | | | | [phone] | | | | | | | [...] At | + + + | [facility] Diagnostic Imaging Department | [facility] | | [address] [facility] | [facility] | | CT MYELOGRAM LUMBAR SPINE, | [...] Transcribed Date/Time: | | | 04/23/2012 11:06 Fish Cutter: <Electronically Signed | | | by Jama Solis MD> 04/24/12 0730 | | + + + + + | Procedure Note | + + | Kevin, Rad Conversion - 12/29/2013 5:27 PM [facility] | | Diagnostic Imaging Department [address] [place] [address] | | CT MYELOGRAM LUMBAR SPINE, 04/22/2012 [...] 10:54 | |Transcribed Date/Time: 04/23/2012 11:06 | |Fish Cutter: | |<Electronically Signed by Jama Solis MD> [...] At | + + + | [facility] Diagnostic Imaging Department | [facility] | | [address] [facility] | [facility] | | THORACIC CT MYELOGRAM | DIAG [...] Transcribed Date/Time: 04/22/2012 17:32 | | | Fish Cutter: <Electronically Signed by Jama Mason | | | MD Will> 04/23/12 1039 | | + + + + + | Procedure Note | + + | Kalpesh Brown Conversion - 12/29/2013 5:27 PM [facility] | | Diagnostic Imaging Department [address] [place] [address] | | THORACIC CT MYELOGRAM CLINICAL HISTORY: [...] 16:56 | |Transcribed Date/Time: 04/22/2012 17:32 | |Fish Cutter: | |<Electronically Signed by Jama Solis MD> [...] At | + + + | [facility] Diagnostic Imaging Department | [facility] | | [address] [facility] | [facility] | | CT MYELOGRAM CERVICAL SPINE | [...] Similar study from | | | 09/02/2009, [facility]. FINDINGS: Firm bony ankylosis | | [...] Transcribed Date/Time: | | | 04/22/2012 17:25 Fish Cutter: <Electronically Signed | | | by Jama Solis MD> 04/23/12 1039 | | + + + + + | Procedure Note | + + | Kevin, Kalpesh Conversion - 12/29/2013 5:27 PM [facility] | | Diagnostic Imaging Department | | [address] [facility] | | | | | | | [...] | | COMPARISON: Similar study from 09/02/2009, [facility]. | | | | FINDINGS: Firm [...] | Transcribed Date/Time: 04/22/2012 17:25 | | Fish Cutter: | | <Electronically Signed by Jama Solis MD> 04/23/12 1039 | + + + +---------+ + + | Performing | Address | City/State/Zipcode | Phone Number | | Organization | | | | + +---------+ + + | [place] | | | | | [facility] | | | | + +---------+ + + [place] Lumbar Puncture (04/22/2012 1:12 PM PDT) + + | Specimen | + + | | + + + + + | Narrative | Performed At | + + + | [facility] Diagnostic Imaging Department | [facility] | | [address] [facility] | [facility] | | LUMBAR MYELOGRAM INJECTION FOR CT [...] Transcribed Date/Time: 04/22/2012 16:36 | | | Fish Cutter: <Electronically Signed by Jama Mason | | | MD Will> 04/23/12 1039 | | + + + + + | Procedure Note | + + | Kevin, Kalpesh Conversion - 12/29/2013 5:27 PM [facility] | | Diagnostic Imaging Department [address] [facility] [place] | | LUMBAR MYELOGRAM INJECTION FOR CT [...] 15:51 | |Transcribed Date/Time: 04/22/2012 16:36 | |Fish Cutter: | |<Electronically Signed by Jama Solis MD> [...]
--- OUTSIDE RECORDS SUMMARY | ~2020-06-07 | XMS | Encounter Summary ---
Demographics + + + | Address | [address] | | | [place] [address] | + + + | Home Phone [...] Team Providers + +------+ + | Care Workforce Development Program Director Name | Role | Phone | + +------+ + | Kirk French MD | PCP | | + +------+ + Reason for Visit +--------+ + | Reason | Comments | +--------+ + | Cough | | +--------+ + Encounter Details +--------+ + + + + | Date | Type | Department | Care Team | Description | +--------+ + + + + | 02/01/ | Emergency | [facility] | Jonathan, | Bronchitis (Primary | | 2018 | | [facility] | Martell Cr MD [address] | Dx) | | | | CENTER [address] | [address] [place] | | | | | [place], [place] | [place] [address] | | | | | [address] | [phone] | | | | | [phone] | | | +--------+ + + + [...] + + + | Blood Pressure | 181/96 | 02/01/2018 1:50 PM | | | | | PDT | | + + + + + | Pulse | 74 | 02/01/2018 1:50 PM | | | | | PDT | | + + + + + | Temperature | 37.1 C (98.7 F) | 02/01/2018 1:50 PM | | | | | PDT | | + + + + + | Respiratory Rate | 18 | 02/01/2018 1:50 PM | | | | | PDT | | + + + + + | Oxygen Saturation | 94% | 02/01/2018 1:50 PM | | | | | [...] of this encounter Discharge Instructions Instructions Martell Castillo MD - 02/01/2018Take antibiotics as prescribed Use Robitussin to help with cough Inhaler as needed Return if worsening, otherwise follow-up with your doctor documented in this encounter Medications at Time [...] + + + +---------+ + + | [place]-3 Fatty | CAPS, one capsule by | [...] as of this encounter ED Notes Martell Castillo MD - 02/01/2018 2:40 PM PDTFormatting of this note might be differe nt from the original. [facility] Moe Sanchez Emergency Department Encounter Note [address] [place] [id number] PCP:Kirk French MD [phone] DIAGNOSIS: 1. Bronchitis CHIEF COMPLAINT: Chief Complaint Patient presents with Cough Mode of Arrival: walk-in ED Room: ED04 [facility] Moe Sanchez is a 57 y.o. male who presents to the Emergency Department for evaluation. This patient states that he has had 6 weeks of persistent coughing but is worse over the p ast 3 days. He's had some cough productive of sputum. [place] today but was coughing too much and so delayed his trip by a week. He has not had fevers or chills. He says some occasional slight chest pains intermittently but no severe chest pains. No abd ominal pain, nausea and vomiting. PAST MEDICAL & SURGICAL HISTORY Patient Active [...] ventricular arrhythmia performed by Dr. Gambino at [facility] on 01/30/2013. Patient had spontaneous [...] to go back in 3 days to [place] for an attempt of ablation under general [...] Left Heart Cath, 02/29/2012, LVEF is 65%, [facility] Myocardial Gated Stress Test, 05/25/2009, EF 53 % during rest and 52% during stress. [place], [place]. Persantine Sestamibi Stress Test, 06/14/2008, LVEF is 60%, [facility] 12/25/13, shows noncritical coronary artery disease, [...] SERIAL# DATE IMPLANTED GENERATOR Medtronic DDD [id number] [id number] 06/14/09 RV LEAD Medtronic Active Bipolar CapSureFix 4076 [id number] 06/14/09 A LEAD Medtronic Active Bipolar CapSurFix 4076 [id number] 06/14/09 Depression with anxiety 12/24/2017 Priority: Medium Coronary artery disease involving bois forte coronary artery of bois forte heart without angina pectoris 12/21/2013 Priority: Medium [...] tissue attenuation cannot completely be ruled out. [facility] 12/25/13, shows non critical coronary [...] Last Updated: 12/24/2017 Lower back injury (From [facility]) 1981 1985 Hyperlipidemia, mixed Priority: Low [...] 07/26/[address] Angiogram chest w/constrast 05/26/14 [facility] Hypoglycemia 09/20/2012 Bipolar disorder (HCC) Mixed anxiety [...] Procedure: COLONOSCOPY; Surgeon: Emmanuel Daniel MD; Location: [facility] MEDICAL PROCEDURE UNIT HARDWARE REMOVAL KNEE SURGERY 2003 meniscus-right LAMINECTOMY 1991 L3-4 LUMBAR DISCECTOMY 1991 L3-4 LUMBAR FUSION 01/2011 6 spine fusions neck fusion 08/10/2012 [place] NECK SURGERY PACEMAKER PLACEMENT 06/14/09 SHOULDER SURGERY 03/22/13 SINUS SURGERY 1997 SPINAL FUSION STOMACH SURGERY UPPER GASTROINTESTINAL ENDOSCOPY N/A 12/24/2017 Procedure: EGD; Surgeon: Emmanuel Daniel MD; Location: [facility] MEDICAL PROCEDURE UNIT VASECTOMY CURRENT MEDICATIONS Previous Medications 5-HYDROXYTRYPTOPHAN (5-HTP) 100 MG CAPS Take by mouth 2 times daily. ACYCLOVIR (ZOVIRAX) 5% OINTMENT Apply 1 Application topically every 3 hours. ALUMINUM & MAGNESIUM HYDROXIDE-SIMETHICONE (MAALOX REGULAR STRENGTH) 200-200-20 MG/5 ML JESUS SPENSION Take 30 mLs by mouth every 4 hours as needed for Indigestion. ASCORBIC ACID (VITAMIN C) 1000 MG TABLET Take 1,000 mg by mouth Daily. ASPIRIN 81 MG TABLET Take 81 mg by mouth Daily. CHOLECALCIFEROL (VITAMIN D-3) 1,000 UNITS CAPS CAPSULE Take by mouth. CLONAZEPAM (KLONOPIN) 0.5 MG TABLET CLONIDINE (CATAPRES) 0.2 MG TABLET Take 1 tablet by mouth 3 times daily. CYCLOBENZAPRINE (FLEXERIL) 10 MG TABLET Take 10 mg by mouth 2 times daily. DICYCLOMINE (BENTYL) 10 MG CAPSULE Take 1 capsule by mouth 4 times daily. DIPHENHYDRAMINE (BENADRYL) 25 MG CAPSULE Take 25 mg by mouth as needed. MELATONIN TABS, at bedtime as needed METHYLSULFONYLMETHANE (MSM) 1000 MG TABS Take One time daily. METOPROLOL SUCCINATE (TOPROL-XL) 200 MG ER TABLET take 1 tablet by mouth every evening [facility] (OSTEO BI-FLEX/5-LOXIN ADVANCED PO) Take [...] daily twice daily ONE TOUCH DELICA LANCETS [facility] Check glucose as needed for hypoglycemia PRAVASTATIN [...] Length of Need: 99 Months VALACYCLOVIR (VALTREX) 1 G TABLET Take 1,000 mg by mouth 2 times daily. ALLERGIES Allergies Allergen Reactions Clarithromycin Palpitations Rapid [...] PHYSICAL EXAM VITAL SIGNS: (first vital signs):Temp: 37.1 C (98.7 F) Pulse: 74 Resp: 18 SpO2: 94 % BP : (!) 181/96 There is no height or weight on file to calculate BMI. Constitutional: Well-appearing male patient. HEENT: Atraumatic, PERRL, Oropharynx benign. Neck: Supple with full range of motion. Chest: Good air movement bilaterally. No wheezes, Bibasilar, rales. Cardiovascular: Normal S1 S2 Abdomen: Soft, nontender. and no rebound, guarding, or masses. Back: Within normal limits Extremities: Nontender. No lower extremity edema, no calf asymmetry. Present distal pulse s. Skin: Warm, Dry, No rashes Neurologic: Alert & oriented. No focal deficits, Gait and speech are normal Psychiatric: Normal mood, affect and judgement. LABS Results for orders placed or performed during the hospital encounter of 02/01/18 CBC with Differential Result Value Ref Range WBC 6.7 4.0 - 11.0 K/uL RBC 4.98 4.30 - 5.70 M/uL Hgb 16.7 13.5 - 18.0 g/dL Hct 49.7 40.0 - 51.0 % MCV 99.9 83.0 - 101.0 fL MCH 33.6 28.0 - 35.0 pg MCHC 33.7 32.0 - 36.0 g/dL RDW-CV 12.5 <15.0 % Platelet Count 145 140 - 440 K/uL MPV 9.4 fL % Neutrophils 64.4 45.0 - 82.0 % % Lymphocytes 21.4 20.0 - 45.0 % % Monocytes 9.1 4.0 - 12.0 % % Eosinophils 4.3 0.0 - 5.0 % % Basophils 0.8 0.0 - 1.0 % Absolute Neutrophils 4.30 1.80 - 8.50 K/uL Absolute Lymphocytes 1.40 0.60 - 3.20 K/uL Absolute Monocytes 0.60 0.00 - 1.00 K/uL Absolute Eosinophils 0.30 0.00 - 0.40 K/uL Absolute Basophils 0.10 0.00 - 0.10 K/uL Basic Metabolic Panel Result Value Ref Range NA 138 136 - 149 mmol/L K 4.1 3.5 - 5.1 mmol/L CL 105 98 - 109 mmol/L CO2 25 24 - 31 mmol/L ANION GAP 8 3 - 16 mmol/L GLUCOSE 102 70 - 109 mg/dL BUN 10 7 - 18 mg/dL Creatinine, Serum/Plasma 0.82 0.60 - 1.30 mg/dL eGFR if not >60 >=60 mL/min/1.73m2 CALCIUM 9.8 8.3 - 10.5 mg/dL BUN/CREA 12.2 IMAGING STUDIES (X-Rays interpreted by ED Physician) Chest x-ray shows no infiltrates or other acute findings ED COURSE & MEDICAL DECISION MAKING Pertinent Labs & Imaging studies were reviewed along with EMS notes and intermediate record s if applicable. (See chart for details) Medications and Allergy list reviewed. Nurses note and old records were reviewed The patient was seen and examined, given the symptoms of the check some basic labs drawn un remarkable. Chest x-ray were reassuring. This is likely ongoing bronchitis. At this point , [place] one [place] and so I gave him a prescription for antibiotic s and some cough syrup along with an inhaler. Follow up information and return precautions were discussed in detail at the bedside prior to discharge and all questions were answered. Last Set of Vital Signs: Temp: 37.1 C (98.7 F) Pulse: 74 Resp: 18 SpO2: 94 % BP: (!) 18 FINAL IMPRESSION ICD-10-CM ICD-9-CM 1. Bronchitis J40 490 Follow-up Information Kirk French MD. Specialty: Internal Medicine Contact information: [place] [address] [address] New Prescriptions AZITHROMYCIN (ZITHROMAX) 250 MG TABLET Take 2 tablets by mouth daily x 1 day, then take 1 tablet by mouth daily x 4 days. GUAIFENESIN (ROBITUSSIN) 100 MG/5ML LIQUID Take 10-20 mLs by mouth every 4 hours as nee ded for Cough. Portions of this chart were created with Qumulo voice recognition software. Inadvertent so und alike substitutions may be present and are unintentional Martell Castillo MD 02/01/18 1766 Geri Barnes, Student DECAL APPLIER - 02/01/2018 1:48 PM PDTPt complains that he has bronchitis type symptoms x 3 d ays with cough and productive sputumElectronically signed by Geri Olivo, Student DECAL APPLIER at 1:49 PM PDTdocumented in this encounter Plan of [...] | | | | | | [place] [address] | | | | | | [phone] | | | | | | | | +--------+ + + + + + +------+--------+ + + | Name | Type | Priori | Associated Diagnoses | Date/Time | | | | ty | | | + +------+--------+ + + | ED INFORMATION | BRUNILDA | Routin | | 02/01/2018 12:44 PM | | EXCHANGE | | e | | PDT | + +------+--------+ + + documented as of this encounter Procedures + +--------+ + + + | Procedure Name | Priori | Date/Time | Associated Diagnosis | Comments | | | ty | | | | + +--------+ + + + | XR CHEST PA AND | STAT | 02/01/2018 | | Results for this | | LATERAL | | 2:23 PM | | procedure are in the | | | | PDT | | results section. | + +--------+ + + + | EXTRA GREEN TOP TUBE | Routin | 02/01/2018 | | Results for this | | | e | 2:22 PM | | procedure are in the | | | | PDT | | results section. | + +--------+ + + + | EXTRA BLUE TOP TUBE | Routin | 02/01/2018 | | Results for this | | | e | 2:14 PM | | procedure are in the | | | | PDT | | results section. | + +--------+ + + + | CBC WITH | STAT | 02/01/2018 | | Results for this | | DIFFERENTIAL | | 2:14 PM | | procedure are in the | | | | PDT | | results section. | + +--------+ + + + | BASIC METABOLIC | STAT | 02/01/2018 | | Results for this | | PANEL | | 2:14 PM | | procedure are in the | | | | PDT | | results section. | + +--------+ + + + | ED INFORMATION | Routin | 02/01/2018 | | | | EXCHANGE | e | 12:44 PM | | | | | | PDT | | | + +--------+ + + + +---+--------+ | | | | | Proced | | | ure | | | Note - | | | Eneida, | | | Lab In | | | | | | Hlseve | | | n - | | | 02/01/ | | | 2017 | | | 12:45 | | | PM PDT | | [...] | | | FICATI | | | ON?03/ | | | | | | 8 | | | 12:41? | | | NATAEN | | | , | | | NOMAN | | | ICK | | | W?MRN: | | | | | | [id number] | | | [id number] | | | his | | | [...] | | | ent/60 | | | [id number] | | | -[id number] | | | [id number] | | | fcb-b9 | | | [id number] | | | [id number] | | | ED | | | [...] | | | int | | | Mar | | | [...] | | | itis | | | Felice | | | 23, | | | 2018 | | | [facility] | [place] | | | [facility] | | | [place] | | | [place] | | | Emerge | | | ncy | | | Emerge | | | ncy | | | | | | Otalgi | | | a, | | | bilate | | | ral | | | Other | | | skin | | | change | | | s | | | Acute | | | upper | | | respir | | | atory | | | infect | | | ion, | | | unspec | | | ified | | | | | | Essent | | | ial | | | (prima | | | ry) | | | hypert | | | ension | | | | | | Allerg | | | y | | | status | | | to | | | narcot | | | ic | | | agent | | | status | | | | | | PURE | | | HYPERC | | | HOLEST | | | EROLEM | | | IA, | | | UNSPEC | | | IFIED | | | | | | Allerg [...] | | ce of | | | aortoc | | | oronar | | | y | | | bypass | | | graft | | | Felice | | | 12, | | | 2018 | | | [facility] | | [place] | | | [facility] | | | [place] | | | [place] | | | Emerge | | | ncy | | | Emerge | | | ncy | | | Other | | | long | | | term | | | (curre | | | nt) | | | drug | | | therap | | | y | | | Hypogl | | | ycemia | | | , | | | unspec | | | ified | | | | | | Long | | | term | | | (curre | | | nt) | | | use of | | | | | | aspiri | | | n | | | Allerg | | | y | | | status | | | to | | | other | | | antibi | | | otic | | | agents | | | | | | status | | | | | | Essent | | | ial | | | (prima | | | ry) | | | hypert | | | ension | | | | | | Allerg [...] | | | llin | | | PURE | | | | | | HYPERC | | | HOLEST | | | EROLEM | | | [place], | | | UNSPEC | | | IFIED | | | | | | Allerg | | | y | | | status | | | to | | | narcot | | | ic | | | agent | | | status | | | Felice | | | 1, | | | 2018 | | | [facility] | | [place] | | | [facility]. | | | [place] | | | [place] | | | Emerge | | | ncy | | | Emerge | | | ncy | | | | | | Allerg [...] llin | | | | | | Essent | | | ial | | | (prima | | | ry) | | | hypert | | | ension | | | | | | Other [...] | | | ence | | | Long | | | term | | | (curre | | | nt) | | | use of | | | | | | aspiri | | | n | | | Allerg | | | y | | | status | | | to | | | narcot | | | ic | | | agent | | | status | | | | | | Acute | | | bronch | | | itis, | | | unspec | | | ified | | | | | | Chest | | | pain, | | | unspec | | | ified | | | | | | Cough | | | Dec | | | 21, | | | 2017 | | | [facility] | | [place] | | | [facility] | | | [place] | | | [place] | | | Emerge | | | ncy | | | Emerge | | | ncy | | | | | | Diarrh | | | ea, | | | unspec | | | ified | | | | | | Right | | | upper | | | quadra | | | nt | | | pain | | | | | | Allerg | | | y | | | status | | | to | | | narcot | | | ic | | | agent | | | status | | | | | | Long | | | term | | | (curre | | | nt) | | | use of | | | | | | aspiri | | | n | | | Allerg | | | y | | | status | | | to | | | other | | | antibi | | | otic | | | agents | | | | | | status | | | | | | Person | | | al | | | histor | | | y of | | | nicoti | | | ne | | | depend | | | ence | | | | | | Essent | | | ial | | | (prima | | | ry) | | | hypert | | | ension | | | | | | Other | | | long | | | term | | | (curre | | | nt) | | | drug | | | therap | | | y | | | Allerg | | | y | | | status | | | to | | | penici | | | llin | | | E.D. | | | Visit | | | Count | | | (12 | | | mo.)Fa | | | cility | | | | | | Visits | | | Low | | | [facility] | | | | | | [facility] | | | | | | Region | | | al | | | Medica | | | l | | | Center | | | 1 0 | | | Provid | | | ence | | | St. | | | [facility] | | | Medica | | | l | | | Center | | | 2 0 | | | [facility] | | | [place] | | | y | | | Hospit | | | al 7 0 | | | Total | | | 10 0 | | | Note: | | [...] | | | ext. | | | [phone] | | | or go | | [...] | | | Provid | | | ersEDI | | | E has | | | no | | | care | | | provid | | | ers on | | | | | | record | | | at | | | this | | | time. | | | Criter | | | [...] documented in this encounter Results XR Chest PA and Lateral (02/01/2018 2:23 PM PDT) + + | Specimen | + + | | + + + + + | Narrative | Performed At | + + + | XR CHEST PA AND LATERAL 02/01/2018 2:23 PM HISTORY: cough. | [facility] | | COMPARISON: Multiple priors. Findings: A left pacemaker is | | | present with leads to the right atrium and right ventricle. Heart | | | size is normal. Aorta is normal. Mediastinum is unremarkable. Central | | | pulmonary vasculature is normal. The bilateral lungs are clear with | | | no evidence for pleural effusion or pneumothorax. Fusion hardware is | | | partially imaged in the cervical spine. IMPRESSION - No acute | | | findings. Dictated and Signed by: Nuno Leigh MD | | | Electronically signed: 02/01/2018 3:01 PM | | + + + + + | Procedure Note | + + | Eneida, Rad Results In - 02/01/2018 3:04 PM PDT XR CHEST PA AND LATERAL 02/01/2018 2:23 | | PMHISTORY: cough.COMPARISON: Multiple priors.Findings:A left pacemaker is present with | | leads to the right atrium and right ventricle.Heart size is normal. Aorta is normal. | | Mediastinum is unremarkable. Centralpulmonary vasculature is normal. The bilateral lungs | | are clear with no evidencefor pleural effusion or pneumothorax. Fusion hardware is | | partially imaged in thecervical spine.IMPRESSION -No acute findings.Dictated and Signed | | by: Nuno Leigh MD Electronically signed: 02/01/2018 3:01 PM | |A left pacemaker is present with leads to the right atrium and right ventricle. | |Heart size is normal. Aorta is normal. Mediastinum is unremarkable. Central | |pulmonary vasculature is normal. The bilateral lungs are clear with no evidence | |for pleural effusion or pneumothorax. Fusion hardware is partially imaged in the | |cervical spine. | | | |IMPRESSION - | |No acute findings. | | | |Dictated and Signed by: Nuno Leigh MD | | Electronically signed: 02/01/2018 3:01 PM | + + + +---------+ + + | Performing | Address | City/State/Zipcode | Phone Number | | Organization | | | | + +---------+ + + | [facility] | | | | + +---------+ + + Extra Green Top Tube (02/01/2018 2:22 PM PDT) + +-------+ + + + | Component | Value | Ref Range | Performed | Pathologist | | | | | At | Signature | + +-------+ + + + | Extra Green | Done | | [facility] | | | Top Tube | | | [facility] | | [...] ST[facility] | [address] | [place], [place] | [phone] | | [facility] | | [address] | | | - LABORATORY | | | | + + + + + Extra Blue Top Tube (02/01/2018 2:14 PM PDT) + +-------+ + + + | Component | Value | Ref Range | Performed | Pathologist | | | | | At | Signature | + +-------+ + + + | Extra Blue | Done | | [facility] | | | Top Tube | | | [facility] | [address] | [place] | [phone] | | [facility] | | [address] | | | - LABORATORY | | | | + + + + + Basic Metabolic Panel (02/01/2018 2:14 PM PDT) + + + + + [...] + + + + | Glucose | 102 | 70 - 109 mg/dL | [facility] | | | | | | [facility] | | | | | | MEDICAL | | | | | | CENTER - | | | | | | LABORATORY | | + + + + + + | BUN | 10 | 7 - 18 mg/dL | [facility] | | | | | | [facility] | | | | | | MEDICAL | | | | | | CENTER - | | | | | | LABORATORY | | + + + + + + | Creatinine | 0.82 | 0.60 - 1.30 | [facility] | | | | | mg/dL | [facility] | | | | | | MEDICAL | | | | | | CENTER - | | | | | | LABORATORY | | + + + + + + | eGFR if not | >60Comment: GLOMERULAR | >=60 | [facility] | | | | FILTRATION | mL/min/1.73m2 | [facility] | | | [place] | RATE,ESTIMATED | | MEDICAL | | | | mL/min/1.95h4Hjgj than | | CENTER - | | [...] + + | Calcium | 9.8 | 8.3 - 10.5 | [facility] | | | | | mg/dL | [facility] | | | | | | MEDICAL | | | | | | CENTER - | | | | | | LABORATORY | | + + + + + + | BUN/Creatin | 12.2 | | [facility] | | | ine [...] + | [facility] | [address] | [place] | [phone] | | [facility] | | [address] | | | - LABORATORY | | | | + + + + + CBC with Differential (02/01/2018 2:14 PM PDT) + +-------+ + + + | Component | Value | Ref Range | Performed | Pathologist | | | | | At | Signature | + +-------+ + + + | White Blood | 6.7 | 4.0 - 11.0 K/uL | [facility] [...] +-------+ + + + | Hematocrit | 49.7 | 40.0 - 51.0 % | [facility] | | | | | | [facility] | | | | | | MEDICAL | | | | | | CENTER - | | | | | | LABORATORY | | + +-------+ + + + | MCV | 99.9 | 83.0 - 101.0 fL | [facility] | | | | | | [facility] | | | | | | MEDICAL | | | | | | CENTER - | | | | | | LABORATORY | | + +-------+ + + + | MCH | 33.6 | 28.0 - 35.0 pg | [facility] | | | | | | [facility] | | | | | | MEDICAL | | | | | | CENTER - | | | | | | LABORATORY | | + +-------+ + + + | MCHC | 33.7 | 32.0 - 36.0 | [facility] | | | | | g/dL | [facility] | | | | | | MEDICAL | | | | | | CENTER - | | | | | | LABORATORY | | + +-------+ + + + | RDW-CV | 12.5 | <15.0 % | [facility] | | | | | | [facility] | | | | | | MEDICAL | | | | | | CENTER - | | | | | | LABORATORY | | + +-------+ + + + | Platelet | 145 | 140 - 440 K/uL | [facility] | | | Count | | | [facility] | | | | | | MEDICAL | | | | | | CENTER - | | | | | | LABORATORY | | + +-------+ + + + | MPV | 9.4 | fL | [facility] | | | | | | [facility] | | | | | | MEDICAL | | | | | | CENTER - | | | | | | LABORATORY | | + +-------+ + + + | % | 64.4 | 45.0 - 82.0 % | [facility] | | | Neutrophils | | | [facility] | | | | | | MEDICAL | | | | | | CENTER - | | | | | | LABORATORY | | + +-------+ + + + | % | 21.4 | 20.0 - 45.0 % | [facility] | | | Lymphocytes | | | [facility] | | | | | | MEDICAL | | | | | | CENTER - | | | | | | LABORATORY | | + +-------+ + + + | % Monocytes | 9.1 | 4.0 - 12.0 % | [facility] | | | | | | [facility] | | | | | | MEDICAL | | | | | | CENTER - | | | | | | LABORATORY | | + +-------+ + + + | % | 4.3 | 0.0 - 5.0 % | [facility] | | | Eosinophils | | | [facility] | | | | | | MEDICAL | | | | | | CENTER - | | | | | | LABORATORY | | + +-------+ + + + | % Basophils | 0.8 | 0.0 - 1.0 % | [facility] | | | | | | [facility] | | | | | | MEDICAL | | | | | | CENTER - | | | | | | LABORATORY | | + +-------+ + + + | Absolute | 4.30 | 1.80 - 8.50 | [facility] | | | Neutrophils | | K/uL | [facility] | | | | | | MEDICAL | | | | | | CENTER - | | | | | | LABORATORY | | + +-------+ + + + | Absolute | 1.40 | 0.60 - 3.20 | [facility] | | | Lymphocytes | | K/uL | [facility] | | | | | | MEDICAL | | | | | | CENTER - | | | | | | LABORATORY | | + +-------+ + + + | Absolute | 0.60 | 0.00 - 1.00 | [facility] | | | Monocytes | | K/uL | [facility] | | | | | | MEDICAL | | | | | | CENTER - | | | | | | LABORATORY | | + +-------+ + + + | Absolute | 0.30 | 0.00 - 0.40 | [facility] | | | Eosinophils | | K/uL | [facility] [address] | [place] | [phone] | | [facility] | | [address] | | | - LABORATORY | | | | + + + + + documented in this encounter Visit Diagnoses + + | Diagnosis | + + | Bronchitis - Primary Bronchitis, not specified as acute or chronic | + + documented in this encounter
--- OUTSIDE RECORDS SUMMARY | ~2020-06-07 | XMS | Encounter Summary ---
Demographics + + + | Address | [address] | | | [place] [address] | + + + | Home Phone [...] Team Providers + +------+ + | Care Biodiesel Product Manager Name | Role | Phone | + +------+ + | Darion Holden DO | PCP | | + +------+ + Encounter Details +--------+ + + + + | Date | Type | Department | Care Team | Description | +--------+ + + + + | 08/05/ | [facility] | [facility] | Emmanuel Daniel MD | | | 2009 | Encounter | MED CTR XRAY [address] | | | | | [place] | [address] [place], [place] | | | | | [place], [place] [address] | [address] | | | | | [phone] | | | +--------+ + + + [...] | | | | | | [place] [address] | | | | | | [phone] | | | | | | | | +--------+ + + + + documented as of this encounter Visit Diagnoses Not on filedocumented in this encounter"
--- OUTSIDE RECORDS SUMMARY | ~2020-06-07 | XMS | Encounter Summary ---
Demographics + + + | Address | [address] | | | [place] [address] | + + + | Home Phone [...] Team Providers + +------+ + | Care Kettle Chipper Name | Role | Phone | + +------+ + | Kirk French MD | PCP | | + +------+ + Encounter Details +--------+ + + + + | Date | Type | Department | Care Team | Description | +--------+ + + + + | 04/07/ | Hospital | [facility] | Pia Akhtar | Spinal stenosis of | | 2016 | Encounter | MED CTR XRAY [address] | MD [address] | lumbar region | | | | [place] | [address] | | | | | [place] [address] | [place] [address] | | | | | [phone] | [phone] | | | | | | | [...] + + + +---------+ + + | Keo-3 Fatty | CAPS, one capsule by | [...] | | | | | | [place] [address] | | | | | | [phone] | | | | | | | [...] | Kalpesh Brown Results In - 04/07/2016 1:40 PM PDT [...] iohexol (OMNIPAQUE 240) 240 | Given | 04/07/ | 6 mLs | | | | mg/mL injection 6 mL 6 mL, | | 16 11:26 | | | | | Other, ONCE PRN, Other, intra | | AM PDT | | | | | thecal, Starting Wed04/07/16 at | | | | | | | 1126, For 1 dose, Radiology | | | | | | + +--------+ +-------+------+------+ +---+---+ | | | +---+---+ + +-------+ +--------+---+ + | lidocaine 1% injection 10 mL | Given | 04/07/20 | 10 mLs | | Other | | 10 mL, Intradermal, ONCE, Wed | | 16 11:45 | | | (Comment | | 04/07/16 at 1145, For 1 dose | | AM PDT | | | ) | + +-------+ +--------+---+ + +---+---+ | | | +---+---+ documented in this encounter"
--- OUTSIDE RECORDS SUMMARY | ~2020-06-07 | XMS | Encounter Summary ---
Demographics + + + | Address | [address] | | | [place] [address] | + + + | Home Phone [...] Providers + +------+ + | Care Security And Privacy Consultant Name | Role | Phone | [...] | disease involving | | | | [place], | [place], | tun[place] coronary | | | | [place] [address] | [place] [address] | artery of tunica-biloxi | | | | [phone] | [phone] | heart without angina | | | [...] of non-critical coronary artery d isease involving tunica-biloxi coronary artery of tun[place] heart without angina pectoris, essential h ypertension, [...] stay active. He enjoys hunting in his [place]. He has not had any chest pain [...] Preventative health care Coronary artery disease involving tunica-biloxi coronary artery of tun[place]-bil[place]i heart without angina pectoris Cannabis abuse, daily [...] 3RD DOSE, CALL 911 100 tablet 3 [place]-3 Fatty Acids (SALMON OIL-1000 PO) CAPS, one capsule by mouth daily twice daily ondansetron (ZOFRAN ODT) 4 mg disintegrating tablet Take 4 mg by mouth. ONE TOUCH DELICA LANCETS [facility] Check glucose as needed for hypoglycemia 100 [...] was found Confirmed by ANGELA MARADIAGA MD ([id number]) on 01/03/2019 8:10:39 PM LAB RESULTS reviewed [...] ASSESSMENT: 1. Non-critical Coronary artery disease involving tunica-biloxi coronary artery of tun[place]-biloxi heart [facility] angina pectoris: A.Normal exercise sestamibi [...] Symptoms with moderate exertion of t he [place] [employer] functional class. Heart failure stage [...] performed by Dr Juan Diego Gambino at [facility] on 01/30/2013.Patient had spontaneous PVC's [...] to go back in 3 days to [place] for an attempt of ablation under general [...] this chart may have been created with Gymtrack voice recognition software. Occasi onal wrong-word or [...] | | | | | | [place] [address] | | | | | | [phone] | | | | | | | | +--------+ + + + + documented as of this encounter Visit Diagnoses + + | Diagnosis | + + | Coronary artery disease involving tunica-biloxi coronary artery of tunica-biloxi heart without | | angina pectoris - Primary | + + | Symptomatic PVCs Other premature beats | + + | Essential hypertension Unspecified essential hypertension | + + documented in this encounter
--- OUTSIDE RECORDS SUMMARY | ~2020-06-07 | XMS | Encounter Summary ---
Demographics + + + | Address | [address] | | | [place] [address] | + + + | Home Phone [...] Team Providers + +------+ + | Care Advance Scout Name | Role | Phone | + +------+ + | Michael Amanda DO | PCP | | + +------+ + Reason for Visit +--------+--------+ + | Reason | Onset | Comments | | | Date | | +--------+--------+ + | Other | 01/26/ | chest pain | | | 2013 | | +--------+--------+ + Encounter Details +--------+ + + + + | Date | Type | Department | Care Team | Description | +--------+ + + + + | 01/26/ | Telephone | [facility] | Daljit Singletary, | Other (chest pain) | | 2013 | | CARDIOLOGY [address] | MD [address] | | | | | [place], | [place], | | | | | [place] [address] | [place] [id number] | | | | | [phone] | [phone] | | | | | | | [...] Telephone Encounter - Darlene Tirado RN - 01/26/2014 11:18 AM EARLFrousmane called to report corie hat he was in ER yesterday due to chest pain so he had to cancel his appointment here. He w ould like to be seen soon. Appointment is scheduled for him for Wednesday .................... .......................Darlene Tirado RN on 01/26/2014 at 11:19 documented in this encounter Plan of Treatment [...] | | | | | | [place] [id number] | | | | | | [phone] | | | | | | | | +--------+ + + + + documented as of this encounter Visit Diagnoses Not on filedocumented in this encounter"
--- OUTSIDE RECORDS SUMMARY | ~2020-06-07 | XMS | Clinical Summary ---
Demographics + + + | Address | [address] [place] [address] | | | [place] [address] | + + + | Home Phone [...] [place] | | | | | [address] | | + + + + + Care Team Providers + +------+ + | Care Educational Consultant Name | Role | Phone | + +------+ + | Draion Holden DO | PCP | | + +------+ + Source Comments IVETTE is fully live on both EpicCare Ambulatory and EpicCare InPatient.[facility] Allergies + + + + + + [...] | Other | | 2020 | | | MD | | +--------+ [...] | 07/23/2016, 06/24/2015, | | | vaccination (Season | 0 | 09/10/2009, Additional history | | | Ended) | | exists | | + + + + + Results Not on filefrom Last 3 Months Insurance + +--------+ +--------+ + +--------+ | Payer | Benefi | Subscriber | Effect | Phone | Address | Type | | | t Plan | [place] | [id number] | | | | | | / [...] | | | | | | | [id number] | | + +--------+ +--------+ + +--------+ | [employer] | AARP | [phone] | 11/22/19 | [phone] | [address] | Indemn | | RETIRED PEOPLE | | | 10-Pre | 9 | [id number] | ity | | | | | sent | | [place], [place] | | | | | | | | [address] | | + +--------+ +--------+ + +--------+ + +--------+ +--------+ + + | Guarantor Name | Accoun | Relation to | Date | Phone | Billing Address | | | t Type | Patient | of | | | | | | | | | | + +--------+ +--------+ + + | Moe Sanchez W | Person | Self | [birth year] | [address] | | | cristo/Per | | 1959 | [phone] | [place] | | | roxanne | | | 8 (Home) | [address] | + +--------+ +--------+ + + Advance Directives + + + + + | Type | Date Recorded | Patient | Explanation | | | | Growth Hacker | | + + + + + | Advance | | | | | Directives and | | | | | Living Will | | | | + + + + + | Power of | | | | | Passenger Service Representative | | | | + + + + +
--- OUTSIDE RECORDS SUMMARY | ~2020-06-07 | XMS | Encounter Summary ---
Demographics + + + | Address | [address] | | | [place] [address] | + + + | Home Phone [...] Providers + +------+ + | Care Teacher Of The Sight Impaired Name | Role | Phone | + [...] type ER | [address] | [address] | | | | | [place] | [place] | [place], | | | | | Procedures | [place], [place] | [place] [address] | | | | | FUP - SUW & | [address] | Phone: | | | | | EVM PT, LAST | Phone: | [phone] | | | | | SEEN | [phone] | Fax: | | | | | 08-24-18 | Fax: | [phone] | | | | | | [phone] | | +--------+ + + + + [...] | | | | CENTER [address] | [address] [place] | (Primary Dx) | | | | [place], [place] | [place] [address] | | | | | [address] | [phone] | | | | | [phone] | | | +--------+ + + + [...] through Care Everywhere.Chest Pain, Unc ertain Cause (Yi)documented in this encounter Medications at Time of [...] + + + +---------+ + + | Ripley-3 Fatty | CAPS, one capsule by | [...] might be diff erent from the original. [facility] Emergency Department Encounter Note [address] [place] [address] PCP:Kirk French MD [phone] CHIEF COMPLAINT: Chief Complaint Patient presents with Chest Pain ED Room: ED06 [facility] Moe Sanchez is a 58 y.o. [...] include none. The patient does have a head batcher. The patient has had risk stratification recently. The patient denies stimulant drug use ever, IVDU ever, use, family history of [place] at an age younger than 55. The patient denies history of blood cl ots, coagulation disorder, leg pain/swelling, recent surgery immobilization, cancer, estroge n use, Shortness of breath, cough, or hemoptysis. Language line ditching machine operating engineer made available and used to collect historical [...] ventricular arrhythmia performed by Dr. Gambino at [facility] on 01/30/2013. Patient had spontaneous [...] to go back in 3 days to [place] for an attempt of ablation under general [...] SERIAL# DATE IMPLANTED GENERATOR Medtronic DDD ADDR01 [id number] 06/14/09 RV LEAD Medtronic Active Bipolar CapSureFix 4076 [id number] 06/14/09 A LEAD Medtronic Active Bipolar CapSurFix 4076 [id number] 06/14/09 Depression with anxiety 12/24/2017 Priority: Medium Coronary artery disease involving swinomish coronary artery of swinomish heart without angina pectoris 12/21/2013 Priority: Medium [...] tissue attenuation cannot completely be ruled out. [facility] 12/25/13, shows non critical coronary artery disease, [...] Last Updated: 12/24/2017 Lower back injury (From [facility]) 1981 1985 Hyperlipidemia, mixed Priority: [...] 07/26/[address] Angiogram chest w/constrast 05/26/14 [facility] Hypoglycemia 09/20/2012 Bipolar disorder (HCC) Mixed [...] COLONOSCOPY; Surgeon: Emmanuel Daniel MD; Location: [facility] EGD 12/24/2017 HARDWARE [...] EGD; Surgeon: Emmanuel Daniel MD; Location: [facility] VASECTOMY CURRENT MEDICATIONS [...] by mouth Daily.Disp-90 tabl et, R-1, Normal [facility] Natural Products (OSTEO BI-FLEX/5-LOXIN ADVANCED PO) [...] DOSE, CALL 911Disp-100 tablet, R-3 , Normal Ripley-3 Fatty Acids (SALMON OIL-1000 PO) CAPS, one capsule by mouth daily twice daily ondansetron (ZOFRAN ODT) 4 mg disintegrating tablet Take 4 mg by mouth every 6 hours as nee ded.Historical Med ONE TOUCH DELICA LANCETS [facility] Check glucose as needed for hypoglycemiaDisp-100 each, [...] FIND Take 1 tablet by mouth Daily. MARINE-S9Cmlfcnmihg Med UNCODED MEDICATION Diagnosis: Obstructive Sleep Apnea ICD-9: 327.23 Length of Need: 99 MonthsDisp-1 Device, R-0, [id number] -Nasal Pillows, C9433-Gyuqi Mask, A 7030- Full Face Mask, H4544-Fyynzw Humidifier, J2773-Xyxurf Tubing, X9296-Awjjxqvq, Q2681-Ja instrap A7039/A703 8-Filters valACYclovir (VALTREX) 1 g [...] pH, Urine 5.0 5.0 - 8.0 Specific [place] 1.011 1.001 - 1.030 Protein, Urine Negative [...] were reviewed along with EMS notes and senior living record s if applicable. (See chart for [...] Internal Medicine Contact information: [address] [address] Daljit Singletary MD. Call today. [...] Portions of this chart were created with InGameNow voice recognition software. Inadvertent so und alike [...] W | | | | | | [place], | | | | | | [place] [address] | | | | | | [phone] | | | | | | | [...] W?MRN: | | | | | | [id number] | | | [id number] | | | riteri | | | [...] | | | M.D. | | | Alum Plant Operator | | | al | | | [...] | | | ent/60 | | | [id number] | | | -5586- | | | [...] | | | | ANGELA MARADIAGA MD ([id number]) | | | | | | on [...] | | | | | | [employer] | | | | | [...] [address] | [place] | [phone] | | [facility] | | [address] | | | - LABORATORY | | [...] + | [facility] | [address] | [place] | [phone] | | [facility] | | [address] | | | - LABORATORY | | [...] - 1.030 | [facility] | | | [place], | | | [facility] | | [...] ST. | [address] | [place], [place] | [phone] | | [facility] | | [address] | | | - LABORATORY | | [...] [address] | [place] | [phone] | | [facility] | | [address] | | | - LABORATORY | | [...] [address] | [place] | [phone] | | [facility] | | [address] | | | - LABORATORY | | [...] | | | | | | [employer] | | | | | [...] + | [facility] | [address] | [place] | [phone] | | [facility] | | [address] | | | - LABORATORY | | [...] | mL/min/1.73m2 | [place] | | | [place] | RATE,ESTIMATED | | MEDICAL | | | | mL/min/1.79f8Tiqe than | | CENTER - | | [...] [address] | [place] | [phone] | | [facility] | | [address] | | | - LABORATORY | | [...] ST. | [address] | [place] | [phone] | | [facility] | | [address] | | | - LABORATORY | | [...] | | | | ANGELA MARADIAGA MD ([id number]) | | | | | | on [...]
--- OUTSIDE RECORDS SUMMARY | ~2020-06-07 | XMS | Encounter Summary ---
Demographics + + + | Address | [address] [place] [address] [address] | | | [place] [address] | + + + | Home Phone [...] [place] | | | | | [address] | | + + + + + Care Team Providers + +------+ + | Care Lodging House Keeper Name | Role | Phone | [...] | | 2020 | | Center at [facility] [address] | MD [address] | | | | | [address] [place] | [place], [place] | | | | | for Health and | [address] | | | | | [facility] 2 | [phone] | | | | | [place], [place] | | | | | | [address] | | | | | | [phone] | | | +--------+ + + + [...]
--- OUTSIDE RECORDS SUMMARY | ~2020-06-07 | XMS | Encounter Summary ---
Demographics + + + | Address | [address] | | | [place] [address] | + + + | Home Phone [...] Providers + +------+ + | Care Cash Posting Clerk Name | Role | Phone [...] + + | 05/28/ | Refill | [facility] | Kirk French | Medication Refill | | 2019 | | [facility] | MD [address] | | | | | [facility] [address] | [address] | | | | | [address] | [place] [address] | | | | | [place], [place] | [phone] | | | | | [address] | | | | | | [phone] | | | +--------+--------+ + + + [...] Miscellaneous Notes Telephone Encounter - Geri Bear Management Professionals - 05/29/2020 10:29 AM Tanya ov [facility] umaguila in this encounter Plan of Treatment [...] | | | | | | [place] [address] | | | | | | [phone] | | | | | | | | +--------+ + + + + documented as of this encounter Visit Diagnoses Not on filedocumented in this encounter"
--- OUTSIDE RECORDS SUMMARY | ~2020-06-07 | XMS | Encounter Summary ---
Demographics + + + | Address | [address] | | | [place] [address] | + + + | Home Phone [...] Team Providers + +------+ + | Care Programmer Operator Numerical Control Name | Role | Phone | [...] visit | CARDIOLOGY [address] | [address] [place] | reprogramming/check | | | | [place], | [place], | DO [place] DELETE | | | | [place] [address] | [place] [address] | (Primary Dx); | | | | [phone] | [phone] | Sinoatrial node | | | | [...] encounter Procedure Notes Daljit Singletary MD - 12/29/2016 1:25 PM PSTAssociated Order(s): DEVICE INTERROGATIONPro cedure(s): DEVICE INTERROGATIONPre-Procedure [...] by Daljit Singletary MD Underlying rhythm: Sinus Bradycardia between [...] | | | | | | [place] [address] | | | | | | [phone] | | | | | | | [...] | + + + | Daljit | PACEMIAN | | MD Gemini 12/29/2016 13:41 PATIENT [...]
--- OUTSIDE RECORDS SUMMARY | ~2020-06-07 | XMS | Encounter Summary ---
Demographics + + + | Address | [address] | | | [place] [address] | + + + | Home Phone [...] Providers + +------+ + | Care Guest Service Supervisor Name | Role | Phone [...] Results | | 2013 | | [facility]IC[facility] | DO [address] | | | | | [address] | [place], [place] | | | | | [place], [place] | [address] | | | | | [address] | | | | | | [phone] | | | +--------+ + + + [...] Telephone Encounter - Betsy Bernardo RN - 07/30/2014 11:31 AM PDTCalled and left messa ge for patient to call back to discuss lab results. Good cholesterol. Normal CMP except for glucose in prediabetic range- decrease carbs in t. Normal PSA. Normal TSH. Normal CBC. Electronically signed by Betsy Bernardo RN at 06/2014 11:32 AM PDTdocumented in this encounter Plan of [...] | | | | | | [place] [address] | | | | | | [phone] | | | | | | | | +--------+ + + + + documented as of this encounter Visit Diagnoses Not on filedocumented in this encounter"
--- OUTSIDE RECORDS SUMMARY | ~2020-06-07 | XMS | Encounter Summary ---
Demographics + + + | Address | [address] | | | [place] [address] | + + + | Home Phone [...] Team Providers + +------+ + | Care Shipping/Receiving Clerk Name | Role | Phone | + +------+ + | Michael Amanda DO | PCP | | + +------+ + Reason for Visit + +--------+ + | Reason | Onset | Comments | | | Date | | + +--------+ + | Eye Problem | 06/22/ | | | | 2012 | | + +--------+ + Encounter Details +--------+ + + + + | Date | Type | Department | Care Team | Description | +--------+ + + + + | 06/22/ | Telephone | [facility] | Michael Amanda, | Eye Problem | | 2012 | | MEDICINE [place] | DO [address] | | | | | [address] | [place] | | | | | [place] | [address] | | | | | [address] | | | | | | [phone] | | | +--------+ + + + [...] Notes Telephone Encounter - Shea Knapp - 06/22/2013 4:44 PM PDTPatient called back. Gave him appointment time. Shea Knapp elephone Encounter - S Omaira goyal RN - 06/22/2013 4:26 PM PDTMonica calling from Dr. Franco's office States patient is having eye problems and had a sudden onset of visual disturbances in both eyes, cant hardly see now, cant drive Dr. Franco would like him to be seen by his primacy care provider Patient can be reached at Home:[phone] Patient also says he needs physical Talked with dr. Holm and he will see the patient for just the eye issue tomorrow Attempted to call patient to let him know but he did not answer his phone and he has not se t up his voice mail so I could not leave a message documented in this encounter Plan of Treatment [...] | | | | | | [place] [address] | | | | | | [phone] | | | | | | | | +--------+ + + + + documented as of this encounter Visit Diagnoses Not on filedocumented in this encounter"
--- OUTSIDE RECORDS SUMMARY | ~2020-06-07 | XMS | Encounter Summary ---
Demographics + + + | Address | [address] | | | [place] [address] | + + + | Home Phone [...] 2019 | | GASTROENTEROLOGY | [address], [place] | | | | | [address] [place] | [address] [place], [place] | | | | | [address] [place], [place] | [address] | | | | | [address] | | | | | | [phone] | | | +--------+ + + + [...] this phone call to Dr. Rios at [facility], as Dr. Daniel is not seeing arian ents anymore, and for him to wait for Dr. Bowen office to call him back.Electronically si gned by Kailyn Gutierrez CMA at 10/06/2019 8:22 AM PSTTelephone Encounter - Kailyn Gutierrez CMA - 10/04/2019 4:35 PM PSTPatient has seen Bridgette Rios MD at [facility] on 09/28/2019, and h as a phone call into her office as well.Electronically signed by Kailyn Gutierrez CMA at 09/22 4:36 PM PSTTelephone Encounter - Amada Starr - 10/04/2019 9:03 AM Amilcar Krishnamurthy, would like a return call from clinical staff for triage. Patient states that he is doing worse than ever. Will route to clinical staff, please advise. Phone number: [phone] signed by Amada Starr at 10/04/2019 9:17 [...] | | | | | | [place] [address] | | | | | | [phone] | | | | | | | | +--------+ + + + + documented as of this encounter Visit Diagnoses Not on filedocumented in this encounter"
--- OUTSIDE RECORDS SUMMARY | ~2020-06-07 | XMS | Encounter Summary ---
Demographics + + + | Address | [address] [place] [address] [address] | | | [place] [address] | + + + | Home Phone [...] [place] | | | | | [address] | | + + + + + Care Team Providers + +------+ + | Care Data Network Architect Name | Role | Phone | [...] | | | | [address] [place] | [place], [place] | | | | | for Health and | [address] | | | | | Healing, Building [address] | [phone] | | | | | [place], [place] | | | | | | [address] | | | | | | [phone] | | | +--------+ + + + [...]
--- OUTSIDE RECORDS SUMMARY | ~2020-06-07 | XMS | Encounter Summary ---
Demographics + + + | Address | [address] | | | [place] [address] | + + + | Home Phone [...] Providers + +------+ + | Care Electronics Processing Supervisor Name | Role | Phone | + +------+ + PCP | Unavailable | + +------+ + Encounter Details +--------+ + + + + | Date | Type | Department | Care Team | Description | +--------+ + + + + | 12/01/ | Hospital | [facility] | | | | 1997 | Encounter | MED CTR EMERGENCY | | | | | | [address] | | | | | | [place] | | | | | | [address] | | | | | | [phone] | | | +--------+ + + + [...] | | | | | | [place] [address] | | | | | | [phone] | | | | | | | | +--------+ + + + + documented as of this encounter Visit Diagnoses Not on filedocumented in this encounter"
--- OUTSIDE RECORDS SUMMARY | ~2020-06-07 | XMS | Encounter Summary ---
Demographics + + + | Address | [address] | | | [place] [address] | + + + | Home Phone [...] Providers + +------+ + | Care Paper Products Inspector Name | Role | Phone | [...] + | 08/30/ | Telephone | [facility] | Silvia, | Other (test results) | | 2014 | | CARDIOLOGY [address] | Janeen SWITCHBOARD INSPECTOR [address] | | | | | [place], | [place], | | | | | [place] [address] | [place] [id number] | | | | | [phone] | [phone] | | | | | | | [...] | | | | | | [place] [address] | | | | | | [phone] | | | | | | | | +--------+ + + + + documented as of this encounter Visit Diagnoses Not on filedocumented in this encounter"
--- OUTSIDE RECORDS SUMMARY | ~2020-06-07 | XMS | Encounter Summary ---
Demographics + + + | Address | [address] | | | [place] [address] | + + + | Home Phone [...] Team Providers + +------+ + | Care Typewriter Assembler Name | Role | Phone | + +------+ + PCP | Unavailable | + +------+ + Encounter Details +--------+ + + + + | Date | Type | Department | Care Team | Description | +--------+ + + + + | 07/20/ | [facility] | [facility] | Hunter Antunez, | | | 2009 - | Encounter | MED CTR MED ONC | [address] | | | | | [address] [place] | [place] | | | 07/24/ | | [place] [address] | [address] | | | 2009 | | [phone] | | | +--------+ + + + [...] | | | | | | [place] [address] | | | | | | [phone] | | | | | | | | +--------+ + + + + documented as of this encounter Visit Diagnoses Not on filedocumented in this encounter"
--- OUTSIDE RECORDS SUMMARY | ~2020-06-07 | XMS | Encounter Summary ---
Demographics + + + | Address | [address] | | | [place] [address] | + + + | Home Phone [...] Team Providers + +------+ + | Care Neonatal Nurse Practitioner Name | Role | Phone | + +------+ + | Michael Amanda DO | PCP | | + +------+ + Encounter Details +--------+ + + + + | Date | Type | Department | Care Team | Description | +--------+ + + + + | 02/27/ | Hospital | [facility] | Shelly Carter DO | Chest pain; | | 2013 - | Encounter | [facility] | [address] | Pacemaker; | | | | CLINICAL DECISION | [place] [address] | Mild dehydration | | 02/28/ | | [address] | [phone] | | | 2013 | | [place], [place] | | | | | | [address] | | | | | | [phone] | | | +--------+ + + + [...] Service: Hospitalist Author Type: Physician Filed: 03/06/14 4856 Date of Service: 02/28/145 Status: Addendum Software Quality Automation Engineer: Dev Montano MD (Physician) Related Notes: Original Note by Dev Montano MD (Physician) filed at 02/28/14 4277 Patient ID: Pina Gay [id number] 54 y.o. 1960 Admit date: 02/27/2014 Discharge [...] - 99 mg/dL Final Testing performed at [address] [address] BUN Date Value Range Status 02/28/2014 15 8 - 25 mg/dL Final Testing performed at [address] [address] CREATININE Date Value Range Status 02/28/2014 0.74 0.70 - 1.30 mg/dL Final Testing performed at [address] [address] BUN/CREAT Date Value Range Status 02/28/2014 20 Final Testing performed at [address] [address] TOTAL PROTEIN Date Value Range Status 02/28/2014 6.1* 6.3 - 8.2 g/dL Final Testing performed at [address] [address] GLOBULIN Date Value Range Status 02/28/2014 2.1 1.3 - 4.9 g/dL Final Testing performed at [address] [address] TBIL Date Value Range Status 02/28/2014 1.4 0.1 - 1.5 mg/dL Final Testing performed at [address] [address] ALT Date Value Range Status 02/28/2014 27 10 - 65 U/L Final Testing performed at [address] [address] AST Date Value Range Status 02/28/2014 31 10 - 45 U/L Final Testing performed at [address] [address] SODIUM Date Value Range Status 02/28/2014 138 135 - 143 mmol/L Final Testing performed at [address] [address] POTASSIUM Date Value Range Status 02/28/2014 3.4* 3.5 - 4.9 mmol/L Final Testing performed at [address] [address] CHLORIDE Date Value Range Status 02/28/2014 108 99 - 109 mmol/L Final Testing performed at [address] [address] CO2 Date Value Range Status 02/28/2014 21* 23 - 32 mmol/L Final Testing performed at [address] [address] ANION GAP AGAP Date Value Range Status 02/28/2014 12 5 - 20 mmol/L Final Testing performed at [address] [address] Xr Chest Pa And Lateral 02/27/2014 PINA [...] 3-D reconstructi ons were performed using the Flipter 3-D software and sent to PACS. Oral [...] catheterization recently done by Dr. Singletary in [place] in December 2013 at [facility] which showed minimal occlusive disease. One artery was 25% and another was 15%, per patient. I requested official cardiac catheterization report from [place] and still waiting for it to come. 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 You may get these medications from any pharmacy. amLODIPine 5 MG tablet pantoprazole 40 MG tablet Activity: activity as tolerated Diet: cardiac diet Wound Care: not applicable There are no Patient Instructions on file for this visit. Per Pt None Chaka Ortiz MD [address] [facility] [address] In 1 week Ariel Pulido MD [address] [facility] [id number] In 1 week Daljit Singletary MD [address] [facility] [address] [facility] [address] In 1 week Signed: DEV MONTANO 02/28/2014 10:45 AM Addendum:ADDENDUM I just received a cardiac catheterization report from [facility], [place], which was done on December 25, 2013. [...] + + + +---------+ + + | Kanab-3 Fatty | CAPS, one capsule by | [...] 02/28/141211 Date of Service: 02/28/141210 Status: Signed Software Quality Automation Engineer: Jessica Sosa RN (Registered Nurse) Discharge instructions [...] 02/28/1411 Date of Service: 02/28/1411 Status: Signed Software Quality Automation Engineer: Mary Wetzel [facility] (Pharmacist) Clinical Pharmacy Note: Renal Monitoring Pina [...] 02/27/142125 Date of Service: 02/27/141952 Status: Signed Software Quality Automation Engineer: Shelly Carter DO (Physician) [facility] Service: Hospitalist Admission History & Physical Date [...] cardiac testing: Cardiac cath December 2013 at [facility]. Presently, patient denies chest pain, SOB, PAULINO, nausea, vomiting. No recent weight gain or loss, night sweats x 3 nights, constipation, diarrhea, dysuria, polydipsia, polyuria, hea t or cold intolerance. Diarrhea x 2 days, brown in color, 4 stool in the last 24 hours, taki ng Imodium to control it. Patient has not taken any antibiotics. [facility], stopped all pain medication 3 weeks ago, [...] Procedure Component Value Units Date/Time Cardiac Panel [[id number]] (Abnormal) Collected:02/27/14 1747 WBC 10.1 K/uL Updated:02/27/14 [...] 9.3 (H) ng/mL CK-MB Index 1.8 TSH [[id number]] Collected:02/27/141746 Specimen Information:Blood Updated:02/27/14 1823 TSH 0.91 uIU/mL BNP [[id number]] Collected:02/27/141746 Specimen Information:Blood Updated:02/27/141816 BRAIN NATRIURETIC PEPTIDE [...] the patient's c linical course. Dictation software, [employer], used which may contain error for similar [...] 02/27/142025 Date of Service: 02/27/142014 Status: Signed Software Quality Automation Engineer: Doris Romero RN (Registered Nurse) Dr Carter at bedside. Doris Romero RN 02/27/142025 oEliel madrid MD - 02/27/2014 5:18 PM PDT ED Provider Notes by Eliel Calzada DO at 02/27/141717 Author: Eliel Calzada DO Service: (none) Author Type: Physician Filed: 03/01/14 4872 Date of Service: 02/27/141717 Status: Signed Software Quality Automation Engineer: Eliel Calzada DO (Physician) [facility] Department of Emergency Medicine 02/27/2014 5:47 PM History of Present Illness Patient Identification Pina Gay is a 54 y.o. male. Patient information was obtained from patient. History/Exam limitations: none. Patient presented to the Emergency Department by: Car Chief Complaint Chief Complaint Patient presents with Chest Pain Pt presents to the ED with complaints of chest pain. 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 Laboratory Evaluation Results Procedure Component Value Ref Range Date/Time Cardiac Panel [[id number]] (Abnormal) Collected:02/27/14 1747 Order Status:Completed Updated:02/27/14 1823 [...] - 3.6 ng/mL CK-MB Index 1.8 TSH [[id number]] Collected:02/27/141746 Order Status:Completed Updated:02/27/14 182 Specimen Information:Blood TSH 0.91 0.45 - 5.10 uIU/mL BNP [[id number]] Collected:02/27/141746 Order Status:Completed Updated:02/27/141816 Specimen Information:Blood BRAIN NATRIURETIC PEPTIDE 5.7 0 - 100 pg/mL POC cardiac troponin [[id number]] Collected:02/27/141748 Order Status:Completed Updated:02/27/14 180 POC CARDIAC TROPONIN 0.00 0.00 - 0.10 ng/mL I personally reviewed the lab results and they have been posted to the chart. Pertinent po sitive and negative findings have been addressed appropriately. Radiology and EKG Evaluation EKG from 1722 Normal arterially paced rhythm at [address] and [place] Normal QRS and [place] Normal QT and QTc Normal ST/T without [...] Documented by Eliel Calzada DO (02/27/14 182, [facility] Emergency Department, Emergency Medicine) Chest X-ray: No [...] aortic aneurym ON CT chest needs [address] [employer] [facility] [address] Ariel Pulido MD In 1 week [address] [facility] [address] Daljit Singletary MD In 1 week [address] [facility] [address] Per Pt None Discharge Medications: New Prescriptions [...] 105 Date of Service: 02/28/141058 Status: Signed Software Quality Automation Engineer: Jessica Sosa RN (Registered Nurse) Problem: Pain [...] | | | | | | [place] [address] | | | | | | [phone] | | | | | | | [...] EXTERNAL | | | | performed at [facility];[address] | | LAB | | | | [address];[place], [place] | | | | | | [address] | | | | + + + [...] | | | | | | ACUTE [place] Testing | | | | | | performed at [facility];[address] | | | | | | [facility];[place], [place] | | | | | | [address] | | | | + + + [...] | | | | | [place] [address] | | | | + + + + + + | Non- | 4.68Comment: Testing | 4.20 - 5.70 | EXTERNAL | | | Red Blood | performed at [facility], [address] | M/uL | LAB | | | Cells | [address], | | | | | Counted | [place] [address] | | | | + + + + + + | Hemoglobin | 15.3Comment: Testing | 13.2 - 17.0 | EXTERNAL | | | | performed at [facility], [address] | g/dL | LAB | | | | [address], | | | | | | [place] [address] | | | | + + + + + + | Hematocrit, | 44.2Comment: Testing | 39.0 - 50.0 % | EXTERNAL | | | POC | performed at [facility], [address] | | LAB | | | | [address], | | | | | | [place] [address] | | | | + + + [...] | | | | | [place] [address] | | | | + + + + + + | MCHC | 34.5Comment: Testing | 32.0 - 35.5 | EXTERNAL | | | | performed at [facility], [address] | g/dL | LAB | | | | [address], | | | | | | [place] [address] | | | | + + + + + + | RDW-CV | 45.5Comment: Testing | 37 - 53 fl | EXTERNAL | | | | performed at [facility], [address] | | LAB | | | | [address], | | | | | | [place] [address] | | | | + + + + + + | Platelet | 156Comment: Testing | 150 - 400 K/uL | EXTERNAL | | | Count | performed at [facility], [address] | | LAB | | | Plasma | [address], | | | | | | [place] [address] | | | | + + + + + + | MPV | 8.8Comment: Testing | fl | EXTERNAL | | | | performed at [facility], [address] | | LAB | | | | [address], | | | | | | [place] [address] | | | | + + + + + + | Differentia | AUTOMATEDComment: | | EXTERNAL | | | l Type | Testing performed at | | LAB | | | | [facility], [address] | | | | | | [place] | | | | | | [address] | | | | + + + + + + | % Segmented | 57.7Comment: Testing | % | EXTERNAL | | | | performed at [facility], [address] | | LAB | | | Neutrophils | [address], | | | | | | [place] [address] | | | | + + + + + + | % | 31.8Comment: Testing | % | EXTERNAL | | | Lymphocytes | performed at [facility], [address] | | LAB | | | | [address], | | | | | | [place] [address] | | | | + + + + + + | % Monocytes | 9.2Comment: Testing | % | EXTERNAL | | | | performed at [facility], [address] | | LAB | | | | [address], | | | | | | [place] [address] | | | | + + + + + + | % | 0.9Comment: Testing | % | EXTERNAL | | | Eosinophils | performed at [facility], [address] | | LAB | | | | [address], | | | | | | [place] [address] | | | | + + + + + + | % Basophils | 0.4Comment: Testing | % | EXTERNAL | | | | performed at [facility], [address] | | LAB | | | | [address], | | | | | | [place] [address] | | | | + + + + + + | Absolute | 3.9Comment: Testing | 1.9 - 7.4 K/uL | EXTERNAL | | | Segmented | performed at [facility], [address] | | LAB | | | Neutrophils | [address], | | | | | | [place] [address] | | | | + + + + + + | Absolute | 2.1Comment: Testing | 1.0 - 3.9 K/uL | EXTERNAL | | | Lymphocytes | performed at [facility], [address] | | LAB | | | | [address], | | | | | | [place] [address] | | | | + + + + + + | Absolute | 0.6Comment: Testing | 0 - 0.8 K/uL | EXTERNAL | | | Monocytes | performed at [facility], [address] | | LAB | | | | [address], | | | | | | [place] [address] | | | | + + + + + + | Absolute | 0.1Comment: Testing | 0 - 0.5 K/uL | EXTERNAL | | | Eosinophils | performed at [facility], [address] | | LAB | | | | [address], | | | | | | [place] [address] | | | | + + + + + + | Absolute | 0.0Comment: Testing | 0 - 0.1 K/uL | EXTERNAL | | | Basophils | performed at [facility], [address] | | LAB | | | | [address], | | | | | | [place] [address] | | | | + + + [...] EXTERNAL | | | | performed at [facility], [address] | | LAB | | | | [address], | | | | | | [place] [address] | | | | + + + [...] EXTERNAL | | | | performed at [facility], [address] | | LAB | | | | [address], | | | | | | [place] [address] | | | | + + + [...] EXTERNAL | | | | performed at [facility];[address] | | LAB | | | | [address];[place] | | | | | | [address] | | | | + + + [...] | | | | | [place] [address] | | | | + + + + + + | Triglycerid | 37Comment: Testing | mg/dL | EXTERNAL | | | es | performed at [facility], [address] | | LAB | | | | [address], | | | | | | [place] [address] | | | | + + + + + + | HDL | 35 (L)Comment: Testing | mg/dL | EXTERNAL | | | | performed at [facility], [address] | | LAB | | | | [address], | | | | | | [place] [address] | | | | + + + + + + | LDL, | 67Comment: Testing | mg/dL | EXTERNAL | | | Calculated | performed at [facility], [address] | | LAB | | | | [address], | | | | | | [place] [address] | | | | + + + [...] | | | | | [place] [address] | | | | + + + + + + | K | 3.4 (L)Comment: Testing | 3.5 - 4.9 | EXTERNAL | | | | performed at [facility], [address] | mmol/L | LAB | | | | [address], | | | | | | [place] [address] | | | | + + + + + + | Cl | 108Comment: Testing | 99 - 109 mmol/L | EXTERNAL | | | | performed at [facility], [address] | | LAB | | | | [address], | | | | | | [place] [address] | | | | + + + + + + | CO2 | 21 (L)Comment: Testing | 23 - 32 mmol/L | EXTERNAL | | | | performed at [facility], [address] | | LAB | | | | [address], | | | | | | [place] [address] | | | | + + + + + + | Anion Gap | 12Comment: Testing | 5 - 20 mmol/L | EXTERNAL | | | | performed at [facility], [address] | | LAB | | | | [address], | | | | | | [place] [address] | | | | + + + + + + | Glucose, | 107 (H)Comment: Testing | 65 - 99 mg/dL | EXTERNAL | | | Fasting | performed at [facility], [address] | | LAB | | | | [address], | | | | | | [place] [address] | | | | + + + + + + | BUN | 15Comment: Testing | 8 - 25 mg/dL | EXTERNAL | | | | performed at [facility], [address] | | LAB | | | [address], | | | | | | [place] [address] | | | | + + + + + + | Creatinine | 0.74Comment: Testing | 0.70 - 1.30 | EXTERNAL | | | | performed at [facility], [address] | mg/dL | LAB | | | | [address], | | | | | | [place] [address] | | | | + + + + + + | BUN/Creatin | 20Comment: Testing | | EXTERNAL | | | ine Ratio | performed at [facility], [address] | | LAB | | | | [address], | | | | | | [place] [address] | | | | + + + + + + | Calcium | 8.9Comment: Testing | 8.5 - 10.2 | EXTERNAL | | | | performed at [facility], [address] | mg/dL | LAB | | | | [address], | | | | | | [place] [address] | | | | + + + + + + | Protein, | 6.1 (L)Comment: Testing | 6.3 - 8.2 g/dL | EXTERNAL | | | Total | performed at [facility], [address] | | LAB | | | | [address], | | | | | | [place] [address] | | | | + + + + + + | Albumin | 4.0Comment: Testing | 3.6 - 5.0 g/dL | EXTERNAL | | | | performed at [facility], [address] | | LAB | | | | [address], | | | | | | [place] [address] | | | | + + + + + + | Globulin | 2.1Comment: Testing | 1.3 - 4.9 g/dL | EXTERNAL | | | | performed at [facility], [address] | | LAB | | | | [address], | | | | | | [place] [address] | | | | + + + + + + | A/G Ratio | 1.9Comment: Testing | 1.0 - 2.4 | EXTERNAL | | | | performed at [facility], [address] | | LAB | | | | [address], | | | | | | [place] [address] | | | | + + + + + + | Bilirubin | 1.4Comment: Testing | 0.1 - 1.5 mg/dL | EXTERNAL | | | Total | performed at [facility], [address] | | LAB | | | | [address], | | | | | | [place] [address] | | | | + + + + + + | ALP, | 46Comment: Testing | 35 - 115 U/L | EXTERNAL | | | External | performed at [facility], [address] | | LAB | | | | [address], | | | | | | [place] [address] | | | | + + + + + + | AST | 31Comment: Testing | 10 - 45 U/L | EXTERNAL | | | | performed at [facility], [address] | | LAB | | | | [address], | | | | | | [place] [address] | | | | + + + + + + | ALT | 27Comment: Testing | 10 - 65 U/L | EXTERNAL | | | | performed at [facility], [address] | | LAB | | | | [address], | | | | | | [place] [address] | | | | + + + [...] | | | | | [place] [address] | | | | + + + [...] + + | Historically converted procedure from [facility] | EXTERNAL LAB | + + + [...] EXTERNAL | | | | performed at [facility] | | LAB | | | | [address];[place], [place] | | | | | | [address] | | | | + + + [...] | | | | | | ACUTE [place] Testing | | | | | | performed at [facility];[address] | | | | | | [facility];[place], [place] | | | | | | [address] | | | | + + + [...] EXTERNAL | | | | performed at [facility];[address] | | LAB | | | | [address];[place], [place] | | | | | | [address] | | | | + + + [...] were | | | performed using the Flipter 3-D software and sent to PACS. Oral [...] reconstructions were performed | | using the [employer] 3-D software and sent to PACS. Oral [...] EXTERNAL | | | | performed at [facility];[address] | | LAB | | | [address];[place] | | | | | | [address] | | | | + + + + + -+ | Non- | 5.19Comment: Testing | 4.20 - 5.70 | EXTERNAL | | | Red Blood | performed at [facility];[address] | M/uL | LAB | | | Cells | [address];[place] | | | | | Counted | [address] | | | | + + + + + -+ | Hemoglobin | 16.8Comment: Testing | 13.2 - 17.0 | EXTERNAL | | | | performed at [facility];[address] | g/dL | LAB | | | | [address];[place] | | | | | | [address] | | | | + + + + + -+ | Hematocrit, | 49.5Comment: Testing | 39.0 - 50.0 % | EXTERNAL | | | POC | performed at [facility];[address] | | LAB | | | [address];[place] | | | | | | [address] | | | | + + + + + -+ | MCV | 95.4Comment: Testing | 80.0 - 100.0 fl | EXTERNAL | | | | performed at [facility];[address] | | LAB | | | [address];[place] | | | | | | [address] | | | | + + + + + -+ | MCH | 32.4Comment: Testing | 27.0 - 34.0 pg | EXTERNAL | | | | performed at [facility];[address] | | LAB | | | | [address];[place] | | | | | | [address] | | | | + + + + + -+ | MCHC | 34.0Comment: Testing | 32.0 - 35.5 | EXTERNAL | | | | performed at [facility];[address] | g/dL | LAB | | | | [address];[place] | | | | | | [address] | | | | + + + + + -+ | RDW-CV | 46.8Comment: Testing | 37 - 53 fl | EXTERNAL | | | | performed at [facility];[address] | | LAB | | | | [address];[place] | | | | | | [address] | | | | + + + + + -+ | Platelet | 179Comment: Testing | 150 - 400 K/uL | EXTERNAL | | | Count | performed at [facility];[address] | | LAB | | | Plasma | [address];[place] | | | | | | [address] | | | | + + + + + -+ | MPV | 8.6Comment: Testing | fl | EXTERNAL | | | | performed at [facility];[address] | | LAB | | | | [address];[place] | | | | | | [address] | | | | + + + + + -+ | Differentia | AUTOMATEDComment: | | EXTERNAL | | | l Type | Testing performed at | | LAB | | | | [facility];[address];[place] [address] | | | | + + + + + -+ | % Segmented | 62.4Comment: Testing | % | EXTERNAL | | | | performed at [facility];[address] | | LAB | | | Neutrophils | [address];[place] | | | | | | [address] | | | | + + + + + -+ | % | 26.3Comment: Testing | % | EXTERNAL | | | Lymphocytes | performed at [facility];[address] | | LAB | | | | [address];[place] | | | | | | [address] | | | | + + + + + -+ | % Monocytes | 10.3Comment: Testing | % | EXTERNAL | | | | performed at [facility];[address] | | LAB | | | | [address];[place] | | | | | | [address] | | | | + + + + + -+ | % | 0.5Comment: Testing | % | EXTERNAL | | | Eosinophils | performed at [facility];[address] | | LAB | | | | [address];[place] | | | | | | [address] | | | | + + + + + -+ | % Basophils | 0.5Comment: Testing | % | EXTERNAL | | | | performed at [facility];[address] | | LAB | | | | [address];[place] | | | | | | [address] | | | | + + + + + -+ | Absolute | 6.3Comment: Testing | 1.9 - 7.4 K/uL | EXTERNAL | | | Segmented | performed at [facility];[address] | | LAB | | | Neutrophils | [address];[place] | | | | | | [address] | | | | + + + + + -+ | Absolute | 2.7Comment: Testing | 1.0 - 3.9 K/uL | EXTERNAL | | | Lymphocytes | performed at [facility];[address] | | LAB | | | | [address];[place] | | | | | | [address] | | | | + + + + + -+ | Absolute | 1.0 (H)Comment: Testing | 0 - 0.8 K/uL | EXTERNAL | | | Monocytes | performed at [facility];[address] | | LAB | | | | [address];[place] | | | | | | [address] | | | | + + + + + -+ | Absolute | 0.0Comment: Testing | 0 - 0.5 K/uL | EXTERNAL | | | Eosinophils | performed at [facility];[address] | | LAB | | | | [address];[place] | | | | | | [address] | | | | + + + + + -+ | Absolute | 0.1Comment: Testing | 0 - 0.1 K/uL | EXTERNAL | | | Basophils | performed at [facility];[address] | | LAB | | | | [address];[place] | | | | | | [address] | | | | + + + + + -+ | Na | 139Comment: Testing | 135 - 143 | EXTERNAL | | | | performed at [facility];[address] | mmol/L | LAB | | | | [address];[place] | | | | | | [address] | | | | + + + + + -+ | K | 3.4 (L)Comment: Testing | 3.5 - 4.9 | EXTERNAL | | | | performed at [facility];[address] | mmol/L | LAB | | | | [address];[place] | | | | | | [address] | | | | + + + + + -+ | Cl | 108Comment: Testing | 99 - 109 mmol/L | EXTERNAL | | | | performed at [facility];[address] | | LAB | | | | [address];[place] | | | | | | [address] | | | | + + + + + -+ | CO2 | 21 (L)Comment: Testing | 23 - 32 mmol/L | EXTERNAL | | | | performed at [facility];[address] | | LAB | | | | [address];[place] | | | | | | [address] | | | | + + + + + -+ | Anion Gap | 14Comment: Testing | 5 - 20 mmol/L | EXTERNAL | | | | performed at [facility];[address] | | LAB | | | | [address];[place] | | | | | | [address] | | | | + + + + + -+ | Glucose, | 124 (H)Comment: Testing | 65 - 99 mg/dL | EXTERNAL | | | Fasting | performed at [facility] [place];[address] | | LAB | | | | [address];[place] | | | | | | [address] | | | | + + + + + -+ | BUN | 20Comment: Testing | 8 - 25 mg/dL | EXTERNAL | | | | performed at [facility] [place];[address] | | LAB | | | | [address];[place] | | | | | | [address] | | | | + + + + + -+ | Creatinine | 0.97Comment: Testing | 0.70 - 1.30 | EXTERNAL | | | | performed at [facility] [place];[address] | mg/dL | LAB | | | | [address];[place] | | | | | | [address] | | | | + + + + + -+ | BUN/Creatin | 21Comment: Testing | | EXTERNAL | | | ine Ratio | performed at [facility] [place];[address] | | LAB | | | [address];[place] | | | | | | [address] | | | | + + + + + -+ | Calcium | 8.7Comment: Testing | 8.5 - 10.2 | EXTERNAL | | | | performed at [facility];888 | mg/dL | LAB | | | | [address];[place] | | | | | | [address] | | | | + + + + + -+ | Protein, | 7.6Comment: Testing | 6.3 - 8.2 g/dL | EXTERNAL | | | Total | performed at [facility];[address] | | LAB | | | | [address];[place] | | | | | | [address] | | | | + + + + + -+ | Albumin | 4.2Comment: Testing | 3.6 - 5.0 g/dL | EXTERNAL | | | | performed at [facility];[address] | | LAB | | | | [address];[place] | | | | | | [address] | | | | + + + + + -+ | Globulin | 3.4Comment: Testing | 1.3 - 4.9 g/dL | EXTERNAL | | | | performed at [facility];[address] | | LAB | | | | [address];[place] | | | | | | [address] | | | | + + + + + -+ | A/G Ratio | 1.2Comment: Testing | 1.0 - 2.4 | EXTERNAL | | | | performed at [facility];[address] | | LAB | | | | [address];[place] | | | | | | [address] | | | | + + + + + -+ | Bilirubin | 1.1Comment: Testing | 0.1 - 1.5 mg/dL | EXTERNAL | | | Total | performed at [facility];[address] | | LAB | | | | [address];[place] | | | | | | [address] | | | | + + + + + -+ | ALP, | 77Comment: Testing | 35 - 115 U/L | EXTERNAL | | | External | performed at [facility];[address] | | LAB | | | | [address];[place] | | | | | | [address] | | | | + + + + + -+ | AST | 35Comment: Testing | 10 - 45 U/L | EXTERNAL | | | | performed at [facility];[address] | | LAB | | | | [address];[place] | | | | | | [address] | | | | + + + + + -+ | ALT | 43Comment: Testing | 10 - 65 U/L | EXTERNAL | | | | performed at [facility];[address] | | LAB | | | | [address];[place] | | | | | | [address] | | | | + + + [...] | | | | | | at [facility];[address] | | | | [address];[place] [address] | | | | + + + + + -+ | CK, Total | 510 (H)Comment: Testing | 55 - 400 U/L | EXTERNAL | | | | performed at [facility];[address] | | LAB | | | | [address];[place] | | | | | | [address] | | | | + + + [...] | | | | | performed at [facility];[address] | | | | | | [address];[place] | | | | | | [address] | | | | + + + + + -+ | aPTT, | 24Comment: Testing | 23 - 32 seconds | EXTERNAL | | | Patient | performed at [facility];[address] | | LAB | | | | [address];[place] | | | | | | [address] | | | | + + + + + -+ | CK-MB | 9.3 (H)Comment: Testing | 0.5 - 3.6 ng/mL | EXTERNAL | | | | performed at [facility];[address] | | LAB | | | | [address];[place] | | | | | | [address] | | | | + + + [...] EXTERNAL | | | | performed at [facility];888 | uIU/mL | LAB | | | | [address];[place], [place] | | | | | | [address] | | | | + + + [...] EXTERNAL | | | | performed at [facility] | | LAB | | | | [facility], [place] | | | | | | [address] | | | | + + + [...] (500), | | | | | | design editor TERESE NINA (2) | | | | | | on 02/27/2014 6:56:17 PM | | | | + + + + + + + + | Specimen | + + | | + + + + + | Narrative | Performed At | + + + | [facility] | EXTERNAL LAB | + [...]
--- OUTSIDE RECORDS SUMMARY | ~2020-06-07 | XMS | Encounter Summary ---
Demographics + + + | Address | [address] | | | [place] [address] | + + + | Home Phone [...] Providers + +------+ + | Care Electronic Industrial Controls Mechanic Name | Role | Phone | [...] unspecified | [address] | [address] | | | | | type | [address] | [place], | | | | | Procedures | [place], | [place] | | | | | [place] | [place] [address] | [address] | | | | | Stress Test | Phone: | Phone: | | | | | (Vasodilator | [phone] | [phone] | | | | | ) CHG | Fax: | Fax: | | | | | MYOCARDIAL | [phone] | [phone] | | | | | SPECT | | | | | | | MULTIPLE | | | | | | | STUDIES [place] | | | | | | | CV STRS TST | | | | | | | XERS&/OR RX | | | | | | | CONT ECG W/O | | | | | | | I&R [place] | | | | | | [...] + + | 07/21/ | Hospital | [facility] | Daljit Singletary, | | | 2018 | Encounter | MED CTR NUCLEAR | MD [address] | | | | | MEDICINE [address] | [address], | | | | | [place] | [place] [address] | | | | | [place] [address] | [phone] | | | | | [phone] | | | +--------+ + + + [...] + + + +---------+ + + | Drybranch-3 Fatty | CAPS, one capsule by | [...] | | | | | | [place] [address] | | | | | | [phone] | | | | | | | [...] | | | | | | Starting [facility] 07/21/18 at 1224, For | | | | | | | 1 dose, Nuclear Medicine | | | | | | + +--------+ + +------+------+ +---+---+ | | | +---+---+ documented in this encounter"
--- OUTSIDE RECORDS SUMMARY | ~2020-06-07 | XMS | Encounter Summary ---
Demographics + + + | Address | [address] | | | [place] [address] | + + + | Home Phone [...] Team Providers + +------+ + | Care Dog Raiser Name | Role | Phone | [...] | Ascending | [place], | [address] | | | | | aortic | [address] | [address], | | | | | aneurysm | [address] | [place] | | | | | ([facility]) | [place] | [address] | | | | | Procedures | [place], | Phone: | | | | | ECHO | [place] | [phone] | | | | | Complete | [address] | Fax: | | | | | | Phone: | [phone] | | | | | | [phone] | | | | | | | Fax: | | | | | | | [phone] | | +--------+--------+ + + + + [...] | Ascending | [place], | [address] | | | | | aortic | [address] | Lane, | | | | | aneurysm | [address] | [place] | | | | | ([facility]) | [place] | [address] | | | | | Procedures | [place], | Phone: | | | | | ECHO | [place] | [phone] | | | | | Complete | [address] | Fax: | | | | | | Phone: | [phone] | | | | | | [phone] | | | | | | | Fax: | | | | | | | [phone] | | +--------+--------+ + + + + Encounter Details +--------+ + + + + | Date | Type | Department | Care Team | Description | +--------+ + + + + | 05/01/ | Hospital | [facility] | [place], | Ascending thoracic | | 2020 | Encounter | MED CTR ECHO [address] | Janeen SINGLE NEEDLE TUFTING MACHINE OPERATOR [address] | aortic aneurysm | | | | [place] | [place], | ([facility]); Ascending | | | | [place] [address] | [place] [address] | aortic aneurysm | | | | [phone] | [phone] | ([facility]) | [...] | | | | | | | guidiville coronary | | | | | | | artery of [place] | | | | | | | [...] 4 | tablet | | 19 | | | tablet | HOURS NEEDED FOR [...] + + + +---------+ + + | [place]-3 Fatty | CAPS, one capsule by | [...] + | | | | 0 | // | | | oxyCODONE-acetaminop | | | [...] W | | | | | | [place], | | | | | | [place] [address] | | | | | | [phone] | | | | | | | [...] | | | | | | n [place] | | | | | + +--------+ [...]
--- OUTSIDE RECORDS SUMMARY | ~2020-06-07 | XMS | Encounter Summary ---
Demographics + + + | Address | [address] [place] [address] [address] | | | [place] [address] | + + + | Home Phone | | + + + | Preferred Language | Unknown | + + + | Marital Status | | + + + | Religion Affiliation | Unknown | + + + [...] [place] | | | | | [address] | | + + + + + Care Team Providers + +------+ + | Care Manager Culture Name | Role | Phone | + [...] as of this encounter Progress Notes Interface, Orthopedic Shoes Salesperson In - 07/19/2006 3:05 AM PDTCLINIC DATE: 06/13/2002 ORTHOPEDIC CLINIC REFERRING PHYSICIAN: Eugene Vera D.O. [address] [place] [address] Mr. Sanchez is a new patient. He [...] proceed. Martell Allen M.D. ELIZABETH / KATTY [id number] / [id number] / [id number] / [id number] cc: Eugene Vera D.O. [address] [place] [id number] signed by Interface, Orthopedic Shoes Salesperson In at 07/19/2006 3:0 5 AM PDTdocumented in this encounter Plan of Treatment Not on filedocumented as of this encounter Visit Diagnoses Not on filedocumented in this encounter
--- OUTSIDE RECORDS SUMMARY | ~2020-06-07 | XMS | Encounter Summary ---
Demographics + + + | Address | [address] | | | [place] [address] | + + + | Home Phone [...] Team Providers + +------+ + | Care Filling Station Laborer Name | Role | Phone | [...] + + | 06/05/ | Telephone | [facility] | Kirk French | Other | | 2020 | | [facility] | MD [address] | | | | | [facility] | [address] | | | | | [address] | [place] [address] | | | | | [place], [place] | [phone] | | | | | [address] | | | | | | [phone] | | | +--------+ + + + [...] Miscellaneous Notes Telephone Encounter - Geri Bear, Frame Welder Cargo Utility Trailers - 06/06/2020 9:18 AM PDTCan this b [...] that referred him there. Call back at [phone].. If this is a symptom based call, was patient offered triage? Not Applicable If this is a symptom based call and you were unable to immediately transfer the call to a lorraine bellamy catalytic converter operator helper was caller made aware that if at [...] | | | | | | [place] [address] | | | | | | [phone] | | | | | | | | +--------+ + + + + documented as of this encounter Visit Diagnoses Not on filedocumented in this encounter"
--- OUTSIDE RECORDS SUMMARY | ~2020-06-07 | XMS | Encounter Summary ---
Demographics + + + | Address | [address] | | | [place] [address] | + + + | Home Phone [...] Team Providers + +------+ + | Care Aviation Electronic Warfare Operator Name | Role | Phone | [...] + + | 01/28/ | Refill | [facility] | Kirk French | Medication Refill | | 2019 | | [facility] | MD [address] | | | | | [address] | [address] | | | | | [address] | [place] [address] | | | | | [place], [place] | [phone] | | | | | [address] | | | | | | [phone] | | | +--------+--------+ + + + [...] | | | | | | [place] [address] | | | | | | [phone] | | | | | | | | +--------+ + + + + documented as of this encounter Visit Diagnoses Not on filedocumented in this encounter"
--- OUTSIDE RECORDS SUMMARY | ~2020-06-07 | XMS | Encounter Summary ---
Demographics + + + | Address | [address] | | | [place] [address] | + + + | Home Phone [...] Providers + +------+ + | Care Community Service Technician Name | Role | Phone [...] + + | 12/23/ | Telephone | [facility] | Daljit Singletary, | Other (question | | 2015 | | CARDIOLOGY [address] | MD [address] [place] | about diet | | | | [place], | [place], | medication) | | | | [place] [address] | [place] [address] | | | | | [phone] | [phone] | | | | | | | [...] | | | | | | [place] [address] | | | | | | [phone] | | | | | | | | +--------+ + + + + documented as of this encounter Visit Diagnoses Not on filedocumented in this encounter"
--- OUTSIDE RECORDS SUMMARY | ~2020-06-07 | XMS | Encounter Summary ---
Demographics + + + | Address | [address] | | | [place] [address] | + + + | Home Phone [...] Providers + +------+ + | Care Senior Search Marketing Analyst Name | Role | Phone | + +------+ + | Kirk French MD | PCP | | + +------+ + Reason for Visit + +--------+ + | Reason | Onset | Comments | | | Date | | + +--------+ + | Procedure | 12/21/ | | | | 2020 | | [...] [place] | | | | | [address], [place] | [place] [address] | | | | | [address] | [phone] | | | | | [phone] | | | +--------+ + + + [...] Telephone Encounter - Lisa Pisano RN - 01/01/2020 9:23 AM PSTPatient arrived in clinic this morning advising he was bleeding; he states that he was at [facility] and they wanted to take him to [facility] but he declined. He requested to be seen. Brought patient back to exam room; advised what I could provide him was scheduling; however , if he was actively bleeding he should go to ED; he refused; he proceeded to show me travis eldridge he took this morning of his blood going down his leg and in the toilet. Advised patient that what Dr. Gandhi suggested was scheduling him for colonoscopy and then h ave he report to our office for capsule endoscopy once he was discharged. He was agreeable w ith this; Scheduled pt for colon with prop sedation (pain meds/Pacemaker) on Wed01/22/[address]; standard prep reviewed: low fiber diet Fri/Sat before procedure; Mon follow a clear liquid day before with bowel prep at 4pm until complete; Medications , surg/ med hx, and allergies were reviewed; pt has bowel prep from prev schedule (12/25/2019); info malik ruff to pt; completed case request order, notes to MA. elephone Encoun Lisa Rader RN - 12/25/2019 10:23 AM PSTAdvised patient I would run the refe rral by Dr. Gandhi to see if he was okay with doing an upper/lower endoscopy with pillcam rg cement; once he reviews referral will call to schedule; will need prop; offered afternoon on 01/04 or 01/09. elephone Anastacio Alejandro - 12/21/2019 11:50 AM PSTName of Caller:Shayna Sanchez "Amilcar" Name of Patient:Moe Sanchez "Amilcar" Reason for call: Patient called and stated that he spoke to Allyson CHILDRESS in Dr. Rios off ice at [facility]. Patient stated that Dr. Rios recommend that he have a colon procedure RAFFI d ue to his bleeding. Patient stated that he would like to do his pill and colon at the same t sherin. Patient would like to cancel his pill cam appt on DEC 25 2019. Patient would like to do colon here at [facility]. Copies of referral have been sent to scan, in Dr. Gandhi box and placed in Lisa CHILDRESS desk . Patient aware of Dr. Gandhi and Lisa borjas. Provider/Nurse: [place]/ Call back number:[phone] documented in this encou nter Plan of [...] [address] | | | | | | [place], | | | | | | [place] [address] | | | | | | [phone] | | | | | | | [...] continuous | + + documented in this encounter
--- OUTSIDE RECORDS SUMMARY | ~2020-06-07 | XMS | Encounter Summary ---
Demographics + + + | Address | [address] | | | [place] [address] | + + + | Home Phone [...] Team Providers + +------+ + | Care Teleprinter Installer Name | Role | Phone | + +------+ + PCP | Unavailable | + +------+ + Encounter Details +--------+ + + + + | Date | Type | Department | Care Team | Description | +--------+ + + + + | 09/29/ | Hospital | [facility] | | | | 1995 | Encounter | MED CTR EMERGENCY | | | | | | [address] | | | | | | [place] | | | | | | [address] | | | | | | [phone] | | | +--------+ + + + [...] | | | | | | [place] [address] | | | | | | [phone] | | | | | | | | +--------+ + + + + documented as of this encounter Visit Diagnoses Not on filedocumented in this encounter"
--- OUTSIDE RECORDS SUMMARY | ~2020-06-07 | XMS | Encounter Summary ---
Demographics + + + | Address | [address] | | | [place] [address] | + + + | Home Phone [...] Team Providers + +------+ + | Care Oceanographer Geological Name | Role | Phone | + +------+ + | Michael Amanda DO | PCP | | + +------+ + Encounter Details +--------+ + + + + | Date | Type | Department | Care Team | Description | +--------+ + + + + | 09/22/ | Hospital | [facility] | Bahman Gant MD | | | 2012 | Encounter | MED CTR XRAY [address] | [address] | | | | | [place] | [address] [place] | | | | | [place] [address] | [place] [address] | | | | | [phone] | [phone] | | | | | | | [...] + + + +---------+ + + | [place]-3 Fatty | CAPS, one capsule by | [...] | | | | | | [place] [address] | | | | | | [phone] | | | | | | | | +--------+ + + + + documented as of this encounter Visit Diagnoses Not on filedocumented in this encounter"
--- OUTSIDE RECORDS SUMMARY | ~2020-06-07 | XMS | Encounter Summary ---
Demographics + + + | Address | [address] | | | [place] [address] | + + + | Home Phone [...] + +------+ + | Care Computer Programmer Analyst Name | Role | Phone | [...] [address] | | | | | [place], | [place], | | | | | [place] [address] | [place] [address] | | | | | [phone] | [phone] | | | | | | | [...] | | | | | | [place] [address] | | | | | | [phone] | | | | | | | [...]
--- OUTSIDE RECORDS SUMMARY | ~2020-06-07 | XMS | Encounter Summary ---
Demographics + + + | Address | [address] | | | [place] [address] | + + + | Home Phone [...] Team Providers + +------+ + | Care Vamp Throater Name | Role | Phone | + [...] 2016 | | CARDIOLOGY [address] | WAD COMPRESSOR OPERATOR ADJUSTER [address] | | | | | [place], | [place], [place] | | | | | [place] [address] | [address] | | | | | [phone] | | | +--------+--------+ + + + [...] | | | | | | [place] [address] | | | | | | [phone] | | | | | | | | +--------+ + + + + documented as of this encounter Visit Diagnoses Not on filedocumented in this encounter"
--- OUTSIDE RECORDS SUMMARY | ~2020-06-07 | XMS | Encounter Summary ---
Demographics + + + | Address | [address] | | | [place] [address] | + + + | Home Phone [...] Providers + +------+ + | Care Construction Mgr Name | Role | Phone | + +------+ + | Michael Amanda DO | PCP | | + +------+ + Encounter Details +--------+ + + + + | Date | Type | Department | Care Team | Description | +--------+ + + + + | 01/31/ | Hospital | [facility] | Adrian Gutierrez MD | | | 2012 | Encounter | [facility] | [address] | | | | | EMERGENCY CENTER | [place], [place] | | | | | [address] | [address] | | | | | [place] | [phone] | | | | | [address] | | | | | | [phone] | | | +--------+ + + + [...] + + +---------+ + + | [place]-3 Fatty | CAPS, one capsule by | [...] documented as of this encounter ED Notes Adrian Gutierrez MD - 02/02/2013 4:14 PM PDT PATIENT NAME: MOE GAY TREATMENT DATE: 01/31/2013 ADMISSION DATE: 01/31/2013 Age/Sex: 52Y / M : [id number] / [id number] CHIEF COMPLAINT: Dizziness with chest discomfort. HISTORY OF PRESENT ILLNESS: This is a 52-year-old male here from [place], [place]. Appare ntly, he has a history of bradycardia and a pacemaker, also PVCs or PACs, and is on a stabl e dose of metoprolol, but was referred to Dr. Gambino here in [place] for ablation procedur e. This was undertaken yesterday and he says not successfully. He was started on new medica tion, diltiazem, has had several doses, felt fine until this evening. He had just gotten a sandwich at [employer], and suddenly became nauseous, lightheaded, and describes blurred visio n transiently, binocular, with palpitations, minimal shortness of breath and felt as though he was about to pass out; he did not. He had vague chest discomfort, which seems to been t ransient and is resolved. The patient denies leg edema, no significant cough or respiratory distress at this time. He is generally feeling better but this did apparently scare him s o he presents here for reevaluation. He tells me he was planning on staying overnight befor e going back home tomorrow. He has a primary boring and filling machine operator that he sees in [place]. The patient's pacemaker has been there for roughly three years and he is unaware of any trouble or impending problems with the battery. He denies any chest pain at this time, and no sig nificant headache pain. No does not have any known history of coronary artery disease. REVIEW OF SYSTEMS: Ten systems otherwise reviewed and are negative except as noted above. PAST MEDICAL HISTORY: Bradycardia and pacemaker placement, arrhythmia, attempted ablation yesterday, appendectomy, hypercholesterolemia, and gastroesophageal reflux disease. ALLERGIES: Penicillin, clarithromycin and hydrocodone. CURRENT MEDICATIONS: Metoprolol, aspirin, ranitidine, pravastatin, promethazine, oxycodone , morphine sulfate, Valacyclovir, docusate, ascorbic acid, salmon oil and omega-3 fatty aci ds, and newly started on diltiazem. SOCIAL HISTORY: He is and listed as disabled. He lives in [place]. He says his d octor is Dr. Singletary. He is a nonsmoker. PHYSICAL EXAMINATION: GENERAL: A robust-appearing 52-year-old male, slightly anxious, but in no obvious distress . VITAL SIGNS: Initial blood pressure 135/93, heart rate 71 and seems MOE GAY ADM:01/31/13 [id number] [facility] EMERGENCY DEPARTMENT RECORD [id number] [facility] Adrian rosenthal MD E-Sign: [facility] THIS REPORT IS CONFIDENTIAL AND NOT TO BE RELEASED WITHOUT PROPER AUTHORIZATION. [facility] regular, respirations 16, oxygen saturation 97% on room air, normal, and temperature 97.2. No pain. HEENT: Normocephalic and atraumatic. Pupils are equal, round, and reactive. Extraocular mo vements are intact. No injected conjunctivae. Oropharynx is moist without oral lesions. NECK: I do not appreciate rigidity or any carotid bruits. No JVD. LUNGS: Clear bilaterally with no crackles, no focally decreased areas or wheezing. BACK: Straight. He has no midscapular or midline pain. No step-off noted. HEART: Seems reg ular, normal S1, S2 pacemaker noted, nontender, no overlying redness, did not appreciate an y murmur. Radial pulses 2+. ABDOMEN: Soft and benign. EXTREMITIES: No edema. No calf cord noted. SKIN: Clear, no rash or bruising. NEUROLOGIC: He is nonfocal and able to give a good history. ASSESSMENT: This is a 52-year-old male with brief episode of nausea, dizziness, and near s yncope. He has had some vague chest soreness, seems to have resolved almost as fast as it c teo, and was about an hour prior to arrival. We will get an electrocardiogram, some cardiac enzymes, portable chest x-ray, and basic electrolytes, and orthostatic vital signs. He has certainly had recent electrophysiology intervention and will need to rule out significant arrhythmias as a cause. He has a pacemaker as backup. We will check some electrolytes. He is on a new blood pressure medication and may be transiently hypotensive, I suppose. We celeste l need to rule out acute coronary syndrome, and look at his chest x-ray to make sure there is no evidence for any pulmonary process. Clinically, he has no pneumothorax. EMERGENCY ROOM COURSE: EK in paced rhythm. He has left axis borderline T abnormalitie s inferior leads, there is a flipped T wave in three, concurrent with major force of the QR S complex, and seems to have a Q in the same lead, flat in aVF; otherwise ST-T segments are grossly normal. Looking at an EKG that is dated from January 30 appears essentially identic al. Myoglobin is normal at 34, total CK of 115, MB 2.8 with no indicated relative index and tr oponin positive at 0.26. Chest x-ray: No findings of pneumothorax or consolidation. He has normal-appearing cervica l fusion hardware noted and pacemaker, left-sided, dual lead is intact. Chemistries show potassium 3.4, glucose 154, slightly high, BUN and VICTOR HUGOMOE Jaimee ADM:01/31/13 [id number] [facility] ER EMERGENCY DEPARTMENT RECORD [id number] [facility] Adrian rosnethal MD E-Sign: [facility] THIS REPORT IS CONFIDENTIAL AND NOT TO BE RELEASED WITHOUT PROPER AUTHORIZATION. [facility] creatinine are 14 and 0.9. No increased anion gap at 7, and a bicarbonate of 25 and sodium 137. Orthostatics: From lying to standing, blood pressure 149/83, heart rate 83; from standing 12/22/1981 and heart rate 76, essentially asymptomatic. I have given the patient 40 mEq of oral potassium. I have spoken with Dr. Gambino. It seem s likely that mild elevation in his troponin or near positive result is related to the atte mpted ablation yesterday. The patient is pain free and feeling well. We will recommend outpatient followup as previously scheduled. He says he is due to come b ack in a month for another attempt. Otherwise, he can follow up with his doctor in [place]. Certainly, if he has chest pain while here in [place], he to return immediately for re peat evaluation. DIAGNOSES: 1. Arrhythmia with near syncope in context of recent attempted ablation, symptomatic PVC s. 2. Noncardiac chest pain 3. Mild hypokalemia, again, it has been replaced, and we will recommend increased potass ium intake in his diet for the short-term. 4. He was discharged. Adrian Gutierrez MD P A SPM/dkm #[id number] cc: MD Adrian Pleitez MD Suwong Wongsuwan, MD Electronically Signed 02/16/13 1055 Adrian Gutierrez MD MONA GAY ADM:01/31/13 [id number] [facility] ER EMERGENCY DEPARTMENT RECORD [id number] [facility] Adrian rosenthal MD E-Sign: [facility] THIS REPORT IS CONFIDENTIAL AND NOT TO BE RELEASED WITHOUT PROPER AUTHORIZATION.Petty armendariz signed by Jael Brown at 02/16/2013 11:04 AM PDTdocumented in this encounter Plan of [...] | | | | | | [place] [address] | | | | | | [phone] | | | | | | | [...] + + + | Exam Performed Location: [facility] | MISCELANIOUS | | CHEST CLINICAL [...] | an acute cardiopulmonary process. S: SQ ([id number]) Signed by: | | | JAYNE SPEAR MD | | + + + + + | Procedure Note | + + | Kevin, Rad Conversion - 09/13/2013 10:25 PM PDT Exam Performed Location: [facility] INFORMATION:Shortness of | | breath.COMPARISON:None.FINDINGS:There is a left subclavian dual lead cardiac pacer. The | | heart sizeand mediastinal contours are normal. The pulmonary vasculature isnormal. No | | focal airspace opacities, pleural effusions, orpneumothorax. Cervical fusion hardware | | is noted. No acute osseousfindings.IMPRESSION:No evidence of an acute cardiopulmonary | | process.S: SQ ([id number]) Signed by: JAYNE SPEAR MD | |COMPARISON: [...] | | | | | |S: SQ ([id number]) Signed by: JAYNE SPEAR MD | + + + +---------+ + + | Performing | Address | City/State/Zipcode | Phone Number | | Organization | | | | + +---------+ + + | [facility] | | | [phone] | + +---------+ + + | [facility] | | | [phone] | + +---------+ + + Troponin I [...] + + | [facility] | [address] | [place] [address] | | | [facility] | | | | | LABORATORY | | | | + + + + + | [facility] | | | | | [facility] | | | | | LABORATORY [...] + | [facility] | [address] | [place] [address] | | | [facility] | [...] + + | [facility] | [address] | [place] [address] | | | [facility] | | | | | LABORATORY | | | | + + + + + | [facility] | | | | | [facility] | | | | | LABORATORY [...] + + | [facility] | [address] | [place] [address] | | | HE[facility] | | | | | LABORATORY | | | | + + + + + | [facility] | | | | | [facility] | | | | | [...] + + | Glucose | 154 (H)Comment: Citizen [place] | 65 - 99 mg/dL | [facility] | | | | Diabetes Association | [...] + + | [facility] | [address] [place] | [place] [address] | | | [facility] | | | | | LABORATORY | | | | + + + + + | [facility] | | | | | [facility] | | | | | LABORATORY | | | | + + + + + documented in this encounter Visit Diagnoses Not on filedocumented in this encounter"
--- OUTSIDE RECORDS SUMMARY | ~2020-06-07 | XMS | Encounter Summary ---
Demographics + + + | Address | [address] | | | [place] [address] | + + + | Home Phone [...] Team Providers + +------+ + | Care Ticketer Name | Role | Phone | + [...] | Ascending | [place], | [address] [place] | | | | | aortic | [place]ISA [place] | [place], | | | | | aneurysm | [address] | [place] | | | | | ([facility]) | [place] | [address] | | | | | Procedures | [place], | Phone: | | | | | ECHO | [place] | [phone] | | | | | Complete | [address] | Fax: | | | | | | Phone: | [phone] | | | | | | [phone] | | | | | | | Fax: | | | | | | | [phone] | | +--------+--------+ + + + + [...] | MD [address] | [address] | | | | | hypertension | [address] | [place], | | | | | Sick sinus | [address] | [place] | | | | | syndrome | [place] | [address] | | | | | (HCC) | [address] | Phone: | | | | | Ventricular | Phone: | [phone] | | | | | premature | [phone] | Fax: | | | | | depolarizati | Fax: | [phone] | | | | | on | [phone] | | | | | | Tachycardia, | | | | | | | unspecified | | | | | | | | | | | | | | Atherosclero | | | | | | | tic heart | | | | | | | disease of | | | | | | | mi'kmaq | | | | | | | [...] + + | 01/01/ | Office | [facility] | [place], | Ascending thoracic | | 2020 | Visit | CARDIOLOGY [address] | [place] [address] | aortic aneurysm | | | | [place], | [place], | (HCC) (Primary Dx); | | | | [place] [address] | [place] [address] | Coronary artery | | | | [phone] | [phone] | disease involving | | | | | | mi'kmaq coronary | | | | | | artery of mi'kmaq | | | | | | heart [...] encounter Patient Instructions Patient Instructions Vidhi Gillespie, Deicer Tester - 01/01/2020 7:30 AM PST1. Esau delmie [...] of critical coronary artery disea se involving mi'kmaq coronary artery of mi'kmaq heart without angina pectoris, essential hyper tension, [...] for weight loss, he was defer to [facility], per [facility] to have some sort of a [...] Preventative health care Coronary artery disease involving mi'kmaq coronary artery of mi'kmaq heart without angina pectoris Cannabis abuse, daily [...] ONE TABLET UNDER THE TONGUE EVERY 5 DC NUTES NEEDED FOR CHEST PAIN 250 tablet 0 nortriptyline (PAMELOR) 25 mg capsule Take 25 mg by mouth. [place]-3 Fatty Acids (SALMON OIL-1000 PO) CAPS, one capsule by mouth daily twice daily ondansetron (ZOFRAN ODT) 4 mg disintegrating tablet Take 4 mg by mouth every 8 hours as needed for Nausea. ondansetron (ZOFRAN) 4 mg tablet Take 4 mg by mouth. ONE TOUCH DELICA LANCETS [facility] Check glucose as [...] was found Confirmed by SYDNI SINGLETARY MD ([id number]) on 06/06/2019 3:43:10 PM LAB RESULTS reviewed during visit today primarily from [facility]: LIPID Lab Results Component Value Date CHOL [...] BNP 48 06/02/2019 I reviewed records from [facility] for office visit on 06/06/2019 wh ich is summarized in the HPI. RESULTS- I reviewed reports from [facility]: No results found. Above data and testing is reviewed this visit; testing below is historical data unless othe rwise specified. ASSESSMENT: 1. Non-critical Coronary artery disease involving mi'kmaq coronary artery of mi'kmaq heart wi thout angina pectoris: A.Normal exercise [...] symptoms; no limitations of activities of the [employer] functional class. Heart failure [...] performed by Dr Juan Diego Gambino at [facility] on 01/30/2013.Patient had spontaneous PVC'sfr [...] to go back in 3 days to [place] for an attempt of ablation under general [...] advised to having his MRI done in [place] at [facility] which has a repeat MRI protocol for such situations. Patient also will need echocardiogram for wa s next appointment to evaluate his ascending [...] [facility]ync[facility] to have [facility]ov[facility]al [facility]. B.Today, 01/01/2020, [...] advised to having his MRI done in [place] at [facility] which has a repeat MRI protocol for such situations. Patient also will need echocardiogram for his next appointmen t to evaluate his ascending aorta Vidhi Clemente, Deicer Tester am acting as a scribe on behalf of, and in the prese nce of PARISA Lomas. - Vidhi Gillespie, Deicer Tester 01/01/2020 5:29 PM Janeen Clemente ARNP, personally performed the services described in this documentati on, as scribed in my presence and it is both accurate and complete. -PARISA Lomas 01/01/2020 Portions of this chart may have been created with [employer] voice recognition software. Occasi onal wrong-word or [...] W | | | | | | [place], | | | | | | [place] [address] | | | | | | [phone] | | | | | | | [...] | | | | | | n Bowie | | | | | + +--------+ [...]
--- OUTSIDE RECORDS SUMMARY | ~2020-06-07 | XMS | Encounter Summary ---
Demographics + + + | Address | [address] | | | [place] [address] | + + + | Home Phone [...] Team Providers + +------+ + | Care Informatics Spec Name | Role | Phone | + [...] | | | | [place] | [phone] | | | | | [address] | | | | | | [phone] | | | +--------+ + + + [...] + + + +---------+ + + | [place]-3 Fatty | CAPS, one capsule by [...] | | | | | | [place] [address] | | | | | | [phone] | | | | | | | [...]
--- OUTSIDE RECORDS SUMMARY | ~2020-06-07 | XMS | Encounter Summary ---
Demographics + + + | Address | [address] | | | [place] [address] | + + + | Home Phone [...] Providers + +------+ + | Care Insurance And Financial Services Agent Name | Role | Phone | [...] Refill | | 2013 | | [facility] | DO [address] | | | | | [address] | [place] | | | | | [place], [place] | [address] | | | | | [address] | | | | | | [phone] | | | +--------+--------+ + + + [...] | | | | | | [place] [address] | | | | | | [phone] | | | | | | | | +--------+ + + + + documented as of this encounter Visit Diagnoses Not on filedocumented in this encounter"
--- OUTSIDE RECORDS SUMMARY | ~2020-06-07 | XMS | Encounter Summary ---
Demographics + + + | Address | [address] | | | [place] [address] | + + + | Home Phone [...] Providers + +------+ + | Care Group Exercise Class Instructor Name | Role | Phone | [...] | | CARDIOLOGY [address] | [address] | Dx); SINUS | | | | [place], | [place], | [place] | | | | [place] [address] | [place] [address] | | | | | [phone] | [phone] | | | | | | | [...] W | | | | | | [place], | | | | | | [place] [address] | | | | | | [phone] | | | | | | | | +--------+ + + + + documented as of this encounter Visit Diagnoses + + | Diagnosis | + + | Chest pain - Primary Chest pain, unspecified | + + | SINUS BRADYCARDIA Sinoatrial node dysfunction | + + documented in this encounter
--- OUTSIDE RECORDS SUMMARY | ~2020-06-07 | XMS | Encounter Summary ---
Demographics + + + | Address | [address] | | | [place] [address] | + + + | Home Phone [...] Team Providers + +------+ + | Care Skull Grinder Name | Role | Phone | + +------+ + PCP | Unavailable | + +------+ + Encounter Details +--------+ + + + + | Date | Type | Department | Care Team | Description | +--------+ + + + + | 05/13/ | [facility] | [facility] | Dom Graham, | | | 2010 | Encounter | MED CTR EMERGENCY | [address] | | | | | CENTER [address] | [place] | | | | | [place] | [address] | | | | | [address] | | | | | | [phone] | | | +--------+ + + + [...] home. He has appointment with h is adjustment clerk tomorrow. He should return to the ER if he develops any new or concerning symptoms. DICTATED BY: Dom Graham M.D. Emergency Medicine JOB #: [id number] EXT JOB #:[id number] <Electronicall y Signed by Dom Graham MD> [...] | | | | | | [place] [address] | | | | | | [phone] | | | | | | | [...] | | | | | the [employer] [place] [employer] | | | | | | Access Analyzer. | | | | + + + + + + + + | Specimen | + + | | + + + + + + + | Performing | Address | City/State/Zipcode | Phone Number | | Organization | | | | + + + + + | [facility] | [address] | [place], [place] | [phone] | | [facility] | | [address] | | | - LABORATORY | | | | + + + + + | [facility] | [address] | [place], [place] | | | [facility] | | [address], [facility] | | | - LABORATORY | [...] + | [facility] | [address] | [place], [place] | [phone] | | [facility] | | [address] | | | - LABORATORY | | | | + + + + + | [facility] | [address] | [place], [place] | | | [facility] | | [facility] | | | - LABORATORY | [...] [address] | [place] | [phone] | | [facility] | | [address] | | | - LABORATORY | | | | + + + + + | [facility] | [address] | [place] | | | [facility] | | [address], [facility] | | | - LABORATORY | [...] | | | | | | the [employer] | | | | | | Access Analyzer. | | | | + + + + + + + + | Specimen | + + | | + + + + + + + | Performing | Address | City/State/Zipcode | Phone Number | | Organization | | | | + + + + + | [facility] | [address] | [place], [place] | [phone] | | [facility] | | [address] | | | - LABORATORY | | | | + + + + + | [facility] | [address] | [place], [place] | | | [facility] | | [id number] [place] [address] | | | - LABORATORY | | | | + + + + + XR Chest AP Portable (05/13/2011 3:01 PM PDT) + + | Specimen | + + | | + + + + + | Narrative | Performed At | + + + | [facility] Diagnostic Imaging Department | [facility] | | [address] [facility] | [facility] | | PORTABLE CHEST CLINICAL [...] Transcribed Date/Time: | | | 05/13/2011 17:06 Finish Machine Tender: <Electronically Signed | | | by Jama Solis MD> 05/13/112038 | | + + + + + | Procedure Note | + + | Kalpesh Brown Conversion - 12/29/2013 3:12 PM [facility] | | Diagnostic Imaging Department [address] [facility] | | PORTABLE CHEST CLINICAL HISTORY: [...] 16:57 | |Transcribed Date/Time: 05/13/2011 17:06 | |Finish Machine Tender: | |<Electronically Signed by Jama Solis MD> [...]
--- OUTSIDE RECORDS SUMMARY | ~2020-06-07 | XMS | Encounter Summary ---
Demographics + + + | Address | [address] | | | [place] [address] | + + + | Home Phone [...] Team Providers + +------+ + | Care Dust Puller Name | Role | Phone | [...] | CARDIOLOGY [address] | [address] | Interrogation | | | | [place], | [place], | (Primary Dx); | | | | [place] [address] | [place] [address] | Presence of | | | | [phone] | [phone] | permanent cardiac | | | | [...] Paceart documentation and remote PDF scanned into [employer] for remote interrogation re sults. Data collected [...] | | | | | | [place] [address] | | | | | | [phone] | | | | | | | [...] scanned into | | | [facility] for remote interrogation results. Data collected by [...]
--- OUTSIDE RECORDS SUMMARY | ~2020-06-07 | XMS | Encounter Summary ---
Demographics + + + | Address | [address] [place] [address] [address] | | | [place] [address] | + + + | Home Phone [...] [place] | | | | | [address] | | + + + + + Care Team Providers + +------+ + | Care Aquaculture Director Name | Role | Phone | [...] 2019 | | Center at [facility] [address] | Gastroenterology | Gastroenterology | | | | [address] [facility] | | | | | | for Health and | | | | | | [address], [address] | | | | | | [place], [place] | | | | | | [address] | | | | | | [phone] | | | +--------+ + + + [...]
--- OUTSIDE RECORDS SUMMARY | ~2020-06-07 | XMS | Encounter Summary ---
Demographics + + + | Address | [address] | | | [place] [address] | + + + | Home Phone [...] Providers + +------+ + | Care Manager Meeting Name | Role | Phone | + [...] [address] | | | | [place], | [place], | | | | | [place] [address] | [place] [address] | | | | | [phone] | [phone] | | | | | | | [...] | | | | | | [place] [address] | | | | | | [phone] | | | | | | | [...] Resulting Agency Comment | + + | [facility] | + + + +---------+ + [...] Resulting Agency Comment | + + | [facility] | + + + +---------+ + [...] Agency Comment | + + | [facility] | + + + +---------+ [...] Resulting Agency Comment | + + | [facility] | + + + +---------+ + [...] Resulting Agency Comment | + + | [facility] | + + + +---------+ [...] Resulting Agency Comment | + + | [facility] | + + + +---------+ + [...] Agency Comment | + + | [facility] | + + + +---------+ [...] Resulting Agency Comment | + + | [facility] | + + + +---------+ [...] Resulting Agency Comment | + + | [facility] | + + + +---------+ + [...] Resulting Agency Comment | + + | [facility] | + + + +---------+ + [...] Resulting Agency Comment | + + | [facility] | + + + +---------+ + [...] Resulting Agency Comment | + + | [facility] | + + + +---------+ + [...] Resulting Agency Comment | + + | [facility] | + + + +---------+ + [...] Resulting Agency Comment | + + | [facility] | + + + +---------+ + [...] Resulting Agency Comment | + + | [facility] | + + + +---------+ + [...] Agency Comment | + + | [facility] | + + + +---------+ [...] Resulting Agency Comment | + + | [facility] | + + + +---------+ + [...] Resulting Agency Comment | + + | [facility] | + + + +---------+ + [...]
--- OUTSIDE RECORDS SUMMARY | ~2020-06-07 | XMS | Encounter Summary ---
Demographics + + + | Address | [address] | | | [place] [address] | + + + | Home Phone [...] Providers + +------+ + | Care Retail Route Supervisor Name | Role | Phone | + +------+ + PCP | Unavailable | + +------+ + Encounter Details +--------+ + + + + | Date | Type | Department | Care Team | Description | +--------+ + + + + | 05/24/ | Hospital | [facility] | Chi Fang | Unspecified Chest | | 2008 - | Encounter | [facility] | MD Kelsey [address] | Pain | | | | CLINICAL DECISION | CHRISTOPH HERNANDEZ | | | 05/25/ | | [address] | [address] | | | 2008 | | [place], [place] | [phone] | | | | | [address] | | | | | | [phone] | | | +--------+ + + + [...] W | | | | | | [place], | | | | | | [place] [address] | | | | | | [phone] | | | | | | | [...] Performed At | + + + | [id number] | | | Page 1 RADIOLOGY | | | [facility] [address]/ | | | [facility] | | | C[place]: [place] [address] | | | | | | | | | DATE OF : 1960 ORDER NUMBER: | | | [id number] EXAM DATE/TIME: 05/25/2009 08:00 A ORDERING PHYSICIAN: | | | CHI FANG ORDER DETAIL: [id number] / / [facility] EXAM | | | DESCRIPTION: [place] [...] | | administration of 14.9 mCi of fgxhnvxyda-20t-cqylwbt Myoview. Stress | | | images postinjection [...] | | | images. 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 | | [...] | A | | P | | TSG/dc/[id number]/ | | cc: ANGELA MARADIAGA MD | | FEMI MARIE MD | | CHI FANG MD | | AMY BANEGAS DO | + + ECHO Complete (05/25/2009 7:50 AM PDT) + + | Specimen | + + | | + + + + + | Narrative | Performed At | + + + | [id number] | | | Page 1 ECHO [facility] NAME: | | | [place] [address] MEDICAL RECORD #: | | | [id number] | | | DATE OF : 1960 ORDER | | | NUMBER: [id number] EXAM DATE/TIME: 05/25/2009 07:34 PERFORMING | | [...] Excursion: | | | 1.89 cm E-F [place]: 0.08 m/s HR: 43.51 BPM AV maxP.11 [...] | | | 0.33 m/s TV Dec [place]: 1.73 m/s2 TV Dec Time: 344.24 ms TV | | | E Bravo: 0.59 m/s TV E/A Ratio: 1.80 TV maxP.40 mmHg TV | | | meanP.44 mmHg TV Vmax: 0.59 m/s TV Vmean: 0.30 m/s TV | | | VTI: 22.88 cm Record Press Tender: ANTHONY Authenticated by: Edwardo Tee | | | Carlos WINKLER Report Date/Time: 05-25-2009 10:19:52 | | + + + + + | Procedure Note | + + | Kalpesh Brown - 07/17/2019 2:13 AM PDT [id number] | | [facility] [place] | | [address] : ACCOUNT #: | | [id number]: DATE OF : 1960ORDER NUMBER: | | [id number] DATE/TIME: 05/25/2009 07:34PERFORMING PHYSICIAN: Edwardo Gonzalez | [...] mlLAESV Index (A-L): 26.03 ml/m2LAAs A2C: 14.93 [id number] A-L | | A2C: 44.50 mlLALs A2C: 4.25 cmLAAs A4C: 18.42 [id number] A-L A4C: 55.79 mlLALs | | A4C: 5.16 cmAo Diam: 3.91 cmAV Cusp: 2.23 cmLA Diam: 3.79 cmLA/Ao: 0.96%FS: | | 43.37 %EDV(Teich): 146.19 mlEF(Teich): 73.99 %ESV(Teich): 38.01 mlIVSd: 1.57 | | cmIVSs: 1.79 cmLVIDd: 5.48 cmLVIDs: 3.10 cmLVPWd: 1.32 cmLVPWs: 1.79 | | cmSV(Teich): 108.18 mlD-E Excursion: 1.89 cmE-F [place]: 0.08 m/sHR: 43.51 BPMAV | | maxP.11 mmHgAV meanP.33 mmHgAV Vmax: 1.74 m/Zabrina Vmean: 1.06 m/Zabrina VTI: | | 35.51 cmAVA Vmax: 2.77 cm2AVA (VTI): 2.54 [id number] Dopp: 3.00 l/xxmq9DXZB Dopp: | | 6.33 l/minHR: 70.25 BPMLVOT maxP.78 mmHgLVOT meanP.02 mmHgLVSI Dopp: | | 42.76 ml/m2LVSV Dopp: 90.23 mlLVOT Vmax: 1.30 m/sLVOT Vmean: 0.80 m/sLVOT VTI: | | 24.35 cmMV A Bravo: 0.70 m/sMV DecT: 242.46 msMV E Bravo: 0.91 m/sMV E/A Ratio: | | 1.31MV maxP.40 mmHgMV meanP.82 mmHgMV Vmax: 0.92 m/sMV Vmean: 0.37 m/sMV | | VTI: 26.47 cmMVA (VTI): 3.40 xy5Vusptu e': 0.08 m/sSeptal E/e': 11.24HR: | | 60.55 BPMPV maxP.04 mmHgPV meanP.39 mmHgPV Vmax: 0.87 m/sPV Vmean: 0.55 | | m/sPV VTI: 19.09 cmRAP: 5 mmHgRVSP: 21.72 mmHgTR maxP.72 mmHgTR Vmax: | | 2.04 m/sTV A Bravo: 0.33 m/sTV Dec [place]: 1.73 m/s2TV Dec Time: 344.24 msTV E Bravo: | | 0.59 m/sTV E/A Ratio: 1.80TV maxP.40 mmHgTV meanP.44 mmHgTV Vmax: 0.59 | | m/sTV Vmean: 0.30 m/sTV VTI: 22.88 cm Record Press Tender: EMERYuthenticated by: Edwardo Tee | | Carlos MDReport [...] | |D-E Excursion: 1.89 cm | |E-F [place]: 0.08 m/s | |HR: 43.51 BPM | [...] A Bravo: 0.33 m/s | |TV Dec [place]: 1.73 m/s2 | |TV Dec Time: 344.24 ms | |TV E Bravo: 0.59 m/s | |TV E/A Ratio: 1.80 | |TV maxP.40 mmHg | |TV meanP.44 mmHg | |TV Vmax: 0.59 m/s | |TV Vmean: 0.30 m/s | |TV VTI: 22.88 cm | | | |Record Press Tender: KVW | |Authenticated by: Edwardo Gonzalez MD | |Report Date/Time: 05-25-2009 10:19:52 | + + CT Head wo Contrast (05/24/2009 12:58 PM PDT) + + | Specimen | + + | | + + + + + | Narrative | Performed At | + + + | [id number] | | | Page 1 RADIOLOGY | | | CDU 10562/ | | | [facility] | | | CENTER [place]: [place] [address] | | | | | | | | | DATE OF : 1960 ORDER NUMBER: | | | [id number] EXAM DATE/TIME: 05/24/2009 12:47 P ORDERING PHYSICIAN: [...] | | asymmetrically dense vessel about the brev[place] mission of [place]. No | | | hydrocephalus. [...] 08:45 P P P | | | [facility]/tp/[id number]/ cc: MD ANGELA AVENDAÑO MD | | | MD AMY HAM, DO | | + + + + + | Procedure Note | + + | Kalpesh Brown Conversion - 07/17/2019 2:13 AM PDT | | [id number] Page 1 | | RADIOLOGY CDU 67571/ | | OPO | | [facility] NAME: [address] | | [place] [address] | | | | DATE OF : 1960 | | | | ORDER NUMBER: [id number] | | EXAM DATE/TIME: 05/24/2009 12:47 P [...] is no asymmetrically dense vessel about the brev[place] mission of [place]. No | | hydrocephalus. Some [...] | P | | P | | TSG/tp/[id number]/ | | cc: VINAY HILL MD | | ANGELA MARADIAGA MD | | FEMI MARIE MD | | AMY BANEGAS DO | + + XR Chest 2 Vws (05/24/2009 11:31 AM PDT) + + | Specimen | + + | | + + + + + | Narrative | Performed At | + + + | [id number] | | | Page 1 RADIOLOGY | | | [facility] [address]/ | | | [facility] | | | CENTER [place]: [place] [address] | | | | | | | | | DATE OF : 1960 ORDER NUMBER: | | | [id number] EXAM DATE/TIME: 05/24/2009 11:19 A ORDERING PHYSICIAN: [...] DT: | | | 05/24/2009 05:38 P [id number]/[id number]/ cc: VINAY HILL MD | | | MD FEMI FOSS MD JOSEPH | | | P SOLDO, DO | | + + + + + | Procedure Note | + + | Kalpesh Brown Conversion - 07/17/2019 2:13 AM PDT | | [id number] Page 1 | | RADIOLOGY CDU 19863/ | | OPO | | [facility] NAME: [address] | | [place] [address] | | | | DATE OF : 1960 | | | | ORDER NUMBER: [id number] | | EXAM DATE/TIME: 05/24/2009 11:19 A [...] | P | | P | | [facility]//[id number]/ | | cc: VINAY HILL MD | | ANGELA MARADIAGA MD | | FEMI MARIE MD | | AMY BANEGAS DO | + + documented in this encounter Visit Diagnoses + + | Diagnosis | + + | Chest pain, unspecified | + + documented in this encounter"
--- OUTSIDE RECORDS SUMMARY | ~2020-06-07 | XMS | Encounter Summary ---
Demographics + + + | Address | [address] | | | [place] [address] | + + + | Home Phone [...] Team Providers + +------+ + | Care Anti Air Warfare Operations Officer Name | Role | Phone | [...] W | mixed | | | | [place], | [place], | | | | | [place] [address] | [place] [address] | | | | | [phone] | [phone] | | | | | | | [...] | | | | | | [place] [address] | | | | | | [phone] | | | | | | | | +--------+ + + + + documented as of this encounter Visit Diagnoses + + | Diagnosis | + + | Hyperlipidemia, mixed Mixed hyperlipidemia | + + documented in this encounter"
--- OUTSIDE RECORDS SUMMARY | ~2020-06-07 | XMS | Encounter Summary ---
Demographics + + + | Address | [address] [place] [address] [address] | | | [place] [address] | + + + | Home Phone [...] [place] | | | | | [address] | | + + + + + Care Team Providers + +------+ + | Care Autocutter Name | Role | Phone | + [...] as of this encounter Progress Notes Interface, Launderette Attendant In - 07/19/2006 3:05 AM PDTCLINIC DATE: 06/13/2002 [facility] REFERRING PHYSICIAN: Eugene Vera D.O. [address] [place] [address] Mr. Sanchez is a new patient. He [...] proceed. Martell Allen M.D. ELIZABETH / KATTY [id number] / [id number] / [id number] / [id number] cc: Eugene Vera D.O. [address] [place] [id number] signed by Interface, Launderette Attendant In at 07/19/2006 3:0 5 AM PDTdocumented in this encounter Plan of Treatment Not on filedocumented as of this encounter Visit Diagnoses Not on filedocumented in this encounter
--- OUTSIDE RECORDS SUMMARY | ~2020-06-07 | XMS | Encounter Summary ---
Demographics + + + | Address | [address] [place] [address] [address] | | | [place] [address] | + + + | Home Phone [...] [place] | | | | | [address] | | + + + + + Care Team Providers + +------+ + | Care Insurance Verification Specialist Name | Role | Phone | [...] | | | | [address] [place] | [place], [place] | | | | | for Health and | [address] | | | | | Healing, Building [address] | [phone] | | | | | [place], [place] | | | | | | [address] | | | | | | [phone] | | | +--------+ + + + [...]
--- OUTSIDE RECORDS SUMMARY | ~2020-06-07 | XMS | Encounter Summary ---
Demographics + + + | Address | [address] [place] [address] [address] | | | [place] [address] | + + + | Home Phone [...] [place] | | | | | [address] | | + + + + + Care Team Providers + +------+ + | Care Material Damage Adjuster Name | Role | Phone | [...] 2019 | | Center at [facility] [address] | MD [address] | | | | | [address] [place] | [place], [place] | | | | | for Health and | [address] | | | | | [facility] 2 | [phone] | | | | | [place], [place] | | | | | | [address] | | | | | | [phone] | | | +--------+ + + + [...]
--- OUTSIDE RECORDS SUMMARY | ~2020-06-07 | XMS | Encounter Summary ---
Demographics + + + | Address | [address] [place] [address] [address] | | | [place] [address] | + + + | Home Phone [...] [place] | | | | | [address] | | + + + + + Care Team Providers + +------+ + | Care Casino Operations Supervisor Name | Role | Phone [...] | | | | [address] [employer] | [place], [place] | | | | | [facility] Health and | [address] | | | | | [facility] 2 | [phone] | | | | | [place], [place] | | | | | | [address] | | | | | | [phone] | | | +--------+ + + + [...]
--- OUTSIDE RECORDS SUMMARY | ~2020-06-07 | XMS | Encounter Summary ---
Demographics + + + | Address | [address] | | | [place] [address] | + + + | Home Phone [...] Providers + +------+ + | Care Sap Basis Name | Role | Phone | + [...] | | | | | | [address] [place], [place] | | | | | | [address] | | | | | | [phone] | | | +--------+ + + + [...] | | | | | | [place] [address] | | | | | | [phone] | | | | | | | | +--------+ + + + + documented as of this encounter Visit Diagnoses Not on filedocumented in this encounter"
--- OUTSIDE RECORDS SUMMARY | ~2020-06-07 | XMS | Encounter Summary ---
Demographics + + + | Address | [address] | | | [place] [address] | + + + | Home Phone [...] Author | [facility] | | [...] Providers + +------+ + | Care Research Environmental Engineer Name | Role | Phone | [...] | unspecified | MD Jacek | [address] [place] | | | | | type | [address] | [place], | | | | | Unintentiona | [place] | [place] [address] | | | | | l weight | [place], [place] | Phone: | | | | | loss | [address] | [phone] | | | | | Procedures | Phone: | Fax: | | | | | [facility] | [phone] | [phone] | | | | | INTRALUMINAL | Fax: | | | | | | | [phone] | | | | | | ESOPHAGUS-IL [...] (Primary Dx); | | | | [address] [place], [place] | [place] [address] | Unintentional weight | | | | [address] | [phone] | loss | | | | [phone] | | | +--------+ + + + [...] W | | | | | | [place], | | | | | | [place] [address] | | | | | | [phone] | | | | | | | [...]
--- OUTSIDE RECORDS SUMMARY | ~2020-06-07 | XMS | Encounter Summary ---
Demographics + + + | Address | [address] | | | [place] [address] | + + + | Home Phone [...] Providers + +------+ + | Care Rubber Cutting Machine Tender Name | Role | Phone [...] 2019 | | CARDIOLOGY [address] | Umbrella Finisher | | | | | [place] | | | | | | [place] [address] | | | | | | [phone] | | | +--------+ + + + [...] | | | | | | [place] [address] | | | | | | [phone] | | | | | | | [...] | | | | | | | [place] Citizen, | | | | | | External [...]
--- OUTSIDE RECORDS SUMMARY | ~2020-06-07 | XMS | Encounter Summary ---
Demographics + + + | Address | [address] | | | [place] [address] | + + + | Home Phone [...] Team Providers + +------+ + | Care Tow Truck Dispatcher Name | Role | Phone | [...] + | 02/21/ | Telephone | [facility] | Emmanuel Daniel MD | Other (? referral) | | 2019 | | GASTROENTEROLOGY | [address] [place], [place] | | | | | [address] [place] | [address] [place], [place] | | | | | [address] [place], [place] | [address] | | | | | [address] | | | | | | [phone] | | | +--------+ + + + [...] requesting Dr. Daniel reconsider sending referral to [facility] because they will not acce pt referral from PCP. [facility] told him outside referrals as far away [...] on most days, I can't leave house luara this." He is taking metamucil 2-3x daily [...] on Wednesday we can request referral to [facility] for IBS, he agreed. He said likely they will tell him same thing as Dr. Daniel, but he would like [facility] to discuss with them. Phone note on [...] | | | | | | [place] [address] | | | | | | [phone] | | | | | | | | +--------+ + + + + documented as of this encounter Visit Diagnoses Not on filedocumented in this encounter
--- OUTSIDE RECORDS SUMMARY | ~2020-06-07 | XMS | Encounter Summary ---
Demographics + + + | Address | [address] | | | [place] [address] | + + + | Home Phone [...] Providers + +------+ + | Care Aquatic Life Laborer Name | Role | Phone | + +------+ + | Kirk French MD | PCP | | + +------+ + Reason for Visit +--------+--------+ + | Reason | Onset | Comments | | | Date | | +--------+--------+ + | LABS | 07/31/ | | | | 2019 | | +--------+--------+ + Encounter Details +--------+ + + + + | Date | Type | Department | Care Team | Description | +--------+ + + + + | 07/31/ | Telephone | [facility] [place] | Sil[place], | LABS | | 2018 | | CARDIOLOGY [address] | [place] [address] | | | | | [place], | [place], | | | | | [place] [address] | [place] [address] | | | | | [phone] | [phone] | | | | | | | [...] Telephone Encounter - Magi Farr RN - 07/31/2019 3:24 PM PDTLab ordered. ...........................................Magi Farr RN on 07/31/19 at 15:24 elephone Julia Caceres Drug Safety Coordinator - 07/31/2019 1:37 PM PDTPatient scheduled for an nayan ointment on 08/01/2019 and is needing a fasting Lipid panel. Please order, thank you. Spoke to patient, he states that he will come in the morning to have his fasting labs done before his appointment. Electronically signed by Julia Allen Drug Safety Coordinator at 07/2019 1:40 PM PDTdocumented in this encounter Plan of [...] | | | | | | [place], | | | | | | [place] [address] | | | | | | [phone] | | | | | | | [...]
--- OUTSIDE RECORDS SUMMARY | ~2020-06-07 | XMS | Encounter Summary ---
Demographics + + + | Address | [address] [place] [address] [address] | | | [place] [address] | + + + | Home Phone [...] [place] | | | | | [address] | | + + + + + Care Team Providers + +------+ + | Care Instructional Specialist Name | Role | Phone | [...] Yao | | | | | at [facility] | [facility] | | | | | [address] | [place] [address] | | | | | [address] | | | | | | [place], [address] [place] [address] | | | | | | [place], [place] | | | | | | [address] | | | | | | [phone] | | | +--------+ + + + [...] view image for the detailed interpretation from [facility] results. | CARDIOLOGY | + + + + + + + + | Performing | Address | City/State/Zipcode | Phone Number | | Organization | | | | + + + + + | [facility] | [address] | [place], [place] | | | CARDIOLOGY | [address] | [address] | | + + + + + documented in this encounter Visit Diagnoses Not on filedocumented in this encounter"
--- OUTSIDE RECORDS SUMMARY | ~2020-06-07 | XMS | Encounter Summary ---
Demographics + + + | Address | [address] | | | [place] [address] | + + + | Home Phone [...] + +------+ + | Care Director Of Annual Giving Name | Role | Phone | + [...] | | | [address] [place] | [place] [address] | | | | | [place] [address] | | | | | | [phone] | | | +--------+ + + + [...] | | | | | | [place] [address] | | | | | | [phone] | | | | | | | [...] for comparison only - no result from [place]. | | + + + + +---------+ + + | Performing | Address | City/State/Zipcode | Phone Number | | Organization | | | | + +---------+ + + | [facility] | | | | + +---------+ + + documented in this encounter Visit Diagnoses Not on filedocumented in this encounter"
--- OUTSIDE RECORDS SUMMARY | ~2020-06-07 | XMS | Encounter Summary ---
Demographics + + + | Address | [address] | | | [place] [address] | + + + | Home Phone [...] Providers + +------+ + | Care Power Distributor Name | Role | Phone | [...] [address] | | | | | [place], | [place], | | | | | [place] [address] | [place] [address] | | | | | [phone] | [phone] | | | | | | | [...] | | | | | | [place] [address] | | | | | | [phone] | | | | | | | | +--------+ + + + + documented as of this encounter Visit Diagnoses Not on filedocumented in this encounter"
--- OUTSIDE RECORDS SUMMARY | ~2020-06-07 | XMS | Encounter Summary ---
Demographics + + + | Address | [address] | | | [place] [address] | + + + | Home Phone [...] Team Providers + +------+ + | Care Burring Wheel Operator Name | Role | Phone [...] | 08/04/ | Telephone | [facility] [place] | [place], | Other (4 week event | | 2017 | | CARDIOLOGY [address] | [address] | monitor ) | | | | [place], | [place], | | | | | [place] [address] | [place] [address] | | | | | [phone] | [phone] | | | | | | | [...] to appointment. Will route message to front office representative to call and reschedule appointment. ...........................................TOYIN ANDRADE [...] | | | | | | [place] [address] | | | | | | [phone] | | | | | | | | +--------+ + + + + documented as of this encounter Visit Diagnoses Not on filedocumented in this encounter"
--- OUTSIDE RECORDS SUMMARY | ~2020-06-07 | XMS | Encounter Summary ---
Demographics + + + | Address | [address] | | | [place] [address] | + + + | Home Phone [...] Team Providers + +------+ + | Care Squirrel Man Name | Role | Phone | [...] + + | 03/22/ | Refill | [facility] | Kirk French | Medication Refill | | 2019 | | [facility] | MD [address] | | | | | [facility] [address] | | | | | [address] | [place] [address] | | | | | [place], [place] | [phone] | | | | | [address] | | | | | | [phone] | | | +--------+--------+ + + + [...] | | | | | | [place] [address] | | | | | | [phone] | | | | | | | | +--------+ + + + + documented as of this encounter Visit Diagnoses Not on filedocumented in this encounter"
--- OUTSIDE RECORDS SUMMARY | ~2020-06-07 | XMS | Encounter Summary ---
Demographics + + + | Address | [address] | | | [place] [address] | + + + | Home Phone [...] Providers + +------+ + | Care Business Segment Manager Name | Role | Phone | + +------+ + | Kirk French MD | PCP | | + +------+ + Encounter Details +--------+ + + + + | Date | Type | Department | Care Team | Description | +--------+ + + + + | 01/07/ | Hospital | [facility] | Conversion | | | 2017 | Encounter | [facility] | Transaction, | | | | | [address] | Provider Unknown | | | | | [address] | [phone] | | | | | [facility] [place] | | | | | | [address] | Kirk French | | | | | [phone] | MD Eva Guidry | | | | | | [address] [place], | | | | | | [place] [address] | | | | | | [phone] | | | | | | | [...] + + + +---------+ + + | [place] | CAPS, one capsule by [...] | | | | | | [place] [address] | | | | | | [phone] | | | | | | | | +--------+ + + + + documented as of this encounter Visit Diagnoses Not on filedocumented in this encounter"
--- OUTSIDE RECORDS SUMMARY | ~2020-06-07 | XMS | Encounter Summary ---
Demographics + + + | Address | [address] | | | [place] [address] | + + + | Home Phone [...] Providers + +------+ + | Care Metal Bench Patternmaker Name | Role | Phone | [...] | | | | | region | [address] | | | | | | Procedures | [address] | | | | | | CT | [place], [place] | | | | | | Myelography | [address] | | | | | | Lumbar Spine | Phone: | | | | | | | [phone] | | | | | | | Fax: | | | | | | | [phone] | | +--------+--------+ + + + + [...] | | | | | region | [address] | | | | | | Procedures | [address] | | | | | | CT | [place], [place] | | | | | | Myelography | [address] | | | | | | Lumbar Spine | Phone: | | | | | | | [phone] | | | | | | | Fax: | | | | | | | [phone] | | +--------+--------+ + + + + Encounter Details +--------+ + + + + | Date | Type | Department | Care Team | Description | +--------+ + + + + | 04/07/ | Hospital | [facility] | Pia Akhtar | Spinal stenosis, | | 2016 | Encounter | [facility] [address] | MD [address] | lumbar region | | | | Bruno Fannin, | [address] | | | | | [place] [address] | [place] [address] | | | | | [phone] | [phone] | | | | | | | [...] + + + +---------+ + + | [place]-3 Fatty | CAPS, one capsule by | [...] | | | | | | [place] [address] | | | | | | [phone] | | | | | | | [...]
--- OUTSIDE RECORDS SUMMARY | ~2020-06-07 | XMS | Encounter Summary ---
Demographics + + + | Address | [address] | | | [place] [address] | + + + | Home Phone [...] Providers + +------+ + | Care Education Analyst Name | Role | Phone | [...] | | | 2013 | | [facility] | DO [address] | | | | | [address] | [place] | | | | | [place] | [address] | | | | | [address] | | | | | | [phone] | | | +--------+ + + + [...] | | | | | | [place], | | | | | | [place] [address] | | | | | | [phone] | | | | | | | | +--------+ + + + + documented as of this encounter Visit Diagnoses Not on filedocumented in this encounter"
--- OUTSIDE RECORDS SUMMARY | ~2020-06-07 | XMS | Encounter Summary ---
Demographics + + + | Address | [address] | | | [place] [address] | + + + | Home Phone [...] Team Providers + +------+ + | Care Sql Database Developer Name | Role | Phone | [...] | | | | CENTER [address] | [place] | (Primary Dx) | | 07/28/ | | [place] | [address] | | | 2017 | | [address] | | | | | | [phone] | | | +--------+ + + + [...] sent through Care Everywhere.Chest Pain, Non cardiac (Korean)documented in this encounter Medications at Time of [...] + + + +---------+ + + | [place]-3 Fatty | CAPS, one capsule by | [...] MD - 07/27/2018 10:[address] [facility] Moe Sanchez Emergency Department Encounter Note [address] [place] [address] PCP:Kirk French MD [phone] CHIEF COMPLAINT: Chief [...] SURGERY ABLATION Bilateral 04/03/2013 x3 APPENDECTOMY 2005 [facility] CARDIAC CATHERIZATION 12/25/13 Left COLONOSCOPY N/A 12/24/2017 Procedure: COLONOSCOPY; Surgeon: Emmanuel Daniel MD; Location: [facility] MEDICAL PROCEDURE UNIT HARDWARE REMOVAL KNEE SURGERY 2004 meniscus-right LAMINECTOMY 1991 L3-4 LUMBAR DISCECTOMY 1991 L3-4 LUMBAR FUSION 01/2011 6 spine fusions neck fusion 08/10/2012 [place], [place] NECK SURGERY PACEMAKER PLACEMENT 06/14/09 SHOULDER SURGERY 03/22/13 SINUS SURGERY 1997 SPINAL FUSION STOMACH SURGERY UPPER GASTROINTESTINAL ENDOSCOPY N/A 12/24/2017 Procedure: EGD; Surgeon: Emmanuel Daniel MD; Location: [facility] MEDICAL PROCEDURE UNIT VASECTOMY CURRENT MEDICATIONS [...] DOSE, CALL 911Disp-100 tablet, R-3 , Normal [place]-3 Fatty Acids (SALMON OIL-1000 PO) CAPS, one capsule by mouth daily twice daily ONE TOUCH DELICA LANCETS [facility] Check glucose as needed for hypoglycemiaDisp-100 each, R-3, N ormal pravastatin (PRAVACHOL) 40 MG tablet take 1 tablet by mouth NIGHTLYDisp-90 tablet, R-3, Nor mal rOPINIrole (REQUIP) 1 mg tablet Take 1 tablet by mouth nightly.R-0, Historical Med UNABLE TO FIND Take 1 tablet by mouth Daily. MARINE-S5Xxjfnfmpbi Med UNCODED MEDICATION Diagnosis: Obstructive Sleep Apnea ICD-9: 327.23 Length of Need: 99 MonthsDisp-1 Device, R-0, [id number] -Nasal Pillows, W8885-Aqnot Mask, A 7030- Full Face Mask, D8929-Gqoilt Humidifier, G6628-Fuwsac Tubing, G7381-Ekuzzgje, I3581-Di instrap A7039/A703 8-Filters valACYclovir (VALTREX) 1 g [...] now present Confirmed by ANGELA MARADIAGA MD ([id number]) on 07/28/2018 6:03:35 AM IMAGING STUDIES (X-Rays [...] were reviewed along with EMS notes and [facility] record s if applicable. (See chart for [...] Internal Medicine Why: As needed Contact information: [facility] LORA RENARD [address] [address] Discharge Medication List as of [...] | | | | | | [place] [address] | | | | | | [phone] | | | | | | | [...] W?MRN: | | | | | | [id number] | | | [id number] | | | his | | | [...] | | | ent/60 | | | [id number] | | | -5586- | | | [...] | | | St. | | | [place] | | | y | | | [...] | | | ext. | | | [address] | | | or go | | [...] | | | M.D. | | | Wine And Spirits Clerk | | | al | | [...] | | | | | | [employer] | | | | | [...] + | Performing | Address | City/State/[facility] | Phone Number | | Organization | | | | + + + + + | [facility] | [address] | [place] | [phone] | | [facility] | | [address] | | | - LABORATORY | | [...] mL/min/1.73m2 | [facility] | | | [facility] | RATE,ESTIMATED | | MEDICAL | | | | mL/min/1.52c7Tgyu than | | CENTER - | | [...] | ine Ratio | | | [facility] | | | | | | MEDICAL [...] [address] | [place] | [phone] | | [facility] | | [address] | | | - LABORATORY | | [...] + | [facility] | [address] | [place] | [phone] | | [facility] | | [address] | | | - LABORATORY | | [...] | | | | ANGELA MARADIAGA MD ([id number]) | | | | | | on [...]
--- OUTSIDE RECORDS SUMMARY | ~2020-06-07 | XMS | Encounter Summary ---
Demographics + + + | Address | [address] | | | [place] [address] | + + + | Home Phone [...] Providers + +------+ + | Care Dry Color Tester Name | Role | Phone | + +------+ + | Kirk Fernch MD | PCP | | + +------+ + Encounter Details +--------+ + + + + | Date | Type | Department | Care Team | Description | +--------+ + + + + | 12/24/ | Orders Only | [facility] | Conversion | | | 2018 | | [facility] | Transaction, | | | | | PRIMARY CARE [address] | Provider Unknown | | | | | [place] | [phone] | | | | | [place] | | | | | | [address] | | | | | | [phone] | | | +--------+ + + + [...] | | | | | | [place] [address] | | | | | | [phone] | | | | | | | [...] LAB | | [facility] | | + + + + [...]
--- OUTSIDE RECORDS SUMMARY | ~2020-06-07 | XMS | Encounter Summary ---
Demographics + + + | Address | [address] | | | [place] [address] | + + + | Home Phone [...] Team Providers + +------+ + | Care Dispersion Mixer Name | Role | Phone | [...] + | 03/27/ | Telephone | [facility] | Anshumarianatesha, Daljit, | Other (Missed | | 2019 | | CARDIOLOGY [address] | MD [address] | [facility]) | | | | [place], | [place], | | | | | [place] [address] | [place] [address] | | | | | [phone] | [phone] | | | | | | | [...] | | | | | | [place] [address] | | | | | | [phone] | | | | | | | | +--------+ + + + + documented as of this encounter Visit Diagnoses Not on filedocumented in this encounter"
--- OUTSIDE RECORDS SUMMARY | ~2020-06-07 | XMS | Encounter Summary ---
Demographics + + + | Address | [address] | | | [place] [address] | + + + | Home Phone [...] Providers + +------+ + | Care Solution Manager Name | Role | Phone | [...] | CARDIOLOGY [address] | [address] | reprogramming/check | | | | [place], | [place], | DO [place] DELETE | | | | [place] [address] | [place] [phone] | (Primary Dx); | | | | [phone] | [phone] | Pacemaker - | | | | [...] | | | | | | [place] [address] | | | | | | [phone] | | | | | | | [...]
--- OUTSIDE RECORDS SUMMARY | ~2020-06-07 | XMS | Encounter Summary ---
Demographics + + + | Address | [address] [place] [address] | | | [place] [address] | + + + | Home Phone [...] Providers + +------+ + | Care Waiter/Waitress Captain Name | Role | Phone | [...] + | 12/21/ | Office | [facility] | [place], | Chest pain (Primary | | 2013 | Visit | CARDIOLOGY [address] | [address] | Dx); Symptomatic | | | | [place], | [place], | PVCs; | | | | [place] [address] | [place] [address] | Hyperlipidemia; | | | | [phone] | [phone] | Hypertension; | | | | | [...] this time to see a specialist in [place] and he was to follow up with [...] MOUTH EVERY DAY 30 table t 5 [place]-3 Fatty Acids (SALMON OIL-1000 PO) [...] arrhythmia performed by Dr. Gambino at [facility] on 01/30/2013. Patient had spontaneous PVCs [...] to go back in 3 days to [place] for an attempt of ablation under general [...] weeks. He is in class II of [place] Heart Association funct ional class. There are [...] made to ensure accuracy; however, inadvertent computerized dedicated owner operator errors may be pre sent. documented [...] | | | | | | [place] [address] | | | | | | [phone] | | | | | | | [...] type of vessel, | | [place] or graft | + + documented in this encounter
--- OUTSIDE RECORDS SUMMARY | ~2020-06-07 | XMS | Encounter Summary ---
Demographics + + + | Address | [address] | | | [place] [address] | + + + | Home Phone [...] + +------+ + | Care Wood Heel Fitter Machine Name | Role | Phone | [...] 2019 | | GASTROENTEROLOGY | [address], [place] | | | | | [address] [place] | [address] [place], [place] | | | | | [address] [place], [place] | [address] | | | | | [address] | | | | | | [phone] | | | +--------+ + + + [...] Daniel yesterday. We see a referral to [facility] that was submitted e arash this year. [...] were mary guevara on a referral to [facility] and it shouldn't take this long, [...] | | | | | | [place] [address] | | | | | | [phone] | | | | | | | | +--------+ + + + + documented as of this encounter Visit Diagnoses + + | Diagnosis | + + | Incontinence of feces, unspecified fecal incontinence type - Primary | + + | Diarrhea, unspecified type | + + documented in this encounter"
--- OUTSIDE RECORDS SUMMARY | ~2020-06-07 | XMS | Encounter Summary ---
Demographics + + + | Address | [address] | | | [place] [address] | + + + | Home Phone [...] Providers + +------+ + | Care Wellness Health Coach Name | Role | Phone | [...] + + | 04/24/ | Office | [facility] | Jay Cohn PA | DIDIER on CPAP (Primary | | 2012 | Visit | SLEEP DISORDER [address] | [address] | Dx) | | | | [address] [place] | [place] | | | | | [place] [address] | [address] | | | | | [phone] | | | +--------+---------+ + + + [...] pillows obtained from: [facility] [place] pressure is: 13 cm CPAP download [...] to go to [facility] [place] to have them download his memory card. I will readjust his pressure, if necessary. I will call him with the results. He is to work toward wearing his CPAP 100% of the time he is asleep. I will follow up again in 1 month, sooner prn. Fifteen minutes were spent [id number], wi th the majority of time spent [...] | | | | | | [place] [address] | | | | | | [phone] | | | | | | | | +--------+ + + + + documented as of this encounter Visit Diagnoses + + | Diagnosis | + + | DIDIER on CPAP - Primary Obstructive sleep apnea (adult) (pediatric) | + + documented in this encounter
--- OUTSIDE RECORDS SUMMARY | ~2020-06-07 | XMS | Encounter Summary ---
Demographics + + + | Address | [address] | | | [place] [address] | + + + | Home Phone [...] Team Providers + +------+ + | Care Resource Manager Forester Name | Role | Phone | [...] | 2018 | Changes | GASTROENTEROLOGY | Evaluation Engineer | | | | | [address] [facility] | | | | | | [address] [place] | | | | | | [address] | | | | | | [phone] | | | +--------+ + + + [...] | | | | | | [place] [address] | | | | | | [phone] | | | | | | | | +--------+ + + + + documented as of this encounter Visit Diagnoses Not on filedocumented in this encounter"
--- OUTSIDE RECORDS SUMMARY | ~2020-06-07 | XMS | Encounter Summary ---
Demographics + + + | Address | [address] | | | [place] [address] | + + + | Home Phone [...] Team Providers + +------+ + | Care Turnaround Planner Name | Role | Phone | [...] | ER FUP | [address] | [address] | | | | | Procedures | [place], | [place], | | | | | [place] | [place] [address] | [place] [address] | | | | | | Phone: | Phone: | | | | | | [phone] | [phone] | | | | | | Fax: | Fax: | | | | | | [phone] | [phone] | +--------+--------+ + + + + Encounter Details +--------+---------+ + + + | Date | Type | Department | Care Team | Description | +--------+---------+ + + + | 02/11/ | Office | [facility] [place] | [place], | Coronary artery | | 2017 | Visit | CARDIOLOGY [address] | [place] [address] | disease involving | | | | [place], | [place], | [place] coronary | | | | [place] [address] | [place] [address] | artery of [place] | | | | [phone] | [phone] | heart without angina | | | [...] of non-critical coronary artery d isease involving [place] coronary artery of [place] heart without angina pectoris, essential h [...] him. He sleeps on 1 pillow at [facility] without any shortness of breath. Overall, he [...] Preventative health care Coronary artery disease involving [place] coronary artery of [place] heart without angina pectoris Cannabis abuse, [...] 3RD DOSE, CALL 911 100 tablet 3 [place]-3 Fatty Acids (SALMON OIL-1000 PO) CAPS, one [...] was found Confirmed by ANGELA MARADIAGA MD ([id number]) on 01/25/2017 6:45:26 AM LAB RESULTS reviewed during visit today primarily from [facility]: LIPID Lab Results Component Value [...] PLTEX 162 11/05/2016 I reviewed records from [facility] for emergency department visit o n 01/2017 which is summarized in the HPI. Above data and testing is reviewed this visit; testing below is historical data unless othe rwise specified. ASSESSMENT: 1. Essential hypertension with goal blood pressure less than 130/80: A. Today it has been well controlled 110 mmHg. He is in class I of t he [place] Heart Association functional class. On physical examination there are no signs of fluid overload. 2. Non-critical Coronary artery disease involving [place] coronary a rtery of [place] heart without angina pectoris: A. Normal exercise sestamibi stress test on 05/25/09. LVEF by [facility] ed SPECT was 53%. B. Echocardiogram [...] to go back in 3 days to [place] for an attempt of ablation under general [...] Estimated remaining [facility] longevity is 3.5 years.. 5. Lightheadedness and [...] this chart may have been created with [employer] voice recognition software. Occasi onal wrong-word or [...] | 10/30/ | Office | Cardiology | [place], | | | 2019 | Visit | | [address] | | | | | | [place], | | | | | | [place] [address] | | | | | | [phone] | | | | | | | [...]
--- OUTSIDE RECORDS SUMMARY | ~2020-06-07 | XMS | Encounter Summary ---
Demographics + + + | Address | [address] | | | [place] [address] | + + + | Home Phone [...] Team Providers + +------+ + | Care Valve Setter Name | Role | Phone | [...] | | [place] | [place] | | | | | [address] | [address] | | | | | [phone] | | | +--------+ + + + [...] to patient and faxed lab orders to [facility] in [place]. elephone Encounter - Kira Montoya RN - [...] | | | | | | [place] [address] | | | | | | [phone] | | | | | | | | +--------+ + + + + documented as of this encounter Visit Diagnoses Not on filedocumented in this encounter"
--- OUTSIDE RECORDS SUMMARY | ~2020-06-07 | XMS | Encounter Summary ---
Demographics + + + | Address | [address] [place] [address] [place] | | | [place] [address] | + + + | Home Phone [...] [place] | | | | | [address] | | + + + + + Care Team Providers + +------+ + | Care Lease Attendant Name | Role | Phone | [...] | 2019 | | Center at [facility] [address] | MD [address] | | | | | [address] | [place], [place] | | | | | for Health and | [address] | | | | | [facility], [facility] 2 | [phone] | | | | | [place], [place] | | | | | | [address] | | | | | | [phone] | | | +--------+ + + + [...]
--- OUTSIDE RECORDS SUMMARY | ~2020-06-07 | XMS | Encounter Summary ---
Demographics + + + | Address | [address] | | | [place] [address] | + + + | Home Phone [...] Providers + +------+ + | Care Pneumatic Riveter Name | Role | Phone | [...] [place] | | | | | | [place] [address] | | | | | | [phone] | | | +--------+ + + + [...] | | | | | | [place] [address] | | | | | | [phone] | | | | | | | | +--------+ + + + + documented as of this encounter Visit Diagnoses Not on filedocumented in this encounter"
--- OUTSIDE RECORDS SUMMARY | ~2020-06-07 | XMS | Encounter Summary ---
Demographics + + + | Address | [address] | | | [place] [address] | + + + | Home Phone [...] Providers + +------+ + | Care Communications Director Name | Role | Phone | [...] + + | 01/22/ | Refill | [facility] | Kirk French | Medication Refill | | 2019 | | [facility] | MD [address] | | | | | PRIMARY CARE [address] | [address] | | | | | [address] | [place] [address] | | | | | [place], [place] | [phone] | | | | | [address] | | | | | | [phone] | | | +--------+--------+ + + + [...] Miscellaneous Notes Telephone Encounter - Geri Bear Plastic Welder - 01/23/2020 12:40 PM PSTRefill Shanell ctronically signed by Geri Bear Plastic Welder at 01/23/2020 12:40 PM PSTdocumented in this [...] | | | | | | [place] [address] | | | | | | [phone] | | | | | | | | +--------+ + + + + documented as of this encounter Visit Diagnoses Not on filedocumented in this encounter"
--- OUTSIDE RECORDS SUMMARY | ~2020-06-07 | XMS | Encounter Summary ---
Demographics + + + | Address | [address] | | | [place] [address] | + + + | Home Phone [...] Team Providers + +------+ + | Care Archivist Name | Role | Phone | + [...] | 07/12/ | Office | [facility] | Michael Amanda, | Preventative health | | 2013 | Visit | MEDIC[facility] [place] | DO [address] | care (Primary Dx); | | | | [address] | [place], [place] | Prostate cancer | | | | [place], [place] | [address] | screening; | | | | [address] | | Hypercholesterolemia | | | | [phone] | | ; Hypertension; | | | [...] in this encounter Progress Notes Michael Amanda, DO - 07/14/2013 10:53 PM PDTFormatting of this [...] clear cause was found. He has seen judge clerk and has a rechec k plan. Possible [...] W | | | | | | [place], | | | | | | [place] [address] | | | | | | [phone] | | | | | | | [...] Primary Routine general medical examination at a [facility] | | care facility | + + [...]
--- OUTSIDE RECORDS SUMMARY | ~2020-06-07 | XMS | Encounter Summary ---
Demographics + + + | Address | [address] | | | [place] [address] | + + + | Home Phone [...] Providers + +------+ + | Care Block Cuber Name | Role | Phone | + +------+ + | Kirk French MD | PCP | | + +------+ + Reason for Visit + +--------+ + | Reason | Onset | Comments | | | Date | | + +--------+ + | Chest Pain | 06/20/ | | | | 2017 | | + +--------+ + Encounter Details +--------+ + + + + | Date | Type | Department | Care Team | Description | +--------+ + + + + | 06/20/ | Telephone | [facility] | Daljit Singletary, | Chest Pain | | 2018 | | CARDIOLOGY [address] | MD [address] [place] | | | | | [place], | [place], | | | | | [place] [address] | [place] [address] | | | | | [phone] | [phone] | | | | | | | [...] RN on 06/21/18 at 14:47 elephone Encount gisela - Dileep Negrete RN - 06/20/2018 4:49 [...] He states he refuses to go to [facility] so he will come here. I stated he needs to have somebody d rive him if he comes over here. He will find a pick up truck driver and take another nitro to see [...] | | | | | | [place] [address] | | | | | | [phone] | | | | | | | | +--------+ + + + + documented as of this encounter Visit Diagnoses Not on filedocumented in this encounter
--- OUTSIDE RECORDS SUMMARY | ~2020-06-07 | XMS | Encounter Summary ---
Demographics + + + | Address | [address] [place] [address] [address] | | | [place] [address] | + + + | Home Phone [...] [place] | | | | | [address] | | + + + + + Care Team Providers + +------+ + | Care Supervisor Riveting Name | Role | Phone | + [...] 2019 | | Center at [facility] [address] | MD [address] | diarrhea; sent to | | | | [address] | [place], [place] | ED) | | | | for Health and | [address] | | | | | [facility], [facility] 2 | [phone] | | | | | [place], [place] | | | | | | [address] | | | | | | [phone] | | | +--------+ + + + [...]
--- OUTSIDE RECORDS SUMMARY | ~2020-06-07 | XMS | Encounter Summary ---
Demographics + + + | Address | [address] | | | [place] [address] | + + + | Home Phone [...] Team Providers + +------+ + | Care Fry Cook Name | Role | Phone | [...] of lumbar | | 2016 | | [facility] | Russ, DO [address] | paraspinal muscle, | | | | [facility]ENTER | [address] | initial encounter; | | | | [address] | [place], [place] | Left hip pain | | | | [place], [place] | [address] | | | | | [address] | | | | | | [phone] | | | +--------+ + + + [...] + + + +---------+ + + | [place]-3 Fatty | CAPS, one capsule by | [...] Notes by Perez Montoya PA-C at 01/25/17 708 Author: Perez Montoya PA-C Service: Emergency Department Author Type: Physician Service Center Coordinator - Certified Filed: 01/25/17 7043 Date of Service: 01/25/171457 Status: Signed Rehab Nursing Tech: Perez Montoya PA-C (Physician Service Center Coordinator - Certified) Cosigner: Russ riley DO at 01/28/17 1225 Procedures [facility] History of Present Illness Patient [...] follow-up appointment with his orthopedist tomorrow in [place]. Past Medical History Diagnosis Date Hyperlipidemia Hypertension Back pain Other chronic pain PVC (premature ventricular contraction) Sleep apnea Bipolar 1 disorder (HCC) Anxiety and depression Fibromyalgia Thrombocytopenia (HCC) Fatigue Abdominal pain Chronic neck pain Syncope Insomnia Ulcerative colitis (HCC) Sinoatrial node dysfunction (HCC) Pacemaker Hep B w/o coma PUD (peptic ulcer disease) Fatty liver disease, nonalcoholic Hypoglycemia Tachycardia CAD (coronary artery disease), viejas artery transplanted heart Thoracic ascending aortic aneurysm (HCC) Multiple substance abuse Cannabis abuse Chronic pain syndrome Past Surgical History Procedure Laterality Date Spine surgery Abdominal surgery adhesions removed Pacemaker insertion Laser ablation x3 Cardiac catheterization Hardware removal Appendectomy [facility] Knee arthroscopy Bilateral Shoulder surgery Bilateral Rotator Cuff Repairs Spinal fusion 4 Cervical fusions; [place] in [place] Spinal fusion 2 Lumbar Fusions; [place], [place] Prior to Admission medications Medication [...] mouth 2 (two) times daily. Historical Provider [facility] (OSTEO BI-FLEX ADV JOINT SHIELD [...] Education: 12 Occupational History Disabled Retired from [employer] Social History Main Topics Smoking status: [...] MD In 1 day as scheduled [facility] [address] [facility] Emergency Department If symptoms worsen [address] [place] [address] Discharge Medications: Discharge Medication List as of 01/25/2017 3:24 PM Perez Montoya PA-C 01/25/172156 onversion Tr ansaction, Provider Unknown - 01/25/2017 2:13 PM PSTFormatting of this note might be differ ent from the original. ED Notes by Jessica Arellano RN at 01/25/17 141 Author: Jessica Arellano RN Service: (none) Author Type: Registered Nurse Filed: 01/25/17 1414 Date of Service: 01/25/171412 Status: Signed Rehab Nursing Tech: Jessica Arellano RN (Registered Nurse) C/o l [...] | | | | | | [place] [address] | | | | | | [phone] | | | | | | | [...] Kalpesh Conversion - 07/06/2019 12:12 AM FRANCY [id number] years MaleXR | | LUMBAR SPINE LIMITED [...]
--- OUTSIDE RECORDS SUMMARY | ~2020-06-07 | XMS | Encounter Summary ---
Demographics + + + | Address | [address] | | | [place] [address] | + + + | Home Phone [...] Providers + +------+ + | Care Assembler Trim Name | Role | Phone | + [...] + + | 06/26/ | Office | [facility] | WorthJacek, | Diplopia (Primary | | 2012 | Visit | [facility] | [address] | Dx); Symptomatic | | | | [address] | [place] | PVCs; Hypertension | | | | [place], [place] | [address] | | | | | [address] | | | | | | [phone] | | | +--------+---------+ + + + [...] Double vision will affect your ability to seed buyer distance. This means it will be harder [...] or, difficulty with vision, speech or walking 0557-6921 [facility], [address] [place] [address], [place] [address]. All rights reserve d. This information is [...] from his pain clinic visit in the [facility] on Wednesday or he [...] by mouth Daily. 30 tablet 6 [place]-3 Fatty Acids (SALMON OIL-1000 PO) CAPS, [...] | | | | | | [place], | | | | | | [place] [address] | | | | | | [phone] | | | | | | | [...] + | [facility] | [address] | [place], [place] | [phone] | | [facility] | | [address] | | | - LABORATORY | | | | + + + + + | [facility] | [address] | [place], [place] | | | [facility] | | [address] [place] [address] | | | - LABORATORY | | [...] + | [facility] | [address] | [place] | [phone] | | [facility] | | [address] | | | - LABORATORY | | | | + + + + + | [facility] | [address] | [place] | | | [facility] | | [address] | | | - LABORATORY [...] | [facility] | | | | [facility] | | MEDICAL | | | [...] + | [facility] | [address] | [place] | [phone] | | [facility] | | [address] | | | - LABORATORY | | | | + + + + + | [facility] | [address] | [place], [place] | | | [facility] | | [address], [facility] | | | - LABORATORY [...]
--- OUTSIDE RECORDS SUMMARY | ~2020-06-07 | XMS | Encounter Summary ---
Demographics + + + | Address | [address] | | | [place] [address] | + + + | Home Phone [...] [address] | | | | | [place], | [place], | | | | | [place] [address] | [place] [address] | | | | | [phone] | [phone] | | | | | | | [...] | | | | | | [place] [address] | | | | | | [phone] | | | | | | | [...] Comment | + + | [facility] [place] | + + + +---------+ + + [...] Comment | + + | [facility] [place] | + + + +---------+ + + [...]
--- OUTSIDE RECORDS SUMMARY | ~2020-06-07 | XMS | Encounter Summary ---
Demographics + + + | Address | [address] [place] [address] [address] | | | [place] [address] | + + + | Home Phone [...] [place] | | | | | [address] | | + + + + + Care Team Providers + +------+ + | Care Flight Attendant Ramp Name | Role | Phone | + [...] | | | | | [place] | [place], [place] | | | | | | [place], [place] | [address] | | | | | | [address] | Phone: | | | | | | Phone: | [phone] | | | | | | [phone] | Fax: | | | | | | Fax: | [phone] | | | | | | [phone] | | +--------+--------+ + + + + Encounter Details +--------+---------+ + + + | Date | Type | Department | Care Team | Description | +--------+---------+ + + + | 09/28/ | Office | [facility] | Bridgette Rios, | Chronic diarrhea | | 2019 | Visit | [facility] [address] | [address] | (Primary Dx); | | | | [address] [facility] | [place], [place] | Abdominal cramping; | | | | for Health and | [address] | Unintentional weight | | | | [facility], [facility] 2 | [phone] | loss | | | | [place], [place] | | | | | | [address] | | | | | | [phone] | | | +--------+---------+ + + + [...] some lab orders to [facility] 2. 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 [facility] ~ Initial Consultation / New Patient [...] inflammatory bowel disease. CT scan done through [facility] November show ed mild diverticulosis without evidence [...] of Present Illness: Here with his from [place] for second opinion regarding severe abdominal cramps, isreal rrhea and weight loss following a GI illness contracted during a trip to [place]. He reports that 2 years ago he was traveling in [place] and he had some suspicious seafood. He develo ps profound bloody diarrhea with severe abdominal pain. He was hospitalized in [facility] and w as treated with IV [...] file Gets together: Not on file Attends anabaptist service: Not on file Active member of [...] Plan and Recommendations: 1. [facility] in [place] for stool studies as outlined above 2. If negative and symptoms persist, recommend capsule endoscopy (this could be completed b y local patent leather sorter or he could return to [place] for this test) 3. Nortryptiline 25mg q HS with instruction to titrate to 50mg q HS after 2 weeks if tolera kevin Follow-Up: with local patent leather sorter Counseling Time: I spent a total of 35 minutes with this patient, of which greater than 50 % of the time was spent in counseling. Specific issues that were discussed included a revie w of the disease, diagnostic tools that help in our management plans for the patient's chron ic diarrhea, abdominal cramping and weight loss and goals for treatment. Bridgette Rios MD Lease Analyst Gastroenterology documented in this e ncounter Plan [...]
--- OUTSIDE RECORDS SUMMARY | ~2020-06-07 | XMS | Encounter Summary ---
Demographics + + + | Address | [address] | | | [place] [address] | + + + | Home Phone [...] Team Providers + +------+ + | Care Eastern Philosophy Professor Name | Role | Phone | [...] | Aneurysmal | [place], | [address] | | | | | dilatation | PARISA Solis | [place], | | | | | (HCC) | [address] | [place] | | | | | Procedures | [place] | [address] | | | | | ECHO | [place], | Phone: | | | | | Complete | [place] | [phone] | | | | | | [address] | Fax: | | | | | | Phone: | [phone] | | | | | | [phone] | | | | | | | Fax: | | | | | | | [phone] | | +--------+--------+ + + + + [...] | dilatation (HCC) | | | | [place], | [place], | (Primary Dx) | | | | [place] [address] | [place] [address] | | | | | [phone] | [phone] | | | | | | | [...] | | | | | | [place], | | | | | | [place] [address] | | | | | | [phone] | | | | | | | [...] Room Number SARAH Patient | | | [id number] Date of Study 11/16/2017 Number | | | Visit Number [id number] | | | Referring Physician GURJIT TROY Number | | | ELIZABETHANGELIA SOLIS Date | | | of 1960 Stream Control Officer ROMAINE | | | MARISSA TIPTON Age 57 year(s) Interpreting | | | GURJIT TROY | | | Cleaning Laborer SYDNI CAGLE, | | | | | | Gender Male Nurse | | | Stress Driver Education Instructor Procedure Type of | | | Study [...] | | | EF | | | Lwgrcxpqa60% Left Ventricle Diastolic Dimension: 5.12 cm | [...] Volume: 46.33 ml | | | EF Hryqauihb87% | | | | | | Left [...] BARRY Room Number SARAH | | Patient [id number] Date of Study 11/16/2017 Number Visit Number | | [id number] Referring Physician GURJIT TROY | | Number RHBROCKARD IRMA Date of | | 1960 Stream Control Officer ROMAINE TIPTON RDCS Age 57 year(s) | | Interpreting GURJIT TROY Cleaning Laborer | | SYDNI CAGLE MD | | [...] LA Volume: 46.33 ml | | EF Yhkzoqqrj12% Left Ventricle Diastolic Dimension: 5.12 cm Systolic [...] LA Volume: 46.33 ml | | EF Jqpcxdzlf66% | | | | Left Ventricle | [...]
--- OUTSIDE RECORDS SUMMARY | ~2020-06-07 | XMS | Encounter Summary ---
Demographics + + + | Address | [address] | | | [place] [address] | + + + | Home Phone [...] Providers + +------+ + | Care New Grad Rn Name | Role | Phone | + +------+ + | Kirk French MD | PCP | | + +------+ + Encounter Details +--------+ + + + + | Date | Type | Department | Care Team | Description | +--------+ + + + + | 01/25/ | Hospital | [facility] | Daljit Singletary, | Stable angina | | 2019 | Encounter | MED CTR CV INTRA OP | [address] | pectoris ([facility]) | | | | [address] | [address] [place], | | | | | [place] | [place] [address] | | | | | [address] | [phone] | | | | | [phone] | | | +--------+ + + + [...] as a collagen plugis used on the chaseley triny site to close the site, you [...] by your healthcare provider Date Last Reviewed: 09/22/201619999514-9651 [employer]. [address] [place] [address]. All righ ts reserved. This information is [...] + + + +---------+ + + | [place]-3 Fatty | CAPS, one capsule by | [...] of non-critical coronary artery d isease involving [place] coronary artery of [place] heart without angina pectoris, essential h ypertension, [...] Preventative health care Coronary artery disease involving [place] coronary artery of [place] heart without angina pectoris Cannabis abuse, daily [...] 3RD DOSE, CALL 911 100 tablet 3 [place]-3 Fatty Acids (SALMON OIL-1000 PO) CAPS, one [...] was found Confirmed by ANGELA MARADIAGA MD ([id number]) on 01/03/2019 8:10:39 PM LAB RESULTS reviewed during visit today primarily from [facility]: LIPID Lab Results Component Value Date TRIG [...] the HPI. RESULTS- I reviewed reports from [facility]: Xr Chest Ap Portable Result Date: 01/02/2019 [...] ASSESSMENT: 1. Non-critical Coronary artery disease involving [place] coronary artery of [place] heart [facility] angina pectoris: A. Normal exercise [...] Symptoms with moderate exertion of t he [place] Heart Association functional class. Heart failure stage [...] go back in 3 days t o [place] for an attempt of ablation under general [...] if he has any further problems Christine, Coffee Plantation Worker am acting as a scribe on behalf of, and in the pres ence of PARISA Lomas. - Christine Rodriguez, Coffee Plantation Worker 01/11/2019 13:46 I, PARISA Lomas, personally performed the services described in this documentati on, as scribed in my presence and it is both accurate and complete. -PARISA Lomas 01/11/2019 Portions of this chart may have been created with [employer] voice recognition software. Occasi onal wrong-word or [...] W | | | | | | [place], | | | | | | [place] [address] | | | | | | [phone] | | | | | | | [...] (1960) MEDICAL RECORD NUMBER: | | | [id number] OF PROCEDURE: 01/25/2019 MATERIALS DEVELOPMENT ENGINEER: Daljit | | | MD Gemini PROCEDURES [...] Sanchez, (1960) | | OF PROCEDURE: 01/25/2019PRIMARY FREIGHT ELEVATOR OPERATOR: Daljit Singletary MD PROCEDURES | | [...] | Aggressive medical management. | | at 9:33[facility] PROVIDER:Kirk French MDFor additional detail as [...]
--- OUTSIDE RECORDS SUMMARY | ~2020-06-07 | XMS | Encounter Summary ---
Demographics + + + | Address | [address] | | | [place] [address] | + + + | Home Phone [...] Providers + +------+ + | Care Top Polisher Name | Role | Phone | [...] | | | | Sinoatrial | Geri, DAIRY AND FOOD LABORATORY ASSISTANT | [address] | | | | | node | [address] | [place], | | | | | dysfunction | [place] | [place] | | | | | (HCC) | [place], [place] | [address] | | | | | Coronary | [address] | Phone: | | | | | artery | Phone: | [phone] | | | | | disease | [phone] | Fax: | | | | | involving | Fax: | [phone] | | | | | [place] | [phone] | | | | | | coronary | | | | | | | artery of | | | | | | | [place] heart | | | | | | [...] | | | | | | Complete [place] | | | | | | | ECHO HEART | | | | | | | XTHORACIC,[place] | | | | | | | MPLETE W | | | | | | | DOPPLER [place] | | | | | | | [...] Visit | CARDIOLOGY [address] | DAIRY AND FOOD LABORATORY ASSISTANT [address] | dysfunction (HCC) | | | | [place], | St [place], [place] | with symptomatic | | | | [place] [address] | [address] | bradycardia (Primary | | | | [phone] | | Dx); Coronary | | | | | | artery disease | | | | | | involving [place] | | | | | | coronary artery of | | | | | | [place] heart without | | | | | [...] Preventative health care Coronary artery disease involving [place] coronary artery without angina pectoris Cannabis abuse, [...] by mouth every evening. 90 tablet 3 [facility] Natural Products (OSTEO BI-FLEX/5-LOXIN ADVANCED [...] 3rd dose, call 911 100 tablet 3 [place]-3 Fatty Acids (SALMON OIL-1000 PO) CAPS, one [...] scanned Paceart documentation and device PDF in G3 for interrogation (with progr amming changes) performed [...] to go back in 3 days to [place] for an attempt of ablation under general [...] dizziness. He is in class I-II of [place] Heart Association functional class. T here [...] this chart may have been created with [employer] voice recognition software. Occasi onal wrong-word or [...] Device Interrogation 2. Coronary artery disease involving [place] coronary artery of [place] heart without angina pectoris I25.10 414.01 ECHO [...] | | | | | | [place] [address] | | | | | | [phone] | | | | | | | [...] [facility] | [facility] | | [place] Room Number SARAH Patient | [facility] | | [id number] Date of Study 06/16/2016 Number | - IMAGING | | Visit Number [id number] | | | Referring Physician JOSE ARMANDO GARCIA Number Date of 1960 | | | Glue Maker Bone LUIS FERNANDO DUARTE Age | | | 56 year(s) Interpreting | | | GURJIT TROY | | | Cosmetology Instructor SYDNI CAGLE | | | Gender | | | Male Nurse Procedure Type of Study TTE | | | procedure: ECHO Complete. Procedure dateDate: 06/16/2016Start: 10:55 | | | AM Technical Quality: Adequate visualizationStudy Location: Echo | | | LabIndications: CAD [place] CORONARY ARTERY 414.01/ I25.10 and | | [...] BARRY Room Number SARAH | | Patient [id number] Date of Study 06/16/2016 Number Visit Number | | [id number] Referring Physician JOSE ARMANDO GARCIA Number | | Date of 1960 Glue Maker Bone LUIS FERNANDO DUARTE Age | | 56 year(s) Interpreting GURJIT TROY | | Cosmetology Instructor SYDNI CAGLE, | | Gender Male NurseProcedureType of Study TTE | | procedure: ECHO Complete.Procedure dateDate: 06/16/2016Start: 10:55 AMTechnical Quality: | | Adequate visualizationStudy Location: Echo LabIndications: CAD [place] CORONARY ARTERY | | 414.01/ I25.10 and [...] [address] | [place] | [phone] | | [facility] | | [address] | | | - IMAGING | | [...] | | 2. Coronary artery disease involving [place] coronary artery of | | | [place] heart without angina pectoris I25.10 414.01 ECHO [...] + + | Coronary artery disease involving [place] coronary artery of [place] heart without | | angina pectoris [...]
--- OUTSIDE RECORDS SUMMARY | ~2020-06-07 | XMS | Encounter Summary ---
Demographics + + + | Address | [address] | | | [place] [address] | + + + | Home Phone [...] Providers + +------+ + | Care Computer Security Coordinator Name | Role | Phone | [...] + + | 07/27/ | Telephone | [facility] | Emmanuel Danile MD | Medication | | 2019 | | GASTROENTEROLOGY | [address], [place] | Recommendations | | | | [address] [place] | [address] [place], [place] | | | | | [address] [place], [place] | [address] | | | | | [address] | | | | | | [phone] | | | +--------+ + + + [...] | | | | | | [place] [address] | | | | | | [phone] | | | | | | | | +--------+ + + + + documented as of this encounter Visit Diagnoses Not on filedocumented in this encounter"
--- OUTSIDE RECORDS SUMMARY | ~2020-06-07 | XMS | Encounter Summary ---
Demographics + + + | Address | [address] | | | [place] [address] | + + + | Home Phone [...] Providers + +------+ + | Care Laboratory Sampler Name | Role | Phone | [...] + + | 01/01/ | Telephone | [facility] | Kirk French | Other ([facility]) | | 2020 | | [facility] | MD Brea [address] | | | | | PR[facility] [address] | | | | | [address] | [place] [address] | | | | | [place], [place] | [phone] | | | | | [address] | | | | | | [phone] | | | +--------+ + + + [...] Miscellaneous Notes Telephone Encounter - Geri Bear, Pta - 01/01/2020 11:09 AM PSTCalled and spoke with Kasie, states he will need to go to [facility] [place] for this as their ma chine will allow patients to have pacemaker. Let her know we have no order for an MRI for hi m to be done, she states that she will contact patient in regards to this. Electronically si gned by Geri Bear, Pta at 01/01/2020 11:09 AM PSTTelephone Encounter - Danielle london Rosy - 01/01/2020 8:33 AM PSTJuirineo, is calling regarding Other (Pacemaker) and would like a call back. Additional Call Details: States patient's pacemaker is not MRI compatible and is requestin g a call back to discuss referring patient to a location that is. Please call her back at [phone] and ask for Kasie or Christel. If this is a symptom based call, was patient offered triage? Not Applicable If this is a symptom based call and you were unable to immediately transfer the call to a p mia director of preclinical research was caller made aware that if at [...] | | | | | | [place] [address] | | | | | | [phone] | | | | | | | | +--------+ + + + + documented as of this encounter Visit Diagnoses Not on filedocumented in this encounter"
--- OUTSIDE RECORDS SUMMARY | ~2020-06-07 | XMS | Encounter Summary ---
Demographics + + + | Address | [address] | | | [place] [address] | + + + | Home Phone [...] Team Providers + +------+ + | Care Dress Marker Name | Role | Phone | [...] + + | 04/12/ | Telephone | [facility] | Daljit Singletary, | Other (issues with | | 2017 | | CARDIOLOGY [address] | MD [address] [place] | low blood pressure | | | | [place], | [place], | and dizziness) | | | | [place] [address] | [place] [address] | | | | | [phone] | [phone] | | | | | | | [...] | | | | | | [place] [address] | | | | | | [phone] | | | | | | | | +--------+ + + + + documented as of this encounter Visit Diagnoses Not on filedocumented in this encounter"
--- OUTSIDE RECORDS SUMMARY | ~2020-06-07 | XMS | Encounter Summary ---
Demographics + + + | Address | [address] | | | [place] [address] | + + + | Home Phone [...] Providers + +------+ + | Care Hand Picker Name | Role | Phone | + +------+ + | Kirk French MD | PCP | | + +------+ + Encounter Details +--------+ + + + + | Date | Type | Department | Care Team | Description | +--------+ + + + + | 08/29/ | [facility] | [facility] | Silvia | DVT (deep venous | | 2014 | Encounter | MED CTR ULTRASOUND | PARISA [place] [address] | thrombosis), | | | | [address] [place] | [address], | bilateral (HCC) | | | | [place], [place] | [place] [address] | | | | | [address] | [phone] | | | | | [phone] | | | +--------+ + + + [...] 1,000 mg by | | 0 | /1820 | | | (VITAMIN C) 1000 MG [...] + + + +---------+ + + | [place]-3 Fatty | CAPS, one capsule by | [...] | | | | | | | #[id number], exp 07/2016 | | | | | [...] | | | | | | [place] [address] | | | | | | [phone] | | | | | | | [...] VENOUS BILATERAL dated 08/29/2015 1:45 PM. | PROVIDERAULE | | HISTORY: DVT. COMPARISON: None. TECHNIQUE: Compression | [facility] | | sonography was performed from the groin through the popliteal fossa | [facility] | | in both lower extremities.. [...] conveyed to the ordering provider, by the wallpaper hanger, | | | immediately following the exam. [...] to the ordering provider, by the | |wallpaper hanger, immediately following the exam. | | | | | |Dictated and Signed by: Emmanuel Gibbons MD | | Electronically signed: 08/29/2015 3:25 PM | + + + + + + + | Performing | Address | City/State/Zipcode | Phone Number | | Organization | | | | + + + + + | [facility] | [address] | [place] | [phone] | | [facility] | | [address] | | | - IMAGING | | | | + + + + + documented in this encounter Visit Diagnoses + + | Diagnosis | + + | DVT (deep venous thrombosis), bilateral | + + documented in this encounter"
--- OUTSIDE RECORDS SUMMARY | ~2020-06-07 | XMS | Encounter Summary ---
Demographics + + + | Address | [address] | | | [place] [address] | + + + | Home Phone [...] Providers + +------+ + | Care Records Management Associate Name | Role | Phone | [...] | | | | CENTER [address] | [address] | | | | | [place] | [place] | | | | | [address] | [address] | | | | | [phone] | | | +--------+ + + + [...] + + + +---------+ + + | Soldier-3 Fatty | CAPS, one capsule by | [...] might be different fr om the original. [facility] Moe Sanchez Emergency Department Encounter Note [address] [place] [address] PCP:Kirk French MD [phone] eMERGENCY dEPARTMENT eNCOUnter [...] disease Premature ventricular contraction [facility] health care 06/26/2013 LAST PSA:12/16/2010 RESULT:0.14 LAST [...] CV LHC; Surgeon: Daljit Singletary MD; Location: [facility] CV LAB CARDIAC CATHERIZATION N/A 01/25/2019 Procedure: CV Cor Angio; Surgeon: Daljit Singletary MD; Location: [facility] CV LAB COLONOSCOPY N/A 12/24/2017 Procedure: COLONOSCOPY; Surgeon: Emmanuel Daniel MD; Location: [facility] MEDICAL PROCEDURE UNIT COLONOSCOPY N/A 01/05/2019 Procedure: COLONOSCOPY; Surgeon: Emmanuel Daniel MD; Location: [facility] MEDICAL PROCEDURE UNIT EGD 12/24/2017 [...] Procedure: EGD; Surgeon: Emmanuel Daniel MD; Location: [facility] MEDICAL PROCEDURE UNIT UPPER GASTROINTESTINAL ENDOSCOPY N/A 01/05/2019 Procedure: EGD; Surgeon: Emmanuel Daniel MD; Location: [facility] MEDICAL PROCEDURE UNIT URETEROSCOPY Left 04/13/2019 Procedure: Cystoscopy, Left ureteroscopy with laser lithotripsy, Left ureteral stent place ment; Surgeon: Matthew Uriarte MD; Location: [facility] MAIN OR VASECTOMY CURRENT MEDICATIONS COMMERCIAL LINES ACCOUNT ASSISTANT Home Medications Medication Sig amLODIPine (NORVASC) 5 [...] NO RELIEF AFTER 3RD DOSE, CALL 911 Soldier-3 Fatty Acids (SALMON OIL-1000 PO) CAPS, one [...] deficits noted, no facial assymetry noted. Equal felt checker in all extremities EKG Interpretation Interpreted by emergency department physician Rhythm: normal sinus atrial paced Rate: 73 [place]: normal Ectopy: none Conduction: P wave normal, [...] this chart may have been created with [employer] voice recognition software. Occasi onal wrong-word or [...] | | | | | | [place] [address] | | | | | | [phone] | | | | | | | [...] W?MRN: | | | | | | [id number] | | | [id number] | | | riteri | | | [...] | | | St. | | | [place] | | | y | | | [...] | | | St. | | | [place] | | | y | | | [...] | | | St. | | | [place] | | | y H. | | [...] | | | St. | | | [place] | | | y H. | | [...] | | | M.D. | | | Reliability Technicians | | | al | | | [...] | | | ent/60 | | | [id number] | | | -5586- | | | [...] | | | | | | [employer] | | | | | [...] + | [facility] | [address] | [place] | [phone] | | [facility] | | [address] | | | - LABORATORY | | [...] [address] | [place] | [phone] | | [facility] | | [address] | | | - LABORATORY | | [...] use as of January 18 | | [facility] | | | | 2018. Check [...] [address] | [place] | [phone] | | [facility] | | [address] | | | - LABORATORY | | [...] | 0.92 | 0.70 - 1.30 | [facility] | | | | | mg/dL | [facility] | | | | | | MEDICAL | | | | | | CENTER - | | | | | | LABORATORY | | + + + + + + | eGFR if not | >60Comment: GLOMERULAR | >=60 | [facility] | | | | FILTRATION | mL/min/1.73m2 | [facility] | | | MOZAMBICAN | RATE,ESTIMATED | | MEDICAL | | | | mL/min/1.83z0Kfri than | | CENTER - | | [...] | 9.6 | 8.7 - 10.4 | [facility] | | | | | mg/dL | [facility] | | | | [...] + | [facility] | [address] | [place] | [phone] | | [facility] | | [address] | | | - LABORATORY | | [...] + | [facility] | [address] | [place], [place] | [phone] | | [facility] | | [address] | | | - LABORATORY | | [...] [address] | [place] | [phone] | | [facility] | | [address] | | | - LABORATORY | | [...] | | | | ANGELA MARADIAGA MD ([id number]) | | | | | | on [...] | | | | | Patient Address: [address] [place] [address] | | | | | | | [place] [address], | | | | | | + + + +------+---+---+ +---+---+ | | | +---+---+ documented in this encounter
--- OUTSIDE RECORDS SUMMARY | ~2020-06-07 | XMS | Encounter Summary ---
Demographics + + + | Address | [address] | | | [place] [address] | + + + | Home Phone [...] | + + +---------+ + | Nadine Knigsley | ECON | Unknown | | + + +---------+ + Care Team Providers + +------+ + | Care Security Control Center Operator Name | Role | Phone | + +------+ + PCP | Unavailable | + +------+ + Encounter Details +--------+ + + + + | Date | Type | Department | Care Team | Description | +--------+ + + + + | 09/24/ | [facility] | [facility] | Evan Gandara MD | | | 2005 | Encounter | MED CTR XRAY [address] | [address] [facility] | | | | | [place] | [place] | | | | | [place] [address] | [address] | | | | | [phone] | | | +--------+ + + + [...] | | | | | | [place] [address] | | | | | | [phone] | | | | | | | | +--------+ + + + + documented as of this encounter Visit Diagnoses Not on filedocumented in this encounter"
--- OUTSIDE RECORDS SUMMARY | ~2020-06-07 | XMS | Encounter Summary ---
Demographics + + + | Address | [address] | | | [place] [address] | + + + | Home Phone [...] Team Providers + +------+ + | Care Zoology Technical Officer Name | Role | Phone [...] | | | pain | [address] | [address] | | | | | Procedures | [place] | [place], | | | | | [place] Nuclear | [place], [place] | [place] | | | | | Stress Test | [address] | [address] | | | | | (Vasodilator | Phone: | Phone: | | | | | ) CHG | [phone] | [phone] | | | | | MYOCARDIAL | Fax: | Fax: | | | | | SPECT | [phone] | [phone] | | | | | MULTIPLE | [...] 2012 | | CARDIOLOGY [address] | DRAY TRUCK DRIVER [address] | interactions, chest | | | | [address] [place], | St [place], [place] | pain) | | | | [place] [address] | [address] | | | | | [phone] | | | +--------+ + + + [...] 10/17/2013 17:15 elephone Encounter - Geri Bautista, DRAY TRUCK DRIVER - 10/17/2013 12:54 PM PSTAmy, I think [...] to his symptoms. He was evaluated in [place] at [facility] with Dr. Qureshi in electrophysiology, [...] advised that he can not drive to [place] in his condition an d he "won't go to the ER in [place]". I strongly advised that our recommendation would [...] | 10/30/ | Office | Cardiology | [place], | | | 2019 | Visit | | [address] [place] [address] | | | | | | Art [place], | | | | | | [place] [address] | | | | | | [phone] | | | | | | | | +--------+ + + + + documented as of this encounter Results [place] Nuclear Stress Test (Vasodilator) (12/07/2013 7:01 AM PST) + + | Specimen | + + | | + + + + + | Narrative | Performed At | + + + | [facility] | [place] | | Department [address] [place] | [facility] | | [ rep ct street[address]] [ rep ct city | [facility] | | st zip] Signed | - IMAGING | | | | | Patient Name: MOE GAY | | | Physician: JACKLYN : 1960 Age: 53 Sex: M Unit | | | #: [id number] Exam Date: 12/06/13 Location: | | | [facility] Report #: [id number] Page: | | | %(RAD)RES..mtdd.print.filter("pg") of %(RAD) | | | RES..mtdd.print.filter("tpg") | | | | | | Accession Number: [id number] | | | PERSANTINE SESTAMIBI STRESS TEST, [...] Transcribed Date/Time: 12/07/2013 08:18 | | | House Wirer: <<Signature on File>> | | | | | | Daljit Singletary MD [facility] FASE12/07/13 1321 <Electronically signed | | | by Daljit Singletary MD, [facility], FACP, FASE, FASNC> Daljit | | | MD Gemini [facility] FASE 12/07/13 0701 House Wirer: Webmedx | | | Ccnfzsdnfrsci16/16/14 0818 PARISA Garcia | | + + + + + + + + | Performing | Address | City/State/Zipcode | Phone Number | | Organization | | | | + + + + + | [facility] | [address] | [place] | [phone] | | [facility] | | [address] | | | - IMAGING | | | | + + + + + documented in this encounter Visit Diagnoses + + | Diagnosis | + + | Other chest pain - Primary | + + documented in this encounter
--- OUTSIDE RECORDS SUMMARY | ~2020-06-07 | XMS | Encounter Summary ---
Demographics + + + | Address | [address] | | | [place] [address] | + + + | Home Phone [...] Team Providers + +------+ + | Care Major Appliance Assembly Supervisor Name | Role | Phone [...] + + | 05/16/ | Telephone | [facility] | Emmanuel Daniel MD | Lab Order | | 2019 | | GASTROENTEROLOGY | [address], [place] | | | | | [address] [place] | [address] [place], [place] | | | | | [address] [place], [place] | [address] | | | | | [address] | | | | | | [phone] | | | +--------+ + + + [...] stools" . He ran out of the [employer] about a week ago but plans to [...] day. Has appt Sep 28 GI at [facility] and he is on their waiting list. He asks if Dr Daniel would be able to get him in sooner at [facility] or even [facility] or [place]. Asks if Dr Daniel will write a letter to [facility] saying he can't wait until Nov. [...] | | | | | | [place] [address] | | | | | | [phone] | | | | | | | | +--------+ + + + + documented as of this encounter Visit Diagnoses Not on filedocumented in this encounter
--- OUTSIDE RECORDS SUMMARY | ~2020-06-07 | XMS | Encounter Summary ---
Demographics + + + | Address | [address] | | | [place] [address] | + + + | Home Phone [...] Providers + +------+ + | Care Lead Principal Technical Architect Name | Role | Phone [...] | | CARDIOLOGY [address] | [address] | | | | | [place], | [place], | | | | | [place] [address] | [place] [address] | | | | | [phone] | [phone] | | | | | | | [...] AM PDTPer Joy at Dr Gambino in [place]: Patient h ad an ablation in January [...] W | | | | | | [place], | | | | | | [place] [address] | | | | | | [phone] | | | | | | | | +--------+ + + + + documented as of this encounter Visit Diagnoses Not on filedocumented in this encounter"
--- OUTSIDE RECORDS SUMMARY | ~2020-06-07 | XMS | Encounter Summary ---
Demographics + + + | Address | [address] | | | [place] [address] | + + + | Home Phone [...] Team Providers + +------+ + | Care Rental Sales Agent Name | Role | Phone | [...] loss | [address] | [address], | | | | | Anxiety | [address] [place] | [place] [address] | | | | | disorder, | [address] | [place], | | | | | unspecified | [place], [place] | [place] [address] | | | | | Chronic | [address] | Phone: | | | | | pain | Phone: | [phone] | | | | | syndrome | [phone] | Fax: | | | | | Procedures | Fax: | [phone] | | | | | office visit | [phone] | | +--------+--------+ + + + + Encounter Details +--------+---------+ + + + | Date | Type | Department | Care Team | Description | +--------+---------+ + + + | 12/26/ | Office | [facility] | Emmanuel Daniel MD | Functional diarrhea | | 2019 | Visit | GASTROENTEROLOGY | [address], [place] | (Primary Dx); | | | | [address] [place] | [address] [place], [place] | Gastrointestinal | | | | [address] [place], [place] | [address] | hemorrhage | | | | [address] | | associated with | | | | [phone] | | anorectal source; | | | [...] of diarrhea since serving in the in [facility]. His last episodes of diarrhea [...] inflammatory bowel disease. CT scan done through [facility] November s howed mild diverticulosis without [...] | 2019 | Visit | | Janeen, CORRECTION OFFICER REFORMATORY [address] | | | | | | [place], | | | | | | [place] [address] | | | | | | [phone] | | | | | | | [...]
--- OUTSIDE RECORDS SUMMARY | ~2020-06-07 | XMS | Encounter Summary ---
Demographics + + + | Address | [address] | | | [place] [address] | + + + | Home Phone [...] Providers + +------+ + | Care Lining Folder Name | Role | Phone | [...] + + | 08/24/ | Office | [facility] | [place], | Ascending thoracic | | 2018 | Visit | CARDIOLOGY [address] | [address] [place] [address] | aortic aneurysm | | | | [place], | [place], | ([facility]) (Primary Dx); | | | | [place] [address] | [place] [address] | Syncope, unspecified | | | | [phone] | [phone] | syncope type; | | | | | | Hypertension, | | | | | | unspecified type; | | | | | | Coronary artery | | | | | | disease involving | | | | | | [place] coronary | | | | | | artery of [place] | | | | | | heart [...] of non-critical coronary artery d isease involving [place] coronary artery of [place] heart without angina pectoris, essential h ypertension, [...] Preventative health care Coronary artery disease involving [place] coronary artery of [place] heart without angina pectoris Cannabis abuse, daily [...] 3RD DOSE, CALL 911 100 tablet 3 [place]-3 Fatty Acids (SALMON OIL-1000 PO) CAPS, one [...] now present Confirmed by ANGELA MARADIAGA MD ([id number]) on 07/28/2018 6:03:35 AM LAB RESULTS reviewed [...] PLTEX 157 04/11/2018 I reviewed records from [facility] for emergency department visit o n [...] go back in 3 days to [place] for an attempt of ablation under general [...] He is in class II of the [place] [employer] f unctional class. There are [...] subsided. 2. Non-critical Coronary artery disease involving [place] coronary artery of [place] heart [facility] angina pectoris: A. Normal exercise sestamibi stress test on 05/25/09. LVEF by [facility] ed SPECT was 53%. B. Echocardiogram [...] this chart may have been created with [employer] voice recognition software. Occasi onal wrong-word or [...] W | | | | | | [place], | | | | | | [place] [address] | | | | | | [phone] | | | | | | | [...] + + | Coronary artery disease involving [place] coronary artery of [place] heart without | | angina pectoris | [...]
--- OUTSIDE RECORDS SUMMARY | ~2020-06-07 | XMS | Encounter Summary ---
Demographics + + + | Address | [address] | | | [place] [address] | + + + | Home Phone [...] Providers + +------+ + | Care Senior Salesforce Developer Name | Role | Phone | + +------+ + PCP | Unavailable | + +------+ + Encounter Details +--------+ + + + + | Date | Type | Department | Care Team | Description | +--------+ + + + + | 02/07/ | [facility] | [facility] | Unknown, | | | 1995 | Encounter | MED CTR XRAY [address] | MD Stefany . | | | | | [place] | | | | | | [place] [address] | (Fax) | | | | | [phone] | | | +--------+ + + + [...] | | | | | | [place] [address] | | | | | | [phone] | | | | | | | | +--------+ + + + + documented as of this encounter Visit Diagnoses Not on filedocumented in this encounter"
--- OUTSIDE RECORDS SUMMARY | ~2020-06-07 | XMS | Encounter Summary ---
Demographics + + + | Address | [address] [place] [address] [place] | | | [place] [address] | + + + | Home Phone [...] [place] | | | | | [address] | | + + + + + Care Team Providers + +------+ + | Care Automobile Accessories Installer Name | Role | Phone | [...] | | Bradycardia | | | | [facility] [place] | | | | | | and Healing, | | | | | | Building [address] | | | | | | [place], [place] | | | | | | [address] | | | | | | [phone] | | | +--------+------+ + + + [...] Way Lab) | [facility] | | [place] [address] [address] [facility] | REGIONAL | | [place] [address] | LABORATORY | + + + + + + + + | Performing | Address | City/State/Zipcode | Phone Number | | Organization | | | | + + + + + | [facility] | [address] | [place] [address] | | | LABORATORY | | | [...] RLB ([address] [facility]) | | | [facility] [place] [address] | | | [place] [address] | | + + + + + + + + | Performing | Address | City/State/Zipcode | Phone Number | | Organization | | | | + + + + + | [facility] | [address] | [place] [address] | | | LABORATORY | | | [...] | | | DEPARTMENT | | | [place] | | | OF | | | [...] | + + + + + | [facility] | [address] | [place] [address] | | | PATHOLOGY | [address] | | | + + + + + documented in this encounter Visit Diagnoses + + | Diagnosis | + + | Chest pain Chest pain, unspecified | + + | Bradycardia Other specified cardiac dysrhythmias | + + documented in this encounter"
--- OUTSIDE RECORDS SUMMARY | ~2020-06-07 | XMS | Encounter Summary ---
Demographics + + + | Address | [address] | | | [place] [address] | + + + | Home Phone [...] Providers + +------+ + | Care Pharmacy Clinical Specialist Name | Role | Phone | [...] | CARDIOLOGY [address] | [address] | (Primary Dx); | | | | [place], | [place], | Tachycardia; | | | | [place] [address] | [place] [address] | Coronary artery | | | | [phone] | [phone] | disease involving | | | | | | [place] coronary | | | | | | artery of [place] | | | | | | heart [...] | | | | | | [place] [address] | | | | | | [phone] | | | | | | | [...] involving | | | | | | [place] coronary | | | | | | artery of [place] | | | | | | heart [...] MD | | | | | | ([id number]) on 06/29/2018 | | | | | [...] + | Coronary artery disease involving [place] coronary artery of [place] heart without | | angina pectoris | + + | Hypertension, unspecified type | + + documented in this encounter"
--- OUTSIDE RECORDS SUMMARY | ~2020-06-07 | XMS | Encounter Summary ---
Demographics + + + | Address | [address] [place] [address] [address] | | | [place] [address] | + + + | Home Phone [...] [place] | | | | | [address] | | + + + + + Care Team Providers + +------+ + | Care Police Shift Commander Name | Role | Phone | + [...] 2019 | | Center at [facility] [address] | MD [address] | | | | | [address] | [place], [place] | | | | | [facility] and | [address] | | | | | [facility] 2 | [phone] | | | | | [place], [place] | | | | | | [address] | | | | | | [phone] | | | +--------+ + + + [...]
--- OUTSIDE RECORDS SUMMARY | ~2020-06-07 | XMS | Encounter Summary ---
Demographics + + + | Address | [address] | | | [place] [address] | + + + | Home Phone [...] Team Providers + +------+ + | Care Cuff Slitter Name | Role | Phone | + +------+ + PCP | Unavailable | + +------+ + Encounter Details +--------+ + + + + | Date | Type | Department | Care Team | Description | +--------+ + + + + | 06/17/ | Hospital | [facility] | | | | 2008 | Encounter | MED CTR EMERGENCY | | | | | | [address] | | | | | | [place] | | | | | | [address] | | | | | | [phone] | | | +--------+ + + + [...] | | | | | | [place] [address] | | | | | | [phone] | | | | | | | | +--------+ + + + + documented as of this encounter Visit Diagnoses Not on filedocumented in this encounter"
--- OUTSIDE RECORDS SUMMARY | ~2020-06-07 | XMS | Encounter Summary ---
Demographics + + + | Address | [address] | | | [place] [address] | + + + | Home Phone [...] Providers + +------+ + | Care Vascular Ultrasound Technologist Name | Role | Phone | [...] + | 01/25/ | Telephone | [facility] | Daljit Singletary, | Appointment | | 2017 | | CARDIOLOGY [address] | [address] [place] | | | | | [place], | [place], | | | | | [place] [address] | [place] [address] | | | | | [phone] | [phone] | | | | | | | [...] Ramirez and Geri Angel. Patient recently seen [facility] ER and has been referred for follow-up by ER provider. Referral number [id number] has been created. Called patient, left [facility] with request for patient to call back [...] | | | | | | [place] [address] | | | | | | [phone] | | | | | | | | +--------+ + + + + documented as of this encounter Visit Diagnoses Not on filedocumented in this encounter"
--- OUTSIDE RECORDS SUMMARY | ~2020-06-07 | XMS | Encounter Summary ---
Demographics + + + | Address | [address] | | | [place] [address] | + + + | Home Phone [...] Team Providers + +------+ + | Care Swing Saw Operator Name | Role | Phone | + +------+ + | Kirk French MD | PCP | | + +------+ + Reason for Visit + +--------+ + | Reason | Onset | Comments | | | Date | | + +--------+ + | Irritable Bowel | 04/21/ | | | Syndrome | 2019 | | + +--------+ + Encounter Details +--------+ + + + + | Date | Type | Department | Care Team | Description | +--------+ + + + + | 04/21/ | Telephone | [facility] | Emmanuel Daniel MD | Irritable Bowel | | 2019 | | GASTROENTEROLOGY | [address], [place] | Syndrome | | | | [address] [place] | [address] [place], [place] | | | | | [address] [place], [place] | [address] | | | | | [address] | | | | | | [phone] | | | +--------+ + + + [...] Telephone Encounter - Kaylynn Copeland RN - 04/21/2019 9:55 AM PDTPatient calls repor ting worsening nausea and abd cramping. Alternates from hard stool to diarrhea. No stool in 2 days. He has not been using the metamucil. States he forgot about it. He recently was t reated for a kidney stone but has not taken any pain medication for 3 days. He is still macy hermelinda to hear from [facility] [employer], records were refaxed 04/10/2019. She will get back on the Metamucil. He states he feels it is at his IBS that is causing his symptoms.Electro nically signed by Kaylynn Copeland RN at 04/21/2019 10:05 AM PDTdocumented in this encou nter Plan of Treatment [...] | | | | | | [place] [address] | | | | | | [phone] | | | | | | | | +--------+ + + + + documented as of this encounter Visit Diagnoses Not on filedocumented in this encounter"
--- OUTSIDE RECORDS SUMMARY | ~2020-06-07 | XMS | Encounter Summary ---
Demographics + + + | Address | [address] [place] [address] [address] | | | [place] [address] | + + + | Home Phone [...] [place] | | | | | [address] | | + + + + + Care Team Providers + +------+ + | Care Secondary Education Professor Name | Role | Phone | [...] | | | | | unspecified | [address] | | | | | | type Rectal | Ave | | | | | | bleeding | [facility] [place] | | | | | | Procedures | [address] | | | | | | CONSULT TO | Phone: | | | | | | GASTROENTERO | [phone] | | | | | | LOGY | Fax: | | | | | | | [phone] | | + +--------+ + + + [...] | | | | | Procedures | [place], [place] | [facility] and | | | | | CONSULT TO | [address] | Healing, | | | | | ENDOSCOPY | Phone: | Building [address] | | | | | UNIT: SM | [phone] | [place], [place] | | | | | [address] | Fax: | [address] | | | | | CAPSULE | [phone] | Phone: | | | | | ENDOSCOPY | | [phone] | | | | | | | Fax: | | | | | | | [phone] | + +--------+ + + + + [...] | | | | | bleeding | [place], [place] | [facility] and | | | | | Procedures | [address] | Healing, | | | | | CONSULT TO | Phone: | Building 2 | | | | | ENDOSCOPY | [phone] | [place], [place] | | | | | UNIT: | Fax: | [address] | | | | | COLONOSCOPY | [phone] | Phone: | | | | | | | [phone] | | | | | | | Fax: | | | | | | | [phone] | +--------+--------+ + + + + Reason [...] | | 2020 | | Center at [facility] [address] | MD [address] | | | | | [address] | [place], [place] | | | | | for Health and | [address] | | | | | Healing, [address] | [phone] | | | | | [place], [place] | | | | | | [address] | | | | | | [phone] | | | +--------+ + + + [...]
--- OUTSIDE RECORDS SUMMARY | ~2020-06-07 | XMS | Encounter Summary ---
Demographics + + + | Address | [address] [place] [address] [address] LOZ[address] | | | [place] [address] | + + + | Home Phone | | + + + | Preferred Language | Unknown | + + + | Marital Status | | + + + | Amish Affiliation | Unknown | + + + [...] [place] | | | | | [address] | | + + + + + Care Team Providers + +------+ + | Care Staff Physical Therapy Assistant Name | Role | Phone | [...] | | | | | Unintentiona | [address] | | | | | | l weight | Ave | | | | | | loss | [facility] [place] | | | | | | Abdominal | [address] | | | | | | cramping | Phone: | | | | | | Chronic | [phone] | | | | | | diarrhea | Fax: | | | | | | Rectal | [phone] | | | | | | bleeding [...] | | 2020 | | Center at [facility] [address] | MD [address] | | | | | [address] [place] | [facility] [place] | | | | | for Health and | [address] | | | | | Healing, Building [address] | [phone] | | | | | [facility] [place] | | | | | | [address] | | | | | | [phone] | | | +--------+ + + + [...]
--- OUTSIDE RECORDS SUMMARY | ~2020-06-07 | XMS | Encounter Summary ---
Demographics + + + | Address | [address] | | | [place] [address] | + + + | Home Phone [...] visit | CARDIOLOGY [address] | [address] | reprogramming/check | | | | [place], | [place], | DO NOT DELETE | | | | [place] [address] | [place] [address] | (Primary Dx); | | | | [phone] | [phone] | Sinoatrial node | | | | [...] | | | | | | [place] [address] | | | | | | [phone] | | | | | | | [...]
--- OUTSIDE RECORDS SUMMARY | ~2020-06-07 | XMS | Encounter Summary ---
Demographics + + + | Address | [address] | | | [place] [address] | + + + | Home Phone [...] Team Providers + +------+ + | Care Nibbler Operator Name | Role | Phone | + +------+ + | Kirk French MD | PCP | | + +------+ + Encounter Details +--------+ + + + + | Date | Type | Department | Care Team | Description | +--------+ + + + + | 12/24/ | [facility] | [facility] | Emmanuel Daniel MD | Pain of upper | | 2018 | Encounter | MED CTR MP INTRA OP | [address], [place] | abdomen (Primary | | | | [address] | [address] [place], [place] | Dx); Functional | | | | [place], [place] | [address] | diarrhea; Weight | | | | [address] | | loss | | | | [phone] | | | +--------+ + + + [...] + + + +---------+ + + | Rock-3 Fatty | CAPS, one capsule by | [...] any noct urnal symptoms. He was in [facility] 2 years ago and required hospitalization [...] severe diarrhea probable infective occurring while visiting [facility] Diarrhea etiology and significance to be [...] Endoscopy Patient: Moe Sanchez : 1960 Acct: [id number] Exam Date: Sunday, December 24, 2017 Doctor: [...] If unable to reach your physician, call [facility] Emergency Department at [address] Your doctor [...] Exams Patient: Moe Sanchez : 1960 Acct: [id number] Exam Date: Sunday, December 24, 2017 Doctor: [...] If unable to reach your physician, call [facility] Emergency Department at [address] Your doctor [...] | | | | | | [place] [address] | | | | | | [phone] | | | | | | | [...] + + | Performed at: 01 - [facility] [address], | REFERENCE LAB | | [place], [place] [id number] Investigator Fraud: William Andrew MD, Phone: | ARSH - KINA | | [phone] | | + + + + + + + + | Performing | Address | City/State/Zipcode | Phone Number | | Organization | | | | + + + + + | REFERENCE LAB | [address] | [place], [place] | [phone] | | [facility] | Petar Cortez | [address] | | + + + + + [...] [address] | [place] | [phone] | | [facility] | | [address] | | | - LABORATORY | | [...] [address] | [place] | [phone] | | [facility] | | [address] | | | - LABORATORY | | [...] [address] | [place] | [phone] | | [facility] | | [address] | | | - LABORATORY | | [...] + + | Performed at: 01 - [place] [address], | REFERENCE LAB | | [place], [place] [id number] Investigator Fraud: William Andrew MD, Phone: | ARSH CASTANON | | [phone] | | + + + + + + + + | Performing | Address | City/State/Zipcode | Phone Number | | Organization | | | | + + + + + | REFERENCE LAB | [address] | [place], [place] | [phone] | | [facility] | Drive [facility] | [address] | | + + + + + [...] ST. | [address] | [place], [place] | [phone] | | [facility] | | [address] | | | [...] [address] | [place] | [phone] | | [facility] | | [address] | | | - LABORATORY | | [...] [address] | [place] | [phone] | | [facility] | | [address] | | | - LABORATORY | | [...] [address] | [place] | [phone] | | [facility] | | [address] | | | - LABORATORY | | [...] [address] | [place] | [phone] | | [facility] | | [address] | | | - LABORATORY | | | | + + + + + DAVIAN (12/24/2017 1:19 PM PST) + + | Specimen | + + | | + + + + -+ | Narrative | Performed At | + + -+ | | [facility] | | GastroenterologyPatient Name: Moe SanchezProcedpasha Date: 12/24/2017 | [facility] | | 1:19 PMMRN: [id number] #: [id number] of : | | | 9Admit Type: AmbulatoryAge: 57Room: [facility] 01Gender: MaleNote | | | Status: FinalizedAttending MD: Emmanuel Daniel , MDProcedure: | | | Upper GI endoscopyIndications: Diarrhea, Weight | | | lossProviders: Emmanuel Daniel MD, Maria Isabel Morris RN, | | | Kim Hicks, Elastic Attacher Zigzag, Jarett | | | Sapna Barakat MD [...] the anesthesiologist and | | | the optical manufacturing technician in the endoscopy suite. Mental Status [...] PMScope Out: 1:31:13 PM | | | [facility], [address] [facility] | | | [place] [address] | | | - Discharge patient to [...] |Scope Out: 1:31:13 PM | | | [facility], [facility] [place], [place] | | | [address] | | + + -+ + +---------+ [...] 12/24/2017 | [facility] | | 1:17 PMMRN: [id number] #: [id number] of : | | | 9Admit Type: AmbulatoryAge: 57Room: [facility] 01Gender: MaleNote | | | Status: FinalizedAttending MD: Emmanuel Daniel , MDProcedure: | | | ColonoscopyIndications: Clinically significant diarrhea of | | | unexplained originProviders: Emmanuel Daniel MD, Maria Isabel | | | Arturo, RN, Kim Hicks, Elastic Attacher Zigzag, | | | Jarett Barakat MD (Anesthesia [...] | | the anesthesiologist and the optical manufacturing technician in the endoscopy suite. | | [...] [facility] | | | [facility], [place] [address] | | | [phone] | | | - Await pathology results. [...] |Scope Out: 1:48:57 PM | | | [facility], [address] [facility], [place], [place] | | | [address] | | + + -+ + +---------+ [...] | colonic mucosa with focal adenomatous change. [facility]:C2NR | | | GROSS DESCRIPTION: Received in four parts. A. Received in | | | formalin labeled "[place]oe [place], A." and labeled "duodenal bx" on | [...] | | cm, submitted, all in (D1). ka:CLR:[facility] ADDITIONAL NOTES: | | | Immunohistochemical studies were performed on this case with the | | | appropriate positive controls that react as expected. This test was | | | developed and its performance characteristics determined by [facility] | | | [employer]. It has not been cleared or approved by the U.S. Food | | | and Drug Administration. The FDA has determined that such clearance | | | or approval is not necessary. This test is used for clinical | | | purposes. It should not be regarded as investigational or for | | | research. [employer] is certified under the Clinical | | | Laboratory Improvement Amendments of 1988 (CLIA) as qualified to | | | perform high complexity clinical laboratory testing. This assay | | | has not been validated for specimens that have been decalcified. | | | PERFORMING LABORATORY: Tissue processing and slide preparation were | | | performed by [employer] [address], [facility] | | | [place] [address] (Vocational Counselor: Evan Frausto M.D. CLIA#: | | | [id number]). Professional interpretation was performed by [facility] | | | [employer], [address], [place] [address] | | | (Vocational Counselor: Evan Frausto M.D.; IA#: [id number]). | | | Diagnostician: Rafael Bales MD [...]
--- OUTSIDE RECORDS SUMMARY | ~2020-06-07 | XMS | Encounter Summary ---
Demographics + + + | Address | [address] | | | [place] [address] | + + + | Home Phone [...] Team Providers + +------+ + | Care Microfilm Clerk Name | Role | Phone | [...] + | 09/27/ | Telephone | [facility] | Geri Angel, | Appointment | | 2012 | | CARDIOLOGY [address] | SQL REPORT ANALYST [address] | | | | | [place], | [address] [place] [facility] [place] | | | | | [place] [address] | [address] | | | | | [phone] | | | +--------+ + + + [...] | | | | | | [place] [address] | | | | | | [phone] | | | | | | | | +--------+ + + + + documented as of this encounter Visit Diagnoses Not on filedocumented in this encounter"
--- OUTSIDE RECORDS SUMMARY | ~2020-06-07 | XMS | Encounter Summary ---
Demographics + + + | Address | [address] | | | [place] [address] | + + + | Home Phone [...] Providers + +------+ + | Care Petroleum Sampler Name | Role | Phone | + +------+ + | Michael Amanda DO | PCP | | + +------+ + Encounter Details +--------+ + + + + | Date | Type | Department | Care Team | Description | +--------+ + + + + | 06/26/ | Hospital | [facility] | Michael Amanda, | Diplopia | | 2012 | Encounter | MED CTR LABORATORY | DO [address] | | | | | [address] [place] | [place], [place] | | | | | [place], [place] | [address] | | | | | [address] | | | | | | [phone] | | | +--------+ + + + [...] + + + +---------+ + + | [place]-3 Fatty | CAPS, one capsule by | [...] W | | | | | | [place], | | | | | | [place] [address] | | | | | | [phone] | | | | | | | [...] + | [facility] | [address] | [place] | [phone] | | [facility] | | [address] | | | - LABORATORY | | | | + + + + + | [facility] | [address] | [place], [place] | | | [facility] | | [address], [facility] | | | - LABORATORY | [...] performed on the Javid | uIU/mL | [facility] | | | | Aldo [...] [address] | [place] | [phone] | | [facility] | | [address] | | | - LABORATORY | | | | + + + + + | [facility] | [address] | [place] | | | [facility] | | [address], [facility] | | | - LABORATORY | [...] + | [facility] | [address] | [place], [place] | [phone] | | [facility] | | [address] | | | - LABORATORY | | | | + + + + + | [facility] | [address] | [place], [place] | | | [facility] | | [id number] [place] [address] | | | - LABORATORY | | [...] + | [facility] | [address] | [place], [place] | [phone] | | [facility] | | [address] | | | - LABORATORY | | | | + + + + + | [facility] | [address] | [place], [place] | | | [facility] | | [address], [facility] | | | - LABORATORY | [...] [address] | [place] | [phone] | | [facility] | | [address] | | | - LABORATORY | | | | + + + + + | [facility] | [address] | [place] | | | [facility] | | [address] | | | - LABORATORY [...] + | [facility] | [address] | [place] | [phone] | | [facility] | | [address] | | | - LABORATORY | | | | + + + + + | [facility] | [address] | [place], [place] | | | [facility] | | [address] [place] [address] | | | - LABORATORY | | | | + + + + + documented in this encounter Visit Diagnoses + + | Diagnosis | + + | Diplopia | + + documented in this encounter"
--- OUTSIDE RECORDS SUMMARY | ~2020-06-07 | XMS | Encounter Summary ---
Demographics + + + | Address | [address] | | | [place] [address] | + + + | Home Phone [...] Providers + +------+ + | Care Aircraft Systems Repairer Name | Role | Phone | + +------+ + | Michael Amanda DO | PCP | | + +------+ + Encounter Details +--------+ + + + + | Date | Type | Department | Care Team | Description | +--------+ + + + + | 10/01/ | Hospital | [facility] | Mary Bradshaw | | | 2013 | Encounter | MED [facility] | Guy Larkin MD | | | | | [address] [place] | [address] | | | | | [place], [place] | [place], [place] | | | | | [address] | [address] | | | | | [phone] | | | +--------+ + + + [...] + + +---------+ + + | [place]-3 Fatty | CAPS, one capsule by | [...] | | | | | | [place] [address] | | | | | | [phone] | | | | | | | [...] + | MISCELLANEOUS LAB | | | [phone] | + +---------+ + + | MISCELANIOUS LAB | | | [phone] | + +---------+ + + documented in this encounter Visit Diagnoses Not on filedocumented in this encounter"
--- OUTSIDE RECORDS SUMMARY | ~2020-06-07 | XMS | Encounter Summary ---
Demographics + + + | Address | [address] | | | [place] [address] | + + + | Home Phone [...] + +------+ + | Care Director Of Physiotherapy Services Name | Role | Phone | + +------+ + | Kirk French MD | PCP | | + +------+ + Reason for Visit + +--------+ + | Reason | Onset | Comments | | | Date | | + +--------+ + | Appointment | 11/29/ | | | | 2020 | | + +--------+ + Encounter Details +--------+ + + + + | Date | Type | Department | Care Team | Description | +--------+ + + + + | 11/29/ | Telephone | [facility] | Darin Gandhi | Appointment | | 2020 | | GASTROENTEROLOGY | MD Jacek [address] | | | | | [address] [place] | [address] [place] | | | | | [address] [place], [place] | [place] [address] | | | | | [address] | [phone] | | | | | [phone] | | | +--------+ + + + [...] Telephone Encounter - Lisa Pisano RN - 11/29/2019 4:44 PM PSTPatient called the clinic after receiving a call from Johanna at [facility]; she advised pt was reluctant to call; advis ed her he had to call to schedule to review instructions; scheduled pt for pill cam on Wed at 0830; reviewed with him bowel prep, NPO 1030 night before. documented in this encounter Plan of Treatment [...] | | | | | | [place] [address] | | | | | | [phone] | | | | | | | | +--------+ + + + + documented as of this encounter Visit Diagnoses Not on filedocumented in this encounter"
--- OUTSIDE RECORDS SUMMARY | ~2020-06-07 | XMS | Encounter Summary ---
Demographics + + + | Address | [address] [place] [address] [address] LOZ[address]O | | | [place] [address] | + + + | Home Phone [...] [place] | | | | | [address] | | + + + + + Care Team Providers + +------+ + | Care Physics Professor Name | Role | Phone | [...] Chest pain | Farooq Almaguer, | Ch[address] | | | | | Bradycardia | DO [address] | | | | | Procedures | Yao Booth | [facility] | | | | | | [facility] | Health and | | | | | TRANSTHORACI | [facility] [place] | Healing, | | | | | C | [address] | [address] | | | | | ECHOCARDIOGR | Phone: | [place], [place] | | | | | AM, ADULT | [phone] | [address] | | | | | | Fax: | Phone: | | | | | | [phone] | [phone] | +--------+--------+ + + + + Encounter Details +--------+ + + + + | Date | Type | Department | Care Team | Description | +--------+ + + + + | 02/03/ | Hospital | Cardiac | | | | 2010 | Encounter | Non-Invasive Testing | | | | | | at [facility] [address] | | | | | | [facility] for | | | | | | Health and Healing, | | | | | | [address] | | | | | | [place], [place] | | | | | | [address] | | | | | | [phone] | | | +--------+ + + + [...]
--- OUTSIDE RECORDS SUMMARY | ~2020-06-07 | XMS | Encounter Summary ---
Demographics + + + | Address | [address] | | | [place] [address] | + + + | Home Phone [...] Providers + +------+ + | Care Low Emission Automobile Designer Name | Role | Phone | [...] [address] | | | | | [address] | [place] [address] | | | | | [phone] | [phone] | | | | | | | [...] | | | | | | [place] [address] | | | | | | [phone] | | | | | | | [...]
--- OUTSIDE RECORDS SUMMARY | ~2020-06-07 | XMS | Encounter Summary ---
Demographics + + + | Address | [address] | | | [place] [address] | + + + | Home Phone [...] + +------+ + | Care Natural Gas Engineer Name | Role | Phone | [...] | | | | [place] | [phone] | | | | | [address] | | | | | | [phone] | | | +--------+ + + + [...] + + + +---------+ + + | [place]-3 Fatty | CAPS, one capsule by [...] | | | | | | | #[id number], exp 07/2016 | | | | | [...] W | | | | | | [place], | | | | | | [place] [address] | | | | | | [phone] | | | | | | | [...]
--- OUTSIDE RECORDS SUMMARY | ~2020-06-07 | XMS | Encounter Summary ---
Demographics + + + | Address | [address] | | | [place] [address] | + + + | Home Phone [...] + +------+ + | Care Food Service Utility Worker Name | Role | Phone | [...] | Palpitations | [address] | | | | | Procedures | [address] | [address] [place] | | | | | ECHO | [place], | [place], [place] | | | | | Complete | [place] [address] | [address] | | | | | | Phone: | Phone: | | | | | | [phone] | [phone] | | | | | | Fax: | Fax: | | | | | | [phone] | [phone] | +--------+--------+ + + + + Reason [...] | [facility] | Daljit Singletary, | Palpitations | | 2012 | Visit | CARDIOLOGY [address] | (Primary Dx); PVC | | | | [place], | [place], | (premature | | | | [place] [address] | [place] [address] | ventricular | | | | [phone] | [phone] | contraction) | | | | | [...] present himself to the emergency department at [facility] in [place], [place]. Today, patient is apprehensive of the [...] tablet Take 1,000 mg by mouth Daily. Graff-3 Fatty Acids (SALMON OIL-1000 PO) CAPS, one [...] tablet Take 1,000 mg by mouth Daily. Graff-3 Fatty Acids (SALMON OIL-1000 PO) CAPS, one [...] Gay Date: December 21, 2012 : 1960 Materials Buyer: PARISA Velazquez Device All Round Logger: Medtronic Sense (mV) Impedance (?) Capture (V) Capture (ms) A Lead 4-5.6 423 1.5 0.09 RV Lead >31.36 539 2.0 0.09 LV Lead Battery Impedance (?): 301 Battery Voltage (V): 2.8 AK Interval (ms): 140 AR Interval (ms): 210 [place] Conduction: Mode Switch Events: N/A % of time: -CLAY MINE CUTTING MACHINE OPERATOR: 0.6 AP-CLAY MINE CUTTING MACHINE OPERATOR: 1.3 -VS: 23.9 AP-VS: 74.2 CLAY MINE CUTTING MACHINE OPERATOR: Magnetic Rate: 85 LINDA: 65 LEAH: [...] himself to the emerge ncy department at [facility] in [place], [place]. EKG showed normal sinus rhythm with [...] I will d iscuss this option with certified coding specialist in [place]. 7. Followup in 2-4 weeks. Portions of this report were transcribed using voice recognition software. Every effort wa s made to ensure accuracy; however, inadvertent computerized precipitator errors may be pre sent. documented in [...] | | | | | | [place], | | | | | | [place] [address] | | | | | | [phone] | | | | | | | | +--------+ + + + + documented as of this encounter Results ECHO Complete (12/30/2012 4:08 PM PST) + + | Specimen | + + | | + + + + + | Narrative | Performed At | + + + | [facility] Diagnostic Imaging | [place] | | Department [address] | [facility] | | [ rep [address]] [ rep ct [facility] | [facility] | | [facility]] Signed | - IMAGING | | | | | Patient Name: MOE GAY | | | Physician: MIGUELINA : 1960 Age: 52 Sex: M Unit | | | #: [id number] Exam Date: 12/30/12 Location: | | | [facility] Report #: [id number] Page: | | | %(RAD)RES..mtdd.print.filter("pg") of %(RAD) | | | RES..mtdd.print.filter("tpg") | | | | | | Accession Number: [id number] | | | E C H O C A R D I O G R A P H Y R E P O R T | | | HEIGHT: 76" WEIGHT: 270# | | | COMFORT STATION SUPERVISOR: JAMEEL REFERRING DR: TIMMY READING DR: | [...] | | | Transcribed Date/Time: 12/30/2012 16:34 Dental Cream Maker: | | | <<Signature on File>> | | | Daljit | | | MD Gemini [facility] FASE01/02/13 0955 <Electronically signed by | | | Daljit Singletary MD, [facility], FACP, FASE, FASNC> Shaistawong | | | MD CLEOPATRA Singletary 12/30/12 1608 Dental Cream Maker: Jessica | | | Jddkdisyvyixm52/08/13 1634 Daljit Singletary MD FACC | | | FASE | | + + + + + + + + | Performing | Address | City/State/Zipcode | Phone Number | | Organization | | | | + + + + + | [facility] | [address] | [place] | [phone] | | [facility] | | [address] | | | - IMAGING | | | | + + + + + documented in this encounter Visit Diagnoses + + | Diagnosis | + + | Palpitations - Primary | + + | PVC (premature ventricular contraction) Other premature beats | + + documented in this encounter
--- OUTSIDE RECORDS SUMMARY | ~2020-06-07 | XMS | Encounter Summary ---
Demographics + + + | Address | [address] | | | [place] [address] | + + + | Home Phone [...] | + + +---------+ + | Nadine Patelgalenvasrha | ECON | Unknown | | + + +---------+ + Care Team Providers + +------+ + | Care Slasher Operator Name | Role | Phone | [...] + + | 03/07/ | Telephone | [facility] | Daljit Singletary, | Results ([facility]) | | 2020 | | CARDIOLOGY [address] | MD [address] | | | | | [place], | [place], | | | | | [place] [address] | [place] [address] | | | | | [phone] | [phone] | | | | | | | [...] | | | | | | [place] [address] | | | | | | [phone] | | | | | | | | +--------+ + + + + documented as of this encounter Visit Diagnoses Not on filedocumented in this encounter"
--- OUTSIDE RECORDS SUMMARY | ~2020-06-07 | XMS | Encounter Summary ---
Demographics + + + | Address | [address] | | | [place] [address] | + + + | Home Phone [...] Providers + +------+ + | Care Sql Server Dba Developer Name | Role | Phone | [...] [address] | | | | | | [place], [place] | (Fax) | | | | | [address] | | | | | | [phone] | | | +--------+ + + + [...] | | | | | | [place] [address] | | | | | | [phone] | | | | | | | | +--------+ + + + + documented as of this encounter Visit Diagnoses Not on filedocumented in this encounter"
--- OUTSIDE RECORDS SUMMARY | ~2020-06-07 | XMS | Encounter Summary ---
Demographics + + + | Address | [address] | | | [place] [address] | + + + | Home Phone [...] + +------+ + | Care Digital Content Coordinator Name | Role | Phone [...] + | 06/28/ | Refill | [facility] | Michael Amanda, | Medication Refill | | 2012 | | [facility] [place] | DO [address] | | | | | [address] | [place] | | | | | [place], [place] | [address] | | | | | [address] | | | | | | [phone] | | | +--------+--------+ + + + [...] | | | | | | [place] [address] | | | | | | [phone] | | | | | | | | +--------+ + + + + documented as of this encounter Visit Diagnoses Not on filedocumented in this encounter"
--- OUTSIDE RECORDS SUMMARY | ~2020-06-07 | XMS | Encounter Summary ---
Demographics + + + | Address | [address] | | | [place] [address] | + + + | Home Phone [...] Team Providers + +------+ + | Care Glued Wood Tester Name | Role | Phone | + +------+ + | Michael Amanda DO | PCP | | + +------+ + Encounter Details +--------+ + + + + | Date | Type | Department | Care Team | Description | +--------+ + + + + | 12/25/ | Hospital | [facility] | Daljit Singletary, | | | 2013 | Encounter | MED CTR XRAY [address] | | | | | [place] | [place], | | | | | [place] [address] | [place] [address] | | | | | [phone] | [phone] | | | | | | | [...] | | | | | | [place], | | | | | | [place] [address] | | | | | | [phone] | | | | | | | [...] | [facility] | [place] | | Department [address] [place] [address] | [facility] | | [ rep ct street[address]] [ rep ct [facility] | | st zip] Signed | - IMAGING | | | | | Patient Name: MOE GAY | | | Physician: MIGUELINA : 1960 Age: 53 Sex: M Unit | | | #: [id number] Exam Date: 12/25/13 Location: | | | [facility] SDS-D Report #: [id number] Page: | | | %(RAD)RES..mtdd.print.filter("pg") of %(RAD) | | | RES..mtdd.print.filter("tpg") | | | | | | Accession Number: [id number] | | | LEFT HEART CATHETERIZATION, 12/25/2013 [...] the patient was taken to the cardiac company laborer. She | | | was prepared and draped in the usual fashion. Under sterile | | | technique and local anesthesia, percutaneous access was obtained | | | using #5 Mongolian sheath in the right radial artery. Right heart cath | | | was not performed on this patient. Left ventriculography was | | | performed using #5 multipurpose diagnostic catheter. The selective | | | coronary angiography was then performed in several sagittal and | | | oblique projections using #5 multipurpose and #5 Mongolian JL 3.5 | | | diagnostic catheters. [...] Transcribed | | | Date/Time: 12/25/2013 11:52 Application Packager: | | | <<Signature on File>> | | | Suwong | | | MD Gemini [facility] FAS12/25/13 1343 <Electronically signed by | | | Daljit Singletary MD, [facility], [facility], [facility]> Rashadong | | | MD Gemini [facility] FASE 12/25/13 1035 Application Packager: Webkaryx | | | Mqidbvpsprwsp08/03/14 1152 | | + + + + + + + + | Performing | Address | City/State/Zipcode | Phone Number | | Organization | | | | + + + + + | [facility] | [address] | [place] | [phone] | | [facility] | | [address] | | | - IMAGING | | | | + + + + + documented in this encounter Visit Diagnoses Not on filedocumented in this encounter
--- OUTSIDE RECORDS SUMMARY | ~2020-06-07 | XMS | Encounter Summary ---
Demographics + + + | Address | [address] | | | [place] [address] | + + + | Home Phone [...] Providers + +------+ + | Care Field Laboratory Operator Name | Role | Phone | [...] | 01/30/ | Telephone | [facility] [place] | Daljit Singletary, | Other | | 2018 | | CARDIOLOGY [address] | [address] [place] | | | | | [place], | [place], | | | | | [place] [address] | [place] [address] | | | | | [phone] | [phone] | | | | | | | [...] | | | | | | [place] [address] | | | | | | [phone] | | | | | | | [...] 05/02/2019, Expires: | | | | | navajo coronary | 01/30/2020 | | | | | artery of navajo | | | | | | heart [...] 05/02/2019, Expires: | | | | | navajo coronary | 01/31/2020 | | | | | artery of navajo | | | | | | heart without angina | | | | | | pectoris | | | | | | Hyperlipidemia, | | | | | | mixed | | + +------+--------+ + + documented as of this encounter Visit Diagnoses + + | Diagnosis | + + | Coronary artery disease involving navajo coronary artery of navajo heart without | | angina pectoris - Primary | + + | Hyperlipidemia, mixed Mixed hyperlipidemia | + + documented in this encounter"
--- OUTSIDE RECORDS SUMMARY | ~2020-06-07 | XMS | Encounter Summary ---
Demographics + + + | Address | [address] | | | [place] [address] | + + + | Home Phone [...] Team Providers + +------+ + | Care Repeater Operator Name | Role | Phone | [...] [place], [place] | | | | | [place] | | [address] Phone: | | | | | CYSTO/URETER | | [phone] | | | | | O | | Fax: | | | | | W/LITHOTRIPS | | [phone] | | | | | Y &INDWELL [...] + + | 04/13/ | Surgery | [facility] | Matthew Uriarte | Cystoscopy, Left | | 2018 | | MED CTR OR INTRA OP | Dahl, MD [address] | ureteroscopy with | | | | [address] | [address] [place] [address] | laser lithotripsy, | | | | [place] | [address] | Left ureteral stent | | | | [address] | | placement | | | | [phone] | | | +--------+---------+ + + + [...] Care Everywhere.Kidney Stones, Treating: Ureteroscopic Stone Removal (Ghanaian)Stents, Ureteral (Ghanaian)documented in this encounter Medications at Time of [...] + + + +---------+ + + | [place]-3 Fatty | CAPS, one capsule by [...] | | | | | | | tanacross coronary | | | | | | | artery of tanacross | | | | | | | [...] signed by: Matthew Uriarte MD, 04/13/2019 8:09 [facility] Jaron Galaviz MD - 04/07/2019 9:45 AM [...] CV LHC; Surgeon: Daljit Singletary MD; Location: [facility] CV LAB CARDIAC CATHERIZATION N/A 01/25/2019 Procedure: CV Cor Angio; Surgeon: Daljit Singletary MD; Location: [facility] CV LAB COLONOSCOPY N/A 12/24/2017 Procedure: COLONOSCOPY; Surgeon: Emmanuel Daniel MD; Location: [facility] MEDICAL PROCEDURE UNIT COLONOSCOPY N/A 01/05/2019 Procedure: COLONOSCOPY; Surgeon: Emmanuel Daniel MD; Location: [facility] MEDICAL PROCEDURE UNIT EGD 12/24/2017 HARDWARE [...] Procedure: EGD; Surgeon: Emmanuel Daniel MD; Location: [facility] MEDICAL PROCEDURE UNIT UPPER GASTROINTESTINAL ENDOSCOPY N/A 01/05/2019 Procedure: EGD; Surgeon: Emmanuel Daniel MD; Location: [facility] MEDICAL PROCEDURE UNIT VASECTOMY Family History: [...] 911, Disp: 100 ta blet, Rfl: 3 [place]-3 Fatty Acids (SALMON OIL-1000 PO), CAPS, one capsule by mouth daily twice daily , Disp: , Rfl: ondansetron (ZOFRAN ODT) 4 mg disintegrating tablet, Take 4 mg by mouth., Disp: , Rfl: ONE TOUCH DELICA LANCETS [facility], Check glucose as needed for hypoglycemia, Disp: [...] have not thoroughly proofread this note, and print color matcher errors are very likely to occur. CC: Kirk French MD documented in this encounter Miscellaneous Notes Op Note - Matthew Uriarte MD - 04/13/2019 1:03 PM PDTOperative Note Pt. Name/Age/: Moe Sanchez 59 y.o. 1960 Med. Record Number: [id number] Date of admission: 04/13/2019 Date of Operation/Procedure: 04/13/2019 Preoperative Diagnosis: Kidney stone Postoperative Diagnosis: same Surgeon: Matthew Uriarte MD Jawbone Breaker(s): none Anesthesia Provider(s): Anesthesiologist: Jay Benjamin MD [...] leave strings on the stent. A 6 Hebrew variable length stent was then placed over [...] Electronically Signed by: Matthew Uriarte, 04/13/2019 13:04 [facility] documented in this encounter Plan of Treatment [...] W | | | | | | [place], | | | | | | [place] [address] | | | | | | [phone] | | | | | | | [...] [facility] | | | | | | at:[phone]. | | | | + + + [...] [address], | REFERENCE LAB | | [place], [place] [id number] Gasoline Plant Operator: Yeny Rios MD, Phone: | ARSH CASTANON | | [phone] | | + + + + + + + + | Performing | Address | City/State/Zipcode | Phone Number | | Organization | | | | + + + + + | REFERENCE LAB | [address] | [place], [place] | [phone] | | [facility] | [facility] | [address] | | + + + + + [...] [address] | [place] | [phone] | | [facility] | | [address] | | | - LABORATORY | | [...] [address] | [place] | [phone] | | [facility] | | [address] | | | - LABORATORY | | [...] [address] | [place] | [phone] | | [facility] | | [address] | | | - LABORATORY | | [...] + | [facility] | [address] | [place] | [phone] | | [facility] | | [address] | | | - LABORATORY | | [...] mL/min/1.73m2 | [facility] | | | LITHUANIAN | RATE,ESTIMATED | | MEDICAL | | | | mL/min/1.88x7Ijdk than | | CENTER - | | [...] [address] | [place] | [phone] | | [facility] | | [address] | | | - LABORATORY | | [...] First | | | dose on [facility] 04/13/19 at 1400, | | | [...] HOUR PRN, | | | Pain, Starting [facility] 04/13/19 at | | | 1046, [...] | | | | | | | oyutzw-kxd-xktzi use of at least | | | [...]
--- OUTSIDE RECORDS SUMMARY | ~2020-06-07 | XMS | Encounter Summary ---
Demographics + + + | Address | [address] | | | [place] [address] | + + + | Home Phone [...] Team Providers + +------+ + | Care Swim Instructor Name | Role | Phone | [...] 2019 | | GASTROENTEROLOGY | MD Sawyer [address] | | | | | [address] | Jay Crane. [place]A | | | | | [address] | [place] [address] | | | | | [address] | | | | | | [phone] | | | +--------+ + + + [...] | | | | | | [place] [address] | | | | | | [phone] | | | | | | | [...] | | | | | Emmanuel Daniel [facility] | | | | + + [...]
--- OUTSIDE RECORDS SUMMARY | ~2020-06-07 | XMS | Encounter Summary ---
Demographics + + + | Address | [address] | | | [place] [address] | + + + | Home Phone [...] Team Providers + +------+ + | Care Residence Life Coordinator Name | Role | Phone [...] | | | pain | [address] | [address] | | | | | Procedures | [place] | [place], | | | | | [place] Nuclear | [place] | [place] | | | | | Stress Test | [address] | [address] | | | | | (Vasodilator | Phone: | Phone: | | | | | ) CHG | [phone] | [phone] | | | | | MYOCARDIAL | Fax: | Fax: | | | | | SPECT | [phone] | [phone] | | | | | MULTIPLE | [...] | MED CTR XRAY [address] | SCHOOL BUS DRIVER/TEACHER ASSISTANT [address] | | | | | [place] | [place] | | | | | [place] [address] | [address] | | | | | [phone] | | | +--------+ + + + [...] + + +---------+ + + | [place]-3 Fatty | CAPS, one capsule by | [...] | | | | | | [place] [address] | | | | | | [phone] | | | | | | | [...] Performed At | + + + | [facility] Diagnostic Imaging | [place] | | Department [address] [facility] | [facility] | | [ rep ct street1[address]] [ rep [facility] | | [facility]] Signed | - IMAGING | | | | | Patient Name: MOE GAY W | | | Physician: JACKLYN : 1960 Age: 53 Sex: M Unit | | | #: [id number] Exam Date: 12/06/13 Location: | | | [facility] Report #: [id number] Page: | | | %(RAD)RES..mtdd.print.filter("pg") of %(RAD) | | | RES..mtdd.print.filter("tpg") | | | | | | Accession Number: [id number] | | | PERSANTINE SESTAMIBI STRESS TEST, [...] Transcribed Date/Time: 12/07/2013 08:18 | | | Preprint Analyst: <<Signature on File>> | | | | | | Daljit Singletary MD [facility] FAS12/07/13 1321 <Electronically signed | | | by Daljit Singletary MD, FAC, FACP, ADELINE, [facility]> Daljit | | | MD Gemini [facility] ADELINE 12/07/13 0701 Preprint Analyst: Jessica | | | Djzvdizlpvqgt69/16/14 0818 PARISA Garcia | | + + + + + + + + | Performing | Address | City/State/Zipcode | Phone Number | | Organization | | | | + + + + + | [facility] | [address] | [place] | [phone] | | [facility] | | [address] | | | - IMAGING | | | | + + + + + documented in this encounter Visit Diagnoses + + | Diagnosis | + + | Other chest pain | + + documented in this encounter
--- OUTSIDE RECORDS SUMMARY | ~2020-06-07 | XMS | Encounter Summary ---
Demographics + + + | Address | [address] | | | [place] [address] | + + + | Home Phone [...] Providers + +------+ + | Care Rn Travel Name | Role | Phone | + +------+ + PCP | Unavailable | + +------+ + Encounter Details +--------+ + + + + | Date | Type | Department | Care Team | Description | +--------+ + + + + | 10/09/ | [facility] | [facility] | Jonathan, | | | 2008 | Encounter | MED CTR EMERGENCY | Martell Cr MD [address] | | | | | CENTER [address] | [address] | | | | | [place] | [place] [address] | | | | | [address] | [phone] | | | | | [phone] | | | +--------+ + + + [...] | | | | | | [place] [address] | | | | | | [phone] | | | | | | | | +--------+ + + + + documented as of this encounter Visit Diagnoses Not on filedocumented in this encounter"
--- OUTSIDE RECORDS SUMMARY | ~2020-06-07 | XMS | Encounter Summary ---
Demographics + + + | Address | [address] | | | [place] [address] | + + + | Home Phone [...] + +------+ + | Care Director Of Knowledge Management Name | Role | Phone | [...] [address] | | | | | [place], | [place], | | | | | [place] [address] | [place] [address] | | | | | [phone] | [phone] | | | | | | | [...] | | | | | | [place] [address] | | | | | | [phone] | | | | | | | | +--------+ + + + + documented as of this encounter Visit Diagnoses Not on filedocumented in this encounter"
--- OUTSIDE RECORDS SUMMARY | ~2020-06-07 | XMS | Encounter Summary ---
Demographics + + + | Address | [address] | | | [place] [address] | + + + | Home Phone [...] Team Providers + +------+ + | Care Aquaculturist Name | Role | Phone | + [...] | 01/30/ | Telephone | [facility] [place] | Emmanuel Daniel MD | Referral | | 2019 | | GASTROENTEROLOGY | [address], [place] | | | | | [address] | [address] [place], [place] | | | | | [address] [place], [place] | [address] | | | | | [address] | | | | | | [phone] | | | +--------+ + + + [...] Brea Daniel declines to refer patient to [facility], the referral will have to come his [...] for a referral to be sent to [facility]. When he saw Dr. Haleigh johnson he had mentioned getting another opinion from him. He tried getting a referral sent fro m his PCP but he says [facility] will not accept it, that they denied it. He says the referral has to come from Dr. Daniel. He gave me all the information. ATT: [facility] for di arrhea/IBS Their phone number is [phone] Thank you Electronically signed by Monica Kenny [...] | | | | | | [place] [address] | | | | | | [phone] | | | | | | | | +--------+ + + + + documented as of this encounter Visit Diagnoses Not on filedocumented in this encounter"
--- OUTSIDE RECORDS SUMMARY | ~2020-06-07 | XMS | Encounter Summary ---
Demographics + + + | Address | [address] | | | [place] [address] | + + + | Home Phone [...] Team Providers + +------+ + | Care Alumni Relations Officer Name | Role | Phone | [...] | 10/23/ | Refill | [facility] [place] | Kennethshaistatesha Shaistakenneth, | Medication Refill | | 2013 | | CARDIOLOGY [address] | [address] [place] | | | | | [place], | [place], | | | | | [place] [address] | [place] [address] | | | | | [phone] | [phone] | | | | | | | [...] | | | | | | [place] [address] | | | | | | [phone] | | | | | | | | +--------+ + + + + documented as of this encounter Visit Diagnoses Not on filedocumented in this encounter"
--- OUTSIDE RECORDS SUMMARY | ~2020-06-07 | XMS | Encounter Summary ---
Demographics + + + | Address | [address] | | | [place] [address] | + + + | Home Phone [...] Providers + +------+ + | Care Securities Supervisor Name | Role | Phone | [...] | | | | stenosis | L, IT COMMUNICATIONS SPECIALIST [address] | | | | | | Procedures | [address] | | | | | | CT | [address] | | | | | | Myelography | [place], [place] | | | | | | Cervical | [address] | | | | | | Spine | Phone: | | | | | | | [phone] | | | | | | | Fax: | | | | | | | [phone] | | +--------+--------+ + + + + [...] CTR CT [address] | Marietta Mason IT COMMUNICATIONS SPECIALIST [address] | stenosis | | | | [place], | [address] | | | | | [place] [address] | [place] [address] | | | | | [phone] | [phone] | | | | | | | [...] W | | | | | | [place], | | | | | | [place] [address] | | | | | | [phone] | | | | | | | [...]
--- OUTSIDE RECORDS SUMMARY | ~2020-06-07 | XMS | Encounter Summary ---
Demographics + + + | Address | [address] | | | [place] [address] | + + + | Home Phone [...] Providers + +------+ + | Care Global Marketing Specialist Name | Role | Phone [...] [place] | | | | | [place] | | [address] Phone: | | | | | CYSTO/URETER | | [phone] | | | | | O | | Fax: | | | | | W/LITHOTRIPS | | [phone] | | | | | Y &INDWELL [...] | | | | | [address] | [place] | | | | | [place] | [address] | | | | | [address] | | | | | | [phone] | | | +--------+ + + + [...] +----+---+ + + | | 0 | [place] | | | | 8 | 43-degrees | | | | 2 | | | | | 7 | | | +----+---+ + + | | 0 | First | | | | 8 | Inc/Proc St | | | | 2 | | | | | 8 | | | +----+---+ + + | | 0 | [place] off | | | | 9 | [...] 04/13/19 121 by | | eral | pyld-mil-umxcsh catheter system; | Dominga Steen RN | [...] EVALUATION Moe Sanchez 59 y.o. male 1960 [id number] Procedure(s) Cystoscopy, Left ureteroscopy with laser lithotripsy, [...] signed by Jay Benjamin MD 04/13/2019 12:03 [facility] [...] EVALUATION Moe Sanchez 59 y.o. male 1960 [id number] Procedure(s): Cystoscopy, Left ureteroscopy with laser lithotripsy, [...] hypertension, (+) cor onary artery disease of shawnee artery. . Pulmonary (+) sleep apnea. (+) [...] | | | | | | [place] [address] | | | | | | [phone] | | | | | | | [...] | | | | CONTINUOUS, Starting [facility] 04/13/19 | | AM PDT | | | | | at 0700, TKO., Pre-op | | | | | | + +---------+ +---+---+---+ +---+---+ | | | +---+---+ + +-------+ +------+---+---+ | midazolam (VERSED) 1 mg/mL | Given | 04/13/20 | 2 mg | | | | injection Intravenous, PRN, | | 19 8:24 | | | | | Starting [facility] 04/13/19 at 0808, | | AM [...]
--- OUTSIDE RECORDS SUMMARY | ~2020-06-07 | XMS | Encounter Summary ---
Demographics + + + | Address | [address] [place] [address] [address] | | | [place] [address] | + + + | Home Phone [...] [place] | | | | | [address] | | + + + + + Care Team Providers + +------+ + | Care Granite Cutter Apprentice Name | Role | Phone | [...] | | 2019 | | Center at [facility] [address] | MD [address] | | | | | [address] | [place], [place] | | | | | for Health and | [address] | | | | | [facility], [facility] 2 | [phone] | | | | | [place], [place] | | | | | | [address] | | | | | | [phone] | | | +--------+ + + + [...]
--- OUTSIDE RECORDS SUMMARY | ~2020-06-07 | XMS | Encounter Summary ---
Demographics + + + | Address | [address] | | | [place] [address] | + + + | Home Phone [...] + +------+ + | Care Plastic Surgery Manager Name | Role | Phone | [...] 2017 | | CARDIOLOGY [address] | DUST CONTROL ENGINEER [address] | | | | | [place], | [place], [place] | | | | | [place] [address] | [address] | | | | | [phone] | | | +--------+--------+ + + + [...] | | | | | | [place] [address] | | | | | | [phone] | | | | | | | | +--------+ + + + + documented as of this encounter Visit Diagnoses Not on filedocumented in this encounter"
--- OUTSIDE RECORDS SUMMARY | ~2020-06-07 | XMS | Encounter Summary ---
Demographics + + + | Address | [address] | | | [place] [address] | + + + | Home Phone [...] Providers + +------+ + | Care Counter Pocket Sewer Name | Role | Phone | [...] | | | | | [address] | | | | | | [place], [place] | | | | | | [address] | | | | | | [phone] | | | +--------+ + + + [...] | | | | | | [place] [address] | | | | | | [phone] | | | | | | | [...]
--- OUTSIDE RECORDS SUMMARY | ~2020-06-07 | XMS | Encounter Summary ---
Demographics + + + | Address | [address] | | | [place] [address] | + + + | Home Phone [...] Team Providers + +------+ + | Care Interlibrary Loan Specialist Name | Role | Phone | [...] + + | 05/26/ | Emergency | [facility] | Lizbeth Green | Atypical chest pain | | 2013 | | MED CTR EMERGENCY | DO Nicole Fink | (Primary Dx); | | | | CENTER [address] | [address] [place], [place] | Anxiety | | | | [place], [place] | [address] | | | | | [address] | | | | | | [phone] | | | +--------+ + + + [...] + + + +---------+ + + | [place]-3 Fatty | CAPS, one capsule by [...] might be diffe rent from the original. [facility] Moe Sanchez Emergency Department Encounter Note [address] [place] [address] PCP:Michael Amanda [phone] CHIEF COMPLAINT Chief Complaint [...] cm he has a cardiothoracic surgeon at [facility] who is going to be following [...] Michael Amanda DO. (As needed) Contact information: [address] [place] [address] Lizbeth Green MD 05/27/14 1004 documented in this encounter Miscellaneous Notes Plan of Care - ONBASE SCAN WAOH - 05/28/2014 12:00 AM PDT D Triage [...] | | | | | | [place] [address] | | | | | | [phone] | | | | | | | [...] the uneventful IV administration of 80 mL [id number] contrast. Timing of | | contrast bolus [...] + + | Performing | Address | City/State/[facility] | Phone Number | | Organization | | | | + +---------+ + + | MISCELLANEOUS LAB | | | [phone] | + +---------+ + + | MISCELANIOUS LAB | | | [phone] | + +---------+ + + Troponin I [...] | | | | | | [employer] | | | | | [...] + | [facility] | [address] | [place] | [phone] | | [facility] | | [address] | | | - LABORATORY | | | | + + + + + | [facility] | [address] | [place], [place] | | | [facility] | | [address] [place] [address] | | | - LABORATORY | | [...] | | | | | mg/dL | [facility] | | | | | | MEDICAL | | | | | | CENTER - | | | | | | LABORATORY | | + + + + + + | eGFR if not | >60Comment: GLOMERULAR | >=60 | [facility] | | | | FILTRATION | mL/min/1.73m2 | [facility] | | | ARMENIAN | RATE,ESTIMATED | | MEDICAL | | | | mL/min/1.40a2Mfgg than | | CENTER - | | [...] | | | | | mg/dL | [facility] | | | | | | MEDICAL [...] + | [facility] | [address] | [place] | [phone] | | [facility] | | [address] | | | - LABORATORY | | | | + + + + + | [facility] | [address] | [place], [place] | | | [facility] | | [address] | | | - [...] | Basophils | | K/uL | STJuan Digeo MARTINEZ | | | | | | [...] + | [facility] | [address] | [place] | [phone] | | [facility] | | [address] | | | - LABORATORY | | | | + + + + + | [facility] | [address] | [place], [place] | | | [facility] | | [address] [place] [address] | | | - LABORATORY | | [...]
--- OUTSIDE RECORDS SUMMARY | ~2020-06-07 | XMS | Encounter Summary ---
Demographics + + + | Address | [address] | | | [place] [address] | + + + | Home Phone [...] unspecified | [address] | | | | | type | [address] | [place], | | | | | Procedures | [place], | [place] | | | | | [place] | [place] [address] | [address] | | | | | Stress Test | Phone: | Phone: | | | | | (Vasodilator | [phone] | [phone] | | | | | ) CHG | Fax: | Fax: | | | | | MYOCARDIAL | [phone] | [phone] | | | | | SPECT | | | | | | | MULTIPLE | | | | | | | STUDIES MT | | | | | | | CV STRS TST | | | | | | | XERS&/OR RX | | | | | | | CONT ECG W/O | | | | | | | I&R MT | | | | | | | [...] | type | [address] | [address] | | | | | Procedures | [place] | [place], | | | | | FUP | [place] | [place] [address] | | | | | | [address] | Phone: | | | | | | Phone: | [phone] | | | | | | [phone] | Fax: | | | | | | Fax: | [phone] | | | | | | [phone] | | +--------+ + + + + + Encounter Details +--------+---------+ + + + | Date | Type | Department | Care Team | Description | +--------+---------+ + + + | 06/27/ | Office | [facility] | Sydni Singletary, | Pacemaker | | 2018 | Visit | CARDIOLOGY [address] | [address] [facility] | reprogramming/check | | | | [place], | [place], | DO NOT DELETE | | | | [place] [address] | [place] [address] | (Primary Dx); Chest | | | | [phone] | [phone] | pain, unspecified | | | | [...] being seen today [facility]. He was last seen 01/05/2018 at which time patient was to continue with present plan and medi cations. Since that time, patient has been seen at [place] emergency department on 018 for chest pain [...] by mouth every evening 90 tablet 0 [facility] Natural Products (OSTEO BI-FLEX/5-LOXIN ADVANCED PO) Take [...] 3RD DOSE, CALL 911 100 tablet 3 Tunas-3 Fatty Acids (SALMON OIL-1000 PO) CAPS, one [...] go back in 3 days to [place] for an attempt of ablation under general [...] PVCs. 2. Non-critical Coronary artery disease involving [place] coronary artery of [place] heart [facility] angina pectoris: A. [...] He is in a class I of [place] Heart Association functiona l class. There is [...] reviewed and edited this note. [employer] 06/27/2018 Sydni Clemente MD, personally performed the services described in this documentation, as scribed in my presence and it is both accurate and complete. Allyson Curtis, Med Ass t 06/27/2018 14:15 Electronically signed by: Sydni Singletary MD [facility] 06/27/2018 Portions of this chart may [...] | | | | | | [place] [address] | | | | | | [phone] | | | | | | | [...] 08/25/2018 13:12 Wireless even study from | [facility] MUSE | | 07/21 until 08/22/2018. Baseline [...] SYDNI | | | | | | ([id number]) on 06/27/2018 | | | | | [...]
--- OUTSIDE RECORDS SUMMARY | ~2020-06-07 | XMS | Encounter Summary ---
Demographics + + + | Address | [address] | | | [place] [address] | + + + | Home Phone [...] Team Providers + +------+ + | Care Trimming Machine Set Up Operator Name | Role [...] Dx) | | | | [address] [place] | [place], | | | | | [place] | [place] [address] | | | | | [address] | [phone] | | | | | [phone] | | | +--------+ + + + [...] W | | | | | | [place], | | | | | | [place] [address] | | | | | | [phone] | | | | | | | [...]
--- OUTSIDE RECORDS SUMMARY | ~2020-06-07 | XMS | Encounter Summary ---
Demographics + + + | Address | [address] | | | [place] [address] | + + + | Home Phone [...] Providers + +------+ + | Care Teacher Resource Name | Role | Phone | + +------+ + | Michael Amanda DO | PCP | | + +------+ + Encounter Details +--------+ + + + + | Date | Type | Department | Care Team | Description | +--------+ + + + + | 04/03/ | Hospital | [facility] | Jay Gambino MD | | | 2012 - | Encounter | [facility] | [address] | | | | | CARDIAC TRANSPLANT | [address] [place] | | | 04/04/ | | [address] | [place] [address] | | | 2012 | | [place] | [phone] | | | | | [address] | | | | | | [phone] | | | +--------+ + + + [...] 1960 ADMISSION DATE: 04/03/2013 DISCHARGE DATE: 04/04/2013 [id number] / [id number] ADMISSION DIAGNOSES: 1. Symptomatic premature ventricular contractions [...] study and ablati on. MOE GAY ADM:04/03/13 [id number] 04/04/13 [place] DISCHARGE SUMMARY [id number] [facility] PARISA Hughes [facility] MD Meena Pleitez THIS REPORT IS [...] 180 mg once daily. MOE GAY ADM:04/03/13 [id number] 04/04/13 [place] DISCHARGE SUMMARY Z640-01 [id number] [facility] PARISA Hughes [facility] Jay Gambino MD R THIS REPORT [...] 1 to 2 tablets once daily. 13. Paulding oil 2 tablets twice daily. 14. Valacyclovir 500 mg once daily. There were no new medications or medication dosage changes at time of discharge. PLAN: 1. Mr. Gay will be discharged home on medications as noted above, including his usual m edications of diltiazem and metoprolol. 2. He will be seen and followed by Dr. Gambino on 16 at 9:00 a.m. at [facility], [address]. 3. He will contact our office earlier than scheduled appointment should he have any diffic ulty prior to that time. PARISA Hughes MD A P RICHIE/med #[id number] cc: MD Dona Pleitez ARNP Suwong Wongsuwan, MD Electronically Signed 04/12/13 1400 PARISA Hughes Electronically Signed 05/22/13 1245 Jay Gambino MD MOE GAY ADM:04/03/13 [id number] 04/04/13 [place] DISCHARGE SUMMARY Z640-01 [id number] [facility] PARISA Hughes [facility] [place] MD Meena Pleitez THIS REPORT IS CONFIDENTIAL AND NOT TO BE RELEASED WITHOUT PROPER AUTHORIZATION.Electronica lly signed by Jael Brown at 05/22/2013 1:25 PM Dona Grossman ARNP - 04/04/2013 9:05 AM PDT PATIENT NAME: MOE GAY Sex/Age: M / 53Y : 1960 ADMISSION DATE: 04/03/2013 DISCHARGE DATE: 04/04/2013 [id number] / [id number] ADMISSION DIAGNOSES: 1. Symptomatic premature ventricular contractions [...] study and ablati on. MOE GAY ADM:04/03/13 [id number] 04/04/13 [place] DISCHARGE SUMMARY Z640-01 [id number] [facility] PARISA Hughes [facility] MD Meena Pleitez THIS REPORT IS [...] 180 mg once daily. MOE GAY ADM:04/03/13 [id number] 04/04/13 [place] DISCHARGE SUMMARY Z640-01 [id number] [facility] PARISA Hughes [facility] Jay Gambino MD R THIS REPORT [...] 1 to 2 tablets once daily. 13. Paulding oil 2 tablets twice daily. 14. Valacyclovir 500 mg once daily. There were no new medications or medication dosage changes at time of discharge. PLAN: 1. Mr. Gay will be discharged home on medications as noted above, including his usual m edications of diltiazem and metoprolol. 2. He will be seen and followed by Dr. Gambino on at 9:00 a.m. at [facility], [address]. 3. He will contact our office earlier than scheduled appointment should he have any diffic ulty prior to that time. PARISA Hughes MD A P RICHIE/med #[id number] cc: MD Dona Pleitez ARNP Suwong Wongsuwan, MD Electronically Signed 04/12/13 1400 PARISA Hughes MOE GAY ADM:04/03/13 [id number] 04/04/13 [place] DISCHARGE SUMMARY Z640-01 [id number] [facility] PARISA Hughes [facility] Jay Gambino MD R THIS REPORT [...] + + + +---------+ + + | Tanana-3 Fatty | CAPS, one capsule by | [...] GAY Sex/Age: M / 53Y : 1960 AUTO POLISHER: Jay Gambino MD DATE: 04/03/2013 PROCEDURE: 1. [...] via the right femoral vein with 8 Tristanian, 7 Tristanian, and 6 Tristanian sheaths. Prior to the procedure, t he [...] was in sinus rhyt hm with a GA interval of 154, QRS 107, QT 422, [...] wave in aVL. A MOE KING ADM:04/03/13 [id number] 04/04/13 [place] CARDIAC PROCEDURE REPORT Z640-01 [id number] [facility] Jay Gambino MD E-Sign: [facility] THIS REPORT IS CONFIDENTIAL AND NOT TO BE RELEASED WITHOUT PROPER AUTHORIZATION. [facility] ThermaCool 2.5 mm irrigated F-curved catheter was then advanced into the right ventricular outflow tract and 3-D mapping was performed using the [employer] navigation system. With mapping earliest activation was [...] four hours. Jay Gambino MD A P MARVIN/[facility] #[id number] cc: Jay Gambino MD Electronically Signed 05/22/13 0745 Jay Gambino MD MONA GAY ADM:04/03/13 [id number] 04/04/13 [place] CARDIAC PROCEDURE REPORT Z640-01 [id number] [facility] Jay Gambino MD E-Sign: [facility] THIS REPORT IS CONFIDENTIAL AND NOT TO [...] W | | | | | | Media [place], | | | | | | [place] [address] | | | | | | [phone] | | | | | | | [...] + | JACKRESHMA JONES | [address] | [place] [address] | | | [facility] | | | | | LABORATORY | [...] + | [facility] | [address] | [place] [address] | | | [facility] | | | | | LABORATORY | | | | + + + + + documented in this encounter Visit Diagnoses Not on filedocumented in this encounter
--- OUTSIDE RECORDS SUMMARY | ~2020-06-07 | XMS | Encounter Summary ---
Demographics + + + | Address | [address] | | | [place] [address] | + + + | Home Phone [...] Providers + +------+ + | Care Shear Assembler Name | Role | Phone | + +------+ + PCP | Unavailable | + +------+ + Encounter Details +--------+ + + + + | Date | Type | Department | Care Team | Description | +--------+ + + + + | 12/16/ | [facility] | [facility] | Naresh Mckeon | | | 2010 | Encounter | MED CTR SLEEP | MD Chaya [address] | | | | | CENTER [address] | [place] | | | | | [place] | [place] [address] | | | | | [address] | [phone] | | | | | [phone] | | | +--------+ + + + [...] | | | | | | [place] [address] | | | | | | [phone] | | | | | | | | +--------+ + + + + documented as of this encounter Visit Diagnoses Not on filedocumented in this encounter"
--- OUTSIDE RECORDS SUMMARY | ~2020-06-07 | XMS | Encounter Summary ---
Demographics + + + | Address | [address] | | | [place] [address] | + + + | Home Phone [...] Team Providers + +------+ + | Care Lombardi Developer Name | Role | Phone | + +------+ + PCP | Unavailable | + +------+ + Encounter Details +--------+ + + + + | Date | Type | Department | Care Team | Description | +--------+ + + + + | 06/12/ | [facility] | [facility] | Hunter Antunez, | | | 2007 - | Encounter | MED CTR ICU [address] | MD [address] | | | | | [place], | [place] | | | 06/15/ | | [place] [address] | 196012 | | | 2007 | | [phone] | | | +--------+ + + + [...] | | | | | | [place] [address] | | | | | | [phone] | | | | | | | | +--------+ + + + + documented as of this encounter Visit Diagnoses Not on filedocumented in this encounter"
--- OUTSIDE RECORDS SUMMARY | ~2020-06-07 | XMS | Encounter Summary ---
Demographics + + + | Address | [address] | | | [place] [address] | + + + | Home Phone [...] Providers + +------+ + | Care Commercial Makeup Artist Name | Role | Phone [...] + | 05/14/ | Office | [facility] | [place], | Coronary artery | | 2013 | Visit | CARDIOLOGY [address] | PARISA [place] [address] | disease (Primary | | | | [place], | [place], | Dx); Hypertension; | | | | [place] [address] | [place] [address] | Hyperlipidemia; | | | | [phone] | [phone] | Syncope; Other chest | | | [...] needed for Chest pain. 25 tablet 12 [place]-3 Fatty Acids (SALMON OIL-1000 PO) CAPS, [...] attenuation cannot completely be ruled out. [facility] 12/25/13, shows noncritical coronary artery disease, mild [...] exercising. He is in class II of [place] Heart Association functional class. There are no [...] to go back in 3 days to [place] for an attempt of ablation under general [...] palpitations.. He is in class II of [place] Heart Association functional class. There are no [...] his blood pressure logs from [facility] 5. Lightheadedness and dizziness/ presyncope: A. Episode [...] made to ensure accuracy; however, inadvertent computerized hairspring truing inspector errors may be pre sent. Electronically signed by: PARISA Russell 05/14/2014 7:40 documented in this encounter Procedure Notes [facility] - 05/14/2014 12:00 AM PDTAssociated Order(s): [...] | | | | | | [place] [address] | | | | | | [phone] | | | | | | | [...]
--- OUTSIDE RECORDS SUMMARY | ~2020-06-07 | XMS | Encounter Summary ---
Demographics + + + | Address | [address] | | | [place] [address] | + + + | Home Phone [...] + | 09/30/ | Telephone | [facility] | Anshumarianatesha Daljit, | Other ([place] | | 2018 | | CARDIOLOGY [address] | remote) | | | | [place], | [place], | | | | | [place] [address] | [place] [address] | | | | | [phone] | [phone] | | | | | | | [...] voice message that we have not received [employer] remote pacemaker report this week. Requested to [...] | | | | | | [place] [address] | | | | | | [phone] | | | | | | | | +--------+ + + + + documented as of this encounter Visit Diagnoses Not on filedocumented in this encounter"
--- OUTSIDE RECORDS SUMMARY | ~2020-06-07 | XMS | Encounter Summary ---
Demographics + + + | Address | [address] | | | [place] [address] | + + + | Home Phone [...] Providers + +------+ + | Care Cutter Banana Room Name | Role | Phone | [...] | | | | | | [place] [address] | | | | | | [phone] | | | +--------+ + + + [...] | | | | | | [place] [address] | | | | | | [phone] | | | | | | | | +--------+ + + + + documented as of this encounter Visit Diagnoses Not on filedocumented in this encounter"
--- OUTSIDE RECORDS SUMMARY | ~2020-06-07 | XMS | Encounter Summary ---
Demographics + + + | Address | [address] | | | [place] [address] | + + + | Home Phone [...] Team Providers + +------+ + | Care Acrobatic Dancer Name | Role | Phone | [...] | | | | | | [address] [place], [place] | | | | | | [address] | | | | | | [phone] | | | +--------+ + + + [...] | | | | | | [place] [address] | | | | | | [phone] | | | | | | | | +--------+ + + + + documented as of this encounter Visit Diagnoses Not on filedocumented in this encounter"
--- OUTSIDE RECORDS SUMMARY | ~2020-06-07 | XMS | Encounter Summary ---
Demographics + + + | Address | [address] | | | [place] [address] | + + + | Home Phone [...] Providers + +------+ + | Care Grinding Room Supervisor Name | Role | Phone [...] [address] | | | | | [address] | [place] [address] | | | | | [phone] | [phone] | | | | | | | [...] | 10/30/ | Office | Cardiology | [place], | | | 2019 | Visit | | PARISA [place] [address] | | | | | | [place], | | | | | | [place] [address] | | | | | | [phone] | | | | | | | [...] | | | Basophils | performed at [facility];[address] | 10*3/uL | LAB | | | | [address] | | | | | | [address];[place] [address] | | | | + + + [...] EXTERNAL | | | | performed at [facility];[address] | u[iU]/mL | LAB | | | | [address] | | | | | | [address];[place] [address] | | | | + + + [...] | | | | | | at [facility];[address] | | | | | | [place] | | | | | | [address] | | | | + + + [...]
--- OUTSIDE RECORDS SUMMARY | ~2020-06-07 | XMS | Encounter Summary ---
Demographics + + + | Address | [address] | | | [place] [address] | + + + | Home Phone [...] | [facility] | | | and [...] Team Providers + +------+ + | Care Drive In Teller Name | Role | Phone | [...] W | | | | | [place], | [place], | | | | | [place] [address] | [place] [address] | | | | | [phone] | | | | | | | [...] | | | | | | [place] [address] | | | | | | [phone] | | | | | | | [...]
--- OUTSIDE RECORDS SUMMARY | ~2020-06-07 | XMS | Encounter Summary ---
Demographics + + + | Address | [address] | | | [place] [address] | + + + | Home Phone [...] Providers + +------+ + | Care Furniture Removalist'S Assistant Name | Role | Phone | [...] + | 03/08/ | Telephone | [facility] | SunshinecherelleDaljit, | Other (Pacemaker | | 2013 | | CARDIOLOGY [address] | MD [address] | card ) | | | | [place], | [place], | | | | | [place] [address] | [place] [address] | | | | | [phone] | [phone] | | | | | | | [...] | | | | | | [place] [address] | | | | | | [phone] | | | | | | | | +--------+ + + + + documented as of this encounter Visit Diagnoses Not on filedocumented in this encounter"
--- OUTSIDE RECORDS SUMMARY | ~2020-06-07 | XMS | Encounter Summary ---
Demographics + + + | Address | [address] | | | [place] [address] | + + + | Home Phone [...] Providers + +------+ + | Care Director Orange Name | Role | Phone | + +------+ + | Kirk French MD | PCP | | + +------+ + Encounter Details +--------+ + + + + | Date | Type | Department | Care Team | Description | +--------+ + + + + | 07/05/ | Hospital | [facility] | Conversion | Acute neck pain | | 2017 | Encounter | [facility] | Transaction, | | | | | [address] [place] | Provider Unknown | | | | | [address] [place], [place] | [phone] | | | | | [address] | | | | | | [phone] | Alden Apolonia | | | | | | MD Shelly [address] | | | | | | [address] | | | | | | [place], [place] | | | | | | [address] | | | | | | [phone] | | | | | | | [...] + + + +---------+ + + | Flov[place]-3 Fatty | CAPS, one capsule by | [...] | | | | | | [place] [address] | | | | | | [phone] | | | | | | | [...]
--- OUTSIDE RECORDS SUMMARY | ~2020-06-07 | XMS | Encounter Summary ---
Demographics + + + | Address | [address] | | | [place] [address] | + + + | Home Phone [...] Providers + +------+ + | Care [employer] Flatbed Truck Driver Name | Role | [...] + + | 07/13/ | Telephone | [facility] | Kirk French | Referral Question | | 2019 | | [facility] | MD Eva Guidry | | | | | PRIMARY CARE [address] | | | | | [address] | [place] [address] | | | | | [place], [place] | [phone] | | | | | [address] | | | | | | [phone] | | | +--------+ + + + [...] Miscellaneous Notes Telephone Encounter - [facility] - 07/14/2019 4:06 PM PDTCalled and left VM for return call. Electronically signed by [facility] at 07/14 4:07 PM PDTTelephone Encounter - [facility] - 07/13/2019 5:03 PM PDT----- Message from Shelley Hess sent at 07/12/2019 16:52 PDT ----- Contact: Patient Patient called and has questions regarding an order for Cardio and Pulmonary Rehab at [facility]. He received a call from them today and has no idea where this came fr om. Would like a call back. He also wanted to let you know he had a total right shoulder r edone 06/13/19. Caller: Amilcar Relationship to patient: Patient Please call back at [phone] Can a Detailed VM be left on [...] | | | | | | [place] [address] | | | | | | [phone] | | | | | | | | +--------+ + + + + documented as of this encounter Visit Diagnoses Not on filedocumented in this encounter"
--- OUTSIDE RECORDS SUMMARY | ~2020-06-07 | XMS | Encounter Summary ---
Demographics + + + | Address | [address] | | | [place] [address] | + + + | Home Phone [...] | | | | | [address] | [place] [address] | | | | | | [place], [place] | Phone: | | | | | | [address] | [phone] | | | | | | Phone: | Fax: | | | | | | [phone] | [phone] | | | | | | Fax: | | | | | | | [phone] | | + + + + + + + Reason for Visit + + + | Reason | Comments | + + + | Annual Exam | | + + + Encounter Details +--------+---------+ + + + | Date | Type | Department | Care Team | Description | +--------+---------+ + + + | 01/11/ | Office | [facility] | Kirk French | Irritable bowel | | 2020 | Visit | [facility] | MD [address] | syndrome, | | | | PRIMARY CARE [address] | unspecified type | | | | [address] | [place] [address] | (Primary Dx); | | | | [place], [place] | [phone] | Chronic pain | | | | [address] | | syndrome; Smoker; | | | | [phone] | | Fatigue, unspecified | | | [...] PLT 169 06/02/2019 No results found for: [id number] No results found for: FOLATE No results [...] Plan and Recommendations: 1. [facility] lab in [place] for stool studies as outlined above 2. If negative and symptoms persist, recommend capsule endoscopy (this could be completed b y local skin [facility] or he could return to [place] for this test) 3. Nortryptiline 25mg q HS with instruction to titrate to 50mg q HS after 2 weeks if tolera kevin Follow-Up: with local [facility] Counseling Time: I spent a total of 35 minutes with this patient, of which greater than 50% of the time was spent in counseling. Specific issues that were discussed included a review of the disease, diagnostic tools that help in our management plans for the patient's chronic diarrhea, abdominal cramping and weight loss and goals for treatment. Bridgette Rios MD Ethanol Maintenance Mechanic Gastroenterology Many co and concerns: Co bleeding Co weak Co tired Co diarrhea Co cramps Co weight changes Co 14 stool in 2 hours this AM Took 8 imodium and 2 lomotil Not taking nortriptyline as prescribed by his GI Also wants a script for hemorrhoids Pending pill endoscopy and colonoscopy May be interested in [place] if no results States was down 210# now 267 Co bedridden and can't leave the house Co incontinence States many ER visits, once a week in [place], vt with IVF and dilaudid Conc re ppm Conc re r shoulder tkr and need for mri Issues with Klonopin Was arrested for DUI, self dc 08/14, had difficult withdrawal ofr 2 weeks Walks daily now for stress and exercise 1-5 miles a day Plan: ASSESSMENT AND PLAN: 1. Approximately 40 minutes of time on this gentleman's case olra-ma-jrfh, a lot of it was reviewing outside [...] atypica l. Followed by Dr. Rios at [facility]. I reviewed her notes in the [...] | | | | | | [place] [address] | | | | | | [phone] | | | | | | | | +--------+ + + + + + + +--------+ + + | Name | Type | Priori | Associated Diagnoses | Order Schedule | | | | ty | | | + + +--------+ + + | Ambulatory Referral | Outpatient | Routin | Chronic pain | Ordered: 01/11/2020 | | to [facility] | Referral | e | syndrome [...] care Routine general medical examination at a [facility] | | facility | + + [...]
--- OUTSIDE RECORDS SUMMARY | ~2020-06-07 | XMS | Encounter Summary ---
Demographics + + + | Address | [address] | | | [place] [address] | + + + | Home Phone [...] [place] | | | | | | [address] | | | | | | [phone] | | | +--------+ + + + [...] + + + +---------+ + + | [place]-3 Fatty | CAPS, one capsule by | [...] W | | | | | | [place], | | | | | | [place] [address] | | | | | | [phone] | | | | | | | | +--------+ + + + + documented as of this encounter Visit Diagnoses + + | Diagnosis | + + | Patient left after triage - Primary | + + documented in this encounter
--- OUTSIDE RECORDS SUMMARY | ~2020-06-07 | XMS | Encounter Summary ---
Demographics + + + | Address | [address] | | | [place] [address] | + + + | Home Phone [...] Team Providers + +------+ + | Care Fibre Composite Technician Name | Role | Phone | + +------+ + | Michael Amanda DO | PCP | | + +------+ + Reason for Visit +--------+--------+ + | Reason | Onset | Comments | | | Date | | +--------+--------+ + | Other | 01/04/ | RECORDS DISCLOSURE | | | 2012 | | +--------+--------+ + Encounter Details +--------+ + + + + | Date | Type | Department | Care Team | Description | +--------+ + + + + | 01/04/ | Telephone | [facility] | Silvia, | Other ( RECORDS | | 2012 | | CARDIOLOGY [address] | [place] [address] | DISCLOSURE) | | | | [place], | [place], | | | | | [place] [address] | [place] [address] | | | | | [phone] | [phone] | | | | | | | [...] this encounter Miscellaneous Notes Telephone Encounter - Tessie Rock - 01/10/2013 11:22 AM PSTThe following extra record s have been faxed today att. To Dr Gambino at [facility] fax [phone] : Holter Monitor 01/20/10 EKG 05/14/11 Labs 05/27/12, 12/12/12 Operative report 06/14/09 Stress test 06/15/08 CT of chest 04/23/08 elep le Encounter - Tessie Rock - 01/04/2013 3:43 PM PSTThe following records have been faxed to Jay Gambino MD at [facility], phone [phone] and fax : Demographics Echo 12/30/12 OC 01/03/13, 12/21/12 C 02/29/12 Chest x-ray 05/13/11 docu mented in this encounter Plan of Treatment +--------+ [...] | | | | | | [place] [address] | | | | | | [phone] | | | | | | | | +--------+ + + + + documented as of this encounter Visit Diagnoses Not on filedocumented in this encounter"
--- OUTSIDE RECORDS SUMMARY | ~2020-06-07 | XMS | Encounter Summary ---
Demographics + + + | Address | [address] | | | [place] [address] | + + + | Home Phone [...] Providers + +------+ + | Care Marketing Analytics Specialist Name | Role | Phone | [...] | | | | EMERGENCY CENTER | [place] [address] | | | | | [address] | [phone] | | | | | [place], [place] | | | | | | [address] | | | | | | [phone] | | | +--------+ + + + [...] + + +---------+ + + | [place]-3 Fatty | CAPS, one capsule by | [...] | | | | | | | #[id number], exp 07/2016 | | | | | [...] Notes by Cristal Alexander DO at 12/23/14 8611 Author: Cristal Alexander DO Service: Emergency Department Author Type: Physician Filed: 12/27/14 1135 Date of Service: 12/23/141727 Status: Signed Fire Code Inspector: Cristal Alexander DO (Physician) Procedures Additional Documentation Procedures [facility] Department of Emergency Medicine HPI History [...] patient has had neuroimaging in the past. [facility] is doing pain management. Past Medical [...] Follow up With Details Comments Contact Info [facility] this week [address] [facility] [address] [facility] [address] Kirk French MD Discharge Medications: Discharge Medication List as of 12/23/2014 7:31 PM START taking these medications Details methocarbamol (ROBAXIN) 750 MG tablet Take 2 tablets by mouth every 6 (six) hours as needed (pain)., Starting 12/23/2014, Until 01/02/15, Print Cristal Alexander DO 12/27/14 7339 onversion Transacti on, Provider Unknown - 12/23/2014 5:22 PM PSTFormatting of this note might be different fro m the original. ED Notes by Bandar Stephenson RN at 12/23/141721 Author: Bandar Stephenson RN Service: (none) Author Type: Registered Nurse Filed: 12/23/141724 Date of Service: 12/23/141721 Status: Signed Fire Code Inspector: Bandar Stephenson RN (Registered Nurse) Pt states [...] | | | | | | [place] [address] | | | | | | [phone] | | | | | | | [...] 07/07/2019 5:05 AM PDT PINA Hermosillo VICTOR [id number] years MaleCT | | CERVICAL SPINE WO [...]
--- OUTSIDE RECORDS SUMMARY | ~2020-06-07 | XMS | Encounter Summary ---
Demographics + + + | Address | [address] | | | [place] [address] | + + + | Home Phone [...] Team Providers + +------+ + | Care Singing Waiter Or Waitress Name | Role | Phone | + +------+ + PCP | Unavailable | + +------+ + Encounter Details +--------+ + + + + | Date | Type | Department | Care Team | Description | +--------+ + + + + | 02/01/ | [facility] | [facility] | Evan Gandara MD | | | 2008 - | Encounter | MED CTR MED ONC | [address] [facility] | | | | | [address] | [place] | | | 02/06/ | | [place] [address] | [address] | | | 2008 | | [phone] | | | +--------+ + + + [...] | | | | | | [place] [address] | | | | | | [phone] | | | | | | | | +--------+ + + + + documented as of this encounter Visit Diagnoses Not on filedocumented in this encounter"
--- OUTSIDE RECORDS SUMMARY | ~2020-06-07 | XMS | Encounter Summary ---
Demographics + + + | Address | [address] | | | [place] [address] | + + + | Home Phone [...] Providers + +------+ + | Care Creative Consultant Name | Role | Phone | [...] [place], [place] | | | | | [place] | | [address] Phone: | | | | | CYSTO/URETER | | [phone] | | | | | O | | Fax: | | | | | W/LITHOTRIPS | | [phone] | | | | | Y &INDWELL [...] + + | 04/13/ | Hospital | [facility] | Matthew Uriarte | Preoperative | | 2019 | Encounter | MED CTR OR INTRA OP | Dahl, MD [address] | clearance (Primary | | | | [address] | [address] [place], [place] | Dx); Left ureteral | | | | [place] | [address] | calculus; Kidney | | | | [address] | | stones | | | | [phone] | | | +--------+ + + + [...] + + + +---------+ + + | [place]-3 Fatty | CAPS, one capsule by | [...] | | | | | | | [place] coronary | | | | | | | artery of [place] | | | | | | | [...] signed by: Matthew Uriarte MD, 04/13/2019 8:09 [facility] Jaron Galaviz MD - 04/07/2019 9:45 AM [...] CV LHC; Surgeon: Daljit Singletary MD; Location: [facility] CV LAB CARDIAC CATHERIZATION N/A 01/25/2019 Procedure: CV Cor Angio; Surgeon: Daljit Singletary MD; Location: [facility] CV LAB COLONOSCOPY N/A 12/24/2017 Procedure: COLONOSCOPY; Surgeon: Emmanuel Daniel MD; Location: [facility] MEDICAL PROCEDURE UNIT COLONOSCOPY N/A 01/05/2019 Procedure: COLONOSCOPY; Surgeon: Emmanuel Daniel MD; Location: [facility] MEDICAL PROCEDURE UNIT EGD 12/24/2017 HARDWARE REMOVAL KNEE ARTHROSCOPY Bilateral KNEE SURGERY 2003 meniscus-right LAMINECTOMY 1991 L3-4 LUMBAR DISCECTOMY 1991 L3-4 LUMBAR FUSION 01/2011 6 spine fusions NECK SURGERY NECK SURGERY 08/10/2012 Fusion. [place], OR PACEMAKER PLACEMENT 06/14/2009 Medtronic ROTATOR CUFF REPAIR Bilateral 03/22/2013 SINUS SURGERY 1998 SPINAL FUSION STOMACH SURGERY UPPER GASTROINTESTINAL ENDOSCOPY N/A 12/24/2017 Procedure: EGD; Surgeon: Emmanuel Daniel MD; Location: [facility] MEDICAL PROCEDURE UNIT UPPER GASTROINTESTINAL ENDOSCOPY N/A 01/05/2019 Procedure: EGD; Surgeon: Emmanuel Daniel MD; Location: [facility] MEDICAL PROCEDURE UNIT VASECTOMY Family History: Family [...] None Living situation: lives at home with Anderia in own home Allergies Allergen Reactions Clarithromycin [...] EVERY DAY, Disp: 90 tablet, Rfl: 3 [facility] [...] 911, Disp: 100 ta blet, Rfl: 3 [place]-3 Fatty Acids (SALMON OIL-1000 PO), CAPS, one capsule by mouth daily twice daily , Disp: , Rfl: ondansetron (ZOFRAN ODT) 4 mg disintegrating tablet, Take 4 mg by mouth., Disp: , Rfl: ONE TOUCH DELICA LANCETS [facility], Check glucose as needed for hypoglycemia, Disp: [...] have not thoroughly proofread this note, and airport operations coordinator errors are very likely to occur. CC: Kirk French MD documented in this encounter Miscellaneous Notes Op Note - Matthew Uriarte MD - 04/13/2019 1:03 PM PDTOperative Note Pt. Name/Age/: Moe Sanchez 59 y.o. 1960 Med. Record Number: [id number] Date of admission: 04/13/2019 Date of Operation/Procedure: 04/13/2019 Preoperative Diagnosis: Kidney stone Postoperative Diagnosis: same Surgeon: Matthew Uriarte MD Hand Former(s): none Anesthesia Provider(s): Anesthesiologist: Jay Benjamin MD [...] leave strings on the stent. A 6 [place] variable length stent was then placed over [...] Electronically Signed by: Matthew Uriarte, 04/13/2019 13:04 [facility] documented in this encounter Plan of Treatment [...] W | | | | | | [place], | | | | | | [place] [address] | | | | | | [phone] | | | | | | | [...] [facility] | | | | | | at:[phone]. | | | | + + + [...] [address], | REFERENCE LAB | | [place], [place] [id number] Compliance Administrator: Yeny Rios MD, Phone: | ARSH CASTANON | | [phone] | | + + + + + + + + | Performing | Address | City/State/Zipcode | Phone Number | | Organization | | | | + + + + + | REFERENCE LAB | [address] | [place], [place] | [phone] | | [facility] | [facility] | [address] | | + + + + + [...] [address] | [place] | [phone] | | [facility] | | [address] | | | - LABORATORY | | [...] [address] | [place] | [phone] | | [facility] | | [address] | | | - LABORATORY | | [...] [address] | [place] | [phone] | | [facility] | | [address] | | | - LABORATORY | | [...] + | [facility] | [address] | [place] | [phone] | | [facility] | | [address] | | | - LABORATORY | | [...] mL/min/1.73m2 | [facility] | | | [facility] | RATE,ESTIMATED | | MEDICAL | | | | mL/min/1.50t6Luyh than | | CENTER - | | [...] [address] | [place] | [phone] | | [facility] | | [address] | | | - LABORATORY | | [...] Wheezing, | | | Starting [facility] 04/13/19 at 0917, | | | [...] | 500 mg 500 mg, Oral, ONCE, Talai | | 19 7:35 | | | [...] | | | | | | | rnikau-ejk-daund use of at least | | | [...] | | | | PRN, Nausea, Starting [facility] 04/13/19 | | AM PDT | [...]
--- OUTSIDE RECORDS SUMMARY | ~2020-06-07 | XMS | Encounter Summary ---
Demographics + + + | Address | [address] | | | [place] [address] | + + + | Home Phone [...] Providers + +------+ + | Care Hadoop Admin Name | Role | Phone | + +------+ + | Kirk French MD | PCP | | + +------+ + Encounter Details +--------+---------+ + + + | Date | Type | Department | Care Team | Description | +--------+---------+ + + + | 09/26/ | Office | [facility] | Kirk French | Weight loss (Primary | | 2018 | Visit | GERALDINE Guidry MD [address] | Dx); Bipolar | | | | [facility] [address] | affective disorder, | | | | [address] | [place] [address] | remission status | | | | [place], [place] | [phone] | unspecified (HCC); | | | | [address] | | Mixed anxiety | | | | [phone] | | depressive disorder; | | | [...] wasn't treated. 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; Sulmaqtronic Peptic ulcer disease Premature ventricular contraction Preventative [...] CV LHC; Surgeon: Daljit Singletary MD; Location: [facility] CV LAB CARDIAC CATHERIZATION N/A 01/25/2019 Procedure: CV Cor Angio; Surgeon: Daljit Singletary MD; Location: [facility] CV LAB COLONOSCOPY N/A 12/24/2017 Procedure: COLONOSCOPY; Surgeon: Emmanuel Daniel MD; Location: [facility] MEDICAL PROCEDURE UNIT COLONOSCOPY N/A 01/05/2019 Procedure: COLONOSCOPY; Surgeon: Emmanuel Daniel MD; Location: [facility] MEDICAL PROCEDURE UNIT EGD 12/24/2017 HARDWARE [...] Procedure: EGD; Surgeon: Emmanuel Daniel MD; Location: [facility] MEDICAL PROCEDURE UNIT UPPER GASTROINTESTINAL ENDOSCOPY N/A 01/05/2019 Procedure: EGD; Surgeon: Emmanuel Daniel MD; Location: [facility] MEDICAL PROCEDURE UNIT URETEROSCOPY Left 04/13/2019 Procedure: Cystoscopy, Left ureteroscopy with laser lithotripsy, Left ureteral stent place ment; Surgeon: Matthew Uriarte MD; Location: [facility] MAIN OR VASECTOMY Social History Socioeconomic [...] NEEDED FOR CHEST PAIN 250 tablet 0 [place]-3 Fatty Acids (SALMON OIL-1000 PO) CAPS, one capsule by mouth daily twice daily ondansetron (ZOFRAN ODT) 4 mg disintegrating tablet Take 4 mg by mouth every 8 hours as needed for Nausea. ONE TOUCH DELICA LANCETS [facility] Check glucose as needed for hypoglycemia 100 [...] PLT 169 06/02/2019 No results found for: NBMQIROD88 No results found for: FOLATE No results [...] Co multiple ER visits Going again to [facility] tomorrow Already followed by [facility] in [...] | | | | | | [place] [address] | | | | | | [phone] | | | | | | | [...]
--- OUTSIDE RECORDS SUMMARY | ~2020-06-07 | XMS | Encounter Summary ---
Demographics + + + | Address | [address] | | | [place] [address] | + + + | Home Phone [...] Providers + +------+ + | Care Defensive Line Coach Name | Role | Phone | [...] + + | 10/23/ | Office | [facility] | [place]via, | CAD (coronary artery | | 2013 | Visit | CARDIOLOGY [address] | [place] [address] | disease) (Primary | | | | [place], | [place], | Dx); Other chest | | | | [place] [address] | [place] [address] | pain; Chest pain; | | | | [phone] | [phone] | Coronary artery | | | | [...] Sanchez Date: October 23, 2014 : 1960 Film And Video Graphics Designer: Kialey Pruitt RN Device Stock Associate: Medtronic Sense (mV) Impedance (?) Capture (V) Capture (ms) A Lead 2.80-4.00 407 1.500 0.09 RV Lead 22.40-31.36 519 2.000 0.09 LV Lead Battery Impedance (?): 658 Battery Voltage (V): 2.79 AK Interval (ms): 155 AR Interval (ms): 240 VA Conduction: Mode Switch Events: 1 % of time: <0.1 -UTILITY AGENT: <0.1% AP-UTILITY AGENT: <0.1% -VS: 13.8% AP-VS: 86.1% UTILITY AGENT: Magnetic Rate: 85 LINDA: 65 LEAH: [...] needed for Chest pain. 25 tablet 12 [place]-3 Fatty Acids (SALMON OIL-1000 PO) CAPS, [...] cannot completely be ruled out. D. [facility] 12/25/13, shows non critical coronary [...] He is i n class I-II of [place] [employer] functional class. There are no [...] to go back in 3 days to [place] for an attempt of ablation under general [...] dizziness. He is in class I-II of [place] [employer] functional class. There are n [...] this chart may have been created with Gazelle voice recognition software. Occasi onal wrong-word or [...] Sanchez Date: October 23, 2014 : 1960 Film And Video Graphics Designer: Kailey Pruitt RN Device Stock Associate: Medtronic Sense (mV) Impedance (?) Capture (V) Capture (ms) A Lead 2.80-4.00 407 1.500 0.09 RV Lead 22.40-31.36 519 2.000 0.09 LV Lead Battery Impedance (?): 658 Battery Voltage (V): 2.79 AK Interval (ms): 155 AR Interval (ms): 240 VA Conduction: Mode Switch Events: 1 % of time: <0.1 -UTILITY AGENT: <0.1% AP-UTILITY AGENT: <0.1% -VS: 13.8% AP-VS: 86.1% UTILITY AGENT: Magnetic Rate: 85 LINDA: 65 LEAH: [...] Kailey Pruitt RN 10/23/2014 15:22 NDA[facility]ON SCAN [facility] - 12/2013 12:00 AM PSTAssociated Order(s): ECG [...] W | | | | | | [place], | | | | | | [place] [address] | | | | | | [phone] | | | | | | | [...] 23, 2014 : | | | 1960 Film And Video Graphics Designer: Kailey Pruitt RN Device Stock Associate: | | | Medtronic Sense (mV) Impedance [...] Switch Events: 1 % of time: <0.1 -UTILITY AGENT: <0.1% AP-UTILITY AGENT: <0.1% -VS: | | | 13.8% AP-VS: 86.1% UTILITY AGENT: Magnetic Rate: 85 LINDA: 65 LEAH: [...] | | Date: October 23, 2014DOB: 1960 Film And Video Graphics Designer: Ly Saulvice Stock Associate: | | Medtronic Sense (mV) Impedance (?) Capture (V) Capture (ms) A Lead 2.80-4.00 407 1.500 | | 0.09 RV Lead 22.40-31.36 519 2.000 0.09 LV Lead Battery Impedance (?): 658 Battery | | Voltage (V): 2.79 AK Interval (ms): 155 AR Interval (ms): 240 VA Conduction: Mode | | Switch Events: 1 % of time: <0.1 -UTILITY AGENT: <0.1% AP-UTILITY AGENT: <0.1% -VS: 13.8% AP-VS: 86.1% UTILITY AGENT: | | Magnetic Rate: 85 LINDA: 65 [...] of unspecified type | | of vessel, washoe or graft | + + | Other chest pain | + + | Chest pain Chest pain, unspecified | + + | Coronary artery disease Coronary atherosclerosis of unspecified type of vessel, | | washoe or graft | + + | Pacemaker [...]
--- OUTSIDE RECORDS SUMMARY | ~2020-06-07 | XMS | Encounter Summary ---
Demographics + + + | Address | [address] | | | [place] [address] | + + + | Home Phone [...] Providers + +------+ + | Care Hydraulic Governor Assembler Name | Role | Phone | [...] + | 11/05/ | Telephone | [facility] | Daljit Singletary, | Chest Pain | | 2016 | | CARDIOLOGY [address] | [address] [place] | | | | | [place], | [place], | | | | | [place] [address] | [place] [address] | | | | | [phone] | [phone] | | | | | | | [...] he was in the parking lot of [facility] an d wants to know if he can just come in to the office. Advised him if he has been having unre lieved chest pain that long he needs to go inside to the ED for help as it could be serious and he could have a heart attack before he could come to [place]. (Driving conditions th is morning are also not good to heavy snow in our region last night.) Patient agreed to go i [facility] ED to be seen. Electronically signed by: [...] | | | | | | [place] [address] | | | | | | [phone] | | | | | | | | +--------+ + + + + documented as of this encounter Visit Diagnoses Not on filedocumented in this encounter"
--- OUTSIDE RECORDS SUMMARY | ~2020-06-07 | XMS | Encounter Summary ---
Demographics + + + | Address | [address] | | | [place] [address] | + + + | Home Phone [...] Providers + +------+ + | Care Timber Killer Name | Role | Phone | + +------+ + PCP | Unavailable | + +------+ + Encounter Details +--------+ + + + + | Date | Type | Department | Care Team | Description | +--------+ + + + + | 02/21/ | [facility] | [facility] | Cristy Braun | | | 2008 | Encounter | MED CTR EMERGENCY | MD Ronald [address] | | | | | CENTER [address] | [facility], | | | | | [place] | [place] [address] | | | | | [address] | [phone] | | | | | [phone] | | | +--------+ + + + [...] [place], | | | | | | [place] [address] | | | | | | [phone] | | | | | | | | +--------+ + + + + documented as of this encounter Visit Diagnoses Not on filedocumented in this encounter"
--- OUTSIDE RECORDS SUMMARY | ~2020-06-07 | XMS | Encounter Summary ---
Demographics + + + | Address | [address] [place] [address] [address] | | | [place] [address] | + + + | Home Phone [...] [place] | | | | | [address] | | + + + + + Care Team Providers + +------+ + | Care Washer Carcass Name | Role | Phone | + [...]
--- OUTSIDE RECORDS SUMMARY | ~2020-06-07 | XMS | Encounter Summary ---
Demographics + + + | Address | [address] | | | [place] [address] | + + + | Home Phone [...] Phone | + + +---------+ + | Nadnievarsha Kingsley | ECON | Unknown | | + + +---------+ + Care Team Providers + +------+ + | Care Color Sprayer Name | Role | Phone | [...] + + | 09/09/ | Office | [facility] | Michael Amanda, | Hyperlipidemia; | | 2011 | Visit | [facility] [place] | DO [address] | Hypertension; | | | | [address] | [place] | Chronic pain | | | | [place] | [address] | syndrome; Neck pain, | | | | [address] | | chronic | | | | [phone] | | | +--------+---------+ + + + [...] damage history No ASHD (either angina; prior TX; prior CABG) No cardiac end organ damage [...] W | | | | | | [place], | | | | | | [place] [address] | | | | | | [phone] | | | | | | | [...]
--- OUTSIDE RECORDS SUMMARY | ~2020-06-07 | XMS | Encounter Summary ---
Demographics + + + | Address | [address] | | | [place] [address] | + + + | Home Phone [...] Providers + +------+ + | Care Guest Services Lead Name | Role | Phone | [...] | | | | CENTER [address] | [place], [place] | (Primary Dx) | | | | [place], [place] | [address] | | | | | [address] | | | | | | [phone] | | | +--------+ + + + [...] known pacemaker that had a recent in [employer] that was working. PAST MEDICAL [facility] SURGICAL [...] take 1 tablet by mouth every evening [facility] (OSTEO BI-FLEX/5-LOXIN ADVANCED PO) Take [...] [place] Check glucose as needed for hypoglycemia PRAVASTATIN [...] like he was ran over by a Canary Calendar i. Pt took [address] over from [place].Electronically signed by MONROE Olivo at 03/2017 12:20 [...] | | | | | | [place] [address] | | | | | | [phone] | | | | | | | [...] 12 | 7 - 18 mg/dL | [facility] | | | | | | [facility] | | | | | | MEDICAL | | | | | | CENTER - | | | | | | LABORATORY | | + + + + + + | Creatinine | 0.84 | 0.60 - 1.30 | [facility] | | | | | mg/dL | [facility] | | | | | | MEDICAL | | | | | | CENTER - | | | | | | LABORATORY | | + + + + + + | eGFR if not | >60Comment: GLOMERULAR | >=60 | [facility] | | | | FILTRATION | mL/min/1.73m2 | [address] [facility] | | | [place]I | RATE,ESTIMATED | | MEDICAL | | | | mL/min/1.09y9Uzow than | | CENTER - | | [...] + | [facility] | [address] | [place] | [phone] | | [facility] | | [address] | | | - LABORATORY | | [...] Brown Results In - 01/24/2017 1:16 PM [facility]: 01/24/2017 12:28 PM | [...] | | | | ANGELA MARADIAGA MD ([id number]) | | | | | | on [...] | | | | | | [employer] | | | | | [...] [address] | [place] | [phone] | | [facility] | | [address] | | | - LABORATORY | | [...] [address] | [place] | [phone] | | [facility] | | [address] | | | - LABORATORY | | [...]
--- OUTSIDE RECORDS SUMMARY | ~2020-06-07 | XMS | Encounter Summary ---
Demographics + + + | Address | [address] | | | [place] [address] | + + + | Home Phone [...] Team Providers + +------+ + | Care Prison Keeper Name | Role | Phone | [...] | (Fax) | | | | | [address] | | | | | | [phone] | | | +--------+ + + + [...] | | | | | | [place] [address] | | | | | | [phone] | | | | | | | | +--------+ + + + + documented as of this encounter Visit Diagnoses Not on filedocumented in this encounter"
--- OUTSIDE RECORDS SUMMARY | ~2020-06-07 | XMS | Encounter Summary ---
Demographics + + + | Address | [address] | | | [place] [address] | + + + | Home Phone [...] Providers + +------+ + | Care Asset Protection Assistant Name | Role | Phone | [...] | | | Diarrhea/ | [address] | [place], [place] | | | | | Rectal | [place] | [address] | | | | | Bleeding | [address] | Phone: | | | | | from [facility] | Phone: | [phone] | | | | | referral. | [phone] | Fax: | | | | | | Fax: | [phone] | | | | | | [phone] | | + + + + + [...] + + | 01/21/ | Telephone | [facility] | Kirk French | Other (wanted to let | | 2019 | | [facility] | MD Brea [address] | us know the St. | | | | [facility] [address] | Apolonia'gena cancelled his | | | | [address] | [place] [address] | appointment for a | | | | [place], [place] | [phone] | colonoscopy) | | | | [address] | | | | | | [phone] | | | +--------+ + + + [...] Patient state he received a call from [facility] last to wilmer weiner his appointment for colonoscopy due rodríguez virus outbreak. Patient is wanting to see i f its possible for him to get a colonoscopy at our [facility]. Call back at [phone] Sia Vasquez Ext [phone] elephone Encounter - Hailey Girard, Legal Services Manager - 01/22/2020 10:59 AM PSTFYI. Electronicall y signed by Hailey Padron, Legal Services Manager at 01/22/2020 10:59 AM PSTTelephone Encounter - Vicki Adler - 01/22/2020 8:51 AM PSTFred, is calling regarding Other (pawan patel to let us know the [facility] cancelled his appointment for a colonoscopy) and would like a call back. Additional Call Details: He wanted to let us know and also wanted to let us know that [facility] is going to get a hold of us for him to swallow the camera her at [facility]. If this is a symptom based call, was patient offered triage? Not Applicable If this is a symptom based call and you were unable to immediately transfer the call to a lorraine bellamy district or district office director was caller made aware that if at [...] | | | | | [place], | | | | | | [place] [address] | | | | | | [phone] | | | | | | | [...]
--- OUTSIDE RECORDS SUMMARY | ~2020-06-07 | XMS | Encounter Summary ---
Demographics + + + | Address | [address] | | | [place] [address] | + + + | Home Phone [...] Team Providers + +------+ + | Care Drawing Machine Operator Name | Role | Phone [...] 2014 | | CARDIOLOGY [address] | ENROLLMENT ADVISOR [address] | | | | | [place], | [place], [place] | | | | | [place] [address] | [address] | | | | | [phone] | | | +--------+ + + + [...] | | | | | | [place] [address] | | | | | | [phone] | | | | | | | | +--------+ + + + + documented as of this encounter Visit Diagnoses Not on filedocumented in this encounter"
--- OUTSIDE RECORDS SUMMARY | ~2020-06-07 | XMS | Encounter Summary ---
Demographics + + + | Address | [address] | | | [place] [address] | + + + | Home Phone [...] Providers + +------+ + | Care Roll Inspector Name | Role | Phone [...] | | | | [place] | [phone] | | | | | [address] | | | | | | [phone] | | | +--------+ + + + [...] + + + +---------+ + + | [place]-3 Fatty | CAPS, one capsule by | [...] | | | | | | [place] [address] | | | | | | [phone] | | | | | | | [...]
--- OUTSIDE RECORDS SUMMARY | ~2020-06-07 | XMS | Encounter Summary ---
Demographics + + + | Address | [address] | | | [place] [address] | + + + | Home Phone [...] Team Providers + +------+ + | Care Bearing Machine Operator Name | Role | Phone [...] [address] | | | | | | [place], [place] | (Fax) | | | | | [address] | | | | | | [phone] | | | +--------+ + + + [...] | | | | | | [place] [address] | | | | | | [phone] | | | | | | | | +--------+ + + + + documented as of this encounter Visit Diagnoses Not on filedocumented in this encounter"
--- OUTSIDE RECORDS SUMMARY | ~2020-06-07 | XMS | Encounter Summary ---
Demographics + + + | Address | [address] | | | [place] [address] | + + + | Home Phone [...] Providers + +------+ + | Care Industrial Tractor Driver Name | Role | Phone | + +------+ + PCP | Unavailable | + +------+ + Encounter Details +--------+ + + + + | Date | Type | Department | Care Team | Description | +--------+ + + + + | 01/15/ | [facility] | [facility] | Emmanuel Daniel MD | | | 1994 | Encounter | MED CTR GENERIC OP | [address] | | | | | CONV DEPT [address] | [address] [place] [address] | | | | | [place], | [address] | | | | | [place] [address] | | | | | | [phone] | | | +--------+ + + + [...] | | | | | | [place] [address] | | | | | | [phone] | | | | | | | | +--------+ + + + + documented as of this encounter Visit Diagnoses Not on filedocumented in this encounter"
--- OUTSIDE RECORDS SUMMARY | ~2020-06-07 | XMS | Encounter Summary ---
Demographics + + + | Address | [address] | | | [place] [address] | + + + | Home Phone [...] Providers + +------+ + | Care Airframe And Power Plant Mechanic Name | Role | Phone [...] 2017 | | GASTROENTEROLOGY | [address] [place] | what he can eat | | | | [address] [place] | [address] [place], [place] | today) | | | | [address] [place] | [address] | | | | | [address] | | | | | | [phone] | | | +--------+ + + + [...] | | | | | | [place] [address] | | | | | | [phone] | | | | | | | | +--------+ + + + + documented as of this encounter Visit Diagnoses Not on filedocumented in this encounter"
--- OUTSIDE RECORDS SUMMARY | ~2020-06-07 | XMS | Encounter Summary ---
Demographics + + + | Address | [address] | | | [place] [address] | + + + | Home Phone [...] Team Providers + +------+ + | Care Accountant Auditor Name | Role | Phone | [...] Office | [facility] | Geri Angel, | SINUS BRADYCARDIA | | 2012 | Visit | CARDIOLOGY [address] | TRUCK BRACER [address] [place] | (Primary Dx); | | | | [place], | [place], [place] | Symptomatic PVCs; | | | | [place] [address] | [address] | Hypertension; | | | | [phone] | | Hyperlipidemia | +--------+---------+ + + [...] and/or ref er you to electrophysiology in [place]. 3. Return in 3 months, or sooner [...] he did not followup with electrophysiology in [place], so he has remained on diltiaze [...] L3-4 Lumbar discectomy 1991 L3-4 Appendectomy 2005 [facility] Sinus surgery 1997 Lumbar fusion 01/2011 Pacemaker placement 06/14/09 Neck fusion 08/10/2012 [place] Ablation 04/03/13 Shoulder surgery 03/22/13 Family History Problem Relation Age of Onset Cancer Father colon,prostate Family Status Relation Status Age Mother 62 [place] Father Alive Unknown health Brother Alive Sister [...] by mouth Ken y. 30 tablet 6 [place]-3 Fatty Acids (SALMON OIL-1000 PO) Active CAPS, one capsule by mouth daily twice daily ONE TOUCH DELICA LANCETS MIS Active Check glucose as needed for hypoglycemia [...] Sanchez Date: September 05, 2013 : 1960 Otr Tanker Truck Driver: PARISA Velazquez Device Planning Director: Mister Spextronic Sense (mV) Impedance (?) Capture (V) Capture (ms) A Lead 4-5.6 417 1.5 0.12 RV Lead >31.36 533 2.0 0.09 LV Lead Battery Impedance (?): 452 Battery Voltage (V): 2.79 MO Interval (ms): 162 AR Interval (ms): 245 VA Conduction: Mode Switch Events: 1 % of time: <0.1 -SAMPLE CLERK: <0.1% AP-SAMPLE CLERK: 0.1% -VS: 22.7% AP-VS: 77.1% SAMPLE CLERK: Magnetic Rate: 85 LINDA: 65 LEAH: Current [...] to go back in 3 days to [place] for an attempt of ablation under [...] He is upgraded to class I of [place] [employer] functional class. There are no signs or symptoms of overt congestive heart failure. There is no fluid retention on physical examin ation. Patient continues on diltiazem and metoprolol, and at this point as he had a recurre nt episode last week will continue him on both of these medications. As this is the only [facility] episode he has had he does not [...] he would like to see electrophysiology in [place] rather than [place] as he paulino s family there, if he requires electrophysiology referral again. 3. He will followup in 3 months for an office visit, or sooner with concerns. He will hav e a repeat device interrogation in 6 months or sooner if needed. IGeri ARNP, saw this patient under the direct supervision of Daljit Singletary MD Portions of this report were transcribed using voice recognition software. Every effort wa s made to ensure accuracy; however, inadvertent computerized travel pta errors may be pre sent. Electronically signed [...] W | | | | | | [place], | | | | | | [place] [address] | | | | | | [phone] | | | | | | | [...]
--- OUTSIDE RECORDS SUMMARY | ~2020-06-07 | XMS | Encounter Summary ---
Demographics + + + | Address | [address] | | | [place] [address] | + + + | Home Phone [...] Providers + +------+ + | Care Community Nutrition Educator Name | Role | Phone | [...] + + | 09/13/ | Office | [facility] | Bahman Gant MD | Other dysphagia | | 2013 | Visit | OTOLARYNGOLOGY [address] | [address] | (Primary Dx) | | | | [address] | [address] [place] | | | | | [place], [place] | [place] [address] | | | | | [address] | [phone] | | | | | [phone] | | | +--------+---------+ + + + [...] MD - 09/13/2013 5:46 PM PDTSee dictation #[id number] signed by Joseph Gant MD at 09/13/2013 5:52 PM Bahman Lamb MD - 09/13/2013 12:00 AM PDT ENT AND AUDIOLOGY [address] [place] [address] FAX: [phone] OFFICE VISIT The patient gives a history [...] Bahman Gant MD / MS JOB #: [id number] signed by Bahman Gant MD at 09/14/2013 [...] W | | | | | | [place], | | | | | | [place] [address] | | | | | | [phone] | | | | | | | [...]
--- OUTSIDE RECORDS SUMMARY | ~2020-06-07 | XMS | Encounter Summary ---
Demographics + + + | Address | [address] | | | [place] [address] | + + + | Home Phone [...] Providers + +------+ + | Care Mine Expert Name | Role | Phone | [...] + + | 01/12/ | Telephone | [facility] | Silvia, | Other (plan of care) | | 2019 | | CARDIOLOGY [address] | Janeen CURRICULUM CONSULTANT [address] | | | | | [place], | [place], | | | | | [place] [address] | [place] [address] | | | | | [phone] | [phone] | | | | | | | [...] Valentine RN on 01/16/19 at 11:26 [facility]phone [facility] Darlene Tirado RN - [...] Tirado RN on 01/13/19 at 8:44 elephone [facility] - 01/12/2019 5:25 PM [...] | | | | | | [place] [address] | | | | | | [phone] | | | | | | | | +--------+ + + + + documented as of this encounter Visit Diagnoses Not on filedocumented in this encounter"
--- OUTSIDE RECORDS SUMMARY | ~2020-06-07 | XMS | Encounter Summary ---
Demographics + + + | Address | [address] | | | [place] [address] | + + + | Home Phone [...] + +------+ + | Care Director Of Sustainable Design Name | Role | Phone | [...] + | 09/12/ | Telephone | [facility] | Stanley Geri, | Other (records | | 2012 | | CARDIOLOGY [address] | DATAPOWER DEVELOPER [address] | faxed) | | | | [place], | [place], [place] | | | | | [place] [address] | [address] | | | | | [phone] | | | +--------+ + + + [...] | | | | | | [place] [address] | | | | | | [phone] | | | | | | | | +--------+ + + + + documented as of this encounter Visit Diagnoses Not on filedocumented in this encounter"
--- OUTSIDE RECORDS SUMMARY | ~2020-06-07 | XMS | Encounter Summary ---
Demographics + + + | Address | [address] | | | [place] [address] | + + + | Home Phone [...] Providers + +------+ + | Care Supervisor Mechanic Boilermaking Name | Role | Phone | + +------+ + PCP | Unavailable | + +------+ + Encounter Details +--------+ + + + + | Date | Type | Department | Care Team | Description | +--------+ + + + + | 06/14/ | [facility] | [facility] | Daljit Singletary, | | | 2008 - | Encounter | MED CTR MP INTRA OP | MD [address] | | | | | [address] | [place], | | | 06/15/ | | [place] | [place] [address] | | | 2008 | | [address] | [phone] | | | | | [phone] | | | +--------+ + + + [...] | | | | | | [place] [address] | | | | | | [phone] | | | | | | | | +--------+ + + + + documented as of this encounter Visit Diagnoses Not on filedocumented in this encounter"
--- OUTSIDE RECORDS SUMMARY | ~2020-06-07 | XMS | Encounter Summary ---
Demographics + + + | Address | [address] | | | [place] [address] | + + + | Home Phone [...] + +------+ + | Care Oil Well Gun Perforator Operator Name | Role | Phone | + +------+ + PCP | Unavailable | + +------+ + Encounter Details +--------+ + + + + | Date | Type | Department | Care Team | Description | +--------+ + + + + | 01/20/ | [facility] | [facility] | Geri Angel, | | | 2009 | Encounter | MED CTR GENERIC OP | REHAB THERAPY MANAGER [address] | | | | | CONV DEPT [address] | [place] | | | | | [place], | [address] | | | | | [place] [address] | | | | | | [phone] | | | +--------+ + + + [...] | | | | | | [place] [address] | | | | | | [phone] | | | | | | | | +--------+ + + + + documented as of this encounter Visit Diagnoses Not on filedocumented in this encounter"
--- OUTSIDE RECORDS SUMMARY | ~2020-06-07 | XMS | Encounter Summary ---
Demographics + + + | Address | [address] | | | [place] [address] | + + + | Home Phone [...] Providers + +------+ + | Care Breaker Hand Name | Role | Phone | [...] + | 03/24/ | Telephone | [facility] | [place], | Other (chest pain) | | 2018 | | CARDIOLOGY [address] | Janeen POULTRY INSPECTOR [address] | | | | | [place], | [place], | | | | | [place] [address] | [place] [address] | | | | | [phone] | [phone] | | | | | | | [...] | | | | | | [place] [address] | | | | | | [phone] | | | | | | | | +--------+ + + + + documented as of this encounter Visit Diagnoses Not on filedocumented in this encounter"
--- OUTSIDE RECORDS SUMMARY | ~2020-06-07 | XMS | Encounter Summary ---
Demographics + + + | Address | [address] | | | [place] [address] | + + + | Home Phone [...] + +------+ + | Care Sheet Metal Foreman Name | Role | Phone | + +------+ + PCP | Unavailable | + +------+ + Encounter Details +--------+ + + + + | Date | Type | Department | Care Team | Description | +--------+ + + + + | 10/26/ | Hospital | [facility] | | | | 1994 | Encounter | MED CTR EMERGENCY | | | | | | [address] | | | | | | [place] | | | | | | [address] | | | | | | [phone] | | | +--------+ + + + [...] | | | | | | [place] [address] | | | | | | [phone] | | | | | | | | +--------+ + + + + documented as of this encounter Visit Diagnoses Not on filedocumented in this encounter"
--- OUTSIDE RECORDS SUMMARY | ~2020-06-07 | XMS | Encounter Summary ---
Demographics + + + | Address | [address] | | | [place] [address] | + + + | Home Phone [...] Providers + +------+ + | Care Client Service And Consulting Manager Name | Role | Phone | [...] 2019 | | GASTROENTEROLOGY | [address] [place] | | | | | [address] [place] | [address] [place], [place] | | | | | [address] [place], [place] | [address] | | | | | [address] | | | | | | [phone] | | | +--------+ + + + [...] Dr. Daniel / Darryn Call back number: [phone] documented in this encou nter Plan of [...] | | | | | | [place] [address] | | | | | | [phone] | | | | | | | | +--------+ + + + + documented as of this encounter Visit Diagnoses Not on filedocumented in this encounter"
--- OUTSIDE RECORDS SUMMARY | ~2020-06-07 | XMS | Encounter Summary ---
Demographics + + + | Address | [address] | | | [place] [address] | + + + | Home Phone [...] Providers + +------+ + | Care Engine Monitor Name | Role | Phone | [...] | | | | [place] | [phone] | | | | | [address] | | | | | | [phone] | | | +--------+ + + + [...] + + + +---------+ + + | [place]-3 Fatty | CAPS, one capsule by | [...] | | | | | | | #[id number], exp 07/2016 | | | | | [...] W | | | | | | [place], | | | | | | [place] [address] | | | | | | [phone] | | | | | | | [...]
--- OUTSIDE RECORDS SUMMARY | ~2020-06-07 | XMS | Encounter Summary ---
Demographics + + + | Address | [address] | | | [place] [address] | + + + | Home Phone [...] Providers + +------+ + | Care Transportation Security Officer Name | Role | Phone [...] [address] | | | | | | [place], [place] | (Fax) | | | | | [address] | | | | | | [phone] | | | +--------+ + + + [...] | | | | | | [place] [address] | | | | | | [phone] | | | | | | | | +--------+ + + + + documented as of this encounter Visit Diagnoses Not on filedocumented in this encounter"
--- OUTSIDE RECORDS SUMMARY | ~2020-06-07 | XMS | Encounter Summary ---
Demographics + + + | Address | [address] | | | [place] [address] | + + + | Home Phone [...] + +------+ + | Care Manager Of Learning Name | Role | Phone [...] + + | 06/04/ | Hospital | [facility] | Sariah, | Cervical spinal | | 2016 | Encounter | MED CTR XRAY [address] | Marietta Mason, AUTO WHEEL ALIGNMENT SPECIALIST [address] | stenosis | | | | [place] | [address] | | | | | [place] [address] | [place] [address] | | | | | [phone] | [phone] | | | | | | | [...] + + + +---------+ + + | [place]-3 Fatty | CAPS, one capsule by | [...] | | | | | | [place], | | | | | | [place] [address] | | | | | | [phone] | | | | | | | [...]
--- OUTSIDE RECORDS SUMMARY | ~2020-06-07 | XMS | Encounter Summary ---
Demographics + + + | Address | [address] | | | [place] [address] | + + + | Home Phone [...] Providers + +------+ + | Care Band Edger Name | Role | Phone | [...] | Aneurysmal | Silvia, | [address] | | | | | dilatation | PARISA Solis | [place], | | | | | ([facility]) | [address] | [place] | | | | | Procedures | [place] | [address] | | | | | ECHO | [place], | Phone: | | | | | Complete | [place] | [phone] | | | | | | [address] | Fax: | | | | | | Phone: | [phone] | | | | | | [phone] | | | | | | | Fax: | | | | | | | [phone] | | +--------+--------+ + + + + [...] | | | | | Aneurysmal | [place], | [address] | | | | | dilatation | PARISA Solis | [place], | | | | | ([facility]) | [address] | [place] | | | | | Procedures | [place] | [address] | | | | | ECHO | [place], | Phone: | | | | | Complete | [place] | [phone] | | | | | | [address] | Fax: | | | | | | Phone: | [phone] | | | | | | [phone] | | | | | | | Fax: | | | | | | | [phone] | | +--------+--------+ + + + + Encounter Details +--------+ + + + + | Date | Type | Department | Care Team | Description | +--------+ + + + + | 11/16/ | Hospital | [facility] | Silvia, | Aneurysmal | | 2017 | Encounter | MED CTR ECHO [address] | Janeen, ROUTE CARRIER [address] | dilatation (HCC) | | | | [place] | [place], | | | | | [place] [address] | [place] [address] | | | | | [phone] | [phone] | | | | | | | [...] + + + +---------+ + + | [place]-3 Fatty | CAPS, one capsule by | [...] | | | | | | [place] [address] | | | | | | [phone] | | | | | | | [...] Patient Name VICTOR HUGO | | | [place] Room Number SARAH Patient | | | [id number] Date of Study 11/16/2017 Number | | | Visit Number [id number] | | | Referring Physician GURJIT TROY Number | | | ELIZABETHANGELIA SOLIS Date | | | of 1960 Instructional Coordinator ROMAINE | | | MARISSA TIPTON Age 57 year(s) Interpreting | | | GURJIT TROY | | | Motor And Generator Brush Cutter SYDNI CAGLE, | | | | | | Gender Male Nurse | | | Stress Glass Melt Operator Procedure Type of | | | [...] | | | EF | | | Inzhczjsa27% Left Ventricle Diastolic Dimension: 5.12 cm | [...] Volume: 46.33 ml | | | EF Exztjxmsy69% | | | | | | Left [...] BARRY Room Number SARAH | | Patient [id number] Date of Study 11/16/2017 Number Visit Number | | [id number] Referring Physician GURJIT TROY | | Number NORMA SOLIS Date of | | 1960 Instructional Coordinator ROMAINE TIPTON RDCS Age 57 year(s) | | Interpreting GURJIT TROY Motor And Generator Brush Cutter | | SYDNI CAGLE MD | | [...] LA Volume: 46.33 ml | | EF Zjpakemds84% Left Ventricle Diastolic Dimension: 5.12 cm Systolic [...] LA Volume: 46.33 ml | | EF Yrvpvutgd52% | | | | Left Ventricle | [...]
--- OUTSIDE RECORDS SUMMARY | ~2020-06-07 | XMS | Encounter Summary ---
Demographics + + + | Address | [address] | | | [place] [address] | + + + | Home Phone [...] Team Providers + +------+ + | Care Gameplay Engineer Name | Role | Phone | [...] | | | | exertion | | [place] | | | | | Chest pain | | [place], [place] | | | | | on exertion | | [address] | | | | | | | Phone: | | | | | | | [phone] | | | | | | | Fax: | | | | | | | [phone] | +--------+--------+ + + + + Encounter Details +--------+ + + + + | Date | Type | Department | Care Team | Description | +--------+ + + + + | 04/27/ | Emergency | [facility] | Martell Hart | Chest pain on | | 2014 - | | [facility] | Sanjay Palacios MD | exertion (Primary | | | | [address] [place] | [address] | Dx); Dyspnea on | | 03/20/ | | [place] [address] | [place] | exertion; Essential | | 2014 | | [phone] | [address] | hypertension; Acute | | | | | | chest pain; | | | | | Parth Kraft, | Dizziness, | | | | | [address] | nonspecific; Mixed | | | | | [place] | anxiety depressive | | | | | [address] | disorder; PUD | | | | | [phone] | (peptic ulcer | | | | [...] be different f rom the original. [facility] DISCHARGE SUMMARY Pt. Name/Age/: Moe Sanchez [...] mg by mouth as needed. aka: BENADRYL Rowan Lyman 550 MG Caps Take by mouth. [...] 911 aka: NITROSTAT ONE TOUCH DELICA LANCETS [facility] [place] Check glucose as needed [...] Daily. to reduce urinary frequency - Lot #[id number], exp 07/2016 aka: RAPAFLO UNCODED MEDICATION - [...] hospital follow up Contact information: Eva Librado [facility] [address] [facility] [address] Call PARISA Russell. Specialty: Nurse Practitioner Why: As needed Contact information: [address] [place] [address] Condition: Patient being discharged with condition improved. Diet: Heart healthy, avoid acidic drinks and foods, spicy foods, too much coffee. Greater than 30 minutes were spent on discharge and coordination of post-hospital care. Electronically signed by: Thierry Fregoso DO, 03/20/2015 11:22 [facility] Portions of this chart may have been created with Resermap voice recognition software. Occasi onal wrong-word or [...] afford the prescribed medication, you can try ttxc-wdz-ieqgkio acid blockers, such as Pepcid AC, Tagamet, [...] or as directed by your healthcare provider 7026-7137 [employer]. [address] [place] [address], [place] [address]. All righ ts reserved. This information is [...] + + + +---------+ + + | [place]-3 Fatty | CAPS, one capsule by | [...] | | | | | | | #[id number], exp 07/2016 | | | | | [...] - 03/19/2015 10:09 PM PDT . [facility] PROGRESS NOTE Patient: Moe Sanchez : 1960: Age: 55 y.o. MedRec: [id number] PCP: Kirk French Admission date: 03/18/2015 Hospital [...] 1708 03/18/15 1528 TROPONINI <0.01 <0.01 0.01 [facility] ECHOCARDIOGRAM REPORT STUDY DATE: 03/19/2015 PATIENT NAME: [...] changes. No results for input(s): PHART, PO2ART, EIG8XFL, CAX1KNZ, BEART, F9RUJETQ in the last 168 h ours. No results for input(s): SPECSOURCE, PHPOCB, HCO3, TCO2, BEART, BE, SFOO0EUX in the last 16 8 hours. Invalid input(s): TVSKM1BF, GFCU7QG Point of care glucose: No results for [...] Thierry Fregoso DO 03/19/2015 22:09 [facility] Portions of this chart may have been created with Resermap voice recognition software. Occasi onal wrong-word or sound-alike substitutions may have occurred due to the inherent granger itations of voice recognition software. Please read the chart carefully and recognize, using context, where these substitutions have occurred Belén Cho RN - 03/19/2015 11:03 AM [id number] Report given to Marlen morejon who is assuming care. Electronically signed by: Jaja Hay RN 03/19/2015 11:04 ieter Callejas RN - 03/19/2015 10:44 AM PDTAssumed care of patient, received report from MONROE Wilkinson. documented in t his encounter H&P Notes Parth Kraft MD - 03/18/2015 8:45 PM PDTFormatting of this note might be different f rom the original. [facility] HISTORY AND PHYSICAL Pt. Name/Age/: Moe [...] mouth Daily. Qty: 30 tablet, Refills: 6 [facility] [...] call 911 Qty: 25 tablet, Refills: 11 [place]-3 Fatty Acids (SALMON OIL-1000 PO) CAPS, one capsule by mouth daily twice daily ONE TOUCH DELICA LANCETS [facility] Check glucose as needed for hypoglycemia Qty: [...] mouth Daily. to reduce urinary frequency Lot #[id number], exp 07/2016 Qty: 21 capsule, Refills: 0 UNCODED MEDICATION Diagnosis: Obstructive Sleep Apnea ICD-9: 327.23 Length of Need: 99 Months Qty: 1 Device, Refills: 0 Comments: A7033 -Nasal Pillows, L7558-Bkufy Mask, A7030- Full Face Mask, H1049-Cichot Humi difier, H0865-Lhuwaj Tubing, A1423-Xgohvxel, X1269-Xofuvpwsi A7039/C3689-Xihvwkk valACYclovir (VALTREX) 500 mg tablet take 1 [...] signed by: Parth Kraft MD 03/19/2015 4:24 [facility] Portions of this chart may have been created with Resermap voice recognition software. Occasi onal wrong-word or [...] No acute ischemic changes. documented in this [facility] ED Notes Martell Hart MD - 03/18/2015 3:17 PM PDTFormatting of this note might be d ifferent from the original. [facility] Moe Sanchez Emergency Department Encounter Note [address] [place] [address] PCP:Kirk French [phone] eMERGENCY dEPARTMENT eNCOUnter CHIEF [...] TABLET Take 1 tablet by mouth Daily. [facility] NATURAL PRODUCTS (OSTEO BI-FLEX/5-LOXIN ADVANCED PO) Take [...] daily twice daily ONE TOUCH DELICA LANCETS [facility] Check glucose as needed for hypoglycemia PANTOPRAZOLE (PROTONIX) 40 MG TABLET Take 1 tablet by mouth Daily. PRAVASTATIN (PRAVACHOL) 40 MG TABLET take 1 tablet by mouth once daily PROMETHAZINE (PHENERGAN) 25 MG TABLET Take 25 mg by mouth every 8 hours as needed. SILODOSIN (RAPAFLO) 8 MG CAPS Take 1 capsule by mouth Daily. to reduce urinary frequenc y Lot #[id number], exp 07/2016 UNCODED MEDICATION Diagnosis: Obstructive Sleep [...] deficits noted, no facial assymetry noted. 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 EKG Interpretation Interpreted by emergency department physician Rhythm: electric pacemaker. Rate: 73 [place]: normal Ectopy: none Conduction: P wave normal, [...] this chart may have been created with Resermap voice recognition software. Occasi onal wrong-word or [...] Summary & Review . Discharge planning; R/O [place], 24 OBS. Amilcar lives in [place], [place] with his and two b eloved [place]ottweilers. He is hoping to be discharged home today. He has his own vehicle in [facility]. He sees Whit Segovia at [...] Summary & Review . Pt arrived to [facility] at 2114 with no c/o pain. His [...] | | | | | | [place] [address] | | | | | | [phone] | | | | | | | [...] Performed At | + + + | [facility] ECHOCARDIOGRAM REPORT | | | STUDY DATE: 03/19/2015 PATIENT NAME: Meo Sanchez | | | : 1960 PCP: [...] HEALTH SERVICES 03/19/2015 15:44 | | | Disease Intervention Specialist: Dewey Valdez RDMS | | + + [...] + | [facility] | [address] | [place] | [phone] | | [facility] | | [address] | | | - LABORATORY | | [...] [facility] | | | | | | [facility]Juna [facility] | | | [...] mL/min/1.73m2 | [facility] | | | [place] | RATE,ESTIMATED | | MEDICAL | | | | mL/min/1.29c8Qock than | | CENTER - | | [...] ST. | [address] | [place], [place] | [phone] | | [facility] | | [address] | | | - LABORATORY | | [...] [address] | [place] | [phone] | | [facility] | | [address] | | | - LABORATORY | | [...] [address] | [place] | [phone] | | [facility] | | [address] | | | - LABORATORY | | [...] [address] | [place] | [phone] | | [facility] | | [address] | | | - [...] MEDICAL | | | | | | [place] - | | | | | | [...] [address] | [place] | [phone] | | [facility] | | [address] | | | - LABORATORY | | [...] [address] | [place] | [phone] | | [facility] | | [address] | | | - LABORATORY | | [address] | [place] | [phone] | | [facility] | | [address] | | | - LABORATORY | | [...] [address] | [place] | [phone] | | [facility] | | [address] | | | - LABORATORY | | [...] [facility] | | | | | | [facility] | | | | | | MEDICAL | | | | | | [place] - | | | | | | LABORATORY | | + +-------+ + + + + + | Specimen | + + | Blood | + + + + + + + | Performing | Address | City/State/Zipcode | Phone Number | | Organization | | | | + + + + + | [facility] | [address] | [place] | [phone] | | [facility] | | [address] | | | - LABORATORY | | [...] | mL/min/1.73m2 | MICHELLE | | | [place] | RATE,ESTIMATED | | MEDICAL | | | | mL/min/1.63x9Qyoj than | | CENTER - | | [...] ST. | [address] | [place], [place] | [phone] | | [facility] | | [address] | | | - LABORATORY | | [...] [address] | [place] | [phone] | | [facility] | | [address] | | | - LABORATORY | | [...]
--- OUTSIDE RECORDS SUMMARY | ~2020-06-07 | XMS | Encounter Summary ---
Demographics + + + | Address | [address] | | | [place] [address] | + + + | Home Phone [...] Providers + +------+ + | Care Production Gear Cutter Name | Role | Phone | + +------+ + | Kirk French MD | PCP | | + +------+ + Encounter Details +--------+---------+ + + + | Date | Type | Department | Care Team | Description | +--------+---------+ + + + | 01/05/ | Surgery | [facility] | Emmanuel Daniel MD | EGD | | 2019 | | MED CTR MP INTRA OP | [address], [place] | | | | | [address] | [address] [place], [place] | | | | | [place], [place] | [address] | | | | | [address] | | | | | | [phone] | | | +--------+---------+ + + + [...] for a few hours. Date Last Reviewed: 09/22/201619993502-6498 [employer]. [address] [place] [address]. All righ ts reserved. This information is [...] vomiting, or vomiting blood Date Last Reviewed: 05/22/201619997707-9228 [employer]. [address] [place] [address]. All righ ts reserved. This information is [...] You can't be awakened Date Last Reviewed: 09/08/201619997767-6171 [employer]. [address] [place] [address], [place] [address]. All righ ts reserved. This information is [...] + + + +---------+ + + | [place]-3 Fatty | CAPS, one capsule by | [...] of diarrhea since serving in the in [facility]. His last episodes of diarrhea [...] through [facility] November s howed mild diverticulosis without [...] Endoscopy Patient: Moe Sanchez : 1960 Acct: [id number] Exam Date: December Doctor: Emmanuel Daniel MD [...] If unable to reach your physician, call [facility] Emergency Department at Ext. 2500 Your [...] Exams Patient: Moe Sanchez : 1960 Acct: [id number] Exam Date: December Doctor: Emmanuel Daniel MD [...] If unable to reach your physician, call [facility] Emergency Department at [address]. [address] Your [...] [address] | | | | | | [address] [place], | | | | | | [place] [address] | | | | | | [phone] | | | | | | | [...] [address], | REFERENCE LAB | | [place], [place] [id number] Nail Tech: Miguel Galarza MD, Phone: | [facility] | | [phone] | | + + + + + + + + | Performing | Address | City/State/Zipcode | Phone Number | | Organization | | | | + + + + + | REFERENCE LAB | [address] | [place], [place] | [phone] | | [facility] | [facility] | [address] | | + + + + + [...] | REFERENCE LAB | | [place] [id number] Nail Tech: Miguel Galarza MD, Phone: | [facility] | | [phone] | | + + + + + + + + | Performing | Address | City/State/Zipcode | Phone Number | | Organization | | | | + + + + + | REFERENCE LAB | [address] | [place] | [phone] | | [facility] | [facility] | [address] | | + + + + + [...] [address] | [place] | [phone] | | [facility] | | [address] | | | - LABORATORY | | [...] [address] | [place] | [phone] | | [facility] | | [address] | | | - LABORATORY | | [...] [address] | [place] | [phone] | | [facility] | | [address] | | | - LABORATORY | | [...] + | [facility] | [address] | [place] | [phone] | | [facility] | | [address] | | | - LABORATORY | | [...] [address] | [place] | [phone] | | [facility] | | [address] | | | [...] [address] | [place] | [phone] | | [facility] | | [address] | | | - LABORATORY | | | | + + + + + EGD (01/05/2019 8:36 AM PST) + + | Specimen | + + | | + + + + -+ | Narrative | Performed At | + + -+ | | [facility] | | GastroenterologyPatient Name: Moe Venegas Date: | PROVATION | | 01/05/2019 8:36 AMMRN: [id number] #: [id number] of : | | | 9Admit Type: AmbulatoryAge: 58Room: [facility] 01Gender: MaleNote | | | Status: FinalizedAttending MD: Emmanuel Daniel , MDProcedure: | | | Upper GI endoscopyIndications: Diarrhea, Weight | | | lossProviders: Emmanuel Daniel MD, Heidi Akinsfield, | | | RN, Kim Hicks, Risk Control Officer, | | | Jarett Barakat MD (Anesthesia [...] physician, the nurse, the anesthesiologist and the donor floor technician | | | in the endoscopy [...] | | Imaging was performed using the [employer] | | | Endoscopy (FICE) [...] Scope In: 8:43:57 AMScope Out: 8:49:50 AM [facility]. | | | [facility], [address] [place] [address] | | | [phone] | | |Recommendation: | | | - [...] |Scope Out: 8:49:50 AM | | | [facility]. [facility], [address] [place] [address] | | | [address] | | + + -+ + +---------+ [...] | PROVATION | | 01/05/2019 8:36 AMMRN: [id number] #: [id number] of : | | | 9Admit Type: AmbulatoryAge: 58Room: [facility] 01Gender: MaleNote | | | Status: FinalizedAttending MD: Emmanuel Daniel [facility]: | | | ColonoscopyIndications: Clinically significant diarrhea of | | | unexplained origin, Weight lossProviders: | | | Emmanuel Daniel MD, Heidi An RN, [place] | | | Fiorella Hicks, Risk Control Officer, Jarett Alejo | | | MD Roshni [...] | | | the anesthesiologist and the donor floor technician in the endoscopy suite. | | [...] AMScope Out: | | | 9:06:28 AM [facility], [address] [facility], | | | [place] [address] | | | - Discharge patient to [...] |Scope Out: 9:06:28 AM | | | [facility], [address] [facility], [place], [place] | | | [address] | | + + -+ + +---------+ [...] | | | (atherosclerotic heart disease of [place] coronary artery without | | | angina [...] or | | | microscopic colitis. BES:[facility]:C3NR GROSS DESCRIPTION: A. The | | | specimen, labeled "[place], duodenal biopsy" is received in formalin | | | and consists of seven 0.1-0.5 cm lin fragments. Entirely submitted in | | | (A1). B. The specimen, labeled "[place], right colon" is received | | | in formalin and consists of six 0.2-0.3 cm lin fragments. Entirely | | | submitted in (B1). C. The specimen, labeled "[place], left colon" | | | is received in formalin and consists of six 0.2-0.3 cm lin-pink | | | fragments. Entirely submitted in (C1). am:AMB:rds PERFORMING | | | LABORATORY: The technical component was performed by [employer] | | | [employer], [address] [place] [address] (Dry Wall Installations Mechanic: | | | Kailey Stafford MD; CLIA# [id number]). Professional interpretation was | | | performed by [facility], [facility] | | | [place] [address] (Dry Wall Installations Mechanic: [place] | Shanique Dao M.D.; CLIA#: [id number]). Diagnostician: Ishaan Fitzpatrick | | | Sylwia [...] ONCE PRN, Wheezing, | | | Starting [facility] 01/05/19 at 0924, | | | For [...] PRN, Nausea, Vomiting, Starting | | | [facility] 01/05/19 at 0924, | | | Recovery/Phase [...]
--- OUTSIDE RECORDS SUMMARY | ~2020-06-07 | XMS | Encounter Summary ---
Demographics + + + | Address | [address] | | | [place] [address] | + + + | Home Phone [...] Team Providers + +------+ + | Care Map Maker Name | Role | Phone | [...] | | | [address] [place] | [place] [address] | | | | | [place] [address] | | | | | | [phone] | | | +--------+ + + + [...] | | | | | | [place] [address] | | | | | | [phone] | | | | | | | [...]
--- OUTSIDE RECORDS SUMMARY | ~2020-06-07 | XMS | Encounter Summary ---
Demographics + + + | Address | [address] | | | [place] [address] | + + + | Home Phone [...] + +------+ + | Care Industrial Hygiene Technician Name | Role | Phone | + +------+ + PCP | Unavailable | + +------+ + Encounter Details +--------+ + + + + | Date | Type | Department | Care Team | Description | +--------+ + + + + | 10/19/ | Hospital | [facility] | | | | 1992 | Encounter | MED CTR EMERGENCY | | | | | | [address] | | | | | | [place] | | | | | | [address] | | | | | | [phone] | | | +--------+ + + + [...] | | | | | | [place] [address] | | | | | | [phone] | | | | | | | | +--------+ + + + + documented as of this encounter Visit Diagnoses Not on filedocumented in this encounter"
--- OUTSIDE RECORDS SUMMARY | ~2020-06-07 | XMS | Encounter Summary ---
Demographics + + + | Address | [address] | | | [place] [address] | + + + | Home Phone [...] Team Providers + +------+ + | Care Clothing Patternmaker Name | Role | Phone | [...] | | | | [place] | [phone] | | | | | [address] | | | | | | [phone] | | | +--------+ + + + [...] + + + +---------+ + + | [place]-3 Fatty | CAPS, one capsule by | [...] | | | | | | [place] [address] | | | | | | [phone] | | | | | | | [...]
--- OUTSIDE RECORDS SUMMARY | ~2020-06-07 | XMS | Encounter Summary ---
Demographics + + + | Address | [address] | | | [place] [address] | + + + | Home Phone [...] Providers + +------+ + | Care Box Office Manager Name | Role | Phone [...] | | | | | | [facility] [place], [place] | (Fax) | | | | | [address] | | | | | | [phone] | | | +--------+ + + + [...] | | | | | | [place] [address] | | | | | | [phone] | | | | | | | | +--------+ + + + + documented as of this encounter Visit Diagnoses Not on filedocumented in this encounter"
--- OUTSIDE RECORDS SUMMARY | ~2020-06-07 | XMS | Encounter Summary ---
Demographics + + + | Address | [address] [place] [address] [address] | | | [place] [address] | + + + | Home Phone [...] [place] | | | | | [address] | | + + + + + Care Team Providers + +------+ + | Care Medical And Scientific Illustrator Name | Role | Phone [...] | | Bradycardia | | | | [place] [facility] | | | | | | and Healing, | | | | | | [address] | | | | | | [place], [place] | | | | | | [address] | | | | | | [phone] | | | +--------+------+ + + + [...] Way Lab) | [facility] | | [place] [address] [address] [facility] | REGIONAL | | [place] [address] | LABORATORY | + + + + + + + + | Performing | Address | City/State/Zipcode | Phone Number | | Organization | | | | + + + + + | [facility] | [address] | [place] [address] | | | LABORATORY | | | [...] RLB ([address] [facility]) | | | [place] [address] | | | [place] [address] | | + + + + + + + + | Performing | Address | City/State/Zipcode | Phone Number | | Organization | | | | + + + + + | [facility] | [address] | [place] [address] | | | LABORATORY | | | [...] | | | DEPARTMENT | | | BER[facility] | | | OF | | | [...] | + + + + + | [facility] | [address] | [place] [address] | | | PATHOLOGY | [address] | | | + + + + + documented in this encounter Visit Diagnoses + + | Diagnosis | + + | Chest pain Chest pain, unspecified | + + | Bradycardia Other specified cardiac dysrhythmias | + + documented in this encounter"
--- OUTSIDE RECORDS SUMMARY | ~2020-06-07 | XMS | Encounter Summary ---
Demographics + + + | Address | [address] | | | [place] [address] | + + + | Home Phone [...] Providers + +------+ + | Care Mattress Packer Name | Role | Phone | + +------+ + | Kirk French MD | PCP | | + +------+ + Encounter Details +--------+ + + + + | Date | Type | Department | Care Team | Description | +--------+ + + + + | 06/19/ | Orders Only | [facility] | Fabrice Hylton, | Abnormal weight | | 2019 | | SYSTEM GENERIC OP | MD [address] | loss; Anxiety | | | | CONVERSION [address] [place], [place] | disorder; Chronic | | | | [address] [place], [place] | [address] | pain syndrome; | | | | [address] | | Obesity; Neuralgia | | | | [phone] | | and neuritis, | | | [...] | | | | | | [place], | | | | | | [place] [address] | | | | | | [phone] | | | | | | | [...]
--- OUTSIDE RECORDS SUMMARY | ~2020-06-07 | XMS | Encounter Summary ---
Demographics + + + | Address | [address] | | | [place] [address] | + + + | Home Phone [...] Providers + +------+ + | Care Development Consultant Name | Role | Phone | + +------+ + | Kirk French MD | PCP | | + +------+ + Encounter Details +--------+ + + + + | Date | Type | Department | Care Team | Description | +--------+ + + + + | 07/21/ | [facility] | [facility] | Daljit Singletary, | Palpitations; | | 2018 | Encounter | MED CTR NUCLEAR | MD [address] | Presence of | | | | MEDICINE [address] [place], | permanent cardiac | | | | [address] [place], | [place] [address] | pacemaker; | | | | [place] [address] | [phone] | Sinoatrial node | | | | [phone] | | dysfunction (HCC) | +--------+ + [...] + + + +---------+ + + | [place]-3 Fatty | CAPS, one capsule by | [...] 1:11 PM PDTAssociated Order(s): EVENT [facility]ITOR [facility] from 07/21 until 08/22/2018. [...] [address] | | | | | | [address] [place], | | | | | | [place] [address] | | | | | | [phone] | | | | | | | [...] 08/25/2018 13:12 Wireless even study from | [place]STOP[place] SHERLYN | | 07/21 until 08/22/2018. Baseline [...]
--- OUTSIDE RECORDS SUMMARY | ~2020-06-07 | XMS | Encounter Summary ---
Demographics + + + | Address | [address] | | | [place] [address] | + + + | Home Phone [...] Providers + +------+ + | Care Tobacco Sieve Operator Name | Role | Phone | + +------+ + PCP | Unavailable | + +------+ + Encounter Details +--------+ + + + + | Date | Type | Department | Care Team | Description | +--------+ + + + + | 06/23/ | [facility] | [facility] | Arthur Page MD | | | 2007 - | Encounter | MED CTR MED ONC | [address] [facility] | | | | | [address] [place] | [place] | | | 06/25/ | | [place] [address] | [id number] | | | 2007 | | [phone] | | | +--------+ + + + [...] | | | | | | [place] [address] | | | | | | [phone] | | | | | | | | +--------+ + + + + documented as of this encounter Visit Diagnoses Not on filedocumented in this encounter"
--- OUTSIDE RECORDS SUMMARY | ~2020-06-07 | XMS | Encounter Summary ---
Demographics + + + | Address | [address] | | | [place] [address] | + + + | Home Phone [...] Results | | 2012 | | [facility] [place] | [address] | | | | | [address] | [place] | | | | | [place], [place] | [address] | | | | | [address] | | | | | | [phone] | | | +--------+ + + + [...] | | | | | | [place] [address] | | | | | | [phone] | | | | | | | | +--------+ + + + + documented as of this encounter Visit Diagnoses Not on filedocumented in this encounter"
--- OUTSIDE RECORDS SUMMARY | ~2020-06-07 | XMS | Encounter Summary ---
Demographics + + + | Address | [address] | | | [place] [address] | + + + | Home Phone [...] Providers + +------+ + | Care Senior Automation Engineer Name | Role | Phone | [...] [address] | | | | | [place], | [place], | | | | | [place] [address] | [place] [address] | | | | | [phone] | [phone] | | | | | | | [...] | | | | | | [place] [address] | | | | | | [phone] | | | | | | | | +--------+ + + + + documented as of this encounter Visit Diagnoses Not on filedocumented in this encounter"
--- OUTSIDE RECORDS SUMMARY | ~2020-06-07 | XMS | Encounter Summary ---
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 The patient had this done in [place], but he does not want to return there as he has no place to stay locally and would prefer to do a consul tation in [place]. Can you please let patient know that [...] | | | | | | [place] [address] | | | | | | [phone] | | | | | | | | +--------+ + + + + documented as of this encounter Visit Diagnoses Not on filedocumented in this encounter"
--- OUTSIDE RECORDS SUMMARY | ~2020-06-07 | XMS | Encounter Summary ---
Demographics + + + | Address | [address] | | | [place] [address] | + + + | Home Phone [...] Team Providers + +------+ + | Care Baker Second Name | Role | Phone | [...] abdominal | [address] | [address], | | | | | pain | [address] | [address] | | | | | Chronic pain | [address] | [place], | | | | | syndrome | [place], [place] | [place] [address] | | | | | Procedures | [address] | Phone: | | | | | Office Visit | Phone: | [phone] | | | | | | [phone] | Fax: | | | | | | Fax: | [phone] | | | | | | [phone] | | +--------+--------+ + + + + Encounter Details +--------+---------+ + + + | Date | Type | Department | Care Team | Description | +--------+---------+ + + + | 12/02/ | Office | [facility] | Emmanuel Daniel MD | Diarrhea, | | 2018 | Visit | GASTROENTEROLOGY | [address], [place] | unspecified type | | | | [address] | [address] [place], [place] | (Primary Dx); Weight | | | | [address] [place], [place] | [address] | loss, | | | | [address] | | unintentional; | | | | [phone] | | Generalized | | | | [...] any noct urnal symptoms. He was in [facility] 2 years ago and required [...] severe diarrhea probable infective occurring while visiting [facility] Diarrhea etiology and significance to [...] | | | | | | [place] [address] | | | | | | [phone] | | | | | | | [...]
--- OUTSIDE RECORDS SUMMARY | ~2020-06-07 | XMS | Encounter Summary ---
Demographics + + + | Address | [address] | | | [place] [address] | + + + | Home Phone [...] Team Providers + +------+ + | Care Orthopedically Impaired Teacher Name | Role | Phone | [...] | 02/15/ | Office | [facility] [place] | Silvia, | Symptomatic PVCs | | 2012 | Visit | CARDIOLOGY [address] | PARISA [place] [address] | (Primary Dx); | | | | [place], | [place], | Bradycardia; HTN | | | | [place] [address] | [place] [address] | (hypertension) | | | | [phone] | [phone] | | | | | | | [...] at which time patient was going to [place] for motor tune up specialist co nsult and PVC ablation. Since [...] tablet Take 1,000 mg by mouth Daily. Helena-3 Fatty Acids (SALMON OIL-1000 PO) CAPS, one [...] by Dr. Gambino at [facility] on 01/30/2013. Patient had spontaneous PVCs [...] to go back in 3 days to [place] for an attempt of ablation under general [...] He is in a class II of [place] [employer] functional class. There is no [...] been encouraged to keep his appointment with motor tune up specialist this coming y to attempt ablation therapy. 4. Follow up appointment in 4-6 weeks. IJaneen ARNP, saw this patient under the direct supervision of Daljit Singletary MD Portions of this report were transcribed using voice recognition software. Every effort wa s made to ensure accuracy; however, inadvertent computerized rate reviewer errors may be pre sent. documented in [...] | | | | | | [place] [address] | | | | | | [phone] | | | | | | | [...]
--- OUTSIDE RECORDS SUMMARY | ~2020-06-07 | XMS | Encounter Summary ---
Demographics + + + | Address | [address] | | | [place] [address] | + + + | Home Phone [...] Providers + +------+ + | Care Repairer Pump Name | Role | Phone | + +------+ + | Michael Amanda DO | PCP | | + +------+ + Encounter Details +--------+ + + + + | Date | Type | Department | Care Team | Description | +--------+ + + + + | 07/30/ | Abstract | [facility] [place] [facility] | Michael Amanda, | | | 2013 | | MEDIC[facility] [place] | DO [address] | | | | | [address] | [place] | | | | | [place] | [address] | | | | | [address] | | | | | | [phone] | | | +--------+ + + + [...] | | | | | | [place] [address] | | | | | | [phone] | | | | | | | [...] + | [address] [facility] | [address] | [place], [place] | [phone] | | [facility] | | [address] | | | - LABORATORY | | | | + + + + + | [address] | [address] | [place] | | | [facility] | | [address] [place] [address] | | | - LABORATORY | | [...] | | | | | | | [place], | | | | | | External [...]
--- OUTSIDE RECORDS SUMMARY | ~2020-06-07 | XMS | Encounter Summary ---
Demographics + + + | Address | [address] | | | [place] [address] | + + + | Home Phone [...] + +------+ + | Care Mechanical Systems Designer Name | Role | Phone | + +------+ + PCP | Unavailable | + +------+ + Encounter Details +--------+ + + + + | Date | Type | Department | Care Team | Description | +--------+ + + + + | 06/25/ | [facility] | [facility] | Daljit Singletary, | | | 2008 | Encounter | MED CTR XRAY [address] | [address] [place] | | | | | [place] | [facility] [place], | | | | | [place] [address] | [place] [address] | | | | | [phone] | [phone] | | | | | | | [...] | | | | | | [place] [address] | | | | | | [phone] | | | | | | | | +--------+ + + + + documented as of this encounter Visit Diagnoses Not on filedocumented in this encounter"
--- OUTSIDE RECORDS SUMMARY | ~2020-06-07 | XMS | Encounter Summary ---
Demographics + + + | Address | [address] | | | [place] [address] | + + + | Home Phone [...] Providers + +------+ + | Care Insurance Claim Approver Name | Role | Phone | [...] Refill | | 2014 | | [facility] [place] | DO [address] | | | | | [address] | [place] | | | | | [place] | [address] | | | | | [address] | | | | | | [phone] | | | +--------+--------+ + + + [...] | | | | | | [place] [address] | | | | | | [phone] | | | | | | | | +--------+ + + + + documented as of this encounter Visit Diagnoses Not on filedocumented in this encounter"
--- OUTSIDE RECORDS SUMMARY | ~2020-06-07 | XMS | Clinical Summary ---
Demographics + + + | Address | [address] [place] [address] | | | [place] [address] | + + + | Home Phone [...] [place] | | | | | [address] | | + + + + + Care Team Providers + +------+ + | Care Dental Equipment Installer And Servicer Name | Role | Phone | + +------+ + | Darion Holden DO | PCP | | + +------+ + Source Comments IVETTE is fully live on both EpicCare Ambulatory and EpicCare InPatient.[facility] Allergies + [...] | | | | | | | [address] | | + +--------+ +--------+ + +--------+ | [employer] | AARP | [phone] | 11/22/19 | [phone] | [address] | Indemn | | RETIRED PEOPLE | | | 10-Pre | 9 | [id number] | ity | | | | | sent | | [place], [place] | | | | | | | | [address] | | + +--------+ +--------+ + +--------+ + +--------+ +--------+ + + | Guarantor Name | Accoun | Relation to | Date | Phone | Billing Address | | | t Type | Patient | of | | | | | | | | | | + +--------+ +--------+ + + | Moe Sanchez W | Person | Self | [birth year] | [address] | | | cristo/Per | | 1959 | [phone] | [place] | | | roxanne | | | 8 (Home) | [address] | + +--------+ +--------+ + + Advance Directives + + + + + | Type | Date Recorded | Patient | Explanation | | | | Alumnae Secretary | | + + + + + | Advance | | | | | Directives and | | | | | Living Will | | | | + + + + + | Power of | | | | | Agency Recruiter | | | | + + + + +
--- OUTSIDE RECORDS SUMMARY | ~2020-06-07 | XMS | Encounter Summary ---
Demographics + + + | Address | [address] | | | [place] [address] | + + + | Home Phone [...] Providers + +------+ + | Care Media Relations Director Name | Role | Phone | [...] + + | 08/17/ | Office | [facility] | Michael Amanda, | Testosterone | | 2012 | Visit | [facility] [place] | DO [address] | deficiency (Primary | | | | [address] | [place] | Dx); Hypoglycemia; | | | | [place] | [address] | Herpes | | | | [address] | | | | | | [phone] | | | +--------+---------+ + + + [...] lowering his testosterone levels. He seen at [facility]. He was prescribed OxyContin and Dilaudid. [...] erectile dy sfunction. He was seen at [facility] yesterday and they prescribed him testostero ne cypionate injections. He's not sure when they wanted him to come back for labs. He has a followup appointment with [facility] in one month. Patient complains of [...] HTN (hypertension); Hypercholesterolemia; Bipolar 1 disorder; Insomnia; Dam Tender jennifer neck pain; Depression; Hyperlipidemia; BIPOLAR DISORDER [...] per orders. This note is dictated using [employer] voice recognition software. This note was dictated [...] | | | | | | [place] [address] | | | | | | [phone] | | | | | | | [...]
--- OUTSIDE RECORDS SUMMARY | ~2020-06-07 | XMS | Encounter Summary ---
Demographics + + + | Address | [address] | | | [place] [address] | + + + | Home Phone [...] Providers + +------+ + | Care Certified Ethical Hacker Name | Role | Phone | [...] | about palpitations) | | | | [place], | [place], | | | | | [place] [address] | [place] [address] | | | | | [phone] | [phone] | | | | | | | [...] | | | | | | [place] [address] | | | | | | [phone] | | | | | | | | +--------+ + + + + documented as of this encounter Visit Diagnoses Not on filedocumented in this encounter"
--- OUTSIDE RECORDS SUMMARY | ~2020-06-07 | XMS | Encounter Summary ---
Demographics + + + | Address | [address] | | | [place] [address] | + + + | Home Phone [...] Providers + +------+ + | Care Supervisor Quilting Name | Role | Phone | + [...] W | | | | | [place], | [place], | | | | | [place] [address] | [place] [address] | | | | | [phone] | [phone] | | | | | | | [...] willing to try the CT here at [facility] if needed but not at [facility] ...................... .....................Darlene Tirado RN on 04/09/2014 at 14:53 elephone Encounter - Kailey Pruitt RN - 04/09/2014 11:36 AM PDTSpoke to PARISA Russell, she would like patient to decrease clonidine back to ordered three times per day and increase amlodipine fr om 5 to 10 mg per day if pressure is 160 systolic and keep a blood pressure log, call in a w nightmute with the pressures and PARISA Russell may [...] systolic. This explained to patient that at [facility] wanted to do a C T angiogram [...] took a nitro a nd went into [facility] for treatment. While there he refused a CT. He states he was told by a doctor at [facility] that CTs give him unneccesary radiation, so he refused a CT from [facility]. He states that he has been adjusting his clonidine to reduce hos blood pressure. He normally takes 3 a day but is taking 4-5 a day. Advised him I would speak with PARISA Waldron and find out if she has any instructions and get back to him. He states he is celeste ling to go to [facility] but will not go back to [facility]. documented in this encounter Plan of Treatment [...] | | | | | | [place] [address] | | | | | | [phone] | | | | | | | | +--------+ + + + + documented as of this encounter Visit Diagnoses Not on filedocumented in this encounter
--- OUTSIDE RECORDS SUMMARY | ~2020-06-07 | XMS | Encounter Summary ---
Demographics + + + | Address | [address] | | | [place] [address] | + + + | Home Phone [...] Team Providers + +------+ + | Care Tutor Coordinator Name | Role | Phone | [...] [address] | | | | | [address] | [place] [address] | | | | | [phone] | [phone] | | | | | | | [...] | | | | | | [place] [address] | | | | | | [phone] | | | | | | | [...]
--- OUTSIDE RECORDS SUMMARY | ~2020-06-07 | XMS | Encounter Summary ---
Demographics + + + | Address | [address] | | | [place] [address] | + + + | Home Phone [...] Team Providers + +------+ + | Care Tape Transferrer Name | Role | Phone | + [...] | | | | | | [address] [place], [place] | | | | | | [address] | | | | | | [phone] | | | +--------+ + + + [...] | | | | | | [place] [address] | | | | | | [phone] | | | | | | | | +--------+ + + + + documented as of this encounter Visit Diagnoses Not on filedocumented in this encounter"
--- OUTSIDE RECORDS SUMMARY | ~2020-06-07 | XMS | Encounter Summary ---
Demographics + + + | Address | [address] [place] [address] [place] [place] | | | [place] [address] | + + + | Home Phone [...] [place] | | | | | [address] | | + + + + + Care Team Providers + +------+ + | Care Sr. Strategic Sourcing Manager Name | Role | Phone | [...] | | | | [address] [place] | [place], [place] | | | | | for Health and | [address] | | | | | Healing, [address] | [phone] | | | | | [place], [place] | | | | | | [address] | | | | | | [phone] | | | +--------+ + + + [...]
--- OUTSIDE RECORDS SUMMARY | ~2020-06-07 | XMS | Encounter Summary ---
Demographics + + + | Address | [address] | | | [place] [address] | + + + | Home Phone [...] + +------+ + | Care Social Media Campaign Manager Name | Role | Phone [...] + + | 03/02/ | Emergency | [facility] | Lizbeth Green | Situational stress | | 2013 | | MED CTR EMERGENCY | DO Nicole Fink | (Primary Dx) | | | | CENTER [address] | [place], [place] | | | | | [place], [place] | [address] | | | | | [address] | | | | | | [phone] | | | +--------+ + + + [...] new doc you can try over at [facility] documented in this encounter Medications at [...] Daljit Singletary MD. On 03/07/2014. Contact information: [address] [place] [address], Cardiology [address] [facility] [address] Lizbeth Green MD 03/03/14 [address] [...] for same compl aint, seen last night [place] for chest pain (sharp in quality). documented [...] | | | | | | [place] [address] | | | | | | [phone] | | | | | | | | +--------+ + + + + documented as of this encounter Visit Diagnoses + + | Diagnosis | + + | Situational stress - Primary Other psychological or physical stress, not elsewhere | | classified | + + documented in this encounter
--- OUTSIDE RECORDS SUMMARY | ~2020-06-07 | XMS | Encounter Summary ---
Demographics + + + | Address | [address] | | | [place] [address] | + + + | Home Phone [...] Providers + +------+ + | Care Fruit Raiser Name | Role | Phone | [...] [address] | | | | | [place], | [place], | | | | | [place] [address] | [place] [address] | | | | | [phone] | | | | | | | [...] | | | | | | [place] [address] | | | | | | [phone] | | | | | | | | +--------+ + + + + documented as of this encounter Visit Diagnoses Not on filedocumented in this encounter"
--- OUTSIDE RECORDS SUMMARY | ~2020-06-07 | XMS | Encounter Summary ---
Demographics + + + | Address | [address] | | | [place] [address] | + + + | Home Phone [...] Providers + +------+ + | Care Clinical Informatics Director Name | Role | Phone | + +------+ + PCP | Unavailable | + +------+ + Encounter Details +--------+ + + + + | Date | Type | Department | Care Team | Description | +--------+ + + + + | 08/17/ | [facility] | [facility] | Evan Gandara MD | | | 2005 | Encounter | MED CTR LABORATORY | [address] [facility] | | | | | [address] | [place] | | | | | [place] | [address] | | | | | [address] | | | | | | [phone] | | | +--------+ + + + [...] | | | | | | [place] [address] | | | | | | [phone] | | | | | | | | +--------+ + + + + documented as of this encounter Visit Diagnoses Not on filedocumented in this encounter"
--- OUTSIDE RECORDS SUMMARY | ~2020-06-07 | XMS | Encounter Summary ---
Demographics + + + | Address | [address] | | | [place] [address] | + + + | Home Phone [...] Providers + +------+ + | Care Pot Firer Name | Role | Phone | [...] | | | EMERGENCY CENTER | [address] [place] | | | | | [address] | [address] | | | | | [facility] [place] | [phone] | | | | | [address] | | | | | | [phone] | | | +--------+ + + + [...] | | | | | | [place] [address] | | | | | | [phone] | | | | | | | | +--------+ + + + + documented as of this encounter Visit Diagnoses + + | Diagnosis | + + | Chest pain, unspecified | + + documented in this encounter"
--- OUTSIDE RECORDS SUMMARY | ~2020-06-07 | XMS | Encounter Summary ---
Demographics + + + | Address | [address] | | | [place] [address] | + + + | Home Phone [...] Providers + +------+ + | Care Business Loan Processor Name | Role | Phone | [...] | | | [address] [place] | [place] [address] | | | | | [address] | | | | | | [phone] | | | +--------+ + + + [...] | | | | | | [place] [address] | | | | | | [phone] | | | | | | | | +--------+ + + + + documented as of this encounter Visit Diagnoses Not on filedocumented in this encounter"
--- OUTSIDE RECORDS SUMMARY | ~2020-06-07 | XMS | Encounter Summary ---
Demographics + + + | Address | [address] | | | [place] [address] | + + + | Home Phone [...] Team Providers + +------+ + | Care Platen Drier Operator Name | Role | Phone [...] | Telephone | [facility] [place] | [place], | Blood Pressure (Low | | 2017 | | CARDIOLOGY [address] | Janeen REHAB NURSE [address] | reading) | | | | [place], | [place], | | | | | [place] [address] | [place] [address] | | | | | [phone] | [phone] | | | | | | | [...] | | | | | | [place] [address] | | | | | | [phone] | | | | | | | | +--------+ + + + + documented as of this encounter Visit Diagnoses Not on filedocumented in this encounter
--- OUTSIDE RECORDS SUMMARY | ~2020-06-07 | XMS | Encounter Summary ---
Demographics + + + | Address | [address] | | | [place] [address] | + + + | Home Phone [...] Providers + +------+ + | Care Medical Education Manager Name | Role | Phone [...] + | 01/30/ | Telephone | [facility] | [place], | Other (medication | | 2019 | | CARDIOLOGY [address] | PARISA [address] | question) | | | | [place], | [place], | | | | | [place] [address] | [place] [address] | | | | | [phone] | [phone] | | | | | | | [...] RN - 02/02/2020 2:36 PM PDTPatient notified, [facility], leg swelling is gone ..........................................El radha Valentine RN on 02/02/20 at 2:37 PM elephone [facility] - 02/01/2020 12:43 PM PDTLeft [...] and the physician who prescribed Lyrica at [facility] in [place] suggested he get BLE ultrasounds to check for DVT's. He would like to get ultr asounds done here at [facility]. I returned patients call and informed him of Janeen's last message on this note, and patien t states he wants to stop taking Lyrica because of this side effect. He states he is still h aving foot pain because of the edema. I advised patient to follow up today with the [place] clinic to notify them and obtain the ul trasound orders and complete them here at [facility]. He will notify us of any worsening [...] that he sees a pain specialist in [place] and they would like him to star [...] | | | | | | [place] [address] | | | | | | [phone] | | | | | | | | +--------+ + + + + documented as of this encounter Visit Diagnoses Not on filedocumented in this encounter
--- OUTSIDE RECORDS SUMMARY | ~2020-06-07 | XMS | Encounter Summary ---
Demographics + + + | Address | [address] [place] [address] [address] | | | [place] [address] | + + + | Home Phone [...] [place] | | | | | [address] | | + + + + + Care Team Providers + +------+ + | Care Fire Watchman Name | Role | Phone | [...] | | | | | [place] | [place], [place] | | | | | | l weight | [address] | | | | | | loss | Phone: | | | | | | Procedures | [phone] | | | | | | CONSULT TO | Fax: | | | | | | NON - IVETTE | [phone] | | | | | | PROVIDER [...] 2019 | | Center at [facility] [address] | MD [address] | normal, recommend | | | | [address] | [place], [place] | hyoscyamine) | | | | for Health and | [address] | | | | | [facility] 2 | [phone] | | | | | [facility] [place] | | | | | | [address] | | | | | | [phone] | | | +--------+ + + + [...]
--- OUTSIDE RECORDS SUMMARY | ~2020-06-07 | XMS | Encounter Summary ---
Demographics + + + | Address | [address] | | | [place] [address] | + + + | Home Phone [...] Providers + +------+ + | Care Hearing Aide Technician Name | Role | Phone | [...] | 04/07/ | Office | [facility] | Matthew Uriarte | Left ureteral | | 2019 | Visit | [address] | MD Tawanna [address] | calculus (Primary | | | | [place], [place] | [place] | Dx); Kidney stones | | | | [address] | [address] | | | | | [phone] | | | +--------+---------+ + + + [...] April 13, 2019 at 7:45 AM at [facility]. Please report to the [facility] no later than 6:15 AM. REMEMBER: NOTHING TO EAT OR DRINK AFTER MIDNIGHT April 12, 2019. NO FISH OIL, ASPIRIN OR ASPIRIN PRODUCTS ONE WEEK PRIOR TO SURGERY. Tylenol and Advil are OK. You will need to get the following testing done prior to surgery: CBC, BMP YOU WILL NEED TO BRING A GOLD BLOWER WITH YOU THE DAY OF SURGERY. Call us at [phone] with any questions. [] Pain management booklet [...] CV LHC; Surgeon: Daljit Singletary MD; Location: [facility] CV LAB CARDIAC CATHERIZATION N/A 01/25/2019 Procedure: CV Cor Angio; Surgeon: Daljit Singletary MD; Location: [facility] CV LAB COLONOSCOPY N/A 12/24/2017 Procedure: COLONOSCOPY; Surgeon: Emmanuel Daniel MD; Location: [facility] MEDICAL PROCEDURE UNIT COLONOSCOPY N/A 01/05/2019 Procedure: COLONOSCOPY; Surgeon: Emmanuel Daniel MD; Location: [facility] MEDICAL PROCEDURE UNIT EGD 12/24/2017 [...] Procedure: EGD; Surgeon: Emmanuel Daniel MD; Location: [facility] MEDICAL PROCEDURE UNIT UPPER GASTROINTESTINAL ENDOSCOPY N/A 01/05/2019 Procedure: EGD; Surgeon: Emmanuel Daniel MD; Location: [facility] MEDICAL PROCEDURE UNIT VASECTOMY Family [...] 911, Disp: 100 ta blet, Rfl: 3 [place]-3 Fatty Acids (SALMON OIL-1000 PO), CAPS, one capsule by mouth daily twice daily , Disp: , Rfl: ondansetron (ZOFRAN ODT) 4 mg disintegrating tablet, Take 4 mg by mouth., Disp: , Rfl: ONE TOUCH DELICA LANCETS [facility], Check glucose as [...] have not thoroughly proofread this note, and poultry farmer errors are very likely to occur. CC: [...] | | | | | | [place] [address] | | | | | | [phone] | | | | | | | [...]
--- OUTSIDE RECORDS SUMMARY | ~2020-06-07 | XMS | Encounter Summary ---
Demographics + + + | Address | [address] | | | [place] [address] | + + + | Home Phone [...] Providers + +------+ + | Care Log Operations Coordinator Name | Role | Phone | + +------+ + PCP | Unavailable | + +------+ + Encounter Details +--------+ + + + + | Date | Type | Department | Care Team | Description | +--------+ + + + + | 09/12/ | Hospital | [facility] | | | | 1993 | Encounter | MED CTR EMERGENCY | | | | | | [address] | | | | | | [place] | | | | | | [address] | | | | | | [phone] | | | +--------+ + + + [...] | | | | | | [place] [address] | | | | | | [phone] | | | | | | | | +--------+ + + + + documented as of this encounter Visit Diagnoses Not on filedocumented in this encounter"
--- OUTSIDE RECORDS SUMMARY | ~2020-06-07 | XMS | Encounter Summary ---
Demographics + + + | Address | [address] [place] [address] [address] | | | [place] [address] | + + + | Home Phone [...] [place] | | | | | [address] | | + + + + + Care Team Providers + +------+ + | Care Escort Service Attendant Name | Role | Phone [...] | | [address] [facility] | [place], [place] | | | | | [facility] Health and | [address] | | | | | Healing, [facility] 2 | [phone] | | | | | [place], [place] | | | | | | [address] | | | | | | [phone] | | | +--------+ + + + [...]
--- OUTSIDE RECORDS SUMMARY | ~2020-06-07 | XMS | Encounter Summary ---
Demographics + + + | Address | [address] | | | [place] [address] | + + + | Home Phone [...] Providers + +------+ + | Care Information Operator Name | Role | Phone | + +------+ + | Kirk French MD | PCP | | + +------+ + Encounter Details +--------+ + + + + | Date | Type | Department | Care Team | Description | +--------+ + + + + | 01/19/ | Hospital | [facility] | Conversion | Pain | | 2017 | Encounter | CONVERSION DEP [address] | Transaction, | | | | | JUANJO HOLT | Provider Unknown | | | | | [place] | [phone] | | | | | [address] | | | | | | [phone] | | | +--------+ + + + [...] + + + +---------+ + + | [place]-3 Fatty | CAPS, one capsule by [...] | | | | | | [place], | | | | | | [place] [address] | | | | | | [phone] | | | | | | | [...]
--- OUTSIDE RECORDS SUMMARY | ~2020-06-07 | XMS | Encounter Summary ---
Demographics + + + | Address | [address] | | | [place] [address] | + + + | Home Phone [...] Providers + +------+ + | Care Blade Groover Name | Role | Phone | + [...] | 01/24/ | Telephone | [facility] | Daljit Singletary, | Other | | 2018 | | CARDIOLOGY [address] [place] | | | | | [place], | [place], | | | | | [place] [address] | [place] [address] | | | | | [phone] | [phone] | | | | | | | [...] PSTPatient called and left a message on voiceSquidbidil stating he has chest pain daily, with [...] | | | | | | [place] [address] | | | | | | [phone] | | | | | | | | +--------+ + + + + documented as of this encounter Visit Diagnoses Not on filedocumented in this encounter"
--- OUTSIDE RECORDS SUMMARY | ~2020-06-07 | XMS | Encounter Summary ---
Demographics + + + | Address | [address] [place] [address] [address] | | | [place] [address] | + + + | Home Phone [...] [place] | | | | | [address] | | + + + + + Care Team Providers + +------+ + | Care Air Vice Marshal Name | Role | Phone | [...] | | [facility] | [place], [place] | | | | | [facility] Health and | [address] | | | | | Healing, [facility] 2 | [phone] | | | | | [place], [place] | | | | | | [address] | | | | | | [phone] | | | +--------+ + + + [...]
--- OUTSIDE RECORDS SUMMARY | ~2020-06-07 | XMS | Encounter Summary ---
Demographics + + + | Address | [address] | | | [place] [address] | + + + | Home Phone [...] Providers + +------+ + | Care Retail Pharmacy Technician Name | Role | Phone | + +------+ + PCP | Unavailable | + +------+ + Encounter Details +--------+ + + + + | Date | Type | Department | Care Team | Description | +--------+ + + + + | 06/17/ | Hospital | [facility] | | | | 2007 | Encounter | MED CTR EMERGENCY | | | | | | [address] | | | | | | [place] | | | | | | [address] | | | | | | [phone] | | | +--------+ + + + [...] | | | | | | [place] [address] | | | | | | [phone] | | | | | | | | +--------+ + + + + documented as of this encounter Visit Diagnoses Not on filedocumented in this encounter"
--- OUTSIDE RECORDS SUMMARY | ~2020-06-07 | XMS | Encounter Summary ---
Demographics + + + | Address | [address] [place] [address] [address] | | | [place] [address] | + + + | Home Phone [...] [place] | | | | | [address] | | + + + + + Care Team Providers + +------+ + | Care Pallet Repairer Name | Role | Phone | + +------+ + | Darion Holden DO | PCP | | + +------+ + Encounter Details +--------+ + + + + | Date | Type | Department | Care Team | Description | +--------+ + + + + | 01/22/ | Transcribe | [facility] | Transcribe | | | 2020 | Orders | [facility] [address] | Encounter, Provider, | | | | | [address] [place] for | [address] | | | | | Health and Healing, | [place] [address] | | | | | Building [address] | | | | | | [place], [place] | | | | | | [address] | | | | | | [phone] | | | +--------+ + + + [...]
--- OUTSIDE RECORDS SUMMARY | ~2020-06-07 | XMS | Encounter Summary ---
Demographics + + + | Address | [address] | | | [place] [address] | + + + | Home Phone [...] Providers + +------+ + | Care It Programmer Name | Role | Phone | [...] + + | 12/19/ | Telephone | [facility] | Kirk French | Triage (chronic IBS) | | 2020 | | [facility] | MD Bre[address] | | | | | PRIMARY [facility] [address] | | | | | [address] | [place] [address] | | | | | [place], [place] | [phone] | | | | | [address] | | | | | | [phone] | | | +--------+ + + + [...] he has been in and out of [facility] for his chronic IBS. He states h e has been having rectal bleeding. He has a new GI at [facility] and is scheduled for further stud ies next week. He states the heel caser at [facility] advised him to contact PCP. Abdoul nt [...] mario watson Please call patient back at [phone]. If this is a symptom based call, was patient offered triage? Not Applicable If this is a symptom based call and you were unable to immediately transfer the call to a lorraine bellamy saturator operator was caller made aware that if [...] | | | | | | [place] [address] | | | | | | [phone] | | | | | | | | +--------+ + + + + documented as of this encounter Visit Diagnoses Not on filedocumented in this encounter"
--- OUTSIDE RECORDS SUMMARY | ~2020-06-07 | XMS | Encounter Summary ---
Demographics + + + | Address | [address] | | | [place] [address] | + + + | Home Phone [...] Providers + +------+ + | Care City Engineer Name | Role | Phone | [...] [address] | | | | | [place], | [place], | | | | | [place] [address] | [place] [address] | | | | | [phone] | [phone] | | | | | | | [...] | | | | | | [place] [address] | | | | | | [phone] | | | | | | | | +--------+ + + + + documented as of this encounter Visit Diagnoses Not on filedocumented in this encounter"
--- OUTSIDE RECORDS SUMMARY | ~2020-06-07 | XMS | Encounter Summary ---
Demographics + + + | Address | [address] [place] [address] [address] | | | [place] [address] | + + + | Home Phone [...] [place] | | | | | [address] | | + + + + + Care Team Providers + +------+ + | Care Area Cleaner Name | Role | Phone | [...] Chest pain | Farooq Almaguer, | Chh1 [address] | | | | | Bradycardia | DO [address] | | | | | Procedures | Yao [place] | [facility] | | | | | | [facility] | Health and | | | | | TRANSTHORACI | [facility] [place] | Healing, | | | | | C | [address] | Building [address] | | | | | ECHOCARDIOGR | Phone: | [place], [place] | | | | | AM, ADULT | [phone] | [address] | | | | | | Fax: | Phone: | | | | | | [phone] | [phone] | +--------+--------+ + + + + Reason [...] | | | | | | [place] [address] | | | | | | | Phone: | | | | | | | [phone] | | | | | | | Fax: | | | | | | | [phone] | | +--------+--------+ + + + + Encounter Details +--------+---------+ + + + | Date | Type | Department | Care Team | Description | +--------+---------+ + + + | 02/03/ | Office | Cardiology General | Arlette Drew, | Chest pain (Primary | | 2010 | Visit | at [facility] [address] | MD | Dx); Bradycardia; | | | | [facility] for | | Pacemaker | | | | Health and Healing, | | | | | | Building | | | | | | [place], [place] | | | | | | [address] | | | | | | [phone] | | | +--------+---------+ + + + [...] per Dr. Drew's note. Farooq Jamil DO Jewelry Facer Clinical tamping machine operator/ Division of Cardiovascular Medicine asonrussell Yajaira, RN - 02/09/2011 12:59 PM PDT PACEMAKER HISTORY Primary Care Provider: Darion Holden DO Commodity Supervisor: Arlette Drew MD Moe Sanchez is a [...] chamber permanent pacemaker implantation on 06/14/09 in [place], Chronic smoker, mild DIDIER, bip olar disorder with anxiety who presents for second opinion regarding his syncopal episodes. Pt. started noticing dizzy spells and episodes of syncope about 3 years ago , pacemaker was put at the recommendation of Commodity Supervisor Dr. Singletary from [place]. [place]. Pt. states lala bhatti was put>1 [...] form tilt table testing but NA at [facility] May need to involve endocrine and [...] with my attending physici an Dr. Omero DRWE MD CARDIOLOGY - GENERAL [address] Mailcode: [facility], 9th Floor [facility] [address] documented in this en counter Plan of [...] Lab) | [facility] | | [facility] [address] | REGIONAL | | [place] [address] | LABORATORY | + + + + + + + + | Performing | Address | City/State/Zipcode | Phone Number | | Organization | | | | + + + + + | [facility] | [address] | [place] [address] | | | LABORATORY | | | [...] 10.0 ug/dl | LABORATORY | | RLB ([address] [facility]) | | | [place] [address] | | | [address] [place] [facility] [place] [address] | | + + + + + + + + | Performing | Address | City/State/Zipcode | Phone Number | | Organization | | | | + + + + + | [facility] | [address] | [place] [address] | | | LABORATORY | | | [...] | | | DEPARTMENT | | | SAUDI [facility]IAN | | | OF | | | [...] | + + + + + | [facility] DEPARTMENT | [address] | [place] [address] | | | PATHOLOGY | [address] [...] DEPT OF | [address] | [place], [place] | | | CARDIOLOGY | [address] | [address] | | + + + + + [...] DEPT OF | [address] | [place], [place] | | | CARDIOLOGY | [address] | [address] | | + + + + + [...] view image for the detailed interpretation from [employer] results. | CARDIOLOGY | + + + + + + + + | Performing | Address | City/State/Zipcode | Phone Number | | Organization | | | | + + + + + | [facility] DEPT OF | [address] | [place], [place] | | | CARDIOLOGY | [address] | [address] | | + + + + + documented in this encounter Visit Diagnoses + + | Diagnosis | + + | Chest pain - Primary Chest pain, unspecified | + + | Bradycardia Other specified cardiac dysrhythmias | + + | Pacemaker Cardiac pacemaker in situ | + + documented in this encounter
--- OUTSIDE RECORDS SUMMARY | ~2020-06-07 | XMS | Encounter Summary ---
Demographics + + + | Address | [address] | | | [place] [address] | + + + | Home Phone [...] Providers + +------+ + | Care Coal Cager Name | Role | Phone | + +------+ + PCP | Unavailable | + +------+ + Encounter Details +--------+ + + + + | Date | Type | Department | Care Team | Description | +--------+ + + + + | 06/03/ | Hospital | [facility] | | | | 2008 | Encounter | MED CTR EMERGENCY | | | | | | [address] | | | | | | [place] | | | | | | [address] | | | | | | [phone] | | | +--------+ + + + [...] | | | | | | [place] [address] | | | | | | [phone] | | | | | | | | +--------+ + + + + documented as of this encounter Visit Diagnoses Not on filedocumented in this encounter"
--- OUTSIDE RECORDS SUMMARY | ~2020-06-07 | XMS | Encounter Summary ---
Demographics + + + | Address | [address] | | | [place] [address] | + + + | Home Phone [...] Providers + +------+ + | Care Environmental Field Services Technician Name | Role | Phone | [...] | | | lumbar | B | [place] | | | | | Chronic | [place], [place] | [place], | | | | | left-sided | [address] | [place] [address] | | | | | low back | Phone: | Phone: | | | | | pain with | [phone] | [phone] | | | | | left-sided | Fax: | Fax: | | | | | sciatica | [phone] | [phone] | | | | | History of [...] Closed | | Radiology | Diagnoses | [place], | [address] | | | | | DDD | Scotty C, LOG HAUL OPERATOR | [address] [place] | | | | | (degenerativ | [address] | [place], | | | | | e disc | [place] | [place] [address] | | | | | disease), | DRIVE [address] | Phone: | | | | | lumbar | B | [phone] | | | | | Chronic | [place], [place] | Fax: | | | | | left-sided | [address] | [phone] | | | | | low back | Phone: | | | | | | pain with | [phone] | | | | | | left-sided | Fax: | | | | | | sciatica | [phone] | | | | | | History [...] + + | 07/01/ | Hospital | [facility] | Scotty Galdamez, | DDD (degenerative | | 2018 | Encounter | MED [facility] [address] | LOG [address]UL OPERATOR [address] | disc disease), | | | | [place], | [address] | lumbar; Chronic | | | | [place] [address] | [place] [address] | left-sided low back | | | | [phone] | [phone] | pain with left-sided | | | [...] + + + +---------+ + + | [place]-3 Fatty | CAPS, one capsule by | [...] 2019 | Visit | | PA[facility] [place] [address] | | | | | | [place], | | | | | | [place] [address] | | | | | | [phone] | | | | | | | [...]
--- OUTSIDE RECORDS SUMMARY | ~2020-06-07 | XMS | Encounter Summary ---
Demographics + + + | Address | [address] | | | [place] [address] | + + + | Home Phone [...] Providers + +------+ + | Care Veterinary Parasitologist Name | Role | Phone | + +------+ + PCP | Unavailable | + +------+ + Encounter Details +--------+ + + + + | Date | Type | Department | Care Team | Description | +--------+ + + + + | 05/28/ | [facility] | [facility] | Evan Gandara MD | | | 2008 | Encounter | MED CTR LABORATORY | [address] [facility] | | | | | [address] | [place] | | | | | [place] | [address] | | | | | [address] | | | | | | [phone] | | | +--------+ + + + [...] | | | | | | [place] [address] | | | | | | [phone] | | | | | | | | +--------+ + + + + documented as of this encounter Visit Diagnoses Not on filedocumented in this encounter"
--- OUTSIDE RECORDS SUMMARY | ~2020-06-07 | XMS | Encounter Summary ---
Demographics + + + | Address | [address] | | | [place] [address] | + + + | Home Phone [...] Providers + +------+ + | Care Sales Effectiveness Manager Name | Role | Phone | + +------+ + | Kirk French MD | PCP | | + +------+ + Reason for Visit + +--------+ + | Reason | Onset | Comments | | | Date | | + +--------+ + | Lab Order | 06/24/ | | | | 2018 | | + +--------+ + Encounter Details +--------+ + + + + | Date | Type | Department | Care Team | Description | +--------+ + + + + | 06/24/ | Telephone | [facility] | Daljit Singletary, | Lab Order | | 2018 | | CARDIOLOGY [address] | | | | | [place], | [place], | | | | | [place] [address] | [place] [address] | | | | | [phone] | [phone] | | | | | | | [...] Telephone Encounter - Darlene Tirado RN - 06/24/2018 3:54 PM PDTOrder done ............ ...............................Darlene Tirado RN on 06/24/18 at 15:54 elephone Encounter - Rachel Carrasquillo Environmental Scientist - 06/24/2018 3:42 PM PDTPatient is needing a fasting L ipid panel drawn. Voicemail not yet set up. Electronically signed by Rachel Carrasquillo Environmental Scientist at 01/2018 3:42 PM PDTdocumented in this encounter Plan of [...] W | | | | | | [place], | | | | | | [place] [address] | | | | | | [phone] | | | | | | | [...] 06/24/2018, Expires: | | | | | yankton coronary | 06/24/2019 | | | | | artery of [place]ankton | | | | | | heart without angina | | | | | | pectoris | | | | | | Hyperlipidemia, | | | | | | mixed | | + +------+--------+ + + documented as of this encounter Visit Diagnoses + + | Diagnosis | + + | Coronary artery disease involving yankton coronary artery of yankton heart without | | angina pectoris - Primary | + + | Hyperlipidemia, mixed Mixed hyperlipidemia | + + documented in this encounter"
--- OUTSIDE RECORDS SUMMARY | ~2020-06-07 | XMS | Encounter Summary ---
Demographics + + + | Address | [address] [place] [address] [address] | | | [place] [address] | + + + | Home Phone [...] [place] | | | | | [address] | | + + + + + Care Team Providers + +------+ + | Care Hvac Tech Name | Role | Phone | [...] | | 2019 | | Center at [facility] [address] | MD [address] | | | | | [address] [place] | [place], [place] | | | | | for Health and | [address] | | | | | [facility] 2 | [phone] | | | | | [place], [place] | | | | | | [address] | | | | | | [phone] | | | +--------+ + + + [...]
--- OUTSIDE RECORDS SUMMARY | ~2020-06-07 | XMS | Encounter Summary ---
Demographics + + + | Address | [address] | | | [place] [address] | + + + | Home Phone [...] Providers + +------+ + | Care Cardiology Physician Name | Role | Phone | [...] | Palpitations | [address] | | | | | Procedures | [address] | [address] [place] | | | | | ECHO | [place], | [place], [place] | | | | | Complete | [place] [address] | [address] | | | | | | Phone: | Phone: | | | | | | [phone] | [phone] | | | | | | Fax: | Fax: | | | | | | [phone] | [phone] | +--------+--------+ + + + + Encounter Details +--------+ + + + + | Date | Type | Department | Care Team | Description | +--------+ + + + + | 12/30/ | Hospital | [facility] | SunshinecherelleDaljit, | Palpitations | | 2012 - | Encounter | MED CTR XRAY [address] | | | | | [address] [place] | [place], | | | 01/01/ | | [place] [address] | [place] [address] | | | 2012 | | [phone] | | | | | | | [...] | | | | | | [place] [address] | | | | | | [phone] | | | | | | | [...] | [facility] | [place] | | Department [address] [place] [address] | [facility] | | [ rep [address]] [ rep ct [facility] [place] | | st zip] Signed | - IMAGING | | | | | Patient Name: MOE GAY W | | | Physician: MIGUELINA : 1960 Age: 52 Sex: M Unit | | | #: [id number] Exam Date: 12/30/12 Location: | | | G Report #: [id number] Page: | | | %(RAD)RES..mtdd.print.filter("pg") of %(RAD) | | | RES..mtdd.print.filter("tpg") | | | | | | Accession Number: [id number] | | | E C H O C A R D I O G R A P H Y R E P O R T | | | HEIGHT: 76" WEIGHT: 270# | | | ORANGE PICKER MACHINE OPERATOR: JAMEEL REFERRING DR: TIMMY DRAKE [...] | | | Transcribed Date/Time: 12/30/2012 16:34 Outside Repairer Special: | | | <<Signature on File>> | | | Suwong | | | MD CLEOPATRA Singletary FAS01/02/13 0955 <Electronically signed by | | | Daljit Singletary MD, [facility], FACP, FASNanette, FASNC> Daljit | | | MD CLEOPATRA [facility]ary [facility] 12/30/12 1608 Outside Repairer Special: Workboardkaryx | | | [id number]/08/13 1634 Daljit Singletary MD FACC | | | FASE | | + + + + + + + + | Performing | Address | City/State/Zipcode | Phone Number | | Organization | | | | + + + + + | [facility] | [address] | [place] | [phone] | | [facility] | | [address] | | | - IMAGING | | | | + + + + + documented in this encounter Visit Diagnoses + + | Diagnosis | + + | Palpitations | + + documented in this encounter
--- OUTSIDE RECORDS SUMMARY | ~2020-06-07 | XMS | Encounter Summary ---
Demographics + + + | Address | [address] | | | [place] [address] | + + + | Home Phone [...] Providers + +------+ + | Care Assistant Finance Director Name | Role | Phone | [...] + + | 01/05/ | Office | [facility] | Silvia, | Pacemaker - | | 2017 | Visit | CARDIOLOGY [address] | PARISA [place] [address] | [employer] - [id number] | | | | [place], | [place], | [place] | | | | [place] [address] | [place] [address] | 06/14/2009 (Primary | | | | [phone] | [phone] | Dx); Chest pain, | | | [...] involving | | | | | | [place] coronary | | | | | | artery of [place] | | | | | | heart [...] of non-critical coronary artery d isease involving [place] coronary artery of [place] heart without angina pectoris, essential h ypertension, [...] pain. He went to the ER in [place] because th e NTG didn't relieved the pain. He was diagnosed with bronchitis. Otherwise he has had no ot her symptoms. He has had a good energy level. He tries to stay active. He has joined a [employer] gym and trying to exercise more often. [...] Preventative health care Coronary artery disease involving [place] coronary artery of [place] heart without angina pectoris Cannabis abuse, daily [...] 3RD DOSE, CALL 911 100 tablet 3 [place]-3 Fatty Acids (SALMON OIL-1000 PO) CAPS, one [...] 131 (A) 10/18/2017 I reviewed records from [facility] for office visit on 01/2017 whic [...] overload. 2. Non-critical Coronary artery disease involving [place] coronary a rtery of omaha heart without angina pectoris: A. Normal exercise [...] completely be ruled out . D. [facility] 12/25/13, shows non critical [...] go back in 3 days to [place] for an attempt of ablation under general [...] device function. Estimated remaining [facility] longevity is 3.5 years.. 5. [...] this chart may have been created with [employer] voice recognition software. Occasi onal wrong-word or [...] W | | | | | | [place], | | | | | | [place] [address] | | | | | | [phone] | | | | | | | [...] involving | | | | | | [place] coronary | | | | | | artery of [place] | | | | | | heart [...] SYDNI | | | | | | ([id number]) on 01/06/2018 | | | | | [...] Coronary artery disease involving [place] coronary artery of o[place] heart without | | angina pectoris | + + | Hyperlipidemia, mixed Mixed hyperlipidemia | + + | Hypertension, unspecified type | + + | Syncope, unspecified syncope type | + + | Ascending thoracic aortic aneurysm (HCC) Thoracic aneurysm without mention of rupture | + + documented in this encounter
--- OUTSIDE RECORDS SUMMARY | ~2020-06-07 | XMS | Encounter Summary ---
Demographics + + + | Address | [address] | | | [place] [address] | + + + | Home Phone [...] Team Providers + +------+ + | Care Deli/Bakery Associate Name | Role | Phone | [...] 2019 | | GASTROENTEROLOGY | [address], [place] | | | | | [address] [place] | [address] [place], [place] | | | | | [address] [place], [place] | [address] | | | | | [address] | | | | | | [phone] | | | +--------+ + + + [...] with plan to go to ER in [place].......... ..................................Kasie Ashley RN on 12/29/18 at 15:39 [...] | | | | | | [place] [address] | | | | | | [phone] | | | | | | | | +--------+ + + + + documented as of this encounter Visit Diagnoses Not on filedocumented in this encounter"
--- OUTSIDE RECORDS SUMMARY | ~2020-06-07 | XMS | Encounter Summary ---
Demographics + + + | Address | [address] | | | [place] [address] | + + + | Home Phone [...] + | 11/02/ | Telephone | [facility] | Daljit Singletary, | Other | | 2015 | | [facility] [address] | [address] [place] | | | | | [place], | [place], | | | | | [place] [address] | [place] [address] | | | | | [phone] | [phone] | | | | | | | [...] us know so we can check with aircraft mechanic armament to confirm and we will have learned helpful new information. ...........................................PARISA Peryera on 11/03/16 at 15:49 Electronically signed by [...] | | | | | | [place] [address] | | | | | | [phone] | | | | | | | | +--------+ + + + + documented as of this encounter Visit Diagnoses Not on filedocumented in this encounter"
--- OUTSIDE RECORDS SUMMARY | ~2020-06-07 | XMS | Encounter Summary ---
Demographics + + + | Address | [address] [place] [address] [address]O | | | [place] [address] | + + + | Home Phone [...] [place] | | | | | [address] | | + + + + + Care Team Providers + +------+ + | Care Mechanical Drawing Teacher Name | Role | Phone | [...] | | [address] | [place], [place] | | | | | for Health and | [address] | | | | | [facility], [facility] | [phone] | | | | | [place], [place] | | | | | | [address] | | | | | | [phone] | | | +--------+ + + + [...]
--- OUTSIDE RECORDS SUMMARY | ~2020-06-07 | XMS | Encounter Summary ---
Demographics + + + | Address | [address] | | | [place] [address] | + + + | Home Phone [...] Team Providers + +------+ + | Care Ethnoarchaeologist Name | Role | Phone | + [...] [place] | | | | | | [address] | [address] Phone: | | | | | | Phone: | [phone] | | | | | | [phone] | Fax: | | | | | | Fax: | [phone] | | | | | | [phone] | | +--------+ + + + + [...] | diurnal enuresis | | | | [place], [place] | [place], [place] | (Primary Dx); BPH | | | | [address] | [address] | with | | | | [phone] | | obstruction/lower | | | | [...] H e states that the surgeon in [place] who performed his neck surgery is no longer practicing a nd was apparently disciplined and had his license revoked by the [facility]. He has us ed marijuana for his [...] needed for Chest pain. 25 tablet 12 [place]-3 Fatty Acids (SALMON OIL-1000 PO) CAPS, one [...] Date/Time: 04/22/2012 16:56 Transcribed Date/Time: 04/22/2012 17:32 Information Technology Coordinator: <Electronically Signed by Jama Solis MD> 04/23/12 [...] well-defined disk interspace at S1-2 and well-developed snigh sverse pro cesses on S1. A posterior [...] Date/Time: 04/23/2012 10:54 Transcribed Date/Time: 04/23/2012 11:06 Information Technology Coordinator: <Electronically Signed by Jama Solis MD> 04/24/12 0729 IMPRESSION: 1. Nocturnal and diurnal enuresis. I [...] bladder, still believe that the recommendations from [facility] neurosurgeon, Dr. 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 CC: Kirk French MD documented in this en counter Procedure Notes ONBASE SCAN [facility] - 12/04/2014 12:00 AM PSTAssociated Order(s): IMAGING REPORT - EXTERNAL SC AN documented in this encount er Miscellaneous Notes Addendum Note - Kira Espinoza RN - 12/05/2014 9:52 AM PST Addended by: BECCA ESPINOZA on: 12/05/2014 09:52 Modules accepted: Orders iscellaneous - ONBASE SCAN [facility] - 12/04/2014 12:00 AM PSTElectronically signed by teresa, [facility] at 5 12:23 PM PSTMiscellaneous - [facility] - 12/04/2014 12:00 AM PSTElectronically kamaljit d by teresa [facility] at 12/29/2014 12:23 PM PSTdocumented in this encounter Plan of Treatment +--------+ + + + + | Date | Type | Specialty | Care Team | Description | +--------+ + + + + | 10/30/ | Procedure | Cardiology | | | | 2019 | visit | | | | +--------+ + + + + | 10/30/ | Office | Cardiology | Sivlia, | | | 2019 | Visit | | PARISA [place] [address] | | | | | | [place], | | | | | | [place] [address] | | | | | | [phone] | | | | | | | [...] 1.001 - 1.030 | | | | [place], | | | | | | [facility], [...]
--- OUTSIDE RECORDS SUMMARY | ~2020-06-07 | XMS | Encounter Summary ---
Demographics + + + | Address | [address] | | | [place] [address] | + + + | Home Phone [...] + | 08/06/ | Telephone | [facility] | Geri Angel, | Other (issues with | | 2014 | | CARDIOLOGY [address] | UPPER DOUBLER [address] [place] | edema and chest | | | | [place], | [place], [place] | pain) | | | | [place] [address] | [address] | | | | | [phone] | | | +--------+ + + + [...] | | | | | | [place] [address] | | | | | | [phone] | | | | | | | | +--------+ + + + + documented as of this encounter Visit Diagnoses Not on filedocumented in this encounter"
--- OUTSIDE RECORDS SUMMARY | ~2020-06-07 | XMS | Encounter Summary ---
Demographics + + + | Address | [address] | | | [place] [address] | + + + | Home Phone [...] Providers + +------+ + | Care Office Machine Service Supervisor Name | Role | Phone [...] + + | 09/01/ | Office | [facility] | Silvia, | Ascending thoracic | | 2015 | Visit | CARDIOLOGY [address] | PARISA [address] | aortic aneurysm | | | | [place], | [place], | ([facility]) (Primary Dx); | | | | [place] [address] | [place] [address] | Coronary artery | | | | [phone] | [phone] | disease involving | | | | | | [place] coronary | | | | | | artery of [place] | | | | | | heart [...] of non-critical coronary artery d isease involving [place] coronary artery of [place] heart without angina pectoris, essential h [...] episode of chest pain while nelly ng [facility], so he took some sublingual nitroglycerin [...] Preventative health care Coronary artery disease involving [place] coronary artery of [place] heart without angina pectoris Cannabis abuse, [...] every evening 90 tablet 3 [facility] [...] 3rd dose, call 911 100 tablet 3 [place]-3 Fatty Acids (SALMON OIL-1000 PO) CAPS, one [...] 129* 05/12/2016 I reviewed records from [facility] for office visit on 06/2016 whi [...] He is in class II of the [employer] functional class. On physical examination there are no signs of fluid overload. The plan will be to lose weight, modify portion control, start exercising, limit sodium in take and we will start losartan 25 mg once a day with a close monitoring of blood pressure. 2. Non-critical Coronary artery disease involving [place] coronary artery of [place] heart [facility] angina pectoris: [...] attenuation cannot completely be ruled out. [facility] 12/25/13, shows non [...] to go back in 3 days to [place] for an attempt of ablation under general [...] pacemaker implantation on 06/14/[address] Daljit amsters. C. Today his device interrogation shows no [...] this chart may have been created with [employer] voice recognition software. Occasi onal wrong-word or [...] | | | | | | [place], | | | | | | [place] [address] | | | | | | [phone] | | | | | | | [...] + + | Coronary artery disease involving [place] coronary artery of [place] heart without | | angina pectoris | + + | Essential hypertension with goal blood pressure less than 130/80 | + + | Hyperlipidemia, mixed Mixed hyperlipidemia | + + documented in this encounter
--- OUTSIDE RECORDS SUMMARY | ~2020-06-07 | XMS | Encounter Summary ---
Demographics + + + | Address | [address] | | | [place] [address] | + + + | Home Phone [...] Team Providers + +------+ + | Care Chairperson Anesthesiology Name | Role | Phone | + [...] Refill | | 2013 | | [facility] [place] | DO [address] | | | | | [address] | [place] | | | | | [place], [place] | [address] | | | | | [address] | | | | | | [phone] | | | +--------+--------+ + + + [...] | | | | | | [place] [address] | | | | | | [phone] | | | | | | | | +--------+ + + + + documented as of this encounter Visit Diagnoses Not on filedocumented in this encounter"
--- OUTSIDE RECORDS SUMMARY | ~2020-06-07 | XMS | Encounter Summary ---
Demographics + + + | Address | [address] | | | [place] [address] | + + + | Home Phone [...] + +------+ + | Care Aircraft Systems Technician Name | Role | Phone | [...] | | | | [place] | [phone] | | | | | [address] | | | | | | [phone] | | | +--------+ + + + [...] | | | | | | | #[id number], exp 07/2016 | | | | | [...] | | | | | [place], | | | | | | [place] [address] | | | | | | [phone] | | | | | | | [...]
--- OUTSIDE RECORDS SUMMARY | ~2020-06-07 | XMS | Encounter Summary ---
Demographics + + + | Address | [address] | | | [place] [address] | + + + | Home Phone [...] Providers + +------+ + | Care Cash Analyst Name | Role | Phone | + +------+ + PCP | Unavailable | + +------+ + Encounter Details +--------+ + + + + | Date | Type | Department | Care Team | Description | +--------+ + + + + | 05/02/ | [facility] | [facility] | Jonathan, | | | 2009 | Encounter | MED CTR EMERGENCY | Martell Cr MD [address] | | | | | CENTER [address] | [address] | | | | | [place] | [place] [address] | | | | | [address] | [phone] | | | | | [phone] | | | +--------+ + + + [...] | | | | | | [place] [address] | | | | | | [phone] | | | | | | | | +--------+ + + + + documented as of this encounter Visit Diagnoses Not on filedocumented in this encounter"
--- OUTSIDE RECORDS SUMMARY | ~2020-06-07 | XMS | Encounter Summary ---
Demographics + + + | Address | [address] [place] [address] [address] LOZ[address]O | | | [place] [address] | + + + | Home Phone [...] [place] | | | | | [address] | | + + + + + Care Team Providers + +------+ + | Care Bottle And Glass Inspector Name | Role | Phone | [...] | | | | | unspecified | [address] | | | | | | type Rectal | Ave | | | | | | bleeding | [facility] [place] | | | | | | Procedures | [address] | | | | | | CONSULT TO | Phone: | | | | | | GASTROENTERO | [phone] | | | | | | LOGY | Fax: | | | | | | | [phone] | | + +--------+ + + + [...] | | | | | Procedures | [place], [place] | [facility] and | | | | | CONSULT TO | [address] | Healing, | | | | | ENDOSCOPY | Phone: | Building 2 | | | | | UNIT: SM | [phone] | [place], [place] | | | | | BOWEL | Fax: | [address] | | | | | CAPSULE | [phone] | Phone: | | | | | ENDOSCOPY | | [phone] | | | | | | | Fax: | | | | | | | [phone] | + +--------+ + + + + [...] | | | | | bleeding | [place], [place] | [facility] and | | | | | Procedures | [address] | Healing, | | | | | CONSULT TO | Phone: | Building 2 | | | | | ENDOSCOPY | [phone] | [place], [place] | | | | | UNIT: | Fax: | [address] | | | | | COLONOSCOPY | [phone] | Phone: | | | | | | | [phone] | | | | | | | Fax: | | | | | | | [phone] | +--------+--------+ + + + + Reason [...] | | 2020 | | Center at [facility] [address] | MD [address] | | | | | [address] | [place], [place] | | | | | for Health and | [address] | | | | | Healing, Building [address] | [phone] | | | | | [place], [place] | | | | | | [address] | | | | | | [phone] | | | +--------+ + + + [...]
--- OUTSIDE RECORDS SUMMARY | ~2020-06-07 | XMS | Encounter Summary ---
Demographics + + + | Address | [address] | | | [place] [address] | + + + | Home Phone [...] + +------+ + | Care Optical Effects Layout Person Name | Role | Phone | [...] + + | 01/25/ | Office | [facility] | Daljit Singletary, | Other chest pain | | 2012 | Visit | CARDIOLOGY [address] | [address] | (Primary Dx); PVC's | | | | [place], | [place], | (premature | | | | [place] [address] | [place] [address] | ventricular | | | | [phone] | [phone] | contractions) | | | | | [...] as been feeling tired. Of note, lorraine paintign has appointment to see oncology rep specialist for PVCs ablations consultation on January [...] tablet Take 1,000 mg by mouth Daily. [place]-3 Fatty Acids (SALMON OIL-1000 PO) CAPS, one [...] tablet Take 1,000 mg by mouth Daily. [place]-3 Fatty Acids (SALMON OIL-1000 PO) CAPS, one [...] | | | | | | [place] [address] | | | | | | [phone] | | | | | | | [...]
--- OUTSIDE RECORDS SUMMARY | ~2020-06-07 | XMS | Encounter Summary ---
Demographics + + + | Address | [address] | | | [place] [address] | + + + | Home Phone [...] Providers + +------+ + | Care Host/Hostess Restaurant Name | Role | Phone | [...] + | 06/23/ | Telephone | [facility] | Michael Amanda, | No Show | | 2012 | | [facility] [place] | DO [address] | | | | | [address] | [place], [place] | | | | | [place], [place] | [address] | | | | | [address] | | | | | | [phone] | | | +--------+ + + + [...] | | | | | | [place] [address] | | | | | | [phone] | | | | | | | | +--------+ + + + + documented as of this encounter Visit Diagnoses Not on filedocumented in this encounter"
--- OUTSIDE RECORDS SUMMARY | ~2020-06-07 | XMS | Encounter Summary ---
Demographics + + + | Address | [address] | | | [place] [address] | + + + | Home Phone [...] Providers + +------+ + | Care Systems Applications Programming Lead Name | Role | Phone | + +------+ + PCP | Unavailable | + +------+ + Encounter Details +--------+ + + + + | Date | Type | Department | Care Team | Description | +--------+ + + + + | 10/13/ | Hospital | [facility] | | | | 2007 | Encounter | MED CTR EMERGENCY | | | | | | [address] | | | | | | [place] | | | | | | [address] | | | | | | [phone] | | | +--------+ + + + [...] | | | | | | [place] [address] | | | | | | [phone] | | | | | | | | +--------+ + + + + documented as of this encounter Visit Diagnoses Not on filedocumented in this encounter"
--- OUTSIDE RECORDS SUMMARY | ~2020-06-07 | XMS | Encounter Summary ---
Demographics + + + | Address | [address] | | | [place] [address] | + + + | Home Phone [...] Team Providers + +------+ + | Care Agency Development Manager Name | Role | Phone [...] | 09/20/ | Refill | [facility] | Michael Amanda, | Medication Refill | | 2011 | | [facility]IC[facility] [place] | DO [address] | | | | | [address] | [place] | | | | | [place], [place] | [address] | | | | | [address] | | | | | | [phone] | | | +--------+--------+ + + + [...] that prescription was sent to [facility] in [place]. elephone Encounter - Michael Amanda DO - [...] strips. He is requesting prescription sent to [facility] in [place] for these. He said Medicare will pay [...] | | | | | | [place] [address] | | | | | | [phone] | | | | | | | | +--------+ + + + + documented as of this encounter Visit Diagnoses + + | Diagnosis | + + | Hypoglycemia - Primary Hypoglycemia, unspecified | + + documented in this encounter"
--- OUTSIDE RECORDS SUMMARY | ~2020-06-07 | XMS | Encounter Summary ---
Demographics + + + | Address | [address] | | | [place] [address] | + + + | Home Phone [...] Providers + +------+ + | Care Upholstery Cutter Name | Role | Phone | [...] AVE | | | | | [facility] | [place], [place] | | | | | [place], [place] | [address] | | | | | [address] | | | | | | [phone] | | | +--------+ + + + [...] | | | | | | [place] [address] | | | | | | [phone] | | | | | | | | +--------+ + + + + documented as of this encounter Visit Diagnoses Not on filedocumented in this encounter"
--- OUTSIDE RECORDS SUMMARY | ~2020-06-07 | XMS | Encounter Summary ---
Demographics + + + | Address | [address] | | | [place] [address] | + + + | Home Phone [...] + +------+ + | Care Journeyman Electrician Name | Role | Phone | + +------+ + PCP | Unavailable | + +------+ + Encounter Details +--------+ + + + + | Date | Type | Department | Care Team | Description | +--------+ + + + + | 12/16/ | Hospital | [facility] | | | | 2010 | Encounter | MED CTR LABORATORY | | | | | | [address] | | | | | | [place] | | | | | | [address] | | | | | | [phone] | | | +--------+ + + + [...] | | | | | | [place] [address] | | | | | | [phone] | | | | | | | | +--------+ + + + + documented as of this encounter Visit Diagnoses Not on filedocumented in this encounter"
--- OUTSIDE RECORDS SUMMARY | ~2020-06-07 | XMS | Encounter Summary ---
Demographics + + + | Address | [address] | | | [place] [address] | + + + | Home Phone [...] Providers + +------+ + | Care Welder Machine Operator Name | Role | Phone [...] + + | 06/06/ | Office | [facility] | Silvia, | Essential | | 2019 | Visit | CARDIOLOGY [address] | PARISA [place] [address] | hypertension | | | | [place], | [place], | (Primary Dx); | | | | [place] [address] | [place] [address] | Sinoatrial node | | | | [phone] | [phone] | dysfunction (HCC) | | | | | | with symptomatic | | | | | | bradycardia; | | | | | | Symptomatic PVCs; | | | | | | Tachycardia; | | | | | | Coronary artery | | | | | | disease involving | | | | | | torres martinez coronary | | | | | | artery of torres martinez | | | | | | heart [...] encounter Patient Instructions Patient Instructions Julia Allen, Second Mate - 06/06/2019 2:15 PM PDT1. Take a [...] of -critical coronary artery dise ase involving torres mart[place] coronary artery of torres martinez heart without angina pectoris, essential hype rtension, [...] at [facility] in [place] due to chest pain, no medication changes at that time. On 06/02/2019 he was seen here in the [facility] department with chest pain, irregular heart [...] Preventative health care Coronary artery disease involving torres martinez coronary artery of torres martinez heart without angina pectoris Cannabis abuse, daily [...] 3RD DOSE, CALL 911 100 tablet 3 [place]-3 Fatty Acids (SALMON OIL-1000 PO) CAPS, one capsule by mouth daily twice daily ondansetron (ZOFRAN ODT) 4 mg disintegrating tablet Take 4 mg by mouth every 8 hours as needed for Nausea. ONE TOUCH DELICA LANCETS [facility] [...] I reviewed reports from [facility]: Ct Abdomen Pelvis W Contrast Result [...] ASSESSMENT: 1. Non-critical Coronary artery disease involving torres martinez coronary artery of torres martinez heart [facility] angina pectoris: A.Normal exercise sestamibi stress test [...] performed by Dr Juan Diego Gambino at [facility] on 01/30/2013.Patient had spontaneous PVC'sfr [...] to go back in 3 days to [place] for an attempt of ablation under general [...] visit, or sooner with concerns. Julia Clemente, Second Mate am acting as a scribe on behalf of, and in the presenc e of PARISA Lomas. - Julia Allen, Second Mate 06/06/2019 15:10 IJaneen ARNP, personally performed the services described in this documentati on, as scribed in my presence and it is both accurate and complete. -PARISA Lomas 06/06/2019 Portions of this chart may have been created with [employer] voice recognition software. Occasi onal wrong-word or [...] | | | | | | [place] [address] | | | | | | [phone] | | | | | | | [...] MD | | | | | | ([id number]) on 06/06/2019 | | | | | [...] + + | Coronary artery disease involving torres martinez coronary artery of torres martinez heart without | | angina pectoris | + + | Syncope, unspecified syncope type | + + | Ascending thoracic aortic aneurysm (HCC) Thoracic aneurysm without mention of rupture | + + | Hyperlipidemia, mixed Mixed hyperlipidemia | + + documented in this encounter
--- OUTSIDE RECORDS SUMMARY | ~2020-06-07 | XMS | Encounter Summary ---
Demographics + + + | Address | [address] | | | [place] [address] | + + + | Home Phone [...] Providers + +------+ + | Care Windows Infrastructure Engineer Name | Role | Phone | [...] | | | CENTER [address] | [place], [place] | insufficiency | | | | [place], [place] | [address] | | | | | [address] | | | | | | [phone] | | | +--------+ + + + [...] sent through Care Everywhere.PERIPHERAL KENYETTA Cr, MAMADOU (CROATIAN)documented in this encounter Medications at Time of [...] + + + +---------+ + + | Ald[place]-3 Fatty | CAPS, one capsule by | [...] | | | | | | | #[id number], exp 07/2016 | | | | | [...] Montoya MD - 08/23/2015 7:22 PM PDT [facility] Moe Sanchez Emergency Department Encounter Note [address] [place] [address] PCP:Kirk French MD [phone] CHIEF COMPLAINT: Leg swelling HPI Moe Sanchez is a 55 y.o. male who presents to the Emergency Department who has been having bilateral leg swelling this been ongoing since a recent trip to [facility]. He's not had chest pain or increasing shortness of breath. He had some increased pain in the leg s and noticed redness of both legs. He was seen at 2 different hospitals in [facility] to have the leg evaluated. He [...] | | | | | [place], | | | | | | [place] [address] | | | | | | [phone] | | | | | | | | +--------+ + + + + documented as of this encounter Visit Diagnoses + + | Diagnosis | + + | Peripheral edema - Primary Edema | + + | Venous insufficiency Unspecified venous (peripheral) insufficiency | + + documented in this encounter
--- OUTSIDE RECORDS SUMMARY | ~2020-06-07 | XMS | Encounter Summary ---
Demographics + + + | Address | [address] | | | [place] [address] | + + + | Home Phone [...] Providers + +------+ + | Care Mill Attendant Name | Role | Phone | [...] | 10/01/ | Telephone | [facility] | Mary Bradshaw | Foot Pain | | 2013 | | CARE [address] | Guy Larkin MD | | | | | [address] | [address] | | | | | [address] | [address] | | | | | [phone] | [address] | | | | | | | [...] Romero Cert MA - 10/01/2014 5:08 PM [facility] pain clinic called to verify if [...] | | | | | | [place] [address] | | | | | | [phone] | | | | | | | | +--------+ + + + + documented as of this encounter Visit Diagnoses Not on filedocumented in this encounter"
--- OUTSIDE RECORDS SUMMARY | ~2020-06-07 | XMS | Encounter Summary ---
Demographics + + + | Address | [address] | | | [place] [address] | + + + | Home Phone [...] Results | | 2013 | | MEDIC[facility] [place] | DO [address] | | | | | [address] | [place], [place] | | | | | [place], [place] | [address] | | | | | [address] | | | | | | [phone] | | | +--------+ + + + [...] | | | | | | [place] [address] | | | | | | [phone] | | | | | | | | +--------+ + + + + documented as of this encounter Visit Diagnoses Not on filedocumented in this encounter"
--- OUTSIDE RECORDS SUMMARY | ~2020-06-07 | XMS | Encounter Summary ---
Demographics + + + | Address | [address] | | | [place] [address] | + + + | Home Phone [...] Providers + +------+ + | Care Digital Marketer Name | Role | Phone | [...] | | | | CENTER [address] | [address] [place] | | | | | [place], [place] | [place] [address] | | | | | [address] | [phone] | | | | | [phone] | | | +--------+ + + + [...] sent through Care Everywhere.Diarrhea, Unkno wn Cause (Greenlandic)documented in this encounter Medications at Time [...] + + +---------+ + + | [place]-3 Fatty | CAPS, one capsule by [...] | | | | | | [place] coronary | | | | | | | artery of [place] | | | | | | | [...] might be differ ent from the original. [facility] Moe Sanchez Emergency Department Encounter Note [address] [place] [address] PCP:Kirk French MD [phone] History ED Triage [...] wasn't treated. 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; Tehnologii obratnyh zadachtronic Peptic ulcer disease Premature ventricular contraction Preventative [...] CV LHC; Surgeon: Daljit Singletary MD; Location: [facility] CV LAB CARDIAC CATHERIZATION N/A 01/25/2019 Procedure: CV Cor Angio; Surgeon: Daljit Singletary MD; Location: [facility] CV LAB COLONOSCOPY N/A 12/24/2017 Procedure: COLONOSCOPY; Surgeon: Emmanuel Daniel MD; Location: [facility] MEDICAL PROCEDURE UNIT COLONOSCOPY N/A 01/05/2019 Procedure: COLONOSCOPY; Surgeon: Emmanuel Daniel MD; Location: [facility] MEDICAL PROCEDURE UNIT EGD 12/24/2017 HARDWARE REMOVAL KNEE ARTHROSCOPY Bilateral KNEE SURGERY 2004 meniscus-right LAMINECTOMY 1991 L3-4 LUMBAR DISCECTOMY 1991 L3-4 LUMBAR FUSION 01/2011 6 spine fusions NECK SURGERY NECK SURGERY 08/10/2012 Fusion. [place], OR PACEMAKER PLACEMENT 06/14/2009 Medtronic ROTATOR CUFF REPAIR Bilateral 03/22/2013 SINUS SURGERY 1998 SPINAL FUSION STOMACH SURGERY UPPER GASTROINTESTINAL ENDOSCOPY N/A 12/24/2017 Procedure: EGD; Surgeon: Emmanuel Daniel MD; Location: [facility] MEDICAL PROCEDURE UNIT UPPER GASTROINTESTINAL ENDOSCOPY N/A 01/05/2019 Procedure: EGD; Surgeon: Emmanuel Daniel MD; Location: [facility] MEDICAL PROCEDURE UNIT URETEROSCOPY Left 04/13/2019 Procedure: Cystoscopy, Left ureteroscopy with laser lithotripsy, Left ureteral stent place ment; Surgeon: Matthew Uriarte MD; Location: [facility] MAIN OR VASECTOMY Medications: MUTUEL CASHIER Home Medications Medication Sig amLODIPine (NORVASC) 5 [...] NO RELIEF AFTER 3RD DOSE, CALL 911 [place]-3 Fatty Acids (SALMON OIL-1000 PO) CAPS, one capsule by mouth daily twice daily ondansetron (ZOFRAN ODT) 4 mg disintegrating tablet Take 4 mg by mouth every 8 hours as needed for Nausea. ONE TOUCH DELICA LANCETS [facility] Check glucose as needed for hypoglycemia oxyCODONE-acetaminophen [...] | | | | | | [place] [address] | | | | | | [phone] | | | | | | | [...] W?MRN: | | | | | | [id number] | | | [id number] | | | riteri | | | [...] | | | St. | | | [place] | | | y | | [...] | | | St. | | | [place] | | | y | | [...] | | | St. | | | [place] | | | y H. | [...] | | | St. | | | [place] | | | y H. | [...] | | | M.D. | | | Electric Motor Fitter | | | al | | | [...] | | | St. | | | Apoloina | | | Medica | | | [...] | | | ent/60 | | | [id number] | | | -5586- | | | [...] [address] | [place] | [phone] | | [facility] | | [address] | | | - LABORATORY | | [...] [address] | [place] | [phone] | | [facility] | | [address] | | | - LABORATORY | | [...] + | [facility] | [address] | [place] | [phone] | | [facility] | | [address] | | | - LABORATORY | | [...] | | Sensitive | | | [facility] | | | | | [...] [address] | [place] | [phone] | | [facility] | | [address] | | | - LABORATORY | | [...] [address] | [place] | [phone] | | [facility] | | [address] | | | - LABORATORY | | [...] - 1.30 | [facility] | | | | | mg/dL | [facility] | | | | | | MEDICAL | | | | | | CENTER - | | | | | | LABORATORY | | + + + + + + | eGFR if not | >60Comment: GLOMERULAR | >=60 | [facility] | | | | FILTRATION | mL/min/1.73m2 | [facility] | | | HUNGARIAN | RATE,ESTIMATED | | MEDICAL | | | | mL/min/1.44m2Qmio than | | CENTER - | | [...] + | [facility] | [address] | [place] | [phone] | | [facility] | | [address] | | | - LABORATORY | | [...] [address] | [place] | [phone] | | [facility] | | [address] | | | - LABORATORY | | [...] - 1.030 | [facility] | | | [place], | | | [facility] | [...] | [address] | [place] | [phone] | | [facility] | | [address] | | | - LABORATORY | | [...]
--- OUTSIDE RECORDS SUMMARY | ~2020-06-07 | XMS | Encounter Summary ---
Demographics + + + | Address | [address] | | | [place] [address] | + + + | Home Phone [...] Providers + +------+ + | Care Roll Winder Name | Role | Phone | + +------+ + | Michael Amanda DO | PCP | | + +------+ + Encounter Details +--------+ + + + + | Date | Type | Department | Care Team | Description | +--------+ + + + + | 01/30/ | Hospital | [facility] | Jay Gambino MD | | | 2012 - | Encounter | [facility] | [address] | | | | | CARDIAC TELEMETRY | [address] [place], | | | 01/31/ | | [address] | [place] [address] | | | 2012 | | [place] | [phone] | | | | | [address] | | | | | | [phone] | | | +--------+ + + + [...] 1960 ADMISSION DATE: 01/30/2013 DISCHARGE DATE: 01/31/2013 [id number] / [id number] ADMITTING DIAGNOSES: 1. Symptomatic PVCs. 2. Sinus [...] 150, 1 to 2 tabs daily. 10. [place]-3 fatty acids 1000 mg b.i.d. MOE GAY ADM:01/30/13 [id number] 01/31/13 [place] DISCHARGE SUMMARY [id number] [facility] LAKESHIA Barlow [facility] MD Meena Pleitez THIS REPORT IS CONFIDENTIAL AND NOT TO BE RELEASED WITHOUT PROPER AUTHORIZATION. [facility] 11. Valacyclovir 500 mg daily. B. New medication added: Diltiazem CD 180 a day. FOLLOWUP: The patient has a followup appointment on 03/02/2013 at 10:[address] Niles meza at the [facility] [place], [address]. No heavy lifting or driving times 48 hours. YOANA Barlow MD A P NL/[facility] #[id number] cc: MD Carmela Pleitez PA-C Electronically Signed 02/06/13 1616 LAKESHIA Barlow Electronically Signed 02/20/13 0731 Jay Gambino MD MOE GAY ADM:01/30/13 [id number] 01/31/13 [place] DISCHARGE SUMMARY [id number] [facility] LAKESHIA Barlow [facility] Jay Gambino MD R THIS REPORT IS CONFIDENTIAL AND NOT TO BE RELEASED WITHOUT PROPER AUTHORIZATION.Sandya lly signed by Jael Brown at 02/20/2013 7:31 AM Carmela Cramer - 02/01/20 13 8:44 AM PDT PATIENT NAME: MOE GAY Sex/Age: M / 52Y : 1960 ADMISSION DATE: 01/30/2013 DISCHARGE DATE: 01/31/2013 [id number] / [id number] ADMITTING DIAGNOSES: 1. Symptomatic PVCs. 2. Sinus [...] 150, 1 to 2 tabs daily. 10. [place]-3 fatty acids 1000 mg b.i.d. MOE GAY ADM:01/30/13 [id number] 01/31/13 [place] DISCHARGE SUMMARY [id number] [facility] LAKESHIA aBrlow [facility] MD Meena Pleitez THIS REPORT IS CONFIDENTIAL AND NOT TO BE RELEASED WITHOUT PROPER AUTHORIZATION. [facility] 11. Valacyclovir 500 mg daily. B. New medication added: Diltiazem CD 180 a day. FOLLOWUP: The patient has a followup appointment on 03/02/2013 at 10:[address] Niles meza at the [facility] [place], [address]. No heavy lifting or driving times 48 hours. YOANA Barlow MD A P NLV/[facility] #[id number] cc: MD Carmela Pleitez PA-C Electronically Signed 02/06/13 1616 LAKESHIA Barlow MOE GAY ADM:01/30/13 [id number] 01/31/13 [place] DISCHARGE SUMMARY [id number] [facility] LAKESHIA Barlow [facility] MD Meena Pleitez THIS REPORT [...] + + +---------+ + + | [place]-3 Fatty | CAPS, one capsule by | [...] GAY Sex/Age: M / 52Y : 1960 [facility]: Jay Gambino MD DATE: 01/30/2013 PROCEDURE: 1. [...] In the right femoral vein an 8 Iraqi, 7 Iraqi and 6 Iraqi sheaths were placed, in the right femoral artery an 8 Iraqi sheath was placed. At baseline, the patient was in atrially paced rhythm programmed to AAIR/DDDR at a lower rate limit of 70 beats per minute. Prior to the procedure I reprogrammed his device to AAI at a lower rate limit of 60. His NE interval was 150 ms, QRS 92 ms, [...] access was directed more MOE GAY ADM:10/04 [id number] 01/31/13 [place] CARDIAC PROCEDURE REPORT [id number] [facility] Jay Gambino MD E-Sign: [facility] THIS REPORT IS CONFIDENTIAL AND NOT TO BE RELEASED WITHOUT PROPER AUTHORIZATION. [facility] inferior than the prior PVCs but [...] via the right femoral artery. An [address] The patient was [...] or if this helps. MONA GAY ADM:01/30/13 [id number] 01/31/13 [place] CARDIAC PROCEDURE REPORT [id number] [facility] Jay Gambino MD E-Sign: [facility] THIS REPORT IS CONFIDENTIAL AND NOT TO BE RELEASED WITHOUT PROPER AUTHORIZATION. [facility] Jay Gambino MD A A /[facility] #[id number] cc: Jay Gambino MD Electronically Signed 02/16/13 1100 Jay Gambino MD MONA GAY ADM:01/30/13 [id number] 01/31/13 [place] CARDIAC PROCEDURE REPORT [id number] [facility] Jay Gambino MD E-Sign: [facility] THIS REPORT IS CONFIDENTIAL AND NOT TO [...] | | | | | | [place] [address] | | | | | | [phone] | | | | | | | [...] + + | [facility] | [address] | [place] [address] | | | [facility] | | [...] SACRED | [address] | [place] [address] | | | [facility] | | | | | LABORATORY | | | | + + + + + | [facility] | | | | | [facility] [...] + + | Glucose | 113 (H)Comment: Citizen Of [place] | 65 - 99 mg/dL | [facility] [...] + + | [facility] | [address] | [place] [address] | | | [facility] | [...]
--- OUTSIDE RECORDS SUMMARY | ~2020-06-07 | XMS | Encounter Summary ---
Demographics + + + | Address | [address] | | | [place] [address] | + + + | Home Phone [...] Team Providers + +------+ + | Care Dumper Bailer Operator Name | Role | Phone | [...] Refill | | 2013 | | [address] | DO [address] | | | | | [address] | [place] | | | | | [place], [place] | [address] | | | | | [address] | | | | | | [phone] | | | +--------+--------+ + + + [...] | | | | | | [place] [address] | | | | | | [phone] | | | | | | | | +--------+ + + + + documented as of this encounter Visit Diagnoses Not on filedocumented in this encounter"
--- OUTSIDE RECORDS SUMMARY | ~2020-06-07 | XMS | Encounter Summary ---
Demographics + + + | Address | [address] | | | [place] [address] | + + + | Home Phone [...] Team Providers + +------+ + | Care Follow Up Specialist Name | Role | Phone | + +------+ + PCP | Unavailable | + +------+ + Encounter Details +--------+ + + + + | Date | Type | Department | Care Team | Description | +--------+ + + + + | 06/13/ | [facility] | [facility] | Daljit Singletary, | | | 2008 | Encounter | MED CTR LABORATORY | [address] | | | | | [address] [place] | [place], | | | | | [place] | [place] [address] | | | | | [address] | [phone] | | | | | [phone] | | | +--------+ + + + [...] | | | | | | [place] [address] | | | | | | [phone] | | | | | | | | +--------+ + + + + documented as of this encounter Visit Diagnoses Not on filedocumented in this encounter"
--- OUTSIDE RECORDS SUMMARY | ~2020-06-07 | XMS | Encounter Summary ---
Demographics + + + | Address | [address] | | | [place] [address] | + + + | Home Phone [...] Providers + +------+ + | Care Detective Investigator Name | Role | Phone | [...] | CARDIOLOGY [address] | MD [address] | | | | | [place], | [place], | | | | | [place] [address] | [place] [address] | | | | | [phone] | [phone] | | | | | | | [...] | | | | | | [place] [address] | | | | | | [phone] | | | | | | | | +--------+ + + + + documented as of this encounter Visit Diagnoses Not on filedocumented in this encounter"
--- OUTSIDE RECORDS SUMMARY | ~2020-06-07 | XMS | Encounter Summary ---
Demographics + + + | Address | [address] | | | [place] [address] | + + + | Home Phone [...] + +------+ + | Care Production Machine Operator Name | Role | Phone [...] | | | | Sinoatrial | Jose, EGG PRODUCER | [address] | | | | | node | [address] | [place], | | | | | dysfunction | [place] | [place] | | | | | (HCC) | [place], [place] | [address] | | | | | Coronary | [address] | Phone: | | | | | artery | Phone: | [phone] | | | | | disease | [phone] | Fax: | | | | | involving | Fax: | [phone] | | | | | [place] | [phone] | | | | | | coronary [...] | | | | | | Complete [place] | | | | | | | ECHO HEART | | | | | | | XTHORACIC,[place] | | | | | | | MPLETE W | | | | | | | DOPPLER ME | | | | | | [...] | | | | Sinoatrial | Jose, EGG PRODUCER | [address] | | | | | node | [address] | [place], | | | | | dysfunction | [place] | [place] | | | | | ([facility]) | [place], [place] | [address] | | | | | Coronary | [address] | Phone: | | | | | artery | Phone: | [phone] | | | | | disease | [phone] | Fax: | | | | | involving | Fax: | [phone] | | | | | [place] | [phone] | | | | | | coronary [...] | | | | | | Complete [place] | | | | | | | ECHO HEART | | | | | | | XTHORACIC,[place] | | | | | | | MPLETE W | | | | | | | DOPPLER [place] | | | | | | [...] + + + + | 06/16/ | [facility] | [facility] | Jose Angel, | Sinoatrial node | | 2016 | Encounter | MED CTR ECHO [address] | EGG PRODUCER [address] | dysfunction (HCC) | | | | [place] | [place] [facility] [place] | with symptomatic | | | | [place] [address] | [address] | bradycardia; | | | | [phone] | | Coronary artery | | | [...] + + + +---------+ + + | [place]-3 Fatty | CAPS, one capsule by | [...] | | | | | | [place] [address] | | | | | | [phone] | | | | | | | [...] Patient | [facility] | | [id number] Date of Study 06/16/2016 Number | - IMAGING | | Visit Number [id number] | | | Referring Physician JOSE ARMANDO JOSE Number Date of 1960 | | | Commercial Collector LUIS FERNANDO RIGOBERTO RDS Age | | | 56 year(s) Interpreting | | | GURJIT TROY | | | Lining Cleaner SYDNI CAGLE, | | | MD Gender | | | Male Nurse Procedure Type of Study TTE | | | procedure: ECHO Complete. Procedure dateDate: 06/16/2016Start: 10:55 | | | AM Technical Quality: Adequate visualizationStudy Location: Echo | | | LabIndications: CAD [place] CORONARY ARTERY 414.01/ I25.10 and | | [...] BARRY Room Number SARAH | | Patient [id number] Date of Study 06/16/2016 Number Visit Number | | [id number] Referring Physician JOSE ARMANDO JOSE Number | | Date of 1960 Commercial Collector GABBIROLYGustavo RIGOBERTO DUARTE Age | | 56 year(s) Interpreting GURJIT TROY | | Lining Cleaner SYDNI CAGLE, | | Gender Male NurseProcedureType of Study TTE | | procedure: ECHO Complete.Procedure dateDate: 06/16/2016Start: 10:55 AMTechnical Quality: | | Adequate visualizationStudy Location: Echo LabIndications: CAD [place] CORONARY ARTERY | | 414.01/ I25.10 and [...] [address] | [place] | [phone] | | [facility] | | [address] | | | - IMAGING | | [...]
--- OUTSIDE RECORDS SUMMARY | ~2020-06-07 | XMS | Encounter Summary ---
Demographics + + + | Address | [address] | | | [place] [address] | + + + | Home Phone [...] + + | 08/29/ | Office | [facility] | Silvia, | Essential | | 2015 | Visit | CARDIOLOGY [address] | [place] [address] | hypertension | | | | [place], | [place], | (Primary Dx); | | | | [place] [address] | [place] [address] | Coronary artery | | | | [phone] | [phone] | disease involving | | | | | | diomede coronary | | | | | | [...] was advised to come back to the [place] to furt her his evaluation. He was seen in the emergency room at [facility] on 08/23/20 15 and the ER physician reviewed his chart saying that there were 2 ultrasounds from [facility] both of them are clear of DVT but reveal some venous insufficiency. Today, arian ent tells me that he started having swelling in both his feet within a week when he got to [facility]. He had extensive traveling. He went to [...] going to be traveling back to the [facility]. Today, patient states that his leg swelling [...] 3rd dose, call 911 100 tablet 3 Olga-3 Fatty Acids (SALMON OIL-1000 PO) CAPS, one [...] Daily. to reduce urinary frequenc y Lot #[id number], exp 07/2016 (Patient taking differently: Take 8 mg by mouth Daily. PATIENT STA YOSELIN NO LONGER TAKING THIS MEDICATION. STATED ON 08/29/2015. to reduce urinary frequency Lot #[id number], exp 07/2016) 21 capsule 0 Specialty Vitamins [...] 163 07/26/2014 I reviewed records from [facility] for emergency department visit o n 08/23/2015. [...] brought reports to the emergency room at [facility] and according to the not es they [...] performed by Dr. Gambino at [facility] on 01/30/2013. Patient had spontaneous [...] to go back in 3 days to [place] for an attempt of ablation under general [...] this chart may have been created with Adyuka voice recognition software. Occasi onal wrong-word or [...] | | | | | | [place] [address] | | | | | | [phone] | | | | | | | [...] the | | | | PDT | diomede coronary | results section. | | | [...] through the popliteal fossa | [facility] | | in both lower extremities.. [...] conveyed to the ordering provider, by the finnish rubber, | | | immediately following the exam. [...] to the ordering provider, by the | |finnish rubber, immediately following the exam. | | | | | |Dictated and Signed by: Emmanuel Gibbons MD | | Electronically signed: 08/29/2015 3:25 PM | + + + + + + + | Performing | Address | City/State/Zipcode | Phone Number | | Organization | | | | + + + + + | [facility] | [address] 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
--- OUTSIDE RECORDS SUMMARY | ~2020-06-07 | XMS | Encounter Summary ---
Demographics + + + | Address | [address] | | | [place] [address] | + + + | Home Phone [...] Providers + +------+ + | Care Field Advisor Name | Role | Phone | [...] [address] | | | | | IN OFFICE | [place] | [place] | | | | | CONSULTATION | [place], | [address] Phone: | | | | | [place]AB | [place] | [phone] | | | | | PATIENT 40 | [address] | Fax: | | | | | MIN | Phone: | [phone] | | | | | | [phone] | | | | | | | Fax: | | | | | | | [phone] | | +--------+--------+ + + + + [...] [address], | | | | | [address] | [place] [address] | | | | | [address] | [phone] | | | | | [phone] | | | +--------+---------+ + + + [...] Gambino MD - 11/30/2014 5:37 PM PST [facility] [address] [place], [place] [address] Patient Name: Moe Sanchez Date: 1960 Date [...] tablet by mouth Daily. [facility] Natural Products (OSTEO BI-FLEX/5-LOXIN ADVANCED PO) Take by mouth. Takes 2 table ts in the morning and 2 tablets at night Nattokinase 100 MG CAPS Take by mouth 2 (two) times daily. nitroglycerin (NITROSTAT) 0.[address] 1 tablet under the tongue every 5 luz marcos as needed for Chest pain. [place]-3 Fatty Acids (SALMON OIL-1000 PO) CAPS, one capsule by mouth daily twice daily ONE TOUCH DELICA LANCETS [facility] Check glucose as needed for hypoglycemia pantoprazole [...] Hypoglycemia; Drug addiction in remission ([facility]); HTN (hypertension); Hypercholesterolemia; Bipolar 1 disorder ( [facility]); Insomnia; Chronic neck pain; Depression; Hyperlipidemia; BIPOLAR [...] W | | | | | | [place], | | | | | | [place] [address] | | | | | | [phone] | | | | | | | [...]
--- OUTSIDE RECORDS SUMMARY | ~2020-06-07 | XMS | Encounter Summary ---
Demographics + + + | Address | [address] | | | [place] [address] | + + + | Home Phone [...] Team Providers + +------+ + | Care Passport Support Associate Name | Role | Phone | + +------+ + | Kirk French MD | PCP | | + +------+ + Encounter Details +--------+ + + + + | Date | Type | Department | Care Team | Description | +--------+ + + + + | 11/17/ | Telephone | [facility] | Kirk French | | | 2019 | | [facility] FABRIZIO Guidry MD [address] | | | | | [address] | [address] | | | | | [address] | [place] [address] | | | | | [place], [place] | [phone] | | | | | [address] | | | | | | [phone] | | | +--------+ + + + [...] 12/06/2019 12:47 PM PSTDisregarded per Johanna at [facility] elephone Encounter - Geri Bear Medical Device Assembler - 11/24/2019 12:20 PM PSTsee elephone Encounter - Nadeem French MD - 11/24/2019 12:19 PM PSTDefer to his career transition specialist, pretty common procedeu re elephone Encou nter - Geri Bear Medical Device Assembler - 11/24/2019 11:44 AM PSTPlease adviseElectronicall y signed by Geri Bear Medical Device Assembler at 11/24/2019 11:44 AM PSTTelephone Encounter - Shelley Hess - 11/17/2019 2:37 PM PSTProvider: Dr. Manolo Valadez called needing a recommendation for where patient can get a capsules endoscopy do ne. Caller: Campos Relationship to patient:[facility] Please call back at [phone] Can a Detailed VM be left on [...] | | | | | | [place] [address] | | | | | | [phone] | | | | | | | | +--------+ + + + + documented as of this encounter Visit Diagnoses Not on filedocumented in this encounter"
--- OUTSIDE RECORDS SUMMARY | ~2020-06-07 | XMS | Encounter Summary ---
Demographics + + + | Address | [address] [place] [address] [address] | | | [place] [address] | + + + | Home Phone [...] [place] | | | | | [address] | | + + + + + Care Team Providers + +------+ + | Care Electro Mechanical Engineer Name | Role | Phone [...] | | 2020 | | Center at [facility] [address] | MD [address] | | | | | [address] [place] | [place], [place] | | | | | for Health and | [address] | | | | | [facility] 2 | [phone] | | | | | [place], [place] | | | | | | [address] | | | | | | [phone] | | | +--------+ + + + [...]
--- OUTSIDE RECORDS SUMMARY | ~2020-06-07 | XMS | Encounter Summary ---
Demographics + + + | Address | [address] | | | [place] [address] | + + + | Home Phone [...] Team Providers + +------+ + | Care Barber Shop Operator Name | Role | Phone | [...] CTR CASE | RN | (referral from [facility]) | | | | MANAGEMENT [address] | | | | | | [place], | | | | | | [place] [address] | | | | | | [phone] | | | +--------+ + + + [...] PM PDTOutpatient Case Managem ent: Referral from [facility] This gentleman is scheduled for an [...] we could suggest to an d from [place]. Can you look into this and suggest any transportation options? I was not able to talk to Amilcar. I talked to his support person Geraldine Espino (she will be with Amilcar for this procedure.. Two options: Free transportation service via [place] [place] [employer]: [phone]. They have transportat ion times available that [...] | | | | | | [place] [address] | | | | | | [phone] | | | | | | | | +--------+ + + + + documented as of this encounter Visit Diagnoses Not on filedocumented in this encounter"
--- OUTSIDE RECORDS SUMMARY | ~2020-06-07 | XMS | Encounter Summary ---
Demographics + + + | Address | [address] | | | [place] [address] | + + + | Home Phone [...] Providers + +------+ + | Care Front Services Agent Name | Role | Phone [...] + + | 05/01/ | Refill | [facility] | Kirk French | Medication Orders | | 2020 | | [facility] | MD Brea [address] | | | | | [address] | [address] | | | | | [address] | [place] [address] | | | | | [place], [place] | [phone] | | | | | [address] | | | | | | [phone] | | | +--------+--------+ + + + [...] Miscellaneous Notes Addendum Note - Hailey Girard, Plant Guard - 05/02/2020 2:30 PM PDT Add ended [...] left ankle. Please send both medication to [id number] - [place], [place] - [address] [phone] (Phone) Sia Vasquez Ext [phone] elephone Encounter - Hailey Girard, Plant Guard - 05/02/2020 8:42 AM PDTLeft VM to patient to call back and let us know what strength of Lyrica he is on so provider can prescribed. E lectronically signed by Hailey Padron Plant Guard at 05/02/2020 8:43 AM PDTTelephone Encounter - Kirk French MD - 05/02/2020 8:03 AM PDTOk as requestedEl ectronically signed by Kirk French MD at 05/02/2020 8:03 AM PDTTelephone Encounter - Geri Bear Plant Guard - 05/01/2020 1:50 PM PDTPlease adviseElectronically si gned by Geri Bear Plant Guard at 05/01/2020 1:50 PM PDTTelephone Encounter - Kailyn Gomes - 05/01/2020 1:48 PM PDTFred, is calling regarding Medication Orders and would like a call back. Additional Call Details: Patient states he is no longer going to the pain management clinic and is requesting for Dr. French to start prescribing Lyrica to help with the pain. Yasmany crowe call him back at [phone] If this is a symptom based call, was patient offered triage? Not Applicable If this is a symptom based call and you were unable to immediately transfer the call to a lorraine bellamy senior firewall engineer was caller made aware that if [...] | | | | | | [place] [address] | | | | | | [phone] | | | | | | | | +--------+ + + + + documented as of this encounter Visit Diagnoses + + | Diagnosis | + + | Left ankle pain, unspecified chronicity - Primary | + + documented in this encounter"
--- OUTSIDE RECORDS SUMMARY | ~2020-06-07 | XMS | Encounter Summary ---
Demographics + + + | Address | [address] | | | [place] [address] | + + + | Home Phone [...] Providers + +------+ + | Care Business Strategy Manager Name | Role | Phone [...] unspecified | [address] | | | | | type | [address] | [place], | | | | | Procedures | [place], | [place] | | | | | [place] | [place] [address] | [address] | | | | | Stress Test | Phone: | Phone: | | | | | (Vasodilator | [phone] | [phone] | | | | | ) CHG | Fax: | Fax: | | | | | MYOCARDIAL | [phone] | [phone] | | | | | SPECT | | | | | | | MULTIPLE | | | | | | | STUDIES OR | | | | | | | CV STRS TST | | | | | | | XERS&/OR RX | | | | | | | CONT ECG W/O | | | | | | | I&R OR | | | | | | [...] Closed | | Radiology | Diagnoses | Gemiin, | [facility] | | | | | Chest pain, | MD Daljit | Medicine | | | | | unspecified | [address] | [address] | | | | | type | [address] | [place], | | | | | Procedures | [place], | [place] | | | | | [place] | [place] [address] | [address] | | | | | Stress Test | Phone: | Phone: | | | | | (Vasodilator | [phone] | [phone] | | | | | ) CHG | Fax: | Fax: | | | | | MYOCARDIAL | [phone] | [phone] | | | | | SPECT | | | | | | | MULTIPLE | | | | | | | STUDIES OR | | | | | | | CV STRS TST | | | | | | | XERS&/OR RX | | | | | | | CONT ECG W/O | | | | | | | I&R OR | | | | | | [...] + + | 07/21/ | Hospital [facility] | Daljit Singletary, | Chest pain, | | 2018 | Encounter | MED CTR NUCLEAR | MD [address] | unspecified type | | | | MEDICINE [address] | [address] [place], | | | | | [place], | [place] [address] | | | | | [place] [address] | [phone] | | | | | [phone] | | | | | | | Correction WorkerPavel | | +--------+ + + + + [...] + + + +---------+ + + | [place]-3 Fatty | CAPS, one capsule by | [...] | 2019 | Visit | | Janeen, ENERGY ADVISOR [address] | | | | | | [place], | | | | | | [place] [address] | | | | | | [phone] | | | | | | | [...] | | | | Starting [facility] 07/21/18 at 0822, For | | | | | | | 1 dose, Nuclear Medicine | | | | | | + +-------+ + +---+---+ +---+---+ | | | +---+---+ documented in this encounter"
--- OUTSIDE RECORDS SUMMARY | ~2020-06-07 | XMS | Encounter Summary ---
Demographics + + + | Address | [address] | | | [place] [address] | + + + | Home Phone [...] Providers + +------+ + | Care Clay Artisan Name | Role | Phone | + [...] | | | | | | [place] [address] | | | | | | [phone] | | | +--------+ + + + [...] | | | | | | [place] [address] | | | | | | [phone] | | | | | | | | +--------+ + + + + documented as of this encounter Visit Diagnoses Not on filedocumented in this encounter"
--- OUTSIDE RECORDS SUMMARY | ~2020-06-07 | XMS | Encounter Summary ---
Demographics + + + | Address | [address] | | | [place] [address] | + + + | Home Phone [...] Team Providers + +------+ + | Care Hydroelectric Plant Operator Name | Role | Phone [...] | 04/24/ | Telephone | [facility] | Geri Angel, | Appointment | | 2014 | | CARDIOLOGY [address] | INFORMATION SERVICES MANAGER [address] | | | | | [place], | [place] [facility] [place] | | | | | [place] [address] | [address] | | | | | [phone] | | | +--------+ + + + [...] n 06-12-15@800w/kailey and @830w/gaby. Patient is from [place]. Therefore he might prefer one in the afternoon elephone Encounter - Nereida Patterson ra - 05/10/2015 2:54 PM PDTCalled patient to re-schedule his appointment to add a d evice check with Kailey. I found one on 06-12-15@800w/kailey and @830w/gaby. Patient is from [place]. Therefore he might prefer one in the [...] | | | | | | [place] [address] | | | | | | [phone] | | | | | | | | +--------+ + + + + documented as of this encounter Visit Diagnoses Not on filedocumented in this encounter
--- OUTSIDE RECORDS SUMMARY | ~2020-06-07 | XMS | Encounter Summary ---
Demographics + + + | Address | [address] | | | [place] [address] | + + + | Home Phone [...] Team Providers + +------+ + | Care Obstetrics Gynecology Physician Name | Role | Phone | + +------+ + | Kirk French MD | PCP | | + +------+ + Encounter Details +--------+ + + + + | Date | Type | Department | Care Team | Description | +--------+ + + + + | 03/15/ | Hospital | [facility] | Conversion | | | 2016 | Encounter | [facility] | Transaction, | | | | | [address] | Provider Unknown | | | | | [address] [place] [place] | [phone] | | | | | [address] | | | | | | [phone] | Kirk French | | | | | | MD Eva Guidry | | | | | | [address] [place], | | | | | | [place] [address] | | | | | | [phone] | | | | | | | [...] + + + +---------+ + + | [place]-3 Fatty | CAPS, one capsule by | [...] | | | | | | [place] [address] | | | | | | [phone] | | | | | | | | +--------+ + + + + documented as of this encounter Visit Diagnoses Not on filedocumented in this encounter"
--- OUTSIDE RECORDS SUMMARY | ~2020-06-07 | XMS | Encounter Summary ---
Demographics + + + | Address | [address] | | | [place] [address] | + + + | Home Phone [...] Providers + +------+ + | Care Blue Prints Trimmer Name | Role | Phone | [...] + | 05/05/ | Telephone | [facility] | Silvia, | Appointment | | 2017 | | CARDIOLOGY [address] | PARISA [place] [address] | | | | | [place], | [place], | | | | | [place] [address] | [place] [address] | | | | | [phone] | [phone] | | | | | | | [...] pro vider is out. Called patient, left [facility] with request for patient to call [...] | | | | | | [place] [address] | | | | | | [phone] | | | | | | | | +--------+ + + + + documented as of this encounter Visit Diagnoses Not on filedocumented in this encounter"
--- OUTSIDE RECORDS SUMMARY | ~2020-06-07 | XMS | Encounter Summary ---
Demographics + + + | Address | [address] | | | [place] [address] | + + + | Home Phone [...] + +------+ + | Care Sales Representative Adding Machines Name | Role | Phone | + [...] + + | 06/02/ | Telephone | [facility] | AnshujohnsoncherelleRashadotto, | Other (symptoms) | | 2019 | | CARDIOLOGY [address] | MD [address] | | | | | [place], | [place], | | | | | [place] [address] | [place] [address] | | | | | [phone] | [phone] | | | | | | | [...] RN - 06/02/2019 5:08 PM PDTPatient [facility] Called patient and spoke with him about his symptoms. He is having baljit st pain and shortness of breath, dizziness and lightheadedness where he is almost passes out . "When heart is fluttering it knocks me over". Instructed patient to go to the ER immediate ly. He refuses because he lives in [place] and doesn't want to go to [facility]. He sta marcos he has no [...] | | | | | | [place] [address] | | | | | | [phone] | | | | | | | | +--------+ + + + + documented as of this encounter Visit Diagnoses Not on filedocumented in this encounter
--- OUTSIDE RECORDS SUMMARY | ~2020-06-07 | XMS | Encounter Summary ---
Demographics + + + | Address | [address] | | | [place] [address] | + + + | Home Phone [...] Providers + +------+ + | Care Oil Dispatcher Name | Role | Phone | [...] | | Ascending | Silvia | Jaimee [place] | | | | | aortic | PARISA [place] | [place], | | | | | aneurysm | [address] | [place] [address] | | | | | (HCC) | [place] | Phone: | | | | | Abdominal | [place], | [phone] | | | | | aortic | [place] | Fax: | | | | | aneurysm | [address] | [phone] | | | | | (AAA) | Phone: | | | | | | without | [phone] | | | | | | rupture | Fax: | | | | | | (HCC) | [phone] | | | | | | Procedures [...] | unspecified | MD Martell | [address] | | | | | type ER | [address] | [place] [address] | | | | | FUP | [place] | [place], | | | | | Procedures | [place], [place] | [place] [address] | | | | | FUP - SUW & | [address] | Phone: | | | | | MISHA PT, LAST | Phone: | [phone] | | | | | SEEN | [phone] | Fax: | | | | | 08-24-18 | Fax: | [phone] | | | | | | [phone] | | +--------+ + + + + + Encounter Details +--------+---------+ + + + | Date | Type | Department | Care Team | Description | +--------+---------+ + + + | 01/11/ | Office | [facility] | Silvia, | Coronary artery | | 2018 | Visit | CARDIOLOGY [address] | PARISA [place] [address] | disease involving | | | | [place], | [place], | [place] coronary | | | | [place] [address] | [place] [address] | artery of [place] | | | | [phone] | [phone] | heart without angina | | | [...] encounter Patient Instructions Patient Instructions Jennifer February, Paper Bundler - 01/11/2019 12:45 PM PST 1. You [...] Check-in time: 1. Check in at the [facility]. 2. Do not [...] procedure. 6. Make sure you have a stock car driver to take you home. Your stock car driver will also need to sign you [...] hospital line at and ask for nursing heavy equipment plumbing supervisor t o let them know you are cancelling . Blood test: Non-fasting Date Due: same day as CTA Where to go for labs: [facility]- [address] [facility]. CTA of Chest and Abdomen: Date: [...] DOSE, CALL 911 100 tablet 3 [place]-3 Fatty Acids (SALMON OIL-1000 PO) CAPS, one capsule by mouth daily twice daily ondansetron (ZOFRAN ODT) 4 mg disintegrating tablet Take 4 mg by mouth. ONE TOUCH DELICA LANCETS [facility] [...] was found Confirmed by ANGELA MARADIAGA MD ([id number]) on 01/03/2019 8:10:39 PM LAB RESULTS reviewed [...] HPI. RESULTS- I reviewed reports from [facility]: Xr Chest Ap Portable Result Date: [...] of [place] heart [facility] angina pectoris: A. Normal exercise [...] Symptoms with moderate exertion of t he [place] [employer] functional class. Heart failure stage [...] go back in 3 days t o [place] for an attempt of ablation [...] he has any further problems Christine Clemente Paper Bundler am acting as a scribe on behalf of, and in the pres ence of PARISA Lomas. - Reji Newman 01/11/2019 13:46 Janeen Clemente ARNP, personally performed the services described in this documentati on, as scribed in my presence and it is both accurate and complete. -PARISA Lomas 01/11/2019 Portions of this chart may have been created with [employer] voice recognition software. Occasi onal wrong-word [...] | | | | | | [place] [address] | | | | | | [phone] | | | | | | | [...]
--- OUTSIDE RECORDS SUMMARY | ~2020-06-07 | XMS | Encounter Summary ---
Demographics + + + | Address | [address] | | | [place] [address] | + + + | Home Phone [...] Providers + +------+ + | Care Brim Blocker Name | Role | Phone | [...] + + | 06/18/ | Emergency | [facility] | Dom Graham, | Cervical pain (neck) | | 2013 | | MED CTR EMERGENCY | MD [address] | (Primary Dx); | | | | CENTER [address] | [place] | Paresthesia and pain | | | | [place] | [address] | of both upper | | | | [address] | | extremities | | | | [phone] | | | +--------+ + + + [...] cannot be sent through Care Everywhere.PARAESTHESIAS ( BELIZEAN)NECK SPRAIN/STRAIN (BELIZEAN)documented in this encounter Medications at Time of [...] + + + +---------+ + + | [place]-3 Fatty | CAPS, one capsule by | [...] TABLET Take 1 tablet by mouth Daily. [facility] [place] [place] [employer] (OSTEO [...] CITY Check glucose as needed for hypoglycemia PANTOPRAZOLE [...] Bilateral external ears normal, Oral mucosa moist, frame stripper and crusher ior pharynx no exudates, Nose normal. Neck-supple, [...] Amanda DO. In 1 week. Contact information: [address] [place] [address] New Prescriptions METHYLPREDNISOLONE (MEDROL DOSEPAK) 4 MG TABLET Follow package directions. Dom Graham MD 06/18/14 1722 document ed in this encounter Miscellaneous Notes Plan of Care - IRINA MAXWELL WAGA - 06/21/2014 12:00 AM PDT D Triage [...] | | | | | | [place] [address] | | | | | | [phone] | | | | | | | [...] + | MISCELLANEOUS LAB | | | [phone] | + +---------+ + + | MISCELANIOUS LAB | | | [phone] | + +---------+ + + documented in this encounter Visit Diagnoses + + | Diagnosis | + + | Cervical pain (neck) - Primary Cervicalgia | + + | Paresthesia and pain of both upper extremities Disturbance of skin sensation | + + documented in this encounter
--- OUTSIDE RECORDS SUMMARY | ~2020-06-07 | XMS | Encounter Summary ---
Demographics + + + | Address | [address] | | | [place] [address] | + + + | Home Phone [...] Team Providers + +------+ + | Care Panama Hat Blocker Name | Role | Phone [...] 2018 | | GASTROENTEROLOGY | [address], [place] | (egd,colon) | | | | [address] [place] | [address] [place], [place] | | | | | [address] [place], [place] | [address] | | | | | [address] | | | | | | [phone] | | | +--------+ + + + [...] out he will buy his ticket to [employer]. Recall for colonoscopy entered for 5 years [...] | | | | | | [place] [address] | | | | | | [phone] | | | | | | | | +--------+ + + + + documented as of this encounter Visit Diagnoses Not on filedocumented in this encounter"
--- OUTSIDE RECORDS SUMMARY | ~2020-06-07 | XMS | Encounter Summary ---
Demographics + + + | Address | [address] | | | [place] [address] | + + + | Home Phone [...] Team Providers + +------+ + | Care Embosser Apprentice Name | Role | Phone | [...] | disease involving | | | | [place], | [place], | k[place] coronary | | | | [place] [address] | [place] [address] | artery of kiana | | | | [phone] | [phone] | heart without angina | | | [...] | | | | | | [place] [address] | | | | | | [phone] | | | | | | | [...] MD | | | | | | ([id number]) on 06/23/2016 | | | | | [...] kiana heart without | | angina pectoris - Primary | + + | Essential hypertension with goal blood pressure less than 130/80 | + + documented in this encounter"
--- OUTSIDE RECORDS SUMMARY | ~2020-06-07 | XMS | Encounter Summary ---
Demographics + + + | Address | [address] | | | [place] [address] | + + + | Home Phone [...] Team Providers + +------+ + | Care Comb Winder Name | Role | Phone | [...] W | rescheduled) | | | | [place], | [place], | | | | | [place] [address] | [place] [address] | | | | | [phone] | [phone] | | | | | | | [...] PSTPatient called back to resched [facility] appointment. Patient is now scheduled to [...] | | | | | | [place] [address] | | | | | | [phone] | | | | | | | | +--------+ + + + + documented as of this encounter Visit Diagnoses Not on filedocumented in this encounter"
--- OUTSIDE RECORDS SUMMARY | ~2020-06-07 | XMS | Encounter Summary ---
Demographics + + + | Address | [address] | | | [place] [address] | + + + | Home Phone [...] + + | 11/03/ | Emergency | [facility] | Eliel Calzada, | Palpitations; | | 2013 - | | MEDICAL CENTER | MD [address] | Atypical chest pain | | | | EMERGENCY CENTER | [place], [place] | | | 11/04/ | | [address] | [address] | | | 2013 | | [place], [place] | | | | | | [address] | | | | | | [phone] | | | +--------+ + + + [...] + + + +---------+ + + | Metcalf-3 Fatty | CAPS, one capsule by | [...] 11/04/1447 Date of Service: 11/04/1446 Status: Signed Locomotive Observer: Blade Rizo RN (Registered Nurse) No changes evident in pt status, pt is resting quietly waiting for test results. Blade Rizo RN 11/04/1447 onver fatemeh Transaction, Provider Unknown - 11/03/2014 11:41 PM PST ED Notes by Blade Rizo RN at 11/03/142340 Author: Blade Rizo RN Service: (none) Author Type: Registered Nurse Filed: 11/03/142340 Date of Service: 11/03/142340 Status: Signed Locomotive Observer: Blade Rizo RN (Registered Nurse) Calm, resting quietly, awaiting test results. Call light in reach. Blade Rizo RN 11/03/142340 onver fatemeh Transaction, Provider Unknown - 11/03/2014 11:13 PM PST ED Notes by Blade Rizo RN at 11/03/142312 Author: Blade Rizo RN Service: (none) Author Type: Registered Nurse Filed: 11/03/142312 Date of Service: 11/03/142312 Status: Signed Locomotive Observer: Blade Rizo RN (Registered Nurse) Dr. Calzada at bedside. Blade Rizo RN 11/03/142312 odine Eliel grady MD - 11/03/2014 11:10 PM PST ED Provider Notes by Eliel Calzada DO at 11/03/142309 Author: Eliel Calzada DO Service: (none) Author Type: Physician Filed: 11/05/14811 Date of Service: 11/03/142309 Status: Signed Locomotive Observer: Eliel Calzada DO (Physician) [facility] Department of Emergency Medicine 11/03/2014 History of [...] history. 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 He states his scientific software engineer is in [place]. Pt reports he last had an angiogram 6 months ago at [facility]. Pt reports he has anxiety but has [...] p rocess. 1:50 AM. Reviewed records from [facility]. Records show that the patient does [...] make sure he follows up with his scientific software engineer this week. Filed Vitals: 11/03/14 2305 11/03/14 [...] si gns I obtain the records from [facility]. The angiogram was performed on [...] Procedure Component Value Ref Range Date/Time Magnesium [[id number]] Collected: 11/03/142309 Order Status: Completed Updated: 11/04/147 MAGNESIUM 2.1 1.7 - 2.4 mg/dL Phosphorus [[id number]] Collected: 11/03/142309 Order Status: Completed Updated: 11/04/147 PHOSPHORUS 3.4 2.3 - 4.8 mg/dL TSH [[id number]] Collected: 11/03/142309 Order Status: Completed Updated: 11/04/14 0008 TSH 3.20 0.45 - 5.10 uIU/mL Cardiac Panel [[id number]] (Abnormal) Collected: 11/03/142309 Order Status: Completed Updated: [...] ng/mL CK-MB Index 2.8 POC cardiac troponin [[id number]] Collected: 11/03/14 2315 Order Status: Completed Updated: [...] Documented by Eliel Calzada DO (11/04/14 01:12:44, [facility] Emergency Department, Emergency Medicine) Chest X-ray: Left anterior chest wall device with two wires, in position similar to previous radiographs, normal heart size, normal mediastinum and great vessels, no fractures or bony lesions, Normal soft tissue. Views: PA and lateral, Good technique Preliminary Interpretation by Eliel Calzada DO 2306 Atrial paced rhythm with prolonged rhythm at 84 BPM Normal MT and NENITA Normal QRS and [place] Normal QT and QTc Normal ST/T without [...] e valuation [address] [facility] [address] [facility] Emergency Department If symptoms worsen [address] [facility] [address] PARISA Russell [address] [facility] [address] Michael Amanda DO Discharge Medications: Discharge Medication [...] W | | | | | | [address] [place], | | | | | | [place] [address] | | | | | | [phone] | | | | | | | [...] CHEST 2 VIEW FRONTAL | | AND GUYZRBR7411/03/2014 11:56 PM History: 54 years. Male. Acute [...] [place] | | | | | | [address] | | | | + + + + + -+ | Non- | 4.97Comment: Testing | 4.20 - 5.70 | EXTERNAL | | | Red Blood | performed at [facility];888 | M/uL | LAB | | | Cells | [address];[place] | | | | | Counted | [address] | | | | + + + + + -+ | Hemoglobin | 16.8Comment: Testing | 13.2 - 17.0 | EXTERNAL | | | | performed at [facility];888 | g/dL | LAB | | | | [address];[place] | | | | | | [address] | | | | + + + + + -+ | Hematocrit, | 48.2Comment: Testing | 39.0 - 50.0 % | EXTERNAL | | | POC | performed at [facility];888 | | LAB | | | | [address];[place] | | | | | | [address] | | | | + + + + + -+ | MCV | 97.1Comment: Testing | 80.0 - 100.0 fl | EXTERNAL | | | | performed at [facility];888 | | LAB | | | | [address];[place] | | | | | | [address] | | | | + + + + + -+ | MCH | 33.9Comment: Testing | 27.0 - 34.0 pg | EXTERNAL | | | | performed at [facility];888 | | LAB | | | | [address];[place] | | | | | | [address] | | | | + + + + + -+ | MCHC | 34.9Comment: Testing | 32.0 - 35.5 | EXTERNAL | | | | performed at [facility];888 | g/dL | LAB | | | | [address];[place] | | | | | | [address] | | | | + + + [...] [place] | | | | | | [address] | | | | + + + + + -+ | MPV | 9.0Comment: Testing | fl | EXTERNAL | | | | performed at [facility];888 | | LAB | | | | [address];[place] | | | | | | [address] | | | | + + + + + -+ | Differentia | AUTOMATEDComment: | | EXTERNAL | | | l Type | Testing performed at | | LAB | | | | [facility];[address] | | | [address];[place] [address] | | | | + + + + + -+ | % Segmented | 61.6Comment: Testing | % | EXTERNAL | | | | performed at [facility];888 | | LAB | | | Neutrophils | [address];[place] | | | | | | [address] | | | | + + + + + -+ | % | 27.8Comment: Testing | % | EXTERNAL | | | Lymphocytes | performed at [facility];888 | | LAB | | | | [address];[place] | | | | | | [address] | | | | + + + + + -+ | % Monocytes | 8.7Comment: Testing | % | EXTERNAL | | | | performed at [facility];888 | | LAB | | | | [address];[place] | | | | | | [address] | | | | + + + + + -+ | % | 0.8Comment: Testing | % | EXTERNAL | | | Eosinophils | performed at [facility];888 | | LAB | | | | [address];[place] | | | | | | [address] | | | | + + + + + -+ | % Basophils | 1.1Comment: Testing | % | EXTERNAL | | | | performed at [facility];888 | | LAB | | | | [address];[place] | | | | | | [address] | | | | + + + + + -+ | Absolute | 5.4Comment: Testing | 1.9 - 7.4 K/uL | EXTERNAL | | | Segmented | performed at [facility];888 | | LAB | | | Neutrophils | [address];[place] | | | | | | [address] | | | | + + + + + -+ | Absolute | 2.4Comment: Testing | 1.0 - 3.9 K/uL | EXTERNAL | | | Lymphocytes | performed at [facility];888 | | LAB | | | | [address];[place] | | | | | | [address] | | | | + + + + + -+ | Absolute | 0.8Comment: Testing | 0 - 0.8 K/uL | EXTERNAL | | | Monocytes | performed at [facility];888 | | LAB | | | | [address];[place] | | | | | | [address] | | | | + + + + + -+ | Absolute | 0.1Comment: Testing | 0 - 0.5 K/uL | EXTERNAL | | | Eosinophils | performed at [facility];888 | | LAB | | | | [address];[place] | | | | | | [address] | | | | + + + + + -+ | Absolute | 0.1Comment: Testing | 0 - 0.1 K/uL | EXTERNAL | | | Basophils | performed at [facility];888 | | LAB | | | | [address];[place] | | | | | | [address] | | | | + + + [...] [place] | | | | | | [address] | | | | + + + + + -+ | Na | 140Comment: Testing | 135 - 143 | EXTERNAL | | | | performed at [facility];888 | mmol/L | LAB | | | | [address];[place] | | | | | | [address] | | | | + + + + + -+ | K | 3.9Comment: Testing | 3.5 - 4.9 | EXTERNAL | | | | performed at [facility];888 | mmol/L | LAB | | | | [address];[place] | | | | | | [address] | | | | + + + + + -+ | Cl | 107Comment: Testing | 99 - 109 mmol/L | EXTERNAL | | | | performed at [facility];888 | | LAB | | | | [address];[place] | | | | | | [address] | | | | + + + + + -+ | CO2 | 28Comment: Testing | 23 - 32 mmol/L | EXTERNAL | | | | performed at [facility];888 | | LAB | | | | [address];[place] | | | | | | [address] | | | | + + + + + -+ | Anion Gap | 9Comment: Testing | 5 - 20 mmol/L | EXTERNAL | | | | performed at [facility];888 | | LAB | | | | [address];[place] | | | | | | [address] | | | | + + + + + -+ | Glucose, | 97Comment: Testing | 65 - 99 mg/dL | EXTERNAL | | | Fasting | performed at [facility];888 | | LAB | | | | [address];[place] | | | | | | [address] | | | | + + + + + -+ | BUN | 14Comment: Testing | 8 - 25 mg/dL | EXTERNAL | | | | performed at [facility];888 | | LAB | | | | [address];[place] | | | | | | [address] | | | | + + + + + -+ | Creatinine | 0.98Comment: Testing | 0.70 - 1.30 | EXTERNAL | | | | performed at [facility];888 | mg/dL | LAB | | | | [address];[place] | | | | | | [address] | | | | + + + + + -+ | BUN/Creatin | 14Comment: Testing | | EXTERNAL | | | ine Ratio | performed at [facility];888 | | LAB | | | | [address];[place] | | | | | | [address] | | | | + + + + + -+ | Calcium | 8.8Comment: Testing | 8.5 - 10.2 | EXTERNAL | | | | performed at [facility];888 | mg/dL | LAB | | | | [address];[place] | | | | | | [address] | | | | + + + + + -+ | Protein, | 6.9Comment: Testing | 6.3 - 8.2 g/dL | EXTERNAL | | | Total | performed at [facility];888 | | LAB | | | | [address];[place] | | | | | | [address] | | | | + + + + + -+ | Albumin | 3.7Comment: Testing | 3.6 - 5.0 g/dL | EXTERNAL | | | | performed at [facility];888 | | LAB | | | | [address];[place] | | | | | | [address] | | | | + + + + + -+ | Globulin | 3.2Comment: Testing | 1.3 - 4.9 g/dL | EXTERNAL | | | | performed at [facility];888 | | LAB | | | | [address];[place] | | | | | | [address] | | | | + + + + + -+ | A/G Ratio | 1.2Comment: Testing | 1.0 - 2.4 | EXTERNAL | | | | performed at [facility];888 | | LAB | | | | [address];[place] | | | | | | [address] | | | | + + + + + -+ | Bilirubin | 0.9Comment: Testing | 0.1 - 1.5 mg/dL | EXTERNAL | | | Total | performed at [facility];888 | | LAB | | | | [address];[place] | | | | | | [address] | | | | + + + + + -+ | ALP, | 60Comment: Testing | 35 - 115 U/L | EXTERNAL | | | External | performed at [facility];888 | | LAB | | | | [address];[place] | | | | | | [address] | | | | + + + + + -+ | AST | 22Comment: Testing | 10 - 45 U/L | EXTERNAL | | | | performed at [facility];888 | | LAB | | | | [address];[place] | | | | | | [address] | | | | + + + + + -+ | ALT | 37Comment: Testing | 10 - 65 U/L | EXTERNAL | | | | performed at [facility];888 | | LAB | | | | [address];[place] | | | | | | [address] | | | | + + + [...] at [facility];[address] | | | | | | [address];[place] [address] | | | | + + + + + -+ | CK, Total | 103Comment: Testing | 55 - 400 U/L | EXTERNAL | | | | performed at [facility];888 | | LAB | | | | [address];[place] | | | | | | [address] [...] [place] | | | | | | [address] | | | | + + + + + -+ | aPTT, | 26Comment: Testing | 23 - 32 seconds | EXTERNAL | | | Patient | performed at [facility];888 | | LAB | | | | [address];[place] | | | | | | [address] | | | | + + + + + -+ | CK-MB | 2.9Comment: Testing | 0.5 - 3.6 ng/mL | EXTERNAL | | | | performed at [facility];888 | | LAB | | | | [address];[place] | | | | | | [address] | | | | + + + [...] | LAB | | | | [address];[place] | | | | | | [address] | | | | + + + [...] | LAB | | | | [address];[place], [place] | | | | | | [address] | | | | + + + [...] | LAB | | | | [facility];[place], [place] | | | | | | [address] | | | | + + + [...] | | | | | ONLY, -COMPUTER ([id number]), | | | | | | news video editor Michelle Butcher | | | | | | (29) on 11/04/2014 | | | | | | 6:28:13 AM | | | | + + + + + + + + | Specimen | + + | | + + + + + | Narrative | Performed At | + + + | [facility] | EXTERNAL LAB | + [...]
--- OUTSIDE RECORDS SUMMARY | ~2020-06-07 | XMS | Encounter Summary ---
Demographics + + + | Address | [address] [place] [address] [address] | | | [place] [address] | + + + | Home Phone [...] [place] | | | | | [address] | | + + + + + Care Team Providers + +------+ + | Care Certified Pedorthotist Name | Role | Phone | + [...] | | | | [address] [place] | [place], [place] | | | | | [facility] and | [address] | | | | | [facility], [facility] 2 | [phone] | | | | | [place], [place] | | | | | | [address] | | | | | | [phone] | | | +--------+ + + + [...]
--- OUTSIDE RECORDS SUMMARY | ~2020-06-07 | XMS | Encounter Summary ---
Demographics + + + | Address | [address] | | | [place] [address] | + + + | Home Phone [...] Team Providers + +------+ + | Care Manhole Stripper Name | Role | Phone | [...] CARDIOLOGY [address] | MD [address] [place] [address] [place] | monitor | | | | [place], | [place], | disconnected) | | | | [place] [address] | [place] [address] | | | | | [phone] | [phone] | | | | | | | [...] other location s without success. I called [employer] and explained the situation. They recommend using an ethernet adapter as long as the patient has Wii Fi. Verified with patient that he does have internet and also verified his mailing address. [employer] will ship out the new equipment and [...] not connecting. Rec eived an e-mail from [employer] that they have been unable to reach [...] | | | | | | [place] [address] | | | | | | [phone] | | | | | | | | +--------+ + + + + documented as of this encounter Visit Diagnoses Not on filedocumented in this encounter"
--- OUTSIDE RECORDS SUMMARY | ~2020-06-07 | XMS | Encounter Summary ---
Demographics + + + | Address | [address] | | | [place] [address] | + + + | Home Phone [...] Team Providers + +------+ + | Care Bone Process Operator Name | Role | Phone [...] | | CARDIOLOGY [address] | [address] [place] | | | | | [place], | [place], | | | | | [place] [address] | [place] [address] | | | | | [phone] | [phone] | | | | | | | [...] called stating he just got out of [facility] and he has an enlarged [...] | | | | | | [place] [address] | | | | | | [phone] | | | | | | | | +--------+ + + + + documented as of this encounter Visit Diagnoses Not on filedocumented in this encounter
--- OUTSIDE RECORDS SUMMARY | ~2020-06-07 | XMS | Encounter Summary ---
Demographics + + + | Address | [address] | | | [place] [address] | + + + | Home Phone [...] Providers + +------+ + | Care Construction Technology Instructor Name | Role | Phone [...] 2019 | | GASTROENTEROLOGY | [address], [place] | | | | | [address] [place] | [address] [place], [place] | | | | | [address] [place], [place] | [address] | | | | | [address] | | | | | | [phone] | | | +--------+ + + + [...] - 09/07/2019 11:[address] [facility]. he states he had the "worse cr amping of his life. He received fluids. Cramping has eased up. He states Imaging and labs were done. [facility] appt at [facility] 09/28/[facility]. He will take his records from [facility] and from [facility]. e juan m Encounter - Anastacio Bennett - 09/04/2019 10:14 AM PDTName of Caller: Skyler Sanchez "Amilcar" Name of Patient: Moe Sanchez "Amilcar" Reason for call: Patient called and stated that his IBS medication is not helping. Patient stated that he has been like this for five days now. Routing to clinical staff to advise. Provider/Nurse: Dr. Daniel / Darryn Call back number: [phone] documented in this [facility] Plan of Treatment +--------+ + + [...] | | | | | | [place] [address] | | | | | | [phone] | | | | | | | | +--------+ + + + + documented as of this encounter Visit Diagnoses Not on filedocumented in this encounter
--- OUTSIDE RECORDS SUMMARY | ~2020-06-07 | XMS | Encounter Summary ---
Demographics + + + | Address | [address] | | | [place] [address] | + + + | Home Phone [...] Providers + +------+ + | Care Residential Youth Counselor Name | Role | Phone | [...] | CARDIOLOGY [address] | MD [address] [place] | | | | | [place], | [place], | | | | | [place] [address] | [place] [address] | | | | | [phone] | [phone] | | | | | | | [...] | | | | | | [place] [address] | | | | | | [phone] | | | | | | | | +--------+ + + + + documented as of this encounter Visit Diagnoses Not on filedocumented in this encounter"
--- OUTSIDE RECORDS SUMMARY | ~2020-06-07 | XMS | Encounter Summary ---
Demographics + + + | Address | [address] [place] [address] [address] | | | [place] [address] | + + + | Home Phone [...] [place] | | | | | [address] | | + + + + + Care Team Providers + +------+ + | Care Entry Level Account Executive Name | Role | Phone [...] | | [address] | [place], [place] | | | | | for Health and | [address] | | | | | [facility] 2 | [phone] | | | | | [place], [place] | | | | | | [address] | | | | | | [phone] | | | +--------+ + + + [...]
--- OUTSIDE RECORDS SUMMARY | ~2020-06-07 | XMS | Encounter Summary ---
Demographics + + + | Address | [address] [place] [address] [address] | | | [place] [address] | + + + | Home Phone [...] [place] | | | | | [address] | | + + + + + Care Team Providers + +------+ + | Care Nuclear Medicine Pet Ct Technologist Name | Role | Phone | [...]
--- OUTSIDE RECORDS SUMMARY | ~2020-06-07 | XMS | Encounter Summary ---
Demographics + + + | Address | [address] | | | [place] [address] | + + + | Home Phone [...] Team Providers + +------+ + | Care Weblogic Administrator Name | Role | Phone | [...] | 10/04/ | Telephone | [facility] | Gemini Shaistakenneth, | Other (Records sent) | | 2012 | | CARDIOLOGY [address] | MD [address] | | | | | [place], | [place], | | | | | [place] [address] | [place] [address] | | | | | [phone] | [phone] | | | | | | | [...] | | | | | | [place] [address] | | | | | | [phone] | | | | | | | | +--------+ + + + + documented as of this encounter Visit Diagnoses Not on filedocumented in this encounter"
--- OUTSIDE RECORDS SUMMARY | ~2020-06-07 | XMS | Encounter Summary ---
Demographics + + + | Address | [address] | | | [place] [address] | + + + | Home Phone [...] Providers + +------+ + | Care Traffic Representative Name | Role | Phone | [...] | CARDIOLOGY [address] | [address] | Interrogation | | | | [place], | [place], | (Primary Dx); | | | | [place] [address] | [place] [address] | Presence of | | | | [phone] | [phone] | permanent cardiac | | | | [...] Paceart documentation and remote PDF scanned into [employer] for remote interrogation re sults. Data collected [...] | | | | | | [place] [address] | | | | | | [phone] | | | | | | | [...] Paceart documentation and remote PDF scanned into [employer] | | | for remote interrogation results. [...]
--- OUTSIDE RECORDS SUMMARY | ~2020-06-07 | XMS | Encounter Summary ---
Demographics + + + | Address | [address] | | | [place] [address] | + + + | Home Phone [...] Providers + +------+ + | Care Managed Care Coordinator Name | Role | Phone [...] | [address] [place] | [place] [address] | | | | | [address] | [phone] | | | | | [phone] | | | +--------+ + + + [...] | | | | | | [place] [address] | | | | | | [phone] | | | | | | | | +--------+ + + + + documented as of this encounter Visit Diagnoses Not on filedocumented in this encounter"
--- OUTSIDE RECORDS SUMMARY | ~2020-06-07 | XMS | Encounter Summary ---
Demographics + + + | Address | [address] | | | [place] [address] | + + + | Home Phone [...] Providers + +------+ + | Care Plumbing Manager Name | Role | Phone | [...] [address] | | | | | [place], | [place], | | | | | [place] [address] | [place] [address] | | | | | [phone] | [phone] | | | | | | | [...] TO JUDITH LINCOLN MD AT FAX NUMBER [phone]: REFERRAL DEMOGRAPHICS CHART NOTES 10-23-14, 06-25-14 LABS [id number] signed by Briseida Shaye Martino at 10/26/2014 [...] | | | | | | [place] [address] | | | | | | [phone] | | | | | | | | +--------+ + + + + documented as of this encounter Visit Diagnoses Not on filedocumented in this encounter"
--- OUTSIDE RECORDS SUMMARY | ~2020-06-07 | XMS | Encounter Summary ---
Demographics + + + | Address | [address] | | | [place] [address] | + + + | Home Phone [...] + +------+ + | Care Intellectual Property Paralegal Name | Role | Phone | [...] changed his mind) | | | | [place], | [place], | | | | | [place] [address] | [place] [address] | | | | | [phone] | [phone] | | | | | | | [...] 3:30 PM PSTHe was ablated by Dr. Gambion. Send him th ere for Dx: Symptomatic [...] | | | | | | [place] [address] | | | | | | [phone] | | | | | | | | +--------+ + + + + documented as of this encounter Visit Diagnoses Not on filedocumented in this encounter"
--- OUTSIDE RECORDS SUMMARY | ~2020-06-07 | XMS | Encounter Summary ---
Demographics + + + | Address | [address] | | | [place] [address] | + + + | Home Phone [...] + +------+ + | Care Financial Services Representative Name | Role | Phone [...] [address] | | | | | [address] | [place], [place] | | | | | [phone] | [address] | | | | | | [phone] | | | | | | | [...] Notes by Kylah Fraser CMA at 04/11/18 8796 Author: Kylah Fraser CMA Service: (none) Author Type: Ways Operator Filed: 04/19/18 1118 Encounter Date: 04/11/2018 Status: Signed Linseed Oil Temperer: Kylah Fraser CMA (Ways Operator) See telephone encounter 04/19/18. docume nted in [...] | | | | | | [place] [address] | | | | | | [phone] | | | | | | | [...]
--- OUTSIDE RECORDS SUMMARY | ~2020-06-07 | XMS | Encounter Summary ---
Demographics + + + | Address | [address] | | | [place] [address] | + + + | Home Phone [...] Providers + +------+ + | Care [employer]ified [employer] Professional Name | Role | Phone | [...] [address] | | | | [place], | [place], | | | | | [place] [address] | [place] [address] | | | | | [phone] | [phone] | | | | | | | [...] | | | | | | [place] [address] | | | | | | [phone] | | | | | | | [...]
--- OUTSIDE RECORDS SUMMARY | ~2020-06-07 | XMS | Encounter Summary ---
Demographics + + + | Address | [address] | | | [place] [address] | + + + | Home Phone [...] Providers + +------+ + | Care Physical Therapy Attendant Name | Role | Phone | [...] | | | | CHRISTOPH DINH | [phone] | | | | | [address] | | | | | | [phone] | | | +--------+ + + + [...] + + + +---------+ + + | [place]-3 Fatty | CAPS, one capsule by | [...] | | | | | | [place] [address] | | | | | | [phone] | | | | | | | [...]
--- OUTSIDE RECORDS SUMMARY | ~2020-06-07 | XMS | Encounter Summary ---
Demographics + + + | Address | [address] | | | [place] [address] | + + + | Home Phone [...] Providers + +------+ + | Care Hand Tube Bender Name | Role | Phone [...] | MD [address] | [address] | | | | | hypertension | [address] | [place], | | | | | Sick sinus | [address] | [place] | | | | | syndrome | [facility], [place] | [address] | | | | | (HCC) | [address] | Phone: | | | | | Ventricular | Phone: | [phone] | | | | | premature | [phone] | Fax: | | | | | depolarizati | Fax: | [phone] | | | | | on | [phone] | | | | | | Tachycardia, | | | | | | | unspecified | | | | | | | | | | | | | | Atherosclero | | | | | | | tic heart | | | | | | | disease of | | | | | | | [place] | | | | | | | [...] + + | 05/01/ | Office | [facility] | Silvia, | Sinoatrial node | | 2020 | Visit | CARDIOLOGY [address] | PARISA [place] [address] | dysfunction (HCC) | | | | [place], | [place], | with symptomatic | | | | [place] [address] | [place] [address] | bradycardia (Primary | | | | [phone] | [phone] | Dx); Symptomatic | | | | | | PVCs; Tachycardia; | | | | | | Coronary artery | | | | | | disease involving | | | | | | [place] coronary | | | | | | artery of [place] | | | | | | heart [...] encounter Patient Instructions Patient Instructions Vidhi Gillespie, Playroom Attendant - 05/01/2020 3:00 PM PDT1. Incre ase [...] and has received error codes. Referred to [place] [employer] Stay Connected line. Monthly remote monitoring. Device interrogation due in office at [facility]. Janeen Allison ARNP - 05/01/2020 3:00 PM PDTFormatting of th is note might be different from the original. PATIENT NAME: Moe Sanchez : 1960: AGE: 60 y.o. PRIMARY CARE: Kirk French MD OUTPATIENT FOLLOW UP VISIT Date of Service: 05/01/2020 HISTORY OF PRESENT ILLNESS: Moe Sanchez is a 60 y.o. 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 Patient also will need echocardiogram for his next appointment to evaluate his ascending aorta Since that time,on 01/11/2020 he was seen by PCP for follow up. On 01/31/2020 patient called and states that he sees a pain specialist in [place] and they would like him to start [...] Preventative health care Coronary artery disease involving [place] coronary artery of [place] heart without angina pectoris Marijuana use Ascending [...] ONE TABLET UNDER THE TONGUE EVERY 5 [place] NUTES NEEDED FOR CHEST PAIN 250 tablet 0 nortriptyline (PAMELOR) 25 mg capsule Take 25 mg by mouth. [place]-3 Fatty Acids (SALMON OIL-1000 PO) CAPS, one capsule by mouth daily twice daily ondansetron (ZOFRAN ODT) 4 mg disintegrating tablet Take 4 mg by mouth every 8 hours as needed for Nausea. ondansetron (ZOFRAN) 4 mg tablet Take 4 mg by mouth. ONE TOUCH DELICA LANCETS [facility] [...] was found Confirmed by SYDNI SINGLETARY MD ([id number]) on 06/06/2019 3:43:10 PM LAB RESULTS reviewed [...] BNP 48 06/02/2019 I reviewed records from [facility] for office visit on 01/01/2020 ich is summarized in the HPI. RESULTS- I reviewed reports from [facility]: No results found. Above data and testing is reviewed this visit; testing below is historical data unless othe rwise specified. ASSESSMENT: 1. Non-critical Coronary artery disease involving [place] coronary artery of [place] heart [facility] angina pectoris: A.Normal exercise sestamibi stress [...] cannot completely be ru led out. D. [facility] 12/25/13, shows non critical coronary [...] no limitations of ac tivities of the [place] Heart Association functional class. Heart failure stage [...] [facility] on 01/30/2013.Patient had spontaneous PVC'sfr om [...] to go back in 3 days to [place] for an attempt of ablation under [...] at his follow up visit Vidhi Clemente, Playroom Attendant am acting as a scribe on behalf of, and in the prese nce of PARISA Lomas. - Vidhi Gillespie, Playroom Attendant 05/01/2020 12:50 PM IJaneen ARNP, personally performed the services described in this documentati on, as scribed in my presence and it is both accurate and complete. -PARISA Lomas 05/01/2020 Portions of this chart may have been created with Multif[employer] voice recognition software. Occasi onal wrong-word or [...] | | | | | | [place] [address] | | | | | | [phone] | | | | | | | [...] + + | Coronary artery disease involving [place] coronary artery of [place] heart without | | angina pectoris | [...]
--- OUTSIDE RECORDS SUMMARY | ~2020-06-07 | XMS | Encounter Summary ---
Demographics + + + | Address | [address] | | | [place] [address] | + + + | Home Phone [...] Providers + +------+ + | Care Trial Court Justice Name | Role | Phone [...] + + | 03/29/ | Telephone | [facility] | Emmanuel Daniel MD | Diarrhea (Adult) | | 2019 | | GASTROENTEROLOGY | [address], [place] | (stomach cramps and | | | | [address] [place] | [address] [place], [place] | liquid stool) | | | | [address] [place], [place] | [address] | | | | | [address] | | | | | | [phone] | | | +--------+ + + + [...] this afternoon after eating a sandwich from [employer]. He states he takes the medication that dr. Daniel has asked him too ( Bentyl, Benadryl, metamucil and imodium but nothing is helping, he might have a normal bowel movement about 2 -3 days in a row, and then the diarrhea hits. He asks what should he do. I let patient know that his referral to [facility] was authorized and they should be calling [...] | | | | | | [place] [address] | | | | | | [phone] | | | | | | | [...]
--- OUTSIDE RECORDS SUMMARY | ~2020-06-07 | XMS | Encounter Summary ---
Demographics + + + | Address | [address] | | | [place] [address] | + + + | Home Phone [...] Providers + +------+ + | Care Air Brush Operator Name | Role | Phone | [...] 101 | | | | | [address] [place], [place] | [place] [address] | | | | | [address] | [phone] | | | | | [phone] | | | +--------+--------+ + + + [...] PSTRefill Shanell ctronically signed by Geri Bear Mineral Ore Processing Labourer at 10/26/2019 1:47 PM PSTdocumented in this [...] | | | | | | [place] [address] | | | | | | [phone] | | | | | | | | +--------+ + + + + documented as of this encounter Visit Diagnoses Not on filedocumented in this encounter"
--- OUTSIDE RECORDS SUMMARY | ~2020-06-07 | XMS | Encounter Summary ---
Demographics + + + | Address | [address] | | | [place] [address] | + + + | Home Phone [...] + + + + | 11/05/ | [facility] | [facility] | Naresh Mckeon | | | 2009 | Encounter | MED CTR SLEEP | MD Chaya [address] | | | | | CENTER [address] | [address] | | | | | [place] | [place] [address] | | | | | [address] | [phone] | | | | | [phone] | | | +--------+ + + + [...] | | | | | | [place] [address] | | | | | | [phone] | | | | | | | | +--------+ + + + + documented as of this encounter Visit Diagnoses Not on filedocumented in this encounter"
--- OUTSIDE RECORDS SUMMARY | ~2020-06-07 | XMS | Encounter Summary ---
Demographics + + + | Address | [address] | | | [place] [address] | + + + | Home Phone [...] Team Providers + +------+ + | Care Poacher Wringer Operator Name | Role | Phone | + +------+ + PCP | Unavailable | + +------+ + Encounter Details +--------+ + + + + | Date | Type | Department | Care Team | Description | +--------+ + + + + | 02/21/ | [facility] | [facility] | Geri Angel, | | | 2011 | Encounter | MED CTR XRAY [address] | COMMERCIAL SUBCONTRACTOR [address] | | | | | [place] | [place] | | | | | [place] [address] | [id number] | | | | | [phone] | | | +--------+ + + + [...] | | | | | | [place] [address] | | | | | | [phone] | | | | | | | | +--------+ + + + + documented as of this encounter Visit Diagnoses Not on filedocumented in this encounter"
--- OUTSIDE RECORDS SUMMARY | ~2020-06-07 | XMS | Encounter Summary ---
Demographics + + + | Address | [address] | | | [place] [address] | + + + | Home Phone [...] + +------+ + | Care Dining Services Manager Name | Role | Phone [...] 2012 | | CARDIOLOGY [address] | CLEAN ROOM ASSEMBLER [address] | | | | | [place], | [place], [place] | | | | | [place] [address] | [address] | | | | | [phone] | | | +--------+ + + + [...] PDTRecords sent to Dr Adrian leblanc at [facility] in [place]: Demographics, Chart notes 09-05-13, Echo 12-30-12 EKG 09-05-13, 04-24-13 Labs 08-08-13 [facility] 04-03-13, 01-30-13, 02-17-13 They will contact [...] | | | | | | [place] [address] | | | | | | [phone] | | | | | | | | +--------+ + + + + documented as of this encounter Visit Diagnoses Not on filedocumented in this encounter"
--- OUTSIDE RECORDS SUMMARY | ~2020-06-07 | XMS | Encounter Summary ---
Demographics + + + | Address | [address] | | | [place] [address] | + + + | Home Phone [...] Providers + +------+ + | Care Senior Customer Service Representative Name | Role | Phone [...] | and swelling) | | | | [place], | [place], | | | | | [place] [address] | [place] [address] | | | | | [phone] | [phone] | | | | | | | [...] | | | | | | [place] [address] | | | | | | [phone] | | | | | | | | +--------+ + + + + documented as of this encounter Visit Diagnoses Not on filedocumented in this encounter
--- OUTSIDE RECORDS SUMMARY | ~2020-06-07 | XMS | Encounter Summary ---
Demographics + + + | Address | [address] | | | [place] [address] | + + + | Home Phone [...] Providers + +------+ + | Care Marketing Systems Manager Name | Role | Phone [...] | on | GASTROENTEROLOGY | [address], [place] | | | | | [address] [place] | [address] [place], [place] | | | | | [address] [place], [place] | [address] | | | | | [address] | | | | | | [phone] | | | +--------+ + + + [...] | | | | | | [place] [address] | | | | | | [phone] | | | | | | | | +--------+ + + + + documented as of this encounter Visit Diagnoses Not on filedocumented in this encounter"
--- OUTSIDE RECORDS SUMMARY | ~2020-06-07 | XMS | Encounter Summary ---
Demographics + + + | Address | [address] | | | [place] [address] | + + + | Home Phone [...] Providers + +------+ + | Care Team Assembler Name | Role | Phone | [...] | CARDIOLOGY [address] | [address] | Interrogation | | | | [place], | [place], | (Primary Dx); | | | | [place] [address] | [place] [address] | Presence of | | | | [phone] | [phone] | permanent cardiac | | | | [...] Paceart documentation and remote PDF scanned into Switchfly for remote interrogation re sults. Data collected [...] | | | | | | [place] [address] | | | | | | [phone] | | | | | | | [...]
--- OUTSIDE RECORDS SUMMARY | ~2020-06-07 | XMS | Encounter Summary ---
Demographics + + + | Address | [address] | | | [place] [address] | + + + | Home Phone [...] Team Providers + +------+ + | Care Shingle Grader Name | Role | Phone | [...] + + | 03/07/ | Office | [facility] | [place], | S[facility]US BRADYCARDIA | | 2013 | Visit | CARDIOLOGY [address] | PARISA [place] [address] | (Primary Dx); | | | | [place], | [place], | Syncope; Symptomatic | | | | [place] [address] | [place] [address] | PVCs; Pacemaker - | | | | [phone] | [phone] | Medtronic - [id number] | | | [...] Sanchez Date: March 07, 2014 : 1960 Leather Goods Maker: Kailey Pruitt RN Device Recooperer:Medtronic Sense (mV) Impedance (?) Capture (V) Capture (ms) A Lead >5.60 402 1.500 0.09 RV Lead >31.36 522 2.00 0.09 LV Lead Battery Impedance (?): 528 Battery Voltage (V): 2.79 MD Interval (ms): 147 AR Interval (ms): 217 [place] Conduction: Mode Switch Events: 0 % of time: 0 -RING SEWER: <0.1% AP-RING SEWER: 0.1% -VS: 23.8% AP-VS: 76.1% RING SEWER: Magnetic Rate: 85 LINDA: 65 LEAH: Current [...] Pruitt RN 03/07/2014 12:00 Janeen Mccollum AR WIRELESS TECHNICIAN - 03/07/2014 11:07 AM PDT PATIENT NAME: [...] headaches. He paulino d been seen at [facility] a couple times with chest pain and [...] needed for Chest pain. 25 tablet 12 [place]-3 Fatty Acids (SALMON OIL-1000 PO) CAPS, one [...] Sanchez Date: March 07, 2014 : 1960 Leather Goods Maker: Kailey Pruitt RN Device Recooperer:Medopadtronic Sense (mV) Impedance (?) Capture (V) Capture (ms) A Lead >5.60 402 1.500 0.09 RV Lead >31.36 522 2.00 0.09 LV Lead Battery Impedance (?): 528 Battery Voltage (V): 2.79 MD Interval (ms): 147 AR Interval (ms): 217 VA Conduction: Mode Switch Events: 0 % of time: 0 -RING SEWER: <0.1% AP-RING SEWER: 0.1% -VS: 23.8% AP-VS: 76.1% RING SEWER: Magnetic Rate: 85 LINDA: 65 LEAH: Current [...] attenuation cannot completely be ruled out. D. [facility] 12/25/13, shows noncritical coronary artery disease, [...] pain. He is in class II of [place] Heart Association functional class . There are [...] to go back in 3 days to [place] for an attempt of ablation under general [...] palpitations.. He is in class II of [place] Heart Association functional class. There are no [...] made to ensure accuracy; however, inadvertent computerized black pickler errors may be pre sent. Electronically signed by: PARISA Russell 03/07/2014 11:07 documented in this encounter Procedure Notes Kailey Pruitt RN - 03/07/2014 12:01 PM PDTAssociated Order(s): DEVICE INTERROGATIONProcedu re(s): DEVICE INTERROGATIONPre-Procedure Diagnose(s): Sinoatrial node dysfunction (HCC); Syn cope; Symptomatic PVCs; Presence of permanent cardiac pacemaker DEVICE INTERROGATION Name: Moe Sanchez Date: March 07, 2014 : 1960 Leather Goods Maker: Kailey Pruitt RN Device Recooperer:Medopadtronic Sense (mV) Impedance (?) Capture (V) Capture (ms) A Lead >5.60 402 1.500 0.09 RV Lead >31.36 522 2.00 0.09 LV Lead Battery Impedance (?): 528 Battery Voltage (V): 2.79 MD Interval (ms): 147 AR Interval (ms): 217 VA Conduction: Mode Switch Events: 0 % of time: 0 -RING SEWER: <0.1% AP-RING SEWER: 0.1% -VS: 23.8% AP-VS: 76.1% RING SEWER: Magnetic Rate: 85 LINDA: 65 LEAH: Current [...] | | | | | | [place] [address] | | | | | | [phone] | | | | | | | [...] 07, 2014 : | | | 1960 Leather Goods Maker: Kailey Pruitt RN Device | | | Recooperer:Partschannel Sense (mV) Impedance (?) Capture (V) | | | Capture (ms) A Lead >5.60 402 1.500 0.09 RV Lead >31.36 522 2.00 | | | 0.09 LV Lead Battery Impedance (?): 528 Battery Voltage (V): | | | 2.79 MD Interval (ms): 147 AR Interval (ms): 217 VA Conduction: | | | Mode Switch Events: 0 % of time: 0 -RING SEWER: <0.1% AP-RING SEWER: 0.1% -VS: | | | 23.8% AP-VS: 76.1% RING SEWER: Magnetic Rate: 85 LINDA: 65 LEAH: Current [...] | | Date: March 07, 2014DOB: 1960 Leather Goods Maker: Kailey Pruitt RN Device | | Recooperer:Partschannel Sense (mV) Impedance (?) Capture (V) Capture (ms) A Lead >5.60 | | 402 1.500 0.09 RV Lead >31.36 522 2.00 0.09 LV Lead Battery Impedance (?): 528 | | Battery Voltage (V): 2.79 MD Interval (ms): 147 AR Interval (ms): 217 [place] Conduction: | | Mode Switch Events: 0 % of time: 0 -RING SEWER: <0.1% AP-RING SEWER: 0.1% -VS: 23.8% AP-VS: 76.1% | | RING SEWER: Magnetic Rate: 85 LINDA: 65 LEAH: Current [...]
--- OUTSIDE RECORDS SUMMARY | ~2020-06-07 | XMS | Encounter Summary ---
Demographics + + + | Address | [address] | | | [place] [address] | + + + | Home Phone [...] Providers + +------+ + | Care Strategic Partnership Specialist Name | Role | Phone | + +------+ + | Michael Amanda DO | PCP | | + +------+ + Reason for Visit + + + | Reason | Comments | + + + | Follow-up | One month with [facility] 12/25/13 | + + + | Chest Pain | | + + + Encounter Details +--------+---------+ + + + | Date | Type | Department | Care Team | Description | +--------+---------+ + + + | 01/29/ | Office | [facility] | [place], | Other chest pain | | 2013 | Visit | CARDIOLOGY [address] | PARISA [place] [address] | (Primary Dx); Chest | | | | [place], | [place], | pain; Coronary | | | | [place] [address] | [place] [address] | artery disease; | | | | [phone] | [phone] | Hyperlipidemia; | | | | | [...] last week to the emergency room at [facility] with a baljit [facility] pain episode. Patient [...] needed for Chest pain. 25 tablet 12 [place]-3 Fatty Acids (SALMON OIL-1000 PO) CAPS, [...] attenuation cannot completely be ruled out. D. [facility] 12/25/13, shows noncritical coronary artery disease, mild ecstatic change to the le ft main artery, the coronary circulation is right dominant, normal left ventricular size, wa ll thickness and motion, preserved left ventricular systolic function, LVEF is 75%, normal s ystemic blood pressure, successful TR band application to the right radial artery. E. patient was seen on the emergency room at [place] on 01/26/2014, he was ruled out A [...] pain. He is in class II of [place] Heart Association functional class. There are no [...] to go back in 3 days to [place] for an attempt of ablation under general [...] symptoms. He is in class II of [place] Heart [employer] functional class. There are no [...] made to ensure accuracy; however, inadvertent computerized vulnerability researcher errors may be pre sent. Electronically signed [...] | | | | | | [place] [address] | | | | | | [phone] | | | | | | | [...] of unspecified type of vessel, | | [place] or graft | + + | Hyperlipidemia Other and unspecified hyperlipidemia | + + | Symptomatic PVCs Other premature beats | + + | Hypertension Unspecified essential hypertension | + + documented in this encounter
--- OUTSIDE RECORDS SUMMARY | ~2020-06-07 | XMS | Encounter Summary ---
Demographics + + + | Address | [address] | | | [place] [address] | + + + | Home Phone [...] Providers + +------+ + | Care Pit Steward Name | Role | Phone | [...] + + | 11/03/ | Refill | [facility] | Kirk French | Medication Refill | | 2019 | | [facility] | MD Bre[address] | | | | | PRIMARY CARE [address] | | | | | [address] | [place] [address] | | | | | [place], [place] | [phone] | | | | | [address] | | | | | | [phone] | | | +--------+--------+ + + + [...] Miscellaneous Notes Telephone Encounter - Geri Bear Beauty Artist - 11/03/2019 10:05 AM PSTRefill Shanell ctronically signed by Geri Bear Beauty Artist at 11/03/2019 10:05 AM PSTdocumented in this [...] | | 2020 | Visit | | PRAISA [place] [address] | | | | | | [place], | | | | | | [place] [address] | | | | | | [phone] | | | | | | | | +--------+ + + + + documented as of this encounter Visit Diagnoses Not on filedocumented in this encounter"
--- OUTSIDE RECORDS SUMMARY | ~2020-06-07 | XMS | Encounter Summary ---
Demographics + + + | Address | [address] | | | [place] [address] | + + + | Home Phone [...] Team Providers + +------+ + | Care Dampener Operator Name | Role | Phone | [...] + | 06/27/ | Telephone | [facility] | Michael Amanda, | ED Follow-up (s/p | | 2013 | | [facility]IC[facility] [place] | DO [address] | [facility]) | | | | [address] | [place] | | | | | [place] | [address] | | | | | [address] | | | | | | [phone] | | | +--------+ + + + [...] aneurysm may be enlarged, though CT at [facility] showed no changes. He is sending reports to [facility] ([place], [place]) for review by cardiac team there. [...] | | | | | | [place] [address] | | | | | | [phone] | | | | | | | | +--------+ + + + + documented as of this encounter Visit Diagnoses Not on filedocumented in this encounter
--- OUTSIDE RECORDS SUMMARY | ~2020-06-07 | XMS | Encounter Summary ---
Demographics + + + | Address | [address] | | | [place] [address] | + + + | Home Phone [...] Team Providers + +------+ + | Care Milling Machine Set Up Operator Name | Role | Phone | + +------+ + | Kirk French MD | PCP | | + +------+ + Encounter Details +--------+ + + + + | Date | Type | Department | Care Team | Description | +--------+ + + + + | 06/03/ | Hospital | [facility] | Conversion | Back pain, | | 2014 | Encounter | CONVERSION DEP [address] | Transaction, | unspecified location | | | | [address] | Provider Unknown | | | | | [place], [place] | [phone] | | | | | [address] | (Fax) | | | | | [phone] | | | +--------+ + + + [...] + + +---------+ + + | [place]-3 Fatty | CAPS, one capsule by | [...] | | | | | | | #[id number], exp 07/2016 | | | | | [...] | | | | | | [place], | | | | | | [place] [address] | | | | | | [phone] | | | | | | | [...]
--- OUTSIDE RECORDS SUMMARY | ~2020-06-07 | XMS | Encounter Summary ---
Demographics + + + | Address | [address] | | | [place] [address] | + + + | Home Phone [...] Team Providers + +------+ + | Care Ophthalmology Surgical Technician Name | Role | Phone | + +------+ + | Kirk French MD | PCP | | + +------+ + Encounter Details +--------+ + + + + | Date | Type | Department | Care Team | Description | +--------+ + + + + | 12/24/ | Anesthesia | [facility] | Jarett Barakat | | | 2018 | Event | MED CTR MP INTRA OP | P, MD [address] | | | | | [address] | [place], [place] | | | | | [place], [place] | [address] | | | | | [address] | [phone] | | | | | [phone] | | | | | | | Arthur Wesley MD | | | | | | [address] | | | | | | [place], [place] | | | | | | [address] | | | | | | | [...] 12/24/17 1435 by | | eral | [id number] catheter system; | Desmond Teresa RN | [...] EVALUATION Moe Sanchez 57 y.o. male 1960 [id number] Procedure(s) EGD (N/A Mouth) COLONOSCOPY (N/A Rectum) [...] signed by Jarett Barakat MD 12/24/2017 14:08 [facility] nesthesia Preprocedure Evaluation - Jarett Barakat MD - 2017 12:26 PM PST ANESTHESIA PREANESTHESIA EVALUATION Moe Sanchez 57 y.o. male 1960 [id number] Procedure(s): EGD (N/A Mouth) COLONOSCOPY (N/A Rectum) [...] artery disease involving [place] coronary artery of [place] heart without angina pectoris Cannabis abuse, [...] | | | | | | [place] [address] | | | | | | [phone] | | | | | | | [...]
--- OUTSIDE RECORDS SUMMARY | ~2020-06-07 | XMS | Encounter Summary ---
Demographics + + + | Address | [address] | | | [place] [address] | + + + | Home Phone [...] Team Providers + +------+ + | Care Ambulatory Care Nurse Name | Role | Phone [...] | MD [address] | [address] | | | | | hypertension | [address] | [place], | | | | | Sick sinus | [address] | [place] | | | | | syndrome | [place], [place] | [address] | | | | | (HCC) | [address] | Phone: | | | | | Ventricular | Phone: | [phone] | | | | | premature | [phone] | Fax: | | | | | depolarizati | Fax: | [phone] | | | | | on | [phone] | | | | | | Tachycardia, | | | | | | | unspecified | | | | | | | | | | | | | | Atherosclero | | | | | | | tic heart | | | | | | | disease of | | | | | | | [place] | | | | | [...] + | 05/01/ | Procedure | [facility] | Margarito Jaeger | Pacemaker | | 2020 | visit | CARDIOLOGY [address] | MD Fabrice [address] | reprogramming/check | | | | [place], | [address] [place] | [place] DELETE | | | | [place] [address] | [facility] [place] [address] | (Primary Dx); | | | | [phone] | [phone] | Pacemaker; | | | | | [...] monitoring. Device interrogation due in office at [facility]. documented in t his encounter Plan [...] | | | | | | [place] [address] | | | | | | [phone] | | | | | | | [...] received | | |error codes. Referred to [employer] Stay Connected line. Monthly | | |remote monitoring. | | |Device interrogation due in office at [facility]. | | | | | + [...] and has received error codes. Referred to [facility] Stay | | Connected line. Monthly [...] has received error codes. Referred to [employer] Stay Connected line. Monthly remote monitoring. | [...]
--- OUTSIDE RECORDS SUMMARY | ~2020-06-07 | XMS | Encounter Summary ---
Demographics + + + | Address | [address] [place] [address] [address] | | | [place] [address] | + + + | Home Phone [...] [place] | | | | | [address] | | + + + + + Care Team Providers + +------+ + | Care Lunch Wagon Operator Name | Role | Phone | [...] | | | | l weight | [place], [place] | | | | | | loss | [address] | | | | | | Procedures | Phone: | | | | | | CONSULT TO | [phone] | | | | | | NON - [facility] | Fax: | | | | | | PROVIDER | [phone] | | | | | | CONSULT [...] 2019 | | Center at [facility] [address] | MD [address] | change location of | | | | [address] | [place], [place] | referral ) | | | | for Health and | [address] | | | | | [place] [address] | [phone] | | | | | [place], [place] | | | | | | [address] | | | | | | [phone] | | | +--------+ + + + [...]
--- OUTSIDE RECORDS SUMMARY | ~2020-06-07 | XMS | Encounter Summary ---
Demographics + + + | Address | [address] | | | [place] [address] | + + + | Home Phone [...] Providers + +------+ + | Care Tube Closing Machine Operator Name | Role | Phone [...] [address] | | | | | [address] | [place], [place] | | | | | [phone] | [address] | | | | | | [phone] | | | | | | | [...] | | | | | | [place] [address] | | | | | | [phone] | | | | | | | [...]
--- OUTSIDE RECORDS SUMMARY | ~2020-06-07 | XMS | Encounter Summary ---
Demographics + + + | Address | [address] | | | [place] [address] | + + + | Home Phone [...] Providers + +------+ + | Care Technical Consultant Name | Role | Phone | [...] [place] | | | | | [address] [place], [place] | [address] | | | | | [address] | | | | | | [phone] | | | +--------+ + + + [...] he would like to be transferred to [facility]. Routing to clinical staff. Provider/Nurse: Dr. Daniel Call back number: [phone] documented in this encou nter Plan of [...] | | | | | | [place] [address] | | | | | | [phone] | | | | | | | | +--------+ + + + + documented as of this encounter Visit Diagnoses Not on filedocumented in this encounter
--- OUTSIDE RECORDS SUMMARY | ~2020-06-07 | XMS | Encounter Summary ---
Demographics + + + | Address | [address] | | | [place] [address] | + + + | Home Phone [...] Team Providers + +------+ + | Care Pantograph Watcher Name | Role | Phone | + [...] | Procedure | [facility] [place] | Margartio Jaeger | Pacemaker | | 2017 | visit | CARDIOLOGY [address] | MD Fabrice [address] | reprogramming/check | | | | [place], | [address] [place] | DO [place]LETE | | | | [place] [address] | [place] [address] | (Primary Dx); | | | | [phone] | [phone] | Pacemaker - | | | | [...] | | | | | | [place] [address] | | | | | | [phone] | | | | | | | [...]
--- OUTSIDE RECORDS SUMMARY | ~2020-06-07 | XMS | Encounter Summary ---
Demographics + + + | Address | [address] | | | [place] [address] | + + + | Home Phone [...] Team Providers + +------+ + | Care Eyewear Manufacturing Tech Name | Role | Phone | [...] disease involving | | | | [place], | [place], | habematolel coronary | | | | [place] [address] | [place] [address] | artery without | | | | [phone] | [phone] | angina pectoris | | | | [...] | | | | | | [place] [address] | | | | | | [phone] | | | | | | | [...] MD | | | | | | ([id number]) on 08/29/2015 | | | | | [...] + + | Coronary artery disease involving habematolel coronary artery without angina pectoris - | | Primary | + + documented in this encounter"
--- OUTSIDE RECORDS SUMMARY | ~2020-06-07 | XMS | Encounter Summary ---
Demographics + + + | Address | [address] | | | [place] [address] | + + + | Home Phone [...] Team Providers + +------+ + | Care Organizational Effectiveness Consultant Name | Role | Phone | [...] + | 06/23/ | Office | [facility] | Silvia, | Ascending thoracic | | 2016 | Visit | CARDIOLOGY [address] | PARISA [place] [address] | aortic aneurysm | | | | [place], | [place], | ([facility]) (Primary Dx); | | | | [place] [address] | [place] [address] | Coronary artery | | | | [phone] | [phone] | disease involving | | | | | | [place] coronary | | | | | | artery of [place] | | | | | | [...] of non-critical coronary artery d isease involving [place] coronary artery of [place] heart without angina pectoris, essential h [...] cardiac complaints. He is getting ready to [place] [...] Preventative health care Coronary artery disease involving [place] coronary artery of [place] heart without angina pectoris Cannabis abuse, [...] 3rd dose, call 911 100 tablet 3 [place]-3 Fatty Acids (SALMON OIL-1000 PO) CAPS, one [...] ASSESSMENT: 1. Non-critical Coronary artery disease involving [place] coronary artery of [place] heart wi thout angina pectoris: A. Normal [...] pain. He is in class I-II of [place] Heart Associ[employer] n functional class. There are [...] to go back in 3 days to [place] for an attempt of ablation under general [...] this chart may have been created with [employer] voice recognition software. Occasi onal wrong-word [...] | | | | | | [place] [address] | | | | | | [phone] | | | | | | | [...] the | | | | PDT | [place] coronary | results section. | | | | | artery of [place] | | | | | | [...] MD | | | | | | ([id number]) on 06/23/2016 | | | | | [...] + + | Coronary artery disease involving [place] coronary artery of [place] heart without | | angina pectoris [...]
--- OUTSIDE RECORDS SUMMARY | ~2020-06-07 | XMS | Encounter Summary ---
Demographics + + + | Address | [address] | | | [place] [address] | + + + | Home Phone [...] Team Providers + +------+ + | Care Sieve Maker Name | Role | Phone | [...] | 05/07/ | Telephone | [facility] [place] | Silvia, | Other | | 2020 | | CARDIOLOGY [address] | PARISA [address] | (pacemaker/MRI/shoul | | | | [place], | [place], | good) | | | | [place] [address] | [place] [address] | | | | | [phone] | [phone] | | | | | | | [...] was supposed to have an MRI in [place] at [facility] because his pacemaker is not currently MRI [...] of Tiffanie maddox as a contact at [place] with a number of [phone] opt 2. It was not clear if [...] | | | | | | [place] [address] | | | | | | [phone] | | | | | | | | +--------+ + + + + documented as of this encounter Visit Diagnoses Not on filedocumented in this encounter"
--- OUTSIDE RECORDS SUMMARY | ~2020-06-07 | XMS | Encounter Summary ---
Demographics + + + | Address | [address] [place] [address] [address] | | | [place] [address] | + + + | Home Phone [...] [place] | | | | | [address] | | + + + + + Care Team Providers + +------+ + | Care Reinforcement Maker Name | Role | Phone | [...] Yao | | | | | at [facility] | [facility] | | | | | [address] | [place] [address] | | | | | [address] | | | | | | [place], [address] [place] [address] | | | | | | [place], [place] | | | | | | [address] | | | | | | [phone] | | | +--------+ + + + [...] view image for the detailed interpretation from [facility] results. | CARDIOLOGY | + + + + + + + + | Performing | Address | City/State/Zipcode | Phone Number | | Organization | | | | + + + + + | [facility] | [address] | [place], [place] | | | CARDIOLOGY | [address] | [address] | | + + + + + documented in this encounter Visit Diagnoses Not on filedocumented in this encounter"
--- OUTSIDE RECORDS SUMMARY | ~2020-06-07 | XMS | Encounter Summary ---
Demographics + + + | Address | [address] | | | [place] [address] | + + + | Home Phone [...] Providers + +------+ + | Care Immigration Coordinator Name | Role | Phone | [...] | | | | [place]STOP[place]IN[place] | [phone] | | | | | [address] | | | | | | [phone] | | | +--------+ + + + [...] | | | | | | [place] [address] | | | | | | [phone] | | | | | | | [...]
--- OUTSIDE RECORDS SUMMARY | ~2020-06-07 | XMS | Encounter Summary ---
Demographics + + + | Address | [address] | | | [place] [address] | + + + | Home Phone [...] Team Providers + +------+ + | Care Dba Name | Role | Phone | + [...] + + | 06/22/ | Telephone | [facility] | Emmanuel Daniel MD | Lab Order | | 2019 | | GASTROENTEROLOGY | [address], [place] | | | | | [address] [place] | [address] [place], [place] | | | | | [address] [place], [place] | [address] | | | | | [address] | | | | | | [phone] | | | +--------+ + + + [...] He wants to have labs ordered at [facility] ut he wants to wait to see [...] | | | | | | [place] [address] | | | | | | [phone] | | | | | | | | +--------+ + + + + documented as of this encounter Visit Diagnoses Not on filedocumented in this encounter
--- OUTSIDE RECORDS SUMMARY | ~2020-06-07 | XMS | Encounter Summary ---
Demographics + + + | Address | [address] | | | [place] [address] | + + + | Home Phone [...] Providers + +------+ + | Care Associate Attorney Name | Role | Phone | [...] + | 01/02/ | Telephone | [facility] | Daljit Singletary, | Other (chest pain) | | 2019 | | CARDIOLOGY [address] | MD [address] [place] | | | | | [place], | [place], | | | | | [place] [address] | [place] [address] | | | | | [phone] | [phone] | | | | | | | [...] evaluated. He re fused to go to [facility], will come to [facility]. He stated he would drive himself. I ca utioned him not too. He refused and will come to [facility] ..................................... .....Mariana Valentine RN on 01/02/19 at [...] | | | | | | [place] [address] | | | | | | [phone] | | | | | | | | +--------+ + + + + documented as of this encounter Visit Diagnoses Not on filedocumented in this encounter"
--- OUTSIDE RECORDS SUMMARY | ~2020-06-07 | XMS | Encounter Summary ---
Demographics + + + | Address | [address] | | | [place] [address] | + + + | Home Phone [...] Providers + +------+ + | Care Compliance Counsel Name | Role | Phone | [...] | CARDIOLOGY [address] | [address] [place] | Interrogation | | | | [place], | [place], | (Primary Dx); | | | | [place] [address] | [place] [address] | Pacemaker; | | | | [phone] | [phone] | Sinoatrial node | | | | [...] (HCC)Date of Remote Interrogation: 2018 Refer to [employer] documentation and remote PDF scanned into [employer] for remote interrogation re sults. Data collected [...] | | | | | | [place] [address] | | | | | | [phone] | | | | | | | [...]
--- OUTSIDE RECORDS SUMMARY | ~2020-06-07 | XMS | Encounter Summary ---
Demographics + + + | Address | [address] | | | [place] [address] | + + + | Home Phone [...] + +------+ + | Care Home Health Care Case Manager Name | Role | Phone [...] 2016 | | CARDIOLOGY [address] | HEAD MACHINIST [address] | | | | | [place], | [place], [place] | | | | | [place] [address] | [address] | | | | | [phone] | | | +--------+--------+ + + + [...] | | | | | | [place] [address] | | | | | | [phone] | | | | | | | | +--------+ + + + + documented as of this encounter Visit Diagnoses Not on filedocumented in this encounter"
--- OUTSIDE RECORDS SUMMARY | ~2020-06-07 | XMS | Encounter Summary ---
Demographics + + + | Address | [address] | | | [place] [address] | + + + | Home Phone [...] + +------+ + | Care Spike Machine Operator Name | Role | Phone | + +------+ + | Kirk French MD | PCP | | + +------+ + Encounter Details +--------+---------+ + + + | Date | Type | Department | Care Team | Description | +--------+---------+ + + + | 01/25/ | Surgery | [facility] | Daljit Singletary, | CV LHC | | 2019 | | MED CTR CV INTRA OP | [address] | | | | | [address] | [place], | | | | | [place] | [place] [address] | | | | | [address] | [phone] | | | | | [phone] | | | +--------+---------+ + + + [...] as a collagen plugis used on the roosevelt triny site to close the site, you [...] by your healthcare provider Date Last Reviewed: 09/22/201619996803-3526 [employer]. [address] [place] [address]. All righ ts reserved. This information is [...] of non-critical coronary artery d isease involving [place] coronary artery of qu[place] heart without angina pectoris, essential h ypertension, [...] Preventative health care Coronary artery disease involving [place] coronary artery of quinault heart without angina pectoris Cannabis abuse, daily [...] 3RD DOSE, CALL 911 100 tablet 3 [place]-3 Fatty Acids (SALMON OIL-1000 PO) CAPS, one capsule by mouth daily twice daily ondansetron (ZOFRAN ODT) 4 mg disintegrating tablet Take 4 mg by mouth. ONE TOUCH DELICA LANCETS [facility] [...] was found Confirmed by ANGELA MARADIAGA MD ([id number]) on 01/03/2019 8:10:39 PM LAB RESULTS reviewed [...] ASSESSMENT: 1. Non-critical Coronary artery disease involving [place] coronary artery of [place] heart [facility] [...] Symptoms with moderate exertion of t he [place] Heart [employer] functional class. Heart failure stage [...] [facility] on 01/30/2013. Patient had spontaneous PVC's [...] go back in 3 days t o [place] for an attempt of ablation under general [...] he has any further problems Christine Clemente Sawmill Supervisor am acting as a scribe on behalf of, and in the pres ence of PARISA Lomas. - Christine M Sheoships, Sawmill Supervisor 01/11/2019 13:46 I, PARISA Lomas, personally performed the services described in this documentati on, as scribed in my presence and it is both accurate and complete. -PARISA Lomas 01/11/2019 Portions of this chart may have been created with [employer] voice recognition software. Occasi onal wrong-word or [...] | | | | | | [place] [address] | | | | | | [phone] | | | | | | | [...] (1960) MEDICAL RECORD NUMBER: | | | [id number] OF PROCEDURE: 01/25/2019 MANAGER UI: Daljit | | | MD Gemini PROCEDURES [...] Sanchez, (1960) | | OF PROCEDURE: 01/25/2019PRIMARY PLOW AND BORING MACHINE TENDER: Daljit Singletary MD PROCEDURES | [...] or lesion | | type, unspecified whether quinault or transplanted heart | + + documented [...]
--- OUTSIDE RECORDS SUMMARY | ~2020-06-07 | XMS | Encounter Summary ---
Demographics + + + | Address | [address] | | | [place] [address] | + + + | Home Phone [...] Providers + +------+ + | Care Paper Making Machine Operator Name | Role | [...] + | 01/03/ | Office | [facility] | Silvia, | CAD (coronary artery | | 2012 | Visit | CARDIOLOGY [address] | Janeen, GIS COORDINATOR [address] | disease) (Primary | | | | [place], | [place], | Dx); Bradycardia; | | | | [place] [address] | [place] [address] | HTN (hypertension); | | | | [phone] | [phone] | Lightheadedness | | | | | [...] tablet Take 1,000 mg by mouth Daily. [place]-3 Fatty Acids (SALMON OIL-1000 PO) CAPS, one [...] t o the emergency department at [facility] in [place], [place]. EKG showed normal s inus rhythm [...] Refer patient to an electrophysiology specialist in [place] for further evaluation for P VC's ablation. I have given verbal instructions and written material for patient to read mo re about the procedure. 2. Check blood pressure and pulse twice daily for two weeks and return the log to our offic e. 3. Followup appointment after patient's appointment with customer engineering specialist/ablation. I, PARISA Russell, saw this patient under the direct supervision of Daljit Singletary MD Portions of this report were transcribed using voice recognition software. Every effort wa s made to ensure accuracy; however, inadvertent computerized service center supervisor errors may be pre sent. documented [...] | | | | | | [place] [address] | | | | | | [phone] | | | | | | | | +--------+ + + + + documented as of this encounter Visit Diagnoses + + | Diagnosis | + + | CAD (coronary artery disease) - Primary Coronary atherosclerosis of unspecified type | | of vessel, [place] or graft | + + | Bradycardia Other specified cardiac dysrhythmias | + + | HTN (hypertension) Unspecified essential hypertension | + + | Lightheadedness Dizziness and giddiness | + + documented in this encounter
--- OUTSIDE RECORDS SUMMARY | ~2020-06-07 | XMS | Encounter Summary ---
Demographics + + + | Address | [address] | | | [place] [address] | + + + | Home Phone [...] Providers + +------+ + | Care Sales Advisory Manager Name | Role | Phone | [...] + + | 12/09/ | Telephone | [facility] | Emmanuel Daniel MD | Appointment (EGD, | | 2017 | | GASTROENTEROLOGY | [address], [place] | colon Rescheduled to | | | | [address] [place] | [address] [place] | December 24 due to | | | | [address] [place], [place] | [address] | illness) | | | | [address] | | | | | | [phone] | | | +--------+ + + + [...] | | | | | | [place] [address] | | | | | | [phone] | | | | | | | | +--------+ + + + + documented as of this encounter Visit Diagnoses Not on filedocumented in this encounter"
--- OUTSIDE RECORDS SUMMARY | ~2020-06-07 | XMS | Encounter Summary ---
Demographics + + + | Address | [address] | | | [place] [address] | + + + | Home Phone [...] Providers + +------+ + | Care Database Software Technician Name | Role | Phone | + +------+ + | Michael Amanda DO | PCP | | + +------+ + Encounter Details +--------+ + + + + | Date | Type | Department | Care Team | Description | +--------+ + + + + | 05/11/ | Hospital | [facility] | Conversion | Lumbago; | | 2013 | Encounter | [facility] | Transaction, | Postlaminectomy | | | | [address] | Provider Unknown | syndrome, cervical | | | | [place], [place] | | region; Cervicalgia | | | | [address] | (Fax) | | | | | [phone] | | | +--------+ + + + [...] Date of Service: 05/11/14 1146 Status: Signed Cake Puncher: Christine Mcgraw Report called to Brittany morejon [...] | | | | | | [place] [address] | | | | | | [phone] | | | | | | | [...]
--- OUTSIDE RECORDS SUMMARY | ~2020-06-07 | XMS | Encounter Summary ---
Demographics + + + | Address | [address] | | | [place] [address] | + + + | Home Phone [...] | | | CENTER [address] | [address] | (Primary Dx) | | | | [place], [place] | [place], [place] | | | | | [address] | [address] | | | | | [phone] | | | +--------+ + + + [...] Hart MD - 06/21/2018Please follow-up with the [facility]. Return for dizziness, chest pain, shortness of [...] + + + +---------+ + + | [place]-3 Fatty | CAPS, one capsule by [...] might be d ifferent from the original. [facility] oMe Sanchez Emergency Department Encounter Note [address] [place] [address] PCP:Kirk French MD x2500 eMERGENCY dEPARTMENT eNCOUnter [...] COLONOSCOPY; Surgeon: Emmanuel Daniel MD; Location: [facility] MEDICAL PROCEDURE UNIT HARDWARE REMOVAL KNEE SURGERY 2003 meniscus-right LAMINECTOMY 1991 L3-4 LUMBAR DISCECTOMY 1991 L3-4 LUMBAR FUSION 01/2011 6 spine fusions neck fusion 08/10/2012 [place] NECK SURGERY PACEMAKER PLACEMENT 06/14/09 SHOULDER SURGERY 03/22/13 SINUS SURGERY 1997 SPINAL FUSION STOMACH SURGERY UPPER GASTROINTESTINAL ENDOSCOPY N/A 12/24/2017 Procedure: EGD; Surgeon: Emmanuel Daniel MD; Location: [facility] MEDICAL PROCEDURE UNIT VASECTOMY CURRENT MEDICATIONS [...] patient that appointment is due in Cardiology [facility] Natural Products (OSTEO [...] DOSE, CALL 911Disp-100 tablet, R-3 , Normal [place]-3 Fatty Acids (SALMON OIL-1000 PO) CAPS, one capsule by mouth daily twice daily ONE TOUCH DELICA LANCETS [facility] Check glucose as needed for hypoglycemiaDisp-100 each, R-3, N ormal pravastatin (PRAVACHOL) 40 MG tablet take 1 tablet by mouth NIGHTLYDisp-90 tablet, R-3, Nor mal promethazine (PHENERGAN) 25 mg tablet Take 25 mg by mouth every 8 hours as needed.Medicatio n has a BLACK BOX Warning or Severe Contraindications. Consult references such as [employer] for further information. rOPINIrole (REQUIP) 1 mg tablet Take 1 tablet by mouth nightly.R-0, Historical Med UNABLE TO FIND Take 1 tablet by mouth Daily. MARINE-Y5Idhfzamkyz Med UNCODED MEDICATION Diagnosis: Obstructive Sleep Apnea ICD-9: 327.23 Length of Need: 99 MonthsDisp-1 Device, R-0, CafgzA4930 -Nasal Pillows, W3496-Jifqs Mask, A 7030- Full Face Mask, L6087-Wwtios Humidifier, X3973-Yyzlvn Tubing, O4174-Udtoutsl, I2024-Rl instrap A7039/A703 8-Filters valACYclovir (VALTREX) 1 g [...] deficits noted, no facial assymetry noted. Equal child caregiver private home in all extremities EKG Interpretation Interpreted by emergency department physician Rhythm: Atrial paced. Rate: 70 [place]: normal Ectopy: none Conduction: P wave [...] further reassurance. He is encouraged follow-up with teacher specialist. Follow-up Information PARISA Lomas In 1 day. Specialty: Nurse Practitioner Contact information: [place] [address] Discharge Medication List as of 06/21/2018 13:01 Discharge Instructions Please follow-up with the teacher specialist. Return for dizziness, chest pain, shortness of br eath. FINAL IMPRESSION 1. Chest pain, unspecified type Acute Portions of this chart may have been created with doxo voice recognition software. Occasi onal wrong-word or [...] | | | | | | [place], | | | | | | [place] [address] | | | | | | [phone] | | | | | | | [...] W?MRN: | | | | | | [id number] | | | [id number] | | | his | | | [...] | | | ent/60 | | | [id number] | | | -5586- | | | [...] | | | St. | | | [place] | | | y | | | [...] | | | ext. | | | [address] | | | or go | | [...] | | | M.D. | | | Naval Designer | | | al | | [...] [address] | [place] | [phone] | | [facility] | | [address] | | | - LABORATORY | | [...] [address] | [place]RISTOPH Nguyen | [phone] | | [facility] | | [address] | | | - LABORATORY | | [...] | [address] | [place] | [phone] | | [facility] | | [address] | | | - LABORATORY | | [...] | mL/min/1.73m2 | APOLONIA | | | NAURUAN | RATE,ESTIMATED | | MEDICAL | | | | mL/min/1.85s9Dudy than | | CENTER - | | [...] ST. | [address] | [place], [place] | [phone] | | [facility] | | [address] | | | - LABORATORY | | [...] ST. | [address] | [place], [place] | [phone] | | [facility] | | [address] | | | - LABORATORY | | [...] + | [address] | [address] | [place]STOP[place] | [phone] | | [facility] | | [address] | | | - LABORATORY | | [...] MD | | | | | | ([phone]) on 06/22/2018 | | | | | [...]
--- OUTSIDE RECORDS SUMMARY | ~2020-06-07 | XMS | Encounter Summary ---
Demographics + + + | Address | [address] | | | [place] [address] | + + + | Home Phone [...] + +------+ + | Care Medical Records Auditor Name | Role | Phone | [...] + | 06/26/ | Office | [facility] | Geri Angel, | Coronary artery | | 2015 | Visit | CARDIOLOGY [address] | STOCK PARTS INSPECTOR [address] | disease involving | | | | [place], | St [place], [place] | [place] coronary | | | | [place] [address] | [address] | artery without | | | | [phone] | | angina pectoris | | | [...] it. He is planning to travel to [place] in the ve ry near future for up to a month due to his pgfszh-sb-jms having a significant stroke there MEDICAL, SURGICAL, [...] involving [place] coronary artery without angina pectoris Cannabis abuse, [...] 3rd dose, call 911 25 tablet 11 [place]-3 Fatty Acids (SALMON OIL-1000 PO) CAPS, one capsule by mouth daily twice daily ONE TOUCH DELICA LANCETS [facility] Check glucose as needed [...] Daily. to reduce urinary frequenc y Lot #[id number], exp 07/2016 21 capsule 0 Specialty Vitamins [...] INTERROGATION REVIEWED BY: PARISA Velazquez DEVICE IDENTIFICATION: Inspector Production Plastic Parts: Medtronic. Leads: Right atrium and right ventricle [...] to go back in 3 days to [place] for an attempt of ablation under general [...] dizziness. He is in class I-II of [place] [employer] functional class. T here are [...] this chart may have been created with [employer] voice recognition software. Occasi onal wrong-word or [...] INTERROGATION REVIEWED BY: PARISA Velazquez DEVICE IDENTIFICATION: Inspector Production Plastic Parts: Coin. Leads: Right atrium and right ventricle (dual [...] | | | | | | [place] [address] | | | | | | [phone] | | | | | | | [...] PARISA Velazquez DEVICE IDENTIFICATION: | | | Inspector Production Plastic Parts: Coin. Leads: Right atrium and right | | [...]
--- OUTSIDE RECORDS SUMMARY | ~2020-06-07 | XMS | Encounter Summary ---
Demographics + + + | Address | [address] | | | [place] [address] | + + + | Home Phone [...] Providers + +------+ + | Care Fur Buyer Name | Role | Phone | [...] | | | | CHRISTOPH DINH | [phone] | | | | | [address] | | | | | | [phone] | | | +--------+ + + + [...] + + + +---------+ + + | [place]-3 Fatty | CAPS, one capsule by | [...] | | | | | | | #[id number], exp 07/2016 | | | | | [...] | | | | | [place], | | | | | | [place] [address] | | | | | | [phone] | | | | | | | [...]
--- OUTSIDE RECORDS SUMMARY | ~2020-06-07 | XMS | Encounter Summary ---
Demographics + + + | Address | [address] | | | [place] [address] | + + + | Home Phone [...] Providers + +------+ + | Care Day Habilitation Supervisor Name | Role | Phone | [...] 2019 | | GASTROENTEROLOGY | [address], [place] | | | | | [address] [place] | [address] [place], [place] | | | | | [address] [place], [place] | [address] | | | | | [address] | | | | | | [phone] | | | +--------+ + + + [...] and cursing; he stated he went to [place] [facility] last night with sto mach cramps, nausea; they gave imodium IV; he is now on his day of no food or able to ke ep fluids down; he refuses to call [facility] at this time to find out [...] Provider/Nurse: Dr. Daniel / Darryn Call back number:[phone] elephone Encounter - Lisa Bonner RN - 05/08/2019 2:04 PM PDTReturned call to patient; suggested he conta ct [facility]; provided the toll free number listed from the referral; [phone]. He s tated he was not sure he wanted to go now because it is taking so long; advised it can take a while for referrals to get approved, then paperwork gathered and sent; once received the [facility] reviews and assigns; he will call but [...] anywhere with the numb er provided to [facility] he will contact this clinic. elephone Encounter - Anastacio Bennett - 05/08/2019 1:46 PM PDTName of Caller:Moe Sanchez "Amilcar" Name of Patient:Moe Sanchez "Amilcar" Reason for call: Patient called and wanted to know the status of his referral to [facility]. Pham ent stated that has not received a call from them and informed patient that the clinical sta ff re-faxed referral to [facility] on 04/10/19. Patient wanted to speak with our packing room supervisor but e was unavailable. Patient didn't have a pen and paper to write her number done. Patient sta kevin that he going to head to the hospital since he in severe pain/IBS. Routing to clinical gena warner. Provider/Nurse: Dr. Daniel/ Darryn Severiano back number: [phone] documented in this [facility] Plan of Treatment +--------+ + [...] | | | | | | [place] [address] | | | | | | [phone] | | | | | | | | +--------+ + + + + documented as of this encounter Visit Diagnoses Not on filedocumented in this encounter
--- OUTSIDE RECORDS SUMMARY | ~2020-06-07 | XMS | Encounter Summary ---
Demographics + + + | Address | [address] | | | [place] [address] | + + + | Home Phone [...] Providers + +------+ + | Care Heel Wheeler Name | Role | Phone | [...] | [address] | [place] [address] | | | | | [place] | [phone] | | | | | [address] | | | | | | [phone] | | | +--------+ + + + [...] 03/13/2014 10:56 AM FENG Sosa called from [facility] to let Dr. Demarco know that she [...] surgeries. His last MRI was done at [facility]. Whit states the MRI is over [...] | | | | | | [place] [address] | | | | | | [phone] | | | | | | | | +--------+ + + + + documented as of this encounter Visit Diagnoses Not on filedocumented in this encounter"
--- OUTSIDE RECORDS SUMMARY | ~2020-06-07 | XMS | Encounter Summary ---
Demographics + + + | Address | [address] | | | [place] [address] | + + + | Home Phone [...] Providers + +------+ + | Care Division Sales Manager Name | Role | Phone [...] [place] | | | | | | [address] | | | | | | [phone] | | | | | | | [...] | | | | | | [place] [address] | | | | | | [phone] | | | | | | | | +--------+ + + + + documented as of this encounter Visit Diagnoses Not on filedocumented in this encounter"
--- OUTSIDE RECORDS SUMMARY | ~2020-06-07 | XMS | Encounter Summary ---
Demographics + + + | Address | [address] | | | [place] [address] | + + + | Home Phone [...] + +------+ + | Care Help Desk Support Specialist Name | Role | Phone [...] Refill | | 2013 | | [facility] [place] | DO [address] | | | | | [address] | [place] | | | | | [place], [place] | [address] | | | | | [address] | | | | | | [phone] | | | +--------+--------+ + + + [...] | | | | | | [place] [address] | | | | | | [phone] | | | | | | | | +--------+ + + + + documented as of this encounter Visit Diagnoses Not on filedocumented in this encounter"
--- OUTSIDE RECORDS SUMMARY | ~2020-06-07 | XMS | Encounter Summary ---
Demographics + + + | Address | [address] | | | [place] [address] | + + + | Home Phone [...] Providers + +------+ + | Care Research Home Economist Name | Role | Phone | [...] | | CARDIOLOGY [address] | | | | | [place], | [place], | | | | | [place] [address] | [place] [address] | | | | | [phone] | [phone] | | | | | | | [...] | | | | | | [place] [address] | | | | | | [phone] | | | | | | | [...] + | [facility] | [address] | [place] | [phone] | | [facility] | | [address] | | | - LABORATORY | | | | + + + + + | [facility] | [address] | [place], [place] | | | [facility] | | [address] | | | - [...] | | | | | [facility] | | | | | - LABORATORY | | | | + +---------+ + + documented in this encounter Visit Diagnoses Not on filedocumented in this encounter"
--- OUTSIDE RECORDS SUMMARY | ~2020-06-07 | XMS | Clinical Summary ---
Demographics + + + | Address | [address] | | | [place] [address] | + + + | Home Phone [...] Providers + +------+ + | Care Senior Analytical Chemist Name | Role | Phone | [...] | | + + + +---------+------+------+-------+ | [place]-3 Fatty | CAPS, one capsule by | [...] | | | | | | | teller coronary | | | | | | | | artery of teller | | | | | | | [...] automatically from request for surgery | | [id number] | + + + + + | Diarrhea, unspecified type | 01/15/2020 | + + + + + | Overview: Added automatically from request for surgery | | [id number] | + + + + + | Unintentional weight loss | 01/15/2020 | + + + + + | Overview: Added automatically from request for surgery | | [id number] | + + + + + | Opioid type dependence, continuous | 01/15/2020 | + + + + + | Overview: Added automatically from request for surgery | | [id number] | + + + + + | Allergy to opioid analgesic | 01/15/2020 | + + + + + | Overview: Added automatically from request for surgery | | [id number] | + + + + + | [...] injury (From [facility] 1980 1984 | + + + + [...] Coronary artery disease involving teller coronary artery of | 12/21/2013 | | teller heart without angina pectoris | | + [...] attenuation cannot | | completely be ruled out.[facility] 12/25/13, shows non critical [...] ventricular arrhythmia performed by Dr. Gambino at [facility] on 01/30/2013. Patient had spontaneous [...] back in 3 days to | | [place] for an attempt of ablation under general [...] IMPLANTED GENERATOR | | Medtronic DDD [id number] 06/14/09 RV LEAD Medtronic Active | | Bipolar CapSureFix 4076 [id number] 06/14/09 A LEAD Medtronic | | Active Bipolar CapSurFix 4076 [id number] 06/14/09 | + + + +---+ | [...] Heart Cath, 02/29/2012, LVEF is 65%, [facility], Daljit Singletary, | | [facility] Myocardial Gated Stress Test, 05/25/2009, EF 53 | | % during rest and 52% during stress. [facility], | | [place]Persantine Sestamibi Stress Test, 06/14/2008, LVEF is | | 60%, [facility], Daljit MorenowanL 12/25/13, shows noncritical [...] Plan: Nonobstructive CAD noted | | on [facility] from 2013, no EKG [...] + | 05/30/ | Telephone | Family Rebecca | Kirk French | Medication Reaction | [...] Other ([facility] | 2019 | | | MD | [...] | Cardiology | Shanique Vega Other | 2019 | | | PARISA Veronn | (pacemaker/MRI/shoul | | | | | | good) | +--------+ + + + + | 05/03/ | Telephone | Family Medicine | Kirk French | Medication Orders | 2019 | | | MD Brea | | +--------+ + + + + | 05/02/ | Telephone | Cardiology | Silvia | Results | | 2020 | | | PARISA Vernon | | +--------+ + + + + | 05/01/ | Office | Cardiology | Silvia, | Sinoatrial node | | 2020 | Visit | | PARISA Vernon | [...] | | | | | artery of teller | | | | | | heart without angina | | | | | | pectoris; Essential | | | | | | hypertension; | | | | | | Syncope, unspecified | | | | | | syncope type; | | | | | | Ascending thoracic | | | | | | aortic aneurysm | | | | | | ([facility]); | | | | | | Hyperlipidemia, [...] + + | Mother | | | ME | | | | (Age | | [...] | | | | | | [place], | | | | | | [place] [address] | | | | | | [phone] | | | | | | | [...] Left: | CAMERON | | 09/27/ | [id number] | | - [id number]: | | Ureter | [employer] | | 2020 | / | | Qty: 1 on 04/13/2019 by | | | - CAM[place]ON | | | /[id number] | | Matthew Uriarte MD at | | | | | | 56 | | [facility] | | | | | | | | [facility] | | | | | [...] | monitoring.Device interrogation due in office at [facility]. | | |Data collected by Shabana Lama [...] : 1960: AGE: 60 y.o.Pacemaker Evaluation ReportJune | | 2019Reason for evaluation: routineIndication for pacemaker: Sinoatrial node dysfunction | | ([facility]) (I49.5, 427.81); Pacemaker (Z95.0, V45.01); Pacemaker reprogramming/check [...] has received error codes. Referred to [facility] Stay | | Connected line. Monthly remote monitoring.Device interrogation due in office at [facility]. | |Underlying rhythm: Sinus rhythm 72-75 [...] and has received error codes. Referred to [facility] Stay Connected line. Monthly remote monitoring. [...] | | | | | | n Parke | | | | | + +--------+ [...] +--------+ +---------+--------+ | MEDICARE | MEDICA | [id number] | 01/21/20 | [phone] | | Medica | | | RE | | 01-Pre | 5 | | re | | | PART A | | sent | | | | | | AND B | | | | | | + +--------+ +--------+ +---------+--------+ | MEDICARE | MEDICA | [id number] | 01/21/20 | [phone] | | Medica | | | RE | | 01-Pre | 5 | | re | | | PART A | | sent | | | | | | AND B | | | | | | + +--------+ +--------+ +---------+--------+ | AARP | AARP | [id number] | | [phone] | | Indemn | | | MDCR | | 016-Pr | 0 | | ity | | | SUPPL | | esent | | | | + +--------+ +--------+ +---------+--------+ | AARP | AARP | [id number] | 11/22/19 | [phone] | | Indemn [...] Person | Self | [birth year] | [address] | | Kirk | cristo/Per | | 9 | [phone] | Dr [place] | | | roxanne | | | 8 (Home) | [address] | + +--------+ +--------+ + + | Moe Sanchez | Person | Self | [birth year] | | [address] | | Kirk | al/Fam | | 1960 | [phone] | Dr [place] | | | roxanne | | | 8 (Home) | [address] | + +--------+ +--------+ + + | Moe Sanchez | Dave | Self | [birth year] | | [address] | | Kirk | Republican | | 1960 | [phone] | [address] [place] | | | [place] | | | 3 ([place]) | [address] | | | ity | | | | | + +--------+ +--------+ + + Advance Directives + + + + + | Type | Date Recorded | Patient | Explanation | | | | Agricultural Plow Operator | | + + + + + | Power of | | | | | Filler Blender | | | | + + + [...]
--- OUTSIDE RECORDS SUMMARY | ~2020-06-07 | XMS | Encounter Summary ---
Demographics + + + | Address | [address] | | | [place] [address] | + + + | Home Phone [...] Providers + +------+ + | Care Appeals Referee Name | Role | Phone | + [...] + + | 12/14/ | Telephone | [facility] | Emmanuel Daniel MD | Follow-up, Office | | 2019 | | GASTROENTEROLOGY | [address] [facility] | Visit (wants to | | | | [address] [facility] | [address] [place], [place] | cancel his office | | | | [address] [place], [place] | [address] | appointment today) | | | | [address] | | | | | | [phone] | | | +--------+ + + + [...] encounter Miscellaneous Notes Telephone Encounter - MattKailyn, REFINERY OPERATOR LIGHT ENDS RECOVERY - 12/14/2018 12:00 PM PSTPatient calls in, [...] horrible, he states he has been to [place], [facility] , [place] and [facility], and they are all bad, [...] | | | | | | [place] [address] | | | | | | [phone] | | | | | | | | +--------+ + + + + documented as of this encounter Visit Diagnoses Not on filedocumented in this encounter"
--- OUTSIDE RECORDS SUMMARY | ~2020-06-07 | XMS | Encounter Summary ---
Demographics + + + | Address | [address] | | | [place] [address] | + + + | Home Phone [...] Team Providers + +------+ + | Care Horticulture/Floriculture Teacher Name | Role | Phone | [...] + + | 07/01/ | Hospital | [facility] | Scotty Galdamez, | DDD (degenerative | | 2018 | Encounter | MED CTR XRAY [address] | [employer] G[employer] [address] | disc disease), | | | | [place] | [address] | lumbar; Chronic | | | | [place] [address] | [place] [address] | left-sided low back | | | | [phone] | [phone] | pain with left-sided | | | [...] + + + +---------+ + + | [place]-3 Fatty | CAPS, one capsule by | [...] | | | | | | [place] [address] | | | | | | [phone] | | | | | | | [...]
--- OUTSIDE RECORDS SUMMARY | ~2020-06-07 | XMS | Encounter Summary ---
Demographics + + + | Address | [address] | | | [place] [address] | + + + | Home Phone [...] + +------+ + | Care Customer Support Technician Name | Role | Phone [...] | CARDIOLOGY [address] | MD [address] [place] | | | | | [place], | [place], | | | | | [place] [address] | [place] [id number] | | | | | [phone] | [phone] | | | | | | | [...] | | | | | | [place] [id number] | | | | | | [phone] | | | | | | | | +--------+ + + + + documented as of this encounter Visit Diagnoses Not on filedocumented in this encounter"
--- OUTSIDE RECORDS SUMMARY | ~2020-06-07 | XMS | Encounter Summary ---
Demographics + + + | Address | [address] | | | [place] [address] | + + + | Home Phone [...] + +------+ + | Care Professor Of Astronomy Name | Role | Phone | + +------+ + | Kirk French MD | PCP | | + +------+ + Encounter Details +--------+ + + + + | Date | Type | Department | Care Team | Description | +--------+ + + + + | 01/05/ | [facility] | [facility] | Emmanuel Daniel MD | Functional diarrhea | | 2019 | Encounter | MED CTR MP INTRA OP | [address], [place] | (Primary Dx); Weight | | | | [address] | [address] [place], [place] | loss | | | | [place], [place] | [address] | | | | | [address] | | | | | | [phone] | | | +--------+ + + + [...] for a few hours. Date Last Reviewed: 09/22/201619992218-8706 [employer]. [address] [place] [address]. All righ ts reserved. This information is [...] vomiting, or vomiting blood Date Last Reviewed: 05/22/201619998837-[address] [employer] [place] [address], [place] [address]. All righ ts reserved. This information is [...] You can't be awakened Date Last Reviewed: 09/08/201619990091-4137 [employer]. [address] [place] [address]. All righ ts reserved. This information is [...] + + + +---------+ + + | [place]-3 Fatty | CAPS, one capsule by | [...] of diarrhea since serving in the in [facility]. His last episodes of diarrhea started [...] done through [facility] November s howed mild diverticulosis without evidence [...] Endoscopy Patient: Moe Sanchez : 1960 Acct: [id number] Exam Date: December Doctor: Emmanuel Daniel MD [...] If unable to reach your physician, call [facility] Emergency Department at [address] Your [...] Exams Patient: Moe Sanchez : 1960 Acct: [id number] Exam Date: December Doctor: Emmanuel Daniel MD [...] If unable to reach your physician, call [facility] Emergency Department at [address] Your [...] | | | | | | [address] [place], | | | | | | [place] [address] | | | | | | [phone] | | | | | | | [...] + + | Performed at: 01 - [facility] [address], | REFERENCE LAB | | [place], [place] [id number] Photograph Printer: Miguel Galarza MD, Phone: | [facility]INA | | [phone] | | + + + + + + + + | Performing | Address | City/State/Zipcode | Phone Number | | Organization | | | | + + + + + | [facility] | [address] | [place], [place] | [phone] | | [facility] | [place] | [address] | | + + + + + [...] | REFERENCE LAB | | [place] [id number] Photograph Printer: Miguel Galarza MD, Phone: | [facility] | | [phone] | | + + + + + + + + | Performing | Address | City/State/Zipcode | Phone Number | | Organization | | | | + + + + + | REFERENCE LAB | [address] | [place], [place] | [phone] | | [facility] | [place] | [address] | | + + + + + [...] ST. | [address] | [place] | [phone] | | [facility] | | [address] | | | - LABORATORY | | [address] | [place] | [phone] | | [facility] | | [address] | | | - LABORATORY | | [...] [address] | [place] | [phone] | | [facility] | | [address] | | | - LABORATORY | | [...] + | [facility] | [address] | [place] | [phone] | | [facility] | | [address] | | | - LABORATORY | | [...] ST. | [address] | [place] | [phone] | | [facility] | | [address] | | | - LABORATORY | | [...] [address] | [place] | [phone] | | [facility] | | [address] | | | - LABORATORY | | | | + + + + + EGD (01/05/2019 8:36 AM PST) + + | Specimen | + + | | + + + + -+ | Narrative | Performed At | + + -+ | | [facility] | | GastroenterologyPatient Name: Moe Venegas Date: | PROVATION | | 01/05/2019 8:36 AMMRN: [id number] #: [id number] of : | | | 9Admit Type: AmbulatoryAge: 58Room: [facility] 01Gender: MaleNote | | | Status: FinalizedAttending MD: Emmanuel Daniel , MDProcedure: | | | Upper GI endoscopyIndications: Diarrhea, Weight | | | lossProviders: Emmanuel Daniel MD, Heidi Mixon [place], | | | RN, Kim Hicks, System Configuration Specialist, | | | Jarett Barakat MD [...] physician, the nurse, the anesthesiologist and the senior qc technician | | | in the endoscopy [...] | | Imaging was performed using the [employer]elligent Chromo | | | Endoscopy (FICE) [...] 8:43:57 AMScope Out: 8:49:50 AM [facility]. | | | [facility], [address] [place] [address] | | | [phone] | | |Recommendation: | | | - [...] 8:49:50 AM | | | [facility]. [facility], [address] [place] [address] | | | [address] | | + + -+ + +---------+ [...] | PROVATION | | 01/05/2019 8:36 AMMRN: [id number] #: [id number] of : | | | 9Admit Type: AmbulatoryAge: 58Room: [facility] 01Gender: MaleNote | | | Status: FinalizedAttending MD: Emmanuel Daniel , [facility]: | | | ColonoscopyIndications: Clinically significant diarrhea of | | | unexplained origin, Weight lossProviders: | | | Emmanuel Daniel MD, Heidi An RN, Kim | | | Fiorella Hicks, System Configuration Specialist, Jarett Alejo | | | MD [...] | | | the anesthesiologist and the senior qc technician in the endoscopy suite. | | [...] | | 9:06:28 AM [facility], [address] [facility], | | | [place] [address] | | | - Discharge patient to [...] | | [facility], [address] [facility], [place] | | | [address] | | + + -+ + +---------+ [...] | (atherosclerotic heart disease of [place] coronary artery without | | | angina [...] chronic or | | | microscopic colitis. [facility]:C3NR GROSS DESCRIPTION: A. The | | | specimen, labeled "[place], duodenal biopsy" is received in formalin | | | and consists of seven 0.1-0.5 cm lin fragments. Entirely submitted in | | | (A1). B. The specimen, labeled "[place], right colon" is received | | | in formalin and consists of six 0.2-0.3 cm lin fragments. Entirely | | | submitted in (B1). C. The specimen, labeled "[place], left colon" | | | is received in formalin and consists of six 0.2-0.3 cm lin-pink | | | fragments. Entirely submitted in (C1). am:AMB:rds PERFORMING | | | LABORATORY: The technical component was performed by [facility] | | | [id number] [address] (Rivet Machine Operator: | | | Kailey Stafford MD; CLIA# [id number]). Professional interpretation was | | | performed by [facility], [facility], [facility] | | | [place] [address] (Rivet Machine Operator: [place] | Shanique Dao M.D.; CLIA#: [id number]). Diagnostician: Ishaan Fitzpatrick | | Shanique Dao [...] Wheezing, | | | Starting [facility] 01/05/19 at 0924, | | | [...]
--- OUTSIDE RECORDS SUMMARY | ~2020-06-07 | XMS | Encounter Summary ---
Demographics + + + | Address | [address] | | | [place] [address] | + + + | Home Phone [...] Providers + +------+ + | Care Head Esthetician Name | Role | Phone | + [...] | | | | [place] | [phone] | | | | | [address] | | | | | | [phone] | | | +--------+ + + + [...] + + + +---------+ + + | [place]-3 Fatty | CAPS, one capsule by | [...] | | | | | | [place] [address] | | | | | | [phone] | | | | | | | [...]
--- OUTSIDE RECORDS SUMMARY | ~2020-06-07 | XMS | Encounter Summary ---
Demographics + + + | Address | [address] | | | [place] [address] | + + + | Home Phone [...] Providers + +------+ + | Care Supervisor Fertilizer Name | Role | Phone | + [...] + | 09/01/ | Telephone | [facility] | [place], | Appointment | | 2016 | | CARDIOLOGY [address] | [place] [address] | (Reschedule) | | | | [place], | [place], | | | | | [place] [address] | [place] [address] | | | | | [phone] | [phone] | | | | | | | [...] | | | | | | [place] [address] | | | | | | [phone] | | | | | | | | +--------+ + + + + documented as of this encounter Visit Diagnoses Not on filedocumented in this encounter"
--- OUTSIDE RECORDS SUMMARY | ~2020-06-07 | XMS | Encounter Summary ---
Demographics + + + | Address | [address] | | | [place] [address] | + + + | Home Phone [...] Providers + +------+ + | Care Quality Internship Name | Role | Phone | [...] [place], | | | | | | [place] [address] | | | | | | [phone] | | | +--------+ + + + [...] | | | | | | [place] [address] | | | | | | [phone] | | | | | | | | +--------+ + + + + documented as of this encounter Visit Diagnoses Not on filedocumented in this encounter"
--- OUTSIDE RECORDS SUMMARY | ~2020-06-07 | XMS | Encounter Summary ---
Demographics + + + | Address | [address] | | | [place] [address] | + + + | Home Phone [...] [address] | | | | | [place], | [place], | | | | | [place] [address] | [place] [address] | | | | | [phone] | [phone] | | | | | | | [...] | | | | | | [place] [address] | | | | | | [phone] | | | | | | | [...] + | [facility] | [address] [place] [address] | [place] | | | [facility] | | [address] | | | - LABORATORY [...] | | | LAB | | | Croatian, | | | | | | External [...] + | [facility] | [address] [place] | [place], [place] | | | [facility] | | [address], [facility] | | | - [...]
--- OUTSIDE RECORDS SUMMARY | ~2020-06-07 | XMS | Encounter Summary ---
Demographics + + + | Address | [address] | | | [place] [address] | + + + | Home Phone [...] Providers + +------+ + | Care Culinary Worker Name | Role | Phone | [...] + + | 08/23/ | Telephone | [facility] | Anshumarianatesha Rashadotto, | Other (edema is | | 2015 | | CARDIOLOGY [address] | [address] | blood clots) | | | | [place], | [place], | | | | | [place] [address] | [place] [address] | | | | | [phone] | [phone] | | | | | | | [...] | | | | | | [place] [address] | | | | | | [phone] | | | | | | | | +--------+ + + + + documented as of this encounter Visit Diagnoses Not on filedocumented in this encounter"
--- OUTSIDE RECORDS SUMMARY | ~2020-06-07 | XMS | Encounter Summary ---
Demographics + + + | Address | [address] | | | [place] [address] | + + + | Home Phone [...] Providers + +------+ + | Care Hand Shoes Sewer Name | Role | Phone | [...] [address] | | | | | [place], | [place], | | | | | [place] [address] | [place] [address] | | | | | [phone] | [phone] | | | | | | | [...] | | | | | | [place] [address] | | | | | | [phone] | | | | | | | | +--------+ + + + + documented as of this encounter Visit Diagnoses Not on filedocumented in this encounter"
--- OUTSIDE RECORDS SUMMARY | ~2020-06-07 | XMS | Encounter Summary ---
Demographics + + + | Address | [address] | | | [place] [address] | + + + | Home Phone [...] Providers + +------+ + | Care Dragline Engineer Name | Role | Phone | + +------+ + PCP | Unavailable | + +------+ + Encounter Details +--------+ + + + + | Date | Type | Department | Care Team | Description | +--------+ + + + + | [facility]12[facility] | | | | 1994 | Encounter | MED CTR GENERIC OP | | | | | | CONV DEPT [address] | | | | | | [place], | | | | | | [place] [address] | | | | | | [phone] | | | +--------+ + + + [...] | | | | | | [place] [address] | | | | | | [phone] | | | | | | | | +--------+ + + + + documented as of this encounter Visit Diagnoses Not on filedocumented in this encounter"
--- OUTSIDE RECORDS SUMMARY | ~2020-06-07 | XMS | Encounter Summary ---
Demographics + + + | Address | [address] | | | [place] [address] | + + + | Home Phone [...] + +------+ + | Care Fabric Worker Supervisor Name | Role | Phone | + +------+ + PCP | Unavailable | + +------+ + Encounter Details +--------+ + + + + | Date | Type | Department | Care Team | Description | +--------+ + + + + | 08/26/ | Hospital | [facility] | | | | 2009 | Encounter | MED CTR LABORATORY | | | | | | [address] | | | | | | [place] | | | | | | [address] | | | | | | [phone] | | | +--------+ + + + [...] | | | | | | [place] [address] | | | | | | [phone] | | | | | | | | +--------+ + + + + documented as of this encounter Visit Diagnoses Not on filedocumented in this encounter"
--- OUTSIDE RECORDS SUMMARY | ~2020-06-07 | XMS | Encounter Summary ---
Demographics + + + | Address | [address] | | | [place] [address] | + + + | Home Phone [...] Team Providers + +------+ + | Care Bunk House Worker Name | Role | Phone | [...] + + | 10/01/ | Office | [facility] | Mary Bradshaw | Injury of left foot, | | 2013 | Visit | CARE [address] | Guy Larkin MD | initial encounter | | | | [place] | [address] | (Primary Dx) | | | | [address] | [place] | | | | | [phone] | [address] | | | | | | | [...] half hours. 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 I provided patient with Dr. Bradley's card so he may contact us for results. Patient's best phone number: [phone] Renetta Lockwood RN [place] [...] | | | | | | [place] [address] | | | | | | [phone] | | | | | | | [...] + | MISCELLANEOUS LAB | | | [phone] | + +---------+ + + | MISCELANIOUS LAB | | | [phone] | + +---------+ + + documented in this encounter Visit Diagnoses + + | Diagnosis | + + | Injury of left foot, initial encounter - Primary | + + documented in this encounter
--- OUTSIDE RECORDS SUMMARY | ~2020-06-07 | XMS | Encounter Summary ---
Demographics + + + | Address | [address] | | | [place] [address] | + + + | Home Phone [...] Providers + +------+ + | Care Phone Representative Name | Role | Phone | [...] [address] | | | | | | [place], [place] | (Fax) | | | | | [address] | | | | | | [phone] | | | +--------+ + + + [...] | | | | | | [place] [address] | | | | | | [phone] | | | | | | | | +--------+ + + + + documented as of this encounter Visit Diagnoses Not on filedocumented in this encounter"
--- OUTSIDE RECORDS SUMMARY | ~2020-06-07 | XMS | Encounter Summary ---
Demographics + + + | Address | [address] | | | [place] [address] | + + + | Home Phone [...] + + | 05/13/ | Hospital | [facility] | | | | 2007 | Encounter | MED CTR EMERGENCY | | | | | | [address] | | | | | | [place] | | | | | | [address] | | | | | | [phone] | | | +--------+ + + + [...] | | | | | | [place] [address] | | | | | | [phone] | | | | | | | | +--------+ + + + + documented as of this encounter Visit Diagnoses Not on filedocumented in this encounter"
--- OUTSIDE RECORDS SUMMARY | ~2020-06-07 | XMS | Encounter Summary ---
Demographics + + + | Address | [address] | | | [place] [address] | + + + | Home Phone [...] + +------+ + | Care Director Of Workforce Development Name | Role | Phone | [...] + + | 05/15/ | Office | [facility] | Matthew Uriarte | Kidney stones | | 2019 | Visit | [address] | MD Tawanna [address] | (Primary Dx) | | | | [place] | [address] [place] [facility] [place] | | | | | [address] | [address] | | | | | [phone] | | | +--------+---------+ + + + [...] CV LHC; Surgeon: Daljit Singletary MD; Location: [facility] CV LAB CARDIAC CATHERIZATION N/A 01/25/2019 Procedure: CV Cor Angio; Surgeon: Daljit Singletary MD; Location: [facility] CV LAB COLONOSCOPY N/A 12/24/2017 Procedure: COLONOSCOPY; Surgeon: Emmanuel Daniel MD; Location: [facility] MEDICAL PROCEDURE UNIT COLONOSCOPY N/A 01/05/2019 Procedure: COLONOSCOPY; Surgeon: Emmanuel Daniel MD; Location: [facility] MEDICAL PROCEDURE UNIT EGD 12/24/2017 HARDWARE [...] Procedure: EGD; Surgeon: Emmanuel Daniel MD; Location: [facility] MEDICAL PROCEDURE UNIT UPPER GASTROINTESTINAL ENDOSCOPY N/A 01/05/2019 Procedure: EGD; Surgeon: Emmanuel Daniel MD; Location: [facility] MEDICAL PROCEDURE UNIT URETEROSCOPY Left 04/13/2019 Procedure: Cystoscopy, Left ureteroscopy with laser lithotripsy, Left ureteral stent place ment; Surgeon: Matthew Uriarte MD; Location: [facility] MAIN OR VASECTOMY Family History: Family [...] 911, Disp: 100 ta blet, Rfl: 3 [place]-3 Fatty Acids (SALMON OIL-1000 PO), CAPS, one capsule by mouth daily twice daily , Disp: , Rfl: ondansetron (ZOFRAN ODT) 4 mg disintegrating tablet, Take 4 mg by mouth every 8 hours as needed for Nausea., Disp: , Rfl: ONE TOUCH [facility], Check glucose as needed for hypoglycemia, Disp: [...] pH, Urine 8.0 5.0 - 8.0 Specific [place] 1.008 1.001 - 1.030 Protein, Urine [...] have not thoroughly proofread this note, and actuarial science professor errors are very likely to occur. [...] | | | | | | [place] [address] | | | | | | [phone] | | | | | | | [...]
--- OUTSIDE RECORDS SUMMARY | ~2020-06-07 | XMS | Encounter Summary ---
Demographics + + + | Address | [address] | | | [place] [address] | + + + | Home Phone [...] Team Providers + +------+ + | Care Dishwashing Machine Operator Name | Role | Phone [...] + + | 05/02/ | Telephone | [facility] [place] | [place], | Results | | 2020 | | CARDIOLOGY [address] | [address] | | | | | [place], | [place], | | | | | [place] [address] | [place] [address] | | | | | [phone] | [phone] | | | | | | | [...] RN on 05/03/20 at 11:31 AM elephone [facility] - Janeen Vega ARNP - 05/02/2020 4:58 [...] | | | | | | [place] [address] | | | | | | [phone] | | | | | | | | +--------+ + + + + documented as of this encounter Visit Diagnoses Not on filedocumented in this encounter"
--- OUTSIDE RECORDS SUMMARY | ~2020-06-07 | XMS | Encounter Summary ---
Demographics + + + | Address | [address] | | | [place] [address] | + + + | Home Phone [...] Providers + +------+ + | Care General Forecaster Name | Role | Phone | [address] | | | | | | [place], [place] | (Fax) | | | | | [address] | | | | | | [phone] | | | +--------+ + + + [...] | | | | | | [place] [address] | | | | | | [phone] | | | | | | | | +--------+ + + + + documented as of this encounter Visit Diagnoses Not on filedocumented in this encounter"
--- OUTSIDE RECORDS SUMMARY | 2020-06-07 21:32 | XMS ---
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 Patient Financial Services Coordinator Events 1 event(s) in the past 18 months Most recent security events: Elopement at [facility] 04/15/2020 20:03 - Other Details: PATIENT LWBS. CRITERIA MET - Group Notification - 6 ED Visits in 6 Months - [facility] - Has Care Guidelines - PDMP - [facility] - 2 Visits in 30 Days CARE PROVIDERS TOO MORALES Specialist 09/05/2019-Current MD Cr PHONE: Unknown SARAH PEOPLES Internal Medicine Current PHONE: [phone] Joseline has no Care Guidelines for this patient. Care History Medical/Surgical 01/02/2020 [facility] - W CONTACTED DR COSTA OFFICE- SURVEILLANCE SENSOR OPERATOR- [phone] SPOKE WITH GINNY CHILDRESS- PATIENT HAS A COLONOSCOPY SCHEDULED 01/22/2020 ALONG WITH PILL CAMERA PROCEDURE AFTER. - W PROVIDED DR COSTA WITH DR BUTT CONTACT INFORMATION-THEY HAVE ACCESS TO [facility] RECORDS AND WERE ABLE TO PULL UP PATIENT PAST VISIT WITH DR BUTT. - GOING FORWARD DR COSTA WOULD LIKE ED RECORDS SENT TO THE OFFICE [phone]. THEY WILL WORK WITH DR BUTT AND COMMUNICATE ON PATIENT CHRONIC CONDITION. 01/01/2020 [facility] Care Recommendation: - USE EXTREME CAUTION IN GIVING NARCOTICS. - Avoid Discharge Narcotic prescriptions if at all possible. Physician discretion. 12/06/2019 [facility] -SPOKE WITH PATIENT REGARDING CHRONIC CARE AND ED USE -PATIENT HAS GASTROENTEROLOGY APPT WITH DR COSTA ([facility]) 12/18/19 0830 - STATES HE HAS A RIDE -PATIENT HAS CARDIOLOGY APPT WITH DR TURNER ([facility]) 01/01/20 0730 -CONACT INFO GIVEN FOR CASE MANAGEMENT FOR HELP WITH RESOURCES EBibiana VISIT COUNT (12 MO.) [facility] TOTAL 24 NOTE: Visits indicate total known visits. ED/UCC VISIT TRACKING (12 MO.) 06/07/2020 21:29 [facility] [place] TYPE: Emergency COMPLAINT: - LEFT LEG PAIN 06/03/2020 13:29 [facility] [place] TYPE: Emergency COMPLAINT: - LEG PAIN, INJ DIAGNOSES: - Procedure and treatment not carried out due to patient leavin 05/03/2020 13:19 [facility] [place] TYPE: Emergency DIAGNOSES: - Unspecified injury of right shoulder and upper arm, initial e - Unspecified injury of right hip, initial encounter - fall, shoulder pain,back pain 04/28/2020 15:37 [facility] [place] TYPE: Emergency DIAGNOSES: - Epigastric pain - VOMITING DIARRHEA ABD PAIN - Nausea with vomiting, unspecified 04/15/2020 23:22 [facility] [place] TYPE: Emergency COMPLAINT: - ANKLE INJURY DIAGNOSES: - Allergy status to other drugs, medicaments and biological sub - Pain in left ankle and joints of left foot - Pure hypercholesterolemia, unspecified - Other building construction contractor (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 - Fall on same [...] status to narcotic agent status - Other building construction contractor (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 - Essential (primary) hypertension 01/20/2020 12:56 [facility] [place] TYPE: Emergency COMPLAINT: - VOMITING, DIARRHEA DIAGNOSES: - Other building construction contractor (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 - Nausea - Allergy status to penicillin - Diarrhea, unspecified - Pure hypercholesterolemia, unspecified - Unspecified abdominal pain - Essential (primary) hypertension 01/05/2020 22:34 [facility] [place] TYPE: Emergency COMPLAINT: - BLEEDING/ABDOMINAL PAIN DIAGNOSES: - Other building construction contractor (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 - Allergy status to narcotic agent status - Allergy status to penicillin - Allergy status to other antibiotic agents status - Noninfective gastroenteritis and colitis, unspecified - Essential (primary) hypertension - waiter/waitress cocktail lounge (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 - Lower abdominal pain, unspecified 12/31/2019 10:38 [facility] [place] TYPE: Emergency COMPLAINT: - ABD PAIN, BLOOD IN STOOL DIAGNOSES: - Allergy status to other antibiotic agents status - Unspecified abdominal pain - Allergy status to narcotic agent status - Right lower quadrant pain - Other [facility] (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 - Other fecal abnormalities - waiter/waitress cocktail lounge (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 - Allergy status to penicillin - Other chronic pain - Essential (primary) hypertension 12/06/2019 13:52 [facility] [place] TYPE: Emergency COMPLAINT: - ABDOMINAL PAIN DIAGNOSES: - Allergy status to other antibiotic agents status - Allergy status to penicillin - waiter/waitress cocktail lounge (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 - Unspecified abdominal [...] dependence - Essential (primary) hypertension - Other building construction contractor (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 - senior living (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 - Allergy status to other antibiotic agents status - Allergy status to narcotic agent status 11/01/2019 12:00 [facility] [place] TYPE: Emergency COMPLAINT: - ABD PAIN DIAGNOSES: - waiter/waitress cocktail lounge (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 - Diarrhea, unspecified [...] status to narcotic agent status - Other building construction contractor (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 - senior living (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 - Cervicalgia - Allergy status to other antibiotic agents status - Personal history of nicotine dependence - Essential (primary) hypertension 10/04/2019 12:04 [facility] [place] TYPE: Emergency COMPLAINT: - POSSIBLE DEHYDRATION,DIARHEA DIAGNOSES: - Other building construction contractor (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 - Allergy status to other drugs, medicaments and biological sub - Diarrhea, unspecified - Allergy status to penicillin - waiter/waitress cocktail lounge (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 - Allergy status to narcotic agent status - Noninfective gastroenteritis and colitis, unspecified - Essential (primary) hypertension - Allergy status to other antibiotic agents status 09/19/2019 12:02 [facility] [place] TYPE: Emergency COMPLAINT: - ABD PAIN, VOMITING DIAGNOSES: - Other [facility] (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 - Allergy status to penicillin - senior living (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 - Pure hypercholesterolemia, [...] sub - Allergy status to penicillin - waiter/waitress cocktail lounge (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 - Strain of unspecified muscle, fascia and tendon at shoulder a - Other building construction contractor (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 - Allergy status to [...] NAUSOUS DIAGNOSES: - Pure hypercholesterolemia, unspecified - waiter/waitress cocktail lounge (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 - Other [facility] (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 - Allergy status to penicillin - Personal history of nicotine dependence - Essential (primary) hypertension - Allergy status to narcotic agent status - Dizziness and giddiness - Irritable bowel syndrome without diarrhea - Allergy status to other antibiotic agents status 07/27/2019 13:25 [facility] [place] TYPE: Emergency DIAGNOSES: - Other muscle spasm - Pain in right shoulder - right shoulder pain - Strain of other muscles, fascia and tendons at shoulder and u Plus 4 More Visits INPATIENT VISIT TRACKING (12 MO.) 06/13/2019 07:05 [facility] [place] TYPE: Medical Surgical DIAGNOSES: - Pain in right shoulder - Primary osteoarthritis, right shoulder - Other synovitis and tenosynovitis, right shoulder [email or web address]
[2020-06-07] MEDS ORDERED: VICODIN HP 10-1 EAC1 PO (21:54)
== END 2020-06-07 22:48 | disposition home or self-care (01) ==
LOC: ED 21:28
DX: S82.832D Other fracture of upper and lower end of left fibula, subsequent encounter for closed fracture with routine healing (principal); I10 Essential (primary) hypertension; Z88.0 Allergy status to penicillin; Z88.5 Allergy status to narcotic agent; Z88.8 Allergy status to other drugs, medicaments and biological substances; Z88.1 Allergy status to other antibiotic agents; Z79.899 Other long term (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; Z79.82 Long term (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
CPT/HCPCS: 73610; 99283-25

== ENCOUNTER 2020-06-15 21:47 | Emergency (ER) | payer MEDICARE ==
[~2020-06-15] VITALS: Ht 193 cm; Wt 117.9 kg
--- OUTSIDE RECORDS SUMMARY | ~2020-06-15 | XMS | Encounter Summary ---
Demographics + + + | Address | [address] [place] [address] [address] | | | [place] [address] | + + + | Home Phone | | + + + | Preferred Language | Unknown | + + + | Marital Status | | + + + | Presybeterian Affiliation | Unknown | + + + | Race | White | + + + | Ethnic Group | Not or | + + + Author + + + | Author | [facility] | + + + | Organization | [facility] | + + + | Address | Unknown | + + + | Phone | Unavailable | + + + Support + + + + + | Name | Relationship | Address | Phone | + + + + + | Rachel Valencia | [address] | [place] | | | | | [address] | | + + + + + Care Team Providers + +------+ + | Care Professor Of Special Education Name | Role | Phone | + +------+ + | Darion Holden DO | PCP | | + +------+ + Reason for Referral Consultation (Routine) + +--------+ + + + + | Status | Reason | Specialty | Diagnoses / | Referred By | Referred To | | | | | Procedures | Contact | Contact | + +--------+ + + + + | Authorized | | Non [facility] | Diagnoses | [place], | Non-[facility] | | | | Department | Chronic | Bridgette Escobar MD | Epic Dept | | | | | diarrhea | [address] | | | | | | [address] | [address] | | | | | | l weight | [place], [place] | | | | | | loss | [address] | | | | | | Procedures | Phone: | | | | | | CONSULT TO | [phone] | | | | | | NON - [facility] | Fax: | | | | | | PROVIDER | [phone] | | | | | | CONSULT TO | | | | | | | NON - [facility] | | | | | | | PROVIDER | | | + +--------+ + + + + Reason for Visit +--------+ + | Reason | Comments | +--------+ + | Other | wants to change location of referral | +--------+ + Encounter Details +--------+ + + + + | Date | Type | Department | Care Team | Description | +--------+ + + + + | 11/17/ | Telephone | [facility] | Bridgette Rios Shawn, | Other (wants to | | 2019 | | Center at [facility] [address] | MD [address] | change location of | | | | [address] | [place], [place] | referral ) | | | | for Health and | [address] | | | | | [place] [address] | [phone] | | | | | [place], [place] | | | | | | [address] | | | | | | [phone] | | | +--------+ + + + + Social History + +-------+ +--------+ + | Tobacco Use | Types | Packs/Day | Years | Date | | | | | Used | | + +-------+ +--------+ + | Current Some Day | | | 39 | Quit: 02/03/2007 | | Smoker | | | | | + +-------+ +--------+ + + +---+---+---+ | Smokeless Tobacco: | | | | | Never Used | | | | + +---+---+---+ + + | Comments: Smoked cigars occasionally(1 a year) | + + + + +---------+ + | Alcohol Use | Drinks/Week | oz/Week | Comments | + + +---------+ + | No | | | | + + +---------+ + + + + | Sex Assigned at [...] as of this encounter Plan of Treatment Not on filedocumented as of this encounter Visit Diagnoses + + | Diagnosis | + + | Chronic diarrhea - Primary Diarrhea | + + | Unintentional weight loss Loss of weight | + + documented in this encounter"
--- OUTSIDE RECORDS SUMMARY | ~2020-06-15 | XMS | Encounter Summary ---
Demographics + + + | Address | [address] | | | [place] [address] | + + + | Home Phone | | + + + | Preferred Language | Unknown | + + + | Marital Status | | + + + | Oriental Orthodox Affiliation | 1013 | + + + | Race | Unknown | + + + | Ethnic Group | Unknown | + + + Author + + + | Author | [facility] | | | and [place] | + + + | Organization | [facility] | | | and [place] | + + + | Address | Unknown | + + + | Phone | Unavailable | + + + Support + + +---------+ + | Name | Relationship | Address | Phone | + + +---------+ + | Nadinevarsha Sweeneygalenvarsha | ECON | Unknown | | + + +---------+ + Care Team Providers + +------+ + | Care Framing Specialist Name | Role | Phone | + [...] Description | +--------+--------+ + + + | 09/20/ | Refill | [facility] | Michael Amanda, | Medication Refill | | 2013 | | [facility] [place] | DO [address] | | | | | [address] | [place] | | | | | [place], [place] | [address] | | | | | [address] | | | | | | [phone] | | | +--------+--------+ + + + [...] [place], | | | | | | [place] [address] | | | | | | [phone] | | | | | | | | +--------+ + + + + documented as of this encounter Visit Diagnoses Not on filedocumented in this encounter"
--- OUTSIDE RECORDS SUMMARY | ~2020-06-15 | XMS | Encounter Summary ---
Demographics + + + | Address | [address] | | | [place] [address] | + + + | Home Phone | | + + + | Preferred Language | Unknown | + + + | Marital Status | | + + + | Christian Affiliation | [id number] | + + + [...] Team Providers + +------+ + | Care Web Retailer Name | Role | Phone | + +------+ + | Kirk French MD | PCP | | + +------+ + Encounter Details +--------+---------+ + + + | Date | Type | Department | Care Team | Description | +--------+---------+ + + + | 01/25/ | Surgery | [facility] | Daljit Singletary, | CV [facility] | | 2019 | | MED CTR CV IN[facility] OP | [address] | | | | | [address] | [place], | | | | | [place] | [place] [address] | | | | | [address] | [phone] | | | | | [phone] | | | +--------+---------+ + + + [...] + + +---------+ + | Yes | 7 Shots of liquor | 7.0 [...] + + + | Blood Pressure | 103/68 | 01/25/2019 10:30 AM | | | | | PST | | + + + + + | Pulse | 70 | 01/25/2019 10:30 AM | | | | | PST | | + + + + + | Temperature | 36.7 C (98 F) | 01/25/2019 8:51 AM | | | | | PST | | + + + + + | Respiratory Rate | 20 | 01/25/2019 10:30 AM | | | | | PST | | + + + + + | Oxygen Saturation | 94% | 01/25/2019 10:30 AM | | | | | PST | | + + + + + | Inhaled Oxygen | - | - | | | Concentration | | | | + + + + + | Weight | 109.7 kg (241 lb | 01/25/2019 7:44 AM | | | | 13.5 oz) | PST | | + + + + + | Height | 193 cm (6' 4") | 01/25/2019 7:44 AM | | | | | PST | | + + + + + | Body Mass Index | 29.44 | 01/25/2019 7:44 AM | | | | | PST [...] as of this encounter Discharge Instructions Instructions Dayanna Torres RN - 01/25/2019 Having Cardiac Catheterization You may have had chest pain (angina), dizziness, or other symptoms of heart trouble. To hel p diagnose your problem, your healthcare providermay advise a cardiac catheterization. Thi s is a procedure that looks for a blockage or narrow area in the arteries around the heart. These can cause chest pain or a heart attack if not treated. This common procedure may also be used to treat a heart problem. It may be done as a planne d procedure if you have had chest pain in the past. Or it may be done right away to treat a suspected heart attack. The catheter may be placed in the arm or the groin. Before the procedure Tell your healthcare team what medicines you take and about any allergies you have. Don t eat or drink anything after midnight the night before the procedure, or as instr ucted by your healthcare team. During the procedure Hair may be trimmed where the catheter will be inserted. You may be given medicine to relax before the procedure. You will receive a local anesthetic to prevent pain at the insertion site. A healthcare provider inserts a tube called a sheath into a blood vessel in your groin o r arm. Through the sheath, a long, thin tube called a catheter is placed inside the artery. The catheter is then guided toward your heart. To do different tests or check other parts of the heart, the healthcare provider inserts a new catheter or moves the catheter or X-ray machine. For some tests, a contrast dye is in jected through the catheter. After the procedure Your healthcare providers will tell you how long to lie down and keep the insertion site still. If the insertion site was in your groin, you may need to lie down with your leg still fo r 2 or more hours. If a suture or closure device such as a collagen plugis used on the catawba triny site to close the site, you may be able to move sooner. This depends on any bleeding ely t occurs. A nurse will check the insertion site and your blood pressure. You may be asked to drink fluid to help flush the contrast liquid out of your system. Have someone drive you home from the hospital. It s normal to find a small bruise or lump at the insertion site. This should go away within a few weeks. When to call your healthcare provider Call your healthcare providerright away if you have any of the following: Chest pain (angina) Pain, swelling, redness, bleeding, or fluid leaking at the insertion site Severe pain, coldness, or a bluish color in the leg or arm that held the catheter Blood in your urine, black or sticky stools, or any other kind of bleeding Fever of 100.4F(38.0C) or higher, or as advised by your healthcare provider Date Last Reviewed: 09/22/201619992766-8788 [employer]. [address] [place] [address]. All righ ts reserved. This information is [...] + + + +---------+ + + | [place]-3 Fatty | CAPS, one capsule by | [...] 5% | | | | 17 | 0 | | ointment | | | | [...] 4 times daily | | | | 9 | | ne (LOMOTIL) | as needed [...] | ondansetron | Take 4 mg by mouth. | | 0 | 01/17/20 | | | (ZOFRAN) 4 mg tablet | | | | 19 | 0 | + + + +---------+ + + | pravastatin | take 1 tablet by | 90 | 3 | 01/11/20 | | | (PRAVACHOL) 40 MG | mouth NIGHTLY | tablet | | 19 | 9 | | tablet | | [...] +---------+ + + | sertraline | Take 200 mg by | | 0 | 01/17/20 | | | (ZOLOFT) 100 mg | mouth. | | | 19 | 0 | | tablet | | | | [...] + + documented as of this encounter H&P Notes Daljit Singletary MD - 01/25/2019 8:18 AM PSTMr. Sanchez's chart was reviewed in detail, a nd no changes have occurred since the recent note. Also, he was examined by me today and th ere are no changes in the heart and lung exam. Mr. Sanchez is still appropriate candidate fo r left heart catheterization and we will proceed with that today. An explanation of the pro cedure, including the risks, benifits and alternatives to the procedure were discussed with the patient and consent has been obtained. Janeen Cruz ARNP - 01/11/2019 12:45 PM PST PATIENT NAME: Moe Sanchez : 1960: AGE: 58 y.o. PRIMARY CARE: Kirk French MD OUTPATIENT FOLLOW UP VISIT Date of Service: 01/11/2019 HISTORY OF PRESENT ILLNESS: Moe Sanchez is a 58 y.o. male with a history of non-critical coronary artery d isease involving kenaitze coronary artery of kenaitze heart without angina pectoris, essential h ypertension, symptomatic bradycardia status post Medtronic dual-chamber permanent pacemaker implantation 06/14/09, frequent premature ventricular contractions status post ablation dominique gan 2012, and bipolar disorder with anxiety. He is being seen today for follow up symptomatic PVC's status post ablation. He was last seen 08/24/2018 at which time, his current medical regimen was effective; josse gibbons present plan and medications.The plan will be to increase metoprolol if patient continue s having symptoms with these atrial tachycardia, at the same time decrease clonidine to prev ent having any hypotension. We won't arrange medications at this time because patient's sym ptoms have improved and almost subsided. He would follow up in 1 year, per office visit and device interrogation or sooner with concerns. Since that time, he saw his PCP on 12/22/2018 for a follow up of an ER visit for diarrhea. Haleigh rodarte had been referred to gastroenterology. He was seen on 01/02/2019 for a visit to the emerge ncy room regarding chest pain. He was advised to contact cardiology. His troponins were ne gative. He has had a poor energy level. He has not been very active. He reports with his stomach pa in he has not done much. He has been having cramps. He has lost all her weight since he sta rted having gastrointestinal issues. He enjoys shot guns, go to the mountain, play with his dogs, callejas and fish in his spare time. He has had chest discomfort that could happen at any time. He reports that his stress level has been elevated in the has caused a lot more of hi s chest pain. He has not noticed shortness of breath. He has occasional lightheadedness whe n standing quickly, which is unchanged and not bothersome to him. He has noticed that his pa lpitations have improved. He has not had leg swelling. He sleeps on 1 pillow at night with out any shortness of breath. He sleeps with CPAP but not nightly. He reports his stomach and back her and the pain is about a 5/10. He reports he can only eat one meal a day and he is on Protein drinks. He reports he had chest pain coming over for his appointment. He reports he try the nitro and it helps some times and does not. After reviewing his medication list is noticed that the patient did not be Any more flecain aliya since August. He hasn't been taking it since then so we will continue with out to lisbeth posada at this point. MEDICAL, SURGICAL, AND PERSONAL HISTORY Past Medical, Surgical, Family, and Social History are reviewed in EPIC. CURRENT PROBLEMS Patient Active Problem List Diagnosis Hyperlipidemia, mixed Bipolar disorder Mixed anxiety depressive disorder Smoker Hypertension NONDEPENDENT OPIOID ABUSE IN REMISSION Fibromyalgia LUMBAGO CHRONIC PAIN SYNDROME Thrombocytopenia FATIGUE ABDOMINAL PAIN, UNSPECIFIED SITE NECK PAIN, CHRONIC Syncope Obstructive sleep apnea on CPAP (variable compliance) ORGANIC INSOMNIA UNSPECIFIED CENTRAL SLEEP APNEA CONDS CLASSIFIED ELSEWHERE Ulcerative colitis Sinoatrial node dysfunction with symptomatic bradycardia Pacemaker - Medtronic - ADDR01 Adapta - Implanted 06/14/2009 HEPATITIS B PUD FATTY LIVER DISEASE Multiple substance abuse DEPRESSION Hypoglycemia Symptomatic PVCs Tachycardia Preventative health care Coronary artery disease involving kenaitze coronary artery of kenaitze heart without angina pectoris Cannabis abuse, daily use Ascending thoracic aortic aneurysm Pacemaker reprogramming/check DO NOT DELETE Anxiety about health Diarrhea Weight loss Beta Blockers - Daily Use Depression with anxiety H/O Lumbar Fusion - "6 levels" per pt Cannabis abuse Blood glucose elevated Decreased potassium in the blood Neuralgia Abnormal serum level of lipase CURRENT MEDICATIONS Current Outpatient Prescriptions Medication Sig Dispense Refill 5-Hydroxytryptophan 100 MG CAPS Take 2 capsules by mouth Daily. acyclovir (ZOVIRAX) 5% ointment Apply 1 Application topically every 3 hours. aluminum-magnesium hydroxide 200-200 MG/5ML suspension Take 5 mLs by mouth every 6 hour s as needed for Indigestion. Ascorbic Acid (VITAMIN C) 1000 MG tablet Take 1,000 mg by mouth Daily. aspirin 81 MG tablet Take 81 mg by mouth Daily. cephalexin (KEFLEX) 500 mg capsule Take 500 mg by mouth 4 times daily. cholecalciferoL (VITAMIN D-3) 1,000 units CAPS capsule Take by mouth. ciprofloxacin (CIPRO) 250 mg tablet Take 250 mg by mouth 2 times daily. clonazePAM (KLONOPIN) 0.5 mg tablet Take 0.5 mg by mouth 3 times daily. cloNIDine (CATAPRES) 0.2 MG tablet Take 1 tablet by mouth 3 times daily. 270 tablet 3 dicyclomine (BENTYL) 20 MG tablet Take 1 tablet by mouth 3 times daily as needed. Befor e meals 30 tablet 1 diphenhydrAMINE (BENADRYL) 25 MG capsule Take 25 mg by mouth as needed. diphenoxylate-atropine (LOMOTIL) 2.5-0.025 mg per tablet Take 1 tablet by mouth 4 times daily as needed for Diarrhea. flecainide (TAMBOCOR) 100 mg tablet Take 100 mg by mouth 2 times daily. loperamide (IMODIUM A-D) 2 MG tablet Take 4 mg by mouth. losartan (COZAAR) 25 mg tablet Take 25 mg by mouth Daily. Melatonin-Pyridoxine 1-10 MG TABS Take 10 mg by mouth nightly. Methylsulfonylmethane (MSM) 1000 MG TABS Take One time daily. metoprolol succinate (TOPROL-XL) 100 mg ER tablet Take 1 tablet by mouth Daily. 90 tabl et 1 Misc Natural Products (OSTEO BI-FLEX/5-LOXIN ADVANCED PO) Take by mouth. Takes 2 table ts in the morning and 2 tablets at night Multiple Vitamins-Minerals (CENTRUM SILVER PO) Take 1 tablet by mouth Daily. Nattokinase 100 MG CAPS Take by mouth 2 (two) times daily. NITROSTAT 0.[address] 1 tablet under the tongue if needed for chest pain may repeat every 5 minutes UP TO 3 DOSES; IF NO RELIEF AFTER 3RD DOSE, CALL 911 100 tablet 3 [place]-3 Fatty Acids (SALMON OIL-1000 PO) CAPS, one capsule by mouth daily twice daily ondansetron (ZOFRAN ODT) 4 mg disintegrating tablet Take 4 mg by mouth. ONE TOUCH DELICA LANCETS [facility] Check glucose as needed for hypoglycemia 100 each 3 pravastatin (PRAVACHOL) 40 MG tablet take 1 tablet by mouth NIGHTLY 90 tablet 3 raNITIdine (ZANTAC) 75 MG tablet Take 1 tablet by mouth 2 times daily. (Patient taking differently: Take 75 mg by mouth as needed.) 30 tablet 0 rOPINIrole (REQUIP) 1 mg tablet Take 1 tablet by mouth nightly. 0 sertraline (ZOLOFT) 50 mg tablet Take 50 mg by mouth Daily. UNABLE TO FIND Med Name: Pure CBD Tincture, 100 mg at night CBD ultra Concentrated Hemp oil for anxiety as needed CBD anti-inflammatory topical cream TID UNABLE TO FIND Take 1 tablet by mouth Daily. MARINE-D3 UNCODED MEDICATION Diagnosis: Obstructive Sleep Apnea ICD-9: 327.23 Length of Need: 99 Months 1 Device 0 valACYclovir (VALTREX) 1 g tablet Take 1,000 mg by mouth 2 times daily. 1 No current facility-administered medications for this visit. ALLERGIES Allergies Allergen Reactions Clarithromycin Palpitations Rapid heartbeat Duloxetine Other (See Comments) Blood pressure and heart increase/palpitations Prednisone Other (See Comments) Reaction: Mental Changes. Patient was "Homicide" when he took a high dose Hydrocodone-Acetaminophen Other (See Comments) agitation "makes me very irritable" Morphine Itching Fentanyl Itching and Rash Hydrocodone Itching and Anxiety Agitation and grumpiness Penicillins Rash Tramadol Hcl Itching ROS Review of Systems Constitutional: Positive for malaise/fatigue. Negative for chills and fever. HENT: Positive for hearing loss, nosebleeds (4 weeks ago) and tinnitus. Eyes: Negative for blurred vision and double vision. Respiratory: Negative for shortness of breath. Cardiovascular: Positive for chest pain and palpitations. Negative for leg swelling. Gastrointestinal: Positive for abdominal pain, blood in stool, diarrhea, nausea and vomitin g. Negative for constipation and heartburn. Genitourinary: Positive for frequency, hematuria (4 weeks ago) and urgency. Musculoskeletal: Positive for back pain (low back), joint pain and neck pain. Negative for falls and myalgias. Skin: Negative for itching and rash. Neurological: Positive for dizziness, tingling (in his feet and hands) and weakness. Negati ve for tremors, seizures and loss of consciousness. Lightheadedness -- yes last 2 days Endo/Heme/Allergies: Bruises/bleeds easily. Psychiatric/Behavioral: Negative for memory loss. The patient is nervous/anxious and has in somnia. OBJECTIVE: PHYSICAL EXAM BP 116/70 | Pulse 92 | Resp 18 | Ht 1.93 m (6' 4") | Wt 110.2 kg (242 lb 15.2 oz) | BM I 29.57 kg/m Physical Exam Constitutional: He is oriented to [...] no hepatosplenomegaly. There is no tenderness. Musculoskeletal: Normal range of motion. He exhibits no edema. Neurological: He is alert and oriented to person, place, and time. Gait abnormal. Skin: Skin is warm, dry and intact. No cyanosis. Nails show no clubbing. Psychiatric: He has a normal mood and affect. His mood appears not anxious. He does not exh ibit a depressed mood. Vitals reviewed. ECG: I personally independently reviewed ECG tracing during this visit (interpreted and phoebe led by another provider): Results for orders placed or performed during the hospital encounter of 01/02/19 ECG 12 lead Result Value Ref Range INTERPRETATION TEXT Atrial-paced rhythm with prolonged AV conduction Abnormal ECG When compared with ECG of 02-JAN-2019 18:08, (Unconfirmed) No significant change was found Confirmed by ANGELA MARADIAGA MD ([id number]) on 01/03/2019 8:10:39 PM LAB RESULTS reviewed during visit today primarily from [facility]: LIPID Lab Results Component Value Date TRIG 88 05/27/2012 HDL 42 05/27/2012 LDL 173 (A) 05/27/2012 CHOLHDL 3.4 06/22/2016 LDLEX 76 10/18/2017 HDLEX 63 10/18/2017 TRIGEX 63 10/18/2017 CHOLEX 152 10/18/2017 CHEMISTRY Lab Results Component Value Date GLU 96 01/02/2019 GLUEX 85 04/11/2018 NA 136 01/02/2019 NAEX 144 04/11/2018 K 3.9 01/02/2019 KEX 4.1 04/11/2018 CL 105 01/02/2019 CLEX 111 (A) 04/11/2018 CO2 22 (L) 01/02/2019 CO2EX 27 04/11/2018 CALCIUM 9.0 01/02/2019 ALKPHOS 62 01/02/2019 AST 25 01/02/2019 ASTEX 30 04/11/2018 ALT 19 01/02/2019 ALTEX 28 10/18/2017 BILITOT 0.8 01/02/2019 CREA 0.96 01/02/2019 BUN 13 01/02/2019 EGFR >60 04/03/2013 EGFREX >60 04/11/2018 CREEX 1.1 04/11/2018 HEMATOLOGY Lab Results Component Value Date WBC 7.2 01/02/2019 WBCEX 8.44 04/11/2018 HGB 15.2 01/02/2019 HGBEX 15.6 04/11/2018 HCT 43.6 01/02/2019 HCTEX 45.5 04/11/2018 PLT 120 (L) 01/02/2019 PLTEX 157 04/11/2018 Lab Results Component Value Date TSH 1.23 06/26/2013 TSHEX 1.15 05/12/2016 BNP 15 01/02/2019 I reviewed records from PCP for office visit on 12/22/2018 which is summarized in the HPI. RESULTS- I reviewed reports from [facility]: Xr Chest Ap Portable Result Date: 01/02/2019 XR CHEST AP PORTABLE 01/02/2019 6:20 PM HISTORY: CHEST PAIN. COMPARISON: 07/27/2018 Findings: The bilateral lungs are clear with no evidence for pleural effusion or pneumothorax. Heart s ize is within normal limits. Pulmonary vasculature is within normal limits. Aorta is normal. Mediastinum is unremarkable. No acute osseous or soft tissue abnormality identified. Cardia c pacer leads are unchanged. IMPRESSION - No acute intrathoracic abnormality identified. Dic tated and Signed by: Alok Wolfe MD shows, wireless even study from 07/21 until 08/22/2018, b aseline EKG shows atrial paced rhythm with heart rate of 75-130 bpm, PAC's in couplets and P VC's were noted, by Daljit Singletary MD Above data and testing is reviewed this visit; testing below is historical data unless othe rwise specified. ASSESSMENT: 1. Non-critical Coronary artery disease involving kenaitze coronary artery of kenaitze heart [facility] angina pectoris: A. Normal exercise sestamibi stress test on 05/25/09. LVEF by gated SPECT was 5 3%. B. Echocardiogram from 12/30/12 shows a Mild [...] attenuation cannot completely be ruled out. D. C 12/25/13, shows non critical coronary artery disease, mild ecstatic de dios ge to the left main artery, the coronary circulation is right dominant, normal left ventricu lar size, wall thickness and motion, preserved left ventricular systolic function, LVEF is 7 5%, normal systemic blood pressure, successful TR band application to the right radial arter y. E. Echocardiogram 03/19/15 shows a normal left ventricular size with mild leti ntric left ventricular hypertrophy, LVEF 60%, grade 1 left ventricular diastolic dysfunction , mild aortic root dilatation measuring 4.2 cm in diameter, mild mitral valve regurgitation, mild tricuspid valve regurgitation, mild aortic valve insufficiency. F. Echocardiogram 06/16/16, shows normal left ventricular size, wall thickness and motion, preserved left ventricular systolic function, LVEF is 70%, grade 1 left ventric ular diastolic dysfunction, normal valvular structure, mild aortic root dilatation measuring 4.0 cm in diameter, normal right-sided pressure, normal IVC with a normal respiratory colla pse, when compared to echocardiography on 03/19/15, no significant changes. G. Echocardiogram done 10/2017 showed top normal left atrial size. Normal left ventricular size, wall thickness and motion. Preserved left ventricular systolic function. L VEF is 65-70%. Grade 1 left ventricular diastolic dysfunction. Pacemaker lead in right ventr icle. Normal right-sided pressure. Normal valvular structure. Mild ascending aortic dilatation me asuring 4.3 cm in diameter. Aortic root measured 3.9 cm in diameter. Normal IVC with normal respiratory collapse H. stress test from 07/21/2018 shows Regadenoson EKG is negative. Normal Regade noson sestamibi myocardial perfusion study. Normal left ventricular size, wall thickness an d motion. Preserved left ventricular systolic function. LVEF by gated SPECT is 64%. I. Today, 01/11/2019, he is symptomatic. He has been seen recently in the ER for chest pain a week ago. Chest pain has been happening frequently not related to physical act ivity. He been having chest pain and palpitation. He is on a medical regimen with beta-block er and statin. There are no signs or symptoms of overt congestive heart failure, and his physical exam sh ows no significant fluid retention. He is in class II- Symptoms with moderate exertion of t he [place] [employer] functional class. Heart failure stage A pre - heart failure. 2. Symptomatic PVC's status post ablation: A. [...] ventricular arrhythmia performed by Dr. Gambino at [facility] on 01/30/2013. Patient had spontaneous PVC's from 3 predominan t morphology of left bundle branch block. Unfortunately, patient did have difficulty laying still during the procedure despite large amounts of sedation and coaching. After repeated attempts at ablation in one particular area, the patient continues to have rare PVC's, altho ugh, definitely less than pre procedure. Patient tolerated the procedure, pacemaker was pro grammed to AAIR/DDDR lower rate of 78. And diltiazem was added to the regimen as well. How ever, patient decided not to started diltiazem. Patient is scheduled to go back in 3 days t o [place] for an attempt of ablation under general [...] were unable to further interviews any more PVC's. D. Event monitor done on 11/10/2013 shows baseline transmission sinus rhythm at 73 beats per minute. There were a total of 5 events, no new symptoms waiting, palpitations , irregular heartbeat. All the transmissions were notable for sinus rhythm. No arrhythmias or ectopy were noted during any of the transmissions. E. Event monitor 4 weeks on 08/25/2018 shows, wireless even study from 07/21 unt il 08/22/2018, baseline EKG shows atrial paced rhythm with heart rate of 75-130 bpm, PAC's in couplets and PVC's were noted, by Daljit Singletary MD. F. Today, 01/11/2019, discussed results of event monitor. His labs look well. He will get h is lipids check. 3. Essential hypertension with goal blood pressure less than 130/80: A. Today, 01/11/2019, his blood pressure is well controlled. He does not require medication adjustment. He reports he does not take his blood pressure at home. 4. Ascending thoracic aorta aneurysm: A. CTA of chest and abdomen done on 02/27/2014 revealed a 4 cm aneurysmal dilat ation of the ascending thoracic aorta. This may be followed sequentially at 6 month interval s with non contrast CT of the chest. Prior low back and neck surgeries. Pacemaker. Fatty inf iltration of the liver. No renal stenoses or obstructions identified and no evidence of diss ection. 2 left renal arteries. B. Aneurysmal dilation of the ascending aorta measuring up to 3.9 cm in diamete r at the level of the right pulmonary artery. No evidence of dissection or periaortic fluid collection. No filling defects in the pulmonary arterial system to suggest pulmonary embolis m C. CTA chest 03/18/15 shows Stable ectasia of ascending thoracic aorta that katarina ures up to 4.1 cm. His echocardiogram at that same time showed 4.2 cm, so to minimize radiat ion exposure, would plan on checking CTA if echocardiogram shows change, and plan on recheck ing echocardiogram next spring. D. 01/11/2019 he will be scheduled for CT angiogram of the chest and abdomen. 5. Sinoatrial node dysfunction with symptomatic bradycardia: A. The echocardiogram on 05/25/09 revealed a normal left ventricular size and sys tolic function, LVEF 65 to 70%. B. Medtronic DDD permanent pacemaker implantation on 06/14/[address] Daljit masters. C. Last device interrogation shows no events. Heart rate histogram shows a fair distribution. There is a normal stable device function. Estimated remaining battery longevi ty is 3.5 years. D. Device was not checked in office today. E. Today, 01/11/2019, he pulse was 92 beats per minute. Device interrogation done remotely show a well functioning device. 6. Lightheadedness and dizziness/ presyncope: A. Episode of presyncope 05/28/10 evaluated in the emergency department, thought to have vasovagal symptoms. B. Today, 01/11/2019, he been feeling lightheadedness and dizziness the past two days. 7. History of cigarette smoking. A. He started smoking and he said he will stop after he finish is last 4 cigars. 8. Bipolar disease with anxiety/depression A. He is using clonazepam as needed. B. Today, 01/11/2019, he will see his PCP and see about his medication. PLAN: 1. Since patient has been having increasing atypical angina that has become more persistent over the last couple of months, he will be a candidate for a left heart catheterization to evaluate his coronary artery disease. Patient has not been able to tolerate nitrates becaus e of "incapacitating" headaches. He is a maximum dose of metoprolol that he can tolerate. 2. Schedule patient for CT angiogram of chest and abdomen to evaluate aortic aneurysm (thor acic and abdominal) 3. Patient has been off flecainide, therefore he will continue to stay off the flecainide. It is unsure why patient stopped taking this medication. But his device interrogation does not require any initiation of this medication at this point. 4. He will follow up in 4 to 6 weeks for office visit, or sooner with concerns. He will c ontact her office if he has any further problems Christine Clemente Tension Worker am acting as a scribe on behalf of, and in the pres ence of PARISA Lomas. - Christine M Sheoships, Tension Worker 01/11/2019 13:46 I, PARISA Lomas, personally performed the services described in this documentati on, as scribed in my presence and it is both accurate and complete. -PARISA Lomas 01/11/2019 Portions of this chart may have been created with [employer] voice recognition software. Occasi onal wrong-word or sound-alike substitutions may have occurred due to the inherent granger itations of voice recognition software. Please read the chart carefully and recognize, using context, where these substitutions have occurred. documented in this encounter Plan of Treatment [...] [place], | | | | | | [place] [address] | | | | | | [phone] | | | | | | | | +--------+ + + + + documented as of this encounter Procedures + +--------+ + + + | Procedure Name | Priori | Date/Time | Associated Diagnosis | Comments | | | ty | | | | + +--------+ + + + | CV COR ANGIO | Routin | 01/25/2019 | | Results for this | | | e | 9:29 AM | | procedure are in the | | | | PST | | results section. | + +--------+ + + + | CV LHC | Routin | 01/25/2019 | | Results for this | | | e | 9:29 AM | | procedure are in the | | | | PST | | results section. | + +--------+ + + + documented in this encounter Results CV CARDIAC PROCEDURE (01/25/2019 9:29 AM PST) + +-------+ + + + | Component | Value | Ref Range | Performed | Pathologist | | | | | At | Signature | + +-------+ + + + | LVEF-LVGRAM | 75 | % | [facility] | | | CARDIAC | | | | | | CATH | | | | | + +-------+ + + + + + | Specimen | + + | | + + + + ---+ | Narrative | Performed A t | + + ---+ | CARDIAC | [facility] | | CATHETERIZATION and CORONARY ANGIOGRAPHY PATIENT NAME/: | | | Moe Sanchez, (1960) MEDICAL RECORD NUMBER: | | | [id number] OF PROCEDURE: 01/25/2019 ENTRY LEVEL FINANCIAL ANALYST: Daljit | | | MD Gemini PROCEDURES PERFORMED:Coronary AngiographyLeft Heart | | | CatheterizationLeft Ventriculography Indications: Coronary artery | | | disease and chest pain DESCRIPTION OF PROCEDURE: Informed consent was | | | obtained from the patient, and a time-out was performed to verify the | | | patient's identification and planned procedure. The patient's right | | | wrist was then prepped and draped in the usual sterile fashion, and | | | anesthetized with 1 mL of buffered 1% lidocaine. For arterial access | | | modified Seldinger technique was used to place a 6 Fr. sheath in the | | | right radial artery (a normal Kevin's test was performed prior to the | | | procedure). Right heart catheterization was not performed on this | | | patient. After crossing the aortic valve, left ventriculography was | | | performed in the GARCIA projection. Selective coronary angiogram was | | | then performed in several sagittal and oblique projections. Wandy, | | | pigtail diagnostic catheters were used for this procedure. The | | | patient received a total of 5 mg of Versed and 0 mcg of fentanyl | | | intravenously for conscious sedation during the procedure. A total | | | of 65 mL Omnipaque 350 contrast was utilized. During procedure a | | | total of 400 mcg nitroglycerin, and 400 mcg nicardipine were given via | | | the radial sheath, and 4000 units heparin was given intravenously. | | | The procedure had no immediate complications. At the conclusion of | | | the procedure, the sheath was removed and hemostasis obtained with a | | | TR hemostatic band. FINDINGS: Hemodynamics: Ao - 96/72 mm Hg with a | | | mean of 83 mm HgLV - 95/0 mm HgLVEDP - 9 mm Hg Left ventriculography: | | | The left ventricular size and function were normal. LVEF is | | | calculated at 75%. There is no mitral valve regurgitation noted. | | | Left main artery: The left main artery is a medium caliber vessel | | | that bifurcates into the left anterior descending artery and left | | | circumflex artery. Left main artery has mild diffuse disease. Left | | | anterior descending artery: The left anterior descending artery is a | | | medium caliber vessel that wraps around the apex and gives rise to 2 | | | diagonal branches. The vessel has Eccentric 50% stenosis at the | | | midportion of the vessel. It gives rise to 2 diagonal branches. Left | | | circumflex artery: The left circumflex artery is a medium caliber | | | vessel that is non dominant. The vessel has mild diffuse disease. | | | It gives rise to 1 OM branches. Right coronary artery: The right | | | coronary artery is a large caliber vessel that is dominant. The | | | vessel has mild diffuse disease. It gives rise to a PDA and | | | Posterolateral branches. CONCLUSIONS:1. Noncritical coronary artery | | | disease; borderline 50% eccentric lesions to the mid LAD. Luminal | | | irregularity for the rest of the vascular territories.2. There is a | | | right dominate circulation.3. Normal LV systolic function with an EF | | | of 75%4. Systemic blood pressure is normal.5. There was successful | | | hemostasis with a TR hemostatic band. PLAN:1. Risk factor | | | modification and Aggressive medical management. [facility] | | | PROVIDER:Kirk French MD For additional detail as to the | | | procedures performed and the equipment that was utilized, please refer | | | to the Procedure Log. | | | | | |Ao - 96/72 mm Hg with a mean of 83 mm Hg | | |LV - 95/0 mm Hg | | |LVEDP - 9 mm Hg | | | | | |Left ventriculography: The left ventricular size and function were | | |normal. LVEF is calculated at 75%. There is no mitral valve | | |regurgitation noted. | | | | | |Left main artery: The left main artery is a medium caliber vessel that | | |bifurcates into the left anterior descending artery and left circumflex | | |artery. Left main artery has mild diffuse disease. | | | | | |Left anterior descending artery: The left anterior descending artery is a | | |medium caliber vessel that wraps around the apex and gives rise to 2 | | |diagonal branches. The vessel has Eccentric 50% stenosis at the | | |midportion of the vessel. It gives rise to 2 diagonal branches. | | | | | |Left circumflex artery: The left circumflex artery is a medium caliber | | |vessel that is non dominant. The vessel has mild diffuse disease. It | | |gives rise to 1 OM branches. | | | | | | | | |Right coronary artery: The right coronary artery is a large caliber | | |vessel that is dominant. The vessel has mild diffuse disease. It gives | | |rise to a PDA and Posterolateral branches. | | | | | | | | | | | |CONCLUSIONS: | | |1. Noncritical coronary artery disease; borderline 50% eccentric lesions | | |to the mid LAD. Luminal irregularity for the rest of the vascular | | |territories. | | |2. There is a right dominate circulation. | | |3. Normal LV systolic function with an EF of 75% | | |4. Systemic blood pressure is normal. | | |5. There was successful hemostasis with a TR hemostatic band. | | | | | | | | |PLAN: | | |1. Risk factor modification and Aggressive medical management. | | | | | | | | | | | | | | | | | | | | | | | | | | |PRIMARY CARE PROVIDER: | | |Kirk French MD | | | | | | | | | | | |For additional detail as to the procedures performed and the equipment | | |that was utilized, please refer to the Procedure Log. | | | | | + + ---+ + + | Procedure Note | + + | Daljit Singletary MD - 01/25/2019 9:38 AM PST Formatting of this note might be | | different from the original.CARDIAC CATHETERIZATION and CORONARY ANGIOGRAPHYPATIENT | | NAME/: Moe Sanchez, (1960) | | OF PROCEDURE: 01/25/2019PRIMARY COMMUNITY PRODUCT SPECIALIST: Daljit Singletary MD PROCEDURES | | PERFORMED:Coronary AngiographyLeft Heart CatheterizationLeft Ventriculography | | Indications: Coronary artery disease and chest painDESCRIPTION OF PROCEDURE:Informed | | consent was obtained from the patient, and a time-out was performed to verify the | | patient's identification and planned procedure. The patient's right wrist was then | | prepped and draped in the usual sterile fashion, and anesthetized with 1 mL of buffered | | 1% lidocaine. For arterial access modified Seldinger technique was used to place a 6 | | Fr. sheath in the right radial artery (a normal Kevin's test was performed prior to the | | procedure). Right heart catheterization was not performed on this patient. After | | crossing the aortic valve, left ventriculography was performed in the GARCIA projection. | | Selective coronary angiogram was then performed in several sagittal and oblique | | projections. Wandy, pigtail diagnostic catheters were used for this procedure. The | | patient received a total of 5 mg of Versed and 0 mcg of fentanyl intravenously for | | conscious sedation during the procedure. A total of 65 mL Omnipaque 350 contrast was | | utilized. During procedure a total of 400 mcg nitroglycerin, and 400 mcg nicardipine | | were given via the radial sheath, and 4000 units heparin was given intravenously. The | | procedure had no immediate complications.At the conclusion of the procedure, the sheath | | was removed and hemostasis obtained with a TR hemostatic band. FINDINGS:Hemodynamics:Ao | | - 96/72 mm Hg with a mean of 83 mm HgLV - 95/0 mm HgLVEDP - 9 mm HgLeft | | ventriculography: The left ventricular size and function were normal. LVEF is | | calculated at 75%. There is no mitral valve regurgitation noted.Left main artery: The | | left main artery is a medium caliber vessel that bifurcates into the left anterior | | descending artery and left circumflex artery. Left main artery has mild diffuse | | disease.Left anterior descending artery: The left anterior descending artery is a | | medium caliber vessel that wraps around the apex and gives rise to 2 diagonal branches. | | The vessel has Eccentric 50% stenosis at the midportion of the vessel. It gives rise | | to 2 diagonal branches.Left circumflex artery: The left circumflex artery is a medium | | caliber vessel that is non dominant. The vessel has mild diffuse disease. It gives | | rise to 1 OM branches.Right coronary artery: The right coronary artery is a large | | caliber vessel that is dominant. The vessel has mild diffuse disease. It gives rise | | to a PDA and Posterolateral branches. CONCLUSIONS:1. Noncritical coronary artery | | disease; borderline 50% eccentric lesions to the mid LAD. Luminal irregularity for the | | rest of the vascular territories.2. There is a right dominate circulation.3. Normal LV | | systolic function with an EF of 75%4. Systemic blood pressure is normal.5. There was | | successful hemostasis with a TR hemostatic band.PLAN:1. Risk factor modification and | | Aggressive medical management. | | at 9:33PRIMARY CARE PROVIDER:Kirk French MDFor additional detail as to the | | procedures performed and the equipment that was utilized, please refer to the Procedure | | Log. | | | |Ao - 96/72 mm Hg with a mean of 83 mm Hg | |LV - 95/0 mm Hg | |LVEDP - 9 mm Hg | | | |Left ventriculography: The left ventricular size and function were normal. LVEF is calcul ated at 75%. There is no mitral valve regurgitation noted. | | | |Left main artery: The left main artery is a medium caliber vessel that bifurcates into the left anterior descending artery and left circumflex artery. Left main artery has mild diff use disease. | | | |Left anterior descending artery: The left anterior descending artery is a medium caliber v essel that wraps around the apex and gives rise to 2 diagonal branches. The vessel has Ecce ntric 50% stenosis at the | |midportion of the vessel. It gives rise to 2 diagonal branches. | | | |Left circumflex artery: The left circumflex artery is a medium caliber vessel that is non dominant. The vessel has mild diffuse disease. It gives rise to 1 OM branches. | | | | | |Right coronary artery: The right coronary artery is a large caliber vessel that is dominan t. The vessel has mild diffuse disease. It gives rise to a PDA and Posterolateral branche s. | | | | | | | |CONCLUSIONS: | |1. Noncritical coronary artery disease; borderline 50% eccentric lesions to the mid LAD. L uminal irregularity for the rest of the vascular territories. | |2. There is a right dominate circulation. | |3. Normal LV systolic function with an EF of 75% | |4. Systemic blood pressure is normal. | |5. There was successful hemostasis with a TR hemostatic band. | | | | | |PLAN: | |1. Risk factor modification and Aggressive medical management. | | | | | | | | | | | | | | | | | |PRIMARY CARE PROVIDER: | |Kirk French MD | | | | | | | |For additional detail as to the procedures performed and the equipment that was utilized, lorraine hudson refer to the Procedure Log. | + + + +---------+ + + | Performing | Address | City/State/Zipcode | Phone Number | | Organization | | | | + +---------+ + + | [facility] | | | | + +---------+ + + documented in this encounter Visit Diagnoses + + | Diagnosis | + + | Stable angina pectoris (HCC) | + + | Coronary artery disease, angina presence unspecified, unspecified vessel or lesion | | type, unspecified whether kenaitze or transplanted heart | + + documented in this encounter Administered Medications + +--------+ +--------+------+------+ | Medication Order | MAR | Action | Dose | Rate | Site | | | Action | Date | | | | + +--------+ +--------+------+------+ | heparin 1,000 units/mL | Given | 01/26/20 | 4,000 | | | | injection ONCE PRN, Starting Wed | | 19 9:11 | Units | | | | 01/25/19 at 0911, Intra-op | | AM PST | | | | + +--------+ +--------+------+------+ +---+---+ | | | +---+---+ + +-------+ +--------+---+---+ | iohexol (OMNIPAQUE 350) 350 | Given | 01/26/20 | 65 mLs | | | | mg/mL injection ONCE PRN, | | 19 9:22 | | | | | Starting 01/25/19 at 0922, | | AM PST | | | | | Intra-op | | | | | | + +-------+ +--------+---+---+ +---+---+ | | | +---+---+ + +-------+ +---------+---+---+ | lidocaine buffered 0.9% | Given | 01/26/20 | 1.5 mLs | | | | injection ONCE PRN, Starting Wed | | 19 9:06 | | | | | 01/25/19 at 0906, Intra-op | | AM PST | | | | + +-------+ +---------+---+---+ +---+---+ | | | +---+---+ + +-------+ +------+---+---+ | midazolam (VERSED) 1 mg/mL | Given | 01/26/20 | 1 mg | | | | injection ONCE PRN, Starting Wed | | 19 9:13 | | | | | 01/25/19 at 0902, Intra-op | | AM PST | | | | + +-------+ +------+---+---+ +-------+ +------+---+---+ | Given | 01/26/20 | 1 mg | | | | | 19 9:09 | | | | | | AM PST | | | | +-------+ +------+---+---+ | Given | 01/26/20 | 1 mg | | | | | 19 9:08 | | | | | | AM PST | | | | +-------+ +------+---+---+ +---+---+ | | | +---+---+ + +-------+ +---------+---+---+ | niCARdipine in dextrose | Given | 01/26/20 | 200 mcg | | | | (CARDENE) 0.2 mg/ml syringe ONCE | | 19 9:17 | | | | | PRN, Starting 01/25/19 at | | AM PST | | | | | 0917, Intra-op | | | | | | + +-------+ +---------+---+---+ +---+---+ | | | +---+---+ + +-------+ +---------+---+--------+ | nitroglycerin 100 mcg/mL | Given | 01/26/20 | 400 mcg | | Right | | syringe ONCE PRN, Starting Wed | | 19 9:10 | | | Arm | | 01/25/19 at 0910, Intra-op | | AM PST | | | | + +-------+ +---------+---+--------+ +---+---+ | | | +---+---+ + +---------+ +--------+-------+ + | sodium chloride 0.9% (NS) | New Bag | 01/26/20 | 1,000 | 125 | Left Arm | | infusion at 125 mL/hr, | | 19 8:40 | mLs | mL/hr | | | Intravenous, CONTINUOUS, Starting | | AM PST | | | | | 01/25/19 at 0815, For | | | | | | | procedure only, not to exceed 1 | | | | | | | liter., Pre-op | | | | | | + +---------+ +--------+-------+ + +---+---+ | | | +---+---+ documented in this encounter
--- OUTSIDE RECORDS SUMMARY | ~2020-06-15 | XMS | Encounter Summary ---
Demographics + + + | Address | [address] | | | [place] [address] | + + + | Home Phone | | + + + | Preferred Language | Unknown | + + + | Marital Status | | + + + | Temple Affiliation | 1013 | + + + | Race | Unknown | + + + | Ethnic Group | Unknown | + + + Author + + + | Author | [facility] | | | and [place] | + + + | Organization | [facility] | | | [...] Team Providers + +------+ + | Care Corporate Development Intern Name | Role | Phone | + +------+ + | Kirk French MD | PCP | | + +------+ + Encounter Details +--------+ + + + + | Date | Type | Department | Care Team | Description | +--------+ + + + + | 12/31/ | Orders Only | [facility] | Kirk French | | | 2017 | | [address] | | | | | [place] | [address] | | | | | [address] | [place] [address] | | | | | [phone] | [phone] | | | | | | | [...] [place], | | | | | | [place] [address] | | | | | | [phone] | | | | | | | [...]
--- OUTSIDE RECORDS SUMMARY | ~2020-06-15 | XMS | Encounter Summary ---
Demographics + + + | Address | [address] | | | [place] [address] | + + + | Home Phone | | + + + | Preferred Language | Unknown | + + + | Marital Status | | + + + | Congregation Affiliation | 1013 | + + + [...] Team Providers + +------+ + | Care Manufacturing Engineer Machining Name | Role | Phone | + +------+ + PCP | Unavailable | + +------+ + Encounter Details +--------+ + + + + | Date | Type | Department | Care Team | Description | +--------+ + + + + | 08/02/ | Hospital | [facility] | | | | 2001 | Encounter | [facility] | | | | | | [address] | | | | | | [place] | | | | | | [address] | | | | | | [phone] | | | +--------+ + + + [...] | | | | | | [place] [address] | | | | | | [phone] | | | | | | | | +--------+ + + + + documented as of this encounter Visit Diagnoses Not on filedocumented in this encounter"
--- OUTSIDE RECORDS SUMMARY | ~2020-06-15 | XMS | Encounter Summary ---
Demographics + + + | Address | [address] [place] [address] [address] | | | [place] [address] | + + + | Home Phone | | + + + | Preferred Language | Unknown | + + + | Marital Status | | + + + | Restorationism Affiliation | Unknown | + + + | Race | White | + + + | Ethnic Group | Not or | + + + Author + + + | Author | [facility] | + + + | Organization | [facility] | + + + | Address | Unknown | + + + | Phone | Unavailable | + + + Support + + + + + | Name | Relationship | Address | Phone | + + + + + | Rachel Valencia | [address] | [place] | | | | | [address] | | + + + + + Care Team Providers + +------+ + | Care Janitorial Tech Name | Role | Phone | + [...] + +--------+ + + + + | New Request | | Non [facility] | Diagnoses | [place], | Non-[facility] | | | | Department | Diarrhea, | Bridgette Escobar MD | Epic Dept | | | | | unspecified | [address] | | | | | | type | [address] | | | | | | Unintentiona | [place], [place] | | | | | | l weight | [address] | | | | | | loss | Phone: | | | | | | Procedures | [phone] | | | | | | CONSULT TO | Fax: | | | | | | NON - IVETTE | [phone] | | | | | | PROVIDER | | | + +--------+ + + + + Reason for Visit +--------+ + | Reason | Comments | +--------+ + | Other | stool tests normal, recommend hyoscyamine | +--------+ + Encounter Details +--------+ + + + + | Date | Type | Department | Care Team | Description | +--------+ + + + + | 10/18/ | Telephone | [facility] | Gonzalo Riosah Shawn, | Other (stool tests | | 2019 | | Center at [facility] [address] | MD [address] | normal, recommend | | | | [address] | [place], [place] | hyoscyamine) | | | | for Health and | [address] | | | | | [facility] | [phone] | | | | | [facility] [place] | | | | | | [address] | | | | | | [phone] | | | +--------+ + + + [...] + | Diagnosis | + + | Diarrhea, unspecified type - Primary | + + | Abdominal cramping Abdominal pain, unspecified site | + + | Unintentional weight loss Loss of weight | + + documented in this encounter"
--- OUTSIDE RECORDS SUMMARY | ~2020-06-15 | XMS | Encounter Summary ---
Demographics + + + | Address | [address] | | | [place] [address] | + + + | Home Phone | | + + + | Preferred Language | Unknown | + + + | Marital Status | | + + + | Islam Affiliation | 1013 | + + + [...] Providers + +------+ + | Care Retail Assistant Store Manager Name | Role | Phone | [...] Description | +--------+--------+ + + + | 01/22/ | Refill | [facility] | Kirk French | Medication Refill | | 2019 | | [facility] | [address] | | | | | [facility] [address] | | | | | [address] | [place] [address] | | | | | [place], [place] | [phone] | | | | | [address] | | | | | | [phone] | | | +--------+--------+ + + + [...] this encounter Miscellaneous Notes Telephone Encounter - Geri Bear Sample Checker - 01/23/2020 12:40 PM PSTRefill Shanell ctronically signed by Geri Bear Sample Checker at 01/23/2020 12:40 PM PSTdocumented in this encounter Plan of Treatment [...] [place], | | | | | | [place] [address] | | | | | | [phone] | | | | | | | | +--------+ + + + + documented as of this encounter Visit Diagnoses Not on filedocumented in this encounter"
--- OUTSIDE RECORDS SUMMARY | ~2020-06-15 | XMS | Encounter Summary ---
Demographics + + + | Address | [address] | | | [place] [address] | + + + | Home Phone | | + + + | Preferred Language | Unknown | + + + | Marital Status | | + + + | Yazidi Affiliation | 1013 | + + + [...] Providers + +------+ + | Care Fisher Eel Spear Name | Role | Phone | + +------+ + | Kirk French MD | PCP | | + +------+ + Reason for Visit + + + | Reason | Comments | + + + | Follow-up | 4-8 weeks follow up | + + + | Tachycardia | | + + + | Coronary Artery | | | Disease | | + + + | Hyperlipidemia | | + + + | Hypertension | | + + + | Syncope | | + + + Encounter Details +--------+---------+ + + + | Date | Type | Department | Care Team | Description | +--------+---------+ + + + | 08/24/ | Office | [facility] | [place], | Ascending thoracic | | 2018 | Visit | CARDIOLOGY [address] | [address] | aortic aneurysm | | | | [place], | [place], | ([facility]) (Primary Dx); | | | | [place] [address] | [place] [address] | Syncope, unspecified | | | | [phone] | [phone] | syncope type; | | | | | | Hypertension, | | | | | | unspecified type; | | | | | | Coronary artery | | | | | | disease involving | | | | | | big sandy coronary | | | | | | artery of big sandy | | | | | | heart without angina | | | | | | pectoris; | | | | | | Tachycardia; | | | | | | Symptomatic PVCs; | | | | | | Sinoatrial node | | | | | | dysfunction (HCC) | | | | | | with symptomatic | | | | | | bradycardia; | | | | | | Pacemaker | | | | | | reprogramming/check; | | | | | | Presence of | | | | | | permanent cardiac | | | | | | pacemaker | +--------+---------+ + + + Social History [...] + + + | Blood Pressure | 124/80 | 08/24/2018 10:34 AM | | | | | PDT | | + + + + + | Pulse | 80 | 08/24/2018 10:34 AM | | | | | PDT | | + + + + + | Temperature | - | - | | + + + + + | Respiratory Rate | 18 | 08/24/2018 10:34 AM | | | | | PDT | | + + + + + | Oxygen Saturation | - | - | | + + + + + | Inhaled Oxygen | - | - | | | Concentration | | | | + + + + + | Weight | 115.5 kg (254 lb | 08/24/2018 10:34 AM | | | | 10.1 oz) | PDT | | + + + + + | Height | 193 cm (6' 4") | 08/24/2018 10:34 AM | | | | | PDT | | + + + + + | Body Mass Index | 30.99 | 08/24/2018 10:34 AM | | | | | PDT [...] documented as of this encounter Progress Notes Janeen Vega ARNP - 08/24/2018 10:45 AM PDTFormatting of this note might be differen t from the original. PATIENT NAME: Moe Sanchez : 1960: AGE: 58 y.o. Pacemaker Evaluation Report August 24, 2018 Reason for evaluation: routine Indication for pacemaker: Sinoatrial node dysfunction (HCC) (I49.5, 427.81); Pacemaker reprogramming/check (Z45.018, V53.31); Presence of permanent cardiac pacemaker (Z95.0, V45.01) Patient was seated and reclined and device was interrogated. Pacemaker parameters, battery status, percentages pacing and significant arrhythmias were reviewed. Heart rate histograms were assessed for adequate heart rate response and any alerts reviewed. Appropriate lead imp edance testing was performed. Pacing impedances were reviewed for any significant changes. S ensing tests were performed by decreasing LRL. Adequacy of pacing thresholds were tested by increasing LRL for each lead and recorded for loss of capture. Final outputs were assessed f or adequate safety margins. Please see the scanned Paceart report and device PDF for further details. Data collected by Shabana Lama RN The technical aspect of downloading device data was supervised by Jonathan Jaeger MD Underlying rhythm: Sinus bradycardia 42-58 beats. 1 mode switch episodes accounting for <0.1% of the time. 0 atrial high rate episodes. 0 ventricular high rate episodes. PVC singles 675 PVC singles 337/month PVC runs 4 PVC runs 2 /month Histogram good. Battery longevity 29 months. Normal and stable device function. Quarterly remote monitoring. Device interrogation due in office in 12 months Santos Allison ARNP - 08/24/2018 10:45 AM PDTFormatting of this note might be different from the origin al. PATIENT NAME: Moe Sanchez : 1960: AGE: 58 y.o. PRIMARY CARE: Kirk French MD OUTPATIENT FOLLOW UP VISIT Date of Service: 08/24/2018 HISTORY OF PRESENT ILLNESS: Moe Sanchez is a 58 y.o. male with a history of non-critical coronary artery d isease involving big sandy coronary artery of big sandy heart without angina pectoris, essential h ypertension, symptomatic bradycardia status post Medtronic dual-chamber permanent pacemaker implantation 06/14/09, frequent premature ventricular contractions status post ablation júniorin malik 2012, and bipolar disorder with anxiety. He is being seen today for follow up palpitation s and chest pain. He was last seen 06/27/2018 at which time recommended treat symptomatic recurrent PVCs with additional flecainide 100 mg twice a day, and check EKG once a day 2. Schedule patient fo r 4 week event monitor for palpitations/PVCs to determine morphology. Patient might be a can didate for repeat PVC ablation. Schedule patient for stress test for the work up of chest pa in and risk stratify CAD. He was recommend a therapeutic lifestyle change including walking 30 minutes a day, choosing healthy choices of diet, including DASH diet and weight reduction . He would follow-up in 6 to 8 weeks. Since that time, he has been "feeling better". Patient was seen in the emergency room on 0 07/27/2018 with complaints of chest pain and palpitations. He was treated with anxiety medic ation and did not relieve his symptoms. He was then given a GI cocktail with significant im provement of symptoms. He was discharged home. He states that he was having some side effe cts in his stomach and intestines and he quit taking the flecainide after a week. He has not taken it since. He was off the flecainide when he had the Holter monitor done. He has been busy doing things around his house. He has not noticed that his palpitations have worsened. He has had no leg swelling or lightheadedness or dizziness. He thinks his anxiety plays a "b ig roll on my symptoms". Symptoms seem to worsened when he is anxious. MEDICAL, SURGICAL, AND PERSONAL HISTORY Past Medical, [...] Preventative health care Coronary artery disease involving big sandy coronary artery of big sandy heart without angina pectoris Cannabis abuse, daily use Ascending thoracic aortic aneurysm Pacemaker reprogramming/check DO NOT DELETE Anxiety about health Diarrhea Weight loss Beta Blockers - Daily Use Depression with anxiety H/O Lumbar Fusion - "6 levels" per pt CURRENT MEDICATIONS Current Outpatient Prescriptions Medication Sig Dispense Refill Ascorbic Acid (VITAMIN C) 1000 MG tablet Take 1,000 mg by mouth Daily. aspirin 81 MG tablet Take 81 mg by mouth Daily. cholecalciferoL (VITAMIN D-3) 1,000 units CAPS capsule Take by mouth. clonazePAM (KLONOPIN) 0.5 mg tablet Take 0.5 mg by mouth 3 times daily. clonazePAM (KLONOPIN) 0.5 mg tablet 0 cloNIDine (CATAPRES) 0.2 MG tablet Take 1 tablet by mouth 3 times daily. 270 tablet 3 diphenhydrAMINE (BENADRYL) 25 MG capsule Take 25 mg by mouth as needed. Methylsulfonylmethane (MSM) 1000 MG TABS Take One [...] 3RD DOSE, CALL 911 100 tablet 3 [place]-3 Fatty Acids (SALMON OIL-1000 PO) CAPS, one capsule by mouth daily twice daily ONE TOUCH DELICA LANCETS [facility] [place] Check glucose as needed for hypoglycemia 100 each 3 pravastatin (PRAVACHOL) 40 MG tablet take 1 tablet by mouth NIGHTLY 90 tablet 3 raNITIdine (ZANTAC) 75 MG tablet Take 1 tablet by mouth 2 times daily. (Patient taking differently: Take 75 mg by mouth as needed.) 30 tablet 0 rOPINIrole (REQUIP) 1 mg tablet Take 1 tablet by mouth nightly. 0 UNABLE TO FIND Take 1 tablet by [...] and heart increase/palpitations Prednisone Other (See Comments) Patient was "Homicide" when he took a high dose Morphine Itching Fentanyl Itching and Rash Hydrocodone Itching and Anxiety Agitation and grumpiness Penicillins Rash Tramadol Hcl Itching ROS Review of Systems Constitutional: Positive for malaise/fatigue. Respiratory: Positive for shortness of breath. Cardiovascular: Positive for chest pain, palpitations and leg swelling. Neurological: Positive for dizziness and weakness. Lightheaded-Yes OBJECTIVE: PHYSICAL EXAM BP 124/80 | Pulse 80 | Resp 18 | Ht 1.93 m (6' 4") | Wt 115.5 kg (254 lb 10.1 oz) | BM I 30.99 kg/m Physical Exam Constitutional: He is oriented [...] or performed during the hospital encounter of 07/27/18 ECG 12 lead Result Value Ref Range INTERPRETATION TEXT Atrial-paced rhythm with prolonged AV conduction Nonspecific T wave abnormality Inferior leads Abnormal ECG When compared with ECG of 01-JUL-2018 10:41, Nonspecific T wave abnormality Inferior leads is now present Confirmed by ANGELA MARADIAGA MD ([id number]) on 07/28/2018 6:03:35 AM LAB RESULTS reviewed during visit today primarily from [facility]: LIPID Lab Results Component Value Date TRIG 88 05/27/2012 HDL 42 05/27/2012 LDL 173 (A) 05/27/2012 CHOLHDL 3.4 06/22/2016 LDLEX 76 10/18/2017 HDLEX 63 10/18/2017 TRIGEX 63 10/18/2017 CHOLEX 152 10/18/2017 CHEMISTRY Lab Results Component Value Date GLU 98 07/27/2018 GLUEX 85 04/11/2018 NA 137 07/27/2018 NAEX 144 04/11/2018 K 4.3 07/27/2018 KEX 4.1 04/11/2018 CL 103 07/27/2018 CLEX 111 (A) 04/11/2018 CO2 26 07/27/2018 CO2EX 27 04/11/2018 CALCIUM 9.5 07/27/2018 ALKPHOS 53 07/27/2018 AST 37 07/27/2018 ASTEX 30 04/11/2018 ALT 37 07/27/2018 ALTEX 28 10/18/2017 BILITOT 1.3 07/27/2018 CREA 1.06 07/27/2018 BUN 14 07/27/2018 EGFR >60 04/03/2013 EGFREX >60 04/11/2018 CREEX 1.1 04/11/2018 HEMATOLOGY Lab Results Component Value Date WBC 7.2 07/27/2018 WBCEX 8.44 04/11/2018 HGB 17.4 07/27/2018 HGBEX 15.6 04/11/2018 HCT 49.3 07/27/2018 HCTEX 45.5 04/11/2018 PLT 142 07/27/2018 PLTEX 157 04/11/2018 I reviewed records from [facility] for emergency department visit o n 07/27/2018 which is summarized in the HPI. Above data and testing is reviewed this visit; testing below is historical data unless othe rwise specified. ASSESSMENT: 1.Symptomatic PVC's status post ablation: A. 48-hour Holter monitor from 01/20/10 shows predominant normal sinus rhythm with DDD pacing noted, heart rate 60 to 155 beats per minute, average 87 beats per m inute; occasional premature atrial contractions, including rare couplets; very frequent barbara ature ventricular contractions with occasional ventricular bigeminy noted. B. EP study and ablation for ventricular arrhythmia performed by Dr. Gambino at [facility] on 01/30/2013. Patient had spontaneous PVCs from 3 predominant morphology of left bundle branch block. Unfortunately, patient did have diffi culty laying still during the procedure despite large amounts of sedation and coaching. Af ter repeated attempts at ablation in one particular area, the patient continues to have rare PVCs, although, definitely less than pre procedure. Patient tolerated the procedure, pace maker was programmed to AAIR/DDDR lower rate of 78. And diltiazem was added to the regimen as well. However, patient decided not to started diltiazem. Patient is scheduled to go back in 3 days to [place] for an attempt of ablation under general anesthesia. C. On 04/03/2013 patient underwent second attempt for PVC ablation u nder general anesthesia. According to the procedure notes from procedure a first and secon d ablation were performed in the areas mapped. After ablation, they were no longer spontan eous recurrence of the PVC throughout the remainder of the procedure over a greater than 30 minute waiting period. A "chari" of ablation lesion was performed and the area, because an area was right next to arrange in the patient's anatomy due to restrictions caused the ca theter to drop off the ridge they did hold breath brought to 30 seconds to allow for ablatio n of the lesions. The patient tolerated the procedure well with no immediate complications and they were unable to further interviews any more PVCs. D. Event monitor done on 11/10/2013 shows baseline transmission sinu s rhythm at 73 beats per minute. There were a total of 5 events, no new symptoms waiting, palpitations, irregular heartbeat. All the transmissions were notable for sinus rhythm. No arrhythmias or ectopy were noted during any of the transmissions. E. personally reviewed tracings from Holter monitor. Final report is not done yet. Preliminary report is indicated patient did not have any significant amoun t of PVCs. He had a couple runs of atrial tachycardia with maximum heart rate of 131. Pham ent symptoms have been improved and there no longer an issue at this point. He is physicall y active and has had no increasing angina or dyspnea at this point. Palpitations have also decreased in intensity and frequency. He is in class II of the [place] [employer] f unctional class. There are no signs or symptoms of overt congestive heart failure. Physica l examination reveals no signs of fluid retention. The plan will be to increase metoprolol if patient continues having symptoms with these at rial tachycardia, at the same time decrease clonidine to prevent having any hypotension. We won't arrange medications at this time because patient's symptoms have improved and almost subsided. 2. Non-critical Coronary artery disease involving big sandy coronary artery of big sandy heart [facility] angina pectoris: A. Normal exercise sestamibi stress test on 05/25/09. LVEF by [facility] ed SPECT was 53%. B. Echocardiogram from 12/30/12 shows a Mild left atrial dilatatio n. A normal left ventricular size, wall thickness and motion. Preserved left ventricular systolic function. LVEF is 65%. A mild aortic root dilatation measuring 3.[address] A mildly thickened mitral valve with a mild mitral valve regurgitation. A mild aort ic valve regurgitation. Mild tricuspid valve regurgitation. C. Persantine sestamibi stress test done on shows a Persa ntine EKG is negative. An abnormal Persantine sestamibi myocardial perfusion imaging study with a small sized, reversible defect of a mild stability of the proximal inferior, mid inf erior and distal inferior wall. This suggests the possibility of a myocardial ischemia of the right coronary artery territory. A normal left ventricular size, wall thickness and mo tion. Preserved left ventricular systolic function. LVEF is 66 percent by gated SPECT. Of note, diaphragmatic inferior wall soft tissue attenuation cannot completely be ruled out . D. C 12/25/13, shows non critical coronary artery disease, mild e cstatic change to the left main artery, the coronary circulation is right dominant, normal l eft ventricular size, wall thickness and motion, preserved left ventricular systolic functio n, LVEF is 75%, normal systemic blood pressure, successful TR band application to the right radial artery. E. Echocardiogram 03/19/15 shows a normal left ventricular size wi th mild concentric left ventricular hypertrophy, LVEF 60%, grade 1 left ventricular diastoli c dysfunction, mild aortic root dilatation measuring 4.2 cm in diameter, mild mitral valve r egurgitation, mild tricuspid valve regurgitation, mild aortic valve insufficiency. F. Echocardiogram 06/16/16, shows normal left ventricular size, w all thickness and motion, preserved left ventricular systolic function, LVEF is 70%, grade 1 left ventricular diastolic dysfunction, normal valvular structure, mild aortic root dilatat ion measuring 4.0 cm in diameter, normal right-sided pressure, normal IVC with a normal resp iratory collapse, when compared to echocardiography on 03/19/15, [...] LVEF by gated SPECT is 64%. I. Patient continues to be asymptomatic at this point for angina at rest or on exertion. 3. Essential hypertension with goal blood pressure less than 130/80: A. Blood pressure in office today is well controlled. 4. Sinoatrial node dysfunction with symptomatic bradycardia: A. The echocardiogram on 05/25/09 revealed a normal left ventricular s ize and systolic function, LVEF 65 to 70%. B. Medtronic DDD permanent pacemaker implantation on 06/14/[address] Juan Diego Singletary. C. Last device interrogation shows no events. Heart rate histogram s hows a fair distribution. There is a normal stable device function. Estimated remaining bhumika agosto longevity is 3.5 years. D. Device was not checked in office today. 5. Lightheadedness and dizziness/ presyncope: A. [facility] thought to have vasovagal symptoms. B. 08/24/2018 this is not a concerned at this point. 6. History of cigarette smoking. 7. Bipolar disease with anxiety/depression A. He is using clonazepam as needed. 8. Ascending thoracic aorta aneurysm. Not addressed today. A. CTA of chest and abdomen done [...] rg n on rechecking echocardiogram next spring. D. See section 1F PLAN: 1. The current medical regimen is effective; continue present plan and medications.The rg n will be to increase metoprolol if patient continues having symptoms with these atrial tach ycardia, at the same time decrease clonidine to prevent having any hypotension. We won't ar range medications at this time because patient's symptoms have improved and almost subsided. 2. He will follow up in 1 year, per office visit and device interrogation or sooner with co vilma. Portions of this chart may have been created with [employer]anda voice recognition software. Occasi onal wrong-word or sound-alike substitutions may have occurred due to the inherent granger itations of voice recognition software. Please read the chart carefully and recognize, using context, where these substitutions have occurred. documented in th is encounter Plan of Treatment +--------+ + + [...] W | | | | | | [place], | | | | | | [place] [address] | | | | | | [phone] | | | | | | | | +--------+ + + + + documented as of this encounter Visit Diagnoses + + | Diagnosis | + + | Ascending thoracic aortic aneurysm (HCC) - Primary Thoracic aneurysm without mention | | of rupture | + + | Syncope, unspecified syncope type | + + | Hypertension, unspecified type | + + | Coronary artery disease involving big sandy coronary artery of big sandy heart without | | angina pectoris | + + | Tachycardia Tachycardia, unspecified | + + | Symptomatic PVCs Other premature beats | + + | Sinoatrial node dysfunction (HCC) with symptomatic bradycardia Sinoatrial node | | dysfunction | + + | Pacemaker reprogramming/check Fitting and adjustment of cardiac pacemaker | + + | Presence of permanent cardiac pacemaker Cardiac pacemaker in situ | + + documented in this encounter
--- OUTSIDE RECORDS SUMMARY | ~2020-06-15 | XMS | Encounter Summary ---
Demographics + + + | Address | [address] | | | [place] [address] | + + + | Home Phone [...] Team Providers + +------+ + | Care Box Packer Name | Role | Phone | + +------+ + | Kirk French MD | PCP | | + +------+ + Encounter Details +--------+ + + + + | Date | Type | Department | Care Team | Description | +--------+ + + + + | 12/14/ | Abstract | [facility] [place] | Provider, | | | 2018 | | GASTROENTEROLOGY | MD [address] | | | | | [address] | [address] [place] | | | | | [address] | [place] [address] | | | | | [address] | | | | | | [phone] | | | +--------+ + + + [...] | | | | | | [place] [address] | | | | | | [phone] | | | | | | | | +--------+ + + + + documented as of this encounter Visit Diagnoses Not on filedocumented in this encounter"
--- OUTSIDE RECORDS SUMMARY | ~2020-06-15 | XMS | Encounter Summary ---
Demographics + + + | Address | [address] | | | [place] [address] | + + + | Home Phone | | + + + | Preferred Language | Unknown | + + + | Marital Status | | + + + | Tenriism Affiliation | 1013 | + + + | Race | Unknown | + + + | Ethnic Group | Unknown | + + + Author + + + | Author | [facility] | | | and [place] | + + + | Organization | [facility] | | [...] Team Providers + +------+ + | Care Behavioral Science Chair Name | Role | Phone | + +------+ + | Kirk French MD | PCP | | + +------+ + Encounter Details +--------+ + + + + | Date | Type | Department | Care Team | Description | +--------+ + + + + | 10/25/ | [facility] | [facility] | Kirk French | Aneurysm (HCC) | | 2017 | Encounter | MED CTR ULTRASOUND | D, MD [address] | | | | | [address] [place] | [address] | | | | | [place], [place] | [place] [address] | | | | | [address] | [phone] | | | | | [phone] | | | | | | | Vicki Donahue, | | | | | | Technologist [...] + + + +---------+ + + | Chassell-3 Fatty | CAPS, one capsule by | [...] | | | | | | [place] [address] | | | | | | [phone] | | | | | | | | +--------+ + + + + documented as of this encounter Visit Diagnoses + + | Diagnosis | + + | Aneurysm (HCC) Aneurysm of unspecified site | + + documented in this encounter"
--- OUTSIDE RECORDS SUMMARY | ~2020-06-15 | XMS | Encounter Summary ---
Demographics + + + | Address | [address] | | | [place] [address] | + + + | Home Phone [...] Team Providers + +------+ + | Care Press Operator Heavy Duty Name | Role | Phone | + +------+ + PCP | Unavailable | + +------+ + Encounter Details +--------+ + + + + | Date | Type | Department | Care Team | Description | +--------+ + + + + | 10/19/ | Hospital | [facility] | | | | 1992 | Encounter | MED CTR EMERGENCY | | | | | | [address] | | | | | | [place] | | | | | | [address] | | | | | | [phone] | | | +--------+ + + + [...] | | | | | | [place] [address] | | | | | | [phone] | | | | | | | | +--------+ + + + + documented as of this encounter Visit Diagnoses Not on filedocumented in this encounter"
--- OUTSIDE RECORDS SUMMARY | ~2020-06-15 | XMS | Encounter Summary ---
Demographics + + + | Address | [address] | | | [place] [address] | + + + | Home Phone [...] Team Providers + +------+ + | Care Bioinformatics Research Technician Name | Role | Phone | + [...] | | | | | DDD | [place] [address] | [facility] | | | | | (degenerativ | [address] [facility] | | | | | e disc | [facility] | MEDICAL | | | | | disease), | [address] | CENTER [address] | | | | | lumbar | [address] | [place] | | | | | Chronic | [place], [place] | [place], | | | | | left-sided | [address] | [place] [address] | | | | | low back | Phone: | Phone: | | | | | pain with | [phone] | [phone] | | | | | left-sided | Fax: | Fax: | | | | | sciatica | [phone] | [phone] | | | | | History of [...] Closed | | Radiology | Diagnoses | [place], | [address] | | | | | DDD | Scotty C, HELP DESK COORDINATOR | [address] | | | | | (degenerativ | [address] | [place], | | | | | e disc | [facility] | [place] [address] | | | | | disease), | [address]IVE [address] | Phone: | | | | | lumbar | B | [phone] | | | | | Chronic | [place], [place] | Fax: | | | | | left-sided | [address] | [phone] | | | | | low back | Phone: | | | | | | pain with | [phone] | | | | | | left-sided | Fax: | | | | | | sciatica | [phone] | | | | | | History [...] + + | 07/01/ | Hospital | [facility] | Scotty [place], | DDD (degenerative | | 2018 | Encounter | MED CTR [address] | HELP DESK COORDINATOR [address] [facility] | disc disease), | | | | [place], | [address] | lumbar; Chronic | | | | [place] [address] | [place] [address] | left-sided low back | | | | [phone] | [phone] | pain with left-sided | | | [...] + + + +---------+ + + | Ponce-3 Fatty | CAPS, one capsule by | [...] | | | | | | [place] [address] | | | | | | [phone] | | | | | | | [...]
--- OUTSIDE RECORDS SUMMARY | ~2020-06-15 | XMS | Encounter Summary ---
Demographics + + + | Address | [address] | | | [place] [address] | + + + | Home Phone | | + + + | Preferred Language | Unknown | + + + | Marital Status | | + + + | Hinduism Affiliation | 1013 | + + + | Race | Unknown | + + + | Ethnic Group | Unknown | + + + Author + + + | Author | [facility] | | | and [place] | + + + | Organization | [facility] | | | [...] Team Providers + +------+ + | Care Gas Station Clerk Name | Role | Phone | + +------+ + | Kirk French MD | PCP | | + +------+ + Encounter Details +--------+ + + + + | Date | Type | Department | Care Team | Description | +--------+ + + + + | 07/23/ | Orders Only | [facility] [place] | Darlene Tirado, | | | 2015 | | CARDIOLOGY [address] | RN | | | | | [place], | | | | | | [place] [address] | | | | | | [phone] | | | +--------+ + + + [...] [place], | | | | | | [place] [address] | | | | | | [phone] | | | | | | | | +--------+ + + + + documented as of this encounter Visit Diagnoses Not on filedocumented in this encounter"
--- OUTSIDE RECORDS SUMMARY | ~2020-06-15 | XMS | Encounter Summary ---
Demographics + + + | Address | [address] | | | [place] [address] | + + + | Home Phone | | + + + | Preferred Language | Unknown | + + + | Marital Status | | + + + | Mu-Ism Affiliation | 1013 | + + + | Race | Unknown | + + + | Ethnic Group | Unknown | + + + Author + + + | Author | [facility] | | | and [place] | + + + | Organization | [facility] | | | and [place] | + + + | Address | Unknown | + + + | Phone | Unavailable | + + + Support + + +---------+ + | Name | Relationship | Address | Phone | + + +---------+ + | Nadinevarsha Kingsley | ECON | Unknown | | + + +---------+ + Care Team Providers + +------+ + | Care Safety And Health Manager Name | Role | Phone | + +------+ + | Kirk French MD | PCP | | + +------+ + Reason for Visit + +--------+ + | Reason | Onset | Comments | | | Date | | + +--------+ + | Appointment | 04/24/ | | | | 2014 | | + +--------+ + Encounter Details +--------+ + + + + | Date | Type | Department | Care Team | Description | +--------+ + + + + | 04/24/ | Telephone | [facility] [place] | Geri Angel, | Appointment | | 2014 | | CARDIOLOGY [address] | HELIARC WELDER [address] | | | | | [place], | [place] [facility], [place] | | | | | [place] [address] | [address] | | | | | [phone] | | | +--------+ + + + [...] this encounter Miscellaneous Notes Telephone Encounter - Briseida Martino - 05/21/2015 1:59 PM PDTPatient returned our call. Appointment rescheduled on 06-07-15 at 11:15 with Geri Angel and accepted by patient.Elec tronically signed by Briseida Martino at 05/21/2015 2:00 PM PDTTelephone Encounter - Nereida Lambert - 05/20/2015 11:54 AM PDTLeft voicemail message for patient to call back to reschedu le OC/THR appointment with Karen. elephone Encounter - Nereida Lambert - 05/17/2015 4:04 PM PDTLeft voicemail tori jose for patient to call back to rescheduleElectronically signed by Nereida Lambert at 015 4:04 PM PDTTelephone Encounter - Nereida Lambert - 05/10/2015 3:06 PM PDTI forgot to me ntion on previous encounter note that I did not leave a voicemail message for the patient as there was no mailbox. Appointment date below is a suggestion. Called patient to re-schedule his appointment to add a device check with Kailey. I found one o n 06-12-15@800w/kailey and @830w/gaby. Patient is from [place]. Therefore he might prefer one in the afternoon elephone Encounter - Nereida Patterson ra - 05/10/2015 2:54 PM PDTCalled patient to re-schedule his appointment to add a d evice check with Kailey. I found one on 06-12-15@800w/kailey and @830w/gaby. Patient is from [place]. Therefore he might prefer one in the afternoon. Electronically s igned by Nereida Lambert at 05/10/2015 2:57 PM PDTTelephone Encounter - Darlene Tirado RN - 05/10/2015 1:37 PM PDTYes he does need a device check. .................................. .........Darlene Tirado RN on 05/10/2015 at 13:37 elephone Encounter - Nereida Lambert - 05/10/2015 1:01 PM PDTCalled patient to offer a follow up with Geri melton. He stated that he has had enough with doctor appointments. He stated that he goes to the hospital to have tests done and they tell him that there's nothing wrong with him. State s he's "frustrated and fed up" then he said he would see Gaby. I scheduled a follow up for him to see Gaby on 06-10-15@130. Does patient also need a device check? elephone Encounter - Nereida Lambert Brea - 05/06/2015 4:50 PM PDTLeft voicemail mes jose for patient to call back to scheduleElectronically signed by Nereida Lambert at 5 4:51 PM PDTTelephone Encounter - Nereida Lambert Brea - 05/03/2015 3:51 PM PDTCalled patient t o reschedule. No answering machine was set up, unable to leave a voicemail messageElectronic ally signed by Nereida Lambert at 05/03/2015 3:51 PM PDTTelephone Encounter - Nereida Lambert Brea - 04/24/2015 10:22 AM PDTPatient was a no show on 04-23-15 @1300. Called patient to reschedule . Left voicemail message for patient to call back to get scheduled documented in this encount er Plan of Treatment +--------+ + + + [...] | | | | | | [place] [address] | | | | | | [phone] | | | | | | | | +--------+ + + + + documented as of this encounter Visit Diagnoses Not on filedocumented in this encounter
--- OUTSIDE RECORDS SUMMARY | ~2020-06-15 | XMS | Encounter Summary ---
Demographics + + + | Address | [address] | | | [place] [address] | + + + | Home Phone [...] Team Providers + +------+ + | Care Summer Camp Counselor Name | Role | Phone | + +------+ + | Kirk French MD | PCP | | + +------+ + Encounter Details +--------+ + + + + | Date | Type | Department | Care Team | Description | +--------+ + + + + | 12/28/ | Abstract | [facility] [place] | Vidhi Gillespie, | | | 2019 | | CARDIOLOGY [address] | [address] | | | | | [place] | | | | | | [place] [address] | | | | | | [phone] | | | +--------+ + + + [...] | | | | | | [place] [address] | | | | | | [phone] | | | | | | | | +--------+ + + + + documented as of this encounter Procedures + +--------+ + + + | Procedure Name | Priori | Date/Time | Associated Diagnosis | Comments | | | ty | | | | + +--------+ + + + | EXTERNAL LAB: YULIANA | Routin | 06/02/2019 | | Results for this | | | e | | | procedure are in the | | | | | | results section. | + +--------+ + + + | EXTERNAL LAB: | Routin | 06/02/2019 | | Results for this | | GLUCOSE | e | | | procedure are in the | | | | | | results section. | + +--------+ + + + | EXTERNAL LAB: TYLER | Routin | 06/02/2019 | | Results for this | | | e | | | procedure are in the | | | | | | results section. | + +--------+ + + + | EXTERNAL LAB: AST | Routin | 06/02/2019 | | Results for this | | | e | | | procedure are in the | | | | | | results section. | + +--------+ + + + | EXTERNAL LAB: | Routin | 06/02/2019 | | Results for this | | ALKALINE PHOSPHATASE | e | | | procedure are in the | | | | | | results section. | + +--------+ + + + | EXTERNAL LAB: | Routin | 06/02/2019 | | Results for this | | BILIRUBIN, TOTAL | e | | | procedure are in the | | | | | | results section. | + +--------+ + + + | EXTERNAL LAB: | Routin | 06/02/2019 | | Results for this | | ALBUMIN | e | | | procedure are in the | | | | | | results section. | + +--------+ + + + | EXTERNAL LAB: | Routin | 06/02/2019 | | Results for this | | PROTEIN, TOTAL | e | | | procedure are in the | | | | | | results section. | + +--------+ + + + | EXTERNAL LAB: | Routin | 06/02/2019 | | Results for this | | CALCIUM | e | | | procedure are in the | | | | | | results section. | + +--------+ + + + | EXTERNAL LAB: CARBON | Routin | 06/02/2019 | | Results for this | | DIOXIDE | e | | | procedure are in the | | | | | | results section. | + +--------+ + + + | EXTERNAL LAB: | Routin | 06/02/2019 | | Results for this | | CHLORIDE | e | | | procedure are in the | | | | | | results section. | + +--------+ + + + | EXTERNAL LAB: | Routin | 06/02/2019 | | Results for this | | POTASSIUM | e | | | procedure are in the | | | | | | results section. | + +--------+ + + + | EXTERNAL LAB: SODIUM | Routin | 06/02/2019 | | Results for this | | | e | | | procedure are in the | | | | | | results section. | + +--------+ + + + | EXTERNAL LAB: EGFR | Routin | 06/02/2019 | | Results for this | | | e | | | procedure are in the | | | | | | results section. | + +--------+ + + + | EXTERNAL LAB: | Routin | 06/02/2019 | | Results for this | | CREATININE | e | | | procedure are in the | | | | | | results section. | + +--------+ + + + | COMPREHENSIVE | Routin | 06/02/2019 | | Results for this | | METABOLIC PANEL | e | | | procedure are in the | | | | | | results section. | + +--------+ + + + documented in this encounter Results Comprehensive Metabolic Panel (06/02/2019) + +---------+ + + + | Component | Value | Ref Range | Performed | Pathologist | | | | | At | Signature | + +---------+ + + + | Anion Gap | 8 | 3 - 16 mmol/L | | | + +---------+ + + + | Globulin | 2.3 (A) | 2.1 - 0.38 | | | + +---------+ + + + | Albumin/Sandee | 2.0 (A) | 0.8 - 1.9 | | | | bulin Ratio | | | | | + +---------+ + + + | Bun/Creatin | 16.3 | | | | | ine | | | | | + +---------+ + + + + + | Specimen | + + | Blood | + + External Lab: BUN (06/02/2019) + +-------+ + + + | Component | Value | Ref Range | Performed | Pathologist | | | | | At | Signature | + +-------+ + + + | BUN, | 15 | 9 - 23 | | | | External | | | | | + +-------+ + + + External Lab: Glucose (06/02/2019) + +-------+ + + + | Component | Value | Ref Range | Performed | Pathologist | | | | | At | Signature | + +-------+ + + + | Glucose, | 90 | 60 - 106 | | | | External | | | | | + +-------+ + + + External Lab: ALT (06/02/2019) + +-------+ + + + | Component | Value | Ref Range | Performed | Pathologist | | | | | At | Signature | + +-------+ + + + | ALT, | 27 | 10 - 49 | | | | External | | | | | + +-------+ + + + External Lab: AST (06/02/2019) + +--------+ + + + | Component | Value | Ref Range | Performed | Pathologist | | | | | At | Signature | + +--------+ + + + | AST, | 35 (A) | 0 - 34 | | | | External | | | | | + +--------+ + + + External Lab: Alkaline Phosphatase (06/02/2019) + +-------+ + + + | Component | Value | Ref Range | Performed | Pathologist | | | | | At | Signature | + +-------+ + + + | ALP, | 76 | 46 - 116 | | | | External | | | | | + +-------+ + + + External Lab: Bilirubin, Total (06/02/2019) + +-------+ + + + | Component | Value | Ref Range | Performed | Pathologist | | | | | At | Signature | + +-------+ + + + | Bilirubin, | 0.7 | 0.3 - 1.2 | | | | Total, | | | | | | External | | | | | + +-------+ + + + External Lab: Albumin (06/02/2019) + +-------+ + + + | Component | Value | Ref Range | Performed | Pathologist | | | | | At | Signature | + +-------+ + + + | Albumin, | 4.7 | 3.2 - 4.8 | | | | External | | | | | + +-------+ + + + External Lab: Protein, Total (06/02/2019) + +-------+ + + + | Component | Value | Ref Range | Performed | Pathologist | | | | | At | Signature | + +-------+ + + + | Protein, | 7.0 | 5.7 - 8.2 | | | | Total, | | | | | | External | | | | | + +-------+ + + + External Lab: Calcium (06/02/2019) + +-------+ + + + | Component | Value | Ref Range | Performed | Pathologist | | | | | At | Signature | + +-------+ + + + | Calcium, | 9.6 | 8.7 - 10.4 | | | | External | | | | | + +-------+ + + + External Lab: Carbon Dioxide (06/02/2019) + +-------+ + + + | Component | Value | Ref Range | Performed | Pathologist | | | | | At | Signature | + +-------+ + + + | Carbon | 25 | 20 - 31 | | | | Dioxide, | | | | | | External | | | | | + +-------+ + + + External Lab: Chloride (06/02/2019) + +-------+ + + + | Component | Value | Ref Range | Performed | Pathologist | | | | | At | Signature | + +-------+ + + + | Chloride, | 106 | 98 - 107 | | | | External | | | | | + +-------+ + + + External Lab: Potassium (06/02/2019) + +-------+ + + + | Component | Value | Ref Range | Performed | Pathologist | | | | | At | Signature | + +-------+ + + + | Potassium, | 3.7 | 3.4 - 5.1 | | | | External | | | | | + +-------+ + + + External Lab: Sodium (06/02/2019) + +-------+ + + + | Component | Value | Ref Range | Performed | Pathologist | | | | | At | Signature | + +-------+ + + + | Sodium, | 139 | 136 - 145 | | | | External | | | | | + +-------+ + + + External Lab: eGFR (06/02/2019) + +-------+ + + + | Component | Value | Ref Range | Performed | Pathologist | | | | | At | Signature | + +-------+ + + + | eGFR, | >60 | | | | | | | | | | | [place], | | | | | | External | | | | | + +-------+ + + + + + | Specimen | + + | Blood | + + External Lab: Creatinine (06/02/2019) + +-------+ + + + | Component | Value | Ref Range | Performed | Pathologist | | | | | At | Signature | + +-------+ + + + | Creatinine, | 0.92 | 0.7 - 1.3 | | | | External | | | | | + +-------+ + + + + + | Specimen | + + | Blood | + + documented in this encounter Visit Diagnoses Not on filedocumented in this encounter"
--- OUTSIDE RECORDS SUMMARY | ~2020-06-15 | XMS | Encounter Summary ---
Demographics + + + | Address | [address] | | | [place] [address] | + + + | Home Phone [...] Team Providers + +------+ + | Care Brine Purifier Name | Role | Phone | + +------+ + | Kirk French MD | PCP | | + +------+ + Encounter Details +--------+ + + + + | Date | Type | Department | Care Team | Description | +--------+ + + + + | 05/28/ | Hospital | C GENERIC IP | Conversion | Pain | | 2015 | Encounter | CONVERSION DEP [address] | Transaction, | | | | | [facility] | Provider Unknown | | | | | CHRISTOPH DINH | [phone] | | | | | [address] | | | | | | [phone] | | | +--------+ + + + [...] + + + +---------+ + + | [place]-3 Fatty | CAPS, one capsule by | [...] | | | | | | | #[id number], exp 07/2016 | | | | | [...] [address] | | | | | | [place], | | | | | | [place] [address] | | | | | | [phone] | | | | | | | [...] + + | Kalpesh Brown Imani - 07/07/2019 5:05 AM PDT This is a non-reportable procedure | | without a radiologist report and isused for image storage only | + + documented in this encounter Visit Diagnoses + + | Diagnosis | + + | Pain Generalized pain | + + documented in this encounter"
--- OUTSIDE RECORDS SUMMARY | ~2020-06-15 | XMS | Encounter Summary ---
Demographics + + + | Address | [address] | | | [place] [address] | + + + | Home Phone | | + + + | Preferred Language | Unknown | + + + | Marital Status | | + + + | Pentecostal Affiliation | 1013 | + + + [...] Team Providers + +------+ + | Care Skid Machine Operator Name | Role | Phone | + +------+ + | Kirk French MD | PCP | | + +------+ + Reason for Visit +--------+--------+ + | Reason | Onset | Comments | | | Date | | +--------+--------+ + | Other | 08/30/ | test results | | | 2014 | | +--------+--------+ + Encounter Details +--------+ + + + + | Date | Type | Department | Care Team | Description | +--------+ + + + + | 08/30/ | Telephone | [facility] | Silvia, | Other (test results) | | 2014 | | CARDIOLOGY [address] | Janeen HEARING DOG TRAINER [address] | | | | | [place], | [place], | | | | | [place] [address] | [place] [address] | | | | | [phone] | [phone] | | | | | | | [...] this encounter Miscellaneous Notes Telephone Encounter - Betsy Mendez RN - 08/30/2015 10:53 AM PDTPatient notified that the Bilateral lower extremity ultrasound on 08/29/2015 showed no evidence of deep venous thr omosis in either lower extremity. Patient advised to keep using stockings and walk every da y. Patient expressed understanding of these instructions. Betsy Roy 08/30/2015 10 :54 elephone Encounter - Darlene Tirado RN - 08/30/2015 8:41 AM PDTLeft message at home number for patient to return my call. ...........................................Darlene Tirado RN on 08/30/15 a t 8:42 elephone Encounte r - Darlene Tirado RN - 08/30/2015 8:41 AM PDT----- Message from PARISA Russell se at 08/29/2015 17:41 PDT ----- Newton Colon, I tried calling him but no answer or secure voicemail. Can you please try calling patient t omorrow? Please tell him that the Bilateral lower extremity ultrasound done on 08/29/2015 showed no evidence of deep venous thrombosis in either lower extremity. So keep using stockings and walking as we talked today. Electronically signed by: PARISA Russell 08/29/2015 17:43 documented in this e ncounter Plan of [...] | | | | | | [place] [address] | | | | | | [phone] | | | | | | | | +--------+ + + + + documented as of this encounter Visit Diagnoses Not on filedocumented in this encounter"
--- OUTSIDE RECORDS SUMMARY | ~2020-06-15 | XMS | Encounter Summary ---
Demographics + + + | Address | [address] | | | [place] [address] | + + + | Home Phone [...] Team Providers + +------+ + | Care Cradle Placer Name | Role | Phone | + [...] Refill | | 2013 | | [facility]IC[facility] [place] | DO [address] | | | | | [address] | [place] | | | | | [place], [place] | [address] | | | | | [address] | | | | | | [phone] | | | +--------+--------+ + + + [...] | | | | | | [place] [address] | | | | | | [phone] | | | | | | | | +--------+ + + + + documented as of this encounter Visit Diagnoses Not on filedocumented in this encounter"
--- OUTSIDE RECORDS SUMMARY | ~2020-06-15 | XMS | Encounter Summary ---
Demographics + + + | Address | [address] | | | [place] [address] | + + + | Home Phone [...] Providers + +------+ + | Care Furniture Mover Name | Role | Phone | + +------+ + | Michael Amanda DO | PCP | | + +------+ + Reason for Visit + + + | Reason | Comments | + + + | Chest Pain | OC PVC's and Chest pain CC: Michael Amanda DO | + + + Encounter Details +--------+---------+ + + + | Date | Type | Department | Care Team | Description | +--------+---------+ + + + | 01/25/ | Office | [facility] | Daljit Singletary, | Other chest pain | | 2012 | Visit | CARDIOLOGY [address] | [address] | (Primary Dx); PVC's | | | | [place], | [place], | (premature | | | | [place] [address] | [place] [address] | ventricular | | | | [phone] | [phone] | contractions) | | | | | | | [...] + + + | Blood Pressure | 118/80 | 01/25/2013 12:57 PM | | | | | PST | | + + + + + | Pulse | 71 | 01/25/2013 12:57 PM | Irregular | | | | PST | | + + + + + | Temperature | - | - | | + + + + + | Respiratory Rate | 16 | 01/25/2013 12:57 PM | | | | | PST | | + + + + + | Oxygen Saturation | - | - | | + + + + + | Inhaled Oxygen | - | - | | | Concentration | | | | + + + + + | Weight | 117.5 kg (259 lb) | 01/25/2013 12:57 PM | | | | | PST | | + + + + + | Height | 193 cm (6' 4") | 01/25/2013 12:57 PM | | | | | PST | | + + + + + | Body Mass Index | 31.53 | 01/25/2013 12:57 PM | | | | | PST | | + + + + + documented in this encounter Progress Notes Daljit Singletary MD - 01/25/2013 1:25 PM PSTFormatting of this note might be different f rom the original. Subjective: Patient ID: Moe Sanchez is a 52 y.o. male. HPI Moe Sanchez is a 52 y.o. 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 Patient stopped by today because he felt more often palpitations. Symptom was associated wi th dizziness and lightheadedness without passing out. He as been feeling tired. Of note, lorraine painting has appointment to see performance solutions specialist for PVCs ablations consultation on January 30 3. He was informed to stop taking Toprol tomorrow. Past Medical History Diagnosis Date nuclear stress [...] 1992 L3-4 Appendectomy 2005 [place] Sinus surgery 1997 Lumbar fusion 01/2011 Pacemaker placement 06/14/09 Neck fusion 08/10/2012 [place] Family History Problem Relation Age of Onset Cancer Father colon,prostate History Social History Marital Status: Spouse Name: francisco Number of Children: 2 Years of Education: 12 Occupational History disabled Social History Main Topics Smoking status: Former Smoker Types: Cigars Quit date: 06/12/2009 Smokeless tobacco: Never Used Comment: 1 cigar twice a year for 30 (when he went fishing) Alcohol Use: No Drug Use: No Sexually Active: No to Francisco Other Topics Concern None Social History Narrative Exercise:none currently, pt states he walks when he canCaffeine:NoneLiving situation: live s at home with Francisco Current Outpatient Prescriptions Medication Sig Dispense Refill oxyCODONE 10 MG TABS Take 5-10 mg by mouth every 4 hours as needed. metoprolol succinate (TOPROL-XL) 200 MG 24 hr tablet Take 1 tablet by mouth Daily. 30 tablet 6 pravastatin (PRAVACHOL) 40 MG tablet Take 1 tablet by mouth nightly. 90 tablet 3 valACYclovir (VALTREX) 500 mg tablet Take one by mouth every 12 hours for 3 days, then once daily thereafter. aspirin 81 MG tablet Take 81 mg by mouth Daily. Ascorbic Acid (VITAMIN C) 1000 MG tablet Take 1,000 mg by mouth Daily. [place]-3 Fatty Acids (SALMON OIL-1000 PO) CAPS, one capsule by mouth daily twice daily MELATONIN TABS, at bedtime as needed promethazine (PHENERGAN) 25 mg tablet Take 25 mg by mouth every 8 hours as needed. morphine (MS CONTIN) 15 mg 12 hr tablet Take 15 mg by mouth 2 times daily. gabapentin (NEURONTIN) 600 MG tablet Take 600 [...] daily as needed. 60 t ablet 3 diphenhydrAMINE (BENADRYL) 25 MG capsule Take 25 mg by mouth as needed. Current Outpatient Prescriptions on File Prior to Visit Medication Sig Dispense Refill oxyCODONE 10 MG TABS Take 5-10 mg by mouth every 4 hours as needed. metoprolol succinate (TOPROL-XL) 200 MG 24 hr tablet Take 1 tablet by mouth Daily. 30 tablet 6 pravastatin (PRAVACHOL) 40 MG tablet Take 1 tablet by mouth nightly. 90 tablet 3 valACYclovir (VALTREX) 500 mg tablet Take one by mouth every 12 hours for 3 days, then once daily thereafter. aspirin 81 MG tablet Take 81 mg by mouth Daily. Ascorbic Acid (VITAMIN C) 1000 MG tablet Take 1,000 mg by mouth Daily. [place]-3 Fatty Acids (SALMON OIL-1000 PO) CAPS, one capsule by mouth daily twice daily MELATONIN TABS, at bedtime as needed promethazine (PHENERGAN) 25 mg tablet Take 25 mg by mouth every 8 hours as needed. morphine (MS CONTIN) 15 mg 12 hr tablet Take 15 mg by mouth 2 times daily. gabapentin (NEURONTIN) 600 MG tablet Take 600 [...] daily as needed. 60 t ablet 3 diphenhydrAMINE (BENADRYL) 25 MG capsule Take 25 mg by mouth as needed. Allergies Allergen Reactions Alcohol-Fentanyl Clarithromycin Duloxetine Hydrocodone Penicillins Tramadol Hcl Review of Systems Objective: Physical Exam Assessment: Plan: 1. Follow through with the PVCs ablation plan. 2. Followup with me in 2-3 weeks after the ablation. 3. No meds change today. documented in this encounter Plan of Treatment [...] | | | | | | [place] [address] | | | | | | [phone] | | | | | | | | +--------+ + + + + + +------+--------+ + + | Name | Type | Priori | Associated Diagnoses | Order Schedule | | | | ty | | | + +------+--------+ + + | ECG 12 lead | ECG | Routin | Other chest pain | Ordered: 01/25/2013 | | | | e | PVC's (premature | | | | | | ventricular | | | | | | contractions) | | + +------+--------+ + + documented as of this encounter Visit Diagnoses + + | Diagnosis | + + | Other chest pain - Primary | + + | PVC's (premature ventricular contractions) Other premature beats | + + documented in this encounter
--- OUTSIDE RECORDS SUMMARY | ~2020-06-15 | XMS | Encounter Summary ---
Demographics + + + | Address | [id number] [place] [address] [address] | | | [place] [address] | + + + | Home Phone | | + + + | Preferred Language | Unknown | + + + | Marital Status | | + + + | Scientologist Affiliation | Unknown | + + + | Race | White | + + + | Ethnic Group | Not or | + + + Author + + + | Author | [facility] | + + + | Organization | [facility] | + + + | Address | Unknown | + + + | Phone | Unavailable | + + + Support + + + + + | Name | Relationship | Address | Phone | + + + + + | Rachel Valencia | [address]IE[address] | [place] | | | | | [address] | | + + + + + Care Team Providers + +------+ + | Care Biosolids Management Technician Name | Role | Phone | + +------+ + | Darion Holden DO | PCP | | + +------+ + Encounter Details +--------+ + + + + | Date | Type | Department | Care Team | Description | +--------+ + + + + | 10/23/ | Telephone | [facility] | Bridgette Rios, | | | 2019 | | [facility] | MD [address] | | | | | [address] [place] | [place], [place] | | | | | for Health and | [address] | | | | | Healing, [address] | [phone] | | | | | [place], [place] | | | | | | [address] | | | | | | [phone] | | | +--------+ + + + [...]
--- OUTSIDE RECORDS SUMMARY | ~2020-06-15 | XMS | Encounter Summary ---
Demographics + + + | Address | [address] | | | [place] [address] | + + + | Home Phone | | + + + | Preferred Language | Unknown | + + + | Marital Status | | + + + | Anglican Affiliation | 1013 | + + + [...] Team Providers + +------+ + | Care Cyber Software Engineer Name | Role | Phone | + +------+ + | Kirk French MD | PCP | | + +------+ + Encounter Details +--------+ + + + + | Date | Type | Department | Care Team | Description | +--------+ + + + + | 12/02/ | Episode | [facility] | Kaylynn Copeland | | | 2018 | Changes | GASTROENTEROLOGY | M, RN | | | | | [address] [place] | | | | | | [address] [place], [place] | | | | | | [address] | | | | | | [phone] | | | +--------+ + + + [...] [place], | | | | | | [place] [address] | | | | | | [phone] | | | | | | | | +--------+ + + + + documented as of this encounter Visit Diagnoses Not on filedocumented in this encounter"
--- OUTSIDE RECORDS SUMMARY | ~2020-06-15 | XMS | Encounter Summary ---
Demographics + + + | Address | [address] | | | [place] [address] | + + + | Home Phone | | + + + | Preferred Language | Unknown | + + + | Marital Status | | + + + | Sabianist Affiliation | 1013 | + + + | Race | Unknown | + + + | Ethnic Group | Unknown | + + + Author + + + | Author | [facility] | | | and [place] | + + + | Organization | [facility] | | | [...] Team Providers + +------+ + | Care Level Vial Sealer Name | Role | Phone | + +------+ + | Michael Amanda DO | PCP | | + +------+ + Reason for Visit +---------+--------+ + | Reason | Onset | Comments | | | Date | | +---------+--------+ + | Results | 07/30/ | | | | 2013 | | +---------+--------+ + Encounter Details +--------+ + + + + | Date | Type | Department | Care Team | Description | +--------+ + + + + | 07/30/ | Telephone | [facility] [place] [facility] | Michael Amanda, | Results | | 2013 | | [facility] [place] | DO [address] | | | | | [address] | [place], [place] | | | | | [place], [place] | [address] | | | | | [address] | | | | | | [phone] | | | +--------+ + + + [...] encounter Miscellaneous Notes Telephone Encounter - Betsy Bernardo RN - 08/02/2014 10:03 AM PDTSent letter to jovon fontenot to inform him of lab results. elephone Encounter - Betsy Bernardo RN - 07/31/2014 1:49 PM PDTCalled an d left message for patient to call back. Good cholesterol. Normal CMP except for glucose in prediabetic range- decrease carbs in t. Normal PSA. Normal TSH. Normal CBC. elephone Encounte r - Betsy Bernardo RN - 07/30/2014 1:33 PM PDTCalled and left message for patient to c all back to discuss lab results. Good cholesterol. Normal CMP except for glucose in prediabetic range- decrease carbs in t. Normal PSA. Normal TSH. Normal CBC. documented in this encounter Plan of Treatment [...] | | | | | | [place] [address] | | | | | | [phone] | | | | | | | | +--------+ + + + + documented as of this encounter Visit Diagnoses Not on filedocumented in this encounter"
--- OUTSIDE RECORDS SUMMARY | ~2020-06-15 | XMS | Encounter Summary ---
Demographics + + + | Address | [address] | | | [place] [address] | + + + | Home Phone [...] Team Providers + +------+ + | Care Yield Analyst Name | Role | Phone | + +------+ + | Kirk French MD | PCP | | + +------+ + Encounter Details +--------+ + + + + | Date | Type | Department | Care Team | Description | +--------+ + + + + | 05/04/ | Documentati | [facility] [place] | Emmanuel Daniel MD | | | 2019 | on | GASTROENTEROLOGY | [address], [place] | | | | | [address] [place] | [address] [place], [place] | | | | | [address] [place], [place] | [address] | | | | | [address] | | | | | | [phone] | | | +--------+ + + + [...] | | | | | | [place] [address] | | | | | | [phone] | | | | | | | | +--------+ + + + + documented as of this encounter Visit Diagnoses Not on filedocumented in this encounter"
--- OUTSIDE RECORDS SUMMARY | ~2020-06-15 | XMS | Encounter Summary ---
Demographics + + + | Address | [address] | | | [place] [address] | + + + | Home Phone [...] Team Providers + +------+ + | Care Printing Machine Operator Name | Role | Phone [...] 2019 | | GASTROENTEROLOGY | [address], [place] | | | | | [address] [place] | [address] [place], [place] | | | | | [address] [place], [place] | [address] | | | | | [address] | | | | | | [phone] | | | +--------+--------+ + + + [...] | | | | | | [place] [address] | | | | | | [phone] | | | | | | | | +--------+ + + + + documented as of this encounter Visit Diagnoses Not on filedocumented in this encounter"
--- OUTSIDE RECORDS SUMMARY | ~2020-06-15 | XMS | Encounter Summary ---
Demographics + + + | Address | [address] | | | [place] [address] | + + + | Home Phone | | + + + | Preferred Language | Unknown | + + + | Marital Status | | + + + | Buddhism Affiliation | 1013 | + + + | Race | Unknown | + + + | Ethnic Group | Unknown | + + + Author + + + | Author | [facility] | | | and [place] | + + + | Organization | [facility] | | | [...] Providers + +------+ + | Care Janitorial Maintenance Worker Name | Role | Phone | + +------+ + PCP | Unavailable | + +------+ + Encounter Details +--------+ + + + + | Date | Type | Department | Care Team | Description | +--------+ + + + + | 01/20/ | [facility] | [facility] | Geri Angel, | | | 2009 | Encounter | MED CTR GENERIC OP | SENIOR SALES ADMINISTRATOR [address] | | | | | CONV DEPT [address] | [place] | | | | | [place], | [address] | | | | | [place] [address] | | | | | | [phone] | | | +--------+ + + + [...] [place], | | | | | | [place] [address] | | | | | | [phone] | | | | | | | | +--------+ + + + + documented as of this encounter Visit Diagnoses Not on filedocumented in this encounter"
--- OUTSIDE RECORDS SUMMARY | ~2020-06-15 | XMS | Encounter Summary ---
Demographics + + + | Address | [address] | | | [place] [address] | + + + | Home Phone [...] Providers + +------+ + | Care District Attorney Name | Role | Phone | + +------+ + | Kirk French MD | PCP | | + +------+ + Reason for Visit + +--------+ + | Reason | Onset | Comments | | | Date | | + +--------+ + | Case Management | 04/11/ | referral from [facility] | | | 2019 | | + +--------+ + Encounter Details +--------+ + + + + | Date | Type | Department | Care Team | Description | +--------+ + + + + | 04/11/ | Telephone | [facility] | An Wang, | Case Management | | 2019 | | MED CTR CASE | RN | (referral from [facility]) | | | | MANAGEMENT [address] | | | | | | [place], | | | | | | [place] [address] | | | | | | [phone] | | | +--------+ + + + [...] this encounter Miscellaneous Notes Telephone Encounter - An Wang, [place] - 04/11/2019 3:01 PM PDTOutpatient Case Managem ent: Referral from [facility] This gentleman is scheduled for an outpatient procedure with Dr. Uriarte 04/13. He is having a challenge arranging for acceptable transportation home and reached out to Shyanne albrecht. Our understanding is that the patient has a car to get here with, but knows he will not be able to drive home after the procedure. He has a friend that can accompany him, but this friend does not drive. They were inquiring about staying the night locally, but it sounds like $$ is a barrier. We wondered if there were any public or state transportation options we could suggest to an d from [place]. Can you look into this and suggest any transportation options? I was not able to talk to Amilcar. I talked to his support person Geraldine Espino (she will be with Amilcar for this procedure.. Two options: Free transportation service via [facility] [place] [facility]: [phone]. They have transportat ion times available that would accommodate Amilcar's procedure. [facility] two [facility] available for Amilcar and Geraldine to stay t he night at [facility]. This would allow Amilcar to drive up for the procedure, stay the night and drive back home the next day. Anatoliy has waived the fee. Geraldine will talk to Amilcar and get back to me in the morning about which option they will use. Electronically signed by: An Wang RN 04/11/2019 15:07 documented in this encounter Plan of Treatment [...] [place], | | | | | | [place] [address] | | | | | | [phone] | | | | | | | | +--------+ + + + + documented as of this encounter Visit Diagnoses Not on filedocumented in this encounter"
--- OUTSIDE RECORDS SUMMARY | ~2020-06-15 | XMS | Encounter Summary ---
Demographics + + + | Address | [address] | | | [place] [address] | + + + | Home Phone [...] Team Providers + +------+ + | Care Teacher Adventure Education Name | Role | Phone | [...] [facility] | | | | | Ascending | [place], | [address] | | | | | aortic | [place] | [place], | | | | | aneurysm | [address] | [place] | | | | | ([facility]) | [place] | [address] | | | | | Procedures | [place], | Phone: | | | | | ECHO | [place] | [phone] | | | | | Complete | [address] | Fax: | | | | | | Phone: | [phone] | | | | | | [phone] | | | | | | | Fax: | | | | | | | [phone] | | +--------+--------+ + + + + Reason for Visit + + + | Reason | Comments | + + + | Follow-up | | + + + | Coronary Artery | | | Disease | | + + + | Tachycardia | | + + + Follow Up (Routine) + +--------+ + + + + | Status | Reason | Specialty | Diagnoses / | Referred By | Referred To | | | | | Procedures | Contact | Contact | + +--------+ + + + + | Authorized | | Cardiology | Diagnoses | [place], | [facility] | | | | | Essential | Kirk Guidry, | Cardiology | | | | | (primary) | MD [address] | [address] | | | | | hypertension | [address] | [place], | | | | | Sick sinus | [address] | [place] | | | | | syndrome | [place] | [address] | | | | | (HCC) | [address] | Phone: | | | | | Ventricular | Phone: | [phone] | | | | | premature | [phone] | Fax: | | | | | depolarizati | Fax: | [phone] | | | | | on | [phone] | | | | | | Tachycardia, | | | | | | | unspecified | | | | | | | | | | | | | | Atherosclero | | | | | | | tic heart | | | | | | | disease of | | | | | | | alturas | | | | | | | coronary | | | | | | | artery | | | | | | | without | | | | | | | angina | | | | | | | pectoris | | | | | | | Syncope and | | | | | | | collapse | | | | | | | Thoracic | | | | | | | aortic | | | | | | | aneurysm, | | | | | | | without | | | | | | | rupture | | | | | | | (HCC) Mixed | | | | | | | | | | | | | | hyperlipidem | | | | | | | ia | | | | | | | Procedures | | | | | | | FOLLOW UP | | | + +--------+ + + + + Encounter Details +--------+---------+ + + + | Date | Type | Department | Care Team | Description | +--------+---------+ + + + | 01/01/ | Office | [facility] | [place], | Ascending thoracic | | 2020 | Visit | CARDIOLOGY [address] | [place] [address] | aortic aneurysm | | | | [place], | [place], | (HCC) (Primary Dx); | | | | [place] [address] | [place] [address] | Coronary artery | | | | [phone] | [phone] | disease involving | | | | | | alturas coronary | | | | | | artery of alturas | | | | | | heart without angina | | | | | | pectoris; Essential | | | | | | hypertension; | | | | | | Sinoatrial node | | | | | | dysfunction (HCC) | | | | | | with symptomatic | | | | | | bradycardia; | | | | | | Symptomatic PVCs; | | | | | | Tachycardia; | | | | | | Hyperlipidemia, [...] + + + | Blood Pressure | 110/80 | 01/01/2020 7:35 AM | | | | | PST | | + + + + + | Pulse | 60 | 01/01/2020 7:35 AM | | | | | PST | | + + + + + | Temperature | - | - | | + + + + + | Respiratory Rate | 16 | 01/01/2020 7:35 AM | | | | | PST | | + + + + + | Oxygen Saturation | - | - | | + + + + + | Inhaled Oxygen | - | - | | | Concentration | | | | + + + + + | Weight | 120.4 kg (265 lb 6.9 | 01/01/2020 7:35 AM | | | | oz) | PST | | + + + + + | Height | 193 cm (6' 4") | 01/01/2020 7:35 AM | | | | | PST | | + + + + + | Body Mass Index | 32.31 | 01/01/2020 7:35 AM | | | | | PST [...] of this encounter Patient Instructions Patient Instructions Vidhi Gillespie, Highway Research Engineer - 01/01/2020 7:30 AM PST1. Esau delmie with current effective medical regiment. 2. He is recommend a therapeutic lifestyle change including moderate aerobic activity at le ast 150 minutes per week, with strengthening and stretching exercises at least twice per wee k, and healthful dietary choices following the principles of the mediterranean or plant-base d diet. 3. He will follow up in 3 months for office visit and device interrogation, or sooner with concerns. documented in this encounter Progress Notes Janeen Vega ARNP - 01/01/2020 7:30 AM PSTFormatting of this note might be differen t from the original. PATIENT NAME: Moe Sanchez : 1960: AGE: 59 y.o. PRIMARY CARE: Kirk French MD OUTPATIENT FOLLOW UP VISIT Date of Service: 01/01/2020 HISTORY OF PRESENT ILLNESS: Moe Sanchez is a 59 y.o. male with a history of critical coronary artery disea se involving alturas coronary artery of alturas heart without angina pectoris, essential hyper tension, symptomatic bradycardia status post [employer] dual-chamber permanent pacemaker impl antation 06/14/09, frequent premature ventricular contractions status post ablation spring, and bipolar disorder with anxiety. He is being seen today for follow up. He was last seen 06/06/2019 at which time he was to increase Atorvastatin to 40 mg once mei y by mouth HS Preoperative cardiac risk assessment for shoulder surgery: His Revised Cardiac Risk Index ( RCRI) is calculated showing a elevated risk with estimated 6.0% risk of MACE. His Arnett Acti vity Status Index (DASI) score is calculated and shows he has a functional capacity of 8.97 METS. He is on a beta edvin. He does not require any further testing or medication adjus tments. Prior to proceeding with surgery, the risk and benefit of the procedure need to be discussed between patient and surgeon. He was to increase Metoprolol succinate to 150 mg on ce daily by mouth and to continue taking nitro SL with chest pain. He will follow up in 6 to 8 weeks for office visit, or sooner with concerns. Since that time, he was seen by PCP on 09/26/2019 for weight loss, he was defer to [facility], per [facility] to have some sort of a patient assistance program that they could go with, he was recom mend FODMAPs and a low residual diet. No medication changes. He has had a poor energy level. He has not been very active due to getting sick. He enjoy s taking care of his animals, going to the mountains and fishing in his spare time. He has had chest discomfort with episodes of anxiety He has not noticed shortness of breath. He has lightheadedness with when standing to fast. He has noted palpitations with episodes of anxiety He has not had leg swelling. He sleeps on 1 pillow at night without any shortness of breath. States not using a CPAP no longer. He states he wakes up most of the time feelin g tired, with an average of 1-3 hours of sleep per night and takes short naps during the day . He arrives alone and states he is still having palpitation and chest pain episodes and rel ates it to his anxiety. MEDICAL, SURGICAL, AND PERSONAL HISTORY Past Medical, [...] Preventative health care Coronary artery disease involving alturas coronary artery of alturas heart without angina pectoris Cannabis abuse, daily use Ascending thoracic aortic aneurysm Pacemaker reprogramming/check DO NOT DELETE Anxiety about health Diarrhea Weight loss Beta Blockers - Daily Use Depression with anxiety H/O Lumbar Fusion - "6 levels" per pt Cannabis abuse Blood glucose elevated Decreased potassium in the blood Neuralgia Abnormal serum level of lipase Irritable bowel syndrome Obesity Left ureteral calculus Chronic narcotic use CURRENT MEDICATIONS Current Outpatient Medications Medication Sig Dispense Refill acyclovir (ZOVIRAX) 5% ointment Apply topically. amLODIPine (NORVASC) 5 mg tablet Take 1 tablet by mouth Daily. 90 tablet 3 Ascorbic Acid (VITAMIN C) 1000 MG tablet Take 1,000 mg by mouth Daily. aspirin 81 MG EC tablet Take 81 mg by mouth Daily. aspirin 81 MG tablet Take 81 mg by mouth Daily. atorvaSTATin (LIPITOR) 40 mg tablet Take 1 tablet by mouth nightly. 30 tablet 5 Cinnamon Bark POWD Take by mouth. clonazePAM (KLONOPIN) 1 mg tablet Take 1 tablet by mouth 3 times daily as needed for An xiety. 90 tablet 0 CYANOCOBALAMIN PO Take by mouth. cyclobenzaprine (FLEXERIL) 10 mg tablet dicyclomine (BENTYL) 20 MG tablet Take 1 tablet by mouth 3 times daily as needed. Befor e meals 270 tablet 3 diphenhydrAMINE (BENADRYL) 25 MG capsule Take 25 mg by mouth as needed. diphenoxylate-atropine (LOMOTIL) 2.5-0.025 mg per tablet TAKE ONE TABLET BY MOUTH FOUR TIMES A DAY NEEDED FOR DIARRHEA. 120 tablet 5 ELDERBERRY PO Take by mouth. Glucose Blood (BLOOD GLUCOSE TEST STRIPS) STRP Test up to 1 times a day as needed ( One touch ) HYDROmorphone (DILAUDID) 4 MG tablet Take 1 tablet by mouth every 4 hours. 0 hyoscyamine (LEVSIN) 0.[address] 1 TABLET UNDER THE TONGUE EVERY 4 HOURS A S NEEDED FOR CRAMPING, DIARRHEA, GI SPASMS 60 tablet 1 Methylsulfonylmethane 1000 MG TABS Take 1,000 mg by mouth. metoprolol succinate (TOPROL-XL) 100 mg ER tablet Take 1.5 tablets by mouth Daily. 45 t ablet 5 Misc Natural Products (OSTEO BI-FLEX/5-LOXIN ADVANCED PO) Take by mouth. Takes 2 table ts in the morning and 2 tablets at night Multiple Vitamins-Minerals (CENTRUM SILVER PO) Take 1 tablet by mouth Daily. nitroglycerin (NITROSTAT) 0.[address] ONE TABLET UNDER THE TONGUE EVERY 5 W[place] NUTES NEEDED FOR CHEST PAIN 250 tablet 0 nortriptyline (PAMELOR) 25 mg capsule Take 25 mg by mouth. Hartsel-3 Fatty Acids (SALMON OIL-1000 PO) CAPS, one capsule by mouth daily twice daily ondansetron (ZOFRAN ODT) 4 mg disintegrating tablet Take 4 mg by mouth every 8 hours as needed for Nausea. ondansetron (ZOFRAN) 4 mg tablet Take 4 mg by mouth. ONE TOUCH DELICA LANCETS [facility] Check glucose as needed for hypoglycemia 100 each 3 promethazine (PHENERGAN) 12.5 MG tablet PYRIDOXINE HCL PO Take by mouth. rOPINIrole (REQUIP) 1 mg tablet Take 1 tablet by mouth nightly. 0 sertraline (ZOLOFT) 100 mg tablet Take 200 mg by mouth. UNABLE TO FIND Take 1 tablet by mouth Daily. MARINE-D3 UNCODED MEDICATION Diagnosis: Obstructive Sleep Apnea ICD-9: 327.23 Length of Need: 99 Months 1 Device 0 valACYclovir (VALTREX) 1 g tablet TAKE ONE TABLET BY MOUTH TWICE A DAY 180 tablet 0 No current facility-administered medications for this visit. [...] of breath. Cardiovascular: Positive for chest pain (relates it to anxiety) and palpitations (he had an episode last week when he got anxiety). Negative for leg swelling. Neurological: Positive for dizziness (when he gets up to fast). Negative for weakness. Lightheadedness = yes, when getting up to fast OBJECTIVE: PHYSICAL EXAM BP 110/80 | Pulse 60 | Resp 16 | Ht 1.93 m (6' 4") | Wt 120.4 kg (265 lb 6.9 oz) | BMI 32.31 kg/m Physical Exam Constitutional: He is oriented [...] Carotid pulses are 2+ on the right side and 2+ on the left side. Radial pulses are 2+ on the right side and 2+ on the left side. Posterior tibial pulses are 2+ on the right side and 2+ on the left side. Pulmonary/Chest: Effort normal. No accessory muscle usage. No respiratory distress. He has no decreased breath sounds. He has wheezes (scatter wheezes). He has no rhonchi. He has no r ales. Abdominal: Soft. Normal appearance, normal aorta and bowel sounds are normal. He exhibits n o abdominal bruit and no pulsatile midline mass. There is no hepatosplenomegaly. There is no abdominal tenderness. Musculoskeletal: Normal range of motion. General: No edema (No leg swelling). Neurological: He is [...] orders placed or performed in visit on 06/06/19 ECG 12 lead Result Value Ref Range INTERPRETATION TEXT Atrial-paced rhythm Abnormal ECG When compared with ECG of 02-JUN-2019 18:57, No significant change was found Confirmed by SYDNI SINGLETARY MD ([id number]) on 06/06/2019 3:43:10 PM LAB RESULTS reviewed during visit today primarily from [facility]: LIPID Lab Results Component Value Date CHOL 152 10/18/2017 TRIG 63 10/18/2017 HDL 63 10/18/2017 LDL 76 10/18/2017 CHOLHDL 3.4 06/22/2016 LDLEX 76 10/18/2017 HDLEX [...] 0.92 06/02/2019 BUN 15 06/02/2019 EGFR >60 11/25/2018 EGFREX >60 04/11/2018 CREEX 1.1 04/11/2018 HEMATOLOGY Lab Results Component Value Date WBC 6.3 06/02/2019 WBCEX 8.44 04/11/2018 HGB 16.3 06/02/2019 HGBEX 15.6 04/11/2018 HCT 46.4 06/02/2019 HCTEX 45.5 04/11/2018 PLT 169 06/02/2019 PLTEX 157 04/11/2018 Lab Results Component Value Date TSH 1.07 12/31/2016 TSHEX 1.15 05/12/2016 BNP 48 06/02/2019 I reviewed records from [facility] for office visit on 06/06/2019 wh ich is summarized in the HPI. RESULTS- I reviewed reports from [facility]: No results found. Above data and testing is reviewed this visit; testing below is historical data unless othe rwise specified. ASSESSMENT: 1. Non-critical Coronary artery disease involving alturas coronary artery of alturas heart wi thout angina pectoris: A.Normal exercise sestamibi stress test [...] cannot completely be ru led out. D. C 12/25/13, shows non critical [...] successful hemostasis with a TR hemostatic band, MD Shawn Miles.Today, 01/01/2020, he is asymptomatic, no chest discomfort at visi t. He states he had chest pain and palpitation episodes that he relates it to his anxiety. H aster is on a medical regimen with aspirin, ARB, beta-edvin and statin. There are no signs or symptoms of overt congestive heart failure, and his physical exam shows no significant fluid retention. He is in class I- No symptoms; no limitations of activities of the [employer] functional class. Heart failure stage A-pre-heart failure. He states not been active except for walking sometimes. 2. Symptomatic PVC's status post ablation: A. [...] performed by Dr Juan Diego Gambino at [facility] on 01/30/2013.Patient had spontaneous PVC'sfr om 3 [...] to go back in 3 days to [place] for an attempt of ablation under general [...] PVC'swere noted, by Sydni Singletary MD. F. Patient is needing MRI of his back and shoulder. He has a non-MRI comp atible device. He has been advised to having his MRI done in [place] [facility] [place] which has a repeat MRI protocol for such situations. Patient also will need echocardiogram for pa s next appointment to evaluate his ascending aorta 3. Essential hypertension with goal blood pressure less than 130/80: A. Today, 01/01/2020, his blood pressure is well controlled. 4. Ascending thoracic aorta aneurysm: A. CTA [...] Device was not checked in office today. E.Today, 06/06/2019, he note palpitations are not completely contr olled and would benefit from having medication adjustment. 6. Lightheadedness and dizziness/ presyncope: A. [facility] thought to have vasovagal symptoms. B.Today, 01/01/2020, he relates it to standing to quick. 7. History of cigarette smoking: A. Today, 01/01/2020, he states had completely quit. 8. Bipolar disease with anxiety/depression: A. He is using clonazepam as needed. B. 01/11/2019, he will see his PCP and see about his medication. C. Today, 01/01/2020, he states he is not currently taking anxiety medications. PLAN: 1. Continue with current effective medical regiment. 2. He is recommend a therapeutic lifestyle change including moderate aerobic activity at le ast 150 minutes per week, with strengthening and stretching exercises at least twice per wee k, and healthful dietary choices following the principles of the mediterranean or plant-base d diet. 3. He will follow up in 3 months for office visit and device interrogation, or sooner with concerns. 4. Patient is needing MRI of his back and shoulder. He has a non-MRI compatible device. Haleigh rdoarte has been advised to having his MRI done in [place] at [place] which has a repeat MRI protocol for such situations. Patient also will need echocardiogram for his next appointmen t to evaluate his ascending aorta Vidhi Clemente, Highway Research Engineer am acting as a scribe on behalf of, and in the prese nce of [place]ISA [place]. - Vidhi Gillespie, Highway Research Engineer 01/01/2020 5:29 PM Janeen Clemente ARNP, personally performed the services described in this documentati on, as scribed in my presence and it is both accurate and complete. -[place]ISA [place] 01/01/2020 Portions of this chart may have been created with [employer] voice recognition software. Occasi onal wrong-word or [...] [address] | | | | | | [place], | | | | | | [place] [address] | | | | | | [phone] | | | | | | | | +--------+ + + + + documented as of this encounter Results ECHO Complete (05/01/2020 9:14 AM PDT) + +--------+ + + + | Component | Value | Ref Range | Performed | Pathologist | | | | | At | Signature | + +--------+ + + + | Inferior | 0.82 | cm | [facility] | | | V[facility] Cava | | | | | | Diameter at | | | | | | | | | | | | Inspiration | | | | | + +--------+ + + + | Inferior | 1.81 | cm | [facility] | | | [facility] | | | | | | Diameter at | | | | | | Expiration | | | | | + +--------+ + + + | LVIDd | 5.42 | cm | [facility] | | + +--------+ + + + | FS | 43 | % | [facility] | | + +--------+ + + + | LA volume | 84.34 | mL | [facility] | | + +--------+ + + + | Ascending | 4.46 | cm | [facility] | | | aorta | | | | | + +--------+ + + + | Aortic arch | 3.36 | cm | [facility] | | + +--------+ + + + | MV Area by | 3.94 | cm2 | [facility] | | | P 1/2 | | | | | | method | | | | | + +--------+ + + + | LVOT | 2.15 | cm | [facility] | | | diameter | | | | | + +--------+ + + + | LVOT peak | 104.13 | cm/s | [facility] | | | emy | | | | | + +--------+ + + + | AV peak emy | 146 | cm/s | [facility] | | + +--------+ + + + | AV peak | 8.53 | mmHg | [facility] | | | gradient | | | | | + +--------+ + + + | MV Pressure | 55.89 | msec | [facility] | | | 1/2 time | | | | | + +--------+ + + + | LA Volume | 34 | mL/m2 | [facility] | | | Index | | | | | + +--------+ + + + | AV LVOT | 4.34 | mmHg | [facility] | | | Peak | | | | | | Gradient | | | | | + +--------+ + + + | TR Peak | 24 | mmHg | [facility] | | | Gradient | | | | | + +--------+ + + + | RV Free | 11 | cm/s | [facility] | | | Wall Peak | | | | | | S' | | | | | + +--------+ + + + | TR Velocity | 246.89 | cm/s | [facility] | | + +--------+ + + + | LV | 8.69 | cm | [facility] | | | Diastolic | | | | | | Length 4C | | | | | + +--------+ + + + | LV Systolic | 18.04 | cm2 | [facility] | | | Area PSAX | | | | | + +--------+ + + + | RV | 3.97 | cm | [facility] | | | Diastolic | | | | | | Basal | | | | | | Diameter | | | | | + +--------+ + + + | LV | 81 | % | [facility] | | | Walker's | | | | | | Biplane EF | | | | | + +--------+ + + + | LV ED | 93.4 | ml | [facility] | | | Volume | | | | | | (Walker's) | | | | | + +--------+ + + + | LV ED | 37 | ml/m2 | [facility] | | | Volume | | | | | | Index | | | | | + +--------+ + + + | LV ES | 34.88 | ml | [facility] | | | Volume | | | | | + +--------+ + + + | MV E' | 9.48 | cm/s | [facility] | | | Lateral | | | | | | Velocity | | | | | + +--------+ + + + | MV E' | 7.33 | cm/s | [facility] | | | Septal | | | | | | Velocity | | | | | + +--------+ + + + | MV | 423.65 | cm/s2 | [facility] | | | Deceleratio | | | | | | n [place]ward | | | | | + +--------+ + + + | MV | 192.72 | msec | [facility] | | | Deceleratio | | | | | | n Time | | | | | + +--------+ + + + | MV E/A | 1.46 | | [facility] | | | Ratio | | | | | + +--------+ + + + | MV Peak | 55.73 | cm/s | [facility] | | | A-Wave | | | | | + +--------+ + + + | MV Peak | 81.16 | cm/s | [facility] | | | E-Wave | | | | | + +--------+ + + + | RA Area | 18 | cm2 | [facility] | | + +--------+ + + + | LA/Aorta | 1.11 | | [facility] | | | Ratio | | | | | + +--------+ + + + | LA Area | 24.5 | cm2 | [facility] | | + +--------+ + + + | LA Systolic | 12.7 | mmHg | [facility] | | | Pressure | | | | | + +--------+ + + + | MV E/E | 11.07 | | [facility] | | | SEPTAL | | | | | + +--------+ + + + | MV E/E | 8.56 | | [facility] | | | LATERAL | | | | | + +--------+ + + + | LV ES | 14 | ml/m2 | [facility] | | | Volume | | | | | | Index | | | | | + +--------+ + + + | LV Area | 34.38 | cm2 | [facility] | | | Diastolic | | | | | + +--------+ + + + | Vitals | 76 | | [facility] | | | Heart Rate | | | | | | Rest | | | | | + +--------+ + + + | Vitals | 193.0 | | [facility] | | | Height | | | | | + +--------+ + + + | Vitals | 121.20 | | [facility] | | | Weight | | | | | + +--------+ + + + | Vitals BSA | 2.51 | | [facility] | | + +--------+ + + + | Vitals BMI | 121.20 | | [facility] | | + +--------+ + + + | Aortic Root | 3.77 | cm | [facility] | | | Diameter | | | | | + +--------+ + + + | IVS | 1.14 | cm | [facility] | | | Diastolic | | | | | | Thickness | | | | | | MM | | | | | + +--------+ + + + | LVPW | 1.2 | cm | [facility] | | | Diastolic | | | | | | Thickness | | | | | | MM | | | | | + +--------+ + + + | IVS | 1.46 | cm | [facility] | | | Systolic | | | | | | Thickness | | | | | | MM | | | | | + +--------+ + + + | LV Systolic | 3.09 | cm | [facility] | | | Diameter | | | | | | MM | | | | | + +--------+ + + + | LVPW | 1.59 | cm | [facility] | | | Systolic | | | | | | Thickness | | | | | | MM | | | | | + +--------+ + + + | LA Systolic | 4.18 | cm | [facility] | | | Diameter | | | | | | MM | | | | | + +--------+ + + + | TAPSE | 1.6 | cm | [facility] | | + +--------+ + + + | LVEF-TTE | 60 | % | [facility] | | | TRANSTHORAC | | | | | | IC ECHO | | | | | + +--------+ + + + | RA PRESSURE | 3 | mmHg | [facility] | | + +--------+ + + + | RVSP | 27 | mmHg | [facility] | | | Estimated | | | | | + +--------+ + + + + + | Specimen | + + | | + + + + -+ | Narrative | Performed At | + + -+ | 1. Normal | [facility] | | left ventricular size with a mild concentric left ventricular | | | hypertrophy. Left ventricular systolic function is preserved. LVEF | | | is 60 to 65%.2. Grade 2/pseudonormalization left ventricular | | | diastolic dysfunction.3. Mildly thickened mitral valve with trace | | | mitral valve regurgitation.4. Trace aortic valve insufficiency.5. | | | Mild tricuspid valve regurgitation.6. Mild ascending aorta | | | dilatation measuring 4.5 cm in diameter.7. Normal right-sided | | | pressure.8. Normal IVC with a normal respiratory collapse.9. When | | | compared to echocardiogram on 11/16/2017, no significant changes. | | |9. When compared to echocardiogram on 11/16/2017, no significant changes. | | + + -+ + +---------+ [...] + + | Coronary artery disease involving alturas coronary artery of alturas heart without | | angina pectoris | + + | Essential hypertension Unspecified essential hypertension | + + | Sinoatrial node dysfunction (HCC) with symptomatic bradycardia Sinoatrial node | | dysfunction | + + | Symptomatic PVCs Other premature beats | + + | Tachycardia Tachycardia, unspecified | + + | Hyperlipidemia, mixed Mixed hyperlipidemia | + + documented in this encounter
--- OUTSIDE RECORDS SUMMARY | ~2020-06-15 | XMS | Encounter Summary ---
Demographics + + + | Address | [address] | | | [place] [address] | + + + | Home Phone | | + + + | Preferred Language | Unknown | + + + | Marital Status | | + + + | Confucianism Affiliation | [id number] | + + + [...] Team Providers + +------+ + | Care Night Manager Name | Role | Phone | [...] + + | 09/13/ | Office | [facility] | Bahman Gant MD | Other dysphagia | | 2013 | Visit | OTOLARYNGOLOGY [address] | [address] | (Primary Dx) | | | | [address] | [address] [place] | | | | | [place], [place] | [place] [address] | | | | | [address] | [phone] | | | | | [phone] | | | +--------+---------+ + + + [...] MD - 09/13/2013 5:46 PM PDTSee dictation #[id number] signed by Joseph Gant MD at 09/13/2013 5:52 PM Bahman Lamb MD - 09/13/2013 12:00 AM PDT [facility] [address] [place] [address] FAX: [phone] OFFICE VISIT The patient gives a history [...] the use of Prilosec. Bahman Gant MD / MS JOB #: [id number] signed by Bahman Gant MD at 09/14/2013 [...] [address] | | | | | | [place], | | | | | | [place] [address] | | | | | | [phone] | | | | | | | [...]
--- OUTSIDE RECORDS SUMMARY | ~2020-06-15 | XMS | Encounter Summary ---
Demographics + + + | Address | [address] | | | [place] [address] | + + + | Home Phone [...] Team Providers + +------+ + | Care Process Checker Name | Role | Phone | + +------+ + | Kirk French MD | PCP | | + +------+ + Reason for Visit + + + | Reason | Comments | + + + | Shortness of Breath | | + + + | Chest Pain | | + + + Auth/Cert +--------+--------+ + + + + | Status | Reason | Specialty | Diagnoses / | Referred By | Referred To | | | | | Procedures | Contact | Contact | +--------+--------+ + + + + | Closed | | | Diagnoses | | [facility] | | | | | Dyspnea on | | [address] | | | | exertion | | [place] | | | | | Chest pain | | [place], [place] | | | | | on exertion | | [address] | | | | | | | Phone: | | | | | | | [phone] | | | | | | | Fax: | | | | | | | [phone] | +--------+--------+ + + + + Encounter Details +--------+ + + + + | Date | Type | Department | Care Team | Description | +--------+ + + + + | 04/27/ | [facility] | [facility] | Martell Hart | Chest pain on | | 2014 - | | [facility] | Sanjay Palacios MD | exertion (Primary | | | | [address] [place] | [address] | Dx); Dyspnea on | | 03/20/ | | [place] [address] | [place], [place] | exertion; Essential | | 2014 | | [phone] | [id number] | hypertension; Acute | | | | | | chest pain; | | | | | Parth Kraft, | Dizziness, | | | | | [address] | nonspecific; Mixed | | | | | [place], [place] | anxiety depressive | | | | | [address] | disorder; PUD | | | | | [phone] | (peptic ulcer | | | | | | disease); Tobacco | | | | | | user | +--------+ + + + + Social [...] + + + | Blood Pressure | 144/90 | 03/20/2015 7:48 AM | | | | | PDT | | + + + + + | Pulse | 73 | 03/20/2015 7:48 AM | | | | | PDT | | + + + + + | Temperature | 36.8 C (98.2 F) | 03/20/2015 7:48 AM | | | | | PDT | | + + + + + | Respiratory Rate | 20 | 03/20/2015 7:48 AM | | | | | PDT | | + + + + + | Oxygen Saturation | 94% | 03/20/2015 7:48 AM | | | | | PDT | | + + + + + | Inhaled Oxygen | - | - | | | Concentration | | | | + + + + + | Weight | 107.5 kg (236 lb | 03/18/2015 9:20 PM | | | | 15.9 oz) | PDT | | + + + + + | Height | 190.5 cm (6' 3") | 03/18/2015 9:20 PM | | | | | PDT | | + + + + + | Body Mass Index | 29.62 | 03/18/2015 9:20 PM | | | | | PDT [...] documented as of this encounter Discharge Summaries Thierry Fregoso DO - 03/20/2015 11:22 AM PDTFormatting of this note might be different f rom the original. [facility] DISCHARGE SUMMARY Pt. Name/Age/: Moe Sanchez 55 y.o. 1960 Date of Admission: 03/18/2015 Date of Discharge: 03/20/2015 Admitting Physician: Parth Kraft MD Primary Care Provider: Kirk French Discharging Physician: Thierry Fregoso DO DISCHARGE DIAGNOSES: Active Hospital Problems Diagnosis Chest pain. No ACS. PUD Tobacco user Hypertension Mixed anxiety depressive disorder Resolved Hospital Problems Diagnosis Dizziness, nonspecific DISCHARGE MEDICATIONS: Discharge Medications New Medications Details aluminum & magnesium hydroxide-simethicone 200-200-20 mg/5 mL suspension Take 30 mLs by mouth every 4 hours as needed for Indigestion. aka: MAALOX REGULAR STRENGTH Changed Medications Details pantoprazole 40 mg tablet Take 1 tablet by mouth every morning (before breakfast). What changed: when to take this aka: PROTONIX Unchanged Medications Details 5-HTP 100 MG Caps Take by mouth 2 (two) times daily. amLODIPine 5 mg tablet take 2 tablets by mouth once daily aka: NORVASC aspirin 81 MG tablet Take 81 mg by mouth Daily. cholecalciferoL 1,000 units Caps capsule Take by mouth. aka: VITAMIN D-3 clonazePAM 0.5 mg tablet Take 0.5 mg by mouth Twice daily as needed for Anxiety. aka: klonoPIN clonidine 0.2 MG tablet Take 1 tablet by mouth 3 times daily. aka: CATAPRES diphenhydrAMINE 25 MG capsule Take 25 mg by mouth as needed. aka: BENADRYL [place] 550 MG Caps Take by mouth. LORazepam 1 mg tablet 1/2 to 1 tab up to three times per day prn aka: ATIVAN MARINOL 10 MG capsule Generic drug: dronabinol Take 10 mg by mouth 2 times daily (before meals). MELATONIN (ALTERNATIVE MEDICINE - M'S) TABS, at bedtime as needed metoprolol succinate 200 mg ER tablet Take 1 tablet by mouth Daily. aka: TOPROL-XL MSM 1000 MG Tabs Take by mouth 2 (two) times daily. Nattokinase 100 MG Caps Take by mouth 2 (two) times daily. nitroglycerin 0.4 mg SL tablet Take one tablet under tongue as needed for chest pain, may repeat every 5 minutes up to 3 doses. If no relief after 3rd dose, call 911 aka: NITROSTAT ONE TOUCH DELICA LANCETS [facility] [place] [facility] Check glucose as needed for hypoglycemia OSTEO BI-FLEX/5-LOXIN ADVANCED PO Take by mouth. Takes 2 tablets in the morning and 2 tablets at night pravastatin 40 MG tablet take 1 tablet by mouth once daily aka: PRAVACHOL promethazine 25 mg tablet Take 25 mg by mouth every 8 hours as needed. aka: PHENERGAN SALMON OIL-1000 PO CAPS, one capsule by mouth daily twice daily silodosin 8 mg Caps - Take 1 capsule by mouth Daily. to reduce urinary frequency - Lot #[id number], exp 07/2016 aka: RAPAFLO UNCODED MEDICATION - Diagnosis: Obstructive Sleep Apnea - ICD-9: 327.23 - Length of Need: 99 Months valACYclovir 500 mg tablet take 1 tablet by mouth once daily aka: VALTREX vitamin C 1000 MG tablet Take 1,000 mg by mouth Daily. HOSPITAL COURSE: Please refer to the H&P for full details and the most recent rounding rounding (progress) n ote. In short this is 55 year old male with history of Nonobstructive disease on angiogram in , who was admitted with intermittent chest pain overnight. His workup since admit showed n egative troponin 3 with negative EKG. Per Dr. Brasher's recommendation patient had echocardio gram today after I saw patient this morning and reviewed this case with Dr. Brasher. Patient co ntinued to have intermittent chest pain overnight on admit, but it resolved by next morning. Patient did ambulate in the hallway yesterday afternoon after he was started on low-dose Im dur and complained of severe dizziness with ambulation and had to be helped back to bed. He denied any chest pain associated with dizziness. His orthostatic vital signs were checked an d were negative. He had couple episodes of chest pain since 5:00 p.m. yesterday evening & on e overnight, which resolved quickly with sublingual nitroglycerin. Patient also complained o f severe headache with Imdur and states they couldn't tolerate Imdur in the past due to head aches being worse. Overnight patient did well. Denies any chest pain today and no dizziness when getting up to take a shower. His orthostatic vitals were normal this am. Denies any hea dache at this time. Chest pain - Patient with history of Nonobstructive disease on angiogram in 2013, negative troponin x 3 and stable Echo, making ACS less likely. I did review case with Dr. Brasher of cardiology who agrees with this. He recommended starting patient on long acting nitro with Imdur, hence we tried started Imdur 15 mg this am. Patient however developed worsening headache on top of h is chronic headaches and became dizzy with activity. Patient is still having some chest pain despite being on long acting nitro. Suspect patient's symptoms are most likely non cardiac based on negative cardiac work up and could be secondary to underlying peptic ulcer disease/ esophagitis which has been untreated. He had significant anxiety in ED, and has been off jacqui zos for two weeks, which also may be part of his problem. Dizziness, nonspecific. Resolved. -most likely secondary to Imdur. Hence will not prescribe Imdur. - patient has history of pacemaker placement and had recent pacemaker interrogation in 2013 and was functioning properly. There is no need for pacemaker interrogation at this time. PUD - c/w Protonix to 40 by mouth daily upon discharge. c/w Maalox prn indigestion. - will need to follow up as outpatient with PCP in couple weeks after being on Protonix, an d if still having symptoms, then would need further GI work up with endoscopy. Tobacco user - Patient smokes occasional Cigar. Provided counseling about smoking cessation. Hypertension - stable. - c/w Cloninide, Amlodipine & Toprol XL. Mixed anxiety depressive disorder - c/w Clonazepam & Lorazepam prn anxiety. - may benefit from SSRI as outpatient. DISPOSITION: Home Most recent weight: Input and output for last 24hrs: Wt Readings from Last 1 Encounters: 03/18/15 107.5 kg (236 lb 15.9 oz) I/O last 24 Hours: In: 570 [P.O.:570] Out: 2400 [Urine:2400] Vitals Ranges: Temp: [36.2 C (97.2 F)-37.3 C (99.1 F)] 36.8 C (98.2 F) Pulse: [72-74] 73 Resp: [18-20] 20 BP: (103-144)/(58-90) 144/90 mmHg Vitals: Temp: 36.8 C (98.2 F) BP: 144/90 mmHg Pulse: 73 Resp: 20 SpO2: 94 % SpO2 94 % on room air at flow rate L/min PHYSICAL EXAM: Patient seen and examined by me on discharge day. General alert, NAD mood and affect normal speech fluent Cardiac RRR no MRG Extremities no significant edema Lung clear to auscultation effort not labored Abdominal + bowel sounds, soft, nontender PROCEDURES AND CONSULTS: Procedures ECHOCARDIOGRAM REPORT STUDY DATE: 03/19/2015 PATIENT NAME: Moe Sanchez : 1960 PCP: Kirk French MD CLINICAL HISTORY/DIAGNOSIS: CP A transthoracic echocardiogram with M-mode, pulsed-wave and color Doppler was performed with standard views obtained. The technical quality of this examination is adequate. The heart rhythm during the echo is sinus rhythm. The M-mode, two-dimensional, color flow and spectral Doppler data were reviewed and support the following interpretation: Interpretation: Left Atrium: Left atrial size is normal. Left ventricle: Left ventricular size is normal with mild concentric left ventricular hypertrophy and motion, and normal left ventricular systolic function. The estimated ejection fraction is 60 %. Grade 1 left ventricular diastolic dysfunction. Aortic root: Aortic root is mild dilated measuring 4.2 cm in diameter. Right Atrium: Right atrial sizes normal. Right ventricle: Right ventricular size is normal with normal wall thickness and normal right ventricular systolic function. Pericardium: Pericardium is normal. Pulmonary artery: Pulmonary artery is normal. normal right-sided pressure. Aortic valve: Aortic valve is trileaflet and opens normally. mild aortic valve insufficiency Mitral valve: Mitral valve is normal. trace mitral valve regurgitation Pulmonic valve: Pulmonic valve is normal. Tricuspid valve: Tricuspid valve is normal. mild tricuspid valve regurgitation Vena cava: The inferior vena cava is normal. There is greater than 50% inspiratory collapse of the IVC. IMPRESSIONS: 1. Normal left ventricular size, wall thickness and motion. Preserved left ventricular systolic function. LVEF is 60%. 2. Grade 1 left ventricular diastolic dysfunction. 3. Mild aortic root dilatation measuring 4.2 cm in diameter. 4. Mild mitral valve regurgitation. 5. Mild tricuspid valve regurgitation. 6. Mild aortic valve insufficiency. 7. Normal right-sided pressure. 8. Normal IVC with normal respiratory collapse. 9. When compared to echocardiogram on 12/30/12, there is no significant changes. Consults Case was reviewed with Dr. Brasher, but no official consult PENDING RESULTS: None DISPOSITION AND DISCHARGE INSTRUCTIONS: Follow-up Information Follow up with Kirk French MD In 1 week. Specialty: Internal Medicine Why: For hospital follow up Contact information: Eva Librado [facility] [address] [facility] [address] Call PARISA Russell. Specialty: Nurse Practitioner Why: As needed Contact information: [address] [place] [address] Condition: Patient being discharged with condition improved. Diet: Heart healthy, avoid acidic drinks and foods, spicy foods, too much coffee. Greater than 30 minutes were spent on discharge and coordination of post-hospital care. Electronically signed by: Thierry Fregoso DO, 03/20/2015 11:22 [facility] Portions of this chart may have been created with [employer] voice recognition software. Occasi onal wrong-word or sound-alike substitutions may have occurred due to the inherent granger itations of voice recognition software. Please read the chart carefully and recognize, using context, where these substitutions have occurred documented in this encounter Discharge Instructions Instructions Thierry Fregoso, - 03/20/2015 Peptic Ulcer A peptic ulcer is an open sore in the lining of the stomach or duodenum (upper intestine). The most common cause of peptic ulcer disease is a bacterial infection (H pylori) in the sto mach. Another common cause is taking anti-inflammatory medications (such as ibuprofen, predn isone, and aspirin). A peptic ulcer causes a dull ache or burning pain in the upper abdomen. It often starts 1 t o 3 hours after a meal or occurs in the middle of the night. The pain usually improves with eating or taking antacids. Other symptoms include nausea, vomiting, loss of appetite, belchi ng or bloating. Blood that appears in the vomit or stools (red or black) is a sign of bleedi ng in the stomach and requires immediate medical attention. Tests for H pyloriare used to screen for bacterial infection. If no infection is found, p eptic ulcer can be treated by stopping anti-inflammatory medications and using antacids plus an acid edvin medication. If H pylori is found, antibiotics will be prescribed along with an acid edvin. Persons 55 years and older may undergo other tests before treatment is sta rted. Two common tests are used to evaluate ulcer symptoms. An upper GI series is an x-ray taken after you drink a chalky liquid called barium. This coats the stomach and allows an ulcer to show up on the x-ray. Another test is called endoscopy during which a long thin tube called an endoscope is passed down your throat to the stomach. A camera at the end of the scope al lows the doctor to view inside the stomach to check the cause of your symptoms. Home Care: Take the prescribed acid edvin medication for the full course of treatment even if you begin to feel better sooner. This medication can take up to several days to fully control y our symptoms. If you can t afford the prescribed medication, you can try [id number] acid blockers, such as Pepcid AC, Tagamet, Zantac, or Aciphex. If these do not relieve your symptoms, a stronger acid edvin can be tried, such as Prilosec OTC. If you have been prescribed an antibiotic to treat H pyloriinfection, finish the full course of medication. Do so even if you begin to feel better sooner. If you stop the medicat ion too soon, the infection can return and be harder to treat. You can use antacids, such as Tums, Rolaids, Mylanta, or Maalox, for pain. This will be useful the first few days after starting acid blockers when the blockers haven t started w orking yet. Follow the directions on the label. Liquid antacids may work better than tablets . Note that antacids can interfere with absorption of certain medications. Specifically, do not take Tagamet (cimetidine), Zantac (ranitidine), or Carafate (sucralfate) within 1 hour o f taking an antacid. Talk with your pharmacist if you have any questions. Although foods do not cause an ulcer, symptoms can be worsened by certain foods. Limit o r avoid fatty, fried, and spicy foods, as well as coffee, chocolate, mint, and foods with hi gh acid content such as tomatoes and citrus fruit and juices (orange, grapefruit, lemon). Avoid alcohol, caffeine, and tobacco, which can delay healing. Avoid aspirin and anti-inflammatory medications such as ibuprofen (Advil, Motrin) and na proxen (Naprosyn, Aleve). Acetaminophen (Tylenol) is safe to use. Do not take more than the amount listed on the label. Follow Up with your doctor or as directed by our staff. Further testing may be needed. I f you do not begin to improve over the next 4 days, contact your doctor. Get Prompt Medical Attention If Any Of The Following Occur: Stomach pain gets worse or moves to the lower right abdomen (appendix area) Chest pain appears or gets worse, or spreads to the back, neck, shoulder, or arm Frequent vomiting (can t keep down liquids) Blood in the stool or vomit (red or black in color) Feeling weak or dizzy, fainting, or trouble breathing Fever of 100.4F (38C) or higher, or as directed by your healthcare provider [phone] [employer] [address] [place] [address], [place] [address]. All righ ts reserved. This information is [...] + + + +---------+ + + | [place]-3 Fatty | CAPS, one capsule by | [...] + + +---------+ + + | EMMA LYMAN | Take by mouth. | | 0 [...] | | | | | | | #[id number], exp 07/2016 | | | | | [...] documented as of this encounter Progress Notes Jessy Amaya RN - 03/20/2015 9:33 AM PDTPt alert and oriented, anxious states " I'm ready to go home", denies chest pain, HRR - tele on, No edema, LS-C clear/dim RA, BT+x4 , voiding, independent in room, Chronic B/L foot numbness Pt states r/t hx of cervical surg triny, Missing teeth, IV in R hand s/l, sitting up at bedside eating Breakfast, will call when done so Ortho BP can be done. Orthostatic BP - complete Thierry Coronado DO - 03/19/2015 10:09 PM PDT . [facility] PROGRESS NOTE Patient: Moe Sanchez : 1960: Age: 55 y.o. MedRec: [id number] PCP: Kirk French Admission date: 03/18/2015 Hospital day # : 1 Physician author: Thierry Fregoso DO Today: 03/19/2015 Allergies: Allergies Allergen Reactions Clarithromycin Palpitations Rapid heartbeat Duloxetine Other (See Comments) Blood pressure and heart increase/palpitations Fentanyl Itching and Rash Hydrocodone Itching and Anxiety Agitation and grumpiness Penicillins Rash Tramadol Hcl Itching Current Medications: Current Facility-Administered Medications Medication Dose Route Frequency Provider Last Rate Last Dose acetaminophen (TYLENOL) tablet 650 mg 650 mg Oral Q4H PRN Parth Kraft MD aluminum & magnesium hydroxide-simethicone (MAALOX REGULAR STRENGTH) 200-200-20 mg/5 mL suspension 30 mL 30 mL Oral Q4H PRN Thierry Fregoso DO lidocaine (XYLOCAINE) 2% viscous solution 10 mL 10 mL Oral Once PRN Thierry Fregoso DO And aluminum & magnesium hydroxide-simethicone (MAALOX REGULAR STRENGTH) 200-200-20 mg/5 mL suspension 30 mL 30 mL Oral Once PRN Thierry Fregoso DO amLODIPine (NORVASC) tablet 10 mg 10 mg Oral Daily Parth Kraft MD 10 mg at 0949 aspirin chewable tablet 81 mg 81 mg Oral Daily Parth Kraft MD 81 mg at 5 0949 calcium carbonate (TUMS) chewable tablet 1,000 mg 1,000 mg Oral Q4H PRN Parth Butts ch, MD clonazePAM (klonoPIN) tablet 0.5 mg 0.5 mg Oral BID PRN Parth Kraft MD 0.5 mg at 03/19/15 203 cloNIDine (CATAPRES) tablet 0.2 mg 0.2 mg Oral TID Parth Kraft MD 0.2 mg at 1405 docusate sodium (COLACE) capsule 100 mg 100 mg Oral BID PRN Parth Kraft MD metoprolol succinate (TOPROL-XL) ER tablet 200 mg 200 mg Oral Daily Parth Kraft MD 200 mg at 03/19/15 0950 nitroglycerin (NITROSTAT) SL tablet 0.4 mg 0.4 mg Sublingual Q5 Min PRN Parth Butts ch, MD 0.4 mg at 03/19/15 193 ondansetron (ZOFRAN) injection 4 mg 4 mg Intravenous Q6H PRN Parth Kraft MD pantoprazole (PROTONIX) DR tablet 40 mg 40 mg Oral BID AC Thierry Fregoso DO pravastatin (PRAVACHOL) tablet 40 mg 40 mg Oral Nightly Parth Kraft MD 40 mg a t 03/19/152033 senna (SENOKOT) tablet 8.6 mg 8.6 mg Oral BID PRN Parth Kraft MD Current Infusions: Objective Data Labs Recent Labs Lab 03/19/15 0350 03/18/15 1528 WBC 5.9 7.6 HGB 16.3 17.1 HCT 46.5 49.5 PLT 136* 175 NEUPCT 48.3 58.6 MONPCT 9.6 10.2 Recent Labs Lab 03/18/15 1534 PROTIME 13.4 INR 1.02 No results for input(s): PTT in the last 168 hours. Recent Labs Lab 03/19/15 0350 03/18/15 1528 GLU 109 116* NA 135* 139 K 3.5 4.1 CL 106 105 CO2 25 26 ANIONGAP 4 8 BUN 15 18 CREA 0.90 0.97 GFRNONAA >60 >60 CALCIUM 8.9 9.5 ALBUMIN -- 4.2 TOTALPROTEIN -- 6.6 BILITOT -- 0.9 ALKPHOS -- 56 ALT -- 25 AST -- 29 Recent Labs Lab 03/18/15 1534 BNP 11 Recent Labs Lab 03/18/15 1528 MG 2.1 Recent Labs Lab 03/18/15 1528 PHOS 3.8 Recent Labs Lab 03/18/15 1528 LIPASE 23 No results for input(s): AMMONIA in the last 168 hours. Recent Labs Lab 03/19/15 0350 03/18/15 1708 03/18/15 1528 TROPONINI <0.01 <0.01 0.01 [facility] ECHOCARDIOGRAM REPORT STUDY DATE: 03/19/2015 PATIENT NAME: Moe Sanchez : 1960 PCP: Kirk French MD CLINICAL HISTORY/DIAGNOSIS: CP A transthoracic echocardiogram with M-mode, pulsed-wave and color Doppler was performed with standard views obtained. The technical quality of this examination is adequate. The heart rhythm during the echo is sinus rhythm. The M-mode, two-dimensional, color flow and spectral Doppler data were reviewed and support the following interpretation: Interpretation: Left Atrium: Left atrial size is normal. Left ventricle: Left ventricular size is normal with mild concentric left ventricular hypertrophy and motion, and normal left ventricular systolic function. The estimated ejection fraction is 60 %. Grade 1 left ventricular diastolic dysfunction. Aortic root: Aortic root is mild dilated measuring 4.2 cm in diameter. Right Atrium: Right atrial sizes normal. Right ventricle: Right ventricular size is normal with normal wall thickness and normal right ventricular systolic function. Pericardium: Pericardium is normal. Pulmonary artery: Pulmonary artery is normal. normal right-sided pressure. Aortic valve: Aortic valve is trileaflet and opens normally. mild aortic valve insufficiency Mitral valve: Mitral valve is normal. trace mitral valve regurgitation Pulmonic valve: Pulmonic valve is normal. Tricuspid valve: Tricuspid valve is normal. mild tricuspid valve regurgitation Vena cava: The inferior vena cava is normal. There is greater than 50% inspiratory collapse of the IVC. IMPRESSIONS: 1. Normal left ventricular size, wall thickness and motion. Preserved left ventricular systolic function. LVEF is 60%. 2. Grade 1 left ventricular diastolic dysfunction. 3. Mild aortic root dilatation measuring 4.2 cm in diameter. 4. Mild mitral valve regurgitation. 5. Mild tricuspid valve regurgitation. 6. Mild aortic valve insufficiency. 7. Normal right-sided pressure. 8. Normal IVC with normal respiratory collapse. 9. When compared to echocardiogram on 12/30/12, there is no significant changes. No results for input(s): PHART, PO2ART, YZE0LCN, XGJ4KNC, BEART, W7WKOFAH in the last 168 h ours. No results for input(s): SPECSOURCE, PHPOCB, HCO3, TCO2, BEART, BE, VPWH2NWN in the last 16 8 hours. Invalid input(s): KIVNF1XT, GYFH4ED Point of care glucose: No results for input(s): POCGLU in the last 168 hours. Serial weights: Filed Weights: 03/18/15 1438 03/18/152119 Weight: 113.399 kg (250 lb) 107.5 kg (236 lb 15.9 oz) Most recent weight: Input and output for last 24hrs: Wt Readings from Last 1 Encounters: 03/18/15 107.5 kg (236 lb 15.9 oz) I/O last 24 Hours: In: 1150 [P.O.:1150] Out: 2175 [Urine:2175] I/O last 3 completed shifts: In: 1650 [P.O.:1150; IV Piggyback:500] Out: 2175 [Urine:2175] Vitals Ranges: Temp: [36.2 C (97.2 F)-37.3 C (99.1 F)] 36.7 C (98.1 F) Pulse: [69-74] 72 Resp: [18-20] 18 BP: (102-122)/(58-75) 103/71 mmHg Vitals: Temp: 36.7 C (98.1 F) BP: 103/71 mmHg Pulse: 72 Resp: 18 SpO2: 95 % SpO2 95 % on room air at flow rate L/min Subjective Patient was admitted with intermittent chest pain overnight. His workup since admit showed negative troponin 3 with negative EKG. Per Dr. Brasher's recommendation patient had echocar diogram today after I saw patient this morning and reviewed this case with Dr. Brasher. Carey t continued to have intermittent chest pain overnight but it resolved by earlier this mornin g. Patient did ambulate in the hallway this afternoon after he was started on low-dose Imdu r and complained of severe dizziness with ambulation and had to be helped back to bed. He d enied any chest pain associated with dizziness. His orthostatic vital signs were checked an d were negative. He had couple episodes of chest pain since 5:00 p.m. this evening which res olved quickly with sublingual nitroglycerin. Patient also complained of severe headache wit h Imdur and states they couldn't tolerate it in the past due to headaches being worse. ROS See above Exam General alert, NAD mood and affect normal speech fluent Cardiac RRR no MRG Extremities no significant edema Lung clear to auscultation effort not labored Abdominal + bowel sounds, soft, nontender Assessment and Hospital Course Active Hospital Problems Diagnosis Chest pain Dizziness, nonspecific PUD Tobacco user Hypertension Mixed anxiety depressive disorder Resolved Hospital Problems Diagnosis No resolved problems to display. Plan Chest pain - Patient with history of Nonobstructive disease on angiogram in 2013, negative troponin x 3 and stable Echo, making ACS less likely. I did review case with Dr. Brasher of cardiology who agrees with this. He recommended starting patient on long acting nitro with Imdur, hence we tried started Imdur 15 mg this am. Patient however developed worsening headache on top of h is chronic headaches and became dizzy with activity. Patient is still having some chest pain despite being on long acting nitro. Suspect patient's symptoms are most likely non cardiac based on negative cardiac work up and could be secondary to underlying peptic ulcer disease/ esophagitis which has been untreated. He had significant anxiety in ED, and has been off jacqui zos for two weeks, which also may be part of his problem. Dizziness, nonspecific - could be secondary to Imdur. Hence will stop Imdur. - c/w orthostatic vitals qshift. - re-access in am. - patient has history of pacemaker placement and had recent pacemaker interrogation in 2013 and was functioning properly. There is no need for pacemaker interrogation at this time. PUD - Increase Protonix to 40 by mouth twice a day. Add MiraLAX and GI cocktail by mouth prn c hest pain/indigestion. - will need to follow up as outpatient with PCP in couple weeks after being on Protonix, an d if still having symptoms, then would need further GI work up with endoscopy. Tobacco user - Provided counseling about smoking cessation. Hypertension - c/w Cloninide, Amlodipine & Toprol XL. Mixed anxiety depressive disorder - c/w Clonazepam prn anxiety. - may benefit from SSRI as outpatient. Time spent with the patient (of which more than 50% was in counseling and/or coordination t he patient's care as outlined above) was 40 minutes today. Thierry Fregoso DO 03/19/2015 22:09 [facility] Portions of this chart may have been created with Weemba voice recognition software. Occasi onal wrong-word or sound-alike substitutions may have occurred due to the inherent granger itations of voice recognition software. Please read the chart carefully and recognize, using context, where these substitutions have occurred Belén Cho RN - 03/19/2015 11:03 AM [id number] Report given to Marlen morejon who is assuming care. Electronically signed by: Jaja Hay RN 03/19/2015 11:04 ieter Callejas RN - 03/19/2015 10:44 AM PDTAssumed care of patient, received report from MONROE Wilkinson. documented in t his encounter H&P Notes Parth Kraft MD - 03/18/2015 8:45 PM PDTFormatting of this note might be different f rom the original. [facility] HISTORY AND PHYSICAL Pt. Name/Age/: Moe Sanchez 55 y.o. 1960 Date of admission: 03/18/2015 Admitting Physician: Parth Kraft MD Primary Care Provider: Kirk French CHIEF COMPLAINT: Chest pain HISTORY OF PRESENT ILLNESS: This is a 55 y.o. 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 He had an left heart catheterization in 2013, which reportedly showed nonobstructive CAD, a lthough the report is not available at this time. He states he had a very severe episode of chest pain 6-8 weeks ago, and since that time, paulino s had almost daily episodes of chest pain. He states the pain comes and goes during the day , and is not necessarily associated with exertion. He also has frequent palpitations associ ated with exertion. He does feel shortness of breath and chest pain associated with signifi cant exertion. The pain feels sharp, "like a knife", sticking in his substernal region. Th e problems have been worse since running out of his pantoprazole, lorazepam and clonazepam t wo weeks ago. Today's episode lasted about an hour, and was associated with shortness of breath and sweat ing, but not nausea or radiation. He came to the ER, and took 3 nitros, after which time, h is pain resolved. He had an EKG which showed no changes, and two negative troponins, along with a chest CT angiogram which showed stable aortic ectasia. PAST MEDICAL and SURGICAL HISTORY: Past Medical History Diagnosis Date Lower back [...] LAST PSA:12/16/2010 RESULT:0.14 LAST COLONOSCOPY:02/05/2009 RESULTnormal exam Bladder troubles Tuberculosis Anginal pain (HCC) Stroke (HCC) Prostate troubles Neurological disorder Past Surgical History Procedure Laterality Date Knee surgery 2004 meniscus-right Laminectomy 1991 L3-4 Lumbar discectomy 1991 L3-4 Appendectomy 2005 [place] Sinus surgery 1998 Lumbar fusion 01/2011 6 spine fusions Pacemaker placement 06/14/09 Neck fusion 08/10/2012 [place] Ablation 04/03/13 Shoulder surgery 03/22/13 Cardiac catherization 12/25/13 Left Stomach surgery Vasectomy Neck surgery FAMILY HISTORY: family history includes Cancer in his father. SOCIAL HISTORY: reports that he has been smoking Cigars. He has never used smokeless tobacco. He reports that he drinks about 2.4 ounces of alcohol per week. He reports that he uses illicit drugs ( Marijuana) about 7 times per week. He reports drinking only 4 beers a week, but states he paulino s a history of alcoholism, and want to quit. Eats about 2-3 grams of marijuana daily. REVIEW OF SYSTEMS: Significant for significant anxiety. No fevers, new cough or sputum production. A comple te 14-system review was otherwise negative except as noted in the HPI. HOME MEDICATIONS: Current Discharge Medication List CONTINUE these medications which have NOT CHANGED Details 5-Hydroxytryptophan (5-HTP) 100 MG CAPS Take by mouth 2 (two) times daily. amLODIPine (NORVASC) 5 mg tablet take 2 tablets by mouth once daily Qty: 60 tablet, Refills: 6 Ascorbic Acid (VITAMIN C) 1000 MG tablet Take 1,000 mg by mouth Daily. aspirin 81 MG tablet Take 81 mg by mouth Daily. cholecalciferoL (VITAMIN D-3) 1,000 units CAPS capsule Take by mouth. clonazePAM (KLONOPIN) 0.5 mg tablet Take 0.5 mg by mouth Twice daily as needed for Anxiety . clonidine (CATAPRES) 0.2 MG tablet Take 1 tablet by mouth 3 times daily. Qty: 90 tablet, Refills: 4 diphenhydrAMINE (BENADRYL) 25 MG capsule Take 25 mg by mouth as needed. dronabinol (MARINOL) 10 MG capsule Take 10 mg by mouth 2 times daily (before meals). EMMA LYMAN 550 MG CAPS Take by mouth. LORazepam (ATIVAN) 1 mg tablet 1/2 to 1 tab up to three times per day prn Qty: 20 tablet, Refills: 0 MELATONIN TABS, at bedtime as needed Methylsulfonylmethane (MSM) 1000 MG TABS Take by mouth 2 (two) times daily. metoprolol succinate (TOPROL-XL) 200 mg ER tablet Take 1 tablet by mouth Daily. Qty: 30 tablet, Refills: 6 [facility] Natural Products (OSTEO BI-FLEX/5-LOXIN ADVANCED PO) Take by mouth. Takes 2 tablets i n the morning and 2 tablets at night Nattokinase 100 MG CAPS Take by mouth 2 (two) times daily. nitroglycerin (NITROSTAT) 0.4 mg SL tablet Take one tablet under tongue as needed for chest pain, may repeat every 5 minutes up to 3 doses. If no relief after 3rd dose, call 911 Qty: 25 tablet, Refills: 11 [place]-3 Fatty Acids (SALMON OIL-1000 PO) CAPS, one capsule by mouth daily twice daily ONE TOUCH DELICA LANCETS [facility] Check glucose as needed for hypoglycemia Qty: 100 each, Refills: 3 Associated Diagnoses: Hypoglycemia pantoprazole (PROTONIX) 40 mg tablet Take 1 tablet by mouth Daily. Qty: 30 tablet, Refills: 6 pravastatin (PRAVACHOL) 40 MG tablet take 1 tablet by mouth once daily Qty: 90 tablet, Refills: 1 promethazine (PHENERGAN) 25 mg tablet Take 25 mg by mouth every 8 hours as needed. silodosin (RAPAFLO) 8 mg CAPS Take 1 capsule by mouth Daily. to reduce urinary frequency Lot #[id number], exp 07/2016 Qty: 21 capsule, Refills: 0 UNCODED MEDICATION Diagnosis: Obstructive Sleep Apnea ICD-9: 327.23 Length of Need: 99 Months Qty: 1 Device, Refills: 0 Comments: A7033 -Nasal Pillows, K8243-Evagt Mask, A7030- Full Face Mask, E7844-Jmukch Humi difier, L6359-Bskybc Tubing, W1490-Awtdxkxo, E4009-Tqynihhjq A7039/T8288-Xuypfjf valACYclovir (VALTREX) 500 mg tablet take 1 tablet by mouth once daily Qty: 90 tablet, Refills: 1 ALLERGIES: Allergies Allergen Reactions Clarithromycin Palpitations Rapid heartbeat Duloxetine Other (See Comments) Blood pressure and heart increase/palpitations Fentanyl Itching and Rash Hydrocodone Itching and Anxiety Agitation and grumpiness Penicillins Rash Tramadol Hcl Itching VITAL SIGNS: Temp: 35.8 C (96.4 F), Pulse: 73, Resp: 20, BP: 102/74 mmHg, SpO2 95 % on room air at f low rate L/min Temp Min: 35.8 C (96.4 F) Max: 36.6 C (97.8 F) Weight: 113.399 kg (250 lb) PHYSICAL EXAMINATION: Gen Hai - alert, cooperative and no distress, anxious Head - Normocephalic, without obvious abnormality Eyes - conjunctiva/corneas clear ENT - mucous membranes moist Neck - supple Lungs - clear to auscultation, no wheezes or rales and unlabored breathing Heart - normal rate, regular rhythm, normal S1, S2, no murmurs, rubs, clicks or gallops Abdomen - soft, non-tender, without masses or organomegaly Extremities - no peripheral edema, no clubbing or cyanosis DIAGNOSTIC STUDIES: Available data and images were reviewed personally. Significant results and findings are a ddressed here or in the Assessment and Plan. Recent Results (from the past 24 hour(s)) CBC WITH DIFFERENTIAL Result Value Ref Range WBC 7.6 4.0-11.0 K/uL RBC 5.05 4.30-5.70 M/uL Hgb 17.1 13.5-18.0 g/dL Hct 49.5 40.0-51.0 % MCV 98.1 83.0-101.0 fL MCH 33.9 28.0-35.0 pg MCHC 34.5 32.0-36.0 g/dL RDW 12.7 <15.0 % Platelet Count 175 140-440 K/uL MPV 9.2 % Neutrophils 58.6 45.0-82.0 % % Lymphocytes 29.1 20.0-45.0 % % Monocytes 10.2 4.0-12.0 % % Eosinophils 1.1 0.0-5.0 % % Basophils 1.0 0.0-1.0 % Absolute Neutrophils 4.50 1.80-8.50 K/uL Absolute Lymphocytes 2.20 0.60-3.20 K/uL Absolute Monocytes 0.80 0.00-1.00 K/uL Absolute Eosinophils 0.10 0.00-0.40 K/uL Absolute Basophils 0.10 0.00-0.10 K/uL COMPREHENSIVE METABOLIC PANEL Result Value Ref Range NA 139 136-149 mmol/L K 4.1 3.5-5.1 mmol/L CL 105 98-109 mmol/L CO2 26 24-31 mmol/L ANION GAP 8 3-16 mmol/L GLUCOSE 116 (*) 70-109 mg/dL BUN 18 7-18 mg/dL Creatinine, Serum/Plasma 0.97 0.60-1.30 mg/dL eGFR if not >60 >=60 mL/min/1.73m2 CALCIUM 9.5 8.3-10.5 mg/dL ALBUMIN 4.2 3.2-5.0 g/dL BILIRUBIN TOTAL 0.9 0.1-1.5 mg/dL Total protein 6.6 6.0-7.8 g/dL AST 29 10-42 U/L ALT 25 6-45 U/L ALK PHOS 56 40-110 U/L GLOBULIN 2.4 Albumin/Globulin ratio 1.8 BUN/CREA 18.6 LIPASE Result Value Ref Range LIPASE 23 0-60 U/L TROPONIN I Result Value Ref Range TROPONIN I 0.01 <0.06 ng/mL MAGNESIUM Result Value Ref Range MG 2.1 1.8-2.5 mg/dL PHOSPHORUS Result Value Ref Range PHOSPHORUS 3.8 2.5-4.6 mg/dL B TYPE NATRIURETIC PEPTIDE Result Value Ref Range BNP 11 <100 pg/mL PROTIME INR Result Value Ref Range PROTIME 13.4 11.3-13.9 seconds INR 1.02 0.90-1.10 TROPONIN I Result Value Ref Range TROPONIN I <0.01 <0.06 ng/mL CBC WITH DIFFERENTIAL Result Value Ref Range WBC 5.9 4.0-11.0 K/uL RBC 4.79 4.30-5.70 M/uL Hgb 16.3 13.5-18.0 g/dL Hct 46.5 40.0-51.0 % MCV 97.1 83.0-101.0 fL MCH 34.0 28.0-35.0 pg MCHC 35.0 32.0-36.0 g/dL RDW 12.6 <15.0 % Platelet Count 136 (*) 140-440 K/uL MPV 9.4 % Neutrophils 48.3 45.0-82.0 % % Lymphocytes 39.5 20.0-45.0 % % Monocytes 9.6 4.0-12.0 % % Eosinophils 1.6 0.0-5.0 % % Basophils 1.0 0.0-1.0 % Absolute Neutrophils 2.90 1.80-8.50 K/uL Absolute Lymphocytes 2.30 0.60-3.20 K/uL Absolute Monocytes 0.60 0.00-1.00 K/uL Absolute Eosinophils 0.10 0.00-0.40 K/uL Absolute Basophils 0.10 0.00-0.10 K/uL BASIC METABOLIC PANEL Result Value Ref Range NA 135 (*) 136-149 mmol/L K 3.5 3.5-5.1 mmol/L CL 106 98-109 mmol/L CO2 25 24-31 mmol/L ANION GAP 4 3-16 mmol/L GLUCOSE 109 70-109 mg/dL BUN 15 7-18 mg/dL Creatinine, Serum/Plasma 0.90 0.60-1.30 mg/dL eGFR if not >60 >=60 mL/min/1.73m2 CALCIUM 8.9 8.3-10.5 mg/dL BUN/CREA 16.7 Xr Chest Ap Portable 03/18/2015 XR CHEST AP PORTABLE. 03/18/2015 3:51 PM HISTORY: SHORTNESS OF BREATH CHEST PA IN . COMPARISON: 05/13/2011 FINDINGS: Cardiac pacing device is seen overlying the left he mithorax, with intact-appearing leads extending into the right heart. Heart size and medias tinal contours are within normal limits. No focal consolidation to suggest pneumonia. No p leural effusion or pneumothorax. IMPRESSION - No acute radiographic abnormality of the baljit st. Dictated and Signed by: Kenneth Kline MD Electronically signed: 03/18/2015 4:[address] Angiogram Chest W Contrast 03/18/2015 CT ANGIOGRAM CHEST W CONTRAST 03/18/2015 4:40 PM HISTORY: Shortness of breath, chest pain, history of aortic dilatation. COMPARISON: CTA chest 05/26/2014. PROTOCOL: Thin s ection axial images of the chest were obtained after uneventful administration of 80 mL Omni paque 350. Coronal and sagittal reformations were acquired. FINDINGS: Neck base is normal. The heart is of normal size. There is stable ectasia of the ascending thoracic aorta that m easures up to 4.1 cm in the AP dimension. The pulmonary arteries are unremarkable. SVC is no rmal. No enlarged lymph nodes are seen in the mediastinum, clifton, or axilla. Trachea and eso phagus demonstrate no acute findings. The bilateral lungs are clear. There is no evidence f or pleural effusion or pneumothorax. The spleen has a heterogeneous appearance, likely due to contrast timing. There is bilateral gynecomastia. A left pacemaker is observed with lead s to the heart. There is fusion hardware of the lower cervical spine. The thoracic spine angelito ws no acute findings. There are old fractures of the posterior right ribs. IMPRESSION - No acute findings. Stable ectasia of ascending thoracic aorta that measures up to 4.1 cm. Thi s information was sent to the ER. Dictated and Signed by: Nuno Leigh MD Electronically signed: 03/18/2015 5:00 PM EKG: Reviewed independently by me. The tracing shows paced atrial rhythm ASSESSMENT and PLAN: Chest pain Assessment & Plan Nonobstructive CAD noted on LHC from 2013, no EKG changes, and negative troponins, making A CS less likely, and will admit under observation overnight on telemetry. No acute abnormali ties noted on chest CT angiogram. Has palpitations and will ask cardiology to interrogate p acer tomorrow. Possible that he has untreated GERD/esophagitis, and will restart his pantoprazole. He has significant anxiety in ED, and has been off benzos for two weeks, which also may be part of his problem. He does have a history of chronic pain syndrome and fibromyalgia, and may need to work on c hronic pain plan as outpt. Mixed anxiety depressive disorder Assessment & Plan Has history of anxiety/depression, not on antidepressive currently. May benefit from SSRI. Hypertension Assessment & Plan On amlodipine, clonidine, and metoprolol. Continue home meds. PUD Assessment & Plan Restart pantoprazole. DVT Prophylaxis SCD's while in bed Code Status Full Code. CMS Documentation This patient will be placed in observation status. Total of 50 minutes were required to complete the admission process. Reviewed and summariz ed past medical records. Medical Decisionmaker: Electronically signed by: Parth Kraft MD 03/19/2015 4:24 [facility] Portions of this chart may have been created with Weemba voice recognition software. Occasi onal wrong-word or sound-alike substitutions may have occurred due to the inherent granger itations of voice recognition software. Please read the chart carefully and recognize, using context, where these substitutions have occurred documented in this encounter Procedure Notes Evan Gandara MD - 03/19/2015 7:50 AM PDTAssociated Order(s): ECG 12 LEAD Adult ECG Repo rt Name: Moe Sanchez Age: 55 y.o. Gender: male 03/18/15 at 14:40 Narrative Interpretation: Atrial paced rhythm. Normal axis. No acute ischemic changes. documented in this [facility] ED Notes Martell Hart MD - 03/18/2015 3:17 PM PDTFormatting of this note might be d ifferent from the original. [facility] Moe Sanchez Emergency Department Encounter Note [address] [place] [id number] PCP:Kirk French [phone] eMERGENCY dEPARTMENT eNCOUnter CHIEF COMPLAINT Chief Complaint Patient presents with Shortness of Breath Chest Pain HPI Moe Sanchez is a 55 y.o. male who presents with some dizziness through out the day. Patient with intermittent chest pain at work today. Patient states he's had profound dizziness and shortness of breath with ambulation. Patient states when he gets up and goes to the bathroom and walked back to where he sitting he feels very tired and weak. He does state he is under a significant amount of stress currently. Patient denies any cough he den ies any fever he explains that he has significant weakness that is not with rest. Patient denies any nausea or vomiting or dominant pain he has no other symptoms. Per patient states that he is having frequent palpitations and what he thinks are PVCs. He states his been doing very good with this as he had an ablation approximately 3 years ago. Currently patient's resting in the bed with pacemaker spikes present on the monitor. Patient is described had central chest, heavy pain, rated at a moderate to severe level. PAST MEDICAL HISTORY Past Medical History Diagnosis Date Lower back [...] LAST PSA:12/16/2010 RESULT:0.14 LAST COLONOSCOPY:02/05/2009 RESULTnormal exam Bladder troubles Tuberculosis Anginal pain (HCC) Stroke (HCC) Prostate troubles Neurological disorder SURGICAL HISTORY Past Surgical History Procedure Laterality Date Knee surgery 2004 meniscus-right Laminectomy 1992 L3-4 Lumbar discectomy 1992 L3-4 Appendectomy 2006 [place] Sinus surgery 1998 Lumbar fusion 01/2011 6 spine fusions Pacemaker placement 06/14/09 Neck fusion 08/10/2012 [place] Ablation 04/03/13 Shoulder surgery 03/22/13 Cardiac catherization 12/25/13 Left Stomach surgery Vasectomy Neck surgery CURRENT MEDICATIONS Previous Medications 5-HYDROXYTRYPTOPHAN (5-HTP) 100 MG CAPS Take by mouth 2 (two) times daily. AMLODIPINE (NORVASC) 5 MG TABLET take 2 tablets by mouth once daily ASCORBIC ACID (VITAMIN C) 1000 MG TABLET Take 1,000 mg by mouth Daily. ASPIRIN 81 MG TABLET Take 81 mg by mouth Daily. CHOLECALCIFEROL (VITAMIN D-3) 1,000 UNITS CAPS CAPSULE Take by mouth. CLONAZEPAM (KLONOPIN) 0.5 MG TABLET Take 0.5 mg by mouth Twice daily as needed for Anx iety. CLONIDINE (CATAPRES) 0.2 MG TABLET Take 1 tablet by mouth 3 times daily. DIPHENHYDRAMINE (BENADRYL) 25 MG CAPSULE Take 25 mg by mouth as needed. DRONABINOL (MARINOL) 10 MG CAPSULE Take 10 mg by mouth 2 times daily (before meals). EMMA LYMAN 550 MG CAPS Take by mouth. LORAZEPAM (ATIVAN) 1 MG TABLET 1/2 to 1 tab up to three times per day prn MELATONIN TABS, at bedtime as needed METHYLSULFONYLMETHANE (MSM) 1000 MG TABS Take by mouth 2 (two) times daily. METOPROLOL SUCCINATE (TOPROL-XL) 200 MG ER TABLET Take 1 tablet by mouth Daily. [facility] NATURAL PRODUCTS (OSTEO BI-FLEX/5-LOXIN ADVANCED PO) Take by mouth. Takes 2 table ts in the morning and 2 tablets at night NATTOKINASE 100 MG CAPS Take by mouth 2 (two) times daily. NITROGLYCERIN (NITROSTAT) 0.4 MG SL TABLET Take one tablet under tongue as needed for c hest pain, may repeat every 5 minutes up to 3 doses. If no relief after 3rd dose, call 911 [place]-3 FATTY ACIDS (SALMON OIL-1000 PO) CAPS, one capsule by mouth daily twice daily ONE TOUCH DELICA LANCETS [facility] Check glucose as needed for hypoglycemia PANTOPRAZOLE (PROTONIX) 40 MG TABLET Take 1 tablet by mouth Daily. PRAVASTATIN (PRAVACHOL) 40 MG TABLET take 1 tablet by mouth once daily PROMETHAZINE (PHENERGAN) 25 MG TABLET Take 25 mg by mouth every 8 hours as needed. SILODOSIN (RAPAFLO) 8 MG CAPS Take 1 capsule by mouth Daily. to reduce urinary frequenc y Lot #[id number], exp 07/2016 UNCODED MEDICATION Diagnosis: Obstructive Sleep Apnea ICD-9: 327.23 Length of Need: 99 Months VALACYCLOVIR (VALTREX) 500 MG TABLET take 1 tablet by mouth once daily ALLERGIES Allergies Allergen Reactions Alcohol-Fentanyl Clarithromycin Duloxetine Hydrocodone Penicillins Tramadol Hcl FAMILY HISTORY Family History Problem Relation Age of Onset Cancer Father colon,prostate SOCIAL HISTORY History Social History Marital Status: Spouse Name: Andreia Number of Children: 2 Years of Education: 12 Occupational History disabled Disabled Social History Main Topics Smoking status: Current Some Day Smoker Types: Cigars Smokeless tobacco: Never Used Comment: 1 cigar twice a year for 30 (when he went fishing) Alcohol Use: 2.4 oz/week 4 Cans of beer per week Drug Use: 7.00 per week Special: Marijuana Sexual Activity: Partners: Female Comment: to Andreia Other Topics Concern None Social History Narrative Exercise: Walking and chasing dog Caffeine:None Living situation: lives at home with Andreia in own home REVIEW OF SYSTEMS Please see HPI, All systems negative except as marked. Twelve point review of system comp leted my me. PHYSICAL EXAM VITAL SIGNS: Temp: 36.6 C (97.8 F) Pulse: 74 Resp: 16 SpO2: 97 % BP: 121/85 mmHg Constitutional: Well developed, Well nourished, Non-toxic appearance. HENT: Normocephalic, Atraumatic, Bilateral external ears normal, Oropharynx moist, No oral exudates, Nose normal. Neck- Normal range of motion, No tenderness, Supple, No stridor. Eyes: PERRL, EOMI, Conjunctiva normal, No discharge. Respiratory: Normal breath sounds, No respiratory distress, No wheezing, No chest tenderne ss. Cardiovascular: Normal heart rate, Normal rhythm, No arhythmia, No murmurs, No rubs, No gallops. GI: Bowel sounds normal, Soft, No tenderness, No masses, No pulsatile masses. : defered Musculoskeletal: Intact distal pulses, No edema, No tenderness, No cyanosis, No clubbing. Good range of motion in all major joints. No tenderness to palpation or major deformities no kevin. Back:- No tenderness. Skin: Warm, Dry, No erythema, No rash. Lymphatic: No lymphadenopathy noted. Neurologic: Alert & oriented x 3, Normal motor function, Normal sensory function, No focal deficits noted, no facial assymetry noted. Equal caul puller in all extremities Psychiatric: Affect normal, Judgment normal, Mood normal. EKG Interpretation Interpreted by emergency department physician Rhythm: electric pacemaker. Rate: 73 Martin: normal Ectopy: none Conduction: P wave normal, normal QRS ST Segments: normal no elevation, depression, or prolongation. T Waves: no acute change Q Waves: none RADIOLOGY No eff, no inf. Xr Chest Ap Portable 03/18/2015 XR CHEST AP PORTABLE. 03/18/2015 3:51 PM HISTORY: SHORTNESS OF BREATH CHEST PA IN . COMPARISON: 05/13/2011 FINDINGS: Cardiac pacing device is seen overlying the left he mithorax, with intact-appearing leads extending into the right heart. Heart size and medias tinal contours are within normal limits. No focal consolidation to suggest pneumonia. No p leural effusion or pneumothorax. IMPRESSION - No acute radiographic abnormality of the baljit st. Dictated and Signed by: Kenneth Kline MD Electronically signed: 03/18/2015 4:[address] Angiogram Chest W Contrast 03/18/2015 CT ANGIOGRAM CHEST W CONTRAST 03/18/2015 4:40 PM HISTORY: Shortness of breath, chest pain, history of aortic dilatation. COMPARISON: CTA chest 05/26/2014. PROTOCOL: Thin s ection axial images of the chest were obtained after uneventful administration of 80 mL Omni paque 350. Coronal and sagittal reformations were acquired. FINDINGS: Neck base is normal. The heart is of normal size. There is stable ectasia of the ascending thoracic aorta that m easures up to 4.1 cm in the AP dimension. The pulmonary arteries are unremarkable. SVC is no rmal. No enlarged lymph nodes are seen in the mediastinum, clifton, or axilla. Trachea and eso phagus demonstrate no acute findings. The bilateral lungs are clear. There is no evidence f or pleural effusion or pneumothorax. The spleen has a heterogeneous appearance, likely due to contrast timing. There is bilateral gynecomastia. A left pacemaker is observed with lead s to the heart. There is fusion hardware of the lower cervical spine. The thoracic spine angelito ws no acute findings. There are old fractures of the posterior right ribs. IMPRESSION - No acute findings. Stable ectasia of ascending thoracic aorta that measures up to 4.1 cm. Thi s information was sent to the ER.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 Pathologist | | | | | At | Signature | + +-------+ + + + | Lipase | 23 | 0 - 60 U/L | [facility] | | | | | | [facility] | | | | | | MEDICAL | | | | | | [facility] - | | | | | | LABORATORY | | + +-------+ + + + + + | Specimen | + + | Blood | + + + + + + + | Performing | Address | City/State/Zipcode | Phone Number | | Organization | | | | + + + + + | [facility] | [address] | [place] | [phone] | | [facility] | | [address] | | | - LABORATORY | | | | + + + + + Comprehensive Metabolic Panel (03/18/2015 3:28 PM PDT) + + + + + + | Component | Value | Ref Range | Performed | Pathologist | | | | | At | Signature | + + + + + + | Na | 139 | 136 - 149 | [facility] | | | | | mmol/L | [facility] | | | | | | [facility] | | | | | | CENTER - | | | | | | LABORATORY | | + + + + + + | K | 4.1 | 3.5 - 5.1 | [facility] | [...] CO2 | 26 | 24 - 31 mmol/L | [facility] [...] + + + + | Glucose | 116 (H) | 70 - 109 mg/dL | [facility] | | | | [facility] | | [facility] | [facility] | | | | | | CENTER - | | | | | | LABORATORY | | + + + + + + | BUN | 18 | 7 - 18 mg/dL | [facility] | | | | | | [facility] | | | | | | [facility] | | | | | | CENTER - | | | | | | LABORATORY | | + + + + + + | Creatinine | 0.97 | 0.60 - 1.30 | [facility] | [...] | mL/min/1.73m2 | [facility] | | | [facility] | RATE,ESTIMATED | | MEDICAL | | | | mL/min/1.19t2Dpvi than | | CENTER - | | [...] | 9.5 | 8.3 - 10.5 | [facility] | | | | | mg/dL | [facility] | | | | | [...] 0.9 | 0.1 - 1.5 mg/dL | [facility] [...] + + | AST | 29 | 10 - 42 U/L | [facility] | | | | | | [facility] | [facility] | | | | [facility]ICAL | | | | | | CENTER - | | | | | | LABORATORY | | + + + + + + | ALT | 25 | 6 - 45 U/L | [facility] | | | | | | [facility] | | | | | | [facility]ICAL | | | | | | CENTER - | | | | | | LABORATORY | | + + + + + + | Alkaline | 56 | 40 - 110 U/L | [facility] | | | Phosphatase | | | [facility] | | | | | | [facility]ICAL | | | | | | CENTER - | | | | | | LABORATORY | | + + + + + + | Globulin | 2.4 | g/dL | [facility] | | | [...] + + + + | BUN/Creatin | 18.6 | | [facility] | | | ine [...] ST. | [address] | [place], [place] | [phone] | | [facility] | | [address] | | | - LABORATORY | | | | + + + + + CBC with Differential (03/18/2015 3:28 PM PDT) + +-------+ + + + | Component | Value | Ref Range | Performed | Pathologist | | | | | At | Signature | + +-------+ + + + | White Blood | 7.6 | 4.0 - 11.0 K/uL | [facility] | | | Cells | | | [facility] | | | | | | MEDICAL | | | | | | CENTER - | | | | | | LABORATORY | | + +-------+ + + + | Red Blood | 5.05 | 4.30 - 5.70 | [facility] | | | Cells | | M/uL | [facility] | | [facility] | | | [facility]ICAL | | | | | | CENTER - | | | | | | LABORATORY | | + +-------+ + + + | Hemoglobin | 17.1 | 13.5 - 18.0 | [facility] | | | | | g/dL | [facility] | | | [facility] | | [facility]ICAL | | | | | | CENTER - | | | | | | LABORATORY | | + +-------+ + + + | Hematocrit | 49.5 | 40.0 - 51.0 % | [facility] | | | | | | [facility] | | | | | | [facility]ICAL | | | | | | CENTER - | | | | | | LABORATORY | | + +-------+ + + + | MCV | 98.1 | 83.0 - 101.0 fL | [facility] | | | | | | [facility] | | | | [facility]ICAL | | | | | | CENTER - | | | | | | LABORATORY | | + +-------+ + + + | MCH | 33.9 | 28.0 - 35.0 pg | [facility] | | | | | | [facility] | | | | | | [facility] | | | | | | CENTER - | | | | | | LABORATORY | | + +-------+ + + + | MCHC | 34.5 | 32.0 - 36.0 | [facility] | [...] +-------+ + + + | Platelet | 175 | 140 - 440 K/uL | [facility] | | | Count | | | [facility] | | | | | | [facility]ICAL | | | | | | CENTER - | | | | | | LABORATORY | | + +-------+ + + + | MPV | 9.2 | fL | [facility] | | | | | | [facility] | | | | [facility]ICAL | | | | | | CENTER - | | | | | | LABORATORY | | + +-------+ + + + | % | 58.6 | 45.0 - 82.0 % | [facility] | | | Neutrophils | | | [facility] | | | | | | MEDICAL | | | | | | CENTER - | | | | | | LABORATORY | | + +-------+ + + + | % | 29.1 | 20.0 - 45.0 % | [facility] | | | Lymphocytes | | | [facility] | | | | | | MEDICAL | | | | | | CENTER - | | | | | | LABORATORY | | + +-------+ + + + | % Monocytes | 10.2 | 4.0 - 12.0 % | [facility] | | | | | | [facility] | | | | | | [facility]ICAL | | | | | | CENTER - | | | | | | LABORATORY | | + +-------+ + + + | % | 1.1 [...] +-------+ + + + | Absolute | 4.50 | 1.80 - 8.50 | [facility] | | | Neutrophils | | K/uL | [facility] | | | | | | MEDICAL | | | | | | CENTER - | | | | | | LABORATORY | | + +-------+ + + + | Absolute | 2.20 | 0.60 - 3.20 | [facility] | | | Lymphocytes | | K/uL | [facility] | | | | | | MEDICAL | | | | | | CENTER - | | | | | | LABORATORY | | + +-------+ + + + | Absolute | 0.80 | 0.00 - 1.00 | [facility] | [...] [address] | [place] | [phone] | | [facility] | | [address] | | | - LABORATORY | | | | + + + + + documented in this encounter Visit Diagnoses + + | Diagnosis | + + | Chest pain on exertion - Primary Chest pain, unspecified | + + | Dyspnea on exertion Other dyspnea and respiratory abnormality | + + | Essential hypertension Unspecified essential hypertension | + + | Acute chest pain Chest pain, unspecified | + + | Dizziness, nonspecific Dizziness and giddiness | + + | Mixed anxiety depressive disorder Dysthymic disorder | + + | PUD Peptic ulcer, unspecified site, unspecified as acute or chronic, without mention | | of hemorrhage, perforation, or obstruction | + + | Tobacco user Tobacco use disorder | + + | Chest pain. No ACS. Chest pain, unspecified | + + | Hypertension Unspecified essential hypertension | + + documented in this encounter Administered Medications + +--------+ +-------+------+------+ | Medication Order | MAR | Action | Dose | Rate | Site | | | Action | Date | | | | + +--------+ +-------+------+------+ | amLODIPine (NORVASC) tablet 10 | Given | 03/20/20 | 10 mg | | | | mg 10 mg, Oral, DAILY, First | | 15 8:26 | | | | | dose on Wed03/19/15 at 0900 | | AM PDT | | | | + +--------+ +-------+------+------+ +-------+ +-------+---+---+ | Given | 03/19/20 | 10 mg | | | | | 15 9:49 | | | | | | AM PDT | | | | +-------+ +-------+---+---+ +---+---+ | | | +---+---+ + +-------+ +--------+---+---+ | aspirin chewable tablet 162 mg | Given | 03/18/20 | 162 mg | | | | 162 mg, Oral, ONCE, 03/18/15 | | 15 8:06 | | | | | at 2014, For 1 dose | | PM PDT | | | | + +-------+ +--------+---+---+ +---+---+ | | | +---+---+ + +-------+ +-------+---+---+ | aspirin chewable tablet 81 mg | Given | 03/20/20 | 81 mg | | | | 81 mg, Oral, DAILY, First dose on | | 15 8:26 | | | | | 03/19/15 at 0900 | | AM PDT | | | | + +-------+ +-------+---+---+ +-------+ +-------+---+---+ | Given | 03/19/20 | 81 mg | | | | | 15 9:49 | | | | | | AM PDT | | | | +-------+ +-------+---+---+ +---+---+ | | | +---+---+ + +-------+ +--------+---+---+ | clonazePAM (klonoPIN) tablet | Given | 03/20/20 | 0.5 mg | | | | 0.5 mg 0.5 mg, Oral, 2 TIMES | | 15 8:35 | | | | | DAILY PRN, Anxiety, Starting Mon | | AM PDT | | | | | 03/18/15 at 2137 | | | | | | + +-------+ +--------+---+---+ +-------+ +--------+---+---+ | Given | 03/19/20 | 0.5 mg | | | | | 15 8:34 | | | | | | PM PDT | | | | +-------+ +--------+---+---+ | Given | 03/18/20 | 0.5 mg | | | | | 15 10:50 | | | | | | PM PDT | | | | +-------+ +--------+---+---+ +---+---+ | | | +---+---+ + +-------+ +--------+---+---+ | cloNIDine (CATAPRES) tablet 0.2 | Given | 03/20/20 | 0.2 mg | | | | mg 0.2 mg, Oral, 3 TIMES DAILY, | | 15 8:26 | | | | | First dose on Wed03/18/15 at | | AM PDT | | | | | 2200 | | | | | | + +-------+ +--------+---+---+ +-------+ +--------+---+---+ | Given | 03/19/20 | 0.2 mg | | | | | 15 2:05 | | | | | | PM PDT | | | | +-------+ +--------+---+---+ | Given | 03/19/20 | 0.2 mg | | | | | 15 9:49 | | | | | | AM PDT | | | | +-------+ +--------+---+---+ +---+---+ | | | +---+---+ + +-------+ +--------+---+---+ | iohexol (OMNIPAQUE 350) 350 | Given | 03/18/20 | 80 mLs | | | | mg/mL injection 80 mL 80 mL, | | 15 4:41 | | | | | Intravenous, ONCE PRN, Other, | | PM PDT | | | | | Starting 03/18/15 at 1640, For | | | | | | | 1 dose, Cat Scanner | | | | | | + +-------+ +--------+---+---+ +---+---+ | | | +---+---+ + +-------+ +-------+---+---+ | isosorbide mononitrate (IMDUR) | Given | 03/19/20 | 15 mg | | | | ER tablet 15 mg 15 mg, Oral, | | 15 9:50 | | | | | DAILY, First dose on Wed03/19/15 | | AM PDT | | | | | at 0900, Tablet may be cut where | | | | | | | scored but do not crush., | | | | | | + +-------+ +-------+---+---+ +---+---+ | | | +---+---+ + +-------+ +--------+---+---+ | metoprolol succinate | Given | 03/20/20 | 200 mg | | | | (TOPROL-XL) ER tablet 200 mg 200 | | 15 8:26 | | | | | mg, Oral, DAILY, First dose on | | AM PDT | | | | | Wed03/19/15 at 0900 | | | | | | + +-------+ +--------+---+---+ +-------+ +--------+---+---+ | Given | 03/19/20 | 200 mg | | | | | 15 9:50 | | | | | | AM PDT | | | | +-------+ +--------+---+---+ +---+---+ | | | +---+---+ + + + +--------+---+---+ | nitroglycerin (NITROSTAT) SL | Given by | 03/19/20 | 0.4 mg | | | | tablet 0.4 mg 0.4 mg, | Other | 15 7:33 | | | | | Sublingual, EVERY 5 MIN PRN, | | PM PDT | | | | | Chest pain, Starting 03/18/15 | | | | | | | at 2137, Maximum of 3 doses in 15 | | | | | | | minutes., | | | | | | + + + +--------+---+---+ +---+---+ | | | +---+---+ + +-------+ +-------+---+---+ | pantoprazole (PROTONIX) DR | Given | 03/18/20 | 40 mg | | | | tablet 40 mg 40 mg, Oral, DAILY, | | 15 10:50 | | | | | First dose on 03/18/15 at | | PM PDT | | | | | 2200, Do not cut or crush., | | | | | | + +-------+ +-------+---+---+ +---+---+ | | | +---+---+ + +-------+ +-------+---+---+ | pantoprazole (PROTONIX) DR | Given | 03/20/20 | 40 mg | | | | tablet 40 mg 40 mg, Oral, 2 | | 15 6:31 | | | | | TIMES DAILY BEFORE MEALS, First | | AM PDT | | | | | dose (after last modification) on | | | | | | | 03/19/15 at 2230, Do not cut | | | | | | | or crush., | | | | | | + +-------+ +-------+---+---+ +---+---+ | | | +---+---+ + +-------+ +-------+---+---+ | pravastatin (PRAVACHOL) tablet | Given | 03/19/20 | 40 mg | | | | 40 mg 40 mg, Oral, NIGHTLY, | | 15 8:34 | | | | | First dose on Wed03/18/15 at 2200 | | PM PDT | | | | + +-------+ +-------+---+---+ +---+---+ | | | +---+---+ + +------+ +--------+-------+---+ | sodium chloride 0.9% (NS) bolus | Push | 03/18/20 | 40 mLs | 2400 | | | 40 mL 40 mL, Intravenous, | | 15 4:41 | | mL/hr | | | Administer over 1 Minutes, ONCE | | PM PDT | | | | | PRN, for contrast study, Starting | | | | | | | 03/18/15 at 1640, For 1 dose, | | | | | | | May infuse at a different rate | | | | | | | per protocol., Cat Scanner | | | | | | + +------+ +--------+-------+---+ +---+---+ | | | +---+---+ + +---------+ +---------+-------+---+ | sodium chloride 0.9% (NS) bolus | New Bag | 03/18/20 | 500 mLs | 500 | | | 500 mL 500 mL, Intravenous, | | 15 3:32 | | mL/hr | | | Administer over 1 Hours, ONCE, | | PM PDT | | | | | 03/18/15 at 1530, For 1 dose | | | | | | + +---------+ +---------+-------+---+ +---+---+ | | | +---+---+ documented in this encounter
--- OUTSIDE RECORDS SUMMARY | ~2020-06-15 | XMS | Encounter Summary ---
Demographics + + + | Address | [address] | | | [place] [address] | + + + | Home Phone [...] Team Providers + +------+ + | Care Bolt Loader Name | Role | Phone | + +------+ + | Kirk French MD | PCP | | + +------+ + Reason for Visit + +--------+ + | Reason | Onset | Comments | | | Date | | + +--------+ + | Diarrhea (Adult) | 03/29/ | stomach cramps and liquid stool | | | 2019 | | + +--------+ + Encounter Details +--------+ + + + + | Date | Type | Department | Care Team | Description | +--------+ + + + + | 03/29/ | Telephone | [facility] | Emmanuel Daniel MD | Diarrhea (Adult) | | 2019 | | GASTROENTEROLOGY | [address], [place] | (stomach cramps and | | | | [address] | [address] [place], [place] | liquid stool) | | | | [address] [place], [place] | [address] | | | | | [address] | | | | | | [phone] | | | +--------+ + + + [...] Telephone Encounter - Kaylynn Copeland RN - 04/03/2019 2:53 PM PDTAttempted called to patient again today, attempted both numbers not in service elephone Encounter - Kaylynn Copeland RN - 0 03/31/2019 9:[address] order T4, TTG antibody, gastrin, lipase, VIP, calcitonin, 24-hour urine for [address] scan abdomen and pelvis. These have been ordered. U mirle to reach patient to notify him of these lab orders. Number temporarily disconnected.E lectronically signed by Kaylynn Copeland RN at 03/31/2019 9:14 AM PDTTeleKailyn Olivarez CMA - 03/29/2019 4:35 PM PDTPatient calls in, states he has had severe stomach cramps this morning and liquid stool this afternoon after eating a sandwich from [employer]. He states he takes the medication that dr. Daniel has asked him too ( Bentyl, Benadryl, metamucil and imodium but nothing is helping, he might have a normal bowel movement about 2 -3 days in a row, and then the diarrhea hits. He asks what should he do. I let patient know that his referral to [facility] was authorized and they should be calling him to schedule an appoi ntment. He still wants some advice from Dr. Romeroectronically signed by BREANN Corea at 03/29/2019 4:40 PM PDTdocumented in this encounter Plan of [...] | | | | | | [place] [address] | | | | | | [phone] | | | | | | | | +--------+ + + + + + +------+--------+ + + | Name | Type | Priori | Associated Diagnoses | Order Schedule | | | | ty | | | + +------+--------+ + + | T4, Free | Lab | Routin | Diarrhea, | 1 Occurrences | | | | e | unspecified type | starting 03/31/2019 | | | | | Abdominal cramping | until 06/29/2019 | | | | | Generalized | | | | | | abdominal pain | | + +------+--------+ + + | Lipase | Lab | Routin | Diarrhea, | Expected: 04/07/2019 | | | | e | unspecified type | (Approximate), | | | | | Abdominal cramping | Expires: 05/31/2019 | | | | | Generalized | | | | | | abdominal pain | | + +------+--------+ + + documented as of this encounter Visit Diagnoses + + | Diagnosis | + + | Diarrhea, unspecified type - Primary | + + | Abdominal cramping Abdominal pain, unspecified site | + + | Generalized abdominal pain Abdominal pain, generalized | + + documented in this encounter"
--- OUTSIDE RECORDS SUMMARY | ~2020-06-15 | XMS | Encounter Summary ---
Demographics + + + | Address | [address] | | | [place] [address] | + + + | Home Phone [...] Team Providers + +------+ + | Care Distance Learning Technician Name | Role | Phone | + +------+ + PCP | Unavailable | + +------+ + Encounter Details +--------+ + + + + | Date | Type | Department | Care Team | Description | +--------+ + + + + | 10/09/ | [facility] | [facility] | Jonathan, | | | 2008 | Encounter | [facility] | Martell Cr MD [address] | | | | | CENTER [address] | [address] | | | | | [place] | [place] [address] | | | | | [address] | [phone] | | | | | [phone] | | | +--------+ + + + [...] [place], | | | | | | [place] [address] | | | | | | [phone] | | | | | | | | +--------+ + + + + documented as of this encounter Visit Diagnoses Not on filedocumented in this encounter"
--- OUTSIDE RECORDS SUMMARY | ~2020-06-15 | XMS | Encounter Summary ---
Demographics + + + | Address | [address] | | | [place] [address] | + + + | Home Phone [...] Team Providers + +------+ + | Care Media Theorist And Author Of Name | Role | Phone | + +------+ + | Michael Amanda DO | PCP | | + +------+ + Encounter Details +--------+ + + + + | Date | Type | Department | Care Team | Description | +--------+ + + + + | 06/05/ | Abstract | [facility] [place] | Sil[place], | | | 2012 | | CARDIOLOGY [address] | [place] [address] | | | | | [place], | [place], | | | | | [place] [address] | [place] [address] | | | | | [phone] | [phone] | | | | | | | [...] | | | | | | [place] [address] | | | | | | [phone] | | | | | | | | +--------+ + + + + documented as of this encounter Visit Diagnoses Not on filedocumented in this encounter"
--- OUTSIDE RECORDS SUMMARY | ~2020-06-15 | XMS | Encounter Summary ---
Demographics + + + | Address | [address] | | | [place] [address] | + + + | Home Phone [...] Team Providers + +------+ + | Care Cobbler Upper Name | Role | Phone | + [...] | | | | [place] | [phone] | | | | | [address] | | | | | | [phone] | | | +--------+ + + + [...] + + + +---------+ + + | Crawford-3 Fatty | CAPS, one capsule by | [...] | | | | | | [place] [address] | | | | | | [phone] | | | | | | | [...] + + | Kalpesh Brown Conversion - 07/05/2019 4:32 AM PDT This is a non-reportable procedure | | without a radiologist report and isused for image storage only | + + documented in this encounter Visit Diagnoses + + | Diagnosis | + + | Pain Generalized pain | + + documented in this encounter"
--- OUTSIDE RECORDS SUMMARY | ~2020-06-15 | XMS | Encounter Summary ---
Demographics + + + | Address | [address] | | | [place] [address] | + + + | Home Phone [...] Team Providers + +------+ + | Care Shear Tender Name | Role | Phone | [...] + + | 08/31/ | Refill | [facility] | Kirk French | Medication Refill | | 2019 | | [facility] | MD Bre[address] | | | | | [facility] [address] | | | | | [address] | [place] [address] | | | | | [place], [place] | [phone] | | | | | [address] | | | | | | [phone] | | | +--------+--------+ + + + [...] | | | | | | [place] [address] | | | | | | [phone] | | | | | | | | +--------+ + + + + documented as of this encounter Visit Diagnoses Not on filedocumented in this encounter"
--- OUTSIDE RECORDS SUMMARY | ~2020-06-15 | XMS | Encounter Summary ---
Demographics + + + | Address | [address] | | | [place] [address] | + + + | Home Phone [...] Team Providers + +------+ + | Care Cattle Killer Name | Role | Phone | + +------+ + | Michael Amanda DO | PCP | | + +------+ + Encounter Details +--------+ + + + + | Date | Type | Department | Care Team | Description | +--------+ + + + + | 06/26/ | Hospital | [facility] | Michael Amanda, | Diplopia | | 2012 | Encounter | [facility] | DO [address] | | | | | [address] [place] | [place], [place] | | | | | [place], [place] | [address] | | | | | [address] | | | | | | [phone] | | | +--------+ + + + [...] + + + +---------+ + + | [place]-3 Fatty | CAPS, one capsule by | [...] + +---------+ + + | diltiazem | Take 1 capsule by | 30 | 6 | 02/16/20 | | | (CARDIZEM CD) 120 mg | mouth Daily. | capsule | | 13 | 3 | | 24 hr capsule | | [...] + + +---------+ + + | oxyCODONE | Take 30 mg by mouth | | 0 | | | | (ROXICODONE) 30 MG | every 4 hours as | | | | 3 | | immediate release | needed. | | | | | [...] [address] | | | | | | [address] [place], | | | | | | [place] [address] | | | | | | [phone] | | | | | | | | +--------+ + + + + documented as of this encounter Procedures + +--------+ + + + | Procedure Name | Priori | Date/Time | Associated Diagnosis | Comments | | | ty | | | | + +--------+ + + + | SEDIMENTATION RATE | Routin | 06/26/2013 | | Results for this | | | e | 3:39 PM | | procedure are in the | | | | PDT | | results section. | + +--------+ + + + | C-REACTIVE PROTEIN | Routin | 06/26/2013 | | Results for this | | | e | 3:39 PM | | procedure are in the | | | | PDT | | results section. | + +--------+ + + + | TSH | Routin | 06/26/2013 | | Results for this | | | e | 3:39 PM | | procedure are in the | | | | PDT | | results section. | + +--------+ + + + | SEDIMENTATION RATE | Routin | 06/26/2013 | [facility] | Results for this | | | e | 3:07 PM | | procedure are in the | | | | PDT | | results section. | + +--------+ + + + | C-REACTIVE PROTEIN | Routin | 06/26/2013 | [facility] | Results for this | | | e | 3:07 PM | | procedure are in the | | | | PDT | | results section. | + +--------+ + + + | TSH | Routin | 06/26/2013 | [facility] | Results for this | | | e | 3:07 PM | | procedure are in the | | | | PDT | | results section. | + +--------+ + + + documented in this encounter Results C-Reactive Protein (06/26/2013 3:39 PM PDT) + + + + + + | Component | Value | Ref Range | Performed | Pathologist | | | | | At | Signature | + + + + + + | CRP | 6.2Comment: Levels >8.0 | <8.0 mg/L | [facility] | | | | mg/L indicate possible | | [facility] | | | | infection, trauma, | | MEDICAL | | | | cardiac infarct or | | CENTER - | | | | neoplastic | | LABORATORY | | | | proliferation. | | | | + + + + + + + + | Specimen | + + | | + + + + + + + | Performing | Address | City/State/Zipcode | Phone Number | | Organization | | | | + + + + + | [facility] | [address] | [place] | [phone] | | [facility] | | [address] | | | - LABORATORY | | | | + + + + + | [facility] | [address] | [place], [place] | | | [facility] | | [address], [facility] | | | - LABORATORY | | | | + + + + + TSH (06/26/2013 3:39 PM PDT) + + + + + + | Component | Value | Ref Range | Performed | Pathologist | | | | | At | Signature | + + + + + + | TSH | 1.23Comment: Testing | 0.34 - 5.60 | [facility] | | | | performed on the Javid | uIU/mL | [facility] | | | | [employer] | | MEDICAL | | | | Analyzer. | | CENTER - | | | [...] [address] | [place] | [phone] | | [facility] | | [address] | | | - LABORATORY | | | | + + + + + | [facility] | [address] | [place] | | | [facility] | | [address], [facility] | | | - LABORATORY | | | | + + + + + Sedimentation Rate (06/26/2013 3:39 PM PDT) + +-------+ + + + | Component | Value | Ref Range | Performed | Pathologist | | | | | At | Signature | + +-------+ + + + | Erythrocyte | 4 | 0 - 20 mm/hr | [facility] | | | | | [...] + | [facility] | [address] | [place], [place] | [phone] | | [facility] | | [address] | | | - LABORATORY | | | | + + + + + | [facility] | [address] | [place], [place] | | | [facility] | | [id number] [place] [address] | | | - LABORATORY | | | | + + + + + C-Reactive Protein (06/26/2013 3:07 PM PDT) + + + + + + | Component | Value | Ref Range | Performed | Pathologist | | | | | At | Signature | + + + + + + | CRP | 6.2Comment: Levels >8.0 | <8.0 mg/L | [facility] | | | | mg/L indicate possible | | [facility] | | | | infection, | | MEDICAL | | | | trauma,cardiac infarct | | CENTER - | | | | or neoplastic | | LABORATORY | | | | proliferation. | | | | + + + + + + + + | Specimen | + + | Blood specimen | | (specimen) | + + + + + + + | Performing | Address | City/State/Zipcode | Phone Number | | Organization | | | | + + + + + | [facility] | [address] | [place], [place] | [phone] | | [facility] | | [address] | | | - LABORATORY | | | | + + + + + | [facility] | [address] | [place], [place] | | | [facility] | | [address], [facility] | | | - LABORATORY | | | | + + + + + Sedimentation Rate (06/26/2013 3:07 PM PDT) + +-------+ + + + | Component | Value | Ref Range | Performed | Pathologist | | | | | At | Signature | + +-------+ + + + | Erythrocyte | 4 | 0 - 20 mm/hr | [facility] | | | | | | [facility] | | | [facility] | | [...] [address] | [place] | [phone] | | [facility] | | [address] | | | - LABORATORY | | | | + + + + + | [facility] | [address] | [place] | | | [facility] | | [address] | | | - LABORATORY | | | | + + + + + TSH (06/26/2013 3:07 PM PDT) + + + + + + | Component | Value | Ref Range | Performed | Pathologist | | | | | At | Signature | + + + + + + | TSH | 1.23Comment: Testing | 0.34 - 5.60 | [facility] | | | | performed on the [facility] | uIU/mL | [facility] | | | | [facility] | | MEDICAL | | | | Analyzer. | | CENTER - | | | [...] + | [facility] | [address] | [place] | [phone] | | [facility] | | [address] | | | - LABORATORY | | | | + + + + + | [facility] | [address] | [place], [place] | | | [facility] | | [id number] [place] [address] | | | - LABORATORY | | | | + + + + + documented in this encounter Visit Diagnoses + + | Diagnosis | + + | Diplopia | + + documented in this encounter"
--- OUTSIDE RECORDS SUMMARY | ~2020-06-15 | XMS | Encounter Summary ---
Demographics + + + | Address | [address] | | | [place] [address] | + + + | Home Phone [...] Team Providers + +------+ + | Care Theater Education Teacher Name | Role | Phone | + +------+ + | Kirk French MD | PCP | | + +------+ + Reason for Visit +--------+--------+ + | Reason | Onset | Comments | | | Date | | +--------+--------+ + | Other | 06/05/ | | | | 2020 | | +--------+--------+ + Encounter Details +--------+ + + + + | Date | Type | Department | Care Team | Description | +--------+ + + + + | 06/05/ | Telephone | [facility] | Kirk French | Other | | 2020 | | [facility] | MD [address] | | | | | [facility] [address] | | | | | [address] | [place] [address] | | | | | [place], [place] | [phone] | | | | | [address] | | | | | | [phone] | | | +--------+ + + + [...] encounter Miscellaneous Notes Telephone Encounter - Geri Bear, Clinical Science Liaison - 06/06/2020 9:18 AM PDTCan this b e redirected or does he need new referral elephone Encounter - Camelia Wade S - 06/05/2020 3:5 4 PM PDTPatient, is calling regarding Other and would like a call back. Additional Call Details: Patient calling regarding pain clinic referral. He is requesting to have referral sent to provider he saw 2 years ago, he does not want to go to where he was referred to recently. Patient does not remember the providers name, he states Dr. French was the one that referred him there. Call back at [phone].. If this is a symptom based call, was patient offered triage? Not Applicable If this is a symptom based call and you were unable to immediately transfer the call to a lorraine bellamy foreign student adviser teacher was caller made aware that if at any time he feels it is an emergency they angelito uld call 911 or go to the nearest emergency room? not applicable documented in this encounter Plan of Treatment [...] | | | | | | [place] [address] | | | | | | [phone] | | | | | | | | +--------+ + + + + documented as of this encounter Visit Diagnoses Not on filedocumented in this encounter"
--- OUTSIDE RECORDS SUMMARY | ~2020-06-15 | XMS | Encounter Summary ---
Demographics + + + | Address | [address] | | | [place] [address] | + + + | Home Phone [...] Team Providers + +------+ + | Care Preparation Supervisor Canning Name | Role | Phone | + [...] + + | 02/21/ | Office | [facility] | Silvia, | Coronary artery | | 2019 | Visit | CARDIOLOGY [address] | disease involving | | | | [place], | [place], | [place] coronary | | | | [place] [address] | [place] [address] | artery of [place] | | | | [phone] | [phone] | heart without angina | | | [...] of non-critical coronary artery d isease involving [place] coronary artery of [place] heart without angina pectoris, essential h ypertension, [...] stay active. He enjoys hunting in his [place]. He has not had any chest pain [...] Preventative health care Coronary artery disease involving [place] coronary artery of [place] heart without angina pectoris Cannabis abuse, daily [...] 3RD DOSE, CALL 911 100 tablet 3 [place]-3 Fatty Acids (SALMON OIL-1000 PO) CAPS, one capsule by mouth daily twice daily ondansetron (ZOFRAN ODT) 4 mg disintegrating tablet Take 4 mg by mouth. ONE TOUCH DELICA LANCETS [facility] Check glucose as needed for hypoglycemia 100 [...] was found Confirmed by ANGELA MARADIAGA MD ([id number]) on 01/03/2019 8:10:39 PM LAB RESULTS reviewed during visit today primarily from [facility]: LIPID Lab Results Component Value Date TRIG [...] BNP 15 01/02/2019 I reviewed records from [facility] for angiogram results on 019 which is summarized in the HPI. RESULTS- I reviewed reports from [facility]: No results found. Left heart catheterization done [...] ASSESSMENT: 1. Non-critical Coronary artery disease involving [place] coronary artery of [place] heart [facility] angina pectoris: A.Normal exercise sestamibi stress [...] Symptoms with moderate exertion of t he [place] [employer] functional class. Heart failure stage [...] [facility] on 01/30/2013.Patient had spontaneous PVC's fro m [...] to go back in 3 days to [place] for an attempt of ablation under general [...] this chart may have been created with [employer] voice recognition software. Occasi onal wrong-word or [...] | | | | | | [place] [address] | | | | | | [phone] | | | | | | | | +--------+ + + + + documented as of this encounter Visit Diagnoses + + | Diagnosis | + + | Coronary artery disease involving [place] coronary artery of [place] heart without | | angina pectoris - Primary | + + | Symptomatic PVCs Other premature beats | + + | Essential hypertension Unspecified essential hypertension | + + documented in this encounter
--- OUTSIDE RECORDS SUMMARY | ~2020-06-15 | XMS | Encounter Summary ---
Demographics + + + | Address | [address] | | | [place] [address] | + + + | Home Phone [...] Team Providers + +------+ + | Care Ash Conveyor Operator Name | Role | Phone | + +------+ + | Kirk French MD | PCP | | + +------+ + Reason for Visit +--------+--------+ + | Reason | Onset | Comments | | | Date | | +--------+--------+ + | Other | 02/21/ | ? referral | | | 2019 | | +--------+--------+ + Encounter Details +--------+ + + + + | Date | Type | Department | Care Team | Description | +--------+ + + + + | 02/21/ | Telephone | [facility] | Emmanuel Daniel MD | Other (? referral) | | 2019 | | GASTROENTEROLOGY | [address], [place] | | | | | [address] | [address] [place], [place] | | | | | [address] [place], [place] | [address] | | | | | [address] | | | | | | [phone] | | | +--------+ + + + [...] this encounter Miscellaneous Notes Telephone Encounter - Grisel Sprague RN - 03/07/2019 12:[address] Dr. Dom marquez review chart to determine if willing to send referral since his patient. elephone Encounter - Grisel Sprague RN - 03/03/2019 1:30 PM PDTSent message to Dr. Wooten on status of this message; routing t o Dr. Daniel RN since his patient. elephone Encounter - Grisel Sprague RN - 02/21/2019 10:08 AM PDTPatient came b y office requesting Dr. Daniel reconsider sending referral to [facility] because they will not acce pt referral from PCP. [facility] told him outside referrals as far away as he is need to come from speciality, and he has been waiting 3 weeks just to get referral sent; he is taking lomotil QID (BID does nothing), and Bentyl daily TID, and still having fecal incontinence with, "ma ssive water coming out. When I get urge I have only seconds to get to toilet, I have had man y accidents lately. I sneeze and have accident, I stepped into my truck and had accident. I have been having 4-5 of them before noon on most days, I can't leave house laura this." He is taking metamucil 2-3x daily which has helped some. He realizes he has had this since middle school and stress/anxiety always exacerbate his symptoms. He has modified his diet, and avoi ds sugar. He does like dairy products so advised he try using non-dairy milk instead for 2 w eeks to see if provides relief, he agreed; I discussed stress relief with him and he said he finds great enjoyment with hunting, working in his [place], and taking [place]. I advised trying to incorporate more of those things into his routine to provide stress relief, and hopefully this will decrease his fecal incontinence episodes, he agreed, and said now with weather better he can do much more of this; we discussed behavioral modifi cations to help with episodes so he can leave house. He brings extra pair of clothes with hi m in truck; we discussed asking PCP to review medication list to see if any medications coul d be contributing to his diarrhea, he says they have done this; I told him I would have Dr. Wooten review his chart to see if any medication changes can be made to help until Dr. Daniel returns, and that when Dr. Daniel returns on Wednesday we can request referral to [facility] for IBS, he agreed. He said likely they will tell him same thing as Dr. Daniel, but he would like [facility] to discuss with them. Phone note on Dr. Wooten desk for review. documented in this e ncounter Plan of [...] | | | | | | [place] [address] | | | | | | [phone] | | | | | | | | +--------+ + + + + documented as of this encounter Visit Diagnoses Not on filedocumented in this encounter
--- OUTSIDE RECORDS SUMMARY | ~2020-06-15 | XMS | Encounter Summary ---
Demographics + + + | Address | [address] | | | [place] [address] | + + + | Home Phone [...] Team Providers + +------+ + | Care Instrumentation And Controls Technician Name | Role | Phone | [...] | | | ureteral | | MD [address] | | | | | calculus | | [address] [place] | | | | | Procedures | | [place] | | | | | [place] | | [address] Phone: | | | | | CYSTO/URETER | | [phone] | | | | | O | | Fax: | | | | | W/LITHOTRIPS | | [phone] | | | | | Y &INDWELL [...] | +--------+ + + + + | 04/13/ | Anesthesia | [facility] | Jay Benjamin MD | | | 2019 | Event | MED CTR [facility] | [address] | | | | | [address] | [place] | | | | | [place] | [address] | | | | | [address] | | | | | | [phone] | | | +--------+ + + + + Anesthesia Record + + + + + | Procedure Name | Responsible | Anesthesia Start | Anesthesia Stop Time | | | Anesthesiologist | Time | | + + + + + | Cystoscopy, Left | Jay Benjamin MD | 04/13/19808 | 04/13/19926 | | ureteroscopy with | | | | | laser lithotripsy, | | | | | Left ureteral stent | | | | | placement (Left | | | | | Ureter) | | | | + + + + + +----+---+ + + | Da | T | Event | Comment | | te | i | | | | | m | | | | | e | | | +----+---+ + + | 05 | 0 | | | | /2 | 7 | | | | 3/ | 3 | | | | 20 | 7 | | | | 19 | | | | +----+---+ + + | | 0 | An Checkout | Pre-use anesthesia machine/equipment checkout. | | | 8 | | | | | 0 | | | | | 9 | | | +----+---+ + + | | 0 | An Start | Reassessment prior to anesthesia induction/procedure. | | | 8 | | | | | 0 | | | | | 9 | | | +----+---+ + + | | 0 | Antibiotic | | | | 8 | Given | | | | 0 | | | | | 9 | | | +----+---+ + + | | 0 | Preoxygenat | | | | 8 | ed | | | | 1 | | | | | 1 | | | +----+---+ + + | | 0 | An | | | | 8 | Induction | | | | 1 | | | | | 6 | | | +----+---+ + + | | 0 | An | | | | 8 | Intubation | | | | 1 | | | | | 6 | | | +----+---+ + + | | 0 | Mar Lin | | | | 8 | 43-degrees | | | | 2 | | | | | 7 | | | +----+---+ + + | | 0 | First | | | | 8 | Inc/Proc St | | | | 2 | | | | | 8 | | | +----+---+ + + | | 0 | Mar Lin off | | | | 9 | | | | | 1 | | | | | 8 | | | +----+---+ + + | | 0 | Breathing | | | | 9 | Spontaneous | | | | 1 | ly | | | | 8 | | | +----+---+ + + | | 0 | Extubated | | | | 9 | Deep | | | | 2 | | | | | 4 | | | +----+---+ + + | | 0 | an stop | | | | 9 | data | | | | 2 | | | | | 4 | | | +----+---+ + + | | 0 | An Stop | Patient handed off to recovery nurse. | | | 2 | | | | | 7 | | | +----+---+ + + +------+ | Meds | +------+ + +--------+ | Name | Total | + +--------+ | propofol (DIPRIVAN) injection | 300 mg | | (bolus) (20 mL) | | + +--------+ | HYDROmorphone | 0.4 mg | + +--------+ | dexamethasone | 10 mg | + +--------+ | ondansetron | 4 mg | + +--------+ | midazolam | 4 mg | + +--------+ | lactated ringers (LR) infusion | 800 mL | + +--------+ + + | Name | + + | N2O Flow Rate (L/Min) | + + | O2 Flow Rate (L/Min) | + + | Insp O2 | + + | Exp SEV | + + | Air Flow Rate (L/Min) | + + + + | No blood administrations on file. 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 | | | ker | | | | +--------+ + + + | Nephro | 04/13/19; 0940; left flank; other | 04/13/19939 by | | | stomy | (see comments) (expected blood | Mariama Carty RN | | | Tube | tinged urine); ureteral stent | | | | | left with strings protruding and | | | | | taped to penis; (pt to remove in | | | | | 5 days/ or return to clinic) | | | +--------+ + + + | Periph | 04/13/19; 07; Right; Hand; | 04/13/19 07 by | 04/13/19 121 by | | eral | [id number] catheter system; | Dominga Steen RN | Mariama Carty RN | | IV | 20 gauge, 1 1/4 in length; 1; | | | | | left forearm, tip in tact.; | | | | | distraction, intradermal | | | | | injection, tolerated well; no | | | | | longer indicated; short term use; | | | | | 04/13/19; 1219 | | | +--------+ + + + | Airway | Placement Date: 04/13/19; | 04/13/19815 by | 04/13/19923 by | | | Placement Time: 815 (created via | Jay Benjamin MD | Jay Benjamin MD | | | procedure documentation); | | | | | Attempts: 1; Airway Type: | | | | | laryngeal mask; Size: 4; Trauma: | | | | | none; Placement Check: exhaled | | | | | CO2 detection device, bilateral | | | | | chest rise; Removal Date: | | | | | 04/13/19; Removal Time: 923 | | | +--------+ + + + | Wound | 04/13/19; 917; Incision; penis; | 04/13/19917 by | 04/13/191214 by | | | 04/13/19; 1214 | Roma Campbell RN | Mariama Carty RN | +--------+ + + + documented in this encounter Social History + +--------+ +--------+ + | [...] + + documented as of this encounter OR Notes Anesthesia Postprocedure Evaluation - Jay Benjamin MD - 04/13/2019 12:03 PM PDT ANESTHESIA POSTANESTHESIA EVALUATION Moe Sanchez 59 y.o. male 1960 [id number] Procedure(s) Cystoscopy, Left ureteroscopy with laser lithotripsy, Left ureteral stent rg cement (Left Ureter) Cooperates? Yes Mental Status Performs simple tasks. Respiratory Satisfactory - Airway patent (self maintained). Cardiovascular Satisfactory - Blood pressure and heart rate acceptable Temperature Satisfactory Pain Satisfactory N/V Control Satisfactory Hydration Satisfactory - No signs of dehydration Complications None apparent Vitals Value Taken Time Temp 36.6 C (97.9 F) 04/13/2019 9:26 Pulse 72 04/13/2019 11:41 Resp 15 04/13/2019 10:40 BP 114/67 04/13/2019 11:34 Arterial Line BP Arterial Line BP 2 SpO2 95 % 04/13/2019 11:41 Vitals shown include unvalidated device data. Electronically signed by Jay Benjamin MD 04/13/2019 12:03 TRIOS HEALTHElectronically signed by Jay Benjamin MD at 2018 12:03 PM PDTAnesthesia Procedure Notes - Jay Benjamin MD - 04/13/2019 8:28 AM PDTAss ociated Order(s): AirwayAnesthesia Airway Placement 04/13/2019 8:16 Preprocedure check: patient identified, oxygen, airway assessed, patient reassessment prior to induction, airway equipment checked and suction Rapid Sequence Induction: no Attempts: 1 Airway type: laryngeal mask Size: 4 Cuffed: cuffed Trauma: none Tube placement verification: bilateral chest rise and carbon dioxide detection Performing provider: Jay Benjamin MD Please see intraoperative grid for any additional medication documentation. nesthesia Preprocedure Evaluation - Jay Benjamin MD - 04/13/2019 7:31 AM PDTFormatting of this note might be di fferent from the original. ANESTHESIA PREANESTHESIA EVALUATION Moe Sanchez 59 y.o. male 1960 [id number] Procedure(s): Cystoscopy, Left ureteroscopy with laser lithotripsy, Left ureteral stent rg cement (Left Ureter) Medical,anesthesia, drug, allergy histories reviewed, NPO status verified. ECG reviewed. Labs reviewed. (-) perioperative beta-salima/statin not given/taken Reason s Beta Salima not given/taken:last dose within 24 hours. . Review of Systems / Med History Anesthesia History No anesthesia complications except where noted below. Cardiovascular (+) catheterization, echocardiogram, pacemaker (+) Dysrhythmias: (+) hypertension, (+) cor onary artery disease of [place] artery. . Pulmonary (+) sleep apnea. (+) Sleep apnea history/interventions: known and CPAP. Stop Bang Score: 5. (-) tobacco use. (+) ex-smoker: 2019. Gastrointestinal/Hepatic (+) hypercholesterolemia. (+) acid reflux. Endocrine (+) obesity: Neuromuscular (+) back pain, CVA, chronic pain. Psychology (+) substance abuse and opiates and other. (+) psychiatric history of bipolar disorder and depression. Physical Exam Airway MP II, TM >3 FB, Mouth opening >2 FB. Neck: full ROM, extends >30 degrees. Jaw protrus ion normal. Dental ; (+) implants(s)/bridges(s)/caps(s). CV Rhythm regular. Rate normal. (-) murmur. Pulm Clear to auscultation bilaterally. Neuro Grossly normal. Anesthesia Plan ASA 3 (due to CAD) Type: General. Induction: Intravenous. Potential problems: None anticipated. Monitors: Standard ASA monitors. Consent statement:Anesthetic plan, alternatives, risks and benefits discussed with patient and spouse. Risks discussed included (but were not limited to): respiratory events, heart problems,. Consenting person understands and agrees to proceed . PARQ. Electronically Signed by: Jay Benjamin MD ESig date/time: 04/13/2019 7:31 documented in this enco unter Plan of [...] | | | | | | [place] [address] | | | | | | [phone] | | | | | | | | +--------+ + + + + documented as of this encounter Procedures + +--------+ + + + | Procedure Name | Priori | Date/Time | Associated Diagnosis | Comments | | | ty | | | | + +--------+ + + + | ANE AIRWAY NOTE | Routin | 04/13/2019 | | Results for this | | | e | 8:28 AM | | procedure are in the | | | | PDT | | results section. | + +--------+ + + + documented in this encounter Results Airway (04/13/2019 8:28 AM PDT) + + + | Narrative | Performed At | + + + | Jay Benjamin MD 04/13/2019 8:28 Anesthesia Airway Placement | | | 04/13/2019 8:16 Preprocedure check: patient identified, oxygen, | | | airway assessed, patient reassessment prior to induction, airway | | | equipment checked and suction Rapid Sequence Induction: no Attempts: | | | 1 Airway type: laryngeal mask Size: 4 Cuffed: cuffed Trauma: none | | | Tube placement verification: bilateral chest rise and carbon dioxide | | | detection Performing provider: Jay Benjamin MD Please | | | see intraoperative grid for any additional medication documentation. | | + + + + + | Procedure Note | + + | Jay Benjamin MD - 04/13/2019 8:28 AM PDT Anesthesia Airway Placement04/13/2019 | | 8:16Preprocedure check: patient identified, oxygen, airway assessed, patient | | reassessment prior to induction, airway equipment checked and suctionRapid Sequence | | Induction: noAttempts: 1Airway type: laryngeal maskSize: 4Cuffed: cuffedTrauma: noneTube | | placement verification: bilateral chest rise and carbon dioxide detectionPerforming | | provider: Alberta Keene see intraoperative grid for any additional medication | | documentation. | |Size: 4 | |Cuffed: cuffed | |Trauma: none | |Tube placement verification: bilateral chest rise and carbon dioxide detection | |Performing provider: Jay Benjamin MD | | | | | | | |Please see intraoperative grid for any additional medication documentation. | + + documented in this encounter Visit Diagnoses Not on filedocumented in this encounter Administered Medications + +--------+ +-------+------+------+ | Medication Order | MAR | Action | Dose | Rate | Site | | | Action | Date | | | | + +--------+ +-------+------+------+ | dexamethasone (PF) 10 mg/mL | Given | 04/13/20 | 10 mg | | | | injection Intravenous, PRN, | | 19 8:23 | | | | | Starting Wed04/13/19 at 0823, | | AM PDT | | | | | Anesthesia Intra-op | | | | | | + +--------+ +-------+------+------+ +---+---+ | | | +---+---+ + +-------+ +--------+---+---+ | HYDROmorphone (DILAUDID) 2 | Given | 04/13/20 | 0.4 mg | | | | mg/mL injection Intravenous, | | 19 8:21 | | | | | PRN, Starting Wed04/13/19 at | | AM PDT | | | | | 0821, Anesthesia Intra-op | | | | | | + +-------+ +--------+---+---+ +---+---+ | | | +---+---+ + +---------+ +---+---+---+ | lactated ringers (LR) infusion | New Bag | 04/13/20 | | | | | at 10-100 mL/hr, Intravenous, | | 19 8:09 | | | | | CONTINUOUS, Starting [facility] 04/13/19 | | AM PDT | | | | | at 0700, TKO., Pre-op | | | | | | + +---------+ +---+---+---+ +---+---+ | | | +---+---+ + +-------+ +------+---+---+ | midazolam (VERSED) 1 mg/mL | Given | 04/13/20 | 2 mg | | | | injection Intravenous, PRN, | | 19 8:24 | | | | | Starting [facility] 04/13/19 at 0808, | | AM PDT | | | | | Anesthesia Intra-op | | | | | | + +-------+ +------+---+---+ +-------+ +------+---+---+ | Given | 04/13/20 | 2 mg | | | | | 19 8:08 | | | | | | AM PDT | | | | +-------+ +------+---+---+ +---+---+ | | | +---+---+ + +-------+ +------+---+---+ | ondansetron (ZOFRAN) injection | Given | 04/13/20 | 4 mg | | | | Intravenous, PRN, Starting Talia | | 19 8:23 | | | | | 04/13/19 at 0823, Anesthesia | | AM PDT | | | | | Intra-op | | | | | | + +-------+ +------+---+---+ +---+---+ | | | +---+---+ + +-------+ +--------+---+---+ | propofol (DIPRIVAN) injection | Given | 04/13/20 | 300 mg | | | | Intravenous, PRN, Starting Talia | | 19 8:16 | | | | | 04/13/19 at 0816, Anesthesia | | AM PDT | | | | | Intra-op | | | | | | + +-------+ +--------+---+---+ +---+---+ | | | +---+---+ documented in this encounter"
--- OUTSIDE RECORDS SUMMARY | ~2020-06-15 | XMS | Encounter Summary ---
Demographics + + + | Address | [address] | | | [place] [address] | + + + | Home Phone [...] Team Providers + +------+ + | Care Gift Shop Assistant Name | Role | Phone | + +------+ + | Michael Amanda DO | PCP | | + +------+ + Reason for Visit +--------+--------+ + | Reason | Onset | Comments | | | Date | | +--------+--------+ + | Other | 09/12/ | records faxed | | | 2012 | | +--------+--------+ + Encounter Details +--------+ + + + + | Date | Type | Department | Care Team | Description | +--------+ + + + + | 09/12/ | Telephone | [facility] | Stanley Geri, | Other (records | | 2012 | | CARDIOLOGY [address] | MANAGER CONVENTION [address] | faxed) | | | | [address] [place], | [place], [place] | | | | | [place] [address] | [address] | | | | | [phone] | | | +--------+ + + + [...] this encounter Miscellaneous Notes Telephone Encounter - Julianne Rowell - 09/12/2013 10:52 AM PDTInformation has been faxed , they will contact patient to schedule appointment documented in this encounter Plan of Treatment [...] | | | | | | [place] [address] | | | | | | [phone] | | | | | | | | +--------+ + + + + documented as of this encounter Visit Diagnoses Not on filedocumented in this encounter"
--- OUTSIDE RECORDS SUMMARY | ~2020-06-15 | XMS | Encounter Summary ---
Demographics + + + | Address | [address] | | | [place] [address] | + + + | Home Phone [...] Providers + +------+ + | Care Sales Driver Name | Role | Phone | + +------+ + PCP | Unavailable | + +------+ + Encounter Details +--------+ + + + + | Date | Type | Department | Care Team | Description | +--------+ + + + + | 10/13/ | Hospital | [facility] | | | | 2007 | Encounter | MED CTR EMERGENCY | | | | | | [address] | | | | | | [place] | | | | | | [address] | | | | | | [phone] | | | +--------+ + + + [...] | | | | | | [place] [address] | | | | | | [phone] | | | | | | | | +--------+ + + + + documented as of this encounter Visit Diagnoses Not on filedocumented in this encounter"
--- OUTSIDE RECORDS SUMMARY | ~2020-06-15 | XMS | Encounter Summary ---
Demographics + + + | Address | [address] | | | [place] [address] | + + + | Home Phone [...] Team Providers + +------+ + | Care Carrier Driver Name | Role | Phone | [...] | disease involving | | | | [place], | [place], | [place] coronary | | | | [place] [address] | [place] [address] | artery of [place] | | | | [phone] | [phone] | heart without angina | | | [...] | | | | | | [place] [address] | | | | | | [phone] | | | | | | | [...] | | | | | | SYDNI CAGLE MD | | | | | | ([phone]) on 06/23/2016 | | | | | [...] + + | Coronary artery disease involving [place] coronary artery of [place] heart without | | angina pectoris - Primary | + + | Essential hypertension with goal blood pressure less than 130/80 | + + documented in this encounter"
--- OUTSIDE RECORDS SUMMARY | ~2020-06-15 | XMS | Encounter Summary ---
Demographics + + + | Address | [address] | | | [place] [address] | + + + | Home Phone | | + + + | Preferred Language | Unknown | + + + | Marital Status | | + + + | Bahai Affiliation | 1013 | + + + | Race | Unknown | + + + | Ethnic Group | Unknown | + + + Author + + + | Author | [facility] | | | and [place] | + + + | Organization | [facility] | | | [...] Team Providers + +------+ + | Care Artist Woodblock Name | Role | Phone | + +------+ + | Kirk French MD | PCP | | + +------+ + Reason for Visit + +--------+ + | Reason | Onset | Comments | | | Date | | + +--------+ + | Medication Orders | 05/01/ | | | | 2020 | | + +--------+ + Encounter Details +--------+--------+ + + + | Date | Type | Department | Care Team | Description | +--------+--------+ + + + | 05/01/ | Refill | [facility] | Kirk French | Medication Orders | | 2020 | | [facility] | MD [address] | | | | | [facility] | | | | | [address] | [place] [address] | | | | | [place], [place] | [phone] | | | | | [address] | | | | | | [phone] | | | +--------+--------+ + + + [...] documented as of this encounter Miscellaneous Notes Addendum Note - Hailey Girard, Lithopone Mill Worker - 05/02/2020 2:30 PM PDT Add ended by: HAILEY GIRARD on: 05/02/2020 02:30 PM Modules accepted: Orders elephone Encounter - Sia Haq Ronald - 05/02/2020 2:22 PM PDTFormatting of is note might be different from the original. eduardo, is returning call for Medication Orders and would like a call back. Additional Call Details: Patient states he was taking 75 mg of lyrica. Patient would like provider to prescribe lyrica 75 mg Patient would also like provider to prescribe Dicolfena Sodium 75 mg TBEC. Patient states t he dicolfena is for his broken left ankle. Please send both medication to [id number] - [place], [place] - [address] [phone] (Phone) Sia Vasquez Ext 4460 elephone Encounter - Hailey Girard, Lithopone Mill Worker - 05/02/2020 8:42 AM PDTLeft VM to patient to call back and let us know what strength of Lyrica he is on so provider can prescribed. E lectronically signed by Hailey Padron Lithopone Mill Worker at 05/02/2020 8:43 AM PDTTelephone Encounter - Kirk French MD - 05/02/2020 8:03 AM PDTOk as requestedEl ectronically signed by Kirk French MD at 05/02/2020 8:03 AM PDTTelephone Encounter - Geri Bear Lithopone Mill Worker - 05/01/2020 1:50 PM PDTPlease adviseElectronically si gned by Geri Bear Lithopone Mill Worker at 05/01/2020 1:50 PM PDTTelephone Encounter - Kailyn Gomes - 05/01/2020 1:48 PM PDTFred, is calling regarding Medication Orders and would like a call back. Additional Call Details: Patient states he is no longer going to the pain management clinic and is requesting for Dr. French to start prescribing Lyrica to help with the pain. Yasmany crowe call him back at [phone] If this is a symptom based call, was patient offered triage? Not Applicable If this is a symptom based call and you were unable to immediately transfer the call to a lorraine bellamy sales promotion coordinator was caller made aware that if at [...] | | | | | | [place] [address] | | | | | | [phone] | | | | | | | | +--------+ + + + + documented as of this encounter Visit Diagnoses + + | Diagnosis | + + | Left ankle pain, unspecified chronicity - Primary | + + documented in this encounter"
--- OUTSIDE RECORDS SUMMARY | ~2020-06-15 | XMS | Encounter Summary ---
Demographics + + + | Address | [address] | | | [place] [address] | + + + | Home Phone [...] Team Providers + +------+ + | Care As400 Administrator Name | Role | Phone | [...] + + | 12/21/ | Office | [facility] | [place], | Chest pain (Primary | | 2013 | Visit | CARDIOLOGY [address] | [address] [place] [address] | Dx); Symptomatic | | | | [place] [facility], | [place], | PVCs; | | | | [place] [address] | [place] [address] | Hyperlipidemia; | | | | [phone] | [phone] | Hypertension; | | | | | [...] this time to see a specialist in [place] and he was to follow up with [...] MOUTH EVERY DAY 30 table t 5 [place]-3 Fatty Acids (SALMON OIL-1000 PO) CAPS, [...] ventricular arrhythmia performed by Dr. Gambino at [facility] on 01/30/2013. Patient had spontaneous PVCs [...] to go back in 3 days to [place] for an attempt of ablation under general [...] weeks. He is in class II of [place] [employer] funct ional class. There are [...] made to ensure accuracy; however, inadvertent computerized medication tech errors may be pre sent. documented in [...] | | | | | | [place] [address] | | | | | | [phone] | | | | | | | [...] of unspecified type of vessel, | | [place] or graft | + + documented in this encounter
--- OUTSIDE RECORDS SUMMARY | ~2020-06-15 | XMS | Encounter Summary ---
Demographics + + + | Address | [address] | | | [place] [address] | + + + | Home Phone [...] Team Providers + +------+ + | Care Cooler Conveyor Loader Name | Role | Phone | + +------+ + | Kirk French MD | PCP | | + +------+ + Reason for Visit +--------+--------+ + | Reason | Onset | Comments | | | Date | | +--------+--------+ + | Other | 12/23/ | Needs to know what he can eat today | | | 2018 | | +--------+--------+ + Encounter Details +--------+ + + + + | Date | Type | Department | Care Team | Description | +--------+ + + + + | 12/23/ | Telephone | [facility] | Emmanuel Daniel MD | Other (Needs to know | | 2017 | | GASTROENTEROLOGY | [address], [place] | what he can eat | | | | [address] [place] | [address] [place], [place] | today) | | | | [address] [place] | [address] | | | | | [address] | | | | | | [phone] | | | +--------+ + + + [...] this encounter Miscellaneous Notes Telephone Encounter - Lisa Pisano RN - 12/23/2017 9:06 AM PSTCalled patient to a dvise that he shouldn't have any foods today as he is on a clear liquid diet today (day befo re colonoscopy); however, to assist with his low blood sugar he should try drinking soda's, juices like white grape or apple juice, kyro syrup, honey, jello, hard candy's. He states h e has glucose tablets as well. He verbalized understanding; we reviewed bowel prep instruct ions and check in time at 10:30. Electronically signed by Lisa Pisano RN at 2017 9:22 AM PSTTelephone Encounter - Nataly Pratt Kelsey - 12/23/2017 8:39 AM PSTPatient maria luz led to find out what he's able to eat today, prior to procedure. Please call to discuss, has low blood sugar. document ed in this encounter Plan of Treatment +--------+ [...] | | | | | | [place] [address] | | | | | | [phone] | | | | | | | | +--------+ + + + + documented as of this encounter Visit Diagnoses Not on filedocumented in this encounter"
--- OUTSIDE RECORDS SUMMARY | ~2020-06-15 | XMS | Encounter Summary ---
Demographics + + + | Address | [address] | | | [place] [address] | + + + | Home Phone [...] Team Providers + +------+ + | Care Barrow Worker Name | Role | Phone | + +------+ + | Kirk French MD | PCP | | + +------+ + Encounter Details +--------+ + + + + | Date | Type | Department | Care Team | Description | +--------+ + + + + | 04/05/ | Imaging | [facility] | Provider, | | | 2019 | Exam | [facility] EXTER[facility] | [address] | | | | | IMAGING [address] | [address] | | | | | [address] [place] | [place] [address] | | | | | [place] [address] | | | | | | [phone] | | | +--------+ + + + [...] | | | | | | [place] [address] | | | | | | [phone] | | | | | | | [...]
--- OUTSIDE RECORDS SUMMARY | ~2020-06-15 | XMS | Encounter Summary ---
Demographics + + + | Address | [address] | | | [place] [address] | + + + | Home Phone [...] Team Providers + +------+ + | Care Payroll And Benefits Manager Name | Role | Phone | + +------+ + | Kirk French MD | PCP | | + +------+ + Reason for Visit +--------+--------+ + | Reason | Onset | Comments | | | Date | | +--------+--------+ + | Other | 08/04/ | 4 week event monitor | | | 2018 | | +--------+--------+ + Encounter Details +--------+ + + + + | Date | Type | Department | Care Team | Description | +--------+ + + + + | 08/04/ | Telephone | [facility] [place] | [place], | Other (4 week event | | 2017 | | CARDIOLOGY [address] | PARISA [place] [address] | monitor ) | | | | [place], | [place], | | | | | [place] [address] | [place] [address] | | | | | [phone] | [phone] | | | | | | | [...] Notes Telephone Encounter - Heidi Tejeda - 08/08/2018 1:03 PM PDTPatient rescheduled to elephone Encounte r - Heidi Tejeda - 08/08/2018 10:38 AM PDTLeft voicemail to call back and reschedule OC/THR with Janeen Vega. Event monitor comes off 08/18. elephone Encounter - Toyin Bello RN - 1:57 PM PDTFred came to the clinic asking when his 4 week event monitor can be zeynep en off. It was placed on 07/21/18 and is not scheduled to be taken off until 08/18/18. Relayed this to the patient. Okay per patient. Patient has a follow-up appointment scheduled with Nanette BARNHART on 08/16/18, appointment needs to be rescheduled to 08/25/18 as the event monitor report ne eds to be read and interpreted 1 week prior to appointment. Will route message to front end software engineer to call and reschedule appointment. ...........................................TOYIN ANDRADE RN on 08/04/18 at 14:10 documented in this e ncounter Plan of [...] | | | | | | [place] [address] | | | | | | [phone] | | | | | | | | +--------+ + + + + documented as of this encounter Visit Diagnoses Not on filedocumented in this encounter"
--- OUTSIDE RECORDS SUMMARY | ~2020-06-15 | XMS | Encounter Summary ---
Demographics + + + | Address | [address] | | | [place] [address] | + + + | Home Phone [...] | + + +---------+ + | Nadine pSencevarsha | ECON | Unknown | | + + +---------+ + Care Team Providers + +------+ + | Care Dowel Pin Worker Name | Role | Phone | + +------+ + | Kirk French MD | PCP | | + +------+ + Reason for Visit +--------+--------+ + | Reason | Onset | Comments | | | Date | | +--------+--------+ + | Other | 05/30/ | medication and swelling | | | 2020 | | +--------+--------+ + Encounter Details +--------+ + + + + | Date | Type | Department | Care Team | Description | +--------+ + + + + | 05/30/ | Telephone | [facility] [place] | [place], | Other (medication | | 2020 | | CARDIOLOGY [address] | PARISA [place] [address] | and swelling) | | | | [place], | [place], | | | | | [place] [address] | [place] [address] | | | | | [phone] | [phone] | | | | | | | [...] Telephone Encounter - Darlene Tirado RN - 05/31/2020 10:33 AM PDTFred is notified, he st ates that he spoke with his PCP who prescribed it and he is having decrease gradually and th en go off completely. He will follow up with PCP at this time ............................. ..............Darlene Tirado RN, on 05/31/20 at 10:34 AM PDT elephone Encounter - Janeen Vega ARNP - 05/31/2020 8:27 AM PDTOk, let him know to let us know if he s welling does not start coming down on it's own. He can call us back Wednesday and see how the s welling has progressed with him off Lyrica. Electronically signed by: PARISA Lomas 05/31/2020 8:28 AM PDT elephone Keisha Adams RN - 05/30/2020 3:48 PM PDTPatient calls to update that he is no longer taking Lyrica. He reports that he is "swelling up like a pig" and he even decrease d his sodium intake. He is refusing to take this medication any longer. PCP is aware. Routing to Janeen to review............................................Keisha Farnsworth RN, on 05/30/20 at 4:06 PM PDT documented in this encounter Plan of [...] | | | | | | [place] [address] | | | | | | [phone] | | | | | | | | +--------+ + + + + documented as of this encounter Visit Diagnoses Not on filedocumented in this encounter
--- OUTSIDE RECORDS SUMMARY | ~2020-06-15 | XMS | Encounter Summary ---
Demographics + + + | Address | [address] | | | [place] [address] | + + + | Home Phone [...] Team Providers + +------+ + | Care Room Service Waiter Name | Role | Phone | + +------+ + | Kirk French MD | PCP | | + +------+ + Encounter Details +--------+ + + + + | Date | Type | Department | Care Team | Description | +--------+ + + + + | 01/21/ | Anesthesia | [facility] | Jarett Barakat | | | 2020 | Event | [facility] | [address], [address] | | | | | [address] | [place] | | | | | [place], [place] | [address] | | | | | [address] | | | | | | [phone] | | | +--------+ + + + + Anesthesia Record + + + + + | Procedure Name | Responsible | Anesthesia Start | Anesthesia Stop Time | | | Anesthesiologist | Time | | + + + + + | COLONOSCOPY (N/A | | | | | Rectum) | | | | + + + + + + + | No events on file. | + + +------+ | Meds | +------+ + + + No medications | on file. | + + + + + | No agents on file. | + + + + | No blood administrations on file. 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 | 03/19/15 0912 by | | | ker | | | | +--------+ + +---------+ | Nephro | 04/13/19; 0940; left flank; other | 04/13/19 0940 by | | | stomy | (see comments) (expected blood | Mariama Carty RN | | | Tube | tinged urine); ureteral stent | | | | | left with strings protruding and | | | | | taped to penis; (pt to remove in | | | | | 5 days/ or return to clinic) | | | +--------+ + +---------+ documented in this encounter Social History + [...] as of this encounter OR Notes Anesthesia Preprocedure Evaluation - Jarett Barakat MD - 01/21/2020 7:43 PM PSTForma tting of this note might be different from the original. ANESTHESIA PREANESTHESIA EVALUATION Moe Sanchez 59 y.o. male 1960 [id number] Procedure(s): COLONOSCOPY (N/A Rectum) Review of Systems / Med History Cardiovascular (+) pacemaker (Medtronic) (+) hypertension (+) Dysrhythmias: (+) coronary artery disease. . Pulmonary (+) sleep apnea.(+) Sleep apnea history/interventions: known.(+) tobacco use (Qu it 2012).Stop Bang Score: 5. Gastrointestinal/Hepatic (+) hypercholesterolemia. (+) acid reflux. Endocrine (+) obesity: BMI (30-39) Neuromuscular (+) back pain, CVA, chronic pain, fibromyalgia. Psychology (+) substance abuse. Physical Exam Airway MP II, TM >3 FB, Mouth opening >2 FB. Neck: full ROM, extends >30 degrees. Dental grossly normal except where noted below. CV Rhythm regular. Rate Normal. (-) murmur. Pulm Clear to auscultation bilaterally. Neuro grossly normal. Anesthesia Plan ASA: 3 Type: TIVA. Induction: Intravenous. Potential problems: None anticipated. Monitors: Standard ASA monitors. Postop Pain Management: Consent statement: Anesthetic plan, alternatives, risks and benefits discussed with patient. Consenting person understands and agrees to proceed. PARQ. All questions answered in pre-op area before proceeding to GI suite - agrees to plan of TIV A with possibility of advanced airway if clinically indicated. Risk of aspiration and hypoxi a with endoscopy under TIVA explicitly discussed and patient desires to proceed. Patient Active Problem List: Hyperlipidemia, mixed Bipolar disorder Smoker Hypertension Fibromyalgia Low back pain Chronic pain syndrome Thrombocytopenia FATIGUE ABDOMINAL PAIN, UNSPECIFIED SITE NECK PAIN, CHRONIC Syncope Obstructive sleep apnea on CPAP Ulcerative colitis Sinoatrial node dysfunction with symptomatic bradycardia Pacemaker HEPATITIS B PUD FATTY LIVER DISEASE Multiple substance abuse DEPRESSION Hypoglycemia Symptomatic PVCs Tachycardia Preventative health care Coronary artery disease involving oneida coronary artery of oneida heart without angina pectoris Marijuana use Ascending thoracic aortic aneurysm Pacemaker reprogramming/check DO NOT DELETE Anxiety about health Diarrhea Weight loss Beta Blockers - Daily Use Depression with anxiety H/O Lumbar Fusion - "6 levels" per pt Blood glucose elevated Decreased potassium in the blood Neuralgia Abnormal serum level of lipase Irritable bowel syndrome Obesity Left ureteral calculus Rectal bleeding Diarrhea, unspecified type Unintentional weight loss Opioid type dependence, continuous Allergy to opioid analgesic . documented in thi s encounter Plan of [...] [place], | | | | | | [place] [address] | | | | | | [phone] | | | | | | | | +--------+ + + + + documented as of this encounter Visit Diagnoses Not on filedocumented in this encounter
--- OUTSIDE RECORDS SUMMARY | ~2020-06-15 | XMS | Encounter Summary ---
Demographics + + + | Address | [address] | | | [place] [address] | + + + | Home Phone [...] Team Providers + +------+ + | Care Bobbin Cleaning Machine Operator Name | Role | Phone [...] | | | | [place] | [phone] | | | | | [address] | | | | | | [phone] | | | +--------+ + + + [...] + + + +---------+ + + | [place]-3 Fatty | CAPS, one capsule by | [...] | | | | | | [place] [address] | | | | | | [phone] | | | | | | | [...]
--- OUTSIDE RECORDS SUMMARY | ~2020-06-15 | XMS | Encounter Summary ---
Demographics + + + | Address | [address] | | | [place] [address] | + + + | Home Phone [...] | | | [address] [place] | [place] [address] | | | | | [place] [address] | | | | | | [phone] | | | +--------+ + + + [...] | | | | | | [place] [address] | | | | | | [phone] | | | | | | | [...]
--- OUTSIDE RECORDS SUMMARY | ~2020-06-15 | XMS | Encounter Summary ---
Demographics + + + | Address | [address] | | | [place] [address] | + + + | Home Phone [...] Providers + +------+ + | Care Supervisor Claims Name | Role | Phone | + [...] [place] | | | | | | [address] Phone: | | | | | | Phone: | [phone] | | | | | | [phone] | Fax: | | | | | | Fax: | [phone] | | | | | | [phone] | | +--------+ + + + + + Reason for Visit + + + | Reason | Comments | + + + | Medicare Wellness | | + + + Encounter Details +--------+---------+ + + + | Date | Type | Department | Care Team | Description | +--------+---------+ + + + | 07/25/ | Office | [facility] | Michael Amanda, | Preventative health | | 2014 | Visit | [facility] | DO [address] | care (Primary Dx); | | | | [address] | [place] | Cannabis abuse, | | | | [place], [place] | [address] | daily use; Urinary | | | | [address] | | frequency; | | | | [phone] | | Incontinence; | | | | [...] needed for Chest pain. 25 tablet 12 [place]-3 Fatty Acids (SALMON OIL-1000 PO) CAPS, one capsule by mouth daily twice daily ONE TOUCH DELICA LANCETS [facility] [place] Check glucose as needed for hypoglycemia 100 [...] as Nurse Practitioner (Cardiology) FENG Chou (Physician Cashier Gambling) Current Medicare Suppliers: [facility] - [place], [place] - [address] [place] [address] [facility] - [place] - [address] [place] [address] HEALTH RISK ASSESSMENT: : The patient or [...] no kevin in the usual sections in [employer]. documented in this en counter Miscellaneous Notes [...] W | | | | | | [place], | | | | | | [place] [address] | | | | | | [phone] | | | | | | | [...] Primary Routine general medical examination at a [facility] | | care facility | + + [...]
--- OUTSIDE RECORDS SUMMARY | ~2020-06-15 | XMS | Encounter Summary ---
Demographics + + + | Address | [address] | | | [place] [address] | + + + | Home Phone [...] Team Providers + +------+ + | Care Knife Sharpener Name | Role | Phone | + [...] + + | 12/29/ | Office | [facility] | [place], | Ascending thoracic | | 2017 | Visit | CARDIOLOGY [address] | [place] [address] | aortic aneurysm | | | | [place], | [place], | ([facility]) (Primary Dx); | | | | [place] [address] | [place] [address] | Coronary artery | | | | [phone] | [phone] | disease involving | | | | | | lumbee coronary | | | | | | artery of lumbee | | | | | | heart [...] of non-critical coronary artery d isease involving lumbee coronary artery of lumbee heart without angina pectoris, essential h ypertension, [...] time, he went to the ER in [facility] with chest pain at the end [...] Preventative health care Coronary artery disease involving lumbee coronary artery of lumbee heart without angina pectoris Cannabis abuse, daily [...] by mouth every evening 90 tablet 3 [facility] [place] [facility] [employer] (OSTEO BI-FLEX/5-LOXIN ADVANCED [...] 3RD DOSE, CALL 911 100 tablet 3 [place]-3 Fatty Acids (SALMON OIL-1000 PO) CAPS, one capsule by mouth daily twice daily ONE TOUCH DELICA LANCETS [facility] [place] Check glucose as [...] was found Confirmed by SYDNI SINGLETARY MD ([id number]) on 06/23/2016 2:08:15 PM LAB RESULTS reviewed during visit today primarily from [facility]: LIPID Lab Results Component Value Date [...] PLTEX 129* 05/12/2016 I reviewed records from [facility] for office visit on 09/01/2016 which [...] He is in class I of the [place] [employer] functional class. On physical examination there are no signs of fl uid overload. 2. Non-critical Coronary artery disease involving lumbee coronary a rtery of lumbee heart without angina pectoris: A. Normal exercise [...] ventricular arrhythmia performed by Dr. Gambino at [facility] on 01/30/2013. Patient had spontaneous PVCs from [...] to go back in 3 days to [place] for an attempt of ablation under general [...] is a normal stable device function. Estimated DoveConvienei ng battery longevity is 5 years.. 5. [...] this chart may have been created with [employer] voice recognition software. Occasi onal wrong-word or [...] | | | | | | [place] [address] | | | | | | [phone] | | | | | | | | +--------+ + + + + documented as of this encounter Visit Diagnoses + + | Diagnosis | + + | Ascending thoracic aortic aneurysm (HCC) - Primary Thoracic aneurysm without mention | | of rupture | + + | Coronary artery disease involving lumbee coronary artery of lumbee heart without | | angina pectoris | + + | Essential hypertension with goal blood pressure less than 130/80 | + + | Hyperlipidemia, mixed Mixed hyperlipidemia | + + documented in this encounter
--- OUTSIDE RECORDS SUMMARY | ~2020-06-15 | XMS | Encounter Summary ---
Demographics + + + | Address | [address] | | | [place] [address] | + + + | Home Phone [...] Team Providers + +------+ + | Care Cisco Engineer Name | Role | Phone | [...] | Ascending | [place], | [address] | | | | | aortic | PARISA [place] | [place], | | | | | aneurysm | [address] | [place] | | | | | ([facility]) | [place] | [address] | | | | | Procedures | [place], | Phone: | | | | | ECHO | [place] | [phone] | | | | | Complete | [address] | Fax: | | | | | | Phone: | [phone] | | | | | | [phone] | | | | | | | Fax: | | | | | | | [phone] | | +--------+--------+ + + + + [...] | Ascending | [place], | [address] | | | | | aortic | PARISA [place] | [place], | | | | | aneurysm | [address] | [place] | | | | | ([facility]) | [place] | [address] | | | | | Procedures | [place], | Phone: | | | | | ECHO | [place] | [phone] | | | | | Complete | [address] | Fax: | | | | | | Phone: | [phone] | | | | | | [phone] | | | | | | | Fax: | | | | | | | [phone] | | +--------+--------+ + + + + Encounter Details +--------+ + + + + | Date | Type | Department | Care Team | Description | +--------+ + + + + | 05/01/ | Hospital | [facility] | Silvia, | Ascending thoracic | | 2020 | Encounter | MED CTR ECHO [address] | Janeen MARINE SCIENTIST [address] | aortic aneurysm | | | | [place] | [place], | ([facility]); Ascending | | | | [place] [address] | [place] [address] | aortic aneurysm | | | | [phone] | [phone] | ([facility]) | | | | | | | [...] tablet by | 90 | 3 | 09/26/20 | | | (NORVASC) 5 mg | mouth Daily. | tablet | | 19 | | | tablet | | | | | | + + + +---------+ + + | Ascorbic Acid | Take 1,000 mg by | | 0 | 03/09/20 | | | (VITAMIN C) 1000 MG | mouth Daily. | | | 12 | | | tablet | | | | | | + + + +---------+ + + | aspirin 81 MG EC | Take 81 mg by mouth | | 0 | | | | tablet | Daily. | | | | | + + + +---------+ + + | atorvaSTATin | Take 1 tablet by | 90 | 3 | 05/01/20 | | | (LIPITOR) 80 MG | mouth nightly. | tablet | | 20 | | | tabletIndications: | | | | | | | Coronary artery | | | | | | | disease involving | | | | | | | [place] coronary | | | | | | | artery of [place] | | | | | | | heart without angina | | | | | | | pectoris, | | | | | | | Hyperlipidemia, | | | | | | | mixed | | | | | | + + + +---------+ + + | Cinnamon Bark POWD | Take by mouth. | | 0 | | | + + + +---------+ + + | CYANOCOBALAMIN PO | Take by mouth. | | 0 | | | + + + +---------+ + + | cyclobenzaprine | | | 0 | 07/28/20 | | | (FLEXERIL) 10 mg | | | | 19 | | | tablet | | | | | | + + + +---------+ + + | diclofenac | Take 1 tablet by | 60 | 1 | 05/02/20 | | | (VOLTAREN) 75 mg EC | mouth 2 times daily. | tablet | | 20 | | | tabletIndications: | | | | | | | Left ankle pain, | | | | | | | unspecified | | | | | | | chronicity | | | | | | + + + +---------+ + + | dicyclomine | Take 1 tablet by | 270 | 3 | 09/26/20 | | | (BENTYL) 20 MG | mouth 3 times daily | tablet | | 19 | 0 | | tablet | as needed. Before [...] + + + +---------+ + + | ELDERBERRY PO | Take by mouth. | | 0 | | | + + + +---------+ + + | Glucose Blood | Test up to 1 times a | | 0 | 01/29/20 | | | (BLOOD GLUCOSE TEST | day as needed ( One | | | 18 | | | STRIPS) STRP | touch ) | | | | | + + + +---------+ + + | HYDROmorphone | take 1 tablet by | | 0 | 04/30/20 | | | (DILAUDID) 4 MG | mouth every 4 hours | | | 20 | | | tablet | if needed for pain | | | | | + + + +---------+ + + | | Take 1,000 mg by | | 0 | 01/29/20 | | | Methylsulfonylmethan | mouth. | | | 18 | | | e 1000 MG TABS | | | | | | + + + +---------+ + + | metoprolol | Take 1.5 tablets by | 135 | 3 | 01/01/20 | | | succinate | mouth Daily. | tablet | | 20 | | | (TOPROL-XL) 100 mg | | [...] + +---------+ + + | nitroglycerin | PLACE ONE TABLET | 250 | 0 | 08/30/20 | | | (NITROSTAT) 0.4 mg | UNDER THE TONGUE | tablet | | 19 | | | SL tablet | EVERY 5 MINUTES | | | | | | | NEEDED FOR CHEST | | | | | | | PAIN | | | | | + + + +---------+ + + | [place]-3 Fatty | CAPS, one capsule by | [...] + + +---------+ + + | | | | 0 | 04/17/20 | | | oxyCODONE-acetaminop | | | | 20 | | | hen (PERCOCET) 5-325 | | | | | | | mg per tablet | | | | | | + + + +---------+ + + | | Use up to tid prn | 57 g | 3 | 01/11/20 | | | pramoxine-hydrocorti | | | | 20 | | | sone cream | | | | | | + + + +---------+ + + | pregabalin | Take 1 capsule by | 90 | 1 | 05/02/20 | | | (LYRICA) 75 mg | mouth 2 times daily. | capsule | | 20 | | | capsule | | | | | | + + + +---------+ + + | promethazine | 1po tid prn | 90 | 3 | 01/11/20 | | | (PHENERGAN) 12.5 MG | | tablet | | 20 | | | tablet | | | | | | + + + +---------+ + + | PYRIDOXINE HCL PO | Take by mouth. | | 0 | | | + + + +---------+ [...] + +---------+ + + | valACYclovir | TAKE ONE TABLET BY | 180 | 0 | 01/23/20 | | | (VALTREX) 1 g tablet | MOUTH TWICE A DAY | tablet | | 20 | | + + + +---------+ + + | clonazePAM | TAKE ONE TABLET BY | 90 | 0 | 03/22/20 | | | (KLONOPIN) 1 mg | MOUTH THREE TIMES A | tablet | | 20 | 0 | | tablet | DAY NEEDED FOR | | | | | | | ANXIETY | | | | | + + + +---------+ + + | | TAKE ONE TABLET BY | 120 | 5 | 11/03/20 | | | diphenoxylate-atropi | MOUTH FOUR TIMES A | tablet | | 19 | 0 | | ne (LOMOTIL) | DAY NEEDED FOR | | | | | | 2.5-0.025 mg per | DIARRHEA. | | | | | | tablet | | | | | | + + + +---------+ + + | hyoscyamine | PLACE 1 TABLET UNDER | 60 | 1 | 10/26/20 | | | (LEVSIN) 0.125 mg SL | THE TONGUE EVERY 4 | tablet | | 19 | 0 | | tablet | HOURS NEEDED FOR | | | | | | | CRAMPING, DIARRHEA, | | | | | | | GI SPASMS | | | | | + + [...] | | | | | | [place] [address] | | | | | | [phone] | | | | | | | | +--------+ + + + + documented as of this encounter Procedures + +--------+ + + + | Procedure Name | Priori | Date/Time | Associated Diagnosis | Comments | | | ty | | | | + +--------+ + + + | ECHO COMPLETE | Routin | 05/01/2020 | Ascending aortic | Results for this | | | e | 9:14 AM | aneurysm (HCC) | procedure are in the | | | | PDT | | results section. | + +--------+ + + + documented in this encounter Results ECHO Complete (05/01/2020 9:14 [...] | | | | | | [place] | | | | | + +--------+ [...]
--- OUTSIDE RECORDS SUMMARY | ~2020-06-15 | XMS | Encounter Summary ---
Demographics + + + | Address | [address] | | | [place] [address] | + + + | Home Phone [...] Team Providers + +------+ + | Care K 9 Handler/ Deputy Name | Role | Phone | + +------+ + | Kirk French MD | PCP | | + +------+ + Reason for Visit + + + | Reason | Comments | + + + | New Patient | | + + + | Abdominal Pain | | + + + Evaluate & Treat (Routine) +--------+--------+ + + + + | Status | Reason | Specialty | Diagnoses / | Referred By | Referred To | | | | | Procedures | Contact | Contact | +--------+--------+ + + + + | Closed | | Gastroenterol | Diagnoses | Manolo, | Harri, | | | | ogy | Unspecified | Kirk Guidry, | Emmanuel Fitzpatrick MD | | | | | abdominal | [address] | [address], | | | | | pain | [address] | [address] | | | | | Chronic pain | [address] | [place], | | | | | syndrome | [place], [place] | [place] [address] | | | | | Procedures | [address] | Phone: | | | | | Office Visit | Phone: | [phone] | | | | | | [phone] | Fax: | | | | | | Fax: | [phone] | | | | | | [phone] | | +--------+--------+ + + + + Encounter Details +--------+---------+ + + + | Date | Type | Department | Care Team | Description | +--------+---------+ + + + | 12/02/ | Office | [facility] | Emmanuel Daniel MD | Diarrhea, | | 2018 | Visit | GASTROENTEROLOGY | [address], [place] | unspecified type | | | | [address] [place] | [address] [place], [place] | (Primary Dx); Weight | | | | [address] [place], [place] | [address] | loss, | | | | [address] | | unintentional; | | | | [phone] | | Generalized | | | | | | abdominal pain; | | | | | | Pacemaker | +--------+---------+ + + + Social [...] + | Blood Pressure | 102/80 | 12/02/2017 2:18 PM | | | | | PST | | + + + + + | Pulse | 74 | 12/02/2017 2:18 PM | | | | | PST | | + + + + + | Temperature | - | - | | + + + + + | Respiratory Rate | 16 | 12/02/2017 2:18 PM | | | | | PST | | + + + + + | Oxygen Saturation | - | - | | + + + + + | Inhaled Oxygen | - | - | | | Concentration | | | | + + + + + | Weight | 111.3 kg (245 lb 6 | 12/02/2017 2:18 PM | | | | oz) | PST | | + + + + + | Height | 193 cm (6' 4") | 12/02/2017 2:18 PM | | | | | PST | | + + + + + | Body Mass Index | 29.87 | 12/02/2017 2:18 PM | | | | | PST [...] documented as of this encounter H&P Notes Emmanuel Daniel MD - 12/02/2017 2:30 PM PST Moe Sanchez is an 57 y.o. male. The patient is seen for evaluation of diarrhea, weight loss Outside records are reviewed. Patient reports that his lost 60 pounds over the past 4 months. He attributes same as food "passing right through me". Usually has increased stool urgency 20 minutes after eating. He'll have such urgent evacuation now he'll have some incontinence. Patient denies any noct urnal symptoms. He was in [facility] 2 years ago and [place] country due to severe diarrhea. He has had some increasing bowel difficulties since th at time. He has tried parasitic cleanses 2 with no real improvement of his symptoms. Pat ient has been tried on Bentyl and Lomotil with continued diarrhea. He drinks a protein drin k twice a day and that is firmed up his stools somewhat. Patient reports cramping in the up per abdomen which radiates down through to the lower abdomen. The patient has not had any b lood or mucus in the stool denies any melena. He was on lipomas seen for weight loss report s that he had to discontinue same prior to this series of diarrhea due to abdominal pain and cramping. Patient reports that his symptoms are most improvement with peppermint and ginge r tea with lemon. Probiotics were of no benefit. CBC and CMP are within normal limits exce pt for polycythemia with a hemoglobin of 17.5. Patient report have been negative for open p arasite ultrasound of the abdomen 2016 was within normal limits the patient does have a p ast history of upper endoscopy colonoscopy done by myself for 2006 with minor peptic ulcer d isease and normal colonoscopy. There is tenderness at that time were done for reflux and hi story of ulcerative colitis. There is a family history of colon cancer in the patient's fat her past medical history is remarkable for obstructive sleep apnea pacemaker placement history of narcotic addiction currently off of the same for chronic pain fibromyalgia bipolar disord er hypertension Past Medical History: Diagnosis Date Abdominal pain, unspecified site 07/17/2011 Anginal pain (HCC) Anxiety depression Bipolar 1 disorder (HCC) BIPOLAR DISORDER UNSPECIFIED Bladder troubles CAD CENTRAL SLEEP APNEA CONDS CLASSIFIED ELSEWHERE 12/15/2010 Chest pain Chronic neck pain Chronic pain syndrome Depression Drug addiction in remission (HCC) heroin Fatigue 09/15/2010 FATTY LIVER DISEASE Fibromyalgia HEPATITIS B HTN (hypertension) Hypercholesterolemia Hyperlipidemia Hypertension Hypoglycemia Insomnia Lower back injury 1980 1984 Lumbago Neck pain, chronic 09/24/2011 Neurological disorder Nondependent opioid abuse in remission Obstructive sleep apnea 08/26/2010 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 Peptic ulcer disease Premature ventricular contraction Preventative health care 06/26/2013 LAST PSA:12/16/2010 RESULT:0.14 LAST COLONOSCOPY:02/05/2009 RESULTnormal exam Prostate troubles PUD Sinoatrial node dysfunction (HCC) SINUS BRADYCARDIA Sleep apnea Stroke (HCC) SUBSTANCE ABUSE, MULTIPLE Syncope 10/09/2010 Tachycardia Thoracic ascending aortic aneurysm (HCC) Thrombocytopenia (HCC) 08/26/2010 Tobacco user Tuberculosis Ulcerative colitis (HCC) Allergies: Allergies Allergen Reactions Clarithromycin Palpitations Rapid heartbeat Duloxetine Other (See Comments) Blood pressure and heart increase/palpitations Prednisone Other (See Comments) Patient was "Homicide" when he took a high dose Morphine Itching Fentanyl Itching and Rash Hydrocodone Itching and Anxiety Agitation and grumpiness Penicillins Rash Tramadol Hcl Itching Active Problems: * No active hospital problems. * Blood pressure 102/80, pulse 74, resp. rate 16, height 1.93 m (6' 4"), weight 111.3 kg (245 lb 6 oz). Review of Systems Constitutional: Positive for weight loss. HENT: Positive for hearing loss and tinnitus. Cardiovascular: Positive for chest pain and palpitations. Gastrointestinal: Positive for diarrhea, nausea and vomiting. Musculoskeletal: Positive for back pain, joint pain and neck pain. Skin: Positive for rash. Neurological: Positive for tingling, focal weakness and headaches. Psychiatric/Behavioral: The patient is nervous/anxious. All other systems reviewed and are negative. Physical Exam Constitutional: He is oriented to person, place, and time. He appears well-developed and we ll-nourished. No distress. HENT: Head: Normocephalic and atraumatic. Right Ear: External ear normal. Left Ear: External ear normal. Nose: Nose normal. Mouth/Throat: Oropharynx is clear and moist. No oropharyngeal exudate. Eyes: Conjunctivae and EOM are normal. Pupils are equal, round, and reactive to light. Righ t eye exhibits no discharge. Left eye exhibits no discharge. No scleral icterus. Neck: Normal range of motion. No JVD present. No tracheal deviation present. Cardiovascular: Normal rate, regular rhythm, normal heart sounds and intact distal pulses. Exam reveals no gallop and no friction rub. No murmur heard. Pulmonary/Chest: Effort normal and breath sounds normal. No stridor. No respiratory distres s. He has no wheezes. He has no rales. He exhibits no tenderness. Abdominal: Soft. Bowel sounds are normal. He exhibits no distension and no mass. There is n o tenderness. There is no rebound and no guarding. Musculoskeletal: Normal range of motion. He exhibits no edema, tenderness or deformity. Lymphadenopathy: He has no cervical adenopathy. Neurological: He is alert and oriented to person, place, and time. No cranial nerve deficit . He exhibits normal muscle tone. Coordination normal. Skin: Skin is warm and dry. No rash noted. He is not diaphoretic. No erythema. No pallor. Psychiatric: He has a normal mood and affect. His behavior is normal. Judgment and thought content normal. Nursing note and vitals reviewed. Assessment: Involuntary weight loss History of severe diarrhea probable infective occurring while visiting [facility] Diarrhea etiology and significance to be determined absence of nocturnal stooling increased stool frequency after meals compatible with postinfectious IBS Family history of colon cancer last colonoscopy by my report in 2006 appropriate candidate for the same Multiple other medical problems appropriate candidate for propofol sedation Plan: Upper endoscopy with duodenal biopsy colonoscopy with stool studies obtained at that time w ith right and left colonic biopsies with propofol sedation benefits and risks of the procedu res are explained to the patient he concurs and he will be scheduled as an outpatient Emmanuel Daniel 12/02/2017 documented in this encounter Plan of Treatment [...] | | | | | | [place] [address] | | | | | | [phone] | | | | | | | | +--------+ + + + + documented as of this encounter Visit Diagnoses + + | Diagnosis | + + | Diarrhea, unspecified type - Primary | + + | Weight loss, unintentional Loss of weight | + + | Generalized abdominal pain Abdominal pain, generalized | + + | Pacemaker Cardiac pacemaker in situ | + + documented in this encounter
--- OUTSIDE RECORDS SUMMARY | ~2020-06-15 | XMS | Encounter Summary ---
Demographics + + + | Address | [address] | | | [place] [address] | + + + | Home Phone [...] Providers + +------+ + | Care Distribution Operations Supervisor Name | Role | Phone | + +------+ + | Kirk French MD | PCP | | + +------+ + Encounter Details +--------+ + + + + | Date | Type | Department | Care Team | Description | +--------+ + + + + | 12/03/ | Episode | [facility] [place] | Elsa Horta, | | | 2018 | Changes | GASTROENTEROLOGY | Truss Puller Helper | | | | | [address] [facility] | | | | | | [address] [place] | | | | | | [address] | | | | | | [phone] | | | +--------+ + + + [...] | | | | | | [place] [address] | | | | | | [phone] | | | | | | | | +--------+ + + + + documented as of this encounter Visit Diagnoses Not on filedocumented in this encounter"
--- OUTSIDE RECORDS SUMMARY | ~2020-06-15 | XMS | Encounter Summary ---
Demographics + + + | Address | [address] | | | [place] [address] | + + + | Home Phone [...] Team Providers + +------+ + | Care Chair Car Attendant Name | Role | Phone | + +------+ + | Kirk French MD | PCP | | + +------+ + Encounter Details +--------+ + + + + | Date | Type | Department | Care Team | Description | +--------+ + + + + | 12/24/ | Anesthesia | [facility] | Jarett Barakat | | | 2018 | Event | MED CTR MP INTRA OP | P, MD [address] | | | | | [address] | [address] [place], [place] | | | | | [place], [place] | [address] | | | | | [address] | [phone] | | | | | [phone] | | | | | | | Arthru Wesley MD | | | | | | [address] | | | | | | [place], [place] | | | | | | [address] | | | | | | | | +--------+ + + + + Anesthesia Record + + + + + | Procedure Name | Responsible | Anesthesia Start | Anesthesia Stop Time | | | Anesthesiologist | Time | | + + + + + | DAVIAN (N/A Dom) | Jarett Barakat, | 12/24/17 1313 | 12/24/17 1401 | | | MD | | | + + + + + +----+---+ + + | Da | T | Event | Comment | | te | i | | | | | m | | | | | e | | | +----+---+ + + | 02 | 1 | | | | /0 | 3 | | | | 2/ | 1 | | | | 20 | 3 | | | | 18 | | | | +----+---+ + + | | 1 | an sofia now | Anesthesia Ready | | | 3 | | | | | 1 | | | | | 3 | | | +----+---+ + + | | 1 | An Checkout | Pre-use anesthesia machine/equipment checkout. | | | 3 | | | | | 1 | | | | | 3 | | | +----+---+ + + | | 1 | An Start | Reassessment prior to anesthesia induction/procedure. | | | 3 | | | | | 1 | | | | | 3 | | | +----+---+ + + | | 1 | an sofia now | | | | 3 | | | | | 1 | | | | | 4 | | | +----+---+ + + | | 1 | AN | Per surgeon request | | | 3 | Antibiotic | | | | 1 | declined | | | | 5 | | | +----+---+ + + | | 1 | First | | | | 3 | Inc/Proc St | | | | 1 | | | | | 6 | | | +----+---+ + + | | 1 | an sofia now | EGD | | | 3 | | | | | 2 | | | | | 6 | | | +----+---+ + + | | 1 | an sofia now | Colonoscopy | | | 3 | | | | | 3 | | | | | 2 | | | +----+---+ + + | | 1 | an sofia now | SDSU | | | 3 | | | | | 5 | | | | | 7 | | | +----+---+ + + | | 1 | an stop | | | | 3 | data | | | | 5 | | | | | 7 | | | +----+---+ + + | | 1 | An Stop | Patient handed off to recovery nurse. | | | 0 | | | | | 1 | | | +----+---+ + + +------+ | Meds | +------+ + + + | Name | Total | + + + | propofol | 300 mg | + + + | propofol (DIPRIVAN) injection | 561.75 mg | | (bolus) (20 mL) | | + + + | midazolam | 2 mg | + + + | lactated ringers (LR) infusion | 600 mL | + + + + + [...] +--------+ + + + | Periph | 12/24/17; 1303; Right; Hand; | 12/24/17 1303 by | 12/24/17 1435 by | | eral | xxqf-dlo-chgild catheter system; | Desmond Teresa RN | Carmela Mandujano RN | | IV | 20 gauge; intradermal injection; | | | | | 12/24/17; 1435 | | | +--------+ + + + [...] Postprocedure Evaluation - Jarett Barakat MD - 12/24/2017 2:08 PM PSTForm atting of this note might be different from the original. ANESTHESIA POSTANESTHESIA EVALUATION Moe Sanchez 57 y.o. male 1960 [id number] Procedure(s) EGD (N/A Mouth) COLONOSCOPY (N/A Rectum) Cooperates? Yes Mental Status Performs simple tasks. Respiratory Satisfactory - Airway patent (self maintained). Cardiovascular Satisfactory - Blood pressure and heart rate acceptable Temperature Satisfactory Pain Satisfactory N/V Control Satisfactory Hydration Satisfactory - No signs of dehydration Complications None apparent Vitals: 12/24/17 1145 12/24/17 1358 BP: (!) 131/102 112/75 Pulse: 77 77 Temp: 36.9 C (98.4 F) 36.8 C (98.2 F) Resp: 18 14 SpO2: 97% 95% Electronically signed by Jarett Barakat MD 12/24/2017 14:08 [facility] nesthesia Preprocedure Evaluation - Jarett Barakat MD - 2017 12:26 PM PST ANESTHESIA PREANESTHESIA EVALUATION Moe Sanchez 57 y.o. male 1960 [id number] Procedure(s): EGD (N/A Mouth) COLONOSCOPY (N/A Rectum) [...] Preventative health care Coronary artery disease involving karuk coronary artery of karuk heart without angina pectoris Cannabis abuse, daily [...] | | | | | | [place] [address] | | | | | | [phone] | | | | | | | | +--------+ + + + + documented as of this encounter Visit Diagnoses Not on filedocumented in this encounter Administered Medications + +---------+ +------+------+------+ | Medication Order | MAR | Action | Dose | Rate | Site | | | Action | Date | | | | + +---------+ +------+------+------+ | lactated ringers (LR) infusion | New Bag | 12/24/19 | | | | | at 100 mL/hr, Intravenous, | | 18 12:15 | | | | | CONTINUOUS, Starting Wed12/24/17 | | PM PST | | | | | at 1300, Pre-op | | | | | | + +---------+ +------+------+------+ +---+---+ | | | +---+---+ + +-------+ +------+---+---+ | midazolam (VERSED) 1 mg/mL | Given | 12/24/19 | 2 mg | | | | injection Intravenous, PRN, | | 18 1:25 | | | | | Anxiety, Starting Wed12/24/17 at | | PM PST | | | | | 1325, Anesthesia Intra-op | | | | | | + +-------+ +------+---+---+ +---+---+ | | | +---+---+ + +-------+ +-------+---+---+ | propofol (DIPRIVAN) injection | Given | 12/24/19 | 50 mg | | | | Intravenous, PRN, Starting Fri | | 18 1:26 | | | | | 12/24/17 at 1326, Anesthesia | | PM PST | | | | | Intra-op | | | | | | + +-------+ +-------+---+---+ +-------+ +-------+---+---+ | Given | 12/24/19 | 50 mg | | | | | 18 1:25 | | | | | | PM PST | | | | +-------+ +-------+---+---+ | Given | 12/24/19 | 50 mg | | | | | 18 1:24 | | | | | | PM PST | | | | +-------+ +-------+---+---+ +---+---+ | | | +---+---+ + +---------+ + +-------+---+ | propofol (DIPRIVAN) injection | New Bag | 12/24/19 | 150 | 96.3 | | | Intravenous, CONTINUOUS PRN, | | 18 1:26 | mcg/kg/m | mL/hr | | | Starting Wed12/24/17 at 1326, | | PM PST | in | | | | Anesthesia Intra-op | | | | | | + +---------+ + +-------+---+ +---+---+ | | | +---+---+ documented in this encounter
--- OUTSIDE RECORDS SUMMARY | ~2020-06-15 | XMS | Encounter Summary ---
Demographics + + + | Address | [address] | | | [place] [address] | + + + | Home Phone [...] Providers + +------+ + | Care Color Straining Bag Washer Name | Role | Phone | + +------+ + PCP | Unavailable | + +------+ + Encounter Details +--------+ + + + + | Date | Type | Department | Care Team | Description | +--------+ + + + + | 04/23/ | Hospital | [facility] | | | | 2007 - | Encounter | MED CTR MED ONC | | | | | | [address] | | | | 04/24/ | | [place] [address] | | | | 2007 | | [phone] | | | +--------+ + + + [...] | | | | | | [place] [address] | | | | | | [phone] | | | | | | | | +--------+ + + + + documented as of this encounter Visit Diagnoses Not on filedocumented in this encounter"
--- OUTSIDE RECORDS SUMMARY | ~2020-06-15 | XMS | Encounter Summary ---
Demographics + + + | Address | [address] [place] [address] [address] | | | [place] [address] | + + + | Home Phone [...] [place] | | | | | [address] | | + + + + + Care Team Providers + +------+ + | Care Outreach And Education Social Worker Name | Role | Phone | [...] Review | | | | [address] [facility] | [place], [place] | | | | | [facility] and | [address] | | | | | Healing, [facility] | [phone] | | | | | [place], [place] | | | | | | [address] | | | | | | [phone] | | | +--------+ + + + [...]
--- OUTSIDE RECORDS SUMMARY | ~2020-06-15 | XMS | Encounter Summary ---
Demographics + + + | Address | [address] | | | [place] [address] | + + + | Home Phone [...] Team Providers + +------+ + | Care Stair Builder Name | Role | Phone | [...] 2016 | | CARDIOLOGY [address] | [employer] [address] | | | | | [place], | [address] [place], [place] | | | | | [place] [address] | [address] | | | | | [phone] | | | +--------+--------+ + + + [...] | | | | | | [place] [address] | | | | | | [phone] | | | | | | | | +--------+ + + + + documented as of this encounter Visit Diagnoses Not on filedocumented in this encounter"
--- OUTSIDE RECORDS SUMMARY | ~2020-06-15 | XMS | Encounter Summary ---
Demographics + + + | Address | [address] | | | [place] [address] | + + + | Home Phone [...] Team Providers + +------+ + | Care Facilities Supervisor Name | Role | Phone | [...] [address] | | | | | [place], | [place], | | | | | [place] [address] | [place] [address] | | | | | [phone] | [phone] | | | | | | | [...] | | | | | | [place] [address] | | | | | | [phone] | | | | | | | | +--------+ + + + + documented as of this encounter Visit Diagnoses Not on filedocumented in this encounter"
--- OUTSIDE RECORDS SUMMARY | ~2020-06-15 | XMS | Encounter Summary ---
Demographics + + + | Address | [address] | | | [place] [address] | + + + | Home Phone [...] Providers + +------+ + | Care Senior Piping Designer Name | Role | Phone | [...] + + | 05/15/ | Office | [facility] | Matthew Uriarte | Kidney stones | | 2019 | Visit | [address] | MD Tawanna [address] | (Primary Dx) | | | | [place] | [address] [facility] [place] | | | | | [address] | [address] | | | | | [phone] | | | +--------+---------+ + + + [...] CV LHC; Surgeon: Daljit Singletary MD; Location: [facility] CV LAB CARDIAC CATHERIZATION N/A 01/25/2019 Procedure: CV Cor Angio; Surgeon: Daljit Singletary MD; Location: [facility] CV LAB COLONOSCOPY N/A 12/24/2017 Procedure: COLONOSCOPY; Surgeon: Emmanuel Daniel MD; Location: [facility] MEDICAL PROCEDURE UNIT COLONOSCOPY N/A 01/05/2019 Procedure: COLONOSCOPY; Surgeon: Emmanuel Daniel MD; Location: [facility] MEDICAL PROCEDURE UNIT EGD 12/24/2017 HARDWARE REMOVAL KNEE ARTHROSCOPY Bilateral KNEE SURGERY 2003 meniscus-right LAMINECTOMY 1991 L3-4 LUMBAR DISCECTOMY 1991 L3-4 LUMBAR FUSION 01/2011 6 spine fusions NECK SURGERY NECK SURGERY 08/10/2012 Fusion. [place] PACEMAKER PLACEMENT 06/14/2009 [employer] ROTATOR CUFF REPAIR Bilateral 03/22/2013 SINUS SURGERY 1997 SPINAL FUSION STOMACH SURGERY UPPER GASTROINTESTINAL ENDOSCOPY N/A 12/24/2017 Procedure: EGD; Surgeon: Emmanuel Daniel MD; Location: [facility] MEDICAL PROCEDURE UNIT UPPER GASTROINTESTINAL ENDOSCOPY N/A 01/05/2019 Procedure: EGD; Surgeon: Emmanuel Daniel MD; Location: [facility] MEDICAL PROCEDURE UNIT URETEROSCOPY Left 04/13/2019 Procedure: Cystoscopy, Left ureteroscopy with laser lithotripsy, Left ureteral stent place ment; Surgeon: Matthew Uriarte MD; Location: [facility] MAIN OR VASECTOMY Family History: Family History [...] EVERY DAY, Disp: 90 tablet, Rfl: 3 [facility] Natural Products (OSTEO BI-FLEX/5-LOXIN ADVANCED PO), Take [...] 911, Disp: 100 ta blet, Rfl: 3 [place]-3 Fatty Acids (SALMON OIL-1000 PO), CAPS, one capsule by mouth daily twice daily , Disp: , Rfl: ondansetron (ZOFRAN ODT) 4 mg disintegrating tablet, Take 4 mg by mouth every 8 hours as needed for Nausea., Disp: , Rfl: ONE TOUCH DELICA LANCETS [facility], Check glucose as needed for hypoglycemia, Disp: [...] pH, Urine 8.0 5.0 - 8.0 Specific [place] 1.008 1.001 - 1.030 Protein, Urine Negative [...] have not thoroughly proofread this note, and student nurse errors are very likely to occur. CC: [...] | | | | | | [place], | | | | | | [place] [address] | | | | | | [phone] | | | | | | | [...] Primary Calculus of kidney | + + documented in this encounter
--- OUTSIDE RECORDS SUMMARY | ~2020-06-15 | XMS | Encounter Summary ---
Demographics + + + | Address | [address] | | | [place] [address] | + + + | Home Phone [...] Team Providers + +------+ + | Care Student Admissions Clerk Name | Role | Phone | + +------+ + | Kirk French MD | PCP | | + +------+ + Reason for Visit +--------+--------+ + | Reason | Onset | Comments | | | Date | | +--------+--------+ + | Other | 07/01/ | EKG | | | 2018 | | +--------+--------+ + Encounter Details +--------+ + + + + | Date | Type | Department | Care Team | Description | +--------+ + + + + | 07/01/ | Telephone | [facility] [place] | Daljit Singletary, | Other (EK) | | 2017 | | CARDIOLOGY [address] | MD [address] [place] | | | | | [place], | [place], | | | | | [place] [address] | [place] [address] | | | | | [phone] | [phone] | | | | | | | [...] Notes Telephone Encounter - Heidi Tejeda - 07/01/2018 1:35 PM PDTPatient had EKG 07/01/18El ectronically signed by Heidi Tejeda at 07/01/2018 1:35 PM PDTTelephone Encounter - Heidi Cohen - 07/01/2018 8:59 AM PDTCalled and left voicemail to call back to schedule EKG for today. Patient cancelled EKG on 06/30/18. documented in this encounter Plan of Treatment [...] | | | | | | [place] [address] | | | | | | [phone] | | | | | | | | +--------+ + + + + documented as of this encounter Visit Diagnoses Not on filedocumented in this encounter"
--- OUTSIDE RECORDS SUMMARY | ~2020-06-15 | XMS | Encounter Summary ---
Demographics + + + | Address | [address] | | | [place] [address] | + + + | Home Phone [...] Team Providers + +------+ + | Care Aircraft Communicator Name | Role | Phone | + [...] | | | | [place] | [phone] | | | | | [address] | | | | | | [phone] | | | +--------+ + + + [...] + + +---------+ + + | New Century-3 Fatty | CAPS, one capsule by | [...] | | | | | | | #[id number], exp 07/2016 | | | | | [...] [address] | | | | | | [place], | | | | | | [place] [address] | | | | | | [phone] | | | | | | | [...]
--- OUTSIDE RECORDS SUMMARY | ~2020-06-15 | XMS | Encounter Summary ---
Demographics + + + | Address | [address] | | | [place] [address] | + + + | Home Phone [...] Team Providers + +------+ + | Care Molten Iron Pourer Name | Role | Phone | + [...] | Aneurysmal | Silvia, | [address] | | | | | dilatation | PARISA Solis | [place], | | | | | ([facility] | [address] | [place] | | | | | Procedures | [place] | [address] | | | | | ECHO | [place], | Phone: | | | | | Complete | [place] | [phone] | | | | | | [address] | Fax: | | | | | | Phone: | [phone] | | | | | | [phone] | | | | | | | Fax: | | | | | | | [phone] | | +--------+--------+ + + + + [...] | | | | | Aneurysmal | Cordell, | [address] | | | | | dilatation | PARISA Solis | [place], | | | | | ([facility]) | [address] | [place] | | | | | Procedures | [place] | [address] | | | | | ECHO | [place], | Phone: | | | | | Complete | [place] | [phone] | | | | | | [address] | Fax: | | | | | | Phone: | [phone] | | | | | | [phone] | | | | | | | Fax: | | | | | | | [phone] | | +--------+--------+ + + + + Encounter Details +--------+ + + + + | Date | Type | Department | Care Team | Description | +--------+ + + + + | 11/16/ | Hospital | [facility] | Silvia, | Aneurysmal | | 2017 | Encounter | MED CTR ECHO [address] | Janeen, PRIMER INSPECTOR [address] | dilatation (HCC) | | | | [place] | [place], | | | | | [place] [address] | [place] [address] | | | | | [phone] | [phone] | | | | | | | [...] + + + +---------+ + + | [place]-3 Fatty | CAPS, one capsule by | [...] 2019 | Visit | | PARISA Solis [address] | | | | | | [place], | | | | | | [place] [address] | | | | | | [phone] | | | | | | | [...] Patient Name VICTOR HUGO | | | [place] Room Number SARAH Patient | | | [id number] Date of Study 11/16/2017 Number | | | Visit Number [id number] | | | Referring Physician GURJIT TROY Number | | | ELIZABETHANGELIA SOLIS Date | | | of 1960 Cemetery Workers Supervisor ROMAINE | | | MARISSA TIPTON Age 57 year(s) Interpreting | | | GURJIT TROY | | | Maid Supervisor SYDNI CAGLE, | | | | | | Gender Male Nurse | | | Stress Pipe Organ Mechanic Apprentice Procedure Type of | | | Study [...] | | | EF | | | Ylrkbsigx99% Left Ventricle Diastolic Dimension: 5.12 cm | [...] Volume: 46.33 ml | | | EF Mkxidavqv62% | | | | | | Left [...] Rad Results In - 11/16/2017 1:48 PM PST Transthoracic Echocardiography Report | | (TTE) Demographics Patient Name VICTOR HUGO BARRY Room Number SARAH | | Patient [id number] Date of Study 11/16/2017 Number Visit Number | | [id number] Referring Physician GURJIT TROY | | Number NORMA SOLIS Date of | | 1960 Cemetery Workers Supervisor ROMAINE TIPTON RDCS Age 57 year(s) | | Interpreting GURJIT TROY Maid Supervisor | | SYDNI CAGLE MD | | Gender Male Nurse Stress [...] | | ------ Electronically signed by SYDNI CAGLE MD(Interpreting physician) on | | 11/16/2017 01:48 [...] [place] Volume: 46.33 ml | | EF Wfahcidva01% Left Ventricle Diastolic Dimension: 5.12 cm Systolic [...] | | | Electronically signed by SYDNI CAGLE MD(Interpreting physician) on | | 11/16/2017 01:48 [...] [place] Volume: 46.33 ml | | EF Bcibzzrjt18% | | | | Left Ventricle | [...]
--- OUTSIDE RECORDS SUMMARY | ~2020-06-15 | XMS | Encounter Summary ---
Demographics + + + | Address | [address] | | | [place] [address] | + + + | Home Phone [...] Providers + +------+ + | Care Special Police Officer Name | Role | Phone | + +------+ + | Kirk French MD | PCP | | + +------+ + Reason for Visit + +--------+ + | Reason | Onset | Comments | | | Date | | + +--------+ + | Lab Order | 12/23/ | due for fasting labs | | | 2016 | | + +--------+ + Encounter Details +--------+ + + + + | Date | Type | Department | Care Team | Description | +--------+ + + + + | 12/23/ | Telephone | [facility] [place] | Silvia, | Lab Order (due for | | 2016 | | CARDIOLOGY [address] | [place] [address] | fasting labs) | | | | [place], | [place], | | | | | [place] [address] | [place] [address] | | | | | [phone] | [phone] | | | | | | | [...] this encounter Miscellaneous Notes Telephone Encounter - Jay Webster Cert MA - 12/23/2016 1:44 PM PSTPatients voicemail is non-descriptive so left a voicemail for them to call us back in regards to their appointm ent 12/29/16. Patient is due for fasting labs (Lipid, BMP) prior to their appointment. Order s will be in our system but we can forward them to wherever patient would like to have the l abs drawn. documented in th is encounter Plan of [...] | | | | | | [place] [address] | | | | | | [phone] | | | | | | | | +--------+ + + + + documented as of this encounter Visit Diagnoses Not on filedocumented in this encounter"
--- OUTSIDE RECORDS SUMMARY | ~2020-06-15 | XMS | Encounter Summary ---
Demographics + + + | Address | [address] | | | [place] [address] | + + + | Home Phone [...] Team Providers + +------+ + | Care Petrography Teacher Name | Role | Phone | + +------+ + | Kirk French MD | PCP | | + +------+ + Encounter Details +--------+ + + + + | Date | Type | Department | Care Team | Description | +--------+ + + + + | 01/25/ | Hospital | [facility] | Daljit Singletary, | Stable angina | | 2019 | Encounter | MED CTR CV INTRA OP | [address] | pectoris ([facility]) | | | | [address] | [address], | | | | | [place] | [place] [address] | | | | | [address] | [phone] | | | | | [phone] | | | +--------+ + + + [...] as a collagen plugis used on the temple triny site to close the site, you [...] by your healthcare provider Date Last Reviewed: 09/22/201619996714-9236 [employer]. [address] [place] [address]. All righ ts reserved. 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 He is being seen today for follow up symptomatic PVC's status post ablation. He was last seen 08/24/2018 at which time, his current medical regimen was effective; josse nue present plan and medications.The plan will be [...] Preventative health care Coronary artery disease involving manzanita coronary artery of manzanita heart without angina pectoris Cannabis abuse, daily [...] 3RD DOSE, CALL 911 100 tablet 3 Ruby-3 Fatty Acids (SALMON OIL-1000 PO) CAPS, one capsule by mouth daily twice daily ondansetron (ZOFRAN ODT) 4 mg disintegrating tablet Take 4 mg by mouth. ONE TOUCH DELICA LANCETS [facility] Check glucose as needed [...] was found Confirmed by ANGELA MARADIAGA MD ([id number]) on 01/03/2019 8:10:39 PM LAB RESULTS reviewed during visit today primarily from [facility]: LIPID Lab Results Component Value Date TRIG [...] the HPI. RESULTS- I reviewed reports from [facility]: Xr Chest Ap Portable Result Date: 01/02/2019 [...] ASSESSMENT: 1. Non-critical Coronary artery disease involving manzanita coronary artery of manzanita heart [facility] [...] Symptoms with moderate exertion of t he [place] Heart Association functional class. Heart failure stage [...] go back in 3 days t o [place] for an attempt of ablation under general [...] office if he has any further problems Christine, Lead Project Engineer am acting as a scribe on behalf of, and in the pres ence of PARISA Lomas. - Christine Rodriguez, Lead Project Engineer 01/11/2019 13:46 I, PARISA Lomas, personally performed the services described in this documentati on, as scribed in my presence and it is both accurate and complete. -PARISA Lomas 01/11/2019 Portions of this chart may have been created with [employer] voice recognition software. Occasi onal wrong-word or [...] [address] | | | | | | [place], | | | | | | [place] [address] | | | | | | [phone] | | | | | | | [...] (1960) MEDICAL RECORD NUMBER: | | | [id number] OF PROCEDURE: 01/25/2019 HEAD TURNING MACHINE OPERATOR: Daljit | | | MD [facility] PROCEDURES [...] Sanchez, (1960) | | OF PROCEDURE: 01/25/2019PRIMARY PUBLIC HEALTH EDUCATOR: Daljit Singletary MD PROCEDURES | | PERFORMED:Coronary [...] | Aggressive medical management. | | at 9:33[facility]ERSRY CARE PROVIDER:Kirk French MDFor additional detail as [...]
--- OUTSIDE RECORDS SUMMARY | ~2020-06-15 | XMS | Encounter Summary ---
Demographics + + + | Address | [address] | | | [place] [address] | + + + | Home Phone [...] Providers + +------+ + | Care Manager Medicare Name | Role | Phone | + +------+ + PCP | Unavailable | + +------+ + Encounter Details +--------+ + + + + | Date | Type | Department | Care Team | Description | +--------+ + + + + | 12/16/ | Hospital | [facility] | | | | 2010 | Encounter | MED CTR LABORATORY | | | | | | [address] [place] | | | | | | [place] | | | | | | [address] | | | | | | [phone] | | | +--------+ + + + [...] | | | | | | [place] [address] | | | | | | [phone] | | | | | | | | +--------+ + + + + documented as of this encounter Visit Diagnoses Not on filedocumented in this encounter"
--- OUTSIDE RECORDS SUMMARY | ~2020-06-15 | XMS | Encounter Summary ---
Demographics + + + | Address | [address] | | | [place] [address] | + + + | Home Phone [...] Team Providers + +------+ + | Care Income Tax Manager Name | Role | Phone | + +------+ + | Michael Amanda DO | PCP | | + +------+ + Reason for Visit + +--------+ + | Reason | Onset | Comments | | | Date | | + +--------+ + | Medication Refill | 10/23/ | | | | 2013 | | + +--------+ + Encounter Details +--------+--------+ + + + | Date | Type | Department | Care Team | Description | +--------+--------+ + + + | 10/23/ | Refill | [facility] [place] | Kennethshaistatesha Shaistakenneth, | Medication Refill | | 2013 | | CARDIOLOGY [address] | [address] | | | | | [place], | [place], | | | | | [place] [address] | [place] [address] | | | | | [phone] | [phone] | | | | | | | [...] | | | | | | [place] [address] | | | | | | [phone] | | | | | | | | +--------+ + + + + documented as of this encounter Visit Diagnoses Not on filedocumented in this encounter"
--- OUTSIDE RECORDS SUMMARY | ~2020-06-15 | XMS | Encounter Summary ---
Demographics + + + | Address | [address] | | | [place] [address] | + + + | Home Phone [...] Team Providers + +------+ + | Care Orthodontic Laboratory Technician Name | Role | Phone | + +------+ + PCP | Unavailable | + +------+ + Encounter Details +--------+ + + + + | Date | Type | Department | Care Team | Description | +--------+ + + + + | 09/13/ | [facility] | [facility] | Jonathan, | | | 2009 | Encounter | MED CTR EMERGENCY | Martell Cr MD [address] | | | | | CENTER [address] | [address] | | | | | [place] | [place] [address] | | | | | [address] | [phone] | | | | | [phone] | | | +--------+ + + + [...] | | | | | | [place] [address] | | | | | | [phone] | | | | | | | | +--------+ + + + + documented as of this encounter Visit Diagnoses Not on filedocumented in this encounter"
--- OUTSIDE RECORDS SUMMARY | ~2020-06-15 | XMS | Encounter Summary ---
Demographics + + + | Address | [address] | | | [place] [address] | + + + | Home Phone | | + + + | Preferred Language | Unknown | + + + | Marital Status | | + + + | Jewish Affiliation | 1013 | + + + | Race | Unknown | + + + | Ethnic Group | Unknown | + + + Author + + + | Author | [facility] | | | and [place] | + + + | Organization | [facility] | [...] Providers + +------+ + | Care Ornamental Iron Worker Helper Name | Role | Phone [...] visit | CARDIOLOGY [address] | [address] | reprogramming/check | | | | [place], | [place], | DO NOT DELETE | | | | [place] [address] | [place] [address] | (Primary Dx); | | | | [phone] | [phone] | Sinoatrial node | | | | | | dysfunction ([facility]) | | | | | | [...] encounter Procedure Notes Daljit Singletary MD - 06/23/2016 3:43 PM PDTAssociated Order(s): DEVICE INTERROGATIONPro cedure(s): DEVICE INTERROGATIONPre-Procedure Diagnose(s): Pacemaker reprogramming/check; Sin oatrial node dysfunction (HCC); Presence of permanent cardiac pacemakerFormatting of this no te might be different from the original. PATIENT NAME: Moe Sanchez : 1960: AGE: 56 y.o. Pacemaker Evaluation Report June 23, 2016 Reason for evaluation: routine Indication for [...] PDF for further details. Data collected by Kailey Pruitt RN The technical aspect of downloading device data was supervised by Daljit Singletary MD Underlying rhythm: Sinus bradycardia 37 beats. No episodes. Histogram fair. Battery longevity 4.5 years. Normal and stable device function. Prefers office checks. Device interrogation due in office in 6 months. documented in this encounter Plan of Treatment [...] | | | | | | [place] [address] | | | | | | [phone] | | | | | | | [...] Daljit | MODESTO | | MD [facility] 06/23/2016 16:09 PATIENT [...] 1960: | | AGE: 56 y.o.Pacemaker Evaluation ReportAugust 2015Reason for evaluation: | | routineIndication for [...]
--- OUTSIDE RECORDS SUMMARY | ~2020-06-15 | XMS | Encounter Summary ---
Demographics + + + | Address | [address] | | | [place] [address] | + + + | Home Phone [...] Team Providers + +------+ + | Care Deep Submergence Vehicle Operator Name | Role | Phone | [...] [place] | | | | | | [address] | | | | | | [phone] | | | +--------+ + + + [...] + + + +---------+ + + | Carver-3 Fatty | CAPS, one capsule by | [...] documented as of this encounter ED Notes Sara Camacho RN - 10/21/2017 4:27 PM PSTStates he's lost 56lbs in three months and has had diarrhea after every meal with abdominal cramping. Was prescribed Bentyl but states it hasn't been helping and hasn't been able to eat for 4 days. documented in this encounter Plan of Treatment [...] W | | | | | | [place], | | | | | | [place] [address] | | | | | | [phone] | | | | | | | | +--------+ + + + + documented as of this encounter Visit Diagnoses + + | Diagnosis | + + | Patient left after triage - Primary | + + documented in this encounter
--- OUTSIDE RECORDS SUMMARY | ~2020-06-15 | XMS | Encounter Summary ---
Demographics + + + | Address | [address] | | | [place] [address] | + + + | Home Phone [...] Team Providers + +------+ + | Care Laboratory Coordinator Name | Role | Phone | + +------+ + | Kirk French MD | PCP | | + +------+ + Encounter Details +--------+ + + + + | Date | Type | Department | Care Team | Description | +--------+ + + + + | 07/21/ | [facility] | [facility] | Daljit Singletary, | Palpitations; | | 2018 | Encounter | MED CTR NUCLEAR | MD [address] | Presence of | | | | MEDICINE [address] | [place], | permanent cardiac | | | | [place] | [place] [address] | pacemaker; | | | | [place] [address] | [phone] | Sinoatrial node | | | | [phone] | | dysfunction (HCC) | +--------+ + + + + [...] + + + +---------+ + + | Olin-3 Fatty | CAPS, one capsule by | [...] encounter Procedure Notes Daljit Singletary MD - 08/25/2018 1:11 PM PDTAssociated Order(s): EVENT MONITOR 4 [employer] elton even study from 07/21 until 08/22/2018. Baseline EKG shows atrial paced rhythm with heart rate of 75-130 bpm. PACs in couplets and PVCs were noted.Electronically signed by Daljit Singletary MD at 08/25 1:12 PM PDTdocumented in this encounter Plan of Treatment +--------+ + + + + | Date | Type | Specialty | Care Team | Description | +--------+ + + + + | 10/30/ | Procedure | Cardiology | | | | 2019 | visit | | | | +--------+ + + + + | 10/30/ | Office | Cardiology | Silvai, | | | 2020 | Visit | | PARISA [place] [address] | | | | | | [place], | | | | | | [place] [address] | | | | | | [phone] | | | | | | | | +--------+ + + + + documented as of this encounter Procedures + +--------+ + + + | Procedure Name | Priori | Date/Time | Associated Diagnosis | Comments | | | ty | | | | + +--------+ + + + | EVENT MONITOR 4 WEEK | Routin | 08/25/2018 | Palpitations | Results for this | | | e | 1:11 PM | | procedure are in the | | | | PDT | | results section. | + +--------+ + + + documented in this encounter Results Event monitor - 4 week (08/25/2018 1:11 PM PDT) + + + | Narrative | Performed At | + + + | Daljit Singletary MD 08/25/2018 13:12 Wireless even study from | [facility] | | 07/21 until 08/22/2018. Baseline EKG [...] + | Palpitations | + + | Presence of permanent cardiac pacemaker Cardiac pacemaker in situ | + + | Sinoatrial node dysfunction (HCC) Sinoatrial node dysfunction | + + documented in this encounter"
--- OUTSIDE RECORDS SUMMARY | ~2020-06-15 | XMS | Encounter Summary ---
Demographics + + + | Address | [address] | | | [place] [address] | + + + | Home Phone [...] Team Providers + +------+ + | Care Carpet Jack Name | Role | Phone | + [...] | on | GASTROENTEROLOGY | [address], [place] | | | | | [address] [place] | [address] [place], [place] | | | | | [address] [place], [place] | [address] | | | | | [address] | | | | | | [phone] | | | +--------+ + + + [...] | | | | | | [place] [address] | | | | | | [phone] | | | | | | | | +--------+ + + + + documented as of this encounter Visit Diagnoses Not on filedocumented in this encounter"
--- OUTSIDE RECORDS SUMMARY | ~2020-06-15 | XMS | Encounter Summary ---
Demographics + + + | Address | [address] | | | [place] [address] | + + + | Home Phone [...] Team Providers + +------+ + | Care Diver Tender Name | Role | Phone | [...] [address] | | | | | [place], | [place], | | | | | [place] [address] | [place] [address] | | | | | [phone] | [phone] | | | | | | | [...] | | | | | | [place] [address] | | | | | | [phone] | | | | | | | | +--------+ + + + + documented as of this encounter Visit Diagnoses Not on filedocumented in this encounter"
--- OUTSIDE RECORDS SUMMARY | ~2020-06-15 | XMS | Encounter Summary ---
Demographics + + + | Address | [address] | | | [place] [address] | + + + | Home Phone [...] Team Providers + +------+ + | Care Radiophone Operator Name | Role | Phone | [...] 05/09/ | Emergency | [facility] | Danial Jean Pierre | Functional diarrhea | | 2019 | | [facility] | DO Naresh [address] | (Primary Dx) | | | | CENTER [address] | [address] [place] | | | | | [place], [place] | [place] [address] | | | | | [address] | [phone] | | | | | [phone] | | | +--------+ + + + [...] sent through Care Everywhere.Diarrhea, Unkno wn Cause (Indonesian)documented in this encounter Medications at Time of [...] + + + +---------+ + + | Hampton-3 Fatty | CAPS, one capsule by | [...] | | | | | | | citizen [place] coronary | | | | | | | artery of citizen [place]i | | | | | | | [...] documented as of this encounter ED Notes Danial Jean Pierre Naresh, DO - 05/19/2019 4:52 AM PDTFormatting of this note might be differ ent from the original. [facility] Moe Sanchez Emergency Department Encounter Note [address] [place] [address] PCP:Kirk French MD [phone] History ED Triage Notes, ED Triage Notes Marty Ramirez RN 05/09/2019 14:46 Pt reports had 23 stools yesterday. States he has had chronic diarrhea for years. Reports that he was told by dr Deal he most likely had chronic IBS. Unable to get office visit so c teo to ED. CC: Abdominal Pain HPI: Moe Sanchez is a 59 y.o. male who presents to the ED for evaluation of fr equent diarrhea and abdominal cramping. Patient reports that he had more than 20 stools yes terday. He could not get an appointment with his GI doctor, and decided to come here helen person Patient reports that he believes he may have IBS. He denies any fevers, nausea or vomit ing. PMH: Past Medical History: Diagnosis Date Abdominal pain, [...] wasn't treated. 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; Pushpaytronic Peptic ulcer disease Premature ventricular contraction Preventative health care 06/26/2013 LAST PSA:12/16/2010 RESULT:0.14 LAST COLONOSCOPY:02/05/2009 RESULTnormal exam Prostate troubles PUD Sinoatrial node dysfunction (HCC) SINUS BRADYCARDIA Sleep apnea Stroke (HCC) SUBSTANCE ABUSE, MULTIPLE Syncope 10/09/2010 Tachycardia Thoracic ascending aortic aneurysm (HCC) Thrombocytopenia (HCC) 08/26/2010 Tobacco user Tuberculosis Ulcerative colitis (HCC) Weight loss PSH: Past Surgical History: Procedure Laterality Date ABDOMINAL ADHESION SURGERY ABLATION Bilateral 04/03/2013 x3 Laser APPENDECTOMY 2004 [place] CARDIAC CATHERIZATION 12/25/13 Left CARDIAC CATHERIZATION N/A 01/25/2019 Procedure: CV LHC; Surgeon: Daljit Singletary MD; Location: [facility] CV LAB CARDIAC CATHERIZATION N/A 01/25/2019 Procedure: CV Cor Angio; Surgeon: Daljit Singletary MD; Location: [facility] CV LAB COLONOSCOPY N/A 12/24/2017 Procedure: COLONOSCOPY; Surgeon: Emmanuel Daniel MD; Location: [facility] MEDICAL PROCEDURE UNIT COLONOSCOPY N/A 01/05/2019 Procedure: COLONOSCOPY; Surgeon: Emmanuel Daniel MD; Location: [facility] MEDICAL PROCEDURE UNIT EGD 12/24/2017 HARDWARE REMOVAL KNEE ARTHROSCOPY Bilateral KNEE SURGERY 2004 meniscus-right LAMINECTOMY 1991 L3-4 LUMBAR DISCECTOMY 1991 L3-4 LUMBAR FUSION 01/2011 6 spine fusions NECK SURGERY NECK SURGERY 08/10/2012 Fusion. [place], [place] PACEMAKER PLACEMENT 06/14/2009 Medtronic ROTATOR CUFF REPAIR Bilateral 03/22/2013 SINUS SURGERY 1998 SPINAL FUSION STOMACH SURGERY UPPER GASTROINTESTINAL ENDOSCOPY N/A 12/24/2017 Procedure: EGD; Surgeon: Emmanuel Daniel MD; Location: [facility] MEDICAL PROCEDURE UNIT UPPER GASTROINTESTINAL ENDOSCOPY N/A 01/05/2019 Procedure: EGD; Surgeon: Emmanuel Daniel MD; Location: [facility] MEDICAL PROCEDURE UNIT URETEROSCOPY Left 04/13/2019 Procedure: Cystoscopy, Left ureteroscopy with laser lithotripsy, Left ureteral stent place ment; Surgeon: Matthew Uriarte MD; Location: [facility] MAIN OR VASECTOMY Medications: FRUIT RECEIVER Home Medications Medication Sig amLODIPine (NORVASC) 5 mg tablet Take 1 tablet by mouth Daily. Ascorbic Acid (VITAMIN C) 1000 MG tablet Take 1,000 mg by mouth Daily. aspirin 81 MG tablet Take 81 mg by mouth Daily. atorvaSTATin (LIPITOR) 20 mg tablet Take 1 tablet by mouth nightly. clonazePAM (KLONOPIN) 0.5 mg tablet Take 0.5 mg by mouth 3 times daily as needed. dicyclomine (BENTYL) 20 MG tablet Take 1 tablet by mouth 3 times daily as needed. Befor e meals diphenhydrAMINE (BENADRYL) 25 MG capsule Take 25 mg by mouth as needed. diphenoxylate-atropine (LOMOTIL) 2.5-0.025 mg per tablet Take 1 tablet by mouth 4 times daily as needed for Diarrhea. Glucose Blood (BLOOD GLUCOSE TEST STRIPS) STRP Test up to 1 times a day as needed ( One touch ) loperamide (IMODIUM A-D) 2 MG tablet Take 4 mg by mouth 3 times daily as needed. metoprolol succinate (TOPROL-XL) 100 mg ER tablet TAKE ONE TABLET BY MOUTH EVERY DAY Misc Natural Products (OSTEO BI-FLEX/5-LOXIN ADVANCED PO) [...] NO RELIEF AFTER 3RD DOSE, CALL 911 Hampton-3 Fatty Acids (SALMON OIL-1000 PO) CAPS, one capsule by mouth daily twice daily ondansetron (ZOFRAN ODT) 4 mg disintegrating tablet Take 4 mg by mouth every 8 hours as needed for Nausea. ONE TOUCH DELICA LANCETS [facility] Check glucose as needed for hypoglycemia oxyCODONE-acetaminophen (PERCOCET) 5-325 mg per tablet Take 1-2 tablets by mouth every 4 hours as needed for Pain. oxyCODONE-acetaminophen (PERCOCET) 5-325 mg per tablet Take 1 tablet by mouth every 6 h ours as needed for Pain. rOPINIrole (REQUIP) 1 mg tablet Take 1 tablet by mouth nightly. sertraline (ZOLOFT) 50 mg tablet Take 50 mg by mouth Daily. UNABLE TO FIND Take 1 tablet by mouth Daily. MARINE-D3 UNCODED MEDICATION Diagnosis: Obstructive Sleep Apnea ICD-9: 327.23 Length of Need: 99 Months valACYclovir (VALTREX) 1 g tablet Take 1,000 mg by mouth 2 times daily. Allergies: He is allergic to prednisone; isosorbide nitrate; clarithromycin; duloxetine; fe ntanyl; hydrocodone; hydrocodone-acetaminophen; morphine; penicillins; and tramadol hcl.. Social History: He reports that he quit smoking about 6 years ago. His smoking use include d cigars. He has never used smokeless tobacco. He reports that he drank about 4.2 oz of alco hol per week. He reports that he does not use drugs.. Review of Systems Constitutional: Negative for chills and fever. HENT: Negative for congestion. Eyes: Negative for visual disturbance. Respiratory: Negative for chest tightness and shortness of breath. Cardiovascular: Negative for chest pain and leg swelling. Gastrointestinal: Positive for abdominal pain and diarrhea. Negative for nausea and vomitin g. Genitourinary: Negative for dysuria and hematuria. Musculoskeletal: Negative for arthralgias and myalgias. Skin: Negative for rash. Neurological: Negative for weakness and headaches. Psychiatric/Behavioral: Negative for behavioral problems. Physical Exam Vital Signs: Temp: 36.1 C (97 F) Pulse: 80 Resp: 18 BP: (!) 139/105 SpO2: 97 % Physical Exam Constitutional: He is oriented to person, place, and time. He appears well-developed and we ll-nourished. No distress. HENT: Head: Normocephalic and atraumatic. Nose: Nose normal. Eyes: Pupils are equal, round, and reactive to light. EOM are normal. Neck: Normal range of motion. Neck supple. Cardiovascular: Normal rate, regular rhythm and intact distal pulses. No murmur heard. Pulmonary/Chest: Effort normal and breath sounds normal. No respiratory distress. Abdominal: Soft. He exhibits no distension. There is generalized tenderness. There is no re bound. Musculoskeletal: Normal range of motion. He exhibits no edema or deformity. Neurological: He is alert and oriented to person, place, and time. Skin: Skin is warm and dry. No rash noted. Psychiatric: His behavior is normal. Nursing note and vitals reviewed. ED Course and Medical Decision Making Moe Sanchez presented to the Emergency Department for evaluation, and he was t riaged to room ED03. I reviewed the nursing notes, and he was evaluated by me. IMPRESSION 1. Functional diarrhea Medical Decision Making as of May 19 454e May 09, 2019 1653 WBC: 6.5 1653 Hemoglobin: 16.4 1653 Hematocrit: 46.3 1653 Platelet Count: 154 1715 ESR: 6 1715 Lipase: [address] Abdomen Pelvis w Contrast 1715 1. NON-SPECIFIC PROMINENCE OF THE WALL OF THE BLADDER, LIKELY ACCENTUATED BY PARTIAL DECOMPRESSION. CLINICAL AND LABORATORY CORRELATION ADVISED. 2. NO RESIDUAL LEFT RENAL OR URETERAL CALCULI OR HYDROURETERONEPHROSIS. 3. SIMILAR SMALL RIGHT RENAL CALCULI WITHOUT VISIBLE URETERAL CALCULUS OR HYDROURETERONEPHROSIS. 4. FAT-CONTAINING INGUINAL HERNIAS. 1729 CRP, High Sensitive: 1.11 WedMay 19, 2019 0453 Patient's work-up is unremarkable. He will be treated with an antidiarrheal and antis pasmodic and have follow-up with his GI doctor. Patient is agreeable with this plan. He wa s discharged in stable condition. Jean Pierre Barrow DO 05/19/19 0454 Marty Verde RN - 05/09/2019 2:40 PM PDTPt reports had 23 stools yesterday. States he has had chronic di arrhea for years. Reports that he was told by dr Deal he most likely had chronic IBS. Rita le to get office visit so came to ED. documented in this encounter Plan of Treatment [...] | | | | | | [place] [address] | | | | | | [phone] | | | | | | | [...] W?MRN: | | | | | | [id number] | | | [id number] | | | riteri | | | [...] | | | St. | | | [place] | | | y | | | [...] | | | St. | | | [place] | | | y | | | [...] | | | St. | | | [place] | | | y H. | | [...] | | | St. | | | [place] | | | y H. | | [...] | | | M.D. | | | Manager Security And Safety | | | al | | | [...] | | | ent/60 | | | [id number] | | | [phone] | | | [...] Done | | [facility] | | | [place] | | | [facility] | | | [employer] Tube | [...] [address] | [place] | [phone] | | [facility] | | [address] | | | - LABORATORY | | [...] [address] | [place] | [phone] | | [facility] | | [address] | | | - LABORATORY | | | | + + + + + Sedimentation Rate (05/09/2019 4:42 PM PDT) + +-------+ + + + | Component | Value | Ref Range | Performed | Pathologist | | | | | At | Signature | + +-------+ + + + | Erythrocyte | 6 | <20 mm/hr | [facility] | | | | [...] + | [facility] | [address] | [place] | [phone] | | [facility] | | [address] | | | - LABORATORY | | [...] | | Sensitive | | | [facility] | | | | | | [...] [address] | [place] | [phone] | | [facility] | | [address] | | | - LABORATORY | | | | + + + + + Lipase (05/09/2019 4:42 PM PDT) + +-------+ + + + | Component | Value | Ref Range | Performed | Pathologist | | | | | At | Signature | + +-------+ + + + | Lipase | 38 | 12 - 53 U/L | [facility] | | | | | [...] [address] | [place] | [phone] | | [facility] | | [address] | | | - LABORATORY | | [...] | | | mmol/L | [facility] | | | [...] 10 | 9 - 23 mg/dL | [facility] | | | | | | [facility] | | | | | | MEDICAL | | | | | | CENTER - | | | | | | LABORATORY | | + + + + + + | Creatinine | 0.96 | 0.70 - 1.30 | [facility] | | | | | mg/dL | [facility] | | | | | | MEDICAL | | | | | | CENTER - | | | | | | LABORATORY | | + + + + + + | eGFR if not | >60Comment: GLOMERULAR | >=60 | [facility] | | | | FILTRATION | mL/min/1.73m2 | [facility] | | | [place] | RATE,ESTIMATED | | MEDICAL | | | | mL/min/1.81y0Dvxd than | | CENTER - | | [...] + | [facility] | [address] | [place] | [phone] | | [facility] | | [address] | | | - LABORATORY | | | | + + + + + CBC with Differential (05/09/2019 4:42 PM PDT) + +-------+ + + + | Component | Value | Ref Range | Performed | Pathologist | | | | | At | Signature | + +-------+ + + + | White Blood | 6.5 | 4.0 - 11.0 K/uL | [facility] | | | Cells | | | [facility] | | | | | | MEDICAL | | | | | | CENTER - | | | | | | LABORATORY | | + +-------+ + + + | Red Blood | 4.76 | 4.30 - 5.70 | [facility] | | | Cells | | M/uL | [facility] | | | | [...] | | Basophils | | K/uL | . [facility] | [...] - 0.01 | [facility] | | | Juan Carlos | | K/uL | [facility] | [...] [address] | [place] | [phone] | | [facility] | | [address] | | | - LABORATORY | | [...] - 1.030 | [facility] | | | [place], | | | [facility] | | | Urine | | | MEDICAL | | | | | | CENTER - | | | | | | LABORATORY | | + + + + + + | Protein, | Negative | Negative | [facility] | | | Urine | | | [facility] | | | | | | MEDICAL | | | | | | CENTER - | | | | | | LABORATORY | | + + + + + + | Blood, | Negative | Negative | [facility] | | | Urine | | | [facility] | [...] | [facility] | [address] | [place] | [phone] | | [facility] | | [address] | | | - LABORATORY | | [...]
--- OUTSIDE RECORDS SUMMARY | ~2020-06-15 | XMS | Encounter Summary ---
Demographics + + + | Address | [address] [place] [address] [address] | | | [place] [address] | + + + | Home Phone [...] + + | Author | [facility] | + + + | Organization | [facility] | + + + | Address | Unknown | + + + | Phone | Unavailable | + + + Support + + + + + | Name | Relationship | Address | Phone | + + + + + | Rachel Valencia | ELIEZER | [place] | | | | | [address] | | + + + + + Care Team Providers + +------+ + | Care Linux System Engineer Name | Role | Phone | [...] | | | | | Unintentiona | [address] | | | | | | l weight | Ave | | | | | | loss | [facility] [place] | | | | | | Abdominal | [address] | | | | | | cramping | Phone: | | | | | | Chronic | [phone] | | | | | | diarrhea | Fax: | | | | | | Rectal | [phone] | | | | | | bleeding [...] | | 2020 | | Center at [facility] [address] | MD [address] | | | | | [address] [place] | [facility] [place] | | | | | for Health and | [address] | | | | | Healing, Building [address] | [phone] | | | | | [facility] [place] | | | | | | [address] | | | | | | [phone] | | | +--------+ + + + [...]
--- OUTSIDE RECORDS SUMMARY | ~2020-06-15 | XMS | Encounter Summary ---
Demographics + + + | Address | [address] | | | [place] [address] | + + + | Home Phone [...] Providers + +------+ + | Care Electronic Warfare Specialist Name | Role | Phone | [...] | Visit | CARDIOLOGY [address] | SALES FINANCIAL ANALYST [address] | Dx) | | | | [address] [place], | [place], [place] | | | | | [place] [address] | [address] | | | | | [phone] | | | +--------+---------+ + + + [...] Sanchez Date: December 21, 2012 : 1960 Trial Consultant: PARISA Velazquez Device Harvest Worker Fruit: Medtronic Sense (mV) Impedance (?) Capture (V) Capture (ms) A Lead 4-5.6 423 1.5 0.09 RV Lead >31.36 539 2.0 0.09 LV Lead Battery Impedance (?): 301 Battery Voltage (V): 2.8 NV Interval (ms): 140 AR Interval (ms): 210 VA Conduction: Mode Switch Events: N/A % of time: -RETURNER: 0.6 AP-RETURNER: 1.3 -VS: 23.9 AP-VS: 74.2 RETURNER: Magnetic Rate: 85 LINDA: 65 LEAH: Current [...] | | | | | | [place] [address] | | | | | | [phone] | | | | | | | [...]
--- OUTSIDE RECORDS SUMMARY | ~2020-06-15 | XMS | Encounter Summary ---
Demographics + + + | Address | [address] | | | [place] [address] | + + + | Home Phone [...] Team Providers + +------+ + | Care Shank Stapler Name | Role | Phone | + [...] 2016 | | CARDIOLOGY [address] | HOTEL SUPERINTENDENT [address] | | | | | [place], | [place], [place] | | | | | [place] [address] | [address] | | | | | [phone] | | | +--------+--------+ + + + [...] | | | | | | [place] [address] | | | | | | [phone] | | | | | | | | +--------+ + + + + documented as of this encounter Visit Diagnoses Not on filedocumented in this encounter"
--- OUTSIDE RECORDS SUMMARY | ~2020-06-15 | XMS | Encounter Summary ---
Demographics + + + | Address | [address] | | | [place] [address] | + + + | Home Phone [...] Team Providers + +------+ + | Care Brusher Warp Name | Role | Phone | + +------+ + | Kirk French MD | PCP | | + +------+ + Encounter Details +--------+ + + + + | Date | Type | Department | Care Team | Description | +--------+ + + + + | 12/24/ | Anesthesia | [facility] | Jarett Barakat | | | 2018 | Event | MED CTR MP INTRA OP | P, MD [address] | | | | | [address] | [address] [place], [place] | | | | | [place], [place] | [address] | | | | | [address] | [phone] | | | | | [phone] | | | | | | | Arthur Wesley MD | | | | | | [address] | | | | | | [place], [place] | | | | | | [address] | | | | | | | [...] 12/24/17 1435 by | | eral | [id number] catheter system; | Desmond Teresa RN | [...] EVALUATION Moe Sanchez 57 y.o. male 1960 [id number] Procedure(s) EGD (N/A Mouth) COLONOSCOPY (N/A Rectum) [...] signed by Jarett Barakat MD 12/24/2017 14:08 [facility] nesthesia Preprocedure Evaluation - Jarett Barakat MD - 2017 12:26 PM PST ANESTHESIA PREANESTHESIA EVALUATION Moe Sanchez 57 y.o. male 1960 [id number] Procedure(s): EGD (N/A Mouth) COLONOSCOPY (N/A Rectum) [...] Preventative health care Coronary artery disease involving [place] coronary artery of [place] heart without angina pectoris [...] | | | | | | [place] [address] | | | | | | [phone] | | | | | | | [...]
--- OUTSIDE RECORDS SUMMARY | ~2020-06-15 | XMS | Encounter Summary ---
Demographics + + + | Address | [address] | | | [place] [address] | + + + | Home Phone [...] Providers + +------+ + | Care Wire Coiner Name | Role | Phone | + [...] | [address] [place] | [place] [address] | | | | | [address] | [phone] | | | | | [phone] | | | +--------+ + + + [...] | | | | | | [place] [address] | | | | | | [phone] | | | | | | | | +--------+ + + + + documented as of this encounter Visit Diagnoses Not on filedocumented in this encounter"
--- OUTSIDE RECORDS SUMMARY | ~2020-06-15 | XMS | Encounter Summary ---
Demographics + + + | Address | [address] [place] [address] [address] | | | [place] [address] | + + + | Home Phone | | + + + | Preferred Language | Unknown | + + + | Marital Status | | + + + | Anabaptist Affiliation | Unknown | + + + | Race | White | + + + | Ethnic Group | Not or | + + + Author + + + | Author | [facility] | + + + | Organization | [facility] | + + + | Address | Unknown | + + + | Phone | Unavailable | + + + Support + + + + + | Name | Relationship | Address | Phone | + + + + + | Rachel Valencia | ELIEZER | [place] | | | | | [address] | | + + + + + Care Team Providers + +------+ + | Care Vapor Coater Name | Role | Phone | + +------+ + | Darion Holden DO | PCP | | + +------+ + Encounter Details +--------+ + + + + | Date | Type | Department | Care Team | Description | +--------+ + + + + | 01/29/ | Telephone | Dig[facility]ive [facility] | Bridgette Rios, | | | 2019 | | Center at [facility] [address] | MD [address] | | | | | [address] [place] | [place], [place] | | | | | for Health and | [address] | | | | | Healing, [address] | [phone] | | | | | [place], [place] | | | | | | [address] | | | | | | [phone] | | | +--------+ + + + [...]
--- OUTSIDE RECORDS SUMMARY | ~2020-06-15 | XMS | Encounter Summary ---
Demographics + + + | Address | [address] | | | [place] [address] | + + + | Home Phone [...] Providers + +------+ + | Care Transportation Sales Consultant Name | Role | Phone | + +------+ + | Kirk French MD | PCP | | + +------+ + Reason for Visit +--------+--------+ + | Reason | Onset | Comments | | | Date | | +--------+--------+ + | Other | 01/02/ | chest pain | | | 2019 | | +--------+--------+ + Encounter Details +--------+ + + + + | Date | Type | Department | Care Team | Description | +--------+ + + + + | 01/02/ | Telephone | [facility] | Daljit Singletary, | Other (chest pain) | | 2019 | | CARDIOLOGY [address] | MD [address] [place] | | | | | [place], | [place], | | | | | [place] [address] | [place] [address] | | | | | [phone] | [phone] | | | | | | | [...] Telephone Encounter - Mariana Valentine RN - 01/02/2019 4:38 PM PSTPatient called, he i s concerned, his fingers are blue, he is experiencing chest pain, he had shortness of breath yesterday. He took a nitro with some relief. I asked him to go to ED to be evaluated. He re fused to go to [facility], will come to [facility]. He stated he would drive himself. I ca utioned him not too. He refused and will come to [facility] ..................................... .....Mariana Valentine RN on 01/02/19 at 16:55 documented in thi s encounter Plan of [...] | | | | | | [place] [address] | | | | | | [phone] | | | | | | | | +--------+ + + + + documented as of this encounter Visit Diagnoses Not on filedocumented in this encounter"
--- OUTSIDE RECORDS SUMMARY | ~2020-06-15 | XMS | Encounter Summary ---
Demographics + + + | Address | [address] | | | [place] [address] | + + + | Home Phone [...] Team Providers + +------+ + | Care Oracle Etl Developer Name | Role | Phone | + +------+ + | Kirk French MD | PCP | | + +------+ + Reason for Visit + +--------+ + | Reason | Onset | Comments | | | Date | | + +--------+ + | Blood Pressure | 04/27/ | Low reading | | | 2016 | | + +--------+ + Encounter Details +--------+ + + + + | Date | Type | Department | Care Team | Description | +--------+ + + + + | 04/27/ | Telephone | [facility] [place] | [place], | Blood Pressure (Low | | 2017 | | CARDIOLOGY [address] | Janeen [employer] [address] | reading) | | | | [place], | [place], | | | | | [place] [address] | [place] [address] | | | | | [phone] | [phone] | | | | | | | [...] Encounter - Jay Webster Cert MA - 04/28/2017 11:16 AM PDTFred called again s zoltan he was in the ED on Wednesday and they told him to stop his Blood pressure medication. Since then he had stopped Metoprolol which caused him to go high in readings and dizziness. He restarted on his own Metoprolol 100 mg last night, it has leveled out his BP 112/70 stil l having dizzy spells. Wanted to let us know and that he will be seeing Manolo tomorrow a bout his anxiety, and his blood sugar levels. He wants to continue to do 100 mg and monitor his BP he asked to be scheduled in 2 weeks we have booked him on the at 1500. Amilcar feel s comfortable with this as he feels the dizziness may be associated to med changes and blood sugar. elephone Encounter - Emma Gale - 04/28/2017 8:16 AM PDTPatient stated in frustration during the phone call on 04/27/17 that he was going to self adjust his medication and dosage of the metoprolol as he feels he needs something to manage his fluctuating high and low blood pres sure. elephone Emma Cabrera - 04/27/2017 4:13 PM PDTPatient called office returning Jay's voicem ail that was left. I confirmed with patient that the tentative 1630 apt was cancelled. Patie nt states that Dr. Brasher lowered the dosage of his metoprolol and he was currently seen in th e ER and it was then that the ER Requested that he stop taking the metoprolol entirely. Patient did not state the ER he visited, nor could he provide a time frame or name of the lorraine bellamy who requested him to discontinue his metoprolol. I informed the patient that we would try to call him tomorrow since Jay was out of the off ice at the time. elepho ne Encounter - Jay Webster Cert MA - 04/27/2017 12:52 PM PDTFred Stopped by the office today requesting to be seen, stating his BP has been running to low. He advised us that "the y have been changing my metoprolol dosing". He was advised that he can have an appt tomorrow 04/28/17 at 1630, but we would call to check and see if that appointment was useable. Advis ed Janeen Vega of patient stoping by, she requested more information about who changed it and who is monitoring it. I reviewed his chart and found that Dr. Brasher changed it to 100 mg daily in March and requested Amilcar to do a BP log. Called Amilcar to see if he has these readi ngs and if it was us that changed the med. Unable to reach so left a voicemail requesting hi m to call back. He is currently not scheduled to be seen this week at 1630. Janeen requested readings prior to scheduling. documented in this encounter Plan of Treatment [...] | | | | | | [place] [address] | | | | | | [phone] | | | | | | | | +--------+ + + + + documented as of this encounter Visit Diagnoses Not on filedocumented in this encounter
--- OUTSIDE RECORDS SUMMARY | ~2020-06-15 | XMS | Encounter Summary ---
Demographics + + + | Address | [address] | | | [place] [address] | + + + | Home Phone [...] Team Providers + +------+ + | Care Breaker Oiler Name | Role | Phone | + [...] Closed | | Gastroenterol | Diagnoses | Eladioichman, | Harri, | | | | ogy | Abnormal | Kirk Guidry, | Emmanuel Fitzpatrick MD | | | | | weight loss | [address] | [address], | | | | | Anxiety | [address] | [address] | | | | | disorder, | [address] | [place], | | | | | unspecified | [place], [place] | [place] [address] | | | | | Chronic | [address] | Phone: | | | | | pain | Phone: | [phone] | | | | | syndrome | [phone] | Fax: | | | | | Procedures | Fax: | [phone] | | | | | office visit | [phone] | | +--------+--------+ + + + + Encounter Details +--------+---------+ + + + | Date | Type | Department | Care Team | Description | +--------+---------+ + + + | 12/26/ | Office | [facility] | Emmanuel Daniel MD | Functional diarrhea | | 2019 | Visit | GASTROENTEROLOGY | [address], [address] | (Primary Dx); | | | | [address] | [address] [place], [place] | Gastrointestinal | | | | [address] [place], [place] | [address] | hemorrhage | | | | [address] | | associated with | | | | [phone] | | anorectal source; | | | [...] encounter H&P Notes Emmanuel Daniel MD - 12/26/2018 10:00 AM PST Moe Sanchez is an 58 y.o. male. The patient is seen for diarrhea and GI tract bleeding. Outside records are reviewed The patient has had intermittent episodes of diarrhea since serving in the in [facility]. His last episodes of diarrhea started in [...] much worse after having "the flu" around Thanksgiving. He al so states that stress seems [...] inflammatory bowel disease. CT scan done through [facility] November s howed mild diverticulosis without evidence [...] 12/26/2018 documented in this encounter Miscellaneous Notes Addendum Note - Kaylynn Patel RN - 12/26/2018 10:00 AM PST Addended by: GENA PATEL on: 12/26/2018 11:59 Modules accepted: Orders ddendum Note - Kaylynn Patel RN - 12/26/2018 10:00 AM PST Addended by: KAYLYNN PATEL on: 11:14 Modules accepted: Orders documented in this encounter Plan of Treatment [...] | 2019 | Visit | | Janeen, FRONT DESK AGENT [address] | | | | | | [place], | | | | | | [place] [address] | | | | | | [phone] | | | | | | | [...]
--- OUTSIDE RECORDS SUMMARY | ~2020-06-15 | XMS | Encounter Summary ---
Demographics + + + | Address | [address] | | | [place] [address] | + + + | Home Phone [...] Team Providers + +------+ + | Care Daycare Worker Name | Role | Phone | [...] + + + + | 07/27/ | Emergency | [facility] | Beto Palma MD | Chest pain, | | 2018 - | | [facility] | [address] | unspecified type | | | | CENTER [address] | [place] | (Primary Dx) | | 07/28/ | | [place] | [address] | | | 2017 | | [address] | | | | | | [phone] | | | +--------+ + + + [...] + + + | Blood Pressure | 123/77 | 07/28/2018 12:45 AM | | | | | PDT | | + + + + + | Pulse | 71 | 07/28/2018 12:45 AM | | | | | PDT | | + + + + + | Temperature | 37 C (98.6 F) | 07/27/2018 10:51 PM | | | | | PDT | | + + + + + | Respiratory Rate | 16 | 07/28/2018 12:45 AM | | | | | PDT | | + + + + + | Oxygen Saturation | 98% | 07/28/2018 12:45 AM | | | | | PDT | | + + + + + | Inhaled Oxygen | - | - | | | Concentration | | | | + + + + + | Weight | 117.9 kg (260 lb) | 07/27/2018 10:51 PM | | | | | PDT | | + + + + + | Height | 193 cm (6' 4") | 07/27/2018 10:51 PM | | | | | PDT | | + + + + + | Body Mass Index | 31.65 | 07/27/2018 10:51 PM | | | | | PDT [...] as of this encounter Discharge Instructions Instructions Beto Palma MD - 07/28/2018Please return for worsening symptoms, fevers, chi lls, shortness of breath. AttachmentsThe following attachments cannot be sent through Care Everywhere.Chest Pain, Non cardiac (Mongolian)documented in this encounter Medications at Time of [...] + + + +---------+ + + | [place]-3 Fatty | CAPS, one capsule by | [...] + documented as of this encounter ED Anatoliy Galvan RN - 07/27/2018 10:55 PM PDTPt reports chest pain all day. Reports card iac history with multiple work ups. Currently on 30 day holter monitor Beto Cruz MD - 07/27/2018 10:55 PM PD T [facility] Moe Sanchez Emergency Department Encounter Note [address] [place] [address] PCP:Kirk French MD [phone] CHIEF COMPLAINT: Chief Complaint Patient presents with Chest Pain ED Room: ED06/ED06 HPI Moe Sanchez is a 58 y.o. male who presents to the Emergency Department with chest pain . Patient has a history of chronic chest pain. Stress test on 07/21 unremarkable. Patient complains of chest pain ongoing since the morning. Chest pain is substernal some mild chest pain on the left side. Physical activity increases pain. Patient took 3 nitros with no ch anges in his pain. He does take a baby aspirin. He has Holter monitor in place. Denies an y shortness of breath or nausea. Denies any heart palpitations. PAST MEDICAL & SURGICAL HISTORY Past Medical History: Diagnosis Date Abdominal pain, unspecified site 07/17/2011 Anginal pain (HCC) Anxiety depression Bladder troubles CAD CENTRAL SLEEP APNEA CONDS CLASSIFIED ELSEWHERE 12/15/2010 Chest pain Chronic neck pain Chronic pain syndrome Depression Drug addiction in remission (HCC) heroin Fatigue 09/15/2010 FATTY LIVER DISEASE Fibromyalgia HEPATITIS B HTN (hypertension) Hypercholesterolemia Hyperlipidemia Hypertension Hypoglycemia Insomnia Lower back injury 1980 1984 Lumbago Neck pain, chronic 09/24/2011 Neurological disorder Nondependent opioid abuse in remission Obstructive sleep apnea on CPAP (variable compliance) [...] 08/26/2010 Tobacco user Tuberculosis Ulcerative colitis (HCC) Past Surgical History: Procedure Laterality Date ABDOMINAL ADHESION SURGERY ABLATION Bilateral 04/03/2013 x3 APPENDECTOMY 2005 [facility] CARDIAC CATHERIZATION 12/25/13 Left COLONOSCOPY N/A 12/24/2017 Procedure: COLONOSCOPY; Surgeon: Emmanuel Daniel MD; Location: [facility] MEDICAL PROCEDURE UNIT HARDWARE REMOVAL KNEE SURGERY 2004 meniscus-right LAMINECTOMY 1991 L3-4 LUMBAR DISCECTOMY 1991 L3-4 LUMBAR FUSION 01/2011 6 spine fusions neck fusion 08/10/2012 [place] NECK SURGERY PACEMAKER PLACEMENT 06/14/09 SHOULDER SURGERY 03/22/13 SINUS SURGERY 1997 SPINAL FUSION STOMACH SURGERY UPPER GASTROINTESTINAL ENDOSCOPY N/A 12/24/2017 Procedure: EGD; Surgeon: Emmanuel Daniel MD; Location: [facility] MEDICAL PROCEDURE UNIT VASECTOMY CURRENT MEDICATIONS Discharge Medication List as of 07/28/2018 0:52 CONTINUE these medications which have NOT CHANGED Details Ascorbic Acid (VITAMIN C) 1000 MG tablet Take 1,000 mg by mouth Daily. aspirin 81 MG tablet Take 81 mg by mouth Daily. cholecalciferoL (VITAMIN D-3) 1,000 units CAPS capsule Take by mouth.Historical Med clonazePAM (KLONOPIN) 0.5 mg tablet R-0, Historical Med cloNIDine (CATAPRES) 0.2 MG tablet Take 1 tablet by mouth 3 times daily.Disp-270 tablet, R- 3, Normal diphenhydrAMINE (BENADRYL) 25 MG capsule Take 25 mg by mouth as needed. flecainide (TAMBOCOR) 100 mg tablet Take 1 tablet by mouth 2 times daily.Disp-60 tablet, R- 5, Normal Methylsulfonylmethane (MSM) 1000 MG TABS Take One time daily.Historical Med metoprolol succinate (TOPROL-XL) 100 mg ER tablet Take 1 tablet by mouth Daily.Disp-90 tabl et, R-1, Normal Misc Natural Products (OSTEO BI-FLEX/5-LOXIN ADVANCED PO) [...] DOSE, CALL 911Disp-100 tablet, R-3 , Normal [place]-3 Fatty Acids (SALMON OIL-1000 PO) CAPS, one capsule by mouth daily twice daily ONE TOUCH DELICA LANCETS [facility] [place] [place] Check glucose as needed for hypoglycemiaDisp-100 each, R-3, N ormal pravastatin (PRAVACHOL) 40 MG tablet take 1 tablet by mouth NIGHTLYDisp-90 tablet, R-3, Nor mal rOPINIrole (REQUIP) 1 mg tablet Take 1 tablet by mouth nightly.R-0, Historical Med UNABLE TO FIND Take 1 tablet by mouth Daily. MARINE-B1Qjkwvehuqh Med UNCODED MEDICATION Diagnosis: Obstructive Sleep Apnea ICD-9: 327.23 Length of Need: 99 MonthsDisp-1 Device, R-0, [id number] -Nasal Pillows, Z1093-Pvzuk Mask, A 7030- Full Face Mask, V1805-Ysayjj Humidifier, Z4921-Wafnsb Tubing, H5472-Yjmpmlgb, X9373-Vq instrap A7039/A703 8-Filters valACYclovir (VALTREX) 1 g tablet Take 1,000 mg by mouth 2 times daily.R-1, Historical Med ALLERGIES Allergies Allergen Reactions Clarithromycin Palpitations Rapid [...] PHYSICAL EXAM VITAL SIGNS: (first vital signs):Temp: 37 C (98.6 F) Pulse: 71 Resp: 14 SpO2: 96 % BP: (!) 125/97 Body mass index is 31.65 kg/m. Constitutional: male patient, GCS 15, no acute distress HEENT: Atraumatic, PERRL, Oropharynx benign. Neck: Supple with full range of motion. No JVD, no lymphadenopathy, no meningismus and No Cervical Spine Tenderness to palpation or step-off noted.. Respiratory: Good air movement bilaterally. No wheezes, No, rales. Cardiovascular: Normal S1 S2 Abdomen: Mild epigastric tenderness, Back: Within normal limits, No CVA tenderness and No midline thoracic or lumbar spinal tend erness Extremities: Nontender. No lower extremity edema, no calf asymmetry. Present distal pulse s. Skin: Warm, Dry, No rashes Neurologic: Alert & oriented. Cranial nerves II-XII intact , Gait and speech are normal Psychiatric: Normal mood, affect and judgement. EKG 12-lead EKG shows LABS Results for orders placed or performed during the hospital encounter of 07/27/18 CBC with Differential Result Value Ref Range WBC 7.2 4.0 - 11.0 K/uL RBC 4.99 4.30 - 5.70 M/uL Hgb 17.4 13.5 - 18.0 g/dL Hct 49.3 40.0 - 51.0 % MCV 98.8 83.0 - 101.0 fL MCH 34.9 28.0 - 35.0 pg MCHC 35.3 32.0 - 36.0 g/dL RDW-CV 13.1 <15.0 % Platelet Count 142 140 - 440 K/uL MPV 9.6 fL % Neutrophils 60.4 45.0 - 82.0 % % Lymphocytes 26.6 20.0 - 45.0 % % Monocytes 10.9 4.0 - 12.0 % % Eosinophils 1.2 0.0 - 5.0 % % Basophils 0.9 0.0 - 1.0 % Absolute Neutrophils 4.40 1.80 - 8.50 K/uL Absolute Lymphocytes 1.90 0.60 - 3.20 K/uL Absolute Monocytes 0.80 0.00 - 1.00 K/uL Absolute Eosinophils 0.10 0.00 - 0.40 K/uL Absolute Basophils 0.10 0.00 - 0.10 K/uL Comprehensive Metabolic Panel Result Value Ref Range NA 137 136 - 149 mmol/L K 4.3 3.5 - 5.1 mmol/L CL 103 98 - 109 mmol/L CO2 26 24 - 31 mmol/L ANION GAP 8 3 - 16 mmol/L GLUCOSE 98 70 - 109 mg/dL BUN 14 7 - 18 mg/dL Creatinine, Serum/Plasma 1.06 0.60 - 1.30 mg/dL eGFR if not >60 >=60 mL/min/1.73m2 CALCIUM 9.5 8.3 - 10.5 mg/dL ALBUMIN 4.3 3.2 - 5.0 g/dL Bilirubin Total 1.3 0.1 - 1.5 mg/dL Total protein 7.0 6.0 - 7.8 g/dL AST 37 10 - 42 U/L ALT 37 6 - 45 U/L ALK PHOS 53 40 - 110 U/L GLOBULIN 2.7 2.1 - 3.8 g/dL Albumin/Globulin ratio 1.6 0.8 - 2.0 BUN/CREA 13.2 Troponin I Result Value Ref Range Troponin I 0.01 <0.06 ng/mL ECG 12 lead Result Value Ref Range VENTRICULAR RATE EKG 74 BPM ATRIAL RATE 74 BPM P-R INTERVAL 216 ms QRS DURATION 106 ms Q-T INTERVAL 374 ms Q-T INTERVAL (CORRECTED) 415 ms P WAVE AXIS 8 degrees QRS AXIS 18 degrees T AXIS -6 degrees INTERPRETATION TEXT Atrial-paced rhythm with prolonged AV conduction Nonspecific T wave abnormality Inferior leads Abnormal ECG When compared with ECG of 01-JUL-2018 10:41, Nonspecific T wave abnormality Inferior leads is now present Confirmed by ANGELA MARADIAGA MD ([id number]) on 07/28/2018 6:03:35 AM IMAGING STUDIES (X-Rays interpreted by ED Physician) Findings: The bilateral lungs are clear with no evidence for pleural effusion or pneumothorax. Heart size is within normal limits. Pulmonary vasculature is within normal limits. Aorta is normal. Mediastinum is unremarkable. No acute osseous or soft tissue abnormality identified. Cardiac pacer leads are unchanged. IMPRESSION - No acute intrathoracic abnormality identified. Dictated and Signed by: Alok Wolfe MD Electronically signed: 07/27/2018 11:31 PM ED COURSE & MEDICAL DECISION MAKING Pertinent Labs & Imaging studies were reviewed along with EMS notes and [facility] record s if applicable. (See chart for details) Medications and Allergy list reviewed. Nurses note and old records were reviewed The patient was seen and examined. 58 year old male with a history of chest pain that has b een ongoing for years presents with chest pain ongoing since the morning. He does have a hol ter monitor in place. Troponin and CXR were unremarkable. EKG showed a T wave inversion in l ead III that was present in previous EKG and non specific t wave inversion in avf. Given dur ation of pain we would expect troponin to be elevated. Patient was given aspirin. He also paulino s a history of anxiety and he was given ativan to see if that would improve his symptoms but he didn't notice any significant change. He was given a GI cocktail with significant improv ement in his symptoms. He has had a scope EGD done earlier this year and it was normal. He w as given a PPI to see if that would help. He was asked to return for worsening symptoms. Last Set of Vital Signs: Temp: 37 C (98.6 F) Pulse: 71 Resp: 16 SpO2: 98 % BP: 123/77 FINAL IMPRESSION ICD-10-CM ICD-9-CM 1. Chest pain, unspecified typeAcute R07.9 786.50 Follow-up Information Kirk French MD. Specialty: Internal Medicine Why: As needed Contact information: [facility] LORA RENARD [address] [address] Discharge Medication List as of 07/28/2018 0:52 START taking these medications Details raNITIdine (ZANTAC) 75 MG tablet Take 1 tablet by mouth 2 times daily.Disp-30 tablet, R-0, Print Beto Palma MD 07/28/18 1516 documented in this enc nter Plan of Treatment +--------+ + + + [...] | | | | | | [place] [address] | | | | | | [phone] | | | | | | | | +--------+ + + + + + +------+--------+ + + | Name | Type | Priori | Associated Diagnoses | Date/Time | | | | ty | | | + +------+--------+ + + | ED INFORMATION | BRUNILDA | Routin | | 07/27/2018 10:32 PM | | EXCHANGE | | e | | PDT | + +------+--------+ + + documented as of this encounter Procedures + +--------+ + + + | Procedure Name | Priori | Date/Time | Associated Diagnosis | Comments | | | ty | | | | + +--------+ + + + | XR CHEST AP PORTABLE | STAT | 07/27/2018 | | Results for this | | | | 11:13 PM | | procedure are in the | | | | PDT | | results section. | + +--------+ + + + | TROPONIN I | STAT | 07/27/2018 | | Results for this | | | | 11:12 PM | | procedure are in the | | | | PDT | | results section. | + +--------+ + + + | CBC WITH | STAT | 07/27/2018 | | Results for this | | DIFFERENTIAL | | 11:12 PM | | procedure are in the | | | | PDT | | results section. | + +--------+ + + + | COMPREHENSIVE | STAT | 07/27/2018 | | Results for this | | METABOLIC PANEL | | 11:12 PM | | procedure are in the | | | | PDT | | results section. | + +--------+ + + + | ECG 12 LEAD | STAT | 07/27/2018 | | Results for this | | | | 10:46 PM | | procedure are in the | | | | PDT | | results section. | + +--------+ + + + | ED INFORMATION | Routin | 07/27/2018 | | | | EXCHANGE | e | 10:32 PM | | | | | | PDT | | | + +--------+ + + + +---+--------+ | | | | | Proced | | | ure | | | Note - | | | Eneida, | | | Lab In | | | | | | Hlseve | | | n - | | | | | | 2017 | | | 10:33 | | | PM PDT | | [...] | | | 8 | | | 22:29? | | | NATAEN | | | , | | | NOMAN | | | ICK | | | W?MRN: | | | | | | [id number] | | | [id number] | | | his | | | [...] | | | ent/60 | | | [id number] | | | [phone] | | | [...] | | | int | | | Sep 5, | | | 2018 | | [...] | | monito | | | r Aug | | | 20, | | [...] | | | ified | | | E.D. | | | [...] | | | System | | | 2 0 | | | [facility] | | [...] | | | St. | | | [facility] | | | y | | | Hospit | | | al 5 0 | | | Total | | | 13 0 | | | Note: | | [...] | | | ext. | | | [id number] | | | or go | | [...] | | WILLIA | | | M , | | | M.D. | | | [employer] | | | al | | | [...] | | ia met | | | PRC | | | 4 | | | visits | | | in | | | 60Know | | | n | | | Aliase | | | [...] | +---+--------+ documented in this encounter Results XR Chest AP Portable (07/27/2018 11:13 PM PDT) + + | Specimen | + + | | + + + + + | Narrative | Performed At | + + + | XR CHEST AP PORTABLE 07/27/2018 11:13 PM HISTORY: CHEST PAIN. | [facility] | | COMPARISON: 06/21/2018 Findings: The bilateral lungs are clear | | | with no evidence for pleural effusion or [...] Wolfe MD | | | Electronically signed: 07/27/2018 11:31 PM | | + + + + + | Procedure Note | + + | Eneida, Rad Results In - 07/27/2018 11:35 PM PDT XR CHEST AP PORTABLE 07/27/2018 11:13 PM | | | | HISTORY: CHEST PAIN. | | | | COMPARISON: 06/21/2018 | | | | Findings: | | [...] Alok Wolfe MD | | Electronically signed: 07/27/2018 11:31 PM | + + + +---------+ + + | Performing | Address | City/State/Zipcode | Phone Number | | Organization | | | | + +---------+ + + | [facility] | | | | + +---------+ + + Troponin I (07/27/2018 11:12 PM PDT) + + + + + [...] | | | | | | [employer] | | | | | [...] + | Performing | Address | City/State[facility] | Phone Number | | Organization | | | | + + + + + | [facility] | [address] | [place] | [phone] | | [facility] | | [address] | | | - LABORATORY | | | | + + + + + Comprehensive Metabolic Panel (07/27/2018 11:12 PM PDT) + + + + + + | Component | Value | Ref Range | Performed | Pathologist | | | | | At | Signature | + + + + + + | Na | 137 | 136 - 149 | [facility] | | | | | mmol/L | [facility] | | | | | | MEDICAL | | | | | | CENTER - | | | | | | LABORATORY | | + + + + + + | K | 4.3 | 3.5 - 5.1 | [facility] | | | | | mmol/L | [facility] | | | | | | MEDICAL | | | | | | CENTER - | | | | | | LABORATORY | | + + + + + + | Cl | 103 | 98 - 109 mmol/L | [facility] [...] + + + + | Glucose | 98 | 70 - 109 mg/dL | [facility] | | | | | | [facility] | | | | | | MEDICAL | | | | | | CENTER - | | | | | | LABORATORY | | + + + + + + | BUN | 14 | 7 - 18 mg/dL | [facility] | | | | | | [facility] | | | | | | MEDICAL | | | | | | CENTER - | | | | | | LABORATORY | | + + + + + + | Creatinine | 1.06 | 0.60 - 1.30 | [facility] | [...] mL/min/1.73m2 | [facility] | | | [place] | RATE,ESTIMATED | | MEDICAL | | | | mL/min/1.38u4Ruiv than | | CENTER - | | [...] | 9.5 | 8.3 - 10.5 | [facility] | | | | | mg/dL | [facility] | | | | | | MEDICAL | | | | | | CENTER - | | | | | | LABORATORY | | + + + + + + | Albumin | 4.3 | 3.2 - 5.0 g/dL | [facility] | | | | | | [facility] | | | | | | MEDICAL | | | | | | CENTER - | | | | | | LABORATORY | | + + + + + + | Bilirubin | 1.3Comment: This is an | 0.1 - 1.5 [...] + + | Total | 7.0 | 6.0 - 7.8 g/dL | [facility] | | | Protein | | | [facility] | | | | | | MEDICAL | | | | | | CENTER - | | | | | | LABORATORY | | + + + + + + | AST | 37Comment: This is an | 10 - 42 [...] + + + + | ALT | 37Comment: This is an | 6 - 45 [...] + + + + | Alkaline | 53Comment: This is an | 40 - 110 [...] + + + + | BUN/Creatin | 13.2 | | [facility] | | | ine [...] [address] | [place] | [phone] | | [facility] | | [address] | | | - LABORATORY | | | | + + + + + CBC with Differential (07/27/2018 11:12 PM PDT) + +-------+ + + + | Component | Value | Ref Range | Performed | Pathologist | | | | | At | Signature | + +-------+ + + + | White Blood | 7.2 | 4.0 - 11.0 K/uL | [facility] | | | Cells | | | [facility] | | | | [facility] | | | | | | CENTER - | | | | | | LABORATORY | | + +-------+ + + + | Red Blood | 4.99 | 4.30 - 5.70 | [facility] | | | Cells | | M/uL | [facility] | | | | | | MEDICAL | | | | | | CENTER - | | | | | | LABORATORY | | + +-------+ + + + | Hemoglobin | 17.4 | 13.5 - 18.0 | [facility] | | | | | g/dL | [facility] | | | | | | MEDICAL | | | | | | CENTER - | | | | | | LABORATORY | | + +-------+ + + + | Hematocrit | 49.3 | 40.0 - 51.0 % | [facility] | | | | | | [facility] | | | | | | MEDICAL | | | | | | CENTER - | | | | | | LABORATORY | | + +-------+ + + + | MCV | 98.8 | 83.0 - 101.0 fL | [facility] | | | | | | [facility] | | | | | | MEDICAL | | | | | | CENTER - | | | | | | LABORATORY | | + +-------+ + + + | MCH | 34.9 | 28.0 - 35.0 pg | [facility] | | | | | | [facility] | | | | | | MEDICAL | | | | | | CENTER - | | | | | | LABORATORY | | + +-------+ + + + | MCHC | 35.3 | 32.0 - 36.0 | [facility] | | | | | g/dL | [facility] | | | | | | MEDICAL | | | | | | CENTER - | | | | | | LABORATORY | | + +-------+ + + + | RDW-CV | 13.1 | <15.0 % | [facility] | | | | | | [facility] | | | | | | MEDICAL | | | | | | CENTER - | | | | | | LABORATORY | | + +-------+ + + + | Platelet | 142 | 140 - 440 K/uL | [facility] | | | Count | | | [facility] | | | | | | MEDICAL | | | | | | CENTER - | | | | | | LABORATORY | | + +-------+ + + + | MPV | 9.6 | fL | [facility] | | | | | | [facility] | | | | | | MEDICAL | | | | | | CENTER - | | | | | | LABORATORY | | + +-------+ + + + | % | 60.4 | 45.0 - 82.0 % | [facility] | | | Neutrophils | | | [facility] | | | | | | MEDICAL | | | | | | CENTER - | | | | | | LABORATORY | | + +-------+ + + + | % | 26.6 | 20.0 - 45.0 % | [facility] | | | Lymphocytes | | | [facility] | | | | | | MEDICAL | | | | | | CENTER - | | | | | | LABORATORY | | + +-------+ + + + | % Monocytes | 10.9 | 4.0 - 12.0 % | [facility] | | | | | | [facility] | | | | | | MEDICAL | | | | | | CENTER - | | | | | | LABORATORY | | + +-------+ + + + | % | 1.2 | 0.0 - 5.0 % | [facility] [...] +-------+ + + + | Absolute | 4.40 | 1.80 - 8.50 | [facility] | | | Neutrophils | | K/uL | [facility] | | | | | | MEDICAL | | | | | | CENTER - | | | | | | LABORATORY | | + +-------+ + + + | Absolute | 1.90 | 0.60 - 3.20 | [facility] | [...] + | [facility] | [address] | [place] | [phone] | | [facility] | | [address] | | | - LABORATORY | | | | + + + + + ECG 12 lead (07/27/2018 10:46 PM PDT) + + + + + [...] + + + + | P-R | 216 | ms | [facility] | | | INTERVAL | | | | | + + + + + + | QRS | 106 | ms | [facility] | | | DURATION | | | | | + + + + + + | Q-T | 374 | ms | [facility] | | | INTERVAL | | | | | + + + + + + | Q-T | 415 | ms | [facility] | | | INTERVAL | | | | | | (CORRECTED) | | | | | + + + + + + | P WAVE AXIS | 8 | degrees | [facility] | | + + + + + + | QRS AXIS | 18 | degrees | [facility] | | + + + + + + | T AXIS | -6 | degrees | [facility] | | + + + + + + | INTERPRETAT | Atrial-paced rhythm with | | [facility] | | | ION TEXT | prolonged AV | | | | | | conductionNonspecific T | | | | | | wave abnormality | | | | | | Inferior leadsAbnormal | | | | | | ECGWhen compared with | | | | | | ECG of 01-JUL-2018 | | | | | | 10:41,Nonspecific T wave | | | | | | abnormality Inferior | | | | | | leads is now | | | | | | presentConfirmed by | | | | | | ANGELA MARADIAGA MD ([id number]) | | | | | | on 07/28/2018 6:03:35 AM | | | | + + [...] | aluminum & magnesium | Given | 07/28/20 | 30 mLs | | | | hydroxide-simethicone (MAALOX | | 18 12:22 | | | | | PLUS REGULAR STRENGTH) 200-200-20 | | AM PDT | | | | | mg/5 mL suspension 30 mL 30 mL, | | | | | | | Oral, ONCE, 07/27/18 at 2355, | | | | | | | For 1 dose, Mix lidocaine and | | | | | | | Maalox. Shake well., | | | | | | + +--------+ +--------+------+------+ +---+---+ | | | +---+---+ + +-------+ +--------+---+---+ | aspirin chewable tablet 243 mg | Given | 07/27/20 | 243 mg | | | | 243 mg, Oral, ONCE, Wed07/27/18 | | 18 11:11 | | | | | at 2310, For 1 dose | | PM PDT | | | | + +-------+ +--------+---+---+ +---+---+ | | | +---+---+ + +-------+ +--------+---+---+ | lidocaine (XYLOCAINE) 2% | Given | 07/28/20 | 10 mLs | | | | viscous solution 10 mL 10 mL, | | 18 12:22 | | | | | Oral, ONCE, Wed07/27/18 at 2355, | | AM PDT | | | | | For 1 dose, Mix lidocaine and | | | | | | | MAALOX. Kalia argueta., | | | | | | + +-------+ +--------+---+---+ +---+---+ | | | +---+---+ + +-------+ +------+---+---+ | LORazepam (ATIVAN) injection 1 | Given | 07/27/20 | 1 mg | | | | mg 1 mg, Intravenous, ONCE, Wed | | 18 11:17 | | | | | 07/27/18 at 2310, For 1 dose | | PM PDT | | | | + +-------+ +------+---+---+ +---+---+ | | | +---+---+ + +-------+ +-------+---+---+ | pantoprazole (PROTONIX) DR | Given | 07/28/20 | 40 mg | | | | tablet 40 mg 40 mg, Oral, ONCE, | | 18 12:57 | | | | | Talia 07/28/18 at 0050, For 1 dose, | | AM PDT | | | | | Do not cut or crush., Indication: | | | | | | | Unknown, provider to assess | | | | | | + +-------+ +-------+---+---+ +---+---+ | | | +---+---+ documented in this encounter
--- OUTSIDE RECORDS SUMMARY | ~2020-06-15 | XMS | Encounter Summary ---
Demographics + + + | Address | [address] | | | [place] [address] | + + + | Home Phone [...] Team Providers + +------+ + | Care Pulp Grinder And Blender Name | Role | Phone | + +------+ + PCP | Unavailable | + +------+ + Encounter Details +--------+ + + + + | Date | Type | Department | Care Team | Description | +--------+ + + + + | 01/21/ | Emergency | [facility] | Kirill Dominique | Unspecified Chest | | 2009 | | [facility] | MD Jon[address] | Pain | | | | EM[facility] | [place] | | | | | [address] | [address] | | | | | [facility] [place] | [phone] | | | | | [address] | | | | | | [phone] | | | +--------+ + + + [...] [place], | | | | | | [place] [address] | | | | | | [phone] | | | | | | | | +--------+ + + + + documented as of this encounter Visit Diagnoses + + | Diagnosis | + + | Chest pain, unspecified | + + documented in this encounter"
--- OUTSIDE RECORDS SUMMARY | ~2020-06-15 | XMS | Encounter Summary ---
Demographics + + + | Address | [address] | | | [place] [address] | + + + | Home Phone [...] Team Providers + +------+ + | Care Shoe Associate Name | Role | Phone | + +------+ + | Michael Amanda DO | PCP | | + +------+ + Reason for Visit + +--------+ + | Reason | Onset | Comments | | | Date | | + +--------+ + | Appointment | 08/14/ | | | | 2012 | | + +--------+ + Encounter Details +--------+ + + + + | Date | Type | Department | Care Team | Description | +--------+ + + + + | 08/14/ Telephone | [facility] | Michael Amanda, | Appointment | | 2012 | | GROUP IM[facility]ING [address] | DO [address] | | | | | [facility] | [place], [place] | | | | | [place], [place] | [address] | | | | | [address] | | | | | | [phone] | | | +--------+ + + + [...] encounter Miscellaneous Notes Telephone Encounter - Shea Knapp - 08/15/2013 11:11 AM PDTCalled patient. Scheduled for 08/17/13. Shea Knapp elephone Encounter - Tawana Malik - 08/14/2013 10:15 AM PDTCalled patient left message to call back re, test r esults elevated sodium very low Testosterone need an appointment to discuss treatment per Dr Juan Diego amanda Please schedule an appointment for this week thanks documented in this encounter Plan of Treatment [...] | | | | | | [place] [address] | | | | | | [phone] | | | | | | | | +--------+ + + + + documented as of this encounter Visit Diagnoses Not on filedocumented in this encounter"
--- OUTSIDE RECORDS SUMMARY | ~2020-06-15 | XMS | Encounter Summary ---
Demographics + + + | Address | [address] | | | [place] [address] | + + + | Home Phone [...] Providers + +------+ + | Care Forming Department Supervisor Name | Role | Phone [...] 2014 | | CARDIOLOGY [address] | LUNCHROOM AIDE [address] | | | | | [place], | [place], [place] | | | | | [place] [address] | [address] | | | | | [phone] | | | +--------+ + + + [...] | | | | | | [place] [address] | | | | | | [phone] | | | | | | | | +--------+ + + + + documented as of this encounter Visit Diagnoses Not on filedocumented in this encounter"
--- OUTSIDE RECORDS SUMMARY | ~2020-06-15 | XMS | Encounter Summary ---
Demographics + + + | Address | [address] | | | [place] [address] | + + + | Home Phone [...] Team Providers + +------+ + | Care Apartment Leasing Specialist Name | Role | Phone | + +------+ + | Michael Amanda DO | PCP | | + +------+ + Reason for Visit +--------+--------+ + | Reason | Onset | Comments | | | Date | | +--------+--------+ + | Other | 10/25/ | patient has changed his mind | | | 2013 | | +--------+--------+ + Encounter Details +--------+ + + + + | Date | Type | Department | Care Team | Description | +--------+ + + + + | 10/25/ | Telephone | [facility] | Silvia, | Other (patient has | | 2013 | | CARDIOLOGY [address] | PARISA Vernon [address] | changed his mind) | | | | [place], | [place], | | | | | [place] [address] | [place] [address] | | | | | [phone] | [phone] | | | | | | | [...] encounter Miscellaneous Notes Telephone Encounter - Darlene Tiraod RN - 10/25/2014 3:43 PM PSTReferral given to PSR . ..........................................Darlene Tirado RN on 10/25/2014 at 15:43 elephone Encounter - Janeen Ramirez ARNP - 10/25/2014 3:30 PM PSTHe was ablated by Dr. Gambino. Send him th ere for Dx: Symptomatic PVC's Electronically signed by: PARISA Russell 10/25/2014 15:32 elephone Encounter - Darlene Tirado RN - 10/25/2014 10:47 AM PSTFred called, he states that at his last nayan ointment with Janeen he was referred to [facility] but had declined at that time. He has since changed his mind and would like to be referred again. I will consult Janeen to see who she would like to refer him to and for what diagnosis. ....................................... ....Darlene Tirado RN on 10/25/2014 at 10:48 documented in this encounter Plan of Treatment [...] | | | | | | [place] [address] | | | | | | [phone] | | | | | | | | +--------+ + + + + documented as of this encounter Visit Diagnoses Not on filedocumented in this encounter"
--- OUTSIDE RECORDS SUMMARY | ~2020-06-15 | XMS | Encounter Summary ---
Demographics + + + | Address | [address] | | | [place] [address] | + + + | Home Phone [...] Team Providers + +------+ + | Care Resident Physician In Radiology Name | Role | Phone | + +------+ + | Kirk French MD | PCP | | + +------+ + Reason for Visit +--------+--------+ + | Reason | Onset | Comments | | | Date | | +--------+--------+ + | Other | 03/21/ | | | | 2018 | | +--------+--------+ + Encounter Details +--------+ + + + + | Date | Type | Department | Care Team | Description | +--------+ + + + + | 03/21/ | Telephone | [facility] [place] | Emmanuel Daniel MD | Other | | 2019 | | GASTROENTEROLOGY | [address], [place] | | | | | [address] [place] | [address] [place], [place] | | | | | [address] [place], [place] | [address] | | | | | [address] | | | | | | [phone] | | | +--------+ + + + [...] We see a referral to [facility] that was submitted e arash this year. Dr. Daniel felt we could [...] guevara on a referral to [facility] and it shouldn't take this long, meanwhile [...] | | | | | | [place] [address] | | | | | | [phone] | | | | | | | | +--------+ + + + + documented as of this encounter Visit Diagnoses + + | Diagnosis | + + | Incontinence of feces, unspecified fecal incontinence type - Primary | + + | Diarrhea, unspecified type | + + documented in this encounter"
--- OUTSIDE RECORDS SUMMARY | ~2020-06-15 | XMS | Encounter Summary ---
Demographics + + + | Address | [address] | | | [place] [address] | + + + | Home Phone [...] Team Providers + +------+ + | Care Toddler Nanny Name | Role | Phone | + +------+ + | Kirk French MD | PCP | | + +------+ + Reason for Visit +--------+--------+ + | Reason | Onset | Comments | | | Date | | +--------+--------+ + | Other | 08/06/ | issues with edema and chest pain | | | 2014 | | +--------+--------+ + Encounter Details +--------+ + + + + | Date | Type | Department | Care Team | Description | +--------+ + + + + | 08/06/ | Telephone | [facility] | Geri Angel, | Other (issues with | | 2014 | | CARDIOLOGY [address] | OFFICE INSPECTOR [address] | edema and chest | | | | [place], | [place], [place] | pain) | | | | [place] [address] | [address] | | | | | [phone] | | | +--------+ + + + [...] Telephone Encounter - Darlene Tirado RN - 08/06/2015 3:29 PM PDTFred called from [place] [facility] to report that he is having a lot of edema in his legs and a lot of chest pain. He was adv ised that we can not treat him over the phone especially when [place]. He would like to arrange an appointment to be seen when he gets back home. He was last seen by Geri but would prefer to see Janeen if she is available. This is arranged for him ........ ...................................Darlene Tirado RN on 08/06/15 at 15:32 documented in this encounter Plan of Treatment [...] | | | | | | [place] [address] | | | | | | [phone] | | | | | | | | +--------+ + + + + documented as of this encounter Visit Diagnoses Not on filedocumented in this encounter"
--- OUTSIDE RECORDS SUMMARY | ~2020-06-15 | XMS | Encounter Summary ---
Demographics + + + | Address | [address] | | | [place] [address] | + + + | Home Phone [...] Team Providers + +------+ + | Care Extract Operator Name | Role | Phone | + +------+ + PCP | Unavailable | + +------+ + Encounter Details +--------+ + + + + | Date | Type | Department | Care Team | Description | +--------+ + + + + | 10/29/ | Hospital | [facility] | Pia Akhtar | | | 2003 | Encounter | CON[address] | [address] | | | | | [address] | [address] | | | | | [place] [address] | [place] [address] | | | | | [address] | [phone] | | | | | [phone] | | | +--------+ + + + [...] | | | | | | [place] [address] | | | | | | [phone] | | | | | | | | +--------+ + + + + documented as of this encounter Visit Diagnoses Not on filedocumented in this encounter"
--- OUTSIDE RECORDS SUMMARY | ~2020-06-15 | XMS | Encounter Summary ---
Demographics + + + | Address | [address] | | | [place] [address] | + + + | Home Phone [...] Team Providers + +------+ + | Care Telecommunications Support Name | Role | Phone | + [...] + + | 11/03/ | Refill | [facility] | Kirk French | Medication Refill | | 2019 | | [facility] | MD [address] | | | | | [facility] [address] | [address] | | | | | [address] | [place] [address] | | | | | [place], [place] | [phone] | | | | | [address] | | | | | | [phone] | | | +--------+--------+ + + + [...] Miscellaneous Notes Telephone Encounter - Geri Bear Correspondence Renew Clerk - 11/03/2019 10:05 AM PSTRefill Shanell ctronically signed by Geri Bear Correspondence Renew Clerk at 11/03/2019 10:05 AM PSTdocumented in this encounter Plan of [...] | | | | | | [place] [address] | | | | | | [phone] | | | | | | | | +--------+ + + + + documented as of this encounter Visit Diagnoses Not on filedocumented in this encounter"
--- OUTSIDE RECORDS SUMMARY | ~2020-06-15 | XMS | Encounter Summary ---
Demographics + + + | Address | [address] [place] [address] [address] | | | [place] [address] | + + + | Home Phone [...] [place] | | | | | [address] | | + + + + + Care Team Providers + +------+ + | Care Sourcing Consultant Name | Role | Phone | + +------+ + | Darion Holden DO | PCP | | + +------+ + Reason for Visit + + + | Reason | Comments | + + + | Care Coordination | capsule referral | + + + Encounter Details +--------+ + + + + | Date | Type | Department | Care Team | Description | +--------+ + + + + | 01/22/ | Telephone | [facility] | Nurse, [address] | Care Coordination | | 2020 | | Center at [facility] [address] | [facility] | (capsule referral) | | | | [facility] | Road [place], [place] | | | | | for Health and | [address] | | | | | [facility] | | | | | | [place], [place] | | | | | | [address] | | | | | | [phone] | | | +--------+ + + + [...]
--- OUTSIDE RECORDS SUMMARY | ~2020-06-15 | XMS | Encounter Summary ---
Demographics + + + | Address | [address] | | | [place] [address] | + + + | Home Phone [...] Team Providers + +------+ + | Care Acid Supervisor Name | Role | Phone [...] + | 01/03/ | Office | [facility] | [place], | CAD (coronary artery | | 2012 | Visit | CARDIOLOGY [address] | Janeen, CHEMICAL SPRAYER [address] | disease) (Primary | | | | [place], | [place], | Dx); Bradycardia; | | | | [place] [address] | [place] [address] | HTN (hypertension); | | | | [phone] | [phone] | Lightheadedness | | | | | [...] tablet Take 1,000 mg by mouth Daily. [place]-3 Fatty Acids (SALMON OIL-1000 PO) CAPS, [...] himself t o the emergency department at [facility] in [place], [place]. EKG showed normal s inus rhythm [...] Refer patient to an electrophysiology specialist in [place] for further evaluation for P VC's ablation. I have given verbal instructions and written material for patient to read mo re about the procedure. 2. Check blood pressure and pulse twice daily for two weeks and return the log to our offic e. 3. Followup appointment after patient's appointment with floral specialist/ablation. I, PARISA Russell, saw this patient under the direct supervision of Daljit Singletary MD Portions of this report were transcribed using voice recognition software. Every effort wa s made to ensure accuracy; however, inadvertent computerized production zone leader errors may be pre sent. documented in [...] W | | | | | | [place], | | | | | | [place] [address] | | | | | | [phone] | | | | | | | | +--------+ + + + + documented as of this encounter Visit Diagnoses + + | Diagnosis | + + | CAD (coronary artery disease) - Primary Coronary atherosclerosis of unspecified type | | of vessel, little traverse or graft | + + | Bradycardia Other specified cardiac dysrhythmias | + + | HTN (hypertension) Unspecified essential hypertension | + + | Lightheadedness Dizziness and giddiness | + + documented in this encounter
--- OUTSIDE RECORDS SUMMARY | ~2020-06-15 | XMS | Encounter Summary ---
Demographics + + + | Address | [address] | | | [place] [address] | + + + | Home Phone [...] Providers + +------+ + | Care Patient Insurance Clerk Name | Role | Phone | [...] + + | 06/04/ | Hospital | [facility] | Sariah, | Cervical spinal | | 2016 | Encounter | MED CTR XRAY [address] | [place], [address] | stenosis | | | | [place] | [address] | | | | | [place] [address] | [place] [address] | | | | | [phone] | [phone] | | | | | | | [...] W | | | | | | [place], | | | | | | [place] [address] | | | | | | [phone] | | | | | | | [...] + | Kalpesh Brown Results In - 06/04/2016 1:30 PM PDT [...]
--- OUTSIDE RECORDS SUMMARY | ~2020-06-15 | XMS | Encounter Summary ---
Demographics + + + | Address | [address] | | | [place] [address] | + + + | Home Phone [...] Providers + +------+ + | Care Registered Radiographer Name | Role | Phone | + [...] | 02/15/ | Office | [facility] [place] | [place], | Symptomatic PVCs | | 2012 | Visit | CARDIOLOGY [address] | PARISA Vernon [address] | (Primary Dx); | | | | [place], | [place], | Bradycardia; HTN | | | | [place] [address] | [place] [address] | (hypertension) | | | | [phone] | [phone] | | | | | | | [...] Ramirez ARNP - 02/15/2013 9:30 AM PDT1. Cardizem CD 120 mg o nce a day [...] at which time patient was going to [place] for assistance specialist co nsult and PVC ablation. Since [...] tablet Take 1,000 mg by mouth Daily. [place]-3 Fatty Acids (SALMON OIL-1000 PO) CAPS, one [...] ventricular arrhythmia performed by Dr. Gambino at [facility] on 01/30/2013. Patient had spontaneous PVCs [...] to go back in 3 days to [place] for an attempt of ablation under general [...] He is in a class II of [place] [employer] functional class. There is no [...] been encouraged to keep his appointment with assistance specialist this coming y to attempt ablation therapy. 4. Follow up appointment in 4-6 weeks. IJaneen ARNP, saw this patient under the direct supervision of Daljit Singletary MD Portions of this report were transcribed using voice recognition software. Every effort wa s made to ensure accuracy; however, inadvertent computerized agriscience technology instructor errors may be pre sent. documented in [...] W | | | | | | [place], | | | | | | [place] [address] | | | | | | [phone] | | | | | | | [...]
--- OUTSIDE RECORDS SUMMARY | ~2020-06-15 | XMS | Encounter Summary ---
Demographics + + + | Address | [address] | | | [place] [address] | + + + | Home Phone [...] Providers + +------+ + | Care Education Associate Name | Role | Phone | [...] [place] | | | | | [address] | [address] | | | | | [phone] | | | +--------+ + + + [...] 1:53 PM Irasema Uriarte notified . [facility] - [...] otherwise, he'll see Dr Uriarte morning in [facility] as scheduled. Electronical ly signed by [...] FROM DR. FIGUEROA NURSE. PLEASE ADVISE AT [phone].Electronically sign ed by Renetta Dewitt at 04/10/2019 [...] | | | | | | [place] [address] | | | | | | [phone] | | | | | | | | +--------+ + + + + documented as of this encounter Visit Diagnoses Not on filedocumented in this encounter"
--- OUTSIDE RECORDS SUMMARY | ~2020-06-15 | XMS | Encounter Summary ---
Demographics + + + | Address | [address] | | | [place] [address] | + + + | Home Phone [...] Team Providers + +------+ + | Care Greenskeeper Supervisor Name | Role | Phone | [...] [address] | | | | | [place], | [place], | | | | | [place] [address] | [place] [address] | | | | | [phone] | [phone] | | | | | | | [...] | | | | | | [place] [address] | | | | | | [phone] | | | | | | | [...]
--- OUTSIDE RECORDS SUMMARY | ~2020-06-15 | XMS | Encounter Summary ---
Demographics + + + | Address | [address] | | | [place] [address] | + + + | Home Phone [...] Team Providers + +------+ + | Care Truck Body Builder Apprentice Name | Role | Phone | [...] [address] | | | | | [place], | [place], | | | | | [place] [address] | [place] [address] | | | | | [phone] | [phone] | | | | | | | [...] | | | | | | [place] [address] | | | | | | [phone] | | | | | | | [...] | + +-------+ + + + | Albumin/Sadnee | 1.7 | | [facility] | | [...] + | [address] | [address] | [place] | [phone] | | [facility] | | [address] | | | - [...]
--- OUTSIDE RECORDS SUMMARY | ~2020-06-15 | XMS | Encounter Summary ---
Demographics + + + | Address | [address] | | | [place] [address] | + + + | Home Phone [...] Team Providers + +------+ + | Care Slackline Operator Name | Role | Phone | [...] | | | | exertion | | [address] [place] | | | | | Chest pain | | [place], [place] | | | | | on exertion | | [address] | | | | | | | Phone: | | | | | | | [phone] | | | | | | | Fax: | | | | | | | [phone] | +--------+--------+ + + + + Encounter Details +--------+ + + + + | Date | Type | Department | Care Team | Description | +--------+ + + + + | 04/27/ | [facility] | [facility] | Martell Hart | Chest pain on | | 2014 - | | [facility] | Sanjay Palacios MD | exertion (Primary | | | | [address] [place] | [address] | Dx); Dyspnea on | | 03/20/ | | [place] [address] | [place], [place] | exertion; Essential | | 2014 | | [phone] | [address] | hypertension; Acute | | | | | | chest pain; | | | | | Parth Kraft, | Dizziness, | | | | | [address] | nonspecific; Mixed | | | | | [place], [place] | anxiety depressive | | | | | [address] | disorder; PUD | | | | | [phone] | (peptic ulcer | | | | [...] might be different f rom the original. [facility] DISCHARGE SUMMARY Pt. Name/Age/: Moe Sanchez [...] mg by mouth as needed. aka: BENADRYL Clarendon Lyman 550 MG Caps Take by mouth. [...] 911 aka: NITROSTAT ONE TOUCH DELICA LANCETS [facility] [place] glucose as needed for hypoglycemia OSTEO [...] Daily. to reduce urinary frequency - Lot #[id number], exp 07/2016 aka: RAPAFLO UNCODED MEDICATION - [...] hospital follow up Contact information: Eva Librado [facility] [address] [facility] [address] Call PARISA Russell. Specialty: Nurse Practitioner Why: As needed Contact information: [address] [place] [address] Condition: Patient being discharged with condition improved. Diet: Heart healthy, avoid acidic drinks and foods, spicy foods, too much coffee. Greater than 30 minutes were spent on discharge and coordination of post-hospital care. Electronically signed by: Thierry Fregoso DO, 03/20/2015 11:22 [facility] Portions of this chart may have been created with [employer] voice recognition software. Occasi onal wrong-word or [...] afford the prescribed medication, you can try tsdf-zgf-sugatdv acid blockers, such as Pepcid AC, Tagamet, [...] or as directed by your healthcare provider [phone] [employer]. [address] [place] [address], [place] [address]. All righ ts reserved. This information is [...] + + + +---------+ + + | Lapel-3 Fatty | CAPS, one capsule by | [...] | | | | | | | #[id number], exp 07/2016 | | | | | [...] DO - 03/19/2015 10:09 PM PDT . [facility] PROGRESS NOTE Patient: Moe Sanchez : 1960: Age: 55 y.o. MedRec: [id number] PCP: Kirk French Admission date: 03/18/2015 Hospital [...] 1708 03/18/15 1528 TROPONINI <0.01 <0.01 0.01 [facility] ECHOCARDIOGRAM REPORT STUDY DATE: 03/19/2015 PATIENT [...] changes. No results for input(s): PHART, PO2ART, KIL7RZB, FPN3USK, BEART, H5UVMWIQ in the last 168 h ours. No results for input(s): SPECSOURCE, PHPOCB, HCO3, TCO2, BEART, BE, RYCQ5DDO in the last 16 8 hours. Invalid input(s): EFOFE5OT, OJGX4JX Point of care glucose: No results for [...] minutes today. Thierry Fregoso DO 03/19/2015 22:09 [facility] Portions of this chart may have been created with [employer] voice recognition software. Occasi onal wrong-word or sound-alike substitutions may have occurred due to the inherent granger itations of voice recognition software. Please read the chart carefully and recognize, using context, where these substitutions have occurred Belén Cho RN - 03/19/2015 11:03 AM [id number] Report given to Marlen morejon who is assuming care. Electronically signed by: Jaja Hay RN 03/19/2015 11:04 ieter Callejas RN - 03/19/2015 10:44 AM PDTAssumed care of patient, received report from MONROE Wilkinson. documented in t his encounter H&P Notes Parth Kraft MD - 03/18/2015 8:45 PM PDTFormatting of this note might be different f rom the original. [facility] HISTORY AND PHYSICAL Pt. [...] mouth Daily. Qty: 30 tablet, Refills: 6 [facility] Natural Products (OSTEO BI-FLEX/5-LOXIN ADVANCED PO) Take [...] call 911 Qty: 25 tablet, Refills: 11 Lapel-3 Fatty Acids (SALMON OIL-1000 PO) CAPS, one capsule by mouth daily twice daily ONE TOUCH DELICA LANCETS [facility] Check glucose as needed for hypoglycemia Qty: [...] mouth Daily. to reduce urinary frequency Lot #[id number], exp 07/2016 Qty: 21 capsule, Refills: 0 UNCODED MEDICATION Diagnosis: Obstructive Sleep Apnea ICD-9: 327.23 Length of Need: 99 Months Qty: 1 Device, Refills: 0 Comments: A7033 -Nasal Pillows, B1240-Lkipn Mask, A7030- Full Face Mask, B6409-Pgewzw Humi difier, X1186-Dfkhac Tubing, Y2200-Vxjegeii, C1845-Fpoclogou A7039/Z3191-Xixuens valACYclovir (VALTREX) 500 mg tablet take 1 [...] this chart may have been created with [employer] voice recognition software. Occasi onal wrong-word or [...] No acute ischemic changes. [facility] Notes Martell Hart MD - 03/18/2015 3:17 PM PDTFormatting of this note might be d ifferent from the original. [facility] Moe Sanchez Emergency Department Encounter Note [address] [place] [id number] PCP:Kirk French [phone] eMERGENCY dEPARTMENT eNCOUnter CHIEF [...] TABLET Take 1 tablet by mouth Daily. [facility] NATURAL PRODUCTS (OSTEO BI-FLEX/5-LOXIN ADVANCED PO) Take [...] [facility] Check glucose as needed for hypoglycemia PANTOPRAZOLE (PROTONIX) 40 MG TABLET Take 1 tablet by mouth Daily. PRAVASTATIN (PRAVACHOL) 40 MG TABLET take 1 tablet by mouth once daily PROMETHAZINE (PHENERGAN) 25 MG TABLET Take 25 mg by mouth every 8 hours as needed. SILODOSIN (RAPAFLO) 8 MG CAPS Take 1 capsule by mouth Daily. to reduce urinary frequenc y Lot #[id number], exp 07/2016 UNCODED MEDICATION Diagnosis: Obstructive Sleep [...] deficits noted, no facial assymetry noted. 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 EKG Interpretation Interpreted by emergency department physician Rhythm: electric pacemaker. Rate: 73 [place]: normal Ectopy: none Conduction: P wave normal, [...] this chart may have been created with [employer] voice recognition software. Occasi onal wrong-word or [...] Summary & Review . Discharge planning; R/O ND, 24 OBS. Amilcar lives in [place], [place] with his and two b eloved Rottweilers. He is hoping to be discharged home today. He has his own vehicle in [facility]. He sees Whit Segovia at the Pain [...] Summary & Review . Pt arrived to [facility] at 2114 with no c/o pain. His [...] | | | | | | [place] [address] | | | | | | [phone] | | | | | | | [...] Performed At | + + + | [facility] ECHOCARDIOGRAM REPORT | | | STUDY [...] | | Signed by: Daljit Singletary MD [facility] 03/19/2015 15:44 | | | Locomotive Switch Operator: Dewey Valdez RDMS | | + + [...] + | [facility] | [address] | [place] | [phone] | | [facility] | | [address] | | | - LABORATORY | | [...] mL/min/1.73m2 | [facility] | | | GUAMANIAN | RATE,ESTIMATED | | MEDICAL | | | | mL/min/1.03p3Cijp than | | CENTER - | | [...] ST. | [address] | [place], [place] | [phone] | | [facility] | | [address] | | | - LABORATORY | | [...] [address] | [place] | [phone] | | [facility] | | [address] | | | - LABORATORY | | [...] [address] | [place] | [phone] | | [facility] | | [address] | | | - LABORATORY | | [...] [address] | [place] | [phone] | | [facility] | | [address] | | | - LABORATORY | | [...] MEDICAL | | | | | | [facility] [place] - | | | | | | [...] [address] | [place] | [phone] | | [facility] | | [address] | | | - LABORATORY | | [...] [address] | [place] | [phone] | | [facility] | | [address] | | | - LABORATORY | | [...] [address] | [place] | [phone] | | [facility] | | [address] | | | - LABORATORY | | [...] | + + + + + | [facility] | [address] | [place] | [phone] | | [facility] | | [address] | | | - LABORATORY | | [...] [facility] | | | | | | [facility] | | | | | | MEDICAL | | | | | | [facility] [place] - | | | | | | LABORATORY | | + +-------+ + + + + + | Specimen | + + | Blood | + + + + + + + | Performing | Address | City/State/Zipcode | Phone Number | | Organization | | | | + + + + + | [facility] | [address] | [place] | [phone] | | [facility] | | [address] | | | - LABORATORY | | [...] | mL/min/1.73m2 | [facility] | | | GUAMANIAN | RATE,ESTIMATED | | MEDICAL | | | | mL/min/1.84u3Wnrn than | | CENTER - | | [...] ST. | [address] | [place], [place] | [phone] | | [facility] | | [address] | | | - LABORATORY | | [...] | | Lymphocytes | | | [facility] | | | | | | MEDICAL [...] [address] | [place] | [phone] | | [facility] | | [address] | | | - LABORATORY | | [...]
--- OUTSIDE RECORDS SUMMARY | ~2020-06-15 | XMS | Encounter Summary ---
Demographics + + + | Address | [address] | | | [place] [address] | + + + | Home Phone [...] Providers + +------+ + | Care Fuel Oil Clerk Name | Role | Phone | [...] RN | | | | | [place] | | | | | | [place] [address] | | | | | | [phone] | | | +--------+ + + + [...] | | | | | | [place] [address] | | | | | | [phone] | | | | | | | | +--------+ + + + + documented as of this encounter Visit Diagnoses Not on filedocumented in this encounter"
--- OUTSIDE RECORDS SUMMARY | ~2020-06-15 | XMS | Encounter Summary ---
Demographics + + + | Address | [address] | | | [place] [address] | + + + | Home Phone [...] Team Providers + +------+ + | Care Stained Glass Window Designer Name | Role | Phone | + +------+ + | Michael Amanda DO | PCP | | + +------+ + Encounter Details +--------+ + + + + | Date | Type | Department | Care Team | Description | +--------+ + + + + | 09/22/ | Hospital | [facility] | Bahman Gant MD | | | 2012 | Encounter | MED CTR XRAY [address] | [address] | | | | | [place] | [address] [place] | | | | | [place] [address] | [place] [address] | | | | | [phone] | [phone] | | | | | | | [...] + + +---------+ + + | [place]-3 Fatty | CAPS, one capsule by | [...] | | | | | | [place] [address] | | | | | | [phone] | | | | | | | | +--------+ + + + + documented as of this encounter Visit Diagnoses Not on filedocumented in this encounter"
--- OUTSIDE RECORDS SUMMARY | ~2020-06-15 | XMS | Encounter Summary ---
Demographics + + + | Address | [address] | | | [place] [address] | + + + | Home Phone [...] Team Providers + +------+ + | Care Pmp Certified Project Manager Name | Role | Phone [...] | ER FUP | [address] | [address] | | | | | Procedures | [place], | [place], | | | | | F[place] | [place] [address] | [place] [address] | | | | | | Phone: | Phone: | | | | | | [phone] | [phone] | | | | | | Fax: | Fax: | | | | | | [phone] | [phone] | +--------+--------+ + + + + Encounter Details +--------+---------+ + + + | Date | Type | Department | Care Team | Description | +--------+---------+ + + + | 02/11/ | Office | [facility] [place] | [place], | Coronary artery | | 2017 | Visit | CARDIOLOGY [address] | [place] [address] | disease involving | | | | [address] [place], | [address] [place], | y[place]aviatam coronary | | | | [place] [address] | [place] [address] | artery of yuhaaviatam | | | | [phone] | [phone] | heart without angina | | | [...] of non-critical coronary artery d isease involving yuhaaviatam coronary artery of yuhaaviatam heart without angina pectoris, essential h ypertension, [...] him. He sleeps on 1 pillow at [facility] without any shortness of breath. Overall, [...] Preventative health care Coronary artery disease involving yuhaaviatam coronary artery of yuhaaviatam heart without angina pectoris Cannabis abuse, daily [...] 3RD DOSE, CALL 911 100 tablet 3 [place]-3 Fatty Acids (SALMON OIL-1000 PO) CAPS, [...] was found Confirmed by ANGELA MARADIAGA MD ([id number]) on 01/25/2017 6:45:26 AM LAB RESULTS reviewed during visit today primarily from [facility]: LIPID Lab Results Component Value Date [...] PLTEX 162 11/05/2016 I reviewed records from [facility] for emergency department visit o n 01/2017 which is summarized in the HPI. Above data and testing is reviewed this visit; testing below is historical data unless othe rwise specified. ASSESSMENT: 1. Essential hypertension with goal blood pressure less than 130/80: A. Today it has been well controlled 110 mmHg. He is in class I of t he [employer] functional class. On physical examination there are no signs of fluid overload. 2. Non-critical Coronary artery disease involving yuhaaviatam coronary a rtery of yuhaaviatam heart without angina pectoris: A. Normal exercise sestamibi stress test on 05/25/09. LVEF by [facility] ed SPECT was 53%. B. Echocardiogram [...] atrial contractions, including rare couplets; very frequent babrara ature ventricular contractions with occasional ventricular bigeminy noted. B. EP study and ablation for ventricular arrhythmia performed by Dr. Gambino at [facility] on 01/30/2013. Patient had spontaneous [...] to go back in 3 days to [place] for an attempt of ablation under general [...] normal stable device function. Estimated remaining [facility] longevity is 3.5 years.. 5. [...] this chart may have been created with [employer] voice recognition software. Occasi onal wrong-word or [...] | 10/30/ | Office | Cardiology | [place], | | | 2019 | Visit | | PARISA [place] [address] | | | | | | [place], | | | | | | [place] [address] | | | | | | [phone] | | | | | | | | +--------+ + + + + documented as of this encounter Visit Diagnoses + + | Diagnosis | + + | Coronary artery disease involving yuhaaviatam coronary artery of yuhaaviatam heart without | | angina pectoris - Primary | + + | Essential hypertension with goal blood pressure less than 130/80 | + + | Hyperlipidemia, mixed Mixed hyperlipidemia | + + documented in this encounter
--- OUTSIDE RECORDS SUMMARY | ~2020-06-15 | XMS | Encounter Summary ---
Demographics + + + | Address | [address] | | | [place] [address] | + + + | Home Phone [...] Providers + +------+ + | Care Data Integrity Consultant Name | Role | Phone | + +------+ + PCP | Unavailable | + +------+ + Encounter Details +--------+ + + + + | Date | Type | Department | Care Team | Description | +--------+ + + + + | 01/14/ | Hospital | [facility] | Benji, | BACKACHE NOS | | 2004 | Encounter | [facility] | MD [address] | | | | | CLINICAL DECISION | S[place]AN MANZO | | | | | [address] | [place] [address] | | | | | [place], [place] | [phone] | | | | | [address] | | | | | | [phone] | | | +--------+ + + + [...] | | | | | | [place] [address] | | | | | | [phone] | | | | | | | | +--------+ + + + + documented as of this encounter Visit Diagnoses + + | Diagnosis | + + | Backache, unspecified | + + documented in this encounter"
--- OUTSIDE RECORDS SUMMARY | ~2020-06-15 | XMS | Encounter Summary ---
Demographics + + + | Address | [address] | | | [place] [address] | + + + | Home Phone [...] Providers + +------+ + | Care Senior Civil Engineer Name | Role | Phone | [...] Daljit Singletary, | Symptomatic PVCs | | 2017 | Support | CARDIOLOGY [address] | (Primary Dx); | | | | [place], | [place], | Tachycardia; | | | | [place] [address] | [place] [address] | Coronary artery | | | | [phone] | [phone] | disease involving | | | | | | [place] coronary | | | | | | artery of [place] | | | | | | heart [...] | | | | | | [place] [address] | | | | | | [phone] | | | | | | | [...] involving | | | | | | [place] coronary | | | | | | artery of [place] | | | | | | heart [...] MD | | | | | | ([id number]) on 06/29/2018 | | | | | [...] + + | Coronary artery disease involving [place] coronary artery of [place] heart without | | angina pectoris | + + | Hypertension, unspecified type | + + documented in this encounter"
--- OUTSIDE RECORDS SUMMARY | ~2020-06-15 | XMS | Encounter Summary ---
Demographics + + + | Address | [address] | | | [place] [address] | + + + | Home Phone [...] Providers + +------+ + | Care Superintendent Division Name | Role | Phone | + +------+ + | Kirk French MD | PCP | | + +------+ + Encounter Details +--------+ + + + + | Date | Type | Department | Care Team | Description | +--------+ + + + + | 12/24/ | [facility] | [facility] | Emmanuel Daniel MD | Pain of upper | | 2018 | Encounter | MED CTR MP INTRA OP | [address], [place] | abdomen (Primary | | | | [address] | [address] [place], [place] | Dx); Functional | | | | [place], [place] | [address] | diarrhea; Weight | | | | [address] | | loss | | | | [phone] | | | +--------+ + + + [...] + + + +---------+ + + | [place]-3 Fatty | CAPS, one capsule by | [...] signed we'll proceed with upper endoscopy colonoscopy arriEmmanuel MD - 12/02/2017 2:30 PM PST Moe [...] any noct urnal symptoms. He was in [facility] 2 years ago and required hospitalization [...] severe diarrhea probable infective occurring while visiting [facility] Diarrhea etiology and significance to [...] 1:58 PM PSTD-C Instructions Provation - Emmanuel aDniel MD - 12/24/2017 1:19 PM PSTDischarge Instructions for Upper Endoscopy Patient: Moe Sanchez : 1960 Acct: [id number] Exam Date: Sunday, December 24, 2017 Doctor: [...] If unable to reach your physician, call [facility] Emergency Department at [address] Your doctor [...] at 2:02 PM PSTD-C Instructions Provation - Emmaneul Daniel MD - 12/24/2017 1:17 PM P STDischarge Instructions for Colonoscopy Exams Patient: Moe Sanchez : 1960 Acct: [id number] Exam Date: Sunday, December 24, 2017 Doctor: [...] If unable to reach your physician, call [facility] Emergency Department at [address] Your doctor [...] | | | | | | [place] [address] | | | | | | [phone] | | | | | | | [...] + + | Performed at: 01 - [facility] [address], | REFERENCE LAB | | [place], [place] [id number] Kiln Tester: William Andrew MD, Phone: | ARSH - KINA | | [phone] | | + + + + + + + + | Performing | Address | City/State/Zipcode | Phone Number | | Organization | | | | + + + + + | REFERENCE LAB | [address] | [place], [place] | [phone] | | [facility] | [place] | [address] | | + + + + + [...] [address] | [place] | [phone] | | [facility] | | [address] | | | - LABORATORY | | [...] [address] | [place] | [phone] | | [facility] | | [address] | | | - LABORATORY | | [...] [address] | [place] | [phone] | | [facility] | | [address] | | | - LABORATORY | | [...] + + | Performed at: 01 - [place] [address], | REFERENCE LAB | | [place], [place] [id number] Kiln Tester: William Andrew MD, Phone: | ARSH CASTANON | | [phone] | | + + + + + + + + | Performing | Address | City/State/Zipcode | Phone Number | | Organization | | | | + + + + + | REFERENCE LAB | [address] | [place], [place] | [phone] | | [facility] | Drive [facility] | [address] | | + + + + + [...] ST. | [address] | [place], [place] | [phone] | | [facility] | | [address] | | | - LABORATORY | | [...] [address] | [place] | [phone] | | [facility] | | [address] | | | - LABORATORY | | [...] | dium | | | [address] | | | Antigen | | [...] [address] | [place] | [phone] | | [facility] | | [address] | | | - LABORATORY | | [...] [address] | [place] | [phone] | | [facility] | | [address] | | | - LABORATORY | | [...] [address] | [place] | [phone] | | [facility] | | [address] | | | - LABORATORY | | | | + + + + + DAVIAN (12/24/2017 1:19 PM PST) + + | Specimen | + + | | + + + + -+ | Narrative | Performed At | + + -+ | | [facility] | | GastroenterologyPatient Name: Moe SanchezProcedpasha Date: 12/24/2017 | [facility] | | 1:19 PMMRN: [id number] #: [id number] of : | | | 9Admit Type: AmbulatoryAge: 57Room: [facility] 01Gender: MaleNote | | | Status: FinalizedAttending MD: Emmanuel Daniel , MDProcedure: | | | Upper GI endoscopyIndications: Diarrhea, Weight | | | lossProviders: Emmanuel Daniel MD, Maria Isabel Morris RN, | | | Kim Hicks, Cardiac Cath Lab Technologist, Jarett | | | Sapna Barakat MD [...] the anesthesiologist and | | | the pest control technician in the endoscopy suite. Mental Status [...] for pathology results in 1 week.Emmanuel Daniel MD/12/2017 | | | 2:01:38 PMThis report has been signed electronically.Number of | | | Addenda: 0Note Initiated On: 12/24/2017 1:19 PMTotal Procedure Duration: | | | 0 hours 5 minutes 9 seconds Scope In: 1:26:04 PMScope Out: 1:31:13 PM | | | [facility], [address] [facility] | | | [place] [address] | | | - Discharge patient to [...] [facility], [facility] [address] [place], [place] | | | [address] | | + + -+ + +---------+ [...] | [facility] | | GastroenterologyPatient Name: Moe Fourniercedure Date: 12/24/2017 | [facility] | | 1:17 PMMRN: [id number] #: [id number] of : | | | 9Admit Type: AmbulatoryAge: 57Room: [facility] 01Gender: MaleNote | | | Status: FinalizedAttending MD: Emmanuel Daniel , MDProcedure: | | | ColonoscopyIndications: Clinically significant diarrhea of | | | unexplained originProviders: Emmanuel Daniel MD, Maria Isabel | | | Arturo, RN, Kim Hicks, Cardiac Cath Lab Technologist, | | | Jarett Barakat MD (Anesthesia [...] | | | the anesthesiologist and the pest control technician in the endoscopy suite. | | [...] Scope In: 1:32:55 PMScope Out: 1:48:57 PM [facility] | | | [facility], [facility] [place] [place] [address] | | | [phone] | | | - Await pathology results. [...] |Scope Out: 1:48:57 PM | | | [facility], [address] [facility], [place], [place] | | | [address] | | + + -+ + +---------+ [...] | colonic mucosa with focal adenomatous change. [facility]:C2NR | | | GROSS DESCRIPTION: Received in four parts. A. Received in | | | formalin labeled "Moe [place], A." and labeled "duodenal bx" on | | | the requisition are six pink-lin tissue fragments measuring from | | | 0.3-0.8 cm submitted, all in (A1). B. Received in formalin labeled | | | "Moe Sanchez, C." and labeled "B, left colon [...] | | cm, submitted, all in (D1). ka:CLR:[facility] ADDITIONAL NOTES: | | | Immunohistochemical studies were performed on this case with the | | | appropriate positive controls that react as expected. This test was | | | developed and its performance characteristics determined by [facility] | | | [facility]. It has not been cleared or approved by the U.S. Food | | | and Drug Administration. The FDA has determined that such clearance | | | or approval is not necessary. This test is used for clinical | | | purposes. It should not be regarded as investigational or for | | | research. [facility] is certified under the Clinical | | | Laboratory Improvement Amendments of 1988 (CLIA) as qualified to | | | perform high complexity clinical laboratory testing. This assay | | | has not been validated for specimens that have been decalcified. | | | PERFORMING LABORATORY: Tissue processing and slide preparation were | | | performed by [facility], [address], [facility] | | | [place] [address] (Mobile Architect: Evan Frausto M.D. CLIA#: | | | [id number]). Professional interpretation was performed by [facility] | | | [facility], [address], [place] [address] | | | (Mobile Architect: Evan Frausto M.D.; IA#: [id number]). | | | Diagnostician: Rafael Bales MD [...]
--- OUTSIDE RECORDS SUMMARY | ~2020-06-15 | XMS | Encounter Summary ---
Demographics + + + | Address | [address] | | | [place] [address] | + + + | Home Phone [...] Team Providers + +------+ + | Care Help Desk Coordinator Name | Role | Phone | [...] Radiology | Diagnoses | Hellberg, | [facility] | | | | | Other chest | PARISA Nevarez | Medicine | | | | | pain | [address] | [address] | | | | | Procedures | [place] | [place], | | | | | [place] [facility] | [place], [place] | [place] | | | | | Stress Test | [address] | [address] | | | | | (Vasodilator | Phone: | Phone: | | | | | ) CHG | [phone] | [phone] | | | | | MYOCARDIAL | Fax: | Fax: | | | | | SPECT | [phone] | [phone] | | | | | MULTIPLE | | | | | | | STUDIES | | | +--------+--------+ + + + + Reason for Visit +--------+--------+ + | Reason | Onset | Comments | | | Date | | +--------+--------+ + | Other | 10/16/ | medication interactions, chest pain | | | 2012 | | +--------+--------+ + Encounter Details +--------+ + + + + | Date | Type | Department | Care Team | Description | +--------+ + + + + | 10/16/ | Telephone | [facility] [place] | [place]berg, Geri, | Other (medication | | 2012 | | CARDIOLOGY [address] | CAN STRIPER [address] | interactions, chest | | | | [address] [place], | [address] [place], [place] | pain) | | | | [place] [address] | [address] | | | | | [phone] | | | +--------+ + + + [...] Telephone Encounter - Kailey Pruitt RN - 10/17/2013 5:11 PM PSTMessage relayed to patient . He is agreeable to the stress test. I advised I will have the front office call to marnie rodarte the stress test. Electronically signed by: Kailey Pruitt RN 10/17/2013 17:15 elephone Encounter - Geri Bautista, CAN STRIPER - 10/17/2013 12:54 PM PSTAmy, I think the patient meant an interaction b etween metoprolol and diltiazem, and that interaction exists only because of the risk of a l ow heart rate as both of the medications can slow the heart rate down and prevent palpitatio ns, and in his case it is not a concern as he has a pacemaker, but normally it is a potentia l interaction, just not in his case. They also lower the blood pressure, so in fact the com bination of the two should work better for him than either one alone. So basically, the med ications are not contributing to his symptoms. He was evaluated in [place] [facility] with Dr. Qureshi in electrophysiology, and is supposed to be wearing an event monitor for their office. He should follow through with that plan. It has been 4 years since his last stress test, so since he is having chest pain symptoms, it would be good to have him do a p ersantine nuclear medicine stress test prior to his follow up appointment in our office. He is scheduled with Janeen in November, please find out if he wants that appointment moved up or kept the same, and have him scheduled for the stress test. Thanks! ...................... .....................Geri Vigil PARISA Angel on 10/17/2013 at 13:04 elephone Encounter - Kailey Pruitt RN - 10/16/2013 4:36 PM PSTPatient called, said he received a letter from a nurse at his insurance company advising him of interactions between metoprolol and diazep am and he believes he is having them more frequently and more severe. I asked him what they were and he complained of rapid heart beats, pounding chest, high blood pressure, Steady sha rp chest pain on the left side, shortness of breath, I asked if he has been sweating with th is and he states he is soaked but does not have a fever. He did have a cough. I advised that Geri PARISA Angel is out of the office, and that I will advise her of his call when she r eturns, but that I was concerned about his symptoms and would advise him to go to the ER to rule out a heart attack. He advised that he can not drive to [place] in his condition an d he "won't go to the ER in [place]". I strongly advised that our recommendation would be for him to go immediately to the ER to be worked up. Electronically signed by: Kailey buitrago RN 10/16/2013 16:41 documented in this enco unter Plan of Treatment +--------+ + + + + | Date | Type | Specialty | Care Team | Description | +--------+ + + + + | 10/30/ | Procedure | Cardiology | | | | 2019 | visit | | | | +--------+ + + + + | 10/30/ | Office | Cardiology | Aguilar, | | | 2019 | Visit | | PARISA Vernon [address] | | | | | [address], | | | | | | [place] [address] | | | | | | [phone] | | | | | | | | +--------+ + + + + documented as of this encounter Results [place] Nuclear Stress Test (Vasodilator) (12/07/2013 7:01 AM PST) + + | Specimen | + + | | + + + + + | Narrative | Performed At | + + + | [facility] | [place] | | Department [address] [place] | [facility] | | [ rep [address]] [ rep ct city | [facility] | | st zip] Signed | - IMAGING | | | | | Patient Name: MOE GAY | | | Physician: JACKLYN : 1960 Age: 53 Sex: M Unit | | | #: [id number] Exam Date: 12/06/13 Location: | | | [facility] Report #: [id number] Page: | | | %(RAD)RES..mtdd.print.filter("pg") of %(RAD) | | | RES..mtdd.print.filter("tpg") | | | | | | Accession Number: [id number] | | | PERSANTINE SESTAMIBI STRESS TEST, [...] Transcribed Date/Time: 12/07/2013 08:18 | | | Director Of Student Services: <<Signature on File>> | | | | | | Daljit Singletary MD [facility] FASE12/07/13 1321 <Electronically signed | | | by Daljit Singletary MD, [facility], FACP, FASE, FASNC> Daljit | | | MD [employer] [facility] FASE 12/07/13 0701 Director Of Student Services: [employer] | | | [id number]/16/14 0818 PARISA Garcia | | + + + + + + + + | Performing | Address | City/State/Zipcode | Phone Number | | Organization | | | | + + + + + | [facility] | [address] | [place] | [phone] | | [facility] | | [address] | | | - IMAGING | | | | + + + + + documented in this encounter Visit Diagnoses + + | Diagnosis | + + | Other chest pain - Primary | + + documented in this encounter
--- OUTSIDE RECORDS SUMMARY | ~2020-06-15 | XMS | Encounter Summary ---
Demographics + + + | Address | [address] | | | [place] [address] | + + + | Home Phone [...] Providers + +------+ + | Care Sap Integration Architect Name | Role | Phone | + +------+ + PCP | Unavailable | + +------+ + Encounter Details +--------+ + + + + | Date | Type | Department | Care Team | Description | +--------+ + + + + | 06/12/ | [facility] | [facility] | Hunter Antunez, | | | 2007 - | Encounter | MED CTR ICU [address] | MD [address] | | | | | [place], | [place] | | | 06/15/ | | [place] [address] | [id number] | | | 2007 | | [phone] | | | +--------+ + + + [...] | | | | | | [place] [address] | | | | | | [phone] | | | | | | | | +--------+ + + + + documented as of this encounter Visit Diagnoses Not on filedocumented in this encounter"
--- OUTSIDE RECORDS SUMMARY | ~2020-06-15 | XMS | Encounter Summary ---
Demographics + + + | Address | [address] | | | [place] [address] | + + + | Home Phone [...] Team Providers + +------+ + | Care Conference Director Name | Role | Phone | + +------+ + | Kirk French MD | PCP | | + +------+ + Encounter Details +--------+ + + + + | Date | Type | Department | Care Team | Description | +--------+ + + + + | 11/16/ | [facility] | [facility] | Kirk French | Aneurysm (HCC) | | 2017 | Encounter | MED CTR ULTRASOUND | D, MD [address] | | | | | [address] [place] | [address] | | | | | [place], [place] | [place] [address] | | | | | [address] | [phone] | | | | | [phone] | | | | | | | [...] + + +---------+ + + | [place]-3 Fatty | CAPS, one capsule by | [...] | | | | | | [place] [address] | | | | | | [phone] | | | | | | | | +--------+ + + + + + +---------+--------+ + + | Name | Type | Priori | Associated Diagnoses | Order Schedule | | | | ty | | | + +---------+--------+ + + | US AAA Screening | Imaging | Routin | Aneurysm (HCC) | 1 Occurrences | | | | e | | starting 11/16/2017 | | | | | | until 11/16/2017 | + +---------+--------+ + + documented as of this encounter Visit Diagnoses + + | Diagnosis | + + | Aneurysm (HCC) Aneurysm of unspecified site | + + documented in this encounter"
--- OUTSIDE RECORDS SUMMARY | ~2020-06-15 | XMS | Encounter Summary ---
Demographics + + + | Address | [address] | | | [place] [address] | + + + | Home Phone [...] Providers + +------+ + | Care Hot Iron Worker Name | Role | Phone | + +------+ + | Kirk French MD | PCP | | + +------+ + Reason for Visit + + + | Reason | Comments | + + + | Follow-up | | + + + Follow Up [...] | MD [address] | [address] | | | | | hypertension | [address] | [place], | | | | | Sick sinus | [address] | [place] | | | | | syndrome | [facility], [place] | [address] | | | | | (HCC) | [address] | Phone: | | | | | Ventricular | Phone: | [phone] | | | | | premature | [phone] | Fax: | | | | | depolarizati | Fax: | [phone] | | | | | on | [phone] | | | | | | Tachycardia, | | | | | | | unspecified | | | | | | | | | | | | | | Atherosclero | | | | | | | tic heart | | | | | | | disease of | | | | | | | match-e-be-nash-she-wish band | | | | | | | [...] Description | +--------+---------+ + + + | 05/01/ | Office | [facility] | Silvia, | Sinoatrial node | | 2020 | Visit | CARDIOLOGY [address] | [place] [address] | dysfunction (HCC) | | | | [place], | [place], | with symptomatic | | | | [place] [address] | [place] [address] | bradycardia (Primary | | | | [phone] | [phone] | Dx); Symptomatic | | | | | | PVCs; Tachycardia; | | | | | | Coronary artery | | | | | | disease involving | | | | | | match-e-be-nash-she-wish band coronary | | | | | | artery of match-e-be-nash-she-wish band | | | | | | heart without angina | | | | | | pectoris; Essential | | | | | | hypertension; | | | | | | Syncope, unspecified | | | | | | syncope type; | | | | | | Ascending thoracic | | | | | | aortic aneurysm | | | | | | (HCC); | | | | | | Hyperlipidemia, | | | | | | mixed; Pacemaker; | | | | | | Pacemaker | | | | | | reprogramming/check | +--------+---------+ + + + Social History [...] + + + | Blood Pressure | 130/88 | 05/01/2020 12:47 PM | | | | | PDT | | + + + + + | Pulse | 72 | 05/01/2020 12:47 PM | | | | | PDT | | + + + + + | Temperature | - | - | | + + + + + | Respiratory Rate | 16 | 05/01/2020 12:47 PM | | | | | PDT | | + + + + + | Oxygen Saturation | - | - | | + + + + + | Inhaled Oxygen | - | - | | | Concentration | | | | + + + + + | Weight | 119.5 kg (263 lb 7.2 | 05/01/2020 12:47 PM | | | | oz) | PDT | | + + + + + | Height | 193 cm (6' 4") | 05/01/2020 12:47 PM | | | | | PDT | | + + + + + | Body Mass Index | 32.07 | 05/01/2020 12:47 PM | | | | | PDT [...] encounter Patient Instructions Patient Instructions Vidhi Gillespie, Plant Cytologist - 05/01/2020 3:00 PM PDT1. Incre ase atorvastatin to 80 mg; take 1 tablet nightly. 2. He will follow up in 6 months for office visit and device interrogation, or sooner with concerns. He will have an ECG at his follow up visit documented in this encounter Progress Notes Janeen Vega ARNP - 05/01/2020 3:00 PM PDT PATIENT NAME: Moe Sanchez : 1960: [...] and has received error codes. Referred to [facility]cted line. Monthly remote monitoring. Device interrogation due in office at [facility]. Janeen Allison ARNP - 05/01/2020 3:00 PM PDTFormatting of th is note might be different from the original. PATIENT NAME: Moe Sanchez : 1960: AGE: 60 y.o. PRIMARY CARE: Kirk French MD OUTPATIENT FOLLOW UP VISIT Date of Service: 05/01/2020 HISTORY OF PRESENT ILLNESS: Moe Sanchez is a 60 y.o. male with a history of critical coronary artery disea se involving match-e-be-nash-she-wish band coronary artery of match-e-be-nash-she-wish band heart without angina pectoris, essential hyper tension, symptomatic bradycardia status post Medtronic dual-chamber permanent pacemaker impl antation 06/14/09, frequent premature ventricular contractions status post ablation spring, and bipolar disorder with anxiety. He is being seen today for her 3 month follow up. He was last seen 01/01/2020 at which time he was to continue with current effective medical regiment. He was recommended a therapeutic lifestyle change including moderate aerobic activ ity at least 150 minutes per week, with strengthening and stretching exercises at least twic e per week, and healthful dietary choices following the principles of the mediterranean or p lant-based diet. He will follow up in 3 months for office visit and device interrogation, o r sooner with concerns. Patient is needing MRI of his back and shoulder. He has a non-MRI c ompatible device. He has been advised to having his MRI done in [place] at [facility] has a repeat MRI protocol for such situations. Patient also will need echocardiogram for his next appointment to evaluate his ascending aorta Since that time,on 01/11/2020 he was seen by PCP for follow up. On 01/31/2020 patient called and states that he sees a pain specialist in [place] and they would like him to start on L yrica/pregabalin 75mg. He would like to know if this is ok for him to do along with his car diac medications. Per Janeen he was notify it was ok to start medication. He states that he started experiencing bilateral lower extremity edema when he started lyrica, and his legs co ntinue to swell despite compression stockings. Per Janeen he was to take Furosemide 20 mg t wice a day (6 hours apart) for 3 days only and see if it helps with the leg swelling. Also h ave him an extra bananas for those 3 days. He has had a fair energy level. He has not been very active. He is having chest pain episo lavinia the last one was 3 weeks ago, and he did had to take Nitro couple of times. He has not noticed shortness of breath. He states he has been getting lightheadedness and dizziness. He has noted palpitations episodes He has not had leg swelling. He is able to sleep layin g down at night without any symptoms of shortness of breath. States not using a CPAP no ja tony. Symptoms are "pretty much the same as they have been". MEDICAL, SURGICAL, AND PERSONAL HISTORY Past Medical, Surgical, Family, and Social History are reviewed in EPIC. CURRENT PROBLEMS Patient Active Problem List Diagnosis Hyperlipidemia, mixed Bipolar disorder Smoker Hypertension Fibromyalgia Low back pain Chronic pain syndrome Thrombocytopenia FATIGUE ABDOMINAL PAIN, UNSPECIFIED SITE NECK PAIN, CHRONIC Syncope Obstructive sleep apnea on CPAP Ulcerative colitis Sinoatrial node dysfunction with symptomatic bradycardia Pacemaker HEPATITIS B PUD FATTY LIVER DISEASE Multiple substance abuse DEPRESSION Hypoglycemia Symptomatic PVCs Tachycardia Preventative health care Coronary artery disease involving match-e-be-nash-she-wish band coronary artery of match-e-be-nash-she-wish band heart without angina pectoris Marijuana use Ascending [...] type dependence, continuous Allergy to opioid analgesic CURRENT MEDICATIONS Current Outpatient Medications Medication Sig Dispense Refill acyclovir (ZOVIRAX) 5% ointment Apply topically. amLODIPine (NORVASC) 5 mg tablet Take 1 tablet by mouth Daily. 90 tablet 3 Ascorbic Acid (VITAMIN C) 1000 MG tablet Take 1,000 mg by mouth Daily. aspirin 81 MG EC tablet Take 81 mg by mouth Daily. aspirin 81 MG tablet Take 81 mg by mouth Daily. (Patient not taking: Reported on 020) atorvaSTATin (LIPITOR) 40 mg tablet Take 1 tablet by mouth nightly. 90 tablet 3 Cinnamon Bark POWD Take by mouth. clonazePAM (KLONOPIN) 1 mg tablet TAKE ONE TABLET BY MOUTH THREE TIMES A DAY NEEDED FOR ANXIETY 90 tablet 0 CYANOCOBALAMIN PO Take by [...] day as needed ( One touch ) hyoscyamine (LEVSIN) 0.[address] 1 TABLET UNDER THE TONGUE EVERY 4 HOURS A S NEEDED FOR CRAMPING, DIARRHEA, GI SPASMS 60 tablet 1 Methylsulfonylmethane 1000 MG TABS Take 1,000 mg by mouth. metoprolol succinate (TOPROL-XL) 100 mg ER tablet Take 1.5 tablets by mouth Daily. 135 tablet 3 Misc Natural Products (OSTEO BI-FLEX/5-LOXIN ADVANCED PO) Take by mouth. Takes 2 table ts in the morning and 2 tablets at night Multiple Vitamins-Minerals (CENTRUM SILVER PO) Take 1 tablet by mouth Daily. nitroglycerin (NITROSTAT) 0.[address] ONE TABLET UNDER THE TONGUE EVERY 5 AK NUTES NEEDED FOR CHEST PAIN 250 tablet 0 nortriptyline (PAMELOR) 25 mg capsule Take 25 mg by mouth. [place]-3 Fatty Acids (SALMON OIL-1000 PO) CAPS, one capsule by mouth daily twice daily ondansetron (ZOFRAN ODT) 4 mg disintegrating tablet Take 4 mg by mouth every 8 hours as needed for Nausea. ondansetron (ZOFRAN) 4 mg tablet Take 4 mg by mouth. ONE TOUCH DELICA LANCETS [facility] Check glucose as needed for hypoglycemia 100 each 3 pramoxine-hydrocortisone cream Use up to tid prn 57 g 3 promethazine (PHENERGAN) 12.5 MG tablet 1po tid prn 90 tablet 3 PYRIDOXINE HCL PO Take by mouth. rOPINIrole [...] "Homicidal" when he took a high dose Hydrocodone-Acetaminophen Other (See Comments) ITCHING Isosorbide Nitrate Other (See Comments) headache Nortriptyline Other (See Comments) Irritability and anger Clarithromycin Palpitations Rapid heartbeat Duloxetine Other (See Comments) Blood pressure and heart increase/palpitations Fentanyl Itching and Rash Hydrocodone Itching and Anxiety Agitation and grumpiness Hydrocodone-Acetaminophen Other (See Comments) agitation and "makes me very irritable" Morphine Itching Penicillins Rash Tramadol Hcl Itching ROS Review of Systems Constitutional: Positive for malaise/fatigue. Negative for chills and fever. HENT: Negative for hearing loss, nosebleeds and tinnitus. Eyes: Negative for blurred vision and double vision. Respiratory: Negative for shortness of breath. Cardiovascular: Positive for chest pain, palpitations and leg swelling. Gastrointestinal: Negative for abdominal pain, blood in stool, constipation, diarrhea, hear tburn, nausea and vomiting. Genitourinary: Negative for frequency, hematuria and urgency. Musculoskeletal: Positive for falls (he had a recent fall and broke his left leg.) and neck pain. Negative for back pain, joint pain and myalgias. Skin: Negative for itching and rash. Neurological: Positive for dizziness. Negative for tingling, tremors, seizures, loss of con sciousness and weakness. Lightheadedness = yes Endo/Heme/Allergies: Does not bruise/bleed easily. Psychiatric/Behavioral: Negative for memory loss. The patient is not nervous/anxious and do es not have insomnia. OBJECTIVE: PHYSICAL EXAM BP 130/88 | Pulse 72 | Resp 16 | Ht 1.93 m (6' 4") | Wt 119.5 kg (263 lb 7.2 oz) | BMI 32.07 kg/m Physical Exam Constitutional: He is oriented to person, place, and time. He appears well-developed and we ll-nourished. Adult male in no acute distress Neck: Normal carotid pulses and no JVD (No JVD) present. Carotid bruit is not present (Kanchan r). Cardiovascular: Normal rate, regular rhythm, S1 normal, S2 normal and normal pulses. No ex trasystoles (PVC'S) are present. PMI is not displaced. Exam reveals no gallop and no frictio n rub. Murmur heard. Harsh midsystolic murmur is [...] motion. General: No edema (No leg swelling). Comments: Wearing boot and cast on the left leg Neurological: He is alert and oriented to [...] was found Confirmed by SYDNI SINGLETARY MD ([id number]) on 06/06/2019 3:43:10 PM LAB RESULTS reviewed during visit today primarily from [facility]: LIPID Lab Results Component Value Date CHOL 152 10/18/2017 TRIG 63 10/18/2017 HDL 63 10/18/2017 LDL 76 10/18/2017 CHOLHDL 3.4 06/22/2016 LDLEX 76 10/18/2017 HDLEX 63 10/18/2017 TRIGEX 63 10/18/2017 CHOLEX 152 10/18/2017 CHEMISTRY Lab Results Component Value Date GLU 94 06/02/2019 GLUEX 105 (A) 01/05/2020 NA 139 06/02/2019 NAEX 139 01/05/2020 K 3.7 06/02/2019 KEX 3.9 01/05/2020 CL 106 06/02/2019 CLEX 105 01/05/2020 CO2 25 06/02/2019 CO2EX 25 01/05/2020 CALCIUM 9.6 06/02/2019 ALKPHOS 76 06/02/2019 AST 35 (H) 06/02/2019 ASTEX 24 01/05/2020 ALT 27 06/02/2019 ALTEX 22 01/05/2020 BILITOT 0.7 06/02/2019 CREA 0.92 06/02/2019 BUN 15 06/02/2019 EGFR >60 11/25/2018 EGFREX 90 01/05/2020 CREEX 0.87 01/05/2020 HEMATOLOGY Lab Results Component Value Date WBC 6.3 06/02/2019 WBCEX 7.9 01/05/2020 HGB 16.3 06/02/2019 HGBEX 15.3 01/05/2020 HCT 46.4 06/02/2019 HCTEX 44.3 01/05/2020 PLT 169 06/02/2019 PLTEX 158 01/05/2020 Lab Results Component Value Date TSH 1.07 12/31/2016 TSHEX 1.15 05/12/2016 BNP 48 06/02/2019 I reviewed records from [facility] for office visit on 01/01/2020 ich is summarized in the HPI. RESULTS- I reviewed reports from [facility]: No results found. Above data and testing is reviewed this visit; testing below is historical data unless othe rwise specified. ASSESSMENT: 1. Non-critical Coronary artery disease involving match-e-be-nash-she-wish band coronary artery of match-e-be-nash-she-wish band heart [facility] angina pectoris: A.Normal exercise sestamibi stress [...] cannot completely be ru led out. D. [facility] 12/25/13, shows non critical coronary artery [...] 64%. I. Left heart catheterization done on 01/25/19shows noncritical cor onary artery disease; borderline 50% eccentric lesions to the mid LAD, luminal irregularity for the rest of the vascular territories, there is a right dominatecirculation, normal LV systolic function with an EF of 75%, systemic blood pressure is normal, there was successful hemostasis with a TR hemostatic band, MD Shawn Miles.Today, 05/01/2020, he is symptomatic with angina that has not been worse, 3 episodes in 4 months. He is on a medical regimen with aspirin, beta-edvin and st atin. There are no signs or symptoms of overt congestive heart failure, and his physical exa m shows no significant fluid retention. He is in class I- No symptoms; no limitations of ac tivities of the [place] [employer] functional class. Heart failure stage [...] performed by Dr Juan Diego Gambino at [facility] on 01/30/2013.Patient had spontaneous PVC'sfr [...] to go back in 3 days to [place] for an attempt of ablation under general [...] and PVC'swere noted, by Sydni Singletary MD. F.Today, 05/01/2020, he had echocardiogram done this morning will call p atient with results tomorrow. 3. Essential hypertension with goal blood pressure less than 130/80: A. Today, 05/01/2020, his blood pressure is well controlled. 4. [...] was not checked in office today. E.Today, 05/01/2020, he feels palpitations are well controlled on current regimen. 6. Lightheadedness and dizziness/ presyncope: A. Episode of presyncope 05/28/10 evaluated in the emergency departme , thought to have vasovagal symptoms. B.Today, 05/01/2020, he states he has been getting episodes of lig htheadedness and dizziness. 7. History of cigarette smoking: A. Today, 01/01/2020, he states had completely quit. 8. Bipolar disease with anxiety/depression: A. He is using clonazepam as needed. B. 01/11/2019, he will see his PCP and see about his medication. C. Today, 05/01/2020, he states he is not currently taking anxiety medications. PLAN: 1. Increase atorvastatin to 80 mg; take 1 tablet nightly. 2. Monthly transtelephonic downloads for pacemaker. 3. Will call patient with echocardiogram results tomorrow after 10 AM. 4. He will follow up in 6 months for office visit and device interrogation, or sooner with concerns. He will have an ECG at his follow up visit Vidhi Clemente, Plant Cytologist am acting as a scribe on behalf of, and in the prese nce of PARISA Lomas. - Vidhi Gillespie, Plant Cytologist 05/01/2020 12:50 PM IJaneen ARNP, personally performed the services described in this documentati on, as scribed in my presence and it is both accurate and complete. -PARISA Lomas 05/01/2020 Portions of this chart may have been created with [employer] voice recognition software. Occasi onal wrong-word [...] | | | | | | [place] [address] | | | | | | [phone] | | | | | | | | +--------+ + + + + documented as of this encounter Visit Diagnoses + + | Diagnosis | + + | Sinoatrial node dysfunction (HCC) with symptomatic bradycardia - Primary Sinoatrial | | node dysfunction | + + | Symptomatic PVCs Other premature beats | + + | Tachycardia Tachycardia, unspecified | + + | Coronary artery disease involving match-e-be-nash-she-wish band coronary artery of match-e-be-nash-she-wish band heart without | | angina pectoris | + + | Essential hypertension Unspecified essential hypertension | + + | Syncope, unspecified syncope type | + + | Ascending thoracic aortic aneurysm (HCC) Thoracic aneurysm without mention of rupture | + + | Hyperlipidemia, mixed Mixed hyperlipidemia | + + | Pacemaker Cardiac pacemaker in situ | + + | Pacemaker reprogramming/check Fitting and adjustment of cardiac pacemaker | + + documented in this encounter
--- OUTSIDE RECORDS SUMMARY | ~2020-06-15 | XMS | Encounter Summary ---
Demographics + + + | Address | [address] | | | [place] [address] | + + + | Home Phone [...] Team Providers + +------+ + | Care Boatswains Mate Name | Role | Phone | + [...] + | 09/30/ | Telephone | [facility] | Anshumarianatesha Daljit, | Other ([place] | | 2018 | | CARDIOLOGY [address] | remote) | | | | [place], | [place], | | | | | [place] [address] | [place] [address] | | | | | [phone] | [phone] | | | | | | | [...] voice message that we have not received seedtag remote pacemaker report this week. Requested to [...] | | | | | | [place] [address] | | | | | | [phone] | | | | | | | | +--------+ + + + + documented as of this encounter Visit Diagnoses Not on filedocumented in this encounter"
--- OUTSIDE RECORDS SUMMARY | ~2020-06-15 | XMS | Encounter Summary ---
Demographics + + + | Address | [address] | | | [place] [address] | + + + | Home Phone [...] Providers + +------+ + | Care Assistant Prosecuting Attorney Name | Role | Phone | + +------+ + | Kirk French MD | PCP | | + +------+ + Encounter Details +--------+ + + + + | Date | Type | Department | Care Team | Description | +--------+ + + + + | 11/16/ | [facility] | [facility] | Kirk French | Aneurysm (HCC) | | 2017 | Encounter | [facility] | D, MD [address] | | | | | [address] [place] | [address] | | | | | [place], [place] | [place] [address] | | | | | [address] | [phone] | | | | | [phone] | | | | | | | [...] + + + +---------+ + + | [place]-3 Fatty | CAPS, one capsule by | [...] | | | | | | [place] [address] | | | | | | [phone] | | | | | | | [...]
--- OUTSIDE RECORDS SUMMARY | ~2020-06-15 | XMS | Encounter Summary ---
Demographics + + + | Address | [address] | | | [place] [address] | + + + | Home Phone [...] Providers + +------+ + | Care Operations Research Scientist Name | Role | Phone | [...] W | reprogramming/check | | | | [place], | [address] [place] | [place]LETE | | | | [place] [address] | [place] [address] | (Primary Dx); | | | | [phone] | [phone] | Pacemaker - | | | | [...] encounter Procedure Notes Margarito Jaeger MD - 08/24/2018 10:00 AM PDTAssociated Order(s): DEVICE INTERROGATIO NProcedure(s): DEVICE INTERROGATIONPre-Procedure Diagnose(s): Pacemaker reprogramming/check; Presence of permanent cardiac pacemaker; Sinoatrial node dysfunction (HCC) PATIENT NAME: Moe [...] Device interrogation due in office in 12 months. documented in this encounter Plan of [...] | | | | | | [place] [address] | | | | | | [phone] | | | | | | | [...] + + + | Margarito Avina | [employer] | | MD Heide 08/24/2018 15:10 PATIENT [...]
--- OUTSIDE RECORDS SUMMARY | ~2020-06-15 | XMS | Encounter Summary ---
Demographics + + + | Address | [address] | | | [place] [address] | + + + | Home Phone [...] Providers + +------+ + | Care Cover Maker Name | Role | Phone | + +------+ + | Kirk French MD | PCP | | + +------+ + Reason for Visit +--------+--------+ + | Reason | Onset | Comments | | | Date | | +--------+--------+ + | Other | 01/01/ | Pacemaker | | | 2020 | | +--------+--------+ + Encounter Details +--------+ + + + + | Date | Type | Department | Care Team | Description | +--------+ + + + + | 01/01/ | Telephone | [facility] | Kirk French | Other ([facility]) | | 2020 | | [facility] | MD Bre[place] [address] | | | | | [facility] [address] | | | | | [address] | [place] [address] | | | | | [place], [place] | [phone] | | | | | [address] | | | | | | [phone] | | | +--------+ + + + [...] Miscellaneous Notes Telephone Encounter - Geri Bear, Engine Builder - 01/01/2020 11:09 AM PSTCalled and spoke with Kasie, states he will need to go to [facility] [place] this as their ma chine will allow patients to have pacemaker. Let her know we have no order for an MRI for hi m to be done, she states that she will contact patient in regards to this. Electronically si gned by Geri Bear, Engine Builder at 01/01/2020 11:09 AM PSTTelephone Encounter - Danielle london Rosy - 01/01/2020 8:33 AM PSTJuirineo, is calling regarding Other (Pacemaker) and would like a call back. Additional Call Details: States patient's pacemaker is not MRI compatible and is requestin g a call back to discuss referring patient to a location that is. Please call her back at [phone] and ask for Kasie or Christel. If this is a symptom based call, was patient offered triage? Not Applicable If this is a symptom based call and you were unable to immediately transfer the call to a p mia remote control mirror installer was caller made aware that if at [...] | | | | | | [place] [address] | | | | | | [phone] | | | | | | | | +--------+ + + + + documented as of this encounter Visit Diagnoses Not on filedocumented in this encounter"
--- OUTSIDE RECORDS SUMMARY | ~2020-06-15 | XMS | Clinical Summary ---
Demographics + + + | Address | [address] | | | [place] [address] | + + + | Home Phone [...] Team Providers + +------+ + | Care Pantry Chef Name | Role | Phone | + [...] | Hydrocodone-Acetamin | Other (See Comments) | | 05/01/20 | ITCHING | | ophen | | | 20 | | + + + + + [...] | | + + + +---------+------+------+-------+ | [place]-3 Fatty | CAPS, one capsule by | [...] not taking. Reported | | | on 05/01/2020 1:12 | | | PM | +---+ + + + +---------+---+------+------+-------+ | ONE TOUCH DELICA | Check glucose as | 100 | 3 | 09/ | | Activ | | LANCETS | needed for | each | | 05/11 | | e | | MISCIndications: | hypoglycemia | | | 13 | | | | Hypoglycemia | | | | | | | + + +---------+---+------+------+-------+ | Misc Natural | Take by mouth. | | 0 | | | Activ | | Products (OSTEO | Takes 2 tablets in | | | | | e | | BI-FLEX/5-LOXIN | the morning and 2 | | | | | | | ADVANCED PO) | tablets at night | | | | | | + + +---------+---+------+------+-------+ | rOPINIrole | Take 1 tablet by | | 0 | 07/0 | | Activ | | (REQUIP) 1 mg tablet | mouth nightly. | | | 3/20 | | e | | | | | | 15 | | | + + +---------+---+------+------+-------+ | Multiple | Take 1 tablet by | | 0 | | | Activ | | Vitamins-Minerals | mouth Daily. | | | | | e | | (CENTRUM SILVER PO) | | | | | | | + + +---------+---+------+------+-------+ | UNABLE TO FIND | Take 1 tablet by | | 0 | | | Activ | | | mouth Daily. | | | | | e | | | MARINE-D3 | | | | | | + + +---------+---+------+------+-------+ | ondansetron | Take 4 mg by mouth | | 0 | 01/1 | | Activ | | (ZOFRAN ODT) 4 mg | every 8 hours as | | | 20 | | e | | disintegrating | needed for Nausea. | | | 19 | | | | tablet | | | | | | | + + +---------+---+------+------+-------+ | Glucose Blood | Test up to 1 times a | | 0 | 03/0 | | Activ | | (BLOOD GLUCOSE TEST | day as needed ( One | | | 08/11 | | e | | STRIPS) STRP | touch ) | | | 18 | | | + + +---------+---+------+------+-------+ | aspirin 81 MG EC | Take 81 mg by mouth | | 0 | | | Activ | | tablet | Daily. | | | | | e | + + +---------+---+------+------+-------+ | nitroglycerin | PLACE ONE TABLET | [...] | | | | | + + +---------+---+------+------+-------+ | amLODIPine | Take 1 tablet by | 90 | 3 | 11/0 | | Activ | | (NORVASC) 5 mg | mouth Daily. | tablet | | 5/20 | | e | | tablet | | | | 19 | | | + + +---------+---+------+------+-------+ | dicyclomine | Take 1 tablet by | 270 | 3 | 11/0 | 11/0 | Activ | | (BENTYL) 20 MG | mouth 3 times daily | tablet | | 5/20 | 4/20 | e | | tablet | as needed. Before | | | 19 | 20 | | | | meals | | | | | | + + +---------+---+------+------+-------+ | Cinnamon Bark POWD | Take by mouth. | | 0 | | | Activ | | | | | | | | e | + + +---------+---+------+------+-------+ | CYANOCOBALAMIN PO | Take by mouth. | | 0 | | | Activ | | | | | | | | e | + + +---------+---+------+------+-------+ | cyclobenzaprine | | | 0 | 09/0 | | Activ | | (FLEXERIL) 10 mg | | | | 6/20 | | e | | tablet | | | | 19 | | | + + +---------+---+------+------+-------+ | ELDERBERRY PO | Take by mouth. | | 0 | | | Activ | | | | | | | | e | + + +---------+---+------+------+-------+ | | Take 1,000 mg by | | 0 | 03/0 | | Activ | | Methylsulfonylmethan | mouth. | | | 9/20 | | e | | e 1000 MG TABS | | | | 18 | | | + + +---------+---+------+------+-------+ | PYRIDOXINE HCL PO | Take by mouth. | | 0 | | | Activ | | | | | | | | e | + + +---------+---+------+------+-------+ | metoprolol | Take 1.5 tablets by | 135 | 3 | 02/1 | | Activ | | succinate | mouth Daily. | tablet | | 0/20 | | e | | (TOPROL-XL) 100 mg | | | | 20 | | | | ER tablet | | | | | | | + + +---------+---+------+------+-------+ | promethazine | 1po tid prn | 90 | 3 | 02/2 | | Activ | | (PHENERGAN) 12.5 MG | | tablet | | 0/20 | | e | | tablet | | | | 20 | | | + + +---------+---+------+------+-------+ | | Use up to tid prn | 57 g | 3 | 02/2 | | Activ | | pramoxine-hydrocorti | | | | 0/20 | | e | | sone cream | | | | 20 | | | + + +---------+---+------+------+-------+ | valACYclovir | TAKE ONE TABLET BY | 180 | 0 | 03/0 | | Activ | | (VALTREX) 1 g tablet | MOUTH TWICE A DAY | tablet | | 3/20 | | e | | | | | | 20 | | | + + +---------+---+------+------+-------+ | HYDROmorphone | take 1 tablet by | | 0 | 06/0 | | Activ | | (DILAUDID) 4 MG | mouth every 4 hours | | | 9/20 | | e | | tablet | if needed for pain | | | 20 | | | + + +---------+---+------+------+-------+ | | | | 0 | 05/2 | | Activ | | oxyCODONE-acetaminop | | | | 7/20 | | e | | hen (PERCOCET) 5-325 | | | | 20 | | | | mg per tablet | | | | | | | + + +---------+---+------+------+-------+ | atorvaSTATin | Take 1 tablet by | 90 | 3 | 04/22 | | Activ | | (LIPITOR) 80 MG | mouth nightly. | tablet | | 0/20 | | e | | tabletIndications: | | | | 20 | | | | Coronary artery | | | | | | | | disease involving | | | | | | | | [place] coronary | | | | | | | | artery of [place] | | | | | | | | heart without angina | | | | | | | | pectoris, | | | | | | | | Hyperlipidemia, | | | | | | | | mixed | | | | | | | + + +---------+---+------+------+-------+ | pregabalin | Take 1 capsule by | 90 | 1 | 04/22 | | Activ | | (LYRICA) 75 mg | mouth 2 times daily. | capsule | | 1/20 | | e | | capsule | | | | 20 | | | + + +---------+---+------+------+-------+ | diclofenac | Take 1 tablet by | 60 | 1 | 04/22 | | Activ | | (VOLTAREN) 75 mg EC | mouth 2 times daily. | tablet | | 1 | | e | | tabletIndications: | | | | 20 | | | | Left ankle pain, | | | | | | | | unspecified | | | | | | | | chronicity | | | | | | | + + +---------+---+------+------+-------+ | | TAKE ONE TABLET BY | 120 | 5 | 07/0 | | Activ | | diphenoxylate-atropi | MOUTH FOUR TIMES A | tablet | | 8/20 | | e | | ne (LOMOTIL) | DAY NEEDED FOR | | | 20 | | | | 2.5-0.025 mg per | DIARRHEA | | | | | | | tablet | | | | | | | + + +---------+---+------+------+-------+ | clonazePAM | TAKE ONE TABLET BY | 90 | 0 | 07/0 | | Activ | | (KLONOPIN) 1 mg | MOUTH THREE TIMES A | tablet | | 8/20 | | e | | tablet | DAY NEEDED FOR | | | 20 | | | | | ANXIETY | | | | | | + + +---------+---+------+------+-------+ | hyoscyamine | PLACE ONE TABLET | 60 | 1 | 07/2 | | Activ | | (LEVSIN) 0.125 mg SL | UNDER THE TONGUE | tablet | | 0/20 | | e | | tablet | EVERY 4 HOURS | | | 20 | | | | | NEEDED FOR CRAMPING | | | | | | | | DIARRHEA, GI SPASMS | | | | | | + + +---------+---+------+------+-------+ | hyoscyamine | PLACE 1 TABLET UNDER | 60 | 1 | 12/0 | 07/2 | Disco | | (LEVSIN) 0.125 mg SL | THE TONGUE EVERY 4 | tablet | | 5/20 | 0/20 | ntinu | | tablet | HOURS NEEDED FOR | | | 19 | 20 | ed | | | CRAMPING, DIARRHEA, | | | | | | | | GI SPASMS | | | | | | + + +---------+---+------+------+-------+ | | TAKE ONE TABLET BY | 120 | 5 | 12/1 | 07/0 | Disco | | diphenoxylate-atropi | MOUTH FOUR TIMES A | tablet | | 3/20 | 8/20 | ntinu | | ne (LOMOTIL) | DAY NEEDED FOR | | | 19 | 20 | ed | | 2.5-0.025 mg per | DIARRHEA. | | | | | | | tablet | | | | | | | + + +---------+---+------+------+-------+ | clonazePAM | TAKE ONE TABLET BY | 90 | 0 | 05/0 | 07/0 | Disco | | (KLONOPIN) 1 mg | MOUTH THREE TIMES A | tablet | | 1/20 | 8/20 | ntinu | | tablet | DAY NEEDED FOR | | | 20 | 20 | ed | | | ANXIETY | | | | | | + + +---------+---+------+------+-------+ Active Problems + + + | Problem | Noted Date | + + + | Rectal bleeding | 01/15/2020 | + + + + + | Overview: Added automatically from request for surgery | | [id number] | + + + + + | Diarrhea, unspecified type | 01/15/2020 | + + + + + | Overview: Added automatically from request for surgery | | [id number] | + + + + + | Unintentional weight loss | 01/15/2020 | + + + + + | Overview: Added automatically from request for surgery | | [id number] | + + + + + | Opioid type dependence, continuous | 01/15/2020 | + + + + + | Overview: Added automatically from request for surgery | | [id number] | + + + + + | Allergy to opioid analgesic | 01/15/2020 | + + + + + | Overview: Added automatically from request for surgery | | [id number] | + + + + + | [...] + | Overview: Lower back injury (From [facility]) 1980 1984 | + + + + [...] + + | Coronary artery disease involving [place] coronary artery of | 12/21/2013 | | aniak heart without angina pectoris | | + [...] a TR | | hemostatic band, by Dal[facility]it [facility] on 07/21/2018 | | shows regadenoson EKG is negative, normal Regadenoson sestamibi | | myocardial perfusion study, normal left ventricular size, wall | | thickness and motion, preserved left ventricular systolic | | function, LVEF by gated SPECT is 64%, by Daljit Singletayr | | .Echocardiogram 06/16/16, shows normal left [...] attenuation cannot | | completely be ruled out.[facility] 12/25/13, shows non critical coronary [...] performed by Dr. Gambino at [facility] on 01/30/2013. Patient had spontaneous PVCs from [...] back in 3 days to | | [place] for an attempt of ablation under general [...] IMPLANTED GENERATOR | | Medtronic DDD ADDR01 [id number] 06/14/09 RV LEAD Medtronic Active | | Bipolar CapSureFix 4076 [id number] 06/14/09 A LEAD Medtronic | | Active Bipolar CapSurFix 4076 [id number] 06/14/09 | + + + +---+ | [...] Heart Cath, 02/29/2012, LVEF is 65%, [facility], Daljit Singletary, | | MDNuclear Medicine Myocardial Gated Stress Test, 05/25/2009, EF 53 | | % during rest and 52% during stress. [facility], | | [place], [place] Sestamibi Stress Test, 06/14/2008, LVEF is | | 60%, [facility] 12/25/13, shows noncritical | | [...] Plan: Nonobstructive CAD noted | | on [facility] from 2013, no EKG changes, [...] | +--------+ + + + + | 06/11/ | Telephone | Family Medicine | Kirk French | Referral | | 2019 | | | MD Brea | | +--------+ + + + + | 06/08/ | Refill | Gastroenterology | Kirk French | Medication Refill | | 2019 | | | MD Brea | | +--------+ + + + + | 06/05/ | Telephone | Family Medicine | Kirk French | Other | | 2019 | | | MD Brea | | +--------+ + + + + | 05/30/ | Telephone | Cardiology | Silvia | Other (medication | 2019 | | | [place] | and swelling) | +--------+ + + + + | 05/30/ | Telephone | Family Medicine | Kirk French | Medication Reaction | | 2019 | | | MD Brea | | +--------+ + + + + | 05/28/ | Refill | Family Medicine | Kirk French | Medication Refill | 2019 | | | MD Brea | | +--------+ + + + + | 05/27/ | Telephone | Cardiology | Daljit Singletary, | Britt ([facility] | 2019 | | | | monitor | | | | | | disconnected) | +--------+ + + + + | [...] | +--------+ + + + + | 05/07/ | Telephone | Cardiology | Shanique Vega Other | | 2019 | | | [place] | (pacemaker/MRI/shoul | | | | | | good) | +--------+ + + + + | 05/03/ | Telephone | Family Medicine | Kirk French | Medication Orders | | 2019 | | | MD Brea | | +--------+ + + + + | 05/02/ | Telephone | Cardiology | Silvia, | Results | | 2019 | | | [place] | | +--------+ + + + + | 05/01/ | Office | Cardiology | Silvia, | Sinoatrial node | | 2019 | Visit | | [place] | dysfunction (HCC) | | | | | | with symptomatic | | | | | | bradycardia (Primary | | | | | | Dx); Symptomatic | | | | | | PVCs; Tachycardia; | | | | | | Coronary artery | | | | | | disease involving | | | | | | [place] coronary | | | | | | artery of [place] | | | | | | heart [...] | | | | | reprogramming/check | +--------+ + + + + | 05/01/ | Procedure | Cardiology | Margarito Jaeger | Pacemaker | | 2020 | visit | | MD Fabrice | reprogramming/check | | | | | | DO NOT DELETE | | | | | | (Primary Dx); | | | | | | Pacemaker; | | | | | | Sinoatrial node | | | | | | dysfunction (HCC) | | | | | | with symptomatic | | | | | | bradycardia | +--------+ + + + + | 05/01/ | Hospital | Radiology | [place]via, | Ascending thoracic | | 2019 | Encounter | | [place] | aortic aneurysm | | | | | | ([facility]); Ascending | | | | | | aortic aneurysm | | | | | | ([facility]) | +--------+ + + + + | 05/01/ | Refill | Family Medicine | Kirk French | Medication Orders | | 2019 | | | MD Brea | | +--------+ + + + + | 04/25/ | Abstract | Cardiology | Silvia, | | | 2019 | | | [place] | | +--------+ + + + + | 03/27/ | Telephone | Cardiology | Daljit Singletary, | Other (Missed | | 2019 | | | | [place]) | +--------+ + + + + | [...] + + | Mother | | | [place] | | | | (Age | | [...] +--------+ + + + + | 10/30/ Office | Cardiology | Silvia, | | | 2019 | Visit | | [place] [address] | | | | | | [place], | | | | | | [place] [address] | | | | | | [phone] | | | | | | | [...] + + | Adult Annual | | 07/25/20 | | | Wellness Visit | 5 | 14, | | | | | 07/12/20 | | | | | 13 | | + + + + + | Vaccine: Zoster (2 | | 06/24/20 | | | of 3) | 5 | 15 | | + + + + + | Vaccine: Influenza | | 07/23/20 | | | (#1) | 0 | 16, | | | | | 06/24/20 | | | | | 15, | | | | | 09/10/20 | | | | | 09 | | + + + + + | Med Mgmt: BUN | | 01/05/20 | | | | 1 | 20, | | | | | 01/05/20 | | | | | 20, | | | | | 06/02/20 | | | | | 19, | | | | | Addition | | | | | al | | | | | history | | | | | exists | | + + + + + | Med Mgmt: Cr | | 01/05/20 | | | | 1 | 20, | | | | | 01/05/20 | | | | | 20, | | | | | 06/02/20 | | | | | 19, | | | | | Addition | | | | | al | | | | | history | | | | | exists | | + + + + + | Med Mgmt: eGFR | | 01/05/20 | | | | 1 | 20, | | | | | 01/05/20 | | | | | 20, | | | | | 06/02/20 | | | | | 19, | | | | | Addition | | | | | al | | | | | history | | | | | exists | | + + + + + | Medication | | 01/05/20 | | | Management | 1 | 20 | | + + + + + | Vaccine: | | 08/17/20 | | | Dtap/Tdap/Td (2 - | 1 | 11, | | | Td) | | 05/16/20 | | | | | 02 | | + + + + + | Colorectal Cancer | | 01/05/20 | | | Screening | 9 | 19, | | | (Colonoscopy) | | 01/05/20 | | | | | 19, | | | | | 12/24/19 | | | | | 18, | | | | | Addition | [...] Left: | [facility] | | 09/27/ | [id number] | | - [id number]: | | Ureter | [employer] | | 2020 | / | | Qty: 1 on 04/13/2019 by | | | - [place] | | | /[id number] | | Matthew Uriarte MD at | | | | | | 57 | | [facility] | | | | | | | | [facility] | | | | | | [...] 3 Months Results Device Interrogation - Remote (05/21/2020 11:59 PM PDT) + + + | Narrative | Performed At | + + + | Daljit | [facility] | | MD Gemini 03/07/2020 1:15 PMDate of Remote Interrogation: | | | 03/07/2020 Refer to [facility] documentation and remote PDF scanned into | | | [facility] for remote interrogation results. Data [...] + + | Performing | Address | City/State/[facility] | Phone Number | | Organization | | | | + +---------+ + + | [facility] | | | | + +---------+ + + Device Interrogation (05/02/2020 12:00 AM PDT) + + + | Narrative | Performed At | + + + | Margarito Avina | [facility] | | MD Heide 05/01/2020 [...] | monitoring.Device interrogation due in office at [facility]. | | |Data collected by Shabana Lama RN | | | | | |The technical aspect of downloading device data was supervised by | | |Jonathan Jaeger MD | | |Underlying rhythm: Sinus [...] received | | |error codes. Referred to [facility] Stay Connected line. Monthly | | |remote monitoring. | | |Device interrogation due in office at [facility]. | | | | | + + + + + | Procedure Note | + + | Margarito Jaeger MD - 05/01/2020 2:30 PM PDT PATIENT NAME: Moe Bradley | | Laura : 1960: AGE: 60 y.o.Pacemaker Evaluation ReportJune 10, | | 2020Reason for evaluation: routineIndication for pacemaker: Sinoatrial node dysfunction | | ([facility]) (I49.5, 427.81); Pacemaker (Z95.0, V45.01); Pacemaker reprogramming/check [...] and has received error codes. Referred to [facility] Stay | | Connected line. Monthly remote monitoring.Device interrogation due in office at [facility]. | |Underlying rhythm: Sinus rhythm 72-75 [...] and has received error codes. [facility]erred to [facility] Stay Connected [facility]. Monthly remote monitoring. | |Device interrogation due in office at [facility]. | + + + +---------+ + + | Performing | Address | City/State/Zipcode | Phone Number | | Organization | | | | + +---------+ + + | [facility] | | | | + +---------+ + + ECHO Complete (05/01/2020 9:14 AM PDT) + [...] | | | | | | n [place] | | | | | + +--------+ [...] +--------+ +---------+--------+ | MEDICARE | MEDICA | [id number] | 01/21/20 | [phone] | | Medica | | | RE | | 01-Pre | 5 | | re | | | PART A | | sent | | | | | | AND B | | | | | | + +--------+ +--------+ +---------+--------+ | MEDICARE | MEDICA | [id number] | 01/21/20 | [phone] | | Medica | | | RE | | 01-Pre | 5 | | re | | | PART A | | sent | | | | | | AND B | | | | | | + +--------+ +--------+ +---------+--------+ | AARP | AARP | [id number] | | [phone] | | Indemn | | | MDCR | | 016-Pr | 0 | | ity | | | SUPPL | | esent | | | | + +--------+ +--------+ +---------+--------+ | AARP | AARP | [id number] | 11/22/19 | [phone] | | Indemn [...] Person | Self | [birth year] | [address] | | Kirk | cristo/Per | | 1960 | [phone] | [place] | | | [place] | | | 8 (Home) | [address] | + +--------+ +--------+ + + | Moe Sanchez | Person | Self | [birth year] | | [address] | | Kirk | al/Fam | | 1960 | [phone] | [place] | | | [place] | | | 8 (Home) | [address] | + +--------+ +--------+ + + | Moe Sanchez | Third | Self | [birth year] | | [address] | | Kirk | Green Party | | 1960 | [phone] | [address] [place] | | | [place] | | | [address] ([place]) | [address] | | | shiva | | | | | + +--------+ +--------+ + + Advance Directives + + + + + | Type | Date Recorded | Patient | Explanation | | | | Systems Security Consultant | | + + + + + | Power of | | | | | Project Controls Specialist | | | | + + + [...]
--- OUTSIDE RECORDS SUMMARY | ~2020-06-15 | XMS | Encounter Summary ---
Demographics + + + | Address | [address] | | | [place] [address] | + + + | Home Phone [...] Team Providers + +------+ + | Care Park Attendant Name | Role | Phone | + +------+ + PCP | Unavailable | + +------+ + Encounter Details +--------+ + + + + | Date | Type | Department | Care Team | Description | +--------+ + + + + | 05/13/ | Hospital | [facility] | | | | 2007 | Encounter | [facility] | | | | | | [address] | | | | | | [place] | | | | | | [address] | | | | | | [phone] | | | +--------+ + + + [...] | | | | | | [place] [address] | | | | | | [phone] | | | | | | | | +--------+ + + + + documented as of this encounter Visit Diagnoses Not on filedocumented in this encounter"
--- OUTSIDE RECORDS SUMMARY | ~2020-06-15 | XMS | Encounter Summary ---
Demographics + + + | Address | [address] | | | [place] [address] | + + + | Home Phone [...] Providers + +------+ + | Care Supervisor Electronics Testing Name | Role | Phone | [...] | | | | [place] | [phone] | | | | | [address] | | | | | | [phone] | | | +--------+ + + + [...] + + + +---------+ + + | Platinum-3 Fatty | CAPS, one capsule by | [...] | | | | | | | #[id number], exp 07/2016 | | | | | [...] [address] | | | | | | [place], | | | | | | [place] [address] | | | | | | [phone] | | | | | | | [...]
--- OUTSIDE RECORDS SUMMARY | ~2020-06-15 | XMS | Encounter Summary ---
Demographics + + + | Address | [address] | | | [place] [address] | + + + | Home Phone [...] Team Providers + +------+ + | Care Refrigerating Engineer Head Name | Role | Phone | [...] + + | 12/09/ | Telephone | [facility] | Emmanuel Daniel MD | Appointment (EGD, | | 2017 | | GASTROENTEROLOGY | [address], [place] | colon Rescheduled to | | | | [address] [place] | [address] [place] | December 24 due to | | | | [address] [place], [place] | [address] | illness) | | | | [address] | | | | | | [phone] | | | +--------+ + + + [...] | | | | | | [place] [address] | | | | | | [phone] | | | | | | | | +--------+ + + + + documented as of this encounter Visit Diagnoses Not on filedocumented in this encounter"
--- OUTSIDE RECORDS SUMMARY | ~2020-06-15 | XMS | Encounter Summary ---
Demographics + + + | Address | [address] | | | [place] [address] | + + + | Home Phone [...] Providers + +------+ + | Care Bottle Cleaner Name | Role | Phone | [...] Description | +--------+--------+ + + + | 05/28/ | Refill | [facility] | Kirk French | Medication Refill | | 2019 | | [facility] | MD Brea [address] | | | | | [facility] | | | | | [address] | [place] [address] | | | | | [place], [place] | [phone] | | | | | [address] | | | | | | [phone] | | | +--------+--------+ + + + [...] Miscellaneous Notes Telephone Encounter - Geri Bear Intake Assessor - 05/29/2020 10:29 AM Tanya ov [facility] umaguila in this encounter Plan of Treatment +--------+ [...] | | | | | | [place] [address] | | | | | | [phone] | | | | | | | | +--------+ + + + + documented as of this encounter Visit Diagnoses Not on filedocumented in this encounter"
--- OUTSIDE RECORDS SUMMARY | ~2020-06-15 | XMS | Encounter Summary ---
Demographics + + + | Address | [address] [place] [address] [address] | | | [place] [address] | + + + | Home Phone [...] + + + | Author | [facility] | + + + | Organization | [facility] | + + + | Address | Unknown | + + + | Phone | Unavailable | + + + Support + + + + + | Name | Relationship | Address | Phone | + + + + + | Rachel Valencia | ELIEZER | [place] | | | | | [address] | | + + + + + Care Team Providers + +------+ + | Care Data Officer Name | Role | Phone | [...] | | 2019 | | Center at [facility] [address] | MD [address] | | | | | [address] [place] | [place], [place] | | | | | for Health and | [address] | | | | | [facility] [address] | [phone] | | | | | [place], [place] | | | | | | [address] | | | | | | [phone] | | | +--------+ + + + [...]
--- OUTSIDE RECORDS SUMMARY | ~2020-06-15 | XMS | Encounter Summary ---
Demographics + + + | Address | [address] [place] [address] [address] | | | [place] [address] | + + + | Home Phone | | + + + | Preferred Language | Unknown | + + + | Marital Status | | + + + | Christian Affiliation | Unknown | + + + [...] [place] | | | | | [address] | | + + + + + Care Team Providers + +------+ + | Care Outside Plant Engineer Name | Role | Phone [...] | Review | | | | [address] | [place], [place] | | | | | [facility] | [address] | | | | | [facility], [facility] | [phone] | | | | | [place], [place] | | | | | | [address] | | | | | | [phone] | | | +--------+ + + + [...]
--- OUTSIDE RECORDS SUMMARY | ~2020-06-15 | XMS | Encounter Summary ---
Demographics + + + | Address | [address] | | | [place] [address] | + + + | Home Phone [...] Providers + +------+ + | Care Coke Worker Name | Role | Phone | [...] [address] | | | | | [address] | [place] [address] | | | | | [phone] | [phone] | | | | | | | [...] | | | | | | [place] [address] | | | | | | [phone] | | | | | | | [...] documented in this encounter Results External Lab: [facility] (11/25/2018 12:04 PM PST) + + + [...] + + + + | Non- | 4.95 | 4.20 - 5.70 | [...]
--- OUTSIDE RECORDS SUMMARY | ~2020-06-15 | XMS | Encounter Summary ---
Demographics + + + | Address | [address] | | | [place] [address] | + + + | Home Phone [...] Team Providers + +------+ + | Care Photo Lab Specialist Name | Role | Phone | + +------+ + | Kirk French MD | PCP | | + +------+ + Reason for Visit +--------+--------+ + | Reason | Onset | Comments | | | Date | | +--------+--------+ + | Other | 04/12/ | issues with low blood pressure and dizziness | | | 2016 | | +--------+--------+ + Encounter Details +--------+ + + + + | Date | Type | Department | Care Team | Description | +--------+ + + + + | 04/12/ | Telephone | [facility] | Daljit Singletary, | Other (issues with | | 2017 | | CARDIOLOGY [address] | MD [address] [place] | low blood pressure | | | | [place], | [place], | and dizziness) | | | | [place] [address] | [place] [address] | | | | | [phone] | [phone] | | | | | | | [...] Telephone Encounter - Darlene Tirado RN - 04/12/2017 2:07 PM PDTPer conversation with Brea Brasher, patient should decrease Metoprolol to 100mg one time daily, check blood pressure and pulse twice daily for two weeks and send in. Amilcar notified ............................... ............Darlene Tirado RN on 04/12/17 at 14:08 elephone Encounter - Darlene Tirado RN - 04/12/2017 10:01 AM PDTFrousmane called, he states that recently he has been very dizzy. He states that he is so dizzy that when he goes from lying down to sitting up he almost blacks out. He reports his vitals are in the range of 97/75, p85. He is not sure what he should do. I will consult Dr Brasher and then let him know ...................... .....................Darlene Tirado RN on 04/12/17 at 10:02 documented in this encounter Plan of Treatment [...] | | | | | | [place] [address] | | | | | | [phone] | | | | | | | | +--------+ + + + + documented as of this encounter Visit Diagnoses Not on filedocumented in this encounter"
--- OUTSIDE RECORDS SUMMARY | ~2020-06-15 | XMS | Encounter Summary ---
Demographics + + + | Address | [address] | | | [place] [address] | + + + | Home Phone [...] Providers + +------+ + | Care Edge Runner Name | Role | Phone | [...] | | PVCs | [address] [place] | [address] | | | | | Procedures | [address] | [address] | | | | | [place] OFFICE | [place] | [place]ove | | | | | CONSULTATION | [place], | [address] Phone: | | | | | NEW/ESTAB | [place] | [phone] | | | | | PATIENT 39 | [address] | Fax: | | | | | MIN | Phone: | [phone] | | | | | | [phone] | | | | | | | Fax: | | | | | | | [phone] | | +--------+--------+ + + + + [...] [address], | | | | | [address] | [place] [address] | | | | | [address] | [phone] | | | | | [phone] | | | +--------+---------+ + + + [...] Gambino MD - 11/30/2014 5:37 PM PST [facility] [address] [place], [place] [address] Patient Name: Moe Sanchez Date: 1960 Date [...] tablet Take 1 tablet by mouth Daily. [facility] Natural Products (OSTEO BI-FLEX/5-LOXIN ADVANCED PO) Take by mouth. Takes 2 table ts in the morning and 2 tablets at night Nattokinase 100 MG CAPS Take by mouth 2 (two) times daily. nitroglycerin (NITROSTAT) 0.[address] 1 tablet under the tongue every 5 luz marcos as needed for Chest pain. [place]-3 Fatty Acids (SALMON OIL-1000 PO) CAPS, one capsule by mouth daily twice daily ONE TOUCH DELICA LANCETS [facility] Check glucose as needed for hypoglycemia pantoprazole [...] (1980 1984); Hypoglycemia; Drug addiction in remission ([facility]); HTN (hypertension); Hypercholesterolemia; Bipolar 1 disorder ( [facility]); Insomnia; Chronic neck pain; Depression; Hyperlipidemia; BIPOLAR [...] documented in this enco unter Procedure Notes IRINA VAZQUEZ - 11/30/2014 12:00 AM PSTAssociated Order(s): [...] W | | | | | | [place], | | | | | | [place] [address] | | | | | | [phone] | | | | | | | [...]
--- OUTSIDE RECORDS SUMMARY | ~2020-06-15 | XMS | Encounter Summary ---
Demographics + + + | Address | [address] | | | [place] [address] | + + + | Home Phone [...] Providers + +------+ + | Care Water Reuse Program Manager Name | Role | Phone | + +------+ + | Kirk French MD | PCP | | + +------+ + Reason for Visit +--------+--------+ + | Reason | Onset | Comments | | | Date | | +--------+--------+ + | Other | 01/04/ | | | | 2019 | | +--------+--------+ + Encounter Details +--------+ + + + + | Date | Type | Department | Care Team | Description | +--------+ + + + + | 01/04/ | Telephone | [facility] | Emmanuel Daniel MD | Other | | 2019 | | GASTROENTEROLOGY | [address], [place] | | | | | [address] [place] | [address] [place], [place] | | | | | [address] [place], [place] | [address] | | | | | [address] | | | | | | [phone] | | | +--------+ + + + [...] Telephone Encounter - Kaylynn Copeland RN - 01/04/2019 2:57 PM PSTspoke with patient and reviewed prep instructions for Suprep. Offered him a 7 AM check-in but he is coming fro [place] so we will check in at 8 AM. elephone Encounter - Anastacio Bennett - 01/04/2019 2:27 PM PSTName of Caller: Moe Sanchez Name of Patient: Moe Sanchez Reason for call: Patient called and prep questions regarding his EGD procedure tomorrow manas Dr. Daniel. Routing to clinical staff. Provider/Nurse: Dr. Daniel / Draryn Call back number: [phone] documented in this encou nter Plan of Treatment +--------+ + + [...] | | | | | | [place] [address] | | | | | | [phone] | | | | | | | | +--------+ + + + + documented as of this encounter Visit Diagnoses Not on filedocumented in this encounter"
--- OUTSIDE RECORDS SUMMARY | ~2020-06-15 | XMS | Encounter Summary ---
Demographics + + + | Address | [address] | | | [place] [address] | + + + | Home Phone [...] Providers + +------+ + | Care Claim Investigator Name | Role | Phone | [...] type ER | [address] | [address] | | | | | FUP | [place] | [place], | | | | | Procedures | [place], [place] | [place] [address] | | | | | FUP - SUW & | [address] | Phone: | | | | | EVM PT, LAST | Phone: | [phone] | | | | | SEEN | [phone] | Fax: | | | | | 08-24-18 | Fax: | [phone] | | | | | | [phone] | | +--------+ + + + + [...] | | | | CENTER [address] | [address] [place] | (Primary Dx) | | | | [place], [place] | [place] [address] | | | | | [address] | [phone] | | | | | [phone] | | | +--------+ + + + [...] through Care Everywhere.Chest Pain, Unc ertain Cause (Divehi)documented in this encounter Medications at Time of [...] + + + +---------+ + + | [place]-3 Fatty | CAPS, one capsule [...] might be diff erent from the original. [facility] Moe Sanchez Emergency Department Encounter Note [address] [place] [address] PCP:Kirk French MD [phone] CHIEF COMPLAINT: Chief Complaint Patient presents with Chest Pain ED Room: ED06 [facility] Moe Sanchez is a 58 y.o. [...] include none. The patient does have a ribber. The patient has had risk stratification recently. The patient denies stimulant drug use ever, IVDU ever, use, family history of CA at an age younger than 55. The patient denies history of blood cl ots, coagulation disorder, leg pain/swelling, recent surgery immobilization, cancer, estroge n use, Shortness of breath, cough, or hemoptysis. Language line twx operator made available and used to collect historical [...] performed by Dr. Gambino at [facility] on 01/30/2013. Patient had spontaneous PVCs from [...] to go back in 3 days to [place] for an attempt of ablation under general [...] SERIAL# DATE IMPLANTED GENERATOR Medtronic DDD ADDR01 [id number] 06/14/09 RV LEAD Medtronic Active Bipolar CapSureFix 4076 [id number] 06/14/09 A LEAD Medtronic Active Bipolar CapSurFix 4076 [id number] 06/14/09 Depression with anxiety 12/24/2017 Priority: Medium Coronary artery disease involving [place] coronary artery of [place] heart without angina pectoris 12/21/2013 Priority: Medium [...] by gated SPECT was 53%. Echocardiogram from 02/08/13 shows a Mild left [...] tissue attenuation cannot completely be ruled out. [facility] 12/25/13, shows non critical coronary artery [...] Last Updated: 12/24/2017 Lower back injury (From [facility]) 1981 1985 Hyperlipidemia, mixed Priority: [...] 07/26/[address] Angiogram chest w/constrast 05/26/14 [facility] Hypoglycemia 09/20/2012 Bipolar disorder (HCC) Mixed anxiety [...] Procedure: COLONOSCOPY; Surgeon: Emmanuel Daniel MD; Location: [facility] EGD 12/24/2017 HARDWARE REMOVAL KNEE ARTHROSCOPY Bilateral KNEE SURGERY 2003 meniscus-right LAMINECTOMY 1991 L3-4 LUMBAR DISCECTOMY 1991 L3-4 LUMBAR FUSION 01/2011 6 spine fusions NECK SURGERY NECK SURGERY 08/10/2012 Fusion. [place] PACEMAKER PLACEMENT 06/14/09 ROTATOR CUFF REPAIR Bilateral 03/22/2013 SINUS SURGERY 1997 SPINAL FUSION STOMACH SURGERY UPPER GASTROINTESTINAL ENDOSCOPY N/A 12/24/2017 Procedure: EGD; Surgeon: Emmanuel Daniel MD; Location: [facility] VASECTOMY CURRENT MEDICATIONS Discharge [...] by mouth Daily.Disp-90 tabl et, R-1, Normal [facility] Natural [...] DOSE, CALL 911Disp-100 tablet, R-3 , Normal [place]-3 Fatty Acids (SALMON OIL-1000 PO) CAPS, one capsule by mouth daily twice daily ondansetron (ZOFRAN ODT) 4 mg disintegrating tablet Take 4 mg by mouth every 6 hours as nee ded.Historical Med ONE TOUCH DELICA LANCETS [facility] Check glucose as needed for hypoglycemiaDisp-100 each, [...] FIND Take 1 tablet by mouth Daily. MARINE-J0Dapmbchdku Med UNCODED MEDICATION Diagnosis: Obstructive Sleep Apnea ICD-9: 327.23 Length of Need: 99 MonthsDisp-1 Device, R-0, [id number] -Nasal Pillows, O2695-Nioin Mask, A 7030- Full Face Mask, Z5090-Mxfpzm Humidifier, O8532-Oxqezx Tubing, M3354-Rcpinpbb, U9426-Do instrap A7039/A703 8-Filters valACYclovir (VALTREX) 1 g [...] pH, Urine 5.0 5.0 - 8.0 Specific [place] 1.011 1.001 - 1.030 Protein, Urine Negative [...] were reviewed along with EMS notes and alf record s if applicable. (See chart for [...] 13 SpO2: 95 % BP: (!) 13 0/ FINAL IMPRESSION ICD-10-CM ICD-9-CM 1. Chest pain, unspecified type R07.9 786.50 Follow-up Information Kirk French MD. Specialty: Internal Medicine Contact information: [address] [address] Daljit Singletary MD. Call today. Specialty: Cardiology Contact information: [address] [facility] [address] Discharge Medication List as of 01/02/2019 21:31 [...] Portions of this chart were created with Stormpulse voice recognition software. Inadvertent so und alike [...] | | | | | [place], | | | | | | [place] [address] | | | | | | [phone] | | | | | | | [...] | | | FICATI | | | ON?02/ | | | | | | 9 | | | 18:02? | | | HODGEN | | | , | | | FREDER | | | ICK | | | W?MRN: | | | | | | [id number] | | | [id number] | | | riteri | | | [...] | | | M.D. | | | Floor Installer | | | al | | | [...] | | | ent/60 | | | [id number] | | | -[id number] | | | [...] | | | | ANGELA MARADIAGA MD ([id number]) | | | | | | on [...] | | | | | | [employer] | | | | | [...] [address] | [place] | [phone] | | [facility] | | [address] | | | - LABORATORY | | [...] | s Screen, | | | [facility] | | | Urine | | | MEDICAL | | | | | | CENTER - | | | | | | LABORATORY | | + + + + + + | Benzodiazep | Negative | Negative | [facility] | | | queenie | | | [facility] | | | Screen, | | | MEDICAL | | | Urine | | | CENTER - | | | | | | LABORATORY | | + + + + + + | Cannabinoid | Positive (A) | Negative | [facility] | | | s Screen, | | | [facility] | [...] + | [facility] | [address] | [place] | [phone] | | [facility] | | [address] | | | - LABORATORY | | [...] - 1.030 | [facility] | | | [place], | | | [facility] | | [...] | Comment | Indicated | | [facility] | | | [...] ST. | [address] | [place], [place] | [phone] | | [facility] | | [address] | | | - LABORATORY | | [...] 2.0 | 1.8 - 2.5 mg/dL | [facility] | | | | [...] [address] | [place] | [phone] | | [facility] | | [address] | | | - LABORATORY | | | | + + + + + B Type Natriuretic Peptide (01/02/2019 6:17 PM PST) + +-------+ + + + | Component | Value | Ref Range | Performed | Pathologist | | | | | At | Signature | + +-------+ + + + | BNP | 15 | <100 pg/mL | [facility] | | | | | [...] [address] | [place] | [phone] | | [facility] | | [address] | | | - LABORATORY | | [...] | | | | | | [employer] | | | | | [...] + | [facility] | [address] | [place] | [phone] | | [facility] | | [address] | | | - LABORATORY | | [...] | mL/min/1.73m2 | [facility] | | | [place] | RATE,ESTIMATED | | MEDICAL | | | | mL/min/1.86h2Lzay than | | CENTER - | | [...] 4.1 | 3.2 - 5.0 g/dL | YESSY [...] [address] | [place] | [phone] | | [facility] | | [address] | | | - LABORATORY | | [...] | | Cells | | | [facility] | | | | | | MEDICAL | | | | | | CENTER - | | | | | | LABORATORY | | + + + + + + | Red Blood | 4.34 | 4.30 - 5.70 | [facility] | | | Cells | | M/uL | [facility] [...] | | Immature | | K/uL | [facility] | | | Granulocyte | | | MEDICAL | | | s | | | CENTER - | | | | | | LABORATORY | | + + + + + + | % nRBC | 0 | 0 - 2 per 100 | [facility] | | | | | WBC's | [facility] | | | | | | MEDICAL | | | | | | CENTER - | | | | | | LABORATORY | | + + + + + + | Absolute | 0.00 | 0.00 - 0.01 | [facility] | | | nRBC | | K/uL | [facility] | | [...] ST. | [address] | [place] | [phone] | | [facility] | | [address] | | | - LABORATORY | | [...] | | | | ANGELA MARADIAGA MD ([id number]) | | | | | | on [...]
--- OUTSIDE RECORDS SUMMARY | ~2020-06-15 | XMS | Encounter Summary ---
Demographics + + + | Address | [address] | | | [place] [address] | + + + | Home Phone [...] Team Providers + +------+ + | Care Annealing Torch Operator Name | Role | Phone | [...] 2019 | | GASTROENTEROLOGY | [address], [place] | | | | | [address] [place] | [address] [place], [place] | | | | | [address] [place], [place] | [address] | | | | | [address] | | | | | | [phone] | | | +--------+ + + + [...] to clinical staff. Provider/Nurse: Dr. Daniel / Darryn Call back number: [phone] documented in this encou nter Plan of [...] | | | | | | [place] [address] | | | | | | [phone] | | | | | | | | +--------+ + + + + documented as of this encounter Visit Diagnoses Not on filedocumented in this encounter"
--- OUTSIDE RECORDS SUMMARY | ~2020-06-15 | XMS | Encounter Summary ---
Demographics + + + | Address | [address] | | | [place] [address] | + + + | Home Phone [...] Providers + +------+ + | Care Field Coil Winder Name | Role | Phone [...] + + | 08/17/ | Office | [facility] | Michael Amanda, | Testosterone | | 2012 | Visit | [facility] | DO [address] | deficiency (Primary | | | | [address] | [place] | Dx); Hypoglycemia; | | | | [place] | [address] | Herpes | | | | [address] | | | | | | [phone] | | | +--------+---------+ + + + [...] encounter Progress Notes Michael Amanda DO - 08/17/2013 1:53 PM PDTFormatting of this [...] lowering his testosterone levels. He seen at [facility]. He was prescribed OxyContin and Dilaudid. The [...] erectile dy sfunction. He was seen at [facility] yesterday and they prescribed him testostero ne cypionate injections. He's not sure when they wanted him to come back for labs. He has a followup appointment with [facility] in one month. 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 This note is dictated using Blockchain voice recognition software. This note was dictated [...] | | | | | | [place] [address] | | | | | | [phone] | | | | | | | [...]
--- OUTSIDE RECORDS SUMMARY | ~2020-06-15 | XMS | Encounter Summary ---
Demographics + + + | Address | [address] | | | [place] [address] | + + + | Home Phone [...] Team Providers + +------+ + | Care Chainstitch Felled Seam Operator Name | Role | Phone | [...] | CARDIOLOGY [address] | [address] | Interrogation | | | | [place], | [place], | (Primary Dx); | | | | [place] [address] | [place] [address] | Presence of | | | | [phone] | [phone] | permanent cardiac | | | | [...] Paceart documentation and remote PDF scanned into [employer] for remote interrogation re sults. Data collected [...] | | | | | | [place] [address] | | | | | | [phone] | | | | | | | [...] remote PDF scanned into | | | [facility] for remote interrogation results. Data collected by [...]
--- OUTSIDE RECORDS SUMMARY | ~2020-06-15 | XMS | Encounter Summary ---
Demographics + + + | Address | [address] | | | [place] [address] | + + + | Home Phone [...] Team Providers + +------+ + | Care Sugar Laboratory Assistant Name | Role | Phone | + +------+ + | Michael Amanda DO | PCP | | + +------+ + Encounter Details +--------+ + + + + | Date | Type | Department | Care Team | Description | +--------+ + + + + | 04/03/ | Hospital | [facility] | Jay Gambino MD | | | 2012 - | Encounter | [facility] | [address] | | | | | CARDIAC TRANSPLANT | [address] [place] | | | 04/04/ | | [address] | [place] [address] | | | 2012 | | [place] | [phone] | | | | | [address] | | | | | | [phone] | | | +--------+ + + + [...] 1960 ADMISSION DATE: 04/03/2013 DISCHARGE DATE: 04/04/2013 [id number] / [id number] ADMISSION DIAGNOSES: 1. Symptomatic premature ventricular contractions [...] study and ablati on. MOE GAY ADM:04/03/13 [id number] 04/04/13 [place] DISCHARGE SUMMARY Z640-01 [id number] [facility] PARISA Hughes [facility] MD Meena Pleitez THIS REPORT IS CONFIDENTIAL AND NOT TO BE RELEASED WITHOUT PROPER AUTHORIZATION. [facility] Mr. Gay was taken to the cardiac catheterization lab on the day of admission. He underw ent a comprehensive electrophysiology study with three-dimensional mapping and successful P VC ablation. He tolerated the procedure well and was returned to telemetry post procedure. He remained in an atrial paced/ventricular sensed rhythm with no PVCs. He was mobilized. Haleigh rodarte had no evidence of ecchymosis or hematoma [...] 180 mg once daily. MOE GAY ADM:04/03/13 [id number] 04/04/13 [place] DISCHARGE SUMMARY [id number] [id number] [facility] PARISA Hughes [facility] Jay Gambino MD R THIS REPORT IS CONFIDENTIAL AND NOT TO BE RELEASED WITHOUT PROPER AUTHORIZATION. [facility] 5. Docusate sodium 2 tablets once daily. 6. Marinol 10 mg twice daily. 7. Metoprolol succinate 200 mg once daily. 8. Oxycodone 10 mg 10 mg oral as needed. 9. Oxycodone 30 mg oral twice daily. 10. Pravastatin 40 mg at bedtime. 11. Promethazine 25 mg as needed. 12. Ranitidine 1 to 2 tablets once daily. 13. Paris oil 2 tablets twice daily. 14. Valacyclovir 500 mg once daily. There were no new medications or medication dosage changes at time of discharge. PLAN: 1. Mr. Gay will be discharged home on medications as noted above, including his usual m edications of diltiazem and metoprolol. 2. He will be seen and followed by Dr. Gambino on 16 at 9:00 a.m. at [facility], [address]. 3. He will contact our office earlier than scheduled appointment should he have any diffic ulty prior to that time. PARISA Hughes MD A P RICHIE/med #[id number] cc: MD Dona Pleitez ARNP Suwong Wongsuwan, MD Electronically Signed 04/12/13 1400 PARISA Hughes Electronically Signed 05/22/13 1245 Jay Gambino MD MOE GAY ADM:04/03/13 [id number] 04/04/13 [place] DISCHARGE SUMMARY Z640-01 [id number] [facility] PARISA Hughes [facility] MD Meena Pleitez THIS REPORT IS CONFIDENTIAL AND NOT TO BE RELEASED WITHOUT PROPER AUTHORIZATION.Electronica lly signed by Jael Brown at 05/22/2013 1:25 PM Dona Grossman ARNP - 04/04/2013 9:05 AM PDT PATIENT NAME: MOE GAY Sex/Age: M / 53Y : 1960 ADMISSION DATE: 04/03/2013 DISCHARGE DATE: 04/04/2013 [id number] / [id number] ADMISSION DIAGNOSES: 1. Symptomatic premature ventricular contractions [...] study and ablati on. MOE GAY ADM:04/03/13 [id number] 04/04/13 [place] DISCHARGE SUMMARY [id number] [id number] [facility] PARISA Hughes [facility] MD Meena Pleitez THIS REPORT IS CONFIDENTIAL AND NOT TO BE RELEASED WITHOUT PROPER AUTHORIZATION. [facility] Mr. Gay was taken to the [...] 180 mg once daily. MOE GAY ADM:04/03/13 [id number] 04/04/13 [place] DISCHARGE SUMMARY Z640-01 [id number] [facility] PARISA Hughes [facility] Jay Gambino MD R THIS REPORT IS CONFIDENTIAL AND NOT TO BE RELEASED WITHOUT PROPER AUTHORIZATION. [facility] 5. Docusate sodium 2 tablets once daily. 6. Marinol 10 mg twice daily. 7. Metoprolol succinate 200 mg once daily. 8. Oxycodone 10 mg 10 mg oral as needed. 9. Oxycodone 30 mg oral twice daily. 10. Pravastatin 40 mg at bedtime. 11. Promethazine 25 mg as needed. 12. Ranitidine 1 to 2 tablets once daily. 13. Paris oil 2 tablets twice daily. 14. Valacyclovir 500 mg once daily. There were no new medications or medication dosage changes at time of discharge. PLAN: 1. Mr. Gay will be discharged home on medications as noted above, including his usual m edications of diltiazem and metoprolol. 2. He will be seen and followed by Dr. Gambino on at 9:00 a.m. at [facility], [address]. 3. He will contact our office earlier than scheduled appointment should he have any diffic ulty prior to that time. PARISA Hughes MD A P RICHIE/med #[id number] cc: MD Dona Pleitez ARNP Suwong Wongsuwan, MD Electronically Signed 04/12/13 1400 PARISA Hughes MOE GAY ADM:04/03/13 [id number] 04/04/13 [place] DISCHARGE SUMMARY Z640-01 [id number] [facility] PARISA Hughes [facility] Jay Gambino MD R THIS REPORT IS CONFIDENTIAL AND NOT TO BE RELEASED WITHOUT PROPER AUTHORIZATION.Electronica lly signed by Jael Brown at 04/12/2013 2:01 [...] mg by mouth | | 0 | /20 | | | (BENADRYL) 25 MG | as needed. | | | 12 | | | capsule | | | | | | + + + +---------+ + + | [place]-3 Fatty | CAPS, one capsule by | [...] encounter Procedure Notes Jay Gambino MD - 04/03/2013 10:00 AM PDT PATIENT NAME: MOE GAY Sex/Age: M / 53Y : 1960 TEST AND TURN UP TECHNICIAN: Jay Gambino MD DATE: 04/03/2013 PROCEDURE: 1. Comprehensive electrophysiology study. 2. Coronary sinus catheter placement. 3. 3-D mapping with NavX system. 4. PVC ablation. 5. Isoproterenol administration. HISTORY: Mr. Gay is a 53-year-old gentleman with very symptomatic PVCs which are origin ating from the right ventricular outflow tract and underwent prior EP study and ablation pr ocedure. This was limited due to patient movement from discomfort from the PVC ablation, as well as a ridge within the right ventricular outflow tract. The patient presents today for repeat mapping and ablation procedure. PROCEDURE DETAILS: Informed consent was obtained. The patient was taken to the electrophys iology laboratory in a fasting state. The patient was given general anesthesia for sedation . The patient was prepped and draped in the usual sterile fashion. Access was made via the right femoral vein with 8 [place], 7 [place], and 6 [place] sheaths. Prior to the procedure, t he patient's dual-chamber Medtronic pacemaker was reprogrammed from MVP with rate responsi veness on at a rate of 70 beats per minute to AAI mode, at a lower rate of 50 beats per min catie. Prior to the procedure impedance was 371 ohms through the atrium with threshold 0.75 v at 0.4 ms, P waves 4 mV, ventricular impedance 475 ohms, threshold 0.75 v at 0.4 ms, R wav es greater than 22.4 mV. Catheters were then advanced up into the heart. At baseline, the patient was in sinus rhyt hm with a UT interval of 154, QRS 107, QT 422, VV 895, AH 67, H-V 52. With atrial pacing, A V Wenckebach occurred at 340 ms. AV lydia ERP at a drivetrain of 600 ms was less than or eq ual to [address] a [address] train of 600 ms the atrial ERP was 250 ms. With ventricular pacing, there was VA conduction present. VA Wenckebach occurred at 320 ms . VA ERP at a drivetrain of 600 ms was less than or equal to 290 ms. VA ERP at a drive beni n of 400 ms was less than or equal to 270 ms. Ventricular ERP from the right ventricular ap ex at a drivetrain of 600 ms and 400 ms was 290 ms, then 270 ms respectively. Isoproterenol was then administered up to 2 mcg per minute. With isoproterenol administrat ion the patient began having PVCs which were of a left bundle branch block morphology, with left inferior access with transition in V4, positive in I and aVL, with a small T wave in aVL. A MOE KING ADM:04/03/13 [id number] 04/04/13 [place] CARDIAC PROCEDURE REPORT [id number] [facility] Jay Gambino MD E-Sign: [facility] THIS REPORT IS CONFIDENTIAL AND NOT TO BE RELEASED WITHOUT PROPER AUTHORIZATION. [facility] ThermaCool 2.5 mm irrigated F-curved catheter was then advanced into the right ventricular outflow tract and 3-D mapping was performed using the [employer] navigation system. With mapping earliest activation was seen in the lower RVOT near the posterior free wall area. Earliest activation at this point was 20 ms. We were able to see a good electrogram with sharp low amplitude fractionation of approximately 17 to 20 ms prior to the onset of QRS. Radiofrequ ency energy was delivered in this area using an irrigated catheter at 30 garcia. With ablati on, the patient had initial increase in PVCs followed by termination of PVCs. A second abla tion was performed in this area. After this ablation, we no longer had spontaneous recurren ce of the PVC throughout the remainder of the procedure over a greater than 30 minute wait ing period. A "chari" of ablation lesions was performed in this area. Of note, because th is was right next to a ridge in the patient's anatomy due to respirations causing the cristy ter to drop off the ridge, we did hold breath for up to 30 seconds to allow for ablation le sions. The patient tolerated the procedure well. There were no immediate complications. The isopr oterenol was discontinued and with further ventricular stimulation we were unable to induce any PVCs. The Medtronic pacemaker was then reinterrogated and reprogrammed back to MVP at a lower rate of 70 beats per minute with rate responsiveness on. Lead parameters were agai n rechecked and were not significantly changed from the preablation state. The patient had sheaths removed and manual pressure held for hemostasis. He will remain supine for approxim ately four hours. Jay Gambino MD A P MARVIN/[facility] #[id number] cc: Jay Gambino MD Electronically Signed 05/22/13 0745 Jay Gambino MD MONA GAY ADM:04/03/13 [id number] 04/04/13 [place] CARDIAC PROCEDURE REPORT [id number] [facility] Jay Gambino MD E-Sign: [facility] THIS REPORT IS CONFIDENTIAL AND NOT TO BE RELEASED WITHOUT PROPER AUTHORIZATION.Electronica lly signed by Jael Brown at 05/22/2013 7:46 AM PDTdocumented in this encounter Plan of [...] | | | | | | [place], | | | | | | [place] [address] | | | | | | [phone] | | | | | | | [...] + + + | Glucose | 94Comment: Wallisian | 65 - 99 mg/dL | [facility] [...] + + + + + | [facility] | [address] | [place] [address] | | | [facility] | | | | | LABORATORY | | | | + + + + + CBC no Differential (04/03/2013 6:04 AM PDT) + +---------+ + + + | Component | Value | Ref Range | Performed | Pathologist | | | | | At | Signature | + +---------+ + + + | White Blood | 4.5 | 3.8 - 11.0 K/uL | [facility] | | | [facility] | [facility] | | | | | [facility] | | | | | | MEDICAL | | | | | | CENTER | | | | | | LABORATORY | | + +---------+ + + + | Red Blood | 4.62 | 4.20 - 5.70 | [...] + | [facility] | [address] | [place] [address] | | | [facility] | | | | | LABORATORY | | | | + + + + + documented in this encounter Visit Diagnoses Not on filedocumented in this encounter
--- OUTSIDE RECORDS SUMMARY | ~2020-06-15 | XMS | Encounter Summary ---
Demographics + + + | Address | [address] [place] [address] [place] | | | [place] [address] | + + + | Home Phone [...] + + | Author | [facility] | + + + | Organization | [facility] | + + + | Address | Unknown | + + + | Phone | Unavailable | + + + Support + + + + + | Name | Relationship | Address | Phone | + + + + + | Rachel Valencia | [address] | [place] | | | | | [address] | | + + + + + Care Team Providers + +------+ + | Care Window And Siding Craftsman Name | Role | Phone | + [...] | | 2019 | | Center at [facility] [address] | MD [address] | | | | | [address] | [place], [place] | | | | | for Health and | [address] | | | | | [facility], [facility] 2 | [phone] | | | | | [place], [place] | | | | | | [address] | | | | | | [phone] | | | +--------+ + + + [...]
--- OUTSIDE RECORDS SUMMARY | ~2020-06-15 | XMS | Encounter Summary ---
Demographics + + + | Address | [address] [place] [address] [address] | | | [place] [address] | + + + | Home Phone [...] [place] | | | | | [address] | | + + + + + Care Team Providers + +------+ + | Care Wind Plant Manager Name | Role | Phone [...] | | [address] | [place], [place] | | | | | [facility] and | [address] | | | | | Healing, [facility] | [phone] | | | | | [place], [place] | | | | | | [address] | | | | | | [phone] | | | +--------+ + + + [...]
--- OUTSIDE RECORDS SUMMARY | ~2020-06-15 | XMS | Encounter Summary ---
Demographics + + + | Address | [address] | | | [place] [address] | + + + | Home Phone [...] Providers + +------+ + | Care Traffic Clerk Name | Role | Phone | [...] | | | pain | [address] | [address] | | | | | Procedures | [facility] [place] | [place], | | | | | [place] [facility] | [place] | [place] | | | | | Stress Test | [address] | [address] | | | | | (Vasodilator | Phone: | Phone: | | | | | ) CHG | [phone] | [phone] | | | | | MYOCARDIAL | Fax: | Fax: | | | | | SPECT | [phone] | [phone] | | | | | MULTIPLE | | | | | | | STUDIES | | | +--------+--------+ + + + + Encounter Details +--------+ + + + + | Date | Type | Department | Care Team | Description | +--------+ + + + + | 12/06/ | Hospital | [facility] | Geri Angel, | Other chest pain | | 2013 | Encounter | MED CTR XRAY [address] | CLOUD SOFTWARE ENGINEER [address] | | | | | [place] | [place] | | | | | [place] [address] | [address] | | | | | [phone] | | | +--------+ + + + [...] + + + +---------+ + + | [place]-3 Fatty | CAPS, one capsule by | [...] | | | | | | [place] [address] | | | | | | [phone] | | | | | | | [...] Performed At | + + + | [facility] Diagnostic Imaging | [place] | | Department [address] | [facility] | | [ rep [address]] [ rep [facility] | | [facility]] Signed | - IMAGING | | | | | Patient Name: MOE GAY W | | | Physician: JACKLYN : 1960 Age: 53 Sex: M Unit | | | #: [id number] Exam Date: 12/06/13 Location: | | | [facility] Report #: [id number] Page: | | | %(RAD)RES..mtdd.print.filter("pg") of %(RAD) | | | RES..mtdd.print.filter("tpg") | | | | | | Accession Number: [id number] | | | PERSANTINE SESTAMIBI STRESS TEST, [...] Transcribed Date/Time: 12/07/2013 08:18 | | | Film Projector Operator: <<Signature on File>> | | | | | | Daljit Singletary MD [facility] FAS12/07/13 1321 <Electronically signed | | | by Daljit Singletary MD, FAC, FACP, ADELINE, [facility]> Daljit | | | MD Gemini [facility] ADELINE 12/07/13 0701 Film Projector Operator: Jessica | | | Oduspecggylry00/16/14 0818 PARISA Garcia | | + + + + + + + + | Performing | Address | City/State/Zipcode | Phone Number | | Organization | | | | + + + + + | [facility] | [address] | [place] | [phone] | | [facility] | | [address] | | | - IMAGING | | | | + + + + + documented in this encounter Visit Diagnoses + + | Diagnosis | + + | Other chest pain | + + documented in this encounter
--- OUTSIDE RECORDS SUMMARY | ~2020-06-15 | XMS | Encounter Summary ---
Demographics + + + | Address | [address] | | | [place] [address] | + + + | Home Phone [...] Providers + +------+ + | Care Case Finisher Name | Role | Phone | + +------+ + PCP | Unavailable | + +------+ + Encounter Details +--------+ + + + + | Date | Type | Department | Care Team | Description | +--------+ + + + + | 05/13/ | [facility] | [facility] | Dom Graham, | | | 2010 | Encounter | MED CTR EMERGENCY | [address] | | | | | CENTER [address] | [place] | | | | | [place] | [address] | | | | | [address] | | | | | | [phone] | | | +--------+ + + + [...] documented as of this encounter ED Notes Dom Graham MD - 05/13/2011 3:01 PM PDT+DATE: 05/13/2011 HISTORY OF PRESENT ILLNESS: This is a 51-year-old male, his chief complaint is palpitation s. He says this morning he started to develop palpitations with some nausea and also some c hest tightness. He h as had similar symptoms in the past. He has had a pacemaker for bradyc ardia, but is not known to have any coronary artery disease. He says the chest discomfort s tarted about an hour prior to arrival and was about an 8/10, associated with some lighthead edness. He has had an appendectomy in the past, as well as cervical and lumbar spine surger ies with chronic neuropathy in his lower extremities. SOCIAL HISTORY: He is a nonsmoker. ALLERGIES 1. CLARITHROMYCIN. 2. PENICILLIN. HOME MEDICATIONS 1. OxyContin. 2. Metoprolol. 3. Fish oil. 4. Chewable aspirin. 5. Lisinopril. 6. Vitamin C. 7. Lactulose. 8. Metamucil. 9. Ibuprofen. REVIEW OF SYSTEMS: A complete review of systems negative except as detailed in the HPI abo ve. PHYSICAL EXAMINATION VITAL SIGNS: Blood pressure 132/98, heart rate 75, respirations 18, afebrile, 97% on room air. No ac catie distress. HEENT: Pupils equal and reactive to light and accommodation. Extraocular movements intact. Oral muco sa moist. NECK: Supple. Nontender. CARDIAC: Normal S1, S2. LUNGS: Clear to auscultation bilaterally. ABDOMEN: Soft, nontender, nondistended. Normal bowel sounds. NEUROLOGIC: Cranial nerves 2-12 intact. Normal sensation, motor, and strength in all 4 ext remities. Alert and oriented x3. SKIN: No rashes or lesions. HOSPITAL COURSE: EKG shows an electronically atrial pace at a rate of 70, it is a sinus rh ythm. He d oes have T-wave inversions in III and aVF that have been seen on a similar EKG, June 17, 2009, no lisbeth nges. Otherwise normal EKG. Chest x-ray shows no acute abnormalities. His CBC within normal limits sa ve platelets of 127. Comprehensive metabolic panel within normal limits. Troponin less than 0.01. A r epeat troponin 3 hours later, less than 0.01, t he patient is pain free. He was given aspirin and a si ngle nitroglycerin, his symptoms hav e resolved. He will be discharged home. He has appointment with h is force variation equipment tender tomorrow. He should return to the ER if he develops any new or concerning symptoms. DICTATED BY: Dom Graham M.D. Emergency Medicine JOB #: [id number] EXT JOB #:[id number] <Electronicall y Signed by Dom Graham MD> 05/14/11 1533 documented in this encounter Plan of Treatment [...] | | | | | | [place] [address] | | | | | | [phone] | | | | | | | [...] | | | | | the [employer] | | | | | | Access Analyzer. | | | | + + + + + + + + | Specimen | + + | | + + + + + + + | Performing | Address | City/State/Zipcode | Phone Number | | Organization | | | | + + + + + | [facility] | [address] | [place], [place] | [phone] | | [facility] | | [address] | | | - LABORATORY | | | | + + + + + | [facility] | [address] | [place], [place] | | | [facility] | | [address], [facility] | | | - LABORATORY | | | | + + + + + CBC with Differential (05/13/2011 3:46 PM PDT) + +---------+ + + + | Component | Value | Ref Range | Performed | Pathologist | | | | | At | Signature | + +---------+ + + + | White Blood | 7.4 | 4.0 - 11.0 K/uL | [facility] | | | Cells | | | [facility] | | | | | | MEDICAL | | | | | | CENTER - | | | | | | LABORATORY | | + +---------+ + + + | Red Blood | 4.46 | 4.30 - 5.70 | [...] | | | | | gm/dL | [facility] | | | [...] + | [facility] | [address] | [place], [place] | [phone] | | [facility] | | [address] | | | - LABORATORY | | | | + + + + + | [facility] | [address] | [place], [place] | | | [facility] | | [facility], [facility] | | | - [...] [address] | [place] | [phone] | | [facility] | | [address] | | | - LABORATORY | | | | + + + + + | [facility] | [address] | [place] | | | [facility] | | [address], [facility] | | | - [...] | | | | | | the [employer] | | | | | | Access Analyzer. | | | | + + + + + + + + | Specimen | + + | | + + + + + + + | Performing | Address | City/State/Zipcode | Phone Number | | Organization | | | | + + + + + | [facility] | [address] | [place], [place] | [phone] | | [facility] | | [address] | | | - LABORATORY | | | | + + + + + | [facility] | [address] | [place], [place] | | | [facility] | | [id number] [place] [address] | | | - LABORATORY | | | | + + + + + XR Chest AP Portable (05/13/2011 3:01 PM PDT) + + | Specimen | + + | | + + + + + | Narrative | Performed At | + + + | [facility] Department | [facility] | | [address] [facility] | [facility] | | PORTABLE CHEST CLINICAL | [...] Transcribed Date/Time: | | | 05/13/2011 17:06 Supervisor Gas Meter Repair: <Electronically Signed | | | by Jama Solis MD> 05/13/112038 | | + + + + + | Procedure Note | + + | Kalpesh Brown Conversion - 12/29/2013 3:12 PM [facility] | | Diagnostic Imaging Department [address] [facility] | | PORTABLE CHEST CLINICAL HISTORY: TACHYCARDIA. [...] 16:57 | |Transcribed Date/Time: 05/13/2011 17:06 | |Supervisor Gas Meter Repair: | |<Electronically Signed by Jama Solis MD> [...]
--- OUTSIDE RECORDS SUMMARY | ~2020-06-15 | XMS | Encounter Summary ---
Demographics + + + | Address | [address] | | | [place] [address] | + + + | Home Phone [...] Team Providers + +------+ + | Care Hospital Educator Name | Role | Phone | + [...] | | | Diarrhea/ | [address] | [place], [place] | | | | | Rectal | [place] | [address] | | | | | Bleeding | [address] | Phone: | | | | | from [facility] | Phone: | [phone] | | | | | referral. | [phone] | Fax: | | | | | | Fax: | [phone] | | | | | | [phone] | | + + + + + [...] + + | 01/21/ | Telephone | [facility] | Kirk French | Other (wanted to let | | 2019 | | [facility] | MD Brea [address] | us know the St. | | | | [facility] [address] | Apolonia'gena cancelled his | | | | [address] | [place] [address] | appointment for a | | | | [place], [place] | [phone] | colonoscopy) | | | | [address] | | | | | | [phone] | | | +--------+ + + + [...] Patient state he received a call from [facility] last to wilmer weiner his appointment for colonoscopy due rodríguez virus outbreak. Patient is wanting to see i f its possible for him to get a colonoscopy at our [facility] gastro. Call back at [phone] Sia Vasquez Ext 7979 elephone Encounter - Hailey Girard, Senior Accounting Clerk - 01/22/2020 10:59 AM PSTFYI. Electronicall y signed by Hailey Padron, Senior Accounting Clerk at 01/22/2020 10:59 AM PSTTelephone Encounter - Vicki Adler - 01/22/2020 8:51 AM PSTFred, is calling regarding Other (pawan patel to let us know the [facility] cancelled his appointment for a colonoscopy) and would like a call back. Additional Call Details: He wanted to let us know and also wanted to let us know that [facility] is going to get a hold of us for him to swallow the camera her at [facility]. If this is a symptom based call, was patient offered triage? Not Applicable If this is a symptom based call and you were unable to immediately transfer the call to a lorraine bellamy network intern was caller made aware that if at [...] W | | | | | | [place], | | | | | | [place] [address] | | | | | | [phone] | | | | | | | [...]
--- OUTSIDE RECORDS SUMMARY | ~2020-06-15 | XMS | Encounter Summary ---
Demographics + + + | Address | [address] | | | [place] [address] | + + + | Home Phone [...] Team Providers + +------+ + | Care Propagation Manager Name | Role | Phone | + +------+ + PCP | Unavailable | + +------+ + Encounter Details +--------+ + + + + | Date | Type | Department | Care Team | Description | +--------+ + + + + | 06/25/ | [facility] | [facility] | Daljit Singletary, | | | 2008 | Encounter | MED CTR XRAY [address] | [address] [place] | | | | | [place] | [facility] [place], | | | | | [place] [address] | [place] [address] | | | | | [phone] | [phone] | | | | | | | [...] | | | | | | [place] [address] | | | | | | [phone] | | | | | | | | +--------+ + + + + documented as of this encounter Visit Diagnoses Not on filedocumented in this encounter"
--- OUTSIDE RECORDS SUMMARY | ~2020-06-15 | XMS | Encounter Summary ---
Demographics + + + | Address | [address] | | | [place] [address] | + + + | Home Phone [...] Team Providers + +------+ + | Care Helicopter Pilot Instructor Name | Role | Phone | [...] | | | | PVCs | PARISA Venron | [address] | | | | | Procedures | [address] | [address] | | | | | [place] OFFICE | [place] | [place] | | | | | CONSULTATION | [place], | [address] Phone: | | | | | NEW/ESTAB | [place] | [phone] | | | | | PATIENT 40 | [address] | Fax: | | | | | MIN | Phone: | [phone] | | | | | | [phone] | | | | | | | Fax: | | | | | | | [phone] | | +--------+--------+ + + + + [...] [address], | | | | | [address] | [place] [address] | | | | | [address] | [phone] | | | | | [phone] | | | +--------+---------+ + + + [...] Gambino MD - 11/30/2014 5:37 PM PST [facility] [address] [place], [place] [address] Patient Name: Moe Sanchez Date: 1960 Date [...] tablet Take 1 tablet by mouth Daily. [facility] Natural Products (OSTEO BI-FLEX/5-LOXIN ADVANCED PO) Take by mouth. Takes 2 table ts in the morning and 2 tablets at night Nattokinase 100 MG CAPS Take by mouth 2 (two) times daily. nitroglycerin (NITROSTAT) 0.[address] 1 tablet under the tongue every 5 luz marcos as needed for Chest pain. [place]-3 Fatty Acids (SALMON OIL-1000 PO) CAPS, one capsule by mouth daily twice daily ONE TOUCH DELICA LANCETS [facility] [place] Check glucose as needed for hypoglycemia pantoprazole [...] (1980 1984); Hypoglycemia; Drug addiction in remission ([facility]); HTN (hypertension); Hypercholesterolemia; Bipolar 1 disorder ( [facility]); Insomnia; Chronic neck pain; Depression; Hyperlipidemia; BIPOLAR [...] W | | | | | | [place], | | | | | | [place] [address] | | | | | | [phone] | | | | | | | [...]
--- OUTSIDE RECORDS SUMMARY | ~2020-06-15 | XMS | Encounter Summary ---
Demographics + + + | Address | [address] | | | [place] [address] | + + + | Home Phone [...] Providers + +------+ + | Care Printing Engineer Name | Role | Phone | [...] + + | 12/09/ | Telephone | [facility] | Emmanuel Daniel MD | Appointment (EGD, | | 2017 | | GASTROENTEROLOGY | [address], [place] | colon Rescheduled to | | | | [address] [place] | [address] [place] | December 24 due to | | | | [address] [place], [place] | [address] | illness) | | | | [address] | | | | | | [phone] | | | +--------+ + + + [...] | | | | | | [place] [address] | | | | | | [phone] | | | | | | | | +--------+ + + + + documented as of this encounter Visit Diagnoses Not on filedocumented in this encounter"
--- OUTSIDE RECORDS SUMMARY | ~2020-06-15 | XMS | Encounter Summary ---
Demographics + + + | Address | [address] | | | [place] [address] | + + + | Home Phone [...] Team Providers + +------+ + | Care Morphology Teacher Name | Role | Phone | + +------+ + | Mihcael Amanda DO | PCP | | + +------+ + Reason for Visit +--------+--------+ + | Reason | Onset | Comments | | | Date | | +--------+--------+ + | Other | 04/09/ | | | | 2013 | | +--------+--------+ + Encounter Details +--------+ + + + + | Date | Type | Department | Care Team | Description | +--------+ + + + + | 04/09/ | Telephone | [facility] [place] | Silvia, | Other | | 2013 | | CARDIOLOGY [address] | PARISA [place] [address] | | | | | [place], | [place], | | | | | [place] [address] | [place] [address] | | | | | [phone] | [phone] | | | | | | | [...] Telephone Encounter - Darlene Tirado RN - 04/09/2014 2:52 PM PDTFred is notified, he is willing to try the CT here at [facility] if needed but not at [facility] ...................... .....................Darlene Tirado RN on 04/09/2014 at 14:53 elephone Encounter - Kailey Pruitt RN - 04/09/2014 11:36 AM PDTSpoke to PARISA Russell, she would like patient to decrease clonidine back to ordered three times per day and increase amlodipine fr om 5 to 10 mg per day if pressure is 160 systolic and keep a blood pressure log, call in a [place] with the pressures and PARISA Russell may want to adjust medications further. She also advised a CT was probably ordered to check for aortic dissection as his pressures were high and this should not be considered unnecessary radiation. Called patient and left message. Electronically signed by: Kailey Pruitt RN 04/09/2014 11:41 elephone Encounter - Janeen Parekh ARNP - 04/09/2014 11:34 AM PDTIncrease amlodipine 10 mg by mouth daily and c ontinue taking clonidine 0.2 mg 3 times a day as previously. Will pressure log for 1 week a nd please call back after one week with results. We're trying to keep his blood pressure at least below 160 systolic. This explained to patient that at [facility] wanted to do a C T angiogram because of his ascending aortic aneurysm and a chest pain and possibility of rul e out rupture because of his high blood pressures in his chest pain.Thanks! ...........................................PARISA Russell on 04/09/2014 at 11:38 elephone Encounter - Repoff, Kailey Molina RN - 04/09/2014 9:34 AM PDTPatient called and left a message that he had chest pain Wednesday and Wednesday, was short of breath, his blood pressure was "screaming". He took some nitro which helped and his blood pressure is ok now - he is using extra clonidine . Called patient, he did not answer his cell phone. Called patient and he states his blood p ressures were: Wednesday AM: 148/112, 165/118 with pulse of 82, 187/120. He then took a nitro a nd went into [facility] for treatment. While there he refused a CT. He states he was told by a doctor at [facility] that CTs give him unneccesary radiation, so he refused a CT from [facility]. He states that he has been adjusting his clonidine to reduce hos blood pressure. He normally takes 3 a day but is taking 4-5 a day. Advised him I would speak with PARISA Waldron and find out if she has any instructions and get back to him. He states he is celeste ling to go to [facility] but will not go back to [facility]. documented in this encounter Plan of Treatment [...] | | | | | | [place] [address] | | | | | | [phone] | | | | | | | | +--------+ + + + + documented as of this encounter Visit Diagnoses Not on filedocumented in this encounter
--- OUTSIDE RECORDS SUMMARY | ~2020-06-15 | XMS | Encounter Summary ---
Demographics + + + | Address | [address] | | | [place] [address] | + + + | Home Phone [...] + + | 10/23/ | [facility] | [facility] | [place]via, | CAD (coronary artery | | 2013 | Visit | CARDIOLOGY [address] | PARISA [place] [address] | disease) (Primary | | | | [place], | [place], | Dx); Other chest | | | | [place] [address] | [place] [address] | pain; Chest pain; | | | | [phone] | [phone] | Coronary artery | | | | [...] Sanchez Date: October 23, 2014 : 1960 Tar Worker: Kailey Pruitt RN Device Etch Operator Semiconductor Wafers: Medtronic Sense (mV) Impedance (?) Capture (V) Capture (ms) A Lead 2.80-4.00 407 1.500 0.09 RV Lead 22.40-31.36 519 2.000 0.09 LV Lead Battery Impedance (?): 658 Battery Voltage (V): 2.79 NC Interval (ms): 155 AR Interval (ms): 240 VA Conduction: Mode Switch Events: 1 % of time: <0.1 -PRIMER BOXER: <0.1% AP-PRIMER BOXER: <0.1% -VS: 13.8% AP-VS: 86.1% PRIMER BOXER: Magnetic Rate: 85 LINDA: 65 LEAH: Current [...] needed for Chest pain. 25 tablet 12 [place]-3 Fatty Acids (SALMON OIL-1000 PO) CAPS, one [...] attenuation cannot completely be ruled out. [facility] 12/25/13, shows non critical coronary artery [...] He is i n class I-II of [place] [employer] Association functional class. There are no [...] ventricular arrhythmia performed by Dr. Gambino at [facility] on 01/30/2013. Patient had spontaneous PVCs [...] to go back in 3 days to [place] for an attempt of ablation under [...] dizziness. He is in class I-II of [place] Heart Association functional class. There are n [...] this chart may have been created with [employer] voice recognition software. Occasi onal wrong-word or [...] Sanchez Date: October 23, 2014 : 1960 Tar Worker: Kailey Pruitt RN Device Etch Operator Semiconductor Wafers: Medtronic Sense (mV) Impedance (?) Capture (V) Capture (ms) A Lead 2.80-4.00 407 1.500 0.09 RV Lead 22.40-31.36 519 2.000 0.09 LV Lead Battery Impedance (?): 658 Battery Voltage (V): 2.79 NC Interval (ms): 155 AR Interval (ms): 240 VA Conduction: Mode Switch Events: 1 % of time: <0.1 -PRIMER BOXER: <0.1% AP-PRIMER BOXER: <0.1% -VS: 13.8% AP-VS: 86.1% PRIMER BOXER: Magnetic Rate: 85 LINDA: 65 LEAH: Current [...] Kailey Pruitt RN 10/23/2014 15:22 [facility] - 12/2013 12:00 AM PSTAssociated Order(s): ECG [...] W | | | | | | [place], | | | | | | [place] [address] | | | | | | [phone] | | | | | | | [...] 23, 2014 : | | | 1960 Tar Worker: Kailey Pruitt RN Device Etch Operator Semiconductor Wafers: | | | Medtronic Sense (mV) Impedance (?) Capture (V) Capture (ms) A | | | Lead 2.80-4.00 407 1.500 0.09 RV Lead 22.40-31.36 519 2.000 0.09 | | | LV Lead Battery Impedance (?): 658 Battery Voltage (V): 2.79 | | | NC Interval (ms): 155 AR Interval (ms): 240 VA Conduction: Mode | | | Switch Events: 1 % of time: <0.1 -PRIMER BOXER: <0.1% AP-PRIMER BOXER: <0.1% -VS: | | | 13.8% AP-VS: 86.1% PRIMER BOXER: Magnetic Rate: 85 LINDA: 65 LEAH: Current [...] | | Date: October 23, 2014DOB: 1960 Tar Worker: Ly Saulvice Etch Operator Semiconductor Wafers: | | Medtronic Sense (mV) Impedance (?) Capture (V) Capture (ms) A Lead 2.80-4.00 407 1.500 | | 0.09 RV Lead 22.40-31.36 519 2.000 0.09 LV Lead Battery Impedance (?): 658 Battery | | Voltage (V): 2.79 NC Interval (ms): 155 AR Interval (ms): 240 VA Conduction: Mode | | Switch Events: 1 % of time: <0.1 -PRIMER BOXER: <0.1% AP-PRIMER BOXER: <0.1% -VS: 13.8% AP-VS: 86.1% PRIMER BOXER: | | Magnetic Rate: 85 LINDA: 65 [...] of unspecified type | | of vessel, [place] or graft | + + | Other chest pain | + + | Chest pain Chest pain, unspecified | + + | Coronary artery disease Coronary atherosclerosis of unspecified type of vessel, | | [place] or graft | + + | Pacemaker [...]
--- OUTSIDE RECORDS SUMMARY | ~2020-06-15 | XMS | Encounter Summary ---
Demographics + + + | Address | [address] | | | [place] [address] | + + + | Home Phone [...] Providers + +------+ + | Care Sap Sd Analyst Name | Role | Phone | + +------+ + | Kirk French MD | PCP | | + +------+ + Encounter Details +--------+ + + + + | Date | Type | Department | Care Team | Description | +--------+ + + + + | 01/18/ | Hospital | [facility] | Conversion | Diagnosis unknown | | 2017 | Encounter | CONVERSION DE[address] | Transaction, | | | | | [address] | Provider Unknown | | | | | [place], [place] | [phone] | | | | | [address] | | | | | | [phone] | | | +--------+ + + + [...] + + + +---------+ + + | [place]-3 Fatty | CAPS, one capsule by [...] | | | | | | [place], | | | | | | [place] [address] | | | | | | [phone] | | | | | | | [...]
--- OUTSIDE RECORDS SUMMARY | ~2020-06-15 | XMS | Encounter Summary ---
Demographics + + + | Address | [address] | | | [place] [address] | + + + | Home Phone [...] Providers + +------+ + | Care Machinist Helper Marine Name | Role | Phone | + [...] | | | | CENTER [address] | [address] | (Primary Dx) | | | | [place], [place] | [place], [place] | | | | | [address] | [address] | | | | | [phone] | | | +--------+ + + + [...] Hart MD - 06/21/2018Please follow-up with the [facility]. Return for dizziness, chest pain, shortness of [...] + + +---------+ + + | [place]-3 Fatty | CAPS, one capsule by | [...] might be d ifferent from the original. [facility] Moe Sanchez Emergency Department Encounter Note [address] [place] [id number] PCP:Kirk French MD x2500 eMERGENCY dEPARTMENT eNCOUnter [...] Procedure: COLONOSCOPY; Surgeon: Emmanuel Daniel MD; Location: [facility] MEDICAL PROCEDURE UNIT HARDWARE REMOVAL KNEE SURGERY 2003 meniscus-right LAMINECTOMY 1991 L3-4 LUMBAR DISCECTOMY 1991 L3-4 LUMBAR FUSION 01/2011 6 spine fusions neck fusion 08/10/2012 [place] NECK SURGERY PACEMAKER PLACEMENT 06/14/09 SHOULDER SURGERY 03/22/13 SINUS SURGERY 1997 SPINAL FUSION STOMACH SURGERY UPPER GASTROINTESTINAL ENDOSCOPY N/A 12/24/2017 Procedure: EGD; Surgeon: Emmanuel Daniel MD; Location: [facility] MEDICAL PROCEDURE UNIT VASECTOMY CURRENT MEDICATIONS [...] patient that appointment is due [place] Cardiology [facility] Natural Products (OSTEO BI-FLEX/5-LOXIN ADVANCED PO) Take [...] DOSE, CALL 911Disp-100 tablet, R-3 , Normal [place]-3 Fatty Acids (SALMON OIL-1000 PO) CAPS, one capsule by mouth daily twice daily ONE TOUCH DELICA LANCETS [facility] [place] Check glucose as needed for hypoglycemiaDisp-100 each, R-3, N ormal pravastatin (PRAVACHOL) 40 MG tablet take 1 tablet by mouth NIGHTLYDisp-90 tablet, R-3, Nor mal promethazine (PHENERGAN) 25 mg tablet Take 25 mg by mouth every 8 hours as needed.Medicatio n has a BLACK BOX Warning or Severe Contraindications. Consult references such as [employer] for further information. rOPINIrole (REQUIP) 1 mg tablet Take 1 tablet by mouth nightly.R-0, Historical Med UNABLE TO FIND Take 1 tablet by mouth Daily. MARINE-Q6Acdvxkozfk Med UNCODED MEDICATION Diagnosis: Obstructive Sleep Apnea ICD-9: 327.23 Length of Need: 99 MonthsDisp-1 Device, R-0, JbfafD4510 -Nasal Pillows, E2484-Exnbi Mask, A 7030- Full Face Mask, Y5065-Zhxeky Humidifier, T3081-Chplnc Tubing, A9837-Ksunzwxn, S6265-Vs instrap A7039/A703 8-Filters valACYclovir (VALTREX) 1 g [...] deficits noted, no facial assymetry noted. Equal club steward in all extremities EKG Interpretation Interpreted by emergency department physician Rhythm: Atrial paced. Rate: 70 [place]: normal Ectopy: none Conduction: P wave normal, [...] further reassurance. He is encouraged follow-up with log rafter. Follow-up Information PARISA Lomas In 1 day. Specialty: Nurse Practitioner Contact information: [place] [address] Discharge Medication List as of 06/21/2018 13:01 Discharge Instructions Please follow-up with the log rafter. Return for dizziness, chest pain, shortness of br eath. FINAL IMPRESSION 1. Chest pain, unspecified type Acute Portions of this chart may have been created with [employer] voice recognition software. Occasi onal wrong-word or [...] W | | | | | | [place], | | | | | | [place] [address] | | | | | | [phone] | | | | | | | [...] W?MRN: | | | | | | [id number] | | | [id number] | | | his | | | [...] | | | ent/60 | | | [id number] | | | -5586- | | | [...] | | | St. | | | [place] | | | y | | | [...] | | | ext. | | | [address] | | | or go | | [...] | | | M.D. | | | Mobile Lab Technician | | | al | | | [...] | | | | | | [employer] | | | | [...] [address] | [place] | [phone] | | [facility] | | [address] | | | - LABORATORY | | [...] [address] | [place] | [phone] | | [facility] | | [address] | | | - LABORATORY | | [...] | [address] | [place] | [phone] | | [facility] | | [address] | | | - LABORATORY | | [...] | mL/min/1.73m2 | [place] | | | PARAGUAYAN | RATE,ESTIMATED | | MEDICAL | | | | mL/min/1.42g9Oofc than | | CENTER - | | [...] ST. | [address] | [place], [place] | [phone] | | [facility] | | [address] | | | - LABORATORY | | [...] ST. | [address] | [place], [place] | [phone] | | [facility] | | [address] | | | - LABORATORY | | [...] + | [address] | [address] | [place] | [phone] | | [facility] | | [address] | | | - LABORATORY | | [...] MD | | | | | | ([id number]) on 06/22/2018 | | | | | [...]
--- OUTSIDE RECORDS SUMMARY | ~2020-06-15 | XMS | Encounter Summary ---
Demographics + + + | Address | [address] | | | [place] [address] | + + + | Home Phone [...] Providers + +------+ + | Care Machine I Cutter Name | Role | Phone | [...] + + | 01/28/ | Refill | [facility] | Kirk French | Medication Refill | | 2019 | | [facility] | MD Brea [address] | | | | | PRIMARY CARE [address] | [address] | | | | | [address] | [place] [address] | | | | | [place], [place] | [phone] | | | | | [address] | | | | | | [phone] | | | +--------+--------+ + + + [...] | | | | | | [place] [address] | | | | | | [phone] | | | | | | | | +--------+ + + + + documented as of this encounter Visit Diagnoses Not on filedocumented in this encounter"
--- OUTSIDE RECORDS SUMMARY | ~2020-06-15 | XMS | Encounter Summary ---
Demographics + + + | Address | [address] | | | [place] [address] | + + + | Home Phone [...] Providers + +------+ + | Care Superintendent Colliery Name | Role | Phone | + [...] + + | 06/17/ | [facility] | [facility] [place] [facility] Silvia, | Lab Order (due for | | 2015 | | CARDIOLOGY [address] | PARISA [place] [address] | fasting labs prior | | | | [place], | [place], | to appt) | | | | [place] [address] | [place] [address] | | | | | [phone] | [phone] | | | | | | | [...] stated Lab order s were not at [facility]. Faxed order to [facility] in [place]. Spoke to Geri from [facility] and confirmed she received the order. Patient will draw labs on 06/20/16.Electronically sign ed by Shea Metcalf at 06/19/2016 9:04 AM PDTTelephone Encounter - Nereida Lambert - 6 10:02 AM PDTPatient returned Jay's call and was notified of fasting blood work due prior to his follow up on 06-23-16. Patient requested that orders be faxed to [facility] in [place] and he plans to do blood work tomorrow morning. Forwarding to [place] to fax orders. Petty armendariz signed by [...] | Cardiology | Silvai, | | | 2019 | Visit | | PARISA [place] [address] | | | | | | [place], | | | | | | [place] [address] | | | | | | [phone] | | | | | | | | +--------+ + + + + documented as of this encounter Visit Diagnoses + + | Diagnosis | + + | Hyperlipidemia, mixed - Primary Mixed hyperlipidemia | + + documented in this encounter"
--- OUTSIDE RECORDS SUMMARY | ~2020-06-15 | XMS | Encounter Summary ---
Demographics + + + | Address | [address] | | | [place] [address] | + + + | Home Phone [...] Team Providers + +------+ + | Care Belt Glass Sander Name | Role | Phone | [...] 2019 | | GASTROENTEROLOGY | [address] [place], [place] | | | | | [address] [place] | [address] [place], [place] | | | | | [address] [place], [place] | [address] | | | | | [address] | | | | | | [phone] | | | +--------+ + + + [...] Daniel yesterday. We see a referral to [facility] that was submitted e arash this year. [...] were mary guevara on a referral to [facility] and it shouldn't take this long, meanwhile [...] | | | | | | [place] [address] | | | | | | [phone] | | | | | | | | +--------+ + + + + documented as of this encounter Visit Diagnoses + + | Diagnosis | + + | Incontinence of feces, unspecified fecal incontinence type - Primary | + + | Diarrhea, unspecified type | + + documented in this encounter"
--- OUTSIDE RECORDS SUMMARY | ~2020-06-15 | XMS | Encounter Summary ---
Demographics + + + | Address | [address] | | | [place] [address] | + + + | Home Phone [...] Team Providers + +------+ + | Care Comic Artist Name | Role | Phone | [...] 2018 | | GASTROENTEROLOGY | [address] [place], [place] | about prep for | | | | [address] [place] | [address] [place] | procedure) | | | | [address] [place] | [id number] | | | | | [address] | | | | | | [phone] | | | +--------+ + + + [...] Kaylynn Copeland RN - 12/24/2017 8:15 AM PSTLePacketTrap Networks message return ing patient's call. P STTelephone Encounter - Nataly Pratt - 12/23/2017 4:01 PM PSTPatient called to speak [facility] regarding prep for tomorrow's procedure. Please call patient back at home number [phone]. docum ented in this encounter Plan of [...] | | | | | | [place] [address] | | | | | | [phone] | | | | | | | | +--------+ + + + + documented as of this encounter Visit Diagnoses Not on filedocumented in this encounter"
--- OUTSIDE RECORDS SUMMARY | ~2020-06-15 | XMS | Encounter Summary ---
Demographics + + + | Address | [address] | | | [place] [address] | + + + | Home Phone [...] Team Providers + +------+ + | Care Weight Calculator Name | Role | Phone | + [...] | Ascending | Silvia, | [address] | | | | | aortic | PARISA [place] | [place], | | | | | aneurysm | [address] | [place] | | | | | ([facility]) | [place] | [address] | | | | | Procedures | [place], | Phone: | | | | | ECHO | [place] | [phone] | | | | | Complete | [address] | Fax: | | | | | | Phone: | [phone] | | | | | | [phone] | | | | | | | Fax: | | | | | | | [phone] | | +--------+--------+ + + + + [...] | MD [address] | [address] | | | | | hypertension | [address] | [place], | | | | | Sick sinus | [address] | [place] | | | | | syndrome | [place]STOPH DIN[place] | [address] | | | | | (HCC) | [address] | Phone: | | | | | Ventricular | Phone: | [phone] | | | | | premature | [phone] | Fax: | | | | | depolarizati | Fax: | [phone] | | | | | on | [phone] | | | | | | Tachycardia, | | | | | | | unspecified | | | | | | | | | | | | | | Atherosclero | | | | | | | tic heart | | | | | | | disease of | | | | | | | assiniboine and sioux | | | | | | | [...] + + | 01/01/ | Office | [facility] | [place], | Ascending thoracic | | 2020 | Visit | CARDIOLOGY [address] | PARISA [place] [address] | aortic aneurysm | | | | [place], | [place], | (HCC) (Primary Dx); | | | | [place] [address] | [place] [address] | Coronary artery | | | | [phone] | [phone] | disease involving | | | | | | assiniboine and sioux coronary | | | | | | artery of assiniboine and sioux | | | | | | [...] encounter Patient Instructions Patient Instructions Vidhi Gillespie, Metal Smelter - 01/01/2020 7:30 AM PST1. Esau delmie [...] of critical coronary artery disea se involving assiniboine and sioux coronary artery of assiniboine and sioux heart without angina pectoris, essential hyper tension, [...] for weight loss, he was defer to [facility], per [facility] to have some sort of a patient [...] Preventative health care Coronary artery disease involving assiniboine and sioux coronary artery of assiniboine and sioux heart without angina pectoris Cannabis abuse, [...] ONE TABLET UNDER THE TONGUE EVERY 5 IN NUTES NEEDED FOR CHEST PAIN 250 tablet 0 nortriptyline (PAMELOR) 25 mg capsule Take 25 mg by mouth. Carib[place]-3 Fatty Acids (SALMON OIL-1000 PO) CAPS, one capsule by mouth daily twice daily ondansetron (ZOFRAN ODT) 4 mg disintegrating tablet Take 4 mg by mouth every 8 hours as needed for Nausea. ondansetron (ZOFRAN) 4 mg tablet Take 4 mg by mouth. ONE TOUCH DELICA LANCETS [facility] [...] was found Confirmed by SYDNI SINGLETARY MD ([id number]) on 06/06/2019 3:43:10 PM LAB RESULTS reviewed during visit today primarily from [facility]: LIPID Lab Results Component Value Date CHOL [...] BNP 48 06/02/2019 I reviewed records from [facility] for office visit on 06/06/2019 wh ich is summarized in the HPI. RESULTS- I reviewed reports from [facility]: No results found. Above data and testing is reviewed this visit; testing below is historical data unless othe rwise specified. ASSESSMENT: 1. Non-critical Coronary artery disease involving assiniboine and sioux coronary artery of assiniboine and sioux heart wi thout angina pectoris: A.Normal exercise [...] symptoms; no limitations of activities of the [place] [employer] functional class. Heart failure [...] performed by Dr Juan Diego Gambino at [facility] on 01/30/2013.Patient had spontaneous PVC'sfr om [...] to go back in 3 days to [place] for an attempt of ablation under general [...] advised to having his MRI done in [place] at [facility] which has a repeat MRI protocol for such situations. Patient also will need echocardiogram for al s next appointment to evaluate his ascending [...] of presyncope 05/28/10 [facility], thought to have vasovagal symptoms. [...] advised to having his MRI done in [place] at [facility] which has a repeat MRI protocol for such situations. Patient also will need echocardiogram for his next appointmen t to evaluate his ascending aorta Vidhi Clemente, Metal Smelter am acting as a scribe on behalf of, and in the prese nce of PARISA Lomas. - Vidhi Gillespie, Metal Smelter 01/01/2020 5:29 PM Janeen Clemente ARNP, personally performed the services described in this documentati on, as scribed in my presence and it is both accurate and complete. -PARISA Lomas 01/01/2020 Portions of this chart may have been created with [employer] voice recognition software. Occasi onal wrong-word or [...] W | | | | | | [place], | | | | | | [place] [address] | | | | | | [phone] | | | | | | | [...] cm/s | [facility] | | | eym | | | | | + +--------+ [...] | | | | | | n Mayes | | | | | + +--------+ [...] + + | Coronary artery disease involving assiniboine and sioux coronary artery of assiniboine and sioux heart without | | angina pectoris [...]
--- OUTSIDE RECORDS SUMMARY | ~2020-06-15 | XMS | Encounter Summary ---
Demographics + + + | Address | [address] | | | [place] [address] | + + + | Home Phone [...] Team Providers + +------+ + | Care Nailhead Setter Name | Role | Phone | [...] + + | 05/30/ | Telephone | [facility] | Kirk French | Medication Reaction | | 2019 | | [facility] | MD Brea [address] | | | | | PRIMARY CARE [address] | | | | | [address] | [place] [address] | | | | | [place], [place] | [phone] | | | | | [address] | | | | | | [phone] | | | +--------+ + + + [...] reaction to Lyrica. Please call him at . If this is a symptom based call, was patient offered triage? Not Applicable If this is a symptom based call and you were unable to immediately transfer the call to a lorraine bellamy trapeze performer was caller made aware that if at [...] | | | | | | [place] [address] | | | | | | [phone] | | | | | | | | +--------+ + + + + documented as of this encounter Visit Diagnoses Not on filedocumented in this encounter"
--- OUTSIDE RECORDS SUMMARY | ~2020-06-15 | XMS | Encounter Summary ---
Demographics + + + | Address | [address] [place] [address] [place] | | | [place] [address] | + + + | Home Phone [...] [place] | | | | | [address] | | + + + + + Care Team Providers + +------+ + | Care Financial Processing Clerk Name | Role | Phone [...] 2019 | | Center at [facility] [address] | Gastroenterology | Gastroenterology | | | | [address] [facility] | | | | | | for Health and | | | | | | [address], [address] | | | | | | [place], [place] | | | | | | [address] | | | | | | [phone] | | | +--------+ + + + [...]
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
--- OUTSIDE RECORDS SUMMARY | ~2020-06-15 | XMS | Encounter Summary ---
Demographics + + + | Address | [address] [place] [address] [address] | | | [place] [address] | + + + | Home Phone | | + + + | Preferred Language | Unknown | + + + | Marital Status | | + + + | Christianity Affiliation | Unknown | + + + | Race | White | + + + | Ethnic Group | Not or | + + + Author + + + | Author | [facility] | + + + | Organization | [facility] | + + + | Address | Unknown | + + + | Phone | Unavailable | + + + Support + + + + + | Name | Relationship | Address | Phone | + + + + + | Rachel Valencia | [address]IE[address] | [place] | | | | | [address] | | + + + + + Care Team Providers + +------+ + | Care Scrubber Operator Name | Role | Phone | + +------+ + | Darion Holden DO | PCP | | + +------+ + Encounter Details +--------+ + + + + | Date | Type | Department | Care Team | Description | +--------+ + + + + | 01/22/ | Transcribe | [facility] | Transcribe | | | 2020 | Orders | [facility] [address] | Encounter, Provider, | | | | | [address] [place] [facility] | [address] | | | | | [facility], | [place] [address] | | | | | [address] | | | | | | [place], [place] | | | | | | [address] | | | | | | [phone] | | | +--------+ + + + [...]
--- OUTSIDE RECORDS SUMMARY | ~2020-06-15 | XMS | Encounter Summary ---
Demographics + + + | Address | [address] | | | [place] [address] | + + + | Home Phone [...] Providers + +------+ + | Care Vp Of Technology Name | Role | Phone | [...] | Palpitations | [address] | | | | | Procedures | [address] | [address] [place] | | | | | ECHO | [place], | [place], [place] | | | | | Complete | [place] [address] | [address] | | | | | | Phone: | Phone: | | | | | | [phone] | [phone] | | | | | | Fax: | Fax: | | | | | | [phone] | [phone] | +--------+--------+ + + + + Reason [...] + + | 12/21/ | Office | [facility] | Daljit Singletary, | Palpitations | | 2012 | Visit | CARDIOLOGY [address] | (Primary Dx); PVC | | | | [address] [place], | [place], | (premature | | | | [place] [address] | [place] [address] | ventricular | | | | [phone] | [phone] | contraction) | | | | | [...] present himself to the emergency department at [facility] in [place], [place]. Today, patient is apprehensive of the [...] tablet Take 1,000 mg by mouth Daily. [place]-3 Fatty Acids (SALMON OIL-1000 PO) CAPS, one [...] tablet Take 1,000 mg by mouth Daily. [place]-3 Fatty Acids (SALMON OIL-1000 PO) CAPS, one [...] Gay Date: December 21, 2012 : 1960 [address] Traffic Control Technician: PARISA Velazquez Device Attendant Honor Bar: Medtronic Sense (mV) Impedance (?) Capture (V) Capture (ms) A Lead 4-5.6 423 1.5 0.09 RV Lead >31.36 539 2.0 0.09 LV Lead Battery Impedance (?): 301 Battery Voltage (V): 2.8 HI Interval (ms): 140 AR Interval (ms): 210 VA Conduction: Mode Switch Events: N/A % of time: -RUG CUTTER HELPER: 0.6 AP-RUG CUTTER HELPER: 1.3 -VS: 23.9 AP-VS: 74.2 RUG CUTTER HELPER: Magnetic Rate: 85 LINDA: 65 LEAH: Current [...] himself to the emerge ncy department at [facility] in [place], [place]. EKG showed normal sinus rhythm with [...] I will d iscuss this option with account specialist in [place]. 7. Followup in 2-4 weeks. Portions of this report were transcribed using voice recognition software. Every effort wa s made to ensure accuracy; however, inadvertent computerized parcel post clerk errors may be pre sent. documented in [...] [address] | | | | | | [place], | | | | | | [place] [address] | | | | | | [phone] | | | | | | | | +--------+ + + + + documented as of this encounter Results ECHO Complete (12/30/2012 4:08 PM PST) + + | Specimen | + + | | + + + + + | Narrative | Performed At | + + + | [facility] | [place] | | Department [address] | [facility] | | [ rep ct [address]] [ rep ct [facility] | [facility] | | [facility]] Signed | - IMAGING | | | | | Patient Name: MOE GAY | | | Physician: MIGUELINA : 1960 Age: 52 Sex: M Unit | | | #: [id number] Exam Date: 12/30/12 [place]: | | | [facility] [place] #: [id number] Page: | | | %(RAD)RES..mtdd.print.filter("pg") of %(RAD) | | | RES..mtdd.print.filter("tpg") | | | | | | Accession Number: [id number] | | | E C H O C A R D I O G R A P H Y R E P O R T | | | HEIGHT: 76" WEIGHT: 270# | | | KNOWLEDGE MANAGEMENT ADVISOR: JAMEEL REFERRING DR: TIMMY READING DR: | [...] | | | Transcribed Date/Time: 12/30/2012 16:34 Beck Operator: | | | <<Signature on File>> | | | Daljit | | | MD [employer] [facility] FASE01/02/13 0955 <Electronically signed by | | | Daljit Singletary MD, [facility], FACP, FASE, FASNC> Shaistawong | | | MD CLEOPATRA Singletary 12/30/12 1608 Beck Operator: Jessica | | | Opcdgrfawepgh34/08/13 1634 Daljit Singletary MD FACC | | | FASE | | + + + + + + + + | Performing | Address | City/State/Zipcode | Phone Number | | Organization | | | | + + + + + | [facility] | [address] | [place] | [phone] | | [facility] | | [address] | | | - IMAGING | | | | + + + + + documented in this encounter Visit Diagnoses + + | Diagnosis | + + | Palpitations - Primary | + + | PVC (premature ventricular contraction) Other premature beats | + + documented in this encounter
--- OUTSIDE RECORDS SUMMARY | ~2020-06-15 | XMS | Encounter Summary ---
Demographics + + + | Address | [address] | | | [place] [address] | + + + | Home Phone [...] Team Providers + +------+ + | Care Activity Director Name | Role | Phone | [...] + + | 06/25/ | Office | [facility] | Jeffrey, | SINUS BRADYCARDIA | | 2013 | Visit | CARDIOLOGY [address] | [place] [address] | (Primary Dx); | | | | [place], | [place], | Symptomatic PVCs; | | | | [place] [id number] | [place] [id number] | Coronary artery | | | | [phone] | [phone] | disease; | | | | | [...] : 1960: AGE: 54 y.o. PRIMARY CARE: Mcihael Amanda DO OUTPATIENT FOLLOW UP VISIT Date [...] time, he was admitted over observation at [facility] for a chest pain. Aortogram revealed an [...] needed for Chest pain. 25 tablet 12 [place]-3 Fatty Acids (SALMON OIL-1000 PO) CAPS, [...] HGBEX 16.1 01/25/2014 I reviewed records from [facility] for emergency department visit o n 05/26/2014 [...] yard. He is in class I-II of [place] Heart Association funct ional class. There are [...] to go back in 3 days to [place] for an attempt of ablation under general [...] I-II of [place] Heart Association functional class. There are no [...] made to ensure accuracy; however, inadvertent computerized cnc maintenance technician errors may be pre sent. Electronically signed [...] | | | | | | [place] [id number] | | | | | | [phone] | | | | | | | | +--------+ + + + + documented as of this encounter Visit Diagnoses + + | Diagnosis | + + | SINUS BRADYCARDIA - Primary Sinoatrial node dysfunction | + + | Symptomatic PVCs Other premature beats | + + | Coronary artery disease Coronary atherosclerosis of unspecified type of vessel, | | assiniboine and gros ventre tribes or graft | + + | Hypertension Unspecified essential hypertension | + + | Syncope Syncope and collapse | + + | Hyperlipidemia Other and unspecified hyperlipidemia | + + documented in this encounter
--- OUTSIDE RECORDS SUMMARY | ~2020-06-15 | XMS | Encounter Summary ---
Demographics + + + | Address | [address] | | | [place] [address] | + + + | Home Phone [...] Providers + +------+ + | Care Title Curator Name | Role | Phone | + +------+ + | Kirk French MD | PCP | | + +------+ + Encounter Details +--------+---------+ + + + | Date | Type | Department | Care Team | Description | +--------+---------+ + + + | 01/05/ | Surgery | [facility] | Emmanuel Daniel MD | EGD | | 2019 | | MED CTR MP INTRA OP | [address], [place] | | | | | [address] | [address] [place], [place] | | | | | [place], [place] | [address] | | | | | [address] | | | | | | [phone] | | | +--------+---------+ + + + [...] for a few hours. Date Last Reviewed: 09/22/201619997347-1027 [employer] [place] [address]. All righ ts reserved. This information is [...] vomiting, or vomiting blood Date Last Reviewed: 05/22/201619995908-6548 [employer] [address] [place] [address]. All righ ts reserved. This information is [...] You can't be awakened Date Last Reviewed: 09/08/201619991373-6719 [employer] [address] [place] [address], [place] [address]. All righ ts reserved. This information is [...] + + + +---------+ + + | [place]-3 Fatty | CAPS, one capsule by | [...] of diarrhea since serving in the in [facility]. His last episodes of diarrhea started [...] inflammatory bowel disease. CT scan done through [facility] November s howed mild diverticulosis [...] Endoscopy Patient: Moe Sanchez : 1960 Acct: [id number] Exam Date: December Doctor: Emmanuel Daniel MD [...] If unable to reach your physician, call [facility] Emergency Department at [address] Your [...] Exams Patient: Moe Sanchez : 1960 Acct: [id number] Exam Date: December Doctor: Emmanuel Daniel MD [...] If unable to reach your physician, call [facility] Emergency Department at [address] Your [...] + + + + | 12/09/ | Office | Cardiology | [place], | | | 2019 | Visit | | [place] [address] | | | | | | [place], | | | | | | [place] [address] | | | | | | [phone] | | | | | | | [...] [address], | REFERENCE LAB | | [place], [place] [id number] Access Specialist: Miguel Galarza MD, Phone: | [facility] | | [phone] | | + + + + + + + + | Performing | Address | City/State/Zipcode | Phone Number | | Organization | | | | + + + + + | REFERENCE LAB | [address] | [place], [place] | [phone] | | [facility] | [facility] | [address] | | + + + + + [...] | REFERENCE LAB | | [place] [id number] Access Specialist: Miguel Galarza MD, Phone: | [facility] | | [phone] | | + + + + + + + + | Performing | Address | City/State/Zipcode | Phone Number | | Organization | | | | + + + + + | REFERENCE LAB | [address] | [place] | [phone] | | [facility] | [place] [facility] | [address] | | + + + + + [...] [address] | [address] | [place] | [phone] | | [facility] | | [address] | | | - LABORATORY | | [...] [address] | [place] | [phone] | | [facility] | | [address] | | | - LABORATORY | | [...] [address] | [place] | [phone] | | [facility] | | [address] | | | - LABORATORY | | [...] + | [facility] | [address] | [place] | [phone] | | [facility] | | [address] | | | - LABORATORY | | [...] [address] | [place] | [phone] | | [facility] | | [address] | | | - LABORATORY | | [...] [address] | [place] | [phone] | | [facility] | | [address] | | | - LABORATORY | | | | + + + + + EGD (01/05/2019 8:36 AM PST) + + | Specimen | + + | | + + + + -+ | Narrative | Performed At | + + -+ | | [facility] | | GastroenterologyPatient Name: Moe Venegas Date: | PROVATION | | 01/05/2019 8:36 AMMRN: [id number] #: [id number] of : | | | 9Admit Type: AmbulatoryAge: 58Room: [facility] 01Gender: MaleNote | | | Status: FinalizedAttending MD: Emmanuel Daniel , MDProcedure: | | | Upper GI endoscopyIndications: Diarrhea, Weight | | | lossProviders: Emmanuel Daniel MD, Heidi Akinsfield, | | | RN, Kim Hicks, Resource Recovery Engineer, | | | Jarett Barakat MD (Anesthesia [...] physician, the nurse, the anesthesiologist and the exercise equipment repair technician | | | in the [...] | | Imaging was performed using the [employer] | | | Endoscopy (FICE) [...] Scope In: 8:43:57 AMScope Out: 8:49:[address] [facility]. | | | [facility], [address] [place] [address] | | | [phone] | | |Recommendation: | | | - [...] |Scope Out: 8:49:50 AM | | | [facility]. [facility], [address] [place] [address] | | | [address] | | + + -+ + +---------+ [...] | PROVATION | | 01/05/2019 8:36 AMMRN: [id number] #: [id number] of : | | | 9Admit Type: AmbulatoryAge: 58Room: [facility] 01Gender: MaleNote | | | Status: FinalizedAttending MD: Emmanuel Daniel [facility]: | | | ColonoscopyIndications: Clinically significant diarrhea of | | | unexplained origin, Weight lossProviders: | | | Emmanuel Daniel MD, Heidi An RN, [place] | | | Fiorella Hicks, Resource Recovery Engineer, Jarett Alejo | | | MD Roshni [...] | | | the anesthesiologist and the exercise equipment repair technician in the endoscopy suite. | [...] AMScope Out: | | | 9:06:28 AM [facility], [address], | | | [place] [address] | | | - Discharge patient to [...] |Scope Out: 9:06:28 AM | | | [facility], [address], [place], [place] | | | [address] | | + + -+ + +---------+ [...] | | | (atherosclerotic heart disease of modoc coronary artery without | | | angina [...] chronic or | | | microscopic colitis. BES:[facility]:C3NR GROSS DESCRIPTION: A. The | | | specimen, labeled "Marcellus, duodenal biopsy" is received in formalin | | | and consists of seven 0.1-0.5 cm lin fragments. Entirely submitted in | | | (A1). B. The specimen, labeled "Marcellus, right colon" is received | | | in formalin and consists of six 0.2-0.3 cm lin fragments. Entirely | | | submitted in (B1). C. The specimen, labeled "Marcellus, left colon" | | | is received in formalin and consists of six 0.2-0.3 cm lin-pink | | | fragments. Entirely submitted in (C1). am:AMB:rds PERFORMING | | | LABORATORY: The technical component was performed by [facility] | | | [place], [address] [place] [address] (Powertrain Engineer: | | | Kailey Stafford MD; CLIA# [id number]). Professional interpretation was | | | performed by [facility], [facility] | | | [place] [address] (Powertrain Engineer: [place] | Shanique Dao M.D.; CLIA#: [id number]). Diagnostician: Ishaan Fitzpatrick | | | Sylwia [...] | | | Starting [facility] 01/05/19 at 0924, | | | For [...] PRN, Nausea, Vomiting, Starting | | | [facility] 01/05/19 at 0924, | | | Recovery/Phase [...]
--- OUTSIDE RECORDS SUMMARY | ~2020-06-15 | XMS | Encounter Summary ---
Demographics + + + | Address | [address] | | | [place] [address] | + + + | Home Phone [...] Providers + +------+ + | Care Geothermal Plant Manager Name | Role | Phone [...] [address] | | | | | [place], | [place], | | | | | [place] [address] | [place] [address] | | | | | [phone] | [phone] | | | | | | | [...] | | | | | | [place] [address] | | | | | | [phone] | | | | | | | [...]
--- OUTSIDE RECORDS SUMMARY | ~2020-06-15 | XMS | Encounter Summary ---
Demographics + + + | Address | [address] | | | [place] [address] | + + + | Home Phone [...] Team Providers + +------+ + | Care Septic Tank Installer Name | Role | Phone | + +------+ + | Kirk French MD | PCP | | + +------+ + Reason for Visit +--------+--------+ + | Reason | Onset | Comments | | | Date | | +--------+--------+ + | Other | 01/30/ | medication question | | | 2020 | | +--------+--------+ + Encounter Details +--------+ + + + + | Date | Type | Department | Care Team | Description | +--------+ + + + + | 01/30/ | Telephone | [facility] | [place], | Other (medication | | 2019 | | CARDIOLOGY [address] | [place] [address] | question) | | | | [place], | [place], | | | | | [place] [address] | [place] [address] | | | | | [phone] | [phone] | | | | | | | [...] Telephone Encounter - Mariana Valentine RN - 02/02/2020 2:36 PM PDTPatient notified, [facility], leg swelling is gone ..........................................El radha Valentine RN on 02/02/20 at 2:37 PM elephone [facility] Reynaga RN - 02/01/2020 12:43 PM PDTLeft message at home number for arian ent to return my call............................................Keisha Farnsworth RN, on 02/01/20 at 12:43 PM elephone Janeen Sanon ARNP - 02/01/2020 11:19 AM PDTAlso can you have him try Furosemid e 20 mg twice a day (6 hours apart) for 3 days only and see if it helps with the leg swellin g. Also have him an extra bananas for those 3 days Electronically signed by: PARISA Lomas 02/01/2020 11:23 AM eleKeisha Armijo RN - 01/31/2020 4:20 PM PDTPatient left voicemail saying his " legs have doubled in size" today and the physician who prescribed Lyrica at [facility] in [place] suggested he get BLE ultrasounds to check for DVT's. He would like to get ultr asounds done here at [facility]. I returned patients call and informed him of Janeen's last message on this note, and patien t states he wants to stop taking Lyrica because of this side effect. He states he is still h aving foot pain because of the edema. I advised patient to follow up today with the [place] [facility] to notify them and obtain the ul trasound orders and complete them here at [facility]. He will notify us of any worsening sym ptoms. He has decided to discontinue Lyrica due to the side effect of edema................. ...........................Keisha Farnsworth RN, on 01/31/20 at 4:27 PM elephone Janeen Red ARNP - 01/31/2020 3:30 PM PDTPeripheral edema is a potential si de effect of Lyrical. He should watch his sodium intake anyways. It's not a dangerous side e ffect, but it is a side effect. Electronically signed by: PARISA Lomas 01/31/2020 3:34 PM elephone Keisha Adams RN - 01/31/2020 1:58 PM PDTPatient notified. He states that he started experiencing bilateral lower extremity edema when he started lyrica, and his legs c ontinue to swell despite compression stockings. He would like Janeen to be aware. Will route to Janeen for review...........................................Keisha dyer RN, on 01/31/20 at 1:59 PM elephone Janeen Red ARNP - 01/31/2020 1:35 PM PDTIt should not interfere with any o f his cardiac medications. Electronically signed by: PARISA Lomas 01/31/2020 1:35 PM elephone Darlene Gabriel RN - 01/31/2020 12:23 PM PDTFrousmane called and left a message on my voi cemail. He states that he sees a pain specialist in [place] and they would like him to star t on Lyrica/pregabalin 75mg. He would like to know if this is ok for him to do along with h is cardiac medications. I will consult Janeen and then let him know ....................... ....................Darlene Tirado RN, on 01/31/20 at 12:25 PM documented in this encounter Plan of Treatment [...] | | | | | | [place] [address] | | | | | | [phone] | | | | | | | | +--------+ + + + + documented as of this encounter Visit Diagnoses Not on filedocumented in this encounter
--- OUTSIDE RECORDS SUMMARY | ~2020-06-15 | XMS | Encounter Summary ---
Demographics + + + | Address | [address] | | | [place] [address] | + + + | Home Phone [...] Providers + +------+ + | Care Procurement Internship Name | Role | Phone | + +------+ + | Michael Amanda DO | PCP | | + +------+ + Encounter Details +--------+ + + + + | Date | Type | Department | Care Team | Description | +--------+ + + + + | 07/30/ | Abstract | [facility] | Michael Amanda, | | | 2013 | | MEDICINE [place] | DO [address] | | | | | [address] | [place] | | | | | [place] | [address] | | | | | [address] | | | | | | [phone] | | | +--------+ + + + [...] | | | | | | [place] [address] | | | | | | [phone] | | | | | | | [...] | EXTERNAL LAB: [facility] | Routin | 07/26/2014 | | Results for this | | | e | | | procedure are in the | | | | | | results section. | + +--------+ + + + | EXTERNAL LAB: [facility] | Routin | 07/26/2014 | | Results [...] + + + + | Hemoglobin | 16.8 (A) | 13.7 - 16.7 [...] [facility] | + + External Lab: NKECHI (07/26/2014) + +-------+ + + + | [...] + | [facility] | [address] | [place], [place] | [phone] | | [facility] | | [address] | | | - LABORATORY | | | | + + + + + | [facility] | [address] | [place] | | | [facility] | | [address] [place] [address] | | | - LABORATORY | | [...] | | | | | | | [place], | | | | | | External [...]
--- OUTSIDE RECORDS SUMMARY | ~2020-06-15 | XMS | Encounter Summary ---
Demographics + + + | Address | [address] | | | [place] [address] | + + + | Home Phone [...] Providers + +------+ + | Care Oracle Hrms Consultant Name | Role | Phone | + +------+ + | Kirk French MD | PCP | | + +------+ + Encounter Details +--------+ + + + + | Date | Type | Department | Care Team | Description | +--------+ + + + + | 12/24/ | Orders Only | [facility] | Conversion | | | 2018 | | [facility] | Transaction, | | | | | PRIMARY CARE [address] | Provider Unknown | | | | | [place] | [phone] | | | | | [place] | | | | | | [address] | | | | | | [phone] | | | +--------+ + + + [...] | | | | | | [place] [address] | | | | | | [phone] | | | | | | | [...] LAB | | [facility] | | + + + [...]
--- OUTSIDE RECORDS SUMMARY | ~2020-06-15 | XMS | Encounter Summary ---
Demographics + + + | Address | [address] | | | [place] [address] | + + + | Home Phone [...] Team Providers + +------+ + | Care People Greeter Name | Role | Phone | [...] + | 12/29/ | Office | [facility] | [place], | Ascending thoracic | | 2017 | Visit | CARDIOLOGY [address] | [address] | aortic aneurysm | | | | [place], | [place], | ([facility]) (Primary Dx); | | | | [place] [address] | [place] [address] | Coronary artery | | | | [phone] | [phone] | disease involving | | | | | | apache coronary | | | | | | artery of apache | | | | | | heart [...] of non-critical coronary artery d isease involving apache coronary artery of apache heart without angina pectoris, essential h ypertension, [...] time, he went to the ER in [facility] with chest pain at the end [...] Preventative health care Coronary artery disease involving apache coronary artery of apache heart without angina pectoris Cannabis abuse, daily [...] by mouth every evening [address] [facility] Natural Products (OSTEO [...] 3RD DOSE, CALL 911 100 tablet 3 [place]-3 Fatty Acids (SALMON OIL-1000 PO) CAPS, one capsule by mouth daily twice daily ONE TOUCH DELICA LANCETS [facility] Check glucose as needed for hypoglycemia 100 [...] was found Confirmed by SYDNI SINGLETARY MD ([id number]) on 06/23/2016 2:08:15 PM LAB RESULTS reviewed [...] He is in class I of the [place] [employer] functional class. On physical examination there are no signs of fl uid overload. 2. Non-critical Coronary artery disease involving apache coronary a rtery of apache heart without angina pectoris: A. Normal exercise [...] ventricular arrhythmia performed by Dr. Gambino at [facility] on 01/30/2013. Patient had spontaneous [...] to go back in 3 days to [place] for an attempt of ablation under general [...] is a normal stable device function. Estimated Cellectisi ng battery longevity is 5 years.. 5. [...] this chart may have been created with [employer] voice recognition software. Occasi onal wrong-word or [...] | | | | | | [place] [address] | | | | | | [phone] | | | | | | | | +--------+ + + + + documented as of this encounter Visit Diagnoses + + | Diagnosis | + + | Ascending thoracic aortic aneurysm (HCC) - Primary Thoracic aneurysm without mention | | of rupture | + + | Coronary artery disease involving apache coronary artery of apache heart without | | angina pectoris | + + | Essential hypertension with goal blood pressure less than 130/80 | + + | Hyperlipidemia, mixed Mixed hyperlipidemia | + + documented in this encounter
--- OUTSIDE RECORDS SUMMARY | ~2020-06-15 | XMS | Encounter Summary ---
Demographics + + + | Address | [address] | | | [place] [address] | + + + | Home Phone [...] Team Providers + +------+ + | Care Condenser Operator Name | Role | Phone | + +------+ + PCP | Unavailable | + +------+ + Encounter Details +--------+ + + + + | Date | Type | Department | Care Team | Description | +--------+ + + + + | 06/03/ | Hospital | [facility] | | | | 2008 | Encounter | MED CTR EMERGENCY | | | | | | [address] | | | | | | [place] | | | | | | [address] | | | | | | [phone] | | | +--------+ + + + [...] | | | | | | [place] [address] | | | | | | [phone] | | | | | | | | +--------+ + + + + documented as of this encounter Visit Diagnoses Not on filedocumented in this encounter"
--- OUTSIDE RECORDS SUMMARY | ~2020-06-15 | XMS | Encounter Summary ---
Demographics + + + | Address | [address] [place] [address] [address] | | | [place] [address] | + + + | Home Phone [...] + | Author | [facility] | + + + | Organization | [facility] | + + + | Address | Unknown | + + + | Phone | Unavailable | + + + Support + + + + + | Name | Relationship | Address | Phone | + + + + + | Rachel Valencia | [address] | [place] | | | | | [address] | | + + + + + Care Team Providers + +------+ + | Care Administrative Executive Name | Role | Phone | [...] | | 2019 | | Center at [facility] [address] | MD [address] | diarrhea; sent to | | | | [address] | [place], [place] | ED) | | | | for Health and | [address] | | | | | [facility], [facility] | [phone] | | | | | [place], [place] | | | | | | [address] | | | | | | [phone] | | | +--------+ + + + [...]
--- OUTSIDE RECORDS SUMMARY | ~2020-06-15 | XMS | Encounter Summary ---
Demographics + + + | Address | [address] | | | [place] [address] | + + + | Home Phone [...] Team Providers + +------+ + | Care Herb Digger Name | Role | Phone | + [...] | | | | [place] | [phone] | | | | | [address] | | | | | | [phone] | | | +--------+ + + + [...] + + + +---------+ + + | [place]-3 Fatty | CAPS, one capsule by | [...] | | | | | | [place] [address] | | | | | | [phone] | | | | | | | [...]
--- OUTSIDE RECORDS SUMMARY | ~2020-06-15 | XMS | Encounter Summary ---
Demographics + + + | Address | [address] | | | [place] [address] | + + + | Home Phone [...] Providers + +------+ + | Care Manager Marketing Communication Name | Role | Phone | + +------+ + | Kirk French MD | PCP | | + +------+ + Encounter Details +--------+ + + + + | Date | Type | Department | Care Team | Description | +--------+ + + + + | 06/19/ | Orders Only | [facility] | Fabrice Hylton, | Abnormal weight | | 2019 | | SYSTEM GENERIC OP | MD [address] | loss; Anxiety | | | | CONVERSION [address] [place], [place] | disorder; Chronic | | | | [address] [place], [place] | [address] | pain syndrome; | | | | [address] | | Obesity; Neuralgia | | | | [phone] | | and neuritis, | | | [...] | 10/30/ | Office | Cardiology | [place]via | | | 2019 | Visit | | PARISA [place] [address] | | | | | | [place], | | | | | | [place] [address] | | | | | | [phone] | | | | | | | [...]
--- OUTSIDE RECORDS SUMMARY | ~2020-06-15 | XMS | Encounter Summary ---
Demographics + + + | Address | [address] | | | [place] [address] | + + + | Home Phone [...] Providers + +------+ + | Care Drum Loader And Unloader Name | Role | Phone | [...] | | [address] | [place] [address] | | | | | [place] | [phone] | | | | | [address] | | | | | | [phone] | | | +--------+ + + + [...] 03/13/2014 10:56 AM FENG Sosa called from [facility] to let Dr. Demarco know that she [...] surgeries. His last MRI was done at [facility]. Whit states the MRI is over 1 [...] | | | | | | [place] [address] | | | | | | [phone] | | | | | | | | +--------+ + + + + documented as of this encounter Visit Diagnoses Not on filedocumented in this encounter"
--- OUTSIDE RECORDS SUMMARY | ~2020-06-15 | XMS | Encounter Summary ---
Demographics + + + | Address | [address] | | | [place] [address] | + + + | Home Phone [...] Providers + +------+ + | Care Marketing Strategist Name | Role | Phone | + [...] | | | | CENTER [address] | [place] | (Primary Dx) | | 07/28/ | | [place] | [address] | | | 2017 | | [address] | | | | | | [phone] | | | +--------+ + + + [...] sent through Care Everywhere.Chest Pain, Non cardiac (Albanian)documented in this encounter Medications at Time [...] + + + +---------+ + + | Canaan-3 Fatty | CAPS, one capsule by | [...] MD - 07/27/2018 10:55 PM PD T [facility] Moe Sanchez Emergency Department Encounter Note [address] [place] [address] PCP:Kirk French MD [phone] CHIEF COMPLAINT: Chief [...] SURGERY ABLATION Bilateral 04/03/2013 x3 APPENDECTOMY 2005 [facility] CARDIAC CATHERIZATION 12/25/13 Left COLONOSCOPY N/A [...] DOSE, CALL 911Disp-100 tablet, R-3 , Normal Canaan-3 Fatty Acids (SALMON OIL-1000 PO) CAPS, one capsule by mouth daily twice daily ONE TOUCH DELICA LANCETS [facility] [place] Check glucose as needed for hypoglycemiaDisp-100 each, R-3, N ormal pravastatin (PRAVACHOL) 40 MG tablet take 1 tablet by mouth NIGHTLYDisp-90 tablet, R-3, Nor mal rOPINIrole (REQUIP) 1 mg tablet Take 1 tablet by mouth nightly.R-0, Historical Med UNABLE TO FIND Take 1 tablet by mouth Daily. MARINE-K5Noggmdmksv Med UNCODED MEDICATION Diagnosis: Obstructive Sleep Apnea ICD-9: 327.23 Length of Need: 99 MonthsDisp-1 Device, R-0, RaflzV5878 -Nasal Pillows, A9968-Tdwhq Mask, A 7030- Full Face Mask, N4789-Ywqvsa Humidifier, Z8198-Bqaptk Tubing, E6319-Oiecshml, A0550-Df instrap A7039/A703 8-Filters valACYclovir (VALTREX) 1 g [...] now present Confirmed by ANGELA MARADIAGA MD ([id number]) on 07/28/2018 6:03:35 AM IMAGING STUDIES (X-Rays [...] were reviewed along with EMS notes and [facility] record s if applicable. (See chart for [...] Internal Medicine Why: As needed Contact information: [facility] LORA RENARD [address] [address] Discharge Medication List as of [...] | | | | | | [place] [address] | | | | | | [phone] | | | | | | | [...] W?MRN: | | | | | | [id number] | | | [id number] | | | his | | | [...] | | | ecarep | | | aslhey.co | | | m/arian | | | ent/60 | | | [id number] | | | -5586- | | | [...] | | | St. | | | Pandora | | | y | | | [...] | | | ext. | | | [address] | | | or go | | [...] | | | M.D. | | | Drafter Electromechanical | | | al | | | [...] | | | [place] | | | [place] | | | City, | | | [...] | | | | | | [employer] | | | | | [...] + + | Performing | Address | City/State[facility] | Phone Number | | Organization | | | | + + + + + | [facility] | [address] | [place] | [phone] | | [facility] | | [address] | | | - LABORATORY | | [...] mL/min/1.73m2 | [facility] | | | [facility]ERO[place]IAN | RATE,ESTIMATED | | MEDICAL | | | | mL/min/1.30e3Aydf than | | CENTER - | | [...] | bulin Ratio | | | [facility] | | | | | | MEDICAL [...] [address] | [place] | [phone] | | [facility] | | [address] | | | - LABORATORY | | [...] + | [facility] | [address] | [place] | [phone] | | [facility] | | [address] | | | - LABORATORY | | [...] | | | | ANGELA MARADIAGA MD ([id number]) | | | | | | on [...]
--- OUTSIDE RECORDS SUMMARY | ~2020-06-15 | XMS | Encounter Summary ---
Demographics + + + | Address | [address] | | | [place] [address] | + + + | Home Phone [...] Team Providers + +------+ + | Care English Language Learner Tutor Name | Role | Phone | + [...] | unspecified | MD Jacek | [address] | | | | | type | [address] | [place], | | | | | Unintentiona | [place] | [place] [address] | | | | | l weight | [place], [place] | Phone: | | | | | loss | [address] | [phone] | | | | | Procedures | Phone: | Fax: | | | | | [facility] | [phone] | [phone] | | | | | INTRALUMINAL | Fax: | | | | | | | [phone] | | | | | | ESOPHAGUS-IL | | | | | | | EUM W/I&R | | | + + + + + + + Encounter Details +--------+ + + + + | Date | Type | Department | Care Team | Description | +--------+ + + + + | 11/10/ | Orders Only | [facility] | Darin Gandhi | Diarrhea, | | 2019 | | GASTROENTEROLOGY | MD Jacek [address] | unspecified type | | | | [address] [place] | [address] [place] | (Primary Dx); | | | | [address] [place], [place] | [place] [address] | Unintentional weight | | | | [address] | [phone] | loss | | | | [phone] | | | +--------+ + + + [...] W | | | | | | [place], | | | | | | [place] [address] | | | | | | [phone] | | | | | | | [...]
--- OUTSIDE RECORDS SUMMARY | ~2020-06-15 | XMS | Encounter Summary ---
Demographics + + + | Address | [address] | | | [place] [address] | + + + | Home Phone [...] Team Providers + +------+ + | Care Receiving Room Clerk Name | Role | Phone | + +------+ + | Kirk French MD | PCP | | + +------+ + Reason for Visit +--------+--------+ + | Reason | Onset | Comments | | | Date | | +--------+--------+ + | Other | 08/23/ | edema is blood clots | | | 2015 | | +--------+--------+ + Encounter Details +--------+ + + + + | Date | Type | Department | Care Team | Description | +--------+ + + + + | 08/23/ | Telephone | [facility] | Anshumarianatesha Rashadotto, | Other (edema is | | 2015 | | CARDIOLOGY [address] | blood clots) | | | | [place], | [place], | | | | | [place] [address] | [place] [address] | | | | | [phone] | [phone] | | | | | | | [...] Telephone Encounter - Darlene Tirado RN - 08/23/2015 4:47 PM PDTFred called to report t hat he finally went to a doctor and found out that the swelling in his legs was from blood c lots. The put him on lovenox shots and he states that he just can not do them anymore becaus e they hurt. He was advised to not stop those because he can make himself worse. He states that he just wanted to let us know that he is on his way in to the ER right now to get chec ked out. ...........................................Darlene Tirado RN on 08/23/15 at 16:49 documented in this encounter Plan of Treatment [...] | | | | | | [place] [address] | | | | | | [phone] | | | | | | | | +--------+ + + + + documented as of this encounter Visit Diagnoses Not on filedocumented in this encounter"
--- OUTSIDE RECORDS SUMMARY | ~2020-06-15 | XMS | Encounter Summary ---
Demographics + + + | Address | [address] | | | [place] [address] | + + + | Home Phone [...] Team Providers + +------+ + | Care Shovel Log Loader Operator Name | Role | Phone | [...] + + | 12/23/ | Telephone | [facility] | Emmanuel Daniel MD | Other (Needs to know | | 2017 | | GASTROENTEROLOGY | [address], [place] | what he can eat | | | | [address] [place] | [address] [place], [place] | today) | | | | [address] [place] | [address] | | | | | [address] | | | | | | [phone] | | | +--------+ + + + [...] | | | | | | [place] [address] | | | | | | [phone] | | | | | | | | +--------+ + + + + documented as of this encounter Visit Diagnoses Not on filedocumented in this encounter"
--- OUTSIDE RECORDS SUMMARY | ~2020-06-15 | XMS | Encounter Summary ---
Demographics + + + | Address | [address] | | | [place] [address] | + + + | Home Phone [...] + +------+ + | Care Civil Engineering Project Manager Name | Role | Phone [...] + + | 10/01/ | Office | [facility] | Mary Bradshaw | Injury of left foot, | | 2013 | Visit | CARE [address] | Guy Larkin MD | initial encounter | | | | [place] | [address] | (Primary Dx) | | | | [address] | [place] | | | | | [phone] | [address] | | | | | | | [...] 3:17 PM PSTPatient left before visit c ángela, stating he has been here for three and half hours. 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 I provided patient with Dr. Bradley's card so he may contact us for results. Patient's best phone number: [phone] Renetta Lockwood RN Mary [address] [place]ente [...] | | | | | | [place] [address] | | | | | | [phone] | | | | | | | [...] + | MISCELLANEOUS LAB | | | [phone] | + +---------+ + + | MISCELANIOUS LAB | | | [phone] | + +---------+ + + documented in this encounter Visit Diagnoses + + | Diagnosis | + + | Injury of left foot, initial encounter - Primary | + + documented in this encounter
--- OUTSIDE RECORDS SUMMARY | ~2020-06-15 | XMS | Encounter Summary ---
Demographics + + + | Address | [address] | | | [place] [address] | + + + | Home Phone [...] Providers + +------+ + | Care Manager Underwriting Name | Role | Phone | + +------+ + | Kirk French MD | PCP | | + +------+ + Encounter Details +--------+ + + + + | Date | Type | Department | Care Team | Description | +--------+ + + + + | 01/25/ | Hospital | [facility] | Daljit Singletary, | Stable angina | | 2019 | Encounter | MED CTR CV INTRA OP | [address] | pectoris ([facility]) | | | | [address] | [address] [place], | | | | | [place] | [place] [address] | | | | | [address] | [phone] | | | | | [phone] | | | +--------+ + + + [...] as a collagen plugis used on the [place] triny site to close the site, you [...] by your healthcare provider Date Last Reviewed: 09/22/201619995901-8151 [employer]. [address] [place] [address]. All righ ts reserved. This information is [...] + + + +---------+ + + | Weiner-3 Fatty | CAPS, one capsule by | [...] of non-critical coronary artery d isease involving napakiak coronary artery of [place]aki[place] heart without angina pectoris, essential h ypertension, [...] Preventative health care Coronary artery disease involving [place] coronary artery of [place]aki[place] heart without angina pectoris Cannabis abuse, daily [...] 3RD DOSE, CALL 911 100 tablet 3 Weiner-3 Fatty Acids (SALMON OIL-1000 PO) CAPS, one capsule by mouth daily twice daily ondansetron (ZOFRAN ODT) 4 mg disintegrating tablet Take 4 mg by mouth. ONE TOUCH DELICA LANCETS [facility] [...] was found Confirmed by ANGELA MARADIAGA MD ([id number]) on 01/03/2019 8:10:39 PM LAB RESULTS reviewed [...] the HPI. RESULTS- I reviewed reports from : Xr Chest Ap Portable Result Date: 01/02/2019 [...] ASSESSMENT: 1. Non-critical Coronary artery disease involving napakiak coronary artery of [place] heart [facility] angina pectoris: A. Normal exercise [...] Symptoms with moderate exertion of t he [place] [employer] functional class. Heart failure stage [...] ventricular arrhythmia performed by Dr. Gambino at [facility] on 01/30/2013. Patient had spontaneous PVC's [...] go back in 3 days t o [place] for an attempt of ablation under general [...] if he has any further problems Christine, Post Anesthesia Care Unit Nurse am acting as a scribe on behalf of, and in the pres ence of PARISA Lomas. - Christine Rodriguez, Post Anesthesia Care Unit Nurse 01/11/2019 13:46 I, PARISA Lomas, personally performed the services described in this documentati on, as scribed in my presence and it is both accurate and complete. -PARISA Lomas 01/11/2019 Portions of this chart may have been created with [employer] voice recognition software. Occasi onal wrong-word or [...] [address] | | | | | | [place], | | | | | | [place] [address] | | | | | | [phone] | | | | | | | [...] (1960) MEDICAL RECORD NUMBER: | | | [id number] OF PROCEDURE: 01/25/2019 FIRE WATCHMAN: Daljit | | | MD Gemini PROCEDURES [...] Sanchez, (1960) | | OF PROCEDURE: 01/25/2019PRIMARY PARKING LOT ATTENDANT: Daljit Singletary MD PROCEDURES | | PERFORMED:Coronary [...] Aggressive medical management. | | at 9:33[facility] PROVIDER:Kirk French MDFor additional detail [...]
--- OUTSIDE RECORDS SUMMARY | ~2020-06-15 | XMS | Encounter Summary ---
Demographics + + + | Address | [address] | | | [place] [address] | + + + | Home Phone [...] Team Providers + +------+ + | Care Controller Repairer And Tester Name | Role | Phone | [...] | | | | Sinoatrial | Geri, DRY PLASTERER HELPER | [address] | | | | | node | [address] | [place], | | | | | dysfunction | [place] | [place] | | | | | (HCC) | [place], [place] | [address] | | | | | Coronary | [address] | Phone: | | | | | artery | Phone: | [phone] | | | | | disease | [phone] | Fax: | | | | | involving | Fax: | [phone] | | | | | kalispel | [phone] | | | | | | coronary | | | | | | | artery of | | | | | | | [place]al[place]el heart | | | | | | [...] | | | | | | Complete [place] | | | | | | | ECHO HEART | | | | | | | XTHORACIC,[place] | | | | | | | MPLETE W | | | | | | | DOPPLER [place] | | | | | | | [...] | Visit | CARDIOLOGY [address] | DRY PLASTERER HELPER [address] | dysfunction (HCC) | | | | [place], | [place], [place] | with symptomatic | | | | [place] [address] | [address] | bradycardia (Primary | | | | [phone] | | Dx); Coronary | | | | | | artery disease | | | | | | involving [place]el | | | | | | coronary artery of | | | | | | [place] heart without | | | | | [...] Preventative health care Coronary artery disease involving [place] coronary artery without angina pectoris Cannabis abuse, [...] by mouth every evening. 90 tablet 3 [facility] (OSTEO BI-FLEX/5-LOXIN ADVANCED PO) Take [...] 3rd dose, call 911 100 tablet 3 Larkspur-3 Fatty Acids (SALMON OIL-1000 PO) CAPS, one capsule by mouth daily twice daily ONE TOUCH DELICA LANCETS [facility] [place] glucose as needed for hypoglycemia 100 [...] scanned Paceart documentation and device PDF in [employer] for interrogation (with progr amming changes) performed [...] attenuation cannot completely be ruled out. [facility] 12/25/13, shows non critical coronary [...] ventricular arrhythmia performed by Dr. Gambino at [facility] on 01/30/2013. Patient had spontaneous PVCs [...] to go back in 3 days to [place] for an attempt of ablation under general [...] this chart may have been created with [employer] voice recognition software. Occasi onal wrong-word or sound-alike substitutions may have occurred due to the inherent granger itations of voice recognition software. Please read the chart carefully and recognize, using context, where these substitutions have occurred. documented in this encounter Procedure Notes Geri Angel ARNP - 01/01/2016 4:40 PM PSTAssociated Order(s): DEVICE INTERROGATIONProc edure(s): DEVICE INTERROGATIONPre-Procedure Diagnose(s): Pacemaker reprogramming/check; Pres ence of permanent cardiac pacemaker; Sinoatrial node dysfunction (HCC)Formatting of this not e might be different from the original. PATIENT NAME: Moe Sanchez : 1960: AGE: 55 y.o. Device In-office Evaluation Report 12/31/2015 Reason for evaluation: routine Indication for device: ICD-10-CM ICD-9-CM 1. Sinoatrial node dysfunction (HCC) with symptomatic bradycardia I49.5 427.81 ECHO Complet e Device Interrogation 2. Coronary artery disease involving kalispel coronary artery of kalispel heart without angina pectoris I25.10 414.01 ECHO Complete 3. Ascending thoracic aortic aneurysm (HCC) I71.2 441.2 ECHO Complete 4. Essential hypertension I10 401.9 5. Hyperlipidemia, mixed E78.2 272.2 6. Pacemaker reprogramming/check DO NOT DELETE Z45.018 V53.31 Device Interrogation 7. Pacemaker - Medtronic - ADDR01 Adapta - Implanted 06/14/2009 Z95.0 V45.01 Device Interrog ation Patient was seated and device was interrogated (with programming changes made). Device para meters, battery status, percentages pacing and significant arrhythmias were reviewed. Heart rate histograms were assessed for adequate heart rate response and any alerts reviewed. Appr opriate lead impedance testing was performed. Pacing impedances were reviewed for any signif icant changes. Sensing tests were performed by decreasing LRL. Adequacy of pacing thresholds were tested by increasing LRL for each lead and recorded for loss of capture. Final outputs were assessed for adequate safety margins. Summary of findings: No events. Heart rate histogram shows a fair distribution. There is a normal stable device function. Estimated remaining battery longevity is 5 years. Please see the scanned Paceart report and device PDF for further details. Electronically si gned by PARISA Velazquez at 01/01/2016 4:41 PM PSTdocumented in this encounter Plan of [...] | | | | | | [place], | | | | | | [place] [address] | | | | | | [phone] | | | | | | | [...] | | | TRANSTHORAC | | | Juan Diego MICHELLE | | | IC ECHO | [...] [facility]CTOR HUGO | [facility] | | [facility] Room Number SARAH Patient | [facility] | | [id number] Date of Study 06/16/2016 Number | - IMAGING | | Visit Number [id number] | | | Referring Physician JOSE ARMANDO GARCIA Number Date of 1960 | | | An/Syq 13 Nav/C2 Operator LUIS FERNANDO DUARTE Age | | | 56 year(s) Interpreting | | | GURJIT TROY | | | Orchard Pruner SYDNI CAGLE | | | Gender | | | Male Nurse Procedure Type of Study TTE | | | procedure: ECHO Complete. Procedure dateDate: 06/16/2016Start: 10:55 | | | AM Technical Quality: Adequate visualizationStudy Location: Echo | | | LabIndications: CAD HO-CHUNK CORONARY ARTERY 414.01/ I25.10 and | | [...] BARRY Room Number SARAH | | Patient [id number] Date of Study 06/16/2016 Number Visit Number | | [id number] Referring Physician JOSE ARMANDO GARCIA Number | | Date of 1960 An/Syq 13 Nav/C2 Operator LUIS FERNANDO DUARTE Age | | 56 year(s) Interpreting GURJIT TROY | | Orchard Pruner SYDNI CAGLE, | | Gender Male NurseProcedureType of Study TTE | | procedure: ECHO Complete.Procedure dateDate: 06/16/2016Start: 10:55 AMTechnical Quality: | | Adequate visualizationStudy Location: Echo LabIndications: CAD HO-CHUNK CORONARY ARTERY | | 414.01/ I25.10 and [...] [address] | [place] | [phone] | | [facility] | | [address] | | | - IMAGING | | | | + + + + + Device Interrogation (01/01/2016 4:41 PM PST) + + + | Narrative | Performed At | + + + | Geri ArmasstephaniechasePARISA 01/01/2016 16:41 PATIENT NAME: | PACEART | | Moe Sanchez : 1960: AGE: 55 | | | y.o. Device In-office Evaluation Report 12/31/2015 Reason | | | for evaluation: routine Indication for device: ICD-10-CM | | | ICD-9-CM 1. Sinoatrial node dysfunction (HCC) with symptomatic | | | bradycardia I49.5 427.81 ECHO Complete Device Interrogation | | | 2. Coronary artery disease involving kalispel coronary artery of | | | kalispel heart without angina pectoris I25.10 414.01 ECHO [...] + + | Coronary artery disease involving kalispel coronary artery of kalispel heart without | | angina pectoris | [...]
--- OUTSIDE RECORDS SUMMARY | ~2020-06-15 | XMS | Encounter Summary ---
Demographics + + + | Address | [address] | | | [place] [address] | + + + | Home Phone [...] Providers + +------+ + | Care Ship Rigger Apprentice Name | Role | Phone | [...] | Palpitations | [address] | | | | | Procedures | [address] | [address] [place] | | | | | ECHO | [place], | [place], [place] | | | | | Complete | [place] [address] | [address] | | | | | | Phone: | Phone: | | | | | | [phone] | [phone] | | | | | | Fax: | Fax: | | | | | | [phone] | [phone] | +--------+--------+ + + + + Encounter Details +--------+ + + + + | Date | Type | Department | Care Team | Description | +--------+ + + + + | 12/30/ | Hospital | [facility] | SunshinecherelleDaljit, | Palpitations | | 2012 - | Encounter | MED CTR XRAY [address] | [address] | | | | | [place] | [address] [place], | | | 01/01/ | | [place] [address] | [place] [address] | | | 2012 | | [phone] | | | | | | | [...] + + + +---------+ + + | Independence-3 Fatty | CAPS, one capsule by | [...] | | | | | | [place] [address] | | | | | | [phone] | | | | | | | [...] Performed At | + + + | Merged With [facility] | [facility] | | Department [address] [place] [address] | [facility] | | [ rep ct street[address]] [ rep ct [facility] | | st zip] Signed | - IMAGING | | | | | Patient Name: MOE GAY W | | | Physician: MIGUELINA : 1960 Age: 52 Sex: M Unit | | | #: [id number] Exam Date: 12/30/12 Location: | | | G Report #: [id number] Page: | | | %(RAD)RES..mtdd.print.filter("pg") of %(RAD) | | | RES..mtdd.print.filter("tpg") | | | | | | Accession Number: [id number] | | | E C H O C A R D I O G R A P H Y R E P O R T | | | HEIGHT: 76" WEIGHT: 270# | | | COMPACTING MACHINE OPERATOR/TENDER: JAMEEL REFERRING DR: TIMMY DRAKE DR: | [...] | | | Transcribed Date/Time: 12/30/2012 16:34 Spanish Lecturer: | | | <<Signature on File>> | | | Suwong | | | MD CLEOPATRA Singletary FAS01/02/13 0955 <Electronically signed by | | | Daljit Singletary MD, [facility], FACP, FASNanette, FASNC> Daljit | | | MD CLEOPATRA Singletary [facility] 12/30/12 1608 Spanish Lecturer: Canarykaryx | | | Vknnuizxmcatm30/08/13 1634 Daljit Singletary MD FACC | | | FASE | | + + + + + + + + | Performing | Address | City/State/Zipcode | Phone Number | | Organization | | | | + + + + + | [facility] | [address] | [place] | [phone] | | [facility] | | [address] | | | - IMAGING | | | | + + + + + documented in this encounter Visit Diagnoses + + | Diagnosis | + + | Palpitations | + + documented in this encounter
--- OUTSIDE RECORDS SUMMARY | ~2020-06-15 | XMS | Encounter Summary ---
Demographics + + + | Address | [address] | | | [place] [address] | + + + | Home Phone [...] Providers + +------+ + | Care Lens Fabricating Machine Tender Name | Role | Phone [...] + | 02/21/ | Telephone | [facility] | Emmanuel Daniel MD | Other (? referral) | | 2019 | | GASTROENTEROLOGY | [address], [place] | | | | | [address] [place] | [address] [place], [place] | | | | | [address] [place], [place] | [address] | | | | | [address] | | | | | | [phone] | | | +--------+ + + + [...] requesting Dr. Daniel reconsider sending referral to [facility] because they will not acce pt referral from PCP. [facility] told him outside referrals as [...] on Wednesday we can request referral to [facility] for IBS, he agreed. He said likely they will tell him same thing as Dr. Daniel, but he would like [facility] to discuss with them. Phone note on [...] | | | | | | [place] [address] | | | | | | [phone] | | | | | | | | +--------+ + + + + documented as of this encounter Visit Diagnoses Not on filedocumented in this encounter
--- OUTSIDE RECORDS SUMMARY | ~2020-06-15 | XMS | Encounter Summary ---
Demographics + + + | Address | [address] | | | [place] [address] | + + + | Home Phone [...] Providers + +------+ + | Care Precision Aircraft Structure Assembler Name | Role | Phone | [...] 2012 | | CARDIOLOGY [address] | CAMPGROUND MANAGER [address] | | | | | [place], | [address] [place] | | | | | [place] [address] | [address] | | | | | [phone] | | | +--------+ + + + [...] | | | | | | [place], | | | | | | [place] [address] | | | | | | [phone] | | | | | | | [...] + | [address] | [address] | [place] | | | [facility] | | [address] | | | - LABORATORY | [...] | | | LAB | | | Prydeinig, | | | | | | External [...]
--- OUTSIDE RECORDS SUMMARY | ~2020-06-15 | XMS | Encounter Summary ---
Demographics + + + | Address | [address] | | | [place] [address] | + + + | Home Phone [...] Providers + +------+ + | Care Clinical Coordinator Name | Role | Phone | [...] + + | 06/25/ | Office | [facility] | [place], | SINUS BRADYCARDIA | | 2013 | Visit | CARDIOLOGY [address] | PARISA [place] [address] | (Primary Dx); | | | | [place], | [place], | Symptomatic PVCs; | | | | [place] [address] | [place] [address] | Coronary artery | | | | [phone] | [phone] | disease; | | | | | [...] time, he was admitted over observation at [facility] for a chest pain. Aortogram revealed [...] needed for Chest pain. 25 tablet 12 [place]-3 Fatty Acids (SALMON OIL-1000 PO) CAPS, [...] HGBEX 16.1 01/25/2014 I reviewed records from [facility] for emergency department visit o n [...] ventricular arrhythmia performed by Dr. Gambino at [facility] on 01/30/2013. Patient had spontaneous [...] to go back in 3 days to [place] for an attempt of ablation under general [...] made to ensure accuracy; however, inadvertent computerized professor of theatre errors may be pre sent. Electronically signed [...] | | | | | | [place] [address] | | | | | | [phone] | | | | | | | | +--------+ + + + + documented as of this encounter Visit Diagnoses + + | Diagnosis | + + | SINUS BRADYCARDIA - Primary Sinoatrial node dysfunction | + + | Symptomatic PVCs Other premature beats | + + | Coronary artery disease Coronary atherosclerosis of unspecified type of vessel, | | [place] or graft | + + | Hypertension Unspecified essential hypertension | + + | Syncope Syncope and collapse | + + | Hyperlipidemia Other and unspecified hyperlipidemia | + + documented in this encounter
--- OUTSIDE RECORDS SUMMARY | ~2020-06-15 | XMS | Encounter Summary ---
Demographics + + + | Address | [address] | | | [place] [address] | + + + | Home Phone [...] Providers + +------+ + | Care Lead Quality Technician Name | Role | Phone | + +------+ + PCP | Unavailable | + +------+ + Encounter Details +--------+ + + + + | Date | Type | Department | Care Team | Description | +--------+ + + + + | 12/16/ | [facility] | [facility] | Naresh Mckeon | | | 2010 | Encounter | MED CTR SLEEP | MD Chaya [address] | | | | | CENTER [address] | [place] | | | | | [place] | [place] [address] | | | | | [address] | [phone] | | | | | [phone] | | | +--------+ + + + [...] | | | | | | [place] [address] | | | | | | [phone] | | | | | | | | +--------+ + + + + documented as of this encounter Visit Diagnoses Not on filedocumented in this encounter"
--- OUTSIDE RECORDS SUMMARY | ~2020-06-15 | XMS | Encounter Summary ---
Demographics + + + | Address | [address] | | | [place] [address] | + + + | Home Phone [...] + + | 06/06/ | Office | [facility] | [place], | Essential | | 2019 | Visit | CARDIOLOGY [address] | PARISA Vernon [address] | hypertension | | | | [place], | [place], | (Primary Dx); | | | | [place] [address] | [place] [address] | Sinoatrial node | | | | [phone] | [phone] | dysfunction (HCC) | | | | | | with symptomatic | | | | | | bradycardia; | | | | | | Symptomatic PVCs; | | | | | | Tachycardia; | | | | | | Coronary artery | | | | | | disease involving | | | | | | [place]ee coronary | | | | | | artery of [place]ee | | | | | | heart [...] encounter Patient Instructions Patient Instructions Julia Allen, Pulmonary Specialist - 06/06/2019 2:15 PM PDT1. Take a [...] of -critical coronary artery dise ase involving [place] coronary artery of [place] heart without angina pectoris, essential hype rtension, [...] department at [facility] in [place] due to chest pain, no medication changes at that time. On 06/02/2019 he was [facility] with chest pain, irregular heart bet [...] Preventative health care Coronary artery disease involving [place] coronary artery of [place] heart without angina pectoris Cannabis abuse, daily [...] 3RD DOSE, CALL 911 100 tablet 3 [place]-3 Fatty Acids (SALMON OIL-1000 PO) CAPS, one capsule by mouth daily twice daily ondansetron (ZOFRAN ODT) 4 mg disintegrating tablet Take 4 mg by mouth every 8 hours as needed for Nausea. ONE TOUCH DELICA LANCETS [facility] Check glucose as needed for [...] BNP 48 06/02/2019 I reviewed records from [facility] for emergency department visit o n 06/02/2019 which is summarized in the HPI. RESULTS- I reviewed reports from [facility]: Ct Abdomen Pelvis W Contrast Result [...] ASSESSMENT: 1. Non-critical Coronary artery disease involving mus[place] coronary artery of mus[place]ogee heart [facility] angina pectoris: A.Normal exercise sestamibi stress test [...] performed by Dr Juan Diego Gambino at [facility] on 01/30/2013.Patient had spontaneous PVC'sfr om [...] to go back in 3 days to [place] for an attempt of ablation under general [...] visit, or sooner with concerns. Julia Clemente, Pulmonary Specialist am acting as a scribe on behalf of, and in the presenc e of PARISA Lomas. - Julia Allen, Pulmonary Specialist 06/06/2019 15:10 IJaneen ARNP, personally performed the services described in this documentati on, as scribed in my presence and it is both accurate and complete. -PARISA Lomas 06/06/2019 Portions of this chart may have been created with [employer] voice recognition software. Occasi onal wrong-word or [...] | | | | | | [place] [address] | | | | | | [phone] | | | | | | | [...] MD | | | | | | ([id number]) on 06/06/2019 | | | | | [...] + + | Coronary artery disease involving mus[place]ogee coronary artery of muscogee heart without | | angina pectoris | + + | Syncope, unspecified syncope type | + + | Ascending thoracic aortic aneurysm (HCC) Thoracic aneurysm without mention of rupture | + + | Hyperlipidemia, mixed Mixed hyperlipidemia | + + documented in this encounter
--- OUTSIDE RECORDS SUMMARY | ~2020-06-15 | XMS | Encounter Summary ---
Demographics + + + | Address | [address] | | | [place] [address] | + + + | Home Phone [...] Team Providers + +------+ + | Care Bsw Name | Role | Phone | + [...] | CARDIOLOGY [address] | [address] | Interrogation | | | | [place], | [place], | (Primary Dx); | | | | [place] [address] | [place] [address] | Pacemaker; | | | | [phone] | [phone] | Sinoatrial node | | | | [...] (HCC)Date of Remote Interrogation: 2018 Refer to [facility] documentation and remote PDF scanned into [facility] for remote interrogation re sults. Data collected [...] | | | | | | [place] [address] | | | | | | [phone] | | | | | | | [...] remote PDF scanned into | | | [facility] for remote interrogation results. Data [...]
--- OUTSIDE RECORDS SUMMARY | ~2020-06-15 | XMS | Encounter Summary ---
Demographics + + + | Address | [address] | | | [place] [address] | + + + | Home Phone [...] Providers + +------+ + | Care Owner Professional Engineer Name | Role | Phone | + +------+ + | Kirk French MD | PCP | | + +------+ + Reason for Visit +--------+--------+ + | Reason | Onset | Comments | | | Date | | +--------+--------+ + | Other | 01/12/ | plan of care | | | 2019 | | +--------+--------+ + Encounter Details +--------+ + + + + | Date | Type | Department | Care Team | Description | +--------+ + + + + | 01/12/ | Telephone | [facility] | [place], | Other (plan of care) | | 2019 | | CARDIOLOGY [address] | Janeen AUTO BUMPER MECHANIC [address] | | | | | [place], | [place], | | | | | [place] [address] | [place] [address] | | | | | [phone] | [phone] | | | | | | | [...] encounter Miscellaneous Notes Telephone Encounter - Janeen Vega ARNP - 01/18/2019 1:10 PM PSTThank you! elephone Encoun ter - Dileep Negrete RN - 01/18/2019 10:48 AM PSTSpoke with patient and he states he i s pretty sure the chest pain is from anxiety and his PCP thinks so also. He states he has be en under extreme stress and is a anxious and worried person anyway. He saw his PCP yesterda y and he increased the zoloft to 100mg and he is taking the klonipin more often now. He is g oing to proceed with the Cardiac cath on January 25. At this time he is not going to try the Ranexa since he has had other medications cause liver issues so he will discuss with Janeen at their follow up appointment. He did want Janeen to know he quit smoking cigars since his visit with her. elephone Encounter - Dileep Negrete RN - 01/18/2019 10:34 AM PSTMessage left for call back. elephone Janeen Kemp ARNP - 01/17/2019 5:58 PM PSTElerao, Did patient decide on the Ranexa? Electronically signed by: PARISA Lomas 01/17/2019 17:59 elephone Janeen Archibald ARNP - 01/16/2019 2:57 PM PST1. Definitely Get his cardiac cristy terization done. 2. For angina there is NTG SL, Isosorbide (which he mentioned that gives him headaches) and Ranexa (which he has not try). If he wants we can try Ranexa 500 mg bid. He will need a CMP in 1-2 weeks after starting the medication Electronically signed by: PARISA Lomas 01/16/2019 15:01 elephone Mariana Jaimes RN - 01/16/2019 12:09 PM PSTPatient called, stated that he has be en having chest pain daily. Once or twice, sometimes all day. Last night he was going to go to ED, he took a nitro. He became faint, pale and still had the chest pain. He is feeling be tter today. He would like Janeen MCCAULEY to know, and is there anything else that he can take for the chest pain? I informed him that I would consult with Janeen and return his call ..........................................Mariana Valentine RN on 01/16/19 at 12:18 elephone Mariana Zaidi RN - 01/16/2019 11:24 AM PSTPatient notified, dates and instructio ns given. Mailed lab slip and instructions to patient's home ............................... ...........Mariana Valentine RN on 01/16/19 at 11:26 elephone [facility] Darlene Tirado RN - 01/13/2019 1:18 PM PSTLeft message at cell number for patient t o return my call. Attempted to contact patient at home number, mailbox not set up .......... .................................Darlene Tirado RN on 01/13/19 at 13:19 elephone Renée - Darlene Tirado RN - 01/13/2019 8:42 AM PSTLeft message at cell number for patient to return my call. Attempted to contact patient at home number, mailbox not set up ............ ...............................Darlene Tirado RN on 01/13/19 at 8:44 elephone [facility] - 01/12/2019 5:25 PM PSTReceived voicemail message from patient that he was returning call ..........................................Mariana Valentine RN on 01/12/19 at 17:25 elephone Darlene Whitney RN - 01/12/2019 2:08 PM PSTLeft message at home number for patient t o return my call. ...........................................Darlene Tirado RN on 01/12/19 at 14:08 elephone Darlene Edward RN - 01/12/2019 9:05 AM PSTPatient was here to see Janeen on 01-11. S he has spoken with Dr Brasher and a plan has been decided. Patient will not restart flecainide at this time. He will need to come back for a LHC, CTA and follow up. AVS was created fro m appointment and is in center box at RN desk, details of dates, times and instructions are on the AVS. Patient needs to be notified. Attempted to contact patient by cell number, no answer, no voicemail. Left message at home number for patient to return my call. .......... .................................Darlene Tirado RN on 01/12/19 at 9:17 documented in this encounter Plan of Treatment [...] | | | | | | [place] [address] | | | | | | [phone] | | | | | | | | +--------+ + + + + documented as of this encounter Visit Diagnoses Not on filedocumented in this encounter"
--- OUTSIDE RECORDS SUMMARY | ~2020-06-15 | XMS | Encounter Summary ---
Demographics + + + | Address | [address] | | | [place] [address] | + + + | Home Phone [...] Providers + +------+ + | Care Engine Tester Name | Role | Phone | + +------+ + | Kirk French MD | PCP | | + +------+ + Reason for Visit + +--------+ + | Reason | Onset | Comments | | | Date | | + +--------+ + | Appointment | 05/05/ | | | | 2016 | | + +--------+ + Encounter Details +--------+ + + + + | Date | Type | Department | Care Team | Description | +--------+ + + + + | 05/05/ | Telephone | [facility] | [place], | Appointment | | 2017 | | CARDIOLOGY [address] | PARISA Vernon [address] | | | | | [place], | [place], | | | | | [place] [address] | [place] [address] | | | | | [phone] | [phone] | | | | | | | [...] this encounter Miscellaneous Notes Telephone Encounter - Emma Gale - 05/07/2017 11:14 AM PDTWas able to reach patient in regards to his appointment on 05/13/17. Patient declined to reschedule and states that hi s blood pressure is doing fine now that he is on a new anxiety medication. Confirmed with lala carlos that we were cancelling his appointment on 05/13/17 with Janeen. elephone Encounter - Emma Gale - 10:18 AM PDTCalled patient a second time and left a voicemail message regarding his appointment with Janeen on 05/13/17. I have an appointment time held for this patient to be seen sooner on Wednesday05/10/17 @ 1:30. elephone Encounter - Briseida Martino - 05/05/2017 8:12 AM PDTPatient's car diology appointment with Janeen Vega on 05-13-17 at 3:00 needs to be rescheduled as pro vider is out. Called patient, left [facility] with request for patient to call back to reschedule. documented in this encou nter Plan of [...] | | | | | | [place] [address] | | | | | | [phone] | | | | | | | | +--------+ + + + + documented as of this encounter Visit Diagnoses Not on filedocumented in this encounter"
--- OUTSIDE RECORDS SUMMARY | ~2020-06-15 | XMS | Encounter Summary ---
Demographics + + + | Address | [address] | | | [place] [address] | + + + | Home Phone [...] Team Providers + +------+ + | Care Drain Cleaner Plumber Name | Role | Phone | [...] + + | 07/07/ | Telephone | [facility] | Daljit Singletary, | Appointment | | 2012 | | CARDIOLOGY [address] | [address] [place] | | | | | [place], | [place], | | | | | [place] [address] | [place] [address] | | | | | [phone] | [phone] | | | | | | | [...] AM PDTPer Joy at Dr Gambino in [place]: Patient h ad an ablation in January [...] | | | | | | [place], | | | | | | [place] [address] | | | | | | [phone] | | | | | | | | +--------+ + + + + documented as of this encounter Visit Diagnoses Not on filedocumented in this encounter"
--- OUTSIDE RECORDS SUMMARY | ~2020-06-15 | XMS | Encounter Summary ---
Demographics + + + | Address | [address] | | | [place] [address] | + + + | Home Phone [...] Organization | [facility] | | | [...] Providers + +------+ + | Care Flight Attendant Inflight Services Name | Role | Phone | + [...] | | | | CENTER [address] | [address] [place] | | | | | [place], [place] | [place] [address] | | | | | [address] | [phone] | | | | | [phone] | | | +--------+ + + + [...] + + + +---------+ + + | [place]-3 Fatty | CAPS, one capsule by | [...] might be differe nt from the original. [facility] Moe Sanchez Emergency Department Encounter Note [address] [place] [address] PCP:Kirk French MD [phone] DIAGNOSIS: 1. Bronchitis CHIEF COMPLAINT: Chief Complaint Patient presents with Cough Mode of Arrival: walk-in ED Room: ED04 [facility] Moe Sanchez is a 57 y.o. [...] performed by Dr. Gambino at [facility] on 01/30/2013. Patient had spontaneous PVCs [...] to go back in 3 days to [place] for an attempt of ablation under general [...] Left Heart Cath, 02/29/2012, LVEF is 65%, [facility] Myocardial Gated Stress Test, 05/25/2009, EF 53 % during rest and 52% during stress. [place] Sestamibi Stress Test, 06/14/2008, LVEF is 60%, [facility] 12/25/13, shows noncritical coronary artery disease, [...] SERIAL# DATE IMPLANTED GENERATOR Medtronic DDD ADDR01 [id number] 06/14/09 RV LEAD Medtronic Active Bipolar CapSureFix 4076 [id number] 06/14/09 A LEAD Medtronic Active Bipolar CapSurFix 4076 [id number] 06/14/09 Depression with anxiety 12/24/2017 Priority: Medium Coronary artery disease involving [place] coronary artery of [place] heart without angina pectoris 12/21/2013 Priority: Medium [...] tissue attenuation cannot completely be ruled out. [facility] 12/25/13, shows non critical coronary artery [...] Last Updated: 12/24/2017 Lower back injury (From [facility]) 1981 1985 Hyperlipidemia, mixed Priority: [...] 07/26/[address] Angiogram chest w/constrast 05/26/14 [facility] Hypoglycemia 09/20/2012 Bipolar disorder (HCC) [...] Procedure: COLONOSCOPY; Surgeon: Emmanuel Daniel MD; Location: [facility] MEDICAL PROCEDURE UNIT HARDWARE REMOVAL KNEE SURGERY 2003 meniscus-right LAMINECTOMY 1991 L3-4 LUMBAR DISCECTOMY 1991 L3-4 LUMBAR FUSION 01/2011 6 spine fusions neck fusion 08/10/2012 [place] NECK SURGERY PACEMAKER PLACEMENT 06/14/09 SHOULDER SURGERY 03/22/13 SINUS SURGERY 1997 SPINAL FUSION STOMACH SURGERY UPPER GASTROINTESTINAL ENDOSCOPY N/A 12/24/2017 Procedure: EGD; Surgeon: Emmanuel Daniel MD; Location: [facility] MEDICAL PROCEDURE UNIT VASECTOMY CURRENT MEDICATIONS Previous [...] take 1 tablet by mouth every evening [facility] NATURAL [employer]ODUCTS (OSTEO BI-FLEX/5-LOXIN [...] daily twice daily ONE TOUCH [facility]ICA [facility]ANCETS [facility] [...] were reviewed along with EMS notes and skilled nursing record s if applicable. (See chart for [...] Specialty: Internal Medicine Contact information: Eva DOMINGUEZ [address] [address] New Prescriptions AZITHROMYCIN (ZITHROMAX) 250 MG TABLET Take 2 tablets by mouth daily x 1 day, then take 1 tablet by mouth daily x 4 days. GUAIFENESIN (ROBITUSSIN) 100 MG/5ML LIQUID Take 10-20 mLs by mouth every 4 hours as nee ded for Cough. Portions of this chart were created with [employer] voice recognition software. Inadvertent so und alike substitutions may be present and are unintentional Martell Castillo MD 02/01/18 6153 Geri Barnes, Student FINANCIAL INSTITUTION T[employer]ASURER - 02/01/2018 1:48 PM PDTPt complains that he has bronchitis type symptoms x 3 d ays with cough and productive sputumElectronically signed by Geri Olivo, Student FINANCIAL INSTITUTION TREASURER at 1:49 PM PDTdocumented in this encounter [...] | | | | | | [place] [address] | | | | | | [phone] | | | | | | | [...] W?MRN: | | | | | | [id number] | | | [id number] | | | his | | | [...] | | | ent/60 | | | [id number] | | | [phone]- | | | [...] | | | St. | | | [place] | | | y H. | | [...] | | | St. | | | [place] | | | y H. | | [...] | | | St. | | | [place] | | | y H. | | [...] | | | St. | | | [place] | | | y H. | | [...] | | | St. | | | [place] | | | y | | | [...] | | | ext. | | | [address] | | | or go | | [...] ST. | [address] | [place], [place] | [phone] | | [facility] | | [address] | | | - LABORATORY | | [...] [address] | [place] | [phone] | | [facility] | | [address] | | | - LABORATORY | | [...] 10 | 7 - 18 mg/dL | [facility] | | | | | | [facility] | | | | | | MEDICAL | | | | | | CENTER - | | | | | | LABORATORY | | + + + + + + | Creatinine | 0.82 | 0.60 - 1.30 | [facility] | | | | | mg/dL | [facility] | | | | | | MEDICAL | | | | | | CENTER - | | | | | | LABORATORY | | + + + + + + | eGFR if not | >60Comment: GLOMERULAR | >=60 | [facility] | | | | FILTRATION | mL/min/1.73m2 | [facility] | | | SOMALI | RATE,ESTIMATED | | MEDICAL | | | | mL/min/1.30a3Kzxf than | | CENTER - | | [...] + | [facility] | [address] | [place] | [phone] | | [facility] | | [address] | | | - LABORATORY | | [...] | | Basophils | | K/uL | [facility] | | | | | [...] [address] | [place] | [phone] | | [facility] | | [address] | | | - LABORATORY | | | | + + + + + documented in this encounter Visit Diagnoses + + | Diagnosis | + + | Bronchitis - Primary Bronchitis, not specified as acute or chronic | + + documented in this encounter
--- OUTSIDE RECORDS SUMMARY | ~2020-06-15 | XMS | Encounter Summary ---
Demographics + + + | Address | [address] | | | [place] [address] | + + + | Home Phone [...] Team Providers + +------+ + | Care Landcare Officer Name | Role | Phone | + +------+ + | Kirk French MD | PCP | | + +------+ + Encounter Details +--------+ + + + + | Date | Type | Department | Care Team | Description | +--------+ + + + + | 01/05/ | Orders Only | [facility] | Emmanuel Daniel MD | | | 2019 | | [facility] | [address], [place] | | | | | PATHOLOGY [address] | [address] [facility] [place] | | | | | [address] [place], [place] | [address] | | | | | [address] | | | | | | [phone] | | | +--------+ + + + [...] | | | | | | [place] [address] | | | | | | [phone] | | | | | | | [...] | | | (atherosclerotic heart disease of [place] coronary artery without | | | angina [...] chronic or | | | microscopic colitis. [facility]:C3NR GROSS DESCRIPTION: A. The | | | specimen, labeled "[place], duodenal biopsy" is received in formalin | | | and consists of seven 0.1-0.5 cm lin fragments. Entirely submitted in | | | (A1). B. The specimen, labeled "[place], right colon" is received | | | in formalin and consists of six 0.2-0.3 cm lin fragments. Entirely | | | submitted in (B1). C. The specimen, labeled "[place], left colon" | | | is received in formalin and consists of six 0.2-0.3 cm lin-pink | | | fragments. Entirely submitted in (C1). am:LEWIS:portillo PERFORMING | | | LABORATORY: The technical component was performed by [facility] | | | [facility], [address] [facility] [address] (Sand Worker: | | | Kailey Stafford MD; CLIA# [id number]). Professional interpretation was | | | performed by [facility], [facility], [address] | | | [place] [address] (Sand Worker: Ishaan | | | Anthony Dao; CLIA#: [id number]). Diagnostician: Ishaan Dao | | | Pathologist [...]
--- OUTSIDE RECORDS SUMMARY | ~2020-06-15 | XMS | Encounter Summary ---
Demographics + + + | Address | [address] | | | [place] [address] | + + + | Home Phone [...] Providers + +------+ + | Care Advertising Sales Associate Name | Role | Phone [...] | CARDIOLOGY [address] | Interrogation | | | | [place], | [place], | (Primary Dx); | | | | [place] [address] | [place] [address] | Presence of | | | | [phone] | [phone] | permanent cardiac | | | | [...] encounter Procedure Notes Daljit Singletary MD - 02/19/2019 11:59 PM PDTAssociated Order(s): DEVICE INTERROGATION- R EMOTEProcedure(s): DEVICE INTERROGATION- REMOTEPre-Procedure Diagnose(s): Pacemaker reprogra mming/check; Presence of permanent cardiac pacemaker; Sinoatrial node dysfunction (HCC)Date of Remote Interrogation: 12/29/18 Refer to Paceart documentation and remote PDF scanned into [employer] for remote interrogation re sults. Data collected by Kailey Pruitt RN Presenting rhythm: sinus rhythm atrial paced ventricular sensed between 83-87 beats. 2 mode switch episodes accounting for <0.1% of the time. 0 atrial high rate episodes. 1 ventricular high rate episodes. The longest occurred 09/24/18 at 1:07 PM for 3 seconds. EGM is consistent with atrial tachycardia with rate 160-180 beats. PVC singles 1012 PVC singles 253/month PVC runs 8 PVC runs 2/month Histogram fair. Battery longevity 28 months. Apparent normal and stable device function. [...] | | | | | | [place] [address] | | | | | | [phone] | | | | | | | [...] Paceart documentation and remote PDF scanned into [employer] | | | for remote interrogation results. [...]
--- OUTSIDE RECORDS SUMMARY | ~2020-06-15 | XMS | Encounter Summary ---
Demographics + + + | Address | [address] [place] [address] [address] | | | [place] [address] | + + + | Home Phone [...] [place] | | | | | [address] | | + + + + + Care Team Providers + +------+ + | Care Teacher Counselor Name | Role | Phone | [...] 2019 | | Center at [facility] 3485 | MD [address] | diarrhea; sent to | | | | [address] | [place], [place] | ED) | | | | for Health and | [address] | | | | | [facility], [facility] 2 | [phone] | | | | | [place], [place] | | | | | | [address] | | | | | | [phone] | | | +--------+ + + + [...]
--- OUTSIDE RECORDS SUMMARY | ~2020-06-15 | XMS | Encounter Summary ---
Demographics + + + | Address | [address] | | | [place] [address] | + + + | Home Phone [...] Team Providers + +------+ + | Care Fireman Helper Name | Role | Phone | [...] 2018 | | GASTROENTEROLOGY | [address], [place] | | | | | [address] [place] | [address] [place], [place] | | | | | [address] [place], [place] | [address] | | | | | [address] | | | | | | [phone] | | | +--------+ + + + [...] | | | | | | [place] [address] | | | | | | [phone] | | | | | | | [...]
--- OUTSIDE RECORDS SUMMARY | ~2020-06-15 | XMS | Encounter Summary ---
Demographics + + + | Address | [address] | | | [place] [address] | + + + | Home Phone [...] + +------+ + | Care Head Of Store Operations Name | Role | Phone | [...] | CARDIOLOGY [address] | Interrogation | | | | [place], | [place], | (Primary Dx); | | | | [place] [address] | [place] [address] | Presence of | | | | [phone] | [phone] | permanent cardiac | | | | [...] Paceart documentation and remote PDF scanned into [employer] for remote interrogation re sults. Data collected [...] | | | | | | [place] [address] | | | | | | [phone] | | | | | | | [...] remote PDF scanned into | | | [facility] for remote interrogation results. Data [...]
--- OUTSIDE RECORDS SUMMARY | ~2020-06-15 | XMS | Encounter Summary ---
Demographics + + + | Address | [address] | | | [place] [address] | + + + | Home Phone [...] Team Providers + +------+ + | Care Fee Clerk Name | Role | Phone | [...] | | | | CENTER [address] | [place], [place] | (Primary Dx) | | | | [place], [place] | [address] | | | | | [address] | | | | | | [phone] | | | +--------+ + + + [...] + + + +---------+ + + | [place]-3 Fatty | CAPS, one capsule by | [...] NotE CHIEF COMPLAINT: Chest pain HPI Moe Sanchze is a 56 y.o. male who presents [...] known pacemaker that had a recent in [employer] that was working. PAST MEDICAL & SURGICAL [...] take 1 tablet by mouth every evening [facility] (OSTEO BI-FLEX/5-LOXIN ADVANCED PO) Take [...] daily twice daily ONE TOUCH DELICA LANCETS [facility] Check glucose as needed for hypoglycemia PRAVASTATIN [...] like he was ran over by a Togethera i. Pt took [address] over from [employer].Electronically signed by MONROE Olivo at 03/2017 12:20 [...] | | | | | | [place] [address] | | | | | | [phone] | | | | | | | [...] 12 | 7 - 18 mg/dL | [facility] | | | | | | [facility] | | | | | | MEDICAL | | | | | | CENTER - | | | | | | LABORATORY | | + + + + + + | Creatinine | 0.84 | 0.60 - 1.30 | [facility] | | | | | mg/dL | [facility] | | | | | | MEDICAL | | | | | | CENTER - | | | | | | LABORATORY | | + + + + + + | eGFR if not | >60Comment: GLOMERULAR | >=60 | [facility] | | | | FILTRATION | mL/min/1.73m2 | [place] MICHELLE | | | NAURUAN | RATE,ESTIMATED | | MEDICAL | | | | mL/min/1.76n8Emxc than | | CENTER - | | [...] + | [facility] | [address] | [place] | [phone] | | [facility] | | [address] | | | - LABORATORY | | [...] Brown Results In - 01/24/2017 1:16 PM [facility] PORTABLE CHEST X-RAY: 01/24/2017 12:28 PM | [...] | | | | ANGELA MARADIAGA MD ([id number]) | | | | | | on [...] | | | | | | [employer] | | | | | [...] [address] | [place] | [phone] | | [facility] | | [address] | | | - LABORATORY | | [...] [address] | [place] | [phone] | | [facility] | | [address] | | | - LABORATORY | | [...]
--- OUTSIDE RECORDS SUMMARY | ~2020-06-15 | XMS | Encounter Summary ---
Demographics + + + | Address | [address] | | | [place] [address] | + + + | Home Phone [...] Providers + +------+ + | Care Freight Car Loader Name | Role | Phone | [...] | | | | stenosis | L, LABOR DELIVERY SPECIALIST [address] | | | | | | Procedures | [address] | | | | | | CT | [address] | | | | | | Myelography | [place], [place] | | | | | | Cervical | [address] | | | | | | Spine | Phone: | | | | | | | [phone] | | | | | | | Fax: | | | | | | | [phone] | | +--------+--------+ + + + + [...] CTR CT [address] | Marietta Mason LABOR DELIVERY SPECIALIST [address] | stenosis | | | | [place], | [address] | | | | | [place] [address] | [place] [address] | | | | | [phone] | [phone] | | | | | | | [...] + + + +---------+ + + | [place]-3 Fatty | CAPS, one capsule by | [...] W | | | | | | [place], | | | | | | [place] [address] | | | | | | [phone] | | | | | | | [...]
--- OUTSIDE RECORDS SUMMARY | ~2020-06-15 | XMS | Encounter Summary ---
Demographics + + + | Address | [address] | | | [place] [address] | + + + | Home Phone [...] | + + +---------+ + | Nadine Patlegalenvarsha | ECON | Unknown | | + + +---------+ + Care Team Providers + +------+ + | Care Pipe Fittings Molder Name | Role | Phone | [...] + | 08/23/ | Emergency | [facility] | Michael Montoya MD | Peripheral edema | | 2015 | | [facility] EM[facility] | [address] | (Primary Dx); Venous | | | | CENTER [address] | [place], [place] | insufficiency | | | | [place], [place] | [address] | | | | | [address] | | | | | | [phone] | | | +--------+ + + + [...] sent through Care Everywhere.PERIPHERAL KENYETTA Cr, MAMADOU (MOHAWK)documented in this encounter Medications at Time of [...] + + + +---------+ + + | [place]-3 Fatty | CAPS, one capsule by | [...] | | | | | | | #[id number], exp 07/2016 | | | | | [...] Montoya MD - 08/23/2015 7:22 PM PDT [facility] Moe Sanchez Emergency Department Encounter Note [address] [place] [address] PCP:Kirk French MD [phone] CHIEF COMPLAINT: Leg swelling HPI Moe Sanchez is a 55 y.o. male who presents to the Emergency Department who has been having bilateral leg swelling this been ongoing since a recent trip to [place]. He's not had chest pain or increasing shortness of breath. He had some increased pain in the leg s and noticed redness of both legs. He was seen at 2 different hospitals in [place] to have the leg evaluated. He initially [...] W | | | | | | [address] [place] [place], | | | | | | [place] [address] | | | | | | [phone] | | | | | | | | +--------+ + + + + documented as of this encounter Visit Diagnoses + + | Diagnosis | + + | Peripheral edema - Primary Edema | + + | Venous insufficiency Unspecified venous (peripheral) insufficiency | + + documented in this encounter
--- OUTSIDE RECORDS SUMMARY | ~2020-06-15 | XMS | Encounter Summary ---
Demographics + + + | Address | [address] | | | [place] [address] | + + + | Home Phone [...] Providers + +------+ + | Care Gift Officer Name | Role | Phone | + +------+ + | Kirk French MD | PCP | | + +------+ + Encounter Details +--------+ + + + + | Date | Type | Department | Care Team | Description | +--------+ + + + + | 01/07/ | Hospital | [facility] | Conversion | | | 2017 | Encounter | [facility] | Transaction, | | | | | ULTRASOUND 9[address] | Provider Unknown | | | | | [address] | [phone] | | | | | [facility] [place] | | | | | | [address] | Kirk French | | | | | [phone] | MD Eva Guidry | | | | | | [address] [place], | | | | | | [place] [address] | | | | | | [phone] | | | | | | | [...] + + +---------+ + + | [place]-3 Fatty | CAPS, one capsule by | [...] | | | | | | [place] [address] | | | | | | [phone] | | | | | | | | +--------+ + + + + documented as of this encounter Visit Diagnoses Not on filedocumented in this encounter"
--- OUTSIDE RECORDS SUMMARY | ~2020-06-15 | XMS | Encounter Summary ---
Demographics + + + | Address | [address] | | | [place] [address] | + + + | Home Phone [...] Providers + +------+ + | Care Inspector Material Disposition Name | Role | Phone | + [...] [address] | | | | | [address] | [place], [place] | | | | | [phone] | [address] | | | | | | [phone] | | | | | | | [...] | | 2019 | Visit | | [place] [address] | | | | | | [place], | | | | | | [place] [address] | | | | | | [phone] | | | | | | | [...] + + + + | Non- | 4.54 | 4.20 - 5.70 | EXTERNAL | | | Red Blood | | 10*6/uL | LAB | | | Cells | | | | | | Counted | | | | | + + + + + + | Hemoglobin | 15.6 | 13.2 - 17.0 | [...]
--- OUTSIDE RECORDS SUMMARY | ~2020-06-15 | XMS | Encounter Summary ---
Demographics + + + | Address | [address] | | | [place] [address] | + + + | Home Phone [...] Team Providers + +------+ + | Care Predatory Hunter Name | Role | Phone | + [...] 2019 | | GASTROENTEROLOGY | [address], [place] | | | | | [address] [place] | [address] [place], [place] | | | | | [address] [place], [place] | [address] | | | | | [address] | | | | | | [phone] | | | +--------+ + + + [...] with plan to go to ER in [place].......... ..................................Kasie Ashley RN on 12/29/18 at 15:39 [...] | | | | | | [place] [id number] | | | | | | [phone] | | | | | | | | +--------+ + + + + documented as of this encounter Visit Diagnoses Not on filedocumented in this encounter"
--- OUTSIDE RECORDS SUMMARY | ~2020-06-15 | XMS | Encounter Summary ---
Demographics + + + | Address | [address] [place] [address] [address] | | | [place] [address] | + + + | Home Phone [...] [place] | | | | | [address] | | + + + + + Care Team Providers + +------+ + | Care Fuel Cell Binder Name | Role | Phone | + [...] | | | | | [place] | [place], [place] | | | | | | [place], [place] | [address] | | | | | | [address] | Phone: | | | | | | Phone: | [phone] | | | | | | [phone] | Fax: | | | | | | Fax: | [phone] | | | | | | [phone] | | +--------+--------+ + + + + Encounter Details +--------+---------+ + + + | Date | Type | Department | Care Team | Description | +--------+---------+ + + + | 09/28/ | Office | Digestive Health | Bridgette Rios, | Chronic diarrhea | | 2019 | Visit | Center at [facility] [address] | [address] | (Primary Dx); | | | | [address] [facility] | [place], [place] | Abdominal cramping; | | | | for Health and | [address] | Unintentional weight | | | | [facility], [facility] 2 | [phone] | loss | | | | [place], [place] | | | | | | [address] | | | | | | [phone] | | | +--------+---------+ + + + [...] some lab orders to [facility] [place] 2. tabulating supervisor the nortryptiline and take 1 tablet [...] different fr om the original. Gastroenterology Clinic [facility] ~ Initial Consultation / New [...] inflammatory bowel disease. CT scan done through [facility] November show ed mild diverticulosis without evidence [...] of Present Illness: Here with his from [place] for second opinion regarding severe abdominal cramps, isreal rrhea and weight loss following a GI illness contracted during a trip to [place]. He reports that 2 years ago he was traveling in [place] and he had some suspicious seafood. He develo ps profound bloody diarrhea with severe abdominal pain. He was hospitalized in [facility] and w as treated with IV [...] file Gets together: Not on file Attends advent service: Not on file Active member of [...] ova and parasite, stool culture and also ceelste l obtain fecal calprotecin and fecal elastase [...] Plan and Recommendations: 1. [facility] in [place] for stool studies as outlined above 2. If negative and symptoms persist, recommend capsule endoscopy (this could be completed b y local welcome center agent or he could return to [place] for this test) 3. Nortryptiline 25mg q HS with instruction to titrate to 50mg q HS after 2 weeks if tolera kevin Follow-Up: with local welcome center agent Counseling Time: I spent a total of 35 minutes with this patient, of which greater than 50 % of the time was spent in counseling. Specific issues that were discussed included a revie w of the disease, diagnostic tools that help in our management plans for the patient's chron ic diarrhea, abdominal cramping and weight loss and goals for treatment. Bridgette Rios MD Auto Body Man Gastroenterology documented in this e ncounter [...]
--- OUTSIDE RECORDS SUMMARY | ~2020-06-15 | XMS | Encounter Summary ---
Demographics + + + | Address | [address] | | | [place] [address] | + + + | Home Phone [...] + +------+ + | Care Automotive Service Director Name | Role | Phone | [...] + + | 10/23/ | Office | [facility] | Silvia, | CAD (coronary artery | | 2013 | Visit | CARDIOLOGY [address] | [place] [address] | disease) (Primary | | | | [place], | [place], | Dx); Other chest | | | | [place] [address] | [place] [address] | pain; Chest pain; | | | | [phone] | [phone] | Coronary artery | | | | [...] Sanchez Date: October 23, 2014 : 1960 Cabinetmaker Maintenance: Kailey Pruitt RN Device Nail Artist: Medtronic Sense (mV) Impedance (?) Capture (V) Capture (ms) A Lead 2.80-4.00 407 1.500 0.09 RV Lead 22.40-31.36 519 2.000 0.09 LV Lead Battery Impedance (?): 658 Battery Voltage (V): 2.79 AK Interval (ms): 155 AR Interval (ms): 240 VA Conduction: Mode Switch Events: 1 % of time: <0.1 -SPARE PERSON: <0.1% AP-SPARE PERSON: <0.1% -VS: 13.8% AP-VS: 86.1% SPARE PERSON: Magnetic Rate: 85 LINDA: 65 LEAH: Current [...] needed for Chest pain. 25 tablet 12 [place]-3 Fatty Acids (SALMON OIL-1000 PO) CAPS, one capsule by mouth daily twice daily ONE TOUCH DELICA LANCETS [facility] Check glucose as needed for hypoglycemia 100 [...] attenuation cannot completely be ruled out. [facility] 12/25/13, shows non critical coronary artery [...] He is i n class I-II of [place] [employer] functional class. There are no [...] to go back in 3 days to [place] for an attempt of ablation under general [...] dizziness. He is in class I-II of [place] Heart Association functional class. There are n [...] this chart may have been created with [employer] voice recognition software. Occasi onal wrong-word or [...] Sanchez Date: October 23, 2014 : 1960 Cabinetmaker Maintenance: Kailey Pruitt RN Device Nail Artist: Medtronic Sense (mV) Impedance (?) Capture (V) Capture (ms) A Lead 2.80-4.00 407 1.500 0.09 RV Lead 22.40-31.36 519 2.000 0.09 LV Lead Battery Impedance (?): 658 Battery Voltage (V): 2.79 AK Interval (ms): 155 AR Interval (ms): 240 VA Conduction: Mode Switch Events: 1 % of time: <0.1 -SPARE PERSON: <0.1% AP-SPARE PERSON: <0.1% -VS: 13.8% AP-VS: 86.1% SPARE PERSON: Magnetic Rate: 85 LINDA: 65 LEAH: Current [...] Kailey Pruitt RN 10/23/2014 15:22 [facility] - 12/[facility] 12:00 AM PSTAssociated Order(s): [...] | | | | | | [place], | | | | | | [place] [address] | | | | | | [phone] | | | | | | | [...] 23, 2014 : | | | 1960 Cabinetmaker Maintenance: Kailey Pruitt RN Device Nail Artist: | | | Medtronic Sense (mV) Impedance (?) Capture (V) Capture (ms) A | | | Lead 2.80-4.00 407 1.500 0.09 RV Lead 22.40-31.36 519 2.000 0.09 | | | LV Lead Battery Impedance (?): 658 Battery Voltage (V): 2.79 | | | AK Interval (ms): 155 AR Interval (ms): 240 VA Conduction: Mode | | | Switch Events: 1 % of time: <0.1 -SPARE PERSON: <0.1% AP-SPARE PERSON: <0.1% -VS: | | | 13.8% AP-VS: 86.1% SPARE PERSON: Magnetic Rate: 85 LINDA: 65 LEAH: Current [...] | | Date: October 23, 2014DOB: 1960 Cabinetmaker Maintenance: Ly Saulvice Nail Artist: | | Medtronic Sense (mV) Impedance (?) Capture (V) Capture (ms) A Lead 2.80-4.00 407 1.500 | | 0.09 RV Lead 22.40-31.36 519 2.000 0.09 LV Lead Battery Impedance (?): 658 Battery | | Voltage (V): 2.79 AK Interval (ms): 155 AR Interval (ms): 240 VA Conduction: Mode | | Switch Events: 1 % of time: <0.1 -SPARE PERSON: <0.1% AP-SPARE PERSON: <0.1% -VS: 13.8% AP-VS: 86.1% SPARE PERSON: | | Magnetic Rate: 85 LINDA: 65 [...] of unspecified type | | of vessel, northwestern shoshone or graft | + + | Other chest pain | + + | Chest pain Chest pain, unspecified | + + | Coronary artery disease Coronary atherosclerosis of unspecified type of vessel, | | northwestern shoshone or graft | + + | Pacemaker [...]
--- OUTSIDE RECORDS SUMMARY | ~2020-06-15 | XMS | Encounter Summary ---
Demographics + + + | Address | [address] | | | [place] [address] | + + + | Home Phone [...] Providers + +------+ + | Care Medical Sales Associate Name | Role | Phone [...] + + | 04/24/ | [facility] | [facility] | Jay Cohn PA | DIDIER on CPAP (Primary | | 2012 | Visit | SLEEP DISORDER [address] | [address] | Dx) | | | | [address] [place] | [place] | | | | | [place] [address] | [address] | | | | | [phone] | | | +--------+---------+ + + + [...] pillows obtained from: [facility] [place] pressure is: 13 cm CPAP download shows [...] to go to [facility] [place] to have them download his memory card. I will readjust his pressure, if necessary. I will call him with the results. He is to work toward wearing his CPAP 100% of the time he is asleep. I will follow up again in 1 month, sooner prn. Fifteen minutes were spent [id number], wi th the majority of time spent [...] | | | | | | [place] [address] | | | | | | [phone] | | | | | | | | +--------+ + + + + documented as of this encounter Visit Diagnoses + + | Diagnosis | + + | DIDIER on CPAP - Primary Obstructive sleep apnea (adult) (pediatric) | + + documented in this encounter
--- OUTSIDE RECORDS SUMMARY | ~2020-06-15 | XMS | Encounter Summary ---
Demographics + + + | Address | [address] | | | [place] [address] | + + + | Home Phone [...] Providers + +------+ + | Care Manager Recovery Name | Role | Phone | + [...] ) | | | | [place] | [place] | | | | | [address] | [address] | | | | | [phone] | | | +--------+ + + + [...] for flow max be sent to the [facility] [place] like this is [...] | | | | | | [place] [address] | | | | | | [phone] | | | | | | | | +--------+ + + + + documented as of this encounter Visit Diagnoses Not on filedocumented in this encounter"
--- OUTSIDE RECORDS SUMMARY | ~2020-06-15 | XMS | Encounter Summary ---
Demographics + + + | Address | [address] | | | [place] [address] | + + + | Home Phone [...] Providers + +------+ + | Care Client Relationship Executive Name | Role | Phone | [...] | initial encounter; | | | | [facility] | | Elevated blood | | | | [address] | | pressure reading; | | | | [phone] | | Numbness and | | | [...] + + + +---------+ + + | [place]-3 Fatty | CAPS, one capsule by | [...] 10/29/172129 Date of Service: 10/29/171410 Status: Signed Electrophysiology Tech: Tor Reynolds MD (Physician) [facility] Department of Emergency Medicine 2:24 PM History [...] 1 disorder (HCC) CAD (coronary artery disease), [place] artery transplanted heart Cannabis abuse Chronic neck [...] Laterality Date ABDOMINAL SURGERY adhesions removed APPENDECTOMY [facility] CARDIAC CATHETERIZATION HARDWARE REMOVAL KNEE ARTHROSCOPY Bilateral LASER ABLATION x3 PACEMAKER INSERTION SHOULDER SURGERY Bilateral Rotator Cuff Repairs SPINAL FUSION 4 Cervical fusions; [place] in [place] SPINAL FUSION 2 Lumbar Fusions; [place], [place], [place] SPINE SURGERY Prior to Admission [...] education: 12 Occupational History Disabled Retired from [employer] Social History Main Topics Smoking status: Former [...] No sign o f infection to suggest BUSINESS RELATIONSHIP MANAGER infection or PNA or UTI as cause [...] As needed [address] [facility] [address] [facility] Emergency Department Emergency Medicine If symptoms worsen [address] [facility] [address] [facility] [place] [facility] As needed [address] [facility] [id number] Discharge Medications: Discharge Medication List as of [...] 10/29/171402 Date of Service: 10/29/171400 Status: Signed Electrophysiology Tech: Jessica Arellano RN (Registered Nurse) 2 patient [...] | 10/30/ | Office | Cardiology | [place], | | | 2020 | Visit | | [place] [address] | | | | | | [place], | | | | | | [place] [address] | | | | | | [phone] | | | | | | | [...]
--- OUTSIDE RECORDS SUMMARY | ~2020-06-15 | XMS | Encounter Summary ---
Demographics + + + | Address | [address] | | | [place] [address] | + + + | Home Phone [...] Team Providers + +------+ + | Care Slab Puller Name | Role | Phone | [...] | | | 2013 | | [facility] [place] | DO [address] | | | | | [address] | [place] | | | | | [place] | [address] | | | | | [address] | | | | | | [phone] | | | +--------+ + + + [...] | | | | | | [place] [address] | | | | | | [phone] | | | | | | | | +--------+ + + + + documented as of this encounter Visit Diagnoses Not on filedocumented in this encounter"
--- OUTSIDE RECORDS SUMMARY | ~2020-06-15 | XMS | Encounter Summary ---
Demographics + + + | Address | [address] | | | [place] [address] | + + + | Home Phone [...] Providers + +------+ + | Care Linux Solaris Administrator Name | Role | Phone | [...] + + | 06/22/ | Telephone | [facility] | Emmanuel Daniel MD | Lab Order | | 2019 | | GASTROENTEROLOGY | [address], [place] | | | | | [address] [place] | [address] [place], [place] | | | | | [address] [place], [place] | [address] | | | | | [address] | | | | | | [phone] | | | +--------+ + + + [...] He wants to have labs ordered at [facility] ut he wants to wait to [...] | | | | | | [place] [address] | | | | | | [phone] | | | | | | | | +--------+ + + + + documented as of this encounter Visit Diagnoses Not on filedocumented in this encounter
--- OUTSIDE RECORDS SUMMARY | ~2020-06-15 | XMS | Encounter Summary ---
Demographics + + + | Address | [address] | | | [place] [address] | + + + | Home Phone [...] Providers + +------+ + | Care Net Technical Architect Name | Role | Phone | [...] W | [address] | Interrogation | | | | [place], | [place], | (Primary Dx); | | | | [place] [address] | [place] [address] | Presence of | | | | [phone] | [phone] | permanent cardiac | | | | [...] Paceart documentation and remote PDF scanned into [employer] for remote interrogation re sults. Data collected [...] | | | | | | [place] [address] | | | | | | [phone] | | | | | | | [...] PDF scanned into | | | [facility] for remote interrogation results. Data collected [...]
--- OUTSIDE RECORDS SUMMARY | ~2020-06-15 | XMS | Encounter Summary ---
Demographics + + + | Address | [address] | | | [place] [address] | + + + | Home Phone [...] Providers + +------+ + | Care Criminal Defense Lawyer Name | Role | Phone | + +------+ + | Michael Amanda DO | PCP | | + +------+ + Encounter Details +--------+ + + + + | Date | Type | Department | Care Team | Description | +--------+ + + + + | 05/11/ | Hospital | [facility] | Conversion | Lumbago; | | 2013 | Encounter | [facility]ICAL [facility]ENTER | Transaction, | Postlaminectomy | | | | CLINICAL DECISION | Provider Unknown | syndrome, cervical | | | | [address] | | region; Cervicalgia | | | | [place], [place] | (Fax) | | | | | [address] | Cesar, | | | | | [phone] | MD Gamaliel | | +--------+ + [...] + + + +---------+ + + | [place]-3 Fatty | CAPS, one capsule by | [...] Note by Meliza Macario RN at 05/11/14 1509 Author: Meliza Macario RN Service: (none) Author Type: Registered Nurse Filed: 05/11/14 1505 Date of Service: 05/11/141504 Status: Signed Supply Chain Project Manager: Meliza Macario RN (Registered Nurse) Pt [...] 1424 Date of Service: 05/11/141422 Status: Signed Supply Chain Project Manager: Heike Mckeon RN (Registered Nurse) Called [...] | | | | | | [place] [address] | | | | | | [phone] | | | | | | | [...] | | | intrathecal use. See the animal shelter supervisor examination for details of the | | | injection. Bone algorithm noncontrast technique with reformatted | | | sagittal and coronal images. Prior study for review : CT discogram | | | from 2004 was used to orient this examination given the transitional | | | anatomy of the lumbosacral junction FINDINGS: Vp Strategic Planning is notable | | | for a [...] for intrathecal use. See | | the animal shelter supervisor examination for details of the injection. Bone algorithm noncontrast | | technique with reformatted sagittal and coronal images. Prior study for review : CT | | discogram from 2004 was used to orient this examination given the transitional anatomy | | of the lumbosacral junction FINDINGS: Vp Strategic Planning is notable for a pacing system. Anterior [...]
--- OUTSIDE RECORDS SUMMARY | ~2020-06-15 | XMS | Encounter Summary ---
Demographics + + + | Address | [address] | | | [place] [address] | + + + | Home Phone [...] Team Providers + +------+ + | Care Intellectual Property Lawyer Name | Role | Phone | + +------+ + PCP | Unavailable | + +------+ + Encounter Details +--------+ + + + + | Date | Type | Department | Care Team | Description | +--------+ + + + + | 11/14/ | [facility] | [facility] | William Hirsch | | | 1999 | Encounter | MED CTR EMERGENCY | MD Cristobal [address] | | | | | CENTER [address] | [address] | | | | | [place] | [place] [address] | | | | | [address] | [phone] | | | | | [phone] | | | +--------+ + + + [...] | | | | | | [place] [address] | | | | | | [phone] | | | | | | | | +--------+ + + + + documented as of this encounter Visit Diagnoses Not on filedocumented in this encounter"
--- OUTSIDE RECORDS SUMMARY | ~2020-06-15 | XMS | Encounter Summary ---
Demographics + + + | Address | [address] | | | [place] [address] | + + + | Home Phone [...] + +------+ + | Care Information Security Engineer Name | Role | Phone | [...] | Telephone | [facility] [place] | [place], | Blood Pressure (Low | | 2017 | | CARDIOLOGY [address] | Janeen FURNACE REPAIR MECHANIC [address] | reading) | | | | [place], | [place], | | | | | [place] [address] | [place] [address] | | | | | [phone] | [phone] | | | | | | | [...] | | | | | | [place] [address] | | | | | | [phone] | | | | | | | | +--------+ + + + + documented as of this encounter Visit Diagnoses Not on filedocumented in this encounter
--- OUTSIDE RECORDS SUMMARY | ~2020-06-15 | XMS | Encounter Summary ---
Demographics + + + | Address | [address] [place] [address] [address] | | | [place] [address] | + + + | Home Phone | | + + + | Preferred Language | Unknown | + + + | Marital Status | | + + + | Baptism Affiliation | Unknown | + + + [...] [place] | | | | | [address] | | + + + + + Care Team Providers + +------+ + | Care Cathodic Protection Technician Name | Role | Phone | [...] Chest pain | Farooq Almaguer, | [address] | | | | | Bradycardia | DO [address] | | | | | Procedures | Yao Booth | [facility] | | | | | | [facility] | Health and | | | | | TRANSTHORACI | [facility] [place] | Healing, | | | | | C | [address] | [address] | | | | | ECHOCARDIOGR | Phone: | [place], [place] | | | | | AM, ADULT | [phone] | [address] | | | | | | Fax: | Phone: | | | | | | [phone] | [phone] | +--------+--------+ + + + + Reason [...] | | | | | | [place] [address] | | | | | | | Phone: | | | | | | | [phone] | | | | | | | Fax: | | | | | | | [phone] | | +--------+--------+ + + + + Encounter Details +--------+---------+ + + + | Date | Type | Department | Care Team | Description | +--------+---------+ + + + | 02/03/ | Office | Cardiology General | Arlette Drew, | Chest pain (Primary | | 2010 | Visit | at [facility] [address] | MD | Dx); Bradycardia; | | | | [facility] for | | Pacemaker | | | | Health and Healing, | | | | | | Building | | | | | | [place], [place] | | | | | | [address] | | | | | | [phone] | | | +--------+---------+ + + + [...] per Dr. Drew's note. Farooq Jamil DO Railway Shunter Clinical product safety manager/ Division of Cardiovascular Medicine asonrussell Yajaira, RN - 02/09/2011 12:59 PM PDT PACEMAKER HISTORY Primary Care Provider: Darion Holden DO Campground Cleaning Attendant: Arlette Drew MD Moe Sanchez is a [...] pacemaker was put at the recommendation of Campground Cleaning Attendant Dr. Singletary from [place]. [place]. Pt. states lala bhatti was put>1 [...] tilt table testing but NA at [facility] May need to involve endocrine and [...] [address] Mailcode: Ch9a [facility], 9th Floor [facility] [address] documented in this en counter Plan of [...] Way Lab) | [facility] | | [facility] [address] | REGIONAL | | [place] [address] | LABORATORY | + + + + + + + + | Performing | Address | City/State/Zipcode | Phone Number | | Organization | | | | + + + + + | [facility] | [address] | [place] [address] | | | LABORATORY | | | [...] 10.0 ug/dl | LABORATORY | | RLB ([address] Lab) | | | [place] [address] | | | [address] [facility] [place] [address] | | + + + + + + + + | Performing | Address | City/State/Zipcode | Phone Number | | Organization | | | | + + + + + | [facility] | [address] | [place] [address] | | | LABORATORY | | | [...] | | | DEPARTMENT | | | FIJIAN | | | OF | | | [...] + + + + + | [facility] DEPARTMENT | [address] | [place] [address] | | | PATHOLOGY | [address] [...] DEPT OF | [address] | [place], [place] | | | CARDIOLOGY | [address] | [address] | | + + + + + [...] DEPT OF | [address] | [place], [place] | | | CARDIOLOGY | [address] | [address] | | + + + + + [...] view image for the detailed interpretation from [employer] results. | CARDIOLOGY | + + + + + + + + | Performing | Address | City/State/Zipcode | Phone Number | | Organization | | | | + + + + + | [facility] DEPT OF | [address] | [place], [place] | | | CARDIOLOGY | [address] | [address] | | + + + + + documented in this encounter Visit Diagnoses + + | Diagnosis | + + | Chest pain - Primary Chest pain, unspecified | + + | Bradycardia Other specified cardiac dysrhythmias | + + | Pacemaker Cardiac pacemaker in situ | + + documented in this encounter
--- OUTSIDE RECORDS SUMMARY | ~2020-06-15 | XMS | Encounter Summary ---
Demographics + + + | Address | [address] | | | [place] [address] | + + + | Home Phone [...] | [facility] | | [...] +------+ + | Care Search Engine Optimization Consultant Name | Role | Phone | + +------+ + | Kirk French MD | PCP | | + +------+ + Reason for Visit + +--------+ + | Reason | Onset | Comments | | | Date | | + +--------+ + | Referral Question | 07/13/ | | | | 2019 | | + +--------+ + Encounter Details +--------+ + + + + | Date | Type | Department | Care Team | Description | +--------+ + + + + | 07/13/ | Telephone | [facility] | Kirk French | Referral Question | | 2019 | | [facility] | MD Eva Guidry | | | | | PRIMARY CARE [address] | | | | | [address] | [place] [address] | | | | | [place], [place] | [phone] | | | | | [address] | | | | | | [phone] | | | +--------+ + + + [...] Miscellaneous Notes Telephone Encounter - Geri Bear Branch Maker - 07/14/2019 4:06 PM PDTCalled and left VM for return call. Electronically signed by Geri Bear Branch Maker at 07/14 4:07 PM PDTTelephone Encounter - eGri Bear Branch Maker - 07/13/2019 5:03 PM PDT----- Message from Shelley Hess sent at 07/12/2019 16:52 PDT ----- Contact: Patient Patient called and has questions regarding an order for Cardio and Pulmonary Rehab at [facility]. He received a call from them today and has no idea where this came fr om. Would like a call back. He also wanted to let you know he had a total right shoulder r edone 06/13/19. Caller: Amilcar Relationship to patient: Patient Please call back at [phone] Can a Detailed VM be left on this number: Yes documented in this encounter Plan of [...] | | | | | | [place] [address] | | | | | | [phone] | | | | | | | | +--------+ + + + + documented as of this encounter Visit Diagnoses Not on filedocumented in this encounter"
--- OUTSIDE RECORDS SUMMARY | ~2020-06-15 | XMS | Encounter Summary ---
Demographics + + + | Address | [address] | | | [place] [address] | + + + | Home Phone [...] Team Providers + +------+ + | Care Chucking Lathe Operator Name | Role | Phone [...] + + | 02/21/ | Office | [facility] | [place], | Coronary artery | | 2019 | Visit | CARDIOLOGY [address] | [address] [place] [address] | disease involving | | | | [place], | [place], | eek coronary | | | | [place] [address] | [place] [address] | artery of eek | | | | [phone] | [phone] | heart without angina | | | [...] of non-critical coronary artery d isease involving eek coronary artery of eek heart without angina pectoris, essential h ypertension, [...] stay active. He enjoys hunting in his [employer]. He has not had any chest pain [...] Preventative health care Coronary artery disease involving eek coronary artery of eek heart without angina pectoris Cannabis abuse, daily [...] 3RD DOSE, CALL 911 100 tablet 3 [place]-3 Fatty Acids (SALMON OIL-1000 PO) CAPS, one capsule by mouth daily twice daily ondansetron (ZOFRAN ODT) 4 mg disintegrating tablet Take 4 mg by mouth. ONE TOUCH DELICA LANCETS [facility] [...] was found Confirmed by ANGELA MARADIAGA MD ([id number]) on 01/03/2019 8:10:39 PM LAB RESULTS reviewed during visit today primarily from [facility]: LIPID Lab Results Component Value [...] BNP 15 01/02/2019 I reviewed records from [facility] for angiogram results on 019 which is summarized in the HPI. RESULTS- I reviewed reports from [facility]: No results found. Left heart catheterization [...] ASSESSMENT: 1. Non-critical Coronary artery disease involving eek coronary artery of eek heart [facility] angina pectoris: A.Normal exercise sestamibi [...] Symptoms with moderate exertion of t he [place] [employer] functional class. Heart failure stage [...] by Dr Juan Diego Gambino at [facility] on 01/30/2013.Patient had spontaneous PVC's fro [...] this chart may have been created with [employer] voice recognition software. Occasi onal wrong-word [...] | | | | | | [place] [address] | | | | | | [phone] | | | | | | | | +--------+ + + + + documented as of this encounter Visit Diagnoses + + | Diagnosis | + + | Coronary artery disease involving eek coronary artery of eek heart without | | angina pectoris - Primary | + + | Symptomatic PVCs Other premature beats | + + | Essential hypertension Unspecified essential hypertension | + + documented in this encounter
--- OUTSIDE RECORDS SUMMARY | ~2020-06-15 | XMS | Encounter Summary ---
Demographics + + + | Address | [address] | | | [place] [address] | + + + | Home Phone [...] Providers + +------+ + | Care Automatic Typewriter Inspector Name | Role | Phone | + +------+ + | Kirk French MD | PCP | | + +------+ + Reason for Visit +--------+--------+ + | Reason | Onset | Comments | | | Date | | +--------+--------+ + | Other | 05/08/ | | | | 2019 | | +--------+--------+ + Encounter Details +--------+ + + + + | Date | Type | Department | Care Team | Description | +--------+ + + + + | 05/08/ | Telephone | [facility] [place] | Emmanuel Daniel MD | Other | | 2019 | | GASTROENTEROLOGY | [address], [place] | | | | | [address] [place] | [address] [place], [place] | | | | | [address] [place], [place] | [address] | | | | | [address] | | | | | | [phone] | | | +--------+ + + + [...] Telephone Encounter - Lisa Pisano RN - 05/10/2019 8:28 AM PDTArrived at ED yeste afternoon (see ED notes when completed - was not yet completed this am; however was giv en Maksimzi for functional diarrhea). Electronically signed by Lisa Pisano RN at 8:30 AM PDTTelephone Encounter - Lisa Pisano RN - 05/09/2019 8:39 AM PDT Patient called pissed off and cursing; he stated he went to [place] [facility] last night with sto mach cramps, nausea; they gave imodium IV; he is now on his day of no food or able to ke ep fluids down; he refuses to call [facility] at this time to find out about his referral status; he also refuses to call his PCP or go to local ED's; he states he needs care now and will co me to for help; advised patient if he comes to our ED he should keep in mind his behavior (before I could finish he disconnected the call). elephone Encounter - Anastacio Bennett - 05/09/2019 8:33 AM PDTName of Caller:Moe Sanchez "Amilcar" Name of Patient:Moe Sanchez "Amilcar" Reason for call: Patient wanted to speak with the clinical staff regarding his IBS. Provider/Nurse: Dr. Daniel / Darryn Call back number:[phone] elephone Encounter - Lisa Bonenr RN - 05/08/2019 2:04 PM PDTReturned call to patient; suggested he conta ct [facility]; provided the toll free number listed from the referral; [phone]. He s tated he was not sure he wanted to go now because it is taking so long; advised it can take a while for referrals to get approved, then paperwork gathered and sent; once received the [facility] reviews and assigns; he will call but he states his cramping medication is n ot working and has gone through 2 rolls of toilet paper since this morning. Advised him I wa s not as familiar with his situation at the moment so could not assist; he is aware Dr. Homer turcios and Darryn are out of the clinic this week; if he is not able to get anywhere with the numb er provided to [facility] he will contact this clinic. elephone Encounter - Anastacio Bennett - 05/08/2019 1:46 PM PDTName of Caller:Moe Sanchez "Amilcar" Name of Patient:Moe Sanchez "Amilcar" Reason for call: Patient called and wanted to know the status of his referral to [facility]. Pham ent stated that has not received a call from them and informed patient that the clinical sta ff re-faxed referral to [facility] on 04/10/19. Patient wanted to speak with our supervisor slate splitting but e was unavailable. Patient didn't have a pen and paper to write her number done. Patient sta kevin that he going to head to the hospital since he in severe pain/IBS. Routing to clinical gena warner. Provider/Nurse: Dr. Daniel/ Darryn Severiano back number: [phone] documented in this [facility] Plan of Treatment +--------+ + + + [...] | | | | | | [place] [address] | | | | | | [phone] | | | | | | | | +--------+ + + + + documented as of this encounter Visit Diagnoses Not on filedocumented in this encounter
--- OUTSIDE RECORDS SUMMARY | ~2020-06-15 | XMS | Encounter Summary ---
Demographics + + + | Address | [address] | | | [place] [address] | + + + | Home Phone [...] Providers + +------+ + | Care Maintenance Mechanic Elevators Name | Role | Phone | + +------+ + | Kirk French MD | PCP | | + +------+ + Encounter Details +--------+ + + + + | Date | Type | Department | Care Team | Description | +--------+ + + + + | 06/15/ | Hospital | C GENERIC IP | Conversion | Pain | | 2018 | Encounter | CONVERSION DEP [address] | Transaction, | | | | | [address] | Provider Unknown | | | | | [place] | [phone] | | | | | [address] | | | | | | [phone] | | | +--------+ + + + [...] + + + +---------+ + + | [place]-3 Fatty | CAPS, one capsule by | [...] | | | | | | [place] [address] | | | | | | [phone] | | | | | | | [...]
--- OUTSIDE RECORDS SUMMARY | ~2020-06-15 | XMS | Encounter Summary ---
Demographics + + + | Address | [address] | | | [place] [address] | + + + | Home Phone [...] Team Providers + +------+ + | Care Lan Administrator Name | Role | Phone | [...] | | | | [place] | [phone] | | | | | [address] | | | | | | [phone] | | | +--------+ + + + [...] + + + +---------+ + + | [place]-3 Fatty | CAPS, one capsule by | [...] | | | | | | [place] [address] | | | | | | [phone] | | | | | | | [...] Note | + + | Kevin, Rad Imani - 07/05/2019 4:32 AM PDT This is a non-reportable procedure | | without a radiologist report and isused for image storage only | + + documented in this encounter Visit Diagnoses + + | Diagnosis | + + | Pain Generalized pain | + + documented in this encounter"
--- OUTSIDE RECORDS SUMMARY | ~2020-06-15 | XMS | Encounter Summary ---
Demographics + + + | Address | [address] | | | [place] [address] | + + + | Home Phone [...] Providers + +------+ + | Care Ultrasound Coordinator Name | Role | Phone | [...] | 06/06/ | Telephone | [facility] [place] | [place], | Other (Cardiac | | 2019 | | CARDIOLOGY [address] | Janeen, FACILITY MAINTENANCE TECHNICIAN [address] | Clearance) | | | | [place], | [place], | | | | | [place] [address] | [place] [address] | | | | | [phone] | [phone] | | | | | | | [...] 06/14/2019 8:53 AM Sarthak note faxed to , arlette Galeas. ...........................................Magi Farr RN on 0 [...] RN - 06/06/2019 12:36 PM PDTStephenidi from [facility] calls to josh boyce cardiac clearance for this patient scheduled to have Left shoulder total arthroplasty o n 06/13/19. Routing to Janeen as she is seeing patient this afternoon in clinic. Please fax chart note to Gudelia at [phone].............................................Kasie Ashley RN on 06/06/19 at 12:38 documented [...] | | | | | | [place] [address] | | | | | | [phone] | | | | | | | | +--------+ + + + + documented as of this encounter Visit Diagnoses Not on filedocumented in this encounter"
--- OUTSIDE RECORDS SUMMARY | ~2020-06-15 | XMS | Encounter Summary ---
Demographics + + + | Address | [address] | | | [place] [address] | + + + | Home Phone [...] Providers + +------+ + | Care Pharmacy Affairs Assistant Name | Role | Phone | [...] + + | 03/07/ | Telephone | [facility] | Daljit Singletary, | Results ([facility]) | | 2020 | | CARDIOLOGY [address] | MD [address] [place] | | | | | [place], | [place], | | | | | [place] [address] | [place] [address] | | | | | [phone] | [phone] | | | | | | | [...] to monthly remote monitor. New schedule with monthl y dates starting in March mailed to [...] | | | | | | [place] [address] | | | | | | [phone] | | | | | | | | +--------+ + + + + documented as of this encounter Visit Diagnoses Not on filedocumented in this encounter"
--- OUTSIDE RECORDS SUMMARY | ~2020-06-15 | XMS | Encounter Summary ---
Demographics + + + | Address | [address] | | | [place] [address] | + + + | Home Phone [...] Team Providers + +------+ + | Care Bd Special Education Teacher Name | Role | Phone [...] [place], | | | | | | [place] [address] | | | | | | [phone] | | | +--------+ + + + [...] | | | | | | [place] [address] | | | | | | [phone] | | | | | | | | +--------+ + + + + documented as of this encounter Visit Diagnoses Not on filedocumented in this encounter"
--- OUTSIDE RECORDS SUMMARY | ~2020-06-15 | XMS | Encounter Summary ---
Demographics + + + | Address | [address] | | | [place] [address] | + + + | Home Phone [...] Team Providers + +------+ + | Care Puff Ironer Name | Role | Phone | [...] | initial encounter; | | | | [facility] | | Elevated blood | | | | [address] | | pressure reading; | | | | [phone] | | Numbness and | | | [...] + + + +---------+ + + | [place]-3 Fatty | CAPS, one capsule by | [...] 10/29/172129 Date of Service: 10/29/171410 Status: Signed Survey Data Technician: Tor Reynolds MD (Physician) [facility] Department of Emergency Medicine 2:24 PM History [...] 1 disorder (HCC) CAD (coronary artery disease), [place] artery transplanted heart Cannabis abuse Chronic neck [...] Laterality Date ABDOMINAL SURGERY adhesions removed APPENDECTOMY [facility] CARDIAC CATHETERIZATION HARDWARE REMOVAL KNEE ARTHROSCOPY Bilateral LASER ABLATION x3 PACEMAKER INSERTION SHOULDER SURGERY Bilateral Rotator Cuff Repairs SPINAL FUSION 4 Cervical fusions; [place] SPINAL FUSION 2 Lumbar Fusions; [place], [place] SPINE SURGERY Prior to Admission [...] education: 12 Occupational History Disabled Retired from [employer] Social History Main Topics Smoking status: [...] No sign o f infection to suggest CHILD CARE DIRECTOR infection or PNA or UTI as cause [...] needed [address] [facility] [address] [facility] Emergency Department Emergency Medicine If symptoms worsen 888 [facility] [address] [facility] Orthopedics [place] [facility] As needed [address] [facility] [id number] Discharge Medications: Discharge Medication List as of [...] 10/29/171402 Date of Service: 10/29/171400 Status: Signed Survey Data Technician: Jessica Arellano RN (Registered Nurse) 2 patient [...] | 10/30/ | Office | Cardiology | [place], | | | 2020 | Visit | | PARISA [address] | | | | | | [place], | | | | | | [place] [address] | | | | | | [phone] | | | | | | | [...]
--- OUTSIDE RECORDS SUMMARY | ~2020-06-15 | XMS | Encounter Summary ---
Demographics + + + | Address | [address] | | | [place] [address] | + + + | Home Phone [...] Team Providers + +------+ + | Care Decorator Consultant Name | Role | Phone | [...] + + | 07/27/ | Telephone | [facility] | Emmanuel Daniel MD | Medication | | 2019 | | GASTROENTEROLOGY | [address], [place] | Recommendations | | | | [address] [place] | [address] [place], [place] | | | | | [address] [place], [place] | [address] | | | | | [address] | | | | | | [phone] | | | +--------+ + + + [...] encounter Miscellaneous Notes Telephone Encounter - Kaylynn Copleand RN - 07/28/2019 1:02 PM PDTLeft message [...] | | | | | | [place] [address] | | | | | | [phone] | | | | | | | | +--------+ + + + + documented as of this encounter Visit Diagnoses Not on filedocumented in this encounter"
--- OUTSIDE RECORDS SUMMARY | ~2020-06-15 | XMS | Encounter Summary ---
Demographics + + + | Address | [address] | | | [place] [address] | + + + | Home Phone [...] Team Providers + +------+ + | Care Analytics Developer Name | Role | Phone | + +------+ + | Kirk French MD | PCP | | + +------+ + Encounter Details +--------+---------+ + + + | Date | Type | Department | Care Team | Description | +--------+---------+ + + + | 09/26/ | Office | [facility] | Kirk French | Weight loss (Primary | | 2018 | Visit | GERALDINE Guidry MD [address] | Dx); Bipolar | | | | [facility] [address] | affective disorder, | | | | [address] | [place] [address] | remission status | | | | [place], [place] | [phone] | unspecified (HCC); | | | | [address] | | Mixed anxiety | | | | [phone] | | depressive disorder; | | | [...] wasn't treated. 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; DiaTech Oncologytronic Peptic ulcer disease Premature ventricular contraction Preventative [...] CV LHC; Surgeon: Daljit Singletary MD; Location: [facility] CV LAB CARDIAC CATHERIZATION N/A 01/25/2019 Procedure: CV Cor Angio; Surgeon: Daljit Singletary MD; Location: [facility] CV LAB COLONOSCOPY N/A 12/24/2017 Procedure: COLONOSCOPY; Surgeon: Emamnuel Daniel MD; Location: [facility] MEDICAL PROCEDURE UNIT COLONOSCOPY N/A 01/05/2019 Procedure: COLONOSCOPY; Surgeon: Emmanuel Daniel MD; Location: [facility] MEDICAL PROCEDURE UNIT EGD 12/24/2017 HARDWARE REMOVAL KNEE ARTHROSCOPY Bilateral KNEE SURGERY 2004 meniscus-right LAMINECTOMY 1992 L3-4 LUMBAR DISCECTOMY 1992 L3-4 LUMBAR FUSION 01/2011 6 spine fusions NECK SURGERY NECK SURGERY 08/10/2012 Fusion. [place] PACEMAKER PLACEMENT 06/14/2009 Medtronic ROTATOR CUFF REPAIR Bilateral 03/22/2013 SINUS SURGERY 1998 SPINAL FUSION STOMACH SURGERY UPPER GASTROINTESTINAL ENDOSCOPY N/A 12/24/2017 Procedure: EGD; Surgeon: Emmanuel Daniel MD; Location: [facility] MEDICAL PROCEDURE UNIT UPPER GASTROINTESTINAL ENDOSCOPY N/A 01/05/2019 Procedure: EGD; Surgeon: Emmanuel Daniel MD; Location: [facility] MEDICAL PROCEDURE UNIT URETEROSCOPY Left 04/13/2019 Procedure: Cystoscopy, Left ureteroscopy with laser lithotripsy, Left ureteral stent place ment; Surgeon: Matthew Uriarte MD; Location: [facility] MAIN OR VASECTOMY Social History Socioeconomic History [...] ONE TABLET UNDER THE TONGUE EVERY 5 OK NUTES NEEDED FOR CHEST PAIN 250 tablet 0 [place]-3 Fatty Acids (SALMON OIL-1000 PO) CAPS, one capsule by mouth daily twice daily ondansetron (ZOFRAN ODT) 4 mg disintegrating tablet Take 4 mg by mouth every 8 hours as needed for Nausea. ONE TOUCH DELICA LANCETS [facility] [...] Chemistry Component Value Date/Time NA 139 06/02/2019 190 K 3.7 06/02/2019 190 CL 106 06/02/2019 190 CO2 25 06/02/2019 190 GLU 94 06/02/2019 190 BUN 15 06/02/2019 190 CREA 0.92 06/02/2019 190 ANIONGAP 8 06/02/2019 190 Component Value Date/Time CALCIUM 9.6 06/02/2019 190 ALKPHOS 76 06/02/2019 190 AST 35 (H) 06/02/20191906 ALT 27 06/02/2019 190 TOTALPROTEIN 7.0 06/02/2019 190 ALBUMIN 4.7 06/02/2019 190 BILITOT 0.7 06/02/2019 190 Lab Results Component Value Date EGFR >60 11/25/2018 GLUF 83 11/25/2018 GLOB 3.3 11/25/2018 Lab Results Component Value Date WBC 6.3 06/02/2019 HGB 16.3 06/02/2019 HCT 46.4 06/02/2019 MCV 97.5 06/02/2019 PLT 169 06/02/2019 No results found for: MIPRRGIA71 No results found for: FOLATE No results [...] multiple ER visits Going again to [facility] Already followed by [facility] [...] dollars a month. We will defer to [place], perhaps to have some sort of a [...] Viberzi and will otherwise defer t o [place]. documented in th is encounter Plan of [...] | | | | | | [place] [address] | | | | | | [phone] | | | | | | | [...]
--- OUTSIDE RECORDS SUMMARY | ~2020-06-15 | XMS | Encounter Summary ---
Demographics + + + | Address | [address] | | | [place] [address] | + + + | Home Phone [...] Providers + +------+ + | Care Business Director Name | Role | Phone | [...] + + | 09/01/ | [facility] | [place], | Ascending thoracic | | 2015 | Visit | CARDIOLOGY [address] | PAR[place] [address] | aortic aneurysm | | | | [place], | [place], | ([facility]) (Primary Dx); | | | | [place] [address] | [place] [address] | Coronary artery | | | | [phone] | [phone] | disease involving | | | | | | [place] coronary | | | | | | artery of [place] | | | | | | heart [...] of non-critical coronary artery d isease involving [place] coronary artery of [place] heart without angina pectoris, essential h ypertension, [...] episode of chest pain while nelly ng [facility], so he took some sublingual nitroglycerin [...] Preventative health care Coronary artery disease involving [place] coronary artery of [place] heart without angina pectoris Cannabis abuse, daily [...] by mouth every evening 90 tablet 3 [facility] Natural Products (OSTEO BI-FLEX/5-LOXIN ADVANCED PO) Take [...] 3rd dose, call 911 100 tablet 3 [place]-3 Fatty Acids (SALMON OIL-1000 PO) CAPS, one [...] PLTEX 129* 05/12/2016 I reviewed records from [facility] for office visit on 06/2016 whi [...] He is in class II of the [place] Heart Ass 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 On physical examination there are no signs of fluid overload. The plan will be to lose weight, modify portion control, start exercising, limit sodium in take and we will start losartan 25 mg once a day with a close monitoring of blood pressure. 2. Non-critical Coronary artery disease involving [place] coronary artery of [place] heart [facility] angina pectoris: A. Normal exercise sestamibi stress [...] cannot completely be ruled out. [facility] 12/25/13, shows non critical coronary artery [...] ventricular arrhythmia performed by Dr. Gambino at [facility] on 01/30/2013. Patient had spontaneous PVCs [...] to go back in 3 days to [place] for an attempt of ablation under general [...] this chart may have been created with Therapy[employer] voice recognition software. Occasi onal wrong-word or [...] W | | | | | | [place], | | | | | | [place] [address] | | | | | | [phone] | | | | | | | [...] + + | Coronary artery disease involving [place] coronary artery of [place] heart without | | angina pectoris | + + | Essential hypertension with goal blood pressure less than 130/80 | + + | Hyperlipidemia, mixed Mixed hyperlipidemia | + + documented in this encounter
--- OUTSIDE RECORDS SUMMARY | ~2020-06-15 | XMS | Encounter Summary ---
Demographics + + + | Address | [address] | | | [place] [address] | + + + | Home Phone [...] Team Providers + +------+ + | Care Containers Sales Representative Name | Role | Phone [...] + + | 08/29/ | Office | [facility] | [place], | Essential | | 2015 | Visit | CARDIOLOGY [address] | PAR[place] [address] | hypertension | | | | [place], | [place], | (Primary Dx); | | | | [place] [address] | [place] [address] | Coronary artery | | | | [phone] | [phone] | disease involving | | | | | | [place] coronary | | | | | [...] was advised to come back to the [place] to furt her his evaluation. He was seen in the emergency room at [facility] on 08/23/20 15 and the ER physician reviewed his chart saying that there were [facility] both of them are clear of DVT but reveal some venous insufficiency. Today, arian ent tells me that he started having swelling in both his feet [facility] He had extensive traveling. He went [...] going to be traveling back to the [facility]. Today, patient states that his leg swelling [...] Preventative health care Coronary artery disease involving [place] coronary artery without angina pectoris Cannabis abuse, [...] 3rd dose, call 911 100 tablet 3 [place]-3 Fatty Acids (SALMON OIL-1000 PO) CAPS, one capsule by mouth daily twice daily ONE TOUCH DELICA LANCETS [facility] Check [...] Daily. to reduce urinary frequenc y Lot #[id number], exp 07/2016 (Patient taking differently: Take 8 mg by mouth Daily. PATIENT STA YOSELIN NO LONGER TAKING THIS MEDICATION. STATED ON 08/29/2015. to reduce urinary frequency Lot #[id number], exp 07/2016) 21 capsule 0 Specialty Vitamins [...] PLTEX 163 07/26/2014 I reviewed records from [facility] for emergency department visit o n [...] brought reports to the emergency room at [facility] and according to the not es they [...] to go back in 3 days to [place] for an attempt of ablation under general [...] dizziness. He is in class I-II of [place] Heart Association functional class. T here are [...] this chart may have been created with Sparxent voice recognition software. Occasi onal wrong-word or [...] | | | | | | [place] [address] | | | | | | [phone] | | | | | | | [...] the | | | | PDT | [place] coronary | results section. | | | [...] HISTORY: DVT. COMPARISON: None. TECHNIQUE: Compression | [facility] | | sonography was performed from the groin through the popliteal fossa | [facility] | | in both lower extremities.. [...] conveyed to the ordering provider, by the health education teacher, | | | immediately following the exam. Dictated and Signed by: Emmanuel Bay | | MD Edwige Electronically signed: 08/29/2015 3:25 PM | | + + + + + | Procedure Note | + + | Kalpesh Brown Results In - 08/29/2015 3:28 PM [...] to the ordering provider, by the | |health education teacher, immediately following the exam. | | | | | |Dictated and Signed by: Emmanuel Gibbons MD | | Electronically signed: 08/29/2015 3:25 PM | + + + + + + + | Performing | Address | City/State/Zipcode | Phone Number | | Organization | | | | + + + + + | [facility] | [address] | [place] | [phone] | | [facility] | | [address] | | | - IMAGING | | [...] MD | | | | | | ([id number]) on 08/29/2015 | | | | | [...] + + | Coronary artery disease involving [place] coronary artery without angina pectoris | + + | DVT (deep venous thrombosis), bilateral | + + documented in this encounter
--- OUTSIDE RECORDS SUMMARY | ~2020-06-15 | XMS | Encounter Summary ---
Demographics + + + | Address | [address] | | | [place] [address] | + + + | Home Phone [...] Team Providers + +------+ + | Care Temporary Receptionist Name | Role | Phone | [...] W | PARISA [place] [address] | mixed | | | | [place], | [place], | | | | | [place] [address] | [place] [address] | | | | | [phone] | [phone] | | | | | | | [...] | | | | | | [place] [address] | | | | | | [phone] | | | | | | | | +--------+ + + + + documented as of this encounter Visit Diagnoses + + | Diagnosis | + + | Hyperlipidemia, mixed Mixed hyperlipidemia | + + documented in this encounter"
--- OUTSIDE RECORDS SUMMARY | ~2020-06-15 | XMS | Encounter Summary ---
Demographics + + + | Address | [address] | | | [place] [address] | + + + | Home Phone [...] Team Providers + +------+ + | Care Objective C Developer Name | Role | Phone | + +------+ + | Kirk French MD | PCP | | + +------+ + Reason for Visit +--------+--------+ + | Reason | Onset | Comments | | | Date | | +--------+--------+ + | Other | 01/24/ | | | | 2019 | | +--------+--------+ + Encounter Details +--------+ + + + + | Date | Type | Department | Care Team | Description | +--------+ + + + + | 01/24/ | Telephone | [facility] [place] | Daljit Singletary, | Other | | 2018 | | CARDIOLOGY [address] | [address] | | | | | [place], | [place], | | | | | [place] [address] | [place] [address] | | | | | [phone] | [phone] | | | | | | | [...] this encounter Miscellaneous Notes Telephone Encounter - Toyin Bello RN - 01/24/2019 11:34 AM PSTPatient called and left a message on voiceStyleUpil stating he has chest pain daily, with sweating, nausea and dizziness every day. Returned call to Amilcar and he relayed the above information and states Janeen MCCAULEY is aware of his symptoms and wanted him to track the episodes. His blood pressu re has been within range. He has an angiogram scheduled tomorrow 01/25/[address] Brasher. ..... ......................................TOYIN BELLO RN on 01/24/19 at 11:42 documented in this e ncounter Plan of [...] | | | | | | [place] [address] | | | | | | [phone] | | | | | | | | +--------+ + + + + documented as of this encounter Visit Diagnoses Not on filedocumented in this encounter"
--- OUTSIDE RECORDS SUMMARY | ~2020-06-15 | XMS | Encounter Summary ---
Demographics + + + | Address | [address] | | | [place] [address] | + + + | Home Phone [...] Team Providers + +------+ + | Care Wellness Program Coordinator Name | Role | [...] + + | Authorized | Specialty | Pain Medicine | Diagnoses | Prabhakarman, | LYNX | | | Services | | Left ankle | Kirk Guidry, | [facility] | | | Required | | pain, | [address] | [address] | | | | | unspecified | [address] | [address] | | | | | chronicity | [address] | [place], | | | | | Low back | [place], [place] | [place] [address] | | | | | pain, | [address] | Phone: | | | | | unspecified | Phone: | [phone] | | | | | back pain | [phone] | Fax: | | | | | laterality, | Fax: | [phone] | | | | | unspecified | [phone] | | | | | | chronicity, | | | | | | | unspecified | | | | | | | whether | | | | | | | sciatica | | | | | | | present | | | | | | | Neuralgia | | | + + + + + + + Reason for Visit + +--------+ + | Reason | Onset | Comments | | | Date | | + +--------+ + | Referral | 06/11/ | | | | 2019 | | + +--------+ + Encounter Details +--------+ + + + + | Date | Type | Department | Care Team | Description | +--------+ + + + + | 06/11/ | Telephone | [facility] | Kirk French | Referral | | 2020 | | [facility] | MD Brea [address] | | | | | PRIMARY CARE [address] | | | | | [address] | [place] [address] | | | | | [place], [place] | [phone] | | | | | [address] | | | | | | [phone] | | | +--------+ + + + [...] Miscellaneous Notes Telephone Encounter - Geri Bear, Aluminum Siding Applicator - 06/11/2020 4:44 PM PDTPlease sig n orders. elepho ne Encounter - Opal He - 06/11/2020 4:26 PM PDTPatient is requesting a new referr al to pain management. He does not want to continue with Dr. Cai. He states he had a reactio n when he was placed on Suboxone as [...] he may be wanting to discuss medication options. [phone] (home) Opal He documented in this enco unter Plan of [...] | | | | | | [place] [address] | | | | | | [phone] | | | | | | | | +--------+ + + + + + + +--------+ + + | Name | Type | Priori | Associated Diagnoses | Order Schedule | | | | ty | | | + + +--------+ + + | Ambulatory referral | Outpatient | Routin | Left ankle pain, | Ordered: 06/11/2020 | | to Pain Clinic | Referral | e | unspecified | | | | | | chronicity Low back | | | | | | pain, unspecified | | | | | | back pain | | | | | | laterality, | | | | | | unspecified | | | | | | chronicity, | | | | | | unspecified whether | | | | | | sciatica present | | | | | | Neuralgia | | + + +--------+ + + documented as of this encounter Visit Diagnoses + + | Diagnosis | + + | Left ankle pain, unspecified chronicity - Primary | + + | Low back pain, unspecified back pain laterality, unspecified chronicity, unspecified | | whether sciatica present | + + | Neuralgia Neuralgia, neuritis, and radiculitis, unspecified | + + documented in this encounter"
--- OUTSIDE RECORDS SUMMARY | ~2020-06-15 | XMS | Encounter Summary ---
Demographics + + + | Address | [address] | | | [place] [address] | + + + | Home Phone [...] Team Providers + +------+ + | Care Clinique Counter Manager Name | Role | Phone | [...] + | 09/30/ | Telephone | [facility] | Anshumarianatesha Daljit, | Other ([place] | | 2018 | | CARDIOLOGY [address] | remote) | | | | [place], | [place], | | | | | [place] [address] | [place] [address] | | | | | [phone] | [phone] | | | | | | | [...] voice message that we have not received [employer] remote pacemaker report this week. Requested to [...] | | | | | | [place] [address] | | | | | | [phone] | | | | | | | | +--------+ + + + + documented as of this encounter Visit Diagnoses Not on filedocumented in this encounter"
--- OUTSIDE RECORDS SUMMARY | ~2020-06-15 | XMS | Encounter Summary ---
Demographics + + + | Address | [address] | | | [place] [address] | + + + | Home Phone [...] Team Providers + +------+ + | Care Canadian Bacon Tier Name | Role | Phone | + +------+ + | Kirk French MD | PCP | | + +------+ + Reason for Visit +--------+--------+ + | Reason | Onset | Comments | | | Date | | +--------+--------+ + | Other | 09/04/ | | | | 2019 | | +--------+--------+ + Encounter Details +--------+ + + + + | Date | Type | Department | Care Team | Description | +--------+ + + + + | 09/04/ | Telephone | [facility] [place] | Emmanuel Daniel MD | Other | | 2019 | | GASTROENTEROLOGY | [address], [place] | | | | | [address] [place] | [address] [place], [place] | | | | | [address] [place], [place] | [address] | | | | | [address] | | | | | | [phone] | | | +--------+ + + + [...] Telephone Encounter - Kaylynn Copeland RN - 09/07/2019 11:10 AM [facility]t [facility]. he states he had the "worse cr amping of his life. He received fluids. Cramping has eased up. He states Imaging and labs were done. He has appt at [facility] 09/28/19. He will take his records from [facility] and from [facility]. e juan m Encounter - Anastacio Bennett - 09/04/2019 10:14 AM PDTName of Caller: Skyler Sanchez "Amilcar" Name of Patient: Moe Sanchez "Amilcar" Reason for call: Patient called and stated that his IBS medication is not helping. Patient stated that he has been like this for five days now. Routing to clinical staff to advise. Provider/Nurse: Dr. Daniel / Darryn Call back number: [phone] [facility] Plan of Treatment +--------+ + + + [...] | | | | | | [place] [address] | | | | | | [phone] | | | | | | | | +--------+ + + + + documented as of this encounter Visit Diagnoses Not on filedocumented in this encounter
--- OUTSIDE RECORDS SUMMARY | ~2020-06-15 | XMS | Encounter Summary ---
Demographics + + + | Address | [address] | | | [place] [address] | + + + | Home Phone [...] Providers + +------+ + | Care Harness Cutter Name | Role | Phone | + +------+ + | Kirk French MD | PCP | | + +------+ + Encounter Details +--------+ + + + + | Date | Type | Department | Care Team | Description | +--------+ + + + + | 01/05/ | Orders Only | [facility] | Emmanuel Daniel MD | | | 2019 | | [facility] | [address] [place], [place] | | | | | PATHOLOGY [address] | [address] [facility] | | | | | [address] [place], [place] | [address] | | | | | [address] | | | | | | [phone] | | | +--------+ + + + [...] | | | | | | [place] [address] | | | | | | [phone] | | | | | | | [...] | | | (atherosclerotic heart disease of [place] coronary artery without | | | angina [...] chronic or | | | microscopic colitis. [facility]:C3NR GROSS DESCRIPTION: A. The | | | specimen, labeled "[place], duodenal biopsy" is received in formalin | | | and consists of seven 0.1-0.5 cm lin fragments. Entirely submitted in | | | (A1). B. The specimen, labeled "[place], right colon" is received | | | in formalin and consists of six 0.2-0.3 cm lin fragments. Entirely | | | submitted in (B1). C. The specimen, labeled "[place], left colon" | | | is received in formalin and consists of six 0.2-0.3 cm lin-pink | | | fragments. Entirely submitted in (C1). am:LEWIS:portillo PERFORMING | | | LABORATORY: The technical component was performed by [facility] | | [facility], [address] [facility] [address] (Accounting Recruiter: | | | Kailey Stafford MD; CLIA# [id number]). Professional interpretation was | | | performed by [facility], [facility], [address] | | | [place] [address] (Accounting Recruiter: Ishaan | | | Anthony Dao; CLIA#: [id number]). Diagnostician: Ishaan Dao | | | Pathologist [...]
--- OUTSIDE RECORDS SUMMARY | ~2020-06-15 | XMS | Encounter Summary ---
Demographics + + + | Address | [address] | | | [place] [address] | + + + | Home Phone [...] Team Providers + +------+ + | Care Specifications Writer Name | Role | Phone | [...] visit | CARDIOLOGY [address] | [address] [place] | reprogramming/check | | | | [place], | [place], | DO NOT DELETE | | | | [place] [address] | [place] [address] | (Primary Dx); | | | | [phone] | [phone] | Sinoatrial node | | | | [...] | | | | | | [place] [address] | | | | | | [phone] | | | | | | | [...]
--- OUTSIDE RECORDS SUMMARY | ~2020-06-15 | XMS | Encounter Summary ---
Demographics + + + | Address | [address] | | | [place] [address] | + + + | Home Phone [...] Providers + +------+ + | Care Hse Advisor Name | Role | Phone | [...] CARDIOLOGY [address] | MD [address] | Interrogation | | | | [place], | [place], | (Primary Dx); | | | | [place] [address] | [place] [address] | Pacemaker; | | | | [phone] | [phone] | Sinoatrial node | | | | [...] Paceart documentation and remote PDF scanned into [employer] for remote interrogation re sults. Data collected [...] | | | | | | [place] [address] | | | | | | [phone] | | | | | | | [...] Performed At | + + + | Dajlit | [facility] | | MD Gemini 01/15/2020 [...] | Performing | Address | City/State[facility] | Phone Number | | Organization | [...]
--- OUTSIDE RECORDS SUMMARY | ~2020-06-15 | XMS | Encounter Summary ---
Demographics + + + | Address | [address] | | | [place] [address] | + + + | Home Phone [...] Providers + +------+ + | Care Regulatory And Compliance Technician Name | Role | Phone | [...] Description | +--------+--------+ + + + | 06/08/ | Refill | [facility] [place] | Kirk French | Medication Refill | | 2020 | | GASTROENTEROLOGY | MD Brea [address] | | | | | [address] [place] | [address] | | | | | [address] [place], [place] | [place] [address] | | | | | [address] | [phone] | | | | | [phone] | | | +--------+--------+ + + + [...] Miscellaneous Notes Telephone Encounter - Geri Bear Health And Safety Representative - 06/10/2020 9:02 AM PDTrefillElec tronically signed by Geri Bear Health And Safety Representative at 06/10/2020 9:02 AM PDTdocujean pierre villarreal this encounter Plan of [...] | | | | | | [place] [address] | | | | | | [phone] | | | | | | | | +--------+ + + + + documented as of this encounter Visit Diagnoses Not on filedocumented in this encounter"
--- OUTSIDE RECORDS SUMMARY | ~2020-06-15 | XMS | Encounter Summary ---
Demographics + + + | Address | [address] | | | [place] [address] | + + + | Home Phone [...] Providers + +------+ + | Care Collar Baster Jumpbasting Name | Role | Phone | + [...] | | | Left | | Matthew Stcay | | | | | ureteral | | MD Nicole LEONARDO | | | | | calculus | | [address] [place] | | | | | Procedures | | [place], [place] | | | | | [place] | | [address] Phone: | | | | | CYSTO/URETER | | [phone] | | | | | O | | Fax: | | | | | W/LITHOTRIPS | | [phone] | | | | | Y &INDWELL [...] + + | 04/13/ | Hospital | [facility] | Matthew Uriarte | Preoperative | | 2019 | Encounter | [facility] | Dahl, MD [address] | clearance (Primary | | | | [address] | [address] [place], [place] | Dx); Left ureteral | | | | [place], [place] | [address] | calculus; Kidney | | | | [address] | | stones | | | | [phone] | | | +--------+ + + + [...] Care Everywhere.Kidney Stones, Treating: Ureteroscopic Stone Removal (Greenlandic)Stents, Ureteral (Greenlandic)documented in this encounter Medications at Time of [...] + + + +---------+ + + | [place]-3 Fatty | CAPS, one capsule by | [...] | | | | | | | nikolski coronary | | | | | | | artery of nikolski | | | | | | | [...] signed by: Matthew Uriarte MD, 04/13/2019 8:09 [facility] Jaron Galaviz MD - 04/07/2019 9:45 AM [...] CV LHC; Surgeon: Daljit Singletary MD; Location: [facility] CV LAB CARDIAC CATHERIZATION N/A 01/25/2019 Procedure: CV Cor Angio; Surgeon: Daljit Singletary MD; Location: [facility] CV LAB COLONOSCOPY N/A 12/24/2017 Procedure: COLONOSCOPY; Surgeon: Emmanuel Daniel MD; Location: [facility] MEDICAL PROCEDURE UNIT COLONOSCOPY N/A 01/05/2019 Procedure: COLONOSCOPY; Surgeon: Emmanuel Daniel MD; Location: [facility] MEDICAL PROCEDURE UNIT EGD 12/24/2017 [...] [facility] MEDICAL PROCEDURE UNIT UPPER GASTROINTESTINAL ENDOSCOPY N/A 01/05/2019 Procedure: EGD; Surgeon: Emmanuel Daniel MD; Location: [facility] MEDICAL PROCEDURE UNIT VASECTOMY Family [...] EVERY DAY, Disp: 90 tablet, Rfl: 3 [facility] Natural Products (OSTEO BI-FLEX/5-LOXIN ADVANCED PO), Take [...] 911, Disp: 100 ta blet, Rfl: 3 [place]-3 Fatty Acids (SALMON OIL-1000 PO), CAPS, one capsule by mouth daily twice daily , Disp: , Rfl: ondansetron (ZOFRAN ODT) 4 mg disintegrating tablet, Take 4 mg by mouth., Disp: , Rfl: ONE TOUCH DELICA LANCETS [facility], Check glucose as needed for hypoglycemia, Disp: [...] have not thoroughly proofread this note, and merchandise coordinator errors are very likely to occur. CC: Kirk French MD documented in this encounter Miscellaneous Notes Op Note - Matthew Uriarte MD - 04/13/2019 1:03 PM PDTOperative Note Pt. Name/Age/: Moe Sanchez 59 y.o. 1960 Med. Record Number: [id number] Date of admission: 04/13/2019 Date of Operation/Procedure: 04/13/2019 Preoperative Diagnosis: Kidney stone Postoperative Diagnosis: same Surgeon: Matthew Uriatre MD Manager Music(s): none Anesthesia Provider(s): Anesthesiologist: Jay Benjamin MD [...] leave strings on the stent. A 6 Welsh variable length stent was then placed over [...] Electronically Signed by: Matthew Uriarte, 04/13/2019 13:04 [facility] documented in this encounter Plan of Treatment [...] [address] | | | | | | [place], | | | | | | [place] [address] | | | | | | [phone] | | | | | | | [...] [facility] | | | | | | at:[phone]. | | | | + + + [...] [address], | REFERENCE LAB | | [place], [place] [id number] Escort Car Driver: Yeny Rios MD, Phone: | ARSH CASTANON | | [phone] | | + + + + + + + + | Performing | Address | City/State/Zipcode | Phone Number | | Organization | | | | + + + + + | REFERENCE LAB | [address] | [place], [place] | [phone] | | [facility] | [facility] | [address] | | + + + + + [...] [address] | [place] | [phone] | | [facility] | | [address] | | | - LABORATORY | | [...] [address] | [place] | [phone] | | [facility] | | [address] | | | - LABORATORY | | [...] [address] | [place] | [phone] | | [facility] | | [address] | | | - LABORATORY | | [...] + | [facility] | [address] | [place] | [phone] | | [facility] | | [address] | | | - LABORATORY | | [...] mL/min/1.73m2 | [facility] | | | G[facility]NA[facility] | RATE,ESTIMATED | | MEDICAL | | | | mL/min/1.41r3Kpqp than | | CENTER - | | [...] [address] | [place] | [phone] | | [facility] | | [address] | | | - LABORATORY | | | | + + + + + documented in this encounter Visit Diagnoses + + | Diagnosis | + + | Left ureteral calculus - Primary Calculus of ureter | + + | Preoperative clearance Preoperative examination, unspecified | + + | Kidney stones Calculus [...] day), First | | | dose on Atlia 04/13/19 at 1400, | | | Start 8 hours after pre-op dose., | | | Post-op/Phase II | | + +---+ | | | + +---+ | albuterol 2.5 mg/3 mL nebulizer | | | solution 2.5 mg 2.5 mg, | | | Nebulization, ONCE PRN, Wheezing, | | | Starting [facility] 04/13/19 at 0917, | | | [...] | | | | | | | dowsmv-wbo-kofuo use of at least | | | [...] | | | | PRN, Nausea, Starting [facility] 04/13/19 | | AM PDT | [...]
--- OUTSIDE RECORDS SUMMARY | ~2020-06-15 | XMS | Encounter Summary ---
Demographics + + + | Address | [address] | | | [place] [address] | + + + | Home Phone [...] Providers + +------+ + | Care Java Manager Name | Role | Phone | + +------+ + | Kirk French MD | PCP | | + +------+ + Reason for Visit + +--------+ + | Reason | Onset | Comments | | | Date | | + +--------+ + | Appointment | 11/26/ | Needs rescheduled | | | 2018 | | + +--------+ + Encounter Details +--------+ + + + + | Date | Type | Department | Care Team | Description | +--------+ + + + + | 11/26/ | Telephone | [facility] [place] | Silvia, | Appointment (Needs | | 2017 | | CARDIOLOGY [address] | [place] [address] | rescheduled) | | | | [place], | [place], | | | | | [place] [address] | [place] [address] | | | | | [phone] | [phone] | | | | | | | [...] Notes Telephone Encounter - Yajaira Park - 11/29/2017 9:06 AM PSTPatient called back to resched [facility] appointment. Patient is now scheduled to come in on 12/22/17. elephone Encounter - Heidi Tejeda - 11/26/2017 4 :49 PM PSTLeft voicemail for pt to call back regarding 12/02/17 appt with MISHA. Needs to be re scheduled as she will be out of the office.Electronically signed by Heidi Tejeda at 03/2018 4:51 PM PSTdocumented in this encounter Plan of [...] | | | | | | [place] [address] | | | | | | [phone] | | | | | | | | +--------+ + + + + documented as of this encounter Visit Diagnoses Not on filedocumented in this encounter"
--- OUTSIDE RECORDS SUMMARY | ~2020-06-15 | XMS | Encounter Summary ---
Demographics + + + | Address | [address] | | | [place] [address] | + + + | Home Phone [...] Team Providers + +------+ + | Care Verification Lead Name | Role | Phone | + +------+ + | Michael Amanda DO | PCP | | + +------+ + Encounter Details +--------+ + + + + | Date | Type | Department | Care Team | Description | +--------+ + + + + | 11/03/ | Emergency | [facility] | Eliel Calzada, | Palpitations; | | 2013 - | | MEDICAL CENTER | MD [address] | Atypical chest pain | | | | EMERGENCY CENTER | [place], [place] | | | 11/04/ | | [address] | [address] | | | 2013 | | [place], [place] | | | | | | [address] | | | | | | [phone] | | | +--------+ + + + [...] 11/04/1447 Date of Service: 11/04/1446 Status: Signed Railcar Carpenter: Blade Rizo RN (Registered Nurse) No changes evident in pt status, pt is resting quietly waiting for test results. Blade Rizo RN 11/04/1447 onver fatemeh Transaction, Provider Unknown - 11/03/2014 11:41 PM PST ED Notes by Blade Rizo RN at 11/03/142340 Author: Blade Rizo RN Service: (none) Author Type: Registered Nurse Filed: 11/03/142340 Date of Service: 11/03/142340 Status: Signed Railcar Carpenter: Blade Rizo RN (Registered Nurse) Calm, resting quietly, awaiting test results. Call light in reach. Blade Rizo RN 11/03/142340 onver fatemeh Transaction, Provider Unknown - 11/03/2014 11:13 PM PST ED Notes by Blade Rizo RN at 11/03/142312 Author: Blade Rizo RN Service: (none) Author Type: Registered Nurse Filed: 11/03/142312 Date of Service: 11/03/142312 Status: Signed Railcar Carpenter: Blade iRzo RN (Registered Nurse) Dr. Calzada at bedside. Blade Rizo RN 11/03/142312 odine Eliel grady MD - 11/03/2014 11:10 PM PST ED Provider Notes by Eliel Calzada DO at 11/03/142309 Author: Eliel Calzada DO Service: (none) Author Type: Physician Filed: 11/05/14811 Date of Service: 11/03/142309 Status: Signed Railcar Carpenter: Eliel Calzada DO (Physician) [facility] Department of Emergency Medicine 11/03/2014 History of [...] history. 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 He states his heavy duty mechanic is in [place]. Pt reports he last had an angiogram 6 months ago at [facility]. Pt reports he has anxiety but [...] p rocess. 1:50 AM. Reviewed records from [facility]. Records show that the patient does not [...] make sure he follows up with his heavy duty mechanic this week. Filed Vitals: 11/03/14 2305 11/03/14 [...] si gns I obtain the records from [facility]. The angiogram was performed on 12/25/2013. Selective [...] Procedure Component Value Ref Range Date/Time Magnesium [[id number]] Collected: 11/03/142309 Order Status: Completed Updated: 11/04/147 MAGNESIUM 2.1 1.7 - 2.4 mg/dL Phosphorus [[id number]] Collected: 11/03/142309 Order Status: Completed Updated: 11/04/147 PHOSPHORUS 3.4 2.3 - 4.8 mg/dL TSH [[id number]] Collected: 11/03/142309 Order Status: Completed Updated: 11/04/14 0008 TSH 3.20 0.45 - 5.10 uIU/mL Cardiac Panel [[id number]] (Abnormal) Collected: 11/03/142309 Order Status: Completed Updated: [...] ng/mL CK-MB Index 2.8 POC cardiac troponin [[id number]] Collected: 11/03/14 2315 Order Status: Completed Updated: [...] Documented by Eliel Calzada DO (11/04/14 01:12:44, [facility], Emergency Medicine) Chest X-ray: Left anterior chest wall device with two wires, in position similar to previous radiographs, normal heart size, normal mediastinum and great vessels, no fractures or bony lesions, Normal soft tissue. Views: PA and lateral, Good technique Preliminary Interpretation by Eliel Calzada DO 2306 Atrial paced rhythm with prolonged rhythm at 84 BPM Normal [place] and [place] Normal QRS and [place] Normal QT and QTc Normal ST/T without [...] e valuation [address] [facility] [address] [facility] Emergency Department If symptoms worsen [address] [facility] [address] PARISA Russell [address] [facility] [address] Michael Amanda DO Discharge Medications: Discharge Medication [...] W | | | | | | [place], | | | | | | [place] [id number] | | | | | | [phone] | | | | | | | [...] CHEST 2 VIEW FRONTAL | | AND RSXAACF5611/03/2014 11:56 PM History: 54 years. Male. Acute [...] EXTERNAL | | | | performed at [facility];888 | | LAB | | | | [address];[place] | | | | | | [address] | | | | + + + + + -+ | Non- | 4.97Comment: Testing | 4.20 - 5.70 | EXTERNAL | | | Red Blood | performed at [facility];888 | M/uL | LAB | | | Cells | [address];[place] | | | | | Counted | [address] | | | | + + + + + -+ | Hemoglobin | 16.8Comment: Testing | 13.2 - 17.0 | EXTERNAL | | | | performed at [facility];888 | g/dL | LAB | | | | [address];[place] | | | | | | [address] | | | | + + + + + -+ | Hematocrit, | 48.2Comment: Testing | 39.0 - 50.0 % | EXTERNAL | | | POC | performed at [facility];[address] | | LAB | | | | [address];[place] | | | | | | [address] | | | | + + + + + -+ | MCV | 97.1Comment: Testing | 80.0 - 100.0 fl | EXTERNAL | | | | performed at [facility];[address] | | LAB | | | | [address];[place] | | | | | | [address] | | | | + + + + + -+ | MCH | 33.9Comment: Testing | 27.0 - 34.0 pg | EXTERNAL | | | | performed at [facility];[address] | | LAB | | | | [address];[place] | | | | | | [address] | | | | + + + + + -+ | MCHC | 34.9Comment: Testing | 32.0 - 35.5 | EXTERNAL | | | | performed at [facility];888 | g/dL | LAB | | | | [address];[place] | | | | | | [address] | | | | + + + + + -+ | RDW-CV | 42.4Comment: Testing | 37 - 53 fl | EXTERNAL | | | | performed at [facility];[address] | | LAB | | | | [address];[place] | | | | | | [address] | | | | + + + + + -+ | Platelet | 143 (L)Comment: Testing | 150 - 400 K/uL | EXTERNAL | | | Count | performed at [facility];888 | | LAB | | | Plasma | [address];[place] | | | | | | [address] | | | | + + + + + -+ | MPV | 9.0Comment: Testing | fl | EXTERNAL | | | | performed at [facility];[address] | | LAB | | | | [address];[place] | | | | | | [address] | | | | + + + + + -+ | Differentia | AUTOMATEDComment: | | EXTERNAL | | | l Type | Testing performed at | | LAB | | | | [facility];[address] | | | [address];[place] [address] | | | | + + + + + -+ | % Segmented | 61.6Comment: Testing | % | EXTERNAL | | | | performed at [facility];888 | | LAB | | | Neutrophils | [address];[place] | | | | | | [address] | | | | + + + + + -+ | % | 27.8Comment: Testing | % | EXTERNAL | | | Lymphocytes | performed at [facility];[address] | | LAB | | | | [address];[place] | | | | | | [address] | | | | + + + + + -+ | % Monocytes | 8.7Comment: Testing | % | EXTERNAL | | | | performed at [facility];[address] | | LAB | | | | [address];[place] | | | | | | [address] | | | | + + + + + -+ | % | 0.8Comment: Testing | % | EXTERNAL | | | Eosinophils | performed at [facility];[address] | | LAB | | | | [address];[place] | | | | | | [address] | | | | + + + + + -+ | % Basophils | 1.1Comment: Testing | % | EXTERNAL | | | | performed at [facility];[address] | | LAB | | | | [address];[place] | | | | | | [address] | | | | + + + + + -+ | Absolute | 5.4Comment: Testing | 1.9 - 7.4 K/uL | EXTERNAL | | | Segmented | performed at [facility];888 | | LAB | | | Neutrophils | [address];[place] | | | | | | [address] | | | | + + + + + -+ | Absolute | 2.4Comment: Testing | 1.0 - 3.9 K/uL | EXTERNAL | | | Lymphocytes | performed at [facility];[address] | | LAB | | | | [address];[place] | | | | | | [address] | | | | + + + + + -+ | Absolute | 0.8Comment: Testing | 0 - 0.8 K/uL | EXTERNAL | | | Monocytes | performed at [facility];[address] | | LAB | | | | [address];[place] | | | | | | [address] | | | | + + + + + -+ | Absolute | 0.1Comment: Testing | 0 - 0.5 K/uL | EXTERNAL | | | Eosinophils | performed at [facility];[address] | | LAB | | | | [address];[place] | | | | | | [address] | | | | + + + + + -+ | Absolute | 0.1Comment: Testing | 0 - 0.1 K/uL | EXTERNAL | | | Basophils | performed at [facility];888 | | LAB | | | | [address];[place] | | | | | | [address] | | | | + + + + + -+ | RBC | SLIDE SCANNED, AGREES | | EXTERNAL | | | Morphology | WITH AUTOMATED | | LAB | | | | RESULTS.Comment: Testing | | | | | | performed at [facility];[address] | | | | | | [address];[place] | | | | | | [address] | | | | + + + + + -+ | Na | 140Comment: Testing | 135 - 143 | EXTERNAL | | | | performed at [facility];888 | mmol/L | LAB | | | | [address];[place] | | | | | | [address] | | | | + + + + + -+ | K | 3.9Comment: Testing | 3.5 - 4.9 | EXTERNAL | | | | performed at [facility];888 | mmol/L | LAB | | | | [address];[place] | | | | | | [address] | | | | + + + + + -+ | Cl | 107Comment: Testing | 99 - 109 mmol/L | EXTERNAL | | | | performed at [facility];[address] | | LAB | | | | [address];[place] | | | | | | [address] | | | | + + + + + -+ | CO2 | 28Comment: Testing | 23 - 32 mmol/L | EXTERNAL | | | | performed at [facility];[address] | | LAB | | | | [address];[place] | | | | | | [address] | | | | + + + + + -+ | Anion Gap | 9Comment: Testing | 5 - 20 mmol/L | EXTERNAL | | | | performed at [facility];[address] | | LAB | | | | [address];[place] | | | | | | [address] | | | | + + + + + -+ | Glucose, | 97Comment: Testing | 65 - 99 mg/dL | EXTERNAL | | | Fasting | performed at [facility];[address] | | LAB | | | | [address];[place] | | | | | | [address] | | | | + + + + + -+ | BUN | 14Comment: Testing | 8 - 25 mg/dL | EXTERNAL | | | | performed at [facility];[address] | | LAB | | | | [address];[place] | | | | | | [address] | | | | + + + + + -+ | Creatinine | 0.98Comment: Testing | 0.70 - 1.30 | EXTERNAL | | | | performed at [facility];888 | mg/dL | LAB | | | | [address];[place] | | | | | | [address] | | | | + + + + + -+ | BUN/Creatin | 14Comment: Testing | | EXTERNAL | | | ine Ratio | performed at [facility];[address] | | LAB | | | | [address];[place] | | | | | | [address] | | | | + + + + + -+ | Calcium | 8.8Comment: Testing | 8.5 - 10.2 | EXTERNAL | | | | performed at [facility];888 | mg/dL | LAB | | | | [address];[place] | | | | | | [address] | | | | + + + + + -+ | Protein, | 6.9Comment: Testing | 6.3 - 8.2 g/dL | EXTERNAL | | | Total | performed at [facility];[address] | | LAB | | | | [address];[place] | | | | | | [address] | | | | + + + + + -+ | Albumin | 3.7Comment: Testing | 3.6 - 5.0 g/dL | EXTERNAL | | | | performed at [facility];[address] | | LAB | | | | [address];[place] | | | | | | [address] | | | | + + + + + -+ | Globulin | 3.2Comment: Testing | 1.3 - 4.9 g/dL | EXTERNAL | | | | performed at [facility];[address] | | LAB | | | | [address];[place] | | | | | | [address] | | | | + + + + + -+ | A/G Ratio | 1.2Comment: Testing | 1.0 - 2.4 | EXTERNAL | | | | performed at [facility];[address] | | LAB | | | | [address];[place] | | | | | | [address] | | | | + + + + + -+ | Bilirubin | 0.9Comment: Testing | 0.1 - 1.5 mg/dL | EXTERNAL | | | Total | performed at [facility];[address] | | LAB | | | | [address];[place] | | | | | | [address] | | | | + + + + + -+ | ALP, | 60Comment: Testing | 35 - 115 U/L | EXTERNAL | | | External | performed at [facility];[address] | | LAB | | | | [address];[place] | | | | | | [address] | | | | + + + + + -+ | AST | 22Comment: Testing | 10 - 45 U/L | EXTERNAL | | | | performed at [facility];[address] | | LAB | | | | [address];[place] | | | | | | [address] | | | | + + + + + -+ | ALT | 37Comment: Testing | 10 - 65 U/L | EXTERNAL | | | | performed at [facility];[address] | | LAB | | | | [address];[place] | | | | | | [address] | | | | + + + [...] | | | | | | at [facility];[address] | | | | | [address];[place] [address] | | | | + + + + + -+ | CK, Total | 103Comment: Testing | 55 - 400 U/L | EXTERNAL | | | | performed at [facility];888 | | LAB | | | | [address];[place] | | | | | | [address] | | | | + + + [...] | | | | | performed at [facility];[address] | | | | | | [address];[place] | | | | | | [address] | | | | + + + + + -+ | aPTT, | 26Comment: Testing | 23 - 32 seconds | EXTERNAL | | | Patient | performed at [facility];[address] | | LAB | | | | [address];[place] | | | | | | [address] | | | | + + + + + -+ | CK-MB | 2.9Comment: Testing | 0.5 - 3.6 ng/mL | EXTERNAL | | | | performed at [facility];[address] | | LAB | | | | [address];[place] | | | | | | [address] | | | | + + + [...] EXTERNAL | | | | performed at [facility];888 | uIU/mL | LAB | | | | [address];[place] | | | | | | [address] | | | | + + + [...] EXTERNAL | | | | performed at [facility];[address] | | LAB | | | | [address];[place], [place] | | | | | | [address] | | | | + + + [...] EXTERNAL | | | | performed at [facility];[address] | | LAB | | | | [address] [facility];[place], [place] | | | | | | [address] | | | | + + + [...] | | | | | ONLY, -COMPUTER ([id number]), | | | | | | city editor Michelle Butcher | | | | | | (29) on 11/04/2014 | | | | | | 6:28:13 AM | | | | + + + + + + + + | Specimen | + + | | + + + + + | Narrative | Performed At | + + + | [facility] | EXTERNAL LAB | + [...]
--- OUTSIDE RECORDS SUMMARY | ~2020-06-15 | XMS | Encounter Summary ---
Demographics + + + | Address | [address] | | | [place] [address] | + + + | Home Phone [...] Team Providers + +------+ + | Care Gem Technician Name | Role | Phone | [...] Refill | | 2013 | | [facility] | DO [address] | | | | | [address] | [place] | | | | | [place], [place] | [address] | | | | | [address] | | | | | | [phone] | | | +--------+--------+ + + + [...] | | | | | | [place] [address] | | | | | | [phone] | | | | | | | | +--------+ + + + + documented as of this encounter Visit Diagnoses Not on filedocumented in this encounter"
--- OUTSIDE RECORDS SUMMARY | ~2020-06-15 | XMS | Encounter Summary ---
Demographics + + + | Address | [address] | | | [place] [address] | + + + | Home Phone [...] Providers + +------+ + | Care Auto Glass Worker Name | Role | Phone | [...] 2015 | | CARDIOLOGY [address] | INFORMATION TECH [address] | reprogramming/check | | | | [place], | [place], [place] | DO NOT DELETE | | | | [place] [address] | [address] | (Primary Dx); | | | | [phone] | | Pacemaker - | | | [...] | | | | | | [place] [address] | | | | | | [phone] | | | | | | | [...] | | 2. Coronary artery disease involving chickahominy indian tribe coronary artery of | | | chickahominy indian tribe heart without angina pectoris I25.10 414.01 ECHO [...]
--- OUTSIDE RECORDS SUMMARY | ~2020-06-15 | XMS | Encounter Summary ---
Demographics + + + | Address | [address] [place] [address] [address] | | | [place] [address] | + + + | Home Phone [...] [place] | | | | | [address] | | + + + + + [...] | | Center at [facility] [address] | Gastroenterology | Gastroenterology | | | | [address] [facility] | | | | | | for Health and | | | | | | [address], [address] | | | | | | [place], [place] | | | | | | [address] | | | | | | [phone] | | | +--------+ + + + [...]
--- OUTSIDE RECORDS SUMMARY | ~2020-06-15 | XMS | Encounter Summary ---
Demographics + + + | Address | [address] | | | [place] [address] | + + + | Home Phone [...] Providers + +------+ + | Care Security Public Safety Officer Name | Role | Phone [...] + | 08/06/ | Telephone | [facility] | Geri Angel, | Other (issues with | | 2014 | | CARDIOLOGY [address] | TRANSPORTATION SECURITY OFFICER [address] | edema and chest | | | | [place], | [place], [place] | pain) | | | | [place] [address] | [address] | | | | | [phone] | | | +--------+ + + + [...] | | | | | | [place] [address] | | | | | | [phone] | | | | | | | | +--------+ + + + + documented as of this encounter Visit Diagnoses Not on filedocumented in this encounter"
--- OUTSIDE RECORDS SUMMARY | ~2020-06-15 | XMS | Encounter Summary ---
Demographics + + + | Address | [address] | | | [place] [address] | + + + | Home Phone [...] Providers + +------+ + | Care Associate Financial Advisor Name | Role | Phone | [...] | 04/24/ | Telephone | [facility] [place] | Geri Angel, | Appointment | | 2014 | | CARDIOLOGY [address] | BROADBAND ENGINEER [address] | | | | | [place], | [facility] [place] [facility], [place] | | | | | [place] [address] | [address] | | | | | [phone] | | | +--------+ + + + [...] n 06-12-15@800w/kailey and @830w/gaby. Patient is from [place]. Therefore he might prefer one in the afternoon elephone Encounter - Nereida Patterson ra - 05/10/2015 2:54 PM PDTCalled patient to re-schedule his appointment to add a d evice check with [place]. I found one on 06-12-15@800w/kailey and @830w/gaby. Patient is from [place]. Therefore he might prefer one in the [...] | | | | | | [place] [address] | | | | | | [phone] | | | | | | | | +--------+ + + + + documented as of this encounter Visit Diagnoses Not on filedocumented in this encounter
--- OUTSIDE RECORDS SUMMARY | ~2020-06-15 | XMS | Encounter Summary ---
Demographics + + + | Address | [address] | | | [place] [address] | + + + | Home Phone [...] Providers + +------+ + | Care Knife Grinder Name | Role | Phone | [...] | | Incontinence | [address] [place] | [place] | | | | | | [place] | [place] | | | | | | [address] | [address] Phone: | | | | | | Phone: | [phone] | | | | | | [phone] | Fax: | | | | | | Fax: | [phone] | | | | | | [phone] | | +--------+ + + + + [...] | diurnal enuresis | | | | [place], [place] | [place], [place] | (Primary Dx); BPH | | | | [address] | [address] | with | | | | [phone] | | obstruction/lower | | | | [...] he has undergone 6 spine fusion surgeries. H e states that the surgeon in [place] who performed his neck surgery is no longer practicing a nd was apparently disciplined and had his license revoked by the [facility]. He has us ed marijuana for [...] APNEA CONDS CLASSIFIED ELSEWHERE (12/15/2010); Ulcerative colitis (HCC); Ches t pain; SINUS BRADYCARDIA; HEPATITIS B; PUD; FATTY LIVER DISEASE; SUBSTANCE ABUSE, MULTIPLE; Preventative health care (06/26/2013); Bladder troubles; Tuberculosis; Anginal pain (HCC); St roke (HCC); Prostate troubles; and Neurological disorder. Past Surgical [...] needed for Chest pain. 25 tablet 12 [place]-3 Fatty Acids (SALMON OIL-1000 PO) CAPS, one [...] increased lordosis. In the interval since prior 2012 exam, posterior pedicle screw and paris fixation [...] Date/Time: 04/22/2012 16:56 Transcribed Date/Time: 04/22/2012 17:32 Business Analysis Consultant: <Electronically Signed by Jama Solis MD> 04/23/12 [...] Date/Time: 04/23/2012 10:54 Transcribed Date/Time: 04/23/2012 11:06 Business Analysis Consultant: <Electronically Signed by Jama Solis MD> 04/24/12 0779 IMPRESSION: 1. Nocturnal and diurnal enuresis. I [...] still believe that the recommendations from [facility] neurosurgeon, Dr. Demarco, on 03/13/2014 would [...] have not thoroughly proofread this note, and naphthalene operator helper erro rs may occur. CC: Kirk French MD documented in this en counter Procedure Notes ONBASE SCAN [facility] - 12/04/2014 12:00 AM PSTAssociated Order(s): IMAGING REPORT - EXTERNAL SC AN documented in this encount er Miscellaneous Notes Addendum Note - Kira Espinoza RN - 12/05/2014 9:52 AM PST Addended by: BECCA ESPINOZA on: 12/05/2014 09:52 Modules accepted: Orders iscellaneous - ONBASE SCAN [facility] - 12/04/2014 12:00 AM PSTElectronically signed by teresa, [facility] at 5 12:23 PM PSTMiscellaneous - [facility] - 12/04/2014 12:00 AM PSTElectronically kamaljit d by teresa [facility] at 12/29/2014 12:23 PM PSTdocumented in this encounter Plan of [...] | | | | | | [place] [address] | | | | | | [phone] | | | | | | | [...] 1.001 - 1.030 | | | | [place], | | | | | | [facility], [...]
--- OUTSIDE RECORDS SUMMARY | ~2020-06-15 | XMS | Encounter Summary ---
Demographics + + + | Address | [address] | | | [place] [address] | + + + | Home Phone [...] Team Providers + +------+ + | Care Drug Safety Physician Name | Role | Phone | [...] [address] | | | | [place], | [place], | | | | | [place] [address] | [place] [address] | | | | | [phone] | [phone] | | | | | | | [...] | | | | | | [place] [address] | | | | | | [phone] | | | | | | | [...] Resulting Agency Comment | + + | [facility] | + + + +---------+ + [...] Resulting Agency Comment | + + | [facility] | + + + +---------+ + [...] Agency Comment | + + | [facility] | + + + +---------+ + [...] Resulting Agency Comment | + + | [facility] | + + + +---------+ [...] Resulting Agency Comment | + + | [facility] | + + + +---------+ + [...] Resulting Agency Comment | + + | [facility] | + + + +---------+ + [...] Agency Comment | + + | [facility] | + + + +---------+ + [...] Resulting Agency Comment | + + | [facility] | + + + +---------+ [...] Resulting Agency Comment | + + | [facility] | + + + +---------+ + [...] Resulting Agency Comment | + + | [facility] | + + + +---------+ + [...] Resulting Agency Comment | + + | [facility] | + + + +---------+ [...] Resulting Agency Comment | + + | [facility] | + + + +---------+ + [...] Resulting Agency Comment | + + | [facility] | + + + +---------+ + [...] Resulting Agency Comment | + + | [facility] | + + + +---------+ + [...] Resulting Agency Comment | + + | [facility] | + + + +---------+ + [...] Agency Comment | + + | [facility] | + + + +---------+ + [...] Resulting Agency Comment | + + | [facility] | + + + +---------+ + [...] Resulting Agency Comment | + + | [facility] | + + + +---------+ + [...]
--- OUTSIDE RECORDS SUMMARY | ~2020-06-15 | XMS | Encounter Summary ---
Demographics + + + | Address | [address] | | | [place] [address] | + + + | Home Phone [...] Phone | + + +---------+ + | Naidnevarsha Kingsley | ECON | Unknown | | [...] + +--------+ + | Medication Refill | 06/28/ | | | | 2012 | | + +--------+ + Encounter Details +--------+--------+ + + + | Date | Type | Department | Care Team | Description | +--------+--------+ + + + | 06/28/ | Refill | [facility] | Michael Amanda, | Medication Refill | | 2012 | | MEDICINE GUNTER | DO [address] | | | | | [address] | [place] | | | | | [place], [place] | [address] | | | | | [address] | | | | | | [phone] | | | +--------+--------+ + + + [...] Telephone Encounter - Omaira Bedoya RN - 07/17/2013 8:43 AM PDTTalked with russell Trammell to fill quantity of 6 with 3 refills 13 8:45 AM PDTTelephone Encounter - Omaira Bedoya RN - 07/11/2013 9:10 AM PDTAttempted t o call patient again Left message to call back Saw patient has appointment on 07/12 with youElectronically signed by Omaira Bedoya RN at 0 07/11/2013 9:11 AM PDTTelephone Encounter - Omaira Bedoya RN - 06/29/2013 1:48 PM PDTCall ed patient, Left message to call back elephone Encounter - Michael Amanda DO - 06/28/2013 10:25 PM PDTNeed more information. Has been taking this medication for outbreaks only or does he take it daily for suppression ? elephone Encounter - Omaira Bedoya RN - 06/28/2013 1:36 PM PDTPatient last seen 06/26 No protocol Looks like it was last filled by Dr. Holden Old instructions were take one tablet by mouth twice daily for three days and once daily th ere after So I did take 1 tablet daily (is that what you want?) Ok to refill? documented in this enc [...] | | | | | | [place] [address] | | | | | | [phone] | | | | | | | | +--------+ + + + + documented as of this encounter Visit Diagnoses Not on filedocumented in this encounter"
--- OUTSIDE RECORDS SUMMARY | ~2020-06-15 | XMS | Encounter Summary ---
Demographics + + + | Address | [address] | | | [place] [address] | + + + | Home Phone [...] Team Providers + +------+ + | Care Continuity Reader Name | Role | Phone | + +------+ + | Kirk French MD | PCP | | + +------+ + Reason for Visit +--------+--------+ + | Reason | Onset | Comments | | | Date | | +--------+--------+ + | Triage | 12/19/ | chronic IBS | | | 2020 | | +--------+--------+ + Encounter Details +--------+ + + + + | Date | Type | Department | Care Team | Description | +--------+ + + + + | 12/19/ | Telephone | [facility] | Kirk French | Triage (chronic IBS) | | 2020 | | [facility] | MD [address] | | | | | [facility] | | | | | [address] | [place] [address] | | | | | [place], [place] | [phone] | | | | | [address] | | | | | | [phone] | | | +--------+ + + + [...] this encounter Miscellaneous Notes Telephone Encounter - NunoAnh, RN - 12/19/2019 11:25 AM PSTPatient contacted clinic w ith concern about chronic IBS. He states he has been in and out of [facility] for his chronic IBS. He states h e has been having rectal bleeding. He has a new GI at [facility] and is scheduled for further stud ies next week. He states the upper caser at [facility] advised him to contact PCP. Abdoul nt reports the last 3 days he has been having pure dark blood with clots and bright red bloo d as well multiple times per day. He reports abdominal cramps as well. He states he even ble eds between bowel movements. Per Adult Telephone Protocols 4th Edition by Miguel Felix MD, FACEP advised patient re turn to ED to be evaluated. Informed patient provider is out of clinic this week and will re turn next week. Advised to follow up if needed next week after seeing GI. He verbalized unde rstanding of this. elephone Encounter - Jigna Vela - 12/19/2019 11:02 AM PSTFred, is calling regarding Triage (Chronic IVF ) and would like a call back. Additional Call Details: Patient is requesting to speak with the nurse regarding his chron ic IVF that he is diagnosed with and that he is in and out of the hospital 1-2 times per mario watson Please call patient back at [phone]. If this is a symptom based call, was patient offered triage? Not Applicable If this is a symptom based call and you were unable to immediately transfer the call to a lorraine bellamy health safety instructor was caller made aware that if [...] | | | | | | [place] [address] | | | | | | [phone] | | | | | | | | +--------+ + + + + documented as of this encounter Visit Diagnoses Not on filedocumented in this encounter"
--- OUTSIDE RECORDS SUMMARY | ~2020-06-15 | XMS | Encounter Summary ---
Demographics + + + | Address | [address] | | | [place] [address] | + + + | Home Phone [...] Team Providers + +------+ + | Care Inter Com Installer Name | Role | Phone | [...] [address] | | | | | [place], | [place], | | | | | [place] [address] | [place] [address] | | | | | [phone] | [phone] | | | | | | | [...] | | | | | | [place] [address] | | | | | | [phone] | | | | | | | [...]
--- OUTSIDE RECORDS SUMMARY | ~2020-06-15 | XMS | Encounter Summary ---
Demographics + + + | Address | [address] [place] [address] [address] | | | [place] [address] | + + + | Home Phone | | + + + | Preferred Language | Unknown | + + + | Marital Status | | + + + | Restoration Affiliation | Unknown | + + + [...] [place] | | | | | [address] | | + + + + + Care Team Providers + +------+ + | Care Foot Cutter Name | Role | Phone | [...] | | 2019 | | Center at [facility] [address] | MD [address] | | | | | [address] | [place], [place] | | | | | for Health and | [address] | | | | | [facility], [facility] 2 | [phone] | | | | | [place], [place] | | | | | | [address] | | | | | | [phone] | | | +--------+ + + + [...]
--- OUTSIDE RECORDS SUMMARY | ~2020-06-15 | XMS | Encounter Summary ---
Demographics + + + | Address | [address] | | | [place] [address] | + + + | Home Phone [...] Team Providers + +------+ + | Care Hairspring Cutter Name | Role | Phone | + +------+ + PCP | Unavailable | + +------+ + Encounter Details +--------+ + + + + | Date | Type | Department | Care Team | Description | +--------+ + + + + | 11/12/ | [facility] | [facility] | | | | 1994 | Encounter | MED CTR GENERIC OP | | | | | | CONV DEPT [address] | | | | | | [place], | | | | | | [place] [address] | | | | | | [phone] | | | +--------+ + + + [...] | | | | | | [place] [address] | | | | | | [phone] | | | | | | | | +--------+ + + + + documented as of this encounter Visit Diagnoses Not on filedocumented in this encounter"
--- OUTSIDE RECORDS SUMMARY | ~2020-06-15 | XMS | Encounter Summary ---
Demographics + + + | Address | [address] | | | [place] [address] | + + + | Home Phone [...] Team Providers + +------+ + | Care Display Specialist Name | Role | Phone | [...] [place], [place] | | | | | [place] | | [id number] Phone: | | | | | CYSTO/URETER | | [phone] | | | | | O | | Fax: | | | | | W/LITHOTRIPS | | [phone] | | | | | Y &INDWELL [...] + + | 04/13/ | Hospital | [facility] | Matthew Uriarte | Preoperative | | 2019 | Encounter | MED CTR OR INTRA OP | Dahl, MD [address] | clearance (Primary | | | | [address] | [address] [place], [place] | Dx); Left ureteral | | | | [place] | [address] | calculus; Kidney | | | | [address] | | stones | | | | [phone] | | | +--------+ + + + [...] Care Everywhere.Kidney Stones, Treating: Ureteroscopic Stone Removal (Citizen [place])Stents, Ureteral (Citizen Of [place])documented in this encounter Medications at Time of [...] + + + +---------+ + + | [place]-3 Fatty | CAPS, one capsule by | [...] | | | | | | | lummi coronary | | | | | | | artery of lummi | | | | | | | [...] signed by: Matthew Uriarte MD, 04/13/2019 8:09 [facility] Jaron Galaviz MD - 04/07/2019 [...] CV LHC; Surgeon: Daljit Singletary MD; Location: [facility] CV LAB CARDIAC CATHERIZATION N/A 01/25/2019 Procedure: CV Cor Angio; Surgeon: Daljit Singletary MD; Location: [facility] CV LAB COLONOSCOPY N/A 12/24/2017 Procedure: COLONOSCOPY; Surgeon: Emmanuel Daniel MD; Location: [facility] MEDICAL PROCEDURE UNIT COLONOSCOPY N/A 01/05/2019 Procedure: COLONOSCOPY; Surgeon: Emmanuel Daniel MD; Location: [facility] MEDICAL PROCEDURE UNIT EGD 12/24/2017 HARDWARE [...] Procedure: EGD; Surgeon: Emmanuel Daniel MD; Location: [facility] MEDICAL PROCEDURE UNIT UPPER GASTROINTESTINAL ENDOSCOPY N/A 01/05/2019 Procedure: EGD; Surgeon: Emmanuel Daniel MD; Location: [facility] MEDICAL PROCEDURE UNIT VASECTOMY Family History: [...] 90 tablet, Rfl: 3 [facility] (OSTEO BI-FLEX/5-LOXIN ADVANCED PO), Take [...] 911, Disp: 100 ta blet, Rfl: 3 [place]-3 Fatty Acids (SALMON OIL-1000 PO), CAPS, one [...] have not thoroughly proofread this note, and mining consultant errors are very likely to occur. CC: Kirk French MD documented in this encounter Miscellaneous Notes Op Note - Matthew Uriarte MD - 04/13/2019 1:03 PM PDTOperative Note Pt. Name/Age/: Moe Sanchez 59 y.o. 1960 Med. Record Number: [id number] Date of admission: 04/13/2019 Date of Operation/Procedure: 04/13/2019 Preoperative Diagnosis: Kidney stone Postoperative Diagnosis: same Surgeon: Matthew Uriarte MD Energy Audit Advisor(s): none Anesthesia Provider(s): Anesthesiologist: Jay Benjamin MD [...] leave strings on the stent. A 6 Portuguese variable length stent was then placed over [...] Electronically Signed by: Matthew Uriarte, 04/13/2019 13:04 [facility] documented in this encounter Plan [...] | | | | | | [place], | | | | | | [place] [address] | | | | | | [phone] | | | | | | | [...] [facility] | | | | | | at:[phone]. | | | | + + + [...] [address], | REFERENCE LAB | | [place], [place] [id number] Waste/Materials Exchange Specialist: Yeny Rios MD, Phone: | ARSH CASTANON | | [phone] | | + + + + + + + + | Performing | Address | City/State/Zipcode | Phone Number | | Organization | | | | + + + + + | REFERENCE LAB | [address] | [place], [place] | [phone] | | [facility] | [facility] | [address] | | + + + + + [...] [address] | [place] | [phone] | | [facility] | | [address] | | | - LABORATORY | | [...] [address] | [place] | [phone] | | [facility] | | [address] | | | - LABORATORY | | [...] [address] | [place] | [phone] | | [facility] | | [address] | | | - LABORATORY | | [...] + | [facility] | [address] | [place] | [phone] | | [facility] | | [address] | | | - LABORATORY | | [...] mL/min/1.73m2 | [facility] | | | [facility] | RATE,ESTIMATED | | MEDICAL | | | | mL/min/1.33e7Mxmz than | | CENTER - | | [...] [address] | [place] | [phone] | | [facility] | | [address] | | | - LABORATORY | | [...] ONCE PRN, Wheezing, | | | Starting [facility] 04/13/19 at 0917, | | | For [...] | | | | | | | tqznvp-hgc-uwubo use of at least | | | [...] | | | | PRN, Nausea, Starting [facility] 04/13/19 | | AM PDT | | [...]
--- OUTSIDE RECORDS SUMMARY | ~2020-06-15 | XMS | Encounter Summary ---
Demographics + + + | Address | [address] | | | [place] [address] | + + + | Home Phone [...] Providers + +------+ + | Care Order Filler Name | Role | Phone | [...] | | | | Sinoatrial | Jose, EVENT SALES ASSISTANT | [address] | | | | | node | [address] | [place], | | | | | dysfunction | [place] | [place] | | | | | (HCC) | [place], [place] | [address] | | | | | Coronary | [address] | Phone: | | | | | artery | Phone: | [phone] | | | | | disease | [phone] | Fax: | | | | | involving | Fax: | [phone] | | | | | wrangell | [phone] | | | | | | coronary | | | | | | | artery of | | | | | | | wrangell heart | | | | | | [...] | | | | | | Complete [place] | | | | | | | ECHO HEART | | | | | | | [place] | | | | | | | MPLETE [place] | | | | | | | [place] | | | | | | | [...] | | | | Sinoatrial | Jose, EVENT SALES ASSISTANT | [address] | | | | | node | [address] | [place], | | | | | dysfunction | [place] | [place] | | | | | ([facility]) | [place], [place] | [address] | | | | | Coronary | [address] | Phone: | | | | | artery | Phone: | [phone] | | | | | disease | [phone] | Fax: | | | | | involving | Fax: | [phone] | | | | | wrangell | [phone] | | | | | | coronary | | | | | | | artery of | | | | | | | wrangell heart | | | | | | [...] | | | | | | Complete [place] | | | | | | | ECHO HEART | | | | | | | [place]THORAC[place] | | | | | | | MPLETE [place] | | | | | | | [place] | | | | | | | [...] + + + + | 06/16/ | [facility] | [facility] | Jose Angel, | Sinoatrial node | | 2016 | Encounter | MED CTR ECHO [address] | EVENT SALES ASSISTANT [address] | dysfunction (HCC) | | | | [place] | [place] [facility], [place] | with symptomatic | | | | [place] [address] | [address] | bradycardia; | | | | [phone] | | Coronary artery | | | | | Juvenal Blake, | disease involving | | | | | Technologist | wrangell coronary | | | | | | artery of wrangell | | | | | | heart [...] + + + +---------+ + + | Brogue-3 Fatty | CAPS, one capsule by | [...] | | | | | | [place] [address] | | | | | | [phone] | | | | | | | [...] involving | | | | | | wrangell coronary | | | | | | artery of wrangell | | | | | | heart [...] Patient | [facility] | | [id number] Date of Study 06/16/2016 Number | - IMAGING | | Visit Number [id number] | | | Referring Physician JOSE ARMANDO JOSE Number Date of 1960 | | | Manager Track LUIS FERNANDO RIGOBERTO RDS Age | | | 56 year(s) Interpreting | | | GURJIT TROY | | | Local Company Hazmat Driver SYDNI CAGLE, | | | MD Gender | | | Male Nurse Procedure Type of Study TTE | | | procedure: ECHO Complete. Procedure dateDate: 06/16/2016Start: 10:55 | | | AM Technical Quality: Adequate visualizationStudy Location: Echo | | | LabIndications: CAD [place] CORONARY ARTERY 414.01/ I25.10 and | | [...] BARRY Room Number SARAH | | Patient [id number] Date of Study 06/16/2016 Number Visit Number | | [id number] Referring Physician JOSE ARMANDO JOSE Number | | Date of 1960 Manager Track GABBIROLYGustavo RIGOBERTO DUARTE Age | | 56 year(s) Interpreting GURJIT TROY | | Local Company Hazmat Driver SYDNI CAGLE, | | Gender Male NurseProcedureType of Study TTE | | procedure: ECHO Complete.Procedure dateDate: 06/16/2016Start: 10:55 AMTechnical Quality: | | Adequate visualizationStudy Location: Echo LabIndications: CAD [place] CORONARY ARTERY | | 414.01/ I25.10 and [...] [address] | [place] | [phone] | | [facility] | | [address] | | | - IMAGING | | [...] + + | Coronary artery disease involving wrangell coronary artery of wrangell heart without | | angina pectoris | + + | Ascending thoracic aortic aneurysm (HCC) Thoracic aneurysm without mention of rupture | + + documented in this encounter"
--- OUTSIDE RECORDS SUMMARY | ~2020-06-15 | XMS | Encounter Summary ---
Demographics + + + | Address | [address] | | | [place] [address] | + + + | Home Phone [...] Providers + +------+ + | Care Race Relations Adviser Name | Role | Phone | [...] [address] | | | | | [place], | [place], | | | | | [place] [address] | [place] [address] | | | | | [phone] | [phone] | | | | | | | [...] | | | | | | [place] [address] | | | | | | [phone] | | | | | | | | +--------+ + + + + documented as of this encounter Visit Diagnoses Not on filedocumented in this encounter"
--- OUTSIDE RECORDS SUMMARY | ~2020-06-15 | XMS | Encounter Summary ---
Demographics + + + | Address | [address] | | | [place] [address] | + + + | Home Phone [...] Providers + +------+ + | Care Hot Blaster Name | Role | Phone | + [...] | disease involving | | | | [place], | [place], | [place] coronary | | | | [place] [address] | [place] [address] | artery without | | | | [phone] | [phone] | angina pectoris | | | | [...] | | | | | | [place] [address] | | | | | | [phone] | | | | | | | [...] MD | | | | | | ([id number]) on 08/29/2015 | | | | | [...] + + | Coronary artery disease involving [place] coronary artery without angina pectoris - | | Primary | + + documented in this encounter"
--- OUTSIDE RECORDS SUMMARY | ~2020-06-15 | XMS | Encounter Summary ---
Demographics + + + | Address | [address] | | | [place] [address] | + + + | Home Phone [...] Team Providers + +------+ + | Care Audio Visual Design Engineer Name | Role | Phone [...] + | 06/22/ | Telephone | [facility] | Michael Amanda, | Eye Problem | | 2012 | | MEDICINE [facility] | DO [address] | | | | | [address] | [place] | | | | | [place] | [address] | | | | | [address] | | | | | | [phone] | | | +--------+ + + + [...] care provider Patient can be reached at Home:[phone] Patient also says he needs physical Talked [...] | | | | | | [place] [address] | | | | | | [phone] | | | | | | | | +--------+ + + + + documented as of this encounter Visit Diagnoses Not on filedocumented in this encounter"
--- OUTSIDE RECORDS SUMMARY | ~2020-06-15 | XMS | Encounter Summary ---
Demographics + + + | Address | [address] | | | [place] [address] | + + + | Home Phone [...] Providers + +------+ + | Care Arts And Crafts Instructor Name | Role | Phone | [...] 2019 | | CARDIOLOGY [address] | [address] | | | | | [place] | | | | | | [place] [address] | | | | | | [phone] | | | +--------+ + + + [...] | | | | | | [place] [address] | | | | | | [phone] | | | | | | | [...] | | | | | | | Georgian, | | | | | | External [...]
--- OUTSIDE RECORDS SUMMARY | ~2020-06-15 | XMS | Encounter Summary ---
Demographics + + + | Address | [address] | | | [place] [address] | + + + | Home Phone [...] Providers + +------+ + | Care Fabrication Engineer Name | Role | Phone | [...] | | | | [place] | [phone] | | | | | [address] | | | | | | [phone] | | | +--------+ + + + [...] + + + +---------+ + + | Amidon-3 Fatty | CAPS, one capsule by | [...] | | | | | | [place] [address] | | | | | | [phone] | | | | | | | [...]
--- OUTSIDE RECORDS SUMMARY | ~2020-06-15 | XMS | Encounter Summary ---
Demographics + + + | Address | [address] | | | [place] [address] | + + + | Home Phone [...] Providers + +------+ + | Care Traveling Sales Executive Name | Role | Phone | [...] | (Fax) | | | | | [address] | | | | | | [phone] | | | +--------+ + + + [...] | | | | | | [place] [address] | | | | | | [phone] | | | | | | | | +--------+ + + + + documented as of this encounter Visit Diagnoses Not on filedocumented in this encounter"
--- OUTSIDE RECORDS SUMMARY | ~2020-06-15 | XMS | Encounter Summary ---
Demographics + + + | Address | [address] | | | [place] [address] | + + + | Home Phone [...] Providers + +------+ + | Care Water Rights Specialist Name | Role | Phone | + +------+ + | Kirk French MD | PCP | | + +------+ + Encounter Details +--------+ + + + + | Date | Type | Department | Care Team | Description | +--------+ + + + + | 01/25/ | Emergency | [facility] | Donald Callahan, | Strain of lumbar | | 2016 | | [facility] | Russ, DO [address] | paraspinal muscle, | | | | EMERGENCY CENTER | [address] | initial encounter; | | | | [address] | [place], [place] | Left hip pain | | | | [place], [place] | [address] | | | | | [address] | | | | | | [phone] | | | +--------+ + + + [...] + + + +---------+ + + | Mantua-3 Fatty | CAPS, one capsule by | [...] documented as of this encounter ED Notes Perez Montoya PA-C - 01/25/2017 2:58 PM PSTFormatting of this note might be different from corie white original. ED Provider Notes by Perez Montoya PA-C at 01/25/17 158 Author: Perez Montoya PA-C Service: Emergency Department Author Type: Physician Patient Service Specialist - Certified Filed: 01/25/17 2472 Date of Service: 01/25/171457 Status: Signed Brazer Crawler Torch: Perez Montoya PA-C (Physician Patient Service Specialist - Certified) Cosigner: Russ riley DO at 01/28/17 1225 Procedures [facility] EM[facility]GENCY [facility]PART[facility] History of Present Illness Patient Identification Pina Gay is a 56 y.o. male. Patient information was obtained from patient. History/Exam limitations: none. Patient presented to the Emergency Department by: Car Chief Complaint Chief Complaint Patient presents with Hip Pain since last January. denies new injury. LEFT Back Pain lower, left The patient complains of left-sided hip and low back pain. Onset of symptoms was 1 year ago , with a unresolved course since that time. The symptoms are described to be of mild to mod erate in severity. The patient also complains of a fall one year ago landing on his left hip and low back with hematoma formation and pain and relates persistent pain since that time. The patient describes the quality and location of the symptoms as the following: "As if I g ot hit by a sledgehammer" mother left hip and low back that is made worse with range of barrear on and ambulation. Care prior to arrival consisted of rest, with out relief. Patient relates that he has a follow-up appointment with his orthopedist tomorrow in [place]. Past Medical History Diagnosis Date Hyperlipidemia Hypertension Back pain Other chronic pain PVC (premature ventricular contraction) Sleep apnea Bipolar 1 disorder (HCC) Anxiety and depression Fibromyalgia Thrombocytopenia (HCC) Fatigue Abdominal pain Chronic neck pain Syncope Insomnia Ulcerative colitis (HCC) Sinoatrial node dysfunction (HCC) Pacemaker Hep B w/o coma PUD (peptic ulcer disease) Fatty liver disease, nonalcoholic Hypoglycemia Tachycardia CAD (coronary artery disease), [place] artery transplanted heart Thoracic ascending aortic aneurysm (HCC) Multiple substance abuse Cannabis abuse Chronic pain syndrome Past Surgical History Procedure Laterality Date Spine surgery Abdominal surgery adhesions removed Pacemaker insertion Laser ablation x3 Cardiac catheterization Hardware removal Appendectomy [facility] Knee arthroscopy Bilateral Shoulder surgery Bilateral Rotator Cuff Repairs Spinal fusion 4 Cervical fusions; [facility] [place] Spinal fusion 2 Lumbar Fusions; [place] Prior to Admission medications Medication Sig Start Date End Date Taking? Authorizing Provider 5-Hydroxytryptophan (5-HTP) 100 MG CAPS Take by mouth 2 (two) times daily. Historical P rovider aluminum-magnesium hydroxide 200-200 MG/5ML suspension Take 5 [...] Historical Provider clonazePAM (KLONOPIN) 0.5 MG tablet take 1 tablet by mouth three times a day 12/25/16 Tyrel French MD cloNIDine (CATAPRES) 0.2 MG tablet 07/10/15 Historical Provider diphenhydrAMINE (BENADRYL) 25 mg capsule Take 25 mg by mouth every 6 (six) hours as needed for Itching. Historical Provider dronabinol (MARINOL) 10 MG capsule Take 1 capsule by mouth 3 (three) times daily. 12/31/16 Kirk French MD FREE TEXT PRESCRIPTION, PRINT ONLY, CPAP machine 12/31/16 Kirk French MD glucose blood test strip Test up to 1 times a day as needed 12/30/15 12/31/16 Kirk whitten MD losartan (COZAAR) 25 MG tablet Take 25 mg by mouth daily. Historical Provider Melatonin-Pyridoxine (MELATIN PO) Take 10 mg by mouth nightly. Historical Provider meloxicam (MOBIC) 15 MG tablet Take 15 mg by mouth daily. 11/12/16 Historical Provider Methylsulfonylmethane (MSM) 1000 MG TABS Take by mouth 2 (two) times daily. Historical Provider [facility] Natural Products (OSTEO BI-FLEX ADV JOINT SHIELD PO) Take by mouth 2 (two) times mei y. Historical Provider Multiple Vitamin (MULTIVITAMIN) capsule Take 1 capsule by mouth daily. Historical Provid er NATTOKINASE PO Take by mouth 2 (two) times daily. Historical Provider NITROSTAT 0.4 MG SL tablet 07/23/15 Historical Provider pravastatin (PRAVACHOL) 40 MG tablet 06/26/15 Historical Provider promethazine (PHENERGAN) 25 MG tablet 07/15/15 Historical Provider rOPINIRole (REQUIP) 1 MG tablet 11/13/15 Historical Provider UNABLE TO FIND daily. Med Name: Cardiocore 2 po q day Historical Provider valACYclovir (VALTREX) 500 MG tablet take 1 tablet by mouth once daily 08/27/16 Kirk French MD Allergies Allergen Reactions Tramadol Hives Biaxin [Clarithromycin] Rash Duloxetine Palpitations Fentanyl Itching Penicillins Palpitations Vicodin [Hydrocodone-Acetaminophen] Other (See Comments) "makes me very irritable" Prednisone Mental Changes Social History Social History Marital Status: Spouse Name: N/A Number of Children: 2 Years of Education: 12 Occupational History Disabled Retired from [employer] Social History Main Topics Smoking status: Former Smoker Types: Cigars Quit date: 02/12/1996 Smokeless tobacco: Never Used Comment: quit smoking cigars 20 yr ago (smoked "one cigar a year" Alcohol Use: No Comment: occ Drug Use: Yes Special: Marijuana, Methamphetamines, "Crack" cocaine Comment: "I eat weed" Sexual Activity: Not on file Other Topics Concern Not on file Social History Narrative Family History Problem Relation Age of Onset Heart disease Mother Stroke Mother Heart disease Father Heart attack Father Cancer Father prostate, colon Hypertension Father Stroke Father ROS Review of Systems Constitutional: Negative for: fever, chills, fatigue, sweats or weight loss Eyes: Negative for: decreased vision or irritated eyes Nose: Negative for: nosebleed Throat: Negative for: mouth sores Cardiovascular/Respiratory: Negative for: chest pain, shortness of breath, cough Gastrointestinal: Negative for: abdominal pain, vomiting, diarrhea, black or bloody stools Genitourinary: Negative for: dysuria, hematuria, urinary problems Musculoskeletal: Negative for: myalgias and arthralgias Positive for: Left hip and low back pain Skin: Negative for: laceration or lesion Neuro and psych: Negative for: fainting, head injury, seizure, trouble walking Endocrine/Heme/Lymph: Negative for: swollen lymph nodes, easy bruising Physical Exam BP 117/84 mmHg | Pulse 97 | Temp(Src) 97.7 F (36.5 C) (Temporal) | Resp 18 | Wt 112.8 k g (248 lb 10.9 oz) | SpO2 92% Pulse Oximetry interpretation: Normal General: Alert, in no apparent distress Eyes: Normal inspection, pupils equal and round, non-icteric Cardiovascular: Rate and rhythm normal No murmurs, 2+ pulses pedal with normal distal perfusion and cap refill Respiratory: Breath sounds normal bilaterally Abdomen: Soft, non-tender, non-distended No guarding or rebound MS: Pain with palpation in the bony prominence of the left lateral hip and anterior portio n of the hip however negative logroll Back: Hypertonicity lumbar paraspinal muscles left greater than right L1-5 with vertebral TTP over L3-5 without chronic tissue texture changes, crepitus, step-off, negative straight leg test, 2+ patellar reflexes intact Skin: Color normal Warm and dry No rash Neuro: No motor deficit in the lower extremities No sensory deficit in the lower extremities Antalgic gait ED Course Medical Decision Making and Emergency Department Course ED Department Course 1415: Examined and spoke to the patient relates a history of left hip and low back pain. I discussed a differential of fracture, dislocation, soft tissue injury. Discussed a plan for x-ray imaging and we will reevaluate. 1510: X-ray images negative for acute fracture 1515: I reviewed the x-ray images with the patient and discussed with the plans for dischar ge and follow-up with his orthopedist tomorrow as scheduled. I discussed with him the treatm ent plan and what would constitute a return to emergency department. Patient is currently af ebrile and nontoxic-appearing at this time. Patient is requesting a medication prescription of nausea medication. Records Reviewed Nursing notes. Labs & Radiology Results Laboratory Evaluation Results None Radiology and EKG Evaluation Imaging Results XR Lumbar Spine 3 View (Final result) Result time: 01/25/17 15:09:06 Final result by Rad Results In Kevin (01/25/17 15:09:06) Impression: 1. Unchanged appearance of lumbar fusion hardware at the level of L5-6. 2. No acute fracture or subluxation. Narrative: PINA GAY 1960 56 years Male XR LUMBAR SPINE LIMITED 2-3 VIEW 01/25/2017 2:48 PM INDICATION: Back pain COMPARISON: CT, 04/07/2016 TECHNIQUE: Lumbar spine series, 3 views FINDINGS: There are 6 nonrib-bearing lumbar vertebral type bodies for the purposes of this dictation. Lumbar fusion hardware previously seen at L5-6 is unchanged in appearance without evidence of complication. A decompression laminectomy at the level of fusion is noted. Ther e appears to be slight progressive disc space narrowing at the level of L4-L5. Vertebral bod y heights are maintained with no acute or chronic fracture. There are questionable nonobstru cting urinary stones along the left kidney. XR Hip Left AP and Lateral (Final result) Result time: 01/25/17 15:10:09 Final result by Rad Results In Kevin (01/25/17 15:10:09) Impression: 1. No acute fracture or dislocation. Narrative: PINA GAY 1960 XR HIP 2 VIEW LEFT 01/25/2017 2:48 PM INDICATION: Trauma COMPARISON: None TECHNIQUE: Two views of the left hip FINDINGS: The bone density is normal. There is mild osteoarthritic spurring of the acetabul um. The femoral head is situated in the acetabulum. There are no femoral head or neck fractu res. There are presumed vasectomy clips noted. Diagnosis & Disposition ED Diagnoses Final diagnoses Strain of lumbar paraspinal muscle, initial encounter Left hip pain Disposition: ED Disposition Discharge Condition at discharge: Stable Follow-up Information Follow up With Details Comments Contact Info Naresh De MD In 1 day as scheduled [facility] [facility] [address] [facility] Emergency Department If symptoms worsen [address] [place] [id number] Discharge Medications: Discharge Medication List as of 01/25/2017 3:24 PM Perez Montoya PA-C 01/25/172156 onversion Tr ansaction, Provider Unknown - 01/25/2017 2:13 PM PSTFormatting of this note might be differ ent from the original. ED Notes by Jessica Arellano RN at 01/25/17 141 Author: Jessica Arellano RN Service: (none) Author Type: Registered Nurse Filed: 01/25/17 1414 Date of Service: 01/25/171412 Status: Signed Brazer Crawler Torch: Jessica Arellano RN (Registered Nurse) C/o l hip pain ''since 1980 but i fell a year ago and it has been worse since then''. Pt am bulatory, appears in nad Jessica Arellano RN 01/25/17 141 Karen pfeiffer in this encounter Plan of [...] | | | | | | [place] [address] | | | | | | [phone] | | | | | | | [...] Kalpesh Conversion - 07/06/2019 12:12 AM FRANCY [id number] years MaleXR | | LUMBAR SPINE LIMITED [...] thigh | + + documented in this encounter
--- OUTSIDE RECORDS SUMMARY | ~2020-06-15 | XMS | Encounter Summary ---
Demographics + + + | Address | [address] | | | [place] [address] | + + + | Home Phone [...] Team Providers + +------+ + | Care Job Trainer Name | Role | Phone | [...] | | | | stenosis | L, MANAGER [employer] [address] | | | | | | Procedures | [address] [place] | | | | | | CT | [address] | | | | | | Myelography | [place], [place] | | | | | | Cervical | [address] | | | | | | Spine | Phone: | | | | | | | [phone] | | | | | | | Fax: | | | | | | | [phone] | | +--------+--------+ + + + + [...] + | 06/04/ | Hospital | [facility] | Sariah, | Cervical spinal | | 2016 | Encounter | MED [facility] [address] | Marietta Mason MANAGER [employer] [address] | stenosis | | | | [place], | [address] | | | | | [place] [address] | [place] [address] | | | | | [phone] | [phone] | | | | | | | [...] + + + +---------+ + + | Putnam-3 Fatty | CAPS, one capsule by | [...] W | | | | | | [place], | | | | | | [place] [address] | | | | | | [phone] | | | | | | | [...]
--- OUTSIDE RECORDS SUMMARY | ~2020-06-15 | XMS | Encounter Summary ---
Demographics + + + | Address | [address] | | | [place] [address] | + + + | Home Phone [...] + +------+ + | Care Medical Office Worker Name | Role | Phone | + +------+ + PCP | Unavailable | + +------+ + Encounter Details +--------+ + + + + | Date | Type | Department | Care Team | Description | +--------+ + + + + | 06/14/ | [facility] | [facility] | Daljit Singletary, | | | 2008 - | Encounter | MED CTR MP INTRA OP | MD [address] | | | | | [address] | [address], | | | 06/15/ | | [place] | [place] [address] | | | 2008 | | [address] | [phone] | | | | | [phone] | | | +--------+ + + + [...] | | | | | | [place] [address] | | | | | | [phone] | | | | | | | | +--------+ + + + + documented as of this encounter Visit Diagnoses Not on filedocumented in this encounter"
--- OUTSIDE RECORDS SUMMARY | ~2020-06-15 | XMS | Encounter Summary ---
Demographics + + + | Address | [address] | | | [place] [address] | + + + | Home Phone [...] Team Providers + +------+ + | Care Farmer [employer] Name | Role | Phone | + [...] 2012 | | Conversion Location | [address] | | | | | TRACIE TINEO [facility] | [address] [place], [place] [address], | | | | | [place], [place] | [place] [address] | | | | | [address] | [phone] | | | | | [phone] | | | +--------+ + + + [...] | | | | | | [place] [address] | | | | | | [phone] | | | | | | | | +--------+ + + + + documented as of this encounter Visit Diagnoses Not on filedocumented in this encounter"
--- OUTSIDE RECORDS SUMMARY | ~2020-06-15 | XMS | Encounter Summary ---
Demographics + + + | Address | [address] | | | [place] [address] | + + + | Home Phone [...] Team Providers + +------+ + | Care Skimmer Scoop Operator Name | Role | Phone | [...] CARDIOLOGY [address] | MD [address] | Interrogation | | | | [place], | [place], | (Primary Dx); | | | | [place] [address] | [place] [address] | Pacemaker; | | | | [phone] | [phone] | Sinoatrial node | | | | [...] (HCC)Date of Remote Interrogation: 2019 Refer to P[employer] documentation and remote PDF scanned into [employer] for remote interrogation re sults. Data collected [...] | | | | | | [place] [address] | | | | | | [phone] | | | | | | | [...] remote PDF scanned into | | | [facility] for remote interrogation results. Data [...]
--- OUTSIDE RECORDS SUMMARY | ~2020-06-15 | XMS | Encounter Summary ---
Demographics + + + | Address | [address] | | | [place] [address] | + + + | Home Phone [...] Team Providers + +------+ + | Care Territory Manager Name | Role | Phone | + +------+ + PCP | Unavailable | + +------+ + Encounter Details +--------+ + + + + | Date | Type | Department | Care Team | Description | +--------+ + + + + | 02/21/ | [facility] | [facility] | Geri Angel, | | | 2011 | Encounter | MED CTR XRAY [address] | PRODUCE MANAGER [address] | | | | | [place] | [place] | | | | | [place] [address] | [id number] | | | | | [phone] | | | +--------+ + + + [...] | | | | | | [place] [address] | | | | | | [phone] | | | | | | | | +--------+ + + + + documented as of this encounter Visit Diagnoses Not on filedocumented in this encounter"
--- OUTSIDE RECORDS SUMMARY | ~2020-06-15 | XMS | Encounter Summary ---
Demographics + + + | Address | [address] | | | [place] [address] | + + + | Home Phone [...] Team Providers + +------+ + | Care Dosier Operator Name | Role | Phone | [...] + | 12/23/ | Telephone | [facility] | Daljit Singletary, | Other (question | | 2015 | | CARDIOLOGY [address] | MD [address] [place] | about diet | | | | [place], | [place], | medication) | | | | [place] [address] | [place] [address] | | | | | [phone] | [phone] | | | | | | | [...] | | | | | | [place] [address] | | | | | | [phone] | | | | | | | | +--------+ + + + + documented as of this encounter Visit Diagnoses Not on filedocumented in this encounter"
--- OUTSIDE RECORDS SUMMARY | ~2020-06-15 | XMS | Encounter Summary ---
Demographics + + + | Address | [address] | | | [place] [address] | + + + | Home Phone [...] Team Providers + +------+ + | Care 3D Modeler Name | Role | Phone | + [...] + | 04/11/ | Telephone | [facility] | Silvia, | Other (not feeling | | 2013 | | CARDIOLOGY [address] | PARISA Vernon [address] | well) | | | | [place], | [place], | | | | | [place] [address] | [place] [address] | | | | | [phone] | [phone] | | | | | | | [...] 04/24/2014 at 10:56 elephone Encounter - Darlene Tiraod RN - 04/19/2014 1:18 PM PDTFred returned [...] 12:15 elephone Encounter - Jay Webster Cert PR - 04/18/2014 9:28 AM PDTFormatting of this [...] | | | | | | [place] [address] | | | | | | [phone] | | | | | | | | +--------+ + + + + documented as of this encounter Visit Diagnoses Not on filedocumented in this encounter
--- OUTSIDE RECORDS SUMMARY | ~2020-06-15 | XMS | Encounter Summary ---
Demographics + + + | Address | [address] | | | [place] [address] | + + + | Home Phone [...] Team Providers + +------+ + | Care Mutuel Cashier Name | Role | Phone | [...] | CARDIOLOGY [address] | [address] [place] | Interrogation | | | | [place], | [place], | (Primary Dx); | | | | [place] [address] | [place] [address] | Presence of | | | | [phone] | [phone] | permanent cardiac | | | | [...] Pace[employer] documentation and remote PDF scanned into [employer] for remote interrogation re sults. Data collected [...] | | | | | | [place] [address] | | | | | | [phone] | | | | | | | [...] Paceart documentation and remote PDF scanned into [employer] | | | for remote interrogation results. [...]
--- OUTSIDE RECORDS SUMMARY | ~2020-06-15 | XMS | Encounter Summary ---
Demographics + + + | Address | [address] | | | [place] [address] | + + + | Home Phone [...] Providers + +------+ + | Care Supervisor Burling And Joining Name | Role | Phone | + [...] + + | 03/02/ | Emergency | [facility] | Lizbeth Green | Situational stress | | 2013 | | MED CTR EMERGENCY | DO Nicole Fink | (Primary Dx) | | | | CENTER [address] | [place], [place] | | | | | [place], [place] | [address] | | | | | [address] | | | | | | [phone] | | | +--------+ + + + [...] new doc you can try over at [facility] documented in this encounter Medications at [...] + + + +---------+ + + | Douglas-3 Fatty | CAPS, one capsule by | [...] terrible. Last night he went to [facility] because he was continuing to h [...] Daljit Singletary MD. On 03/07/2014. Contact information: [address] [place] [address], Cardiology [address] [facility] [address] Lizbeth Green MD 03/03/14 1510 [address] Campbell [...] today, feeling very tired. Seen in [facility] last week for same compl aint, seen last night [address] for chest pain (sharp in quality). documented [...] | | | | | | [place] [address] | | | | | | [phone] | | | | | | | | +--------+ + + + + documented as of this encounter Visit Diagnoses + + | Diagnosis | + + | Situational stress - Primary Other psychological or physical stress, not elsewhere | | classified | + + documented in this encounter
--- OUTSIDE RECORDS SUMMARY | ~2020-06-15 | XMS | Encounter Summary ---
Demographics + + + | Address | [address] | | | [place] [address] | + + + | Home Phone [...] Providers + +------+ + | Care School Bus Aide Name | Role | Phone | [...] + | 06/23/ | Telephone | [facility] | Michael Amanda, | No Show | | 2012 | | MEDICINE [place] | DO [address] | | | | | [address] | [place], [place] | | | | | [place], [place] | [address] | | | | | [address] | | | | | | [phone] | | | +--------+ + + + [...] reschedule for a physical/eye problems with Brea Amnada. documented in th is encounter Plan of [...] | | | | | | [place] [address] | | | | | | [phone] | | | | | | | | +--------+ + + + + documented as of this encounter Visit Diagnoses Not on filedocumented in this encounter"
--- OUTSIDE RECORDS SUMMARY | ~2020-06-15 | XMS | Encounter Summary ---
Demographics + + + | Address | [address] | | | [place] [address] | + + + | Home Phone [...] Providers + +------+ + | Care Fire Loss Prevention Engineer Name | Role | Phone | [...] [address] | | | | | [place], | [place], | | | | | [place] [address] | [place] [address] | | | | | [phone] | [phone] | | | | | | | [...] | | | | | | [place] [address] | | | | | | [phone] | | | | | | | | +--------+ + + + + documented as of this encounter Visit Diagnoses Not on filedocumented in this encounter"
--- OUTSIDE RECORDS SUMMARY | ~2020-06-15 | XMS | Encounter Summary ---
Demographics + + + | Address | [address] | | | [place] [address] | + + + | Home Phone [...] Team Providers + +------+ + | Care Hospice Consultant Name | Role | Phone | [...] of lumbar | | 2016 | | [facility] | Russ, DO [address] | paraspinal muscle, | | | | EMERG[facility]Y CENTER | [address] | initial encounter; | | | | [address] | [place], [place] | Left hip pain | | | | [place], [place] | [address] | | | | | [address] | | | | | | [phone] | | | +--------+ + + + [...] + + + +---------+ + + | Garrard-3 Fatty | CAPS, one capsule by | [...] Notes by Perez Montoya PA-C at 01/25/17 248 Author: Perez Montoya PA-C Service: Emergency Department Author Type: Physician Certified Activities Director - Certified Filed: 01/25/17 1219 Date of Service: 01/25/171457 Status: Signed Regulatory Manager: Perez Montoya PA-C (Physician Certified Activities Director - Certified) Cosigner: Russ riley DO at 01/28/17 1225 Procedures [facility] History of Present Illness Patient [...] that is made worse with range of barrera on and ambulation. Care prior to arrival consisted of rest, with out relief. Patient relates that he has a follow-up appointment with his orthopedist tomorrow in [place]. Past Medical History Diagnosis Date Hyperlipidemia Hypertension Back pain Other chronic pain PVC (premature ventricular contraction) Sleep apnea Bipolar 1 disorder (HCC) Anxiety and depression Fibromyalgia Thrombocytopenia (HCC) Fatigue Abdominal pain Chronic neck pain Syncope Insomnia Ulcerative colitis (HCC) Sinoatrial node dysfunction (HCC) Pacemaker Hep B w/o coma PUD (peptic ulcer disease) Fatty liver disease, nonalcoholic Hypoglycemia Tachycardia CAD (coronary artery disease), seneca artery transplanted heart Thoracic ascending aortic aneurysm (HCC) Multiple substance abuse Cannabis abuse Chronic pain syndrome Past Surgical History Procedure Laterality Date Spine surgery Abdominal surgery adhesions removed Pacemaker insertion Laser ablation x3 Cardiac catheterization Hardware removal Appendectomy [facility], [facility] Knee arthroscopy Bilateral Shoulder surgery Bilateral Rotator Cuff Repairs Spinal fusion 4 Cervical fusions; [place] in [place] Spinal fusion 2 Lumbar Fusions; [place], [place] Prior to Admission medications Medication [...] mouth 2 (two) times daily. Historical Provider [facility] (OSTEO BI-FLEX ADV JOINT SHIELD [...] Education: 12 Occupational History Disabled Retired from [employer] Social History Main Topics Smoking status: Former [...] MD In 1 day as scheduled [facility] [address] [facility] If symptoms worsen [address] [place] [address] Discharge Medications: Discharge Medication List as of 01/25/2017 3:24 PM Perez Montoya PA-C 01/25/172156 onversion Tr ansaction, Provider Unknown - 01/25/2017 2:13 PM PSTFormatting of this note might be differ ent from the original. ED Notes by Jessica Arellano RN at 01/25/17 141 Author: Jessica Arellano RN Service: (none) Author Type: Registered Nurse Filed: 01/25/17 1414 Date of Service: 01/25/171412 Status: Signed Regulatory Manager: Jessica Arellano RN (Registered Nurse) C/o l [...] | | | | | | [place] [address] | | | | | | [phone] | | | | | | | [...] Kalpesh Conversion - 07/06/2019 12:12 AM FRANCY [id number] years MaleXR | | LUMBAR SPINE LIMITED [...]
--- OUTSIDE RECORDS SUMMARY | ~2020-06-15 | XMS | Encounter Summary ---
Demographics + + + | Address | [address] [place] [address] [address] | | | [place] [address] | + + + | Home Phone [...] [place] | | | | | [address] | | + + + + + Care Team Providers + +------+ + | Care Seo Manager Name | Role | Phone | [...] | | Center at [facility] [address] | MD [address] | | | | | [address] | [place], [place] | | | | | [facility] and | [address] | | | | | [facility], [facility] 2 | [phone] | | | | | [place], [place] | | | | | | [address] | | | | | | [phone] | | | +--------+ + + + [...]
--- OUTSIDE RECORDS SUMMARY | ~2020-06-15 | XMS | Encounter Summary ---
Demographics + + + | Address | [address] | | | [place] [address] | + + + | Home Phone [...] + + | 03/29/ | Telephone | [facility] | Emmanuel Daniel MD | Diarrhea (Adult) | | 2019 | | GASTROENTEROLOGY | [address], [place] | (stomach cramps and | | | | [address] [place] | [address] [place], [place] | liquid stool) | | | | [address] [place], [place] | [address] | | | | | [address] | | | | | | [phone] | | | +--------+ + + + [...] this afternoon after eating a sandwich from [employer]. He states he takes the medication that dr. Daniel has asked him too ( Bentyl, Benadryl, metamucil and imodium but nothing is helping, he might have a normal bowel movement about 2 -3 days in a row, and then the diarrhea hits. He asks what should he do. I let patient know that his referral to [facility] was authorized and they should be calling [...] | | | | | | [place] [address] | | | | | | [phone] | | | | | | | [...]
--- OUTSIDE RECORDS SUMMARY | ~2020-06-15 | XMS | Encounter Summary ---
Demographics + + + | Address | [address] | | | [place] [address] | + + + | Home Phone [...] Team Providers + +------+ + | Care Blindmaker Name | Role | Phone | + +------+ + | Kirk French MD | PCP | | + +------+ + Encounter Details +--------+ + + + + | Date | Type | Department | Care Team | Description | +--------+ + + + + | 07/01/ | Orders Only | [facility] | Silvia, | Mixed hyperlipidemia | | 2016 | | [facility] | PARISA [address] | (Primary Dx) | | | | [address] [place] | [place], | | | | | [place] | [place] [address] | | | | | [address] | [phone] | | | | | [phone] | | | +--------+ + + + [...] W | | | | | | [place], | | | | | | [place] [address] | | | | | | [phone] | | | | | | | [...]
--- OUTSIDE RECORDS SUMMARY | ~2020-06-15 | XMS | Encounter Summary ---
Demographics + + + | Address | [address] | | | [place] [address] | + + + | Home Phone [...] Providers + +------+ + | Care Sourcing Intern Name | Role | Phone | + +------+ + | Kirk French MD | PCP | | + +------+ + Reason for Visit + +--------+ + | Reason | Onset | Comments | | | Date | | + +--------+ + | Appointment | 01/25/ | | | | 2016 | | + +--------+ + Encounter Details +--------+ + + + + | Date | Type | Department | Care Team | Description | +--------+ + + + + | 01/25/ | Telephone | [facility] | Daljit Singletary, | Appointment | | 2017 | | CARDIOLOGY [address] | [address] [place] | | | | | [place], | [place], | | | | | [place] [address] | [place] [address] | | | | | [phone] | [phone] | | | | | | | [...] Ramirez and Geri Angel. Patient recently seen [facility] ER and has been referred for follow-up by ER provider. Referral number [id number] has been created. Called patient, left [facility] with request for patient to call back [...] | | | | | | [place] [address] | | | | | | [phone] | | | | | | | | +--------+ + + + + documented as of this encounter Visit Diagnoses Not on filedocumented in this encounter"
--- OUTSIDE RECORDS SUMMARY | ~2020-06-15 | XMS | Encounter Summary ---
Demographics + + + | Address | [address] | | | [place] [address] | + + + | Home Phone [...] Providers + +------+ + | Care Vehicle Sales Professional Name | Role | Phone | [...] W | | | | | [place], | [place], | | | | | [place] [address] | [place] [address] | | | | | [phone] | [phone] | | | | | | | [...] | | | | | | [place] [address] | | | | | | [phone] | | | | | | | | +--------+ + + + + documented as of this encounter Visit Diagnoses Not on filedocumented in this encounter"
--- OUTSIDE RECORDS SUMMARY | ~2020-06-15 | XMS | Encounter Summary ---
Demographics + + + | Address | [address] | | | [place] [address] | + + + | Home Phone [...] Providers + +------+ + | Care Sole Painter Name | Role | Phone | [...] | | Incontinence | [address] [place] | [place] | | | | | | [place] | [place] | | | | | | [address] | [address] Phone: | | | | | | Phone: | [phone] | | | | | | [phone] | Fax: | | | | | | Fax: | [phone] | | | | | | [phone] | | +--------+ + + + + [...] | diurnal enuresis | | | | [place], [place] | [place], [place] | (Primary Dx); BPH | | | | [address] | [address] | with | | | | [phone] | | obstruction/lower | | | | [...] H e states that the surgeon in [place] who performed his neck surgery is no longer practicing a nd was apparently disciplined and had his license revoked by the [facility]. He has us ed marijuana for [...] needed for Chest pain. 25 tablet 12 Bode-3 Fatty Acids (SALMON OIL-1000 PO) CAPS, one [...] Date/Time: 04/22/2012 16:56 Transcribed Date/Time: 04/22/2012 17:32 Certified Dialysis Technician: <Electronically Signed by Jama Solis MD> [...] Date/Time: 04/23/2012 10:54 Transcribed Date/Time: 04/23/2012 11:06 Certified Dialysis Technician: <Electronically Signed by Jama Solis MD> 04/24/12 0771 IMPRESSION: 1. Nocturnal and diurnal enuresis. I [...] ynamics many years ago with Dr. Mariama Nunse when he had an episode of urinary retention fol lowing administration of narcotics. He declines opportunity for urodynamics at this time. Given my suspicion for a neurogenic bladder, still believe that the recommendations from [facility], Dr. Demarco, on 03/13/2014 would [...] have not thoroughly proofread this note, and label rewinder erro rs may occur. CC: Kirk French MD documented in this en counter Procedure Notes ONBASE SCAN [facility] - 12/04/2014 12:00 AM PSTAssociated Order(s): IMAGING REPORT - EXTERNAL SC AN documented in this encount er Miscellaneous Notes Addendum Note - Kira Espinoza RN - 12/05/2014 9:52 AM PST Addended by: BECCA ESPINOZA on: 12/05/2014 09:52 Modules accepted: Orders iscellaneous - ONBASE SCAN [facility] - 12/04/2014 12:00 AM PSTElectronically signed by teresa, [facility] at 5 12:23 PM PSTMiscellaneous - [facility] - 12/04/2014 12:00 AM PSTElectronically kamaljit d by teresa [facility] at 12/29/2014 12:23 PM PSTdocumented in [...] | | | | | | [place] [address] | | | | | | [phone] | | | | | | | [...] 1.001 - 1.030 | | | | [place], | | | | | | UA, [...]
--- OUTSIDE RECORDS SUMMARY | ~2020-06-15 | XMS | Encounter Summary ---
Demographics + + + | Address | [address] | | | [place] [address] | + + + | Home Phone [...] Team Providers + +------+ + | Care Peoplesoft Hrms Developer Name | Role | Phone | + +------+ + | Kirk French MD | PCP | | + +------+ + Encounter Details +--------+ + + + + | Date | Type | Department | Care Team | Description | +--------+ + + + + | 11/17/ | Telephone | [facility] | Kirk French | | | 2019 | | [facility] FABRIZIO Guidry MD [address] | | | | | [address] | [address] | | | | | [address] | [place] [address] | | | | | [place], [place] | [phone] | | | | | [address] | | | | | | [phone] | | | +--------+ + + + [...] 12/06/2019 12:47 PM PSTDisregarded per Johanna at [facility] GI elephone Encounter - Geri Bear Brakes Inspector - 11/24/2019 12:20 PM PSTsee elephone Encounter - Nadeem French MD - 11/24/2019 12:19 PM PSTDefer to his property clerk, pretty common procedeu re elephone Encou nter - Geri Bear Brakes Inspector - 11/24/2019 11:44 AM PSTPlease adviseElectronicall y signed by Geri Bear Brakes Inspector at 11/24/2019 11:44 AM PSTTelephone Encounter - Shelley Hess - 11/17/2019 2:37 PM PSTProvider: Dr. Manolo Valadez called needing a recommendation for where patient can get a capsules endoscopy do ne. Caller: Campos Relationship to patient:[facility] GI Please call back at [phone] Can a Detailed VM be left on [...] | | | | | | [place] [address] | | | | | | [phone] | | | | | | | | +--------+ + + + + documented as of this encounter Visit Diagnoses Not on filedocumented in this encounter"
--- OUTSIDE RECORDS SUMMARY | ~2020-06-15 | XMS | Encounter Summary ---
Demographics + + + | Address | [address] | | | [place] [address] | + + + | Home Phone [...] Team Providers + +------+ + | Care Auditor Name | Role | Phone | [...] [place], | | | | | | [place] [address] | | | | | | [phone] | | | +--------+ + + + [...] | | | | | | [place] [address] | | | | | | [phone] | | | | | | | | +--------+ + + + + documented as of this encounter Visit Diagnoses Not on filedocumented in this encounter"
--- OUTSIDE RECORDS SUMMARY | ~2020-06-15 | XMS | Encounter Summary ---
Demographics + + + | Address | [address] | | | [place] [address] | + + + | Home Phone [...] Providers + +------+ + | Care Phone Screener Name | Role | Phone | + [...] + + | 09/09/ | Office | [facility] | Michael Amanda, | Hyperlipidemia; | | 2011 | Visit | MEDICINE [facility] | DO [address] | Hypertension; | | | | [address] | [place] | Chronic pain | | | | [place] | [address] | syndrome; Neck pain, | | | | [address] | | chronic | | | | [phone] | | | +--------+---------+ + + + [...] this encounter Progress Notes Michael Amanda, - 09/09/2012 2:44 PM PDTFormatting of this [...] damage history No ASHD (either angina; prior AK; prior CABG) No cardiac end organ damage [...] slowly cutting back. Pt was going through [facility] for opiate medications prior to [...] | | | | | | [place], | | | | | | [place] [address] | | | | | | [phone] | | | | | | | [...]
--- OUTSIDE RECORDS SUMMARY | ~2020-06-15 | XMS | Encounter Summary ---
Demographics + + + | Address | [address] | | | [place] [address] | + + + | Home Phone [...] Team Providers + +------+ + | Care Ethernet Network Architect Name | Role | Phone [...] | 11/02/ | Telephone | [facility] | Daljit Singletary, | Other | | 2015 | | [facility] [address] | [address] [place] | | | | | [place], | [place], | | | | | [place] [address] | [place] [address] | | | | | [phone] | [phone] | | | | | | | [...] us know so we can check with float operator to confirm and we will have learned [...] | | | | | | [place] [address] | | | | | | [phone] | | | | | | | | +--------+ + + + + documented as of this encounter Visit Diagnoses Not on filedocumented in this encounter"
--- OUTSIDE RECORDS SUMMARY | ~2020-06-15 | XMS | Encounter Summary ---
Demographics + + + | Address | [address] | | | [place] [address] | + + + | Home Phone [...] Team Providers + +------+ + | Care Mailer Name | Role | Phone | + +------+ + | Kirk French MD | PCP | | + +------+ + Encounter Details +--------+ + + + + | Date | Type | Department | Care Team | Description | +--------+ + + + + | 03/15/ | Hospital | [facility] | Conversion | | | 2016 | Encounter | [facility] | Transaction, | | | | | [address] | Provider Unknown | | | | | [address] [place] | [phone] | | | | | [address] | | | | | | [phone] | Kirk French | | | | | | MD [address] | | | | | | [address] [place], | | | | | | [place] [address] | | | | | | [phone] | | | | | | | [...] + + + +---------+ + + | [place]-3 Fatty | CAPS, one capsule by | [...] | | | | | | [place] [address] | | | | | | [phone] | | | | | | | | +--------+ + + + + documented as of this encounter Visit Diagnoses Not on filedocumented in this encounter"
--- OUTSIDE RECORDS SUMMARY | ~2020-06-15 | XMS | Encounter Summary ---
Demographics + + + | Address | [address] | | | [place] [address] | + + + | Home Phone [...] Team Providers + +------+ + | Care Plaster Mechanic Name | Role | Phone | [...] + + | 08/30/ | Refill | [facility] | Kirk French | Medication Refill | | 2019 | | [facility] | MD Brea [address] | | | | | [address] | [address] | | | | | [address] | [place] [address] | | | | | [place], [place] | [phone] | | | | | [address] | | | | | | [phone] | | | +--------+--------+ + + + [...] Miscellaneous Notes Telephone Encounter - Geri Bear Buttermilk Drier Operator - 08/30/2019 12:37 PM PDTrefillElec tronically signed by Geri Bear Buttermilk Drier Operator at 08/30/2019 12:37 PM PDTdocujean pierre villarreal [...] | | | | | | [place] [address] | | | | | | [phone] | | | | | | | | +--------+ + + + + documented as of this encounter Visit Diagnoses Not on filedocumented in this encounter"
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
--- OUTSIDE RECORDS SUMMARY | ~2020-06-15 | XMS | Encounter Summary ---
Demographics + + + | Address | [address] | | | [place] [address] | + + + | Home Phone [...] + +------+ + | Care Behavioral Health Associate Name | Role | Phone | [...] unspecified | [address] | | | | | type | [address] | [place], | | | | | Procedures | [place], | [place] | | | | | [place] | [place] [address] | [address] | | | | | Stress Test | Phone: | Phone: | | | | | (Vasodilator | [phone] | [phone] | | | | | ) CHG | Fax: | Fax: | | | | | MYOCARDIAL | [phone] | [phone] | | | | | SPECT | [...] + + | 07/21/ | Hospital | [facility] | Daljit Singletary, | | | 2018 | Encounter | MED CTR NUCLEAR | MD [address] | | | | | MEDICINE [address] | [address] [place], | | | | | [place], | [place] [address] | | | | | [place] [address] | [phone] | | | | | [phone] | | | +--------+ + + + [...] + + + +---------+ + + | [place]-3 Fatty | CAPS, one capsule by | [...] | | | | | | [place] [address] | | | | | | [phone] | | | | | | | [...] | | | | | | Starting [facility] 07/21/18 at 1224, For | | | | | | | 1 dose, Nuclear Medicine | | | | | | + +--------+ + +------+------+ +---+---+ | | | +---+---+ documented in this encounter"
--- OUTSIDE RECORDS SUMMARY | ~2020-06-15 | XMS | Encounter Summary ---
Demographics + + + | Address | [address] | | | [place] [address] | + + + | Home Phone [...] Providers + +------+ + | Care Air Twist Operator Name | Role | Phone | [...] + + | 01/12/ | Telephone | [facility] | Silvia, | Other (plan of care) | | 2019 | | CARDIOLOGY [address] | Janeen SPRAY GUN OPERATOR [address] | | | | | [place], | [place], | | | | | [place] [address] | [place] [address] | | | | | [phone] | [phone] | | | | | | | [...] Valentine RN on 01/16/19 at 11:26 [facility]phone [facility] Darlene Tirado RN - [...] Tirado RN on 01/13/19 at 8:44 elephone [facility] RN - 01/12/2019 5:25 PM [...] | | | | | | [place] [address] | | | | | | [phone] | | | | | | | | +--------+ + + + + documented as of this encounter Visit Diagnoses Not on filedocumented in this encounter"
--- OUTSIDE RECORDS SUMMARY | ~2020-06-15 | XMS | Encounter Summary ---
Demographics + + + | Address | [address] | | | [place] [address] | + + + | Home Phone [...] Providers + +------+ + | Care Card Cleaner Name | Role | Phone | [...] [address] | | | | | [place], | [place], | | | | | [place] [address] | [place] [address] | | | | | [phone] | [phone] | | | | | | | [...] | | | | | | [place] [address] | | | | | | [phone] | | | | | | | [...] Comment | + + | [facility] [place] | + + + +---------+ + + [...] Comment | + + | [facility] [place] | + + + +---------+ + + [...]
--- OUTSIDE RECORDS SUMMARY | ~2020-06-15 | XMS | Encounter Summary ---
Demographics + + + | Address | [address] | | | [place] [address] | + + + | Home Phone [...] Providers + +------+ + | Care Rn Paralegal Name | Role | Phone | [...] + + | 05/16/ | Telephone | [facility] | Emmanuel Daniel MD | Lab Order | | 2019 | | GASTROENTEROLOGY | [address], [place] | | | | | [address] [place] | [address] [place], [place] | | | | | [address] [place], [place] | [address] | | | | | [address] | | | | | | [phone] | | | +--------+ + + + [...] stools" . He ran out of the Healthcare IT about a week ago but plans to [...] day. Has appt Sep 28 GI at [facility] and he is on their waiting list. He asks if Dr Daniel would be able to get him in sooner at [facility] or even [facility] or [place]. Asks if Dr Daniel will write a letter to [facility] saying he can't wait until Nov. He [...] | | | | | | [place] [address] | | | | | | [phone] | | | | | | | | +--------+ + + + + documented as of this encounter Visit Diagnoses Not on filedocumented in this encounter
--- OUTSIDE RECORDS SUMMARY | ~2020-06-15 | XMS | Encounter Summary ---
Demographics + + + | Address | [address] | | | [place] [address] | + + + | Home Phone [...] Providers + +------+ + | Care Medical Records Supervisor Name | Role | Phone [...] | | | | CHRISTOPH DINH | [phone] | | | | | [address] | | | | | | [phone] | | | +--------+ + + + [...] + + +---------+ + + | [place]-3 Fatty | CAPS, one capsule by | [...] | | | | | | [place] [address] | | | | | | [phone] | | | | | | | [...]
--- OUTSIDE RECORDS SUMMARY | ~2020-06-15 | XMS | Encounter Summary ---
Demographics + + + | Address | [address] | | | [place] [address] | + + + | Home Phone [...] Providers + +------+ + | Care Student Development Specialist Name | Role | Phone | + +------+ + | Michael Amanda DO | PCP | | + +------+ + Reason for Visit + +--------+ + | Reason | Onset | Comments | | | Date | | + +--------+ + | Foot Pain | 10/01/ | | | | 2013 | | + +--------+ + Encounter Details +--------+ + + + + | Date | Type | Department | Care Team | Description | +--------+ + + + + | 10/01/ | Telephone | [facility] | Mary Bradshaw | Foot Pain | | 2013 | | CARE [address] | Guy Larkin MD | | | | | [place] MD | [address] | | | | | [address] | [place]A [place] MD | | | | | [phone] | [address] | | | | | | | [...] this encounter Miscellaneous Notes Telephone Encounter - Patricia Romero Cert MA - 10/01/2014 5:08 PM [facility] pain clinic called to verify if patient had a broken foot cause he was there due to the long 3 hour wait that he had to wait here. Patient had broken toe per Dr Bradshaw and the nurse was notified of that result. documented in this encounter Plan of Treatment [...] | | | | | | [place] [address] | | | | | | [phone] | | | | | | | | +--------+ + + + + documented as of this encounter Visit Diagnoses Not on filedocumented in this encounter"
--- OUTSIDE RECORDS SUMMARY | ~2020-06-15 | XMS | Encounter Summary ---
Demographics + + + | Address | [address] | | | [place] [address] | + + + | Home Phone [...] Providers + +------+ + | Care Glass Selector Name | Role | Phone | + [...] 2019 | | GASTROENTEROLOGY | [address] [place] | | | | | [address] [place] | [address] [place], [place] | | | | | [address] [place], [place] | [address] | | | | | [address] | | | | | | [phone] | | | +--------+--------+ + + + [...] | | | | | | [place] [address] | | | | | | [phone] | | | | | | | | +--------+ + + + + documented as of this encounter Visit Diagnoses Not on filedocumented in this encounter"
--- OUTSIDE RECORDS SUMMARY | ~2020-06-15 | XMS | Encounter Summary ---
Demographics + + + | Address | [address] | | | [place] [address] | + + + | Home Phone [...] Phone | + + +---------+ + | Andinevarsha Sweeneygalenvarsha | ECON | Unknown | | + + +---------+ + Care Team Providers + +------+ + | Care News Video Editor Name | Role | Phone | [...] Refill | | 2013 | | [facility] [place] | DO [address] | | | | | [address] | [place] | | | | | [place], [place] | [address] | | | | | [address] | | | | | | [phone] | | | +--------+--------+ + + + [...] | | | | | | [place] [address] | | | | | | [phone] | | | | | | | | +--------+ + + + + documented as of this encounter Visit Diagnoses Not on filedocumented in this encounter"
--- OUTSIDE RECORDS SUMMARY | ~2020-06-15 | XMS | Encounter Summary ---
Demographics + + + | Address | [address] | | | [place] [address] | + + + | Home Phone [...] Providers + +------+ + | Care Mental Hygienist Name | Role | Phone | + +------+ + PCP | Unavailable | + +------+ + Encounter Details +--------+ + + + + | Date | Type | Department | Care Team | Description | +--------+ + + + + | 05/28/ | [facility] | [facility] | Evan Gnadara MD | | | 2008 | Encounter | MED CTR LABORATORY | [address] [facility] | | | | | [address] | [place] | | | | | [place] | [address] | | | | | [address] | | | | | | [phone] | | | +--------+ + + + [...] | | | | | | [place] [address] | | | | | | [phone] | | | | | | | | +--------+ + + + + documented as of this encounter Visit Diagnoses Not on filedocumented in this encounter"
--- OUTSIDE RECORDS SUMMARY | ~2020-06-15 | XMS | Encounter Summary ---
Demographics + + + | Address | [address] | | | [place] [address] | + + + | Home Phone [...] Providers + +------+ + | Care Air Conditioning Mechanic Name | Role | Phone | [...] 2019 | | GASTROENTEROLOGY | [address], [place] | | | | | [address] [place] | [address] [place], [place] | | | | | [address] [place], [place] | [address] | | | | | [address] | | | | | | [phone] | | | +--------+ + + + [...] - 09/07/2019 11:10 AM [facility]. he states he had the "worse cr amping of his life. He received fluids. Cramping has eased up. He states Imaging and labs were done. He has appt at [facility] 09/28/19. He will take his records from [facility] and from [facility]. e juan m Encounter - Anastacio Bennett - 09/04/2019 10:14 AM PDTName of Caller: Skyler Sanchez "Amilcar" Name of Patient: Moe Sanchez "Amilcar" Reason for call: Patient called and stated that his IBS medication is not helping. Patient stated that he has been like this for five days now. Routing to clinical staff to advise. Provider/Nurse: Dr. Daniel / Darryn Call back number: [phone] [facility] Plan of Treatment +--------+ + + [...] | | | | | | [place] [address] | | | | | | [phone] | | | | | | | | +--------+ + + + + documented as of this encounter Visit Diagnoses Not on filedocumented in this encounter
--- OUTSIDE RECORDS SUMMARY | ~2020-06-15 | XMS | Encounter Summary ---
Demographics + + + | Address | [address] | | | [place] [address] | + + + | Home Phone [...] Team Providers + +------+ + | Care Study Assistant Name | Role | Phone | + +------+ + | Michael Amanda DO | PCP | | + +------+ + Reason for Visit + + + | Reason | Comments | + + + | Follow-up | One month with [facility] 12/25/13 | + + + | Chest Pain | | + + + Encounter Details +--------+---------+ + + + | Date | Type | Department | Care Team | Description | +--------+---------+ + + + | 01/29/ | Office | [facility] | [place], | Other chest pain | | 2013 | Visit | CARDIOLOGY [address] | [place] [address] | (Primary Dx); Chest | | | | [place], | [place], | pain; Coronary | | | | [place] [address] | [place] [address] | artery disease; | | | | [phone] | [phone] | Hyperlipidemia; | | | | | [...] encounter Progress Notes Janeen Ramirez ARNP - 01/29/2014 2:08 PM PDTFormatting of this [...] last week to the emergency room at [facility] with a baljit [facility] pain episode. [...] needed for Chest pain. 25 tablet 12 [place]-3 Fatty Acids (SALMON OIL-1000 PO) CAPS, one [...] cannot completely be ruled out. D. [facility] 12/25/13, shows noncritical coronary artery disease, mild ecstatic change to the le ft main artery, the coronary circulation is right dominant, normal left ventricular size, wa ll thickness and motion, preserved left ventricular systolic function, LVEF is 75%, normal s ystemic blood pressure, successful TR band application to the right radial artery. E. patient was seen on the emergency room at [place] on 01/26/2014, he was ruled out A [...] pain. He is in class II of [place] Heart Association functional class. There are no [...] to go back in 3 days to [place] for an attempt of ablation under general [...] symptoms. He is in class II of [place] Heart Association functional class. There are no [...] made to ensure accuracy; however, inadvertent computerized television actor errors may be pre sent. Electronically signed by: PARISA Russell 01/29/2014 14:08 documented in this encounter Procedure Notes ONDAVON VAZQUEZ - 01/29/2014 12:00 AM PDTAssociated Order(s): ECG - EXTERNAL SCANElectroni elida signed by Randa Melo at 02/02/2014 4:42 PM PDTdocumented in this encounter Plan of [...] | | | | | | [place] [address] | | | | | | [phone] | | | | | | | [...] [place] or graft | + + | Hyperlipidemia Other and unspecified hyperlipidemia | + + | Symptomatic PVCs Other premature beats | + + | Hypertension Unspecified essential hypertension | + + documented in this encounter
--- OUTSIDE RECORDS SUMMARY | ~2020-06-15 | XMS | Encounter Summary ---
Demographics + + + | Address | [address] | | | [place] [address] | + + + | Home Phone [...] 2019 | | GASTROENTEROLOGY | [address], [place] | | | | | [address] [place] | [address] [place], [place] | | | | | [address] [place], [place] | [address] | | | | | [address] | | | | | | [phone] | | | +--------+ + + + [...] this phone call to Dr. Rios at [facility], as Dr. Daniel is not seeing arian ents anymore, and for him to wait for Dr. Bowen office to call him back.Electronically si gned by Kailyn Gutierrez CMA at 10/06/2019 8:22 AM PSTTelephone Encounter - Kailyn Gutierrez CMA - 10/04/2019 4:35 PM PSTPatient has seen Bridgette Rios MD at [facility] on 09/28/2019, and h as a phone call into her office as well.Electronically signed by Kailyn Gutierrez CMA at 09/22 4:36 PM PSTTelephone Encounter - Amada Starr - 10/04/2019 9:03 AM Amilcar Krishnamurthy, would like a return call from clinical staff for triage. Patient states that he is doing worse than ever. Will route to clinical staff, please advise. Phone number: [phone] signed by Amada Starr at 10/04/2019 9:17 [...] | | | | | | [place] [address] | | | | | | [phone] | | | | | | | | +--------+ + + + + documented as of this encounter Visit Diagnoses Not on filedocumented in this encounter"
--- OUTSIDE RECORDS SUMMARY | ~2020-06-15 | XMS | Encounter Summary ---
Demographics + + + | Address | [address] | | | [place] [address] | + + + | Home Phone [...] Providers + +------+ + | Care Manager Farm Name | Role | Phone | [...] Refill | | 2014 | | [facility] [place] | DO [address] | | | | | [address] | [place] | | | | | [place] | [address] | | | | | [address] | | | | | | [phone] | | | +--------+--------+ + + + [...] | | | | | | [place] [address] | | | | | | [phone] | | | | | | | | +--------+ + + + + documented as of this encounter Visit Diagnoses Not on filedocumented in this encounter"
--- OUTSIDE RECORDS SUMMARY | ~2020-06-15 | XMS | Encounter Summary ---
Demographics + + + | Address | [address] | | | [place] [address] | + + + | Home Phone [...] pain, | Michael Olvera MD | MD Dalijt | | | | | unspecified | [address] | | | | | ER FUP | [address] | [address] | | | | | Procedures | [place], | [place], | | | | | [place] | [place] [address] | [place] [address] | | | | | | Phone: | Phone: | | | | | | [phone] | [phone] | | | | | | Fax: | Fax: | | | | | | [phone] | [phone] | +--------+--------+ + + + + Encounter Details +--------+---------+ + + + | Date | Type | Department | Care Team | Description | +--------+---------+ + + + | 02/11/ | Office | [facility] [place] | [place], | Coronary artery | | 2017 | Visit | CARDIOLOGY [address] | [place] [address] | disease involving | | | | [place], | [place], | alutiiq coronary | | | | [place] [address] | [place] [address] | artery of alutiiq | | | | [phone] | [phone] | heart without angina | | | [...] of non-critical coronary artery d isease involving alutiiq coronary artery of alutiiq heart without angina pectoris, essential h ypertension, [...] him. He sleeps on 1 pillow at [facility] without any shortness of [...] Preventative health care Coronary artery disease involving alutiiq coronary artery of alutiiq heart without angina pectoris Cannabis abuse, daily [...] 3RD DOSE, CALL 911 100 tablet 3 [place]-3 Fatty Acids (SALMON OIL-1000 PO) CAPS, one [...] was found Confirmed by ANGELA MARADIAGA MD ([id number]) on 01/25/2017 6:45:26 AM LAB RESULTS reviewed [...] PLTEX 162 11/05/2016 I reviewed records from [facility] for emergency department visit o n 01/2017 which is summarized in the HPI. Above data and testing is reviewed this visit; testing below is historical data unless othe rwise specified. ASSESSMENT: 1. Essential hypertension with goal blood pressure less than 130/80: A. Today it has been well controlled 110 mmHg. He is in class I of t he [place] Heart Association functional class. On physical examination there are no signs of fluid overload. 2. Non-critical Coronary artery disease involving alutiiq coronary a rtery of alutiiq heart without angina pectoris: A. Normal exercise [...] to go back in 3 days to [place] for an attempt of ablation under general [...] this chart may have been created with [employer] voice recognition software. Occasi onal wrong-word [...] | 10/30/ | Office | Cardiology | [place], | | | 2019 | Visit | | [place] [address] | | | | | | [place], | | | | | | [place] [address] | | | | | | [phone] | | | | | | | | +--------+ + + + + documented as of this encounter Visit Diagnoses + + | Diagnosis | + + | Coronary artery disease involving alutiiq coronary artery of alutiiq heart without | | angina pectoris - Primary | + + | Essential hypertension with goal blood pressure less than 130/80 | + + | Hyperlipidemia, mixed Mixed hyperlipidemia | + + documented in this encounter
--- OUTSIDE RECORDS SUMMARY | ~2020-06-15 | XMS | Encounter Summary ---
Demographics + + + | Address | [address] | | | [place] [address] | + + + | Home Phone [...] Providers + +------+ + | Care Facilities Maintenance Worker Name | Role | Phone [...] | | | | CENTER [address] | [address] | | | | | [place] | [place] | | | | | [address] | [address] | | | | | [phone] | | | +--------+ + + + [...] + + + +---------+ + + | [place]-3 Fatty | CAPS, one capsule by | [...] | | | | | | | knik coronary | | | | | | | artery of knik | | | | | | | [...] + documented as of this encounter ED Tanmay Tim RN - 06/02/2019 8:42 PM PDTPt discharged to home by self. Instructions given to pt both verbally and in writing. Pt sts understanding of hs instructions at time o f discharge arks, Jason ludin Palacios MD - 06/02/2019 8:24 PM PDTFormatting of this note might be different fr om the original. [facility] Sanchez Emergency Department Encounter Note [address] [place] [address] PCP:Kirk French MD [phone] eMERGENCY dEPARTMENT eNCOUnter [...] CV LHC; Surgeon: Daljit Singletary MD; Location: [facility] CV LAB CARDIAC CATHERIZATION N/A 01/25/2019 Procedure: CV Cor Angio; Surgeon: Daljit Singletary MD; Location: [facility] CV LAB COLONOSCOPY N/A 12/24/2017 Procedure: COLONOSCOPY; Surgeon: Emmanuel Daniel MD; Location: [facility] MEDICAL PROCEDURE UNIT COLONOSCOPY N/A 01/05/2019 Procedure: COLONOSCOPY; Surgeon: Emmanuel Daniel MD; Location: [facility] MEDICAL PROCEDURE UNIT EGD 12/24/2017 [...] Procedure: EGD; Surgeon: Emmanuel Daniel MD; Location: [facility] MEDICAL PROCEDURE UNIT UPPER GASTROINTESTINAL ENDOSCOPY N/A 01/05/2019 Procedure: EGD; Surgeon: Emmanuel Daniel MD; Location: [facility] MEDICAL PROCEDURE UNIT URETEROSCOPY Left 04/13/2019 Procedure: Cystoscopy, Left ureteroscopy with laser lithotripsy, Left ureteral stent place ment; Surgeon: Matthew Uriarte MD; Location: [facility] MAIN OR VASECTOMY CURRENT MEDICATIONS RAILWAY SWITCHMAN Home Medications Medication Sig amLODIPine (NORVASC) 5 [...] NO RELIEF AFTER 3RD DOSE, CALL 911 [place]-3 Fatty Acids (SALMON OIL-1000 PO) CAPS, one [...] deficits noted, no facial assymetry noted. Equal gunner mate in all extremities EKG Interpretation Interpreted by emergency department physician Rhythm: normal sinus atrial paced Rate: 73 [place]: normal Ectopy: none Conduction: P wave normal, [...] this chart may have been created with [employer] voice recognition software. Occasi onal wrong-word or [...] | | | | | | [place] [address] | | | | | | [phone] | | | | | | | [...] | | | 2018 | | | 6:31 | | | [...] W?MRN: | | | | | | [id number] | | | [id number] | | | riteri | | | [...] | | | St. | | | [place] | | | y | | | [...] | | | St. | | | [place] | | | y | | | [...] | | | St. | | | [place] | | | y H. | | [...] | | | St. | | | [place] | | | y H. | | [...] | | | M.D. | | | Tank Builder And Erector | | | al | | | [...] | | | ent/60 | | | [id number] | | | -[phone]- | | | [...] | | | Comment:Reference | | [facility] [place] | | | | Ranges: 0.00-0.06 = [...] | | | | | | [employer] | | | | | [...] + | [facility] | [address] | [place] | [phone] | | [facility] | | [address] | | | - LABORATORY | | [...] [address] | [place] | [phone] | | [facility] | | [address] | | | - LABORATORY | | [...] in | 12 - 53 U/L | [place] | | | | use as of January 18 | | [facility] | | | | 2018. [...] [address] | [place] | [phone] | | [facility] | | [address] | | | - LABORATORY | | [...] | 0.92 | 0.70 - 1.30 | [facility] | | | | | mg/dL | [facility] | | | | | | MEDICAL | | | | | | CENTER - | | | | | | LABORATORY | | + + + + + + | eGFR if not | >60Comment: GLOMERULAR | >=60 | [facility] | | | | FILTRATION | mL/min/1.73m2 | [facility] | | | LITHUANIAN | RATE,ESTIMATED | | MEDICAL | | | | mL/min/1.64u5Vjsi than | | CENTER - | | [...] | 9.6 | 8.7 - 10.4 | [facility] | | | | | mg/dL | [facility] | | | [...] + | [facility] | [address] | [place] | [phone] | | [facility] | | [address] | | | - LABORATORY | | [...] | | Immature | | K/uL | Juan Diego MARTINEZ | | | Granulocyte | [...] + | [facility] | [address] | [place], [place] | [phone] | | [facility] | | [address] | | | - LABORATORY | | [...] [address] | [place] | [phone] | | [facility] | | [address] | | | - LABORATORY | | [...] | | | | ANGELA MARADIAGA MD ([id number]) | | | | | | on [...] | | | | | Patient Address: [address] [place] [address] | | | | | | | [place] [address], | | | | | | + + + +------+---+---+ +---+---+ | | | +---+---+ documented in this encounter
--- OUTSIDE RECORDS SUMMARY | ~2020-06-15 | XMS | Encounter Summary ---
Demographics + + + | Address | [address] [place] [address] [place] [address] | | | [place] [address] | + + + | Home Phone | | + + + | Preferred Language | Unknown | + + + | Marital Status | | + + + | [employer] Affiliation | Unknown | + + + [...] [place] | | | | | [address] | | + + + + + Care Team Providers + +------+ + | Care Network Developer Name | Role | Phone | [...] | | | | | unspecified | [address] | | | | | | type Rectal | Ave | | | | | | bleeding | [facility] [place] | | | | | | Procedures | [address] | | | | | | CONSULT TO | Phone: | | | | | | GASTROENTERO | [phone] | | | | | | LOGY | Fax: | | | | | | | [phone] | | + +--------+ + + + [...] | | | | | Procedures | [place], [place] | [facility] and | | | | | CONSULT TO | [address] | Healing, | | | | | ENDOSCOPY | Phone: | Building [address] | | | | | UNIT: SM | [phone] | [place], [place] | | | | | [address] | Fax: | [address] | | | | | CAPSULE | [phone] | Phone: | | | | | ENDOSCOPY | | [phone] | | | | | | | Fax: | | | | | | | [phone] | + +--------+ + + + + [...] | | | | | bleeding | [place], [place] | [facility] and | | | | | Procedures | [address] | Healing, | | | | | CONSULT TO | Phone: | Building [address] | | | | | ENDOSCOPY | [phone] | [place], [place] | | | | | UNIT: | Fax: | [address] | | | | | COLONOSCOPY | [phone] | Phone: | | | | | | | [phone] | | | | | | | Fax: | | | | | | | [phone] | +--------+--------+ + + + + Reason [...] | | Center at [facility] [address] | MD [address] | | | | | [address] [place] | [place], [place] | | | | | for Health and | [address] | | | | | Healing, [address] | [phone] | | | | | [place], [place] | | | | | | [address] | | | | | | [phone] | | | +--------+ + + + [...]
--- OUTSIDE RECORDS SUMMARY | ~2020-06-15 | XMS | Encounter Summary ---
Demographics + + + | Address | [address] | | | [place] [address] | + + + | Home Phone [...] Providers + +------+ + | Care Inspector Tester Sorter Name | Role | Phone | [...] [facility] | [address], [place] | | | | | [address] | [address] [place], [place] | | | | | [place], [place] | [address] | | | | | [address] | | | | | | [phone] | | | +--------+---------+ + + + [...] + + + +---------+ + + | [place]-3 Fatty | CAPS, one capsule by | [...] any noct urnal symptoms. He was in [facility] 2 years ago and required hospitalization [...] severe diarrhea probable infective occurring while visiting [facility] Diarrhea etiology and significance to [...] Endoscopy Patient: Moe Sanchez : 1960 Acct: [id number] Exam Date: Sunday, December 24, 2017 Doctor: [...] If unable to reach your physician, call [facility] Department at [address]. [phone] Your doctor [...] Exams Patient: Moe Sanchez : 1960 Acct: [id number] Exam Date: Sunday, December 24, 2017 Doctor: [...] If unable to reach your physician, call [facility] Emergency Department at [address]. [address] Your doctor [...] [address] | | | | | | [address], | | | | | | [place] [address] | | | | | | [phone] | | | | | | | [...] + | Performed at: 01 - [address] [address], | REFERENCE LAB | | [place], [place] [id number] Evaporator Operator: William Andrew MD, Phone: | [facility] | | [phone] | | + + + + + + + + | Performing | Address | City/State/Zipcode | Phone Number | | Organization | | | | + + + + + | REFERENCE LAB | [address] | [place], [place] | [phone] | | [facility] | [address] | [address] | | + + + + + [...] [address] | [place] | [phone] | | [facility] | | [address] | | | - LABORATORY | | [...] [address] | [place] | [phone] | | [facility] | | [address] | | | - LABORATORY | | [...] [address] | [place] | [phone] | | [facility] | | [address] | | | - LABORATORY | | [...] + + | Performed at: 01 - [address] [address], | REFERENCE LAB | | [place], [place] [id number] Evaporator Operator: William Andrew MD, Phone: | [facility] | | [phone] | | + + + + + + + + | Performing | Address | City/State/Zipcode | Phone Number | | Organization | | | | + + + + + | REFERENCE LAB | [address] | [place], [place] | [phone] | | [facility] | Drive [facility] | [address] | | + + + + + [...] ST. | [address] | [place] | [phone] | | [facility] | | [address] | | | - LABORATORY | | [...] [address] | [place] | [phone] | | [facility] | | [address] | | | - LABORATORY | | [...] [address] | [place] | [phone] | | [facility] | | [address] | | | - LABORATORY | | [...] [address] | [place] | [phone] | | [facility] | | [address] | | | - LABORATORY | | [...] r pylori Ag | | | [facility] | | | | | | MEDICAL [...] ST. | [address] | [place] | [phone] | | [facility] | | [address] | | | - LABORATORY | | | | + + + + + EGD (12/24/2017 1:19 PM PST) + + | Specimen | + + | | + + + + -+ | Narrative | Performed At | + + -+ | | [facility] | | GastroenterologyPatient Name: Moe SanchezProcedure Date: 12/24/2017 | [facility] | | 1:19 PMMRN: [id number] #: [id number] of : | | | 9Admit Type: AmbulatoryAge: 57Room: [facility] 01Gender: MaleNote | | | Status: FinalizedAttending MD: Emmanuel Daniel , [facility]cedure: | | | Upper GI endoscopyIndications: Diarrhea, Weight | | | lossProviders: Emmanuel Daniel MD, Maria Isabel oMrris RN, | | | Kim Hicks, Telephone Lineworker, [place] | | | Sapna Barakat MD (Anesthesia [...] the anesthesiologist and | | | the watch repair technician in the endoscopy suite. Mental Status [...] PMScope Out: 1:31:13 PM | | | [facility], [address] [facility] | | | [place] [address] | | | - Discharge patient to [...] |Scope Out: 1:31:13 PM | | | [facility], [address], [place] | | | [address] | | + + -+ + +---------+ + + | Performing | Address | City/State/[facility] Cent[facility]ode | Phone Number | | [...] 12/24/2017 | [place] | | 1:17 PMMRN: [id number] #: [id number] of : | | | 9Admit Type: AmbulatoryAge: 57Room: [facility] 01Gender: MaleNote | | | Status: FinalizedAttending MD: Emmanuel Daniel , MDProcedure: | | | ColonoscopyIndications: Clinically significant diarrhea of | | | unexplained originProviders: Emmanuel Daniel MD, Maria Isabel | | | Arturo, RN, Kim Hicks, Telephone Lineworker, | | | Jarett Barakat MD (Anesthesia [...] | | | the anesthesiologist and the watch repair technician in the endoscopy suite. | [...] Scope In: 1:32:55 PMScope Out: 1:48:57 PM [facility] | | | [facility], [address] [place] [address] | | | [phone] | | | - Await pathology results. [...] |Scope Out: 1:48:57 PM | | | [facility], [address] [place] | | | [address] | | + + -+ + +---------+ [...] developed and its performance characteristics determined by [facility] | | | [facility]. It has not been cleared or approved by the U.S. Food | | | and Drug Administration. The FDA has determined that such clearance | | | or approval is not necessary. This test is used for clinical | | | purposes. It should not be regarded as investigational or for | | | research. [facility] is certified under the Clinical | | | Laboratory Improvement Amendments of 1988 (CLIA) as qualified to | | | perform high complexity clinical laboratory testing. This assay | | | has not been validated for specimens that have been decalcified. | | | PERFORMING LABORATORY: Tissue processing and slide preparation were | | | performed by [facility], [address], [facility] | | | [place] [address] (Drywall Installer: Evan Frausto M.D. CLIA#: | | | [id number]). Professional interpretation was performed by [facility] | | | [facility], [address], [place] [address] | | | (Drywall Installer: Evan Frausto M.D.; CLIA#: [id number]). | | | Diagnostician: Rafael Bales MD [...]
--- OUTSIDE RECORDS SUMMARY | ~2020-06-15 | XMS | Encounter Summary ---
Demographics + + + | Address | [address] | | | [place] [address] | + + + | Home Phone [...] Providers + +------+ + | Care Sql Data Architect Name | Role | Phone | [...] | SR | | | | | [address] | | | | | | [place], [place] | | | | | | [address] | | | | | | [phone] | | | +--------+ + + + [...] | | | | | | [place] [address] | | | | | | [phone] | | | | | | | [...]
--- OUTSIDE RECORDS SUMMARY | ~2020-06-15 | XMS | Encounter Summary ---
Demographics + + + | Address | [address] | | | [place] [address] | + + + | Home Phone [...] + + | 12/23/ | Emergency | [facility] | Cristal Alexander, | Chronic neck pain; | | 2014 | | [facility]ICAL [facility]ENTER | DO [address] | Headache(784.0) | | | | EMERGENCY CENTER | [place] [address] | | | | | [address] | [phone] | | | | | [place], [place] | | | | | | [address] | | | | | | [phone] | | | +--------+ + + + [...] + + + +---------+ + + | [place]-3 Fatty | CAPS, one capsule by [...] | | | | | | | #[id number], exp 07/2016 | | | | | [...] Notes by Cristal Alexander DO at 12/23/14 7092 Author: Cristal Alexander DO Service: Emergency Department Author Type: Physician Filed: 12/27/14 1135 Date of Service: 12/23/141727 Status: Signed Nuclear Spectroscopist: Cristal Alexander DO (Physician) Procedures Additional Documentation Procedures [facility] Department of Emergency Medicine HPI History [...] patient has had neuroimaging in the past. [facility] is doing pain management. Past Medical [...] Follow up With Details Comments Contact Info [facility] this week [address] [facility] [address] [facility] [address] Kirk French MD Discharge Medications: Discharge Medication List as of 12/23/2014 7:31 PM START taking these medications Details methocarbamol (ROBAXIN) 750 MG tablet Take 2 tablets by mouth every 6 (six) hours as needed (pain)., Starting 12/23/2014, Until 01/02/15, Print Cristal Alexander DO 12/27/14 3028 onversion Transacti on, Provider Unknown - 12/23/2014 5:22 PM PSTFormatting of this note might be different fro m the original. ED Notes by Bandar Stephenson RN at 12/23/141721 Author: Bandar Stephenson RN Service: (none) Author Type: Registered Nurse Filed: 12/23/141724 Date of Service: 12/23/141721 Status: Signed Nuclear Spectroscopist: Bandar Stephenson RN (Registered Nurse) Pt states [...] | | | | | | [place] [address] | | | | | | [phone] | | | | | | | [...] 07/07/2019 5:05 AM PDT PINA Hermosillo VICTOR [id number] years MaleCT | | CERVICAL SPINE WO [...]
--- OUTSIDE RECORDS SUMMARY | ~2020-06-15 | XMS | Encounter Summary ---
Demographics + + + | Address | [address] | | | [place] [address] | + + + | Home Phone [...] Providers + +------+ + | Care Retail Center Receptionist Name | Role | Phone | [...] [address] | | | | | [address] | [place], [place] | | | | | [phone] | [address] | | | | | | [phone] | | | | | | | [...] documented as of this encounter Progress Notes Imani Jaime, Provider Unknown - 04/11/2018 11:59 PM PDTFormatting of this note m ight be different from the original. Progress Notes by Kylah Fraser CMA at 04/11/18 8255 Author: Kylah Fraser CMA Service: (none) Author Type: Physical Chemist Filed: 04/19/18 1118 Encounter Date: 04/11/2018 Status: Signed Exchange Floor Manager: Kylah Fraser CMA (Physical Chemist) See telephone encounter 04/19/18. docume nted in this encounter Plan of [...] | | | | | | [place] [address] | | | | | | [phone] | | | | | | | [...]
--- OUTSIDE RECORDS SUMMARY | ~2020-06-15 | XMS | Encounter Summary ---
Demographics + + + | Address | [address] | | | [place] [address] | + + + | Home Phone [...] Team Providers + +------+ + | Care Early Childhood Aide Classroom Name | Role | Phone | + [...] [address] | | | | | [place], | [place], | | | | | [place] [address] | [place] [address] | | | | | [phone] | [phone] | | | | | | | [...] | | | | | | [place] [address] | | | | | | [phone] | | | | | | | [...]
--- OUTSIDE RECORDS SUMMARY | ~2020-06-15 | XMS | Encounter Summary ---
Demographics + + + | Address | [address] | | | [place] [address] | + + + | Home Phone [...] + +------+ + | Care Die Maker Electronic Name | Role | Phone | + [...] + + | 05/14/ | Office | [facility] | [place], | Coronary artery | | 2013 | Visit | CARDIOLOGY [address] | [address] | disease (Primary | | | | [place], | [place], | Dx); Hypertension; | | | | [place] [address] | [place] [address] | Hyperlipidemia; | | | | [phone] | [phone] | Syncope; Other chest | | | [...] needed for Chest pain. 25 tablet 12 [place]-3 Fatty Acids (SALMON OIL-1000 PO) CAPS, one [...] attenuation cannot completely be ruled out. D. [facility] 12/25/13, shows noncritical coronary artery disease, [...] exercising. He is in class II of [place] [...] to go back in 3 days to [place] for an attempt of ablation under general [...] palpitations.. He is in class II of [place] [...] bring in his blood pressure logs from [facility]. Lightheadedness and dizziness/ presyncope: A. Episode [...] to ensure accuracy; however, inadvertent computerized director energy errors may be pre sent. Electronically signed by: PARISA Russell 05/14/2014 7:40 documented in this encounter Procedure Notes [facility] - 05/14/2014 12:00 AM PDTAssociated Order(s): ECG [...] | | | | | | [place] [address] | | | | | | [phone] | | | | | | | [...] of unspecified type of | | vessel, yocha dehe or graft | + + | Hypertension Unspecified essential hypertension | + + | Hyperlipidemia Other and unspecified hyperlipidemia | + + | Syncope Syncope and collapse | + + | Other chest pain | + + | Chest pain Chest pain, unspecified | + + documented in this encounter
--- OUTSIDE RECORDS SUMMARY | ~2020-06-15 | XMS | Encounter Summary ---
Demographics + + + | Address | [address] | | | [place] [address] | + + + | Home Phone [...] Team Providers + +------+ + | Care Accredited Legal Secretary Name | Role | Phone | + +------+ + | Kirk French MD | PCP | | + +------+ + Encounter Details +--------+ + + + + | Date | Type | Department | Care Team | Description | +--------+ + + + + | 04/11/ | Orders Only | [facility] | Emmanuel Pool | | | 2018 | | [address] | MD William [address] | | | | | [place] | [address] | | | | | [address] | [place], [place] | | | | | [phone] | [address] | | | | | | [phone] | | | | | | | [...] Notes by Kylah Fraser CMA at 04/11/18 4952 Author: Kylah Fraser CMA Service: (none) Author Type: Handicraft Or Hobby Shop Manager Filed: 04/19/18 1118 Encounter Date: 04/11/2018 Status: Signed Director Database: Kylah Fraser CMA (Handicraft Or Hobby Shop Manager) See telephone encounter 04/19/18. docume nted in [...] | | | | | | [place] [address] | | | | | | [phone] | | | | | | | [...]
--- OUTSIDE RECORDS SUMMARY | ~2020-06-15 | XMS | Encounter Summary ---
Demographics + + + | Address | [address] | | | [place] [address] | + + + | Home Phone [...] Providers + +------+ + | Care Turn Operator Name | Role | Phone | [...] | CARDIOLOGY [address] | Interrogation | | | | [place], | [place], | (Primary Dx); | | | | [place] [address] | [place] [address] | Presence of | | | | [phone] | [phone] | permanent cardiac | | | | [...] Paceart documentation and remote PDF scanned into [employer] for remote interrogation re sults. Data collected [...] | | | | | | [place] [address] | | | | | | [phone] | | | | | | | [...] remote PDF scanned into | | | [facility] for remote interrogation results. Data [...]
--- OUTSIDE RECORDS SUMMARY | ~2020-06-15 | XMS | Encounter Summary ---
Demographics + + + | Address | [address] | | | [place] [address] | + + + | Home Phone [...] Providers + +------+ + | Care Laborer Pole Crew Name | Role | Phone | + [...] + + | 05/14/ | Office | [facility] | [place], | Coronary artery | | 2013 | Visit | CARDIOLOGY [address] | [address] | disease (Primary | | | | [place], | [place], | Dx); Hypertension; | | | | [place] [address] | [place] [address] | Hyperlipidemia; | | | | [phone] | [phone] | Syncope; Other chest | | | [...] needed for Chest pain. 25 tablet 12 [place]-3 Fatty Acids (SALMON OIL-1000 PO) CAPS, [...] completely be ruled out. D. [facility] 12/25/13, shows noncritical coronary artery disease, [...] exercising. He is in class II of [place] Heart Association functional class. There are no [...] arrhythmia performed by Dr. Gambino at [facility] on 01/30/2013. Patient had spontaneous PVCs [...] to go back in 3 days to [place] for an attempt of ablation under general [...] palpitations.. He is in class II of [place] Heart Association functional class. There are no [...] bring in his [facility] logs from [facility] 5. Lightheadedness and dizziness/ presyncope: [...] made to ensure accuracy; however, inadvertent computerized vascular technologist sonographer errors may be pre sent. Electronically signed by: PARISA Russell 05/14/2014 7:40 documented in this encounter Procedure Notes [facility] - 05/14/2014 12:00 AM PDTAssociated Order(s): ECG [...] | | | | | | [place] [address] | | | | | | [phone] | | | | | | | [...] of unspecified type of | | vessel, [place] or graft | + + | Hypertension Unspecified essential hypertension | + + | Hyperlipidemia Other and unspecified hyperlipidemia | + + | Syncope Syncope and collapse | + + | Other chest pain | + + | Chest pain Chest pain, unspecified | + + documented in this encounter
--- OUTSIDE RECORDS SUMMARY | ~2020-06-15 | XMS | Encounter Summary ---
Demographics + + + | Address | [address] [place] [address] [address] | | | [place] [address] | + + + | Home Phone [...] [place] | | | | | [address] | | + + + + + Care Team Providers + +------+ + | Care Rn Informatics Name | Role | Phone | + [...] | | Bradycardia | | | | [place] [facility] | | | | | | and Healing, | | | | | | [address] | | | | | | [place], [place] | | | | | | [address] | | | | | | [phone] | | | +--------+------+ + + + [...] | | [facility] [place] [address] [facility] | REGIONAL | | [place] [address] | LABORATORY | + + + + + + + + | Performing | Address | City/State/Zipcode | Phone Number | | Organization | | | | + + + + + | [facility] | [address] | [place] [address] | | | LABORATORY | | | [...] RLB ([address] [facility]) | | | [place] [address] | | | [place] [address] | | + + + + + + + + | Performing | Address | City/State/Zipcode | Phone Number | | Organization | | | | + + + + + | [facility] | [address] | [place] [address] | | | LABORATORY | | | [...] | | | DEPARTMENT | | | [place] [facility] | | | OF | | | [...] + + + | [facility] | [address] | [place] [address] | | | PATHOLOGY | [address] | | | + + + + + documented in this encounter Visit Diagnoses + + | Diagnosis | + + | Chest pain Chest pain, unspecified | + + | Bradycardia Other specified cardiac dysrhythmias | + + documented in this encounter"
--- OUTSIDE RECORDS SUMMARY | ~2020-06-15 | XMS | Encounter Summary ---
Demographics + + + | Address | [address] | | | [place] [address] | + + + | Home Phone [...] Providers + +------+ + | Care Industrial Furnace Fabricator Name | Role | Phone | + +------+ + | Kirk French MD | PCP | | + +------+ + Encounter Details +--------+ + + + + | Date | Type | Department | Care Team | Description | +--------+ + + + + | 01/18/ | Hospital | [facility] | Conversion | Diagnosis unknown | | 2017 | Encounter | CONVERSION [address] | Transaction, | | | | [address] | Provider Unknown | | | | | [place], [place] | [phone] | | | | | [address] | | | | | | [phone] | | | +--------+ + + + [...] + + + +---------+ + + | [place]-3 Fatty | CAPS, one capsule by [...] | | | | | | [place], | | | | | | [place] [address] | | | | | | [phone] | | | | | | | [...]
--- OUTSIDE RECORDS SUMMARY | ~2020-06-15 | XMS | Encounter Summary ---
Demographics + + + | Address | [address] | | | [place] [address] | + + + | Home Phone [...] Team Providers + +------+ + | Care Ad Terminal Makeup Operator Name | Role | Phone | [...] | | | | CENTER [address] | [address] [place] | | | | | [place], [place] | [place] [address] | | | | | [address] | [phone] | | | | | [phone] | | | +--------+ + + + [...] + + +---------+ + + | [place]-3 Fatty | CAPS, one capsule by [...] might be differe nt from the original. [facility] Moe Sanchez Emergency Department Encounter Note [address] [place] [address] PCP:Kirk French MD x2500 DIAGNOSIS: 1. Bronchitis CHIEF COMPLAINT: Chief Complaint Patient presents with Cough Mode of Arrival: walk-in ED Room: ED04 [facility] Moe Sanchez is a 57 y.o. [...] performed by Dr. Gambino at [facility] on 01/30/2013. Patient had spontaneous PVCs [...] to go back in 3 days to [place] for an attempt of ablation under general [...] Left Heart Cath, 02/29/2012, LVEF is 65%, [facility] Nuclear Medicine Myocardial Gated Stress Test, 05/25/2009, EF 53 % during rest and 52% during stress. [place], [place]. Persantine Sestamibi Stress Test, 06/14/2008, LVEF is 60%, [facility] 12/25/13, shows noncritical coronary artery disease, mild [...] SERIAL# DATE IMPLANTED GENERATOR Medtronic DDD ADDR01 [id number] 06/14/09 RV LEAD Medtronic Active Bipolar CapSureFix 4076 [id number] 06/14/09 A LEAD Medtronic Active Bipolar CapSurFix 4076 [id number] 06/14/09 Depression with anxiety 12/24/2017 Priority: Medium Coronary artery disease involving chemehuevi coronary artery of chemehuevi heart without angina pectoris 12/21/2013 Priority: Medium [...] tissue attenuation cannot completely be ruled out. [facility] 12/25/13, shows non critical [...] Last Updated: 12/24/2017 Lower back injury (From [facility]) 1981 1985 Hyperlipidemia, mixed Priority: Low [...] 07/26/[address] Angiogram chest w/constrast 05/26/14 [facility] Hypoglycemia 09/20/2012 Bipolar disorder (HCC) Mixed [...] COLONOSCOPY; Surgeon: Emmanuel Daniel MD; Location: [facility] HARDWARE REMOVAL KNEE SURGERY 2003 meniscus-right LAMINECTOMY 1991 L3-4 LUMBAR DISCECTOMY 1991 L3-4 LUMBAR FUSION 01/2011 6 spine fusions neck fusion 08/10/2012 [place] NECK SURGERY PACEMAKER PLACEMENT 06/14/09 SHOULDER SURGERY 03/22/13 SINUS SURGERY 1997 SPINAL FUSION STOMACH SURGERY UPPER GASTROINTESTINAL ENDOSCOPY N/A 12/24/2017 Procedure: EGD; Surgeon: Emmanuel Daniel MD; Location: [facility] PROC[facility] UN[facility] VASECTOMY CURRENT MEDICATIONS Previous [...] take 1 tablet by mouth every evening [facility] NATURAL PRODUCTS (OSTEO BI-FLEX/5-LOXIN ADVANCED PO) Take [...] [place] Check glucose as needed for hypoglycemia PRAVASTATIN [...] Specialty: Internal Medicine Contact information: Eva DOMINGUEZ [address] [address] New Prescriptions AZITHROMYCIN (ZITHROMAX) 250 MG TABLET Take 2 tablets by mouth daily x 1 day, then take 1 tablet by mouth daily x 4 days. GUAIFENESIN (ROBITUSSIN) 100 MG/5ML LIQUID Take 10-20 mLs by mouth every 4 hours as nee ded for Cough. Portions of this chart were created with [email or web address] voice recognition software. Inadvertent so und alike substitutions may be present and are unintentional Martell Castillo MD 02/01/18 3305 Geri Barnes, Student WINDOW GLAZIER HELPER - 02/01/2018 1:48 PM PDTPt complains that he has bronchitis type symptoms x 3 d ays with cough and productive sputumElectronically signed by Geri Olivo, Student WINDOW GLAZIER HELPER at 1:49 PM PDTdocumented in this encounter [...] | | | | | | [place] [address] | | | | | | [phone] | | | | | | | [...] | | | 12:41? | | | NAATEN | | | , | | | NOMNA | | | ICK | | | W?MRN: | | | | | | [id number] | | | [id number] | | | his | | | [...] | | | ent/60 | | | [id number] | | | -[phone]- | | | [...] | | | St. | | | [place] | | | y H. | | [...] | | | St. | | | [place] | | | y H. | | [...] | | | St. | | | [place] | | | y H. | | [...] | | | St. | | | [place] | | | y H. | | [...] | | | St. | | | [place] | | | y | | | [...] | | | ext. | | | [address] | | | or go | | [...] [address] | [place], [place] | [phone] | | [facility] | | [address] | | | - LABORATORY | | [...] [address] | [place] | [phone] | | [facility] | | [address] | | | - LABORATORY | | [...] 10 | 7 - 18 mg/dL | [facility] | | | | | | [facility] | | | | | | MEDICAL | | | | | | CENTER - | | | | | | LABORATORY | | + + + + + + | Creatinine | 0.82 | 0.60 - 1.30 | [facility] | | | | | mg/dL | [facility] | | | | | | MEDICAL | | | | | | CENTER - | | | | | | LABORATORY | | + + + + + + | eGFR if not | >60Comment: GLOMERULAR | >=60 | [facility] | | | | FILTRATION | mL/min/1.73m2 | [facility] | | | [place] | RATE,ESTIMATED | | MEDICAL | | | | mL/min/1.87n2Bela than | | CENTER - | | [...] + | [facility] | [address] | [place] | [phone] | | [facility] | | [address] | | | - LABORATORY | | [...] [address] | [place] | [phone] | | [facility] | | [address] | | | - LABORATORY | | | | + + + + + documented in this encounter Visit Diagnoses + + | Diagnosis | + + | Bronchitis - Primary Bronchitis, not specified as acute or chronic | + + documented in this encounter
--- OUTSIDE RECORDS SUMMARY | ~2020-06-15 | XMS | Encounter Summary ---
Demographics + + + | Address | [address] | | | [place] [address] | + + + | Home Phone [...] Providers + +------+ + | Care Motion Study Engineer Name | Role | Phone | [...] 2019 | | GASTROENTEROLOGY | MD Sawyer [address] | | | | | [address] | Jay Crane. [place] | | | | | [address] | [place] [address] | | | | | [address] | | | | | | [phone] | | | +--------+ + + + [...] | | | | | | [place] [address] | | | | | | [phone] | | | | | | | [...] | | | | | Emmanuel Daniel [facility] | | | | + + [...]
--- OUTSIDE RECORDS SUMMARY | ~2020-06-15 | XMS | Encounter Summary ---
Demographics + + + | Address | [address] | | | [place] [address] | + + + | Home Phone [...] Team Providers + +------+ + | Care Import Export Clerk Name | Role | Phone | [...] + + | 03/07/ | Office | [facility] | [place], | SINUS BRADYCARDIA | | 2013 | Visit | CARDIOLOGY [address] | PARISA Vernon [address] | (Primary Dx); | | | | [place], | [place], | Syncope; Symptomatic | | | | [place] [address] | [place] [address] | PVCs; Pacemaker - | | | | [phone] | [phone] | Medtronic - ADDR01 | | | [...] Sanchez Date: March 07, 2014 : 1960 Parking Technician: Kailey Pruitt RN Device Pick Up And Delivery Driver:Medtronic Sense (mV) Impedance (?) Capture (V) Capture (ms) A Lead >5.60 402 1.500 0.09 RV Lead >31.36 522 2.00 0.09 LV Lead Battery Impedance (?): 528 Battery Voltage (V): 2.79 WI Interval (ms): 147 AR Interval (ms): 217 VA Conduction: Mode Switch Events: 0 % of time: 0 -COLLETER: <0.1% AP-COLLETER: 0.1% -VS: 23.8% AP-VS: 76.1% COLLETER: Magnetic Rate: 85 LINDA: 65 LEAH: Current [...] Pruitt RN 03/07/2014 12:00 Janeen Mccollum [place] EQUIPMENT VALIDATION SPECIALIST - 03/07/2014 11:07 AM PDT PATIENT NAME: [...] headaches. He paulino d been seen at [facility] a couple times with chest [...] needed for Chest pain. 25 tablet 12 [place]-3 Fatty Acids (SALMON OIL-1000 PO) CAPS, one capsule by mouth daily twice daily ONE TOUCH DELICA LANCETS [facility] Check glucose as needed for hypoglycemia 100 [...] Sanchez Date: March 07, 2014 : 1960 Parking Technician: Kailey Pruitt RN Device Pick Up And Delivery Driver:StayTunedtronic Sense (mV) Impedance (?) Capture (V) Capture (ms) A Lead >5.60 402 1.500 0.09 RV Lead >31.36 522 2.00 0.09 LV Lead Battery Impedance (?): 528 Battery Voltage (V): 2.79 WI Interval (ms): 147 AR Interval (ms): 217 VA Conduction: Mode Switch Events: 0 % of time: 0 -COLLETER: <0.1% AP-COLLETER: 0.1% -VS: 23.8% AP-VS: 76.1% COLLETER: Magnetic Rate: 85 LINDA: 65 LEAH: Current [...] attenuation cannot completely be ruled out. [facility] 12/25/13, shows noncritical coronary artery [...] pain. He is in class II of [place] [employer] Association functional class . There are [...] arrhythmia performed by Dr. Gambino at [facility] on 01/30/2013. Patient had spontaneous PVCs [...] to go back in 3 days to [place] for an attempt of ablation under general [...] palpitations.. He is in class II of [place] Heart Association functional class. There are no [...] bring in his blood pressure logs from [facility] e 5. Lightheadedness and dizziness/ presyncope: [...] made to ensure accuracy; however, inadvertent computerized land development project manager errors may be pre sent. Electronically signed by: PARISA Russell 03/07/2014 11:07 documented in this encounter Procedure Notes Kailey Pruitt RN - 03/07/2014 12:01 PM PDTAssociated Order(s): DEVICE INTERROGATIONProcedu re(s): DEVICE INTERROGATIONPre-Procedure Diagnose(s): Sinoatrial node dysfunction (HCC); Syn cope; Symptomatic PVCs; Presence of permanent cardiac pacemaker DEVICE INTERROGATION Name: Moe Sanchez Date: March 07, 2014 : 1960 Parking Technician: Kailey Pruitt RN Device Pick Up And Delivery Driver:StayTunedtronic Sense (mV) Impedance (?) Capture (V) Capture (ms) A Lead >5.60 402 1.500 0.09 RV Lead >31.36 522 2.00 0.09 LV Lead Battery Impedance (?): 528 Battery Voltage (V): 2.79 WI Interval (ms): 147 AR Interval (ms): 217 VA Conduction: Mode Switch Events: 0 % of time: 0 -COLLETER: <0.1% AP-COLLETER: 0.1% -VS: 23.8% AP-VS: 76.1% COLLETER: Magnetic Rate: 85 LINDA: 65 LEAH: Current [...] | | | | | | [place] [address] | | | | | | [phone] | | | | | | | [...] 07, 2014 : | | | 1960 Parking Technician: Kialey Pruitt RN Device | | | Pick Up And Delivery Driver:Shopow Sense (mV) Impedance (?) Capture (V) | | | Capture (ms) A Lead >5.60 402 1.500 0.09 RV Lead >31.36 522 2.00 | | | 0.09 LV Lead Battery Impedance (?): 528 Battery Voltage (V): | | | 2.79 WI Interval (ms): 147 AR Interval (ms): 217 VA Conduction: | | | Mode Switch Events: 0 % of time: 0 -COLLETER: <0.1% AP-COLLETER: 0.1% -VS: | | | 23.8% AP-VS: 76.1% COLLETER: Magnetic Rate: 85 LINDA: 65 LEAH: Current [...] | | Date: March 07, 2014DOB: 1960 Parking Technician: Kailey Pruitt RN Device | | Pick Up And Delivery Driver:Shopow Sense (mV) Impedance (?) Capture (V) Capture (ms) A Lead >5.60 | | 402 1.500 0.09 RV Lead >31.36 522 2.00 0.09 LV Lead Battery Impedance (?): 528 | | Battery Voltage (V): 2.79 WI Interval (ms): 147 AR Interval (ms): 217 VA Conduction: | | Mode Switch Events: 0 % of time: 0 -COLLETER: <0.1% AP-COLLETER: 0.1% -VS: 23.8% AP-VS: 76.1% | | COLLETER: Magnetic Rate: 85 LINDA: 65 LEAH: Current [...]
--- OUTSIDE RECORDS SUMMARY | ~2020-06-15 | XMS | Encounter Summary ---
Demographics + + + | Address | [address] | | | [place] [address] | + + + | Home Phone [...] Providers + +------+ + | Care Survey Worker Name | Role | Phone | [...] | | | 2013 | | [facility] | DO [address] | | | | | [address] | [place] | | | | | [place] | [address] | | | | | [address] | | | | | | [phone] | | | +--------+ + + + [...] | | | | | | [place] [address] | | | | | | [phone] | | | | | | | [...] | | Total | | | [facility] | | [...] + | [facility] | [address] | [place], [place] | [phone] | | [facility] | | [address] | | | - LABORATORY | | | | + + + + + | [facility] | [address] | [place] | | | [facility] | | [address] [place] [address] | | | - LABORATORY | | [...] | | | | | | | Palestinian, | | | | | | External [...]
--- OUTSIDE RECORDS SUMMARY | ~2020-06-15 | XMS | Encounter Summary ---
Demographics + + + | Address | [address] | | | [place] [address] | + + + | Home Phone [...] Team Providers + +------+ + | Care Frame Wirer Name | Role | Phone | + +------+ + | Kirk French MD | PCP | | + +------+ + Encounter Details +--------+ + + + + | Date | Type | Department | Care Team | Description | +--------+ + + + + | 06/03/ | Hospital | [facility] | Conversion | Back pain, | | 2014 | Encounter | CONVERSION DEP [address] | Transaction, | unspecified location | | | | [address] | Provider Unknown | | | | | [place], [place] | [phone] | | | | | [address] | (Fax) | | | | | [phone] | | | +--------+ + + + [...] | | | | | | | #[id number], exp 07/2016 | | | | | [...] W | | | | | | [place], | | | | | | [place] [address] | | | | | | [phone] | | | | | | | [...]
--- OUTSIDE RECORDS SUMMARY | ~2020-06-15 | XMS | Encounter Summary ---
Demographics + + + | Address | [address] | | | [place] [address] | + + + | Home Phone [...] Team Providers + +------+ + | Care Woodworking Machine Setter Name | Role | Phone [...] Dx) | | | | [address] [place] | [place], | | | | | [place] | [place] [address] | | | | | [address] | [phone] | | | | | [phone] | | | +--------+ + + + [...] W | | | | | | [place], | | | | | | [place] [address] | | | | | | [phone] | | | | | | | [...]
--- OUTSIDE RECORDS SUMMARY | ~2020-06-15 | XMS | Encounter Summary ---
Demographics + + + | Address | [address] | | | [place] [address] | + + + | Home Phone [...] Providers + +------+ + | Care Tree Feller Operator Name | Role | Phone | + +------+ + | Michael Amanda DO | PCP | | + +------+ + Reason for Visit +--------+--------+ + | Reason | Onset | Comments | | | Date | | +--------+--------+ + | Other | 09/08/ | Patient wants to be referred sooner | | | 2012 | | +--------+--------+ + Encounter Details +--------+ + + + + | Date | Type | Department | Care Team | Description | +--------+ + + + + | 09/08/ | Telephone | [facility] | Geri Angel, | Other (Patient wants | | 2012 | | CARDIOLOGY [address] | WOODEN FRAME BUILDER [address] | to be referred | | | | [place], | [place], [place] | soon) | | | | [place] [address] | [address] | | | | | [phone] | | | +--------+ + + + [...] Telephone Encounter - Darlene Tirado RN - 09/08/2013 4:12 PM PDTFred notified ......... 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 The patient had this done in [place], but he does not want to return there as he has no place to stay locally and would prefer to do a consul tation in [place]. Can you please let patient know that we will do the referral. Thanks! ...........................................PARISA Walton on 09/08/2013 at 16:05 elephone Encounter - Darlene Tirado RN - 09/08/2013 3:21 PM PDTFred called today and left a message on my v ayde. He would like to be referred to [facility] for his PVC's now rather than wait for 3 months. He does not like the PVC's, they are frequent and they scare him. I will consul corie Geri and then call him back with instructions. ........................................... Darlene Tirado RN on 09/08/2013 at 15:22 documented in this encounter Plan of Treatment [...] | | | | | | [place] [address] | | | | | | [phone] | | | | | | | | +--------+ + + + + documented as of this encounter Visit Diagnoses Not on filedocumented in this encounter"
--- OUTSIDE RECORDS SUMMARY | ~2020-06-15 | XMS | Encounter Summary ---
Demographics + + + | Address | [address] | | | [place] [address] | + + + | Home Phone [...] Providers + +------+ + | Care Supervisor Counseling And Guidance Name | Role | Phone | + +------+ + PCP | Unavailable | + +------+ + Encounter Details +--------+ + + + + | Date | Type | Department | Care Team | Description | +--------+ + + + + | 05/02/ | [facility] | [facility] | Jonathan, | | | 2009 | Encounter | [facility] EM[facility] | Martell Cr MD [address] | | | | | CENTER [address] | [address] [place] | | | | | [place] | [place] [address] | | | | | [address] | [phone] | | | | | [phone] | | | +--------+ + + + [...] | | | | | | [place] [address] | | | | | | [phone] | | | | | | | | +--------+ + + + + documented as of this encounter Visit Diagnoses Not on filedocumented in this encounter"
--- OUTSIDE RECORDS SUMMARY | ~2020-06-15 | XMS | Encounter Summary ---
Demographics + + + | Address | [address] | | | [place] [address] | + + + | Home Phone [...] Providers + +------+ + | Care Cnc Machine Setter Name | Role | Phone [...] [address] | | | | | [place], | [place], | | | | | [place] [address] | [place] [address] | | | | | [phone] | [phone] | | | | | | | [...] | | | | | | [place] [address] | | | | | | [phone] | | | | | | | | +--------+ + + + + documented as of this encounter Visit Diagnoses Not on filedocumented in this encounter"
--- OUTSIDE RECORDS SUMMARY | ~2020-06-15 | XMS | Encounter Summary ---
Demographics + + + | Address | [address] [place] [address] [address] | | | [place] [address] | + + + | Home Phone [...] [place] | | | | | [address] | | + + + + + Care Team Providers + +------+ + | Care Lifts And Cranes Inspector Name | Role | Phone | [...] Yao | | | | | at [facility] | [facility] | | | | | [address] | [place] [address] | | | | | [address] | | | | | | [place], [address] [place] [address] | | | | | | [place], [place] | | | | | | [address] | | | | | | [phone] | | | +--------+ + + + [...] image for the detailed interpretation from [employer] results. | CARDIOLOGY | + + + + + + + + | Performing | Address | City/State/Zipcode | Phone Number | | Organization | | | | + + + + + | [facility] | [address] | [place], [place] | | | CARDIOLOGY | [address] | [address] | | + + + + + documented in this encounter Visit Diagnoses Not on filedocumented in this encounter"
--- OUTSIDE RECORDS SUMMARY | ~2020-06-15 | XMS | Encounter Summary ---
Demographics + + + | Address | [address] | | | [place] [address] | + + + | Home Phone [...] Providers + +------+ + | Care Secretary Book Keeper Name | Role | Phone | [...] [address] | | | | | | [place], [place] | (Fax) | | | | | [address] | | | | | | [phone] | | | +--------+ + + + [...] | | | | | | [place] [address] | | | | | | [phone] | | | | | | | | +--------+ + + + + documented as of this encounter Visit Diagnoses Not on filedocumented in this encounter"
--- OUTSIDE RECORDS SUMMARY | ~2020-06-15 | XMS | Encounter Summary ---
Demographics + + + | Address | [address] | | | [place] [address] | + + + | Home Phone [...] Providers + +------+ + | Care Field Kiln Burner Name | Role | Phone | [...] + + | 05/26/ | Emergency | [facility] | Lizbeth Green | Atypical chest pain | | 2013 | | [facility] EM[facility]Y | DO Nicole Fink | (Primary Dx); | | | | CENTER [address] | [place], [place] | Anxiety | | | | [place], [place] | [address] | | | | | [address] | | | | | | [phone] | | | +--------+ + + + [...] might be diffe rent from the original. [facility] Moe Sanchez Emergency Department Encounter Note [address] [place] [address] PCP:Michael Amanda x2500 CHIEF COMPLAINT Chief Complaint [...] cm he has a cardiothoracic surgeon at [facility] who is going to be following him [...] Michael Amanda DO. (As needed) Contact information: [address] [place] [address] Lizbeth Green MD 05/27/14 1004 documented in this encounter Miscellaneous Notes Plan of Care - ONBASE SCAN [facility] - 05/28/2014 12:00 AM PDT D Triage [...] | | | | | | [place] [address] | | | | | | [phone] | | | | | | | [...] the uneventful IV administration of 80 mL [id number] contrast. Timing of | | contrast bolus [...] + | Performing | Address | City/State/Unm Hospitalcode | Phone Number | | Organization | | | | + +---------+ + + | MISCELL[facility]OUS LAB | | | [phone] | + +---------+ + + | MISCELANIOUS LAB | | | [phone] | + +---------+ + + Troponin I [...] | | | | | | [employer] | | | | | [...] + | [facility] | [address] | [place] | [phone] | | [facility] | | [address] | | | - LABORATORY | | | | + + + + + | [facility] | [address] | [place], [place] | | | [facility] | | [address] [place] [address] | | | - LABORATORY | | [...] | 0.89 | 0.60 - 1.30 | [facility] | | | | | mg/dL | [facility] | | | | | | MEDICAL | | | | | | CENTER - | | | | | | LABORATORY | | + + + + + + | eGFR if not | >60Comment: GLOMERULAR | >=60 | [facility] | | | | FILTRATION | mL/min/1.73m2 | [facility] | | | SAMMARINESE | RATE,ESTIMATED | | MEDICAL | | | | mL/min/1.54r6Rgrl than | | CENTER - | | [...] | 9.4 | 8.3 - 10.5 | [facility] | | | | | mg/dL | [facility] | | | | | | [...] + | [facility] | [address] | [place] | [phone] | | [facility] | | [address] | | | - LABORATORY | | | | + + + + + | [facility] | [address] | [place], [place] | | | [facility] | | [address] | | | - LABORATORY [...] + | [facility] | [address] | [place] | [phone] | | [facility] | | [address] | | | - LABORATORY | | | | + + + + + | [facility] | [address] | [place], [place] | | | [facility] | | [address] [place] [address] | | | - LABORATORY | | [...]
--- OUTSIDE RECORDS SUMMARY | ~2020-06-15 | XMS | Encounter Summary ---
Demographics + + + | Address | [address] | | | [place] [address] | + + + | Home Phone [...] Providers + +------+ + | Care Product Controller Name | Role | Phone | [...] + + | 10/01/ | Office | [facility] | Mary Bradshaw | Injury of left foot, | | 2013 | Visit | CARE [address] | Guy Larkin MD | initial encounter | | | | [place] | [address] | (Primary Dx) | | | | [address] | [place] | | | | | [phone] | [address] | | | | | | | [...] daily documented in this encounter Progress Notes iKtty Montoya - 10/01/2014 6:57 PM PSTCalled patient [...] half hours. He states he needs to pickler helper hi s spouse. I provided patient with Dr. Bradley's card so he may contact us for results. Patient's best phone number: [phone] Renetta Lockwood RN Mary [place] [...] | | | | | | [place] [address] | | | | | | [phone] | | | | | | | [...] + | [facility] LAB | | | [phone] | + +---------+ + + | [facility] | | | [phone] | + +---------+ + + documented in this encounter Visit Diagnoses + + | Diagnosis | + + | Injury of left foot, initial encounter - Primary | + + documented in this encounter
--- OUTSIDE RECORDS SUMMARY | ~2020-06-15 | XMS | Encounter Summary ---
Demographics + + + | Address | [address] | | | [place] [address] | + + + | Home Phone [...] Providers + +------+ + | Care Certified Master Safe Technician Name | Role | Phone | [...] + + | 11/03/ | Refill | [facility] | Kirk French | Medication Refill | | 2019 | | [facility] | MD [address] | | | | | [facility] [facility] [address] | [address] | | | | | [address] | [place] [address] | | | | | [place], [place] | [phone] | | | | | [address] | | | | | | [phone] | | | +--------+--------+ + + + [...] Miscellaneous Notes Telephone Encounter - Geri Bear Mold Capper Helper - 11/03/2019 10:05 AM PSTRefill Shanell ctronically signed by Geri Bear Mold Capper Helper at 11/03/2019 10:05 AM PSTdocumented in this [...] | | | | | | [place] [address] | | | | | | [phone] | | | | | | | | +--------+ + + + + documented as of this encounter Visit Diagnoses Not on filedocumented in this encounter"
--- OUTSIDE RECORDS SUMMARY | ~2020-06-15 | XMS | Encounter Summary ---
Demographics + + + | Address | [address] | | | [place] [address] | + + + | Home Phone [...] Team Providers + +------+ + | Care Technician'S Helper Name | Role | Phone | [...] 2016 | | CARDIOLOGY [address] | SHEET MILL SUPERVISOR [address] | | | | | [place], | [place], [place] | | | | | [place] [address] | [address] | | | | | [phone] | | | +--------+--------+ + + + [...] | | | | | | [place] [address] | | | | | | [phone] | | | | | | | | +--------+ + + + + documented as of this encounter Visit Diagnoses Not on filedocumented in this encounter"
--- OUTSIDE RECORDS SUMMARY | ~2020-06-15 | XMS | Encounter Summary ---
Demographics + + + | Address | [address] | | | [place] [address] | + + + | Home Phone [...] Providers + +------+ + | Care Wool Fleece Grader Name | Role | Phone | + +------+ + PCP | Unavailable | + +------+ + Encounter Details +--------+ + + + + | Date | Type | Department | Care Team | Description | +--------+ + + + + | 01/15/ | [facility] | [facility] | Emmanuel Daniel MD | | | 1994 | Encounter | MED CTR GENERIC OP | [address] | | | | | CONV DEPT [address] | [address] | | | | | [place], | [address] | | | | | [place] [address] | | | | | | [phone] | | | +--------+ + + + [...] | | | | | | [place] [address] | | | | | | [phone] | | | | | | | | +--------+ + + + + documented as of this encounter Visit Diagnoses Not on filedocumented in this encounter"
--- OUTSIDE RECORDS SUMMARY | ~2020-06-15 | XMS | Encounter Summary ---
Demographics + + + | Address | [address] | | | [place] [address] | + + + | Home Phone [...] Providers + +------+ + | Care Digital Strategy Director Name | Role | Phone | [...] 2018 | | GASTROENTEROLOGY | [address], [place] | about prep for | | | | [address] [place] | [address] | procedure) | | | | [address] | [id number] | | | | | [address] | | | | | | [phone] | | | +--------+ + + + [...] encounter Miscellaneous Notes Telephone Encounter - Kaylynn Coepland RN - 12/24/2017 8:15 AM PSTLeMercari message return ing patient's call. P STTelephone Encounter - Nataly Pratt - 12/23/2017 4:01 PM PSTPatient called to speak [facility] clinical staff regarding prep for tomorrow's procedure. Please call patient back at home number [phone]. docum ented in this encounter Plan of [...] | | | | | | [place] [address] | | | | | | [phone] | | | | | | | | +--------+ + + + + documented as of this encounter Visit Diagnoses Not on filedocumented in this encounter"
--- OUTSIDE RECORDS SUMMARY | ~2020-06-15 | XMS | Encounter Summary ---
Demographics + + + | Address | [address] [place] [address] [address] | | | [place] [address] | + + + | Home Phone [...] [place] | | | | | [address] | | + + + + + Care Team Providers + +------+ + | Care Director Of Quantitative Research Name | Role | Phone | [...] | | | | l weight | [place], [place] | | | | | | loss | [address] | | | | | | Procedures | Phone: | | | | | | CONSULT TO | [phone] | | | | | | NON - [facility] | Fax: | | | | | | PROVIDER | [phone] | | | | | | CONSULT [...] | | 2019 | | Center at [facility] [address] | MD [address] | change location of | | | | [address] | [place], [place] | referral ) | | | | for Health and | [address] | | | | | [place] [address] | [phone] | | | | | [place], [place] | | | | | | [address] | | | | | | [phone] | | | +--------+ + + + [...]
--- OUTSIDE RECORDS SUMMARY | ~2020-06-15 | XMS | Encounter Summary ---
Demographics + + + | Address | [address] | | | [place] [address] | + + + | Home Phone [...] Providers + +------+ + | Care Paper Coating Supervisor Name | Role | Phone | [...] [address] | | | | | [address] | [place], [place] | | | | | [phone] | [address] | | | | | | [phone] | | | | | | | [...] | | | | | | [place] [address] | | | | | | [phone] | | | | | | | [...]
--- OUTSIDE RECORDS SUMMARY | ~2020-06-15 | XMS | Encounter Summary ---
Demographics + + + | Address | [address] | | | [place] [address] | + + + | Home Phone [...] Providers + +------+ + | Care Senior Business Development Analyst Name | Role | Phone [...] | 04/07/ | Office | [facility] | Matthew Uriarte | Left ureteral | | 2019 | Visit | [address] | MD Tawanna [address] | calculus (Primary | | | | [place], [place] | [place] | Dx); Kidney stones | | | | [address] | [address] | | | | | [phone] | | | +--------+---------+ + + + [...] April 13, 2019 at 7:45 AM at [facility]. Please report to the [facility] no later than 6:15 AM. REMEMBER: NOTHING TO EAT OR DRINK AFTER MIDNIGHT April 12, 2019. NO FISH OIL, ASPIRIN OR ASPIRIN PRODUCTS ONE WEEK PRIOR TO SURGERY. Tylenol and Advil are OK. You will need to get the following testing done prior to surgery: CBC, BMP YOU WILL NEED TO BRING A CHIMNEY CONSTRUCTION SUPERVISOR WITH YOU THE DAY OF SURGERY. Call us at [phone] with any questions. [] Pain management booklet [...] CV LHC; Surgeon: Daljit Singletary MD; Location: [facility] CV LAB CARDIAC CATHERIZATION N/A 01/25/2019 Procedure: CV Cor Angio; Surgeon: Daljit Singletary MD; Location: [facility] CV LAB COLONOSCOPY N/A 12/24/2017 Procedure: COLONOSCOPY; Surgeon: Emmanuel Daniel MD; Location: [facility] MEDICAL PROCEDURE UNIT COLONOSCOPY N/A 01/05/2019 Procedure: COLONOSCOPY; Surgeon: Emmanuel Daniel MD; Location: [facility] PROC[facility] EGD 12/24/2017 HARDWARE [...] Procedure: EGD; Surgeon: Emmanuel Daniel MD; Location: [facility] MED[facility] PROC[facility]URE [facility] UPPER GASTROINTESTINAL ENDOSCOPY N/A 01/05/2019 Procedure: EGD; Surgeon: Emmanuel Daniel MD; Location: [facility] PROC[facility] VASECTOMY Family History: [...] 911, Disp: 100 ta blet, Rfl: 3 Rangeley-3 Fatty Acids (SALMON OIL-1000 PO), CAPS, one [...] have not thoroughly proofread this note, and panel machine tender errors are very likely to occur. CC: [...] | | | | | | [place] [address] | | | | | | [phone] | | | | | | | [...]
--- OUTSIDE RECORDS SUMMARY | ~2020-06-15 | XMS | Encounter Summary ---
Demographics + + + | Address | [address] | | | [place] [address] | + + + | Home Phone [...] Providers + +------+ + | Care Senior Brand Manager Name | Role | Phone | [...] + | 09/27/ | Telephone | [facility] | Geri Angel, | Appointment | | 2012 | | CARDIOLOGY [address] | DATA ANALYTICS SPECIALIST [address] [place] | | | | | [place], | [address] [place] [facility], [place] | | | | | [place] [address] | [address] | | | | | [phone] | | | +--------+ + + + [...] | | | | | | [place] [address] | | | | | | [phone] | | | | | | | | +--------+ + + + + documented as of this encounter Visit Diagnoses Not on filedocumented in this encounter"
--- OUTSIDE RECORDS SUMMARY | ~2020-06-15 | XMS | Encounter Summary ---
Demographics + + + | Address | [address] | | | [place] [address] | + + + | Home Phone [...] Team Providers + +------+ + | Care Host Name | Role | Phone | [...] | | | | | | [address] [place], [place] | | | | | | [address] | | | | | | [phone] | | | +--------+ + + + [...] | | | | | | [place] [address] | | | | | | [phone] | | | | | | | | +--------+ + + + + documented as of this encounter Visit Diagnoses Not on filedocumented in this encounter"
--- OUTSIDE RECORDS SUMMARY | ~2020-06-15 | XMS | Encounter Summary ---
Demographics + + + | Address | [address] | | | [place] [address] | + + + | Home Phone [...] Team Providers + +------+ + | Care Alternative Education Teacher Name | Role | Phone [...] | Refill | [facility] [place] | Gemini Shaistakenneth, | Medication Refill | | 2019 | | CARDIOLOGY [address] | MD [address] [place] | | | | | [place], | [place], | | | | | [place] [address] | [place] [address] | | | | | [phone] | [phone] | | | | | | | [...] | | | | | | [place] [address] | | | | | | [phone] | | | | | | | | +--------+ + + + + documented as of this encounter Visit Diagnoses Not on filedocumented in this encounter"
--- OUTSIDE RECORDS SUMMARY | ~2020-06-15 | XMS | Encounter Summary ---
Demographics + + + | Address | [address] [place] [address] [address] | | | [place] [address] | + + + | Home Phone [...] [place] | | | | | [address] | | + + + + + Care Team Providers + +------+ + | Care Floor Layer Name | Role | Phone [...]
--- OUTSIDE RECORDS SUMMARY | ~2020-06-15 | XMS | Encounter Summary ---
Demographics + + + | Address | [address] | | | [place] [address] | + + + | Home Phone [...] Providers + +------+ + | Care Photographic Equipment Mechanic Name | Role | Phone [...] 101 | | | | | [address] [place], [place] | [place] [address] | | | | | [address] | [phone] | | | | | [phone] | | | +--------+--------+ + + + [...] PSTRefill Shanell ctronically signed by Geri Bear Inhalation Therapy Aides Teacher at 10/26/2019 1:47 PM PSTdocumented in this [...] | | | | | | [place] [address] | | | | | | [phone] | | | | | | | | +--------+ + + + + documented as of this encounter Visit Diagnoses Not on filedocumented in this encounter"
--- OUTSIDE RECORDS SUMMARY | ~2020-06-15 | XMS | Encounter Summary ---
Demographics + + + | Address | [address] | | | [place] [address] | + + + | Home Phone [...] Providers + +------+ + | Care Full Time Name | Role | Phone | [...] + + | 08/31/ | Refill | [facility] | Kirk French | Medication Refill | | 2019 | | [facility] | MD [address] | | | | | PRIMARY CARE [address] | [address] | | | | | [address] | [place] [address] | | | | | [place], [place] | [phone] | | | | | [address] | | | | | | [phone] | | | +--------+--------+ + + + [...] | | | | | | [place] [address] | | | | | | [phone] | | | | | | | | +--------+ + + + + documented as of this encounter Visit Diagnoses Not on filedocumented in this encounter"
--- OUTSIDE RECORDS SUMMARY | ~2020-06-15 | XMS | Encounter Summary ---
Demographics + + + | Address | [address] | | | [place] [address] | + + + | Home Phone [...] Providers + +------+ + | Care Cream Ripener Name | Role | Phone | + [...] visit | CARDIOLOGY [address] | [address] | reprogramming/check | | | | [place], | [place], | DO NOT DELETE | | | | [place] [address] | [place] [address] | (Primary Dx); | | | | [phone] | [phone] | Sinoatrial node | | | | [...] | | | | | | [place] [address] | | | | | | [phone] | | | | | | | [...]
--- OUTSIDE RECORDS SUMMARY | ~2020-06-15 | XMS | Encounter Summary ---
Demographics + + + | Address | [address] | | | [place] [address] | + + + | Home Phone [...] Providers + +------+ + | Care Superintendent Stevedoring Name | Role | Phone | + [...] + | 03/08/ | Telephone | [facility] | SunshinecherelleDaljit, | Other (Pacemaker | | 2013 | | CARDIOLOGY [address] | MD [address] [place] | card ) | | | | [place], | [place], | | | | | [place] [address] | [place] [address] | | | | | [phone] | [phone] | | | | | | | [...] [place] | | | | | | [place] [address] | | | | | | [phone] | | | | | | | | +--------+ + + + + documented as of this encounter Visit Diagnoses Not on filedocumented in this encounter"
--- OUTSIDE RECORDS SUMMARY | ~2020-06-15 | XMS | Encounter Summary ---
Demographics + + + | Address | [address] | | | [place] [address] | + + + | Home Phone [...] Providers + +------+ + | Care Residential Framing Carpenter Name | Role | Phone | [...] CTR CASE | RN | (referral from [facility]) | | | | MANAGEMENT [address] | | | | | | [place], | | | | | | [place] [address] | | | | | | [phone] | | | +--------+ + + + [...] PM PDTOutpatient Case Managem ent: Referral from [facility] This gentleman is scheduled for [...] we could suggest to an d from [place]. Can you look into this and suggest any transportation options? I was not able to talk to Amilcar. I talked to his support person Geraldine Espino (she will be with Amilcar for this procedure.. Two options: Free transportation service via [place]: [phone]. They have transportat ion times available that [...] | | | | | | [place] [address] | | | | | | [phone] | | | | | | | | +--------+ + + + + documented as of this encounter Visit Diagnoses Not on filedocumented in this encounter"
--- OUTSIDE RECORDS SUMMARY | ~2020-06-15 | XMS | Encounter Summary ---
Demographics + + + | Address | [address] | | | [place] [address] | + + + | Home Phone [...] CARDIOLOGY [address] | MD [address] [place] | | | | | [place], | [place], | | | | | [place] [address] | [place] [address] | | | | | [phone] | [phone] | | | | | | | [...] | | | | | | [place] [address] | | | | | | [phone] | | | | | | | | +--------+ + + + + documented as of this encounter Visit Diagnoses Not on filedocumented in this encounter"
--- OUTSIDE RECORDS SUMMARY | ~2020-06-15 | XMS | Encounter Summary ---
Demographics + + + | Address | [address] | | | [place] [address] | + + + | Home Phone [...] Providers + +------+ + | Care Ground Instructor Basic Name | Role | Phone | [...] | | | | [place] | [phone] | | | | | [address] | | | | | | [phone] | | | +--------+ + + + [...] + + + +---------+ + + | Saffell-3 Fatty | CAPS, one capsule by | [...] | | | | | | [place] [address] | | | | | | [phone] | | | | | | | [...]
--- OUTSIDE RECORDS SUMMARY | ~2020-06-15 | XMS | Encounter Summary ---
Demographics + + + | Address | [address] | | | [place] [address] | + + + | Home Phone [...] Providers + +------+ + | Care Paint Line Operator Name | Role | Phone | + +------+ + | Kirk French MD | PCP | | + +------+ + Encounter Details +--------+ + + + + | Date | Type | Department | Care Team | Description | +--------+ + + + + | 01/05/ | [facility] | [facility] | Emmanuel Daniel MD | Functional diarrhea | | 2019 | Encounter | MED CTR MP INTRA OP | [address], [place] | (Primary Dx); Weight | | | | [address] | [address] [place] | loss | | | | [place], [place] | [address] | | | | | [address] | | | | | | [phone] | | | +--------+ + + + [...] for a few hours. Date Last Reviewed: 09/22/201619990812-6138 [employer]. [address] [place] [address]. All righ ts reserved. This information is [...] vomiting, or vomiting blood Date Last Reviewed: 05/22/201619993409-[address] [employer] [place] [address], [place] [address]. All righ ts reserved. This information is [...] You can't be awakened Date Last Reviewed: 09/08/201619999193-2994 [employer]. [address] [place] [address]. All righ ts reserved. This information is [...] + + + +---------+ + + | Kossuth-3 Fatty | CAPS, one capsule by | [...] since serving in the in [facility]. His last episodes of diarrhea started [...] disease. CT scan done through [facility] November s howed mild diverticulosis without evidence [...] Endoscopy Patient: Moe Sanchez : 1960 Acct: [id number] Exam Date: December Doctor: Emmanuel Daniel MD [...] If unable to reach your physician, call [facility] Emergency Department at [address] Your [...] Exams Patient: Moe Sanchez : 1960 Acct: [id number] Exam Date: December Doctor: Emmanuel Daniel MD [...] If unable to reach your physician, call [facility] Emergency Department at [address] Your [...] [address] | | | | | | [address] [place], | | | | | | [place] [address] | | | | | | [phone] | | | | | | | [...] + + | Performed at: 01 - [facility] [address], | REFERENCE LAB | | [place], [place] [address] Wheel Fitter: Miguel Galarza MD, Phone: | [facility] | | [phone] | | + + + + + + + + | Performing | Address | City/State/Zipcode | Phone Number | | Organization | | | | + + + + + | [facility] | [address] | [place], [place] | [phone] | | [facility] | [place] | [address] | | + + + + + [...] | REFERENCE LAB | | [place] [phone] Wheel Fitter: Miguel Galarza MD, Phone: | [facility] | | [phone] | | + + + + + + + + | Performing | Address | City/State/Zipcode | Phone Number | | Organization | | | | + + + + + | REFERENCE LAB | [address] | [place], [place] | [phone] | | [facility] | [place] | [address] | | + + + + + [...] ST. | [address] | [place] | [phone] | | [facility] | | [address] | | | - LABORATORY | | [...] [address] | [place] | [phone] | | [facility] | | [address] | | | - LABORATORY | | [...] [address] | [place] | [phone] | | [facility] | | [address] | | | - LABORATORY | | [...] + | [facility] | [address] | [place] | [phone] | | [facility] | | [address] | | | - LABORATORY | | [...] + | [facility] | [address] | [place] | [phone] | | [facility] | | [address] | | | - LABORATORY | | [...] [address] | [place] | [phone] | | [facility] | | [address] | | | - LABORATORY | | | | + + + + + EGD (01/05/2019 8:36 AM PST) + + | Specimen | + + | | + + + + -+ | Narrative | Performed At | + + -+ | | [facility] | | GastroenterologyPatient Name: Moe Venegas Date: | PROVATION | | 01/05/2019 8:36 AMMRN: [id number] #: [id number] of : | | | 9Admit Type: AmbulatoryAge: 58Room: [facility] 01Gender: MaleNote | | | Status: FinalizedAttending MD: Emmanuel Daniel , MDProcedure: | | | Upper GI endoscopyIndications: Diarrhea, Weight | | | lossProviders: Emmanuel Daniel MD, Heidi Mixon [place], | | | RN, Kim Hicks, Grocery Specialist, | | | Jarett Barakat MD [...] physician, the nurse, the anesthesiologist and the architectural technician | | | in the endoscopy [...] | | Imaging was performed using the Scrip-t Intelligent Chromo | | | Endoscopy (FICE) [...] Scope In: 8:43:57 AMScope Out: 8:49:50 AM [facility]. | | | [facility], [address] [place] [address] | | | [phone] | | |Recommendation: | | | - [...] |Scope Out: 8:49:50 AM | | | [facility]. [facility], [address] [place] [address] | | | [address] | | + + -+ + +---------+ [...] | PROVATION | | 01/05/2019 8:36 AMMRN: [id number] #: [id number] of : | | | 9Admit Type: AmbulatoryAge: 58Room: [facility] 01Gender: MaleNote | | | Status: FinalizedAttending MD: Emmanuel Daniel , [facility]cedure: | | | ColonoscopyIndications: Clinically significant diarrhea of | | | unexplained origin, Weight lossProviders: | | | Emmanuel Daniel MD, Heidi An RN, Kim | | | Fiorella Hicks, Grocery Specialist, Jarett Alejo | | | MD [...] | | | the anesthesiologist and the architectural technician in the endoscopy suite. | | [...] AMScope Out: | | | 9:06:28 AM [facility], [address] [facility], | | | [place] [address] | | | - Discharge patient to [...] |Scope Out: 9:06:28 AM | | | [facility], [address] [facility], [place] | | | [address] | | + + -+ + +---------+ [...] | | | (atherosclerotic heart disease of [place] coronary artery without | | | angina [...] chronic or | | | microscopic colitis. [facility]:C3NR GROSS DESCRIPTION: A. The | | | specimen, labeled "Ector, duodenal biopsy" is received in formalin | | | and consists of seven 0.1-0.5 cm lin fragments. Entirely submitted in | | | (A1). B. The specimen, labeled "Ector, right colon" is received | | | in formalin and consists of six 0.2-0.3 cm lin fragments. Entirely | | | submitted in (B1). C. The specimen, labeled "Ector, left colon" | | | is received in formalin and consists of six 0.2-0.3 cm lin-pink | | | fragments. Entirely submitted in (C1). am:AMB:rds PERFORMING | | | LABORATORY: The technical component was performed by [facility] | | | [place] [address] (Bookkeeping Teacher: | | | Kailey Stafford MD; CLIA# [id number]). Professional interpretation was | | | performed by [employer], [facility], [facility] | | | [place] [address] (Bookkeeping Teacher: [place] | Shanique Dao M.D.; CLIA#: [id number]). Diagnostician: Ishaan Fitzpatrick | | Shanique Dao [...] PRN, Wheezing, | | | Starting [facility] 01/05/19 at 0924, | | | For [...]
--- OUTSIDE RECORDS SUMMARY | ~2020-06-15 | XMS | Encounter Summary ---
Demographics + + + | Address | [address] | | | [place] [address] | + + + | Home Phone [...] Providers + +------+ + | Care Commercial Construction Superintendent Name | Role | Phone | + +------+ + | Kirk French MD | PCP | | + +------+ + Encounter Details +--------+ + + + + | Date | Type | Department | Care Team | Description | +--------+ + + + + | 12/24/ | Orders Only | [facility] | Conversion | | | 2018 | | [facility] | Transaction, | | | | | PRIMARY CARE [address] | Provider Unknown | | | | | [address] | [phone] | | | | | [place] | | | | | | [address] | | | | | | [phone] | | | +--------+ + + + [...] | | | | | | [place] [address] | | | | | | [phone] | | | | | | | [...] LAB | | [facility] | | + + + [...]
--- OUTSIDE RECORDS SUMMARY | ~2020-06-15 | XMS | Encounter Summary ---
Demographics + + + | Address | [address] | | | [place] [address] | + + + | Home Phone [...] Team Providers + +------+ + | Care Jig Boring Machine Set Up Operator Name | Role | Phone | + +------+ + PCP | Unavailable | + +------+ + Encounter Details +--------+ + + + + | Date | Type | Department | Care Team | Description | +--------+ + + + + | 02/28/ | [facility] | [facility] | Geri Angel, | | | 2011 | Encounter | MED CTR XRAY [address] | VOLTAGE TESTER [address] | | | | | [address] [place] | [place] | | | | | [place] [address] | [id number] | | | | | [phone] | | | +--------+ + + + [...] | | | | | | [place] [address] | | | | | | [phone] | | | | | | | [...] + + + | [facility] Diagnostic Imaging Department | [place] | | [address] [place] | [place] [employer] | | LEFT HEART CATHETERIZATION | [facility] | | REPORT 02/29/2012 HEMODYNAMICS: Aortic [...] was taken to | | | Cardiac Electric Switch Repairer. He was prepared and draped in the usual fashion | | | under a sterile technique and local anesthesia, percutaneous access | | | was obtained using #6- Cymro sheath in the right femoral artery. | | | Right heart cath was not performed in this patient. Left | | | ventriculography was performed using #6-Cymro pigtail catheter. | | | The selective coronary angiography were then performed in several | | | sagittal and oblique projection using the 6-Cymro JL 4 and #6 Cymro | | | 3DRC diagnostic catheters. The [...] Transcribed | | | Date/Time: 02/29/2012 09:09 Court Clerk: | | | <Electronically Signed by Daljit Singletary MD [facility] FASE> 02/29/12 | | | 1002 | | + + + + + | Procedure Note | + + | Kalpesh Brown Conversion - 12/29/2013 5:[address] [facility] | | Diagnostic Imaging Department | | [address], [place] | | | [...] patient was taken to Cardiac | | Electric Switch Repairer. He was prepared and draped in the usual fashion under a sterile | | technique and local anesthesia, percutaneous access was obtained using #6- | | Cymro sheath in the right femoral artery. Right heart cath was not performed | | in this patient. Left ventriculography was performed using #6-Cymro pigtail | | catheter. The selective coronary angiography were then performed in several | | sagittal and oblique projection using the 6-Cymro JL 4 and #6 Cymro 3DRC | | diagnostic catheters. The patient [...] | Transcribed Date/Time: 02/29/2012 09:09 | | Court Clerk: | | <Electronically Signed by Daljit Singletary MD [facility] ADELINE> 02/29/12 1002 | + + + [...]
--- OUTSIDE RECORDS SUMMARY | ~2020-06-15 | XMS | Encounter Summary ---
Demographics + + + | Address | [address] | | | [place] [address] | + + + | Home Phone [...] Providers + +------+ + | Care Aircraft Loadmaster Superintendent Name | Role | Phone | [...] CARDIOLOGY [address] | MD [address] [place] | Interrogation | | | | [place], | [place], | (Primary Dx); | | | | [place] [address] | [place] [address] | Pacemaker; | | | | [phone] | [phone] | Sinoatrial node | | | | [...] (HCC)Date of Remote Interrogation: 2019 Refer to PaceC[employer] documentation and remote PDF scanned into Bioenvision for remote interrogation re sults. Data collected [...] | | | | | | [place] [address] | | | | | | [phone] | | | | | | | [...]
--- OUTSIDE RECORDS SUMMARY | ~2020-06-15 | XMS | Encounter Summary ---
Demographics + + + | Address | [address] | | | [place] [address] | + + + | Home Phone [...] Team Providers + +------+ + | Care Blueprinter Name | Role | Phone | + [...] | type | [address] | [address] | | | | | Procedures | ST [place] | [place], | | | | | FUP | [place], [place] | [place] [address] | | | | | | [address] | Phone: | | | | | | Phone: | [phone] | | | | | | [phone] | Fax: | | | | | | Fax: | [phone] | | | | | | [phone] | | +--------+ + + + + + Reason for Visit + + + | Reason | Comments | + + + | Chest Pain | | + + + Encounter Details +--------+ + + + + | Date | Type | Department | Care Team | Description | +--------+ + + + + | 06/20/ | Emergency | [facility] | Franki Pham | Chest pain, | | 2018 | | MED CTR EMERGENCY | MD Martell [address] | unspecified type | | | | CENTER [address] | [address] [place] | (Primary Dx) | | | | [place], [place] | [place] [address] | | | | | [address] | [phone] | | | | | [phone] | | | +--------+ + + + [...] + + + +---------+ + + | [place]-3 Fatty | CAPS, one capsule by | [...] than PVC'S. 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 ranki Pham MD - 06/20/2018 6 :54 PM PDT [facility] Moe Sanchez Emergency Department Encounter Note [address] [place] [address] PCP:Kirk French MD [phone] CHIEF COMPLAINT: Chief [...] PVC'S. 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 He reports that earlier today while doing [...] coronary artery disease denies ever having an CO or being stented. His symptoms lasted for approximately 30 minutes. Were sudden in onset with resolution over this time course. No as sociated trauma or other associated symptoms. Language line motor vehicle parts interpreter made available and used to collect [...] to go back in 3 days to [place] for an attempt of ablation under general [...] Left Heart Cath, 02/29/2012, LVEF is 65%, [facility] Myocardial Gated Stress Test, 05/25/2009, EF 53 % during rest and 52% during stress. [place], [place]. Persantine Sestamibi Stress Test, 06/14/2008, LVEF is 60%, [facility] 12/25/13, shows noncritical coronary artery disease, [...] SERIAL# DATE IMPLANTED GENERATOR Medtronic DDD ADDR01 [id number] 06/14/09 RV LEAD Medtronic Active Bipolar CapSureFix 4076 [id number] 06/14/09 A LEAD Medtronic Active Bipolar CapSurFix 4076 [id number] 06/14/09 Depression with anxiety 12/24/2017 Priority: Medium Coronary artery disease involving [place] coronary artery of [place] heart without angina pectoris 12/21/2013 Priority: [...] tissue attenuation cannot completely be ruled out. [facility] 12/25/13, shows non critical coronary artery [...] 12/24/2017 Lower back injury (From [facility]) 1981 1985 Hyperlipidemia, mixed Priority: [...] 07/26/[address] Angiogram chest w/constrast 05/26/14 [facility] Hypoglycemia 09/20/2012 Bipolar disorder (HCC) [...] [facility] MEDICAL PROCEDURE UNIT HARDWARE REMOVAL KNEE SURGERY 2003 meniscus-right LAMINECTOMY 1991 L3-4 LUMBAR DISCECTOMY 1991 L3-4 LUMBAR FUSION 01/2011 6 spine fusions neck fusion 08/10/2012 [place] NECK SURGERY PACEMAKER PLACEMENT 06/14/09 SHOULDER SURGERY 03/22/13 SINUS SURGERY 1997 SPINAL FUSION STOMACH SURGERY UPPER GASTROINTESTINAL ENDOSCOPY N/A 12/24/2017 Procedure: EGD; Surgeon: Emmanuel Daniel MD; Location: [facility] MEDICAL PROCEDURE UNIT VASECTOMY CURRENT MEDICATIONS Discharge [...] patient that appointment is due [place] [facility] [...] DOSE, CALL 911Disp-100 tablet, R-3 , Normal [place]-3 Fatty Acids (SALMON OIL-1000 PO) CAPS, one [...] or Severe Contraindications. Consult references such as Cobra Stylet for further information. rOPINIrole (REQUIP) 1 mg tablet Take 1 tablet by mouth nightly.R-0, Historical Med UNABLE TO FIND Take 1 tablet by mouth Daily. MARINE-Z5Uajvaafvlf Med UNCODED MEDICATION Diagnosis: Obstructive Sleep Apnea ICD-9: 327.23 Length of Need: 99 MonthsDisp-1 Device, R-0, OvkytD9202 -Nasal Pillows, N8570-Cjhdm Mask, A 7030- Full Face Mask, W2916-Xubvby Humidifier, M3353-Cvarfe Tubing, W1150-Cpppxjii, S8114-Dx instrap A7039/A703 8-Filters valACYclovir (VALTREX) 1 g [...] were reviewed along with EMS notes and retirement record s if applicable. (See chart for [...] hospital for cardiac workup in this setting, [facility] The patient is AAOx4, clinically [...] Internal Medicine Contact information: [address] [address] Daljit Singletary MD. Call today. Specialty: Cardiology Contact information: [address] [facility] [address] Discharge Medication List as of 06/20/2018 21:55 Portions of this chart were created with [email or web address] voice recognition software. Inadvertent so und alike [...] | | | | | | [place], | | | | | | [place] [address] | | | | | | [phone] | | | | | | | [...] W?MRN: | | | | | | [id number] | | | [id number] | | | his | | | [...] | | | ent/60 | | | [id number] | | | -[phone]- | | | [...] | | | St. | | | [place] | | | y | | | [...] | | | ext. | | | [address] | | | or go | | [...] | | | M.D. | | | Marketing Professor | | | al | | | [...] | | | | ANGELA MARADIAGA MD ([id number]) | | | | | | on [...] | | | | | | [employer] | | | | | [...] [address] | [place] | [phone] | | [facility] | | [address] | | | - LABORATORY | | [...] [address] | [place] | [phone] | | [facility] | | [address] | | | - LABORATORY | | [...] | | | | | | [employer] | | | | | [...] [address] | [place] | [phone] | | [facility] | | [address] | | | - LABORATORY | | [...] mL/min/1.73m2 | [facility] | | | BHUTANESE | RATE,ESTIMATED | | MEDICAL | | | | mL/min/1.55q1Ptuf than | | CENTER - | | [...] [address] | [place] | [phone] | | [facility] | | [address] | | | - LABORATORY | | [...] + | [address] | [address] | [place] | [phone] | | [facility] | | [address] | | | - LABORATORY | | [...] | | | | ANGELA MARADIAGA MD ([id number]) | | | | | | on [...]
--- OUTSIDE RECORDS SUMMARY | ~2020-06-15 | XMS | Encounter Summary ---
Demographics + + + | Address | [address] | | | [place] [address] | + + + | Home Phone [...] Providers + +------+ + | Care Automated Teller Manager Name | Role | Phone | + +------+ + | Kirk French MD | PCP | | + +------+ + Encounter Details +--------+ + + + + | Date | Type | Department | Care Team | Description | +--------+ + + + + | 12/23/ | Emergency | [facility] | Cristal Alexander, | Chronic neck pain; | | 2014 | | MEDICAL CENTER | DO [address] | Headache(784.0) | | | | EMERGENCY CENTER | [place] [address] | | | | | [address] | [phone] | | | | | [place], [place] | | | | | | [address] | | | | | | [phone] | | | +--------+ + + + [...] + + + +---------+ + + | [place]-3 Fatty | CAPS, one capsule by | [...] | | | | | | | #[id number], exp 07/2016 | | | | | [...] Notes by Cristal Alexander DO at 12/23/14 5325 Author: Cristal Alexander DO Service: Emergency Department Author Type: Physician Filed: 12/27/14 1135 Date of Service: 12/23/141727 Status: Signed Bowling Teacher: Cristal Alexander DO (Physician) Procedures Additional Documentation Procedures [facility] Department of Emergency Medicine HPI History of [...] patient has had neuroimaging in the past. [facility] is doing pain management. Past Medical [...] Follow up With Details Comments Contact Info [facility] this week [address] [facility] [address] [facility] [address] Kirk French MD Discharge Medications: Discharge Medication List as of 12/23/2014 7:31 PM START taking these medications Details methocarbamol (ROBAXIN) 750 MG tablet Take 2 tablets by mouth every 6 (six) hours as needed (pain)., Starting 12/23/2014, Until 01/02/15, Print Cristal Alexander DO 12/27/14 2557 onversion Transacti on, Provider Unknown - 12/23/2014 5:22 PM PSTFormatting of this note might be different fro m the original. ED Notes by Bandar Stephenson RN at 12/23/141721 Author: Bandar Stephenson RN Service: (none) Author Type: Registered Nurse Filed: 12/23/141724 Date of Service: 12/23/141721 Status: Signed Bowling Teacher: Bandar Stephenson RN (Registered Nurse) Pt states [...] | | | | | | [place] [address] | | | | | | [phone] | | | | | | | [...] 07/07/2019 5:05 AM PDT PINA Hermosillo VICTOR [id number] years MaleCT | | CERVICAL SPINE WO [...]
--- OUTSIDE RECORDS SUMMARY | ~2020-06-15 | XMS | Encounter Summary ---
Demographics + + + | Address | [address] | | | [place] [address] | + + + | Home Phone [...] Team Providers + +------+ + | Care Roving Can Tender Name | Role | Phone | [...] + + | 01/28/ | Refill | [facility] | Kirk French | Medication Refill | | 2019 | | [facility] | MD Bre[address] | | | | | [facility] [address] | [address] | | | | | [address] | [place] [address] | | | | | [place], [place] | [phone] | | | | | [address] | | | | | | [phone] | | | +--------+--------+ + + + [...] | | | | | | [place] [address] | | | | | | [phone] | | | | | | | | +--------+ + + + + documented as of this encounter Visit Diagnoses Not on filedocumented in this encounter"
--- OUTSIDE RECORDS SUMMARY | ~2020-06-15 | XMS | Encounter Summary ---
Demographics + + + | Address | [address] | | | [place] [address] | + + + | Home Phone [...] Providers + +------+ + | Care Machine Tool Operator Name | Role | Phone | [...] type ER | [address] | [address] | | | | | [place] | [place] | [place], | | | | | Procedures | [place], [place] | [place] [address] | | | | | [place] - [place] & | [address] | Phone: | | | | | EVM PT, LAST | Phone: | [phone] | | | | | SEEN | [phone] | Fax: | | | | | 08-24-18 | Fax: | [phone] | | | | | | [phone] | | +--------+ + + + + [...] | | | | CENTER [address] | [address] [place] | (Primary Dx) | | | | [place], [place] | [place] [address] | | | | | [address] | [phone] | | | | | [phone] | | | +--------+ + + + [...] through Care Everywhere.Chest Pain, Unc ertain Cause (Upper Sor[place])documented in this encounter Medications [...] as of this encounter ED Notes Franki hPam MD - 01/03/2019 12:38 AM PSTFormatting of this note might be diff erent from the original. [facility] Moe Sanchez Emergency Department Encounter Note [address] [place] [address] PCP:Kirk French MD x2500 CHIEF COMPLAINT: Chief Complaint Patient presents with Chest Pain ED Room: ED06 [facility] Moe Sanchez is a 58 y.o. [...] include none. 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 The patient has had risk stratification recently. The patient denies stimulant drug use ever, IVDU ever, use, family history of [place] at an age younger than 55. The patient denies history of blood cl ots, coagulation disorder, leg pain/swelling, recent surgery immobilization, cancer, estroge n use, Shortness of breath, cough, or hemoptysis. Language line court interpreter made available and used to collect [...] arrhythmia performed by Dr. Gambino at [facility] on 01/30/2013. Patient had spontaneous [...] to go back in 3 days to [place] for an attempt of ablation under general [...] SERIAL# DATE IMPLANTED GENERATOR Medtronic DDD ADDR01 [id number] 06/14/09 RV LEAD Medtronic Active Bipolar CapSureFix 4076 [id number] 06/14/09 A LEAD Medtronic Active Bipolar CapSurFix 4076 [id number] 06/14/09 Depression with anxiety 12/24/2017 Priority: Medium Coronary artery disease involving [place] coronary artery of [place] heart without angina pectoris 12/21/2013 Priority: Medium [...] tissue attenuation cannot completely be ruled out. [facility] 12/25/13, shows non [...] 12/24/2017 Lower back injury (From [facility]) 1981 1985 Hyperlipidemia, mixed Priority: [...] 07/26/[address] Angiogram chest w/constrast 05/26/14 [facility] Hypoglycemia 09/20/2012 Bipolar disorder (HCC) Mixed [...] Procedure: COLONOSCOPY; Surgeon: Emmanuel Daniel MD; Location: [facility] MEDICAL PROCEDURE UNIT EGD 12/24/2017 [...] Procedure: EGD; Surgeon: Emmanuel Daniel MD; Location: [facility] MEDICAL PROCEDURE UNIT VASECTOMY CURRENT [...] by mouth Daily.Disp-90 tabl et, R-1, Normal [facility] Natural Products (OSTEO BI-FLEX/5-LOXIN ADVANCED [...] DOSE, CALL 911Disp-100 tablet, R-3 , Normal [place]-3 Fatty Acids (SALMON OIL-1000 PO) CAPS, one capsule by mouth daily twice daily ondansetron (ZOFRAN ODT) 4 mg disintegrating tablet Take 4 mg by mouth every 6 hours as nee ded.Historical Med [facility] [...] FIND Take 1 tablet by mouth Daily. MARINE-O3Pblzocjwpo Med UNCODED MEDICATION Diagnosis: Obstructive Sleep Apnea ICD-9: 327.23 Length of Need: 99 MonthsDisp-1 Device, R-0, FakdhC2999 -Nasal Pillows, Q7726-Rwbwk Mask, A 7030- Full Face Mask, G6103-Spcdek Humidifier, I8396-Teatev Tubing, I7459-Olmtazgk, M7819-Yv instrap A7039/A703 8-Filters valACYclovir (VALTREX) 1 g [...] pH, Urine 5.0 5.0 - 8.0 Specific [place] 1.011 1.001 - 1.030 Protein, Urine Negative [...] were reviewed along with EMS notes and care home record s if applicable. (See chart for [...] Internal Medicine Contact information: [address] [address] Daljit Singletary MD. Call today. Specialty: Cardiology Contact information: [address] [facility] [address] Discharge Medication List as of 01/02/2019 [...] Portions of this chart were created with [employer] voice recognition software. Inadvertent so und alike [...] W | | | | | | [place], | | | | | | [place] [address] | | | | | | [phone] | | | | | | | [...] W?MRN: | | | | | | [id number] | | | [id number] | | | riteri | | | [...] | | | M.D. | | | Home Health [facility] | | | al | | | [...] | | | ent/60 | | | [id number] | | | -[phone]- | | | [...] | | | | ANGELA MARADIAGA MD ([id number]) | | | | | | on [...] | | | | | | [employer] | | | | | [...] [address] | [place] | [phone] | | [facility] | | [address] | | | - LABORATORY | | [...] + | [facility] | [address] | [place] | [phone] | | [facility] | | [address] | | | - LABORATORY | | [...] - 1.030 | [facility] | | | [place], | | | [facility] [place] | | [...] ST. | [address] | [place], [place] | [phone] | | [facility] | | [address] | | | - LABORATORY | | [...] [address] | [place] | [phone] | | [facility] | | [address] | | | - LABORATORY | | [...] [address] | [place] | [phone] | | [facility] | | [address] | | | - LABORATORY | | [...] | | | | | | [employer] | | | | | [...] + | [facility] | [address] | [place] | [phone] | | [facility] | | [address] | | | - LABORATORY | | [...] | mL/min/1.73m2 | [place] | | | [place] | RATE,ESTIMATED | | MEDICAL | | | | mL/min/1.57d1Fpfa than | | CENTER - | | [...] [address] | [place] | [phone] | | [facility] | | [address] | | | - LABORATORY | | [...] | [address] | [place] | [phone] | | [facility] | | [address] | | | - LABORATORY | | [...] | | | | ANGELA MARADIAGA MD ([id number]) | | | | | | on [...]
--- OUTSIDE RECORDS SUMMARY | ~2020-06-15 | XMS | Encounter Summary ---
Demographics + + + | Address | [address] | | | [place] [address] | + + + | Home Phone [...] Providers + +------+ + | Care Bridge Teacher Name | Role | Phone | + +------+ + | Michael Amanda DO | PCP | | + +------+ + Encounter Details +--------+ + + + + | Date | Type | Department | Care Team | Description | +--------+ + + + + | 12/25/ | Hospital | [facility] | Daljit Singletary, | | | 2013 | Encounter | MED CTR XRAY [address] | [address] | | | | | [place] | [place], | | | | | [place] [address] | [place] [address] | | | | | [phone] | [phone] | | | | | | | [...] + + + +---------+ + + | [place]-3 Fatty | CAPS, one capsule by | [...] W | | | | | | [place], | | | | | | [place] [address] | | | | | | [phone] | | | | | | | [...] Performed At | + + + | [facility] Diagnostic Imaging | [place] | | Department [address] [place] [address] | [facility] | | [ rep ct street1+[address]] [ rep ct [facility] | | st zip] Signed | - IMAGING | | | | | Patient Name: MOE GAY | | | Physician: MIGUELINA : 1960 Age: 53 Sex: M Unit | | | #: [id number] Exam Date: 12/25/13 Location: | | | [facility] SDS-D Report #: [id number] Page: | | | %(RAD)RES..mtdd.print.filter("pg") of %(RAD) | | | RES..mtdd.print.filter("tpg") | | | | | | Accession Number: [id number] | | | LEFT HEART CATHETERIZATION, 12/25/2013 [...] the patient was taken to the cardiac seed laboratory technician. She | | | was prepared and draped in the usual fashion. Under sterile | | | technique and local anesthesia, percutaneous access was obtained | | | using #5 Greenlandic sheath in the right radial artery. Right heart cath | | | was not performed on this patient. Left ventriculography was | | | performed using #5 multipurpose diagnostic catheter. The selective | | | coronary angiography was then performed in several sagittal and | | | oblique projections using #5 multipurpose and #5 Greenlandic JL 3.5 | | | diagnostic catheters. [...] Transcribed | | | Date/Time: 12/25/2013 11:52 Chili Powder Mixer: | | | <<Signature on File>> | | | Suwong | | | MD Gemini [facility] FAS12/25/13 1343 <Electronically signed by | | | Daljit Singletary MD, [facility], [facility], [facility], [facility]> Rashadong | | | MD Gemini [facility] FASE 12/25/13 1035 Chili Powder Mixer: Webkaryx | | | Ntflshyqubuzz30/03/14 1152 | | + + + + + + + + | Performing | Address | City/State/Zipcode | Phone Number | | Organization | | | | + + + + + | [facility] | [address] | [place] | [phone] | | [facility] | | [address] | | | - IMAGING | | | | + + + + + documented in this encounter Visit Diagnoses Not on filedocumented in this encounter
--- OUTSIDE RECORDS SUMMARY | ~2020-06-15 | XMS | Encounter Summary ---
Demographics + + + | Address | [address] | | | [place] [address] | + + + | Home Phone [...] Team Providers + +------+ + | Care Educator Senior Clinical Name | Role | Phone | + +------+ + PCP | Unavailable | + +------+ + Encounter Details +--------+ + + + + | Date | Type | Department | Care Team | Description | +--------+ + + + + | 02/01/ | [facility] | [facility] | Evan Gandara MD | | | 2008 - | Encounter | MED CTR MED ONC | [address] [facility] | | | | | [address] [place] | [place] | | | 02/06/ | | [place] [address] | [address] | | | 2008 | | [phone] | | | +--------+ + + + [...] | | | | | | [place] [address] | | | | | | [phone] | | | | | | | | +--------+ + + + + documented as of this encounter Visit Diagnoses Not on filedocumented in this encounter"
--- OUTSIDE RECORDS SUMMARY | ~2020-06-15 | XMS | Encounter Summary ---
Demographics + + + | Address | [address] | | | [place] [address] | + + + | Home Phone [...] Providers + +------+ + | Care Training Development Manager Name | Role | Phone [...] [address] | | | | | [place], | [place], | | | | | [place] [address] | [place] [address] | | | | | [phone] | [phone] | | | | | | | [...] | | | | | | [place] [address] | | | | | | [phone] | | | | | | | [...] Resulting Agency Comment | + + | [facility] | + + + +---------+ + [...] + | [facility] | [address] | [place] | [phone] | | [facility] | | [id number] | | | - LABORATORY | [...]
--- OUTSIDE RECORDS SUMMARY | ~2020-06-15 | XMS | Encounter Summary ---
Demographics + + + | Address | [address] | | | [place] [address] | + + + | Home Phone [...] Team Providers + +------+ + | Care Dev Manager Name | Role | Phone | [...] | 01/30/ | Telephone | [facility] [place] | Emmanuel Daniel MD | Referral | | 2019 | | GASTROENTEROLOGY | [address], [place] | | | | | [address] [place] | [address] [place], [place] | | | | | [address] [place], [place] | [address] | | | | | [address] | | | | | | [phone] | | | +--------+ + + + [...] Brea Daniel declines to refer patient to [facility], the referral will have to come his [...] for a referral to be sent to [facility]. When he saw Dr. Haleigh johnson he had mentioned getting another opinion from him. He tried getting a referral sent fro m his PCP but he says [facility] will not accept it, that they denied it. He says the referral has to come from Dr. Daniel. He gave me all the information. ATT: [facility] Their phone number is [phone] Thank you Electronically signed by Monica Kenny [...] | | | | | | [place] [address] | | | | | | [phone] | | | | | | | | +--------+ + + + + documented as of this encounter Visit Diagnoses Not on filedocumented in this encounter"
--- OUTSIDE RECORDS SUMMARY | ~2020-06-15 | XMS | Encounter Summary ---
Demographics + + + | Address | [address] [place] [address] [address] | | | [place] [address] | + + + | Home Phone [...] + | Rachel Valencia | ECON | [place] | | | | | [address] | | + + + + + Care Team Providers + +------+ + | Care Replanting Machine Operator Name | Role | Phone [...]
--- OUTSIDE RECORDS SUMMARY | ~2020-06-15 | XMS | Encounter Summary ---
Demographics + + + | Address | [address] | | | [place] [address] | + + + | Home Phone [...] Providers + +------+ + | Care Radio Adjuster Name | Role | Phone | + +------+ + PCP | Unavailable | + +------+ + Encounter Details +--------+ + + + + | Date | Type | Department | Care Team | Description | +--------+ + + + + | 01/31/ | Hospital | [facility] | | | | 2008 | Encounter | MED CTR EMERGENCY | | | | | | [address] | | | | | | [place] | | | | | | [address] | | | | | | [phone] | | | +--------+ + + + [...] | | | | | | [place] [address] | | | | | | [phone] | | | | | | | | +--------+ + + + + documented as of this encounter Visit Diagnoses Not on filedocumented in this encounter"
--- OUTSIDE RECORDS SUMMARY | ~2020-06-15 | XMS | Encounter Summary ---
Demographics + + + | Address | [address] | | | [place] [address] | + + + | Home Phone [...] Providers + +------+ + | Care Computer Education Professor Name | Role | Phone [...] [facility] [place] | Daljit Singletary, | Other | | 2018 | | CARDIOLOGY [address] | [address] [place] | | | | | [place], | [place], | | | | | [place] [address] | [place] [address] | | | | | [phone] | [phone] | | | | | | | [...] | | | | | | [place] [address] | | | | | | [phone] | | | | | | | [...] 05/02/2019, Expires: | | | | | venetie ira coronary | 01/30/2020 | | | | | artery of venetie ira | | | | | | [...] 05/02/2019, Expires: | | | | | venetie ira coronary | 01/31/2020 | | | | | artery of venetie ira | | | | | | [...]
--- OUTSIDE RECORDS SUMMARY | ~2020-06-15 | XMS | Encounter Summary ---
Demographics + + + | Address | [address] | | | [place] [address] | + + + | Home Phone [...] Providers + +------+ + | Care Extract Puller Name | Role | Phone | [...] | | | 2013 | | MEDIC[facility] [place] | DO [address] | | | | | [address] | [place] | | | | | [place] | [address] | | | | | [address] | | | | | | [phone] | | | +--------+ + + + [...] | | | | | | [place] [address] | | | | | | [phone] | | | | | | | | +--------+ + + + + documented as of this encounter Visit Diagnoses Not on filedocumented in this encounter"
--- OUTSIDE RECORDS SUMMARY | ~2020-06-15 | XMS | Encounter Summary ---
Demographics + + + | Address | [address] | | | [place] [address] | + + + | Home Phone [...] Providers + +------+ + | Care Wire Brush Maker Name | Role | Phone | [...] 2019 | | GASTROENTEROLOGY | MD [address] | | | | | [address] | Jay Crane. [place] | | | | | [address] [place] | [place] [address] | | | | | [address] | | | | | | [phone] | | | +--------+ + + + [...] | | | | | | [place] [address] | | | | | | [phone] | | | | | | | [...] | | | | | Emmanuel Daniel [facility] | | | | + + [...]
--- OUTSIDE RECORDS SUMMARY | ~2020-06-15 | XMS | Encounter Summary ---
Demographics + + + | Address | [address] | | | [place] [address] | + + + | Home Phone [...] + +------+ + | Care Manager Marketing Name | Role | Phone [...] | Implant | [facility] [place] | AnsuhjohnsoncherelleRashadotto, | Remote Device | | 2019 | Monitor | CARDIOLOGY [address] | [address] | Interrogation | | | | [place], | [place], | (Primary Dx); | | | | [place] [address] | [place] [address] | Pacemaker; | | | | [phone] | [phone] | Sinoatrial node | | | | [...] Paceart documentation and remote PDF scanned into MyLuvs for remote interrogation re sults. Data collected [...] | | | | | | [place] [address] | | | | | | [phone] | | | | | | | [...]
--- OUTSIDE RECORDS SUMMARY | ~2020-06-15 | XMS | Encounter Summary ---
Demographics + + + | Address | [address] | | | [place] [address] | + + + | Home Phone [...] Providers + +------+ + | Care Livestock Handler Name | Role | Phone | [...] [address] | | | | | | [place], [place] | (Fax) | | | | | [address] | | | | | | [phone] | | | +--------+ + + + [...] | | | | | | [place] [address] | | | | | | [phone] | | | | | | | | +--------+ + + + + documented as of this encounter Visit Diagnoses Not on filedocumented in this encounter"
--- OUTSIDE RECORDS SUMMARY | ~2020-06-15 | XMS | Encounter Summary ---
Demographics + + + | Address | [address] | | | [place] [address] | + + + | Home Phone [...] Providers + +------+ + | Care Tire Duster Name | Role | Phone | + [...] unspecified | [address] | | | | | type | [address] | [place], | | | | | Procedures | [place], | [place] | | | | | [place] | [place] [address] | [address] | | | | | Stress Test | Phone: | Phone: | | | | | (Vasodilator | [phone] | [phone] | | | | | ) CHG | Fax: | Fax: | | | | | MYOCARDIAL | [phone] | [phone] | | | | | SPECT | | | | | | | MULTIPLE | | | | | | | STUDIES MS | | | | | | | CV STRS TST | | | | | | | XERS&/OR RX | | | | | | | CONT ECG W/O | | | | | | | I&R MS | | | | | | [...] unspecified | [address] | [address] | | | | | type | [address] | [place], | | | | | Procedures | [place], | [place] | | | | | [place] | [place] [address] | [address] | | | | | Stress Test | Phone: | Phone: | | | | | (Vasodilator | [phone] | [phone] | | | | | ) CHG | Fax: | Fax: | | | | | MYOCARDIAL | [phone] | [phone] | | | | | SPECT | | | | | | | MULTIPLE | | | | | | | STUDIES MS | | | | | | | CV STRS TST | | | | | | | XERS&/OR RX | | | | | | | CONT ECG W/O | | | | | | | I&R MS | | | | | | [...] + + | 07/21/ | Hospital | [facility] | Daljit Singletary, | Chest pain, | | 2018 | Encounter | MED CTR NUCLEAR | MD [address] | unspecified type | | | | MEDICINE [address] | [address] [place], | | | | | [place] | [place] [address] | | | | | [place] [address] | [phone] | | | | | [phone] | | | | | | | Finished Cigar MakerPavel | | +--------+ + + + + [...] + + + +---------+ + + | [place]-3 Fatty | CAPS, one capsule by | [...] | 2019 | Visit | | Janeen, OPERATIONS LOGISTICS ANALYST [address] | | | | | | [place], | | | | | | [place] [address] | | | | | | [phone] | | | | | | | [...] | | | | | doctor, Starting Talia 07/21/18 at | | | | | [...] | | | | Starting [facility] 07/21/18 at 0822, For | | | | | | | 1 dose, Nuclear Medicine | | | | | | + +-------+ + +---+---+ +---+---+ | | | +---+---+ documented in this encounter"
--- OUTSIDE RECORDS SUMMARY | ~2020-06-15 | XMS | Encounter Summary ---
Demographics + + + | Address | [address] | | | [place] [address] | + + + | Home Phone [...] Providers + +------+ + | Care Manager Talent Acquisition Name | Role | Phone | + +------+ + | Michael Amanda DO | PCP | | + +------+ + Encounter Details +--------+ + + + + | Date | Type | Department | Care Team | Description | +--------+ + + + + | 01/30/ | Hospital | [facility] | Jay Gmabino MD | | | 2012 - | Encounter | HEART MED CTR | [address] | | | | | CARDIAC TELEMETRY | [address] [place], | | | 01/31/ | | [address] | [place] [address] | | | 2012 | | [place] | [phone] | | | | | [address] | | | | | | [phone] | | | +--------+ + + + [...] 1960 ADMISSION DATE: 01/30/2013 DISCHARGE DATE: 01/31/2013 [id number] / [id number] ADMITTING DIAGNOSES: 1. Symptomatic PVCs. 2. Sinus [...] 150, 1 to 2 tabs daily. 10. [place]-3 fatty acids 1000 mg b.i.d. MOE GAY ADM:01/30/13 [id number] 01/31/13 [place] DISCHARGE SUMMARY [id number] [facility] LAKESHIA Barlow [facility] MD Meena Pleitez THIS REPORT IS CONFIDENTIAL AND NOT TO BE RELEASED WITHOUT PROPER AUTHORIZATION. [facility] 11. Valacyclovir 500 mg daily. B. New medication added: Diltiazem CD 180 a day. FOLLOWUP: The patient has a followup appointment on 03/02/2013 at 10:[address] Niles meza at the [facility] [place], [address]. No heavy lifting or driving times 48 hours. YOANA Barlow MD A P [place]/[facility] #[id number] cc: MD Carmela Pleitez PA-C Electronically Signed 02/06/13 1616 LAKESHIA Barlow Electronically Signed 02/20/13 0731 Jay Gambino MD MOE GAY ADM:01/30/13 [id number] 01/31/13 [place] DISCHARGE SUMMARY [id number] [facility] LAKESHIA Barlow [facility] Jay Gambino MD R THIS REPORT IS CONFIDENTIAL AND NOT TO BE RELEASED WITHOUT PROPER AUTHORIZATION.Sandya lly signed by Jael Brown at 02/20/2013 7:31 AM Carmela Cramer - 02/01/20 13 8:44 AM PDT PATIENT NAME: MOE GAY Sex/Age: M / 52Y : 1960 ADMISSION DATE: 01/30/2013 DISCHARGE DATE: 01/31/2013 [id number] / [id number] ADMITTING DIAGNOSES: 1. Symptomatic PVCs. 2. Sinus [...] 150, 1 to 2 tabs daily. 10. [place]-3 fatty acids 1000 mg b.i.d. MOE GAY ADM:01/30/13 [id number] 01/31/13 [place] DISCHARGE SUMMARY [id number] [facility] LAKESHIA Barlow [facility] MD Meena Pleitez THIS REPORT IS CONFIDENTIAL AND NOT TO BE RELEASED WITHOUT PROPER AUTHORIZATION. [facility] 11. Valacyclovir 500 mg daily. B. New medication added: Diltiazem CD 180 a day. FOLLOWUP: The patient has a followup appointment on 03/02/2013 at 10:[address] Niles meza at the [facility] [place], [address]. No heavy lifting or driving times 48 hours. YOANA Barlow MD A P NLV/[facility] #[id number] cc: MD Carmela Pleitez PA-C Electronically Signed 02/06/13 1616 LAKESHIA Barlow MOE GAY ADM:01/30/13 [id number] 01/31/13 [place] DISCHARGE SUMMARY [id number] [facility] LAKESHIA Barlow [facility] MD Meena Pleitez THIS REPORT [...] GAY Sex/Age: M / 52Y : 1960 AUTO DISMANTLER: Jay Gambino MD DATE: 01/30/2013 PROCEDURE: 1. [...] In the right femoral vein an 8 [place]er, 7 [place] and 6 [place] sheaths were placed, in the right femoral artery an 8 [place] sheath was placed. At baseline, the patient was in atrially paced rhythm programmed to AAIR/DDDR at a lower rate limit of 70 beats per minute. Prior to the procedure I reprogrammed his device to AAI at a lower rate limit of 60. His MD interval was 150 ms, QRS 92 ms, [...] access was directed more MOE GAY ADM:10/04 [id number] 01/31/13 [place] CARDIAC PROCEDURE REPORT [id number] [facility] Jay Gambino MD E-Sign: [facility] THIS REPORT IS CONFIDENTIAL AND NOT TO BE RELEASED WITHOUT PROPER AUTHORIZATION. [facility] inferior than the prior PVCs but still [...] via the right femoral artery. An 8 [place] sheath was place d. The patient was [...] or if this helps. MONA GAY ADM:01/30/13 [id number] 01/31/13 [place] CARDIAC PROCEDURE REPORT [id number] [facility] Jay Gambino MD E-Sign: [facility] THIS REPORT IS CONFIDENTIAL AND NOT TO BE RELEASED WITHOUT PROPER AUTHORIZATION. [facility] Jay Gambino MD A A /[facility] #[id number] cc: Jay Gambino MD Electronically Signed 02/16/13 1100 Jay Gambino MD MONA GAY ADM:01/30/13 [id number] 01/31/13 [place] CARDIAC PROCEDURE REPORT [id number] [facility] Jay Gambino MD E-Sign: [facility] THIS REPORT IS CONFIDENTIAL AND [...] | | | | | | [place] [address] | | | | | | [phone] | | | | | | | [...] + + | YESSY JONES | [address] | [place] [address] | | | [facility] | | | | | LABORATORY | | | | + + + + + | [facility]ON[facility] | | | | | [facility] | | | | [...] SACRED | [address] | [place] [address] | | | [facility] | | | | | LABORATORY | | | | + + + + + | [facility] | | | | | [facility] | | | | [...] + + | Glucose | 113 (H)Comment: Haitian | 65 - 99 mg/dL | [facility] [...] + + | [facility]ON[facility] | [address] | [place] [address] | | | [facility] | [...]
--- OUTSIDE RECORDS SUMMARY | ~2020-06-15 | XMS | Encounter Summary ---
Demographics + + + | Address | [address] | | | [place] [address] | + + + | Home Phone [...] + | 10/01/ | Telephone | [facility] | Mary Bradshaw | Foot Pain | | 2013 | | CARE [address] | Guy Larkin MD | | | | | [place] | [address] | | | | | [address] | [place] | | | | | [phone] | [address] | | | | | | | [...] Romero Cert MA - 10/01/2014 5:08 PM [facility] pain clinic called to verify if patient [...] | | | | | | [place] [address] | | | | | | [phone] | | | | | | | | +--------+ + + + + documented as of this encounter Visit Diagnoses Not on filedocumented in this encounter"
--- OUTSIDE RECORDS SUMMARY | ~2020-06-15 | XMS | Encounter Summary ---
Demographics + + + | Address | [address] | | | [place] [address] | + + + | Home Phone [...] Providers + +------+ + | Care Outsole Leveler Name | Role | Phone | + [...] | (Fax) | | | | | [address] | | | | | | [phone] | | | +--------+ + + + [...] | | | | | | [place] [address] | | | | | | [phone] | | | | | | | | +--------+ + + + + documented as of this encounter Visit Diagnoses Not on filedocumented in this encounter"
--- OUTSIDE RECORDS SUMMARY | ~2020-06-15 | XMS | Encounter Summary ---
Demographics + + + | Address | [address] | | | [place] [address] | + + + | Home Phone [...] Team Providers + +------+ + | Care Rag Collector Name | Role | Phone | [...] [address] | | | | | | [place], [place] | (Fax) | | | | | [address] | | | | | | [phone] | | | +--------+ + + + [...] | | | | | | [place] [address] | | | | | | [phone] | | | | | | | | +--------+ + + + + documented as of this encounter Visit Diagnoses Not on filedocumented in this encounter"
--- OUTSIDE RECORDS SUMMARY | ~2020-06-15 | XMS | Encounter Summary ---
Demographics + + + | Address | [address] | | | [place] [address] | + + + | Home Phone [...] Providers + +------+ + | Care Admissions Rn Name | Role | Phone | [...] 2012 | | CARDIOLOGY [address] | [employer] [address] | | | | | [place], | [place], [place] | | | | | [place] [address] | [address] | | | | | [phone] | | | +--------+ + + + [...] PDTRecords sent to Dr Adrian leblanc at [facility] in [place]: Demographics, Chart notes 09-05-13, Echo 12-30-12 EKG 09-05-13, 04-24-13 Labs 08-08-13 [facility] 04-03-13, 01-30-13, 02-17-13 They will contact [...] | | | | | | [place] [address] | | | | | | [phone] | | | | | | | | +--------+ + + + + documented as of this encounter Visit Diagnoses Not on filedocumented in this encounter"
--- OUTSIDE RECORDS SUMMARY | ~2020-06-15 | XMS | Encounter Summary ---
Demographics + + + | Address | [address] | | | [place] [address] | + + + | Home Phone [...] Providers + +------+ + | Care Freight Conductor Name | Role | Phone | [...] | 01/30/ | Telephone | [facility] [place] | Daljit Singletary, | Other | | 2018 | | CARDIOLOGY [address] | | | | | [place], | [place], | | | | | [place] [address] | [place] [address] | | | | | [phone] | [phone] | | | | | | | [...] | | | | | | [place] [address] | | | | | | [phone] | | | | | | | [...] 05/02/2019, Expires: | | | | | eek coronary | 01/30/2020 | | | | | artery of eek | | | | | | heart [...] 05/02/2019, Expires: | | | | | eek coronary | 01/31/2020 | | | | | artery of eek | | | | | | heart [...]
--- OUTSIDE RECORDS SUMMARY | ~2020-06-15 | XMS | Encounter Summary ---
Demographics + + + | Address | [address] | | | [place] [address] | + + + | Home Phone [...] Team Providers + +------+ + | Care Operater Name | Role | Phone | + +------+ + | Kirk French MD | PCP | | + +------+ + Encounter Details +--------+ + + + + | Date | Type | Department | Care Team | Description | +--------+ + + + + | 01/19/ | Hospital | [facility] | Conversion | Pain | | 2017 | Encounter | CONVERSION DEP [address] | Transaction, | | | | | JUANJO HOLT | Provider Unknown | | | | | [place] | [phone] | | | | | [address] | | | | | | [phone] | | | +--------+ + + + [...] + + + +---------+ + + | [place]-3 Fatty | CAPS, one capsule by [...] | | | | | | [place], | | | | | | [place] [address] | | | | | | [phone] | | | | | | | [...]
--- OUTSIDE RECORDS SUMMARY | ~2020-06-15 | XMS | Encounter Summary ---
Demographics + + + | Address | [address] | | | [place] [address] | + + + | Home Phone [...] + +------+ + | Care Director Of Acquisitions Name | Role | Phone | + +------+ + | aJcek Holm MD | PCP | | + [...] + + | 04/24/ | Office | [facility] | [place], | Symptomatic PVCs | | 2012 | Visit | CARDIOLOGY [address] | [place] [place] [address] | (Primary Dx); CAD; | | | | [place], | [place], | Hyperlipidemia; | | | | [place] [address] | [place] [address] | PACEMAKER, PERMANENT | | | | [phone] | [phone] | - [employer] | | | | [...] tablet by mouth Daily. 30 tablet 6 [place]-3 Fatty Acids (SALMON OIL-1000 PO) [...] Reviewed records from PCP and notes from [facility]. Assessment: 1. Symptomatic PVCs status post ablation: [...] arrhythmia performed by Dr. Gambino at [facility] on 01/30/2013. Patient had spontaneous [...] to go back in 3 days to [place] for an attempt of ablation under general [...] He is upgraded to class I of [place] Heart Association functional class. There [...] made to ensure accuracy; however, inadvertent computerized facilities maintenance worker errors may be pre sent. documented [...] | | | | | | [place] [address] | | | | | | [phone] | | | | | | | | +--------+ + + + + documented as of this encounter Visit Diagnoses + + | Diagnosis | + + | Symptomatic PVCs - Primary Other premature beats | + + | CAD Coronary atherosclerosis of unspecified type of vessel, bear [place] or graft | + + | Hyperlipidemia Other and unspecified hyperlipidemia | + + | PACEMAKER, PERMANENT - [employer] 06/14/09GRANT Cardiac pacemaker in situ | + + documented in this encounter
--- OUTSIDE RECORDS SUMMARY | ~2020-06-15 | XMS | Encounter Summary ---
Demographics + + + | Address | [address] | | | [place] [address] | + + + | Home Phone [...] Providers + +------+ + | Care Internet Cafe Manager Name | Role | Phone | [...] 2019 | | GASTROENTEROLOGY | [address] [facility] | Visit (wants to | | | | [address] [facility] [facility] | [address] [place], [place] | cancel his office | | | | [address] [place], [place] | [address] | appointment today) | | | | [address] | | | | | | [phone] | | | +--------+ + + + [...] encounter Miscellaneous Notes Telephone Encounter - MattKailyn, PBX TECHNICIAN - 12/14/2018 12:00 PM PSTPatient calls in, [...] horrible, he states he has been to [place], [place] , [place] and [place], and they are all bad, and could [...] | | | | | | [place] [address] | | | | | | [phone] | | | | | | | | +--------+ + + + + documented as of this encounter Visit Diagnoses Not on filedocumented in this encounter"
--- OUTSIDE RECORDS SUMMARY | ~2020-06-15 | XMS | Encounter Summary ---
Demographics + + + | Address | [address] | | | [place] [address] | + + + | Home Phone [...] Team Providers + +------+ + | Care Eligibility Consultant Name | Role | Phone | [...] | 07/01/ | Hospital | [facility] | Scotty [place], | DDD (degenerative | | 2018 | Encounter | MED CTR XRAY [address] | [address] | disc disease), | | | | [place] | [address] | lumbar; Chronic | | | | [place] [address] | [place] [address] | left-sided low back | | | | [phone] | [phone] | pain with left-sided | | | [...] + + + +---------+ + + | [place]-3 Fatty | CAPS, one capsule by | [...] | | | | | | [place] [address] | | | | | | [phone] | | | | | | | [...]
--- OUTSIDE RECORDS SUMMARY | ~2020-06-15 | XMS | Encounter Summary ---
Demographics + + + | Address | [address] | | | [place] [address] | + + + | Home Phone [...] Team Providers + +------+ + | Care Prop Sawyer Name | Role | Phone | [...] | | | | [place] | [phone] | | | | | [address] | | | | | | [phone] | | | +--------+ + + + [...] + + + +---------+ + + | [place]-3 Fatty | CAPS, one capsule by | [...] | | | | | | | #[id number], exp 07/2016 | | | | | [...] | | | | | | [place], | | | | | | [place] [address] | | | | | | [phone] | | | | | | | [...]
--- OUTSIDE RECORDS SUMMARY | ~2020-06-15 | XMS | Encounter Summary ---
Demographics + + + | Address | [address] | | | [place] [address] | + + + | Home Phone [...] Providers + +------+ + | Care Maintenance Engineer Oil Field Name | Role | Phone | [...] | unspecified | MD Jacek | [address] | | | | | type | [address] | [place], | | | | | Unintentiona | [place] | [place] [address] | | | | | l weight | [place], [place] | Phone: | | | | | loss | [address] | [phone] | | | | | Procedures | Phone: | Fax: | | | | | [place] [facility] | [phone] | [phone] | | | | | INTRALUMINAL | Fax: | | | | | | | [phone] | | | | | | ESOPHAGUS-IL [...] (Primary Dx); | | | | [address] [place], [place] | [place] [address] | Unintentional weight | | | | [address] | [phone] | loss | | | | [phone] | | | +--------+ + + + [...] W | | | | | | [place], | | | | | | [place] [address] | | | | | | [phone] | | | | | | | [...]
--- OUTSIDE RECORDS SUMMARY | ~2020-06-15 | XMS | Encounter Summary ---
Demographics + + + | Address | [address] | | | [place] [address] | + + + | Home Phone [...] Providers + +------+ + | Care Outpatient Pharmacy Manager Name | Role | Phone | [...] | | | | CHRISTOPH DINH | [phone] | | | | | [address] | | | | | | [phone] | | | +--------+ + + + [...] | | | | | | | #[id number], exp 07/2016 | | | | | [...] W | | | | | | [place], | | | | | | [place] [address] | | | | | | [phone] | | | | | | | [...] Note | + + | Kalpesh rBown Imani - 07/07/2019 5:05 AM PDT This is a non-reportable procedure | | without a radiologist report and isused for image storage only | + + documented in this encounter Visit Diagnoses + + | Diagnosis | + + | Pain Generalized pain | + + documented in this encounter"
--- OUTSIDE RECORDS SUMMARY | ~2020-06-15 | XMS | Encounter Summary ---
Demographics + + + | Address | [address] | | | [place] [address] | + + + | Home Phone [...] Providers + +------+ + | Care Campaign Management Specialist Name | Role | Phone [...] | 08/04/ | Telephone | [facility] [place] | Silvia, | Other (4 week event | | 2017 | | CARDIOLOGY [address] | PARISA [place] [address] | monitor ) | | | | [place], | [place], | | | | | [place] [address] | [place] [address] | | | | | [phone] | [phone] | | | | | | | [...] prior to appointment. Will route message to hotel front desk agent to call and reschedule appointment. ...........................................TOYIN ANDRADE [...] | | | | | | [place] [address] | | | | | | [phone] | | | | | | | | +--------+ + + + + documented as of this encounter Visit Diagnoses Not on filedocumented in this encounter"
--- OUTSIDE RECORDS SUMMARY | ~2020-06-15 | XMS | Encounter Summary ---
Demographics + + + | Address | [address] | | | [place] [address] | + + + | Home Phone [...] Providers + +------+ + | Care Channel Director Name | Role | Phone | [...] 2019 | | GASTROENTEROLOGY | [address], [place] | | | | | [address] [place] | [address] [place], [place] | | | | | [address] [place], [place] | [address] | | | | | [address] | | | | | | [phone] | | | +--------+ + + + [...] and cursing; he stated he went to [facility] last night with sto mach cramps, nausea; they gave imodium IV; he is now on his day of no food or able to ke ep fluids down; he refuses to call [facility] at this time to find out [...] Provider/Nurse: Dr. Daniel / Darryn Call back number:[phone] elephone Encounter - Lisa Bonner RN - 05/08/2019 2:04 PM PDTReturned call to patient; suggested he conta ct [facility]; provided the toll free number listed from the referral; [phone]. He s tated he was not sure he wanted to go now because it is taking so long; advised it can take a while for referrals to get approved, then paperwork gathered and sent; once received the [facility] reviews and assigns; he will call [...] anywhere with the numb er provided to [facility] he will contact this clinic. elephone Encounter - Anastacio Bennett - 05/08/2019 1:46 PM PDTName of Caller:Moe Sanchez "Amilcar" Name of Patient:Moe Sanchez "Amilcar" Reason for call: Patient called and wanted to know the status of his referral to [facility]. Pham ent stated that has not received a call from them and informed patient that the clinical sta ff re-faxed referral to [facility] on 04/10/19. Patient wanted to speak with our hammer shop supervisor but e was unavailable. Patient didn't have a pen and paper to write her number done. Patient sta kevin that he going to head to the hospital since he in severe pain/IBS. Routing to clinical gena warner. Provider/Nurse: Dr. Daniel/ Darryn Severiano back number: [phone] documented [facility] this [facility] Plan of Treatment +--------+ + + + [...] | | | | | | [place] [address] | | | | | | [phone] | | | | | | | | +--------+ + + + + documented as of this encounter Visit Diagnoses Not on filedocumented in this encounter
--- OUTSIDE RECORDS SUMMARY | ~2020-06-15 | XMS | Encounter Summary ---
Demographics + + + | Address | [address] | | | [place] [address] | + + + | Home Phone [...] Providers + +------+ + | Care Slot Operations Director Name | Role | Phone | + +------+ + | Kirk French MD | PCP | | + +------+ + Encounter Details +--------+ + + + + | Date | Type | Department | Care Team | Description | +--------+ + + + + | 06/19/ | Abstract | [facility] [place] | Geri nAgel, | | | 2014 | | CARDIOLOGY [address] | ANVIL SEATING PRESS OPERATOR [address] [place] | | | | | [place], | [place], [place] | | | | | [place] [address] | [address] | | | | | [phone] | | | +--------+ + + + [...] | | | | | | [place] [address] | | | | | | [phone] | | | | | | | | +--------+ + + + + documented as of this encounter Visit Diagnoses Not on filedocumented in this encounter"
--- OUTSIDE RECORDS SUMMARY | ~2020-06-15 | XMS | Encounter Summary ---
Demographics + + + | Address | [address] | | | [place] [address] | + + + | Home Phone [...] +------+ + | Care Vice President Of Recruiting Name | Role | Phone | + +------+ + | Kirk French MD | PCP | | + +------+ + Reason for Visit +--------+--------+ + | Reason | Onset | Comments | | | Date | | +--------+--------+ + | Other | 03/24/ | chest pain | | | 2019 | | +--------+--------+ + Encounter Details +--------+ + + + + | Date | Type | Department | Care Team | Description | +--------+ + + + + | 03/24/ | Telephone | [facility] | [place], | Other (chest pain) | | 2018 | | CARDIOLOGY [address] | Janeen FAMILY SERVICES WORKER [address] | | | | | [place], | [place], | | | | | [place] [address] | [place] [address] | | | | | [phone] | [phone] | | | | | | | [...] Telephone Encounter - Darlene Tirado RN - 03/24/2019 1:49 PM PDTFred called, he has had increased stress over the last few days. He has developed chest pain unlike any he has had before. He has been using nitro and it seems to take quite a while for it to help. He is paulino ving it radiate to his neck and arm and he is very concerned about it. He was advised that he should go to ER for evaluation. ...........................................Darlene maddox RN on 03/24/19 at 13:51 documented in this encounter Plan of Treatment [...] | | | | | | [place] [address] | | | | | | [phone] | | | | | | | | +--------+ + + + + documented as of this encounter Visit Diagnoses Not on filedocumented in this encounter"
--- OUTSIDE RECORDS SUMMARY | ~2020-06-15 | XMS | Encounter Summary ---
Demographics + + + | Address | [address] | | | [place] [address] | + + + | Home Phone [...] Providers + +------+ + | Care Assembler Leather Goods Name | Role | Phone | + [...] | CARDIOLOGY [address] | [address] | reprogramming/check | | | | [place], | [place], | DO [place] DELETE | | | | [place] [address] | [place] [address] | (Primary Dx); | | | | [phone] | [phone] | Pacemaker - | | | | [...] | | | | | | [place] [address] | | | | | | [phone] | | | | | | | [...]
--- OUTSIDE RECORDS SUMMARY | ~2020-06-15 | XMS | Encounter Summary ---
Demographics + + + | Address | [address] | | | [place] [address] | + + + | Home Phone [...] Providers + +------+ + | Care Technical Aide Name | Role | Phone | [...] + + | 05/30/ | Telephone | [facility] | Kirk French | Medication Reaction | | 2019 | | [facility] | MD [address] | | | | | [address] | [address] | | | | | [address] | [place] [address] | | | | | [place], [place] | [phone] | | | | | [address] | | | | | | [phone] | | | +--------+ + + + [...] transfer the call to a lorraine bellamy financial report service sales agent was caller made aware that if at [...] | | | | | | [place] [address] | | | | | | [phone] | | | | | | | | +--------+ + + + + documented as of this encounter Visit Diagnoses Not on filedocumented in this encounter"
--- OUTSIDE RECORDS SUMMARY | ~2020-06-15 | XMS | Encounter Summary ---
Demographics + + + | Address | [address] | | | [place] [address] | + + + | Home Phone [...] Team Providers + +------+ + | Care Score Caller Name | Role | Phone | [...] | | CHRISTOPH Nguyen | [place] | | | | | [address] | [address] | | | | | [phone] | | | +--------+ + + + [...] to patient and faxed lab orders to [facility] lab in [place]. elephone Encounter - Kira Montoya RN - [...] | | | | | | [place] [address] | | | | | | [phone] | | | | | | | | +--------+ + + + + documented as of this encounter Visit Diagnoses Not on filedocumented in this encounter"
--- OUTSIDE RECORDS SUMMARY | ~2020-06-15 | XMS | Encounter Summary ---
Demographics + + + | Address | [address] | | | [place] [address] | + + + | Home Phone [...] Providers + +------+ + | Care Laborer Plumbing Name | Role | Phone | + [...] [place], | | | | | | [place] [address] | | | | | | [phone] | | | +--------+ + + + [...] | | | | | | [place] [address] | | | | | | [phone] | | | | | | | | +--------+ + + + + documented as of this encounter Visit Diagnoses Not on filedocumented in this encounter"
--- OUTSIDE RECORDS SUMMARY | ~2020-06-15 | XMS | Encounter Summary ---
Demographics + + + | Address | [address] | | | [place] [address] | + + + | Home Phone [...] Team Providers + +------+ + | Care Fresh Foods Technician Name | Role | Phone | [...] + + | 01/22/ | Refill | [facility] | Kirk French | Medication Refill | | 2019 | | [facility] | MD [address] | | | | | PR[address] | [address] | | | | | [address] | [place] [address] | | | | | [place], [place] | [phone] | | | | | [address] | | | | | | [phone] | | | +--------+--------+ + + + [...] Miscellaneous Notes Telephone Encounter - Geri Bear Pecan Picker - 01/23/2020 12:40 PM PSTRefill Shanell ctronically signed by Geri Bear Pecan Picker at 01/23/2020 12:40 PM PSTdocumented in this [...] | | | | | | [place] [address] | | | | | | [phone] | | | | | | | | +--------+ + + + + documented as of this encounter Visit Diagnoses Not on filedocumented in this encounter"
--- OUTSIDE RECORDS SUMMARY | ~2020-06-15 | XMS | Encounter Summary ---
Demographics + + + | Address | [address] | | | [place] [address] | + + + | Home Phone [...] Team Providers + +------+ + | Care Shredded Filler Cigar Maker Machine Name | Role | Phone | + +------+ + | Michael Amanda DO | PCP | | + +------+ + Encounter Details +--------+ + + + + | Date | Type | Department | Care Team | Description | +--------+ + + + + | 05/11/ | Hospital | [facility] | Conversion | Lumbago; | | 2013 | Encounter | [facility] X[facility] | Transaction, | Postlaminectomy | | | | [address] | Provider Unknown | syndrome, cervical | | | | [place], [place] | | region; Cervicalgia | | | | [address] | (Fax) | | | | | [phone] | | | +--------+ + + + [...] + + + +---------+ + + | Clay-3 Fatty | CAPS, one capsule by | [...] Date of Service: 05/11/14 1146 Status: Signed High School Admissions Representative: Christine Mcgraw Report called to Brittany [...] | | | | | | [place] [address] | | | | | | [phone] | | | | | | | [...]
--- OUTSIDE RECORDS SUMMARY | ~2020-06-15 | XMS | Encounter Summary ---
Demographics + + + | Address | [address] | | | [place] [address] | + + + | Home Phone [...] + +------+ + | Care School Bus Driver/Teacher Assistant Name | Role | Phone | [...] | | | | [place] | | [address] Phone: | | | | | CYSTO/URETER | | [phone] | | | | | O | | Fax: | | | | | W/LITHOTRIPS | | [phone] | | | | | Y &INDWELL [...] + + | 04/13/ | Surgery | [facility] | Matthew Uriarte | Cystoscopy, Left | | 2018 | | MED CTR OR INTRA OP | Dahl, MD [address] | ureteroscopy with | | | | [address] | [address] [place] [address] | laser lithotripsy, | | | | [place] | [address] | Left ureteral stent | | | | [address] | | placement | | | | [phone] | | | +--------+---------+ + + + [...] Care Everywhere.Kidney Stones, Treating: Ureteroscopic Stone Removal (Lao)Stents, Ureteral (Lao)documented in this encounter Medications at Time [...] | | | | | | | [place] coronary | | | | | | | artery of [place] | | | | | | [...] signed by: Matthew Uriarte MD, 04/13/2019 8:09 [facility] Jaron Galaviz MD - 04/07/2019 9:45 [...] CV LHC; Surgeon: Daljit Singletary MD; Location: [facility] CV LAB CARDIAC CATHERIZATION N/A 01/25/2019 Procedure: CV Cor Angio; Surgeon: Daljit Singletary MD; Location: [facility] CV LAB COLONOSCOPY N/A 12/24/2017 Procedure: COLONOSCOPY; Surgeon: Emmanuel Daniel MD; Location: [facility] MEDICAL PROCEDURE UNIT COLONOSCOPY N/A 01/05/2019 Procedure: COLONOSCOPY; Surgeon: Emmanuel Daniel MD; Location: [facility] MEDICAL PROCEDURE UNIT EGD 12/24/2017 [...] Procedure: EGD; Surgeon: Emmanuel Daniel MD; Location: [facility] MEDICAL PROCEDURE UNIT UPPER GASTROINTESTINAL ENDOSCOPY N/A 01/05/2019 Procedure: EGD; Surgeon: Emmanuel Daniel MD; Location: [facility] MEDICAL PROCEDURE UNIT VASECTOMY Family [...] EVERY DAY, Disp: 90 tablet, Rfl: 3 [facility] Natural Products (OSTEO BI-FLEX/5-LOXIN ADVANCED PO), Take [...] 911, Disp: 100 ta blet, Rfl: 3 [place]-3 Fatty Acids (SALMON OIL-1000 PO), CAPS, one capsule by mouth daily twice daily , Disp: , Rfl: ondansetron (ZOFRAN ODT) 4 mg disintegrating tablet, Take 4 mg by mouth., Disp: , Rfl: ONE TOUCH DELICA LANCETS [facility], Check glucose as needed for hypoglycemia, Disp: [...] have not thoroughly proofread this note, and aircraft charter dispatcher errors are very likely to occur. CC: Kirk French MD documented in this encounter Miscellaneous Notes Op Note - Matthew Uriarte MD - 04/13/2019 1:03 PM PDTOperative Note Pt. Name/Age/: Moe Sanchez 59 y.o. 1960 Med. Record Number: [id number] Date of admission: 04/13/2019 Date of Operation/Procedure: 04/13/2019 Preoperative Diagnosis: Kidney stone Postoperative Diagnosis: same Surgeon: Matthew Uriarte MD Full Service Supervisor(s): none Anesthesia Provider(s): Anesthesiologist: Jay Benjamin MD [...] leave strings on the stent. A 6 Bulgarian variable length stent was then placed over [...] Electronically Signed by: Matthew Uriarte, 04/13/2019 13:04 [facility] documented in this encounter Plan of [...] | | | | | | [place], | | | | | | [place] [address] | | | | | | [phone] | | | | | | | [...] [facility] | | | | | | at:[phone]. | | | | + + + [...] [address], | REFERENCE LAB | | [place], [place] [id number] Instructor Military Science: Yeny Rios MD, Phone: | ARSH CASTANON | | [phone] | | + + + + + + + + | Performing | Address | City/State/Zipcode | Phone Number | | Organization | | | | + + + + + | REFERENCE LAB | [address] | [place], [place] | [phone] | | [facility] | [facility] | [address] | | + + + + + [...] [address] | [place] | [phone] | | [facility] | | [address] | | | - LABORATORY | | [...] [address] | [place] | [phone] | | [facility] | | [address] | | | - LABORATORY | | [...] [address] | [place] | [phone] | | [facility] | | [address] | | | - LABORATORY | | [...] + | [facility] [facility] | [address] | [place] | [phone] | | [facility] | | [address] | | | - LABORATORY | | [...] | | MEDICAL | | | | mL/min/1.91k1Bmwa than | | CENTER - | | [...] [address] | [place] | [phone] | | [facility] | | [address] | | | - LABORATORY | | [...] day), First | | | dose on [facility] 04/13/19 at 1400, | | | [...] HOUR PRN, | | | Pain, Starting [facility] 04/13/19 at | | | 1046, [...] | | | | | | | [id number]-[id number] use of at least | | | [...]
--- OUTSIDE RECORDS SUMMARY | ~2020-06-15 | XMS | Encounter Summary ---
Demographics + + + | Address | [address] | | | [place] [address] | + + + | Home Phone [...] Team Providers + +------+ + | Care Counting Machine Operator Name | Role | Phone | + +------+ + | Kirk French MD | PCP | | + +------+ + Encounter Details +--------+ + + + + | Date | Type | Department | Care Team | Description | +--------+ + + + + | 10/25/ | Hospital | [facility] | Kirk French | Chronic pain | | 2017 | Encounter | MED CTR ULTRASOUND | MD Eva Guidry | disorder; Stomach | | | | [address] [place] | [address] | ache; Obesity, | | | | [place], [place] | [place] [address] | unspecified | | | | [address] | [phone] | classification, | | | | [phone] | | unspecified obesity | | | [...] + + + +---------+ + + | [place]-3 Fatty | CAPS, one capsule by | [...] | | | | | | [place] [address] | | | | | | [phone] | | | | | | | [...]
--- OUTSIDE RECORDS SUMMARY | ~2020-06-15 | XMS | Encounter Summary ---
Demographics + + + | Address | [address] | | | [place] [address] | + + + | Home Phone [...] Providers + +------+ + | Care Order Packer Name | Role | Phone | [...] Refill | | 2013 | | [facility] | DO [address] | | | | | [address] | [place] | | | | | [place], [place] | [address] | | | | | [address] | | | | | | [phone] | | | +--------+--------+ + + + [...] | | | | | | [place] [address] | | | | | | [phone] | | | | | | | | +--------+ + + + + documented as of this encounter Visit Diagnoses Not on filedocumented in this encounter"
--- OUTSIDE RECORDS SUMMARY | ~2020-06-15 | XMS | Encounter Summary ---
Demographics + + + | Address | [address] [place] [address] [address] | | | [place] [address] | + + + | Home Phone [...] [place] | | | | | [address] | | + + + + + Care Team Providers + +------+ + | Care Bank President Name | Role | Phone | [...] Yao | | | | | at [facility] | [facility] | | | | | [address] | [place] [address] | | | | | [address] | | | | | | [place], [address] [place] [address] | | | | | | [place], [place] | | | | | | [address] | | | | | | [phone] | | | +--------+ + + + [...] view image for the detailed interpretation from [employer] results. | CARDIOLOGY | + + + + + + + + | Performing | Address | City/State/Zipcode | Phone Number | | Organization | | | | + + + + + | [facility] | [address] | [place], [place] | | | CARDIOLOGY | [address] | [address] | | + + + + + documented in this encounter Visit Diagnoses Not on filedocumented in this encounter"
--- OUTSIDE RECORDS SUMMARY | ~2020-06-15 | XMS | Encounter Summary ---
Demographics + + + | Address | [address] | | | [place] [address] | + + + | Home Phone [...] + +------+ + | Care Director Of Automation Name | Role | Phone | + [...] | | CARDIOLOGY [address] | [address] | Dx); SINUS | | | | [place], | [place], | [place] | | | | [place] [address] | [place] [address] | | | | | [phone] | [phone] | | | | | | | [...] W | | | | | | [place], | | | | | | [place] [address] | | | | | | [phone] | | | | | | | | +--------+ + + + + documented as of this encounter Visit Diagnoses + + | Diagnosis | + + | Chest pain - Primary Chest pain, unspecified | + + | SINUS BRADYCARDIA Sinoatrial node dysfunction | + + documented in this encounter
--- OUTSIDE RECORDS SUMMARY | ~2020-06-15 | XMS | Encounter Summary ---
Demographics + + + | Address | [address] | | | [place] [address] | + + + | Home Phone [...] Providers + +------+ + | Care Manager Business Information Name | Role | Phone | + [...] + + | 05/03/ | Telephone | [facility] | Kirk French | Medication Orders | | 2019 | | [facility] | MD [address] | | | | | PR[address] | [address] | | | | | [address] | [place] [address] | | | | | [place], [place] | [phone] | | | | | [address] | | | | | | [phone] | | | +--------+ + + + [...] | | | | | | [place] [address] | | | | | | [phone] | | | | | | | | +--------+ + + + + documented as of this encounter Visit Diagnoses Not on filedocumented in this encounter"
--- OUTSIDE RECORDS SUMMARY | ~2020-06-15 | XMS | Encounter Summary ---
Demographics + + + | Address | [address] | | | [place] [address] | + + + | Home Phone [...] Providers + +------+ + | Care Displayer Name | Role | Phone | + +------+ + | Kirk French MD | PCP | | + +------+ + Encounter Details +--------+ + + + + | Date | Type | Department | Care Team | Description | +--------+ + + + + | 01/19/ | Hospital | [facility] | Conversion | Pain | | 2017 | Encounter | CONVERSION DEP [address] | Transaction, | | | | | [address] | Provider Unknown | | | | | [place] | [phone] | | | | | [address] | | | | | | [phone] | | | +--------+ + + + [...] + + + +---------+ + + | [place]-3 Fatty | CAPS, one capsule by | [...] W | | | | | | [place], | | | | | | [place] [address] | | | | | | [phone] | | | | | | | [...]
--- OUTSIDE RECORDS SUMMARY | ~2020-06-15 | XMS | Encounter Summary ---
Demographics + + + | Address | [address] [place] [address] [address] | | | [place] [address] | + + + | Home Phone [...] [place] | | | | | [address] | | + + + + + Care Team Providers + +------+ + | Care Certified Professional Controller Name | Role | Phone | [...] | | | | | unspecified | [address] | | | | | | type Rectal | Ave | | | | | | bleeding | [facility] [place] | | | | | | Procedures | [address] | | | | | | CONSULT TO | Phone: | | | | | | GASTROENTERO | [phone] | | | | | | LOGY | Fax: | | | | | | | [phone] | | + +--------+ + + + [...] | | | | | Procedures | [place], [place] | [facility] and | | | | | CONSULT TO | [address] | Healing, | | | | | ENDOSCOPY | Phone: | Building 2 | | | | | UNIT: SM | [phone] | [place], [place] | | | | | [address] | Fax: | [address] | | | | | CAPSULE | [phone] | Phone: | | | | | ENDOSCOPY | | [phone] | | | | | | | Fax: | | | | | | | [phone] | + +--------+ + + + + [...] | | | | | bleeding | [place], [place] | [facility] and | | | | | Procedures | [address] | Healing, | | | | | CONSULT TO | Phone: | Building [address] | | | | | ENDOSCOPY | [phone] | [place], [place] | | | | | UNIT: | Fax: | [address] | | | | | COLONOSCOPY | [phone] | Phone: | | | | | | | [phone] | | | | | | | Fax: | | | | | | | [phone] | +--------+--------+ + + + + Reason [...] 2020 | | Center at [facility] [address] | MD [address] | | | | | [address] [place] | [place], [place] | | | | | for Health and | [address] | | | | | Healing, [address] | [phone] | | | | | [place], [place] | | | | | | [address] | | | | | | [phone] | | | +--------+ + + + [...]
--- OUTSIDE RECORDS SUMMARY | ~2020-06-15 | XMS | Encounter Summary ---
Demographics + + + | Address | [address] | | | [place] [address] | + + + | Home Phone [...] Team Providers + +------+ + | Care Groundhand Name | Role | Phone | + [...] 2016 | | CARDIOLOGY [address] | SENIOR EMBEDDED SOFTWARE ENGINEER [address] | | | | | [place], | [place], [place] | | | | | [place] [address] | [address] | | | | | [phone] | | | +--------+--------+ + + + [...] | | | | | | [place] [address] | | | | | | [phone] | | | | | | | | +--------+ + + + + documented as of this encounter Visit Diagnoses Not on filedocumented in this encounter"
--- OUTSIDE RECORDS SUMMARY | ~2020-06-15 | XMS | Encounter Summary ---
Demographics + + + | Address | [address] | | | [place] [address] | + + + | Home Phone [...] abdominal | [address] | [address], | | | | | pain | [address] | [address] | | | | | Chronic pain | [address] | [place], | | | | | syndrome | [place], [place] | [place] [address] | | | | | Procedures | [address] | Phone: | | | | | Office Visit | Phone: | [phone] | | | | | | [phone] | Fax: | | | | | | Fax: | [phone] | | | | | | [phone] | | +--------+--------+ + + + + Encounter Details +--------+---------+ + + + | Date | Type | Department | Care Team | Description | +--------+---------+ + + + | 12/02/ | Office | [facility] | Emmanuel Daniel MD | Diarrhea, | | 2018 | Visit | GASTROENTEROLOGY | [address], [address] | unspecified type | | | | [address] | [address] [place], [place] | (Primary Dx); Weight | | | | [address] [place], [place] | [address] | loss, | | | | [address] | | unintentional; | | | | [phone] | | Generalized | | | | [...] any noct urnal symptoms. He was in [facility] 2 years ago and required hospitalization in [...] severe diarrhea probable infective occurring while visiting [facility] Diarrhea etiology and significance to [...] | | | | | | [place] [address] | | | | | | [phone] | | | | | | | [...]
--- OUTSIDE RECORDS SUMMARY | ~2020-06-15 | XMS | Encounter Summary ---
Demographics + + + | Address | [address] | | | [place] [address] | + + + | Home Phone [...] Providers + +------+ + | Care Molded Frames Assembler Name | Role | Phone | [...] W | reprogramming/check | | | | [address], | [address] [place] | [place] | | | | [place] [address] | [place] [address] | (Primary Dx); | | | | [phone] | [phone] | Pacemaker - | | | | [...] | | | | | | [place] [address] | | | | | | [phone] | | | | | | | [...]
--- OUTSIDE RECORDS SUMMARY | ~2020-06-15 | XMS | Encounter Summary ---
Demographics + + + | Address | [address] | | | [place] [address] | + + + | Home Phone [...] Providers + +------+ + | Care Bilingual Spanish Inbound Sales Name | Role | Phone | [...] unspecified | [address] | | | | | type | [address] | [place], | | | | | Procedures | [place], | [place] | | | | | [place] | [place] [address] | [address] | | | | | Stress Test | Phone: | Phone: | | | | | (Vasodilator | [phone] | [phone] | | | | | ) CHG | Fax: | Fax: | | | | | MYOCARDIAL | [phone] | [phone] | | | | | SPECT | | | | | | | MULTIPLE | | | | | | | STUDIES NC | | | | | | | CV STRS TST | | | | | | | XERS&/OR RX | | | | | | | CONT ECG W/O | | | | | | | I&R NC | | | | | | [...] | type | [address] | [address] | | | | | Procedures | [address] [place] | [place], | | | | | FUP | [place] | [place] [address] | | | | | | [address] | Phone: | | | | | | Phone: | [phone] | | | | | | [phone] | Fax: | | | | | | Fax: | [phone] | | | | | | [phone] | | +--------+ + + + + + Encounter Details +--------+---------+ + + + | Date | Type | Department | Care Team | Description | +--------+---------+ + + + | 06/27/ | Office | [facility] | Sydni Singletary, | Pacemaker | | 2018 | Visit | CARDIOLOGY [address] | [address] [facility] | reprogramming/check | | | | [address] [place], | 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 [facility] He was last seen 01/05/2018 at which time patient was to continue with present plan and medi cations. Since that time, patient has been seen at [place] emergency department on 018 for chest pain [...] Preventative health care Coronary artery disease involving tuolumne coronary artery of tuolumne heart without angina pectoris Cannabis abuse, daily [...] every evening 90 tablet 0 [facility] Natural [...] 3RD DOSE, CALL 911 100 tablet 3 [place]-3 Fatty Acids (SALMON OIL-1000 PO) CAPS, one capsule by mouth daily twice daily ONE TOUCH DELICA LANCETS [facility] [...] to go back in 3 days to [place] for an attempt of ablation under general [...] PVCs. 2. Non-critical Coronary artery disease involving tuolumne coronary artery of tuolumne heart [facility] angina pectoris: A. Normal exercise sestamibi [...] He is in a class I of [place] Heart Association functiona l class. There is [...] reviewed and edited this note. Allyson Curtis Product Promoter Sales Person 06/27/2018 Sydni Clemente MD, personally performed the services described in this documentation, as scribed in my presence and it is both accurate and complete. Allyson Curtis, Med Ass t 06/27/2018 14:15 Electronically signed by: Sydni Singletary MD [facility] 06/27/2018 Portions of this chart may have been created with [employer] voice recognition software. Occasi onal wrong-word [...] | | | | | | [place] [address] | | | | | | [phone] | | | | | | | [...] 08/25/2018 13:12 Wireless even study from | [facility] | | 07/21 until 08/22/2018. [...] SYDNI | | | | | | ([id number]) on 06/27/2018 | | | | | [...]
--- OUTSIDE RECORDS SUMMARY | ~2020-06-15 | XMS | Encounter Summary ---
Demographics + + + | Address | [address] | | | [place] [address] | + + + | Home Phone [...] Providers + +------+ + | Care Grinding Machine Operator Name | Role | [...] [place], | | | | | | [place] [address] | | | | | | [phone] | | | +--------+ + + + [...] | | | | | | [place] [address] | | | | | | [phone] | | | | | | | | +--------+ + + + + documented as of this encounter Visit Diagnoses Not on filedocumented in this encounter"
--- OUTSIDE RECORDS SUMMARY | ~2020-06-15 | XMS | Encounter Summary ---
Demographics + + + | Address | [address] | | | [place] [address] | + + + | Home Phone [...] Team Providers + +------+ + | Care Deicer Finisher Name | Role | Phone | [...] | | | | | region | [address] | | | | | | Procedures | [address] | | | | | | CT | [place], [place] | | | | | | Myelography | [address] | | | | | | Lumbar Spine | Phone: | | | | | | | [phone] | | | | | | | Fax: | | | | | | | [phone] | | +--------+--------+ + + + + [...] | | | | | region | [address] | | | | | | Procedures | [address] | | | | | | CT | [place], [place] | | | | | | Myelography | [address] | | | | | | Lumbar Spine | Phone: | | | | | | | [phone] | | | | | | | Fax: | | | | | | | [phone] | | +--------+--------+ + + + + Encounter Details +--------+ + + + + | Date | Type | Department | Care Team | Description | +--------+ + + + + | 04/07/ | Hospital | [facility] | Pia Akhtar | Spinal stenosis, | | 2016 | Encounter | MED CTR CT [address] | MD [address] | lumbar region | | | | [place], | [address] | | | | | [place] [address] | [place] [address] | | | | | [phone] | [phone] | | | | | | | [...] + + + +---------+ + + | [place]-3 Fatty | CAPS, one capsule by [...] | | | | | | [place] [address] | | | | | | [phone] | | | | | | | [...]
--- OUTSIDE RECORDS SUMMARY | ~2020-06-15 | XMS | Encounter Summary ---
Demographics + + + | Address | [address] | | | [place] [address] | + + + | Home Phone [...] Providers + +------+ + | Care Physical Therapist Name | Role | Phone | + +------+ + PCP | Unavailable | + +------+ + Encounter Details +--------+ + + + + | Date | Type | Department | Care Team | Description | +--------+ + + + + | 03/08/ | [facility] | [facility] | Emmanuel Daniel MD | | | 2006 | Encounter | MED CTR GENERIC OP | [address] | | | | | CONV DEPT [address] | [address] [place] | | | | | [place], | [address] | | | | | [place] [address] | | | | | | [phone] | | | +--------+ + + + [...] | | | | | | [place] [address] | | | | | | [phone] | | | | | | | | +--------+ + + + + documented as of this encounter Visit Diagnoses Not on filedocumented in this encounter"
--- OUTSIDE RECORDS SUMMARY | ~2020-06-15 | XMS | Encounter Summary ---
Demographics + + + | Address | [address] | | | [place] [address] | + + + | Home Phone [...] Providers + +------+ + | Care Lead Etl Developer Name | Role | Phone [...] | MD [address] | [address] | | | | | hypertension | [address] | [place], | | | | | Sick sinus | [address] | [place] | | | | | syndrome [facility] | [address] | | | | | (HCC) | [address] | Phone: | | | | | Ventricular | Phone: | [phone] | | | | | premature | [phone] | Fax: | | | | | depolarizati | Fax: | [phone] | | | | | on | [phone] | | | | | | Tachycardia, | | | | | | | unspecified | | | | | | | | | | | | | | Atherosclero | | | | | | | tic heart | | | | | | | disease of | | | | | | | tuolumne | | | | | | | [...] + + | 05/01/ | Office | [facility] | Silvia, | Sinoatrial node | | 2020 | Visit | CARDIOLOGY [address] | PARISA [place] [address] | dysfunction (HCC) | | | | [address] [place], | [address] [place], | with symptomatic | | | | [place] [address] | [place] [address] | bradycardia (Primary | | | | [phone] | [phone] | Dx); Symptomatic | | | | | | PVCs; Tachycardia; | | | | | | Coronary artery | | | | | | disease involving | | | | | | tuolumne coronary | | | | | | artery of tuolumne | | | | | | heart [...] encounter Patient Instructions Patient Instructions Vidhi Gillespie, Business Office Assistant - 05/01/2020 3:00 PM PDT1. Incre ase [...] and has received error codes. Referred to [facility] [employer] Stay [facility]cted line. Monthly remote monitoring. Device interrogation due in office at [facility]. Janeen Allison ARNP - 05/01/2020 3:00 PM PDTFormatting of th is note might be different from the original. PATIENT NAME: Moe Sanchez : 1960: AGE: 60 y.o. PRIMARY CARE: Kikr French MD OUTPATIENT FOLLOW UP VISIT Date of Service: 05/01/2020 HISTORY OF PRESENT ILLNESS: Moe Sanchez is a 60 y.o. male with a history of critical coronary artery disea se involving tuolumne coronary artery of tuolumne heart without angina pectoris, essential hyper tension, [...] advised to having his MRI done in [place] at [facility] has a repeat MRI protocol for such situations. Patient also will need echocardiogram for his next appointment to evaluate his ascending aorta Since that time,on 01/11/2020 he was seen by PCP for follow up. On 01/31/2020 patient called and states that he sees a pain specialist in [place] and they would like him to start [...] artery of tuolumne heart without angina pectoris Marijuana use Ascending [...] mg capsule Take 25 mg by mouth. [place]-3 Fatty Acids (SALMON OIL-1000 PO) CAPS, one capsule by mouth daily twice daily ondansetron (ZOFRAN ODT) 4 mg disintegrating tablet Take 4 mg by mouth every 8 hours as needed for Nausea. ondansetron (ZOFRAN) 4 mg tablet Take 4 mg by mouth. ONE TOUCH DELICA LANCETS [facility] Check glucose as needed for hypoglycemia [...] was found Confirmed by SYDNI SINGLETARY MD ([id number]) on 06/06/2019 3:43:10 PM LAB RESULTS reviewed [...] BNP 48 06/02/2019 I reviewed records from [facility] for office visit on 01/01/2020 ich is summarized in the HPI. RESULTS- I reviewed reports from [facility]: No results found. Above data and testing is reviewed this visit; testing below is historical data unless othe rwise specified. ASSESSMENT: 1. Non-critical Coronary artery disease involving tuolumne coronary artery of tuolumne heart [facility] angina pectoris: A.Normal exercise sestamibi [...] cannot completely be ru led out. D. [facility] 12/25/13, shows [...] no limitations of ac tivities of the [place] Heart Association functional class. Heart failure stage [...] performed by Dr Juan Diego Gambino at [facility] on 01/30/2013.Patient had spontaneous PVC'sfr om [...] to go back in 3 days to [place] for an attempt of ablation under general [...] at his follow up visit Vidhi Clemente, Business Office Assistant am acting as a scribe on behalf of, and in the prese nce of PARISA Lomas. - Vidhi Gillespie, Business Office Assistant 05/01/2020 12:50 PM IJaneen ARNP, personally performed the services described in this documentati on, as scribed in my presence and it is both accurate and complete. -PARISA Lomas 05/01/2020 Portions of this chart may have been created with [employer] voice recognition software. Occasi onal wrong-word or sound-alike substitutions may have occurred due to the inherent granegr itations of voice recognition software. Please read [...] | | | | | | [place] [address] | | | | | | [phone] | | | | | | | [...] + + | Coronary artery disease involving tuolumne coronary artery of tuolumne heart without | | angina pectoris | [...]
--- OUTSIDE RECORDS SUMMARY | ~2020-06-15 | XMS | Encounter Summary ---
Demographics + + + | Address | [address] | | | [place] [address] | + + + | Home Phone [...] Team Providers + +------+ + | Care Provider Scribe Name | Role | Phone | + +------+ + | Kirk French MD | PCP | | + +------+ + Encounter Details +--------+ + + + + | Date | Type | Department | Care Team | Description | +--------+ + + + + | 04/07/ | Hospital | [facility] | Pia Akhtar | Spinal stenosis of | | 2016 | Encounter | MED CTR XRAY [address] | [address] | lumbar region | | | | [place] | [address] | | | | | [place] [address] | [place] [address] | | | | | [phone] | [phone] | | | | | | | [...] + + + +---------+ + + | [place]-3 Fatty | CAPS, one capsule by | [...] | | | | | | [place] [address] | | | | | | [phone] | | | | | | | [...]
--- OUTSIDE RECORDS SUMMARY | ~2020-06-15 | XMS | Encounter Summary ---
Demographics + + + | Address | [address] | | | [place] [address] | + + + | Home Phone [...] Providers + +------+ + | Care Forensic Social Worker Name | Role | Phone [...] + | 07/31/ | Telephone | [facility] | Emmanuel Daniel MD | Medication Refill | | 2019 | | GASTROENTEROLOGY | [address] [place] | | | | | [address] [place] | [address] [place], [place] | | | | | [address] [place], [place] | [address] | | | | | [address] | | | | | | [phone] | | | +--------+ + + + [...] | | | | | | [place] [address] | | | | | | [phone] | | | | | | | | +--------+ + + + + documented as of this encounter Visit Diagnoses Not on filedocumented in this encounter"
--- OUTSIDE RECORDS SUMMARY | ~2020-06-15 | XMS | Encounter Summary ---
Demographics + + + | Address | [address] | | | [place] [address] | + + + | Home Phone [...] Team Providers + +------+ + | Care Fine Arts Packer Name | Role | Phone | [...] | Left ankle | Kirk Guidry, | [facility] | | | Required | | pain, | [address] | [address] | | | | | unspecified | [address] | [address] | | | | | chronicity | [address] | [place], | | | | | Low back | [place], [place] | [place] [address] | | | | | pain, | [address] | Phone: | | | | | unspecified | Phone: | [phone] | | | | | back pain | [phone] | Fax: | | | | | laterality, | Fax: | [phone] | | | | | unspecified | [phone] | | | | | | chronicity, [...] + + | 06/11/ | Telephone | [facility] | Kirk French | Referral | | 2020 | | [facility] | [address] | | | | | PRIMARY CARE [address] | [address] | | | | | [address] | [place] [address] | | | | | [place], [place] | [phone] | | | | | [address] | | | | | | [phone] | | | +--------+ + + + [...] Miscellaneous Notes Telephone Encounter - Geri Bear, Client Relation Specialist - 06/11/2020 4:44 PM PDTPlease sig n [...] may be wanting to discuss medication options. [phone] (home) Opal He documented in this enco [...] | | | | | | [place] [address] | | | | | | [phone] | | | | | | | [...]
--- OUTSIDE RECORDS SUMMARY | ~2020-06-15 | XMS | Encounter Summary ---
Demographics + + + | Address | [address] | | | [place] [address] | + + + | Home Phone [...] Team Providers + +------+ + | Care Roadway Technician Name | Role | Phone | + +------+ + PCP | Unavailable | + +------+ + Encounter Details +--------+ + + + + | Date | Type | Department | Care Team | Description | +--------+ + + + + | 09/24/ | [facility] | [facility] | Evan Gandara MD | | | 2005 | Encounter | MED CTR XRAY [address] | [address] [facility] | | | | | [place] | [place] | | | | | [place] [address] | [address] | | | | | [phone] | | | +--------+ + + + [...] [place] | | | | | | [place] [address] | | | | | | [phone] | | | | | | | | +--------+ + + + + documented as of this encounter Visit Diagnoses Not on filedocumented in this encounter"
--- OUTSIDE RECORDS SUMMARY | ~2020-06-15 | XMS | Encounter Summary ---
Demographics + + + | Address | [address] | | | [place] [address] | + + + | Home Phone [...] Providers + +------+ + | Care English Division Chair Name | Role | Phone | + +------+ + | Kirk French MD | PCP | | + +------+ + Encounter Details +--------+ + + + + | Date | Type | Department | Care Team | Description | +--------+ + + + + | 01/05/ | Anesthesia | [facility] | Jarett Barakat | | | 2019 | Event | MED CTR MP INTRA OP | P, MD [address] | | | | | [address] [address] | [address] [place], [place] | | | | | [place], [place] | [address] | | | | | [address] | | | | | | [phone] | | | +--------+ + + + [...] explained and consent obtained. Patient transported to [facility], | | | 4 | | Monitors [...] | 01/05/19950 by | | eral | [id number] catheter system; | Kasie Natarajan RN | [...] EVALUATION Moechica Sanchez 58 y.o. male 1960 [id number] Procedure(s) EGD (N/A Mouth) COLONOSCOPY (N/A Rectum) [...] signed by Jarett Barakat MD 01/05/2019 10:15 [facility] nesthesia Procedure Notes - Jarett Barakat MD - 01/05/2019 8: 44 AM PSTAssociated Order(s): ANE AIRWAY NOTEDocument Blocks and LDA Procedures nesthesia Prepro cedure Evaluation - Jarett Barakat MD - 01/05/2019 1:19 AM PST ANESTHESIA PREANESTHESIA EVALUATION Moe Sanchez 58 y.o. male 1960 [id number] Procedure(s): EGD (N/A Mouth) COLONOSCOPY (N/A Rectum) [...] Preventative health care Coronary artery disease involving lummi coronary artery of lummi heart without angina pectoris Cannabis abuse, daily [...] W | | | | | | [place], | | | | | | [place] [address] | | | | | | [phone] | | | | | | | [...] | | | | | Vomiting, Starting [facility] 01/05/19 at | | AM PST [...]
--- OUTSIDE RECORDS SUMMARY | ~2020-06-15 | XMS | Encounter Summary ---
Demographics + + + | Address | [address] | | | [place] [address] | + + + | Home Phone [...] Team Providers + +------+ + | Care Weaver Apprentice Name | Role | Phone | + +------+ + | Michael Amanda DO | PCP | | + +------+ + Encounter Details +--------+ + + + + | Date | Type | Department | Care Team | Description | +--------+ + + + + | 10/01/ | Hospital | [facility] | Mary Bradshaw | | | 2013 | Encounter | MED CTR JORDEN [address] | Guy Larkin MD | | | | | [address] [place] | [address] | | | | | [place], [place] | [place], [place] | | | | | [address] | [address] | | | | | [phone] | | | +--------+ + + + [...] + + + +---------+ + + | [place]-3 Fatty | CAPS, one capsule by | [...] | | | | | | [place] [address] | | | | | | [phone] | | | | | | | [...] + | MISCELLANEOUS LAB | | | [phone] | + +---------+ + + | MISCELANIOUS LAB | | | [phone] | + +---------+ + + documented in this encounter Visit Diagnoses Not on filedocumented in this encounter"
--- OUTSIDE RECORDS SUMMARY | ~2020-06-15 | XMS | Encounter Summary ---
Demographics + + + | Address | [address] | | | [place] [address] | + + + | Home Phone [...] Team Providers + +------+ + | Care Crm Marketing Manager Name | Role | Phone [...] + + | 07/01/ | Hospital | [facility] | Scotty Galdamez, | DDD (degenerative | | 2018 | Encounter | MED CTR XRAY [address] | PARTS ANALYST [address] | disc disease), | | | | [place] | [address] | lumbar; Chronic | | | | [place] [address] | [place] [address] | left-sided low back | | | | [phone] | [phone] | pain with left-sided | | | [...] + + + +---------+ + + | [place]-3 Fatty | CAPS, one capsule by | [...] | | | | | | [place] [address] | | | | | | [phone] | | | | | | | [...]
--- OUTSIDE RECORDS SUMMARY | ~2020-06-15 | XMS | Encounter Summary ---
Demographics + + + | Address | [address] [place] [address] [address] | | | [place] [address] | + + + | Home Phone [...] [place] | | | | | [address] | | + + + + + Care Team Providers + +------+ + | Care Retail Furniture Sales Name | Role | Phone | + +------+ + | Darion Holden DO | PCP | | + +------+ + Encounter Details +--------+ + + + + | Date | Type | Department | Care Team | Description | +--------+ + + + + | 01/22/ | Transcribe | [email or web address] | Transcribe | | | 2020 | Orders | [facility] [address] | Encounter, Provider, | | | | | [place] [place] for | [address] | | | | | [facility], | [place] [address] | | | | | [address] | | | | | | [place], [place] | | | | | | [address] | | | | | | [phone] | | | +--------+ + + + [...]
--- OUTSIDE RECORDS SUMMARY | ~2020-06-15 | XMS | Encounter Summary ---
Demographics + + + | Address | [address] | | | [place] [address] | + + + | Home Phone [...] Providers + +------+ + | Care Structural Layout Worker Name | Role | Phone [...] | Aneurysmal | [place], | [address] | | | | | dilatation | PARISA Solis | [place], | | | | | ([facility]LY [facility]) | [address] | [place] | | | | | Procedures | [place] | [address] | | | | | ECHO | [place], | Phone: | | | | | Complete | [place] | [phone] | | | | | | [address] | Fax: | | | | | | Phone: | [phone] | | | | | | [phone] | | | | | | | Fax: | | | | | | | [phone] | | +--------+--------+ + + + + [...] | | | | | Aneurysmal | [place], | [address] | | | | | dilatation | PARISA Solis | [place], | | | | | ([facility]) | [address] | [place] | | | | | Procedures | [place] | [address] | | | | | ECHO | [place], | Phone: | | | | | Complete | [place] | [phone] | | | | | | [address] | Fax: | | | | | | Phone: | [phone] | | | | | | [phone] | | | | | | | Fax: | | | | | | | [phone] | | +--------+--------+ + + + + Encounter Details +--------+ + + + + | Date | Type | Department | Care Team | Description | +--------+ + + + + | 11/16/ | Hospital | [facility] | Silvia, | Aneurysmal | | 2017 | Encounter | MED CTR ECHO [address] | Janeen, JUNIOR ARCHITECT [address] | dilatation (HCC) | | | | [place] | [place], | | | | | [place] [address] | [place] [address] | | | | | [phone] | [phone] | | | | | | | [...] + + + +---------+ + + | [place]-3 Fatty | CAPS, one capsule by | [...] | | | | | | [place] [address] | | | | | | [phone] | | | | | | | [...] Patient Name VICTOR HUGO | | | [place] Room Number SARAH Patient | | | [id number] Date of Study 11/16/2017 Number | | | Visit Number [id number] | | | Referring Physician GURJIT TROY Number | | | ELIZABETHANGELIA SOLIS Date | | | of 1960 Bolt Labeler ROMAINE | | | MARISSA TIPTON Age 57 year(s) Interpreting | | | GURJIT TROY | | | Dredge Deckhand SYDNI CAGLE, | | | | | | Gender Male Nurse | | | Stress Loss Prevention Manager Procedure Type of | | | Study [...] | | | EF | | | Ziqybcozh90% Left Ventricle Diastolic Dimension: 5.12 cm | [...] Volume: 46.33 ml | | | EF Gxdgadupl50% | | | | | | Left [...] BARRY Room Number SARAH | | Patient [id number] Date of Study 11/16/2017 Number Visit Number | | [id number] Referring Physician GURJIT TROY | | Number NORMA SOLIS Date of | | 1960 Bolt Labeler ROMAINE TIPTON RDCS Age 57 year(s) | | Interpreting GURJIT TROY Dredge Deckhand | | SYDNI CAGLE MD | | [...] LA Volume: 46.33 ml | | EF Ewowhbqls40% Left Ventricle Diastolic Dimension: 5.12 cm Systolic [...] LA Volume: 46.33 ml | | EF Qgxtolgpm04% | | | | Left Ventricle | [...]
--- OUTSIDE RECORDS SUMMARY | ~2020-06-15 | XMS | Encounter Summary ---
Demographics + + + | Address | [address] | | | [place] [address] | + + + | Home Phone [...] + +------+ + | Care Career Services Director Name | Role | Phone [...] + + | 03/07/ | Telephone | [facility] | Daljit Singletary, | Results ([facility]) | | 2020 | | CARDIOLOGY [address] | MD [address] [place] | | | | | [place], | [place], | | | | | [place] [address] | [place] [address] | | | | | [phone] | [phone] | | | | | | | [...] | | | | | | [place] [address] | | | | | | [phone] | | | | | | | | +--------+ + + + + documented as of this encounter Visit Diagnoses Not on filedocumented in this encounter"
--- OUTSIDE RECORDS SUMMARY | ~2020-06-15 | XMS | Encounter Summary ---
Demographics + + + | Address | [address] | | | [place] [address] | + + + | Home Phone [...] Providers + +------+ + | Care Electric Stove Mechanic Name | Role | Phone | [...] unspecified | [address] | [address] | | | | | type | [address] | [place], | | | | | Procedures | [place], | [place] | | | | | [place] Nuclear | [place] [address] | [address] | | | | | Stress Test | Phone: | Phone: | | | | | (Vasodilator | [phone] | [phone] | | | | | ) CHG | Fax: | Fax: | | | | | MYOCARDIAL | [phone] | [phone] | | | | | SPECT | [...] + + | 07/21/ | Hospital | [facility] | Daljit Singletary, | | | 2018 | Encounter | MED CTR NUCLEAR | MD [address] | | | | | MEDICINE [address] | [place], | | | | | [place], | [place] [address] | | | | | [place] [address] | [phone] | | | | | [phone] | | | +--------+ + + + [...] + + + +---------+ + + | [place]-3 Fatty | CAPS, one capsule by | [...] | | | | | | [place] [address] | | | | | | [phone] | | | | | | | [...] | | | | | | Starting [facility] 07/21/18 at 1224, For | | | | | | | 1 dose, Nuclear Medicine | | | | | | + +--------+ + +------+------+ +---+---+ | | | +---+---+ documented in this encounter"
--- OUTSIDE RECORDS SUMMARY | ~2020-06-15 | XMS | Encounter Summary ---
Demographics + + + | Address | [address] | | | [place] [address] | + + + | Home Phone [...] Team Providers + +------+ + | Care Pole Classifier Name | Role | Phone | + [...] [address] | | | | | [address] | [place] [address] | | | | | [phone] | [phone] | | | | | | | [...] | | | | | | [place] [address] | | | | | | [phone] | | | | | | | [...]
--- OUTSIDE RECORDS SUMMARY | ~2020-06-15 | XMS | Encounter Summary ---
Demographics + + + | Address | [address] | | | [place] [address] | + + + | Home Phone [...] Providers + +------+ + | Care Roustabout Crew Pusher Name | Role | Phone | [...] | | CARDIOLOGY [address] | [address] [place] | | | | | [place], | [place], | | | | | [place] [address] | [place] [address] | | | | | [phone] | [phone] | | | | | | | [...] | | | | | | [place] [address] | | | | | | [phone] | | | | | | | [...] ST. | [address] | [place] | [phone] | | [facility] | | [address] | | | - LABORATORY | | | | + + + + + | [facility] | [address] | [place], [place] | | | [facility] | | [address] | | | - [...] | | | | | | [facility] | | | | | | [...] [address] | | | | | [facility] | | | | | - LABORATORY | | | | + +---------+ + + documented in this encounter Visit Diagnoses Not on filedocumented in this encounter"
--- OUTSIDE RECORDS SUMMARY | ~2020-06-15 | XMS | Encounter Summary ---
Demographics + + + | Address | [address] | | | [place] [address] | + + + | Home Phone [...] | Organization | [facility] | | | [...] Team Providers + +------+ + | Care Infection Control Specialist Name | Role | Phone [...] | 01/24/ | Telephone | [facility] | Daljit Singletary, | Other | | 2018 | | CARDIOLOGY [address] | [address] [place] | | | | | [place], | [place], | | | | | [place] [address] | [place] [address] | | | | | [phone] | | | | | | | [...] PSTPatient called and left a message on voiceTi Knightil stating he has chest pain daily, with [...] | | | | | | [place] [address] | | | | | | [phone] | | | | | | | | +--------+ + + + + documented as of this encounter Visit Diagnoses Not on filedocumented in this encounter"
--- OUTSIDE RECORDS SUMMARY | ~2020-06-15 | XMS | Encounter Summary ---
Demographics + + + | Address | [address] | | | [place] [address] | + + + | Home Phone [...] Providers + +------+ + | Care Windows Software Developer Name | Role | Phone | + +------+ + PCP | Unavailable | + +------+ + Encounter Details +--------+ + + + + | Date | Type | Department | Care Team | Description | +--------+ + + + + | 06/17/ | Hospital | [facility] | | | | 2007 | Encounter | MED CTR EMERGENCY | | | | | | [address] | | | | | | [place] | | | | | | [address] | | | | | | [phone] | | | +--------+ + + + [...] | | | | | | [place] [address] | | | | | | [phone] | | | | | | | | +--------+ + + + + documented as of this encounter Visit Diagnoses Not on filedocumented in this encounter"
--- OUTSIDE RECORDS SUMMARY | ~2020-06-15 | XMS | Encounter Summary ---
Demographics + + + | Address | [address] | | | [place] [address] | + + + | Home Phone [...] Team Providers + +------+ + | Care Straw Hat Plunger Operator Name | Role | Phone | [...] + + | 08/19/ | Telephone | [facility] | [place], | Other (patient | | 2016 | | CARDIOLOGY [address] | PARISA [place] [address] | having issues with | | | | [place], | [place], | high blood pressure) | | | | [place] [address] | [place] [address] | | | | | [phone] | [phone] | | | | | | | [...] that he returned danyell e Wednesday from [facility]. He reports that his blood pressure has [...] | | | | | | [place] [address] | | | | | | [phone] | | | | | | | | +--------+ + + + + documented as of this encounter Visit Diagnoses Not on filedocumented in this encounter"
--- OUTSIDE RECORDS SUMMARY | ~2020-06-15 | XMS | Encounter Summary ---
Demographics + + + | Address | [address] | | | [place] [address] | + + + | Home Phone [...] Providers + +------+ + | Care Inventory Transcriber Name | Role | Phone | [...] + + | 02/01/ | Telephone | [facility] [place] | [place], | Other (unable to | | 2013 | | CARDIOLOGY [address] | PARISA Vernon [address] | take the isosorbide) | | | | [place], | [place], | | | | | [place] [address] | [place] [address] | | | | | [phone] | [phone] | | | | | | | [...] | | | | | | [place] [address] | | | | | | [phone] | | | | | | | | +--------+ + + + + documented as of this encounter Visit Diagnoses + + | Diagnosis | + + | Coronary artery disease - Primary Coronary atherosclerosis of unspecified type of | | vessel, [place] or graft | + + | Hypertension Unspecified essential hypertension | + + | Hyperlipidemia Other and unspecified hyperlipidemia | + + documented in this encounter"
--- OUTSIDE RECORDS SUMMARY | ~2020-06-15 | XMS | Encounter Summary ---
Demographics + + + | Address | [address] | | | [place] [address] | + + + | Home Phone [...] Providers + +------+ + | Care Environmental Services Specialist Name | Role | Phone [...] + | 06/23/ | Office | [facility] | [place], | Ascending thoracic | | 2016 | Visit | CARDIOLOGY [address] | PARISA [place] [address] | aortic aneurysm | | | | [place], | [place], | ([facility]) (Primary Dx); | | | | [place] [address] | [place] [address] | Coronary artery | | | | [phone] | [phone] | disease involving | | | | | | [place] coronary | | | | | | artery of [place] | | | | | | heart [...] of non-critical coronary artery d isease involving [place] coronary artery of [place] heart without angina pectoris, essential h ypertension, [...] cardiac complaints. He is getting ready to [employer] for a [place] trip [place] [...] Preventative health care Coronary artery disease involving [place] coronary artery of [place] heart without angina pectoris Cannabis abuse, daily [...] by mouth every evening 90 tablet 3 [facility] [place] [place] [...] 3rd dose, call 911 100 tablet 3 [place]-3 Fatty Acids (SALMON OIL-1000 PO) CAPS, one [...] ASSESSMENT: 1. Non-critical Coronary artery disease involving [place] coronary artery of [place] heart wi thout angina pectoris: A. Normal [...] pain. He is in class I-II of [place] [facility] [employer] n functional class. There are [...] to go back in 3 days to [place] for an attempt of ablation under general [...] this chart may have been created with [employer] voice recognition software. Occasi onal wrong-word or [...] | | | | | | [place] [address] | | | | | | [phone] | | | | | | | [...] the | | | | PDT | [place] coronary | results section. | | | | | artery of [place] | | | | | | heart [...] MD | | | | | | ([id number]) on 06/23/2016 | | | | | [...] + + | Coronary artery disease involving [place] coronary artery of [place] heart without | | angina pectoris | [...]
--- OUTSIDE RECORDS SUMMARY | ~2020-06-15 | XMS | Encounter Summary ---
Demographics + + + | Address | [address] | | | [place] [address] | + + + | Home Phone [...] +------+ + | Care Payroll And Benefits Coordinator Name | Role | Phone | + +------+ + PCP | Unavailable | + +------+ + Encounter Details +--------+ + + + + | Date | Type | Department | Care Team | Description | +--------+ + + + + | 09/29/ | Hospital | [facility] | | | | 1995 | Encounter | MED CTR EMERGENCY | | | | | | [address] | | | | | | [place] | | | | | | [address] | | | | | | [phone] | | | +--------+ + + + [...] | | | | | | [place] [address] | | | | | | [phone] | | | | | | | | +--------+ + + + + documented as of this encounter Visit Diagnoses Not on filedocumented in this encounter"
--- OUTSIDE RECORDS SUMMARY | ~2020-06-15 | XMS | Encounter Summary ---
Demographics + + + | Address | [address] | | | [place] [address] | + + + | Home Phone [...] Team Providers + +------+ + | Care Noxious Weeds And Pest Inspector Name | Role | Phone | [...] | | | | [place] | | [address] Phone: | | | | | CYSTO/URETER | | [phone] | | | | | O | | Fax: | | | | | W/LITHOTRIPS | | [phone] | | | | | Y &INDWELL [...] + | 04/13/ | Surgery | [facility] | Matthew Uriarte | Cystoscopy, Left | | 2018 | | MED CTR OR INTRA OP | Dahl, MD [address] | ureteroscopy with | | | | [address] | [address] [place] [address] | laser lithotripsy, | | | | [place] | [address] | Left ureteral stent | | | | [address] | | placement | | | | [phone] | | | +--------+---------+ + + + [...] Care Everywhere.Kidney Stones, Treating: Ureteroscopic Stone Removal (Welsh)Stents, Ureteral (Welsh)documented in this encounter Medications at Time of [...] + + + +---------+ + + | [place]-3 Fatty | CAPS, one capsule by | [...] | | | | | | | ruby coronary | | | | | | | artery of ruby | | | | | | | [...] signed by: Matthew Uriarte MD, 04/13/2019 8:09 [facility] Jaron Galaviz MD - 04/07/2019 9:45 [...] CV LHC; Surgeon: Daljit Singletary MD; Location: [facility] CV LAB CARDIAC CATHERIZATION N/A 01/25/2019 Procedure: CV Cor Angio; Surgeon: Daljit Singletary MD; Location: [facility] CV LAB COLONOSCOPY N/A 12/24/2017 Procedure: COLONOSCOPY; Surgeon: Emmanuel Daniel MD; Location: [facility] MEDICAL PROCEDURE UNIT COLONOSCOPY N/A 01/05/2019 Procedure: COLONOSCOPY; Surgeon: Emmanuel Daniel MD; Location: [facility] MEDICAL PROCEDURE UNIT EGD 12/24/2017 HARDWARE [...] Procedure: EGD; Surgeon: Emmanuel Daniel MD; Location: [facility] MEDICAL PROCEDURE UNIT UPPER GASTROINTESTINAL ENDOSCOPY N/A 01/05/2019 Procedure: EGD; Surgeon: Emmanuel Daniel MD; Location: [facility] MEDICAL PROCEDURE UNIT VASECTOMY Family History: [...] EVERY DAY, Disp: 90 tablet, Rfl: 3 [facility] Natural Products (OSTEO BI-FLEX/5-LOXIN ADVANCED PO), Take [...] 911, Disp: 100 ta blet, Rfl: 3 [place]-3 Fatty Acids (SALMON OIL-1000 PO), CAPS, one [...] have not thoroughly proofread this note, and agent contract clerk errors are very likely to occur. CC: Kirk French MD documented in this encounter Miscellaneous Notes Op Note - Matthew Uriarte MD - 04/13/2019 1:03 PM PDTOperative Note Pt. Name/Age/: Moe Sanchez 59 y.o. 1960 Med. Record Number: [id number] Date of admission: 04/13/2019 Date of Operation/Procedure: 04/13/2019 Preoperative Diagnosis: Kidney stone Postoperative Diagnosis: same Surgeon: Matthew Uriarte MD Assembler Filters(s): none Anesthesia Provider(s): Anesthesiologist: Jay Benjamin MD [...] leave strings on the stent. A 6 Hungarian variable length stent was then placed over [...] Electronically Signed by: Matthew Uriarte, 04/13/2019 13:04 [facility] documented in this encounter Plan of [...] | | | | | | [place], | | | | | | [place] [address] | | | | | | [phone] | | | | | | | [...] [facility] | | | | | | at:[phone]. | | | | + + + [...] [address], | REFERENCE LAB | | [place], [place] [address] Clerical Assistant: Yeny Rios MD, Phone: | ARSH CASTANON | | [phone] | | + + + + + + + + | Performing | Address | City/State/Zipcode | Phone Number | | Organization | | | | + + + + + | REFERENCE LAB | [address] | [place], [place] | [phone] | | [facility] | [facility] | [address] | | + + + + + [...] [address] | [place] | [phone] | | [facility] | | [address] | | | - LABORATORY | | [...] [address] | [place] | [phone] | | [facility] | | [address] | | | - LABORATORY | | [...] + | [address] | [address] | [place] | [phone] | | [facility] | | [address] | | | - LABORATORY | | [...] | [facility] | [address] | [place] | [phone] | | [facility] | | [address] | | | - LABORATORY | | [...] mL/min/1.73m2 | [facility] | | | SALVADOREAN | RATE,ESTIMATED | | MEDICAL | | | | mL/min/1.66o5Xfnv than | | CENTER - | | [...] [address] | [place] | [phone] | | [facility] | | [address] | | | - LABORATORY | | [...] | | | dose on [facility] 04/13/19 at 1400, | | | Start [...] HOUR PRN, | | | Pain, Starting [facility] 04/13/19 at | | | 1046, If [...] | | | | | | | nnyqjn-btg-pwgwr use of at least | | | [...]
--- OUTSIDE RECORDS SUMMARY | ~2020-06-15 | XMS | Encounter Summary ---
Demographics + + + | Address | [address] | | | [place] [address] | + + + | Home Phone [...] Team Providers + +------+ + | Care Splitting Machine Tender Name | Role | Phone | + +------+ + | Kirk French MD | PCP | | + +------+ + Encounter Details +--------+ + + + + | Date | Type | Department | Care Team | Description | +--------+ + + + + | 01/05/ | Anesthesia | [facility] | Jarett Barakat | | | 2019 | Event | MED CTR MP INTRA OP | P, MD [address] | | | | | [address] | [address] [place], [place] | | | | | [place], [place] | [address] | | | | | [address] | | | | | | [phone] | | | +--------+ + + + [...] Patient transported to [facility], | | | 4 | | Monitors [...] | 01/05/19950 by | | eral | uafi-gzk-fvfbdv catheter system; | Kasie Natarajan RN | [...] EVALUATION Moechica Sanchez 58 y.o. male 1960 [id number] Procedure(s) EGD (N/A Mouth) COLONOSCOPY (N/A Rectum) [...] signed by Jarett Barakat MD 01/05/2019 10:15 [facility] nesthesia Procedure Notes - Jarett Barakat MD - 01/05/2019 8: 44 AM PSTAssociated Order(s): ANE AIRWAY NOTEDocument Blocks and LDA Procedures nesthesia Prepro cedure Evaluation - Jarett Barakat MD - 01/05/2019 1:19 AM PST ANESTHESIA PREANESTHESIA EVALUATION Moe Sanchez 58 y.o. male 1960 [id number] Procedure(s): EGD (N/A Mouth) COLONOSCOPY (N/A Rectum) [...] health care Coronary artery disease involving [facility] coronary artery of [facility] heart without angina pectoris Cannabis abuse, [...] W | | | | | | [place], | | | | | | [place] [address] | | | | | | [phone] | | | | | | | [...] | | | | | Vomiting, Starting [facility] 01/05/19 at | | AM PST | [...]
--- OUTSIDE RECORDS SUMMARY | ~2020-06-15 | XMS | Encounter Summary ---
Demographics + + + | Address | [address] | | | [place] [address] | + + + | Home Phone [...] Providers + +------+ + | Care Automatic Die Cutting Machine Operator Name | Role | [...] + + | 06/05/ | Telephone | [facility] | Kirk French | Other | | 2020 | | [facility] | MD [address] | | | | | [facility] [address] | [address] | | | | | [address] | [place] [address] | | | | | [place], [place] | [phone] | | | | | [address] | | | | | | [phone] | | | +--------+ + + + [...] Miscellaneous Notes Telephone Encounter - Geri Bear, Rehabilitation Director - 06/06/2020 9:18 AM PDTCan this b [...] that referred him there. Call back at [phone].. If this is a symptom based call, was patient offered triage? Not Applicable If this is a symptom based call and you were unable to immediately transfer the call to a lorraine bellamy library monitor was caller made aware that if at [...] [place], | | | | | | [place] [address] | | | | | | [phone] | | | | | | | | +--------+ + + + + documented as of this encounter Visit Diagnoses Not on filedocumented in this encounter"
--- OUTSIDE RECORDS SUMMARY | ~2020-06-15 | XMS | Encounter Summary ---
Demographics + + + | Address | [address] | | | [place] [address] | + + + | Home Phone [...] Team Providers + +------+ + | Care Bootmaker Name | Role | Phone | + [...] | 10/23/ | Refill | [facility] | Kennethshaistatesha Shaistakenneth, | Medication Refill | | 2013 | | CARDIOLOGY [address] | [address] | | | | | [place], | [place], | | | | | [place] [address] | [place] [address] | | | | | [phone] | [phone] | | | | | | | [...] | | | | | | [place] [address] | | | | | | [phone] | | | | | | | | +--------+ + + + + documented as of this encounter Visit Diagnoses Not on filedocumented in this encounter"
--- OUTSIDE RECORDS SUMMARY | ~2020-06-15 | XMS | Encounter Summary ---
Demographics + + + | Address | [address] | | | [place] [address] | + + + | Home Phone [...] Providers + +------+ + | Care Magazine Worker Name | Role | Phone | [...] | | GASTROENTEROLOGY | [address], [place] | | | | | [address] [place] | [address] [place], [place] | | | | | [address] [place], [place] | [address] | | | | | [address] | | | | | | [phone] | | | +--------+ + + + [...] he would like to be transferred to [facility]. Routing to clinical staff. Provider/Nurse: Dr. Daniel Call back number: [phone] documented in this encou nter Plan of [...] | | | | | | [place] [address] | | | | | | [phone] | | | | | | | | +--------+ + + + + documented as of this encounter Visit Diagnoses Not on filedocumented in this encounter
--- OUTSIDE RECORDS SUMMARY | ~2020-06-15 | XMS | Encounter Summary ---
Demographics + + + | Address | [address] | | | [place] [address] | + + + | Home Phone [...] Team Providers + +------+ + | Care Biologics Specialist Name | Role | Phone | + +------+ + | Kirk French MD | PCP | | + +------+ + Encounter Details +--------+ + + + + | Date | Type | Department | Care Team | Description | +--------+ + + + + | [facility] | Kirk French | Aneurysm (HCC) | | 2017 | Encounter | MED CTR ULTRASOUND | D, MD [address] | | | | | [address] [place] | [address] | | | | | [place], [place] | [place] [address] | | | | | [address] | [phone] | | | | | [phone] | | | | | | | [...] + + + +---------+ + + | [place]-3 Fatty | CAPS, one capsule by | [...] | | | | | | [place] [address] | | | | | | [phone] | | | | | | | | +--------+ + + + + documented as of this encounter Visit Diagnoses + + | Diagnosis | + + | Aneurysm (HCC) Aneurysm of unspecified site | + + documented in this encounter"
--- OUTSIDE RECORDS SUMMARY | ~2020-06-15 | XMS | Encounter Summary ---
Demographics + + + | Address | [address] [place] [address] [address] | | | [place] [address] | + + + | Home Phone [...] [place] | | | | | [address] | | + + + + + Care Team Providers + +------+ + | Care Adjunct Political Science Instructor Name | Role | Phone [...] Center at [facility] [address] | MD [address] | | | | | [address] | [place], [place] | | | | | for Health and | [address] | | | | | [facility] | [phone] | | | | | [place], [place] | | | | | | [address] | | | | | | [phone] | | | +--------+ + + + [...]
--- OUTSIDE RECORDS SUMMARY | ~2020-06-15 | XMS | Encounter Summary ---
Demographics + + + | Address | [address] | | | [place] [address] | + + + | Home Phone [...] Providers + +------+ + | Care Wood Chopper Name | Role | Phone | + [...] + + | 06/02/ | Telephone | [facility] | AnshujohnsoncherelleRashadotto, | Other (symptoms) | | 2019 | | CARDIOLOGY [address] | MD [address] | | | | | [place], | [place], | | | | | [place] [address] | [place] [address] | | | | | [phone] | [phone] | | | | | | | [...] RN - 06/02/2019 5:08 PM PDTPatient [facility] Called patient and spoke with him about his symptoms. He is having baljit st pain and shortness of breath, dizziness and lightheadedness where he is almost passes out . "When heart is fluttering it knocks me over". Instructed patient to go to the ER immediate ly. He refuses because he lives in [place] and doesn't want to go to [facility]. He sta marcos he has no one [...] | | | | | | [place] [address] | | | | | | [phone] | | | | | | | | +--------+ + + + + documented as of this encounter Visit Diagnoses Not on filedocumented in this encounter
--- OUTSIDE RECORDS SUMMARY | ~2020-06-15 | XMS | Encounter Summary ---
Demographics + + + | Address | [address] | | | [place] [address] | + + + | Home Phone [...] Providers + +------+ + | Care Staffing Director Name | Role | Phone | + +------+ + | Kirk French MD | PCP | | + +------+ + Encounter Details +--------+---------+ + + + | Date | Type | Department | Care Team | Description | +--------+---------+ + + + | 12/24/ | Surgery | [facility] | Emmanuel Daniel MD | EGD | | 2018 | | MED CTR MP INTRA OP | [address], [place] | | | | | [address] | [address] [place], [place] | | | | | [place], [place] | [address] | | | | | [address] | | | | | | [phone] | | | +--------+---------+ + + + [...] any noct urnal symptoms. He was in [facility] 2 years ago and required hospitalization [...] severe diarrhea probable infective occurring while visiting [facility] Diarrhea etiology and significance to [...] Endoscopy Patient: Moe Sanchez : 1960 Acct: [id number] Exam Date: Sunday, December 24, 2017 Doctor: [...] If unable to reach your physician, call [facility] Emergency Department at [address] Your [...] Nurse Signature Patient Signature Escort Signature Date Emamnuel Daniel MD 12/24/2017 2:01:38 PM This report has been signed electronically.Electronically signed by Emmanuel Daniel MD at 2:02 PM PSTD-C Instructions Provation - Emmanuel Daniel MD - 12/24/2017 1:17 PM P STDischarge Instructions for Colonoscopy Exams Patient: Moe Sanchez : 1960 Acct: [id number] Exam Date: Sunday, December 24, 2017 Doctor: [...] If unable to reach your physician, call [facility] Emergency Department at [address] Your [...] | | | | | [place], | | | | | | [place] [address] | | | | | | [phone] | | | | | | | [...] + | Performed at: 01 - [address] [address], | REFERENCE LAB | | [place], [place] [id number] Diplomatic Officer: William Andrew MD, Phone: | [facility] | | [phone] | | + + + + + + + + | Performing | Address | City/State/Zipcode | Phone Number | | Organization | | | | + + + + + | REFERENCE LAB | [address] | [place], [place] | [phone] | | [facility] | [address] | [address] | | + + + + + [...] [address] | [place] | [phone] | | [facility] | | [address] | | | - LABORATORY | | [...] [address] | [place] | [phone] | | [facility] | | [address] | | | - LABORATORY | | [...] [address] | [place] | [phone] | | [facility] | | [address] | | | - LABORATORY | | [...] + + | Performed at: 01 - [address] [address], | REFERENCE LAB | | [place], [place] [id number] Diplomatic Officer: William Andrew MD, Phone: | [facility] | | [phone] | | + + + + + + + + | Performing | Address | City/State/Zipcode | Phone Number | | Organization | | | | + + + + + | REFERENCE LAB | [address] | [place], [place] | [phone] | | [facility] | Drive [facility] | [address] | | + + + + + [...] ST. | [address] | [place] | [phone] | | [facility] | | [address] | | | [...] [address] | [place] | [phone] | | [facility] | | [address] | | | - LABORATORY | | [...] [address] | [place] | [phone] | | [facility] | | [address] | | | - LABORATORY | | [...] [address] | [place] | [phone] | | [facility] | | [address] | | | - LABORATORY | | [...] r pylori Ag | | | [facility] | | | | | | [...] ST. | [address] | [place] | [phone] | | [facility] | | [address] | | | - LABORATORY | | | | + + + + + EGD (12/24/2017 1:19 PM PST) + + | Specimen | + + | | + + + + -+ | Narrative | Performed At | + + -+ | | [facility] | | GastroenterologyPatient Name: Moe SanchezProcedure Date: 12/24/2017 | [facility] | | 1:19 PMMRN: [id number] #: [id number] of : | | | 9Admit Type: AmbulatoryAge: 57Room: [facility] 01Gender: MaleNote | | | Status: FinalizedAttending MD: Emmanuel Daniel , [facility] ANNISTONrocedure: | | | Upper GI endoscopyIndications: Diarrhea, Weight | | | lossProviders: Emmanuel Daniel MD, Maria Isabel Morris RN, | | | Kim Hicks, Plastering Supervisor, Snook | | | Sapna Barakat MD (Anesthesia [...] the anesthesiologist and | | | the industrial engineering technician in the endoscopy suite. Mental [...] PMScope Out: 1:31:13 PM | | | [facility], [address] [facility] | | | [place] [address] | | | - Discharge patient to [...] |Scope Out: 1:31:13 PM | | | [facility], [address] [place], [place] | | | [address] | | + + -+ + +---------+ [...] 12/24/2017 | [facility] | | 1:17 PMMRN: [id number] #: [id number] of : | | | 9Admit Type: AmbulatoryAge: 57Room: [facility] 01Gender: MaleNote | | | Status: FinalizedAttending MD: Emmanuel Daniel , MDProcedure: | | | ColonoscopyIndications: Clinically significant diarrhea of | | | unexplained originProviders: Emmanuel Daniel MD, Maria Isabel | | | Arturo, RN, Kim Hicks, Plastering Supervisor, | | | Jarett Barakat MD [...] | | | the anesthesiologist and the industrial engineering technician in the endoscopy suite. | [...] 1:48:57 PM [facility] | | | [facility], [address] [place] [address] | | | [phone] | | | - Await pathology results. [...] |Scope Out: 1:48:57 PM | | | [facility], [address] [place] | | | [address] | | + + -+ + +---------+ [...] colonic mucosa with focal adenomatous change. CLR:[facility]:C2NR | | | GROSS DESCRIPTION: Received in [...] | cm, submitted, all in (D1). ka:CLR:[facility] ADDITIONAL NOTES: | | | Immunohistochemical studies were performed on this case with the | | | appropriate positive controls that react as expected. This test was | | | developed and its performance characteristics determined by [facility] | | | [place]. It has not been cleared or approved by the U.S. Food | | | and Drug Administration. The FDA has determined that such clearance | | | or approval is not necessary. This test is used for clinical | | | purposes. It should not be regarded as investigational or for | | | research. [facility] is certified under the Clinical | | | Laboratory Improvement Amendments of 1988 (CLIA) as qualified to | | | perform high complexity clinical laboratory testing. This assay | | | has not been validated for specimens that have been decalcified. | | | PERFORMING LABORATORY: Tissue processing and slide preparation were | | | performed by [facility], [address], [facility] | | | [place] [address] (Sea Air Land Officer: Evan Frausto M.D. CLIA#: | | | [id number]). Professional interpretation was performed by [facility] | | | [facility], [address], [place] [address] | | | (Sea Air Land Officer: Evan Frausto M.D.; CLIA#: [id number]). | | | Diagnostician: Rafael Bales MD [...]
--- OUTSIDE RECORDS SUMMARY | ~2020-06-15 | XMS | Encounter Summary ---
Demographics + + + | Address | [address] | | | [place] [address] | + + + | Home Phone [...] Providers + +------+ + | Care Travel Agent Name | Role | Phone | [...] + + | 03/22/ | Refill | [facility] | Kirk French | Medication Refill | | 2019 | | [facility] | MD [address] | | | | | [facility] | [address] | | | | | [address] | [place] [address] | | | | | [place], [place] | [phone] | | | | | [address] | | | | | | [phone] | | | +--------+--------+ + + + [...] | | | | | | [place] [address] | | | | | | [phone] | | | | | | | | +--------+ + + + + documented as of this encounter Visit Diagnoses Not on filedocumented in this encounter"
--- OUTSIDE RECORDS SUMMARY | ~2020-06-15 | XMS | Encounter Summary ---
Demographics + + + | Address | [address] | | | [place] [address] | + + + | Home Phone [...] + +------+ + | Care Emergency Department Coordinator Name | Role | Phone | [...] [address] | | | | | [place], | [place], | | | | | [place] [address] | [place] [address] | | | | | [phone] | [phone] | | | | | | | [...] | | | | | | [place] [address] | | | | | | [phone] | | | | | | | | +--------+ + + + + documented as of this encounter Visit Diagnoses Not on filedocumented in this encounter"
--- OUTSIDE RECORDS SUMMARY | ~2020-06-15 | XMS | Encounter Summary ---
Demographics + + + | Address | [address] | | | [place] [address] | + + + | Home Phone [...] Providers + +------+ + | Care Sign Builder Name | Role | Phone | [...] unspecified | [address] | [address] | | | | | type | [address] | [place], | | | | | Procedures | [place], | [place] | | | | | [place] | [place] [address] | [address] | | | | | Stress Test | Phone: | Phone: | | | | | (Vasodilator | [phone] | [phone] | | | | | ) CHG | Fax: | Fax: | | | | | MYOCARDIAL | [phone] | [phone] | | | | | SPECT | [...] | type | [address] | [address] | | | | | Procedures | [place] | [place], | | | | | [place] | [place] | [place] [address] | | | | | | [address] | Phone: | | | | | | Phone: | [phone] | | | | | | [phone] | Fax: | | | | | | Fax: | [phone] | | | | | | [phone] | | +--------+ + + + + + Encounter Details +--------+---------+ + + + | Date | Type | Department | Care Team | Description | +--------+---------+ + + + | 06/27/ | Office | [facility] | Sydni Singletary, | Pacemaker | | 2018 | Visit | CARDIOLOGY [address] | [address] [facility] | reprogramming/check | | | | [place], | 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 He [facility]. He was last seen 01/05/2018 at which time patient was to continue with present plan and medi cations. Since that time, patient has been seen at [place] emergency department on 018 for chest pain [...] Preventative health care Coronary artery disease involving hoopa coronary artery of hoopa heart without angina pectoris Cannabis abuse, daily [...] by mouth every evening 90 tablet 0 [facility] [...] 3RD DOSE, CALL 911 100 tablet 3 [place]-3 Fatty Acids (SALMON OIL-1000 PO) CAPS, one [...] RESULTS reviewed during visit today primarily from [facility]: LIPID Lab Results Component Value Date [...] to go back in 3 days to [place] for an attempt of ablation under general [...] PVCs. 2. Non-critical Coronary artery disease involving hoopa coronary artery of hoopa heart [facility] angina pectoris: A. Normal exercise [...] He is in a class I of [place] [employer] functiona l class. There is [...] reviewed and edited this note. Allyson Curtis Basket Hand Braider 06/27/2018 Sydni Clemente MD, personally performed the services described in this documentation, as scribed in my presence and it is both accurate and complete. Allyson Curtis, Med Ass t 06/27/2018 14:15 Electronically signed by: Sydni Singletary MD [facility] 06/27/2018 Portions of this chart may have been created with [employer] voice recognition software. Occasi onal wrong-word or [...] | | | | | | [place] [address] | | | | | | [phone] | | | | | | | [...] 13:12 Wireless even study from | [facility] | | 07/21 until 08/22/2018. [...] SYDNI | | | | | | ([id number]) on 06/27/2018 | | | | | [...]
--- OUTSIDE RECORDS SUMMARY | ~2020-06-15 | XMS | Encounter Summary ---
Demographics + + + | Address | [address] | | | [place] [address] | + + + | Home Phone [...] Providers + +------+ + | Care Plate Grainer Apprentice Name | Role | Phone | + +------+ + PCP | Unavailable | + +------+ + Encounter Details +--------+ + + + + | Date | Type | Department | Care Team | Description | +--------+ + + + + | 10/26/ | Hospital | [facility] | | | | 1994 | Encounter | MED CTR EMERGENCY | | | | | | [address] | | | | | | [place] | | | | | | [address] | | | | | | [phone] | | | +--------+ + + + [...] | | | | | | [place] [address] | | | | | | [phone] | | | | | | | | +--------+ + + + + documented as of this encounter Visit Diagnoses Not on filedocumented in this encounter"
--- OUTSIDE RECORDS SUMMARY | ~2020-06-15 | XMS | Encounter Summary ---
Demographics + + + | Address | [address] | | | [place] [address] | + + + | Home Phone [...] Providers + +------+ + | Care Spinner Continuous Name | Role | Phone | + +------+ + PCP | Unavailable | + +------+ + Encounter Details +--------+ + + + + | Date | Type | Department | Care Team | Description | +--------+ + + + + | 08/26/ | Hospital | [facility] | | | | 2009 | Encounter | MED CTR LABORATORY | | | | | | [address] | | | | | | [place] | | | | | | [address] | | | | | | [phone] | | | +--------+ + + + [...] | | | | | | [place] [address] | | | | | | [phone] | | | | | | | | +--------+ + + + + documented as of this encounter Visit Diagnoses Not on filedocumented in this encounter"
--- OUTSIDE RECORDS SUMMARY | ~2020-06-15 | XMS | Encounter Summary ---
Demographics + + + | Address | [address] | | | [place] [address] | + + + | Home Phone [...] | | | | [place] | [phone] | | | | | [address] | | | | | | [phone] | | | +--------+ + + + [...] | | | | | | [place] [address] | | | | | | [phone] | | | | | | | [...]
--- OUTSIDE RECORDS SUMMARY | ~2020-06-15 | XMS | Encounter Summary ---
Demographics + + + | Address | [address] [place] [address] [address] | | | [place] [address] | + + + | Home Phone [...] [place] | | | | | [address] | | + + + + + Care Team Providers + +------+ + | Care Warp Tier Name | Role | Phone | [...] as of this encounter Progress Notes Interface, Physician Liaison In - 07/19/2006 3:05 AM PDTCLINIC DATE: 06/13/2002 [facility] REFERRING PHYSICIAN: Eugene Vera D.O. [address] [place] [address] Mr. Sanchez is a new patient. He [...] proceed. Martell Allen M.D. ELIZABETH / KATTY [id number] / [id number] / [id number] / [id number] cc: Eugene Vera D.O. [address] [place] [id number] signed by Interface, Physician Liaison In at 07/19/2006 3:0 5 AM PDTdocumented in this encounter Plan of Treatment Not on filedocumented as of this encounter Visit Diagnoses Not on filedocumented in this encounter
--- OUTSIDE RECORDS SUMMARY | ~2020-06-15 | XMS | Encounter Summary ---
Demographics + + + | Address | [address] | | | [place] [address] | + + + | Home Phone [...] + +------+ + | Care V Belt Coverer Name | Role | Phone | + [...] | 01/03/ | Telephone | [facility] | Emmanuel Daniel MD | Results, Pathology | | 2018 | | GASTROENTEROLOGY | [address], [place] | (egd,colon) | | | | [address] [place] | [address] [place], [place] | | | | | [address] [place], [place] | [address] | | | | | [address] | | | | | | [phone] | | | +--------+ + + + [...] encounter Miscellaneous Notes Telephone Encounter - Kaylynn Copelnad RN - 01/03/2018 3:33 PM PSTNotified patient [...] out he will buy his ticket to [facility]. Recall for colonoscopy entered for 5 years [...] any further diarrhea o r weight loss. doc umented in this encounter Plan of Treatment [...] | | | | | | [place] [address] | | | | | | [phone] | | | | | | | | +--------+ + + + + documented as of this encounter Visit Diagnoses Not on filedocumented in this encounter"
--- OUTSIDE RECORDS SUMMARY | ~2020-06-15 | XMS | Encounter Summary ---
Demographics + + + | Address | [address] | | | [place] [address] | + + + | Home Phone [...] Team Providers + +------+ + | Care Coating Technician Name | Role | Phone | [...] | Aneurysmal | [place], | [address] | | | | | dilatation | PARISA Solis | [place], | | | | | (HCC) | [address] | [place] | | | | | Procedures | [place] | [address] | | | | | ECHO | [place], | Phone: | | | | | Complete | [place] | [phone] | | | | | | [address] | Fax: | | | | | | Phone: | [phone] | | | | | | [phone] | | | | | | | Fax: | | | | | | | [phone] | | +--------+--------+ + + + + [...] | dilatation (HCC) | | | | [address], | [place], | (Primary Dx) | | | | [place] [address] | [place] [address] | | | | | [phone] | [phone] | | | | | | | [...] | | | | | | [place], | | | | | | [place] [address] | | | | | | [phone] | | | | | | | [...] Room Number SARAH Patient | | | [id number] Date of Study 11/16/2017 Number | | | Visit Number [id number] | | | Referring Physician GURJIT TROY Number | | | ELIZABETHANGELIA SOLIS Date | | | of 1960 Computer Network And Systems Engineer ROMAINE | | | MARISSA TIPTON Age 57 year(s) Interpreting | | | GURJIT TROY | | | Gear Tester SYDNI CAGLE, | | | | | | Gender Male Nurse | | | Stress Security Incident Handler Procedure Type of | | | Study [...] | | | EF | | | Uexiimktr88% Left Ventricle Diastolic Dimension: 5.12 cm | [...] Volume: 46.33 ml | | | EF Uyaddgsrt25% | | | | | | Left [...] BARRY Room Number SARAH | | Patient [id number] Date of Study 11/16/2017 Number Visit Number | | [id number] Referring Physician GURJIT TROY | | Number RHBROCKARD IRMA Date of | | 1960 Computer Network And Systems Engineer ROMAINE TIPTON RDCS Age 57 year(s) | | Interpreting GURJIT TROY Gear Tester | | SYDNI CAGLE MD | | [...] LA Volume: 46.33 ml | | EF Bfcldkuyx48% Left Ventricle Diastolic Dimension: 5.12 cm Systolic [...] LA Volume: 46.33 ml | | EF Dmtnksvwr15% | | | | Left Ventricle | [...]
--- OUTSIDE RECORDS SUMMARY | ~2020-06-15 | XMS | Encounter Summary ---
Demographics + + + | Address | [address] | | | [place] [address] | + + + | Home Phone [...] +------+ + | Care Tool And Die Supervisor Name | Role | Phone | [...] + | 11/05/ | Telephone | [facility] | Daljit Singletary, | Chest Pain | | 2016 | | CARDIOLOGY [address] | [address] [place] | | | | | [place], | [place], | | | | | [place] [address] | [place] [address] | | | | | [phone] | [phone] | | | | | | | [...] he was in the parking lot of [facility] an d wants to know if he can just come in to the office. Advised him if he has been having unre lieved chest pain that long he needs to go inside to the ED for help as it could be serious and he could have a heart attack before he could come to [place]. (Driving conditions th is morning are also not good to heavy snow in our region last night.) Patient agreed to go i [facility] ED to be seen. Electronically signed by: [...] | | | | | | [place] [address] | | | | | | [phone] | | | | | | | | +--------+ + + + + documented as of this encounter Visit Diagnoses Not on filedocumented in this encounter"
--- OUTSIDE RECORDS SUMMARY | ~2020-06-15 | XMS | Encounter Summary ---
Demographics + + + | Address | [address] | | | [place] [address] | + + + | Home Phone [...] Team Providers + +------+ + | Care Farmworker Dairy Name | Role | Phone | + [...] | | | | CENTER [address] | [address] | (Primary Dx) | | | | [place], [place] | [place], [place] | | | | | [address] | [address] | | | | | [phone] | | | +--------+ + + + [...] Hart MD - 06/21/2018Please follow-up with the [employer]. Return for dizziness, chest pain, shortness of [...] + + + +---------+ + + | Browns-3 Fatty | CAPS, one capsule by | [...] might be d ifferent from the original. [facility] Emergency Department Encounter Note [address] [place] [address] PCP:Kirk French MD [phone] eMERGENCY dEPARTMENT eNCOUnter [...] patient that appointment is due in Cardiology [facility] Natural [...] DOSE, CALL 911Disp-100 tablet, R-3 , Normal Browns-3 Fatty Acids (SALMON OIL-1000 PO) CAPS, one [...] or Severe Contraindications. Consult references such as [email or web address] for further information. rOPINIrole (REQUIP) 1 mg tablet Take 1 tablet by mouth nightly.R-0, Historical Med UNABLE TO FIND Take 1 tablet by mouth Daily. MARINE-J5Pkrasdgfdt Med UNCODED MEDICATION Diagnosis: Obstructive Sleep Apnea ICD-9: 327.23 Length of Need: 99 MonthsDisp-1 Device, R-0, [id number] -Nasal Pillows, M6521-Ayfis Mask, A 7030- Full Face Mask, A9668-Cgaxru Humidifier, U9490-Hrnvxn Tubing, Z3141-Azdhannh, H7276-Ee instrap A7039/A703 8-Filters valACYclovir (VALTREX) 1 g [...] deficits noted, no facial assymetry noted. 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 Rate: 70 Pax: normal Ectopy: none Conduction: P wave normal, [...] further reassurance. He is encouraged follow-up with hand inspector. Follow-up Information PARISA Lomas In 1 day. Specialty: Nurse Practitioner Contact information: [place] [address] Discharge Medication List as of 06/21/2018 13:01 Discharge Instructions Please follow-up with the hand inspector. Return for dizziness, chest pain, shortness of br eath. FINAL IMPRESSION 1. Chest pain, unspecified type Acute Portions of this chart may have been created with [employer] voice recognition software. Occasi onal wrong-word or [...] | | | | | | [place], | | | | | | [place] [address] | | | | | | [phone] | | | | | | | [...] W?MRN: | | | | | | [id number] | | | [id number] | | | his | | | [...] | | | ent/60 | | | [id number] | | | -5586- | | | [...] | | | St. | | | [place] | | | y | | | [...] | | | ext. | | | [address] | | | or go | | [...] | | | M.D. | | | Xerox Machine Operator | | | al | [...] [address] | [place] | [phone] | | [facility] | | [address] | | | - LABORATORY | | [...] [address] | [place] | [phone] | | [facility] | | [address] | | | - LABORATORY | | [...] | [address] | [place] | [phone] | | [facility] | | [address] | | | - LABORATORY | | [...] | mL/min/1.73m2 | APOLONIA | | | GUATEMALAN | RATE,ESTIMATED | | MEDICAL | | | | mL/min/1.31j5Ltom than | | CENTER - | | [...] ST. | [address] | [place], [place] | [phone] | | [facility] | | [address] | | | - LABORATORY | | [...] ST. | [address] | [place], [place] | [phone] | | [facility] | | [address] | | | [...] + | [address] | [address] | [place] | [phone] | | [facility] | | [address] | | | - LABORATORY | | [...] MD | | | | | | ([id number]) on 06/22/2018 | | | | | [...]
--- OUTSIDE RECORDS SUMMARY | ~2020-06-15 | XMS | Encounter Summary ---
Demographics + + + | Address | [address] | | | [place] [address] | + + + | Home Phone [...] Team Providers + +------+ + | Care Key Bed Installer Name | Role | Phone | [...] | | | | [place]IN[place] | [phone] | | | | | [address] | | | | | | [phone] | | | +--------+ + + + [...] + + + +---------+ + + | [place]-3 Fatty | CAPS, one capsule by | [...] | | | | | | [place] [address] | | | | | | [phone] | | | | | | | [...]
--- OUTSIDE RECORDS SUMMARY | ~2020-06-15 | XMS | Encounter Summary ---
Demographics + + + | Address | [address] | | | [place] [address] | + + + | Home Phone [...] Team Providers + +------+ + | Care Parks Recreation Director Name | Role | Phone | [...] Results | | 2013 | | [facility]IC[facility] [place] | DO [address] | | | | | [address] | [place], [place] | | | | | [place], [place] | [address] | | | | | [address] | | | | | | [phone] | | | +--------+ + + + [...] | | | | | | [place] [address] | | | | | | [phone] | | | | | | | | +--------+ + + + + documented as of this encounter Visit Diagnoses Not on filedocumented in this encounter"
--- OUTSIDE RECORDS SUMMARY | ~2020-06-15 | XMS | Encounter Summary ---
Demographics + + + | Address | [address] | | | [place] [address] | + + + | Home Phone [...] Providers + +------+ + | Care Grey Goods Examiner Name | Role | Phone | [...] + + | 06/22/ | Telephone | [facility] | Emmanuel Daniel MD | Lab Order | | 2019 | | GASTROENTEROLOGY | [address] [place] | | | | | [address] [place] | [address] [place], [place] | | | | | [address] [place], [place] | [address] | | | | | [address] | | | | | | [phone] | | | +--------+ + + + [...] He wants to have labs ordered at [facility] ut he wants to wait to see [...] | | | | | | [place] [address] | | | | | | [phone] | | | | | | | | +--------+ + + + + documented as of this encounter Visit Diagnoses Not on filedocumented in this encounter
--- OUTSIDE RECORDS SUMMARY | ~2020-06-15 | XMS | Encounter Summary ---
Demographics + + + | Address | [address] | | | [place] [address] | + + + | Home Phone [...] Providers + +------+ + | Care Metal Bonder Name | Role | Phone | [...] 2019 | | GASTROENTEROLOGY | [address] [place] | | | | | [address] [place] | [address] [place], [place] | | | | | [address] [place], [place] | [address] | | | | | [address] | | | | | | [phone] | | | +--------+ + + + [...] he would like to be transferred to [facility]. Routing to clinical staff. Provider/Nurse: Dr. Daniel Call back number: [phone] documented in this encou nter Plan of [...] | | | | | | [place] [address] | | | | | | [phone] | | | | | | | | +--------+ + + + + documented as of this encounter Visit Diagnoses Not on filedocumented in this encounter
--- OUTSIDE RECORDS SUMMARY | ~2020-06-15 | XMS | Encounter Summary ---
Demographics + + + | Address | [address] | | | [place] [address] | + + + | Home Phone [...] Providers + +------+ + | Care Area Loss Prevention Manager Name | Role | [...] [address] | | | | | [place], | [place], | | | | | [place] [address] | [place] [address] | | | | | [phone] | [phone] | | | | | | | [...] | | | | | | [place] [address] | | | | | | [phone] | | | | | | | [...] Resulting Agency Comment | + + | [facility] | + + + +---------+ + + [...] Resulting Agency Comment | + + | [facility] | + + + +---------+ + + [...] Comment | + + | [facility] | + + + +---------+ [...] Resulting Agency Comment | + + | [facility] | + + + [...] Resulting Agency Comment | + + | [facility] | + + + +---------+ + + [...] Resulting Agency Comment | + + | [facility] | + + + +---------+ + + [...] Resulting Agency Comment | + + | [facility] | + + + +---------+ + [...] Resulting Agency Comment | + + | [facility] | + + + +---------+ + [...] Comment | + + | [facility] | + + + +---------+ [...] Resulting Agency Comment | + + | [facility] | + + + +---------+ + + [...] Resulting Agency Comment | + + | [facility] | + + + +---------+ + + [...] Resulting Agency Comment | + + | [facility] | + + + +---------+ [...] Resulting Agency Comment | + + | [facility] | + + + +---------+ + + [...] Resulting Agency Comment | + + | [facility] | + + + +---------+ + + [...] Resulting Agency Comment | + + | [facility] | + + + +---------+ + + [...]
--- OUTSIDE RECORDS SUMMARY | ~2020-06-15 | XMS | Encounter Summary ---
Demographics + + + | Address | [address] | | | [place] [address] | + + + | Home Phone [...] + +------+ + | Care Middle School Professional Name | Role | Phone | [...] | CARDIOLOGY [address] | [address] | Interrogation | | | | [place], | [place], | (Primary Dx); | | | | [place] [address] | [place] [address] | Presence of | | | | [phone] | [phone] | permanent cardiac | | | | [...] [employer]ace[employer] documentation and remote PDF scanned into [employer] for remote interrogation re sults. Data collected [...] | | | | | | [place] [address] | | | | | | [phone] | | | | | | | [...]
--- OUTSIDE RECORDS SUMMARY | ~2020-06-15 | XMS | Encounter Summary ---
Demographics + + + | Address | [address] | | | [place] [address] | + + + | Home Phone [...] Providers + +------+ + | Care Director Social Name | Role | Phone | + [...] + | 09/05/ | Office | [facility] | Geri Angel, | SINUS BRADYCARDIA | | 2012 | Visit | CARDIOLOGY [address] | GUITAR TECHNICIAN [address] [place] | (Primary Dx); | | | | [place], | St [place], [place] | Symptomatic PVCs; | | | | [place] [address] | [address] | Hypertension; | | | | [phone] | | Hyperlipidemia | +--------+---------+ + + [...] and/or ref er you to electrophysiology in [place]. 3. Return in 3 months, or sooner [...] he did not followup with electrophysiology in [place], so he has remained on diltiaze m [...] L3-4 Lumbar discectomy 1991 L3-4 Appendectomy 2005 [facility] Sinus surgery 1997 Lumbar fusion 01/2011 Pacemaker [...] by mouth Ken y. 30 tablet 6 [place]-3 Fatty Acids (SALMON OIL-1000 PO) Active CAPS, [...] Sanchez Date: September 05, 2013 : 1960 Six Pack Packer: PARISA Velazquez Device Digital Forensic Analyst: CleverSettronic Sense (mV) Impedance (?) Capture (V) Capture (ms) A Lead 4-5.6 417 1.5 0.12 RV Lead >31.36 533 2.0 0.09 LV Lead Battery Impedance (?): 452 Battery Voltage (V): 2.79 NE Interval (ms): 162 AR Interval (ms): 245 VA Conduction: Mode Switch Events: 1 % of time: <0.1 -SKETCH MAKER: <0.1% AP-SKETCH MAKER: 0.1% -VS: 22.7% AP-VS: 77.1% SKETCH MAKER: Magnetic Rate: 85 LINDA: 65 LEAH: [...] to go back in 3 days to [place] for an attempt of ablation under general [...] He is upgraded to class I of [place] Heart Association functional class. There are no signs or symptoms of overt congestive heart failure. There is no fluid retention on physical examin ation. Patient continues on diltiazem and metoprolol, and at this point as he had a recurre nt episode last week will continue him on both of these medications. As this is the [facility] episode he has had he does not [...] he would like to see electrophysiology in [place] rather than [place] as he paulino s family there, if [...] to ensure accuracy; however, inadvertent computerized automotive worker foreman errors may be pre sent. Electronically signed [...] | | | | | | [place], | | | | | | [place] [address] | | | | | | [phone] | | | | | | | [...]
--- OUTSIDE RECORDS SUMMARY | ~2020-06-15 | XMS | Encounter Summary ---
Demographics + + + | Address | [address] | | | [place] [address] | + + + | Home Phone [...] Team Providers + +------+ + | Care Mechanics Handyman Name | Role | Phone | + [...] Other | | 2012 | | MEDICINE [place] | DO [address] | | | | | [address] | [place] | | | | | [place], [place] | [address] | | | | | [address] | | | | | | [phone] | | | +--------+ + + + [...] - 10/09/2013 10:49 AM Jessica Huttonstalin from [facility] NicoletteNestor called She is the medical services manager for [employer] They just wanted to let you know [...] | | | | | | [place] [address] | | | | | | [phone] | | | | | | | | +--------+ + + + + documented as of this encounter Visit Diagnoses Not on filedocumented in this encounter"
--- OUTSIDE RECORDS SUMMARY | ~2020-06-15 | XMS | Encounter Summary ---
Demographics + + + | Address | [address] | | | [place] [address] | + + + | Home Phone [...] Providers + +------+ + | Care Golf Cart Assembler Name | Role | Phone | [...] [place] | | | | | | [address] | | | | | | [phone] | | | +--------+ + + + [...] + + + +---------+ + + | [place]-3 Fatty | CAPS, one capsule by [...] | | | | | | [place], | | | | | | [place] [address] | | | | | | [phone] | | | | | | | | +--------+ + + + + documented as of this encounter Visit Diagnoses + + | Diagnosis | + + | Patient left after triage - Primary | + + documented in this encounter
--- OUTSIDE RECORDS SUMMARY | ~2020-06-15 | XMS | Encounter Summary ---
Demographics + + + | Address | [address] | | | [place] [address] | + + + | Home Phone [...] | CARDIOLOGY [address] | MD [address] | monitor | | | | [place], | [place], | disconnected) | | | | [place] [address] | [place] [address] | | | | | [phone] | [phone] | | | | | | | [...] other location s without success. I called [employer] and explained the situation. They recommend using an ethernet adapter as long as the patient has Wii Fi. Verified with patient that he does have internet and also verified his mailing address. [employer] will ship out the new equipment and [...] not connecting. Rec eived an e-mail from [employer] that they have been unable to reach [...] | | | | | | [place] [address] | | | | | | [phone] | | | | | | | | +--------+ + + + + documented as of this encounter Visit Diagnoses Not on filedocumented in this encounter"
--- OUTSIDE RECORDS SUMMARY | ~2020-06-15 | XMS | Encounter Summary ---
Demographics + + + | Address | [address] | | | [place] [address] | + + + | Home Phone [...] Providers + +------+ + | Care Medical Affairs Specialist Name | Role | Phone [...] + + | 11/29/ | Telephone | [facility] | Darin Gandhi | Appointment | | 2020 | | GASTROENTEROLOGY | MD Jacek [address] | | | | | [address] [place] | [address] [place] | | | | | [address] [place], [place] | [place] [address] | | | | | [address] | [phone] | | | | | [phone] | | | +--------+ + + + [...] after receiving a call from Johanna at [facility]; she advised pt was reluctant to call; [...] | | | | | | [place] [address] | | | | | | [phone] | | | | | | | | +--------+ + + + + documented as of this encounter Visit Diagnoses Not on filedocumented in this encounter"
--- OUTSIDE RECORDS SUMMARY | ~2020-06-15 | XMS | Encounter Summary ---
Demographics + + + | Address | [address] | | | [place] [address] | + + + | Home Phone [...] Providers + +------+ + | Care Patient Relations Specialist Name | Role | Phone | [...] | 09/20/ | Refill | [facility] | Michael Amanda, | Medication Refill | | 2011 | | MEDICINE [place] | DO [address] | | | | | [address] | [place] | | | | | [place], [place] | [address] | | | | | [address] | | | | | | [phone] | | | +--------+--------+ + + + [...] that prescription was sent to [facility] in [place]. elephone Encounter - Michael Amanda DO - [...] strips. He is requesting prescription sent to [facility] in [place] for these. He said Medicare will pay [...] [place], | | | | | | [place] [address] | | | | | | [phone] | | | | | | | | +--------+ + + + + documented as of this encounter Visit Diagnoses + + | Diagnosis | + + | Hypoglycemia - Primary Hypoglycemia, unspecified | + + documented in this encounter"
--- OUTSIDE RECORDS SUMMARY | ~2020-06-15 | XMS | Encounter Summary ---
Demographics + + + | Address | [address] | | | [place] [address] | + + + | Home Phone [...] Team Providers + +------+ + | Care Four Corner Stayer Machine Operator Name | Role | Phone [...] + + | 08/29/ | Office | [facility] | Silvia, | Essential | | 2015 | Visit | CARDIOLOGY [address] | PARISA [place] [address] | hypertension | | | | [place], | [place], | (Primary Dx); | | | | [place] [address] | [place] [address] | Coronary artery | | | | [phone] | [phone] | disease involving | | | | [...] was advised to come back to the [place] to furt her his evaluation. He was seen in the emergency room at [facility] on 08/23/20 15 and the ER physician reviewed his chart saying that there were 2 ultrasounds from [facility] both of them are clear of DVT but reveal some venous insufficiency. Today, arian ent tells me that he started having swelling in both his feet within a week when he got to [facility]. He had extensive traveling. [...] going to be traveling back to the [facility]. Today, patient states that his leg swelling [...] 3rd dose, call 911 100 tablet 3 [place]-3 Fatty Acids (SALMON OIL-1000 PO) CAPS, [...] Daily. to reduce urinary frequenc y Lot #[id number], exp 07/2016 (Patient taking differently: Take 8 mg by mouth Daily. PATIENT STA YOSELIN NO LONGER TAKING THIS MEDICATION. STATED ON 08/29/2015. to reduce urinary frequency Lot #[id number], exp 07/2016) 21 capsule 0 Specialty Vitamins [...] PLTEX 163 07/26/2014 I reviewed records from [facility] for emergency department visit o n 08/23/2015. [...] brought reports to the emergency room at [facility] and according to the not es [...] to go back in 3 days to [facility] for an attempt of ablation under general [...] dizziness. He is in class I-II of [place] Heart Association functional class. T here are [...] this chart may have been created with [employer] voice recognition software. Occasi onal wrong-word [...] | | | | | | [place] [address] | | | | | | [phone] | | | | | | | [...] the | | | | PDT | shishmaref ira coronary | results section. | | | [...] the groin through the popliteal fossa | [facility] | | in both lower extremities.. Grayscale [...] conveyed to the ordering provider, by the nurses' registry director, | | | immediately following the exam. [...] to the ordering provider, by the | |nurses' registry director, immediately following the exam. | | | | | |Dictated and Signed by: Emmanuel Gibbons MD | | Electronically signed: 08/29/2015 3:25 PM | + + + + + + + | Performing | Address | City/State/Zipcode | Phone Number | | Organization | | | | + + + + + | [facility] | [address] 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
--- OUTSIDE RECORDS SUMMARY | ~2020-06-15 | XMS | Encounter Summary ---
Demographics + + + | Address | [address] | | | [place] [address] | + + + | Home Phone [...] Team Providers + +------+ + | Care Aquarium Specialist Name | Role | Phone | [...] [address] | [place]. [place] | | | | | [address] [place] | [place] [address] | | | | | [address] | | | | | | [phone] | | | +--------+ + + + [...] | | | | | | [place] [address] | | | | | | [phone] | | | | | | | | +--------+ + + + + documented as of this encounter Visit Diagnoses Not on filedocumented in this encounter"
--- OUTSIDE RECORDS SUMMARY | ~2020-06-15 | XMS | Encounter Summary ---
Demographics + + + | Address | [address] | | | [place] [address] | + + + | Home Phone [...] Providers + +------+ + | Care Filter Machine Operator Name | Role | Phone [...] + + | 05/28/ | Refill | [facility] | Kirk French | Medication Refill | | 2019 | | [facility] | MD Bre[address] | | | | | [facility] [facility] | | | | | [address] | [place] [address] | | | | | [place], [place] | [phone] | | | | | [address] | | | | | | [phone] | | | +--------+--------+ + + + [...] Miscellaneous Notes Telephone Encounter - Geri Bear Pv Design And Installation Technician - 05/29/2020 10:29 AM Tanya ov [facility] umaguila in this encounter Plan of [...] | | | | | | [place] [address] | | | | | | [phone] | | | | | | | | +--------+ + + + + documented as of this encounter Visit Diagnoses Not on filedocumented in this encounter"
--- OUTSIDE RECORDS SUMMARY | ~2020-06-15 | XMS | Encounter Summary ---
Demographics + + + | Address | [address] | | | [place] [address] | + + + | Home Phone [...] + | 03/27/ | Telephone | [facility] | Anshumarianatesha, Daljit, | Other (Missed | | 2019 | | CARDIOLOGY [address] | MD [address] | [facility]) | | | | [place], | [place], | | | | | [place] [address] | [place] [address] | | | | | [phone] | [phone] | | | | | | | [...] | | | | | | [place] [address] | | | | | | [phone] | | | | | | | | +--------+ + + + + documented as of this encounter Visit Diagnoses Not on filedocumented in this encounter"
--- OUTSIDE RECORDS SUMMARY | ~2020-06-15 | XMS | Encounter Summary ---
Demographics + + + | Address | [address] | | | [place] [address] | + + + | Home Phone [...] Providers + +------+ + | Care Unit Director Name | Role | Phone | [...] | | | | [place]IN[place] | [phone] | | | | | [address] | | | | | | [phone] | | | +--------+ + + + [...] + + + +---------+ + + | [place]-3 Fatty | CAPS, one capsule by | [...] | | | | | | [place] [address] | | | | | | [phone] | | | | | | | [...]
--- OUTSIDE RECORDS SUMMARY | ~2020-06-15 | XMS | Encounter Summary ---
Demographics + + + | Address | [address] | | | [place] [address] | + + + | Home Phone [...] Providers + +------+ + | Care Peoplesoft Hcm Developer Name | Role | Phone | [...] 2017 | | CARDIOLOGY [address] | COLD ROLLING MACHINE SETTER [address] | | | | | [place], | [place], [place] | | | | | [place] [address] | [address] | | | | | [phone] | | | +--------+--------+ + + + [...] | | | | | | [place] [address] | | | | | | [phone] | | | | | | | | +--------+ + + + + documented as of this encounter Visit Diagnoses Not on filedocumented in this encounter"
--- OUTSIDE RECORDS SUMMARY | ~2020-06-15 | XMS | Encounter Summary ---
Demographics + + + | Address | [address] | | | [place] [address] | + + + | Home Phone [...] Providers + +------+ + | Care Lead Technician Name | Role | Phone | [...] | disease involving | | | | [place], | [place], | [place] coronary | | | | [place] [address] | [place] [address] | artery of [place] | | | | [phone] | [phone] | heart without angina | | | [...] | | | | | | [place] [address] | | | | | | [phone] | | | | | | | [...] MD | | | | | | ([id number]) on 06/23/2016 | | | | | [...] [place] heart without | | angina pectoris - Primary | + + | Essential hypertension with goal blood pressure less than 130/80 | + + documented in this encounter"
--- OUTSIDE RECORDS SUMMARY | ~2020-06-15 | XMS | Encounter Summary ---
Demographics + + + | Address | [address] | | | [place] [address] | + + + | Home Phone [...] Team Providers + +------+ + | Care Mallet Cutter Name | Role | Phone | + +------+ + | Kirk French MD | PCP | | + +------+ + Encounter Details +--------+---------+ + + + | Date | Type | Department | Care Team | Description | +--------+---------+ + + + | 01/25/ | Surgery | [facility] | Daljit Singletary, | CV LHC | | 2019 | | MED CTR CV INTRA OP | [address] | | | | | [address] | [address], | | | | | [place] | [place] [address] | | | | | [address] | [phone] | | | | | [phone] | | | +--------+---------+ + + + [...] as a collagen plugis used on the leonia triny site to close the site, you [...] by your healthcare provider Date Last Reviewed: 09/22/201619998123-6739 The [employer]. [address] [place] [address]. All righ ts reserved. This information is [...] + + + +---------+ + + | [place]-3 Fatty | CAPS, one capsule by | [...] premature ventricular contractions status post ablation dominique agn 2012, and bipolar disorder with anxiety. He [...] 3RD DOSE, CALL 911 100 tablet 3 [place]-3 Fatty Acids (SALMON OIL-1000 PO) CAPS, one capsule by mouth daily twice daily ondansetron (ZOFRAN ODT) 4 mg disintegrating tablet Take 4 mg by mouth. ONE TOUCH DELICA LANCETS [facility] [...] was found Confirmed by ANGELA MARADIAGA MD ([id number]) on 01/03/2019 8:10:39 PM LAB RESULTS reviewed [...] the HPI. RESULTS- I reviewed reports from [facility]: Xr Chest Ap Portable Result [...] ira coronary artery of venetie ira heart [facility] angina pectoris: A. 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 Heart failure stage [...] [facility] [place] on 01/30/2013. Patient had spontaneous PVC's from [...] go back in 3 days t o [place] for an attempt of ablation under [...] he has any further problems Christine Clemente Budget Examiner am acting as a scribe on behalf of, and in the pres ence of PARISA Lomas. - Christine M Sheoships, Budget Examiner 01/11/2019 13:46 I, PARISA Lomas, personally performed the services described in this documentati on, as scribed in my presence and it is both accurate and complete. -PARISA Lomas 01/11/2019 Portions of this chart may have been created with [employer] voice recognition software. Occasi onal wrong-word or [...] | | | | | | [place] [address] | | | | | | [phone] | | | | | | | [...] (1960) MEDICAL RECORD NUMBER: | | | [id number] OF PROCEDURE: 01/25/2019 HEAVY EQUIPMENT RENTAL ASSOCIATE: Daljit | | | MD Gemini PROCEDURES [...] | | |PRIMARY CARE PROVIDER: | | |iKrk French MD | | | | | [...] Sanchez, (1960) | | OF PROCEDURE: 01/25/2019PRIMARY EVIDENCE TECHNICIAN: Daljit Singletary MD PROCEDURES | | [...] or lesion | | type, unspecified whether venetie ira or transplanted heart | + + documented [...]
--- OUTSIDE RECORDS SUMMARY | ~2020-06-15 | XMS | Encounter Summary ---
Demographics + + + | Address | [address] | | | [place] [address] | + + + | Home Phone [...] Providers + +------+ + | Care Agricultural Equipment Mechanic Name | Role | Phone [...] + + | 02/15/ | Office | [facility] | Jay Cohn PA | DIDIER (obstructive | | 2012 | Visit | SLEEP DISORDER [address] | [address] | sleep apnea) | | | | [address] [place] | [place] | (Primary Dx) | | | | [place] [address] | [address] | | | | | [phone] | | | +--------+---------+ + + + [...] AM PDTGo to [facility] for replacement equipment including: Nasal pillows [...] pillows obtained from: [facility] [place] pressure is: 13 cm CPAP download [...] to go to [facility] [place] to replace his equipment, but it had [...] to go to [facility] [place] to g et a new mask and filter. He is to work toward wearing his CPAP 100% of the time he is asle ep. I will follow up again in 1 month, sooner prn. Fifteen minutes were spent xsiy-fv-lydy, wi th the majority of time spent [...] | | | | | | [place] [address] | | | | | | [phone] | | | | | | | | +--------+ + + + + documented as of this encounter Visit Diagnoses + + | Diagnosis | + + | DIDIER (obstructive sleep apnea) - Primary Obstructive sleep apnea (adult) (pediatric) | + + documented in this encounter"
--- OUTSIDE RECORDS SUMMARY | ~2020-06-15 | XMS | Encounter Summary ---
Demographics + + + | Address | [address] | | | [place] [address] | + + + | Home Phone [...] + +------+ + | Care At Risk Specialist Name | Role | Phone | + +------+ + | Kirk French MD | PCP | | + +------+ + Encounter Details +--------+ + + + + | Date | Type | Department | Care Team | Description | +--------+ + + + + | 01/05/ | [facility] | [facility] | Emmanuel Daniel MD | Functional diarrhea | | 2019 | Encounter | MED CTR MP INTRA OP | [address], [place] | (Primary Dx); Weight | | | | [address] | [address] [place], [place] | loss | | | | [place], [place] | [address] | | | | | [address] | | | | | | [phone] | | | +--------+ + + + [...] for a few hours. Date Last Reviewed: 09/22/201619995165-1330 The [employer]. [address] [place] [address]. All righ ts reserved. This information is [...] vomiting, or vomiting blood Date Last Reviewed: 05/22/201619999384-9938 [employer] [address] [place] [address], [place] [address]. All righ ts reserved. This information is [...] You can't be awakened Date Last Reviewed: 09/08/201619991372-2406 [employer]. [address] [place] [address]. All righ ts reserved. This information is [...] + + +---------+ + + | [place]-3 Fatty | CAPS, one capsule by | [...] of diarrhea since serving in the in [facility]. His last episodes of diarrhea started [...] inflammatory bowel disease. CT scan done through [facility] November s howed mild diverticulosis without evidence [...] Endoscopy Patient: Moe Sanchez : 1960 Acct: [id number] Exam Date: December Doctor: Emmanuel Daniel MD [...] If unable to reach your physician, call [facility] Emergency Department at [address]. [address] Your [...] Exams Patient: Moe Sanchez : 1960 Acct: [id number] Exam Date: December Doctor: Emmanuel Daniel MD [...] If unable to reach your physician, call [facility] Emergency Department at [address] Your [...] W | | | | | | [place], | | | | | | [place] [address] | | | | | | [phone] | | | | | | | [...] + + | Performed at: 01 - [facility] [address], | REFERENCE LAB | | [place], [place] [address] Animal Science Instructor: Miguel Galarza MD, Phone: | [facility] - KINA | | [phone] | | + + + + + + + + | Performing | Address | City/State/Zipcode | Phone Number | | Organization | | | | + + + + + | [facility] | [address] | [place], [place] | [phone] | | [facility] | [place] | [address] | | + + + + + [...] | REFERENCE LAB | | [place] [phone] Animal Science Instructor: Miguel Galarza MD, Phone: | [facility] | | [phone] | | + + + + + + + + | Performing | Address | City/State/Zipcode | Phone Number | | Organization | | | | + + + + + | REFERENCE LAB | [address] | [place], [place] | [phone] | | [facility] | [place] | [address] | | + + + + + [...] + | [facility] | [address] | [place] | [phone] | | [facility] | | [address] | | | - LABORATORY | | [...] [address] | [place] | [phone] | | [facility] | | [address] | | | - LABORATORY | | [...] [address] | [place] | [phone] | | [facility] | | [address] | | | - LABORATORY | | [...] + | [facility] | [address] | [place] | [phone] | | [facility] | | [address] | | | - LABORATORY | | [...] ST. | [address] | [place] | [phone] | | [facility] | | [address] | | | - LABORATORY | | [...] [address] | [place] | [phone] | | [facility] | | [address] | | | - LABORATORY | | | | + + + + + EGD (01/05/2019 8:36 AM PST) + + | Specimen | + + | | + + + + -+ | Narrative | Performed At | + + -+ | | [facility] | | GastroenterologyPatient Name: Moe Venegas Date: | PROVATION | | 01/05/2019 8:36 AMMRN: [id number] #: [id number] of : | | | 9Admit Type: AmbulatoryAge: 58Room: [facility] 01Gender: MaleNote | | | Status: FinalizedAttending MD: Emmanuel Daniel , MDProcedure: | | | Upper GI endoscopyIndications: Diarrhea, Weight | | | lossProviders: Emmanuel Daniel MD, Heidi Mixon Trinity, | | | RN, Kim Hicks, Parts Facilitator, | | | Jarett Barakat MD (Anesthesia [...] physician, the nurse, the anesthesiologist and the filter changing technician | | | in the endoscopy [...] | | Imaging was performed using the [employer] | | | Endoscopy (FICE) [...] Scope In: 8:43:57 AMScope Out: 8:49:50 AM [facility]. | | | [facility], [address] [place] [address] | | | [phone] | | |Recommendation: | | | - [...] |Scope Out: 8:49:50 AM | | | [facility]. [facility], [address] [place] [address] | | | [address] | | + + -+ + +---------+ [...] | PROVATION | | 01/05/2019 8:36 AMMRN: [id number] #: [id number] of : | | | 9Admit Type: AmbulatoryAge: 58Room: [facility] 01Gender: MaleNote | | | Status: FinalizedAttending MD: Emmanuel Daniel , [facility]cedure: | | | ColonoscopyIndications: Clinically significant diarrhea of | | | unexplained origin, Weight lossProviders: | | | Emmanuel Daniel MD, Heidi An RN, Kim | | | Fiorella Hicks, Parts Facilitator, Jarett Alejo | | | MD Roshni [...] | | | the anesthesiologist and the filter changing technician in the endoscopy suite. | | [...] AMScope Out: | | | 9:06:28 AM [facility], [address] [facility], | | | [place] [address] | | | - Discharge patient to [...] |Scope Out: 9:06:28 AM | | | [facility], [address] [facility], [place] | | | [address] | | + + -+ + +---------+ [...] | | | (atherosclerotic heart disease of chenega coronary artery without | | | angina [...] chronic or | | | microscopic colitis. [facility]:C3NR GROSS DESCRIPTION: A. The | | | specimen, labeled "Bed[place], duodenal biopsy" is received in formalin | | | and consists of seven 0.1-0.5 cm lin fragments. Entirely submitted in | | | (A1). B. The specimen, labeled "[place], right colon" is received | | | in formalin and consists of six 0.2-0.3 cm lin fragments. Entirely | | | submitted in (B1). C. The specimen, labeled "[place], left colon" | | | is received in formalin and consists of six 0.2-0.3 cm lin-pink | | | fragments. Entirely submitted in (C1). am:AMB:rds PERFORMING | | | LABORATORY: The technical component was performed by [facility] | | | [place] [address] (Cager Operator: | | | Kailey Stafford MD; CLIA# [id number]). Professional interpretation was | | | performed by [facility], [facility], [facility] | | | [place] [address] (Cager Operator: Ishaan [place] | Shanique Dao M.D.; CLIA#: [id number]). Diagnostician: Ishaan Fitzpatrick | | Shanique Dao [...] Wheezing, | | | Starting [facility] 01/05/19 at 0924, | | | [...]
--- OUTSIDE RECORDS SUMMARY | ~2020-06-15 | XMS | Encounter Summary ---
Demographics + + + | Address | [address] | | | [place] [address] | + + + | Home Phone [...] Team Providers + +------+ + | Care Promotional Advertising Assistant Name | Role | Phone | [...] | | | [address] [place] | [place] [address] | | | | | [place] [address] | | | | | | [phone] | | | +--------+ + + + [...] | | | | | | [place] [address] | | | | | | [phone] | | | | | | | [...] for comparison only - no result from [place]. | | + + + + +---------+ + + | Performing | Address | City/State/Zipcode | Phone Number | | Organization | | | | + +---------+ + + | [facility] | | | | + +---------+ + + documented in this encounter Visit Diagnoses Not on filedocumented in this encounter"
--- OUTSIDE RECORDS SUMMARY | ~2020-06-15 | XMS | Encounter Summary ---
Demographics + + + | Address | [address] | | | [place] [address] | + + + | Home Phone [...] Providers + +------+ + | Care Department Mgr Name | Role | Phone | + +------+ + | Kirk rFench MD | PCP | | + +------+ + Encounter Details +--------+ + + + + | Date | Type | Department | Care Team | Description | +--------+ + + + + | 08/29/ | [facility] | [facility] | Silvia | DVT (deep venous | | 2014 | Encounter | MED CTR ULTRASOUND | [place] [address] | thrombosis), | | | | [address] [place] | [place], | bilateral (HCC) | | | | [place], [place] | [place] [address] | | | | | [address] | [phone] | | | | | [phone] | | | +--------+ + + + [...] + + + +---------+ + + | [place]-3 Fatty | CAPS, one capsule by | [...] | | | | | | | #[id number], exp 07/2016 | | | | | [...] | | | | | | [place] [address] | | | | | | [phone] | | | | | | | [...] groin through the popliteal fossa | [facility] | | in both lower extremities.. [...] conveyed to the ordering provider, by the solder deposit operator, | | | immediately following the [...] to the ordering provider, by the | |solder deposit operator, immediately following the exam. | | | | | |Dictated and Signed by: Emmanuel Gibbons MD | | Electronically signed: 08/29/2015 3:25 PM | + + + + + + + | Performing | Address | City/State/Zipcode | Phone Number | | Organization | | | | + + + + + | [facility] | [address] | [place] | [phone] | | [facility] | | [address] | | | - IMAGING | | | | + + + + + documented in this encounter Visit Diagnoses + + | Diagnosis | + + | DVT (deep venous thrombosis), bilateral | + + documented in this encounter"
--- OUTSIDE RECORDS SUMMARY | ~2020-06-15 | XMS | Encounter Summary ---
Demographics + + + | Address | [address] | | | [place] [address] | + + + | Home Phone [...] Providers + +------+ + | Care Wildlife Removal Specialist Name | Role | Phone | [...] | type | [address] | [address] | | | | | Procedures | ST [place] | [place], | | | | | FUP | [place], [place] | [place] [address] | | | | | | [address] | Phone: | | | | | | Phone: | [phone] | | | | | | [phone] | Fax: | | | | | | Fax: | [phone] | | | | | | [phone] | | +--------+ + + + + + Reason for Visit + + + | Reason | Comments | + + + | Chest Pain | | + + + Encounter Details +--------+ + + + + | Date | Type | Department | Care Team | Description | +--------+ + + + + | 06/20/ | Emergency | [facility] | Franki Pham | Chest pain, | | 2018 | | MED CTR EMERGENCY | MD Martell [address] | unspecified type | | | | CENTER [address] | [address] [place] | (Primary Dx) | | | | [place], [place] | [place] [address] | | | | | [address] | [phone] | | | | | [phone] | | | +--------+ + + + [...] cannot be sent through Care Everywhere.Angina, Stable (Central African)documented in this encounter Medications at Time of [...] + + +---------+ + + | [place]-3 Fatty | CAPS, one capsule by | [...] than PVC'S. Patient took 4 baby asa lpta. ranki Pham MD - 06/20/2018 6 :54 PM PDT [facility] Moe Sanchez Emergency Department Encounter Note [address] [place] [address] PCP:Kirk French MD [phone] CHIEF COMPLAINT: Chief [...] PVC'S. Patie nt took 4 baby asa lpta. He reports that earlier today while doing [...] coronary artery disease denies ever having an [place] or being stented. His symptoms lasted for approximately 30 minutes. Were sudden in onset with resolution over this time course. No as sociated trauma or other associated symptoms. Language line stockholder made available and used to collect historical [...] performed by Dr. Gambino at [facility] on 01/30/2013. Patient had spontaneous PVCs from [...] to go back in 3 days to [place] for an attempt of ablation under general [...] Left Heart Cath, 02/29/2012, LVEF is 65%, [facility] Myocardial Gated Stress Test, 05/25/2009, EF 53 % during rest and 52% during stress. [place], [place]. Persantine Sestamibi Stress Test, 06/14/2008, LVEF is 60%, [facility] 12/25/13, shows noncritical coronary artery disease, mild [...] SERIAL# DATE IMPLANTED GENERATOR Medtronic DDD ADDR01 [id number] 06/14/09 RV LEAD Medtronic Active Bipolar CapSureFix 4076 [id number] 06/14/09 A LEAD Medtronic Active Bipolar CapSurFix 4076 [id number] 06/14/09 Depression with anxiety 12/24/2017 Priority: Medium Coronary artery disease involving green[place] coronary artery of green[place] heart without angina pectoris 12/21/2013 Priority: Medium [...] tissue attenuation cannot completely be ruled out. [facility] 12/25/13, shows non critical coronary artery [...] Last Updated: 12/24/2017 Lower back injury ([facility]) 1981 1985 Hyperlipidemia, mixed Priority: Low [...] 07/26/[address] Angiogram chest w/constrast 05/26/14 [facility] Hypoglycemia 09/20/2012 Bipolar disorder (HCC) Mixed [...] COLONOSCOPY; Surgeon: Emmanuel Daniel MD; Location: [facility] MEDICAL PROCEDURE UNIT HARDWARE REMOVAL KNEE SURGERY 2003 meniscus-right LAMINECTOMY 1991 L3-4 LUMBAR DISCECTOMY 1991 L3-4 LUMBAR FUSION 01/2011 6 spine fusions neck fusion 08/10/2012 [place] NECK SURGERY PACEMAKER PLACEMENT 06/14/09 SHOULDER SURGERY 03/22/13 SINUS SURGERY 1997 SPINAL FUSION STOMACH SURGERY UPPER GASTROINTESTINAL ENDOSCOPY N/A 12/24/2017 Procedure: EGD; Surgeon: Emmanuel Daniel MD; Location: [facility] MEDICAL PROCEDURE UNIT VASECTOMY CURRENT MEDICATIONS [...] patient that appointment is due in [facility] [...] DOSE, CALL 911Disp-100 tablet, R-3 , Normal [place]-3 Fatty Acids (SALMON OIL-1000 PO) CAPS, one [...] or Severe Contraindications. Consult references such as [employer] for further information. rOPINIrole (REQUIP) 1 mg tablet Take 1 tablet by mouth nightly.R-0, Historical Med UNABLE TO FIND Take 1 tablet by mouth Daily. MARINE-R3Apfokwzxtw Med UNCODED MEDICATION Diagnosis: Obstructive Sleep Apnea ICD-9: 327.23 Length of Need: 99 MonthsDisp-1 Device, R-0, HuthnV0807 -Nasal Pillows, F9944-Wkbml Mask, A 7030- Full Face Mask, O2413-Pskumo Humidifier, P7826-Ngfqem Tubing, I0297-Fyelagzw, T2254-Wp instrap A7039/A703 8-Filters valACYclovir (VALTREX) 1 g [...] were reviewed along with EMS notes and snf record s if applicable. (See chart for [...] hospital for cardiac workup in this setting, [facility] er The patient is AAOx4, clinically [...] Internal Medicine Contact information: [address] [address] Daljit Singletary MD. Call today. Specialty: Cardiology Contact information: [address] [facility] [address] Discharge Medication List as of 06/20/2018 21:55 Portions of this chart were created with [employer] voice recognition software. Inadvertent so und alike [...] W | | | | | | [address] [place], | | | | | | [place] [address] | | | | | | [phone] | | | | | | | [...] W?MRN: | | | | | | [id number] | | | [id number] | | | his | | | [...] | | | ecarep | | | ashely.co | | | m/arian | | | ent/60 | | | [id number] | | | [phone]- | | | [...] | | | St. | | | [place] | | | y | | | [...] | | | ext. | | | [address] | | | or go | | [...] | | | M.D. | | | Wirer | | | al | | | [...] | | | | ANGELA MARADIAGA MD ([id number]) | | | | | | on [...] | | | | [employer] | | | | | [...] [address] | [place] | [phone] | | [facility] | | [address] | | | - LABORATORY | | [...] [address] | [place] | [phone] | | [facility] | | [address] | | | - LABORATORY | | [...] | | | | [employer] | | | | | [...] [address] | [place] | [phone] | | [facility] | | [address] | | | - LABORATORY | | [...] | | MEDICAL | | | | mL/min/1.91r9Rnyh than | | CENTER - | | [...] [address] | [place] | [phone] | | [facility] | | [address] | | | - LABORATORY | | [...] + | [address] | [address] | [place] | [phone] | | [facility] | | [address] | | | - LABORATORY | | [...] | | | | ANGELA MARADIAGA MD ([id number]) | | | | | | on [...]
--- OUTSIDE RECORDS SUMMARY | ~2020-06-15 | XMS | Encounter Summary ---
Demographics + + + | Address | [address] | | | [place] [address] | + + + | Home Phone [...] Providers + +------+ + | Care Machine Joiner Cementer Name | Role | Phone | [...] [place] | | | | | [place] | | [address] Phone: | | | | | CYSTO/URETER | | [phone] | | | | | O | | Fax: | | | | | W/LITHOTRIPS | | [phone] | | | | | Y &INDWELL [...] | | | | | [address] | [place] | | | | | [place] | [address] | | | | | [address] | | | | | | [phone] | | | +--------+ + + + [...] +----+---+ + + | | 0 | [place] | | | | 8 | 43-degrees | | | | 2 | | | | | 7 | | | +----+---+ + + | | 0 | First | | | | 8 | Inc/Proc St | | | | 2 | | | | | 8 | | | +----+---+ + + | | 0 | [place] off | | | | 9 | [...] 04/13/19 121 by | | eral | rtse-mvp-ymkjxf catheter system; | Dominga Steen RN | Marimaa Carty RN | | IV | 20 [...] EVALUATION Moe Sanchez 59 y.o. male 1960 [id number] Procedure(s) Cystoscopy, Left ureteroscopy with laser lithotripsy, [...] signed by Jay Benjamin MD 04/13/2019 12:03 [facility] by Jay Benjamin MD at [...] EVALUATION Moe Sanchez 59 y.o. male 1960 [id number] Procedure(s): Cystoscopy, Left ureteroscopy with laser lithotripsy, [...] hypertension, (+) cor onary artery disease of [place] artery. . Pulmonary (+) sleep apnea. (+) [...] | | | | | | [place] [address] | | | | | | [phone] | | | | | | | [...] | | | CONTINUOUS, Starting [facility] 04/13/19 | | AM PDT | | | | | at 0700, TKO., Pre-op | | | | | | + +---------+ +---+---+---+ +---+---+ | | | +---+---+ + +-------+ +------+---+---+ | midazolam (VERSED) 1 mg/mL | Given | 04/13/20 | 2 mg | | | | injection Intravenous, PRN, | | 19 8:24 | | | | | Starting [facility] 04/13/19 at 0808, | | AM [...]
--- OUTSIDE RECORDS SUMMARY | ~2020-06-15 | XMS | Clinical Summary ---
Demographics + + + | Address | [address] [place] [address] | | | [place] [address] | + + + | Home Phone [...] [place] | | | | | [address] | | + + + + + Care Team Providers + +------+ + | Care Compliance Professional Name | Role | Phone | + +------+ + | Darion Holden DO | PCP | | + +------+ + Source Comments IVETTE is fully live on both EpicCare Ambulatory and EpicCare InPatient.Formerly [facility], [facility] & [facility] Allergies + + + + + + [...] 06/24/2015, | | | vaccination (#1) | 0 | 09/10/2009, Additional history | [...] | | | | | | | [address] | | + +--------+ +--------+ + +--------+ | [employer] | [employer]ARP | xxxxxxxxxx | 11/22/19 | [phone] | [address] | Indemn | | RETIRED PEOPLE | | | 10-Pre | 9 | [id number] | ity | | | | | sent | | [place], [place] | | | | | | | | [address] | | + +--------+ +--------+ + +--------+ + +--------+ +--------+ + + | Guarantor Name | Accoun | Relation to | Date | Phone | Billing Address | | | t Type | Patient | of | | | | | | | | | | + +--------+ +--------+ + + | Moe Sanchez W | Person | Self | [birth year] | [address] | | | cristo/Per | | 1959 | [phone] | [place] | | | roxanne | | | 8 (Home) | [address] | + +--------+ +--------+ + + Advance Directives + + + + + | Type | Date Recorded | Patient | Explanation | | | | Machine Fancy Stitcher | | + + + + + | Advance | | | | | Directives and | | | | | Living Will | | | | + + + + + | Power of | | | | | Booster Pump Oiler | | | | + + + + +
--- OUTSIDE RECORDS SUMMARY | ~2020-06-15 | XMS | Encounter Summary ---
Demographics + + + | Address | [address] | | | [place] [address] | + + + | Home Phone [...] Providers + +------+ + | Care Police Commanding Officer Name | Role | Phone [...] | | CARDIOLOGY [address] | Janeen FACING END TRIMMER [address] | having chest pain) | | | | [place], | [place], | | | | | [place] [address] | [place] [address] | | | | | [phone] | [phone] | | | | | | | [...] | | | | | | [place] [address] | | | | | | [phone] | | | | | | | | +--------+ + + + + documented as of this encounter Visit Diagnoses Not on filedocumented in this encounter"
--- OUTSIDE RECORDS SUMMARY | ~2020-06-15 | XMS | Encounter Summary ---
Demographics + + + | Address | [address] [place] [address] CALEB LOZANO | | | [place] [address] | + + + | Home Phone [...] [place] | | | | | [address] | | + + + + + Care Team Providers + +------+ + | Care Software Implementation Project Manager Name | Role | Phone [...] Chest pain | Farooq Almaguer, | [address] | | | | | Bradycardia | DO [address] | | | | | Procedures | Yao Booth | [facility] | | | | | | [facility] | Health and | | | | | TRANSTHORACI | [facility] [place] | Healing, | | | | | C | [address] | Building [address] | | | | | ECHOCARDIOGR | Phone: | [place], [place] | | | | | AM, ADULT | [phone] | [address] | | | | | | Fax: | Phone: | | | | | | [phone] | [phone] | +--------+--------+ + + + + Reason [...] | | | | | | [place] [address] | | | | | | | Phone: | | | | | | | [phone] | | | | | | | Fax: | | | | | | | [phone] | | +--------+--------+ + + + + [...] | Dx); Bradycardia; | | | | [facility] for | | Pacemaker | | | | Health and Healing, | | | | | | Building | | | | | | [place], [place] | | | | | | [address] | | | | | | [phone] | | | +--------+---------+ + + + [...] per Dr. Drew's note. Farooq Jamil DO Production Maintenance Technician Clinical scrap crane operator/ Division of Cardiovascular Medicine asonrussell Yajaira, RN - 02/09/2011 12:59 PM PDT PACEMAKER HISTORY Primary Care Provider: Darion Holden DO Final Inspector Shuttle: Arlette Drew MD Moe Sanchez is a [...] pacemaker was put at the recommendation of Final Inspector Shuttle Dr. Singletary from [place]. [place]. Pt. states lala bhatti was put>1 [...] [address] Mailcode: Ch[facility], 9th Floor [facility] [address] documented in this en counter Plan of [...] Way Lab) | [facility] | | [facility] [address] [place] [address] | REGIONAL | | [place] [address] | LABORATORY | + + + + + + + + | Performing | Address | City/State/Zipcode | Phone Number | | Organization | | | | + + + + + | [facility] | [address] | [place] [address] | | | LABORATORY | | | [...] 10.0 ug/dl | LABORATORY | | RLB ([address] [facility]) | | | [facility] [place] [address] | | | [place] [facility] [place] [address] | | + + + + + + + + | Performing | Address | City/State/Zipcode | Phone Number | | Organization | | | | + + + + + | [facility] | [address] | [place] [address] | | | LABORATORY | | | [...] + + + + + | [facility] DEPARTMENT | [address] | [place] [address] | | | PATHOLOGY | [address] [...] DEPT OF | [address] | [place], [place] | | | CARDIOLOGY | [address] | [address] | | + + + + + [...] DEPT OF | [address] | [place], [place] | | | CARDIOLOGY | [address] | [address] | | + + + + + [...] view image for the detailed interpretation from [employer] results. | CARDIOLOGY | + + + + + + + + | Performing | Address | City/State/Zipcode | Phone Number | | Organization | | | | + + + + + | [facility] DEPT OF | [address] | [place], [place] | | | CARDIOLOGY | [address] | [address] | | + + + + + documented in this encounter Visit Diagnoses + + | Diagnosis | + + | Chest pain - Primary Chest pain, unspecified | + + | Bradycardia Other specified cardiac dysrhythmias | + + | Pacemaker Cardiac pacemaker in situ | + + documented in this encounter
--- OUTSIDE RECORDS SUMMARY | ~2020-06-15 | XMS | Encounter Summary ---
Demographics + + + | Address | [address] | | | [place] [address] | + + + | Home Phone [...] Providers + +------+ + | Care Police Detention Attendant Name | Role | Phone | [...] [address] | | | | | [address], [place] | [place] [address] | | | | | [address] | [phone] | | | | | [phone] | | | +--------+--------+ + + + [...] PSTRefill Shanell ctronically signed by Geri Bear Rat Poisoner at 10/26/2019 1:47 PM PSTdocumented in this [...] | | | | | | [place] [address] | | | | | | [phone] | | | | | | | | +--------+ + + + + documented as of this encounter Visit Diagnoses Not on filedocumented in this encounter"
--- OUTSIDE RECORDS SUMMARY | ~2020-06-15 | XMS | Encounter Summary ---
Demographics + + + | Address | [address] | | | [place] [address] | + + + | Home Phone [...] Team Providers + +------+ + | Care Matrix Bath Operator Name | Role | Phone | + +------+ + | Michael Amanda DO | PCP | | + +------+ + Encounter Details +--------+ + + + + | Date | Type | Department | Care Team | Description | +--------+ + + + + | 01/31/ | Hospital | [facility] | Adrian Gutierrez MD | | | 2012 | Encounter | HEART MED CTR | [address] | | | | | EMERGENCY CENTER | [place], [place] | | | | | [address] | [address] | | | | | [place] | [phone] | | | | | [address] | | | | | | [phone] | | | +--------+ + + + [...] + + + +---------+ + + | Metz-3 Fatty | CAPS, one capsule by | [...] 01/31/2013 Age/Sex: 52Y / M : 1960 [id number] / [id number] CHIEF COMPLAINT: Dizziness with chest discomfort. HISTORY OF PRESENT ILLNESS: This is a 52-year-old male here from [place], [place]. Appare ntly, he has a history of bradycardia and a pacemaker, also PVCs or PACs, and is on a stabl e dose of metoprolol, but was referred to Dr. Gambino here in [place] for ablation procedur e. This was undertaken [...] back home tomorrow. He has a primary cnmt that he sees in [place]. The patient's pacemaker has been there for [...] and listed as disabled. He lives in [place]. He says his d octor is Dr. Singletary. He is a nonsmoker. PHYSICAL EXAMINATION: GENERAL: A robust-appearing 52-year-old male, slightly anxious, but in no obvious distress . VITAL SIGNS: Initial blood pressure 135/93, heart rate 71 and seems MOE GAY ADM:01/31/13 [id number] [facility] EM[facility]GENCY DEPARTMENT RECORD [id number] [facility] Adrian rosenthal MD E-Sign: [facility] THIS REPORT IS CONFIDENTIAL AND NOT TO BE RELEASED WITHOUT PROPER AUTHORIZATION. [facility] regular, respirations 16, oxygen saturation 97% [...] high, BUN and VICTOR HUGOMOE Jaimee ADM:01/31/13 [id number] [facility] EM[facility] DEPARTMENT RECORD [id number] [facility] Adrian rosenthal MD E-Sign: [facility] THIS REPORT IS CONFIDENTIAL AND NOT TO BE RELEASED WITHOUT PROPER AUTHORIZATION. [facility] creatinine are 14 and 0.9. No [...] [place]. Certainly, if he has chest pain while here in [place], he to return immediately for re peat evaluation. DIAGNOSES: 1. Arrhythmia with near syncope in context of recent attempted ablation, symptomatic PVC s. 2. Noncardiac chest pain 3. Mild hypokalemia, again, it has been replaced, and we will recommend increased potass ium intake in his diet for the short-term. 4. He was discharged. Adrian Gutierrez MD P A SPM/dkm #[id number] cc: MD Adrian Pleitez MD Suwong Wongsuwan, MD Electronically Signed 02/16/13 1055 Adrian Gutierrez MD MONA GAY ADM:01/31/13 [id number] [facility] EM[facility] DEPART[facility] RECORD [id number] [facility] Adrian rosenthal MD E-Sign: [facility] THIS REPORT IS CONFIDENTIAL AND NOT [...] | | | | | | [place] [address] | | | | | | [phone] | | | | | | | [...] + + + | Exam Performed Location: [facility] [place] TWO-VIEW | MISCELANIOUS | | CHEST CLINICAL [...] | an acute cardiopulmonary process. S: SQ ([id number]) Signed by: | | | JAYNE SPEAR MD | | + + + + + | Procedure Note | + + | Kevin, Rad Conversion - 09/13/2013 10:25 PM PDT Exam Performed [facility] CHEST[facility]ICAL INFORMATION:Shortness of | | breath.COMPARISON:None.FINDINGS:There is a left subclavian dual lead cardiac pacer. The | | heart sizeand mediastinal contours are normal. The pulmonary vasculature isnormal. No | | focal airspace opacities, pleural effusions, orpneumothorax. Cervical fusion hardware | | is noted. No acute osseousfindings.IMPRESSION:No evidence of an acute cardiopulmonary | | process.S: SQ ([id number]) Signed by: JAYNE SPEAR MD | |COMPARISON: [...] | | | | | |S: SQ ([id number]) Signed by: JAYNE SPEAR MD | + + + +---------+ + + | Performing | Address | City/State/Zipcode | Phone Number | | Organization | | | | + +---------+ + + | [facility] | | | [phone] | + +---------+ + + | MISCELANIOUS LAB | | | [phone] | + +---------+ + + Troponin I [...] + + | YESSY JONES | [address] | [place] [address] | | | [facility] | | | | | LABORATORY | | | | + + + + + | YESSY JONES | | | | | [facility] | | | | | [...] + | [facility] | [address] [facility]. | [place] [address] | | | [facility]ART [facility] | [...] + + | YESSY JONES | [address] | [place] [address] | | | [facility] | | | | | LABORATORY | | | | + + + + + | YESSY JONES | | | | | [facility] | | | | | [...] + + | YESSY JONES | [address] | [place] [address] | | | HEART [facility] | | | | | LABORATORY | | | | + + + + + | YESSY JONES | | | | | [facility] [...] + + | Glucose | 154 (H)Comment: [place] Islander | 65 - 99 mg/dL | [facility] | | | | Diabetes Association | [...] + + | YESSY JONES | [address] [place] | [place] [address] | | | [facility] | | | | | LABORATORY | | | | + + + + + | YESSY JONES | | | | | [facility] | | | | | LABORATORY | | | | + + + + + documented in this encounter Visit Diagnoses Not on filedocumented in this encounter"
--- OUTSIDE RECORDS SUMMARY | ~2020-06-15 | XMS | Encounter Summary ---
Demographics + + + | Address | [address] | | | [place] [address] | + + + | Home Phone [...] Team Providers + +------+ + | Care Locksmith Name | Role | Phone | + [...] [address] | | | | | [address] | [place] [address] | | | | | [phone] | [phone] | | | | | | | [...] | | | | | | [place] [address] | | | | | | [phone] | | | | | | | [...]
--- OUTSIDE RECORDS SUMMARY | ~2020-06-15 | XMS | Encounter Summary ---
Demographics + + + | Address | [address] [place] [address] CALEB LOZANO | | | [place] [address] | + + + | Home Phone [...] [place] | | | | | [address] | | + + + + + Care Team Providers + +------+ + | Care Quality Engineering Manager Name | Role | Phone [...] | | | | [address] | [place], [place] | | | | | for Health and | [address] | | | | | Healing, Building [address] | [phone] | | | | | [place], [place] | | | | | | [address] | | | | | | [phone] | | | +--------+ + + + [...]
--- OUTSIDE RECORDS SUMMARY | ~2020-06-15 | XMS | Encounter Summary ---
Demographics + + + | Address | [address] | | | [place] [address] | + + + | Home Phone [...] Team Providers + +------+ + | Care Presidential Helicopter Crew Chief Name | Role | Phone | + +------+ + PCP | Unavailable | + +------+ + Encounter Details +--------+ + + + + | Date | Type | Department | Care Team | Description | +--------+ + + + + | 06/23/ | [facility] | [facility] | Arthur Page MD | | | 2007 - | Encounter | MED CTR MED ONC | [address] [facility] | | | | | [address] | [place] | | | 06/25/ | | [place] [address] | [address] | | | 2007 | | [phone] | | | +--------+ + + + [...] | | | | | | [place] [address] | | | | | | [phone] | | | | | | | | +--------+ + + + + documented as of this encounter Visit Diagnoses Not on filedocumented in this encounter"
--- OUTSIDE RECORDS SUMMARY | ~2020-06-15 | XMS | Encounter Summary ---
Demographics + + + | Address | [address] | | | [place] [address] | + + + | Home Phone [...] +------+ + | Care Body And Fender Worker Name | Role | Phone | [...] + + | 05/03/ | Telephone | [facility] | Kirk French | Medication Orders | | 2019 | | [facility] | MD Brea [address] | | | | | PRIMARY CARE [address] | [address] | | | | | [address] | [place] [address] | | | | | [place], [place] | [phone] | | | | | [address] | | | | | | [phone] | | | +--------+ + + + [...] | | | | | | [place] [address] | | | | | | [phone] | | | | | | | | +--------+ + + + + documented as of this encounter Visit Diagnoses Not on filedocumented in this encounter"
--- OUTSIDE RECORDS SUMMARY | ~2020-06-15 | XMS | Encounter Summary ---
Demographics + + + | Address | [address] | | | [place] [address] | + + + | Home Phone [...] + +------+ + | Care Loss Prevention Research Engineer Name | Role | [...] [address] | | | | | [place], | [place], | | | | | [place] [address] | [place] [address] | | | | | [phone] | [phone] | | | | | | | [...] TO JUDITH LINCOLN MD AT FAX NUMBER [phone]: REFERRAL DEMOGRAPHICS CHART NOTES 10-23-14, 06-25-14 LABS [id number] signed by Briseida Shaye Martino at 10/26/2014 [...] | | | | | | [place] [address] | | | | | | [phone] | | | | | | | | +--------+ + + + + documented as of this encounter Visit Diagnoses Not on filedocumented in this encounter"
--- OUTSIDE RECORDS SUMMARY | ~2020-06-15 | XMS | Encounter Summary ---
Demographics + + + | Address | [address] | | | [place] [address] | + + + | Home Phone [...] Providers + +------+ + | Care Second Worker Name | Role | Phone | [...] | | | | [address] | [place] [address] | | | | | | [place], [place] | Phone: | | | | | | [address] | [phone] | | | | | | Phone: | Fax: | | | | | | [phone] | [phone] | | | | | | Fax: | | | | | | | [phone] | | + + + + + + + Reason for Visit + + + | Reason | Comments | + + + | Annual Exam | | + + + Encounter Details +--------+---------+ + + + | Date | Type | Department | Care Team | Description | +--------+---------+ + + + | 01/11/ | Office | [facility] | Kirk French | Irritable bowel | | 2020 | Visit | [facility] | MD Bre[address] | syndrome, | | | | PRIMARY CARE [address] | unspecified type | | | | [address] | [place] [address] | (Primary Dx); | | | | [place], [place] | [phone] | Chronic pain | | | | [address] | | syndrome; Smoker; | | | | [phone] | | Fatigue, unspecified | | | [...] PLT 169 06/02/2019 No results found for: MFYPRFVZ21 No results found for: FOLATE No results [...] Plan and Recommendations: 1. [facility] in [place] for stool studies as outlined above 2. If negative and symptoms persist, recommend capsule endoscopy (this could be completed b y local steel plate caulker or he could return to [facility] for this test) 3. Nortryptiline 25mg q HS with instruction to titrate to 50mg q HS after 2 weeks if tolera kevin Follow-Up: with local steel plate caulker Counseling Time: I spent a total of 35 minutes with this patient, of which greater than 50% of the time was spent in counseling. Specific issues that were discussed included a review of the disease, diagnostic tools that help in our management plans for the patient's chronic diarrhea, abdominal cramping and weight loss and goals for treatment. Bridgette Rios MD Computer Numerical Control Operator Gastroenterology Many co and concerns: Co bleeding Co weak Co tired Co diarrhea Co cramps Co weight changes Co 14 stool in 2 hours this AM Took 8 imodium and 2 lomotil Not taking nortriptyline as prescribed by his GI Also wants a script for hemorrhoids Pending pill endoscopy and colonoscopy May be interested in [place] if no results States was down 210# now 267 Co bedridden and can't leave the house Co incontinence States many ER visits, once a week in [place] with IVF and dilaudid Conc re ppm Conc re r shoulder tkr and need for mri Issues with Klonopin Was arrested for DUI, self dc 08/14, had difficult withdrawal ofr 2 weeks Walks daily now for stress and exercise 1-5 miles a day Plan: ASSESSMENT AND PLAN: 1. Approximately 40 minutes of time on this gentleman's case [id number], a lot of it was reviewing outside [...] atypica l. Followed by Dr. Rios at [facility]. I reviewed her notes [...] | | | | | | [place] [address] | | | | | | [phone] | | | | | | | | +--------+ + + + + + + +--------+ + + | Name | Type | Priori | Associated Diagnoses | Order Schedule | | | | ty | | | + + +--------+ + + | Ambulatory Referral | Outpatient | Routin | Chronic pain | Ordered: 01/11/2020 | | to [facility] | Referral | e | syndrome [...] care Routine general medical examination at a [facility] | | facility | + + | [...]
--- OUTSIDE RECORDS SUMMARY | ~2020-06-15 | XMS | Encounter Summary ---
Demographics + + + | Address | [address] | | | [place] [address] | + + + | Home Phone [...] Team Providers + +------+ + | Care Ingot Supervisor Name | Role | Phone | [...] [address] | | | | | | [place], [place] | (Fax) | | | | | [address] | | | | | | [phone] | | | +--------+ + + + [...] | | | | | | [place] [address] | | | | | | [phone] | | | | | | | | +--------+ + + + + documented as of this encounter Visit Diagnoses Not on filedocumented in this encounter"
--- OUTSIDE RECORDS SUMMARY | ~2020-06-15 | XMS | Encounter Summary ---
Demographics + + + | Address | [address] | | | [place] [address] | + + + | Home Phone [...] Providers + +------+ + | Care Design Coordinator Name | Role | Phone [...] unspecified | [address] | | | | | type | [address] | [place], | | | | | Procedures | [place], | [place] | | | | | [place] | [place] [address] | [address] | | | | | Stress Test | Phone: | Phone: | | | | | (Vasodilator | [phone] | [phone] | | | | | ) CHG | Fax: | Fax: | | | | | MYOCARDIAL | [phone] | [phone] | | | | | SPECT | [...] unspecified | [address] | [address] | | | | | type | [address] | [place], | | | | | Procedures | [place], | [place] | | | | | [place] | [place] [address] | [address] | | | | | Stress Test | Phone: | Phone: | | | | | (Vasodilator | [phone] | [phone] | | | | | ) CHG | Fax: | Fax: | | | | | MYOCARDIAL | [phone] | [phone] | | | | | SPECT | [...] | 07/21/ | Hospital | [facility] | Daljit Singletary, | Chest pain, | | 2018 | Encounter | MED CTR NUCLEAR | MD [address] | unspecified type | | | | MEDICINE [address] [place], | | | | | [place], | [place] [address] | | | | | [place] [address] | [phone] | | | | | [phone] | | | | | | | City Comptroller[place]avel | | +--------+ + + + + [...] + + + +---------+ + + | Golden-3 Fatty | CAPS, one capsule by | [...] | 2019 | Visit | | Janeen, JEWEL STAKER [address] | | | | | | [place], | | | | | | [place] [address] | | | | | | [phone] | | | | | | | [...] | | | | | Starting [facility] 07/21/18 at 0822, For | | | | | | | 1 dose, Nuclear Medicine | | | | | | + +-------+ + +---+---+ +---+---+ | | | +---+---+ documented in this encounter"
--- OUTSIDE RECORDS SUMMARY | ~2020-06-15 | XMS | Encounter Summary ---
Demographics + + + | Address | [address] | | | [place] [address] | + + + | Home Phone [...] Providers + +------+ + | Care Alarm Security Or Surveillance Monitor Name | Role | Phone | [...] + + | 08/24/ | Office | [facility] | [place], | Ascending thoracic | | 2018 | Visit | CARDIOLOGY [address] | [place] [place] [address] | aortic aneurysm | | | | [place], | [place], | ([facility]) (Primary Dx); | | | | [place] [address] | [place] [address] | Syncope, unspecified | | | | [phone] | [phone] | syncope type; | | | | [...] 3RD DOSE, CALL 911 100 tablet 3 [place]-3 Fatty Acids (SALMON OIL-1000 PO) CAPS, one [...] now present Confirmed by ANGELA MARADIAGA MD ([id number]) on 07/28/2018 6:03:35 AM LAB RESULTS reviewed [...] PLTEX 157 04/11/2018 I reviewed records from [facility] for emergency department visit o n 07/27/2018 [...] to go back in 3 days to [place] for an attempt of ablation under [...] He is in class II of the [employer] f unctional class. There are [...] subsided. 2. Non-critical Coronary artery disease involving [place] coronary artery of [place] heart [facility] angina pectoris: A. Normal exercise sestamibi stress test on 05/25/09. LVEF by [facility] ed SPECT was 53%. B. [...] this chart may have been created with [employer] voice recognition software. Occasi onal wrong-word or [...] W | | | | | | [place], | | | | | | [place] [address] | | | | | | [phone] | | | | | | | [...]
--- OUTSIDE RECORDS SUMMARY | ~2020-06-15 | XMS | Encounter Summary ---
Demographics + + + | Address | [address] | | | [place] [address] | + + + | Home Phone [...] Providers + +------+ + | Care Journeyman Electrician Pv Installer Name | Role | Phone | [...] | | | | | | [address] [place], [place] | | | | | | [address] | | | | | | [phone] | | | +--------+ + + + [...] | | | | | | [place] [address] | | | | | | [phone] | | | | | | | | +--------+ + + + + documented as of this encounter Visit Diagnoses Not on filedocumented in this encounter"
--- OUTSIDE RECORDS SUMMARY | ~2020-06-15 | XMS | Encounter Summary ---
Demographics + + + | Address | [address] [place] [address] CALEB LOZANO | | | [place] [address] | + + + | Home Phone [...] [place] | | | | | [address] | | + + + + + Care Team Providers + +------+ + | Care Drawer Upfitter Name | Role | Phone | + [...] Chest pain | Farooq Almaguer, | [address] | | | | | Bradycardia | DO [address] | | | | | Procedures | Yao Booth | [facility] | | | | | | [facility] | Health and | | | | | TRANSTHORACI | [facility] [place] | Healing, | | | | | C | [address] | Building 1 | | | | | ECHOCARDIOGR | Phone: | [place], [place] | | | | | AM, ADULT | [phone] | [address] | | | | | | Fax: | Phone: | | | | | | [phone] | [phone] | +--------+--------+ + + + + Encounter Details +--------+ + + + + | Date | Type | Department | Care Team | Description | +--------+ + + + + | 02/03/ | Hospital | Cardiac | | | | 2010 | Encounter | Non-Invasive Testing | | | | | | at [facility] [address] | | | | | | [facility] for | | | | | | Health and Healing, | | | | | | Building 1 | | | | | | [place], [place] | | | | | | [address] | | | | | | [phone] | | | +--------+ + + + [...]
--- OUTSIDE RECORDS SUMMARY | ~2020-06-15 | XMS | Encounter Summary ---
Demographics + + + | Address | [address] [place] [address] [address] LOZANO | | | [place] [address] | + + + | Home Phone [...] [place] | | | | | [address] | | + + + + + Care Team Providers + +------+ + | Care Elder Counselor Name | Role | Phone | [...] | | | | | Unintentiona | [address] | | | | | | l weight | Ave | | | | | | loss | [facility] [place] | | | | | | Abdominal | [address] | | | | | | cramping | Phone: | | | | | | Chronic | [phone] | | | | | | diarrhea | Fax: | | | | | | Rectal | [phone] | | | | | | bleeding [...] 2020 | | Center at [facility] [address] | MD [address] | | | | | [address] [place] | [facility] [place] | | | | | for Health and | [address] | | | | | Healing, Building 2 | [phone] | | | | | [facility] [place] | | | | | | [address] | | | | | | [phone] | | | +--------+ + + + [...]
--- OUTSIDE RECORDS SUMMARY | ~2020-06-15 | XMS | Encounter Summary ---
Demographics + + + | Address | [address] [place] [address] [address] LOZANO | | | [place] [address] | + + + | Home Phone | | + + + | Preferred Language | Unknown | + + + | Marital Status | | + + + | Islam Affiliation | Unknown | + + + [...] [place] | | | | | [address] | | + + + + + Care Team Providers + +------+ + | Care Home Day Care Provider Name | Role | [...] | 2019 | | Center at [facility] | MD [address] | | | | | [address] | [place], [place] | | | | | [facility] and | [address] | | | | | [facility] 2 | [phone] | | | | | [place], [place] | | | | | | [address] | | | | | | [phone] | | | +--------+ + + + [...]
--- OUTSIDE RECORDS SUMMARY | ~2020-06-15 | XMS | Encounter Summary ---
Demographics + + + | Address | [address] | | | [place] [address] | + + + | Home Phone [...] Team Providers + +------+ + | Care Answerer Name | Role | Phone | + +------+ + PCP | Unavailable | + +------+ + Encounter Details +--------+ + + + + | Date | Type | Department | Care Team | Description | +--------+ + + + + | 05/24/ | Hospital | [facility] | Chi Fang | Unspecified Chest | | 2008 - | Encounter | MEDICAL CENTER | MD Kelsey [address] | Pain | | | | CLINICAL DECISION | CHRISTOPH HERNANDEZ | | | 05/25/ | | [address] | [address] | | | 2008 | | [place], [place] | [phone] | | | | | [address] | | | | | | [phone] | | | +--------+ + + + [...] | | | | | | [place], | | | | | | [place] [address] | | | | | | [phone] | | | | | | | [...] Performed At | + + + | [id number] | | | Page 1 RADIOLOGY | | | [facility] [address]/ | | | [facility] | | | CENTER NAME: [place] [address] | | | | | | | | | DATE OF : 1960 ORDER NUMBER: | | | [id number] EXAM DATE/TIME: 05/25/2009 08:00 A ORDERING PHYSICIAN: | | | CHI FANG ORDER DETAIL: [id number] / / [facility] EXAM | | | DESCRIPTION: NM [...] | | administration of 14.9 mCi of [id number]-guwqvmt Myoview. Stress | | | images postinjection [...] | | | images. Prone images demonstrate latter-day of the inferior wall | | | [...] | | A P | | | [id number]/ cc: MD FEMI FOSS, | | | MD AMY SULLIVAN DO | | + + + + + | Procedure Note | + + | Kalpesh Brown Conversion - 07/17/2019 2:13 AM PDT | | [id number] Page 1 | | RADIOLOGY CDU 44540/ | | OPO | | [facility] NAME: [address] | | [place] [address] | | | | DATE OF : 1960 | | | | ORDER NUMBER: [id number] | | EXAM DATE/TIME: 05/25/2009 08:00 A [...] administration of 14.9 mCi | | of kpsszadcdm-29o-crsegip Myoview. Stress images postinjection of 47.7 | [...] | | | | Prone images demonstrate latter-day of the inferior wall nicely. | | [...] | A | | P | | [id number]/[id number]/ | | cc: ANGELA MARADIAGA MD | | FEMI MARIE MD | | CHI FANG MD | | AMY BANEGAS DO | + + ECHO Complete (05/25/2009 7:50 AM PDT) + + | Specimen | + + | | + + + + + | Narrative | Performed At | + + + | [id number] | | | Page 1 ECHO [facility] NAME: | | | [place] [address] MEDICAL RECORD #: | | | [id number] | | | DATE OF : 1960 ORDER | | | NUMBER: [id number] EXAM DATE/TIME: 05/25/2009 07:34 PERFORMING | | [...] Excursion: | | | 1.89 cm E-F Oktibbeha: 0.08 m/s HR: 43.51 BPM AV maxP.11 [...] | | | 0.33 m/s TV Dec Oktibbeha: 1.73 m/s2 TV Dec Time: 344.24 ms TV | | | E Bravo: 0.59 m/s TV E/A Ratio: 1.80 TV maxP.40 mmHg TV | | | meanP.44 mmHg TV Vmax: 0.59 m/s TV Vmean: 0.30 m/s TV | | | VTI: 22.88 cm Public Opinion Survey Taker: ANTHONY Authenticated by: Edwardo Tee | | | Carlos WINKLER Report Date/Time: 05-25-2009 10:19:52 | | + + + + + | Procedure Note | + + | Kalpesh Brown - 07/17/2019 2:13 AM PDT [id number] | | [facility] NAME: [place] | | [address] : ACCOUNT #: | | [id number]: DATE OF : 1960ORDER NUMBER: | | [id number] DATE/TIME: 05/25/2009 07:34PERFORMING PHYSICIAN: Edwardo Gonzalez | [...] mlLAESV Index (A-L): 26.03 ml/m2LAAs A2C: 14.93 [id number] A-L | | A2C: 44.50 mlLALs A2C: 4.25 cmLAAs A4C: 18.42 tl2BHAXF A-L A4C: 55.79 mlLALs | | A4C: 5.16 cmAo Diam: 3.91 cmAV Cusp: 2.23 cmLA Diam: 3.79 cmLA/Ao: 0.96%FS: | | 43.37 %EDV(Teich): 146.19 mlEF(Teich): 73.99 %ESV(Teich): 38.01 mlIVSd: 1.57 | | cmIVSs: 1.79 cmLVIDd: 5.48 cmLVIDs: 3.10 cmLVPWd: 1.32 cmLVPWs: 1.79 | | cmSV(Teich): 108.18 mlD-E Excursion: 1.89 cmE-F Oktibbeha: 0.08 m/sHR: 43.51 BPMAV | | maxP.11 mmHgAV meanP.33 mmHgAV Vmax: 1.74 m/Zabrina Vmean: 1.06 m/Zabrina VTI: | | 35.51 cmAVA Vmax: 2.77 cm2AVA (VTI): 2.54 eo5ZRIX Dopp: 3.00 l/ruse3BMJY Dopp: | | 6.33 l/minHR: 70.25 BPMLVOT maxP.78 mmHgLVOT meanP.02 mmHgLVSI Dopp: | | 42.76 ml/m2LVSV Dopp: 90.23 mlLVOT Vmax: 1.30 m/sLVOT Vmean: 0.80 m/sLVOT VTI: | | 24.35 cmMV A Bravo: 0.70 m/sMV DecT: 242.46 msMV E Bravo: 0.91 m/sMV E/A Ratio: | | 1.31MV maxP.40 mmHgMV meanP.82 mmHgMV Vmax: 0.92 m/sMV Vmean: 0.37 m/sMV | | VTI: 26.47 cmMVA (VTI): 3.40 un8Jjlvjd e': 0.08 m/sSeptal E/e': 11.24HR: | | 60.55 BPMPV maxP.04 mmHgPV meanP.39 mmHgPV Vmax: 0.87 m/sPV Vmean: 0.55 | | m/sPV VTI: 19.09 cmRAP: 5 mmHgRVSP: 21.72 mmHgTR maxP.72 mmHgTR Vmax: | | 2.04 m/sTV A Bravo: 0.33 m/sTV Dec Oktibbeha: 1.73 m/s2TV Dec Time: 344.24 msTV E Bravo: | | 0.59 m/sTV E/A Ratio: 1.80TV maxP.40 mmHgTV meanP.44 mmHgTV Vmax: 0.59 | | m/sTV Vmean: 0.30 m/sTV VTI: 22.88 cm Public Opinion Survey Taker: EMERYuthenticated by: Edwardo Tee | | Carlos [...] | |D-E Excursion: 1.89 cm | |E-F Oktibbeha: 0.08 m/s | |HR: 43.51 BPM | [...] A Bravo: 0.33 m/s | |TV Dec Oktibbeha: 1.73 m/s2 | |TV Dec Time: 344.24 ms | |TV E Bravo: 0.59 m/s | |TV E/A Ratio: 1.80 | |TV maxP.40 mmHg | |TV meanP.44 mmHg | |TV Vmax: 0.59 m/s | |TV Vmean: 0.30 m/s | |TV VTI: 22.88 cm | | | |Public Opinion Survey Taker: KVW | |Authenticated by: Edwardo Gonzalez MD | |Report Date/Time: 05-25-2009 10:19:52 | + + CT Head wo Contrast (05/24/2009 12:58 PM PDT) + + | Specimen | + + | | + + + + + | Narrative | Performed At | + + + | [id number] | | | Page 1 RADIOLOGY | | | CDU 12228/ | | | OPO [facility] | | | CENTER NAME: [place] [address] | | | | | | | | | DATE OF : 1960 ORDER NUMBER: | | | [id number] EXAM DATE/TIME: 05/24/2009 12:47 P ORDERING PHYSICIAN: [...] | | asymmetrically dense vessel about the point hope ira of Pearson. No | | | hydrocephalus. [...] 08:45 P P P | | | [facility]/tp/[id number]/ cc: MD ANGELA AVENDAÑO MD | | | MD AMY HAM, DO | | + + + + + | Procedure Note | + + | Kalpesh Brown Conversion - 07/17/2019 2:13 AM PDT | | [id number] Page 1 | | RADIOLOGY CDU 28772/ | | OPO | | [facility] NAME: [address] | | [place] [address] | | | | DATE OF : 1960 | | | | ORDER NUMBER: [id number] | | EXAM DATE/TIME: 05/24/2009 12:47 P [...] is no asymmetrically dense vessel about the point hope ira of Pearson. No | | hydrocephalus. Some [...] | P | | P | | TSG/tp/[id number]/ | | cc: VINAY HILL MD | | ANGELA MARADIAGA MD | | FEMI MARIE MD | | AMY BANEGAS DO | + + XR Chest 2 Vws (05/24/2009 11:31 AM PDT) + + | Specimen | + + | | + + + + + | Narrative | Performed At | + + + | [id number] | | | Page 1 RADIOLOGY | | | [facility] [address]/ | | | OPO [facility] | | | CENTER [place]: [place] [address] | | | | | | | | | DATE OF : 1960 ORDER NUMBER: | | | [id number] EXAM DATE/TIME: 05/24/2009 11:19 A ORDERING PHYSICIAN: [...] DT: | | | 05/24/2009 05:38 P [id number]/ cc: VINAY HILL MD | | | MD FEMI FOSS MD JOSEPH | | | P SOLDO, DO | | + + + + + | Procedure Note | + + | Kalpesh Brown Conversion - 07/17/2019 2:13 AM PDT | | [id number] Page 1 | | RADIOLOGY CDU 32884/ | | OPO | | [facility] NAME: [address] | | [place] [address] | | | | DATE OF : 1960 | | | | ORDER NUMBER: [id number] | | EXAM DATE/TIME: 05/24/2009 11:19 A [...] | P | | P | | [facility]//[id number]/ | | cc: VINAY HILL MD | | ANGELA MARADIAGA MD | | FEMI MARIE MD | | AMY BANEGAS DO | + + documented in this encounter Visit Diagnoses + + | Diagnosis | + + | Chest pain, unspecified | + + documented in this encounter"
--- OUTSIDE RECORDS SUMMARY | ~2020-06-15 | XMS | Encounter Summary ---
Demographics + + + | Address | [address] | | | [place] [address] | + + + | Home Phone [...] Providers + +------+ + | Care Forest Biometrics Professor Name | Role | Phone | [...] + | 01/02/ | Telephone | [facility] | Daljit Singletary, | Other (chest pain) | | 2019 | | CARDIOLOGY [address] | MD [address] [place] | | | | | [place], | [place], | | | | | [place] [address] | [place] [address] | | | | | [phone] | [phone] | | | | | | | [...] evaluated. He re fused to go to [facility], will come to [facility]. He stated he would drive himself. I ca utioned him not too. He refused and will come to [facility] ..................................... .....Mariana Valentine RN on 01/02/19 [...] | | | | | | [place] [address] | | | | | | [phone] | | | | | | | | +--------+ + + + + documented as of this encounter Visit Diagnoses Not on filedocumented in this encounter"
--- OUTSIDE RECORDS SUMMARY | ~2020-06-15 | XMS | Encounter Summary ---
Demographics + + + | Address | [address] | | | [place] [address] | + + + | Home Phone [...] + + | 07/13/ | Telephone | [facility] | Kirk French | Referral Question | | 2019 | | [facility] | MD Eva Guidry | | | | | PRIMARY CARE [address] | | | | | [address] | [place] [address] | | | | | [place], [place] | [phone] | | | | | [address] | | | | | | [phone] | | | +--------+ + + + [...] Miscellaneous Notes Telephone Encounter - Geri Bear Underwriting Account Representative - 07/14/2019 4:06 PM PDTCalled and left VM for return call. Electronically signed by Geri Bear Underwriting Account Representative at 07/14 4:07 PM PDTTelephone Encounter - Geri Bear Underwriting Account Representative - 07/13/2019 5:03 PM PDT----- Message from Shelley Hess sent at 07/12/2019 16:52 PDT ----- Contact: Patient Patient called and has questions regarding an order for Cardio and Pulmonary Rehab at [facility]. He received a call from them today and has no idea where this came fr om. Would like a call back. He also wanted to let you know he had a total right shoulder r edone 06/13/19. Caller: Amilcar Relationship to patient: Patient Please call back at [phone] Can a Detailed VM be left on [...] | | | | | | [place] [address] | | | | | | [phone] | | | | | | | | +--------+ + + + + documented as of this encounter Visit Diagnoses Not on filedocumented in this encounter"
--- OUTSIDE RECORDS SUMMARY | ~2020-06-15 | XMS | Encounter Summary ---
Demographics + + + | Address | [address] | | | [place] [address] | + + + | Home Phone [...] +------+ + | Care Health And Safety Trainer Name | Role | Phone | [...] | MD [address] | [address] | | | | | hypertension | [address] | [place], | | | | | Sick sinus | [address] | [place] | | | | | syndrome | [place] | [address] | | | | | (HCC) | [address] | Phone: | | | | | Ventricular | Phone: | [phone] | | | | | premature | [phone] | Fax: | | | | | depolarizati | Fax: | [phone] | | | | | on | [phone] | | | | | | Tachycardia, | | | | | | | unspecified | | | | | | | | | | | | | | Atherosclero | | | | | | | tic heart | | | | | | | disease of | | | | | | | e[place] | | | | | | | [...] + | 05/01/ | Procedure | [facility] | Margarito Jaeger | Pacemaker | | 2020 | visit | CARDIOLOGY [address] | MD Fabrice [address] | reprogramming/check | | | | [place], | [place] | DO NOT DELETE | | | | [place] [address] | [place] [address] | (Primary Dx); | | | | [phone] | [phone] | Pacemaker; | | | | | [...] monitoring. Device interrogation due in office at [facility]. documented in t his encounter Plan of [...] | | | | | | [place] [address] | | | | | | [phone] | | | | | | | [...] | monitoring.Device interrogation due in office at [facility]. | | |Data collected by Shabana Lama [...] received | | |error codes. Referred to [employer] Stay Connected line. Monthly | | |remote monitoring. | | |Device interrogation due in office at [facility]. | | | | | + + [...] and has received error codes. Referred to [facility] Stay | | Connected line. Monthly remote monitoring.Device interrogation due in office at [facility]. | |Underlying rhythm: Sinus rhythm 72-75 beats. [...] has received error codes. Referred to [facility] Stay Connected line. Monthly remote monitoring. | |Device interrogation due in office at [facility]. | + + + +---------+ + + [...]
--- OUTSIDE RECORDS SUMMARY | ~2020-06-15 | XMS | Encounter Summary ---
Demographics + + + | Address | [address] | | | [place] [address] | + + + | Home Phone [...] Providers + +------+ + | Care Freelance Web Designer Name | Role | Phone [...] [place] | | | | | | [address] | | | | | | [phone] | | | | | | | [...] | | | | | | [place] [address] | | | | | | [phone] | | | | | | | | +--------+ + + + + documented as of this encounter Visit Diagnoses Not on filedocumented in this encounter"
--- OUTSIDE RECORDS SUMMARY | ~2020-06-15 | XMS | Encounter Summary ---
Demographics + + + | Address | [address] | | | [place] [address] | + + + | Home Phone [...] Providers + +------+ + | Care Catalog Librarian Name | Role | Phone | [...] W | | | | | [place], | [place], | | | | | [place] [address] | [place] [address] | | | | | [phone] | [phone] | | | | | | | [...] | | | | | | [place] [address] | | | | | | [phone] | | | | | | | [...]
--- OUTSIDE RECORDS SUMMARY | ~2020-06-15 | XMS | Encounter Summary ---
Demographics + + + | Address | [address] [place] [address] CALEB LOZANO | | | [place] [address] | + + + | Home Phone [...] [place] | | | | | [address] | | + + + + + Care Team Providers + +------+ + | Care Cereal Miller Name | Role | Phone | [...] | | 2020 | | Center at [facility] [address] | MD [address] | | | | | [address] [place] | [place], [place] | | | | | for Health and | [address] | | | | | [facility] 2 | [phone] | | | | | [place], [place] | | | | | | [address] | | | | | | [phone] | | | +--------+ + + + [...]
--- OUTSIDE RECORDS SUMMARY | ~2020-06-15 | XMS | Encounter Summary ---
Demographics + + + | Address | [address] | | | [place] [address] | + + + | Home Phone [...] Providers + +------+ + | Care Under Presser Name | Role | Phone | + +------+ + | Kirk French MD | PCP | | + +------+ + Encounter Details +--------+ + + + + | Date | Type | Department | Care Team | Description | +--------+ + + + + | 07/21/ | [facility] | [facility] | Daljit Singletary, | Palpitations; | | 2018 | Encounter | MED CTR NUCLEAR | MD [address] | Presence of | | | | MEDICINE [address] | [place], | permanent cardiac | | | | [place], | [place] [address] | pacemaker; | | | | [place] [address] | [phone] | Sinoatrial node | | | | [phone] | | dysfunction (HCC) | +--------+ + [...] + + + +---------+ + + | Barre-3 Fatty | CAPS, one capsule by | [...] W | | | | | | [place], | | | | | | [place] [address] | | | | | | [phone] | | | | | | | [...] 08/25/2018 13:12 Wireless even study from | CHRISTOPHAZ SHERLYN | | 07/21 until 08/22/2018. Baseline [...]
--- OUTSIDE RECORDS SUMMARY | ~2020-06-15 | XMS | Encounter Summary ---
Demographics + + + | Address | [address] | | | [place] [address] | + + + | Home Phone [...] Providers + +------+ + | Care Scrub Tech Name | Role | Phone | [...] | CARDIOLOGY [address] | MD [address] [place] | monitor | | | | [place], | [place], | disconnected) | | | | [place] [address] | [place] [address] | | | | | [phone] | [phone] | | | | | | | [...] other location s without success. I called [employer] and explained the situation. They recommend using an ethernet adapter as long as the patient has Wii Fi. Verified with patient that he does have internet and also verified his mailing address. [employer] will ship out the new equipment and [...] not connecting. Rec eived an e-mail from [employer] that they have been unable to reach [...] | | | | | | [place] [address] | | | | | | [phone] | | | | | | | | +--------+ + + + + documented as of this encounter Visit Diagnoses Not on filedocumented in this encounter"
--- OUTSIDE RECORDS SUMMARY | ~2020-06-15 | XMS | Encounter Summary ---
Demographics + + + | Address | [address] | | | [place] [address] | + + + | Home Phone [...] | about palpitations) | | | | [place], | [place], | | | | | [place] [address] | [place] [address] | | | | | [phone] | [phone] | | | | | | | [...] | | | | | | [place] [address] | | | | | | [phone] | | | | | | | | +--------+ + + + + documented as of this encounter Visit Diagnoses Not on filedocumented in this encounter"
--- OUTSIDE RECORDS SUMMARY | ~2020-06-15 | XMS | Encounter Summary ---
Demographics + + + | Address | [address] | | | [place] [address] | + + + | Home Phone [...] + +------+ + | Care Cut Off Machine Helper Name | Role | Phone | [...] [address] | | | | | [place], | [place], | | | | | [place] [address] | [place] [address] | | | | | [phone] | | | | | | | [...] | | | | | | [place] [address] | | | | | | [phone] | | | | | | | | +--------+ + + + + documented as of this encounter Visit Diagnoses Not on filedocumented in this encounter"
--- OUTSIDE RECORDS SUMMARY | ~2020-06-15 | XMS | Encounter Summary ---
Demographics + + + | Address | [address] | | | [place] [address] | + + + | Home Phone [...] + + | 06/04/ | Hospital | [facility] | Sariah, | Cervical spinal | | 2016 | Encounter | MED CTR XRAY [address] | Marietta Mason, FOILING MACHINE OPERATOR [address] | stenosis | | | | [place] | [address] | | | | | [place] [address] | [place] [address] | | | | | [phone] | [phone] | | | | | | | [...] + + + +---------+ + + | Hamilton-3 Fatty | CAPS, one capsule by | [...] W | | | | | | [place], | | | | | | [place] [address] | | | | | | [phone] | | | | | | | [...] Other | | 10 mL, Intradermal, ONCE, Atlia | | 16 10:30 | | | (Comment | | 06/04/16 at 1030, For 1 dose | | AM PDT | | | ) | + +-------+ +--------+---+ + +---+---+ | | | +---+---+ documented in this encounter"
--- OUTSIDE RECORDS SUMMARY | ~2020-06-15 | XMS | Encounter Summary ---
Demographics + + + | Address | [address] | | | [place] [address] | + + + | Home Phone [...] Providers + +------+ + | Care Building Rental Superintendent Name | Role | Phone | + +------+ + PCP | Unavailable | + +------+ + Encounter Details +--------+ + + + + | Date | Type | Department | Care Team | Description | +--------+ + + + + | 09/08/ | [facility] | [facility] | Naresh Mckeon | | | 1998 | Encounter | MED CTR SLEEP | MD Chaya [address] | | | | | CENTER [address] [place] | [place] | | | | | [place] | [place] [address] | | | | | [address] | [phone] | | | | | [phone] | | | +--------+ + + + [...] | | | | | | [place] [address] | | | | | | [phone] | | | | | | | | +--------+ + + + + documented as of this encounter Visit Diagnoses Not on filedocumented in this encounter"
--- OUTSIDE RECORDS SUMMARY | ~2020-06-15 | XMS | Encounter Summary ---
Demographics + + + | Address | [address] | | | [place] [address] | + + + | Home Phone [...] Team Providers + +------+ + | Care Paster Supervisor Name | Role | Phone | [...] | CARDIOLOGY [address] | [address] | reprogramming/check | | | | [place], | [facility], | DO NOT DELETE | | | | [place] [address] | [place] [address] | (Primary Dx); | | | | [phone] | [phone] | Pacemaker - | | | | [...] | | | | | | [place] [address] | | | | | | [phone] | | | | | | | [...]
--- OUTSIDE RECORDS SUMMARY | ~2020-06-15 | XMS | Encounter Summary ---
Demographics + + + | Address | [address] | | | [place] [address] | + + + | Home Phone [...] Providers + +------+ + | Care Acid Operator Name | Role | Phone | [...] + | 09/01/ | Telephone | [facility] | [place], | Appointment | | 2016 | | CARDIOLOGY [address] | [place] [address] | (Reschedule) | | | | [place], | [place], | | | | | [place] [address] | [place] [address] | | | | | [phone] | [phone] | | | | | | | [...] | | | | | | [place] [address] | | | | | | [phone] | | | | | | | | +--------+ + + + + documented as of this encounter Visit Diagnoses Not on filedocumented in this encounter"
--- OUTSIDE RECORDS SUMMARY | ~2020-06-15 | XMS | Encounter Summary ---
Demographics + + + | Address | [address] | | | [place] [address] | + + + | Home Phone [...] Providers + +------+ + | Care Supervisor Livestock Yard Name | Role | Phone | [...] + | 11/02/ | Telephone | [facility] | Daljit Singletary, | Other | | 2015 | | [facility] [address] | [address] [place] | | | | | [place], | [place], | | | | | [place] [address] | [place] [address] | | | | | [phone] | [phone] | | | | | | | [...] us know so we can check with all purpose clerk to confirm and we will have learned [...] | | | | | | [place] [address] | | | | | | [phone] | | | | | | | | +--------+ + + + + documented as of this encounter Visit Diagnoses Not on filedocumented in this encounter"
--- OUTSIDE RECORDS SUMMARY | ~2020-06-15 | XMS | Encounter Summary ---
Demographics + + + | Address | [address] | | | [place] [address] | + + + | Home Phone [...] Providers + +------+ + | Care Rn Pediatric Icu Name | Role | Phone | + [...] + + | 07/27/ | Telephone | [facility] | Emmanuel Daniel MD | Medication | | 2019 | | GASTROENTEROLOGY | [address], [place] | Recommendations | | | | [address] [place] | [address] [place], [place] | | | | | [address] [place], [place] | [address] | | | | | [address] | | | | | | [phone] | | | +--------+ + + + [...] | | | | | | [place] [address] | | | | | | [phone] | | | | | | | | +--------+ + + + + documented as of this encounter Visit Diagnoses Not on filedocumented in this encounter"
--- OUTSIDE RECORDS SUMMARY | ~2020-06-15 | XMS | Encounter Summary ---
Demographics + + + | Address | [address] | | | [place] [address] | + + + | Home Phone [...] Providers + +------+ + | Care Supervisor Marble Name | Role | Phone | + [...] [address] | | | | | [place], | [place], | | | | | [place] [address] | [place] [address] | | | | | [phone] | [phone] | | | | | | | [...] | | | | | | [place] [address] | | | | | | [phone] | | | | | | | | +--------+ + + + + documented as of this encounter Visit Diagnoses Not on filedocumented in this encounter"
--- OUTSIDE RECORDS SUMMARY | ~2020-06-15 | XMS | Encounter Summary ---
Demographics + + + | Address | [address] | | | [place] [address] | + + + | Home Phone [...] Providers + +------+ + | Care Drier Feeder Name | Role | Phone | [...] loss | [address] | [address], | | | | | Anxiety | [address] [place] | [place] [address] | | | | | disorder, | [address] | [place], | | | | | unspecified | [place], [place] | [place] [address] | | | | | Chronic | [address] | Phone: | | | | | pain | Phone: | [phone] | | | | | syndrome | [phone] | Fax: | | | | | Procedures | Fax: | [phone] | | | | | office visit | [phone] | | +--------+--------+ + + + + Encounter Details +--------+---------+ + + + | Date | Type | Department | Care Team | Description | +--------+---------+ + + + | 12/26/ | Office | [facility] | Emmanuel Daniel MD | Functional diarrhea | | 2019 | Visit | GASTROENTEROLOGY | [address], [place] | (Primary Dx); | | | | [address] [place] | [address] [place], [place] | Gastrointestinal | | | | [address] [place], [place] | [address] | hemorrhage | | | | [address] | | associated with | | | | [phone] | | anorectal source; | | | [...] of diarrhea since serving in the in [employer] [employer] [facility] [facility]. His last episodes of diarrhea [...] done through [facility] November s howed mild diverticulosis [...] | 2019 | Visit | | Janeen, CONTINUOUS PICKLING LINE PICKLER HELPER [address] | | | | | | [place], | | | | | | [place] [address] | | | | | | [phone] | | | | | | | [...]
--- OUTSIDE RECORDS SUMMARY | ~2020-06-15 | XMS | Encounter Summary ---
Demographics + + + | Address | [address] | | | [place] [address] | + + + | Home Phone [...] Providers + +------+ + | Care Government Clerk Name | Role | Phone | [...] visit | CARDIOLOGY [address] | [address] [place] | reprogramming/check | | | | [place], | [place], | DO NOT DELETE | | | | [place] [address] | [place] [address] | (Primary Dx); | | | | [phone] | [phone] | Sinoatrial node | | | | [...] | | | | | | [place] [address] | | | | | | [phone] | | | | | | | [...]
--- OUTSIDE RECORDS SUMMARY | ~2020-06-15 | XMS | Encounter Summary ---
Demographics + + + | Address | [address] | | | [place] [address] | + + + | Home Phone [...] + +------+ + | Care Medical Reception Specialist Name | Role | Phone | [...] [place] | | | | | [address] [place], [place] | [place] [address] | | | | | [address] | [phone] | | | | | [phone] | | | +--------+ + + + [...] after receiving a call from Johanna at [facility]; she advised pt was reluctant to [...] | | | | | | [place] [address] | | | | | | [phone] | | | | | | | | +--------+ + + + + documented as of this encounter Visit Diagnoses Not on filedocumented in this encounter"
--- OUTSIDE RECORDS SUMMARY | ~2020-06-15 | XMS | Encounter Summary ---
Demographics + + + | Address | [address] | | | [place] [address] | + + + | Home Phone [...] Providers + +------+ + | Care Senior Cyber Intelligence Analyst Name | Role | Phone [...] W | mixed | | | | [place], | [place], | | | | | [place] [address] | [place] [address] | | | | | [phone] | [phone] | | | | | | | [...] | | | | | | [place] [address] | | | | | | [phone] | | | | | | | | +--------+ + + + + documented as of this encounter Visit Diagnoses + + | Diagnosis | + + | Hyperlipidemia, mixed Mixed hyperlipidemia | + + documented in this encounter"
--- OUTSIDE RECORDS SUMMARY | ~2020-06-15 | XMS | Encounter Summary ---
Demographics + + + | Address | [address] | | | [place] [address] | + + + | Home Phone [...] + +------+ + | Care Human Resources Admin Name | Role | Phone | + +------+ + | Kirk French MD | PCP | | + +------+ + Encounter Details +--------+ + + + + | Date | Type | Department | Care Team | Description | +--------+ + + + + | 08/29/ | [facility] | [facility] | Silvia | DVT (deep venous | | 2014 | Encounter | MED CTR ULTRASOUND | [place] [address] | thrombosis), | | | | [address] [place] | [place], | bilateral (HCC) | | | | [place], [place] | [place] [address] | | | | | [address] | [phone] | | | | | [phone] | | | +--------+ + + + [...] + + + +---------+ + + | Trimble-3 Fatty | CAPS, one capsule by | [...] | | | | | | | #[id number], exp 07/2016 | | | | | [...] | | | | | | [place] [address] | | | | | | [phone] | | | | | | | [...] DVT. COMPARISON: None. TECHNIQUE: Compression | [facility] | | sonography was performed from the groin through the popliteal fossa | [facility] | | in both lower [...] conveyed to the ordering provider, by the workers' compensation claims examiner, | | | immediately following the exam. [...] to the ordering provider, by the | |workers' compensation claims examiner, immediately following the exam. | | | | | |Dictated and Signed by: Emmanuel Gibbons MD | | Electronically signed: 08/29/2015 3:25 PM | + + + + + + + | Performing | Address | City/State/Zipcode | Phone Number | | Organization | | | | + + + + + | [facility] | [address] | [place] | [phone] | | [facility] | | [address] | | | - IMAGING | | | | + + + + + documented in this encounter Visit Diagnoses + + | Diagnosis | + + | DVT (deep venous thrombosis), bilateral | + + documented in this encounter"
--- OUTSIDE RECORDS SUMMARY | ~2020-06-15 | XMS | Encounter Summary ---
Demographics + + + | Address | [address] | | | [place] [address] | + + + | Home Phone [...] + + | 05/02/ | Telephone | [facility] [place] | [place]via, | Results | | 2020 | | CARDIOLOGY [address] | [address] [place] [address] | | | | | [place], | [place], | | | | | [place] [address] | [place] [address] | | | | | [phone] | [phone] | | | | | | | [...] RN on 05/03/20 at 11:31 AM elephone [facility] - Janeen Vega ARNP - 05/02/2020 4:58 [...] | | | | | | [place] [address] | | | | | | [phone] | | | | | | | | +--------+ + + + + documented as of this encounter Visit Diagnoses Not on filedocumented in this encounter"
--- OUTSIDE RECORDS SUMMARY | ~2020-06-15 | XMS | Encounter Summary ---
Demographics + + + | Address | [address] | | | [place] [address] | + + + | Home Phone [...] Providers + +------+ + | Care Packing Machine Tender Name | Role | Phone [...] [address] | | | | | [place], | [place], | | | | | [place] [address] | [place] [address] | | | | | [phone] | [phone] | | | | | | | [...] this encounter Miscellaneous Notes Telephone Encounter - Ugnner, Briseida Cr - 10/26/2014 9:13 AM PSTFAXED REFERRAL TO JUDITH LINCOLN MD AT FAX NUMBER [phone]: REFERRAL DEMOGRAPHICS CHART NOTES 10-23-14, 06-25-14 LABS [id number] signed by Briseida Shaye Martino at 10/26/2014 [...] | | | | | | [place] [address] | | | | | | [phone] | | | | | | | | +--------+ + + + + documented as of this encounter Visit Diagnoses Not on filedocumented in this encounter"
--- OUTSIDE RECORDS SUMMARY | ~2020-06-15 | XMS | Encounter Summary ---
Demographics + + + | Address | [address] | | | [place] [address] | + + + | Home Phone [...] Providers + +------+ + | Care Marketing Instructor Name | Role | Phone | [...] + + | 05/26/ | Emergency | [facility] | Lizbeth Green | Atypical chest pain | | 2013 | | MED CTR EMERGENCY | DO Nicole Fink | (Primary Dx); | | | | CENTER [address] | [place], [place] | Anxiety | | | | [place], [place] | [address] | | | | | [address] | | | | | | [phone] | | | +--------+ + + + [...] + + + +---------+ + + | Ambridge-3 Fatty | CAPS, one capsule by | [...] might be diffe rent from the original. [facility] Moe Sanchez Emergency Department Encounter Note [address] [place] [address] PCP:Michael Amanda [phone] CHIEF COMPLAINT Chief Complaint [...] cm he has a cardiothoracic surgeon at [facility] who is going to be following him [...] Michael Amanda DO. (As needed) Contact information: [address] [place] [address] Lizbeth Green MD 05/27/14 1004 documented in this encounter Miscellaneous Notes Plan of Care - ONBASE SCAN WAID - 05/28/2014 12:00 AM PDT D Triage [...] | | | | | | [place] [address] | | | | | | [phone] | | | | | | | [...] the uneventful IV administration of 80 mL [id number] contrast. Timing of | | contrast bolus [...] + + | Performing | Address | City/State/[facility] | Phone Number | | Organization | | | | + +---------+ + + | MISCELLANEOUS LAB | | | [phone] | + +---------+ + + | MISCELANIOUS LAB | | | [phone] | + +---------+ + + Troponin I [...] | | | | | | [employer] | | | | | [...] + | [facility] | [address] | [place] | [phone] | | [facility] | | [address] | | | - LABORATORY | | | | + + + + + | [facility] | [address] | [place], [place] | | | [facility] | | [address] [place] [address] | | | - LABORATORY | | [...] | 0.89 | 0.60 - 1.30 | [facility] | | | | | mg/dL | [facility] | | | | | | MEDICAL | | | | | | CENTER - | | | | | | LABORATORY | | + + + + + + | eGFR if not | >60Comment: GLOMERULAR | >=60 | [facility] | | | | FILTRATION | mL/min/1.73m2 | [facility] | | | BRAZ[place]IAN | RATE,ESTIMATED | | MEDICAL | | | | mL/min/1.32r1Gxct than | | CENTER - | | [...] | 9.4 | 8.3 - 10.5 | [facility] | | | | | mg/dL | [facility] | | | | | | MEDICAL [...] + | [facility] | [address] | [place] | [phone] | | [facility] | | [address] | | | - LABORATORY | | | | + + + + + | [facility] | [address] | [place], [place] | | | [facility] | | [address] | | | - [...] + | [facility] | [address] | [place] | [phone] | | [facility] | | [address] | | | - LABORATORY | | | | + + + + + | [facility] | [address] | [place], [place] | | | [facility] | | [address] [place] [address] | | | - LABORATORY | | [...]
--- OUTSIDE RECORDS SUMMARY | ~2020-06-15 | XMS | Encounter Summary ---
Demographics + + + | Address | [address] | | | [place] [address] | + + + | Home Phone [...] Team Providers + +------+ + | Care Crucible Packer Name | Role | Phone | [...] W | | | | | [place], | [place], | | | | | [place] [address] | [place] [address] | | | | | [phone] | [phone] | | | | | | | [...] | | | | | | [place] [address] | | | | | | [phone] | | | | | | | [...]
--- OUTSIDE RECORDS SUMMARY | ~2020-06-15 | XMS | Encounter Summary ---
Demographics + + + | Address | [address] | | | [place] [address] | + + + | Home Phone [...] Providers + +------+ + | Care Edge Roller Name | Role | Phone | [...] | | | | CENTER [address] | [place], [place] | (Primary Dx) | | | | [place], [place] | [address] | | | | | [address] | | | | | | [phone] | | | +--------+ + + + [...] known pacemaker that had a recent in [employer] that was working. PAST MEDICAL [facility] SURGICAL [...] 1 tablet by mouth every evening [facility] (OSTEO BI-FLEX/5-LOXIN ADVANCED PO) Take [...] [place] Check glucose as needed for hypoglycemia PRAVASTATIN [...] like he was ran over by a [employer] i. Pt took [address] over from [place].Electronically signed by MONROE Olivo at 03/2017 12:20 [...] | | | | | | [place] [address] | | | | | | [phone] | | | | | | | [...] 12 | 7 - 18 mg/dL | [facility] | | | | | | [facility] | | | | | | MEDICAL | | | | | | CENTER - | | | | | | LABORATORY | | + + + + + + | Creatinine | 0.84 | 0.60 - 1.30 | [facility] | | | | | mg/dL | [facility] | | | | | | MEDICAL | | | | | | CENTER - | | | | | | LABORATORY | | + + + + + + | eGFR if not | >60Comment: GLOMERULAR | >=60 | [facility] | | | | FILTRATION | mL/min/1.73m2 | [facility] | | | [place] | RATE,ESTIMATED | | MEDICAL | | | | mL/min/1.18m9Iyss than | | CENTER - | | [...] + | [facility] | [address] | [place] | [phone] | | [facility] | | [address] | | | - LABORATORY | | [...] | | | | ANGELA MARADIAGA MD ([id number]) | | | | | | on [...] | | | | | | [employer] | | | | | [...] [address] | [place] | [phone] | | [facility] | | [address] | | | - LABORATORY | | [...] [address] | [place] | [phone] | | [facility] | | [address] | | | - LABORATORY | | [...]
--- OUTSIDE RECORDS SUMMARY | ~2020-06-15 | XMS | Encounter Summary ---
Demographics + + + | Address | [address] | | | [place] [address] | + + + | Home Phone [...] + +------+ + | Care Silk Screen Printer Helper Name | Role | Phone | + +------+ + PCP | Unavailable | + +------+ + Encounter Details +--------+ + + + + | Date | Type | Department | Care Team | Description | +--------+ + + + + | 01/17/ | [facility] | [facility] | Jonas Ramos, | | | 2009 | Encounter | MED CTR EMERGENCY | [address] | | | | | CENTER [address] [place] | [facility] | | | | | [place] | [place] [address] | | | | | [address] | [phone] | | | | | [phone] | | | +--------+ + + + [...] | | | | | | [place] [address] | | | | | | [phone] | | | | | | | | +--------+ + + + + documented as of this encounter Visit Diagnoses Not on filedocumented in this encounter"
--- OUTSIDE RECORDS SUMMARY | ~2020-06-15 | XMS | Encounter Summary ---
Demographics + + + | Address | [address] | | | [place] [address] | + + + | Home Phone [...] Providers + +------+ + | Care Production Support Specialist Name | Role | Phone [...] + | 03/24/ | Telephone | [facility] | [place], | Other (chest pain) | | 2018 | | CARDIOLOGY [address] | Janeen SERVICE STATION HELPER [address] | | | | | [place], | [place], | | | | | [place] [address] | [place] [address] | | | | | [phone] | [phone] | | | | | | | [...] | | | | | | [place] [address] | | | | | | [phone] | | | | | | | | +--------+ + + + + documented as of this encounter Visit Diagnoses Not on filedocumented in this encounter"
--- OUTSIDE RECORDS SUMMARY | ~2020-06-15 | XMS | Encounter Summary ---
Demographics + + + | Address | [address] [place] [address] [address] | | | [place] [address] | + + + | Home Phone [...] [place] | | | | | [address] | | + + + + + Care Team Providers + +------+ + | Care Hook Tender Name | Role | Phone | [...] Chest pain | Farooq Almaguer, | [facility] [address] | | | | | Bradycardia | DO [address] | | | | | Procedures | Yao Booth | [facility] | | | | | | [facility] [place] | Health and | | | | | TRANSTHORACI | [facility] [place] | Healing, | | | | | C | [address] | [address] | | | | | ECHOCARDIOGR | Phone: | [place], [place] | | | | | AM, ADULT | [phone] | [address] | | | | | | Fax: | Phone: | | | | | | [phone] | [phone] | +--------+--------+ + + + + Encounter Details +--------+ + + + + | Date | Type | Department | Care Team | Description | +--------+ + + + + | 02/03/ | Hospital | Cardiac | | | | 2010 | Encounter | Non-Invasive Testing | | | | | | at [facility] [address] | | | | | | [facility] | | | | | | [facility] and Healing, | | | | | | [address] | | | | | | [place], [place] | | | | | | [address] | | | | | | [phone] | | | +--------+ + + + [...]
--- OUTSIDE RECORDS SUMMARY | ~2020-06-15 | XMS | Encounter Summary ---
Demographics + + + | Address | [address] | | | [place] [address] | + + + | Home Phone [...] Providers + +------+ + | Care Well Service Derrick Worker Name | Role | Phone | [...] 2016 | | CARDIOLOGY [address] | BUSINESS SUPERVISOR [address] [place] | | | | | [place], | [place], [place] | | | | | [place] [address] | [address] | | | | | [phone] | | | +--------+--------+ + + + [...] | | | | | | [place] [address] | | | | | | [phone] | | | | | | | | +--------+ + + + + documented as of this encounter Visit Diagnoses Not on filedocumented in this encounter"
--- OUTSIDE RECORDS SUMMARY | ~2020-06-15 | XMS | Clinical Summary ---
Demographics + + + | Address | [address] | | | [place] [address] | + + + | Home Phone [...] + +------+ + | Care Ice Cream Vault Worker Name | Role | Phone | [...] | | + + + +---------+------+------+-------+ | Anselmo-3 Fatty | CAPS, one capsule by | [...] | | | | | | | chevak coronary | | | | | | | | artery of chevak | | | | | | | [...] automatically from request for surgery | | [id number] | + + + + + | Diarrhea, unspecified type | 01/15/2020 | + + + + + | Overview: Added automatically from request for surgery | | [id number] | + + + + + | Unintentional weight loss | 01/15/2020 | + + + + + | Overview: Added automatically from request for surgery | | [id number] | + + + + + | Opioid type dependence, continuous | 01/15/2020 | + + + + + | Overview: Added automatically from request for surgery | | [id number] | + + + + + | Allergy to opioid analgesic | 01/15/2020 | + + + + + | Overview: Added automatically from request for surgery | | [id number] | + + + + + | [...] Overview: Lower back injury (From [facility]) 1980 1984 | + + + [...] + + | Coronary artery disease involving chev[place] coronary artery of | 12/21/2013 | | chevak heart without angina pectoris | | + [...] | | hemostatic band, by [facility] on 07/21[facility]2018 | | shows regadenoson [...] attenuation cannot | | completely be ruled out.[facility] 12/25/13, shows non critical coronary | [...] ventricular arrhythmia performed by Dr. Gambino at [facility] on 01/30/2013. Patient had spontaneous PVCs from [...] back in 3 days to | | [place] for an attempt of ablation under general [...] IMPLANTED GENERATOR | | Medtronic DDD [id number] [id number] 06/14/09 RV LEAD Medtronic Active | | Bipolar CapSureFix 4076 [id number] 06/14/09 A LEAD Medtronic | | Active Bipolar CapSurFix 4076 [id number] 06/14/09 | + + + +---+ | [...] | Heart Cath, 02/29/2012, LVEF is 65%, [facility], Daljit Singletary, | | MDNuclear Medicine Myocardial Gated Stress Test, 05/25/2009, EF 53 | | % during rest and 52% during stress. [facility], | | [place], [place].Persantine Sestamibi Stress Test, 06/14/2008, LVEF is | | 60%, [facility] 12/25[facility]13, shows noncritical | | [...] Plan: Nonobstructive CAD noted | | on [facility] from 2013, no EKG changes, and [...] 06/05/ | Telephone | Family Medicine | Kikr French | Other | | 2019 | [...] 05/03/ | Telephone | Family Medicine | Krik French | Medication Orders | | 2019 [...] involving | | | | | | chevak coronary | | | | | | artery of chevak | | | | | | heart [...] aneurysm | | | | | | ([facility]); Ascending | | | | | | aortic aneurysm | | | | | | ([facility]) | +--------+ + + + + | [...] + + | Mother | | | [place] | | | | (Age | | [...] | | | | | | [place] [address] | | | | | | [phone] | | | | | | | [...] Left: | CAMERON | | 09/27/ | [id number] | | - [id number]: | | Ureter | [employer] | | 2020 | / | | Qty: 1 on 04/13/2019 by | | | - [place] | | | /[id number] | | Matthew Uriarte MD at | | | | | | 56 | | [facility] | | | | | | | | [facility] | | | | | | [...] remote PDF scanned into | | | [facility] for remote interrogation results. Data [...] | monitoring.Device interrogation due in office at [facility]. | | |Data collected by Shabana [...] for pacemaker: Sinoatrial node dysfunction | | ([facility]) (I49.5, 427.81); Pacemaker (Z95.0, V45.01); Pacemaker reprogramming/check [...] and has received error codes. Referred to [facility] Stay | | Connected line. Monthly remote monitoring.Device interrogation due in office at [facility]. | |Underlying rhythm: Sinus rhythm 72-75 [...] and has received error codes. Referred to [employer] Stay Connected line. Monthly remote monitoring. | |Device interrogation due in office at [facility]. | + + + +---------+ + [...] | | | | | | n [place] | | | | | + +--------+ [...] +--------+ +---------+--------+ | MEDICARE | MEDICA | [id number] | 01/21/20 | [phone] | | Medica | | | RE | | 01-Pre | 5 | | re | | | PART A | | sent | | | | | | AND B | | | | | | + +--------+ +--------+ +---------+--------+ | MEDICARE | MEDICA | [id number] | 01/21/20 | [phone] | | Medica | | | RE | | 01-Pre | 5 | | re | | | PART A | | sent | | | | | | AND B | | | | | | + +--------+ +--------+ +---------+--------+ | AARP | AARP | [id number] | | [phone] | | Indemn | | | MDCR | | 016-Pr | 0 | | ity | | | SUPPL | | esent | | | | + +--------+ +--------+ +---------+--------+ | AARP | AARP | [id number] | 11/22/19 | [phone] | | Indemn [...] Person | Self | [birth year] | [address] | | Kirk | cristo/Per | | 1960 | [phone] | Dr [place] | | | roxanne | | | 8 (Home) | [address] | + +--------+ +--------+ + + | Moe Sanchez | Person | Self | [birth year] | [address] | | Kirk | al/Fam | | 1960 | [phone] | Dr [place] | | | roxanne | | | 8 (Home) | [address] | + +--------+ +--------+ + + | Moe Sanchez | Third | Self | [birth year] | [address] | | Kirk | Democrat | | 1960 | [phone] | [address] [place] | | | [place] | | | 3 ([place]) | [address] | | | shiva | | | | | + +--------+ +--------+ + + Advance Directives + + + + + | Type | Date Recorded | Patient | Explanation | | | | 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
--- OUTSIDE RECORDS SUMMARY | ~2020-06-15 | XMS | Encounter Summary ---
Demographics + + + | Address | [address] | | | [place] [address] | + + + | Home Phone [...] + +------+ + | Care Director Of Financial Reporting Name | Role | Phone | + [...] + | 01/25/ | Telephone | [facility] | Daljit Singletary, | Appointment | | 2017 | | CARDIOLOGY [address] | [address] | | | | | [place], | [place], | | | | | [place] [address] | [place] [address] | | | | | [phone] | [phone] | | | | | | | [...] Ramirez and Geri Angel. Patient recently seen [facility] ER and has been referred for follow-up by ER provider. Referral number [id number] has been created. Called patient, [facility] with request for patient to [...] | | | | | | [place] [address] | | | | | | [phone] | | | | | | | | +--------+ + + + + documented as of this encounter Visit Diagnoses Not on filedocumented in this encounter"
--- OUTSIDE RECORDS SUMMARY | ~2020-06-15 | XMS | Encounter Summary ---
Demographics + + + | Address | [address] | | | [place] [address] | + + + | Home Phone [...] Providers + +------+ + | Care Change Over Name | Role | Phone | + [...] + + | 09/01/ | Office | [facility] | Silvia, | Ascending thoracic | | 2015 | Visit | CARDIOLOGY [address] | [address] | aortic aneurysm | | | | [place], | [place], | ([facility]) (Primary Dx); | | | | [place] [address] | [place] [address] | Coronary artery | | | | [phone] | [phone] | disease involving | | | | | | [place] coronary | | | | | | artery of [place] | | | | | | heart [...] of non-critical coronary artery d isease involving [place] coronary artery of [place] heart without angina pectoris, essential h ypertension, [...] episode of chest pain while nelly ng 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 On physical examination there are no signs of fluid overload. The plan will be to lose weight, modify portion control, start exercising, limit sodium in take and we will start losartan 25 mg once a day with a close monitoring of blood pressure. 2. Non-critical Coronary artery disease involving [place] coronary artery of [place] heart [facility] angina pectoris: A. Normal [...] to go back in 3 days to [place] for an attempt of ablation under [...] this chart may have been created with [employer] voice recognition software. Occasi onal wrong-word [...] W | | | | | | [place], | | | | | | [place] [address] | | | | | | [phone] | | | | | | | [...] + + | Coronary artery disease involving [place] coronary artery of [place] heart without | | angina pectoris | + + | Essential hypertension with goal blood pressure less than 130/80 | + + | Hyperlipidemia, mixed Mixed hyperlipidemia | + + documented in this encounter
--- OUTSIDE RECORDS SUMMARY | ~2020-06-15 | XMS | Encounter Summary ---
Demographics + + + | Address | [address] | | | [place] [address] | + + + | Home Phone [...] Providers + +------+ + | Care Dispatcher Clerk Name | Role | Phone | [...] + + | 01/05/ | Office | [facility] | Silvia, | Pacemaker - | | 2017 | Visit | CARDIOLOGY [address] | [address] | Medtronic - ADDR01 | | | | [place], | [place], | [employer] [place]plant[place] | | | | [place] [address] | [place] [address] | 06/14/2009 (Primary | | | | [phone] | [phone] | Dx); Chest pain, | | | [...] involving | | | | | | [place] coronary | | | | | | artery of [place]ute | | | | | | heart [...] of non-critical coronary artery d isease involving [place] coronary artery of [place]aim[place] heart without angina pectoris, essential h ypertension, [...] pain. He went to the ER in [place] because th e NTG didn't relieved the pain. He was diagnosed with bronchitis. Otherwise he has had no ot her symptoms. He has had a good energy level. He tries to stay active. He has joined a [employer] and trying to exercise more often. [...] Preventative health care Coronary artery disease involving napaim[place] coronary artery of napaimute heart without angina pectoris Cannabis abuse, daily [...] 3RD DOSE, CALL 911 100 tablet 3 [place]-3 Fatty Acids (SALMON OIL-1000 PO) CAPS, one [...] 131 (A) 10/18/2017 I reviewed records from [facility] for office visit on 01/2017 whic [...] overload. 2. Non-critical Coronary artery disease involving napaimute coronary a rtery of napaimute heart without angina pectoris: A. Normal exercise [...] be ruled out . D. [facility] 12/25/13, shows non critical coronary [...] to go back in 3 days to [place] for an attempt of ablation under general [...] normal stable device function. Estimated remaining [facility] longevity is 3.5 years.. 5. [...] this chart may have been created with [employer] voice recognition software. Occasi onal wrong-word or [...] | | | | | | [place], | | | | | | [place] [address] | | | | | | [phone] | | | | | | | [...] involving | | | | | | napaim[place] coronary | | | | | | artery of [place]aimute | | | | | | heart [...] SYDNI | | | | | | ([id number]) on 01/06/2018 | | | | | [...] + + | Coronary artery disease involving napaim[place] coronary artery of napaimute heart without | | angina pectoris | + + | Hyperlipidemia, mixed Mixed hyperlipidemia | + + | Hypertension, unspecified type | + + | Syncope, unspecified syncope type | + + | Ascending thoracic aortic aneurysm (HCC) Thoracic aneurysm without mention of rupture | + + documented in this encounter
--- OUTSIDE RECORDS SUMMARY | ~2020-06-15 | XMS | Encounter Summary ---
Demographics + + + | Address | [address] | | | [place] [address] | + + + | Home Phone [...] Providers + +------+ + | Care Advertising Account Executive Name | Role | Phone [...] [address] | | | | | | [place], [place] | (Fax) | | | | | [address] | | | | | | [phone] | | | +--------+ + + + [...] | | | | | | [place] [address] | | | | | | [phone] | | | | | | | | +--------+ + + + + documented as of this encounter Visit Diagnoses Not on filedocumented in this encounter"
--- OUTSIDE RECORDS SUMMARY | ~2020-06-15 | XMS | Encounter Summary ---
Demographics + + + | Address | [address] | | | [place] [address] | + + + | Home Phone [...] Providers + +------+ + | Care Electrician Crane Maintenance Name | Role | Phone | [...] | | | lumbar | B | [place] | | | | | Chronic | [place], [place] | [place], | | | | | left-sided | [address] | [place] [address] | | | | | low back | Phone: | Phone: | | | | | pain with | [phone] | [phone] | | | | | left-sided | Fax: | Fax: | | | | | sciatica | [phone] | [phone] | | | | | History of [...] Closed | | Radiology | Diagnoses | [place], | [address] | | | | | DDD | Scotty C, DISPLAY DECORATOR | [address] | | | | | (degenerativ | [address] | [place], | | | | | e disc | [place] | [place] [address] | | | | | disease), | [address]IVE [address] | Phone: | | | | | lumbar | B | [phone] | | | | | Chronic | [place], [place] | Fax: | | | | | left-sided | [address] | [phone] | | | | | low back | Phone: | | | | | | pain with | [phone] | | | | | | left-sided | Fax: | | | | | | sciatica | [phone] | | | | | | History [...] | 07/01/ | Hospital | [facility] | Scotty Galdamez, | DDD (degenerative | | 2018 | Encounter | [facility] [address] | DISPLAY DECORATOR [address] | disc disease), | | | | [place], | [address] | lumbar; Chronic | | | | [place] [address] | [place] [address] | left-sided low back | | | | [phone] | [phone] | pain with left-sided | | | [...] + + + +---------+ + + | [place]-3 Fatty | CAPS, one capsule by | [...] | | | | | | [place] [address] | | | | | | [phone] | | | | | | | [...]
--- OUTSIDE RECORDS SUMMARY | ~2020-06-15 | XMS | Encounter Summary ---
Demographics + + + | Address | [address] | | | [place] [address] | + + + | Home Phone [...] Team Providers + +------+ + | Care Cashiers Supervisor Name | Role | Phone [...] + + | 06/02/ | Telephone | [facility] | AnshujohnsoncherelleRashadotto, | Other (symptoms) | | 2019 | | CARDIOLOGY [address] | MD [address] [place] | | | | | [place], | [place], | | | | | [place] [address] | [place] [address] | | | | | [phone] | [phone] | | | | | | | [...] RN - 06/02/2019 5:08 PM PDT[facility] Called patient and spoke with him about his symptoms. He is having baljit st pain and shortness of breath, dizziness and lightheadedness where he is almost passes out . "When heart is fluttering it knocks me over". Instructed patient to go to the ER immediate ly. He refuses because he lives in [place] and doesn't want to go to [facility]. He sta marcos he has no one [...] | | | | | | [place] [address] | | | | | | [phone] | | | | | | | | +--------+ + + + + documented as of this encounter Visit Diagnoses Not on filedocumented in this encounter
--- OUTSIDE RECORDS SUMMARY | ~2020-06-15 | XMS | Encounter Summary ---
Demographics + + + | Address | [address] | | | [place] [address] | + + + | Home Phone [...] Team Providers + +------+ + | Care Fill Manager Name | Role | Phone | + +------+ + PCP | Unavailable | + +------+ + Encounter Details +--------+ + + + + | Date | Type | Department | Care Team | Description | +--------+ + + + + | 11/05/ | [facility] | [facility] | Naresh Mckeon | | | 2009 | Encounter | MED CTR SLEEP | MD Chaya [address] | | | | | CENTER [address] [place] | [place] | | | | | [place] | [place] [address] | | | | | [address] | [phone] | | | | | [phone] | | | +--------+ + + + [...] | | | | | | [place] [address] | | | | | | [phone] | | | | | | | | +--------+ + + + + documented as of this encounter Visit Diagnoses Not on filedocumented in this encounter"
--- OUTSIDE RECORDS SUMMARY | ~2020-06-15 | XMS | Encounter Summary ---
Demographics + + + | Address | [address] | | | [place] [address] | + + + | Home Phone [...] Providers + +------+ + | Care Chief Lock Tender Operator Name | Role | Phone | [...] [place] | | | | | [address] [place], [place] | [place] [address] | | | | | [address] | [phone] | | | | | [phone] | | | +--------+ + + + [...] bleeding; he states that he was at [facility] and they wanted to take him to [facility] but he declined. He requested to [...] CHILDRESS in Dr. Rios off ice at [facility]. Patient stated that Dr. Rios recommend that he have a colon procedure RAFFI d ue to his bleeding. Patient stated that he would like to do his pill and colon at the same t sherin. Patient would like to cancel his pill cam appt on DEC 25 2019. Patient would like to do colon here at [facility]. Copies of referral have been sent to scan, in Dr. Gandhi box and placed in Lisa CHILDRESS desk . Patient aware of Dr. Gandhi and Lisa borjas. Provider/Nurse: [place]/ Call back number:[phone] documented in this encou nter Plan of [...] W | | | | | | [place], | | | | | | [place] [address] | | | | | | [phone] | | | | | | | [...]
--- OUTSIDE RECORDS SUMMARY | ~2020-06-15 | XMS | Encounter Summary ---
Demographics + + + | Address | [address] | | | [place] [address] | + + + | Home Phone [...] Phone | + + +---------+ + | Ndaine Kingsley | ECON | Unknown | | + + +---------+ + Care Team Providers + +------+ + | Care Solutions Architect Consultant Name | Role | Phone | + +------+ + | Michael Amanda DO | PCP | | + +------+ + Encounter Details +--------+ + + + + | Date | Type | Department | Care Team | Description | +--------+ + + + + | 10/01/ | Hospital | [facility] | Mary Bradshaw | | | 2013 | Encounter | MED CTR [facility] | Guy Larkin MD | | | | | [address] [place] | [address] | | | | | [place], [place] | [place], [place] | | | | | [address] | [address] | | | | | [phone] | | | +--------+ + + + [...] + + + +---------+ + + | [place]-3 Fatty | CAPS, one capsule by | [...] | | | | | | [place] [address] | | | | | | [phone] | | | | | | | [...] | | | |Dictated and Signed by: Ranegl Gibson MD | | Electronically signed: 10/01/2014 5:05 PM | + + + +---------+ + + | Performing | Address | City/State/Zipcode | Phone Number | | Organization | | | | + +---------+ + + | [facility] | | | [phone] | + +---------+ + + | [facility] | | | [phone] | + +---------+ + + documented in this encounter Visit Diagnoses Not on filedocumented in this encounter"
--- OUTSIDE RECORDS SUMMARY | ~2020-06-15 | XMS | Encounter Summary ---
Demographics + + + | Address | [address] | | | [place] [address] | + + + | Home Phone [...] Providers + +------+ + | Care Automotive Internet Sales Manager Name | Role | Phone [...] | CARDIOLOGY [address] | MD [address] [place] | | | | | [place], | [place], | | | | | [place] [address] | [place] [address] | | | | | [phone] | [phone] | | | | | | | [...] | | | | | | [place] [address] | | | | | | [phone] | | | | | | | | +--------+ + + + + documented as of this encounter Visit Diagnoses Not on filedocumented in this encounter"
--- OUTSIDE RECORDS SUMMARY | ~2020-06-15 | XMS | Encounter Summary ---
Demographics + + + | Address | [address] | | | [place] [address] | + + + | Home Phone [...] Providers + +------+ + | Care Highway Engineering Teacher Name | Role | Phone | + +------+ + PCP | Unavailable | + +------+ + Encounter Details +--------+ + + + + | Date | Type | Department | Care Team | Description | +--------+ + + + + | 02/21/ | [facility] | [facility] | Cristy Braun | | | 2008 | Encounter | MED CTR EMERGENCY | MD [address] | | | | | CENTER [address] | [facility], | | | | | [place] | [place] [address] | | | | | [address] | [phone] | | | | | [phone] | | | +--------+ + + + [...] | | | | | | [place] [address] | | | | | | [phone] | | | | | | | | +--------+ + + + + documented as of this encounter Visit Diagnoses Not on filedocumented in this encounter"
--- OUTSIDE RECORDS SUMMARY | ~2020-06-15 | XMS | Encounter Summary ---
Demographics + + + | Address | [address] | | | [place] [address] | + + + | Home Phone [...] Team Providers + +------+ + | Care Roundsman Name | Role | Phone | + [...] (chronic IBS) | | 2020 | | [facility] | MD [address] | | | | | [facility] [address] | | | | | [address] | [place] [address] | | | | | [place], [place] | [phone] | | | | | [address] | | | | | | [phone] | | | +--------+ + + + [...] he has been in and out of [facility] for his chronic IBS. He states h e has been having rectal bleeding. He has a new GI at [facility] and is scheduled for further stud ies next week. He states the director case at [facility] advised him to contact PCP. Abdoul [...] mario watson Please call patient back at [phone]. If this is a symptom based call, was patient offered triage? Not Applicable If this is a symptom based call and you were unable to immediately transfer the call to a lorraine bellamy catalyst concentration operator was caller made aware that if [...] | | | | | | [place] [address] | | | | | | [phone] | | | | | | | | +--------+ + + + + documented as of this encounter Visit Diagnoses Not on filedocumented in this encounter"
--- OUTSIDE RECORDS SUMMARY | ~2020-06-15 | XMS | Encounter Summary ---
Demographics + + + | Address | [address] | | | [place] [address] | + + + | Home Phone [...] Team Providers + +------+ + | Care Stroke Belt Sander Operator Name | Role | Phone | [...] | | | | [place] | [phone] | | | | | [address] | | | | | | [phone] | | | +--------+ + + + [...] + + + +---------+ + + | [place]-3 Fatty | CAPS, one capsule by | [...] | | | | | | | #[id number], exp 07/2016 | | | | | [...] W | | | | | | [place], | | | | | | [place] [address] | | | | | | [phone] | | | | | | | [...]
--- OUTSIDE RECORDS SUMMARY | ~2020-06-15 | XMS | Encounter Summary ---
Demographics + + + | Address | [address] | | | [place] [address] | + + + | Home Phone [...] Providers + +------+ + | Care Button Tacker Name | Role | Phone | [...] | 01/30/ | Telephone | [facility] | Emmanuel Daniel MD | Referral | | 2019 | | GASTROENTEROLOGY | [address], [place] | | | | | [address] [place] | [address] [place], [place] | | | | | [address] [place], [place] | [address] | | | | | [address] | | | | | | [phone] | | | +--------+ + + + [...] Daniel declines to refer patient to [facility], the referral will have to come [...] a referral to be sent to [facility]. When he saw Dr. Haleigh johnson he had mentioned getting another opinion from him. He tried getting a referral sent fro m his PCP but he says [facility] will not accept it, that they denied it. He says the referral has to come from Dr. Daniel. He gave me all the information. ATT: [facility] Their phone number is [phone] Thank you Electronically signed by Monica Kenny [...] | | | | | | [place] [address] | | | | | | [phone] | | | | | | | | +--------+ + + + + documented as of this encounter Visit Diagnoses Not on filedocumented in this encounter"
--- OUTSIDE RECORDS SUMMARY | ~2020-06-15 | XMS | Encounter Summary ---
Demographics + + + | Address | [address] | | | [place] [address] | + + + | Home Phone [...] Providers + +------+ + | Care Corporate Health Consultant Name | Role | Phone [...] + + | 03/22/ | Refill | [facility] | Kirk French | Medication Refill | | 2019 | | [facility] | MD Brea [address] | | | | | [facility] [facility] [address] | | | | | [address] | [place] [address] | | | | | [place], [place] | [phone] | | | | | [address] | | | | | | [phone] | | | +--------+--------+ + + + [...] | | | | | | [place] [address] | | | | | | [phone] | | | | | | | | +--------+ + + + + documented as of this encounter Visit Diagnoses Not on filedocumented in this encounter"
--- OUTSIDE RECORDS SUMMARY | ~2020-06-15 | XMS | Encounter Summary ---
Demographics + + + | Address | [address] | | | [place] [address] | + + + | Home Phone [...] Providers + +------+ + | Care Stone Carriage Operator Name | Role | Phone | + +------+ + | Kirk French MD | PCP | | + +------+ + Encounter Details +--------+ + + + + | Date | Type | Department | Care Team | Description | +--------+ + + + + | 07/05/ | Hospital | [facility] | Conversion | Acute neck pain | | 2017 | Encounter | [facility] | Transaction, | | | | | [address] | Provider Unknown | | | | | [address] [place], [place] | [phone] | | | | | [address] | | | | | | [phone] | Alden Apolonia | | | | | | MD Shelly [address] | | | | | | [address] | | | | | | [place], [place] | | | | | | [address] | | | | | | [phone] | | | | | | | [...] + + +---------+ + + | [place]-3 Fatty | CAPS, one capsule by | [...] | | | | | | [place] [address] | | | | | | [phone] | | | | | | | [...]
--- OUTSIDE RECORDS SUMMARY | ~2020-06-15 | XMS | Encounter Summary ---
Demographics + + + | Address | [address] | | | [place] [address] | + + + | Home Phone [...] Team Providers + +------+ + | Care Briquetting Machine Operator Name | Role | Phone [...] 2019 | | GASTROENTEROLOGY | [address], [place] | | | | | [address] [place] | [address] [place], [place] | | | | | [address] [place], [place] | [address] | | | | | [address] | | | | | | [phone] | | | +--------+ + + + [...] with plan to go to ER in [place].......... ..................................Kasie Ashley RN on 12/29/18 at 15:39 [...] | | | | | | [place] [address] | | | | | | [phone] | | | | | | | | +--------+ + + + + documented as of this encounter Visit Diagnoses Not on filedocumented in this encounter"
--- OUTSIDE RECORDS SUMMARY | ~2020-06-15 | XMS | Encounter Summary ---
Demographics + + + | Address | [address] | | | [place] [address] | + + + | Home Phone [...] Providers + +------+ + | Care Litigation Docket Manager Name | Role | Phone | [...] | Telephone | [facility] [place] | [place], | Other | | 2018 | | CARDIOLOGY [address] | [address] [place] [address] | | | | | [place], | [place], | | | | | [place] [address] | [place] [address] | | | | | [phone] | [phone] | | | | | | | [...] | | | | | | [place] [address] | | | | | | [phone] | | | | | | | | +--------+ + + + + documented as of this encounter Visit Diagnoses Not on filedocumented in this encounter"
--- OUTSIDE RECORDS SUMMARY | ~2020-06-15 | XMS | Encounter Summary ---
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
--- OUTSIDE RECORDS SUMMARY | ~2020-06-15 | XMS | Encounter Summary ---
Demographics + + + | Address | [address] | | | [place] [address] | + + + | Home Phone [...] | [facility] | | [...] Team Providers + +------+ + | Care Boring Mill Set Up Operator Name | Role | [...] [address] | | | | | [place], | [place], | | | | | [place] [address] | [place] [address] | | | | | [phone] | [phone] | | | | | | | [...] | | | | | | [place] [address] | | | | | | [phone] | | | | | | | | +--------+ + + + + documented as of this encounter Visit Diagnoses Not on filedocumented in this encounter"
--- OUTSIDE RECORDS SUMMARY | ~2020-06-15 | XMS | Encounter Summary ---
Demographics + + + | Address | [address] | | | [place] [address] | + + + | Home Phone [...] Team Providers + +------+ + | Care Snorkelling Instructor Name | Role | Phone | [...] | | | | CHRISTOPH DINH | [phone] | | | | | [address] | | | | | | [phone] | | | +--------+ + + + [...] + + + +---------+ + + | [place]-3 Fatty | CAPS, one capsule by | [...] | | | | | | | #[id number], exp 07/2016 | | | | | [...] [address] | | | | | | [place], | | | | | | [place] [address] | | | | | | [phone] | | | | | | | [...]
--- OUTSIDE RECORDS SUMMARY | ~2020-06-15 | XMS | Encounter Summary ---
Demographics + + + | Address | [address] | | | [place] [address] | + + + | Home Phone [...] + + | 02/27/ | Hospital | [facility] | Shelly Carter DO | Chest pain; | | 2013 - | Encounter | [facility] | [address] | Pacemaker; | | | | CLINICAL DECISION | [place] [address] | Mild dehydration | | 02/28/ | | [address] | [phone] | | | 2013 | | [place], [place] | | | | | | [address] | | | | | | [phone] | | | +--------+ + + + [...] Service: Hospitalist Author Type: Physician Filed: 03/06/14 0937 Date of Service: 02/28/145 Status: Addendum Barrel Stave Inspector: Dev Montano MD (Physician) Related Notes: Original Note by Dev Montano MD (Physician) filed at 02/28/14 1517 Patient ID: Pina Gay [id number] 54 y.o. 1960 Admit date: 02/27/2014 Discharge [...] - 99 mg/dL Final Testing performed at [address] [address] BUN Date Value Range Status 02/28/2014 15 8 - 25 mg/dL Final Testing performed at [address] [address] CREATININE Date Value Range Status 02/28/2014 0.74 0.70 - 1.30 mg/dL Final Testing performed at [address] [address] BUN/CREAT Date Value Range Status 02/28/2014 20 Final Testing performed at [address] [address] TOTAL PROTEIN Date Value Range Status 02/28/2014 6.1* 6.3 - 8.2 g/dL Final Testing performed at [address] [address] GLOBULIN Date Value Range Status 02/28/2014 2.1 1.3 - 4.9 g/dL Final Testing performed at [address] [address] TBIL Date Value Range Status 02/28/2014 1.4 0.1 - 1.5 mg/dL Final Testing performed at [address] [address] ALT Date Value Range Status 02/28/2014 27 10 - 65 U/L Final Testing performed at [address] [address] AST Date Value Range Status 02/28/2014 31 10 - 45 U/L Final Testing performed at [address] [address] SODIUM Date Value Range Status 02/28/2014 138 135 - 143 mmol/L Final Testing performed at [address] [address] POTASSIUM Date Value Range Status 02/28/2014 3.4* 3.5 - 4.9 mmol/L Final Testing performed at [address] [address] CHLORIDE Date Value Range Status 02/28/2014 108 99 - 109 mmol/L Final Testing performed at [address] [address] CO2 Date Value Range Status 02/28/2014 21* 23 - 32 mmol/L Final Testing performed at [address] [address] ANION GAP AGAP Date Value Range Status 02/28/2014 12 5 - 20 mmol/L Final Testing performed at [address] [address] Xr Chest Pa And Lateral 02/27/2014 PINA [...] 3-D reconstructi ons were performed using the Peerform 3-D software and sent to PACS. Oral Contrast: None I V contrast: 100 mL IsoVue 370 COMPARISON: None. FINDINGS: CHEST: The channel worker view shows a p acemaker via left [...] catheterization recently done by Dr. Singletary in [place] in December 2013 at [facility] which showed minimal occlusive disease. One artery was 25% and another was 15%, per patient. I requested official cardiac catheterization report from [place] and still waiting for it to come. 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 You may get these medications from any pharmacy. amLODIPine 5 MG tablet pantoprazole 40 MG tablet Activity: activity as tolerated Diet: cardiac diet Wound Care: not applicable There are no Patient Instructions on file for this visit. Per Pt None Chaka Ortiz MD [address] [facility] [address] In 1 week Ariel Pulido MD [address] [facility] [id number] In 1 week Daljit Singletary MD [address] [facility] [address] In 1 week Signed: DEV MONTANO 02/28/2014 10:45 AM Addendum:ADDENDUM I just received a cardiac catheterization report from [facility], [place], which was done on December 25, 2013. [...] 02/28/141211 Date of Service: 02/28/141210 Status: Signed Barrel Stave Inspector: Jessica Sosa RN (Registered Nurse) Discharge instructions [...] 02/28/1411 Date of Service: 02/28/1411 Status: Signed Barrel Stave Inspector: Mary Wetzel [facility] (Pharmacist) Clinical Pharmacy Note: Renal Monitoring [...] 02/27/142125 Date of Service: 02/27/141952 Status: Signed Barrel Stave Inspector: Shelly Carter DO (Physician) [facility] Service: Hospitalist Admission History & Physical Date [...] cardiac testing: Cardiac cath December 2013 at [facility]. Presently, patient denies chest pain, SOB, PAULINO, nausea, vomiting. No recent weight gain or loss, night sweats x 3 nights, constipation, diarrhea, dysuria, polydipsia, polyuria, hea t or cold intolerance. Diarrhea x 2 days, brown in color, 4 stool in the last 24 hours, taki ng Imodium to control it. Patient has not taken any antibiotics. Goes to the [facility], stopped all pain medication 3 weeks [...] Procedure Component Value Units Date/Time Cardiac Panel [[id number]] (Abnormal) Collected:02/27/14 1747 WBC 10.1 K/uL Updated:02/27/14 [...] 9.3 (H) ng/mL CK-MB Index 1.8 TSH [[id number]] Collected:02/27/141746 Specimen Information:Blood Updated:02/27/14 1823 TSH 0.91 uIU/mL BNP [[id number]] Collected:02/27/141746 Specimen Information:Blood Updated:02/27/141816 BRAIN NATRIURETIC PEPTIDE [...] the patient's c linical course. Dictation software, MedClimate, used which may contain error for similar [...] 02/27/142025 Date of Service: 02/27/142014 Status: Signed Barrel Stave Inspector: Doris Romero RN (Registered Nurse) Dr Carter at bedside. Doris Romero RN 02/27/142025 oEliel madrid MD - 02/27/2014 5:18 PM PDT ED Provider Notes by Eliel Calzada DO at 02/27/141717 Author: Eliel Calzada DO Service: (none) Author Type: Physician Filed: 03/01/14 4507 Date of Service: 02/27/141717 Status: Signed Barrel Stave Inspector: Eliel Calzada DO (Physician) [facility] Department of Emergency Medicine 02/27/2014 5:47 PM History of Present Illness Patient Identification Pina Gay is a 54 y.o. male. Patient information was obtained from patient. History/Exam limitations: none. Patient presented to the Emergency Department by: Car Chief Complaint Chief Complaint Patient presents with Chest Pain Pt presents to the ED with complaints of chest pain. 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 Laboratory Evaluation Results Procedure Component Value Ref Range Date/Time Cardiac Panel [[id number]] (Abnormal) Collected:02/27/14 1747 Order Status:Completed Updated:02/27/14 1823 [...] - 3.6 ng/mL CK-MB Index 1.8 TSH [[id number]] Collected:02/27/141746 Order Status:Completed Updated:02/27/14 182 Specimen Information:Blood TSH 0.91 0.45 - 5.10 uIU/mL BNP [[id number]] Collected:02/27/141746 Order Status:Completed Updated:02/27/141816 Specimen Information:Blood BRAIN NATRIURETIC PEPTIDE 5.7 0 - 100 pg/mL POC cardiac troponin [[id number]] Collected:02/27/141748 Order Status:Completed Updated:02/27/14 180 POC CARDIAC TROPONIN 0.00 0.00 - 0.10 ng/mL I personally reviewed the lab results and they have been posted to the chart. Pertinent po sitive and negative findings have been addressed appropriately. Radiology and EKG Evaluation EKG from 1722 Normal arterially paced rhythm at 78 bpm Normal IA and NENITA Normal QRS and Labadie Normal QT and QTc Normal ST/T without [...] Documented by Eliel Calzada DO (02/27/14 182, [facility] Emergency Department, Emergency Medicine) Chest X-ray: No [...] aortic aneurym ON CT chest needs [address] [facility] [address] Ariel Pulido MD In 1 week [address] [facility] [address] Daljit Singletary MD In 1 week [address] [facility] [address] Per Pt None Discharge Medications: New Prescriptions [...] 105 Date of Service: 02/28/141058 Status: Signed Barrel Stave Inspector: Jessica Sosa RN (Registered Nurse) Problem: Pain [...] | | | | | | [place] [address] | | | | | | [phone] | | | | | | | [...] EXTERNAL | | | | performed at [facility] | | LAB | | | | [address];[place], [place] | | | | | | [address] | | | | + + + [...] | | | | | | ACUTE NH Testing | | | | | | performed at [facility];[address] | | | | | | [facility];[place], [place] | | | | | | [address] | | | | + + + [...] | | | | | | [place] [address] | | | | + + + + + + | Non- | 4.68Comment: Testing | 4.20 - 5.70 | EXTERNAL | | | Red Blood | performed at [facility], [address] | M/uL | LAB | | | Cells | [address], | | | | | Counted | [place] [address] | | | | + + + + + + | Hemoglobin | 15.3Comment: Testing | 13.2 - 17.0 | EXTERNAL | | | | performed at [facility], [address] | g/dL | LAB | | | | [address], | | | | | | [place] [address] | | | | + + + + + + | Hematocrit, | 44.2Comment: Testing | 39.0 - 50.0 % | EXTERNAL | | | POC | performed at [facility], [address] | | LAB | | | | [address], | | | | | | [place] [address] | | | | + + + + + + | MCV | 94.5Comment: Testing | 80.0 - 100.0 fl | EXTERNAL | | | | performed at [facility], [address] | | LAB | | | | [address], | | | | | | [place] [address] | | | | + + + + + + | MCH | 32.6Comment: Testing | 27.0 - 34.0 pg | EXTERNAL | | | | performed at [facility], [address] | | LAB | | | | [address], | | | | | | [place] [address] | | | | + + + + + + | MCHC | 34.5Comment: Testing | 32.0 - 35.5 | EXTERNAL | | | | performed at [facility], [address] | g/dL | LAB | | | | [address], | | | | | | [place] [address] | | | | + + + + + + | RDW-CV | 45.5Comment: Testing | 37 - 53 fl | EXTERNAL | | | | performed at [facility], [address] | | LAB | | | | [address], | | | | | | [place] [address] | | | | + + + + + + | Platelet | 156Comment: Testing | 150 - 400 K/uL | EXTERNAL | | | Count | performed at [facility], [address] | | LAB | | | Plasma | [address], | | | | | | [place] [address] | | | | + + + + + + | MPV | 8.8Comment: Testing | fl | EXTERNAL | | | | performed at [facility], [address] | | LAB | | | | [address], | | | | | | [place] [address] | | | | + + + + + + | Differentia | AUTOMATEDComment: | | EXTERNAL | | | l Type | Testing performed at | | LAB | | | | [facility], [address] | | | | | | [place] | | | | | | [address] | | | | + + + + + + | % Segmented | 57.7Comment: Testing | % | EXTERNAL | | | | performed at [facility], [address] | | LAB | | | Neutrophils | [address], | | | | | | [place] [address] | | | | + + + + + + | % | 31.8Comment: Testing | % | EXTERNAL | | | Lymphocytes | performed at [facility], [address] | | LAB | | | | [address], | | | | | | [place] [address] | | | | + + + + + + | % Monocytes | 9.2Comment: Testing | % | EXTERNAL | | | | performed at [facility], [address] | | LAB | | | | [address], | | | | | | [place] [address] | | | | + + + + + + | % | 0.9Comment: Testing | % | EXTERNAL | | | Eosinophils | performed at [facility], [address] | | LAB | | | | [address], | | | | | | [place] [address] | | | | + + + + + + | % Basophils | 0.4Comment: Testing | % | EXTERNAL | | | | performed at [facility], [address] | | LAB | | | | [address], | | | | | | [place] [address] | | | | + + + + + + | Absolute | 3.9Comment: Testing | 1.9 - 7.4 K/uL | EXTERNAL | | | Segmented | performed at [facility], [address] | | LAB | | | Neutrophils | [address], | | | | | | [place] [address] | | | | + + + + + + | Absolute | 2.1Comment: Testing | 1.0 - 3.9 K/uL | EXTERNAL | | | Lymphocytes | performed at [facility], [address] | | LAB | | | | [address], | | | | | | [place] [address] | | | | + + + + + + | Absolute | 0.6Comment: Testing | 0 - 0.8 K/uL | EXTERNAL | | | Monocytes | performed at [facility], [address] | | LAB | | | [address], | | | | | | [place] [address] | | | | + + + + + + | Absolute | 0.1Comment: Testing | 0 - 0.5 K/uL | EXTERNAL | | | Eosinophils | performed at [facility], [address] | | LAB | | | | [address], | | | | | | [place] [address] | | | | + + + + + + | Absolute | 0.0Comment: Testing | 0 - 0.1 K/uL | EXTERNAL | | | Basophils | performed at [facility], [address] | | LAB | | | | [address], | | | | | | [place] [address] | | | | + + + [...] EXTERNAL | | | | performed at [facility], [address] | | LAB | | | | [address], | | | | | | [place] [address] | | | | + + + [...] EXTERNAL | | | | performed at [facility], [address] | | LAB | | | | [address], | | | | | | [place] [address] | | | | + + + [...] EXTERNAL | | | | performed at [facility];[address] | | LAB | | | | [address];[place] | | | | | | [address] | | | | + + + [...] | | | | | [place] [address] | | | | + + + + + + | Triglycerid | 37Comment: Testing | mg/dL | EXTERNAL | | | es | performed at [facility], [address] | | LAB | | | | [address], | | | | | | [place] [address] | | | | + + + + + + | HDL | 35 (L)Comment: Testing | mg/dL | EXTERNAL | | | | performed at [facility], [address] | | LAB | | | | [address], | | | | | | [place] [address] | | | | + + + + + + | LDL, | 67Comment: Testing | mg/dL | EXTERNAL | | | Calculated | performed at [facility], [address] | | LAB | | | | [address], | | | | | | [place] [address] | | | | + + + [...] | | | | | [place] [address] | | | | + + + + + + | K | 3.4 (L)Comment: Testing | 3.5 - 4.9 | EXTERNAL | | | | performed at [facility], [address] | mmol/L | LAB | | | | [address], | | | | | | [place] [address] | | | | + + + + + + | Cl | 108Comment: Testing | 99 - 109 mmol/L | EXTERNAL | | | | performed at [facility], [address] | | LAB | | | | [address], | | | | | | [place] [address] | | | | + + + + + + | CO2 | 21 (L)Comment: Testing | 23 - 32 mmol/L | EXTERNAL | | | | performed at [facility], [address] | | LAB | | | | [address], | | | | | | [place] [address] | | | | + + + + + + | Anion Gap | 12Comment: Testing | 5 - 20 mmol/L | EXTERNAL | | | | performed at [facility], [address] | | LAB | | | | [address], | | | | | | [place] [address] | | | | + + + + + + | Glucose, | 107 (H)Comment: Testing | 65 - 99 mg/dL | EXTERNAL | | | Fasting | performed at [facility], [address] | | LAB | | | | [address], | | | | | | [place] [address] | | | | + + + + + + | BUN | 15Comment: Testing | 8 - 25 mg/dL | EXTERNAL | | | | performed at [facility], [address] | | LAB | | | [address], | | | | | | [place] [address] | | | | + + + + + + | Creatinine | 0.74Comment: Testing | 0.70 - 1.30 | EXTERNAL | | | | performed at [facility], [address] | mg/dL | LAB | | | | [address], | | | | | | [place] [address] | | | | + + + + + + | BUN/Creatin | 20Comment: Testing | | EXTERNAL | | | ine Ratio | performed at [facility], [address] | | LAB | | | | [address], | | | | | | [place] [address] | | | | + + + + + + | Calcium | 8.9Comment: Testing | 8.5 - 10.2 | EXTERNAL | | | | performed at [facility], [address] | mg/dL | LAB | | | | [address], | | | | | | [place] [address] | | | | + + + + + + | Protein, | 6.1 (L)Comment: Testing | 6.3 - 8.2 g/dL | EXTERNAL | | | Total | performed at [facility], [address] | | LAB | | | | [address], | | | | | | [place] [address] | | | | + + + + + + | Albumin | 4.0Comment: Testing | 3.6 - 5.0 g/dL | EXTERNAL | | | | performed at [facility], [address] | | LAB | | | | [address], | | | | | | [place] [address] | | | | + + + + + + | Globulin | 2.1Comment: Testing | 1.3 - 4.9 g/dL | EXTERNAL | | | | performed at [facility], [address] | | LAB | | | | [address], | | | | | | [place] [address] | | | | + + + + + + | A/G Ratio | 1.9Comment: Testing | 1.0 - 2.4 | EXTERNAL | | | | performed at [facility], [address] | | LAB | | | | [address], | | | | | | [place] [address] | | | | + + + + + + | Bilirubin | 1.4Comment: Testing | 0.1 - 1.5 mg/dL | EXTERNAL | | | Total | performed at [facility], [address] | | LAB | | | | [address], | | | | | | [place] [address] | | | | + + + + + + | ALP, | 46Comment: Testing | 35 - 115 U/L | EXTERNAL | | | External | performed at [facility], [address] | | LAB | | | | [address], | | | | | | [place] [address] | | | | + + + + + + | AST | 31Comment: Testing | 10 - 45 U/L | EXTERNAL | | | | performed at [facility], [address] | | LAB | | | | [address], | | | | | | [place] [address] | | | | + + + + + + | ALT | 27Comment: Testing | 10 - 65 U/L | EXTERNAL | | | | performed at [facility], [address] | | LAB | | | | [address], | | | | | | [place] [address] | | | | + + + [...] | | | | | [place] [address] | | | | + + + [...] | | | | | | WILIAN (702) on 02/28/2014 | | | | | | 2:24:36 PM | | | | + + + + + + + + | Specimen | + + | | + + + + + | Narrative | Performed At | + + + | Historically converted procedure from [facility] | EXTERNAL LAB | + + [...] EXTERNAL | | | | performed at [facility] | | LAB | | | | [address];[place], [place] | | | | | | [address] | | | | + + + [...] | | | | | | ACUTE NH Testing | | | | | | performed at [facility];[address] | | | | | | [facility];[place], [place] | | | | | | [address] | | | | + + + [...] EXTERNAL | | | | performed at [facility];[address] | | LAB | | | | [address];[place], [place] | | | | | | [address] | | | | + + + [...] were | | | performed using the Peerform 3-D software and sent to PACS. Oral | | | Contrast: None IV contrast: 100 mL IsoVue 370 COMPARISON: None. 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 Oral Contrast: NoneIV contrast: 100 | | mL IsoVue 370 COMPARISON:None. FINDINGS: CHEST: The channel worker view shows a pacemaker via | | [...] EXTERNAL | | | | performed at [facility];[address] | | LAB | | | [address];[place] | | | | | | [address] | | | | + + + + + -+ | Non- | 5.19Comment: Testing | 4.20 - 5.70 | EXTERNAL | | | Red Blood | performed at [facility];[address] | M/uL | LAB | | | Cells | [address];[place] | | | | | Counted | [address] | | | | + + + + + -+ | Hemoglobin | 16.8Comment: Testing | 13.2 - 17.0 | EXTERNAL | | | | performed at [facility];[address] | g/dL | LAB | | | | [address];[place] | | | | | | [address] | | | | + + + + + -+ | Hematocrit, | 49.5Comment: Testing | 39.0 - 50.0 % | EXTERNAL | | | POC | performed at [facility];[address] | | LAB | | | | [address];[place] | | | | | | [address] | | | | + + + + + -+ | MCV | 95.4Comment: Testing | 80.0 - 100.0 fl | EXTERNAL | | | | performed at [facility];[address] | | LAB | | | | [address];[place] | | | | | | [address] | | | | + + + + + -+ | MCH | 32.4Comment: Testing | 27.0 - 34.0 pg | EXTERNAL | | | | performed at [facility];[address] | | LAB | | | | [address];[place] | | | | | | [address] | | | | + + + + + -+ | MCHC | 34.0Comment: Testing | 32.0 - 35.5 | EXTERNAL | | | | performed at [facility];[address] | g/dL | LAB | | | | [address];[place] | | | | | | [address] | | | | + + + + + -+ | RDW-CV | 46.8Comment: Testing | 37 - 53 fl | EXTERNAL | | | | performed at [facility];[address] | | LAB | | | | [address];[place] | | | | | | [address] | | | | + + + + + -+ | Platelet | 179Comment: Testing | 150 - 400 K/uL | EXTERNAL | | | Count | performed at [facility];[address] | | LAB | | | Plasma | [address];[place] | | | | | | [address] | | | | + + + + + -+ | MPV | 8.6Comment: Testing | fl | EXTERNAL | | | | performed at [facility];[address] | | LAB | | | | [address];[place] | | | | | | [address] | | | | + + + + + -+ | Differentia | AUTOMATEDComment: | | EXTERNAL | | | l Type | Testing performed at | | LAB | | | | [facility];[address];[place] [address] | | | | + + + + + -+ | % Segmented | 62.4Comment: Testing | % | EXTERNAL | | | | performed at [facility];[address] | | LAB | | | Neutrophils | [address];[place] | | | | | | [address] | | | | + + + + + -+ | % | 26.3Comment: Testing | % | EXTERNAL | | | Lymphocytes | performed at [facility];[address] | | LAB | | | | [address] | | | | | | [address] | | | | + + + + + -+ | % Monocytes | 10.3Comment: Testing | % | EXTERNAL | | | | performed at [facility];[address] | | LAB | | | | [address];[place] | | | | | | [address] | | | | + + + + + -+ | % | 0.5Comment: Testing | % | EXTERNAL | | | Eosinophils | performed at [facility];[address] | | LAB | | | | [address];[place] | | | | | | [address] | | | | + + + + + -+ | % Basophils | 0.5Comment: Testing | % | EXTERNAL | | | | performed at [facility];[address] | | LAB | | | | [address];[place] | | | | | | [address] | | | | + + + + + -+ | Absolute | 6.3Comment: Testing | 1.9 - 7.4 K/uL | EXTERNAL | | | Segmented | performed at [facility];[address] | | LAB | | | Neutrophils | [address];[place] | | | | | | [address] | | | | + + + + + -+ | Absolute | 2.7Comment: Testing | 1.0 - 3.9 K/uL | EXTERNAL | | | Lymphocytes | performed at [facility];[address] | | LAB | | | | [address];[place] | | | | | | [address] | | | | + + + + + -+ | Absolute | 1.0 (H)Comment: Testing | 0 - 0.8 K/uL | EXTERNAL | | | Monocytes | performed at [facility];[address] | | LAB | | | | [address];[place] | | | | | | [address] | | | | + + + + + -+ | Absolute | 0.0Comment: Testing | 0 - 0.5 K/uL | EXTERNAL | | | Eosinophils | performed at [facility];[address] | | LAB | | | | [address];[place] | | | | | | [address] | | | | + + + + + -+ | Absolute | 0.1Comment: Testing | 0 - 0.1 K/uL | EXTERNAL | | | Basophils | performed at [facility];[address] | | LAB | | | | [address];[place] | | | | | | [address] | | | | + + + + + -+ | Na | 139Comment: Testing | 135 - 143 | EXTERNAL | | | | performed at [facility];[address] | mmol/L | LAB | | | | [address];[place] | | | | | | [address] | | | | + + + + + -+ | K | 3.4 (L)Comment: Testing | 3.5 - 4.9 | EXTERNAL | | | | performed at [facility];[address] | mmol/L | LAB | | | | [address];[place] | | | | | | [address] | | | | + + + + + -+ | Cl | 108Comment: Testing | 99 - 109 mmol/L | EXTERNAL | | | | performed at [facility];[address] | | LAB | | | | [address];[place] | | | | | | [address] | | | | + + + + + -+ | CO2 | 21 (L)Comment: Testing | 23 - 32 mmol/L | EXTERNAL | | | | performed at [facility] [place] | | LAB | | | | [address];[place] | | | | | | [id number] | | | | + + + + + -+ | Anion Gap | 14Comment: Testing | 5 - 20 mmol/L | EXTERNAL | | | | performed at [facility] [place] | | LAB | | | | [address];[place] | | | | | | [id number] | | | | + + + + + -+ | Glucose, | 124 (H)Comment: Testing | 65 - 99 mg/dL | EXTERNAL | | | Fasting | performed at [facility] [place] | | LAB | | | | [address];[place] | | | | | | [id number] | | | | + + + + + -+ | BUN | 20Comment: Testing | 8 - 25 mg/dL | EXTERNAL | | | | performed [place] [facility] [place] [facility] [place] [place];[address] | | LAB | | | | [address];[place] | | | | | | [address] | | | | + + + + + -+ | Creatinine | 0.97Comment: Testing | 0.70 - 1.30 | EXTERNAL | | | | performed at [facility] [place] | mg/dL | LAB | | | | [address];[place] | | | | | | [address] | | | | + + + + + -+ | BUN/Creatin | 21Comment: Testing | | EXTERNAL | | | ine Ratio | performed at [facility] [place] | | LAB | | | | [address];[place] | | | | | | [address] | | | | + + + + + -+ | Calcium | 8.7Comment: Testing | 8.5 - 10.2 | EXTERNAL | | | | performed at [facility] [place]888 | mg/dL | LAB | | | | [address];[place] | | | | | | [address] | | | | + + + + + -+ | Protein, | 7.6Comment: Testing | 6.3 - 8.2 g/dL | EXTERNAL | | | Total | performed at [facility] [place] | | LAB | | | | [address];[place] | | | | | | [address] | | | | + + + + + -+ | Albumin | 4.2Comment: Testing | 3.6 - 5.0 g/dL | EXTERNAL | | | | performed at [facility] [place] | | LAB | | | | [address];[place] | | | | | | [address] | | | | + + + + + -+ | Globulin | 3.4Comment: Testing | 1.3 - 4.9 g/dL | EXTERNAL | | | | performed at [facility] [place] | | LAB | | | | [address];[place] | | | | | | [address] | | | | + + + + + -+ | A/G Ratio | 1.2Comment: Testing | 1.0 - 2.4 | EXTERNAL | | | | performed at [facility] [place];[address] | | LAB | | | | [address];[place] | | | | | | [address] | | | | + + + + + -+ | Bilirubin | 1.1Comment: Testing | 0.1 - 1.5 mg/dL | EXTERNAL | | | Total | performed at [facility] [place];[address] | | LAB | | | | [address];[place] | | | | | | [address] | | | | + + + + + -+ | ALP, | 77Comment: Testing | 35 - 115 U/L | EXTERNAL | | | External | performed at [facility] [place];[address] | | LAB | | | | [address];[place] | | | | | | [address] | | | | + + + + + -+ | AST | 35Comment: Testing | 10 - 45 U/L | EXTERNAL | | | | performed at [facility] [place];[address] | | LAB | | | | [address];[place] | | | | | | [address] | | | | + + + + + -+ | ALT | 43Comment: Testing | 10 - 65 U/L | EXTERNAL | | | | performed at [facility] [place];[address] | | LAB | | | | [address];[place] | | | | | | [address] | | | | + + + [...] | | | | | | at [facility] [place];[address] | | | | | [address];[place] [address] | | | | + + + + + -+ | CK, Total | 510 (H)Comment: Testing | 55 - 400 U/L | EXTERNAL | | | | performed at [facility] [place];[address] | | LAB | | | | [address];[place] | | | | | | [address] | | | | + + + [...] | | | | | performed at [facility] [place];[address] | | | | | | [address];[place] | | | | | | [address] | | | | + + + + + -+ | aPTT, | 24Comment: Testing | 23 - 32 seconds | EXTERNAL | | | Patient | performed at [facility] [place];[address] | | LAB | | | | [address];[place] | | | | | | [address] | | | | + + + + + -+ | CK-MB | 9.3 (H)Comment: Testing | 0.5 - 3.6 ng/mL | EXTERNAL | | | | performed at [facility] [place] | | [...] EXTERNAL | | | | performed at [facility] [place];888 | uIU/mL | LAB | | | | [address];[place], [place] | | | | | | [address] | | | | + + + [...] EXTERNAL | | | | performed at [facility] [place];[facility] | | LAB | | | | [facility], [place] | | | | | | [address] | | | | + + + [...] (500), | | | | | | scientific publications editor TERESE NINA (2) | | | | | | on 02/27/2014 6:56:17 PM | | | | + + + + + + + + | Specimen | + + | | + + + + + | Narrative | Performed At | + + + | [facility] | EXTERNAL LAB | [...]
--- OUTSIDE RECORDS SUMMARY | ~2020-06-15 | XMS | Encounter Summary ---
Demographics + + + | Address | [address] | | | [place] [address] | + + + | Home Phone [...] Providers + +------+ + | Care Timber Selector Name | Role | Phone | [...] | | | | | | [place] [address] | | | | | | [phone] | | | +--------+ + + + [...] | | | | | | [place] [address] | | | | | | [phone] | | | | | | | | +--------+ + + + + documented as of this encounter Visit Diagnoses Not on filedocumented in this encounter"
--- OUTSIDE RECORDS SUMMARY | ~2020-06-15 | XMS | Encounter Summary ---
Demographics + + + | Address | [address] | | | [place] [address] | + + + | Home Phone [...] Providers + +------+ + | Care Cyber Instructor Name | Role | Phone | [...] ) | | | | [address] [address] [address] | [place] | | | | | [address] | [address] | | | | | [phone] | | | +--------+ + + + [...] for flow max be sent to the [facility] [place] like this is the [...] | | | | | | [place] [address] | | | | | | [phone] | | | | | | | | +--------+ + + + + documented as of this encounter Visit Diagnoses Not on filedocumented in this encounter"
--- OUTSIDE RECORDS SUMMARY | ~2020-06-15 | XMS | Encounter Summary ---
Demographics + + + | Address | [address] | | | [place] [address] | + + + | Home Phone [...] Providers + +------+ + | Care Director Radio News Name | Role | Phone | + [...] [place] | | | | | | [address] | [address] Phone: | | | | | | Phone: | [phone] | | | | | | [phone] | Fax: | | | | | | Fax: | [phone] | | | | | | [phone] | | +--------+ + + + + + Reason for Visit + + + | Reason | Comments | + + + | Medicare Wellness | | + + + Encounter Details +--------+---------+ + + + | Date | Type | Department | Care Team | Description | +--------+---------+ + + + | 07/25/ | Office | [facility] | Michael Amanda, | Preventative health | | 2014 | Visit | MEDICINE [place] | DO [address] | care (Primary Dx); | | | | [address] | [place] | Cannabis abuse, | | | | [place], [place] | [address] | daily use; Urinary | | | | [address] | | frequency; | | | | [phone] | | Incontinence; | | | | [...] needed for Chest pain. 25 tablet 12 [place]-3 Fatty Acids (SALMON OIL-1000 PO) CAPS, [...] as Nurse Practitioner (Cardiology) FENG Chou (Physician Pet Training Instructor) Current Medicare Suppliers: [facility] - [place], [place] - [address] [place] [address] [facility] - [place] - [address] [place] [address] HEALTH RISK ASSESSMENT: : The patient or [...] no kevin in the usual sections in wiseri. documented in this en counter Miscellaneous Notes [...] | | | | | [place], | | | | | | [place] [address] | | | | | | [phone] | | | | | | | [...] Primary Routine general medical examination at a [facility] | | care facility | + [...]
--- OUTSIDE RECORDS SUMMARY | ~2020-06-15 | XMS | Encounter Summary ---
Demographics + + + | Address | [address] | | | [place] [address] | + + + | Home Phone [...] Providers + +------+ + | Care Nuclear Engineering Technician Name | Role | Phone [...] + + | 06/20/ | Telephone | [facility] | Daljit Singletary, | Chest Pain | | 2018 | | CARDIOLOGY [address] | MD [address] [place] | | | | | [place], | [place], | | | | | [place] [address] | [place] [address] | | | | | [phone] | [phone] | | | | | | | [...] He states he refuses to go to [facility] so he will come here. I stated he needs to have somebody d rive him if he comes over here. He will find a service car driver and take another nitro to [...] | | | | | | [place] [address] | | | | | | [phone] | | | | | | | | +--------+ + + + + documented as of this encounter Visit Diagnoses Not on filedocumented in this encounter
--- OUTSIDE RECORDS SUMMARY | ~2020-06-15 | XMS | Encounter Summary ---
Demographics + + + | Address | [address] | | | [place] [address] | + + + | Home Phone [...] + +------+ + | Care Account Services Representative Name | Role | Phone | [...] + | 06/26/ | Office | [facility] | ShoshoneJacek, | Diplopia (Primary | | 2012 | Visit | [facility] | [address] | Dx); Symptomatic | | | | [address] | [place] | PVCs; Hypertension | | | | [place], [place] | [address] | | | | | [address] | | | | | | [phone] | | | +--------+---------+ + + + [...] Double vision will affect your ability to commercial engineer distance. This means it will be [...] or, difficulty with vision, speech or walking 8938-0424 [facility], [address] [place] [address], [place] [address]. All rights reserve d. This information is [...] from his pain clinic visit in the [facility] on Wednesday or he developed double [...] tablet by mouth Daily. 30 tablet 6 [place]-3 Fatty Acids (SALMON OIL-1000 PO) CAPS, [...] | | | | | | [place], | | | | | | [place] [address] | | | | | | [phone] | | | | | | | [...] | [facility] | [address] | [place], [place] | [phone] | | [facility] | | [address] | | | - LABORATORY | | | | + + + + + | [facility] | [address] | [place], [place] | | | [facility] | | [address] [place] [address] | | | - LABORATORY | | [...] | [facility] | [address] | [place] | [phone] | | [facility] | | [address] | | | - LABORATORY | | | | + + + + + | [facility] | [address] | [place] | | | [facility] | | [address] | | | - LABORATORY [...] | [facility] | | | | [facility] | | MEDICAL | | | [...] | [facility] | [address] | [place] | [phone] | | [facility] | | [address] | | | - LABORATORY | | | | + + + + + | [facility] | [address] | [place], [place] | | | [facility] | | [address], [facility] | | | - LABORATORY [...]
--- OUTSIDE RECORDS SUMMARY | ~2020-06-15 | XMS | Encounter Summary ---
Demographics + + + | Address | [address] | | | [place] [address] | + + + | Home Phone [...] + +------+ + | Care Apartment Leasing Agent Name | Role | Phone | [...] | | Ascending | [place] | [place] | | | | | aortic | [place] | [place], | | | | | aneurysm | [address] | [place] [address] | | | | | (HCC) | [place] | Phone: | | | | | Abdominal | [place], | [phone] | | | | | aortic | [place] | Fax: | | | | | aneurysm | [address] | [phone] | | | | | (AAA) | Phone: | | | | | | without | [phone] | | | | | | rupture | Fax: | | | | | | (HCC) | [phone] | | | | | | Procedures [...] | unspecified | MD Martell | [address] | | | | | type ER | [address] | [place] [address] | | | | | FUP | [place] | [place], | | | | | Procedures | [place], [place] | [place] [address] | | | | | FUP - SUW & | [address] | Phone: | | | | | MISHA PT, LAST | Phone: | [phone] | | | | | SEEN | [phone] | Fax: | | | | | 08-24-18 | Fax: | [phone] | | | | | | [phone] | | +--------+ + + + + + Encounter Details +--------+---------+ + + + | Date | Type | Department | Care Team | Description | +--------+---------+ + + + | 01/11/ | Office | [facility] | Silvia, | Coronary artery | | 2018 | Visit | CARDIOLOGY [address] | [place] [address] | disease involving | | | | [place], | [place], | rincon coronary | | | | [place] [address] | [place] [address] | artery of rincon | | | | [phone] | [phone] | heart without angina | | | [...] encounter Patient Instructions Patient Instructions Jennifer February, Copy Director - 01/11/2019 12:45 PM PST 1. [...] Check-in time: 1. Check in at the [facility]. 2. Do not [...] procedure. 6. Make sure you have a dedicated driver to take you home. Your dedicated driver will also need to sign you [...] hospital line at and ask for nursing batch plant supervisor t o let them know you are cancelling . Blood test: Non-fasting Date Due: same day as CTA Where to go for labs: [facility] [address] [facility]. CTA of Chest and Abdomen: Date: [...] 3RD DOSE, CALL 911 100 tablet 3 Angel[place]-3 Fatty Acids (SALMON OIL-1000 PO) CAPS, one [...] was found Confirmed by ANGELA MARADIAGA MD ([id number]) on 01/03/2019 8:10:39 PM LAB RESULTS reviewed during visit today primarily from [facility]: LIPID Lab Results Component Value [...] the HPI. RESULTS- I reviewed reports from [facility]: Xr Chest Ap Portable Result Date: [...] involving rincon coronary artery of rincon heart [facility] angina pectoris: A. Normal exercise sestamibi [...] Symptoms with moderate exertion of t he [place] [employer] functional class. Heart failure stage [...] [facility] Patient had spontaneous PVC's [...] go back in 3 days t o [place] for an attempt of ablation under general [...] he has any further problems Christine Clemente Copy Director am acting as a scribe on behalf of, and in the pres ence of PARISA Lomas. - Reji Newman 01/11/2019 13:46 Janeen Clemente ARNP, personally performed the services described in this documentati on, as scribed in my presence and it is both accurate and complete. -PARISA Lomas 01/11/2019 Portions of this chart may have been created with Webstep voice recognition software. Occasi onal wrong-word or [...] | | | | | | [place] [address] | | | | | | [phone] | | | | | | | [...]
--- OUTSIDE RECORDS SUMMARY | ~2020-06-15 | XMS | Encounter Summary ---
Demographics + + + | Address | [address] | | | [place] [address] | + + + | Home Phone [...] Team Providers + +------+ + | Care Computational Linguist Name | Role | Phone | [...] Emergency | [facility] | Dom Graham, | Cervical pain (neck) | | 2013 | | [facility] | MD [address] | (Primary Dx); | | | | CENTER [address] | [place] | Paresthesia and pain | | | | [place] | [address] | of both upper | | | | [address] | | extremities | | | | [phone] | | | +--------+ + + + [...] cannot be sent through Care Everywhere.PARAESTHESIAS ( NAURUAN)NECK SPRAIN/STRAIN (NAURUAN)documented in this encounter Medications at Time of [...] + + + +---------+ + + | [place]-3 Fatty | CAPS, one capsule by | [...] TABLET Take 1 tablet by mouth Daily. [facility] NATURAL PRODUCTS (OSTEO BI-FLEX/5-LOXIN [...] [place] Check glucose as needed for hypoglycemia PANTOPRAZOLE [...] Bilateral external ears normal, Oral mucosa moist, medical record administrator ior pharynx no exudates, Nose normal. Neck-supple, [...] Amanda DO. In 1 week. Contact information: [address] [place] [address] New Prescriptions METHYLPREDNISOLONE (MEDROL DOSEPAK) 4 MG TABLET Follow package directions. Dom Graham MD 06/18/14 1722 document ed in this encounter Miscellaneous Notes Plan of Care - IRINA MAXWELL WAOH - 06/21/2014 12:00 AM PDT D Triage [...] | | | | | | [place] [address] | | | | | | [phone] | | | | | | | [...] + | MISCELLANEOUS LAB | | | [phone] | + +---------+ + + | MISCELANIOUS LAB | | | [phone] | + +---------+ + + documented in this encounter Visit Diagnoses + + | Diagnosis | + + | Cervical pain (neck) - Primary Cervicalgia | + + | Paresthesia and pain of both upper extremities Disturbance of skin sensation | + + documented in this encounter
--- OUTSIDE RECORDS SUMMARY | ~2020-06-15 | XMS | Encounter Summary ---
Demographics + + + | Address | [address] | | | [place] [address] | + + + | Home Phone [...] + + | 12/14/ | Telephone | [facility] | Emmanuel Daniel MD | Follow-up, Office | | 2019 | | GASTROENTEROLOGY | [address] [facility] | Visit (wants to | | | | [address] [facility] | [address] [place], [place] | cancel his office | | | | [address] [place], [place] | [address] | appointment today) | | | | [address] | | | | | | [phone] | | | +--------+ + + + [...] encounter Miscellaneous Notes Telephone Encounter - MattKailyn, REGISTERED NURSE FIRST ASSISTANT - 12/14/2018 12:00 PM PSTPatient calls in, [...] horrible, he states he has been to [facility], [facility] , [place] and [facility], and they are all bad, [...] | | | | | | [place] [address] | | | | | | [phone] | | | | | | | | +--------+ + + + + documented as of this encounter Visit Diagnoses Not on filedocumented in this encounter"
--- OUTSIDE RECORDS SUMMARY | ~2020-06-15 | XMS | Encounter Summary ---
Demographics + + + | Address | [address] | | | [place] [address] | + + + | Home Phone [...] Providers + +------+ + | Care Linux Kernel Developer Name | Role | Phone | [...] | | | | | | [address] [place], [place] | | | | | | [address] | | | | | | [phone] | | | +--------+ + + + [...] | | | | | | [place] [address] | | | | | | [phone] | | | | | | | | +--------+ + + + + documented as of this encounter Visit Diagnoses Not on filedocumented in this encounter"
--- OUTSIDE RECORDS SUMMARY | ~2020-06-15 | XMS | Encounter Summary ---
Demographics + + + | Address | [address] | | | [place] [address] | + + + | Home Phone [...] Providers + +------+ + | Care Service Desk Associate Name | Role | Phone | [...] + + | 04/21/ | Telephone | [facility] | Emmanuel Daniel MD | Irritable Bowel | | 2019 | | GASTROENTEROLOGY | [address] [place], [place] | Syndrome | | | | [address] [place] | [address] [place], [place] | | | | | [address] [place], [place] | [address] | | | | | [address] | | | | | | [phone] | | | +--------+ + + + [...] is still macy hermelinda to hear from [facility] [employer], records were refaxed 04/10/2019. She will get [...] | | | | | | [place] [address] | | | | | | [phone] | | | | | | | | +--------+ + + + + documented as of this encounter Visit Diagnoses Not on filedocumented in this encounter"
--- OUTSIDE RECORDS SUMMARY | ~2020-06-15 | XMS | Encounter Summary ---
Demographics + + + | Address | [address] | | | [place] [address] | + + + | Home Phone [...] Providers + +------+ + | Care Rod Straightener Name | Role | Phone | [...] + | 09/01/ | Telephone | [facility] | Silvia, | Appointment | | 2016 | | CARDIOLOGY [address] | [place] [address] | (Reschedule) | | | | [place], | [place], | | | | | [place] [address] | [place] [address] | | | | | [phone] | [phone] | | | | | | | [...] | | | | | | [place] [address] | | | | | | [phone] | | | | | | | | +--------+ + + + + documented as of this encounter Visit Diagnoses Not on filedocumented in this encounter"
--- OUTSIDE RECORDS SUMMARY | ~2020-06-15 | XMS | Encounter Summary ---
Demographics + + + | Address | [address] | | | [place] [address] | + + + | Home Phone [...] Results | | 2012 | | MEDICINE [facility] | [address] | | | | | [address] | [place] | | | | | [place], [place] | [address] | | | | | [address] | | | | | | [phone] | | | +--------+ + + + [...] | | | | | | [place] [address] | | | | | | [phone] | | | | | | | | +--------+ + + + + documented as of this encounter Visit Diagnoses Not on filedocumented in this encounter"
--- OUTSIDE RECORDS SUMMARY | ~2020-06-15 | XMS | Encounter Summary ---
Demographics + + + | Address | [address] | | | [place] [address] | + + + | Home Phone [...] Providers + +------+ + | Care Internet Salesperson Name | Role | Phone | + +------+ + | Kirk French MD | PCP | | + +------+ + Encounter Details +--------+ + + + + | Date | Type | Department | Care Team | Description | +--------+ + + + + | 12/24/ | [facility] | [facility] | Emmanuel Daniel MD | Pain of upper | | 2018 | Encounter | MED CTR MP INTRA OP | [address], [place] | abdomen (Primary | | | | [address] | [address] [place], [place] | Dx); Functional | | | | [place], [place] | [address] | diarrhea; Weight | | | | [address] | | loss | | | | [phone] | | | +--------+ + + + [...] any noct urnal symptoms. He was in [facility] 2 years ago and required hospitalization [...] severe diarrhea probable infective occurring while visiting [facility] Diarrhea etiology and significance to be [...] Endoscopy Patient: Moe Sanchez : 1960 Acct: [id number] Exam Date: Sunday, December 24, 2017 Doctor: [...] If unable to reach your physician, call [facility] Emergency Department at [address] [...] Exams Patient: Moe Sanchez : 1960 Acct: [id number] Exam Date: Sunday, December 24, 2017 Doctor: [...] If unable to reach your physician, call [facility] Emergency Department at [address] [...] | | | | | | [place] [address] | | | | | | [phone] | | | | | | | [...] + + | Performed at: 01 - [facility] [address], | REFERENCE LAB | | [place], [place] [id number] Steam Table Associate: William Andrew MD, Phone: | ARSH - KINA | | [phone] | | + + + + + + + + | Performing | Address | City/State/Zipcode | Phone Number | | Organization | | | | + + + + + | REFERENCE LAB | [address] | [place], [place] | [phone] | | [facility] | [place] | [address] | | + + + + + [...] [address] | [place] | [phone] | | [facility] | | [address] | | | - LABORATORY | | [...] [address] | [place] | [phone] | | [facility] | | [address] | | | - LABORATORY | | [address] | [place] | [phone] | | [facility] | | [address] | | | - LABORATORY | | [...] + + | Performed at: 01 - [place] [address], | REFERENCE LAB | | [place], [place] [id number] Steam Table Associate: William Andrew MD, Phone: | ARSH CASTANON | | [phone] | | + + + + + + + + | Performing | Address | City/State/Zipcode | Phone Number | | Organization | | | | + + + + + | REFERENCE LAB | [address] | [place], [place] | [phone] | | [facility] | Drive [facility] | [address] | | + + + + + [...] ST. | [address] | [place], [place] | [phone] | | [facility] | | [address] | | | - LABORATORY | | [...] [address] | [place] | [phone] | | [facility] | | [address] | | | - LABORATORY | | [...] [address] | [place] | [phone] | | [facility] | | [address] | | | - LABORATORY | | [...] [address] | [place] | [phone] | | [facility] | | [address] | | | - LABORATORY | | [...] [address] | [place] | [phone] | | [facility] | | [address] | | | - LABORATORY | | | | + + + + + DAVIAN (12/24/2017 1:19 PM PST) + + | Specimen | + + | | + + + + -+ | Narrative | Performed At | + + -+ | | [facility] | | GastroenterologyPatient Name: Moe SanchezProcedpasha Date: 12/24/2017 | PROVATION | | 1:19 PMMRN: [id number] #: [id number] of : | | | 9Admit Type: AmbulatoryAge: 57Room: [facility] 01Gender: MaleNote | | | Status: FinalizedAttending MD: Emmanuel Daniel , MDProcedure: | | | Upper GI endoscopyIndications: Diarrhea, Weight | | | lossProviders: Emmanuel Daniel MD, Maria Isabel Morris RN, | | | Kim Hicks, Instructor Of Spanish, Jarett | | | Sapna Barakat MD [...] the anesthesiologist and | | | the emergency medical technician/driver in the endoscopy suite. Mental Status | [...] Out: 1:31:13 PM | | | [facility], [address] [facility] | | | [place] [address] | | | - Discharge patient to [...] Out: 1:31:13 PM | | | [facility], [facility] [address] [place], [place] | | | [address] | | + + -+ + +---------+ [...] 12/24/2017 | [facility]ATION | | 1:17 PMMRN: [id number] #: [id number] of : | | | 9Admit Type: AmbulatoryAge: 57Room: [facility] 01Gender: MaleNote | | | Status: FinalizedAttending MD: Emmanuel Daniel , MDProcedure: | | | ColonoscopyIndications: Clinically significant diarrhea of | | | unexplained originProviders: Emmanuel Daniel MD, Maria Isabel | | | Arturo, RN, Kim Hicks, Instructor Of Spanish, | | | Jarett Barakat MD (Anesthesia [...] | | | the anesthesiologist and the emergency medical technician/driver in the endoscopy suite. | | | [...] Scope In: 1:32:55 PMScope Out: 1:48:57 PM [facility] | | | [facility], [facility] [place] [place] [address] | | | [phone] | | | - Await pathology results. [...] |Scope Out: 1:48:57 PM | | | [facility], [address] [facility], [place], [place] | | | [address] | | + + -+ + +---------+ [...] | colonic mucosa with focal adenomatous change. [facility]:C2NR | | | GROSS DESCRIPTION: Received in four parts. A. Received in | | | formalin labeled "Moe [place], A." and labeled "duodenal bx" on | [...] developed and its performance characteristics determined by [facility] | | | [facility]. It has not been cleared or approved by the U.S. Food | | | and Drug Administration. The FDA has determined that such clearance | | | or approval is not necessary. This test is used for clinical | | | purposes. It should not be regarded as investigational or for | | | research. [facility] is certified under the Clinical | | | Laboratory Improvement Amendments of 1988 (CLIA) as qualified to | | | perform high complexity clinical laboratory testing. This assay | | | has not been validated for specimens that have been decalcified. | | | PERFORMING LABORATORY: Tissue processing and slide preparation were | | | performed by [facility], [address], [facility] | | | [place] [address] (Technical Sales Representatives: Evan Frausto M.D. CLIA#: | | | [id number]). Professional interpretation was performed by [facility] | | | [facility], [address], [place] [address] | | | (Technical Sales Representatives: Evan Frausto M.D.; IA#: [id number]). | | | Diagnostician: Rafael Bales MD [...]
--- OUTSIDE RECORDS SUMMARY | ~2020-06-15 | XMS | Encounter Summary ---
Demographics + + + | Address | [address] | | | [place] [address] | + + + | Home Phone [...] Providers + +------+ + | Care Ux Researcher Name | Role | Phone | [...] | | Ascending | Silvia | Jaimee [place] | | | | | aortic | [place] | [place], | | | | | aneurysm | [address] | [place] [address] | | | | | (HCC) | [place] | Phone: | | | | | Abdominal | [place], | [phone] | | | | | aortic | [place] | Fax: | | | | | aneurysm | [address] | [phone] | | | | | (AAA) | Phone: | | | | | | without | [phone] | | | | | | rupture | Fax: | | | | | | (HCC) | [phone] | | | | | | Procedures [...] | unspecified | MD Martell | [address] | | | | | type ER | [address] | [address] | | | | | FUP | [place] | [place], | | | | | Procedures | [place], [place] | [place] [address] | | | | | FUP - SUW & | [address] | Phone: | | | | | MISHA PT, LAST | Phone: | [phone] | | | | | SEEN | [phone] | Fax: | | | | | 08-24-18 | Fax: | [phone] | | | | | | [phone] | | +--------+ + + + + + Encounter Details +--------+---------+ + + + | Date | Type | Department | Care Team | Description | +--------+---------+ + + + | 01/11/ | Office | [facility] | Silvia, | Coronary artery | | 2018 | Visit | CARDIOLOGY [address] | [place] [address] | disease involving | | | | [place], | [place], | port lions coronary | | | | [place] [address] | [place] [address] | artery of port lions | | | | [phone] | [phone] | heart without angina | | | [...] encounter Patient Instructions Patient Instructions Jennifer February, Ammunition And Explosives Handler - 01/11/2019 12:45 PM PST 1. You [...] Check-in time: 1. Check in at the [facility]. 2. Do not [...] procedure. 6. Make sure you have a pick up truck driver to take you home. Your pick up truck driver will also need to sign [...] hospital line at and ask for nursing public area supervisor t o let them know you are cancelling . Blood test: Non-fasting Date Due: same day as CTA Where to go for labs: [facility]- [address] [facility]. [...] non-critical coronary artery d isease involving port lions coronary artery of port lions heart without angina pectoris, essential h ypertension, [...] health care Coronary artery disease involving port lions coronary artery of port lions heart without angina pectoris Cannabis abuse, daily [...] DOSE, CALL 911 100 tablet 3 [place]-3 Fatty Acids (SALMON OIL-1000 PO) CAPS, [...] was found Confirmed by ANGELA MARADIAGA MD ([id number]) on 01/03/2019 8:10:39 PM LAB RESULTS reviewed [...] reports from [facility]: Xr Chest Ap Portable Result [...] ASSESSMENT: 1. Non-critical Coronary artery disease involving port lions coronary artery of port lions heart [facility] angina pectoris: A. Normal exercise sestamibi [...] Symptoms with moderate exertion of t he [place] Heart Association functional class. Heart failure stage [...] Emergency Hospital on 01/30[facility]2013. Patient had spontaneous PVC's [...] go back in 3 days t o [place] for an attempt of ablation under [...] he has any further problems Christine Clemente Ammunition And Explosives Handler am acting as a scribe on behalf of, and in the pres ence of PARISA Lomas. - Reji Newman 01/11/2019 13:46 Janeen Clemente ARNP, personally performed the services described in this documentati on, as scribed in my presence and it is both accurate and complete. -PARISA Lomas 01/11/2019 Portions of this chart may have been created with Yorder voice recognition software. Occasi onal wrong-word or [...] | | | | | | [place] [address] | | | | | | [phone] | | | | | | | [...] + | Coronary artery disease involving port lions coronary artery of port lions heart without | | angina pectoris - [...]
--- OUTSIDE RECORDS SUMMARY | ~2020-06-15 | XMS | Encounter Summary ---
Demographics + + + | Address | [address] | | | [place] [address] | + + + | Home Phone [...] Providers + +------+ + | Care Wash Worker Name | Role | Phone | [...] + + | 06/24/ | Telephone | [facility] | Daljit Singletary, | Lab Order | | 2018 | | CARDIOLOGY [address] | [address] | | | | | [place], | [place], | | | | | [place] [address] | [place] [address] | | | | | [phone] | [phone] | | | | | | | [...] at 15:54 elephone Encounter - Rachel Carrasquillo Campground Cleaning Attendant - 06/24/2018 3:42 PM PDTPatient is needing a fasting L ipid panel drawn. Voicemail not yet set up. Electronically signed by Rachel Carrasquillo Campground Cleaning Attendant at 01/2018 3:42 PM PDTdocumented in this [...] W | | | | | | [place], | | | | | | [place] [address] | | | | | | [phone] | | | | | | | [...] 06/24/2018, Expires: | | | | | elem coronary | 06/24/2019 | | | | | artery of elem | | | | | | heart without angina | | | | | | pectoris | | | | | | Hyperlipidemia, | | | | | | mixed | | + +------+--------+ + + documented as of this encounter Visit Diagnoses + + | Diagnosis | + + | Coronary artery disease involving elem coronary artery of elem heart without | | angina pectoris - Primary | + + | Hyperlipidemia, mixed Mixed hyperlipidemia | + + documented in this encounter"
--- OUTSIDE RECORDS SUMMARY | ~2020-06-15 | XMS | Encounter Summary ---
Demographics + + + | Address | [address] | | | [place] [address] | + + + | Home Phone [...] Team Providers + +------+ + | Care Derivatives Trader Name | Role | Phone | [...] | | | | [place] | [phone] | | | | | [address] | | | | | | [phone] | | | +--------+ + + + [...] + + + +---------+ + + | [place]-3 Fatty | CAPS, one capsule by | [...] | | | | | | [place] [address] | | | | | | [phone] | | | | | | | [...]
--- OUTSIDE RECORDS SUMMARY | ~2020-06-15 | XMS | Encounter Summary ---
Demographics + + + | Address | [address] | | | [place] [address] | + + + | Home Phone [...] Providers + +------+ + | Care Bundle Person Name | Role | Phone | [...] + | 07/31/ | Telephone | [facility] | Emmanuel Daniel MD | Medication Refill | | 2019 | | GASTROENTEROLOGY | [address], [place] | | | | | [address] [place] | [address] [place], [place] | | | | | [address] [place], [place] | [address] | | | | | [address] | | | | | | [phone] | | | +--------+ + + + [...] | | | | | | [place] [address] | | | | | | [phone] | | | | | | | | +--------+ + + + + documented as of this encounter Visit Diagnoses Not on filedocumented in this encounter"
--- OUTSIDE RECORDS SUMMARY | ~2020-06-15 | XMS | Encounter Summary ---
Demographics + + + | Address | [address] | | | [place] [address] | + + + | Home Phone [...] Providers + +------+ + | Care Ordnance Keeper Name | Role | Phone | [...] | and swelling) | | | | [place], | [place], | | | | | [place] [address] | [place] [address] | | | | | [phone] | [phone] | | | | | | | [...] | | | | | | [place] [address] | | | | | | [phone] | | | | | | | | +--------+ + + + + documented as of this encounter Visit Diagnoses Not on filedocumented in this encounter
--- OUTSIDE RECORDS SUMMARY | ~2020-06-15 | XMS | Encounter Summary ---
Demographics + + + | Address | [address] | | | [place] [address] | + + + | Home Phone [...] Team Providers + +------+ + | Care Seat Cover Maker Name | Role | Phone | + +------+ + PCP | Unavailable | + +------+ + Encounter Details +--------+ + + + + | Date | Type | Department | Care Team | Description | +--------+ + + + + | 04/28/ | [facility] | [facility] | Jonathan, | | | 2008 | Encounter | MED CTR EMERGENCY | Martell Cr MD [address] | | | | | CENTER [address] | [address] | | | | | [place] | [place] [address] | | | | | [address] | [phone] | | | | | [phone] | | | +--------+ + + + [...] | | | | | | [place] [address] | | | | | | [phone] | | | | | | | | +--------+ + + + + documented as of this encounter Visit Diagnoses Not on filedocumented in this encounter"
--- OUTSIDE RECORDS SUMMARY | ~2020-06-15 | XMS | Encounter Summary ---
Demographics + + + | Address | [address] [place] [address] [address] | | | [place] [address] | + + + | Home Phone [...] [place] | | | | | [address] | | + + + + + Care Team Providers + +------+ + | Care Organ Fixer Name | Role | Phone | [...] | | Bradycardia | | | | [facility] | | | | | | and Healing, | | | | | | [address] | | | | | | [place], [place] | | | | | | [address] | | | | | | [phone] | | | +--------+------+ + + + [...] Way Lab) | [facility] | | [place] [address] | REGIONAL | | [place] [address] | LABORATORY | + + + + + + + + | Performing | Address | City/State/Zipcode | Phone Number | | Organization | | | | + + + + + | [facility] | [address] | [place] [address] | | | LABORATORY | | | [...] Way Lab) | | | [facility] [place] [address] | | | [place] [address] | | + + + + + + + + | Performing | Address | City/State/Zipcode | Phone Number | | Organization | | | | + + + + + | [facility] | [address] | [place] [address] | | | LABORATORY | | | [...] | | | DEPARTMENT | | | [place] | | | OF | | | [...] + + + + + | [facility] | [address] | [place] [address] | | | PATHOLOGY | [address] | | | + + + + + documented in this encounter Visit Diagnoses + + | Diagnosis | + + | Chest pain Chest pain, unspecified | + + | Bradycardia Other specified cardiac dysrhythmias | + + documented in this encounter"
--- OUTSIDE RECORDS SUMMARY | ~2020-06-15 | XMS | Encounter Summary ---
Demographics + + + | Address | [address] | | | [place] [address] | + + + | Home Phone [...] Team Providers + +------+ + | Care Completion Manager Name | Role | Phone | [...] + | 06/26/ | Office | [facility] | Geri Angel, | Coronary artery | | 2015 | Visit | CARDIOLOGY [address] | ELECTROCARDIOGRAPH TECHNICIAN [address] | disease involving | | | | [address] [place], | [place], [place] | cabazon coronary | | | | [place] [address] | [address] | artery without | | | | [phone] | | angina pectoris | | | [...] not occur with exertion. He went to [facility] at the end of for [...] it. He is planning to travel [place] the [place] for up to a month due to his [id number] having a significant stroke there MEDICAL, SURGICAL, [...] Coronary artery disease involving cabazon coronary artery without angina pectoris Cannabis abuse, [...] 3rd dose, call 911 25 tablet 11 [place]-3 Fatty Acids (SALMON OIL-1000 PO) CAPS, one [...] Daily. 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 Leads: Right atrium and right [...] go back in 3 days to [place] for an attempt of ablation under general [...] dizziness. He is in class I-II of [place] Heart Association functional class. T here are [...] this chart may have been created with ModCloth voice recognition software. 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 Leads: Right atrium and right | | [...] + + | Coronary artery disease involving cabazon coronary artery without angina pectoris - | | Primary | + + | SINUS BRADYCARDIA Sinoatrial node dysfunction | + + | Essential hypertension Unspecified essential hypertension | + + | Hyperlipidemia Other and unspecified hyperlipidemia | + + | Symptomatic PVCs Other premature beats | + + documented in this encounter
--- OUTSIDE RECORDS SUMMARY | ~2020-06-15 | XMS | Encounter Summary ---
Demographics + + + | Address | [address] | | | [place] [address] | + + + | Home Phone [...] Providers + +------+ + | Care Quality Process Lead Name | Role | Phone | [...] + | 08/30/ | Telephone | [facility] | Silvia, | Other (test results) | | 2014 | | CARDIOLOGY [address] | Janeen WINTER INTERN [address] | | | | | [place], | [place], | | | | | [place] [address] | [place] [address] | | | | | [phone] | [phone] | | | | | | | [...] | | | | | | [place] [address] | | | | | | [phone] | | | | | | | | +--------+ + + + + documented as of this encounter Visit Diagnoses Not on filedocumented in this encounter"
--- OUTSIDE RECORDS SUMMARY | ~2020-06-15 | XMS | Encounter Summary ---
Demographics + + + | Address | [address] | | | [place] [address] | + + + | Home Phone [...] Team Providers + +------+ + | Care Coffee Brewer Name | Role | Phone | [...] 2019 | | GASTROENTEROLOGY | [address], [place] | | | | | [address] [place] | [address] [place], [place] | | | | | [address] [place], [place] | [address] | | | | | [address] | | | | | | [phone] | | | +--------+ + + + [...] this phone call to Dr. Rios at [facility], as Dr. Daniel is not seeing arian ents anymore, and for him to wait for Dr. Bowen office to call him back.Electronically si gned by Kailyn Gutierrez CMA at 10/06/2019 8:22 AM PSTTelephone Encounter - Kailyn Gutierrez CMA - 10/04/2019 4:35 PM PSTPatient has seen Bridgette Rios MD at [facility] on 09/28/2019, and h as a phone call into her office as well.Electronically signed by Kailyn Gutierrez CMA at 09/22 4:36 PM PSTTelephone Encounter - Amada Starr - 10/04/2019 9:03 AM Amilcar Krishnamurthy, would like a return call from clinical staff for triage. Patient states that he is doing worse than ever. Will route to clinical staff, please advise. Phone number: [phone] signed by Amada Starr at 10/04/2019 9:17 [...] | | | | | | [place] [address] | | | | | | [phone] | | | | | | | | +--------+ + + + + documented as of this encounter Visit Diagnoses Not on filedocumented in this encounter"
--- OUTSIDE RECORDS SUMMARY | ~2020-06-15 | XMS | Encounter Summary ---
Demographics + + + | Address | [address] | | | [place] [address] | + + + | Home Phone [...] + +------+ + | Care Manager Of Digital Name | Role | Phone | + +------+ + PCP | Unavailable | + +------+ + Encounter Details +--------+ + + + + | Date | Type | Department | Care Team | Description | +--------+ + + + + | 06/17/ | Hospital | [facility] | | | | 2008 | Encounter | MED CTR EMERGENCY | | | | | | [address] | | | | | | [place] | | | | | | [address] | | | | | | [phone] | | | +--------+ + + + [...] | | | | | | [place] [address] | | | | | | [phone] | | | | | | | | +--------+ + + + + documented as of this encounter Visit Diagnoses Not on filedocumented in this encounter"
--- OUTSIDE RECORDS SUMMARY | ~2020-06-15 | XMS | Encounter Summary ---
Demographics + + + | Address | [address] | | | [place] [address] | + + + | Home Phone [...] + +------+ + | Care Storage Battery Tester Name | Role | Phone | [...] W | | | | | [place], | [place], | | | | | [place] [address] | [place] [address] | | | | | [phone] | [phone] | | | | | | | [...] on 07/31/19 at 15:24 elephone Julia Caceres Electronic Technician - 07/31/2019 1:37 PM PDTPatient scheduled for an nayan ointment on 08/01/2019 and is needing a fasting Lipid panel. Please order, thank you. Spoke to patient, he states that he will come in the morning to have his fasting labs done before his appointment. Electronically signed by Julia Allen Electronic Technician at 07/2019 1:40 PM PDTdocumented in this [...] | | | | | | [place], | | | | | | [place] [address] | | | | | | [phone] | | | | | | | [...]
--- OUTSIDE RECORDS SUMMARY | ~2020-06-15 | XMS | Encounter Summary ---
Demographics + + + | Address | [address] | | | [place] [address] | + + + | Home Phone [...] Providers + +------+ + | Care Sub Acute Care Nurse Name | Role | Phone [...] [address] | | | | | [place], | [place], | | | | | [place] [address] | [place] [address] | | | | | [phone] | [phone] | | | | | | | [...] | | | | | | [place] [address] | | | | | | [phone] | | | | | | | [...] Comment | + + | [facility] | + + + +---------+ + + [...] Comment | + + | [facility] | + + + +---------+ + + [...]
--- OUTSIDE RECORDS SUMMARY | ~2020-06-15 | XMS | Encounter Summary ---
Demographics + + + | Address | [address] | | | [place] [address] | + + + | Home Phone [...] Providers + +------+ + | Care Hospitality Job Titles Name | Role | Phone | + [...] + + | 05/01/ | Refill | [facility] | Kirk French | Medication Orders | | 2020 | | [facility] | MD Bre[address] | | | | | PR[address] | [address] | | | | | [address] | [place] [address] | | | | | [place], [place] | [phone] | | | | | [address] | | | | | | [phone] | | | +--------+--------+ + + + [...] Miscellaneous Notes Addendum Note - Hailey Girard, Clinic Cma - 05/02/2020 2:30 PM PDT Add ended [...] left ankle. Please send both medication to [id number] - [place], [place] - [address] [phone] (Phone) Sia Vasquez Ext 4921 elephone Encounter - Hailey Girard, Clinic Cma - 05/02/2020 8:42 AM PDTLeft VM to patient to call back and let us know what strength of Lyrica he is on so provider can prescribed. E lectronically signed by Hailey Padron [facility] at 05/02/2020 8:43 AM PDTTelephone Encounter - Kirk French MD - 05/02/2020 8:03 AM PDTOk as requestedEl ectronically signed by Kirk French MD at 05/02/2020 8:03 AM PDTTelephone Encounter - Geri Bear [facility] - 05/01/2020 1:50 PM PDTPlease adviseElectronically si gned by Geri Bear [facility] at 05/01/2020 1:50 PM PDTTelephone Encounter - Kailyn Gomes - 05/01/2020 1:48 PM PDTFred, is calling regarding Medication Orders and would like a call back. Additional Call Details: Patient states he is no longer going to the pain management clinic and is requesting for Dr. French to start prescribing Lyrica to help with the pain. Yasmany crowe call him back at [phone] If this is a symptom based call, was patient offered triage? Not Applicable If this is a symptom based call and you were unable to immediately transfer the call to a lorraine bellamy community health advisor was caller made aware that if at [...] | | | | | | [place] [address] | | | | | | [phone] | | | | | | | | +--------+ + + + + documented as of this encounter Visit Diagnoses + + | Diagnosis | + + | Left ankle pain, unspecified chronicity - Primary | + + documented in this encounter"
--- OUTSIDE RECORDS SUMMARY | ~2020-06-15 | XMS | Encounter Summary ---
Demographics + + + | Address | [address] | | | [place] [address] | + + + | Home Phone [...] Team Providers + +------+ + | Care Interpreter Deaf Name | Role | Phone | + [...] + + | 05/02/ | Telephone | [facility] [place] | Silvia, | Results | | 2020 | | CARDIOLOGY [address] | PARISA [place] [address] | | | | | [place], | [place], | | | | | [place] [address] | [place] [address] | | | | | [phone] | [phone] | | | | | | | [...] RN on 05/03/20 at 11:31 AM elephone [facility] - Janeen Vega ARNP - 05/02/2020 4:58 [...] | | | | | | [place] [address] | | | | | | [phone] | | | | | | | | +--------+ + + + + documented as of this encounter Visit Diagnoses Not on filedocumented in this encounter"
--- OUTSIDE RECORDS SUMMARY | ~2020-06-15 | XMS | Encounter Summary ---
Demographics + + + | Address | [address] | | | [place] [address] | + + + | Home Phone [...] Providers + +------+ + | Care Door Core Assembler Name | Role | Phone | [...] + + | 01/01/ | Telephone | [facility] | Kirk French | Other ([facility]) | | 2020 | | [facility] | MD [address] | | | | | PR[address] C[address] | [address] | | | | | [address] | [place] [address] | | | | | [place], [place] | [phone] | | | | | [address] | | | | | | [phone] | | | +--------+ + + + [...] Miscellaneous Notes Telephone Encounter - Geri Bear, Family Consumer Science Fcs Teacher - 01/01/2020 11:09 AM PSTCalled and spoke with Kasie, states he will need to go to [facility] [place] for this as their ma chine will allow patients to have pacemaker. Let her know we have no order for an MRI for hi m to be done, she states that she will contact patient in regards to this. Electronically si gned by Geri Bear, Family Consumer Science Fcs Teacher at 01/01/2020 11:09 AM PSTTelephone Encounter - Danielle london Rosy - 01/01/2020 8:33 AM PSTJuirineo, is calling regarding Other (Pacemaker) and would like a call back. Additional Call Details: States patient's pacemaker is not MRI compatible and is requestin g a call back to discuss referring patient to a location that is. Please call her back at [phone] and ask for Kasie or Christel. If this is a symptom based call, was patient offered triage? Not Applicable If this is a symptom based call and you were unable to immediately transfer the call to a p mia collar worker was caller made aware that if at [...] | | | | | | [place] [address] | | | | | | [phone] | | | | | | | | +--------+ + + + + documented as of this encounter Visit Diagnoses Not on filedocumented in this encounter"
--- OUTSIDE RECORDS SUMMARY | ~2020-06-15 | XMS | Encounter Summary ---
Demographics + + + | Address | [address] | | | [place] [address] | + + + | Home Phone [...] Team Providers + +------+ + | Care Voice Network Administrator Name | Role | Phone [...] Refill | | 2014 | | [facility] [place] | DO [address] | | | | | [address] | [place] | | | | | [place] | [address] | | | | | [address] | | | | | | [phone] | | | +--------+--------+ + + + [...] | | | | | | [place] [address] | | | | | | [phone] | | | | | | | | +--------+ + + + + documented as of this encounter Visit Diagnoses Not on filedocumented in this encounter"
--- OUTSIDE RECORDS SUMMARY | ~2020-06-15 | XMS | Encounter Summary ---
Demographics + + + | Address | [address] | | | [place] [address] | + + + | Home Phone [...] Providers + +------+ + | Care Jack Strip Assembler Name | Role | Phone | + +------+ + PCP | Unavailable | + +------+ + Encounter Details +--------+ + + + + | Date | Type | Department | Care Team | Description | +--------+ + + + + | [facility] | Hunter Antunez, | | | 2009 - | Encounter | MED CTR MED ONC | [address] | | | | | [address] [place] | [place] | | | 07/24/ | | [place] [address] | [id number] | | | 2009 | | [phone] | | | +--------+ + + + [...] | | | | | | [place] [address] | | | | | | [phone] | | | | | | | | +--------+ + + + + documented as of this encounter Visit Diagnoses Not on filedocumented in this encounter"
--- OUTSIDE RECORDS SUMMARY | ~2020-06-15 | XMS | Encounter Summary ---
Demographics + + + | Address | [address] | | | [place] [address] | + + + | Home Phone [...] Providers + +------+ + | Care Vegetable Loader Machine Operator Name | Role | Phone [...] 2018 | | GASTROENTEROLOGY | [address] [place], [place] | | | | | [address] [place] | [address] [place], [place] | | | | | [address] [place], [place] | [address] | | | | | [address] | | | | | | [phone] | | | +--------+ + + + [...] | | | | | | [place] [address] | | | | | | [phone] | | | | | | | [...]
--- OUTSIDE RECORDS SUMMARY | ~2020-06-15 | XMS | Encounter Summary ---
Demographics + + + | Address | [address] | | | [place] [address] | + + + | Home Phone [...] Providers + +------+ + | Care Manager Monitoring Name | Role | Phone | + +------+ + | Kirk French MD | PCP | | + +------+ + Encounter Details +--------+ + + + + | Date | Type | Department | Care Team | Description | +--------+ + + + + | 10/25/ | Hospital | [facility] | Kirk French | Chronic pain | | 2017 | Encounter | MED CTR ULTRASOUND | MD Eva Guidry | disorder; Stomach | | | | [address] [place] | [address] | ache; Obesity, | | | | [place], [place] | [place] [address] | unspecified | | | | [address] | [phone] | classification, | | | | [phone] | | unspecified obesity | | | [...] + + + +---------+ + + | [place]-3 Fatty | CAPS, one capsule by [...] | | | | | | [place] [address] | | | | | | [phone] | | | | | | | [...]
--- OUTSIDE RECORDS SUMMARY | ~2020-06-15 | XMS | Encounter Summary ---
Demographics + + + | Address | [address] | | | [place] [address] | + + + | Home Phone [...] Providers + +------+ + | Care Spray Maker Name | Role | Phone | [...] | | | | Sinoatrial | Geri, FIGURE REFINISHER AND REPAIRER | [address] | | | | | node | [address] | [place], | | | | | dysfunction | [place] | [place] | | | | | (HCC) | [place], [place] | [address] | | | | | Coronary | [address] | Phone: | | | | | artery | Phone: | [phone] | | | | | disease | [phone] | Fax: | | | | | involving | Fax: | [phone] | | | | | [place] | [phone] | | | | | | coronary | | | | | | | artery of | | | | | | | [place] heart | | | | | [...] | Visit | CARDIOLOGY [address] | FIGURE REFINISHER AND REPAIRER [address] | dysfunction (HCC) | | | | [address] [place], | [place], [place] | with symptomatic | | | | [place] [address] | [address] | bradycardia (Primary | | | | [phone] | | Dx); Coronary | | | | | | artery disease | | | | | | involving [place] | | | | | | coronary artery of | | | | | | [place] heart without | | | | [...] Preventative health care Coronary artery disease involving [place] coronary artery without angina pectoris Cannabis [...] by mouth every evening. 90 tablet 3 [facility] [...] 3rd dose, call 911 100 tablet 3 [place]-3 Fatty Acids (SALMON OIL-1000 PO) CAPS, one [...] scanned Paceart documentation and device PDF in [employer]ia for interrogation (with progr amming changes) performed [...] attenuation cannot completely be ruled out. [facility] 12/25/13, shows non critical coronary artery [...] this chart may have been created with Gucash voice recognition software. Occasi onal wrong-word or [...] Device Interrogation 2. Coronary artery disease involving [place] coronary artery of [place] heart without angina pectoris I25.10 414.01 [...] | | | | | | [place] [address] | | | | | | [phone] | | | | | | | [...] [facility] | [facility] | | [place] Room Number SARAH Patient | [facility] | | [id number] Date of Study 06/16/2016 Number | - IMAGING | | Visit Number [id number] | | | Referring Physician JOSE ARMANDO GARCIA Number Date of 1960 | | | Transplant Worker LUIS FERNANDO DUARTE Age | | | 56 year(s) Interpreting | | | GURJIT TROY | | | Executive Assistant SYDNI CAGLE | | | Gender | [...] BARRY Room Number SARAH | | Patient [id number] Date of Study 06/16/2016 Number Visit Number | | [id number] Referring Physician JOSE ARMANDO GARCIA Number | | Date of 1960 Transplant Worker LUIS FERNANDO DUARTE Age | | 56 year(s) Interpreting GURJIT TROY | | Executive Assistant SYDNI CAGLE, | | Gender Male NurseProcedureType [...] [address] | [place] | [phone] | | [facility] | | [address] | | | - IMAGING | | [...] | | 2. Coronary artery disease involving [place] coronary artery of | | | [place] heart without angina pectoris I25.10 414.01 [...] + + | Coronary artery disease involving [place] coronary artery of [place] heart without | | angina pectoris [...]
--- OUTSIDE RECORDS SUMMARY | ~2020-06-15 | XMS | Encounter Summary ---
Demographics + + + | Address | [address] | | | [place] [address] | + + + | Home Phone [...] Team Providers + +------+ + | Care Dural Mechanic Name | Role | Phone | [...] + | 06/27/ | Telephone | [facility] | Michael Amanda, | ED Follow-up (s/p | | 2013 | | MEDICINE [place] | DO [address] | [facility]) | | | | [address] | [place] | | | | | [place] | [address] | | | | | [address] | | | | | | [phone] | | | +--------+ + + + [...] aneurysm may be enlarged, though CT at [facility] showed no changes. He is sending reports to [facility] ([place], [place]) for review by cardiac team there. [...] | | | | | | [place] [address] | | | | | | [phone] | | | | | | | | +--------+ + + + + documented as of this encounter Visit Diagnoses Not on filedocumented in this encounter
--- OUTSIDE RECORDS SUMMARY | ~2020-06-15 | XMS | Encounter Summary ---
Demographics + + + | Address | [address] | | | [place] [address] | + + + | Home Phone [...] Providers + +------+ + | Care Directory Carrier Name | Role | Phone | [...] changed his mind) | | | | [place], | [place], | | | | | [place] [address] | [place] [address] | | | | | [phone] | [phone] | | | | | | | [...] | | | | | | [place] [address] | | | | | | [phone] | | | | | | | | +--------+ + + + + documented as of this encounter Visit Diagnoses Not on filedocumented in this encounter"
--- OUTSIDE RECORDS SUMMARY | ~2020-06-15 | XMS | Encounter Summary ---
Demographics + + + | Address | [address] | | | [place] [address] | + + + | Home Phone [...] Providers + +------+ + | Care Truck Railroad And Bus Motor Mechanic Name | Role | Phone | [...] | | | | Sinoatrial | Jose, E BUSINESS PROJECT MANAGER | [address] | | | | | node | [address] | [place], | | | | | dysfunction | [place] | [place] | | | | | (HCC) | [place], [place] | [address] | | | | | Coronary | [address] | Phone: | | | | | artery | Phone: | [phone] | | | | | disease | [phone] | Fax: | | | | | involving | Fax: | [phone] | | | | | [place] | [phone] | | | | | | coronary | | | | | | | artery of | | | | | | | [place] heart | | | | | | [...] | | | | Sinoatrial | Jose, E BUSINESS PROJECT MANAGER | [address] | | | | | node | [address] | [place], | | | | | dysfunction | [place] | [place] | | | | | ([facility]) | [place], [place] | [address] | | | | | Coronary | [address] | Phone: | | | | | artery | Phone: | [phone] | | | | | disease | [phone] | Fax: | | | | | involving | Fax: | [phone] | | | | | [place] | [phone] | | | | | | coronary | | | | | | | artery of | | | | | | | [place] heart | | | | | | [...] + + + + | 06/16/ | [facility] | [facility] | Jose Angel, | Sinoatrial node | | 2016 | Encounter | MED CTR ECHO [address] | E BUSINESS PROJECT MANAGER [address] | dysfunction (HCC) | | | | [place] | [place] [facility] [place] | with symptomatic | | | | [place] [address] | [address] | bradycardia; | | | | [phone] | | Coronary artery | | | | | Juvenal Blake, | disease involving | | | | | Technologist | [place] coronary | | | | | | artery of [place] | | | | | | heart [...] + + + +---------+ + + | [place]-3 Fatty | CAPS, one capsule by | [...] | | | | | | [place] [address] | | | | | | [phone] | | | | | | | [...] involving | | | | | | [place] coronary | | | | | | artery of [place] | | | | | | heart [...] Patient | [facility] | | [id number] Date of Study 06/16/2016 Number | - IMAGING | | Visit Number [id number] | | | Referring Physician JOSE ARMANDO JOSE Number Date of 1960 | | | Recreational Aide LUIS FERNANDO RIGOBERTO RDS Age | | | 56 year(s) Interpreting | | | GURJIT TROY | | | Product Trainer SYDNI CAGLE, | | | MD Gender | | | Male Nurse Procedure Type of Study TTE | | | procedure: ECHO Complete. Procedure dateDate: 06/16/2016Start: 10:55 | | | AM Technical Quality: Adequate visualizationStudy Location: Echo | | | LabIndications: CAD [place] CORONARY ARTERY 414.01/ I25.10 and | | [...] BARRY Room Number SARAH | | Patient [id number] Date of Study 06/16/2016 Number Visit Number | | [id number] Referring Physician JOSE ARMANDO JOSE Number | | Date of 1960 Recreational Aide GABBIROLYGustavo RIGOBERTO DUARTE Age | | 56 year(s) Interpreting GURJIT TROY | | Product Trainer SYDNI CAGLE, | | Gender Male NurseProcedureType of Study TTE | | procedure: ECHO Complete.Procedure dateDate: 06/16/2016Start: 10:55 AMTechnical Quality: | | Adequate visualizationStudy Location: Echo LabIndications: CAD [place] CORONARY ARTERY | | 414.01/ I25.10 and [...] [address] | [place] | [phone] | | [facility] | | [address] | | | - IMAGING | | [...] + + | Coronary artery disease involving [place] coronary artery of [place] heart without | | angina pectoris | + + | Ascending thoracic aortic aneurysm (HCC) Thoracic aneurysm without mention of rupture | + + documented in this encounter"
--- OUTSIDE RECORDS SUMMARY | ~2020-06-15 | XMS | Encounter Summary ---
Demographics + + + | Address | [address] [place] [address] [address] | | | [place] [address] | + + + | Home Phone [...] [place] | | | | | [address] | | + + + + + Care Team Providers + +------+ + | Care Fence Manufacture Supervisor Name | Role | Phone | [...] | | [address] | [place], [place] | | | | | for Health and | [address] | | | | | [facility] | [phone] | | | | | [place], [place] | | | | | | [address] | | | | | | [phone] | | | +--------+ + + + [...]
--- OUTSIDE RECORDS SUMMARY | ~2020-06-15 | XMS | Encounter Summary ---
Demographics + + + | Address | [address] | | | [place] [address] | + + + | Home Phone [...] Providers + +------+ + | Care Vascular Tech Name | Role | Phone | [...] + | 10/04/ | Telephone | [facility] | Gemini Shaistakenneth, | Other (Records sent) | | 2012 | | CARDIOLOGY [address] | MD [address] | | | | | [place], | [place], | | | | | [place] [address] | [place] [address] | | | | | [phone] | [phone] | | | | | | | [...] | | | | | | [place] [address] | | | | | | [phone] | | | | | | | | +--------+ + + + + documented as of this encounter Visit Diagnoses Not on filedocumented in this encounter"
--- OUTSIDE RECORDS SUMMARY | ~2020-06-15 | XMS | Encounter Summary ---
Demographics + + + | Address | [address] | | | [place] [address] | + + + | Home Phone [...] Providers + +------+ + | Care Straight Truck Driver Name | Role | Phone [...] [address] | | | | | [address] | [place] [address] | | | | | [phone] | [phone] | | | | | | | [...] | | | | | | [place] [address] | | | | | | [phone] | | | | | | | [...]
--- OUTSIDE RECORDS SUMMARY | ~2020-06-15 | XMS | Encounter Summary ---
Demographics + + + | Address | [address] | | | [place] [address] | + + + | Home Phone [...] Providers + +------+ + | Care Contract Manager Name | Role | Phone | [...] | Aneurysmal | [place], | [address] | | | | | dilatation | PARISA Solis | [place], | | | | | (HCC) | [address] | [place] | | | | | Procedures | [place] | [address] | | | | | ECHO | [place], | Phone: | | | | | Complete | [place] | [phone] | | | | | | [address] | Fax: | | | | | | Phone: | [phone] | | | | | | [phone] | | | | | | | Fax: | | | | | | | [phone] | | +--------+--------+ + + + + Encounter Details +--------+ + + + + | Date | Type | Department | Care Team | Description | +--------+ + + + + | 11/16/ | Orders Only | [facility] [place] | [place], | Aneurysmal | | 2017 | | CARDIOLOGY [address] | PARISA Sol[address] | dilatation (HCC) | | | | [place], | [place], | (Primary Dx) | | | | [place] [address] | [place] [address] | | | | | [phone] | [phone] | | | | | | | [...] W | | | | | | [place], | | | | | | [place] [address] | | | | | | [phone] | | | | | | | [...] Room Number SARAH Patient | | | [id number] Date of Study 11/16/2017 Number | | | Visit Number [id number] | | | Referring Physician GURJIT TROY Number | | | ELIZABETHANGELIA SOLIS Date | | | of 1960 Python Engineer ROMAINE | | | MARISSA TIPTON Age 57 year(s) Interpreting | | | GURJIT TROY | | | Deli Cutter Slicer SYDNI CAGLE, | | | | | | Gender Male Nurse | | | Stress Inside Polisher Procedure Type of | | | Study [...] | | | EF | | | Rcjntslsk32% Left Ventricle Diastolic Dimension: 5.12 cm | [...] Volume: 46.33 ml | | | EF Rslkplgxz93% | | | | | | Left [...] BARRY Room Number SARAH | | Patient [id number] Date of Study 11/16/2017 Number Visit Number | | [id number] Referring Physician GURJIT TROY | | Number RHBROCKARD IRMA Date of | | 1960 Python Engineer ROMAINE TIPTON RDCS Age 57 year(s) | | Interpreting GURJIT TROY Deli Cutter Slicer | | SYDNI CAGLE MD | | [...] LA Volume: 46.33 ml | | EF Mgdkyjlfa35% Left Ventricle Diastolic Dimension: 5.12 cm Systolic [...] LA Volume: 46.33 ml | | EF Ajufsceed31% | | | | Left Ventricle | [...]
--- OUTSIDE RECORDS SUMMARY | ~2020-06-15 | XMS | Encounter Summary ---
Demographics + + + | Address | [address] | | | [place] [address] | + + + | Home Phone [...] Author | [facility] | [...] 2016 | | CARDIOLOGY [address] | TWIST MAKER [address] | | | | | [place], | [place], [place] | | | | | [place] [address] | [address] | | | | | [phone] | | | +--------+--------+ + + + [...] | | | | | | [place] [address] | | | | | | [phone] | | | | | | | | +--------+ + + + + documented as of this encounter Visit Diagnoses Not on filedocumented in this encounter"
--- OUTSIDE RECORDS SUMMARY | ~2020-06-15 | XMS | Encounter Summary ---
Demographics + + + | Address | [address] | | | [place] [address] | + + + | Home Phone [...] Team Providers + +------+ + | Care Hyperion Administrator Name | Role | Phone | [...] [address] | | | | | [place], | [place], | | | | | [place] [address] | [place] [address] | | | | | [phone] | | | | | | | [...] | | | | | | [place] [address] | | | | | | [phone] | | | | | | | [...] + | [address] | [address] | [place] | | | [facility] | | [address] | [...] | | | LAB | | | [place], | | | [...] + | [address] | [address] | [place], [place] | | | [facility] | | [address], [facility] | | | - LABORATORY [...]
--- OUTSIDE RECORDS SUMMARY | ~2020-06-15 | XMS | Encounter Summary ---
Demographics + + + | Address | [address] | | | [place] [address] | + + + | Home Phone [...] + +------+ + | Care Fire Control Officer Name | Role | Phone [...] + | 05/05/ | Telephone | [facility] | [place], | Appointment | | 2017 | | CARDIOLOGY [address] | [place] [address] | | | | | [place], | [place], | | | | | [place] [address] | [place] [address] | | | | | [phone] | [phone] | | | | | | | [...] pro vider is out. Called patient, left [facility] with request for patient to call [...] | | | | | | [place] [address] | | | | | | [phone] | | | | | | | | +--------+ + + + + documented as of this encounter Visit Diagnoses Not on filedocumented in this encounter"
--- OUTSIDE RECORDS SUMMARY | ~2020-06-15 | XMS | Encounter Summary ---
Demographics + + + | Address | [address] | | | [place] [address] | + + + | Home Phone [...] + +------+ + | Care Senior Software Tester Name | Role | Phone | [...] [address] | | | | | [address] | [place] [address] | | | | | [phone] | [phone] | | | | | | | [...] | | | | | | [place] [address] | | | | | | [phone] | | | | | | | [...]
--- OUTSIDE RECORDS SUMMARY | ~2020-06-15 | XMS | Encounter Summary ---
Demographics + + + | Address | [address] | | | [place] [address] | + + + | Home Phone [...] Providers + +------+ + | Care Glass Vial Filler Name | Role | Phone | + +------+ + | Kirk French MD | PCP | | + +------+ + Encounter Details +--------+ + + + + | Date | Type | Department | Care Team | Description | +--------+ + + + + | 01/21/ | Anesthesia | [facility] | Jarett Barakat | | | 2020 | Event | MED CTR MP INTRA OP | P, [address] | | | | | [address] | [address] [place], [place] | | | | | [place], [place] | [address] | | | | | [address] | | | | | | [phone] | | | +--------+ + + + [...] EVALUATION Moe Sanchez 59 y.o. male 1960 [id number] Procedure(s): COLONOSCOPY (N/A Rectum) Review of Systems [...] Preventative health care Coronary artery disease involving [place] coronary artery of [place] heart without angina pectoris Marijuana use Ascending [...] | | | | | | [place] [address] | | | | | | [phone] | | | | | | | | +--------+ + + + + documented as of this encounter Visit Diagnoses Not on filedocumented in this encounter
--- OUTSIDE RECORDS SUMMARY | ~2020-06-15 | XMS | Encounter Summary ---
Demographics + + + | Address | [address] | | | [place] [address] | + + + | Home Phone [...] Team Providers + +------+ + | Care Funnel Setter Name | Role | Phone | [...] + + | 07/12/ | Office | [facility] | Michael Amanda, | Preventative health | | 2013 | Visit | MEDICINE [place] | DO [address] | care (Primary Dx); | | | | [address] | [place], [place] | Prostate cancer | | | | [place] | [address] | screening; | | | | [address] | | Hypercholesterolemia | | | | [phone] | | ; Hypertension; | | | [...] clear cause was found. He has seen workers compensation attorney and has a rechec k plan. Possible [...] W | | | | | | [place], | | | | | | [place] [address] | | | | | | [phone] | | | | | | | [...] Primary Routine general medical examination at a [facility] | | care facility | + [...]
--- OUTSIDE RECORDS SUMMARY | ~2020-06-15 | XMS | Encounter Summary ---
Demographics + + + | Address | [address] | | | [place] [address] | + + + | Home Phone [...] Providers + +------+ + | Care Instructor Extension Work Name | Role | Phone | + [...] + + | 08/23/ | Telephone | [facility] | Anshumarianatesha Rashadotto, | Other (edema is | | 2015 | | CARDIOLOGY [address] | [address] | blood clots) | | | | [place], | [place], | | | | | [place] [address] | [place] [address] | | | | | [phone] | [phone] | | | | | | | [...] | | | | | | [place] [address] | | | | | | [phone] | | | | | | | | +--------+ + + + + documented as of this encounter Visit Diagnoses Not on filedocumented in this encounter"
--- OUTSIDE RECORDS SUMMARY | ~2020-06-15 | XMS | Encounter Summary ---
Demographics + + + | Address | [address] | | | [place] [address] | + + + | Home Phone [...] Providers + +------+ + | Care Medical Officer Psychiatry Name | Role | Phone | + +------+ + PCP | Unavailable | + +------+ + Encounter Details +--------+ + + + + | Date | Type | Department | Care Team | Description | +--------+ + + + + | 09/12/ | Hospital | [facility] | | | | 1993 | Encounter | MED CTR EMERGENCY | | | | | | [address] | | | | | | [place] | | | | | | [address] | | | | | | [phone] | | | +--------+ + + + [...] | | | | | | [place] [address] | | | | | | [phone] | | | | | | | | +--------+ + + + + documented as of this encounter Visit Diagnoses Not on filedocumented in this encounter"
--- OUTSIDE RECORDS SUMMARY | ~2020-06-15 | XMS | Encounter Summary ---
Demographics + + + | Address | [address] | | | [place] [address] | + + + | Home Phone [...] Providers + +------+ + | Care Technical Training Manager Name | Role | Phone | [...] | CARDIOLOGY [address] | MD [address] [place] | | | | | [place], | [place], | | | | | [place] [address] | [place] [address] | | | | | [phone] | [phone] | | | | | | | [...] | | | | | | [place] [address] | | | | | | [phone] | | | | | | | | +--------+ + + + + documented as of this encounter Visit Diagnoses Not on filedocumented in this encounter"
--- OUTSIDE RECORDS SUMMARY | ~2020-06-15 | XMS | Encounter Summary ---
Demographics + + + | Address | [address] | | | [place] [address] | + + + | Home Phone [...] Team Providers + +------+ + | Care Inweaver Name | Role | Phone | + [...] | 04/07/ | Office | [facility] | Matthew Uriarte | Left ureteral | | 2019 | Visit | [address] | MD Tawanna [address] | calculus (Primary | | | | [place], [place] | [place]VE [place] | Dx); Kidney stones | | | | [address] | [address] | | | | | [phone] | | | +--------+---------+ + + + [...] 13, 2019 at 7:45 AM at [facility]. Please report to the [facility] no later than 6:15 AM. REMEMBER: NOTHING TO EAT OR DRINK AFTER MIDNIGHT April 12, 2019. NO FISH OIL, ASPIRIN OR ASPIRIN PRODUCTS ONE WEEK PRIOR TO SURGERY. Tylenol and Advil are OK. You will need to get the following testing done prior to surgery: CBC, BMP YOU WILL NEED TO BRING A WAGE AND HOUR INVESTIGATOR WITH YOU THE DAY OF SURGERY. Call us at [phone] with any questions. [] Pain management booklet [...] 911, Disp: 100 ta blet, Rfl: 3 [place]-3 Fatty Acids (SALMON OIL-1000 PO), CAPS, one capsule by mouth daily twice daily , Disp: , Rfl: ondansetron (ZOFRAN ODT) 4 mg disintegrating tablet, Take 4 mg by mouth., Disp: , Rfl: ONE TOUCH DELICA LANCETS [facility], Check glucose as needed for hypoglycemia, Disp: [...] have not thoroughly proofread this note, and offset platemaker errors are very likely to occur. CC: [...] | | | | | | [place] [address] | | | | | | [phone] | | | | | | | [...]
--- OUTSIDE RECORDS SUMMARY | ~2020-06-15 | XMS | Encounter Summary ---
Demographics + + + | Address | [address] [place] [address] [address] | | | [place] [address] | + + + | Home Phone [...] [place] | | | | | [address] | | + + + + + Care Team Providers + +------+ + | Care Independent Distributor Name | Role | Phone | [...] 2019 | | Center at [facility] | MD [address] | | | | | [address] [place] | [place], [place] | | | | | for Health and | [address] | | | | | [facility] | [phone] | | | | | [place], [place] | | | | | | [address] | | | | | | [phone] | | | +--------+ + + + [...]
--- OUTSIDE RECORDS SUMMARY | ~2020-06-15 | XMS | Encounter Summary ---
Demographics + + + | Address | [address] | | | [place] [address] | + + + | Home Phone [...] Providers + +------+ + | Care Licensed Reactor Operator Name | Role | Phone [...] | MD [address] | [address] | | | | | hypertension | [address] [place] | [place], | | | | | Sick sinus | [address] | [place] | | | | | syndrome | [place], [place] | [address] | | | | | (HCC) | [address] | Phone: | | | | | Ventricular | Phone: | [phone] | | | | | premature | [phone] | Fax: | | | | | depolarizati | Fax: | [phone] | | | | | on | [phone] | | | | | | Tachycardia, | | | | | | | unspecified | | | | | | | | | | | | | | Atherosclero | | | | | | | tic heart | | | | | | | disease of | | | | | | | [place] | | | | | | [...] + | 05/01/ | Procedure | [facility] | Margarito Jaeger | Pacemaker | | 2020 | visit | CARDIOLOGY [address] | MD Fabrice [address] | reprogramming/check | | | | [place], | [place] [address] [place] | DO NOT DELETE | | | | [place] [address] | [place] [address] | (Primary Dx); | | | | [phone] | [phone] | Pacemaker; | | | | | [...] monitoring. Device interrogation due in office at [facility]. documented in t his encounter Plan [...] | | | | | | [place] [address] | | | | | | [phone] | | | | | | | [...] | monitoring.Device interrogation due in office at [facility]. | | |Data collected by Shabana [...] received | | |error codes. Referred to [employer] Stay Connected line. Monthly | | |remote monitoring. | | |Device interrogation due in office at [facility]. | | | | | + [...] and has received error codes. Referred to [facility] Stay | | Connected line. Monthly remote monitoring.Device interrogation due in office at [facility]. | |Underlying rhythm: Sinus rhythm 72-75 [...] has received error codes. Referred to [employer] Stay Connected line. Monthly remote monitoring. | |Device interrogation due in office at [facility]. | + + + +---------+ + [...]
--- OUTSIDE RECORDS SUMMARY | ~2020-06-15 | XMS | Encounter Summary ---
Demographics + + + | Address | [address] | | | [place] [address] | + + + | Home Phone [...] Providers + +------+ + | Care Chief Airport Guide Name | Role | Phone | [...] | | | | [place] | [phone] | | | | | [address] | | | | | | [phone] | | | +--------+ + + + [...] | | | | | | | #[id number], exp 07/2016 | | | | | [...] W | | | | | | [place], | | | | | | [place] [address] | | | | | | [phone] | | | | | | | [...]
--- OUTSIDE RECORDS SUMMARY | ~2020-06-15 | XMS | Encounter Summary ---
Demographics + + + | Address | [address] | | | [place] [address] | + + + | Home Phone [...] Team Providers + +------+ + | Care Trommel Tender Name | Role | Phone | [...] Results | | 2013 | | [facility] [place] | DO [address] | | | | | [address] | [place], [place] | | | | | [place], [place] | [address] | | | | | [address] | | | | | | [phone] | | | +--------+ + + + [...] | | | | | | [place] [address] | | | | | | [phone] | | | | | | | | +--------+ + + + + documented as of this encounter Visit Diagnoses Not on filedocumented in this encounter"
--- OUTSIDE RECORDS SUMMARY | ~2020-06-15 | XMS | Encounter Summary ---
Demographics + + + | Address | [address] | | | [place] [address] | + + + | Home Phone [...] + +------+ + | Care Special Agent In Charge Name | Role | Phone [...] | fasting labs) | | | | [place], | [place], | | | | | [place] [address] | [place] [address] | | | | | [phone] | [phone] | | | | | | | [...] | | | | | | [place] [address] | | | | | | [phone] | | | | | | | | +--------+ + + + + documented as of this encounter Visit Diagnoses Not on filedocumented in this encounter"
--- OUTSIDE RECORDS SUMMARY | ~2020-06-15 | XMS | Encounter Summary ---
Demographics + + + | Address | [address] | | | [place] [address] | + + + | Home Phone [...] + + | 01/07/ | Hospital | [facility] | Conversion | | | 2017 | Encounter | [facility] | Transaction, | | | | | ULTRASOUND 9[address] | Provider Unknown | | | | | [address] | [phone] | | | | | [facility] [place] | | | | | | [address] | Kirk French | | | | | [phone] | MD Eva Guidry | | | | | | [address] [place], | | | | | | [place] [address] | | | | | | [phone] | | | | | | | [...] | | | | | | [place] [address] | | | | | | [phone] | | | | | | | | +--------+ + + + + documented as of this encounter Visit Diagnoses Not on filedocumented in this encounter"
--- OUTSIDE RECORDS SUMMARY | ~2020-06-15 | XMS | Encounter Summary ---
Demographics + + + | Address | [address] | | | [place] [address] | + + + | Home Phone [...] Providers + +------+ + | Care Brush Worker Name | Role | Phone | [...] | | | | CENTER [address] | [place], [place] | insufficiency | | | | [place], [place] | [address] | | | | | [address] | | | | | | [phone] | | | +--------+ + + + [...] sent through Care Everywhere.PERIPHERAL KENYETTA Cr, MAMADOU (GREEN[place])documented in this encounter Medications at Time [...] + + + +---------+ + + | [place]-3 Fatty | CAPS, one capsule by | [...] | | | | | | | #[id number], exp 07/2016 | | | | | [...] Montoya MD - 08/23/2015 7:22 PM PDT [facility] Moe Sanchez Emergency Department Encounter Note [address] [place] [address] PCP:Kirk French MD x2500 CHIEF COMPLAINT: Leg swelling HPI Moe Sanchez is a 55 y.o. male who presents to the Emergency Department who has been having bilateral leg swelling this been ongoing since a recent trip to [facility]. He's not had chest pain or increasing shortness of breath. He had some increased pain in the leg s and noticed redness of both legs. He was seen at 2 different hospitals in [facility] to have the leg evaluated. [...] W | | | | | | [place], | | | | | | [place] [address] | | | | | | [phone] | | | | | | | | +--------+ + + + + documented as of this encounter Visit Diagnoses + + | Diagnosis | + + | Peripheral edema - Primary Edema | + + | Venous insufficiency Unspecified venous (peripheral) insufficiency | + + documented in this encounter
--- OUTSIDE RECORDS SUMMARY | ~2020-06-15 | XMS | Encounter Summary ---
Demographics + + + | Address | [address] | | | [place] [address] | + + + | Home Phone [...] Providers + +------+ + | Care Shipping Technician Name | Role | Phone | [...] | | | | CENTER [address] | [address] | | | | | [place] | [place] | | | | | [address] | [address] | | | | | [phone] | | | +--------+ + + + [...] | | | | | [place] coronary | | | | | | | artery of [place] | | | | | | | [...] Moe Sanchez Emergency Department Encounter Note [address] [place] [address] PCP:Kirk French MD x2500 eMERGENCY dEPARTMENT eNCOUnter [...] [employer] Peptic ulcer disease Premature ventricular contraction [facility] health care 06/26/2013 LAST PSA:12/16/2010 RESULT:0.14 LAST [...] CV LHC; Surgeon: Daljit Singletary MD; Location: [facility] CV LAB CARDIAC CATHERIZATION N/A 01/25/2019 Procedure: CV Cor Angio; Surgeon: Daljit Singletary MD; Location: [facility] CV LAB COLONOSCOPY N/A 12/24/2017 Procedure: COLONOSCOPY; Surgeon: Emmanuel Daniel MD; Location: [facility] MEDICAL PROCEDURE UNIT COLONOSCOPY N/A 01/05/2019 Procedure: COLONOSCOPY; Surgeon: Emmanuel Daniel MD; Location: [facility] MEDICAL PROCEDURE UNIT EGD 12/24/2017 [...] Procedure: EGD; Surgeon: Emmanuel Daniel MD; Location: [facility] MEDICAL PROCEDURE UNIT UPPER GASTROINTESTINAL ENDOSCOPY N/A 01/05/2019 Procedure: EGD; Surgeon: Emmanuel Daniel MD; Location: [facility] MEDICAL PROCEDURE UNIT URETEROSCOPY Left 04/13/2019 Procedure: Cystoscopy, Left ureteroscopy with laser lithotripsy, Left ureteral stent place ment; Surgeon: Matthew Uriarte MD; Location: [facility] MAIN OR VASECTOMY CURRENT MEDICATIONS ANESTHESIOLOGIST PHYSICIAN Home Medications Medication Sig amLODIPine (NORVASC) 5 [...] NO RELIEF AFTER 3RD DOSE, CALL 911 [place]-3 Fatty Acids (SALMON OIL-1000 PO) CAPS, one [...] noted, no facial assymetry noted. 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 Occasi onal wrong-word or [...] | | | | | | [place] [address] | | | | | | [phone] | | | | | | | [...] W?MRN: | | | | | | [id number] | | | [id number] | | | riteri | | | [...] | | | St. | | | [place] | | | y | | | [...] | | | St. | | | [place] | | | y | | | [...] | | | St. | | | [place] | | | y H. | | [...] | | | St. | | | [place] | | | y H. | | [...] | | | M.D. | | | Clinical Trials Data Coordinator | | | al | | | [...] | | | ent/60 | | | [id number] | | | -[id number]- | | | [...] + | [facility] | [address] | [place] | [phone] | | [facility] | | [address] | | | - LABORATORY | | [...] [address] | [place] | [phone] | | [facility] | | [address] | | | - LABORATORY | | [...] use as of January 18 | | [facility] | | | | 2018. Check reference [...] [address] | [place] | [phone] | | [facility] | | [address] | | | - LABORATORY | | [...] | 0.92 | 0.70 - 1.30 | [facility] | | | | | mg/dL | [facility] | | | | | | MEDICAL | | | | | | CENTER - | | | | | | LABORATORY | | + + + + + + | eGFR if not | >60Comment: GLOMERULAR | >=60 | [facility] | | | | FILTRATION | mL/min/1.73m2 | [facility] | | | MARSHALLESE | RATE,ESTIMATED | | MEDICAL | | | | mL/min/1.41x6Jgme than | | CENTER - | | [...] | 9.6 | 8.7 - 10.4 | [facility] | | | | | mg/dL | [facility] | | | | | | [...] + | [facility] | [address] | [place] | [phone] | | [facility] | | [address] | | | - LABORATORY | | [...] + | [facility] | [address] | [place], [place] | [phone] | | [facility] | | [address] | | | - LABORATORY | | [...] [address] | [place] | [phone] | | [facility] | | [address] | | | - LABORATORY | | [...] | | | | ANGELA MARADIAGA MD ([id number]) | | | | | | on [...] in the chest.Dictated and Signed by: Emmanuel Hnuter | | MD Edwige Electronically signed: 06/02/2019 [...] | | | | | Patient Address: [address] [place] [address] | | | | | | | [place] [address], | | | | | | + + + +------+---+---+ +---+---+ | | | +---+---+ documented in this encounter
--- OUTSIDE RECORDS SUMMARY | ~2020-06-15 | XMS | Encounter Summary ---
Demographics + + + | Address | [address] | | | [place] [address] | + + + | Home Phone [...] Providers + +------+ + | Care Comb Tender Name | Role | Phone | [...] | | | [address] [place] | [place] [address] | | | | | [place] [address] | | | | | | [phone] | | | +--------+ + + + [...] | | | | | | [place] [address] | | | | | | [phone] | | | | | | | [...] for comparison only - no result from [facility]. | | + + + + +---------+ + + | Performing | Address | City/State/Zipcode | Phone Number | | Organization | | | | + +---------+ + + | [facility] | | | | + +---------+ + + documented in this encounter Visit Diagnoses Not on filedocumented in this encounter"
--- OUTSIDE RECORDS SUMMARY | ~2020-06-15 | XMS | Encounter Summary ---
Demographics + + + | Address | [address] | | | [place] [address] | + + + | Home Phone [...] Providers + +------+ + | Care Cash On Delivery Clerk Name | Role | Phone | [...] [address] | | | | | [address] | [place] [address] | | | | | [phone] | [phone] | | | | | | | [...] | | | | | | [place] [address] | | | | | | [phone] | | | | | | | [...] | Basophils | performed at [facility];[address] | 10*3/uL | LAB | | | | [address] | | | | | | [address];[place] [address] | | | | + + + [...] | | | performed at [facility];[address] | u[iU]/mL | LAB | | | | [address] | | | | | | [address];[place] [address] | | | | + + + [...] | | | | at [facility];[address] | | | | | | [place] | | | | | | [address] | | | | + + + [...]
--- OUTSIDE RECORDS SUMMARY | ~2020-06-15 | XMS | Encounter Summary ---
Demographics + + + | Address | [address] | | | [place] [address] | + + + | Home Phone [...] + + + + | 04/22/ | [facility] | 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 | | Diagnostic Imaging Department [address] [place] [address] | | CT MYELOGRAM LUMBAR SPINE, 04/22/2012 [...] 10:54 | |Transcribed Date/Time: 04/23/2012 11:06 | |Dump Grounds Checker: | |<Electronically Signed by Jama Solis MD> [...] [facility] Diagnostic Imaging Department | [facility] | | [address] [facility] | [facility] | | THORACIC CT MYELOGRAM [...] Transcribed Date/Time: 04/22/2012 17:32 | | | Dump Grounds Checker: <Electronically Signed by Jama Mason | | | MD Will> 04/23/12 1039 | | + + + + + | Procedure Note | + + | Kalpesh Brown Conversion - 12/29/2013 5:[address] [facility] | | Diagnostic Imaging Department [address] [place] [address] | | THORACIC CT MYELOGRAM CLINICAL HISTORY: [...] 16:56 | |Transcribed Date/Time: 04/22/2012 17:32 | |Dump Grounds Checker: | |<Electronically Signed by Jama Solis MD> [...] [facility] Diagnostic Imaging Department | [facility] | | [address] [facility] | [facility] | | CT MYELOGRAM CERVICAL [...] Transcribed Date/Time: | | | 04/22/2012 17:25 Dump Grounds Checker: <Electronically Signed | | | by Jama Solis MD> 04/23/12 1039 | | + + + + + | Procedure Note | + + | Kevin, Kalpesh Conversion - 12/29/2013 5:[address] [facility] | | Diagnostic Imaging Department | | [address] [facility] | | | | | | [...] | Transcribed Date/Time: 04/22/2012 17:25 | | Dump Grounds Checker: | | <Electronically Signed by Jama Solis [...] [facility] Diagnostic Imaging Department | [facility] | | [address] [facility] | [facility] | | LUMBAR MYELOGRAM INJECTION [...] Transcribed Date/Time: 04/22/2012 16:36 | | | Dump Grounds Checker: <Electronically Signed by Jama Mason | | | MD Will> 04/23/12 1039 | | + + + + + | Procedure Note | + + | Kevin, Kalpesh Conversion - 12/29/2013 5:[address] [facility] | | Diagnostic Imaging Department [address] [...] 15:51 | |Transcribed Date/Time: 04/22/2012 16:36 | |Dump Grounds Checker: | |<Electronically Signed by Jama Solis MD> [...]
--- OUTSIDE RECORDS SUMMARY | ~2020-06-15 | XMS | Encounter Summary ---
Demographics + + + | Address | [address] | | | [place] [address] | + + + | Home Phone [...] Providers + +------+ + | Care Outside Maintenance Worker Name | Role | Phone [...] | | | | CENTER [address] [place] | | | | | [place], [place] | [place] [address] | | | | | [address] | [phone] | | | | | [phone] | | | +--------+ + + + [...] sent through Care Everywhere.Diarrhea, Unkno wn Cause (Vietnamese)documented in this encounter Medications at Time of [...] + + + +---------+ + + | [place]-3 Fatty | CAPS, one capsule by | [...] | | | | | | | [place] coronary | | | | | | | artery of [place] | | | | | | | [...] might be differ ent from the original. [facility] Moe Sanchez Emergency Department Encounter Note [address] [place] [address] PCP:Kirk French MD [phone] History ED Triage [...] wasn't treated. 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; Introhivetronic Peptic ulcer disease Premature ventricular contraction Preventative [...] CV LHC; Surgeon: Daljit Singletary MD; Location: [facility] CV LAB CARDIAC CATHERIZATION N/A 01/25/2019 Procedure: CV Cor Angio; Surgeon: Daljit Singletary MD; Location: [facility] CV LAB COLONOSCOPY N/A 12/24/2017 Procedure: COLONOSCOPY; Surgeon: Emmanuel Daniel MD; Location: [facility] MEDICAL PROCEDURE UNIT COLONOSCOPY N/A 01/05/2019 Procedure: COLONOSCOPY; Surgeon: Emmanuel Daniel MD; Location: [facility] MEDICAL PROCEDURE UNIT EGD 12/24/2017 [...] Procedure: EGD; Surgeon: Emmanuel Daniel MD; Location: [facility] MEDICAL PROCEDURE UNIT UPPER GASTROINTESTINAL ENDOSCOPY N/A 01/05/2019 Procedure: EGD; Surgeon: Emmanuel Daniel MD; Location: [facility] MEDICAL PROCEDURE UNIT URETEROSCOPY Left 04/13/2019 Procedure: Cystoscopy, Left ureteroscopy with laser lithotripsy, Left ureteral stent place ment; Surgeon: Matthew Uriarte MD; Location: [facility] MAIN OR VASECTOMY Medications: SHEET LAYER Home Medications Medication Sig amLODIPine (NORVASC) 5 [...] NO RELIEF AFTER 3RD DOSE, CALL 911 [place]-3 Fatty Acids (SALMON OIL-1000 PO) CAPS, one capsule by mouth daily twice daily ondansetron (ZOFRAN ODT) 4 mg disintegrating tablet Take 4 mg by mouth every 8 hours as needed for Nausea. ONE TOUCH DELICA LANCETS [facility] Check glucose as needed for hypoglycemia oxyCODONE-acetaminophen [...] | | | | | | [place] [address] | | | | | | [phone] | | | | | | | [...] W?MRN: | | | | | | [id number] | | | [id number] | | | riteri | | | [...] | | | St. | | | [place] | | | y | | | [...] | | | St. | | | [place] | | | y | | | [...] | | | St. | | | [place] | | | y H. | | [...] | | | St. | | | [place] | | | y H. | | [...] | | M.D. | | | Insurance Checker | | | al | | | [...] | | | ent/60 | | | [id number] | | | [phone] | | | [...] [address] | [place] | [phone] | | [facility] | | [address] | | | - LABORATORY | | [...] [address] | [place] | [phone] | | [facility] | | [address] | | | - LABORATORY | | [...] + | [facility] | [address] | [place] | [phone] | | [facility] | | [address] | | | - LABORATORY | | [...] | | Sensitive | | | [facility] [...] [address] | [place] | [phone] | | [facility] | | [address] | | | - LABORATORY | | [...] [address] | [place] | [phone] | | [facility] | | [address] | | | - LABORATORY | | [...] | 0.96 | 0.70 - 1.30 | [facility] | | | | | mg/dL | [facility] | | | | | | MEDICAL | | | | | | CENTER - | | | | | | LABORATORY | | + + + + + + | eGFR if not | >60Comment: GLOMERULAR | >=60 | [facility] | | | | FILTRATION | mL/min/1.73m2 | [facility] | | | PERUVIAN | RATE,ESTIMATED | | MEDICAL | | | | mL/min/1.27t4Ahhz than | | CENTER - | | [...] + | [address] [facility] | [address] | [place] | [phone] | | [facility] | | [address] | | | - LABORATORY | | [...] [address] | [place] | [phone] | | [facility] | | [address] | | | - LABORATORY | | [...] - 1.030 | [facility] | | | [place], | | | [facility] | [...] | [address] | [place] | [phone] | | [facility] | | [address] | | | - LABORATORY | | [...]
--- OUTSIDE RECORDS SUMMARY | ~2020-06-15 | XMS | Encounter Summary ---
Demographics + + + | Address | [address] | | | [place] [address] | + + + | Home Phone [...] | + + +---------+ + | Nadnie Patelgalenvarsha | ECON | Unknown | | + + +---------+ + Care Team Providers + +------+ + | Care Ceo And President Name | Role | Phone [...] [address] | | | | | | [place], [place] | (Fax) | | | | | [address] | | | | | | [phone] | | | +--------+ + + + [...] | | | | | | [place] [address] | | | | | | [phone] | | | | | | | | +--------+ + + + + documented as of this encounter Visit Diagnoses Not on filedocumented in this encounter"
--- OUTSIDE RECORDS SUMMARY | ~2020-06-15 | XMS | Encounter Summary ---
Demographics + + + | Address | [address] | | | [place] [address] | + + + | Home Phone [...] Team Providers + +------+ + | Care Ip Architect Name | Role | Phone | [...] | | | Diarrhea/ | [address] | [place], [place] | | | | | Rectal | [place] | [address] | | | | | Bleeding | [address] | Phone: | | | | | from [facility] | Phone: | [phone] | | | | | referral. | [phone] | Fax: | | | | | | Fax: | [phone] | | | | | | [phone] | | + + + + + [...] + + | 01/21/ | Telephone | [facility] | Kirk French | Other (wanted to let | | 2019 | | [facility] | MD Brea [address] | us know the St. | | | | [facility] [address] | Apolonia'gena cancelled his | | | | [address] | [place] [address] | appointment for a | | | | [place], [place] | [phone] | colonoscopy) | | | | [address] | | | | | | [phone] | | | +--------+ + + + [...] Patient state he received a call from [facility] last to wilmer weiner his appointment for colonoscopy due rodríguez virus outbreak. Patient is wanting to see i f its possible for him to get a colonoscopy at our [facility] gastro. Call back at [phone] Sia Vasquez Ext 7979 elephone Encounter - Hailey Girard, Hot Air Furnace Installer Repairer - 01/22/2020 10:59 AM PSTFYI. Electronicall y signed by Hailey Padron, Hot Air Furnace Installer Repairer at 01/22/2020 10:59 AM PSTTelephone Encounter - Vicki Adler - 01/22/2020 8:51 AM PSTFred, is calling regarding Other (pawan patel to let us know the [facility] cancelled his appointment for a colonoscopy) and would like a call back. Additional Call Details: He wanted to let us know and also wanted to let us know that [facility] is going to get a hold of us for him to swallow the camera her at [facility]. If this is a symptom based call, was patient offered triage? Not Applicable If this is a symptom based call and you were unable to immediately transfer the call to a lorraine bellamy blind stitch machine operator was caller made aware that [...] W | | | | | | [place], | | | | | | [place] [address] | | | | | | [phone] | | | | | | | [...]
--- OUTSIDE RECORDS SUMMARY | ~2020-06-15 | XMS | Clinical Summary ---
Demographics + + + | Address | [address] [place] [address] | | | [place] [address] | + + + | Home Phone [...] [place] | | | | | [address] | | + + + + + Care Team Providers + +------+ + | Care Svp Marketing Name | Role | Phone | + +------+ + | Darion Holden DO | PCP | | + +------+ + Source Comments IVETTE is fully live on both EpicCare Ambulatory and EpicCare InPatient.[facility] Allergies + + + + + + [...] | | | | | | | [address] | | + +--------+ +--------+ + +--------+ | [employer] | [employer] | [phone] | 11/22/19 | [phone] | [address] | Indemn | | RETIRED PEOPLE | | | 10-Pre | 9 | [phone] | ity | | | | | sent | | [place], [place] | | | | | | | | [address] | | + +--------+ +--------+ + +--------+ + +--------+ +--------+ + + | Guarantor Name | Accoun | Relation to | Date | Phone | Billing Address | | | t Type | Patient | of | | | | | | | | | | + +--------+ +--------+ + + | Moe Sanchez W | Person | Self | [birth year] | [address] | | | cristo/Per | | 1959 | [phone] | [place] | | | roxanne | | | 8 (Home) | [address] | + +--------+ +--------+ + + Advance Directives + + + + + | Type | Date Recorded | Patient | Explanation | | | | Radio Presenter | | + + + + + | Advance | | | | | Directives and | | | | | Living Will | | | | + + + + + | Power of | | | | | Loading Machine Operator Helper | | | | + + + + +
--- OUTSIDE RECORDS SUMMARY | ~2020-06-15 | XMS | Encounter Summary ---
Demographics + + + | Address | [address] | | | [place] [address] | + + + | Home Phone [...] | + + +---------+ + | Nadinevarsha Sweeneyglaenvarsha | ECON | Unknown | | + + +---------+ + Care Team Providers + +------+ + | Care Probation Worker Name | Role | Phone | [...] + | 01/04/ | Telephone | [facility] | Silvia, | Other ( RECORDS | | 2012 | | CARDIOLOGY [address] | [address] [address] | DISCLOSURE) | | | | [place], | [place], | | | | | [place] [address] | [place] [address] | | | | | [phone] | [phone] | | | | | | | [...] faxed today att. To Dr Gambino at [facility] fax [phone] : Holter Monitor 01/20/10 EKG 05/14/11 Labs 05/27/12, 12/12/12 Operative report 06/14/09 Stress test 06/15/08 CT of chest 04/23/08 elep le Encounter - Tessie Rock - 01/04/2013 3:43 PM PSTThe following records have been faxed to Jay Gambino MD at [facility], phone [phone] and fax : Demographics Echo 12/30/12 OC [...] | | | | | | [place] [address] | | | | | | [phone] | | | | | | | | +--------+ + + + + documented as of this encounter Visit Diagnoses Not on filedocumented in this encounter"
--- OUTSIDE RECORDS SUMMARY | ~2020-06-15 | XMS | Encounter Summary ---
Demographics + + + | Address | [address] | | | [place] [address] | + + + | Home Phone [...] Team Providers + +------+ + | Care Telemarketing Agent Name | Role | Phone | [...] | CARDIOLOGY [address] | [address] | Interrogation | | | | [place], | [place], | (Primary Dx); | | | | [place] [address] | [place] [address] | Pacemaker; | | | | [phone] | [phone] | Sinoatrial node | | | | [...] Paceart documentation and remote PDF scanned into WiN MS for remote interrogation re sults. Data collected [...] | | | | | | [place] [address] | | | | | | [phone] | | | | | | | [...] remote PDF scanned into | | | [facility] for remote interrogation results. [...]
--- OUTSIDE RECORDS SUMMARY | ~2020-06-15 | XMS | Encounter Summary ---
Demographics + + + | Address | [address] | | | [place] [address] | + + + | Home Phone [...] Providers + +------+ + | Care Drafter Apprentice Name | Role | Phone | [...] + + | 04/12/ | Telephone | [facility] | Daljit Singletary, | Other (issues with | | 2017 | | CARDIOLOGY [address] | MD [address] [place] | low blood pressure | | | | [place], | [place], | and dizziness) | | | | [place] [address] | [place] [address] | | | | | [phone] | [phone] | | | | | | | [...] | | | | | | [place] [address] | | | | | | [phone] | | | | | | | | +--------+ + + + + documented as of this encounter Visit Diagnoses Not on filedocumented in this encounter"
--- OUTSIDE RECORDS SUMMARY | ~2020-06-15 | XMS | Encounter Summary ---
Demographics + + + | Address | [address] | | | [place] [address] | + + + | Home Phone [...] Providers + +------+ + | Care Compressor Station Engineer Name | Role | Phone | + +------+ + | Kirk French MD | PCP | | + +------+ + Encounter Details +--------+ + + + + | Date | Type | Department | Care Team | Description | +--------+ + + + + | 03/15/ | Hospital | [facility] | Conversion | | | 2016 | Encounter | [facility] XRAY | Transaction, | | | | | [address] | Provider Unknown | | | | | [address] [place] | [phone] | | | | | [address] | | | | | | [phone] | Kirk French | | | | | | MD Eva Guidry | | | | | | [address] [place], | | | | | | [place] [address] | | | | | | [phone] | | | | | | | [...] + + + +---------+ + + | [place]-3 Fatty | CAPS, one capsule by | [...] [place], | | | | | | [place] [address] | | | | | | [phone] | | | | | | | | +--------+ + + + + documented as of this encounter Visit Diagnoses Not on filedocumented in this encounter"
--- OUTSIDE RECORDS SUMMARY | ~2020-06-15 | XMS | Encounter Summary ---
Demographics + + + | Address | [address] | | | [place] [address] | + + + | Home Phone [...] + + | 09/26/ | Office | [facility] | Kirk French | Weight loss (Primary | | 2018 | Visit | GERALDINE Guidry MD [address] | Dx); Bipolar | | | | [facility] [address] | affective disorder, | | | | [address] | [place] [address] | remission status | | | | [place], [place] | [phone] | unspecified (HCC); | | | | [address] | | Mixed anxiety | | | | [phone] | | depressive disorder; | | | [...] wasn't treated. 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 ONE TOUCH DELICA LANCETS [facility] [...] PLT 169 06/02/2019 No results found for: [id number] No results found for: FOLATE No results [...] Co multiple ER visits Going again to [facility] tomorrow Already followed by [facility] in [...] | | | | | | [place] [address] | | | | | | [phone] | | | | | | | [...]
--- OUTSIDE RECORDS SUMMARY | ~2020-06-15 | XMS | Encounter Summary ---
Demographics + + + | Address | [address] | | | [place] [address] | + + + | Home Phone [...] Providers + +------+ + | Care Package Worker Name | Role | Phone | [...] + | 03/27/ | Telephone | [facility] | Anshumarianatesha, Daljit, | Other (Missed | | 2019 | | CARDIOLOGY [address] | MD [address] [place] | [facility]) | | | | [place], | [place], | | | | | [place] [address] | [place] [address] | | | | | [phone] | [phone] | | | | | | | [...] | | | | | | [place] [address] | | | | | | [phone] | | | | | | | | +--------+ + + + + documented as of this encounter Visit Diagnoses Not on filedocumented in this encounter"
--- OUTSIDE RECORDS SUMMARY | ~2020-06-15 | XMS | Encounter Summary ---
Demographics + + + | Address | [address] | | | [place] [address] | + + + | Home Phone [...] [address] | | | | | [address] | [place] [address] | | | | | [phone] | [phone] | | | | | | | [...] | | | | | | [place] [address] | | | | | | [phone] | | | | | | | [...]
--- OUTSIDE RECORDS SUMMARY | ~2020-06-15 | XMS | Encounter Summary ---
Demographics + + + | Address | [address] | | | [place] [address] | + + + | Home Phone [...] Team Providers + +------+ + | Care Weapons Electrical Engineering Officer Name | Role | Phone | + +------+ + PCP | Unavailable | + +------+ + Encounter Details +--------+ + + + + | Date | Type | Department | Care Team | Description | +--------+ + + + + | 02/07/ | [facility] | [facility] | Unknown, | | | 1995 | Encounter | MED CTR XRAY [address] | MD Stefany . | | | | | [place] [place] | | | | | | [place] [address] | (Fax) | | | | | [phone] | | | +--------+ + + + [...] | | | | | | [place] [address] | | | | | | [phone] | | | | | | | | +--------+ + + + + documented as of this encounter Visit Diagnoses Not on filedocumented in this encounter"
--- OUTSIDE RECORDS SUMMARY | ~2020-06-15 | XMS | Encounter Summary ---
Demographics + + + | Address | [address] | | | [place] [address] | + + + | Home Phone [...] Providers + +------+ + | Care Staff Field Engineer Name | Role | Phone [...] + + | 12/23/ | Telephone | [facility] | Daljit Singletary, | Other (question | | 2015 | | CARDIOLOGY [address] | MD [address] [place] | about diet | | | | [place], | [place], | medication) | | | | [place] [address] | [place] [address] | | | | | [phone] | [phone] | | | | | | | [...] | | | | | | [place] [address] | | | | | | [phone] | | | | | | | | +--------+ + + + + documented as of this encounter Visit Diagnoses Not on filedocumented in this encounter"
--- OUTSIDE RECORDS SUMMARY | ~2020-06-15 | XMS | Encounter Summary ---
Demographics + + + | Address | [address] [place] [address] [address] | | | [place] [address] | + + + | Home Phone [...] [place] | | | | | [address] | | + + + + + Care Team Providers + +------+ + | Care Goal Umpire Name | Role | Phone | [...] | | | | | Unintentiona | [place], [place] | | | | | | l weight | [address] | | | | | | loss | Phone: | | | | | | Procedures | [phone] | | | | | | CONSULT TO | Fax: | | | | | | NON - IVETTE | [phone] | | | | | | PROVIDER [...] | | 2019 | | Center at [facility] [address] | MD [address] | normal, recommend | | | | [address] | [place], [place] | hyoscyamine) | | | | for Health and | [address] | | | | | [facility] 2 | [phone] | | | | | [facility] [place] | | | | | | [address] | | | | | | [phone] | | | +--------+ + + + [...]
--- OUTSIDE RECORDS SUMMARY | ~2020-06-15 | XMS | Encounter Summary ---
Demographics + + + | Address | [address] | | | [place] [address] | + + + | Home Phone [...] Providers + +------+ + | Care Wood Bucker Name | Role | Phone | + [...] | Ascending | [place], | [address] [place] | | | | | aortic | [address] | [place], | | | | | aneurysm | [address] | [place] | | | | | ([facility]) | [place] | [address] | | | | | Procedures | [place], | Phone: | | | | | ECHO | [place] | [phone] | | | | | Complete | [address] | Fax: | | | | | | Phone: | [phone] | | | | | | [phone] | | | | | | | Fax: | | | | | | | [phone] | | +--------+--------+ + + + + [...] | Ascending | Silvia, | [address] [place] | | | | | aortic | [address] [place] | [place], | | | | | aneurysm | [address] | [place] | | | | | ([facility]) | [place] | [address] | | | | | Procedures | [place], | Phone: | | | | | ECHO | [place] | [phone] | | | | | Complete | [address] | Fax: | | | | | | Phone: | [phone] | | | | | | [phone] | | | | | | | Fax: | | | | | | | [phone] | | +--------+--------+ + + + + Encounter Details +--------+ + + + + | Date | Type | Department | Care Team | Description | +--------+ + + + + | 05/01/ | Hospital | [facility] | Silvia, | Ascending thoracic | | 2020 | Encounter | MED CTR ECHO [address] | Janeen MANAGER DISH [address] | aortic aneurysm | | | | [place] | [place], | ([facility]); Ascending | | | | [place] [address] | [place] [address] | aortic aneurysm | | | | [phone] | [phone] | ([facility]) | | | | [...] | | | | | | [place] coronary | | | | | | | artery of [place] | | | | | | | [...] + + + +---------+ + + | [place]-3 Fatty | CAPS, one capsule by | [...] | | | | | | [place] [address] | | | | | | [phone] | | | | | | | [...] | | | | | | n [place] | | | | | + +--------+ [...]
--- OUTSIDE RECORDS SUMMARY | ~2020-06-15 | XMS | Encounter Summary ---
Demographics + + + | Address | [address] | | | [place] [address] | + + + | Home Phone [...] Providers + +------+ + | Care Medical Asst Name | Role | Phone | [...] CARDIOLOGY [address] | MD [address] [place] | Interrogation | | | | [place], | [place], | (Primary Dx); | | | | [place] [address] | [place] [address] | Pacemaker; | | | | [phone] | [phone] | Sinoatrial node | | | | [...] Paceart documentation and remote PDF scanned into [employer] for remote interrogation re sults. Data collected [...] | | | | | | [place] [address] | | | | | | [phone] | | | | | | | [...] remote PDF scanned into | | | [facility] for remote interrogation results. Data [...] | Performing | Address | City/State/[facility] | Phone Number | | Organization | [...]
--- OUTSIDE RECORDS SUMMARY | ~2020-06-15 | XMS | Encounter Summary ---
Demographics + + + | Address | [address] | | | [place] [address] | + + + | Home Phone [...] Team Providers + +------+ + | Care Premium Card Cancellation Clerk Name | Role | Phone | [...] [address] | | | | | [address] | [place] [address] | | | | | [phone] | [phone] | | | | | | | [...] | | | | | | [place] [address] | | | | | | [phone] | | | | | | | [...] | | Basophils | performed at [facility];[address] | 10*3/uL | LAB | | | | [address] | | | | | | [address];[place] [address] | | | | + + + [...] | | | | performed at [facility];[address] | u[iU]/mL | LAB | | | | [address] | | | | | | [address];[place] [address] | | | | + + + [...] | | | | | at [facility];[address] | | | | | | [place] | | | | | | [address] | | | | + + + [...]
--- OUTSIDE RECORDS SUMMARY | ~2020-06-15 | XMS | Encounter Summary ---
Demographics + + + | Address | [address] | | | [place] [address] | + + + | Home Phone [...] Providers + +------+ + | Care Patch Setter Name | Role | Phone | [...] + | 06/26/ | Office | [facility] | Geri Angel, | Coronary artery | | 2015 | Visit | CARDIOLOGY [address] | TOWEL FOLDER [address] | disease involving | | | | [place], | [place], [place] | [place] coronary | | | | [place] [address] | [address] | artery without | | | | [phone] | | angina pectoris | | | [...] not occur with exertion. He went to [facility] at the end of for [...] it. He is planning to travel to [place] in the ve ry near future for up to a month due to his puqepv-eb-ren having a significant stroke there MEDICAL, SURGICAL, [...] Preventative health care Coronary artery disease involving [place] coronary artery without angina pectoris Cannabis abuse, [...] 3rd dose, call 911 25 tablet 11 [place]-3 Fatty Acids (SALMON OIL-1000 PO) CAPS, one [...] Daily. 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 Leads: Right atrium and right ventricle [...] to go back in 3 days to [place] for an attempt of ablation under general [...] dizziness. He is in class I-II of [place] [employer] functional class. T here are [...] this chart may have been created with [employer] voice recognition software. 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 Leads: Right atrium and right | | [...] + + | Coronary artery disease involving [place] coronary artery without angina pectoris - | | Primary | + + | SINUS BRADYCARDIA Sinoatrial node dysfunction | + + | Essential hypertension Unspecified essential hypertension | + + | Hyperlipidemia Other and unspecified hyperlipidemia | + + | Symptomatic PVCs Other premature beats | + + documented in this encounter
--- OUTSIDE RECORDS SUMMARY | ~2020-06-15 | XMS | Encounter Summary ---
Demographics + + + | Address | [address] | | | [place] [address] | + + + | Home Phone [...] Providers + +------+ + | Care Daycare Manager Name | Role | Phone | + +------+ + | Kirk French MD | PCP | | + +------+ + Encounter Details +--------+ + + + + | Date | Type | Department | Care Team | Description | +--------+ + + + + | 11/17/ | Telephone | [facility] | Kirk French | | | 2019 | | [facility] FABRIZIO Guidry MD [address] | | | | | PRIMARY CARE [address] | [address] | | | | | [address] | [place] [address] | | | | | [place], [place] | [phone] | | | | | [address] | | | | | | [phone] | | | +--------+ + + + [...] 12/06/2019 12:47 PM PSTDisregarded per Johanna at [facility] GI elephone Encounter - Geri Bear Mill Oiler - 11/24/2019 12:20 PM PSTsee elephone Encounter - Nadeem French MD - 11/24/2019 12:19 PM PSTDefer to his financial services representative, pretty common procedeu re elephone Encou nter - Geri Bear [place] Oiler - 11/24/2019 11:44 AM PSTPlease adviseElectronicall y signed by Geri Bear Mill Oiler at 11/24/2019 11:44 AM PSTTelephone Encounter - Shelley Hess - 11/17/2019 2:37 PM PSTProvider: Dr. Manolo Valadez called needing a recommendation for where patient can get a capsules endoscopy do ne. Caller: Campos Relationship to patient:[facility] Please call back at [phone] Can a Detailed VM be left on [...] | | | | | | [place] [address] | | | | | | [phone] | | | | | | | | +--------+ + + + + documented as of this encounter Visit Diagnoses Not on filedocumented in this encounter"
--- OUTSIDE RECORDS SUMMARY | ~2020-06-15 | XMS | Encounter Summary ---
Demographics + + + | Address | [address] | | | [place] [address] | + + + | Home Phone [...] Shorty | | | | | | [place] | | | | | | [address] | | | | | | [phone] | | | +--------+ + + + [...] | | | | | | [place] [address] | | | | | | [phone] | | | | | | | | +--------+ + + + + documented as of this encounter Visit Diagnoses Not on filedocumented in this encounter"
--- OUTSIDE RECORDS SUMMARY | ~2020-06-15 | XMS | Encounter Summary ---
Demographics + + + | Address | [address] | | | [place] [address] | + + + | Home Phone [...] Team Providers + +------+ + | Care Biazzi Nitrator Operator Name | Role | Phone | + +------+ + | Darion Holden DO | PCP | | + +------+ + Encounter Details +--------+ + + + + | Date | Type | Department | Care Team | Description | +--------+ + + + + | 08/05/ | [facility] | [facility] | Emmanuel Daniel MD | | | 2009 | Encounter | MED CTR XRAY [address] | [address] | | | | | [place] | [address] [place], [place] | | | | | [place], [place] [address] | [address] | | | | | [phone] | | | +--------+ + + + [...] | | | | | | [place] [address] | | | | | | [phone] | | | | | | | | +--------+ + + + + documented as of this encounter Visit Diagnoses Not on filedocumented in this encounter"
--- OUTSIDE RECORDS SUMMARY | ~2020-06-15 | XMS | Encounter Summary ---
Demographics + + + | Address | [address] | | | [place] [address] | + + + | Home Phone [...] Providers + +------+ + | Care Lapel Padder Blindstitch Name | Role | Phone | + [...] | | | | | region | [address] | | | | | | Procedures | [address] | | | | | | [place] | [place], [place] | | | | | | Myelography | [address] | | | | | | Lumbar Spine | Phone: | | | | | | | [phone] | | | | | | | Fax: | | | | | | | [phone] | | +--------+--------+ + + + + [...] | | | | | region | [address] | | | | | | Procedures | [address] | | | | | | CT | [place], [place] | | | | | | Myelography | [address] | | | | | | Lumbar Spine | Phone: | | | | | | | [phone] | | | | | | | Fax: | | | | | | | [phone] | | +--------+--------+ + + + + Encounter Details +--------+ + + + + | Date | Type | Department | Care Team | Description | +--------+ + + + + | 04/07/ | Hospital | [facility] | Pia Akhtar | Spinal stenosis, | | 2016 | Encounter | MED CTR CT [address] | MD [address] | lumbar region | | | | [place], | [address] | | | | | [place] [address] | [place] [address] | | | | | [phone] | [phone] | | | | | | | [...] + + +---------+ + + | [place]-3 Fatty | CAPS, one capsule by [...] | | | | | | [place] [address] | | | | | | [phone] | | | | | | | [...]
--- OUTSIDE RECORDS SUMMARY | ~2020-06-15 | XMS | Encounter Summary ---
Demographics + + + | Address | [address] [place] [address] [address] | | | [place] [address] | + + + | Home Phone [...] [place] | | | | | [address] | | + + + + + Care Team Providers + +------+ + | Care Loading Unit Operator Seating Name | Role | Phone | + [...] as of this encounter Progress Notes Interface, Seo Manager In - 07/19/2006 3:05 AM PDTCLINIC DATE: 06/13/2002 [facility] REFERRING PHYSICIAN: Eugene Vera D.O. [address] [place] [address] Mr. Sanchez is a new patient. He [...] proceed. Martell Allen M.D. ELIZABETH / KATTY [id number] / [id number] / [id number] / [id number] cc: Eugene Vera D.O. [address] [place] [id number] signed by Interface, Seo Manager In at 07/19/2006 3:0 5 AM PDTdocumented in this encounter Plan of Treatment Not on filedocumented as of this encounter Visit Diagnoses Not on filedocumented in this encounter
--- OUTSIDE RECORDS SUMMARY | ~2020-06-15 | XMS | Encounter Summary ---
Demographics + + + | Address | [address] | | | [place] [address] | + + + | Home Phone [...] Providers + +------+ + | Care Data Management Consultant Name | Role | Phone [...] [address] | | | | | [place], | [place], | | | | | [place] [address] | [place] [address] | | | | | [phone] | [phone] | | | | | | | [...] on 07/31/19 at 15:24 elephone Julia Caceres Software Firmware Engineer - 07/31/2019 1:37 PM PDTPatient scheduled for an nayan ointment on 08/01/2019 and is needing a fasting Lipid panel. Please order, thank you. Spoke to patient, he states that he will come in the morning to have his fasting labs done before his appointment. Electronically signed by Julia Allen Software Firmware Engineer at 07/2019 1:40 PM PDTdocumented in this [...] W | | | | | | [place], | | | | | | [place] [address] | | | | | | [phone] | | | | | | | [...]
--- OUTSIDE RECORDS SUMMARY | ~2020-06-15 | XMS | Encounter Summary ---
Demographics + + + | Address | [address] | | | [place] [address] | + + + | Home Phone [...] Providers + +------+ + | Care Can Marker Name | Role | Phone | + +------+ + PCP | Unavailable | + +------+ + Encounter Details +--------+ + + + + | Date | Type | Department | Care Team | Description | +--------+ + + + + | 01/27/ | [facility] | [facility] | Jonathan, | | | 2008 | Encounter | MED CTR EMERGENCY | Martell Cr MD [address] | | | | | CENTER [address] | [address] | | | | | [place] | [place] [address] | | | | | [address] | [phone] | | | | | [phone] | | | +--------+ + + + [...] | | | | | | [place] [address] | | | | | | [phone] | | | | | | | | +--------+ + + + + documented as of this encounter Visit Diagnoses Not on filedocumented in this encounter"
--- OUTSIDE RECORDS SUMMARY | ~2020-06-15 | XMS | Encounter Summary ---
Demographics + + + | Address | [address] | | | [place] [address] | + + + | Home Phone [...] Team Providers + +------+ + | Care Anthropology And Archeology Instructor Name | Role | Phone | [...] + | 06/23/ | Office | [facility] | Silvia, | Ascending thoracic | | 2016 | Visit | CARDIOLOGY [address] | PARISA Vernon [address] | aortic aneurysm | | | | [place], | [place], | ([facility]) (Primary Dx); | | | | [place] [address] | [place] [address] | Coronary artery | | | | [phone] | [phone] | disease involving | | | | | | belk[place]ski coronary | | | | | | artery of belk[place]ski | | | | | | heart [...] of non-critical coronary artery d isease involving [place] coronary artery of [place] heart without angina pectoris, essential h ypertension, [...] cardiac complaints. He is getting ready to [employer] [place] [...] Preventative health care Coronary artery disease involving [place] coronary artery of [place] heart without angina pectoris Cannabis abuse, daily [...] by mouth every evening 90 tablet 3 [facility] [...] 3rd dose, call 911 100 tablet 3 [place]-3 Fatty Acids (SALMON OIL-1000 PO) CAPS, one [...] RESULTS reviewed during visit today primarily from [facility]: LIPID Lab Results Component Value [...] ASSESSMENT: 1. Non-critical Coronary artery disease involving [place] coronary artery of [place] heart wi thout angina pectoris: A. Normal [...] pain. 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 There are [...] to go back in 3 days to [place] for an attempt of ablation under general [...] this chart may have been created with Hedvig voice recognition software. Occasi onal wrong-word or [...] | | | | | | [place] [address] | | | | | | [phone] | | | | | | | [...] the | | | | PDT | belkofski coronary | results section. | | | | | artery of belkofski | | | | | | heart [...] MD | | | | | | ([id number]) on 06/23/2016 | | | | | [...] + + | Coronary artery disease involving [place]ski coronary artery of belk[place]ski heart without | | angina pectoris | [...]
--- OUTSIDE RECORDS SUMMARY | ~2020-06-15 | XMS | Encounter Summary ---
Demographics + + + | Address | [address] | | | [place] [address] | + + + | Home Phone [...] Providers + +------+ + | Care Advertising Display Rotator Name | Role | Phone | + [...] | | CARDIOLOGY [address] | [address] [place] | | | | | [place], | [place], | | | | | [place] [address] | [place] [address] | | | | | [phone] | [phone] | | | | | | | [...] called stating he just got out of [facility] and he has an enlarged aorta. [...] | | | | | | [place] [address] | | | | | | [phone] | | | | | | | | +--------+ + + + + documented as of this encounter Visit Diagnoses Not on filedocumented in this encounter
--- OUTSIDE RECORDS SUMMARY | ~2020-06-15 | XMS | Encounter Summary ---
Demographics + + + | Address | [address] | | | [place] [address] | + + + | Home Phone [...] Providers + +------+ + | Care School Clerk Name | Role | Phone | [...] | | [place] | [place] | | | | | [address] | [address] | | | | | [phone] | | | +--------+ + + + [...] to patient and faxed lab orders to [facility] [place]. elephone Encounter - Kira Montoya RN - [...] | | | | | | [place] [address] | | | | | | [phone] | | | | | | | | +--------+ + + + + documented as of this encounter Visit Diagnoses Not on filedocumented in this encounter"
--- OUTSIDE RECORDS SUMMARY | ~2020-06-15 | XMS | Encounter Summary ---
Demographics + + + | Address | [address] | | | [place] [address] | + + + | Home Phone [...] Providers + +------+ + | Care Tool Radial Drill Press Set Up Operator Name | Role | [...] | CARDIOLOGY [address] | [address] | Interrogation | | | | [place], | [place], | (Primary Dx); | | | | [place] [address] | [place] [address] | [place] of | | | | [phone] | [phone] | permanent cardiac | | | | [...] Paceart documentation and remote PDF scanned into Sway for remote interrogation re sults. Data collected [...] | | | | | | [place] [address] | | | | | | [phone] | | | | | | | [...]
--- OUTSIDE RECORDS SUMMARY | ~2020-06-15 | XMS | Encounter Summary ---
Demographics + + + | Address | [address] | | | [place] [address] | + + + | Home Phone [...] Providers + +------+ + | Care Pipe Threading Machine Operator Name | Role | Phone [...] + + | 04/21/ | Telephone | [facility] | Emmanuel Daniel MD | Irritable Bowel | | 2019 | | GASTROENTEROLOGY | [address], [place] | Syndrome | | | | [address] | [address] [place], [place] | | | | | [address] [place], [place] | [address] | | | | | [address] | | | | | | [phone] | | | +--------+ + + + [...] is still macy hermelinda to hear from [facility], records were refaxed 04/10/2019. She will get [...] | | | | | | [place] [address] | | | | | | [phone] | | | | | | | | +--------+ + + + + documented as of this encounter Visit Diagnoses Not on filedocumented in this encounter"
--- OUTSIDE RECORDS SUMMARY | ~2020-06-15 | XMS | Encounter Summary ---
Demographics + + + | Address | [address] | | | [place] [address] | + + + | Home Phone [...] Providers + +------+ + | Care Turning And Beading Machine Operator Name | Role | Phone [...] | | | | | [address] | [place] [address] | | | | | | [place], [place] | Phone: | | | | | | [address] | [phone] | | | | | | Phone: | Fax: | | | | | | [phone] | [phone] | | | | | | Fax: | | | | | | | [phone] | | + + + + + + + Reason for Visit + + + | Reason | Comments | + + + | Annual Exam | | + + + Encounter Details +--------+---------+ + + + | Date | Type | Department | Care Team | Description | +--------+---------+ + + + | 01/11/ | Office | [facility] | Kirk French | Irritable bowel | | 2020 | Visit | [facility] | MD Bre[address] | syndrome, | | | | PR[address] | [address] | unspecified type | | | | [address] | [place] [address] | (Primary Dx); | | | | [place], [place] | [phone] | Chronic pain | | | | [address] | | syndrome; Smoker; | | | | [phone] | | Fatigue, unspecified | | | | | | type; | | | | | | Hyperlipidemia, | | | | | | mixed; Preventative | | | | | | health care; | | | | | | Coronary artery | | | | | | disease involving | | | | | | [place] coronary | | | | | | artery of [place] | | | | | | heart [...] PLT 169 06/02/2019 No results found for: [id number] No results found for: FOLATE No results [...] Plan and Recommendations: 1. [facility] in [place] for stool studies as outlined above 2. If negative and symptoms persist, recommend capsule endoscopy (this could be completed b y local per assessment nurse or he could return to [place] for this test) 3. Nortryptiline 25mg q HS with instruction to titrate to 50mg q HS after 2 weeks if tolera kevin Follow-Up: with local per assessment nurse Counseling Time: I spent a total of 35 minutes with this patient, of which greater than 50% of the time was spent in counseling. Specific issues that were discussed included a review of the disease, diagnostic tools that help in our management plans for the patient's chronic diarrhea, abdominal cramping and weight loss and goals for treatment. Bridgette Rios MD Investigation Division Captain Gastroenterology Many co and concerns: Co bleeding Co weak Co tired Co diarrhea Co cramps Co weight changes Co 14 stool in 2 hours this AM Took 8 imodium and 2 lomotil Not taking nortriptyline as prescribed by his GI Also wants a script for hemorrhoids Pending pill endoscopy and colonoscopy May be interested in [place] if no results States was down 210# now 267 Co bedridden and can't leave the house Co incontinence States many ER visits, once a week in [place], ar with IVF and dilaudid Conc re ppm Conc re r shoulder tkr and need for mri Issues with Klonopin Was arrested for DUI, self dc 08/14, had difficult withdrawal ofr 2 weeks Walks daily now for stress and exercise 1-5 miles a day Plan: ASSESSMENT AND PLAN: 1. Approximately 40 minutes of time on this gentleman's case [id number], a lot of it was reviewing outside [...] atypica l. Followed by Dr. Rios at [facility]. I reviewed her notes [...] | | | | | | [place] [address] | | | | | | [phone] | | | | | | | | +--------+ + + + + + + +--------+ + + | Name | Type | Priori | Associated Diagnoses | Order Schedule | | | | ty | | | + + +--------+ + + | Ambulatory Referral | Outpatient | Routin | Chronic pain | Ordered: 01/11/2020 | | to [facility] | Referral | e | syndrome [...] care Routine general medical examination at a [facility] | | facility | + + | Coronary artery disease involving [place] coronary artery of [place] heart without | | angina pectoris | [...]
--- OUTSIDE RECORDS SUMMARY | ~2020-06-15 | XMS | Encounter Summary ---
Demographics + + + | Address | [address] | | | [place] [address] | + + + | Home Phone [...] Providers + +------+ + | Care Passport Application Examiner Name | Role | Phone | [...] + + | 05/16/ | Telephone | [facility] | Emmanuel Daniel MD | Lab Order | | 2019 | | GASTROENTEROLOGY | [address], [place] | | | | | [address] | [address] [place], [place] | | | | | [address] [place], [place] | [address] | | | | | [address] | | | | | | [phone] | | | +--------+ + + + [...] stools" . He ran out of the [employer] about a week ago but plans to [...] day. Has appt Sep 28 GI at [facility] and he is on their waiting list. He asks if Dr Daniel would be able to get him in sooner at [facility] or even [facility] or [facility]. Asks if Dr Daniel will write a letter to [facility] saying he can't wait until Nov. [...] | | | | | | [place] [address] | | | | | | [phone] | | | | | | | | +--------+ + + + + documented as of this encounter Visit Diagnoses Not on filedocumented in this encounter
--- OUTSIDE RECORDS SUMMARY | ~2020-06-15 | XMS | Encounter Summary ---
Demographics + + + | Address | [address] | | | [place] [address] | + + + | Home Phone [...] Providers + +------+ + | Care Cooling Pan Tender Name | Role | Phone [...] W | rescheduled) | | | | [place], | [place], | | | | | [place] [address] | [place] [address] | | | | | [phone] | [phone] | | | | | | | [...] 9:06 AM PSTPatient called back to resched [facility] appointment. Patient is now scheduled to come [...] | | | | | | [place] [address] | | | | | | [phone] | | | | | | | | +--------+ + + + + documented as of this encounter Visit Diagnoses Not on filedocumented in this encounter"
--- OUTSIDE RECORDS SUMMARY | ~2020-06-15 | XMS | Encounter Summary ---
Demographics + + + | Address | [address] | | | [place] [address] | + + + | Home Phone [...] Providers + +------+ + | Care Crown Presser Name | Role | Phone | [...] + | 11/05/ | Telephone | [facility] | Daljit Singletary, | Chest Pain | | 2016 | | CARDIOLOGY [address] | [address] [place] | | | | | [place], | [place], | | | | | [place] [address] | [place] [address] | | | | | [phone] | [phone] | | | | | | | [...] he was in the parking lot of [facility] an d wants to know if he can just come in to the office. Advised him if he has been having unre lieved chest pain that long he needs to go inside to the ED for help as it could be serious and he could have a heart attack before he could come to [place]. (Driving conditions th is morning are also not good to heavy snow in our region last night.) Patient agreed to go i [facility] ED to be seen. Electronically signed by: [...] | | | | | | [place] [address] | | | | | | [phone] | | | | | | | | +--------+ + + + + documented as of this encounter Visit Diagnoses Not on filedocumented in this encounter"
--- OUTSIDE RECORDS SUMMARY | ~2020-06-15 | XMS | Encounter Summary ---
Demographics + + + | Address | [address] | | | [place] [address] | + + + | Home Phone [...] Providers + +------+ + | Care Parts Salesman Name | Role | Phone | [...] Refill | | 2013 | | [facility] | DO [address] | | | | | [address] | [place] | | | | | [place], [place] | [address] | | | | | [address] | | | | | | [phone] | | | +--------+--------+ + + + [...] | | | | | | [place] [address] | | | | | | [phone] | | | | | | | | +--------+ + + + + documented as of this encounter Visit Diagnoses Not on filedocumented in this encounter"
--- OUTSIDE RECORDS SUMMARY | ~2020-06-15 | XMS | Encounter Summary ---
Demographics + + + | Address | [address] | | | [place] [address] | + + + | Home Phone [...] Providers + +------+ + | Care Ornamental Bronze Worker Name | Role | Phone | [...] | 2018 | Changes | GASTROENTEROLOGY | Consumer Insight Manager | | | | | [address] [facility] | | | | | | [address] [place] | | | | | | [address] | | | | | | [phone] | | | +--------+ + + + [...] | | | | | | [place] [address] | | | | | | [phone] | | | | | | | | +--------+ + + + + documented as of this encounter Visit Diagnoses Not on filedocumented in this encounter"
--- OUTSIDE RECORDS SUMMARY | ~2020-06-15 | XMS | Encounter Summary ---
Demographics + + + | Address | [address] | | | [place] [address] | + + + | Home Phone [...] Team Providers + +------+ + | Care Cube Cutter Name | Role | Phone | [...] + + | 06/20/ | Telephone | [facility] | Daljit Singletary, | Chest Pain | | 2018 | | CARDIOLOGY [address] | MD [address] [place] | | | | | [place], | [place], | | | | | [place] [address] | [place] [address] | | | | | [phone] | [phone] | | | | | | | [...] He states he refuses to go to [facility] so he will come here. I stated he needs to have somebody d rive him if he comes over here. He will find a distribution driver and take another nitro to see [...] | | | | | | [place] [address] | | | | | | [phone] | | | | | | | | +--------+ + + + + documented as of this encounter Visit Diagnoses Not on filedocumented in this encounter
--- OUTSIDE RECORDS SUMMARY | ~2020-06-15 | XMS | Encounter Summary ---
Demographics + + + | Address | [address] | | | [place] [address] | + + + | Home Phone [...] Providers + +------+ + | Care Project Structural Engineer Name | Role | Phone | [...] + | 01/05/ | Office | [facility] | Silvia, | Pacemaker - | | 2017 | Visit | CARDIOLOGY [address] | [address] | [employer] - [id number] | | | | [place], | [place], | [employer] - Implanted | | | | [place] [address] | [place] [address] | 06/14/2009 (Primary | | | | [phone] | [phone] | Dx); Chest pain, | | | [...] involving | | | | | | [place] [...] of non-critical coronary artery d isease involving [place] coronary artery of [place] heart without angina pectoris, essential h [...] pain. He went to the ER in [place] because th e NTG didn't relieved the pain. He was diagnosed with bronchitis. Otherwise he has had no ot her symptoms. He has had a good energy level. He tries to stay active. He has joined a [employer] gym and trying to exercise more often. [...] Preventative health care Coronary artery disease involving [place] coronary artery of [place] heart without angina pectoris Cannabis abuse, [...] 3RD DOSE, CALL 911 100 tablet 3 [place]-3 Fatty Acids (SALMON OIL-1000 PO) CAPS, one [...] RESULTS reviewed during visit today primarily from [facility]: LIPID Lab Results Component Value Date TRIG [...] 131 (A) 10/18/2017 I reviewed records from [facility] for office visit on 01/2017 whic h [...] overload. 2. Non-critical Coronary artery disease involving [place] coronary a rtery of [place] heart without angina pectoris: A. Normal exercise [...] cannot completely be ruled out . [facility] 12/25/13, shows non critical coronary artery [...] to go back in 3 days to [place] for an attempt of ablation under general [...] this chart may have been created with Branch voice recognition software. Occasi onal wrong-word or [...] W | | | | | | [place], | | | | | | [place] [address] | | | | | | [phone] | | | | | | | [...] involving | | | | | | [place] [...] SYDNI | | | | | | ([id number]) on 01/06/2018 | | | | | [...] + | Coronary artery disease involving [place] coronary artery of [place] heart without | | angina pectoris | + + | Hyperlipidemia, mixed Mixed hyperlipidemia | + + | Hypertension, unspecified type | + + | Syncope, unspecified syncope type | + + | Ascending thoracic aortic aneurysm (HCC) Thoracic aneurysm without mention of rupture | + + documented in this encounter
--- OUTSIDE RECORDS SUMMARY | ~2020-06-15 | XMS | Encounter Summary ---
Demographics + + + | Address | [address] | | | [place] [address] | + + + | Home Phone [...] Providers + +------+ + | Care Technical Laboratory Asst Name | Role | Phone | [...] [address] | | | | | [address] | [place] [address] | | | | | [phone] | [phone] | | | | | | | [...] | | | | | | [place] [address] | | | | | | [phone] | | | | | | | [...]
--- OUTSIDE RECORDS SUMMARY | ~2020-06-15 | XMS | Encounter Summary ---
Demographics + + + | Address | [address] [place] [address] [address] | | | [place] [address] | + + + | Home Phone [...] [place] | | | | | [address] | | + + + + + [...] | | 2020 | | Center at [facility] [address] | [facility] | (capsule referral) | | | | [address] [facility] | Road [place], [place] | | | | | for Health and | [address] | | | | | [facility] [address] | | | | | | [place], [place] | | | | | | [address] | | | | | | [phone] | | | +--------+ + + + [...]
--- OUTSIDE RECORDS SUMMARY | ~2020-06-15 | XMS | Encounter Summary ---
Demographics + + + | Address | [address] | | | [place] [address] | + + + | Home Phone [...] Providers + +------+ + | Care Hydroelectric Station Chief Name | Role | Phone | + +------+ + | Kirk French MD | PCP | | + +------+ + Encounter Details +--------+ + + + + | Date | Type | Department | Care Team | Description | +--------+ + + + + | 07/05/ | Hospital | [facility] | Conversion | Acute neck pain | | 2017 | Encounter | [facility] | Transaction, | | | | | [address] | Provider Unknown | | | | | [address] [place], [place] | [phone] | | | | | [address] | | | | | | [phone] | Alden Apolonia | | | | | | MD Shelly [address] | | | | | | [address] | | | | | | [place], [place] | | | | | | [address] | | | | | | [phone] | | | | | | | [...] + + + +---------+ + + | Guy-3 Fatty | CAPS, one capsule by | [...] | | | | | | [place] [address] | | | | | | [phone] | | | | | | | [...]
--- OUTSIDE RECORDS SUMMARY | ~2020-06-15 | XMS | Encounter Summary ---
Demographics + + + | Address | [address] | | | [place] [address] | + + + | Home Phone [...] + | Organization | [facility] | | [...] 2018 | | GASTROENTEROLOGY | [address], [place] | (egd,colon) | | | | [address] [place] | [address] [place], [place] | | | | | [address] [place], [place] | [address] | | | | | [address] | | | | | | [phone] | | | +--------+ + + + [...] out he will buy his ticket to [employer]. Recall for colonoscopy entered for 5 years [...] | | | | | | [place] [address] | | | | | | [phone] | | | | | | | | +--------+ + + + + documented as of this encounter Visit Diagnoses Not on filedocumented in this encounter"
--- OUTSIDE RECORDS SUMMARY | ~2020-06-15 | XMS | Encounter Summary ---
Demographics + + + | Address | [address] | | | [place] [address] | + + + | Home Phone [...] Providers + +------+ + | Care Automatic Machines Supervisor Name | Role | Phone | [...] [place] | | | | | [address] | [address] | | | | | [phone] | | | +--------+ + + + [...] 1:53 PM Irasema Uriarte [facility] . [facility]ira [facility] - [facility]10/2019 [...] otherwise, he'll see Dr Uriarte morning in [facility] as scheduled. Electronical ly signed by [...] FROM DR. FIGUEROA NURSE. PLEASE ADVISE AT [phone].Electronically sign ed by Renetta Dewitt at 04/10/2019 [...] | | | | | | [place] [address] | | | | | | [phone] | | | | | | | | +--------+ + + + + documented as of this encounter Visit Diagnoses Not on filedocumented in this encounter"
--- OUTSIDE RECORDS SUMMARY | ~2020-06-15 | XMS | Encounter Summary ---
Demographics + + + | Address | [address] | | | [place] [address] | + + + | Home Phone [...] Providers + +------+ + | Care Rehab Department Manager Name | Role | Phone [...] + | 08/30/ | Refill | [facility] | Kirk French | Medication Refill | | 2019 | | [facility] | MD Bre[address] | | | | | [facility] [address] | [address] | | | | | [address] | [place] [address] | | | | | [place], [place] | [phone] | | | | | [address] | | | | | | [phone] | | | +--------+--------+ + + + [...] Miscellaneous Notes Telephone Encounter - Geri Bear Marketing Director - 08/30/2019 12:37 PM PDTrefillElec tronically signed by Geri Bear Marketing Director at 08/30/2019 12:37 [address] vill[address]real [...] | | | | | | [place] [address] | | | | | | [phone] | | | | | | | | +--------+ + + + + documented as of this encounter Visit Diagnoses Not on filedocumented in this encounter"
--- OUTSIDE RECORDS SUMMARY | ~2020-06-15 | XMS | Encounter Summary ---
Demographics + + + | Address | [address] | | | [place] [address] | + + + | Home Phone [...] | + + +---------+ + | Nadine Patelgaelnvarsha | ECON | Unknown | | + + +---------+ + Care Team Providers + +------+ + | Care Him Specialists Name | Role | Phone | [...] + + | 06/17/ | Telephone | [facility] [place] | [place], | Lab Order (due for | | 2015 | | CARDIOLOGY [address] | [address] | fasting labs prior | | | | [place], | [place], | to appt) | | | | [place] [address] | [place] [address] | | | | | [phone] | [phone] | | | | | | | [...] stated Lab order s were not at [facility]. Faxed order to [facility] in [place]. Spoke to Geri from [facility] and confirmed she received the order. Patient will draw labs on 06/20/16.Electronically sign ed by Shea Metcalf at 06/19/2016 9:04 AM PDTTelephone Encounter - Nereida Lambert - 6 10:02 AM PDTPatient returned [place]'s call and was notified of fasting blood work due prior to his follow up on 06-23-16. Patient requested that orders be faxed to [facility] in [place] and he plans to do blood work tomorrow morning. Forwarding to [place] to fax orders. Petty armendariz signed by [...] | | | | | | [place] [address] | | | | | | [phone] | | | | | | | | +--------+ + + + + documented as of this encounter Visit Diagnoses + + | Diagnosis | + + | Hyperlipidemia, mixed - Primary Mixed hyperlipidemia | + + documented in this encounter"
--- OUTSIDE RECORDS SUMMARY | ~2020-06-15 | XMS | Encounter Summary ---
Demographics + + + | Address | [address] | | | [place] [address] | + + + | Home Phone [...] Providers + +------+ + | Care Field Director Name | Role | Phone | [...] | 05/07/ | Telephone | [facility] [place] | Silvia, | Other | | 2020 | | CARDIOLOGY [address] | [address] | (pacemaker/MRI/shoul | | | | [place], | [place], | good) | | | | [place] [address] | [place] [address] | | | | | [phone] | [phone] | | | | | | | [...] was supposed to have an MRI in [place] at [facility] because his pacemaker is not currently MRI [...] of Tiffanie maddox as a contact at [place] with a number of [phone] opt 2. It was not clear if [...] | | | | | | [place] [address] | | | | | | [phone] | | | | | | | | +--------+ + + + + documented as of this encounter Visit Diagnoses Not on filedocumented in this encounter"
--- OUTSIDE RECORDS SUMMARY | ~2020-06-15 | XMS | Encounter Summary ---
Demographics + + + | Address | [address] | | | [place] [address] | + + + | Home Phone [...] Providers + +------+ + | Care Wash Tub Machine Operator Name | Role | Phone | + +------+ + | Michael Amanda DO | PCP | | + +------+ + Encounter Details +--------+ + + + + | Date | Type | Department | Care Team | Description | +--------+ + + + + | 11/03/ | Emergency | [facility] | Eliel Calzada, | Palpitations; | | 2013 - | | [facility] | MD [address] | Atypical chest pain | | | | EMERG[facility]Y CENTER | [place], [place] | | | 11/04/ | | [address] | [address] | | | 2013 | | [place], [place] | | | | | | [address] | | | | | | [phone] | | | +--------+ + + + [...] + + + +---------+ + + | [place]-3 Fatty | CAPS, one capsule by | [...] 11/04/1447 Date of Service: 11/04/1446 Status: Signed Rn Ent: Blade Rizo RN (Registered Nurse) No changes evident in pt status, pt is resting quietly waiting for test results. Blade Rizo RN 11/04/1447 onver fatemeh Transaction, Provider Unknown - 11/03/2014 11:41 PM PST ED Notes by Blade Rizo RN at 11/03/142340 Author: Blade Rizo RN Service: (none) Author Type: Registered Nurse Filed: 11/03/142340 Date of Service: 11/03/142340 Status: Signed Rn Ent: Blade Rizo RN (Registered Nurse) Calm, resting quietly, awaiting test results. Call light in reach. Bldae Rizo RN 11/03/142340 onver fatemeh Transaction, Provider Unknown - 11/03/2014 11:13 PM PST ED Notes by Blade Rizo RN at 11/03/142312 Author: Blade Rizo RN Service: (none) Author Type: Registered Nurse Filed: 11/03/142312 Date of Service: 11/03/142312 Status: Signed Rn Ent: Blade Rizo RN (Registered Nurse) Dr. Calzada at bedside. Blade Rizo RN 11/03/142312 odine Eliel grady MD - 11/03/2014 11:10 PM PST ED Provider Notes by Eliel Calzada DO at 11/03/142309 Author: Eliel Calzada DO Service: (none) Author Type: Physician Filed: 11/05/14811 Date of Service: 11/03/142309 Status: Signed Rn Ent: Eliel Calzada DO (Physician) [facility] Department of Emergency Medicine 11/03/2014 History of [...] history. 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 He states his hog pusher is in [place]. Pt reports he last had an angiogram 6 months ago at [facility]. Pt reports he has anxiety [...] p rocess. 1:50 AM. Reviewed records from [facility]. Records show that the patient does [...] make sure he follows up with his hog pusher this week. Filed Vitals: 11/03/14 2305 11/03/14 [...] Procedure Component Value Ref Range Date/Time Magnesium [[id number]] Collected: 11/03/142309 Order Status: Completed Updated: 11/04/147 MAGNESIUM 2.1 1.7 - 2.4 mg/dL Phosphorus [[id number]] Collected: 11/03/142309 Order Status: Completed Updated: 11/04/147 PHOSPHORUS 3.4 2.3 - 4.8 mg/dL TSH [[id number]] Collected: 11/03/142309 Order Status: Completed Updated: 11/04/14 0008 TSH 3.20 0.45 - 5.10 uIU/mL Cardiac Panel [[id number]] (Abnormal) Collected: 11/03/142309 Order Status: Completed Updated: [...] ng/mL CK-MB Index 2.8 POC cardiac troponin [[id number]] Collected: 11/03/14 2315 Order Status: Completed Updated: [...] Documented by Eliel Calzada DO (11/04/14 01:12:44[facility]) Chest X-ray: Left anterior chest wall device with two wires, in position similar to previous radiographs, normal heart size, normal mediastinum and great vessels, no fractures or bony lesions, Normal soft tissue. Views: PA and lateral, Good technique Preliminary Interpretation by Eliel Calzada DO 2306 Atrial paced rhythm with prolonged rhythm at 84 BPM Normal SD and NENITA Normal QRS and [place] Normal QT and QTc Normal ST/T without [...] e valuation [address] [facility] [address] [facility] Emergency Department If symptoms worsen [address] [facility] [address] PARISA Russell [address] [facility] [address] Michael Amanda DO Discharge Medications: Discharge Medication [...] W | | | | | | [address] [place], | | | | | | [place] [address] | | | | | | [phone] | | | | | | | [...] CHEST 2 VIEW FRONTAL | | AND ITUICUF6511/03/2014 11:56 PM History: 54 years. Male. Acute [...] | | performed at [facility];888 | | LAB | | | | [address];[place] | | | | | | [address] | | | | + + + + + -+ | Non- | 4.97Comment: Testing | 4.20 - 5.70 | EXTERNAL | | | Red Blood | performed at [facility];888 | M/uL | LAB | | | Cells | [address];[place] | | | | | Counted | [address] | | | | + + + + + -+ | Hemoglobin | 16.8Comment: Testing | 13.2 - 17.0 | EXTERNAL | | | | performed at [facility];888 | g/dL | LAB | | | | [address];[place] | | | | | | [address] | | | | + + + + + -+ | Hematocrit, | 48.2Comment: Testing | 39.0 - 50.0 % | EXTERNAL | | | POC | performed at [facility];[address] | | LAB | | | | [address];[place] | | | | | | [address] | | | | + + + + + -+ | MCV | 97.1Comment: Testing | 80.0 - 100.0 fl | EXTERNAL | | | | performed at [facility];[address] | | LAB | | | | [address];[place] | | | | | | [address] | | | | + + + + + -+ | MCH | 33.9Comment: Testing | 27.0 - 34.0 pg | EXTERNAL | | | | performed at [facility];[address] | | LAB | | | | [address];[place] | | | | | | [address] | | | | + + + + + -+ | MCHC | 34.9Comment: Testing | 32.0 - 35.5 | EXTERNAL | | | | performed at [facility];888 | g/dL | LAB | | | | [address];[place] | | | | | | [address] | | | | + + + + + -+ | RDW-CV | 42.4Comment: Testing | 37 - 53 fl | EXTERNAL | | | | performed at [facility];[address] | | LAB | | | | [address];[place] | | | | | | [address] | | | | + + + + + -+ | Platelet | 143 (L)Comment: Testing | 150 - 400 K/uL | EXTERNAL | | | Count | performed at [facility];888 | | LAB | | | Plasma | [address];[place] | | | | | | [address] | | | | + + + + + -+ | MPV | 9.0Comment: Testing | fl | EXTERNAL | | | | performed at [facility];[address] | | LAB | | | | [address];[place] | | | | | | [address] | | | | + + + + + -+ | Differentia | AUTOMATEDComment: | | EXTERNAL | | | l Type | Testing performed at | | LAB | | | | [facility];[address];[place] [address] | | | | + + + + + -+ | % Segmented | 61.6Comment: Testing | % | EXTERNAL | | | | performed at [facility];[address] | | LAB | | | Neutrophils | [address];[place] | | | | | | [address] | | | | + + + + + -+ | % | 27.8Comment: Testing | % | EXTERNAL | | | Lymphocytes | performed at [facility];[address] | | LAB | | | | [address];[place] | | | | | | [address] | | | | + + + + + -+ | % Monocytes | 8.7Comment: Testing | % | EXTERNAL | | | | performed at [facility];[address] | | LAB | | | | [address];[place] | | | | | | [address] | | | | + + + + + -+ | % | 0.8Comment: Testing | % | EXTERNAL | | | Eosinophils | performed at [facility];[address] | | LAB | | | | [address];[place] | | | | | | [address] | | | | + + + + + -+ | % Basophils | 1.1Comment: Testing | % | EXTERNAL | | | | performed at [facility];[address] | | LAB | | | | [address];[place] | | | | | | [address] | | | | + + + + + -+ | Absolute | 5.4Comment: Testing | 1.9 - 7.4 K/uL | EXTERNAL | | | Segmented | performed at [facility];[address] | | LAB | | | Neutrophils | [address];[place] | | | | | | [address] | | | | + + + + + -+ | Absolute | 2.4Comment: Testing | 1.0 - 3.9 K/uL | EXTERNAL | | | Lymphocytes | performed at [facility];[address] | | LAB | | | | [address];[place] | | | | | | [address] | | | | + + + + + -+ | Absolute | 0.8Comment: Testing | 0 - 0.8 K/uL | EXTERNAL | | | Monocytes | performed at [facility];[address] | | LAB | | | | [address];[place] | | | | | | [address] | | | | + + + + + -+ | Absolute | 0.1Comment: Testing | 0 - 0.5 K/uL | EXTERNAL | | | Eosinophils | performed at [facility];[address] | | LAB | | | | [address];[place] | | | | | | [address] | | | | + + + + + -+ | Absolute | 0.1Comment: Testing | 0 - 0.1 K/uL | EXTERNAL | | | Basophils | performed at [facility];[address] | | LAB | | | | [address];[place] | | | | | | [address] | | | | + + + + + -+ | RBC | SLIDE SCANNED, AGREES | | EXTERNAL | | | Morphology | WITH AUTOMATED | | LAB | | | | RESULTS.Comment: Testing | | | | | | performed at [facility];[address] | | | | | | [address];[place] | | | | | | [address] | | | | + + + + + -+ | Na | 140Comment: Testing | 135 - 143 | EXTERNAL | | | | performed at [facility];888 | mmol/L | LAB | | | | [address];[place] | | | | | | [address] | | | | + + + + + -+ | K | 3.9Comment: Testing | 3.5 - 4.9 | EXTERNAL | | | | performed at [facility];888 | mmol/L | LAB | | | | [address];[place] | | | | | | [address] | | | | + + + + + -+ | Cl | 107Comment: Testing | 99 - 109 mmol/L | EXTERNAL | | | | performed at [facility];[address] | | LAB | | | | [address];[place] | | | | | | [address] | | | | + + + + + -+ | CO2 | 28Comment: Testing | 23 - 32 mmol/L | EXTERNAL | | | | performed at [facility];[address] | | LAB | | | | [address];[place] | | | | | | [address] | | | | + + + + + -+ | Anion Gap | 9Comment: Testing | 5 - 20 mmol/L | EXTERNAL | | | | performed at [facility];[address] | | LAB | | | | [address];[place] | | | | | | [address] | | | | + + + + + -+ | Glucose, | 97Comment: Testing | 65 - 99 mg/dL | EXTERNAL | | | Fasting | performed at [facility];[address] | | LAB | | | | [address];[place] | | | | | | [address] | | | | + + + + + -+ | BUN | 14Comment: Testing | 8 - 25 mg/dL | EXTERNAL | | | | performed at [facility];[address] | | LAB | | | | [address];[place] | | | | | | [address] | | | | + + + + + -+ | Creatinine | 0.98Comment: Testing | 0.70 - 1.30 | EXTERNAL | | | | performed at [facility];888 | mg/dL | LAB | | | | [address];[place] | | | | | | [address] | | | | + + + + + -+ | BUN/Creatin | 14Comment: Testing | | EXTERNAL | | | ine Ratio | performed at [facility];[address] | | LAB | | | | [address];[place] | | | | | | [address] | | | | + + + + + -+ | Calcium | 8.8Comment: Testing | 8.5 - 10.2 | EXTERNAL | | | | performed at [facility];888 | mg/dL | LAB | | | | [address];[place] | | | | | | [address] | | | | + + + + + -+ | Protein, | 6.9Comment: Testing | 6.3 - 8.2 g/dL | EXTERNAL | | | Total | performed at [facility];888 | | LAB | | | | [address];[place] | | | | | | [address] | | | | + + + + + -+ | Albumin | 3.7Comment: Testing | 3.6 - 5.0 g/dL | EXTERNAL | | | | performed at [facility];[address] | | LAB | | | | [address];[place] | | | | | | [address] | | | | + + + + + -+ | Globulin | 3.2Comment: Testing | 1.3 - 4.9 g/dL | EXTERNAL | | | | performed at [facility];[address] | | LAB | | | | [address];[place] | | | | | | [address] | | | | + + + + + -+ | A/G Ratio | 1.2Comment: Testing | 1.0 - 2.4 | EXTERNAL | | | | performed at [facility];[address] | | LAB | | | | [address];[place] | | | | | | [address] | | | | + + + + + -+ | Bilirubin | 0.9Comment: Testing | 0.1 - 1.5 mg/dL | EXTERNAL | | | Total | performed at [facility];[address] | | LAB | | | | [address];[place] | | | | | | [address] | | | | + + + + + -+ | ALP, | 60Comment: Testing | 35 - 115 U/L | EXTERNAL | | | External | performed at [facility];[address] | | LAB | | | | [address];[place] | | | | | | [address] | | | | + + + + + -+ | AST | 22Comment: Testing | 10 - 45 U/L | EXTERNAL | | | | performed at [facility];[address] | | LAB | | | | [address];[place] | | | | | | [address] | | | | + + + + + -+ | ALT | 37Comment: Testing | 10 - 65 U/L | EXTERNAL | | | | performed at [facility];[address] | | LAB | | | | [address];[place] | | | | | | [address] | | | | + + + [...] | | | at [facility];[address] | | [address];[place] [address] | | | | + + + + + -+ | CK, Total | 103Comment: Testing | 55 - 400 U/L | EXTERNAL | | | | performed at [facility];[address] | | LAB | | | | [address];[place] | | | | | | [address] | | | | + + + [...] | | performed at [facility];[address] | | | | | | [address];[place] | | | | | | [address] | | | | + + + + + -+ | aPTT, | 26Comment: Testing | 23 - 32 seconds | EXTERNAL | | | Patient | performed at [facility];[address] | | LAB | | | | [address];[place] | | | | | | [address] | | | | + + + + + -+ | CK-MB | 2.9Comment: Testing | 0.5 - 3.6 ng/mL | EXTERNAL | | | | performed at [facility];[address] | | LAB | | | | [address];[place] | | | | | | [address] | | | | + + + [...] | | performed at [facility];888 | uIU/mL | LAB | | | | [address];[place] | | | | | | [address] | | | | + + + [...] | | performed at [facility];[address] | | LAB | | | | [address];[place], [place] | | | | | | [address] | | | | + + + [...] | | performed at [facility];[address] | | LAB | | | | [address] [facility];[place], [place] | | | | | | [address] | | | | + + [...] | | | | | ONLY, -COMPUTER (224), | | | | | | editor news Michelle Butcher | | | | | | (29) on 11/04/2014 | | | | | | 6:28:13 AM | | | | + + + + + + + + | Specimen | + + | | + + + + + | Narrative | Performed At | + + + | [facility] | EXTERNAL LAB | + [...]
--- OUTSIDE RECORDS SUMMARY | ~2020-06-15 | XMS | Encounter Summary ---
Demographics + + + | Address | [address] | | | [place] [address] | + + + | Home Phone [...] Team Providers + +------+ + | Care Welfare Service Aide Name | Role | Phone | + +------+ + | Kirk French MD | PCP | | + +------+ + Encounter Details +--------+ + + + + | Date | Type | Department | Care Team | Description | +--------+ + + + + | 04/07/ | Hospital | [facility] | Pia Akhtar | Spinal stenosis of | | 2016 | Encounter | MED CTR XRAY [address] | MD [address] | lumbar region | | | | [address] | [address] | | | | | [place] [address] | [place] [address] | | | | | [phone] | [phone] | | | | | | | [...] + + + +---------+ + + | [place]-3 Fatty | CAPS, one capsule by | [...] | | | | | | [place] [address] | | | | | | [phone] | | | | | | | [...]
--- OUTSIDE RECORDS SUMMARY | ~2020-06-15 | XMS | Encounter Summary ---
Demographics + + + | Address | [address] | | | [place] [address] | + + + | Home Phone [...] Team Providers + +------+ + | Care Kick Plate Installer Name | Role | Phone | [...] Results | | 2012 | | [facility] | [address] | | | | | [address] | [place] | | | | | [place], [place] | [address] | | | | | [address] | | | | | | [phone] | | | +--------+ + + + [...] | | | | | | [place] [address] | | | | | | [phone] | | | | | | | | +--------+ + + + + documented as of this encounter Visit Diagnoses Not on filedocumented in this encounter"
--- OUTSIDE RECORDS SUMMARY | ~2020-06-15 | XMS | Encounter Summary ---
Demographics + + + | Address | [address] [place] [address] [address] | | | [place] [address] | + + + | Home Phone [...] [place] | | | | | [address] | | + + + + + Care Team Providers + +------+ + | Care Digital Developer Name | Role | Phone | [...] | Review | | | | [address] | [place], [place] | | | | | [facility] and | [address] | | | | | [facility], [facility] | [phone] | | | | | [place], [place] | | | | | | [address] | | | | | | [phone] | | | +--------+ + + + [...]
--- OUTSIDE RECORDS SUMMARY | ~2020-06-15 | XMS | Encounter Summary ---
Demographics + + + | Address | [address] | | | [place] [address] | + + + | Home Phone [...] Providers + +------+ + | Care Monorail Charger Operator Name | Role | Phone | + +------+ + PCP | Unavailable | + +------+ + Encounter Details +--------+ + + + + | Date | Type | Department | Care Team | Description | +--------+ + + + + | 08/17/ | [facility] | [facility] | Evan Gandara MD | | | 2005 | Encounter | MED CTR LABORATORY | [address] [facility] | | | | | [address] | [place] | | | | | [place] | [address] | | | | | [address] | | | | | | [phone] | | | +--------+ + + + [...] | | | | | | [place] [address] | | | | | | [phone] | | | | | | | | +--------+ + + + + documented as of this encounter Visit Diagnoses Not on filedocumented in this encounter"
--- OUTSIDE RECORDS SUMMARY | ~2020-06-15 | XMS | Encounter Summary ---
Demographics + + + | Address | [address] | | | [place] [address] | + + + | Home Phone [...] Providers + +------+ + | Care Cutter Helper Name | Role | Phone | + +------+ + | Kirk French MD | PCP | | + +------+ + Encounter Details +--------+ + + + + | Date | Type | Department | Care Team | Description | +--------+ + + + + | 06/19/ | Orders Only | [facility] | Fabrice Hylton, | Abnormal weight | | 2019 | | SYSTEM GENERIC OP | MD [address] | loss; Anxiety | | | | CONVERSION [address] | [address] [place], [place] | disorder; Chronic | | | | [address] [place], [place] | [address] | pain syndrome; | | | | [address] | | Obesity; Neuralgia | | | | [phone] | | and neuritis, | | | [...] | | | | | | [place], | | | | | | [place] [address] | | | | | | [phone] | | | | | | | [...]
--- OUTSIDE RECORDS SUMMARY | ~2020-06-15 | XMS | Encounter Summary ---
Demographics + + + | Address | [address] | | | [place] [address] | + + + | Home Phone [...] Providers + +------+ + | Care Meter Attendant Name | Role | Phone | [...] | | | | | | [address] [place], [place] | | | | | | [address] | | | | | | [phone] | | | +--------+ + + + [...] | | | | | | [place] [address] | | | | | | [phone] | | | | | | | | +--------+ + + + + documented as of this encounter Visit Diagnoses Not on filedocumented in this encounter"
--- OUTSIDE RECORDS SUMMARY | ~2020-06-15 | XMS | Encounter Summary ---
Demographics + + + | Address | [address] | | | [place] [address] | + + + | Home Phone [...] | region; Cervicalgia | | | | [place], [place] | (Fax) | | | | | [address] | C[place], | | | | | [phone] | MD Gamaliel | | +--------+ + [...] (none) Author Type: Registered Nurse Filed: 05/11/14 1502 Date of Service: 05/11/141504 Status: Signed Summons Server: Meliza Macario RN (Registered Nurse) Pt discharged [...] 1424 Date of Service: 05/11/141422 Status: Signed Summons Server: Heike Mckeon RN (Registered Nurse) Called doctor [...] | | | | | | [place] [address] | | | | | | [phone] | | | | | | | [...] | | | intrathecal use. See the picking machine operator helper examination for details of the | | | injection. Bone algorithm noncontrast technique with reformatted | | | sagittal and coronal images. Prior study for review : CT discogram | | | from 2004 was used to orient this examination given the transitional | | | anatomy of the lumbosacral junction FINDINGS: Front Services Agent is notable | | | for a [...] for intrathecal use. See | | the picking machine operator helper examination for details of the injection. Bone algorithm noncontrast | | technique with reformatted sagittal and coronal images. Prior study for review : CT | | discogram from 2004 was used to orient this examination given the transitional anatomy | | of the lumbosacral junction FINDINGS: Front Services Agent is notable for a pacing system. Anterior [...] is no significant spinal stenosis of the nnia mbar canal. There is at most moderate foraminal stenosis at the L5-S1 junction. | | | | | + + documented in this encounter Visit Diagnoses + + | Diagnosis | + + | Lumbago | + + | Postlaminectomy syndrome, cervical region | + + | Cervicalgia | + + documented in this encounter"
--- OUTSIDE RECORDS SUMMARY | ~2020-06-15 | XMS | Encounter Summary ---
Demographics + + + | Address | [address] | | | [place] [address] | + + + | Home Phone [...] Providers + +------+ + | Care Spa Technician Name | Role | Phone | + +------+ + | Kirk French MD | PCP | | + +------+ + Encounter Details +--------+---------+ + + + | Date | Type | Department | Care Team | Description | +--------+---------+ + + + | 01/05/ | Surgery | [facility] | Emmanuel Daniel MD | EGD | | 2019 | | MED CTR MP INTRA OP | [address], [place] | | | | | [address] | [address] [place], [place] | | | | | [place], [place] | [address] | | | | | [address] | | | | | | [phone] | | | +--------+---------+ + + + [...] for a few hours. Date Last Reviewed: 09/22/201619996166-3493 [employer]. [address] [place] [address]. All righ ts reserved. This information is [...] vomiting, or vomiting blood Date Last Reviewed: 05/22/201619999261-8977 [employer]. [address] [place] [address]. All righ ts reserved. This information is [...] You can't be awakened Date Last Reviewed: 09/08/201619996882-2598 [employer]. [address] [place] [address], [place] [address]. All righ ts reserved. This information is [...] + + + +---------+ + + | [place]-3 Fatty | CAPS, one capsule by | [...] of diarrhea since serving in the in [facility]. His last episodes of diarrhea started [...] disease. CT scan done through [facility] November s howed mild diverticulosis without evidence [...] Endoscopy Patient: Moe Sanchez : 1960 Acct: [id number] Exam Date: December Doctor: Emmanuel Daniel MD [...] If unable to reach your physician, call [facility] Emergency Department at [address] [...] Exams Patient: Moe Sanchez : 1960 Acct: [id number] Exam Date: December Doctor: Emmanuel Daniel MD [...] If unable to reach your physician, call [facility] Emergency Department at [address] [...] | | | | | | [place] [address] | | | | | | [phone] | | | | | | | [...] [address], | REFERENCE LAB | | [place], [place] [id number] Table Games Dealer: Miguel Galarza MD, Phone: | [facility] | | [phone] | | + + + + + + + + | Performing | Address | City/State/Zipcode | Phone Number | | Organization | | | | + + + + + | REFERENCE LAB | [address] | [place], [place] | [phone] | | [facility] | [facility] | [address] | | + + + + + [...] | REFERENCE LAB | | [place] [id number] Table Games Dealer: Miguel Galarza MD, Phone: | [facility] | | [phone] | | + + + + + + + + | Performing | Address | City/State/Zipcode | Phone Number | | Organization | | | | + + + + + | REFERENCE LAB | [address] | [place] | [phone] | | [facility] | [place] | [address] | | + + + + + [...] [address] | [place] | [phone] | | [facility] | | [address] | | | - LABORATORY | | [...] [address] | [place] | [phone] | | [facility] | | [address] | | | - LABORATORY | | [...] [address] | [place] | [phone] | | [facility] | | [address] | | | - LABORATORY | | [...] + | [facility] [facility] | [address] | [place] | [phone] | | [facility] | | [address] | | | - LABORATORY | | [...] [address] | [place] | [phone] | | [facility] | | [address] | | | - LABORATORY | | [...] [address] | [place] | [phone] | | [facility] | | [address] | | | - LABORATORY | | | | + + + + + EGD (01/05/2019 8:36 AM PST) + + | Specimen | + + | | + + + + -+ | Narrative | Performed At | + + -+ | | [facility] | | GastroenterologyPatient Name: Moe Venegas Date: | PROVATION | | 01/05/2019 8:36 AMMRN: [id number] #: [id number] of : | | | 9Admit Type: AmbulatoryAge: 58Room: [facility] 01Gender: MaleNote | | | Status: FinalizedAttending MD: Emmanuel Daniel , MDProcedure: | | | Upper GI endoscopyIndications: Diarrhea, Weight | | | lossProviders: Emmanuel Daniel MD, Heidi Akinsfield, | | | RN, Kim Hicks, Wool Shearing Supervisor, | | | Jarett Barakat MD [...] physician, the nurse, the anesthesiologist and the hydroelectric production technician | | | in the endoscopy [...] | | Imaging was performed using the [employer] | | | Endoscopy (FICE) [...] 8:43:57 AMScope Out: 8:49:50 AM [facility]. | | | [facility], [address] [place] [address] | | | [phone] | | |Recommendation: | | | - [...] |Scope Out: 8:49:50 AM | | | [facility]. [facility], [address] [place] [address] | | | [address] | | + + -+ + +---------+ [...] | PROVATION | | 01/05/2019 8:36 AMMRN: [id number] #: [id number] of : | | | 9Admit Type: AmbulatoryAge: 58Room: [facility] 01Gender: MaleNote | | | Status: FinalizedAttending MD: Emmanuel Daniel [facility] | | | ColonoscopyIndications: Clinically significant diarrhea of | | | unexplained origin, Weight lossProviders: | | | Emmanuel Daniel MD, Heidi An RN, [place] | | | Fiorella Hicks, Wool Shearing Supervisor, Jarett Alejo | | | MD Roshni [...] | | | the anesthesiologist and the hydroelectric production technician in the endoscopy suite. | [...] | 9:06:28 AM [facility], [address] [facility], | | | [place] [address] | | | - Discharge patient to [...] 9:06:28 AM | | | [facility], [address] [facility], [place], [place] | | | [address] | | + + -+ + +---------+ [...] | | | (atherosclerotic heart disease of [place] coronary artery without | | | angina [...] A. The | | | specimen, labeled "[place], duodenal biopsy" is received in formalin | | | and consists of seven 0.1-0.5 cm lin fragments. Entirely submitted in | | | (A1). B. The specimen, labeled "[place], right colon" is received | | | in formalin and consists of six 0.2-0.3 cm lin fragments. Entirely | | | submitted in (B1). C. The specimen, labeled "[place], left colon" | | | is received in formalin and consists of six 0.2-0.3 cm lin-pink | | | fragments. Entirely submitted in (C1). am:AMB:rds PERFORMING | | | LABORATORY: The technical component was performed by [employer] | | | [facility], [address] [place] [address] (Botanical Technical Officer: | | | Kailey Stafford MD; CLIA# [id number]). Professional interpretation was | | | performed by [facility] | | | [place] [address] (Botanical Technical Officer: [place] | Shanique Dao M.D.; CLIA#: [id number]). Diagnostician: Ishaan Fitzpatrick | | | Sylwia [...] PRN, Wheezing, | | | Starting [facility] 01/05/19 at 0924, | | [...] PRN, Nausea, Vomiting, Starting | | | [facility] 01/05/19 at 0924, | | [...]
--- OUTSIDE RECORDS SUMMARY | ~2020-06-15 | XMS | Encounter Summary ---
Demographics + + + | Address | [address] | | | [place] [address] | + + + | Home Phone [...] Providers + +------+ + | Care Market Risk Specialist Name | Role | Phone [...] | CARDIOLOGY [address] | [address] [place] | (Primary Dx); | | | | [place], | [place], | Tachycardia; | | | | [place] [address] | [place] [address] | Coronary artery | | | | [phone] | disease involving | | | | | | [place] coronary | | | | | | artery of [place] | | | | | | [...] | | | | | | [place] [address] | | | | | | [phone] | | | | | | | [...] involving | | | | | | [place] coronary | | | | | | artery of [place] | | | | | | [...] MD | | | | | | ([id number]) on 06/29/2018 | | | | | [...] + + | Coronary artery disease involving [place] coronary artery of [place] heart without | | angina pectoris | + + | Hypertension, unspecified type | + + documented in this encounter"
--- OUTSIDE RECORDS SUMMARY | ~2020-06-15 | XMS | Encounter Summary ---
Demographics + + + | Address | [address] | | | [place] [address] | + + + | Home Phone [...] + +------+ + | Care Client Service Representative Name | Role | Phone [...] | CARDIOLOGY [address] | [address] [place] | Interrogation | | | | [place], | [place], | (Primary Dx); | | | | [place] [address] | [place] [address] | Pacemaker; | | | | [phone] | [phone] | Sinoatrial node | | | | [...] (HCC)Date of Remote Interrogation: 2018 Refer to [employer] documentation and remote PDF scanned into [employer] for remote interrogation re sults. Data collected [...] | | | | | | [place] [address] | | | | | | [phone] | | | | | | | [...]
--- OUTSIDE RECORDS SUMMARY | ~2020-06-15 | XMS | Encounter Summary ---
Demographics + + + | Address | [address] | | | [place] [address] | + + + | Home Phone [...] Team Providers + +------+ + | Care Superior Court Judge Name | Role | Phone [...] | 05/07/ | Telephone | [facility] [place] | Silvia, | Other | | 2020 | | CARDIOLOGY [address] | PARISA [place] [address] | (pacemaker/MRI/shoul | | | | [place], | [place], | good) | | | | [place] [address] | [place] [address] | | | | | [phone] | [phone] | | | | | | | [...] was supposed to have an MRI in [place] at [facility] because his pacemaker is not currently [...] of Tiffanie maddox as a contact at [place] with a number of [phone] opt 2. It was not clear if [...] | | | | | | [place] [address] | | | | | | [phone] | | | | | | | | +--------+ + + + + documented as of this encounter Visit Diagnoses Not on filedocumented in this encounter"
--- OUTSIDE RECORDS SUMMARY | ~2020-06-15 | XMS | Encounter Summary ---
Demographics + + + | Address | [address] [place] [address] [address] | | | [place] [address] | + + + | Home Phone [...] [place] | | | | | [address] | | + + + + + [...] | | | | [address] [place] | [place], [place] | | | | | for Health and | [address] | | | | | Healing, Building [address] | [phone] | | | | | [employer], [place] | | | | | | [address] | | | | | | [phone] | | | +--------+ + + + [...]
--- OUTSIDE RECORDS SUMMARY | ~2020-06-15 | XMS | Encounter Summary ---
Demographics + + + | Address | [address] [place] [address] [address] | | | [place] [address] | + + + | Home Phone [...] [place] | | | | | [address] | | + + + + + Care Team Providers + +------+ + | Care Maintenance Groundskeeper Name | Role | Phone | + [...] | | [address] | [place], [place] | | | | | for Health and | [address] | | | | | [facility] | [phone] | | | | | [place], [place] | | | | | | [address] | | | | | | [phone] | | | +--------+ + + + [...]
--- OUTSIDE RECORDS SUMMARY | ~2020-06-15 | XMS | Encounter Summary ---
Demographics + + + | Address | [address] | | | [place] [address] | + + + | Home Phone [...] Providers + +------+ + | Care Collection Agent Name | Role | Phone | + +------+ + PCP | Unavailable | + +------+ + Encounter Details +--------+ + + + + | Date | Type | Department | Care Team | Description | +--------+ + + + + | 06/13/ | [facility] | [facility] | Daljit Singletary, | | | 2008 | Encounter | MED CTR LABORATORY | [address] | | | | | [address] [place] | [place], | | | | | [place] | [place] [address] | | | | | [address] | [phone] | | | | | [phone] | | | +--------+ + + + [...] | | | | | | [place] [address] | | | | | | [phone] | | | | | | | | +--------+ + + + + documented as of this encounter Visit Diagnoses Not on filedocumented in this encounter"
--- OUTSIDE RECORDS SUMMARY | ~2020-06-15 | XMS | Encounter Summary ---
Demographics + + + | Address | [address] | | | [place] [address] | + + + | Home Phone [...] Providers + +------+ + | Care Special Projects Coordinator Name | Role | Phone | [...] 2015 | | CARDIOLOGY [address] | DISPATCHER RADIOACTIVE WASTE DISPOSAL [address] | reprogramming/check | | | | [place], | [place], [place] | DO NOT DELETE | | | | [place] [address] | [address] | (Primary Dx); | | | | [phone] | | Pacemaker - | | | [...] | | | | | | [place] [address] | | | | | | [phone] | | | | | | | [...] | | 2. Coronary artery disease involving pechanga coronary artery of | | | pechanga heart without angina pectoris I25.10 414.01 ECHO [...]
--- OUTSIDE RECORDS SUMMARY | ~2020-06-15 | XMS | Encounter Summary ---
Demographics + + + | Address | [address] | | | [place] [address] | + + + | Home Phone [...] Provider Unknown | | | | | [place], [place] | [phone] | | | | | [address] | (Fax) | | | | | [phone] | | | +--------+ + + + [...] + + + +---------+ + + | [place]-3 Fatty | CAPS, one capsule by | [...] | | | | | | | #[id number], exp 07/2016 | | | | | [...] | | | | | | [place], | | | | | | [place] [address] | | | | | | [phone] | | | | | | | [...]
--- OUTSIDE RECORDS SUMMARY | ~2020-06-15 | XMS | Encounter Summary ---
Demographics + + + | Address | [address] | | | [place] [address] | + + + | Home Phone [...] Providers + +------+ + | Care Train Master Name | Role | Phone | [...] | Refill | [facility] [place] | Geir Angel, | Medication Refill | | 2017 | | CARDIOLOGY [address] | BRANDING MACHINE TENDER [address] | | | | | [place], | [place], [place] | | | | | [place] [address] | [address] | | | | | [phone] | | | +--------+--------+ + + + [...] | | | | | | [place] [address] | | | | | | [phone] | | | | | | | | +--------+ + + + + documented as of this encounter Visit Diagnoses Not on filedocumented in this encounter"
--- OUTSIDE RECORDS SUMMARY | ~2020-06-15 | XMS | Encounter Summary ---
Demographics + + + | Address | [address] | | | [place] [address] | + + + | Home Phone [...] [address] | | | | | [address] [place], [place] | [place] [address] | | | | | [address] | [phone] | | | | | [phone] | | | +--------+--------+ + + + [...] Miscellaneous Notes Telephone Encounter - Geri Bear Production Estimator - 06/10/2020 9:02 AM PDTrefillElec tronically signed by Geri Bear Production Estimator at 06/10/2020 9:02 AM PDTdocujean pierre villarreal [...] | | | | | | [place] [address] | | | | | | [phone] | | | | | | | | +--------+ + + + + documented as of this encounter Visit Diagnoses Not on filedocumented in this encounter"
--- OUTSIDE RECORDS SUMMARY | ~2020-06-15 | XMS | Encounter Summary ---
Demographics + + + | Address | [address] [place] [address] [address] | | | [place] [address] | + + + | Home Phone [...] [place] | | | | | [address] | | + + + + + Care Team Providers + +------+ + | Care First Front Ventilator Name | Role | Phone | + [...] | | | | | [place] | [place], [place] | | | | | | [place], [place] | [address] | | | | | | [address] | Phone: | | | | | | Phone: | [phone] | | | | | | [phone] | Fax: | | | | | | Fax: | [phone] | | | | | | [phone] | | +--------+--------+ + + + + Encounter Details +--------+---------+ + + + | Date | Type | Department | Care Team | Description | +--------+---------+ + + + | 09/28/ | Office | [facility] | Bridgette Rios, | Chronic diarrhea | | 2019 | Visit | [facility] at [facility] [address] | [address] | (Primary Dx); | | | | [address] [facility] | [place], [place] | Abdominal cramping; | | | | for Health and | [address] | Unintentional weight | | | | [facility] 2 | [phone] | loss | | | | [place], [place] | | | | | | [address] | | | | | | [phone] | | | +--------+---------+ + + + [...] some lab orders to [place] 2. hardware supplies sales representative the nortryptiline and take 1 tablet each [...] different fr om the original. Gastroenterology Clinic [facility] ~ Initial Consultation / New Patient [...] CT scan done through [facility] November show ed mild diverticulosis without [...] of Present Illness: Here with his from [place] for second opinion regarding severe abdominal cramps, isreal rrhea and weight loss following a GI illness contracted during a trip to [place]. He reports that 2 years ago he was traveling in [place] and he had some suspicious seafood. He develo ps profound bloody diarrhea with severe abdominal pain. He was hospitalized in [facility] and w as treated with IV hydration. [...] file Gets together: Not on file Attends scientology service: Not on file Active member of [...] Plan and Recommendations: 1. [facility] in [place] for stool studies as outlined above 2. If negative and symptoms persist, recommend capsule endoscopy (this could be completed b y local opener tender or he could return to [place] for this test) 3. Nortryptiline 25mg q HS with instruction to titrate to 50mg q HS after 2 weeks if tolera kevin Follow-Up: with local opener tender Counseling Time: I spent a total of 35 minutes with this patient, of which greater than 50 % of the time was spent in counseling. Specific issues that were discussed included a revie w of the disease, diagnostic tools that help in our management plans for the patient's chron ic diarrhea, abdominal cramping and weight loss and goals for treatment. Bridgette Rios MD [facility] documented in this e ncounter Plan [...]
--- OUTSIDE RECORDS SUMMARY | ~2020-06-15 | XMS | Encounter Summary ---
Demographics + + + | Address | [address] | | | [place] [address] | + + + | Home Phone [...] Providers + +------+ + | Care Copy Chief Name | Role | Phone | [...] | 06/06/ | Telephone | [facility] [place] | Silvia, | Other (Cardiac | | 2019 | | CARDIOLOGY [address] | Janeen, TUMBLER DYEING MACHINE OPERATOR [address] | Clearance) | | | | [place], | [place], | | | | | [place] [address] | [place] [address] | | | | | [phone] | [phone] | | | | | | | [...] 06/14/2019 8:53 AM Sarthak note faxed to 1 [phone], arlette Galeas. ...........................................Magi Farr RN on 0 [...] RN - 06/06/2019 12:36 PM PDTStephenidi [facility] cardiac [facility] for this patient scheduled to have Left shoulder total arthroplasty o n 06/13/19. Routing to Janeen as she is seeing patient this afternoon in clinic. Please fax chart note to Gudelia at [phone].............................................Kasie Ashley RN on 06/06/19 at 12:38 documented [...] | | | | | | [place] [address] | | | | | | [phone] | | | | | | | | +--------+ + + + + documented as of this encounter Visit Diagnoses Not on filedocumented in this encounter"
--- OUTSIDE RECORDS SUMMARY | ~2020-06-15 | XMS | Encounter Summary ---
Demographics + + + | Address | [address] | | | [place] [address] | + + + | Home Phone [...] Providers + +------+ + | Care Night Warehouse Selector Name | Role | Phone | [...] + + | 06/24/ | Telephone | [facility] | Daljit Singletary, | Lab Order | | 2018 | | CARDIOLOGY [address] | [address] [place] | | | | | [place], | [place], | | | | | [place] [address] | [place] [address] | | | | | [phone] | [phone] | | | | | | | [...] at 15:54 elephone Encounter - Rachel Carrasquillo Refining Still Operator - 06/24/2018 3:42 PM PDTPatient is needing a fasting L ipid panel drawn. Voicemail not yet set up. Electronically signed by Rachel Carrasquillo Refining Still Operator at 01/2018 3:42 PM PDTdocumented in this [...] | | | | | | [place], | | | | | | [place] [address] | | | | | | [phone] | | | | | | | [...] 06/24/2018, Expires: | | | | | [place] coronary | 06/24/2019 | | | | | artery of [place] | | | | | | heart without angina | | | | | | pectoris | | | | | | Hyperlipidemia, | | | | | | mixed | | + +------+--------+ + + documented as of this encounter Visit Diagnoses + + | Diagnosis | + + | Coronary artery disease involving [place] coronary artery of [place] heart without | | angina pectoris - Primary | + + | Hyperlipidemia, mixed Mixed hyperlipidemia | + + documented in this encounter"
--- OUTSIDE RECORDS SUMMARY | ~2020-06-15 | XMS | Encounter Summary ---
Demographics + + + | Address | [address] | | | [place] [address] | + + + | Home Phone [...] Providers + +------+ + | Care Knife Setter Grinder Machine Name | Role | Phone | [...] [place] | | | | | [address] [place], [place] | [place] [address] | | | | | [address] | [phone] | | | | | [phone] | | | +--------+ + + + [...] bleeding; he states that he was at [facility] and they wanted to take him to [facility] but he declined. He requested [...] CHILDRESS in Dr. Rios off ice at [facility]. Patient stated that Dr. Rios recommend that he have a colon procedure RAFFI d ue to his bleeding. Patient stated that he would like to do his pill and colon at the same t sherin. Patient would like to cancel his pill cam appt on DEC 25 2019. Patient would like to do colon here at [facility]. Copies of referral have been sent to scan, in Dr. Gandhi box and placed in Lisa CHILDRESS desk . Patient aware of Dr. Gandhi and Lisa borjas. Provider/Nurse: [place]/ Call back number:[phone] documented in this encou nter Plan of [...] W | | | | | | [place], | | | | | | [place] [address] | | | | | | [phone] | | | | | | | [...]
--- OUTSIDE RECORDS SUMMARY | ~2020-06-15 | XMS | Encounter Summary ---
Demographics + + + | Address | [address] | | | [place] [address] | + + + | Home Phone [...] + + | 05/15/ | Office | [facility] | Matthew Uriarte | Kidney stones | | 2019 | Visit | [address] | MD Tawanna [address] | (Primary Dx) | | | | [place] | [address] [facility] [place] | | | | | [address] | [address] | | | | | [phone] | | | +--------+---------+ + + + [...] LHC; Surgeon: Daljit Singletary MD; Location: [facility] CV LAB CARDIAC CATHERIZATION N/A 01/25/2019 Procedure: CV Cor Angio; Surgeon: Daljit Singletary MD; Location: [facility] CV LAB COLONOSCOPY N/A 12/24/2017 Procedure: COLONOSCOPY; Surgeon: Emmanuel Daniel MD; Location: [facility] MEDICAL PROCEDURE UNIT COLONOSCOPY N/A 01/05/2019 Procedure: COLONOSCOPY; Surgeon: Emmanuel Daniel MD; Location: [facility] MEDICAL PROCEDURE UNIT EGD 12/24/2017 [...] EGD; Surgeon: Emmanuel Daniel MD; Location: [facility] MEDICAL PROCEDURE UNIT UPPER GASTROINTESTINAL ENDOSCOPY N/A 01/05/2019 Procedure: EGD; Surgeon: Emmanuel Daniel MD; Location: [facility] MEDICAL PROCEDURE UNIT URETEROSCOPY Left 04/13/2019 Procedure: Cystoscopy, Left ureteroscopy with laser lithotripsy, Left ureteral stent place ment; Surgeon: Matthew Uriarte MD; Location: [facility] MAIN OR VASECTOMY Family History: [...] 911, Disp: 100 ta blet, Rfl: 3 [place]-3 Fatty Acids (SALMON OIL-1000 PO), CAPS, one [...] pH, Urine 8.0 5.0 - 8.0 Specific Steele 1.008 1.001 - 1.030 Protein, Urine Negative [...] have not thoroughly proofread this note, and healthcare administrative assistant errors are very likely to occur. [...] | | | | | | [place] [address] | | | | | | [phone] | | | | | | | [...]
--- OUTSIDE RECORDS SUMMARY | ~2020-06-15 | XMS | Encounter Summary ---
Demographics + + + | Address | [address] | | | [place] [address] | + + + | Home Phone [...] Providers + +------+ + | Care Sales Process Manager Name | Role | Phone | [...] + + | 01/26/ | Telephone | [facility] | Daljit Singletary, | Other (chest pain) | | 2013 | | CARDIOLOGY [address] | MD [address] | | | | | [place], | [place], | | | | | [place] [address] | [place] [id number] | | | | | [phone] | [phone] | | | | | | | [...] | | | | | | [place] [id number] | | | | | | [phone] | | | | | | | | +--------+ + + + + documented as of this encounter Visit Diagnoses Not on filedocumented in this encounter"
--- OUTSIDE RECORDS SUMMARY | ~2020-06-15 | XMS | Encounter Summary ---
Demographics + + + | Address | [address] | | | [place] [address] | + + + | Home Phone [...] | | | | | | [address] [place], [place] | | | | | | [address] | | | | | | [phone] | | | +--------+ + + + [...] | | | | | | [place] [address] | | | | | | [phone] | | | | | | | | +--------+ + + + + documented as of this encounter Visit Diagnoses Not on filedocumented in this encounter"
--- OUTSIDE RECORDS SUMMARY | ~2020-06-15 | XMS | Encounter Summary ---
Demographics + + + | Address | [address] | | | [place] [address] | + + + | Home Phone [...] Team Providers + +------+ + | Care Maori Liaison Adviser Name | Role | Phone | [...] + | 01/30/ | Telephone | [facility] | [place], | Other (medication | | 2019 | | CARDIOLOGY [address] | PARISA [place] [address] | question) | | | | [place], | [place], | | | | | [place] [address] | [place] [address] | | | | | [phone] | [phone] | | | | | | | [...] - 02/02/2020 2:36 PM PDTPatient notified, [facility], leg swelling is gone ..........................................El radha Valentine RN on 02/02/20 at 2:37 PM elephone [facility] RN - 02/01/2020 12:43 PM PDTLeft [...] and the physician who prescribed Lyrica at [facility] in [place] suggested he get BLE ultrasounds to check for DVT's. He would like to get ultr asounds done here at [place]. I returned patients call and informed him of Janeen's last message on this note, and patien t states he wants to stop taking Lyrica because of this side effect. He states he is still h aving foot pain because of the edema. I advised patient to follow up today with the [facility] to notify them and obtain the ul trasound orders and complete them here at [place]. He will notify us of any worsening [...] that he sees a pain specialist in [place] and they would like him to star [...] | | | | | | [place] [address] | | | | | | [phone] | | | | | | | | +--------+ + + + + documented as of this encounter Visit Diagnoses Not on filedocumented in this encounter
--- OUTSIDE RECORDS SUMMARY | ~2020-06-15 | XMS | Encounter Summary ---
Demographics + + + | Address | [address] | | | [place] [address] | + + + | Home Phone [...] Providers + +------+ + | Care Research Recruiter Name | Role | Phone | [...] + + | 06/06/ | Office | [facility] | [place], | Essential | | 2019 | Visit | CARDIOLOGY [address] | PAR[place] [address] | hypertension | | | | [place], | [place], | (Primary Dx); | | | | [place] [address] | [place] [address] | Sinoatrial node | | | | [phone] | [phone] | dysfunction (HCC) | | | | [...] | | | artery of white mountain | | | | | | [...] encounter Patient Instructions Patient Instructions Julia Allen, Feed Adviser - 06/06/2019 2:15 PM PDT1. Take a [...] of -critical coronary artery dise ase involving white mountain coronary artery of white mountain heart without angina pectoris, essential hype [...] was seen in the emergency department at [facility] in [place] due to chest pain, no medication changes at that time. On 06/02/2019 he was seen here in the [facility] with chest pain, irregular heart [...] 3RD DOSE, CALL 911 100 tablet 3 Darby-3 Fatty Acids (SALMON OIL-1000 PO) CAPS, one capsule by mouth daily twice daily ondansetron (ZOFRAN ODT) 4 mg disintegrating tablet Take 4 mg by mouth every 8 hours as needed for Nausea. ONE TOUCH DELICA LANCETS [place] [facility] [...] ASSESSMENT: 1. Non-critical Coronary artery disease involving white mountain coronary artery of white mountain heart [facility] angina pectoris: A.Normal exercise sestamibi [...] to go back in 3 days to [place] for an attempt of ablation under general [...] visit, or sooner with concerns. Julia Clemente, Feed Adviser am acting as a scribe on behalf of, and in the presenc e of PARISA Lomas. - Julia Allen, Feed Adviser 06/06/2019 15:10 IJaneen ARNP, personally performed the services described in this documentati on, as scribed in my presence and it is both accurate and complete. -PARISA Lomas 06/06/2019 Portions of this chart may have been created with Puddle voice recognition software. Occasi onal wrong-word or [...] | | | | | | [place] [address] | | | | | | [phone] | | | | | | | [...] MD | | | | | | ([id number]) on 06/06/2019 | | | | | [...] coronary artery of white mountain heart without | | angina pectoris | + + | Syncope, unspecified syncope type | + + | Ascending thoracic aortic aneurysm (HCC) Thoracic aneurysm without mention of rupture | + + | Hyperlipidemia, mixed Mixed hyperlipidemia | + + documented in this encounter
--- OUTSIDE RECORDS SUMMARY | ~2020-06-15 | XMS | Encounter Summary ---
Demographics + + + | Address | [address] | | | [place] [address] | + + + | Home Phone [...] Team Providers + +------+ + | Care Hole Digger Operator Name | Role | Phone [...] | | 2013 | | [facility] | DO [address] | | | | | [address] | [place], [place] | | | | | [place], [place] | [address] | | | | | [address] | | | | | | [phone] | | | +--------+ + + + [...] | | | | | | [place] [address] | | | | | | [phone] | | | | | | | | +--------+ + + + + documented as of this encounter Visit Diagnoses Not on filedocumented in this encounter"
--- OUTSIDE RECORDS SUMMARY | ~2020-06-15 | XMS | Encounter Summary ---
Demographics + + + | Address | [address] | | | [place] [address] | + + + | Home Phone [...] Providers + +------+ + | Care Probation And Patrol Agent Name | Role | Phone | [...] having issues with | | | | [place], | [place], | high blood pressure) | | | | [place] [address] | [place] [address] | | | | | [phone] | [phone] | | | | | | | [...] that he returned danyell e Wednesday from [facility]. He reports that his blood pressure [...] | | | | | | [place] [address] | | | | | | [phone] | | | | | | | | +--------+ + + + + documented as of this encounter Visit Diagnoses Not on filedocumented in this encounter"
[~2020-06-15 21:47] MED LIST changes: +VICODIN HP 10-1 EAC1 PO
--- OUTSIDE RECORDS SUMMARY | 2020-06-15 21:50 | XMS ---
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 Recreation Counselor Events 1 event(s) in the past 18 months Most recent security events: Elopement at [facility] 04/15/2020 20:03 - Other Details: PATIENT LWBS. CRITERIA MET - Group Notification - 6 ED Visits in 6 Months - [facility] - Has Care Guidelines - PDMP - [facility] - 2 Visits in 30 Days CARE PROVIDERS TOO MORALES Specialist 09/05/2019-Current MD Cr PHONE: Unknown SARAH PEOPLES Internal Medicine Current PHONE: [phone] Joseline has no Care Guidelines for this patient. 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 - W PROVIDED DR COSTA WITH DR BUTT CONTACT INFORMATION-THEY HAVE ACCESS TO [facility] RECORDS AND WERE ABLE TO PULL UP PATIENT PAST VISIT WITH DR BUTT. - GOING FORWARD DR COSTA WOULD LIKE ED RECORDS SENT TO THE OFFICE [phone]. THEY WILL WORK WITH DR BUTT AND COMMUNICATE ON PATIENT CHRONIC CONDITION. 01/01/2020 [facility] Care Recommendation: - USE EXTREME CAUTION IN GIVING NARCOTICS. - Avoid Discharge Narcotic prescriptions if at all possible. Physician discretion. 12/06/2019 [facility] -SPOKE WITH PATIENT REGARDING CHRONIC CARE AND ED USE -PATIENT HAS GASTROENTEROLOGY APPT WITH DR COSTA ([facility]) 12/18/19 0830 - STATES HE HAS A RIDE -PATIENT HAS CARDIOLOGY APPT WITH DR TURNER ([facility]) 01/01/20 0730 -CONACT INFO GIVEN FOR CASE MANAGEMENT FOR HELP WITH RESOURCES [place] VISIT COUNT (12 MO.) [facility]. TOTAL 25 NOTE: Visits indicate total known visits. ED/UCC VISIT TRACKING (12 MO.) 06/15/2020 21:47 [facility] TYPE: Emergency COMPLAINT: - CHEST PAIN 06/07/2020 21:29 [facility] TYPE: Emergency COMPLAINT: - LEFT LEG PAIN/ NON INJURY DIAGNOSES: - Allergy status to penicillin - terminal computer operator (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 - Allergy status to other antibiotic agents status - Essential (primary) hypertension - Other fracture of upper and lower end of left fibula, subsequ - Other detention (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 - Allergy status to narcotic agent status - Pain in left lower leg - Allergy status to other drugs, medicaments and biological sub 06/03/2020 13:29 [facility] [place] TYPE: Emergency COMPLAINT: - LEG PAIN, INJ DIAGNOSES: - Procedure and treatment not carried out due to patient leavin 05/03/2020 13:19 [facility] [place] TYPE: Emergency DIAGNOSES: - Unspecified injury of right shoulder and upper arm, initial e - Unspecified injury of right hip, initial encounter - fall, shoulder pain,back pain 04/28/2020 15:37 [facility] [place] TYPE: Emergency DIAGNOSES: - Epigastric pain - VOMITING DIARRHEA ABD PAIN - Nausea with vomiting, unspecified 04/15/2020 23:22 [facility] [place] TYPE: Emergency COMPLAINT: - ANKLE INJURY DIAGNOSES: - Allergy status to other drugs, medicaments and biological sub - Pain in left ankle and joints of left foot - Pure hypercholesterolemia, unspecified - Other detention (current) drug therapy - Fall on same [...] narcotic agent status - 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 - Essential (primary) hypertension 01/20/2020 12:56 [facility] TYPE: Emergency COMPLAINT: - VOMITING, DIARRHEA DIAGNOSES: - Other detention (current) drug therapy - Nausea - Allergy status to penicillin - Diarrhea, unspecified - Pure hypercholesterolemia, unspecified - Unspecified abdominal pain - Essential (primary) hypertension 01/05/2020 22:34 [facility] [place] TYPE: Emergency COMPLAINT: - BLEEDING/ABDOMINAL PAIN DIAGNOSES: - Other detention (current) drug therapy - Allergy status to narcotic agent status - Allergy status to penicillin - Allergy status to other antibiotic agents status - Noninfective gastroenteritis and colitis, unspecified - Essential (primary) hypertension - FDC (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 - Lower abdominal pain, unspecified 12/31/2019 10:38 [facility] TYPE: Emergency COMPLAINT: - ABD PAIN, BLOOD IN STOOL DIAGNOSES: - Allergy status to other antibiotic agents status - Unspecified abdominal pain - Allergy status to narcotic agent status - Right lower quadrant pain - 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 - Other fecal abnormalities - FDC (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 - Allergy status to penicillin - Other chronic pain - Essential (primary) hypertension 12/06/2019 13:52 [facility] TYPE: Emergency COMPLAINT: - ABDOMINAL PAIN DIAGNOSES: - Allergy status to other antibiotic agents status - Allergy status to penicillin - terminal computer operator (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 - Unspecified abdominal pain - Essential (primary) hypertension - 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 - Allergy status to [...] dependence - Essential (primary) hypertension - 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 - terminal computer operator (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 - Allergy status to other antibiotic agents status - Allergy status to narcotic agent status 11/01/2019 12:00 [facility] [place] TYPE: Emergency COMPLAINT: - ABD PAIN DIAGNOSES: - terminal computer operator (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 - Diarrhea, unspecified - Essential (primary) hypertension - Allergy status to narcotic agent status - Allergy status to penicillin - Noninfective gastroenteritis and colitis, unspecified - Nicotine dependence, unspecified, uncomplicated - 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 10/27/2019 22:50 [facility] TYPE: Emergency COMPLAINT: - NECK PAIN DIAGNOSES: - Allergy status to other drugs, medicaments and biological sub - Other chronic pain - Allergy status to penicillin - Headache - Allergy status to narcotic agent status - 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 - terminal computer operator (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 - Cervicalgia - Allergy status to other antibiotic agents status - Personal history of nicotine dependence - Essential (primary) hypertension 10/04/2019 12:04 [facility] [place] TYPE: Emergency COMPLAINT: - POSSIBLE DEHYDRATION,DIARHEA DIAGNOSES: - Other detention (current) drug therapy - Allergy status to other drugs, medicaments and biological sub - Diarrhea, unspecified - Allergy status to penicillin - terminal computer operator (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 - Allergy status to narcotic agent status - Noninfective gastroenteritis and colitis, unspecified - Essential (primary) hypertension - Allergy status to other antibiotic agents status 09/19/2019 12:02 [facility] [place] TYPE: Emergency COMPLAINT: - ABD PAIN, VOMITING DIAGNOSES: - Other detention (current) drug therapy - Allergy status to penicillin - FDC (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 - Pure hypercholesterolemia, [...] sub - Allergy status to penicillin - FDC (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 - Strain of unspecified muscle, fascia and tendon at shoulder a - Other detention (current) drug therapy - [...] NAUSOUS DIAGNOSES: - Pure hypercholesterolemia, unspecified - FDC (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 - Other detention (current) drug therapy - Allergy status to penicillin - Personal history of nicotine dependence - Essential (primary) hypertension - Allergy status to narcotic agent status - Dizziness and giddiness - Irritable bowel syndrome without diarrhea - Allergy status to other antibiotic agents status Plus 5 More Visits INPATIENT VISIT TRACKING (12 MO.) No inpatient visits to display in this time frame [email or web address]
--- NOTE | 2020-06-17 16:31 | EKG ---
[facility] [address] [place] [address] Signed Normal sinus rhythm Normal ECG When compared with ECG of 27-OCT-2019 22:58, Sinus rhythm has replaced Electronic atrial pacemaker Confirmed by NATALEE CEJA MD ([id number]) on 06/17/2020 4:31:24 PM Electronically Signed By: NATALEE CEJA MD 06/17/20 1631 PATIENT NAME: PINA GAY SARAH Electrocardiogram DATE OF : 58 PHYSICIAN: NATALEE CEJA MD REPORT #: [id number] REPORT IS CONFIDENTIAL AND NOT TO BE RELEASED WITHOUT AUTHORIZATION
== END 2020-06-15 23:00 | disposition home or self-care (01) ==
LOC: ED 21:47
DX: R07.9 Chest pain, unspecified (principal); I10 Essential (primary) hypertension; Z88.0 Allergy status to penicillin; Z88.5 Allergy status to narcotic agent; Z88.8 Allergy status to other drugs, medicaments and biological substances; Z88.1 Allergy status to other antibiotic agents; Z79.899 Other long term (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; Z79.82 Long term (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
CPT/HCPCS: 71045; 80053; 83735; 84484; 85025; 93005; 93010; 96374; 96375; 99285-25; J1170; J2405

== ENCOUNTER 2020-08-06 21:28 | Emergency (ER) | payer MEDICARE ==
[~2020-08-06] VITALS: Ht 193 cm; Wt 123.1 kg
--- OUTSIDE RECORDS SUMMARY | ~2020-08-06 | XMS | Encounter Summary ---
Demographics + + + | Address | [address] | | | [place] [address] | + + + | Home Phone [...] + + + | Author | [facility] | | | and [place] | + + + | Organization | [facility] | | | and [place] | + + + | Address | Unknown | + + + | Phone | Unavailable | + + + Support + + +---------+ + | Name | Relationship | Address | Phone | + + +---------+ + | Chao Madrigal | ECON | Unknown | | + + +---------+ + Care Team Providers + +------+ + | Care Associate Store Leader Name | Role | Phone | + +------+ + | Kirk French MD | PCP | | + +------+ + Reason for Visit +--------+--------+ + | Reason | Onset | Comments | | | Date | | +--------+--------+ + | Other | 06/06/ | Cardiac Clearance | | | 2019 | | +--------+--------+ + Encounter Details +--------+ + + + + | Date | Type | Department | Care Team | Description | +--------+ + + + + | 06/06/ | Telephone | [facility] | [place], | Other (Cardiac | | 2018 | | CARDIOLOGY [address] | Janeen, HEAT TRANSFER TECHNICIAN [address] | Clearance) | | | | [place], | [place], | | | | | [place] [address] | [place] [address] | | | | | [phone] | [phone] | | | | | | | [...] this encounter Miscellaneous Notes Telephone Encounter - Magi Farr RN - 06/14/2019 8:53 AM FRANCYChart note faxed to [phone], arlette Galeas. ...........................................Magi Farr RN on 0 06/14/19 at 8:53 Mariana Mendiola RN - 06/09/2019 3:49 PM Sanchez called, patient was seen by Cory MCCAULEY on 06/06/19. They had requested surgery clearance. I informed her that I wo uld consult with Janeen on Wednesday when she returns to the office ........................... ...............Mariana Valentine RN on 06/09/19 at 15:52 elephone Kasie Crain RN - 06/06/2019 12:36 PM PDTStephenidi from [facility] calls to josh boyce cardiac clearance for this patient scheduled to have Left shoulder total arthroplasty o n 06/13/19. Routing to Janeen as she is seeing patient this afternoon in clinic. Please fax chart note to Gudelia at [phone].............................................Kasie Ashley RN on 06/06/19 at 12:38 documented in this en counter Plan of Treatment +--------+ + + + + | Date | Type | Specialty | Care Team | Description | +--------+ + + + + | 08/21/ | Implant | Cardiology | Daljit Singletary, | Remote Device | | 2019 | Monitor | | [address] | Interrogation | | | | | [place], | (Primary Dx); | | | | | [place] [address] | Pacemaker; | | | | | [phone] | Sinoatrial node | | | | | | dysfunction (HCC) | | | | | | with symptomatic | | | | | | bradycardia | +--------+ + + + + | 08/21/ | Implant | Cardiology | Daljit Singletary, | Remote Device | | 2019 | Monitor | | MD [address] [facility] | Interrogation | | | | | [place], | (Primary Dx); | | | | | [place] [address] | Pacemaker; | | | | | [phone] | Sinoatrial node | | | | | | dysfunction ([facility]) | | | | | | with symptomatic | | | | | | bradycardia | +--------+ + + + + | 08/21/ | Implant | Cardiology | Daljit Singletary, | Remote Device | | 2019 | Monitor | | MD [address] | Interrogation | | | | | [place], | (Primary Dx); | | | | | [place] [address] | Pacemaker; | | | | | [phone] | Sinoatrial node | | | | | | dysfunction ([facility]) | | | | | | with symptomatic | | | | | | bradycardia | +--------+ + + + + | 08/21/ | Implant | Cardiology | Gemini Rashadotto, | Remote Device | | 2019 | Monitor | | MD [address] | Interrogation | | | | | [place], | (Primary Dx); | | | | | [place] [address] | Pacemaker; | | | | | [phone] | Sinoatrial node | | | | | | dysfunction (HCC) | | | | | | with symptomatic | | | | | | bradycardia | +--------+ + + + + | 08/21/ | Implant | Cardiology | Daljit Singletary, | Remote Device | | 2019 | Monitor | | MD [address] | Interrogation | | | | | [place], | (Primary Dx); | | | | | [place] [address] | Pacemaker; | | | | | [phone] | Sinoatrial node | | | | | | dysfunction (HCC) | | | | | | with symptomatic | | | | | | bradycardia | +--------+ + + + + | 10/23/ | Procedure | Cardiology | | | | 2019 | visit | | | | +--------+ + + + + | 10/23/ | Office | Cardiology | [place], | | | 2020 | Visit | | PARISA [place] [address] | | | | | | [place], | | | | | | [place] [address] | | | | | | [phone] | | | | | | | | +--------+ + + + + documented as of this encounter Visit Diagnoses Not on filedocumented in this encounter"
--- OUTSIDE RECORDS SUMMARY | ~2020-08-06 | XMS | Encounter Summary ---
Demographics + + + | Address | [address] | | | [place] [address] | + + + | Home Phone | | + + + | Preferred Language | Unknown | + + + | Marital Status | | + + + | Mormonism Affiliation | 1013 | + + + | Race | White | + + + | Ethnic Group | Not or | + + + Author + + + | Author | [facility] | | | and [place] | + + + | Organization | [facility] | | | [...] Team Providers + +------+ + | Care Auto Parts Clerk Name | Role | Phone | + +------+ + | Michael Amanda DO | PCP | | + +------+ + Reason for Visit + + + | Reason | Comments | + + + | Follow-up | Three month with Stress 12/06/13 | + + + | Hypertension | | + + + Encounter Details +--------+---------+ + + + | Date | Type | Department | Care Team | Description | +--------+---------+ + + + | 12/21/ | Office | [facility] [place] | [place], | Chest pain (Primary | | 2013 | Visit | CARDIOLOGY [address] | [address] | Dx); Symptomatic | | | | [place], | [place], | PVCs; | | | | [place] [address] | [place] [address] | Hyperlipidemia; | | | | [phone] | [phone] | Hypertension; | | | | | | Coronary artery | | | | | | disease | +--------+---------+ + + + Social History [...] + + + | Blood Pressure | 120/82 | 12/21/2013 2:05 PM | Right | | | | PST | | + + + + + | Pulse | 72 | 12/21/2013 2:05 PM | Regular | | | | PST | | + + + + + | Temperature | - | - | | + + + + + | Respiratory Rate | 20 | 12/21/2013 2:05 PM | | | | | PST | | + + + + + | Oxygen Saturation | - | - | | + + + + + | Inhaled Oxygen | - | - | | | Concentration | | | | + + + + + | Weight | 117.5 kg (259 lb) | 12/21/2013 2:05 PM | | | | | PST | | + + + + + | Height | 193 cm (6' 4") | 12/21/2013 2:05 PM | | | | | PST | | + + + + + | Body Mass Index | 31.53 | 12/21/2013 2:05 PM | | | | | PST | | + + + + + documented in this encounter Progress Notes Janeen Ramirez ARNP - 12/21/2013 2:13 PM PSTFormatting of this note might be different f rom the original. CARDIOLOGY OFFICE VISIT Date of Service: 12/21/2013 PATIENT: Moe Sanchez is a 53 y.o. male. PCP: DO EMA Chapa Moe Sanchez is a 53 y.o. 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 He is being seen today for follow up PVC's and chest pain. He was last seen 09/06/2013 at which time he was to continue same therapeutic medical regim en and follow up in 3 months. Patient started having more PVCs and chest pain. Patient is awaiting with evaluation ongoing at this time to see a specialist in [place] and he was to follow up with the stresses test ordered due to chest pain. Since that time, patient has con tinued having occasional palpitations, however, they have improved over the last couple week s. He was diagnosed with anxiety and he was prescribed Xanax which has helped with his anxi ety episodes. He denies having any chest pain recently or increase shortness of breath at r est or on exertion. He has not been exercising much because of his back issues but overall he has not felt any chest pain lately. He denies lightheadedness, dizziness, palpitations, o r leg swelling. MEDICAL, SURGICAL, AND PERSONAL HISTORY Past Medical, [...] Hypoglycemia Symptomatic PVCs Tachycardia Preventative health care CURRENT MEDICATIONS Outpatient Encounter Prescriptions as of 12/21/2013 Medication Sig Dispense Refill Ascorbic Acid (VITAMIN [...] MOUTH EVERY DAY 30 table t 5 [place]-3 Fatty Acids (SALMON OIL-1000 PO) CAPS, one [...] ROS Review of Systems Constitutional: Positive for fatigue. Negative for unexpected weight change. Respiratory: Negative for chest tightness and shortness of breath (not usually, only during PVC episode). Cardiovascular: Positive for chest pain and palpitations. Negative for leg swelling. Gastrointestinal: Negative for abdominal pain. Neurological: Positive for light-headedness. Negative for syncope. OBJECTIVE: Physical Exam Constitutional: He is oriented to person, place, and time. He appears well-developed and we ll-nourished. Adult male in no acute distress Neck: No hepatojugular reflux and no JVD present. Carotid bruit is not present. Cardiovascular: Normal rate, regular rhythm, S1 normal, S2 normal and intact distal pulses. Extrasystoles are present. PMI is not displaced. Exam reveals no gallop, no S3, no S4, n o distant heart sounds and no friction rub. Murmur heard. Systolic (holosystolic) murmur is present with a grade of 1/6 Pulses: Carotid pulses are 1+ on the right side, and 1+ on the left side. Posterior tibial pulses are 1+ on the right side, and 1+ on the left side. Pulmonary/Chest: Effort normal and breath sounds normal. No accessory muscle usage. No resp iratory distress. He has no decreased breath sounds. He has no wheezes. He has no rhonchi. H e has no rales. Abdominal: Soft. Normal aorta and bowel sounds are normal. He exhibits no abdominal bruit a nd no pulsatile midline mass. There is no tenderness. Musculoskeletal: He exhibits no edema. Neurological: He is alert and oriented to person, place, and time. Skin: Skin is warm, dry and intact. No cyanosis. Nails show no clubbing. Psychiatric: He has a normal mood and affect. His mood appears not anxious. He does not exh ibit a depressed mood. BP 120/82 | Pulse 72 | Resp 20 | Ht 1.93 m (6' 4") | Wt 117.482 kg (259 lb) | BMI 31.53 kg/ m2 ECG: none in this visit LAB RESULTS: LIPID Lab Results Component Value Date TRIG 88 05/27/2012 HDL 42 05/27/2012 CHEMISTRY Lab Results Component Value Date GLU 80 08/08/2013 NA 151 08/08/2013 K 4.4 08/08/2013 CL 115 08/08/2013 CO2 29 08/08/2013 CALCIUM 9.1 08/08/2013 ALKPHOS 63 08/08/2013 AST 26 12/12/2012 ALT 22 12/12/2012 BILITOT 0.5 08/08/2013 CREA 0.75 04/03/2013 BUN 15 08/08/2013 EGFR >60 04/03/2013 HEMATOLOGY Lab Results Component Value Date WBC 4.5 04/03/2013 HGB 15.3 04/03/2013 HCT 43.5 04/03/2013 PLT 141* 04/03/2013 I personally reviewed records from another healthcare provider. ASSESSMENT: 1. Symptomatic PVC's status post ablation: A. 48-hour [...] to go back in 3 days to [place] for an attempt of ablation under general [...] of the transmissions. E. Today, patient reports an episode of palpitations occasional but no further episodes of angina over the last couple of weeks. He is in class II of [place] [employer] funct ional class. There are no signs or symptoms of overt congestive heart failure. There is no fluid retention on physical examination. Patient continues on diltiazem and metoprolol, and at this point as he had a recurrent episode couple of weeks ago will continue him on both o f these medications. 2. Chest pain with abnormal stress test for possible coronary artery disease: A. Normal exercise sestamibi stress test on 05/25/09. LVEF by gated SPECT was 53 %. B. Echocardiogram from 12/30/12 shows a Mild [...] attenuation cannot completely be ruled out. D. Patient denies having any recent episodes of angina within the last week that he had ep isodes before then. In the presence of the abnormal stress test further evaluation is feliciano león with angiogram to further stratify coronary artery disease. The risks and benefits of t he procedure including alternative treatment were discussed with the patient in length. The patient decides to proceed with the procedure. 3. Profound bradycardia associated with dizziness, lightheadedness, [...] cigarette smoking. 7. Bipolar disease with anxiety/depression Plan: 1. Schedule patient for left heart catheterization. Patient has good radial pulses and ul aleksey pulses with adequate vascularization which makes him a candidate for radial approach. T his will be decided by Dr. Brasher the day of the procedure. The risks and benefits of the proc edure including alternative treatment were discussed with the patient in length. The patient decides to proceed with the procedure. 2. Follow up appointment in 2 weeks to discuss results or sooner if any concerns. Nitrogly cerin sublingual tablets prescription has been given to patient in case of further angina. Portions of this report were transcribed using voice recognition software. Every effort wa s made to ensure accuracy; however, inadvertent computerized dentures lab technician errors may be pre sent. documented in this encounter Plan of Treatment +--------+ + + + + | Date | Type | Specialty | Care Team | Description | +--------+ + + + + | 08/21/ | Implant | Cardiology | Daljit Singletary, | Remote Device | | 2019 | Monitor | | [address] [place] | Interrogation | | | | | [place], | (Primary Dx); | | | | | [place] [address] | Pacemaker; | | | | | [phone] | Sinoatrial node | | | | | | dysfunction (HCC) | | | | | | with symptomatic | | | | | | bradycardia | +--------+ + + + + | 08/21/ | Implant | Cardiology | Daljit Singletary, | Remote Device | | 2019 | Monitor | | MD [address] [place] | Interrogation | | | | | [place], | (Primary Dx); | | | | | [place] [address] | Pacemaker; | | | | | [phone] | Sinoatrial node | | | | | | dysfunction (HCC) | | | | | | with symptomatic | | | | | | bradycardia | +--------+ + + + + | 08/21/ | Implant | Cardiology | Daljit Singletary, | Remote Device | | 2020 | Monitor | | MD [address] [place] | Interrogation | | | | | [place], | (Primary Dx); | | | | | [place] [address] | Pacemaker; | | | | | [phone] | Sinoatrial node | | | | | | dysfunction (HCC) | | | | | | with symptomatic | | | | | | bradycardia | +--------+ + + + + | 08/21/ | Implant | Cardiology | Daljit Singletary | Remote Device | | 2019 | Monitor | | MD [address] [place] | Interrogation | | | | | [place], | (Primary Dx); | | | | | [place] [address] | Pacemaker; | | | | | [phone] | Sinoatrial node | | | | | | dysfunction (HCC) | | | | | | with symptomatic | | | | | | bradycardia | +--------+ + + + + | 08/21/ | Implant | Cardiology | Daljit Singletary, | Remote Device | | 2020 | Monitor | | MD [address] [place] | Interrogation | | | | | [place], | (Primary Dx); | | | | | [place] [address] | Pacemaker; | | | | | [phone] | Sinoatrial node | | | | [...] W | | | | | | [place], | | | | | | [place] [address] | | | | | | [phone] | | | | | | | | +--------+ + + + + documented as of this encounter Visit Diagnoses + + | Diagnosis | + + | Chest pain - Primary Chest pain, unspecified | + + | Symptomatic PVCs Other premature beats | + + | Hyperlipidemia Other and unspecified hyperlipidemia | + + | Hypertension Unspecified essential hypertension | + + | Coronary artery disease Coronary atherosclerosis of unspecified type of vessel, | | [place] or graft | + + | Remote Device Interrogation - Primary Fitting and adjustment of cardiac pacemaker | + + | Pacemaker Cardiac pacemaker in situ | + + | Sinoatrial node dysfunction (HCC) with symptomatic bradycardia Sinoatrial node | | dysfunction | + + | Remote Device Interrogation - Primary Fitting and adjustment of cardiac pacemaker | + + | Pacemaker Cardiac pacemaker in situ | + + | Sinoatrial node dysfunction (HCC) with symptomatic bradycardia Sinoatrial node | | dysfunction | + + | Remote Device Interrogation - Primary Fitting and adjustment of cardiac pacemaker | + + | Pacemaker Cardiac pacemaker in situ | + + | Sinoatrial node dysfunction (HCC) with symptomatic bradycardia Sinoatrial node | | dysfunction | + + | Remote Device Interrogation - Primary Fitting and adjustment of cardiac pacemaker | + + | Pacemaker Cardiac pacemaker in situ | + + | Sinoatrial node dysfunction (HCC) with symptomatic bradycardia Sinoatrial node | | dysfunction | + + | Remote Device Interrogation - Primary Fitting and adjustment of cardiac pacemaker | + + | Pacemaker Cardiac pacemaker in situ | + + | Sinoatrial node dysfunction (HCC) with symptomatic bradycardia Sinoatrial node | | dysfunction | + + documented in this encounter
--- OUTSIDE RECORDS SUMMARY | ~2020-08-06 | XMS | Encounter Summary ---
Demographics + + + | Address | [address] | | | [place] [address] | + + + | Home Phone | | + + + | Preferred Language | Unknown | + + + | Marital Status | | + + + | Tenriism Affiliation | 1013 | + + + | Race | White | + + + | Ethnic Group | Not or | + + + Author + + + | Author | [facility] | | | and [place] | + + + | Organization | [facility] | | [...] Team Providers + +------+ + | Care Visitor Service Assistant Name | Role | Phone | + +------+ + | Kirk French MD | PCP | | + +------+ + Encounter Details +--------+ + + + + | Date | Type | Department | Care Team | Description | +--------+ + + + + | 07/18/ | Abstract | [facility] [place] | [place], | | | 2020 | | CARDIOLOGY [address] | [address] | | | | | [place], | [place], | | | | | [place] [address] | [place] [address] | | | | | [phone] | [phone] | | | | | | | [...] | 2020 | Monitor | | [address] [facility] | Interrogation | | | | | [place], | (Primary Dx); | | | | | [place] [address] | Pacemaker; | | | | | [phone] | Sinoatrial node | | | | | | dysfunction (HCC) | | | | | | with symptomatic | | | | | | bradycardia | +--------+ + + + + | 08/21/ | Implant | Cardiology | Daljit Singletary, | Remote Device | | 2019 | Monitor | | MD [address] [place] | Interrogation | | | | | [place], | (Primary Dx); | | | | | [place] [address] | Pacemaker; | | | | | [phone] | Sinoatrial node | | | | | | dysfunction (HCC) | | | | | | with symptomatic | | | | | | bradycardia | +--------+ + + + + | 08/21/ | Implant | Cardiology | Daljit Singletary, | Remote Device | | 2019 | Monitor | | MD [address] [place] | Interrogation | | | | | [place], | (Primary Dx); | | | | | [place] [address] | Pacemaker; | | | | | [phone] | Sinoatrial node | | | | | | dysfunction ([facility]) | | | | | | with symptomatic | | | | | | bradycardia | +--------+ + + + + | 08/21/ | Implant | Cardiology | Daljit Singletary, | Remote Device | | 2019 | Monitor | | MD [address] [place] | Interrogation | | | | | [place], | (Primary Dx); | | | | | [place] [address] | Pacemaker; | | | | | [phone] | Sinoatrial node | | | | | | dysfunction (HCC) | | | | | | with symptomatic | | | | | | bradycardia | +--------+ + + + + | 08/21/ | Implant | Cardiology | Daljit Singletary, | Remote Device | 2019 | Monitor | | [address] [place] | Interrogation | | | | | [place], | (Primary Dx); | | | | | [place] [address] | Pacemaker; | | | | | [phone] | Sinoatrial node | | | | [...] W | | | | | | [place], | | | | | | [place] [address] | | | | | | [phone] | | | | | | | | +--------+ + + + + documented as of this encounter Procedures + +--------+ + + + | Procedure Name | Priori | Date/Time | Associated Diagnosis | Comments | | | ty | | | | + +--------+ + + + | EXTERNAL LAB: | Routin | 07/11/2020 | | Results for this | | TRIGLYCERIDES | e | | | procedure are in the | | | | | | results section. | + +--------+ + + + | EXTERNAL LAB: | Routin | 07/11/2020 | | Results for this | | CHOLESTEROL, HDL | e | | | procedure are in the | | | | | | results section. | + +--------+ + + + | EXTERNAL LAB: | Routin | 07/11/2020 | | Results for this | | CHOLESTEROL, TOTAL | e | | | procedure are in the | | | | | | results section. | + +--------+ + + + | EXTERNAL LAB: | Routin | 07/11/2020 | | Results for this | | CHOLESTEROL, LDL | e | | | procedure are in the | | | | | | results section. | + +--------+ + + + | LIPID PANEL | Routin | 07/11/2020 | | Results for this | | | e | | | procedure are in the | | | | | | results section. | + +--------+ + + + documented in this encounter Results Lipid Panel (07/11/2020) + +---------+ + + + | Component | Value | Ref Range | Performed | Pathologist | | | | | At | Signature | + +---------+ + + + | VLDL | 28 | 4 - 40 | | | | Cholesterol | | | | | | Santi | | | | | + +---------+ + + + | Chol/HDL | 3.7 (A) | 5.0 | | | | Ratio | | | | | + +---------+ + + + | Non-HDL | 103 (A) | 130 | | | | Cholesterol | | | | | + +---------+ + + + + + | Specimen | + + | Blood | + + External Lab: Triglycerides (07/11/2020) + +-------+ + + + | Component | Value | Ref Range | Performed | Pathologist | | | | | At | Signature | + +-------+ + + + | Triglycerid | 139 | 30 - 150 | EXTERNAL | | | es, | | | LAB | | | External | | | | | + +-------+ + + + + + | Specimen | + + | Blood | + + + +---------+ + + | Performing | Address | City/State/Zipcode | Phone Number | | Organization | | | | + +---------+ + + | EXTERNAL LAB | | | | + +---------+ + + External Lab: Cholesterol, HDL (07/11/2020) + +-------+ + + + | Component | Value | Ref Range | Performed | Pathologist | | | | | At | Signature | + +-------+ + + + | HDL | 38.6 | 40 mg/dl | EXTERNAL | | | Cholesterol | | | LAB | | | , External | | | | | + +-------+ + + + + + | Specimen | + + | Blood | + + + +---------+ + + | Performing | Address | City/State/Zipcode | Phone Number | | Organization | | | | + +---------+ + + | EXTERNAL LAB | | | | + +---------+ + + External Lab: Cholesterol, Total (07/11/2020) + +---------+ + + + | Component | Value | Ref Range | Performed | Pathologist | | | | | At | Signature | + +---------+ + + + | Cholesterol | 142 (A) | 200 mg/dl | EXTERNAL | | | , Total, | | | LAB | | | External | | | | | + +---------+ + + + + + | Specimen | + + | Blood | + + + +---------+ + + | Performing | Address | City/State/Zipcode | Phone Number | | Organization | | | | + +---------+ + + | EXTERNAL LAB | | | | + +---------+ + + External Lab: Cholesterol, LDL (07/11/2020) + +--------+ + + + | Component | Value | Ref Range | Performed | Pathologist | | | | | At | Signature | + +--------+ + + + | LDL | 76 (A) | 100 | EXTERNAL | | | Cholesterol | | | LAB | | | , Direct, | | | | | | External | | | | | + +--------+ + + + + + | Specimen | + + | Blood | + + + +---------+ + + | Performing | Address | City/State/Zipcode | Phone Number | | Organization | | | | + +---------+ + + | EXTERNAL LAB | | | | + +---------+ + + documented in this encounter Visit Diagnoses Not on filedocumented in this encounter"
--- OUTSIDE RECORDS SUMMARY | ~2020-08-06 | XMS | Encounter Summary ---
Demographics + + + | Address | [address] | | | [place] [address] | + + + | Home Phone | | + + + | Preferred Language | Unknown | + + + | Marital Status | | + + + | Anabaptist Affiliation | 1013 | + + + | Race | White | + + + | Ethnic Group | Not or | + + + Author + + + | Author | [facility] | | | and [place] | + + + | Organization | [facility] | | | [...] Team Providers + +------+ + | Care Crude Oil Treater Name | Role | Phone | + +------+ + | Kirk French MD | PCP | | + +------+ + Reason for Visit + +--------+ + | Reason | Onset | Comments | | | Date | | + +--------+ + | Medication Refill | 08/31/ | | | | 2019 | | + +--------+ + Encounter Details +--------+--------+ + + + | Date | Type | Department | Care Team | Description | +--------+--------+ + + + | 08/31/ | Refill | [facility] | Kirk French | Medication Refill | | 2018 | | [facility] | MD [address] | | | | | [address] | | | | | [address] | [place] [address] | | | | | [place], [place] | [phone] | | | | | [address] | | | | | | [phone] | | | +--------+--------+ + + + [...] this encounter Miscellaneous Notes Telephone Encounter - Kirk French MD - 08/31/2019 4:02 PM PDTOk to rf but also n eeds psych referral for anxiety. I am NOT comfortable with such amounts of tranquilizers.Shanell ctronically signed by Kirk French MD at 08/31/2019 4:02 PM PDTdocumented in this e ncounter Plan of Treatment +--------+ + + + + | Date | Type | Specialty | Care Team | Description | +--------+ + + + + | 08/21/ | Implant | Cardiology | Daljit Singletary, | Remote Device | | 2019 | Monitor | | MD [address] [place] | Interrogation | | | | | [place], | (Primary Dx); | | | | | [place] [address] | Pacemaker; | | | | | [phone] | Sinoatrial node | | | | | | dysfunction (HCC) | | | | | | with symptomatic | | | | | | bradycardia | +--------+ + + + + | 08/21/ | Implant | Cardiology | Daljit Singletary, | Remote Device | | 2019 | Monitor | | MD [address] [place] | Interrogation | | | | | [place], | (Primary Dx); | | | | | [place] [address] | Pacemaker; | | | | | [phone] | Sinoatrial node | | | | | | dysfunction (HCC) | | | | | | with symptomatic | | | | | | bradycardia | +--------+ + + + + | 08/21/ | Implant | Cardiology | Daljit Singletary, | Remote Device | | 2019 | Monitor | | MD [address] [place] | Interrogation | | | | | [place], | (Primary Dx); | | | | | [place] [address] | Pacemaker; | | | | | [phone] | Sinoatrial node | | | | | | dysfunction (HCC) | | | | | | with symptomatic | | | | | | bradycardia | +--------+ + + + + | 08/21/ | Implant | Cardiology | Daljit Singletary, | Remote Device | | 2019 | Monitor | | MD [address] | Interrogation | | | | | [place], | (Primary Dx); | | | | | [place] [address] | Pacemaker; | | | | | [phone] | Sinoatrial node | | | | | | dysfunction (HCC) | | | | | | with symptomatic | | | | | | bradycardia | +--------+ + + + + | 08/21/ | Implant | Cardiology | Daljit Singletary, | Remote Device | | 2019 | Monitor | | MD [address] [place] | Interrogation | | | | | [place], | (Primary Dx); | | | | | [place] [address] | Pacemaker; | | | | | [phone] | Sinoatrial node | | | | [...] [place], | | | | | | [place] [address] | | | | | | [phone] | | | | | | | | +--------+ + + + + documented as of this encounter Visit Diagnoses Not on filedocumented in this encounter"
--- OUTSIDE RECORDS SUMMARY | ~2020-08-06 | XMS | Encounter Summary ---
Demographics + + + | Address | [address] | | | [place] [address] | + + + | Home Phone [...] Team Providers + +------+ + | Care Furnace Erector Name | Role | Phone | + +------+ + | Kirk French MD | PCP | | + +------+ + Reason for Visit +--------+--------+ + | Reason | Onset | Comments | | | Date | | +--------+--------+ + | Other | 03/21/ | | | | 2019 | | +--------+--------+ + Encounter Details +--------+ + + + + | Date | Type | Department | Care Team | Description | +--------+ + + + + | 03/21/ | Telephone | [facility] | Emmanuel Daniel MD | Other | | 2019 | | GASTROENTEROLOGY | [address], [place] | | | | | [address] [place] | [address] [place], [place] | | | | | [address] [place], [place] | [address] | | | | | [address] | | | | | | [phone] | | | +--------+ + + + [...] this encounter Miscellaneous Notes Telephone Encounter - Kaylynn Copeland RN - 03/22/2019 8:21 AM PDTLeft message for lala carlos that I spoke with Dr. Daniel yesterday. We see a referral to [facility] that was submitted e arsah this year. Dr. Daniel felt we could submitted another one if they haven't contacting you yet. Dr. Daniel wants to make sure he is using his medications. elephone Encounter - Monica Kenny - 03/21/2019 11:02 AM PDTPatient called in with concerns of how bad his IBS is; he said yester day was really bad. He also is upset about how it's been 3 weeks since we said we were mary guevara on a referral to [facility] and it shouldn't take this long, meanwhile he is just over here suf perry. He would like to talk to Darryn to discuss. Thank you documented in this encounter Plan of Treatment +--------+ + + + + | Date | Type | Specialty | Care Team | Description | +--------+ + + + + | 08/21/ | Implant | Cardiology | Daljit Singletary, | Remote Device | | 2019 | Monitor | | MD Chiquis [address]auffman[address] | Interrogation | | | | | [place], | (Primary Dx); | | | | | [place] [address] | Pacemaker; | | | | | [phone] | Sinoatrial node | | | | | | dysfunction (HCC) | | | | | | with symptomatic | | | | | | bradycardia | +--------+ + + + + | 08/21/ | Implant | Cardiology | Daljit Singletary, | Remote Device | | 2019 | Monitor | | [address] | Interrogation | | | | | [place], | (Primary Dx); | | | | | [place] [address] | Pacemaker; | | | | | [phone] | Sinoatrial node | | | | | | dysfunction (HCC) | | | | | | with symptomatic | | | | | | bradycardia | +--------+ + + + + | 08/21/ | Implant | Cardiology | Daljit Singletary, | Remote Device | | 2019 | Monitor | | MD [address] | Interrogation | | | | | [place], | (Primary Dx); | | | | | [place] [address] | Pacemaker; | | | | | [phone] | Sinoatrial node | | | | | | dysfunction (HCC) | | | | | | with symptomatic | | | | | | bradycardia | +--------+ + + + + | 08/21/ | Implant | Cardiology | Daljit Singletary, | Remote Device | | 2019 | Monitor | | MD [address] | Interrogation | | | | | [place], | (Primary Dx); | | | | | [place] [address] | Pacemaker; | | | | | [phone] | Sinoatrial node | | | | | | dysfunction (HCC) | | | | | | with symptomatic | | | | | | bradycardia | +--------+ + + + + | 08/21/ | Implant | Cardiology | Daljit Singletary, | Remote Device | | 2019 | Monitor | | [address] | Interrogation | | | | | [place], | (Primary Dx); | | | | | [place] [address] | Pacemaker; | | | | | [phone] | Sinoatrial node | | | | | | dysfunction ([facility]) | | | | | [...] [address] [place], | | | | | | [place] [address] | | | | | | [phone] | | | | | | | | +--------+ + + + + documented as of this encounter Visit Diagnoses + + | Diagnosis | + + | Incontinence of feces, unspecified fecal incontinence type - Primary | + + | Diarrhea, unspecified type | + + | Remote Device Interrogation [...]
--- OUTSIDE RECORDS SUMMARY | ~2020-08-06 | XMS | Encounter Summary ---
Demographics + + + | Address | [address] | | | [place] [address] | + + + | Home Phone [...] Team Providers + +------+ + | Care Food Service Aide Name | Role | Phone | + +------+ + | Kirk French MD | PCP | | + +------+ + Reason for Visit +--------+--------+ + | Reason | Onset | Comments | | | Date | | +--------+--------+ + | Other | 01/20/ | | | | 2019 | | +--------+--------+ + Encounter Details +--------+ + + + + | Date | Type | Department | Care Team | Description | +--------+ + + + + | 01/20/ | Telephone | [facility] | Silvia, | Other | | 2019 | | CARDIOLOGY [address] | [address] [place] [address] | | | | | [place], | [place], | | | | | [place] [address] | [place] [address] | | | | | [phone] | [phone] | | | | | | | [...] this encounter Miscellaneous Notes Telephone Encounter - Dileep Negrete RN - 01/24/2019 12:37 PM PSTSpoke to patient and he states he is having continuous chest pain. It does not radiate at all. He states he did stop smoking cigars and wanted Janeen to know. He will keep his heart cath appointment juhi cortés and call us with any further questions. elephone Encounter - Dileep Negrete RN - 01/20/2019 11:07 A M PSTPatient left a VM stating he wanted a call back. When call returned patient was unavail able. Message left for call back. Electronically signed by Dileep Negrete RN at 019 11:08 AM PSTdocumented in this encounter Plan of Treatment +--------+ + + + + | Date | Type | Specialty | Care Team | Description | +--------+ + + + + | 08/21/ | Implant | Cardiology | Daljit Singletary, | Remote Device | | 2019 | Monitor | | MD [address] | Interrogation | | | | | [place], | (Primary Dx); | | | | | [place] [address] | Pacemaker; | | | | | [phone] | Sinoatrial node | | | | | | dysfunction (HCC) | | | | | | with symptomatic | | | | | | bradycardia | +--------+ + + + + | 08/21/ | Implant | Cardiology | Daljit Singletary, | Remote Device | | 2019 | Monitor | | MD [address] | Interrogation | | | | | [place], | (Primary Dx); | | | | | [place] [address] | Pacemaker; | | | | | [phone] | Sinoatrial node | | | | | | dysfunction (HCC) | | | | | | with symptomatic | | | | | | bradycardia | +--------+ + + + + | 08/21/ | Implant | Cardiology | Daljit Singletary, | Remote Device | | 2019 | Monitor | | MD [address] | Interrogation | | | | | [place], | (Primary Dx); | | | | | [place] [address] | Pacemaker; | | | | | [phone] | Sinoatrial node | | | | | | dysfunction (HCC) | | | | | | with symptomatic | | | | | | bradycardia | +--------+ + + + + | 08/21/ | Implant | Cardiology | Daljit Singletary, | Remote Device | | 2019 | Monitor | | MD [address] | Interrogation | | | | | [place], | (Primary Dx); | | | | | [place] [address] | Pacemaker; | | | | | [phone] | Sinoatrial node | | | | | | dysfunction (HCC) | | | | | | with symptomatic | | | | | | bradycardia | +--------+ + + + + | 08/21/ | Implant | Cardiology | Daljit Singletary, | Remote Device | | 2019 | Monitor | | MD [address] | Interrogation | | | | | [place], | (Primary Dx); | | | | | [place] [address] | Pacemaker; | | | | | [phone] | Sinoatrial node | | | | [...] [place], | | | | | | [place] [address] | | | | | | [phone] | | | | | | | | +--------+ + + + + documented as of this encounter Visit Diagnoses Not on filedocumented in this encounter"
--- OUTSIDE RECORDS SUMMARY | ~2020-08-06 | XMS | Encounter Summary ---
Demographics + + + | Address | [address] | | | [place] [address] | + + + | Home Phone | | + + + | Preferred Language | Unknown | + + + | Marital Status | | + + + | Amish Affiliation | 1013 | + + + | Race | White | + + + | Ethnic Group | Not or | + + + Author + + + | Author | [facility] | | | and [place] | + + + | Organization | [facility] | | [...] Team Providers + +------+ + | Care Odd Shoe Examiner Name | Role | Phone | + +------+ + | Kirk French MD | PCP | | + +------+ + Reason for Visit + + + | Reason | Comments | + + + | Follow-up | ekg | + + + Encounter Details +--------+ + + + + | Date | Type | Department | Care Team | Description | +--------+ + + + + | 06/29/ | Clinical | [facility] [place] | Daljit Singletary, | Symptomatic PVCs | | 2018 | Support | CARDIOLOGY [address] | (Primary Dx); | | | | [place], | [place], | Tachycardia; | | | | [place] [address] | [place] [address] | Coronary artery | | | | [phone] | [phone] | disease involving | | | | | | [place] coronary | | | | | | artery of [place] | | | | | | heart without angina | | | | | | pectoris; | | | | | | Hypertension, | | | | | | unspecified type | +--------+ + + + + Social [...] Dx); | | | | | [place] [address] | Pacemaker; | | | | | [phone] | Sinoatrial node | | | | | | dysfunction (HCC) | | | | | | with symptomatic | | | | | | bradycardia | +--------+ + + + + | 08/21/ | Implant | Cardiology | Daljit Singletary, | Remote Device | | 2019 | Monitor | | MD [address] | Interrogation | | | | | [place], | (Primary Dx); | | | | | [place] [address] | Pacemaker; | | | | | [phone] | Sinoatrial node | | | | | | dysfunction (HCC) | | | | | | with symptomatic | | | | | | bradycardia | +--------+ + + + + | 08/21/ | Implant | Cardiology | Daljit Singletary, | Remote Device | | 2019 | Monitor | | MD [address] | Interrogation | | | | | [place], | (Primary Dx); | | | | | [place] [address] | Pacemaker; | | | | | [phone] | Sinoatrial node | | | | | | dysfunction (HCC) | | | | | | with symptomatic | | | | | | bradycardia | +--------+ + + + + | 08/21/ | Implant | Cardiology | Daljit Singletary, | Remote Device | | 2020 | Monitor | | MD [address] | Interrogation | | | | | [place], | (Primary Dx); | | | | | [place] [address] | Pacemaker; | | | | | [phone] | Sinoatrial node | | | | | | dysfunction (HCC) | | | | | | with symptomatic | | | | | | bradycardia | +--------+ + + + + | 08/21/ | Implant | Cardiology | Daljit Singletary, | Remote Device | | 2019 | Monitor | | MD [address] | Interrogation | | | | | [place], | (Primary Dx); | | | | | [place] [address] | Pacemaker; | | | | | [phone] | Sinoatrial node | | | | [...] [address] | | | | | | [place], | | | | | | [place] [address] | | | | | | [phone] | | | | | | | | +--------+ + + + + documented as of this encounter Procedures + +--------+ + + + | Procedure Name | Priori | Date/Time | Associated Diagnosis | Comments | | | ty | | | | + +--------+ + + + | ECG 12 LEAD | Routin | 06/29/2018 | Symptomatic PVCs | Results for this | | | e | 9:33 AM | Tachycardia | procedure are in the | | | | PDT | Coronary artery | results section. | | | | | disease involving | | | | | | [place] coronary | | | | | | artery of [place] | | | | | | heart without angina | | | | | | pectoris | | | | | | Hypertension, | | | | | | unspecified type | | + +--------+ + + + documented in this encounter Results ECG 12 lead (06/29/2018 9:33 AM PDT) + + + + + + | Component | Value | Ref Range | Performed | Pathologist | | | | | At | Signature | + + + + + + | VENTRICULAR | 72 | BPM | [facility] | | | RATE EKG | | | | | + + + + + + | ATRIAL RATE | 72 | BPM | [facility] | | + + + + + + | P-R | 250 | ms | [facility] | | | INTERVAL | | | | | + + + + + + | QRS | 114 | ms | [facility] | | | DURATION | | | | | + + + + + + | Q-T | 398 | ms | [facility] | | | INTERVAL | | | | | + + + + + + | Q-T | 435 | ms | [facility] | | | INTERVAL | | | | | | (CORRECTED) | | | | | + + + + + + | P WAVE AXIS | 21 | degrees | [facility] | | + + + + + + | QRS AXIS | 51 | degrees | [facility] | | [...] | | | | | ECG of 27-JUN-2018 | | | | | | 14:06,No significant | | | | | | change was | | | | | | foundConfirmed by | | | | | | DALJIT SINGLETARY MD | | | | | | ([id number]) on 06/29/2018 | | | | | | 1:54:10 PM | | | | + + [...] + | Diagnosis | + + | Symptomatic PVCs - Primary Other premature beats | + + | Tachycardia Tachycardia, unspecified | + + | Coronary artery disease involving [place] coronary artery of [place] heart without | | angina pectoris | + + | Hypertension, unspecified type | + + | Remote [...]
--- OUTSIDE RECORDS SUMMARY | ~2020-08-06 | XMS | Encounter Summary ---
Demographics + + + | Address | [address] | | | [place] [address] | + + + | Home Phone [...] + | Author | [facility] | | | and [place] | + + + | Organization | [facility] | | | and [...] Team Providers + +------+ + | Care Svp Marketing Name | Role | Phone | + +------+ + | Kirk French MD | PCP | | + +------+ + Reason for Visit + + + | Reason | Comments | + + + | Follow-up | | + + + | Blood Pressure Check | | | (Screening) | | + + + Encounter Details +--------+---------+ + + + | Date | Type | Department | Care Team | Description | +--------+---------+ + + + | 09/01/ | Office | [facility] | [place], | Ascending thoracic | | 2015 | Visit | CARDIOLOGY [address] | [place] [address] | aortic aneurysm | | | | [place], | [place], | (HCC) (Primary Dx); | | | | [place] [address] | [place] [address] | Coronary artery | | | | [phone] | [phone] | disease involving | | | | | | [place] coronary | | | | | | artery of [place] | | | | | | heart [...] + + + | Blood Pressure | 138/82 | 09/01/2016 3:44 PM | | | | | PDT | | + + + + + | Pulse | 66 | 09/01/2016 3:44 PM | | | | | PDT | | + + + + + | Temperature | - | - | | + + + + + | Respiratory Rate | 14 | 09/01/2016 3:44 PM | | | | | PDT | | + + + + + | Oxygen Saturation | - | - | | + + + + + | Inhaled Oxygen | - | - | | | Concentration | | | | + + + + + | Weight | 122 kg (269 lb) | 09/01/2016 3:44 PM | | | | | PDT | | + + + + + | Height | 190.5 cm (6' 3") | 09/01/2016 3:44 PM | | | | | PDT | | + + + + + | Body Mass Index | 33.62 | 09/01/2016 3:44 PM | | | | | PDT [...] Instructions Patient Instructions Janeen Ramirez ARNP - 09/01/2016 4:03 PM PDT1. Start Losartan 25 mg once every morning 2. check blood pressure and pulse twice daily for two weeks and return the log to our offic e. 3. Check BMP/lab in 1 week 4. Follow up in December 2016 documented in this encounter Progress Notes Janeen Ramirez ARNP - 09/01/2016 3:38 PM PDTFormatting of this note might be different f rom the original. PATIENT NAME: Moe Sanchez : 1960: AGE: 56 y.o. PRIMARY CARE: Kirk French MD OUTPATIENT FOLLOW UP VISIT Date of Service: 09/01/2016 HISTORY OF PRESENT ILLNESS: Moe Sanchez is a 56 y.o. male with a history of non-critical coronary artery d isease involving [place] coronary artery of [place] heart without angina pectoris, essential h ypertension, symptomatic bradycardia status post Medtronic dual-chamber permanent pacemaker implantation 06/14/09, frequent premature ventricular contractions status post ablation sprin g 2012, and bipolar disorder with anxiety. He is being seen today for follow up coronary ar taylor disease and hypertension. He was last seen 06/23/2016 at which time he was continue same therapeutic medical regimen and follow up in 6 months. Since that time, he came back from his trip in [place]. He has noti melly his blood pressure up to almost 170 mmHg. It has been elevated over the last 5 weeks. He also has gained almost 20 lbs on his trip. He only had one episode of chest pain while n[place] ng [place], so he took some sublingual nitroglycerin and that resolved some of his symptoms. He has not noticed any increase in shortness of breath at rest or on exertion. He has not started his exercise program and he has been more than 2 months without exercising. He radhika granda registered to go to the gym earlier this week so he will start that on Wednesday. He alre navya started cutting back on his portions and he is trying to follow a more balanced healthy diet. MEDICAL, SURGICAL, AND PERSONAL HISTORY Past Medical, [...] Preventative health care Coronary artery disease involving [place] coronary artery of [place] heart without angina pectoris Cannabis abuse, daily [...] Take 25 mg by mouth as needed. doxycycline (MONODOX) 100 mg capsule Take 100 mg by mouth 3 times daily. dronabinol (MARINOL) 10 MG capsule Take 10 mg by mouth 2 times daily (before meals). MELATONIN TABS, at bedtime as needed Methylsulfonylmethane (MSM) 1000 MG TABS Take One time daily. metoprolol succinate (TOPROL-XL) 200 mg ER tablet take 1 tablet by mouth every evening 90 tablet 3 [facility] Natural Products (OSTEO BI-FLEX/5-LOXIN ADVANCED PO) Take by mouth. Takes 2 table ts in the morning and 2 tablets at night Multiple Vitamins-Minerals (CENTRUM SILVER PO) Take 1 tablet by mouth Daily. Nattokinase 100 MG CAPS PATIENT STATED NO LONGER TAKING THIS MEDICATION. STATED ON 08/22. Take by mouth 2 (two) times daily. nitroglycerin (NITROSTAT) 0.4 mg SL tablet Take one tablet under tongue as needed for c hest pain, may repeat every 5 minutes up to 3 doses. If no relief after 3rd dose, call 911 100 tablet 3 [place]-3 Fatty Acids (SALMON OIL-1000 PO) CAPS, one capsule by mouth daily twice daily ONE TOUCH DELICA LANCETS [facility] Check glucose as needed for hypoglycemia 100 each 3 pantoprazole (PROTONIX) 40 mg tablet Take 1 tablet by mouth every morning (before break fast). (Patient taking differently: Take 40 mg by mouth every morning (before breakfast). FENG LEONE STATED NO LONGER TAKING THIS MEDICATION. STATED ON 09/01/2016.) 30 tablet 2 pravastatin (PRAVACHOL) 40 MG tablet Take 1 tablet by mouth nightly. 90 tablet 3 promethazine (PHENERGAN) 25 mg tablet Take 25 mg by mouth every 8 hours as needed. (Rabia bashir taking differently: Take 25 mg by mouth every 8 hours as needed. PATIENT STATED NO LONG ER TAKING THIS MEDICATION. STATED ON 09/01/2016.) rOPINIrole (REQUIP) 1 mg tablet Take 1 [...] shortness of breath. Cardiovascular: Positive for chest pain. Negative for palpitations and leg swelling. Neurological: Positive for dizziness. Negative for weakness. Lightheaded = No OBJECTIVE: PHYSICAL EXAM BP 138/82 mmHg | Pulse 66 | Resp 14 | Ht 1.905 m (6' 3") | Wt 122.018 kg (269 lb) | BMI 33. 62 kg/m2 Physical Exam Constitutional: He is oriented [...] oriented to person, place, and time. Gait (mildly due to back pain) abnormal. Skin: Skin is warm, dry and intact. No cyanosis. Nails show no clubbing. Psychiatric: He has a normal mood and affect. His mood appears not anxious. He does not exh ibit a depressed mood. ECG: I personally independently reviewed ECG tracing during this visit (interpreted and phoebe led by another provider- Dr. Singletary) from 06/23/2016. LAB RESULTS reviewed during visit today primarily from [facility]: LIPID Lab Results Component Value [...] 03/19/2015 HGBEX 17.8* 05/12/2016 HCT 46.5 03/19/2015 PLT 136* 03/19/2015 PLTEX 129* 05/12/2016 I reviewed records from [facility] for office visit on 06/2016 whi ch is summarized in the HPI. Above data and testing is reviewed this visit; testing below is historical data unless othe rwise specified. ASSESSMENT: 1. Essential hypertension with goal blood pressure less than 130/80: A. Today patient has contact our office because of hypertension. He was out of the country for 2 months in [place]. He did not control his diet at that time and he gained 2 0 pounds of weight, he also stopped exercising. Over the last 5 weeks he has noticed that h is blood pressure has been elevated. [place] ago in his b lood pressure continues to be elevated. He has been able to lose 3 pounds, he has not start ed exercising but will soon do so and he already started modifying his diet. Patient states the metoprolol give some anxiety, therefore, we will not increase the dose he is already on . He has no angina or dyspnea or leg swelling. He is in class II of the [employer] functional class. On physical examination there are no signs of fluid overload. The plan will be to lose weight, modify portion control, start exercising, limit sodium in take and we will start losartan 25 mg once a day with a close monitoring of blood pressure. 2. Non-critical Coronary artery disease involving [place] coronary artery of [place] heart [facility] angina pectoris: A. Normal exercise sestamibi stress [...] attenuation cannot completely be ruled out. D. [facility] 12/25/13, shows non critical coronary artery [...] a normal left ventricular size with mild concentric left ventricular hypertrophy, LVEF 60%, grade 1 left ventricular diastolic dysfunction, mild aort ic root dilatation measuring 4.2 cm in diameter, mild mitral valve regurgitation, mild tricu spid valve regurgitation, mild aortic valve insufficiency. F. Echocardiogram 06/16/16, shows normal left ventricular size, wall thickness and motion , preserved left ventricular systolic function, LVEF is 70%, grade 1 left ventricular diasto lic dysfunction, normal valvular structure, mild aortic root dilatation measuring 4.0 cm in diameter, normal right-sided pressure, normal IVC with a normal respiratory collapse, when c ompared to echocardiography on 03/19/15, no significant changes. G. Today, he denies recurrent chest pain. 3. Symptomatic PVC's status post ablation: A. [...] ventricular arrhythmia performed by Dr. Gambino at [facility] on 01/30/2013. Patient had spontaneous PVCs from [...] to go back in 3 days to [place] for an attempt of ablation under general [...] patient has no further complaints of episodes palpitations, lightheadedness or d izziness. 4. Sinoatrial node dysfunction with symptomatic bradycardia: A. The echocardiogram on 05/25/09 revealed a normal left ventricular size and sys tolic function, LVEF 65 to 70%. B. Medtronic DDD permanent pacemaker implantation on 06/14/[address] Daljit masters. C. Today his device interrogation shows no events. Heart rate histogram shows a fair distribution. There is a normal stable device function. Estimated remaining battery l ongevity is 5 years.. 5. Lightheadedness and dizziness/ [...] arterial system to suggest pulmonary embolism C. CTA chest 03/18/15 shows Stable ectasia of ascending thoracic aorta that measures up to 4.1 cm. His echocardiogram at that same time showed 4.2 cm, so to minimize radiation exposur e, would plan on checking CTA if echocardiogram shows change, and plan on rechecking echocar diogram next spring. D. See section 1F PLAN: 1. Start Losartan 25 mg by mouth daily 2. check blood pressure and pulse twice daily for two weeks and return the log to our offic e. 3. Check BMP in one week 4. If his blood pressure increases then we can go back to his original therapeutic regimen . However, for now we will continue with the added losartan and monitor blood pressure clos alejandro. 5. He will follow up in 3 months as scheduled for office visit in device interrogation, or sooner with concerns. Portions of this chart may have been created with [employer] voice recognition software. Occasi onal wrong-word or [...] | Monitor | | MD [address] [place] | Interrogation | | | | | [place], | (Primary Dx); | | | | | [place] [address] | Pacemaker; | | | | | [phone] | Sinoatrial node | | | | | | dysfunction (HCC) | | | | | | with symptomatic | | | | | | bradycardia | +--------+ + + + + | 08/21/ | Implant | Cardiology | Daljit Singletary, | Remote Device | | 2019 | Monitor | | MD [address] [place] | Interrogation | | | | | [place], | (Primary Dx); | | | | | [place] [address] | Pacemaker; | | | | | [phone] | Sinoatrial node | | | | | | dysfunction (HCC) | | | | | | with symptomatic | | | | | | bradycardia | +--------+ + + + + | 08/21/ | Implant | Cardiology | Daljit Singletary, | Remote Device | | 2019 | Monitor | | MD [address] [place] | Interrogation | | | | | [place], | (Primary Dx); | | | | | [place] [address] | Pacemaker; | | | | | [phone] | Sinoatrial node | | | | | | dysfunction (HCC) | | | | | | with symptomatic | | | | | | bradycardia | +--------+ + + + + | 08/21/ | Implant | Cardiology | Daljit Singletary, | Remote Device | | 2019 | Monitor | | MD [address] [place] | Interrogation | | | | | [place], | (Primary Dx); | | | | | [place] [address] | Pacemaker; | | | | | [phone] | Sinoatrial node | | | | | | dysfunction (HCC) | | | | | | with symptomatic | | | | | | bradycardia | +--------+ + + + + | 08/21/ | Implant | Cardiology | Daljit Singletary, | Remote Device | | 2019 | Monitor | | MD [address] [place] | Interrogation | | | | | [place], | (Primary Dx); | | | | | [place] [address] | Pacemaker; | | | | | [phone] | Sinoatrial node | | | | [...] | | | | | | [place], | | | | | | [place] [address] | | | | | | [phone] | | | | | | | | +--------+ + + + + + +------+--------+ + + | Name | Type | Priori | Associated Diagnoses | Order Schedule | | | | ty | | | + +------+--------+ + + | Basic Metabolic | Lab | Routin | Essential | 1 Occurrences | | Panel | | e | hypertension with | starting 09/01/2016 | | | | | goal blood pressure | until 09/01/2017 | | | | | less than 130/80 | | + +------+--------+ + + documented as of this encounter Visit Diagnoses + + | Diagnosis | + + | Ascending thoracic aortic aneurysm (HCC) - Primary Thoracic aneurysm without mention | | of rupture | + + | Coronary artery disease involving [place] coronary artery of [place] heart without | | angina pectoris | + + | Essential hypertension with goal blood pressure less than 130/80 | + + | Hyperlipidemia, mixed Mixed hyperlipidemia | + + | Remote Device Interrogation [...]
--- OUTSIDE RECORDS SUMMARY | ~2020-08-06 | XMS | Encounter Summary ---
Demographics + + + | Address | [address] | | | [place] [address] | + + + | Home Phone [...] Team Providers + +------+ + | Care Continuous Process Rotary Drum Tanner Name | Role | Phone | + +------+ + | Kirk French MD | PCP | | + +------+ + Reason for Referral Evaluate & Treat (Routine) + + + + + + + | Status | Reason | Specialty | Diagnoses / | Referred By | Referred To | | | | | Procedures | Contact | Contact | + + + + + + + | Authorized | Specialty | | Diagnoses | Manolo, | Harpal Cai, | | | Services | | Chronic | Kirk Guidry, | [address] | | | Required | | pain | [address] | Delaney Crane | | | | | syndrome | [address] | [place], | | | | | | [address] | [place] [address] | | | | | | [place], [place] | Phone: | | | | | | [address] | [phone] | | | | | | Phone: | Fax: | | | | | | [phone] | [phone] | | | | | | Fax: | | | | | | | [phone] | | + + + + + + + Reason for Visit + + + | Reason | Comments | + + + | Annual Exam | | + + + Encounter Details +--------+---------+ + + + | Date | Type | Department | Care Team | Description | +--------+---------+ + + + | 01/11/ | Office | [facility] | Kirk French | Irritable bowel | | 2020 | Visit | [facility] | MD Bre[address] | syndrome, | | | | [facility] [address] | [address] | unspecified type | | | | [address] | [place] [address] | (Primary Dx); | | | | [place], [place] | [phone] | Chronic pain | | | | [address] | | syndrome; Smoker; | | | | [phone] | | Fatigue, unspecified | | | | | | type; | | | | | | Hyperlipidemia, | | | | | | mixed; Preventative | | | | | | health care; | | | | | | Coronary artery | | | | | | disease involving | | | | | | rosebud coronary | | | | | | artery of rosebud | | | | | | heart without angina | | | | | | pectoris; FATTY | | | | | | LIVER DISEASE; | | | | | | Obstructive sleep | | | | | | apnea on CPAP; Pain | | | | | | of upper abdomen; | | | | | | Obesity, unspecified | | | | | | classification, | | | | | | unspecified obesity | | | | | | type, unspecified | | | | | | whether serious | | | | | | comorbidity present | +--------+---------+ + + + Social History [...] + | Blood Pressure | 122/76 | 01/11/2020 12:41 PM | | | | | PST | | + + + + + | Pulse | 81 | 01/11/2020 12:41 PM | | | | | PST | | + + + + + | Temperature | 36.6 C (97.8 F) | 01/11/2020 12:41 PM | | | | | PST | | + + + + + | Respiratory Rate | 16 | 01/11/2020 12:41 PM | | | | | PST | | + + + + + | Oxygen Saturation | 97% | 01/11/2020 12:41 PM | | | | | PST | | + + + + + | Inhaled Oxygen | - | - | | | Concentration | | | | + + + + + | Weight | 121.2 kg (267 lb 3.2 | 01/11/2020 12:41 PM | | | | oz) | PST | | + + + + + | Height | 193 cm (6' 4") | 01/11/2020 12:41 PM | | | | | PST | | + + + + + | Body Mass Index | 32.52 | 01/11/2020 12:41 PM | | | | | PST [...] documented as of this encounter Progress Notes Kirk French MD - 01/11/2020 12:40 PM PSTFormatting of this note might be differen t from the original. Subjective: Patient ID: Moe Sanchez is a 59 y.o. male. HPI Review of Systems Constitutional: Positive for appetite change, fatigue and unexpected weight change. Negativ e for activity change. HENT: Negative for congestion, postnasal drip, rhinorrhea, sinus pressure and sinus pain. Eyes: Negative for photophobia, redness and visual disturbance. Respiratory: Negative for apnea, cough, shortness of breath and wheezing. Cardiovascular: Negative for chest pain, palpitations and leg swelling. Gastrointestinal: Positive for abdominal distention, abdominal pain, anal bleeding, blood i n stool, diarrhea, nausea and vomiting. Genitourinary: Positive for dysuria. Negative for difficulty urinating, discharge, frequenc y, hematuria, penile pain, scrotal swelling, testicular pain and urgency. Musculoskeletal: Positive for arthralgias, back pain, gait problem, joint swelling and myal gias. Negative for neck pain and neck stiffness. Skin: Negative for rash and wound. Neurological: Positive for dizziness, weakness, light-headedness and headaches. Negative fo r speech difficulty and numbness. Psychiatric/Behavioral: Positive for decreased concentration, dysphoric mood and sleep dist urbance. Negative for agitation and confusion. The patient is nervous/anxious. Objective: There were no vitals taken for this visit. Physical Exam Constitutional: General: He is not in acute distress. Appearance: He is well-developed. He is not diaphoretic. Comments: Up 49# obese HENT: Head: Normocephalic and atraumatic. Nose: Nose normal. Mouth/Throat: Pharynx: No oropharyngeal exudate. Eyes: General: No scleral icterus. Right eye: No discharge. Left eye: No discharge. Conjunctiva/sclera: Conjunctivae normal. Neck: Musculoskeletal: Normal range of motion and neck supple. Thyroid: No thyromegaly. Vascular: No JVD. Trachea: No tracheal deviation. Cardiovascular: Rate and Rhythm: Normal rate and regular rhythm. Heart sounds: No murmur. No friction rub. No gallop. Comments: aicd/ppm Pulmonary: Effort: Pulmonary effort is normal. No respiratory distress. Breath sounds: Normal breath sounds. No stridor. No wheezing. Abdominal: General: Bowel sounds are normal. Palpations: Abdomen is soft. Tenderness: There is no abdominal tenderness. Hernia: No hernia is present. Musculoskeletal: Normal range of motion. General: No deformity. Lymphadenopathy: Cervical: No cervical adenopathy. Skin: General: Skin is warm and dry. Coloration: Skin is not pale. Findings: No erythema or rash. Neurological: Mental Status: He is alert and oriented to person, place, and time. Cranial Nerves: No cranial nerve deficit. Sensory: No sensory deficit. Coordination: Coordination normal. Psychiatric: Behavior: Behavior normal. Assessment: Chemistry Component Value Date/Time NA 139 06/02/2019 1907 K 3.7 06/02/2019 1907 CL 106 06/02/2019 1907 CO2 25 06/02/2019 190 GLU 94 06/02/2019 190 BUN 15 06/02/2019 190 CREA 0.92 06/02/2019 190 ANIONGAP 8 06/02/2019 190 Component Value Date/Time CALCIUM 9.6 06/02/2019 190 ALKPHOS 76 06/02/2019 190 AST 35 (H) 06/02/2019 190 ALT 27 06/02/2019 190 TOTALPROTEIN 7.0 06/02/2019 190 ALBUMIN 4.7 06/02/2019 190 BILITOT 0.7 06/02/2019 190 Lab Results Component Value Date EGFR >60 11/25/2018 GLUF 83 11/25/2018 GLOB 2.3 (A) 06/02/2019 Lab Results Component Value Date WBC 6.3 06/02/2019 HGB 16.3 06/02/2019 HCT 46.4 06/02/2019 MCV 97.5 06/02/2019 PLT 169 06/02/2019 No results found for: SXAWUIBS02 No results found for: FOLATE No results found for: IRON, TIBC, FERRITIN Lab Results Component Value Date TSH 1.07 12/31/2016 No results found for: HBA1C Lab Results Component Value Date CHOL 152 10/18/2017 CHOL 162 12/31/2016 CHOL 109 02/28/2014 Lab Results Component Value Date HDL 63 10/18/2017 HDL 44 12/31/2016 HDL 35 (L) 02/28/2014 Lab Results Component Value Date LDL 76 10/18/2017 LDL 94 12/31/2016 LDL 67 02/28/2014 No results found for: LDLDIRECT Lab Results Component Value Date TRIG 63 10/18/2017 TRIG 118 12/31/2016 TRIG 37 02/28/2014 Lab Results Component Value Date CHOLHDL 3.4 06/22/2016 CHOLHDL 3.1 08/08/2013 CHOLHDL 5.5 05/27/2012 Recent GI appt: diarrhea, abdominal cramping and weight loss. He has had extensive evaluation including sto ol studies for multiple organisms with a positive enteropathogenic E.coli. Unclear to me if he received treatment but will plan to repeat this study as well as another broad panel incl uding giardia, ova and parasite, stool culture and also will obtain fecal calprotecin and fe maria luz elastase to screen for inflammation and maldigestion. He has not responded to standard a ntidiarrheal agents so will start trial of nortryptiline which should help with both abdomin al pain and diarrhea. Will uptitrate if tolerated. Finally, recommend a capsule endoscopy to complete evaluation of small bowel if these stool studies are negative. Plan and Recommendations: 1. [facility] in [place] for stool studies as outlined above 2. If negative and symptoms persist, recommend capsule endoscopy (this could be completed b y local [facility] or he could return to [place] for this test) 3. Nortryptiline 25mg q HS with instruction to titrate to 50mg q HS after 2 weeks if tolera kevin Follow-Up: with local [facility] Counseling Time: I spent a total of 35 minutes with this patient, of which greater than 50% of the time was spent in counseling. Specific issues that were discussed included a review of the disease, diagnostic tools that help in our management plans for the patient's chronic diarrhea, abdominal cramping and weight loss and goals for treatment. Bridgette Rios MD [facility] Specialist Gastroenterology Many co and concerns: Co bleeding Co weak Co tired Co diarrhea Co cramps Co weight changes Co 14 stool in 2 hours this AM Took 8 imodium and 2 lomotil Not taking nortriptyline as prescribed by his GI Also wants a script for hemorrhoids Pending pill endoscopy and colonoscopy May be interested in Velva if no results States was down 210# now 267 Co bedridden and can't leave the house Co incontinence States many ER visits, once a week in [place], tx with IVF and dilaudid Conc re ppm Conc re r shoulder tkr and need for mri Issues with Klonopin Was arrested for DUI, self dc 08/14, had difficult withdrawal ofr 2 weeks Walks daily now for stress and exercise 1-5 miles a day Plan: ASSESSMENT AND PLAN: 1. Approximately 40 minutes of time on this gentleman's case [id number], a lot of it was reviewing outside records. 2. Coronary artery disease, automated implantable cardioverter-defibrillator. He is going to be due for a battery replacement soon and he is concerned about the lead replacement and I answered his questions best I could. 3. Continued diarrhea with wide fluctuations in weight. Operating diagnosis is still irri table bowel syndrome; however, there are many things about his case which are highly atypica l. Followed by Dr. Rios at [facility]. I reviewed her notes in the patient's presence. Ashlee guevara is another colonoscopy and capsule endoscopy. 4. Hemorrhoids, obviously secondary to what I typed in above. Trial of Proctofoam. 5. Chronic pain, trending towards worsening. He is off of all narcotics, but is reaching a point where he is no longer functional. In his particular case, I think he may benefit fr om being on pain medication again as it may also ameliorate some of his adverse GI symptoms. 6. Severe fluctuations in weight gain. Hard for me to explain how he could gain at least 50 pounds in 3 months, but that is where he is at. At any rate, he is currently at his base line, which I will consider to be favorable. 7. He will be due for labs by next visit. This was discussed and will be ordered. 8. Status post withdrawal from Klonopin. Sounds like a particularly miserable time, fortu nately he got through it safely. 8. Most recent labs were reviewed in his presence. documented in th is encounter Plan of Treatment +--------+ + + + + | Date | Type | Specialty | Care Team | Description | +--------+ + + + + | 08/21/ | Implant | Cardiology | Daljit Singletary, | Remote Device | | 2019 | Monitor | | MD Chiquis Kauffmanar | Interrogation | | | | | [place], | (Primary Dx); | | | | | [place] [address] | Pacemaker; | | | | | [phone] | Sinoatrial node | | | | | | dysfunction (HCC) | | | | | | with symptomatic | | | | | | bradycardia | +--------+ + + + + | 08/21/ | Implant | Cardiology | Daljit Singletary, | Remote Device | | 2019 | Monitor | | MD [address] | Interrogation | | | | | [place], | (Primary Dx); | | | | | [place] [address] | Pacemaker; | | | | | [phone] | Sinoatrial node | | | | | | dysfunction (HCC) | | | | | | with symptomatic | | | | | | bradycardia | +--------+ + + + + | 08/21/ | Implant | Cardiology | Daljit Singletary, | Remote Device | | 2019 | Monitor | | MD [address] | Interrogation | | | | | [place], | (Primary Dx); | | | | | [place] [address] | Pacemaker; | | | | | [phone] | Sinoatrial node | | | | | | dysfunction (HCC) | | | | | | with symptomatic | | | | | | bradycardia | +--------+ + + + + | 08/21/ | Implant | Cardiology | Daljit Singletary, | Remote Device | | 2019 | Monitor | | MD [address] | Interrogation | | | | | [place], | (Primary Dx); | | | | | [place] [address] | Pacemaker; | | | | | [phone] | Sinoatrial node | | | | | | dysfunction (HCC) | | | | | | with symptomatic | | | | | | bradycardia | +--------+ + + + + | 08/21/ | Implant | Cardiology | Daljit Singletary, | Remote Device | | 2019 | Monitor | | MD [address] | Interrogation | | | | | [place], | (Primary Dx); | | | | | [place] [address] | Pacemaker; | | | | | [phone] | Sinoatrial node | | | | | | dysfunction ([facility]) | | | | | [...] [address] | | | | | | [place], | | | | | | [place] [address] | | | | | | [phone] | | | | | | | | +--------+ + + + + + + +--------+ + + | Name | Type | Priori | Associated Diagnoses | Order Schedule | | | | ty | | | + + +--------+ + + | Ambulatory Referral | Outpatient | Routin | Chronic pain | Ordered: 01/11/2020 | | to [facility] | Referral | e | syndrome | | | Clinic | | | | | | (Multi-Location) | | | | | + + +--------+ + + documented as of this encounter Visit Diagnoses + + | Diagnosis | + + | Irritable bowel syndrome, unspecified type - Primary | + + | Chronic pain syndrome | + + | Smoker Tobacco use disorder | + + | Fatigue, unspecified type | + + | Hyperlipidemia, mixed Mixed hyperlipidemia | + + | Preventative health care Routine general medical examination at [facility] | | facility | + + | Coronary artery disease involving rosebud coronary artery of rosebud heart without | | angina pectoris | + + | FATTY LIVER DISEASE Other chronic nonalcoholic liver disease | + + | Obstructive sleep apnea on CPAP Obstructive sleep apnea (adult) (pediatric) | + + | Pain of upper abdomen Abdominal pain, other specified site | + + | Obesity, unspecified classification, unspecified obesity type, unspecified whether | | serious comorbidity present | + + | Remote Device Interrogation [...]
--- OUTSIDE RECORDS SUMMARY | ~2020-08-06 | XMS | Encounter Summary ---
Demographics + + + | Address | [address] [place] [address] [address] | | | [place] [address] | + + + | Home Phone | | + + + | Preferred Language | Unknown | + + + | Marital Status | | + + + | Mormon Affiliation | Unknown | + + + | Race | White | + + + | Ethnic Group | Not or | + + + Author + + + | Author | [facility] | + + + | Organization | [facility] | + + + | Address | Unknown | + + + | Phone | Unavailable | + + + Support + + + + + | Name | Relationship | Address | Phone | + + + + + | Rachel Valencia | [address] | [place] | | | | | [address] | | + + + + + Care Team Providers + +------+ + | Care Coding Auditor Name | Role | Phone | + +------+ + | Darion Holden DO | PCP | | + +------+ + Encounter Details +--------+------+ + + + | Date | Type | Department | Care Team | Description | +--------+------+ + + + | 02/03/ | Lab | Laboratory at [facility] | | Chest pain; | | 2010 | | [address] | | Bradycardia | | | | [facility] | | | | | | and Healing, | | | | | | [address] | | | | | | [place], [place] | | | | | | [address] | | | | | | [phone] | | | +--------+------+ + + + Social History + +-------+ [...] | + +--------+ + + + | COMPLETE METABOLIC | Routin | 02/03/2011 | Chest pain | Results for this | | SET | e | 4:08 PM | Bradycardia | procedure are in the | | (NA,K,CL,CO2,BUN,CRE | | PDT | | results section. | | AT,GLUC,CA,AST,ALT,B | | | | | | SHYAM TOTAL,ALK | | | | | | PHOS,ALB,PROT TOTAL) | | | | | + +--------+ + + + | TSH | Routin | 02/03/2011 | Chest pain | Results for this | | | e | 4:08 PM | Bradycardia | procedure are in the | | | | PDT | | results section. | + +--------+ + + + | CORTISOL, SERUM | Routin | 02/03/2011 | Chest pain | Results for this | | | e | 4:08 PM | Bradycardia | procedure are in the | | | | PDT | | results section. | + +--------+ + + + documented in this encounter Results TSH (02/03/2011 4:08 PM PDT) + +-------+ [...] ([facility]) | [facility] | | [facility] [address] | REGIONAL | | [place] [address] | LABORATORY | + + + + + + + + | Performing | Address | City/State/Zipcode | Phone Number | | Organization | | | | + + + + + | [facility] | [address] | [place] [address] | | | LABORATORY | | | [...] [facility] ([facility]) | | | [facility] [place] [address] | | | [address] [facility] [place] [address] | | + + + + + + + + | Performing | Address | City/State/Zipcode | Phone Number | | Organization | | | | + + + + + | [facility] | [address] | [place] [address] | | | LABORATORY | | | [...] | | | DEPARTMENT | | | [place] | | | OF | | | [...] | + + + + + | [facility] | [address] | [place] [address] | | | PATHOLOGY | [address] | | | + + + + + documented in this encounter Visit Diagnoses + + | Diagnosis | + + | Chest pain Chest pain, unspecified | + + | Bradycardia Other specified cardiac dysrhythmias | + + documented in this encounter"
--- OUTSIDE RECORDS SUMMARY | ~2020-08-06 | XMS | Encounter Summary ---
Demographics + + + | Address | [address] | | | [place] [address] | + + + | Home Phone [...] | + + +---------+ + | Chao Rohan | ECON | Unknown | | + + +---------+ + Care Team Providers + +------+ + | Care Pencils Washer Name | Role | Phone | + +------+ + | Kirk French MD | PCP | | + +------+ + Encounter Details +--------+ + + + + | Date | Type | Department | Care Team | Description | +--------+ + + + + | 10/25/ | Hospital | [facility] | Kirk French | Aneurysm (HCC) | | 2017 | Encounter | [facility] | MD [address] | | | | | [address] | [address] | | | | | [place], [place] | [place] [address] | | | | | [address] | [phone] | | | | | [phone] | | | | | | | [...] + + + +---------+ + + | Dornsife-3 Fatty | CAPS, one capsule by | [...] 2 tablets in | | | | 0 | | BI-FLEX/5-LOXIN | the morning and [...] | mouth Daily. | | | | 0 | | | MARINE-D3 | | | | | + + + +---------+ + + | UNCODED MEDICATION | Diagnosis: | 1 | 0 | 02/16/20 | | | | Obstructive Sleep | Device | | 13 | 0 | | | ApneaICD-9: | | | [...] Interrogation | | | | | [place], | (Primary Dx); | | | | | [place] [address] | Pacemaker; | | | | | [phone] | Sinoatrial node | | | | | | dysfunction (HCC) | | | | | | with symptomatic | | | | | | bradycardia | +--------+ + + + + | 08/21/ | Implant | Cardiology | Daljit Singletary, | Remote Device | | 2019 | Monitor | | MD [address] | Interrogation | | | | | [place], | (Primary Dx); | | | | | [place] [address] | Pacemaker; | | | | | [phone] | Sinoatrial node | | | | | | dysfunction (HCC) | | | | | | with symptomatic | | | | | | bradycardia | +--------+ + + + + | 08/21/ | Implant | Cardiology | Daljit Singletary, | Remote Device | | 2019 | Monitor | | MD [address] | Interrogation | | | | | [place], | (Primary Dx); | | | | | [place] [address] | Pacemaker; | | | | | [phone] | Sinoatrial node | | | | | | dysfunction (HCC) | | | | | | with symptomatic | | | | | | bradycardia | +--------+ + + + + | 08/21/ | Implant | Cardiology | Daljit Singletary, | Remote Device | | 2019 | Monitor | | MD [address] | Interrogation | | | | | [place], | (Primary Dx); | | | | | [place] [address] | Pacemaker; | | | | | [phone] | Sinoatrial node | | | | | | dysfunction (HCC) | | | | | | with symptomatic | | | | | | bradycardia | +--------+ + + + + | 08/21/ | Implant | Cardiology | Anshushaistatesha Shaistapawanotto, | Remote Device | | 2019 | Monitor | | [address] | Interrogation | | | | | [place], | (Primary Dx); | | | | | [place] [address] | Pacemaker; | | | | | [phone] | Sinoatrial node | | | | | | dysfunction ([facility]) | | | | | | [...] [address] | | | | | | [place], | | | | | | [place] [address] | | | | | | [phone] | | | | | | | | +--------+ + + + + documented as of this encounter Visit Diagnoses + + | Diagnosis | + + | Aneurysm (HCC) Aneurysm of unspecified site | + + | Remote Device Interrogation [...]
--- OUTSIDE RECORDS SUMMARY | ~2020-08-06 | XMS | Encounter Summary ---
Demographics + + + | Address | [address] | | | [place] [address] | + + + | Home Phone [...] Team Providers + +------+ + | Care Pharmaceutical Physician Name | Role | Phone | + +------+ + PCP | Unavailable | + +------+ + Encounter Details +--------+ + + + + | Date | Type | Department | Care Team | Description | +--------+ + + + + | 06/30/ | Hospital | [facility] OP | Conversion | | | 2000 | Encounter | CONVERSION | Transaction, | | | | | DEPARTMENT [address] | Provider Unknown | | | | | [address] | | | | | | [place], [place] | (Fax) | | | | | [address] | | | | | | [phone] | | | +--------+ + + + [...] | Monitor | | MD [address] | Interrogation | | | | | [place], | (Primary Dx); | | | | | [place] [address] | Pacemaker; | | | | | [phone] | Sinoatrial node | | | | | | dysfunction (HCC) | | | | | | with symptomatic | | | | | | bradycardia | +--------+ + + + + | 08/21/ | Implant | Cardiology | Daljit Singletary, | Remote Device | | 2019 | Monitor | | MD [address] | Interrogation | | | | | [place], | (Primary Dx); | | | | | [place] [address] | Pacemaker; | | | | | [phone] | Sinoatrial node | | | | | | dysfunction (HCC) | | | | | | with symptomatic | | | | | | bradycardia | +--------+ + + + + | 08/21/ | Implant | Cardiology | Daljit Singletary, | Remote Device | | 2019 | Monitor | | MD [address] | Interrogation | | | | | [place], | (Primary Dx); | | | | | [place] [address] | Pacemaker; | | | | | [phone] | Sinoatrial node | | | | | | dysfunction (HCC) | | | | | | with symptomatic | | | | | | bradycardia | +--------+ + + + + | 08/21/ | Implant | Cardiology | Daljit Singletary, | Remote Device | | 2019 | Monitor | | MD [address] | Interrogation | | | | | [place], | (Primary Dx); | | | | | [place] [address] | Pacemaker; | | | | | [phone] | Sinoatrial node | | | | | | dysfunction (HCC) | | | | | | with symptomatic | | | | | | bradycardia | +--------+ + + + + | 08/21/ | Implant | Cardiology | Daljit Singletary, | Remote Device | | 2020 | Monitor | | MD [address] | Interrogation | | | | | [place], | (Primary Dx); | | | | | [place] [address] | Pacemaker; | | | | | [phone] | Sinoatrial node | | | | [...] | | | | | | [place] [id number] | | | | | | [phone] | | | | | | | | +--------+ + + + + documented as of this encounter Visit Diagnoses Not on filedocumented in this encounter"
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
--- OUTSIDE RECORDS SUMMARY | ~2020-08-06 | XMS | Encounter Summary ---
Demographics + + + | Address | [address] | | | [place] [address] | + + + | Home Phone [...] Team Providers + +------+ + | Care Tableau Administrator Name | Role | Phone | + +------+ + PCP | Unavailable | + +------+ + Encounter Details +--------+ + + + + | Date | Type | Department | Care Team | Description | +--------+ + + + + | 05/28/ | Hospital | [facility] | Evan Gandara MD | | | 2008 | Encounter | [facility] | [address] [facility] | | | | | [address] | [place] | | | | | [place] | [address] | | | | | [address] | | | | | | [phone] | | | +--------+ + + + [...] Interrogation | | | | | [place], | (Primary Dx); | | | | | [place] [address] | Pacemaker; | | | | | [phone] | Sinoatrial node | | | | | | dysfunction (HCC) | | | | | | with symptomatic | | | | | | bradycardia | +--------+ + + + + | 08/21/ | Implant | Cardiology | Daljit Singletary, | Remote Device | | 2019 | Monitor | | MD [address] | Interrogation | | | | | [place], | (Primary Dx); | | | | | [place] [address] | Pacemaker; | | | | | [phone] | Sinoatrial node | | | | | | dysfunction (HCC) | | | | | | with symptomatic | | | | | | bradycardia | +--------+ + + + + | 08/21/ | Implant | Cardiology | Daljit Singletary, | Remote Device | | 2020 | Monitor | | MD [address] | Interrogation | | | | | [place], | (Primary Dx); | | | | | [place] [address] | Pacemaker; | | | | | [phone] | Sinoatrial node | | | | | | dysfunction ([facility]) | | | | | | with symptomatic | | | | | | bradycardia | +--------+ + + + + | 08/21/ | Implant | Cardiology | Daljit Singletary, | Remote Device | | 2019 | Monitor | | MD [address] | Interrogation | | | | | [place], | (Primary Dx); | | | | | [place] [address] | Pacemaker; | | | | | [phone] | Sinoatrial node | | | | | | dysfunction ([facility]) | | | | | | with symptomatic | | | | | | bradycardia | +--------+ + + + + | 08/21/ | Implant | Cardiology | Daljit Singletary, | Remote Device | | 2019 | Monitor | | MD [address] | Interrogation | | | | | [place], | (Primary Dx); | | | | | [place] [address] | Pacemaker; | | | | | [phone] | Sinoatrial node | | | | [...] [place], | | | | | | [place] [address] | | | | | | [phone] | | | | | | | | +--------+ + + + + documented as of this encounter Visit Diagnoses Not on filedocumented in this encounter"
--- OUTSIDE RECORDS SUMMARY | ~2020-08-06 | XMS | Encounter Summary ---
Demographics + + + | Address | [address] | | | [place] [address] | + + + | Home Phone [...] Team Providers + +------+ + | Care Ship Steward Name | Role | Phone | + +------+ + | Kirk French MD | PCP | | + +------+ + Reason for Visit + +--------+ + | Reason | Onset | Comments | | | Date | | + +--------+ + | Results, Pathology | 01/03/ | allan paris | | | 2018 | | + +--------+ + Encounter Details +--------+ + + + + | Date | Type | Department | Care Team | Description | +--------+ + + + + | 01/03/ | Telephone | [facility] [place] | Emmanuel Daniel MD | Results, Pathology | | 2018 | | GASTROENTEROLOGY | [address], [place] | (egd,colon) | | | | [address] [place] | [address] [place], [place] | | | | | [address] [place], [place] | [address] | | | | | [address] | | | | | | [phone] | | | +--------+ + + + [...] Telephone Encounter - Kaylynn Copeland RN - 01/03/2018 3:33 PM PSTNotified patient th at H Pylori biopsy from stomach was negative. Duodenal biopsies positive for mild chronic i nflammation. Biopsies from colon and from terminal ileum normal. Stool studies negative. Patient states he has had no further weight loss and has had a weight gain. He states the d iarrhea has decreased which he attributes to the protein drinks that he is drinking. He is also taking probiotics. He agrees to call if any further GI symptoms. He states it his hea rt checks out he will buy his ticket to [place]. Recall for colonoscopy entered for 5 years due to family history of colon cancer. elephone Encounter - Kaylynn Copeland RN - 01/03/2018 1:37 PM PSTLeft message asking patient to call for results. H. pylori biopsy negative. Duodenal bi opsies positive for chronic mild inflammation. Colon biopsies and biopsies from terminal il eum normal. Stool studies negative. Dr. Daniel asks for an update on any further diarrhea o r weight loss. [facility] umented in this encounter Plan of Treatment +--------+ + + + + | Date | Type | Specialty | Care Team | Description | +--------+ + + + + | 08/21/ | Implant | Cardiology | Daljit Singletary, | Remote Device | | 2019 | Monitor | | [address] | Interrogation | | | | | [place], | (Primary Dx); | | | | | [place] [address] | Pacemaker; | | | | | [phone] | Sinoatrial node | | | | | | dysfunction (HCC) | | | | | | with symptomatic | | | | | | bradycardia | +--------+ + + + + | 08/21/ | Implant | Cardiology | Daljit Singletary, | Remote Device | | 2019 | Monitor | | MD [address] | Interrogation | | | | | [place], | (Primary Dx); | | | | | [place] [address] | Pacemaker; | | | | | [phone] | Sinoatrial node | | | | | | dysfunction (HCC) | | | | | | with symptomatic | | | | | | bradycardia | +--------+ + + + + | 08/21/ | Implant | Cardiology | Daljit Singletary, | Remote Device | | 2019 | Monitor | | MD [address] | Interrogation | | | | | [place], | (Primary Dx); | | | | | [place] [address] | Pacemaker; | | | | | [phone] | Sinoatrial node | | | | | | dysfunction (HCC) | | | | | | with symptomatic | | | | | | bradycardia | +--------+ + + + + | 08/21/ | Implant | Cardiology | Daljit Singletary, | Remote Device | | 2019 | Monitor | | MD [address] | Interrogation | | | | | [place], | (Primary Dx); | | | | | [place] [address] | Pacemaker; | | | | | [phone] | Sinoatrial node | | | | | | dysfunction (HCC) | | | | | | with symptomatic | | | | | | bradycardia | +--------+ + + + + | 08/21/ | Implant | Cardiology | Daljit Singletary, | Remote Device | | 2019 | Monitor | | MD [address] | Interrogation | | | | | [place], | (Primary Dx); | | | | | [place] [address] | Pacemaker; | | | | | [phone] | Sinoatrial node | | | | | | dysfunction ([facility]) | | | | | | with symptomatic | | | | | | bradycardia | +--------+ + + + + | 10/23/ | Procedure | Cardiology | | | | 2019 | visit | | | | +--------+ + + + + | 10/23/ | Office | Cardiology | Silvia | | | 2019 | Visit | | [address] | | | | | | [address] [place], | | | | | | [place] [address] | | | | | | [phone] | | | | | | | | +--------+ + + + + documented as of this encounter Visit Diagnoses Not on filedocumented in this encounter"
--- OUTSIDE RECORDS SUMMARY | ~2020-08-06 | XMS | Encounter Summary ---
Demographics + + + | Address | [id number] [place] [address] [place] | | | [place] [address] | + + + | Home Phone | | + + + | Preferred Language | Unknown | + + + | Marital Status | | + + + | Tenriism Affiliation | Unknown | + + + | Race | White | + + + | Ethnic Group | Not or | + + + Author + + + | Author | [facility] | + + + | Organization | [facility] | + + + | Address | Unknown | + + + | Phone | Unavailable | + + + Support + + + + + | Name | Relationship | Address | Phone | + + + + + | Rachel Valencia | [address] | [place] | | | | | [address] | | + + + + + Care Team Providers + +------+ + | Care Table Saw Operator Name | Role | Phone | + +------+ + | Darion Holden DO | PCP | | + +------+ + Reason for Visit +--------+--------+ + | Reason | Onset | Comments | | | Date | | +--------+--------+ + | Other | 05/08/ | | | | 2020 | | +--------+--------+ + Encounter Details +--------+ + + + + | Date | Type | Department | Care Team | Description | +--------+ + + + + | 05/08/ | Telephone | [facility] | Bridgette Rios, | Other | | 2020 | | [facility] [address] | MD [address] | | | | | [address] | [place], [place] | | | | | for Health and | [address] | | | | | [facility], [facility] [address] | [phone] | | | | | [place], [place] | | | | | | [address] | | | | | | [phone] | | | +--------+ + + + [...] this encounter Miscellaneous Notes Telephone Encounter - Allyson Diehl RN - 05/13/2020 2:54 PM PDT----- Message ----- From: Eve Morrell Sent: 05/13/2020 12:40 PM PDT To: Allyson Diehl, RN, Dea Nichols, * Hi, I just s/w Amilcar, he says he cannot make it here in May and will call us in about a month t o schedule in June. We do not have that endo template open yet. I've released the hold on 06/13. Thanks, [place] elephone E ncounter - Allyson Diehl RN - 05/13/2020 10:58 AM PDTSpoke with Amilcar and discussed mess age below, he is agreeable to completing testing at [facility]. Briefly discussed COVID testing pr ior to procedure, can do locally or here at [facility]. He plans on travelling with his dogs (and S.O. I presume) to [place]. He is a little worried his GI symptoms are worsening, he had some abdominal cramping today and took dicyclomine which helped, but he hasn't needed dicyclomine in the last 6 weeks. [place] ssurance provided, and continuing workup is a good next step. ----- Message ----- From: Bridgette Rios MD Sent: 05/13/2020 9:04 AM PDT To: Allyson Diehl RN Great news! He can do these within 3 months assuming he is currently doing so well.Electro nically signed by Allyson Diehl RN at 05/13/2020 11:07 AM PDTTelephone Encounter - Allyson Rubio RN - 05/09/2020 2:15 PM PDTCurrent plan was for small bowel capsule and colon oscopy in January 2020. Colonoscopy had been added due to increase of BRBPR. Will want to chec k how his symptoms are now, what medications he is taking. Spoke with Amilcar to check on his symptoms, and answer his questions of he should schedule ca psule/colonoscopy now. Last we spoke was in January right before the COVID19 pandemic started. At that time his GI s ymptoms were moderate to severe. Currently he reports his diarrhea and GI symptoms are pretty well controlled. 1-2 BM's per day, hardly any blood. Stomach cramps and bloating are much better. He describes it as having a flare of symptoms that have gone away. He attributes this to watching his diet closely. He says any greasy foods set off a flare, or restaurant foods, and he has been avoiding these. He reports his current weight is 260lbs. When asked about his GI medication regimen, he says he is taking lomotil, hyoscyamine and z ofran as needed. This is an improvement, as last time he was taking them all at maximum dosi ng. He has added a probiotic in the morning. His PCP put him him Lyrica, he says it's been a few days and it's going well (no side effec ts). He would like to complete the colonoscopy and capsule to "finish the workup" but wants to k now how urgently he should get it done. He will mail his 2001 medical records because he had those same flare symptoms then that la sted for a year, if it would help us figure out what is going on. Discussed that his symptoms being better controlled is good news overall. Our current diagn oses of chronic diarrhea and abdominal cramping are pending the completion of the recommende d workup with colonoscopy/capsule. 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 Let him know it doesn't not sound urgent he come in for procedures, and that I would review with Dr. Rios for recommendations. I had previously arranged combo capsule/colonoscopy at 2 local facilities that he ended up not going through with, so it sounds like he is wanting to come to [facility] when it's time. elephone Encounter - Netta Alexander - 05/08/2020 4:06 PM PDTPerson calling? (Patient, spouse, caregiver, me dical office, etc): Self Reason for call: wanting to discuss his PROC the Dr. Rios has ordered. He would like to know if it is necessary at this time. Close to his home where he would be getting it done, right now has a high outbreak of patients with Covid. He wants to know "if the risk is wor th the reward" He said maybe he should come to [facility] for it. Provider / Specialty: wanda henning/ Blanca Call back number confirmed?: yes Best call back number / ext: [phone] / noted under contact or phone tab. Caller would like a call back to discuss. Ok to leave a detailed message?: yes documented in this encou nter Plan of Treatment Not on filedocumented as of this encounter Visit Diagnoses Not on filedocumented in this encounter
--- OUTSIDE RECORDS SUMMARY | ~2020-08-06 | XMS | Encounter Summary ---
Demographics + + + | Address | [address] | | | [place] [address] | + + + | Home Phone [...] | + + +---------+ + | Chao Soodilya | ECON | Unknown | | + + +---------+ + Care Team Providers + +------+ + | Care Director Mortgage Name | Role | Phone | + [...] | Refill | [facility] [place] | [place], | Medication Refill | | 2012 | | CARDIOLOGY [address] | | | | | [address], | [address], | | | | | [place] [address] | [place] [address] | | | | | [phone] | [phone] | | | | | | | [...] | Monitor | | MD [address] | Interrogation | | | | | [place], | (Primary Dx); | | | | | [place] [address] | Pacemaker; | | | | | [phone] | Sinoatrial node | | | | | | dysfunction ([facility]) | | | | | | with symptomatic | | | | | | bradycardia | +--------+ + + + + | 08/21/ | Implant | Cardiology | Daljit Singletary, | Remote Device | | 2019 | Monitor | | MD [address] | Interrogation | | | | | [place], | (Primary Dx); | | | | | [place] [address] | Pacemaker; | | | | | [phone] | Sinoatrial node | | | | | | dysfunction (HCC) | | | | | | with symptomatic | | | | | | bradycardia | +--------+ + + + + | 08/21/ | Implant | Cardiology | Daljit Singletary, | Remote Device | | 2019 | Monitor | | MD [address] | Interrogation | | | | | [place], | (Primary Dx); | | | | | [place] [address] | Pacemaker; | | | | | [phone] | Sinoatrial node | | | | | | dysfunction (HCC) | | | | | | with symptomatic | | | | | | bradycardia | +--------+ + + + + | 08/21/ | Implant | Cardiology | Daljit Singletary, | Remote Device | | 2019 | Monitor | | MD [address] | Interrogation | | | | | [place], | (Primary Dx); | | | | | [place] [address] | Pacemaker; | | | | | [phone] | Sinoatrial node | | | | | | dysfunction (HCC) | | | | | | with symptomatic | | | | | | bradycardia | +--------+ + + + + | 08/21/ | Implant | Cardiology | Daljit Singletary, | Remote Device | | 2019 | Monitor | | MD [address] | Interrogation | | | | | [place], | (Primary Dx); | | | | | [place] [address] | Pacemaker; | | | | | [phone] | Sinoatrial node | | | | | | dysfunction ([facility]) | | | | [...] W | | | | | | [address], | | | | | | [place] [address] | | | | | | [phone] | | | | | | | | +--------+ + + + + documented as of this encounter Visit Diagnoses Not on filedocumented in this encounter"
--- OUTSIDE RECORDS SUMMARY | ~2020-08-06 | XMS | Encounter Summary ---
Demographics + + + | Address | [address] | | | [place] [address] | + + + | Home Phone [...] Team Providers + +------+ + | Care Anesthesiology Physician Name | Role | Phone | [...] + | 04/24/ | Office | [facility] | Jay Cohn PA | DIDIER on CPAP (Primary | | 2012 | Visit | SLEEP DISORDER [address] | [address] | Dx) | | | | [address] [place] | [place] | | | | | [place] [address] | [address] | | | | | [phone] | | | +--------+---------+ + + + [...] documented in this encounter Progress Notes Jay Cohn PA - 04/24/2013 10:47 AM PDT Subjective: Patient ID: Moe Sanchez is a 53 y.o. male. HPI last office visit was: 02/15/2013 date of polysomnography: 11/05/2010 AHI: 26.8 RDI: 43.2 O2%: 83% with 22.5 minutes below 88% Machine type: ResMed S9 with nasal pillows obtained from: [facility] in [place] pressure is: 13 cm CPAP download shows [...] to go to [facility] in [place] to have them download his memory card. I will readjust his pressure, if necessary. I will call him with the results. He is to work toward wearing his CPAP 100% of the time he is asleep. I will follow up again in 1 month, sooner prn. Fifteen minutes were spent [id number], wi th the majority of time spent [...] | | | | | [place], | (Primary Dx); | | | | | [place] [address] | Pacemaker; | | | | | [phone] | Sinoatrial node | | | | | | dysfunction (HCC) | | | | | | with symptomatic | | | | | | bradycardia | +--------+ + + + + | 08/21/ | Implant | Cardiology | Daljit Singletary, | Remote Device | | 2020 | Monitor | | MD [address] | Interrogation | | | | | [place], | (Primary Dx); | | | | | [place] [address] | Pacemaker; | | | | | [phone] | Sinoatrial node | | | | | | dysfunction (HCC) | | | | | | with symptomatic | | | | | | bradycardia | +--------+ + + + + | 08/21/ | Implant | Cardiology | Daljit Singletary, | Remote Device | | 2019 | Monitor | | MD [address] | Interrogation | | | | | [place], | (Primary Dx); | | | | | [place] [address] | Pacemaker; | | | | | [phone] | Sinoatrial node | | | | | | dysfunction (HCC) | | | | | | with symptomatic | | | | | | bradycardia | +--------+ + + + + | 08/21/ | Implant | Cardiology | Daljit Singletary, | Remote Device | | 2019 | Monitor | | MD [address] | Interrogation | | | | | [place], | (Primary Dx); | | | | | [place] [address] | Pacemaker; | | | | | [phone] | Sinoatrial node | | | | | | dysfunction (HCC) | | | | | | with symptomatic | | | | | | bradycardia | +--------+ + + + + | 08/21/ | Implant | Cardiology | Daljit Singletary, | Remote Device | | 2019 | Monitor | | MD [address] | Interrogation | | | | | [place], | (Primary Dx); | | | | | [place] [address] | Pacemaker; | | | | | [phone] | Sinoatrial node | | | | | | dysfunction ([facility]) | | | | | | with [...] [address] | | | | | | [address] [place], | | | | | | [place] [address] | | | | | | [phone] | | | | | | | | +--------+ + + + + documented as of this encounter Visit Diagnoses + + | Diagnosis | + + | DIDIER on CPAP - Primary Obstructive sleep apnea (adult) (pediatric) | + + | Remote Device Interrogation [...]
--- OUTSIDE RECORDS SUMMARY | ~2020-08-06 | XMS | Encounter Summary ---
Demographics + + + | Address | [address] [place] [address] [address] | | | [place] [address] | + + + | Home Phone | | + + + | Preferred Language | Unknown | + + + | Marital Status | | + + + | Caodaism Affiliation | Unknown | + + + | Race | White | + + + | Ethnic Group | Not or | + + + Author + + + | Author | [facility] | + + + | Organization | [facility] | + + + | Address | Unknown | + + + | Phone | Unavailable | + + + Support + + + + + | Name | Relationship | Address | Phone | + + + + + | Rachel Valencia | [address] | [place] | | | | | [address] | | + + + + + Care Team Providers + +------+ + | Care Print Traffic Manager Name | Role | Phone | + +------+ + PCP | Unavailable | + +------+ + Encounter Details +--------+ + + + + | Date | Type | Department | Care Team | Description | +--------+ + + + + | 06/13/ | Office | [facility] | Note, Outpatient | Progress Note | | 2001 | Visit-Trans | MEDICINE | Clinic | | | | cribed | | | | +--------+ + + [...] documented as of this encounter Progress Notes Interface, Paramedic In - 07/19/2006 3:05 AM PDTCLINIC DATE: 06/13/2002 ORTHOPEDIC CLINIC REFERRING PHYSICIAN: Eugene Vera D.O. [address] [place] [address] Mr. Sanchez is a new patient. He is referred for consultation from Dr. Eugene Vera. SUBJECTIVE: Mr. Sanchez is here secondary to "chronic low back pain." He states that this has been present since 1984. 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 He has had persistent symptoms dating to that time and eventually was put on full disability through work compensation in 1995. He had progressed in his symptoms to the point that in 1991, he had a surgery performed by Dr. Leong with significant relief of his lower extremity pain from preop but continued backache. He states at this point, his lower extremity symptoms are more on and off and are intermittent rather than consistent. He states that his symptoms depend on his level of activity. He has difficulty with specific activity including mowing, playing with his children, sitting, driving as well as bending. Treatment has included epidural steroid injections up to 5 times a year. He has not tried chiropractic and acupuncture. He has tried significant narcotic medication which he has discontinued. He is currently taking Soma and ibuprofen. He denies tobacco or psychiatric illness. He has occasional lower extremity weakness. He denies lower extremity numbness except intermittently. He denies bowel or bladder symptoms. PAST MEDICAL HISTORY: Otherwise significant for hypertension and ulcerative colitis. PAST SURGICAL HISTORY: Significant for low back surgery in 1991 as well as a sinus procedure. MEDICATIONS: Zestril, Lipitor, ibuprofen, and Soma. MEDICAL ALLERGIES: BIAXIN AND PENICILLIN. PSYCHOSOCIAL HISTORY: He is fully disabled as described above. He denies smoking, alcohol, or non-medical drug use. He does relate a history of depression. REVIEW OF SYSTEMS: Otherwise positive for hypertension, chest pain, shortness of breath, and diarrhea or constipation. FAMILY HISTORY: Significant for colon and prostate cancer and MIs. PHYSICAL EXAMINATION GENERAL: He is a well-formed and well-nourished gentleman in no acute distress. He appears his stated age. Affect is somewhat flattened. VITAL SIGNS: Blood pressure of 140/70, pulse of 80, and weight of 235. BACK: Low back demonstrates no skin changes or areas of induration. There is a healed midline incision. His flexibility is completely normal on flexion, extension, lateral bend, and axial rotation. Jaron signs are all negative x 4. NEUROLOGIC: Lower extremities demonstrates 5/5 muscle strength in all motor groups. Deep tendon reflexes are 2+ in knees and ankles. Toes are downgoing. There is no fullness. Sensation is grossly intact to light touch throughout. DIAGNOSTIC DATA: Review of his MRI demonstrates profound degenerative disk disease involving L4-5 and L5-S1. There is complete collapse of the L5-S1 disk which appears to be the location of his prior diskectomy. There is relatively little canal compromised despite the collapse described. There is no deformity of note. ASSESSMENT: Mr. 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 RECOMMENDATIONS: My recommendation would be for nonsurgical treatment. I think he is going to continue epidural steroid injections as currently. If he eventually came to surgery, I would recommend consideration for a spinal fusion. In my opinion, I would recommend prior to surgery that he undergo a diskogram to evaluate the pain generation at the L4-5 and L5-S1 disk. If this proved positive, I would recommend him for an interbody fusion at L4-5 and L5-S1 with pedicle screw instrumentation posteriorly. I will not schedule a return appointment at this time. He is going to consider these issues and will call us if he desires to proceed. Martell Allen M.D. / [id number] / [id number] / [id number] / [id number] cc: Eugene Vera D.O. [address] [facility] [place]. [place] [id number] signed by Interface, Paramedic In at 07/19/2006 3:0 5 AM PDTdocumented in this encounter Plan of Treatment Not on filedocumented as of this encounter Visit Diagnoses Not on filedocumented in this encounter
--- OUTSIDE RECORDS SUMMARY | ~2020-08-06 | XMS | Encounter Summary ---
Demographics + + + | Address | [address] | | | [place] [address] | + + + | Home Phone [...] Team Providers + +------+ + | Care Experimental Box Tester Name | Role | Phone | + +------+ + | Kirk French MD | PCP | | + +------+ + Reason for Visit + + + | Reason | Comments | + + + | Device Check | | | (Remote) | | + + + Encounter Details +--------+ + + + + | Date | Type | Department | Care Team | Description | +--------+ + + + + | 05/21/ | Implant | [facility] | Daljit Singletary, | Remote Device | | 2019 | Monitor | CARDIOLOGY [address] | MD [address] | Interrogation | | | | [place], | [place], | (Primary Dx); | | | | [place] [address] | [place] [address] | Pacemaker; | | | | [phone] | [phone] | Sinoatrial node | | | | [...] encounter Procedure Notes Daljit Singletary MD - 05/21/2019 11:59 PM PDTAssociated Order(s): DEVICE INTERROGATION- R EMOTEProcedure(s): DEVICE INTERROGATION- REMOTEPre-Procedure Diagnose(s): Pacemaker reprogra mming/check; Pacemaker; Sinoatrial node dysfunction (HCC)Date of Remote Interrogation: Refer to Paceart documentation and remote PDF scanned into [employer] for remote interrogation re sults. Data collected by ABDOUL WINTER RN Presenting rhythm: atrial paced ventricular sensed with rate at 79-80 beats. 0 mode switch episodes accounting for 0% of the time. 0 atrial high rate episodes. 0 ventricular high rate episodes. PVC singles 234 PVC singles/month 0 PVC runs 0 PVC runs/month Histogram good Battery longevity 20 months. Apparent normal and stable device function. Device interrogation due in office in 08/2019 Patient notified. documented in this encounter Plan of Treatment +--------+ + + + + | Date | Type | Specialty | Care Team | Description | +--------+ + + + + | 08/21/ | Implant | Cardiology | Daljit Singletary, | Remote Device | | 2019 | Monitor | | MD [address] | Interrogation | | | | | [place], | (Primary Dx); | | | | | [place] [address] | Pacemaker; | | | | | [phone] | Sinoatrial node | | | | | | dysfunction (HCC) | | | | | | with symptomatic | | | | | | bradycardia | +--------+ + + + + | 08/21/ | Implant | Cardiology | Daljit Singletary, | Remote Device | | 2019 | Monitor | | MD [address] | Interrogation | | | | | [place], | (Primary Dx); | | | | | [place] [address] | Pacemaker; | | | | | [phone] | Sinoatrial node | | | | | | dysfunction (HCC) | | | | | | with symptomatic | | | | | | bradycardia | +--------+ + + + + | 08/21/ | Implant | Cardiology | Daljit Singeltary, | Remote Device | | 2020 | Monitor | | MD [address] | Interrogation | | | | | [place], | (Primary Dx); | | | | | [place] [address] | Pacemaker; | | | | | [phone] | Sinoatrial node | | | | | | dysfunction (HCC) | | | | | | with symptomatic | | | | | | bradycardia | +--------+ + + + + | 08/21/ | Implant | Cardiology | Daljit Singletary, | Remote Device | | 2019 | Monitor | | MD [address] | Interrogation | | | | | [place], | (Primary Dx); | | | | | [place] [address] | Pacemaker; | | | | | [phone] | Sinoatrial node | | | | | | dysfunction (HCC) | | | | | | with symptomatic | | | | | | bradycardia | +--------+ + + + + | 08/21/ | Implant | Cardiology | SunshinecherelleDaljit, | Remote Device | | 2019 | Monitor | | [address] | Interrogation | | | | | [place], | (Primary Dx); | | | | | [place] [address] | Pacemaker; | | | | | [phone] | Sinoatrial node | | | | [...] W | | | | | | [place], | | | | | | [place] [address] | | | | | | [phone] | | | | | | | | +--------+ + + + + documented as of this encounter Procedures + +--------+ + + + | Procedure Name | Priori | Date/Time | Associated Diagnosis | Comments | | | ty | | | | + +--------+ + + + | DEVICE | Routin | 05/21/2019 | Remote Device | Results for this [...] this encounter Results Device Interrogation - Remote (05/21/2019 11:59 PM PDT) + + + | Narrative | Performed At | + + + | Daljit | [facility] | | MD [facility] 06/14/2019 14:29Date of Remote Interrogation: | | | 05/06/19 Refer to Paceart documentation and remote PDF scanned into | | | [facility] for remote interrogation results. Data collected by ABDOUL Fitzpatrick | | | [place] WINTER Presenting rhythm: atrial paced ventricular sensed with | | | rate at 79-80 beats. 0 mode switch episodes accounting for 0% of the | | | time.0 atrial high rate episodes. 0 ventricular high rate episodes. | | | PVC singles 234 PVC singles/month0 PVC runs | | | 0 PVC runs/monthHistogram good Battery longevity 20 | | | months.Apparent normal and stable device function.Device interrogation | | | due in office in 08/2019Patient notified. | | |0 ventricular high rate episodes. | | |PVC singles 234 PVC singles/month | | |0 PVC runs 0 PVC runs/month | | |Histogram good Battery longevity 20 months. | | |Apparent normal and stable device function. | | |Device interrogation due in office in 08/2019 | | |Patient notified. | | | | | | | [...]
--- OUTSIDE RECORDS SUMMARY | ~2020-08-06 | XMS | Clinical Summary ---
Demographics + + + | Address | [address] [place] [address] | | | [place] [address] | + + + | Home Phone | | + + + | Preferred Language | Unknown | + + + | Marital Status | | + + + | Worship Affiliation | Unknown | + + + | Race | White | + + + | Ethnic Group | Not or | + + + Author + + + | Author | [facility] | + + + | Organization | [facility] | + + + | Address | Unknown | + + + | Phone | Unavailable | + + + Support + + + + + | Name | Relationship | Address | Phone | + + + + + | Rachel Valencia | ECON | [place] | | | | | [address] | | + + + + + Care Team Providers + +------+ + | Care Track Patrol Name | Role | Phone | + +------+ + | Darion Holden DO | PCP | | + +------+ + Source Comments IVETTE is fully live on both EpicCare Ambulatory and EpicCare InPatient.[facility] Allergies + + + + + + | Active Allergy | Reactions | Severity | Noted | Comments | | | | | Date | | + + + + + + | Clarithromycin | | | 02/04/20 | | | | | | 11 | | + + + + + + | Nortriptyline | Emotional | | 12/07/19 | Irritability and | | | Disturbance | | 20 | anger | + + + + + + | Penicillins | | | 02/04/20 | | | | | | 11 | | + + + + + + | Hydrocodone-Acetamin | | | 02/04/20 | | | ophen | | | 11 | | + + + + + + Medications + + + +---------+------+------+-------+ | Medication | Sig | Dispensed | Refills | Star | End | Statu | | | | | | t | Date | s | | | | | | Date | | | + + + +---------+------+------+-------+ | oxyCODONE, | Take by mouth. 1-2 | | 0 | 03/1 | | Activ | | immediate release, | tablets every 4-6 | | | 5/20 | | e | | 30 mg Oral Tablet | hours | | | 11 | | | + + + +---------+------+------+-------+ | HYDROmorphone | Take by mouth. 1-2 | | 0 | | | Activ | | (DILAUDID) 4 mg Oral | every 4-6 hours | | | | | e | | Tablet | | | | | | | + + + +---------+------+------+-------+ | oxyCODONE CR | Take by mouth. 2 | | 0 | 03/1 | | Activ | | (OXYCONTIN) 20 mg | tablets two to three | | | 5/20 | | e | | Oral Tablet Extended | times daily | | | 11 | | | | Release 12 hr | | | | | | | + + + +---------+------+------+-------+ | metoprolol | Take 50 mg by mouth | | 0 | | | Activ | | tartrate 50 mg Oral | two times daily. | | | | | e | | Tablet | | | | | | | + + + +---------+------+------+-------+ | lisinopril | Take 10 mg by mouth | | 0 | | | Activ | | (ZESTRIL) 20 mg Oral | once daily. 11/23 | | | | | e | | Tablet | tablet at bedtime | | | | | | + + + +---------+------+------+-------+ | Aspirin 81 mg Oral | Take 81 mg by mouth | | 0 | | | Activ | | Tablet | once daily. | | | | | e | + + + +---------+------+------+-------+ | ASCORBIC ACID | Take 1 Tab by mouth | | 0 | 03/1 | | Activ | | (VITAMIN C ORAL) | once daily. | | | 5/20 | | e | | | | | | 11 | | | + + + +---------+------+------+-------+ | MULTI-VITAMIN ORAL | Take 1 Tab by mouth | | 0 | 03/1 | | Activ | | | once daily. | | | 5/20 | | e | | | | | | 11 | | | + + + +---------+------+------+-------+ | SALMON OIL/OMEGA-3 | Take 2 Caps by mouth | | 0 | 03/1 | | Activ | | FATTY ACIDS (SALMON | once daily. | | | 5/20 | | e | | OIL-1000 ORAL) | | | | 11 | | | + + + +---------+------+------+-------+ | acyclovir 5 % | Apply to affected | | 0 | 08/2 | | Activ | | topical ointment | area. | | | 2/20 | | e | | | | | | 17 | | | + + + +---------+------+------+-------+ | amLODIPine 5 mg | Take 5 mg by mouth. | | 0 | 04/0 | | Activ | | oral tablet | | | | 2/20 | | e | | | | | | 19 | | | + + + +---------+------+------+-------+ | atorvastatin 20 mg | Take 20 mg by mouth. | | 0 | 03/1 | | Activ | | oral tablet | | | | 1/20 | | e | | | | | | 19 | | | + + + +---------+------+------+-------+ | clonazePAM 1 mg | Take 1 mg by mouth. | | 0 | 10/0 | | Activ | | oral tablet | | | | 9/20 | | e | | | | | | 18 | | | + + + +---------+------+------+-------+ | dicyclomine 20 mg | Take 20 mg by mouth. | | 0 | 02/0 | | Activ | | oral tablet | | | | 4/20 | | e | | | | | | 19 | | | + + + +---------+------+------+-------+ | diphenhydrAMINE 25 | Take 25 mg by mouth. | | 0 | 04/1 | | Activ | | mg oral capsule | | | | 8/20 | | e | | | | | | 12 | | | + + + +---------+------+------+-------+ | | Take 1,000 mg by | | 0 | 03/0 | | Activ | | Methylsulfonylmethan | mouth. | | | 20 | | e | | e 1,000 mg oral | | | | 18 | | | | tablet | | | | | | | + + + +---------+------+------+-------+ | metoprolol | TAKE ONE TABLET BY | | 0 | 08/0 | | Activ | | succinate 100 mg | MOUTH EVERY DAY | | | 620 | | e | | oral tablet extended | | | | 18 | | | | release 24 hr | | | | | | | + + + +---------+------+------+-------+ | nitroglycerin | Take 0.4 mg by | | 0 | 11/2 | | Activ | | (NITROSTAT) 0.4 mg | mouth. | | | 220 | | e | | sublingual tablet, | | | | 16 | | | | sublingual | | | | | | | + + + +---------+------+------+-------+ | ondansetron 4 mg | Take 4 mg by mouth. | | 0 | 02/2 | | Activ | | oral tablet | | | | 6/20 | | e | | | | | | 19 | | | + + + +---------+------+------+-------+ | rOPINIRole 1 mg | Take by mouth. | | 0 | 07/0 | | Activ | | oral tablet | | | | 3/20 | | e | | | | | | 15 | | | + + + +---------+------+------+-------+ | valACYclovir 1 g | Take 1,000 mg by | | 0 | 01/0 | | Activ | | oral tablet | mouth. | | | 8/20 | | e | | | | | | 18 | | | + + + +---------+------+------+-------+ | cinnamon bark | Take by mouth. | | 0 | | | Activ | | (CINNAMON ORAL) | | | | | | e | + + + +---------+------+------+-------+ | CYANOCOBALAMIN | Take by mouth. | | 0 | | | Activ | | (VITAMIN B-12) ORAL | | | | | | e | + + + +---------+------+------+-------+ | pyridoxine HCl | Take by mouth. | | 0 | | | Activ | | (vitamin B6) | | | | | | e | | (VITAMIN B-6 ORAL) | | | | | | | + + + +---------+------+------+-------+ | elderberry fruit | Take by mouth. | | 0 | | | Activ | | (ELDERBERRY OR) | | | | | | e | + + + +---------+------+------+-------+ | hyoscyamine 0.125 | Place 1 tablet under | 360 | 2 | 12/0 | | Activ | | mg sublingual | tongue four times | tablet | | 5/20 | | e | | tablet, | daily. Indications: | | | 19 | | | | sublingualIndication | diarrhea | | | | | | | s: diarrhea | | | | | | | + + + +---------+------+------+-------+ | | Take 2 tablets by | 240 | 2 | 12/0 | | Activ | | diphenoxylate-atropi | mouth four times | tablet | | 5/20 | | e | | ne 2.5-0.025 mg oral | daily as needed. | | | 19 | | | | tabletIndications: | | | | | | | | Diarrhea, | | | | | | | | unspecified type, | | | | | | | | Abdominal cramping | | | | | | | + + + +---------+------+------+-------+ Active Problems + + + | Problem | Noted Date | + + + | Bradycardia | 02/09/2011 | + + + | Pacemaker Medtronic dual chamber | 02/09/2011 | + + + Encounters +--------+ + + + + | Date | Type | Specialty | Care Team | Description | +--------+ + + + + | 06/17/ | Telephone | Gastroenterology | Bridgette Rios, | Other (VM) | | 2019 | | | MD | | +--------+ + + + + | 05/08/ | Telephone | Gastroenterology | Bridgette Rios, | Other | | 2019 | | | MD | | +--------+ + + + + from Last 3 Months Social History + +-------+ +--------+ + | [...] on file | | + + + Last Filed Vital Signs + + + + + | Vital Sign | Reading | Time Taken | Comments | + + + + + | Blood Pressure | 147/89 | 09/28/2019 3:07 PM | | | | | PST | | + + + + + | Pulse | 76 | 09/28/2019 3:07 PM | | | | | PST | | + + + + + | Temperature | 37.2 C (98.9 F) | 02/03/2011 1:44 PM | | | | | PDT | | + + + + + | Respiratory Rate | 14 | 09/28/2019 3:07 PM | | | | | PST | | + + + + + | Oxygen Saturation | 97% | 02/03/2011 1:44 PM | | | | | PDT | | + + + + + | Inhaled Oxygen | - | - | | | Concentration | | | | + + + + + | Weight | 98.9 kg (218 lb) | 09/28/2019 3:07 PM | Reported by patient | | | | PST | | + + + + + | Height | 193 cm (6' 4") | 09/28/2019 3:07 PM | | | | | PST | | + + + + + | Body Mass Index | 26.54 | 09/28/2019 3:07 PM | | | | | PST | | + + + + + Plan of Treatment + + + + + | Health Maintenance | Due Date | Last | Comments | | | | Done | | + + + + + | Pneumococcal | | | | | vaccination (1 of 1 | 5 | | | | - PPSV23) | | | | + + + + + | Influenza (Flu) | | 07/23/20 | | | vaccination (#1) | 0 | 16, | | | | | 06/24/20 | | | | | 15, | | | | | 09/10/20 | | | | | 09, | | | | | Addition | | | | | al | | | | | history | | | | | exists | | + + + + + Results Not on filefrom Last 3 Months Insurance + +--------+ +--------+ + +--------+ | Payer | Benefi | Subscriber | Effect | Phone | Address | Type | | | t Plan | ID | rudolph | | | | | | / | | Dates | | | | | | Group | | | | | | + +--------+ +--------+ + +--------+ | MEDICARE | MEDICA | [id number] | 11/22/19 | [phone] | [address] | Medica | | | RE A & | | 10-Pre | 1 | [phone] | re | | | B | | sent | | [place], [place] | | | | | | | | [address] | | + +--------+ +--------+ + +--------+ | [employer] | AARP | [id number] | 11/22/19 | [phone] | [address] | Indemn | | RETIRED PEOPLE | | | 10-Pre | 9 | [id number] | ity | | | | | sent | | [place] | | | | | | | | [address] | | + +--------+ +--------+ + +--------+ + +--------+ +--------+ + + | Guarantor Name | Accoun | Relation to | Date | Phone | Billing Address | | | t Type | Patient | of | | | | | | | | | | + +--------+ +--------+ + + | Moe Sanchez | Person | Self [birth year] | [phone] | | | al/Per | | 1960 | [phone] | [place] | | | roxanne | | | 8 (Home) | [phone] | + +--------+ +--------+ + + Advance Directives + + + + + | Type | Date Recorded | Patient | Explanation | | | | 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
--- OUTSIDE RECORDS SUMMARY | ~2020-08-06 | XMS | Encounter Summary ---
Demographics + + + | Address | [address] | | | [place] [address] | + + + | Home Phone [...] Providers + +------+ + | Care Sales Representative Wire Rope Name | Role | Phone | + +------+ + PCP | Unavailable | + +------+ + Encounter Details +--------+ + + + + | Date | Type | Department | Care Team | Description | +--------+ + + + + | 08/01/ | Hospital | [facility] OP | Conversion | | | 2001 | Encounter | CONVERSION | Transaction, | | | | | DEPARTMENT [address] | Provider Unknown | | | | | [address] | | | | | | [place], [place] | (Fax) | | | | | [address] | | | | | | [phone] | | | +--------+ + + + [...] | Monitor | | MD [address] | Interrogation | | | | | [place], | (Primary Dx); | | | | | [place] [address] | Pacemaker; | | | | | [phone] | Sinoatrial node | | | | | | dysfunction (HCC) | | | | | | with symptomatic | | | | | | bradycardia | +--------+ + + + + | 08/21/ | Implant | Cardiology | Daljit Singletary, | Remote Device | | 2019 | Monitor | | MD [address] | Interrogation | | | | | [place], | (Primary Dx); | | | | | [place] [address] | Pacemaker; | | | | | [phone] | Sinoatrial node | | | | | | dysfunction (HCC) | | | | | | with symptomatic | | | | | | bradycardia | +--------+ + + + + | 08/21/ | Implant | Cardiology | Daljit Singletary, | Remote Device | | 2019 | Monitor | | MD [address] | Interrogation | | | | | [place], | (Primary Dx); | | | | | [place] [address] | Pacemaker; | | | | | [phone] | Sinoatrial node | | | | | | dysfunction (HCC) | | | | | | with symptomatic | | | | | | bradycardia | +--------+ + + + + | 08/21/ | Implant | Cardiology | Daljit Singletary, | Remote Device | | 2019 | Monitor | | MD [address] | Interrogation | | | | | [place], | (Primary Dx); | | | | | [place] [address] | Pacemaker; | | | | | [phone] | Sinoatrial node | | | | | | dysfunction (HCC) | | | | | | with symptomatic | | | | | | bradycardia | +--------+ + + + + | 08/21/ | Implant | Cardiology | Daljit Singletary, | Remote Device | | 2020 | Monitor | | MD [address] | Interrogation | | | | | [place], | (Primary Dx); | | | | | [place] [address] | Pacemaker; | | | | | [phone] | Sinoatrial node | | | | [...] | | | | | | [place] [address] | | | | | | [phone] | | | | | | | | +--------+ + + + + documented as of this encounter Visit Diagnoses Not on filedocumented in this encounter"
--- OUTSIDE RECORDS SUMMARY | ~2020-08-06 | XMS | Encounter Summary ---
Demographics + + + | Address | [address] | | | [place] [address] | + + + | Home Phone [...] Team Providers + +------+ + | Care Travel Consultant Name | Role | Phone | + +------+ + | Darion Holden DO | PCP | | + +------+ + Encounter Details +--------+ + + + + | Date | Type | Department | Care Team | Description | +--------+ + + + + | 08/05/ | Hospital | [facility] | Emmanuel Daniel MD | | | 2009 | Encounter | MED CTR XRAY [address] | [address], [place] | | | | | [address] [place] | [address] [place], [place] | | | | | [place] [address] | [address] | | | | | [phone] | | | +--------+ + + + [...] 2019 | Monitor | | [address] | Interrogation | | | | | [place], | (Primary Dx); | | | | | [place] [address] | Pacemaker; | | | | | [phone] | Sinoatrial node | | | | | | dysfunction (HCC) | | | | | | with symptomatic | | | | | | bradycardia | +--------+ + + + + | 08/21/ | Implant | Cardiology | Daljit Singletary, | Remote Device | | 2020 | Monitor | | MD [address] | Interrogation | | | | | [place], | (Primary Dx); | | | | | [place] [address] | Pacemaker; | | | | | [phone] | Sinoatrial node | | | | | | dysfunction (HCC) | | | | | | with symptomatic | | | | | | bradycardia | +--------+ + + + + | 08/21/ | Implant | Cardiology | Daljit Singletary, | Remote Device | | 2019 | Monitor | | MD [address] | Interrogation | | | | | [place], | (Primary Dx); | | | | | [place] [address] | Pacemaker; | | | | | [phone] | Sinoatrial node | | | | | | dysfunction (HCC) | | | | | | with symptomatic | | | | | | bradycardia | +--------+ + + + + | 08/21/ | Implant | Cardiology | Daljit Singletary, | Remote Device | | 2019 | Monitor | | MD [address] | Interrogation | | | | | [place], | (Primary Dx); | | | | | [place] [address] | Pacemaker; | | | | | [phone] | Sinoatrial node | | | | | | dysfunction (HCC) | | | | | | with symptomatic | | | | | | bradycardia | +--------+ + + + + | 08/21/ | Implant | Cardiology | Daljit Singletary, | Remote Device | | 2019 | Monitor | | MD [address] | Interrogation | | | | | [place], | (Primary Dx); | | | | | [place] [address] | Pacemaker; | | | | | [phone] | Sinoatrial node | | | | [...] | | | | | | [place], | | | | | | [place] [address] | | | | | | [phone] | | | | | | | | +--------+ + + + + documented as of this encounter Visit Diagnoses Not on filedocumented in this encounter"
--- OUTSIDE RECORDS SUMMARY | ~2020-08-06 | XMS | Encounter Summary ---
Demographics + + + | Address | [address] | | | [place] [address] | + + + | Home Phone [...] Team Providers + +------+ + | Care Pediatric Clinical Nurse Specialist Name | Role | Phone | + +------+ + | Kirk French MD | PCP | | + +------+ + Reason for Visit + +--------+ + | Reason | Onset | Comments | | | Date | | + +--------+ + | Chest Pain | 06/20/ | | | | 2018 | | + +--------+ + Encounter Details +--------+ + + + + | Date | Type | Department | Care Team | Description | +--------+ + + + + | 06/20/ | Telephone | [facility] | Daljit Singletary, | Chest Pain | | 2018 | | CARDIOLOGY [address] | [address] [place] | | | | | [place], | [place], | | | | | [place] [address] | [place] [address] | | | | | [phone] | | | | | | | [...] this encounter Miscellaneous Notes Telephone Encounter - Heidi Tejeda - 06/21/2018 2:56 PM PDTPatient scheduled to see Dr. Brasher 06/27/18 at 1:30pm P DTTelephone Encounter - Mariana Valentine RN - 06/21/2018 2:42 PM PDTPatient came to off ice after being in ED requesting appointment next week. Spoke to patient on phone, he stated that the ED doctor said everything was fine, he need a 48 hour holter monitor, he did not w ant to stay. Appointment made for Wednesday, patient declined appointment. I asked PSR"s to zena e appointment for the next week ..........................................Mariana Valentine RN on 06/21/18 at 14:47 elephone Encount er - Dileep Negrete RN - 06/20/2018 4:49 PM PDTPatient called and states that he has been having chest pain with a fluttering feeling in his heart. The pain is sharp and has con tinued for 10min despite taking a nitro. States he has had this on and off for the past coup le months but it is getting longer at a time. Advised he go to ER to be evaluated. He states he refuses to go to [facility] so he will come here. I stated he needs to have somebody d rive him if he comes over here. He will find a crew car driver and take another nitro to see if it he lps and will come to the ER here. Electronically signed by Dileep Negrete RN at 018 4:58 PM PDTdocumented in this encounter Plan of Treatment +--------+ + + + + | Date | Type | Specialty | Care Team | Description | +--------+ + + + + | 08/21/ | Implant | Cardiology | Daljit Singletary, | Remote Device | | 2020 | Monitor | | [address] [facility] [place] [place] | Interrogation | | | | | [place], | (Primary Dx); | | | | | [place] [address] | Pacemaker; | | | | | [phone] | Sinoatrial node | | | | | | dysfunction (HCC) | | | | | | with symptomatic | | | | | | bradycardia | +--------+ + + + + | 08/21/ | Implant | Cardiology | Daljit Singletary, | Remote Device | | 2019 | Monitor | | MD [address] | Interrogation | | | | | [place], | (Primary Dx); | | | | | [place] [address] | Pacemaker; | | | | | [phone] | Sinoatrial node | | | | | | dysfunction (HCC) | | | | | | with symptomatic | | | | | | bradycardia | +--------+ + + + + | 08/21/ | Implant | Cardiology | Daljit Singletary, | Remote Device | | 2019 | Monitor | | MD [address] | Interrogation | | | | | [place], | (Primary Dx); | | | | | [place] [address] | Pacemaker; | | | | | [phone] | Sinoatrial node | | | | | | dysfunction (HCC) | | | | | | with symptomatic | | | | | | bradycardia | +--------+ + + + + | 08/21/ | Implant | Cardiology | Daljit Singletary, | Remote Device | | 2020 | Monitor | | MD [address] | Interrogation | | | | | [place], | (Primary Dx); | | | | | [place] [address] | Pacemaker; | | | | | [phone] | Sinoatrial node | | | | | | dysfunction (HCC) | | | | | | with symptomatic | | | | | | bradycardia | +--------+ + + + + | 08/21/ | Implant | Cardiology | Daljit Singletary, | Remote Device | 2019 | Monitor | | [address] [place] | Interrogation | | | | | [place], | (Primary Dx); | | | | | [place] [address] | Pacemaker; | | | | | [phone] | Sinoatrial node | | | | [...] [address] | | | | | | [place], | | | | | | [place] [address] | | | | | | [phone] | | | | | | | | +--------+ + + + + documented as of this encounter Visit Diagnoses Not on filedocumented in this encounter
--- OUTSIDE RECORDS SUMMARY | ~2020-08-06 | XMS | Encounter Summary ---
Demographics + + + | Address | [address] | | | [place] [address] | + + + | Home Phone [...] Team Providers + +------+ + | Care Maintenance Coordinator Name | Role | Phone | + +------+ + | Kirk French MD | PCP | | + +------+ + Reason for Visit +--------+--------+ + | Reason | Onset | Comments | | | Date | | +--------+--------+ + | Other | 09/30/ | [place] remote | | | 2018 | | +--------+--------+ + Encounter Details +--------+ + + + + | Date | Type | Department | Care Team | Description | +--------+ + + + + | 09/30/ | Telephone | [facility] | [facility], | Other ([place] | | 2017 | | [place] [address] | remote) | | | | [place], | [place], | | | | | [place] [address] | [place] [address] | | | | | [phone] | [phone] | | | | | | | [...] this encounter Miscellaneous Notes Telephone Encounter - Shabana Lama RN - 10/05/2018 3:31 PM PSTReceived report 09/30/20 18. Electronically signed by: Shabana Lama RN 10/05/2018 15:32 elephone Encounter - Shabana Lama RN - 09/30/2018 10:53 AM PSTLeft voice message that we have not received [employer] remote pacemaker report this week. Requested to please return call so that we can assist him as needed with sending in a report. Electronically signed by: Shabana Lama RN 09/30/2018 10:55 documented in this e ncounter Plan of Treatment +--------+ + + + + | Date | Type | Specialty | Care Team | Description | +--------+ + + + + | 08/21/ | Implant | Cardiology | Daljit Singletary, | Remote Device | | 2019 | Monitor | | MD [address] | Interrogation | | | | | [place], | (Primary Dx); | | | | | [place] [address] | Pacemaker; | | | | | [phone] | Sinoatrial node | | | | | | dysfunction (HCC) | | | | | | with symptomatic | | | | | | bradycardia | +--------+ + + + + | 08/21/ | Implant | Cardiology | Daljit Singletary, | Remote Device | | 2019 | Monitor | | MD [address] | Interrogation | | | | | [place], | (Primary Dx); | | | | | [place] [address] | Pacemaker; | | | | | [phone] | Sinoatrial node | | | | | | dysfunction (HCC) | | | | | | with symptomatic | | | | | | bradycardia | +--------+ + + + + | 08/21/ | Implant | Cardiology | Daljit Singletary, | Remote Device | | 2019 | Monitor | | MD [address] | Interrogation | | | | | [place], | (Primary Dx); | | | | | [place] [address] | Pacemaker; | | | | | [phone] | Sinoatrial node | | | | | | dysfunction (HCC) | | | | | | with symptomatic | | | | | | bradycardia | +--------+ + + + + | 08/21/ | Implant | Cardiology | Daljit Singletary, | Remote Device | | 2019 | Monitor | | MD [address] | Interrogation | | | | | [place], | (Primary Dx); | | | | | [place] [address] | Pacemaker; | | | | | [phone] | Sinoatrial node | | | | | | dysfunction ([facility]) | | | | | | with symptomatic | | | | | | bradycardia | +--------+ + + + + | 08/21/ | Implant | Cardiology | Daljit Singletary, | Remote Device | | 2019 | Monitor | | MD [address] | Interrogation | | | | | [place], | (Primary Dx); | | | | | [place] [address] | Pacemaker; | | | | | [phone] | Sinoatrial node | | | | | | dysfunction ([facility]) | | | | | | [...] | | | | | | [place] [address] | | | | | | [phone] | | | | | | | | +--------+ + + + + documented as of this encounter Visit Diagnoses Not on filedocumented in this encounter"
--- OUTSIDE RECORDS SUMMARY | ~2020-08-06 | XMS | Encounter Summary ---
Demographics + + + | Address | [address] | | | [place] [address] | + + + | Home Phone [...] Team Providers + +------+ + | Care Community Living Specialist Name | Role | Phone | [...] | on | GASTROENTEROLOGY | [address], [place] | | | | | [address] [place] | [address] [place], [place] | | | | | [address] [place], [place] | [address] | | | | | [address] | | | | | | [phone] | | | +--------+ + + + [...] | | [facility] | Interrogation | | | | | [facility], | (Primary Dx); | | | | | [place] [address] | Pacemaker; | | | | | [phone] | Sinoatrial node | | | | | | dysfunction (HCC) | | | | | | with symptomatic | | | | | | bradycardia | +--------+ + + + + | 08/21/ | Implant | Cardiology | Daljit Singletary, | Remote Device | | 2019 | Monitor | | MD [address] | Interrogation | | | | | [place], | (Primary Dx); | | | | | [place] [address] | Pacemaker; | | | | | [phone] | Sinoatrial node | | | | | | dysfunction (HCC) | | | | | | with symptomatic | | | | | | bradycardia | +--------+ + + + + | 08/21/ | Implant | Cardiology | Daljit Singletary, | Remote Device | | 2019 | Monitor | | MD [address] | Interrogation | | | | | [place], | (Primary Dx); | | | | | [place] [address] | Pacemaker; | | | | | [phone] | Sinoatrial node | | | | | | dysfunction (HCC) | | | | | | with symptomatic | | | | | | bradycardia | +--------+ + + + + | 08/21/ | Implant | Cardiology | Daljit Singletary, | Remote Device | | 2019 | Monitor | | MD [address] | Interrogation | | | | | [place], | (Primary Dx); | | | | | [place] [address] | Pacemaker; | | | | | [phone] | Sinoatrial node | | | | | | dysfunction (HCC) | | | | | | with symptomatic | | | | | | bradycardia | +--------+ + + + + | 08/21/ | Implant | Cardiology | Daljit Singletary, | Remote Device | 2019 | Monitor | | MD [address] | Interrogation | | | | | [place], | (Primary Dx); | | | | | [place] [address] | Pacemaker; | | | | | [phone] | Sinoatrial node | | | | [...] [address] | | | | | | [place], | | | | | | [place] [address] | | | | | | [phone] | | | | | | | | +--------+ + + + + documented as of this encounter Visit Diagnoses Not on filedocumented in this encounter"
--- OUTSIDE RECORDS SUMMARY | ~2020-08-06 | XMS | Encounter Summary ---
Demographics + + + | Address | [address] [place] [address] [address] | | | [place] [address] | + + + | Home Phone | | + + + | Preferred Language | Unknown | + + + | Marital Status | | + + + | Hindu Affiliation | Unknown | + + + [...] [place] | | | | | [address] | | + + + + + Care Team Providers + +------+ + | Care Government Contracts Manager Name | Role | Phone | [...] | | | | [address] [place] | [place], [place] | | | | | for Health and | [address] | | | | | Healing, [address] | [phone] | | | | | [place], [place] | | | | | | [address] | | | | | | [phone] | | | +--------+ + + + [...] Telephone Encounter - Allyson Diehl RN - 10/23/2019 4:05 PM PSTSeaster 10/18/19 encounter for further documentation. elephone Encounter - Kole Cobb - 10/23/2019 3:40 PM PSTMon 10/23/2019 2:27 PM the patient LVM: He's been sicker than a dog since prior to and needs our help. documented in this encounter Plan of Treatment Not on filedocumented as of this encounter Visit Diagnoses Not on filedocumented in this encounter"
--- OUTSIDE RECORDS SUMMARY | ~2020-08-06 | XMS | Encounter Summary ---
Demographics + + + | Address | [address] | | | [place] [address] | + + + | Home Phone [...] Providers + +------+ + | Care Clinical Team Lead Name | Role | Phone | + +------+ + | Kirk French MD | PCP | | + +------+ + Encounter Details +--------+ + + + + | Date | Type | Department | Care Team | Description | +--------+ + + + + | 06/03/ | Hospital | [facility] | Conversion | Back pain, | | 2015 | Encounter | CONVERSION DEP [address] | Transaction, | unspecified location | | | | [address] | Provider Unknown | | | | | [place], [place] | [phone] | | | | | [address] | | | | | | [phone] | | | +--------+ + + + [...] + + + +---------+ + + | [place] Fatty | CAPS, one capsule by | [...] | | | | | | | #[id number], exp 07/2016 | | | | | [...] | Monitor | | MD [address] | Interrogation | | | | | [place], | (Primary Dx); | | | | | [place] [address] | Pacemaker; | | | | | [phone] | Sinoatrial node | | | | | | dysfunction (HCC) | | | | | | with symptomatic | | | | | | bradycardia | +--------+ + + + + | 08/21/ | Implant | Cardiology | Daljit Singletary, | Remote Device | | 2019 | Monitor | | MD [address] | Interrogation | | | | | [place], | (Primary Dx); | | | | | [place] [address] | Pacemaker; | | | | | [phone] | Sinoatrial node | | | | | | dysfunction (HCC) | | | | | | with symptomatic | | | | | | bradycardia | +--------+ + + + + | 08/21/ | Implant | Cardiology | Daljit Singletary, | Remote Device | | 2020 | Monitor | | MD [address] | Interrogation | | | | | [place], | (Primary Dx); | | | | | [place] [address] | Pacemaker; | | | | | [phone] | Sinoatrial node | | | | | | dysfunction (HCC) | | | | | | with symptomatic | | | | | | bradycardia | +--------+ + + + + | 08/21/ | Implant | Cardiology | Daljit Singletary, | Remote Device | | 2019 | Monitor | | MD [address] | Interrogation | | | | | [place], | (Primary Dx); | | | | | [place] [address] | Pacemaker; | | | | | [phone] | Sinoatrial node | | | | | | dysfunction (HCC) | | | | | | with symptomatic | | | | | | bradycardia | +--------+ + + + + | 08/21/ | Implant | Cardiology | Daljit Singletary, | Remote Device | | 2019 | Monitor | | MD [address] | Interrogation | | | | | [place], | (Primary Dx); | | | | | [place] [address] | Pacemaker; | | | | | [phone] | Sinoatrial node | | | | [...] [address] | | | | | | [place], | | | | | | [place] [id number] | | | | | | [phone] | | | | | | | [...] this | | VW | e | 6:41 PM | | procedure are in the | | | | PST | | results section. | + +--------+ + + + documented in this encounter Results XR Lumbar Spine 4 + Vw (12/29/2012 6:41 PM PST) + + | Specimen | [...] + | Kalpesh Brown Conversion - 07/07/2019 5:05 AM PDT This is a non-reportable procedure | | without a radiologist report and isused for image storage only | + + documented in this encounter Visit Diagnoses + + | Diagnosis | + + | Back pain, unspecified location | + + | Remote Device Interrogation [...]
--- OUTSIDE RECORDS SUMMARY | ~2020-08-06 | XMS | Encounter Summary ---
Demographics + + + | Address | [address] [place] [address] [address] | | | [place] [address] | + + + | Home Phone | | + + + | Preferred Language | Unknown | + + + | Marital Status | | + + + | Samaritan Affiliation | Unknown | + + + | Race | White | + + + | Ethnic Group | Not or | + + + Author + + + | Author | [facility] | + + + | Organization | [facility] | + + + | Address | Unknown | + + + | Phone | Unavailable | + + + Support + + + + + | Name | Relationship | Address | Phone | + + + + + | Rachel Valencia | ELIEZER | [place] | | | | | [address] | | + + + + + Care Team Providers + +------+ + | Care Trimmer And Borer Machine Operator Name | Role | Phone [...] | | 2019 | | Center at [facility] [address] | Gastroenterology | Gastroenterology | | | | [address] [facility] | | | | | | for Health and | | | | | | [address], [address] | | | | | | [place], [place] | | | | | | [address] | | | | | | [phone] | | | +--------+ + + + [...]
--- OUTSIDE RECORDS SUMMARY | ~2020-08-06 | XMS | Encounter Summary ---
Demographics + + + | Address | [address] | | | [place] [address] | + + + | Home Phone [...] Team Providers + +------+ + | Care Shearing Supervisor Name | Role | Phone | + +------+ + | Michael Amanda DO | PCP | | + +------+ + Encounter Details +--------+ + + + + | Date | Type | Department | Care Team | Description | +--------+ + + + + | 07/25/ | Abstract | [facility] | Michael Amanda, | | | 2013 | | [facility] | DO [address] | | | | | [address] | [place] | | | | | [place] | [address] | | | | | [address] | | | | | | [phone] | | | +--------+ + + + [...] | Monitor | | MD [address] | Interrogation | | | | | [place], | (Primary Dx); | | | | | [place] [address] | Pacemaker; | | | | | [phone] | Sinoatrial node | | | | | | dysfunction (HCC) | | | | | | with symptomatic | | | | | | bradycardia | +--------+ + + + + | 08/21/ | Implant | Cardiology | Daljit Singletary, | Remote Device | | 2019 | Monitor | | MD [address] | Interrogation | | | | | [place], | (Primary Dx); | | | | | [place] [address] | Pacemaker; | | | | | [phone] | Sinoatrial node | | | | | | dysfunction (HCC) | | | | | | with symptomatic | | | | | | bradycardia | +--------+ + + + + | 08/21/ | Implant | Cardiology | Daljit Singletary, | Remote Device | | 2019 | Monitor | | MD [address] | Interrogation | | | | | [place], | (Primary Dx); | | | | | [place] [address] | Pacemaker; | | | | | [phone] | Sinoatrial node | | | | | | dysfunction (HCC) | | | | | | with symptomatic | | | | | | bradycardia | +--------+ + + + + | 08/21/ | Implant | Cardiology | Daljit Singletary, | Remote Device | | 2019 | Monitor | | MD [address] | Interrogation | | | | | [place], | (Primary Dx); | | | | | [place] [address] | Pacemaker; | | | | | [phone] | Sinoatrial node | | | | | | dysfunction (HCC) | | | | | | with symptomatic | | | | | | bradycardia | +--------+ + + + + | 08/21/ | Implant | Cardiology | Daljit Singletary, | Remote Device | | 2020 | Monitor | | MD [address] | Interrogation | | | | | [place], | (Primary Dx); | | | | | [place] [address] | Pacemaker; | | | | | [phone] | Sinoatrial node | | | | [...] | | | | | | [place] [address] | | | | | | [phone] | | | | | | | | +--------+ + + + + documented as of this encounter Visit Diagnoses Not on filedocumented in this encounter"
--- OUTSIDE RECORDS SUMMARY | ~2020-08-06 | XMS | Encounter Summary ---
Demographics + + + | Address | [address] [place] [address] [address] | | | [place] [address] | + + + | Home Phone | | + + + | Preferred Language | Unknown | + + + | Marital Status | | + + + | Taoism Affiliation | Unknown | + + + | Race | White | + + + | Ethnic Group | Not or | + + + Author + + + | Author | [facility] | + + + | Organization | [facility] | + + + | Address | Unknown | + + + | Phone | Unavailable | + + + Support + + + + + | Name | Relationship | Address | Phone | + + + + + | Rachel Valencia | ELIE[address]ER | [place] | | | | | [address] | | + + + + + Care Team Providers + +------+ + | Care Vending Technician Name | Role | Phone | [...] as of this encounter Progress Notes Interface, Computed Tomography Technician In - 07/19/2006 3:05 AM PDTCLINIC DATE: 06/13/2002 [facility] REFERRING PHYSICIAN: Eugene Vera D.O. [address] [place] [address] Mr. Sanchez is a new patient. He [...] desires to proceed. Martell Allen M.D. / [id number] / [id number] / [id number] / [id number] cc: Eugene Vear D.O. [address] [facility] [place]. [place] [id number] signed by Interface, Computed Tomography Technician In at 07/19/2006 3:0 5 AM PDTdocumented in this encounter Plan of Treatment Not on filedocumented as of this encounter Visit Diagnoses Not on filedocumented in this encounter
--- OUTSIDE RECORDS SUMMARY | ~2020-08-06 | XMS | Encounter Summary ---
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 | | | | | FUP | [place] | [place], | | | | | Procedures | [place], [place] | [place] [address] | | | | | FUP - SUW & | [address] | Phone: | | | | | EVM PT, LAST | Phone: | [phone] | | | | | SEEN | [phone] | Fax: | | | | | 08-24-18 | Fax: | [phone] | | | | | | [phone] | | +--------+ + + + + + Reason for Visit + + + | Reason | Comments | + + + | Chest Pain | | + + + Encounter Details +--------+ + + + + | Date | Type | Department | Care Team | Description | +--------+ + + + + | 01/02/ | Emergency | [facility] | Franki Pham | Chest pain, | | 2019 | | [facility] | MD Martell [address] | unspecified type | | | | CENTER [address] | [address] [place] | (Primary Dx) | | | | [place], [place] | [place] [address] | | | | | [address] | [phone] | | | | | [phone] | | | +--------+ + + + [...] through Care Everywhere.Chest Pain, Unc ertain Cause (Hungarian)documented in this encounter Medications at Time of [...] + + + +---------+ + + | Norfork-3 Fatty | CAPS, one capsule by | [...] documented as of this encounter ED Notes Franki Pham MD - 01/03/2019 12:38 AM PSTFormatting of this note might be diff erent from the original. [facility] Moe Sanchez Emergency Department Encounter Note [address] [place] [id number] PCP:Kirk French MD [phone] CHIEF COMPLAINT: Chief Complaint Patient presents with Chest Pain ED Room: ED06 [facility] Moe Sanchez is a 58 y.o. male who presents to the Emergency Department The patient presents complaining of 3/10 chest pain that was sudden in onset. It is maximal in the L portion of the chest. It is described as aching. The pain is not pleuritic is not related to respirations. The pain is positionally exacerbated. The pain is not radiating. Exacerbating factors are unknown, alleviating factors are unknown. The patient is not having chest pain on presentation. It is not substernal pressure, it is not worsened with exertion or emotional stress, it is not relieved by rest or nitroglycerin. The patient has this pain before. Associated symptoms include none. 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 The patient has had risk stratification recently. The patient denies stimulant drug use ever, IVDU ever, use, family history of OR at an age younger than 55. The patient denies history of blood cl ots, coagulation disorder, leg pain/swelling, recent surgery immobilization, cancer, estroge n use, Shortness of breath, cough, or hemoptysis. Language line sign language interpreter made available and used to collect historical [...] arrhythmia performed by Dr. Gambino at [facility] on 01/30/2013. Patient [...] to go back in 3 days to [place] for an attempt of ablation under general [...] no kevin during any of the transmissions. Sinoatrial node dysfunction (HCC) with symptomatic bradycardia Priority: High Note Last Updated: 04/16/2015 Echocardiogram on 05/25/09 revealed a normal left ventricular size and systolic function, L VEF 65 to 70%. Medtronic DDD permanent pacemaker implantation on 06/14/[address] Daljit Singletary. Pacemaker - Medtronic - [id number] Adapta - Implanted 06/14/2009 06/14/2009 Priority: High Note Last Updated: 06/27/2018 MODEL NAME MODEL# SERIAL# DATE IMPLANTED GENERATOR Medtronic DDD [id number] 06/14/09 RV LEAD Medtronic Active Bipolar CapSureFix 4076 [id number] 06/14/09 A LEAD Medtronic Active Bipolar CapSurFix 4076 [id number] 06/14/09 Depression with anxiety 12/24/2017 Priority: Medium Coronary artery disease involving [place] coronary artery of wamp[place]ag heart without angina pectoris 12/21/2013 Priority: Medium Note Last Updated: 08/16/2018 Stress test on 07/21/2018 shows regadenoson EKG is negative, normal Regadenoson sestamibi myocardial perfusion study, normal left ventricular size, wall thickness and motion, preserv ed left ventricular systolic function, LVEF by gated SPECT is 64%, by Daljit Singletary MD. Echocardiogram 06/16/16, shows normal left ventricular size, wall thickness and motion, pre served left ventricular systolic function, LVEF is 70%, grade 1 left ventricular diastolic d ysfunction, normal valvular structure, mild aortic root dilatation measuring 4.[address], normal right-sided pressure, normal IVC with a normal respiratory collapse, when compar ed to echocardiography on 03/19/15, no significant changes. [...] tissue attenuation cannot completely be ruled out. [facility] 12/25/13, shows non critical coronary artery disease, [...] Last Updated: 12/24/2017 Lower back injury (From [facility]) 1981 1985 Hyperlipidemia, mixed Priority: Low Abnormal serum level of lipase 12/22/2018 Cannabis abuse 12/14/2018 Neuralgia 11/25/2018 Diarrhea 12/22/2017 Weight loss 12/22/2017 Anxiety about [...] pulmonary arterial system to suggest pulmonary embolism Blood glucose elevated 11/26/2014 Cannabis abuse, daily use 07/25/2014 Decreased potassium in the blood 02/27/2014 Preventative health care 06/26/2013 Note Last Updated: 11/26/2014 COLONOSCOPY:02/05/2009 DEXA: no Immunizations: 08/17/2011 TDAP Prostate:12/16/2010 0.14 Occupation: disabled Marital Status: Andreia Children: 2 Exercise: walk at home yard Sunscreen: no Caffeine: no Seatbelt Use: 0 PSA Date Reults 07/26/[address] Angiogram chest w/constrast 05/26/14 [facility] Hypoglycemia 09/20/2012 Bipolar disorder (HCC) Mixed anxiety depressive disorder Smoker Hypertension NONDEPENDENT OPIOID ABUSE IN REMISSION Fibromyalgia LUMBAGO CHRONIC PAIN SYNDROME Ulcerative colitis HEPATITIS B PUD FATTY LIVER DISEASE Multiple substance abuse (HCC) DEPRESSION 06/14/2012 NECK PAIN, CHRONIC 09/24/2011 ABDOMINAL [...] APPENDECTOMY 2004 [place] CARDIAC CATHERIZATION 12/25/13 Left COLONOSCOPY N/A 12/24/2017 Procedure: COLONOSCOPY; Surgeon: Emmanuel Daniel MD; Location: [facility] EGD 12/24/2017 HARDWARE REMOVAL KNEE ARTHROSCOPY Bilateral KNEE SURGERY 2003 meniscus-right LAMINECTOMY 1991 L3-4 LUMBAR DISCECTOMY 1991 L3-4 LUMBAR FUSION 01/2011 6 spine fusions NECK SURGERY NECK SURGERY 08/10/2012 Fusion. [place], OR PACEMAKER PLACEMENT 06/14/09 ROTATOR CUFF REPAIR Bilateral 03/22/2013 SINUS SURGERY 1997 SPINAL FUSION STOMACH SURGERY UPPER GASTROINTESTINAL ENDOSCOPY N/A 12/24/2017 Procedure: EGD; Surgeon: Emmanuel Daniel MD; Location: [facility] VASECTOMY CURRENT MEDICATIONS Discharge Medication List as of 01/02/2019 21:31 CONTINUE these medications which have NOT CHANGED Details 5-Hydroxytryptophan 100 MG CAPS Take 2 capsules by mouth Daily.Historical Med acyclovir (ZOVIRAX) 5% ointment Apply 1 Application topically every 3 hours.Historical Med aluminum-magnesium hydroxide 200-200 MG/5ML suspension Take 5 mLs by mouth every 6 hours as needed for Indigestion.Historical Med Ascorbic Acid (VITAMIN C) 1000 MG tablet Take 1,000 mg by mouth Daily. aspirin 81 MG tablet Take 81 mg by mouth Daily. cephalexin (KEFLEX) 500 mg capsule Take 500 mg by mouth 4 times daily.Historical Med cholecalciferoL (VITAMIN D-3) 1,000 units CAPS capsule Take by mouth.Historical Med ciprofloxacin (CIPRO) 250 mg tablet Take 250 mg by mouth 2 times daily.Historical Med clonazePAM (KLONOPIN) 0.5 mg tablet Take 0.5 mg by mouth 3 times daily.Historical Med cloNIDine (CATAPRES) 0.2 MG tablet Take 1 tablet by mouth 3 times daily.Disp-270 tablet, R- 3, Normal dicyclomine (BENTYL) 20 MG tablet Take 1 tablet by mouth 3 times daily as needed. Before me alsDisp-30 tablet, R-1, Normal diphenhydrAMINE (BENADRYL) 25 MG capsule Take 25 mg by mouth as needed. diphenoxylate-atropine (LOMOTIL) 2.5-0.025 mg per tablet Take 1 tablet by mouth 4 times delia ly as needed for Diarrhea.Historical Med flecainide (TAMBOCOR) 100 mg tablet Take 100 mg by mouth 2 times daily.Historical Med loperamide (IMODIUM A-D) 2 MG tablet Take 4 mg by mouth.Historical Med losartan (COZAAR) 25 mg tablet Take 25 mg by mouth Daily.Historical Med Melatonin-Pyridoxine 1-10 MG TABS Take 10 mg by mouth nightly.Historical Med Methylsulfonylmethane (MSM) 1000 MG TABS Take One time daily.Historical Med metoprolol succinate (TOPROL-XL) 100 mg ER tablet Take 1 tablet by mouth Daily.Disp-90 tabl et, R-1, Normal [facility] Natural Products (OSTEO BI-FLEX/5-LOXIN ADVANCED PO) Take [...] DOSE, CALL 911Disp-100 tablet, R-3 , Normal [place]-3 Fatty Acids (SALMON OIL-1000 PO) CAPS, one capsule by mouth daily twice daily ondansetron (ZOFRAN ODT) 4 mg disintegrating tablet Take 4 mg by mouth every 6 hours as nee ded.Historical Med ONE TOUCH DELICA LANCETS [facility] Check glucose as needed for hypoglycemiaDisp-100 each, R-3, N ormal pravastatin (PRAVACHOL) 40 MG tablet take 1 tablet by mouth NIGHTLYDisp-90 tablet, R-3, Nor mal raNITIdine (ZANTAC) 75 MG tablet Take 1 tablet by mouth 2 times daily.Disp-30 tablet, R-0, Print rOPINIrole (REQUIP) 1 mg tablet Take 1 tablet by mouth nightly.R-0, Historical Med sertraline (ZOLOFT) 50 mg tablet Take 50 mg by mouth Daily.Historical Med sodium sulfate-potassium sulfate-magnesium sulfate (SUPREP BOWEL PREP KIT) oral solution Ta ke 177 mLs by mouth See Admin Instructions. Take 1st dose at 4PM And 2nd dose at 8PM or late r day prior to procedureDisp-1 kit, R-0, NormalMay use golytely or equivalent bowel prep,Sta rt prep at 4 p.m. The day prior to procedure drink 8 ounces every 10-20 minutes until gone. !! UNABLE TO FIND Med Name: Pure CBD Tincture, 100 mg at night CBD ultra Concentrated Hemp oil for anxiety as needed CBD anti-inflammatory topical cream TIDHistorical Med !! UNABLE TO FIND Take 1 tablet by mouth Daily. MARINE-[id number] Med UNCODED MEDICATION Diagnosis: Obstructive Sleep Apnea ICD-9: 327.23 Length of Need: 99 MonthsDisp-1 Device, R-0, [id number] -Nasal Pillows, A5545-Bjbzx Mask, A 7030- Full Face Mask, R5296-Yzrxzs Humidifier, S6155-Ygdkng Tubing, S6762-Xvotgbdm, P6584-Bh instrap A7039/A703 8-Filters valACYclovir (VALTREX) 1 g tablet Take 1,000 mg by mouth 2 times daily.R-1, Historical Med !! - Potential duplicate medications found. Please discuss with provider. ALLERGIES Allergies Allergen Reactions Clarithromycin Palpitations Rapid [...] fishing) Previous quit date 6. Alcohol use Yes Comment: Occassionally Drug use: No Comment: Patient [...] PHYSICAL EXAM VITAL SIGNS: (first vital signs):Temp: 35.6 C (96.1 F) Pulse: 72 Resp: 13 SpO2: 99 % BP : 123/85 Body mass index is 28 kg/m. Constitutional: Well-appearing male patient. HEENT: Atraumatic, [...] EKG shows no STEMI or acute arrhythmia LABS Results for orders placed or performed during the hospital encounter of 01/02/19 CBC with Differential Result Value Ref Range WBC 7.2 4.0 - 11.0 K/uL RBC 4.34 4.30 - 5.70 M/uL Hemoglobin 15.2 13.5 - 18.0 g/dL Hematocrit 43.6 40.0 - 51.0 % MCV 100.5 83.0 - 101.0 fL MCH 35.0 28.0 - 35.0 pg MCHC 34.9 32.0 - 36.0 g/dL RDW-CV 12.5 <15.0 % RDW-SD 46.5 (H) 35.1 - 46.3 fL Platelet Count 120 (L) 140 - 440 K/uL MPV 11.2 6.5 - 12.4 fL Immature Platelet Fraction 5.1 0.9 - 11.2 % % Neutrophils 62.1 45.0 - 82.0 % % Lymphocytes 28.1 20.0 - 45.0 % % Monocytes 8.0 4.0 - 12.0 % % Eosinophils 1.1 0.0 - 5.0 % % Basophils 0.6 0.0 - 1.0 % % Immature Granulocytes 0.1 0.0 - 0.4 % Absolute Neutrophils 4.45 1.80 - 8.50 K/uL Absolute Lymphocytes 2.01 0.60 - 3.20 K/uL Absolute Monocytes 0.57 0.00 - 1.00 K/uL Absolute Eosinophils 0.08 0.00 - 0.40 K/uL Absolute Basophils 0.04 0.00 - 0.10 K/uL Absolute Immature Granulocytes 0.01 0.00 - 0.03 K/uL % nRBC 0 0 - 2 per 100 WBC's Absolute nRBC 0.00 0.00 - 0.01 K/uL Comprehensive Metabolic Panel Result Value Ref Range Na 136 136 - 149 mmol/L K 3.9 3.5 - 5.1 mmol/L Cl 105 98 - 109 mmol/L CO2 22 (L) 24 - 31 mmol/L Anion Gap 9 3 - 16 mmol/L Glucose 96 70 - 109 mg/dL BUN 13 7 - 18 mg/dL Creatinine 0.96 0.60 - 1.30 mg/dL eGFR if not >60 >=60 mL/min/1.73m2 Ca 9.0 8.3 - 10.5 mg/dL Albumin 4.1 3.2 - 5.0 g/dL Bilirubin Total 0.8 0.1 - 1.5 mg/dL Total Protein 6.7 6.0 - 7.8 g/dL AST 25 10 - 42 U/L ALT 19 6 - 45 U/L Alkaline Phosphatase 62 40 - 110 U/L Globulin 2.6 2.1 - 3.8 g/dL Albumin/Globulin Ratio 1.6 0.8 - 2.0 BUN/Creatinine Ratio 13.5 Troponin I Result Value Ref Range Troponin I <0.01 <0.06 ng/mL B Type Natriuretic Peptide Result Value Ref Range BNP 15 <100 pg/mL Magnesium Result Value Ref Range Magnesium 2.0 1.8 - 2.5 mg/dL Urinalysis with Microscopic with Culture if Indicated Result Value Ref Range Color Yellow Light Yellow, Yellow, Straw Clarity Clear Clear pH, Urine 5.0 5.0 - 8.0 Specific [place] 1.011 1.001 - 1.030 Protein, Urine Negative Negative Blood, Urine Negative Negative Glucose, Urine Negative Negative Ketones, Urine Trace (A) Negative Bilirubin, Urine Negative Negative Nitrite, Urine Negative Negative Leukocyte Esterase, Urine Negative Negative Urobilinogen, Urine Negative 0.2 mg/dL, 1.0 mg/dL, Negative WBC UA 0-2 0 - 2 /HPF RBC UA 0-2 0 - 2 /HPF SQUAMOUS EPITHELIAL UA 0-2 0 - 2 /LPF BACTERIA UA Negative Negative /HPF MUCUS UA Present (A) Negative /LPF URINE COMMENT Urine Culture Not Indicated Drugs of Abuse, Screen, Urine Result Value Ref Range Amphetamine Screen, Urine Negative Negative Barbiturates Screen, Urine Negative Negative Benzodiazepines Screen, Urine Negative Negative Cannabinoids Screen, Urine Positive (A) Negative Cocaine Screen, Urine Negative Negative Methadone Screen, Urine Negative Negative Opiates Screen, Urine Negative Negative Troponin I Result Value Ref Range Troponin [...] were reviewed along with EMS notes and assisted record s if applicable. (See chart for details) Medications and Allergy list reviewed. Nurses note and old records were reviewed The patient was seen and examined, The patient was placed on the monitor and monitored. An iv was placed. The patient was given a normal saline infusion. Screening labs are ordered and are unremarkable. Treated with nitroglycerin without any change in symptoms. There is no clinical evidence of Myocardialinfarcation Acute coronary syndrome STEMI NSTEMI Aortic dissection boerhaves syndrome Pneumonia Pneumothorax Pulmonary embolism Heart failure The patients heart score for cardiac event history is low risk. The patient is wells low risk and perc negative. The patient does not meet criteria for cardiac chest pain Repeat trop and ekg are unremarkable no evidence of mi/acs at this time. Discussed with patient given multiple episodes of CP offered obs for repeat stress and labs as well as further workup, treatment, and monitoring however The patient is AAOx4, clinically sober, not in distress, has clear and fluent speech is sit ting in their bed comfortably. Verbalizes risks of not performing further workup including ( harm, , permanent injury, morbidity, mortality) and benefits of performing further work up, and though offered, still refuses. The patient remained hemodynamically stable without evidence of shock or malperfusion durin g their ED course, at time of discharge patient is sitting/resting comfortably in no apparen t distress. The patient was counseled about their results and workup including all incidenta l findings and the need for out patient follow up to which they verbalized their understandi ng and were provided. The patient was counseled about the importance of medical recommendati ons today and the dangers including harm, , permanent injury, injury, morbidity, and mo rtality of non adherence to the treatment plan. They verbalize their understanding of today' s plan and agree with it. They were counseled that emergency services are available to them 14/06 and to return to the ED immediately if symptoms return, persist, change, worsen or new symptoms develop. The patient was given follow up. They were given further strict, thorough, actionable return precautions to which they verbalized their understanding. The patient's q uestions were answered and the patient agreed with the plan. The patient was discharged in g ood stable condition. Last Set of Vital Signs: Temp: 35.6 C (96.1 F) Pulse: 73 Resp: 13 SpO2: 95 % BP: (!) 13 0 FINAL IMPRESSION ICD-10-CM ICD-9-CM 1. Chest pain, unspecified type R07.9 786.50 Follow-up Information Kirk French MD. Specialty: Internal Medicine Contact information: [address] [address] Daljit Singletary MD. Call today. Specialty: Cardiology Contact information: [address] [facility] [address] Discharge Medication List as of 01/02/2019 21:31 Administrations This Visit aluminum & magnesium hydroxide-simethicone (MAALOX PLUS REGULAR STRENGTH) 200-200-20 mg/5 mL suspension 30 mL Admin Date 01/02/2019 Action Given Dose 30 mL Route Oral Administered By Regine Morgan RN lidocaine (XYLOCAINE) 2% viscous solution 10 mL Admin Date 01/02/2019 Action Given Dose 10 mL Route Oral Administered By Regine Morgan RN LORazepam (ATIVAN) injection 1 mg Admin Date 01/02/2019 Action Given Dose 1 mg Route Intravenous Administered By Toshia Arellano RN nitroglycerin (NITROSTAT) SL tablet 0.4 mg Admin Date 01/02/2019 Action Given Dose 0.4 mg Route Sublingual Administered By Toshia Arellano RN ondansetron (ZOFRAN) injection 4 mg Admin Date 01/02/2019 Action Given Dose 4 mg Route Intravenous Administered By Toshia Arellano RN sodium chloride 0.9% (NS) infusion Admin Date 01/02/2019 Action New Bag Dose Rate 100 mL/hr Route Intravenous Administered By Toshia Arellano RN Portions of this chart were created with [employer] voice recognition software. Inadvertent so und alike substitutions may be present and are unintentional Franki Pham MD 01/03/19 0042 oung, Edwin alarcon RN - 01/02/2019 6:05 PM PSTStarted having chest pain since this AM. Has taken nitroglyc jabier x 2, last one taken about 20 min ago. Also took clonazepam for anxiety. Chest pain 03/01 currently. Pain does not radiate . Feels "a little" SOB. documented in this encounter Plan of Treatment +--------+ + + + + | Date | Type | Specialty | Care Team | Description | +--------+ + + + + | 08/21/ | Implant | Cardiology | Daljit Singletary, | Remote Device | | 2019 | Monitor | | MD [address] | Interrogation | | | | | [place], | (Primary Dx); | | | | | [place] [address] | Pacemaker; | | | | | [phone] | Sinoatrial node | | | | | | dysfunction (HCC) | | | | | | with symptomatic | | | | | | bradycardia | +--------+ + + + + | 08/21/ | Implant | Cardiology | Daljit Singletary, | Remote Device | | 2019 | Monitor | | MD [address] | Interrogation | | | | | [place], | (Primary Dx); | | | | | [place] [address] | Pacemaker; | | | | | [phone] | Sinoatrial node | | | | | | dysfunction ([facility]) | | | | | | with symptomatic | | | | | | bradycardia | +--------+ + + + + | 08/21/ | Implant | Cardiology | Daljit Singletary, | Remote Device | | 2019 | Monitor | | MD [address] | Interrogation | | | | | [place], | (Primary Dx); | | | | | [place] [address] | Pacemaker; | | | | | [phone] | Sinoatrial node | | | | | | dysfunction (HCC) | | | | | | with symptomatic | | | | | | bradycardia | +--------+ + + + + | 08/21/ | Implant | Cardiology | Daljit Singletary, | Remote Device | | 2019 | Monitor | | MD [address] | Interrogation | | | | | [place], | (Primary Dx); | | | | | [place] [address] | Pacemaker; | | | | | [phone] | Sinoatrial node | | | | | | dysfunction (HCC) | | | | | | with symptomatic | | | | | | bradycardia | +--------+ + + + + | 08/21/ | Implant | Cardiology | Daljit Singletary, | Remote Device | | 2019 | Monitor | | MD [address] | Interrogation | | | | | [place], | (Primary Dx); | | | | | [place] [address] | Pacemaker; | | | | | [phone] | Sinoatrial node | | | | [...] [address] | | | | | | [address] [place], | | | | | | [place] [address] | | | | | | [phone] | | | | | | | [...] + | ED INFORMATION | Routin | 01/02/2019 | | | | EXCHANGE | e | 6:04 PM | | | | | | PST | | | + +--------+ + + + +---+--------+ | | | | | Proced | | | ure | | | Note - | | | Eneida, | | | Lab In | | | | | | Hlseve | | | n - | | | | | | 2018 | | | 6:05 | | | PM PST | | | | | | Format [...] | | | 9 | | | 18:02? | | | HODGEN | | | , | | | FREDER | | | ICK | | | W?MRN: | | | | | | [id number] | | | [id number] | | | riteri | | | a Met | | | | | | PRCSec | | | urity | | | and | | | [...] | | | system | | | .Presc | | | riptio | | | n Drug | | | | | | Report [...] | | | Health | | | 4 0 | | | Provid | | | ence | | | St. | | | [facility] | | | Medica | | | l | | | Center | | | 5 0 | | | Total | | | 9 0 | | | Note: | | [...] | | | Summar | | | yDate | | | Facili | | | ty | | | City | | | State | | | Type | | | Diagno | | | ses or | | | Chief | | | | | | Compla | | | int | | | Feb | | | [...] | | | HE | | | [facility] | | | [...] | | | ified | | | [place] | | | [...] ncy | | | | | | Locali | | | zed | | | edema | | | | | | Person | | | al | | | histor | | | y of | | | other | | | venous | | | | | | thromb | | | osis | | | and | | | emboli | | | sm | | | Mar | | | 13, | | | 2018 | | | Provid | | | ence | | | [facility] | | | [facility] | | [place] | | | [place] | | | Emerge | | | ncy | | | | | | Bronch | | | itis | | | | | | Cough | | | | | | Bronch | | | itis, | | | not | | | specif | | | ied as | | | acute | | | or | | | chroni | | | c | | | Recent | | | [...] | | WILLIA | | | M D, | | | M.D. | | | Utility Assembler | | | al | | | [...] | | | ent/60 | | | [id number] | | | [phone] | | | [phone] | | | [id number] | | | [id number] | | | [id number] | | | The | | | above | | | inform | | | [...] | | | ? | | | 2019 | | | [...] | | | | ANGELA MARADIAGA MD ([id number]) | | | | | | on [...] | | | | | | [employer] | | | | | [...] [address] | [place] | [phone] | | [facility] | | [id number] | | | - LABORATORY | | [...] | | | Screen, | | | [facility] | | | Urine | | | MEDICAL | | | | | | CENTER - | | | | | | LABORATORY | | + + + + + + | Barbiturate | Negative | Negative | [facility] | | | s Screen, | | | [facility] | | | Urine | | | MEDICAL | | | | | | CENTER - | | | | | | LABORATORY | | + + + + + + | Benzodiazep | Negative | Negative | [facility] | | | queenie | | | [facility] | | | Screen, | | | MEDICAL | | | Urine | | | CENTER - | | | | | | LABORATORY | | + + + + + + | Cannabinoid | Positive (A) | Negative | [facility] | | | s Screen, | | | [facility] | | | Urine | | | MEDICAL | | | | | | CENTER - | | | | | | LABORATORY | | + + + + + + | Cocaine | Negative | Negative | [facility] | | | Screen, | | | [facility] | | | Urine | | | MEDICAL | | | | | | CENTER - | | | | | | LABORATORY | | + + + + + + | Methadone | Negative | Negative | [facility] | | | Screen, | | | [facility] | | | Urine | | | MEDICAL | | | | | | CENTER - | | | | | | LABORATORY | | + + + + + + | Opiates | Negative | Negative | [facility] | | | Screen, | | | [facility] | | [...] + | [facility] | [address] | [place] | [phone] | | [facility] | | [address] | | | - LABORATORY | | [...] | | Yellow, Straw | [facility] | | | | | | MEDICAL | | | | | | CENTER - | | | | | | LABORATORY | | + + + + + + | Clarity, | Clear | Clear | [facility] | | | Urine | [...] - 1.030 | [facility] | | | [place], | | | [facility] | | [...] + + + + | Bacteria, | Negative | Negative /HPF | [facility] | | | Urine | | | [facility] | | | | | | MEDICAL | | | | | | CENTER - | | | | | | LABORATORY | | + + + + + + | Mucus, | Present (A) | Negative /LPF | [facility] | | | Urine | [...] ST. | [address] | [place], [place] | [phone] | | [facility] | | [address] | | | - LABORATORY | | [...] + | Eneida, Rad Results In - 01/02/2019 9:59 PM [...] JACKRESHMA | | | | | | ST. [...] [address] | [place] | [phone] | | [facility] | | [address] | | | - LABORATORY | | [...] + | [facility] | [address] | [place] | [phone] | | [facility] | | [address] | | | - LABORATORY | | [...] | | | | | | [employer] | | | | | [...] + | Performing | Address | City[facility] | Phone Number | | Organization | | | | + + + + + | [facility] | [address] | [place] | [phone] | | [facility] | | [address] | | | - LABORATORY | | [...] + + + + + + | eGFR, | >60Comment: GLOMERULAR | >=60 | [facility] | | | non- | FILTRATION | mL/min/1.73m2 | [facility] | | | [employer] | RATE,ESTIMATED | | MEDICAL | | | | mL/min/1.81v5Sufs than | | CENTER - | | [...] | 9.0 | 8.3 - 10.5 | [facility] | | | | | mg/dL | [place] | | | | | | MEDICAL | | | | | | CENTER - | | | | | | LABORATORY | | + + + + + + | Albumin | 4.1 | 3.2 - 5.0 g/dL | [facility] | | | | | | [place] | | | | | [...] | bulin Ratio | | | [facility] | | | | | | MEDICAL [...] + | [facility] | [address] | [place] | [phone] | | [facility] | | [address] | | | - LABORATORY | | | | + + + + + CBC with Differential (01/02/2019 6:17 PM PST) + + + + + + | Component | Value | Ref Range | Performed | Pathologist | | | | | At | Signature | + + + + + + | White Blood | 7.2 | 4.0 - 11.0 K/uL | [facility] | | | Cells | | | [facility] | | | | | | MEDICAL | | | | | | CENTER - | | | | | | LABORATORY | | + + + + + + | Red Blood | 4.34 | 4.30 - 5.70 | [facility] | | | Cells | | M/uL | [facility] | [...] Low IPF are consistent | | [facility] | | | Fraction | with a [...] | | | | WBC's | [facility] | | | | [...] [address] | [place] | [phone] | | [facility] | | [address] | | | - LABORATORY | | [...] | | | | ANGELA MARADIAGA MD ([id number]) | | | | | | on [...] type - Primary | + + | Remote Device Interrogation [...] | | | | | | Maalox. Davidke well., | | | | | | [...] | | mg 1 mg, Intravenous, ONCE, Wed | | 19 6:58 | | | [...] | | | | | Sublingual, ONCE, Wed01/02/19 at | | PM PST | | [...]
--- OUTSIDE RECORDS SUMMARY | ~2020-08-06 | XMS | Encounter Summary ---
Demographics + + + | Address | [address] | | | [place] [address] | + + + | Home Phone [...] + +------+ + | Care Oil Well Logger Name | Role | Phone | + +------+ + | Kirk French MD | PCP | | + +------+ + Reason for Visit + + + | Reason | Comments | + + + | Device Check | | + + + Follow Up [...] | MD [address] | [address] | | | | | hypertension | [address] | [place], | | | | | Sick sinus | [address] | [place] | | | | | syndrome | [place], [place] | [address] | | | | | (HCC) | [address] | Phone: | | | | | Ventricular | Phone: | [phone] | | | | | premature | [phone] | Fax: | | | | | depolarizati | Fax: | [phone] | | | | | on | [phone] | | | | | | Tachycardia, | | | | | | | unspecified | | | | | | | | | | | | | | Atherosclero | | | | | | | tic heart | | | | | | | disease of | | | | | | | [place] | | | | | | | [...] +--------+ + + + + Encounter Details +--------+ + + + + | Date | Type | Department | Care Team | Description | +--------+ + + + + | 05/01/ | Procedure | [facility] | Margarito Jaeger | Pacemaker | | 2020 | visit | CARDIOLOGY [address] | MD Fabrice [address] | reprogramming/check | | | | [place], | [address] [place] | DO NOT DELETE | | | | [place] [address] | [place] [address] | (Primary Dx); | | | | [phone] | [phone] | Pacemaker; | | | | | [...] documented as of this encounter Procedure Notes Margarito Jaeger MD - 05/01/2020 2:30 PM PDTAssociated Order(s): DEVICE INTERROGATIO NProcedure(s): DEVICE INTERROGATIONPre-Procedure Diagnose(s): Pacemaker reprogramming/check; Pacemaker; Sinoatrial node dysfunction (HCC) PATIENT NAME: Moe Sanchez : 1960: AGE: 60 y.o. Pacemaker Evaluation Report May 01, 2020 Reason for evaluation: routine Indication for pacemaker: Sinoatrial node dysfunction (HCC) (I49.5, 427.81); Pacemaker (Z95.0, V45.01); Pacemaker re programming/check (Z45.018, V53.31) Patient was seated and reclined and device [...] by Jonathan Jaeger MD Underlying rhythm: Sinus rhythm 72-75 beats. 5 mode switch episodes accounting for <0.1% of the time. 0 atrial high rate episodes. 1 ventricular high rate episode occurred 02/26/2020 at 10:10 PM hours for 3 seconds. EGM is c onsistent with sinus tachycardia rate 140-145 beats with PVCs. PVC singles 1797 PVC singles 163/month PVC runs 40 PVC runs 4/month Histogram good. Battery longevity 8 months. Normal and stable device function. Patient reports remote monitor not connecting and has received error codes. Referred to [place] [facility] Stay Connected line. Monthly remote monitoring. Device interrogation due in office at [facility]. documented in t his encounter Plan of Treatment +--------+ + + + + | Date | Type | Specialty | Care Team | Description | +--------+ + + + + | 08/21/ | Implant | Cardiology | Daljit Singletary, | Remote Device | | 2019 | Monitor | | MD Chiquis [address] [place] | Interrogation | | | | | [place], | (Primary Dx); | | | | | [place] [address] | Pacemaker; | | | | | [phone] | Sinoatrial node | | | | | | dysfunction (HCC) | | | | | | with symptomatic | | | | | | bradycardia | +--------+ + + + + | 08/21/ | Implant | Cardiology | Daljit Singletary, | Remote Device | | 2019 | Monitor | | MD [address] [place] | Interrogation | | | | | [place], | (Primary Dx); | | | | | [place] [address] | Pacemaker; | | | | | [phone] | Sinoatrial node | | | | | | dysfunction (HCC) | | | | | | with symptomatic | | | | | | bradycardia | +--------+ + + + + | 08/21/ | Implant | Cardiology | Daljit Singletary, | Remote Device | | 2019 | Monitor | | MD [address] | Interrogation | | | | | [place], | (Primary Dx); | | | | | [place] [address] | Pacemaker; | | | | | [phone] | Sinoatrial node | | | | | | dysfunction (HCC) | | | | | | with symptomatic | | | | | | bradycardia | +--------+ + + + + | 08/21/ | Implant | Cardiology | Daljit Singletary, | Remote Device | | 2019 | Monitor | | MD [address] | Interrogation | | | | | [place], | (Primary Dx); | | | | | [place] [address] | Pacemaker; | | | | | [phone] | Sinoatrial node | | | | | | dysfunction (HCC) | | | | | | with symptomatic | | | | | | bradycardia | +--------+ + + + + | 08/21/ | Implant | Cardiology | Daljit Singletary, | Remote Device | | 2019 | Monitor | | MD [address] | Interrogation | | | | | [place], | (Primary Dx); | | | | | [place] [address] | Pacemaker; | | | | | [phone] | Sinoatrial node | | | | [...] W | | | | | | [place], | | | | | | [place] [address] | | | | | | [phone] | | | | | | | | +--------+ + + + + documented as of this encounter Procedures + +--------+ + + + | Procedure Name | Priori | Date/Time | Associated Diagnosis | Comments | | | ty | | | | + +--------+ + + + | DEVICE INTERROGATION | Routin | 05/02/2020 | Pacemaker | Results for this | | | e | 12:00 AM | reprogramming/check | procedure are in the | | | | PDT | DO NOT DELETE | results section. | | | | | Pacemaker | | | | | | Sinoatrial node | | | | | | dysfunction (HCC) | | | | | | with symptomatic | | | | | | bradycardia | | + +--------+ + + + documented in this encounter Results Device Interrogation (05/02/2020 12:00 AM PDT) + + + | Narrative | Performed At | + + + | Margarito Fabrice | [facility] | | MD Heide 05/01/2020 3:04 PM PATIENT NAME: Moe | | | Kirk Sanchez : 1960: AGE: 60 y.o. Pacemaker | | | Evaluation Report May 01, 2020 Reason for evaluation: | | | routineIndication for pacemaker: Sinoatrial node dysfunction (HCC) | | | (I49.5, 427.81); Pacemaker (Z95.0, V45.01); Pacemaker | | | reprogramming/check (Z45.018, V53.31) Patient was seated and reclined | | | and device was interrogated. Pacemaker parameters, battery [...] MD | | | Underlying rhythm: Sinus rhythm 72-75 beats. 5 mode switch episodes | | | accounting for <0.1% of the time. 0 atrial high rate episodes. 1 | | | ventricular high rate episode occurred 02/26/2020 at 10:10 PM hours for | | | 3 seconds. EGM is consistent with sinus tachycardia rate 140-145 beats | | | with PVCs. PVC singles 1797 PVC singles 163/monthPVC | | | runs 40 PVC runs 4/monthHistogram good. | | | Battery longevity 8 months.Normal and stable device function.Patient | | | reports remote monitor not connecting and has received error codes. | | | Referred to [facility] Stay Connected line. Monthly remote | | | monitoring.Device interrogation due in office at [facility]. | | |Data collected by Shabana Lama RN | | | | | |The technical aspect of downloading device data was supervised by | | |SJuan Diego Jaeger MD | | |Underlying rhythm: Sinus rhythm 72-75 beats. | | |5 mode switch episodes accounting for <0.1% of the time. | | |0 atrial high rate episodes. | | |1 ventricular high rate episode occurred 02/26/2020 at 10:10 PM | | |hours for 3 seconds. EGM is consistent with sinus tachycardia | | |rate 140-145 beats with PVCs. | | |PVC singles 1797 PVC singles 163/month | | |PVC runs 40 PVC runs 4/month | | |Histogram good. Battery longevity 8 months. | | |Normal and stable device function. | | |Patient reports remote monitor not connecting and has received | | |error codes. Referred to [employer] Stay Connected line. Monthly | | |remote monitoring. | | |Device interrogation due in office at [facility]. | | | | | + + + + + | Procedure Note | + + | Margarito Jaeger MD - 05/01/2020 2:30 PM PDT PATIENT NAME: Moe Bradley | | Lauar : 1960: AGE: 60 y.o.Pacemaker Evaluation ReportJune 10, | | 2020Reason for evaluation: routineIndication for pacemaker: Sinoatrial node dysfunction | | ([facility]) (I49.5, 427.81); Pacemaker (Z95.0, V45.01); Pacemaker reprogramming/check | | (Z45.018, V53.31)Patient was seated and reclined and device was interrogated. Pacemaker | | parameters, battery status, percentages pacing and significant arrhythmias were | | reviewed. Heart rate histograms were assessed for adequate heart rate response and any | | alerts reviewed. Appropriate lead impedance testing was performed. Pacing impedances | | were reviewed for any significant changes. Sensing tests were performed by decreasing | | LRL. Adequacy of pacing thresholds were tested by increasing LRL for each lead and | | recorded for loss of capture. Final outputs were assessed for adequate safety | | margins.Please see the scanned [facility] report and device PDF for further details.Data | | collected by Shabana Lama RNThe technical aspect of downloading device data was | | supervised by Jonathan Jaeger MD Underlying rhythm: Sinus rhythm 72-75 beats. 5 mode | | switch episodes accounting for <0.1% of the time. 0 atrial high rate episodes. 1 | | ventricular high rate episode occurred 02/26/2020 at 10:10 PM hours for 3 seconds. EGM is | | consistent with sinus tachycardia rate 140-145 beats with PVCs. PVC singles 1797 | | PVC singles 163/monthPVC runs 40 PVC runs 4/monthHistogram good. | | Battery longevity 8 months.Normal and stable device function.Patient reports remote | | monitor not connecting and has received error codes. [facility] | Connected line. Monthly remote monitoring.Device interrogation due in office at [facility]. | |Underlying rhythm: Sinus rhythm 72-75 beats. | |5 mode switch episodes accounting for <0.1% of the time. | |0 atrial high rate episodes. | |1 ventricular high rate episode occurred 02/26/2020 at 10:10 PM hours for 3 seconds. EGM is c onsistent with sinus tachycardia rate 140-145 beats with PVCs. | |PVC singles 1797 PVC singles 163/month | |PVC runs 40 PVC runs 4/month | |Histogram good. Battery longevity 8 months. | |Normal and stable device function. | |Patient reports remote monitor not connecting and has received error codes. Referred to [facility] Stay Connected line. Monthly remote monitoring. | |Device interrogation due in office at [facility]. | + + + +---------+ + + [...]
--- OUTSIDE RECORDS SUMMARY | ~2020-08-06 | XMS | Encounter Summary ---
Demographics + + + | Address | [address] | | | [place] [address] | + + + | Home Phone [...] Team Providers + +------+ + | Care Oceanologist Name | Role | Phone | + [...] | ER [facility] | [address] | [address] | | | | | Procedures | [place], | [place], | | | | | [place] | [place] [address] | [place] [address] | | | | | | Phone: | Phone: | | | | | | [phone] | [phone] | | | | | | Fax: | Fax: | | | | | | [phone] | [phone] | +--------+--------+ + + + + Encounter Details +--------+---------+ + + + | Date | Type | Department | Care Team | Description | +--------+---------+ + + + | 02/11/ | Office | [facility] | [place], | Coronary artery | | 2016 | Visit | CARDIOLOGY [address] | [address] [place] [address] | disease involving | | | | [place], | [place], | [place] coronary | | | | [place] [address] | [place] [address] | artery of [place] | | | | [phone] | [phone] | heart without angina | | | [...] of non-critical coronary artery d isease involving [place] coronary artery of [place] heart without angina pectoris, essential h ypertension, [...] him. He sleeps on 1 pillow at [facility] without any shortness of breath. Overall, he has been doing well otherwise than the anx iety. MEDICAL, SURGICAL, AND PERSONAL HISTORY Past [...] Preventative health care Coronary artery disease involving [place] coronary artery of [place] heart without angina pectoris Cannabis abuse, daily [...] 3RD DOSE, CALL 911 100 tablet 3 [place]-3 Fatty Acids (SALMON OIL-1000 PO) CAPS, one capsule by mouth daily twice daily ONE TOUCH DELICA LANCETS [facility] [place] Check glucose as needed for hypoglycemia 100 [...] was found Confirmed by ANGELA MARADIAGA MD ([id number]) on 01/25/2017 6:45:26 AM LAB RESULTS reviewed during visit today primarily from [facility]: LIPID Lab Results Component Value Date [...] PLTEX 162 11/05/2016 I reviewed records from [facility] for emergency department visit o n 01/2017 which is summarized in the HPI. Above data and testing is reviewed this visit; testing below is historical data unless othe rwise specified. ASSESSMENT: 1. Essential hypertension with goal blood pressure less than 130/80: A. Today it has been well controlled 110 mmHg. He is in class I of t he [place] [employer] functional class. On physical examination there are no signs of fluid overload. 2. Non-critical Coronary artery disease involving [place] coronary a rtery of [place] heart without angina pectoris: A. Normal exercise sestamibi stress test on 05/25/09. LVEF by [facility] ed SPECT was 53%. B. Echocardiogram from [...] cannot completely be ruled out . [facility] 12/25/13, shows non critical coronary artery [...] ventricular arrhythmia performed by Dr. Gambino at [facility] on 01/30/2013. Patient had spontaneous PVCs [...] to go back in 3 days to [place] for an attempt of ablation under general [...] normal stable device function. Estimated remaining [facility] longevity is 3.5 years.. 5. Lightheadedness and [...] this chart may have been created with [employer] voice recognition software. Occasi onal wrong-word or [...] | 08/21/ | Implant | Cardiology | Dajlit Singletary, | Remote Device | | 2019 | Monitor | | MD [address] [place] | Interrogation | | | | | [place], | (Primary Dx); | | | | | [place] [address] | Pacemaker; | | | | | [phone] | Sinoatrial node | | | | | | dysfunction (HCC) | | | | | | with symptomatic | | | | | | bradycardia | +--------+ + + + + | 08/21/ | Implant | Cardiology | Daljit Singletary, | Remote Device | | 2019 | Monitor | | MD [address] [place] | Interrogation | | | | | [place], | (Primary Dx); | | | | | [place] [address] | Pacemaker; | | | | | [phone] | Sinoatrial node | | | | | | dysfunction (HCC) | | | | | | with symptomatic | | | | | | bradycardia | +--------+ + + + + | 08/21/ | Implant | Cardiology | Daljit Singletary, | Remote Device | | 2020 | Monitor | | MD [address] [place] | Interrogation | | | | | [place], | (Primary Dx); | | | | | [place] [address] | Pacemaker; | | | | | [phone] | Sinoatrial node | | | | | | dysfunction (HCC) | | | | | | with symptomatic | | | | | | bradycardia | +--------+ + + + + | 08/21/ | Implant | Cardiology | Daljit Singletary, | Remote Device | | 2019 | Monitor | | MD [address] [place] | Interrogation | | | | | [place], | (Primary Dx); | | | | | [place] [address] | Pacemaker; | | | | | [phone] | Sinoatrial node | | | | | | dysfunction (HCC) | | | | | | with symptomatic | | | | | | bradycardia | +--------+ + + + + | 08/21/ | Implant | Cardiology | Daljit Singletary, | Remote Device | | 2019 | Monitor | | MD [address] [place] | Interrogation | | | | | [place], | (Primary Dx); | | | | | [place] [address] | Pacemaker; | | | | | [phone] | Sinoatrial node | | | | [...] W | | | | | | [place], | | | | | | [place] [address] | | | | | | [phone] | | | | | | | | +--------+ + + + + documented as of this encounter Visit Diagnoses + + | Diagnosis | + + | Coronary artery disease involving [place] coronary artery of [place] heart without | | angina pectoris - [...]
--- OUTSIDE RECORDS SUMMARY | ~2020-08-06 | XMS | Encounter Summary ---
Demographics + + + | Address | [address] | | | [place] [address] | + + + | Home Phone [...] Providers + +------+ + | Care Occupational Safety And Health Manager Name | Role [...] | Refill | [facility] [place] | Hellberg, Geri, | Medication Refill | | 2016 | | CARDIOLOGY [address] | ANIMAL TREATMENT INVESTIGATOR [address] [place] | | | | | [place], | St [place], [place] | | | | | [place] [address] | [address] | | | | | [phone] | | | +--------+--------+ + + + [...] | | 2019 | Monitor | | [place] [address] [facility] | Interrogation | | | | | [place], | (Primary Dx); | | | | | [place] [address] | Pacemaker; | | | | | [phone] | Sinoatrial node | | | | | | dysfunction ([facility]) | | | | | | with symptomatic | | | | | | bradycardia | +--------+ + + + + | 08/21/ | Implant | Cardiology | Daljit Singletary, | Remote Device | | 2020 | Monitor | | MD [address] [place] | Interrogation | | | | | [place], | (Primary Dx); | | | | | [place] [address] | Pacemaker; | | | | | [phone] | Sinoatrial node | | | | | | dysfunction (HCC) | | | | | | with symptomatic | | | | | | bradycardia | +--------+ + + + + | 08/21/ | Implant | Cardiology | Daljit Singleatry, | Remote Device | | 2019 | Monitor | | MD [address] [place] | Interrogation | | | | | [place], | (Primary Dx); | | | | | [place] [address] | Pacemaker; | | | | | [phone] | Sinoatrial node | | | | | | dysfunction (HCC) | | | | | | with symptomatic | | | | | | bradycardia | +--------+ + + + + | 08/21/ | Implant | Cardiology | Daljit Singletary, | Remote Device | | 2019 | Monitor | | MD [address] [place] | Interrogation | | | | | [place], | (Primary Dx); | | | | | [place] [address] | Pacemaker; | | | | | [phone] | Sinoatrial node | | | | | | dysfunction (HCC) | | | | | | with symptomatic | | | | | | bradycardia | +--------+ + + + + | 08/21/ | Implant | Cardiology | Daljit Singletary, | Remote Device | 2019 | Monitor | | MD Chiquis Anton[address] [place] | Interrogation | | | | | [place], | (Primary Dx); | | | | | [place] [address] | Pacemaker; | | | | | [phone] | Sinoatrial node | | | | | | dysfunction ([facility]) | | | | | | with symptomatic | | | | | | bradycardia | +--------+ + + + + | 10/23/ | Procedure | Cardiology | | | | 2019 | visit | | | | +--------+ + + + + | 10/23/ | Office | Cardiology | [place], | | | 2019 | Visit | | [address] | | | | | | [place], | | | | | | [place] [address] | | | | | | [phone] | | | | | | | | +--------+ + + + + documented as of this encounter Visit Diagnoses Not on filedocumented in this encounter"
--- OUTSIDE RECORDS SUMMARY | ~2020-08-06 | XMS | Encounter Summary ---
Demographics + + + | Address | [address] | | | [place] [address] | + + + | Home Phone [...] Team Providers + +------+ + | Care Clerical Transcriber Name | Role | Phone | + +------+ + | Kirk French MD | PCP | | + +------+ + Encounter Details +--------+ + + + + | Date | Type | Department | Care Team | Description | +--------+ + + + + | 01/05/ | Anesthesia | [facility] | Jarett Barakat | | | 2019 | Event | MED CTR MP INTRA OP | PMD [address] | | | | | [address] | [address] [place] | | | | | [place] | [address] | | | | | [address] | [phone] | | | | | [phone] | | | +--------+ + + + [...] explained and consent obtained. Patient transported to [facility], | | | 4 | | Monitors [...] + + + | Periph | 01/05/19; 0746; Right; Hand; | 01/05/1947 by | 01/05/19950 by | | yvette | neex-fje-[id number] catheter system; | Kasie Natarajan RN | [...] from the original. ANESTHESIA POSTANESTHESIA EVALUATION Moe Kirk Sanchez 58 y.o. male 1960 [id number] Procedure(s) EGD (N/A Mouth) COLONOSCOPY (N/A Rectum) [...] signed by Jarett Barakat MD 01/05/2019 10:15 [facility] nesthesia Procedure Notes - Jarett Barakat MD - 01/05/2019 8: 44 AM PSTAssociated Order(s): ANE AIRWAY NOTEDocument Blocks and LDA Procedures nesthesia Prepro cedure Evaluation - Jarett Barakat MD - 01/05/2019 1:19 AM PST ANESTHESIA PREANESTHESIA EVALUATION Moe Sanchez 58 y.o. male 1960 [id number] Procedure(s): EGD (N/A Mouth) COLONOSCOPY (N/A Rectum) [...] Preventative health care Coronary artery disease involving [place] coronary artery of [place] heart without angina pectoris Cannabis abuse, daily [...] 2019 | Monitor | | [address] | Interrogation | | | | | [place], | (Primary Dx); | | | | | [place] [address] | Pacemaker; | | | | | [phone] | Sinoatrial node | | | | | | dysfunction (HCC) | | | | | | with symptomatic | | | | | | bradycardia | +--------+ + + + + | 08/21/ | Implant | Cardiology | Daljit Singletary, | Remote Device | | 2019 | Monitor | | MD [address] | Interrogation | | | | | [place], | (Primary Dx); | | | | | [place] [address] | Pacemaker; | | | | | [phone] | Sinoatrial node | | | | | | dysfunction ([facility]) | | | | | | with symptomatic | | | | | | bradycardia | +--------+ + + + + | 08/21/ | Implant | Cardiology | Daljit Singletary, | Remote Device | | 2019 | Monitor | | MD [address] | Interrogation | | | | | [place], | (Primary Dx); | | | | | [place] [address] | Pacemaker; | | | | | [phone] | Sinoatrial node | | | | | | dysfunction (HCC) | | | | | | with symptomatic | | | | | | bradycardia | +--------+ + + + + | 08/21/ | Implant | Cardiology | Sunshinecherelle Daljit, | Remote Device | | 2020 | Monitor | | MD [address] | Interrogation | | | | | [place], | (Primary Dx); | | | | | [place] [address] | Pacemaker; | | | | | [phone] | Sinoatrial node | | | | | | dysfunction (HCC) | | | | | | with symptomatic | | | | | | bradycardia | +--------+ + + + + | 08/21/ | Implant | Cardiology | Daljit Singletary, | Remote Device | | 2019 | Monitor | | MD [address] | Interrogation | | | | | [place], | (Primary Dx); | | | | | [place] [address] | Pacemaker; | | | | | [phone] | Sinoatrial node | | | | [...] W | | | | | | [place], | | | | | | [place] [address] | | | | | | [phone] | | | | | | | [...] | | | | | Vomiting, Starting [facility] 01/05/19 at | | AM PST | [...]
--- OUTSIDE RECORDS SUMMARY | ~2020-08-06 | XMS | Encounter Summary ---
Demographics + + + | Address | [address] | | | [place] [address] | + + + | Home Phone [...] Team Providers + +------+ + | Care Installation & Maintenance Executive Name | Role | Phone | + [...] Device | | 2018 | Monitor | CARDIOLOGY [address] | Interrogation | | | | [place], | [place], | (Primary Dx); | | | | [place] [address] | [place] [address] | Presence of | | | | [phone] | [phone] | permanent cardiac | | | | [...] encounter Procedure Notes Daljit Singletary MD - 11/20/2018 11:59 PM PSTAssociated Order(s): DEVICE INTERROGATION- R EMOTEProcedure(s): DEVICE INTERROGATION- REMOTEPre-Procedure Diagnose(s): Pacemaker reprogra mming/check; Presence of permanent cardiac pacemaker; Sinoatrial node dysfunction (HCC)Date of Remote Interrogation: 09/30/18 Refer to [facility] documentation and remote PDF scanned into [employer] for remote interrogation re sults. Data collected by Kailey Pruitt RN Presenting rhythm: sinus rhythm atrial paced ventricular sensed between 81-82 beats. 1 mode switch episodes accounting for <0.1% of the time. 0 atrial high rate episodes. 1 ventricular high rate episodes. The longest occurred 09/24/2018 at 1:07 PM for 3 seconds . EGM is consistent with brief atrial tachycardia with rate 160-180 beats. PVC singles 129 PVC singles 129/month PVC runs 4 PVC runs 4/month Histogram good. Battery longevity 27 months. Apparent normal and stable device function. Device interrogation due in office in August 2019. documented in this encounter Plan of Treatment +--------+ + + + + | Date | Type | Specialty | Care Team | Description | +--------+ + + + + | 08/21/ | Implant | Cardiology | Daljit Singletary, | Remote Device | | 2019 | Monitor | | MD [address] | Interrogation | | | | | [place], | (Primary Dx); | | | | | [place] [address] | Pacemaker; | | | | | [phone] | Sinoatrial node | | | | | | dysfunction (HCC) | | | | | | with symptomatic | | | | | | bradycardia | +--------+ + + + + | 08/21/ | Implant | Cardiology | Daljit Singletary, | Remote Device | | 2019 | Monitor | | MD [address] | Interrogation | | | | | [place], | (Primary Dx); | | | | | [place] [address] | Pacemaker; | | | | | [phone] | Sinoatrial node | | | | | | dysfunction (HCC) | | | | | | with symptomatic | | | | | | bradycardia | +--------+ + + + + | 08/21/ | Implant | Cardiology | Daljit Sinlgetary, | Remote Device | | 2020 | Monitor | | MD [address] | Interrogation | | | | | [place], | (Primary Dx); | | | | | [place] [address] | Pacemaker; | | | | | [phone] | Sinoatrial node | | | | | | dysfunction ([facility]) | | | | | | with symptomatic | | | | | | bradycardia | +--------+ + + + + | 08/21/ | Implant | Cardiology | Daljit Singletary, | Remote Device | | 2020 | Monitor | | MD [address] | Interrogation | | | | | [place], | (Primary Dx); | | | | | [place] [address] | Pacemaker; | | | | | [phone] | Sinoatrial node | | | | | | dysfunction (HCC) | | | | | | with symptomatic | | | | | | bradycardia | +--------+ + + + + | 08/21/ | Implant | Cardiology | Anshujohnsoncherelle Daljit, | Remote Device | | 2019 | Monitor | | [address] | Interrogation | | | | | [place], | (Primary Dx); | | | | | [place] [address] | Pacemaker; | | | | | [phone] | Sinoatrial node | | | | [...] W | | | | | | [place], | | | | | | [place] [address] | | | | | | [phone] | | | | | | | [...] remote PDF scanned into | | | [facility] for remote interrogation results. Data collected [...]
--- OUTSIDE RECORDS SUMMARY | ~2020-08-06 | XMS | Encounter Summary ---
Demographics + + + | Address | [address] | | | [place] [address] | + + + | Home Phone [...] Providers + +------+ + | Care Certified Genetic Counselor Name | Role | Phone | [...] | | 2019 | | [address] | MD Tawanna [address] | (Medication ) | | | | CHRISTOPH Nguyen | [facility] | | | | | [address] | [place], [place] | | | | | [phone] | [address] | | | | | | [phone] | | | | | | | [...] for flow max be sent to the [facility] in [place], [place] like this is the pharmacy we currently have on file for him. Will route to urology clin [facility] staff for review documented in this encounter Plan of Treatment +--------+ + + + + | Date | Type | Specialty | Care Team | Description | +--------+ + + + + | 08/21/ | Implant | Cardiology | Daljit Singletary, | Remote Device | | 2019 | Monitor | | MD [address] | Interrogation | | | | | [place], | (Primary Dx); | | | | | [place] [address] | Pacemaker; | | | | | [phone] | Sinoatrial node | | | | | | dysfunction (HCC) | | | | | | with symptomatic | | | | | | bradycardia | +--------+ + + + + | 08/21/ | Implant | Cardiology | Daljit Singletary, | Remote Device | | 2020 | Monitor | | MD [address] | Interrogation | | | | | [place], | (Primary Dx); | | | | | [place] [address] | Pacemaker; | | | | | [phone] | Sinoatrial node | | | | | | dysfunction (HCC) | | | | | | with symptomatic | | | | | | bradycardia | +--------+ + + + + | 08/21/ | Implant | Cardiology | Daljit Singletary, | Remote Device | | 2019 | Monitor | | MD [address] | Interrogation | | | | | [place], | (Primary Dx); | | | | | [place] [address] | Pacemaker; | | | | | [phone] | Sinoatrial node | | | | | | dysfunction (HCC) | | | | | | with symptomatic | | | | | | bradycardia | +--------+ + + + + | 08/21/ | Implant | Cardiology | Daljit Singletary, | Remote Device | | 2019 | Monitor | | MD [address] | Interrogation | | | | | [place], | (Primary Dx); | | | | | [place] [address] | Pacemaker; | | | | | [phone] | Sinoatrial node | | | | | | dysfunction (HCC) | | | | | | with symptomatic | | | | | | bradycardia | +--------+ + + + + | 08/21/ | Implant | Cardiology | Daljit Singletary, | Remote Device | | 2019 | Monitor | | MD [address] | Interrogation | | | | | [place], | (Primary Dx); | | | | | [place] [address] | Pacemaker; | | | | | [phone] | Sinoatrial node | | | | | | dysfunction ([facility]) | | | | | [...] W | | | | | | [place], | | | | | | [place] [address] | | | | | | [phone] | | | | | | | | +--------+ + + + + documented as of this encounter Visit Diagnoses Not on filedocumented in this encounter"
--- OUTSIDE RECORDS SUMMARY | ~2020-08-06 | XMS | Encounter Summary ---
Demographics + + + | Address | [address] | | | [place] [address] | + + + | Home Phone [...] Team Providers + +------+ + | Care Aluminum Molding Machine Operator Name | Role | Phone [...] + + | 09/05/ | [facility] | Geri Angel, | SINUS BRADYCARDIA | | 2012 | Visit | CARDIOLOGY [address] | REFRIGERATION PLANT OPERATOR [address] | (Primary Dx); | | | | [place], | [place], [place] | Symptomatic PVCs; | | | | [place] [address] | [address] | Hypertension; | | | | [phone] | | Hyperlipidemia | +--------+---------+ + + [...] and/or ref er you to electrophysiology in [place]. 3. Return in 3 months, or sooner [...] he did not followup with electrophysiology in [place], so he has remained on diltiaze m [...] Past Surgical History Procedure Date Knee surgery 2003 meniscus-right Laminectomy 1991 L3-4 Lumbar discectomy 1991 L3-4 Appendectomy 2005 [facility] Sinus surgery 1997 Lumbar fusion 01/2011 Pacemaker placement 06/14/09 Neck fusion 08/10/2012 [place] Ablation 04/03/13 Shoulder surgery 03/22/13 Family History Problem Relation Age of Onset Cancer Father colon,prostate Family Status Relation Status Age Mother 62 [place] Father Alive Unknown health Brother Alive Sister [...] by mouth Ken y. 30 tablet 6 [place]-3 Fatty Acids (SALMON OIL-1000 PO) Active CAPS, [...] Sanchez Date: September 05, 2013 : 1960 Supervisor Central Supply: PARISA Velazquez Device Heel Seat Fitter: Bracketrtronic Sense (mV) Impedance (?) Capture (V) Capture (ms) A Lead 4-5.6 417 1.5 0.12 RV Lead >31.36 533 2.0 0.09 LV Lead Battery Impedance (?): 452 Battery Voltage (V): 2.79 DE Interval (ms): 162 AR Interval (ms): 245 VA Conduction: Mode Switch Events: 1 % of time: <0.1 -CHURCH SUPERVISOR: <0.1% AP-CHURCH SUPERVISOR: 0.1% -VS: 22.7% AP-VS: 77.1% CHURCH SUPERVISOR: Magnetic Rate: 85 LINDA: 65 LEAH: [...] ventricular arrhythmia performed by Dr. Gamb[facility] at [facility] on 01/30/2013. Patient had spontaneous PVCs from [...] to go back in 3 days to [place] for an attempt of ablation under general [...] He is upgraded to class I of [place] [employer] functional class. There are no signs or symptoms of overt congestive heart failure. There is no fluid retention on physical examin ation. Patient continues on diltiazem and metoprolol, and at this point as he had a recurre nt episode last week will continue him on both of these medications. As this [facility] he has had he does not [...] he would like to see electrophysiology in [place] rather than [place] as he paulino s family there, if [...] made to ensure accuracy; however, inadvertent computerized research/program director errors may be pre sent. Electronically signed by: PARISA Walton 09/06/2013 17:35 documented in this encounter Procedure Notes IRINA VAZQUEZ - 09/05/2013 12:00 AM PDTAssociated Order(s): ECG - EXTERNAL SCANElectroni elida signed by Randa Melo at 09/08/2013 12:30 PM PDTdocumented in this encounter Plan of Treatment +--------+ + + + + | Date | Type | Specialty | Care Team | Description | +--------+ + + + + | 08/21/ | Implant | Cardiology | Daljit Singletary, | Remote Device | | 2020 | Monitor | | MD [address] | Interrogation | | | | | [place], | (Primary Dx); | | | | | [place] [address] | Pacemaker; | | | | | [phone] | Sinoatrial node | | | | | | dysfunction ([facility]) | | | | | | with symptomatic | | | | | | bradycardia | +--------+ + + + + | 08/21/ | Implant | Cardiology | Daljit Singletary | Remote Device | | 2019 | Monitor | | MD [address] | Interrogation | | | | | [place], | (Primary Dx); | | | | | [place] [address] | Pacemaker; | | | | | [phone] | Sinoatrial node | | | | | | dysfunction (HCC) | | | | | | with symptomatic | | | | | | bradycardia | +--------+ + + + + | 08/21/ | Implant | Cardiology | Daljit Singletary, | Remote Device | | 2019 | Monitor | | MD [address] | Interrogation | | | | | [place], | (Primary Dx); | | | | | [place] [address] | Pacemaker; | | | | | [phone] | Sinoatrial node | | | | | | dysfunction (HCC) | | | | | | with symptomatic | | | | | | bradycardia | +--------+ + + + + | 08/21/ | Implant | Cardiology | Daljit Singletary, | Remote Device | | 2019 | Monitor | | MD [address] | Interrogation | | | | | [place], | (Primary Dx); | | | | | [place] [address] | Pacemaker; | | | | | [phone] | Sinoatrial node | | | | | | dysfunction (HCC) | | | | | | with symptomatic | | | | | | bradycardia | +--------+ + + + + | 08/21/ | Implant | Cardiology | Daljit Singletary, | Remote Device | | 2019 | Monitor | | MD [address] | Interrogation | | | | | [place], | (Primary Dx); | | | | | [place] [address] | Pacemaker; | | | | | [phone] | Sinoatrial node | | | | [...] | | | | | | [place] [address] | | | | | | [phone] | | | | | | | [...] and unspecified hyperlipidemia | + + | Remote Device [...]
--- OUTSIDE RECORDS SUMMARY | ~2020-08-06 | XMS | Encounter Summary ---
Demographics + + + | Address | [address] [place] [address] [address] | | | [place] [address] | + + + | Home Phone [...] + + + | Author | [facility] | + + + | Organization | [facility] | + + + | Address | Unknown | + + + | Phone | Unavailable | + + + Support + + + + + | Name | Relationship | Address | Phone | + + + + + | Rachel Valencia | ELIEZER | [place] | | | | | [address] | | + + + + + Care Team Providers + +------+ + | Care Steeplechase Jockey Name | Role | Phone | + +------+ + | Darion Holden DO | PCP | | + +------+ + Encounter Details +--------+ + + + + | Date | Type | Department | Care Team | Description | +--------+ + + + + | 01/22/ | Transcribe | [facility] | Transcribe | | | 2020 | Orders | [facility] [address] | Encounter, Provider, | | | | | [address] [place] [facility] | [address] | | | | | [facility], | [place] [address] | | | | | [address] | | | | | | [place], [place] | | | | | | [address] | | | | | | [phone] | | | +--------+ + + + [...]
--- OUTSIDE RECORDS SUMMARY | ~2020-08-06 | XMS | Encounter Summary ---
Demographics + + + | Address | [address] | | | [place] [address] | + + + | Home Phone [...] Providers + +------+ + | Care Order To Delivery Supervisor Name | Role | Phone | + +------+ + | Michael Amanda DO | PCP | | + +------+ + Reason for Visit + +--------+ + | Reason | Onset | Comments | | | Date | | + +--------+ + | Medication Refill | 09/20/ | | | | 2011 | | + +--------+ + Encounter Details +--------+--------+ + + + | Date | Type | Department | Care Team | Description | +--------+--------+ + + + | 09/20/ | Refill | [facility] | Michael Amanda, | Medication Refill | | 2011 | | [facility] | DO [address] | | | | | [address] | [place] | | | | | [place] | [address] | | | | | [address] | | | | | | [phone] | | | +--------+--------+ + + + [...] this encounter Miscellaneous Notes Telephone Encounter - Gabriella Mcdonnell RN - 09/20/2012 4:34 PM PDTLeft message for jovon fontenot that prescription was sent to [facility] in [place]. elephone Encounter - Michael Amanda DO - 09/20/2012 4:28 PM PDTSent in rx for test strips elephone Encounter - Gabriella Mcdonnell RN - 09/20/2012 1:51 PM PDTPatient states he has been diagnosed (a long time ago) with hypoglycemia. He thinks his blood sugar has been running low, but he is out o f One Touch Ultra Test strips. He is requesting prescription sent to [facility] [place] for these. He said Medicare will pay for it if it is prescribed. Asked him what his blood sugar has been recently, He said he didn't know because he hasn't been able to test it. He is mendez e that this should be on his problem list - both Dr Holden and Dr Hartman know that he is hypo glycemic. Suggested he should see you about this. He said he just saw you. Please advise. Th ank you. documented in this encounter Plan of Treatment +--------+ + + + + | Date | Type | Specialty | Care Team | Description | +--------+ + + + + | 08/21/ | Implant | Cardiology | Daljit Singletary, | Remote Device | | 2019 | Monitor | | [address] [facility] | Interrogation | | | | | . [place], | (Primary Dx); | | | | | [place] [address] | Pacemaker; | | | | | [phone] | Sinoatrial node | | | | | | dysfunction (HCC) | | | | | | with symptomatic | | | | | | bradycardia | +--------+ + + + + | 08/21/ | Implant | Cardiology | Daljit Singletary, | Remote Device | | 2019 | Monitor | | MD [address] | Interrogation | | | | | [place], | (Primary Dx); | | | | | [place] [address] | Pacemaker; | | | | | [phone] | Sinoatrial node | | | | | | dysfunction (HCC) | | | | | | with symptomatic | | | | | | bradycardia | +--------+ + + + + | 08/21/ | Implant | Cardiology | Daljit Singletary, | Remote Device | | 2019 | Monitor | | MD [address] | Interrogation | | | | | [place], | (Primary Dx); | | | | | [place] [address] | Pacemaker; | | | | | [phone] | Sinoatrial node | | | | | | dysfunction (HCC) | | | | | | with symptomatic | | | | | | bradycardia | +--------+ + + + + | 08/21/ | Implant | Cardiology | Gemnii Rashadotto, | Remote Device | | 2019 | Monitor | | MD [address] | Interrogation | | | | | [place], | (Primary Dx); | | | | | [place] [address] | Pacemaker; | | | | | [phone] | Sinoatrial node | | | | | | dysfunction (HCC) | | | | | | with symptomatic | | | | | | bradycardia | +--------+ + + + + | 08/21/ | Implant | Cardiology | Daljit Singletary, | Remote Device | | 2019 | Monitor | | MD [address] | Interrogation | | | | | [place], | (Primary Dx); | | | | | [place] [address] | Pacemaker; | | | | | [phone] | Sinoatrial node | | | | [...] | | 2019 | Visit | | JaneenPARISA villarreal [address] | | | | | | [place], | | | | | | [place] [address] | | | | | | [phone] | | | | | | | | +--------+ + + + + documented as of this encounter Visit Diagnoses + + | Diagnosis | + + | Hypoglycemia - Primary Hypoglycemia, unspecified | + + | Remote Device Interrogation [...]
--- OUTSIDE RECORDS SUMMARY | ~2020-08-06 | XMS | Encounter Summary ---
Demographics + + + | Address | [address] [place] [address] [address] | | | [place] [address] | + + + | Home Phone | | + + + | Preferred Language | Unknown | + + + | Marital Status | | + + + | Pentecostalism Affiliation | Unknown | + + + | Race | White | + + + | Ethnic Group | Not or | + + + Author + + + | Author | [facility] | + + + | Organization | [facility] | + + + | Address | Unknown | + + + | Phone | Unavailable | + + + Support + + + + + | Name | Relationship | Address | Phone | + + + + + | Rachel Valencia | ELIEZER | [place] | | | | | [address] | | + + + + + Care Team Providers + +------+ + | Care Woods Rider Name | Role | Phone | + [...] | | | | | [place] | [place], [place] | | | | | | [place], [place] | [address] | | | | | | [address] | Phone: | | | | | | Phone: | [phone] | | | | | | [phone] | Fax: | | | | | | Fax: | [phone] | | | | | | [phone] | | +--------+--------+ + + + + Encounter Details +--------+---------+ + + + | Date | Type | Department | Care Team | Description | +--------+---------+ + + + | 09/28/ | Office | Digestive Health | Bridgette Rios, | Chronic diarrhea | | 2019 | Visit | Center at [facility] [address] | [address] | (Primary Dx); | | | | [address] [facility] | [place], [place] | Abdominal cramping; | | | | for Health and | [address] | Unintentional weight | | | | [facility] | [phone] | loss | | | | [place], [place] | | | | | | [address] | | | | | | [phone] | | | +--------+---------+ + + + [...] some lab orders to [facility] 2. supervisor special effects the nortryptiline and take 1 tablet each [...] different fr om the original. Gastroenterology Clinic [facility] ~ Initial Consultation / New Patient Evaluation [...] the past included upper endoscopy colonoscopy in 2017. Upper endoscopy showed duo denitis and is thought to be more reactive then characteristic of malabsorption i.e. celiac sprue. Colonoscopy showed small ulcerations in the terminal ileum biopsies were negative for inflammatory bowel disease. CT scan done through [facility] November show ed mild diverticulosis without evidence [...] of Present Illness: Here with his from [place] for second opinion regarding severe abdominal cramps, isreal rrhea and weight loss following a GI illness contracted during a trip to [facility]. He reports that 2 years ago he was traveling in [facility] and he had some suspicious seafood. He develo ps profound bloody diarrhea with severe abdominal pain. He was hospitalized in [place] [facility] and w as treated with IV hydration. [...] file Gets together: Not on file Attends sabianist service: Not on file Active member of [...] Plan and Recommendations: 1. [facility] in [place] for stool studies as outlined above 2. If negative and symptoms persist, recommend capsule endoscopy (this could be completed b y local business continuity planner or he could return to [place] for this test) 3. Nortryptiline 25mg q HS with instruction to titrate to 50mg q HS after 2 weeks if tolera kevin Follow-Up: with local business continuity planner Counseling Time: I spent a total of 35 minutes with this patient, of which greater than 50 % of the time was spent in counseling. Specific issues that were discussed included a revie w of the disease, diagnostic tools that help in our management plans for the patient's chron ic diarrhea, abdominal cramping and weight loss and goals for treatment. Bridgette Rios MD Infrastructure Solutions Architect Gastroenterology documented in this e ncounter Plan [...]
--- OUTSIDE RECORDS SUMMARY | ~2020-08-06 | XMS | Encounter Summary ---
Demographics + + + | Address | [address] [place] [address] [address] | | | [place] [address] | + + + | Home Phone | | + + + | Preferred Language | Unknown | + + + | Marital Status | | + + + | Mormonism Affiliation | Unknown | + + + | Race | White | + + + | Ethnic Group | Not or | + + + Author + + + | Author | [facility] | + + + | Organization | [facility] | + + + | Address | Unknown | + + + | Phone | Unavailable | + + + Support + + + + + | Name | Relationship | Address | Phone | + + + + + | Rachel Valencia | ELIEZER | [place] | | | | | [address] | | + + + + + Care Team Providers + +------+ + | Care Curriculum Coordinator Name | Role | Phone | [...] | | 2019 | | Center at [facility] [address] | Gastroenterology | Gastroenterology | | | | [address] [facility] | | | | | | for Health and | | | | | | [address], [address] | | | | | | [place], [place] | | | | | | [address] | | | | | | [phone] | | | +--------+ + + + [...]
--- OUTSIDE RECORDS SUMMARY | ~2020-08-06 | XMS | Encounter Summary ---
Demographics + + + | Address | [address] | | | [place] [address] | + + + | Home Phone [...] Providers + +------+ + | Care Field Sales Engineer Name | Role | Phone | + +------+ + | Michael Amanda DO | PCP | | + +------+ + Reason for Visit +--------+--------+ + | Reason | Onset | Comments | | | Date | | +--------+--------+ + | Other | 02/16/ | concerned about palpitations | | | 2012 | | +--------+--------+ + Encounter Details +--------+ + + + + | Date | Type | Department | Care Team | Description | +--------+ + + + + | 02/16/ | Telephone | [facility] | [place], | Other (concerned | | 2012 | | CARDIOLOGY [address] | [address] [place] [address] | about palpitations) | | | | [place], | [place], | | | | | [place] [address] | [place] [address] | | | | | [phone] | [phone] | | | | | | | [...] this encounter Miscellaneous Notes Telephone Encounter - Janeen Ramirez ARNP - 02/17/2013 10:08 AM PDTPatient was going to b e seen Wednesday by EP and I believe they are repeating procedure. Thanks! elephone En counter - Darlene Tirado RN - 02/16/2013 1:30 PM PDTFred was just seen yesterday and maria luz led today to ask to speak with Janeen. Janeen was in seeing patients so he agreed to speak with me. He is wondering if there is anything he can do on his own to help with his PVC's. We discussed meditation and exercise. He was asking if he could get some Clonazepam, he paulino s had that in the past and that really helped. He is advised that he should get that type o f prescription from his PCP. He states that he does not have a PCP but will try to get one soon. I will let Janeen know of the conversation. ......................................... ..Darlene Tirado RN on 02/16/2013 at 13:40 documented in this encounter Plan of Treatment +--------+ + + + + | Date | Type | Specialty | Care Team | Description | +--------+ + + + + | 08/21/ | Implant | Cardiology | Daljit Singletary, | Remote Device | | 2019 | Monitor | | MD [address] | Interrogation | | | | | 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, | (Primary Dx); | | | | | [place] [address] | Pacemaker; | | | | | [phone] | Sinoatrial node | | | | | | dysfunction (HCC) | | | | | | with symptomatic | | | | | | bradycardia | +--------+ + + + + | 08/21/ | Implant | Cardiology | Daljit Singletary, | Remote Device | | 2020 | Monitor | | MD [address] | Interrogation | | | | | [place], | (Primary Dx); | | | | | [place] [address] | Pacemaker; | | | | | [phone] | Sinoatrial node | | | | | | dysfunction (HCC) | | | | | | with symptomatic | | | | | | bradycardia | +--------+ + + + + | 08/21/ | Implant | Cardiology | Daljit Singletary, | Remote Device | | 2019 | Monitor | | MD [address] | Interrogation | | | | | [place], | (Primary Dx); | | | | | [place] [address] | Pacemaker; | | | | | [phone] | Sinoatrial node | | | | | | dysfunction (HCC) | | | | | | with symptomatic | | | | | | bradycardia | +--------+ + + + + | 08/21/ | Implant | Cardiology | Daljit Singletary, | Remote Device | | 2020 | Monitor | | MD [address] | Interrogation | | | | | [place], | (Primary Dx); | | | | | [place] [address] | Pacemaker; | | | | | [phone] | Sinoatrial node | | | | [...] | | | | | | [place] [address] | | | | | | [phone] | | | | | | | | +--------+ + + + + documented as of this encounter Visit Diagnoses Not on filedocumented in this encounter"
--- OUTSIDE RECORDS SUMMARY | ~2020-08-06 | XMS | Encounter Summary ---
Demographics + + + | Address | [address] | | | [place] [address] | + + + | Home Phone [...] Team Providers + +------+ + | Care Requirements Manager Name | Role | Phone | + +------+ + PCP | Unavailable | + +------+ + Encounter Details +--------+ + + + + | Date | Type | Department | Care Team | Description | +--------+ + + + + | 05/24/ | Hospital | [facility] | Chi Fang | Unspecified Chest | | 2008 - | Encounter | [facility] | MD Kelsey [address] | Pain | | | | CLINICAL DECISION | CHRISTOPH HERNANDEZ | | | 05/25/ | | [facility] | [address] | | | 2008 | | [place], [place] | [phone] | | | | | [address] | | | | | | [phone] | | | +--------+ + + + [...] Interrogation | | | | | [place], | (Primary Dx); | | | | | [place] [address] | Pacemaker; | | | | | [phone] | Sinoatrial node | | | | | | dysfunction (HCC) | | | | | | with symptomatic | | | | | | bradycardia | +--------+ + + + + | 08/21/ | Implant | Cardiology | Daljit Singletary, | Remote Device | | 2020 | Monitor | | MD [address] | Interrogation | | | | | [place], | (Primary Dx); | | | | | [place] [address] | Pacemaker; | | | | | [phone] | Sinoatrial node | | | | | | dysfunction (HCC) | | | | | | with symptomatic | | | | | | bradycardia | +--------+ + + + + | 08/21/ | Implant | Cardiology | Daljit Singletary, | Remote Device | | 2019 | Monitor | | MD [address] | Interrogation | | | | | [place], | (Primary Dx); | | | | | [place] [address] | Pacemaker; | | | | | [phone] | Sinoatrial node | | | | | | dysfunction (HCC) | | | | | | with symptomatic | | | | | | bradycardia | +--------+ + + + + | 08/21/ | Implant | Cardiology | Daljit Singletary, | Remote Device | | 2019 | Monitor | | MD [address] | Interrogation | | | | | [place], | (Primary Dx); | | | | | [place] [address] | Pacemaker; | | | | | [phone] | Sinoatrial node | | | | [...] Dx); | | | | | [place] [address] | Pacemaker; | | | | | [phone] | Sinoatrial node | | | | [...] | | | | | | [place] [address] | | | | | | [phone] | | | | | | | | +--------+ + + + + documented as of this encounter Procedures + +--------+ + + + | Procedure Name | Priori | Date/Time | Associated Diagnosis | Comments | | | ty | | | | + +--------+ + + + | NM MYOCARDIAL | Routin | 05/25/2009 | | Results for this | | PERFUSION MULT SPECT | e | 10:31 AM | | procedure are in the | | | | PDT | | results section. | + +--------+ + + + | ECHO COMPLETE | Routin | 05/25/2009 | | Results for this | | | e | 7:50 AM | | procedure are in the | | | | PDT | | results section. | + +--------+ + + + | CT HEAD WO CONTRAST | Routin | 05/24/2009 | | Results for this | | | e | 12:58 PM | | procedure are in the | | | | PDT | | results section. | + +--------+ + + + | XR CHEST 2 VIEWS | Routin | 05/24/2009 | | Results for this | | | e | 11:31 AM | | procedure are in the | | | | PDT | | results section. | + +--------+ + + + documented in this encounter Results NM Myocardial Perfusion Mult SPECT (05/25/2009 10:31 AM PDT) + + | Specimen | + + | | + + + + + | Narrative | Performed At | + + + | [id number] | | | Page 1 RADIOLOGY | | | CDU 08715/ | | | [facility] | | | CENTER NAME: [place] [address] | | | | | | | | | DATE OF : 1960 ORDER NUMBER: | | | [id number] EXAM DATE/TIME: 05/25/2009 08:00 A ORDERING PHYSICIAN: | | | CHI FANG ORDER DETAIL: [id number] / / HNM EXAM | | | DESCRIPTION: NM MYOCARDIAL GATED S+R | | | | | | NUCLEAR MEDICINE MYOCARDIAL GATED STRESS/REST STUDY 05/25/2009 | | | HISTORY A 49-year-old male with chest pain. TECHNIQUE Stress | | | Myoview examination. The patient exercised according to the Arthur | | | protocol for 10 minutes 40 seconds. Resting heart rate of 50 raised to | | | 144 beats per minute, 84% of maximal age-predicted heart rate. | | | Resting blood pressure of 124/79 changed to 198/107. Exam stopped due | | | to fatigue and dyspnea. Gated multiplanar and SPECT images | | | through the heart. Resting images obtained after the uneventful | | | administration of 14.9 mCi of [id number] Myoview. Stress | | | images postinjection of 47.7 mCi of same. Resting ECG normal. | | | Normal blood pressure and heart rate response with hypertensive | | | response a bit exaggerated. Chest pain lasting only 1 or 2 seconds | | | during the exam. Unifocal PVCs during the exam without ST segment | | | changes. Note that the heart rate only reached 84% of the maximum | | | predicted heart rate. This was due to the patient's fatigue during | | | the exam, affords a potential imaging correlate with slightly lowered | | | sensitivity. FINDINGS Wall motion is normal. End-diastolic | | | volume at rest 134 mL, during stress 132 mL. Chambers here are | | | enlarged. End-systolic volume at rest 64 mL, during stress 64 mL - | | | also enlarged. Ejection fraction 53% during rest, 52% during | | | stress. TID is 1.01 below the threshold at which balanced ischemia | | | is felt probable. The resting images demonstrate some modest | | | diaphragmatic attenuation, minimal apical thinning fixed and stress | | | and rest, and the stress images demonstrate some calculated artifact | | | at the septal base, not supported on the prone or on the multiplanar | | | images. Prone images demonstrate taoism of the inferior wall | | | nicely. IMPRESSION 1. Slightly suboptimal exam that the heart | | | rate only reached 84%. 2. Chamber enlargement. 3. No convincing | | | evidence of prior infarct. 4. No convincing evidence of reversibility | | | with artifact as noted to include diaphragmatic attenuation and | | | apical thinning. Read by FEMI MARIE MD 05/25/2009 11:47 A | | | Electronically Signed by FEMI MARIE MD 05/25/2009 03:33 P | | | A P | | | [id number]/ cc: MD FEMI FOSS, | | | MD AMY SULLIVAN, DO | | + + + + + | Procedure Note | + + | Kalpesh Brown Conversion - 07/17/2019 2:13 AM PDT | | [id number] Page 1 | | RADIOLOGY CDU 71578/ | | OPO | | [facility] NAME: [address] | | [place] [address] | | | | DATE OF : 1960 | | | | ORDER NUMBER: [id number] | | EXAM DATE/TIME: 05/25/2009 08:00 A | | ORDERING PHYSICIAN: CHI FANG | | ORDER DETAIL: [id number] / / HNM | | EXAM DESCRIPTION: NM MYOCARDIAL GATED S+R | | | | NUCLEAR MEDICINE MYOCARDIAL GATED STRESS/REST STUDY 05/25/2009 | | | | HISTORY | | A 49-year-old male with chest pain. | | | | TECHNIQUE | | Stress Myoview examination. The patient exercised according to the Arthur | | protocol for 10 minutes 40 seconds. Resting heart rate of 50 raised to | | 144 beats per minute, 84% of maximal age-predicted heart rate. Resting | | blood pressure of 124/79 changed to 198/107. Exam stopped due to fatigue | | and dyspnea. | | | | Gated multiplanar and SPECT images through the heart. | | | | Resting images obtained after the uneventful administration of 14.9 mCi | | of ixnaphinuz-27o-vydbdgi Myoview. Stress images postinjection of 47.7 | | mCi of same. | | | | Resting ECG normal. Normal blood pressure and heart rate response with | | hypertensive response a bit exaggerated. Chest pain lasting only 1 or 2 | | seconds during the exam. Unifocal PVCs during the exam without ST | | segment changes. | | | | Note that the heart rate only reached 84% of the maximum predicted heart | | rate. This was due to the patient's fatigue during the exam, affords a | | potential imaging correlate with slightly lowered sensitivity. | | | | FINDINGS | | Wall motion is normal. | | | | End-diastolic volume at rest 134 mL, during stress 132 mL. Chambers here | | are enlarged. | | | | End-systolic volume at rest 64 mL, during stress 64 mL - also enlarged. | | | | | | Ejection fraction 53% during rest, 52% during stress. | | | | TID is 1.01 below the threshold at which balanced ischemia is felt | | probable. | | | | The resting images demonstrate some modest diaphragmatic attenuation, | | minimal apical thinning fixed and stress and rest, and the stress images | | demonstrate some calculated artifact at the septal base, not supported | | on the prone or on the multiplanar images. | | | | Prone images demonstrate taoism of the inferior wall nicely. | | | | IMPRESSION | | 1. Slightly suboptimal exam that the heart rate only reached 84%. | | 2. Chamber enlargement. | | 3. No convincing evidence of prior infarct. | | 4. No convincing evidence of reversibility with artifact as noted to | | include diaphragmatic attenuation and apical thinning. | | | | Read by | | FEMI MARIE MD 05/25/2009 11:47 A | | Electronically Signed by | | FEMI MARIE MD 05/25/2009 03:33 P | | | | A | | P | | [id number]/ | | cc: ANGELA MARADIAGA MD | | FEMI MARIE MD | | CHI FANG MD | | AMY BANEGAS DO | + + ECHO Complete (05/25/2009 7:50 AM PDT) + + | Specimen | + + | | + + + + + | Narrative | Performed At | + + + | [id number] | | | Page 1 ECHO [facility] NAME: | | | [place] [address] MEDICAL RECORD #: | | | [id number] | | | DATE OF : 1960 ORDER | | | NUMBER: [id number] EXAM DATE/TIME: 05/25/2009 07:34 PERFORMING | | | PHYSICIAN: Edwardo Gonzalez MD ORDER DETAIL: [id number] ORDER | | | DESCRIPTION: ECHO CARDIAC ADULT WITH DOPPLER COLOR FLOW | | | | | | INDICATIONS CHEST PAIN, DYSPNEA CONCLUSIONS | | | 1. Sinus rhythm with extra systolic beats. 2. Agree with | | | findings. FINDINGS -------- ECG rhythm: Sinus rhythm with extra | | | systolic beats. Study: A 2-dimensional transthoracic echocardiogram | | | with m-mode, spectral and color flow Doppler was perfomed. Study: | | | This was a technically adequate study. Left Ventricle: Overall left | | | ventricular systolic function is normal with, an EF between 65 - 70 %. | | | Left Ventricle: The left ventricle size is normal. Left Ventricle: | | | There is mild concentric left ventricular hypertrophy. Right | | | Ventricle: The right ventricle is moderately enlarged measuring | | | between 3.8 - 4.1 cm. Left Atrium: The left atrial size is normal | | | Left Atrium: , and the LA measures 3.8cm. Right Atrium: The right | | | atrium is mildly enlarged Right Atrium: , and the RA measures 5.3cm. | | | Aortic Valve: The aortic valve is trileaflet and appears structurally | | | normal. Aortic Valve: The aortic valve is mildly calcified. Aortic | | | Valve: Trace amount of aortic regurgitation. Aortic Valve: There is | | | no evidence of aortic stenosis. 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 Mitral Valve: Mild mitral | | | regurgitation is present. Tricuspid Valve: The tricuspid valve | | | appears structurally normal. Tricuspid Valve: Mild tricuspid | | | regurgitation present. Tricuspid Valve: Right ventricular systolic | | | pressure (pulmonary artery systolic pressure) is normal at < 35 mmHg. | | | Pulmonic Valve: Pulmonic valve appears structurally normal. | | | Pericardium: There is no pericardial effusion. IVC/Hepatic Veins: The | | | inferior vena cava is normal in size and collapses > 50 % with sniff, | | | indicating normal central venous pressures. MEASUREMENTS | | | IVC: 1.21 cm LA Major: 5.21 cm EDV(Teich): | | | 125.51 ml IVSd: 1.21 cm LVIDd: 5.13 cm LVPWd: 1.42 cm | | | LVOT Diam: 2.17 cm %FS: 37.57 % EF(Teich): 67.29 % | | | ESV(Teich): 41.04 ml IVSs: 1.34 cm LVIDs: 3.20 cm LVPWs: | | | 1.48 cm SV(Teich): 84.46 ml RA Major: 5.32 cm RVIDd: | | | 4.17 cm LAESV(A-L): 54.93 ml LAESV Index (A-L): 26.03 ml/m2 | | | LAAs A2C: 14.93 cm2 LAESV A-L A2C: 44.50 ml LALs A2C: 4.25 | | | cm LAAs A4C: 18.42 cm2 LAESV A-L A4C: 55.79 ml LALs A4C: | | | 5.16 cm Ao Diam: 3.91 cm AV Cusp: 2.23 cm LA Diam: 3.79 cm | | | LA/Ao: 0.96 %FS: 43.37 % EDV(Teich): 146.19 ml | | | EF(Teich): 73.99 % ESV(Teich): 38.01 ml IVSd: 1.57 cm | | | IVSs: 1.79 cm LVIDd: 5.48 cm LVIDs: 3.10 cm LVPWd: 1.32 | | | cm LVPWs: 1.79 cm SV(Teich): 108.18 ml D-E Excursion: | | | 1.89 cm E-F Major: 0.08 m/s HR: 43.51 BPM AV maxP.11 | | | mmHg AV meanP.33 mmHg AV Vmax: 1.74 m/s AV Vmean: 1.06 | | | m/s AV VTI: 35.51 cm [place] Vmax: 2.77 cm2 [place] (VTI): 2.54 | | | cm2 LVCI Dopp: 3.00 l/minm2 LVCO Dopp: 6.33 l/min HR: | | | 70.25 BPM LVOT maxP.78 mmHg LVOT meanP.02 mmHg LVSI | | | Dopp: 42.76 ml/m2 LVSV Dopp: 90.23 ml LVOT Vmax: 1.30 m/s | | | LVOT Vmean: 0.80 m/s LVOT VTI: 24.35 cm MV A Bravo: 0.70 m/s | | | MV DecT: 242.46 ms MV E Bravo: 0.91 m/s MV E/A Ratio: 1.31 | | | MV maxP.40 mmHg MV meanP.82 mmHg MV Vmax: 0.92 m/s | | | MV Vmean: 0.37 m/s MV VTI: 26.47 cm MVA (VTI): 3.40 cm2 | | | Septal e': 0.08 m/s Septal E/e': 11.24 HR: 60.55 BPM PV | | | maxP.04 mmHg PV meanP.39 mmHg PV Vmax: 0.87 m/s PV | | | Vmean: 0.55 m/s PV VTI: 19.09 cm RAP: 5 mmHg RVSP: | | | 21.72 mmHg TR maxP.72 mmHg TR Vmax: 2.04 m/s TV A Bravo: | | | 0.33 m/s TV Dec Major: 1.73 m/s2 TV Dec Time: 344.24 ms TV | | | E Bravo: 0.59 m/s TV E/A Ratio: 1.80 TV maxP.40 mmHg TV | | | meanP.44 mmHg TV Vmax: 0.59 m/s TV Vmean: 0.30 m/s TV | | | VTI: 22.88 cm Clinical Research Specialist: ANTHONY Authenticated by: Edwardo Tee | | | Carlos WINKLER Report Date/Time: 05-25-2009 10:19:52 | | + + + + + | Procedure Note | + + | Kalpesh Brown Conversion - 07/17/2019 2:13 AM PDT [id number] | | Page [address] [place] [address] NAME: [place] | | [id number] : ACCOUNT #: | | [id number]: DATE OF : 1960ORDER NUMBER: | | [id number] DATE/TIME: 05/25/2009 07:34PERFORMING PHYSICIAN: Edwardo Gonzalez | | MDORDER DETAIL: [id number] DESCRIPTION: ECHO CARDIAC ADULT WITH DOPPLER COLOR | | FLOW INDICATIONS | | -CHEST PAIN, DYSPNEA CONCLUSIONS 1. Sinus rhythm with extra systolic beats. 2. | | Agree with findings. FINDINGS--------ECG rhythm: Sinus rhythm with extra systolic | | beats.Study: A 2-dimensional transthoracic echocardiogram with m-mode, spectral and | | color flow Doppler was perfomed.Study: This was a technically adequate study.Left | | Ventricle: Overall left ventricular systolic function is normal with, an EF between 65 - | | 70 %.Left Ventricle: The left ventricle size is normal.Left Ventricle: There is mild | | concentric left ventricular hypertrophy.Right Ventricle: The right ventricle is | | moderately enlarged measuring between 3.8 - 4.1 cm.Left Atrium: The left atrial size is | | normalLeft Atrium: , and the LA measures 3.8cm.Right Atrium: The right atrium is mildly | | enlargedRight Atrium: , and the RA measures 5.3cm.Aortic Valve: The aortic valve is | | trileaflet and appears structurally normal.Aortic Valve: The aortic valve is mildly | | calcified.Aortic Valve: Trace amount of aortic regurgitation.Aortic Valve: There is no | | evidence of aortic stenosis.Mitral Valve: Mitral valve is thickened with nodular | | degeneration.Mitral Valve: Mild mitral regurgitation is present.Tricuspid Valve: The | | tricuspid valve appears structurally normal.Tricuspid Valve: Mild tricuspid | | regurgitation present.Tricuspid Valve: Right ventricular systolic pressure (pulmonary | | artery systolic pressure) is normal at < 35 mmHg.Pulmonic Valve: Pulmonic valve appears | | structurally normal.Pericardium: There is no pericardial effusion.IVC/Hepatic Veins: The | | inferior vena cava is normal in size and collapses > 50 % with sniff, indicating normal | | central venous pressures. MEASUREMENTS IVC: 1.21 cmLA Major: 5.21 | | cmEDV(Teich): 125.51 mlIVSd: 1.21 cmLVIDd: 5.13 cmLVPWd: 1.42 cmLVOT Diam: | | 2.17 cm%FS: 37.57 %EF(Teich): 67.29 %ESV(Teich): 41.04 mlIVSs: 1.34 cmLVIDs: | | 3.20 cmLVPWs: 1.48 cmSV(Teich): 84.46 mlRA Major: 5.32 cmRVIDd: 4.17 | | cmLAESV(A-L): 54.93 mlLAESV Index (A-L): 26.03 ml/m2LAAs A2C: 14.93 [id number] A-L | | A2C: 44.50 mlLALs A2C: 4.25 cmLAAs A4C: 18.42 [id number] A-L A4C: 55.79 mlLALs | | A4C: 5.16 cmAo Diam: 3.91 cmAV Cusp: 2.23 cmLA Diam: 3.79 cmLA/Ao: 0.96%FS: | | 43.37 %EDV(Teich): 146.19 mlEF(Teich): 73.99 %ESV(Teich): 38.01 mlIVSd: 1.57 | | cmIVSs: 1.79 cmLVIDd: 5.48 cmLVIDs: 3.10 cmLVPWd: 1.32 cmLVPWs: 1.79 | | cmSV(Teich): 108.18 mlD-E Excursion: 1.89 cmE-F Major: 0.08 m/sHR: 43.51 BPMAV | | maxP.11 mmHgAV meanP.33 mmHgAV Vmax: 1.74 m/Zabrina Vmean: 1.06 m/Zabrina VTI: | | 35.51 cmAVA Vmax: 2.77 cm2AVA (VTI): 2.54 [id number] Dopp: 3.00 l/[id number] Dopp: | | 6.33 l/minHR: 70.25 BPMLVOT maxP.78 mmHgLVOT meanP.02 mmHgLVSI Dopp: | | 42.76 ml/m2LVSV Dopp: 90.23 mlLVOT Vmax: 1.30 m/sLVOT Vmean: 0.80 m/sLVOT VTI: | | 24.35 cmMV A Bravo: 0.70 m/sMV DecT: 242.46 msMV E Bravo: 0.91 m/sMV E/A Ratio: | | 1.31MV maxP.40 mmHgMV meanP.82 mmHgMV Vmax: 0.92 m/sMV Vmean: 0.37 m/sMV | | VTI: 26.47 cmMVA (VTI): 3.40 [id number] e': 0.08 m/sSeptal E/e': 11.24HR: | | 60.55 BPMPV maxP.04 mmHgPV meanP.39 mmHgPV Vmax: 0.87 m/sPV Vmean: 0.55 | | m/sPV VTI: 19.09 cmRAP: 5 mmHgRVSP: 21.72 mmHgTR maxP.72 mmHgTR Vmax: | | 2.04 m/sTV A Bravo: 0.33 m/sTV Dec Major: 1.73 m/s2TV Dec Time: 344.24 msTV E Bravo: | | 0.59 m/sTV E/A Ratio: 1.80TV maxP.40 mmHgTV meanP.44 mmHgTV Vmax: 0.59 | | m/sTV Vmean: 0.30 m/sTV VTI: 22.88 cm Clinical Research Specialist: Deannaticated by: Edwardo Tee | | Carlos MDReport Date/Time: 05-25-2009 10:19:52 | | | |IVC: 1.21 cm | |LA Major: 5.21 cm | |EDV(Teich): 125.51 ml | |IVSd: 1.21 cm | |LVIDd: 5.13 cm | |LVPWd: 1.42 cm | |LVOT Diam: 2.17 cm | |%FS: 37.57 % | |EF(Teich): 67.29 % | |ESV(Teich): 41.04 ml | |IVSs: 1.34 cm | |LVIDs: 3.20 cm | |LVPWs: 1.48 cm | |SV(Teich): 84.46 ml | |RA Major: 5.32 cm | |RVIDd: 4.17 cm | |LAESV(A-L): 54.93 ml | |LAESV Index (A-L): 26.03 ml/m2 | |LAAs A2C: 14.93 cm2 | |LAESV A-L A2C: 44.50 ml | |LALs A2C: 4.25 cm | |LAAs A4C: 18.42 cm2 | |LAESV A-L A4C: 55.79 ml | |LALs A4C: 5.16 cm | |Ao Diam: 3.91 cm | |AV Cusp: 2.23 cm | |LA Diam: 3.79 cm | |LA/Ao: 0.96 | |%FS: 43.37 % | |EDV(Teich): 146.19 ml | |EF(Teich): 73.99 % | |ESV(Teich): 38.01 ml | |IVSd: 1.57 cm | |IVSs: 1.79 cm | |LVIDd: 5.48 cm | |LVIDs: 3.10 cm | |LVPWd: 1.32 cm | |LVPWs: 1.79 cm | |SV(Teich): 108.18 ml | |D-E Excursion: 1.89 cm | |E-F Major: 0.08 m/s | |HR: 43.51 BPM | |AV maxP.11 mmHg | |AV meanP.33 mmHg | |AV Vmax: 1.74 m/s | |AV Vmean: 1.06 m/s | |AV VTI: 35.51 cm | |[place] Vmax: 2.77 cm2 | |[place] (VTI): 2.54 cm2 | |LVCI Dopp: 3.00 l/minm2 | |LVCO Dopp: 6.33 l/min | |HR: 70.25 BPM | |LVOT maxP.78 mmHg | |LVOT meanP.02 mmHg | |LVSI Dopp: 42.76 ml/m2 | |LVSV Dopp: 90.23 ml | |LVOT Vmax: 1.30 m/s | |LVOT Vmean: 0.80 m/s | |LVOT VTI: 24.35 cm | |MV A Bravo: 0.70 m/s | |MV DecT: 242.46 ms | |MV E Bravo: 0.91 m/s | |MV E/A Ratio: 1.31 | |MV maxP.40 mmHg | |MV meanP.82 mmHg | |MV Vmax: 0.92 m/s | |MV Vmean: 0.37 m/s | |MV VTI: 26.47 cm | |MVA (VTI): 3.40 cm2 | |Septal e': 0.08 m/s | |Septal E/e': 11.24 | |HR: 60.55 BPM | |PV maxP.04 mmHg | |PV meanP.39 mmHg | |PV Vmax: 0.87 m/s | |PV Vmean: 0.55 m/s | |PV VTI: 19.09 cm | |RAP: 5 mmHg | |RVSP: 21.72 mmHg | |TR maxP.72 mmHg | |TR Vmax: 2.04 m/s | |TV A Rbavo: 0.33 m/s | |TV Dec Major: 1.73 m/s2 | |TV Dec Time: 344.24 ms | |TV E Bravo: 0.59 m/s | |TV E/A Ratio: 1.80 | |TV maxP.40 mmHg | |TV meanP.44 mmHg | |TV Vmax: 0.59 m/s | |TV Vmean: 0.30 m/s | |TV VTI: 22.88 cm | | | |Clinical Research Specialist: KVW | |Authenticated by: Edwardo Gonzalez MD | |Report Date/Time: 05-25-2009 10:19:52 | + + CT Head wo Contrast (05/24/2009 12:58 PM PDT) + + | Specimen | + + | | + + + + + | Narrative | Performed At | + + + | [id number] | | | Page 1 RADIOLOGY | | | CDU 88199/ | | | [facility] | | | CENTER NAME: [place] [address] | | | | | | | | | DATE OF : 1960 ORDER NUMBER: | | | [id number] EXAM DATE/TIME: 05/24/2009 12:47 P ORDERING PHYSICIAN: | | | VINAY HILL ORDER DETAIL: [id number] / / HCT EXAM DESCRIPTION: | | | CT HEAD UN | | | | | | CT HEAD WITHOUT CONTRAST 05/24/2009 HISTORY Vertigo and | | | dizziness. TECHNIQUE Axial noncontrast head CT. COMPARISON | | | No prior study for comparison. FINDINGS There is no | | | asymmetrically dense vessel about the [place]. No | | | hydrocephalus. Some minimal bifrontal volume loss of doubtful | | | significance. Only calcifications in senescent and typical | | | distributions. There is no evidence of parenchymal bleed, hemorrhage | | | or abnormal extraaxial fluid collection, and there is no clear | | | evidence of acute or vascular territory ischemia on this screening | | | examination over such. The calvaria demonstrates no aggressive | | | lesion. There is some mucosal thickening about the right maxillary | | | sinus. The patient is post apparent functional endoscopic sinus | | | surgery on the right. IMPRESSION Probably chronic sinus disease | | | on the right, but there is no evidence of acute or active | | | intracranial process. Read by FEMI MARIE MD 05/24/2009 | | | 01:19 P Electronically Signed by FEMI MARIE MD 05/24/2009 | | | 08:45 P P P | | | [id number]/[id number]/ cc: MD ANGELA AVENDAÑO MD | | | MD AMY HAM, DO | | + + + + + | Procedure Note | + + | Kalpesh Brown Conversion - 07/17/2019 2:13 AM PDT | | [id number] Page 1 | | RADIOLOGY CDU 71848/ | | OPO | | [facility] NAME: [address] | | [place] [address] | | | | DATE OF : 1960 | | | | ORDER NUMBER: [id number] | | EXAM DATE/TIME: 05/24/2009 12:47 P | | ORDERING PHYSICIAN: VINAY HILL | | ORDER DETAIL: [id number] / / HCT | | EXAM DESCRIPTION: CT HEAD UN | | | | CT HEAD WITHOUT CONTRAST 05/24/2009 | | | | HISTORY | | Vertigo and dizziness. | | | | TECHNIQUE | | Axial noncontrast head CT. | | | | COMPARISON | | No prior study for comparison. | | | | FINDINGS | | There is no asymmetrically dense vessel about the [place]. No | | hydrocephalus. Some minimal bifrontal volume loss of doubtful | | significance. Only calcifications in senescent and typical | | distributions. There is no evidence of parenchymal bleed, hemorrhage or | | abnormal extraaxial fluid collection, and there is no clear evidence of | | acute or vascular territory ischemia on this screening examination over | | such. | | | | The calvaria demonstrates no aggressive lesion. There is some mucosal | | thickening about the right maxillary sinus. The patient is post apparent | | functional endoscopic sinus surgery on the right. | | | | IMPRESSION | | Probably chronic sinus disease on the right, but there is no evidence of | | acute or active intracranial process. | | | | Read by | | FEMI MARIE MD 05/24/2009 01:19 P | | Electronically Signed by | | FEMI MARIE MD 05/24/2009 08:45 P | | | | P | | P | | [id number]/ | | cc: VINAY HILL MD | | ANGELA MARADIAGA MD | | FEMI MARIE MD | | AMY BANEGAS DO | + + XR Chest 2 Vws (05/24/2009 11:31 AM PDT) + + | Specimen | + + | | + + + + + | Narrative | Performed At | + + + | [id number] | | | Page 1 RADIOLOGY | | | [facility] [address]/ | | | OPO [facility] | | | CENTER NAME: [place] [address] | | | | | | | | | DATE OF : 1960 ORDER NUMBER: | | | [id number] EXAM DATE/TIME: 05/24/2009 11:19 A ORDERING PHYSICIAN: | | | VINAY HILL ORDER DETAIL: [id number] / / HDI EXAM DESCRIPTION: | | | XR CHEST 2 VIEW | | | | | | TWO-VIEW CHEST X-RAY 05/24/2009 HISTORY Chest pain. TECHNIQUE | | | PA and lateral views of the chest, dual energy. COMPARISON No | | | prior study for comparison. FINDINGS Fixation plate about lower | | | cervical spine and kaden. Would correlate precise operative | | | history. Cardiomediastinum is normal in size and configuration. There | | | is evidence of chronic hilar parenchymal lung disease and scarring. | | | No effusion. Bones are normal for age. IMPRESSION The patient's | | | acute chest pain is not explained by this exam although there are | | | findings which are chronic in appearance. Read by FEMI Adrian | | | MD FRANK 05/24/2009 12:19 P Electronically Signed by FEMI Adrian | | | MD RFANK 05/24/2009 08:45 P P DT: | | | 05/24/2009 05:38 P [id number]/[id number]/ cc: VINAY HILL MD | | | MD FEMI FOSS MD JOSEPH | | | P BASSAM, | | + + + + + | Procedure Note | + + | Kalpesh Brown Conversion - 07/17/2019 2:13 AM PDT | | [id number] Page 1 | | RADIOLOGY CDU [id number]/ | | OPO | | [facility] NAME: PINA GAY | | [place] [address] | | | | DATE OF : 1960 | | | | ORDER NUMBER: [id number] | | EXAM DATE/TIME: 05/24/2009 11:19 A | | ORDERING PHYSICIAN: VINAY HILL | | ORDER DETAIL: 7000 / / HDI | | EXAM DESCRIPTION: XR CHEST 2 VIEW | | | | TWO-VIEW CHEST X-RAY 05/24/2009 | | | | HISTORY | | Chest pain. | | | | TECHNIQUE | | PA and lateral views of the chest, dual energy. | | | | COMPARISON | | No prior study for comparison. | | | | FINDINGS | | Fixation plate about lower cervical spine and kaden. Would correlate | | precise operative history. Cardiomediastinum is normal in size and | | configuration. There is evidence of chronic hilar parenchymal lung | | disease and scarring. No effusion. Bones are normal for age. | | | | IMPRESSION | | The patient's acute chest pain is not explained by this exam although | | there are findings which are chronic in appearance. | | | | | | Read by | | FEMI MARIE MD 05/24/2009 12:19 P | | Electronically Signed by | | FEMI MARIE MD 05/24/2009 08:45 P | | | | P | | P | | [facility][id number]/ | | cc: VINAY HILL MD | | ANGELA MARADIAGA MD | | FEMI MARIE MD | | AMY BANEGAS DO | + + documented in this encounter Visit Diagnoses + + | Diagnosis | + + | Chest pain, unspecified | + + | Remote Device [...]
--- OUTSIDE RECORDS SUMMARY | ~2020-08-06 | XMS | Encounter Summary ---
Demographics + + + | Address | [address] | | | [place] [address] | + + + | Home Phone [...] Providers + +------+ + | Care Software Applications Specialist Name | Role | Phone | + +------+ + | Kirk French MD | PCP | | + +------+ + Reason for Visit + +--------+ + | Reason | Onset | Comments | | | Date | | + +--------+ + | Referral | 01/30/ | | | | 2019 | | + +--------+ + Encounter Details +--------+ + + + + | Date | Type | Department | Care Team | Description | +--------+ + + + + | 01/30/ | Telephone | [facility] | Emmanuel Daniel MD | Referral | | 2019 | | GASTROENTEROLOGY | [address], [place] | | | | | [address] | [address] [place], [place] | | | | | [address] [place], [place] | [address] | | | | | [address] | | | | | | [phone] | | | +--------+ + + + [...] encounter Miscellaneous Notes Telephone Encounter - Kailyn Gutierrez CMA - 02/07/2019 11:57 AM PDTLeft a voicemail that Brea Daniel declines to refer patient to [facility], the referral will have to come his primary care physician. Copy of phone notes routed to his PCP. elephone Encounter - Kaylynn Copeland RN - 02/07/2019 9:[address], referral should come from his PCP. elephone Encounter - Kailyn Gutierrez CMA - 2018 9:[address] Daniel's desk to review and advise. elephone Encounter - Monica Kenny - 01/31/20 19 3:18 PM PDTPatient called in asking for a referral to be sent to [facility]. When he saw Dr. Haleigh johnson he had mentioned getting another opinion from him. He tried getting a referral sent fro m his PCP but he says [facility] will not accept it, that they denied it. He says the referral has to come from Dr. Daniel. He gave me all the information. ATT: [facility] for di arrhea/IBS Their phone number is [phone] Thank you Electronically signed by Monica Kenny at 0 01/30/2019 3:37 PM PDTdocumented in this encounter Plan of [...] Dx); | | | | | [place] [address] | Pacemaker; | | | | | [phone] | Sinoatrial node | | | | | | dysfunction (HCC) | | | | | | with symptomatic | | | | | | bradycardia | +--------+ + + + + | 08/21/ | Implant | Cardiology | Daljit Singletary, | Remote Device | | 2019 | Monitor | | MD [address] | Interrogation | | | | | [place], | (Primary Dx); | | | | | [place] [address] | Pacemaker; | | | | | [phone] | Sinoatrial node | | | | | | dysfunction (HCC) | | | | | | with symptomatic | | | | | | bradycardia | +--------+ + + + + | 08/21/ | Implant | Cardiology | Daljit Singletary, | Remote Device | | 2019 | Monitor | | MD [address] | Interrogation | | | | | [place], | (Primary Dx); | | | | | [place] [address] | Pacemaker; | | | | | [phone] | Sinoatrial node | | | | | | dysfunction ([facility]) | | | | | | with symptomatic | | | | | | bradycardia | +--------+ + + + + | 08/21/ | Implant | Cardiology | Daljit Singletary, | Remote Device | | 2019 | Monitor | | MD [address] | Interrogation | | | | | [place], | (Primary Dx); | | | | | [place] [address] | Pacemaker; | | | | | [phone] | Sinoatrial node | | | | | | dysfunction (HCC) | | | | | | with symptomatic | | | | | | bradycardia | +--------+ + + + + | 08/21/ | Implant | Cardiology | Daljit Singletary, | Remote Device | 2019 | Monitor | | [address] [facility] | Interrogation | | | | | [place], | (Primary Dx); | | | | | [place] [address] | Pacemaker; | | | | | [phone] | Sinoatrial node | | | | [...] | | | | | | [address] [place], | | | | | | [place] [address] | | | | | | [phone] | | | | | | | | +--------+ + + + + documented as of this encounter Visit Diagnoses Not on filedocumented in this encounter"
--- OUTSIDE RECORDS SUMMARY | ~2020-08-06 | XMS | Encounter Summary ---
Demographics + + + | Address | [address] | | | [place] [address] | + + + | Home Phone [...] Providers + +------+ + | Care Continuous Pillowcase Cutter Name | Role | Phone | [...] + + | 09/13/ | Office | [facility] | Bahman Gant MD | Other dysphagia | | 2013 | Visit | OTOLARYNGOLOGY [address] | [address] | (Primary Dx) | | | | [address] | [address] [place], [place] | | | | | [place], [place] | [address] | | | | | [address] | | | | | | [phone] | | | +--------+---------+ + + + [...] documented in this encounter Progress Notes Bahman Gnat MD - 09/13/2013 5:46 PM PDTSee dictation #[id number] signed by Joseph Gant MD at 09/13/2013 5:52 PM Bahman Lamb MD - 09/13/2013 12:00 AM PDT ENT AND AUDIOLOGY [address] [place] [address] FAX: [phone] OFFICE VISIT The patient gives a history [...] Bahman Gant MD / [place] JOB #: [id number] signed by Bahman Gant MD at 09/14/2013 12:08 PM PDTdocumente d in this encounter Plan of Treatment +--------+ + + + + | Date | Type | Specialty | Care Team | Description | +--------+ + + + + | 08/21/ | Implant | Cardiology | Daljit Singletary, | Remote Device | | 2019 | Monitor | | MD [address] | Interrogation | | | | | [place], | (Primary Dx); | | | | | [place] [address] | Pacemaker; | | | | | [phone] | Sinoatrial node | | | | | | dysfunction (HCC) | | | | | | with symptomatic | | | | | | bradycardia | +--------+ + + + + | 08/21/ | Implant | Cardiology | Daljit Singletary, | Remote Device | | 2019 | Monitor | | MD [address] | Interrogation | | | | | [place], | (Primary Dx); | | | | | [place] [address] | Pacemaker; | | | | | [phone] | Sinoatrial node | | | | | | dysfunction (HCC) | | | | | | with symptomatic | | | | | | bradycardia | +--------+ + + + + | 08/21/ | Implant | Cardiology | Daljit Singletary, | Remote Device | | 2019 | Monitor | | MD [address] | Interrogation | | | | | [place], | (Primary Dx); | | | | | [place] [address] | Pacemaker; | | | | | [phone] | Sinoatrial node | | | | | | dysfunction (HCC) | | | | | | with symptomatic | | | | | | bradycardia | +--------+ + + + + | 08/21/ | Implant | Cardiology | Daljit Singletary, | Remote Device | | 2019 | Monitor | | MD [address] | Interrogation | | | | | [place], | (Primary Dx); | | | | | [place] [address] | Pacemaker; | | | | | [phone] | Sinoatrial node | | | | | | dysfunction (HCC) | | | | | | with symptomatic | | | | | | bradycardia | +--------+ + + + + | 08/21/ | Implant | Cardiology | Daljit Singletary, | Remote Device | | 2019 | Monitor | | MD [address] | Interrogation | | | | | [place], | (Primary Dx); | | | | | [place] [address] | Pacemaker; | | | | | [phone] | Sinoatrial node | | | | [...] W | | | | | | [place], | | | | | | [place] [address] | | | | | | [phone] | | | | | | | [...] Other dysphagia - Primary | + + | Remote [...]
--- OUTSIDE RECORDS SUMMARY | ~2020-08-06 | XMS | Encounter Summary ---
Demographics + + + | Address | [address] | | | [place] [address] | + + + | Home Phone [...] Providers + +------+ + | Care Rn Long Term Care Name | Role | Phone | + [...] [address] | | | | | [place], | [place], | | | | | [place] [address] | [place] [address] | | | | | [phone] | [phone] | | | | | | | [...] 2019 | Monitor | | [address] | Interrogation | | | | | [place], | (Primary Dx); | | | | | [place] [address] | Pacemaker; | | | | | [phone] | Sinoatrial node | | | | | | dysfunction (HCC) | | | | | | with symptomatic | | | | | | bradycardia | +--------+ + + + + | 08/21/ | Implant | Cardiology | Daljit Singletary, | Remote Device | | 2020 | Monitor | | MD [address] | Interrogation | | | | | [place], | (Primary Dx); | | | | | [place] [address] | Pacemaker; | | | | | [phone] | Sinoatrial node | | | | | | dysfunction (HCC) | | | | | | with symptomatic | | | | | | bradycardia | +--------+ + + + + | 08/21/ | Implant | Cardiology | Daljit Singletary, | Remote Device | | 2019 | Monitor | | MD [address] | Interrogation | | | | | [place], | (Primary Dx); | | | | | [place] [address] | Pacemaker; | | | | | [phone] | Sinoatrial node | | | | | | dysfunction (HCC) | | | | | | with symptomatic | | | | | | bradycardia | +--------+ + + + + | 08/21/ | Implant | Cardiology | Daljit Singletary, | Remote Device | | 2019 | Monitor | | MD [address] | Interrogation | | | | | [place], | (Primary Dx); | | | | | [place] [address] | Pacemaker; | | | | | [phone] | Sinoatrial node | | | | | | dysfunction (HCC) | | | | | | with symptomatic | | | | | | bradycardia | +--------+ + + + + | 08/21/ | Implant | Cardiology | Daljit Singletary, | Remote Device | | 2019 | Monitor | | MD [address] | Interrogation | | | | | [place], | (Primary Dx); | | | | | [place] [address] | Pacemaker; | | | | | [phone] | Sinoatrial node | | | | | | dysfunction ([facility]) | | | | [...] | | | | | | [place] [address] | | | | | | [phone] | | | | | | | | +--------+ + + + + documented as of this encounter Visit Diagnoses Not on filedocumented in this encounter"
--- OUTSIDE RECORDS SUMMARY | ~2020-08-06 | XMS | Encounter Summary ---
Demographics + + + | Address | [address] | | | [place] [address] | + + + | Home Phone [...] Providers + +------+ + | Care Collar Sewer Name | Role | Phone | [...] [address] | | | | | [place], | [place], | | | | | [place] [address] | [place] [address] | | | | | [phone] | [phone] | | | | | | | [...] 2019 | Monitor | | [address] | Interrogation | | | | | [place], | (Primary Dx); | | | | | [place] [address] | Pacemaker; | | | | | [phone] | Sinoatrial node | | | | | | dysfunction (HCC) | | | | | | with symptomatic | | | | | | bradycardia | +--------+ + + + + | 08/21/ | Implant | Cardiology | Daljit Singletary, | Remote Device | | 2020 | Monitor | | MD [address] | Interrogation | | | | | [place], | (Primary Dx); | | | | | [place] [address] | Pacemaker; | | | | | [phone] | Sinoatrial node | | | | | | dysfunction (HCC) | | | | | | with symptomatic | | | | | | bradycardia | +--------+ + + + + | 08/21/ | Implant | Cardiology | Daljit Singletary, | Remote Device | | 2019 | Monitor | | MD [address] | Interrogation | | | | | [place], | (Primary Dx); | | | | | [place] [address] | Pacemaker; | | | | | [phone] | Sinoatrial node | | | | | | dysfunction (HCC) | | | | | | with symptomatic | | | | | | bradycardia | +--------+ + + + + | 08/21/ | Implant | Cardiology | Daljit Singletary, | Remote Device | | 2019 | Monitor | | MD [address] | Interrogation | | | | | [place], | (Primary Dx); | | | | | [place] [address] | Pacemaker; | | | | | [phone] | Sinoatrial node | | | | | | dysfunction (HCC) | | | | | | with symptomatic | | | | | | bradycardia | +--------+ + + + + | 08/21/ | Implant | Cardiology | Daljit Singletary, | Remote Device | | 2019 | Monitor | | MD [address] | Interrogation | | | | | [place], | (Primary Dx); | | | | | [place] [address] | Pacemaker; | | | | | [phone] | Sinoatrial node | | | | [...] | | | | | | [place] [address] | | | | | | [phone] | | | | | | | | +--------+ + + + + documented as of this encounter Visit Diagnoses Not on filedocumented in this encounter"
--- OUTSIDE RECORDS SUMMARY | ~2020-08-06 | XMS | Encounter Summary ---
Demographics + + + | Address | [address] | | | [place] [address] | + + + | Home Phone [...] Team Providers + +------+ + | Care Stereo Map Plotter Operator Name | Role | Phone | [...] + + | 01/28/ | Refill | [facility] | Kirk French | Medication Refill | | 2019 | | [facility] | MD Bre[address] | | | | | [facility] | [address] | | | | | [address] | [place] [address] | | | | | [place], [place] | [phone] | | | | | [address] | | | | | | [phone] | | | +--------+--------+ + + + [...] | 2020 | Monitor | | [address] | Interrogation | | | | | [place], | (Primary Dx); | | | | | [place] [address] | Pacemaker; | | | | | [phone] | Sinoatrial node | | | | | | dysfunction (HCC) | | | | | | with symptomatic | | | | | | bradycardia | +--------+ + + + + | 08/21/ | Implant | Cardiology | Daljit Singletary, | Remote Device | | 2019 | Monitor | | MD [address] | Interrogation | | | | | [place], | (Primary Dx); | | | | | [place] [address] | Pacemaker; | | | | | [phone] | Sinoatrial node | | | | | | dysfunction ([facility]) | | | | | | with symptomatic | | | | | | bradycardia | +--------+ + + + + | 08/21/ | Implant | Cardiology | Daljit Singletary, | Remote Device | | 2019 | Monitor | | MD [address] | Interrogation | | | | | [place], | (Primary Dx); | | | | | [place] [address] | Pacemaker; | | | | | [phone] | Sinoatrial node | | | | | | dysfunction (HCC) | | | | | | with symptomatic | | | | | | bradycardia | +--------+ + + + + | 08/21/ | Implant | Cardiology | Shaista Singletarypawanotto, | Remote Device | | 2020 | Monitor | | MD [address] | Interrogation | | | | | [place], | (Primary Dx); | | | | | [place] [address] | Pacemaker; | | | | | [phone] | Sinoatrial node | | | | | | dysfunction (HCC) | | | | | | with symptomatic | | | | | | bradycardia | +--------+ + + + + | 08/21/ | Implant | Cardiology | Daljit Singletary, | Remote Device | | 2019 | Monitor | | MD [address] | Interrogation | | | | | [place], | (Primary Dx); | | | | | [place] [address] | Pacemaker; | | | | | [phone] | Sinoatrial node | | | | [...] | | | | | | [place] [address] | | | | | | [phone] | | | | | | | | +--------+ + + + + documented as of this encounter Visit Diagnoses Not on filedocumented in this encounter"
--- OUTSIDE RECORDS SUMMARY | ~2020-08-06 | XMS | Encounter Summary ---
Demographics + + + | Address | [address] | | | [place] [address] | + + + | Home Phone [...] Providers + +------+ + | Care Aircraft Cleaner Name | Role | Phone | + +------+ + | Kirk French MD | PCP | | + +------+ + Encounter Details +--------+ + + + + | Date | Type | Department | Care Team | Description | +--------+ + + + + | 12/26/ | Episode | [facility] | Kaylynn Copeland | | | 2019 | Changes | GASTROENTEROLOGY | [facility] | | | | | [address] | | | | | | [address] [place] [place] | | | | | | [address] | | | | | | [phone] | | | +--------+ + + + [...] | Monitor | | MD [address] [place] | Interrogation | | | | | [place], | (Primary Dx); | | | | | [place] [address] | Pacemaker; | | | | | [phone] | Sinoatrial node | | | | | | dysfunction ([facility]) | | | | | | with symptomatic | | | | | | bradycardia | +--------+ + + + + | 08/21/ | Implant | Cardiology | Daljit Singletary | Remote Device | | 2020 | Monitor | | MD [address] [place] | Interrogation | | | | | [place], | (Primary Dx); | | | | | [place] [address] | Pacemaker; | | | | | [phone] | Sinoatrial node | | | | | | dysfunction (HCC) | | | | | | with symptomatic | | | | | | bradycardia | +--------+ + + + + | 08/21/ | Implant | Cardiology | Daljit Singletary, | Remote Device | | 2019 | Monitor | | MD [address] [place] | Interrogation | | | | | [place], | (Primary Dx); | | | | | [place] [address] | Pacemaker; | | | | | [phone] | Sinoatrial node | | | | | | dysfunction (HCC) | | | | | | with symptomatic | | | | | | bradycardia | +--------+ + + + + | 08/21/ | Implant | Cardiology | Daljit Singletary, | Remote Device | | 2019 | Monitor | | MD [address] [place] | Interrogation | | | | | [place], | (Primary Dx); | | | | | [place] [address] | Pacemaker; | | | | | [phone] | Sinoatrial node | | | | | | dysfunction (HCC) | | | | | | with symptomatic | | | | | | bradycardia | +--------+ + + + + | 08/21/ | Implant | Cardiology | Daljit Singletary, | Remote Device | | 2019 | Monitor | | MD [address] [place] | Interrogation | | | | | [place], | (Primary Dx); | | | | | [place] [address] | Pacemaker; | | | | | [phone] | Sinoatrial node | | | | [...] W | | | | | | [place], | | | | | | [place] [address] | | | | | | [phone] | | | | | | | | +--------+ + + + + documented as of this encounter Visit Diagnoses Not on filedocumented in this encounter"
--- OUTSIDE RECORDS SUMMARY | ~2020-08-06 | XMS | Encounter Summary ---
Demographics + + + | Address | [address] | | | [place] [address] | + + + | Home Phone [...] [address] | | | | | [place], [place] | [address] | | | | | [address] | [place] [address] | | | | | [phone] | [phone] | | | | | | | [...] | Monitor | | MD [address] | Interrogation | | | | | [place], | (Primary Dx); | | | | | [place] [address] | Pacemaker; | | | | | [phone] | Sinoatrial node | | | | | | dysfunction (HCC) | | | | | | with symptomatic | | | | | | bradycardia | +--------+ + + + + | 08/21/ | Implant | Cardiology | Daljit Singletary, | Remote Device | | 2020 | Monitor | | MD [address] | Interrogation | | | | | [place], | (Primary Dx); | | | | | [place] [address] | Pacemaker; | | | | | [phone] | Sinoatrial node | | | | | | dysfunction (HCC) | | | | | | with symptomatic | | | | | | bradycardia | +--------+ + + + + | 08/21/ | Implant | Cardiology | Daljit Singletary, | Remote Device | | 2019 | Monitor | | MD [address] | Interrogation | | | | | [place], | (Primary Dx); | | | | | [place] [address] | Pacemaker; | | | | | [phone] | Sinoatrial node | | | | | | dysfunction (HCC) | | | | | | with symptomatic | | | | | | bradycardia | +--------+ + + + + | 08/21/ | Implant | Cardiology | Daljit Singletary, | Remote Device | | 2019 | Monitor | | MD [address] | Interrogation | | | | | [place], | (Primary Dx); | | | | | [place] [address] | Pacemaker; | | | | | [phone] | Sinoatrial node | | | | | | dysfunction (HCC) | | | | | | with symptomatic | | | | | | bradycardia | +--------+ + + + + | 08/21/ | Implant | Cardiology | Daljit Singletary, | Remote Device | | 2019 | Monitor | | MD [address] | Interrogation | | | | | [place], | (Primary Dx); | | | | | [place] [address] | Pacemaker; | | | | | [phone] | Sinoatrial node | | | | [...] [address] | | | | | | [place], | | | | | | [place] [address] | | | | | | [phone] | | | | | | | [...]
--- OUTSIDE RECORDS SUMMARY | ~2020-08-06 | XMS | Encounter Summary ---
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, | (Primary Dx); | | | | | [place] [address] | Pacemaker; | | | | | [phone] | Sinoatrial node | | | | | | dysfunction (HCC) | | | | | | with symptomatic | | | | | | bradycardia | +--------+ + + + + | 08/21/ | Implant | Cardiology | Daljit Singletary, | Remote Device | | 2019 | Monitor | | MD [address] | Interrogation | | | | | [place], | (Primary Dx); | | | | | [place] [address] | Pacemaker; | | | | | [phone] | Sinoatrial node | | | | | | dysfunction (HCC) | | | | | | with symptomatic | | | | | | bradycardia | +--------+ + + + + | 08/21/ | Implant | Cardiology | AnshuDaljit carmona, | Remote Device | | 2020 | Monitor | | MD [address] | Interrogation | | | | | [place], | (Primary Dx); | | | | | [place] [address] | Pacemaker; | | | | | [phone] | Sinoatrial node | | | | | | dysfunction (HCC) | | | | | | with symptomatic | | | | | | bradycardia | +--------+ + + + + | 08/21/ | Implant | Cardiology | Daljit Singletary, | Remote Device | | 2019 | Monitor | | MD [address] | Interrogation | | | | | [place], | (Primary Dx); | | | | | [place] [address] | Pacemaker; | | | | | [phone] | Sinoatrial node | | | | [...] | | | | | | [place] [address] | | | | | | [phone] | | | | | | | | +--------+ + + + + documented as of this encounter Visit Diagnoses Not on filedocumented in this encounter"
--- OUTSIDE RECORDS SUMMARY | ~2020-08-06 | XMS | Encounter Summary ---
Demographics + + + | Address | [address] | | | [place] [address] | + + + | Home Phone [...] Team Providers + +------+ + | Care Irrigation Installation Specialist Name | Role | Phone | [...] + + | 10/01/ | Office | [facility] | Mary Bradshaw | Injury of left foot, | | 2013 | Visit | CARE [address] | Guy Larkin MD | initial encounter | | | | [facility] [place] | [address] | (Primary Dx) | | | | [address] | [facility] [place] | | | | | [phone] | [address] | | | | | | | [...] es for two weeks Follow-up with Dr. Amanad Cold packs for 15 to 2 to0 minutes 3 or 4 times daily documented in this encounter Progress Notes Kitty Montoya - 10/01/2014 6:57 PM PSTCalled patient to inform him to geovany tape toes for two weeks, follow-up with Dr. Amanda, and use cold packs for 15-20 minutes 3-[address] p er [address] Bradshaw. Patient voiced understanding. Electronically signed by Kitty Montoya at 12:57 PM Renetta Cruz RN - 10/01/2014 3:17 PM PSTPatient left before visit c omplete, stating he has been here for three and half hours. He states he needs to waste picker hi s spouse. I provided patient with Dr. Bradley's card so he may contact us for results. Patient's best phone number: [phone] Renetta Lockwood RN Mary De La Fuente MD - 10/01/2014 2:12 PM PSTFrventura Sanchez presents with pain in his right [...] 2019 | Monitor | | MD [facility] | Interrogation | | | | | [facility] [place], | (Primary Dx); | | | | | [place] [address] | Pacemaker; | | | | | [phone] | Sinoatrial node | | | | | | dysfunction (HCC) | | | | | | with symptomatic | | | | | | bradycardia | +--------+ + + + + | 08/21/ | Implant | Cardiology | Daljit Singletary, | Remote Device | | 2019 | Monitor | | MD [address] | Interrogation | | | | | [place], | (Primary Dx); | | | | | [place] [address] | Pacemaker; | | | | | [phone] | Sinoatrial node | | | | | | dysfunction (HCC) | | | | | | with symptomatic | | | | | | bradycardia | +--------+ + + + + | 08/21/ | Implant | Cardiology | Daljit Singletary, | Remote Device | | 2019 | Monitor | | MD [address] | Interrogation | | | | | [place], | (Primary Dx); | | | | | [place] [address] | Pacemaker; | | | | | [phone] | Sinoatrial node | | | | | | dysfunction (HCC) | | | | | | with symptomatic | | | | | | bradycardia | +--------+ + + + + | 08/21/ | Implant | Cardiology | Daljit Singletary, | Remote Device | | 2019 | Monitor | | MD [address] | Interrogation | | | | | [place], | (Primary Dx); | | | | | [place] [address] | Pacemaker; | | | | | [phone] | Sinoatrial node | | | | | | dysfunction (HCC) | | | | | | with symptomatic | | | | | | bradycardia | +--------+ + + + + | 08/21/ | Implant | Cardiology | Daljit Singletary, | Remote Device | 2019 | Monitor | | MD Chiquis Oro | Interrogation | | | | | [place], | (Primary Dx); | | | | | [place] [address] | Pacemaker; | | | | | [phone] | Sinoatrial node | | | | [...] W | | | | | | [place], | | | | | | [place] [address] | | | | | | [phone] | | | | | | | [...] + | Kevin, Rad Results In - 10/01/2014 5:08 PM PST [...] + | MISCELLANEOUS LAB | | | [phone] | + +---------+ + + | MISCELANIOUS LAB | | | [phone] | + +---------+ + + documented in this encounter Visit Diagnoses + + | Diagnosis | + + | Injury of left foot, initial encounter - Primary | + + | Remote [...]
--- OUTSIDE RECORDS SUMMARY | ~2020-08-06 | XMS | Encounter Summary ---
Demographics + + + | Address | [address] [place] [address] [address] | | | [place] [address] | + + + | Home Phone [...] [place] | | | | | [address] | | + + + + + Care Team Providers + +------+ + | Care Workers' Compensation Mediator Name | Role | Phone | + [...] Chest pain | Farooq Almaguer, | [address] | | | | | Bradycardia | DO [address] | | | | | Procedures | Yao Booth | [facility] | | | | | | [facility] | Health and | | | | | TRANSTHORACI | [facility] [place] | Healing, | | | | | C | [address] | [address] | | | | | ECHOCARDIOGR | Phone: | [place], [place] | | | | | AM, ADULT | [phone] | [address] | | | | | | Fax: | Phone: | | | | | | [phone] | [phone] | +--------+--------+ + + + + Reason [...] | | | | | | [facility] | | | | | | | [facility] | | | | | | [facility] | | | | | | | [facility] [address] | | | | | [address] | | | | | | | [place], | | | | | | | [place] [address] | | | | | | | Phone: | | | | | | | [phone] | | | | | | | Fax: | | | | | | | [phone] | | +--------+--------+ + + + + Encounter Details +--------+---------+ + + + | Date | Type | Department | Care Team | Description | +--------+---------+ + + + | 02/03/ | Office | Cardiology General | Arlette Drew, | Chest pain (Primary | | 2010 | Visit | at [facility] [address] | MD | Dx); Bradycardia; | | | | [facility] | | Pacemaker | | | | Health and Healing, | | | | | | Building | | | | | | [place], [place] | | | | | | [address] | | | | | | [phone] | | | +--------+---------+ + + + [...] per Dr. Drew's note. Farooq Jamil DO Manager Credit Clinical rn gastroenterology/ Division of Cardiovascular Medicine Yajaira Borges, [place] - 02/09/2011 12:59 PM PDT PACEMAKER HISTORY Primary Care Provider: Darion Holden DO Hospital Director: Arlette Drew MD Moe Sanchez is a [...] rate drop response feature. Plan RTC 6mos Arlette Camacho Md - 02/03/2011 2:59 PM PDT CARDIOLOGY NEW PATIENT VISIT Moe Sanchez is a 50 y.o. male who is referred by Darion Holden for the evaluation of n ear syncopal symptoms PCP: Darion Holden DO Subjective: is a 50 y/m with hx. Of HTN, symptomatic bradycardia S/p Medtronic d ual chamber permanent pacemaker implantation on 06/14/09 in [place], Chronic smoker, mild DIDIER, bip olar disorder with anxiety who presents for second opinion regarding his syncopal episodes. Pt. started noticing dizzy spells and episodes of syncope about 3 years ago , pacemaker was put at the recommendation of Hospital Director Dr. Singletary from [place]. [place]. Pt. states lala bhatti was put>1 [...] form tilt table testing but NA at [facility] May need to involve endocrine and [...] plan was formulated with my attending physici bob DREW MD CARDIOLOGY - GENERAL [facility] Mailcode: Ch9a [facility], 9th [facility] [address] documented in this en counter Miscellaneous Notes Scan - Other, Faculty - 02/20/2011 12:00 AM PDT can - Unknown - 011 12:00 AM PDTAssociated Order(s): OUTSIDE CARDIOLOGY Scan - Unknown - 02/03/2011 12:00 AM PDT Scan - Unknown - 02/03/2011 12:00 AM PDT documented in this encounter Plan of Treatment + +------+--------+ [...] + + + | [facility] ([facility]) | [facility] | | [facility] [place] [address] | REGIONAL | | [place] [address] | LABORATORY | + + + + + + + + | Performing | Address | City/State/Zipcode | Phone Number | | Organization | | | | + + + + + | [facility] | [address] | [place] [address] | | | LABORATORY | | | [...] [facility] ([address] [facility]) | | | [facility] [place] [address] | | | [place] [address] | | + + + + + + + + | Performing | Address | City/State/Zipcode | Phone Number | | Organization | | | | + + + + + | [facility] | [address] | [place] [address] | | | LABORATORY | | | [...] | | | DEPARTMENT | | | [place] | | | OF | | | [...] | [facility] DEPARTMENT OF | [address] | [place] [address] | | | PATHOLOGY | [address] [...] + | [facility] DEPT OF | [address] [facility] | [place], [place] | | | CARDIOLOGY | [address] | [address] | | + + + + + [...] DEPT OF | [address] | [place], [place] | | | CARDIOLOGY | [address] | [address] | | + + + + + [...] view image for the detailed interpretation from [employer] results. | CARDIOLOGY | + + + + + + + + | Performing | Address | City/State/Zipcode | Phone Number | | Organization | | | | + + + + + | [facility] | [address] | [place], [place] | | | CARDIOLOGY | [address] | [address] | | + + + + + documented in this encounter Visit Diagnoses + + | Diagnosis | + + | Chest pain - Primary Chest pain, unspecified | + + | Bradycardia Other specified cardiac dysrhythmias | + + | Pacemaker Cardiac pacemaker in situ | + + documented in this encounter
--- OUTSIDE RECORDS SUMMARY | ~2020-08-06 | XMS | Encounter Summary ---
Demographics + + + | Address | [address] | | | [place] [address] | + + + | Home Phone [...] Team Providers + +------+ + | Care Spreader Box Operator Name | Role | Phone [...] + + | 01/05/ | Office | [facility] | Silvia, | Pacemaker - | | 2018 | Visit | CARDIOLOGY [address] | [address] | Medtronic - [id number] | | | | [place], | [place], | [place] - Implanted | | | | [place] [address] | [place] [address] | 06/14/2009 (Primary | | | | [phone] | [phone] | Dx); Chest pain, | | | [...] involving | | | | | | asa'carsarmiut coronary | | | | | | artery of asa'carsarmiut | | | | | | heart [...] of non-critical coronary artery d isease involving asa'carsarmiut coronary artery of asa'carsarmiut heart without angina pectoris, essential h ypertension, [...] pain. He went to the ER in [place] because th e NTG didn't relieved the pain. He was diagnosed with bronchitis. Otherwise he has had no ot her symptoms. He has had a good energy level. He tries to stay active. He has joined a [employer] and trying to exercise more often. [...] Preventative health care Coronary artery disease involving asa'carsarmiut coronary artery of asa'carsarmiut heart without angina pectoris Cannabis abuse, daily [...] by mouth every evening 90 tablet 0 Misc Natural Products (OSTEO BI-FLEX/5-LOXIN ADVANCED PO) [...] 3RD DOSE, CALL 911 100 tablet 3 [place]-3 Fatty Acids (SALMON OIL-1000 PO) CAPS, one [...] RESULTS reviewed during visit today primarily from [facility]: LIPID Lab Results Component Value Date [...] 131 (A) 10/18/2017 I reviewed records from [facility] for office visit on 01/2017 whic h [...] overload. 2. Non-critical Coronary artery disease involving asa'carsarmiut coronary a rtery of asa'carsarmiut heart without angina pectoris: A. Normal exercise [...] cannot completely be ruled out . [facility] 12/25/13, shows non critical coronary artery [...] arrhythmia performed by Dr. Gambino at [facility] on 01/30/2013. Patient had spontaneous [...] to go back in 3 days to [place] for an attempt of ablation under general [...] stable device function. Estimated remaining [facility] longevity is 3.5 years.. 5. Lightheadedness and [...] this chart may have been created with [employer] voice recognition software. Occasi onal wrong-word [...] | Monitor | | MD [address] | Interrogation | | | | | [place], | (Primary Dx); | | | | | [place] [address] | Pacemaker; | | | | | [phone] | Sinoatrial node | | | | | | dysfunction (HCC) | | | | | | with symptomatic | | | | | | bradycardia | +--------+ + + + + | 08/21/ | Implant | Cardiology | Daljit Singletary, | Remote Device | | 2019 | Monitor | | MD [address] | Interrogation | | | | | [place], | (Primary Dx); | | | | | [place] [address] | Pacemaker; | | | | | [phone] | Sinoatrial node | | | | | | dysfunction (HCC) | | | | | | with symptomatic | | | | | | bradycardia | +--------+ + + + + | 08/21/ | Implant | Cardiology | Daljit Singletary, | Remote Device | | 2019 | Monitor | | MD [address] | Interrogation | | | | | [place], | (Primary Dx); | | | | | [place] [address] | Pacemaker; | | | | | [phone] | Sinoatrial node | | | | | | dysfunction (HCC) | | | | | | with symptomatic | | | | | | bradycardia | +--------+ + + + + | 08/21/ | Implant | Cardiology | Daljit Singletary, | Remote Device | | 2019 | Monitor | | MD [address] | Interrogation | | | | | [place], | (Primary Dx); | | | | | [place] [address] | Pacemaker; | | | | | [phone] | Sinoatrial node | | | | | | dysfunction (HCC) | | | | | | with symptomatic | | | | | | bradycardia | +--------+ + + + + | 08/21/ | Implant | Cardiology | Daljit Singletary, | Remote Device | | 2019 | Monitor | | MD [address] | Interrogation | | | | | [place], | (Primary Dx); | | | | | [place] [address] | Pacemaker; | | | | | [phone] | Sinoatrial node | | | | [...] | | | | | | [place] [address] | | | | | | [phone] | | | | | | | [...] involving | | | | | | asa'carsarmiut coronary | | | | | | artery of asa'carsarmiut | | | | | | heart [...] aneurysm | | | | | | ([facility]) | | + +--------+ + + + [...] MD | | | | | | ([id number]) on 01/06/2018 | | | | | [...] + + | Coronary artery disease involving asa'carsarmiut coronary artery of asa'carsarmiut heart without | | angina pectoris | + + | Hyperlipidemia, mixed Mixed hyperlipidemia | + + | Hypertension, unspecified type | + + | Syncope, unspecified syncope type | + + | Ascending thoracic aortic aneurysm (HCC) Thoracic aneurysm without mention of rupture | + + | Remote Device Interrogation [...]
--- OUTSIDE RECORDS SUMMARY | ~2020-08-06 | XMS | Encounter Summary ---
Demographics + + + | Address | [address] | | | [place] [address] | + + + | Home Phone [...] Team Providers + +------+ + | Care Dot Etcher Apprentice Name | Role | Phone | [...] | | | | | Aneurysmal | [place], | [address] | | | | | dilatation | ALISA SolisP | [place], | | | | | ([facility]) | [address] | [place] | | | | | Procedures | [address] | [address] | | | | | ECHO | [place], | Phone: | | | | | Complete | [place] | [phone] | | | | | | [address] | Fax: | | | | | | Phone: | [phone] | | | | | | [phone] | | | | | | | Fax: | | | | | | | [phone] | | +--------+--------+ + + + + [...] | Aneurysmal | [place], | [address] | | | | | dilatation | ALISA SolisP | [place], | | | | | ([facility]) | [address] | [place] | | | | | Procedures | [address] | [address] | | | | | ECHO | [place], | Phone: | | | | | Complete | [place] | [phone] | | | | | | [address] | Fax: | | | | | | Phone: | [phone] | | | | | | [phone] | | | | | | | Fax: | | | | | | | [phone] | | +--------+--------+ + + + + Encounter Details +--------+ + + + + | Date | Type | Department | Care Team | Description | +--------+ + + + + | 11/16/ | Hospital | [facility] | Silvia, | Aneurysmal | | 2017 | Encounter | MED CTR ECHO [address] | Irma, ACADEMIC ADMINISTRATOR [address] | dilatation (HCC) | | | | [address] [place] | [place], | | | | | [place] [address] | [place] [address] | | | | | [phone] | [phone] | | | | | | | [...] + + + +---------+ + + | [place]-3 Fatty | CAPS, one capsule by | [...] | 08/21/ | Implant | Cardiology | Sydni Singletary, | Remote Device | | 2019 | Monitor | | MD [address] | Interrogation | | | | | [place], | (Primary Dx); | | | | | [place] [address] | Pacemaker; | | | | | [phone] | Sinoatrial node | | | | | | dysfunction (HCC) | | | | | | with symptomatic | | | | | | bradycardia | +--------+ + + + + | 08/21/ | Implant | Cardiology | Sydni Singletary, | Remote Device | | 2019 | Monitor | | MD [address] | Interrogation | | | | | [place], | (Primary Dx); | | | | | [place] [address] | Pacemaker; | | | | | [phone] | Sinoatrial node | | | | | | dysfunction (HCC) | | | | | | with symptomatic | | | | | | bradycardia | +--------+ + + + + | 08/21/ | Implant | Cardiology | Sydni Singletary, | Remote Device | | 2019 | Monitor | | MD [address] | Interrogation | | | | | [place], | (Primary Dx); | | | | | [place] [address] | Pacemaker; | | | | | [phone] | Sinoatrial node | | | | | | dysfunction (HCC) | | | | | | with symptomatic | | | | | | bradycardia | +--------+ + + + + | 08/21/ | Implant | Cardiology | Sydni Singletary, | Remote Device | | 2019 | Monitor | | MD [address] | Interrogation | | | | | [place], | (Primary Dx); | | | | | [place] [address] | Pacemaker; | | | | | [phone] | Sinoatrial node | | | | | | dysfunction (HCC) | | | | | | with symptomatic | | | | | | bradycardia | +--------+ + + + + | 08/21/ | Implant | Cardiology | Sydni Singletary, | Remote Device | | 2019 | Monitor | | MD [address] | Interrogation | | | | | [place], | (Primary Dx); | | | | | [place] [address] | Pacemaker; | | | | | [phone] | Sinoatrial node | | | | [...] W | | | | | | [place], | | | | | | [place] [address] | | | | | | [phone] | | | | | | | [...] Patient Name VICTOR HUGO | | | [facility] [place] Number SARAH Patient | | | [id number] Date of Study 11/16/2017 Number | | | Visit Number [id number] | | | Referring Physician GURJIT TROY Number | | | ELIZABETHANGELIA SOLIS Date | | | of 1960 Home Theater Specialist ROMAINE | | | MARISSA TIPTON Age 57 year(s) Interpreting | | | GURJIT TROY | | | Nurse Quality SYDNI SINGLETARY, | | | | | | Gender Male Nurse | | | Stress Emergency Generator Mechanic Procedure Type of | | | Study [...] | | | EF | | | Vxxpqlxdn44% Left Ventricle Diastolic Dimension: 5.12 cm | [...] Volume: 46.33 ml | | | EF Ukiybxbvk77% | | | | | | Left [...] BARRY Room Number SARAH | | Patient [id number] Date of Study 11/16/2017 Number Visit Number | | [id number] Referring Physician GURJIT TROY | | Number RHYNARD IRMA Date of | | 1960 Home Theater Specialist ROMAINE TIPTON RDCS Age 57 year(s) | | Interpreting GURJIT TROY Nurse Quality | | SYDNI SINGLETARY MD | | [...] LA Volume: 46.33 ml | | EF Rjdwybjam40% Left Ventricle Diastolic Dimension: 5.12 cm Systolic [...] LA Volume: 46.33 ml | | EF Gdsknptpx73% | | | | Left Ventricle | [...]
--- OUTSIDE RECORDS SUMMARY | ~2020-08-06 | XMS | Encounter Summary ---
Demographics + + + | Address | [address] | | | [place] [address] | + + + | Home Phone [...] Team Providers + +------+ + | Care Tilesetter Name | Role | Phone | + +------+ + | Kirk French MD | PCP | | + +------+ + Reason for Visit +---------+--------+ + | Reason | Onset | Comments | | | Date | | +---------+--------+ + | Results | 03/07/ | [facility] | | | 2020 | | +---------+--------+ + Encounter Details +--------+ + + + + | Date | Type | Department | Care Team | Description | +--------+ + + + + | 03/07/ | Telephone | [facility] | Daljit Singletary, | Results ([facility]) | | 2020 | | CARDIOLOGY [address] | MD [address] [place] | | | | | [place], | [place], | | | | | [place] [address] | [place] [address] | | | | | [phone] | [phone] | | | | | | | [...] Telephone Encounter - Shabana Lama RN - 03/07/2020 11:16 AM PDTReceived scheduled [facility] remote transmission. Battery longevity estimates 9 months. Left voice message with lala carlos notifying of results and changing to monthly remote monitor. New schedule with l y dates starting in March mailed to patient. Electronically signed by: Shabana Lama RN 03/07/2020 11:18 AM documented in this e ncounter Plan of Treatment +--------+ + + + + | Date | Type | Specialty | Care Team | Description | +--------+ + + + + | 08/21/ | Implant | Cardiology | Daljit Singletary, | Remote Device | | 2019 | Monitor | | MD [address] [place] | Interrogation | | | | | [place], | (Primary Dx); | | | | | [place] [address] | Pacemaker; | | | | | [phone] | Sinoatrial node | | | | | | dysfunction (HCC) | | | | | | with symptomatic | | | | | | bradycardia | +--------+ + + + + | 08/21/ | Implant | Cardiology | Daljit Singletary, | Remote Device | | 2019 | Monitor | | MD [address] [place] | Interrogation | | | | | [place], | (Primary Dx); | | | | | [place] [address] | Pacemaker; | | | | | [phone] | Sinoatrial node | | | | | | dysfunction (HCC) | | | | | | with symptomatic | | | | | | bradycardia | +--------+ + + + + | 08/21/ | Implant | Cardiology | Daljit Singletary, | Remote Device | | 2019 | Monitor | | MD [address] [place] | Interrogation | | | | | [place], | (Primary Dx); | | | | | [place] [address] | Pacemaker; | | | | | [phone] | Sinoatrial node | | | | | | dysfunction (HCC) | | | | | | with symptomatic | | | | | | bradycardia | +--------+ + + + + | 08/21/ | Implant | Cardiology | Daljit Singletary, | Remote Device | | 2019 | Monitor | | MD [address] [place] | Interrogation | | | | | [place], | (Primary Dx); | | | | | [place] [address] | Pacemaker; | | | | | [phone] | Sinoatrial node | | | | | | dysfunction (HCC) | | | | | | with symptomatic | | | | | | bradycardia | +--------+ + + + + | 08/21/ | Implant | Cardiology | Daljit Singletary, | Remote Device | | 2020 | Monitor | | MD [address] [place] | Interrogation | | | | | [place], | (Primary Dx); | | | | | [place] [address] | Pacemaker; | | | | | [phone] | Sinoatrial node | | | | [...] | | | | | | [place] [address] | | | | | | [phone] | | | | | | | | +--------+ + + + + documented as of this encounter Visit Diagnoses Not on filedocumented in this encounter"
--- OUTSIDE RECORDS SUMMARY | ~2020-08-06 | XMS | Encounter Summary ---
Demographics + + + | Address | [address] | | | [place] [address] | + + + | Home Phone [...] Team Providers + +------+ + | Care Tea Taster Name | Role | Phone | + [...] | Ascending | Silvia, | [address] | | | | | aortic | Janeen, ORTHOTIC AND PROSTHETIC TECHNICIAN | [place], | | | | | aneurysm | [address] | [place] | | | | | ([facility]) | [address] | [address] | | | | | Procedures | [place], | Phone: | | | | | ECHO | [place] | [phone] | | | | | Complete | [address] | Fax: | | | | | | Phone: | [phone] | | | | | | [phone] | | | | | | | Fax: | | | | | | | [phone] | | +--------+--------+ + + + + [...] | MD [address] | [address] | | | | | hypertension | [address] | [place], | | | | | Sick sinus | [address] | [place] | | | | | syndrome | [place] | [address] | | | | | (HCC) | [address] | Phone: | | | | | Ventricular | Phone: | [phone] | | | | | premature | [phone] | Fax: | | | | | depolarizati | Fax: | [phone] | | | | | on | [phone] | | | | | | Tachycardia, | | | | | | | unspecified | | | | | | | | | | | | | | Atherosclero | | | | | | | tic heart | | | | | | | disease of | | | | | | | [place] | | | | | | | [...] + + | 01/01/ | Office | [facility] | Silvia, | Ascending thoracic | | 2020 | Visit | CARDIOLOGY [address] | PARISA [place] [address] | aortic aneurysm | | | | [address] [place], | [place], | (HCC) (Primary Dx); | | | | [place] [address] | [place] [address] | Coronary artery | | | | [phone] | [phone] | disease involving | | | | | | [place] coronary | | | | | | artery of [place] | | | | | | heart [...] encounter Patient Instructions Patient Instructions Vidhi Gillespie, Photographer News - 01/01/2020 7:30 AM PST1. Esau gibbons with current effective medical regiment. 2. He [...] of critical coronary artery disea se involving [place] coronary artery of [place] heart without angina pectoris, essential hyper tension, [...] for weight loss, he was defer to [facility], [facility] to have some sort of a [...] Preventative health care Coronary artery disease involving [place] coronary artery of [place] heart without angina pectoris Cannabis abuse, daily [...] ONE TABLET UNDER THE TONGUE EVERY 5 MA NUTES NEEDED FOR CHEST PAIN 250 tablet 0 nortriptyline (PAMELOR) 25 mg capsule Take 25 mg by mouth. [place]-3 Fatty Acids (SALMON OIL-1000 PO) CAPS, one capsule by mouth daily twice daily ondansetron (ZOFRAN ODT) 4 mg disintegrating tablet Take 4 mg by mouth every 8 hours as needed for Nausea. ondansetron (ZOFRAN) 4 mg tablet Take 4 mg by mouth. ONE TOUCH DELICA LANCETS [facility] Check glucose as [...] was found Confirmed by SYDNI SINGLETARY MD ([id number]) on 06/06/2019 3:43:10 PM LAB RESULTS reviewed during visit today primarily from [facility]: LIPID Lab Results Component Value [...] BNP 48 06/02/2019 I reviewed records from [facility] for office visit on 06/06/2019 wh ich is summarized in the HPI. RESULTS- I reviewed reports from [facility]: No results found. Above data and testing is reviewed this visit; testing below is historical data unless othe rwise specified. ASSESSMENT: 1. Non-critical Coronary artery disease involving [place] coronary artery of [place] heart wi thout angina pectoris: A.Normal exercise [...] he relates it to his anxiety. H e is on a medical regimen with aspirin, ARB, beta-edvin and statin. There are no signs or symptoms of overt congestive heart failure, and his physical exam shows no significant fluid retention. He is in class I- No symptoms; no limitations of activities of the [place] [employer] functional class. Heart failure [...] performed by Dr Juan Diego Gambino at [facility] on 01/30/2013.Patient had spontaneous PVC'sfr om [...] to go back in 3 days to [place] for an attempt of ablation under general [...] advised to having his MRI done in [place] at [facility] which has a repeat MRI protocol for such situations. Patient also will need echocardiogram for hi s next appointment to evaluate his ascending [...] departme , thought to have vasovagal symptoms. B.Today, 01/01/2020, [...] He has a non-MRI compatible device. Haleigh rodarte has been advised to having his MRI done in [place] at [facility] which has a repeat MRI protocol for such situations. Patient also will need echocardiogram for his next appointmen t to evaluate his ascending aorta Vidhi Clemente, Photographer News am acting as a scribe on behalf of, and in the prese nce of PARISA Lomas. - Vidhi Gillespie, Photographer News 01/01/2020 5:29 PM IJaneen ARNP, personally performed the services described in this documentati on, as scribed in my presence and it is both accurate and complete. -PARISA Lomas 01/01/2020 Portions of this chart may have been created with [employer] voice recognition software. Occasi onal wrong-word or [...] Interrogation | | | | | [place], | (Primary Dx); | | | | | [place] [address] | Pacemaker; | | | | | [phone] | Sinoatrial node | | | | | | dysfunction (HCC) | | | | | | with symptomatic | | | | | | bradycardia | +--------+ + + + + | 08/21/ | Implant | Cardiology | Sydni Singletary, | Remote Device | | 2019 | Monitor | | MD [address] | Interrogation | | | | | [place], | (Primary Dx); | | | | | [place] [address] | Pacemaker; | | | | | [phone] | Sinoatrial node | | | | | | dysfunction (HCC) | | | | | | with symptomatic | | | | | | bradycardia | +--------+ + + + + | 08/21/ | Implant | Cardiology | Sydni Singletary, | Remote Device | | 2020 | Monitor | | MD [address] | Interrogation | | | | | [place], | (Primary Dx); | | | | | [place] [address] | Pacemaker; | | | | | [phone] | Sinoatrial node | | | | | | dysfunction (HCC) | | | | | | with symptomatic | | | | | | bradycardia | +--------+ + + + + | 08/21/ | Implant | Cardiology | Sydni Singletary, | Remote Device | | 2019 | Monitor | | MD [address] | Interrogation | | | | | [place], | (Primary Dx); | | | | | [place] [address] | Pacemaker; | | | | | [phone] | Sinoatrial node | | | | | | dysfunction (HCC) | | | | | | with symptomatic | | | | | | bradycardia | +--------+ + + + + | 08/21/ | Implant | Cardiology | Sydni Singletary, | Remote Device | | 2019 | Monitor | | MD [address] | Interrogation | | | | | [place], | (Primary Dx); | | | | | [place] [address] | Pacemaker; | | | | | [phone] | Sinoatrial node | | | | [...] | | | | | | [place] [address] | | | | | | [phone] | | | | | | | [...] | | | | | | [place] | | | | | + +--------+ [...] + + | Coronary artery disease involving [place] coronary artery of [place] heart without | | angina pectoris | [...]
--- OUTSIDE RECORDS SUMMARY | ~2020-08-06 | XMS | Encounter Summary ---
Demographics + + + | Address | [address] | | | [place] [address] | + + + | Home Phone [...] Team Providers + +------+ + | Care Yarrow Gatherer Name | Role | Phone | + +------+ + | Kirk French MD | PCP | | + +------+ + Reason for Visit +--------+--------+ + | Reason | Onset | Comments | | | Date | | +--------+--------+ + | Other | 11/02/ | | | | 2016 | | +--------+--------+ + Encounter Details +--------+ + + + + | Date | Type | Department | Care Team | Description | +--------+ + + + + | 11/02/ | Telephone | [facility] | SunshinecherelleDaljit, | Other | | 2016 | | CARDIOLOGY [address] | [address] [place] | | | | | [place], | [place], | | | | | [place] [address] | [place] [address] | | | | | [phone] | [phone] | | | | | | | [...] us know so we can check with direct entry midwife to confirm and we will have learned [...] | Monitor | | MD [address] | Interrogation | | | | | [place], | (Primary Dx); | | | | | [place] [address] | Pacemaker; | | | | | [phone] | Sinoatrial node | | | | | | dysfunction ([facility]) | | | | | | with symptomatic | | | | | | bradycardia | +--------+ + + + + | 08/21/ | Implant | Cardiology | Daljit Singletary, | Remote Device | | 2020 | Monitor | | MD [address] | Interrogation | | | | | [place], | (Primary Dx); | | | | | [place] [address] | Pacemaker; | | | | | [phone] | Sinoatrial node | | | | | | dysfunction (HCC) | | | | | | with symptomatic | | | | | | bradycardia | +--------+ + + + + | 08/21/ | Implant | Cardiology | Daljit Singletary, | Remote Device | | 2019 | Monitor | | MD [address] [place] | Interrogation | | | | | [place], | (Primary Dx); | | | | | [place] [address] | Pacemaker; | | | | | [phone] | Sinoatrial node | | | | | | dysfunction (HCC) | | | | | | with symptomatic | | | | | | bradycardia | +--------+ + + + + | 08/21/ | Implant | Cardiology | Daljit Singletary, | Remote Device | | 2019 | Monitor | | MD [address] [place] | Interrogation | | | | | [place], | (Primary Dx); | | | | | [place] [address] | Pacemaker; | | | | | [phone] | Sinoatrial node | | | | | | dysfunction (HCC) | | | | | | with symptomatic | | | | | | bradycardia | +--------+ + + + + | 08/21/ | Implant | Cardiology | Daljit Singletary, | Remote Device | | 2019 | Monitor | | MD [address] [place] | Interrogation | | | | | [place], | (Primary Dx); | | | | | [place] [address] | Pacemaker; | | | | | [phone] | Sinoatrial node | | | | [...] | | | | | | [place] [address] | | | | | | [phone] | | | | | | | | +--------+ + + + + documented as of this encounter Visit Diagnoses Not on filedocumented in this encounter"
--- OUTSIDE RECORDS SUMMARY | ~2020-08-06 | XMS | Encounter Summary ---
Demographics + + + | Address | [id number] [place] [address] [address] | | | [place] [address] | + + + | Home Phone | | + + + | Preferred Language | Unknown | + + + | Marital Status | | + + + | Buddhist Affiliation | Unknown | + + + | Race | White | + + + | Ethnic Group | Not or | + + + Author + + + | Author | [facility] | + + + | Organization | [facility] | + + + | Address | Unknown | + + + | Phone | Unavailable | + + + Support + + + + + | Name | Relationship | Address | Phone | + + + + + | Rachel Valencia | ELIEZER | [place] | | | | | [address] | | + + + + + Care Team Providers + +------+ + | Care Pattern Marking Supervisor Name | Role | Phone | + +------+ + | Darion Holden DO | PCP | | + +------+ + Reason for Visit + +--------+ + | Reason | Onset | Comments | | | Date | | + +--------+ + | Lab Order | 10/03/ | | | | 2019 | | + +--------+ + Encounter Details +--------+ + + + + | Date | Type | Department | Care Team | Description | +--------+ + + + + | 10/03/ | Telephone | Digestive Health | Bridgette Rios, | Lab Order | | 2019 | | Center at [facility] [address] | MD [address] | | | | | [address] [facility] | [place], [place] | | | | | for Health and | [address] | | | | | [facility] | [phone] | | | | | [place], [place] | | | | | | [address] | | | | | | [phone] | | | +--------+ + + + [...] this encounter Miscellaneous Notes Telephone Encounter - Michele Brunson RN - 10/18/2019 4:23 PM PSTI spoke with Moe Sanchez on the phone. I let him know Dr. Rios sent in a prescription for hyoscyamine that sould help with the cramping and diarrhea. We then discussed the dosing schedule of the medi cation. He stated that he's been taking both hyoscyamine and dicyclomine. He got these from his GI doctor in [place] who referred him to us. I asked if he's taking the hyoscyamine 4x a day and he states he is. Neither of these medications have helped. I let him know updat e Dr. Rios. From: Bridgette Rios MD Sent: 10/18/2019 3:50 PM PST To: Michele Brunson RN ----- Message from Bridgette Rios MD sent at 10/18/2019 3:50 PM PST ----- Michele- can you give him a quick call back to let him know I called him in some hyoscyamine ? This should help with the cramping specifically but should also slow down the diarrhea lainey e. He should take it 4 times per day (for example: breakfast, lunch, dinner and bedtime). I hope this helps him! Thanks Bridgette elephone Encount er - Allyson Diehl RN - 10/03/2019 1:[address] Rios: O&P, giardia, stool culture, crypto and isosporidium, fecal calpro, pancreatic elastase, enteropathogenic e coli. Called in orders to staff at [facility], unfortunately Amilcar had already left. They also aske d that I fax orders to them, orders faxed. [facility] fax#[phone] signed by Allyson Diehl RN at 10/03/2019 2:14 PM PSTTelephone Encounter - Yancy Alexandera - 10/03/2019 1:42 PM PSTPerson calling? (Pham ent, spouse, caregiver, medical office, etc): Ines from [facility] lab Reason for call: needing verbal orders for Pt labs that they never received. Pt sitting at lab Provider / Specialty: bonnie/ wanda henning Call back number confirmed? :yes Best call back number [phone] Caller would like a call back to discuss. Ok to leave a detailed message?: no Claudia RN She needed to page She will call lab back when she gets clarification on the orders documented in this enco unter Plan of Treatment + +------+--------+ + + [...]
--- OUTSIDE RECORDS SUMMARY | ~2020-08-06 | XMS | Encounter Summary ---
Demographics + + + | Address | [address] | | | [place] [address] | + + + | Home Phone [...] Team Providers + +------+ + | Care Detasseler Name | Role | Phone | + +------+ + | Kirk French MD | PCP | | + +------+ + Reason for Visit +--------+--------+ + | Reason | Onset | Comments | | | Date | | +--------+--------+ + | Other | 12/29/ | | | | 2019 | | +--------+--------+ + Encounter Details +--------+ + + + + | Date | Type | Department | Care Team | Description | +--------+ + + + + | 12/29/ | Telephone | [facility] | Emmanuel Daniel MD | Other | | 2019 | | GASTROENTEROLOGY | [address], [place] | | | | | [address] [place] | [address] [place], [place] | | | | | [address] [place], [place] | [address] | | | | | [address] | | | | | | [phone] | | | +--------+ + + + [...] this encounter Miscellaneous Notes Telephone Encounter - Kasie Ashley RN - 12/29/2018 3:36 PM PSTCalled patient and he re stated his symptoms of diarrhea and abdominal pain. Informed him Dr. Daniel is out of the off ice until next week and he should go to the ER. Encouraged him to do this because he said th at he felt better after he went into the ED the last time for the same symptoms. Pt is sched uled for and EGD/colon next and agrees with plan to go to ER in [place].......... ..................................Kasie Ashley RN on 12/29/18 at 15:39 elephone Encounter - Monica Kenny - 12/29/2018 1:14 PM PSTPatient called in complaining of terrible stomac h pains. He said the medication Dr. Daniel gave him is not working at all, he still has horri ble watery stools. He would like to talk to someone to know what to do now. He will be home in about an hour. If you could call him then. Thank you documented in this encounter Plan of Treatment +--------+ + + + + | Date | Type | Specialty | Care Team | Description | +--------+ + + + + | 08/21/ | Implant | Cardiology | Daljit Singletary, | Remote Device | | 2019 | Monitor | | MD [address] | Interrogation | | | | | [place], | (Primary Dx); | | | | | [place] [address] | Pacemaker; | | | | | [phone] | Sinoatrial node | | | | | | dysfunction (HCC) | | | | | | with symptomatic | | | | | | bradycardia | +--------+ + + + + | 08/21/ | Implant | Cardiology | Daljit Singletary, | Remote Device | | 2019 | Monitor | | [address] | Interrogation | | | | | [place], | (Primary Dx); | | | | | [place] [address] | Pacemaker; | | | | | [phone] | Sinoatrial node | | | | | | dysfunction (HCC) | | | | | | with symptomatic | | | | | | bradycardia | +--------+ + + + + | 08/21/ | Implant | Cardiology | Daljit Singletary, | Remote Device | | 2019 | Monitor | | MD [address] | Interrogation | | | | | [place], | (Primary Dx); | | | | | [place] [address] | Pacemaker; | | | | | [phone] | Sinoatrial node | | | | | | dysfunction (HCC) | | | | | | with symptomatic | | | | | | bradycardia | +--------+ + + + + | 08/21/ | Implant | Cardiology | Daljit Singletary, | Remote Device | | 2019 | Monitor | | MD [address] | Interrogation | | | | | [place], | (Primary Dx); | | | | | [place] [address] | Pacemaker; | | | | | [phone] | Sinoatrial node | | | | | | dysfunction (HCC) | | | | | | with symptomatic | | | | | | bradycardia | +--------+ + + + + | 08/21/ | Implant | Cardiology | Daljit Singletary, | Remote Device | | 2019 | Monitor | | [address] | Interrogation | | | | | [place], | (Primary Dx); | | | | | [place] [address] | Pacemaker; | | | | | [phone] | Sinoatrial node | | | | [...] [address] | | | | | | [place], | | | | | | [place] [address] | | | | | | [phone] | | | | | | | | +--------+ + + + + documented as of this encounter Visit Diagnoses Not on filedocumented in this encounter"
--- OUTSIDE RECORDS SUMMARY | ~2020-08-06 | XMS | Encounter Summary ---
Demographics + + + | Address | [address] | | | [place] [address] | + + + | Home Phone [...] + +------+ + | Care Director Of Radiology Name | Role | Phone | + +------+ + PCP | Unavailable | + +------+ + Encounter Details +--------+ + + + + | Date | Type | Department | Care Team | Description | +--------+ + + + + | 12/16/ | [facility] | [facility] | Naresh Mckeon | | | 2010 | Encounter | MED CTR SLEEP | MD Chaya [address] | | | | | CENTER [address] | [address] [place] | | | | | [place] | [place] [address] | | | | | [address] | [phone] | | | | | [phone] | | | +--------+ + + + [...] Interrogation | | | | | [place], | (Primary Dx); | | | | | [place] [address] | Pacemaker; | | | | | [phone] | Sinoatrial node | | | | | | dysfunction (HCC) | | | | | | with symptomatic | | | | | | bradycardia | +--------+ + + + + | 08/21/ | Implant | Cardiology | Daljit Singletary, | Remote Device | | 2019 | Monitor | | MD [address] | Interrogation | | | | | [place], | (Primary Dx); | | | | | [place] [address] | Pacemaker; | | | | | [phone] | Sinoatrial node | | | | | | dysfunction (HCC) | | | | | | with symptomatic | | | | | | bradycardia | +--------+ + + + + | 08/21/ | Implant | Cardiology | Daljit Singletary, | Remote Device | | 2020 | Monitor | | MD [address] | Interrogation | | | | | [place], | (Primary Dx); | | | | | [place] [address] | Pacemaker; | | | | | [phone] | Sinoatrial node | | | | | | dysfunction ([facility]) | | | | | | with symptomatic | | | | | | bradycardia | +--------+ + + + + | 08/21/ | Implant | Cardiology | Daljit Singletary, | Remote Device | | 2019 | Monitor | | MD [address] | Interrogation | | | | | [place], | (Primary Dx); | | | | | [place] [address] | Pacemaker; | | | | | [phone] | Sinoatrial node | | | | | | dysfunction ([facility]) | | | | | | with symptomatic | | | | | | bradycardia | +--------+ + + + + | 08/21/ | Implant | Cardiology | Daljit Singletary, | Remote Device | | 2019 | Monitor | | MD [address] | Interrogation | | | | | [place], | (Primary Dx); | | | | | [place] [address] | Pacemaker; | | | | | [phone] | Sinoatrial node | | | | [...] | | | | | | [place] [address] | | | | | | [phone] | | | | | | | | +--------+ + + + + documented as of this encounter Visit Diagnoses Not on filedocumented in this encounter"
--- OUTSIDE RECORDS SUMMARY | ~2020-08-06 | XMS | Encounter Summary ---
Demographics + + + | Address | [address] | | | [place] [address] | + + + | Home Phone [...] Providers + +------+ + | Care Marketing Sales Consultant Name | Role | Phone | + +------+ + | Kirk French MD | PCP | | + +------+ + Reason for Visit +--------+--------+ + | Reason | Onset | Comments | | | Date | | +--------+--------+ + | Other | 07/10/ | swelling up, not feeling | | | 2019 | | +--------+--------+ + Encounter Details +--------+ + + + + | Date | Type | Department | Care Team | Description | +--------+ + + + + | 07/10/ | Telephone | [facility] | Daljit Singletary, | Other (swelling up, | | 2019 | | CARDIOLOGY [address] | MD [address] | not feeling) | | | | [place], | [facility] | | | [place] [address] | [place] [address] | | | | | [phone] | [phone] | | | | | | | [...] Telephone Encounter - Darlene Tirado RN - 07/10/2020 1:33 PM PDTFred was called today t o move his appointment sooner due to an issue with his device and the device nurse adriana briceño When speaking with Amilcar, the PSR decided to transfer him to RN for triage. Amilcar reports that he is having swelling in his legs, ankles, calves, hands and face. His sh ortness of breath is still present, not really worse but never gone. He has gained weight a nd feels bloated up. He feels like he swells more when he moves around. He is advised that he should come sooner for an appointment so this can be evaluated in person. He was transfe rred to PSR to arrange ...........................................Darlene Tirado RN, on 0 07/10/20 at 1:37 PM PDT documented in this encounter Plan of Treatment +--------+ + + + + | Date | Type | Specialty | Care Team | Description | +--------+ + + + + | 08/21/ | Implant | Cardiology | Daljit Singletary, | Remote Device | 2019 | Monitor | | [place] [address] [facility] | Interrogation | | | | | [place], | (Primary Dx); | | | | | [place] [address] | Pacemaker; | | | | | [phone] | Sinoatrial node | | | | | | dysfunction (HCC) | | | | | | with symptomatic | | | | | | bradycardia | +--------+ + + + + | 08/21/ | Implant | Cardiology | Daljit Singletary, | Remote Device | | 2020 | Monitor | | MD [address] | Interrogation | | | | | [place], | (Primary Dx); | | | | | [place] [address] | Pacemaker; | | | | | [phone] | Sinoatrial node | | | | | | dysfunction (HCC) | | | | | | with symptomatic | | | | | | bradycardia | +--------+ + + + + | 08/21/ | Implant | Cardiology | Daljit Singletary, | Remote Device | | 2019 | Monitor | | MD [address] | Interrogation | | | | | [place], | (Primary Dx); | | | | | [place] [address] | Pacemaker; | | | | | [phone] | Sinoatrial node | | | | | | dysfunction (HCC) | | | | | | with symptomatic | | | | | | bradycardia | +--------+ + + + + | 08/21/ | Implant | Cardiology | Daljit Singletary, | Remote Device | | 2020 | Monitor | | MD [address] | Interrogation | | | | | [place], | (Primary Dx); | | | | | [place] [address] | Pacemaker; | | | | | [phone] | Sinoatrial node | | | | | | dysfunction (HCC) | | | | | | with symptomatic | | | | | | bradycardia | +--------+ + + + + | 08/21/ | Implant | Cardiology | Daljit Singletary, | Remote Device | 2019 | Monitor | | MD [address] [place] | Interrogation | | | | | [place], | (Primary Dx); | | | | | [place] [address] | Pacemaker; | | | | | [phone] | Sinoatrial node | | | | [...] W | | | | | | [place], | | | | | | [place] [address] | | | | | | [phone] | | | | | | | | +--------+ + + + + documented as of this encounter Visit Diagnoses Not on filedocumented in this encounter"
--- OUTSIDE RECORDS SUMMARY | ~2020-08-06 | XMS | Encounter Summary ---
Demographics + + + | Address | [address] | | | [place] [address] | + + + | Home Phone [...] Team Providers + +------+ + | Care Limnology Teacher Name | Role | Phone | [...] loss | [address] | [address], | | | | | Anxiety | [address] | [address] | | | | | disorder, | [address] | [place], | | | | | unspecified | [place], [place] | [place] [address] | | | | | Chronic | [address] | Phone: | | | | | pain | Phone: | [phone] | | | | | syndrome | [phone] | Fax: | | | | | Procedures | Fax: | [phone] | | | | | office visit | [phone] | | +--------+--------+ + + + + Encounter Details +--------+---------+ + + + | Date | Type | Department | Care Team | Description | +--------+---------+ + + + | 12/26/ | Office | [facility] | Emmanuel Daniel MD | Functional diarrhea | | 2019 | Visit | GASTROENTEROLOGY | [address], [place] | (Primary Dx); | | | | [address] [place] | [address] [place], [place] | Gastrointestinal | | | | [address] [place], [place] | [address] | hemorrhage | | | | [address] | | associated with | | | | [phone] | | anorectal source; | | | [...] of diarrhea since serving in the in [facility]. His last episodes of diarrhea started [...] inflammatory bowel disease. CT scan done through [facility] November s howed mild diverticulosis without [...] | | | | | [address] [place], | (Primary Dx); | | | | | [place] [address] | Pacemaker; | | | | | [phone] | Sinoatrial node | | | | | | dysfunction (HCC) | | | | | | with symptomatic | | | | | | bradycardia | +--------+ + + + + | 08/21/ | Implant | Cardiology | Daljit Singletary, | Remote Device | | 2019 | Monitor | | MD [address] | Interrogation | | | | | [place], | (Primary Dx); | | | | | [place] [address] | Pacemaker; | | | | | [phone] | Sinoatrial node | | | | | | dysfunction (HCC) | | | | | | with symptomatic | | | | | | bradycardia | +--------+ + + + + | 08/21/ | Implant | Cardiology | Daljit Singletary, | Remote Device | | 2019 | Monitor | | MD [address] | Interrogation | | | | | [place], | (Primary Dx); | | | | | [place] [address] | Pacemaker; | | | | | [phone] | Sinoatrial node | | | | | | dysfunction (HCC) | | | | | | with symptomatic | | | | | | bradycardia | +--------+ + + + + | 08/21/ | Implant | Cardiology | Daljit Singletary, | Remote Device | | 2020 | Monitor | | MD [address] | Interrogation | | | | | [place], | (Primary Dx); | | | | | [place] [address] | Pacemaker; | | | | | [phone] | Sinoatrial node | | | | | | dysfunction (HCC) | | | | | | with symptomatic | | | | | | bradycardia | +--------+ + + + + | 08/21/ | Implant | Cardiology | Daljit Singletary, | Remote Device | | 2020 | Monitor | | MD [address] | Interrogation | | | | | [place], | (Primary Dx); | | | | | [place] [address] | Pacemaker; | | | | | [phone] | Sinoatrial node | | | | [...] | | | | | | [place] [address] | | | | | | [phone] | | | | | | | [...] pacemaker in situ | + + | Remote Device Interrogation [...]
--- OUTSIDE RECORDS SUMMARY | ~2020-08-06 | XMS | Encounter Summary ---
Demographics + + + | Address | [address] | | | [place] [address] | + + + | Home Phone [...] Team Providers + +------+ + | Care Cane Flume Feeding Machine Operator Name | Role | Phone | + +------+ + PCP | Unavailable | + +------+ + Encounter Details +--------+ + + + + | Date | Type | Department | Care Team | Description | +--------+ + + + + | 08/02/ | Hospital | [facility] | | | | 2001 | Encounter | [facility] | | | | | | CENTER [address] | | | | | | [place] | | | | | | [address] | | | | | | [phone] | | | +--------+ + + + [...] | Monitor | | MD [address] | Interrogation | | | | | [place], | (Primary Dx); | | | | | [place] [address] | Pacemaker; | | | | | [phone] | Sinoatrial node | | | | | | dysfunction (HCC) | | | | | | with symptomatic | | | | | | bradycardia | +--------+ + + + + | 08/21/ | Implant | Cardiology | Daljit Singletary, | Remote Device | | 2019 | Monitor | | MD [address] | Interrogation | | | | | [place], | (Primary Dx); | | | | | [place] [address] | Pacemaker; | | | | | [phone] | Sinoatrial node | | | | | | dysfunction (HCC) | | | | | | with symptomatic | | | | | | bradycardia | +--------+ + + + + | 08/21/ | Implant | Cardiology | Daljit Singletary, | Remote Device | | 2019 | Monitor | | MD [address] | Interrogation | | | | | [place], | (Primary Dx); | | | | | [place] [address] | Pacemaker; | | | | | [phone] | Sinoatrial node | | | | | | dysfunction (HCC) | | | | | | with symptomatic | | | | | | bradycardia | +--------+ + + + + | 08/21/ | Implant | Cardiology | Daljit Singletary, | Remote Device | | 2019 | Monitor | | MD [address] | Interrogation | | | | | [place], | (Primary Dx); | | | | | [place] [address] | Pacemaker; | | | | | [phone] | Sinoatrial node | | | | | | dysfunction (HCC) | | | | | | with symptomatic | | | | | | bradycardia | +--------+ + + + + | 08/21/ | Implant | Cardiology | Daljit Singletary, | Remote Device | | 2019 | Monitor | | MD [address] | Interrogation | | | | | [place], | (Primary Dx); | | | | | [place] [address] | Pacemaker; | | | | | [phone] | Sinoatrial node | | | | [...] | | | | | | [place] [address] | | | | | | [phone] | | | | | | | | +--------+ + + + + documented as of this encounter Visit Diagnoses Not on filedocumented in this encounter"
--- OUTSIDE RECORDS SUMMARY | ~2020-08-06 | XMS | Encounter Summary ---
Demographics + + + | Address | [address] [place] [address] [address] | | | [place] [address] | + + + | Home Phone | | + + + | Preferred Language | Unknown | + + + | Marital Status | | + + + | Mormonism Affiliation | Unknown | + + + | Race | White | + + + | Ethnic Group | Not or | + + + Author + + + | Author | [facility] | + + + | Organization | [facility] | + + + | Address | Unknown | + + + | Phone | Unavailable | + + + Support + + + + + | Name | Relationship | Address | Phone | + + + + + | Rachel Valencia | [address] | [place] | | | | | [address] | | + + + + + Care Team Providers + +------+ + | Care Art Gallery Director Name | Role | Phone | + +------+ + | Darion Holden DO | PCP | | + +------+ + Reason for Visit + +--------+ + | Reason | Onset | Comments | | | Date | | + +--------+ + | Refill Request | 10/26/ | | | | 2018 | | + +--------+ + Encounter Details +--------+ + + + + | Date | Type | Department | Care Team | Description | +--------+ + + + + | 10/26/ | Telephone | Digestive Health | Blanca Bridgette Shawn, | Refill Request | | 2019 | | Center at [facility] [address] | MD [address] | | | | | [address] [place] | [place], [place] | | | | | for Health and | [address] | | | | | [facility] | [phone] | | | | | [place], [place] | | | | | | [address] | | | | | | [phone] | | | +--------+ + + + [...] this encounter Miscellaneous Notes Telephone Encounter - Brittany Sow MA - 10/26/2019 4:40 PM PSTPlaced call to patient a nd let him know that prescriptions have been sent to the pharmacy. elephone Encounter - Brittany Sow MA - 03/2019 4:09 PM PSTPres[facility] [place] elephone Encounter - Allyson Diehl RN - 3:[address] Rios, cecilia to fill. Only 30 day supply at a time for lomotil per clinic policy of controlled substance. ANUSHKA to call in lomotil and notify Amilcar.Electronically signed by Allyson Diehl RN at 03/2019 3:21 PM PSTTelephone Encounter - Mel Kennedy - 10/26/2019 2:33 PM PSTPerson calling? (Patient, spouse, caregiver, medical office, etc): pt Reason for call: pt called in and wants to refill his rx dicyclomine 20 mg oral tablet (BENTYL) diphenoxylate-atropine 2.5-0.025 mg oral tablet (LOMOTIL) and Ledsin/sl For 90 days supply and pls send at [id number] - [place], [place] - [address] [phone] Provider / Specialty: Dr. Rios Call back number confirmed?:yes Best call back number / ext: noted under contact or phone tab. Caller would like a call back to discuss. Ok to leave a detailed message?: yes documented in this enc ounter Plan of Treatment Not on filedocumented as of this encounter Visit Diagnoses + + | Diagnosis | + + | Diarrhea, unspecified type | + + | Abdominal cramping Abdominal pain, unspecified site | + + documented in this encounter"
--- OUTSIDE RECORDS SUMMARY | ~2020-08-06 | XMS | Encounter Summary ---
Demographics + + + | Address | [address] | | | [place] [address] | + + + | Home Phone [...] Providers + +------+ + | Care Director Life Sales Name | Role | Phone | + +------+ + PCP | Unavailable | + +------+ + Encounter Details +--------+ + + + + | Date | Type | Department | Care Team | Description | +--------+ + + + + | 05/13/ | Hospital | [facility] | | | | 2007 | Encounter | MED CTR EMERGENCY | | | | | | CENTER [address] | | | | | | [place] | | | | | | [address] | | | | | | [phone] | | | +--------+ + + + [...] | Monitor | | MD [address] | Interrogation | | | | | [place], | (Primary Dx); | | | | | [place] [address] | Pacemaker; | | | | | [phone] | Sinoatrial node | | | | | | dysfunction (HCC) | | | | | | with symptomatic | | | | | | bradycardia | +--------+ + + + + | 08/21/ | Implant | Cardiology | Daljit Singletary, | Remote Device | | 2019 | Monitor | | MD [address] | Interrogation | | | | | [place], | (Primary Dx); | | | | | [place] [address] | Pacemaker; | | | | | [phone] | Sinoatrial node | | | | | | dysfunction (HCC) | | | | | | with symptomatic | | | | | | bradycardia | +--------+ + + + + | 08/21/ | Implant | Cardiology | Daljit Singletary, | Remote Device | | 2019 | Monitor | | MD [address] | Interrogation | | | | | [place], | (Primary Dx); | | | | | [place] [address] | Pacemaker; | | | | | [phone] | Sinoatrial node | | | | | | dysfunction (HCC) | | | | | | with symptomatic | | | | | | bradycardia | +--------+ + + + + | 08/21/ | Implant | Cardiology | Daljit Singletary, | Remote Device | | 2019 | Monitor | | MD [address] | Interrogation | | | | | [place], | (Primary Dx); | | | | | [place] [address] | Pacemaker; | | | | | [phone] | Sinoatrial node | | | | | | dysfunction (HCC) | | | | | | with symptomatic | | | | | | bradycardia | +--------+ + + + + | 08/21/ | Implant | Cardiology | Daljit Singletary, | Remote Device | | 2019 | Monitor | | MD [address] | Interrogation | | | | | [place], | (Primary Dx); | | | | | [place] [address] | Pacemaker; | | | | | [phone] | Sinoatrial node | | | | [...] | | | | | | [place] [address] | | | | | | [phone] | | | | | | | | +--------+ + + + + documented as of this encounter Visit Diagnoses Not on filedocumented in this encounter"
--- OUTSIDE RECORDS SUMMARY | ~2020-08-06 | XMS | Encounter Summary ---
Demographics + + + | Address | [address] | | | [place] [address] | + + + | Home Phone [...] Team Providers + +------+ + | Care Formstone Fitter Name | Role | Phone | + +------+ + | Kirk French MD | PCP | | + +------+ + Reason for Visit +--------+--------+ + | Reason | Onset | Comments | | | Date | | +--------+--------+ + | Other | 10/04/ | Triage | | | 2019 | | +--------+--------+ + Encounter Details +--------+ + + + + | Date | Type | Department | Care Team | Description | +--------+ + + + + | 10/04/ | Telephone | [facility] [place] | Emmanuel Daniel MD | Other (Triage) | | 2019 | | GASTROENTEROLOGY | [address], [place] | | | | | [address] [place] | [address] [place], [place] | | | | | [address] [place], [place] | [address] | | | | | [address] | | | | | | [phone] | | | +--------+ + + + [...] Telephone Encounter - Kailyn Gutierrez CMA - 10/06/2019 8:20 AM PSTLeft voicemail, that Dr Juan Diego Daniel is deferring this phone call to Dr. Rios at [facility], as Dr. Daniel is not seeing arian ents anymore, and for him to wait for Dr. Bowen office to call him back.Electronically si gned by Kailyn Gutierrez CMA at 10/06/2019 8:22 AM PSTTelephone Encounter - Kailyn Gutierrez CMA - 10/04/2019 4:35 PM PSTPatient has seen Bridgette Rios MD at [facility] on 09/28/2019, and h as a phone call into her office as well.Electronically signed by Kailyn Gutierrez CMA at 09/22 4:36 PM PSTTelephone Encounter - Amada Starr - 10/04/2019 9:03 AM Amilcar Krishnamurthy, would like a return call from clinical staff for triage. Patient states that he is doing worse than ever. Will route to clinical staff, please advise. Phone number: [phone] signed by Amada Starr at 10/04/2019 9:17 AM PSTdocument ed in this encounter Plan of Treatment +--------+ + + + + | Date | Type | Specialty | Care Team | Description | +--------+ + + + + | 08/21/ | Implant | Cardiology | Daljit Singletary, | Remote Device | | 2019 | Monitor | | MD [address] | Interrogation | | | | | [place], | (Primary Dx); | | | | | [place] [address] | Pacemaker; | | | | | [phone] | Sinoatrial node | | | | | | dysfunction (HCC) | | | | | | with symptomatic | | | | | | bradycardia | +--------+ + + + + | 08/21/ | Implant | Cardiology | Daljit Singletary, | Remote Device | | 2020 | Monitor | | MD [address] | Interrogation | | | | | [place], | (Primary Dx); | | | | | [place] [address] | Pacemaker; | | | | | [phone] | Sinoatrial node | | | | | | dysfunction (HCC) | | | | | | with symptomatic | | | | | | bradycardia | +--------+ + + + + | 08/21/ | Implant | Cardiology | Daljit Singletary, | Remote Device | | 2019 | Monitor | | MD [address] | Interrogation | | | | | [place], | (Primary Dx); | | | | | [place] [address] | Pacemaker; | | | | | [phone] | Sinoatrial node | | | | | | dysfunction (HCC) | | | | | | with symptomatic | | | | | | bradycardia | +--------+ + + + + | 08/21/ | Implant | Cardiology | Daljit Singletary, | Remote Device | | 2019 | Monitor | | MD [address] | Interrogation | | | | | [place], | (Primary Dx); | | | | | [place] [address] | Pacemaker; | | | | | [phone] | Sinoatrial node | | | | | | dysfunction (HCC) | | | | | | with symptomatic | | | | | | bradycardia | +--------+ + + + + | 08/21/ | Implant | Cardiology | Daljit Singletary, | Remote Device | | 2019 | Monitor | | MD [address] | Interrogation | | | | | [place], | (Primary Dx); | | | | | [place] [address] | Pacemaker; | | | | | [phone] | Sinoatrial node | | | | [...] [address] | | | | | | [place], | | | | | | [place] [address] | | | | | | [phone] | | | | | | | | +--------+ + + + + documented as of this encounter Visit Diagnoses Not on filedocumented in this encounter"
--- OUTSIDE RECORDS SUMMARY | ~2020-08-06 | XMS | Encounter Summary ---
Demographics + + + | Address | [address] | | | [place] [address] | + + + | Home Phone [...] Team Providers + +------+ + | Care Brace End Mainspring Former Name | Role | Phone | [...] [address] [place] | | | | | [place], [place] | [address] | | | | | [address] | [place] [address] | | | | | [phone] | [phone] | | | | | | | [...] | Monitor | | MD [address] | Interrogation | | | | | [place], | (Primary Dx); | | | | | [place] [address] | Pacemaker; | | | | | [phone] | Sinoatrial node | | | | | | dysfunction (HCC) | | | | | | with symptomatic | | | | | | bradycardia | +--------+ + + + + | 08/21/ | Implant | Cardiology | Daljit Singletary, | Remote Device | | 2020 | Monitor | | MD [address] | Interrogation | | | | | [place], | (Primary Dx); | | | | | [place] [address] | Pacemaker; | | | | | [phone] | Sinoatrial node | | | | | | dysfunction (HCC) | | | | | | with symptomatic | | | | | | bradycardia | +--------+ + + + + | 08/21/ | Implant | Cardiology | Daljit Singletary, | Remote Device | | 2019 | Monitor | | MD [address] | Interrogation | | | | | [place], | (Primary Dx); | | | | | [place] [address] | Pacemaker; | | | | | [phone] | Sinoatrial node | | | | | | dysfunction (HCC) | | | | | | with symptomatic | | | | | | bradycardia | +--------+ + + + + | 08/21/ | Implant | Cardiology | Daljit Singletary, | Remote Device | | 2019 | Monitor | | MD [address] | Interrogation | | | | | [place], | (Primary Dx); | | | | | [place] [address] | Pacemaker; | | | | | [phone] | Sinoatrial node | | | | | | dysfunction (HCC) | | | | | | with symptomatic | | | | | | bradycardia | +--------+ + + + + | 08/21/ | Implant | Cardiology | Daljit Singletary, | Remote Device | | 2019 | Monitor | | MD [address] | Interrogation | | | | | [place], | (Primary Dx); | | | | | [place] [address] | Pacemaker; | | | | | [phone] | Sinoatrial node | | | | [...] [address] | | | | | | [address] [place], | | | | | | [place] [address] | | | | | | [phone] | | | | | | | [...] + + + + | Non- | 4.90 | 4.20 - 5.70 | EXTERNAL | | | Red Blood | | 10*6/uL | LAB | | | Cells | | | | | | Counted | | | | | + + + + + + | Hemoglobin | 16.7 | 13.2 - 17.0 | [...] +-------+ + + + | LDL, | 76 | mg/dL | EXTERNAL | [...]
--- OUTSIDE RECORDS SUMMARY | ~2020-08-06 | XMS | Encounter Summary ---
Demographics + + + | Address | [address] | | | [place] [address] | + + + | Home Phone [...] Team Providers + +------+ + | Care Blueprint Maker Name | Role | Phone | + +------+ + | Kirk French MD | PCP | | + +------+ + Encounter Details +--------+ + + + + | Date | Type | Department | Care Team | Description | +--------+ + + + + | 12/23/ | Emergency | [facility] | Cristal Alexander, | Chronic neck pain; | | 2015 | | [facility] | DO [address] | Headache(784.0) | | | | EMERGENCY CENTER | [place] [address] | | | | | [address] | [phone] | | | | | [place], [place] | | | | | | [address] | | | | | | [phone] | | | +--------+ + + + [...] + + + +---------+ + + | Bergen-3 Fatty | CAPS, one capsule by | [...] | | | | | | | #[id number], exp 07/2016 | | | | | [...] documented as of this encounter ED Notes Cristal Alexander DO - 12/23/2014 5:28 PM PSTFormatting of this note might be different fro m the original. ED Provider Notes by Cristal Alexander DO at 12/23/14 8880 Author: Cristal Alexander DO Service: Emergency Department Author Type: Physician Filed: 12/27/14 1135 Date of Service: 12/23/141727 Status: Signed Store Hand: Cristal Alexander DO (Physician) Procedures Additional Documentation Procedures [facility] Department of Emergency Medicine HPI History of Present Illness Patient Identification Pina Gay is a 54 y.o. male. Patient information was obtained from patient. History/Exam limitations: none. Patient presented to the Emergency Department by: Car Chief Complaint Chief Complaint Patient presents with Neck Pain has plates in his neck, numbness in phoebe arms Headache The patient presents with a complaint of headache and neck pain. The onset of the patient s symptoms was noted 6 weeks ago. The rapidity of onset is described as gradual. The se verity of the patient s symptoms is described as 05/31. The patient reports the following e xacerbating factors: worse on movement of neck. The patient states that the symptoms are re lieved by heat. Describes the pain as sharp, the symptoms radiates over the top of the head from the neck. The patient also has the following associated symptoms: nausea, denies vomiti ng, fever, photophobia, weakness in arms/ leg. Numbness in the tips of the right fingers. L ast surgery on the 2-3 years ago. The patient has had similar symptoms before. The patient has had neuroimaging in the past. [facility] is doing pain management. Past Medical History Diagnosis Date Hyperlipidemia Hypertension Back pain Other chronic pain PVC (premature ventricular contraction) Sleep apnea Past Surgical History Procedure Laterality Date Spine surgery Abdominal surgery adhesions removed Appendectomy Pacemaker insertion Laser ablation x3 Cardiac catheterization Hardware removal Prior to Admission medications Medication Sig Start Date End Date Taking? Authorizing Provider 5-Hydroxytryptophan (5-HTP) 100 MG CAPS Take by mouth 2 (two) times daily. Historical P rovider amLODIPine (NORVASC) 5 MG tablet Take 10 [...] Heart attack Father Cancer Father prostate, colon ROS Review of Systems Constitutional: Negative for: fever, chills, fatigue, sweats or weight loss Eyes: Negative for: decreased vision or irritated eyes Nose: Negative for: nosebleed Throat: Negative for: mouth sores Cardiovascular/Respiratory: Negative for: chest pain, shortness of breath, cough Gastrointestinal: Negative for: abdominal pain, vomiting, diarrhea, black or bloody stools Genitourinary: Negative for: dysuria, hematuria, urinary problems Musculoskeletal: See cc Skin: Negative for: laceration or lesion Neuro and psych: See cc Endocrine/Heme/Lymph: Negative for: swollen lymph nodes, easy bruising Physical Exam Physical Exam BP 114/70 | Pulse 72 | Temp(Src) 97.8 F (36.6 C) (Oral) | Resp 16 | Wt 114.2 kg (25 1 lb 12.3 oz) | SpO2 96% Vital signs normal Pulse Oximetry interpretation: Normal GEN: Alert, in moderate distress secondary to pain ENT: The TMS are neg. Bilaterally. There is no pharygeal injection, the mucous membranes are pink and moist. There is no conjunctival injection. There is no scleral icterus. There i s no nasal discharge or epistaxis. NECK: Supple, tenderness in the paravertebral muscles, no cervical lymphadenopathy. No JVD CHEST: Breath sounds are equal bilaterally. There are no adventitious sounds. HRRR. No murm urs. No tenderness to palpation over the chest wall. ABD: Soft, BS present and normal. There is no tenderness to palpation. There is no reboun d, guarding, or rigidity. No bruits. No palpable masses. EXTREM: No c/c/e. No joint swelling BACK: No tenderness to palpation. NEURO: Alert, oriented. CN 2-12 intact. No motor or sensory deficits. No drift, no cerebell ar signs present. SKIN: Warm and dry, no rashes ED Course Medical Decision Making and Emergency Department Course ED Department Course Patient does not wish pain medication. Will administer valium as muscle relaxant, get CT of neck. CT was negative for acute pathology. There is no evidence of SAH, ICH, meningitis, sinusitis, cervical cord injury or cervical s pine fx. Patient will need to followup with [facility]ine clinic - which is doing his pain management. I have discussed my clinical impression and treatment plan with the pt. I have reviewed th e results of the diagnostic studies with the patient. We have specifically discussed the sig ns and symptoms that would constitute the need for an immediate return to the ED, the import ance of continued outpatient f/u and the importance of compliance with the d/c instructions. I have answered any questions that the pt has to the best of my ability. Based upon the pt s history, physical exam, ED course, and diagnostic studies, I feel that there is no curre nt emergent medical condition that warrants admission, transfer, or further ED treatment at this time. Records Reviewed Old medical records. Nursing notes. Seen by PCP to establish care 11/26, noted at that time he was off all pain meds except Alvarez ol Labs & Radiology Results Laboratory Evaluation Results None Radiology and EKG Evaluation Imaging Results CT C-Spine Non-Con (Final result) Result time: 12/23/14 18:27:04 Final result by Fabrizio Eric (12/23/14 18:27:04) Impression: 1. Noncontrast CT cervical spine exam shows no evidence of fracture or subluxation. 2. Intact postoperative changes with cervical fusion extending from C5-T1. Narrative: PINA PEACEZENAIDA [address] CERVICAL SPINE WO CONTRAST 12/23/2014 6:04 PM HISTORY: Neck pain TECHNIQUE: Axial 1.25-mm images of the cervical spine were acquired from the lower posterio r fossa through the upper thoracic spine and reconstructed in coronal and sagittal planes. COMPARISON: CT, 05/11/14 FINDINGS: Minimal motion artifact is noted on this scan. Postsurgical changes are demonstra kevin from articular mass fixation of the cervical spine from C6-T1. No abnormal lucency surro unds the fixation hardware. The metallic vertical struts are intact. The patient is status p ost a anterior cervical disc fusion. A slight bend within the plate is again noted. The fusi on is mature anteriorly from C5-C7. The craniocervical junction is maintained. There is no e pidural or prevertebral fluid. There is a subtle reversal of the normal cervical spine lordosis which may be positional in nature. Vertebral body heights are maintained. The base of the odontoid is intact. The lung apices are normal in appearance. There is no adenopathy along the neck base. Diagnosis & Disposition ED Diagnoses Final diagnoses Chronic neck pain Headache Disposition: ED Disposition Discharge Condition at discharge: Stable Follow-up Information Follow up With Details Comments Contact Info [facility] this week [address] [facility] [address] [facility] [address] Kirk French MD Discharge Medications: Discharge Medication List as of 12/23/2014 7:31 PM START taking these medications Details methocarbamol (ROBAXIN) 750 MG tablet Take 2 tablets by mouth every 6 (six) hours as needed (pain)., Starting 12/23/2014, Until Wed01/02/15, Print Cristal Alexander DO 12/27/14 113 onversion Transacti on, Provider Unknown - 12/23/2014 5:22 PM PSTFormatting of this note might be different fro m the original. ED Notes by Bandar Stephenson RN at 12/23/141721 Author: Bandar Stephenson RN Service: (none) Author Type: Registered Nurse Filed: 12/23/141724 Date of Service: 12/23/141721 Status: Signed Store Hand: Bandar Stephenson RN (Registered Nurse) Pt states has been having numbness in bilateral arms/hands that has progressively gotten wo rse. States worse in am and takes "awhile to wake them up". Also c/o of burning sensation in feet that is intermittent. Pt states has had similar event which required repeating spin al surgery. Bandar Stephenson RN 12/23/141724 docume nted in this encounter Plan of Treatment +--------+ + + + + | Date | Type | Specialty | Care Team | Description | +--------+ + + + + | 08/21/ | Implant | Cardiology | Daljit Singletary, | Remote Device | | 2019 | Monitor | | [address] | Interrogation | | | | | [place], | (Primary Dx); | | | | | [place] [address] | Pacemaker; | | | | | [phone] | Sinoatrial node | | | | | | dysfunction (HCC) | | | | | | with symptomatic | | | | | | bradycardia | +--------+ + + + + | 08/21/ | Implant | Cardiology | Daljit Singletary, | Remote Device | | 2020 | Monitor | | MD [address] | Interrogation | | | | | [place], | (Primary Dx); | | | | | [place] [address] | Pacemaker; | | | | | [phone] | Sinoatrial node | | | | | | dysfunction (HCC) | | | | | | with symptomatic | | | | | | bradycardia | +--------+ + + + + | 08/21/ | Implant | Cardiology | Daljit Singletary, | Remote Device | | 2019 | Monitor | | MD [address] | Interrogation | | | | | [place], | (Primary Dx); | | | | | [place] [address] | Pacemaker; | | | | | [phone] | Sinoatrial node | | | | | | dysfunction (HCC) | | | | | | with symptomatic | | | | | | bradycardia | +--------+ + + + + | 08/21/ | Implant | Cardiology | Daljit Singletary, | Remote Device | | 2019 | Monitor | | MD [address] | Interrogation | | | | | [place], | (Primary Dx); | | | | | [place] [address] | Pacemaker; | | | | | [phone] | Sinoatrial node | | | | | | dysfunction (HCC) | | | | | | with symptomatic | | | | | | bradycardia | +--------+ + + + + | 08/21/ | Implant | Cardiology | Daljit Singletary, | Remote Device | | 2020 | Monitor | | [place] [address] | Interrogation | | | | | [place], | (Primary Dx); | | | | | [place] [address] | Pacemaker; | | | | | [phone] | Sinoatrial node | | | | [...] [address] | | | | | | [place], | | | | | | [place] [address] | | | | | | [phone] | | | | | | | [...] 07/07/2019 5:05 AM PDT PINA Hermosillo VICTOR [id number] years MaleCT | | CERVICAL SPINE WO [...] + | Headache(784.0) Headache | + + | Remote Device Interrogation [...]
--- OUTSIDE RECORDS SUMMARY | ~2020-08-06 | XMS | Encounter Summary ---
Demographics + + + | Address | [address] | | | [place] [address] | + + + | Home Phone [...] Team Providers + +------+ + | Care Tanker Service Attendant Name | Role | Phone | [...] | | | | | region | [address] | | | | | | Procedures | [address] | | | | | | CT | [place], [place] | | | | | | Myelography | [address] | | | | | | Lumbar Spine | Phone: | | | | | | | [phone] | | | | | | | Fax: | | | | | | | [phone] | | +--------+--------+ + + + + [...] | | | | | region | [address] | | | | | | Procedures | [address] | | | | | | CT | [place], [place] | | | | | | Myelography | [address] | | | | | | Lumbar Spine | Phone: | | | | | | | [phone] | | | | | | | Fax: | | | | | | | [phone] | | +--------+--------+ + + + + Encounter Details +--------+ + + + + | Date | Type | Department | Care Team | Description | +--------+ + + + + | 04/07/ | Hospital | [facility] | Pia Akhtar | Spinal stenosis, | | 2016 | Encounter | [facility] [address] | MD [address] | lumbar region | | | | [place], | [address] | | | | | [place] [address] | [place] [address] | | | | | [phone] | [phone] | | | | | | | [...] + + + +---------+ + + | Pickford-3 Fatty | CAPS, one capsule by | [...] | Monitor | | MD [address] | Interrogation | | | | | [place], | (Primary Dx); | | | | | [place] [address] | Pacemaker; | | | | | [phone] | Sinoatrial node | | | | | | dysfunction (HCC) | | | | | | with symptomatic | | | | | | bradycardia | +--------+ + + + + | 08/21/ | Implant | Cardiology | Daljit Singletary, | Remote Device | | 2020 | Monitor | | MD [address] | Interrogation | | | | | [place], | (Primary Dx); | | | | | [place] [address] | Pacemaker; | | | | | [phone] | Sinoatrial node | | | | | | dysfunction (HCC) | | | | | | with symptomatic | | | | | | bradycardia | +--------+ + + + + | 08/21/ | Implant | Cardiology | Daljit Singletary, | Remote Device | | 2019 | Monitor | | MD [address] | Interrogation | | | | | [place], | (Primary Dx); | | | | | [place] [address] | Pacemaker; | | | | | [phone] | Sinoatrial node | | | | | | dysfunction (HCC) | | | | | | with symptomatic | | | | | | bradycardia | +--------+ + + + + | 08/21/ | Implant | Cardiology | Daljit Singletary, | Remote Device | | 2019 | Monitor | | MD [address] | Interrogation | | | | | [place], | (Primary Dx); | | | | | [place] [address] | Pacemaker; | | | | | [phone] | Sinoatrial node | | | | | | dysfunction (HCC) | | | | | | with symptomatic | | | | | | bradycardia | +--------+ + + + + | 08/21/ | Implant | Cardiology | Daljit Singletary, | Remote Device | | 2019 | Monitor | | [place] [address] [place] | Interrogation | | | | | [place], | (Primary Dx); | | | | | [place] [address] | Pacemaker; | | | | | [phone] | Sinoatrial node | | | | [...] W | | | | | | [place], | | | | | | [place] [address] | | | | | | [phone] | | | | | | | [...] Spinal stenosis, lumbar region | + + | Remote Device Interrogation [...]
--- OUTSIDE RECORDS SUMMARY | ~2020-08-06 | XMS | Encounter Summary ---
Demographics + + + | Address | [address] | | | [place] [address] | + + + | Home Phone [...] Team Providers + +------+ + | Care Budget Report Clerk Name | Role | Phone | + +------+ + | Kirk French MD | PCP | | + +------+ + Encounter Details +--------+ + + + + | Date | Type | Department | Care Team | Description | +--------+ + + + + | 12/24/ | Orders Only | [facility] | Conversion | | | 2018 | | [facility] | Transaction, | | | | | [facility] [address] | Provider Unknown | | | | | [address] | [phone] | | | | | [place], [place] | | | | | | [address] | | | | | | [phone] | | | +--------+ + + + [...] | Monitor | | MD [address] | Interrogation | | | | | [place], | (Primary Dx); | | | | | [place] [address] | Pacemaker; | | | | | [phone] | Sinoatrial node | | | | | | dysfunction ([facility]) | | | | | | with symptomatic | | | | | | bradycardia | +--------+ + + + + | 08/21/ | Implant | Cardiology | Daljit Singletary, | Remote Device | | 2019 | Monitor | | MD [address] [place] | Interrogation | | | | | [place], | (Primary Dx); | | | | | [place] [address] | Pacemaker; | | | | | [phone] | Sinoatrial node | | | | | | dysfunction (HCC) | | | | | | with symptomatic | | | | | | bradycardia | +--------+ + + + + | 08/21/ | Implant | Cardiology | Daljit Singletary, | Remote Device | | 2019 | Monitor | | MD [address] [place] | Interrogation | | | | | [place], | (Primary Dx); | | | | | [place] [address] | Pacemaker; | | | | | [phone] | Sinoatrial node | | | | | | dysfunction (HCC) | | | | | | with symptomatic | | | | | | bradycardia | +--------+ + + + + | 08/21/ | Implant | Cardiology | Daljit Singletary, | Remote Device | | 2019 | Monitor | | MD [address] [place] | Interrogation | | | | | [place], | (Primary Dx); | | | | | [place] [address] | Pacemaker; | | | | | [phone] | Sinoatrial node | | | | | | dysfunction (HCC) | | | | | | with symptomatic | | | | | | bradycardia | +--------+ + + + + | 08/21/ | Implant | Cardiology | Daljit Singletary, | Remote Device | | 2019 | Monitor | | MD [place] | Interrogation | | | | | [place], | (Primary Dx); | | | | | [place] [address] | Pacemaker; | | | | | [phone] | Sinoatrial node | | | | | | dysfunction ([facility]) | | | | | [...] W | | | | | | [place], | | | | | | [place] [address] | | | | | | [phone] | | | | | | | [...] LAB | | Historically converted procedure from [employer] Epic environment | | + + + [...]
--- OUTSIDE RECORDS SUMMARY | ~2020-08-06 | XMS | Encounter Summary ---
Demographics + + + | Address | [address] | | | [place] [address] | + + + | Home Phone [...] Providers + +------+ + | Care Box Chipper Name | Role | Phone | + [...] [address] | | | | [place], | [place], | | | | | [place] [address] | [place] [address] | | | | | [phone] | [phone] | | | | | | | [...] Interrogation | | | | | [place], | (Primary Dx); | | | | | [place] [address] | Pacemaker; | | | | | [phone] | Sinoatrial node | | | | | | dysfunction (HCC) | | | | | | with symptomatic | | | | | | bradycardia | +--------+ + + + + | 08/21/ | Implant | Cardiology | Daljit Singletary, | Remote Device | | 2019 | Monitor | | [address] [place] | Interrogation | | | | | [place], | (Primary Dx); | | | | | [place] [address] | Pacemaker; | | | | | [phone] | Sinoatrial node | | | | | | dysfunction (HCC) | | | | | | with symptomatic | | | | | | bradycardia | +--------+ + + + + | 08/21/ | Implant | Cardiology | Daljit Singletary, | Remote Device | | 2019 | Monitor | | MD [address] [place] | Interrogation | | | | | [place], | (Primary Dx); | | | | | [place] [address] | Pacemaker; | | | | | [phone] | Sinoatrial node | | | | | | dysfunction (HCC) | | | | | | with symptomatic | | | | | | bradycardia | +--------+ + + + + | 08/21/ | Implant | Cardiology | Daljit Singletary, | Remote Device | | 2019 | Monitor | | MD [address] [place] | Interrogation | | | | | [place], | (Primary Dx); | | | | | [place] [address] | Pacemaker; | | | | | [phone] | Sinoatrial node | | | | | | dysfunction (HCC) | | | | | | with symptomatic | | | | | | bradycardia | +--------+ + + + + | 08/21/ | Implant | Cardiology | Daljit Singletary, | Remote Device | | 2020 | Monitor | | MD [address] [place] | Interrogation | | | | | [place], | (Primary Dx); | | | | | [place] [address] | Pacemaker; | | | | | [phone] | Sinoatrial node | | | | [...] | | | | | | [place] [address] | | | | | | [phone] | | | | | | | | +--------+ + + + + documented as of this encounter Visit Diagnoses Not on filedocumented in this encounter"
--- OUTSIDE RECORDS SUMMARY | ~2020-08-06 | XMS | Encounter Summary ---
Demographics + + + | Address | [address] [place] [address] [address] LOZ[address] | | | [place] [address] | + + + | Home Phone | | + + + | Preferred Language | Unknown | + + + | Marital Status | | + + + | Yazdanism Affiliation | Unknown | + + + [...] [place] | | | | | [address] | | + + + + + Care Team Providers + +------+ + | Care Senior Formulation Scientist Name | Role | Phone | [...] | | | | | Unintentiona | [place], [place] | | | | | | l weight | [address] | | | | | | loss | Phone: | | | | | | Procedures | [phone] | | | | | | CONSULT TO | Fax: | | | | | | NON - [facility] | [phone] | | | | | | PROVIDER | | | + +--------+ + + + + Reason for Visit +--------+--------+ + | Reason | Onset | Comments | | | Date | | +--------+--------+ + | Other | 10/18/ | stool tests normal, recommend hyoscyamine | | | 2018 | | +--------+--------+ [...] | | [address] | [place], [place] | hyoscyamine) | | | | for Health and | [address] | | | | | [facility], [facility] 2 | [phone] | | | | | [place], [place] | | | | | | [address] | | | | | | [phone] | | | +--------+ + + + [...] this encounter Miscellaneous Notes Addendum Note - Allyson Diehl RN - 10/24/2019 2:08 PM PST Addended by: AIXA DIEHL on: 10/24/2019 02:08 PM Modules accepted: Orders elephone Encount er - Allyson Diehl RN - 10/24/2019 1:48 PM PSTSpoke with staff at [facility] ( referring GI[facility]), they do offer PillCam at their office. We can send the referral to corie marte at f#[phone] and it will go through medical review. Spoke with Amilcar, he is willing to do capsule endoscopy locally rather than return to [facility]. Let him know I will fax referral today. He is "stocked up" on IBgard and imodium. Encouraged him to take rehydration solutions as r ecommended, he has the recipe. Asked him to call us back after he has PillCam done so we can get the report, or sooner if issues come up, he is agreeable. Referral packet with referral, office visit note and lab results faxed to f#[phone]. elephone Encounter - Allyson Diehl RN - 10/23/2019 3:53 PM PSTSpoke with Amilcar, he continues with diarrhe a and is feeling worn out by his continued illness. He has a few good days where he can sleep, but then things get worse for a few days again. He has been on hyoscyamine for 6-7 weeks. He has been taking IBgard. He has been taking lomotil 1 tablet 3 times a day (as high as 2 tablets TID, but has not be doing this lately). Is still taking nortriptyline despite side effects of "being mean." He is taking Culture probiotics 1 a day He is now avoiding dairy products. [facility] in [place] is where he gets all of his prescriptions. He is worried that we don't have all the information about his current medications. Reviewed that labs were reassuring for infection. Will have to review for recommendations w silke Rios. Discussed keeping hydrated, reminded him of oral hydration solutions given at last office v isit (he seems to be doing mostly water). Reviewed red flag symptoms to seek urgent treatment including s/sx of dehydration or severe pain, he indicates understanding. Plan and Recommendations: 09/28/19 1. [facility] in [place] for stool studies as outlined above normal 2. If negative and symptoms persist, recommend capsule endoscopy (this could be completed b y local grooving machine operator or he could return to [place] for this test) 3. Nortryptiline 25mg q HS with instruction to titrate to 50mg q HS after 2 weeks if tolera kevin side effects are prohibitive elephone Encounter - Bridgette Rios MD - 10/18/2019 3:47 PM PSTReviewed aleksandra ilable stool studies including stool pathogen panel, fecal elastase and fecal calprotectin. All unremarkable. 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 Did not tolerate nortryptiline (made him f eel "mean") Recommend Hyoscyamine 0.125 QID in scheduled fashion (Rx sent to preferred pharmacy) If not effective will add scarlett Rios MD Process Description Writer Gastroenterology elephone Encounter - Michele Brunson RN - 10/18/2019 1:34 PM PSTI spoke with Moe Sanchez on the phone a bout his symptoms. He's currently experiencing cramping "14/06". The pain is located in the c enter of his abdomen. He states "It's sucking the life out of me". He's nauseated, but isn' t vomiting. His diarrhea is consistent and hasn't let up. He's had three watery bowel moveme nts today. He states that at times he can have 7-8 bowel movements an hour. He's had these c ramps for years, but the last year has been really tough. He does not have a fever. I let hi m know I would update Dr. Rios with his symptoms. I advised him to seek emergency care if the pain becomes too severe or he's unable to maintain hydration. He stated understanding a nd had no further questions. 3: 47 PM PSTTelephone Encounter - Mel Kennedy - 10/18/2019 12:54 PM PSTPt calling regard ing symptoms. Have you recently had a procedure no, surgery no or hepatitis C treatment? no Pt has (symptom) 5 days Has patient had Fever? No Has patient had Nausea? yes Has patient had Vomiting? No Is this new or a change for you? No Is this symptom causing you pain?Yes [facility] Advised caller that they will receive a call back from RN or provider within 3 business day s. Caller understands and is agreeable to this. documented in this encounter Plan of Treatment Not on filedocumented as of this encounter Visit Diagnoses + + | Diagnosis | + + | Diarrhea, unspecified type - Primary | + + | Abdominal cramping Abdominal pain, unspecified site | + + | Unintentional weight loss Loss of weight | + + documented in this encounter
--- OUTSIDE RECORDS SUMMARY | ~2020-08-06 | XMS | Encounter Summary ---
Demographics + + + | Address | [address] | | | [place] [address] | + + + | Home Phone [...] Providers + +------+ + | Care Java Scala Developer Name | Role | Phone | [...] + | 08/19/ | Telephone | [facility] | Silvia, | Other (patient | | 2016 | | CARDIOLOGY [address] | [address] | having issues with | | | | [place], | [place], | high blood pressure) | | | | [place] [address] | [place] [address] | | | | | [phone] | [phone] | | | | | | | [...] Telma Mccoy - 08/24/2016 10:02 AM PDTLeft VM for patient to return our call and schedule appt soon with [facility] elephone Encounter - Nereida Lambert - 08/20/2016 9:42 AM PD TCalled patient to schedule follow up. No answer, left a voicemail message for patient to ca ll back. elephone Darlene Edward RN - 08/19/2016 3:10 PM PDTFrousmane called to report that he returned danyell e Wednesday from [facility]. He reports that his blood pressure has [...] 2019 | Monitor | | [address] | Interrogation | | | | | [place], | (Primary Dx); | | | | | [place] [address] | Pacemaker; | | | | | [phone] | Sinoatrial node | | | | | | dysfunction (HCC) | | | | | | with symptomatic | | | | | | bradycardia | +--------+ + + + + | 08/21/ | Implant | Cardiology | Daljit Singletary, | Remote Device | | 2020 | Monitor | | MD [address] | Interrogation | | | | | [place], | (Primary Dx); | | | | | [place] [address] | Pacemaker; | | | | | [phone] | Sinoatrial node | | | | | | dysfunction ([facility]) | | | | | | with symptomatic | | | | | | bradycardia | +--------+ + + + + | 08/21/ | Implant | Cardiology | Daljit Singletary, | Remote Device | | 2020 | Monitor | | MD [address] | Interrogation | | | | | [place], | (Primary Dx); | | | | | [place] [address] | Pacemaker; | | | | | [phone] | Sinoatrial node | | | | | | dysfunction (HCC) | | | | | | with symptomatic | | | | | | bradycardia | +--------+ + + + + | 08/21/ | Implant | Cardiology | Daljit Singletary, | Remote Device | | 2019 | Monitor | | MD [address] | Interrogation | | | | | [place], | (Primary Dx); | | | | | [place] [address] | Pacemaker; | | | | | [phone] | Sinoatrial node | | | | | | dysfunction (HCC) | | | | | | with symptomatic | | | | | | bradycardia | +--------+ + + + + | 08/21/ | Implant | Cardiology | Daljit Singletary, | Remote Device | | 2019 | Monitor | | MD [address] | Interrogation | | | | | [place], | (Primary Dx); | | | | | [place] [address] | Pacemaker; | | | | | [phone] | Sinoatrial node | | | | [...] | | | | | | [place] [address] | | | | | | [phone] | | | | | | | | +--------+ + + + + documented as of this encounter Visit Diagnoses Not on filedocumented in this encounter"
--- OUTSIDE RECORDS SUMMARY | ~2020-08-06 | XMS | Encounter Summary ---
Demographics + + + | Address | [address] | | | [place] [address] | + + + | Home Phone [...] Team Providers + +------+ + | Care Porcelain Buildup Assistant Name | Role | Phone | + +------+ + | Kirk French MD | PCP | | + +------+ + Encounter Details +--------+---------+ + + + | Date | Type | Department | Care Team | Description | +--------+---------+ + + + | 01/05/ | Surgery | [facility] | Emmanuel Daniel MD | EGD | | 2019 | | MED CTR MP INTRA OP | [address], [place] | | | | | [address] | [address] [place], [place] | | | | | [place], [place] | [address] | | | | | [address] | | | | | | [phone] | | | +--------+---------+ + + + [...] for a few hours. Date Last Reviewed: 09/22/201619999695-4248 [employer]. [address] [place] [address], [place] [address]. All righ ts reserved. This information is [...] vomiting, or vomiting blood Date Last Reviewed: 05/22/201619991140-1518 [employer]. [address] [place] [address]. All righ ts reserved. This information is [...] You can't be awakened Date Last Reviewed: 09/08/201619998500-7913 [employer]. [address] [place] [address]. All righ ts reserved. This information is [...] + + +---------+ + + | [employer] | CAPS, one capsule by | [...] of diarrhea since serving in the in [facility]. His last episodes of diarrhea started in [...] much worse after having "the flu" around . He al so states that stress seems [...] bowel disease. CT scan done through [facility] November s howed mild diverticulosis without [...] Endoscopy Patient: Moe Sanchez : 1960 Acct: [id number] Exam Date: December Doctor: Emmanuel Daniel MD [...] Exams Patient: Moe Sanchez : 1960 Acct: [id number] Exam Date: December Doctor: Emmanuel Daniel MD [...] 2019 | Monitor | | [address] | Interrogation | | | | | [place], | (Primary Dx); | | | | | [place] [address] | Pacemaker; | | | | | [phone] | Sinoatrial node | | | | | | dysfunction (HCC) | | | | | | with symptomatic | | | | | | bradycardia | +--------+ + + + + | 08/21/ | Implant | Cardiology | Daljit Singletary, | Remote Device | | 2019 | Monitor | | MD [address] | Interrogation | | | | | [place], | (Primary Dx); | | | | | [place] [address] | Pacemaker; | | | | | [phone] | Sinoatrial node | | | | | | dysfunction ([facility]) | | | | | | with symptomatic | | | | | | bradycardia | +--------+ + + + + | 08/21/ | Implant | Cardiology | Daljit Singletary, | Remote Device | | 2019 | Monitor | | MD [address] | Interrogation | | | | | [place], | (Primary Dx); | | | | | [place] [address] | Pacemaker; | | | | | [phone] | Sinoatrial node | | | | | | dysfunction (HCC) | | | | | | with symptomatic | | | | | | bradycardia | +--------+ + + + + | 08/21/ | Implant | Cardiology | Gemini Rashadotto, | Remote Device | | 2020 | Monitor | | MD [address] | Interrogation | | | | | [place], | (Primary Dx); | | | | | [place] [address] | Pacemaker; | | | | | [phone] | Sinoatrial node | | | | | | dysfunction (HCC) | | | | | | with symptomatic | | | | | | bradycardia | +--------+ + + + + | 08/21/ | Implant | Cardiology | Daljit Singletary, | Remote Device | | 2019 | Monitor | | MD [address] | Interrogation | | | | | [place], | (Primary Dx); | | | | | [place] [address] | Pacemaker; | | | | | [phone] | Sinoatrial node | | | | | | dysfunction (HCC) | | | | | | with symptomatic | | | | | | bradycardia | +--------+ + + + + | 10/23/ | Procedure | Cardiology | | | | 2020 | visit | | | | +--------+ + + + + | 10/23/ Office | Cardiology | [place], | | | 2019 | Visit | | [address] [place] [address] | | | | | | [place], | | | | | | [place] [address] | | | | | | [phone] | | | | | | | [...] + | Performed at: 01 - Michael Carroll [address], | REFERENCE LAB | | [place], [place] [id number] Manager Fiber: Miguel Galarza MD, Phone: | [facility] | | [phone] | | + + + + + + + + | Performing | Address | City/State/Zipcode | Phone Number | | Organization | | | | + + + + + | REFERENCE LAB | [address] | [place], [place] | [phone] | | [facility] | [place] | [address] | | + + + + + [...] [address], | REFERENCE LAB | | [place], [place] [id number] Manager Fiber: Miguel Galarza MD, Phone: | [facility] | | [phone] | | + + + + + + + + | Performing | Address | City/State/Zipcode | Phone Number | | Organization | | | | + + + + + | REFERENCE LAB | [address] | [place], [place] | [phone] | | [facility] | [place] | [address] | | + + + + + [...] ST. | [address] | [place], [place] | [phone] | | [facility] | | [address] | | | - LABORATORY | | [...] [address] | [place] | [phone] | | [facility] | | [address] | | | - LABORATORY | | [...] | | dium | | | [facility] | | | Antigen | | | [...] [address] | [place] | [phone] | | [facility] | | [address] | | | - LABORATORY | | [...] | [facility] | [address] | [place] | [phone] | | [facility] | | [address] | | | - LABORATORY | | [...] | | er, NAAT | | | [address] | [...] [address] | [place] | [phone] | | [facility] | | [address] | | | - LABORATORY | | [...] | [facility] | [address] | [place] | [phone] | | [facility] | | [address] | | | - LABORATORY | | | | + + + + + EGD (01/05/2019 8:36 AM PST) + + | Specimen | + + | | + + + + -+ | Narrative | Performed At | + + -+ | | [facility] | | GastroenterologyPatient Name: Moe Venegas Date: | PROVATION | | 01/05/2019 8:36 AMMRN: [id number] #: [id number] of : | | | 9Admit Type: AmbulatoryAge: 58Room: [facility] 01Gender: MaleNote | | | Status: FinalizedAttending MD: Emmanuel Daniel , MDProcedure: | | | Upper GI endoscopyIndications: Diarrhea, Weight | | | lossProviders: Emmanuel Daniel MD, Heidi Mixon [place], | | | RN, Kim Hicks, Hogshead Stock Clerk, | | | Jarett P. Skaarup, MD (Anesthesia | | | Staff)Referring MD: [...] physician, the nurse, the anesthesiologist and the certified technician | | | in the endoscopy [...] | | Imaging was performed using the [employer]elligent [employer] | | | Endoscopy (FICE) [...] Scope In: 8:43:57 AMScope Out: 8:49:50 AM [facility]. | | | [facility], [address] [place] [address] | | | [phone] | | |Recommendation: | | | - [...] |Scope Out: 8:49:50 AM | | | [facility]. [facility], [address] [place] [address] | | | [address] | | + + -+ + +---------+ [...] | PROVATION | | 01/05/2019 8:36 AMMRN: [id number] #: [id number] of : | | | 9Admit Type: AmbulatoryAge: 58Room: [facility] 01Gender: MaleNote | | | Status: FinalizedAttending MD: Emmanuel Daniel , [facility]cedure: | | | ColonoscopyIndications: Clinically significant diarrhea of | | | unexplained origin, Weight lossProviders: | | | Emmanuel Daniel MD, Heidi An RN, Kim | | | Fiorella Hicks, Hogshead Stock Clerk, Jarett Quezada. | | | MD Roshni [...] | | | the anesthesiologist and the certified technician in the endoscopy suite. | | [...] AMScope Out: | | | 9:06:28 AM [facility]ed [facility], [address] [facility], | | | [place] [address] | | | - Discharge patient to [...] |Scope Out: 9:06:28 AM | | | Merged With [facility], [address] [place], [place] | | | [address] | | + + -+ + +---------+ [...] | | | (atherosclerotic heart disease of [place] coronary artery without | | | angina [...] chronic or | | | microscopic colitis. BES:sm:C3NR GROSS DESCRIPTION: A. The | | | specimen, labeled "[place], duodenal biopsy" is received in formalin | | | and consists of seven 0.1-0.5 cm lin fragments. Entirely submitted in | | | (A1). B. The specimen, labeled "[place], right colon" is received | | | in formalin and consists of six 0.2-0.3 cm lin fragments. Entirely | | | submitted in (B1). C. The specimen, labeled "[place], left colon" | | | is received in formalin and consists of six 0.2-0.3 cm lin-pink | | | fragments. Entirely submitted in (C1). am:AMB:portillo PERFORMING | | | LABORATORY: The technical component was performed by [facility] | | | [place] [address] ([employer]: | | | Kailey Stafford MD; CLIA# [id number]). Professional interpretation was | | | performed by [place] [address] | | | [place] [address] ([employer]: Ishaan | | | Anthony Dao; CLIA#: [id number]). Diagnostician: Ishaan Fitzpatrick | | | Sylwia [...] ONCE PRN, Wheezing, | | | Starting [facility] 01/05/19 at 0924, | | | [...]
--- OUTSIDE RECORDS SUMMARY | ~2020-08-06 | XMS | Encounter Summary ---
Demographics + + + | Address | [address] [place] [address] [address]O | | | [place] [address] | + + + | Home Phone [...] [place] | | | | | [address] | | + + + + + Care Team Providers + +------+ + | Care Sample Maker Hand Name | Role | Phone | + +------+ + | Darion Holden DO | PCP | | + +------+ + Reason for Visit + +--------+ + | Reason | Onset | Comments | | | Date | | + +--------+ + | Care Coordination | 01/22/ | capsule referral | | | 2020 | | + +--------+ + Encounter Details +--------+ + + + + | Date | Type | Department | Care Team | Description | +--------+ + + + + | 01/22/ | Telephone | Digestive Health | [facility] [address] | Care Coordination | | 2020 | | Center at [facility] [address] | [facility] | (capsule referral) | | | | [address] [facility] | Road [place], [place] | | | | | for Health and | [address] | | | | | Healing, [facility] | | | | | | [place], [place] | | | | | | [address] | | | | | | [phone] | | | +--------+ + + + [...] Telephone Encounter - Allyson Diehl RN - 01/23/2020 10:12 AM PSTFormatting of this not e might be different from the original. AFTER MEDICAL REVIEW to be scheduled: [x]Capsule Endoscopy: [x]Small Bowel When to be scheduled: To be scheduled with: 2 to 4 weeks Hx of diabetes? no Other: schedule with colonoscopy Patient Denied - (Reason): [] Get Images Pushed to IMPAX Other Comments: 59 y.o. 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 Next 4 weeks Does provider want different prep? Yes - will do prep for same day colonoscopy History of constipation or gastroparesis? no (consider endoscopic placement for hx gastroparesis, and/or enhanced bowel prep for constip ation) Patency capsule needed? no Implanted device? yes (ALL implanted devices are contraindicated with PillCam) If yes must document that [facility] allows concomitant use of pacer/defib per evidence based practice On oral iron? no If yes then must stop x 7 days No contraindications present (esophageal stricture, Zenker diverticulum, known intermittent or PSBO, ) no PROC capsule order entered with RMD name? yes Approved by reviewing MD? Blanca documented in this encounter Plan of Treatment Not on filedocumented as of this encounter Visit Diagnoses Not on filedocumented in this encounter"
--- OUTSIDE RECORDS SUMMARY | ~2020-08-06 | XMS | Encounter Summary ---
Demographics + + + | Address | [address] | | | [place] [address] | + + + | Home Phone [...] Team Providers + +------+ + | Care Foot Setter Name | Role | Phone | + +------+ + | Kirk French MD | PCP | | + +------+ + Reason for Visit + +--------+ + | Reason | Onset | Comments | | | Date | | + +--------+ + | Appointment | 01/25/ | | | | 2017 | | + +--------+ + Encounter Details +--------+ + + + + | Date | Type | Department | Care Team | Description | +--------+ + + + + | 01/25/ | Telephone | [facility] | Daljit Singletary, | Appointment | | 2017 | | CARDIOLOGY [address] | | | | | [place], | [place], | | | | | [place] [address] | [place] [address] | | | | | [phone] | [phone] | | | | | | | [...] Notes Telephone Encounter - Briseida Martino - 01/26/2017 3:05 PM PSTPatient has been scheduled on 01-27-17. elephone Encangel nter - Briseida Martino - 01/25/2017 8:16 AM PSTThis patient is an established Dr. Anshu bashir that has, also, been seen by Janeen Ramirez and Geri Angel. Patient recently seen [facility] ER and has been referred for follow-up by ER provider. Referral number [id number] has been created. Called patient, left [facility] with request for patient to call back to schedule.El ectronically signed by Briseida Martino at 01/25/2017 8:18 AM PSTdocumented in this encounte r Plan of Treatment +--------+ + + + + | Date | Type | Specialty | Care Team | Description | +--------+ + + + + | 08/21/ | Implant | Cardiology | Daljit Singletary, | Remote Device | | 2019 | Monitor | | MD [address] | Interrogation | | | | | [place], | (Primary Dx); | | | | | [place] [address] | Pacemaker; | | | | | [phone] | Sinoatrial node | | | | | | dysfunction (HCC) | | | | | | with symptomatic | | | | | | bradycardia | +--------+ + + + + | 08/21/ | Implant | Cardiology | Daljit Singletary, | Remote Device | | 2019 | Monitor | | MD [address] | Interrogation | | | | | [place], | (Primary Dx); | | | | | [place] [address] | Pacemaker; | | | | | [phone] | Sinoatrial node | | | | | | dysfunction (HCC) | | | | | | with symptomatic | | | | | | bradycardia | +--------+ + + + + | 08/21/ | Implant | Cardiology | Daljit Singletary, | Remote Device | | 2020 | Monitor | | MD [address] | Interrogation | | | | | [place], | (Primary Dx); | | | | | [place] [address] | Pacemaker; | | | | | [phone] | Sinoatrial node | | | | | | dysfunction (HCC) | | | | | | with symptomatic | | | | | | bradycardia | +--------+ + + + + | 08/21/ | Implant | Cardiology | Daljit Singletary, | Remote Device | | 2019 | Monitor | | MD [address] | Interrogation | | | | | [place], | (Primary Dx); | | | | | [place] [address] | Pacemaker; | | | | | [phone] | Sinoatrial node | | | | | | dysfunction (HCC) | | | | | | with symptomatic | | | | | | bradycardia | +--------+ + + + + | 08/21/ | Implant | Cardiology | Daljit Singletary, | Remote Device | | 2019 | Monitor | | MD [address] | Interrogation | | | | | [place], | (Primary Dx); | | | | | [place] [address] | Pacemaker; | | | | | [phone] | Sinoatrial node | | | | [...] | | | | | | [place] [address] | | | | | | [phone] | | | | | | | | +--------+ + + + + documented as of this encounter Visit Diagnoses Not on filedocumented in this encounter"
--- OUTSIDE RECORDS SUMMARY | ~2020-08-06 | XMS | Encounter Summary ---
Demographics + + + | Address | [address] | | | [place] [address] | + + + | Home Phone [...] Team Providers + +------+ + | Care New Patient Escort Name | Role | Phone | [...] + | 02/21/ | Office | [facility] | Sil[place], | Coronary artery | | 2019 | Visit | CARDIOLOGY [address] | [address] | disease involving | | | | [place], | [place], | [place] coronary | | | | [place] [address] | [place] [address] | artery of [place] | | | | [phone] | [phone] | heart without angina | | | [...] of non-critical coronary artery d isease involving [place] coronary artery of [place] heart without angina pectoris, [...] stay active. He enjoys hunting in his [employer]. He has not had any chest pain [...] 3RD DOSE, CALL 911 100 tablet 3 [place]-3 Fatty Acids (SALMON OIL-1000 PO) CAPS, one capsule by mouth daily twice daily ondansetron (ZOFRAN ODT) 4 mg disintegrating tablet Take 4 mg by mouth. ONE TOUCH DELICA LANCETS [facility] [...] was found Confirmed by ANGELA MARADIAGA MD ([id number]) on 01/03/2019 8:10:39 PM LAB RESULTS reviewed during visit today primarily from [facility]: LIPID Lab Results Component Value [...] BNP 15 01/02/2019 I reviewed records from [facility] for angiogram results on 019 which is summarized in the HPI. RESULTS- I reviewed reports from [facility]: No results found. Left heart catheterization [...] ASSESSMENT: 1. Non-critical Coronary artery disease involving [place] coronary artery of [place] heart [facility] angina pectoris: A.Normal exercise sestamibi stress test [...] emostasis with a TR hemostatic band, by Daljit Singletary MD J. Today, 02/21/2019, he is symptomatic. He has [...] Symptoms with moderate exertion of t he [employer] functional class. Heart failure stage [...] performed by Dr Juan Diego Gambino at [facility] on 01/30/2013.Patient had spontaneous PVC's fro m [...] to go back in 3 days to [place] for an attempt of ablation under general [...] this chart may have been created with [employer] voice recognition software. Occasi onal wrong-word or [...] Interrogation | | | | | [place], | (Primary Dx); | | | | | [place] [address] | Pacemaker; | | | | | [phone] | Sinoatrial node | | | | | | dysfunction (HCC) | | | | | | with symptomatic | | | | | | bradycardia | +--------+ + + + + | 08/21/ | Implant | Cardiology | Daljit Singletary, | Remote Device | | 2019 | Monitor | | MD [address] [place] | Interrogation | | | | | [place], | (Primary Dx); | | | | | [place] [address] | Pacemaker; | | | | | [phone] | Sinoatrial node | | | | | | dysfunction (HCC) | | | | | | with symptomatic | | | | | | bradycardia | +--------+ + + + + | 08/21/ | Implant | Cardiology | Daljit Singletary, | Remote Device | | 2019 | Monitor | | MD [address] [place] | Interrogation | | | | | [place], | (Primary Dx); | | | | | [place] [address] | Pacemaker; | | | | | [phone] | Sinoatrial node | | | | | | dysfunction (HCC) | | | | | | with symptomatic | | | | | | bradycardia | +--------+ + + + + | 08/21/ | Implant | Cardiology | Daljit Singletary, | Remote Device | | 2020 | Monitor | | MD [address] [place] | Interrogation | | | | | [place], | (Primary Dx); | | | | | [place] [address] | Pacemaker; | | | | | [phone] | Sinoatrial node | | | | | | dysfunction (HCC) | | | | | | with symptomatic | | | | | | bradycardia | +--------+ + + + + | 08/21/ | Implant | Cardiology | Daljit Singletary, | Remote Device | 2019 | Monitor | | [address] [place] | Interrogation | | | | | [place], | (Primary Dx); | | | | | [place] [address] | Pacemaker; | | | | | [phone] | Sinoatrial node | | | | [...] | | | | | | [place], | | | | | | [place] [address] | | | | | | [phone] | | | | | | | | +--------+ + + + + documented as of this encounter Visit Diagnoses + + | Diagnosis | + + | Coronary artery disease involving [place] coronary artery of [place] heart without | | angina pectoris - Primary | + + | Symptomatic PVCs Other premature beats | + + | Essential hypertension Unspecified essential hypertension | + + | Remote Device Interrogation [...]
--- OUTSIDE RECORDS SUMMARY | ~2020-08-06 | XMS | Encounter Summary ---
Demographics + + + | Address | [address] [place] [address] [address] | | | [place] [address] | + + + | Home Phone | | + + + | Preferred Language | Unknown | + + + | Marital Status | | + + + | Jew Affiliation | Unknown | + + + | Race | White | + + + | Ethnic Group | Not or | + + + Author + + + | Author | [facility] | + + + | Organization | [facility] | + + + | Address | Unknown | + + + | Phone | Unavailable | + + + Support + + + + + | Name | Relationship | Address | Phone | + + + + + | Rachel Valencia | ELIEZER | [place] | | | | | [address] | | + + + + + Care Team Providers + +------+ + | Care Prescription Clerk Name | Role | Phone | [...] | | | | | [place] | [place], [place] | | | | | | [place], [place] | [address] | | | | | | [address] | Phone: | | | | | | Phone: | [phone] | | | | | | [phone] | Fax: | | | | | | Fax: | [phone] | | | | | | [phone] | | +--------+--------+ + + + + Encounter Details +--------+---------+ + + + | Date | Type | Department | Care Team | Description | +--------+---------+ + + + | 09/28/ | Office | Digestive Health | Bridgette Rios, | Chronic diarrhea | | 2019 | Visit | [facility] at [facility] [address] | [address] | (Primary Dx); | | | | [address] [facility] | [place], [place] | Abdominal cramping; | | | | for Health and | [address] | Unintentional weight | | | | [facility], [facility] [address] | [phone] | loss | | | | [place], [place] | | | | | | [address] | | | | | | [phone] | | | +--------+---------+ + + + [...] some lab orders to [place] 2. supply chain engineer the nortryptiline and take 1 tablet each [...] different fr om the original. Gastroenterology Clinic [facility] ~ Initial Consultation / New Patient [...] inflammatory bowel disease. CT scan done through [facility] November show ed mild diverticulosis without [...] of Present Illness: Here with his from [place] for second opinion regarding severe abdominal cramps, isreal rrhea and weight loss following a GI illness contracted during a trip to [facility]. He reports that 2 years ago he was traveling in [facility] and he had some suspicious seafood. He develo ps profound bloody diarrhea with severe abdominal pain. He was hospitalized in [facility] and w as treated with [...] file Gets together: Not on file Attends confucianist service: Not on file Active member of [...] Plan and Recommendations: 1. [facility] in [place] for stool studies as outlined above 2. If negative and symptoms persist, recommend capsule endoscopy (this could be completed b y local quality assurance coordinator or he could return to [place] for this test) 3. Nortryptiline 25mg q HS with instruction to titrate to 50mg q HS after 2 weeks if tolera kevin Follow-Up: with local quality assurance coordinator Counseling Time: I spent a total of 35 minutes with this patient, of which greater than 50 % of the time was spent in counseling. Specific issues that were discussed included a revie w of the disease, diagnostic tools that help in our management plans for the patient's chron ic diarrhea, abdominal cramping and weight loss and goals for treatment. Bridgette Rios MD [facility] documented in this e ncounter Plan [...]
--- OUTSIDE RECORDS SUMMARY | ~2020-08-06 | XMS | Encounter Summary ---
Demographics + + + | Address | [address] | | | [place] [address] | + + + | Home Phone [...] Providers + +------+ + | Care Mail Carriers Supervisor Name | Role | Phone | + +------+ + | Kirk French MD | PCP | | + +------+ + Encounter Details +--------+ + + + + | Date | Type | Department | Care Team | Description | +--------+ + + + + | 06/19/ | Abstract | [facility] [place] | Geri Angel, | | | 2015 | | CARDIOLOGY [address] | TRIMMING CUTTER [address] | | | | | [place], | [place], [place] | | | | | [place] [address] | [address] | | | | | [phone] | | | +--------+ + + + [...] | Monitor | | MD [address] | Interrogation | | | | | [place], | (Primary Dx); | | | | | [place] [address] | Pacemaker; | | | | | [phone] | Sinoatrial node | | | | | | dysfunction (HCC) | | | | | | with symptomatic | | | | | | bradycardia | +--------+ + + + + | 08/21/ | Implant | Cardiology | aDljit Singletary, | Remote Device | | 2020 | Monitor | | MD [address] | Interrogation | | | | | [place], | (Primary Dx); | | | | | [place] [address] | Pacemaker; | | | | | [phone] | Sinoatrial node | | | | | | dysfunction (HCC) | | | | | | with symptomatic | | | | | | bradycardia | +--------+ + + + + | 08/21/ | Implant | Cardiology | Daljit Singletary, | Remote Device | | 2019 | Monitor | | MD [address] | Interrogation | | | | | [place], | (Primary Dx); | | | | | [place] [address] | Pacemaker; | | | | | [phone] | Sinoatrial node | | | | | | dysfunction (HCC) | | | | | | with symptomatic | | | | | | bradycardia | +--------+ + + + + | 08/21/ | Implant | Cardiology | Daljit Singletary, | Remote Device | | 2019 | Monitor | | MD [address] [place] | Interrogation | | | | | [place], | (Primary Dx); | | | | | [place] [address] | Pacemaker; | | | | | [phone] | Sinoatrial node | | | | | | dysfunction (HCC) | | | | | | with symptomatic | | | | | | bradycardia | +--------+ + + + + | 08/21/ | Implant | Cardiology | Daljit Singletary, | Remote Device | | 2019 | Monitor | | MD [address] [place] | Interrogation | | | | | [place], | (Primary Dx); | | | | | [place] [address] | Pacemaker; | | | | | [phone] | Sinoatrial node | | | | [...] W | | | | | | [place], | | | | | | [place] [address] | | | | | | [phone] | | | | | | | | +--------+ + + + + documented as of this encounter Visit Diagnoses Not on filedocumented in this encounter"
--- OUTSIDE RECORDS SUMMARY | ~2020-08-06 | XMS | Encounter Summary ---
Demographics + + + | Address | [address] | | | [place] [address] | + + + | Home Phone [...] Providers + +------+ + | Care Solution Design Engineer Name | Role | Phone | + +------+ + | Kirk French MD | PCP | | + +------+ + Reason for Visit + +--------+ + | Reason | Onset | Comments | | | Date | | + +--------+ + | Lab Order | 06/22/ | | | | 2019 | | + +--------+ + Encounter Details +--------+ + + + + | Date | Type | Department | Care Team | Description | +--------+ + + + + | 06/22/ | Telephone | [facility] | Emmanuel Daniel MD | Lab Order | | 2019 | | GASTROENTEROLOGY | [address], [place] | | | | | [address] [place] | [address] [place], [place] | | | | | [address] [place], [place] | [address] | | | | | [address] | | | | | | [phone] | | | +--------+ + + + [...] Telephone Encounter - Kaylynn Copeland RN - 06/27/2019 8:[address], no fu rther contact with patient until the labs Dr. Daniel ordered in March have been completed.Elect ronically signed by Kaylynn Copeland RN at 06/27/2019 8:33 AM PDTTelephone Encounter - Kaylynn Copeland RN - 06/22/2019 3:21 PM PDTPt calls saying he had shoulder surgery . He is on dilaudid and is now constipated. States his stools are "hard as a football ". He states he going to start stool softeners and he stopped the lomotil. He said he never did have the labs that Dr Daniel ordered in March T4, celiac panel, gastrin, lipase, VIP, maria luz citon and 24 hr urine 5 HIAA or plasma 5HIAA. He states there was too long of wait at the lab, states it would have been a 4 hour wait. He wants to have labs ordered at [facility] ut he wants to wait to see if diarrhea returns after he is off the dilaudid. He will call en he is ready to have labs ordered. Electronically signed by Kaylynn Copeland RN at 11/2018 3:29 PM PDTdocumented in this encounter Plan of Treatment +--------+ + + + + | Date | Type | Specialty | Care Team | Description | +--------+ + + + + | 08/21/ | Implant | Cardiology | Daljit Singletary, | Remote Device | | 2019 | Monitor | | MD [address] | Interrogation | | | | | [place], | (Primary Dx); | | | | | [place] [address] | Pacemaker; | | | | | [phone] | Sinoatrial node | | | | | | dysfunction (HCC) | | | | | | with symptomatic | | | | | | bradycardia | +--------+ + + + + | 08/21/ | Implant | Cardiology | Daljit Singletary, | Remote Device | | 2019 | Monitor | | [address] | Interrogation | | | | | [place], | (Primary Dx); | | | | | [place] [address] | Pacemaker; | | | | | [phone] | Sinoatrial node | | | | | | dysfunction (HCC) | | | | | | with symptomatic | | | | | | bradycardia | +--------+ + + + + | 08/21/ | Implant | Cardiology | Daljit Singletary, | Remote Device | | 2019 | Monitor | | MD [address] | Interrogation | | | | | [place], | (Primary Dx); | | | | | [place] [address] | Pacemaker; | | | | | [phone] | Sinoatrial node | | | | | | dysfunction ([facility]) | | | | | | with symptomatic | | | | | | bradycardia | +--------+ + + + + | 08/21/ | Implant | Cardiology | Daljit Singletary, | Remote Device | | 2019 | Monitor | | MD [address] | Interrogation | | | | | [place], | (Primary Dx); | | | | | [place] [address] | Pacemaker; | | | | | [phone] | Sinoatrial node | | | | | | dysfunction (HCC) | | | | | | with symptomatic | | | | | | bradycardia | +--------+ + + + + | 08/21/ | Implant | Cardiology | Daljit Singletary, | Remote Device | | 2019 | Monitor | | [address] | Interrogation | | | | | [place], | (Primary Dx); | | | | | [place] [address] | Pacemaker; | | | | | [phone] | Sinoatrial node | | | | [...] W | | | | | | [place], | | | | | | [place] [address] | | | | | | [phone] | | | | | | | | +--------+ + + + + documented as of this encounter Visit Diagnoses Not on filedocumented in this encounter
--- OUTSIDE RECORDS SUMMARY | ~2020-08-06 | XMS | Encounter Summary ---
Demographics + + + | Address | [address] [place] [address] [address] | | | [place] [address] | + + + | Home Phone [...] [place] | | | | | [address] | | + + + + + Care Team Providers + +------+ + | Care Petroleum Production Engineer Name | Role | Phone | [...] Chest pain | Farooq Almaguer, | [facility] [address] | | | | | Bradycardia | DO [address] | | | | | Procedures | Yao Booth | [facility] | | | | | | [facility] | Health and | | | | | TRANSTHORACI | [facility] [place] | Healing, | | | | | C | [address] | [address] | | | | | ECHOCARDIOGR | Phone: | [place], [place] | | | | | AM, ADULT | [phone] | [address] | | | | | | Fax: | Phone: | | | | | | [phone] | [phone] | +--------+--------+ + + + + Encounter Details +--------+ + + + + | Date | Type | Department | Care Team | Description | +--------+ + + + + | 02/03/ | Hospital | Cardiac | | | | 2010 | Encounter | Non-Invasive Testing | | | | | | at [facility] [address] | | | | | | [facility] | | | | | | Health and Healing, | | | | | | [address] | | | | | | [place], [place] | | | | | | [address] | | | | | | [phone] | | | +--------+ + + + [...] by mouth. 2 | | 0 | /15/20 | | | (OXYCONTIN) 20 mg | tablets two to three | | | 11 | | | Oral Tablet Extended | times daily | | | | | | Release 12 hr | | | | | | + + + +---------+ + + | oxyCODONE, | Take by mouth. 1-2 | | 0 | /15/20 | | | immediate release, | tablets every 4-6 | | | 11 | | | 30 mg Oral Tablet | hours | | | | | + + + +---------+ + + | SALMON OIL/OMEGA-3 | Take 2 Caps by mouth | | 0 | 03/15/20 | | | FATTY ACIDS (SALMON | once daily. | | | 11 | | | OIL-1000 ORAL) | | | | | | + + + +---------+ + + documented as of this encounter Progress Rolan Kimball - 02/03/2011 4:03 PM PDTTransthoracic echocardiogram completed. Final report to follow. documented in this encounter Procedure Rachel Andrade - 02/03/2011 4:42 PM PDTAssociated Order(s): TRANSTHORACIC ECHOCARDIOGRAM, ADULT; TRANSTHORACIC ECHOCARDIOGRAM, ADULT documented in this encou nter Plan of [...]
--- OUTSIDE RECORDS SUMMARY | ~2020-08-06 | XMS | Encounter Summary ---
Demographics + + + | Address | [address] | | | [place] [address] | + + + | Home Phone [...] + +------+ + | Care Laser Beam Trim Operator Name | Role | Phone | [...] + + | 07/07/ | Telephone | [facility] | Daljit Singletary, | Appointment | | 2012 | | CARDIOLOGY [address] | [address] [place] | | | | | [place], | [place], | | | | | [place] [address] | [place] [address] | | | | | [phone] | [phone] | | | | | | | [...] AM PDTPer Joy at Dr Gambino in [place]: Patient h ad an ablation in January [...] Interrogation | | | | | [place], | (Primary Dx); | | | | | [place] [address] | Pacemaker; | | | | | [phone] | Sinoatrial node | | | | | | dysfunction (HCC) | | | | | | with symptomatic | | | | | | bradycardia | +--------+ + + + + | 08/21/ | Implant | Cardiology | Daljit Singletary, | Remote Device | | 2019 | Monitor | | MD [address] [facility] | Interrogation | | | | | [place], | (Primary Dx); | | | | | [place] [address] | Pacemaker; | | | | | [phone] | Sinoatrial node | | | | | | dysfunction (HCC) | | | | | | with symptomatic | | | | | | bradycardia | +--------+ + + + + | 08/21/ | Implant | Cardiology | Daljit Singletary, | Remote Device | | 2019 | Monitor | | MD [address] [place] | Interrogation | | | | | [place], | (Primary Dx); | | | | | [place] [address] | Pacemaker; | | | | | [phone] | Sinoatrial node | | | | | | dysfunction (HCC) | | | | | | with symptomatic | | | | | | bradycardia | +--------+ + + + + | 08/21/ | Implant | Cardiology | Daljit Singletary, | Remote Device | | 2020 | Monitor | | MD [address] [place] | Interrogation | | | | | [place], | (Primary Dx); | | | | | [place] [address] | Pacemaker; | | | | | [phone] | Sinoatrial node | | | | | | dysfunction (HCC) | | | | | | with symptomatic | | | | | | bradycardia | +--------+ + + + + | 08/21/ | Implant | Cardiology | Daljit Singletary, | Remote Device | | 2019 | Monitor | | MD [address] [place] | Interrogation | | | | | [place], | (Primary Dx); | | | | | [place] [address] | Pacemaker; | | | | | [phone] | Sinoatrial node | | | | [...] W | | | | | | [place], | | | | | | [place] [address] | | | | | | [phone] | | | | | | | | +--------+ + + + + documented as of this encounter Visit Diagnoses Not on filedocumented in this encounter"
--- OUTSIDE RECORDS SUMMARY | ~2020-08-06 | XMS | Encounter Summary ---
Demographics + + + | Address | [address] [place] [address] [address] | | | [place] [address] | + + + | Home Phone [...] + + + | Author | [facility] | + + + | Organization | [facility] | + + + | Address | Unknown | + + + | Phone | Unavailable | + + + Support + + + + + | Name | Relationship | Address | Phone | + + + + + | Rachel Valencia | ELIEZER | [place] | | | | | [address] | | + + + + + Care Team Providers + +------+ + | Care Director Of Learning Name | Role | Phone | + [...] Yao | | | | | at [facility] | [facility] | | | | | [address] | [place] [address] | | | | | [address] | | | | | | [place], [address] [place] [address] | | | | | | [place], [place] | | | | | | [address] | | | | | | [phone] | | | +--------+ + + + [...] view image for the detailed interpretation from [facility] results. | CARDIOLOGY | + + + + + + + + | Performing | Address | City/State/Zipcode | Phone Number | | Organization | | | | + + + + + | [facility] | [address] | [place], [place] | | | CARDIOLOGY | [address] | [address] | | + + + + + documented in this encounter Visit Diagnoses Not on filedocumented in this encounter"
--- OUTSIDE RECORDS SUMMARY | ~2020-08-06 | XMS | Encounter Summary ---
Demographics + + + | Address | [address] | | | [place] [address] | + + + | Home Phone [...] Team Providers + +------+ + | Care Installer Inspector Final Name | Role | Phone | + [...] Refill | | 2013 | | [facility] [place] | DO [address] | | | | | [address] | [place] | | | | | [place] | [address] | | | | | [address] | | | | | | [phone] | | | +--------+--------+ + + + [...] this encounter Miscellaneous Notes Telephone Encounter - Donna Hirsch RN - 10/25/2014 2:39 PM PSTLast seen 07/25/14. No refill protocol, is it ok to refill this medication? documented in this en counter Plan of [...] Dx); | | | | | [place] [address] | Pacemaker; | | | | | [phone] | Sinoatrial node | | | | | | dysfunction (HCC) | | | | | | with symptomatic | | | | | | bradycardia | +--------+ + + + + | 08/21/ | Implant | Cardiology | Daljit Singletary, | Remote Device | | 2019 | Monitor | | MD [address] | Interrogation | | | | | [place], | (Primary Dx); | | | | | [place] [address] | Pacemaker; | | | | | [phone] | Sinoatrial node | | | | | | dysfunction (HCC) | | | | | | with symptomatic | | | | | | bradycardia | +--------+ + + + + | 08/21/ | Implant | Cardiology | Daljit Singletary, | Remote Device | | 2019 | Monitor | | MD [address] | Interrogation | | | | | [place], | (Primary Dx); | | | | | [place] [address] | Pacemaker; | | | | | [phone] | Sinoatrial node | | | | | | dysfunction (HCC) | | | | | | with symptomatic | | | | | | bradycardia | +--------+ + + + + | 08/21/ | Implant | Cardiology | Daljit Singletary, | Remote Device | | 2020 | Monitor | | MD [address] | Interrogation | | | | | [place], | (Primary Dx); | | | | | [place] [address] | Pacemaker; | | | | | [phone] | Sinoatrial node | | | | | | dysfunction (HCC) | | | | | | with symptomatic | | | | | | bradycardia | +--------+ + + + + | 08/21/ | Implant | Cardiology | Daljit Singletary, | Remote Device | 2019 | Monitor | | [address] | Interrogation | | | | | [place], | (Primary Dx); | | | | | [place] [address] | Pacemaker; | | | | | [phone] | Sinoatrial node | | | | [...] W | | | | | | [place], | | | | | | [place] [address] | | | | | | [phone] | | | | | | | | +--------+ + + + + documented as of this encounter Visit Diagnoses Not on filedocumented in this encounter"
--- OUTSIDE RECORDS SUMMARY | ~2020-08-06 | XMS | Encounter Summary ---
Demographics + + + | Address | [address] | | | [place] [address] | + + + | Home Phone [...] Providers + +------+ + | Care Staff Training And Development Manager Name | Role | Phone [...] [address] | | | | | | [place], [place] | (Fax) | | | | | [address] | | | | | | [phone] | | | +--------+ + + + [...] | Monitor | | MD [address] | Interrogation | | | | | [place], | (Primary Dx); | | | | | [place] [address] | Pacemaker; | | | | | [phone] | Sinoatrial node | | | | | | dysfunction (HCC) | | | | | | with symptomatic | | | | | | bradycardia | +--------+ + + + + | 08/21/ | Implant | Cardiology | Daljit Singletary, | Remote Device | | 2019 | Monitor | | MD [address] | Interrogation | | | | | [place], | (Primary Dx); | | | | | [place] [address] | Pacemaker; | | | | | [phone] | Sinoatrial node | | | | | | dysfunction (HCC) | | | | | | with symptomatic | | | | | | bradycardia | +--------+ + + + + | 08/21/ | Implant | Cardiology | Daljit Singletary, | Remote Device | | 2019 | Monitor | | MD [address] | Interrogation | | | | | [place], | (Primary Dx); | | | | | [place] [address] | Pacemaker; | | | | | [phone] | Sinoatrial node | | | | | | dysfunction (HCC) | | | | | | with symptomatic | | | | | | bradycardia | +--------+ + + + + | 08/21/ | Implant | Cardiology | Daljit Singletary, | Remote Device | | 2019 | Monitor | | MD [address] | Interrogation | | | | | [place], | (Primary Dx); | | | | | [place] [address] | Pacemaker; | | | | | [phone] | Sinoatrial node | | | | | | dysfunction (HCC) | | | | | | with symptomatic | | | | | | bradycardia | +--------+ + + + + | 08/21/ | Implant | Cardiology | Daljit Singletary, | Remote Device | | 2020 | Monitor | | MD [address] | Interrogation | | | | | [place], | (Primary Dx); | | | | | [place] [address] | Pacemaker; | | | | | [phone] | Sinoatrial node | | | | | | dysfunction ([facility]) | | | | | [...] | | | | | | [place] [address] | | | | | | [phone] | | | | | | | | +--------+ + + + + documented as of this encounter Visit Diagnoses Not on filedocumented in this encounter"
--- OUTSIDE RECORDS SUMMARY | ~2020-08-06 | XMS | Encounter Summary ---
Demographics + + + | Address | [address] [place] [address] [address] | | | [place] [address] | + + + | Home Phone [...] + + + | Author | [facility] | + + + | Organization | [facility] | + + + | Address | Unknown | + + + | Phone | Unavailable | + + + Support + + + + + | Name | Relationship | Address | Phone | + + + + + | Rachel Valencia | ELIEZER | [place] | | | | | [address] | | + + + + + Care Team Providers + +------+ + | Care Pipe Puller Name | Role | Phone | [...] | | | | | unspecified | [address] | | | | | | type Rectal | Ave | | | | | | bleeding | [facility] [place] | | | | | | Procedures | [address] | | | | | | CONSULT TO | Phone: | | | | | | GASTROENTERO | [phone] | | | | | | LOGY | Fax: | | | | | | | [phone] | | + +--------+ + + + [...] | | | | | Procedures | [place], [place] | [facility] and | | | | | CONSULT TO | [address] | Healing, | | | | | ENDOSCOPY | Phone: | Building 2 | | | | | UNIT: SM | [phone] | [place], [place] | | | | | BOWEL | Fax: | [address] | | | | | CAPSULE | [phone] | Phone: | | | | | ENDOSCOPY | | [phone] | | | | | | | Fax: | | | | | | | [phone] | + +--------+ + + + + [...] | | | | | bleeding | [place], [place] | [facility] and | | | | | Procedures | [address] | Healing, | | | | | CONSULT TO | Phone: | Building 2 | | | | | ENDOSCOPY | [phone] | [place], [place] | | | | | UNIT: | Fax: | [address] | | | | | COLONOSCOPY | [phone] | Phone: | | | | | | | [phone] | | | | | | | Fax: | | | | | | | [phone] | +--------+--------+ + + + + Reason for Visit +--------+--------+ + | Reason | Onset | Comments | | | Date | | +--------+--------+ + | Other | 01/04/ | | | | 2020 | | +--------+--------+ + Encounter Details +--------+ + + + + | Date | Type | Department | Care Team | Description | +--------+ + + + + | 01/04/ | Telephone | Digestive Health | Bridgette Rios, | Other | | 2019 | | Center at [facility] [address] | MD [address] | | | | | [address] | [facility] [place] | | | | | for Health and | [address] | | | | | Healing, Building [address] | [phone] | | | | | [place], [place] | | | | | | [address] | | | | | | [phone] | | | +--------+ + + + [...] encounter Miscellaneous Notes Telephone Encounter - Allyson Dihel RN - 02/01/2020 2:57 PM PDTLVM with phone number below, requesting he call them to schedule his procedures. [facility] phone [phone] signed by Allyson Diehl RN at 02/01/2020 3:04 PM PDTTelephone Encounter - Bridgette Santizo - 02/01/2020 10:56 AM PDTPt lvm 01/31 at 10:3 4 AM Said he did not understand the last VM that was left with him about Kadlec. Seeks call back . elephone Encounter - Allyson Diehl RN - 01/30/2020 9:57 [facility], they said they have a referra l from PCP Dr Pierre. Let them know we are wanting him to have procedures, they said Nishant allred just needs to call their office and they can schedule him (for office visit first, then pr ocedures). [facility] for Amilcar to call [facility] (phone # provided) to get scheduled, asked for return c all if he is having worsened symptoms, will want to review GI medications he is currently julius yen. elephone Encou nter - Allyson Diehl RN - 01/23/2020 2:11 PM PSTSpoke with GI procedure care team coordinator scheduler Leela brown here at [facility], who has Amilcar on the line. She offered him procedures next week, but he feels he won't be able to arrange transportation and the trip to [place]. I asked if there could be another date to offer him in the next month. It now sounds like Amilcar won't be able to make the trip to [facility], and wants to schedule at [facility]. She conveyed the message that we are worried about his bleeding and want him seen soon er than later, and I'm worried his local plans will fall through again. He elects to proceed with local procedures. Faxed referral for colo and capsule to [facility] (face sheet, office visit note, labs a nd TE with bleeding symptoms). 2 :26 PM PSTTelephone Encounter - Allyson Diehl RN - 01/22/2020 2:45 PM PSTCalled [facility] in [place] (where Dr. French's office had told Amilcar they would send his referral ) - they are accepting referrals. He would need to be seen in clinic first before procedures are scheduled. She says after medical review they are scheduling out a few weeks for new pa tient appointments, and 1 month out for procedures. f#[phone] Rios, would like to plan colo/capsule here at [facility] to get it done brian ner than local timeframe. Attempted to speak with Amilcar to confirm plan, voicemail not set up . Will call back soon. P STTelephone Encounter - Allyson Diehl RN - 01/22/2020 1:04 PM PSTSpoke with Amilcar, he t ells me his local hospital cancelled his colonoscopy/capsule the night before due to concern s of COVID19 virus. He had finished the bowel prep right when he got the call that his proce dure was cancelled. He says the hospital is cancelling elective procedures currently due to the outbreak. He says his friend's is a nurse and she tested positive for COVID19. His GI symptoms continue, with rectal bleeding at times. He would prefer to have EGD/capsule at [facility], he said he called his PCP Dr. Deirdre conway's office and asked if we could have them cosign on the orders. If that doesn't work, he's okay to come to [facility]. He knows it would be a 2 day trip, and his girlfriend would come with him, and he would need to bring his dogs as well. Let him know I would check with local place, otherwise will set something up at [facility].Electr onically signed by Allyson Diehl RN at 01/22/2020 4:19 PM PSTTelephone Encounter - Bridgette Kinsey - 01/22/2020 9:19 AM PSTPt lvm 3 at 8:40 AM Said he needed call back from Dr. Rios's RN today, was schedueld for coloscopy at [facility]. They called him at 10:00 PM last night and cancelled. Pt says he is never going back t here again and needs to come up with a plan. Seeks call back. elephone Encounter - Allyson Diehl RN - 01/19/2020 10: 39 AM PSTSpoke with Amilcar to follow up on symptoms from earlier this week. Currently he is not having any abdominal pain. He was having bad cramping pain, curling up on the bed and using heating pad helped a littl e bit. He also has neck/back pain from previous surgeries, he is going to see a local pain managem ent provider next week to discuss going back on pain medications. He discussed with PCP, who thinks his bleeding could be from hemorrhoids. Dicussed that [facility] oming colonoscopy will be able to evaluate internal and external hemorrhoids. He says a similar illness happened to him in 2001 and he recently found the records for thi s, he will send to us. He also reports he has gained weight, from 217lb to 280lb. He says it's "because I'm a good cook." He avoids greasy foods, as those make his diarrhea worse. Will plan to check in with him after we have colo/capsule results, hopefully next week.Elec tronically signed by Allyson Diehl RN at 01/19/2020 10:49 AM PSTTelephone Encounter - Allyson Velazquez RN - 01/15/2020 2:22 PM PSTThis plan is consistent with our last conversat ion, will call to connect later this week. Okay to lync me if he calls back in the meantime so we can connect. e tawannahodenice Encounter - Bridgette Santizo - 01/15/2020 2:15 PM PSTPt lvm 01/15 at 1:24 PM Said he is in the works of getting set-up for a visit with pain clinic, PCP office is [facility]. Pt said he is still having pain, diarrhea and bleeding and needs something for the pain. Seeks call back. elephone En counter - Brittany Sow MA - 01/05/2020 4:26 PM PSTED notes received and uploaded to luther bashir's chart. elephone Encounter - Allyson Diehl RN - 01/05/2020 2:51 PM PSTSpoke with Amilcar about current sy mptoms and next steps. He reports increased stomach cramps and blood/mucous stool than his baseline. He says there is mucous mixed in with the blood that runs down his leg if he strains while standing up to pee. He feels more bloated with gas than his baseline. He called the pain clinic to help with his pain management - he says he's thinking about go ing back on pain medicines. He endorses he is taking antidiarrheal medication regimen we have prescribed at maximum dos es. He feels he is okay to be at home at this time. Let him know we are requesting recent ED records. He says his blood count was normal when corie escobar checked it there. His colo/capsule appointment is scheduled 3/ locally - about 2 weeks away. He wants to yash p this appointment. After that he'd like a follow up in clinic with Dr. Rios to review. Let him know I'd update Dr. Rios. elephone Encounter - Brittany Sow MA - 01/05/2020 9:11 AM PSTRecords request for [facility] [phone] signed by Brittany Sow MA at 01/05/2020 9:11 AM PST Telephone Encounter - Allyson Diehl RN - 01/04/2020 4:33 PM PSTHe is not scheduled for colonoscopy and capsule endoscopy for 1 month locally. Will ask ANUSHKA to obtain latest ED records - specifically labs for blood count. elephone Encounter - Liliana Nichols - 01/04/2020 4:23 PM PSTFred calling regarding symptoms. Please call [phone] Ok to [facility] Says he went to the emergency and confirmed the blood was coming from the rectum but told h im he needs to talk to his GI. Pt has rectal bleeding, blood in stool, blood dripping on the floor from rectum, says blood comes out when sneezes that started about a month ago. Has patient had Fever? NO Has patient had Nausea? yes Has patient had Vomiting? No Is this new or a change for you? Yes Is this symptom causing you pain?Yes "my stomach hurts" 05/31 Routing as high priority. Advised caller that they will receive a call back from RN or prov ider. Caller understands and is agreeable to this. documented in this encoun ter Plan of Treatment + + +--------+ + [...] anus | + + documented in this encounter
--- OUTSIDE RECORDS SUMMARY | ~2020-08-06 | XMS | Encounter Summary ---
Demographics + + + | Address | [address] | | | [place] [address] | + + + | Home Phone [...] [facility] | | [...] + +------+ + | Care Event Marketing Intern Name | Role | Phone | + +------+ + | Kirk French MD | PCP | | + +------+ + Encounter Details +--------+ + + + + | Date | Type | Department | Care Team | Description | +--------+ + + + + | 08/29/ | Hospital | [facility] | [place] | DVT (deep venous | | 2015 | Encounter | [facility] | PARISA [place] [address] | thrombosis), | | | | [address] [place] | [place], | bilateral (HCC) | | | | [place], [place] | [place] [address] | | | | | [address] | [phone] | | | | | [phone] | | | +--------+ + + + [...] + + + +---------+ + + | Kenyon-3 Fatty | CAPS, one capsule by | [...] by mouth. | | 0 | | 08/25/202 | | Products (OSTEO | Takes 2 [...] | | | | | | | #[id number], exp 07/2016 | | | | | [...] | Monitor | | MD [address] | Interrogation | | | | | [place], | (Primary Dx); | | | | | [place] [address] | Pacemaker; | | | | | [phone] | Sinoatrial node | | | | | | dysfunction ([facility]) | | | | | | with symptomatic | | | | | | bradycardia | +--------+ + + + + | 08/21/ | Implant | Cardiology | Daljit Singletary | Remote Device | | 2019 | Monitor | | MD [address] | Interrogation | | | | | [place], | (Primary Dx); | | | | | [place] [address] | Pacemaker; | | | | | [phone] | Sinoatrial node | | | | | | dysfunction (HCC) | | | | | | with symptomatic | | | | | | bradycardia | +--------+ + + + + | 08/21/ | Implant | Cardiology | Daljit Singletary, | Remote Device | | 2019 | Monitor | | MD [address] | Interrogation | | | | | [place], | (Primary Dx); | | | | | [place] [address] | Pacemaker; | | | | | [phone] | Sinoatrial node | | | | | | dysfunction (HCC) | | | | | | with symptomatic | | | | | | bradycardia | +--------+ + + + + | 08/21/ | Implant | Cardiology | Daljit Singletary, | Remote Device | | 2019 | Monitor | | MD [address] | Interrogation | | | | | [place], | (Primary Dx); | | | | | [place] [address] | Pacemaker; | | | | | [phone] | Sinoatrial node | | | | | | dysfunction (HCC) | | | | | | with symptomatic | | | | | | bradycardia | +--------+ + + + + | 08/21/ | Implant | Cardiology | Daljit Singletary, | Remote Device | | 2019 | Monitor | | MD [address] [place] | Interrogation | | | | | [place], | (Primary Dx); | | | | | [place] [address] | Pacemaker; | | | | | [phone] | Sinoatrial node | | | | [...] W | | | | | | [place], | | | | | | [place] [address] | | | | | | [phone] | | | | | | | [...] the groin through the popliteal fossa | [facility] | | in both lower [...] conveyed to the ordering provider, by the multimedia engineer, | | | immediately following the exam. [...] to the ordering provider, by the | |multimedia engineer, immediately following the exam. | | | | | |Dictated and Signed by: Emmanuel Gibbons MD | | Electronically signed: 08/29/2015 3:25 PM | + + + + + + + | Performing | Address | City/State/Zipcode | Phone Number | | Organization | | | | + + + + + | [facility] | [address] | [place], [place] | [phone] | | [facility] | | [address] | | | - IMAGING | | | | + + + + + documented in this encounter Visit Diagnoses + + | Diagnosis | + + | DVT (deep venous thrombosis), bilateral | + + | Remote Device Interrogation [...]
--- OUTSIDE RECORDS SUMMARY | ~2020-08-06 | XMS | Encounter Summary ---
Demographics + + + | Address | [address] | | | [place] [address] | + + + | Home Phone [...] Providers + +------+ + | Care Flight Instructor Name | Role | Phone | [...] | Radiology | Diagnoses | Stanley, | Haileym Nuclear | | | | | Other chest | Geri, CUSTOM SEAMSTRESS | Medicine | | | | | pain | [address] | [address] | | | | | Procedures | [place] | [place], | | | | | [place] Nuclear | [place], [place] | [place] | | | | | Stress Test | [address] | [address] | | | | | (Vasodilator | Phone: | Phone: | | | | | ) CHG | [phone] | [phone] | | | | | MYOCARDIAL | Fax: | Fax: | | | | | SPECT | [phone] | [phone] | | | | | MULTIPLE | [...] 2012 | | CARDIOLOGY [address] | CUSTOM SEAMSTRESS [address] | interactions, chest | | | | [address] [place], | [place], [place] | pain) | | | | [place] [address] | [address] | | | | | [phone] | | | +--------+ + + + [...] Pruitt RN 10/17/2013 17:15 elephone Encounter - H Gonzalo archibalda, [facility] - 10/17/2013 12:54 PM PSTAmy, I think [...] to his symptoms. He was evaluated in [place] at [facility] with Dr. Qureshi in electrophysiology, and is [...] advised that he can not drive to [place] in his condition an d he "won't go to the ER in [place]". I strongly advised that our recommendation would [...] | Monitor | | MD [address] | Interrogation | | | | | [place], | (Primary Dx); | | | | | [place] [address] | Pacemaker; | | | | | [phone] | Sinoatrial node | | | | | | dysfunction (HCC) | | | | | | with symptomatic | | | | | | bradycardia | +--------+ + + + + | 08/21/ | Implant | Cardiology | Daljit Singletary, | Remote Device | | 2019 | Monitor | | MD [address] | Interrogation | | | | | [place], | (Primary Dx); | | | | | [place] [address] | Pacemaker; | | | | | [phone] | Sinoatrial node | | | | | | dysfunction (HCC) | | | | | | with symptomatic | | | | | | bradycardia | +--------+ + + + + | 08/21/ | Implant | Cardiology | Daljit Singletary, | Remote Device | | 2019 | Monitor | | MD [address] | Interrogation | | | | | [place], | (Primary Dx); | | | | | [place] [address] | Pacemaker; | | | | | [phone] | Sinoatrial node | | | | | | dysfunction (HCC) | | | | | | with symptomatic | | | | | | bradycardia | +--------+ + + + + | 08/21/ | Implant | Cardiology | Daljit Singletary, | Remote Device | | 2019 | Monitor | | MD [address] | Interrogation | | | | | [place], | (Primary Dx); | | | | | [place] [address] | Pacemaker; | | | | | [phone] | Sinoatrial node | | | | | | dysfunction (HCC) | | | | | | with symptomatic | | | | | | bradycardia | +--------+ + + + + | 08/21/ | Implant | Cardiology | Daljit Singletary, | Remote Device | | 2019 | Monitor | | MD [address] | Interrogation | | | | | [place], | (Primary Dx); | | | | | [place] [address] | Pacemaker; | | | | | [phone] | Sinoatrial node | | | | [...] | | | | | | [place] [address] | | | | | | [phone] | | | | | | | | +--------+ + + + + documented as of this encounter Results [place] Nuclear Stress Test (Vasodilator) (12/07/2013 7:01 AM PST) + + | Specimen | + + | | + + + + + | Narrative | Performed At | + + + | [facility] | [place] | | Department [address] [facility] [place] | [facility] | | [ rep ct [address]] [ rep ct [facility] | | st zip] Signed | - IMAGING | | | | | Patient Name: MOE GAY | | | Physician: JACKLYN : 1960 Age: 53 Sex: M Unit | | | #: [id number] Exam Date: 12/06/13 Location: | | | [facility] Report #: [id number] Page: | | | %(RAD)RES..mtdd.print.filter("pg") of %(RAD) | | | RES..mtdd.print.filter("tpg") | | | | | | Accession Number: [id number] | | | PERSANTINE SESTAMIBI STRESS TEST, [...] Transcribed Date/Time: 12/07/2013 08:18 | | | Body Bumper: <<Signature on File>> | | | | | | Daljit Singletary MD [facility] FAS12/07/13 1321 <Electronically signed | | | by Daljit Singletary MD, [facility], FAC, FASE, FASNE> Daljit | | | MD [employer] [facility] 12/07/13 0701 Body Bumper: [employer] | | | Oygxydzmpkfxa74/16/14 0818 PARISA Garcia | | + + + + + + + + | Performing | Address | City/State/Zipcode | Phone Number | | Organization | | | | + + + + + | [facility] | [address] | [place] | [phone] | | [facility] | | [address] | | | - IMAGING | | | | + + + + + documented in this encounter Visit Diagnoses + + | Diagnosis | + + | Other chest pain - Primary | + + | Remote [...]
--- OUTSIDE RECORDS SUMMARY | ~2020-08-06 | XMS | Encounter Summary ---
Demographics + + + | Address | [address] | | | [place] [address] | + + + | Home Phone [...] Team Providers + +------+ + | Care Turret Press Operator Name | Role | Phone [...] [address] | | | | | Cyril | [place], | [address] | | | | | aortic | Janeen, SURFACE MINER | [place], | | | | | aneurysm | [address] | [place] [address] | | | | | (HCC) | [address] | Phone: | | | | | Abdominal | [place], | [phone] | | | | | aortic | [place] | Fax: | | | | | aneurysm | [address] | [phone] | | | | | (AAA) | Phone: | | | | | | without | [phone] | | | | | | rupture | Fax: | | | | | | (HCC) | [phone] | | | | | | Procedures | | | | | | | CT Angiogram | | | | | | | Chest | | | | | | | Abdomen | | | | | | | Pelvis | | | +--------+--------+ + + + [...] | unspecified | MD Martell | [address] | | | | | type ER | [address] | [address] | | | | | FUP | [place] | [place], | | | | | Procedures | [place], [place] | [place] [address] | | | | | FUP - SUW & | [address] | Phone: | | | | | MISHA PT, LAST | Phone: | [phone] | | | | | SEEN | [phone] | Fax: | | | | | 08-24-18 | Fax: | [phone] | | | | | | [phone] | | +--------+ + + + + + Encounter Details +--------+---------+ + + + | Date | Type | Department | Care Team | Description | +--------+---------+ + + + | 01/11/ | Office | [facility] | [place], | Coronary artery | | 2019 | Visit | CARDIOLOGY [address] | PARISA Vernon [address] | disease involving | | | | [place], | [place], | [place] coronary | | | | [place] [address] | [place] [address] | artery of [place] | | | | [phone] | [phone] | heart without angina | | | [...] of this encounter Patient Instructions Patient Instructions Jennifer February Ronald, Substance Abuse Services Director - 01/11/2019 12:45 PM PST 1. You [...] Check-in time: 1. Check in at the [facility]. 2. Do not [...] procedure. 6. Make sure you have a front loader residential driver to take you home. Your front loader residential driver will also need to sign you [...] hospital line at and ask for nursing wastewater supervisor t o let them know you are cancelling . Blood test: Non-fasting Date Due: same day as CTA Where to go for labs: [facility]- [facility]. CTA of Chest and Abdomen: Date: Check-In [...] of non-critical coronary artery d isease involving [place] coronary artery of [place] heart without angina pectoris, essential h ypertension, [...] Preventative health care Coronary artery disease involving [place] coronary artery of [place] heart without angina pectoris Cannabis abuse, daily [...] 3RD DOSE, CALL 911 100 tablet 3 [place]-3 Fatty Acids (SALMON OIL-1000 PO) CAPS, one capsule by mouth daily twice daily ondansetron (ZOFRAN ODT) 4 mg disintegrating tablet Take 4 mg by mouth. ONE TOUCH DELICA LANCETS [facility] [...] was found Confirmed by ANGELA MARADIAGA MD ([id number]) on 01/03/2019 8:10:39 PM LAB RESULTS reviewed during visit today primarily from [facility]: LIPID Lab Results Component Value Date [...] the HPI. RESULTS- I reviewed reports from [facility]: Xr Chest Ap Portable Result Date: [...] ASSESSMENT: 1. Non-critical Coronary artery disease involving [place] coronary artery of [place] heart [facility] angina pectoris: A. Normal exercise sestamibi [...] [facility] on [facility]. Patient had spontaneous PVC's from [...] go back in 3 days t o [place] for an attempt of ablation under general [...] he has any further problems Christine Clemente Substance Abuse Services Director am acting as a scribe on behalf of, and in the pres ence of PARISA Lomas. - Reji Newman 01/11/2019 13:46 Janeen Clemente ARNP, personally performed the services described in this documentati on, as scribed in my presence and it is both accurate and complete. -PARISA Lomas 01/11/2019 Portions of this chart may have been created with [employer] voice recognition software. Occasi onal wrong-word or sound-alike substitutions may have occurred due to the inherent granger itations of voice recognition software. Please read the chart carefully and recognize, using context, where these substitutions have occurred. documented in this encounter Miscellaneous Notes Addendum Note - Darlene Pate RN - 01/11/2019 12:45 PM PST Addended by: DARLENE PATE on: 01/12/2019 08:48 Modules accepted: Orders documented in this encounter [...] | | | | | [address] [place], | (Primary Dx); | | | | | [place] [address] | Pacemaker; | | | | | [phone] | Sinoatrial node | | | | | | dysfunction (HCC) | | | | | | with symptomatic | | | | | | bradycardia | +--------+ + + + + | 08/21/ | Implant | Cardiology | Daljit Singletary, | Remote Device | | 2019 | Monitor | | MD [address] | Interrogation | | | | | [place], | (Primary Dx); | | | | | [place] [address] | Pacemaker; | | | | | [phone] | Sinoatrial node | | | | | | dysfunction (HCC) | | | | | | with symptomatic | | | | | | bradycardia | +--------+ + + + + | 08/21/ | Implant | Cardiology | Daljit Singletary, | Remote Device | | 2019 | Monitor | | MD [address] | Interrogation | | | | | [place], | (Primary Dx); | | | | | [place] [address] | Pacemaker; | | | | | [phone] | Sinoatrial node | | | | | | dysfunction (HCC) | | | | | | with symptomatic | | | | | | bradycardia | +--------+ + + + + | 08/21/ | Implant | Cardiology | Shaista Singletarypawanotto, | Remote Device | | 2020 | Monitor | | MD [address] | Interrogation | | | | | [place], | (Primary Dx); | | | | | [place] [address] | Pacemaker; | | | | | [phone] | Sinoatrial node | | | | | | dysfunction (HCC) | | | | | | with symptomatic | | | | | | bradycardia | +--------+ + + + + | 08/21/ | Implant | Cardiology | Daljit Singletary, | Remote Device | | 2019 | Monitor | | MD [address] | Interrogation | | | | | [place], | (Primary Dx); | | | | | [place] [address] | Pacemaker; | | | | | [phone] | Sinoatrial node | | | | [...] W | | | | | | [place], | | | | | | [place] [address] | | | | | | [phone] | | | | | | | [...] + + | Coronary artery disease involving [place] coronary artery of [place] heart without | | angina pectoris - Primary | + + | Essential hypertension Unspecified essential hypertension | + + | Symptomatic PVCs Other premature beats | + + | Ascending thoracic aortic aneurysm (HCC) Thoracic aneurysm without mention of rupture | + + | Abdominal aortic aneurysm (AAA) without rupture (HCC) | + + | Remote Device Interrogation [...]
--- OUTSIDE RECORDS SUMMARY | ~2020-08-06 | XMS | Encounter Summary ---
Demographics + + + | Address | [address] | | | [place] [address] | + + + | Home Phone [...] Providers + +------+ + | Care Crusher Assembler Name | Role | Phone | [...] | | | Left | | Matthew Stacy, | | | | | ureteral | | [address] | | | | | calculus | | [address] | | | | | Procedures | | [place], | | | | | [place] | | [place] [address] | | | | | CYSTO/URETER | | Phone: | | | | | O | | | | | | | W/LITHOTRIPS | | Fax: | | | | | Y &INDWELL [...] | | | | | [address] | [place], [place] | | | | | [place], [place] | [address] | | | | | [address] | | | | | | [phone] | | | +--------+ + + + [...] +----+---+ + + | | 0 | Peetz | | | | 8 | 43-degrees | | | | 2 | | | | | 7 | | | +----+---+ + + | | 0 | First | | | | 8 | Inc/Proc St | | | | 2 | | | | | 8 | | | +----+---+ + + | | 0 | Peetz off | | | | 9 | [...] + + + | Nephro | 04/13/19; 939; left flank; other | 04/13/19939 by | [...] 04/13/19 121 by | | eral | [id number] catheter system; | Dominga Steen RN | [...] EVALUATION Moe Sanchez 59 y.o. male 1960 [id number] Procedure(s) Cystoscopy, Left ureteroscopy with laser lithotripsy, [...] signed by Jay Benjamin MD 04/13/2019 12:03 [facility] signed by Jay Benjamin MD at 2018 [...] EVALUATION Moe Sanchez 59 y.o. male 1960 [id number] Procedure(s): Cystoscopy, Left ureteroscopy with laser lithotripsy, [...] hypertension, (+) cor onary artery disease of [place] artery. . Pulmonary (+) sleep apnea. (+) [...] Dx); | | | | | [place] [address] | Pacemaker; | | | | | [phone] | Sinoatrial node | | | | | | dysfunction (HCC) | | | | | | with symptomatic | | | | | | bradycardia | +--------+ + + + + | 08/21/ | Implant | Cardiology | Daljit Singletary, | Remote Device | | 2019 | Monitor | | MD [address] | Interrogation | | | | | [place], | (Primary Dx); | | | | | [place] [address] | Pacemaker; | | | | | [phone] | Sinoatrial node | | | | | | dysfunction (HCC) | | | | | | with symptomatic | | | | | | bradycardia | +--------+ + + + + | 08/21/ | Implant | Cardiology | Daljit Singletary, | Remote Device | | 2019 | Monitor | | MD [address] | Interrogation | | | | | [place], | (Primary Dx); | | | | | [place] [address] | Pacemaker; | | | | | [phone] | Sinoatrial node | | | | | | dysfunction (HCC) | | | | | | with symptomatic | | | | | | bradycardia | +--------+ + + + + | 08/21/ | Implant | Cardiology | Daljit Singletary, | Remote Device | | 2019 | Monitor | | MD [address] | Interrogation | | | | | [place], | (Primary Dx); | | | | | [place] [address] | Pacemaker; | | | | | [phone] | Sinoatrial node | | | | | | dysfunction (HCC) | | | | | | with symptomatic | | | | | | bradycardia | +--------+ + + + + | 08/21/ | Implant | Cardiology | Daljit Singletary, | Remote Device | | 2019 | Monitor | | MD [address] | Interrogation | | | | | [place], | (Primary Dx); | | | | | [place] [address] | Pacemaker; | | | | | [phone] | Sinoatrial node | | | | | | dysfunction (HCC) | | | | | | with symptomatic | | | | | | bradycardia | +--------+ + + + + | 10/23/ | Procedure | Cardiology | | | | 2019 | visit | | | | +--------+ + + + + | 10/23/ | Office | Cardiology | iSlvia | | | 2019 | Visit | | Janeen, MANAGER MULTICULTURAL [address] | | | | | | [place], | | | | | | [place] [address] | | | | | | [phone] | | | | | | | [...] and carbon dioxide detectionPerforming | | provider: Allen Keenease see intraoperative grid for any additional medication [...] 8:23 | | | | | Starting [facility] 04/13/19 at 0823, | | AM PDT | | | | | Anesthesia Intra-op | | | | | | + +--------+ +-------+------+------+ +---+---+ | | | +---+---+ + +-------+ +--------+---+---+ | HYDROmorphone (DILAUDID) 2 | Given | 04/13/20 | 0.4 mg | | | | mg/mL injection Intravenous, | | 19 8:21 | | | | | PRN, Starting [facility] 04/13/19 at | | AM PDT | [...]
--- OUTSIDE RECORDS SUMMARY | ~2020-08-06 | XMS | Encounter Summary ---
Demographics + + + | Address | [address] | | | [place] [address] | + + + | Home Phone [...] Team Providers + +------+ + | Care Welt Stitch Cleaner Name | Role | Phone | [...] + + | 06/06/ | [facility] | [facility] | [place], | Essential | | 2019 | Visit | CARDIOLOGY [address] | PARISA Vernon [address] | hypertension | | | | [place], | [place], | (Primary Dx); | | | | [place] [address] | [place] [address] | Sinoatrial node | | | | [phone] | [phone] | dysfunction (HCC) | | | | | | with symptomatic | | | | | | bradycardia; | | | | | | Symptomatic PVCs; | | | | | | Tachycardia; | | | | | | Coronary artery | | | | | | disease involving | | | | | | qu[place] coronary | | | | | | artery of [place] | | | | | | heart [...] encounter Patient Instructions Patient Instructions Julia Allen, Beeswax Bleacher - 06/06/2019 2:15 PM PDT1. Take a [...] of -critical coronary artery dise ase involving [place] coronary artery of [place] heart without angina pectoris, essential hype rtension, [...] was seen in the emergency department at [facility] in [place] due to chest pain, no medication changes at that time. On 06/02/2019 [facility], irregular heart [...] Preventative health care Coronary artery disease involving [place] coronary artery of [place] heart without angina pectoris Cannabis abuse, daily [...] BY MOUTH EVERY DAY 90 tablet 3 [facility] [employer] (OSTEO BI-FLEX/5-LOXIN ADVANCED PO) Take [...] 3RD DOSE, CALL 911 100 tablet 3 [place]-3 Fatty Acids (SALMON OIL-1000 PO) CAPS, one capsule by mouth daily twice daily ondansetron (ZOFRAN ODT) 4 mg disintegrating tablet Take 4 mg by mouth every 8 hours as needed for Nausea. ONE TOUCH DELICA LANCETS [facility] [...] RESULTS reviewed during visit today primarily from [facility]: LIPID Lab Results Component Value [...] BNP 48 06/02/2019 I reviewed records from [facility] for emergency department visit o n 06/02/2019 which is summarized in the HPI. RESULTS- I reviewed reports from [facility]: Ct Abdomen Pelvis W Contrast [...] 6:54 PM HISTORY: dyspnea Comparison: 01/02/2019 T SHIELANIQUE: A single portable view of the chest. [...] ASSESSMENT: 1. Non-critical Coronary artery disease involving [place] coronary artery of [place] heart [facility] angina pectoris: A.Normal exercise sestamibi [...] cannot completely be ru led out. D. [facility] 12/25/13, shows non critical coronary artery disease, [...] performed by Dr Juan Diego Gambino at [facility] on 01/30/2013.Patient had spontaneous PVC'sfr [...] to go back in 3 days to [place] for an attempt of ablation under [...] visit, or sooner with concerns. Julia Clemente, Beeswax Bleacher am acting as a scribe on behalf of, and in the presenc e of PARISA Lomas. - Julia Allen, Beeswax Bleacher 06/06/2019 15:10 Janeen Clemente ARNP, personally performed the services described in this documentati on, as scribed in my presence and it is both accurate and complete. -PARISA Lomas 06/06/2019 Portions of this chart may have been created with [employer] voice recognition software. Occasi onal wrong-word [...] 2019 | Monitor | | [address] | Interrogation | | | | | [place], | (Primary Dx); | | | | | [place] [address] | Pacemaker; | | | | | [phone] | Sinoatrial node | | | | | | dysfunction (HCC) | | | | | | with symptomatic | | | | | | bradycardia | +--------+ + + + + | 08/21/ | Implant | Cardiology | Sydni Singletary, | Remote Device | | 2019 | Monitor | | MD [address] [place] | Interrogation | | | | | [place], | (Primary Dx); | | | | | [place] [address] | Pacemaker; | | | | | [phone] | Sinoatrial node | | | | | | dysfunction (HCC) | | | | | | with symptomatic | | | | | | bradycardia | +--------+ + + + + | 08/21/ | Implant | Cardiology | Sydni Singletary, | Remote Device | | 2019 | Monitor | | MD [address] [place] | Interrogation | | | | | [place], | (Primary Dx); | | | | | [place] [address] | Pacemaker; | | | | | [phone] | Sinoatrial node | | | | | | dysfunction (HCC) | | | | | | with symptomatic | | | | | | bradycardia | +--------+ + + + + | 08/21/ | Implant | Cardiology | Gemini Rashadotto, | Remote Device | | 2020 | Monitor | | MD [address] [place] | Interrogation | | | | | [place], | (Primary Dx); | | | | | [place] [address] | Pacemaker; | | | | | [phone] | Sinoatrial node | | | | | | dysfunction (HCC) | | | | | | with symptomatic | | | | | | bradycardia | +--------+ + + + + | 08/21/ | Implant | Cardiology | Sydni Singletary, | Remote Device | | 2019 | Monitor | | MD [address] [place] | Interrogation | | | | | [place], | (Primary Dx); | | | | | [place] [address] | Pacemaker; | | | | | [phone] | Sinoatrial node | | | | [...] W | | | | | | [place], | | | | | | [place] [address] | | | | | | [phone] | | | | | | | [...] MD | | | | | | ([id number]) on 06/06/2019 | | | | | [...] + + | Coronary artery disease involving quileute coronary artery of quileute heart without | | angina pectoris | [...]
--- OUTSIDE RECORDS SUMMARY | ~2020-08-06 | XMS | Encounter Summary ---
Demographics + + + | Address | [address] [place] [address] [address] | | | [place] [address] | + + + | Home Phone [...] [place] | | | | | [address] | | + + + + + Care Team Providers + +------+ + | Care Service Planner Name | Role | Phone | [...] | | | | | unspecified | [address] | | | | | | type Rectal | Ave | | | | | | bleeding | [facility] [place] | | | | | | Procedures | [address] | | | | | | CONSULT TO | Phone: | | | | | | GASTROENTERO | [phone] | | | | | | LOGY | Fax: | | | | | | | [phone] | | + +--------+ + + + [...] | | | | | Procedures | [place], [place] | [facility] and | | | | | CONSULT TO | [address] | Healing, | | | | | ENDOSCOPY | Phone: | Building 2 | | | | | UNIT: SM | [phone] | [place], [place] | | | | | B[address] | Fax: | [address] | | | | | [address] | [phone] | Phone: | | | | | ENDOSCOPY | | [phone] | | | | | | | Fax: | | | | | | | [phone] | + +--------+ + + + + [...] | | | | | bleeding | [place], [place] | [facility] and | | | | | Procedures | [address] | Healing, | | | | | CONSULT TO | Phone: | Building 2 | | | | | ENDOSCOPY | [phone] | [place], [place] | | | | | UNIT: | Fax: | [address] | | | | | COLONOSCOPY | [phone] | Phone: | | | | | | | [phone] | | | | | | | Fax: | | | | | | | [phone] | +--------+--------+ + + + + Reason [...] - [facility] [address] | MD [address] | | | | | [address] [place] | [facility] [place] | | | | | for Health and | [address] | | | | | Healing, Building [address] | [phone] | | | | | [place], [place] | | | | | | [address] | | | | | | [phone] | | | +--------+ + + + [...] Telephone Encounter - Allyson Diehl RN - 02/01/2020 2:57 PM PDTLVM with phone number below, requesting he call them to schedule his procedures. [facility] phone [phone] signed by Allyson Diehl RN at 02/01/2020 3:04 PM PDTTelephone Encounter - Bridgette Santizo - 02/01/2020 10:56 AM PDTPt lvm 01/31 at 10:3 4 AM Said he did not understand the last VM that was left with him about Kadlec. Seeks call back . elephone Encounter - Allyson Diehl RN - 01/30/2020 9:[address] [facility], they said they have a referra l from PCP Dr Pierre. Let them know we are wanting him to have procedures, they said Nishant allred just needs to call their office and they can schedule him (for office visit first, then pr ocedures). [facility] for Amilcar to call [facility] (phone # provided) to get scheduled, asked for return c all if he is having worsened symptoms, will want to review GI medications he is currently julius yen. elephone Encou nter - Allyson Diehl RN - 01/23/2020 2:11 PM PSTSpoke with GI procedure dental scheduler Leela brown here at [facility], who has Amilcar on the line. She offered him procedures next week, but he feels he won't be able to arrange transportation and the trip to [place]. I asked if there could be another date to offer him in the next month. It now sounds like Amilcar won't be able to make the trip to [facility], and wants to schedule at [facility]. She conveyed the message that we are worried about his bleeding and want him seen soon er than later, and I'm worried his local plans will fall through again. He elects to proceed with local procedures. Faxed referral for colo and capsule to [facility] (face sheet, office visit note, labs a nd TE with bleeding symptoms). 2 :26 PM PSTTelephone Encounter - Allyson Diehl RN - 01/22/2020 2:[address] [facility] in [place] (where Dr. French's office had told Amilcar they would send his referral ) - they are accepting referrals. He would need to be seen in clinic first before procedures are scheduled. She says after medical review they are scheduling out a few weeks for new pa tient appointments, and 1 month out for procedures. f#[phone] Rios, would like to plan colo/capsule here at [facility] to get it done brian ner than [...] He would prefer to have EGD/capsule at [facility], he said he called his PCP Dr. Deirdre conway's office and asked if we could have them cosign on the orders. If that doesn't work, he's okay to come to [facility]. He knows it would be a 2 day trip, and his girlfriend would come with him, and he would need to bring his dogs as well. Let him know I would check with local place, otherwise will set something up at [facility].Electr onically signed by Allyson Diehl RN at 01/22/2020 4:19 PM PSTTelephone Encounter - Bridgette Kinsey - 01/22/2020 9:19 AM PSTPt lvm 3 at 8:40 AM Said he needed call back from Dr. Rios's RN today, was schedueld for coloscopy at [facility]. They called him at 10:00 PM [...] bleeding could be from hemorrhoids. Dicussed that [facility] will be able to evaluate [...] PSTRecords request for [facility] at [phone] signed by Brittany Sow MA at 01/05/2020 9:11 AM PST Telephone Encounter - Allyson Diehl RN - 01/04/2020 4:33 PM PSTHe is not scheduled for colonoscopy and capsule endoscopy for 1 month locally. Will ask ANUSHKA to obtain latest ED records - specifically labs for blood count. elephone Encounter - Liliana Nichols - 01/04/2020 4:23 PM PSTFred calling regarding symptoms. Please call [phone] Ok to [facility] Says he went to the emergency [...]
--- OUTSIDE RECORDS SUMMARY | ~2020-08-06 | XMS | Encounter Summary ---
Demographics + + + | Address | [address] | | | [place] [address] | + + + | Home Phone [...] Team Providers + +------+ + | Care Speedboat Operator Name | Role | Phone | [...] [address] | | | | | | [place], [place] | (Fax) | | | | | [address] | | | | | | [phone] | | | +--------+ + + + [...] | Monitor | | MD [address] | Interrogation | | | | | [place], | (Primary Dx); | | | | | [place] [address] | Pacemaker; | | | | | [phone] | Sinoatrial node | | | | | | dysfunction (HCC) | | | | | | with symptomatic | | | | | | bradycardia | +--------+ + + + + | 08/21/ | Implant | Cardiology | Daljit Singletary, | Remote Device | | 2019 | Monitor | | MD [address] | Interrogation | | | | | [place], | (Primary Dx); | | | | | [place] [address] | Pacemaker; | | | | | [phone] | Sinoatrial node | | | | | | dysfunction (HCC) | | | | | | with symptomatic | | | | | | bradycardia | +--------+ + + + + | 08/21/ | Implant | Cardiology | Daljit Singletary, | Remote Device | | 2019 | Monitor | | MD [address] | Interrogation | | | | | [place], | (Primary Dx); | | | | | [place] [address] | Pacemaker; | | | | | [phone] | Sinoatrial node | | | | | | dysfunction (HCC) | | | | | | with symptomatic | | | | | | bradycardia | +--------+ + + + + | 08/21/ | Implant | Cardiology | Daljit Singletary, | Remote Device | | 2019 | Monitor | | MD [address] | Interrogation | | | | | [place], | (Primary Dx); | | | | | [place] [address] | Pacemaker; | | | | | [phone] | Sinoatrial node | | | | | | dysfunction (HCC) | | | | | | with symptomatic | | | | | | bradycardia | +--------+ + + + + | 08/21/ | Implant | Cardiology | Daljit Singletary, | Remote Device | | 2020 | Monitor | | MD [address] | Interrogation | | | | | [place], | (Primary Dx); | | | | | [place] [address] | Pacemaker; | | | | | [phone] | Sinoatrial node | | | | [...] | | | | | | [place] [address] | | | | | | [phone] | | | | | | | | +--------+ + + + + documented as of this encounter Visit Diagnoses Not on filedocumented in this encounter"
--- OUTSIDE RECORDS SUMMARY | ~2020-08-06 | XMS | Encounter Summary ---
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 He went to [facility] at the end of for his symptoms [...] it. He is planning to travel to [place] in the ve ry near future for up to a month due to his [id number] having a significant stroke there MEDICAL, SURGICAL, [...] Preventative health care Coronary artery disease involving [place] coronary artery without angina pectoris Cannabis abuse, [...] by mouth Daily. 30 tabl et 6 Misc Natural Products (OSTEO BI-FLEX/5-LOXIN ADVANCED [...] 3rd dose, call 911 25 tablet 11 Roxana-3 Fatty Acids (SALMON OIL-1000 PO) CAPS, one [...] Daily. to reduce urinary frequenc y Lot #[id number], exp 07/2016 21 capsule 0 Specialty Vitamins [...] INTERROGATION REVIEWED BY: PARISA Velazquez DEVICE IDENTIFICATION: Blind Hanger: Medtronic. Leads: Right atrium and right ventricle (dual [...] arrhythmia performed by Dr. Gambino at [facility] on 01/30/2013. Patient had spontaneous PVCs [...] to go back in 3 days to [place] for an attempt of ablation under general [...] dizziness. He is in class I-II of [place] [employer] functional class. T here are [...] this chart may have been created with [employer] voice recognition software. Occasi onal wrong-word or sound-alike substitutions may have occurred due to the inherent granger itations of voice recognition software. Please read the chart carefully and recognize, using context, where these substitutions have occurred. documented in this e ncounter Procedure Notes Geri Angel ARNP - 06/26/2015 1:41 PM PDTAssociated Order(s): DEVICE INTERROGATIONProc edure(s): DEVICE INTERROGATIONPre-Procedure Diagnose(s): Sinoatrial node dysfunction (HCC)Fo rmatting of this note might be different from the original. DEVICE INTERROGATION DATE OF SERVICE: June 26, 2015 PATIENT NAME: Moe Sanchez DATE OF : 1960 INTERROGATION PERFORMED BY: PARISA Velazquez. INTERROGATION REVIEWED BY: PARISA Velazquez DEVICE IDENTIFICATION: Blind Hanger: [employer]. Leads: Right atrium and right ventricle (dual [...] Remote monitoring: None -prefers office follow up documented in this e ncounter Plan of Treatment +--------+ + + + + | Date | Type | Specialty | Care Team | Description | +--------+ + + + + | 08/21/ | Implant | Cardiology | Daljit Singletary, | Remote Device | | 2019 | Monitor | | MD Chiquis [address] [place] | Interrogation | | | | | [place], | (Primary Dx); | | | | | [place] [address] | Pacemaker; | | | | | [phone] | Sinoatrial node | | | | | | dysfunction (HCC) | | | | | | with symptomatic | | | | | | bradycardia | +--------+ + + + + | 08/21/ | Implant | Cardiology | Daljit Singletary, | Remote Device | | 2019 | Monitor | | MD [place] | Interrogation | | | | | [place], | (Primary Dx); | | | | | [place] [address] | Pacemaker; | | | | | [phone] | Sinoatrial node | | | | | | dysfunction (HCC) | | | | | | with symptomatic | | | | | | bradycardia | +--------+ + + + + | 08/21/ | Implant | Cardiology | Daljit Singletary, | Remote Device | | 2019 | Monitor | | MD [address] [place] | Interrogation | | | | | [place], | (Primary Dx); | | | | | [place] [address] | Pacemaker; | | | | | [phone] | Sinoatrial node | | | | | | dysfunction (HCC) | | | | | | with symptomatic | | | | | | bradycardia | +--------+ + + + + | 08/21/ | Implant | Cardiology | Daljit Singletary, | Remote Device | | 2019 | Monitor | | MD [address] [place] | Interrogation | | | | | [place], | (Primary Dx); | | | | | [place] [address] | Pacemaker; | | | | | [phone] | Sinoatrial node | | | | | | dysfunction (HCC) | | | | | | with symptomatic | | | | | | bradycardia | +--------+ + + + + | 08/21/ | Implant | Cardiology | Daljit Singletary, | Remote Device | | 2019 | Monitor | | MD [address] [place] | Interrogation | | | | | [place], | (Primary Dx); | | | | | [place] [address] | Pacemaker; | | | | | [phone] | Sinoatrial node | | | | [...] | | | | | | [place], | | | | | | [place] [address] | | | | | | [phone] | | | | | | | [...] PARISA Velazquez DEVICE IDENTIFICATION: | | | Blind Hanger: [employer]. Leads: Right atrium and right | | [...] + + | Coronary artery disease involving [place] coronary artery without angina pectoris - | | Primary | + + | SINUS BRADYCARDIA Sinoatrial node dysfunction | + + | Essential hypertension Unspecified essential hypertension | + + | Hyperlipidemia Other and unspecified hyperlipidemia | + + | Symptomatic PVCs Other premature beats | + + | Remote Device Interrogation [...]
--- OUTSIDE RECORDS SUMMARY | ~2020-08-06 | XMS | Encounter Summary ---
Demographics + + + | Address | [address] | | | [place] [address] | + + + | Home Phone [...] Team Providers + +------+ + | Care Curator Of Manuscripts Name | Role | Phone | + [...] + + | 06/02/ | [facility] | Martell Hart | Anxiety (Primary | | 2019 | | [facility] | Sanjay Palacios MD | Dx); Palpitations | | | | CENTER [address] | [address] | | | | | [place], [place] | [place] | | | | | [address] | [phone] | | | | | [phone] | | | +--------+ + + + [...] + + + +---------+ + + | Bridgewater-3 Fatty | CAPS, one capsule by | [...] | | | | | | | [place] coronary | | | | | | | artery of [place] | | | | | | | [...] documented as of this encounter ED Notes Tanmay Blanco RN - 06/02/2019 8:42 PM PDTPt discharged to home by self. Instructions given to pt both verbally and in writing. Pt sts understanding of hs instructions at time o f discharge arJason chun MD - 06/02/2019 8:24 PM PDTFormatting of this note might be different fr om the original. [facility] Moe Sanchez Emergency Department Encounter Note [address] [place] [id number] PCP:Kirk French MD [phone] eMERGENCY dEPARTMENT eNCOUnter CHIEF COMPLAINT Chief Complaint Patient presents with Chest Pain Irregular Heart Beat Shortness of Breath TRIAGE ED Triage Notes, ED Triage Notes Fela Ray RN 06/02/2019 18:42 Patient arrives with c/o heart fluttering really fast and then slowing down, intermittently , x 4 days. Feels sob and lightheaded when this happens. Also has chest pain when it happens . Has pacemaker. HPI Moe Sanchez is a 59 y.o. male who presents patient with ongoing palpitations. He feels his heart is going erratically. Is been going intermittently for the last 4 to 5 days. He feels shortness of breath and some lightheadedness. He is here for further evalua tion. He also states that he is under a lot of stress right now and under the pressure at h ome. He is here for further evaluation PAST MEDICAL HISTORY Past Medical History: Diagnosis [...] Medtronic Peptic ulcer disease Premature ventricular contraction [facility] 06/26/2013 LAST PSA:12/16/2010 RESULT:0.14 LAST COLONOSCOPY:02/05/2009 RESULTnormal exam Prostate troubles PUD Sinoatrial node dysfunction (HCC) SINUS BRADYCARDIA Sleep apnea Stroke (HCC) SUBSTANCE ABUSE, MULTIPLE Syncope 10/09/2010 Tachycardia Thoracic ascending aortic aneurysm (HCC) Thrombocytopenia (HCC) 08/26/2010 Tobacco user Tuberculosis Ulcerative colitis (HCC) Weight loss SURGICAL HISTORY Past Surgical History: Procedure Laterality Date ABDOMINAL ADHESION SURGERY ABLATION Bilateral 04/03/2013 x3 Laser APPENDECTOMY 2004 [place] CARDIAC CATHERIZATION 12/25/13 Left CARDIAC CATHERIZATION N/A 01/25/2019 Procedure: CV LHC; Surgeon: Daljit Singletary MD; Location: [facility] CV LAB CARDIAC CATHERIZATION N/A 01/25/2019 Procedure: CV Cor Angio; Surgeon: Daljit Singletary MD; Location: [facility] CV LAB COLONOSCOPY N/A 12/24/2017 Procedure: COLONOSCOPY; Surgeon: Emmanuel Daniel MD; Location: [facility] MEDICAL PROCEDURE UNIT COLONOSCOPY N/A 01/05/2019 Procedure: COLONOSCOPY; Surgeon: Emmanuel Daniel MD; Location: [facility] MEDICAL PROCEDURE UNIT EGD 12/24/2017 HARDWARE [...] Procedure: EGD; Surgeon: Emmanuel Daniel MD; Location: [facility] MEDICAL PROCEDURE UNIT UPPER GASTROINTESTINAL ENDOSCOPY N/A 01/05/2019 Procedure: EGD; Surgeon: Emmanuel Daniel MD; Location: [facility] MEDICAL PROCEDURE UNIT URETEROSCOPY Left 04/13/2019 Procedure: Cystoscopy, Left ureteroscopy with laser lithotripsy, Left ureteral stent place ment; Surgeon: Matthew Uriarte MD; Location: [facility] MAIN OR VASECTOMY 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 eluxadoline (VIBERZI) 100 mg tablet Take 1 tablet by mouth 2 times daily (with breakfas t & dinner). Glucose Blood (BLOOD GLUCOSE TEST STRIPS) STRP Test up to 1 times a day as needed ( One touch ) hyoscyamine (LEVSIN) 0.[address] 1 tablet under the tongue every 4 hours a s needed for Cramping, Diarrhea or GI Spasms. loperamide (IMODIUM A-D) 2 MG tablet Take [...] NO RELIEF AFTER 3RD DOSE, CALL 911 Bridge[place]-3 Fatty Acids (SALMON OIL-1000 PO) CAPS, one capsule by mouth daily twice daily ondansetron (ZOFRAN ODT) 4 mg disintegrating tablet Take 4 mg by mouth every 8 hours as needed for Nausea. ONE TOUCH DELICA LANCETS MISC Check glucose as needed for hypoglycemia oxyCODONE-acetaminophen [...] 2 times daily. ALLERGIES Allergies Allergen Reactions Prednisone Other (See [...] Morphine Itching Penicillins Rash Tramadol Hcl Itching FAMILY HISTORY Family History Problem Relation Age of Onset Heart disease Mother Stroke Mother Cancer Father colon,prostate Heart disease Father Heart attack Father Hypertension Father Stroke Father SOCIAL HISTORY Social History Socioeconomic History Marital status: Spouse name: Andreia Number of children: 2 Years of education: 12 Highest education level: Not on file Occupational History Occupation: disabled Employer: DISAB[employer] Tobacco Use Smoking status: Former Smoker Types: Cigars Last attempt to quit: 11/22/2012 Years since quittin.5 Smokeless tobacco: Never Used Tobacco comment: 1 [...] my me. PHYSICAL EXAM VITAL SIGNS: Temp: 37.4 C (99.3 F) Pulse: 74 Resp: 16 SpO2: 97 % BP: (!) 171/98 Constitutional: Well developed, Well nourished, Non-toxic appearance. Patient appears res tless and very anxious. HENT: Normocephalic, Atraumatic, Bilateral external ears normal, [...] No tenderness, No masses, No pulsatile masses. Musculoskeletal: Intact distal pulses, No edema, No tenderness, No cyanosis, No clubbing. Good range of motion in all major joints. No tenderness to palpation or major deformities no kevin. Back:- No tenderness. Neurologic: Alert & oriented x 3, Normal motor function, Normal sensory function, No focal deficits noted, no facial assymetry noted. Equal veterinary pathologist in all extremities EKG Interpretation Interpreted by emergency department physician Rhythm: normal sinus atrial paced Rate: 73 [place]: normal Ectopy: none Conduction: P wave normal, normal QRS ST Segments: normal no elevation, depression, or prolongation. T Waves: no acute change Q Waves: none RADIOLOGY Xr Chest Ap Portable Result Date: 06/02/2019 [...] MD Electronically s igned: 06/02/2019 8:05 PM LAB Labs Reviewed COMPREHENSIVE METABOLIC PANEL - Abnormal; Notable for the following components: Result Value AST 35 (*) Albumin/Globulin Ratio 2.0 (*) All other components within normal limits B TYPE NATRIURETIC PEPTIDE - Normal CBC WITH DIFFERENTIAL - Normal LIPASE - Normal PROTIME INR - Normal TROPONIN I - Normal ED COURSE & MEDICAL DECISION MAKING Pertinent Labs & Imaging studies reviewed. (See chart for details) Nursing notes reviewed. Patient with intermittent chest pain and palpitations. His troponin is negative here. He has no ectopy on the monitor or rhythm strip. His EKG is unremarkable. His troponins are n egative and his BNP is not elevated. Patient through further discussion does describe quite a bit of stress and anxiety. He is out of his clonazepam. I am giving him prescription fo r short amount of clonazepam and gave him some Ativan to go home with this evening. He is e ncouraged to follow-up with his primary care physician. He does not appear to be in acute d istress at this time. New Prescriptions CLONAZEPAM (KLONOPIN) 1 MG TABLET Take 1 tablet by mouth 3 times daily as needed for An xiety. Discharge Instructions Return for severe worsening palpitation shortness of breath or difficulty breathing. Pleas e follow-up with your primary care physician. FINAL IMPRESSION 1. Anxiety Acute 2. Palpitations Acute Portions of this chart may have been created with [employer] voice recognition software. Occasi onal wrong-word or sound-alike substitutions may have occurred due to the inherent granger itations of voice recognition software. Please read the chart carefully and recognize, using context, where these substitutions have occurred Martell Hart MD 06/02/192025 Fela Taylor RN - 06/02/2019 6:41 PM PDTPatient arrives with c/o heart fluttering really fast and then slowing down, intermittently, x 4 days. Feels sob and lightheaded when this happens . Also has chest pain when it happens. Has pacemaker. documented in this encounter Plan of Treatment +--------+ + + + + | Date | Type | Specialty | Care Team | Description | +--------+ + + + + | 08/21/ | Implant | Cardiology | Daljit Singletary, | Remote Device | | 2019 | Monitor | | MD Chiquis Oro | Interrogation | | | | | [place], | (Primary Dx); | | | | | [place] [address] | Pacemaker; | | | | | [phone] | Sinoatrial node | | | | | | dysfunction (HCC) | | | | | | with symptomatic | | | | | | bradycardia | +--------+ + + + + | 08/21/ | Implant | Cardiology | Daljit Singletary, | Remote Device | | 2019 | Monitor | | MD [address] | Interrogation | | | | | [place], | (Primary Dx); | | | | | [place] [address] | Pacemaker; | | | | | [phone] | Sinoatrial node | | | | | | dysfunction (HCC) | | | | | | with symptomatic | | | | | | bradycardia | +--------+ + + + + | 08/21/ | Implant | Cardiology | Daljit Singletary, | Remote Device | | 2019 | Monitor | | MD [address] | Interrogation | | | | | [place], | (Primary Dx); | | | | | [place] [address] | Pacemaker; | | | | | [phone] | Sinoatrial node | | | | | | dysfunction ([facility]) | | | | | | with symptomatic | | | | | | bradycardia | +--------+ + + + + | 08/21/ | Implant | Cardiology | Daljit Singletary, | Remote Device | | 2019 | Monitor | | MD [address] | Interrogation | | | | | [place], | (Primary Dx); | | | | | [place] [address] | Pacemaker; | | | | | [phone] | Sinoatrial node | | | | | | dysfunction (HCC) | | | | | | with symptomatic | | | | | | bradycardia | +--------+ + + + + | 08/21/ | Implant | Cardiology | AnshujohnsonDaljit villarreal, | Remote Device | | 2019 | Monitor | | [address] | Interrogation | | | | | [place], | (Primary Dx); | | | | | [place] [address] | Pacemaker; | | | | | [phone] | Sinoatrial node | | | | [...] W | | | | | | [place], | | | | | | [place] [address] | | | | | | [phone] | | | | | | | [...] + | ED INFORMATION | Routin | 06/02/2019 | | | | EXCHANGE | e | 6:31 PM | | | | | | PDT | | | + +--------+ + + + +---+--------+ | | | | | Proced | | | ure | | | Note - | | | Eneida, | | | Lab In | | | | | | Hlseve | | | n - | | | | | | 2019 | | | 6:31 | | | PM PDT | | [...] | | | ON?07/ | | | 12/201 | | | 9 | | | 18:29? | | | HODGEN | | | , | | | FREDER | | | ICK | | | W?MRN: | | | | | | [id number] | | | [id number] | | | riteri | | | [...] | | | St. | | | [place] | | | y | | | [...] | | | Center | | | 6 0 | | | [facility] | [facility] | | | [place] | | | y | | | [...] | | out | | | of 13 | | | in the | | [...] | | | [facility]urt | | | 12, | | | 2019 | | | Provid | | | ence | | | St. | | | [facility] | | | [place] | | | [place] | | | Emerge | | | ncy | | | | | | pacema | | | ke | | | issues | | | Davi | | | 18, | | | 2019 | | | Provid | | | ence | | | St. | | | [facility] | | | [facility] | | | [place] | | | [place] | | | Emerge | | | ncy | | | abd | | | pain, | | | emesis | | | | | | Abdomi | | | nal | | | Pain | | | | | | Functi | | | onal | | | diarrh | | | ea | | | Davi | | | 17, | | | 2019 | | | Good | | | Shephe | | | rd | | | Health | | | | | | [place] | | | [place] | | | Emerge | | | ncy | | | IBS | | | FLARE | | | | | | Diarrh | | | ea, | | | unspec | | | ified | | | May | | | 23, | | | 2019 | | | [facility] | | | [facility] | | | [place] | | | y H. | | [...] | | | St. | | | [place] | | | y H. | | [...] ified | | | | | | Recent [...] | | | Care | | | TeamPr | | | ovider | | | PRC | | | Type | | | Phone | | | Fax | | | Servic | | | e | | | Dates | | | KALICH | | | MAN, | | | WILLIA | | | M, | | | M.D. | | | Grief Counselor | | | al | | | [...] | | | ent/60 | | | [id number] | | | [phone] | | | [...] | | | teness | | | | | | ofinfo | | | rmatio | | | n | | | provid | | | [...] | | | | Comment:Reference | | [facility] | | | | Ranges: 0.00-0.06 = [...] | | | | | | [employer] | | | | | [...] [address] | [place] | [phone] | | [facility] | | [address] | | | - LABORATORY | | [...] + | [facility] | [address] | [place] | [phone] | | [facility] | | [address] | | | - LABORATORY | | [...] in | 12 - 53 U/L | [facility] | | | | use as of January 18, | | [facility] | | | | [facility]. Check [...] [address] | [place] | [phone] | | [facility] | | [address] | | | - LABORATORY | | [...] 15 | 9 - 23 mg/dL | [facility] | | | | | | [facility] | | | | | | MEDICAL | | | | | | CENTER - | | | | | | LABORATORY | | + + + + + + | Creatinine | 0.92 | 0.70 - 1.30 | [facility] | | | | | mg/dL | [facility] | | | | | | MEDICAL | | | | | | CENTER - | | | | | | LABORATORY | | + + + + + + | eGFR, | >60Comment: GLOMERULAR | >=60 | [facility] | | | non- | FILTRATION | mL/min/1.73m2 | [facility] | | | [employer] | RATE,ESTIMATED | | MEDICAL | | | | mL/min/1.07b1Zlvc than | | CENTER - | | [...] + | [facility] | [address] | [place] | [phone] | | [facility] | | [address] | | | - LABORATORY | | | | + + + + + CBC with Differential (06/02/2019 7:07 PM PDT) + +-------+ + + + | Component | Value | Ref Range | Performed | Pathologist | | | | | At | Signature | + +-------+ + + + | White Blood | 6.3 | 4.0 - 11.0 K/uL | [facility] | | | Cells | | | [facility] | [...] ST. | [address] | [place] | [phone] | | [facility] | | [address] | | | - LABORATORY | | | | + + + + + B Type Natriuretic Peptide (06/02/2019 7:07 PM PDT) + +-------+ + + + | Component | Value | Ref Range | Performed | Pathologist | | | | | At | Signature | + +-------+ + + + | BNP | 48 | <100 pg/mL | [facility] | | [...] [address] | [place] | [phone] | | [facility] | | [address] | | | - LABORATORY | | [...] | | | | ANGELA MARADIAGA MD ([id number]) | | | | | | on [...] + | Eneida, Rad Results In - 06/02/2019 8:08 PM [...] + | Palpitations | + + | Remote Device Interrogation [...] | | | | Starting Wed06/02/19 at 2030, | | | | | | | Patient Address: [address] [place] [address] | | | | | | | [place] [address], | | | | | | + + + +------+---+---+ +---+---+ | | | +---+---+ documented in this encounter
--- OUTSIDE RECORDS SUMMARY | ~2020-08-06 | XMS | Encounter Summary ---
Demographics + + + | Address | [address] | | | [place] [address] | + + + | Home Phone [...] Team Providers + +------+ + | Care Stave Log Cut Off Saw Operator Name | Role | Phone [...] Provider Unknown | | | | | [place], [place] | [phone] | | | | | [address] | | | | | | [phone] | | | +--------+ + + + [...] | | | | | | | #[id number], exp 07/2016 | | | | | + + + +---------+ + + | UNCODED MEDICATION | Diagnosis: | 1 | 0 | 02/16/20 | 08/25/202 | | | Obstructive Sleep | Device [...] 2020 | Monitor | | [address] | Interrogation | | | | | [place], | (Primary Dx); | | | | | [place] [address] | Pacemaker; | | | | | [phone] | Sinoatrial node | | | | | | dysfunction (HCC) | | | | | | with symptomatic | | | | | | bradycardia | +--------+ + + + + | 08/21/ | Implant | Cardiology | Daljit Singletary, | Remote Device | | 2019 | Monitor | | MD [address] | Interrogation | | | | | [place], | (Primary Dx); | | | | | [place] [address] | Pacemaker; | | | | | [phone] | Sinoatrial node | | | | | | dysfunction (HCC) | | | | | | with symptomatic | | | | | | bradycardia | +--------+ + + + + | 08/21/ | Implant | Cardiology | Daljit Singletary, | Remote Device | | 2019 | Monitor | | MD [address] | Interrogation | | | | | [place], | (Primary Dx); | | | | | [place] [address] | Pacemaker; | | | | | [phone] | Sinoatrial node | | | | | | dysfunction (HCC) | | | | | | with symptomatic | | | | | | bradycardia | +--------+ + + + + | 08/21/ | Implant | Cardiology | Daljit Singletary, | Remote Device | | 2019 | Monitor | | MD [address] | Interrogation | | | | | [place], | (Primary Dx); | | | | | [place] [address] | Pacemaker; | | | | | [phone] | Sinoatrial node | | | | | | dysfunction (HCC) | | | | | | with symptomatic | | | | | | bradycardia | +--------+ + + + + | 08/21/ | Implant | Cardiology | Daljit Singletary, | Remote Device | | 2019 | Monitor | | MD [address] | Interrogation | | | | | [place], | (Primary Dx); | | | | | [place] [address] | Pacemaker; | | | | | [phone] | Sinoatrial node | | | | [...] W | | | | | | [place], | | | | | | [place] [address] | | | | | | [phone] | | | | | | | [...] | Pain Generalized pain | + + | Remote Device Interrogation [...]
--- OUTSIDE RECORDS SUMMARY | ~2020-08-06 | XMS | Encounter Summary ---
Demographics + + + | Address | [address] | | | [place] [address] | + + + | Home Phone [...] Providers + +------+ + | Care Tool Repairer Name | Role | Phone | [...] + | 10/23/ | Refill | [facility] | Gemini Shaistakenneth, | Medication Refill | | 2013 | | [place] [address] [place] | | | | | [place], | [place], | | | | | [place] [address] | [place] [address] | | | | | [phone] | [phone] | | | | | | | [...] Dx); | | | | | [place] [address] | Pacemaker; | | | | | [phone] | Sinoatrial node | | | | | | dysfunction ([facility]) | | | | | | with symptomatic | | | | | | bradycardia | +--------+ + + + + | 08/21/ | Implant | Cardiology | Daljit Singletary, | Remote Device | | 2019 | Monitor | | MD [address] | Interrogation | | | | | [place], | (Primary Dx); | | | | | [place] [address] | Pacemaker; | | | | | [phone] | Sinoatrial node | | | | | | dysfunction (HCC) | | | | | | with symptomatic | | | | | | bradycardia | +--------+ + + + + | 08/21/ | Implant | Cardiology | Daljit Singletary, | Remote Device | | 2019 | Monitor | | MD [address] | Interrogation | | | | | [place], | (Primary Dx); | | | | | [place] [address] | Pacemaker; | | | | | [phone] | Sinoatrial node | | | | | | dysfunction (HCC) | | | | | | with symptomatic | | | | | | bradycardia | +--------+ + + + + | 08/21/ | Implant | Cardiology | Daljit Singletary, | Remote Device | | 2019 | Monitor | | MD [address] | Interrogation | | | | | [place], | (Primary Dx); | | | | | [place] [address] | Pacemaker; | | | | | [phone] | Sinoatrial node | | | | | | dysfunction (HCC) | | | | | | with symptomatic | | | | | | bradycardia | +--------+ + + + + | 08/21/ | Implant | Cardiology | Daljit Singletary, | Remote Device | | 2019 | Monitor | | [address] | Interrogation | | | | | [place], | (Primary Dx); | | | | | [place] [address] | Pacemaker; | | | | | [phone] | Sinoatrial node | | | | [...] W | | | | | | [place], | | | | | | [place] [address] | | | | | | [phone] | | | | | | | | +--------+ + + + + documented as of this encounter Visit Diagnoses Not on filedocumented in this encounter"
--- OUTSIDE RECORDS SUMMARY | ~2020-08-06 | XMS | Encounter Summary ---
Demographics + + + | Address | [id number] [place] [address] [address] | | | [place] [address] | + + + | Home Phone [...] [place] | | | | | [address] | | + + + + + Care Team Providers + +------+ + | Care Electric Range Servicer Name | Role | Phone | [...] Chest pain | Farooq Almaguer, | [address] | | | | | Bradycardia | DO [address] | | | | | Procedures | Yao Booth | [facility] | | | | | | [facility] | Health and | | | | | TRANSTHORACI | [facility] [place] | Healing, | | | | | C | [address] | [address] | | | | | ECHOCARDIOGR | Phone: | [place], [place] | | | | | AM, ADULT | [phone] | [address] | | | | | | Fax: | Phone: | | | | | | [phone] | [phone] | +--------+--------+ + + + + Encounter Details +--------+ + + + + | Date | Type | Department | Care Team | Description | +--------+ + + + + | 02/03/ | Hospital | Cardiac | | | | 2010 | Encounter | Non-Invasive Testing | | | | | | at [facility] [address] | | | | | | [facility] | | | | | | Health and Healing, | | | | | | [address] | | | | | | [place], [place] | | | | | | [address] | | | | | | [phone] | | | +--------+ + + + [...]
--- OUTSIDE RECORDS SUMMARY | ~2020-08-06 | XMS | Encounter Summary ---
Demographics + + + | Address | [address] [place] [address] [address] | | | [place] [address] | + + + | Home Phone [...] [place] | | | | | [address] | | + + + + + Care Team Providers + +------+ + | Care Regional Director Of Admissions Name | Role | Phone | + +------+ + | Darion Holden DO | PCP | | + +------+ + Reason for Visit + +--------+ + | Reason | Onset | Comments | | | Date | | + +--------+ + | Medical Records | 10/17/ | | | Review | 2018 | | + +--------+ + Encounter Details +--------+ + + + + | Date | Type | Department | Care Team | Description | +--------+ + + + + | 10/17/ | Abstract | Digestive Health | Bridgette Rios, | Medical Records | | 2019 | | Center at [facility] [address] | MD [address] | Review | | | | [address] | [place], [place] | | | | | for Health and | [address] | | | | | [facility] 2 | [phone] | | | | | [place], [place] | | | | | | [address] | | | | | | [phone] | | | +--------+ + + + [...]
--- OUTSIDE RECORDS SUMMARY | ~2020-08-06 | XMS | Encounter Summary ---
Demographics + + + | Address | [address] | | | [place] [address] | + + + | Home Phone [...] Team Providers + +------+ + | Care Central Supply Supervisor Name | Role | Phone | [...] | MD [address] | [address] | | | | | hypertension | [address] | [place], | | | | | Sick sinus | [address] | [place] | | | | | syndrome | [place], [place] | [address] | | | | | (HCC) | [address] | Phone: | | | | | Ventricular | Phone: | [phone] | | | | | premature | [phone] | Fax: | | | | | depolarizati | Fax: | [phone] | | | | | on | [phone] | | | | | | Tachycardia, | | | | | | | unspecified | | | | | | | | | | | | | | Atherosclero | | | | | | | tic heart | | | | | | | disease of | | | | | | | nenana | | | | | | | [...] + + | 05/01/ | Office | [facility] | Silvia, | Sinoatrial node | | 2020 | Visit | CARDIOLOGY [address] | [place] [address] | dysfunction (HCC) | | | | [place], | [place], | with symptomatic | | | | [place] [address] | [place] [address] | bradycardia (Primary | | | | [phone] | [phone] | Dx); Symptomatic | | | | | | PVCs; Tachycardia; | | | | | | Coronary artery | | | | | | disease involving | | | | | | nenana coronary | | | | | | artery of nenana | | | | | | heart [...] encounter Patient Instructions Patient Instructions Vidhi Gillespie, Cnp - 05/01/2020 3:00 PM PDT1. Incre ase [...] [facility] Stay Connected line. Monthly remote monitoring. Device interrogation due in office at [facility]. Janeen Allison ARNP - 05/01/2020 3:00 PM PDTFormatting of th is note might be different from the original. PATIENT NAME: Moe Sanchez : 1960: AGE: 60 y.o. PRIMARY CARE: Kirk French MD OUTPATIENT FOLLOW UP VISIT Date of Service: 05/01/2020 HISTORY OF PRESENT ILLNESS: Moe Sanchez is a 60 y.o. 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 Patient also will need echocardiogram for his next appointment to evaluate his ascending aorta Since that time,on 01/11/2020 he was seen by PCP for follow up. On 01/31/2020 patient called and states that he sees a pain specialist in [place] and they would like him to start [...] Preventative health care Coronary artery disease involving nenana coronary artery of nenana heart without angina pectoris Marijuana use Ascending [...] ONE TABLET UNDER THE TONGUE EVERY 5 [place] NUTES NEEDED FOR CHEST PAIN 250 tablet 0 nortriptyline (PAMELOR) 25 mg capsule Take 25 mg by mouth. [place]-3 Fatty Acids (SALMON OIL-1000 PO) CAPS, one capsule by mouth daily twice daily ondansetron (ZOFRAN ODT) 4 mg disintegrating tablet Take 4 mg by mouth every 8 hours as needed for Nausea. ondansetron (ZOFRAN) 4 mg tablet Take 4 mg by mouth. ONE TOUCH DELICA LANCETS [facility] Check glucose as needed for [...] was found Confirmed by SYDNI SINGLETARY MD ([id number]) on 06/06/2019 3:43:10 PM LAB RESULTS reviewed during visit today primarily from [facility]: LIPID Lab Results Component Value Date CHOL [...] 48 06/02/2019 I reviewed records from [facility] for office visit on 01/01/2020 wh ich is summarized in the HPI. RESULTS- I reviewed reports from [facility]: No results found. Above data and testing is reviewed this visit; testing below is historical data unless othe rwise specified. ASSESSMENT: 1. Non-critical Coronary artery disease involving nenana coronary artery of nenana heart wi thout angina pectoris: A.Normal exercise [...] no limitations of ac tivities of the [place] [employer] functional class. Heart failure stage [...] to go back in 3 days to [place] for an attempt of ablation under general [...] pm, PAC'sin couplets and PVC'swere noted, by ySdni Singletary MD. F.Today, 05/01/2020, he had echocardiogram [...] at his follow up visit Vidhi Clemente, Cnp am acting as a scribe on behalf of, and in the prese nce of PARISA Lomas. - Vidhi Gillespie, Cnp 05/01/2020 12:50 PM IJaneen ARNP, personally performed the services described in this documentati on, as scribed in my presence and it is both accurate and complete. -PARISA Lomas 05/01/2020 Portions of this chart may have been created with [employer] voice recognition software. Occasi onal wrong-word or [...] Dx); | | | | | [place] [address] | Pacemaker; | | | | | [phone] | Sinoatrial node | | | | [...] Dx); | | | | | [place] [address] | Pacemaker; | | | | | [phone] | Sinoatrial node | | | | | | dysfunction ([facility]) | | | | | | with symptomatic | | | | | | bradycardia | +--------+ + + + + | 08/21/ | Implant | Cardiology | Sydni Singletary, | Remote Device | | 2019 | Monitor | | MD [address] | Interrogation | | | | | [place], | (Primary Dx); | | | | | [place] [address] | Pacemaker; | | | | | [phone] | Sinoatrial node | | | | | | dysfunction (HCC) | | | | | | with symptomatic | | | | | | bradycardia | +--------+ + + + + | 08/21/ | Implant | Cardiology | Shaista Singletarypawanotto, | Remote Device | | 2019 | Monitor | | MD [address] | Interrogation | | | | | [place], | (Primary Dx); | | | | | [place] [address] | Pacemaker; | | | | | [phone] | Sinoatrial node | | | | | | dysfunction (HCC) | | | | | | with symptomatic | | | | | | bradycardia | +--------+ + + + + | 08/21/ | Implant | Cardiology | Sydni Singletary, | Remote Device | | 2019 | Monitor | | MD [address] | Interrogation | | | | | [place], | (Primary Dx); | | | | | [place] [address] | Pacemaker; | | | | | [phone] | Sinoatrial node | | | | [...] | 2019 | Visit | | JaneenPARISA [address] | | | | | | [place], | | | | | | [place] [address] | | | | | | [phone] | | | | | | | [...] + + | Coronary artery disease involving nenana coronary artery of nenana heart without | | angina pectoris | [...] of cardiac pacemaker | + + | Remote Device Interrogation [...]
--- OUTSIDE RECORDS SUMMARY | ~2020-08-06 | XMS | Encounter Summary ---
Demographics + + + | Address | [address] [place] [address] [address] | | | [place] [address] | + + + | Home Phone [...] [place] | | | | | [address] | | + + + + + Care Team Providers + +------+ + | Care Electrician Front Name | Role | Phone | + [...] | | | | l weight | [place], [place] | | | | | | loss | [address] | | | | | | Procedures | Phone: | | | | | | CONSULT TO | [phone] | | | | | | NON - [facility] | Fax: | | | | | | PROVIDER | [phone] | | | | | | CONSULT TO | | | | | | | NON - [facility] | | | | | | | PROVIDER | | | + +--------+ + + + + Reason for Visit +--------+--------+ + | Reason | Onset | Comments | | | Date | | +--------+--------+ + | Other | 11/17/ | wants to change location of referral | | | 2018 | | +--------+--------+ + Encounter Details +--------+ + + + + | Date | Type | Department | Care Team | Description | +--------+ + + + + | 11/17/ | Telephone | Dig[facility]ive Health | Bridgette Rios, | Other (wants to | | 2019 | | Center at [facility] [address] | MD [address] | change location of | | | | [address] | [place], [place] | referral ) | | | | for Health and | [address] | | | | | [facility] 2 | [phone] | | | | | [place], [place] | | | | | | [address] | | | | | | [phone] | | | +--------+ + + + [...] this encounter Miscellaneous Notes Telephone Encounter - Fazal AllysonMONROE - 12/07/2019 2:09 PM PSTSpoke with Amilcar about his recent ED visit for dehydration. He had 10 good days without symptoms and then diarrhea worsened, he does not know why. Went to local ED at [facility] for pain and feeling dehydrated. He says the pain can be w orse than "when I had appendicitis in [place]." He reports he got some lomotil and fluids. H e says he had tried all the PO meds he has been prescribed by us to help stop diarrhea but i t wasn't enough to stop the diarrhea. He has been alternating gatorade and water, he does us e oral rehydration solutions sometimes. He says he was told at the ED he is using the ED too much and a protective services social worker talked to him about being seen in an office visit instead. His PCP is over an hour away when the weather is good, and coming to see us in [place] is too far to travel for an acute issue such as de hydration. He is a bit stressed about this, and says his insurance isn't wanting to pay for ED visits. Medications tried: He notes hyoscyamine/dicyclomine does seem to help his symptoms. He has tried both at maxim um dosing. He is taking lomotil. He had been taking metamucil to bulk his stools, but sounds like he recently stopped that. Tried nortriptyline twice, with side effect of angry mood and stopped. No change in his foods recently, usually eats oatmeal with organic cane sugar, lactose free milk, roast beef, mashed potatoes without skins. 12/18/19 PillCam is scheduled locally, which is last step in our workup thus far. Discussed to continue changing one thing at a time to see if his symptoms improve or worsen . He finds the condition depressing overall. He asks if acupuncture could be helpful, he says he saw an acupuncture practitioner at [facility] before. Discussed importance of maintaining hydration, encouraged him to let us know what comes of the discussion with ED protective services social worker. Let him know I would review with Dr. Rios for any a dditional recommendations, he is already aware of red flag symptoms to seek urgent evaluatio n r/t GI symptoms. We spent 10 minutes on the phone today. elephone Encounter - Bridgette Santizo - 12/07/2019 2:04 PM PSTPt lvm 12/07 at 1:32 PM Said he was calling for Dr. Rios outpatient services director. Pt said he was in ED yesterday "sicker than a do g". Seeks call back. elephone Encounter - Bridgette Santizo - 12/06/2019 3:54 PM PSTPt lvm 12/06 at 3:23 PM Pt states he is "in Emergency Room with my stomach again" and seeks call back from clinical team. No other details left. Telephone Encounter - Malik Alvares RN - 12/06/2019 12:46 PM PSTAnsteo, Referral Coordin ator from pt's PCP office called to inform us that PCP does not do Pill Cam Studies. I infor med her that the pt is having it done elsewhere. elephone Encounter - Malik Alvares RN - 11/29/2019 4:23 PM PSTI called pt back and spoke to him about Pill Cam Study and who he needed to call. Pt said that the clinic would not let him schedule and was giving him the run around. Pt asked if I could help him get scheduled. I called [facility] and spoke to Mi about getting pt scheduled. Herlinda hughes said she needs pt to call her directly poncho to schedule. I called pt and asked him to call Ava. Pt will call. elephone Encounter - Bridgette Santizo - 11/29/2019 4:10 PM PSTPt lvm 11/29 at 3:07 PM Said he was returning a call he received from us earlier today. Seeks call back.Electronica samiry signed by Bridgette Santizo at 11/29/2019 4:10 PM PSTTelephone Encounter - Malik Alvares RN - 11/29/2019 11:15 AM PSTI called [facility] [place]; pill cam study paulino s been approved for pt and he is able to call them and schedule at any time. Pt to call . I called pt to discuss referral and pill cam needs. No answer. Voice mail left asking for a call back. elephone Encounter - Bridgette Santizo - 11/28/2019 3:23 PM PSTPt lvm 11/28 at 2:25 PM Call was regarding his Pill Cam and how he has been experiencing a lot of problems getting it scheduled locally. Pt says he wants to have done at [facility] instead. Seeks call back.Electro nically signed by Bridgette Santizo at 11/28/2019 3:24 PM PSTTelephone Encounter - Bryan Diehl RN - 11/24/2019 3:40 PM PSTSpoke with Amilcar, he says he has been poked a lot of times w hen he goes in to the ED and needs labs. He says the ED staff mentioned a port, and wanted t o see what we thought of that. I advised he discuss port placement with his PCP. I have seen ports placed for frequent inf usions or chemo, but not generally for blood draws, as there are risks to having a port. He agrees to discuss with PCP. He will call us back when he schedules his local capsule endoscopy. elephone Encounter - Bridgette Santizo - 020 2:46 PM PSTPt lvm 11/24 at 12:36 PM Said he wanted call back from Dr. Rios's RN, did not state reason for call.Electronicall y signed by Bridgette Santizo at 11/24/2019 2:46 PM PSTTelephone Encounter - Allyson Diehl R N - 11/23/2019 12:49 PM PSTPer cecilia Bach for local marine driller consult, referral place d. Faxed face sheet, referral and last office visit to [facility] marine driller services, f#. Spoke with Amilcar and let him know referral was sent to marine driller. He is going to call [place] back to schedule capsule endoscopy, but he had heard that they would be able to schedu le him. No other questions at this time. elephone Encounter - Netta Alexander - 11/21/2019 2:25 PM PSTPerson calling? (Patient, spouse, caregiver, me dical office, etc): patient Reason for call: stating that he has his capsule endoscopy set up with a GI clinic in [place]. Pt would also like to have a referral sent to [facility] for a marine driller fax # Provider / Specialty: wanda henning/ Blanca Call back number confirmed?: yes Best call back number / ext: [phone] / noted under contact or phone tab. Caller would like a call back to discuss. Ok to leave a detailed message?: yes elephone Encounter - Allyson Velazquez RN - 11/17/2019 11:21 AM PSTIf Amilcar calls back, let him know I have message s out to both providers, and will call him back when I hear more! Referring/local GI Dr Daniel's office is closed, left message requesting update on referral for capsule we sent. Left message with staff at Dr French's office (he is a PCP) requesting recommendation fo r any other local provider that can do capsule endoscopy, they will call us back with that i nfo. Kirk French MD [address] [facility] [address] [place], [place] [id number] Emmanuel Daniel MD [address], [facility] [address] [place] [address] [phone] TTelephone Encounter - Netta Alexander - 11/17/2019 10:01 AM PSTPerson calling? (Patient, s pouse, caregiver, medical office, etc): Patient Reason for call: stating that the referral that was sent to [facility] for Dr. Say flores as not been process. They keep giving him th run around and would like someone in Dr. Zhang office call and check. He would prefer to have this switched to [facility] [phone] Provider / Specialty: wanda/ Blanca Call back number confirmed?: yes Best call back number / ext: [phone] / noted under contact or phone tab. [...]
--- OUTSIDE RECORDS SUMMARY | ~2020-08-06 | XMS | Encounter Summary ---
Demographics + + + | Address | [id number] [place] [address] [address] LOZ[address]O | | | [place] [address] | + + + | Home Phone [...] [place] | | | | | [address] | | + + + + + Care Team Providers + +------+ + | Care Senior Support Analyst Name | Role | Phone | + +------+ + | Darion Holden DO | PCP | | + +------+ + Reason for Visit +--------+--------+ + | Reason | Onset | Comments | | | Date | | +--------+--------+ + | Other | 10/11/ | stool lab results | | | 2018 | | +--------+--------+ + Encounter Details +--------+ + + + + | Date | Type | Department | Care Team | Description | +--------+ + + + + | 10/11/ | Telephone | Digestive Health | Bridgette Rios, | Other (stool lab | | 2019 | | Center at [facility] [address] | MD [address] | results) | | | | [address] | [place], [place] | | | | | for Health and | [address] | | | | | [facility], [facility] 2 | [phone] | | | | | [place], [place] | | | | | | [address] | | | | | | [phone] | | | +--------+ + + + [...] this encounter Miscellaneous Notes Telephone Encounter - Malik Alvares RN - 10/25/2019 4:50 PM PSTResults routed to Dr. Brea vincent per ANUSHKA Soto. Results normal. ele phone Encounter - Brittany Sow MA - 10/25/2019 3:59 PM PSTStool lab results received fr [facility]. Uploaded to patient's chart. elephone Encounter - Allyson Diehl RN - 10/16/2019 2:4 6 PM PSTStool sample results are incomplete, still needing isospora, fecal calprotectin and pancreatic elastase results. 2:4 6 PM PSTTelephone Encounter - Brittany Sow MA - 10/16/2019 2:28 PM PSTStool sample resu lts uploaded to patient's chart. 2 :28 PM PSTTelephone Encounter - Brittany Sow MA - 10/16/2019 1:50 PM PSTPlaced call to patient and he states that he had dropped off his stool samples at [facility] in [facility]. Placed call to [facility] and spoke with Mariama. She is faxing stool sample results to our [facility] fax. elephone Bridgette Sabillon - 10/16/2019 11:57 AM PSTPerson calling? (Patient, spouse, caregiver, medical office, etc): Pt Reason for call: Said he was returning MA's call. Claudia REVELES. Advised message being sent for call back. Provider / Specialty: Blanca/Aurelia Sampson Call back number confirmed?: Yes Best call back number / ext: / noted under contact or phone tab. Caller would like a call back to discuss. Ok to leave a detailed message?: yes 11:5 8 AM PSTTelephone Encounter - Brittany Sow MA - 10/16/2019 11:07 AM PSTAttempted to cont act the patient. LVM for patient to call back. elephone Encounter - Brittany Sow MA - 10/13/2019 9:20 AM PSTA ttempted to contact patient, phone not available. elephone Encounter - Bridgette Santizo - 10/12/2019 2:45 PM PSTPt lv m 10/12 at 1:56 PM Said he was returning MA's call, no other details left. elephone Encounter - Brittany Sow MA - 10/12/2019 1:47 PM P STLVM to patient with below medication instructions and asked patient to call and confirm if he had turned in stool samples to the local lab. elephone Encounter - Elham Olson - 10/12/2019 11:47 AM PSTPt returning call to claudia Soto MA, seeks call back. [phone] elephone Encounter - Allyson Diehl RN - 10/12 10:26 AM PST ----- Message ----- From: Bridgette Rios MD Sent: 10/12/2019 9:30 AM PST To: Allyson Diehl RN Can you let him know ok to stop the nortryptiline and review doses of imodium and lomitil w ith him? He can take imodium 2 tablets 4 times per day with lomotil in between those dosesE lectronically signed by Allyson Diehl RN at 10/12/2019 10:26 AM PSTTelephone Encounter - Mel Kennedy - 10/11/2019 2:28 PM PSTPerson calling? (Patient, spouse, caregiver, nm dical office, etc): pt Reason for call: pt called in and reported that he is taking lomitil 4 dose in the morning and doesn't stop the diarrhea and he wants to know if Dr. Rios can add the dosage to stop his diarrhea. Pt also mentioned that he doesn't want to take this medication because of gavi e effects, he mentioned that medication makes him extremely mean nortriptyline 25 mg oral c apsule Informed I will send the message to Dr. Rios Pt seeks call back Provider / Specialty: Dr. Rios Call back number confirmed?: yes Best call back number / ext: noted under contact or phone tab. Caller would like a call back to discuss. Ok to leave a detailed message?: yes documented in this enc ounter Plan of Treatment Not on filedocumented as of this encounter Visit Diagnoses Not on filedocumented in this encounter"
--- OUTSIDE RECORDS SUMMARY | ~2020-08-06 | XMS | Encounter Summary ---
Demographics + + + | Address | [id number] [place] [address] [address] LOZ[address]O | | | [place] [address] | + + + | Home Phone [...] [place] | | | | | [address] | | + + + + + Care Team Providers + +------+ + | Care News Producer Name | Role | Phone | [...] Yao | | | | | at [facility] | [facility] | | | | | [address] | [place] [address] | | | | | [address] | | | | | | [place], [address] [place] [address] | | | | | | [place], [place] | | | | | | [address] | | | | | | [phone] | | | +--------+ + + + [...] view image for the detailed interpretation from emoquo results. | CARDIOLOGY | + + + + + + + + | Performing | Address | City/State/Zipcode | Phone Number | | Organization | | | | + + + + + | [facility] | [address] | [place], [place] | | | CARDIOLOGY | [address] | [address] | | + + + + + documented in this encounter Visit Diagnoses Not on filedocumented in this encounter"
--- OUTSIDE RECORDS SUMMARY | ~2020-08-06 | XMS | Encounter Summary ---
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, | (Primary Dx); | | | | | [place] [address] | Pacemaker; | | | | | [phone] | Sinoatrial node | | | | | | dysfunction (HCC) | | | | | | with symptomatic | | | | | | bradycardia | +--------+ + + + + | 08/21/ | Implant | Cardiology | Daljit Singletary, | Remote Device | | 2019 | Monitor | | MD [address] | Interrogation | | | | | [place], | (Primary Dx); | | | | | [place] [address] | Pacemaker; | | | | | [phone] | Sinoatrial node | | | | | | dysfunction (HCC) | | | | | | with symptomatic | | | | | | bradycardia | +--------+ + + + + | 08/21/ | Implant | Cardiology | Daljit Singletary, | Remote Device | | 2019 | Monitor | | MD [address] | Interrogation | | | | | [place], | (Primary Dx); | | | | | [place] [address] | Pacemaker; | | | | | [phone] | Sinoatrial node | | | | | | dysfunction (HCC) | | | | | | with symptomatic | | | | | | bradycardia | +--------+ + + + + | 08/21/ | Implant | Cardiology | Daljit Singletary, | Remote Device | | 2020 | Monitor | | MD [address] | Interrogation | | | | | [place], | (Primary Dx); | | | | | [place] [address] | Pacemaker; | | | | | [phone] | Sinoatrial node | | | | | | dysfunction (HCC) | | | | | | with symptomatic | | | | | | bradycardia | +--------+ + + + + | 08/21/ | Implant | Cardiology | Daljit Singletary, | Remote Device | | 2020 | Monitor | | MD [address] | Interrogation | | | | | [place], | (Primary Dx); | | | | | [place] [address] | Pacemaker; | | | | | [phone] | Sinoatrial node | | | | [...] [address] | | | | | | [place], | | | | | | [place] [address] | | | | | | [phone] | | | | | | | [...] episode, | | unspecified | + + | Remote Device [...]
--- OUTSIDE RECORDS SUMMARY | ~2020-08-06 | XMS | Encounter Summary ---
Demographics + + + | Address | [address] | | | [place] [address] | + + + | Home Phone [...] Providers + +------+ + | Care Application Project Leader Name | Role | Phone | + +------+ + | Kirk French MD | PCP | | + +------+ + Reason for Visit + +--------+ + | Reason | Onset | Comments | | | Date | | + +--------+ + | Follow-up, Office | 12/14/ | wants to cancel his office appointment today | | Visit | 2019 | | + +--------+ + Encounter Details +--------+ + + + + | Date | Type | Department | Care Team | Description | +--------+ + + + + | 12/14/ | Telephone | [facility] | Emmanuel Daniel MD | Follow-up, Office | | 2019 | | GASTROENTEROLOGY | [address] [facility] | Visit (wants to | | | | [address] [facility] | [address] [place] | cancel his office | | | | [address] [place], [place] | [address] | appointment today) | | | | [address] | | | | | | [phone] | | | +--------+ + + + [...] this encounter Miscellaneous Notes Telephone Encounter - MattKailyn, ENGINEERING SURVEYOR - 12/14/2018 12:00 PM PSTPatient calls in, state s he is too weak to come for his office appointment with Dr. Daniel at 1330 today. PSR raji erred call to me, and I asked patient if he had anyone that could drive him here to his appo intment, he states he didn't, so I suggested he could go to urgent care, or the ED. He state s all of the ED departments are horrible, he states he has been to [facility] , [facility], and they are all bad, and could not do anything for him, call transf erred back up front to reschedule himElectronically signed by Kailyn Gutierrez CMA at 019 12:03 PM PSTdocumented in this encounter Plan of [...] Dx); | | | | | [place] [address] | Pacemaker; | | | | | [phone] | Sinoatrial node | | | | [...] Dx); | | | | | [place] [address] | Pacemaker; | | | | | [phone] | Sinoatrial node | | | | [...] Dx); | | | | | [place] [address] | Pacemaker; | | | | | [phone] | Sinoatrial node | | | | | | dysfunction ([facility]) | | | | | | with symptomatic | | | | | | bradycardia | +--------+ + + + + | 08/21/ | Implant | Cardiology | Daljit Singletary, | Remote Device | | 2019 | Monitor | | MD [address] | Interrogation | | | | | [place], | (Primary Dx); | | | | | [place] [address] | Pacemaker; | | | | | [phone] | Sinoatrial node | | | | | | dysfunction ([facility]) | | | | | | with symptomatic | | | | | | bradycardia | +--------+ + + + + | 08/21/ | Implant | Cardiology | Daljit Singletary, | Remote Device | | 2019 | Monitor | | [address] | Interrogation | | | | | [place], | (Primary Dx); | | | | | [place] [address] | Pacemaker; | | | | | [phone] | Sinoatrial node | | | | [...] W | | | | | | [place], | | | | | | [place] [address] | | | | | | [phone] | | | | | | | | +--------+ + + + + documented as of this encounter Visit Diagnoses Not on filedocumented in this encounter"
--- OUTSIDE RECORDS SUMMARY | ~2020-08-06 | XMS | Encounter Summary ---
Demographics + + + | Address | [address] | | | [place] [address] | + + + | Home Phone [...] | Author | [facility] | | | [...] | + + +---------+ + | Chao Madirgal | ECON | Unknown | | + + +---------+ + Care Team Providers + +------+ + | Care Chorus Master Name | Role | Phone | + +------+ + PCP | Unavailable | + +------+ + Encounter Details +--------+ + + + + | Date | Type | Department | Care Team | Description | +--------+ + + + + | 08/26/ | Hospital | [facility] | | | | 2009 | Encounter | MED CTR LABORATORY | | | | | | [address] | | | | | | [place] | | | | | | [address] | | | | | | [phone] | | | +--------+ + + + [...] | Monitor | | MD [address] | Interrogation | | | | | [place], | (Primary Dx); | | | | | [place] [address] | Pacemaker; | | | | | [phone] | Sinoatrial node | | | | | | dysfunction (HCC) | | | | | | with symptomatic | | | | | | bradycardia | +--------+ + + + + | 08/21/ | Implant | Cardiology | Daljit Singletary, | Remote Device | | 2019 | Monitor | | MD [address] | Interrogation | | | | | [place], | (Primary Dx); | | | | | [place] [address] | Pacemaker; | | | | | [phone] | Sinoatrial node | | | | | | dysfunction (HCC) | | | | | | with symptomatic | | | | | | bradycardia | +--------+ + + + + | 08/21/ | Implant | Cardiology | Daljit Singletary, | Remote Device | | 2019 | Monitor | | MD [address] | Interrogation | | | | | [place], | (Primary Dx); | | | | | [place] [address] | Pacemaker; | | | | | [phone] | Sinoatrial node | | | | | | dysfunction (HCC) | | | | | | with symptomatic | | | | | | bradycardia | +--------+ + + + + | 08/21/ | Implant | Cardiology | Daljit Singletary, | Remote Device | | 2019 | Monitor | | MD [address] | Interrogation | | | | | [place], | (Primary Dx); | | | | | [place] [address] | Pacemaker; | | | | | [phone] | Sinoatrial node | | | | | | dysfunction (HCC) | | | | | | with symptomatic | | | | | | bradycardia | +--------+ + + + + | 08/21/ | Implant | Cardiology | Daljit Singletary, | Remote Device | | 2019 | Monitor | | MD [address] | Interrogation | | | | | [place], | (Primary Dx); | | | | | [place] [address] | Pacemaker; | | | | | [phone] | Sinoatrial node | | | | [...] | | | | | | [place] [address] | | | | | | [phone] | | | | | | | | +--------+ + + + + documented as of this encounter Visit Diagnoses Not on filedocumented in this encounter"
--- OUTSIDE RECORDS SUMMARY | ~2020-08-06 | XMS | Encounter Summary ---
Demographics + + + | Address | [address] | | | [place] [address] | + + + | Home Phone [...] Team Providers + +------+ + | Care Reach Truck Operator Name | Role | Phone | + +------+ + PCP | Unavailable | + +------+ + Encounter Details +--------+ + + + + | Date | Type | Department | Care Team | Description | +--------+ + + + + | 02/01/ | Hospital | [facility] | Evan Gandara MD | | | 2008 - | Encounter | MED CTR MED ONC | [address] [facility] | | | | | [address] | [place] | | | 02/06/ | | [place] [address] | [address] | | | 2008 | | [phone] | | | +--------+ + + + [...] Interrogation | | | | | [place], | (Primary Dx); | | | | | [place] [address] | Pacemaker; | | | | | [phone] | Sinoatrial node | | | | | | dysfunction (HCC) | | | | | | with symptomatic | | | | | | bradycardia | +--------+ + + + + | 08/21/ | Implant | Cardiology | Daljit Singletary, | Remote Device | | 2019 | Monitor | | [address] | Interrogation | | | | | [place], | (Primary Dx); | | | | | [place] [address] | Pacemaker; | | | | | [phone] | Sinoatrial node | | | | | | dysfunction (HCC) | | | | | | with symptomatic | | | | | | bradycardia | +--------+ + + + + | 08/21/ | Implant | Cardiology | Daljit Singletary, | Remote Device | | 2020 | Monitor | | MD [address] | Interrogation | | | | | [place], | (Primary Dx); | | | | | [place] [address] | Pacemaker; | | | | | [phone] | Sinoatrial node | | | | | | dysfunction ([facility]) | | | | | | with symptomatic | | | | | | bradycardia | +--------+ + + + + | 08/21/ | Implant | Cardiology | Daljit Singletary, | Remote Device | | 2019 | Monitor | | MD [address] | Interrogation | | | | | [place], | (Primary Dx); | | | | | [place] [address] | Pacemaker; | | | | | [phone] | Sinoatrial node | | | | | | dysfunction ([facility]) | | | | | | with symptomatic | | | | | | bradycardia | +--------+ + + + + | 08/21/ | Implant | Cardiology | Daljit Singletary, | Remote Device | | 2019 | Monitor | | MD [address] | Interrogation | | | | | [place], | (Primary Dx); | | | | | [place] [address] | Pacemaker; | | | | | [phone] | Sinoatrial node | | | | [...] | | | | | | [place] [address] | | | | | | [phone] | | | | | | | | +--------+ + + + + documented as of this encounter Visit Diagnoses Not on filedocumented in this encounter"
--- OUTSIDE RECORDS SUMMARY | ~2020-08-06 | XMS | Encounter Summary ---
Demographics + + + | Address | [address] | | | [place] [address] | + + + | Home Phone [...] Providers + +------+ + | Care Mixer Wet Pour Name | Role | Phone | + [...] | | | Diarrhea/ | [address] | [place], [place] | | | | | Rectal | [place], [place] | [address] | | | | | Bleeding | [address] | Phone: | | | | | from [facility] | Phone: | [phone] | | | | | referral. | [phone] | Fax: | | | | | | Fax: | [phone] | | | | | | [phone] | | + + + + + [...] + + | 01/21/ | Telephone | [facility] | Kirk French | Other (wanted to let | | 2019 | | [facility] | MD Brea [address] | us know the [address] | | | | [facility] [address] | Michael cancelled his | | | | [address] | [place] [address] | appointment for a | | | | [place], [place] | [phone] | colonoscopy) | | | | [address] | | | | | | [phone] | | | +--------+ + + + [...] PSTOk to rf as request ed elephone Yasmin Haq Sia M - 01/22/2020 11:14 AM PSTpatient, is calling again for Other (w jorge to let us know the [facility] cancelled his appointment for a colonoscopy) and would like a call back. Additional Call Details: Patient state he received a call from [facility] last to wilmer weiner his appointment for colonoscopy due rodríguez virus outbreak. Patient is wanting to see i f its possible for him to get a colonoscopy at our [facility]. Call back at [phone] Sia Vasquez Ext [phone] elephone Encounter - Hailey Girard, Geological Manager - 01/22/2020 10:59 AM PSTFYI. Electronicall y signed by Hailey Padron, Geological Manager at 01/22/2020 10:59 AM PSTTelephone Encounter - Vicki Adler - 01/22/2020 8:51 AM PSTFred, is calling regarding Other (w jorge to let us know the [facility] cancelled his appointment for a colonoscopy) and would like a call back. Additional Call Details: He wanted to let us know and also wanted to let us know that [facility] is going to get a hold of us for him to swallow the camera her at [facility]. If this is a symptom based call, was patient offered triage? Not Applicable If this is a symptom based call and you were unable to immediately transfer the call to a lorraine bellamy medical care administrator was caller made aware that if at [...] 2019 | Monitor | | [address] | Interrogation | | | | | [place], | (Primary Dx); | | | | | [place] [address] | Pacemaker; | | | | | [phone] | Sinoatrial node | | | | | | dysfunction (HCC) | | | | | | with symptomatic | | | | | | bradycardia | +--------+ + + + + | 08/21/ | Implant | Cardiology | Daljit Singletary, | Remote Device | | 2020 | Monitor | | MD [address] | Interrogation | | | | | [place], | (Primary Dx); | | | | | [place] [address] | Pacemaker; | | | | | [phone] | Sinoatrial node | | | | | | dysfunction (HCC) | | | | | | with symptomatic | | | | | | bradycardia | +--------+ + + + + | 08/21/ | Implant | Cardiology | Daljit Singletary, | Remote Device | | 2019 | Monitor | | MD [address] | Interrogation | | | | | [place], | (Primary Dx); | | | | | [place] [address] | Pacemaker; | | | | | [phone] | Sinoatrial node | | | | | | dysfunction (HCC) | | | | | | with symptomatic | | | | | | bradycardia | +--------+ + + + + | 08/21/ | Implant | Cardiology | Daljit Singletary, | Remote Device | | 2019 | Monitor | | MD [address] | Interrogation | | | | | [place], | (Primary Dx); | | | | | [place] [address] | Pacemaker; | | | | | [phone] | Sinoatrial node | | | | | | dysfunction (HCC) | | | | | | with symptomatic | | | | | | bradycardia | +--------+ + + + + | 08/21/ | Implant | Cardiology | Daljit Singletary, | Remote Device | | 2019 | Monitor | | MD [address] | Interrogation | | | | | [place], | (Primary Dx); | | | | | [place] [address] | Pacemaker; | | | | | [phone] | Sinoatrial node | | | | [...] [address] | | | | | | [place], | | | | | | [place] [address] | | | | | | [phone] | | | | | | | | +--------+ + + + + + + +--------+ + + | Name | Type | Priori | Associated Diagnoses | Order Schedule | | | | ty | | | + + +--------+ + + | Ambulatory Referral | Outpatient | Routin | Colon cancer | Ordered: 01/22/2020 | | to [facility] | Referral | e | screening | | | Gastroenterology | | | | | + + +--------+ + + documented as of this encounter Visit Diagnoses + + | Diagnosis | + + | Colon cancer screening - Primary Special screening for malignant neoplasms, colon | + + | Remote Device Interrogation [...]
--- OUTSIDE RECORDS SUMMARY | ~2020-08-06 | XMS | Encounter Summary ---
Demographics + + + | Address | [id number] [place] [address] [address] | | | [place] [address] | + + + | Home Phone [...] [place] | | | | | [address] | | + + + + + Care Team Providers + +------+ + | Care Turn Down Worker Name | Role | Phone | + +------+ + | Darion Holden DO | PCP | | + +------+ + Reason for Visit +--------+--------+ + | Reason | Onset | Comments | | | Date | | +--------+--------+ + | Other | 11/01/ | | | | 2019 | | +--------+--------+ + Encounter Details +--------+ + + + + | Date | Type | Department | Care Team | Description | +--------+ + + + + | 11/01/ | Telephone | [facility]ive [facility] | Bridgette Rios, | Other | | 2019 | | Center at [address] | MD [address] [facility] | | | | | [address] | [place], [place] | | | | | for Health and | [address] | | | | | [facility] | [phone] | | | | | [place], [place] | | | | | | [address] | | | | | | [phone] | | | +--------+ + + + [...] Telephone Encounter - Malik Alvares RN - 11/01/2019 9:44 AM PSTI called pt back and sp roya to him about symptoms/concerns. Concern: 10+ BMs this morning with severe cramping Onset of symptoms: 2 days ago mild cramping started and got worse and worse until 3 am this morning Fever: no Abdominal pain: 8-9/10 Description of abdominal pain: constant, sharp, cramping, lower midline abdomen Medications taken for abdominal pain: all prescriptions as prescribed with zero relief of s ymtpoms Nausea and/or Vomiting: "not yet" but pt said he is severely nauseous Medications taken for N&V: none Last BM: this am Description of last BM: 100% liquid x 10 since 3 am Abdominal distention: yes, severe Passing gas: yes, moderate amounts Food intake: unable to eat, "everything comes out" Fluid intake: unable to drink Recommendations: Pt advised to go to the ER for evaluation immediately. I called [facility] ER and gave them a heads up. Blanca RN very familiar with Amilcar and took report. She asked for most recent medications list to expedite the process. Medicat ion list faxed to her at [phone], attention MONROE Rios. Dr. Rios informed. Ni Pt verbalized understanding and agreement with plan. elephone Encounter - Netta Alexander - 11/01/2019 9:09 A M PSTPATIENT LEFT VOICE MESSAGE ON 11/01/19 AT 8:04 REGARDING Stating that he needs The MA to call him and that he has had a horrible morning. No other details were given Please return call documented in this enco unter Plan of Treatment Not on filedocumented as of this encounter Visit Diagnoses Not on filedocumented in this encounter
--- OUTSIDE RECORDS SUMMARY | ~2020-08-06 | XMS | Encounter Summary ---
Demographics + + + | Address | [address] | | | [place] [address] | + + + | Home Phone [...] Providers + +------+ + | Care Life Support Technician Name | Role | Phone | [...] + + | Authorized | Specialty | Physical | Diagnoses | Kalichman, | You, Harpal, | | | Services | Medicine and | Obesity, | Kirk Guidry, | [address] | | | Required | Rehabilitatio | unspecified | [address] | [address] | | | | n | classificati | [address] | [place], | | | | | on, | [address] | [place] [address] | | | | | unspecified | [place], [place] | Phone: | | | | | obesity | [address] | [phone] | | | | | type, | Phone: | Fax: | | | | | unspecified | [phone] | [phone] | | | | | whether | Fax: | | | | | | serious | [phone] | | | | | | comorbidity | | | | | | | present | | | | | | | Chronic pain | | | | | | | syndrome | | | | | | | Tired | | | | | | | Smoker Need | | | | | | | for | | | | | | | hepatitis C | | | | | | | screening | | | | | | | test | | | | | | | Marijuana | | | | | | | use Anxiety | | | | | | | about | | | | | | | health | | | | | | | Depression, | | | | | | | unspecified | | | | | | | depression | | | | | | | type | | | | | | | Chronic | | | | | | | narcotic use | | | | | | | Shoulder | | | | | | | pain, | | | | | | | unspecified | | | | | | | chronicity, | | | | | | | unspecified | | | | | | | laterality | | | | | | | Swelling | | | | | | | STD exposure | | | + + + + + + + Reason for Visit + + + | Reason | Comments | + + + | Shoulder Pain | requesting referral for pain clinic | + + + Encounter Details +--------+---------+ + + + | Date | Type | Department | Care Team | Description | +--------+---------+ + + + | 07/11/ | Office | [facility] | Kirk French | Shoulder pain, | | 2019 | Visit | [facility] | MD Brea [address] | unspecified | | | | [facility] [address] | chronicity, | | | | [address] | [place] [address] | unspecified | | | | [place], [place] | [phone] | laterality (Primary | | | | [address] | | Dx); Obesity, | | | | [phone] | | unspecified | | | | | | classification, | | | | | | unspecified obesity | | | | | | type, unspecified | | | | | | whether serious | | | | | | comorbidity present; | | | | | | Chronic pain | | | | | | syndrome; Tired; | | | | | | Smoker; Need for | | | | | | hepatitis C | | | | | | screening test; | | | | | | Marijuana use; | | | | | | Anxiety about | | | | | | health; Depression, | | | | | | unspecified | | | | | | depression type; | | | | | | Chronic narcotic | | | | | | use; Swelling; STD | | | | | | exposure | +--------+---------+ + + + Social History [...] + | Blood Pressure | 138/86 | 07/11/2020 11:15 AM | | | | | PDT | | + + + + + | Pulse | 75 | 07/11/2020 11:15 AM | | | | | PDT | | + + + + + | Temperature | 36.7 C (98.1 F) | 07/11/2020 11:15 AM | | | | | PDT | | + + + + + | Respiratory Rate | 16 | 07/11/2020 11:15 AM | | | | | PDT | | + + + + + | Oxygen Saturation | 97% | 07/11/2020 11:15 AM | | | | | PDT | | + + + + + | Inhaled Oxygen | - | - | | | Concentration | | | | + + + + + | Weight | 120.7 kg (266 lb) | 07/11/2020 11:15 AM | | | | | PDT | | + + + + + | Height | 193 cm (6' 4") | 07/11/2020 11:15 AM | | | | | PDT | | + + + + + | Body Mass Index | 32.38 | 07/11/2020 11:15 AM | | | | | [...] encounter Progress Notes Kirk French MD - 07/11/2020 11:20 AM PDTFormatting of this note might be differen t from the original. Subjective: Patient ID: Moe Bradley Laura is a 60 y.o. male. HPI History: Past Medical History: Diagnosis Date Abdominal pain, unspecified site 07/17/2011 Anginal pain (HCC) Anxiety depression Back pain Bipolar disorder (HCC) Bladder troubles CAD Cannabis abuse Central sleep apnea in conditions classified elsewhere(327.27) 12/15/2010 Chest pain Chronic neck pain Chronic pain syndrome Depression Diarrhea, unspecified type Diverticulosis of colon without diverticulitis Drug addiction in remission (HCC) heroin Duodenitis Ex-smoker Fatigue 09/15/2010 Fatty liver Fibromyalgia Gastroenteritis Hepatitis B infection Hypercholesterolemia Hyperlipidemia Hypertension Hypoglycemia Incontinence Insomnia Kidney stones Left nephrolithiasis 03/2019 Lower back injury 1981 [...] not keep f/u appointments and wasn't treated. Organic insomnia, unspecified 10/09/2010 Pacemaker; Medtronic Peptic ulcer disease Polycythemia Premature ventricular contraction Preventative health care 06/26/2013 LAST PSA:12/16/2010 RESULT:0.14 LAST COLONOSCOPY:02/05/2009 RESULTnormal exam Prostate troubles PUD Sinoatrial node dysfunction (HCC) Sinus bradycardia Sleep apnea Stroke (HCC) Syncope 10/09/2010 Tachycardia Thoracic ascending aortic aneurysm (HCC) Thrombocytopenia (HCC) 08/26/2010 Tobacco user Tuberculosis Ulcerative colitis (HCC) Unintentional weight loss Weight loss Past Surgical History: Procedure Laterality Date ABDOMINAL ADHESION SURGERY ABLATION Bilateral 04/03/2013 x3 Laser APPENDECTOMY 2004 [place] CARDIAC CATHERIZATION 12/25/13 Left CARDIAC CATHERIZATION N/A 01/25/2019 Procedure: CV LHC; Surgeon: Daljit Singletary MD; Location: [facility] CV LAB CARDIAC CATHERIZATION N/A 01/25/2019 Procedure: CV Cor Angio; Surgeon: Daljit Singletary MD; Location: [facility] CV LAB COLONOSCOPY N/A 12/24/2017 Procedure: COLONOSCOPY; Surgeon: Emmanuel Daniel MD; Location: [facility] MEDICAL PROCEDURE UNIT COLONOSCOPY N/A 01/05/2019 Procedure: COLONOSCOPY; Surgeon: Emmanuel Daniel MD; Location: [facility] MEDICAL PROCEDURE UNIT EGD 12/24/2017 HARDWARE REMOVAL KNEE ARTHROSCOPY Bilateral KNEE SURGERY 2003 meniscus-right LAMINECTOMY 1991 L3-4 LUMBAR DISCECTOMY 1991 L3-4 LUMBAR FUSION 01/2011 6 spine fusions NECK SURGERY NECK SURGERY 08/10/2012 Fusion. [place], [place] PACEMAKER PLACEMENT 06/14/2009 [employer]onic ROTATOR CUFF REPAIR Bilateral 03/22/2013 SHOULDER SURGERY Right 05/2019 SINUS SURGERY 1998 SPINAL FUSION STOMACH SURGERY UPPER GASTROINTESTINAL ENDOSCOPY N/A 12/24/2017 Procedure: EGD; Surgeon: Emmanuel Daniel MD; Location: [facility] MEDICAL PROCEDURE UNIT UPPER GASTROINTESTINAL ENDOSCOPY N/A 01/05/2019 Procedure: EGD; Surgeon: Emmanuel Daniel MD; Location: [facility] MEDICAL PROCEDURE UNIT URETEROSCOPY Left 04/13/2019 Procedure: Cystoscopy, Left ureteroscopy with laser lithotripsy, Left ureteral stent place ment; Surgeon: Matthew Uriarte MD; Location: [facility] MAIN OR VASECTOMY Social History Socioeconomic History Marital status: Spouse name: Andreia Number of children: 2 Years of education: 12 Highest education level: Not on file Occupational History Occupation: disabled Employer: [employer] Tobacco Use Smoking status: Former Smoker Years: 40.00 Types: Cigars Quit date: 11/22/2012 Years since quittin.6 Smokeless tobacco: Never Used Tobacco comment: 1 cigar twice a year for 30 (when he went fishing) Previous quit date 02/12/1996. Substance and Sexual Activity Alcohol use: Not Currently Alcohol/week: 7.0 standard drinks Types: 7 Shots of liquor per week Comment: Pt states he started drinking again - Hard alcohol Drug use: No Frequency: 7.0 times per week Types: Marijuana, Methamphetamines, Cocaine Comment: Patient states he quit 11/2016 Sexual activity: Yes Partners: Female Comment: to Andreia Social History Narrative Exercise: Walking and chasing dogs Caffeine: None Living situation: lives at home with Andreia in own home Family History Problem Relation Age of Onset Heart disease Mother Stroke Mother Cancer Father colon, prostate Heart disease Father Heart attack Father Hypertension [...] 81 mg by mouth Daily. atorvaSTATin (LIPITOR) 80 MG tablet Take 1 tablet by mouth nightly. 90 tablet 3 Cinnamon Bark POWD Take by mouth. clonazePAM (KLONOPIN) 1 mg tablet TAKE ONE TABLET BY MOUTH THREE TIMES A DAY NEEDED FOR ANXIETY 90 tablet 0 CYANOCOBALAMIN PO Take by mouth. cyclobenzaprine (FLEXERIL) 10 mg tablet diclofenac (VOLTAREN) 75 mg EC tablet Take 1 tablet by mouth 2 times daily. 60 tablet 1 dicyclomine (BENTYL) 20 MG tablet Take 1 tablet by mouth 3 times daily as needed. Befor e meals 270 tablet 3 diphenhydrAMINE (BENADRYL) 25 MG capsule Take 25 mg by mouth as needed. diphenoxylate-atropine (LOMOTIL) 2.5-0.025 mg per tablet TAKE ONE TABLET BY MOUTH FOUR TIMES A DAY NEEDED FOR DIARRHEA 120 tablet 5 ELDERBERRY PO Take by mouth. Glucose Blood (BLOOD GLUCOSE TEST STRIPS) STRP Test up to 1 times a day as needed ( One touch ) HYDROmorphone (DILAUDID) 4 MG tablet take 1 tablet by mouth every 4 hours if needed for pain hyoscyamine (LEVSIN) 0.[address] ONE TABLET UNDER THE TONGUE EVERY 4 HOURS NEEDED FOR CRAMPING DIARRHEA, GI SPASMS 60 tablet 1 Methylsulfonylmethane [...] ONE TABLET UNDER THE TONGUE EVERY 5 SC NUTES NEEDED FOR CHEST PAIN 250 tablet 0 Big Bar-3 Fatty Acids (SALMON OIL-1000 PO) CAPS, one capsule by mouth daily twice daily ondansetron (ZOFRAN ODT) 4 mg disintegrating tablet Take 4 mg by mouth every 8 hours as needed for Nausea. ONE TOUCH DELICA LANCETS [facility] Check glucose as needed for hypoglycemia 100 each 3 oxyCODONE-acetaminophen (PERCOCET) 5-325 mg per tablet pramoxine-hydrocortisone cream Use up to tid prn 57 g 3 pregabalin (LYRICA) 75 mg capsule Take 1 capsule by mouth 2 times daily. 90 capsule 1 promethazine (PHENERGAN) 12.5 MG tablet 1po tid prn 90 tablet 3 PYRIDOXINE HCL PO Take by mouth. rOPINIrole (REQUIP) 1 mg tablet Take 1 tablet by mouth nightly. 0 traZODone (DESYREL) 150 MG tablet Take 1 tablet by mouth nightly. 30 tablet 0 UNABLE TO FIND Take 1 tablet by mouth Daily. MARINE-D3 UNCODED MEDICATION Diagnosis: Obstructive Sleep Apnea ICD-9: 327.23 Length of Need: 99 Months (Patient not taking: Reported on 05/01/2020) 1 Device 0 valACYclovir (VALTREX) 1 g tablet TAKE ONE TABLET BY MOUTH TWICE A DAY 180 tablet 0 No current facility-administered medications for this visit. Patient's medications, allergies, past medical, surgical, social and family histories were obtained and reviewed as appropriate. Review of Systems Constitutional: Positive for appetite change, fatigue and unexpected weight change. Negativ e for activity change. HENT: Positive for congestion and rhinorrhea. Negative for postnasal drip, sinus pressure a nd sinus pain. Eyes: Negative for photophobia, redness and visual disturbance. Respiratory: Positive for cough and shortness of breath. Negative for apnea and wheezing. Cardiovascular: Negative for chest pain, palpitations and leg swelling. Gastrointestinal: Positive for abdominal distention, abdominal pain, anal bleeding, blood i n stool, constipation, diarrhea, nausea, rectal pain and vomiting. Endocrine: Positive for heat intolerance. Genitourinary: Positive for dysuria. Negative for difficulty urinating, discharge, frequenc y, hematuria, penile pain, scrotal swelling, testicular pain and urgency. Musculoskeletal: Positive for arthralgias, back pain, gait problem, joint swelling and myal gias. Negative for neck pain and neck stiffness. Skin: Negative for rash and wound. Allergic/Immunologic: Positive for environmental allergies. Neurological: Positive for dizziness, weakness, light-headedness and headaches. Negative fo r speech difficulty and numbness. Psychiatric/Behavioral: Positive for decreased concentration, dysphoric mood and sleep dist urbance. Negative for agitation and confusion. The patient is nervous/anxious. Objective: Temp 36.7 C (98.1 F) (Oral) | Ht 1.93 m (6' 4") | BMI 32.07 kg/m Physical Exam Constitutional: General: He is not in acute distress. Appearance: He is well-developed. He is not diaphoretic. Comments: obese HENT: Head: Normocephalic and atraumatic. Nose: [...] 06/02/2019 1907 CREA 0.92 06/02/2019 190 ANIONGAP 13 01/05/2020 Component Value Date/Time CALCIUM 9.6 06/02/2019 190 ALKPHOS 76 06/02/2019 190 AST 35 (H) 06/02/2019 190 ALT 27 06/02/2019 190 TOTALPROTEIN 7.0 06/02/2019 190 ALBUMIN 4.7 06/02/2019 190 BILITOT 0.7 06/02/2019 190 Lab Results Component Value Date EGFR >60 11/25/2018 GLUF 83 11/25/2018 GLOB 2.5 01/05/2020 Lab Results Component Value Date WBC 6.3 06/02/2019 HGB 16.3 06/02/2019 HCT 46.4 06/02/2019 MCV 97.5 06/02/2019 PLT 169 06/02/2019 No results found for: [id number] No results found for: FOLATE No results [...] 06/22/2016 CHOLHDL 3.1 08/08/2013 CHOLHDL 5.5 05/27/2012 Patients pacemaker remote report showed 1 month remaining on battery 06/20 and 07/08 shows < 1 month remaining. Patient's OC/THR appointment needs to be moved up sooner (in next month) Left message for patient to call back. Electronically signed by: Kailey Pruitt, RN 07/10/2020 9:50 AM Patient is requesting a new referral to pain management. He does not want to continue with Dr. Cai. He states he had a reaction when he was placed on Suboxone as well as swelling when he was on Lyrica. He did not feel she really addressed these issues. Patient has now tapered completely off the Lyrica, and has been off for two weeks. Currentl y has no symptoms of swelling. He is seeing a Dr. De who has been managing his pain related to his broken leg, but that will be temporary. He has perhaps two weeks of Vicodin remaining and is scheduled to fo llow up with Dr. De in one month. He is trying to stretch the med out. He also mentannie penaloza taking over the counter meds. Patient is requesting high priority referral to [facility] for pain management. I believe he also had another question about taking Lyrica, but when I called back to clarify this, it went t o voicemail. My guess is he may be wanting to discuss medication options Amilcar reports that he is having swelling in his legs, ankles, calves, hands and face. His sh ortness of breath is still present, not really worse but never gone. He has gained weight a nd feels bloated up. He feels like he swells more when he moves around. He is advised that he should come sooner for an appointment Recent echo: 1. Normal left ventricular size with a mild concentric left ventricular hypertrophy. Left ventricular systolic function is preserved. LVEF is 60 to 65%. 2. Grade 2/pseudonormalization left ventricular diastolic dysfunction. 3. Mildly thickened mitral valve with trace mitral valve regurgitation. 4. Trace aortic valve insufficiency. 5. Mild tricuspid valve regurgitation. 6. Mild ascending aorta dilatation measuring 4.5 cm in diameter. 7. Normal right-sided pressure. 8. Normal IVC with a normal respiratory collapse. 9. When compared to echocardiogram on 11/16/2017, no significant changes. Co hand swelling Co foot swelling Co leg swelling back pain Co shoulder pain Co wants to go to pain clinic On vicoden for foot On PT for shoulder already sees ortho states lyrica helped pain but exacerbated swelling Recent DUI for 'anxiety meds' On OTC THC Also conc re STD exp Plan: ASSESSMENT AND PLAN: I spent 40 minutes face to face dealing with his multiple issues and greater than 50 percent of the time spent on counseling and education. 1. Irritable bowel syndrome. We will defer to his outside specialists. His weight remain s stable. He continues to have constipation and diarrhea. Pathophysiology and treatment op tions were again reviewed. He is pretty much optimized in this regard. 2. Obesity. Would benefit from diet, exercise, weight loss. 3. Shoulder pain. He had questions regarding reverse shoulder replacement. I told him th at I will have to defer to his orthopedist, but based on my knowledge of his condition, I th ink that would be an indicated surgery, and in my personal experience with other patients, I have seen them benefit from that. 4. He is concerned about STD exposure through his girlfriend. Appropriate testing is orde red as requested. 5. Issues with his pacemaker/AICD, due for battery change. He is supposed to be seeing mo s coder, I believe, tomorrow. We will obviously defer on that. 6. He has 1+ peripheral edema. This is probably from the Lyrica. He does report that the Lyrica is helping him, so I am going to let that be and recommend him to continue. 7. Chronic pain. He has been on chronic narcotics. Currently taking narcotics per his or thopedist. I did make a fresh referral to the pain clinic for that as well. documented in th is encounter Plan of Treatment +--------+ + + + + | Date | Type | Specialty | Care Team | Description | +--------+ + + + + | 08/21/ | Implant | Cardiology | Daljit Singletary, | Remote Device | | 2019 | Monitor | | MD [address] | Interrogation | | | | | [place], | (Primary Dx); | | | | | [place] [address] | Pacemaker; | | | | | [phone] | Sinoatrial node | | | | | | dysfunction (HCC) | | | | | | with symptomatic | | | | | | bradycardia | +--------+ + + + + | 08/21/ | Implant | Cardiology | Daljit Singletary, | Remote Device | | 2019 | Monitor | | MD [address] | Interrogation | | | | | [place], | (Primary Dx); | | | | | [place] [address] | Pacemaker; | | | | | [phone] | Sinoatrial node | | | | | | dysfunction (HCC) | | | | | | with symptomatic | | | | | | bradycardia | +--------+ + + + + | 08/21/ | Implant | Cardiology | Daljit Singletary, | Remote Device | | 2020 | Monitor | | MD [address] | Interrogation | | | | | [place], | (Primary Dx); | | | | | [place] [address] | Pacemaker; | | | | | [phone] | Sinoatrial node | | | | | | dysfunction (HCC) | | | | | | with symptomatic | | | | | | bradycardia | +--------+ + + + + | 08/21/ | Implant | Cardiology | Daljit Singletary, | Remote Device | | 2019 | Monitor | | MD [address] | Interrogation | | | | | [place], | (Primary Dx); | | | | | [place] [address] | Pacemaker; | | | | | [phone] | Sinoatrial node | | | | | | dysfunction (HCC) | | | | | | with symptomatic | | | | | | bradycardia | +--------+ + + + + | 08/21/ | Implant | Cardiology | Daljit Singletary, | Remote Device | | 2019 | Monitor | | MD [address] | Interrogation | | | | | [place], | (Primary Dx); | | | | | [place] [address] | Pacemaker; | | | | | [phone] | Sinoatrial node | | | | [...] | | | | | | [address] [place], | | | | | | [place] [id number] | | | | | | [phone] | | | | | | | | +--------+ + + + + + + +--------+ + + | Name | Type | Priori | Associated Diagnoses | Order Schedule | | | | ty | | | + + +--------+ + + | Hepatitis C Ab | Lab | Routin | Need for hepatitis | Expected: 07/11/2020 | | | | e | C screening test | (Approximate), | | | | | | Expires: 07/11/2021 | + + +--------+ + + | C. trachomatis and | Microbiolog | Routin | Obesity, | 1 Occurrences | | N. gonorrhoeae, NAAT | y | e | unspecified | starting 07/11/2020 | | | | | classification, | until 07/11/2021 | | | | | unspecified obesity | | | | | | type, unspecified | | | | | | whether serious | | | | | | comorbidity present | | | | | | Chronic pain | | | | | | syndrome Tired | | | | | | Smoker Need for | | | | | | hepatitis C | | | | | | screening test | | | | | | Marijuana use | | | | | | Anxiety about health | | | | | | Depression, | | | | | | unspecified | | | | | | depression type | | | | | | Chronic narcotic use | | | | | | Shoulder pain, | | | | | | unspecified | | | | | | chronicity, | | | | | | unspecified | | | | | | laterality Swelling | | | | | | STD exposure | | + + +--------+ + + | HIV 1 and 2 Ab, | Lab | Routin | Obesity, | 1 Occurrences | | Reflex | | e | unspecified | starting 07/11/2020 | | | | | classification, | until 07/11/2021 | | | | | unspecified obesity | | | | | | type, unspecified | | | | | | whether serious | | | | | | comorbidity present | | | | | | Chronic pain | | | | | | syndrome Tired | | | | | | Smoker Need for | | | | | | hepatitis C | | | | | | screening test | | | | | | Marijuana use | | | | | | Anxiety about health | | | | | | Depression, | | | | | | unspecified | | | | | | depression type | | | | | | Chronic narcotic use | | | | | | Shoulder pain, | | | | | | unspecified | | | | | | chronicity, | | | | | | unspecified | | | | | | laterality Swelling | | | | | | STD exposure | | + + +--------+ + + | Hepatitis C Ab | Lab | Routin | Obesity, | 1 Occurrences | | | | e | unspecified | starting 07/11/2020 | | | | | classification, | until 07/11/2021 | | | | | unspecified obesity | | | | | | type, unspecified | | | | | | whether serious | | | | | | comorbidity present | | | | | | Chronic pain | | | | | | syndrome Tired | | | | | | Smoker Need for | | | | | | hepatitis C | | | | | | screening test | | | | | | Marijuana use | | | | | | Anxiety about health | | | | | | Depression, | | | | | | unspecified | | | | | | depression type | | | | | | Chronic narcotic use | | | | | | Shoulder pain, | | | | | | unspecified | | | | | | chronicity, | | | | | | unspecified | | | | | | laterality Swelling | | | | | | STD exposure | | + + +--------+ + + | RPR Quant | Lab | Routin | Obesity, | 1 Occurrences | | | | e | unspecified | starting 07/11/2020 | | | | | classification, | until 07/11/2021 | | | | | unspecified obesity | | | | | | type, unspecified | | | | | | whether serious | | | | | | comorbidity present | | | | | | Chronic pain | | | | | | syndrome Tired | | | | | | Smoker Need for | | | | | | hepatitis C | | | | | | screening test | | | | | | Marijuana use | | | | | | Anxiety about health | | | | | | Depression, | | | | | | unspecified | | | | | | depression type | | | | | | Chronic narcotic use | | | | | | Shoulder pain, | | | | | | unspecified | | | | | | chronicity, | | | | | | unspecified | | | | | | laterality Swelling | | | | | | STD exposure | | + + +--------+ + + + + +--------+ + + | Name | Type | Priori | Associated Diagnoses | Order Schedule | | | | ty | | | + + +--------+ + + | Ambulatory referral | Outpatient | Routin | Obesity, | Ordered: 07/11/2020 | | to Pain Clinic | Referral | e | unspecified | | | | | | classification, | | | | | | unspecified obesity | | | | | | type, unspecified | | | | | | whether serious | | | | | | comorbidity present | | | | | | Chronic pain | | | | | | syndrome Tired | | | | | | Smoker Need for | | | | | | hepatitis C | | | | | | screening test | | | | | | Marijuana use | | | | | | Anxiety about health | | | | | | Depression, | | | | | | unspecified | | | | | | depression type | | | | | | Chronic narcotic use | | | | | | Shoulder pain, | | | | | | unspecified | | | | | | chronicity, | | | | | | unspecified | | | | | | laterality Swelling | | | | | | STD exposure | | + + +--------+ + + documented as of this encounter Visit Diagnoses + + | Diagnosis | + + | Shoulder pain, unspecified chronicity, unspecified laterality - Primary | + + | Obesity, unspecified classification, unspecified obesity type, unspecified whether | | serious comorbidity present | + + | Chronic pain syndrome | + + | Tired Other malaise and fatigue | + + | Smoker Tobacco use disorder | + + | Need for hepatitis C screening test Special screening examination for other specified | | viral diseases | + + | Marijuana use Cannabis abuse, unspecified | + + | Anxiety about health | + + | Depression, unspecified depression type | + + | Chronic narcotic use Other, mixed, or unspecified nondependent drug abuse, | | unspecified | + + | Swelling Edema | + + | STD exposure | + + | Remote Device Interrogation [...]
--- OUTSIDE RECORDS SUMMARY | ~2020-08-06 | XMS | Encounter Summary ---
Demographics + + + | Address | [address] | | | [place] [address] | + + + | Home Phone [...] Providers + +------+ + | Care Tube Pusher Name | Role | Phone | + +------+ + PCP | Unavailable | + +------+ + Encounter Details +--------+ + + + + | Date | Type | Department | Care Team | Description | +--------+ + + + + | 09/29/ | Hospital | [facility] | | | | 1995 | Encounter | [facility] | | | | | | CENTER [address] | | | | | | [place] | | | | | | [address] | | | | | | [phone] | | | +--------+ + + + [...] Monitor | | MD [address] | Interrogation | | | | | [place], | (Primary Dx); | | | | | [place] [address] | Pacemaker; | | | | | [phone] | Sinoatrial node | | | | | | dysfunction (HCC) | | | | | | with symptomatic | | | | | | bradycardia | +--------+ + + + + | 08/21/ | Implant | Cardiology | Daljit Singletary, | Remote Device | | 2019 | Monitor | | MD [address] | Interrogation | | | | | [place], | (Primary Dx); | | | | | [place] [address] | Pacemaker; | | | | | [phone] | Sinoatrial node | | | | | | dysfunction (HCC) | | | | | | with symptomatic | | | | | | bradycardia | +--------+ + + + + | 08/21/ | Implant | Cardiology | Daljit Singletary, | Remote Device | | 2019 | Monitor | | MD [address] | Interrogation | | | | | [place], | (Primary Dx); | | | | | [place] [address] | Pacemaker; | | | | | [phone] | Sinoatrial node | | | | | | dysfunction (HCC) | | | | | | with symptomatic | | | | | | bradycardia | +--------+ + + + + | 08/21/ | Implant | Cardiology | Daljit Singletary, | Remote Device | | 2019 | Monitor | | MD [address] | Interrogation | | | | | [place], | (Primary Dx); | | | | | [place] [address] | Pacemaker; | | | | | [phone] | Sinoatrial node | | | | | | dysfunction (HCC) | | | | | | with symptomatic | | | | | | bradycardia | +--------+ + + + + | 08/21/ | Implant | Cardiology | Daljit Singletary, | Remote Device | | 2019 | Monitor | | MD [address] | Interrogation | | | | | [place], | (Primary Dx); | | | | | [place] [address] | Pacemaker; | | | | | [phone] | Sinoatrial node | | | | [...] | | | | | | [place] [address] | | | | | | [phone] | | | | | | | | +--------+ + + + + documented as of this encounter Visit Diagnoses Not on filedocumented in this encounter"
--- OUTSIDE RECORDS SUMMARY | ~2020-08-06 | XMS | Encounter Summary ---
Demographics + + + | Address | [address] | | | [place] [address] | + + + | Home Phone [...] Team Providers + +------+ + | Care Oyster Culler Name | Role | Phone | + [...] + + | 03/02/ | Emergency | [facility] | Lizbeth Green | Situational stress | | 2013 | | [facility] | DO Nicole Fink | (Primary Dx) | | | | CENTER [address] | [place], [place] | | | | | [place], [place] | [address] | | | | | [address] | | | | | | [phone] | | | +--------+ + + + [...] + documented in this encounter Discharge Instructions Ama Alonso RN - 03/02/2014Take the ativan as needed You may take an extra clonidine for elevated BP Keep follow up appointment with DR Brasher IF you need a new doc you can try over at [facility] documented in this encounter Medications [...] + + + +---------+ + + | [place]-3 Fatty | CAPS, one capsule by | [...] up to | 20 | 0 | 04/11/20 | | | 1 mg tablet | [...] documented as of this encounter ED Notes Lizbeth Green MD - 03/03/2014 10:47 AM PDTFormatting of this note might be diffe rent from the original. eMERGENCY dEPARTMENT eNCOUnter CHIEF COMPLAINT Chief Complaint Patient presents with Hypertension Shortness of Breath HPI Moe Sanchez is a 54 y.o. male who presents with chief complaint of elevated bl ood pressure. The patient has had multiple workups in the last few months. He had a Persan brooke stress test that showed possible ischemia. He then went on to have a cardiac cath with Dr. Brasher which was essentially normal. He's been taking all of his routine medications and states he just feels terrible. Last night he went to [facility] because he was continuing to h ave persistent chest pain. 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 The patient's medications were changed and he was als o placed on clonidine. He was advised that if his blood pressure was elevated he should zeynep e an extra clonidine. The patient states his blood pressure has been elevated today so he t ook one of his clonidine. Upon arrival to the emergency department his blood pressure is no rmal. The patient states that he's been undergoing a lot of stress and wonders if this is d riving up his blood pressure. There have been a lot of issues regarding family will and a l ot of angst and turmoil between family members. The patient states he is just about to just give up the whole thing to give everybody the money because he is tired of the whole thing. He is also completely off narcotics and has been off of them for now 6 weeks. He thinks t hat this may be also contributing to his stress. He has no desire to go back on them PAST MEDICAL HISTORY Past Medical History Diagnosis [...] Medications AMLODIPINE (NORVASC) 5 MG TABLET Take 5 mg by mouth Daily. ASCORBIC ACID (VITAMIN C) 1000 MG TABLET Take 1,000 mg by mouth Daily. ASPIRIN 81 MG TABLET Take 81 mg by mouth Daily. CLONIDINE (CATAPRES) 0.2 MG TABLET Take 0.2 mg by mouth EVERY 4 TO 6 HOURS NEEDED. DIAZEPAM (VALIUM) 5 MG TABLET Take 2.5 [...] TABLET Take 1 tablet by mouth Daily. MAGNESIUM 500 MG CAPS Take 500 mg by mouth Daily. MELATONIN TABS, at bedtime as needed METOPROLOL (TOPROL-XL) 200 MG 24 HR TABLET TAKE ONE TABLET BY MOUTH EVERY DAY MISC NATURAL PRODUCTS (OSTEO BI-FLEX/5-LOXIN ADVANCED PO) Take [...] MISC Check glucose as needed for hypoglycemia PRAVASTATIN (PRAVACHOL) 40 MG TABLET TAKE ONE TABLET BY MOUTH EVERY DAY PROMETHAZINE (PHENERGAN) 25 MG TABLET Take 25 [...] Andreia in own home REVIEW OF SYSTEMS Review of systems is negative except as mentioned in the HPI PHYSICAL EXAM VITAL SIGNS: (first vital signs):Temp: 35.8 C (96.5 F) Pulse: 73 Resp: 14 SpO2: 98 % BP: 131/77 mmHg Physical Exam Nursing note and vitals reviewed. Constitutional: He is oriented to person, place, and time. He appears well-developed and we ll-nourished. Neck: No JVD present. Cardiovascular: Normal rate, regular rhythm and normal heart sounds. Pulmonary/Chest: Effort normal and breath sounds normal. Abdominal: Soft. Bowel sounds are normal. Neurological: He is alert and oriented to person, place, and time. Skin: Skin is warm and dry. Psychiatric: He has a normal mood and affect. ED COURSE & MEDICAL DECISION MAKING Pertinent Labs & Imaging studies reviewed. (See chart for details) The patient was seen and evaluated. He is not complaining of any chest pain or shortness o f breath. He is just worried because his blood pressure has been high. He is also feeling very stressed and anxious. I reviewed his recent record. He has had a stress test as well as a cardiac catheterization and also an aortogram. There's been no emergent process going on tonight for which we need to do any further studies. The patient has never tried any hermilo azepam or Ativan for his stress. At this point with no chest pain or shortness of breath no other symptoms and normal vital signs I don't think we need to do further studies tonight. We had a discussion about stress reduction and I offered him some Ativan. The patient drov e himself so as not able to have any here in the emergency department I will give him a take home pack and a prescription. The patient is comfortable with this plan has appointment to see Dr. Brasher on Wednesday. He is to continue his current medications and supplement with c lonidine if his blood pressure is elevated Last Set of Vital Signs: Temp: 35.8 C (96.5 F) Pulse: 73 Resp: 14 SpO2: 98 % BP: 131/ 77 mmHg FINAL IMPRESSION 1. Situational stress New Prescriptions LORAZEPAM (ATIVAN) 1 MG TABLET 1/2 to 1 tab up to three times per day prn Follow-up Information Follow up with Daljit Singletary MD. On 03/07/2014. Contact information: [address] [place] [address], Cardiology [address] [facility] [address] Lizbeth Green MD 03/03/14 1510 Ama Campbell RN - 03/02/2014 6:37 PM PDTPatient dc's home, RX, pt verbalized understan ding documented in thi s encounter Miscellaneous Notes Plan of Care - ONBASE SCAN WAMT - 03/05/2014 12:00 AM PDT D Triage Notes - Ivanna Hernandez RN - 03/02/2014 5:23 PM PDT Pt c/o increased BP & SOB today, feeling very tired. Seen in [facility] last week for same compl aint, seen last night [place] for chest pain (sharp in quality). documented in this encounter Plan of Treatment +--------+ + + + + | Date | Type | Specialty | Care Team | Description | +--------+ + + + + | 08/21/ | Implant | Cardiology | Daljit Singletary, | Remote Device | | 2019 | Monitor | | MD [address] | Interrogation | | | | | [place], | (Primary Dx); | | | | | [place] [address] | Pacemaker; | | | | | [phone] | Sinoatrial node | | | | | | dysfunction (HCC) | | | | | | with symptomatic | | | | | | bradycardia | +--------+ + + + + | 08/21/ | Implant | Cardiology | Daljit Singletary, | Remote Device | | 2019 | Monitor | | MD [address] | Interrogation | | | | | [place], | (Primary Dx); | | | | | [place] [address] | Pacemaker; | | | | | [phone] | Sinoatrial node | | | | | | dysfunction (HCC) | | | | | | with symptomatic | | | | | | bradycardia | +--------+ + + + + | 08/21/ | Implant | Cardiology | Daljit Singletary, | Remote Device | | 2019 | Monitor | | MD [address] | Interrogation | | | | | [place], | (Primary Dx); | | | | | [place] [address] | Pacemaker; | | | | | [phone] | Sinoatrial node | | | | | | dysfunction (HCC) | | | | | | with symptomatic | | | | | | bradycardia | +--------+ + + + + | 08/21/ | Implant | Cardiology | Daljit Singletary, | Remote Device | | 2019 | Monitor | | MD [address] | Interrogation | | | | | [place], | (Primary Dx); | | | | | [place] [address] | Pacemaker; | | | | | [phone] | Sinoatrial node | | | | | | dysfunction (HCC) | | | | | | with symptomatic | | | | | | bradycardia | +--------+ + + + + | 08/21/ | Implant | Cardiology | Daljit Singletary, | Remote Device | | 2019 | Monitor | | MD [address] | Interrogation | | | | | [place], | (Primary Dx); | | | | | [place] [address] | Pacemaker; | | | | | [phone] | Sinoatrial node | | | | [...] [address] | | | | | | [place], | | | | | | [place] [address] | | | | | | [phone] | | | | | | | | +--------+ + + + + documented as of this encounter Visit Diagnoses + + | Diagnosis | + + | Situational stress - Primary Other psychological or physical stress, not elsewhere | | classified | + + | Remote Device Interrogation [...]
--- OUTSIDE RECORDS SUMMARY | ~2020-08-06 | XMS | Encounter Summary ---
Demographics + + + | Address | [address] | | | [place] [address] | + + + | Home Phone [...] Team Providers + +------+ + | Care Marshmallow Runner Name | Role | Phone | + +------+ + | Michael Amanda DO | PCP | | + +------+ + Reason for Visit +--------+--------+ + | Reason | Onset | Comments | | | Date | | +--------+--------+ + | Other | 10/04/ | Records sent | | | 2012 | | +--------+--------+ + Encounter Details +--------+ + + + + | Date | Type | Department | Care Team | Description | +--------+ + + + + | 10/04/ | [facility] | [facility] | Daljit Singletary, | Other (Records sent) | | 2012 | | CARDIOLOGY [address] [place] | | | | | [place], | [place], | | | | | [place] [address] | [place] [address] | | | | | [phone] | [phone] | | | | | | | [...] Telephone Encounter - Darlene Tirado RN - 10/04/2013 1:04 PM PSTTracings from Device In terogation on 09/05/13 faxed ...........................................Darlene Tirado RN on 10/04/2013 at 13:04 documented in this encounter Plan of Treatment [...] Dx); | | | | | [place] [address] | Pacemaker; | | | | | [phone] | Sinoatrial node | | | | | | dysfunction (HCC) | | | | | | with symptomatic | | | | | | bradycardia | +--------+ + + + + | 08/21/ | Implant | Cardiology | Daljit Singletary, | Remote Device | | 2019 | Monitor | | MD [address] [place] | Interrogation | | | | | [place], | (Primary Dx); | | | | | [place] [address] | Pacemaker; | | | | | [phone] | Sinoatrial node | | | | | | dysfunction (HCC) | | | | | | with symptomatic | | | | | | bradycardia | +--------+ + + + + | 08/21/ | Implant | Cardiology | Daljit Singletary, | Remote Device | | 2019 | Monitor | | MD [address] [place] | Interrogation | | | | | [place], | (Primary Dx); | | | | | [place] [address] | Pacemaker; | | | | | [phone] | Sinoatrial node | | | | | | dysfunction (HCC) | | | | | | with symptomatic | | | | | | bradycardia | +--------+ + + + + | 08/21/ | Implant | Cardiology | aDljit Singletary, | Remote Device | | 2020 | Monitor | | MD [address] [place] | Interrogation | | | | | [place], | (Primary Dx); | | | | | [place] [address] | Pacemaker; | | | | | [phone] | Sinoatrial node | | | | | | dysfunction (HCC) | | | | | | with symptomatic | | | | | | bradycardia | +--------+ + + + + | 08/21/ | Implant | Cardiology | Daljit Singletary, | Remote Device | | 2020 | Monitor | | MD [address] [place] | Interrogation | | | | | [place], | (Primary Dx); | | | | | [place] [address] | Pacemaker; | | | | | [phone] | Sinoatrial node | | | | [...] | | | | | | [place] [address] | | | | | | [phone] | | | | | | | | +--------+ + + + + documented as of this encounter Visit Diagnoses Not on filedocumented in this encounter"
--- OUTSIDE RECORDS SUMMARY | ~2020-08-06 | XMS | Encounter Summary ---
Demographics + + + | Address | [address] | | | [place] [address] | + + + | Home Phone [...] Providers + +------+ + | Care Administrative Clerk Name | Role | Phone | + +------+ + | Kirk French MD | PCP | | + +------+ + Encounter Details +--------+ + + + + | Date | Type | Department | Care Team | Description | +--------+ + + + + | 11/17/ | Telephone | [facility] | Kirk French | | | 2019 | | MD Eva MARIO | | | | | PRIMARY CARE [address] | | | | | [address] | [place] [address] | | | | | [place], [place] | [phone] | | | | | [address] | | | | | | [phone] | | | +--------+ + + + [...] this encounter Miscellaneous Notes Telephone Encounter - Nelli Broussard - 12/06/2019 12:47 PM PSTDisregarded per Johanna at [facility] elephone Encounter - Geri Bear Automatic Line Set Up Mechanic - 11/24/2019 12:20 PM PSTsee elephone Encounter - Nadeem French MD - 11/24/2019 12:19 PM PSTDefer to his business system consultant, margaux le procedeu re elephone Encou nter - Geri Bear Automatic Line Set Up Mechanic - 11/24/2019 11:44 AM PSTPlease adviseElectronicall y signed by Geri Bear Automatic Line Set Up Mechanic at 11/24/2019 11:44 AM PSTTelephone Encounter - Shelley Hess - 11/17/2019 2:37 PM PSTProvider: Dr. Manolo Valadez called needing a recommendation for where patient can get a capsules endoscopy do ne. Caller: Campos Relationship to patient:[facility] Please call back at [phone] Can a Detailed VM be left on this number: yes Shelley Hess documented in this encount er Plan of Treatment +--------+ + + + + | Date | Type | Specialty | Care Team | Description | +--------+ + + + + | 08/21/ | Implant | Cardiology | Daljit Singletary, | Remote Device | | 2019 | Monitor | | MD [address] [place] | Interrogation | | | | | [place], | (Primary Dx); | | | | | [place] [address] | Pacemaker; | | | | | [phone] | Sinoatrial node | | | | | | dysfunction (HCC) | | | | | | with symptomatic | | | | | | bradycardia | +--------+ + + + + | 08/21/ | Implant | Cardiology | Daljit Singletary, | Remote Device | | 2020 | Monitor | | MD [address] | Interrogation | | | | | [place], | (Primary Dx); | | | | | [place] [address] | Pacemaker; | | | | | [phone] | Sinoatrial node | | | | | | dysfunction (HCC) | | | | | | with symptomatic | | | | | | bradycardia | +--------+ + + + + | 08/21/ | Implant | Cardiology | Daljit Singletary, | Remote Device | | 2019 | Monitor | | MD [address] [place] | Interrogation | | | | | [place], | (Primary Dx); | | | | | [place] [address] | Pacemaker; | | | | | [phone] | Sinoatrial node | | | | | | dysfunction (HCC) | | | | | | with symptomatic | | | | | | bradycardia | +--------+ + + + + | 08/21/ | Implant | Cardiology | Daljit Singletary, | Remote Device | | 2019 | Monitor | | MD [address] | Interrogation | | | | | [place], | (Primary Dx); | | | | | [place] [address] | Pacemaker; | | | | | [phone] | Sinoatrial node | | | | | | dysfunction (HCC) | | | | | | with symptomatic | | | | | | bradycardia | +--------+ + + + + | 08/21/ | Implant | Cardiology | Daljit Singletary, | Remote Device | | 2019 | Monitor | | MD [address] [place] | Interrogation | | | | | [place], | (Primary Dx); | | | | | [place] [address] | Pacemaker; | | | | | [phone] | Sinoatrial node | | | | [...] | | | | | | [place], | | | | | | [place] [address] | | | | | | [phone] | | | | | | | | +--------+ + + + + documented as of this encounter Visit Diagnoses Not on filedocumented in this encounter"
--- OUTSIDE RECORDS SUMMARY | ~2020-08-06 | XMS | Encounter Summary ---
Demographics + + + | Address | [address] | | | [place] [address] | + + + | Home Phone [...] Team Providers + +------+ + | Care Middle School Math Teacher Name | Role | Phone | [...] + + | 06/26/ | Office | [facility] | MihaiJacek, | Diplopia (Primary | | 2012 | Visit | [facility] | [address] | Dx); Symptomatic | | | | [address] | [place] | PVCs; Hypertension | | | | [place], [place] | [address] | | | | | [address] | | | | | | [phone] | | | +--------+---------+ + + + [...] Double vision will affect your ability to crackling press operator distance. This means it will be [...] or, difficulty with vision, speech or walking [id number] [facility], [address] [place] [address], [place] [address]. All rights reserve d. This information is [...] from his pain clinic visit in the [facility] on Wednesday or he developed [...] double vision. He was evaluated by Dr Courtney and had a normal eye exam, nor mal visual penaloza, no ocular pathology, vision 20/20 bilaterally. States he was told to "se e his doctor immediately." When asked why he no-showed on Wednesday with me, he thinks maybe h e overslept. No fever, eye pain, vision loss, [...] home and at other specialty clinic visits. Haleigh rodarte does need a refill of diltiazem, [...] tablet by mouth Daily. 30 tablet 6 [place]-3 Fatty Acids (SALMON OIL-1000 PO) CAPS, one [...] 2019 | Monitor | | [address] | Interrogation | | | | | [place], | (Primary Dx); | | | | | [place] [address] | Pacemaker; | | | | | [phone] | Sinoatrial node | | | | | | dysfunction (HCC) | | | | | | with symptomatic | | | | | | bradycardia | +--------+ + + + + | 08/21/ | Implant | Cardiology | Daljit Singletary, | Remote Device | | 2019 | Monitor | | MD [address] [place] | Interrogation | | | | | [place], | (Primary Dx); | | | | | [place] [address] | Pacemaker; | | | | | [phone] | Sinoatrial node | | | | | | dysfunction (HCC) | | | | | | with symptomatic | | | | | | bradycardia | +--------+ + + + + | 08/21/ | Implant | Cardiology | Daljit Singletary, | Remote Device | | 2019 | Monitor | | MD [address] | Interrogation | | | | | [place], | (Primary Dx); | | | | | [place] [address] | Pacemaker; | | | | | [phone] | Sinoatrial node | | | | | | dysfunction (HCC) | | | | | | with symptomatic | | | | | | bradycardia | +--------+ + + + + | 08/21/ | Implant | Cardiology | Daljit Singletary, | Remote Device | | 2020 | Monitor | | MD [address] | Interrogation | | | | | [place], | (Primary Dx); | | | | | [place] [address] | Pacemaker; | | | | | [phone] | Sinoatrial node | | | | | | dysfunction (HCC) | | | | | | with symptomatic | | | | | | bradycardia | +--------+ + + + + | 08/21/ | Implant | Cardiology | JoshcrispinDaljit villarreal, | Remote Device | | 2020 | Monitor | | MD [address] | Interrogation | | | | | [place], | (Primary Dx); | | | | | [place] [address] | Pacemaker; | | | | | [phone] | Sinoatrial node | | | | [...] | | | | | | [place], | | | | | | [place] [address] | | | | | | [phone] | | | | | | | [...] | [facility] | [address] | [place] | [phone] | | [facility] | | [address] | | | - LABORATORY | | | | + + + + + | [facility] | [address] | [place] | | | [facility] | | [id number] | | | - LABORATORY | | [...] | [facility] | [address] | [place] | [phone] | | [facility] | | [address] | | | - LABORATORY | | | | + + + + + | [facility] | [address] | [place], [place] | | | [facility] | | [address], [facility] | | | - LABORATORY | | [...] | [facility] | | | | [facility] | | MEDICAL | | | [...] | [facility] | [address] | [place] | [phone] | | [facility] | | [address] | | | - LABORATORY | | | | + + + + + | [facility] | [address] | [place], [place] | | | [facility] | | [id number] | | | - LABORATORY | | [...]
--- OUTSIDE RECORDS SUMMARY | ~2020-08-06 | XMS | Encounter Summary ---
Demographics + + + | Address | [address] | | | [place] [address] | + + + | Home Phone [...] Providers + +------+ + | Care Brick Tender Name | Role | Phone | [...] + + | 02/15/ | Office | [facility] | Jay Cohn PA | DIDIER (obstructive | | 2012 | Visit | SLEEP DISORDER [address] | [address] | sleep apnea) | | | | [address] [place] [address] [place] | [place] | (Primary Dx) | | | | [place] [address] | [address] | | | | | [phone] | | | +--------+---------+ + + + [...] AM PDTGo to [facility] for replacement equipment including: Nasal pillows or [...] pillows obtained from: [facility] in [place] pressure is: 13 cm CPAP download shows [...] to go to [facility] in [place] to replace his equipment, but it had [...] to go to [facility] [place] et [place] new mask and filter. He is to work toward wearing his CPAP 100% of the time he is asle ep. I will follow up again in 1 month, sooner prn. Fifteen minutes were spent xqal-cf-hefy, wi th the majority of time spent in counseling. Jay Cohn PA-C cc: MD Michael Snyder, DO documented in this enco unter Plan [...] Interrogation | | | | | [place], | (Primary Dx); | | | | | [place] [address] | Pacemaker; | | | | | [phone] | Sinoatrial node | | | | | | dysfunction (HCC) | | | | | | with symptomatic | | | | | | bradycardia | +--------+ + + + + | 08/21/ | Implant | Cardiology | Daljit Singletary, | Remote Device | | 2019 | Monitor | | MD [address] | Interrogation | | | | | [place], | (Primary Dx); | | | | | [place] [address] | Pacemaker; | | | | | [phone] | Sinoatrial node | | | | | | dysfunction (HCC) | | | | | | with symptomatic | | | | | | bradycardia | +--------+ + + + + | 08/21/ | Implant | Cardiology | Daljit Singletary, | Remote Device | | 2019 | Monitor | | MD [address] | Interrogation | | | | | [place], | (Primary Dx); | | | | | [place] [address] | Pacemaker; | | | | | [phone] | Sinoatrial node | | | | | | dysfunction (HCC) | | | | | | with symptomatic | | | | | | bradycardia | +--------+ + + + + | 08/21/ | Implant | Cardiology | Daljit Singletary, | Remote Device | | 2020 | Monitor | | MD [address] | Interrogation | | | | | [place], | (Primary Dx); | | | | | [place] [address] | Pacemaker; | | | | | [phone] | Sinoatrial node | | | | | | dysfunction (HCC) | | | | | | with symptomatic | | | | | | bradycardia | +--------+ + + + + | 08/21/ | Implant | Cardiology | Daljit Singletary, | Remote Device | 2019 | Monitor | | [address] | Interrogation | | | | | [place], | (Primary Dx); | | | | | [place] [address] | Pacemaker; | | | | | [phone] | Sinoatrial node | | | | [...] | | | | | [place], | | | | | | [place] [address] | | | | | | [phone] | | | | | | | [...]
--- OUTSIDE RECORDS SUMMARY | ~2020-08-06 | XMS | Encounter Summary ---
Demographics + + + | Address | [address] | | | [place] [address] | + + + | Home Phone [...] + +------+ + | Care Real Estate Internship Name | Role | Phone | [...] + + | 01/03/ | Office | [facility] | Silvia, | CAD (coronary artery | | 2012 | Visit | CARDIOLOGY [address] | Janeen MEDICAL EDUCATOR [address] | disease) (Primary | | | | [place], | [place], | Dx); Bradycardia; | | | | [place] [address] | [place] [address] | HTN (hypertension); | | | | [phone] | [phone] | Lightheadedness | | | | | [...] a 52 y.o. male. PCP: Michael BOO Meo Sanchez is a 52 y.o. male with [...] tablet Take 1,000 mg by mouth Daily. [place]-3 Fatty Acids (SALMON OIL-1000 PO) CAPS, one [...] himself t o the emergency department at [facility] in [place], [place]. EKG showed normal s inus rhythm [...] Refer patient to an electrophysiology specialist in [place] for further evaluation for P VC's ablation. I have given verbal instructions and written material for patient to read mo re about the procedure. 2. Check blood pressure and pulse twice daily for two weeks and return the log to our offic e. 3. Followup appointment after patient's appointment with bankruptcy law specialist/ablation. I, PARISA Russell, saw this patient under the direct supervision of Daljit Singletary MD Portions of this report were transcribed using voice recognition software. Every effort wa s made to ensure accuracy; however, inadvertent computerized winder helper errors may be pre sent. documented in this encounter Plan of Treatment +--------+ + + + + | Date | Type | Specialty | Care Team | Description | +--------+ + + + + | 08/21/ | Implant | Cardiology | Daljit Singletary, | Remote Device | | 2019 | Monitor | | [address] | Interrogation | | | | | [place], | (Primary Dx); | | | | | [place] [address] | Pacemaker; | | | | | [phone] | Sinoatrial node | | | | | | dysfunction (HCC) | | | | | | with symptomatic | | | | | | bradycardia | +--------+ + + + + | 08/21/ | Implant | Cardiology | Daljit Singletary, | Remote Device | | 2019 | Monitor | | MD [address] | Interrogation | | | | | [place], | (Primary Dx); | | | | | [place] [address] | Pacemaker; | | | | | [phone] | Sinoatrial node | | | | | | dysfunction (HCC) | | | | | | with symptomatic | | | | | | bradycardia | +--------+ + + + + | 08/21/ | Implant | Cardiology | Daljit Singletary, | Remote Device | | 2019 | Monitor | | MD [address] | Interrogation | | | | | [place], | (Primary Dx); | | | | | [place] [address] | Pacemaker; | | | | | [phone] | Sinoatrial node | | | | | | dysfunction (HCC) | | | | | | with symptomatic | | | | | | bradycardia | +--------+ + + + + | 08/21/ | Implant | Cardiology | Daljit Singletary, | Remote Device | | 2020 | Monitor | | MD [address] | Interrogation | | | | | [place], | (Primary Dx); | | | | | [place] [address] | Pacemaker; | | | | | [phone] | Sinoatrial node | | | | | | dysfunction (HCC) | | | | | | with symptomatic | | | | | | bradycardia | +--------+ + + + + | 08/21/ | Implant | Cardiology | Daljit Singletary, | Remote Device | | 2020 | Monitor | | MD [address] | Interrogation | | | | | [place], | (Primary Dx); | | | | | [place] [address] | Pacemaker; | | | | | [phone] | Sinoatrial node | | | | [...] | | | | | | [place] [address] | | | | | | [phone] | | | | | | | | +--------+ + + + + documented as of this encounter Visit Diagnoses + + | Diagnosis | + + | CAD (coronary artery disease) - Primary Coronary atherosclerosis of unspecified type | | of vessel, [place] or graft | + + | Bradycardia Other specified cardiac dysrhythmias | + + | HTN (hypertension) Unspecified essential hypertension | + + | Lightheadedness Dizziness and giddiness | + + | Remote Device Interrogation [...]
--- OUTSIDE RECORDS SUMMARY | ~2020-08-06 | XMS | Encounter Summary ---
Demographics + + + | Address | [address] | | | [place] [address] | + + + | Home Phone [...] Team Providers + +------+ + | Care Micromatic Hone Operator Name | Role | Phone | + +------+ + | Kirk French MD | PCP | | + +------+ + Reason for Visit +--------+--------+ + | Reason | Onset | Comments | | | Date | | +--------+--------+ + | Other | 03/27/ | Missed [facility] | | | 2020 | | +--------+--------+ + Encounter Details +--------+ + + + + | Date | Type | Department | Care Team | Description | +--------+ + + + + | 03/27/ | Telephone | [facility] | SunshinecherelleDaljit, | Other (Missed | | 2019 | | CARDIOLOGY [address] | [facility]) | | | | [place], | [place], | | | | | [place] [address] | [place] [address] | | | | | [phone] | [phone] | | | | | | | [...] Telephone Encounter - Kailey Pruitt RN - 03/27/2020 9:12 AM PDTLeft message for patient t o let him know we didn't receive 03/26/20 pacemaker report, requested he send one in. Rob dunn signed by: Kailey Pruitt RN 03/27/2020 9:13 AM documented in this encounter Plan of Treatment +--------+ + + + + | Date | Type | Specialty | Care Team | Description | +--------+ + + + + | 08/21/ | Implant | Cardiology | Daljit Sinlgetary, | Remote Device | | 2019 | Monitor | | [address] | Interrogation | | | | | [place], | (Primary Dx); | | | | | [place] [address] | Pacemaker; | | | | | [phone] | Sinoatrial node | | | | | | dysfunction (HCC) | | | | | | with symptomatic | | | | | | bradycardia | +--------+ + + + + | 08/21/ | Implant | Cardiology | Daljit Singletary, | Remote Device | | 2019 | Monitor | | [address] | Interrogation | | | | | [place], | (Primary Dx); | | | | | [place] [address] | Pacemaker; | | | | | [phone] | Sinoatrial node | | | | | | dysfunction (HCC) | | | | | | with symptomatic | | | | | | bradycardia | +--------+ + + + + | 08/21/ | Implant | Cardiology | Daljit Singletary, | Remote Device | | 2020 | Monitor | | MD [address] | Interrogation | | | | | [place], | (Primary Dx); | | | | | [place] [address] | Pacemaker; | | | | | [phone] | Sinoatrial node | | | | | | dysfunction (HCC) | | | | | | with symptomatic | | | | | | bradycardia | +--------+ + + + + | 08/21/ | Implant | Cardiology | Daljit Singletary, | Remote Device | | 2019 | Monitor | | MD [address] | Interrogation | | | | | [place], | (Primary Dx); | | | | | [place] [address] | Pacemaker; | | | | | [phone] | Sinoatrial node | | | | | | dysfunction (HCC) | | | | | | with symptomatic | | | | | | bradycardia | +--------+ + + + + | 08/21/ | Implant | Cardiology | Daljit Singletary, | Remote Device | | 2019 | Monitor | | MD [address] | Interrogation | | | | | [place], | (Primary Dx); | | | | | [place] [address] | Pacemaker; | | | | | [phone] | Sinoatrial node | | | | [...] | | | | | | [place] [address] | | | | | | [phone] | | | | | | | | +--------+ + + + + documented as of this encounter Visit Diagnoses Not on filedocumented in this encounter"
--- OUTSIDE RECORDS SUMMARY | ~2020-08-06 | XMS | Encounter Summary ---
Demographics + + + | Address | [address] | | | [place] [address] | + + + | Home Phone [...] Providers + +------+ + | Care School Age Program Associate Name | Role | Phone | [...] + + | 05/26/ | Emergency | YESSY KIM | Lizbeth Green | Atypical chest pain | | 2013 | | [facility] | DO Nicole Fink | (Primary Dx); | | | | CENTER [address] | [place], [place] | Anxiety | | | | [place], [place] | [address] | | | | | [address] | | | | | | [phone] | | | +--------+ + + + [...] + + + +---------+ + + | [place]-3 Fatty | CAPS, one capsule by | [...] might be diffe rent from the original. [facility] Moe Sanchez Emergency Department Encounter Note [address] [place] [address] PCP:Michael Amanda [phone] CHIEF COMPLAINT Chief Complaint [...] cm he has a cardiothoracic surgeon at [facility] who is going to be following [...] 2003 meniscus-right Laminectomy 1991 L3-4 Lumbar discectomy 1992 [...] Michael Amanda DO. (As needed) Contact information: [address] [place] [address] Lizbeth Green MD 05/27/14 1004 documented in this encounter Miscellaneous Notes Plan of Care - ONBASE SCAN [facility] - 05/28/2014 12:00 AM PDT D Triage [...] Monitor | | MD [address] | Interrogation | | | | | [place], | (Primary Dx); | | | | | [place] [address] | Pacemaker; | | | | | [phone] | Sinoatrial node | | | | | | dysfunction (HCC) | | | | | | with symptomatic | | | | | | bradycardia | +--------+ + + + + | 08/21/ | Implant | Cardiology | Daljit Singletary, | Remote Device | | 2019 | Monitor | | MD [address] | Interrogation | | | | | [place], | (Primary Dx); | | | | | [place] [address] | Pacemaker; | | | | | [phone] | Sinoatrial node | | | | | | dysfunction (HCC) | | | | | | with symptomatic | | | | | | bradycardia | +--------+ + + + + | 08/21/ | Implant | Cardiology | Daljit Singletary, | Remote Device | | 2019 | Monitor | | MD [address] | Interrogation | | | | | [place], | (Primary Dx); | | | | | [place] [address] | Pacemaker; | | | | | [phone] | Sinoatrial node | | | | | | dysfunction (HCC) | | | | | | with symptomatic | | | | | | bradycardia | +--------+ + + + + | 08/21/ | Implant | Cardiology | Daljit Singletary, | Remote Device | | 2019 | Monitor | | MD [address] | Interrogation | | | | | [place], | (Primary Dx); | | | | | [place] [address] | Pacemaker; | | | | | [phone] | Sinoatrial node | | | | | | dysfunction (HCC) | | | | | | with symptomatic | | | | | | bradycardia | +--------+ + + + + | 08/21/ | Implant | Cardiology | Daljit Singletary, | Remote Device | | 2019 | Monitor | | MD [address] | Interrogation | | | | | [place], | (Primary Dx); | | | | | [place] [address] | Pacemaker; | | | | | [phone] | Sinoatrial node | | | | | | dysfunction (HCC) | | | | | | with symptomatic | | | | | | bradycardia | +--------+ + + + + | 10/23/ | Procedure | Cardiology | | | | 2019 | visit | | | | +--------+ + + + + | 10/23/ | Office | Cardiology | [place], | | | 2019 | Visit | | PARISA Vernon [address] | | | | | | [place], | | | | | | [place] [address] | | | | | | [phone] | | | | | | | [...] the uneventful IV administration of 80 mL [id number] contrast. Timing of | | contrast bolus [...] + | MISCELLANEOUS LAB | | | [phone] | + +---------+ + + | MISCELANIOUS LAB | | | [phone] | + +---------+ + + Troponin I [...] | | | | | | [employer] | | | | | [...] + | [facility] | [address] | [place], [place] | [phone] | | [facility] | | [address] | | | - LABORATORY | | | | + + + + + | [facility] | [address] | [place] | | | [facility] | | [id number] | | | - [...] 12 | 7 - 18 mg/dL | [facility] | | | | | | [facility] | | | | | | MEDICAL | | | | | | CENTER - | | | | | | LABORATORY | | + + + + + + | Creatinine | 0.89 | 0.60 - 1.30 | [place] | | | | | mg/dL | [facility] | | | | | | MEDICAL | | | | | | CENTER - | | | | | | LABORATORY | | + + + + + + | eGFR, | >60Comment: GLOMERULAR | >=60 | [place] | | | non- | FILTRATION | mL/min/1.73m2 | [facility] | | | [employer] | RATE,ESTIMATED | | MEDICAL | | | | mL/min/1.76p2Molh than | | CENTER - | | [...] + | [facility] | [address] | [place] | [phone] | | [facility] | | [address] | | | - LABORATORY | | | | + + + + + | [facility] | [address] | [place], [place] | | | [facility] | | [id number] | | | - [...] + | [facility] | [address] | [place], [place] | [phone] | | [facility] | | [address] | | | - LABORATORY | | | | + + + + + | [facility] | [address] | [place] | | | [facility] | | [address], [facility] | | | - LABORATORY | | | | + + + + + documented in this encounter Visit Diagnoses + + | Diagnosis | + + | Atypical chest pain - Primary Other chest pain | + + | Anxiety Anxiety state, unspecified | + + | Remote Device [...]
--- OUTSIDE RECORDS SUMMARY | ~2020-08-06 | XMS | Encounter Summary ---
Demographics + + + | Address | [address] | | | [place] [address] | + + + | Home Phone [...] Providers + +------+ + | Care Mold Dresser Name | Role | Phone | + [...] | CARDIOLOGY [address] | (Primary Dx); PVC's | | | | [place], | [place], | (premature | | | | [place] [address] | [place] [address] | ventricular | | | | [phone] | [phone] | contractions) | | | | | [...] note, lorraine painting has appointment to see behavioral health specialist for PVCs ablations consultation on January [...] tablet Take 1,000 mg by mouth Daily. [place]-3 Fatty Acids (SALMON OIL-1000 PO) CAPS, one [...] tablet Take 1,000 mg by mouth Daily. [place]-3 Fatty Acids (SALMON OIL-1000 PO) CAPS, one [...] Interrogation | | | | | [place], | (Primary Dx); | | | | | [place] [address] | Pacemaker; | | | | | [phone] | Sinoatrial node | | | | | | dysfunction (HCC) | | | | | | with symptomatic | | | | | | bradycardia | +--------+ + + + + | 08/21/ | Implant | Cardiology | Daljit Singletary, | Remote Device | | 2019 | Monitor | | MD [address] | Interrogation | | | | | [place], | (Primary Dx); | | | | | [place] [address] | Pacemaker; | | | | | [phone] | Sinoatrial node | | | | | | dysfunction (HCC) | | | | | | with symptomatic | | | | | | bradycardia | +--------+ + + + + | 08/21/ | Implant | Cardiology | Daljit Singletary, | Remote Device | | 2019 | Monitor | | MD [address] | Interrogation | | | | | [place], | (Primary Dx); | | | | | [place] [address] | Pacemaker; | | | | | [phone] | Sinoatrial node | | | | | | dysfunction (HCC) | | | | | | with symptomatic | | | | | | bradycardia | +--------+ + + + + | 08/21/ | Implant | Cardiology | Daljit Singletary, | Remote Device | | 2019 | Monitor | | MD [address] | Interrogation | | | | | [place], | (Primary Dx); | | | | | [place] [address] | Pacemaker; | | | | | [phone] | Sinoatrial node | | | | | | dysfunction (HCC) | | | | | | with symptomatic | | | | | | bradycardia | +--------+ + + + + | 08/21/ | Implant | Cardiology | Daljit Singletary, | Remote Device | | 2019 | Monitor | | MD [address] | Interrogation | | | | | [place], | (Primary Dx); | | | | | [place] [address] | Pacemaker; | | | | | [phone] | Sinoatrial node | | | | [...] W | | | | | | [place], | | | | | | [place] [address] | | | | | | [phone] | | | | | | | [...] contractions) Other premature beats | + + | [...]
--- OUTSIDE RECORDS SUMMARY | ~2020-08-06 | XMS | Encounter Summary ---
Demographics + + + | Address | [address] | | | [place] [address] | + + + | Home Phone [...] Team Providers + +------+ + | Care Screen Printing Stencil Preparer Name | Role | Phone | [...] 2016 | | CARDIOLOGY [address] | CYLINDER WORKER [address] | | | | | [place], | [place], [place] | | | | | [place] [address] | [address] | | | | | [phone] | | | +--------+--------+ + + + [...] 2019 | Monitor | | [place] [address] [facility] | Interrogation | | | | | [place], | (Primary Dx); | | | | | [place] [address] | Pacemaker; | | | | | [phone] | Sinoatrial node | | | | | | dysfunction ([facility]) | | | | | | with symptomatic | | | | | | bradycardia | +--------+ + + + + | 08/21/ | Implant | Cardiology | Daljit Singletary, | Remote Device | | 2020 | Monitor | | MD [address] | Interrogation | | | | | [place], | (Primary Dx); | | | | | [place] [address] | Pacemaker; | | | | | [phone] | Sinoatrial node | | | | | | dysfunction (HCC) | | | | | | with symptomatic | | | | | | bradycardia | +--------+ + + + + | 08/21/ | Implant | Cardiology | Daljit Singletary, | Remote Device | | 2019 | Monitor | | MD [address] | Interrogation | | | | | [place], | (Primary Dx); | | | | | [place] [address] | Pacemaker; | | | | | [phone] | Sinoatrial node | | | | | | dysfunction (HCC) | | | | | | with symptomatic | | | | | | bradycardia | +--------+ + + + + | 08/21/ | Implant | Cardiology | Daljit Singletary, | Remote Device | | 2019 | Monitor | | MD [address] | Interrogation | | | | | [place], | (Primary Dx); | | | | | [place] [address] | Pacemaker; | | | | | [phone] | Sinoatrial node | | | | | | dysfunction (HCC) | | | | | | with symptomatic | | | | | | bradycardia | +--------+ + + + + | 08/21/ | Implant | Cardiology | Daljit Singletary, | Remote Device | 2019 | Monitor | | MD [address] [place] | Interrogation | | | | | [place], | (Primary Dx); | | | | | [place] [address] | Pacemaker; | | | | | [phone] | Sinoatrial node | | | | [...] W | | | | | | [place], | | | | | | [place] [address] | | | | | | [phone] | | | | | | | | +--------+ + + + + documented as of this encounter Visit Diagnoses Not on filedocumented in this encounter"
--- OUTSIDE RECORDS SUMMARY | ~2020-08-06 | XMS | Encounter Summary ---
Demographics + + + | Address | [address] | | | [place] [address] | + + + | Home Phone [...] Team Providers + +------+ + | Care Rehanger Name | Role | Phone | + [...] | | CARDIOLOGY [address] | MD [address]iqu[address]ro | | | | | [place], | [place], | | | | | [place] [address] | [place] [address] | | | | | [phone] | [phone] | | | | | | | [...] 2019 | Monitor | | [address] [place] | Interrogation | | | | | [place], | (Primary Dx); | | | | | [place] [address] | Pacemaker; | | | | | [phone] | Sinoatrial node | | | | | | dysfunction (HCC) | | | | | | with symptomatic | | | | | | bradycardia | +--------+ + + + + | 08/21/ | Implant | Cardiology | Daljit Singletary, | Remote Device | | 2019 | Monitor | | [address] [place] | Interrogation | | | | | [place], | (Primary Dx); | | | | | [place] [address] | Pacemaker; | | | | | [phone] | Sinoatrial node | | | | | | dysfunction (HCC) | | | | | | with symptomatic | | | | | | bradycardia | +--------+ + + + + | 08/21/ | Implant | Cardiology | Daljit Singletary, | Remote Device | | 2019 | Monitor | | MD [address] [place] | Interrogation | | | | | [place], | (Primary Dx); | | | | | [place] [address] | Pacemaker; | | | | | [phone] | Sinoatrial node | | | | | | dysfunction (HCC) | | | | | | with symptomatic | | | | | | bradycardia | +--------+ + + + + | 08/21/ | Implant | Cardiology | Daljit Singletary, | Remote Device | | 2019 | Monitor | | MD [address] [place] | Interrogation | | | | | [place], | (Primary Dx); | | | | | [place] [address] | Pacemaker; | | | | | [phone] | Sinoatrial node | | | | | | dysfunction (HCC) | | | | | | with symptomatic | | | | | | bradycardia | +--------+ + + + + | 08/21/ | Implant | Cardiology | Daljit Singletary, | Remote Device | | 2020 | Monitor | | MD [address] [place] | Interrogation | | | | | [place], | (Primary Dx); | | | | | [place] [address] | Pacemaker; | | | | | [phone] | Sinoatrial node | | | | [...] | | | | | | [place] [address] | | | | | | [phone] | | | | | | | [...] + | [facility] | [address] [place] [address] | [place] | [phone] | | [facility] | | [address] | | | - LABORATORY | | | | + + + + + | [facility] | [address] | [place], [place] | | | [facility] | | [id number] | | | - LABORATORY [...] Basophils | 0.5 | 1.0 % | [place] | | | | | [...] | | + +---------+ + + | [facility] | | | | | [facility] | | | | | - LABORATORY | | | | + +---------+ + + documented in this encounter Visit Diagnoses Not on filedocumented in this encounter"
--- OUTSIDE RECORDS SUMMARY | ~2020-08-06 | XMS | Encounter Summary ---
Demographics + + + | Address | [address] | | | [place] [address] | + + + | Home Phone [...] | Organization | [facility] | | | and [...] Team Providers + +------+ + | Care Complex Human Resources Manager Name | Role | [...] | | Cardiology | Diagnoses | | [place], | | | | | Symptomatic | Silvia, | MD Jay [address] | | | | | PVCs | [place] | [facility] | | | | | Procedures | [address] | [address] | | | | | [place] OFFICE | [place] | [place] | | | | | CONSULTATION | [place], | [address] Phone: | | | | | NEW/ESTAB | [place] | [phone] | | | | | PATIENT 39 | [address] | Fax: | | | | | MIN | Phone: | [phone] | | | | | | [phone] | | | | | | | Fax: | | | | | | | [phone] | | +--------+--------+ + + + + Encounter Details +--------+---------+ + + + | Date | Type | Department | Care Team | Description | +--------+---------+ + + + | 11/30/ | Office | [facility] | Jay Gambino MD | Symptomatic PVCs | | 2015 | Visit | CARDIOLOGY [facility] | [address] | (Primary Dx) | | | | HI4 [address] | [address] [place], | | | | | [facility] [address] [place], [place] | [place] [address] | | | | | [address] | [phone] | | | | | [phone] | | | +--------+---------+ + + + [...] Gambino MD - 11/30/2014 5:37 PM PST [facility] [address] [place], [place] [id number] Patient Name: Moe Sanchez Date: 1960 Date [...] luz marcos as needed for Chest pain. [place]-3 Fatty Acids (SALMON OIL-1000 PO) CAPS, one capsule by mouth daily twice daily ONE TOUCH DELICA LANCETS [facility] Check glucose as needed for hypoglycemia pantoprazole [...] HTN (hypertension); Hypercholesterolemia; Bipolar 1 disorder ( [facility]); Insomnia; Chronic neck pain; Depression; Hyperlipidemia; [...] PUD; FATTY LIVER DISEASE; SUBSTANCE ABUSE, M ULTIPLE; and Preventative health care (06/26/2013). Past Medical, [...] Dx); | | | | | [place] [address] | Pacemaker; | | | | | [phone] | Sinoatrial node | | | | | | dysfunction (HCC) | | | | | | with symptomatic | | | | | | bradycardia | +--------+ + + + + | 08/21/ | Implant | Cardiology | Dajlit Singletary, | Remote Device | | 2019 | Monitor | | MD [address] [place] | Interrogation | | | | | [place], | (Primary Dx); | | | | | [place] [address] | Pacemaker; | | | | | [phone] | Sinoatrial node | | | | | | dysfunction (HCC) | | | | | | with symptomatic | | | | | | bradycardia | +--------+ + + + + | 08/21/ | Implant | Cardiology | Daljit Singletary, | Remote Device | | 2019 | Monitor | | MD [address] [place] | Interrogation | | | | | [place], | (Primary Dx); | | | | | [place] [address] | Pacemaker; | | | | | [phone] | Sinoatrial node | | | | | | dysfunction (HCC) | | | | | | with symptomatic | | | | | | bradycardia | +--------+ + + + + | 08/21/ | Implant | Cardiology | AnshuDaljit carmona, | Remote Device | | 2019 | Monitor | | MD [address] [place] | Interrogation | | | | | [place], | (Primary Dx); | | | | | [place] [address] | Pacemaker; | | | | | [phone] | Sinoatrial node | | | | | | dysfunction (HCC) | | | | | | with symptomatic | | | | | | bradycardia | +--------+ + + + + | 08/21/ | Implant | Cardiology | Daljit Singletary, | Remote Device | | 2019 | Monitor | | MD [address] [place] | Interrogation | | | | | [place], | (Primary Dx); | | | | | [place] [address] | Pacemaker; | | | | | [phone] | Sinoatrial node | | | | [...] | | | | | | [place], | | | | | | [place] [address] | | | | | | [phone] | | | | | | | [...]
--- OUTSIDE RECORDS SUMMARY | ~2020-08-06 | XMS | Encounter Summary ---
Demographics + + + | Address | [address] | | | [place] [address] | + + + | Home Phone [...] Providers + +------+ + | Care Disability Liaison Officer Name | Role | Phone [...] Refill | | 2013 | | [facility] [place] | DO [address] | | | | | [address] | [place] | | | | | [place] | [address] | | | | | [address] | | | | | | [phone] | | | +--------+--------+ + + + [...] Telephone Encounter - Omaira Bedoya RN - 03/16/2014 2:46 PM PDTLast seen 08/17/13 Ok to refill? documented in this enc ounter Plan of Treatment +--------+ + + + + | Date | Type | Specialty | Care Team | Description | +--------+ + + + + | 08/21/ | Implant | Cardiology | Daljit Singletary, | Remote Device | | 2020 | Monitor | | [address] [facility] [place] | Interrogation | | | | | [place], | (Primary Dx); | | | | | [place] [address] | Pacemaker; | | | | | [phone] | Sinoatrial node | | | | | | dysfunction ([facility]) | | | | | | with symptomatic | | | | | | bradycardia | +--------+ + + + + | 08/21/ | Implant | Cardiology | Daljit Singletary, | Remote Device | | 2019 | Monitor | | MD [address] [place] | Interrogation | | | | | [place], | (Primary Dx); | | | | | [place] [address] | Pacemaker; | | | | | [phone] | Sinoatrial node | | | | | | dysfunction (HCC) | | | | | | with symptomatic | | | | | | bradycardia | +--------+ + + + + | 08/21/ | Implant | Cardiology | Daljit Singletary, | Remote Device | | 2019 | Monitor | | MD [address] [place] | Interrogation | | | | | [place], | (Primary Dx); | | | | | [place] [address] | Pacemaker; | | | | | [phone] | Sinoatrial node | | | | | | dysfunction (HCC) | | | | | | with symptomatic | | | | | | bradycardia | +--------+ + + + + | 08/21/ | Implant | Cardiology | Daljit Singletary, | Remote Device | | 2020 | Monitor | | MD [address] [place] | Interrogation | | | | | [place], | (Primary Dx); | | | | | [place] [address] | Pacemaker; | | | | | [phone] | Sinoatrial node | | | | | | dysfunction (HCC) | | | | | | with symptomatic | | | | | | bradycardia | +--------+ + + + + | 08/21/ | Implant | Cardiology | Daljit Singletary, | Remote Device | 2019 | Monitor | | MD [address] [place] | Interrogation | | | | | [place], | (Primary Dx); | | | | | [place] [address] | Pacemaker; | | | | | [phone] | Sinoatrial node | | | | [...] W | | | | | | [place], | | | | | | [place] [address] | | | | | | [phone] | | | | | | | | +--------+ + + + + documented as of this encounter Visit Diagnoses Not on filedocumented in this encounter"
--- OUTSIDE RECORDS SUMMARY | ~2020-08-06 | XMS | Encounter Summary ---
Demographics + + + | Address | [address] | | | [place] [address] | + + + | Home Phone [...] Providers + +------+ + | Care Flight Mechanic Name | Role | Phone | + +------+ + | Kirk French MD | PCP | | + +------+ + Encounter Details +--------+ + + + + | Date | Type | Department | Care Team | Description | +--------+ + + + + | 01/18/ | Hospital | [facility] | Conversion | Diagnosis unknown | | 2016 | Encounter | CONVERSION [address] | Transaction, | | | | | [address] | Provider Unknown | | | | | [place], [place] | [phone] | | | | | [address] | | | | | | [phone] | | | +--------+ + + + [...] + + + +---------+ + + | Hayden-3 Fatty | CAPS, one capsule by | [...] | 08/21/ | Implant | Cardiology | SunshineDaljit villarreal, | Remote Device | | 2019 | Monitor | | MD [address] [place] | Interrogation | | | | | [place], | (Primary Dx); | | | | | [place] [address] | Pacemaker; | | | | | [phone] | Sinoatrial node | | | | | | dysfunction (HCC) | | | | | | with symptomatic | | | | | | bradycardia | +--------+ + + + + | 08/21/ | Implant | Cardiology | Daljit Singletary, | Remote Device | | 2019 | Monitor | | MD [address] [place] | Interrogation | | | | | [place], | (Primary Dx); | | | | | [place] [address] | Pacemaker; | | | | | [phone] | Sinoatrial node | | | | | | dysfunction (HCC) | | | | | | with symptomatic | | | | | | bradycardia | +--------+ + + + + | 08/21/ | Implant | Cardiology | Daljit Singletary, | Remote Device | | 2020 | Monitor | | MD [address] [place] | Interrogation | | | | | [place], | (Primary Dx); | | | | | [place] [address] | Pacemaker; | | | | | [phone] | Sinoatrial node | | | | | | dysfunction (HCC) | | | | | | with symptomatic | | | | | | bradycardia | +--------+ + + + + | 08/21/ | Implant | Cardiology | Daljit Singletary, | Remote Device | | 2019 | Monitor | | MD [address] [place] | Interrogation | | | | | [place], | (Primary Dx); | | | | | [place] [address] | Pacemaker; | | | | | [phone] | Sinoatrial node | | | | | | dysfunction (HCC) | | | | | | with symptomatic | | | | | | bradycardia | +--------+ + + + + | 08/21/ | Implant | Cardiology | Daljit Singletary, | Remote Device | | 2019 | Monitor | | MD [address] [place] | Interrogation | | | | | [place], | (Primary Dx); | | | | | [place] [address] | Pacemaker; | | | | | [phone] | Sinoatrial node | | | | [...] W | | | | | | [place], | | | | | | [place] [address] | | | | | | [phone] | | | | | | | [...] of morbidity or mortality | + + | Remote Device Interrogation [...]
--- OUTSIDE RECORDS SUMMARY | ~2020-08-06 | XMS | Encounter Summary ---
Demographics + + + | Address | [address] | | | [place] [address] | + + + | Home Phone [...] Providers + +------+ + | Care Passenger Train Braker Name | Role | Phone | + +------+ + PCP | Unavailable | + +------+ + Encounter Details +--------+ + + + + | Date | Type | Department | Care Team | Description | +--------+ + + + + | 07/20/ | [facility] | [facility] | Hunter Antunez, | | | 2009 - | Encounter | MED CTR MED ONC | [address] | | | | | [address] | [place] | | | 07/24/ | | [place] [address] | [address] | | | 2009 | | [phone] | | | +--------+ + + + [...] Dx); | | | | | [place] [address] | Pacemaker; | | | | | [phone] | Sinoatrial node | | | | | | dysfunction (HCC) | | | | | | with symptomatic | | | | | | bradycardia | +--------+ + + + + | 08/21/ | Implant | Cardiology | Daljit Singletary, | Remote Device | | 2019 | Monitor | | [address] [place] | Interrogation | | | | | [place], | (Primary Dx); | | | | | [place] [address] | Pacemaker; | | | | | [phone] | Sinoatrial node | | | | | | dysfunction (HCC) | | | | | | with symptomatic | | | | | | bradycardia | +--------+ + + + + | 08/21/ | Implant | Cardiology | Daljit Singletary, | Remote Device | | 2020 | Monitor | | MD [address] [place] | Interrogation | | | | | [place], | (Primary Dx); | | | | | [place] [address] | Pacemaker; | | | | | [phone] | Sinoatrial node | | | | | | dysfunction ([facility]) | | | | | | with symptomatic | | | | | | bradycardia | +--------+ + + + + | 08/21/ | Implant | Cardiology | Daljit Singletary, | Remote Device | | 2019 | Monitor | | MD [address] [place] | Interrogation | | | | | [place], | (Primary Dx); | | | | | [place] [address] | Pacemaker; | | | | | [phone] | Sinoatrial node | | | | | | dysfunction ([facility]) | | | | | | with symptomatic | | | | | | bradycardia | +--------+ + + + + | 08/21/ | Implant | Cardiology | Daljit Singletary, | Remote Device | | 2019 | Monitor | | MD [address] [place] | Interrogation | | | | | [place], | (Primary Dx); | | | | | [place] [address] | Pacemaker; | | | | | [phone] | Sinoatrial node | | | | [...] | | | | | | [place] [address] | | | | | | [phone] | | | | | | | | +--------+ + + + + documented as of this encounter Visit Diagnoses Not on filedocumented in this encounter"
--- OUTSIDE RECORDS SUMMARY | ~2020-08-06 | XMS | Encounter Summary ---
Demographics + + + | Address | [address] | | | [place] [address] | + + + | Home Phone [...] Team Providers + +------+ + | Care Set Up Inspector Name | Role | Phone | [...] + | 10/26/ | Telephone | [facility] | Silvia, | Referral | | 2013 | | CARDIOLOGY [address] | [place] [address] | | | | | [place], | [place], | | | | | [place] [address] | [place] [address] | | | | | [phone] | [phone] | | | | | | | [...] Notes Telephone Encounter - Briseida Martino - 10/26/2014 9:13 AM PSTFAXED REFERRAL TO JUDITH LINCOLN MD AT FAX NUMBER [phone]: REFERRAL DEMOGRAPHICS CHART NOTES 10-23-14, 06-25-14 LABS [id number] signed by Briseida Martino at 10/26/2014 9:14 AM PSTdocumented in [...] Dx); | | | | | [place] [address] | Pacemaker; | | | | | [phone] | Sinoatrial node | | | | | | dysfunction (HCC) | | | | | | with symptomatic | | | | | | bradycardia | +--------+ + + + + | 08/21/ | Implant | Cardiology | Daljit Singletary, | Remote Device | | 2020 | Monitor | | MD [address] [place] | Interrogation | | | | | [place], | (Primary Dx); | | | | | [place] [address] | Pacemaker; | | | | | [phone] | Sinoatrial node | | | | | | dysfunction ([facility]) | | | | | | with symptomatic | | | | | | bradycardia | +--------+ + + + + | 08/21/ | Implant | Cardiology | Daljit Singletary, | Remote Device | | 2019 | Monitor | | MD [address] [place] | Interrogation | | | | | [place], | (Primary Dx); | | | | | [place] [address] | Pacemaker; | | | | | [phone] | Sinoatrial node | | | | | | dysfunction ([facility]) | | | | | | with symptomatic | | | | | | bradycardia | +--------+ + + + + | 08/21/ | Implant | Cardiology | Daljit Singletary, | Remote Device | | 2019 | Monitor | | MD [address] [place] | Interrogation | | | | | [place], | (Primary Dx); | | | | | [place] [address] | Pacemaker; | | | | | [phone] | Sinoatrial node | | | | | | dysfunction (HCC) | | | | | | with symptomatic | | | | | | bradycardia | +--------+ + + + + | 08/21/ | Implant | Cardiology | Daljit Singletary, | Remote Device | 2019 | Monitor | | MD [place] | Interrogation | | | | | [place], | (Primary Dx); | | | | | [place] [address] | Pacemaker; | | | | | [phone] | Sinoatrial node | | | | [...] W | | | | | | [place], | | | | | | [place] [address] | | | | | | [phone] | | | | | | | | +--------+ + + + + documented as of this encounter Visit Diagnoses Not on filedocumented in this encounter"
--- OUTSIDE RECORDS SUMMARY | ~2020-08-06 | XMS | Encounter Summary ---
Demographics + + + | Address | [address] | | | [place] [address] | + + + | Home Phone [...] Providers + +------+ + | Care Steel Detailer Name | Role | Phone | + [...] Provider Unknown | | | | | [place], [place] | [phone] | | | | | [address] | | | | | | [phone] | | | +--------+ + + + [...] + + + +---------+ + + | Cliff-3 Fatty | CAPS, one capsule by | [...] Dx); | | | | | [place] [address] | Pacemaker; | | | | | [phone] | Sinoatrial node | | | | | | dysfunction (HCC) | | | | | | with symptomatic | | | | | | bradycardia | +--------+ + + + + | 08/21/ | Implant | Cardiology | Daljit Singletary, | Remote Device | | 2019 | Monitor | | MD [address] [place] | Interrogation | | | | | [place], | (Primary Dx); | | | | | [place] [address] | Pacemaker; | | | | | [phone] | Sinoatrial node | | | | | | dysfunction (HCC) | | | | | | with symptomatic | | | | | | bradycardia | +--------+ + + + + | 08/21/ | Implant | Cardiology | Daljit Singletary, | Remote Device | | 2019 | Monitor | | MD [address] [place] | Interrogation | | | | | [place], | (Primary Dx); | | | | | [place] [address] | Pacemaker; | | | | | [phone] | Sinoatrial node | | | | | | dysfunction (HCC) | | | | | | with symptomatic | | | | | | bradycardia | +--------+ + + + + | 08/21/ | Implant | Cardiology | Daljit Singletary, | Remote Device | | 2020 | Monitor | | MD [address] [place] | Interrogation | | | | | [place], | (Primary Dx); | | | | | [place] [address] | Pacemaker; | | | | | [phone] | Sinoatrial node | | | | | | dysfunction (HCC) | | | | | | with symptomatic | | | | | | bradycardia | +--------+ + + + + | 08/21/ | Implant | Cardiology | Daljit Singletary, | Remote Device | | 2020 | Monitor | | MD [address] [place] | Interrogation | | | | | [place], | (Primary Dx); | | | | | [place] [address] | Pacemaker; | | | | | [phone] | Sinoatrial node | | | | [...] | | | | | | [place] [address] | | | | | | [phone] | | | | | | | [...]
--- OUTSIDE RECORDS SUMMARY | ~2020-08-06 | XMS | Encounter Summary ---
Demographics + + + | Address | [address] | | | [place] [address] | + + + | Home Phone [...] Team Providers + +------+ + | Care Triple Valve Tester Name | Role | Phone | [...] + | 06/22/ | Telephone | [facility] | Michael Amanda, | Eye Problem | | 2012 | | [facility] [place] | DO [address] | | | | | [address] | [place] | | | | | [place] | [address] | | | | | [address] | | | | | | [phone] | | | +--------+ + + + [...] care provider Patient can be reached at Home:[phone] Patient also says he needs physical Talked [...] | Monitor | | MD [address] [place] | Interrogation | | | | | [place], | (Primary Dx); | | | | | [place] [address] | Pacemaker; | | | | | [phone] | Sinoatrial node | | | | | | dysfunction (HCC) | | | | | | with symptomatic | | | | | | bradycardia | +--------+ + + + + | 08/21/ | Implant | Cardiology | Daljit Singletary, | Remote Device | | 2019 | Monitor | | MD [address] [place] | Interrogation | | | | | [place], | (Primary Dx); | | | | | [place] [address] | Pacemaker; | | | | | [phone] | Sinoatrial node | | | | | | dysfunction (HCC) | | | | | | with symptomatic | | | | | | bradycardia | +--------+ + + + + | 08/21/ | Implant | Cardiology | Daljit Singletary, | Remote Device | | 2020 | Monitor | | MD [address] [place] | Interrogation | | | | | [place], | (Primary Dx); | | | | | [place] [address] | Pacemaker; | | | | | [phone] | Sinoatrial node | | | | | | dysfunction (HCC) | | | | | | with symptomatic | | | | | | bradycardia | +--------+ + + + + | 08/21/ | Implant | Cardiology | Daljit Singletary, | Remote Device | | 2019 | Monitor | | MD [address] [place] | Interrogation | | | | | [place], | (Primary Dx); | | | | | [place] [address] | Pacemaker; | | | | | [phone] | Sinoatrial node | | | | | | dysfunction (HCC) | | | | | | with symptomatic | | | | | | bradycardia | +--------+ + + + + | 08/21/ | Implant | Cardiology | Daljit Singletary, | Remote Device | | 2019 | Monitor | | MD [address] [place] | Interrogation | | | | | [place], | (Primary Dx); | | | | | [place] [address] | Pacemaker; | | | | | [phone] | Sinoatrial node | | | | [...] | | | | | | [place] [address] | | | | | | [phone] | | | | | | | | +--------+ + + + + documented as of this encounter Visit Diagnoses Not on filedocumented in this encounter"
--- OUTSIDE RECORDS SUMMARY | ~2020-08-06 | XMS | Encounter Summary ---
Demographics + + + | Address | [address] | | | [place] [address] | + + + | Home Phone [...] Providers + +------+ + | Care Underground Utility Locator Name | Role | Phone | + [...] [place] | | | | | | [address] | | | | | | [phone] | | | +--------+ + + + [...] + + + +---------+ + + | Solomon-3 Fatty | CAPS, one capsule by | [...] | Monitor | | MD [address] [place] | Interrogation | | | | | [place], | (Primary Dx); | | | | | [place] [address] | Pacemaker; | | | | | [phone] | Sinoatrial node | | | | | | dysfunction (HCC) | | | | | | with symptomatic | | | | | | bradycardia | +--------+ + + + + | 08/21/ | Implant | Cardiology | Daljit Singletary, | Remote Device | | 2019 | Monitor | | MD [address] [place] | Interrogation | | | | | [place], | (Primary Dx); | | | | | [place] [address] | Pacemaker; | | | | | [phone] | Sinoatrial node | | | | | | dysfunction (HCC) | | | | | | with symptomatic | | | | | | bradycardia | +--------+ + + + + | 08/21/ | Implant | Cardiology | Daljit Singletary, | Remote Device | | 2019 | Monitor | | MD [address] [place] | Interrogation | | | | | [place], | (Primary Dx); | | | | | [place] [address] | Pacemaker; | | | | | [phone] | Sinoatrial node | | | | | | dysfunction (HCC) | | | | | | with symptomatic | | | | | | bradycardia | +--------+ + + + + | 08/21/ | Implant | Cardiology | Daljit Singletary, | Remote Device | | 2019 | Monitor | | MD [address] [place] | Interrogation | | | | | [place], | (Primary Dx); | | | | | [place] [address] | Pacemaker; | | | | | [phone] | Sinoatrial node | | | | | | dysfunction (HCC) | | | | | | with symptomatic | | | | | | bradycardia | +--------+ + + + + | 08/21/ | Implant | Cardiology | Daljit Singletary, | Remote Device | | 2019 | Monitor | | MD [address] [place] | Interrogation | | | | | [place], | (Primary Dx); | | | | | [place] [address] | Pacemaker; | | | | | [phone] | Sinoatrial node | | | | [...] | | | | | | [place], | | | | | | [place] [address] | | | | | | [phone] | | | | | | | | +--------+ + + + + documented as of this encounter Visit Diagnoses + + | Diagnosis | + + | Patient left after triage - Primary | + + | Remote [...]
--- OUTSIDE RECORDS SUMMARY | ~2020-08-06 | XMS | Encounter Summary ---
Demographics + + + | Address | [address] | | | [place] [address] | + + + | Home Phone [...] Providers + +------+ + | Care Rn Integrity Name | Role | Phone | + [...] Provider Unknown | | | | | [place], [place] | [phone] | | | | | [address] | | | | | | [phone] | | | +--------+ + + + [...] + + + +---------+ + + | [place]-3 Fatty | CAPS, one capsule by | [...] | | | | | | | #[id number], exp 07/2016 | | | | | [...] 2020 | Monitor | | [address] [place] | Interrogation | | | | | [place], | (Primary Dx); | | | | | [place] [address] | Pacemaker; | | | | | [phone] | Sinoatrial node | | | | | | dysfunction (HCC) | | | | | | with symptomatic | | | | | | bradycardia | +--------+ + + + + | 08/21/ | Implant | Cardiology | Daljit Singletary, | Remote Device | | 2019 | Monitor | | MD [address] [place] | Interrogation | | | | | [place], | (Primary Dx); | | | | | [place] [address] | Pacemaker; | | | | | [phone] | Sinoatrial node | | | | | | dysfunction (HCC) | | | | | | with symptomatic | | | | | | bradycardia | +--------+ + + + + | 08/21/ | Implant | Cardiology | Daljit Singletary, | Remote Device | | 2019 | Monitor | | MD [address] [place] | Interrogation | | | | | [place], | (Primary Dx); | | | | | [place] [address] | Pacemaker; | | | | | [phone] | Sinoatrial node | | | | | | dysfunction (HCC) | | | | | | with symptomatic | | | | | | bradycardia | +--------+ + + + + | 08/21/ | Implant | Cardiology | Daljit Singletary, | Remote Device | | 2019 | Monitor | | MD [address] | Interrogation | | | | | [place], | (Primary Dx); | | | | | [place] [address] | Pacemaker; | | | | | [phone] | Sinoatrial node | | | | | | dysfunction (HCC) | | | | | | with symptomatic | | | | | | bradycardia | +--------+ + + + + | 08/21/ | Implant | Cardiology | Daljit Singletary, | Remote Device | | 2019 | Monitor | | MD [address] | Interrogation | | | | | [place], | (Primary Dx); | | | | | [place] [address] | Pacemaker; | | | | | [phone] | Sinoatrial node | | | | [...] W | | | | | | [place], | | | | | | [place] [address] | | | | | | [phone] | | | | | | | [...]
--- OUTSIDE RECORDS SUMMARY | ~2020-08-06 | XMS | Encounter Summary ---
Demographics + + + | Address | [address] | | | [place] [address] | + + + | Home Phone [...] Providers + +------+ + | Care Remote Coders Name | Role | Phone | + [...] + + | 12/23/ | Telephone | [facility] | Emmanuel Daniel MD | Other (Needs to know | | 2017 | | GASTROENTEROLOGY | [address], [place] | what he can eat | | | | [address] [place] | [address] [place], [place] | today) | | | | [address] [place], [place] | [address] | | | | | [address] | | | | | | [phone] | | | +--------+ + + + [...] 9:22 AM PSTTelephone Encounter - Nataly Pratt - 12/23/2017 8:39 AM PSTPatient maria luz [...] Interrogation | | | | | [place], | (Primary Dx); | | | | | [place] [address] | Pacemaker; | | | | | [phone] | Sinoatrial node | | | | | | dysfunction (HCC) | | | | | | with symptomatic | | | | | | bradycardia | +--------+ + + + + | 08/21/ | Implant | Cardiology | Daljit Singletary, | Remote Device | | 2019 | Monitor | | MD [address] | Interrogation | | | | | [place], | (Primary Dx); | | | | | [place] [address] | Pacemaker; | | | | | [phone] | Sinoatrial node | | | | | | dysfunction (HCC) | | | | | | with symptomatic | | | | | | bradycardia | +--------+ + + + + | 08/21/ | Implant | Cardiology | Daljit Singletary, | Remote Device | | 2019 | Monitor | | MD [address] | Interrogation | | | | | [place], | (Primary Dx); | | | | | [place] [address] | Pacemaker; | | | | | [phone] | Sinoatrial node | | | | | | dysfunction (HCC) | | | | | | with symptomatic | | | | | | bradycardia | +--------+ + + + + | 08/21/ | Implant | Cardiology | Daljit Singletary, | Remote Device | | 2019 | Monitor | | MD [address] | Interrogation | | | | | [place], | (Primary Dx); | | | | | [place] [address] | Pacemaker; | | | | | [phone] | Sinoatrial node | | | | | | dysfunction (HCC) | | | | | | with symptomatic | | | | | | bradycardia | +--------+ + + + + | 08/21/ | Implant | Cardiology | Daljit Singletary, | Remote Device | | 2019 | Monitor | | MD [address] [place] | Interrogation | | | | | [place], | (Primary Dx); | | | | | [place] [address] | Pacemaker; | | | | | [phone] | Sinoatrial node | | | | [...] | | | | | | [place] [address] | | | | | | [phone] | | | | | | | | +--------+ + + + + documented as of this encounter Visit Diagnoses Not on filedocumented in this encounter"
--- OUTSIDE RECORDS SUMMARY | ~2020-08-06 | XMS | Encounter Summary ---
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 | [place], | | | | | (HCC) | [address] | [place] | | | | | Procedures | [place] | [address] | | | | | ECHO | [place], | Phone: | | | | | Complete | [place] | [phone] | | | | | | [address] | Fax: | | | | | | Phone: | [phone] | | | | | | [phone] | | | | | | | Fax: | | | | | | | [phone] | | +--------+--------+ + + + + Encounter Details +--------+ + + + + | Date | Type | Department | Care Team | Description | +--------+ + + + + | 11/16/ | Orders Only | [facility] [place] | Sil[place], | Aneurysmal | | 2017 | | CARDIOLOGY [address] | PARISA Solis [address] | dilatation (HCC) | | | | [place], | [place], | (Primary Dx) | | | | [place] [address] | [place] [address] | | | | | [phone] | [phone] | | | | | | | [...] | Monitor | | MD [address] [place] | Interrogation | | | | | [place], | (Primary Dx); | | | | | [place] [address] | Pacemaker; | | | | | [phone] | Sinoatrial node | | | | | | dysfunction (HCC) | | | | | | with symptomatic | | | | | | bradycardia | +--------+ + + + + | 08/21/ | Implant | Cardiology | Sydni Singletary, | Remote Device | | 2020 | Monitor | | MD [address] [place] | Interrogation | | | | | [place], | (Primary Dx); | | | | | [place] [address] | Pacemaker; | | | | | [phone] | Sinoatrial node | | | | | | dysfunction (HCC) | | | | | | with symptomatic | | | | | | bradycardia | +--------+ + + + + | 08/21/ | Implant | Cardiology | Sydni Singletary, | Remote Device | | 2019 | Monitor | | MD [address] [place] | Interrogation | | | | | [place], | (Primary Dx); | | | | | [place] [address] | Pacemaker; | | | | | [phone] | Sinoatrial node | | | | | | dysfunction (HCC) | | | | | | with symptomatic | | | | | | bradycardia | +--------+ + + + + | 08/21/ | Implant | Cardiology | Sydni Singletary, | Remote Device | | 2019 | Monitor | | MD [address] [place] | Interrogation | | | | | [place], | (Primary Dx); | | | | | [place] [address] | Pacemaker; | | | | | [phone] | Sinoatrial node | | | | | | dysfunction (HCC) | | | | | | with symptomatic | | | | | | bradycardia | +--------+ + + + + | 08/21/ | Implant | Cardiology | Sydni Singletary, | Remote Device | | 2019 | Monitor | | MD [address] [place] | Interrogation | | | | | 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 SYDNI SINGLETARY, | | | | | | Gender Male 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 | | | Stress Slip Mixer Procedure Type of | | | Study [...] | | | EF | | | Ruvjydfju60% Left Ventricle Diastolic Dimension: 5.12 cm | [...] Volume: 46.33 ml | | | EF Rswnxixpj45% | | | | | | Left [...] Brown Results In - 11/16/2017 1:48 PM [facility] Transthoracic Echocardiography Report | | (TTE) Demographics Patient Name VICTOR HUGO BARRY Room Number SARAH | | Patient [id number] Date of Study 11/16/2017 Number Visit Number | | [id number] Referring Physician GURJIT TROY | | Number RHYNARD IRMA Date of | | 1960 Supervisor Frame Sample And Pattern ROMAINE TIPTON, MARISSA Age 57 year(s) | | Interpreting GURJIT TROY District Home 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
--- OUTSIDE RECORDS SUMMARY | ~2020-08-06 | XMS | Encounter Summary ---
Demographics + + + | Address | [address] | | | [place] [address] | + + + | Home Phone [...] Providers + +------+ + | Care Deck Builder Name | Role | Phone | + +------+ + PCP | Unavailable | + +------+ + Encounter Details +--------+ + + + + | Date | Type | Department | Care Team | Description | +--------+ + + + + | 04/22/ | Hospital | [facility] | | | | 2011 | Encounter | MED CTR XRAY [address] | | | | | | [place] | | | | | | [place] [address] | | | | | | [phone] | | | +--------+ + + + [...] | 2020 | Monitor | | [address] | Interrogation | | | | | [place], | (Primary Dx); | | | | | [place] [address] | Pacemaker; | | | | | [phone] | Sinoatrial node | | | | | | dysfunction (HCC) | | | | | | with symptomatic | | | | | | bradycardia | +--------+ + + + + | 08/21/ | Implant | Cardiology | Daljit Singletary, | Remote Device | | 2019 | Monitor | | MD [address] [place] | Interrogation | | | | | [place], | (Primary Dx); | | | | | [place] [address] | Pacemaker; | | | | | [phone] | Sinoatrial node | | | | | | dysfunction ([facility]) | | | | | | with symptomatic | | | | | | bradycardia | +--------+ + + + + | 08/21/ | Implant | Cardiology | Daljit Singletary, | Remote Device | | 2019 | Monitor | | MD [address] [place] | Interrogation | | | | | [place], | (Primary Dx); | | | | | [place] [address] | Pacemaker; | | | | | [phone] | Sinoatrial node | | | | | | dysfunction (HCC) | | | | | | with symptomatic | | | | | | bradycardia | +--------+ + + + + | 08/21/ | Implant | Cardiology | Shaista Singletarypawanotto, | Remote Device | | 2019 | Monitor | | MD [address] [place] | Interrogation | | | | | [place], | (Primary Dx); | | | | | [place] [address] | Pacemaker; | | | | | [phone] | Sinoatrial node | | | | | | dysfunction (HCC) | | | | | | with symptomatic | | | | | | bradycardia | +--------+ + + + + | 08/21/ | Implant | Cardiology | JoshcrispinDaljit villarreal, | Remote Device | | 2019 | Monitor | | MD [address] | Interrogation | | | | | [place], | (Primary Dx); | | | | | [place] [address] | Pacemaker; | | | | | [phone] | Sinoatrial node | | | | [...] W | | | | | | [place], | | | | | | [place] [address] | | | | | | [phone] | | | | | | | [...] At | + + + | [facility] Diagnostic Imaging Department | [facility] | | [address] [facility] | [facility] | | CT MYELOGRAM LUMBAR SPINE, | [facility] | | 04/22/2012 CLINICAL HISTORY: CHRONIC BACK [...] Transcribed Date/Time: | | | 04/23/2012 11:06 Transit Department Clerk: <Electronically Signed | | | by Jama Solis MD> 04/24/12 1330 | | + + + + + | Procedure Note | + + | Kevin, Rad Conversion - 12/29/2013 5:27 PM [facility] | | Diagnostic Imaging Department [address] [place] [address] | | CT MYELOGRAM LUMBAR SPINE, 04/22/2012 [...] <Electronically Signed by Jama Solis MD> 04/24/12 9484 | | | |L3-4: Minimal broad-based disk [...] 10:54 | |Transcribed Date/Time: 04/23/2012 11:06 | |Transit Department Clerk: | |<Electronically Signed by Jama Solis MD> 04/24/12 0730 | + + + +---------+ + + | Performing | Address | City/State/Zipcode | Phone Number | | Organization | | | | + +---------+ + + | [place] | | | | | [facility] | | | | + +---------+ + + CT Thoracic Spine w Contrast (04/22/2012 1:12 PM PDT) + + | Specimen | + + | | + + + + + | Narrative | Performed At | + + + | [facility] Diagnostic Imaging Department | [facility] | | [address] [facility] | [facility] | | THORACIC CT MYELOGRAM [...] Transcribed Date/Time: 04/22/2012 17:32 | | | Transit Department Clerk: <Electronically Signed by Jama Mason | | | MD Will> 04/23/12 1039 | | + + + + + | Procedure Note | + + | Kevin, Rad Conversion - 12/29/2013 5:27 PM [facility] | | Diagnostic Imaging Department [address] [place] [address] | | THORACIC CT MYELOGRAM CLINICAL HISTORY: [...] 16:56 | |Transcribed Date/Time: 04/22/2012 17:32 | |Transit Department Clerk: | |<Electronically Signed by Jama Solis MD> 04/23/12 1039 | + + + +---------+ + + | Performing | Address | City/State/Zipcode | Phone Number | | Organization | | | | + +---------+ + + | [place] | | | | | [facility] | | | | + +---------+ + + CT Cervical Spine w Contrast (04/22/2012 1:12 PM PDT) + + | Specimen | + + | | + + + + + | Narrative | Performed At | + + + | [facility] | [facility] | | [address] [facility] | [facility] | | CT MYELOGRAM CERVICAL [...] Similar study from | | | 09/02/2009, [facility]. FINDINGS: Firm bony ankylosis | | | [...] Transcribed Date/Time: | | | 04/22/2012 17:25 Transit Department Clerk: <Electronically Signed | | | by Jama Solis MD> 04/23/12 1039 | | + + + + + | Procedure Note | + + | Kevin, Rad Conversion - 12/29/2013 5:27 PM [facility] | | Diagnostic Imaging Department | | [address] [facility] | | | | [...] | | COMPARISON: Similar study from 09/02/2009, [facility]. | | | | FINDINGS: Firm bony [...] | Transcribed Date/Time: 04/22/2012 17:25 | | Transit Department Clerk: | | <Electronically Signed by Jama Solis MD> 04/23/12 1039 | + + + +---------+ + + | Performing | Address | City/State/Zipcode | Phone Number | | Organization | | | | + +---------+ + + | [place] | | | | | [facility] | | | | + +---------+ + + [place] Lumbar Puncture (04/22/2012 1:12 PM PDT) + + | Specimen | + + | | + + + + + | Narrative | Performed At | + + + | [facility] Diagnostic Imaging Department | [facility] | | [address] [facility] | [facility] | | LUMBAR MYELOGRAM INJECTION FOR CT [...] Transcribed Date/Time: 04/22/2012 16:36 | | | Transit Department Clerk: <Electronically Signed by Jama Mason | | | MD Will> 04/23/12 1039 | | + + + + + | Procedure Note | + + | Kalpesh Brown Conversion - 12/29/2013 5:27 PM [facility] | | Diagnostic Imaging Department [address] [facility] | | LUMBAR MYELOGRAM INJECTION FOR CT [...] 15:51 | |Transcribed Date/Time: 04/22/2012 16:36 | |Transit Department Clerk: | |<Electronically Signed by Jama Solis MD> 04/23/12 1039 | + + + +---------+ + + | Performing | Address | City/State/Zipcode | Phone Number | | Organization | | | | + +---------+ + + | [place] | | | | | [facility] | | | | + +---------+ + + documented in this encounter Visit Diagnoses Not on filedocumented in this encounter"
--- OUTSIDE RECORDS SUMMARY | ~2020-08-06 | XMS | Encounter Summary ---
Demographics + + + | Address | [address] | | | [place] [address] | + + + | Home Phone [...] + +------+ + | Care Quality Control Director Name | Role | Phone | [...] + + | 08/30/ | Refill | [facility] | Kirk French | Medication Refill | | 2019 | | [facility] | MD Brea [address] | | | | | [address] | | | | | [address] | [place] [address] | | | | | [place], [place] | [phone] | | | | | [address] | | | | | | [phone] | | | +--------+--------+ + + + [...] Miscellaneous Notes Telephone Encounter - Geri Bear Software Test And Validation Engineer - 08/30/2019 12:37 PM PDTrefillElec tronically signed by Geri Bear Software Test And Validation Engineer at 08/30/2019 12:37 PM PDTdocujean pierre villarreal this encounter Plan of Treatment +--------+ + + + + | Date | Type | Specialty | Care Team | Description | +--------+ + + + + | 08/21/ | Implant | Cardiology | Daljit Singletary, | Remote Device | | 2019 | Monitor | | MD [address] [place] | Interrogation | | | | | [place], | (Primary Dx); | | | | | [place] [address] | Pacemaker; | | | | | [phone] | Sinoatrial node | | | | | | dysfunction (HCC) | | | | | | with symptomatic | | | | | | bradycardia | +--------+ + + + + | 08/21/ | Implant | Cardiology | Daljit Singletary, | Remote Device | | 2019 | Monitor | | MD [address] [place] | Interrogation | | | | | [place], | (Primary Dx); | | | | | [place] [address] | Pacemaker; | | | | | [phone] | Sinoatrial node | | | | | | dysfunction (HCC) | | | | | | with symptomatic | | | | | | bradycardia | +--------+ + + + + | 08/21/ | Implant | Cardiology | Daljit Singletary, | Remote Device | | 2020 | Monitor | | MD [address] [place] | Interrogation | | | | | [place], | (Primary Dx); | | | | | [place] [address] | Pacemaker; | | | | | [phone] | Sinoatrial node | | | | | | dysfunction (HCC) | | | | | | with symptomatic | | | | | | bradycardia | +--------+ + + + + | 08/21/ | Implant | Cardiology | Daljit Singletary, | Remote Device | | 2019 | Monitor | | MD [address] [place] | Interrogation | | | | | [place], | (Primary Dx); | | | | | [place] [address] | Pacemaker; | | | | | [phone] | Sinoatrial node | | | | | | dysfunction (HCC) | | | | | | with symptomatic | | | | | | bradycardia | +--------+ + + + + | 08/21/ | Implant | Cardiology | Daljit Singletary, | Remote Device | | 2019 | Monitor | | MD [address] | Interrogation | | | | | [place], | (Primary Dx); | | | | | [place] [address] | Pacemaker; | | | | | [phone] | Sinoatrial node | | | | | | dysfunction (HCC) | | | | | | with symptomatic | | | | | | bradycardia | +--------+ + + + + | 12/02/ | Procedure | Cardiology | | | | 2019 | visit | | | | +--------+ + + + + | 10/23/ | Office | Cardiology | Silvia, | | | 2019 | Visit | | PARISA [place] [address] | | | | | | [place], | | | | | | [place] [address] | | | | | | [phone] | | | | | | | | +--------+ + + + + documented as of this encounter Visit Diagnoses Not on filedocumented in this encounter"
--- OUTSIDE RECORDS SUMMARY | ~2020-08-06 | XMS | Encounter Summary ---
Demographics + + + | Address | [address] | | | [place] [address] | + + + | Home Phone [...] +------+ + | Care Day Care Home Mother Name | Role | Phone | + [...] | Hypertension | | + + + Follow Up (Routine) + +--------+ + + + + | Status | Reason | Specialty | Diagnoses / | Referred By | Referred To | | | | | Procedures | Contact | Contact | + +--------+ + + + + | Authorized | | Cardiology | Diagnoses | Manolo, | [facility] | | | | | Essential | Kirk Guidry, | Cardiology | | | | | (primary) | MD [address] | [address] | | | | | hypertension | [address] | [place], | | | | | Sick sinus | [address] | [place] | | | | | syndrome | [place] | [address] | | | | | (HCC) | [address] | Phone: | | | | | Ventricular | Phone: | [phone] | | | | | premature | [phone] | Fax: | | | | | depolarizati | Fax: | [phone] | | | | | on | [phone] | | | | | | Tachycardia, | | | | | | | unspecified | | | | | | | | | | | | | | Atherosclero | | | | | | | tic heart | | | | | | | disease of | | | | | | | del[place] tribe | | | | | | | [...] Description | +--------+---------+ + + + | 07/16/ | Office | [facility] | [place], | Sinoatrial node | | 2020 | Visit | CARDIOLOGY [address] | Janeen, DRIFT MINER [address] | dysfunction ([facility]) | | | | [place] [place], | [place], | with symptomatic | | | | [place] [address] | [place] [address] | bradycardia; | | | | [phone] | [phone] | Symptomatic PVCs; | | | | | | Tachycardia; | | | | | | Coronary artery | | | | | | disease involving | | | | | | del[place] tribe coronary | | | | | | artery of del[place] tribe | | | | | | heart without angina | | | | | | pectoris; Essential | | | | | | hypertension; | | | | | | Ascending thoracic | | | | | | aortic aneurysm | | | | | | ([facility]); Pacemaker; | | | | | | [...] + + + | Blood Pressure | 98/68 | 07/16/2020 1:31 PM | | | | | PDT | | + + + + + | Pulse | 72 | 07/16/2020 1:31 PM | | | | | PDT | | + + + + + | Temperature | - | - | | + + + + + | Respiratory Rate | 16 | 07/16/2020 1:31 PM | | | | | PDT | | + + + + + | Oxygen Saturation | - | - | | + + + + + | Inhaled Oxygen | - | - | | | Concentration | | | | + + + + + | Weight | 117.5 kg (259 lb 0.7 | 07/16/2020 1:31 PM | | | | oz) | PDT | | + + + + + | Height | 193 cm (6' 4") | 07/16/2020 1:31 PM | | | | | PDT | | + + + + + | Body Mass Index | 31.53 | 07/16/2020 1:31 PM | | | | | PDT [...] encounter Patient Instructions Patient Instructions Vidhi Gillespie, River Captain - 07/16/2020 1:30 PM PDT1. Esau gibbons with current medical regimen and medications. 2. He will follow up in 3 months for office visit and device interrogation, or sooner with concerns. documented in this encounter Progress Notes Janeen Vega ARNP - 07/16/2020 1:30 PM PDTFormatting of this note might be differen t from the original. Sign when Signing Visit PATIENT NAME: Moe Sanchez : 1960: AGE: 60 y.o. Pacemaker Evaluation Report July 16, 2020 Reason for evaluation: symptoms Indication for pacemaker: Sinoatrial node dysfunction (HCC) [...] by Sydni Singletary MD Underlying rhythm: Sinus rhythm 67-68 beats. 2 mode switch episodes accounting for <0.1% of the time. No episodes. PVC singles 181 PVC singles 71/month PVC runs 1 PVC runs <1/month Histogram good. Battery longevity <1 month. Nearing LINDA, otherwise normal and stable device function. Weekly remote monitoring. Device interrogation due in office when device reaches replacement interval. Santos Allison ARNP - 07/16/2020 1:30 PM PDTFormatting of this note might be different from the origin al. PATIENT NAME: Moe Sanchez : 1960: AGE: 60 y.o. PRIMARY CARE: Kirk French MD OUTPATIENT FOLLOW UP VISIT Date of Service: 07/16/2020 HISTORY OF PRESENT ILLNESS: Moe Sanchez is a 60 y.o. male with a history of critical coronary artery dise ase involving del[place] tribe coronary artery of del[place] tribe heart without angina pectoris, essential hype rtension, symptomatic bradycardia status post Medtronic dual-chamber permanent pacemaker imp lantation 06/14/09, frequent premature ventricular contractions status post ablation spring, and bipolar disorder with anxiety. He is being seen today for follow up. He was last seen 05/01/2020 at which time he was to increase atorvastatin to 80 mg; take 1 t ablet nightly. Monthly transtelephonic downloads for pacemaker. Will call patient with echoc ardiogram results tomorrow after 10 AM. He will follow up in 6 months for office visit and device interrogation, or sooner with concerns. He will have an ECG at his follow up visit. Since that time, on 05/02/2020 Janeen called patient to notify him of echo results, no varghese es from last echo. Aortic dilatation 4.5 cm, unchanged. On 05/07/2020 patient called to mayo fontenot that he was supposed to have an MRI in [place] at [facility] because his pacemaker was n ot currently MRI friendly. He needs to have something done with his shoulder. He was wonder ing if his new pacemaker that he will get when this one hits LINDA in about 6 months will be M RI friendly and whether or not the leads will be MRI friendly. He was wondering if he needs to wait until then to do the MRI. He was reassured that leads are MRI friendly and all new pacemakers are MRI friendly. He reports he will wait until he gets his device changed out to deal with the MRI. On 05/27/2020 patient's monitor still not connecting. On 05/30/2020 Phamnilam fontenot called to update that he was no longer taking Lyrica. He reports that he was "swelling up like a pig" and he even decreased his sodium intake. He was refusing to take this medication any longer. On 07/10/2020 per Kailey Pruitt RN patients pacemaker remote report showed 1 mon th remaining on battery 06/20 and 07/08 shows <1 month remaining. On 07/10/20 Amilcar reports ely t he is having swelling in his legs, ankles, calves, hands and face. His shortness of breath is still present, not really worse but never gone. He has gained weight and feels bloated up. He feels like he swells more when he moves around. He is advised that he should come so cris for an appointment so this can be evaluated in person. On 07/11/2020 he was seen by PCP for shoulder pain. He has had a good energy level. He has not been very active. He has not had any chest pain or discomfort at rest or with exertion. He has not noticed shortness of breath. He has no t had any lightheadedness or dizziness. He has not noticed palpitations. He has mild edema on his left leg. He is able to sleep laying down at night without any symptoms of shortness of breath. He does not uses CPAP machine to sleep. He states that he has trouble falling a sleep, he was started on trazodone PRN by PCP. MEDICAL, SURGICAL, AND PERSONAL HISTORY Past Medical, Surgical, Family, and Social History are reviewed in EPIC. CURRENT PROBLEMS Patient Active Problem List Diagnosis Hyperlipidemia, mixed Bipolar disorder Smoker Hypertension Fibromyalgia Low back pain Chronic pain syndrome Thrombocytopenia FATIGUE ABDOMINAL PAIN, UNSPECIFIED SITE NECK PAIN, CHRONIC Syncope Obstructive sleep apnea on CPAP Ulcerative colitis Sinoatrial node dysfunction with symptomatic bradycardia Pacemaker, Dual Chamber, Medtronic 06/14/2009 HEPATITIS B PUD FATTY LIVER DISEASE Multiple substance abuse DEPRESSION Hypoglycemia Symptomatic PVCs Tachycardia Preventative health care Coronary artery disease involving del[place] tribe coronary artery of [place] tribe heart without angina pectoris Marijuana use Ascending thoracic aortic aneurysm Pacemaker reprogramming/check DO NOT DELETE Anxiety about health Diarrhea Weight loss Beta Blockers - Daily Use Depression with anxiety H/O Lumbar Fusion - "6 levels" per pt Blood glucose elevated Decreased potassium in the blood Neuralgia Abnormal serum level of lipase Irritable bowel syndrome Obesity Left ureteral calculus Chronic narcotic use Rectal bleeding Diarrhea, unspecified type Unintentional weight loss Opioid type dependence, continuous Allergy to opioid analgesic Shooting pain CURRENT MEDICATIONS Current Outpatient Medications Medication Sig [...] DAY NEEDED FOR ANXIETY 90 tablet 0 diclofenac (VOLTAREN) 75 mg EC tablet Take [...] tablets by mouth Daily. 135 tablet 3 Multiple Vitamins-Minerals (CENTRUM SILVER PO) Take 1 tablet by mouth Daily. nitroglycerin (NITROSTAT) 0.[address] ONE TABLET UNDER THE TONGUE EVERY 5 AL NUTES NEEDED FOR CHEST PAIN 250 tablet 0 [place]-3 Fatty Acids (SALMON OIL-1000 PO) CAPS, one capsule by mouth daily twice daily ondansetron (ZOFRAN ODT) 4 mg disintegrating tablet Take 4 mg by mouth every 8 hours as needed for Nausea. ONE TOUCH DELICA LANCETS [facility] Check glucose as needed for hypoglycemia 100 each 3 pregabalin (LYRICA) 75 mg capsule Take 1 capsule by mouth 2 times daily. 90 capsule 1 promethazine (PHENERGAN) 12.5 MG tablet 1po tid prn 90 tablet 3 rOPINIrole (REQUIP) 1 mg tablet Take 1 tablet by mouth nightly. 0 traZODone (DESYREL) 150 MG tablet Take 1 tablet by mouth nightly. (Patient taking diffe rently: Take 300 mg by mouth nightly as needed .) 30 tablet 0 valACYclovir (VALTREX) 1 g tablet TAKE [...] for shortness of breath. Cardiovascular: Positive for leg swelling. Negative for chest pain and palpitations. Neurological: Negative for dizziness and weakness. Lightheadedness = no OBJECTIVE: PHYSICAL EXAM BP 98/68 | Pulse 72 | Resp 16 | Ht 1.93 m (6' 4") | Wt 117.5 kg (259 lb 0.7 oz) | BMI 31.53 kg/m Physical Exam Constitutional: He is oriented [...] tenderness. Musculoskeletal: Normal range of motion. General: Edema (mild edema on his left leg) present. Comments: Wearing braise on the left leg Neurological: He is [...] orders placed or performed in visit on 07/16/2020 ECG 12 lead Result Value Ref Range INTERPRETATION TEXT Atrial-paced rhythm with prolonged AV conduction Abnormal ECG Rate 71 bpm LAB RESULTS reviewed during visit today [...] 06/02/2019 CREA 0.92 06/02/2019 BUN 15 06/02/2019 GFRNONAA >60 06/02/2019 EGFREX 90 01/05/2020 CREEX 0.87 01/05/2020 HEMATOLOGY Lab Results Component Value Date WBC 6.3 06/02/2019 WBCEX 7.9 01/05/2020 HGB 16.3 06/02/2019 HGBEX 15.3 01/05/2020 HCT 46.4 06/02/2019 HCTEX 44.3 01/05/2020 PLT 169 06/02/2019 PLTEX 158 01/05/2020 Lab Results Component Value Date TSH 1.07 12/31/2016 TSHEX 1.15 05/12/2016 BNP 48 06/02/2019 I reviewed records from PCP for office visit on 07/11/2020 which is summarized in the HPI. RESULTS- I reviewed reports from [facility]: No results found. Above data and testing is reviewed this visit; testing below is historical data unless othe rwise specified. ASSESSMENT: 1. Non-critical Coronary artery disease involving del[place] tribe coronary artery of del[place] tribe heart [facility] angina pectoris: A.Normal exercise sestamibi stress [...] with a TR hemostatic band, MD Shawn Miles. Today, 07/16/2020, he is asymptomatic, no chest discomfort. He is on a medical regimen with aspirin, beta-edvin and statin.There are no signs or symptoms o f overt congestive heart failure, and his physical exam shows no significant fluid retention . He is in class I- No symptoms; no limitations of activities of the [facility] tion functional class. Heart failure stage A-pre-heart failure. [...] performed by Dr Juan Diego Gambino at [facility] on 01/30/2013.Patient had spontaneous PVC'sfr om 3 [...] to go back in 3 days to [place] for an attempt of ablation under general [...] and PVC'swere noted, by Sydni Singletary MD. 3. Essential hypertension with goal blood pressure less than 130/80: A. Today, 07/16/2020, his blood pressure is on the low end of normal range. 4. Ascending thoracic aorta aneurysm: A. CTA [...] n on rechecking echocardiogram next spring. D. Echocardiogram from 04/2020 shows Normal left ventricular size with a mild concentric l eft ventricular hypertrophy. Left ventricular systolic function is preserved. LVEF is 60 t o 65%. Grade 2/pseudonormalization left ventricular diastolic dysfunction. Mildly thickened mitral valve with trace mitral valve regurgitation. Trace aortic valve insufficiency. Mild t ricuspid valve regurgitation. Mild ascending aorta dilatation measuring 4.5 cm in diameter. Normal right-sided pressure. Normal IVC with a normal respiratory collapse. When compared to echocardiogram on 11/16/2017, no significant changes. 5. Sinoatrial node dysfunction with symptomatic bradycardia: [...] remaining bat taylor longevity is 3.5 years. D.Today, 07/16/2020, he feels palpitations are well controlled on cu rrent regimen. His device interrogation shows battery life of 1 month. He will do weekly tra nstelephonic remotes. Will need replacement with MRI compatible. He has leads that are MRI c ompatible already. 6. Lightheadedness and dizziness/ presyncope: A. [facility]. B.Today, 07/16/2020, no further episodes. 7. History of cigarette smoking: A. Today, 07/16/2020, he states had completely quit. 8. Bipolar disease with anxiety/depression: A. He is using clonazepam as needed. B. 01/11/2019, he will see his PCP and see about his medication. C.Today, 07/16/2020, he states he is not currently taking anxiety medications. PLAN: 1. Continue with current medical regimen and medications. His device interrogation shows ba ttery life of 1 month. He will do weekly transtelephonic remotes. Will need replacement with MRI compatible. He has leads that are MRI compatible already. 2. He will follow up in 3 months for office visit and device interrogation, or sooner with concerns. I, Vidhi Gillespie, River Captain am acting as a scribe on behalf of, and in the prese nce of PARISA Lomas. - Vidhi Gillespie, River Captain 07/16/2020 2:15 PM PDT I, PARISA Lomas, personally performed the services described in this documentati on, as scribed in my presence and it is both accurate and complete. -PARISA Lomas 07/16/2020 Portions of this chart may have been created with picsell voice recognition software. Occasi onal wrong-word or [...] Interrogation | | | | | [place], | (Primary Dx); | | | | | [place] [address] | Pacemaker; | | | | | [phone] | Sinoatrial node | | | | | | dysfunction (HCC) | | | | | | with symptomatic | | | | | | bradycardia | +--------+ + + + + | 08/21/ | Implant | Cardiology | Sydni Singletary, | Remote Device | | 2019 | Monitor | | MD [address] | Interrogation | | | | | [place], | (Primary Dx); | | | | | [place] [address] | Pacemaker; | | | | | [phone] | Sinoatrial node | | | | | | dysfunction ([facility]) | | | | | | with symptomatic | | | | | | bradycardia | +--------+ + + + + | 08/21/ | Implant | Cardiology | Sydni Singletary, | Remote Device | | 2019 | Monitor | | MD [address] | Interrogation | | | | | [place], | (Primary Dx); | | | | | [place] [address] | Pacemaker; | | | | | [phone] | Sinoatrial node | | | | | | dysfunction (HCC) | | | | | | with symptomatic | | | | | | bradycardia | +--------+ + + + + | 08/21/ | Implant | Cardiology | Sunshinecherelle Sydni, | Remote Device | | 2020 | Monitor | | MD [address] | Interrogation | | | | | [place], | (Primary Dx); | | | | | [place] [address] | Pacemaker; | | | | | [phone] | Sinoatrial node | | | | | | dysfunction (HCC) | | | | | | with symptomatic | | | | | | bradycardia | +--------+ + + + + | 08/21/ | Implant | Cardiology | Sydni Singletary, | Remote Device | | 2019 | Monitor | | MD [address] | Interrogation | | | | | [place], | (Primary Dx); | | | | | [place] [address] | Pacemaker; | | | | | [phone] | Sinoatrial node | | | | [...] | | | | | | [place], | | | | | | [place] [address] | | | | | | [phone] | | | | | | | | +--------+ + + + + documented as of this encounter Procedures + +--------+ + + + | Procedure Name | Priori | Date/Time | Associated Diagnosis | Comments | | | ty | | | | + +--------+ + + + | ECG 12 LEAD | Routin | 07/16/2020 | Essential | Results for this | | | e | 1:44 PM | hypertension | procedure are in the | | | | PDT | | results section. | + +--------+ + + + documented in this encounter Results ECG 12 lead (07/16/2020 1:44 PM PDT) + + + + + [...] + + + + | Q-T | 392 | ms | [facility] | | | INTERVAL | | | | | + + + + + + | Q-T | 425 | ms | [facility] | | | INTERVAL | | | | | | (CORRECTED) | | | | | + + + + + + | P WAVE AXIS | 39 | degrees | [facility] | | + + + + + + | QRS AXIS | 48 | degrees | [facility] | | + + + + + + | T AXIS | 21 | degrees | [facility] | | + + + + + + | INTERPRETAT | Atrial-paced rhythm with | | [facility] | | | ION TEXT | prolonged AV | | | | | | conductionAbnormal | | | | | | ECGWhen compared with | | | | | | ECG of 06-JUN-2019 | | | | | | 14:51,No significant | | | | | | change was | | | | | | foundConfirmed by | | | | | | SYDNI SINGLETARY MD | | | | | | ([id number]) on 07/16/2020 | | | | | | 3:13:17 PM | | | | + + [...] + + | Coronary artery disease involving del[place] tribe coronary artery of del[place] tribe heart without | | angina pectoris | + + | Essential hypertension Unspecified essential hypertension | + + | Ascending thoracic aortic aneurysm (HCC) Thoracic aneurysm without mention of rupture | + + | Pacemaker Cardiac pacemaker [...]
--- OUTSIDE RECORDS SUMMARY | ~2020-08-06 | XMS | Encounter Summary ---
Demographics + + + | Address | [address] | | | [place] [address] | + + + | Home Phone [...] Team Providers + +------+ + | Care Delinquent Tax Collection Assistant Name | Role | Phone | + +------+ + | Kirk French MD | PCP | | + +------+ + Reason for Visit +--------+--------+ + | Reason | Onset | Comments | | | Date | | +--------+--------+ + | Other | 06/02/ | symptoms | | | 2019 | | +--------+--------+ + Encounter Details +--------+ + + + + | Date | Type | Department | Care Team | Description | +--------+ + + + + | 06/02/ | Telephone | [facility] | Daljit Singletary, | Other (symptoms) | | 2019 | | CARDIOLOGY [address] | | | | | [address] [place], | [place], | | | | | [place] [address] | [place] [address] | | | | | [phone] | [phone] | | | | | | | [...] Telephone Encounter - Kasie Ashley RN - 06/02/2019 5:[address] [facility]5. Called patient and spoke with him about his symptoms. He is having baljit st pain and shortness of breath, dizziness and lightheadedness where he is almost passes out . "When heart is fluttering it knocks me over". Instructed patient to go to the ER immediate ly. He refuses because he lives in [place] and doesn't want to go to [facility]. He sta marcos he has no one to drive him anywhere and I instructed him to not drive himself as he coul d harm himself and others on the road. Patient states he will call around and try and find a ride. In the meantime, he agrees to call 911 if symptoms worsen............................ .................Kasie Ashley RN on 06/02/19 at 17:14 documented in this en counter Plan of Treatment +--------+ + + + + | Date | Type | Specialty | Care Team | Description | +--------+ + + + + | 08/21/ | Implant | Cardiology | Daljit Singletary, | Remote Device | | 2019 | Monitor | | MD [address] | Interrogation | | | | | [place], | (Primary Dx); | | | | | [place] [address] | Pacemaker; | | | | | [phone] | Sinoatrial node | | | | | | dysfunction ([facility]) | | | | | | with symptomatic | | | | | | bradycardia | +--------+ + + + + | 08/21/ | Implant | Cardiology | Daljit Singletary, | Remote Device | | 2020 | Monitor | | MD [address] | Interrogation | | | | | [place], | (Primary Dx); | | | | | [place] [address] | Pacemaker; | | | | | [phone] | Sinoatrial node | | | | | | dysfunction (HCC) | | | | | | with symptomatic | | | | | | bradycardia | +--------+ + + + + | 08/21/ | Implant | Cardiology | Daljit Singletary, | Remote Device | | 2019 | Monitor | | MD [address] | Interrogation | | | | | [place], | (Primary Dx); | | | | | [place] [address] | Pacemaker; | | | | | [phone] | Sinoatrial node | | | | | | dysfunction (HCC) | | | | | | with symptomatic | | | | | | bradycardia | +--------+ + + + + | 08/21/ | Implant | Cardiology | Daljit Singletary, | Remote Device | | 2019 | Monitor | | MD [address] | Interrogation | | | | | [place], | (Primary Dx); | | | | | [place] [address] | Pacemaker; | | | | | [phone] | Sinoatrial node | | | | | | dysfunction (HCC) | | | | | | with symptomatic | | | | | | bradycardia | +--------+ + + + + | 08/21/ | Implant | Cardiology | Daljit Singletary, | Remote Device | | 2019 | Monitor | | MD [address] | Interrogation | | | | | [place], | (Primary Dx); | | | | | [place] [address] | Pacemaker; | | | | | [phone] | Sinoatrial node | | | | [...] [address] | | | | | | [place], | | | | | | [place] [address] | | | | | | [phone] | | | | | | | | +--------+ + + + + documented as of this encounter Visit Diagnoses Not on filedocumented in this encounter
--- OUTSIDE RECORDS SUMMARY | ~2020-08-06 | XMS | Encounter Summary ---
Demographics + + + | Address | [address] | | | [place] [address] | + + + | Home Phone [...] Team Providers + +------+ + | Care Curtain Mender Name | Role | Phone | + +------+ + PCP | Unavailable | + +------+ + Encounter Details +--------+ + + + + | Date | Type | Department | Care Team | Description | +--------+ + + + + | 04/23/ | Hospital | [facility] | | | | 2007 - | Encounter | MED CTR MED ONC | | | | | | [address] | | | | 04/24/ | | [place] [address] | | | | 2007 | | [phone] | | | +--------+ + + + [...] | 08/21/ | Implant | Cardiology | Dalijt Singletary, | Remote Device | | 2019 | Monitor | | MD [address] | Interrogation | | | | | [place], | (Primary Dx); | | | | | [place] [address] | Pacemaker; | | | | | [phone] | Sinoatrial node | | | | | | dysfunction (HCC) | | | | | | with symptomatic | | | | | | bradycardia | +--------+ + + + + | 08/21/ | Implant | Cardiology | Daljit Singletary, | Remote Device | | 2019 | Monitor | | MD [address] | Interrogation | | | | | [place], | (Primary Dx); | | | | | [place] [address] | Pacemaker; | | | | | [phone] | Sinoatrial node | | | | | | dysfunction (HCC) | | | | | | with symptomatic | | | | | | bradycardia | +--------+ + + + + | 08/21/ | Implant | Cardiology | Daljit Singletary, | Remote Device | | 2019 | Monitor | | MD [address] | Interrogation | | | | | [place], | (Primary Dx); | | | | | [place] [address] | Pacemaker; | | | | | [phone] | Sinoatrial node | | | | | | dysfunction (HCC) | | | | | | with symptomatic | | | | | | bradycardia | +--------+ + + + + | 08/21/ | Implant | Cardiology | Daljit Singletary, | Remote Device | | 2019 | Monitor | | MD [address] | Interrogation | | | | | [place], | (Primary Dx); | | | | | [place] [address] | Pacemaker; | | | | | [phone] | Sinoatrial node | | | | | | dysfunction (HCC) | | | | | | with symptomatic | | | | | | bradycardia | +--------+ + + + + | 08/21/ | Implant | Cardiology | Daljit Singletary, | Remote Device | | 2019 | Monitor | | MD [address] | Interrogation | | | | | [place], | (Primary Dx); | | | | | [place] [address] | Pacemaker; | | | | | [phone] | Sinoatrial node | | | | [...] | | | | | | [place] [address] | | | | | | [phone] | | | | | | | | +--------+ + + + + documented as of this encounter Visit Diagnoses Not on filedocumented in this encounter"
--- OUTSIDE RECORDS SUMMARY | ~2020-08-06 | XMS | Encounter Summary ---
Demographics + + + | Address | [address] | | | [place] [address] | + + + | Home Phone [...] Providers + +------+ + | Care Petroleum Plant Operator Name | Role | Phone [...] + + | 09/01/ | Telephone | [facility] | Silvia, | Appointment | | 2016 | | CARDIOLOGY [address] | PARISA [place] [address] | (Reschedule) | | | | [address] [place], | [place], | | | | | [place] [address] | [place] [address] | | | | | [phone] | [phone] | | | | | | | [...] Interrogation | | | | | [place], | (Primary Dx); | | | | | [place] [address] | Pacemaker; | | | | | [phone] | Sinoatrial node | | | | | | dysfunction (HCC) | | | | | | with symptomatic | | | | | | bradycardia | +--------+ + + + + | 08/21/ | Implant | Cardiology | Daljit Singletary, | Remote Device | | 2019 | Monitor | | MD Chiquis Kauffmanar | Interrogation | | | | | [place], | (Primary Dx); | | | | | [place] [address] | Pacemaker; | | | | | [phone] | Sinoatrial node | | | | | | dysfunction (HCC) | | | | | | with symptomatic | | | | | | bradycardia | +--------+ + + + + | 08/21/ | Implant | Cardiology | Daljit Singletary, | Remote Device | | 2019 | Monitor | | MD [address] | Interrogation | | | | | [place], | (Primary Dx); | | | | | [place] [address] | Pacemaker; | | | | | [phone] | Sinoatrial node | | | | | | dysfunction (HCC) | | | | | | with symptomatic | | | | | | bradycardia | +--------+ + + + + | 08/21/ | Implant | Cardiology | Daljit Singletary, | Remote Device | | 2019 | Monitor | | MD [address] | Interrogation | | | | | [place], | (Primary Dx); | | | | | [place] [address] | Pacemaker; | | | | | [phone] | Sinoatrial node | | | | | | dysfunction (HCC) | | | | | | with symptomatic | | | | | | bradycardia | +--------+ + + + + | 08/21/ | Implant | Cardiology | Daljit Singletary, | Remote Device | | 2019 | Monitor | | MD [address] | Interrogation | | | | | [place], | (Primary Dx); | | | | | [place] [address] | Pacemaker; | | | | | [phone] | Sinoatrial node | | | | [...] | | | | | | [place] [address] | | | | | | [phone] | | | | | | | | +--------+ + + + + documented as of this encounter Visit Diagnoses Not on filedocumented in this encounter"
--- OUTSIDE RECORDS SUMMARY | ~2020-08-06 | XMS | Encounter Summary ---
Demographics + + + | Address | [address] [place] [address] [address] | | | [place] [address] | + + + | Home Phone [...] [place] | | | | | [address] | | + + + + + Care Team Providers + +------+ + | Care Route Salesperson Name | Role | Phone | [...] | | | | [address] [place] | [place], [place] | | | | | for Health and | [address] | | | | | Healing, [address] | [phone] | | | | | [place], [place] | | | | | | [address] | | | | | | [phone] | | | +--------+ + + + [...] Telephone Encounter - Allyson Diehl RN - 01/30/2020 9:59 AM PDTSee further documentat ion on 01/04/20 encounter. A M PDTTelephone Encounter - Tyrel Matthew - 01/30/2020 9:07 AM PDTMon 01/29/2020 4:04 PM VM: Patient is calling and would like to speak to med staff about severe bloating and what he c an do to alleviate. States it gets to the point where it's hard to breath, no stomach cramps or gas yet. Also, would like to follow up on status of appointments for upcoming procedures . *Message: VM is from 01/29/20, processed on 01/30/20Electronically signed by Matthew Sarah at 0 9:17 AM PDTdocumented in this encounter Plan of Treatment Not on filedocumented as of this encounter Visit Diagnoses Not on filedocumented in this encounter"
--- OUTSIDE RECORDS SUMMARY | ~2020-08-06 | XMS | Encounter Summary ---
Demographics + + + | Address | [address] | | | [place] [address] | + + + | Home Phone [...] + +------+ + | Care Ice Cream Server Name | Role | Phone | [...] María, | | | | ogy | Unspecified | Kirk Guidry, | Emmanuel Fitzpatrick MD | | | | | abdominal | [address] | [address], | | | | | pain | [address] | [address] | | | | | Chronic pain | [address] | [place], | | | | | syndrome | [place], [place] | [place] [address] | | | | | Procedures | [address] | Phone: | | | | | Office Visit | Phone: | [phone] | | | | | | [phone] | Fax: | | | | | | Fax: | [phone] | | | | | | [phone] | | +--------+--------+ + + + + Encounter Details +--------+---------+ + + + | Date | Type | Department | Care Team | Description | +--------+---------+ + + + | 12/02/ | Office | [facility] [place] | Emmanuel Daniel MD | Diarrhea, | | 2018 | Visit | GASTROENTEROLOGY | [address], [place] | unspecified type | | | | [address] | [address] [place], [place] | (Primary Dx); Weight | | | | [address] [place], [place] | [address] | loss, | | | | [address] | | unintentional; | | | | [phone] | | Generalized | | | | [...] any noct urnal symptoms. He was in [facility] 2 years ago and required hospitalization in [...] severe diarrhea probable infective occurring while visiting [facility] Diarrhea etiology and significance to be determined [...] Dx); | | | | | [place] [address] | Pacemaker; | | | | | [phone] | Sinoatrial node | | | | | | dysfunction (HCC) | | | | | | with symptomatic | | | | | | bradycardia | +--------+ + + + + | 08/21/ | Implant | Cardiology | Daljit Singletary, | Remote Device | | 2020 | Monitor | | MD [address] | Interrogation | | | | | [place], | (Primary Dx); | | | | | [place] [address] | Pacemaker; | | | | | [phone] | Sinoatrial node | | | | | | dysfunction ([facility]) | | | | | | with symptomatic | | | | | | bradycardia | +--------+ + + + + | 08/21/ | Implant | Cardiology | Daljit Singletary, | Remote Device | | 2019 | Monitor | | MD [address] | Interrogation | | | | | [place], | (Primary Dx); | | | | | [place] [address] | Pacemaker; | | | | | [phone] | Sinoatrial node | | | | | | dysfunction ([facility]) | | | | | | with symptomatic | | | | | | bradycardia | +--------+ + + + + | 08/21/ | Implant | Cardiology | Daljit Singletary, | Remote Device | | 2019 | Monitor | | MD [address] | Interrogation | | | | | [place], | (Primary Dx); | | | | | [place] [address] | Pacemaker; | | | | | [phone] | Sinoatrial node | | | | | | dysfunction (HCC) | | | | | | with symptomatic | | | | | | bradycardia | +--------+ + + + + | 08/21/ | Implant | Cardiology | Daljit Singletary, | Remote Device | 2019 | Monitor | | MD Chiquis Oro | Interrogation | | | | | [place], | (Primary Dx); | | | | | [place] [address] | Pacemaker; | | | | | [phone] | Sinoatrial node | | | | [...] | | | | | | [place], | | | | | | [place] [address] | | | | | | [phone] | | | | | | | [...]
--- OUTSIDE RECORDS SUMMARY | ~2020-08-06 | XMS | Encounter Summary ---
Demographics + + + | Address | [address] | | | [place] [address] | + + + | Home Phone [...] Providers + +------+ + | Care Investigative Research Specialist Name | Role | Phone | [...] | Telephone | [facility] [place] | [place], | Chest Pain (Patient | | 2013 | | CARDIOLOGY [address] | Janeen BOTTLING SUPERVISOR [address] | having chest pain) | | | | [place], | [place], | | | | | [place] [address] | [place] [address] | | | | | [phone] | [phone] | | | | | | | [...] + + + + | 09/30/ | Implant | Cardiology | Daljit Singletary, | Remote Device | | 2019 | Monitor | | MD [address] [place] | Interrogation | | | | | [place], | (Primary Dx); | | | | | [place] [address] | Pacemaker; | | | | | [phone] | Sinoatrial node | | | | | | dysfunction (HCC) | | | | | | with symptomatic | | | | | | bradycardia | +--------+ + + + + | 08/21/ | Implant | Cardiology | Daljit Singletary, | Remote Device | | 2019 | Monitor | | MD [address] [place] | Interrogation | | | | | [place], | (Primary Dx); | | | | | [place] [address] | Pacemaker; | | | | | [phone] | Sinoatrial node | | | | | | dysfunction (HCC) | | | | | | with symptomatic | | | | | | bradycardia | +--------+ + + + + | 08/21/ | Implant | Cardiology | Daljit Singletary, | Remote Device | | 2020 | Monitor | | MD [address] [place] | Interrogation | | | | | [place], | (Primary Dx); | | | | | [place] [address] | Pacemaker; | | | | | [phone] | Sinoatrial node | | | | | | dysfunction (HCC) | | | | | | with symptomatic | | | | | | bradycardia | +--------+ + + + + | 08/21/ | Implant | Cardiology | Daljit Singletary, | Remote Device | | 2019 | Monitor | | MD [address] [place] | Interrogation | | | | | [place], | (Primary Dx); | | | | | [place] [address] | Pacemaker; | | | | | [phone] | Sinoatrial node | | | | | | dysfunction (HCC) | | | | | | with symptomatic | | | | | | bradycardia | +--------+ + + + + | 08/21/ | Implant | Cardiology | Daljit Singletary, | Remote Device | | 2019 | Monitor | | MD [address] [place] | Interrogation | | | | | [place], | (Primary Dx); | | | | | [place] [address] | Pacemaker; | | | | | [phone] | Sinoatrial node | | | | [...] | | | | | | [place] [address] | | | | | | [phone] | | | | | | | | +--------+ + + + + documented as of this encounter Visit Diagnoses Not on filedocumented in this encounter"
--- OUTSIDE RECORDS SUMMARY | ~2020-08-06 | XMS | Encounter Summary ---
Demographics + + + | Address | [address] | | | [place] [address] | + + + | Home Phone [...] Providers + +------+ + | Care Medical Secretary Receptionist Name | Role | Phone [...] | 2018 | Changes | GASTROENTEROLOGY | Toy Consultant | | | | | [address] | | | | | | [address] [place] [place] | | | | | | [address] | | | | | | [phone] | | | +--------+ + + + [...] Interrogation | | | | | [place], | (Primary Dx); | | | | | [place] [address] | Pacemaker; | | | | | [phone] | Sinoatrial node | | | | | | dysfunction (HCC) | | | | | | with symptomatic | | | | | | bradycardia | +--------+ + + + + | 08/21/ | Implant | Cardiology | Daljit Singletary, | Remote Device | | 2019 | Monitor | | MD [address] | Interrogation | | | | | [place], | (Primary Dx); | | | | | [place] [address] | Pacemaker; | | | | | [phone] | Sinoatrial node | | | | | | dysfunction (HCC) | | | | | | with symptomatic | | | | | | bradycardia | +--------+ + + + + | 08/21/ | Implant | Cardiology | Daljit Singletary, | Remote Device | | 2019 | Monitor | | MD [address] | Interrogation | | | | | [place], | (Primary Dx); | | | | | [place] [address] | Pacemaker; | | | | | [phone] | Sinoatrial node | | | | | | dysfunction (HCC) | | | | | | with symptomatic | | | | | | bradycardia | +--------+ + + + + | 08/21/ | Implant | Cardiology | Daljit Singletary, | Remote Device | | 2019 | Monitor | | MD [address] | Interrogation | | | | | [place], | (Primary Dx); | | | | | [place] [address] | Pacemaker; | | | | | [phone] | Sinoatrial node | | | | | | dysfunction (HCC) | | | | | | with symptomatic | | | | | | bradycardia | +--------+ + + + + | 08/21/ | Implant | Cardiology | SunshinecherelleDaljit, | Remote Device | | 2019 | Monitor | | [address] | Interrogation | | | | | [place], | (Primary Dx); | | | | | [place] [address] | Pacemaker; | | | | | [phone] | Sinoatrial node | | | | [...] W | | | | | | [place], | | | | | | [place] [address] | | | | | | [phone] | | | | | | | | +--------+ + + + + documented as of this encounter Visit Diagnoses Not on filedocumented in this encounter"
--- OUTSIDE RECORDS SUMMARY | ~2020-08-06 | XMS | Encounter Summary ---
Demographics + + + | Address | [address] | | | [place] [address] | + + + | Home Phone [...] Providers + +------+ + | Care Clinical Nurse Educator Name | Role | Phone | [...] + + | 01/01/ | Telephone | [facility] | Kirk French | Other ([facility]) | | 2020 | | [facility] | MD Brea [address] | | | | | [facility] [address] | [address] | | | | | [address] | [place] [address] | | | | | [place], [place] | [phone] | | | | | [address] | | | | | | [phone] | | | +--------+ + + + [...] Miscellaneous Notes Telephone Encounter - Geri Bear, Machine Biller - 01/01/2020 11:09 AM PSTCalled and spoke with Kasie, states he will need to go to [facility] in [place] for this as their ma chine will allow patients to have pacemaker. Let her know we have no order for an MRI for hi m to be done, she states that she will contact patient in regards to this. Electronically si gned by Geri Bear, Machine Biller at 01/01/2020 11:09 AM PSTTelephone Encounter - Danielle medinaoneilRosy - 01/01/2020 8:33 AM PSTJuirineo, is calling regarding Other (Pacemaker) and would like a call back. Additional Call Details: States patient's pacemaker is not MRI compatible and is requestin g a call back to discuss referring patient to a location that is. Please call her back at [phone] and ask for Kasie or Christel. If this is a symptom based call, was patient offered triage? Not Applicable If this is a symptom based call and you were unable to immediately transfer the call to a p mia waste water operator was caller made aware that if [...] Dx); | | | | | [place] [address] | Pacemaker; | | | | | [phone] | Sinoatrial node | | | | | | dysfunction (HCC) | | | | | | with symptomatic | | | | | | bradycardia | +--------+ + + + + | 08/21/ | Implant | Cardiology | Daljit Singletary, | Remote Device | | 2020 | Monitor | | MD [address] | Interrogation | | | | | [place], | (Primary Dx); | | | | | [place] [address] | Pacemaker; | | | | | [phone] | Sinoatrial node | | | | | | dysfunction (HCC) | | | | | | with symptomatic | | | | | | bradycardia | +--------+ + + + + | 08/21/ | Implant | Cardiology | Daljit Singletary | Remote Device | | 2019 | Monitor | | MD [address] | Interrogation | | | | | [place], | (Primary Dx); | | | | | [place] [address] | Pacemaker; | | | | | [phone] | Sinoatrial node | | | | | | dysfunction (HCC) | | | | | | with symptomatic | | | | | | bradycardia | +--------+ + + + + | 08/21/ | Implant | Cardiology | Daljit Singletary, | Remote Device | | 2020 | Monitor | | MD [address] | Interrogation | | | | | [place], | (Primary Dx); | | | | | [place] [address] | Pacemaker; | | | | | [phone] | Sinoatrial node | | | | [...] Dx); | | | | | [place] [address] | Pacemaker; | | | | | [phone] | Sinoatrial node | | | | [...] W | | | | | | [place], | | | | | | [place] [address] | | | | | | [phone] | | | | | | | | +--------+ + + + + documented as of this encounter Visit Diagnoses Not on filedocumented in this encounter"
--- OUTSIDE RECORDS SUMMARY | ~2020-08-06 | XMS | Encounter Summary ---
Demographics + + + | Address | [address] | | | [place] [address] | + + + | Home Phone [...] Team Providers + +------+ + | Care Catering Manager Name | Role | Phone | + +------+ + PCP | Unavailable | + +------+ + Encounter Details +--------+ + + + + | Date | Type | Department | Care Team | Description | +--------+ + + + + | 11/05/ | [facility] | [facility] | Naresh Mckeon | | | 2009 | Encounter | MED CTR SLEEP | MD Chaya [address] | | | | | CENTER [address] | [place] | | | | | [place] | [place] [address] | | | | | [address] | [phone] | | | | | [phone] | | | +--------+ + + + [...] Interrogation | | | | | [place], | (Primary Dx); | | | | | [place] [address] | Pacemaker; | | | | | [phone] | Sinoatrial node | | | | | | dysfunction (HCC) | | | | | | with symptomatic | | | | | | bradycardia | +--------+ + + + + | 08/21/ | Implant | Cardiology | Daljit Singletary, | Remote Device | | 2019 | Monitor | | MD Chiquis Kauffmanar | Interrogation | | | | | [place], | (Primary Dx); | | | | | [place] [address] | Pacemaker; | | | | | [phone] | Sinoatrial node | | | | | | dysfunction (HCC) | | | | | | with symptomatic | | | | | | bradycardia | +--------+ + + + + | 08/21/ | Implant | Cardiology | Daljit Singletary, | Remote Device | | 2020 | Monitor | | MD [address] | Interrogation | | | | | [place], | (Primary Dx); | | | | | [place] [address] | Pacemaker; | | | | | [phone] | Sinoatrial node | | | | | | dysfunction ([facility]) | | | | | | with symptomatic | | | | | | bradycardia | +--------+ + + + + | 08/21/ | Implant | Cardiology | Daljit Singletary, | Remote Device | | 2019 | Monitor | | MD [address] | Interrogation | | | | | [place], | (Primary Dx); | | | | | [place] [address] | Pacemaker; | | | | | [phone] | Sinoatrial node | | | | | | dysfunction ([facility]) | | | | | | with symptomatic | | | | | | bradycardia | +--------+ + + + + | 08/21/ | Implant | Cardiology | Daljit Singletary, | Remote Device | | 2019 | Monitor | | MD [address] | Interrogation | | | | | [place], | (Primary Dx); | | | | | [place] [address] | Pacemaker; | | | | | [phone] | Sinoatrial node | | | | [...] | | | | | | [place] [address] | | | | | | [phone] | | | | | | | | +--------+ + + + + documented as of this encounter Visit Diagnoses Not on filedocumented in this encounter"
--- OUTSIDE RECORDS SUMMARY | ~2020-08-06 | XMS | Encounter Summary ---
Demographics + + + | Address | [address] | | | [place] [address] | + + + | Home Phone [...] Team Providers + +------+ + | Care Oven Drier Tender Name | Role | Phone | [...] | | Radiology | Diagnoses | Jose Armando | Pavel Echo | | | | | Sinoatrial | Jose, SHEET TAILER | [address] | | | | | node | [address] | [place], | | | | | dysfunction | [place] | [place] | | | | | (HCC) | [place], [place] | [address] | | | | | Coronary | [address] | Phone: | | | | | artery | Phone: | [phone] | | | | | disease | [phone] | Fax: | | | | | involving | Fax: | [phone] | | | | | [place] | [phone] | | | | | | coronary | | | | | | | artery of | | | | | | | [place] heart | | | | | | [...] | | | | Sinoatrial | Jose, SHEET TAILER | [address] | | | | | node | [address] | [place], | | | | | dysfunction | [place] | [place] | | | | | ([facility]) | [place], [place] | [address] | | | | | Coronary | [address] | Phone: | | | | | artery | Phone: | [phone] | | | | | disease | [phone] | Fax: | | | | | involving | Fax: | [phone] | | | | | [place] | [phone] | | | | | | coronary | | | | | | | artery of | | | | | | | [place] heart | | | | | | [...] + + + + | 06/16/ | [facility] | [facility] | Jose Angel, | Sinoatrial node | | 2016 | Encounter | MED CTR ECHO [address] | SHEET TAILER [address] | dysfunction (HCC) | | | | [address] [place] | [address] [place], [place] | with symptomatic | | | | [place] [address] | [address] | bradycardia; | | | | [phone] | | Coronary artery | | | | | Juvenal Blake, | disease involving | | | | | Technologist | [place] coronary | | | | | | artery of [place] | | | | | | heart [...] tablet by | 90 | 3 | 08/05/20 | | | succinate | mouth every [...] | Monitor | | MD [address] | Interrogation | | | | | [place], | (Primary Dx); | | | | | [place] [address] | Pacemaker; | | | | | [phone] | Sinoatrial node | | | | | | dysfunction (HCC) | | | | | | with symptomatic | | | | | | bradycardia | +--------+ + + + + | 08/21/ | Implant | Cardiology | Sydni Singletary, | Remote Device | | 2020 | Monitor | | MD [address] | Interrogation | | | | | [place], | (Primary Dx); | | | | | [place] [address] | Pacemaker; | | | | | [phone] | Sinoatrial node | | | | | | dysfunction (HCC) | | | | | | with symptomatic | | | | | | bradycardia | +--------+ + + + + | 08/21/ | Implant | Cardiology | Sydni Singletary, | Remote Device | | 2019 | Monitor | | MD [address] | Interrogation | | | | | [place], | (Primary Dx); | | | | | [place] [address] | Pacemaker; | | | | | [phone] | Sinoatrial node | | | | | | dysfunction ([facility]) | | | | | | with symptomatic | | | | | | bradycardia | +--------+ + + + + | 08/21/ | Implant | Cardiology | Sydni Singletary, | Remote Device | | 2019 | Monitor | | MD [address] | Interrogation | | | | | [place], | (Primary Dx); | | | | | [place] [address] | Pacemaker; | | | | | [phone] | Sinoatrial node | | | | | | dysfunction (HCC) | | | | | | with symptomatic | | | | | | bradycardia | +--------+ + + + + | 08/21/ | Implant | Cardiology | Sydni Singletary, | Remote Device | | 2019 | Monitor | | [address] | Interrogation | | | | | [place], | (Primary Dx); | | | | | [place] [address] | Pacemaker; | | | | | [phone] | Sinoatrial node | | | | [...] W | | | | | | [place], | | | | | | [place] [address] | | | | | | [phone] | | | | | | | [...] involving | | | | | | [place] coronary | | | | | | artery of [place] | | | | | | heart [...] Patient | [facility] | | [id number] Date of Study 06/16/2016 Number | - IMAGING | | Visit Number [id number] | | | Referring Physician JOSE ARMANDO GARCIA Number Date of 1960 | | | Sensor Specialist LUIS FERNANDO DUARTE Age | | | 56 year(s) Interpreting | | | GURJIT TROY | | | Terrazzo Helper SYDNI SINGLETARY, | | | Gender | | | Male Nurse Procedure Type of Study TTE | | | procedure: ECHO Complete. Procedure dateDate: 06/16/2016Start: 10:55 | | | AM Technical Quality: Adequate visualizationStudy Location: Echo | | | LabIndications: CAD [place]AVA[place] CORONARY ARTERY 414.01/ I25.10 and | | [...] BARRY Room Number SARAH | | Patient [id number] Date of Study 06/16/2016 Number Visit Number | | [id number] Referring Physician JOSE ARMANDO JOSE Number | | Date of 1960 Sensor Specialist LUIS FERNANDO RIGOBERTO RDS Age | | 56 year(s) Interpreting GURJIT TROY | | Terrazzo Helper SYDNI SINGLETARY, | | Gender Male NurseProcedureType of Study TTE | | procedure: ECHO Complete.Procedure dateDate: 06/16/2016Start: 10:55 AMTechnical Quality: | | Adequate visualizationStudy Location: Echo LabIndications: CAD [place]AVA[place] CORONARY ARTERY | | 414.01/ I25.10 and [...] [address] | [place] | [phone] | | [facility] | | [address] | | | - IMAGING | | [...] + + | Coronary artery disease involving [place] coronary artery of [place] heart without | | angina pectoris | [...]
--- OUTSIDE RECORDS SUMMARY | ~2020-08-06 | XMS | Encounter Summary ---
Demographics + + + | Address | [address] | | | [place] [address] | + + + | Home Phone [...] Providers + +------+ + | Care Salt Refiner Name | Role | Phone | [...] + | 07/31/ | Telephone | [facility] | Silvia, | AFSHAN | | 2019 | | CARDIOLOGY [address] | PARISA [place] [address] | | | | | [place], | [place], | | | | | [place] [address] | [place] [phone] | | | | | [phone] | [phone] | | | | | | | [...] ...........................................Magi Farr RN on 07/31/19 at 15:24 eleJulia Thurston General Car Yard Supervisor - 07/31/2019 1:37 PM PDTPatient scheduled for an nayan ointment on 08/01/2019 and is needing a fasting Lipid panel. Please order, thank you. Spoke to patient, he states that he will come in the morning to have his fasting labs done before his appointment. Electronically signed by Julia Allen General Car Yard Supervisor at 07/2019 1:40 PM PDTdocumented in this encounter Plan of Treatment +--------+ + + + + | Date | Type | Specialty | Care Team | Description | +--------+ + + + + | 08/21/ | Implant | Cardiology | Daljit Singletary, | Remote Device | | 2019 | Monitor | | MD [address] [place] | Interrogation | | | | | [place], | (Primary Dx); | | | | | [place] [address] | Pacemaker; | | | | | [phone] | Sinoatrial node | | | | | | dysfunction (HCC) | | | | | | with symptomatic | | | | | | bradycardia | +--------+ + + + + | 08/21/ | Implant | Cardiology | Daljit Singletary, | Remote Device | | 2020 | Monitor | | MD [address] [place] | Interrogation | | | | | [place], | (Primary Dx); | | | | | [place] [address] | Pacemaker; | | | | | [phone] | Sinoatrial node | | | | | | dysfunction (HCC) | | | | | | with symptomatic | | | | | | bradycardia | +--------+ + + + + | 08/21/ | Implant | Cardiology | Daljit Singletary, | Remote Device | | 2019 | Monitor | | MD [address] [place] | Interrogation | | | | | [place], | (Primary Dx); | | | | | [place] [address] | Pacemaker; | | | | | [phone] | Sinoatrial node | | | | | | dysfunction (HCC) | | | | | | with symptomatic | | | | | | bradycardia | +--------+ + + + + | 08/21/ | Implant | Cardiology | Daljit Singletary, | Remote Device | | 2019 | Monitor | | MD [address] [place] | Interrogation | | | | | [place], | (Primary Dx); | | | | | [place] [address] | Pacemaker; | | | | | [phone] | Sinoatrial node | | | | | | dysfunction (HCC) | | | | | | with symptomatic | | | | | | bradycardia | +--------+ + + + + | 08/21/ | Implant | Cardiology | Daljit Singletary, | Remote Device | | 2019 | Monitor | | MD [address] [place] | Interrogation | | | | | [place], | (Primary Dx); | | | | | [place] [address] | Pacemaker; | | | | | [phone] | Sinoatrial node | | | | [...] | | | | | | [place] [address] | | | | | | [phone] | | | | | | | [...] - Primary Mixed hyperlipidemia | + + | Remote [...]
--- OUTSIDE RECORDS SUMMARY | ~2020-08-06 | XMS | Encounter Summary ---
Demographics + + + | Address | [address] | | | [place] [address] | + + + | Home Phone [...] Providers + +------+ + | Care Elementary Supervisor Name | Role | Phone | + +------+ + | Kirk French MD | PCP | | + +------+ + Encounter Details +--------+ + + + + | Date | Type | Department | Care Team | Description | +--------+ + + + + | 04/07/ | Hospital | [facility] | Pia Akhtar | Spinal stenosis of | | 2016 | Encounter | MED CTR XRAY [address] | MD Sof[address] | lumbar region | | | | [place] | [address] | | | | | [place], [place] [address] | [place] [address] | | | | | [phone] | | | | | | | [...] + + + +---------+ + + | [place]-3 Fatty | CAPS, one capsule by | [...] Dx); | | | | | [place] [address] | Pacemaker; | | | | | [phone] | Sinoatrial node | | | | | | dysfunction (HCC) | | | | | | with symptomatic | | | | | | bradycardia | +--------+ + + + + | 08/21/ | Implant | Cardiology | Daljit Singletary, | Remote Device | | 2019 | Monitor | | MD [address] [place] | Interrogation | | | | | [place], | (Primary Dx); | | | | | [place] [address] | Pacemaker; | | | | | [phone] | Sinoatrial node | | | | | | dysfunction (HCC) | | | | | | with symptomatic | | | | | | bradycardia | +--------+ + + + + | 08/21/ | Implant | Cardiology | Daljit Singletary, | Remote Device | | 2019 | Monitor | | MD [address] [place] | Interrogation | | | | | [place], | (Primary Dx); | | | | | [place] [address] | Pacemaker; | | | | | [phone] | Sinoatrial node | | | | | | dysfunction (HCC) | | | | | | with symptomatic | | | | | | bradycardia | +--------+ + + + + | 08/21/ | Implant | Cardiology | Daljit Singletary, | Remote Device | | 2020 | Monitor | | MD [address] [place] | Interrogation | | | | | [place], | (Primary Dx); | | | | | [place] [address] | Pacemaker; | | | | | [phone] | Sinoatrial node | | | | | | dysfunction (HCC) | | | | | | with symptomatic | | | | | | bradycardia | +--------+ + + + + | 08/21/ | Implant | Cardiology | Daljit Singletary, | Remote Device | | 2019 | Monitor | | MD [address] [place] | Interrogation | | | | | [place], | (Primary Dx); | | | | | [place] [address] | Pacemaker; | | | | | [phone] | Sinoatrial node | | | | [...] W | | | | | | [place], | | | | | | [place] [address] | | | | | | [phone] | | | | | | | [...] neurogenic | | claudication | + + | Remote Device Interrogation [...]
--- OUTSIDE RECORDS SUMMARY | ~2020-08-06 | XMS | Encounter Summary ---
Demographics + + + | Address | [address] | | | [place] [address] | + + + | Home Phone [...] Providers + +------+ + | Care Central Office Repairer Supervisor Name | Role | Phone | [...] | Palpitations | [address] | | | | | Procedures | [address] | [address] [place] | | | | | ECHO | [place], | [place], [place] | | | | | Complete | [place] [address] | [address] | | | | | | Phone: | Phone: | | | | | | [phone] | | | | | | | Fax: | Fax: | | | | | | [phone] | [phone] | +--------+--------+ + + + + Encounter Details +--------+ + + + + | Date | Type | Department | Care Team | Description | +--------+ + + + + | 12/30/ | Hospital | [facility] | Daljit Singletary, | Palpitations | | 2012 - | Encounter | MED CTR XRAY [address] | [address] | | | | | [place] | [address] [place], | | | 01/01/ | | [place] [address] | [place] [address] | | | 2012 | | [phone] | [phone] | | | | | | | [...] + + + +---------+ + + | [place]-3 Fatty | CAPS, one capsule by | [...] 2019 | Monitor | | [address] | Interrogation | | | | | [place], | (Primary Dx); | | | | | [place] [address] | Pacemaker; | | | | | [phone] | Sinoatrial node | | | | | | dysfunction (HCC) | | | | | | with symptomatic | | | | | | bradycardia | +--------+ + + + + | 08/21/ | Implant | Cardiology | Daljit Singletary, | Remote Device | | 2019 | Monitor | | MD [address] [place] | Interrogation | | | | | [place], | (Primary Dx); | | | | | [place] [address] | Pacemaker; | | | | | [phone] | Sinoatrial node | | | | | | dysfunction (HCC) | | | | | | with symptomatic | | | | | | bradycardia | +--------+ + + + + | 08/21/ | Implant | Cardiology | Daljit Singletary, | Remote Device | | 2020 | Monitor | | MD [address] [place] | Interrogation | | | | | [place], | (Primary Dx); | | | | | [place] [address] | Pacemaker; | | | | | [phone] | Sinoatrial node | | | | | | dysfunction (HCC) | | | | | | with symptomatic | | | | | | bradycardia | +--------+ + + + + | 08/21/ | Implant | Cardiology | Daljit Singletary | Remote Device | | 2019 | Monitor | | MD [address] [place] | Interrogation | | | | | [place], | (Primary Dx); | | | | | [place] [address] | Pacemaker; | | | | | [phone] | Sinoatrial node | | | | | | dysfunction (HCC) | | | | | | with symptomatic | | | | | | bradycardia | +--------+ + + + + | 08/21/ | Implant | Cardiology | Daljit Singletary, | Remote Device | | 2020 | Monitor | | MD [address] [place] | Interrogation | | | | | [place], | (Primary Dx); | | | | | [place] [address] | Pacemaker; | | | | | [phone] | Sinoatrial node | | | | [...] | | | | | | [place], | | | | | | [place] [address] | | | | | | [phone] | | | | | | | [...] Performed At | + + + | [facility] | [facility] | | Department [address] [place] | [facility] | | [ rep ct [address]] [ rep ct city | [facility] | | st zip] Signed | - IMAGING | | | | | Patient Name: MOE GAY W | | | Physician: MIGUELINA : 1960 Age: 52 Sex: M Unit | | | #: [id number] Exam Date: 12/30/12 Location: | | | IMG Report #: [id number] Page: | | | %(RAD)RES..mtdd.print.filter("pg") of %(RAD) | | | RES..mtdd.print.filter("tpg") | | | | | | Accession Number: [id number] | | | E C H O C A R D I O G R A P H Y R E P O R T | | | HEIGHT: 76" WEIGHT: 270# | | | CIRCUIT BOARD REPAIR TECHNICIAN: JAMEEL REFERRING DR: TIMMY DRAKE DR: [...] | | | Transcribed Date/Time: 12/30/2012 16:34 Clinical Data Analyst: | | | <<Signature on File>> | | | Daljit | | | MD CLEOPATRA Singletary FASE01/02/13 0955 <Electronically signed by | | | Daljit Singletary MD, [facility] HEALTHSharee, FACP, FASE, FASNC> Rashadong | | | MD CLEOPATRA Singletary FASE 12/30/12 1608 Clinical Data Analyst: Jessica | | | Uahdeenhftois74/08/13 1634 Daljit Singletary MD FACC | | | FASE | | + + + + + + + + | Performing | Address | City/State/Zipcode | Phone Number | | Organization | | | | + + + + + | [facility] | [address] | [place] | [phone] | | [facility] | | [address] | | | - IMAGING | | [...]
--- OUTSIDE RECORDS SUMMARY | ~2020-08-06 | XMS | Encounter Summary ---
Demographics + + + | Address | [address] | | | [place] [address] | + + + | Home Phone [...] Team Providers + +------+ + | Care Sexer Name | Role | Phone | + +------+ + | Kirk French MD | PCP | | + +------+ + Encounter Details +--------+ + + + + | Date | Type | Department | Care Team | Description | +--------+ + + + + | 03/15/ | Hospital | [facility] | Conversion | | | 2017 | Encounter | [facility] | Transaction, | | | | | [address] [place] | Provider Unknown | | | | | [address] [place], [place] | [phone] | | | | | [address] | | | | | | [phone] | Kirk French | | | | | | MD Bre[place] [address] | | | | | | [place] [address] [place], | | | | | | [place] [address] | | | | | | [phone] | | | | | | | [...] + + + +---------+ + + | [place]-3 Fatty | CAPS, one capsule by | [...] tablet by | 90 | 3 | 08/01/20 | | | succinate | mouth every [...] | Monitor | | MD [address] [place] | Interrogation | | | | | [place], | (Primary Dx); | | | | | [place] [address] | Pacemaker; | | | | | [phone] | Sinoatrial node | | | | | | dysfunction (HCC) | | | | | | with symptomatic | | | | | | bradycardia | +--------+ + + + + | 08/21/ | Implant | Cardiology | Daljit Singletary, | Remote Device | | 2019 | Monitor | | MD [address] [place] | Interrogation | | | | | [place], | (Primary Dx); | | | | | [place] [address] | Pacemaker; | | | | | [phone] | Sinoatrial node | | | | | | dysfunction (HCC) | | | | | | with symptomatic | | | | | | bradycardia | +--------+ + + + + | 08/21/ | Implant | Cardiology | Daljit Singletary, | Remote Device | | 2019 | Monitor | | MD [address] [place] | Interrogation | | | | | [place], | (Primary Dx); | | | | | [place] [address] | Pacemaker; | | | | | [phone] | Sinoatrial node | | | | | | dysfunction (HCC) | | | | | | with symptomatic | | | | | | bradycardia | +--------+ + + + + | 08/21/ | Implant | Cardiology | Daljit Singletary, | Remote Device | | 2019 | Monitor | | MD [address] [place] | Interrogation | | | | | [place], | (Primary Dx); | | | | | [place] [address] | Pacemaker; | | | | | [phone] | Sinoatrial node | | | | | | dysfunction (HCC) | | | | | | with symptomatic | | | | | | bradycardia | +--------+ + + + + | 08/21/ | Implant | Cardiology | Daljit Singletary, | Remote Device | | 2019 | Monitor | | MD [address] [place] | Interrogation | | | | | [place], | (Primary Dx); | | | | | [place] [address] | Pacemaker; | | | | | [phone] | Sinoatrial node | | | | [...] | | | | | | [place] [address] | | | | | | [phone] | | | | | | | | +--------+ + + + + documented as of this encounter Visit Diagnoses Not on filedocumented in this encounter"
--- OUTSIDE RECORDS SUMMARY | ~2020-08-06 | XMS | Encounter Summary ---
Demographics + + + | Address | [address] | | | [place] [address] | + + + | Home Phone [...] Providers + +------+ + | Care Driver Messenger Name | Role | Phone | [...] + | 06/23/ | Telephone | [facility] | Michael Amanda, | No Show | | 2012 | | MEDICINE [place] | DO [address] | | | | | [address] | [place], [place] | | | | | [place], [place] | [address] | | | | | [address] | | | | | | [phone] | | | +--------+ + + + [...] | 08/21/ | Implant | Cardiology | Dlajit Singletary, | Remote Device | | 2019 | Monitor | | [facility] | Interrogation | | | | | [place], | (Primary Dx); | | | | | [place] [address] | Pacemaker; | | | | | [phone] | Sinoatrial node | | | | | | dysfunction (HCC) | | | | | | with symptomatic | | | | | | bradycardia | +--------+ + + + + | 08/21/ | Implant | Cardiology | Daljit Singletary, | Remote Device | | 2019 | Monitor | | MD [address] [place] | Interrogation | | | | | [place], | (Primary Dx); | | | | | [place] [address] | Pacemaker; | | | | | [phone] | Sinoatrial node | | | | | | dysfunction (HCC) | | | | | | with symptomatic | | | | | | bradycardia | +--------+ + + + + | 08/21/ | Implant | Cardiology | Daljit Singletary, | Remote Device | | 2019 | Monitor | | MD [address] [place] | Interrogation | | | | | [place], | (Primary Dx); | | | | | [place] [address] | Pacemaker; | | | | | [phone] | Sinoatrial node | | | | | | dysfunction (HCC) | | | | | | with symptomatic | | | | | | bradycardia | +--------+ + + + + | 08/21/ | Implant | Cardiology | Daljit Singletary, | Remote Device | | 2019 | Monitor | | MD [address] [place] | Interrogation | | | | | [place], | (Primary Dx); | | | | | [place] [address] | Pacemaker; | | | | | [phone] | Sinoatrial node | | | | | | dysfunction (HCC) | | | | | | with symptomatic | | | | | | bradycardia | +--------+ + + + + | 08/21/ | Implant | Cardiology | Daljit Singletary, | Remote Device | | 2019 | Monitor | | MD [address] | Interrogation | | | | | [place], | (Primary Dx); | | | | | [place] [address] | Pacemaker; | | | | | [phone] | Sinoatrial node | | | | [...] W | | | | | | [place], | | | | | | [place] [address] | | | | | | [phone] | | | | | | | | +--------+ + + + + documented as of this encounter Visit Diagnoses Not on filedocumented in this encounter"
--- OUTSIDE RECORDS SUMMARY | ~2020-08-06 | XMS | Encounter Summary ---
Demographics + + + | Address | [address] | | | [place] [address] | + + + | Home Phone [...] Team Providers + +------+ + | Care Primary Care Md Name | Role | Phone | + [...] 2019 | | GASTROENTEROLOGY | [address], [place] | | | | | [address] [place] | [address] [place], [place] | | | | | [address] [place], [place] | [address] | | | | | [address] | | | | | | [phone] | | | +--------+--------+ + + + [...] Dx); | | | | | [place] [address] | Pacemaker; | | | | | [phone] | Sinoatrial node | | | | | | dysfunction (HCC) | | | | | | with symptomatic | | | | | | bradycardia | +--------+ + + + + | 08/21/ | Implant | Cardiology | Daljit Singletary, | Remote Device | | 2019 | Monitor | | MD [address] | Interrogation | | | | | [place], | (Primary Dx); | | | | | [place] [address] | Pacemaker; | | | | | [phone] | Sinoatrial node | | | | | | dysfunction (HCC) | | | | | | with symptomatic | | | | | | bradycardia | +--------+ + + + + | 08/21/ | Implant | Cardiology | Daljit Singletary, | Remote Device | | 2019 | Monitor | | MD [address] [place] | Interrogation | | | | | [place], | (Primary Dx); | | | | | [place] [address] | Pacemaker; | | | | | [phone] | Sinoatrial node | | | | | | dysfunction (HCC) | | | | | | with symptomatic | | | | | | bradycardia | +--------+ + + + + | 08/21/ | Implant | Cardiology | Gemini Rashadotto, | Remote Device | | 2020 | Monitor | | MD [address] [place] | Interrogation | | | | | [place], | (Primary Dx); | | | | | [place] [address] | Pacemaker; | | | | | [phone] | Sinoatrial node | | | | | | dysfunction (HCC) | | | | | | with symptomatic | | | | | | bradycardia | +--------+ + + + + | 08/21/ | Implant | Cardiology | Daljit Singletary, | Remote Device | | 2019 | Monitor | | MD [address] [place] | Interrogation | | | | | [place], | (Primary Dx); | | | | | [place] [address] | Pacemaker; | | | | | [phone] | Sinoatrial node | | | | [...] | | | | | | [place] [address] | | | | | | [phone] | | | | | | | | +--------+ + + + + documented as of this encounter Visit Diagnoses Not on filedocumented in this encounter"
--- OUTSIDE RECORDS SUMMARY | ~2020-08-06 | XMS | Encounter Summary ---
Demographics + + + | Address | [address] | | | [place] [address] | + + + | Home Phone [...] Providers + +------+ + | Care Glass Cutter Name | Role | Phone | [...] | 02/15/ | Office | [facility] [place] | [place], | Symptomatic PVCs | | 2012 | Visit | CARDIOLOGY [address] | [place]ISA [place] [address] | (Primary Dx); | | | | [place], | [place], | Bradycardia; HTN | | | | [place] [address] | [place] [address] | (hypertension) | | | | [phone] | [phone] | | | | | | | [...] at which time patient was going to [place] for water pollution specialist co nsult and PVC ablation. Since [...] tablet Take 1,000 mg by mouth Daily. [place]-3 Fatty Acids (SALMON OIL-1000 PO) CAPS, one [...] performed by Dr. Gambino at [facility] on 01/30/2013. Patient had spontaneous PVCs [...] to go back in 3 days to [place] for an attempt of ablation under general [...] He is in a class II of [employer] functional class. There is no [...] been encouraged to keep his appointment with water pollution specialist this coming y to attempt ablation therapy. 4. Follow up appointment in 4-6 weeks. I, PARISA Russell, saw this patient under the direct supervision of Daljit Singletary MD Portions of this report were transcribed using voice recognition software. Every effort wa s made to ensure accuracy; however, inadvertent computerized physiology teacher errors may be pre sent. documented in this encounter Plan of Treatment +--------+ + + + + | Date | Type | Specialty | Care Team | Description | +--------+ + + + + | 08/21/ | Implant | Cardiology | Daljit Singletary, | Remote Device | | 2019 | Monitor | | [address] [place] | Interrogation | | | | | [place], | (Primary Dx); | | | | | [place] [address] | Pacemaker; | | | | | [phone] | Sinoatrial node | | | | | | dysfunction (HCC) | | | | | | with symptomatic | | | | | | bradycardia | +--------+ + + + + | 08/21/ | Implant | Cardiology | Daljit Singletary, | Remote Device | | 2019 | Monitor | | [address] [place] | Interrogation | | | | | [place], | (Primary Dx); | | | | | [place] [address] | Pacemaker; | | | | | [phone] | Sinoatrial node | | | | | | dysfunction (HCC) | | | | | | with symptomatic | | | | | | bradycardia | +--------+ + + + + | 08/21/ | Implant | Cardiology | WongsuDaljit parkinson, | Remote Device | | 2019 | Monitor | | MD [address] [place] | Interrogation | | | | | [place], | (Primary Dx); | | | | | [place] [address] | Pacemaker; | | | | | [phone] | Sinoatrial node | | | | | | dysfunction (HCC) | | | | | | with symptomatic | | | | | | bradycardia | +--------+ + + + + | 08/21/ | Implant | Cardiology | Daljit Singletary, | Remote Device | | 2019 | Monitor | | MD [address] [place] | Interrogation | | | | | [place], | (Primary Dx); | | | | | [place] [address] | Pacemaker; | | | | | [phone] | Sinoatrial node | | | | | | dysfunction (HCC) | | | | | | with symptomatic | | | | | | bradycardia | +--------+ + + + + | 08/21/ | Implant | Cardiology | Daljit Singletary, | Remote Device | | 2020 | Monitor | | MD [address] [place] | Interrogation | | | | | [place], | (Primary Dx); | | | | | [place] [address] | Pacemaker; | | | | | [phone] | Sinoatrial node | | | | [...] W | | | | | | [place], | | | | | | [place] [address] | | | | | | [phone] | | | | | | | [...]
--- OUTSIDE RECORDS SUMMARY | ~2020-08-06 | XMS | Encounter Summary ---
Demographics + + + | Address | [address] [place] [address] [address] | | | [place] [address] | + + + | Home Phone [...] [place] | | | | | [address] | | + + + + + Care Team Providers + +------+ + | Care Respooler Name | Role | Phone | + [...]
--- OUTSIDE RECORDS SUMMARY | ~2020-08-06 | XMS | Encounter Summary ---
Demographics + + + | Address | [address] [place] [address] [address] | | | [place] [address] | + + + | Home Phone [...] [place] | | | | | [address] | | + + + + + Care Team Providers + +------+ + | Care Curatorial Specialist Name | Role | Phone | + +------+ + | Darion Holden DO | PCP | | + +------+ + Reason for Visit +--------+--------+ + | Reason | Onset | Comments | | | Date | | +--------+--------+ + | Other | 06/17/ | VM | | | 2020 | | +--------+--------+ + Encounter Details +--------+ + + + + | Date | Type | Department | Care Team | Description | +--------+ + + + + | 06/17/ | Telephone | Digestive Health | Bridgette Rios, | Other () | | 2020 | | Center at [facility] [address] | MD [address] | | | | | [address] | [place], [place] | | | | | [facility] and | [address] | | | | | [facility] [address] | [phone] | | | | | [place], [place] | | | | | | [address] | | | | | | [phone] | | | +--------+ + + + [...] Telephone Encounter - Brittany Sow MA - 06/18/2020 1:41 PM PDTLetter created and sent to patient on behalf of Dr. Rios elephone Encounter - Brittany Sow MA - 06/18/2020 9:14 AM PDTFormatting o f this note might be different from the original. Placed call to patient and he states that he needs a letter from us stating that he had cam e to see us on 09/28/[address] Rios for a medical appointment with diagnosis from h er on it. It needs to state that he had to wait eight months for the appointment. Patient st ates that if letter is written the DA will drop charges against him for driving while suspen ded when driving to us for his appointment. Patient states that it needs to be on our letter head and mailed to his address in [place]. Verified mailing address with patient. Allyson Diehl, RN Brittany Sow MA Caller: Unspecified (Yesterday, 3:28 PM) Newton Mercado, Can you call and get more info on what he's looking for? We can write a letter that says he has been seeing Dr. Rios in GI clinic since that time, is that all he's needing? Thanks, Allyson elephone Encounter - Netta Alexander - 06/17/2020 3:28 PM PDTPATIENT LEFT VOICE MESSAGE ON 06/17/20 AT 2:58 REGARDING stating that he needs a letter stating that he started treatment in September 019 so his legal charges can be dropped Please return call documented in this encou nter Plan of Treatment Not on filedocumented as of this encounter Visit Diagnoses Not on filedocumented in this encounter"
--- OUTSIDE RECORDS SUMMARY | ~2020-08-06 | XMS | Encounter Summary ---
Demographics + + + | Address | [address] | | | [place] [address] | + + + | Home Phone [...] Team Providers + +------+ + | Care Vacuum Pan Tender Name | Role | Phone | + +------+ + | Kirk French MD | PCP | | + +------+ + Encounter Details +--------+ + + + + | Date | Type | Department | Care Team | Description | +--------+ + + + + | 10/25/ | Hospital | [facility] | Kirk French | Chronic pain | | 2017 | Encounter | MED CTR ULTRASOUND | MD Brea [address] | disorder; Stomach | | | | [address] [place] | [address] | ache; Obesity, | | | | [place], [place] | [place] [address] | unspecified | | | | [address] | [phone] | classification, | | | | [phone] | | unspecified obesity | | | [...] + + + +---------+ + + | [place]-[employer] Fatty | CAPS, one capsule by [...] Dx); | | | | | [place] [address] | Pacemaker; | | | | | [phone] | Sinoatrial node | | | | | | dysfunction (HCC) | | | | | | with symptomatic | | | | | | bradycardia | +--------+ + + + + | 08/21/ | Implant | Cardiology | Daljit Singletary, | Remote Device | | 2019 | Monitor | | MD [address] | Interrogation | | | | | [place], | (Primary Dx); | | | | | [place] [address] | Pacemaker; | | | | | [phone] | Sinoatrial node | | | | | | dysfunction (HCC) | | | | | | with symptomatic | | | | | | bradycardia | +--------+ + + + + | 08/21/ | Implant | Cardiology | Daljit Singletary, | Remote Device | | 2019 | Monitor | | MD [address] | Interrogation | | | | | [place], | (Primary Dx); | | | | | [place] [address] | Pacemaker; | | | | | [phone] | Sinoatrial node | | | | | | dysfunction (HCC) | | | | | | with symptomatic | | | | | | bradycardia | +--------+ + + + + | 08/21/ | Implant | Cardiology | Daljit Singletary, | Remote Device | | 2019 | Monitor | | MD [address] | Interrogation | | | | | [place], | (Primary Dx); | | | | | [place] [address] | Pacemaker; | | | | | [phone] | Sinoatrial node | | | | | | dysfunction (HCC) | | | | | | with symptomatic | | | | | | bradycardia | +--------+ + + + + | 08/21/ | Implant | Cardiology | Daljit Singletary, | Remote Device | | 2019 | Monitor | | MD Chiquis [address] | Interrogation | | | | | [place], | (Primary Dx); | | | | | [place] [address] | Pacemaker; | | | | | [phone] | Sinoatrial node | | | | [...] [place] | | | | | | [address] [place], | | | | | | [place] [address] | | | | | | [phone] | | | | | | | [...] | Loss of weight | + + | Remote Device Interrogation [...]
--- OUTSIDE RECORDS SUMMARY | ~2020-08-06 | XMS | Encounter Summary ---
Demographics + + + | Address | [address] | | | [place] [address] | + + + | Home Phone [...] Providers + +------+ + | Care Product Development Carpenter Name | Role | Phone | + +------+ + PCP | Unavailable | + +------+ + Encounter Details +--------+ + + + + | Date | Type | Department | Care Team | Description | +--------+ + + + + | 10/19/ | Hospital | [facility] | | | | 1992 | Encounter | MED CTR EMERGENCY | | | | | | CENTER [address] | | | | | | [place] | | | | | | [address] | | | | | | [phone] | | | +--------+ + + + [...] | Monitor | | MD [address] | Interrogation | | | | | [place], | (Primary Dx); | | | | | [place] [address] | Pacemaker; | | | | | [phone] | Sinoatrial node | | | | | | dysfunction (HCC) | | | | | | with symptomatic | | | | | | bradycardia | +--------+ + + + + | 08/21/ | Implant | Cardiology | Daljit Singletary, | Remote Device | | 2019 | Monitor | | MD [address] | Interrogation | | | | | [place], | (Primary Dx); | | | | | [place] [address] | Pacemaker; | | | | | [phone] | Sinoatrial node | | | | | | dysfunction (HCC) | | | | | | with symptomatic | | | | | | bradycardia | +--------+ + + + + | 08/21/ | Implant | Cardiology | Daljit Singletary, | Remote Device | | 2019 | Monitor | | MD [address] | Interrogation | | | | | [place], | (Primary Dx); | | | | | [place] [address] | Pacemaker; | | | | | [phone] | Sinoatrial node | | | | | | dysfunction (HCC) | | | | | | with symptomatic | | | | | | bradycardia | +--------+ + + + + | 08/21/ | Implant | Cardiology | Daljit Singletary, | Remote Device | | 2019 | Monitor | | MD [address] | Interrogation | | | | | [place], | (Primary Dx); | | | | | [place] [address] | Pacemaker; | | | | | [phone] | Sinoatrial node | | | | | | dysfunction (HCC) | | | | | | with symptomatic | | | | | | bradycardia | +--------+ + + + + | 08/21/ | Implant | Cardiology | Daljit Singletary, | Remote Device | | 2019 | Monitor | | MD [address] | Interrogation | | | | | [place], | (Primary Dx); | | | | | [place] [address] | Pacemaker; | | | | | [phone] | Sinoatrial node | | | | [...] | | | | | | [place] [address] | | | | | | [phone] | | | | | | | | +--------+ + + + + documented as of this encounter Visit Diagnoses Not on filedocumented in this encounter"
--- OUTSIDE RECORDS SUMMARY | ~2020-08-06 | XMS | Encounter Summary ---
Demographics + + + | Address | [address] [place] [address] [address] | | | [place] [address] | + + + | Home Phone [...] [place] | | | | | [address] | | + + + + + Care Team Providers + +------+ + | Care Fire Engine Pump Operator Name | Role | Phone | [...] | | | | | Unintentiona | [address] | | | | | | l weight | Ave | | | | | | loss | [facility] [place] | | | | | | Abdominal | [address] | | | | | | cramping | Phone: | | | | | | Chronic | [phone] | | | | | | diarrhea | Fax: | | | | | | Rectal | [phone] | | | | | | bleeding [...] | | +--------+--------+ + | Other | 12/18/ | | | | 2020 | | +--------+--------+ + Encounter Details +--------+ + + + + | Date | Type | Department | Care Team | Description | +--------+ + + + + | 12/18/ | Telephone | Dig[facility]ive [facility] | Bridgette Rios, | Other | | 2019 | | Center at [facility] [address] | MD [address] | | | | | [address] | [place], [place] | | | | | for [facility] and | [address] | | | | | [facility] | [phone] | | | | | [place], [place] | | | | | | [address] | | | | | | [phone] | | | +--------+ + + + [...] Encounter - Allyson Diehl RN - 01/23/2020 2:19 PM PSTLocal colonoscopy and capsule endoscopy not completed, per Amilcar's report it was cancelled by the facility due to v irus outbreak. He would like to reschedule with a different local practice. Will look into [facility] for referrals.Electronically signed by Allyson Diehl RN at 01/2020 2:20 PM PSTTelephone Renée - Allyson Diehl RN - 01/04/2020 9:55 AM PSTPer CareEverywhere notes scheduled 01/21 for local colo and capsule endoscopy. Electronically sig tremaine by Allyson Diehl RN at 01/04/2020 9:56 AM PSTTelephone Yahaira Samaniego RN - 12/25/2019 2:20 PM PSTLVM acknowledging message, asking for call back when he has d ate of procedures. Requested call back if symptoms worsen in the meantime.Electronically sig tremaine by Allyson Diehl RN at 12/25/2019 2:21 PM PSTTelephone Encounter - Bridgette Santizo - 0 12/25/2019 1:11 PM PSTPt lvm 12/25 at 10:42 AM Said he just called [facility] and they will be scheduling capsule/pill at same time as co lonoscopy. Pt wanted to let clinical team know. Electronically signed by Bridgette Santizo at 01/2020 1:13 PM PSTTelephone Bridgette Toscano - 12/21/2019 1:06 PM PSTPt lvm 12/21 a t 11:52 AM Said he called Dr. Deal's office in [facility], canceled his appt to swallow camera becau se he needs colonoscopy and wants them done at the same time. He said he will not hear back from them until Wednesday. Pt said he is still passing quite a bit of blood and it's not going away. Wanted to let clinical team know. P M PSTTelephone Encounter - Allyson Diehl RN - 12/21/2019 9:52 AM PSTFaxed referral for colonoscopy and capsule to [facility] as below, f# . Spoke with Amilcar, he indicates understanding. His capsule is scheduled there on Wednesday, he i sn't sure if he wants to cancel this so he can have it done same time as the colonoscopy - s raquel we don't know how far out that will be. He will further consider, and reconsider coming to [facility] for testing as well. Asked him to call back to let us know. elephone Encounter - Malik Alvares RN - 12/20/2019 1:[address] Rios's recommendations with the pt. Pt declined co jaye to [facility] for colonoscopy and capsule study because it is too far away from his home. Pt did verbalized understanding and agreement with plan however. Pt said his former GI provider with the practice near him home has retired and he is not es tablished with a new provider because whenever he calls them to establish care; either no on e calls him back or they he is not able to get through on the phone. Amilcar asked if I would call his local GI provider for him and ask how he can get in for care . I called the practice for the pt and asked how he can establish care. [address] [address] I spoke with a staff member and she said: their practice has lost providers due to retireme nts recently. The only providers left are Dr. Figueroa and Dr. Gandhi and currently they ar e booking out into January for urgent referrals. I explained the pt's situation and the urgency of being seen because of his symptoms. I was told that the pt may be able to get an urgent capsule study and colonoscopy done without es tablishing care. If we placed an urgent referral, the pt's records would be reviewed by a pr ovider and he could get scheduled for the capsule study and colonoscopy. She said turn aroun d time on this was 48 hours once the referral reached them. Message routed to Dr. Rios to see if she'd like the referral placed in this manner. Refe rral order pended and routed. 2:1 7 PM PSTTelephone Encounter - Netta Alexander - 12/20/2019 10:56 AM PSTPATIENT LEFT VOICE M ESSAGE ON 12/20/19 AT 9:12 REGARDING RETURNING CALL Please return call elephone Encounter - Allyson Velazquez RN - 12/19/2019 3:12 PM PST LVM requesting call back to discuss. Would be colonoscopy here next 2-3 weeks if possible. He could see if his local GI would co ordinate if he doesn't want to travel here, but we are more than happy to do procedure. ----- Message ----- From: Bridgette Rios MD Sent: 12/19/2019 2:37 PM PST To: Allyson Diehl RN I think he should have repeat colonoscopy. I wonder if he could prep for full colon and do capsule at same time?? elephone Encounter - Allyson Diehl RN - 12/18/2019 12:25 PM PSTSpoke with Amilcar fontenot new onset blood in stool in the last 2 weeks. He first noticed it 2 weeks ago but figured it was hemorrhoids and "didn't think much of it ." Not there is "lots of blood" and sometimes it is darker with clots. In the last day his stool was dark black to then bright red on the end, then just blood out of his rectum into the toilet bowl. Denies dizziness or LOC. His capsule endoscopy was rescheduled to 12/25/19 locally. He reports he has gained 17 lbs ("I'm a good cook") I asked if he had swelling to see if it was water weight, but he does not have swelling per his report. Asked him to update his PCP as well, and will get back to him with Dr. Rios's response. elephone Encounter - Mel Kennedy - 12/18/2019 12:05 PM PSTPerson calling? (Patient, spouse, caregiver, medical office, etc): Reason for call: Pt called in and he reported that there's a lot of blood coming out, it w as started 2 weeks ago and now its getting worse. pt said it was started with a bright blood and become dark blood and its in the stool lync'd RN RN will call him back Provider / Specialty: Dr. Rios Call [...]
--- OUTSIDE RECORDS SUMMARY | ~2020-08-06 | XMS | Encounter Summary ---
Demographics + + + | Address | [address] | | | [place] [address] | + + + | Home Phone [...] Providers + +------+ + | Care Flyer Maker Name | Role | Phone | [...] + + | Closed | Specialty | | Diagnoses | Manolo, | Harpal Cai, | | | Services | | Left ankle | Kirk Guidry, | [address] | | | Required | | pain, | MD [address] | [address] | | | | | unspecified | [address] | [place], | | | | | chronicity | [address] | [place] [address] | | | | | Low back | [place], [place] | Phone: | | | | | pain, | [address] | [phone] | | | | | unspecified | Phone: | Fax: | | | | | back pain | [phone] | [phone] | | | | | laterality, | Fax: | | | | | | unspecified | [phone] | | | | | | chronicity, | | | | | | | unspecified | | | | | | | whether | | | | | | | sciatica | | | | | | | present | | | | | | | Neuralgia | | | +--------+ + + + [...] + + | 06/11/ | Telephone | [facility] | Kirk French | Referral | | 2020 | | [facility] | MD [address] | | | | | [facility] [address] | [address] | | | | | [address] | [place] [address] | | | | | [place], [place] | [phone] | | | | | [address] | | | | | | [phone] | | | +--------+ + + + [...] Miscellaneous Notes Telephone Encounter - Geri Bear, Melter Supervisor Electric [employer] Furnace - 06/11/2020 4:44 PM PDTPlease sig n [...] stretch the med out. He also mentannie galdamezd taking over the counter meds. Patient is requesting high priority referral to [facility] for pain management. I believe he also had another question about taking Lyrica, but when I called back to clarify this, it went t o voicemail. My guess is he may be wanting to discuss medication options. [phone] (home) Opal He documented in this enco [...] Dx); | | | | | [place] [address] | Pacemaker; | | | | | [phone] | Sinoatrial node | | | | | | dysfunction (HCC) | | | | | | with symptomatic | | | | | | bradycardia | +--------+ + + + + | 08/21/ | Implant | Cardiology | Daljit Singletary, | Remote Device | | 2019 | Monitor | | MD [address] | Interrogation | | | | | [place], | (Primary Dx); | | | | | [place] [address] | Pacemaker; | | | | | [phone] | Sinoatrial node | | | | | | dysfunction (HCC) | | | | | | with symptomatic | | | | | | bradycardia | +--------+ + + + + | 08/21/ | Implant | Cardiology | Daljit Singletary, | Remote Device | | 2019 | Monitor | | MD [address] | Interrogation | | | | | [place], | (Primary Dx); | | | | | [place] [address] | Pacemaker; | | | | | [phone] | Sinoatrial node | | | | | | dysfunction (HCC) | | | | | | with symptomatic | | | | | | bradycardia | +--------+ + + + + | 08/21/ | Implant | Cardiology | Daljit Singletary, | Remote Device | | 2019 | Monitor | | MD [address] | Interrogation | | | | | [place], | (Primary Dx); | | | | | [place] [address] | Pacemaker; | | | | | [phone] | Sinoatrial node | | | | | | dysfunction (HCC) | | | | | | with symptomatic | | | | | | bradycardia | +--------+ + + + + | 08/21/ | Implant | Cardiology | Daljit Singletary, | Remote Device | 2019 | Monitor | | [address] [facility] | Interrogation | | | | | [place], | (Primary Dx); | | | | | [place] [address] | Pacemaker; | | | | | [phone] | Sinoatrial node | | | | [...] | | | | | | [place], | | | | | | [place] [address] | | | | | | [phone] | | | | | | | [...] neuritis, and radiculitis, unspecified | + + | Remote Device [...]
--- OUTSIDE RECORDS SUMMARY | ~2020-08-06 | XMS | Encounter Summary ---
Demographics + + + | Address | [address] | | | [place] [address] | + + + | Home Phone [...] Providers + +------+ + | Care Cyber Security Architect Name | Role | Phone [...] 2019 | | GASTROENTEROLOGY | [address], [place] | | | | | [address] [place] | [address] [place], [place] | | | | | [address] [place], [place] | [address] | | | | | [address] | | | | | | [phone] | | | +--------+ + + + [...] | Monitor | | MD [address] | Interrogation | | | | | [place], | (Primary Dx); | | | | | [place] [address] | Pacemaker; | | | | | [phone] | Sinoatrial node | | | | | | dysfunction (HCC) | | | | | | with symptomatic | | | | | | bradycardia | +--------+ + + + + | 08/21/ | Implant | Cardiology | Daljit Singletary, | Remote Device | | 2019 | Monitor | | MD [address] | Interrogation | | | | | [place], | (Primary Dx); | | | | | [place] [address] | Pacemaker; | | | | | [phone] | Sinoatrial node | | | | | | dysfunction (HCC) | | | | | | with symptomatic | | | | | | bradycardia | +--------+ + + + + | 08/21/ | Implant | Cardiology | Daljit Singletary, | Remote Device | | 2020 | Monitor | | MD [address] | Interrogation | | | | | [place], | (Primary Dx); | | | | | [place] [address] | Pacemaker; | | | | | [phone] | Sinoatrial node | | | | | | dysfunction (HCC) | | | | | | with symptomatic | | | | | | bradycardia | +--------+ + + + + | 08/21/ | Implant | Cardiology | Daljit Singletary, | Remote Device | | 2019 | Monitor | | MD [address] | Interrogation | | | | | [place], | (Primary Dx); | | | | | [place] [address] | Pacemaker; | | | | | [phone] | Sinoatrial node | | | | | | dysfunction (HCC) | | | | | | with symptomatic | | | | | | bradycardia | +--------+ + + + + | 08/21/ | Implant | Cardiology | Daljit Singletary, | Remote Device | | 2020 | Monitor | | MD [address] | Interrogation | | | | | [place], | (Primary Dx); | | | | | [place] [address] | Pacemaker; | | | | | [phone] | Sinoatrial node | | | | [...] | | | | | | [place] [address] | | | | | | [phone] | | | | | | | | +--------+ + + + + documented as of this encounter Visit Diagnoses Not on filedocumented in this encounter"
--- OUTSIDE RECORDS SUMMARY | ~2020-08-06 | XMS | Encounter Summary ---
Demographics + + + | Address | [address] | | | [place] [address] | + + + | Home Phone [...] Providers + +------+ + | Care Accounts Collector Name | Role | Phone | [...] | 10/26/ | Refill | [facility] [place] | Kirk French | Medication Refill | | 2019 | | GASTROENTEROLOGY | MD [address] | | | | | [address] [facility] | [address] | | | | | [address] [place], [place] | [place] [address] | | | | | [address] | [phone] | | | | | [phone] | | | +--------+--------+ + + + [...] PSTRefill Shanell ctronically signed by Geri Bear Stain Applicator at 10/26/2019 1:47 PM PSTdocumented in this [...] Interrogation | | | | | [place], | (Primary Dx); | | | | | [place] [address] | Pacemaker; | | | | | [phone] | Sinoatrial node | | | | | | dysfunction (HCC) | | | | | | with symptomatic | | | | | | bradycardia | +--------+ + + + + | 08/21/ | Implant | Cardiology | Daljit Singletary, | Remote Device | | 2019 | Monitor | | MD [address] | Interrogation | | | | | [place], | (Primary Dx); | | | | | [place] [address] | Pacemaker; | | | | | [phone] | Sinoatrial node | | | | | | dysfunction (HCC) | | | | | | with symptomatic | | | | | | bradycardia | +--------+ + + + + | 08/21/ | Implant | Cardiology | Daljit Singletary, | Remote Device | | 2020 | Monitor | | MD [address] | Interrogation | | | | | [place], | (Primary Dx); | | | | | [place] [address] | Pacemaker; | | | | | [phone] | Sinoatrial node | | | | | | dysfunction (HCC) | | | | | | with symptomatic | | | | | | bradycardia | +--------+ + + + + | 08/21/ | Implant | Cardiology | Daljit Singletary, | Remote Device | | 2019 | Monitor | | MD [address] | Interrogation | | | | | [place], | (Primary Dx); | | | | | [place] [address] | Pacemaker; | | | | | [phone] | Sinoatrial node | | | | | | dysfunction (HCC) | | | | | | with symptomatic | | | | | | bradycardia | +--------+ + + + + | 08/21/ | Implant | Cardiology | Daljit Singletary, | Remote Device | | 2019 | Monitor | | MD [address] | Interrogation | | | | | [place], | (Primary Dx); | | | | | [place] [address] | Pacemaker; | | | | | [phone] | Sinoatrial node | | | | [...] | | | | | | [place] [address] | | | | | | [phone] | | | | | | | | +--------+ + + + + documented as of this encounter Visit Diagnoses Not on filedocumented in this encounter"
--- OUTSIDE RECORDS SUMMARY | ~2020-08-06 | XMS | Encounter Summary ---
Demographics + + + | Address | [address] | | | [place] [address] | + + + | Home Phone [...] Monitor | CARDIOLOGY [address] | [address] | Interrogation | | | | [place], | [place], | (Primary Dx); | | | | [place] [address] | [place] [address] | Presence of | | | | [phone] | [phone] | permanent cardiac | | | | [...] (HCC)Date of Remote Interrogation: 11/06/19 Refer to [facility] documentation and remote PDF scanned into [employer] for remote interrogation re sults. Data collected [...] Interrogation | | | | | [place], | (Primary Dx); | | | | | [place] [address] | Pacemaker; | | | | | [phone] | Sinoatrial node | | | | | | dysfunction (HCC) | | | | | | with symptomatic | | | | | | bradycardia | +--------+ + + + + | 08/21/ | Implant | Cardiology | Daljit Singletary, | Remote Device | | 2019 | Monitor | | MD [address] | Interrogation | | | | | [place], | (Primary Dx); | | | | | [place] [address] | Pacemaker; | | | | | [phone] | Sinoatrial node | | | | | | dysfunction (HCC) | | | | | | with symptomatic | | | | | | bradycardia | +--------+ + + + + | 08/21/ | Implant | Cardiology | Daljit Singletary, | Remote Device | | 2019 | Monitor | | MD [address] | Interrogation | | | | | [place], | (Primary Dx); | | | | | [place] [address] | Pacemaker; | | | | | [phone] | Sinoatrial node | | | | | | dysfunction (HCC) | | | | | | with symptomatic | | | | | | bradycardia | +--------+ + + + + | 08/21/ | Implant | Cardiology | Daljit Singletary, | Remote Device | | 2019 | Monitor | | MD [address] | Interrogation | | | | | [place], | (Primary Dx); | | | | | [place] [address] | Pacemaker; | | | | | [phone] | Sinoatrial node | | | | | | dysfunction (HCC) | | | | | | with symptomatic | | | | | | bradycardia | +--------+ + + + + | 08/21/ | Implant | Cardiology | Daljit Singletary, | Remote Device | | 2019 | Monitor | | MD [address] [place] | Interrogation | | | | | [place], | (Primary Dx); | | | | | [place] [address] | Pacemaker; | | | | | [phone] | Sinoatrial node | | | | [...] [address] | | | | | | [place], | | | | | | [place] [address] | | | | | | [phone] | | | | | | | [...] remote PDF scanned into | | | [facility] for remote interrogation results. Data collected [...]
--- OUTSIDE RECORDS SUMMARY | ~2020-08-06 | XMS | Encounter Summary ---
Demographics + + + | Address | [address] | | | [place] [address] | + + + | Home Phone [...] Providers + +------+ + | Care Corn Husker Machine Operator Name | Role | Phone [...] + + | 04/10/ | Telephone | [facility] | Matthew Uriarte | Surgery Appointment | | 2019 | | [address] | MD Tawanna [address] | | | | | [place] | [address] | | | | | [address] | [place], [place] | | | | | [phone] | [address] | | | | | | [phone] | | | | | | | [...] Kira Montoya RN - 04/10/2019 2:33 PM FRANCYFrousmane called back and he talked with Faby, receiving all directions. He has no questions as will proceed as sche duled. elephone En counter - Kira Montoya RN - 04/10/2019 9:28 AM Wes calls back and is given the details of surgery. She will try and call him and let him know. I also mailed pre op instru ctions to patient and [facility]ed [facility] [place]. elephone Encounter - Kira Montoya RN - [...] Dx); | | | | | [place] [address] | Pacemaker; | | | | | [phone] | Sinoatrial node | | | | | | dysfunction (HCC) | | | | | | with symptomatic | | | | | | bradycardia | +--------+ + + + + | 08/21/ | Implant | Cardiology | Daljit Singletary, | Remote Device | | 2020 | Monitor | | MD [address] | Interrogation | | | | | [place], | (Primary Dx); | | | | | [place] [address] | Pacemaker; | | | | | [phone] | Sinoatrial node | | | | | | dysfunction (HCC) | | | | | | with symptomatic | | | | | | bradycardia | +--------+ + + + + | 08/21/ | Implant | Cardiology | Daljit Singletary, | Remote Device | | 2019 | Monitor | | MD [address] | Interrogation | | | | | [place], | (Primary Dx); | | | | | [place] [address] | Pacemaker; | | | | | [phone] | Sinoatrial node | | | | | | dysfunction (HCC) | | | | | | with symptomatic | | | | | | bradycardia | +--------+ + + + + | 08/21/ | Implant | Cardiology | Daljit Singletary, | Remote Device | | 2020 | Monitor | | MD [address] | Interrogation | | | | | [place], | (Primary Dx); | | | | | [place] [address] | Pacemaker; | | | | | [phone] | Sinoatrial node | | | | | | dysfunction (HCC) | | | | | | with symptomatic | | | | | | bradycardia | +--------+ + + + + | 08/21/ | Implant | Cardiology | Daljit Singletary, | Remote Device | 2019 | Monitor | | [address] | Interrogation | | | | | [place], | (Primary Dx); | | | | | [place] [address] | Pacemaker; | | | | | [phone] | Sinoatrial node | | | | [...] W | | | | | | [place], | | | | | | [place] [address] | | | | | | [phone] | | | | | | | | +--------+ + + + + documented as of this encounter Visit Diagnoses Not on filedocumented in this encounter"
--- OUTSIDE RECORDS SUMMARY | ~2020-08-06 | XMS | Encounter Summary ---
Demographics + + + | Address | [address] | | | [place] [address] | + + + | Home Phone [...] Providers + +------+ + | Care Management Assistant Name | Role | Phone | + +------+ + | Kirk French MD | PCP | | + +------+ + Encounter Details +--------+ + + + + | Date | Type | Department | Care Team | Description | +--------+ + + + + | 12/14/ | Abstract | [facility] | Provider, | | | 2018 | | GASTROENTEROLOGY | MD Dago Jacques | | | | | [address] | [address] | | | | | [address] | [place] [address] | | | | | [address] | | | | | | [phone] | | | +--------+ + + + [...] Dx); | | | | | [place] [address] | Pacemaker; | | | | | [phone] | Sinoatrial node | | | | [...] Dx); | | | | | [place] [address] | Pacemaker; | | | | | [phone] | Sinoatrial node | | | | [...] Dx); | | | | | [place] [address] | Pacemaker; | | | | | [phone] | Sinoatrial node | | | | [...] | Pacemaker; | | | | | [phone] | Sinoatrial node | | | | | | dysfunction (HCC) | | | | | | with symptomatic | | | | | | bradycardia | +--------+ + + + + | 08/21/ | Implant | Cardiology | AnshumarianaDaljit parkinson, | Remote Device | | 2019 | Monitor | | MD [address] [place] | Interrogation | | | | | [place], | (Primary Dx); | | | | | [place] [address] | Pacemaker; | | | | | [phone] | Sinoatrial node | | | | [...] W | | | | | | [place], | | | | | | [place] [address] | | | | | | [phone] | | | | | | | | +--------+ + + + + documented as of this encounter Visit Diagnoses Not on filedocumented in this encounter"
--- OUTSIDE RECORDS SUMMARY | ~2020-08-06 | XMS | Encounter Summary ---
Demographics + + + | Address | [address] [place] [address] [address] | | | [place] [address] | + + + | Home Phone [...] [place] | | | | | [address] | | + + + + + Care Team Providers + +------+ + | Care Car Rental Agent Name | Role | Phone | + +------+ + | Darion Holden DO | PCP | | + +------+ + Reason for Visit + +--------+ + | Reason | Onset | Comments | | | Date | | + +--------+ + | Diarrhea | 10/04/ | ongoing diarrhea; sent to ED | | | 2018 | | + +--------+ + Encounter Details +--------+ + + + + | Date | Type | Department | Care Team | Description | +--------+ + + + + | 10/04/ | Telephone | Digestive Health | Bridgette Rios Shawn, | Diarrhea (ongoing | | 2019 | | Center at [facility] [address] | MD [address] | diarrhea; sent to | | | | [address] | [place], [place] | ED) | | | | for Health and | [address] | | | | | [facility], [facility] [address] | [phone] | | | | | [place], [place] | | | | | | [address] | | | | | | [phone] | | | +--------+ + + + [...] Telephone Encounter - Brittany Sow MA - 10/12/2019 9:56 AM PSTLVM for patient to call back. elephone Encount er - Brittany Sow MA - 10/10/2019 10:50 AM PSTPlaced call to [facility] and they state that they have no stool samples resulted in their system. She states that t here is no evidence of anything being sent out of the hospital to an outside lab. She states that it may have been ordered by the patient has probably never completed or returned the s amples. elephone Encangel nter - Allyson Diehl RN - 10/05/2019 12:02 PM PSTReceived 1L fluids, labs reassuring. W as unable to collect stool studies during ED visit, will check back for lab results soon. El ectronically signed by Allyson Diehl RN at 10/05/2019 12:03 PM PSTTelephone Encounter - Brittany Sow MA - 10/05/2019 11:48 AM PSTED report from [facility] d uploaded to patient's chart. 11:4 8 AM PSTTelephone Encounter - Brittany Sow MA - 10/05/2019 10:28 AM PSTRecords request s ent to [facility] in [place] at [phone] signed by Brittany heard MA at 10/05/2019 10:28 AM PSTTelephone Encounter - Radha Davis RN - 2018 11:46 AM PSTI spoke with Moe Sanchez for his concern of ongoing diarrhea. He reports he is consistently stooling at this point with abdominal cramping. Denies blood in stool. No fever or chills. Nausea present, no vomiting. Only able to tolerate small amount of liquid. He has been having severe dizziness and almost fell this morning. Denies chest pain but feels he has heart palpitations. History of PVC's, pacemaker and aneurysm. Considering his severe dizziness/ palpiations I advised him to be seen at urgent care or em ergency room. He was agreeable to be evaluated at the [facility] ED. Called report to MONROE Chavira and asked her if recommended stool studies could be completed. I faxed her the orders as well. Will ask primary team to follow up tomorrow with patient. elephone Encounter - Lali Nevarez - 10/04/2019 11:27 AM PSTPATIENT LEFT VOICE MESSAGE ON 10/04/19 AT 9:16a m REGARDING Pt mentioned in the last hour and for the past two days has been cramping and liq uid stool. Pt went 7 times within the last hour. Please return call documented in this encou nter Plan of Treatment Not on filedocumented as of this encounter Visit Diagnoses Not on filedocumented in this encounter"
--- OUTSIDE RECORDS SUMMARY | ~2020-08-06 | XMS | Encounter Summary ---
Demographics + + + | Address | [address] | | | [place] [address] | + + + | Home Phone [...] Team Providers + +------+ + | Care Gunite Nozzle Operator Name | Role | Phone | + +------+ + | Kirk French MD | PCP | | + +------+ + Encounter Details +--------+ + + + + | Date | Type | Department | Care Team | Description | +--------+ + + + + | 11/03/ | Imaging | [facility] | Provider, | | | 2017 | Exam | [facility] | MD [address] | | | | | IMAGING [address] | [address] | | | | | [address] [place] | [place] [address] | | | | | [place] [address] | | | | | | [phone] | | | +--------+ + + + [...] | Monitor | | MD [address] | Interrogation | | | | | [facility], | (Primary Dx); | | | | | [place] [address] | Pacemaker; | | | | | [phone] | Sinoatrial node | | | | | | dysfunction (HCC) | | | | | | with symptomatic | | | | | | bradycardia | +--------+ + + + + | 08/21/ | Implant | Cardiology | Daljit Singletary, | Remote Device | | 2019 | Monitor | | MD [address] | Interrogation | | | | | [facility], | (Primary Dx); | | | | | [place] [address] | Pacemaker; | | | | | [phone] | Sinoatrial node | | | | | | dysfunction (HCC) | | | | | | with symptomatic | | | | | | bradycardia | +--------+ + + + + | 08/21/ | Implant | Cardiology | Daljit Singletary, | Remote Device | | 2019 | Monitor | | MD [address] | Interrogation | | | | | [facility], | (Primary Dx); | | | | | [place] [address] | Pacemaker; | | | | | [phone] | Sinoatrial node | | | | | | dysfunction (HCC) | | | | | | with symptomatic | | | | | | bradycardia | +--------+ + + + + | 08/21/ | Implant | Cardiology | Daljit Singletary, | Remote Device | | 2019 | Monitor | | MD [address] | Interrogation | | | | | [facility], | (Primary Dx); | | | | | [place] [address] | Pacemaker; | | | | | [phone] | Sinoatrial node | | | | | | dysfunction (HCC) | | | | | | with symptomatic | | | | | | bradycardia | +--------+ + + + + | 08/21/ | Implant | Cardiology | Daljit Singletary, | Remote Device | | 2019 | Monitor | | MD [address] | Interrogation | | | | | [facility], | (Primary Dx); | | | | | [place] [address] | Pacemaker; | | | | | [phone] | Sinoatrial node | | | | [...] | | | | | | [place], | | | | | | [place] [address] | | | | | | [phone] | | | | | | | [...] for comparison only - no result from [facility]. | | + + + + +---------+ + + | Performing | Address | City/State/Zipcode | Phone Number | | Organization | | | | + +---------+ + + | [facility] | | | | + +---------+ + + documented in this encounter Visit Diagnoses Not on filedocumented in this encounter"
--- OUTSIDE RECORDS SUMMARY | ~2020-08-06 | XMS | Encounter Summary ---
Demographics + + + | Address | [address] | | | [place] [address] | + + + | Home Phone [...] Team Providers + +------+ + | Care Correction Officer Supervisor Name | Role | Phone | + +------+ + PCP | Unavailable | + +------+ + Encounter Details +--------+ + + + + | Date | Type | Department | Care Team | Description | +--------+ + + + + | 08/17/ | [facility] | [facility] | Evan Gandara MD | | | 2005 | Encounter | MED CTR LABORATORY | [address] [facility] | | | | | [address] | [place] | | | | | [place] | [address] | | | | | [address] | | | | | | [phone] | | | +--------+ + + + [...] Interrogation | | | | | [place], | (Primary Dx); | | | | | [place] [address] | Pacemaker; | | | | | [phone] | Sinoatrial node | | | | | | dysfunction (HCC) | | | | | | with symptomatic | | | | | | bradycardia | +--------+ + + + + | 08/21/ | Implant | Cardiology | Daljit Singletary, | Remote Device | | 2019 | Monitor | | MD [address] | Interrogation | | | | | [place], | (Primary Dx); | | | | | [place] [address] | Pacemaker; | | | | | [phone] | Sinoatrial node | | | | [...] Interrogation | | | | | [place], | (Primary Dx); | | | | | [place] [address] | Pacemaker; | | | | | [phone] | Sinoatrial node | | | | [...] Interrogation | | | | | [place], | (Primary Dx); | | | | | [place] [address] | Pacemaker; | | | | | [phone] | Sinoatrial node | | | | [...] Interrogation | | | | | [facility], | (Primary Dx); | | | | | [place] [address] | Pacemaker; | | | | | [phone] | Sinoatrial node | | | | [...] | | | | | | [place] [address] | | | | | | [phone] | | | | | | | | +--------+ + + + + documented as of this encounter Visit Diagnoses Not on filedocumented in this encounter"
--- OUTSIDE RECORDS SUMMARY | ~2020-08-06 | XMS | Encounter Summary ---
Demographics + + + | Address | [address] | | | [place] [address] | + + + | Home Phone [...] Providers + +------+ + | Care Cotton Presser Name | Role | Phone | [...] | Refill | [facility] [place] | [place], | Medication Refill | | 2014 | | CARDIOLOGY [address] | [address] [place] [address] | | | | | [place], | [place], | | | | | [place] [address] | [place] [address] | | | | | [phone] | [phone] | | | | | | | [...] | Monitor | | MD [address] [place] | Interrogation | | | | | [place], | (Primary Dx); | | | | | [place] [address] | Pacemaker; | | | | | [phone] | Sinoatrial node | | | | | | dysfunction ([facility]) | | | | | | with symptomatic | | | | | | bradycardia | +--------+ + + + + | 08/21/ | Implant | Cardiology | Daljit Singletary | Remote Device | | 2020 | Monitor | | MD [address] [place] | Interrogation | | | | | [place], | (Primary Dx); | | | | | [place] [address] | Pacemaker; | | | | | [phone] | Sinoatrial node | | | | | | dysfunction (HCC) | | | | | | with symptomatic | | | | | | bradycardia | +--------+ + + + + | 08/21/ | Implant | Cardiology | Daljit Singletary, | Remote Device | | 2019 | Monitor | | MD [address] [place] | Interrogation | | | | | [place], | (Primary Dx); | | | | | [place] [address] | Pacemaker; | | | | | [phone] | Sinoatrial node | | | | | | dysfunction (HCC) | | | | | | with symptomatic | | | | | | bradycardia | +--------+ + + + + | 08/21/ | Implant | Cardiology | Daljit Singletary, | Remote Device | | 2019 | Monitor | | MD [address] [place] | Interrogation | | | | | [place], | (Primary Dx); | | | | | [place] [address] | Pacemaker; | | | | | [phone] | Sinoatrial node | | | | | | dysfunction (HCC) | | | | | | with symptomatic | | | | | | bradycardia | +--------+ + + + + | 08/21/ | Implant | Cardiology | Daljit Singletary, | Remote Device | | 2019 | Monitor | | MD [address] [place] | Interrogation | | | | | [facility], | (Primary Dx); | | | | | [place] [address] | Pacemaker; | | | | | [phone] | Sinoatrial node | | | | [...] | | | | | | [place] [address] | | | | | | [phone] | | | | | | | | +--------+ + + + + documented as of this encounter Visit Diagnoses Not on filedocumented in this encounter"
--- OUTSIDE RECORDS SUMMARY | ~2020-08-06 | XMS | Encounter Summary ---
Demographics + + + | Address | [address] | | | [place] [address] | + + + | Home Phone [...] Team Providers + +------+ + | Care Makeup Artist Name | Role | Phone | + +------+ + | Kirk French MD | PCP | | + +------+ + Encounter Details +--------+ + + + + | Date | Type | Department | Care Team | Description | +--------+ + + + + | 09/19/ | Orders Only | [facility] [place] | Hellberg, Geri, | Pacemaker | | 2015 | | CARDIOLOGY [address] | FINGER[place] FORMER [address] | reprogramming/check | | | | [place], | [facility] [place] [facility] [place] | DO NOT DELETE | | | | [place] [address] | [address] | (Primary Dx); | | | | [phone] | | Pacemaker - | | | [...] Interrogation | | | | | [place], | (Primary Dx); | | | | | [place] [address] | Pacemaker; | | | | | [phone] | Sinoatrial node | | | | | | dysfunction (HCC) | | | | | | with symptomatic | | | | | | bradycardia | +--------+ + + + + | 08/21/ | Implant | Cardiology | Daljit Singletary, | Remote Device | | 2019 | Monitor | | MD [address] [place] | Interrogation | | | | | [place], | (Primary Dx); | | | | | [place] [address] | Pacemaker; | | | | | [phone] | Sinoatrial node | | | | | | dysfunction (HCC) | | | | | | with symptomatic | | | | | | bradycardia | +--------+ + + + + | 08/21/ | Implant | Cardiology | Daljit Singletary, | Remote Device | | 2019 | Monitor | | MD [address] [place] | Interrogation | | | | | [place], | (Primary Dx); | | | | | [place] [address] | Pacemaker; | | | | | [phone] | Sinoatrial node | | | | | | dysfunction (HCC) | | | | | | with symptomatic | | | | | | bradycardia | +--------+ + + + + | 08/21/ | Implant | Cardiology | Daljit Singletary, | Remote Device | | 2020 | Monitor | | MD [address] [place] | Interrogation | | | | | [place], | (Primary Dx); | | | | | [place] [address] | Pacemaker; | | | | | [phone] | Sinoatrial node | | | | | | dysfunction (HCC) | | | | | | with symptomatic | | | | | | bradycardia | +--------+ + + + + | 08/21/ | Implant | Cardiology | Daljit Singletary, | Remote Device | 2019 | Monitor | | MD [address] [place] | Interrogation | | | | | [place], | (Primary Dx); | | | | | [place] [address] | Pacemaker; | | | | | [phone] | Sinoatrial node | | | | [...] W | | | | | | [place], | | | | | | [place] [address] | | | | | | [phone] | | | | | | | [...] | | 2. 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
--- OUTSIDE RECORDS SUMMARY | ~2020-08-06 | XMS | Encounter Summary ---
Demographics + + + | Address | [address] | | | [place] [address] | + + + | Home Phone [...] Providers + +------+ + | Care Contract Clerk Name | Role | Phone | [...] [address] | | | | | [place], | [place], | | | | | [place] [address] | [place] [address] | | | | | [phone] | [phone] | | | | | | | [...] | | | | | [place], | (Primary Dx); | | | | | [place] [address] | Pacemaker; | | | | | [phone] | Sinoatrial node | | | | | | dysfunction (HCC) | | | | | | with symptomatic | | | | | | bradycardia | +--------+ + + + + | 08/21/ | Implant | Cardiology | Daljit Singletary, | Remote Device | | 2019 | Monitor | | [address] [place] | Interrogation | | | | | [place], | (Primary Dx); | | | | | [place] [address] | Pacemaker; | | | | | [phone] | Sinoatrial node | | | | | | dysfunction (HCC) | | | | | | with symptomatic | | | | | | bradycardia | +--------+ + + + + | 08/21/ | Implant | Cardiology | Daljit Singletary, | Remote Device | | 2019 | Monitor | | MD [address] [place] | Interrogation | | | | | [place], | (Primary Dx); | | | | | [place] [address] | Pacemaker; | | | | | [phone] | Sinoatrial node | | | | | | dysfunction (HCC) | | | | | | with symptomatic | | | | | | bradycardia | +--------+ + + + + | 08/21/ | Implant | Cardiology | Daljit Singletary, | Remote Device | | 2019 | Monitor | | MD [address] [place] | Interrogation | | | | | [place], | (Primary Dx); | | | | | [place] [address] | Pacemaker; | | | | | [phone] | Sinoatrial node | | | | | | dysfunction (HCC) | | | | | | with symptomatic | | | | | | bradycardia | +--------+ + + + + | 08/21/ | Implant | Cardiology | Daljit Singletary, | Remote Device | | 2020 | Monitor | | MD [address] [place] | Interrogation | | | | | [place], | (Primary Dx); | | | | | [place] [address] | Pacemaker; | | | | | [phone] | Sinoatrial node | | | | [...] | | | | | | [place] [address] | | | | | | [phone] | | | | | | | [...] + | [facility] [facility] | [address] | [place], [place] | | | [facility] | | [address] | | | [...] | + +---------+ + + External Lab: [facility] INR (01/25/2014 11:43 AM PST) + +-------+ [...] | | | LAB | | | [place], | | | | | | External [...] + | [facility] | [address] | [place], [place] | | | [facility] | | [address], [facility] | | | - LABORATORY | [...]
--- OUTSIDE RECORDS SUMMARY | ~2020-08-06 | XMS | Encounter Summary ---
Demographics + + + | Address | [address] | | | [place] [address] | + + + | Home Phone [...] Team Providers + +------+ + | Care Osteopathy Doctor Name | Role | Phone | [...] [place] | | | | | | [address] | | | | | | [phone] | | | | | | | [...] | Monitor | | MD [address] | Interrogation | | | | | [place], | (Primary Dx); | | | | | [place] [address] | Pacemaker; | | | | | [phone] | Sinoatrial node | | | | | | dysfunction (HCC) | | | | | | with symptomatic | | | | | | bradycardia | +--------+ + + + + | 08/21/ | Implant | Cardiology | Daljit Singletary, | Remote Device | | 2019 | Monitor | | MD [address] | Interrogation | | | | | [place], | (Primary Dx); | | | | | [place] [address] | Pacemaker; | | | | | [phone] | Sinoatrial node | | | | | | dysfunction (HCC) | | | | | | with symptomatic | | | | | | bradycardia | +--------+ + + + + | 08/21/ | Implant | Cardiology | Daljit Singletary, | Remote Device | | 2019 | Monitor | | MD [address] | Interrogation | | | | | [place], | (Primary Dx); | | | | | [place] [address] | Pacemaker; | | | | | [phone] | Sinoatrial node | | | | | | dysfunction (HCC) | | | | | | with symptomatic | | | | | | bradycardia | +--------+ + + + + | 08/21/ | Implant | Cardiology | Daljit Singletary, | Remote Device | | 2019 | Monitor | | MD [address] | Interrogation | | | | | [place], | (Primary Dx); | | | | | [place] [address] | Pacemaker; | | | | | [phone] | Sinoatrial node | | | | | | dysfunction (HCC) | | | | | | with symptomatic | | | | | | bradycardia | +--------+ + + + + | 08/21/ | Implant | Cardiology | Daljit Singletary, | Remote Device | | 2020 | Monitor | | MD [address] | Interrogation | | | | | [place], | (Primary Dx); | | | | | [place] [address] | Pacemaker; | | | | | [phone] | Sinoatrial node | | | | [...] | | | | | | [place] [id number] | | | | | | [phone] | | | | | | | | +--------+ + + + + documented as of this encounter Visit Diagnoses Not on filedocumented in this encounter"
--- OUTSIDE RECORDS SUMMARY | ~2020-08-06 | XMS | Encounter Summary ---
Demographics + + + | Address | [address] | | | [place] [address] | + + + | Home Phone [...] Team Providers + +------+ + | Care Muffler Hand Name | Role | Phone | [...] unspecified | [address] | | | | | type | [address] | [place], | | | | | Procedures | [place], | [place] | | | | | [place] | [place] [address] | [address] | | | | | Stress Test | Phone: | Phone: | | | | | (Vasodilator | [phone] | [phone] | | | | | ) CHG | Fax: | Fax: | | | | | MYOCARDIAL | [phone] | [phone] | | | | | SPECT | [...] | type | [address] | [address] | | | | | Procedures | [place] | [place], | | | | | FUP | [place], [place] | [place] [address] | | | | | | [address] | Phone: | | | | | | Phone: | [phone] | | | | | | [phone] | Fax: | | | | | | Fax: | [phone] | | | | | | [phone] | | +--------+ + + + + + Encounter Details +--------+---------+ + + + | Date | Type | Department | Care Team | Description | +--------+---------+ + + + | 06/27/ | Office | [facility] | Sydni Singletary, | Pacemaker | | 2018 | Visit | CARDIOLOGY [address] | [address] [facility] | reprogramming/check | | | | [address] [place], | 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 He is being seen today for emergency department f [facility] up. He was last seen 01/05/2018 at which time patient was to continue with present plan and medi cations. Since that time, patient has been seen at [place] emergency department on 018 for chest pain [...] Preventative health care Coronary artery disease involving [place] coronary artery of [place] heart without angina pectoris Cannabis abuse, daily [...] 3RD DOSE, CALL 911 100 tablet 3 [place]-3 Fatty Acids (SALMON OIL-1000 PO) CAPS, one capsule by mouth daily twice daily ONE TOUCH DELICA LANCETS [facility] Check glucose as [...] today primarily from [facility]: LIPID Lab Results Component Value [...] ventricular arrhythmia performed by Dr. Gambino at [facility] on 01/30/2013. Patient had spontaneous PVCs [...] to go back in 3 days to [place] for an attempt of ablation under [...] PVCs. 2. Non-critical Coronary artery disease involving [place] coronary artery of [place] heart [facility] angina pectoris: A. Normal exercise [...] He is in a class I of [place] [employer] functiona l class. There is [...] 6. Follow-up in 6 to 8 weeks. IAllyson, am acting as a scribe on behalf of, and in the presence of Sydni parkinson MD. I have reviewed and edited this note. Allyson Curtsi Charge Coordinator 06/27/2018 ISydni MD, personally performed the services described in this documentation, as scribed in my presence and it is both accurate and complete. Allyson Curtis, Med Ass t 06/27/2018 14:15 Electronically signed by: Sydni Singletary MD [facility] 06/27/2018 Portions of this chart may have been created with [employer] voice recognition software. Occasi onal wrong-word or sound-alike substitutions may have occurred due to the inherent granger itations of voice recognition software. Please read the chart carefully and recognize, using context, where these substitutions have occurred documented in this encounter Procedure Notes Sydni Singletary MD - 06/27/2018 1:30 PM PDTAssociated Order(s): DEVICE INTERROGATIONPro cedure(s): DEVICE INTERROGATIONPre-Procedure Diagnose(s): Pacemaker reprogramming/check; Pre sence of permanent cardiac pacemaker; Sinoatrial node dysfunction (HCC)Formatting of this no te might be different from the original. PATIENT NAME: Moe Sanchez : 1960: AGE: 58 y.o. Pacemaker Evaluation Report June 27, 2018 Reason for evaluation: routine Indication for pacemaker: ICD-10-CM ICD-9-CM 1. Pacemaker reprogramming/check DO NOT DELETE Z45.018 V53.31 Device Interrogation 2. Chest pain, unspecified type R07.9 786.50 ECG 12 lead [place] Nuclear Stress Test (Vasodilator) 3. Palpitations R00.2 785.1 Event monitor - 4 week 4. Sinoatrial node dysfunction (HCC) with symptomatic bradycardia I49.5 427.81 Device Inter rogation 5. Pacemaker - Medtronic - ADDR01 Adapta - Implanted 06/14/2009 Z95.0 V45.01 Device Interrog ation Patient was seated and/or reclined and device [...] details. Data collected by Shabana Lama RN Underlying rhythm: Sinus bradycardia 44 beats. 4 mode switch episodes accounting for < 0.1% of the time. 0 atrial high rate episodes. 0 ventricular high rate episodes. PVC singles 2,918 PVC singles 583 /month PVC runs 25 PVC runs 5/month Histogram good. Battery longevity 29 months. Normal and stable device function. Quarterly remote monitoring, enrolled today. Device interrogation due in office in 12 months. documented in this encounter Miscellaneous Notes Addendum Note - Mariana Valentine RN - 06/27/2018 1:30 PM PDT Addended by: GIBRAN VALENTINE on: 06/27/2018 15:51 Modules accepted: Orders ddendum Note - Kailey Hinton RN - 06/27/2018 1:30 PM PDT Addended by: KAILEY HINTON on: 06/27/2018 15:29 Modules accepted: Orders documented in this en counter Plan of Treatment +--------+ + + + + | Date | Type | Specialty | Care Team | Description | +--------+ + + + + | 08/21/ | Implant | Cardiology | Sydni Singletary, | Remote Device | | 2019 | Monitor | | [address] | Interrogation | | | | | [place], | (Primary Dx); | | | | | [place] [address] | Pacemaker; | | | | | [phone] | Sinoatrial node | | | | | | dysfunction (HCC) | | | | | | with symptomatic | | | | | | bradycardia | +--------+ + + + + | 08/21/ | Implant | Cardiology | Sydni Singletary, | Remote Device | | 2019 | Monitor | | MD [address] | Interrogation | | | | | [place], | (Primary Dx); | | | | | [place] [address] | Pacemaker; | | | | | [phone] | Sinoatrial node | | | | | | dysfunction (HCC) | | | | | | with symptomatic | | | | | | bradycardia | +--------+ + + + + | 08/21/ | Implant | Cardiology | Sydni Singletary, | Remote Device | | 2019 | Monitor | | MD [address] | Interrogation | | | | | [place], | (Primary Dx); | | | | | [place] [address] | Pacemaker; | | | | | [phone] | Sinoatrial node | | | | | | dysfunction (HCC) | | | | | | with symptomatic | | | | | | bradycardia | +--------+ + + + + | 08/21/ | Implant | Cardiology | Sydni Singletary, | Remote Device | | 2019 | Monitor | | MD [address] | Interrogation | | | | | [place], | (Primary Dx); | | | | | [place] [address] | Pacemaker; | | | | | [phone] | Sinoatrial node | | | | | | dysfunction (HCC) | | | | | | with symptomatic | | | | | | bradycardia | +--------+ + + + + | 08/21/ | Implant | Cardiology | Sydni Singletary, | Remote Device | | 2019 | Monitor | | [address] | Interrogation | | | | | [place], | (Primary Dx); | | | | | [place] [address] | Pacemaker; | | | | | [phone] | Sinoatrial node | | | | [...] W | | | | | | [place], | | | | | | [place] [address] | | | | | | [phone] | | | | | | | [...] MD | | | | | | ([id number]) on 06/27/2018 | | | | | [...]
--- OUTSIDE RECORDS SUMMARY | ~2020-08-06 | XMS | Encounter Summary ---
Demographics + + + | Address | [address] | | | [place] [address] | + + + | Home Phone [...] Team Providers + +------+ + | Care Spool Hauler Name | Role | Phone | + +------+ + | Kirk French MD | PCP | | + +------+ + Reason for Visit + +--------+ + | Reason | Onset | Comments | | | Date | | + +--------+ + | Appointment | 07/10/ | Pacemaker nearing [place]DA | | | 2019 | | + +--------+ + Encounter Details +--------+ + + + + | Date | Type | Department | Care Team | Description | +--------+ + + + + | 07/10/ | Telephone | [facility] | Daljit Singletary, | Appointment | | 2020 | | CARDIOLOGY [address] | MD [address] | (Pacemaker nearing | | | | [place], | [place], | [place]) | | | | [place] [address] | [place] [address] | | | | | [phone] | [phone] | | | | | | | [...] this encounter Miscellaneous Notes Telephone Encounter - Pauly Little - 07/10/2020 1:33 PM PDT08/19/20Electronically s igned by Pauly Little at 07/10/2020 1:33 PM PDTTelephone Encounter - Kailey Pruitt R N - 07/10/2020 9:49 AM PDTPatients pacemaker remote report showed 1 month remaining on bat taylor 06/20 and 07/08 shows <1 month remaining. Patient's OC/THR appointment needs to be moved up sooner (in next month) Left message for patient to call back. Electronically signed by: Shaye Pruitt RN 07/10/2020 9:50 AM PDT documented in this encounter Plan of Treatment +--------+ + + + + | Date | Type | Specialty | Care Team | Description | +--------+ + + + + | 08/21/ | Implant | Cardiology | Daljit Singletary, | Remote Device | | 2019 | Monitor | | MD [address] | Interrogation | | | | | [place], | (Primary Dx); | | | | | [place] [address] | Pacemaker; | | | | | [phone] | Sinoatrial node | | | | | | dysfunction (HCC) | | | | | | with symptomatic | | | | | | bradycardia | +--------+ + + + + | 08/21/ | Implant | Cardiology | Daljit Singletary, | Remote Device | | 2019 | Monitor | | MD [address] | Interrogation | | | | | [place], | (Primary Dx); | | | | | [place] [address] | Pacemaker; | | | | | [phone] | Sinoatrial node | | | | | | dysfunction (HCC) | | | | | | with symptomatic | | | | | | bradycardia | +--------+ + + + + | 08/21/ | Implant | Cardiology | Daljit Singletary, | Remote Device | | 2019 | Monitor | | MD [address] | Interrogation | | | | | [place], | (Primary Dx); | | | | | [place] [address] | Pacemaker; | | | | | [phone] | Sinoatrial node | | | | | | dysfunction (HCC) | | | | | | with symptomatic | | | | | | bradycardia | +--------+ + + + + | 08/21/ | Implant | Cardiology | Daljit Singletary, | Remote Device | | 2019 | Monitor | | MD [address] | Interrogation | | | | | [place], | (Primary Dx); | | | | | [place] [address] | Pacemaker; | | | | | [phone] | Sinoatrial node | | | | | | dysfunction (HCC) | | | | | | with symptomatic | | | | | | bradycardia | +--------+ + + + + | 08/21/ | Implant | Cardiology | Daljit Singletary, | Remote Device | | 2019 | Monitor | | MD [address] [place] | Interrogation | | | | | [place], | (Primary Dx); | | | | | [place] [address] | Pacemaker; | | | | | [phone] | Sinoatrial node | | | | [...] | | | | | | [place] [address] | | | | | | [phone] | | | | | | | | +--------+ + + + + documented as of this encounter Visit Diagnoses Not on filedocumented in this encounter"
--- OUTSIDE RECORDS SUMMARY | ~2020-08-06 | XMS | Encounter Summary ---
Demographics + + + | Address | [address] | | | [place] [address] | + + + | Home Phone [...] Providers + +------+ + | Care Shearing Machine Operator Name | Role | Phone [...] + + | 03/22/ | Refill | [facility] | Kirk French | Medication Refill | | 2020 | | [facility] | MD [address] | | | | | [address] | | | | | [address] | [place] [address] | | | | | [place], [place] | [phone] | | | | | [address] | | | | | | [phone] | | | +--------+--------+ + + + [...] | 2020 | Monitor | | [address] | Interrogation | | | | | [place], | (Primary Dx); | | | | | [place] [address] | Pacemaker; | | | | | [phone] | Sinoatrial node | | | | | | dysfunction (HCC) | | | | | | with symptomatic | | | | | | bradycardia | +--------+ + + + + | 08/21/ | Implant | Cardiology | Daljit Singletary, | Remote Device | | 2019 | Monitor | | MD [address] | Interrogation | | | | | [place], | (Primary Dx); | | | | | [place] [address] | Pacemaker; | | | | | [phone] | Sinoatrial node | | | | | | dysfunction ([facility]) | | | | | | with symptomatic | | | | | | bradycardia | +--------+ + + + + | 08/21/ | Implant | Cardiology | Daljit Singletary, | Remote Device | | 2019 | Monitor | | MD [address] | Interrogation | | | | | [place], | (Primary Dx); | | | | | [place] [address] | Pacemaker; | | | | | [phone] | Sinoatrial node | | | | | | dysfunction (HCC) | | | | | | with symptomatic | | | | | | bradycardia | +--------+ + + + + | 08/21/ | Implant | Cardiology | Shaista Singletarypawanotto, | Remote Device | | 2020 | Monitor | | MD [address] | Interrogation | | | | | [place], | (Primary Dx); | | | | | [place] [address] | Pacemaker; | | | | | [phone] | Sinoatrial node | | | | | | dysfunction (HCC) | | | | | | with symptomatic | | | | | | bradycardia | +--------+ + + + + | 08/21/ | Implant | Cardiology | Daljit Singletary, | Remote Device | | 2019 | Monitor | | MD [address] | Interrogation | | | | | [place], | (Primary Dx); | | | | | [place] [address] | Pacemaker; | | | | | [phone] | Sinoatrial node | | | | [...] | | | | | | [place] [address] | | | | | | [phone] | | | | | | | | +--------+ + + + + documented as of this encounter Visit Diagnoses Not on filedocumented in this encounter"
--- OUTSIDE RECORDS SUMMARY | ~2020-08-06 | XMS | Encounter Summary ---
Demographics + + + | Address | [address] | | | [place] [address] | + + + | Home Phone [...] Providers + +------+ + | Care Software Analyst Name | Role | Phone | [...] + | 06/23/ | Office | [facility] | [place], | Ascending thoracic | | 2016 | Visit | CARDIOLOGY [address] | [place] [address] | aortic aneurysm | | | | [place], | [place], | ([facility]) (Primary Dx); | | | | [place] [address] | [place] [address] | Coronary artery | | | | [phone] | [phone] | disease involving | | | | | | [place] coronary | | | | | | artery of [place] | | | | | | heart [...] + + documented as of this encounter Kailey Hernandez RN - 06/23/2016 3:49 PM PDT PATIENT [...] downloading device data was supervised by Daljit Cagle MD Underlying rhythm: Sinus bradycardia 37 beats. No episodes. Histogram fair. Battery longevity 4.5 years. Normal and stable device function. Prefers office checks. Device interrogation due in office in 6 months. Janeen Mccollum ARNP - 06/23/2016 12:45 PM PDT PATIENT NAME: Moe Sanchez : 1960: AGE: 56 y.o. PRIMARY CARE: Kirk French MD OUTPATIENT FOLLOW UP VISIT Date of Service: 06/23/2016 HISTORY OF PRESENT ILLNESS: Moe Sanchez is a 56 y.o. male with a history of non-critical coronary artery d isease involving [place] coronary artery of [place] heart without angina pectoris, essential h ypertension, [...] cardiac complaints. He is getting ready to [employer] [place] [...] Preventative health care Coronary artery disease involving [place] coronary artery of [place] heart without angina pectoris Cannabis abuse, daily [...] 3rd dose, call 911 100 tablet 3 [place]-3 Fatty Acids (SALMON OIL-1000 PO) CAPS, one capsule by mouth daily twice daily ONE TOUCH DELICA LANCETS [facility] [...] and phoebe led by another provider- Dr. Cagle) from 06/23/2016 shows atrial-paced rhythm and heart rate 76 bpm. LAB RESULTS reviewed during visit today primarily from [facility]: LIPID Lab Results Component Value Date [...] downloading device data was supervised by Daljit Cagle MD Underlying rhythm: Sinus bradycardia 37 beats. No episodes. Histogram fair. Battery longevity 4.5 years. Normal and stable device function. Prefers office checks. Device interrogation due in office in 6 months. Above data and testing is reviewed this visit; testing below is historical data unless othe rwise specified. ASSESSMENT: 1. Non-critical Coronary artery disease involving [place] coronary artery of [place] heart wi thout angina pectoris: A. Normal [...] pain. He is in class I-II of [place] Heart Associatio n functional class. There are [...] to go back in 3 days to [place] for an attempt of ablation under general [...] this chart may have been created with [employer] voice recognition software. Occasi onal wrong-word or [...] 08/21/ | Implant | Cardiology | Daljit Cagle, | Remote Device | | 2019 | Monitor | | MD [address] [place] | Interrogation | | | | | [place], | (Primary Dx); | | | | | [place] [address] | Pacemaker; | | | | | [phone] | Sinoatrial node | | | | | | dysfunction (HCC) | | | | | | with symptomatic | | | | | | bradycardia | +--------+ + + + + | 08/21/ | Implant | Cardiology | Daljit Cagle, | Remote Device | | 2020 | Monitor | | MD [address] [place] | Interrogation | | | | | [place], | (Primary Dx); | | | | | [place] [address] | Pacemaker; | | | | | [phone] | Sinoatrial node | | | | | | dysfunction (HCC) | | | | | | with symptomatic | | | | | | bradycardia | +--------+ + + + + | 08/21/ | Implant | Cardiology | Daljit Cagle, | Remote Device | | 2019 | Monitor | | MD [address] [place] | Interrogation | | | | | [place], | (Primary Dx); | | | | | [place] [address] | Pacemaker; | | | | | [phone] | Sinoatrial node | | | | | | dysfunction (HCC) | | | | | | with symptomatic | | | | | | bradycardia | +--------+ + + + + | 08/21/ | Implant | Cardiology | Daljit Cagle, | Remote Device | | 2019 | Monitor | | MD [address] [place] | Interrogation | | | | | [place], | (Primary Dx); | | | | | [place] [address] | Pacemaker; | | | | | [phone] | Sinoatrial node | | | | | | dysfunction (HCC) | | | | | | with symptomatic | | | | | | bradycardia | +--------+ + + + + | 08/21/ | Implant | Cardiology | Daljit Cagle, | Remote Device | | 2019 | Monitor | | MD [address] [place] | Interrogation | | | | | [place], | (Primary Dx); | | | | | [place] [address] | Pacemaker; | | | | | [phone] | Sinoatrial node | | | | [...] W | | | | | | [place], | | | | | | [place] [address] | | | | | | [phone] | | | | | | | [...] the | | | | PDT | [place] coronary | results section. | | | | | artery of [place] | | | | | | heart [...] | | | | | | DALJIT CAGLE MD | | | | | | ([id number]) on 06/23/2016 | | | | | [...] disease involving [place] coronary artery of [place] heart without | | angina pectoris | [...] | | pacemaker | + + | Remote Device [...]
--- OUTSIDE RECORDS SUMMARY | ~2020-08-06 | XMS | Encounter Summary ---
Demographics + + + | Address | [address] | | | [place] [address] | + + + | Home Phone [...] Providers + +------+ + | Care Hot Mill Observer Name | Role | Phone | + +------+ + PCP | Unavailable | + +------+ + Encounter Details +--------+ + + + + | Date | Type | Department | Care Team | Description | +--------+ + + + + | 06/14/ | Hospital | [facility] | Daljit Singletary, | | | 2008 - | Encounter | MED CTR MP INTRA OP | [address] | | | | | [address] | [address] [place], | | | 06/15/ | | [place] | [place] [address] | | | 2008 | | [address] | [phone] | | | | | [phone] | | | +--------+ + + + [...] | Monitor | | MD [address] | Interrogation | | | | | [place], | (Primary Dx); | | | | | [place] [address] | Pacemaker; | | | | | [phone] | Sinoatrial node | | | | | | dysfunction (HCC) | | | | | | with symptomatic | | | | | | bradycardia | +--------+ + + + + | 08/21/ | Implant | Cardiology | Daljit Singletary, | Remote Device | | 2019 | Monitor | | MD [address] | Interrogation | | | | | [place], | (Primary Dx); | | | | | [place] [address] | Pacemaker; | | | | | [phone] | Sinoatrial node | | | | | | dysfunction (HCC) | | | | | | with symptomatic | | | | | | bradycardia | +--------+ + + + + | 08/21/ | Implant | Cardiology | Daljit Singletary, | Remote Device | | 2020 | Monitor | | MD [address] | Interrogation | | | | | [place], | (Primary Dx); | | | | | [place] [address] | Pacemaker; | | | | | [phone] | Sinoatrial node | | | | | | dysfunction (HCC) | | | | | | with symptomatic | | | | | | bradycardia | +--------+ + + + + | 08/21/ | Implant | Cardiology | Daljit Singletary, | Remote Device | | 2019 | Monitor | | MD [address] | Interrogation | | | | | [place], | (Primary Dx); | | | | | [place] [address] | Pacemaker; | | | | | [phone] | Sinoatrial node | | | | | | dysfunction (HCC) | | | | | | with symptomatic | | | | | | bradycardia | +--------+ + + + + | 08/21/ | Implant | Cardiology | Daljit Singletary, | Remote Device | | 2019 | Monitor | | MD [address] | Interrogation | | | | | [place], | (Primary Dx); | | | | | [place] [address] | Pacemaker; | | | | | [phone] | Sinoatrial node | | | | [...] | | | | | | [place] [address] | | | | | | [phone] | | | | | | | | +--------+ + + + + documented as of this encounter Visit Diagnoses Not on filedocumented in this encounter"
--- OUTSIDE RECORDS SUMMARY | ~2020-08-06 | XMS | Encounter Summary ---
Demographics + + + | Address | [address] | | | [place] [address] | + + + | Home Phone [...] Providers + +------+ + | Care Automobile Or Truck Rental Dispatcher Name | Role | Phone | + +------+ + | Kirk French MD | PCP | | + +------+ + Encounter Details +--------+ + + + + | Date | Type | Department | Care Team | Description | +--------+ + + + + | 12/28/ | Abstract | [facility] | Vidhi Gillespie, | | | 2020 | | CARDIOLOGY [address] | Travel Journalist | | | | | [place], | | | | | | [place] [address] | | | | | | [phone] | | | +--------+ + + + [...] Interrogation | | | | | [place], | (Primary Dx); | | | | | [place] [id number] | Pacemaker; | | | | | [phone] | Sinoatrial node | | | | | | dysfunction ([facility]) | | | | | | with symptomatic | | | | | | bradycardia | +--------+ + + + + | 08/21/ | Implant | Cardiology | Daljit Singletary, | Remote Device | | 2019 | Monitor | | MD [address] | Interrogation | | | | | [place], | (Primary Dx); | | | | | [place] [address] | Pacemaker; | | | | | [phone] | Sinoatrial node | | | | | | dysfunction (HCC) | | | | | | with symptomatic | | | | | | bradycardia | +--------+ + + + + | 08/21/ | Implant | Cardiology | Daljit Singletary, | Remote Device | | 2019 | Monitor | | MD [address] | Interrogation | | | | | [place], | (Primary Dx); | | | | | [place] [address] | Pacemaker; | | | | | [phone] | Sinoatrial node | | | | | | dysfunction (HCC) | | | | | | with symptomatic | | | | | | bradycardia | +--------+ + + + + | 08/21/ | Implant | Cardiology | Daljit Singletary, | Remote Device | | 2019 | Monitor | | MD [address] | Interrogation | | | | | [place], | (Primary Dx); | | | | | [place] [address] | Pacemaker; | | | | | [phone] | Sinoatrial node | | | | | | dysfunction (HCC) | | | | | | with symptomatic | | | | | | bradycardia | +--------+ + + + + | 08/21/ | Implant | Cardiology | Daljit Singletary, | Remote Device | | 2019 | Monitor | | [address] | Interrogation | | | | | [place], | (Primary Dx); | | | | | [place] [address] | Pacemaker; | | | | | [phone] | Sinoatrial node | | | | [...] W | | | | | | [place], | | | | | | [place] [address] | | | | | | [phone] | | | | | | | [...] | | | | | | | [place], | | | | | | External [...]
--- OUTSIDE RECORDS SUMMARY | ~2020-08-06 | XMS | Encounter Summary ---
Demographics + + + | Address | [address] | | | [place] [address] | + + + | Home Phone [...] Providers + +------+ + | Care Lead Worker Of Housekeeping And Laundry Name | Role | Phone | + +------+ + | Kirk French MD | PCP | | + +------+ + Encounter Details +--------+ + + + + | Date | Type | Department | Care Team | Description | +--------+ + + + + | 01/19/ | Procedure | [facility] | Wongsuwan, Suwong, | Pacemaker | | 2018 | visit | CARDIOLOGY [address] | reprogramming/check | | | | [place], | [place], | DO NOT DELETE | | | | [place] [address] | [place] [address] | (Primary Dx); | | | | [phone] | [phone] | Pacemaker - | | | | [...] | Monitor | | MD [address] | Interrogation | | | | | [place], | (Primary Dx); | | | | | [place] [address] | Pacemaker; | | | | | [phone] | Sinoatrial node | | | | | | dysfunction (HCC) | | | | | | with symptomatic | | | | | | bradycardia | +--------+ + + + + | 08/21/ | Implant | Cardiology | Daljit Singletary, | Remote Device | | 2019 | Monitor | | MD [address] | Interrogation | | | | | [place], | (Primary Dx); | | | | | [place] [address] | Pacemaker; | | | | | [phone] | Sinoatrial node | | | | | | dysfunction (HCC) | | | | | | with symptomatic | | | | | | bradycardia | +--------+ + + + + | 08/21/ | Implant | Cardiology | Daljit Singletary, | Remote Device | | 2020 | Monitor | | MD [address] | Interrogation | | | | | [place], | (Primary Dx); | | | | | [place] [address] | Pacemaker; | | | | | [phone] | Sinoatrial node | | | | | | dysfunction (HCC) | | | | | | with symptomatic | | | | | | bradycardia | +--------+ + + + + | 08/21/ | Implant | Cardiology | Daljit Singletary, | Remote Device | | 2019 | Monitor | | MD [address] | Interrogation | | | | | [place], | (Primary Dx); | | | | | [place] [address] | Pacemaker; | | | | | [phone] | Sinoatrial node | | | | | | dysfunction (HCC) | | | | | | with symptomatic | | | | | | bradycardia | +--------+ + + + + | 08/21/ | Implant | Cardiology | Daljit Singletary, | Remote Device | | 2019 | Monitor | | MD [address] | Interrogation | | | | | [place], | (Primary Dx); | | | | | [place] [address] | Pacemaker; | | | | | [phone] | Sinoatrial node | | | | [...] W | | | | | | [place], | | | | | | [place] [address] | | | | | | [phone] | | | | | | | [...]
--- OUTSIDE RECORDS SUMMARY | ~2020-08-06 | XMS | Encounter Summary ---
Demographics + + + | Address | [address] | | | [place] [address] | + + + | Home Phone [...] Providers + +------+ + | Care Bleacher Lard Name | Role | Phone | + +------+ + | Michael Amanda DO | PCP | | + +------+ + Encounter Details +--------+ + + + + | Date | Type | Department | Care Team | Description | +--------+ + + + + | 01/31/ | Hospital | [facility] | Adrian Gutierrez MD | | | 2012 | Encounter | [facility] | [address] | | | | | EMERGENCY CENTER | [place], [place] | | | | | [address] | [address] | | | | | [place] | [phone] | | | | | [address] | | | | | | [phone] | | | +--------+ + + + [...] + + + +---------+ + + | [place]-3 Fatty | CAPS, one capsule by | [...] 01/31/2013 Age/Sex: 52Y / M : [id number] / [id number] CHIEF COMPLAINT: Dizziness with chest discomfort. HISTORY OF PRESENT ILLNESS: This is a 52-year-old male here from [place], [place]. Appare ntly, he has a history of bradycardia and a pacemaker, also PVCs or PACs, and is on a stabl e dose of metoprolol, but was referred to Dr. Gambino here in [place] for ablation procedur e. This was undertaken [...] back home tomorrow. He has a primary abstract clerk that he sees in [place]. The patient's pacemaker has been there for [...] and listed as disabled. He lives in [place]. He says his d octor is Dr. Singletary. He is a nonsmoker. PHYSICAL EXAMINATION: GENERAL: A robust-appearing 52-year-old male, slightly anxious, but in no obvious distress . VITAL SIGNS: Initial blood pressure 135/93, heart rate 71 and seems MOE GAY ADM:01/31/13 [id number] [facility] EMERGENCY DEPARTMENT RECORD [id number] [facility] Adrian rosenthal MD E-Sign: [facility] THIS REPORT IS CONFIDENTIAL AND NOT TO BE RELEASED WITHOUT PROPER AUTHORIZATION. [facility] regular, respirations 16, oxygen saturation 97% on [...] 154, slightly high, BUN and VICTOR HUGOMOE W ADM:01/31/13 [id number] [facility] ER EMERGENCY DEPARTMENT RECORD [id number] [facility] Adrian rosenthal MD E-Sign: [facility] THIS REPORT IS CONFIDENTIAL AND NOT TO BE RELEASED WITHOUT PROPER AUTHORIZATION. [facility] creatinine are 14 and 0.9. No increased [...] can follow up with his doctor in [facility] lee. Certainly, if he has chest pain while here in [place], he to return immediately for re peat evaluation. DIAGNOSES: 1. Arrhythmia with near syncope in context of recent attempted ablation, symptomatic PVC s. 2. Noncardiac chest pain 3. Mild hypokalemia, again, it has been replaced, and we will recommend increased potass ium intake in his diet for the short-term. 4. He was discharged. Adrian Gutierrez MD P [facility]/dkm #[id number] cc: MD Adrian Pleitez MD Suwong [place], MD Electronically Signed 02/16/13 1055 Adrian Gutierrez MD MONA GAY ADM:01/31/13 [id number] [facility] ER EMERGENCY DEPARTMENT RECORD [id number] [facility] Adrian rosenthal MD E-Sign: [facility] THIS REPORT IS CONFIDENTIAL AND NOT [...] | Monitor | | MD [address] | Interrogation | | | | | [place], | (Primary Dx); | | | | | [place] [address] | Pacemaker; | | | | | [phone] | Sinoatrial node | | | | | | dysfunction (HCC) | | | | | | with symptomatic | | | | | | bradycardia | +--------+ + + + + | 08/21/ | Implant | Cardiology | Daljit Singletary, | Remote Device | | 2019 | Monitor | | MD [address] | Interrogation | | | | | [place], | (Primary Dx); | | | | | [place] [address] | Pacemaker; | | | | | [phone] | Sinoatrial node | | | | | | dysfunction (HCC) | | | | | | with symptomatic | | | | | | bradycardia | +--------+ + + + + | 08/21/ | Implant | Cardiology | Daljit Singletary, | Remote Device | | 2019 | Monitor | | MD [address] | Interrogation | | | | | [place], | (Primary Dx); | | | | | [place] [address] | Pacemaker; | | | | | [phone] | Sinoatrial node | | | | | | dysfunction (HCC) | | | | | | with symptomatic | | | | | | bradycardia | +--------+ + + + + | 08/21/ | Implant | Cardiology | Daljit Singletary, | Remote Device | | 2019 | Monitor | | MD [address] | Interrogation | | | | | [place], | (Primary Dx); | | | | | [place] [address] | Pacemaker; | | | | | [phone] | Sinoatrial node | | | | | | dysfunction (HCC) | | | | | | with symptomatic | | | | | | bradycardia | +--------+ + + + + | 08/21/ | Implant | Cardiology | Daljit Singletary, | Remote Device | | 2019 | Monitor | | MD [address] | Interrogation | | | | | [place], | (Primary Dx); | | | | | [place] [address] | Pacemaker; | | | | | [phone] | Sinoatrial node | | | | [...] | | | | | | [place] [address] | | | | | | [phone] | | | | | | | [...] + + + | Exam Performed Location: [facility] [place] [facility] | MISCELANIOUS | | CHEST CLINICAL [...] | an acute cardiopulmonary process. S: SQ ([id number]) Signed by: | | | JAYNE SPEAR MD | | + + + + + | Procedure Note | + + | Kevin, Kalpesh Conversion - 09/13/2013 10:25 PM PDT Exam Performed Location: [facility] | [facility] CHEST[facility]INICAL INFORMATION:Shortness of | | breath.COMPARISON:None.FINDINGS:There is a left subclavian dual lead cardiac pacer. The | | heart sizeand mediastinal contours are normal. The pulmonary vasculature isnormal. No | | focal airspace opacities, pleural effusions, orpneumothorax. Cervical fusion hardware | | is noted. No acute osseousfindings.IMPRESSION:No evidence of an acute cardiopulmonary | | process.S: SQ ([id number]) Signed by: JAYNE SPEAR MD | |COMPARISON: [...] | | | | | |S: SQ [id number]) Signed by: JAYNE SPEAR MD | + + + +---------+ + + | Performing | Address | City/State/Zipcode | Phone Number | | Organization | | | | + +---------+ + + | [facility] | | | [phone] | + +---------+ + + | MISCELANIOUS LAB | | | [phone] | + +---------+ + + Troponin I [...] + | [facility] | [address] | [place] [address] | | | [facility] | [...] + + | [facility] | [address] | [place] [address] | | | [facility] | [...] + | [facility] | [address] | [place] [address] | | | [facility] | [...] + | [facility] | [address] | [place] [address] | | | [facility] | [...] + + | Glucose | 154 (H)Comment: Norwegian | 65 - 99 mg/dL | [facility] | | | | [employer] Association | [...] + | [facility] | [address] | [place] [address] | | | [facility] | | | | | LABORATORY | | | | + + + + + | [facility] | | | | | [facility] | | | | | LABORATORY | | | | + + + + + documented in this encounter Visit Diagnoses Not on filedocumented in this encounter"
--- OUTSIDE RECORDS SUMMARY | ~2020-08-06 | XMS | Encounter Summary ---
Demographics + + + | Address | [address] | | | [place] [address] | + + + | Home Phone [...] Providers + +------+ + | Care Outreach Counselor Name | Role | Phone | [...] ROJAS | | | | | [address] [place], [place] | [place] [address] | | | | | [address] | [phone] | | | | | [phone] | | | +--------+ + + + [...] Interrogation | | | | | [place], | (Primary Dx); | | | | | [place] [address] | Pacemaker; | | | | | [phone] | Sinoatrial node | | | | | | dysfunction (HCC) | | | | | | with symptomatic | | | | | | bradycardia | +--------+ + + + + | 08/21/ | Implant | Cardiology | Daljit Singletary, | Remote Device | | 2019 | Monitor | | [address] | Interrogation | | | | | [place], | (Primary Dx); | | | | | [place] [address] | Pacemaker; | | | | | [phone] | Sinoatrial node | | | | | | dysfunction (HCC) | | | | | | with symptomatic | | | | | | bradycardia | +--------+ + + + + | 08/21/ | Implant | Cardiology | Daljit Singletary, | Remote Device | | 2019 | Monitor | | MD [address] | Interrogation | | | | | [place], | (Primary Dx); | | | | | [place] [address] | Pacemaker; | | | | | [phone] | Sinoatrial node | | | | | | dysfunction (HCC) | | | | | | with symptomatic | | | | | | bradycardia | +--------+ + + + + | 08/21/ | Implant | Cardiology | Daljit Singletary, | Remote Device | | 2019 | Monitor | | MD [address] | Interrogation | | | | | [place], | (Primary Dx); | | | | | [place] [address] | Pacemaker; | | | | | [phone] | Sinoatrial node | | | | | | dysfunction ([facility]) | | | | | | with symptomatic | | | | | | bradycardia | +--------+ + + + + | 08/21/ | Implant | Cardiology | Daljit Singletary, | Remote Device | | 2019 | Monitor | | MD [address] | Interrogation | | | | | [place], | (Primary Dx); | | | | | [place] [address] | Pacemaker; | | | | | [phone] | Sinoatrial node | | | | [...] | | | | | | [place] [address] | | | | | | [phone] | | | | | | | | +--------+ + + + + documented as of this encounter Visit Diagnoses Not on filedocumented in this encounter"
--- OUTSIDE RECORDS SUMMARY | ~2020-08-06 | XMS | Encounter Summary ---
Demographics + + + | Address | [address] | | | [place] [address] | + + + | Home Phone [...] Team Providers + +------+ + | Care Muffle Worker Name | Role | Phone | + +------+ + | Kirk French MD | PCP | | + +------+ + Reason for Visit + +--------+ + | Reason | Onset | Comments | | | Date | | + +--------+ + | Appointment | 05/05/ | | | | 2017 | | + +--------+ + Encounter Details +--------+ + + + + | Date | Type | Department | Care Team | Description | +--------+ + + + + | 05/05/ | Telephone | [facility] | Silvia, | Appointment | | 2017 | | CARDIOLOGY [address] | PARISA [place] [address] | | | | | [place], | [place], | | | | | [place] [address] | [place] [address] | | | | | [phone] | [phone] | | | | | | | [...] pro vider is out. Called patient, left [facility] with request for patient to call back [...] Interrogation | | | | | [place], | (Primary Dx); | | | | | [place] [address] | Pacemaker; | | | | | [phone] | Sinoatrial node | | | | | | dysfunction (HCC) | | | | | | with symptomatic | | | | | | bradycardia | +--------+ + + + + | 08/21/ | Implant | Cardiology | Daljit Singletary, | Remote Device | | 2019 | Monitor | | MD [place] | Interrogation | | | | | [place], | (Primary Dx); | | | | | [place] [address] | Pacemaker; | | | | | [phone] | Sinoatrial node | | | | | | dysfunction (HCC) | | | | | | with symptomatic | | | | | | bradycardia | +--------+ + + + + | 08/21/ | Implant | Cardiology | Daljit Singletary, | Remote Device | | 2019 | Monitor | | MD [address] [place] | Interrogation | | | | | [place], | (Primary Dx); | | | | | [place] [address] | Pacemaker; | | | | | [phone] | Sinoatrial node | | | | | | dysfunction (HCC) | | | | | | with symptomatic | | | | | | bradycardia | +--------+ + + + + | 08/21/ | Implant | Cardiology | Daljit Singletary, | Remote Device | | 2019 | Monitor | | MD [address] [place] | Interrogation | | | | | [place], | (Primary Dx); | | | | | [place] [address] | Pacemaker; | | | | | [phone] | Sinoatrial node | | | | | | dysfunction (HCC) | | | | | | with symptomatic | | | | | | bradycardia | +--------+ + + + + | 08/21/ | Implant | Cardiology | Daljit Singletary, | Remote Device | | 2019 | Monitor | | MD [address] [place] | Interrogation | | | | | [place], | (Primary Dx); | | | | | [place] [address] | Pacemaker; | | | | | [phone] | Sinoatrial node | | | | [...] | 2019 | Visit | | PARISA Venron [address] | | | | | | [place], | | | | | | [place] [address] | | | | | | [phone] | | | | | | | | +--------+ + + + + documented as of this encounter Visit Diagnoses Not on filedocumented in this encounter"
--- OUTSIDE RECORDS SUMMARY | ~2020-08-06 | XMS | Encounter Summary ---
Demographics + + + | Address | [address] | | | [place] [address] | + + + | Home Phone [...] Providers + +------+ + | Care Human Services Worker Name | Role | Phone | + +------+ + | Kirk French MD | PCP | | + +------+ + Reason for Visit + +--------+ + | Reason | Onset | Comments | | | Date | | + +--------+ + | Medication Refill | 07/23/ | | | | 2020 | | + +--------+ + Encounter Details +--------+ + + + + | Date | Type | Department | Care Team | Description | +--------+ + + + + | 07/22/ | Telephone | [facility] | Kirk French | Medication Refill | | 2019 | | [facility] | MD Bre[address] | | | | | [facility] [address] | | | | | [address] | [place] [address] | | | | | [place], [place] | [phone] | | | | | [address] | | | | | | [phone] | | | +--------+ + + + [...] this encounter Miscellaneous Notes Telephone Encounter - Rosy Desouza - 07/23/2020 4:01 PM PDTFred, is calling again for Me dication Refill and would like a call back. Additional Call Details: States Reed has not received prescriptions yet. Please resend and call him back at [phone] when done. elephone Encounter - Geri Witt, Farm Facility Manager - 07/22/2020 1:03 PM PDTrefill documented in this encounter Plan of Treatment +--------+ + + + + | Date | Type | Specialty | Care Team | Description | +--------+ + + + + | 08/21/ | Implant | Cardiology | Daljit Singletary, | Remote Device | | 2019 | Monitor | | MD [address] [place] | Interrogation | | | | | [place], | (Primary Dx); | | | | | [place] [address] | Pacemaker; | | | | | [phone] | Sinoatrial node | | | | [...] Interrogation | | | | | [place], | (Primary Dx); | | | | | [place] [address] | Pacemaker; | | | | | [phone] | Sinoatrial node | | | | [...] Interrogation | | | | | [place], | (Primary Dx); | | | | | [place] [address] | Pacemaker; | | | | | [phone] | Sinoatrial node | | | | [...] Interrogation | | | | | [place], | (Primary Dx); | | | | | [place] [address] | Pacemaker; | | | | | [phone] | Sinoatrial node | | | | [...] Interrogation | | | | | [place], | (Primary Dx); | | | | | [place] [address] | Pacemaker; | | | | | [phone] | Sinoatrial node | | | | [...] | | | | | | [place] [address] | | | | | | [phone] | | | | | | | | +--------+ + + + + documented as of this encounter Visit Diagnoses Not on filedocumented in this encounter"
--- OUTSIDE RECORDS SUMMARY | ~2020-08-06 | XMS | Encounter Summary ---
Demographics + + + | Address | [address] | | | [place] [address] | + + + | Home Phone [...] + + | 12/19/ | Abstract | [facility] | Daljit Singletary, | Chest pain (Primary | | 2013 | | CARDIOLOGY [address] | MD [address] [place] | Dx); SINUS | | | | [place], | [place], | [place] | | | | [place] [address] | [place] [address] | | | | | [phone] | [phone] | | | | | | | [...] | Monitor | | MD [address] [place] [address] | Interrogation | | | | | [place], | (Primary Dx); | | | | | [place] [address] | Pacemaker; | | | | | [phone] | Sinoatrial node | | | | | | dysfunction ([facility]) | | | | | | with symptomatic | | | | | | bradycardia | +--------+ + + + + | 08/21/ | Implant | Cardiology | Daljit Singletary, | Remote Device | | 2019 | Monitor | | MD [address] [place] | Interrogation | | | | | [place], | (Primary Dx); | | | | | [place] [address] | Pacemaker; | | | | | [phone] | Sinoatrial node | | | | | | dysfunction ([facility]) | | | | | | with symptomatic | | | | | | bradycardia | +--------+ + + + + | 08/21/ | Implant | Cardiology | Daljit Singletary, | Remote Device | | 2019 | Monitor | | MD [address] [place] | Interrogation | | | | | [place], | (Primary Dx); | | | | | [place] [address] | Pacemaker; | | | | | [phone] | Sinoatrial node | | | | | | dysfunction (HCC) | | | | | | with symptomatic | | | | | | bradycardia | +--------+ + + + + | 08/21/ | Implant | Cardiology | Daljit Singletary, | Remote Device | | 2019 | Monitor | | MD [address] [place] | Interrogation | | | | | [place], | (Primary Dx); | | | | | [place] [address] | Pacemaker; | | | | | [phone] | Sinoatrial node | | | | | | dysfunction (HCC) | | | | | | with symptomatic | | | | | | bradycardia | +--------+ + + + + | 08/21/ | Implant | Cardiology | Daljit Singletary, | Remote Device | | 2019 | Monitor | | MD [address] [place] | Interrogation | | | | | [place], | (Primary Dx); | | | | | [place] [address] | Pacemaker; | | | | | [phone] | Sinoatrial node | | | | [...] | | | | | | [place] [address] | | | | | | [phone] | | | | | | | | +--------+ + + + + documented as of this encounter Visit Diagnoses + + | Diagnosis | + + | Chest pain - Primary Chest pain, unspecified | + + | SINUS BRADYCARDIA Sinoatrial node dysfunction | + + | Remote Device [...]
--- OUTSIDE RECORDS SUMMARY | ~2020-08-06 | XMS | Encounter Summary ---
Demographics + + + | Address | [address] | | | [place] [address] | + + + | Home Phone [...] Team Providers + +------+ + | Care Justice Court Judge Name | Role | Phone | [...] + + | 03/07/ | Office | [facility] | Silvia, | SINUS BRADYCARDIA | | 2013 | Visit | CARDIOLOGY [address] | PARISA Vernon [address] | (Primary Dx); | | | | [place], | [place], | Syncope; Symptomatic | | | | [place] [address] | [place] [address] | PVCs; Pacemaker - | | | | [phone] | [phone] | Medtronic - [id number] | | | [...] Sanchez Date: March 07, 2014 : 1960 Brush Polisher: Kailey Pruitt RN Device Manager Card:Medtronic Sense (mV) Impedance (?) Capture (V) Capture (ms) A Lead >5.60 402 1.500 0.09 RV Lead >31.36 522 2.00 0.09 LV Lead Battery Impedance (?): 528 Battery Voltage (V): 2.79 NM Interval (ms): 147 AR Interval (ms): 217 VA Conduction: Mode Switch Events: 0 % of time: 0 -NURSE LDR: <0.1% AP-NURSE LDR: 0.1% -VS: 23.8% AP-VS: 76.1% NURSE LDR: Magnetic Rate: 85 LINDA: 65 LEAH: Current [...] Pruitt RN 03/07/2014 12:00 Janeen Mccollum [place] MORTGAGE OR LOAN UNDERWRITER - 03/07/2014 11:07 AM PDT PATIENT NAME: [...] headaches. He paulino d been seen at [facility] a couple times with chest [...] needed for Chest pain. 25 tablet 12 Canjilon-3 Fatty Acids (SALMON OIL-1000 PO) CAPS, one [...] Sanchez Date: March 07, 2014 : 1960 Brush Polisher: Kailey Pruitt RN Device Manager Card:Adnavance Techn[employer] Sense (mV) Impedance (?) Capture (V) Capture (ms) A Lead >5.60 402 1.500 0.09 RV Lead >31.36 522 2.00 0.09 LV Lead Battery Impedance (?): 528 Battery Voltage (V): 2.79 NM Interval (ms): 147 AR Interval (ms): 217 VA Conduction: Mode Switch Events: 0 % of time: 0 -NURSE LDR: <0.1% AP-NURSE LDR: 0.1% -VS: 23.8% AP-VS: 76.1% NURSE LDR: Magnetic Rate: 85 LINDA: 65 LEAH: Current [...] attenuation cannot completely be ruled out. [facility] 12/25/13, shows noncritical coronary artery [...] pain. He is in class II of [place] [employer] functional class . There are [...] to go back in 3 days to [place] for an attempt of ablation under general [...] palpitations.. He is in class II of [place] [employer] functional class. There are no [...] bring in his blood pressure logs from [facility] e 5. Lightheadedness and dizziness/ presyncope: [...] made to ensure accuracy; however, inadvertent computerized sustainability project coordinator errors may be pre sent. Electronically signed by: PARISA Russell 03/07/2014 11:07 documented in this encounter Procedure Notes Kailey Pruitt RN - 03/07/2014 12:01 PM PDTAssociated Order(s): DEVICE INTERROGATIONProcedu re(s): DEVICE INTERROGATIONPre-Procedure Diagnose(s): Sinoatrial node dysfunction (HCC); Syn cope; Symptomatic PVCs; Presence of permanent cardiac pacemaker DEVICE INTERROGATION Name: Moe Sanchez Date: March 07, 2014 : 1960 Brush Polisher: Kailey Pruitt RN Device Manager Card:[employer]nav[employer] Techn[employer] Sense (mV) Impedance (?) Capture (V) Capture (ms) A Lead >5.60 402 1.500 0.09 RV Lead >31.36 522 2.00 0.09 LV Lead Battery Impedance (?): 528 Battery Voltage (V): 2.79 NM Interval (ms): 147 AR Interval (ms): 217 VA Conduction: Mode Switch Events: 0 % of time: 0 -NURSE LDR: <0.1% AP-NURSE LDR: 0.1% -VS: 23.8% AP-VS: 76.1% NURSE LDR: Magnetic Rate: 85 LINDA: 65 LEAH: Current [...] Dx); | | | | | [place] [address] | Pacemaker; | | | | | [phone] | Sinoatrial node | | | | | | dysfunction (HCC) | | | | | | with symptomatic | | | | | | bradycardia | +--------+ + + + + | 08/21/ | Implant | Cardiology | Daljit Singletary, | Remote Device | | 2019 | Monitor | | MD [address] [place] | Interrogation | | | | | [place], | (Primary Dx); | | | | | [place] [address] | Pacemaker; | | | | | [phone] | Sinoatrial node | | | | | | dysfunction (HCC) | | | | | | with symptomatic | | | | | | bradycardia | +--------+ + + + + | 08/21/ | Implant | Cardiology | Daljit Singletary, | Remote Device | | 2019 | Monitor | | MD [address] [place] | Interrogation | | | | | [place], | (Primary Dx); | | | | | [place] [address] | Pacemaker; | | | | | [phone] | Sinoatrial node | | | | | | dysfunction (HCC) | | | | | | with symptomatic | | | | | | bradycardia | +--------+ + + + + | 08/21/ | Implant | Cardiology | Daljit Singletary, | Remote Device | | 2019 | Monitor | | MD [address] [place] | Interrogation | | | | | [place], | (Primary Dx); | | | | | [place] [address] | Pacemaker; | | | | | [phone] | Sinoatrial node | | | | | | dysfunction (HCC) | | | | | | with symptomatic | | | | | | bradycardia | +--------+ + + + + | 08/21/ | Implant | Cardiology | Daljit Singletary, | Remote Device | | 2019 | Monitor | | MD [address] [place] | Interrogation | | | | | [place], | (Primary Dx); | | | | | [place] [address] | Pacemaker; | | | | | [phone] | Sinoatrial node | | | | [...] W | | | | | | [place], | | | | | | [place] [address] | | | | | | [phone] | | | | | | | [...] 07, 2014 : | | | 1960 Brush Polisher: Kailey Pruitt RN Device | | | Manager Card:Adnavance Technologiestronic Sense (mV) Impedance (?) Capture (V) | | | Capture (ms) A Lead >5.60 402 1.500 0.09 RV Lead >31.36 522 2.00 | | | 0.09 LV Lead Battery Impedance (?): 528 Battery Voltage (V): | | | 2.79 NM Interval (ms): 147 AR Interval (ms): 217 VA Conduction: | | | Mode Switch Events: 0 % of time: 0 -NURSE LDR: <0.1% AP-NURSE LDR: 0.1% -VS: | | | 23.8% AP-VS: 76.1% NURSE LDR: Magnetic Rate: 85 LINDA: 65 LEAH: Current [...] | | Date: March 07, 2014DOB: 1960 Brush Polisher: Kailey Pruitt RN Device | | Manager Card:[email or web address] Sense (mV) Impedance (?) Capture (V) Capture (ms) A Lead >5.60 | | 402 1.500 0.09 RV Lead >31.36 522 2.00 0.09 LV Lead Battery Impedance (?): 528 | | Battery Voltage (V): 2.79 NM Interval (ms): 147 AR Interval (ms): 217 VA Conduction: | | Mode Switch Events: 0 % of time: 0 -NURSE LDR: <0.1% AP-NURSE LDR: 0.1% -VS: 23.8% AP-VS: 76.1% | | NURSE LDR: Magnetic Rate: 85 LINDA: 65 LEAH: Current [...]
--- OUTSIDE RECORDS SUMMARY | ~2020-08-06 | XMS | Encounter Summary ---
Demographics + + + | Address | [address] | | | [place] [address] | + + + | Home Phone [...] CARDIOLOGY [address] | MD [address] [place] | Interrogation | | | | [place], | [place], | (Primary Dx); | | | | [place] [address] | [place] [address] | Pacemaker; | | | | [phone] | [phone] | Sinoatrial node | | | | [...] (HCC)Date of Remote Interrogation: 2018 Refer to In Hand Guides documentation and remote PDF scanned into [employer] for remote interrogation re sults. Data collected [...] Interrogation | | | | | [place], | (Primary Dx); | | | | | [place] [address] | Pacemaker; | | | | | [phone] | Sinoatrial node | | | | | | dysfunction (HCC) | | | | | | with symptomatic | | | | | | bradycardia | +--------+ + + + + | 08/21/ | Implant | Cardiology | Daljit Singletary, | Remote Device | | 2019 | Monitor | | MD [address] | Interrogation | | | | | [place], | (Primary Dx); | | | | | [place] [address] | Pacemaker; | | | | | [phone] | Sinoatrial node | | | | | | dysfunction (HCC) | | | | | | with symptomatic | | | | | | bradycardia | +--------+ + + + + | 08/21/ | Implant | Cardiology | Daljit Singletary, | Remote Device | | 2019 | Monitor | | MD [address] | Interrogation | | | | | [place], | (Primary Dx); | | | | | [place] [address] | Pacemaker; | | | | | [phone] | Sinoatrial node | | | | | | dysfunction (HCC) | | | | | | with symptomatic | | | | | | bradycardia | +--------+ + + + + | 08/21/ | Implant | Cardiology | Daljit Singletary, | Remote Device | | 2019 | Monitor | | MD [address] | Interrogation | | | | | [place], | (Primary Dx); | | | | | [place] [address] | Pacemaker; | | | | | [phone] | Sinoatrial node | | | | | | dysfunction (HCC) | | | | | | with symptomatic | | | | | | bradycardia | +--------+ + + + + | 08/21/ | Implant | Cardiology | Daljit Singletary, | Remote Device | | 2019 | Monitor | | MD [address] [place] | Interrogation | | | | | [place], | (Primary Dx); | | | | | [place] [address] | Pacemaker; | | | | | [phone] | Sinoatrial node | | | | [...] W | | | | | | [place], | | | | | | [place] [address] | | | | | | [phone] | | | | | | | [...] Daljit | PACEART | | MD Gemini 05/01/2019 11:11Date of Remote Interrogation: | | | 04/11/2019 Refer to [employer] documentation and remote PDF scanned into | | | [facility] for remote interrogation results. Data [...]
--- OUTSIDE RECORDS SUMMARY | ~2020-08-06 | XMS | Encounter Summary ---
Demographics + + + | Address | [address] | | | [place] [address] | + + + | Home Phone [...] Team Providers + +------+ + | Care Blind Slat Stapling Machine Operator Name | Role | Phone [...] [address] | | | | | | [place], [place] | (Fax) | | | | | [address] | | | | | | [phone] | | | +--------+ + + + [...] Monitor | | MD [address] [place] | Interrogation | | | | | [place], | (Primary Dx); | | | | | [place] [address] | Pacemaker; | | | | | [phone] | Sinoatrial node | | | | | | dysfunction (HCC) | | | | | | with symptomatic | | | | | | bradycardia | +--------+ + + + + | 08/21/ | Implant | Cardiology | Daljit Singletary, | Remote Device | | 2019 | Monitor | | MD [address] [place] | Interrogation | | | | | [place], | (Primary Dx); | | | | | [place] [address] | Pacemaker; | | | | | [phone] | Sinoatrial node | | | | | | dysfunction (HCC) | | | | | | with symptomatic | | | | | | bradycardia | +--------+ + + + + | 08/21/ | Implant | Cardiology | Daljit Singletary, | Remote Device | | 2019 | Monitor | | MD [address] [place] | Interrogation | | | | | [place], | (Primary Dx); | | | | | [place] [address] | Pacemaker; | | | | | [phone] | Sinoatrial node | | | | | | dysfunction (HCC) | | | | | | with symptomatic | | | | | | bradycardia | +--------+ + + + + | 08/21/ | Implant | Cardiology | Daljit Singletary, | Remote Device | | 2019 | Monitor | | MD [address] [place] | Interrogation | | | | | [place], | (Primary Dx); | | | | | [place] [address] | Pacemaker; | | | | | [phone] | Sinoatrial node | | | | | | dysfunction (HCC) | | | | | | with symptomatic | | | | | | bradycardia | +--------+ + + + + | 08/21/ | Implant | Cardiology | Daljit Singletary, | Remote Device | | 2020 | Monitor | | MD [address] [place] | Interrogation | | | | | [place], | (Primary Dx); | | | | | [place] [address] | Pacemaker; | | | | | [phone] | Sinoatrial node | | | | [...] | | | | | | [place] [address] | | | | | | [phone] | | | | | | | | +--------+ + + + + documented as of this encounter Visit Diagnoses Not on filedocumented in this encounter"
--- OUTSIDE RECORDS SUMMARY | ~2020-08-06 | XMS | Encounter Summary ---
Demographics + + + | Address | [address] | | | [place] [address] | + + + | Home Phone [...] Providers + +------+ + | Care Funeral Director/Embalmer Name | Role | Phone | + [...] | 05/08/ | Telephone | [facility] | Emmanuel Daniel MD | Other | | 2019 | | GASTROENTEROLOGY | [address], [place] | | | | | [address] | [address] [place], [place] | | | | | [address] [place], [place] | [address] | | | | | [address] | | | | | | [phone] | | | +--------+ + + + [...] completed this am; however was giv en Vibgiselazi for functional diarrhea). Electronically signed by Lisa Pisano RN at 8:30 AM PDTTelephone Encounter - Lisa Pisano RN - 05/09/2019 8:39 AM PDT Patient called pissed off and cursing; he stated he went to [facility] last night with sto mach cramps, nausea; they gave imodium IV; he is now on his day of no food or able to ke ep fluids down; he refuses to call [facility] at this time to find out about his referral status; he also refuses to call his PCP or go to local ED's; he states he needs care now and will co me to [facility] for help; advised patient if he comes [...] Provider/Nurse: Dr. Daniel / Darryn Call back number:[phone] elephone Encounter - Lisa Bonner RN - 05/08/2019 2:04 PM PDTReturned call to patient; suggested he conta ct [facility] [place]; provided the toll free number listed from the referral; [phone]. He s tated he was not sure he wanted to go now because it is taking so long; advised it can take a while for referrals to get approved, then paperwork gathered and sent; once received the [facility] clinic reviews and assigns; he will call but [...] anywhere with the numb er provided to [facility] he will contact this clinic. elephone Encounter - Anastacio Bennett - 05/08/2019 1:46 PM PDTName of Caller:Moe Sanchez "Amilcar" Name of Patient:Moe Sanchez "Amilcar" Reason for call: Patient called and wanted to know the status of his referral to [facility]. Pham ent stated that has not received a call from them and informed patient that the clinical sta ff re-faxed referral to [facility] on 04/10/19. Patient wanted to speak with our electrical maintenance supervisor but aster was unavailable. Patient didn't have a pen and paper to write her number done. Patient sta kevin that he going to head to the hospital since he in severe pain/IBS. Routing to clinical [facility]. Provider/Nurse: Dr. Daniel/ Darryn العلي back number: [phone] documented in this encou nter Plan of [...] Dx); | | | | | [place] [address] | Pacemaker; | | | | | [phone] | Sinoatrial node | | | | [...] | Pacemaker; | | | | | [phone] | Sinoatrial node | | | | [...] Dx); | | | | | [place] [address] | Pacemaker; | | | | | [phone] | Sinoatrial node | | | | | | dysfunction ([facility]) | | | | | | with symptomatic | | | | | | bradycardia | +--------+ + + + + | 08/21/ | Implant | Cardiology | Daljit Singletary, | Remote Device | | 2019 | Monitor | | MD [address] | Interrogation | | | | | [place], | (Primary Dx); | | | | | [place] [address] | Pacemaker; | | | | | [phone] | Sinoatrial node | | | | | | dysfunction ([facility]) | | | | | | with symptomatic | | | | | | bradycardia | +--------+ + + + + | 08/21/ | Implant | Cardiology | Daljit Singletary, | Remote Device | | 2019 | Monitor | | [address] | Interrogation | | | | | [place], | (Primary Dx); | | | | | [place] [address] | Pacemaker; | | | | | [phone] | Sinoatrial node | | | | [...] [address] | | | | | | [place], | | | | | | [place] [address] | | | | | | [phone] | | | | | | | | +--------+ + + + + documented as of this encounter Visit Diagnoses Not on filedocumented in this encounter
--- OUTSIDE RECORDS SUMMARY | ~2020-08-06 | XMS | Encounter Summary ---
Demographics + + + | Address | [address] | | | [place] [address] | + + + | Home Phone [...] Team Providers + +------+ + | Care Wrap Turner Name | Role | Phone | [address] | | | | | | [place], [place] | (Fax) | | | | | [address] | | | | | | [phone] | | | +--------+ + + + [...] | Monitor | | MD [address] | Interrogation | | | | | [place], | (Primary Dx); | | | | | [place] [address] | Pacemaker; | | | | | [phone] | Sinoatrial node | | | | | | dysfunction (HCC) | | | | | | with symptomatic | | | | | | bradycardia | +--------+ + + + + | 08/21/ | Implant | Cardiology | Daljit Singletary, | Remote Device | | 2019 | Monitor | | MD [address] | Interrogation | | | | | [place], | (Primary Dx); | | | | | [place] [address] | Pacemaker; | | | | | [phone] | Sinoatrial node | | | | | | dysfunction (HCC) | | | | | | with symptomatic | | | | | | bradycardia | +--------+ + + + + | 08/21/ | Implant | Cardiology | Daljit Singletary, | Remote Device | | 2019 | Monitor | | MD [address] | Interrogation | | | | | [place], | (Primary Dx); | | | | | [place] [address] | Pacemaker; | | | | | [phone] | Sinoatrial node | | | | | | dysfunction (HCC) | | | | | | with symptomatic | | | | | | bradycardia | +--------+ + + + + | 08/21/ | Implant | Cardiology | Daljit Singletary, | Remote Device | | 2019 | Monitor | | MD [address] | Interrogation | | | | | [place], | (Primary Dx); | | | | | [place] [address] | Pacemaker; | | | | | [phone] | Sinoatrial node | | | | | | dysfunction (HCC) | | | | | | with symptomatic | | | | | | bradycardia | +--------+ + + + + | 08/21/ | Implant | Cardiology | Daljit Singletary, | Remote Device | | 2020 | Monitor | | MD [address] | Interrogation | | | | | [place], | (Primary Dx); | | | | | [place] [address] | Pacemaker; | | | | | [phone] | Sinoatrial node | | | | [...] | | | | | | [place] [address] | | | | | | [phone] | | | | | | | | +--------+ + + + + documented as of this encounter Visit Diagnoses Not on filedocumented in this encounter"
--- OUTSIDE RECORDS SUMMARY | ~2020-08-06 | XMS | Encounter Summary ---
Demographics + + + | Address | [address] | | | [place] [address] | + + + | Home Phone [...] Team Providers + +------+ + | Care Resolute Professional Name | Role | Phone | [...] + + | 07/13/ | Telephone | [facility] | Kirk French | Referral Question | | 2019 | | [facility] | MD [address] | | | | | [address] | | | | | [address] | [place] [address] | | | | | [place], [place] | [phone] | | | | | [address] | | | | | | [phone] | | | +--------+ + + + [...] Miscellaneous Notes Telephone Encounter - Geri Bear Account Services Coordinator - 07/14/2019 4:06 PM PDTCalled and left for return call. Electronically signed by Reji Phelps Assistant at 07/14 4:07 PM PDTTelephone Encounter - Geri Bear Account Services Coordinator - 07/13/2019 5:03 PM PDT----- Message from Shelley Hess sent at 07/12/2019 16:52 PDT ----- Contact: Patient Patient called and has questions regarding an order for Cardio and Pulmonary Rehab at [facility]. He received a call from them today and has no idea where this came fr om. Would like a call back. He also wanted to let you know he had a total right shoulder r edone 06/13/19. Caller: Amilcar Relationship to patient: Patient Please call back at [phone] Can a Detailed VM be left on this number: Yes documented in this encounter Plan of Treatment +--------+ + + + + | Date | Type | Specialty | Care Team | Description | +--------+ + + + + | 08/21/ | Implant | Cardiology | Daljit Singletary, | Remote Device | | 2019 | Monitor | | MD [address] [place] | Interrogation | | | | | [place], | (Primary Dx); | | | | | [place] [address] | Pacemaker; | | | | | [phone] | Sinoatrial node | | | | | | dysfunction (HCC) | | | | | | with symptomatic | | | | | | bradycardia | +--------+ + + + + | 08/21/ | Implant | Cardiology | Daljit Singletary, | Remote Device | | 2019 | Monitor | | [address] | Interrogation | | | | | [place], | (Primary Dx); | | | | | [place] [address] | Pacemaker; | | | | | [phone] | Sinoatrial node | | | | | | dysfunction (HCC) | | | | | | with symptomatic | | | | | | bradycardia | +--------+ + + + + | 08/21/ | Implant | Cardiology | Daljit Singletary, | Remote Device | | 2019 | Monitor | | MD [address] | Interrogation | | | | | [place], | (Primary Dx); | | | | | [place] [address] | Pacemaker; | | | | | [phone] | Sinoatrial node | | | | | | dysfunction ([facility]) | | | | | | with symptomatic | | | | | | bradycardia | +--------+ + + + + | 08/21/ | Implant | Cardiology | Daljit Singletary, | Remote Device | | 2019 | Monitor | | MD [address] | Interrogation | | | | | [place], | (Primary Dx); | | | | | [place] [address] | Pacemaker; | | | | | [phone] | Sinoatrial node | | | | | | dysfunction (HCC) | | | | | | with symptomatic | | | | | | bradycardia | +--------+ + + + + | 08/21/ | Implant | Cardiology | Daljit Singletary, | Remote Device | | 2019 | Monitor | | [address] | Interrogation | | | | | [place], | (Primary Dx); | | | | | [place] [address] | Pacemaker; | | | | | [phone] | Sinoatrial node | | | | [...] [address] | | | | | | [place], | | | | | | [place] [address] | | | | | | [phone] | | | | | | | | +--------+ + + + + documented as of this encounter Visit Diagnoses Not on filedocumented in this encounter"
--- OUTSIDE RECORDS SUMMARY | ~2020-08-06 | XMS | Encounter Summary ---
Demographics + + + | Address | [address] | | | [place] [address] | + + + | Home Phone [...] Providers + +------+ + | Care Roll Changer Name | Role | Phone | + +------+ + | Kirk French MD | PCP | | + +------+ + Encounter Details +--------+ + + + + | Date | Type | Department | Care Team | Description | +--------+ + + + + | 12/24/ | Hospital | [facility] | Harri, Emmanuel E, MD | Pain of upper | | 2018 | Encounter | MED CTR MP INTRA OP | [address], [place] | abdomen (Primary | | | | [address] | [address] [place], [place] | Dx); Functional | | | | [place], [place] | [address] | diarrhea; Weight | | | | [address] | | loss | | | | [phone] | | | +--------+ + + + [...] + + + +---------+ + + | Saco-3 Fatty | CAPS, one capsule by | [...] signed we'll proceed with upper endoscopy colonoscopy arEmmanuel hernandez MD - 12/02/2017 2:30 PM PST Moe [...] noct urnal symptoms. He was in [facility] 2 years ago and required [...] severe diarrhea probable infective occurring while visiting [facility] Diarrhea etiology and significance to be determined [...] Endoscopy Patient: Moe Sanchez : 1960 Acct: [id number] Exam Date: Sunday, December 24, 2017 Doctor: [...] If unable to reach your physician, call [facility] Emergency Department at [phone] [...] Exams Patient: Moe Sanchez : 1960 Acct: [id number] Exam Date: Sunday, December 24, 2017 Doctor: [...] If unable to reach your physician, call [facility] Emergency Department at [phone] [...] | | | | | [address] [place], | (Primary Dx); | | | | | [place] [address] | Pacemaker; | | | | | [phone] | Sinoatrial node | | | | | | dysfunction (HCC) | | | | | | with symptomatic | | | | | | bradycardia | +--------+ + + + + | 08/21/ | Implant | Cardiology | Daljit Singletary, | Remote Device | | 2019 | Monitor | | MD [address] | Interrogation | | | | | [place]. [place], | (Primary Dx); | | | | | [place] [address] | Pacemaker; | | | | | [phone] | Sinoatrial node | | | | | | dysfunction (HCC) | | | | | | with symptomatic | | | | | | bradycardia | +--------+ + + + + | 08/21/ | Implant | Cardiology | Daljit Singletary, | Remote Device | | 2019 | Monitor | | MD [address] | Interrogation | | | | | [place]. [place], | (Primary Dx); | | | | | [place] [address] | Pacemaker; | | | | | [phone] | Sinoatrial node | | | | | | dysfunction (HCC) | | | | | | with symptomatic | | | | | | bradycardia | +--------+ + + + + | 08/21/ | Implant | Cardiology | Daljit Singletary, | Remote Device | | 2019 | Monitor | | MD [address] | Interrogation | | | | | [place], | (Primary Dx); | | | | | [place] [address] | Pacemaker; | | | | | [phone] | Sinoatrial node | | | | | | dysfunction (HCC) | | | | | | with symptomatic | | | | | | bradycardia | +--------+ + + + + | 08/21/ | Implant | Cardiology | Daljit Singletary, | Remote Device | | 2019 | Monitor | | MD [address] | Interrogation | | | | | [facility] [place], | (Primary Dx); | | | | | [place] [address] | Pacemaker; | | | | | [phone] | Sinoatrial node | | | | [...] [address] | | | | | | [place], | | | | | | [place] [address] | | | | | | [phone] | | | | | | | [...] + | Performed at: 01 - [facility] [place] [address], | REFERENCE LAB | | [place] [id number] Sports Editor: William Andrew MD, Phone: | ARSH - KINA | | [phone] | | + + + + + + + + | Performing | Address | City/State/Zipcode | Phone Number | | Organization | | | | + + + + + | REFERENCE LAB | [address] | [place], [place] | [phone] | | [facility] | [facility] | [address] | | + + + + + [...] [address] | [place] | [phone] | | [facility] | | [address] | | | - LABORATORY | | [...] ST. | [address] | [place] | [phone] | | [facility] | | [address] | | | - LABORATORY | | [...] + | [address] | [address] | [place] | [phone] | | [facility] | | [address] | | | - LABORATORY | | [...] + + | Performed at: 01 - [place] [address], | REFERENCE LAB | | [place], [place] [id number] Sports Editor: William Andrew MD, Phone: | THALIARP - KINA | | [phone] | | + + + + + + + + | Performing | Address | City/State/Zipcode | Phone Number | | Organization | | | | + + + + + | REFERENCE LAB | [address] | [place], [place] | [phone] | | [facility] | [facility] | [address] | | + + + + + [...] [address] | [place] | [phone] | | [facility] | | [address] | | | - LABORATORY | | [...] + | [facility] | [address] | [place] | [phone] | | [facility] | | [address] | | | - LABORATORY | | [...] [address] | [place] | [phone] | | [facility] | | [address] | | | - LABORATORY | | [...] [address] | [place] | [phone] | | [facility] | | [address] | | | - LABORATORY | | [...] [address] | [place] | [phone] | | [facility] | | [address] | | | - LABORATORY | | | | + + + + + EGD (12/24/2017 1:19 PM PST) + + | Specimen | + + | | + + + + -+ | Narrative | Performed At | + + -+ | | [facility] | | GastroenterologyPatient Name: Moe Fourniercedure Date: 12/24/2017 | PROVATION | | 1:19 PMMRN: [id number] #: [id number] of : | | | 1960dmit Type: AmbulatoryAge: 57Room: [facility] 01Gender: MaleNote | | | Status: FinalizedAttending MD: Emmanuel Daniel , [facility] | | | Upper GI endoscopyIndications: Diarrhea, Weight | | | lossProviders: Emmanuel Daniel MD, Maria Isabel Morris RN, | | | Kim Hicks, Java Groovy Developer, [place] | | | Sapna Barakat MD [...] the anesthesiologist and | | | the cytogenetic technician in the endoscopy suite. Mental Status [...] PMScope Out: 1:31:13 PM | | | [facility], [address] [place] [address] | | | [place] [address] | | | - Discharge patient to [...] |Scope Out: 1:31:13 PM | | | [facility], [address] [place], [place] | | | [address] | | + + -+ + +---------+ [...] SanchezKane Date: 12/24/2017 | PROVATION | | 1:17 PMMRN: [id number] #: [id number] of : | | | 9Admit Type: AmbulatoryAge: 57Room: [facility] 01Gender: MaleNote | | | Status: FinalizedAttending MD: Emmanuel Daniel [facility]cedure: | | | ColonoscopyIndications: Clinically significant diarrhea of | | | unexplained originProviders: Emmanuel Daniel MD, Maria Isabel | | | Arturo, RN, Kim Hicks, Java Groovy Developer, | | | Jarett Barakat MD (Anesthesia [...] | | | the anesthesiologist and the cytogenetic technician in the endoscopy suite. | | [...] Scope In: 1:32:55 PMScope Out: 1:48:57 PM [facility] | | | [facility], [address] [place] [address] | | | [phone] | | | - Await pathology results. [...] |Scope Out: 1:48:57 PM | | | [facility], [address] [facility], [place], [place] | | | [address] | | + + -+ + +---------+ [...] | colonic mucosa with focal adenomatous change. CLR:[facility]:C2NR | | | GROSS DESCRIPTION: [...] formalin labeled | | | "Moe Sanchez, D." and labeled "C, bx TI" on [...] | | cm, submitted, all in (D1). ka:CLR:[facility] ADDITIONAL NOTES: | | | Immunohistochemical studies were performed on this case with the | | | appropriate positive controls that react as expected. This test was | | | developed and its performance characteristics determined by [facility] | | | [facility]. It has not been cleared or approved by the U.S. Food | | | and Drug Administration. The FDA has determined that such clearance | | | or approval is not necessary. This test is used for clinical | | | purposes. It should not be regarded as investigational or for | | | research. [facility] is certified under the Clinical | | | Laboratory Improvement Amendments of 1988 (CLIA) as qualified to | | | perform high complexity clinical laboratory testing. This assay | | | has not been validated for specimens that have been decalcified. | | | PERFORMING LABORATORY: Tissue processing and slide preparation were | | | performed by [facility], [address] [place] [address], [address], [place] | | | [place] [address] (Hospital Staff Pharmacist: Evan Frausto M.D. CLIA#: | | | [id number]). Professional interpretation was performed by [facility] | | | [facility], [address] [place] [address], [address], [place] [address] | | | (Hospital Staff Pharmacist: Evan Frausto M.D.; CLIA#: [id number]). | | | Diagnostician: Rafael Bales MD [...]
--- OUTSIDE RECORDS SUMMARY | ~2020-08-06 | XMS | Encounter Summary ---
Demographics + + + | Address | [address] | | | [place] [address] | + + + | Home Phone [...] Providers + +------+ + | Care Assistant Associate Professor Name | Role | Phone | [...] [address] | | | | [place], | [place], | | | | | [place] [address] | [place] [address] | | | | | [phone] | | | | | | | [...] 2019 | Monitor | | [address] | Interrogation | | | | | [place], | (Primary Dx); | | | | | [place] [address] | Pacemaker; | | | | | [phone] | Sinoatrial node | | | | | | dysfunction (HCC) | | | | | | with symptomatic | | | | | | bradycardia | +--------+ + + + + | 08/21/ | Implant | Cardiology | Daljit Singletary, | Remote Device | | 2020 | Monitor | | MD [address] | Interrogation | | | | | [place], | (Primary Dx); | | | | | [place] [address] | Pacemaker; | | | | | [phone] | Sinoatrial node | | | | | | dysfunction (HCC) | | | | | | with symptomatic | | | | | | bradycardia | +--------+ + + + + | 08/21/ | Implant | Cardiology | Daljit Singletary, | Remote Device | | 2019 | Monitor | | MD [address] | Interrogation | | | | | [place], | (Primary Dx); | | | | | [place] [address] | Pacemaker; | | | | | [phone] | Sinoatrial node | | | | | | dysfunction (HCC) | | | | | | with symptomatic | | | | | | bradycardia | +--------+ + + + + | 08/21/ | Implant | Cardiology | Daljit Singletary, | Remote Device | | 2019 | Monitor | | MD [address] | Interrogation | | | | | [place], | (Primary Dx); | | | | | [place] [address] | Pacemaker; | | | | | [phone] | Sinoatrial node | | | | | | dysfunction (HCC) | | | | | | with symptomatic | | | | | | bradycardia | +--------+ + + + + | 08/21/ | Implant | Cardiology | Daljit Singletary, | Remote Device | | 2019 | Monitor | | MD [address] | Interrogation | | | | | [place], | (Primary Dx); | | | | | [place] [address] | Pacemaker; | | | | | [phone] | Sinoatrial node | | | | [...] | | | | | | [place] [address] | | | | | | [phone] | | | | | | | [...] +--------+ + + + | EXTERNAL LAB: [facility] | Routin | 05/12/2016 | | Results [...] | EXTERNAL LAB: N[facility] | Routin | 05/12/2016 | | Results [...] + | [facility] | [address] | [place] | [phone] | | [facility] | | [address] | | | - LABORATORY [...]
--- OUTSIDE RECORDS SUMMARY | ~2020-08-06 | XMS | Encounter Summary ---
Demographics + + + | Address | [address] | | | [place] [address] | + + + | Home Phone [...] Providers + +------+ + | Care Brand Planner Name | Role | Phone | [...] + + | 02/01/ | Telephone | [facility] [place]STOPH | Silvia, | Other (unable to | | 2013 | | CARDIOLOGY [address] | [address] [place] [address] | take the isosorbide) | | | | [place], | [place], | | | | | [place] [address] | [place] [address] | | | | | [phone] | [phone] | | | | | | | [...] Dx); | | | | | [place] [address] | Pacemaker; | | | | | [phone] | Sinoatrial node | | | | | | dysfunction (HCC) | | | | | | with symptomatic | | | | | | bradycardia | +--------+ + + + + | 08/21/ | Implant | Cardiology | Daljit Singletary, | Remote Device | | 2019 | Monitor | | [address] [place] | Interrogation | | | | | [place], | (Primary Dx); | | | | | [place] [address] | Pacemaker; | | | | | [phone] | Sinoatrial node | | | | [...] Dx); | | | | | [place] [address] | Pacemaker; | | | | | [phone] | Sinoatrial node | | | | | | dysfunction ([facility]) | | | | | | with symptomatic | | | | | | bradycardia | +--------+ + + + + | 08/21/ | Implant | Cardiology | Daljit Singletary, | Remote Device | | 2019 | Monitor | | MD [address] [place] | Interrogation | | | | | [place], | (Primary Dx); | | | | | [place] [address] | Pacemaker; | | | | | [phone] | Sinoatrial node | | | | | | dysfunction (HCC) | | | | | | with symptomatic | | | | | | bradycardia | +--------+ + + + + | 08/21/ | Implant | Cardiology | AnshujohnsoncherelleDaljit, | Remote Device | | 2019 | Monitor | | [address] [place] | Interrogation | | | | | [place], | (Primary Dx); | | | | | [place] [address] | Pacemaker; | | | | | [phone] | Sinoatrial node | | | | [...] | | | | | | [place] [address] | | | | | | [phone] | | | | | | | | +--------+ + + + + documented as of this encounter Visit Diagnoses + + | Diagnosis | + + | Coronary artery disease - Primary Coronary atherosclerosis of unspecified type of | | vessel, ekuk or graft | + + | Hypertension [...]
--- OUTSIDE RECORDS SUMMARY | ~2020-08-06 | XMS | Encounter Summary ---
Demographics + + + | Address | [address] | | | [place] [address] | + + + | Home Phone [...] Providers + +------+ + | Care Home Theatre Technician Name | Role | Phone | [...] + + | 06/05/ | Telephone | [facility] | EladiomiriKirk | Other | | 2020 | | [facility] | MD Brea [address] | | | | | [address] | [address] | | | | | [address] | [place] [address] | | | | | [place], [place] | [phone] | | | | | [address] | | | | | | [phone] | | | +--------+ + + + [...] Notes Telephone Encounter - Geri Bear, Machine Sneller - 06/06/2020 9:18 AM PDTCan this b [...] that referred him there. Call back at [phone].. If this is a symptom based call, was patient offered triage? Not Applicable If this is a symptom based call and you were unable to immediately transfer the call to a lorraine bellamy rate quoting operator was caller made aware that if [...] Device | 2019 | Monitor | | [place] [address] [facility] | Interrogation | | | | | [place] [place], | (Primary Dx); | | | | | [place] [address] | Pacemaker; | | | | | [phone] | Sinoatrial node | | | | | | dysfunction (HCC) | | | | | | with symptomatic | | | | | | bradycardia | +--------+ + + + + | 08/21/ | Implant | Cardiology | Daljit Singletary, | Remote Device | | 2020 | Monitor | | MD [address] | Interrogation | | | | | [place], | (Primary Dx); | | | | | [place] [address] | Pacemaker; | | | | | [phone] | Sinoatrial node | | | | | | dysfunction (HCC) | | | | | | with symptomatic | | | | | | bradycardia | +--------+ + + + + | 08/21/ | Implant | Cardiology | Daljit Singletary, | Remote Device | | 2019 | Monitor | | MD [address] | Interrogation | | | | | [place], | (Primary Dx); | | | | | [place] [address] | Pacemaker; | | | | | [phone] | Sinoatrial node | | | | | | dysfunction (HCC) | | | | | | with symptomatic | | | | | | bradycardia | +--------+ + + + + | 08/21/ | Implant | Cardiology | Daljit Singletary, | Remote Device | | 2020 | Monitor | | MD [address] | Interrogation | | | | | [place], | (Primary Dx); | | | | | [place] [address] | Pacemaker; | | | | | [phone] | Sinoatrial node | | | | | | dysfunction (HCC) | | | | | | with symptomatic | | | | | | bradycardia | +--------+ + + + + | 08/21/ | Implant | Cardiology | Daljit Singletary, | Remote Device | 2019 | Monitor | | MD [address] [place] | Interrogation | | | | | [place], | (Primary Dx); | | | | | [place] [address] | Pacemaker; | | | | | [phone] | Sinoatrial node | | | | [...] | | | | | | [place] [address] | | | | | | [phone] | | | | | | | | +--------+ + + + + documented as of this encounter Visit Diagnoses Not on filedocumented in this encounter"
--- OUTSIDE RECORDS SUMMARY | ~2020-08-06 | XMS | Encounter Summary ---
Demographics + + + | Address | [address] | | | [place] [address] | + + + | Home Phone [...] Providers + +------+ + | Care Head Sawyer Automatic Name | Role | Phone | + +------+ + PCP | Unavailable | + +------+ + Encounter Details +--------+ + + + + | Date | Type | Department | Care Team | Description | +--------+ + + + + | 10/26/ | Hospital | [facility] | | | | 1994 | Encounter | MED CTR EMERGENCY | | | | | | CENTER [address] | | | | | | [place] | | | | | | [address] | | | | | | [phone] | | | +--------+ + + + [...] | Monitor | | MD [address] | Interrogation | | | | | [place], | (Primary Dx); | | | | | [place] [address] | Pacemaker; | | | | | [phone] | Sinoatrial node | | | | | | dysfunction (HCC) | | | | | | with symptomatic | | | | | | bradycardia | +--------+ + + + + | 08/21/ | Implant | Cardiology | Daljit Singletary, | Remote Device | | 2019 | Monitor | | MD [address] | Interrogation | | | | | [place], | (Primary Dx); | | | | | [place] [address] | Pacemaker; | | | | | [phone] | Sinoatrial node | | | | | | dysfunction (HCC) | | | | | | with symptomatic | | | | | | bradycardia | +--------+ + + + + | 08/21/ | Implant | Cardiology | Daljit Singletary, | Remote Device | | 2019 | Monitor | | MD [address] | Interrogation | | | | | [place], | (Primary Dx); | | | | | [place] [address] | Pacemaker; | | | | | [phone] | Sinoatrial node | | | | | | dysfunction (HCC) | | | | | | with symptomatic | | | | | | bradycardia | +--------+ + + + + | 08/21/ | Implant | Cardiology | Daljit Singletary, | Remote Device | | 2019 | Monitor | | MD [address] | Interrogation | | | | | [place], | (Primary Dx); | | | | | [place] [address] | Pacemaker; | | | | | [phone] | Sinoatrial node | | | | | | dysfunction (HCC) | | | | | | with symptomatic | | | | | | bradycardia | +--------+ + + + + | 08/21/ | Implant | Cardiology | Daljit Singletary, | Remote Device | | 2019 | Monitor | | MD [address] | Interrogation | | | | | [place], | (Primary Dx); | | | | | [place] [address] | Pacemaker; | | | | | [phone] | Sinoatrial node | | | | [...] | | | | | | [place] [address] | | | | | | [phone] | | | | | | | | +--------+ + + + + documented as of this encounter Visit Diagnoses Not on filedocumented in this encounter"
--- OUTSIDE RECORDS SUMMARY | ~2020-08-06 | XMS | Encounter Summary ---
Demographics + + + | Address | [address] | | | [place] [address] | + + + | Home Phone [...] Providers + +------+ + | Care Sales Associate Cashier Name | Role | Phone | + +------+ + PCP | Unavailable | + +------+ + Encounter Details +--------+ + + + + | Date | Type | Department | Care Team | Description | +--------+ + + + + | 09/13/ | Hospital | [facility] | Jonathan, | | | 2009 | Encounter | MED CTR EMERGENCY | Martell Cr MD [address] | | | | | [place] [address] | [address] | | | | | [place] | [place] [address] | | | | | [address] | [phone] | | | | | [phone] | | | +--------+ + + + [...] 2019 | Monitor | | [address] | Interrogation | | | | | [place], | (Primary Dx); | | | | | [place] [address] | Pacemaker; | | | | | [phone] | Sinoatrial node | | | | | | dysfunction (HCC) | | | | | | with symptomatic | | | | | | bradycardia | +--------+ + + + + | 08/21/ | Implant | Cardiology | Daljit Singletary, | Remote Device | | 2019 | Monitor | | MD [address] | Interrogation | | | | | [place], | (Primary Dx); | | | | | [place] [address] | Pacemaker; | | | | | [phone] | Sinoatrial node | | | | | | dysfunction (HCC) | | | | | | with symptomatic | | | | | | bradycardia | +--------+ + + + + | 08/21/ | Implant | Cardiology | Daljit Singletary, | Remote Device | | 2019 | Monitor | | MD [address] | Interrogation | | | | | [place], | (Primary Dx); | | | | | [place] [address] | Pacemaker; | | | | | [phone] | Sinoatrial node | | | | | | dysfunction (HCC) | | | | | | with symptomatic | | | | | | bradycardia | +--------+ + + + + | 08/21/ | Implant | Cardiology | Daljit Singletary | Remote Device | | 2019 | Monitor | | MD [address] | Interrogation | | | | | [place], | (Primary Dx); | | | | | [place] [address] | Pacemaker; | | | | | [phone] | Sinoatrial node | | | | | | dysfunction (HCC) | | | | | | with symptomatic | | | | | | bradycardia | +--------+ + + + + | 08/21/ | Implant | Cardiology | Daljit Singletary, | Remote Device | | 2020 | Monitor | | MD [address] [place] | Interrogation | | | | | [place], | (Primary Dx); | | | | | [place] [address] | Pacemaker; | | | | | [phone] | Sinoatrial node | | | | [...] | | | | | | [place] [address] | | | | | | [phone] | | | | | | | | +--------+ + + + + documented as of this encounter Visit Diagnoses Not on filedocumented in this encounter"
--- OUTSIDE RECORDS SUMMARY | ~2020-08-06 | XMS | Encounter Summary ---
Demographics + + + | Address | [address] | | | [place] [address] | + + + | Home Phone [...] Team Providers + +------+ + | Care Load Out Supervisor Name | Role | Phone | [...] + | 06/27/ | Telephone | [facility] | Michael Amanda, | ED Follow-up (s/p | | 2013 | | MEDICINE [place] | DO [address] | ATV zoey) | | | | [address] | [place] | | | | | [place] | [address] | | | | | [address] | | | | | | [phone] | | | +--------+ + + + [...] aneurysm may be enlarged, though CT at [facility] showed no changes. He is sending reports to [facility] ([place], [place]) for review by cardiac team there. [...] Interrogation | | | | | [place], | (Primary Dx); | | | | | [place] [address] | Pacemaker; | | | | | [phone] | Sinoatrial node | | | | | | dysfunction (HCC) | | | | | | with symptomatic | | | | | | bradycardia | +--------+ + + + + | 08/21/ | Implant | Cardiology | Daljit Singletary, | Remote Device | | 2019 | Monitor | | MD [address] [place] | Interrogation | | | | | [place], | (Primary Dx); | | | | | [place] [address] | Pacemaker; | | | | | [phone] | Sinoatrial node | | | | | | dysfunction (HCC) | | | | | | with symptomatic | | | | | | bradycardia | +--------+ + + + + | 08/21/ | Implant | Cardiology | Daljit Singletary, | Remote Device | | 2019 | Monitor | | MD [address] [place] | Interrogation | | | | | [place], | (Primary Dx); | | | | | [place] [address] | Pacemaker; | | | | | [phone] | Sinoatrial node | | | | | | dysfunction (HCC) | | | | | | with symptomatic | | | | | | bradycardia | +--------+ + + + + | 08/21/ | Implant | Cardiology | Daljit Singletary, | Remote Device | | 2019 | Monitor | | MD [address] [place] | Interrogation | | | | | [place], | (Primary Dx); | | | | | [place] [address] | Pacemaker; | | | | | [phone] | Sinoatrial node | | | | | | dysfunction (HCC) | | | | | | with symptomatic | | | | | | bradycardia | +--------+ + + + + | 08/21/ | Implant | Cardiology | Daljit Singletary, | Remote Device | | 2019 | Monitor | | MD [address] [place] | Interrogation | | | | | [place], | (Primary Dx); | | | | | [place] [address] | Pacemaker; | | | | | [phone] | Sinoatrial node | | | | [...] W | | | | | | [place], | | | | | | [place] [address] | | | | | | [phone] | | | | | | | | +--------+ + + + + documented as of this encounter Visit Diagnoses Not on filedocumented in this encounter
--- OUTSIDE RECORDS SUMMARY | ~2020-08-06 | XMS | Encounter Summary ---
Demographics + + + | Address | [address] | | | [place] [address] | + + + | Home Phone [...] Providers + +------+ + | Care Small Engine Specialist Name | Role | Phone [...] + + | 05/09/ | Emergency | [facility] | [place] | Functional diarrhea | | 2019 | | [facility] EM[facility] | DO Naresh [address] | (Primary Dx) | | | | CENTER [address] | [address] [facility] | | | | | [place], [place] | [place] [address] | | | | | [address] | [phone] | | | | | [phone] | | | +--------+ + + + [...] sent through Care Everywhere.Diarrhea, Unkno wn Cause (Upper Sorbian)documented in this encounter Medications at Time of [...] + + + +---------+ + + | Stay[place]-3 Fatty | CAPS, one capsule by | [...] | | | | | | | cahto coronary | | | | | | | artery of cahto | | | | | | | [...] might be differ ent from the original. [facility] Moe Sanchez Emergency Department Encounter Note [address] [place] [address] PCP:Kirk French MD [phone] History ED Triage Notes, ED Triage Notes Marty Ramirez, [place] 05/09/2019 14:46 Pt reports had 23 stools yesterday. States he has had chronic diarrhea for years. Reports that he was told by dr Deal he most likely had chronic IBS. Unable to get office visit so wilmer bruce to ED. CC: Abdominal Pain HPI: Moe [...] wasn't treated. 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; Dagne [employer] Peptic ulcer disease Premature ventricular contraction Preventative [...] ABLATION Bilateral 04/03/2013 x3 Laser APPENDECTOMY 2004 [facility] CARDIAC CATHERIZATION 12/25/13 Left CARDIAC CATHERIZATION N/A 01/25/2019 Procedure: CV LHC; Surgeon: Daljit Singletary MD; Location: [facility] CV LAB CARDIAC CATHERIZATION N/A 01/25/2019 Procedure: CV Cor Angio; Surgeon: Daljit Singletary MD; Location: [facility] CV LAB COLONOSCOPY N/A 12/24/2017 Procedure: COLONOSCOPY; Surgeon: Emmanuel Daniel MD; Location: [facility] MEDICAL PROCEDURE UNIT COLONOSCOPY N/A 01/05/2019 Procedure: COLONOSCOPY; Surgeon: Emmanuel Daniel MD; Location: [facility] MEDICAL PROCEDURE UNIT EGD 12/24/2017 HARDWARE [...] Surgeon: Emmanuel Daniel MD; Location: [facility] MEDICAL PROCEDURE UNIT UPPER GASTROINTESTINAL ENDOSCOPY N/A 01/05/2019 Procedure: EGD; Surgeon: Emmanuel Daniel MD; Location: [facility] MEDICAL PROCEDURE UNIT URETEROSCOPY Left 04/13/2019 Procedure: Cystoscopy, Left ureteroscopy with laser lithotripsy, Left ureteral stent place ment; Surgeon: Matthew Uriarte MD; Location: [facility] MAIN OR VASECTOMY Medications: EMBALMER/FUNERAL DIRECTOR Home Medications Medication Sig amLODIPine (NORVASC) 5 [...] NO RELIEF AFTER 3RD DOSE, CALL 911 Stay[place]-3 Fatty Acids (SALMON OIL-1000 PO) CAPS, one [...] Medical Decision Making as of May 19 454 Tue May 09, 2019 1653 WBC: 6.5 1653 [...] INGUINAL HERNIAS. 1729 CRP, High Sensitive: 1.11 Fri May 19, 2019 0453 Patient's work-up is unremarkable. [...] Deal he most likely had chronic IBS. Unab le to get office visit so came [...] Interrogation | | | | | [facility]. [place], | (Primary Dx); | | | | | [place] [address] | Pacemaker; | | | | | [phone] | Sinoatrial node | | | | | | dysfunction (HCC) | | | | | | with symptomatic | | | | | | bradycardia | +--------+ + + + + | 08/21/ | Implant | Cardiology | Daljit Singletary, | Remote Device | | 2019 | Monitor | | MD [address] | Interrogation | | | | | [facility] [place], | (Primary Dx); | | | | | [place] [address] | Pacemaker; | | | | | [phone] | Sinoatrial node | | | | | | dysfunction (HCC) | | | | | | with symptomatic | | | | | | bradycardia | +--------+ + + + + | 08/21/ | Implant | Cardiology | Daljit Singletary, | Remote Device | | 2019 | Monitor | | MD [address] | Interrogation | | | | | [place], | (Primary Dx); | | | | | [place] [address] | Pacemaker; | | | | | [phone] | Sinoatrial node | | | | | | dysfunction (HCC) | | | | | | with symptomatic | | | | | | bradycardia | +--------+ + + + + | 08/21/ | Implant | Cardiology | Daljit Singletary, | Remote Device | | 2019 | Monitor | | MD [address] | Interrogation | | | | | [place], | (Primary Dx); | | | | | [place] [address] | Pacemaker; | | | | | [phone] | Sinoatrial node | | | | | | dysfunction (HCC) | | | | | | with symptomatic | | | | | | bradycardia | +--------+ + + + + | 08/21/ | Implant | Cardiology | Daljit Singletary, | Remote Device | | 2019 | Monitor | | [address] | Interrogation | | | | | [place], | (Primary Dx); | | | | | [place] [address] | Pacemaker; | | | | | [phone] | Sinoatrial node | | | | [...] | | | | | | [place] [address] | | | | | | [phone] | | | | | | | [...] W?MRN: | | | | | | [id number] | | | [id number] | | | riteri | | | [...] | | | St. | | | [place] | | | y | | | [...] | | | St. | | | [place] | | | y | | | [...] | | | St. | | | [place] | | | y H. | | [...] | | | St. | | | [place] | | | y H. | | [...] | | | M.D. | | | Charge Machine Operator | | | al | | [...] | | | ent/60 | | | [id number] | | | [id number] | | | [...] [address] | [place] | [phone] | | [facility] | | [address] | | | - LABORATORY | | [...] [address] | [place] | [phone] | | [facility] | | [address] | | | - LABORATORY | | [...] + | [facility] | [address] | [place] | [phone] | | [facility] | | [address] | | | - LABORATORY | | [...] | | | Sensitive | | | [facility] | | | | | [...] [address] | [place] | [phone] | | [facility] | | [address] | | | - LABORATORY | | [...] [address] | [place] | [phone] | | [facility] | | [address] | | | - LABORATORY | | [...] 86 | 60 - 106 mg/dL | [facility] | | | | | | [facility] | | | | | | MEDICAL | | | | | | CENTER - | | | | | | LABORATORY | | + + + + + + | BUN | 10 | 9 - 23 mg/dL | [facility] | | | | | | [facility] | | | | | | MEDICAL | | | | | | CENTER - | | | | | | LABORATORY | | + + + + + + | Creatinine | 0.96 | 0.70 - 1.30 | [facility] | | | | | mg/dL | [facility] | | | | | | MEDICAL | | | | | | CENTER - | | | | | | LABORATORY | | + + + + + + | eGFR, | >60Comment: GLOMERULAR | >=60 | [facility] | | | non- | FILTRATION | mL/min/1.73m2 | [facility] | | | Mauritian | RATE,ESTIMATED | | MEDICAL | | | | mL/min/1.93j7Rpnl than | | CENTER - | | [...] [address] | [place] | [phone] | | [facility] | | [address] | | | - LABORATORY | | [...] | | Lymphocytes | | K/uL | [place] | | [...] | 0.00 | 0.00 - 0.01 | [facility] | | | nRBC | | K/uL [...] [address] | [place] | [phone] | | [facility] | | [address] | | | - LABORATORY | | [...] - 1.030 | [facility] | | | [place], | | | [facility] | | [...] ST. | [address] | [place] | [phone] | | [facility] | | [address] | | | - LABORATORY | | | | + + + + + documented in this encounter Visit Diagnoses + + | Diagnosis | + + | Functional diarrhea - Primary | + + | Remote [...]
--- OUTSIDE RECORDS SUMMARY | ~2020-08-06 | XMS | Encounter Summary ---
Demographics + + + | Address | [address] | | | [place] [address] | + + + | Home Phone [...] Providers + +------+ + | Care Shrimp Peeler Name | Role | Phone | [...] Provider Unknown | | | | | [place], [place] | [phone] | | | | | [address] | | | | | | [phone] | | | +--------+ + + + [...] + + + +---------+ + + | [place]-3 Fatty | CAPS, one capsule by | [...] Dx); | | | | | [place] [address] | Pacemaker; | | | | | [phone] | Sinoatrial node | | | | | | dysfunction (HCC) | | | | | | with symptomatic | | | | | | bradycardia | +--------+ + + + + | 08/21/ | Implant | Cardiology | Daljit Singletary, | Remote Device | | 2019 | Monitor | | MD [address] | Interrogation | | | | | [place], | (Primary Dx); | | | | | [place] [address] | Pacemaker; | | | | | [phone] | Sinoatrial node | | | | | | dysfunction (HCC) | | | | | | with symptomatic | | | | | | bradycardia | +--------+ + + + + | 08/21/ | Implant | Cardiology | Daljit Singletary, | Remote Device | | 2019 | Monitor | | MD [address] | Interrogation | | | | | [place], | (Primary Dx); | | | | | [place] [address] | Pacemaker; | | | | | [phone] | Sinoatrial node | | | | | | dysfunction (HCC) | | | | | | with symptomatic | | | | | | bradycardia | +--------+ + + + + | 08/21/ | Implant | Cardiology | Daljit Singletary, | Remote Device | | 2020 | Monitor | | MD [address] | Interrogation | | | | | [place], | (Primary Dx); | | | | | [place] [address] | Pacemaker; | | | | | [phone] | Sinoatrial node | | | | | | dysfunction (HCC) | | | | | | with symptomatic | | | | | | bradycardia | +--------+ + + + + | 08/21/ | Implant | Cardiology | Daljit Singletary, | Remote Device | | 2020 | Monitor | | MD [address] | Interrogation | | | | | [place], | (Primary Dx); | | | | | [place] [address] | Pacemaker; | | | | | [phone] | Sinoatrial node | | | | [...] | | | | | | [place] [address] | | | | | | [phone] | | | | | | | [...]
--- OUTSIDE RECORDS SUMMARY | ~2020-08-06 | XMS | Encounter Summary ---
Demographics + + + | Address | [address] | | | [place] [address] | + + + | Home Phone [...] Providers + +------+ + | Care Net Developer Architect Name | Role | Phone | [...] + | 01/02/ | Telephone | [facility] | Gemini Rashadotto, | Other (chest pain) | | 2019 | | CARDIOLOGY [address] | MD [address] | | | | | [place], | [place], | | | | | [place] [address] | [place] [address] | | | | | [phone] | [phone] | | | | | | | [...] evaluated. He re fused to go to [facility], will come to [facility]. He stated he would drive himself. I ca utioned him not too. He refused and will come to [facility] ..................................... .....Mariana Valentine RN on 01/02/19 at 16:55 documented in thi s encounter Plan of Treatment +--------+ + + + + | Date | Type | Specialty | Care Team | Description | +--------+ + + + + | 08/21/ | Implant | Cardiology | Daljit Singletary, | Remote Device | | 2019 | Monitor | | MD [address] | Interrogation | | | | | [place], | (Primary Dx); | | | | | [place] [address] | Pacemaker; | | | | | [phone] | Sinoatrial node | | | | | | dysfunction (HCC) | | | | | | with symptomatic | | | | | | bradycardia | +--------+ + + + + | 08/21/ | Implant | Cardiology | Daljit Singletary, | Remote Device | | 2019 | Monitor | | MD [address] | Interrogation | | | | | [place], | (Primary Dx); | | | | | [place] [address] | Pacemaker; | | | | | [phone] | Sinoatrial node | | | | | | dysfunction (HCC) | | | | | | with symptomatic | | | | | | bradycardia | +--------+ + + + + | 08/21/ | Implant | Cardiology | Daljit Singletary, | Remote Device | | 2019 | Monitor | | MD [address] | Interrogation | | | | | [place], | (Primary Dx); | | | | | [place] [address] | Pacemaker; | | | | | [phone] | Sinoatrial node | | | | | | dysfunction (HCC) | | | | | | with symptomatic | | | | | | bradycardia | +--------+ + + + + | 08/21/ | Implant | Cardiology | Daljit Singletary, | Remote Device | | 2019 | Monitor | | MD [address] | Interrogation | | | | | [place], | (Primary Dx); | | | | | [place] [address] | Pacemaker; | | | | | [phone] | Sinoatrial node | | | | | | dysfunction (HCC) | | | | | | with symptomatic | | | | | | bradycardia | +--------+ + + + + | 08/21/ | Implant | Cardiology | Daljit Singletary, | Remote Device | | 2020 | Monitor | | MD [address] | Interrogation | | | | | [place], | (Primary Dx); | | | | | [place] [address] | Pacemaker; | | | | | [phone] | Sinoatrial node | | | | [...] | | | | | | [place] [address] | | | | | | [phone] | | | | | | | | +--------+ + + + + documented as of this encounter Visit Diagnoses Not on filedocumented in this encounter"
--- OUTSIDE RECORDS SUMMARY | ~2020-08-06 | XMS | Encounter Summary ---
Demographics + + + | Address | [address] [place] [address] [address] | | | [place] [address] | + + + | Home Phone [...] [place] | | | | | [address] | | + + + + + Care Team Providers + +------+ + | Care Financial Investment Manager Name | Role | Phone | [...] | | | | | Unintentiona | [address] | | | | | | l weight | Ave | | | | | | loss | [facility] [place] | | | | | | Abdominal | [address] | | | | | | cramping | Phone: | | | | | | Chronic | [phone] | | | | | | diarrhea | Fax: | | | | | | Rectal | [phone] | | | | | | bleeding [...] | 2019 | | Center at [facility] [address] | MD [address] | | | | | [address] | [place], [place] | | | | | for [facility] and | [address] | | | | | [facility] | [phone] | | | | | [place], [place] | | | | | | [address] | | | | | | [phone] | | | +--------+ + + + [...] a different local practice. Will look into [facility] for referrals.Electronically signed by Allyson Diehl [...] Said he called Dr. Deal's office in [facility], canceled his appt to swallow camera becau [...] will further consider, and reconsider coming to [facility] for testing as well. Asked him to call back to let us know. elephone Encounter - Malik Alvares RN - 12/20/2019 1:[address] Rios's recommendations with the pt. Pt declined co jaye to [facility] for colonoscopy and capsule study because it [...] and asked how he can establish care. [address] [address] I spoke with a staff member and [...] routed. 2:1 7 PM PSTTelephone Encounter - Netat Alexander - 12/20/2019 10:56 AM PSTPATIENT LEFT [...]
--- OUTSIDE RECORDS SUMMARY | ~2020-08-06 | XMS | Encounter Summary ---
Demographics + + + | Address | [address] | | | [place] [address] | + + + | Home Phone [...] Providers + +------+ + | Care Application Technical Designer Name | Role | Phone | [...] Eva ROUSE | | | | | [place], [place] | [address] | | | | | [address] | [place] [address] | | | | | [phone] | [phone] | | | | | | | [...] | Monitor | | MD [address] | Interrogation | | | | | [place], | (Primary Dx); | | | | | [place] [address] | Pacemaker; | | | | | [phone] | Sinoatrial node | | | | | | dysfunction (HCC) | | | | | | with symptomatic | | | | | | bradycardia | +--------+ + + + + | 08/21/ | Implant | Cardiology | Daljit Singletary, | Remote Device | | 2020 | Monitor | | MD [address] | Interrogation | | | | | [facility], | (Primary Dx); | | | | | [place] [address] | Pacemaker; | | | | | [phone] | Sinoatrial node | | | | | | dysfunction (HCC) | | | | | | with symptomatic | | | | | | bradycardia | +--------+ + + + + | 08/21/ | Implant | Cardiology | Daljit Singletary, | Remote Device | | 2019 | Monitor | | MD [address] | Interrogation | | | | | [place], | (Primary Dx); | | | | | [place] [address] | Pacemaker; | | | | | [phone] | Sinoatrial node | | | | | | dysfunction (HCC) | | | | | | with symptomatic | | | | | | bradycardia | +--------+ + + + + | 08/21/ | Implant | Cardiology | Daljit Singletary, | Remote Device | | 2019 | Monitor | | MD [address] | Interrogation | | | | | [facility], | (Primary Dx); | | | | | [place] [address] | Pacemaker; | | | | | [phone] | Sinoatrial node | | | | | | dysfunction (HCC) | | | | | | with symptomatic | | | | | | bradycardia | +--------+ + + + + | 08/21/ | Implant | Cardiology | Daljit Singletary, | Remote Device | | 2019 | Monitor | | MD [address] | Interrogation | | | | | [place], | (Primary Dx); | | | | | [place] [address] | Pacemaker; | | | | | [phone] | Sinoatrial node | | | | [...] W | | | | | | [address] [place], | | | | | | [place] [address] | | | | | | [phone] | | | | | | | [...] | | | Basophils | performed at [facility];[address] | 10*3/uL | LAB | | | | [address] | | | | | | [address];[place] [address] | | | | + + + [...] EXTERNAL | | | | performed at [facility];[address] | u[iU]/mL | LAB | | | | [address] | | | | | | [address];[place] [address] | | | | + + + [...] | | | | | | at TCL;[address] | | | | | | [place] | | | | | | [address] | | | | + + + [...]
--- OUTSIDE RECORDS SUMMARY | ~2020-08-06 | XMS | Encounter Summary ---
Demographics + + + | Address | [address] | | | [place] [address] | + + + | Home Phone [...] + +------+ + | Care Director Of Early Childhood Name | Role | Phone | + [...] | 06/26/ | Telephone | [facility] | Jacek Holm, | Results | | 2012 | | [facility]IC[facility] [place] | [address] | | | | | [address] | [place] | | | | | [place], [place] | [address] | | | | | [address] | | | | | | [phone] | | | +--------+ + + + [...] Dx); | | | | | [place] [address] | Pacemaker; | | | | | [phone] | Sinoatrial node | | | | | | dysfunction (HCC) | | | | | | with symptomatic | | | | | | bradycardia | +--------+ + + + + | 08/21/ | Implant | Cardiology | Daljit Singletary, | Remote Device | | 2019 | Monitor | | MD [address] | Interrogation | | | | | [place], | (Primary Dx); | | | | | [place] [address] | Pacemaker; | | | | | [phone] | Sinoatrial node | | | | | | dysfunction (HCC) | | | | | | with symptomatic | | | | | | bradycardia | +--------+ + + + + | 08/21/ | Implant | Cardiology | Daljit Singletary, | Remote Device | | 2019 | Monitor | | MD [address] | Interrogation | | | | | [place], | (Primary Dx); | | | | | [place] [address] | Pacemaker; | | | | | [phone] | Sinoatrial node | | | | | | dysfunction (HCC) | | | | | | with symptomatic | | | | | | bradycardia | +--------+ + + + + | 08/21/ | Implant | Cardiology | Daljit Singletary, | Remote Device | | 2020 | Monitor | | MD [address] | Interrogation | | | | | [place], | (Primary Dx); | | | | | [place] [address] | Pacemaker; | | | | | [phone] | Sinoatrial node | | | | | | dysfunction (HCC) | | | | | | with symptomatic | | | | | | bradycardia | +--------+ + + + + | 08/21/ | Implant | Cardiology | Daljit Singletary, | Remote Device | 2019 | Monitor | | [address] | Interrogation | | | | | [place], | (Primary Dx); | | | | | [place] [address] | Pacemaker; | | | | | [phone] | Sinoatrial node | | | | [...] W | | | | | | [place], | | | | | | [place] [address] | | | | | | [phone] | | | | | | | | +--------+ + + + + documented as of this encounter Visit Diagnoses Not on filedocumented in this encounter"
--- OUTSIDE RECORDS SUMMARY | ~2020-08-06 | XMS | Encounter Summary ---
Demographics + + + | Address | [address] | | | [place] [address] | + + + | Home Phone [...] Providers + +------+ + | Care Tool Keeper Name | Role | Phone | [...] + | 03/08/ | Telephone | [facility] | SunshinecherelleDaljit, | Other (Pacemaker | | 2013 | | CARDIOLOGY [address] | MD [address] | card ) | | | | [place], | [place], | | | | | [place] [address] | [place] [address] | | | | | [phone] | [phone] | | | | | | | [...] Dx); | | | | | [place] [address] | Pacemaker; | | | | | [phone] | Sinoatrial node | | | | | | dysfunction (HCC) | | | | | | with symptomatic | | | | | | bradycardia | +--------+ + + + + | 08/21/ | Implant | Cardiology | Daljit Singletary, | Remote Device | | 2019 | Monitor | | MD [address] | Interrogation | | | | | [place], | (Primary Dx); | | | | | [place] [address] | Pacemaker; | | | | | [phone] | Sinoatrial node | | | | | | dysfunction (HCC) | | | | | | with symptomatic | | | | | | bradycardia | +--------+ + + + + | 08/21/ | Implant | Cardiology | Daljit Singletary, | Remote Device | | 2019 | Monitor | | MD [address] | Interrogation | | | | | [place], | (Primary Dx); | | | | | [place] [address] | Pacemaker; | | | | | [phone] | Sinoatrial node | | | | | | dysfunction (HCC) | | | | | | with symptomatic | | | | | | bradycardia | +--------+ + + + + | 08/21/ | Implant | Cardiology | SunshineDaljit villarreal, | Remote Device | | 2020 | Monitor | | MD [address] [place] | Interrogation | | | | | [place], | (Primary Dx); | | | | | [place] [address] | Pacemaker; | | | | | [phone] | Sinoatrial node | | | | | | dysfunction (HCC) | | | | | | with symptomatic | | | | | | bradycardia | +--------+ + + + + | 08/21/ | Implant | Cardiology | Daljit Singletary, | Remote Device | | 2019 | Monitor | | MD [address] [place] | Interrogation | | | | | [place], | (Primary Dx); | | | | | [place] [address] | Pacemaker; | | | | | [phone] | Sinoatrial node | | | | [...] | | | | | | [place] [address] | | | | | | [phone] | | | | | | | | +--------+ + + + + documented as of this encounter Visit Diagnoses Not on filedocumented in this encounter"
--- OUTSIDE RECORDS SUMMARY | ~2020-08-06 | XMS | Encounter Summary ---
Demographics + + + | Address | [address] | | | [place] [address] | + + + | Home Phone [...] + + + + | 10/09/ | Hospital | [facility] | Jonathan, | | | 2008 | Encounter | [facility] | Martell Cr MD [address] | | | | | [place] [address] | [address] | | | | | [place] | [place] [address] | | | | | [address] | [phone] | | | | | [phone] | | | +--------+ + + + [...] 2019 | Monitor | | [address] | Interrogation | | | | | [place], | (Primary Dx); | | | | | [place] [address] | Pacemaker; | | | | | [phone] | Sinoatrial node | | | | | | dysfunction (HCC) | | | | | | with symptomatic | | | | | | bradycardia | +--------+ + + + + | 08/21/ | Implant | Cardiology | Daljit Singletary, | Remote Device | | 2019 | Monitor | | MD [address] | Interrogation | | | | | [place], | (Primary Dx); | | | | | [place] [address] | Pacemaker; | | | | | [phone] | Sinoatrial node | | | | | | dysfunction (HCC) | | | | | | with symptomatic | | | | | | bradycardia | +--------+ + + + + | 08/21/ | Implant | Cardiology | Daljit Singletary, | Remote Device | | 2019 | Monitor | | MD [address] | Interrogation | | | | | [place], | (Primary Dx); | | | | | [place] [address] | Pacemaker; | | | | | [phone] | Sinoatrial node | | | | | | dysfunction (HCC) | | | | | | with symptomatic | | | | | | bradycardia | +--------+ + + + + | 08/21/ | Implant | Cardiology | Daljit Singletary | Remote Device | | 2019 | Monitor | | MD [address] | Interrogation | | | | | [place], | (Primary Dx); | | | | | [place] [address] | Pacemaker; | | | | | [phone] | Sinoatrial node | | | | | | dysfunction (HCC) | | | | | | with symptomatic | | | | | | bradycardia | +--------+ + + + + | 08/21/ | Implant | Cardiology | Daljit Singletary, | Remote Device | | 2020 | Monitor | | MD [address] | Interrogation | | | | | [place], | (Primary Dx); | | | | | [place] [address] | Pacemaker; | | | | | [phone] | Sinoatrial node | | | | [...] | | | | | | [place] [address] | | | | | | [phone] | | | | | | | | +--------+ + + + + documented as of this encounter Visit Diagnoses Not on filedocumented in this encounter"
--- OUTSIDE RECORDS SUMMARY | ~2020-08-06 | XMS | Encounter Summary ---
Demographics + + + | Address | [address] | | | [place] [address] | + + + | Home Phone [...] Providers + +------+ + | Care Vending Stand Supervisor Name | Role | Phone | [...] | Ascending | [place], | [address] | | | | | aortic | ALISA VernonP | [place], | | | | | aneurysm | [address] | [place] | | | | | ([facility]ERLY [facility]) | [address] | [address] | | | | | Procedures | [place], | Phone: | | | | | ECHO | [place] | [phone] | | | | | Complete | [address] | Fax: | | | | | | Phone: | [phone] | | | | | | [phone] | | | | | | | Fax: | | | | | | | [phone] | | +--------+--------+ + + + + [...] | | | | | Ascending | [place], | [address] | | | | | aortic | ALISA VernonP | [place], | | | | | aneurysm | [address] | [place] | | | | | ([facility]ERLY [facility]) | [place] | [address] | | | | | Procedures | [place], | Phone: | | | | | ECHO | [place] | [phone] | | | | | Complete | [address] | Fax: | | | | | | Phone: | [phone] | | | | | | [phone] | | | | | | | Fax: | | | | | | | [phone] | | +--------+--------+ + + + + Encounter Details +--------+ + + + + | Date | Type | Department | Care Team | Description | +--------+ + + + + | 05/01/ | Hospital | [facility] | [place], | Ascending thoracic | | 2020 | Encounter | MED CTR ECHO [address] | Janeen, DRUM WORKER [address] | aortic aneurysm | | | | [place] | [place], | (FORMERLY [facility]); Ascending | | | | [place] [address] | [place] [address] | aortic aneurysm | | | | [phone] | [phone] | (FORMERLY [facility]) | | | | | | | [...] | | | | | | | kletsel dehe wintun coronary | | | | | | | artery of kletsel dehe wintun | | | | | | | [...] + + + +---------+ + + | [place]-3 Fatty | CAPS, one capsule by | [...] | 0 | | | | | | | | | 0 | + + + +---------+ + + | cyclobenzaprine | | | 0 | 07/28/20 | | | (FLEXERIL) 10 mg | | | | 19 | 0 [...] 4 hours | | | 20 | 0 | | tablet | if needed for [...] oxyCODONE-acetaminop | | | | 20 | 0 | | hen (PERCOCET) 5-325 | | | | | | | mg per tablet | | | | | | + + + +---------+ + + | | Use up to tid prn | 57 g | 3 | 01/11/20 | | | pramoxine-hydrocorti | | | | 20 | 0 | | ramon devlin | | | | | | + + + +---------+ + + | PYRIDOXINE HCL PO | Take by mouth. | | 0 | | | | | | | | | 0 | + + + +---------+ [...] | 180 | 0 | 01/23/20 | 09/01/202 | | (VALTREX) 1 g tablet | MOUTH TWICE A DAY | tablet | | 20 | 0 | + + + +---------+ [...] Interrogation | | | | | [facility] [place], | (Primary Dx); | | | | | [place] [address] | Pacemaker; | | | | | [phone] | Sinoatrial node | | | | | | dysfunction ([facility]) | | | | | | with symptomatic | | | | | | bradycardia | +--------+ + + + + | 08/21/ | Implant | Cardiology | Gemini, Suwong, | Remote Device | | 2020 | Monitor | | MD [address] | Interrogation | | | | | [place], | (Primary Dx); | | | | | [place] [address] | Pacemaker; | | | | | [phone] | Sinoatrial node | | | | | | dysfunction (HCC) | | | | | | with symptomatic | | | | | | bradycardia | +--------+ + + + + | 08/21/ | Implant | Cardiology | Daljit Singletary, | Remote Device | | 2019 | Monitor | | MD [address] | Interrogation | | | | | [place], | (Primary Dx); | | | | | [place] [address] | Pacemaker; | | | | | [phone] | Sinoatrial node | | | | | | dysfunction (HCC) | | | | | | with symptomatic | | | | | | bradycardia | +--------+ + + + + | 08/21/ | Implant | Cardiology | Daljit Singletary, | Remote Device | | 2020 | Monitor | | MD [address] | Interrogation | | | | | [facility], | (Primary Dx); | | | | | [place] [address] | Pacemaker; | | | | | [phone] | Sinoatrial node | | | | | | dysfunction (HCC) | | | | | | with symptomatic | | | | | | bradycardia | +--------+ + + + + | 08/21/ | Implant | Cardiology | Daljit Singletary, | Remote Device | 2019 | Monitor | | [address] | Interrogation | | | | | [facility], | (Primary Dx); | | | | | [place] [address] | Pacemaker; | | | | | [phone] | Sinoatrial node | | | | [...] W | | | | | | [place], | | | | | | [place] [address] | | | | | | [phone] | | | | | | | [...] | | | | | | n [place] | | | | | + +--------+ [...]
--- OUTSIDE RECORDS SUMMARY | ~2020-08-06 | XMS | Encounter Summary ---
Demographics + + + | Address | [address] | | | [place] [address] | + + + | Home Phone [...] Team Providers + +------+ + | Care Blue Leather Sorter Name | Role | Phone [...] | RN | | | | | [place], | | | | | | [place] [address] | | | | | | [phone] | | | +--------+ + + + [...] | Monitor | | MD [address] [place] | Interrogation | | | | | [place], | (Primary Dx); | | | | | [place] [address] | Pacemaker; | | | | | [phone] | Sinoatrial node | | | | | | dysfunction (HCC) | | | | | | with symptomatic | | | | | | bradycardia | +--------+ + + + + | 08/21/ | Implant | Cardiology | Daljit Singletary, | Remote Device | | 2019 | Monitor | | MD [address] [place] | Interrogation | | | | | [place], | (Primary Dx); | | | | | [place] [address] | Pacemaker; | | | | | [phone] | Sinoatrial node | | | | | | dysfunction (HCC) | | | | | | with symptomatic | | | | | | bradycardia | +--------+ + + + + | 08/21/ | Implant | Cardiology | Daljit Singletary, | Remote Device | | 2020 | Monitor | | MD [address] [place] | Interrogation | | | | | [place], | (Primary Dx); | | | | | [place] [address] | Pacemaker; | | | | | [phone] | Sinoatrial node | | | | | | dysfunction (HCC) | | | | | | with symptomatic | | | | | | bradycardia | +--------+ + + + + | 08/21/ | Implant | Cardiology | Daljit Singletary, | Remote Device | | 2019 | Monitor | | MD [address] [place] | Interrogation | | | | | [place], | (Primary Dx); | | | | | [place] [address] | Pacemaker; | | | | | [phone] | Sinoatrial node | | | | | | dysfunction (HCC) | | | | | | with symptomatic | | | | | | bradycardia | +--------+ + + + + | 08/21/ | Implant | Cardiology | Daljit Singletary, | Remote Device | | 2019 | Monitor | | MD [address] [place] | Interrogation | | | | | [place], | (Primary Dx); | | | | | [place] [address] | Pacemaker; | | | | | [phone] | Sinoatrial node | | | | [...] | | | | | | [place] [address] | | | | | | [phone] | | | | | | | | +--------+ + + + + documented as of this encounter Visit Diagnoses Not on filedocumented in this encounter"
--- OUTSIDE RECORDS SUMMARY | ~2020-08-06 | XMS | Encounter Summary ---
Demographics + + + | Address | [address] | | | [place] [address] | + + + | Home Phone [...] Providers + +------+ + | Care Cover Creaser Name | Role | Phone | [...] + + | 08/17/ | Office | [facility] | Michael Amanda, | Testosterone | | 2012 | Visit | [facility] [place] | DO [address] | deficiency (Primary | | | | [address] | [place] | Dx); Hypoglycemia; | | | | [place] | [address] | Her[place] | | | | [address] | | | | | | [phone] | | | +--------+---------+ + + + [...] lowering his testosterone levels. He seen at [facility]. He was prescribed OxyContin and Dilaudid. The [...] erectile dy sfunction. He was seen at [facility] yesterday and they prescribed him testostero ne cypionate injections. He's not sure when they wanted him to come back for labs. He has a followup appointment with [facility] in one month. Patient complains of history [...] HTN (hypertension); Hypercholesterolemia; Bipolar 1 disorder; Insomnia; Credit Associate jennifer neck pain; Depression; Hyperlipidemia; BIPOLAR DISORDER [...] per orders. This note is dictated using [employer] voice recognition software. This note was [...] Interrogation | | | | | [place], | (Primary Dx); | | | | | [place] [address] | Pacemaker; | | | | | [phone] | Sinoatrial node | | | | | | dysfunction (HCC) | | | | | | with symptomatic | | | | | | bradycardia | +--------+ + + + + | 08/21/ | Implant | Cardiology | Daljit Singletary, | Remote Device | | 2019 | Monitor | | MD [address] | Interrogation | | | | | [place], | (Primary Dx); | | | | | [place] [address] | Pacemaker; | | | | | [phone] | Sinoatrial node | | | | | | dysfunction (HCC) | | | | | | with symptomatic | | | | | | bradycardia | +--------+ + + + + | 08/21/ | Implant | Cardiology | Daljit Singletary, | Remote Device | | 2019 | Monitor | | MD [address] | Interrogation | | | | | [place], | (Primary Dx); | | | | | [place] [address] | Pacemaker; | | | | | [phone] | Sinoatrial node | | | | | | dysfunction ([facility]) | | | | | | with symptomatic | | | | | | bradycardia | +--------+ + + + + | 08/21/ | Implant | Cardiology | Daljit Singletayr, | Remote Device | | 2019 | Monitor | | MD [address] | Interrogation | | | | | [place], | (Primary Dx); | | | | | [place] [address] | Pacemaker; | | | | | [phone] | Sinoatrial node | | | | | | dysfunction (HCC) | | | | | | with symptomatic | | | | | | bradycardia | +--------+ + + + + | 08/21/ | Implant | Cardiology | Daljit Singletary, | Remote Device | 2019 | Monitor | | [address] | Interrogation | | | | | [place], | (Primary Dx); | | | | | [place] [address] | Pacemaker; | | | | | [phone] | Sinoatrial node | | | | [...] W | | | | | | [place], | | | | | | [place] [address] | | | | | | [phone] | | | | | | | | +--------+ + + + + documented as of this encounter Visit Diagnoses + + | Diagnosis | + + | Testosterone deficiency - Primary Other testicular hypofunction | + + | Hypoglycemia Hypoglycemia, unspecified | + + | Herpes Herpes simplex without mention of complication | + + | Remote Device Interrogation [...]
--- OUTSIDE RECORDS SUMMARY | ~2020-08-06 | XMS | Encounter Summary ---
Demographics + + + | Address | [address] [place] [address] [address] | | | [place] [address] | + + + | Home Phone [...] [place] | | | | | [address] | | + + + + + Care Team Providers + +------+ + | Care Sighter Name | Role | Phone | + [...] Chest pain | Farooq Almaguer, | [address] | | | | | Bradycardia | DO [address] | | | | | Procedures | Yao Booth | [facility] | | | | | | [facility] | Health and | | | | | TRANSTHORACI | [facility] [place] | Healing, | | | | | C | [address] | [address] | | | | | ECHOCARDIOGR | Phone: | [place], [place] | | | | | AM, ADULT | [phone] | [address] | | | | | | Fax: | Phone: | | | | | | [phone] | [phone] | +--------+--------+ + + + + Reason [...] | | | | | | | [place] [address] | | | | | | | Phone: | | | | | | | [phone] | | | | | | | Fax: | | | | | | | [phone] | | +--------+--------+ + + + + Encounter Details +--------+---------+ + + + | Date | Type | Department | Care Team | Description | +--------+---------+ + + + | 02/03/ | Office | Cardiology General | Arlette Drew, | Chest pain (Primary | | 2010 | Visit | at [facility] [address] | MD | Dx); Bradycardia; | | | | [facility] | | Pacemaker | | | | [facility] and Healing, | | | | | | Building | | | | | | [place], [place] | | | | | | [address] | | | | | | [phone] | | | +--------+---------+ + + + [...] per Dr. Drew's note. Farooq Jamil DO Picked Edge Sewing Machine Operator Clinical dovetailer/ Division of Cardiovascular Medicine Yajaira Borges, [place] - 02/09/2011 12:59 PM PDT PACEMAKER HISTORY Primary Care Provider: Darion Holden DO Horticultural Worker: Arlette Drew MD Moe Sanchez is a [...] chamber permanent pacemaker implantation on 06[place]/09 [place], Chronic smoker, mild DIDIER, bip olar disorder with anxiety who presents for second opinion regarding his syncopal episodes. Pt. started noticing dizzy spells and episodes of syncope about 3 years ago , pacemaker was put at the recommendation of Horticultural Worker Dr. Singleatry from [place]. [place]. Pt. states lala bhatti was put>1 [...] form tilt table testing but NA at [facility] May need to involve endocrine [...] physici bob DREW MD CARDIOLOGY - GENERAL [facility] Mailcode: Ch9a [facility], 9th [facility] [address] documented in this en counter Miscellaneous [...] + + + | [facility] ([facility] [address] [facility]) | [facility] | | [facility] [place] [address] | REGIONAL | | [place] [address] | LABORATORY | + + + + + + + + | Performing | Address | City/State/Zipcode | Phone Number | | Organization | | | | + + + + + | [facility] | [address] | [place] [address] | | | LABORATORY | | | [...] [facility] ([address] [facility]) | | | [facility] [place] [address] | | | [place] [address] | | + + + + + + + + | Performing | Address | City/State/Zipcode | Phone Number | | Organization | | | | + + + + + | [facility] | [address] | [place] [address] | | | LABORATORY | | | [...] | | | DEPARTMENT | | | JORDANIAN | | | OF | | | [...] DEPARTMENT OF | [address] | [place] [address] | | | PATHOLOGY | [address] [...] + | [facility]PT OF | [address] [facility] | [place], [place] | | | CARDIOLOGY | [address] | [address] | | + + + + + [...] DEPT OF | [address] | [place], [place] | | | CARDIOLOGY | [address] | [address] | | + + + + + [...] view image for the detailed interpretation from [employer] results. | CARDIOLOGY | + + + + + + + + | Performing | Address | City/State/Zipcode | Phone Number | | Organization | | | | + + + + + | [facility] | [address] | [place], [place] | | | CARDIOLOGY | [address] | [address] | | + + + + + documented in this encounter Visit Diagnoses + + | Diagnosis | + + | Chest pain - Primary Chest pain, unspecified | + + | Bradycardia Other specified cardiac dysrhythmias | + + | Pacemaker Cardiac pacemaker in situ | + + documented in this encounter
--- OUTSIDE RECORDS SUMMARY | ~2020-08-06 | XMS | Encounter Summary ---
Demographics + + + | Address | [address] | | | [place] [address] | + + + | Home Phone [...] + +------+ + | Care Director Of Neurology Name | Role | Phone | + [...] | Specialty | Urology | Diagnoses | [place], | [place], | | | Services | | Urinary | Michael Cole DO | Miguel Cr MD | | | Required | | frequency | [address] | [address] | | | | | Incontinence | AVE [place] | [place] | | | | | | [place], [place] | [place] | | | | | | [address] | [address] Phone: | | | | | | Phone: | [phone] | | | | | | [phone] | Fax: | | | | | | Fax: | [phone] | | | | | | [phone] | | +--------+ + + + + + Reason for Visit + + + | Reason | Comments | + + + | Medicare Wellness | | + + + Encounter Details +--------+---------+ + + + | Date | Type | Department | Care Team | Description | +--------+---------+ + + + | 07/25/ | Office | [facility] | Michael Amanda, | Preventative health | | 2014 | Visit | [facility] [place] | DO [address] | care (Primary Dx); | | | | [address] | [place] | Cannabis abuse, | | | | [place] | [address] | daily use; Urinary | | | | [address] | | frequency; | | | | [phone] | | Incontinence; | | | | [...] needed for Chest pain. 25 tablet 12 [place]-3 Fatty Acids (SALMON OIL-1000 PO) CAPS, one [...] as Nurse Practitioner (Cardiology) FENG Chou (Physician Label Cutter) Current Medicare Suppliers: [facility] - [place], [place] - [address] [place] [address] [facility] - [place], [place] - [address] [place] [address] HEALTH RISK ASSESSMENT: : The patient or [...] no kevin in the usual sections in [employer]. documented in this en counter Miscellaneous Notes Miscellaneous - ONBASE SCAN RANDA - 07/25/2014 12:00 AM PDT documented in this encounter Plan of Treatment +--------+ + + + + | Date | Type | Specialty | Care Team | Description | +--------+ + + + + | 08/21/ | Implant | Cardiology | Daljit Singletary, | Remote Device | | 2019 | Monitor | | MD [address] | Interrogation | | | | | [place], | (Primary Dx); | | | | | [place] [address] | Pacemaker; | | | | | [phone] | Sinoatrial node | | | | | | dysfunction (HCC) | | | | | | with symptomatic | | | | | | bradycardia | +--------+ + + + + | 08/21/ | Implant | Cardiology | Daljit Singletary, | Remote Device | | 2020 | Monitor | | MD [address] | Interrogation | | | | | [place], | (Primary Dx); | | | | | [place] [address] | Pacemaker; | | | | | [phone] | Sinoatrial node | | | | | | dysfunction (HCC) | | | | | | with symptomatic | | | | | | bradycardia | +--------+ + + + + | 08/21/ | Implant | Cardiology | Daljit Singletary, | Remote Device | | 2019 | Monitor | | MD [address] | Interrogation | | | | | [place], | (Primary Dx); | | | | | [place] [address] | Pacemaker; | | | | | [phone] | Sinoatrial node | | | | | | dysfunction (HCC) | | | | | | with symptomatic | | | | | | bradycardia | +--------+ + + + + | 08/21/ | Implant | Cardiology | Daljit Singletary, | Remote Device | | 2019 | Monitor | | MD [address] | Interrogation | | | | | [facility], | (Primary Dx); | | | | | [place] [address] | Pacemaker; | | | | | [phone] | Sinoatrial node | | | | | | dysfunction (HCC) | | | | | | with symptomatic | | | | | | bradycardia | +--------+ + + + + | 08/21/ | Implant | Cardiology | Daljit Singletary, | Remote Device | | 2019 | Monitor | | MD [address] | Interrogation | | | | | [facility], | (Primary Dx); | | | | | [place] [address] | Pacemaker; | | | | | [phone] | Sinoatrial node | | | | [...] W | | | | | | [place], | | | | | | [place] [address] | | | | | | [phone] | | | | | | | [...] nonalcoholic liver disease | + + | Remote Device Interrogation [...]
--- OUTSIDE RECORDS SUMMARY | ~2020-08-06 | XMS | Encounter Summary ---
Demographics + + + | Address | [address] | | | [place] [address] | + + + | Home Phone [...] + + | 01/25/ | Hospital | [facility] | Daljit Singletary, | Stable angina | | 2019 | Encounter | MED CTR CV INTRA OP | MD [address] | pectoris ([facility]) | | | | [address] | [address] [place], | | | | | [place] | [place] [address] | | | | | [address] | [phone] | | | | | [phone] | | | +--------+ + + + [...] as a collagen plugis used on the [facility] site to close the site, you may [...] by your healthcare provider Date Last Reviewed: 09/22/201619998420-9268 [employer]. [address] [place] [address]. All righ ts reserved. This information is [...] + + + +---------+ + + | [place]-3 Fatty | CAPS, one capsule by | [...] of non-critical coronary artery d isease involving ramona coronary artery of ramona heart without angina pectoris, essential h ypertension, [...] Preventative health care Coronary artery disease involving ramona coronary artery of ramona heart without angina pectoris Cannabis abuse, daily [...] 3RD DOSE, CALL 911 100 tablet 3 [place]-3 Fatty Acids (SALMON OIL-1000 PO) CAPS, one capsule by mouth daily twice daily ondansetron (ZOFRAN ODT) 4 mg disintegrating tablet Take 4 mg by mouth. ONE TOUCH DELICA LANCETS [facility] [...] was found Confirmed by HIREN WINKLER, ANGELA ([id number]) on 01/03/2019 8:10:39 PM LAB RESULTS reviewed [...] HPI. RESULTS- I reviewed reports from [facility]: Xr Chest Ap Portable Result [...] ASSESSMENT: 1. Non-critical Coronary artery disease involving ramona coronary artery of ramona heart [facility] angina pectoris: A. 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 Heart failure stage [...] [facility] Patient had spontaneous PVC's from [...] go back in 3 days t o Belkofski for an attempt of ablation under general [...] office if he has any further problems IChristine, Silk Screen Processor am acting as a scribe on behalf of, and in the pres ence of PARISA Lomas. - Crhistine Rodriguez Silk Screen Processor 01/11/2019 13:46 I, PARISA Lomas, personally performed the services described in this documentati on, as scribed in my presence and it is both accurate and complete. -PARISA Lomas 01/11/2019 Portions of this chart may have been created with [employer] voice recognition software. Occasi onal wrong-word or [...] Dx); | | | | | [place] [address] | Pacemaker; | | | | | [phone] | Sinoatrial node | | | | | | dysfunction (HCC) | | | | | | with symptomatic | | | | | | bradycardia | +--------+ + + + + | 08/21/ | Implant | Cardiology | Daljit Singletary, | Remote Device | | 2019 | Monitor | | MD [address] | Interrogation | | | | | [place], | (Primary Dx); | | | | | [place] [address] | Pacemaker; | | | | | [phone] | Sinoatrial node | | | | | | dysfunction (HCC) | | | | | | with symptomatic | | | | | | bradycardia | +--------+ + + + + | 08/21/ | Implant | Cardiology | Daljit Singletary, | Remote Device | | 2019 | Monitor | | MD [address] | Interrogation | | | | | [place], | (Primary Dx); | | | | | [place] [address] | Pacemaker; | | | | | [phone] | Sinoatrial node | | | | | | dysfunction (HCC) | | | | | | with symptomatic | | | | | | bradycardia | +--------+ + + + + | 08/21/ | Implant | Cardiology | Daljit Singletary, | Remote Device | | 2020 | Monitor | | MD [address] | Interrogation | | | | | [place], | (Primary Dx); | | | | | [place] [address] | Pacemaker; | | | | | [phone] | Sinoatrial node | | | | | | dysfunction (HCC) | | | | | | with symptomatic | | | | | | bradycardia | +--------+ + + + + | 08/21/ | Implant | Cardiology | Daljit Singletary, | Remote Device | | 2019 | Monitor | | MD [address] | Interrogation | | | | | [place], | (Primary Dx); | | | | | [place] [address] | Pacemaker; | | | | | [phone] | Sinoatrial node | | | | [...] W | | | | | | [place], | | | | | | [place] [address] | | | | | | [phone] | | | | | | | [...] (1960) MEDICAL RECORD NUMBER: | | | [id number] OF PROCEDURE: 01/25/2019 DIET CONSULTANT: Daljit | | | MD Gmeini PROCEDURES PERFORMED:Coronary AngiographyLeft Heart | | | [...] Sanchez, (1960) | | OF PROCEDURE: 01/25/2019PRIMARY INSOLE TACK PULLER HAND: Daljit Singletary MD PROCEDURES | | PERFORMED:Coronary [...] angina pectoris (HCC) | + + | Remote Device [...]
--- OUTSIDE RECORDS SUMMARY | ~2020-08-06 | XMS | Encounter Summary ---
Demographics + + + | Address | [address] | | | [place] [address] | + + + | Home Phone [...] Providers + +------+ + | Care Facilities Specialist Name | Role | Phone | + +------+ + PCP | Unavailable | + +------+ + Encounter Details +--------+ + + + + | Date | Type | Department | Care Team | Description | +--------+ + + + + | 03/08/ | [facility] | [facility] | Emmanuel Daniel MD | | | 2006 | Encounter | MED CTR GENERIC OP | [address] | | | | | CONV DEPT [address] | [address] | | | | | [place], | [address] | | | | | [place] [address] | | | | | | [phone] | | | +--------+ + + + [...] 2019 | Monitor | | [address] | Interrogation | | | | | [place], | (Primary Dx); | | | | | [place] [address] | Pacemaker; | | | | | [phone] | Sinoatrial node | | | | | | dysfunction (HCC) | | | | | | with symptomatic | | | | | | bradycardia | +--------+ + + + + | 08/21/ | Implant | Cardiology | Daljit Singletary, | Remote Device | | 2019 | Monitor | | MD [address] | Interrogation | | | | | [place], | (Primary Dx); | | | | | [place] [address] | Pacemaker; | | | | | [phone] | Sinoatrial node | | | | | | dysfunction (HCC) | | | | | | with symptomatic | | | | | | bradycardia | +--------+ + + + + | 08/21/ | Implant | Cardiology | Daljit Singletary, | Remote Device | | 2020 | Monitor | | MD [address] | Interrogation | | | | | [place], | (Primary Dx); | | | | | [place] [address] | Pacemaker; | | | | | [phone] | Sinoatrial node | | | | | | dysfunction (HCC) | | | | | | with symptomatic | | | | | | bradycardia | +--------+ + + + + | 08/21/ | Implant | Cardiology | Daljit Singletary | Remote Device | | 2019 | Monitor | | MD [address] | Interrogation | | | | | [place], | (Primary Dx); | | | | | [place] [address] | Pacemaker; | | | | | [phone] | Sinoatrial node | | | | | | dysfunction (HCC) | | | | | | with symptomatic | | | | | | bradycardia | +--------+ + + + + | 08/21/ | Implant | Cardiology | Daljit Singletary, | Remote Device | | 2020 | Monitor | | MD [address] | Interrogation | | | | | [place], | (Primary Dx); | | | | | [place] [address] | Pacemaker; | | | | | [phone] | Sinoatrial node | | | | [...] | | | | | | [place] [address] | | | | | | [phone] | | | | | | | | +--------+ + + + + documented as of this encounter Visit Diagnoses Not on filedocumented in this encounter"
--- OUTSIDE RECORDS SUMMARY | ~2020-08-06 | XMS | Encounter Summary ---
Demographics + + + | Address | [address] | | | [place] [address] | + + + | Home Phone [...] Providers + +------+ + | Care Manual Equipment Mechanic Name | Role | Phone [...] 2018 | | GASTROENTEROLOGY | [address], [place] | | | | | [address] [place] | [address] [place], [place] | | | | | [address] [place], [place] | [address] | | | | | [address] | | | | | | [phone] | | | +--------+ + + + [...] | Monitor | | MD [address] | Interrogation | | | | | [place], | (Primary Dx); | | | | | [place] [address] | Pacemaker; | | | | | [phone] | Sinoatrial node | | | | | | dysfunction ([facility]) | | | | | | with symptomatic | | | | | | bradycardia | +--------+ + + + + | 08/21/ | Implant | Cardiology | Daljit Singletary | Remote Device | | 2020 | Monitor | | MD [address] | Interrogation | | | | | [place], | (Primary Dx); | | | | | [place] [address] | Pacemaker; | | | | | [phone] | Sinoatrial node | | | | | | dysfunction (HCC) | | | | | | with symptomatic | | | | | | bradycardia | +--------+ + + + + | 08/21/ | Implant | Cardiology | Daljit Singletary, | Remote Device | | 2019 | Monitor | | MD [address] | Interrogation | | | | | [place], | (Primary Dx); | | | | | [place] [address] | Pacemaker; | | | | | [phone] | Sinoatrial node | | | | | | dysfunction (HCC) | | | | | | with symptomatic | | | | | | bradycardia | +--------+ + + + + | 08/21/ | Implant | Cardiology | Daljit Singletary, | Remote Device | | 2019 | Monitor | | MD [address] | Interrogation | | | | | [place], | (Primary Dx); | | | | | [place] [address] | Pacemaker; | | | | | [phone] | Sinoatrial node | | | | | | dysfunction ([facility]) | | | | | | with symptomatic | | | | | | bradycardia | +--------+ + + + + | 08/21/ | Implant | Cardiology | Daljit Singletary, | Remote Device | | 2019 | Monitor | | MD [address] | Interrogation | | | | | [place], | (Primary Dx); | | | | | [place] [address] | Pacemaker; | | | | | [phone] | Sinoatrial node | | | | [...] W | | | | | | [place], | | | | | | [place] [address] | | | | | | [phone] | | | | | | | [...] | EXTERNAL LAB: [facility] | Routin | 10/18/2017 | | Results [...]
--- OUTSIDE RECORDS SUMMARY | ~2020-08-06 | XMS | Encounter Summary ---
Demographics + + + | Address | [address] | | | [place] [address] | + + + | Home Phone [...] Team Providers + +------+ + | Care Squeegee Operator Name | Role | Phone | [...] + + | 09/09/ | Office | [facility] | Michael Amanda, | Hyperlipidemia; | | 2011 | Visit | [facility] | DO [address] | Hypertension; | | | | [address] | [place] | Chronic pain | | | | [place], [place] | [address] | syndrome; Neck pain, | | | | [address] | | chronic | | | | [phone] | | | +--------+---------+ + + + [...] damage history No ASHD (either angina; prior MT; prior CABG) No cardiac end organ damage [...] slowly cutting back. Pt was going through [facility] for opiate medications prior to [...] | Monitor | | MD [address] | Interrogation | | | | | [place], | (Primary Dx); | | | | | [place] [address] | Pacemaker; | | | | | [phone] | Sinoatrial node | | | | | | dysfunction (HCC) | | | | | | with symptomatic | | | | | | bradycardia | +--------+ + + + + | 08/21/ | Implant | Cardiology | Daljit Singletary, | Remote Device | | 2019 | Monitor | | MD [address] | Interrogation | | | | | [place], | (Primary Dx); | | | | | [place] [address] | Pacemaker; | | | | | [phone] | Sinoatrial node | | | | | | dysfunction (HCC) | | | | | | with symptomatic | | | | | | bradycardia | +--------+ + + + + | 08/21/ | Implant | Cardiology | Daljit Singletary, | Remote Device | | 2019 | Monitor | | MD [address] | Interrogation | | | | | [place], | (Primary Dx); | | | | | [place] [address] | Pacemaker; | | | | | [phone] | Sinoatrial node | | | | | | dysfunction (HCC) | | | | | | with symptomatic | | | | | | bradycardia | +--------+ + + + + | 08/21/ | Implant | Cardiology | Daljit Singletary, | Remote Device | | 2019 | Monitor | | MD [address] | Interrogation | | | | | [place], | (Primary Dx); | | | | | [place] [address] | Pacemaker; | | | | | [phone] | Sinoatrial node | | | | | | dysfunction (HCC) | | | | | | with symptomatic | | | | | | bradycardia | +--------+ + + + + | 08/21/ | Implant | Cardiology | Daljit Singletary, | Remote Device | | 2020 | Monitor | | MD [address] | Interrogation | | | | | [place], | (Primary Dx); | | | | | [place] [address] | Pacemaker; | | | | | [phone] | Sinoatrial node | | | | [...] W | | | | | | [place], | | | | | | [place] [address] | | | | | | [phone] | | | | | | | [...] pain, chronic Cervicalgia | + + | Remote Device Interrogation [...]
--- OUTSIDE RECORDS SUMMARY | ~2020-08-06 | XMS | Encounter Summary ---
Demographics + + + | Address | [address] | | | [place] [address] | + + + | Home Phone [...] Team Providers + +------+ + | Care Humidifier Attendant Name | Role | Phone | [...] [place] | | | | | | [address] | | | | | | [phone] | | | +--------+ + + + [...] | Monitor | | MD [address] | Interrogation | | | | | [place], | (Primary Dx); | | | | | [place] [address] | Pacemaker; | | | | | [phone] | Sinoatrial node | | | | | | dysfunction (HCC) | | | | | | with symptomatic | | | | | | bradycardia | +--------+ + + + + | 08/21/ | Implant | Cardiology | Daljit Singletary, | Remote Device | | 2019 | Monitor | | MD [address] | Interrogation | | | | | [place], | (Primary Dx); | | | | | [place] [address] | Pacemaker; | | | | | [phone] | Sinoatrial node | | | | | | dysfunction (HCC) | | | | | | with symptomatic | | | | | | bradycardia | +--------+ + + + + | 08/21/ | Implant | Cardiology | Daljit Singletary, | Remote Device | | 2019 | Monitor | | MD [address] | Interrogation | | | | | [place], | (Primary Dx); | | | | | [place] [address] | Pacemaker; | | | | | [phone] | Sinoatrial node | | | | | | dysfunction (HCC) | | | | | | with symptomatic | | | | | | bradycardia | +--------+ + + + + | 08/21/ | Implant | Cardiology | Daljit Singletary, | Remote Device | | 2019 | Monitor | | MD [address] | Interrogation | | | | | [place], | (Primary Dx); | | | | | [place] [address] | Pacemaker; | | | | | [phone] | Sinoatrial node | | | | | | dysfunction (HCC) | | | | | | with symptomatic | | | | | | bradycardia | +--------+ + + + + | 08/21/ | Implant | Cardiology | Daljit Singletary, | Remote Device | | 2019 | Monitor | | MD [address] | Interrogation | | | | | [place], | (Primary Dx); | | | | | [place] [address] | Pacemaker; | | | | | [phone] | Sinoatrial node | | | | [...] | | | | | | [place] [address] | | | | | | [phone] | | | | | | | | +--------+ + + + + documented as of this encounter Visit Diagnoses Not on filedocumented in this encounter"
--- OUTSIDE RECORDS SUMMARY | ~2020-08-06 | XMS | Encounter Summary ---
Demographics + + + | Address | [address] | | | [place] [address] | + + + | Home Phone [...] Providers + +------+ + | Care Industrial Twisting Machine Operator Name | Role | Phone | + +------+ + PCP | Unavailable | + +------+ + Encounter Details +--------+ + + + + | Date | Type | Department | Care Team | Description | +--------+ + + + + | 09/24/ | [facility] | [facility] | Evan Gandara MD | | | 2005 | Encounter | MED CTR XRAY [address] | [address] [facility] | | | | | [place] | [place] | | | | | [place] [address] | [address] | | | | | [phone] | | | +--------+ + + + [...] | Monitor | | MD [address]iqu[address] [place] | Interrogation | | | | | [place], | (Primary Dx); | | | | | [place] [address] | Pacemaker; | | | | | [phone] | Sinoatrial node | | | | | | dysfunction (HCC) | | | | | | with symptomatic | | | | | | bradycardia | +--------+ + + + + | 08/21/ | Implant | Cardiology | Daljit Singletary, | Remote Device | | 2019 | Monitor | | MD [address] [place] | Interrogation | | | | | [place], | (Primary Dx); | | | | | [place] [address] | Pacemaker; | | | | | [phone] | Sinoatrial node | | | | | | dysfunction (HCC) | | | | | | with symptomatic | | | | | | bradycardia | +--------+ + + + + | 08/21/ | Implant | Cardiology | Daljit Singletary, | Remote Device | | 2019 | Monitor | | MD [address] [place] | Interrogation | | | | | [place], | (Primary Dx); | | | | | [place] [address] | Pacemaker; | | | | | [phone] | Sinoatrial node | | | | | | dysfunction (HCC) | | | | | | with symptomatic | | | | | | bradycardia | +--------+ + + + + | 08/21/ | Implant | Cardiology | Daljit Singletary, | Remote Device | | 2019 | Monitor | | MD [address] [place] | Interrogation | | | | | [place], | (Primary Dx); | | | | | [place] [address] | Pacemaker; | | | | | [phone] | Sinoatrial node | | | | | | dysfunction (HCC) | | | | | | with symptomatic | | | | | | bradycardia | +--------+ + + + + | 08/21/ | Implant | Cardiology | Daljit Singletary, | Remote Device | | 2019 | Monitor | | MD [address] [place] | Interrogation | | | | | [place], | (Primary Dx); | | | | | [place] [address] | Pacemaker; | | | | | [phone] | Sinoatrial node | | | | [...] | | | | | | [place] [address] | | | | | | [phone] | | | | | | | | +--------+ + + + + documented as of this encounter Visit Diagnoses Not on filedocumented in this encounter"
--- OUTSIDE RECORDS SUMMARY | ~2020-08-06 | XMS | Encounter Summary ---
Demographics + + + | Address | [address] [place] [address] [address] | | | [place] [address] | + + + | Home Phone [...] [place] | | | | | [address] | | + + + + + Care Team Providers + +------+ + | Care Gel Coat Sprayer Name | Role | Phone | + +------+ + | Darion Holden DO | PCP | | + +------+ + Reason for Visit + +--------+ + | Reason | Onset | Comments | | | Date | | + +--------+ + | Medical Records | 11/28/ | | | Review | 2020 | | + +--------+ + Encounter Details +--------+ + + + + | Date | Type | Department | Care Team | Description | +--------+ + + + + | 11/28/ | Abstract | [facility] | Bridgette Rios, | Medical Records | | 2020 | | Center at [facility] [address] | MD [address] | Review | | | | [address] | [place], [place] | | | | | for Health and | [address] | | | | | [facility] | [phone] | | | | | [place], [place] | | | | | | [address] | | | | | | [phone] | | | +--------+ + + + [...]
--- OUTSIDE RECORDS SUMMARY | ~2020-08-06 | XMS | Encounter Summary ---
Demographics + + + | Address | [address] | | | [place] [address] | + + + | Home Phone [...] Team Providers + +------+ + | Care Children Librarian Name | Role | Phone | + +------+ + PCP | Unavailable | + +------+ + Encounter Details +--------+ + + + + | Date | Type | Department | Care Team | Description | +--------+ + + + + | 01/14/ | Hospital | [facility] | Benji, | BACKACHE NOS | | 2004 | Encounter | MEDICAL [facility]ENTER | MD [address] | | | | | CLINICAL DECISION | [address] | | | | | [address] | [place] [address] | | | | | [place], [place] | [phone] | | | | | [address] | | | | | | [phone] | | | +--------+ + + + [...] 2019 | Monitor | | [address] | Interrogation | | | | | [place], | (Primary Dx); | | | | | [place] [address] | Pacemaker; | | | | | [phone] | Sinoatrial node | | | | | | dysfunction (HCC) | | | | | | with symptomatic | | | | | | bradycardia | +--------+ + + + + | 08/21/ | Implant | Cardiology | Daljit Singletary, | Remote Device | | 2019 | Monitor | | MD [address] [place] | Interrogation | | | | | [place], | (Primary Dx); | | | | | [place] [address] | Pacemaker; | | | | | [phone] | Sinoatrial node | | | | | | dysfunction (HCC) | | | | | | with symptomatic | | | | | | bradycardia | +--------+ + + + + | 08/21/ | Implant | Cardiology | Daljit Singletary, | Remote Device | | 2020 | Monitor | | MD [address] [place] | Interrogation | | | | | [place], | (Primary Dx); | | | | | [place] [address] | Pacemaker; | | | | | [phone] | Sinoatrial node | | | | | | dysfunction (HCC) | | | | | | with symptomatic | | | | | | bradycardia | +--------+ + + + + | 08/21/ | Implant | Cardiology | Daljit Singletary, | Remote Device | | 2019 | Monitor | | MD [address] [place] | Interrogation | | | | | [place], | (Primary Dx); | | | | | [place] [address] | Pacemaker; | | | | | [phone] | Sinoatrial node | | | | | | dysfunction (HCC) | | | | | | with symptomatic | | | | | | bradycardia | +--------+ + + + + | 08/21/ | Implant | Cardiology | Daljit Singletary, | Remote Device | | 2019 | Monitor | | MD [address] [place] | Interrogation | | | | | [place], | (Primary Dx); | | | | | [place] [address] | Pacemaker; | | | | | [phone] | Sinoatrial node | | | | [...] W | | | | | | [place], | | | | | | [place] [address] | | | | | | [phone] | | | | | | | | +--------+ + + + + documented as of this encounter Visit Diagnoses + + | Diagnosis | + + | Backache, unspecified | + + | Remote Device [...]
--- OUTSIDE RECORDS SUMMARY | ~2020-08-06 | XMS | Encounter Summary ---
Demographics + + + | Address | [address] | | | [place] [address] | + + + | Home Phone [...] Team Providers + +------+ + | Care Second Facing Baster Name | Role | Phone | [...] 2012 | | CARDIOLOGY [address] | CLAM SHOVEL OPERATOR [address] [place] | | | | | [place], | [place], [place] | | | | | [place] [address] | [address] | | | | | [phone] | | | +--------+ + + + [...] 2019 | Monitor | | [address] [place] | Interrogation | | | | | [place], | (Primary Dx); | | | | | [place] [address] | Pacemaker; | | | | | [phone] | Sinoatrial node | | | | | | dysfunction (HCC) | | | | | | with symptomatic | | | | | | bradycardia | +--------+ + + + + | 08/21/ | Implant | Cardiology | Daljit Singletary, | Remote Device | | 2019 | Monitor | | [address] [place] | Interrogation | | | | | [place], | (Primary Dx); | | | | | [place] [address] | Pacemaker; | | | | | [phone] | Sinoatrial node | | | | | | dysfunction (HCC) | | | | | | with symptomatic | | | | | | bradycardia | +--------+ + + + + | 08/21/ | Implant | Cardiology | WongsuDaljit parkinson, | Remote Device | | 2019 | Monitor | | MD [address] [place] | Interrogation | | | | | [place], | (Primary Dx); | | | | | [place] [address] | Pacemaker; | | | | | [phone] | Sinoatrial node | | | | | | dysfunction (HCC) | | | | | | with symptomatic | | | | | | bradycardia | +--------+ + + + + | 08/21/ | Implant | Cardiology | Daljit Singletary, | Remote Device | | 2019 | Monitor | | MD [address] [place] | Interrogation | | | | | [place], | (Primary Dx); | | | | | [place] [address] | Pacemaker; | | | | | [phone] | Sinoatrial node | | | | | | dysfunction (HCC) | | | | | | with symptomatic | | | | | | bradycardia | +--------+ + + + + | 08/21/ | Implant | Cardiology | Daljit Singletary, | Remote Device | | 2020 | Monitor | | MD [address] [place] | Interrogation | | | | | [place], | (Primary Dx); | | | | | [place] [address] | Pacemaker; | | | | | [phone] | Sinoatrial node | | | | [...] | | | | | | [place], | | | | | | [place] [address] | | | | | | [phone] | | | | | | | [...] + | [facility] | [address] | [place], [place] | | | [facility] | | [address] | | | - LABORATORY [...] | | | LAB | | | Ukrainian, | | | | | | External [...]
--- OUTSIDE RECORDS SUMMARY | ~2020-08-06 | XMS | Encounter Summary ---
Demographics + + + | Address | [address] | | | [place] [address] | + + + | Home Phone [...] Providers + +------+ + | Care Plant Technician Name | Role | Phone | [...] Refill | | 2014 | | [facility] [place] | DO [address] | | | | | [address] | [place] | | | | | [place], [place] | [address] | | | | | [address] | | | | | | [phone] | | | +--------+--------+ + + + [...] | | 2019 | Monitor | | [place] [address] [facility] | Interrogation | | | | | [address], | (Primary Dx); | | | | | [place] [address] | Pacemaker; | | | | | [phone] | Sinoatrial node | | | | | | dysfunction (HCC) | | | | | | with symptomatic | | | | | | bradycardia | +--------+ + + + + | 08/21/ | Implant | Cardiology | Daljit Singletary, | Remote Device | | 2019 | Monitor | | MD [address] [place] | Interrogation | | | | | [facility], | (Primary Dx); | | | | | [place] [address] | Pacemaker; | | | | | [phone] | Sinoatrial node | | | | | | dysfunction (HCC) | | | | | | with symptomatic | | | | | | bradycardia | +--------+ + + + + | 08/21/ | Implant | Cardiology | Daljit Singletary, | Remote Device | | 2019 | Monitor | | MD [address] [place] | Interrogation | | | | | [facility], | (Primary Dx); | | | | | [place] [address] | Pacemaker; | | | | | [phone] | Sinoatrial node | | | | | | dysfunction (HCC) | | | | | | with symptomatic | | | | | | bradycardia | +--------+ + + + + | 08/21/ | Implant | Cardiology | Daljit Singletary, | Remote Device | | 2020 | Monitor | | MD [address] [place] | Interrogation | | | | | [place], | (Primary Dx); | | | | | [place] [address] | Pacemaker; | | | | | [phone] | Sinoatrial node | | | | | | dysfunction (HCC) | | | | | | with symptomatic | | | | | | bradycardia | +--------+ + + + + | 08/21/ | Implant | Cardiology | Daljit Singletary, | Remote Device | 2019 | Monitor | | [address] [place] | Interrogation | | | | | [place], | (Primary Dx); | | | | | [place] [address] | Pacemaker; | | | | | [phone] | Sinoatrial node | | | | [...] W | | | | | | [place], | | | | | | [place] [address] | | | | | | [phone] | | | | | | | | +--------+ + + + + documented as of this encounter Visit Diagnoses Not on filedocumented in this encounter"
--- OUTSIDE RECORDS SUMMARY | ~2020-08-06 | XMS | Encounter Summary ---
Demographics + + + | Address | [address] | | | [place] [address] | + + + | Home Phone [...] Providers + +------+ + | Care Fire Marshal Name | Role | Phone | + +------+ + PCP | Unavailable | + +------+ + Encounter Details +--------+ + + + + | Date | Type | Department | Care Team | Description | +--------+ + + + + | 09/12/ | Hospital | [facility] | | | | 1993 | Encounter | MED CTR EMERGENCY | | | | | | CENTER [address] | | | | | | [place] | | | | | | [address] | | | | | | [phone] | | | +--------+ + + + [...] | Monitor | | MD [address] | Interrogation | | | | | [place], | (Primary Dx); | | | | | [place] [address] | Pacemaker; | | | | | [phone] | Sinoatrial node | | | | | | dysfunction (HCC) | | | | | | with symptomatic | | | | | | bradycardia | +--------+ + + + + | 08/21/ | Implant | Cardiology | Daljit Singletary, | Remote Device | | 2019 | Monitor | | MD [address] [place] | Interrogation | | | | | [place], | (Primary Dx); | | | | | [place] [address] | Pacemaker; | | | | | [phone] | Sinoatrial node | | | | | | dysfunction (HCC) | | | | | | with symptomatic | | | | | | bradycardia | +--------+ + + + + | 08/21/ | Implant | Cardiology | Daljit Singletary, | Remote Device | | 2019 | Monitor | | MD [address] [place] | Interrogation | | | | | [place], | (Primary Dx); | | | | | [place] [address] | Pacemaker; | | | | | [phone] | Sinoatrial node | | | | | | dysfunction (HCC) | | | | | | with symptomatic | | | | | | bradycardia | +--------+ + + + + | 08/21/ | Implant | Cardiology | Daljit Singletary, | Remote Device | | 2019 | Monitor | | MD [address] [place] | Interrogation | | | | | [place], | (Primary Dx); | | | | | [place] [address] | Pacemaker; | | | | | [phone] | Sinoatrial node | | | | | | dysfunction (HCC) | | | | | | with symptomatic | | | | | | bradycardia | +--------+ + + + + | 08/21/ | Implant | Cardiology | Daljit Singletary, | Remote Device | | 2019 | Monitor | | MD [address] | Interrogation | | | | | [place], | (Primary Dx); | | | | | [place] [address] | Pacemaker; | | | | | [phone] | Sinoatrial node | | | | [...] | | | | | | [place] [address] | | | | | | [phone] | | | | | | | | +--------+ + + + + documented as of this encounter Visit Diagnoses Not on filedocumented in this encounter"
--- OUTSIDE RECORDS SUMMARY | ~2020-08-06 | XMS | Encounter Summary ---
Demographics + + + | Address | [address] | | | [place] [address] | + + + | Home Phone [...] Providers + +------+ + | Care Dye Lab Technician Name | Role | Phone [...] + | 02/21/ | Telephone | [facility] | Emmanuel Daniel MD | Other (? referral) | | 2019 | | GASTROENTEROLOGY | [address], [place] | | | | | [address] [place] | [address] [place], [place] | | | | | [address] [place], [place] | [address] | | | | | [address] | | | | | | [phone] | | | +--------+ + + + [...] requesting Dr. Daniel reconsider sending referral to [facility] because they will not acce pt referral from PCP. [facility] told him outside referrals as far away [...] on Wednesday we can request referral to [facility] for IBS, he agreed. He said likely they will tell him same thing as Dr. Daniel, but [facility]. Phone note on [...] | Monitor | | MD [address] | Interrogation | | | | | [place], | (Primary Dx); | | | | | [place] [address] | Pacemaker; | | | | | [phone] | Sinoatrial node | | | | | | dysfunction (HCC) | | | | | | with symptomatic | | | | | | bradycardia | +--------+ + + + + | 08/21/ | Implant | Cardiology | Daljit Singletary, | Remote Device | | 2019 | Monitor | | MD [address] | Interrogation | | | | | [place], | (Primary Dx); | | | | | [place] [address] | Pacemaker; | | | | | [phone] | Sinoatrial node | | | | | | dysfunction (HCC) | | | | | | with symptomatic | | | | | | bradycardia | +--------+ + + + + | 08/21/ | Implant | Cardiology | Daljit Singletary, | Remote Device | | 2020 | Monitor | | MD [address] | Interrogation | | | | | [place], | (Primary Dx); | | | | | [place] [address] | Pacemaker; | | | | | [phone] | Sinoatrial node | | | | | | dysfunction (HCC) | | | | | | with symptomatic | | | | | | bradycardia | +--------+ + + + + | 08/21/ | Implant | Cardiology | Daljit Singletary, | Remote Device | | 2019 | Monitor | | MD [address] | Interrogation | | | | | [place], | (Primary Dx); | | | | | [place] [address] | Pacemaker; | | | | | [phone] | Sinoatrial node | | | | | | dysfunction (HCC) | | | | | | with symptomatic | | | | | | bradycardia | +--------+ + + + + | 08/21/ | Implant | Cardiology | Daljit Singletary, | Remote Device | | 2019 | Monitor | | MD [address] | Interrogation | | | | | [place], | (Primary Dx); | | | | | [place] [address] | Pacemaker; | | | | | [phone] | Sinoatrial node | | | | [...] | | | | | | [place] [address] | | | | | | [phone] | | | | | | | | +--------+ + + + + documented as of this encounter Visit Diagnoses Not on filedocumented in this encounter
--- OUTSIDE RECORDS SUMMARY | ~2020-08-06 | XMS | Encounter Summary ---
Demographics + + + | Address | [address] | | | [place] [address] | + + + | Home Phone [...] Providers + +------+ + | Care Box Lidder Name | Role | Phone | + [...] Refill | | 2013 | | [facility] [place] | DO [address] | | | | | [address] | [place] | | | | | [place] | [address] | | | | | [address] | | | | | | [phone] | | | +--------+--------+ + + + [...] | Monitor | | MD [address] | Interrogation | | | | | [place], | (Primary Dx); | | | | | [place] [address] | Pacemaker; | | | | | [phone] | Sinoatrial node | | | | | | dysfunction ([facility]) | | | | | | with symptomatic | | | | | | bradycardia | +--------+ + + + + | 08/21/ | Implant | Cardiology | Daljit Singletary | Remote Device | | 2019 | Monitor | | MD [address] | Interrogation | | | | | [place], | (Primary Dx); | | | | | [place] [address] | Pacemaker; | | | | | [phone] | Sinoatrial node | | | | | | dysfunction (HCC) | | | | | | with symptomatic | | | | | | bradycardia | +--------+ + + + + | 08/21/ | Implant | Cardiology | Daljit Singletary, | Remote Device | | 2019 | Monitor | | MD [address] | Interrogation | | | | | [place], | (Primary Dx); | | | | | [place] [address] | Pacemaker; | | | | | [phone] | Sinoatrial node | | | | | | dysfunction (HCC) | | | | | | with symptomatic | | | | | | bradycardia | +--------+ + + + + | 08/21/ | Implant | Cardiology | Daljit Singletary, | Remote Device | | 2019 | Monitor | | MD [address] | Interrogation | | | | | [place], | (Primary Dx); | | | | | [place] [address] | Pacemaker; | | | | | [phone] | Sinoatrial node | | | | | | dysfunction (HCC) | | | | | | with symptomatic | | | | | | bradycardia | +--------+ + + + + | 08/21/ | Implant | Cardiology | Daljit Singletary, | Remote Device | | 2019 | Monitor | | MD [address] [place] | Interrogation | | | | | [place], | (Primary Dx); | | | | | [place] [address] | Pacemaker; | | | | | [phone] | Sinoatrial node | | | | [...] | | | | | | [place] [address] | | | | | | [phone] | | | | | | | | +--------+ + + + + documented as of this encounter Visit Diagnoses Not on filedocumented in this encounter"
--- OUTSIDE RECORDS SUMMARY | ~2020-08-06 | XMS | Encounter Summary ---
Demographics + + + | Address | [address] | | | [place] [address] | + + + | Home Phone [...] Providers + +------+ + | Care Dust Sampler Name | Role | Phone | [...] [place] | | | | | | [address] | | | | | | [phone] | | | +--------+ + + + [...] | Monitor | | MD [address] | Interrogation | | | | | [place], | (Primary Dx); | | | | | [place] [address] | Pacemaker; | | | | | [phone] | Sinoatrial node | | | | | | dysfunction (HCC) | | | | | | with symptomatic | | | | | | bradycardia | +--------+ + + + + | 08/21/ | Implant | Cardiology | Daljit Singletary, | Remote Device | | 2019 | Monitor | | MD [address] | Interrogation | | | | | [place], | (Primary Dx); | | | | | [place] [address] | Pacemaker; | | | | | [phone] | Sinoatrial node | | | | | | dysfunction (HCC) | | | | | | with symptomatic | | | | | | bradycardia | +--------+ + + + + | 08/21/ | Implant | Cardiology | Daljit Singletary, | Remote Device | | 2019 | Monitor | | MD [address] | Interrogation | | | | | [place], | (Primary Dx); | | | | | [place] [address] | Pacemaker; | | | | | [phone] | Sinoatrial node | | | | | | dysfunction (HCC) | | | | | | with symptomatic | | | | | | bradycardia | +--------+ + + + + | 08/21/ | Implant | Cardiology | Daljit Singletary, | Remote Device | | 2019 | Monitor | | MD [address] | Interrogation | | | | | [place], | (Primary Dx); | | | | | [place] [address] | Pacemaker; | | | | | [phone] | Sinoatrial node | | | | | | dysfunction (HCC) | | | | | | with symptomatic | | | | | | bradycardia | +--------+ + + + + | 08/21/ | Implant | Cardiology | Daljit Singletary, | Remote Device | | 2019 | Monitor | | MD [address] | Interrogation | | | | | [place], | (Primary Dx); | | | | | [place] [address] | Pacemaker; | | | | | [phone] | Sinoatrial node | | | | [...] | | | | | | [place] [address] | | | | | | [phone] | | | | | | | | +--------+ + + + + documented as of this encounter Visit Diagnoses Not on filedocumented in this encounter"
--- OUTSIDE RECORDS SUMMARY | ~2020-08-06 | XMS | Encounter Summary ---
Demographics + + + | Address | [address] | | | [place] [address] | + + + | Home Phone [...] | [facility] | | | and [...] Providers + +------+ + | Care Industrial Analyst Name | Role | Phone | + +------+ + PCP | Unavailable | + +------+ + Encounter Details +--------+ + + + + | Date | Type | Department | Care Team | Description | +--------+ + + + + | 01/17/ | Hospital | [facility] | Jonas Ramos, | | | 2009 | Encounter | MED CTR EMERGENCY | [address] | | | | | CENTER [address] | [facility] | | | | | [place] | [place] [address] | | | | | [address] | [phone] | | | | | [phone] | | | +--------+ + + + [...] Dx); | | | | | [place] [address] | Pacemaker; | | | | | [phone] | Sinoatrial node | | | | [...] Dx); | | | | | [place] [address] | Pacemaker; | | | | | [phone] | Sinoatrial node | | | | | | dysfunction (HCC) | | | | | | with symptomatic | | | | | | bradycardia | +--------+ + + + + | 08/21/ | Implant | Cardiology | Daljit Singletary, | Remote Device | | 2019 | Monitor | | MD [address] | Interrogation | | | | | [place], | (Primary Dx); | | | | | [place] [address] | Pacemaker; | | | | | [phone] | Sinoatrial node | | | | | | dysfunction ([facility]) | | | | | | with symptomatic | | | | | | bradycardia | +--------+ + + + + | 08/21/ | Implant | Cardiology | Daljit Singletary | Remote Device | | 2019 | Monitor | | MD [address] | Interrogation | | | | | [place], | (Primary Dx); | | | | | [place] [address] | Pacemaker; | | | | | [phone] | Sinoatrial node | | | | | | dysfunction ([facility]) | | | | | | with symptomatic | | | | | | bradycardia | +--------+ + + + + | 08/21/ | Implant | Cardiology | Daljit Singletary, | Remote Device | | 2019 | Monitor | | MD [address] | Interrogation | | | | | [facility], | (Primary Dx); | | | | | [place] [address] | Pacemaker; | | | | | [phone] | Sinoatrial node | | | | [...] | | | | | | [place] [address] | | | | | | [phone] | | | | | | | | +--------+ + + + + documented as of this encounter Visit Diagnoses Not on filedocumented in this encounter"
--- OUTSIDE RECORDS SUMMARY | ~2020-08-06 | XMS | Encounter Summary ---
Demographics + + + | Address | [address] | | | [place] [address] | + + + | Home Phone [...] Providers + +------+ + | Care Wharf Tally Clerk Name | Role | Phone | [...] W | question) | | | | [place], | [place], | | | | | [place] [address] | [place] [address] | | | | | [phone] | [phone] | | | | | | | [...] RN - 02/02/2020 2:36 PM PDTPatient notified, [facility], leg swelling is gone ..........................................El radha Valentine RN on 02/02/20 at 2:37 PM elephone Keisha Meza RN - 02/01/2020 12:43 PM PDTLeft message [...] signed by: PARISA Lomas 02/01/2020 11:23 AM elephone Keisha Adams RN - 01/31/2020 4:20 PM PDTPatient left voicemail saying his " legs have doubled in size" today and the physician who prescribed Lyrica at [facility] in [place] suggested he get BLE ultrasounds to check for DVT's. He would like to get ultr asounds done here at [place]. I returned patients call and informed him of Janeen's last message on this note, and patien t states he wants to stop taking Lyrica because of this side effect. He states he is still h aving foot pain because of the edema. I advised patient to follow up today with the [place] clinic to notify them and obtain the ul trasound orders and complete them here at [place]. He will notify us of any worsening [...] Darlene Gabriel RN - 01/31/2020 12:23 PM Marybeth called and left a message on my voi cemail. He states that he sees a pain specialist in [place] and they would like him to star [...] Interrogation | | | | | [place], | (Primary Dx); | | | | | [place] [address] | Pacemaker; | | | | | [phone] | Sinoatrial node | | | | | | dysfunction (HCC) | | | | | | with symptomatic | | | | | | bradycardia | +--------+ + + + + | 08/21/ | Implant | Cardiology | Daljit Singletary, | Remote Device | 2019 | Monitor | | MD [address] | Interrogation | | | | | [place], | (Primary Dx); | | | | | [place] [address] | Pacemaker; | | | | | [phone] | Sinoatrial node | | | | | | dysfunction (HCC) | | | | | | with symptomatic | | | | | | bradycardia | +--------+ + + + + | 08/21/ | Implant | Cardiology | Daljit Singletary, | Remote Device | | 2019 | Monitor | | MD [address] | Interrogation | | | | | [place], | (Primary Dx); | | | | | [place] [address] | Pacemaker; | | | | | [phone] | Sinoatrial node | | | | | | dysfunction (HCC) | | | | | | with symptomatic | | | | | | bradycardia | +--------+ + + + + | 08/21/ | Implant | Cardiology | Daljit Singletary, | Remote Device | | 2019 | Monitor | | MD [address] [place] | Interrogation | | | | | [place], | (Primary Dx); | | | | | [place] [address] | Pacemaker; | | | | | [phone] | Sinoatrial node | | | | | | dysfunction (HCC) | | | | | | with symptomatic | | | | | | bradycardia | +--------+ + + + + | 08/21/ | Implant | Cardiology | Daljit Singletary, | Remote Device | | 2019 | Monitor | | [address] | Interrogation | | | | | [place], | (Primary Dx); | | | | | [place] [address] | Pacemaker; | | | | | [phone] | Sinoatrial node | | | | [...] | | | | | | [place] [address] | | | | | | [phone] | | | | | | | | +--------+ + + + + documented as of this encounter Visit Diagnoses Not on filedocumented in this encounter
--- OUTSIDE RECORDS SUMMARY | ~2020-08-06 | XMS | Encounter Summary ---
Demographics + + + | Address | [address] | | | [place] [address] | + + + | Home Phone [...] Providers + +------+ + | Care Digital Press Operator Name | Role | Phone [...] + | 01/04/ | Telephone | [facility] | Valentine, | Other ( RECORDS | | 2012 | | CARDIOLOGY [address] | PARISA [place] [address] | DISCLOSURE) | | | | [place], | [place], | | | | | [place] [address] | [place] [address] | | | | | [phone] | [phone] | | | | | | | [...] this encounter Miscellaneous Notes Telephone Encounter - DhavaltylersandraTessie - 01/10/2013 11:22 AM PSTThe following extra record s have been faxed today att. To Dr Gambino at [facility] fax [phone] : Holter Monitor 01/20/10 EKG 05/14/11 Labs 05/27/12, 12/12/12 Operative report 06/14/09 Stress test 06/15/08 CT of chest 04/23/08 elep le Encounter - DimitrysandraTessie - 01/04/2013 3:43 PM PSTThe following records have been faxed to Jay Gambino MD at [facility], phone [phone] and fax : Demographics Echo 12/30/12 OC 01/03/13, 12/21/12 [facility] 02/29/12 Chest x-ray 05/13/11 docu mented in this encounter Plan of Treatment +--------+ + + + + | Date | Type | Specialty | Care Team | Description | +--------+ + + + + | 08/21/ | Implant | Cardiology | Daljit Singletary, | Remote Device | | 2019 | Monitor | | MD [address] [place] | Interrogation | | | | | [place], | (Primary Dx); | | | | | [place] [address] | Pacemaker; | | | | | [phone] | Sinoatrial node | | | | | | dysfunction (HCC) | | | | | | with symptomatic | | | | | | bradycardia | +--------+ + + + + | 08/21/ | Implant | Cardiology | Daljit Singletary | Remote Device | | 2019 | Monitor | | MD [address] [place] | Interrogation | | | | | [place], | (Primary Dx); | | | | | [place] [address] | Pacemaker; | | | | | [phone] | Sinoatrial node | | | | | | dysfunction (HCC) | | | | | | with symptomatic | | | | | | bradycardia | +--------+ + + + + | 08/21/ | Implant | Cardiology | Daljit Singletary, | Remote Device | | 2020 | Monitor | | MD [address] [place] | Interrogation | | | | | [place], | (Primary Dx); | | | | | [place] [address] | Pacemaker; | | | | | [phone] | Sinoatrial node | | | | | | dysfunction (HCC) | | | | | | with symptomatic | | | | | | bradycardia | +--------+ + + + + | 08/21/ | Implant | Cardiology | Daljit Singletary, | Remote Device | | 2019 | Monitor | | MD [address] [place] | Interrogation | | | | | [place], | (Primary Dx); | | | | | [place] [address] | Pacemaker; | | | | | [phone] | Sinoatrial node | | | | | | dysfunction ([facility]) | | | | | | with symptomatic | | | | | | bradycardia | +--------+ + + + + | 08/21/ | Implant | Cardiology | Daljit Singletary, | Remote Device | | 2019 | Monitor | | MD [address] [place] | Interrogation | | | | | [place], | (Primary Dx); | | | | | [place] [address] | Pacemaker; | | | | | [phone] | Sinoatrial node | | | | [...] | | | | | | [place] [address] | | | | | | [phone] | | | | | | | | +--------+ + + + + documented as of this encounter Visit Diagnoses Not on filedocumented in this encounter"
--- OUTSIDE RECORDS SUMMARY | ~2020-08-06 | XMS | Encounter Summary ---
Demographics + + + | Address | [address] | | | [place] [address] | + + + | Home Phone [...] Team Providers + +------+ + | Care Pellet Press Operator Name | Role | Phone [...] [address] | | | | | [place], [place] | [address] | | | | | [address] | [place] | | | | | [phone] | [address] | | | | | | [phone] | | | | | | | [...] Notes by Kylah Fraser CMA at 04/11/18 7833 Author: Kylah Fraser CMA Service: (none) Author Type: Hogshead Builder Filed: 04/19/18 1118 Encounter Date: 04/11/2018 Status: Signed Apparatus Lineman: Kylah Fraser CMA (Hogshead Builder) See telephone encounter 04/19/18. docume nted in [...] Dx); | | | | | [place] [address] | Pacemaker; | | | | | [phone] | Sinoatrial node | | | | | | dysfunction (HCC) | | | | | | with symptomatic | | | | | | bradycardia | +--------+ + + + + | 08/21/ | Implant | Cardiology | Daljit Singletary, | Remote Device | | 2019 | Monitor | | MD [address] | Interrogation | | | | | [place], | (Primary Dx); | | | | | [place] [address] | Pacemaker; | | | | | [phone] | Sinoatrial node | | | | | | dysfunction (HCC) | | | | | | with symptomatic | | | | | | bradycardia | +--------+ + + + + | 08/21/ | Implant | Cardiology | Daljit Singletary, | Remote Device | | 2020 | Monitor | | MD [address] [place] | Interrogation | | | | | [place], | (Primary Dx); | | | | | [place] [address] | Pacemaker; | | | | | [phone] | Sinoatrial node | | | | | | dysfunction (HCC) | | | | | | with symptomatic | | | | | | bradycardia | +--------+ + + + + | 08/21/ | Implant | Cardiology | Daljit Singletary, | Remote Device | | 2020 | Monitor | | MD [address] [place] | Interrogation | | | | | [place], | (Primary Dx); | | | | | [place] [address] | Pacemaker; | | | | | [phone] | Sinoatrial node | | | | | | dysfunction (HCC) | | | | | | with symptomatic | | | | | | bradycardia | +--------+ + + + + | 08/21/ | Implant | Cardiology | Daljit Singletary, | Remote Device | | 2020 | Monitor | | MD [address] | Interrogation | | | | | [place], | (Primary Dx); | | | | | [place] [address] | Pacemaker; | | | | | [phone] | Sinoatrial node | | | | [...] W | | | | | | [place], | | | | | | [place] [address] | | | | | | [phone] | | | | | | | [...]
--- OUTSIDE RECORDS SUMMARY | ~2020-08-06 | XMS | Encounter Summary ---
Demographics + + + | Address | [address] | | | [place] [address] | + + + | Home Phone [...] Team Providers + +------+ + | Care Outcomes Specialist Name | Role | Phone | + +------+ + PCP | Unavailable | + +------+ + Encounter Details +--------+ + + + + | Date | Type | Department | Care Team | Description | +--------+ + + + + | 01/20/ | Hospital | [facility] | Geri Angel, | | | 2009 | Encounter | MED CTR GENERIC OP | MEAT CARVER [address] | | | | | CONV DEPT [address] | [place] | | | | | [place], | [address] | | | | | [place] [address] | | | | | | [phone] | | | +--------+ + + + [...] 2019 | Monitor | | [address] | Interrogation | | | | | [place], | (Primary Dx); | | | | | [place] [address] | Pacemaker; | | | | | [phone] | Sinoatrial node | | | | | | dysfunction (HCC) | | | | | | with symptomatic | | | | | | bradycardia | +--------+ + + + + | 08/21/ | Implant | Cardiology | Daljit Singletary, | Remote Device | | 2019 | Monitor | | MD [address] | Interrogation | | | | | [place], | (Primary Dx); | | | | | [place] [address] | Pacemaker; | | | | | [phone] | Sinoatrial node | | | | | | dysfunction (HCC) | | | | | | with symptomatic | | | | | | bradycardia | +--------+ + + + + | 08/21/ | Implant | Cardiology | Daljit Singletary, | Remote Device | | 2020 | Monitor | | MD [address] | Interrogation | | | | | [place], | (Primary Dx); | | | | | [place] [address] | Pacemaker; | | | | | [phone] | Sinoatrial node | | | | | | dysfunction (HCC) | | | | | | with symptomatic | | | | | | bradycardia | +--------+ + + + + | 08/21/ | Implant | Cardiology | Daljit Singletary | Remote Device | | 2019 | Monitor | | MD [address] | Interrogation | | | | | [place], | (Primary Dx); | | | | | [place] [address] | Pacemaker; | | | | | [phone] | Sinoatrial node | | | | | | dysfunction (HCC) | | | | | | with symptomatic | | | | | | bradycardia | +--------+ + + + + | 08/21/ | Implant | Cardiology | Daljit Singletary, | Remote Device | | 2020 | Monitor | | MD [address] | Interrogation | | | | | [place], | (Primary Dx); | | | | | [place] [address] | Pacemaker; | | | | | [phone] | Sinoatrial node | | | | [...] | | | | | | [place] [address] | | | | | | [phone] | | | | | | | | +--------+ + + + + documented as of this encounter Visit Diagnoses Not on filedocumented in this encounter"
--- OUTSIDE RECORDS SUMMARY | ~2020-08-06 | XMS | Encounter Summary ---
Demographics + + + | Address | [address] | | | [place] [address] | + + + | Home Phone [...] Team Providers + +------+ + | Care Reports Analyst Name | Role | Phone | [...] | RN | | | | | [place], | | | | | | [place] [address] | | | | | | [phone] | | | +--------+ + + + [...] Interrogation | | | | | [place], | (Primary Dx); | | | | | [place] [address] | Pacemaker; | | | | | [phone] | Sinoatrial node | | | | | | dysfunction (HCC) | | | | | | with symptomatic | | | | | | bradycardia | +--------+ + + + + | 08/21/ | Implant | Cardiology | Daljit Singletary, | Remote Device | | 2019 | Monitor | | [address] | Interrogation | | | | | [place], | (Primary Dx); | | | | | [place] [address] | Pacemaker; | | | | | [phone] | Sinoatrial node | | | | | | dysfunction (HCC) | | | | | | with symptomatic | | | | | | bradycardia | +--------+ + + + + | 08/21/ | Implant | Cardiology | Daljit Singletary, | Remote Device | | 2020 | Monitor | | MD [address] | Interrogation | | | | | [place], | (Primary Dx); | | | | | [place] [address] | Pacemaker; | | | | | [phone] | Sinoatrial node | | | | | | dysfunction (HCC) | | | | | | with symptomatic | | | | | | bradycardia | +--------+ + + + + | 08/21/ | Implant | Cardiology | Daljit Singletary | Remote Device | | 2019 | Monitor | | MD [address] | Interrogation | | | | | [place], | (Primary Dx); | | | | | [place] [address] | Pacemaker; | | | | | [phone] | Sinoatrial node | | | | | | dysfunction (HCC) | | | | | | with symptomatic | | | | | | bradycardia | +--------+ + + + + | 08/21/ | Implant | Cardiology | Daljit Singletary, | Remote Device | | 2020 | Monitor | | MD [address] | Interrogation | | | | | [place], | (Primary Dx); | | | | | [place] [address] | Pacemaker; | | | | | [phone] | Sinoatrial node | | | | [...] | | | | | | [place] [address] | | | | | | [phone] | | | | | | | | +--------+ + + + + documented as of this encounter Visit Diagnoses Not on filedocumented in this encounter"
--- OUTSIDE RECORDS SUMMARY | ~2020-08-06 | XMS | Encounter Summary ---
Demographics + + + | Address | [address] | | | [place] [address] | + + + | Home Phone [...] Team Providers + +------+ + | Care Appointment Clerk Name | Role | Phone | + +------+ + | Michael Amanda DO | PCP | | + +------+ + Encounter Details +--------+ + + + + | Date | Type | Department | Care Team | Description | +--------+ + + + + | 06/26/ | Hospital | [facility] | Michael Amanda, | Diplopia | | 2012 | Encounter | MED CTR LABORATORY | DO [address] | | | | | [address] [place] | [place], [place] | | | | | [place], [place] | [address] | | | | | [address] | | | | | | [phone] | | | +--------+ + + + [...] + + + +---------+ + + | [place]-3 Fatty | CAPS, one capsule by | [...] 2019 | Monitor | | [place] [facility] [place] | Interrogation | | | | | [place], | (Primary Dx); | | | | | [place] [address] | Pacemaker; | | | | | [phone] | Sinoatrial node | | | | | | dysfunction (HCC) | | | | | | with symptomatic | | | | | | bradycardia | +--------+ + + + + | 08/21/ | Implant | Cardiology | Daljit Singletary, | Remote Device | | 2019 | Monitor | | MD [address] | Interrogation | | | | | [place], | (Primary Dx); | | | | | [place] [address] | Pacemaker; | | | | | [phone] | Sinoatrial node | | | | | | dysfunction (HCC) | | | | | | with symptomatic | | | | | | bradycardia | +--------+ + + + + | 08/21/ | Implant | Cardiology | Daljit Singletary, | Remote Device | | 2019 | Monitor | | MD [address] | Interrogation | | | | | [place], | (Primary Dx); | | | | | [place] [address] | Pacemaker; | | | | | [phone] | Sinoatrial node | | | | | | dysfunction (HCC) | | | | | | with symptomatic | | | | | | bradycardia | +--------+ + + + + | 08/21/ | Implant | Cardiology | Daljit Singletary, | Remote Device | | 2019 | Monitor | | MD [address] | Interrogation | | | | | [place], | (Primary Dx); | | | | | [place] [address] | Pacemaker; | | | | | [phone] | Sinoatrial node | | | | | | dysfunction (HCC) | | | | | | with symptomatic | | | | | | bradycardia | +--------+ + + + + | 08/21/ | Implant | Cardiology | Daljit Singletary, | Remote Device | 2019 | Monitor | | [address] | Interrogation | | | | | [place], | (Primary Dx); | | | | | [place] [address] | Pacemaker; | | | | | [phone] | Sinoatrial node | | | | [...] W | | | | | | [place], | | | | | | [place] [address] | | | | | | [phone] | | | | | | | [...] + | [facility] | [address] | [place], [place] | [phone] | | [facility] | | [address] | | | - LABORATORY | | | | + + + + + | [facility] | [address] | [place], [place] | | | [facility] | | [id number] | | | - LABORATORY | | [...] + | [facility] | [address] | [place] | [phone] | | [facility] | | [address] | | | - LABORATORY | | | | + + + + + | [facility] | [address] | [place] | | | [facility] | | [address] | | | - LABORATORY [...] + | [facility] | [address] | [place], [place] | [phone] | | [facility] | | [address] | | | - LABORATORY | | | | + + + + + | [facility] | [address] | [place], [place] | | | [facility] | | [address] [place] [address] | | | - LABORATORY | | [...] + | [facility] | [address] | [place] | [phone] | | [facility] | | [address] | | | - LABORATORY | | | | + + + + + | [facility] | [address] | [place], [place] | | | [facility] | | [id number] [place] [address] | | | - LABORATORY | | [...] + | [facility] | [address] | [place] | [phone] | | [facility] | | [address] | | | - LABORATORY | | | | + + + + + | [facility] | [address] | [place] | | | [facility] | | [address] | | | - LABORATORY [...] + | [facility] | [address] | [place], [place] | [phone] | | [facility] | | [address] | | | - LABORATORY | | | | + + + + + | [facility] | [address] | [place] | | | [facility] | | [address], [facility] | | | - LABORATORY | | | | + + + + + documented in this encounter Visit Diagnoses + + | Diagnosis | + + | Diplopia | + + | Remote Device Interrogation [...]
--- OUTSIDE RECORDS SUMMARY | ~2020-08-06 | XMS | Encounter Summary ---
Demographics + + + | Address | [address] | | | [place] [address] | + + + | Home Phone [...] Providers + +------+ + | Care Cooler Man Name | Role | Phone | [...] CARDIOLOGY [address] | MD [address] [place] | Interrogation | | | | [place], | [place], | (Primary Dx); | | | | [place] [address] | [place] [address] | Pacemaker; | | | | [phone] | [phone] | Sinoatrial node | | | | [...] (HCC)Date of Remote Interrogation: 2019 Refer to [employer] documentation and remote PDF scanned into [facility] for remote interrogation re sults. Data collected [...] Dx); | | | | | [place] [address] | Pacemaker; | | | | | [phone] | Sinoatrial node | | | | [...] Dx); | | | | | [place] [address] | Pacemaker; | | | | | [phone] | Sinoatrial node | | | | [...] Dx); | | | | | [place] [address] | Pacemaker; | | | | | [phone] | Sinoatrial node | | | | | | dysfunction ([facility]) | | | | | | with symptomatic | | | | | | bradycardia | +--------+ + + + + | 08/21/ | Implant | Cardiology | Daljit Singletary, | Remote Device | | 2019 | Monitor | | MD [address] | Interrogation | | | | | [place], | (Primary Dx); | | | | | [place] [address] | Pacemaker; | | | | | [phone] | Sinoatrial node | | | | | | dysfunction (HCC) | | | | | | with symptomatic | | | | | | bradycardia | +--------+ + + + + | 08/21/ | Implant | Cardiology | Daljit Singletary, | Remote Device | | 2019 | Monitor | | [address] [place] | Interrogation | | | | | [place], | (Primary Dx); | | | | | [place] [address] | Pacemaker; | | | | | [phone] | Sinoatrial node | | | | [...] | | | | | | [place], | | | | | | [place] [address] | | | | | | [phone] | | | | | | | [...] Daljit | [facility] | | MD Gemini 03/07/2020 1:15 PMDate of Remote Interrogation: | | | 03/07/2020 Refer to Paceart documentation and remote PDF scanned into | | | [facility] for remote interrogation results. Data collected by [...]
--- OUTSIDE RECORDS SUMMARY | ~2020-08-06 | XMS | Encounter Summary ---
Demographics + + + | Address | [address] | | | [place] [address] | + + + | Home Phone [...] Providers + +------+ + | Care Marine Operations Coordinator Name | Role | Phone [...] + + | 04/24/ | Office | [facility] | Silvia, | Symptomatic PVCs | | 2012 | Visit | CARDIOLOGY [address] | [place] [address] | (Primary Dx); CAD; | | | | [place], | [place], | Hyperlipidemia; | | | | [place] [address] | [place] [address] | PACEMAKER, PERMANENT | | | | [phone] | [phone] | - [employer] | | | | [...] tablet by mouth Daily. 30 tablet 6 [place]-3 Fatty Acids (SALMON OIL-1000 PO) CAPS, one [...] Reviewed records from PCP and notes from [facility]. Assessment: 1. Symptomatic PVCs status [...] to go back in 3 days to [place] for an attempt of ablation under general [...] He is upgraded to class I of [employer] functional class. There [...] made to ensure accuracy; however, inadvertent computerized chemistry lecturer errors may be pre sent. documented in this encounter Plan of Treatment +--------+ + + + + | Date | Type | Specialty | Care Team | Description | +--------+ + + + + | 08/21/ | Implant | Cardiology | Daljit Snigletary, | Remote Device | | 2019 | Monitor | | MD [address] | Interrogation | | | | | [place], | (Primary Dx); | | | | | [place] [address] | Pacemaker; | | | | | [phone] | Sinoatrial node | | | | | | dysfunction (HCC) | | | | | | with symptomatic | | | | | | bradycardia | +--------+ + + + + | 08/21/ | Implant | Cardiology | Daljit Singletary, | Remote Device | | 2020 | Monitor | | MD [address] | Interrogation | | | | | [place], | (Primary Dx); | | | | | [place] [address] | Pacemaker; | | | | | [phone] | Sinoatrial node | | | | | | dysfunction (HCC) | | | | | | with symptomatic | | | | | | bradycardia | +--------+ + + + + | 08/21/ | Implant | Cardiology | Daljit Singletary, | Remote Device | | 2019 | Monitor | | MD [address] [place] | Interrogation | | | | | [place], | (Primary Dx); | | | | | [place] [address] | Pacemaker; | | | | | [phone] | Sinoatrial node | | | | [...] Interrogation | | | | | [place], | (Primary Dx); | | | | | [place] [address] | Pacemaker; | | | | | [phone] | Sinoatrial node | | | | | | dysfunction (HCC) | | | | | | with symptomatic | | | | | | bradycardia | +--------+ + + + + | 08/21/ | Implant | Cardiology | Daljit Singletary, | Remote Device | | 2019 | Monitor | | [address] [place] | Interrogation | | | | | [place], | (Primary Dx); | | | | | [place] [address] | Pacemaker; | | | | | [phone] | Sinoatrial node | | | | [...] | | | | | | [place] [address] | | | | | | [phone] | | | | | | | | +--------+ + + + + documented as of this encounter Visit Diagnoses + + | Diagnosis | + + | Symptomatic PVCs - Primary Other premature beats | + + | CAD Coronary atherosclerosis of unspecified type of vessel, [place] or graft | + + | Hyperlipidemia [...]
--- OUTSIDE RECORDS SUMMARY | ~2020-08-06 | XMS | Encounter Summary ---
Demographics + + + | Address | [address] | | | [place] [address] | + + + | Home Phone [...] Team Providers + +------+ + | Care Slicing Machine Tender Name | Role | Phone [...] | | | DDD | Scotty [address], [address] | [facility] | | | | | (degenerativ | [address] | [facility] | | | | | e disc | [place] | MEDICAL | | | | | disease), | [address] | CENTER [address] | | | | | lumbar | B | [place] | | | | | Chronic | [place], [place] | [place], | | | | | left-sided | [address] | [place] [address] | | | | | low back | Phone: | Phone: | | | | | pain with | [phone] | [phone] | | | | | left-sided | Fax: | Fax: | | | | | sciatica | [phone] | [phone] | | | | | History of [...] Closed | | Radiology | Diagnoses | [place], | [address] | | | | | DDD | [address]ty [address] | [address] [place] | | | | | (degenerativ | [address] | [place], | | | | | e disc | [place] | [place] [address] | | | | | disease), | [address]IVE [address] | Phone: | | | | | lumbar | B | [phone] | | | | | Chronic | [place], [place] | Fax: | | | | | left-sided | [address] | [phone] | | | | | low back | Phone: | | | | | | pain with | [phone] | | | | | | left-sided | Fax: | | | | | | sciatica | [phone] | | | | | | History [...] + + | 07/01/ | Hospital | [facility] | Scotty Galdamez, | DDD (degenerative | | 2018 | Encounter | MED CTR [address] | [address] [place] | disc disease), | | | | [place], | [address] | lumbar; Chronic | | | | [place] [address] | [place] [address] | left-sided low back | | | | [phone] | [phone] | pain with left-sided | | | [...] + + + +---------+ + + | [place]-3 Fatty | CAPS, one capsule by | [...] Dx); | | | | | [place] [address] | Pacemaker; | | | | | [phone] | Sinoatrial node | | | | | | dysfunction (HCC) | | | | | | with symptomatic | | | | | | bradycardia | +--------+ + + + + | 08/21/ | Implant | Cardiology | Daljit Singletary, | Remote Device | | 2019 | Monitor | | MD [address] [place] | Interrogation | | | | | [place], | (Primary Dx); | | | | | [place] [address] | Pacemaker; | | | | | [phone] | Sinoatrial node | | | | | | dysfunction (HCC) | | | | | | with symptomatic | | | | | | bradycardia | +--------+ + + + + | 08/21/ | Implant | Cardiology | Daljit Singletary, | Remote Device | | 2019 | Monitor | | MD [address] [place] | Interrogation | | | | | [place], | (Primary Dx); | | | | | [place] [address] | Pacemaker; | | | | | [phone] | Sinoatrial node | | | | | | dysfunction (HCC) | | | | | | with symptomatic | | | | | | bradycardia | +--------+ + + + + | 08/21/ | Implant | Cardiology | Daljit Singletary, | Remote Device | | 2019 | Monitor | | MD [address] [place] | Interrogation | | | | | [place], | (Primary Dx); | | | | | [place] [address] | Pacemaker; | | | | | [phone] | Sinoatrial node | | | | | | dysfunction (HCC) | | | | | | with symptomatic | | | | | | bradycardia | +--------+ + + + + | 08/21/ | Implant | Cardiology | Daljit Singletary, | Remote Device | 2019 | Monitor | | MD [address] | Interrogation | | | | | [place], | (Primary Dx); | | | | | [place] [address] | Pacemaker; | | | | | [phone] | Sinoatrial node | | | | [...] W | | | | | | [place], | | | | | | [place] [address] | | | | | | [phone] | | | | | | | [...] | Falling Unspecified fall | + + | Remote Device Interrogation [...]
--- OUTSIDE RECORDS SUMMARY | ~2020-08-06 | XMS | Encounter Summary ---
Demographics + + + | Address | [address] | | | [place] [address] | + + + | Home Phone [...] Providers + +------+ + | Care Patternmaker Apprentice Wood Name | Role | Phone | + [...] Refill | | 2013 | | MEDICINE [facility] | DO [address] | | | | | [address] | [place] | | | | | [place], [place] | [address] | | | | | [address] | | | | | | [phone] | | | +--------+--------+ + + + [...] | Monitor | | MD [address] [place] | Interrogation | | | | | [place], | (Primary Dx); | | | | | [place] [address] | Pacemaker; | | | | | [phone] | Sinoatrial node | | | | | | dysfunction ([facility]) | | | | | | with symptomatic | | | | | | bradycardia | +--------+ + + + + | 08/21/ | Implant | Cardiology | Daljit Singletary | Remote Device | | 2019 | Monitor | | MD [address] [place] | Interrogation | | | | | [place], | (Primary Dx); | | | | | [place] [address] | Pacemaker; | | | | | [phone] | Sinoatrial node | | | | | | dysfunction (HCC) | | | | | | with symptomatic | | | | | | bradycardia | +--------+ + + + + | 08/21/ | Implant | Cardiology | Daljit Singletary, | Remote Device | | 2019 | Monitor | | MD [address] [place] | Interrogation | | | | | [place], | (Primary Dx); | | | | | [place] [address] | Pacemaker; | | | | | [phone] | Sinoatrial node | | | | | | dysfunction (HCC) | | | | | | with symptomatic | | | | | | bradycardia | +--------+ + + + + | 08/21/ | Implant | Cardiology | Daljit Singletary, | Remote Device | | 2019 | Monitor | | MD [address] [place] | Interrogation | | | | | [place], | (Primary Dx); | | | | | [place] [address] | Pacemaker; | | | | | [phone] | Sinoatrial node | | | | | | dysfunction (HCC) | | | | | | with symptomatic | | | | | | bradycardia | +--------+ + + + + | 08/21/ | Implant | Cardiology | Daljit Singletary, | Remote Device | | 2019 | Monitor | | MD [address] [place] | Interrogation | | | | | [place], | (Primary Dx); | | | | | [place] [address] | Pacemaker; | | | | | [phone] | Sinoatrial node | | | | [...] | | | | | | [place], | | | | | | [place] [address] | | | | | | [phone] | | | | | | | | +--------+ + + + + documented as of this encounter Visit Diagnoses Not on filedocumented in this encounter"
--- OUTSIDE RECORDS SUMMARY | ~2020-08-06 | XMS | Encounter Summary ---
Demographics + + + | Address | [address] | | | [place] [address] | + + + | Home Phone [...] Providers + +------+ + | Care Edge Stainer Machine Name | Role | Phone | + +------+ + | Kirk French MD | PCP | | + +------+ + Reason for Visit +--------+--------+ + | Reason | Onset | Comments | | | Date | | +--------+--------+ + | Other | 07/16/ | regarding medication and labs | | | 2019 | | +--------+--------+ + Encounter Details +--------+ + + + + | Date | Type | Department | Care Team | Description | +--------+ + + + + | 07/16/ | Telephone | [facility] | Kirk French | Other (regarding | | 2019 | | [facility] | MD [address] | medication and labs) | | | | [facility] [address] | [facility] [address] | | | | | [place] [facility] [address] | [place] [address] | | | | | [place], [place] | [phone] | | | | | [address] | | | | | | [phone] | | | +--------+ + + + [...] encounter Miscellaneous Notes Telephone Encounter - Heidi Pretty - 07/16/2020 2:57 PM PDT Patient called and stated he stopped taking hydrocodone 5-325 mg 4 or 5 days ago and will c ontinue taking clonazepam. Patient stated he went back on pregabalin 2 days ago since he can 't take hydrocodone and clonazepam together. Patient also stated he had his labs done at [facility] in [place] and wanted to know if provider received results. Caller: Amilcar Relationship to patient:self Preferred call back number [phone] Can a Detailed VM be left on this number: yes Heidi Cordero documented in th is encounter Plan of Treatment +--------+ + + + + | Date | Type | Specialty | Care Team | Description | +--------+ + + + + | 08/21/ | Implant | Cardiology | Daljit Singletary, | Remote Device | | 2019 | Monitor | | [address] | Interrogation | | | | | [place], | (Primary Dx); | | | | | [place] [address] | Pacemaker; | | | | | [phone] | Sinoatrial node | | | | | | dysfunction (HCC) | | | | | | with symptomatic | | | | | | bradycardia | +--------+ + + + + | 08/21/ | Implant | Cardiology | Daljit Singletary | Remote Device | | 2019 | Monitor | | MD [address] [place] | Interrogation | | | | | [place], | (Primary Dx); | | | | | [place] [address] | Pacemaker; | | | | | [phone] | Sinoatrial node | | | | | | dysfunction (HCC) | | | | | | with symptomatic | | | | | | bradycardia | +--------+ + + + + | 08/21/ | Implant | Cardiology | Daljit Singletary, | Remote Device | | 2019 | Monitor | | MD [address] [place] | Interrogation | | | | | [place], | (Primary Dx); | | | | | [place] [address] | Pacemaker; | | | | | [phone] | Sinoatrial node | | | | | | dysfunction (HCC) | | | | | | with symptomatic | | | | | | bradycardia | +--------+ + + + + | 08/21/ | Implant | Cardiology | Daljit Singletary, | Remote Device | | 2019 | Monitor | | MD [address] [place] | Interrogation | | | | | [place], | (Primary Dx); | | | | | [place] [address] | Pacemaker; | | | | | [phone] | Sinoatrial node | | | | | | dysfunction (HCC) | | | | | | with symptomatic | | | | | | bradycardia | +--------+ + + + + | 08/21/ | Implant | Cardiology | Anshujohnsoncherelle Shaistaanshu, | Remote Device | | 2019 | Monitor | | MD [address] [place] | Interrogation | | | | | [place], | (Primary Dx); | | | | | [place] [address] | Pacemaker; | | | | | [phone] | Sinoatrial node | | | | [...] W | | | | | | [place], | | | | | | [place] [address] | | | | | | [phone] | | | | | | | | +--------+ + + + + documented as of this encounter Visit Diagnoses Not on filedocumented in this encounter"
--- OUTSIDE RECORDS SUMMARY | ~2020-08-06 | XMS | Encounter Summary ---
Demographics + + + | Address | [address] [place] [address] [address] | | | [place] [address] | + + + | Home Phone [...] [place] | | | | | [address] | | + + + + + Care Team Providers + +------+ + | Care Fitness Manager Name | Role | Phone | [...] | | Bradycardia | | | | [facility] | | | | | | and Healing, | | | | | | [address] | | | | | | [place], [place] | | | | | | [address] | | | | | | [phone] | | | +--------+------+ + + + [...] Lab) | [facility] | | [facility] [address] | REGIONAL | | [place] [address] | LABORATORY | + + + + + + + + | Performing | Address | City/State/Zipcode | Phone Number | | Organization | | | | + + + + + | [facility] | [address] | [place] [address] | | | LABORATORY | | | [...] [facility] ([address] [facility]) | | | [facility] [place] [address] | | | [address] [place] [facility] [place] [address] | | + + + + + + + + | Performing | Address | City/State/Zipcode | Phone Number | | Organization | | | | + + + + + | [facility] | [address] | [place] [address] | | | LABORATORY | | | [...] | | | DEPARTMENT | | | [facility] | | | OF | | | [...] | + + + + + | [facility][1] | [address] | [place] [address] | | | PATHOLOGY | [address] | | | + + + + + documented in this encounter Visit Diagnoses + + | Diagnosis | + + | Chest pain Chest pain, unspecified | + + | Bradycardia Other specified cardiac dysrhythmias | + + documented in this encounter"
--- OUTSIDE RECORDS SUMMARY | ~2020-08-06 | XMS | Encounter Summary ---
Demographics + + + | Address | [address] | | | [place] [address] | + + + | Home Phone [...] Providers + +------+ + | Care Marine Rigger Name | Role | Phone | [...] + + | 12/29/ | Office | [facility] | [place], | Ascending thoracic | | 2017 | Visit | CARDIOLOGY [address] | [address] [place] [address] | aortic aneurysm | | | | [place], | [place], | ([facility]) (Primary Dx); | | | | [place] [address] | [place] [address] | Coronary artery | | | | [phone] | [phone] | disease involving | | | | | | [place] coronary | | | | | | artery of [place] | | | | | | [...] of non-critical coronary artery d isease involving [place] coronary artery of [place] heart without angina pectoris, essential h [...] he went to the ER in [facility] with chest pain at the [...] Preventative health care Coronary artery disease involving [place] coronary artery of [place] heart without angina pectoris Cannabis abuse, [...] by mouth every evening 90 tablet 3 [facility] [...] 3RD DOSE, CALL 911 100 tablet 3 [place]-3 Fatty Acids (SALMON OIL-1000 PO) CAPS, one [...] was found Confirmed by SYDNI SINGLETARY MD ([id number]) on 06/23/2016 2:08:15 PM LAB RESULTS reviewed [...] He is in class I of the [place] Heart [employer] functional class. On physical examination there are no signs of fl uid overload. 2. Non-critical Coronary artery disease involving [place] coronary a rtery of [place] heart without angina pectoris: A. Normal exercise [...] to go back in 3 days to [place] for an attempt of ablation under general [...] is a normal stable device function. [facility] 5 years.. 5. Lightheadedness [...] this chart may have been created with Triage voice recognition software. Occasi onal wrong-word or [...] 2019 | Monitor | | [address] | Interrogation | | | | | [place], | (Primary Dx); | | | | | [place] [address] | Pacemaker; | | | | | [phone] | Sinoatrial node | | | | | | dysfunction (HCC) | | | | | | with symptomatic | | | | | | bradycardia | +--------+ + + + + | 08/21/ | Implant | Cardiology | Sydni Singletary, | Remote Device | | 2019 | Monitor | | [address] | Interrogation | | | | | [place], | (Primary Dx); | | | | | [place] [address] | Pacemaker; | | | | | [phone] | Sinoatrial node | | | | | | dysfunction (HCC) | | | | | | with symptomatic | | | | | | bradycardia | +--------+ + + + + | 08/21/ | Implant | Cardiology | Sydni Singletary, | Remote Device | | 2019 | Monitor | | MD [address] | Interrogation | | | | | [place], | (Primary Dx); | | | | | [place] [address] | Pacemaker; | | | | | [phone] | Sinoatrial node | | | | | | dysfunction (HCC) | | | | | | with symptomatic | | | | | | bradycardia | +--------+ + + + + | 08/21/ | Implant | Cardiology | Sydni Singletary | Remote Device | | 2019 | Monitor | | MD [address] | Interrogation | | | | | [place], | (Primary Dx); | | | | | [place] [address] | Pacemaker; | | | | | [phone] | Sinoatrial node | | | | | | dysfunction (HCC) | | | | | | with symptomatic | | | | | | bradycardia | +--------+ + + + + | 08/21/ | Implant | Cardiology | Sydni Singletary, | Remote Device | | 2019 | Monitor | | MD [address] | Interrogation | | | | | [place], | (Primary Dx); | | | | | [place] [address] | Pacemaker; | | | | | [phone] | Sinoatrial node | | | | [...] W | | | | | | [place], | | | | | | [place] [address] | | | | | | [phone] | | | | | | | | +--------+ + + + + documented as of this encounter Visit Diagnoses + + | Diagnosis | + + | Ascending thoracic aortic aneurysm (HCC) - Primary Thoracic aneurysm without mention | | of rupture | + + | Coronary artery disease involving [place] coronary artery of [place] heart without | | angina pectoris [...]
--- OUTSIDE RECORDS SUMMARY | ~2020-08-06 | XMS | Encounter Summary ---
Demographics + + + | Address | [address] [place] [address] [address] | | | [place] [address] | + + + | Home Phone [...] [place] | | | | | [address] | | + + + + + Care Team Providers + +------+ + | Care Brass Sorter Name | Role | Phone | [...]
--- OUTSIDE RECORDS SUMMARY | ~2020-08-06 | XMS | Encounter Summary ---
Demographics + + + | Address | [address] | | | [place] [address] | + + + | Home Phone [...] Providers + +------+ + | Care Table Worker Name | Role | Phone | [...] | | | CENTER [address] | [address] | | | | | [place], [place] | [place] [address] | | | | | [address] | [phone] | | | | | [phone] | | | +--------+ + + + [...] + + + +---------+ + + | [place]-3 Fatty | CAPS, one capsule by | [...] might be differe nt from the original. [facility] Moe Sanchez Emergency Department Encounter Note [address] [place], [place] [address] PCP:Kirk French MD [phone] DIAGNOSIS: 1. Bronchitis [...] to go back in 3 days to [place] for an attempt of ablation under general [...] Left Heart Cath, 02/29/2012, LVEF is 65%, [facility] Myocardial Gated Stress Test, 05/25/2009, EF 53 % during rest and 52% during stress. [place], [place]. Persantine Sestamibi Stress Test, 06/14/2008, LVEF is 60%, [facility] 12/25/13, shows noncritical coronary artery disease, mild [...] SERIAL# DATE IMPLANTED GENERATOR Medtronic DDD ADDR01 [id number] 06/14/09 RV LEAD Medtronic Active Bipolar CapSureFix 4076 [id number] 06/14/09 A LEAD Medtronic Active Bipolar CapSurFix 4076 [id number] 06/14/09 Depression with anxiety 12/24/2017 Priority: Medium Coronary artery disease involving [place] dee-ni' coronary artery of tolowa dee-ni' heart without angina pectoris 12/21/2013 Priority: Medium [...] tissue attenuation cannot completely be ruled out. [facility] 12/25/13, shows non critical coronary artery disease, [...] Last Updated: 12/24/2017 Lower back injury (From [facility]) 1981 1985 Hyperlipidemia, mixed Priority: Low Diarrhea [...] 07/26/[address] Angiogram chest w/constrast 05/26/14 [facility] Hypoglycemia 09/20/2012 Bipolar disorder (HCC) Mixed [...] Procedure: COLONOSCOPY; Surgeon: Emmanuel Daniel MD; Location: [facility] MEDICAL PROCEDURE UNIT HARDWARE REMOVAL KNEE SURGERY 2003 meniscus-right LAMINECTOMY 1991 L3-4 LUMBAR DISCECTOMY 1991 L3-4 LUMBAR FUSION 01/2011 6 spine fusions neck fusion 08/10/2012 [place] NECK SURGERY PACEMAKER PLACEMENT 06/14/09 SHOULDER SURGERY 03/22/13 SINUS SURGERY 1997 SPINAL FUSION STOMACH SURGERY UPPER GASTROINTESTINAL ENDOSCOPY N/A 12/24/2017 Procedure: EGD; Surgeon: Emmanuel Daniel MD; Location: [facility] MEDICAL PROCEDURE UNIT VASECTOMY CURRENT MEDICATIONS [...] take 1 tablet by mouth every evening [facility] NATURAL PRODUCTS (OSTEO BI-FLEX/5-LOXIN ADVANCED PO) Take [...] by mouth daily twice daily ONE TOUCH [employer] LANCETS [facility] Check glucose as needed for hypoglycemia PRAVASTATIN [...] were reviewed along with EMS notes and longterm record s if applicable. (See chart for [...] Specialty: Internal Medicine Contact information: Eva DOMINGUEZ [address] [id number] New Prescriptions AZITHROMYCIN (ZITHROMAX) 250 MG TABLET Take 2 tablets by mouth daily x 1 day, then take 1 tablet by mouth daily x 4 days. GUAIFENESIN (ROBITUSSIN) 100 MG/5ML LIQUID Take 10-20 mLs by mouth every 4 hours as nee ded for Cough. Portions of this chart were created with Atlas5D voice recognition software. Inadvertent so und alike substitutions may be present and are unintentional Martell Castillo MD 02/01/18 1442 Molly, Geri Escobar, Student TELECOMMUNICATIONS SPECIALIST - 02/01/2018 1:48 PM PDTPt complains that he has bronchitis type symptoms x 3 d ays with cough and productive sputumElectronically signed by Geri Olivo, Student TELECOMMUNICATIONS SPECIALIST at 1:49 PM PDTdocumented in this encounter Plan of Treatment +--------+ + + + + | Date | Type | Specialty | Care Team | Description | +--------+ + + + + | 08/21/ | Implant | Cardiology | Daljit Singletary, | Remote Device | | 2019 | Monitor | | [address] [place] [address] | Interrogation | | | | | [place], | (Primary Dx); | | | | | [place] [address] | Pacemaker; | | | | | [phone] | Sinoatrial node | | | | | | dysfunction ([facility]) | | | | | | with symptomatic | | | | | | bradycardia | +--------+ + + + + | 08/21/ | Implant | Cardiology | Daljit Singletary, | Remote Device | | 2020 | Monitor | | MD [address] | Interrogation | | | | | [place], | (Primary Dx); | | | | | [place] [address] | Pacemaker; | | | | | [phone] | Sinoatrial node | | | | | | dysfunction (HCC) | | | | | | with symptomatic | | | | | | bradycardia | +--------+ + + + + | 08/21/ | Implant | Cardiology | Daljit Singletary, | Remote Device | | 2019 | Monitor | | MD [address] | Interrogation | | | | | [place], | (Primary Dx); | | | | | [place] [address] | Pacemaker; | | | | | [phone] | Sinoatrial node | | | | | | dysfunction (HCC) | | | | | | with symptomatic | | | | | | bradycardia | +--------+ + + + + | 08/21/ | Implant | Cardiology | Daljit Singletary, | Remote Device | | 2020 | Monitor | | MD [address] | Interrogation | | | | | [place], | (Primary Dx); | | | | | [place] [address] | Pacemaker; | | | | | [phone] | Sinoatrial node | | | | | | dysfunction (HCC) | | | | | | with symptomatic | | | | | | bradycardia | +--------+ + + + + | 08/21/ | Implant | Cardiology | Daljit Singletary, | Remote Device | 2019 | Monitor | | MD [address] [place] | Interrogation | | | | | [place], | (Primary Dx); | | | | | [place] [address] | Pacemaker; | | | | | [phone] | Sinoatrial node | | | | [...] | | | | | | [place], | | | | | | [place] [address] | | | | | | [phone] | | | | | | | [...] | | | ON?03/ | | | 13/201 | | | 8 | | | 12:41? | | | HODGEN | | | , | | | FREDER | | | ICK | | | W?MRN: | | | | | | [id number] | | | [id number] | | | his | | | [...] | | | ecarep | | | [email or web address] | | | m/arian | | | ent/60 | | | [id number] | | | -5586- | | | [...] | | | St. | | | [place] | | | y H. | | [...] | | | St. | | | [place] | | | y H. | | [...] | | | St. | | | [place] | | | y H. | | [...] | | | St. | | | [place] | | | y H. | | [...] | | | St. | | | [place] | | | y | | | [...] | | | ext. | | | [address] | | | or go | | [...] | | | icalte | | | [email or web address] | | | | +---+--------+ documented in [...] | [address] | [place], [place] | [phone] | | [facility] | | [address] | | | - LABORATORY | | [...] [address] | [place] | [phone] | | [facility] | | [address] | | | - LABORATORY | | [...] 10 | 7 - 18 mg/dL | [facility] | | | | | | [facility] | | | | | | MEDICAL | | | | | | CENTER - | | | | | | LABORATORY | | + + + + + + | Creatinine | 0.82 | 0.60 - 1.30 | [facility] | | | | | mg/dL | [facility] | | | | | | MEDICAL | | | | | | CENTER - | | | | | | LABORATORY | | + + + + + + | eGFR, | >60Comment: GLOMERULAR | >=60 | [facility] | | | non- | FILTRATION | mL/min/1.73m2 | [facility] | | | [place] | RATE,ESTIMATED | | MEDICAL | | | | mL/min/1.16b9Lxyp than | | CENTER - | | [...] | | ine Ratio | | | . [place] | | | | [...] + | [facility] | [address] | [place] | [phone] | | [facility] | | [address] | | | - LABORATORY | | [...] [address] | [place] | [phone] | | [facility] | | [address] | | | - LABORATORY | | | | + + + + + documented in this encounter Visit Diagnoses + + | Diagnosis | + + | Bronchitis - Primary Bronchitis, not specified as acute or chronic | + + | Remote Device Interrogation [...]
--- OUTSIDE RECORDS SUMMARY | ~2020-08-06 | XMS | Encounter Summary ---
Demographics + + + | Address | [address] | | | [place] [address] | + + + | Home Phone [...] Team Providers + +------+ + | Care Ion Implant Machine Operator Name | Role | Phone | + +------+ + PCP | Unavailable | + +------+ + Encounter Details +--------+ + + + + | Date | Type | Department | Care Team | Description | +--------+ + + + + | 12/01/ | Hospital | [facility] | | | | 1997 | Encounter | MED CTR EMERGENCY | | | | | | CENTER [address] | | | | | | [place] | | | | | | [address] | | | | | | [phone] | | | +--------+ + + + [...] | Monitor | | MD [address] | Interrogation | | | | | [place], | (Primary Dx); | | | | | [place] [address] | Pacemaker; | | | | | [phone] | Sinoatrial node | | | | | | dysfunction (HCC) | | | | | | with symptomatic | | | | | | bradycardia | +--------+ + + + + | 08/21/ | Implant | Cardiology | Daljit Singletary, | Remote Device | | 2019 | Monitor | | MD [address] | Interrogation | | | | | [place], | (Primary Dx); | | | | | [place] [address] | Pacemaker; | | | | | [phone] | Sinoatrial node | | | | | | dysfunction (HCC) | | | | | | with symptomatic | | | | | | bradycardia | +--------+ + + + + | 08/21/ | Implant | Cardiology | Daljit Singletary, | Remote Device | | 2019 | Monitor | | MD [address] | Interrogation | | | | | [place], | (Primary Dx); | | | | | [place] [address] | Pacemaker; | | | | | [phone] | Sinoatrial node | | | | | | dysfunction (HCC) | | | | | | with symptomatic | | | | | | bradycardia | +--------+ + + + + | 08/21/ | Implant | Cardiology | Daljit Singletary, | Remote Device | | 2019 | Monitor | | MD [address] | Interrogation | | | | | [place], | (Primary Dx); | | | | | [place] [address] | Pacemaker; | | | | | [phone] | Sinoatrial node | | | | | | dysfunction (HCC) | | | | | | with symptomatic | | | | | | bradycardia | +--------+ + + + + | 08/21/ | Implant | Cardiology | Daljit Singletary, | Remote Device | | 2019 | Monitor | | MD [address] | Interrogation | | | | | [place], | (Primary Dx); | | | | | [place] [address] | Pacemaker; | | | | | [phone] | Sinoatrial node | | | | [...] | | | | | | [place] [address] | | | | | | [phone] | | | | | | | | +--------+ + + + + documented as of this encounter Visit Diagnoses Not on filedocumented in this encounter"
--- OUTSIDE RECORDS SUMMARY | ~2020-08-06 | XMS | Encounter Summary ---
Demographics + + + | Address | [address] | | | [place] [address] | + + + | Home Phone [...] Providers + +------+ + | Care Waste Picker Name | Role | Phone | + +------+ + PCP | Unavailable | + +------+ + Encounter Details +--------+ + + + + | Date | Type | Department | Care Team | Description | +--------+ + + + + | 10/13/ | Hospital | [facility] | | | | 2007 | Encounter | MED CTR EMERGENCY | | | | | | CENTER [address] | | | | | | [place] | | | | | | [address] | | | | | | [phone] | | | +--------+ + + + [...] | Monitor | | MD [address] | Interrogation | | | | | [place], | (Primary Dx); | | | | | [place] [address] | Pacemaker; | | | | | [phone] | Sinoatrial node | | | | | | dysfunction (HCC) | | | | | | with symptomatic | | | | | | bradycardia | +--------+ + + + + | 08/21/ | Implant | Cardiology | Daljit Singletary, | Remote Device | | 2019 | Monitor | | MD [address] | Interrogation | | | | | [place], | (Primary Dx); | | | | | [place] [address] | Pacemaker; | | | | | [phone] | Sinoatrial node | | | | | | dysfunction (HCC) | | | | | | with symptomatic | | | | | | bradycardia | +--------+ + + + + | 08/21/ | Implant | Cardiology | Daljit Singletary, | Remote Device | | 2019 | Monitor | | MD [address] | Interrogation | | | | | [place], | (Primary Dx); | | | | | [place] [address] | Pacemaker; | | | | | [phone] | Sinoatrial node | | | | | | dysfunction (HCC) | | | | | | with symptomatic | | | | | | bradycardia | +--------+ + + + + | 08/21/ | Implant | Cardiology | Daljit Singletary, | Remote Device | | 2019 | Monitor | | MD [address] | Interrogation | | | | | [place], | (Primary Dx); | | | | | [place] [address] | Pacemaker; | | | | | [phone] | Sinoatrial node | | | | | | dysfunction (HCC) | | | | | | with symptomatic | | | | | | bradycardia | +--------+ + + + + | 08/21/ | Implant | Cardiology | Daljit Singletary, | Remote Device | | 2019 | Monitor | | MD [address] | Interrogation | | | | | [place], | (Primary Dx); | | | | | [place] [address] | Pacemaker; | | | | | [phone] | Sinoatrial node | | | | [...] | | | | | | [place] [address] | | | | | | [phone] | | | | | | | | +--------+ + + + + documented as of this encounter Visit Diagnoses Not on filedocumented in this encounter"
--- OUTSIDE RECORDS SUMMARY | ~2020-08-06 | XMS | Encounter Summary ---
Demographics + + + | Address | [address] | | | [place] [address] | + + + | Home Phone [...] Providers + +------+ + | Care Pre Owned Sales Consultant Name | Role | Phone [...] + | 01/24/ | Emergency | [facility] | Michael Montoya MD | Chest pain, | | 2017 | | [facility] CTR EM[facility]Y | [address] | unspecified type | | | | CENTER [address] | [place], [place] | (Primary Dx) | | | | [place], [place] | [address] | | | | | [address] | | | | | | [phone] | | | +--------+ + + + [...] + + + +---------+ + + | [place]-3 Fatty | CAPS, one capsule by | [...] history of noncritical coronary artery disease. Haleigh e does have history of thoracic aneurysm as [...] known pacemaker that had a recent in [place] that was working. PAST MEDICAL & SURGICAL [...] take 1 tablet by mouth every evening [employer] (OSTEO BI-FLEX/5-LOXIN ADVANCED PO) [...] by mouth daily twice daily ONE TOUCH [employer] [facility] LANCETS [facility] [...] DISPOSITION: Discharge FINAL IMPRESSION: Chest pain Michael Montoya MD 01/24/17 1345 documente d in this encounter Miscellaneous Notes [...] like he was ran over by a SurDoc i. Pt took [address] over from [place].Electronically signed by MONROE Olivo at 03/2017 12:20 [...] Interrogation | | | | | [place], | (Primary Dx); | | | | | [place] [address] | Pacemaker; | | | | | [phone] | Sinoatrial node | | | | | | dysfunction (HCC) | | | | | | with symptomatic | | | | | | bradycardia | +--------+ + + + + | 08/21/ | Implant | Cardiology | Daljit Singletary, | Remote Device | | 2019 | Monitor | | MD [address] | Interrogation | | | | | [place], | (Primary Dx); | | | | | [place] [address] | Pacemaker; | | | | | [phone] | Sinoatrial node | | | | | | dysfunction (HCC) | | | | | | with symptomatic | | | | | | bradycardia | +--------+ + + + + | 08/21/ | Implant | Cardiology | Daljit Singletary, | Remote Device | | 2019 | Monitor | | MD [address] | Interrogation | | | | | [place], | (Primary Dx); | | | | | [place] [address] | Pacemaker; | | | | | [phone] | Sinoatrial node | | | | | | dysfunction (HCC) | | | | | | with symptomatic | | | | | | bradycardia | +--------+ + + + + | 08/21/ | Implant | Cardiology | SunshineDaljit villarreal, | Remote Device | | 2020 | Monitor | | MD [address] | Interrogation | | | | | [place], | (Primary Dx); | | | | | [place] [address] | Pacemaker; | | | | | [phone] | Sinoatrial node | | | | | | dysfunction (HCC) | | | | | | with symptomatic | | | | | | bradycardia | +--------+ + + + + | 08/21/ | Implant | Cardiology | Daljit Singletary, | Remote Device | | 2019 | Monitor | | MD [address] | Interrogation | | | | | [place], | (Primary Dx); | | | | | [place] [address] | Pacemaker; | | | | | [phone] | Sinoatrial node | | | | [...] [address] | | | | | | [address] [place], | | | | | | [place] [address] | | | | | | [phone] | | | | | | | [...] 12 | 7 - 18 mg/dL | [facility] | | | | | | [facility] | | | | | | MEDICAL | | | | | | CENTER - | | | | | | LABORATORY | | + + + + + + | Creatinine | 0.84 | 0.60 - 1.30 | [facility] | | | | | mg/dL | [facility] | | | | | | MEDICAL | | | | | | CENTER - | | | | | | LABORATORY | | + + + + + + | eGFR, | >60Comment: GLOMERULAR | >=60 | [facility] | | | non- | FILTRATION | mL/min/1.73m2 | [facility] | | | [place] | RATE,ESTIMATED | | MEDICAL | | | | mL/min/1.19k9Zddm than | | CENTER - | | [...] Phosphatase | appended report. These | | MICHELLE | | | | results have [...] + | [facility] | [address] | [place] | [phone] | | [facility] | | [address] | | | - LABORATORY | | [...] Brown Results In - 01/24/2017 1:16 PM [facility] PORTABLE CHEST X-RAY: 01/24/2017 12:28 PM [...] | | | | ANGELA MARADIAGA MD ([id number]) | | | | | | on [...] [address] | [place] | [phone] | | [facility] | | [address] | | | - LABORATORY | | [...] [address] | [place] | [phone] | | [facility] | | [address] | | | - LABORATORY | | [...]
--- OUTSIDE RECORDS SUMMARY | ~2020-08-06 | XMS | Encounter Summary ---
Demographics + + + | Address | [address] | | | [place] [address] | + + + | Home Phone [...] Providers + +------+ + | Care Study Abroad Coordinator Name | Role | Phone | [...] + + | 03/29/ | Telephone | [facility] | Emmanuel Daniel MD | Diarrhea (Adult) | | 2019 | | GASTROENTEROLOGY | [address], [place] | (stomach cramps and | | | | [address] | [address] [place], [place] | liquid stool) | | | | [address] [place], [place] | [address] | | | | | [address] | | | | | | [phone] | | | +--------+ + + + [...] - 0 03/31/2019 9:[address] María kong T4, TTG antibody, gastrin, lipase, VIP, calcitonin, 24-hour urine for [address] scan abdomen and pelvis. These have been ordered. Estrellita laguna to reach patient to notify him of these lab orders. Number temporarily disconnected.E lectronically signed by Kaylynn Copeland RN at 03/31/2019 9:14 AM PDTTeleKailyn Olivarez CMA - 03/29/2019 4:35 PM PDTPatient calls in, states he has had severe stomach cramps this morning and liquid stool this afternoon after eating a sandwich from [employer]. He states he takes the medication that dr. Daniel has asked him too ( Bentyl, Benadryl, metamucil and imodium but nothing is helping, he might have a normal bowel movement about 2 -3 days in a row, and then the diarrhea hits. He asks what should he do. I let patient know that his referral to [facility] was authorized and they should be calling [...] Dx); | | | | | [place] [address] | Pacemaker; | | | | | [phone] | Sinoatrial node | | | | | | dysfunction (HCC) | | | | | | with symptomatic | | | | | | bradycardia | +--------+ + + + + | 08/21/ | Implant | Cardiology | Daljit Singletary, | Remote Device | | 2019 | Monitor | | MD [address] | Interrogation | | | | | [place], | (Primary Dx); | | | | | [place] [address] | Pacemaker; | | | | | [phone] | Sinoatrial node | | | | | | dysfunction ([facility]) | | | | | | with symptomatic | | | | | | bradycardia | +--------+ + + + + | 08/21/ | Implant | Cardiology | Daljit Singletary, | Remote Device | | 2019 | Monitor | | MD [address] | Interrogation | | | | | [place], | (Primary Dx); | | | | | [place] [address] | Pacemaker; | | | | | [phone] | Sinoatrial node | | | | | | dysfunction (HCC) | | | | | | with symptomatic | | | | | | bradycardia | +--------+ + + + + | 08/21/ | Implant | Cardiology | Shaista Singletarypawanotto, | Remote Device | | 2020 | Monitor | | MD [address] | Interrogation | | | | | [place], | (Primary Dx); | | | | | [place] [address] | Pacemaker; | | | | | [phone] | Sinoatrial node | | | | | | dysfunction (HCC) | | | | | | with symptomatic | | | | | | bradycardia | +--------+ + + + + | 08/21/ | Implant | Cardiology | Daljit Singletary, | Remote Device | | 2019 | Monitor | | MD [address] | Interrogation | | | | | [place], | (Primary Dx); | | | | | [place] [address] | Pacemaker; | | | | | [phone] | Sinoatrial node | | | | [...] W | | | | | | [address] [place], | | | | | | [place] [address] | | | | | | [phone] | | | | | | | [...] Abdominal pain, generalized | + + | Remote Device Interrogation [...]
--- OUTSIDE RECORDS SUMMARY | ~2020-08-06 | XMS | Encounter Summary ---
Demographics + + + | Address | [address] | | | [place] [address] | + + + | Home Phone [...] Team Providers + +------+ + | Care Charter Boat Captain Name | Role | Phone [...] + + | 05/03/ | Telephone | [facility] | Kirk French | Medication Orders | | 2019 | | [facility] FABRIZIO | MD Bre[address] | | | | | [address] | [address] | | | | | [address] | [place] [address] | | | | | [place], [place] | [phone] | | | | | [address] | | | | | | [phone] | | | +--------+ + + + [...] Interrogation | | | | | [place], | (Primary Dx); | | | | | [place] [address] | Pacemaker; | | | | | [phone] | Sinoatrial node | | | | | | dysfunction (HCC) | | | | | | with symptomatic | | | | | | bradycardia | +--------+ + + + + | 08/21/ | Implant | Cardiology | Daljit Singletary, | Remote Device | | 2019 | Monitor | | MD [address] | Interrogation | | | | | [place], | (Primary Dx); | | | | | [place] [address] | Pacemaker; | | | | | [phone] | Sinoatrial node | | | | | | dysfunction (HCC) | | | | | | with symptomatic | | | | | | bradycardia | +--------+ + + + + | 08/21/ | Implant | Cardiology | Daljit Singletary, | Remote Device | | 2019 | Monitor | | MD [address] | Interrogation | | | | | [place], | (Primary Dx); | | | | | [place] [address] | Pacemaker; | | | | | [phone] | Sinoatrial node | | | | | | dysfunction ([facility]) | | | | | | with symptomatic | | | | | | bradycardia | +--------+ + + + + | 08/21/ | Implant | Cardiology | Daljit Singletary, | Remote Device | | 2019 | Monitor | | MD [address] | Interrogation | | | | | [place], | (Primary Dx); | | | | | [place] [address] | Pacemaker; | | | | | [phone] | Sinoatrial node | | | | | | dysfunction (HCC) | | | | | | with symptomatic | | | | | | bradycardia | +--------+ + + + + | 08/21/ | Implant | Cardiology | Daljit Singletary, | Remote Device | | 2019 | Monitor | | MD [address] | Interrogation | | | | | [place], | (Primary Dx); | | | | | [place] [address] | Pacemaker; | | | | | [phone] | Sinoatrial node | | | | [...] | | | | | | [place] [address] | | | | | | [phone] | | | | | | | | +--------+ + + + + documented as of this encounter Visit Diagnoses Not on filedocumented in this encounter"
--- OUTSIDE RECORDS SUMMARY | ~2020-08-06 | XMS | Encounter Summary ---
Demographics + + + | Address | [address] | | | [place] [address] | + + + | Home Phone [...] + +------+ + | Care Dry Cleaner Apprentice Name | Role | Phone | [...] | unspecified | MD Jacek | [address] | | | | | type | [address] | [place], | | | | | Unintentiona | [place] | [place] [address] | | | | | l weight | [place], [place] | Phone: | | | | | loss | [address] | [phone] | | | | | Procedures | Phone: | Fax: | | | | | [facility] | [phone] | [phone] | | | | | INTRALUMINAL | Fax: | | | | | | | [phone] | | | | | | ESOPHAGUS-[place] | | | | | | | EUM W/I&R | | | + + + + + + + Encounter Details +--------+ + + + + | Date | Type | Department | Care Team | Description | +--------+ + + + + | 11/10/ | Orders Only | [facility] [place] | HiramDarin | Diarrhea, | | 2019 | | GASTROENTEROLOGY | MD Jacek [address] | unspecified type | | | | [address] | [address] [place] | (Primary Dx); | | | | [address] [place], [place] | [place] [address] | Unintentional weight | | | | [address] | [phone] | loss | | | | [phone] | | | +--------+ + + + [...] documented as of this encounter Progress Notes Lisa Pisano RN - 11/10/2019 8:39 AM PSTDr. Hiram [...] | Pacemaker; | | | | | [phone] | Sinoatrial node | | | | | | dysfunction (HCC) | | | | | | with symptomatic | | | | | | bradycardia | +--------+ + + + + | 08/21/ | Implant | Cardiology | Daljit Singletary, | Remote Device | | 2019 | Monitor | | MD [address] | Interrogation | | | | | [place], | (Primary Dx); | | | | | [place] [address] | Pacemaker; | | | | | [phone] | Sinoatrial node | | | | | | dysfunction ([facility]) | | | | | | with symptomatic | | | | | | bradycardia | +--------+ + + + + | 08/21/ | Implant | Cardiology | Daljit Singletary, | Remote Device | | 2019 | Monitor | | MD [address] | Interrogation | | | | | [place], | (Primary Dx); | | | | | [place] [address] | Pacemaker; | | | | | [phone] | Sinoatrial node | | | | | | dysfunction (HCC) | | | | | | with symptomatic | | | | | | bradycardia | +--------+ + + + + | 08/21/ | Implant | Cardiology | Shaista Singletarypawanotto, | Remote Device | | 2019 | Monitor | | MD [address] | Interrogation | | | | | [place], | (Primary Dx); | | | | | [place] [address] | Pacemaker; | | | | | [phone] | Sinoatrial node | | | | | | dysfunction (HCC) | | | | | | with symptomatic | | | | | | bradycardia | +--------+ + + + + | 08/21/ | Implant | Cardiology | JoshcrispinDaljit villarreal, | Remote Device | | 2019 | Monitor | | MD [address] | Interrogation | | | | | [place], | (Primary Dx); | | | | | [place] [address] | Pacemaker; | | | | | [phone] | Sinoatrial node | | | | [...] W | | | | | | [place], | | | | | | [place] [address] | | | | | | [phone] | | | | | | | [...]
--- OUTSIDE RECORDS SUMMARY | ~2020-08-06 | XMS | Encounter Summary ---
Demographics + + + | Address | [address] | | | [place] [address] | + + + | Home Phone [...] Providers + +------+ + | Care Cushion Cover Inspector Name | Role | Phone | [...] + + | 05/02/ | Telephone | [facility] | Silvia, | Results | | 2020 | | CARDIOLOGY [address] | PARISA [place] [address] | | | | | [place], | [place], | | | | | [place] [address] | [place] [address] | | | | | [phone] | [phone] | | | | | | | [...] RN on 05/03/20 at 11:31 AM elephone [facility] gisela - Janeen Vega ARNP - 05/02/2020 4:58 [...] | Monitor | | MD [address] [place] | Interrogation | | | | | [place], | (Primary Dx); | | | | | [place] [address] | Pacemaker; | | | | | [phone] | Sinoatrial node | | | | | | dysfunction (HCC) | | | | | | with symptomatic | | | | | | bradycardia | +--------+ + + + + | 08/21/ | Implant | Cardiology | Daljit Singletary, | Remote Device | | 2020 | Monitor | | MD [address] [place] | Interrogation | | | | | [place], | (Primary Dx); | | | | | [place] [address] | Pacemaker; | | | | | [phone] | Sinoatrial node | | | | | | dysfunction (HCC) | | | | | | with symptomatic | | | | | | bradycardia | +--------+ + + + + | 08/21/ | Implant | Cardiology | Daljit Singletary, | Remote Device | | 2019 | Monitor | | MD [address] [place] | Interrogation | | | | | [place], | (Primary Dx); | | | | | [place] [address] | Pacemaker; | | | | | [phone] | Sinoatrial node | | | | | | dysfunction (HCC) | | | | | | with symptomatic | | | | | | bradycardia | +--------+ + + + + | 08/21/ | Implant | Cardiology | Daljit Singletary, | Remote Device | | 2019 | Monitor | | MD [address] [place] | Interrogation | | | | | [place], | (Primary Dx); | | | | | [place] [address] | Pacemaker; | | | | | [phone] | Sinoatrial node | | | | | | dysfunction (HCC) | | | | | | with symptomatic | | | | | | bradycardia | +--------+ + + + + | 08/21/ | Implant | Cardiology | Daljit Singletary, | Remote Device | | 2019 | Monitor | | MD [address] [place] | Interrogation | | | | | [facility], | (Primary Dx); | | | | | [place] [address] | Pacemaker; | | | | | [phone] | Sinoatrial node | | | | [...] W | | | | | | [place], | | | | | | [place] [address] | | | | | | [phone] | | | | | | | | +--------+ + + + + documented as of this encounter Visit Diagnoses Not on filedocumented in this encounter"
--- OUTSIDE RECORDS SUMMARY | ~2020-08-06 | XMS | Encounter Summary ---
Demographics + + + | Address | [address] | | | [place] [address] | + + + | Home Phone [...] Providers + +------+ + | Care Nail Setter Name | Role | Phone | [...] 2020 | | CARDIOLOGY [address] | JaneenPARISA [address] | and swelling) | | | | [place], | [place], | | | | | [place] [address] | [place] [address] | | | | | [phone] | [phone] | | | | | | | [...] | Monitor | | MD [address] [place] | Interrogation | | | | | [place], | (Primary Dx); | | | | | [place] [address] | Pacemaker; | | | | | [phone] | Sinoatrial node | | | | | | dysfunction (HCC) | | | | | | with symptomatic | | | | | | bradycardia | +--------+ + + + + | 08/21/ | Implant | Cardiology | Daljit Singletary, | Remote Device | | 2019 | Monitor | | MD [address] [place] | Interrogation | | | | | [place], | (Primary Dx); | | | | | [place] [address] | Pacemaker; | | | | | [phone] | Sinoatrial node | | | | | | dysfunction (HCC) | | | | | | with symptomatic | | | | | | bradycardia | +--------+ + + + + | 08/21/ | Implant | Cardiology | Daljit Singletary, | Remote Device | | 2019 | Monitor | | MD [address] [place] | Interrogation | | | | | [place], | (Primary Dx); | | | | | [place] [address] | Pacemaker; | | | | | [phone] | Sinoatrial node | | | | | | dysfunction (HCC) | | | | | | with symptomatic | | | | | | bradycardia | +--------+ + + + + | 08/21/ | Implant | Cardiology | Daljit Singletary, | Remote Device | | 2019 | Monitor | | MD [address] [place] | Interrogation | | | | | [place], | (Primary Dx); | | | | | [place] [address] | Pacemaker; | | | | | [phone] | Sinoatrial node | | | | | | dysfunction (HCC) | | | | | | with symptomatic | | | | | | bradycardia | +--------+ + + + + | 08/21/ | Implant | Cardiology | Daljit Singletary, | Remote Device | | 2019 | Monitor | | MD [address] [place] | Interrogation | | | | | [place], | (Primary Dx); | | | | | [place] [address] | Pacemaker; | | | | | [phone] | Sinoatrial node | | | | [...] | | | | | | [place] [address] | | | | | | [phone] | | | | | | | | +--------+ + + + + documented as of this encounter Visit Diagnoses Not on filedocumented in this encounter
--- OUTSIDE RECORDS SUMMARY | ~2020-08-06 | XMS | Encounter Summary ---
Demographics + + + | Address | [address] | | | [place] [address] | + + + | Home Phone [...] Providers + +------+ + | Care Appeals Examiner Name | Role | Phone | [...] | MED [facility] | MD [address] | | | | | IMAGING [address] | [address] [place] | | | | | [address] [place] | [place] [address] | | | | | [place] [address] | | | | | | [phone] | | | +--------+ + + + [...] | | 2019 | Monitor | | [place] [address] [facility] | Interrogation | | | | | [place], | (Primary Dx); | | | | | [place] [address] | Pacemaker; | | | | | [phone] | Sinoatrial node | | | | | | dysfunction ([facility]) | | | | | | with symptomatic | | | | | | bradycardia | +--------+ + + + + | 08/21/ | Implant | Cardiology | Daljit Singletary, | Remote Device | | 2019 | Monitor | | MD [address] [place] | Interrogation | | | | | [place], | (Primary Dx); | | | | | [place] [address] | Pacemaker; | | | | | [phone] | Sinoatrial node | | | | | | dysfunction (HCC) | | | | | | with symptomatic | | | | | | bradycardia | +--------+ + + + + | 08/21/ | Implant | Cardiology | Daljit Singletary, | Remote Device | | 2019 | Monitor | | MD [address] [place] | Interrogation | | | | | [place], | (Primary Dx); | | | | | [place] [address] | Pacemaker; | | | | | [phone] | Sinoatrial node | | | | | | dysfunction (HCC) | | | | | | with symptomatic | | | | | | bradycardia | +--------+ + + + + | 08/21/ | Implant | Cardiology | Daljit Singletary, | Remote Device | | 2020 | Monitor | | MD [address] [place] | Interrogation | | | | | [place], | (Primary Dx); | | | | | [place] [address] | Pacemaker; | | | | | [phone] | Sinoatrial node | | | | | | dysfunction (HCC) | | | | | | with symptomatic | | | | | | bradycardia | +--------+ + + + + | 08/21/ | Implant | Cardiology | Daljit Singletary, | Remote Device | 2019 | Monitor | | [address] [place] | Interrogation | | | | | [place], | (Primary Dx); | | | | | [place] [address] | Pacemaker; | | | | | [phone] | Sinoatrial node | | | | [...] | | | | | | [place] [address] | | | | | | [phone] | | | | | | | [...]
--- OUTSIDE RECORDS SUMMARY | ~2020-08-06 | XMS | Encounter Summary ---
Demographics + + + | Address | [address] | | | [place] [address] | + + + | Home Phone [...] Team Providers + +------+ + | Care Galley Boy Name | Role | Phone | + [...] + + | 12/23/ | Telephone | [facility] | Emmanuel Daniel MD | Other (Question | | 2018 | | GASTROENTEROLOGY | [address] | about prep for | | | | [address] | [address] | procedure) | | | | [address] | [id number] | | | | | [address] | | | | | | [phone] | | | +--------+ + + + [...] Kaylynn Copeland RN - 12/24/2017 8:15 AM PSTLeft message return ing patient's call. P STTelephone Encounter - Nataly Pratt - 12/23/2017 4:01 PM PSTPatient called to speak [facility] tomorrow's procedure. Please call patient back at home number [phone]. dokareen ented in this encounter Plan of Treatment +--------+ + + + + | Date | Type | Specialty | Care Team | Description | +--------+ + + + + | 08/21/ | Implant | Cardiology | Daljit Singletary, | Remote Device | | 2019 | Monitor | | MD [address] | Interrogation | | | | | [place], | (Primary Dx); | | | | | [place] [address] | Pacemaker; | | | | | [phone] | Sinoatrial node | | | | | | dysfunction (HCC) | | | | | | with symptomatic | | | | | | bradycardia | +--------+ + + + + | 08/21/ | Implant | Cardiology | Daljit Singletary, | Remote Device | | 2019 | Monitor | | MD [address] | Interrogation | | | | | [place], | (Primary Dx); | | | | | [place] [address] | Pacemaker; | | | | | [phone] | Sinoatrial node | | | | | | dysfunction (HCC) | | | | | | with symptomatic | | | | | | bradycardia | +--------+ + + + + | 08/21/ | Implant | Cardiology | Daljit Singletary, | Remote Device | | 2019 | Monitor | | MD [address] | Interrogation | | | | | [place], | (Primary Dx); | | | | | [place] [address] | Pacemaker; | | | | | [phone] | Sinoatrial node | | | | | | dysfunction (HCC) | | | | | | with symptomatic | | | | | | bradycardia | +--------+ + + + + | 08/21/ | Implant | Cardiology | Daljit Singletary, | Remote Device | | 2019 | Monitor | | MD [address] | Interrogation | | | | | [place], | (Primary Dx); | | | | | [place] [address] | Pacemaker; | | | | | [phone] | Sinoatrial node | | | | | | dysfunction (HCC) | | | | | | with symptomatic | | | | | | bradycardia | +--------+ + + + + | 08/21/ | Implant | Cardiology | Daljit Singletary, | Remote Device | | 2020 | Monitor | | MD [address] | Interrogation | | | | | [place], | (Primary Dx); | | | | | [place] [address] | Pacemaker; | | | | | [phone] | Sinoatrial node | | | | [...] | | | | | | [place] [address] | | | | | | [phone] | | | | | | | | +--------+ + + + + documented as of this encounter Visit Diagnoses Not on filedocumented in this encounter"
--- OUTSIDE RECORDS SUMMARY | ~2020-08-06 | XMS | Encounter Summary ---
Demographics + + + | Address | [address] | | | [place] [address] | + + + | Home Phone [...] Providers + +------+ + | Care Program Coordinator Name | Role | Phone | + +------+ + | Kirk French MD | PCP | | + +------+ + Encounter Details +--------+ + + + + | Date | Type | Department | Care Team | Description | +--------+ + + + + | 01/19/ | Hospital | [facility] [place] [place] [facility] | Conversion | Pain | | 2017 | Encounter | CONVERSION [address] | Transaction, | | | | | [address] | Provider Unknown | | | | | [place], [place] | [phone] | | | | | [address] | | | | | | [phone] | | | +--------+ + + + [...] | | | | | [address], | (Primary Dx); | | | | | [place] [address] | Pacemaker; | | | | | [phone] | Sinoatrial node | | | | [...] | | | | | [place], | (Primary Dx); | | | | | [place] [address] | Pacemaker; | | | | | [phone] | Sinoatrial node | | | | [...] | | | | | [place], | (Primary Dx); | | | | | [place] [address] | Pacemaker; | | | | | [phone] | Sinoatrial node | | | | [...] | | | | | [place], | (Primary Dx); | | | | | [place] [address] | Pacemaker; | | | | | [phone] | Sinoatrial node | | | | [...] | | | | | [place], | (Primary Dx); | | | | | [place] [address] | Pacemaker; | | | | | [phone] | Sinoatrial node | | | | [...] | | | | | | [place], | | | | | | [place] [address] | | | | | | [phone] | | | | | | | [...]
--- OUTSIDE RECORDS SUMMARY | ~2020-08-06 | XMS | Encounter Summary ---
Demographics + + + | Address | [address] | | | [place] [address] | + + + | Home Phone [...] Team Providers + +------+ + | Care Balance Weigher Name | Role | Phone | [...] | 01/30/ | Telephone | [facility] [place] | SunshinecherelleDaljit, | Other | | 2019 | | CARDIOLOGY [address] | [address] | | | | | [address] [place], | [place], | | | | | [place] [address] | [place] [address] | | | | | [phone] | | | | | | | [...] AM PDTStop Pravastatin. elephone Encounter - Dileep eNgrete RN - 01/30/2019 4:56 PM PDTPatient notified. Is he suppose to be on both Lipitor and pravas tatin? elephone E jasmeetunter - Daljit Singletary MD - 01/30/2019 4:14 [...] Interrogation | | | | | [facility] [place], | (Primary Dx); | | | | | [place] [address] | Pacemaker; | | | | | [phone] | Sinoatrial node | | | | | | dysfunction ([facility]) | | | | | | with symptomatic | | | | | | bradycardia | +--------+ + + + + | 08/21/ | Implant | Cardiology | Daljit Singletary | Remote Device | | 2019 | Monitor | | MD [address] | Interrogation | | | | | [facility], | (Primary Dx); | | | | | [place] [address] | Pacemaker; | | | | | [phone] | Sinoatrial node | | | | | | dysfunction (HCC) | | | | | | with symptomatic | | | | | | bradycardia | +--------+ + + + + | 08/21/ | Implant | Cardiology | Daljit Singletary, | Remote Device | | 2019 | Monitor | | MD [address] | Interrogation | | | | | [facility], | (Primary Dx); | | | | | [place] [address] | Pacemaker; | | | | | [phone] | Sinoatrial node | | | | | | dysfunction (HCC) | | | | | | with symptomatic | | | | | | bradycardia | +--------+ + + + + | 08/21/ | Implant | Cardiology | Daljit Singletary, | Remote Device | | 2019 | Monitor | | MD [address] | Interrogation | | | | | [facility], | (Primary Dx); | | | | | [place] [address] | Pacemaker; | | | | | [phone] | Sinoatrial node | | | | | | dysfunction (HCC) | | | | | | with symptomatic | | | | | | bradycardia | +--------+ + + + + | 08/21/ | Implant | Cardiology | Sunshinecherelle Shaistapawanotto, | Remote Device | | 2019 | Monitor | | MD [address] | Interrogation | | | | | [address] [place], | (Primary Dx); | | | | | [place] [address] | Pacemaker; | | | | | [phone] | Sinoatrial node | | | | [...] | | | | | | [address] [place], | | | | | | [place] [address] | | | | | | [phone] | | | | | | | [...] 05/02/2019, Expires: | | | | | lumbee coronary | 01/30/2020 | | | | [...] 05/02/2019, Expires: | | | | | lumbee coronary | 01/31/2020 | | | | [...] lumbee heart without | | angina pectoris - [...]
--- OUTSIDE RECORDS SUMMARY | ~2020-08-06 | XMS | Encounter Summary ---
Demographics + + + | Address | [address] | | | [place] [address] | + + + | Home Phone [...] Providers + +------+ + | Care Manager Operations Research Name | Role | Phone | [...] | | | | Procedures | | [place], | | | | | [place] | | [place] [address] | | | | | CYSTO/URETER | [...] + + | 04/13/ | Hospital | [facility] | Matthew Uriarte | Preoperative | | 2019 | Encounter | MED CTR OR INTRA OP | MD Tawanna [address] | clearance (Primary | | | | [address] | [address] | Dx); Left ureteral | | | | CHRISTOPH Nguyen | [place], [place] | calculus; Kidney | | | | [address] | [address] | stones | | | | [phone] | [phone] | | | | | | | [...] Care Everywhere.Kidney Stones, Treating: Ureteroscopic Stone Removal (Guamanian)Stents, Ureteral (Guamanian)documented in this encounter Medications at Time of [...] + + + +---------+ + + | [place]-3 Fatty | CAPS, one capsule by | [...] | | | | | | | campo coronary | | | | | | | artery of campo | | | | | | | [...] signed by: Matthew Uriarte MD, 04/13/2019 8:09 [facility] Jaron Galaviz MD - 04/07/2019 9:45 [...] treated. 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 Pacemaker; Qwilrtronic Peptic ulcer disease Premature ventricular contraction [facility] care 06/26/2013 LAST PSA:12/16/2010 RESULT:0.14 [...] ABLATION Bilateral 04/03/2013 x3 Laser APPENDECTOMY 2004 [facility] CARDIAC CATHERIZATION 12/25/13 Left CARDIAC CATHERIZATION N/A 01/25/2019 Procedure: CV LHC; Surgeon: Daljit Singletary MD; Location: [facility] CV LAB CARDIAC CATHERIZATION N/A 01/25/2019 Procedure: CV Cor Angio; Surgeon: Daljit Singletary MD; Location: [facility] CV LAB COLONOSCOPY N/A 12/24/2017 Procedure: COLONOSCOPY; Surgeon: Emmanuel Daniel MD; Location: [facility] MEDICAL PROCEDURE UNIT COLONOSCOPY N/A 01/05/2019 Procedure: COLONOSCOPY; Surgeon: Emmanuel Daniel MD; Location: [facility] MEDICAL PROCEDURE UNIT EGD 12/24/2017 [...] Procedure: EGD; Surgeon: Emmanuel Daniel MD; Location: [facility] MEDICAL PROCEDURE UNIT UPPER GASTROINTESTINAL ENDOSCOPY N/A 01/05/2019 Procedure: EGD; Surgeon: Emmanuel Daniel MD; Location: [facility] MEDICAL PROCEDURE UNIT VASECTOMY Family History: [...] 911, Disp: 100 ta blet, Rfl: 3 [place]-3 Fatty Acids (SALMON OIL-1000 PO), CAPS, one capsule by mouth daily twice daily , Disp: , Rfl: ondansetron (ZOFRAN ODT) 4 mg disintegrating tablet, Take 4 mg by mouth., Disp: , Rfl: ONE TOUCH DELICA LANCETS [facility], Check glucose as needed for hypoglycemia, Disp: [...] have not thoroughly proofread this note, and facilities operator errors are very likely to occur. CC: Kirk French MD documented in this encounter Miscellaneous Notes Op Note - Matthew Uriarte MD - 04/13/2019 1:03 PM PDTOperative Note Pt. Name/Age/: Moe Sanchez 59 y.o. 1960 [facility]. Record Number: [id number] Date of admission: 04/13/2019 Date of Operation/Procedure: 04/13/2019 Preoperative Diagnosis: Kidney stone Postoperative Diagnosis: same Surgeon: Matthew Uriarte MD Business Center Attendant(s): none Anesthesia Provider(s): Anesthesiologist: Jay Benjamin MD [...] leave strings on the stent. A 6 Azeri variable length stent was then placed over [...] Electronically Signed by: Matthew Uriarte, 04/13/2019 13:04 [facility] documented in this encounter Plan of Treatment +--------+ + + + + | Date | Type | Specialty | Care Team | Description | +--------+ + + + + | 08/21/ | Implant | Cardiology | Daljit Singletary, | Remote Device | | 2019 | Monitor | | MD [address] | Interrogation | | | | | [place], | (Primary Dx); | | | | | [place] [address] | Pacemaker; | | | | | [phone] | Sinoatrial node | | | | | | dysfunction (HCC) | | | | | | with symptomatic | | | | | | bradycardia | +--------+ + + + + | 08/21/ | Implant | Cardiology | Daljit Singletary, | Remote Device | | 2019 | Monitor | | MD [address] | Interrogation | | | | | [place], | (Primary Dx); | | | | | [place] [address] | Pacemaker; | | | | | [phone] | Sinoatrial node | | | | | | dysfunction (HCC) | | | | | | with symptomatic | | | | | | bradycardia | +--------+ + + + + | 08/21/ | Implant | Cardiology | Daljit Singletary, | Remote Device | | 2020 | Monitor | | MD [address] | Interrogation | | | | | [place], | (Primary Dx); | | | | | [place] [address] | Pacemaker; | | | | | [phone] | Sinoatrial node | | | | | | dysfunction (HCC) | | | | | | with symptomatic | | | | | | bradycardia | +--------+ + + + + | 08/21/ | Implant | Cardiology | Daljit Singletary, | Remote Device | | 2019 | Monitor | | MD [address] | Interrogation | | | | | [place], | (Primary Dx); | | | | | [place] [address] | Pacemaker; | | | | | [phone] | Sinoatrial node | | | | | | dysfunction (HCC) | | | | | | with symptomatic | | | | | | bradycardia | +--------+ + + + + | 08/21/ | Implant | Cardiology | Daljit Singletary, | Remote Device | | 2019 | Monitor | | MD [address] | Interrogation | | | | | [place], | (Primary Dx); | | | | | [place] [address] | Pacemaker; | | | | | [phone] | Sinoatrial node | | | | [...] | | | | | | [place], | | | | | | [place] [address] | | | | | | [phone] | | | | | | | [...] [facility] | | | | | | at:[phone]. | | | | + + + [...] | REFERENCE LAB | | RAUL Emmanuel [id number] Bat Boy/Girl: Yeny Rios MD, Phone: | ARSH CASTANON | | [phone] | | + + + + + + + + | Performing | Address | City/State/Zipcode | Phone Number | | Organization | | | | + + + + + | REFERENCE LAB | [address] | [place], [place] | [phone] | | [facility] | Drive [facility] | [address] | | + + + + + [...] [address] | [place] | [phone] | | [facility] | | [address] | | | - LABORATORY | | [...] + | [facility] | [address] | [place] | [phone] | | [facility] | | [address] | | | - LABORATORY | | [...] [address] | [place] | [phone] | | [facility] | | [address] | | | - LABORATORY | | [...] + | [facility] | [address] | [place] | [phone] | | [facility] | | [address] | | | - LABORATORY | | [...] mL/min/1.73m2 | [facility] | | | [place] | RATE,ESTIMATED | | MEDICAL | | | | mL/min/1.87z4Kwjc than | | CENTER - | | [...] ST. | [address] | [place], [place] | [phone] | | [facility] | | [address] | | | - LABORATORY | | [...] glucose < 50, | | | Starting [facility] 04/13/19 at 0634, | | | [...] | | | | | | | fkossn-cik-egddf use of at least | | | [...] day), | | | First dose on [facility] 04/13/19 at | | | 2030, [...]
--- OUTSIDE RECORDS SUMMARY | ~2020-08-06 | XMS | Encounter Summary ---
Demographics + + + | Address | [address] | | | [place] [address] | + + + | Home Phone [...] Team Providers + +------+ + | Care Ladies' Hat Trimmer Name | Role | Phone | [...] [address] | | | | | | [place], [place] | (Fax) | | | | | [address] | | | | | | [phone] | | | +--------+ + + + [...] Interrogation | | | | | [place], | (Primary Dx); | | | | | [place] [address] | Pacemaker; | | | | | [phone] | Sinoatrial node | | | | [...] Interrogation | | | | | [place], | (Primary Dx); | | | | | [place] [address] | Pacemaker; | | | | | [phone] | Sinoatrial node | | | | [...] Interrogation | | | | | [place], | (Primary Dx); | | | | | [place] [address] | Pacemaker; | | | | | [phone] | Sinoatrial node | | | | [...] Interrogation | | | | | [place], | (Primary Dx); | | | | | [place] [address] | Pacemaker; | | | | | [phone] | Sinoatrial node | | | | [...] Interrogation | | | | | [place], | (Primary Dx); | | | | | [place] [address] | Pacemaker; | | | | | [phone] | Sinoatrial node | | | | [...] | | | | | | [place] [address] | | | | | | [phone] | | | | | | | | +--------+ + + + + documented as of this encounter Visit Diagnoses Not on filedocumented in this encounter"
--- OUTSIDE RECORDS SUMMARY | ~2020-08-06 | XMS | Encounter Summary ---
Demographics + + + | Address | [address] | | | [place] [address] | + + + | Home Phone [...] Team Providers + +------+ + | Care Release Of Information Specialist Name | Role | Phone | + +------+ + | Michael Amanda DO | PCP | | + +------+ + Encounter Details +--------+ + + + + | Date | Type | Department | Care Team | Description | +--------+ + + + + | 05/11/ | Hospital | [facility] | Conversion | Lumbago; | | 2013 | Encounter | [facility] XRAY | Transaction, | Postlaminectomy | | | | [address] | Provider Unknown | syndrome, cervical | | | | [place], [place] | | region; Cervicalgia | | | | [address] | (Fax) | | | | | [phone] | | | +--------+ + + + [...] + + + +---------+ + + | [place]-3 Fatty | CAPS, one capsule by [...] 1147 Date of Service: 05/11/141145 Status: Signed Meat Specialist: Christine Mcgraw Report called to Brittany morejon [...] Interrogation | | | | | [place], | (Primary Dx); | | | | | [place] [address] | Pacemaker; | | | | | [phone] | Sinoatrial node | | | | | | dysfunction (HCC) | | | | | | with symptomatic | | | | | | bradycardia | +--------+ + + + + | 08/21/ | Implant | Cardiology | Daljit Singletary, | Remote Device | | 2019 | Monitor | | [address] | Interrogation | | | | | [place], | (Primary Dx); | | | | | [place] [address] | Pacemaker; | | | | | [phone] | Sinoatrial node | | | | | | dysfunction (HCC) | | | | | | with symptomatic | | | | | | bradycardia | +--------+ + + + + | 08/21/ | Implant | Cardiology | Daljit Singletary, | Remote Device | | 2019 | Monitor | | MD [address] | Interrogation | | | | | [place], | (Primary Dx); | | | | | [place] [address] | Pacemaker; | | | | | [phone] | Sinoatrial node | | | | | | dysfunction (HCC) | | | | | | with symptomatic | | | | | | bradycardia | +--------+ + + + + | 08/21/ | Implant | Cardiology | Daljit Singletary, | Remote Device | | 2020 | Monitor | | MD [address] | Interrogation | | | | | [place], | (Primary Dx); | | | | | [place] [address] | Pacemaker; | | | | | [phone] | Sinoatrial node | | | | | | dysfunction (HCC) | | | | | | with symptomatic | | | | | | bradycardia | +--------+ + + + + | 08/21/ | Implant | Cardiology | Daljit Singletary, | Remote Device | | 2019 | Monitor | | [address] [place] | Interrogation | | | | | [place], | (Primary Dx); | | | | | [place] [address] | Pacemaker; | | | | | [phone] | Sinoatrial node | | | | [...] | | | | | [place], | | | | | | [place] [address] | | | | | | [phone] | | | | | | | [...] + + | Cervicalgia | + + | Remote Device [...]
--- OUTSIDE RECORDS SUMMARY | ~2020-08-06 | XMS | Encounter Summary ---
Demographics + + + | Address | [address] | | | [place] [address] | + + + | Home Phone [...] Providers + +------+ + | Care Director Product Management Name | Role | Phone | [...] | 06/23/ | Procedure | [facility] | Daljit Singletary, | Pacemaker | | 2016 | visit | CARDIOLOGY [address] | [address] | reprogramming/check | | | | [place], | [place], | DO NOT DELETE | | | | [place] [address] | [place] [address] | (Primary Dx); | | | | [phone] | [phone] | Sinoatrial node | | | | | | dysfunction ([facility]) | | | | | | [...] Interrogation | | | | | [place], | (Primary Dx); | | | | | [place] [address] | Pacemaker; | | | | | [phone] | Sinoatrial node | | | | | | dysfunction (HCC) | | | | | | with symptomatic | | | | | | bradycardia | +--------+ + + + + | 08/21/ | Implant | Cardiology | Daljit Singletary, | Remote Device | | 2019 | Monitor | | MD [address] | Interrogation | | | | | [place], | (Primary Dx); | | | | | [place] [address] | Pacemaker; | | | | | [phone] | Sinoatrial node | | | | | | dysfunction (HCC) | | | | | | with symptomatic | | | | | | bradycardia | +--------+ + + + + | 08/21/ | Implant | Cardiology | Daljit Singletary, | Remote Device | | 2019 | Monitor | | MD [address] | Interrogation | | | | | [place], | (Primary Dx); | | | | | [place] [address] | Pacemaker; | | | | | [phone] | Sinoatrial node | | | | | | dysfunction (HCC) | | | | | | with symptomatic | | | | | | bradycardia | +--------+ + + + + | 08/21/ | Implant | Cardiology | Daljit Singletary, | Remote Device | | 2019 | Monitor | | MD [address] | Interrogation | | | | | [place], | (Primary Dx); | | | | | [place] [address] | Pacemaker; | | | | | [phone] | Sinoatrial node | | | | [...] Interrogation | | | | | [place], | (Primary Dx); | | | | | [place] [address] | Pacemaker; | | | | | [phone] | Sinoatrial node | | | | [...] W | | | | | | [place], | | | | | | [place] [address] | | | | | | [phone] | | | | | | | [...]
--- OUTSIDE RECORDS SUMMARY | ~2020-08-06 | XMS | Encounter Summary ---
Demographics + + + | Address | [address] | | | [place] [address] | + + + | Home Phone [...] Providers + +------+ + | Care Film Color Tester Name | Role | Phone | + +------+ + | Kirk French MD | PCP | | + +------+ + Reason for Visit + +--------+ + | Reason | Onset | Comments | | | Date | | + +--------+ + | Case Management | 04/11/ | referral from [facility] | | | 2018 | | + +--------+ + Encounter Details +--------+ + + + + | Date | Type | Department | Care Team | Description | +--------+ + + + + | 04/11/ | Telephone | [facility] | An Wang, | Case Management | | 2019 | | MED CTR CASE | RN | (referral from [facility]) | | | | MANAGEMENT [address] | | | | | | [place], | | | | | | [place] [address] | | | | | | [phone] | | | +--------+ + + + [...] encounter Miscellaneous Notes Telephone Encounter - An Wang RN - 04/11/2019 3:01 PM PDTOutpatient Case Managem ent: Referral from [facility] This gentleman is scheduled for [...] we could suggest to an d from [place]. Can you look into this and suggest any transportation options? I was not able to talk to Amilcar. I talked to his support person Geraldine Espino (she will be with Amilcar for this procedure.. Two options: Free transportation service via [employer]: [phone]. They have transportat ion times available that [...] Dx); | | | | | [place] [address] | Pacemaker; | | | | | [phone] | Sinoatrial node | | | | | | dysfunction (HCC) | | | | | | with symptomatic | | | | | | bradycardia | +--------+ + + + + | 08/21/ | Implant | Cardiology | Daljit Singletary, | Remote Device | | 2019 | Monitor | | MD [address] | Interrogation | | | | | [place], | (Primary Dx); | | | | | [place] [address] | Pacemaker; | | | | | [phone] | Sinoatrial node | | | | | | dysfunction (HCC) | | | | | | with symptomatic | | | | | | bradycardia | +--------+ + + + + | 08/21/ | Implant | Cardiology | Daljit Singletary, | Remote Device | | 2019 | Monitor | | MD [address] | Interrogation | | | | | [place], | (Primary Dx); | | | | | [place] [address] | Pacemaker; | | | | | [phone] | Sinoatrial node | | | | | | dysfunction (HCC) | | | | | | with symptomatic | | | | | | bradycardia | +--------+ + + + + | 08/21/ | Implant | Cardiology | Daljit Singletary, | Remote Device | | 2019 | Monitor | | MD [address] | Interrogation | | | | | [place], | (Primary Dx); | | | | | [place] [address] | Pacemaker; | | | | | [phone] | Sinoatrial node | | | | [...] Dx); | | | | | [place] [address] | Pacemaker; | | | | | [phone] | Sinoatrial node | | | | [...] W | | | | | | [place], | | | | | | [place] [address] | | | | | | [phone] | | | | | | | | +--------+ + + + + documented as of this encounter Visit Diagnoses Not on filedocumented in this encounter"
--- OUTSIDE RECORDS SUMMARY | ~2020-08-06 | XMS | Encounter Summary ---
Demographics + + + | Address | [address] | | | [place] [address] | + + + | Home Phone [...] Team Providers + +------+ + | Care Rice Milling Supervisor Name | Role | Phone | [...] + + | 07/01/ | Telephone | [facility] | AnshumarianateshaDaljit, | Other (EK) | | 2018 | | CARDIOLOGY [address] | [address] | | | | | [place], | [place], | | | | | [place] [address] | [place] [address] | | | | | [phone] | [phone] | | | | | | | [...] | 08/21/ | Implant | Cardiology | Wong[place], Suwong, | Remote Device | | 2019 | Monitor | | MD [address] | Interrogation | | | | | [place], | (Primary Dx); | | | | | [place] [address] | Pacemaker; | | | | | [phone] | Sinoatrial node | | | | | | dysfunction (HCC) | | | | | | with symptomatic | | | | | | bradycardia | +--------+ + + + + | 08/21/ | Implant | Cardiology | Daljit Singletary, | Remote Device | | 2019 | Monitor | | MD [address] | Interrogation | | | | | [place], | (Primary Dx); | | | | | [place] [address] | Pacemaker; | | | | | [phone] | Sinoatrial node | | | | | | dysfunction (HCC) | | | | | | with symptomatic | | | | | | bradycardia | +--------+ + + + + | 08/21/ | Implant | Cardiology | Daljit Singletary, | Remote Device | | 2020 | Monitor | | MD [address] | Interrogation | | | | | [place], | (Primary Dx); | | | | | [place] [address] | Pacemaker; | | | | | [phone] | Sinoatrial node | | | | | | dysfunction (HCC) | | | | | | with symptomatic | | | | | | bradycardia | +--------+ + + + + | 08/21/ | Implant | Cardiology | Daljit Singletary, | Remote Device | | 2019 | Monitor | | MD [address] | Interrogation | | | | | [place], | (Primary Dx); | | | | | [place] [address] | Pacemaker; | | | | | [phone] | Sinoatrial node | | | | | | dysfunction (HCC) | | | | | | with symptomatic | | | | | | bradycardia | +--------+ + + + + | 08/21/ | Implant | Cardiology | Daljit Singletary, | Remote Device | | 2019 | Monitor | | MD [address] | Interrogation | | | | | [place], | (Primary Dx); | | | | | [place] [address] | Pacemaker; | | | | | [phone] | Sinoatrial node | | | | [...] | | | | | | [place] [address] | | | | | | [phone] | | | | | | | | +--------+ + + + + documented as of this encounter Visit Diagnoses Not on filedocumented in this encounter"
--- OUTSIDE RECORDS SUMMARY | ~2020-08-06 | XMS | Encounter Summary ---
Demographics + + + | Address | [address] | | | [place] [address] | + + + | Home Phone [...] Team Providers + +------+ + | Care Verifier Name | Role | Phone | + [...] | CARDIOLOGY [address] | MD [address] [place] | | | | | [place], | [place], | | | | | [place] [address] | [place] [address] | | | | | [phone] | [phone] | | | | | | | [...] Monitor | | MD [address] [place] | Interrogation | | | | | [place], | (Primary Dx); | | | | | [place] [address] | Pacemaker; | | | | | [phone] | Sinoatrial node | | | | | | dysfunction ([facility]) | | | | | | with symptomatic | | | | | | bradycardia | +--------+ + + + + | 08/21/ | Implant | Cardiology | Daljit Singletary, | Remote Device | | 2019 | Monitor | | MD [address] [place] | Interrogation | | | | | [place], | (Primary Dx); | | | | | [place] [address] | Pacemaker; | | | | | [phone] | Sinoatrial node | | | | | | dysfunction (HCC) | | | | | | with symptomatic | | | | | | bradycardia | +--------+ + + + + | 08/21/ | Implant | Cardiology | Daljit Singletary, | Remote Device | | 2019 | Monitor | | MD [address] [place] | Interrogation | | | | | [place], | (Primary Dx); | | | | | [place] [address] | Pacemaker; | | | | | [phone] | Sinoatrial node | | | | | | dysfunction (HCC) | | | | | | with symptomatic | | | | | | bradycardia | +--------+ + + + + | 08/21/ | Implant | Cardiology | Daljit Singletary, | Remote Device | | 2019 | Monitor | | MD [address] [place] | Interrogation | | | | | [place], | (Primary Dx); | | | | | [place] [address] | Pacemaker; | | | | | [phone] | Sinoatrial node | | | | | | dysfunction (HCC) | | | | | | with symptomatic | | | | | | bradycardia | +--------+ + + + + | 08/21/ | Implant | Cardiology | Daljit Singletary, | Remote Device | 2019 | Monitor | | MD [address] [place] | Interrogation | | | | | [place], | (Primary Dx); | | | | | [place] [address] | Pacemaker; | | | | | [phone] | Sinoatrial node | | | | [...] | | | | | | [place], | | | | | | [place] [address] | | | | | | [phone] | | | | | | | | +--------+ + + + + documented as of this encounter Visit Diagnoses Not on filedocumented in this encounter"
--- OUTSIDE RECORDS SUMMARY | ~2020-08-06 | XMS | Encounter Summary ---
Demographics + + + | Address | [address] | | | [place] [address] | + + + | Home Phone [...] Providers + +------+ + | Care Apprentice Painter Brush Name | Role | Phone | + +------+ + | Kirk French MD | PCP | | + +------+ + Reason for Visit +--------+--------+ + | Reason | Onset | Comments | | | Date | | +--------+--------+ + | Other | 07/15/ | medication issues | | | 2020 | | +--------+--------+ + Encounter Details +--------+ + + + + | Date | Type | Department | Care Team | Description | +--------+ + + + + | 07/15/ | Telephone | [facility] | [place], | Other (medication | | 2019 | | CARDIOLOGY [address] | PARISA [address] | issues) | | | | [place], | [place], | | | | | [place] [address] | [place] [address] | | | | | [phone] | [phone] | | | | | | | [...] Telephone Encounter - Darlene Tirado RN - 07/16/2020 10:42 AM PDTFrousmane is notified, he st ates that he has spoken to that provider about that and he is aware. He will discuss furthe r with Janeen at appointment today if needed. ...........................................Sola Tirado RN, on 07/16/20 at 10:43 AM PDT elephone Encounter - Janeen Vega ARNP - 07/15/2020 10:36 AM PDTLyrica does not have any side effects i n the heart. However, common reaction for Lyrica is peripheral edema. I would recommend he c alls the provider that is treating his fibromyalgia and talk to him/her about other treatmen t options if he is concerned about not being able to do well on the Lyrica. Electronically signed by: PARISA Lomas 07/15/2020 10:38 AM PDT eleKeisha Armijo RN - 07/15/2020 10:20 AM PDTPatient called to report he has res tarted his Lyrica 60 mg twice daily due to severe fibromyalgia pain that impairs his quality of sleep. He restarted this medication last night and took his second dose this morning. He is worried about the possibility of peripheral edema recurring and the effect this may have on his heart. He is also wanting to know any possible treatment options for this. He is scheduled for an appointment with Janeen Vega tomorrow. Routing to Janeen for er review............................................Keisha Farnsworth RN, on 07/15/20 at 10:26 AM PDT documented in this encounter Plan of Treatment +--------+ + + + + | Date | Type | Specialty | Care Team | Description | +--------+ + + + + | 08/21/ | Implant | Cardiology | Daljit Singletary, | Remote Device | | 2019 | Monitor | | MD [address] | Interrogation | | | | | [place], | (Primary Dx); | | | | | [place] [address] | Pacemaker; | | | | | [phone] | Sinoatrial node | | | | | | dysfunction (HCC) | | | | | | with symptomatic | | | | | | bradycardia | +--------+ + + + + | 08/21/ | Implant | Cardiology | Daljit Singletary, | Remote Device | | 2019 | Monitor | | MD [address] | Interrogation | | | | | [place], | (Primary Dx); | | | | | [place] [address] | Pacemaker; | | | | | [phone] | Sinoatrial node | | | | | | dysfunction ([facility]) | | | | | | with symptomatic | | | | | | bradycardia | +--------+ + + + + | 08/21/ | Implant | Cardiology | Daljit Singletary, | Remote Device | | 2019 | Monitor | | MD [address] | Interrogation | | | | | [place], | (Primary Dx); | | | | | [place] [address] | Pacemaker; | | | | | [phone] | Sinoatrial node | | | | | | dysfunction (HCC) | | | | | | with symptomatic | | | | | | bradycardia | +--------+ + + + + | 08/21/ | Implant | Cardiology | Daljit Singletary, | Remote Device | | 2019 | Monitor | | MD [address] | Interrogation | | | | | [place], | (Primary Dx); | | | | | [place] [address] | Pacemaker; | | | | | [phone] | Sinoatrial node | | | | | | dysfunction (HCC) | | | | | | with symptomatic | | | | | | bradycardia | +--------+ + + + + | 08/21/ | Implant | Cardiology | Daljit Singletary, | Remote Device | | 2019 | Monitor | | MD [address] | Interrogation | | | | | [place], | (Primary Dx); | | | | | [place] [address] | Pacemaker; | | | | | [phone] | Sinoatrial node | | | | [...] | | | | | | [place] [address] | | | | | | [phone] | | | | | | | | +--------+ + + + + documented as of this encounter Visit Diagnoses Not on filedocumented in this encounter"
--- OUTSIDE RECORDS SUMMARY | ~2020-08-06 | XMS | Encounter Summary ---
Demographics + + + | Address | [address] [place] [address] [address] | | | [place] [address] | + + + | Home Phone [...] [place] | | | | | [address] | | + + + + + Care Team Providers + +------+ + | Care Diving Judge Name | Role | Phone | [...] | 2019 | | Center at [facility] [address] | MD [address] | diarrhea; sent to | | | | [address] [facility] | [place], [place] | ED) | | | | for Health and | [address] | | | | | [facility], [facility] [address] | [phone] | | | | | [place], [place] | | | | | | [address] | | | | | | [phone] | | | +--------+ + + + [...] - 10/10/2019 10:50 AM PSTPlaced call to [facility] and they state that they have no [...] - 10/05/2019 11:48 AM PSTED report from [facility] received an d uploaded to patient's chart. 11:4 8 AM PSTTelephone Encounter - Brittany Sow MA - 10/05/2019 10:28 AM PSTRecords request s ent to [facility] in [place] at [phone] signed by Brittany heard MA at 10/05/2019 [...] was agreeable to be evaluated at the [facility] ED. Called report to MONROE Chavira and [...]
--- OUTSIDE RECORDS SUMMARY | ~2020-08-06 | XMS | Clinical Summary ---
Demographics + + + | Address | [address] | | | [place] [address] | + + + | Home Phone [...] Team Providers + +------+ + | Care Regulator Tester Name | Role | Phone | [...] | | + + + +---------+------+------+-------+ | [place]-3 Fatty | CAPS, one capsule [...] e | + + + +---------+------+------+-------+ | ELDERBERRY [...] + + + +---------+------+------+-------+ | promethazine | 1po tid prn | 90 | 3 | 02/2 | | Activ | | (PHENERGAN) 12.5 MG | | tablet | | 0/20 | | e | | tablet | | | | 20 | | | + + + +---------+------+------+-------+ | atorvaSTATin | Take 1 tablet by | 90 | 3 | 06/ | | Activ | | (LIPITOR) 80 MG | mouth nightly. | tablet | | 0/20 | | e | | tabletIndications: | | | | 20 | | | | Coronary artery | | | | | | | | disease involving | | | | | | | | [place] coronary | | | | | | | | artery of [place] | | | | | | | | heart without angina | | | | | | | | pectoris, | | | | | | | | Hyperlipidemia, | | | | | | | | mixed | | | | | | | + + + +---------+------+------+-------+ | pregabalin | Take 1 capsule by | 90 | 1 | / | | Activ | | (LYRICA) 75 mg | mouth 2 times daily. | capsule | | 1/20 | | e | | capsule | | | | 20 | | | + + + +---------+------+------+-------+ | diclofenac | Take 1 tablet by [...] + + +---------+------+------+-------+ | hyoscyamine | PLACE ONE TABLET | [...] | | + + + +---------+------+------+-------+ | traZODone | Take 1 tablet by | 30 | 0 | 08/0 | | Activ | | (DESYREL) 150 MG | mouth nightly. | tablet | | /20 | | e | | tablet | | | | 20 | | | + + + +---------+------+------+-------+ +---+ + | | Additional | | | InformationPatient | | | taking differently: | | | 300 mg Oral NIGHTLY | | | PRN, Reported on | | | 07/16/2020 1:37 PM | +---+ + + + +--------+---+------+------+-------+ | valACYclovir | TAKE ONE TABLET BY | 180 | 0 | 09/0 | | Activ | | (VALTREX) 1 g tablet | MOUTH TWICE A DAY | tablet | | 20 | | e | | | | | | 20 | | | + + +--------+---+------+------+-------+ | clonazePAM | TAKE ONE TABLET BY | 90 | 0 | 09/0 | | Activ | | (KLONOPIN) 1 mg | MOUTH THREE TIMES A | tablet | | 12/11 | | e | | tablet | DAY NEEDED FOR | | | 20 | | | | | ANXIETY | | | | | | + + +--------+---+------+------+-------+ | UNCODED MEDICATION | Diagnosis: | 1 | 0 | /2 | 06/23 | Disco | | | Obstructive Sleep | Device | | 06/10 | 04/10 | ntinu | | | ApneaICD-9: | | | 13 | 20 | ed | | | 327.23Length of | | | | | (Pham | | | Need: 99 Months | | | | | ent | | | | | | | | Not | | | | | | | | Takin | | | | | | | | g) | + + +--------+---+------+------+-------+ | Misc Natural | Take by mouth. | | 0 | | / | Disco | | Products (OSTEO | Takes 2 tablets in | | | | 04/10 | ntinu | | BI-FLEX/5-LOXIN | the morning and 2 | | | | 20 | ed | | ADVANCED PO) | tablets at night | | | | | (Pham | | | | | | | | ent | | | | | | | | Not | | | | | | | | Takin | | | | | | | | g) | + + +--------+---+------+------+-------+ | UNABLE TO FIND | Take 1 tablet by | | 0 | | 08/2 | Disco | | | mouth Daily. | | | | 5/20 | ntinu | | | MARINE-D3 | | | | 20 | ed | | | | | | | | (Pham | | | | | | | | ent | | | | | | | | Not | | | | | | | | Takin | | | | | | | | g) | + + +--------+---+------+------+-------+ | CYANOCOBALAMIN PO | Take by mouth. | | 0 | | 08/2 | Disco | | | | | | | 5/20 | ntinu | | | | | | | 20 | ed | | | | | | | | (Pham | | | | | | | | ent | | | | | | | | Not | | | | | | | | Takin | | | | | | | | g) | + + +--------+---+------+------+-------+ | cyclobenzaprine | | | 0 | 09/0 | 08/2 | Disco | | (FLEXERIL) 10 mg | | | | 6/20 | 5/20 | ntinu | | tablet | | | | 19 | 20 | ed | | | | | | | | (Pham | | | | | | | | ent | | | | | | | | Not | | | | | | | | Takin | | | | | | | | g) | + + +--------+---+------+------+-------+ | PYRIDOXINE HCL PO | Take by mouth. | | 0 | | 08/2 | Disco | | | | | | | 5/20 | ntinu | | | | | | | 20 | ed | | | | | | | | (Pham | | | | | | | | ent | | | | | | | | Not | | | | | | | | Takin | | | | | | | | g) | + + +--------+---+------+------+-------+ | | Use up to tid prn | 57 g | 3 | 02/2 | 08/2 | Disco | | pramoxine-hydrocorti | | | | 0/20 | 5/20 | ntinu | | sone cream | | | | 20 | 20 | ed | | | | | | | | (Pham | | | | | | | | ent | | | | | | | | Not | | | | | | | | Takin | | | | | | | | g) | + + +--------+---+------+------+-------+ | valACYclovir | TAKE ONE TABLET BY | 180 | 0 | 03/0 | 09/0 | Disco | | (VALTREX) 1 g tablet | MOUTH TWICE A DAY | tablet | | 3/20 | 1/20 | ntinu | | | | | | 20 | 20 | ed | + + +--------+---+------+------+-------+ | HYDROmorphone | take 1 tablet by | | 0 | 06/0 | 08/2 | Disco | | (DILAUDID) 4 MG | mouth every 4 hours | | | 9/20 | 5/20 | ntinu | | tablet | if needed for pain | | | 20 | 20 | ed | | | | | | | | (Pham | | | | | | | | ent | | | | | | | | Not | | | | | | | | Takin | | | | | | | | g) | + + +--------+---+------+------+-------+ | | | | 0 | 05/2 | 08/2 | Disco | | oxyCODONE-acetaminop | | | | 7/20 | 5/20 | ntinu | | hen (PERCOCET) 5-325 | | | | 20 | 20 | ed | | mg per tablet | | | | | | (Pham | | | | | | | | ent | | | | | | | | Not | | | | | | | | Takin | | | | | | | | g) | + + +--------+---+------+------+-------+ | clonazePAM | TAKE ONE TABLET BY | 90 | 0 | 07/0 | 09/0 | Disco | | (KLONOPIN) 1 mg | MOUTH THREE TIMES A | tablet | | 8/20 | 1/20 | ntinu | | tablet | DAY NEEDED FOR | | | 20 | 20 | ed | | | ANXIETY | | | | | | + + +--------+---+------+------+-------+ | | | | 0 | 07/2 | 08/2 | Disco | | HYDROcodone-acetamin | | | | 08/11 | 04/10 | ntinu | | ophen (NORCO) 5-325 | | | | 20 | 20 | ed | | mg per tablet | | | | | | (Pham | | | | | | | | ent | | | | | | | | Not | | | | | | | | Takin | | | | | | | | g) | + + +--------+---+------+------+-------+ Active Problems + + + | Problem | Noted Date | + + + | Shooting pain | 07/11/2020 | + + + | Rectal bleeding | 01/15/2020 | + + + + + | Overview: Added automatically from request for surgery | | [id number] | + + + + + | Diarrhea, unspecified type | 01/15/2020 | + + + + + | Overview: Added automatically from request for surgery | | [id number] | + + + + + | Unintentional weight loss | 01/15/2020 | + + + + + | Overview: Added automatically from request for surgery | | [id number] | + + + + + | Opioid type dependence, continuous | 01/15/2020 | + + + + + | Overview: Added automatically from request for surgery | | [id number] | + + + + + | Allergy to opioid analgesic | 01/15/2020 | + + + + + | Overview: Added automatically from request for surgery | | [id number] | + + + + + | Chronic narcotic [...] + | Overview: Lower back injury (From [facility]) 1980 1984 | + + + + [...] + + | Coronary artery disease involving [place] coronary artery of | 12/21/2013 | | [place] heart without angina pectoris | | + [...] is 64%, by Sydni Singletary | | Echocardiogram 06/16/16, shows normal [...] attenuation cannot | | completely be ruled out.[facility] 12/25/13, shows non critical coronary | | [...] ventricular arrhythmia performed by Dr. Gambino at [facility] on 01/30/2013. Patient had spontaneous [...] back in 3 days to | | [place] for an attempt of ablation under general [...] | + + + + + | Pacemaker, Dual Chamber, Medtronic 06/14/2009 | 06/14/2009 | + + + + + | Overview: Formatting of this note might be different from the | | original. MODEL NAME MODEL# SERIAL# DATE IMPLANTED GENERATOR | | Medtronic DDD [id number] 06/14/09 RV LEAD Medtronic Active | | Bipolar CapSureFix 4076 [id number] 06/14/09 A LEAD Medtronic | | Active Bipolar CapSurFix 4076 [id number] 06/14/09 | + + + +---+ | [...] | PVCs were noted, by Sydni Singletary MD.Event Monitor from | | 06/19/20-07/03/20 shows: Reveals a Sinus Rhythm with rates ranging | | from 59 bpm to 140 bpm. PVC's were recorded,by Delvin Felix, | | CTT. | + + + +---+ | Ascending [...] Date | + + + + | Cannabis [...] | Heart Cath, 02/29/2012, LVEF is 65%, [facility], Sydni Gemini, | | [facility] My[facility] Gated Stress Test, 05/25/2009, EF 53 | | % during rest and 52% during stress. [facility], | | [place], [place].Persantine Sestamibi Stress Test, 06/14/2008, LVEF is | | 60%, [facility], Sydni BrashersuwanL 12/25/13, shows noncritical | | coronary artery [...] Plan: Nonobstructive CAD noted | | on [facility] from 2013, no EKG changes, and negative [...] + + | 07/22/ | Telephone | Family Medicine | Kirk French | Medication Refill | | 2019 | | | MD Brea | | +--------+ + + + + | 07/22/ | Telephone | Family Medicine | Kirk French | Referral (Follow up) | | 2019 | | | MD Brea | (Pain | | | | | | clinic-discharged) | +--------+ + + + + | 07/18/ | Abstract | Cardiology | Silvia | | | 2019 | | | PAR[place] | | +--------+ + + + + | 07/16/ | Office | Cardiology | Silvia, | Sinoatrial node | | 2019 | Visit | | PARISA [place] | dysfunction ([facility]) | | | | | | with symptomatic | | | | | | bradycardia; | | | | | | Symptomatic PVCs; | | | | | | Tachycardia; | | | | | | Coronary artery | | | | | | disease involving | | | | | | [place] coronary | | | | | | artery of [place] | | | | | | heart without angina | | | | | | pectoris; Essential | | | | | | hypertension; | | | | | | Ascending thoracic | | | | | | aortic aneurysm | | | | | | ([facility]); Pacemaker; | | | | | | Pacemaker | | | | | | reprogramming/check | +--------+ + + + + | 07/16/ | Procedure | Cardiology | Sydni Singletary, | Pacemaker | | 2019 | visit | | MD | reprogramming/check | | | | | | DO NOT DELETE | | | | | | (Primary Dx); | | | | | | Sinoatrial node | | | | | | dysfunction ([facility]) | | | | | | with symptomatic | | | | | | bradycardia; | | | | | | Pacemaker, Dual | | | | | | Chamber, Medtronic | | | | | | 06/14/2009 | +--------+ + + + + | 07/16/ | Telephone | Family Medicine | Kirk French | Other (regarding | | 2019 | | | MD Brea | medication and labs) | +--------+ + + + + | 07/15/ | Telephone | Cardiology | Silvia | Other (medication | | 2019 | | | PARISA Vernon | issues) | +--------+ + + + + | 07/11/ | Office | Family Medicine | Kirk French | Shoulder pain, | | 2019 | Visit | | MD Brea | unspecified | | | | | | chronicity, | | | | | | unspecified | | | | | | laterality (Primary | | | | | | Dx); Obesity, | | | | | | unspecified [...] | | | | | exposure | +--------+ + + + + | 07/10/ | Telephone | Cardiology | Sydni Singletary, | Other (swelling up, | | 2019 | | | | not feeling) | +--------+ + + + + | 07/10/ | Telephone | Cardiology | Sydni Singletary, | Appointment | 2019 | | | | (Pacemaker nearing | | | | | | LNIDA) | +--------+ + + + + | 06/24/ | Refill | Family Medicine | Kirk French | Other (prescription | 2019 | | | MD Brea | request) | +--------+ + + + + | 06/11/ | Telephone | Family Medicine | Kirk French | Referral | 2019 | | | MD Brea [...] Telephone | Cardiology | Silvia | Britt (medication | | 2019 | | | PARISA Vernon | and trice) | +--------+ + + + + | 05/30/ | Telephone | Family Medicine | Kirk French | Medication Reaction | | 2019 | | Shanique Guidry MD | | +--------+ + + + + | 05/28/ | Refill | Family Medicine | Kirk French | Medication Refill | | 2020 | | | MD Brea | | +--------+ + + + + | 05/27/ | Telephone | Cardiology | Sydni Singletary, | Other ([facility] | | 2019 | | | MD | monitor | | | | | | disconnected) | +--------+ + + + + | 05/21/ | Implant | Cardiology | Sydni Singletary, Shanique Remote Device | | 2019 | Monitor [...] | Cardiology | Shanique Vega | | 2019 | | | Janeen, RAG BALER | (pacemaker/MRI/shoul | | | | | | good) | +--------+ + + + + from [...] + + | Mother | | | [place] | | | | (Age | | [...] 2019 | Monitor | | [place] [address] [facility] | Interrogation | | | | | [place], | (Primary Dx); | | | | | [place] [address] | Pacemaker; | | | | | [phone] | Sinoatrial node | | | | | | dysfunction (HCC) | | | | | | with symptomatic | | | | | | bradycardia | +--------+ + + + + | 08/21/ | Implant | Cardiology | Sydni Singletary, | Remote Device | | 2019 | Monitor | | [place] [address] | Interrogation | | | | | [place], | (Primary Dx); | | | | | [place] [address] | Pacemaker; | | | | | [phone] | Sinoatrial node | | | | | | dysfunction (HCC) | | | | | | with symptomatic | | | | | | bradycardia | +--------+ + + + + | 08/21/ | Implant | Cardiology | Sydni Singletary, | Remote Device | | 2019 | Monitor | | MD [address] | Interrogation | | | | | [place], | (Primary Dx); | | | | | [place] [address] | Pacemaker; | | | | | [phone] | Sinoatrial node | | | | | | dysfunction (HCC) | | | | | | with symptomatic | | | | | | bradycardia | +--------+ + + + + | 08/21/ | Implant | Cardiology | Sydni Singletary, | Remote Device | | 2020 | Monitor | | MD [address] | Interrogation | | | | | [place], | (Primary Dx); | | | | | [place] [address] | Pacemaker; | | | | | [phone] | Sinoatrial node | | | | | | dysfunction (HCC) | | | | | | with symptomatic | | | | | | bradycardia | +--------+ + + + + | 08/21/ | Implant | Cardiology | Sydni Singletary, | Remote Device | 2019 | Monitor | | [address] | Interrogation | | | | | [place], | (Primary Dx); | | | | | [place] [address] | Pacemaker; | | | | | [phone] | Sinoatrial node | | | | [...] [address] | | | | | | [place], | | | | | | [place] [address] | | | | | | [phone] | | | | | | | | +--------+ + + + + + + + + + | Health Maintenance | Due Date | Last | Comments | | | | Done | | + + + + + | Hepatitis C | | | | | Screening | 9 | | | + + + + + | Med Mgmt: [id number] | | | | | | 9 | | | + + + + + | Medication | | | | | Management | 9 | | | + + [...] Left: | [facility] | | 09/27/ | [id number] | | - [id number]: | | [employer] | [employer] | | 2020 | / | | Qty: 1 on 04/13/2019 by | | | - [place] | | | /[id number] | | Matthew Uriarte MD at | | | | | | 56 | | [facility] | | | | | | | | [facility] | | | | | | | + +-------+--------+ +--------+--------+--------+ Procedures + +--------+ + + + | Procedure Name | Priori | Date/Time | Associated Diagnosis | Comments | | | ty | | | | + +--------+ + + + | DEVICE | Routin | 08/05/2020 | Remote Device | Results for this | | INTERROGATION- | e | 12:00 AM | Interrogation | procedure are in the [...] + | DEVICE INTERROGATION | Routin | 07/16/2020 | Sinoatrial node | Results for this | | | e | 12:00 AM | dysfunction (HCC) | procedure are in the | | | | PDT | with symptomatic | results section. | | | | | bradycardia | | | | | | Pacemaker | | | | | | reprogramming/check | | | | | | DO NOT DELETE | | | | | | Pacemaker, Dual | | | | | | Chamber, Medtronic | | | | | | 06/14/2009 | | + +--------+ + + + | LABS - EXTERNAL SCAN | | 07/11/2020 | | Results for this | | | | 12:00 AM | | procedure are in the | | | | PDT | | results section. | + +--------+ + + + | LABS - EXTERNAL SCAN | | 07/11/2020 | | Results for this [...] 3 Months Results Device Interrogation - Remote (08/05/2020 12:00 AM PDT)Only the most recent of 2 results wi thin the time period is included. + + + | Narrative | Performed At | + + + | Sydni | [facility] | | MD Gemini 08/05/2020 8:35 AMDate of Remote Interrogation: | | | 08/01/2020 Refer to [facility] documentation and remote PDF scanned into | | | [facility] for remote interrogation results. Data collected by Kailey Molina | | | MONROE Pruitt Presenting rhythm: Sinus rhythm, atrial sensed | | | ventricular sensed with rate 104-116 beats.0 mode switch episodes | | | accounting for 0% of the time.No episodes. PVC singles 28 | | | PVC singles 56/monthPVC runs 0 Histogram | | | good. Battery longevity <1 month.Apparent normal and stable | | | device function.Nearing replacement, continue monthly remote | | | reports.Device interrogation due in office when replacement indicator | | | is reached. Patient notified. | | |PVC runs 0 | | |Histogram good. Battery longevity <1 month. | | |Apparent normal and stable device function. | | |Nearing replacement, continue monthly remote reports. | | |Device interrogation due in office when replacement indicator is | | |reached. | | |Patient notified. | | | | | + + + + + | Procedure Note | + + | Sydni Singletary MD - 08/21/2020 11:59 PM PDT Date of Remote Interrogation: | | 08/01/2020Refer to [facility] documentation and remote PDF scanned into [employer] for remote | | interrogation results. Data collected by Yvrose Guerra rhythm: Sinus | | rhythm, atrial sensed ventricular sensed with rate 104-116 beats.0 mode switch episodes | | accounting for 0% of the time.No episodes. PVC singles 28 PVC singles | | 56/monthPVC runs 0 Histogram good. Battery longevity <1 month.Apparent | | normal and stable device function.Nearing replacement, continue monthly remote | | reports.Device interrogation due in office when replacement indicator is reached. | | Patient notified. | |Histogram good. Battery longevity <1 month. | |Apparent normal and stable device function. | |Nearing replacement, continue monthly remote reports. | |Device interrogation due in office when replacement indicator is reached. | |Patient notified. | + + + +---------+ + + | Performing | Address | City/State/[facility] | Phone Number | | Organization | | | | + +---------+ + + | [facility] | | | | + +---------+ + + ECG 12 lead (07/16/2020 1:44 PM PDT) [...] MD | | | | | | ([id number]) on 07/16/2020 | | | | | [...] | + +---------+ + + Device Interrogation (07/16/2020 12:00 AM PDT) + + + | Narrative | Performed At | + + + | Sydni Bay PACEMIAN | | MD Gemini 07/16/2020 2:47 PM PATIENT NAME: Moe | | | Kirk Sanchez : 1960: AGE: 60 y.o. Pacemaker | | | Evaluation Report July 16, 2020 Reason for evaluation: | | | symptomsIndication for pacemaker: Sinoatrial node dysfunction (HCC) | [...] | downloading device data was supervised by Sydni Singletary MD | | | Underlying rhythm: Sinus rhythm 67-68 beats. 2 mode switch episodes | | | accounting for <0.1% of the time. No episodes. PVC singles 181 | | | PVC singles 71/monthPVC runs 1 PVC | | | runs <1/monthHistogram good. Battery longevity <1 month.Nearing | | | LINDA, otherwise normal and stable device function. Weekly remote | | | monitoring. Device interrogation due in office when device reaches | | | replacement interval. | | | | | |Please see the scanned [facility] report and device PDF for further | | |details. | | |Data collected by Shabana Lama RN | | | | | |The technical aspect of downloading device data was supervised by | | |Sydni Singletary MD | | | | | |Underlying rhythm: Sinus rhythm 67-68 beats. | | |2 mode switch episodes accounting for <0.1% of the time. | | |No episodes. | | |PVC singles 181 PVC singles 71/month | | |PVC runs 1 PVC runs <1/month | | |Histogram good. Battery longevity <1 month. | | |Nearing LINDA, otherwise normal and stable device function. | | |Weekly remote monitoring. | | |Device interrogation due in office when device reaches | | |replacement interval. | | | | | + + + + + | Procedure Note | + + | Sydni Singletary MD - 07/16/2020 1:00 PM PDT PATIENT NAME: Moe Bradley | | Laura : 1960: AGE: 60 y.o.Pacemaker Evaluation ReportAugust 25, | | 2019Reason for evaluation: symptomsIndication for pacemaker: Sinoatrial node dysfunction | | [...] device data was | | supervised by Sydni Singletary MDUnderlying rhythm: Sinus rhythm 67-68 beats. 2 mode | | switch episodes accounting for <0.1% of the time. No episodes. PVC singles 181 | | PVC singles 71/monthPVC runs 1 PVC runs <1/monthHistogram good. | | Battery longevity <1 month.Nearing LINDA, otherwise normal and stable device function. | | Weekly remote monitoring. Device interrogation due in office when device reaches | | replacement interval. | | | |The technical aspect of downloading device data was supervised by Sydni Singletary MD | | | |Underlying rhythm: Sinus rhythm 67-68 beats. | |2 mode switch episodes accounting for <0.1% of the time. | |No episodes. | |PVC singles 181 PVC singles 71/month | |PVC runs 1 PVC runs <1/month | |Histogram good. Battery longevity <1 month. | |Nearing LINDA, otherwise normal and stable device function. | |Weekly remote monitoring. | |Device interrogation due in office when device reaches replacement interval. | + + + +---------+ + + | Performing | Address | City/State/Zipcode | Phone Number | | Organization | | | | + +---------+ + + | [facility] | | | | + +---------+ + + External Lab: Triglycerides (07/11/2020) + [...] +---------+ + + LABS - EXTERNAL SCAN (07/11/2020 12:00 AM PDT)Only the most recent of 2 results within the time period is included. + + + | Narrative | Performed At | + + + | Ordered by an | | | unspecified provider. | | + + + Lipid Panel (07/11/2020) + +---------+ + + [...] + + | Blood | + + from Last 3 Months Insurance [...] +--------+ +---------+--------+ | MEDICARE | MEDICA | [id number] | 01/21/20 | [phone] | | Medica | | | RE | | 01-Pre | 5 | | re | | | PART A | | sent | | | | | | AND B | | | | | | + +--------+ +--------+ +---------+--------+ | MEDICARE | MEDICA | [id number] | 01/21/20 | [phone] | | Medica | | | RE | | 01-Pre | 5 | | re | | | PART A | | sent | | | | | | AND B | | | | | | + +--------+ +--------+ +---------+--------+ | AARP | AARP | [id number] | | [phone] | | Indemn | | | MDCR | | 016-Pr | 0 | | ity | | | SUPPL | | esent | | | | + +--------+ +--------+ +---------+--------+ | AARP | AARP | [id number] | 11/22/19 | [phone] | | Indemn [...] Person | Self | [birth year] | [address] | | Kirk | cristo/Per | | 1959 | [phone] | [address] [place] | | | roxanne | | | 8 (Home) | [address] | + +--------+ +--------+ + + | Moe Sanchez | Person | Self | [birth year] | [address] | | Kirk | al/Fam | | [address] | [phone] | [place] | | | roxanne | | | 8 (Home) | [address] | + +--------+ +--------+ + + | Moe Sanchez | Third | Self | [birth year] | [address] | | Kirk | Rayray | | 1959 | [phone] | [place] | | | [place] | | | 3 (Home) | [address] | | | ity | | | | | + +--------+ +--------+ + + | Moe Sanchez | Person | Self | [birth year] | [address] | | Kirk | al/Per | | 1959 | [phone] | [address] [place] | | | [place]xanne | | | 8 ([place]) | [address] | + +--------+ +--------+ + + Advance Directives + + + + + | Type | Date Recorded | Patient | Explanation | | | | Attendant Honor Bar | | + + + + + | Power of | | | | | Physical Damage Appraiser | | | | + + + [...]
--- OUTSIDE RECORDS SUMMARY | ~2020-08-06 | XMS | Encounter Summary ---
Demographics + + + | Address | [address] | | | [place] [address] | + + + | Home Phone [...] Providers + +------+ + | Care Lobby Attendant Name | Role | Phone | [...] + + | 07/27/ | Telephone | [facility] | Emmanuel Daniel MD | Medication | | 2019 | | GASTROENTEROLOGY | [address], [place] | Recommendations | | | | [address] [place] | [address] [place], [place] | | | | | [address] [place], [place] | [address] | | | | | [address] | | | | | | [phone] | | | +--------+ + + + [...] us ron arellano with the specific name. Damien Cardenas PDTdocumented in this encounter Plan of Treatment +--------+ + + + + | Date | Type | Specialty | Care Team | Description | +--------+ + + + + | 08/21/ | Implant | Cardiology | Daljit Singletary, | Remote Device | | 2019 | Monitor | | MD [address] | Interrogation | | | | | [place], | (Primary Dx); | | | | | [place] [address] | Pacemaker; | | | | | [phone] | Sinoatrial node | | | | | | dysfunction (HCC) | | | | | | with symptomatic | | | | | | bradycardia | +--------+ + + + + | 08/21/ | Implant | Cardiology | Daljit Singletary, | Remote Device | | 2019 | Monitor | | [address] | Interrogation | | | | | [place], | (Primary Dx); | | | | | [place] [address] | Pacemaker; | | | | | [phone] | Sinoatrial node | | | | | | dysfunction (HCC) | | | | | | with symptomatic | | | | | | bradycardia | +--------+ + + + + | 08/21/ | Implant | Cardiology | Daljit Singletary, | Remote Device | | 2019 | Monitor | | MD [address] | Interrogation | | | | | [place], | (Primary Dx); | | | | | [place] [address] | Pacemaker; | | | | | [phone] | Sinoatrial node | | | | | | dysfunction (HCC) | | | | | | with symptomatic | | | | | | bradycardia | +--------+ + + + + | 08/21/ | Implant | Cardiology | Daljit Singletary, | Remote Device | | 2019 | Monitor | | MD [address] | Interrogation | | | | | [place], | (Primary Dx); | | | | | [place] [address] | Pacemaker; | | | | | [phone] | Sinoatrial node | | | | | | dysfunction (HCC) | | | | | | with symptomatic | | | | | | bradycardia | +--------+ + + + + | 08/21/ | Implant | Cardiology | SunshinecherelleDaljit, | Remote Device | | 2019 | Monitor | | [address] [place] | Interrogation | | | | | [place], | (Primary Dx); | | | | | [place] [address] | Pacemaker; | | | | | [phone] | Sinoatrial node | | | | [...] | | | | | | [place], | | | | | | [place] [address] | | | | | | [phone] | | | | | | | | +--------+ + + + + documented as of this encounter Visit Diagnoses Not on filedocumented in this encounter"
--- OUTSIDE RECORDS SUMMARY | ~2020-08-06 | XMS | Encounter Summary ---
Demographics + + + | Address | [address] | | | [place] [address] | + + + | Home Phone [...] + + | 12/16/ | Hospital | [facility] | | | | 2010 | Encounter | MED CTR LABORATORY | | | | | | [address] | | | | | | [place] | | | | | | [address] | | | | | | [phone] | | | +--------+ + + + [...] | Monitor | | MD [address] | Interrogation | | | | | [place], | (Primary Dx); | | | | | [place] [address] | Pacemaker; | | | | | [phone] | Sinoatrial node | | | | | | dysfunction (HCC) | | | | | | with symptomatic | | | | | | bradycardia | +--------+ + + + + | 08/21/ | Implant | Cardiology | Daljit Singletary, | Remote Device | | 2019 | Monitor | | MD [address] | Interrogation | | | | | [place], | (Primary Dx); | | | | | [place] [address] | Pacemaker; | | | | | [phone] | Sinoatrial node | | | | | | dysfunction (HCC) | | | | | | with symptomatic | | | | | | bradycardia | +--------+ + + + + | 08/21/ | Implant | Cardiology | Daljit Singletary, | Remote Device | | 2019 | Monitor | | MD [address] | Interrogation | | | | | [place], | (Primary Dx); | | | | | [place] [address] | Pacemaker; | | | | | [phone] | Sinoatrial node | | | | | | dysfunction (HCC) | | | | | | with symptomatic | | | | | | bradycardia | +--------+ + + + + | 08/21/ | Implant | Cardiology | Daljit Singletary, | Remote Device | | 2019 | Monitor | | MD [address] | Interrogation | | | | | [place], | (Primary Dx); | | | | | [place] [address] | Pacemaker; | | | | | [phone] | Sinoatrial node | | | | | | dysfunction (HCC) | | | | | | with symptomatic | | | | | | bradycardia | +--------+ + + + + | 08/21/ | Implant | Cardiology | Daljit Singletary, | Remote Device | | 2019 | Monitor | | MD [address] | Interrogation | | | | | [place], | (Primary Dx); | | | | | [place] [address] | Pacemaker; | | | | | [phone] | Sinoatrial node | | | | [...] | | | | | | [place] [address] | | | | | | [phone] | | | | | | | | +--------+ + + + + documented as of this encounter Visit Diagnoses Not on filedocumented in this encounter"
--- OUTSIDE RECORDS SUMMARY | ~2020-08-06 | XMS | Encounter Summary ---
Demographics + + + | Address | [address] | | | [place] [address] | + + + | Home Phone [...] Providers + +------+ + | Care Applications Manager Name | Role | Phone | [...] + + | 08/24/ | Office | [facility] | Silvia, | Ascending thoracic | | 2018 | Visit | CARDIOLOGY [address] | PARISA [place] [address] | aortic aneurysm | | | | [place], | [place], | ([facility]) (Primary Dx); | | | | [place] [address] | [place] [address] | Syncope, unspecified | | | | [phone] | [phone] | syncope type; | | | | | | Hypertension, | | | | | | unspecified type; | | | | | | Coronary artery | | | | | | disease involving | | | | | | little river coronary | | | | | | artery of little river | | | | | | [...] of non-critical coronary artery d isease involving little river coronary artery of little river heart without angina pectoris, essential h [...] Preventative health care Coronary artery disease involving little river coronary artery of little river heart without angina pectoris Cannabis abuse, [...] 3RD DOSE, CALL 911 100 tablet 3 [place]-3 Fatty Acids (SALMON OIL-1000 PO) CAPS, one [...] now present Confirmed by HIREN WINKLER, ANGELA ([id number]) on 07/28/2018 6:03:35 AM LAB RESULTS reviewed during visit today primarily from [facility]: LIPID Lab Results Component Value [...] PLTEX 157 04/11/2018 I reviewed records from [facility] for emergency department visit o [...] to go back in 3 days to [place] for an attempt of ablation under general [...] He is in class II of the [place] [employer] f unctional class. There are [...] subsided. 2. Non-critical Coronary artery disease involving little river coronary artery of little river heart [facility] angina pectoris: A. Normal exercise sestamibi stress test on 05/25/09. LVEF by [facility] SPECT was 53%. B. [...] cannot completely be ruled out . D. LHC 12/25/13, shows non critical coronary [...] this chart may have been created with Rain voice recognition software. Occasi onal wrong-word or [...] Interrogation | | | | | [place], | (Primary Dx); | | | | | [place] [address] | Pacemaker; | | | | | [phone] | Sinoatrial node | | | | | | dysfunction (HCC) | | | | | | with symptomatic | | | | | | bradycardia | +--------+ + + + + | 08/21/ | Implant | Cardiology | Daljit Singletary, | Remote Device | | 2019 | Monitor | | MD [address] | Interrogation | | | | | [place], | (Primary Dx); | | | | | [place] [address] | Pacemaker; | | | | | [phone] | Sinoatrial node | | | | | | dysfunction (HCC) | | | | | | with symptomatic | | | | | | bradycardia | +--------+ + + + + | 08/21/ | Implant | Cardiology | Daljit Singletary, | Remote Device | | 2020 | Monitor | | MD [address] | Interrogation | | | | | [place], | (Primary Dx); | | | | | [place] [address] | Pacemaker; | | | | | [phone] | Sinoatrial node | | | | | | dysfunction (HCC) | | | | | | with symptomatic | | | | | | bradycardia | +--------+ + + + + | 08/21/ | Implant | Cardiology | Daljit Singletary, | Remote Device | | 2020 | Monitor | | MD [address] | Interrogation | | | | | [place], | (Primary Dx); | | | | | [place] [address] | Pacemaker; | | | | | [phone] | Sinoatrial node | | | | | | dysfunction (HCC) | | | | | | with symptomatic | | | | | | bradycardia | +--------+ + + + + | 08/21/ | Implant | Cardiology | Daljit Singletary, | Remote Device | | 2020 | Monitor | | MD [address] | Interrogation | | | | | [place], | (Primary Dx); | | | | | [place] [address] | Pacemaker; | | | | | [phone] | Sinoatrial node | | | | [...] | | | | | | [place] [address] | | | | | | [phone] | | | | | | | [...] + | Coronary artery disease involving little river coronary artery of little river heart without | | angina pectoris [...]
--- OUTSIDE RECORDS SUMMARY | ~2020-08-06 | XMS | Encounter Summary ---
Demographics + + + | Address | [address] [place] [address] [address] | | | [place] [address] | + + + | Home Phone [...] | Rachel Valencia | [address] | [place] | | | | | [address] | | + + + + + [...] | | [address] | [place], [place] | | | | | for Health and | [address] | | | | | [facility], [facility] [address] | [phone] | | | | | [place], [place] | | | | | | [address] | | | | | | [phone] | | | +--------+ + + + [...] 3:59 PM PSTStool lab results received fr [facility]. Uploaded to patient's chart. elephone Encounter [...] had dropped off his stool samples at [facility] in [facility]. Placed call to [facility] and spoke with Mariama. She is faxing stool sample results to our [facility] fax. elephone Bridgette Sabillon - 10/16/2019 11:57 [...] 2:28 PM PSTPerson calling? (Patient, spouse, caregiver, wv dical office, etc): pt Reason for call: [...]
--- OUTSIDE RECORDS SUMMARY | ~2020-08-06 | XMS | Encounter Summary ---
Demographics + + + | Address | [address] | | | [place] [address] | + + + | Home Phone [...] Providers + +------+ + | Care Switching Clerk Name | Role | Phone | + +------+ + PCP | Unavailable | + +------+ + Encounter Details +--------+ + + + + | Date | Type | Department | Care Team | Description | +--------+ + + + + | 06/12/ | [facility] | [facility] | Hunter Antunez, | | | 2007 - | Encounter | MED CTR ICU [address] | MD [address] | | | | | [place], | [place] | | | 06/15/ | | [place] [address] | [address] | | | 2007 | | [phone] | | | +--------+ + + + [...] Interrogation | | | | | [place], | (Primary Dx); | | | | | [place] [address] | Pacemaker; | | | | | [phone] | Sinoatrial node | | | | | | dysfunction (HCC) | | | | | | with symptomatic | | | | | | bradycardia | +--------+ + + + + | 08/21/ | Implant | Cardiology | Daljit Singletary, | Remote Device | | 2019 | Monitor | | MD [address] | Interrogation | | | | | [place], | (Primary Dx); | | | | | [place] [address] | Pacemaker; | | | | | [phone] | Sinoatrial node | | | | | | dysfunction (HCC) | | | | | | with symptomatic | | | | | | bradycardia | +--------+ + + + + | 08/21/ | Implant | Cardiology | Daljit Singletary, | Remote Device | | 2020 | Monitor | | MD [address] | Interrogation | | | | | [place], | (Primary Dx); | | | | | [place] [address] | Pacemaker; | | | | | [phone] | Sinoatrial node | | | | | | dysfunction ([facility]) | | | | | | with symptomatic | | | | | | bradycardia | +--------+ + + + + | 08/21/ | Implant | Cardiology | Daljit Singletary, | Remote Device | | 2019 | Monitor | | MD [address] | Interrogation | | | | | [place], | (Primary Dx); | | | | | [place] [address] | Pacemaker; | | | | | [phone] | Sinoatrial node | | | | | | dysfunction ([facility]) | | | | | | with symptomatic | | | | | | bradycardia | +--------+ + + + + | 08/21/ | Implant | Cardiology | Daljit Singletary, | Remote Device | | 2019 | Monitor | | MD [address] | Interrogation | | | | | [place], | (Primary Dx); | | | | | [place] [address] | Pacemaker; | | | | | [phone] | Sinoatrial node | | | | [...] | | | | | | [place] [address] | | | | | | [phone] | | | | | | | | +--------+ + + + + documented as of this encounter Visit Diagnoses Not on filedocumented in this encounter"
--- OUTSIDE RECORDS SUMMARY | ~2020-08-06 | XMS | Encounter Summary ---
Demographics + + + | Address | [address] | | | [place] [address] | + + + | Home Phone [...] Providers + +------+ + | Care Child Attendant Name | Role | Phone | [...] [address] | | | | | [place], | [place], | | | | | [place] [address] | [place] [address] | | | | | [phone] | [phone] | | | | | | | [...] 2019 | Monitor | | [address] [place] | Interrogation | | | | | [address], | (Primary Dx); | | | | | [place] [address] | Pacemaker; | | | | | [phone] | Sinoatrial node | | | | | | dysfunction (HCC) | | | | | | with symptomatic | | | | | | bradycardia | +--------+ + + + + | 08/21/ | Implant | Cardiology | Daljit Singletary, | Remote Device | | 2020 | Monitor | | MD [address] [place] | Interrogation | | | | | [place], | (Primary Dx); | | | | | [place] [address] | Pacemaker; | | | | | [phone] | Sinoatrial node | | | | | | dysfunction (HCC) | | | | | | with symptomatic | | | | | | bradycardia | +--------+ + + + + | 08/21/ | Implant | Cardiology | Daljit Singletary, | Remote Device | | 2019 | Monitor | | MD [address] [place] | Interrogation | | | | | [place], | (Primary Dx); | | | | | [place] [address] | Pacemaker; | | | | | [phone] | Sinoatrial node | | | | | | dysfunction (HCC) | | | | | | with symptomatic | | | | | | bradycardia | +--------+ + + + + | 08/21/ | Implant | Cardiology | Daljit Singletary, | Remote Device | | 2019 | Monitor | | MD [address] [place] | Interrogation | | | | | [place], | (Primary Dx); | | | | | [place] [address] | Pacemaker; | | | | | [phone] | Sinoatrial node | | | | | | dysfunction (HCC) | | | | | | with symptomatic | | | | | | bradycardia | +--------+ + + + + | 08/21/ | Implant | Cardiology | Daljit Singletary, | Remote Device | | 2019 | Monitor | | MD [address] [place] | Interrogation | | | | | [place], | (Primary Dx); | | | | | [place] [address] | Pacemaker; | | | | | [phone] | Sinoatrial node | | | | [...] | | | | | | [place] [address] | | | | | | [phone] | | | | | | | [...] Resulting Agency Comment | + + | [facility] | + + + +---------+ + [...] Agency Comment | + + | [facility] | + + + +---------+ [...] Resulting Agency Comment | + + | [facility] | + + + +---------+ + [...] Resulting Agency Comment | + + | [facility] | + + + +---------+ + [...] Resulting Agency Comment | + + | [facility] | + + + +---------+ + [...] Resulting Agency Comment | + + | [facility] | + + + +---------+ + [...] Agency Comment | + + | [facility] | + + + +---------+ + [...] Agency Comment | + + | [facility] | + + + +---------+ [...] Resulting Agency Comment | + + | [facility] | + + + +---------+ + [...] Agency Comment | + + | [facility] | + + + +---------+ [...] Agency Comment | + + | [facility] | + + + +---------+ + [...] Resulting Agency Comment | + + | [facility] | + + + +---------+ + [...] Resulting Agency Comment | + + | [facility] | + + + +---------+ + [...] Resulting Agency Comment | + + | [facility] | + + + +---------+ + [...] Resulting Agency Comment | + + | [facility] | + + + +---------+ + [...] Agency Comment | + + | [facility] | + + + +---------+ + [...] Resulting Agency Comment | + + | [facility] | + + + +---------+ + [...] Resulting Agency Comment | + + | [facility] | + + + +---------+ [...] Agency Comment | + + | [facility] | + + + +---------+ + [...]
--- OUTSIDE RECORDS SUMMARY | ~2020-08-06 | XMS | Encounter Summary ---
Demographics + + + | Address | [address] | | | [place] [address] | + + + | Home Phone [...] Providers + +------+ + | Care Dairy Clerk Name | Role | Phone | + +------+ + PCP | Unavailable | + +------+ + Encounter Details +--------+ + + + + | Date | Type | Department | Care Team | Description | +--------+ + + + + | 02/07/ | Hospital | [facility] | Unknown, | | | 1995 | Encounter | MED CTR XRAY [address] | MD Stefany . | | | | | [address] | | | | | | [place] [address] | | | | | | [phone] | | | +--------+ + + + [...] | Monitor | | MD [address] | Interrogation | | | | | [place], | (Primary Dx); | | | | | [place] [address] | Pacemaker; | | | | | [phone] | Sinoatrial node | | | | | | dysfunction (HCC) | | | | | | with symptomatic | | | | | | bradycardia | +--------+ + + + + | 08/21/ | Implant | Cardiology | Daljit Singletary, | Remote Device | | 2019 | Monitor | | MD [address] | Interrogation | | | | | [place], | (Primary Dx); | | | | | [place] [address] | Pacemaker; | | | | | [phone] | Sinoatrial node | | | | | | dysfunction (HCC) | | | | | | with symptomatic | | | | | | bradycardia | +--------+ + + + + | 08/21/ | Implant | Cardiology | Daljit Singletary, | Remote Device | | 2019 | Monitor | | MD [address] | Interrogation | | | | | [place], | (Primary Dx); | | | | | [place] [address] | Pacemaker; | | | | | [phone] | Sinoatrial node | | | | | | dysfunction (HCC) | | | | | | with symptomatic | | | | | | bradycardia | +--------+ + + + + | 08/21/ | Implant | Cardiology | Daljit Singletary, | Remote Device | | 2019 | Monitor | | MD [address] | Interrogation | | | | | [place], | (Primary Dx); | | | | | [place] [address] | Pacemaker; | | | | | [phone] | Sinoatrial node | | | | | | dysfunction (HCC) | | | | | | with symptomatic | | | | | | bradycardia | +--------+ + + + + | 08/21/ | Implant | Cardiology | Daljit Singletary, | Remote Device | | 2020 | Monitor | | MD [address] | Interrogation | | | | | [place], | (Primary Dx); | | | | | [place] [address] | Pacemaker; | | | | | [phone] | Sinoatrial node | | | | [...] | | | | | | [place] [address] | | | | | | [phone] | | | | | | | | +--------+ + + + + documented as of this encounter Visit Diagnoses Not on filedocumented in this encounter"
--- OUTSIDE RECORDS SUMMARY | ~2020-08-06 | XMS | Encounter Summary ---
Demographics + + + | Address | [address] | | | [place] [address] | + + + | Home Phone [...] Team Providers + +------+ + | Care Dimensional Engineer Name | Role | Phone | [...] | 01/05/ | Telephone | [facility] | Emmanuel Daniel MD | Other | | 2019 | | GASTROENTEROLOGY | [address], [place] | | | | | [address] [place] | [address] [place], [place] | | | | | [address] [place], [place] | [address] | | | | | [address] | | | | | | [phone] | | | +--------+ + + + [...] GI symptoms are related to stress. Ren denty signed by Kaylynn Copeland RN at 01/11/2019 [...] to call for results. elephone Encoun Anastacio uBll - 01/05/2019 2:20 PM PSTName of Caller: Moe Sanchez Name of Patient: LauraSkylerMoechica Bradley Reason for call: Patient called and stated that he not feeling any better and once his biop sy results come back he would like to be transferred to [facility]. Routing to clinical staff. Provider/Nurse: Dr. Daniel Call back number: [phone] documented in this encou nter Plan of Treatment +--------+ + + + + | Date | Type | Specialty | Care Team | Description | +--------+ + + + + | 08/21/ | Implant | Cardiology | Daljit Singletary, | Remote Device | 2019 | Monitor | | MD [facility] | Interrogation | | | | | [place], | (Primary Dx); | | | | | [place] [address] | Pacemaker; | | | | | [phone] | Sinoatrial node | | | | | | dysfunction (HCC) | | | | | | with symptomatic | | | | | | bradycardia | +--------+ + + + + | 08/21/ | Implant | Cardiology | Daljit Singletary, | Remote Device | | 2020 | Monitor | | MD [address] | Interrogation | | | | | [place], | (Primary Dx); | | | | | [place] [address] | Pacemaker; | | | | | [phone] | Sinoatrial node | | | | | | dysfunction (HCC) | | | | | | with symptomatic | | | | | | bradycardia | +--------+ + + + + | 08/21/ | Implant | Cardiology | Daljit Singletary, | Remote Device | | 2019 | Monitor | | MD [address] | Interrogation | | | | | [place], | (Primary Dx); | | | | | [place] [address] | Pacemaker; | | | | | [phone] | Sinoatrial node | | | | | | dysfunction (HCC) | | | | | | with symptomatic | | | | | | bradycardia | +--------+ + + + + | 08/21/ | Implant | Cardiology | Daljit Singletary, | Remote Device | | 2019 | Monitor | | MD [address] | Interrogation | | | | | [place], | (Primary Dx); | | | | | [place] [address] | Pacemaker; | | | | | [phone] | Sinoatrial node | | | | | | dysfunction (HCC) | | | | | | with symptomatic | | | | | | bradycardia | +--------+ + + + + | 08/21/ | Implant | Cardiology | Daljit Singletary, | Remote Device | 2019 | Monitor | | MD [address] | Interrogation | | | | | [place], | (Primary Dx); | | | | | [place] [address] | Pacemaker; | | | | | [phone] | Sinoatrial node | | | | [...] [address] | | | | | | [place], | | | | | | [place] [address] | | | | | | [phone] | | | | | | | | +--------+ + + + + documented as of this encounter Visit Diagnoses Not on filedocumented in this encounter
--- OUTSIDE RECORDS SUMMARY | ~2020-08-06 | XMS | Encounter Summary ---
Demographics + + + | Address | [address] | | | [place] [address] | + + + | Home Phone [...] Providers + +------+ + | Care Textile Scrap Salvager Name | Role | Phone | + [...] | fasting labs) | | | | [place], | [place], | | | | | [place] [address] | [place] [address] | | | | | [phone] | [phone] | | | | | | | [...] | Monitor | | MD [address] [place] | Interrogation | | | | | [place], | (Primary Dx); | | | | | [place] [address] | Pacemaker; | | | | | [phone] | Sinoatrial node | | | | | | dysfunction (HCC) | | | | | | with symptomatic | | | | | | bradycardia | +--------+ + + + + | 08/21/ | Implant | Cardiology | Daljit Singletary, | Remote Device | | 2019 | Monitor | | MD [address] [place] | Interrogation | | | | | [place], | (Primary Dx); | | | | | [place] [address] | Pacemaker; | | | | | [phone] | Sinoatrial node | | | | | | dysfunction (HCC) | | | | | | with symptomatic | | | | | | bradycardia | +--------+ + + + + | 08/21/ | Implant | Cardiology | Daljit Singletary, | Remote Device | | 2020 | Monitor | | MD [address] [place] | Interrogation | | | | | [place], | (Primary Dx); | | | | | [place] [address] | Pacemaker; | | | | | [phone] | Sinoatrial node | | | | | | dysfunction (HCC) | | | | | | with symptomatic | | | | | | bradycardia | +--------+ + + + + | 08/21/ | Implant | Cardiology | Daljit Singletary, | Remote Device | | 2019 | Monitor | | MD [address] [place] | Interrogation | | | | | [place], | (Primary Dx); | | | | | [place] [address] | Pacemaker; | | | | | [phone] | Sinoatrial node | | | | | | dysfunction (HCC) | | | | | | with symptomatic | | | | | | bradycardia | +--------+ + + + + | 08/21/ | Implant | Cardiology | Daljit Singletary, | Remote Device | | 2019 | Monitor | | MD [address] [place] | Interrogation | | | | | [address], | (Primary Dx); | | | | | [place] [address] | Pacemaker; | | | | | [phone] | Sinoatrial node | | | | [...] | | | | | | [place] [address] | | | | | | [phone] | | | | | | | | +--------+ + + + + documented as of this encounter Visit Diagnoses Not on filedocumented in this encounter"
--- OUTSIDE RECORDS SUMMARY | ~2020-08-06 | XMS | Encounter Summary ---
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 | Medicine | | | | | pain | [address] | [address] | | | | | Procedures | [place] | [place], | | | | | [place] Nuclear | [place] | [place] | | | | | Stress Test | [address] | [address] | | | | | (Vasodilator | Phone: | Phone: | | | | | ) CHG | [phone] | [phone] | | | | | MYOCARDIAL | Fax: | Fax: | | | | | SPECT | [phone] | [phone] | | | | | MULTIPLE | | | | | | | STUDIES | | | +--------+--------+ + + + + Encounter Details +--------+ + + + + | Date | Type | Department | Care Team | Description | +--------+ + + + + | 12/06/ | Hospital | [facility] | Geri Angel, | Other chest pain | | 2013 | Encounter | MED CTR XRAY [address] | 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, | (Primary Dx); | | | | | [place] [address] | Pacemaker; | | | | | [phone] | Sinoatrial node | | | | | | dysfunction (HCC) | | | | | | with symptomatic | | | | | | bradycardia | +--------+ + + + + | 08/21/ | Implant | Cardiology | Daljit Singletary, | Remote Device | | 2020 | Monitor | | MD [address] | Interrogation | | | | | [facility], | (Primary Dx); | | | | | [place] [address] | Pacemaker; | | | | | [phone] | Sinoatrial node | | | | | | dysfunction (HCC) | | | | | | with symptomatic | | | | | | bradycardia | +--------+ + + + + | 08/21/ | Implant | Cardiology | Daljit Singletary, | Remote Device | | 2020 | Monitor | | MD [address] | Interrogation | | | | | [facility], | (Primary Dx); | | | | | [place] [address] | Pacemaker; | | | | | [phone] | Sinoatrial node | | | | | | dysfunction (HCC) | | | | | | with symptomatic | | | | | | bradycardia | +--------+ + + + + | 08/21/ | Implant | Cardiology | Daljit Singletary, | Remote Device | | 2019 | Monitor | | MD [address] | Interrogation | | | | | [facility], | (Primary Dx); | | | | | [place] [address] | Pacemaker; | | | | | [phone] | Sinoatrial node | | | | [...] | | | | | | [place], | | | | | | [place] [address] | | | | | | [phone] | | | | | | | [...] [facility] Diagnostic Imaging | [facility] | | Department [address] [place] [address] | [facility] | | [ rep [address]] [ rep [facility] | | st [facility]] Signed | - IMAGING | | | | | Patient Name: MOE GAY | | | Physician: JACKLYN : 1960 Age: 53 Sex: M Unit | | | #: [id number] Exam Date: 12/06/13 Location: | | | [facility] Report #: [id number] Page: | | | %(RAD)RES..mtdd.print.filter("pg") of %(RAD) | | | RES..mtdd.print.filter("tpg") | | | | | | Accession Number: [id number] | | | PERSANTINE SESTAMIBI STRESS TEST, [...] | | | | Daljit Singletary MD [facility]12/07/13 1321 <Electronically signed | | | by Daljit Singletary MD, FAC, FACP, FASNanette, FASAZ> Daljit | | | MD Gemini [facility] 12/07/13 0701 Air Compressor Operator: Jessica | | | Nhlqhtexdxivw00/16/14 0818 PARISA Garcia | | + + + + + + + + | Performing | Address | City/State/Zipcode | Phone Number | | Organization | | | | + + + + + | [facility] | [address] | [place] | [phone] | | [facility] | | [address] | | | - IMAGING | | | | + + + + + documented in this encounter Visit Diagnoses + + | Diagnosis | + + | Other chest pain | + + | Remote Device [...]
--- OUTSIDE RECORDS SUMMARY | ~2020-08-06 | XMS | Encounter Summary ---
Demographics + + + | Address | [address] | | | [place] [address] | + + + | Home Phone [...] + + | 10/25/ | Telephone | [facility] | Silvia, | Other (patient has | | 2013 | | CARDIOLOGY [address] | PARISA [place] [address] | changed his mind) | | | | [place], | [place], | | | | | [place] [address] | [place] [address] | | | | | [phone] | [phone] | | | | | | | [...] Interrogation | | | | | [place], | (Primary Dx); | | | | | [place] [address] | Pacemaker; | | | | | [phone] | Sinoatrial node | | | | | | dysfunction (HCC) | | | | | | with symptomatic | | | | | | bradycardia | +--------+ + + + + | 08/21/ | Implant | Cardiology | Daljit Singletary, | Remote Device | | 2019 | Monitor | | MD [address] [place] | Interrogation | | | | | [place], | (Primary Dx); | | | | | [place] [address] | Pacemaker; | | | | | [phone] | Sinoatrial node | | | | | | dysfunction (HCC) | | | | | | with symptomatic | | | | | | bradycardia | +--------+ + + + + | 08/21/ | Implant | Cardiology | Daljit Singletary, | Remote Device | | 2019 | Monitor | | MD [address] [place] | Interrogation | | | | | [place], | (Primary Dx); | | | | | [place] [address] | Pacemaker; | | | | | [phone] | Sinoatrial node | | | | | | dysfunction (HCC) | | | | | | with symptomatic | | | | | | bradycardia | +--------+ + + + + | 08/21/ | Implant | Cardiology | Daljit Singletary, | Remote Device | | 2019 | Monitor | | MD [address] [place] | Interrogation | | | | | [place], | (Primary Dx); | | | | | [place] [address] | Pacemaker; | | | | | [phone] | Sinoatrial node | | | | | | dysfunction (HCC) | | | | | | with symptomatic | | | | | | bradycardia | +--------+ + + + + | 08/21/ | Implant | Cardiology | SunshinecherelleShaistapawanotto, | Remote Device | | 2019 | Monitor | | MD [address] [place] | Interrogation | | | | | [place], | (Primary Dx); | | | | | [place] [address] | Pacemaker; | | | | | [phone] | Sinoatrial node | | | | [...] W | | | | | | [place], | | | | | | [place] [address] | | | | | | [phone] | | | | | | | | +--------+ + + + + documented as of this encounter Visit Diagnoses Not on filedocumented in this encounter"
--- OUTSIDE RECORDS SUMMARY | ~2020-08-06 | XMS | Encounter Summary ---
Demographics + + + | Address | [address] | | | [place] [address] | + + + | Home Phone [...] Providers + +------+ + | Care Press Catcher Name | Role | Phone | [...] + + | 11/29/ | Telephone | [facility] | Darin Gandhi | Appointment | | 2020 | | GASTROENTEROLOGY | MD Jacek [address] | | | | | [address] [place] | [address] [place] | | | | | [address] [place], [place] | [facility] [address] | | | | | [address] | [phone] | | | | | [phone] | | | +--------+ + + + [...] after receiving a call from Johanna at [facility]; she advised pt was reluctant to call; [...] | Monitor | | MD [address] | Interrogation | | | | | [place], | (Primary Dx); | | | | | [place] [address] | Pacemaker; | | | | | [phone] | Sinoatrial node | | | | | | dysfunction (HCC) | | | | | | with symptomatic | | | | | | bradycardia | +--------+ + + + + | 08/21/ | Implant | Cardiology | Daljit Singletary, | Remote Device | | 2019 | Monitor | | MD [address] | Interrogation | | | | | [place], | (Primary Dx); | | | | | [place] [address] | Pacemaker; | | | | | [phone] | Sinoatrial node | | | | | | dysfunction (HCC) | | | | | | with symptomatic | | | | | | bradycardia | +--------+ + + + + | 08/21/ | Implant | Cardiology | Daljit Singletary, | Remote Device | | 2019 | Monitor | | MD [address] | Interrogation | | | | | [place], | (Primary Dx); | | | | | [place] [address] | Pacemaker; | | | | | [phone] | Sinoatrial node | | | | | | dysfunction (HCC) | | | | | | with symptomatic | | | | | | bradycardia | +--------+ + + + + | 08/21/ | Implant | Cardiology | Daljit Singletary, | Remote Device | | 2019 | Monitor | | MD [address] | Interrogation | | | | | [place], | (Primary Dx); | | | | | [place] [address] | Pacemaker; | | | | | [phone] | Sinoatrial node | | | | | | dysfunction (HCC) | | | | | | with symptomatic | | | | | | bradycardia | +--------+ + + + + | 08/21/ | Implant | Cardiology | Daljit Singletary, | Remote Device | | 2019 | Monitor | | MD [address] | Interrogation | | | | | [place], | (Primary Dx); | | | | | [place] [address] | Pacemaker; | | | | | [phone] | Sinoatrial node | | | | [...] | | | | | | [place] [address] | | | | | | [phone] | | | | | | | | +--------+ + + + + documented as of this encounter Visit Diagnoses Not on filedocumented in this encounter"
--- OUTSIDE RECORDS SUMMARY | ~2020-08-06 | XMS | Encounter Summary ---
Demographics + + + | Address | [address] | | | [place] [address] | + + + | Home Phone [...] Providers + +------+ + | Care Pediatric Dermatologist Name | Role | Phone | + [...] + + | 05/16/ | Telephone | [facility] | Emmanuel Daniel MD | Lab Order | | 2019 | | GASTROENTEROLOGY | [address] [place] | | | | | [address] [place] | [address] [place], [place] | | | | | [address] [place], [place] | [address] | | | | | [address] | | | | | | [phone] | | | +--------+ + + + [...] stools" . He ran out of the [employer] ine about a week ago but plans to [...] day. Has appt Sep 28 GI at [facility] and he is on their waiting list. He asks if Dr Daniel would be able to get him in sooner at [facility] or even [facility] or [place]. Asks if Dr Daniel will write a letter to [facility] saying he can't wait until Sep. He was started on Viberzi by an [...] Dx); | | | | | [place] [address] | Pacemaker; | | | | | [phone] | Sinoatrial node | | | | | | dysfunction (HCC) | | | | | | with symptomatic | | | | | | bradycardia | +--------+ + + + + | 08/21/ | Implant | Cardiology | Daljit Singletary, | Remote Device | | 2019 | Monitor | | MD [address] | Interrogation | | | | | [place], | (Primary Dx); | | | | | [place] [address] | Pacemaker; | | | | | [phone] | Sinoatrial node | | | | | | dysfunction (HCC) | | | | | | with symptomatic | | | | | | bradycardia | +--------+ + + + + | 08/21/ | Implant | Cardiology | Daljit Singletary, | Remote Device | | 2019 | Monitor | | MD [address] [place] | Interrogation | | | | | [place], | (Primary Dx); | | | | | [place] [address] | Pacemaker; | | | | | [phone] | Sinoatrial node | | | | | | dysfunction (HCC) | | | | | | with symptomatic | | | | | | bradycardia | +--------+ + + + + | 08/21/ | Implant | Cardiology | Daljit Singletary, | Remote Device | | 2020 | Monitor | | MD [address] [place] | Interrogation | | | | | [place], | (Primary Dx); | | | | | [place] [address] | Pacemaker; | | | | | [phone] | Sinoatrial node | | | | | | dysfunction (HCC) | | | | | | with symptomatic | | | | | | bradycardia | +--------+ + + + + | 08/21/ | Implant | Cardiology | Daljit Singletary, | Remote Device | | 2019 | Monitor | | MD [address] | Interrogation | | | | | [address], | (Primary Dx); | | | | | [place] [address] | Pacemaker; | | | | | [phone] | Sinoatrial node | | | | [...] | | | | | | [place], | | | | | | [place] [address] | | | | | | [phone] | | | | | | | | +--------+ + + + + documented as of this encounter Visit Diagnoses Not on filedocumented in this encounter
--- OUTSIDE RECORDS SUMMARY | ~2020-08-06 | XMS | Encounter Summary ---
Demographics + + + | Address | [address] | | | [place] [address] | + + + | Home Phone [...] Providers + +------+ + | Care Analysis Engineer Name | Role | Phone | + +------+ + PCP | Unavailable | + +------+ + Encounter Details +--------+ + + + + | Date | Type | Department | Care Team | Description | +--------+ + + + + | 05/02/ | Hospital | [facility] | Jonathan, | | | 2009 | Encounter | MED CTR EMERGENCY | Martell Cr MD [address] | | | | | [place] [address] | [address] [place] | | | | | [place] | [place] [address] | | | | | [address] | [phone] | | | | | [phone] | | | +--------+ + + + [...] 2019 | Monitor | | [address] | Interrogation | | | | | [address], | (Primary Dx); | | | | | [place] [address] | Pacemaker; | | | | | [phone] | Sinoatrial node | | | | | | dysfunction (HCC) | | | | | | with symptomatic | | | | | | bradycardia | +--------+ + + + + | 08/21/ | Implant | Cardiology | Daljit Singletary, | Remote Device | | 2019 | Monitor | | MD [address] | Interrogation | | | | | [address], | (Primary Dx); | | | | | [place] [address] | Pacemaker; | | | | | [phone] | Sinoatrial node | | | | | | dysfunction (HCC) | | | | | | with symptomatic | | | | | | bradycardia | +--------+ + + + + | 08/21/ | Implant | Cardiology | Daljit Singletary, | Remote Device | | 2019 | Monitor | | MD [address] | Interrogation | | | | | [address], | (Primary Dx); | | | | | [place] [address] | Pacemaker; | | | | | [phone] | Sinoatrial node | | | | | | dysfunction (HCC) | | | | | | with symptomatic | | | | | | bradycardia | +--------+ + + + + | 08/21/ | Implant | Cardiology | Daljit Singletary | Remote Device | | 2019 | Monitor | | MD [address] | Interrogation | | | | | [address], | (Primary Dx); | | | | | [place] [address] | Pacemaker; | | | | | [phone] | Sinoatrial node | | | | | | dysfunction (HCC) | | | | | | with symptomatic | | | | | | bradycardia | +--------+ + + + + | 08/21/ | Implant | Cardiology | Daljit Singletary, | Remote Device | | 2020 | Monitor | | MD [address] | Interrogation | | | | | [address], | (Primary Dx); | | | | | [place] [address] | Pacemaker; | | | | | [phone] | Sinoatrial node | | | | [...] | | | | | | [place] [address] | | | | | | [phone] | | | | | | | | +--------+ + + + + documented as of this encounter Visit Diagnoses Not on filedocumented in this encounter"
--- OUTSIDE RECORDS SUMMARY | ~2020-08-06 | XMS | Encounter Summary ---
Demographics + + + | Address | [address] | | | [place] [address] | + + + | Home Phone [...] +------+ + | Care Director Of Business Services Name | Role | Phone | [...] Provider Unknown | | | | | [place], [place] | [phone] | | | | | [address] | | | | | | [phone] | | | +--------+ + + + [...] + + + +---------+ + + | [place]-3 Fatty | CAPS, one capsule by | [...] Dx); | | | | | [place] [address] | Pacemaker; | | | | | [phone] | Sinoatrial node | | | | | | dysfunction (HCC) | | | | | | with symptomatic | | | | | | bradycardia | +--------+ + + + + | 08/21/ | Implant | Cardiology | Daljit Singletary, | Remote Device | | 2019 | Monitor | | MD [address] [place] | Interrogation | | | | | [facility], | (Primary Dx); | | | | | [place] [address] | Pacemaker; | | | | | [phone] | Sinoatrial node | | | | | | dysfunction (HCC) | | | | | | with symptomatic | | | | | | bradycardia | +--------+ + + + + | 08/21/ | Implant | Cardiology | Daljit Singletary, | Remote Device | | 2019 | Monitor | | MD [address] [place] | Interrogation | | | | | [facility], | (Primary Dx); | | | | | [place] [address] | Pacemaker; | | | | | [phone] | Sinoatrial node | | | | | | dysfunction (HCC) | | | | | | with symptomatic | | | | | | bradycardia | +--------+ + + + + | 08/21/ | Implant | Cardiology | Daljit Singletary, | Remote Device | | 2020 | Monitor | | MD [address] [place] | Interrogation | | | | | [facility], | (Primary Dx); | | | | | [place] [address] | Pacemaker; | | | | | [phone] | Sinoatrial node | | | | | | dysfunction (HCC) | | | | | | with symptomatic | | | | | | bradycardia | +--------+ + + + + | 08/21/ | Implant | Cardiology | Daljit Singletary, | Remote Device | | 2020 | Monitor | | MD [address] [place] | Interrogation | | | | | [facility], | (Primary Dx); | | | | | [place] [address] | Pacemaker; | | | | | [phone] | Sinoatrial node | | | | [...] | | | | | | [place] [address] | | | | | | [phone] | | | | | | | [...]
--- OUTSIDE RECORDS SUMMARY | ~2020-08-06 | XMS | Encounter Summary ---
Demographics + + + | Address | [address] | | | [place] [address] | + + + | Home Phone [...] Providers + +------+ + | Care Audit Director Name | Role | Phone | [...] + | 12/23/ | Telephone | [facility] | Daljit Singletary, | Other (question | | 2015 | | CARDIOLOGY [address] | MD [address] [place] | about diet | | | | [place], | [place], | medication) | | | | [place] [address] | [place] [address] | | | | | [phone] | [phone] | | | | | | | [...] | Monitor | | [address] [place] | Interrogation | | | | | [place], | (Primary Dx); | | | | | [place] [address] | Pacemaker; | | | | | [phone] | Sinoatrial node | | | | | | dysfunction (HCC) | | | | | | with symptomatic | | | | | | bradycardia | +--------+ + + + + | 08/21/ | Implant | Cardiology | Daljit Singletary, | Remote Device | | 2019 | Monitor | | [address] [place] | Interrogation | | | | | [place], | (Primary Dx); | | | | | [place] [address] | Pacemaker; | | | | | [phone] | Sinoatrial node | | | | | | dysfunction (HCC) | | | | | | with symptomatic | | | | | | bradycardia | +--------+ + + + + | 08/21/ | Implant | Cardiology | WongsuDaljit parkinson, | Remote Device | | 2019 | Monitor | | MD [address] [place] | Interrogation | | | | | [place], | (Primary Dx); | | | | | [place] [address] | Pacemaker; | | | | | [phone] | Sinoatrial node | | | | | | dysfunction (HCC) | | | | | | with symptomatic | | | | | | bradycardia | +--------+ + + + + | 08/21/ | Implant | Cardiology | Daljit Singletary, | Remote Device | | 2019 | Monitor | | MD [address] [place] | Interrogation | | | | | [place], | (Primary Dx); | | | | | [place] [address] | Pacemaker; | | | | | [phone] | Sinoatrial node | | | | | | dysfunction (HCC) | | | | | | with symptomatic | | | | | | bradycardia | +--------+ + + + + | 08/21/ | Implant | Cardiology | Daljit Singletary, | Remote Device | | 2020 | Monitor | | MD [address] [place] | Interrogation | | | | | [place], | (Primary Dx); | | | | | [place] [address] | Pacemaker; | | | | | [phone] | Sinoatrial node | | | | [...] | | | | | | [place] [address] | | | | | | [phone] | | | | | | | | +--------+ + + + + documented as of this encounter Visit Diagnoses Not on filedocumented in this encounter"
--- OUTSIDE RECORDS SUMMARY | ~2020-08-06 | XMS | Encounter Summary ---
Demographics + + + | Address | [address] [place] [address] [address] | | | [place] [address] | + + + | Home Phone [...] [place] | | | | | [address] | | + + + + + Care Team Providers + +------+ + | Care Zipper Slide Attacher Name | Role | Phone | [...] | | | | [address] [place] | [place], [place] | | | | | for Health and | [address] | | | | | Healing, [address] | [phone] | | | | | [place], [place] | | | | | | [address] | | | | | | [phone] | | | +--------+ + + + [...]
--- OUTSIDE RECORDS SUMMARY | ~2020-08-06 | XMS | Encounter Summary ---
Demographics + + + | Address | [address] | | | [place] [address] | + + + | Home Phone [...] Providers + +------+ + | Care Supervisor Joiners Name | Role | Phone | + [...] + + | 08/06/ | Telephone | [facility] [place] | Geri Angel, | Other (issues with | | 2014 | | CARDIOLOGY [address] | SKI MOLDER [address] | edema and chest | | | | [place], | [place], [place] | pain) | | | | [place] [address] | [id number] | | | | | [phone] | | | +--------+ + + + [...] | Monitor | | MD [address] | Interrogation | | | | | [place], | (Primary Dx); | | | | | [place] [address] | Pacemaker; | | | | | [phone] | Sinoatrial node | | | | | | dysfunction (HCC) | | | | | | with symptomatic | | | | | | bradycardia | +--------+ + + + + | 08/21/ | Implant | Cardiology | Daljit Singletary, | Remote Device | | 2019 | Monitor | | MD [address] | Interrogation | | | | | [place], | (Primary Dx); | | | | | [place] [address] | Pacemaker; | | | | | [phone] | Sinoatrial node | | | | | | dysfunction (HCC) | | | | | | with symptomatic | | | | | | bradycardia | +--------+ + + + + | 08/21/ | Implant | Cardiology | SunshineDaljit villarreal, | Remote Device | | 2019 | Monitor | | MD [address] | Interrogation | | | | | [place], | (Primary Dx); | | | | | [place] [address] | Pacemaker; | | | | | [phone] | Sinoatrial node | | | | | | dysfunction (HCC) | | | | | | with symptomatic | | | | | | bradycardia | +--------+ + + + + | 08/21/ | Implant | Cardiology | Daljit Singletary, | Remote Device | | 2019 | Monitor | | MD [address] [place] | Interrogation | | | | | [place], | (Primary Dx); | | | | | [place] [address] | Pacemaker; | | | | | [phone] | Sinoatrial node | | | | | | dysfunction (HCC) | | | | | | with symptomatic | | | | | | bradycardia | +--------+ + + + + | 08/21/ | Implant | Cardiology | Daljit Singletary, | Remote Device | | 2020 | Monitor | | MD [address] | Interrogation | | | | | [place], | (Primary Dx); | | | | | [place] [address] | Pacemaker; | | | | | [phone] | Sinoatrial node | | | | [...] | | | | | | [place] [address] | | | | | | [phone] | | | | | | | | +--------+ + + + + documented as of this encounter Visit Diagnoses Not on filedocumented in this encounter"
--- OUTSIDE RECORDS SUMMARY | ~2020-08-06 | XMS | Encounter Summary ---
Demographics + + + | Address | [address] | | | [place] [address] | + + + | Home Phone [...] Team Providers + +------+ + | Care Trauma Surgeon Name | Role | Phone | [...] | 03/02/ | Telephone | [facility] [place] | Daljit Singletary, | Other | | 2013 | | CARDIOLOGY [address] | [place] [address] | | | | | [place], | [place], | | | | | [place] [address] | [place] [address] | | | | | [phone] | [phone] | | | | | | | [...] called stating he just got out of [facility] and he has an enlarged aorta. He [...] Interrogation | | | | | [place], | (Primary Dx); | | | | | [place] [address] | Pacemaker; | | | | | [phone] | Sinoatrial node | | | | | | dysfunction (HCC) | | | | | | with symptomatic | | | | | | bradycardia | +--------+ + + + + | 08/21/ | Implant | Cardiology | Daljit Singletary, | Remote Device | | 2019 | Monitor | | MD [address] [place] | Interrogation | | | | | [place], | (Primary Dx); | | | | | [place] [address] | Pacemaker; | | | | | [phone] | Sinoatrial node | | | | | | dysfunction (HCC) | | | | | | with symptomatic | | | | | | bradycardia | +--------+ + + + + | 08/21/ | Implant | Cardiology | Daljit Singletary, | Remote Device | | 2019 | Monitor | | MD [address] [place] | Interrogation | | | | | [place], | (Primary Dx); | | | | | [place] [address] | Pacemaker; | | | | | [phone] | Sinoatrial node | | | | | | dysfunction (HCC) | | | | | | with symptomatic | | | | | | bradycardia | +--------+ + + + + | 08/21/ | Implant | Cardiology | Daljit Singletary, | Remote Device | | 2020 | Monitor | | MD [address] [place] | Interrogation | | | | | [place], | (Primary Dx); | | | | | [place] [address] | Pacemaker; | | | | | [phone] | Sinoatrial node | | | | | | dysfunction ([facility]) | | | | | | with symptomatic | | | | | | bradycardia | +--------+ + + + + | 08/21/ | Implant | Cardiology | Daljit Singletary, | Remote Device | | 2020 | Monitor | | MD [address] | Interrogation | | | | | [place], | (Primary Dx); | | | | | [place] [address] | Pacemaker; | | | | | [phone] | Sinoatrial node | | | | [...] | | | | | | [place] [id number] | | | | | | [phone] | | | | | | | | +--------+ + + + + documented as of this encounter Visit Diagnoses Not on filedocumented in this encounter
--- OUTSIDE RECORDS SUMMARY | ~2020-08-06 | XMS | Encounter Summary ---
Demographics + + + | Address | [address] | | | [place] [address] | + + + | Home Phone [...] Team Providers + +------+ + | Care Returns Clerk Name | Role | Phone | + +------+ + PCP | Unavailable | + +------+ + Encounter Details +--------+ + + + + | Date | Type | Department | Care Team | Description | +--------+ + + + + | 05/13/ | [facility] | [facility] | Dom Graham, | | | 2010 | Encounter | MED CTR EMERGENCY | [address] | | | | | CENTER [address] | [place] | | | | | [place] | [address] | | | | | [address] | | | | | | [phone] | | | +--------+ + + + [...] afebrile, 97% on room air. No ac chilkoot distress. HEENT: Pupils equal and reactive to [...] home. 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 He should return to the ER if he develops any new or concerning symptoms. DICTATED BY: Dom Graham M.D. Emergency Medicine JOB #: [id number] EXT JOB #:[id number] <Electronicall y Signed by Dom Graham MD> [...] Interrogation | | | | | [place], | (Primary Dx); | | | | | [place] [address] | Pacemaker; | | | | | [phone] | Sinoatrial node | | | | | | dysfunction (HCC) | | | | | | with symptomatic | | | | | | bradycardia | +--------+ + + + + | 08/21/ | Implant | Cardiology | Daljit Singletary, | Remote Device | | 2019 | Monitor | | MD [address] | Interrogation | | | | | [place], | (Primary Dx); | | | | | [place] [address] | Pacemaker; | | | | | [phone] | Sinoatrial node | | | | | | dysfunction (HCC) | | | | | | with symptomatic | | | | | | bradycardia | +--------+ + + + + | 08/21/ | Implant | Cardiology | Daljit Singletary, | Remote Device | | 2019 | Monitor | | MD [address] | Interrogation | | | | | [place], | (Primary Dx); | | | | | [place] [address] | Pacemaker; | | | | | [phone] | Sinoatrial node | | | | | | dysfunction (HCC) | | | | | | with symptomatic | | | | | | bradycardia | +--------+ + + + + | 08/21/ | Implant | Cardiology | Daljit Singletary, | Remote Device | | 2019 | Monitor | | MD [address] | Interrogation | | | | | [place], | (Primary Dx); | | | | | [place] [address] | Pacemaker; | | | | | [phone] | Sinoatrial node | | | | | | dysfunction (HCC) | | | | | | with symptomatic | | | | | | bradycardia | +--------+ + + + + | 08/21/ | Implant | Cardiology | Daljit Singletary, | Remote Device | | 2019 | Monitor | | MD [address] | Interrogation | | | | | [place], | (Primary Dx); | | | | | [place] [address] | Pacemaker; | | | | | [phone] | Sinoatrial node | | | | [...] W | | | | | | [place], | | | | | | [place] [address] | | | | | | [phone] | | | | | | | [...] + | [facility] | [address] | [place], [place] | [phone] | | [facility] | | [address] | | | - LABORATORY | | | | + + + + + | [facility] | [address] | [place] | | | [facility] | | [address] [place] [address] | | | - LABORATORY | | [...] + | [facility] | [address] | [place] | [phone] | | [facility] | | [address] | | | - LABORATORY | | | | + + + + + | [facility] | [address] | [place] | | | [facility] | | [address], [facility] | | | [...] [address] | [place] | [phone] | | [facility] | | [address] | | | - LABORATORY | | | | + + + + + | [facility] | [address] | [place] | | | [facility] | | [address], [facility] | | | [...] | | | | | the [place] | | | | | | Access Analyzer. | | | | + + + + + + + + | Specimen | + + | | + + + + + + + | Performing | Address | City/State/Zipcode | Phone Number | | Organization | | | | + + + + + | [facility] | [address] | [place], [place] | [phone] | | [facility] | | [address] | | | - LABORATORY | | | | + + + + + | [facility] | [address] | [place], [place] | | | [facility] | | [address], [facility] | | | - LABORATORY | | | | + + + + + XR Chest AP Portable (05/13/2011 3:01 PM PDT) + + | Specimen | + + | | + + + + + | Narrative | Performed At | + + + | [facility] | [facility] | | [address] [facility] | [facility] | | PORTABLE CHEST CLINICAL [...] Transcribed Date/Time: | | | 05/13/2011 17:06 Spare Fixer: <Electronically Signed | | | by Jama Solis MD> 05/13/112038 | | + + + + + | Procedure Note | + + | Kevin, Rad Conversion - 12/29/2013 3:[address] [facility] | | Diagnostic Imaging Department [address] [facility] | | PORTABLE CHEST CLINICAL HISTORY: [...] by Jama Solis MD> 05/13/11 | | 9 | | | |FINDINGS: Dual chamber cardiac [...] 16:57 | |Transcribed Date/Time: 05/13/2011 17:06 | |Spare Fixer: | |<Electronically Signed by Jama Solis MD> [...]
--- OUTSIDE RECORDS SUMMARY | ~2020-08-06 | XMS | Encounter Summary ---
Demographics + + + | Address | [address] | | | [place] [address] | + + + | Home Phone [...] Providers + +------+ + | Care Spool Carrier Name | Role | Phone | [...] Hellberg, Geri, | Medication Refill | | 2017 | | CARDIOLOGY [address] | EHS ENGINEER [address] [place] | | | | | [place], | [place], [place] | | | | | [place] [address] | [address] | | | | | [phone] | | | +--------+--------+ + + + [...] | | 2019 | Monitor | | [place] [address] [facility] | Interrogation | | | | | [place], | (Primary Dx); | | | | | [place] [address] | Pacemaker; | | | | | [phone] | Sinoatrial node | | | | | | dysfunction ([facility]) | | | | | | with symptomatic | | | | | | bradycardia | +--------+ + + + + | 08/21/ | Implant | Cardiology | Daljit Singletary, | Remote Device | | 2020 | Monitor | | MD [address] [place] | Interrogation | | | | | [place], | (Primary Dx); | | | | | [place] [address] | Pacemaker; | | | | | [phone] | Sinoatrial node | | | | | | dysfunction (HCC) | | | | | | with symptomatic | | | | | | bradycardia | +--------+ + + + + | 08/21/ | Implant | Cardiology | Daljit Singletary, | Remote Device | | 2019 | Monitor | | MD [address] [place] | Interrogation | | | | | [place], | (Primary Dx); | | | | | [place] [address] | Pacemaker; | | | | | [phone] | Sinoatrial node | | | | | | dysfunction (HCC) | | | | | | with symptomatic | | | | | | bradycardia | +--------+ + + + + | 08/21/ | Implant | Cardiology | Daljit Singletary, | Remote Device | | 2019 | Monitor | | MD [address] [place] | Interrogation | | | | | [place], | (Primary Dx); | | | | | [place] [address] | Pacemaker; | | | | | [phone] | Sinoatrial node | | | | | | dysfunction (HCC) | | | | | | with symptomatic | | | | | | bradycardia | +--------+ + + + + | 08/21/ | Implant | Cardiology | Daljit Singletary, | Remote Device | 2019 | Monitor | | MD [address] [place] | Interrogation | | | | | [place], | (Primary Dx); | | | | | [place] [address] | Pacemaker; | | | | | [phone] | Sinoatrial node | | | | [...] W | | | | | | [place], | | | | | | [place] [address] | | | | | | [phone] | | | | | | | | +--------+ + + + + documented as of this encounter Visit Diagnoses Not on filedocumented in this encounter"
--- OUTSIDE RECORDS SUMMARY | ~2020-08-06 | XMS | Encounter Summary ---
Demographics + + + | Address | [address] | | | [place] [address] | + + + | Home Phone [...] + + | 04/12/ | Telephone | [facility] | Daljit Singletary, | Other (issues with | | 2017 | | CARDIOLOGY [address] | [address] [place] | low blood pressure | | | | [place], | [place], | and dizziness) | | | | [place] [address] | [place] [address] | | | | | [phone] | [phone] | | | | | | | [...] Darlene Tirado RN - 04/12/2017 10:01 AM PDTFred called, he states that recently he has [...] Interrogation | | | | | [place], | (Primary Dx); | | | | | [place] [address] | Pacemaker; | | | | | [phone] | Sinoatrial node | | | | | | dysfunction (HCC) | | | | | | with symptomatic | | | | | | bradycardia | +--------+ + + + + | 08/21/ | Implant | Cardiology | Daljit Singletary, | Remote Device | | 2019 | Monitor | | MD [address] [place] | Interrogation | | | | | [place], | (Primary Dx); | | | | | [place] [address] | Pacemaker; | | | | | [phone] | Sinoatrial node | | | | | | dysfunction (HCC) | | | | | | with symptomatic | | | | | | bradycardia | +--------+ + + + + | 08/21/ | Implant | Cardiology | Daljit Singletary, | Remote Device | | 2019 | Monitor | | MD [address] [place] | Interrogation | | | | | [place], | (Primary Dx); | | | | | [place] [address] | Pacemaker; | | | | | [phone] | Sinoatrial node | | | | | | dysfunction (HCC) | | | | | | with symptomatic | | | | | | bradycardia | +--------+ + + + + | 08/21/ | Implant | Cardiology | Daljit Singletary, | Remote Device | | 2019 | Monitor | | MD [address] [place] | Interrogation | | | | | [place], | (Primary Dx); | | | | | [place] [address] | Pacemaker; | | | | | [phone] | Sinoatrial node | | | | | | dysfunction (HCC) | | | | | | with symptomatic | | | | | | bradycardia | +--------+ + + + + | 08/21/ | Implant | Cardiology | Anshushaistatesha Shaistapawanotto, | Remote Device | | 2019 | Monitor | | [address] [place] | Interrogation | | | | | [place], | (Primary Dx); | | | | | [place] [address] | Pacemaker; | | | | | [phone] | Sinoatrial node | | | | [...] | | | | | | [place] [address] | | | | | | [phone] | | | | | | | | +--------+ + + + + documented as of this encounter Visit Diagnoses Not on filedocumented in this encounter"
--- OUTSIDE RECORDS SUMMARY | ~2020-08-06 | XMS | Encounter Summary ---
Demographics + + + | Address | [address] | | | [place] [address] | + + + | Home Phone [...] Providers + +------+ + | Care Meat Counter Worker Name | Role | Phone [...] [address] | | | | | | [place], [place] | (Fax) | | | | | [address] | | | | | | [phone] | | | +--------+ + + + [...] Dx); | | | | | [place] [address] | Pacemaker; | | | | | [phone] | Sinoatrial node | | | | [...] Dx); | | | | | [place] [address] | Pacemaker; | | | | | [phone] | Sinoatrial node | | | | [...] Dx); | | | | | [place] [address] | Pacemaker; | | | | | [phone] | Sinoatrial node | | | | [...] Dx); | | | | | [place] [address] | Pacemaker; | | | | | [phone] | Sinoatrial node | | | | [...] Dx); | | | | | [place] [address] | Pacemaker; | | | | | [phone] | Sinoatrial node | | | | [...] | | | | | | [place] [address] | | | | | | [phone] | | | | | | | | +--------+ + + + + documented as of this encounter Visit Diagnoses Not on filedocumented in this encounter"
--- OUTSIDE RECORDS SUMMARY | ~2020-08-06 | XMS | Encounter Summary ---
Demographics + + + | Address | [address] | | | [place] [address] | + + + | Home Phone [...] Team Providers + +------+ + | Care Transverse Abdominal Muscle Nurse Name | Role | Phone | [...] | | | | Procedures | | [place], | | | | | [place] | | [place] [address] | | | | | CYSTO/URETER | [...] + + | 04/13/ | Surgery | [facility] | Matthew Uriarte | Cystoscopy, Left | | 2019 | | MED CTR OR INTRA OP | MD Tawanna [address] | ureteroscopy with | | | | [address] | [address] | laser lithotripsy, | | | | [place] | [place], [place] | Left ureteral stent | | | | [address] | [address] | placement | | | | [phone] | [phone] | | | | | | (Fax) [...] Care Everywhere.Kidney Stones, Treating: Ureteroscopic Stone Removal (Brazilian)Stents, Ureteral (Brazilian)documented in this encounter Medications at Time of [...] + + + +---------+ + + | [place]-3 Fatty | CAPS, one capsule by | [...] | | | | | | | takotna coronary | | | | | | | artery of takotna | | | | | | | [...] signed by: Matthew Uriarte MD, 04/13/2019 8:09 [facility] Jaron Galaviz MD - 04/07/2019 9:45 AM [...] [employer] Peptic ulcer disease Premature ventricular contraction [facility] care 06/26/2013 LAST PSA:12/16/2010 RESULT:0.14 LAST [...] ABLATION Bilateral 04/03/2013 x3 Laser APPENDECTOMY [facility] CARDIAC CATHERIZATION 12/25/13 Left CARDIAC CATHERIZATION N/A 01/25/2019 Procedure: CV LHC; Surgeon: Daljit Singletary MD; Location: [facility] CV LAB CARDIAC CATHERIZATION N/A 01/25/2019 Procedure: CV Cor Angio; Surgeon: Daljit Singletary MD; Location: [facility] CV LAB COLONOSCOPY N/A 12/24/2017 Procedure: COLONOSCOPY; Surgeon: Emmanuel Daniel MD; Location: [facility] MEDICAL PROCEDURE UNIT COLONOSCOPY N/A 01/05/2019 Procedure: COLONOSCOPY; Surgeon: Emmanuel Daniel MD; Location: [facility] MEDICAL PROCEDURE UNIT EGD 12/24/2017 [...] EGD; Surgeon: Emmanuel Daniel MD; Location: [facility] MEDICAL PROCEDURE UNIT UPPER GASTROINTESTINAL ENDOSCOPY N/A 01/05/2019 Procedure: EGD; Surgeon: Emmanuel Daniel MD; Location: [facility] MEDICAL PROCEDURE UNIT VASECTOMY Family [...] 911, Disp: 100 ta blet, Rfl: 3 [place]-3 Fatty Acids (SALMON OIL-1000 PO), CAPS, one [...] have not thoroughly proofread this note, and condemnation engineer errors are very likely to occur. CC: Kirk French MD documented in this encounter Miscellaneous Notes Op Note - Kalani, Matthew Stacy MD - 04/13/2019 1:03 PM PDTOperative Note Pt. Name/Age/: Moe Sanchez 59 y.o. 1960 [facility]. Record Number: [id number] Date of admission: 04/13/2019 Date of Operation/Procedure: 04/13/2019 Preoperative Diagnosis: Kidney stone Postoperative Diagnosis: same Surgeon: Matthew Uriarte MD Final Inspector And Tester(s): none Anesthesia Provider(s): Anesthesiologist: Jay Benjamin MD [...] leave strings on the stent. A 6 Lebanese variable length stent was then placed over [...] Electronically Signed by: Matthew Uriarte, 04/13/2019 13:04 [facility] documented in this encounter Plan of Treatment +--------+ + + + + | Date | Type | Specialty | Care Team | Description | +--------+ + + + + | 08/21/ | Implant | Cardiology | Daljit Singletary, | Remote Device | | 2019 | Monitor | | MD [address] | Interrogation | | | | | [place], | (Primary Dx); | | | | | [place] [address] | Pacemaker; | | | | | [phone] | Sinoatrial node | | | | [...] | | | | | [place], | (Primary Dx); | | | | | [place] [address] | Pacemaker; | | | | | [phone] | Sinoatrial node | | | | [...] | | | | | [place], | (Primary Dx); | | | | | [place] [address] | Pacemaker; | | | | | [phone] | Sinoatrial node | | | | [...] | | | | | [place], | (Primary Dx); | | | | | [place] [address] | Pacemaker; | | | | | [phone] | Sinoatrial node | | | | [...] | | | | | [place], | (Primary Dx); | | | | | [place] [address] | Pacemaker; | | | | | [phone] | Sinoatrial node | | | | [...] | | | | | | [place], | | | | | | [place] [address] | | | | | | [phone] | | | | | | | [...] [facility] | | | | | | at:[phone]. | | | | + + + [...] | | | | | d by [facility]. It has not | | | | [...] + | Performed at: [address], | REFERENCE LAB | | RA[place] [id number] Shelter Director: Yeny Rios MD, Phone: | ARSH CASTANON | | [phone] | | + + + + + + + + | Performing | Address | City/State/Zipcode | Phone Number | | Organization | | | | + + + + + | REFERENCE LAB | [address] | [place], [place] | [phone] | | [facility] | [address] | [address] | | + + + + + [...] [address] | [place] | [phone] | | [facility] | | [address] | | | - LABORATORY | | [...] + | [facility] | [address] | [place] | [phone] | | [facility] | | [address] | | | - LABORATORY | | [...] [address] | [place] | [phone] | | [facility] | | [address] | | | - LABORATORY | | [...] + | [facility] | [address] | [place] | [phone] | | [facility] | | [address] | | | - LABORATORY | | [...] mL/min/1.73m2 | [facility] | | | Turkmen | RATE,ESTIMATED | | MEDICAL | | | | mL/min/1.75j4Afkp than | | CENTER - | | [...] [facility] | [address] | [place] | [phone] | | [facility] | | [address] | | | - LABORATORY | | | | + + + + + documented in this encounter Visit Diagnoses + + | Diagnosis | + + | Left ureteral calculus Calculus of ureter | + + | Remote Device Interrogation [...] First | | | dose on [facility] 04/13/19 at 1400, | | | Start 8 hours after pre-op dose., | | | Post-op/Phase II | | + +---+ | | | + +---+ | albuterol 2.5 mg/3 mL nebulizer | | | solution 2.5 mg 2.5 mg, | | | Nebulization, ONCE PRN, Wheezing, | | | Starting [facility] 04/13/19 at 0917, | | | For [...] < 40, | | | Starting [facility] 04/13/19 at 0917, For | | | [...] | | | | | | | [id number]-[id number] use of at least | | | [...]
--- OUTSIDE RECORDS SUMMARY | ~2020-08-06 | XMS | Encounter Summary ---
Demographics + + + | Address | [address] | | | [place] [address] | + + + | Home Phone [...] Providers + +------+ + | Care Case Technician Name | Role | Phone | [...] | Refill | [facility] [place] | [place], | Medication Refill | | 2014 | | CARDIOLOGY [address] | [place] [address] | | | | | [place], | [place], | | | | | [place] [address] | [place] [address] | | | | | [phone] | [phone] | | | | | | | [...] | Monitor | | MD [address] [place] | Interrogation | | | | | [place], | (Primary Dx); | | | | | [place] [address] | Pacemaker; | | | | | [phone] | Sinoatrial node | | | | | | dysfunction ([facility]) | | | | | | with symptomatic | | | | | | bradycardia | +--------+ + + + + | 08/21/ | Implant | Cardiology | Daljit Singletary, | Remote Device | | 2019 | Monitor | | MD [address] [place] | Interrogation | | | | | [place], | (Primary Dx); | | | | | [place] [address] | Pacemaker; | | | | | [phone] | Sinoatrial node | | | | | | dysfunction (HCC) | | | | | | with symptomatic | | | | | | bradycardia | +--------+ + + + + | 08/21/ | Implant | Cardiology | Daljit Singletary, | Remote Device | | 2019 | Monitor | | MD [address] [place] | Interrogation | | | | | [place], | (Primary Dx); | | | | | [place] [address] | Pacemaker; | | | | | [phone] | Sinoatrial node | | | | | | dysfunction (HCC) | | | | | | with symptomatic | | | | | | bradycardia | +--------+ + + + + | 08/21/ | Implant | Cardiology | Daljit Singletary, | Remote Device | | 2019 | Monitor | | MD [address] [place] | Interrogation | | | | | [place], | (Primary Dx); | | | | | [place] [address] | Pacemaker; | | | | | [phone] | Sinoatrial node | | | | [...] Dx); | | | | | [place] [address] | Pacemaker; | | | | | [phone] | Sinoatrial node | | | | [...] W | | | | | | [place], | | | | | | [place] [address] | | | | | | [phone] | | | | | | | | +--------+ + + + + documented as of this encounter Visit Diagnoses Not on filedocumented in this encounter"
--- OUTSIDE RECORDS SUMMARY | ~2020-08-06 | XMS | Encounter Summary ---
Demographics + + + | Address | [address] | | | [place] [address] | + + + | Home Phone [...] + +------+ + | Care Operations Research Group Manager Name | Role | Phone [...] + + | 05/28/ | Refill | [facility] | Kirk French | Medication Refill | | 2019 | | [facility] | MD Bre[address] | | | | | [facility] [address] | [address] | | | | | [address] | [place] [address] | | | | | [place], [place] | [phone] | | | | | [address] | | | | | | [phone] | | | +--------+--------+ + + + [...] Miscellaneous Notes Telephone Encounter - Geri Bear Accountant Budget - 05/29/2020 10:29 AM PDTJulio César ov doc umaguila in this encounter Plan of Treatment +--------+ + + + + | Date | Type | Specialty | Care Team | Description | +--------+ + + + + | 09/30/ | Implant | Cardiology | Daljit Singletary, | Remote Device | | 2019 | Monitor | | MD [address] | Interrogation | | | | | [place], | (Primary Dx); | | | | | [place] [address] | Pacemaker; | | | | | [phone] | Sinoatrial node | | | | | | dysfunction (HCC) | | | | | | with symptomatic | | | | | | bradycardia | +--------+ + + + + | 08/21/ | Implant | Cardiology | Daljit Singletary, | Remote Device | | 2019 | Monitor | | MD [address] | Interrogation | | | | | [place], | (Primary Dx); | | | | | [place] [address] | Pacemaker; | | | | | [phone] | Sinoatrial node | | | | | | dysfunction (HCC) | | | | | | with symptomatic | | | | | | bradycardia | +--------+ + + + + | 08/21/ | Implant | Cardiology | Daljit Singletary, | Remote Device | | 2020 | Monitor | | MD [address] | Interrogation | | | | | [place], | (Primary Dx); | | | | | [place] [address] | Pacemaker; | | | | | [phone] | Sinoatrial node | | | | | | dysfunction (HCC) | | | | | | with symptomatic | | | | | | bradycardia | +--------+ + + + + | 08/21/ | Implant | Cardiology | Daljit Singletary, | Remote Device | | 2019 | Monitor | | MD [address] | Interrogation | | | | | [place], | (Primary Dx); | | | | | [place] [address] | Pacemaker; | | | | | [phone] | Sinoatrial node | | | | | | dysfunction (HCC) | | | | | | with symptomatic | | | | | | bradycardia | +--------+ + + + + | 08/21/ | Implant | Cardiology | Daljit Singletary, | Remote Device | | 2019 | Monitor | | MD [address] | Interrogation | | | | | [place], | (Primary Dx); | | | | | [place] [address] | Pacemaker; | | | | | [phone] | Sinoatrial node | | | | [...] | | | | | | [place] [address] | | | | | | [phone] | | | | | | | | +--------+ + + + + documented as of this encounter Visit Diagnoses Not on filedocumented in this encounter"
--- OUTSIDE RECORDS SUMMARY | ~2020-08-06 | XMS | Encounter Summary ---
Demographics + + + | Address | [address] | | | [place] [address] | + + + | Home Phone [...] Team Providers + +------+ + | Care Conductor Symphonic Orchestra Name | Role | Phone | + +------+ + | Kirk French MD | PCP | | + +------+ + Encounter Details +--------+ + + + + | Date | Type | Department | Care Team | Description | +--------+ + + + + | 01/25/ | Emergency | [facility] | Donald Callahan, | Strain of lumbar | | 2017 | | [facility]ICAL CENTER | DO Russ [address] | paraspinal muscle, | | | | EMERGENCY CENTER | [address] | initial encounter; | | | | [address] | [place], [place] | Left hip pain | | | | [place], [place] | [address] | | | | | [address] | | | | | | [phone] | | | +--------+ + + + [...] + + + +---------+ + + | Gepp-3 Fatty | CAPS, one capsule by | [...] this note might be different from t christopher original. ED Provider Notes by Perez Montoya PA-C at 01/25/17 2231 Author: Perez Montoya PA-C Service: Emergency Department Author Type: Physician Bridge Club Manager - Certified Filed: 01/25/17 2157 Date of Service: 01/25/17 4632 Status: Signed Machine Tank Operator: Perez Montoya PA-C (Physician Bridge Club Manager - Certified) Cosigner: Russ riley DO at 01/28/17 1225 Procedures LOCATED WITHIN [facility] EMERGENCY DEPARTMENT History of Present Illness Patient [...] follow-up appointment with his orthopedist tomorrow in [place]. Past Medical History Diagnosis Date Hyperlipidemia Hypertension Back pain Other chronic pain PVC (premature ventricular contraction) Sleep apnea Bipolar 1 disorder (HCC) Anxiety and depression Fibromyalgia Thrombocytopenia (HCC) Fatigue Abdominal pain Chronic neck pain Syncope Insomnia Ulcerative colitis (HCC) Sinoatrial node dysfunction (HCC) Pacemaker Hep B w/o coma PUD (peptic ulcer disease) Fatty liver disease, nonalcoholic Hypoglycemia Tachycardia CAD (coronary artery disease), eklutna artery transplanted heart Thoracic ascending aortic aneurysm (HCC) Multiple substance abuse Cannabis abuse Chronic pain syndrome Past Surgical History Procedure Laterality Date Spine surgery Abdominal surgery adhesions removed Pacemaker insertion Laser ablation x3 Cardiac catheterization Hardware removal Appendectomy Lee Ramírez Knee arthroscopy Bilateral Shoulder surgery Bilateral Rotator Cuff Repairs Spinal fusion 4 Cervical fusions; [place] Spinal fusion 2 Lumbar Fusions; [place] Prior to Admission medications Medication [...] mouth 2 (two) times daily. Historical [facility] (OSTEO BI-FLEX ADV JOINT SHIELD [...] Education: 12 Occupational History Disabled Retired from [employer] Social History Main Topics Smoking status: [...] MD In 1 day as scheduled [address] [facility] [place] [address] [facility] Emergency Department If symptoms worsen [address] [place] [address] Discharge Medications: Discharge Medication List as of 01/25/2017 3:24 PM Perez Montoya PA-C 01/25/17 2157 onversion Tr ansaction, Provider Unknown - 01/25/2017 2:13 PM PSTFormatting of this note might be differ ent from the original. ED Notes by Jessica Arellano RN at 01/25/17 1419 Author: Jessica Arellano RN Service: (none) Author Type: Registered Nurse Filed: 01/25/17 1414 Date of Service: 01/25/171412 Status: Signed Machine Tank Operator: Jessica Arellano RN (Registered Nurse) C/o l hip pain ''since 1980 but i fell a year ago and it has been worse since then''. Pt am bulatory, appears in nad Jessica Arellano RN 01/25/17 6338 Karen pfeiffer in this encounter Plan of Treatment +--------+ + + + + | Date | Type | Specialty | Care Team | Description | +--------+ + + + + | 08/21/ | Implant | Cardiology | Daljit Singletary, | Remote Device | | 2019 | Monitor | | MD Chiquis Oro | Interrogation | | | | | [place], | (Primary Dx); | | | | | [place] [address] | Pacemaker; | | | | | [phone] | Sinoatrial node | | | | | | dysfunction (HCC) | | | | | | with symptomatic | | | | | | bradycardia | +--------+ + + + + | 08/21/ | Implant | Cardiology | Daljit Singletary, | Remote Device | | 2019 | Monitor | | MD [address] [place] | Interrogation | | | | | [place], | (Primary Dx); | | | | | [place] [address] | Pacemaker; | | | | | [phone] | Sinoatrial node | | | | | | dysfunction (HCC) | | | | | | with symptomatic | | | | | | bradycardia | +--------+ + + + + | 08/21/ | Implant | Cardiology | Daljit Singletary, | Remote Device | | 2019 | Monitor | | MD [address] [place] | Interrogation | | | | | [place], | (Primary Dx); | | | | | [place] [address] | Pacemaker; | | | | | [phone] | Sinoatrial node | | | | | | dysfunction (HCC) | | | | | | with symptomatic | | | | | | bradycardia | +--------+ + + + + | 08/21/ | Implant | Cardiology | Daljit Singletary, | Remote Device | | 2019 | Monitor | | MD [address] [place] | Interrogation | | | | | [place], | (Primary Dx); | | | | | [place] [address] | Pacemaker; | | | | | [phone] | Sinoatrial node | | | | | | dysfunction (HCC) | | | | | | with symptomatic | | | | | | bradycardia | +--------+ + + + + | 08/21/ | Implant | Cardiology | Daljit Singletary, | Remote Device | | 2019 | Monitor | | MD [address] [place] | Interrogation | | | | | [place], | (Primary Dx); | | | | | [place] [address] | Pacemaker; | | | | | [phone] | Sinoatrial node | | | | [...] W | | | | | | [place], | | | | | | [place] [address] | | | | | | [phone] | | | | | | | [...] Conversion - 07/06/2019 12:12 AM PDT PINA [id number] years [id number] | | LUMBAR SPINE LIMITED [...] pelvic region and thigh | + + | Remote Device Interrogation [...]
--- OUTSIDE RECORDS SUMMARY | ~2020-08-06 | XMS | Encounter Summary ---
Demographics + + + | Address | [address] | | | [place] [address] | + + + | Home Phone [...] Providers + +------+ + | Care Cloth Finishing Range Operator Chief Name | Role | Phone | + +------+ + | Michael Amanda DO | PCP | | + +------+ + Encounter Details +--------+ + + + + | Date | Type | Department | Care Team | Description | +--------+ + + + + | 12/25/ | Hospital | [facility] | Daljit Singletary, | | | 2013 | Encounter | MED CTR XRAY [address] | | | | | [address] [place] | [address] [place], | | | | | [place] [address] | [place] [address] | | | | | [phone] | [phone] | | | | | | | [...] + + +---------+ + + | [place]-3 Fatty | CAPS, one capsule by [...] 2019 | Monitor | | [address] | Interrogation | | | | | [place], | (Primary Dx); | | | | | [place] [address] | Pacemaker; | | | | | [phone] | Sinoatrial node | | | | | | dysfunction (HCC) | | | | | | with symptomatic | | | | | | bradycardia | +--------+ + + + + | 08/21/ | Implant | Cardiology | Daljit Singletary, | Remote Device | | 2019 | Monitor | | [address] | Interrogation | | | | | [place], | (Primary Dx); | | | | | [place] [address] | Pacemaker; | | | | | [phone] | Sinoatrial node | | | | | | dysfunction (HCC) | | | | | | with symptomatic | | | | | | bradycardia | +--------+ + + + + | 08/21/ | Implant | Cardiology | WongsuDaljit parkinson, | Remote Device | | 2019 | Monitor | | MD [address] | Interrogation | | | | | [place], | (Primary Dx); | | | | | [place] [address] | Pacemaker; | | | | | [phone] | Sinoatrial node | | | | | | dysfunction (HCC) | | | | | | with symptomatic | | | | | | bradycardia | +--------+ + + + + | 08/21/ | Implant | Cardiology | Daljit Singletary, | Remote Device | | 2019 | Monitor | | MD [address] | Interrogation | | | | | [place], | (Primary Dx); | | | | | [place] [address] | Pacemaker; | | | | | [phone] | Sinoatrial node | | | | | | dysfunction (HCC) | | | | | | with symptomatic | | | | | | bradycardia | +--------+ + + + + | 08/21/ | Implant | Cardiology | Daljit Singletary, | Remote Device | | 2020 | Monitor | | MD [address] | Interrogation | | | | | [place], | (Primary Dx); | | | | | [place] [address] | Pacemaker; | | | | | [phone] | Sinoatrial node | | | | [...] W | | | | | | [place], | | | | | | [place] [address] | | | | | | [phone] | | | | | | | [...] Performed At | + + + | [facility] | [facility] | | Department [address] [place] [address] | [facility] | | [ rep [address]] [ [facility] | MEDICAL CENTER | | st zip] Signed | - IMAGING | | | | | Patient Name: MOE GAY | | | Physician: MIGUELINA : 1960 Age: 53 Sex: M Unit | | | #: [id number] Exam Date: 12/25/13 Location: | | | [facility] SDS-D Report #: [id number] Page: | | | %(RAD)RES..mtdd.print.filter("pg") of %(RAD) | | | RES..mtdd.print.filter("tpg") | | | | | | Accession Number: [id number] | | | LEFT HEART CATHETERIZATION, 12/25/2013 [...] patient was taken to the cardiac general laborer. She | | | was prepared and draped in the usual fashion. Under sterile | | | technique and local anesthesia, percutaneous access was obtained | | | using #5 Portuguese sheath in the right radial artery. Right heart cath | | | was not performed on this patient. Left ventriculography was | | | performed using #5 multipurpose diagnostic catheter. The selective | | | coronary angiography was then performed in several sagittal and | | | oblique projections using #5 multipurpose and #5 Portuguese JL 3.5 | | | diagnostic catheters. [...] Transcribed | | | Date/Time: 12/25/2013 11:52 Range Technician: | | | <<Signature on File>> | | | Suwong | | | MD [facility]12/25/13 1343 <Electronically signed by | | | Daljit Singletary MD, [facility], [facility], [facility], [facility]> Rashadong | | | MD Gemini [facility] 12/25/13 1035 Range Technician: Jessica | | | Ppgddmndmuvtv75/03/14 1152 | | + + + + + + + + | Performing | Address | City/State/Zipcode | Phone Number | | Organization | | | | + + + + + | [facility] | [address] | [place] | [phone] | | [facility] | | [address] | | | - IMAGING | | | | + + + + + documented in this encounter Visit Diagnoses Not on filedocumented in this encounter
--- OUTSIDE RECORDS SUMMARY | ~2020-08-06 | XMS | Encounter Summary ---
Demographics + + + | Address | [address] | | | [place] [address] | + + + | Home Phone [...] Providers + +------+ + | Care Grocery Checker Name | Role | Phone | [...] | disease involving | | | | [place], | [place], | [place] coronary | | | | [place] [address] | [place] [address] | artery without | | | | [phone] | [phone] | angina pectoris | | | | [...] | Monitor | | MD [address] [place] | Interrogation | | | | | [place], | (Primary Dx); | | | | | [place] [address] | Pacemaker; | | | | | [phone] | Sinoatrial node | | | | | | dysfunction (HCC) | | | | | | with symptomatic | | | | | | bradycardia | +--------+ + + + + | 08/21/ | Implant | Cardiology | Daljit Singletary | Remote Device | | 2019 | Monitor | | MD [address] [place] | Interrogation | | | | | [place], | (Primary Dx); | | | | | [place] [address] | Pacemaker; | | | | | [phone] | Sinoatrial node | | | | | | dysfunction (HCC) | | | | | | with symptomatic | | | | | | bradycardia | +--------+ + + + + | 08/21/ | Implant | Cardiology | Daljit Singletary, | Remote Device | | 2019 | Monitor | | MD [address] [place] | Interrogation | | | | | [place], | (Primary Dx); | | | | | [place] [address] | Pacemaker; | | | | | [phone] | Sinoatrial node | | | | | | dysfunction (HCC) | | | | | | with symptomatic | | | | | | bradycardia | +--------+ + + + + | 08/21/ | Implant | Cardiology | Daljit Singletary, | Remote Device | | 2019 | Monitor | | MD [address] [place] | Interrogation | | | | | [place], | (Primary Dx); | | | | | [place] [address] | Pacemaker; | | | | | [phone] | Sinoatrial node | | | | | | dysfunction (HCC) | | | | | | with symptomatic | | | | | | bradycardia | +--------+ + + + + | 08/21/ | Implant | Cardiology | SunshinecherelleShaistapawanotto, | Remote Device | | 2019 | Monitor | | MD [address] [place] | Interrogation | | | | | [place], | (Primary Dx); | | | | | [place] [address] | Pacemaker; | | | | | [phone] | Sinoatrial node | | | | [...] | | | | | | [place] [address] | | | | | | [phone] | | | | | | | [...] DALJIT | | | | | | ([id number]) on 08/29/2015 | | | | | [...] + + | Coronary artery disease involving [place] coronary artery without angina pectoris - | | Primary | + + | Remote Device [...]
--- OUTSIDE RECORDS SUMMARY | ~2020-08-06 | XMS | Encounter Summary ---
Demographics + + + | Address | [address] | | | [place] [address] | + + + | Home Phone [...] Providers + +------+ + | Care Aerospace Quality Engineer Name | Role | Phone [...] + + | 05/30/ | Telephone | [facility] | Kirk French | Medication Reaction | | 2019 | | [facility] | MD Brea [address] | | | | | [facility] [address] | | | | | [address] | [place] [address] | | | | | [place], [place] | [phone] | | | | | [address] | | | | | | [phone] | | | +--------+ + + + [...] then OK to dc do not sto lorraine suddel]=nly ele phone Encounter - Anh Reina [...] alized understanding of this. elephone Encounter - Tegan Obrien - 05/30/2020 3:41 PM PDTFred, is calling [...] transfer the call to a lorraine bellamy dyed yarn operator was caller made aware that if [...] Dx); | | | | | [place] [address] | Pacemaker; | | | | | [phone] | Sinoatrial node | | | | | | dysfunction (HCC) | | | | | | with symptomatic | | | | | | bradycardia | +--------+ + + + + | 08/21/ | Implant | Cardiology | Daljit Singletary, | Remote Device | | 2019 | Monitor | | [address] [place] | Interrogation | | | | | [place], | (Primary Dx); | | | | | [place] [address] | Pacemaker; | | | | | [phone] | Sinoatrial node | | | | | | dysfunction (HCC) | | | | | | with symptomatic | | | | | | bradycardia | +--------+ + + + + | 08/21/ | Implant | Cardiology | Daljit Singletary, | Remote Device | | 2019 | Monitor | | MD [address] [place] | Interrogation | | | | | [place], | (Primary Dx); | | | | | [place] [address] | Pacemaker; | | | | | [phone] | Sinoatrial node | | | | | | dysfunction (HCC) | | | | | | with symptomatic | | | | | | bradycardia | +--------+ + + + + | 08/21/ | Implant | Cardiology | Daljit Singletary, | Remote Device | | 2019 | Monitor | | MD [address] [place] | Interrogation | | | | | [place], | (Primary Dx); | | | | | [place] [address] | Pacemaker; | | | | | [phone] | Sinoatrial node | | | | | | dysfunction (HCC) | | | | | | with symptomatic | | | | | | bradycardia | +--------+ + + + + | 08/21/ | Implant | Cardiology | Daljit Singletary, | Remote Device | | 2020 | Monitor | | MD [address] [place] | Interrogation | | | | | [place], | (Primary Dx); | | | | | [place] [address] | Pacemaker; | | | | | [phone] | Sinoatrial node | | | | [...] | | | | | | [place] [address] | | | | | | [phone] | | | | | | | | +--------+ + + + + documented as of this encounter Visit Diagnoses Not on filedocumented in this encounter"
--- OUTSIDE RECORDS SUMMARY | ~2020-08-06 | XMS | Encounter Summary ---
Demographics + + + | Address | [address] | | | [place] [address] | + + + | Home Phone [...] Providers + +------+ + | Care Seed Collector Name | Role | Phone | [...] + | 08/14/ | Telephone | [facility] | Michael Amanda, | Appointment | | 2012 | | [facility] [address] | DO [address] | | | | | [facility] | [place], [place] | | | | | [place], [place] | [address] | | | | | [address] | | | | | | [phone] | | | +--------+ + + + [...] | | | | | [address] [place], | (Primary Dx); | | | | | [place] [address] | Pacemaker; | | | | | [phone] | Sinoatrial node | | | | | | dysfunction (HCC) | | | | | | with symptomatic | | | | | | bradycardia | +--------+ + + + + | 08/21/ | Implant | Cardiology | Daljit Singletary, | Remote Device | | 2019 | Monitor | | MD [address] | Interrogation | | | | | [address] [place], | (Primary Dx); | | | | | [place] [address] | Pacemaker; | | | | | [phone] | Sinoatrial node | | | | | | dysfunction (HCC) | | | | | | with symptomatic | | | | | | bradycardia | +--------+ + + + + | 08/21/ | Implant | Cardiology | Daljit Singletary, | Remote Device | | 2019 | Monitor | | MD [address] | Interrogation | | | | | [address] [place], | (Primary Dx); | | | | | [place] [address] | Pacemaker; | | | | | [phone] | Sinoatrial node | | | | | | dysfunction (HCC) | | | | | | with symptomatic | | | | | | bradycardia | +--------+ + + + + | 08/21/ | Implant | Cardiology | Daljit Singletary, | Remote Device | | 2020 | Monitor | | MD [address] | Interrogation | | | | | [address] [place], | (Primary Dx); | | | | | [place] [address] | Pacemaker; | | | | | [phone] | Sinoatrial node | | | | | | dysfunction (HCC) | | | | | | with symptomatic | | | | | | bradycardia | +--------+ + + + + | 08/21/ | Implant | Cardiology | AnshuDaljit carmona, | Remote Device | | 2020 | Monitor | | MD [address] | Interrogation | | | | | [address] [place], | (Primary Dx); | | | | | [place] [address] | Pacemaker; | | | | | [phone] | Sinoatrial node | | | | [...] | | | | | | [place] [address] | | | | | | [phone] | | | | | | | | +--------+ + + + + documented as of this encounter Visit Diagnoses Not on filedocumented in this encounter"
--- OUTSIDE RECORDS SUMMARY | ~2020-08-06 | XMS | Encounter Summary ---
Demographics + + + | Address | [address] | | | [place] [address] | + + + | Home Phone [...] Team Providers + +------+ + | Care Felter Tennis Balls Name | Role | Phone | + +------+ + | Kirk French MD | PCP | | + +------+ + Encounter Details +--------+ + + + + | Date | Type | Department | Care Team | Description | +--------+ + + + + | 12/24/ | Anesthesia | [facility] | Jarett Barakat | | | 2018 | Event | MED CTR MP INTRA OP | PMD [address] | | | | | [address] | [address] [place], [place] | | | | | [place], [place] | [address] | | | | | [address] | [phone] | | | | | [phone] | | | | | | | Arthur Wesley MD | | | | | | [address] | | | | | | [place], [place] | | | | | | [address] | | | | | | | [...] 12/24/17 1435 by | | eral | [id number] catheter system; | Desmond Teresa RN | [...] EVALUATION Moe Sanchez 57 y.o. male 1960 [id number] Procedure(s) EGD (N/A Mouth) COLONOSCOPY (N/A Rectum) [...] signed by Jarett Barakat MD 12/24/2017 14:08 [facility] nesthesia Preprocedure Evaluation - Jarett Barakat MD - 2017 12:26 PM PST ANESTHESIA PREANESTHESIA EVALUATION Moe Leblancen 57 y.o. male 1960 [id number] Procedure(s): EGD (N/A Mouth) COLONOSCOPY (N/A Rectum) [...] Preventative health care Coronary artery disease involving [place] coronary artery of lovelock heart without angina pectoris Cannabis abuse, daily [...] | Monitor | | MD [address] | Interrogation | | | | | [place], | (Primary Dx); | | | | | [place] [address] | Pacemaker; | | | | | [phone] | Sinoatrial node | | | | | | dysfunction (HCC) | | | | | | with symptomatic | | | | | | bradycardia | +--------+ + + + + | 08/21/ | Implant | Cardiology | Daljit Singletary, | Remote Device | | 2020 | Monitor | | MD [address] | Interrogation | | | | | [place], | (Primary Dx); | | | | | [place] [address] | Pacemaker; | | | | | [phone] | Sinoatrial node | | | | | | dysfunction (HCC) | | | | | | with symptomatic | | | | | | bradycardia | +--------+ + + + + | 08/21/ | Implant | Cardiology | Daljit Singletary, | Remote Device | | 2019 | Monitor | | MD [address] | Interrogation | | | | | [place], | (Primary Dx); | | | | | [place] [address] | Pacemaker; | | | | | [phone] | Sinoatrial node | | | | | | dysfunction (HCC) | | | | | | with symptomatic | | | | | | bradycardia | +--------+ + + + + | 08/21/ | Implant | Cardiology | Daljit Singletary, | Remote Device | | 2019 | Monitor | | MD [address] | Interrogation | | | | | [place], | (Primary Dx); | | | | | [place] [address] | Pacemaker; | | | | | [phone] | Sinoatrial node | | | | | | dysfunction (HCC) | | | | | | with symptomatic | | | | | | bradycardia | +--------+ + + + + | 08/21/ | Implant | Cardiology | Daljit Singletary, | Remote Device | | 2019 | Monitor | | MD [address] | Interrogation | | | | | [place], | (Primary Dx); | | | | | [place] [address] | Pacemaker; | | | | | [phone] | Sinoatrial node | | | | [...] W | | | | | | [place], | | | | | | [place] [address] | | | | | | [phone] | | | | | | | [...]
--- OUTSIDE RECORDS SUMMARY | ~2020-08-06 | XMS | Encounter Summary ---
Demographics + + + | Address | [address] | | | [place] [address] | + + + | Home Phone [...] Team Providers + +------+ + | Care Deaf/Hard Of Hearing Specialist Name | Role | Phone | [...] | | | | exertion | | [address] [place] | | | | | Chest pain | | [place], [place] | | | | | on exertion | | [address] | | | | | | | Phone: | | | | | | | [phone] | | | | | | | Fax: | | | | | | | [phone] | +--------+--------+ + + + + Encounter Details +--------+ + + + + | Date | Type | Department | Care Team | Description | +--------+ + + + + | 03/18/ | Emergency | [facility] | Martell Hart | Chest pain on | | 2014 - | | [facility] | Sanjay Palacios MD | exertion (Primary | | | | [address] [place] | [address] | Dx); Dyspnea on | | 03/20/ | | [place] [address] | [place] | exertion; Essential | | 2014 | | [phone] | [address] | hypertension; Acute | | | | | | chest pain; | | | | | Parth Kraft, | Dizziness, | | | | | [address] | nonspecific; Mixed | | | | | [place] | anxiety depressive | | | | | [address] | disorder; PUD | | | | | [phone] | (peptic ulcer | | | | [...] might be different f rom the original. [facility] DISCHARGE SUMMARY Pt. Name/Age/: Moe Sanchez [...] mg by mouth as needed. aka: BENADRYL [place] 550 MG Caps Take by mouth. [...] Daily. to reduce urinary frequency - Lot #[id number], exp 07/2016 aka: RAPAFLO UNCODED MEDICATION - [...] hospital follow up Contact information: Eva Librado [facility] [address] [facility] [address] Call PARISA Russell. Specialty: Nurse Practitioner Why: As needed Contact information: [address] [place] [address] Condition: Patient being discharged with condition improved. Diet: Heart healthy, avoid acidic drinks and foods, spicy foods, too much coffee. Greater than 30 minutes were spent on discharge and coordination of post-hospital care. Electronically signed by: Thierry Fregoso DO, 03/20/2015 11:22 [facility] Portions of this chart may have been created with [employer] voice recognition software. Occasi onal wrong-word or [...] afford the prescribed medication, you can try wclx-emu-nylyukh acid blockers, such as Pepcid AC, Tagamet, [...] or as directed by your healthcare provider 7310-5974 [employer]. [address] [place] [address], [place] [address]. All righ ts reserved. This information is [...] + + + +---------+ + + | Onarga-3 Fatty | CAPS, one capsule by | [...] | | | | | | | #[id number], exp 07/2016 | | | | | [...] DO - 03/19/2015 10:09 PM PDT . [facility] PROGRESS NOTE Patient: Moe Sanchez : 1960: Age: 55 y.o. MedRec: [id number] PCP: Kirk French Admission date: 03/18/2015 Hospital [...] Butts ch, MD 0.4 mg at 03/19/15 1933 ondansetron (ZOFRAN) injection 4 mg 4 mg [...] 1708 03/18/15 1528 TROPONINI <0.01 <0.01 0.01 [facility] ECHOCARDIOGRAM REPORT STUDY DATE: 03/19/2015 [...] changes. No results for input(s): PHART, PO2ART, DTJ8EYC, WED0UIB, BEART, S7IFAIEW in the last 168 h ours. No results for input(s): SPECSOURCE, PHPOCB, HCO3, TCO2, BEART, BE, TGSF2HYQ in the last 16 8 hours. Invalid input(s): ZGHIP6KQ, TTJI7YH Point of care glucose: No results for [...] reviewed this case with Dr. Brasher. Carey fontenot continued to have intermittent chest pain overnight [...] minutes today. Thierry Fregoso DO 03/19/2015 22:09 [facility] Portions of this chart may have been created with [employer] voice recognition software. Occasi onal wrong-word or sound-alike substitutions may have occurred due to the inherent granger itations of voice recognition software. Please read the chart carefully and recognize, using context, where these substitutions have occurred Belén Cho RN - 03/19/2015 11:03 AM [id number] Report given to Marlen morejon who is assuming care. Electronically signed by: Jaja Hay RN 03/19/2015 11:04 Dieter Diamond RN - 03/19/2015 10:44 AM PDTAssumed care of patient, received report from MONROE Wilkinson. documented in t his encounter H&P Notes Parth Kraft MD - 03/18/2015 8:45 PM PDTFormatting of this note might be different f rom the original. [facility] HISTORY AND PHYSICAL Pt. Name/Age/: Moe [...] mouth Daily. Qty: 30 tablet, Refills: 6 [facility] Natural Products (OSTEO BI-FLEX/5-LOXIN [...] call 911 Qty: 25 tablet, Refills: 11 Onarga-3 Fatty Acids (SALMON OIL-1000 PO) CAPS, one capsule by mouth daily twice daily ONE TOUCH DELICA LANCETS [facility] Check glucose as needed for hypoglycemia Qty: [...] mouth Daily. to reduce urinary frequency Lot #[id number], exp 07/2016 Qty: 21 capsule, Refills: 0 UNCODED MEDICATION Diagnosis: Obstructive Sleep Apnea ICD-9: 327.23 Length of Need: 99 Months Qty: 1 Device, Refills: 0 Comments: A7033 -Nasal Pillows, K9548-Fuqbw Mask, A7030- Full Face Mask, G9755-Lamkcx Humi difier, X7565-Gdrehq Tubing, Y3638-Mkfnlqzj, Y5939-Cpfxctgoz A7039/J4653-Fxyxpsh valACYclovir (VALTREX) 500 mg tablet take 1 [...] signed by: Parth Kraft MD 03/19/2015 4:24 [facility] Portions of this chart may have been created with [employer] voice recognition software. Occasi onal wrong-word or [...] No acute ischemic changes. [facility] Martell Hart MD - 03/18/2015 3:17 PM PDTFormatting of this note might be d ifferent from the original. [facility] Moe Sanchez Emergency Department Encounter Note [address] [place] [address] PCP:Kirk French x2500 eMERGENCY dEPARTMENT eNCOUnter CHIEF [...] TABLET Take 1 tablet by mouth Daily. [facility] NATURAL PRODUCTS (OSTEO BI-FLEX/5-LOXIN ADVANCED PO) Take [...] [place] Check glucose as needed for hypoglycemia PANTOPRAZOLE (PROTONIX) 40 MG TABLET Take 1 tablet by mouth Daily. PRAVASTATIN (PRAVACHOL) 40 MG TABLET take 1 tablet by mouth once daily PROMETHAZINE (PHENERGAN) 25 MG TABLET Take 25 mg by mouth every 8 hours as needed. SILODOSIN (RAPAFLO) 8 MG CAPS Take 1 capsule by mouth Daily. to reduce urinary frequenc y Lot #[id number], exp 07/2016 UNCODED MEDICATION Diagnosis: Obstructive Sleep [...] deficits noted, no facial assymetry noted. 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 EKG Interpretation Interpreted by emergency department physician Rhythm: electric pacemaker. Rate: 73 [place]: normal Ectopy: none Conduction: P wave normal, [...] chart may have been created with [employer] voice recognition software. Occasi onal wrong-word or [...] Summary & Review . Discharge planning; R/O [place], 24 OBS. Amilcar lives in [place], [place] with his and two b eloved Rottweilers. He is hoping to be discharged home today. He has his own vehicle in [facility]. He sees Whit Segovia at the Pain [...] Review . Pt arrived to [facility] at 2114 with no c/o pain. His BP at 2119 was 137/100, HR 77, RR 20, 9 7% on RA. BP at 0000, 102/74. NPO after MN for stress test today. No c/o chest pain all nigh t. ssessment & Plan Hugo - Parth Kraft MD - 03/19/2015 4:24 [...] 2019 | Monitor | | [address] | Interrogation | | | | | [place], | (Primary Dx); | | | | | [place] [address] | Pacemaker; | | | | | [phone] | Sinoatrial node | | | | | | dysfunction (HCC) | | | | | | with symptomatic | | | | | | bradycardia | +--------+ + + + + | 08/21/ | Implant | Cardiology | Daljit Singletary, | Remote Device | | 2020 | Monitor | | MD [address] | Interrogation | | | | | [place], | (Primary Dx); | | | | | [place] [address] | Pacemaker; | | | | | [phone] | Sinoatrial node | | | | | | dysfunction (HCC) | | | | | | with symptomatic | | | | | | bradycardia | +--------+ + + + + | 08/21/ | Implant | Cardiology | Daljit Singletary, | Remote Device | | 2019 | Monitor | | MD [address] | Interrogation | | | | | [place], | (Primary Dx); | | | | | [place] [address] | Pacemaker; | | | | | [phone] | Sinoatrial node | | | | | | dysfunction (HCC) | | | | | | with symptomatic | | | | | | bradycardia | +--------+ + + + + | 08/21/ | Implant | Cardiology | Daljit Singletary, | Remote Device | | 2019 | Monitor | | MD [address] | Interrogation | | | | | [place], | (Primary Dx); | | | | | [place] [address] | Pacemaker; | | | | | [phone] | Sinoatrial node | | | | | | dysfunction (HCC) | | | | | | with symptomatic | | | | | | bradycardia | +--------+ + + + + | 08/21/ | Implant | Cardiology | Daljit Singletary, | Remote Device | | 2019 | Monitor | | MD [address] | Interrogation | | | | | [place], | (Primary Dx); | | | | | [place] [address] | Pacemaker; | | | | | [phone] | Sinoatrial node | | | | [...] [address] | | | | | | [address] [place], | | | | | | [place] [address] | | | | | | [phone] | | | | | | | [...] Performed At | + + + | [facility] ECHOCARDIOGRAM REPORT | | | [...] | | Signed by: Daljit Singletary MD [facility] 03/19/2015 15:44 | | | Mechanical Systems Control Engineer: Dewey Valdez RDMS | | + + [...] | | | | | | [employer] | | | | | [...] + | [facility] | [address] | [place] | [phone] | | [facility] | | [address] | | | - LABORATORY | | [...] | non- | FILTRATION | mL/min/1.73m2 | [facility] | | | [place] | RATE,ESTIMATED | | MEDICAL | | | | mL/min/1.08t8Epwy than | | CENTER - | | [...] | | | | | mg/dL | [facility] | | | | | | MEDICAL | | | | | | CENTER - | | | | | | LABORATORY | | + + + + + + | BUN/Creatin | 16.7 | | [facility] | | | ine Ratio | | | [facility] | | | | | | [...] [address] | [place] | [phone] | | [facility] | | [address] | | | - LABORATORY | | [...] | | Cells | | M/uL | . MICHELLE | [...] [address] | [place] | [phone] | | [facility] | | [address] | | | - LABORATORY | | [...] | | | | | | [employer] | | | | | [...] ST. | [address] | [place], [place] | [phone] | | [facility] | | [address] | | | - LABORATORY | | [...] + | [facility] | [address] | [place] | [phone] | | [facility] | | [address] | | | - LABORATORY | | | | + + + + + B Type Natriuretic Peptide (03/18/2015 3:34 PM PDT) + +-------+ + + + | Component | Value | Ref Range | Performed | Pathologist | | | | | At | Signature | + +-------+ + + + | BNP | 11 | <100 pg/mL | [facility] | | [...] [address] | [place] | [phone] | | [facility] | | [address] | | | - LABORATORY | | [...] [address] | [place] | [phone] | | [facility] | | [address] | | | - LABORATORY | | [...] [address] | [place] | [phone] | | [facility] | | [address] | | | - [...] | | | | | | [employer] | | | | | [...] | Performing | Address | City/State[facility] | Phone Number | | Organization | | | | + + + + + | [facility] | [address] | [place] | [phone] | | [facility] | | [address] | | | - LABORATORY | | [...] + | [facility] | [address] | [place] | [phone] | | [facility] | | [address] | | | - LABORATORY | | [...] mL/min/1.73m2 | [facility] | | | [place] | RATE,ESTIMATED | | MEDICAL | | | | mL/min/1.11w5Edoh than | | CENTER - | | [...] [address] | [place] | [phone] | | [facility] | | [address] | | | - LABORATORY | | [...] | | | Cells | | | [facility] | | | | | | MEDICAL | | | | | | CENTER - | | | | | | LABORATORY | | + +-------+ + + + | Red Blood | 5.05 | 4.30 - 5.70 | [facility] | | | Cells | | M/uL | [facility] | | | | | | [...] + | [facility] | [address] | [place] | [phone] | | [facility] | | [address] | | | - LABORATORY | | [...] First dose on 03/18/15 at | | AM PDT | | [...]
--- OUTSIDE RECORDS SUMMARY | ~2020-08-06 | XMS | Encounter Summary ---
Demographics + + + | Address | [address] | | | [place] [address] | + + + | Home Phone [...] + | 10/23/ | Office | [facility] | Silvia, | CAD (coronary artery | | 2013 | Visit | CARDIOLOGY [address] | PARISA [address] | disease) (Primary | | | | [address], | [place], | Dx); Other chest | | | | [place] [address] | [place] [address] | pain; Chest pain; | | | | [phone] | [phone] | Coronary artery | | | | [...] Sanchez Date: October 23, 2014 : 1960 Dispatch Associate: Kailey Pruitt RN Device Potash Flaker: Medtronic Sense (mV) Impedance (?) Capture (V) Capture (ms) A Lead 2.80-4.00 407 1.500 0.09 RV Lead 22.40-31.36 519 2.000 0.09 LV Lead Battery Impedance (?): 658 Battery Voltage (V): 2.79 IN Interval (ms): 155 AR Interval (ms): 240 VA Conduction: Mode Switch Events: 1 % of time: <0.1 -SET BUILDER: <0.1% AP-SET BUILDER: <0.1% -VS: 13.8% AP-VS: 86.1% SET BUILDER: Magnetic Rate: 85 LINDA: 65 LEAH: Current [...] needed for Chest pain. 25 tablet 12 [place]-3 Fatty Acids (SALMON OIL-1000 PO) CAPS, one [...] attenuation cannot completely be ruled out. [facility] 12/25/13, shows non critical coronary [...] to go back in 3 days to [place] for an attempt of ablation under general [...] this chart may have been created with [employer] voice recognition software. Occasi onal wrong-word [...] from the orig inal. DEVICE INTERROGATION Name: Moechica Sanchez Date: October 23, 2014 : 1960 Dispatch Associate: Kailey Pruitt RN Device [place] Flaker: Medtronic Sense (mV) Impedance (?) Capture (V) Capture (ms) A Lead 2.80-4.00 407 1.500 0.09 RV Lead 22.40-31.36 519 2.000 0.09 LV Lead Battery Impedance (?): 658 Battery Voltage (V): 2.79 IN Interval (ms): 155 AR Interval (ms): 240 VA Conduction: Mode Switch Events: 1 % of time: <0.1 -SET BUILDER: <0.1% AP-SET BUILDER: <0.1% -VS: 13.8% AP-VS: 86.1% SET BUILDER: Magnetic Rate: 85 LINDA: 65 LEAH: Current [...] signed by: Kailey Pruitt RN 10/23/2014 15:22 [facility] - 12/2013 12:00 AM PSTAssociated Order(s): ECG - EXTERNAL SCAN documented in this encounter Plan of Treatment +--------+ + + + + | Date | Type | Specialty | Care Team | Description | +--------+ + + + + | 08/21/ | Implant | Cardiology | Daljit Singletary, | Remote Device | | 2019 | Monitor | | MD [address] | Interrogation | | | | | [place], | (Primary Dx); | | | | | [place] [address] | Pacemaker; | | | | | [phone] | Sinoatrial node | | | | | | dysfunction (HCC) | | | | | | with symptomatic | | | | | | bradycardia | +--------+ + + + + | 08/21/ | Implant | Cardiology | Daljit Singletary, | Remote Device | | 2020 | Monitor | | MD [address] | Interrogation | | | | | [place], | (Primary Dx); | | | | | [place] [address] | Pacemaker; | | | | | [phone] | Sinoatrial node | | | | | | dysfunction (HCC) | | | | | | with symptomatic | | | | | | bradycardia | +--------+ + + + + | 08/21/ | Implant | Cardiology | Daljit Singletary, | Remote Device | | 2019 | Monitor | | MD [address] | Interrogation | | | | | [place], | (Primary Dx); | | | | | [place] [address] | Pacemaker; | | | | | [phone] | Sinoatrial node | | | | | | dysfunction (HCC) | | | | | | with symptomatic | | | | | | bradycardia | +--------+ + + + + | 08/21/ | Implant | Cardiology | Daljit Singletary, | Remote Device | | 2019 | Monitor | | MD [address] | Interrogation | | | | | [place], | (Primary Dx); | | | | | [place] [address] | Pacemaker; | | | | | [phone] | Sinoatrial node | | | | | | dysfunction (HCC) | | | | | | with symptomatic | | | | | | bradycardia | +--------+ + + + + | 08/21/ | Implant | Cardiology | Daljit Singletary, | Remote Device | | 2019 | Monitor | | MD [address] | Interrogation | | | | | [place], | (Primary Dx); | | | | | [place] [address] | Pacemaker; | | | | | [phone] | Sinoatrial node | | | | [...] | | | | | | [place] [address] | | | | | | [phone] | | | | | | | [...] 15:23 DEVICE INTERROGATION | | | Name: Meo Sanchez Date: October 23, 2014 : | | | 1960 Dispatch Associate: Kailey Pruitt RN Device [place] Flaker: | | | Medtronic Sense (mV) Impedance [...] Switch Events: 1 % of time: <0.1 -SET BUILDER: <0.1% AP-SET BUILDER: <0.1% -VS: | | | 13.8% AP-VS: 86.1% SET BUILDER: Magnetic Rate: 85 LINDA: 65 LEAH: Current [...] | | Date: October 23, 2014DOB: 1960 Dispatch Associate: Jun Saul Pot[place] Flaker: | | Medtronic Sense (mV) Impedance (?) Capture (V) Capture (ms) A Lead 2.80-4.00 407 1.500 | | 0.09 RV Lead 22.40-31.36 519 2.000 0.09 LV Lead Battery Impedance (?): 658 Battery | | Voltage (V): 2.79 IN Interval (ms): 155 AR Interval (ms): 240 VA Conduction: Mode | | Switch Events: 1 % of time: <0.1 -SET BUILDER: <0.1% AP-SET BUILDER: <0.1% -VS: 13.8% AP-VS: 86.1% SET BUILDER: | | Magnetic Rate: 85 LINDA: 65 [...] of unspecified type | | of vessel, chipewwa or graft | + + | Other chest pain | + + | Chest pain Chest pain, unspecified | + + | Coronary artery disease Coronary atherosclerosis of unspecified type of vessel, | | chipewwa or graft | + + | Pacemaker - Medtronic - [id number] Adapta - Implanted 06/14/2009 Cardiac pacemaker in situ | + + | Tachycardia Tachycardia, unspecified | + + | Hypertension Unspecified essential hypertension | + + | SINUS BRADYCARDIA Sinoatrial node dysfunction | + + | Syncope Syncope and collapse | + + | Remote Device Interrogation [...]
--- OUTSIDE RECORDS SUMMARY | ~2020-08-06 | XMS | Encounter Summary ---
Demographics + + + | Address | [address] | | | [place] [address] | + + + | Home Phone [...] Providers + +------+ + | Care Spring Clipper Name | Role | Phone | + [...] Eva ROUSE | | | | | [place], [place] | [address] | | | | | [address] | [place] [address] | | | | | [phone] | [phone] | | | | | | | [...] | Monitor | | MD [address] | Interrogation | | | | | [place], | (Primary Dx); | | | | | [place] [address] | Pacemaker; | | | | | [phone] | Sinoatrial node | | | | | | dysfunction (HCC) | | | | | | with symptomatic | | | | | | bradycardia | +--------+ + + + + | 08/21/ | Implant | Cardiology | Daljit Singletary, | Remote Device | | 2020 | Monitor | | MD [address] | Interrogation | | | | | [place], | (Primary Dx); | | | | | [place] [address] | Pacemaker; | | | | | [phone] | Sinoatrial node | | | | | | dysfunction (HCC) | | | | | | with symptomatic | | | | | | bradycardia | +--------+ + + + + | 08/21/ | Implant | Cardiology | Daljit Singletary, | Remote Device | | 2019 | Monitor | | MD [address] | Interrogation | | | | | [place], | (Primary Dx); | | | | | [place] [address] | Pacemaker; | | | | | [phone] | Sinoatrial node | | | | | | dysfunction (HCC) | | | | | | with symptomatic | | | | | | bradycardia | +--------+ + + + + | 08/21/ | Implant | Cardiology | Daljit Singletary, | Remote Device | | 2019 | Monitor | | MD [address] | Interrogation | | | | | [place], | (Primary Dx); | | | | | [place] [address] | Pacemaker; | | | | | [phone] | Sinoatrial node | | | | | | dysfunction (HCC) | | | | | | with symptomatic | | | | | | bradycardia | +--------+ + + + + | 08/21/ | Implant | Cardiology | Daljit Singleatry, | Remote Device | | 2019 | Monitor | | MD [address] | Interrogation | | | | | [place], | (Primary Dx); | | | | | [place] [address] | Pacemaker; | | | | | [phone] | Sinoatrial node | | | | [...] [address] | | | | | | [place], | | | | | | [place] [address] | | | | | | [phone] | | | | | | | [...]
--- OUTSIDE RECORDS SUMMARY | ~2020-08-06 | XMS | Encounter Summary ---
Demographics + + + | Address | [address] | | | [place] [address] | + + + | Home Phone [...] Providers + +------+ + | Care Cardiology Clinical Nurse Specialist Name | Role | [...] | 12/29/ | Procedure | [facility] [place] | Daljit Singletary, | Pacemaker | | 2017 | visit | CARDIOLOGY [address] | [address] [place] | reprogramming/check | | | | [place], | [place], | DO NOT DELETE | | | | [place] [address] | [place] [address] | (Primary Dx); | | | | [phone] | [phone] | Sinoatrial node | | | | [...] Dx); | | | | | [place] [address] | Pacemaker; | | | | | [phone] | Sinoatrial node | | | | | | dysfunction (HCC) | | | | | | with symptomatic | | | | | | bradycardia | +--------+ + + + + | 08/21/ | Implant | Cardiology | Daljit Singletary, | Remote Device | | 2019 | Monitor | | MD [address] | Interrogation | | | | | [place], | (Primary Dx); | | | | | [place] [address] | Pacemaker; | | | | | [phone] | Sinoatrial node | | | | | | dysfunction (HCC) | | | | | | with symptomatic | | | | | | bradycardia | +--------+ + + + + | 08/21/ | Implant | Cardiology | Daljit Singletary, | Remote Device | | 2019 | Monitor | | MD [address] [place] | Interrogation | | | | | [place], | (Primary Dx); | | | | | [place] [address] | Pacemaker; | | | | | [phone] | Sinoatrial node | | | | | | dysfunction (HCC) | | | | | | with symptomatic | | | | | | bradycardia | +--------+ + + + + | 08/21/ | Implant | Cardiology | Daljit Singletary, | Remote Device | | 2019 | Monitor | | MD [address] [place] | Interrogation | | | | | [place], | (Primary Dx); | | | | | [place] [address] | Pacemaker; | | | | | [phone] | Sinoatrial node | | | | [...] Dx); | | | | | [place] [address] | Pacemaker; | | | | | [phone] | Sinoatrial node | | | | [...] W | | | | | | [place], | | | | | | [place] [address] | | | | | | [phone] | | | | | | | [...]
--- OUTSIDE RECORDS SUMMARY | ~2020-08-06 | XMS | Encounter Summary ---
Demographics + + + | Address | [address] | | | [place] [address] | + + + | Home Phone [...] Providers + +------+ + | Care Manager Finance Name | Role | Phone [...] [place] | | | | | | [address] | [address] Phone: | | | | | | Phone: | [phone] | | | | | | [phone] | Fax: | | | | | | Fax: | [phone] | | | | | | [phone] | | +--------+ + + + + [...] | diurnal enuresis | | | | [place], [place] | [place], [place] | (Primary Dx); BPH | | | | [address] | [address] | with | | | | [phone] | | obstruction/lower | | | | [...] might be different fro kiara the original. Moe is a 54 y.o. [...] H e states that the surgeon in [place] who [...] (HCC); HTN (hypertension); Hypercholesterolemia; Bipolar 1 disorder ([facility]); In somnia; Chronic neck pain; Depression; Hyperlipidemia; [...] (06/26/2013); Bladder troubles; Tuberculosis; Anginal pain ([facility]); St roke (HCC); Prostate troubles; and Neurological [...] Date/Time: 04/22/2012 16:56 Transcribed Date/Time: 04/22/2012 17:32 Systems Technician: <Electronically Signed by Jama Solis MD> [...] Date/Time: 04/23/2012 10:54 Transcribed Date/Time: 04/23/2012 11:06 Systems Technician: <Electronically Signed by Jama Solis MD> 04/24/12 6214 IMPRESSION: 1. Nocturnal and diurnal enuresis. I [...] bladder, still believe that the recommendations from [facility] neurosurgeon, Dr. Demarco, on 03/13/2014 would still apply, namely a CT myelogram of the cervic al/thoracic/lumbar spine region. If Meo desires, this can be ordered by his [...] have not thoroughly proofread this note, and certified medical transcriptionist erro rs may occur. CC: Kirk French MD documented in this en counter Procedure Notes ONBASE SCAN [facility] - 12/04/2014 12:00 AM PSTAssociated Order(s): IMAGING REPORT - EXTERNAL SC AN documented in this encount er Miscellaneous Notes Addendum Note - Kira Espinoza RN - 12/05/2014 9:52 AM PST Addended by: BECCA ESPINOZA on: 12/05/2014 09:52 Modules accepted: Orders iscellaneous - ONBASE SCAN [facility] - 12/04/2014 12:00 AM PSTElectronically signed by [facility], [facility] at 12:23 PM PSTMiscellaneous - ONBASE SCAN [facility] - 12/04/2014 12:00 AM PSTElectronically kamaljit d by teresa [facility] at 12/29/2014 12:23 PM PSTdocumented in [...] | | | | | [facility] [place], | (Primary Dx); | | | | | [place] [address] | Pacemaker; | | | | | [phone] | Sinoatrial node | | | | | | dysfunction ([facility]) | | | | | | with symptomatic | | | | | | bradycardia | +--------+ + + + + | 08/21/ | Implant | Cardiology | Daljit Singletary, | Remote Device | | 2019 | Monitor | | MD [address] | Interrogation | | | | | [facility], | (Primary Dx); | | | | | [place] [address] | Pacemaker; | | | | | [phone] | Sinoatrial node | | | | | | dysfunction (HCC) | | | | | | with symptomatic | | | | | | bradycardia | +--------+ + + + + | 08/21/ | Implant | Cardiology | Daljit Singletary, | Remote Device | | 2019 | Monitor | | MD [address] | Interrogation | | | | | [place], | (Primary Dx); | | | | | [place] [address] | Pacemaker; | | | | | [phone] | Sinoatrial node | | | | | | dysfunction (HCC) | | | | | | with symptomatic | | | | | | bradycardia | +--------+ + + + + | 08/21/ | Implant | Cardiology | Daljit Singletary, | Remote Device | | 2019 | Monitor | | MD [address] | Interrogation | | | | | [place], | (Primary Dx); | | | | | [place] [address] | Pacemaker; | | | | | [phone] | Sinoatrial node | | | | | | dysfunction (HCC) | | | | | | with symptomatic | | | | | | bradycardia | +--------+ + + + + | 08/21/ | Implant | Cardiology | Daljit Singletary, | Remote Device | | 2019 | Monitor | | [address] | Interrogation | | | | | [place], | (Primary Dx); | | | | | [place] [address] | Pacemaker; | | | | | [phone] | Sinoatrial node | | | | [...] | | | | | | [place], | | | | | | [place] [address] | | | | | | [phone] | | | | | | | [...] 1.001 - 1.030 | | | | [place], | | | | | | UA, [...] | + + | Christoph Meloalberto - 12/04/2014 12:00 AM PST | + [...] disorder of urinary system | + + | Remote Device Interrogation [...]
--- OUTSIDE RECORDS SUMMARY | ~2020-08-06 | XMS | Encounter Summary ---
Demographics + + + | Address | [address] | | | [place] [address] | + + + | Home Phone [...] Providers + +------+ + | Care Manager Performance Name | Role | Phone | + +------+ + | Kirk French MD | PCP | | + +------+ + Reason for Visit +--------+--------+ + | Reason | Onset | Comments | | | Date | | +--------+--------+ + | Other | 06/24/ | prescription request | | | 2020 | | +--------+--------+ + Encounter Details +--------+--------+ + + + | Date | Type | Department | Care Team | Description | +--------+--------+ + + + | 06/24/ | Refill | [facility] | Kirk French | Other (prescription | | 2020 | | [place] | MD [address] | request) | | | | [facility] [address] | | | | | [address] | [place] [address] | | | | | [place], [place] | [phone] | | | | | [address] | | | | | | [phone] | | | +--------+--------+ + + + [...] Telephone Encounter - Kirk French MD - 06/25/2020 1:02 PM PDTOk to prescibe as r equested elephone Encounter - Hailey Girard, Steel [employer]er - 06/25/2020 12:53 PM PDTSpoke to patient and states he has received Trazodone 150 mg in the past but he cuts pill in three p arts which he only takes 50 mg. elephone Encounter - Kirk French MD - 020 8:27 AM PDTIs he on this already? This is 3 times usual dose elephone Encounter - Tegan Chaney - 2019 3:36 PM PDTFred, is calling regarding Other (prescription request) and would like a call back. Additional Call Details: States he is in pain and not able to sleep and is requesting a pr escription for Trazodone 150 mg to be able to sleep. Please call him back at [phone]. If this is a symptom based call, was patient offered triage? Not Applicable If this is a symptom based call and you were unable to immediately transfer the call to a p rovigood director counseling bureau was caller made aware that if at [...] | Monitor | | MD [address] | Interrogation | | | | | [place], | (Primary Dx); | | | | | [place] [address] | Pacemaker; | | | | | [phone] | Sinoatrial node | | | | | | dysfunction (HCC) | | | | | | with symptomatic | | | | | | bradycardia | +--------+ + + + + | 08/21/ | Implant | Cardiology | Daljit Singletary, | Remote Device | | 2019 | Monitor | | MD [address] | Interrogation | | | | | [place], | (Primary Dx); | | | | | [place] [address] | Pacemaker; | | | | | [phone] | Sinoatrial node | | | | | | dysfunction (HCC) | | | | | | with symptomatic | | | | | | bradycardia | +--------+ + + + + | 08/21/ | Implant | Cardiology | Daljit Singletary, | Remote Device | | 2019 | Monitor | | MD [address] | Interrogation | | | | | [place], | (Primary Dx); | | | | | [place] [address] | Pacemaker; | | | | | [phone] | Sinoatrial node | | | | | | dysfunction (HCC) | | | | | | with symptomatic | | | | | | bradycardia | +--------+ + + + + | 08/21/ | Implant | Cardiology | AnshuDaljit carmona, | Remote Device | | 2019 | Monitor | | MD [address] | Interrogation | | | | | [place], | (Primary Dx); | | | | | [place] [address] | Pacemaker; | | | | | [phone] | Sinoatrial node | | | | | | dysfunction (HCC) | | | | | | with symptomatic | | | | | | bradycardia | +--------+ + + + + | 08/21/ | Implant | Cardiology | Daljit Singletary, | Remote Device | | 2019 | Monitor | | MD [address] | Interrogation | | | | | [place], | (Primary Dx); | | | | | [place] [address] | Pacemaker; | | | | | [phone] | Sinoatrial node | | | | [...] | | | | | | [place] [address] | | | | | | [phone] | | | | | | | | +--------+ + + + + documented as of this encounter Visit Diagnoses Not on filedocumented in this encounter"
--- OUTSIDE RECORDS SUMMARY | ~2020-08-06 | XMS | Encounter Summary ---
Demographics + + + | Address | [address] | | | [place] [address] | + + + | Home Phone [...] Team Providers + +------+ + | Care Bankruptcy Processor Name | Role | Phone | [...] Provider Unknown | | | | | [place], [place] | [phone] | | | | | [address] | | | | | | [phone] | | | +--------+ + + + [...] + + +---------+ + + | [place]-3 Fatty | CAPS, one capsule by | [...] | | | | | | | #[id number], exp 07/2016 | | | | | [...] 2020 | Monitor | | [address] | Interrogation | | | | | [place], | (Primary Dx); | | | | | [place] [address] | Pacemaker; | | | | | [phone] | Sinoatrial node | | | | | | dysfunction (HCC) | | | | | | with symptomatic | | | | | | bradycardia | +--------+ + + + + | 08/21/ | Implant | Cardiology | Daljit Singletary, | Remote Device | | 2019 | Monitor | | MD [address] | Interrogation | | | | | [place], | (Primary Dx); | | | | | [place] [address] | Pacemaker; | | | | | [phone] | Sinoatrial node | | | | | | dysfunction (HCC) | | | | | | with symptomatic | | | | | | bradycardia | +--------+ + + + + | 08/21/ | Implant | Cardiology | Daljit Singletary, | Remote Device | | 2019 | Monitor | | MD [address] | Interrogation | | | | | [place], | (Primary Dx); | | | | | [place] [address] | Pacemaker; | | | | | [phone] | Sinoatrial node | | | | | | dysfunction (HCC) | | | | | | with symptomatic | | | | | | bradycardia | +--------+ + + + + | 08/21/ | Implant | Cardiology | Daljit Singletary, | Remote Device | | 2019 | Monitor | | MD [address] | Interrogation | | | | | [place], | (Primary Dx); | | | | | [place] [address] | Pacemaker; | | | | | [phone] | Sinoatrial node | | | | | | dysfunction (HCC) | | | | | | with symptomatic | | | | | | bradycardia | +--------+ + + + + | 08/21/ | Implant | Cardiology | Daljit Singletary, | Remote Device | | 2019 | Monitor | | MD [address] | Interrogation | | | | | [place], | (Primary Dx); | | | | | [place] [address] | Pacemaker; | | | | | [phone] | Sinoatrial node | | | | [...] [address] | | | | | | [place], | | | | | | [place] [address] | | | | | | [phone] | | | | | | | [...]
--- OUTSIDE RECORDS SUMMARY | ~2020-08-06 | XMS | Encounter Summary ---
Demographics + + + | Address | [address] | | | [place] [address] | + + + | Home Phone [...] Team Providers + +------+ + | Care Sheeter Waxer Operator Name | Role | Phone | [...] | | | | | [address] | | | | | | [place], [place] | | | | | | [address] | | | | | | [phone] | | | +--------+ + + + [...] | Monitor | | [address] | Interrogation | | | | | [place], | (Primary Dx); | | | | | [place] [address] | Pacemaker; | | | | | [phone] | Sinoatrial node | | | | | | dysfunction (HCC) | | | | | | with symptomatic | | | | | | bradycardia | +--------+ + + + + | 08/21/ | Implant | Cardiology | Daljit Singletary, | Remote Device | | 2019 | Monitor | | MD [address] | Interrogation | | | | | [place], | (Primary Dx); | | | | | [place] [address] | Pacemaker; | | | | | [phone] | Sinoatrial node | | | | | | dysfunction (HCC) | | | | | | with symptomatic | | | | | | bradycardia | +--------+ + + + + | 08/21/ | Implant | Cardiology | Daljit Singletary, | Remote Device | | 2019 | Monitor | | MD [address] | Interrogation | | | | | [place], | (Primary Dx); | | | | | [place] [address] | Pacemaker; | | | | | [phone] | Sinoatrial node | | | | | | dysfunction (HCC) | | | | | | with symptomatic | | | | | | bradycardia | +--------+ + + + + | 08/21/ | Implant | Cardiology | Daljit Singletary, | Remote Device | | 2019 | Monitor | | MD [address] | Interrogation | | | | | [place], | (Primary Dx); | | | | | [place] [address] | Pacemaker; | | | | | [phone] | Sinoatrial node | | | | | | dysfunction ([facility]) | | | | | | with symptomatic | | | | | | bradycardia | +--------+ + + + + | 08/21/ | Implant | Cardiology | Daljit Singletary, | Remote Device | | 2020 | Monitor | | MD [address] | Interrogation | | | | | [place], | (Primary Dx); | | | | | [place] [address] | Pacemaker; | | | | | [phone] | Sinoatrial node | | | | [...] | | | | | | [place], | | | | | | [place] [address] | | | | | | [phone] | | | | | | | [...]
--- OUTSIDE RECORDS SUMMARY | ~2020-08-06 | XMS | Encounter Summary ---
Demographics + + + | Address | [address] | | | [place] [address] | + + + | Home Phone [...] Providers + +------+ + | Care Clerical Assistant Name | Role | Phone | [...] | | | Sinoatrial | Geri, SENIOR TRAINING SPECIALIST | [address] | | | | | node | [address] | [place], | | | | | dysfunction | [place] | [place] | | | | | (HCC) | [place], [place] | [address] | | | | | Coronary | [address] | Phone: | | | | | artery | Phone: | [phone] | | | | | disease | [phone] | Fax: | | | | | involving | Fax: | [phone] | | | | | venetie ira | [phone] | | | | | | coronary | | | | | | | artery of | | | | | | | [place] ir[place] heart | | | | | [...] | | | | | | Complete [place] | | | | | | | ECHO HEART | | | | | | | XTHORACIC,[place] | | | | | | | MPLETE W | | | | | | | DOPPLER [place] | | | | | | | [...] | Visit | CARDIOLOGY [address] | SENIOR TRAINING SPECIALIST [address] | dysfunction (HCC) | | | | [address] [place], | [place] | with symptomatic | | | | [place] [address] | [address] | bradycardia (Primary | | | | [phone] | | Dx); Coronary | | | | | | artery disease | | | | | | involving ven[place]ie ira | | | | | | coronary artery of | | | | | | [place] heart without | | | | [...] artery disease involving venetie ira coronary artery without angina pectoris Cannabis [...] by mouth every evening. 90 tablet 3 [facility] [...] 3rd dose, call 911 100 tablet 3 [place]-3 Fatty Acids (SALMON OIL-1000 PO) CAPS, one [...] scanned Paceart documentation and device PDF in Lolabox for interrogation (with progr amming changes) performed [...] ventricular arrhythmia performed by Dr. Gambino at [facility] on 01/30/2013. Patient had spontaneous PVCs [...] to go back in 3 days to [place] for an attempt of ablation under general [...] I-II of [place] Heart [employer] functional class. T here are [...] this chart may have been created with Telunjuk voice recognition software. Occasi onal wrong-word or [...] Device Interrogation 2. Coronary artery disease involving venetie ira coronary artery of venet[place] ir[place] heart without angina pectoris I25.10 414.01 [...] Dx); | | | | | [place] [address] | Pacemaker; | | | | | [phone] | Sinoatrial node | | | | [...] Dx); | | | | | [place] [address] | Pacemaker; | | | | | [phone] | Sinoatrial node | | | | [...] Dx); | | | | | [place] [address] | Pacemaker; | | | | | [phone] | Sinoatrial node | | | | [...] Dx); | | | | | [place] [address] | Pacemaker; | | | | | [phone] | Sinoatrial node | | | | [...] | Pacemaker; | | | | | [phone] | Sinoatrial node | | | | [...] [address] | | | | | | [address] [place], | | | | | | [place] [address] | | | | | | [phone] | | | | | | | [...] Patient Name VICTOR HUGO NGUYEN | | OTSEGO Room Number SARAH Patient | [facility] | | [id number] Date of Study 06/16/2016 Number | - IMAGING | | Visit Number [id number] | | | Referring Physician JOSE ARMANDO GARCIA Number Date of 1960 | | | Food Service Team Member LUIS FERNANDO RIGOBERTO DUARTE Age | | | 56 year(s) Interpreting | | | GEMINI TROY | | | Gravity Meter Observer SYDNI SINGLETARY, | | | Gender | | | Male Nurse Procedure Type of Study TTE | | | procedure: ECHO Complete. Procedure dateDate: 06/16/2016Start: 10:55 | | | AM Technical Quality: Adequate visualizationStudy Location: Echo | | | LabIndications: CAD NAKNEK CORONARY ARTERY 414.01/ I25.10 and | | [...] BARRY Room Number SARAH | | Patient [id number] Date of Study 06/16/2016 Number Visit Number | | [id number] Referring Physician JOSE ARMANDO GARCIA Number | | Date of 1960 Food Service Team Member LUIS FERNANDO DUARTE Age | | 56 year(s) Interpreting GEMINI TROY | | Gravity Meter Observer SYDNI SINGLETARY, | | Gender Male NurseProcedureType of Study TTE | | procedure: ECHO Complete.Procedure dateDate: 06/16/2016Start: 10:55 AMTechnical Quality: | | Adequate visualizationStudy Location: Echo LabIndications: CAD NAKNEK CORONARY ARTERY | | 414.01/ I25.10 and [...] [address] | CHRISTOPH Nguyen | [phone] | | [facility] | | [address] | | | - IMAGING | | | | + + + + + Device Interrogation (01/01/2016 4:41 PM PST) + + + | Narrative | Performed At | + + + | Geri XanderPARISA stone 01/01/2016 16:41 PATIENT NAME: | MODESTO | | Moe Sanchez : 1960: AGE: 55 | | | y.o. Device In-office Evaluation Report 12/31/2015 Reason | | | for evaluation: routine Indication for device: ICD-10-CM | | | ICD-9-CM 1. Sinoatrial node dysfunction (HCC) with symptomatic | | | bradycardia I49.5 427.81 ECHO Complete Device Interrogation | | | 2. Coronary artery disease involving venetie ira coronary artery of | | | venetie ira heart without angina pectoris I25.10 414.01 [...]
--- OUTSIDE RECORDS SUMMARY | ~2020-08-06 | XMS | Encounter Summary ---
Demographics + + + | Address | [address] [place] [address] [address] | | | [place] [address] | + + + | Home Phone [...] [place] | | | | | [address] | | + + + + + Care Team Providers + +------+ + | Care Histology Manager Name | Role | Phone | + +------+ + | Darion Holden DO | PCP | | + +------+ + Encounter Details +--------+ + + + + | Date | Type | Department | Care Team | Description | +--------+ + + + + | 01/22/ | Transcribe | [facility] | Transcribe | | | 2020 | Orders | [facility] [address] | Encounter, Provider, | | | | | Tremayne Crane Winner for | [address] | | | | | [facility], | [place] [address] | | | | | [address] | | | | | | [place], [place] | | | | | | [address] | | | | | | [phone] | | | +--------+ + + + [...]
--- OUTSIDE RECORDS SUMMARY | ~2020-08-06 | XMS | Encounter Summary ---
Demographics + + + | Address | [address] | | | [place] [address] | + + + | Home Phone [...] Team Providers + +------+ + | Care Certification And Selection Specialist Name | Role | Phone | [...] + + | 12/09/ | Telephone | [facility] | Emmaneul Daniel MD | Appointment (EGD, | | 2017 | | GASTROENTEROLOGY | [address], [place] | colon Rescheduled to | | | | [address] [place] | [address] [place], [place] | December 24 due to | | | | [address] [place], [place] | [address] | illness) | | | | [address] | | | | | | [phone] | | | +--------+ + + + [...] | Monitor | | MD [address] | Interrogation | | | | | [place], | (Primary Dx); | | | | | [place] [address] | Pacemaker; | | | | | [phone] | Sinoatrial node | | | | | | dysfunction (HCC) | | | | | | with symptomatic | | | | | | bradycardia | +--------+ + + + + | 08/21/ | Implant | Cardiology | Daljit Singletary, | Remote Device | | 2020 | Monitor | | MD [address] | Interrogation | | | | | [place], | (Primary Dx); | | | | | [place] [address] | Pacemaker; | | | | | [phone] | Sinoatrial node | | | | | | dysfunction (HCC) | | | | | | with symptomatic | | | | | | bradycardia | +--------+ + + + + | 08/21/ | Implant | Cardiology | Daljit Singletary, | Remote Device | | 2019 | Monitor | | [address] | Interrogation | | | | | [place], | (Primary Dx); | | | | | [place] [address] | Pacemaker; | | | | | [phone] | Sinoatrial node | | | | | | dysfunction (HCC) | | | | | | with symptomatic | | | | | | bradycardia | +--------+ + + + + | 08/21/ | Implant | Cardiology | Daljit Singletary, | Remote Device | | 2019 | Monitor | | [address] | Interrogation | | | | | [place], | (Primary Dx); | | | | | [place] [address] | Pacemaker; | | | | | [phone] | Sinoatrial node | | | | [...] Dx); | | | | | [place] [address] | Pacemaker; | | | | | [phone] | Sinoatrial node | | | | [...] [address] | | | | | | [place], | | | | | | [place] [address] | | | | | | [phone] | | | | | | | | +--------+ + + + + documented as of this encounter Visit Diagnoses Not on filedocumented in this encounter"
--- OUTSIDE RECORDS SUMMARY | ~2020-08-06 | XMS | Encounter Summary ---
Demographics + + + | Address | [address] | | | [place] [address] | + + + | Home Phone [...] Providers + +------+ + | Care Shipping Clerk Name | Role | Phone | + +------+ + | Kirk French MD | PCP | | + +------+ + Encounter Details +--------+ + + + + | Date | Type | Department | Care Team | Description | +--------+ + + + + | 11/16/ | Hospital | [facility] | Kirk French | Aneurysm (HCC) | | 2017 | Encounter | [facility] | MD [address] | | | | | [address] [place] | [address] | | | | | [place], [place] | [place] [address] | | | | | [address] | [phone] | | | | | [phone] | | | | | | | [...] Dx); | | | | | [place] [address] | Pacemaker; | | | | | [phone] | Sinoatrial node | | | | [...] Dx); | | | | | [place] [address] | Pacemaker; | | | | | [phone] | Sinoatrial node | | | | | | dysfunction (HCC) | | | | | | with symptomatic | | | | | | bradycardia | +--------+ + + + + | 08/21/ | Implant | Cardiology | Daljit Singletary, | Remote Device | | 2019 | Monitor | | MD [address] | Interrogation | | | | | [place], | (Primary Dx); | | | | | [place] [address] | Pacemaker; | | | | | [phone] | Sinoatrial node | | | | | | dysfunction (HCC) | | | | | | with symptomatic | | | | | | bradycardia | +--------+ + + + + | 08/21/ | Implant | Cardiology | Daljit Singletary, | Remote Device | | 2019 | Monitor | | MD [address] | Interrogation | | | | | [place], | (Primary Dx); | | | | | [place] [address] | Pacemaker; | | | | | [phone] | Sinoatrial node | | | | | | dysfunction (HCC) | | | | | | with symptomatic | | | | | | bradycardia | +--------+ + + + + | 08/21/ | Implant | Cardiology | Anshushaistatesha Shaistapawanotto, | Remote Device | | 2019 | Monitor | | [address] | Interrogation | | | | | [place], | (Primary Dx); | | | | | [place] [address] | Pacemaker; | | | | | [phone] | Sinoatrial node | | | | [...] | | | | | | [place] [address] | | | | | | [phone] | | | | | | | [...]
--- OUTSIDE RECORDS SUMMARY | ~2020-08-06 | XMS | Encounter Summary ---
Demographics + + + | Address | [address] | | | [place] [address] | + + + | Home Phone [...] Providers + +------+ + | Care Animal Behaviorist Name | Role | Phone | [...] + | 01/26/ | Telephone | [facility] | Gemini Rashadotto, | Other (chest pain) | | 2013 | | CARDIOLOGY [address] | MD [address] [place] | | | | | [place], | [place], | | | | | [place] [address] | [place] [address] | | | | | [phone] | [phone] | | | | | | | [...] Darlene Tirado RN - 01/26/2014 11:18 AM PSTFred called to report corie hat he was [...] Dx); | | | | | [place] [address] | Pacemaker; | | | | | [phone] | Sinoatrial node | | | | | | dysfunction (HCC) | | | | | | with symptomatic | | | | | | bradycardia | +--------+ + + + + | 08/21/ | Implant | Cardiology | Daljit Singletary, | Remote Device | | 2019 | Monitor | | MD [address] | Interrogation | | | | | [place], | (Primary Dx); | | | | | [place] [address] | Pacemaker; | | | | | [phone] | Sinoatrial node | | | | | | dysfunction (HCC) | | | | | | with symptomatic | | | | | | bradycardia | +--------+ + + + + | 08/21/ | Implant | Cardiology | Daljit Singletary, | Remote Device | | 2019 | Monitor | | MD [address] [place] | Interrogation | | | | | [place], | (Primary Dx); | | | | | [place] [address] | Pacemaker; | | | | | [phone] | Sinoatrial node | | | | | | dysfunction (HCC) | | | | | | with symptomatic | | | | | | bradycardia | +--------+ + + + + | 08/21/ | Implant | Cardiology | Daljit Singletary, | Remote Device | | 2020 | Monitor | | MD [address] [place] | Interrogation | | | | | [place], | (Primary Dx); | | | | | [place] [address] | Pacemaker; | | | | | [phone] | Sinoatrial node | | | | | | dysfunction (HCC) | | | | | | with symptomatic | | | | | | bradycardia | +--------+ + + + + | 08/21/ | Implant | Cardiology | Daljit Singletary, | Remote Device | | 2019 | Monitor | | MD [address] | Interrogation | | | | | [place], | (Primary Dx); | | | | | [place] [address] | Pacemaker; | | | | | [phone] | Sinoatrial node | | | | [...] | | | | | | [place] [address] | | | | | | [phone] | | | | | | | | +--------+ + + + + documented as of this encounter Visit Diagnoses Not on filedocumented in this encounter"
--- OUTSIDE RECORDS SUMMARY | ~2020-08-06 | XMS | Encounter Summary ---
Demographics + + + | Address | [address] | | | [place] [address] | + + + | Home Phone [...] Team Providers + +------+ + | Care Identification Technician Name | Role | Phone | [...] 2019 | | GASTROENTEROLOGY | [address], [place] | | | | | [address] [place] | [address] [place], [place] | | | | | [address] [place], [place] | [address] | | | | | [address] | | | | | | [phone] | | | +--------+ + + + [...] - 01/04/2019 2:27 PM PSTName of Caller: LauraMoe Name of Patient: Moe Sanchez Reason for call: Patient called and prep questions regarding his EGD procedure tomorrow manas Daniel. Routing to clinical staff. Provider/Nurse: Dr. Daniel / Darryn Call back number: [phone] documented in this encou nter Plan of Treatment +--------+ + + + + | Date | Type | Specialty | Care Team | Description | +--------+ + + + + | 08/21/ | Implant | Cardiology | Daljit Singletary, | Remote Device | | 2019 | Monitor | | MD [address] | Interrogation | | | | | [place], | (Primary Dx); | | | | | [place] [address] | Pacemaker; | | | | | [phone] | Sinoatrial node | | | | | | dysfunction (HCC) | | | | | | with symptomatic | | | | | | bradycardia | +--------+ + + + + | 08/21/ | Implant | Cardiology | Daljit Singletary, | Remote Device | | 2019 | Monitor | | MD [address] | Interrogation | | | | | [place], | (Primary Dx); | | | | | [place] [address] | Pacemaker; | | | | | [phone] | Sinoatrial node | | | | | | dysfunction (HCC) | | | | | | with symptomatic | | | | | | bradycardia | +--------+ + + + + | 08/21/ | Implant | Cardiology | Daljit Singletary, | Remote Device | | 2019 | Monitor | | MD [address] | Interrogation | | | | | [place], | (Primary Dx); | | | | | [place] [address] | Pacemaker; | | | | | [phone] | Sinoatrial node | | | | | | dysfunction (HCC) | | | | | | with symptomatic | | | | | | bradycardia | +--------+ + + + + | 08/21/ | Implant | Cardiology | Daljit Singletary, | Remote Device | | 2019 | Monitor | | MD [address] | Interrogation | | | | | [place], | (Primary Dx); | | | | | [place] [address] | Pacemaker; | | | | | [phone] | Sinoatrial node | | | | | | dysfunction (HCC) | | | | | | with symptomatic | | | | | | bradycardia | +--------+ + + + + | 08/21/ | Implant | Cardiology | Daljit Singletary, | Remote Device | | 2019 | Monitor | | MD [address] | Interrogation | | | | | [place], | (Primary Dx); | | | | | [place] [address] | Pacemaker; | | | | | [phone] | Sinoatrial node | | | | [...] | | | | | | [place] [address] | | | | | | [phone] | | | | | | | | +--------+ + + + + documented as of this encounter Visit Diagnoses Not on filedocumented in this encounter"
--- OUTSIDE RECORDS SUMMARY | ~2020-08-06 | XMS | Encounter Summary ---
Demographics + + + | Address | [address] | | | [place] [address] | + + + | Home Phone [...] + +------+ + | Care Talent Acquisition Administrator Name | Role | Phone | [...] + + | 05/01/ | Refill | [facility] | Kirk French | Medication Orders | | 2019 | | [facility] | MD [address] | | | | | [address] | [address] | | | | | [address] | [place] [address] | | | | | [place], [place] | [phone] | | | | | [address] | | | | | | [phone] | | | +--------+--------+ + + + [...] Miscellaneous Notes Addendum Note - Hailey Girard, Cardiac Nurse Specialist - 05/02/2020 2:30 PM PDT Add ended [...] left ankle. Please send both medication to [id number] - [place], [place] - [address] [phone] (Phone) Sia Vasquez Ext 8667 elephone Encounter - Hailey Girard, Cardiac Nurse Specialist - 05/02/2020 8:42 AM PDTLeft VM to patient to call back and let us know what strength of Lyrica he is on so provider can prescribed. E lectronically signed by Hailey Padron Cardiac Nurse Specialist at 05/02/2020 8:43 AM PDTTelephone Encounter - Kirk French MD - 05/02/2020 8:03 AM PDTOk as requestedEl ectronically signed by Kirk French MD at 05/02/2020 8:03 AM PDTTelephone Encounter - Geri Bear Cardiac Nurse Specialist - 05/01/2020 1:50 PM PDTPlease adviseElectronically si gned by Geri Bear Cardiac Nurse Specialist at 05/01/2020 1:50 PM PDTTelephone Encounter - Kailyn Gomes - 05/01/2020 1:48 PM PDTFred, is calling regarding Medication Orders and would like a call back. Additional Call Details: Patient states he is no longer going to the pain management clinic and is requesting for Dr. French to start prescribing Lyrica to help with the pain. Yasmany crowe call him back at [phone] If this is a symptom based call, was patient offered triage? Not Applicable If this is a symptom based call and you were unable to immediately transfer the call to a lorraine bellamy bailing machine operator was caller made aware that if [...] Dx); | | | | | [place] [address] | Pacemaker; | | | | | [phone] | Sinoatrial node | | | | | | dysfunction (HCC) | | | | | | with symptomatic | | | | | | bradycardia | +--------+ + + + + | 08/21/ | Implant | Cardiology | Daljit Singletary | Remote Device | | 2019 | Monitor | | MD [address] | Interrogation | | | | | [place], | (Primary Dx); | | | | | [place] [address] | Pacemaker; | | | | | [phone] | Sinoatrial node | | | | | | dysfunction (HCC) | | | | | | with symptomatic | | | | | | bradycardia | +--------+ + + + + | 08/21/ | Implant | Cardiology | Daljit Singletary, | Remote Device | | 2019 | Monitor | | MD [address] | Interrogation | | | | | [place], | (Primary Dx); | | | | | [place] [address] | Pacemaker; | | | | | [phone] | Sinoatrial node | | | | | | dysfunction (HCC) | | | | | | with symptomatic | | | | | | bradycardia | +--------+ + + + + | 08/21/ | Implant | Cardiology | Daljit Singletary, | Remote Device | | 2019 | Monitor | | MD [address] | Interrogation | | | | | [place], | (Primary Dx); | | | | | [place] [address] | Pacemaker; | | | | | [phone] | Sinoatrial node | | | | | | dysfunction (HCC) | | | | | | with symptomatic | | | | | | bradycardia | +--------+ + + + + | 08/21/ | Implant | Cardiology | Sunshinecherelle Shaistapawanotto, | Remote Device | | 2019 | Monitor | | MD [address] [place] | Interrogation | | | | | [place], | (Primary Dx); | | | | | [place] [address] | Pacemaker; | | | | | [phone] | Sinoatrial node | | | | [...] | | | | | | [place] [address] | | | | | | [phone] | | | | | | | | +--------+ + + + + documented as of this encounter Visit Diagnoses + + | Diagnosis | + + | Left ankle pain, unspecified chronicity - Primary | + + | Remote [...]
--- OUTSIDE RECORDS SUMMARY | ~2020-08-06 | XMS | Encounter Summary ---
Demographics + + + | Address | [address] | | | [place] [address] | + + + | Home Phone [...] Team Providers + +------+ + | Care Sweet Goods Machine Operator Name | Role | Phone [...] | Interrogation | | | | [place], | [place], | (Primary Dx); | | | | [place] [address] | [place] [address] | Presence of | | | | [phone] | [phone] | permanent cardiac | | | | [...] (HCC)Date of Remote Interrogation: 09/06/2019 Refer to [employer] documentation and remote PDF scanned into [employer] for remote interrogation re sults. Data [...] | | | | | [place], | (Primary Dx); | | | | | [place] [address] | Pacemaker; | | | | | [phone] | Sinoatrial node | | | | | | dysfunction (HCC) | | | | | | with symptomatic | | | | | | bradycardia | +--------+ + + + + | 08/21/ | Implant | Cardiology | Daljit Singletary, | Remote Device | | 2019 | Monitor | | MD [address] [place] | Interrogation | | | | | [place], | (Primary Dx); | | | | | [place] [address] | Pacemaker; | | | | | [phone] | Sinoatrial node | | | | | | dysfunction (HCC) | | | | | | with symptomatic | | | | | | bradycardia | +--------+ + + + + | 08/21/ | Implant | Cardiology | Daljit Singletary, | Remote Device | | 2019 | Monitor | | MD [address] [place] | Interrogation | | | | | [place], | (Primary Dx); | | | | | [place] [address] | Pacemaker; | | | | | [phone] | Sinoatrial node | | | | | | dysfunction (HCC) | | | | | | with symptomatic | | | | | | bradycardia | +--------+ + + + + | 08/21/ | Implant | Cardiology | Daljit Singletary, | Remote Device | | 2019 | Monitor | | MD [address] [place] | Interrogation | | | | | [place], | (Primary Dx); | | | | | [place] [address] | Pacemaker; | | | | | [phone] | Sinoatrial node | | | | | | dysfunction (HCC) | | | | | | with symptomatic | | | | | | bradycardia | +--------+ + + + + | 08/21/ | Implant | Cardiology | Daljit Singletary, | Remote Device | | 2019 | Monitor | | MD [address] [place] | Interrogation | | | | | [place], | (Primary Dx); | | | | | [place] [address] | Pacemaker; | | | | | [phone] | Sinoatrial node | | | | [...] | | | | | | [place] [address] | | | | | | [phone] | | | | | | | [...] remote PDF scanned into | | | [employer] for remote interrogation results. Data collected [...]
--- OUTSIDE RECORDS SUMMARY | ~2020-08-06 | XMS | Encounter Summary ---
Demographics + + + | Address | [address] | | | [place] [address] | + + + | Home Phone [...] Providers + +------+ + | Care Cancer Registry Coordinator Name | Role | Phone | [...] + | 11/05/ | Telephone | [facility] | Daljit Singletary, | Chest Pain | | 2016 | | CARDIOLOGY [address] | [address] | | | | | [address] [place], | [place], | | | | | [place] [address] | [place] [address] | | | | | [phone] | [phone] | | | | | | | [...] heart attack before he could come to [place]. (Driving conditions th is morning are also not good to heavy snow in our region last night.) Patient agreed to go i [facility] ED to be seen. Electronically [...] | Monitor | | MD [address] [place] | Interrogation | | | | | [place], | (Primary Dx); | | | | | [place] [address] | Pacemaker; | | | | | [phone] | Sinoatrial node | | | | | | dysfunction (HCC) | | | | | | with symptomatic | | | | | | bradycardia | +--------+ + + + + | 08/21/ | Implant | Cardiology | Daljit Snigletary, | Remote Device | | 2019 | Monitor | | MD [address] [place] | Interrogation | | | | | [place], | (Primary Dx); | | | | | [place] [address] | Pacemaker; | | | | | [phone] | Sinoatrial node | | | | | | dysfunction (HCC) | | | | | | with symptomatic | | | | | | bradycardia | +--------+ + + + + | 08/21/ | Implant | Cardiology | Daljit Singletary, | Remote Device | | 2019 | Monitor | | MD [address] [place] | Interrogation | | | | | [place], | (Primary Dx); | | | | | [place] [address] | Pacemaker; | | | | | [phone] | Sinoatrial node | | | | | | dysfunction (HCC) | | | | | | with symptomatic | | | | | | bradycardia | +--------+ + + + + | 08/21/ | Implant | Cardiology | Daljit Singletary, | Remote Device | | 2019 | Monitor | | MD [address] [place] | Interrogation | | | | | [place], | (Primary Dx); | | | | | [place] [address] | Pacemaker; | | | | | [phone] | Sinoatrial node | | | | | | dysfunction (HCC) | | | | | | with symptomatic | | | | | | bradycardia | +--------+ + + + + | 08/21/ | Implant | Cardiology | Daljit Singletary, | Remote Device | | 2019 | Monitor | | MD [address] [place] | Interrogation | | | | | [place], | (Primary Dx); | | | | | [place] [address] | Pacemaker; | | | | | [phone] | Sinoatrial node | | | | [...] | | | | | | [place] [address] | | | | | | [phone] | | | | | | | | +--------+ + + + + documented as of this encounter Visit Diagnoses Not on filedocumented in this encounter"
--- OUTSIDE RECORDS SUMMARY | ~2020-08-06 | XMS | Encounter Summary ---
Demographics + + + | Address | [address] | | | [place] [address] | + + + | Home Phone [...] Team Providers + +------+ + | Care Portal Developer Name | Role | Phone | [...] Dx) | | | | [address] [place] | [place], | | | | | [place] | [place] [address] | | | | | [address] | [phone] | | | | | [phone] | | | +--------+ + + + [...] Interrogation | | | | | [place], | (Primary Dx); | | | | | [place] [address] | Pacemaker; | | | | | [phone] | Sinoatrial node | | | | | | dysfunction (HCC) | | | | | | with symptomatic | | | | | | bradycardia | +--------+ + + + + | 08/21/ | Implant | Cardiology | Daljit Singletary | Remote Device | | 2019 | Monitor | | MD [address] [place] | Interrogation | | | | | [place], | (Primary Dx); | | | | | [place] [address] | Pacemaker; | | | | | [phone] | Sinoatrial node | | | | | | dysfunction (HCC) | | | | | | with symptomatic | | | | | | bradycardia | +--------+ + + + + | 08/21/ | Implant | Cardiology | Daljit Singletary, | Remote Device | | 2019 | Monitor | | MD [address] [place] | Interrogation | | | | | [place], | (Primary Dx); | | | | | [place] [address] | Pacemaker; | | | | | [phone] | Sinoatrial node | | | | | | dysfunction (HCC) | | | | | | with symptomatic | | | | | | bradycardia | +--------+ + + + + | 08/21/ | Implant | Cardiology | Daljit Singletary, | Remote Device | | 2019 | Monitor | | MD [address] [place] | Interrogation | | | | | [place], | (Primary Dx); | | | | | [place] [address] | Pacemaker; | | | | | [phone] | Sinoatrial node | | | | | | dysfunction (HCC) | | | | | | with symptomatic | | | | | | bradycardia | +--------+ + + + + | 08/21/ | Implant | Cardiology | Anshujohnsoncherelle Shaistapawanotto, | Remote Device | | 2019 | Monitor | | MD [address] [place] | Interrogation | | | | | [place], | (Primary Dx); | | | | | [place] [address] | Pacemaker; | | | | | [phone] | Sinoatrial node | | | | [...] | | | | | | [place] [address] | | | | | | [phone] | | | | | | | [...] Mixed hyperlipidemia - Primary | + + | Remote [...]
--- OUTSIDE RECORDS SUMMARY | ~2020-08-06 | XMS | Encounter Summary ---
Demographics + + + | Address | [address] | | | [place] [address] | + + + | Home Phone [...] Team Providers + +------+ + | Care Blocking Machine Operator Name | Role | Phone [...] + + | 12/19/ | Telephone | [facility] | Kirk French | Triage (chronic IBS) | | 2020 | | [facility] | MD [address] | | | | | [address] | [address] | | | | | [address] | [place] [address] | | | | | [place], [place] | [phone] | | | | | [address] | | | | | | [phone] | | | +--------+ + + + [...] Telephone Encounter - Anh Reina RN - 12/19/2019 11:25 AM PSTPatient contacted clinic w ith concern about chronic IBS. He states he has been in and out of [facility] for his chronic IBS. He states h e has been having rectal bleeding. He has a new GI at [facility] and is scheduled for further stud ies next week. He states the manager of case at [facility] advised him to contact PCP. Abdoul wynn reports the last 3 days he has [...] of the hospital 1-2 times per mario gonsales. Please call patient back at [phone]. If this is a symptom based call, was patient offered triage? Not Applicable If this is a symptom based call and you were unable to immediately transfer the call to a lorraine bellamy extrusion press supervisor was caller made aware that if at [...] Interrogation | | | | | [place], | (Primary Dx); | | | | | [place] [address] | Pacemaker; | | | | | [phone] | Sinoatrial node | | | | | | dysfunction (HCC) | | | | | | with symptomatic | | | | | | bradycardia | +--------+ + + + + | 08/21/ | Implant | Cardiology | Daljit Singletary, | Remote Device | | 2019 | Monitor | | MD [address] [place] | Interrogation | | | | | [place], | (Primary Dx); | | | | | [place] [address] | Pacemaker; | | | | | [phone] | Sinoatrial node | | | | | | dysfunction (HCC) | | | | | | with symptomatic | | | | | | bradycardia | +--------+ + + + + | 08/21/ | Implant | Cardiology | Daljit Singletary, | Remote Device | | 2020 | Monitor | | MD [address] [place] | Interrogation | | | | | [place], | (Primary Dx); | | | | | [place] [address] | Pacemaker; | | | | | [phone] | Sinoatrial node | | | | | | dysfunction (HCC) | | | | | | with symptomatic | | | | | | bradycardia | +--------+ + + + + | 08/21/ | Implant | Cardiology | Daljit Singletary, | Remote Device | | 2019 | Monitor | | MD [address] [place] | Interrogation | | | | | [place], | (Primary Dx); | | | | | [place] [address] | Pacemaker; | | | | | [phone] | Sinoatrial node | | | | | | dysfunction (HCC) | | | | | | with symptomatic | | | | | | bradycardia | +--------+ + + + + | 08/21/ | Implant | Cardiology | Daljit Singletary, | Remote Device | | 2019 | Monitor | | MD [address] [place] | Interrogation | | | | | [place], | (Primary Dx); | | | | | [place] [address] | Pacemaker; | | | | | [phone] | Sinoatrial node | | | | [...] | | | | | | [place] [address] | | | | | | [phone] | | | | | | | | +--------+ + + + + documented as of this encounter Visit Diagnoses Not on filedocumented in this encounter"
--- OUTSIDE RECORDS SUMMARY | ~2020-08-06 | XMS | Encounter Summary ---
Demographics + + + | Address | [address] | | | [place] [address] | + + + | Home Phone [...] Team Providers + +------+ + | Care Aerophysics Engineer Name | Role | Phone | [...] [address] | | | | [place], | [place], | | | | | [place] [address] | [place] [address] | | | | | [phone] | [phone] | | | | | | | [...] willing to try the CT here at [facility] if needed but not at [facility] ...................... .....................Darlene Tirado RN on 04/09/2014 at 14:53 elephone Encounter - Kailey Pruitt RN - 04/09/2014 11:36 AM PDTSpoke to PARISA Russell, she would like patient to decrease clonidine back to ordered three times per day and increase amlodipine fr om 5 to 10 mg per day if pressure is 160 systolic and keep a blood pressure log, call in a w marshall with the pressures and PARISA Russell may [...] systolic. This explained to patient that at [facility] wanted to do a C T [...] took a nitro a nd went into [facility] for treatment. While there he refused a CT. He states he was told by a doctor at [facility] that CTs give him unneccesary radiation, so he refused a CT from [facility]. He states that he has been adjusting his clonidine to reduce hos blood pressure. He normally takes 3 a day but is taking 4-5 a day. Advised him I would speak with PARISA Waldron and find out if she has any instructions and get back to him. He states he is celeste ling to go to [facility] but will not go back to [facility]. documented in this encounter Plan of Treatment +--------+ + + + + | Date | Type | Specialty | Care Team | Description | +--------+ + + + + | 08/21/ | Implant | Cardiology | Daljit Singletary, | Remote Device | | 2019 | Monitor | | MD [address] [place] | Interrogation | | | | | [place], | (Primary Dx); | | | | | [place] [address] | Pacemaker; | | | | | [phone] | Sinoatrial node | | | | | | dysfunction (HCC) | | | | | | with symptomatic | | | | | | bradycardia | +--------+ + + + + | 08/21/ | Implant | Cardiology | Daljit Singletary, | Remote Device | | 2019 | Monitor | | MD [address] [place] | Interrogation | | | | | [place], | (Primary Dx); | | | | | [place] [address] | Pacemaker; | | | | | [phone] | Sinoatrial node | | | | | | dysfunction (HCC) | | | | | | with symptomatic | | | | | | bradycardia | +--------+ + + + + | 08/21/ | Implant | Cardiology | Daljit Singletary, | Remote Device | | 2019 | Monitor | | MD [address] [place] | Interrogation | | | | | [place], | (Primary Dx); | | | | | [place] [address] | Pacemaker; | | | | | [phone] | Sinoatrial node | | | | | | dysfunction (HCC) | | | | | | with symptomatic | | | | | | bradycardia | +--------+ + + + + | 08/21/ | Implant | Cardiology | Daljit Singletary, | Remote Device | | 2019 | Monitor | | MD [address] [place] | Interrogation | | | | | [place], | (Primary Dx); | | | | | [place] [address] | Pacemaker; | | | | | [phone] | Sinoatrial node | | | | | | dysfunction ([facility]) | | | | | | with symptomatic | | | | | | bradycardia | +--------+ + + + + | 08/21/ | Implant | Cardiology | Daljit Singletary, | Remote Device | | 2019 | Monitor | | MD [address] [place] | Interrogation | | | | | [place], | (Primary Dx); | | | | | [place] [address] | Pacemaker; | | | | | [phone] | Sinoatrial node | | | | [...] | | | | | | [place] [address] | | | | | | [phone] | | | | | | | | +--------+ + + + + documented as of this encounter Visit Diagnoses Not on filedocumented in this encounter
--- OUTSIDE RECORDS SUMMARY | ~2020-08-06 | XMS | Encounter Summary ---
Demographics + + + | Address | [address] | | | [place] [address] | + + + | Home Phone [...] Providers + +------+ + | Care Wash Oil Cooler Operator Name | Role | Phone | + +------+ + | Kirk French MD | PCP | | + +------+ + Encounter Details +--------+ + + + + | Date | Type | Department | Care Team | Description | +--------+ + + + + | 01/05/ | Hospital | [facility] | Emmanuel Daniel MD | Functional diarrhea | | 2019 | Encounter | MED CTR MP INTRA OP | [address], [place] | (Primary Dx); Weight | | | | [address] | [address] [place] | loss | | | | [place] | [address] | | | | | [address] | | | | | | [phone] | | | +--------+ + + + [...] for a few hours. Date Last Reviewed: 09/22/201619993677-3619 [employer]. [address] [place] [address]. All righ ts reserved. This information is [...] vomiting, or vomiting blood Date Last Reviewed: 05/22/201619999629-4185 [employer]. [address] [place] [address], [place] [address]. All righ ts reserved. This information is [...] You can't be awakened Date Last Reviewed: 09/08/201619992374-2907 [employer]. [address] [place] [address]. All righ ts reserved. This information is [...] + + + +---------+ + + | Kress-3 Fatty | CAPS, one capsule by | [...] We will proceed with upper endoscopy colonoscopy Emmanuel Teran MD - 12/26/2018 10:00 AM PST Moe Sanchez is an 58 y.o. male. The patient is seen for diarrhea and GI tract bleeding. Outside records are reviewed The patient has had intermittent episodes of diarrhea since serving in the in [facility]. His last episodes of diarrhea started [...] inflammatory bowel disease. CT scan done through [facility] November s howed mild diverticulosis without [...] Endoscopy Patient: Moe Sanchez : 1960 Acct: [id number] Exam Date: December Doctor: Emmanuel Daniel MD [...] unable to reach your physician, call [facility] Emergency Department at [address] Your [...] Exams Patient: Moe Sanchez : 1960 Acct: [id number] Exam Date: December Doctor: Emmanuel Daniel MD [...] unable to reach your physician, call [facility] Emergency Department at [address] Your [...] | Monitor | | MD [address] | Interrogation | | | | | [place], | (Primary Dx); | | | | | [place] [address] | Pacemaker; | | | | | [phone] | Sinoatrial node | | | | | | dysfunction (HCC) | | | | | | with symptomatic | | | | | | bradycardia | +--------+ + + + + | 08/21/ | Implant | Cardiology | Daljit Singletary, | Remote Device | | 2019 | Monitor | | MD [address] | Interrogation | | | | | [place], | (Primary Dx); | | | | | [place] [address] | Pacemaker; | | | | | [phone] | Sinoatrial node | | | | | | dysfunction (HCC) | | | | | | with symptomatic | | | | | | bradycardia | +--------+ + + + + | 08/21/ | Implant | Cardiology | Daljit Singletary, | Remote Device | | 2020 | Monitor | | MD [address] | Interrogation | | | | | [place], | (Primary Dx); | | | | | [place] [address] | Pacemaker; | | | | | [phone] | Sinoatrial node | | | | | | dysfunction (HCC) | | | | | | with symptomatic | | | | | | bradycardia | +--------+ + + + + | 08/21/ | Implant | Cardiology | Daljit Singletary, | Remote Device | | 2019 | Monitor | | MD [address] | Interrogation | | | | | [place], | (Primary Dx); | | | | | [place] [address] | Pacemaker; | | | | | [phone] | Sinoatrial node | | | | | | dysfunction (HCC) | | | | | | with symptomatic | | | | | | bradycardia | +--------+ + + + + | 08/21/ | Implant | Cardiology | Daljit Singletary, | Remote Device | | 2019 | Monitor | | MD [address] | Interrogation | | | | | [place], | (Primary Dx); | | | | | [place] [address] | Pacemaker; | | | | | [phone] | Sinoatrial node | | | | [...] | | | | | | [address], | | | | | | [place] [address] | | | | | | [phone] | | | | | | | [...] + + | Performed at: 01 - [facility] [address] [place] [address], | REFERENCE LAB | | [place], [place] [id number] Spiral Gear Generator: Miguel Galarza MD, Phone: | [facility] - KINA | | [phone] | | + + + + + + + + | Performing | Address | City/State/Zipcode | Phone Number | | Organization | | | | + + + + + | REFERENCE LAB | [address] | [place], [place] | [phone] | | [facility] | [facility] | [address] | | + + + + + [...] [address], | REFERENCE LAB | | [place], [place] [id number] Spiral Gear Generator: Miguel Galarza MD, Phone: | [facility] | | [phone] | | + + + + + + + + | Performing | Address | City/State/Zipcode | Phone Number | | Organization | | | | + + + + + | REFERENCE LAB | [address] | [place], [place] | [phone] | | [facility] | [address] | [address] | | + + + + + [...] [address] | [place] | [phone] | | [facility] | | [address] | | | - LABORATORY | | [...] | [address] | [place] | [phone] | | [facility] | | [address] | | | - LABORATORY | | [...] + | [facility] | [address] | [place], [place] | [phone] | | [facility] | | [address] | | | - LABORATORY | | [...] + | [facility] | [address] | [place] | [phone] | | [facility] | | [address] | | | - LABORATORY | | [...] [address] | [place] | [phone] | | [facility] | | [address] | | | - LABORATORY | | [...] + | [facility] | [address] | [place] | [phone] | | [facility] | | [address] | | | - LABORATORY | | | | + + + + + EGD (01/05/2019 8:36 AM PST) + + | Specimen | + + | | + + + + -+ | Narrative | Performed At | + + -+ | | [facility] | | GastroenterologyPatient Name: Moe SanchezLaurelpasha Date: | PROVATION | | 01/05/2019 8:36 AMMRN: [id number] #: [id number] of : | | | 9Admit Type: AmbulatoryAge: 58Room: [facility] 01Gender: MaleNote | | | Status: FinalizedAttending MD: Emmanuel Daniel , MDProcedure: | | | Upper GI endoscopyIndications: Diarrhea, Weight | | | lossProviders: Emmanuel Daniel MD, Heidi Gonzalezchfield, | | | RN, Kim Hicks, Oracle Sql Developer, | | | Jarett Barakat MD [...] physician, the nurse, the anesthesiologist and the oil field technician | | | in the [...] | | Imaging was performed using the [employer] Intelligent Chromo | | | Endoscopy (FICE) [...] Scope In: 8:43:57 AMScope Out: 8:49:50 AM [facility]. | | | [facility] [address], [address] [place] [address] | | | [phone] | | |Recommendation: | | | - [...] |Scope Out: 8:49:50 AM | | | [facility]. [facility] [address], [address] [facility], [place], [place] | | | [address] | | + + -+ + +---------+ [...] | PROVATION | | 01/05/2019 8:36 AMMRN: [id number] #: [id number] of : | | | 9Admit Type: AmbulatoryAge: 58Room: [facility] 01Gender: MaleNote | | | Status: FinalizedAttending MD: Emmanuel Daniel , [facility]cedure: | | | ColonoscopyIndications: Clinically significant diarrhea of | | | unexplained origin, Weight lossProviders: | | | Emmanuel Daniel MD, Heidi An RN, [employer] | | | Fiorella Hicks, Oracle Sql Developer, Jarett P. | | | MD Roshni [...] | | | the anesthesiologist and the oil field technician in the endoscopy suite. | [...] AMScope Out: | | | 9:06:28 AM [facility], [address] [facility], | | | [place] [address] | | | - Discharge patient to [...] |Scope Out: 9:06:28 AM | | | [facility], [facility] [address] [place], [place] | | | [address] | | + + -+ + +---------+ [...] | | | (atherosclerotic heart disease of [place] coronary artery without | | | angina [...] | | | microscopic colitis. BES:[facility]:C3NR GROSS DESCRIPTION: A. The | | | specimen, labeled "Charlotte, duodenal biopsy" is received in formalin | | | and consists of seven 0.1-0.5 cm lin fragments. Entirely submitted in | | | (A1). B. The specimen, labeled "Charlotte, right colon" is received | | | in formalin and consists of six 0.2-0.3 cm lin fragments. Entirely | | | submitted in (B1). C. The specimen, labeled "Charlotte, left colon" | | | is received in formalin and consists of six 0.2-0.3 cm lin-pink | | | fragments. Entirely submitted in (C1). am:AMB:rds PERFORMING | | | LABORATORY: The technical component was performed by [employer] | | | [employer], [address] [place] [address] (Yard Conductor: | | | Kailey Stafford MD; CLIA# [id number]). Professional interpretation was | | | performed by [employer], [facility], [facility] | | | [place] [address] (Yard Conductor: Ishaan | | | Anthony Dao; CLIA#: [id number]). Diagnostician: Ishaan Fitzpatrick | | | Sylwia [...]
--- OUTSIDE RECORDS SUMMARY | ~2020-08-06 | XMS | Encounter Summary ---
Demographics + + + | Address | [address] | | | [place] [address] | + + + | Home Phone [...] Team Providers + +------+ + | Care Desolderer Name | Role | Phone | + +------+ + | Kirk French MD | PCP | | + +------+ + Encounter Details +--------+ + + + + | Date | Type | Department | Care Team | Description | +--------+ + + + + | 07/21/ | Hospital | [facility] | [place], [place], | Palpitations; | | 2018 | Encounter | MED CTR NUCLEAR | MD [address] | Presence of | | | | MEDICINE [address] [place], | permanent cardiac | | | | [place], | [place] [address] | pacemaker; | | | | [address] | [phone] | Sinoatrial node | | | | [phone] | | dysfunction ([facility]) | +--------+ + + + + Social [...] + + + +---------+ + + | [place]-3 Fatty | CAPS, one capsule by [...] 1:11 PM PDTAssociated Order(s): EVENT MONITOR 4 WEEKWir ele even study from 07/21 until 08/22/2018. Baseline [...] 2020 | Monitor | | [address] | Interrogation | | | | | [place], | (Primary Dx); | | | | | [place] [address] | Pacemaker; | | | | | [phone] | Sinoatrial node | | | | | | dysfunction (HCC) | | | | | | with symptomatic | | | | | | bradycardia | +--------+ + + + + | 08/21/ | Implant | Cardiology | Daljit Singletary, | Remote Device | | 2019 | Monitor | | MD [address] | Interrogation | | | | | [place], | (Primary Dx); | | | | | [place] [address] | Pacemaker; | | | | | [phone] | Sinoatrial node | | | | | | dysfunction ([facility]) | | | | | | with symptomatic | | | | | | bradycardia | +--------+ + + + + | 08/21/ | Implant | Cardiology | Daljit Singletary, | Remote Device | | 2019 | Monitor | | MD [address] | Interrogation | | | | | [place], | (Primary Dx); | | | | | [place] [address] | Pacemaker; | | | | | [phone] | Sinoatrial node | | | | | | dysfunction (HCC) | | | | | | with symptomatic | | | | | | bradycardia | +--------+ + + + + | 08/21/ | Implant | Cardiology | Sunshinecherelle Daljit, | Remote Device | | 2020 | Monitor | | MD [address] | Interrogation | | | | | [place], | (Primary Dx); | | | | | [place] [address] | Pacemaker; | | | | | [phone] | Sinoatrial node | | | | | | dysfunction (HCC) | | | | | | with symptomatic | | | | | | bradycardia | +--------+ + + + + | 08/21/ | Implant | Cardiology | Daljit Singletary, | Remote Device | | 2019 | Monitor | | MD [address] | Interrogation | | | | | [place], | (Primary Dx); | | | | | [place] [address] | Pacemaker; | | | | | [phone] | Sinoatrial node | | | | [...] W | | | | | | [place], | | | | | | [place] [address] | | | | | | [phone] | | | | | | | [...] (HCC) Sinoatrial node dysfunction | + + | [...]
--- OUTSIDE RECORDS SUMMARY | ~2020-08-06 | XMS | Encounter Summary ---
Demographics + + + | Address | [address] | | | [place] [address] | + + + | Home Phone [...] Providers + +------+ + | Care Rental Car Porter Name | Role | Phone | + +------+ + PCP | Unavailable | + +------+ + Encounter Details +--------+ + + + + | Date | Type | Department | Care Team | Description | +--------+ + + + + | 02/28/ | Hospital | [facility] | Geri Angel, | | | 2011 | Encounter | MED CTR XRAY [address] | CLINIC CLERK [address] | | | | | [place] | [address] [place] | | | | | [place] [address] | [address] | | | | | [phone] | | | +--------+ + + + [...] Dx); | | | | | [place] [address] | Pacemaker; | | | | | [phone] | Sinoatrial node | | | | [...] Dx); | | | | | [place] [address] | Pacemaker; | | | | | [phone] | Sinoatrial node | | | | | | dysfunction (HCC) | | | | | | with symptomatic | | | | | | bradycardia | +--------+ + + + + | 08/21/ | Implant | Cardiology | Daljit Singletary, | Remote Device | | 2019 | Monitor | | MD [address] | Interrogation | | | | | [place], | (Primary Dx); | | | | | [place] [address] | Pacemaker; | | | | | [phone] | Sinoatrial node | | | | | | dysfunction (HCC) | | | | | | with symptomatic | | | | | | bradycardia | +--------+ + + + + | 08/21/ | Implant | Cardiology | Daljit Singletary, | Remote Device | | 2019 | Monitor | | MD [address] | Interrogation | | | | | [place], | (Primary Dx); | | | | | [place] [address] | Pacemaker; | | | | | [phone] | Sinoatrial node | | | | | | dysfunction (HCC) | | | | | | with symptomatic | | | | | | bradycardia | +--------+ + + + + | 08/21/ | Implant | Cardiology | Daljit Singletary, | Remote Device | | 2019 | Monitor | | MD [address] | Interrogation | | | | | [place], | (Primary Dx); | | | | | [place] [address] | Pacemaker; | | | | | [phone] | Sinoatrial node | | | | [...] W | | | | | | [place], | | | | | | [place] [address] | | | | | | [phone] | | | | | | | [...] Performed At | + + + | [facility] Diagnostic Imaging Department | [place] | | [address], [place] | [facility] | | LEFT HEART CATHETERIZATION | DIAG G | | REPORT 02/29/2012 HEMODYNAMICS: Aortic [...] was taken to | | | Cardiac Oil Burner Journeyman. He was prepared and draped in the usual fashion | | | under a sterile technique and local anesthesia, percutaneous access | | | was obtained using #6- Brazilian sheath in the right femoral artery. | | | Right heart cath was not performed in this patient. Left | | | ventriculography was performed using #6-Brazilian pigtail catheter. | | | The selective coronary angiography were then performed in several | | | sagittal and oblique projection using the 6-Brazilian JL 4 and #6 Brazilian | | | 3DRC diagnostic catheters. The [...] Transcribed | | | Date/Time: 02/29/2012 09:09 Solar Electric/Photovoltaic Installer: | | | <Electronically Signed by Daljit Singletary MD [facility]> 02/29/12 | | | 1002 | | + + + + + | Procedure Note | + + | Kalpesh Brown Conversion - 12/29/2013 5:04 PM [facility] | | Diagnostic Imaging Department | | [address] [facility] | | | | | [...] patient was taken to Cardiac | | Oil Burner Journeyman. He was prepared and draped in the usual fashion under a sterile | | technique and local anesthesia, percutaneous access was obtained using #6- | | Brazilian sheath in the right femoral artery. Right heart cath was not performed | | in this patient. Left ventriculography was performed using #6-Brazilian pigtail | | catheter. The selective coronary angiography were then performed in several | | sagittal and oblique projection using the 6-Brazilian JL 4 and #6 Brazilian 3DRC | | diagnostic catheters. The patient [...] | Transcribed Date/Time: 02/29/2012 09:09 | | Solar Electric/Photovoltaic Installer: | | <Electronically Signed by Daljit Singletary MD [facility]> 02/29/12 1002 | + + + [...]
--- OUTSIDE RECORDS SUMMARY | ~2020-08-06 | XMS | Encounter Summary ---
Demographics + + + | Address | [address] | | | [place] [address] | + + + | Home Phone [...] Providers + +------+ + | Care Computer Aided Design Designer Name | Role | Phone | [...] + + | 01/12/ | Tele[facility] | [facility] | Silvia, | Other (plan of care) | | 2018 | | CARDIOLOGY [address] | PARISA [place] [address] | | | | | [place], | [place], | | | | | [place] [address] | [place] [address] | | | | | [phone] | [phone] | | | | | | | [...] Janeen Kemp ARNP - 01/17/2019 5:58 PM PSTEleanoaileen, Did patient decide on the Ranexa? Electronically signed by: PARISA Lomas 01/17/2019 17:59 eleJaneen Hendrickson ARNP - 01/16/2019 2:57 PM PST1. Definitely [...] Electronically signed by: PARISA Lomas 01/16/2019 15:01 eleMariana Glez RN - 01/16/2019 12:09 PM PSTPatient called, [...] Valentine RN on 01/16/19 at 11:26 elephone Encount Darlene Woodson RN - 01/13/2019 1:18 PM PSTLeft message at cell number for patient t o return my call. Attempted to contact patient at home number, mailbox not set up .......... .................................Darlene Tirado RN on 01/13/19 at 13:19 elephone Darlene Mena RN - 01/13/2019 8:42 AM PSTLeft message at cell number for patient to return my call. Attempted to contact patient at home number, mailbox not set up ............ ...............................Darlene Tirado RN on 01/13/19 at 8:44 elephone Mariana Garcia RN - 01/12/2019 5:25 PM PSTReceived voicemail [...] PSTPatient was here to see Janeen on S he has spoken with Dr Brasher [...] | Monitor | | MD [address] [place] | Interrogation | | | | | [place], | (Primary Dx); | | | | | [place] [address] | Pacemaker; | | | | | [phone] | Sinoatrial node | | | | | | dysfunction (HCC) | | | | | | with symptomatic | | | | | | bradycardia | +--------+ + + + + | 08/21/ | Implant | Cardiology | Daljit Singletary, | Remote Device | | 2019 | Monitor | | MD [address] [place] | Interrogation | | | | | [place], | (Primary Dx); | | | | | [place] [address] | Pacemaker; | | | | | [phone] | Sinoatrial node | | | | | | dysfunction (HCC) | | | | | | with symptomatic | | | | | | bradycardia | +--------+ + + + + | 08/21/ | Implant | Cardiology | Daljit Singletary, | Remote Device | | 2020 | Monitor | | MD [address] [place] | Interrogation | | | | | [place], | (Primary Dx); | | | | | [place] [address] | Pacemaker; | | | | | [phone] | Sinoatrial node | | | | | | dysfunction (HCC) | | | | | | with symptomatic | | | | | | bradycardia | +--------+ + + + + | 08/21/ | Implant | Cardiology | Daljit Singletary, | Remote Device | | 2019 | Monitor | | MD [address] [place] | Interrogation | | | | | [place], | (Primary Dx); | | | | | [place] [address] | Pacemaker; | | | | | [phone] | Sinoatrial node | | | | | | dysfunction (HCC) | | | | | | with symptomatic | | | | | | bradycardia | +--------+ + + + + | 08/21/ | Implant | Cardiology | Daljit Singletary, | Remote Device | | 2019 | Monitor | | MD [address] [place] | Interrogation | | | | | [place], | (Primary Dx); | | | | | [place] [address] | Pacemaker; | | | | | [phone] | Sinoatrial node | | | | [...] | | | | | | [place] [address] | | | | | | [phone] | | | | | | | | +--------+ + + + + documented as of this encounter Visit Diagnoses Not on filedocumented in this encounter"
--- OUTSIDE RECORDS SUMMARY | ~2020-08-06 | XMS | Encounter Summary ---
Demographics + + + | Address | [address] | | | [place] [address] | + + + | Home Phone [...] Providers + +------+ + | Care Magnetic Tape Typewriter Operator Name | Role | Phone | [...] Provider Unknown | | | | | [place], [place] | [phone] | | | | | [address] | | | | | | [phone] | | | +--------+ + + + [...] + + + +---------+ + + | [place]-3 Fatty | CAPS, one capsule by | [...] | | | | | [place], | (Primary Dx); | | | | | [place] [address] | Pacemaker; | | | | | [phone] | Sinoatrial node | | | | | | dysfunction (HCC) | | | | | | with symptomatic | | | | | | bradycardia | +--------+ + + + + | 08/21/ | Implant | Cardiology | Daljit Singletary, | Remote Device | | 2019 | Monitor | | [address] | Interrogation | | | | | [place], | (Primary Dx); | | | | | [place] [address] | Pacemaker; | | | | | [phone] | Sinoatrial node | | | | | | dysfunction (HCC) | | | | | | with symptomatic | | | | | | bradycardia | +--------+ + + + + | 08/21/ | Implant | Cardiology | Daljit Singletary, | Remote Device | | 2019 | Monitor | | MD [address] | Interrogation | | | | | [place], | (Primary Dx); | | | | | [place] [address] | Pacemaker; | | | | | [phone] | Sinoatrial node | | | | | | dysfunction (HCC) | | | | | | with symptomatic | | | | | | bradycardia | +--------+ + + + + | 08/21/ | Implant | Cardiology | Daljit Singletary, | Remote Device | | 2020 | Monitor | | MD [address] | Interrogation | | | | | [place], | (Primary Dx); | | | | | [place] [address] | Pacemaker; | | | | | [phone] | Sinoatrial node | | | | | | dysfunction (HCC) | | | | | | with symptomatic | | | | | | bradycardia | +--------+ + + + + | 08/21/ | Implant | Cardiology | Daljit Singletary, | Remote Device | | 2019 | Monitor | | [address] | Interrogation | | | | | [place], | (Primary Dx); | | | | | [place] [address] | Pacemaker; | | | | | [phone] | Sinoatrial node | | | | [...] W | | | | | | [place], | | | | | | [place] [address] | | | | | | [phone] | | | | | | | [...]
--- OUTSIDE RECORDS SUMMARY | ~2020-08-06 | XMS | Encounter Summary ---
Demographics + + + | Address | [address] | | | [place] [address] | + + + | Home Phone [...] Providers + +------+ + | Care Quill Buncher And Sorter Name | Role | Phone | [...] + + | 07/12/ | Office | [facility] | Michael Amanda, | Preventative health | | 2013 | Visit | MEDICINE [place] | DO [address] | care (Primary Dx); | | | | [address] | [place], [place] | Prostate cancer | | | | [place], [place] | [address] | screening; | | | | [address] | | Hypercholesterolemia | | | | [phone] | | ; Hypertension; | | | [...] clear cause was found. He has seen sewing machine repairer and has a rechec k plan. Possible [...] Interrogation | | | | | [place], | (Primary Dx); | | | | | [place] [address] | Pacemaker; | | | | | [phone] | Sinoatrial node | | | | | | dysfunction (HCC) | | | | | | with symptomatic | | | | | | bradycardia | +--------+ + + + + | 08/21/ | Implant | Cardiology | Daljit Singletary, | Remote Device | | 2019 | Monitor | | MD [address] [place] | Interrogation | | | | | [place], | (Primary Dx); | | | | | [place] [address] | Pacemaker; | | | | | [phone] | Sinoatrial node | | | | | | dysfunction (HCC) | | | | | | with symptomatic | | | | | | bradycardia | +--------+ + + + + | 08/21/ | Implant | Cardiology | Daljit Singletary, | Remote Device | | 2019 | Monitor | | MD [address] [place] | Interrogation | | | | | [place], | (Primary Dx); | | | | | [place] [address] | Pacemaker; | | | | | [phone] | Sinoatrial node | | | | | | dysfunction (HCC) | | | | | | with symptomatic | | | | | | bradycardia | +--------+ + + + + | 08/21/ | Implant | Cardiology | Daljit Singletary, | Remote Device | | 2020 | Monitor | | MD [address] [place] | Interrogation | | | | | [place], | (Primary Dx); | | | | | [place] [address] | Pacemaker; | | | | | [phone] | Sinoatrial node | | | | | | dysfunction (HCC) | | | | | | with symptomatic | | | | | | bradycardia | +--------+ + + + + | 08/21/ | Implant | Cardiology | Daljit Singletary, | Remote Device | | 2019 | Monitor | | MD [address] [place] | Interrogation | | | | | [place], | (Primary Dx); | | | | | [place] [address] | Pacemaker; | | | | | [phone] | Sinoatrial node | | | | [...] | | | | | | [place], | | | | | | [place] [address] | | | | | | [phone] | | | | | | | [...] Tobacco use disorder | + + | Remote Device Interrogation [...]
--- OUTSIDE RECORDS SUMMARY | ~2020-08-06 | XMS | Encounter Summary ---
Demographics + + + | Address | [address] | | | [place] [address] | + + + | Home Phone [...] Team Providers + +------+ + | Care Generation Engineering Technologist Name | Role | Phone [...] [address] | | | | | [place], [place] | [address] | | | | | [address] | [place] | | | | | [phone] | [address] | | | | | | [phone] | | | | | | | [...] 2019 | Monitor | | [address] | Interrogation | | | | | [place], | (Primary Dx); | | | | | [place] [address] | Pacemaker; | | | | | [phone] | Sinoatrial node | | | | | | dysfunction (HCC) | | | | | | with symptomatic | | | | | | bradycardia | +--------+ + + + + | 08/21/ | Implant | Cardiology | Daljit Singletary, | Remote Device | | 2019 | Monitor | | MD [address] | Interrogation | | | | | [place], | (Primary Dx); | | | | | [place] [address] | Pacemaker; | | | | | [phone] | Sinoatrial node | | | | | | dysfunction (HCC) | | | | | | with symptomatic | | | | | | bradycardia | +--------+ + + + + | 08/21/ | Implant | Cardiology | Daljit Singletary, | Remote Device | | 2019 | Monitor | | MD [address] | Interrogation | | | | | [place], | (Primary Dx); | | | | | [place] [address] | Pacemaker; | | | | | [phone] | Sinoatrial node | | | | | | dysfunction (HCC) | | | | | | with symptomatic | | | | | | bradycardia | +--------+ + + + + | 08/21/ | Implant | Cardiology | Daljit Singletary, | Remote Device | | 2019 | Monitor | | MD [address] | Interrogation | | | | | [place], | (Primary Dx); | | | | | [place] [address] | Pacemaker; | | | | | [phone] | Sinoatrial node | | | | | | dysfunction (HCC) | | | | | | with symptomatic | | | | | | bradycardia | +--------+ + + + + | 08/21/ | Implant | Cardiology | Daljit Singletary, | Remote Device | | 2019 | Monitor | | [address] | Interrogation | | | | | [place], | (Primary Dx); | | | | | [place] [address] | Pacemaker; | | | | | [phone] | Sinoatrial node | | | | [...] | | | | | | [place], | | | | | | [place] [address] | | | | | | [phone] | | | | | | | [...]
--- OUTSIDE RECORDS SUMMARY | ~2020-08-06 | XMS | Encounter Summary ---
Demographics + + + | Address | [address] | | | [place] [address] | + + + | Home Phone [...] Providers + +------+ + | Care Icing Maker Name | Role | Phone | [...] + + | 04/21/ | Telephone | [facility] | Emmanuel Daniel MD | Irritable Bowel | | 2019 | | GASTROENTEROLOGY | [address], [place] | Syndrome | | | | [address] [place] | [address] [place], [place] | | | | | [address] [place], [place] | [address] | | | | | [address] | | | | | | [phone] | | | +--------+ + + + [...] is still macy hermelinda to hear from [facility] [employer], records were refaxed 04/10/2019. She will get [...] 2019 | Monitor | | [address] | Interrogation | | | | | [place], | (Primary Dx); | | | | | [place] [address] | Pacemaker; | | | | | [phone] | Sinoatrial node | | | | | | dysfunction (HCC) | | | | | | with symptomatic | | | | | | bradycardia | +--------+ + + + + | 08/21/ | Implant | Cardiology | Daljit Singletary, | Remote Device | | 2020 | Monitor | | MD [address] | Interrogation | | | | | [place], | (Primary Dx); | | | | | [place] [address] | Pacemaker; | | | | | [phone] | Sinoatrial node | | | | | | dysfunction (HCC) | | | | | | with symptomatic | | | | | | bradycardia | +--------+ + + + + | 08/21/ | Implant | Cardiology | Daljit Singletary, | Remote Device | | 2019 | Monitor | | MD [address] | Interrogation | | | | | [place], | (Primary Dx); | | | | | [place] [address] | Pacemaker; | | | | | [phone] | Sinoatrial node | | | | | | dysfunction (HCC) | | | | | | with symptomatic | | | | | | bradycardia | +--------+ + + + + | 08/21/ | Implant | Cardiology | Daljit Singletary, | Remote Device | | 2019 | Monitor | | MD [address] | Interrogation | | | | | [place], | (Primary Dx); | | | | | [place] [address] | Pacemaker; | | | | | [phone] | Sinoatrial node | | | | | | dysfunction (HCC) | | | | | | with symptomatic | | | | | | bradycardia | +--------+ + + + + | 08/21/ | Implant | Cardiology | Daljit Singletary, | Remote Device | | 2019 | Monitor | | MD [address] | Interrogation | | | | | [facility] [place], | (Primary Dx); | | | | | [place] [address] | Pacemaker; | | | | | [phone] | Sinoatrial node | | | | [...] | | | | | | [place] [address] | | | | | | [phone] | | | | | | | | +--------+ + + + + documented as of this encounter Visit Diagnoses Not on filedocumented in this encounter"
--- OUTSIDE RECORDS SUMMARY | ~2020-08-06 | XMS | Encounter Summary ---
Demographics + + + | Address | [address] | | | [place] [address] | + + + | Home Phone [...] Providers + +------+ + | Care Flight Tower Dispatcher Name | Role | Phone | + +------+ + | Kirk French MD | PCP | | + +------+ + Encounter Details +--------+ + + + + | Date | Type | Department | Care Team | Description | +--------+ + + + + | 06/17/ | Orders Only | [facility] | Silvia, | Hyperlipidemia, | | 2016 | | CARDIOLOGY [address] | Janeen RN INTERNAL MEDICINE [address] | mixed | | | | [place], | [place], | | | | | [place] [address] | [place] [address] | | | | | [phone] | [phone] | | | | | | | [...] | | | | | [place] [place], | (Primary Dx); | | | | | [place] [address] | Pacemaker; | | | | | [phone] | Sinoatrial node | | | | | | dysfunction (HCC) | | | | | | with symptomatic | | | | | | bradycardia | +--------+ + + + + | 08/21/ | Implant | Cardiology | Daljit Singletary, | Remote Device | | 2019 | Monitor | | [address] | Interrogation | | | | | [place], | (Primary Dx); | | | | | [place] [address] | Pacemaker; | | | | | [phone] | Sinoatrial node | | | | | | dysfunction (HCC) | | | | | | with symptomatic | | | | | | bradycardia | +--------+ + + + + | 08/21/ | Implant | Cardiology | Daljit Singletary, | Remote Device | | 2019 | Monitor | | MD [address] | Interrogation | | | | | [place], | (Primary Dx); | | | | | [place] [address] | Pacemaker; | | | | | [phone] | Sinoatrial node | | | | | | dysfunction (HCC) | | | | | | with symptomatic | | | | | | bradycardia | +--------+ + + + + | 08/21/ | Implant | Cardiology | Daljit Singletary, | Remote Device | | 2019 | Monitor | | MD [address] | Interrogation | | | | | [place], | (Primary Dx); | | | | | [place] [address] | Pacemaker; | | | | | [phone] | Sinoatrial node | | | | | | dysfunction (HCC) | | | | | | with symptomatic | | | | | | bradycardia | +--------+ + + + + | 09/30/ | Implant | Cardiology | Daljit Singletary, | Remote Device | | 2019 | Monitor | | [address] | Interrogation | | | | | [place], | (Primary Dx); | | | | | [place] [address] | Pacemaker; | | | | | [phone] | Sinoatrial node | | | | [...] W | | | | | | [place], | | | | | | [place] [address] | | | | | | [phone] | | | | | | | [...]
--- OUTSIDE RECORDS SUMMARY | ~2020-08-06 | XMS | Encounter Summary ---
Demographics + + + | Address | [address] | | | [place] [address] | + + + | Home Phone [...] Providers + +------+ + | Care Varnish Cooker Name | Role | Phone | + [...] W | reprogramming/check | | | | [place], | [address] [place] | [place] | | | | [place] [address] | [place] [address] | (Primary Dx); | | | | [phone] | [phone] | Pacemaker - | | | | [...] Sinoatrial node dysfunction (HCC) PATIENT NAME: Moe Sacnhez : 1960: AGE: 58 y.o. Pacemaker Evaluation [...] Interrogation | | | | | [place], | (Primary Dx); | | | | | [place] [address] | Pacemaker; | | | | | [phone] | Sinoatrial node | | | | | | dysfunction (HCC) | | | | | | with symptomatic | | | | | | bradycardia | +--------+ + + + + | 08/21/ | Implant | Cardiology | Daljit Singletary, | Remote Device | | 2019 | Monitor | | MD [address] | Interrogation | | | | | [place], | (Primary Dx); | | | | | [place] [address] | Pacemaker; | | | | | [phone] | Sinoatrial node | | | | | | dysfunction (HCC) | | | | | | with symptomatic | | | | | | bradycardia | +--------+ + + + + | 08/21/ | Implant | Cardiology | Daljit Singletary, | Remote Device | | 2019 | Monitor | | MD [address] | Interrogation | | | | | [place], | (Primary Dx); | | | | | [place] [address] | Pacemaker; | | | | | [phone] | Sinoatrial node | | | | | | dysfunction (HCC) | | | | | | with symptomatic | | | | | | bradycardia | +--------+ + + + + | 08/21/ | Implant | Cardiology | Shaista Singletarypawanotto, | Remote Device | | 2020 | Monitor | | MD [address] | Interrogation | | | | | [place], | (Primary Dx); | | | | | [place] [address] | Pacemaker; | | | | | [phone] | Sinoatrial node | | | | | | dysfunction (HCC) | | | | | | with symptomatic | | | | | | bradycardia | +--------+ + + + + | 08/21/ | Implant | Cardiology | AnshuDaljit carmona, | Remote Device | | 2019 | Monitor | | MD [address] | Interrogation | | | | | [place], | (Primary Dx); | | | | | [place] [address] | Pacemaker; | | | | | [phone] | Sinoatrial node | | | | | | dysfunction (HCC) | | | | | | with symptomatic | | | | | | bradycardia | +--------+ + + + + | 10/23/ | Procedure | Cardiology | | | | 2019 | visit | | | | +--------+ + + + + | 12/02/ | Office | Cardiology | Silvia, | | | 2020 | Visit | | PARISA Vernon [address] | | | | | | [place], | | | | | | [place] [address] | | | | | | [phone] | | | | | | | [...]
--- OUTSIDE RECORDS SUMMARY | ~2020-08-06 | XMS | Encounter Summary ---
Demographics + + + | Address | [address] | | | [place] [address] | + + + | Home Phone [...] Team Providers + +------+ + | Care Broom Worker Name | Role | Phone | + +------+ + PCP | Unavailable | + +------+ + Encounter Details +--------+ + + + + | Date | Type | Department | Care Team | Description | +--------+ + + + + | 06/17/ | Hospital | [facility] | | | | 2007 | Encounter | [facility] | | | | | | [facility]ENTER [address] | | | | | | [place] | | | | | | [address] | | | | | | [phone] | | | +--------+ + + + [...] | Monitor | | MD [address] | Interrogation | | | | | [place], | (Primary Dx); | | | | | [place] [address] | Pacemaker; | | | | | [phone] | Sinoatrial node | | | | | | dysfunction (HCC) | | | | | | with symptomatic | | | | | | bradycardia | +--------+ + + + + | 08/21/ | Implant | Cardiology | Daljit Singletary, | Remote Device | | 2019 | Monitor | | MD [address] | Interrogation | | | | | [place], | (Primary Dx); | | | | | [place] [address] | Pacemaker; | | | | | [phone] | Sinoatrial node | | | | | | dysfunction (HCC) | | | | | | with symptomatic | | | | | | bradycardia | +--------+ + + + + | 08/21/ | Implant | Cardiology | Daljit Singletary, | Remote Device | | 2019 | Monitor | | MD [address] | Interrogation | | | | | [place], | (Primary Dx); | | | | | [place] [address] | Pacemaker; | | | | | [phone] | Sinoatrial node | | | | | | dysfunction (HCC) | | | | | | with symptomatic | | | | | | bradycardia | +--------+ + + + + | 08/21/ | Implant | Cardiology | Daljit Singletary, | Remote Device | | 2019 | Monitor | | MD [address] | Interrogation | | | | | [place], | (Primary Dx); | | | | | [place] [address] | Pacemaker; | | | | | [phone] | Sinoatrial node | | | | | | dysfunction (HCC) | | | | | | with symptomatic | | | | | | bradycardia | +--------+ + + + + | 08/21/ | Implant | Cardiology | Daljit Singletary, | Remote Device | | 2019 | Monitor | | MD [address] | Interrogation | | | | | [place], | (Primary Dx); | | | | | [place] [address] | Pacemaker; | | | | | [phone] | Sinoatrial node | | | | [...] | | | | | | [place] [address] | | | | | | [phone] | | | | | | | | +--------+ + + + + documented as of this encounter Visit Diagnoses Not on filedocumented in this encounter"
--- OUTSIDE RECORDS SUMMARY | ~2020-08-06 | XMS | Encounter Summary ---
Demographics + + + | Address | [address] | | | [place] [address] | + + + | Home Phone [...] Team Providers + +------+ + | Care Doll Eye Setter Name | Role | Phone | + +------+ + | Michael Amanda DO | PCP | | + +------+ + Reason for Visit + + + | Reason | Comments | + + + | Follow-up | One month with [facility] 12/25/13 | + + + | [...] (Primary Dx); Chest | | | | [place], | [place], | pain; Coronary | | | | [place] [address] | [place] [address] | artery disease; | | | | [phone] | [phone] | Hyperlipidemia; | | | | | [...] last week to the emergency room at [facility] with a baljit st pain [...] needed for Chest pain. 25 tablet 12 [place]-3 Fatty Acids (SALMON OIL-1000 PO) CAPS, [...] attenuation cannot completely be ruled out. D. [facility] 12/25/13, shows noncritical coronary artery disease, mild ecstatic change to the le ft main artery, the coronary circulation is right dominant, normal left ventricular size, wa ll thickness and motion, preserved left ventricular systolic function, LVEF is 75%, normal s ystemic blood pressure, successful TR band application to the right radial artery. E. patient was seen on the emergency room at [place] on 01/26/2014, he was ruled out A [...] pain. He is in class II of [place] [employer] functional class. There are no [...] symptoms. He is in class II of [place] [employer] functional class. There are no [...] made to ensure accuracy; however, inadvertent computerized pen tender errors may be pre sent. Electronically signed by: PARISA Russell 01/29/2014 14:08 documented in this encounter Procedure Notes IRINA VAZQUEZ - 01/29/2014 12:00 AM PDTAssociated Order(s): [...] 2019 | Monitor | | [address] | Interrogation | | | | | [place], | (Primary Dx); | | | | | [place] [address] | Pacemaker; | | | | | [phone] | Sinoatrial node | | | | | | dysfunction (HCC) | | | | | | with symptomatic | | | | | | bradycardia | +--------+ + + + + | 08/21/ | Implant | Cardiology | Daljit Singletary, | Remote Device | | 2019 | Monitor | | MD [address] | Interrogation | | | | | [place], | (Primary Dx); | | | | | [place] [address] | Pacemaker; | | | | | [phone] | Sinoatrial node | | | | | | dysfunction (HCC) | | | | | | with symptomatic | | | | | | bradycardia | +--------+ + + + + | 08/21/ | Implant | Cardiology | Daljit Singletary, | Remote Device | | 2019 | Monitor | | MD [address] | Interrogation | | | | | [place], | (Primary Dx); | | | | | [place] [address] | Pacemaker; | | | | | [phone] | Sinoatrial node | | | | | | dysfunction (HCC) | | | | | | with symptomatic | | | | | | bradycardia | +--------+ + + + + | 08/21/ | Implant | Cardiology | SunshineDaljit villarreal, | Remote Device | | 2020 | Monitor | | MD [address] | Interrogation | | | | | [place], | (Primary Dx); | | | | | [place] [address] | Pacemaker; | | | | | [phone] | Sinoatrial node | | | | | | dysfunction (HCC) | | | | | | with symptomatic | | | | | | bradycardia | +--------+ + + + + | 08/21/ | Implant | Cardiology | Daljit Singletary, | Remote Device | | 2019 | Monitor | | MD [address] | Interrogation | | | | | [place], | (Primary Dx); | | | | | [place] [address] | Pacemaker; | | | | | [phone] | Sinoatrial node | | | | [...] | | | | | | [place] [address] | | | | | | [phone] | | | | | | | [...] of unspecified type of vessel, | | [place] or graft | + + | Hyperlipidemia [...]
--- OUTSIDE RECORDS SUMMARY | ~2020-08-06 | XMS | Encounter Summary ---
Demographics + + + | Address | [address] | | | [place] [address] | + + + | Home Phone [...] Providers + +------+ + | Care Tool Grinder Name | Role | Phone | [...] + | 07/30/ | Telephone | [facility] | Michael Amanda, | Results | | 2013 | | MEDICINE [facility] | DO [address] | | | | | [address] | [place] | | | | | [place], [place] | [address] | | | | | [address] | | | | | | [phone] | | | +--------+ + + + [...] | Monitor | | MD [address] | Interrogation | | | | | [facility] [place], | (Primary Dx); | | | | | [place] [address] | Pacemaker; | | | | | [phone] | Sinoatrial node | | | | | | dysfunction (HCC) | | | | | | with symptomatic | | | | | | bradycardia | +--------+ + + + + | 08/21/ | Implant | Cardiology | Daljit Singletary, | Remote Device | | 2019 | Monitor | | MD [address] | Interrogation | | | | | [facility], | (Primary Dx); | | | | | [place] [address] | Pacemaker; | | | | | [phone] | Sinoatrial node | | | | | | dysfunction (HCC) | | | | | | with symptomatic | | | | | | bradycardia | +--------+ + + + + | 08/21/ | Implant | Cardiology | Daljit Singletary, | Remote Device | | 2020 | Monitor | | MD [address] | Interrogation | | | | | [facility] [place], | (Primary Dx); | | | | | [place] [address] | Pacemaker; | | | | | [phone] | Sinoatrial node | | | | | | dysfunction (HCC) | | | | | | with symptomatic | | | | | | bradycardia | +--------+ + + + + | 08/21/ | Implant | Cardiology | Daljit Singletary, | Remote Device | | 2019 | Monitor | | MD [address] | Interrogation | | | | | [facility] [place], | (Primary Dx); | | | | | [place] [address] | Pacemaker; | | | | | [phone] | Sinoatrial node | | | | | | dysfunction (HCC) | | | | | | with symptomatic | | | | | | bradycardia | +--------+ + + + + | 08/21/ | Implant | Cardiology | Daljit Singletary, | Remote Device | | 2019 | Monitor | | MD [address] | Interrogation | | | | | [facility], | (Primary Dx); | | | | | [place] [address] | Pacemaker; | | | | | [phone] | Sinoatrial node | | | | [...] | | | | | | [place] [address] | | | | | | [phone] | | | | | | | | +--------+ + + + + documented as of this encounter Visit Diagnoses Not on filedocumented in this encounter"
--- OUTSIDE RECORDS SUMMARY | ~2020-08-06 | XMS | Encounter Summary ---
Demographics + + + | Address | [address] | | | [place] [address] | + + + | Home Phone [...] Providers + +------+ + | Care Parking Worker Name | Role | Phone | [...] | RN | | | | | [place], | | | | | | [place] [address] | | | | | | [phone] | | | +--------+ + + + [...] Interrogation | | | | | [place], | (Primary Dx); | | | | | [place] [address] | Pacemaker; | | | | | [phone] | Sinoatrial node | | | | | | dysfunction (HCC) | | | | | | with symptomatic | | | | | | bradycardia | +--------+ + + + + | 08/21/ | Implant | Cardiology | Daljit Singletary, | Remote Device | | 2019 | Monitor | | [address] | Interrogation | | | | | [place], | (Primary Dx); | | | | | [place] [address] | Pacemaker; | | | | | [phone] | Sinoatrial node | | | | | | dysfunction (HCC) | | | | | | with symptomatic | | | | | | bradycardia | +--------+ + + + + | 08/21/ | Implant | Cardiology | Daljit Singletary, | Remote Device | | 2020 | Monitor | | MD [address] | Interrogation | | | | | [place], | (Primary Dx); | | | | | [place] [address] | Pacemaker; | | | | | [phone] | Sinoatrial node | | | | | | dysfunction (HCC) | | | | | | with symptomatic | | | | | | bradycardia | +--------+ + + + + | 08/21/ | Implant | Cardiology | Daljit Singletary | Remote Device | | 2019 | Monitor | | MD [address] | Interrogation | | | | | [place], | (Primary Dx); | | | | | [place] [address] | Pacemaker; | | | | | [phone] | Sinoatrial node | | | | | | dysfunction (HCC) | | | | | | with symptomatic | | | | | | bradycardia | +--------+ + + + + | 08/21/ | Implant | Cardiology | Daljit Singletary, | Remote Device | | 2020 | Monitor | | MD [address] | Interrogation | | | | | [place], | (Primary Dx); | | | | | [place] [address] | Pacemaker; | | | | | [phone] | Sinoatrial node | | | | [...] | | | | | | [place] [address] | | | | | | [phone] | | | | | | | | +--------+ + + + + documented as of this encounter Visit Diagnoses Not on filedocumented in this encounter"
--- OUTSIDE RECORDS SUMMARY | ~2020-08-06 | XMS | Encounter Summary ---
Demographics + + + | Address | [address] | | | [place] [address] | + + + | Home Phone [...] Providers + +------+ + | Care Capacity Analyst Name | Role | Phone | [...] | | | | CENTER [address] | [address] | (Primary Dx) | | | | [place], [place] | [place], [place] | | | | | [address] | [address] | | | | | [phone] | | | +--------+ + + + [...] Hart MD - 06/21/2018Please follow-up with the cardio10X10 Room. Return for dizziness, chest pain, shortness of [...] + + + +---------+ + + | [place]-3 Fatty | CAPS, one capsule by | [...] | | 0 | | | | (REQUIP) 1 mg tablet [...] might be d ifferent from the original. [facility] Moe Sanchez Emergency Department Encounter Note [address] [place] [address] PCP:Kirk French MD x2500 eMERGENCY dEPARTMENT eNCOUnter [...] some twinges of chest pain last night. Haleigh rodarte's here for further evaluation. Pt states he [...] ABLATION Bilateral 04/03/2013 x3 APPENDECTOMY 2005 [facility] CARDIAC CATHERIZATION 12/25/13 Left COLONOSCOPY N/A 12/24/2017 Procedure: COLONOSCOPY; Surgeon: Emmanuel Daniel MD; Location: [facility] MEDICAL PROCEDURE UNIT HARDWARE REMOVAL KNEE SURGERY 2003 meniscus-right LAMINECTOMY 1991 L3-4 LUMBAR DISCECTOMY 1991 L3-4 LUMBAR FUSION 01/2011 6 spine fusions neck fusion 08/10/2012 [place] NECK SURGERY PACEMAKER PLACEMENT 06/14/09 SHOULDER SURGERY 03/22/13 SINUS SURGERY 1997 SPINAL FUSION STOMACH SURGERY UPPER GASTROINTESTINAL ENDOSCOPY N/A 12/24/2017 Procedure: EGD; Surgeon: Emmanuel Daniel MD; Location: [facility] MEDICAL PROCEDURE UNIT VASECTOMY CURRENT MEDICATIONS [...] patient that appointment is due in Cardiology [facility] Natural [...] DOSE, CALL 911Disp-100 tablet, R-3 , Normal [place]-3 Fatty Acids (SALMON OIL-1000 PO) CAPS, one [...] or Severe Contraindications. Consult references such as [employer] for further information. rOPINIrole (REQUIP) 1 mg tablet Take 1 tablet by mouth nightly.R-0, Historical Med UNABLE TO FIND Take 1 tablet by mouth Daily. MARINE-K7Onynuiawbg Med UNCODED MEDICATION Diagnosis: Obstructive Sleep Apnea ICD-9: 327.23 Length of Need: 99 MonthsDisp-1 Device, R-0, [id number] -Nasal Pillows, S3332-Cgqhy Mask, A 7030- Full Face Mask, N6198-Ntvaom Humidifier, Z9448-Ryshbb Tubing, G0204-Biyvyltr, H5933-Uy instrap A7039/A703 8-Filters valACYclovir (VALTREX) 1 g [...] deficits noted, no facial assymetry noted. Equal chocolate coater in all extremities EKG Interpretation Interpreted by emergency department physician Rhythm: Atrial paced. Rate: 70 Crawford: normal Ectopy: none Conduction: P wave normal, [...] further reassurance. He is encouraged follow-up with group fitness instructor. Follow-up Information PARISA Lomas In 1 day. Specialty: Nurse Practitioner Contact information: [place] [address] Discharge Medication List as of 06/21/2018 13:01 Discharge Instructions Please follow-up with the group fitness instructor. Return for dizziness, chest pain, shortness of br eath. FINAL IMPRESSION 1. Chest pain, unspecified type Acute Portions of this chart may have been created with makexyz voice recognition software. Occasi onal wrong-word or sound-alike substitutions may have occurred due to the inherent granger itations of voice recognition software. Please read the chart carefully and recognize, using context, where these substitutions have occurred Martell Hart MD 06/21/18 1304 inig, Jasbir Hermosillo RN - 06/21/2018 10:43 AM PDTIntermittent Chest [...] | Monitor | | MD [address] | Interrogation | | | | | [place], | (Primary Dx); | | | | | [place] [address] | Pacemaker; | | | | | [phone] | Sinoatrial node | | | | | | dysfunction ([facility]) | | | | | | with symptomatic | | | | | | bradycardia | +--------+ + + + + | 08/21/ | Implant | Cardiology | Sydni Singletary, | Remote Device | | 2019 | Monitor | | MD [address] | Interrogation | | | | | [place], | (Primary Dx); | | | | | [place] [address] | Pacemaker; | | | | | [phone] | Sinoatrial node | | | | | | dysfunction (HCC) | | | | | | with symptomatic | | | | | | bradycardia | +--------+ + + + + | 08/21/ | Implant | Cardiology | Sydni Singletary, | Remote Device | | 2019 | Monitor | | MD [address] | Interrogation | | | | | [place], | (Primary Dx); | | | | | [place] [address] | Pacemaker; | | | | | [phone] | Sinoatrial node | | | | | | dysfunction (HCC) | | | | | | with symptomatic | | | | | | bradycardia | +--------+ + + + + | 08/21/ | Implant | Cardiology | Sydni Singletary, | Remote Device | | 2019 | Monitor | | MD [address] | Interrogation | | | | | [place], | (Primary Dx); | | | | | [place] [address] | Pacemaker; | | | | | [phone] | Sinoatrial node | | | | | | dysfunction (HCC) | | | | | | with symptomatic | | | | | | bradycardia | +--------+ + + + + | 08/21/ | Implant | Cardiology | Sydni Singletary, | Remote Device | | 2019 | Monitor | | MD [address] | Interrogation | | | | | [facility], | (Primary Dx); | | | | | [place] [address] | Pacemaker; | | | | | [phone] | Sinoatrial node | | | | [...] | | | | | | [place] [address] | | | | | | [phone] | | | | | | | [...] | | | ON?07/ | | | 31/201 | | | 8 | | | 10:39? | | | HODGEN | | | , | | | FREDER | | | ICK | | | W?MRN: | | | | | | [id number] | | | [id number] | | | his | | | [...] | | | ent/60 | | | [id number] | | | -5586- | | | [...] | | | St. | | | [place] | | | y | | | [...] | | | ext. | | | [id number] | | | or go | | [...] | | | M.D. | | | Hat Forming Machine Operator | | | al | [...] | | | | | | [employer] | | | | | [...] [address] | [place] | [phone] | | [facility] | | [address] | | | - LABORATORY | | [...] [address] | [place] | [phone] | | [facility] | | [address] | | | - LABORATORY | | | | + + + + + Lipase (06/21/2018 11:44 AM PDT) + +-------+ + + + | Component | Value | Ref Range | Performed | Pathologist | | | | | At | Signature | + +-------+ + + + | Lipase | 31 | 0 - 60 U/L | YESS[facility] | | | | [...] [address] | [place] | [phone] | | [facility] | | [address] | | | - LABORATORY | | [...] 16 | 7 - 18 mg/dL | [facility] | | | | | | [facility] | | | | | | MEDICAL | | | | | | CENTER - | | | | | | LABORATORY | | + + + + + + | Creatinine | 0.82 | 0.60 - 1.30 | [facility] | | | | | mg/dL | [facility] | | | | | | MEDICAL | | | | | | CENTER - | | | | | | LABORATORY | | + + + + + + | eGFR, | >60Comment: GLOMERULAR | >=60 | [facility] | | | non- | FILTRATION | mL/min/1.73m2 | [facility] | | | [employer] | RATE,ESTIMATED | | MEDICAL | | | | mL/min/1.57i6Gtcu than | | CENTER - | | [...] ST. | [address] | [place] | [phone] | | [facility] | | [address] | | | - LABORATORY | | [...] ST. | [address] | [place], [place] | [phone] | | [facility] | | [address] | | | - LABORATORY | | | | + + + + + B Type Natriuretic Peptide (06/21/2018 11:44 AM PDT) + +-------+ + + + | Component | Value | Ref Range | Performed | Pathologist | | | | | At | Signature | + +-------+ + + + | BNP | 42 | <100 pg/mL | [facility] | | [address] | [place] | [phone] | | [facility] | | [address] | | | - LABORATORY | | [...] SYDNI | | | | | | ([id number]) on 06/22/2018 | | | | | [...]
--- OUTSIDE RECORDS SUMMARY | ~2020-08-06 | XMS | Encounter Summary ---
Demographics + + + | Address | [address] | | | [place] [address] | + + + | Home Phone [...] Providers + +------+ + | Care Labor Contract Analyst Name | Role | Phone | [...] 2016 | | CARDIOLOGY [address] | Janeen, CONDUCTOR/BRAKEMAN [address] | disease involving | | | | [place], | [place], | [place] coronary | | | | [place] [address] | [place] [address] | artery of [place] | | | | [phone] | [phone] | heart without angina | | | [...] Interrogation | | | | | [place], | (Primary Dx); | | | | | [place] [address] | Pacemaker; | | | | | [phone] | Sinoatrial node | | | | | | dysfunction ([facility]) | | | | | | with symptomatic | | | | | | bradycardia | +--------+ + + + + | 08/21/ | Implant | Cardiology | Daljit Singletary, | Remote Device | | 2019 | Monitor | | MD [address] | Interrogation | | | | | [place], | (Primary Dx); | | | | | [place] [address] | Pacemaker; | | | | | [phone] | Sinoatrial node | | | | | | dysfunction (HCC) | | | | | | with symptomatic | | | | | | bradycardia | +--------+ + + + + | 08/21/ | Implant | Cardiology | Daljit Singletary, | Remote Device | | 2019 | Monitor | | MD [address] | Interrogation | | | | | [place], | (Primary Dx); | | | | | [place] [address] | Pacemaker; | | | | | [phone] | Sinoatrial node | | | | | | dysfunction (HCC) | | | | | | with symptomatic | | | | | | bradycardia | +--------+ + + + + | 08/21/ | Implant | Cardiology | Daljit Singletary, | Remote Device | | 2019 | Monitor | | MD [address] | Interrogation | | | | | [place], | (Primary Dx); | | | | | [place] [address] | Pacemaker; | | | | | [phone] | Sinoatrial node | | | | | | dysfunction (HCC) | | | | | | with symptomatic | | | | | | bradycardia | +--------+ + + + + | 08/21/ | Implant | Cardiology | Daljit Singletary, | Remote Device | | 2019 | Monitor | | [address] [place] | Interrogation | | | | | [place], | (Primary Dx); | | | | | [place] [address] | Pacemaker; | | | | | [phone] | Sinoatrial node | | | | [...] | | | | | | [place], | | | | | | [place] [address] | | | | | | [phone] | | | | | | | [...] DALJIT | | | | | | ([id number]) on 06/23/2016 | | | | | [...] + + | Coronary artery disease involving [place] coronary artery of [place] heart without | | angina pectoris - Primary | + + | Essential hypertension with goal blood pressure less than 130/80 | + + | Remote Device Interrogation [...]
--- OUTSIDE RECORDS SUMMARY | ~2020-08-06 | XMS | Encounter Summary ---
Demographics + + + | Address | [address] | | | [place] [address] | + + + | Home Phone [...] Providers + +------+ + | Care Manager Web Application Name | Role | Phone | + [...] | | | | CENTER [address] | [place], [place] | insufficiency | | | | [place], [place] | [address] | | | | | [address] | | | | | | [phone] | | | +--------+ + + + [...] sent through Care Everywhere.PERIPHERAL KENYETTA Cr, MAMADOU ([employer] [place])documented in this encounter Medications at Time of [...] + + + +---------+ + + | [place]-3 Fatty | CAPS, one capsule by [...] | | | | | | | #[id number], exp 07/2016 | | | | | [...] Montoya MD - 08/23/2015 7:22 PM PDT [facility] Moe Sanchez Emergency Department Encounter Note [address] [place] [address] PCP:Kirk French MD [phone] CHIEF COMPLAINT: Leg swelling HPI Moe Sanchez is a 55 y.o. male who presents to the Emergency Department who has been having bilateral leg swelling this been ongoing since a recent trip to [facility]. He's not had chest pain or increasing shortness of breath. He had some increased pain in the leg s and noticed redness of both legs. He was seen at 2 different hospitals in [facility] to have the leg evaluated. He initially [...] on Lovenox for travel back to the [facility] to avoid the risk of air travel [...] | Monitor | | MD [address] | Interrogation | | | | | [place], | (Primary Dx); | | | | | [place] [address] | Pacemaker; | | | | | [phone] | Sinoatrial node | | | | | | dysfunction (HCC) | | | | | | with symptomatic | | | | | | bradycardia | +--------+ + + + + | 08/21/ | Implant | Cardiology | Daljit Singletary, | Remote Device | | 2019 | Monitor | | MD [address] | Interrogation | | | | | [place], | (Primary Dx); | | | | | [place] [address] | Pacemaker; | | | | | [phone] | Sinoatrial node | | | | | | dysfunction (HCC) | | | | | | with symptomatic | | | | | | bradycardia | +--------+ + + + + | 08/21/ | Implant | Cardiology | Daljit Singletary, | Remote Device | | 2019 | Monitor | | MD [address] | Interrogation | | | | | [place], | (Primary Dx); | | | | | [place] [address] | Pacemaker; | | | | | [phone] | Sinoatrial node | | | | | | dysfunction (HCC) | | | | | | with symptomatic | | | | | | bradycardia | +--------+ + + + + | 08/21/ | Implant | Cardiology | Daljit Singletary, | Remote Device | | 2019 | Monitor | | MD [address] | Interrogation | | | | | [place], | (Primary Dx); | | | | | [place] [address] | Pacemaker; | | | | | [phone] | Sinoatrial node | | | | | | dysfunction (HCC) | | | | | | with symptomatic | | | | | | bradycardia | +--------+ + + + + | 08/21/ | Implant | Cardiology | Daljit Singletary, | Remote Device | | 2019 | Monitor | | MD [address] | Interrogation | | | | | [place], | (Primary Dx); | | | | | [place] [address] | Pacemaker; | | | | | [phone] | Sinoatrial node | | | | [...] | | | | | | [place], | | | | | | [place] [address] | | | | | | [phone] | | | | | | | | +--------+ + + + + documented as of this encounter Visit Diagnoses + + | Diagnosis | + + | Peripheral edema - Primary Edema | + + | Venous insufficiency Unspecified venous (peripheral) insufficiency | + + | Remote Device Interrogation [...]
--- OUTSIDE RECORDS SUMMARY | ~2020-08-06 | XMS | Encounter Summary ---
Demographics + + + | Address | [address] [place] [address] [address] | | | [place] [address] | + + + | Home Phone [...] [place] | | | | | [address] | | + + + + + Care Team Providers + +------+ + | Care Burglar Alarm Assembler Name | Role | Phone | [...] | | 2020 | | Center at [facility] [address] | [facility] | (capsule referral) | | | | [address] [facility] | [address] [place], [place] | | | | | for Health and | [address] | | | | | Healing, [facility] [address] | | | | | | [place], [place] | | | | | | [address] | | | | | | [phone] | | | +--------+ + + + [...] y.o. M referred by Bridgette Rios MD [facility] for PillCam small bowel vi shraddha capsule endoscopy Sx: diarrhea, abdominal pain, rectal bleeding Relevant previous testing/imaging: same day colo Capsule mortgage loan reviewer Time frame requested for capsule? Next 4 weeks Does provider want different prep? Yes - will do prep for same day colonoscopy History of constipation or gastroparesis? no (consider endoscopic placement for hx gastroparesis, and/or enhanced bowel prep for constip ation) Patency capsule needed? no Implanted device? yes (ALL implanted devices are contraindicated with PillCam) If yes must document that [facility] allows concomitant use of pacer/defib per evidence [...]
--- OUTSIDE RECORDS SUMMARY | ~2020-08-06 | XMS | Encounter Summary ---
Demographics + + + | Address | [address] | | | [place] [address] | + + + | Home Phone [...] Providers + +------+ + | Care Credit Union Examiner Name | Role | Phone | + +------+ + | Kirk French MD | PCP | | + +------+ + Encounter Details +--------+---------+ + + + | Date | Type | Department | Care Team | Description | +--------+---------+ + + + | 01/25/ | Surgery | [facility] | Daljit Singletary, | CV LHC | | 2019 | | MED CTR CV INTRA OP | MD [address] | | | | | [address] | [address] [place], | | | | | [place] | [place] [address] | | | | | [address] | [phone] | | | | | [phone] | | | +--------+---------+ + + + [...] as a collagen plugis used on the [facility] site to close the site, you [...] by your healthcare provider Date Last Reviewed: 09/22/[id number] [employer]. [address] [place] [address]. All righ ts reserved. This information is [...] + + + +---------+ + + | [place]-3 Fatty | CAPS, one capsule by | [...] 1960: AGE: 58 y.o. PRIMARY CARE: Kirk Frecnh MD OUTPATIENT FOLLOW UP VISIT Date of Service: 01/11/2019 HISTORY OF PRESENT ILLNESS: Moe Sanchez is a 58 y.o. male with a history of non-critical coronary artery d isease involving [place] coronary artery of [place] heart without angina pectoris, essential h [...] so we will continue with out to kenisha swetha at this point. MEDICAL, SURGICAL, AND PERSONAL [...] Preventative health care Coronary artery disease involving [place] coronary artery of [place] heart without angina pectoris Cannabis abuse, [...] 3RD DOSE, CALL 911 100 tablet 3 [place]-3 Fatty Acids (SALMON OIL-1000 PO) CAPS, one [...] was found Confirmed by HIREN WINKLER, ANGELA ([id number]) on 01/03/2019 8:10:39 PM LAB RESULTS reviewed during visit today primarily from [facility]: LIPID Lab Results Component Value [...] the HPI. RESULTS- I reviewed reports from [facility]: Xr Chest Ap Portable Result [...] ASSESSMENT: 1. Non-critical Coronary artery disease involving [place] coronary artery of [place] heart [place] [facility] angina pectoris: A. Normal [...] Symptoms with moderate exertion of t he [place] [employer] functional class. Heart failure stage [...] go back in 3 days t o [place] for an attempt of ablation under general [...] he has any further problems Christine Clemente Convertible Top Installer am acting as a scribe on behalf of, and in the pres ence of PARISA Lomas. - Christine Rodriguez, Convertible Top Installer 01/11/2019 13:46 I, PARISA Lomas, personally performed the services described in this documentati on, as scribed in my presence and it is both accurate and complete. -PARISA Lomas 01/11/2019 Portions of this chart may have been created with [employer] voice recognition software. Occasi onal wrong-word or [...] Interrogation | | | | | [place], | (Primary Dx); | | | | | [place] [address] | Pacemaker; | | | | | [phone] | Sinoatrial node | | | | | | dysfunction (HCC) | | | | | | with symptomatic | | | | | | bradycardia | +--------+ + + + + | 08/21/ | Implant | Cardiology | Daljit Singletary, | Remote Device | | 2019 | Monitor | | MD [address] | Interrogation | | | | | [place], | (Primary Dx); | | | | | [place] [address] | Pacemaker; | | | | | [phone] | Sinoatrial node | | | | | | dysfunction (HCC) | | | | | | with symptomatic | | | | | | bradycardia | +--------+ + + + + | 08/21/ | Implant | Cardiology | Daljit Singletary, | Remote Device | | 2019 | Monitor | | MD [address] | Interrogation | | | | | [place], | (Primary Dx); | | | | | [place] [address] | Pacemaker; | | | | | [phone] | Sinoatrial node | | | | | | dysfunction (HCC) | | | | | | with symptomatic | | | | | | bradycardia | +--------+ + + + + | 08/21/ | Implant | Cardiology | Daljit Singletary, | Remote Device | | 2019 | Monitor | | MD [address] | Interrogation | | | | | [place], | (Primary Dx); | | | | | [place] [address] | Pacemaker; | | | | | [phone] | Sinoatrial node | | | | | | dysfunction (HCC) | | | | | | with symptomatic | | | | | | bradycardia | +--------+ + + + + | 08/21/ | Implant | Cardiology | Daljit Singletary, | Remote Device | | 2019 | Monitor | | MD [address] | Interrogation | | | | | [place], | (Primary Dx); | | | | | [place] [address] | Pacemaker; | | | | | [phone] | Sinoatrial node | | | | [...] [address] | | | | | | [place], | | | | | | [place] [address] | | | | | | [phone] | | | | | | | [...] (1960) MEDICAL RECORD NUMBER: | | | [id number] OF PROCEDURE: 01/25/2019 PLUCK TRIMMER: Daljit | | | MD Gemini PROCEDURES [...] Sanchez, (1960) | | OF PROCEDURE: 01/25/2019PRIMARY DISPATCHER SHIP PILOT: Daljit Singletary MD PROCEDURES | | PERFORMED:Coronary [...] or lesion | | type, unspecified whether [place] or transplanted heart | + + | Remote Device Interrogation [...] | | | | | PRN, Starting Wed 6/19 at | | AM PST | | [...]
--- OUTSIDE RECORDS SUMMARY | ~2020-08-06 | XMS | Encounter Summary ---
Demographics + + + | Address | [address] | | | [place] [address] | + + + | Home Phone [...] Providers + +------+ + | Care Event Organizer Name | Role | Phone | + +------+ + PCP | Unavailable | + +------+ + Encounter Details +--------+ + + + + | Date | Type | Department | Care Team | Description | +--------+ + + + + | 06/25/ | [facility] | [facility] | Daljit Singletary, | | | 2008 | Encounter | MED CTR XRAY [address] | MD [address] [place] | | | | | [place] | [address] [place], | | | | | [place], [place] [address] | [place] [address] | | | | | [phone] | [phone] | | | | | | | [...] 2019 | Monitor | | [address] | Interrogation | | | | | [place], | (Primary Dx); | | | | | [place] [address] | Pacemaker; | | | | | [phone] | Sinoatrial node | | | | | | dysfunction (HCC) | | | | | | with symptomatic | | | | | | bradycardia | +--------+ + + + + | 08/21/ | Implant | Cardiology | Daljit Singletary, | Remote Device | | 2019 | Monitor | | MD [address] [address] | Interrogation | | | | | [place], | (Primary Dx); | | | | | [place] [address] | Pacemaker; | | | | | [phone] | Sinoatrial node | | | | | | dysfunction (HCC) | | | | | | with symptomatic | | | | | | bradycardia | +--------+ + + + + | 08/21/ | Implant | Cardiology | Daljit Singletary, | Remote Device | | 2020 | Monitor | | MD [address] [address] | Interrogation | | | | | [place], | (Primary Dx); | | | | | [place] [address] | Pacemaker; | | | | | [phone] | Sinoatrial node | | | | | | dysfunction (HCC) | | | | | | with symptomatic | | | | | | bradycardia | +--------+ + + + + | 08/21/ | Implant | Cardiology | Daljit Singletary | Remote Device | | 2019 | Monitor | | MD [address] | Interrogation | | | | | [place], | (Primary Dx); | | | | | [place] [address] | Pacemaker; | | | | | [phone] | Sinoatrial node | | | | | | dysfunction (HCC) | | | | | | with symptomatic | | | | | | bradycardia | +--------+ + + + + | 08/21/ | Implant | Cardiology | Daljit Singletary, | Remote Device | | 2020 | Monitor | | MD [address] [place] | Interrogation | | | | | [place], | (Primary Dx); | | | | | [place] [address] | Pacemaker; | | | | | [phone] | Sinoatrial node | | | | [...] | | | | | | [place] [address] | | | | | | [phone] | | | | | | | | +--------+ + + + + documented as of this encounter Visit Diagnoses Not on filedocumented in this encounter"
--- OUTSIDE RECORDS SUMMARY | ~2020-08-06 | XMS | Encounter Summary ---
Demographics + + + | Address | [address] | | | [place] [address] | + + + | Home Phone [...] + + | 04/07/ | Office | [facility] | Matthew Uriarte | Left ureteral | | 2019 | Visit | [address] | MD Tawanna [address] | calculus (Primary | | | | [place] | [address] | Dx); Kidney stones | | | | [address] | [place] | | | | | [phone] | [address] | | | | | | | | | | | | (Fax) [...] April 13, 2019 at 7:45 AM at [facility]. Please report to the [facility] no later than 6:15 AM. REMEMBER: NOTHING TO EAT OR DRINK AFTER MIDNIGHT April 12, 2019. NO FISH OIL, ASPIRIN OR ASPIRIN PRODUCTS ONE WEEK PRIOR TO SURGERY. Tylenol and Advil are OK. You will need to get the following testing done prior to surgery: CBC, BMP YOU WILL NEED TO BRING A SHAFT REPAIRER WITH YOU THE DAY OF SURGERY. Call us at [phone] with any questions. [] Pain management booklet [...] treated. 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 Pacemaker; [employer] Peptic ulcer disease Premature ventricular contraction Preventative [...] ABLATION Bilateral 04/03/2013 x3 Laser APPENDECTOMY 2004 [facility] CARDIAC CATHERIZATION 12/25/13 Left CARDIAC CATHERIZATION N/A 01/25/2019 Procedure: CV LHC; Surgeon: Daljit Singletary MD; Location: [facility] CV LAB CARDIAC CATHERIZATION N/A 01/25/2019 Procedure: CV Cor Angio; Surgeon: Daljit Singletary MD; Location: [facility] CV LAB COLONOSCOPY N/A 12/24/2017 Procedure: COLONOSCOPY; Surgeon: Emmanuel Daniel MD; Location: [facility] MEDICAL PROCEDURE UNIT COLONOSCOPY N/A 01/05/2019 Procedure: COLONOSCOPY; Surgeon: Emmanuel Daniel MD; Location: [facility] MEDICAL PROCEDURE UNIT EGD 12/24/2017 HARDWARE REMOVAL KNEE ARTHROSCOPY Bilateral KNEE SURGERY 2004 meniscus-right LAMINECTOMY 1991 L3-4 LUMBAR DISCECTOMY 1992 L3-4 LUMBAR FUSION 01/2011 6 spine fusions NECK SURGERY NECK SURGERY 08/10/2012 Fusion. [place] PACEMAKER PLACEMENT 06/14/2009 [employer] ROTATOR CUFF REPAIR Bilateral 03/22/2013 SINUS SURGERY 1998 SPINAL FUSION STOMACH SURGERY UPPER GASTROINTESTINAL ENDOSCOPY N/A 12/24/2017 Procedure: EGD; Surgeon: Emmanuel Daniel MD; Location: [facility] MEDICAL PROCEDURE UNIT UPPER GASTROINTESTINAL ENDOSCOPY N/A 01/05/2019 Procedure: EGD; Surgeon: Emmanuel Daniel MD; Location: [facility] MEDICAL PROCEDURE UNIT VASECTOMY Family History: [...] 911, Disp: 100 ta blet, Rfl: 3 [place]croft-3 Fatty Acids (SALMON OIL-1000 PO), CAPS, one [...] have not thoroughly proofread this note, and fish hatchery manager errors are very likely to occur. [...] Interrogation | | | | | [place], | (Primary Dx); | | | | | [place] [address] | Pacemaker; | | | | | [phone] | Sinoatrial node | | | | | | dysfunction (HCC) | | | | | | with symptomatic | | | | | | bradycardia | +--------+ + + + + | 08/21/ | Implant | Cardiology | Daljit Singletary, | Remote Device | | 2019 | Monitor | | MD [address]iqu[address] | Interrogation | | | | | [place], | (Primary Dx); | | | | | [place] [address] | Pacemaker; | | | | | [phone] | Sinoatrial node | | | | | | dysfunction (HCC) | | | | | | with symptomatic | | | | | | bradycardia | +--------+ + + + + | 08/21/ | Implant | Cardiology | Daljit Singletary, | Remote Device | | 2019 | Monitor | | MD [address] | Interrogation | | | | | [place], | (Primary Dx); | | | | | [place] [address] | Pacemaker; | | | | | [phone] | Sinoatrial node | | | | | | dysfunction (HCC) | | | | | | with symptomatic | | | | | | bradycardia | +--------+ + + + + | 08/21/ | Implant | Cardiology | Daljit Singletary, | Remote Device | | 2019 | Monitor | | MD [address] | Interrogation | | | | | [place], | (Primary Dx); | | | | | [place] [address] | Pacemaker; | | | | | [phone] | Sinoatrial node | | | | | | dysfunction (HCC) | | | | | | with symptomatic | | | | | | bradycardia | +--------+ + + + + | 08/21/ | Implant | Cardiology | SunshinecherelleDaljit, | Remote Device | | 2019 | Monitor | | [address] | Interrogation | | | | | [place], | (Primary Dx); | | | | | [place] [address] | Pacemaker; | | | | | [phone] | Sinoatrial node | | | | [...] W | | | | | | [place], | | | | | | [place] [address] | | | | | | [phone] | | | | | | | [...]
--- OUTSIDE RECORDS SUMMARY | ~2020-08-06 | XMS | Encounter Summary ---
Demographics + + + | Address | [address] | | | [place] [address] | + + + | Home Phone [...] Providers + +------+ + | Care Body Team Member Name | Role | Phone [...] | CARDIOLOGY [address] | Interrogation | | | | [place], | [place], | (Primary Dx); | | | | [place] [address] | [place] [address] | Presence of | | | | [phone] | [phone] | permanent cardiac | | | | [...] Paceart documentation and remote PDF scanned into Websense for remote interrogation re sults. Data collected [...] | | | | | [place], | (Primary Dx); | | | | | [place] [address] | Pacemaker; | | | | | [phone] | Sinoatrial node | | | | | | dysfunction (HCC) | | | | | | with symptomatic | | | | | | bradycardia | +--------+ + + + + | 08/21/ | Implant | Cardiology | Daljit Singletary, | Remote Device | | 2019 | Monitor | | MD [address] | Interrogation | | | | | [place], | (Primary Dx); | | | | | [place] [address] | Pacemaker; | | | | | [phone] | Sinoatrial node | | | | | | dysfunction (HCC) | | | | | | with symptomatic | | | | | | bradycardia | +--------+ + + + + | 08/21/ | Implant | Cardiology | Daljit Singletary, | Remote Device | | 2019 | Monitor | | MD [address] | Interrogation | | | | | [place], | (Primary Dx); | | | | | [place] [address] | Pacemaker; | | | | | [phone] | Sinoatrial node | | | | | | dysfunction (HCC) | | | | | | with symptomatic | | | | | | bradycardia | +--------+ + + + + | 08/21/ | Implant | Cardiology | Daljit Singletary, | Remote Device | | 2019 | Monitor | | MD [address] | Interrogation | | | | | [place], | (Primary Dx); | | | | | [place] [address] | Pacemaker; | | | | | [phone] | Sinoatrial node | | | | | | dysfunction (HCC) | | | | | | with symptomatic | | | | | | bradycardia | +--------+ + + + + | 08/21/ | Implant | Cardiology | Daljit Singletary, | Remote Device | | 2019 | Monitor | | [address] [place] | Interrogation | | | | | [place], | (Primary Dx); | | | | | [place] [address] | Pacemaker; | | | | | [phone] | Sinoatrial node | | | | [...] W | | | | | | [place], | | | | | | [place] [address] | | | | | | [phone] | | | | | | | [...] Paceart documentation and remote PDF scanned into Websense | | | for remote interrogation results. [...]
--- OUTSIDE RECORDS SUMMARY | ~2020-08-06 | XMS | Encounter Summary ---
Demographics + + + | Address | [address] | | | [place] [address] | + + + | Home Phone [...] Providers + +------+ + | Care Offset Assistant Press Operator Name | Role | Phone [...] | 06/08/ | Refill | [facility] | Kirk French | Medication Refill | | 2020 | | GASTROENTEROLOGY | MD Brea [address] | | | | | [address] [facility] | [address] | | | | | [address] [place], [place] | [place] [address] | | | | | [address] | [phone] | | | | | [phone] | | | +--------+--------+ + + + [...] Miscellaneous Notes Telephone Encounter - Geri Bear Hemodialysis Rn - 06/10/2020 9:02 AM PDTrefillElec tronically signed by Geri Bear Hemodialysis Rn at 06/10/2020 9:02 AM PDTdocujean pierre villarreal this encounter Plan of Treatment +--------+ + + + + | Date | Type | Specialty | Care Team | Description | +--------+ + + + + | 08/21/ | Implant | Cardiology | Wongsuwan, Suwong, | Remote Device | | 2019 | Monitor | | MD [address] | Interrogation | | | | | [place], | (Primary Dx); | | | | | [place] [address] | Pacemaker; | | | | | [phone] | Sinoatrial node | | | | | | dysfunction (HCC) | | | | | | with symptomatic | | | | | | bradycardia | +--------+ + + + + | 08/21/ | Implant | Cardiology | Daljit Singletary, | Remote Device | | 2019 | Monitor | | MD [address] | Interrogation | | | | | [place], | (Primary Dx); | | | | | [place] [address] | Pacemaker; | | | | | [phone] | Sinoatrial node | | | | | | dysfunction (HCC) | | | | | | with symptomatic | | | | | | bradycardia | +--------+ + + + + | 08/21/ | Implant | Cardiology | Daljit Singletary, | Remote Device | | 2020 | Monitor | | MD [address] | Interrogation | | | | | [place], | (Primary Dx); | | | | | [place] [address] | Pacemaker; | | | | | [phone] | Sinoatrial node | | | | | | dysfunction (HCC) | | | | | | with symptomatic | | | | | | bradycardia | +--------+ + + + + | 08/21/ | Implant | Cardiology | Daljit Singletary, | Remote Device | | 2019 | Monitor | | MD [address] | Interrogation | | | | | [place], | (Primary Dx); | | | | | [place] [address] | Pacemaker; | | | | | [phone] | Sinoatrial node | | | | | | dysfunction (HCC) | | | | | | with symptomatic | | | | | | bradycardia | +--------+ + + + + | 08/21/ | Implant | Cardiology | Daljit Singletary, | Remote Device | | 2019 | Monitor | | MD [address] | Interrogation | | | | | [place], | (Primary Dx); | | | | | [place] [address] | Pacemaker; | | | | | [phone] | Sinoatrial node | | | | [...] | | | | | | [place] [address] | | | | | | [phone] | | | | | | | | +--------+ + + + + documented as of this encounter Visit Diagnoses Not on filedocumented in this encounter"
--- OUTSIDE RECORDS SUMMARY | ~2020-08-06 | XMS | Encounter Summary ---
Demographics + + + | Address | [address] [place] [address] [address] LO[address] | | | [place] [address] | + + + | Home Phone [...] [place] | | | | | [address] | | + + + + + Care Team Providers + +------+ + | Care Production Control Expert Name | Role | Phone | [...] | | 2020 | | Center at [facility] [address] | MD [address] | Review | | | | [address] | [place], [place] | | | | | for Health and | [address] | | | | | [facility] 2 | [phone] | | | | | [place], [place] | | | | | | [address] | | | | | | [phone] | | | +--------+ + + + [...]
--- OUTSIDE RECORDS SUMMARY | ~2020-08-06 | XMS | Encounter Summary ---
Demographics + + + | Address | [address] | | | [place] [address] | + + + | Home Phone [...] Team Providers + +------+ + | Care Dynamics Ax Developer Name | Role | Phone | + +------+ + PCP | Unavailable | + +------+ + Encounter Details +--------+ + + + + | Date | Type | Department | Care Team | Description | +--------+ + + + + | 11/14/ | [facility] | [facility] | William Hirsch | | | 1999 | Encounter | MED CTR EMERGENCY | MD Cristobal [address] | | | | | CENTER [address] | [place] | | | | | [place] | [place] [address] | | | | | [address] | [phone] | | | | | [phone] | | | +--------+ + + + [...] Interrogation | | | | | [place], | (Primary Dx); | | | | | [place] [address] | Pacemaker; | | | | | [phone] | Sinoatrial node | | | | | | dysfunction (HCC) | | | | | | with symptomatic | | | | | | bradycardia | +--------+ + + + + | 08/21/ | Implant | Cardiology | Daljit Singletary, | Remote Device | | 2019 | Monitor | | MD [address] | Interrogation | | | | | [place], | (Primary Dx); | | | | | [place] [address] | Pacemaker; | | | | | [phone] | Sinoatrial node | | | | | | dysfunction (HCC) | | | | | | with symptomatic | | | | | | bradycardia | +--------+ + + + + | 08/21/ | Implant | Cardiology | Daljit Singletary, | Remote Device | | 2019 | Monitor | | MD [address] | Interrogation | | | | | [place], | (Primary Dx); | | | | | [place] [address] | Pacemaker; | | | | | [phone] | Sinoatrial node | | | | | | dysfunction (HCC) | | | | | | with symptomatic | | | | | | bradycardia | +--------+ + + + + | 08/21/ | Implant | Cardiology | Daljit Singletary, | Remote Device | | 2019 | Monitor | | MD [address] | Interrogation | | | | | [place], | (Primary Dx); | | | | | [place] [address] | Pacemaker; | | | | | [phone] | Sinoatrial node | | | | | | dysfunction (HCC) | | | | | | with symptomatic | | | | | | bradycardia | +--------+ + + + + | 08/21/ | Implant | Cardiology | Daljit Singletary, | Remote Device | | 2019 | Monitor | | MD [address] | Interrogation | | | | | [place], | (Primary Dx); | | | | | [place] [address] | Pacemaker; | | | | | [phone] | Sinoatrial node | | | | [...] | | | | | | [place] [address] | | | | | | [phone] | | | | | | | | +--------+ + + + + documented as of this encounter Visit Diagnoses Not on filedocumented in this encounter"
--- OUTSIDE RECORDS SUMMARY | ~2020-08-06 | XMS | Encounter Summary ---
Demographics + + + | Address | [address] | | | [place] [address] | + + + | Home Phone [...] Team Providers + +------+ + | Care Tenter Frame Operator Name | Role | Phone | [...] + + | 01/22/ | Refill | [facility] | Kirk French | Medication Refill | | 2019 | | [facility] | MD Brea [address] | | | | | [facility] [address] | [address] | | | | | [address] | [place] [address] | | | | | [place], [place] | [phone] | | | | | [address] | | | | | | [phone] | | | +--------+--------+ + + + [...] Miscellaneous Notes Telephone Encounter - Geri Bear Ruling Machine Feeder - 01/23/2020 12:40 PM PSTRefill Shanell ctronically signed by Geri Bear Ruling Machine Feeder at 01/23/2020 12:40 PM PSTdocumented in this encounter Plan of Treatment +--------+ + + + + | Date | Type | Specialty | Care Team | Description | +--------+ + + + + | 08/21/ | Implant | Cardiology | Daljit Singletary, | Remote Device | | 2019 | Monitor | | MD [address] | Interrogation | | | | | [place], | (Primary Dx); | | | | | [place] [address] | Pacemaker; | | | | | [phone] | Sinoatrial node | | | | | | dysfunction (HCC) | | | | | | with symptomatic | | | | | | bradycardia | +--------+ + + + + | 08/21/ | Implant | Cardiology | Daljit Singletary, | Remote Device | | 2019 | Monitor | | MD [address] | Interrogation | | | | | [place], | (Primary Dx); | | | | | [place] [address] | Pacemaker; | | | | | [phone] | Sinoatrial node | | | | | | dysfunction (HCC) | | | | | | with symptomatic | | | | | | bradycardia | +--------+ + + + + | 08/21/ | Implant | Cardiology | Daljit Singletary, | Remote Device | | 2020 | Monitor | | MD [address] | Interrogation | | | | | [place], | (Primary Dx); | | | | | [place] [address] | Pacemaker; | | | | | [phone] | Sinoatrial node | | | | | | dysfunction (HCC) | | | | | | with symptomatic | | | | | | bradycardia | +--------+ + + + + | 08/21/ | Implant | Cardiology | Daljit Singletary, | Remote Device | | 2019 | Monitor | | MD [address] | Interrogation | | | | | [place], | (Primary Dx); | | | | | [place] [address] | Pacemaker; | | | | | [phone] | Sinoatrial node | | | | | | dysfunction (HCC) | | | | | | with symptomatic | | | | | | bradycardia | +--------+ + + + + | 08/21/ | Implant | Cardiology | Daljit Singletary, | Remote Device | | 2019 | Monitor | | MD [address] | Interrogation | | | | | [place], | (Primary Dx); | | | | | [place] [address] | Pacemaker; | | | | | [phone] | Sinoatrial node | | | | [...] | | | | | | [place] [address] | | | | | | [phone] | | | | | | | | +--------+ + + + + documented as of this encounter Visit Diagnoses Not on filedocumented in this encounter"
--- OUTSIDE RECORDS SUMMARY | ~2020-08-06 | XMS | Encounter Summary ---
Demographics + + + | Address | [address] [place] [address] [address] | | | [place] [address] | + + + | Home Phone [...] [place] | | | | | [address] | | + + + + + Care Team Providers + +------+ + | Care Phd Intern Name | Role | Phone | [...] | 2019 | | Center at [facility] [address]85 | MD [address] | | | | | [address] | [place], [place] | | | | | for Health and | [address] | | | | | [facility] 2 | [phone] | | | | | [place], [place] | | | | | | [address] | | | | | | [phone] | | | +--------+ + + + [...] got these from his GI doctor in [place] who referred him to us. I asked [...] coli. Called in orders to staff at [facility], unfortunately Amilcar had already left. They also aske d that I fax orders to them, orders faxed. [facility] fax#[phone] signed by Allyson Diehl RN at 10/03/2019 2:14 PM PSTTelephone Encounter - Yancy Alexandera - 10/03/2019 1:42 PM PSTPerson calling? (Pham ent, spouse, caregiver, medical office, etc): Ines from [facility] lab Reason for call: needing verbal orders for Pt labs that they never received. Pt sitting at lab Provider / Specialty: bonnie/ wanda henning Call back number confirmed? :yes Best call back number [phone] Caller would like a call back to [...]
--- OUTSIDE RECORDS SUMMARY | ~2020-08-06 | XMS | Encounter Summary ---
Demographics + + + | Address | [address] | | | [place] [address] | + + + | Home Phone [...] Team Providers + +------+ + | Care Wrapper Layer Name | Role | Phone | + +------+ + | Kirk French MD | PCP | | + +------+ + Encounter Details +--------+ + + + + | Date | Type | Department | Care Team | Description | +--------+ + + + + | 01/21/ | Anesthesia | [facility] | Jarett Barakat | | | 2020 | Event | MED CTR MP INTRA OP | PMD [address] | | | | | [address] | [address] [place], [place] | | | | | [place], [place] | [address] | | | | | [address] | [phone] | | | | | [phone] | | | +--------+ + + + [...] +--------+ + +---------+ | Nephro | 04/13/19; 939; left flank; other | 04/13/1940 by | | | stomy | (see [...] EVALUATION Moe Sanchez 59 y.o. 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, | (Primary Dx); | | | | | [place] [address] | Pacemaker; | | | | | [phone] | Sinoatrial node | | | | | | dysfunction (HCC) | | | | | | with symptomatic | | | | | | bradycardia | +--------+ + + + + | 08/21/ | Implant | Cardiology | Daljit Singletary, | Remote Device | | 2019 | Monitor | | MD [address] | Interrogation | | | | | [facility], | (Primary Dx); | | | | | [place] [address] | Pacemaker; | | | | | [phone] | Sinoatrial node | | | | | | dysfunction (HCC) | | | | | | with symptomatic | | | | | | bradycardia | +--------+ + + + + | 08/21/ | Implant | Cardiology | Daljit Singletary, | Remote Device | | 2019 | Monitor | | MD [address] | Interrogation | | | | | [place], | (Primary Dx); | | | | | [place] [address] | Pacemaker; | | | | | [phone] | Sinoatrial node | | | | | | dysfunction (HCC) | | | | | | with symptomatic | | | | | | bradycardia | +--------+ + + + + | 08/21/ | Implant | Cardiology | Daljit Singletary, | Remote Device | | 2019 | Monitor | | MD [address] | Interrogation | | | | | [place], | (Primary Dx); | | | | | [place] [address] | Pacemaker; | | | | | [phone] | Sinoatrial node | | | | [...] | | | | | | [place] [address] | | | | | | [phone] | | | | | | | | +--------+ + + + + documented as of this encounter Visit Diagnoses Not on filedocumented in this encounter
--- OUTSIDE RECORDS SUMMARY | ~2020-08-06 | XMS | Encounter Summary ---
Demographics + + + | Address | [address] | | | [place] [address] | + + + | Home Phone [...] Providers + +------+ + | Care Group Sales Manager Name | Role | Phone [...] + + | 06/04/ | Hospital | [facility] | Sariah, | Cervical spinal | | 2016 | Encounter | MED CTR XRAY [address] | Marietta Mason, STATE MANAGER [address] | stenosis | | | | [place] | [id number] | | | | | [place] [address] | [place] [address] | | | | | [phone] | [phone] | | | | | | | [...] | Monitor | | MD [address] [place] | Interrogation | | | | | [place], | (Primary Dx); | | | | | [place] [address] | Pacemaker; | | | | | [phone] | Sinoatrial node | | | | | | dysfunction (HCC) | | | | | | with symptomatic | | | | | | bradycardia | +--------+ + + + + | 08/21/ | Implant | Cardiology | Daljit Singletary, | Remote Device | | 2019 | Monitor | | MD [address] [place] | Interrogation | | | | | [place], | (Primary Dx); | | | | | [place] [address] | Pacemaker; | | | | | [phone] | Sinoatrial node | | | | | | dysfunction (HCC) | | | | | | with symptomatic | | | | | | bradycardia | +--------+ + + + + | 08/21/ | Implant | Cardiology | Daljit Singletary, | Remote Device | | 2020 | Monitor | | MD [address] [place] | Interrogation | | | | | [place], | (Primary Dx); | | | | | [place] [address] | Pacemaker; | | | | | [phone] | Sinoatrial node | | | | | | dysfunction (HCC) | | | | | | with symptomatic | | | | | | bradycardia | +--------+ + + + + | 08/21/ | Implant | Cardiology | Daljit Singletary, | Remote Device | | 2019 | Monitor | | MD [address] [place] | Interrogation | | | | | [place], | (Primary Dx); | | | | | [place] [address] | Pacemaker; | | | | | [phone] | Sinoatrial node | | | | | | dysfunction (HCC) | | | | | | with symptomatic | | | | | | bradycardia | +--------+ + + + + | 08/21/ | Implant | Cardiology | Daljit Singletary, | Remote Device | | 2019 | Monitor | | MD [address] [place] | Interrogation | | | | | [place], | (Primary Dx); | | | | | [place] [address] | Pacemaker; | | | | | [phone] | Sinoatrial node | | | | [...] W | | | | | | [place], | | | | | | [place] [address] | | | | | | [phone] | | | | | | | [...] stenosis in cervical region | + + | Remote Device [...]
--- OUTSIDE RECORDS SUMMARY | ~2020-08-06 | XMS | Encounter Summary ---
Demographics + + + | Address | [address] [place] [address] [address] LOZANO | | | [place] [address] | + + + | Home Phone [...] [place] | | | | | [address] | | + + + + + Care Team Providers + +------+ + | Care Economic Forecaster Name | Role | Phone | + [...] | | | | l weight | [place], [place] | | | | | | loss | [address] | | | | | | Procedures | Phone: | | | | | | CONSULT TO | [phone] | | | | | | NON - [facility] | Fax: | | | | | | PROVIDER | [phone] | | | | | | CONSULT [...] | | [address] | [place], [place] | referral ) | | | | for Health and | [address] | | | | | [facility] 2 | [phone] | | | | | [place], [place] | | | | | | [address] | | | | | | [phone] | | | +--------+ + + + [...] know why. Went to local ED at [facility] for pain and feeling dehydrated. He [...] using the ED too much and a social security specialist talked to him about being seen in an office visit instead. His PCP is over an hour away when the weather is good, and coming to see us in [place] is too far to travel for an [...] says he saw an acupuncture practitioner at [facility] before. Discussed importance of maintaining hydration, encouraged him to let us know what comes of the discussion with ED social security specialist. Let him know I would review with Dr. Rios for any a dditional recommendations, he is already aware of red flag symptoms to seek urgent evaluatio n r/t GI symptoms. We spent 10 minutes on the phone today. 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 Pt said he was in ED yesterday [...] could help him get scheduled. I called [facility] and spoke to Mi about getting [...] 11:15 AM PSTI called [facility] [place]; pill cam study paulino s been approved [...] says he wants to have done at [facility] instead. Seeks call back.Electro nically signed by [...] 12:49 PM PSTPer cecilia Bach for local professional skater consult, referral place d. Faxed face sheet, referral and last office visit to [facility] professional skater services, f#. Spoke with Amilcar and let him know referral was sent to professional skater. He is going to call [place] back to schedule capsule endoscopy, but he had heard that they would be able to schedu le him. No other questions at this time. elephone Encounter - Netta Alexander - 11/21/2019 2:25 PM PSTPerson calling? (Patient, spouse, caregiver, me dical office, etc): patient Reason for call: stating that he has his capsule endoscopy set up with a GI clinic in [place]. Pt would also like to have a referral sent to [facility] for a professional skater fax # [phone] Provider / Specialty: wanda henning/ Blanca Call back number confirmed?: yes Best call back number / ext: [phone] / noted under contact or phone tab. [...] i nfo. Kirk French MD [address] [facility] 101 [place], [place] [id number] Emmanuel Daniel MD [address], [facility] [address] [place] [address] [phone] TTelephone Encounter - Netta Alexander - 11/17/2019 10:01 AM PSTPerson calling? (Patient, s pouse, caregiver, medical office, etc): Patient Reason for call: stating that the referral that was sent to [facility] for Dr. Say flores as not been process. They keep giving him th run around and would like someone in Dr. Zhang office call and check. He would prefer to have this switched to [facility] [phone] Provider / Specialty: wanda/ Blanca Call back number confirmed?: yes Best call back number / ext: [phone] / noted under contact or phone tab. [...]
--- OUTSIDE RECORDS SUMMARY | ~2020-08-06 | XMS | Encounter Summary ---
Demographics + + + | Address | [address] | | | [place] [address] | + + + | Home Phone [...] Team Providers + +------+ + | Care Gamma Facilities Operator Name | Role | Phone | [...] Eva ROUSE | | | | | [place], [place] | [address] | | | | | [address] | [place] [address] | | | | | [phone] | [phone] | | | | | | | [...] Interrogation | | | | | [place], | (Primary Dx); | | | | | [place] [address] | Pacemaker; | | | | | [phone] | Sinoatrial node | | | | | | dysfunction ([facility]) | | | | | | with symptomatic | | | | | | bradycardia | +--------+ + + + + | 08/21/ | Implant | Cardiology | Daljit Singletary, | Remote Device | | 2019 | Monitor | | MD [address] | Interrogation | | | | | [place], | (Primary Dx); | | | | | [place] [address] | Pacemaker; | | | | | [phone] | Sinoatrial node | | | | | | dysfunction (HCC) | | | | | | with symptomatic | | | | | | bradycardia | +--------+ + + + + | 08/21/ | Implant | Cardiology | Daljit Singletary, | Remote Device | | 2019 | Monitor | | MD [address] | Interrogation | | | | | [place], | (Primary Dx); | | | | | [place] [address] | Pacemaker; | | | | | [phone] | Sinoatrial node | | | | | | dysfunction (HCC) | | | | | | with symptomatic | | | | | | bradycardia | +--------+ + + + + | 08/21/ | Implant | Cardiology | Daljit Singletary, | Remote Device | | 2019 | Monitor | | MD [address] | Interrogation | | | | | [place], | (Primary Dx); | | | | | [place] [address] | Pacemaker; | | | | | [phone] | Sinoatrial node | | | | | | dysfunction (HCC) | | | | | | with symptomatic | | | | | | bradycardia | +--------+ + + + + | 08/21/ | Implant | Cardiology | Daljit Singletary, | Remote Device | | 2019 | Monitor | | [address] | Interrogation | | | | | [place], | (Primary Dx); | | | | | [place] [address] | Pacemaker; | | | | | [phone] | Sinoatrial node | | | | [...] W | | | | | | [place], | | | | | | [place] [address] | | | | | | [phone] | | | | | | | [...]
--- OUTSIDE RECORDS SUMMARY | ~2020-08-06 | XMS | Encounter Summary ---
Demographics + + + | Address | [address] | | | [place] [address] | + + + | Home Phone [...] unspecified | [address] | [address] | | | | | type | [address] | [place], | | | | | Procedures | [place], | [place] | | | | | [place] | [place] [address] | [address] | | | | | Stress Test | Phone: | Phone: | | | | | (Vasodilator | [phone] | [phone] | | | | | ) CHG | Fax: | Fax: | | | | | MYOCARDIAL | [phone] | [phone] | | | | | SPECT | | | | | | | MULTIPLE | | | | | | | STUDIES OK | | | | | | | CV STRS TST | | | | | | | XERS&/OR RX | | | | | | | CONT ECG W/O | | | | | | | I&R OK | | | | | | | [...] + + | 07/21/ | Hospital | [facility] | Daljit Singletary, | | | 2018 | Encounter | MED CTR NUCLEAR | MD [address] | | | | | MEDICINE [address] [place], | | | | | [place] | [place] [address] | | | | | [place] [address] | [phone] | | | | | [phone] | | | +--------+ + + + [...] + + + +---------+ + + | Flint-3 Fatty | CAPS, one capsule by | [...] Interrogation | | | | | [place], | (Primary Dx); | | | | | [place] [address] | Pacemaker; | | | | | [phone] | Sinoatrial node | | | | | | dysfunction (HCC) | | | | | | with symptomatic | | | | | | bradycardia | +--------+ + + + + | 08/21/ | Implant | Cardiology | Daljit Singletary, | Remote Device | | 2020 | Monitor | | MD [address] | Interrogation | | | | | [place], | (Primary Dx); | | | | | [place] [address] | Pacemaker; | | | | | [phone] | Sinoatrial node | | | | | | dysfunction (HCC) | | | | | | with symptomatic | | | | | | bradycardia | +--------+ + + + + | 08/21/ | Implant | Cardiology | Daljit Singletary, | Remote Device | | 2019 | Monitor | | MD [address] [place] | Interrogation | | | | | [place], | (Primary Dx); | | | | | [place] [address] | Pacemaker; | | | | | [phone] | Sinoatrial node | | | | | | dysfunction (HCC) | | | | | | with symptomatic | | | | | | bradycardia | +--------+ + + + + | 08/21/ | Implant | Cardiology | Daljit Singletary, | Remote Device | | 2019 | Monitor | | MD [address] [place] | Interrogation | | | | | [place], | (Primary Dx); | | | | | [place] [address] | Pacemaker; | | | | | [phone] | Sinoatrial node | | | | [...] Dx); | | | | | [place] [address] | Pacemaker; | | | | | [phone] | Sinoatrial node | | | | [...] | | | | | | [place], | | | | | | [place] [address] | | | | | | [phone] | | | | | | | [...] | | | | | | Starting [facility] 07/21/18 at 1224, For | | | | | | | 1 dose, Nuclear Medicine | | | | | | + +--------+ + +------+------+ +---+---+ | | | +---+---+ documented in this encounter"
--- OUTSIDE RECORDS SUMMARY | ~2020-08-06 | XMS | Encounter Summary ---
Demographics + + + | Address | [address] | | | [place] [address] | + + + | Home Phone [...] Team Providers + +------+ + | Care Playroom Attendant Name | Role | Phone | + +------+ + | Michael Amanda DO | PCP | | + +------+ + Encounter Details +--------+ + + + + | Date | Type | Department | Care Team | Description | +--------+ + + + + | 01/30/ | Hospital | [facility] | Jay Gambino MD | | | 2012 - | Encounter | HEART MED [facility] | [address] | | | | | CARDIAC TELEMETRY | [address] [place], | | | 01/31/ | | [address] | [place] [address] | | | 2012 | | [place] | [phone] | | | | | [address] | | | | | | [phone] | | | +--------+ + + + [...] 1960 ADMISSION DATE: 01/30/2013 DISCHARGE DATE: 01/31/2013 [id number] / [id number] ADMITTING DIAGNOSES: 1. Symptomatic PVCs. 2. Sinus [...] 150, 1 to 2 tabs daily. 10. Capac-3 fatty acids 1000 mg b.i.d. MOE GAY ADM:01/30/13 [id number] 01/31/13 [place] DISCHARGE SUMMARY [id number] [facility] LAKESHIA Barlow [facility] MD Meena Pleitez THIS REPORT IS CONFIDENTIAL AND NOT TO BE RELEASED WITHOUT PROPER AUTHORIZATION. [facility] 11. Valacyclovir 500 mg daily. B. New medication added: Diltiazem CD 180 a day. FOLLOWUP: The patient has a followup appointment on 03/02/2013 at 10:[address] Niles meza at the [facility], [address]. No heavy lifting or driving times 48 hours. YOANA Barlow MD A P NLV/kmg #[id number] cc: MD Carmela Pleitez PA-C Electronically Signed 02/06/13 1616 LAKESHIA Barlow Electronically Signed 02/20/13 0731 Jay Gambino MD MOE GAY ADM:01/30/13 [id number] 01/31/13 [place] DISCHARGE SUMMARY [id number] [facility] LAKESHIA Barlow [facility] Jay Gambino MD R THIS REPORT IS CONFIDENTIAL AND NOT TO BE RELEASED WITHOUT PROPER AUTHORIZATION.Electronica lly signed by Jael Brown at 02/20/2013 7:31 AM Carmela Cramer - 02/01/20 8:44 AM PDT PATIENT NAME: MOE GAY Sex/Age: M / 52Y : 1960 ADMISSION DATE: 01/30/2013 DISCHARGE DATE: 01/31/2013 [id number] / [id number] ADMITTING DIAGNOSES: 1. Symptomatic PVCs. 2. Sinus [...] 150, 1 to 2 tabs daily. 10. Capac-3 fatty acids 1000 mg b.i.d. MOE GAY ADM:01/30/13 [id number] 01/31/13 [place] DISCHARGE SUMMARY [id number] [facility] LAKESHIA Barlow [facility] MD Meena Pleitez THIS REPORT IS CONFIDENTIAL AND NOT TO BE RELEASED WITHOUT PROPER AUTHORIZATION. [facility] 11. Valacyclovir 500 mg daily. B. New medication added: Diltiazem CD 180 a day. FOLLOWUP: The patient has a followup appointment on 03/02/2013 at 10:[address] Niles meza at the [facility], [address]. No heavy lifting or driving times 48 hours. YOANA Barlow MD A P NLV/kmg #[id number] cc: MD Carmela Pleitez PA-C Electronically Signed 02/06/13 1616 LAKESHIA Barlow MOE GAY ADM:01/30/13 [id number] 01/31/13 [place] DISCHARGE SUMMARY [id number] [facility] LAKESHIA Barlow [facility] MD Meena Pleitez THIS [...] + + + +---------+ + + | Capac-3 Fatty | CAPS, one capsule by | [...] GAY Sex/Age: M / 52Y : 1960 AIRWAYS CONTROL SPECIALIST: Jay Gambino MD DATE: 01/30/2013 PROCEDURE: 1. [...] In the right femoral vein an 8 Macedonian, 7 Macedonian and 6 Macedonian sheaths were placed, in the right femoral artery an 8 Macedonian sheath was placed. At baseline, the patient was in atrially paced rhythm programmed to AAIR/DDDR at a lower rate limit of 70 beats per minute. Prior to the procedure I reprogrammed his device to AAI at a lower rate limit of 60. His IN interval was 150 ms, QRS 92 ms, [...] access was directed more MOE GAY ADM:10/04 [id number] 01/31/13 [place] CARDIAC PROCEDURE REPORT [id number] [facility] Jay Gambino MD E-Sign: [facility] THIS REPORT IS CONFIDENTIAL AND NOT TO BE RELEASED WITHOUT PROPER AUTHORIZATION. [facility] inferior than the prior PVCs but [...] via the right femoral artery. An [address] The patient was [...] or if this helps. MONA GAY ADM:01/30/13 [id number] 01/31/13 [place] CARDIAC PROCEDURE REPORT [id number] [facility] Jay Gambino MD E-Sign: [facility] THIS REPORT IS CONFIDENTIAL AND NOT TO BE RELEASED WITHOUT PROPER AUTHORIZATION. [facility] Jay Gambino MD A A MARVIN/sharonda #[id number] cc: Jay Gambino MD Electronically Signed 02/16/13 1100 Jay Gambino MD MONA GAY ADM:01/30/13 [id number] 01/31/13 [place] CARDIAC PROCEDURE REPORT [id number] [facility] Jay Gambino MD E-Sign: [facility] THIS REPORT IS CONFIDENTIAL AND NOT [...] Dx); | | | | | [place] [address] | Pacemaker; | | | | | [phone] | Sinoatrial node | | | | | | dysfunction (HCC) | | | | | | with symptomatic | | | | | | bradycardia | +--------+ + + + + | 08/21/ | Implant | Cardiology | Daljit Singletary, | Remote Device | | 2019 | Monitor | | MD [address] | Interrogation | | | | | [place], | (Primary Dx); | | | | | [place] [address] | Pacemaker; | | | | | [phone] | Sinoatrial node | | | | | | dysfunction (HCC) | | | | | | with symptomatic | | | | | | bradycardia | +--------+ + + + + | 08/21/ | Implant | Cardiology | Daljit Singletary, | Remote Device | | 2019 | Monitor | | MD [address] | Interrogation | | | | | [place], | (Primary Dx); | | | | | [place] [address] | Pacemaker; | | | | | [phone] | Sinoatrial node | | | | | | dysfunction ([facility]) | | | | | | with symptomatic | | | | | | bradycardia | +--------+ + + + + | 08/21/ | Implant | Cardiology | Daljit Singletary, | Remote Device | | 2020 | Monitor | | MD [address] | Interrogation | | | | | [place], | (Primary Dx); | | | | | [place] [address] | Pacemaker; | | | | | [phone] | Sinoatrial node | | | | | | dysfunction (HCC) | | | | | | with symptomatic | | | | | | bradycardia | +--------+ + + + + | 08/21/ | Implant | Cardiology | Daljit Singletary, | Remote Device | 2019 | Monitor | | [address] | Interrogation | | | | | [place], | (Primary Dx); | | | | | [place] [address] | Pacemaker; | | | | | [phone] | Sinoatrial node | | | | [...] W | | | | | | [place], | | | | | | [place] [address] | | | | | | [phone] | | | | | | | [...] + + | YESSY JONES | [address] | [place] [address] | | | HEART [facility] | | | [...] + + + + + | TRENTONE SACRARTURO | [address] | [place] [address] | | | [facility] | | | | | LABORATORY | | | | + + + + + | [facility] | | | | | [place] [...] + + | Glucose | 113 (H)Comment: Palau[place] | 65 - 99 mg/dL | [facility] [...] 0.79Comment: IDMS | 0.70 - 1.30 | [facility] | | | | traceable creatinine | [...] + + | YESSY JONES | [address] | [place] [address] | | | [facility]ART [facility] | | | | | LABORATORY | | | | + + + + + | YESSY JONES | | | | | [facility] | | | | | LABORATORY | | | | + + + + + documented in this encounter Visit Diagnoses Not on filedocumented in this encounter"
--- OUTSIDE RECORDS SUMMARY | ~2020-08-06 | XMS | Encounter Summary ---
Demographics + + + | Address | [address] | | | [place] [address] | + + + | Home Phone [...] Providers + +------+ + | Care Hospice Registered Nurse Name | Role | Phone | + +------+ + | Michael Amanda DO | PCP | | + +------+ + Encounter Details +--------+ + + + + | Date | Type | Department | Care Team | Description | +--------+ + + + + | 05/11/ | Hospital | [facility] | Conversion | Lumbago; | | 2014 | Encounter | [facility]ICAL CENTER | Transaction, | Postlaminectomy | | | | CLINICAL DECISION | Provider Unknown | syndrome, cervical | | | | [address] | | region; Cervicalgia | | | | [place], [place] | (Fax) | | | | | [address] | Cesar, | | | | | [phone] | MD Gamaliel | | +--------+ + [...] (none) Author Type: Registered Nurse Filed: 05/11/14 1500 Date of Service: 05/11/141504 Status: Signed Civil Design Technician: Meliza Macario RN (Registered Nurse) Pt discharged [...] 1424 Date of Service: 05/11/141422 Status: Signed Civil Design Technician: Heike Mckeon RN (Registered Nurse) Called doctor [...] Interrogation | | | | | [place], | (Primary Dx); | | | | | [place] [address] | Pacemaker; | | | | | [phone] | Sinoatrial node | | | | | | dysfunction (HCC) | | | | | | with symptomatic | | | | | | bradycardia | +--------+ + + + + | 08/21/ | Implant | Cardiology | Daljit Singletary, | Remote Device | | 2019 | Monitor | | MD [address] [place] | Interrogation | | | | | [place], | (Primary Dx); | | | | | [place] [address] | Pacemaker; | | | | | [phone] | Sinoatrial node | | | | | | dysfunction (HCC) | | | | | | with symptomatic | | | | | | bradycardia | +--------+ + + + + | 08/21/ | Implant | Cardiology | Daljit Singletary, | Remote Device | | 2019 | Monitor | | MD [address] [place] | Interrogation | | | | | [place], | (Primary Dx); | | | | | [place] [address] | Pacemaker; | | | | | [phone] | Sinoatrial node | | | | | | dysfunction (HCC) | | | | | | with symptomatic | | | | | | bradycardia | +--------+ + + + + | 08/21/ | Implant | Cardiology | Daljit Singletary, | Remote Device | | 2019 | Monitor | | MD [address] [place] | Interrogation | | | | | [place], | (Primary Dx); | | | | | [place] [address] | Pacemaker; | | | | | [phone] | Sinoatrial node | | | | | | dysfunction (HCC) | | | | | | with symptomatic | | | | | | bradycardia | +--------+ + + + + | 08/21/ | Implant | Cardiology | Daljit Singletary, | Remote Device | | 2019 | Monitor | | MD [place] [place] | Interrogation | | | | | [place], | (Primary Dx); | | | | | [place] [address] | Pacemaker; | | | | | [phone] | Sinoatrial node | | | | [...] | | | | | | [place], | | | | | | [place] [address] | | | | | | [phone] | | | | | | | [...] | | | intrathecal use. See the biscuit maker examination for details of the | | | injection. Bone algorithm noncontrast technique with reformatted | | | sagittal and coronal images. Prior study for review : CT discogram | | | from 2004 was used to orient this examination given the transitional | | | anatomy of the lumbosacral junction FINDINGS: Scale Technician is notable | | | for [...] for intrathecal use. See | | the biscuit maker examination for details of the injection. Bone algorithm noncontrast | | technique with reformatted sagittal and coronal images. Prior study for review : CT | | discogram from 2004 was used to orient this examination given the transitional anatomy | | of the lumbosacral junction FINDINGS: Scale Technician is notable for a pacing system. [...]
--- OUTSIDE RECORDS SUMMARY | ~2020-08-06 | XMS | Encounter Summary ---
Demographics + + + | Address | [address] | | | [place] [address] | + + + | Home Phone [...] Team Providers + +------+ + | Care Bi Specialist Name | Role | Phone | [...] | 2018 | Changes | GASTROENTEROLOGY | [facility] | | | | | [address] | | | | | | [address] | | | | | | [address] | | | | | | [phone] | | | +--------+ + + + [...] Dx); | | | | | [place] [address] | Pacemaker; | | | | | [phone] | Sinoatrial node | | | | [...] Dx); | | | | | [place] [address] | Pacemaker; | | | | | [phone] | Sinoatrial node | | | | [...] Dx); | | | | | [place] [address] | Pacemaker; | | | | | [phone] | Sinoatrial node | | | | [...] Dx); | | | | | [place] [address] | Pacemaker; | | | | | [phone] | Sinoatrial node | | | | | | dysfunction (HCC) | | | | | | with symptomatic | | | | | | bradycardia | +--------+ + + + + | 08/21/ | Implant | Cardiology | Daljit Singletary, | Remote Device | | 2019 | Monitor | | MD [place] | Interrogation | | | | | [place], | (Primary Dx); | | | | | [place] [address] | Pacemaker; | | | | | [phone] | Sinoatrial node | | | | [...] | | | | | | [place] [address] | | | | | | [phone] | | | | | | | | +--------+ + + + + documented as of this encounter Visit Diagnoses Not on filedocumented in this encounter"
--- OUTSIDE RECORDS SUMMARY | ~2020-08-06 | XMS | Encounter Summary ---
Demographics + + + | Address | [address] | | | [place] [address] | + + + | Home Phone [...] Providers + +------+ + | Care Press Department Manager Name | Role | Phone [...] CARDIOLOGY [address] | MD [address] [place] | Interrogation | | | | [place], | [place], | (Primary Dx); | | | | [place] [address] | [place] [address] | Pacemaker; | | | | [phone] | [phone] | Sinoatrial node | | | | [...] Paceart documentation and remote PDF scanned into Evocha for remote interrogation re sults. Data collected [...] Interrogation | | | | | [place], | (Primary Dx); | | | | | [place] [address] | Pacemaker; | | | | | [phone] | Sinoatrial node | | | | | | dysfunction (HCC) | | | | | | with symptomatic | | | | | | bradycardia | +--------+ + + + + | 08/21/ | Implant | Cardiology | Daljit Singletary, | Remote Device | | 2019 | Monitor | | MD [place] | Interrogation | | | | | [place], | (Primary Dx); | | | | | [place] [address] | Pacemaker; | | | | | [phone] | Sinoatrial node | | | | | | dysfunction (HCC) | | | | | | with symptomatic | | | | | | bradycardia | +--------+ + + + + | 08/21/ | Implant | Cardiology | Daljit Singletary, | Remote Device | | 2019 | Monitor | | MD [address] [place] | Interrogation | | | | | [place], | (Primary Dx); | | | | | [place] [address] | Pacemaker; | | | | | [phone] | Sinoatrial node | | | | | | dysfunction (HCC) | | | | | | with symptomatic | | | | | | bradycardia | +--------+ + + + + | 08/21/ | Implant | Cardiology | Daljit Singletary, | Remote Device | | 2019 | Monitor | | MD [address] [place] | Interrogation | | | | | [place], | (Primary Dx); | | | | | [place] [address] | Pacemaker; | | | | | [phone] | Sinoatrial node | | | | | | dysfunction (HCC) | | | | | | with symptomatic | | | | | | bradycardia | +--------+ + + + + | 08/21/ | Implant | Cardiology | Daljit Singletary, | Remote Device | | 2019 | Monitor | | [address] [place] | Interrogation | | | | | [place], | (Primary Dx); | | | | | [place] [address] | Pacemaker; | | | | | [phone] | Sinoatrial node | | | | [...] | | | | | | [place] [address] | | | | | | [phone] | | | | | | | [...]
--- OUTSIDE RECORDS SUMMARY | ~2020-08-06 | XMS | Encounter Summary ---
Demographics + + + | Address | [address] | | | [place] [address] | + + + | Home Phone [...] Providers + +------+ + | Care Customer Insight Analyst Name | Role | Phone | [...] [facility] | [address], [place] | | | | | [address] | [address] [place], [place] | | | | | [place], [place] | [address] | | | | | [address] | | | | | | [phone] | | | +--------+---------+ + + + [...] by mouth. | | 0 | | 05/17/201 | | (VITAMIN D-3) 1,000 | | [...] has had some increasing bowel difficulties since at time. He has tried parasitic cleanses [...] Endoscopy Patient: Moe Sanchez : 1960 Acct: [id number] Exam Date: Sunday, December 24, 2017 Doctor: [...] If unable to reach your physician, call [facility] Emergency Department at [phone] [...] Exams Patient: Moe Sanchez : 1960 Acct: [id number] Exam Date: Sunday, December 24, 2017 Doctor: [...] If unable to reach your physician, call [facility] Emergency Department at [phone] [...] has been signed electronically.Electronically signed by Emmanuel Dnaiel MD at 2:06 PM PSTdocumented in this [...] Interrogation | | | | | [place], | (Primary Dx); | | | | | [place] [address] | Pacemaker; | | | | | [phone] | Sinoatrial node | | | | | | dysfunction (HCC) | | | | | | with symptomatic | | | | | | bradycardia | +--------+ + + + + | 08/21/ | Implant | Cardiology | Daljit Singletary, | Remote Device | | 2019 | Monitor | | MD [address] | Interrogation | | | | | [place], | (Primary Dx); | | | | | [place] [address] | Pacemaker; | | | | | [phone] | Sinoatrial node | | | | | | dysfunction (HCC) | | | | | | with symptomatic | | | | | | bradycardia | +--------+ + + + + | 08/21/ | Implant | Cardiology | Daljit Singletary, | Remote Device | | 2019 | Monitor | | MD [address] | Interrogation | | | | | [place], | (Primary Dx); | | | | | [place] [address] | Pacemaker; | | | | | [phone] | Sinoatrial node | | | | | | dysfunction (HCC) | | | | | | with symptomatic | | | | | | bradycardia | +--------+ + + + + | 08/21/ | Implant | Cardiology | Daljit Singletary, | Remote Device | | 2020 | Monitor | | MD [address] | Interrogation | | | | | [place], | (Primary Dx); | | | | | [place] [address] | Pacemaker; | | | | | [phone] | Sinoatrial node | | | | | | dysfunction (HCC) | | | | | | with symptomatic | | | | | | bradycardia | +--------+ + + + + | 08/21/ | Implant | Cardiology | Daljit Singletary, | Remote Device | 2019 | Monitor | | [address] | Interrogation | | | | | [place], | (Primary Dx); | | | | | [place] [address] | Pacemaker; | | | | | [phone] | Sinoatrial node | | | | [...] [address] | | | | | [address] [place], | | | | | | [place] [address] | | | | | | [phone] | | | | | | | [...] + + | Performed at: 01 - [facility] [address], | REFERENCE LAB | | [place], [place] [id number] Life Science Technician: William Andrew MD, Phone: | [facility] | | [phone] | | + + + + + + + + | Performing | Address | City/State/Zipcode | Phone Number | | Organization | | | | + + + + + | REFERENCE LAB | [address] | [place], [place] | [phone] | | [facility] | Drive [facility] | [address] | | + + + + + [...] GUTIERREZ. | [address] | [place] | [phone] | | [facility] | | [address] | | | - LABORATORY | | [...] ST. | [address] | [place], [place] | [phone] | | [facility] | | [address] | | | - LABORATORY | | [...] [address] | [place] | [phone] | | [facility] | | [address] | | | - LABORATORY | | [...] + + | Performed at: 01 - [facility] [address], | REFERENCE LAB | | [place], [place] [id number] Life Science Technician: William Andrew MD, Phone: | [facility] | | [phone] | | + + + + + + + + | Performing | Address | City/State/Zipcode | Phone Number | | Organization | | | | + + + + + | REFERENCE LAB | [address] | [place], [place] | [phone] | | [facility] | [place] | [address] | | + + + + + [...] | [address] | [place] | [phone] | | [facility] | | [address] | | | - LABORATORY | | [...] + | [facility] | [address] | [place] | [phone] | | [facility] | | [address] | | | - LABORATORY | | [...] [address] | [place] | [phone] | | [facility] | | [address] | | | - LABORATORY | | [...] [address] | [place] | [phone] | | [facility] | | [address] | | | - LABORATORY | | [...] | r pylori Ag | | | . [facility] | | | | | [...] [address] | [place] | [phone] | | [facility] | | [address] | | | - LABORATORY | | | | + + + + + EGD (12/24/2017 1:19 PM PST) + + | Specimen | + + | | + + + + -+ | Narrative | Performed At | + + -+ | | [facility] | | GastroenterologyPatient Name: Moe SanchezProcapri Date: 12/24/2017 | [facility] | | 1:19 PMMRN: [id number] #: [id number] of : | | | 9Admit Type: AmbulatoryAge: 57Room: [facility] 01Gender: MaleNote | | | Status: FinalizedAttending MD: Emmanuel Daniel , [facility]rocedure: | | | Upper GI endoscopyIndications: Diarrhea, Weight | | | lossProviders: Emmanuel Daniel MD, Maria Isabel Morris RN, | | | Kim Hicks, Pump Servicer Supervisor, [place] | | | Sapna Barakat MD (Anesthesia [...] the anesthesiologist and | | | the integrated pest management technician in the endoscopy suite. Mental Status [...] Out: 1:31:13 PM | | | [facility], [address] [facility] | | | [place] [address] | | | - Discharge patient to [...] Out: 1:31:13 PM | | | [facility], [address], [place] | | | [address] | | + + -+ + +---------+ [...] 12/24/2017 | [facility] | | 1:17 PMMRN: [id number] #: [id number] of : | | | 9Admit Type: AmbulatoryAge: 57Room: [facility] 01Gender: MaleNote | | | Status: FinalizedAttending MD: Emmanuel Daniel MDProcedure: | | | ColonoscopyIndications: Clinically significant diarrhea of | | | unexplained originProviders: Emmanuel Daniel MD, Maria Isabel | | | Arturo, RN, Kim Hicks, Pump Servicer Supervisor, | | | Jarett Barakat MD [...] | | | the anesthesiologist and the integrated pest management technician in the endoscopy suite. | | [...] Scope In: 1:32:55 PMScope Out: 1:48:57 PM [facility] | | | [facility], [facility] [place] [address] | | | [phone] | | | - Await pathology results. [...] Out: 1:48:57 PM | | | [facility], [address] [facility], [place], [place] | | | [address] | | + + -+ + +---------+ [...] | colonic mucosa with focal adenomatous change. CLR:[facility]:C2NR | | | GROSS DESCRIPTION: Received in four parts. A. Received in | | | formalin labeled "[facility], A." and labeled "duodenal bx" on | | | the requisition are six pink-lin tissue fragments measuring from | | | 0.3-0.8 cm submitted, all in (A1). B. Received in formalin labeled | | | "[facility], C." and labeled "B, left colon bx" on the | | | requisition are five pink-lin tissue fragments measuring from 0.2-09.9 | | | cm, submitted, all in (B1). C. Received in formalin labeled | | | "[facility], D." and labeled "C, bx TI" on the requisition are | | | six matias-pink and lin colored tissue fragments measuring from 0.5 cm, | | | submitted, all in (C1). D. Received in formalin labeled "[facility] | | | [facility], E. ASC" and labeled "D. ascending colon bx" on the | | | requisition are nine pink-lin tissue fragments measuring from 0.15-0.5 | | | cm, submitted, all in (D1). ka:CLR:[facility] ADDITIONAL NOTES: | | | Immunohistochemical studies were performed on this case with the | | | appropriate positive controls that react as expected. This test was | | | developed and its performance characteristics determined by [facility] | | | [facility]. It has not been cleared or approved by the U.S. Food | | | and Drug Administration. The FDA has determined that such clearance | | | or approval is not necessary. This test is used for clinical | | | purposes. It should not be regarded as investigational or for | | | research. [facility] is certified under the Clinical | | | Laboratory Improvement Amendments of 1988 (CLIA) as qualified to | | | perform high complexity clinical laboratory testing. This assay | | | has not been validated for specimens that have been decalcified. | | | PERFORMING LABORATORY: Tissue processing and slide preparation were | | | performed by [facility], [address] [place] [address], [address], [facility] | | | [place] [address] (Grain Packer: Evan Frausto M.D. CLIA#: | | | [id number]). Professional interpretation was performed by [facility] | | | [facility], [address] [place] [address], [address], [place] [address] | | | (Grain Packer: Evan Frausto M.D.; [facility]#: [id number]). | | | Diagnostician: Rafael Bales MD Pathologist Electronically | | | Signed 12/28/2017 | | + + + + +---------+ + + | Performing | Address | City/State[facility] | Phone Number | | Organization | [...]
--- OUTSIDE RECORDS SUMMARY | ~2020-08-06 | XMS | Encounter Summary ---
Demographics + + + | Address | [address] | | | [place] [address] | + + + | Home Phone [...] Providers + +------+ + | Care Cleaning Team Member Name | Role | Phone | + +------+ + | Michael Amanda DO | PCP | | + +------+ + Encounter Details +--------+ + + + + | Date | Type | Department | Care Team | Description | +--------+ + + + + | 02/27/ | Hospital | [facility] | Shelly Carter DO | Chest pain; | | 2013 - | Encounter | [facility]ICAL [facility]ENTER | [address] | Pacemaker; | | | | CLINICAL DECISION | [place] [address] | Mild dehydration | | 02/28/ | | [address] | [phone] | | | 2013 | | [place], [place] | | | | | | [address] | | | | | | [phone] | | | +--------+ + + + [...] Service: Hospitalist Author Type: Physician Filed: 03/06/14 4880 Date of Service: 02/28/141044 Status: Addendum Processing Technologist: Dev Montano MD (Physician) Related Notes: Original Note by Dev Montano MD (Physician) filed at 02/28/14 1107 Patient ID: Pina Gay [id number] y.o. 1960 Admit date: 02/27/2014 Discharge [...] - 99 mg/dL Final Testing performed at [address] [address] BUN Date Value Range Status 02/28/2014 15 8 - 25 mg/dL Final Testing performed at [address] [address] CREATININE Date Value Range Status 02/28/2014 0.74 0.70 - 1.30 mg/dL Final Testing performed at [address] [address] BUN/CREAT Date Value Range Status 02/28/2014 20 Final Testing performed at [address] [address] TOTAL PROTEIN Date Value Range Status 02/28/2014 6.1* 6.3 - 8.2 g/dL Final Testing performed at [address] [address] GLOBULIN Date Value Range Status 02/28/2014 2.1 1.3 - 4.9 g/dL Final Testing performed at [facility], [address] [place] [address] TBIL Date Value Range Status 02/28/2014 1.4 0.1 - 1.5 mg/dL Final Testing performed at [address] [address] ALT Date Value Range Status 02/28/2014 27 10 - 65 U/L Final Testing performed at [address] [address] AST Date Value Range Status 02/28/2014 31 10 - 45 U/L Final Testing performed at [address] [address] SODIUM Date Value Range Status 02/28/2014 138 135 - 143 mmol/L Final Testing performed at [address] [address] POTASSIUM Date Value Range Status 02/28/2014 3.4* 3.5 - 4.9 mmol/L Final Testing performed at [address] [address] CHLORIDE Date Value Range Status 02/28/2014 108 99 - 109 mmol/L Final Testing performed at [address] [address] CO2 Date Value Range Status 02/28/2014 21* 23 - 32 mmol/L Final Testing performed at [address] [address] ANION GAP AGAP Date Value Range Status 02/28/2014 12 5 - 20 mmol/L Final Testing performed at [address] [address] Xr Chest Pa And Lateral 02/27/2014 PINA [...] 3-D reconstructi ons were performed using the [employer] 3-D software and sent to PACS. Oral Contrast: None I V contrast: 100 mL IsoVue 370 COMPARISON: None. FINDINGS: CHEST: The way inspector view shows a p acemaker via left [...] catheterization recently done by Dr. Singletary in [place] in December 2013 at [facility] which showed minimal occlusive disease. One artery was 25% and another was 15%, per patient. I requested official cardiac catheterization report from [place] and still waiting for it to come. [...] are the prescriptions that you need to chart picker. You may get these medications from any pharmacy. amLODIPine 5 MG tablet pantoprazole 40 MG tablet Activity: activity as tolerated Diet: cardiac diet Wound Care: not applicable There are no Patient Instructions on file for this visit. Per Pt None Chaka Ortiz MD [address] [facility] [id number] In 1 week Ariel Pulido MD [address] [facility] [address] In 1 week Daljit Singletary MD [address] [address] [facility] [address] In 1 week Signed: DEV MONTANO 02/28/2014 10:45 AM Addendum:ADDENDUM I just received a cardiac catheterization report from , [place], which was done on December 25, 2013. [...] + + + +---------+ + + | Bethel-3 Fatty | CAPS, one capsule by | [...] Progress Note by Jessica Sosa RN at 02/28/14 1211 Author: Jessica Soas RN Service: (none) Author Type: Registered Nurse Filed: 02/28/14 1212 Date of Service: 02/28/141210 Status: Signed Processing Technologist: Jessica Sosa RN (Registered Nurse) Discharge instructions given to the patient. Advised to follow up with Ariel Cooper, and his cardiologists all within 1 week. No concerns at this time. IV discontinued, all belo ngings went with the patient. onver fatemeh Transaction, Provider Unknown - 02/28/2014 12:12 AM PDT Progress Notes by Mary Wetzel RPH at 02/28/14 0012 Author: Mary Wetzel RPH Service: (none) Author Type: Pharmacist Filed: 02/28/1411 Date of Service: 02/28/1411 Status: Signed Processing Technologist: Mary Wetzel RPH (Pharmacist) Clinical Pharmacy Note: [...] might be different from t christopher original. H&P by Shelly Carter DO at 02/27/141952 Author: Shelly Carter DO Service: (none) Author Type: Physician Filed: 02/27/142125 Date of Service: 02/27/141952 Status: Signed Processing Technologist: Shelly Carter DO (Physician) [facility] Service: Hospitalist Admission History & Physical Date [...] cardiac testing: Cardiac cath December 2013 at [facility]. Presently, patient denies chest pain, SOB, PAULINO, nausea, vomiting. No recent weight gain or loss, night sweats x 3 nights, constipation, diarrhea, dysuria, polydipsia, polyuria, hea t or cold intolerance. Diarrhea x 2 days, brown in color, 4 stool in the last 24 hours, taki ng Imodium to control it. Patient has not taken any antibiotics. [facility]es [facility], stopped all pain medication 3 weeks [...] Procedure Component Value Units Date/Time Cardiac Panel [[id number]] (Abnormal) Collected:02/27/14 1747 WBC 10.1 K/uL Updated:02/27/14 [...] 9.3 (H) ng/mL CK-MB Index 1.8 TSH [[id number]] Collected:02/27/141746 Specimen Information:Blood Updated:02/27/14 1823 TSH 0.91 uIU/mL BNP [[id number]] Collected:02/27/141746 Specimen Information:Blood Updated:02/27/141816 BRAIN NATRIURETIC PEPTIDE [...] discussed with patient. Questions answered. Patient verbalized caitiei paola Other recommendations for management of this patient will be dependent upon the patient's c linical course. Dictation software, [employer], used which may contain error for similar [...] 02/27/142025 Date of Service: 02/27/142014 Status: Signed Processing Technologist: Doris Romero RN (Registered Nurse) Dr Carter at bedside. Doris Romero RN 02/27/142025 liel Reid MD - 02/27/2014 5:18 PM PDT ED Provider Notes by Eliel Calzada DO at 02/27/141717 Author: Eliel Calzada DO Service: (none) Author Type: Physician Filed: 03/01/14 1130 Date of Service: 02/27/141717 Status: Signed Processing Technologist: Eliel Calzada DO (Physician) [facility] Department of Emergency Medicine 02/27/2014 5:47 PM History of Present Illness Patient Identification Pina Gay is a 54 y.o. male. Patient information was obtained from patient. History/Exam limitations: none. Patient presented to the Emergency Department by: Car Chief Complaint Chief Complaint Patient presents with Chest Pain Pt presents to the ED with complaints of chest pain. Onset of symptoms was [employer], with an im proving course since that [...] include but are not limited to: acute HI, unstable angina, thoracic aortic dissectio n, pneumothorax, [...] reviewed (Using the electronic record system of [facility], I car efully reviewed the records with regard to the past medical/surgical history, previous medic ations, and allergies). Laboratory Evaluation Results Procedure Component Value Ref Range Date/Time Cardiac Panel [[id number]] (Abnormal) Collected:02/27/14 1747 Order Status:Completed Updated:02/27/14 1823 [...] - 3.6 ng/mL CK-MB Index 1.8 TSH [[id number]] Collected:02/27/141746 Order Status:Completed Updated:02/27/14 182 Specimen Information:Blood TSH 0.91 0.45 - 5.10 uIU/mL BNP [[id number]] Collected:02/27/141746 Order Status:Completed Updated:02/27/141816 Specimen Information:Blood BRAIN NATRIURETIC PEPTIDE 5.7 0 - 100 pg/mL POC cardiac troponin [[id number]] Collected:02/27/141748 Order Status:Completed Updated:02/27/141802 POC CARDIAC TROPONIN 0.00 0.00 - 0.10 ng/mL I personally reviewed the lab results and they have been posted to the chart. Pertinent po sitive and negative findings have been addressed appropriately. Radiology and EKG Evaluation EKG from 1722 Normal arterially paced rhythm at 78 bpm Normal OR and [place] Normal QRS and [place] Normal QT and QTc Normal ST/T without [...] Interpretation Documented by Eliel Calzada DO (02/27/14 1821, [facility] Emergency Department, Emergency Medicine) Chest X-ray: No [...] week aortic aneurym ON CT chest needs [address] [address] Ariel Pulido MD In 1 week 7[address] [facility] [address] Daljit Singletary MD In 1 week [address] [place] [address] Per Pt None Discharge Medications: New Prescriptions AMLODIPINE (NORVASC) 5 MG TABLET Take 1 tablet by mouth daily. PANTOPRAZOLE (PROTONIX) 40 MG TABLET Take 1 tablet by mouth every morning before breakf ast. Additional Documentation Procedures Attending Note: Documentation assistance provided by Jennifer Nevarez (Scribe). Information recorded by the scribe has been reviewed and validated by me. I elder angel with its contents. DO Eliel Vivar DO 03/01/14 2330 documented in this encounter Miscellaneous Notes Plan of Care - Conversion Transaction, Provider Unknown - 02/28/2014 10:59 AM PDT Plan of Care by Jessica Sosa RN at 02/28/14 1059 Author: Jessica Sosa RN Service: (none) Author Type: Registered Nurse Filed: 02/28/14 105 Date of Service: 02/28/141058 Status: Signed Processing Technologist: Jessica Sosa RN (Registered Nurse) Problem: Pain [...] Comments: JESSICA SOSA RN, 02/28/2014 10:59 AM Karen pfeiffer in this encounter Plan [...] Dx); | | | | | [place] [address] | Pacemaker; | | | | | [phone] | Sinoatrial node | | | | | | dysfunction (HCC) | | | | | | with symptomatic | | | | | | bradycardia | +--------+ + + + + | 08/21/ | Implant | Cardiology | Daljit Singletary, | Remote Device | | 2019 | Monitor | | MD [address] | Interrogation | | | | | [place], | (Primary Dx); | | | | | [place] [address] | Pacemaker; | | | | | [phone] | Sinoatrial node | | | | | | dysfunction (HCC) | | | | | | with symptomatic | | | | | | bradycardia | +--------+ + + + + | 08/21/ | Implant | Cardiology | Daljit Singletary, | Remote Device | | 2019 | Monitor | | MD [address] | Interrogation | | | | | [place], | (Primary Dx); | | | | | [place] [address] | Pacemaker; | | | | | [phone] | Sinoatrial node | | | | | | dysfunction (HCC) | | | | | | with symptomatic | | | | | | bradycardia | +--------+ + + + + | 08/21/ | Implant | Cardiology | Daljit Singletary, | Remote Device | | 2019 | Monitor | | MD [address] | Interrogation | | | | | [place], | (Primary Dx); | | | | | [place] [address] | Pacemaker; | | | | | [phone] | Sinoatrial node | | | | [...] Dx); | | | | | [place] [address] | Pacemaker; | | | | | [phone] | Sinoatrial node | | | | [...] | | | | | | [place], | | | | | | [place] [address] | | | | | | [phone] | | | | | | | [...] EXTERNAL | | | | performed at [facility];[address] | | LAB | | | | [address] [facility];[place], [place] | | | | | | [address] | | | | + + + [...] | | | | | performed at [facility];[address] | | | | | | [address];[place], [place] | | | | | | [address] | | | | + + + [...] | | | | | [place] [address] | | | | + + + + + + | Non- | 4.68Comment: Testing | 4.20 - 5.70 | EXTERNAL | | | Red Blood | performed at [facility], [address] | M/uL | LAB | | | Cells | [address], | | | | | Counted | [place] [address] | | | | + + + + + + | Hemoglobin | 15.3Comment: Testing | 13.2 - 17.0 | EXTERNAL | | | | performed at [facility], [address] | g/dL | LAB | | | | [address], | | | | | | [place] [address] | | | | + + + + + + | Hematocrit, | 44.2Comment: Testing | 39.0 - 50.0 % | EXTERNAL | | | POC | performed at [facility], [address] | | LAB | | | | [address], | | | | | | [place] [address] | | | | + + + + + + | MCV | 94.5Comment: Testing | 80.0 - 100.0 fl | EXTERNAL | | | | performed at [facility], [address] | | LAB | | | | [address], | | | | | | [place] [address] | | | | + + + + + + | MCH | 32.6Comment: Testing | 27.0 - 34.0 pg | EXTERNAL | | | | performed at [facility], [address] | | LAB | | | | [address], | | | | | | [place] [address] | | | | + + + + + + | MCHC | 34.5Comment: Testing | 32.0 - 35.5 | EXTERNAL | | | | performed at [facility], [address] | g/dL | LAB | | | | [address], | | | | | | [place], [place] [address] | | | | + + + + + + | RDW-CV | 45.5Comment: Testing | 37 - 53 fl | EXTERNAL | | | | performed at [facility], [address] | | LAB | | | | [address], | | | | | | [place] [address] | | | | + + + + + + | Platelet | 156Comment: Testing | 150 - 400 K/uL | EXTERNAL | | | Count | performed at [facility], [address] | | LAB | | | Plasma | [address], | | | | | | [place] [address] | | | | + + + + + + | MPV | 8.8Comment: Testing | fl | EXTERNAL | | | | performed at [facility], [address] | | LAB | | | | [address], | | | | | | [place] [address] | | | | + + + + + + | Differentia | AUTOMATEDComment: | | EXTERNAL | | | l Type | Testing performed at | | LAB | | | | [facility], [address] | | | | | | [place] | | | | | | [address] | | | | + + + + + + | % Segmented | 57.7Comment: Testing | % | EXTERNAL | | | | performed at [facility], [address] | | LAB | | | Neutrophils | [address], | | | | | | [place] [address] | | | | + + + + + + | % | 31.8Comment: Testing | % | EXTERNAL | | | Lymphocytes | performed at [facility], [address] | | LAB | | | | [address], | | | | | | [place] [address] | | | | + + + + + + | % Monocytes | 9.2Comment: Testing | % | EXTERNAL | | | | performed at [facility], [address] | | LAB | | | | [address], | | | | | | [place] [address] | | | | + + + + + + | % | 0.9Comment: Testing | % | EXTERNAL | | | Eosinophils | performed at [facility], [address] | | LAB | | | | [address], | | | | | | [place] [address] | | | | + + + + + + | % Basophils | 0.4Comment: Testing | % | EXTERNAL | | | | performed at [facility], [address] | | LAB | | | | [address], | | | | | | [place] [address] | | | | + + + + + + | Absolute | 3.9Comment: Testing | 1.9 - 7.4 K/uL | EXTERNAL | | | Segmented | performed at [facility], [address] | | LAB | | | Neutrophils | [address], | | | | | | [place] [address] | | | | + + + + + + | Absolute | 2.1Comment: Testing | 1.0 - 3.9 K/uL | EXTERNAL | | | Lymphocytes | performed at [facility], [address] | | LAB | | | | [address], | | | | | | [place] [address] | | | | + + + + + + | Absolute | 0.6Comment: Testing | 0 - 0.8 K/uL | EXTERNAL | | | Monocytes | performed at [facility], [address] | | LAB | | | | [address], | | | | | | [place] [address] | | | | + + + + + + | Absolute | 0.1Comment: Testing | 0 - 0.5 K/uL | EXTERNAL | | | Eosinophils | performed at [facility], [address] | | LAB | | | | [address], | | | | | | [place] [address] | | | | + + + + + + | Absolute | 0.0Comment: Testing | 0 - 0.1 K/uL | EXTERNAL | | | Basophils | performed at [facility], [address] | | LAB | | | | [address], | | | | | | [place] [address] | | | | + + + [...] EXTERNAL | | | | performed at [facility], [address] | | LAB | | | | [address], | | | | | | [place] [address] | | | | + + + [...] EXTERNAL | | | | performed at [facility], [address] | | LAB | | | | [address], | | | | | | [place] [address] | | | | + + [...] EXTERNAL | | | | performed at [facility];[address] | | LAB | | | | [address];[place], [place] | | | | | | [address] | | | | + + + [...] | | | | | [place] [address] | | | | + + + + + + | Triglycerid | 37Comment: Testing | mg/dL | EXTERNAL | | | es | performed at [facility], [address] | | LAB | | | | [address], | | | | | | [place] [address] | | | | + + + + + + | HDL | 35 (L)Comment: Testing | mg/dL | EXTERNAL | | | | performed at [facility], [address] | | LAB | | | | [address], | | | | | | [place] [address] | | | | + + + + + + | LDL, | 67Comment: Testing | mg/dL | EXTERNAL | | | Calculated | performed at [facility], [address] | | LAB | | | | [address], | | | | | | [place] [address] | | | | + + + [...] | | | | | [place] [address] | | | | + + + + + + | K | 3.4 (L)Comment: Testing | 3.5 - 4.9 | EXTERNAL | | | | performed at [facility], [address] | mmol/L | LAB | | | | [address], | | | | | | [place] [address] | | | | + + + + + + | Cl | 108Comment: Testing | 99 - 109 mmol/L | EXTERNAL | | | | performed at [facility], [address] | | LAB | | | | [address], | | | | | | [place] [address] | | | | + + + + + + | CO2 | 21 (L)Comment: Testing | 23 - 32 mmol/L | EXTERNAL | | | | performed at [facility], [address] | | LAB | | | | [address], | | | | | | [place] [address] | | | | + + + + + + | Anion Gap | 12Comment: Testing | 5 - 20 mmol/L | EXTERNAL | | | | performed at [facility], [address] | | LAB | | | | [address], | | | | | | [place] [address] | | | | + + + + + + | Glucose, | 107 (H)Comment: Testing | 65 - 99 mg/dL | EXTERNAL | | | Fasting | performed at [facility], [address] | | LAB | | | | [address], | | | | | | [place] [address] | | | | + + + + + + | BUN | 15Comment: Testing | 8 - 25 mg/dL | EXTERNAL | | | | performed at [facility], [address] | | LAB | | | | [address], | | | | | | [place] [address] | | | | + + + + + + | Creatinine | 0.74Comment: Testing | 0.70 - 1.30 | EXTERNAL | | | | performed at [facility], [address] | mg/dL | LAB | | | | [address], | | | | | | [place] [address] | | | | + + + + + + | BUN/Creatin | 20Comment: Testing | | EXTERNAL | | | ine Ratio | performed at [facility], [address] | | LAB | | | | [address], | | | | | | [place] [address] | | | | + + + + + + | Calcium | 8.9Comment: Testing | 8.5 - 10.2 | EXTERNAL | | | | performed at [facility], [address] | mg/dL | LAB | | | | [address], | | | | | | [place] [address] | | | | + + + + + + | Protein, | 6.1 (L)Comment: Testing | 6.3 - 8.2 g/dL | EXTERNAL | | | Total | performed at [facility], [address] | | LAB | | | | [address], | | | | | | [place] [address] | | | | + + + + + + | Albumin | 4.0Comment: Testing | 3.6 - 5.0 g/dL | EXTERNAL | | | | performed at [facility], [address] | | LAB | | | | [address], | | | | | | [place] [address] | | | | + + + + + + | Globulin | 2.1Comment: Testing | 1.3 - 4.9 g/dL | EXTERNAL | | | | performed at [facility], [address] | | LAB | | | | [address], | | | | | | [place] [address] | | | | + + + + + + | A/G Ratio | 1.9Comment: Testing | 1.0 - 2.4 | EXTERNAL | | | | performed at [facility], [address] | | LAB | | | | [address], | | | | | | [place] [address] | | | | + + + + + + | Bilirubin | 1.4Comment: Testing | 0.1 - 1.5 mg/dL | EXTERNAL | | | Total | performed at [facility], [address] | | LAB | | | | [address], | | | | | | [place] [address] | | | | + + + + + + | ALP, | 46Comment: Testing | 35 - 115 U/L | EXTERNAL | | | External | performed at [facility], [address] | | LAB | | | | [address], | | | | | | [place] [address] | | | | + + + + + + | AST | 31Comment: Testing | 10 - 45 U/L | EXTERNAL | | | | performed at [facility], [address] | | LAB | | | | [address], | | | | | | [place] [address] | | | | + + + + + + | ALT | 27Comment: Testing | 10 - 65 U/L | EXTERNAL | | | | performed at [facility], [address] | | LAB | | | | [address], | | | | | | [place] [address] | | | | + + + [...] | | | | | | at [facility], [address] | | | | | | [address], | | | | | | [place] [address] | | | | + + + [...] + + | Historically converted procedure from [facility] | EXTERNAL LAB | + + [...] EXTERNAL | | | | performed at [facility];[address] | | LAB | | | | [address] [facility];[place], [place] | | | | | | [address] | | | | + + + [...] | | | | | performed at [facility];[address] | | | | | | [address];[place], [place] | | | | | | [address] | | | | + + + [...] EXTERNAL | | | | performed at [facility];[address] | | LAB | | | | [address];[place], [place] | | | | | | [address] | | | | + + + [...] were | | | performed using the [employer] 3-D software and sent to PACS. Oral | | | Contrast: None IV contrast: 100 mL IsoVue 370 COMPARISON: None. | | | FINDINGS: CHEST: The way inspector view shows a pacemaker via left | [...] reconstructions were performed | | using the [employer] 3-D software and sent to PACS. Oral Contrast: NoneIV contrast: 100 | | mL IsoVue 370 COMPARISON:None. FINDINGS: CHEST: The way inspector view shows a pacemaker via | | [...] EXTERNAL | | | | performed at [facility];[address] | | LAB | | | | [address];[place] | | | | | | [address] | | | | + + + + + -+ | Non- | 5.19Comment: Testing | 4.20 - 5.70 | EXTERNAL | | | Red Blood | performed at [facility];[address] | M/uL | LAB | | | Cells | [address];[place] | | | | | Counted | [address] | | | | + + + + + -+ | Hemoglobin | 16.8Comment: Testing | 13.2 - 17.0 | EXTERNAL | | | | performed at [facility];[address] | g/dL | LAB | | | | [address];[place] | | | | | | [address] | | | | + + + + + -+ | Hematocrit, | 49.5Comment: Testing | 39.0 - 50.0 % | EXTERNAL | | | POC | performed at [facility];[address] | | LAB | | | | [address];[place] | | | | | | [address] | | | | + + + + + -+ | MCV | 95.4Comment: Testing | 80.0 - 100.0 fl | EXTERNAL | | | | performed at [facility];[address] | | LAB | | | | [address];[place] | | | | | | [address] | | | | + + + + + -+ | MCH | 32.4Comment: Testing | 27.0 - 34.0 pg | EXTERNAL | | | | performed at [facility];[address] | | LAB | | | | [address];[place] | | | | | | [address] | | | | + + + + + -+ | MCHC | 34.0Comment: Testing | 32.0 - 35.5 | EXTERNAL | | | | performed at [facility];[address] | g/dL | LAB | | | | [address];[place] | | | | | | [address] | | | | + + + + + -+ | RDW-CV | 46.8Comment: Testing | 37 - 53 fl | EXTERNAL | | | | performed at [facility];[address] | | LAB | | | | [address];[place] | | | | | | [address] | | | | + + + + + -+ | Platelet | 179Comment: Testing | 150 - 400 K/uL | EXTERNAL | | | Count | performed at [facility];[address] | | LAB | | | Plasma | [address];[place] | | | | | | [address] | | | | + + + + + -+ | MPV | 8.6Comment: Testing | fl | EXTERNAL | | | | performed at [facility];[address] | | LAB | | | | [address];[place] | | | | | | [address] | | | | + + + + + -+ | Differentia | AUTOMATEDComment: | | EXTERNAL | | | l Type | Testing performed at | | LAB | | | | [facility];[address] | | | | | | [address];[place] [address] | | | | + + + + + -+ | % Segmented | 62.4Comment: Testing | % | EXTERNAL | | | | performed at [facility];[address] | | LAB | | | Neutrophils | [address];[place] | | | | | | [address] | | | | + + + + + -+ | % | 26.3Comment: Testing | % | EXTERNAL | | | Lymphocytes | performed at [facility];[address] | | LAB | | | | [address];[place] | | | | | | [address] | | | | + + + + + -+ | % Monocytes | 10.3Comment: Testing | % | EXTERNAL | | | | performed at [facility];[address] | | LAB | | | | [address];[place] | | | | | | [address] | | | | + + + + + -+ | % | 0.5Comment: Testing | % | EXTERNAL | | | Eosinophils | performed at [facility];[address] | | LAB | | | | [address];[place] | | | | | | [address] | | | | + + + + + -+ | % Basophils | 0.5Comment: Testing | % | EXTERNAL | | | | performed at [facility];[address] | | LAB | | | | [address];[place] | | | | | | [address] | | | | + + + + + -+ | Absolute | 6.3Comment: Testing | 1.9 - 7.4 K/uL | EXTERNAL | | | Segmented | performed at [facility];[address] | | LAB | | | Neutrophils | [address];[place] | | | | | | [address] | | | | + + + + + -+ | Absolute | 2.7Comment: Testing | 1.0 - 3.9 K/uL | EXTERNAL | | | Lymphocytes | performed at [facility];888 | | LAB | | | | [address];[place] | | | | | | [address] | | | | + + + + + -+ | Absolute | 1.0 (H)Comment: Testing | 0 - 0.8 K/uL | EXTERNAL | | | Monocytes | performed at [facility];[address] | | LAB | | | | [address];[place] | | | | | | [address] | | | | + + + + + -+ | Absolute | 0.0Comment: Testing | 0 - 0.5 K/uL | EXTERNAL | | | Eosinophils | performed at [facility];[address] | | LAB | | | | [address];[place] | | | | | | [address] | | | | + + + + + -+ | Absolute | 0.1Comment: Testing | 0 - 0.1 K/uL | EXTERNAL | | | Basophils | performed at [facility];[address] | | LAB | | | | [address];[place] | | | | | | [address] | | | | + + + + + -+ | Na | 139Comment: Testing | 135 - 143 | EXTERNAL | | | | performed at [facility];888 | mmol/L | LAB | | | | [address];[place] | | | | | | [address] | | | | + + + + + -+ | K | 3.4 (L)Comment: Testing | 3.5 - 4.9 | EXTERNAL | | | | performed at [facility];888 | mmol/L | LAB | | | | [address];[place] | | | | | | [address] | | | | + + + + + -+ | Cl | 108Comment: Testing | 99 - 109 mmol/L | EXTERNAL | | | | performed at [facility];[address] | | LAB | | | | [address];[place] | | | | | | [address] | | | | + + + + + -+ | CO2 | 21 (L)Comment: Testing | 23 - 32 mmol/L | EXTERNAL | | | | performed at [facility];[address] | | LAB | | | | [address];[place] | | | | | | [address] | | | | + + + + + -+ | Anion Gap | 14Comment: Testing | 5 - 20 mmol/L | EXTERNAL | | | | performed at [facility];[address] | | LAB | | | | [address];[place] | | | | | | [address] | | | | + + + + + -+ | Glucose, | 124 (H)Comment: Testing | 65 - 99 mg/dL | EXTERNAL | | | Fasting | performed at [facility];[address] | | LAB | | | | [address];[place] | | | | | | [address] | | | | + + + + + -+ | BUN | 20Comment: Testing | 8 - 25 mg/dL | EXTERNAL | | | | performed at [facility];[address] | | LAB | | | | [address];[place] | | | | | | [address] | | | | + + + + + -+ | Creatinine | 0.97Comment: Testing | 0.70 - 1.30 | EXTERNAL | | | | performed at [facility];888 | mg/dL | LAB | | | | [address];[place] | | | | | | [address] | | | | + + + + + -+ | BUN/Creatin | 21Comment: Testing | | EXTERNAL | | | ine Ratio | performed at [facility];888 | | LAB | | | | [address];[place] | | | | | | [address] | | | | + + + + + -+ | Calcium | 8.7Comment: Testing | 8.5 - 10.2 | EXTERNAL | | | | performed at [facility];888 | mg/dL | LAB | | | | [address];[place] | | | | | | [address] | | | | + + + + + -+ | Protein, | 7.6Comment: Testing | 6.3 - 8.2 g/dL | EXTERNAL | | | Total | performed at [facility];[address] | | LAB | | | | [address];[place] | | | | | | [address] | | | | + + + + + -+ | Albumin | 4.2Comment: Testing | 3.6 - 5.0 g/dL | EXTERNAL | | | | performed at [facility];[address] | | LAB | | | | [address];[place] | | | | | | [address] | | | | + + + + + -+ | Globulin | 3.4Comment: Testing | 1.3 - 4.9 g/dL | EXTERNAL | | | | performed at [facility];[address] | | LAB | | | | [address];[place] | | | | | | [address] | | | | + + + + + -+ | A/G Ratio | 1.2Comment: Testing | 1.0 - 2.4 | EXTERNAL | | | | performed at [facility];[address] | | LAB | | | | [address];[place] | | | | | | [address] | | | | + + + + + -+ | Bilirubin | 1.1Comment: Testing | 0.1 - 1.5 mg/dL | EXTERNAL | | | Total | performed at [facility];[address] | | LAB | | | | [address];[place] | | | | | | [address] | | | | + + + + + -+ | ALP, | 77Comment: Testing | 35 - 115 U/L | EXTERNAL | | | External | performed at [facility];[address] | | LAB | | | | [address];[place] | | | | | | [address] | | | | + + + + + -+ | AST | 35Comment: Testing | 10 - 45 U/L | EXTERNAL | | | | performed at [facility];[address] | | LAB | | | | [address];[place] | | | | | | [address] | | | | + + + + + -+ | ALT | 43Comment: Testing | 10 - 65 U/L | EXTERNAL | | | | performed at [facility];[address] | | LAB | | | | [address];[place] | | | | | | [address] | | | | + + + [...] | | | | | | at [facility];[address] | | | | | | [address];[place] [address] | | | | + + + + + -+ | CK, Total | 510 (H)Comment: Testing | 55 - 400 U/L | EXTERNAL | | | | performed at [facility];888 | | LAB | | | | [address];[place] | | | | | | [address] | | | | + + + [...] | | | | | performed at [facility];[address] | | | | | | [address];[place] | | | | | | [address] | | | | + + + + + -+ | aPTT, | 24Comment: Testing | 23 - 32 seconds | EXTERNAL | | | Patient | performed at [facility];[address] | | LAB | | | | [address];[place] | | | | | | [address] | | | | + + + + + -+ | CK-MB | 9.3 (H)Comment: Testing | 0.5 - 3.6 ng/mL | EXTERNAL | | | | performed at [facility];[address] | | LAB | | | | [address];[place] | | | | | | [address] | | | | + + [...] EXTERNAL | | | | performed at [facility];888 | uIU/mL | LAB | | | | [address];[place] | | | | | | [address] | | | | + + + [...] EXTERNAL | | | | performed at [facility] | | LAB | | | | [facility];[place], [place] | | | | | | [address] | | | | + + + [...] (500), | | | | | | clinical editor TERESE NINA (2) | | | | | | on 02/27/2014 6:56:17 PM | | | | + + + + + + + + | Specimen | + + | | + + + + + | Narrative | Performed At | + + + | Historically converted procedure from [facility] | EXTERNAL LAB | + + [...] | Mild dehydration Dehydration | + + | Remote Device Interrogation [...]
--- OUTSIDE RECORDS SUMMARY | ~2020-08-06 | XMS | Encounter Summary ---
Demographics + + + | Address | [address] | | | [place] [address] | + + + | Home Phone [...] Team Providers + +------+ + | Care Pheresis Specialist Name | Role | Phone | [...] + | 11/26/ | Telephone | [facility] [place] | Silvia, | Appointment (Needs | | 2018 | | CARDIOLOGY [address] | PARISA [address] | rescheduled) | | | | [place], | [place], | | | | | [place] [address] | [place] [address] | | | | | [phone] | [phone] | | | | | | | [...] 9:06 AM PSTPatient called back to resched aster appointment. Patient is now scheduled to come [...] | Monitor | | MD [address] | Interrogation | | | | | [place], | (Primary Dx); | | | | | [place] [address] | Pacemaker; | | | | | [phone] | Sinoatrial node | | | | | | dysfunction (HCC) | | | | | | with symptomatic | | | | | | bradycardia | +--------+ + + + + | 08/21/ | Implant | Cardiology | Daljit Singletary, | Remote Device | | 2019 | Monitor | | MD [address] | Interrogation | | | | | [place], | (Primary Dx); | | | | | [place] [address] | Pacemaker; | | | | | [phone] | Sinoatrial node | | | | | | dysfunction (HCC) | | | | | | with symptomatic | | | | | | bradycardia | +--------+ + + + + | 08/21/ | Implant | Cardiology | Daljit Singletary, | Remote Device | | 2019 | Monitor | | MD [address] | Interrogation | | | | | [place], | (Primary Dx); | | | | | [place] [address] | Pacemaker; | | | | | [phone] | Sinoatrial node | | | | | | dysfunction (HCC) | | | | | | with symptomatic | | | | | | bradycardia | +--------+ + + + + | 08/21/ | Implant | Cardiology | Daljit Singletary, | Remote Device | | 2019 | Monitor | | MD [address] | Interrogation | | | | | [place], | (Primary Dx); | | | | | [place] [address] | Pacemaker; | | | | | [phone] | Sinoatrial node | | | | | | dysfunction (HCC) | | | | | | with symptomatic | | | | | | bradycardia | +--------+ + + + + | 08/21/ | Implant | Cardiology | Daljit Singletary, | Remote Device | | 2020 | Monitor | | MD [address] | Interrogation | | | | | [place], | (Primary Dx); | | | | | [place] [address] | Pacemaker; | | | | | [phone] | Sinoatrial node | | | | [...] | | | | | | [place] [address] | | | | | | [phone] | | | | | | | | +--------+ + + + + documented as of this encounter Visit Diagnoses Not on filedocumented in this encounter"
--- OUTSIDE RECORDS SUMMARY | ~2020-08-06 | XMS | Encounter Summary ---
Demographics + + + | Address | [address] | | | [place] [address] | + + + | Home Phone [...] Author | [facility] | | | [...] Providers + +------+ + | Care Hospice Manager Name | Role | Phone | + +------+ + | Michael Amanda DO | PCP | | + +------+ + Encounter Details +--------+ + + + + | Date | Type | Department | Care Team | Description | +--------+ + + + + | 10/01/ | Hospital | [facility] | Mary Bradshaw | | | 2013 | Encounter | [facility] | Guy Larkin MD | | | | | [address] [place] | [address] | | | | | [place], [place] | [place], [place] | | | | | [address] | [address] | | | | | [phone] | | | +--------+ + + + [...] + + +---------+ + + | [place]-3 Fatty | CAPS, one capsule by [...] Interrogation | | | | | [place], | (Primary Dx); | | | | | [place] [address] | Pacemaker; | | | | | [phone] | Sinoatrial node | | | | | | dysfunction (HCC) | | | | | | with symptomatic | | | | | | bradycardia | +--------+ + + + + | 08/21/ | Implant | Cardiology | Daljit Singletary, | Remote Device | | 2019 | Monitor | | MD [address] | Interrogation | | | | | [place], | (Primary Dx); | | | | | [place] [address] | Pacemaker; | | | | | [phone] | Sinoatrial node | | | | | | dysfunction (HCC) | | | | | | with symptomatic | | | | | | bradycardia | +--------+ + + + + | 08/21/ | Implant | Cardiology | SunshineDaljit villarreal, | Remote Device | | 2019 | Monitor | | MD [address] | Interrogation | | | | | [place], | (Primary Dx); | | | | | [place] [address] | Pacemaker; | | | | | [phone] | Sinoatrial node | | | | | | dysfunction (HCC) | | | | | | with symptomatic | | | | | | bradycardia | +--------+ + + + + | 08/21/ | Implant | Cardiology | Daljit Singletary, | Remote Device | | 2019 | Monitor | | MD [address] | Interrogation | | | | | [place], | (Primary Dx); | | | | | [place] [address] | Pacemaker; | | | | | [phone] | Sinoatrial node | | | | | | dysfunction (HCC) | | | | | | with symptomatic | | | | | | bradycardia | +--------+ + + + + | 08/21/ | Implant | Cardiology | Daljit Singletary, | Remote Device | | 2020 | Monitor | | MD [address] | Interrogation | | | | | [place], | (Primary Dx); | | | | | [place] [address] | Pacemaker; | | | | | [phone] | Sinoatrial node | | | | [...] | | | | | | [place] [address] | | | | | | [phone] | | | | | | | [...] + | MISCELLANEOUS LAB | | | [phone] | + +---------+ + + | MISCELANIOUS LAB | | | [phone] | + +---------+ + + documented in this encounter Visit Diagnoses Not on filedocumented in this encounter"
--- OUTSIDE RECORDS SUMMARY | ~2020-08-06 | XMS | Encounter Summary ---
Demographics + + + | Address | [address] | | | [place] [address] | + + + | Home Phone [...] Providers + +------+ + | Care Superintendent Drilling And Production Name | Role | Phone | [...] | 03/24/ | Telephone | [facility] | Silvia, | Other (chest pain) | | 2018 | | CARDIOLOGY [address] | Janeen, TOWER OBSERVER [address] | | | | | [place], | [place], | | | | | [place] [address] | [place] [address] | | | | | [phone] | [phone] | | | | | | | [...] | Monitor | | MD [address] [place] | Interrogation | | | | | [place], | (Primary Dx); | | | | | [place] [address] | Pacemaker; | | | | | [phone] | Sinoatrial node | | | | | | dysfunction (HCC) | | | | | | with symptomatic | | | | | | bradycardia | +--------+ + + + + | 08/21/ | Implant | Cardiology | Daljit Singletary, | Remote Device | | 2020 | Monitor | | MD [address] [place] | Interrogation | | | | | [place], | (Primary Dx); | | | | | [place] [address] | Pacemaker; | | | | | [phone] | Sinoatrial node | | | | | | dysfunction (HCC) | | | | | | with symptomatic | | | | | | bradycardia | +--------+ + + + + | 08/21/ | Implant | Cardiology | Daljit Singletary, | Remote Device | | 2019 | Monitor | | MD [address] [place] | Interrogation | | | | | [place], | (Primary Dx); | | | | | [place] [address] | Pacemaker; | | | | | [phone] | Sinoatrial node | | | | | | dysfunction (HCC) | | | | | | with symptomatic | | | | | | bradycardia | +--------+ + + + + | 08/21/ | Implant | Cardiology | Daljit Singletary, | Remote Device | | 2019 | Monitor | | MD [address] [place] | Interrogation | | | | | [place], | (Primary Dx); | | | | | [place] [address] | Pacemaker; | | | | | [phone] | Sinoatrial node | | | | | | dysfunction (HCC) | | | | | | with symptomatic | | | | | | bradycardia | +--------+ + + + + | 08/21/ | Implant | Cardiology | Daljit Singletary, | Remote Device | | 2019 | Monitor | | MD [address] [place] | Interrogation | | | | | [place], | (Primary Dx); | | | | | [place] [address] | Pacemaker; | | | | | [phone] | Sinoatrial node | | | | [...] | | | | | | [place] [address] | | | | | | [phone] | | | | | | | | +--------+ + + + + documented as of this encounter Visit Diagnoses Not on filedocumented in this encounter"
--- OUTSIDE RECORDS SUMMARY | ~2020-08-06 | XMS | Encounter Summary ---
Demographics + + + | Address | [address] | | | [place] [address] | + + + | Home Phone [...] Team Providers + +------+ + | Care Quantity Surveyor Name | Role | Phone | + +------+ + | Kirk French MD | PCP | | + +------+ + Reason for Visit +--------+--------+ + | Reason | Onset | Comments | | | Date | | +--------+--------+ + | Other | 04/10/ | | | | 2019 | | +--------+--------+ + Encounter Details +--------+ + + + + | Date | Type | Department | Care Team | Description | +--------+ + + + + | 04/10/ | Telephone | [facility] | Matthew Uriarte | Other | | 2019 | | [address] | MD Tawanna [address] | | | | | [place] | [address] | | | | | [address] | [place], [place] | | | | | [phone] | [address] | | | | | | | | | | | | (Fax) | | +--------+ + + + + [...] 1:53 PM Irasema Uriarte notified . [facility] Kira [facility] - [...] otherwise, he'll see Dr Uriarte morning [facility] as scheduled. Electronical ly signed by Kira [...] FROM DR. FIGUEROA NURSE. PLEASE ADVISE AT [phone].Electronically sign ed by Renetta Dewitt at 04/10/2019 [...] Dx); | | | | | [place] [address] | Pacemaker; | | | | | [phone] | Sinoatrial node | | | | | | dysfunction (HCC) | | | | | | with symptomatic | | | | | | bradycardia | +--------+ + + + + | 08/21/ | Implant | Cardiology | Daljit Singletary, | Remote Device | | 2019 | Monitor | | MD [address] | Interrogation | | | | | [place], | (Primary Dx); | | | | | [place] [address] | Pacemaker; | | | | | [phone] | Sinoatrial node | | | | | | dysfunction (HCC) | | | | | | with symptomatic | | | | | | bradycardia | +--------+ + + + + | 08/21/ | Implant | Cardiology | Daljit Singletary, | Remote Device | | 2019 | Monitor | | MD [address] | Interrogation | | | | | [place], | (Primary Dx); | | | | | [place] [address] | Pacemaker; | | | | | [phone] | Sinoatrial node | | | | | | dysfunction (HCC) | | | | | | with symptomatic | | | | | | bradycardia | +--------+ + + + + | 08/21/ | Implant | Cardiology | Daljit Singletary, | Remote Device | | 2020 | Monitor | | MD [address] | Interrogation | | | | | [place], | (Primary Dx); | | | | | [place] [address] | Pacemaker; | | | | | [phone] | Sinoatrial node | | | | | | dysfunction (HCC) | | | | | | with symptomatic | | | | | | bradycardia | +--------+ + + + + | 08/21/ | Implant | Cardiology | Daljit Singletary, | Remote Device | 2019 | Monitor | | [address] | Interrogation | | | | | [place], | (Primary Dx); | | | | | [place] [address] | Pacemaker; | | | | | [phone] | Sinoatrial node | | | | [...] W | | | | | | [place], | | | | | | [place] [address] | | | | | | [phone] | | | | | | | | +--------+ + + + + documented as of this encounter Visit Diagnoses Not on filedocumented in this encounter"
--- OUTSIDE RECORDS SUMMARY | ~2020-08-06 | XMS | Encounter Summary ---
Demographics + + + | Address | [address] | | | [place] [address] | + + + | Home Phone [...] Team Providers + +------+ + | Care Obgyn Specialist Name | Role | Phone | [...] [address] | | | | | [place], | [place], | | | | | [place] [address] | [place] [address] | | | | | [phone] | [phone] | | | | | | | [...] 2019 | Monitor | | [address] | Interrogation | | | | | [place], | (Primary Dx); | | | | | [place] [address] | Pacemaker; | | | | | [phone] | Sinoatrial node | | | | | | dysfunction (HCC) | | | | | | with symptomatic | | | | | | bradycardia | +--------+ + + + + | 08/21/ | Implant | Cardiology | Daljit Singletary, | Remote Device | | 2020 | Monitor | | MD [address] | Interrogation | | | | | [place], | (Primary Dx); | | | | | [place] [address] | Pacemaker; | | | | | [phone] | Sinoatrial node | | | | | | dysfunction (HCC) | | | | | | with symptomatic | | | | | | bradycardia | +--------+ + + + + | 08/21/ | Implant | Cardiology | Daljit Singletary, | Remote Device | | 2019 | Monitor | | MD [address] | Interrogation | | | | | [place], | (Primary Dx); | | | | | [place] [address] | Pacemaker; | | | | | [phone] | Sinoatrial node | | | | | | dysfunction (HCC) | | | | | | with symptomatic | | | | | | bradycardia | +--------+ + + + + | 08/21/ | Implant | Cardiology | Daljit Singletary, | Remote Device | | 2019 | Monitor | | MD [address] | Interrogation | | | | | [place], | (Primary Dx); | | | | | [place] [address] | Pacemaker; | | | | | [phone] | Sinoatrial node | | | | | | dysfunction (HCC) | | | | | | with symptomatic | | | | | | bradycardia | +--------+ + + + + | 08/21/ | Implant | Cardiology | Daljit Singletary, | Remote Device | | 2019 | Monitor | | MD [address] | Interrogation | | | | | [facility] [place], | (Primary Dx); | | | | | [place] [address] | Pacemaker; | | | | | [phone] | Sinoatrial node | | | | [...] | | | | | | [place] [address] | | | | | | [phone] | | | | | | | [...]
--- OUTSIDE RECORDS SUMMARY | ~2020-08-06 | XMS | Encounter Summary ---
Demographics + + + | Address | [address] | | | [place] [address] | + + + | Home Phone [...] Team Providers + +------+ + | Care Bracer Name | Role | Phone | + [...] | +--------+ + + + + | Telephone | [facility] [place] | Gonzalo Angela, | Other (RECORDS) | | 2012 | | CARDIOLOGY [address] | ENGLISH AND READING INSTRUCTOR [address] | | | | | [place], | [place] [facility], [place] | | | | | [place] [address] | [address] | | | | | [phone] | | | +--------+ + + + [...] PDTRecords sent to Dr Adrian leblanc at [facility] in [place]: Demographics, Chart notes 09-05-13, Echo 12-30-12 EKG 09-05-13, 04-24-13 Labs 08-08-13 [facility] 04-03-13, 01-30-13, 02-17-13 They will contact [...] Interrogation | | | | | [place], | (Primary Dx); | | | | | [place] [address] | Pacemaker; | | | | | [phone] | Sinoatrial node | | | | | | dysfunction (HCC) | | | | | | with symptomatic | | | | | | bradycardia | +--------+ + + + + | 08/21/ | Implant | Cardiology | Daljit Singletary, | Remote Device | | 2019 | Monitor | | MD [address] | Interrogation | | | | | [place], | (Primary Dx); | | | | | [place] [address] | Pacemaker; | | | | | [phone] | Sinoatrial node | | | | | | dysfunction (HCC) | | | | | | with symptomatic | | | | | | bradycardia | +--------+ + + + + | 08/21/ | Implant | Cardiology | Daljit Singletary, | Remote Device | | 2019 | Monitor | | MD [address] | Interrogation | | | | | [place], | (Primary Dx); | | | | | [place] [address] | Pacemaker; | | | | | [phone] | Sinoatrial node | | | | | | dysfunction (HCC) | | | | | | with symptomatic | | | | | | bradycardia | +--------+ + + + + | 08/21/ | Implant | Cardiology | Daljit Singletary, | Remote Device | | 2019 | Monitor | | MD [address] | Interrogation | | | | | [place], | (Primary Dx); | | | | | [place] [address] | Pacemaker; | | | | | [phone] | Sinoatrial node | | | | | | dysfunction (HCC) | | | | | | with symptomatic | | | | | | bradycardia | +--------+ + + + + | 08/21/ | Implant | Cardiology | Daljit Singletary, | Remote Device | | 2019 | Monitor | | [address] | Interrogation | | | | | [place], | (Primary Dx); | | | | | [place] [address] | Pacemaker; | | | | | [phone] | Sinoatrial node | | | | [...] | 2019 | Visit | | Janeen, ENGLISH AND READING INSTRUCTOR [address] | | | | | | [place], | | | | | | [place] [address] | | | | | | [phone] | | | | | | | | +--------+ + + + + documented as of this encounter Visit Diagnoses Not on filedocumented in this encounter"
--- OUTSIDE RECORDS SUMMARY | ~2020-08-06 | XMS | Encounter Summary ---
Demographics + + + | Address | [address] | | | [place] [address] | + + + | Home Phone [...] + +------+ + | Care Biomedical Engineering Technician Name | Role | Phone [...] Provider Unknown | | | | | [place], [place] | [phone] | | | | | [address] | | | | | | [phone] | | | +--------+ + + + [...] + + + +---------+ + + | [place]-3 Fatty | CAPS, one capsule by | [...] Dx); | | | | | [place] [address] | Pacemaker; | | | | | [phone] | Sinoatrial node | | | | [...] Dx); | | | | | [place] [address] | Pacemaker; | | | | | [phone] | Sinoatrial node | | | | | | dysfunction (HCC) | | | | | | with symptomatic | | | | | | bradycardia | +--------+ + + + + | 08/21/ | Implant | Cardiology | Daljit Singletary, | Remote Device | | 2019 | Monitor | | MD [address] | Interrogation | | | | | [place], | (Primary Dx); | | | | | [place] [address] | Pacemaker; | | | | | [phone] | Sinoatrial node | | | | | | dysfunction (HCC) | | | | | | with symptomatic | | | | | | bradycardia | +--------+ + + + + | 08/21/ | Implant | Cardiology | Daljit Singletary, | Remote Device | | 2020 | Monitor | | MD [address] | Interrogation | | | | | [place], | (Primary Dx); | | | | | [place] [address] | Pacemaker; | | | | | [phone] | Sinoatrial node | | | | | | dysfunction (HCC) | | | | | | with symptomatic | | | | | | bradycardia | +--------+ + + + + | 08/21/ | Implant | Cardiology | Daljit Singletary, | Remote Device | | 2019 | Monitor | | [address] | Interrogation | | | | | [facility], | (Primary Dx); | | | | | [place] [address] | Pacemaker; | | | | | [phone] | Sinoatrial node | | | | [...] [address] | | | | | [address] [place], | | | | | | [place] [address] | | | | | | [phone] | | | | | | | [...]
--- OUTSIDE RECORDS SUMMARY | ~2020-08-06 | XMS | Encounter Summary ---
Demographics + + + | Address | [address] | | | [place] [address] | + + + | Home Phone [...] Providers + +------+ + | Care Rn Recovery Name | Role | Phone | [...] + + | 06/25/ | Office | [facility] | Silvia, | SINUS BRADYCARDIA | | 2013 | Visit | CARDIOLOGY [address] | PARISA [address] | (Primary Dx); | | | | [place], | [place], | Symptomatic PVCs; | | | | [place] [address] | [place] [address] | Coronary artery | | | | [phone] | [phone] | disease; | | | | | [...] time, he was admitted over observation at [facility] for a chest pain. Aortogram [...] needed for Chest pain. 25 tablet 12 [place]-3 Fatty Acids (SALMON OIL-1000 PO) CAPS, one capsule by mouth daily twice daily ONE TOUCH DELICA LANCETS [facility] Check glucose as needed for hypoglycemia 100 [...] HGBEX 16.1 01/25/2014 I reviewed records from [facility] for emergency department visit o [...] yard. He is in class I-II of [place] [employer] funct ional class. There are [...] to go back in 3 days to [place] for an attempt of ablation under general [...] dizziness. He is in class I-II of [place] [employer] functional class. There are no [...] made to ensure accuracy; however, inadvertent computerized environmental issues instructor errors may be pre sent. Electronically [...] Monitor | | MD [address] [place] | Interrogation | | | | | [place], | (Primary Dx); | | | | | [place] [address] | Pacemaker; | | | | | [phone] | Sinoatrial node | | | | | | dysfunction (HCC) | | | | | | with symptomatic | | | | | | bradycardia | +--------+ + + + + | 08/21/ | Implant | Cardiology | Daljit Singletary, | Remote Device | | 2020 | Monitor | | MD [address] [place] | Interrogation | | | | | [place], | (Primary Dx); | | | | | [place] [address] | Pacemaker; | | | | | [phone] | Sinoatrial node | | | | | | dysfunction (HCC) | | | | | | with symptomatic | | | | | | bradycardia | +--------+ + + + + | 08/21/ | Implant | Cardiology | Daljit Singletary, | Remote Device | | 2019 | Monitor | | MD [address] [place] | Interrogation | | | | | [place], | (Primary Dx); | | | | | [place] [address] | Pacemaker; | | | | | [phone] | Sinoatrial node | | | | | | dysfunction (HCC) | | | | | | with symptomatic | | | | | | bradycardia | +--------+ + + + + | 08/21/ | Implant | Cardiology | Daljit Singletary, | Remote Device | | 2019 | Monitor | | MD [address] [place] | Interrogation | | | | | [place], | (Primary Dx); | | | | | [place] [address] | Pacemaker; | | | | | [phone] | Sinoatrial node | | | | | | dysfunction (HCC) | | | | | | with symptomatic | | | | | | bradycardia | +--------+ + + + + | 08/21/ | Implant | Cardiology | Daljit Singletary, | Remote Device | | 2019 | Monitor | | MD [address] [place] | Interrogation | | | | | [facility] [place], | (Primary Dx); | | | | | [place] [address] | Pacemaker; | | | | | [phone] | Sinoatrial node | | | | [...] | | | | | | [place] [address] | | | | | | [phone] | | | | | | | | +--------+ + + + + documented as of this encounter Visit Diagnoses + + | Diagnosis | + + | SINUS BRADYCARDIA - Primary Sinoatrial node dysfunction | + + | Symptomatic PVCs Other premature beats | + + | Coronary artery disease Coronary atherosclerosis of unspecified type of vessel, | | salamatof or graft | + + | Hypertension [...]
--- OUTSIDE RECORDS SUMMARY | ~2020-08-06 | XMS | Encounter Summary ---
Demographics + + + | Address | [address] | | | [place] [address] | + + + | Home Phone [...] Providers + +------+ + | Care Contract Officer Name | Role | Phone | [...] | initial encounter; | | | | [place], [place] | | Elevated blood | | | | [address] | | pressure reading; | | | | [phone] | | Numbness and | | | [...] + + + +---------+ + + | [place]-3 Fatty | CAPS, one capsule by | [...] 10/29/172129 Date of Service: 10/29/171410 Status: Signed Boat Oar Maker: Tor Reynolds MD (Physician) [facility] Department of Emergency Medicine 2:24 PM [...] and Advil, with some relief. PCP: SARAH D KALICHMAN Past Medical History Diagnosis Date Abdominal pain Anxiety and depression Back pain Bipolar 1 disorder (HCC) Bipolar 1 disorder (HCC) CAD (coronary artery disease), jackson artery transplanted heart Cannabis abuse Chronic neck [...] Laterality Date ABDOMINAL SURGERY adhesions removed APPENDECTOMY [facility] CARDIAC CATHETERIZATION HARDWARE REMOVAL KNEE ARTHROSCOPY Bilateral LASER ABLATION x3 PACEMAKER INSERTION SHOULDER SURGERY Bilateral Rotator Cuff Repairs SPINAL FUSION 4 Cervical fusions; [place] in [place] SPINAL FUSION 2 Lumbar Fusions; [place], [place], [place] SPINE SURGERY Prior to Admission [...] PRESCRIPTION, PRINT ONLY, CPAP machine 12/31/16 Sarah Frecnh MD glucose blood test strip Test up [...] education: 12 Occupational History Disabled Retired from [employer] Social History Main Topics Smoking status: [...] No sign o f infection to suggest 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 or PNA or UTI as cause [...] As needed [address] [facility] [address] [facility] Emergency Department Emergency Medicine If symptoms worsen [address] [address] [facility] Orthopedics [place] Orth[facility] Surgery As needed [address] [facility] [address] Discharge Medications: Discharge Medication List as of 10/29/2017 2:44 PM Procedures Additional Documentation Procedures Attending Provider Note: Tor Clemente MD personally performed the services described i n this documentation, as scribed by Don Wilkinson in my presence, and it is both accurate an d complete. Chart Reviewed and Completed: 10/29/2017 9:30 PM Scribe: I Dmitriy Brandt, scribing for and in the presence of Tor Reynolds MD. Signed by: Dmitriy Brandt 10/29/2017 7:32 PM Tor Reynolds MD 10/29/172129 onversion Transactannie n, Provider Unknown - 10/29/2017 2:01 PM PST ED Notes by Jessica Arellano RN at 10/29/171400 Author: Jessica Arellano RN Service: (none) Author Type: Registered Nurse Filed: 10/29/171402 Date of Service: 10/29/171400 Status: Signed Boat Oar Maker: Jessica Arellano RN (Registered Nurse) 2 patient [...] Interrogation | | | | | [place], | (Primary Dx); | | | | | [place] [address] | Pacemaker; | | | | | [phone] | Sinoatrial node | | | | | | dysfunction (HCC) | | | | | | with symptomatic | | | | | | bradycardia | +--------+ + + + + | 08/21/ | Implant | Cardiology | Daljit Singletary, | Remote Device | | 2019 | Monitor | | MD [address] [place] | Interrogation | | | | | [place], | (Primary Dx); | | | | | [place] [address] | Pacemaker; | | | | | [phone] | Sinoatrial node | | | | [...] Interrogation | | | | | [place], | (Primary Dx); | | | | | [place] [address] | Pacemaker; | | | | | [phone] | Sinoatrial node | | | | | | dysfunction (HCC) | | | | | | with symptomatic | | | | | | bradycardia | +--------+ + + + + | 08/21/ | Implant | Cardiology | Daljit Singletary, | Remote Device | | 2019 | Monitor | | MD [address] [place] | Interrogation | | | | | [place], | (Primary Dx); | | | | | [place] [address] | Pacemaker; | | | | | [phone] | Sinoatrial node | | | | | | dysfunction (HCC) | | | | | | with symptomatic | | | | | | bradycardia | +--------+ + + + + | 08/21/ | Implant | Cardiology | Daljit Singletary, | Remote Device | | 2019 | Monitor | | MD [address] [place] | Interrogation | | | | | [place], | (Primary Dx); | | | | | [place] [address] | Pacemaker; | | | | | [phone] | Sinoatrial node | | | | [...] | | | | | | [place], | | | | | | [place] [address] | | | | | | [phone] | | | | | | | [...] Disturbance of skin sensation | + + | Remote Device Interrogation [...]
--- OUTSIDE RECORDS SUMMARY | ~2020-08-06 | XMS | Encounter Summary ---
Demographics + + + | Address | [address] | | | [place] [address] | + + + | Home Phone [...] + +------+ + | Care Local Company Intermodal Truck Driver Name | Role | Phone [...] + | 04/11/ | Telephone | [facility] | [place], | Other (not feeling | | 2013 | | CARDIOLOGY [address] | PARISA [place] [address] | well) | | | | [place], | [place], | | | | | [place] [address] | [place] [address] | | | | | [phone] | [phone] | | | | | | | [...] 12:15 elephone Encounter - Jay Webster Cert ME - 04/18/2014 9:28 AM PDTFormatting of this [...] what to do. I will co robbie Brandtelyn and then call him back. ...........................................Darlene haywood RN on 04/11/2014 at 11:55 documented in this encounter Plan of Treatment +--------+ + + + + | Date | Type | Specialty | Care Team | Description | +--------+ + + + + | 08/21/ | Implant | Cardiology | Daljit Singletary, | Remote Device | | 2019 | Monitor | | MD [address] [place] | Interrogation | | | | | [place], | (Primary Dx); | | | | | [place] [address] | Pacemaker; | | | | | [phone] | Sinoatrial node | | | | | | dysfunction (HCC) | | | | | | with symptomatic | | | | | | bradycardia | +--------+ + + + + | 08/21/ | Implant | Cardiology | Daljit Singletary, | Remote Device | | 2019 | Monitor | | MD [address] [place] | Interrogation | | | | | [place], | (Primary Dx); | | | | | [place] [address] | Pacemaker; | | | | | [phone] | Sinoatrial node | | | | | | dysfunction (HCC) | | | | | | with symptomatic | | | | | | bradycardia | +--------+ + + + + | 08/21/ | Implant | Cardiology | Daljit Singletary, | Remote Device | | 2020 | Monitor | | MD [address] [place] | Interrogation | | | | | [place], | (Primary Dx); | | | | | [place] [address] | Pacemaker; | | | | | [phone] | Sinoatrial node | | | | | | dysfunction (HCC) | | | | | | with symptomatic | | | | | | bradycardia | +--------+ + + + + | 08/21/ | Implant | Cardiology | Daljit Singletary, | Remote Device | | 2019 | Monitor | | MD [address] [place] | Interrogation | | | | | [place], | (Primary Dx); | | | | | [place] [address] | Pacemaker; | | | | | [phone] | Sinoatrial node | | | | | | dysfunction (HCC) | | | | | | with symptomatic | | | | | | bradycardia | +--------+ + + + + | 08/21/ | Implant | Cardiology | Daljit Singletary, | Remote Device | | 2019 | Monitor | | MD [address] [place] | Interrogation | | | | | [place], | (Primary Dx); | | | | | [place] [address] | Pacemaker; | | | | | [phone] | Sinoatrial node | | | | [...] | | | | | | [place] [address] | | | | | | [phone] | | | | | | | | +--------+ + + + + documented as of this encounter Visit Diagnoses Not on filedocumented in this encounter
--- OUTSIDE RECORDS SUMMARY | ~2020-08-06 | XMS | Encounter Summary ---
Demographics + + + | Address | [address] | | | [place] [address] | + + + | Home Phone [...] Providers + +------+ + | Care Aviation Ordnance Officer Name | Role | Phone | + +------+ + | Kirk French MD | PCP | | + +------+ + Encounter Details +--------+ + + + + | Date | Type | Department | Care Team | Description | +--------+ + + + + | 07/05/ | Hospital | [facility] | Conversion | Acute neck pain | | 2016 | Encounter | [facility] | Transaction, | | | | | [address] [place] | Provider Unknown | | | | | [address] [place], [place] | [phone] | | | | | [address] | | | | | | [phone] | Apolonia Ruano | | | | | | MD Shelly [address] | | | | | | [address] | | | | | | [place], [place] | | | | | | [address] | | | | | | [phone] | | | | | | | [...] + + + +---------+ + + | [place]-3 Fatty | CAPS, one capsule by [...] | Monitor | | MD [address] [place] | Interrogation | | | | | [place], | (Primary Dx); | | | | | [place] [address] | Pacemaker; | | | | | [phone] | Sinoatrial node | | | | | | dysfunction (HCC) | | | | | | with symptomatic | | | | | | bradycardia | +--------+ + + + + | 08/21/ | Implant | Cardiology | Daljit Singletary, | Remote Device | | 2019 | Monitor | | MD [address] [place] | Interrogation | | | | | [place], | (Primary Dx); | | | | | [place] [address] | Pacemaker; | | | | | [phone] | Sinoatrial node | | | | | | dysfunction (HCC) | | | | | | with symptomatic | | | | | | bradycardia | +--------+ + + + + | 08/21/ | Implant | Cardiology | Daljit Singletary, | Remote Device | | 2019 | Monitor | | MD [address] [place] | Interrogation | | | | | [place], | (Primary Dx); | | | | | [place] [address] | Pacemaker; | | | | | [phone] | Sinoatrial node | | | | | | dysfunction (HCC) | | | | | | with symptomatic | | | | | | bradycardia | +--------+ + + + + | 08/21/ | Implant | Cardiology | Daljit Singletary, | Remote Device | | 2019 | Monitor | | MD [address] [place] | Interrogation | | | | | [place], | (Primary Dx); | | | | | [place] [address] | Pacemaker; | | | | | [phone] | Sinoatrial node | | | | | | dysfunction (HCC) | | | | | | with symptomatic | | | | | | bradycardia | +--------+ + + + + | 08/21/ | Implant | Cardiology | Daljit Singletary, | Remote Device | | 2020 | Monitor | | MD [address] [place] | Interrogation | | | | | [place], | (Primary Dx); | | | | | [place] [address] | Pacemaker; | | | | | [phone] | Sinoatrial node | | | | [...] | | | | | | [place] [address] | | | | | | [phone] | | | | | | | [...] Acute neck pain Cervicalgia | + + | Remote Device [...]
--- OUTSIDE RECORDS SUMMARY | ~2020-08-06 | XMS | Encounter Summary ---
Demographics + + + | Address | [address] | | | [place] [address] | + + + | Home Phone [...] Providers + +------+ + | Care Band Tacker Name | Role | Phone | + +------+ + PCP | Unavailable | + +------+ + Encounter Details +--------+ + + + + | Date | Type | Department | Care Team | Description | +--------+ + + + + | 02/21/ | Hospital | [facility] | Cristy Braun | | | 2008 | Encounter | MED CTR EMERGENCY | MD Ronald [address] | | | | | [place] [address] | [facility], | | | | | [place] | [place] [address] | | | | | [address] | [phone] | | | | | [phone] | | | +--------+ + + + [...] 2019 | Monitor | | [address] [place] | Interrogation | | | | | [place], | (Primary Dx); | | | | | [place] [address] | Pacemaker; | | | | | [phone] | Sinoatrial node | | | | | | dysfunction (HCC) | | | | | | with symptomatic | | | | | | bradycardia | +--------+ + + + + | 08/21/ | Implant | Cardiology | Daljit Singletary, | Remote Device | | 2019 | Monitor | | MD [address] [place] | Interrogation | | | | | [place], | (Primary Dx); | | | | | [place] [address] | Pacemaker; | | | | | [phone] | Sinoatrial node | | | | | | dysfunction (HCC) | | | | | | with symptomatic | | | | | | bradycardia | +--------+ + + + + | 08/21/ | Implant | Cardiology | Daljit Singletary, | Remote Device | | 2020 | Monitor | | MD [address] [place] | Interrogation | | | | | [place], | (Primary Dx); | | | | | [place] [address] | Pacemaker; | | | | | [phone] | Sinoatrial node | | | | | | dysfunction ([facility]) | | | | | | with symptomatic | | | | | | bradycardia | +--------+ + + + + | 08/21/ | Implant | Cardiology | Daljit Singletary | Remote Device | | 2019 | Monitor | | MD [address] [place] | Interrogation | | | | | [place], | (Primary Dx); | | | | | [place] [address] | Pacemaker; | | | | | [phone] | Sinoatrial node | | | | | | dysfunction ([facility]) | | | | | | with symptomatic | | | | | | bradycardia | +--------+ + + + + | 08/21/ | Implant | Cardiology | Daljit Singletary, | Remote Device | | 2019 | Monitor | | MD [address] [place] | Interrogation | | | | | [place], | (Primary Dx); | | | | | [place] [address] | Pacemaker; | | | | | [phone] | Sinoatrial node | | | | [...] | | | | | | [place] [address] | | | | | | [phone] | | | | | | | | +--------+ + + + + documented as of this encounter Visit Diagnoses Not on filedocumented in this encounter"
--- OUTSIDE RECORDS SUMMARY | ~2020-08-06 | XMS | Encounter Summary ---
Demographics + + + | Address | [address] [place] [address] [address] LOZ[address]O | | | [place] [address] | + + + | Home Phone [...] [place] | | | | | [address] | | + + + + + Care Team Providers + +------+ + | Care Billet Examiner Name | Role | Phone | [...] | | | | | Unintentiona | [place], [place] | | | | | | l weight | [address] | | | | | | loss | Phone: | | | | | | Procedures | [phone] | | | | | | CONSULT TO | Fax: | | | | | | NON - [facility] | [phone] | | | | | | PROVIDER [...] | | [address] | [place], [place] | hyoscyamine) | | | | for Health and | [address] | | | | | [facility] | [phone] | | | | | [place], [place] | | | | | | [address] | | | | | | [phone] | | | +--------+ + + + [...] 10/24/2019 1:48 PM PSTSpoke with staff at [facility] they do offer PillCam at their office. We can send the referral to corie marte at f#[phone] and it will go through medical review. Spoke with Amilcar, he is willing to do capsule endoscopy locally rather than return to [facility]. Let him know I will fax referral [...] visit note and lab results faxed to f#[phone]. elephone Encounter - Allyson Diehl RN - [...] day He is now avoiding dairy products. [facility] in [place] is where he gets all of his [...] and Recommendations: 09/28/19 1. [facility] in [place] for stool studies as outlined above normal 2. If negative and symptoms persist, recommend capsule endoscopy (this could be completed b y local canal superintendent or he could return to [place] for this test) 3. Nortryptiline 25mg q [...] not effective will add scarlett Rios MD [facility] elephone Encounter - Michele Brunson RN [...] hi m know I would update Dr. Rois with his symptoms. I advised him to [...] Is this symptom causing you pain?Yes 07/01 [facility] RN Advised caller that they will receive [...]
--- OUTSIDE RECORDS SUMMARY | ~2020-08-06 | XMS | Encounter Summary ---
Demographics + + + | Address | [address] [place] [address] [address] LOZ[address] | | | [place] [address] | + + + | Home Phone [...] [place] | | | | | [address] | | + + + + + Care Team Providers + +------+ + | Care Preschool Substitute Teacher Name | Role | Phone | [...] | | | | [address] [place] | [place], [place] | | | | | for Health and | [address] | | | | | Healing, [address] | [phone] | | | | | [place], [place] | | | | | | [address] | | | | | | [phone] | | | +--------+ + + + [...]
--- OUTSIDE RECORDS SUMMARY | ~2020-08-06 | XMS | Encounter Summary ---
Demographics + + + | Address | [address] | | | [place] [address] | + + + | Home Phone [...] Team Providers + +------+ + | Care Ecg Technician Name | Role | Phone | [...] | 01/24/ | Telephone | [facility] [place] | SunshinecherelleDaljit, | Other | | 2019 | | CARDIOLOGY [address] | | | | | [place], | [place], | | | | | [place] [address] | [place] [address] | | | | | [phone] | [phone] | | | | | | | [...] PSTPatient called and left a message on voicemail stating he has chest pain daily, with [...] | Monitor | | MD [address] [place] | Interrogation | | | | | [place], | (Primary Dx); | | | | | [place] [address] | Pacemaker; | | | | | [phone] | Sinoatrial node | | | | | | dysfunction (HCC) | | | | | | with symptomatic | | | | | | bradycardia | +--------+ + + + + | 08/21/ | Implant | Cardiology | Daljit Singletary, | Remote Device | | 2019 | Monitor | | MD [address] [place] | Interrogation | | | | | [place], | (Primary Dx); | | | | | [place] [address] | Pacemaker; | | | | | [phone] | Sinoatrial node | | | | | | dysfunction (HCC) | | | | | | with symptomatic | | | | | | bradycardia | +--------+ + + + + | 08/21/ | Implant | Cardiology | Daljit Singletary, | Remote Device | | 2019 | Monitor | | MD [address] [place] | Interrogation | | | | | [place], | (Primary Dx); | | | | | [place] [address] | Pacemaker; | | | | | [phone] | Sinoatrial node | | | | | | dysfunction (HCC) | | | | | | with symptomatic | | | | | | bradycardia | +--------+ + + + + | 08/21/ | Implant | Cardiology | Daljit Singletary, | Remote Device | | 2019 | Monitor | | MD [address] [place] | Interrogation | | | | | [place], | (Primary Dx); | | | | | [place] [address] | Pacemaker; | | | | | [phone] | Sinoatrial node | | | | | | dysfunction (HCC) | | | | | | with symptomatic | | | | | | bradycardia | +--------+ + + + + | 08/21/ | Implant | Cardiology | Daljit Singletary, | Remote Device | | 2019 | Monitor | | MD [address] [place] | Interrogation | | | | | [place], | (Primary Dx); | | | | | [place] [address] | Pacemaker; | | | | | [phone] | Sinoatrial node | | | | [...] | | | | | | [place] [address] | | | | | | [phone] | | | | | | | | +--------+ + + + + documented as of this encounter Visit Diagnoses Not on filedocumented in this encounter"
--- OUTSIDE RECORDS SUMMARY | ~2020-08-06 | XMS | Encounter Summary ---
Demographics + + + | Address | [address] | | | [place] [address] | + + + | Home Phone [...] Providers + +------+ + | Care Electrical Test Technician Name | Role | Phone | + +------+ + PCP | Unavailable | + +------+ + Encounter Details +--------+ + + + + | Date | Type | Department | Care Team | Description | +--------+ + + + + | 04/28/ | Hospital | [facility] | Jonathan, | | | 2008 | Encounter | MED CTR EMERGENCY | Martell Cr MD [address] | | | | | [place] [address] | [address] | | | | | [place] | [place] [address] | | | | | [address] | [phone] | | | | | [phone] | | | +--------+ + + + [...] 2019 | Monitor | | [address] [place] | Interrogation | | | | | [place], | (Primary Dx); | | | | | [place] [address] | Pacemaker; | | | | | [phone] | Sinoatrial node | | | | | | dysfunction (HCC) | | | | | | with symptomatic | | | | | | bradycardia | +--------+ + + + + | 08/21/ | Implant | Cardiology | Daljit Singletary, | Remote Device | | 2019 | Monitor | | MD [address] [place] | Interrogation | | | | | [place], | (Primary Dx); | | | | | [place] [address] | Pacemaker; | | | | | [phone] | Sinoatrial node | | | | | | dysfunction (HCC) | | | | | | with symptomatic | | | | | | bradycardia | +--------+ + + + + | 08/21/ | Implant | Cardiology | Daljit Singletary, | Remote Device | | 2019 | Monitor | | MD [address] [place] | Interrogation | | | | | [place], | (Primary Dx); | | | | | [place] [address] | Pacemaker; | | | | | [phone] | Sinoatrial node | | | | | | dysfunction (HCC) | | | | | | with symptomatic | | | | | | bradycardia | +--------+ + + + + | 08/21/ | Implant | Cardiology | Daljit Singletary | Remote Device | | 2019 | Monitor | | MD [address] [place] | Interrogation | | | | | [place], | (Primary Dx); | | | | | [place] [address] | Pacemaker; | | | | | [phone] | Sinoatrial node | | | | | | dysfunction (HCC) | | | | | | with symptomatic | | | | | | bradycardia | +--------+ + + + + | 08/21/ | Implant | Cardiology | Daljit Singletary, | Remote Device | | 2020 | Monitor | | MD [address] [place] | Interrogation | | | | | [place], | (Primary Dx); | | | | | [place] [address] | Pacemaker; | | | | | [phone] | Sinoatrial node | | | | [...] | | | | | | [place] [address] | | | | | | [phone] | | | | | | | | +--------+ + + + + documented as of this encounter Visit Diagnoses Not on filedocumented in this encounter"
--- OUTSIDE RECORDS SUMMARY | ~2020-08-06 | XMS | Encounter Summary ---
Demographics + + + | Address | [address] | | | [place] [address] | + + + | Home Phone [...] Team Providers + +------+ + | Care Metalizing Machine Operator Automatic Name | Role | Phone [...] Provider Unknown | | | | | [place], [place] | [phone] | | | | | [address] | | | | | | [phone] | | | +--------+ + + + [...] + + + +---------+ + + | [place]-3 Fatty | CAPS, one capsule by [...] | | | | | | | #[id number], exp 07/2016 | | | | | [...] 2020 | Monitor | | [address] | Interrogation | | | | | [place], | (Primary Dx); | | | | | [place] [address] | Pacemaker; | | | | | [phone] | Sinoatrial node | | | | [...] Dx); | | | | | [place] [address] | Pacemaker; | | | | | [phone] | Sinoatrial node | | | | [...] Dx); | | | | | [place] [address] | Pacemaker; | | | | | [phone] | Sinoatrial node | | | | [...] Dx); | | | | | [place] [address] | Pacemaker; | | | | | [phone] | Sinoatrial node | | | | [...] Dx); | | | | | [place] [address] | Pacemaker; | | | | | [phone] | Sinoatrial node | | | | [...] | | | | | | [place] [address] | | | | | | [phone] | | | | | | | [...]
--- OUTSIDE RECORDS SUMMARY | ~2020-08-06 | XMS | Encounter Summary ---
Demographics + + + | Address | [address] [place] [address] [address] | | | [place] [address] | + + + | Home Phone [...] [place] | | | | | [address] | | + + + + + Care Team Providers + +------+ + | Care Dialysis Rn Name | Role | Phone | [...] | | 2019 | | Center at [facility] [address] | MD [address] | Review | | | | [address] | [place], [place] | | | | | for Health and | [address] | | | | | [facility] 2 | [phone] | | | | | [place], [place] | | | | | | [address] | | | | | | [phone] | | | +--------+ + + + [...]
--- OUTSIDE RECORDS SUMMARY | ~2020-08-06 | XMS | Encounter Summary ---
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, | (Primary Dx); | | | | | [place] [address] | Pacemaker; | | | | | [phone] | Sinoatrial node | | | | | | dysfunction (HCC) | | | | | | with symptomatic | | | | | | bradycardia | +--------+ + + + + | 08/21/ | Implant | Cardiology | Daljit Singletary, | Remote Device | | 2019 | Monitor | | MD [address] [place] | Interrogation | | | | | [place], | (Primary Dx); | | | | | [place] [address] | Pacemaker; | | | | | [phone] | Sinoatrial node | | | | | | dysfunction (HCC) | | | | | | with symptomatic | | | | | | bradycardia | +--------+ + + + + | 08/21/ | Implant | Cardiology | Daljit Singletary, | Remote Device | | 2019 | Monitor | | MD [address] [place] | Interrogation | | | | | [place], | (Primary Dx); | | | | | [place] [address] | Pacemaker; | | | | | [phone] | Sinoatrial node | | | | | | dysfunction (HCC) | | | | | | with symptomatic | | | | | | bradycardia | +--------+ + + + + | 08/21/ | Implant | Cardiology | Daljit Singletary, | Remote Device | | 2019 | Monitor | | MD [address] [place] | Interrogation | | | | | [place], | (Primary Dx); | | | | | [place] [address] | Pacemaker; | | | | | [phone] | Sinoatrial node | | | | | | dysfunction (HCC) | | | | | | with symptomatic | | | | | | bradycardia | +--------+ + + + + | 08/21/ | Implant | Cardiology | Daljit Singletary, | Remote Device | | 2019 | Monitor | | MD Chiquis Antony [place] | Interrogation | | | | | [place], | (Primary Dx); | | | | | [place] [address] | Pacemaker; | | | | | [phone] | Sinoatrial node | | | | [...] | | | | | | [place], | | | | | | [place] [address] | | | | | | [phone] | | | | | | | [...] + | Performing | Address | City[facility] | Phone Number | | Organization [...]
--- OUTSIDE RECORDS SUMMARY | ~2020-08-06 | XMS | Encounter Summary ---
Demographics + + + | Address | [address] | | | [place] [address] | + + + | Home Phone [...] + +------+ + | Care Fast Food Delivery Driver Name | Role | Phone | [...] + | 07/27/ | Emergency | [facility] | Beto Palma MD | Chest pain, | | 2018 - | | MED CTR EMERGENCY | [address] | unspecified type | | | | CENTER [address] | [place] | (Primary Dx) | | 07/28/ | | [place] | [address] | | | 2017 | | [address] | | | | | | [phone] | | | +--------+ + + + [...] sent through Care Everywhere.Chest Pain, Non cardiac (Latvian)documented in this encounter Medications at Time [...] + + + +---------+ + + | Robinson-3 Fatty | CAPS, one capsule by | [...] documented as of this encounter ED Anatoliy Galvan, RN - 07/27/2018 10:55 PM PDTPt reports chest pain all day. Reports card iac history with multiple work ups. Currently on 30 day holter monitor Beto Cruz MD - 07/27/2018 10:55 PM PD T [facility] Emergency Department Encounter Note [address] [place] [address] PCP:Kirk French MD [phone] CHIEF COMPLAINT: Chief [...] SURGERY ABLATION Bilateral 04/03/2013 x3 APPENDECTOMY 2005 [facility] CARDIAC CATHERIZATION 12/25/13 Left COLONOSCOPY N/A 12/24/2017 Procedure: COLONOSCOPY; Surgeon: Emmanuel Daniel MD; Location: [facility] MEDICAL PROCEDURE UNIT HARDWARE REMOVAL KNEE SURGERY 2003 meniscus-right LAMINECTOMY 1991 L3-4 LUMBAR DISCECTOMY 1991 L3-4 LUMBAR FUSION 01/2011 6 spine fusions neck fusion 08/10/2012 [place], [place] NECK SURGERY PACEMAKER PLACEMENT 06/14/09 SHOULDER SURGERY 03/22/13 SINUS SURGERY 1997 SPINAL FUSION STOMACH SURGERY UPPER GASTROINTESTINAL ENDOSCOPY N/A 12/24/2017 Procedure: EGD; Surgeon: Emmanuel Daniel MD; Location: [facility] MEDICAL PROCEDURE UNIT VASECTOMY CURRENT MEDICATIONS [...] DOSE, CALL 911Disp-100 tablet, R-3 , Normal Robinson-3 Fatty Acids (SALMON OIL-1000 PO) CAPS, one capsule by mouth daily twice daily ONE TOUCH [place]ICA LANCETS [facility] Check glucose as needed for hypoglycemiaDisp-100 each, R-3, N ormal pravastatin (PRAVACHOL) 40 MG tablet take 1 tablet by mouth NIGHTLYDisp-90 tablet, R-3, Nor mal rOPINIrole (REQUIP) 1 mg tablet Take 1 tablet by mouth nightly.R-0, Historical Med UNABLE TO FIND Take 1 tablet by mouth Daily. MARINE-K3Dilcxgptyd Med UNCODED MEDICATION Diagnosis: Obstructive Sleep Apnea ICD-9: 327.23 Length of Need: 99 MonthsDisp-1 Device, R-0, [id number] -Nasal Pillows, G0905-Upuiy Mask, A 7030- Full Face Mask, K2810-Yfdtli Humidifier, P1437-Heeulb Tubing, N5625-Kbloytbt, H7503-Mp instrap A7039/A703 8-Filters valACYclovir (VALTREX) 1 g [...] now present Confirmed by ANGELA MARADIAGA MD ([id number]) on 07/28/2018 6:03:35 AM IMAGING STUDIES (X-Rays [...] were reviewed along with EMS notes and long term record s if applicable. (See chart for [...] Internal Medicine Why: As needed Contact information: Eva DOMINGUEZ [address] [address] Discharge Medication List as of 07/28/2018 0:52 START taking these medications Details raNITIdine (ZANTAC) 75 MG tablet Take 1 tablet by mouth 2 times daily.Disp-30 tablet, R-0, Print Beto Palma MD 07/28/18 1516 documented in this encou nter Plan of Treatment +--------+ + + + + | Date | Type | Specialty | Care Team | Description | +--------+ + + + + | 08/21/ | Implant | Cardiology | Daljit Singletary, | Remote Device | | 2019 | Monitor | | [address] [facility] | Interrogation | | | | | [place], | (Primary Dx); | | | | | [place] [address] | Pacemaker; | | | | | [phone] | Sinoatrial node | | | | | | dysfunction (HCC) | | | | | | with symptomatic | | | | | | bradycardia | +--------+ + + + + | 08/21/ | Implant | Cardiology | Daljit Singletary, | Remote Device | | 2019 | Monitor | | MD [address] | Interrogation | | | | | [place], | (Primary Dx); | | | | | [place] [address] | Pacemaker; | | | | | [phone] | Sinoatrial node | | | | | | dysfunction (HCC) | | | | | | with symptomatic | | | | | | bradycardia | +--------+ + + + + | 08/21/ | Implant | Cardiology | AnshuDaljit carmona, | Remote Device | | 2019 | Monitor | | MD [address] | Interrogation | | | | | [place], | (Primary Dx); | | | | | [place] [address] | Pacemaker; | | | | | [phone] | Sinoatrial node | | | | | | dysfunction (HCC) | | | | | | with symptomatic | | | | | | bradycardia | +--------+ + + + + | 08/21/ | Implant | Cardiology | Daljit Singletary, | Remote Device | | 2019 | Monitor | | MD [address] | Interrogation | | | | | [place], | (Primary Dx); | | | | | [place] [address] | Pacemaker; | | | | | [phone] | Sinoatrial node | | | | | | dysfunction (HCC) | | | | | | with symptomatic | | | | | | bradycardia | +--------+ + + + + | 08/21/ | Implant | Cardiology | Daljit Singletary, | Remote Device | 2019 | Monitor | | [address] [place] [address] | Interrogation | | | | | [place], | (Primary Dx); | | | | | [place] [address] | Pacemaker; | | | | | [phone] | Sinoatrial node | | | | [...] W | | | | | | [place], | | | | | | [place] [address] | | | | | | [phone] | | | | | | | [...] W?MRN: | | | | | | [id number] | | | [id number] | | | his | | | [...] | | | ent/60 | | | [id number] | | | -5586- | | | [...] | | | St. | | | [place] | | | y | | | [...] | | | ext. | | | [address] | | | or go | | [...] | | | M.D. | | | Communications Associate | | | al | | | [...] + | [facility] | [address] | [place] | [phone] | | [facility] | | [address] | | | - LABORATORY | | [...] eGFR, | >60Comment: GLOMERULAR | >=60 | [facility] | | | non- | FILTRATION | mL/min/1.73m2 | [facility] | | | [place] | RATE,ESTIMATED | | MEDICAL | | | | mL/min/1.60m6Kczw than | | CENTER - | | [...] + | [facility] | [address] | [place] | [phone] | | [facility] | | [address] | | | - LABORATORY | | [...] + | [facility] | [address] | [place] | [phone] | | [facility] | | [address] | | | - LABORATORY | | [...] | | | | ANGELA MARADIAGA MD ([id number]) | | | | | | on [...] | | | 243 mg, Oral, ONCE, 07/27/18 | | 18 11:11 | | | [...]
--- OUTSIDE RECORDS SUMMARY | ~2020-08-06 | XMS | Encounter Summary ---
Demographics + + + | Address | [address] | | | [place] [address] | + + + | Home Phone [...] Team Providers + +------+ + | Care Synchronizer Name | Role | Phone | [...] + | 09/27/ | Telephone | [facility] | Geri Angel, | Appointment | | 2012 | | CARDIOLOGY [address] | KIER HAND [address] | | | | | [place], | [place], [place] | | | | | [place] [address] | [address] | | | | | [phone] | | | +--------+ + + + [...] this encounter Miscellaneous Notes Telephone Encounter - Sorin Julianne Cole - 09/27/2013 9:52 AM PSTPatient was referred [...] Dx); | | | | | [place] [address] | Pacemaker; | | | | | [phone] | Sinoatrial node | | | | | | dysfunction (HCC) | | | | | | with symptomatic | | | | | | bradycardia | +--------+ + + + + | 08/21/ | Implant | Cardiology | Daljit Singletary, | Remote Device | | 2019 | Monitor | | MD [address] | Interrogation | | | | | [place], | (Primary Dx); | | | | | [place] [address] | Pacemaker; | | | | | [phone] | Sinoatrial node | | | | | | dysfunction (HCC) | | | | | | with symptomatic | | | | | | bradycardia | +--------+ + + + + | 08/21/ | Implant | Cardiology | Daljit Singletary, | Remote Device | | 2019 | Monitor | | MD [address] | Interrogation | | | | | [place], | (Primary Dx); | | | | | [place] [address] | Pacemaker; | | | | | [phone] | Sinoatrial node | | | | | | dysfunction (HCC) | | | | | | with symptomatic | | | | | | bradycardia | +--------+ + + + + | 08/21/ | Implant | Cardiology | Daljit Singletary, | Remote Device | | 2019 | Monitor | | MD [address] | Interrogation | | | | | [place], | (Primary Dx); | | | | | [place] [address] | Pacemaker; | | | | | [phone] | Sinoatrial node | | | | | | dysfunction (HCC) | | | | | | with symptomatic | | | | | | bradycardia | +--------+ + + + + | 08/21/ | Implant | Cardiology | Daljit Singletary, | Remote Device | | 2019 | Monitor | | MD Chiquis Oro | Interrogation | | | | | [place], | (Primary Dx); | | | | | [place] [address] | Pacemaker; | | | | | [phone] | Sinoatrial node | | | | [...] | | | | | | [place] [address] | | | | | | [phone] | | | | | | | | +--------+ + + + + documented as of this encounter Visit Diagnoses Not on filedocumented in this encounter"
--- OUTSIDE RECORDS SUMMARY | ~2020-08-06 | XMS | Encounter Summary ---
Demographics + + + | Address | [address] | | | [place] [address] | + + + | Home Phone [...] Team Providers + +------+ + | Care Rate Supervisor Name | Role | Phone | + +------+ + PCP | Unavailable | + +------+ + Encounter Details +--------+ + + + + | Date | Type | Department | Care Team | Description | +--------+ + + + + | 01/27/ | Hospital | [facility] | Jonathan, | | | 2008 | Encounter | MED CTR EMERGENCY | Martell Cr MD [address] | | | | | [place] [address] | [address] [place] | | | | | [place] | [place] [address] | | | | | [address] | [phone] | | | | | [phone] | | | +--------+ + + + [...] 2019 | Monitor | | [address] | Interrogation | | | | | [place], | (Primary Dx); | | | | | [place] [address] | Pacemaker; | | | | | [phone] | Sinoatrial node | | | | | | dysfunction (HCC) | | | | | | with symptomatic | | | | | | bradycardia | +--------+ + + + + | 08/21/ | Implant | Cardiology | Daljit Singletary, | Remote Device | | 2019 | Monitor | | MD [address] | Interrogation | | | | | [place], | (Primary Dx); | | | | | [place] [address] | Pacemaker; | | | | | [phone] | Sinoatrial node | | | | | | dysfunction (HCC) | | | | | | with symptomatic | | | | | | bradycardia | +--------+ + + + + | 08/21/ | Implant | Cardiology | Daljit Singletary, | Remote Device | | 2019 | Monitor | | MD [address] | Interrogation | | | | | [place], | (Primary Dx); | | | | | [place] [address] | Pacemaker; | | | | | [phone] | Sinoatrial node | | | | | | dysfunction (HCC) | | | | | | with symptomatic | | | | | | bradycardia | +--------+ + + + + | 08/21/ | Implant | Cardiology | Daljit Singletary | Remote Device | | 2019 | Monitor | | MD [address] | Interrogation | | | | | [place], | (Primary Dx); | | | | | [place] [address] | Pacemaker; | | | | | [phone] | Sinoatrial node | | | | | | dysfunction (HCC) | | | | | | with symptomatic | | | | | | bradycardia | +--------+ + + + + | 08/21/ | Implant | Cardiology | Daljit Singletary, | Remote Device | | 2020 | Monitor | | MD [address] | Interrogation | | | | | [place], | (Primary Dx); | | | | | [place] [address] | Pacemaker; | | | | | [phone] | Sinoatrial node | | | | [...] | | | | | | [place] [address] | | | | | | [phone] | | | | | | | | +--------+ + + + + documented as of this encounter Visit Diagnoses Not on filedocumented in this encounter"
--- OUTSIDE RECORDS SUMMARY | ~2020-08-06 | XMS | Encounter Summary ---
Demographics + + + | Address | [address] | | | [place] [address] | + + + | Home Phone [...] Providers + +------+ + | Care Parts Room Assistant Name | Role | Phone | + +------+ + PCP | Unavailable | + +------+ + Encounter Details +--------+ + + + + | Date | Type | Department | Care Team | Description | +--------+ + + + + | 09/08/ | [facility] | [facility] | Naresh Mckeon | | | 1998 | Encounter | MED CTR SLEEP | MD Chaya [address] | | | | | CENTER [address] | [place] | | | | | [place] | [place] [address] | | | | | [address] | [phone] | | | | | [phone] | | | +--------+ + + + [...] Dx); | | | | | [place] [address] | Pacemaker; | | | | | [phone] | Sinoatrial node | | | | [...] Dx); | | | | | [place] [address] | Pacemaker; | | | | | [phone] | Sinoatrial node | | | | | | dysfunction (HCC) | | | | | | with symptomatic | | | | | | bradycardia | +--------+ + + + + | 08/21/ | Implant | Cardiology | Daljit Singletary, | Remote Device | | 2020 | Monitor | | MD [address] | Interrogation | | | | | [place], | (Primary Dx); | | | | | [place] [address] | Pacemaker; | | | | | [phone] | Sinoatrial node | | | | | | dysfunction ([facility]) | | | | | | with symptomatic | | | | | | bradycardia | +--------+ + + + + | 08/21/ | Implant | Cardiology | Daljit Singletary, | Remote Device | | 2019 | Monitor | | MD [address] [place] | Interrogation | | | | | [place], | (Primary Dx); | | | | | [place] [address] | Pacemaker; | | | | | [phone] | Sinoatrial node | | | | | | dysfunction ([facility]) | | | | | | with symptomatic | | | | | | bradycardia | +--------+ + + + + | 08/21/ | Implant | Cardiology | Daljit Singeltary, | Remote Device | | 2019 | Monitor | | MD [address] [place] | Interrogation | | | | | [place], | (Primary Dx); | | | | | [place] [address] | Pacemaker; | | | | | [phone] | Sinoatrial node | | | | [...] | | | | | | [place] [address] | | | | | | [phone] | | | | | | | | +--------+ + + + + documented as of this encounter Visit Diagnoses Not on filedocumented in this encounter"
--- OUTSIDE RECORDS SUMMARY | ~2020-08-06 | XMS | Encounter Summary ---
Demographics + + + | Address | [address] | | | [place] [address] | + + + | Home Phone [...] Providers + +------+ + | Care Double Bottom Driver Name | Role | Phone | + +------+ + | Kirk French MD | PCP | | + +------+ + Encounter Details +--------+ + + + + | Date | Type | Department | Care Team | Description | +--------+ + + + + | 11/30/ | Abstract | [facility] | Provider, | | | 2019 | | GASTROENTEROLOGY | MD Dago Jacques | | | | | [address] | [place]. | | | | | [address] | [place] [address] | | | | | [address] | | | | | | [phone] | | | +--------+ + + + [...] Dx); | | | | | [place] [address] | Pacemaker; | | | | | [phone] | Sinoatrial node | | | | | | dysfunction (HCC) | | | | | | with symptomatic | | | | | | bradycardia | +--------+ + + + + | 08/21/ | Implant | Cardiology | Daljit Singletary, | Remote Device | | 2019 | Monitor | | MD [address] | Interrogation | | | | | [place], | (Primary Dx); | | | | | [place] [address] | Pacemaker; | | | | | [phone] | Sinoatrial node | | | | | | dysfunction (HCC) | | | | | | with symptomatic | | | | | | bradycardia | +--------+ + + + + | 08/21/ | Implant | Cardiology | Daljit Singletary, | Remote Device | | 2019 | Monitor | | MD [address] | Interrogation | | | | | [place], | (Primary Dx); | | | | | [place] [address] | Pacemaker; | | | | | [phone] | Sinoatrial node | | | | | | dysfunction (HCC) | | | | | | with symptomatic | | | | | | bradycardia | +--------+ + + + + | 08/21/ | Implant | Cardiology | Daljit Singletary, | Remote Device | | 2020 | Monitor | | MD [address] | Interrogation | | | | | [place], | (Primary Dx); | | | | | [place] [address] | Pacemaker; | | | | | [phone] | Sinoatrial node | | | | | | dysfunction (HCC) | | | | | | with symptomatic | | | | | | bradycardia | +--------+ + + + + | 08/21/ | Implant | Cardiology | Daljit Singletary, | Remote Device | 2019 | Monitor | | [address] | Interrogation | | | | | [place], | (Primary Dx); | | | | | [place] [address] | Pacemaker; | | | | | [phone] | Sinoatrial node | | | | [...] W | | | | | | [place], | | | | | | [place] [address] | | | | | | [phone] | | | | | | | [...] | | | | Emmanuel Daniel [facility] | | | | + [...]
--- OUTSIDE RECORDS SUMMARY | ~2020-08-06 | XMS | Encounter Summary ---
Demographics + + + | Address | [address] | | | [place] [address] | + + + | Home Phone [...] Team Providers + +------+ + | Care Hospitalist Name | Role | Phone | + [...] CARDIOLOGY [address] | MD [address] | monitor | | | | [place], | [place], | disconnected) | | | | [place] [address] | [place] [address] | | | | | [phone] | [phone] | | | | | | | [...] Telephone Encounter - Shabana Lama RN - 06/27/2020 2:47 PM PDTReceived transmission . Battery with 3 months remaining. elephone Encounter - Shabana Lama RN - 06/03/2020 8:44 AM PDTR eceived voice message that patient has tried to contact [employer] stay connected line multipl e times and has been on hold for a long period of time. Also reports that his monitor gives the error code # 5704 - which means no cellular signal. Patient has tried to move his mon itor to other locations without success. I called [employer] and explained the situation. They recommend using an ethernet adapter as long as the patient has Wii Fi. Verified with patient that he does have internet and also verified his mailing address. [employer] will ship out the new equipment and [...] not connecting. Rec eived an e-mail from [employer] that they have been unable to reach [...] | Monitor | | MD [address] | Interrogation | | | | | [place], | (Primary Dx); | | | | | [place] [address] | Pacemaker; | | | | | [phone] | Sinoatrial node | | | | | | dysfunction (HCC) | | | | | | with symptomatic | | | | | | bradycardia | +--------+ + + + + | 08/21/ | Implant | Cardiology | Daljit Singletary, | Remote Device | | 2019 | Monitor | | MD [address] | Interrogation | | | | | [place], | (Primary Dx); | | | | | [place] [address] | Pacemaker; | | | | | [phone] | Sinoatrial node | | | | | | dysfunction (HCC) | | | | | | with symptomatic | | | | | | bradycardia | +--------+ + + + + | 08/21/ | Implant | Cardiology | Daljit Singletary, | Remote Device | | 2019 | Monitor | | MD [address] | Interrogation | | | | | [place], | (Primary Dx); | | | | | [place] [address] | Pacemaker; | | | | | [phone] | Sinoatrial node | | | | | | dysfunction (HCC) | | | | | | with symptomatic | | | | | | bradycardia | +--------+ + + + + | 08/21/ | Implant | Cardiology | Daljit Singletary, | Remote Device | | 2019 | Monitor | | MD [address] | Interrogation | | | | | [place], | (Primary Dx); | | | | | [place] [address] | Pacemaker; | | | | | [phone] | Sinoatrial node | | | | | | dysfunction (HCC) | | | | | | with symptomatic | | | | | | bradycardia | +--------+ + + + + | 08/21/ | Implant | Cardiology | Daljit Singletary, | Remote Device | | 2019 | Monitor | | MD [address] | Interrogation | | | | | [place], | (Primary Dx); | | | | | [place] [address] | Pacemaker; | | | | | [phone] | Sinoatrial node | | | | [...] | | | | | | [place] [address] | | | | | | [phone] | | | | | | | | +--------+ + + + + documented as of this encounter Visit Diagnoses Not on filedocumented in this encounter"
--- OUTSIDE RECORDS SUMMARY | ~2020-08-06 | XMS | Encounter Summary ---
Demographics + + + | Address | [address] | | | [place] [address] | + + + | Home Phone [...] Team Providers + +------+ + | Care Router Machine Operator Name | Role | Phone | + +------+ + | Kirk French MD | PCP | | + +------+ + Encounter Details +--------+ + + + + | Date | Type | Department | Care Team | Description | +--------+ + + + + | 01/05/ | Orders Only | [facility] | Emmanuel Daniel MD | | | 2019 | | [facility]ICAL [facility]ENTER | [address], [place] | | | | | PATHOLOGY [address] | [address] [facility] [address] | | | | | [address] [place], [place] | [address] | | | | | [address] | | | | | | [phone] | | | +--------+ + + + [...] 2019 | Monitor | | [address] | Interrogation | | | | | [place], | (Primary Dx); | | | | | [place] [address] | Pacemaker; | | | | | [phone] | Sinoatrial node | | | | | | dysfunction ([facility]) | | | | | | with symptomatic | | | | | | bradycardia | +--------+ + + + + | 08/21/ | Implant | Cardiology | Daljit Singletary, | Remote Device | | 2019 | Monitor | | MD [address] | Interrogation | | | | | [place], | (Primary Dx); | | | | | [place] [address] | Pacemaker; | | | | | [phone] | Sinoatrial node | | | | | | dysfunction (HCC) | | | | | | with symptomatic | | | | | | bradycardia | +--------+ + + + + | 08/21/ | Implant | Cardiology | Daljit Singletary, | Remote Device | | 2019 | Monitor | | MD [address] | Interrogation | | | | | [place], | (Primary Dx); | | | | | [place] [address] | Pacemaker; | | | | | [phone] | Sinoatrial node | | | | | | dysfunction (HCC) | | | | | | with symptomatic | | | | | | bradycardia | +--------+ + + + + | 08/21/ | Implant | Cardiology | Daljit Singletary, | Remote Device | | 2019 | Monitor | | MD [address] | Interrogation | | | | | [place], | (Primary Dx); | | | | | [place] [address] | Pacemaker; | | | | | [phone] | Sinoatrial node | | | | | | dysfunction (HCC) | | | | | | with symptomatic | | | | | | bradycardia | +--------+ + + + + | 08/21/ | Implant | Cardiology | Daljit Signletary, | Remote Device | | 2019 | Monitor | | [address] | Interrogation | | | | | 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 B. The specimen, labeled "Paton, right colon" is received | | | in formalin and consists of six 0.2-0.3 cm lin fragments. Entirely | | | submitted in (B1). C. The specimen, labeled "Paton, left colon" | | | is received in formalin and consists of six 0.2-0.3 cm lin-pink | | | fragments. Entirely submitted in (C1). am:AMB:portillo PERFORMING | | | LABORATORY: The technical component was performed by [facility] | | | [facility], [address] [place] [address] ([employer] Jointer: | | | Kailey Stafford MD; CLIA# [id number]). Professional interpretation was | | | performed by [facility], [facility], [facility] | | | [place] [address] ([employer] Jointer: [place] | Shanique Dao M.D.; CLIA#: [id number]). Diagnostician: Ishaan Dao | | | Pathologist [...]
--- OUTSIDE RECORDS SUMMARY | ~2020-08-06 | XMS | Encounter Summary ---
Demographics + + + | Address | [address] | | | [place] [address] | + + + | Home Phone [...] Team Providers + +------+ + | Care Economics Professor Name | Role | Phone [...] + + | 06/18/ | Emergency | [facility] | Dom Graham, | Cervical pain (neck) | | 2013 | | MED CTR EMERGENCY | MD [address] | (Primary Dx); | | | | CENTER [address] | [place] | Paresthesia and pain | | | | [place] | [address] | of both upper | | | | [address] | | extremities | | | | [phone] | | | +--------+ + + + [...] cannot be sent through Care Everywhere.PARAESTHESIAS ( STATELESS)NECK SPRAIN/STRAIN (STATELESS)documented in this encounter Medications at Time of [...] + + + +---------+ + + | [place]-3 Fatty | CAPS, one capsule by | [...] to receiving discharge instruction s from RN. om Graham MD - 06/18/2014 2:23 PM PDT . [...] daily ONE TOUCH [place] LANC[place] [facility] Check glucose as needed for hypoglycemia PANTOPRAZOLE [...] craig in own home REVIEW OF SYSTEMS A 12 system review of systems is otherwise negative except as noted in the HPI above. PHYSICAL EXAM VITAL SIGNS: (first vital signs):Temp: 36.4 C (97.5 F) Pulse: 85 Resp: 16 SpO2: 95 % BP: 111/77 mmHg Constitutional: Well developed, Well nourished, No acute distress, Non-toxic appearance. HENT: Normocephalic, Atraumatic, Bilateral external ears normal, Oral mucosa moist, applications engineer ior pharynx no exudates, Nose normal. Neck-supple, [...] Amanda DO. In 1 week. Contact information: [address] [place] [address] New Prescriptions METHYLPREDNISOLONE (MEDROL DOSEPAK) 4 MG TABLET Follow package directions. Dom Graham MD 06/18/14 1722 document ed in this encounter Miscellaneous Notes Plan of Care - IRINA MAXWELL WAHI - 06/21/2014 12:00 AM PDT D Triage [...] | | | | | [place], | (Primary Dx); | | | | | [place] [address] | Pacemaker; | | | | | [phone] | Sinoatrial node | | | | | | dysfunction (HCC) | | | | | | with symptomatic | | | | | | bradycardia | +--------+ + + + + | 08/21/ | Implant | Cardiology | Daljit Singletary, | Remote Device | | 2019 | Monitor | | [address] | Interrogation | | | | | [place], | (Primary Dx); | | | | | [place] [address] | Pacemaker; | | | | | [phone] | Sinoatrial node | | | | | | dysfunction (HCC) | | | | | | with symptomatic | | | | | | bradycardia | +--------+ + + + + | 08/21/ | Implant | Cardiology | Daljit Singletary, | Remote Device | | 2019 | Monitor | | MD [address] | Interrogation | | | | | [place], | (Primary Dx); | | | | | [place] [address] | Pacemaker; | | | | | [phone] | Sinoatrial node | | | | | | dysfunction ([facility]) | | | | | | with symptomatic | | | | | | bradycardia | +--------+ + + + + | 08/21/ | Implant | Cardiology | Daljit Singletary, | Remote Device | | 2019 | Monitor | | MD [address] | Interrogation | | | | | [place], | (Primary Dx); | | | | | [place] [address] | Pacemaker; | | | | | [phone] | Sinoatrial node | | | | | | dysfunction ([facility]) | | | | | | with symptomatic | | | | | | bradycardia | +--------+ + + + + | 08/21/ | Implant | Cardiology | Shaista Singletarypawanotto, | Remote Device | | 2019 | Monitor | | [address] [place] | Interrogation | | | | | [place], | (Primary Dx); | | | | | [place] [address] | Pacemaker; | | | | | [phone] | Sinoatrial node | | | | [...] | | | | | | [place], | | | | | | [place] [address] | | | | | | [phone] | | | | | | | [...] + | MISCELLANEOUS LAB | | | [phone] | + +---------+ + + | MISCELANIOUS LAB | | | [phone] | + +---------+ + + documented in [...]
--- OUTSIDE RECORDS SUMMARY | ~2020-08-06 | XMS | Encounter Summary ---
Demographics + + + | Address | [address] | | | [place] [address] | + + + | Home Phone [...] Team Providers + +------+ + | Care Sail Lay Out Worker Name | Role | Phone | + +------+ + PCP | Unavailable | + +------+ + Encounter Details +--------+ + + + + | Date | Type | Department | Care Team | Description | +--------+ + + + + | 06/13/ | [facility] | [facility] | Daljit Singletary, | | | 2008 | Encounter | MED CTR LABORATORY | [address] | | | | | [address] | [place], | | | | | [place] | [place] [address] | | | | | [address] | [phone] | | | | | [phone] | | | +--------+ + + + [...] 2019 | Monitor | | [address] | Interrogation | | | | | [place], | (Primary Dx); | | | | | [place] [address] | Pacemaker; | | | | | [phone] | Sinoatrial node | | | | | | dysfunction (HCC) | | | | | | with symptomatic | | | | | | bradycardia | +--------+ + + + + | 08/21/ | Implant | Cardiology | Daljit Singletary, | Remote Device | | 2019 | Monitor | | MD [address] | Interrogation | | | | | [place], | (Primary Dx); | | | | | [place] [address] | Pacemaker; | | | | | [phone] | Sinoatrial node | | | | | | dysfunction (HCC) | | | | | | with symptomatic | | | | | | bradycardia | +--------+ + + + + | 08/21/ | Implant | Cardiology | Daljit Singletary, | Remote Device | | 2019 | Monitor | | MD [address] | Interrogation | | | | | [place], | (Primary Dx); | | | | | [place] [address] | Pacemaker; | | | | | [phone] | Sinoatrial node | | | | | | dysfunction (HCC) | | | | | | with symptomatic | | | | | | bradycardia | +--------+ + + + + | 08/21/ | Implant | Cardiology | Daljit Singletary | Remote Device | | 2019 | Monitor | | MD [address] | Interrogation | | | | | [place], | (Primary Dx); | | | | | [place] [address] | Pacemaker; | | | | | [phone] | Sinoatrial node | | | | | | dysfunction (HCC) | | | | | | with symptomatic | | | | | | bradycardia | +--------+ + + + + | 08/21/ | Implant | Cardiology | Daljit Singletary, | Remote Device | | 2020 | Monitor | | MD [address] | Interrogation | | | | | [place], | (Primary Dx); | | | | | [place] [address] | Pacemaker; | | | | | [phone] | Sinoatrial node | | | | [...] | | | | | | [place] [address] | | | | | | [phone] | | | | | | | | +--------+ + + + + documented as of this encounter Visit Diagnoses Not on filedocumented in this encounter"
--- OUTSIDE RECORDS SUMMARY | ~2020-08-06 | XMS | Encounter Summary ---
Demographics + + + | Address | [address] | | | [place] [address] | + + + | Home Phone [...] + +------+ + | Care Motor Vehicle Parts Interpreter Name | Role | Phone [...] | 06/26/ | Telephone | [facility] | Jacek Holm, | Results | | 2012 | | MEDICINE EXETER | [address] | | | | | [address] | [place] | | | | | [place], [place] | [address] | | | | | [address] | | | | | | [phone] | | | +--------+ + + + [...] Interrogation | | | | | [place], | (Primary Dx); | | | | | [place] [address] | Pacemaker; | | | | | [phone] | Sinoatrial node | | | | | | dysfunction (HCC) | | | | | | with symptomatic | | | | | | bradycardia | +--------+ + + + + | 08/21/ | Implant | Cardiology | Daljit Singletary, | Remote Device | | 2019 | Monitor | | MD [address] | Interrogation | | | | | [place], | (Primary Dx); | | | | | [place] [address] | Pacemaker; | | | | | [phone] | Sinoatrial node | | | | | | dysfunction (HCC) | | | | | | with symptomatic | | | | | | bradycardia | +--------+ + + + + | 08/21/ | Implant | Cardiology | Daljit Singletary, | Remote Device | | 2019 | Monitor | | MD [address] | Interrogation | | | | | [place], | (Primary Dx); | | | | | [place] [address] | Pacemaker; | | | | | [phone] | Sinoatrial node | | | | | | dysfunction (HCC) | | | | | | with symptomatic | | | | | | bradycardia | +--------+ + + + + | 08/21/ | Implant | Cardiology | Daljit Singletary, | Remote Device | | 2020 | Monitor | | MD [address] | Interrogation | | | | | [place], | (Primary Dx); | | | | | [place] [address] | Pacemaker; | | | | | [phone] | Sinoatrial node | | | | | | dysfunction (HCC) | | | | | | with symptomatic | | | | | | bradycardia | +--------+ + + + + | 08/21/ | Implant | Cardiology | Daljit Singletary, | Remote Device | | 2019 | Monitor | | MD [address] | Interrogation | | | | | [place], | (Primary Dx); | | | | | [place] [address] | Pacemaker; | | | | | [phone] | Sinoatrial node | | | | [...] [place], | | | | | | [place] [address] | | | | | | [phone] | | | | | | | | +--------+ + + + + documented as of this encounter Visit Diagnoses Not on filedocumented in this encounter"
--- OUTSIDE RECORDS SUMMARY | ~2020-08-06 | XMS | Encounter Summary ---
Demographics + + + | Address | [address] | | | [place] [address] | + + + | Home Phone [...] Providers + +------+ + | Care Salt Plant Operator Name | Role | Phone [...] [address] | | | | [place], | [place], | | | | | [place] [address] | [place] [address] | | | | | [phone] | [phone] | | | | | | | [...] Dx); | | | | | [place] [address] | Pacemaker; | | | | | [phone] | Sinoatrial node | | | | | | dysfunction (HCC) | | | | | | with symptomatic | | | | | | bradycardia | +--------+ + + + + | 08/21/ | Implant | Cardiology | Daljit Singletary, | Remote Device | | 2019 | Monitor | | MD [address] [place] | Interrogation | | | | | [place], | (Primary Dx); | | | | | [place] [address] | Pacemaker; | | | | | [phone] | Sinoatrial node | | | | | | dysfunction (HCC) | | | | | | with symptomatic | | | | | | bradycardia | +--------+ + + + + | 08/21/ | Implant | Cardiology | Daljit Singletary, | Remote Device | | 2019 | Monitor | | MD [address] [place] | Interrogation | | | | | [place], | (Primary Dx); | | | | | [place] [address] | Pacemaker; | | | | | [phone] | Sinoatrial node | | | | | | dysfunction ([facility]) | | | | | | with symptomatic | | | | | | bradycardia | +--------+ + + + + | 08/21/ | Implant | Cardiology | Daljit Singletary, | Remote Device | | 2019 | Monitor | | MD [address] [place] | Interrogation | | | | | [place], | (Primary Dx); | | | | | [place] [address] | Pacemaker; | | | | | [phone] | Sinoatrial node | | | | | | dysfunction (HCC) | | | | | | with symptomatic | | | | | | bradycardia | +--------+ + + + + | 08/21/ | Implant | Cardiology | Daljit Singletary, | Remote Device | 2019 | Monitor | | [address] [place] | Interrogation | | | | | [place], | (Primary Dx); | | | | | [place] [address] | Pacemaker; | | | | | [phone] | Sinoatrial node | | | | [...] W | | | | | | [place], | | | | | | [place] [address] | | | | | | [phone] | | | | | | | [...]
--- OUTSIDE RECORDS SUMMARY | ~2020-08-06 | XMS | Encounter Summary ---
Demographics + + + | Address | [address] | | | [place] [address] | + + + | Home Phone [...] Providers + +------+ + | Care Tire Beader Maker Name | Role | Phone | + +------+ + PCP | Unavailable | + +------+ + Encounter Details +--------+ + + + + | Date | Type | Department | Care Team | Description | +--------+ + + + + | 02/21/ | Hospital | [facility] | Geri Angel, | | | 2011 | Encounter | MED CTR XRAY [address] | ASSOCIATE PROGRAMMER [address] | | | | | [place] | [address] [place] | | | | | [place] [address] | [address] | | | | | [phone] | | | +--------+ + + + [...] Dx); | | | | | [place] [address] | Pacemaker; | | | | | [phone] | Sinoatrial node | | | | [...] Dx); | | | | | [place] [address] | Pacemaker; | | | | | [phone] | Sinoatrial node | | | | | | dysfunction (HCC) | | | | | | with symptomatic | | | | | | bradycardia | +--------+ + + + + | 08/21/ | Implant | Cardiology | Daljit Singletary, | Remote Device | | 2019 | Monitor | | MD [address] | Interrogation | | | | | [place], | (Primary Dx); | | | | | [place] [address] | Pacemaker; | | | | | [phone] | Sinoatrial node | | | | | | dysfunction (HCC) | | | | | | with symptomatic | | | | | | bradycardia | +--------+ + + + + | 08/21/ | Implant | Cardiology | Daljit Singletary, | Remote Device | | 2019 | Monitor | | MD [address] | Interrogation | | | | | [place], | (Primary Dx); | | | | | [place] [address] | Pacemaker; | | | | | [phone] | Sinoatrial node | | | | | | dysfunction (HCC) | | | | | | with symptomatic | | | | | | bradycardia | +--------+ + + + + | 08/21/ | Implant | Cardiology | Daljit Singletary, | Remote Device | | 2019 | Monitor | | MD [address] | Interrogation | | | | | [place], | (Primary Dx); | | | | | [place] [address] | Pacemaker; | | | | | [phone] | Sinoatrial node | | | | [...] | | | | | | [place] [address] | | | | | | [phone] | | | | | | | | +--------+ + + + + documented as of this encounter Visit Diagnoses Not on filedocumented in this encounter"
--- OUTSIDE RECORDS SUMMARY | ~2020-08-06 | XMS | Encounter Summary ---
Demographics + + + | Address | [address] | | | [place] [address] | + + + | Home Phone [...] Providers + +------+ + | Care Electric Distribution Engineer Name | Role | Phone [...] Amanda, | | | 2013 | | [facility] | DO [address] | | | | | [address] | [place] | | | | | [place] | [address] | | | | | [address] | | | | | | [phone] | | | +--------+ + + + [...] | Monitor | | MD [address] | Interrogation | | | | | [place], | (Primary Dx); | | | | | [place] [address] | Pacemaker; | | | | | [phone] | Sinoatrial node | | | | | | dysfunction (HCC) | | | | | | with symptomatic | | | | | | bradycardia | +--------+ + + + + | 08/21/ | Implant | Cardiology | Daljit Singletary, | Remote Device | | 2019 | Monitor | | MD [address] | Interrogation | | | | | [place], | (Primary Dx); | | | | | [place] [address] | Pacemaker; | | | | | [phone] | Sinoatrial node | | | | | | dysfunction (HCC) | | | | | | with symptomatic | | | | | | bradycardia | +--------+ + + + + | 08/21/ | Implant | Cardiology | Daljit Singletary, | Remote Device | | 2019 | Monitor | | MD [address] | Interrogation | | | | | [place], | (Primary Dx); | | | | | [place] [address] | Pacemaker; | | | | | [phone] | Sinoatrial node | | | | | | dysfunction (HCC) | | | | | | with symptomatic | | | | | | bradycardia | +--------+ + + + + | 08/21/ | Implant | Cardiology | Daljit Singletary, | Remote Device | | 2019 | Monitor | | MD [address] | Interrogation | | | | | [place], | (Primary Dx); | | | | | [place] [address] | Pacemaker; | | | | | [phone] | Sinoatrial node | | | | | | dysfunction (HCC) | | | | | | with symptomatic | | | | | | bradycardia | +--------+ + + + + | 08/21/ | Implant | Cardiology | Daljit Singletary, | Remote Device | | 2020 | Monitor | | MD [address] | Interrogation | | | | | [place], | (Primary Dx); | | | | | [place] [address] | Pacemaker; | | | | | [phone] | Sinoatrial node | | | | [...] | | | | | | [place] [address] | | | | | | [phone] | | | | | | | [...] + + + | EXTERNAL LAB: [facility] | 07/26/2014 | | Results for [...] + | [facility] | [address] | [place], [place] | [phone] | | [facility] | | [address] | | | - LABORATORY | | | | + + + + + | [facility] | [address] | [place], [place] | | | [facility] | | [address], [facility] | | | [...] | | | | | | | [place], | | | | | | External [...]
--- OUTSIDE RECORDS SUMMARY | ~2020-08-06 | XMS | Encounter Summary ---
Demographics + + + | Address | [address] | | | [place] [address] | + + + | Home Phone [...] Providers + +------+ + | Care Canal Lock Tender Chief Operator Name | Role | Phone | [...] | | type | [address] | [place], | | | | | Procedures | [place], | [place] | | | | | [place] | [place] [address] | [address] | | | | | Stress Test | Phone: | Phone: | | | | | (Vasodilator | [phone] | [phone] | | | | | ) CHG | Fax: | Fax: | | | | | MYOCARDIAL | [phone] | [phone] | | | | | SPECT | [...] | | type | [address] | [place], | | | | | Procedures | [place], | [place] | | | | | [place] | [place] [address] | [address] | | | | | Stress Test | Phone: | Phone: | | | | | (Vasodilator | [phone] | [phone] | | | | | ) CHG | Fax: | Fax: | | | | | MYOCARDIAL | [phone] | [phone] | | | | | SPECT | [...] + + | 07/21/ | Hospital | [facility] | Daljit Singletary, | Chest pain, | | 2018 | Encounter | MED CTR NUCLEAR | MD [address] | unspecified type | | | | MEDICINE [address] | [address] [place], | | | | | [place] | [place] [address] | | | | | [place] [address] | [phone] | | | | | [phone] | | | | | | | [place] | | +--------+ + + + + [...] + + + +---------+ + + | [place]-3 Fatty | CAPS, one capsule by | [...] | 2019 | Monitor | | [address] [place] | Interrogation | | | | | [place], | (Primary Dx); | | | | | [place] [address] | Pacemaker; | | | | | [phone] | Sinoatrial node | | | | | | dysfunction (HCC) | | | | | | with symptomatic | | | | | | bradycardia | +--------+ + + + + | 08/21/ | Implant | Cardiology | Daljit Singletary, | Remote Device | | 2019 | Monitor | | MD [address] [place] | Interrogation | | | | | [place], | (Primary Dx); | | | | | [place] [address] | Pacemaker; | | | | | [phone] | Sinoatrial node | | | | | | dysfunction (HCC) | | | | | | with symptomatic | | | | | | bradycardia | +--------+ + + + + | 08/21/ | Implant | Cardiology | Daljit Singletary, | Remote Device | | 2019 | Monitor | | MD [address] [place] | Interrogation | | | | | [place], | (Primary Dx); | | | | | [place] [address] | Pacemaker; | | | | | [phone] | Sinoatrial node | | | | | | dysfunction (HCC) | | | | | | with symptomatic | | | | | | bradycardia | +--------+ + + + + | 08/21/ | Implant | Cardiology | Daljit Singletary, | Remote Device | | 2019 | Monitor | | MD [address] [place] | Interrogation | | | | | [place], | (Primary Dx); | | | | | [place] [address] | Pacemaker; | | | | | [phone] | Sinoatrial node | | | | | | dysfunction (HCC) | | | | | | with symptomatic | | | | | | bradycardia | +--------+ + + + + | 08/21/ | Implant | Cardiology | Daljit Singletary, | Remote Device | | 2019 | Monitor | | MD [address] [place] | Interrogation | | | | | [place], | (Primary Dx); | | | | | [place] [address] | Pacemaker; | | | | | [phone] | Sinoatrial node | | | | [...] | | | | | | [place], | | | | | | [place] [address] | | | | | | [phone] | | | | | | | [...] pain, unspecified type | + + | Remote [...] | | Starting [facility] 07/21/18 at 0822, For | | | | | | | 1 dose, Nuclear Medicine | | | | | | + +-------+ + +---+---+ +---+---+ | | | +---+---+ documented in this encounter"
--- OUTSIDE RECORDS SUMMARY | ~2020-08-06 | XMS | Encounter Summary ---
Demographics + + + | Address | [address] | | | [place] [address] | + + + | Home Phone [...] Team Providers + +------+ + | Care Ship'S Cook Name | Role | Phone | [...] + | 12/21/ | Telephone | [facility] | Darin Gandhi | Procedure | | 2020 | | GASTROENTEROLOGY | MD Jacek [address] | | | | | [address] [place] | [address] [place] | | | | | [address] [place], [place] | [place] [address] | | | | | [address] | [phone] | | | | | [phone] | | | +--------+ + + + [...] bleeding; he states that he was at [facility] and they wanted to take him to [facility] but he declined. He requested to be seen. Brought patient back to exam room; advised what I could provide him was scheduling; however , if he was actively bleeding he should go to ED; he refused; he proceeded to show me travis es he took this morning of his blood [...] CHILDRESS in Dr. Rios off ice at [facility]. Patient stated that Dr. Rios recommend that he have a colon procedure RAFFI d ue to his bleeding. Patient stated that he would like to do his pill and colon at the same t sherin. Patient would like to cancel his pill cam appt on DEC 25 2019. Patient would like to do colon here at [facility]. Copies of referral have been sent to scan, in Dr. Gandhi box and placed in Lisa CHILDRESS desk . Patient aware of Dr. Gandhi and Lisa borjas. Provider/Nurse: [place]/ Call back number:[phone] documented in this encou nter Plan of Treatment +--------+ + + + + | Date | Type | Specialty | Care Team | Description | +--------+ + + + + | 08/21/ | Implant | Cardiology | Daljit Singletary, | Remote Device | | 2019 | Monitor | | MD [address] | Interrogation | | | | | [place], | (Primary Dx); | | | | | [place] [address] | Pacemaker; | | | | | [phone] | Sinoatrial node | | | | | | dysfunction (HCC) | | | | | | with symptomatic | | | | | | bradycardia | +--------+ + + + + | 08/21/ | Implant | Cardiology | Daljit Singletary, | Remote Device | | 2019 | Monitor | | MD [address] | Interrogation | | | | | [place], | (Primary Dx); | | | | | [place] [address] | Pacemaker; | | | | | [phone] | Sinoatrial node | | | | | | dysfunction (HCC) | | | | | | with symptomatic | | | | | | bradycardia | +--------+ + + + + | 08/21/ | Implant | Cardiology | Daljit Singletary, | Remote Device | | 2019 | Monitor | | MD [address] | Interrogation | | | | | [place], | (Primary Dx); | | | | | [place] [address] | Pacemaker; | | | | | [phone] | Sinoatrial node | | | | | | dysfunction (HCC) | | | | | | with symptomatic | | | | | | bradycardia | +--------+ + + + + | 08/21/ | Implant | Cardiology | Daljit Singletary, | Remote Device | | 2019 | Monitor | | MD [address] | Interrogation | | | | | [place], | (Primary Dx); | | | | | [place] [address] | Pacemaker; | | | | | [phone] | Sinoatrial node | | | | | | dysfunction (HCC) | | | | | | with symptomatic | | | | | | bradycardia | +--------+ + + + + | 08/21/ | Implant | Cardiology | Daljit Singletary, | Remote Device | | 2020 | Monitor | | MD [address] | Interrogation | | | | | [place], | (Primary Dx); | | | | | [place] [address] | Pacemaker; | | | | | [phone] | Sinoatrial node | | | | [...] | | | | | | [place] [address] | | | | | | [phone] | | | | | | | [...] type dependence, continuous | + + | Remote Device Interrogation [...]
--- OUTSIDE RECORDS SUMMARY | ~2020-08-06 | XMS | Encounter Summary ---
Demographics + + + | Address | [address] | | | [place] [address] | + + + | Home Phone [...] Team Providers + +------+ + | Care Shipmaster Name | Role | Phone | + +------+ + PCP | Unavailable | + +------+ + Encounter Details +--------+ + + + + | Date | Type | Department | Care Team | Description | +--------+ + + + + | 01/15/ | [facility] | [facility] | Emmanuel Daniel MD | | | 1994 | Encounter | MED CTR GENERIC OP | [address] | | | | | CONV DEPT [address] | [address] | | | | | [place], | [address] | | | | | [place] [id number] | | | | | | [phone] | | | +--------+ + + + [...] 2019 | Monitor | | [address] [place] | Interrogation | | | | | [place], | (Primary Dx); | | | | | [place] [address] | Pacemaker; | | | | | [phone] | Sinoatrial node | | | | | | dysfunction (HCC) | | | | | | with symptomatic | | | | | | bradycardia | +--------+ + + + + | 08/21/ | Implant | Cardiology | Daljit Singletary, | Remote Device | | 2019 | Monitor | | MD [address] [place] | Interrogation | | | | | [place], | (Primary Dx); | | | | | [place] [address] | Pacemaker; | | | | | [phone] | Sinoatrial node | | | | | | dysfunction (HCC) | | | | | | with symptomatic | | | | | | bradycardia | +--------+ + + + + | 08/21/ | Implant | Cardiology | Daljit Singletary, | Remote Device | | 2020 | Monitor | | MD [address] [place] | Interrogation | | | | | [place], | (Primary Dx); | | | | | [place] [address] | Pacemaker; | | | | | [phone] | Sinoatrial node | | | | | | dysfunction (HCC) | | | | | | with symptomatic | | | | | | bradycardia | +--------+ + + + + | 08/21/ | Implant | Cardiology | Daljit Singletary | Remote Device | | 2019 | Monitor | | MD [address] [place] | Interrogation | | | | | [place], | (Primary Dx); | | | | | [place] [address] | Pacemaker; | | | | | [phone] | Sinoatrial node | | | | | | dysfunction (HCC) | | | | | | with symptomatic | | | | | | bradycardia | +--------+ + + + + | 08/21/ | Implant | Cardiology | Daljit Singletary, | Remote Device | | 2020 | Monitor | | MD [address] [place] | Interrogation | | | | | [place], | (Primary Dx); | | | | | [place] [address] | Pacemaker; | | | | | [phone] | Sinoatrial node | | | | [...] | | | | | | [place] [id number] | | | | | | [phone] | | | | | | | | +--------+ + + + + documented as of this encounter Visit Diagnoses Not on filedocumented in this encounter"
--- OUTSIDE RECORDS SUMMARY | ~2020-08-06 | XMS | Encounter Summary ---
Demographics + + + | Address | [address] | | | [place] [address] | + + + | Home Phone [...] 2012 | | Conversion Location | [address] | | | | | TRACIE TINEO [facility] | [place] [address] [place], | | | | | [place], [place] | [place] [address] | | | | | [address] | [phone] | | | | | [phone] | | | +--------+ + + + [...] | Monitor | | MD [address] | Interrogation | | | | | [place], | (Primary Dx); | | | | | [place] [address] | Pacemaker; | | | | | [phone] | Sinoatrial node | | | | | | dysfunction (HCC) | | | | | | with symptomatic | | | | | | bradycardia | +--------+ + + + + | 08/21/ | Implant | Cardiology | Daljit Singletary, | Remote Device | | 2019 | Monitor | | MD [address] | Interrogation | | | | | [place], | (Primary Dx); | | | | | [place] [address] | Pacemaker; | | | | | [phone] | Sinoatrial node | | | | | | dysfunction (HCC) | | | | | | with symptomatic | | | | | | bradycardia | +--------+ + + + + | 08/21/ | Implant | Cardiology | Daljit Singletary, | Remote Device | | 2019 | Monitor | | MD [address] | Interrogation | | | | | [place], | (Primary Dx); | | | | | [place] [address] | Pacemaker; | | | | | [phone] | Sinoatrial node | | | | | | dysfunction (HCC) | | | | | | with symptomatic | | | | | | bradycardia | +--------+ + + + + | 08/21/ | Implant | Cardiology | Daljit Singletary, | Remote Device | | 2019 | Monitor | | MD [address] | Interrogation | | | | | [place], | (Primary Dx); | | | | | [place] [address] | Pacemaker; | | | | | [phone] | Sinoatrial node | | | | | | dysfunction (HCC) | | | | | | with symptomatic | | | | | | bradycardia | +--------+ + + + + | 08/21/ | Implant | Cardiology | Daljit Singletary, | Remote Device | | 2019 | Monitor | | MD [address] | Interrogation | | | | | [place], | (Primary Dx); | | | | | [place] [address] | Pacemaker; | | | | | [phone] | Sinoatrial node | | | | [...] | | | | | | [place] [address] | | | | | | [phone] | | | | | | | | +--------+ + + + + documented as of this encounter Visit Diagnoses Not on filedocumented in this encounter"
--- OUTSIDE RECORDS SUMMARY | ~2020-08-06 | XMS | Encounter Summary ---
Demographics + + + | Address | [address] | | | [place] [address] | + + + | Home Phone [...] Providers + +------+ + | Care Corporate Associate Name | Role | Phone | + +------+ + | Kirk French MD | PCP | | + +------+ + Encounter Details +--------+ + + + + | Date | Type | Department | Care Team | Description | +--------+ + + + + | 01/07/ | Hospital | [facility] | Conversion | | | 2017 | Encounter | [facility] | Transaction, | | | | | ULTRASOUND [address] | Provider Unknown | | | | | [address] | [phone] | | | | | [place] | | | | | | [address] | Kirk French | | | | | [phone] | MD [address] | | | | | | [address] [place], | | | | | | [place] [address] | | | | | | [phone] | | | | | | | [...] + + + +---------+ + + | Newton-3 Fatty | CAPS, one capsule [...] | Monitor | | MD [address] | Interrogation | | | | | [place], | (Primary Dx); | | | | | [place] [address] | Pacemaker; | | | | | [phone] | Sinoatrial node | | | | | | dysfunction (HCC) | | | | | | with symptomatic | | | | | | bradycardia | +--------+ + + + + | 08/21/ | Implant | Cardiology | Daljit Singletary, | Remote Device | | 2019 | Monitor | | MD [address] | Interrogation | | | | | [place], | (Primary Dx); | | | | | [place] [address] | Pacemaker; | | | | | [phone] | Sinoatrial node | | | | | | dysfunction (HCC) | | | | | | with symptomatic | | | | | | bradycardia | +--------+ + + + + | 08/21/ | Implant | Cardiology | Daljit Singletary, | Remote Device | | 2019 | Monitor | | MD [address] | Interrogation | | | | | [place], | (Primary Dx); | | | | | [place] [address] | Pacemaker; | | | | | [phone] | Sinoatrial node | | | | [...] Dx); | | | | | [place] [address] | Pacemaker; | | | | | [phone] | Sinoatrial node | | | | | | dysfunction (HCC) | | | | | | with symptomatic | | | | | | bradycardia | +--------+ + + + + | 08/21/ | Implant | Cardiology | Daljit Singletary | Remote Device | | 2019 | Monitor | | MD [address] | Interrogation | | | | | [place], | (Primary Dx); | | | | | [place] [address] | Pacemaker; | | | | | [phone] | Sinoatrial node | | | | [...] | | | | | | [place] [address] | | | | | | [phone] | | | | | | | | +--------+ + + + + documented as of this encounter Visit Diagnoses Not on filedocumented in this encounter"
--- OUTSIDE RECORDS SUMMARY | ~2020-08-06 | XMS | Encounter Summary ---
Demographics + + + | Address | [address] [place] [address] [address] | | | [place] [address] | + + + | Home Phone [...] [place] | | | | | [address] | | + + + + + Care Team Providers + +------+ + | Care Sap Pi Architect Name | Role | Phone | [...] [facility] [address] | MD [address] | | | | | [address] [place] | [place], [place] | | | | | for Health and | [address] | | | | | [facility] 2 | [phone] | | | | | [place], [place] | | | | | | [address] | | | | | | [phone] | | | +--------+ + + + [...] - 03/2019 4:09 PM PSTPres[facility] [place] ele[facility] Encounter - Allyson Diehl RN - [...] 90 days supply and pls send at [id number] - [place], [place] - [address] [phone] Provider / Specialty: Dr. Rios Call back [...]
--- OUTSIDE RECORDS SUMMARY | ~2020-08-06 | XMS | Encounter Summary ---
Demographics + + + | Address | [address] | | | [place] [address] | + + + | Home Phone [...] Providers + +------+ + | Care Photo Stylist Name | Role | Phone | + [...] + + | 08/29/ | Office | [facility] | [place], | Essential | | 2015 | Visit | CARDIOLOGY [address] | PARISA [place] [address] | hypertension | | | | [place], | [place], | (Primary Dx); | | | | [place] [address] | [place] [address] | Coronary artery | | | | [phone] | [phone] | disease involving | | | | | | white mountain coronary | | | | | [...] was advised to come back to the [facility] to furt her his evaluation. He was seen in the emergency room at [facility] on 08/23/20 15 and the ER physician reviewed his chart saying that there were 2 ultrasounds from [facility] both of them are clear [...] 3rd dose, call 911 100 tablet 3 Hardy-3 Fatty Acids (SALMON OIL-1000 PO) CAPS, one [...] Daily. to reduce urinary frequenc y Lot #[id number], exp 07/2016 (Patient taking differently: Take 8 mg by mouth Daily. PATIENT STA YOSELIN NO LONGER TAKING THIS MEDICATION. STATED ON 08/29/2015. to reduce urinary frequency Lot #[id number], exp 07/2016) 21 capsule 0 Specialty Vitamins [...] PLTEX 163 07/26/2014 I reviewed records from [facility] for emergency department visit o n [...] brought reports to the emergency room at [facility] and according to the not es [...] dizziness. He is in class I-II of [place] [employer] functional class. T here are [...] this chart may have been created with [employer] voice recognition software. Occasi onal wrong-word [...] 2019 | Monitor | | [address] | Interrogation | | | | | [place], | (Primary Dx); | | | | | [place] [address] | Pacemaker; | | | | | [phone] | Sinoatrial node | | | | | | dysfunction (HCC) | | | | | | with symptomatic | | | | | | bradycardia | +--------+ + + + + | 08/21/ | Implant | Cardiology | Sydni Singletary, | Remote Device | | 2019 | Monitor | | MD [address] | Interrogation | | | | | [place], | (Primary Dx); | | | | | [place] [address] | Pacemaker; | | | | | [phone] | Sinoatrial node | | | | | | dysfunction (HCC) | | | | | | with symptomatic | | | | | | bradycardia | +--------+ + + + + | 08/21/ | Implant | Cardiology | Sydni Singletary, | Remote Device | | 2019 | Monitor | | MD [address] | Interrogation | | | | | [place], | (Primary Dx); | | | | | [place] [address] | Pacemaker; | | | | | [phone] | Sinoatrial node | | | | | | dysfunction (HCC) | | | | | | with symptomatic | | | | | | bradycardia | +--------+ + + + + | 08/21/ | Implant | Cardiology | Sydni Singletary, | Remote Device | | 2019 | Monitor | | MD [address] | Interrogation | | | | | [place], | (Primary Dx); | | | | | [place] [address] | Pacemaker; | | | | | [phone] | Sinoatrial node | | | | | | dysfunction (HCC) | | | | | | with symptomatic | | | | | | bradycardia | +--------+ + + + + | 08/21/ | Implant | Cardiology | Sydni Singletary, | Remote Device | | 2019 | Monitor | | MD [address] | Interrogation | | | | | [place], | (Primary Dx); | | | | | [place] [address] | Pacemaker; | | | | | [phone] | Sinoatrial node | | | | [...] | | | | | | [place], | | | | | | [place] [address] | | | | | | [phone] | | | | | | | [...] the | | | | PDT | white [place] coronary | results section. | | [...] the groin through the popliteal fossa | [facility] | | in both lower extremities.. [...] conveyed to the ordering provider, by the program consultant, | | | immediately following the [...] to the ordering provider, by the | |program consultant, immediately following the exam. | | | | | |Dictated and Signed by: Emmanuel Gibbons MD | | Electronically signed: 08/29/2015 3:25 PM | + + + + + + + | Performing | Address | City/State/Zipcode | Phone Number | | Organization | | | | + + + + + | [facility] | [address] 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
--- OUTSIDE RECORDS SUMMARY | ~2020-08-06 | XMS | Encounter Summary ---
Demographics + + + | Address | [address] | | | [place] [address] | + + + | Home Phone [...] Providers + +------+ + | Care Casino Attendant Name | Role | Phone | [...] [address] | | | | | [place], | [place], | | | | | [place] [address] | [place] [address] | | | | | [phone] | [phone] | | | | | | | [...] | Monitor | | MD [address] | Interrogation | | | | | [place], | (Primary Dx); | | | | | [place] [address] | Pacemaker; | | | | | [phone] | Sinoatrial node | | | | | | dysfunction ([facility]) | | | | | | with symptomatic | | | | | | bradycardia | +--------+ + + + + | 08/21/ | Implant | Cardiology | Daljit Singletary | Remote Device | | 2020 | Monitor | | MD [address] | Interrogation | | | | | [place], | (Primary Dx); | | | | | [place] [address] | Pacemaker; | | | | | [phone] | Sinoatrial node | | | | | | dysfunction (HCC) | | | | | | with symptomatic | | | | | | bradycardia | +--------+ + + + + | 08/21/ | Implant | Cardiology | Daljit Singletary, | Remote Device | | 2019 | Monitor | | MD [address] | Interrogation | | | | | [place], | (Primary Dx); | | | | | [place] [address] | Pacemaker; | | | | | [phone] | Sinoatrial node | | | | | | dysfunction ([facility]) | | | | | | with symptomatic | | | | | | bradycardia | +--------+ + + + + | 08/21/ | Implant | Cardiology | Daljit Singletary, | Remote Device | | 2019 | Monitor | | MD [address] [place] | Interrogation | | | | | [place], | (Primary Dx); | | | | | [place] [address] | Pacemaker; | | | | | [phone] | Sinoatrial node | | | | | | dysfunction ([facility]) | | | | | | with symptomatic | | | | | | bradycardia | +--------+ + + + + | 08/21/ | Implant | Cardiology | Daljit Singletary, | Remote Device | | 2019 | Monitor | | MD [address] | Interrogation | | | | | [place], | (Primary Dx); | | | | | [place] [address] | Pacemaker; | | | | | [phone] | Sinoatrial node | | | | [...] | | | | | | [place], | | | | | | [place] [address] | | | | | | [phone] | | | | | | | [...] | EXTERNAL LAB: PITO | Routin | 04/11/2018 | | Results [...]
--- OUTSIDE RECORDS SUMMARY | ~2020-08-06 | XMS | Encounter Summary ---
Demographics + + + | Address | [address] [place] [address] [address] | | | [place] [address] | + + + | Home Phone [...] [place] | | | | | [address] | | + + + + + Care Team Providers + +------+ + | Care Language Instructor Name | Role | Phone | [...] H2 [address] | MD [address] [facility] | | | | | [address] | [place], [place] | | | | | for Health and | [address] | | | | | [facility] 2 | [phone] | | | | | [place], [place] | | | | | | [address] | | | | | | [phone] | | | +--------+ + + + [...] he is agreeable to completing testing at [facility]. Briefly discussed COVID testing pr ior to procedure, can do locally or here at [facility]. He plans on travelling with his dogs (and S.O. I presume) to [place]. He is a little worried his GI symptoms are worsening, he had some abdominal cramping today and took dicyclomine which helped, but he hasn't needed dicyclomine in the last 6 weeks. [place] ssurance provided, and continuing workup is a [...] like he is wanting to come to [facility] when it's time. elephone Encounter [...] He said maybe he should come to [facility] for it. Provider / Specialty: wanda henning/ Blanca Call back number confirmed?: yes Best call back number / ext: [phone] / noted under contact or phone tab. Caller would like a call back to discuss. Ok to leave a detailed message?: yes documented in this encou nter Plan of Treatment Not on filedocumented as of this encounter Visit Diagnoses Not on filedocumented in this encounter
--- OUTSIDE RECORDS SUMMARY | ~2020-08-06 | XMS | Encounter Summary ---
Demographics + + + | Address | [address] | | | [place] [address] | + + + | Home Phone [...] Providers + +------+ + | Care Family Court Justice Name | Role | Phone | + +------+ + PCP | Unavailable | + +------+ + Encounter Details +--------+ + + + + | Date | Type | Department | Care Team | Description | +--------+ + + + + | 01/31/ | Hospital | [facility] | | | | 2008 | Encounter | MED CTR EMERGENCY | | | | | | CENTER [address] | | | | | | [place] | | | | | | [address] | | | | | | [phone] | | | +--------+ + + + [...] Dx); | | | | | [place] [address] | Pacemaker; | | | | | [phone] | Sinoatrial node | | | | [...] Dx); | | | | | [place] [address] | Pacemaker; | | | | | [phone] | Sinoatrial node | | | | [...] Dx); | | | | | [place] [address] | Pacemaker; | | | | | [phone] | Sinoatrial node | | | | [...] Dx); | | | | | [place] [address] | Pacemaker; | | | | | [phone] | Sinoatrial node | | | | [...] Dx); | | | | | [place] [address] | Pacemaker; | | | | | [phone] | Sinoatrial node | | | | [...] | | | | | | [place] [address] | | | | | | [phone] | | | | | | | | +--------+ + + + + documented as of this encounter Visit Diagnoses Not on filedocumented in this encounter"
--- OUTSIDE RECORDS SUMMARY | ~2020-08-06 | XMS | Encounter Summary ---
Demographics + + + | Address | [address] | | | [place] [address] | + + + | Home Phone [...] Providers + +------+ + | Care Adjunct Psychology Professor Name | Role | Phone [...] | Visit | CARDIOLOGY [address] | SOFTWARE SECURITY CONSULTANT [address] | Dx) | | | | [place], | [place] [facility], [place] | | | | | [place] [address] | [address] | | | | | [phone] | | | +--------+---------+ + + + [...] Sanchez Date: December 21, 2012 : 1960 Construction Foreman: PARISA Velazquez Device Environmental Health Safety Manager: [employer] Sense (mV) Impedance (?) Capture (V) Capture (ms) A Lead 4-5.6 423 1.5 0.09 RV Lead >31.36 539 2.0 0.09 LV Lead Battery Impedance (?): 301 Battery Voltage (V): 2.8 AR Interval (ms): 140 AR Interval (ms): 210 VA Conduction: Mode Switch Events: N/A % of time: -COPY MANAGER: 0.6 AP-COPY MANAGER: 1.3 -VS: 23.9 AP-VS: 74.2 COPY MANAGER: Magnetic Rate: 85 LINDA: 65 LEAH: [...] Interrogation | | | | | [place], | (Primary Dx); | | | | | [place] [address] | Pacemaker; | | | | | [phone] | Sinoatrial node | | | | | | dysfunction (HCC) | | | | | | with symptomatic | | | | | | bradycardia | +--------+ + + + + | 08/21/ | Implant | Cardiology | Daljit Singletary, | Remote Device | | 2019 | Monitor | | [address] | Interrogation | | | | | [place], | (Primary Dx); | | | | | [place] [address] | Pacemaker; | | | | | [phone] | Sinoatrial node | | | | | | dysfunction (HCC) | | | | | | with symptomatic | | | | | | bradycardia | +--------+ + + + + | 08/21/ | Implant | Cardiology | Daljit Singletary, | Remote Device | | 2019 | Monitor | | MD [address] | Interrogation | | | | | [place], | (Primary Dx); | | | | | [place] [address] | Pacemaker; | | | | | [phone] | Sinoatrial node | | | | | | dysfunction (HCC) | | | | | | with symptomatic | | | | | | bradycardia | +--------+ + + + + | 08/21/ | Implant | Cardiology | Daljit Singletary, | Remote Device | | 2019 | Monitor | | MD [address] | Interrogation | | | | | [place], | (Primary Dx); | | | | | [place] [address] | Pacemaker; | | | | | [phone] | Sinoatrial node | | | | | | dysfunction (HCC) | | | | | | with symptomatic | | | | | | bradycardia | +--------+ + + + + | 08/21/ | Implant | Cardiology | Daljit Singletary, | Remote Device | | 2020 | Monitor | | MD [address] | Interrogation | | | | | [place], | (Primary Dx); | | | | | [place] [address] | Pacemaker; | | | | | [phone] | Sinoatrial node | | | | [...] | | | | | | [place], | | | | | | [place] [address] | | | | | | [phone] | | | | | | | [...] specified cardiac dysrhythmias | + + | Remote Device Interrogation [...]
--- OUTSIDE RECORDS SUMMARY | ~2020-08-06 | XMS | Encounter Summary ---
Demographics + + + | Address | [address] | | | [place] [address] | + + + | Home Phone [...] Providers + +------+ + | Care Inclusion Special Education Teacher Name | Role | [...] | CARDIOLOGY [address] | MD [address] [place] | | | | | [place], | [place], | | | | | [place] [address] | [place] [address] | | | | | [phone] | [phone] | | | | | | | [...] | Pacemaker; | | | | | [phone] | Sinoatrial node | | | | [...] Dx); | | | | | [place] [address] | Pacemaker; | | | | | [phone] | Sinoatrial node | | | | [...] Dx); | | | | | [place] [address] | Pacemaker; | | | | | [phone] | Sinoatrial node | | | | [...] Dx); | | | | | [place] [address] | Pacemaker; | | | | | [phone] | Sinoatrial node | | | | [...] Dx); | | | | | [place] [address] | Pacemaker; | | | | | [phone] | Sinoatrial node | | | | [...] | | | | | | [place] [address] | | | | | | [phone] | | | | | | | | +--------+ + + + + documented as of this encounter Visit Diagnoses Not on filedocumented in this encounter"
--- OUTSIDE RECORDS SUMMARY | ~2020-08-06 | XMS | Encounter Summary ---
Demographics + + + | Address | [address] | | | [place] [address] | + + + | Home Phone [...] Providers + +------+ + | Care Ground Equipment Mechanic Name | Role | Phone [...] + | 06/28/ | Refill | [facility] | Michael Amanda, | Medication Refill | | 2012 | | [facility] | DO [address] | | | | | [address] | [place] | | | | | [place], [place] | [address] | | | | | [address] | | | | | | [phone] | | | +--------+--------+ + + + [...] on 07/12 with youElectronically signed by Omaira Bedyoa RN at 0 07/11/2013 9:11 AM PDTTelephone [...] Interrogation | | | | | [place], | (Primary Dx); | | | | | [place] [address] | Pacemaker; | | | | | [phone] | Sinoatrial node | | | | | | dysfunction (HCC) | | | | | | with symptomatic | | | | | | bradycardia | +--------+ + + + + | 08/21/ | Implant | Cardiology | Daljit Singletary, | Remote Device | | 2020 | Monitor | | MD [address] | Interrogation | | | | | [place], | (Primary Dx); | | | | | [place] [address] | Pacemaker; | | | | | [phone] | Sinoatrial node | | | | | | dysfunction (HCC) | | | | | | with symptomatic | | | | | | bradycardia | +--------+ + + + + | 08/21/ | Implant | Cardiology | Daljit Singletary, | Remote Device | | 2019 | Monitor | | MD [address] | Interrogation | | | | | [place], | (Primary Dx); | | | | | [place] [address] | Pacemaker; | | | | | [phone] | Sinoatrial node | | | | | | dysfunction (HCC) | | | | | | with symptomatic | | | | | | bradycardia | +--------+ + + + + | 08/21/ | Implant | Cardiology | Daljit Singletary, | Remote Device | | 2019 | Monitor | | MD [address] | Interrogation | | | | | [place], | (Primary Dx); | | | | | [place] [address] | Pacemaker; | | | | | [phone] | Sinoatrial node | | | | | | dysfunction (HCC) | | | | | | with symptomatic | | | | | | bradycardia | +--------+ + + + + | 08/21/ | Implant | Cardiology | Daljit Singletary, | Remote Device | | 2019 | Monitor | | MD [address] | Interrogation | | | | | [place], | (Primary Dx); | | | | | [place] [address] | Pacemaker; | | | | | [phone] | Sinoatrial node | | | | [...] | | | | | | [place] [address] | | | | | | [phone] | | | | | | | | +--------+ + + + + documented as of this encounter Visit Diagnoses Not on filedocumented in this encounter"
--- OUTSIDE RECORDS SUMMARY | ~2020-08-06 | XMS | Encounter Summary ---
Demographics + + + | Address | [address] | | | [place] [address] | + + + | Home Phone [...] + +------+ + | Care Surface Grinder Tender Name | Role | Phone | + +------+ + PCP | Unavailable | + +------+ + Encounter Details +--------+ + + + + | Date | Type | Department | Care Team | Description | +--------+ + + + + | 10/29/ | Hospital | [facility] | Pia Akhtar | | | 2003 | Encounter | CONVERSION DEP [address] | MD [address] | | | | | [address] | [address] | | | | | [place] | [place] [address] | | | | | [address] | [phone] | | | | | [phone] | | | +--------+ + + + [...] 2019 | Monitor | | [address] | Interrogation | | | | | [place], | (Primary Dx); | | | | | [place] [address] | Pacemaker; | | | | | [phone] | Sinoatrial node | | | | [...] Dx); | | | | | [place] [address] | Pacemaker; | | | | | [phone] | Sinoatrial node | | | | [...] Dx); | | | | | [place] [address] | Pacemaker; | | | | | [phone] | Sinoatrial node | | | | [...] Dx); | | | | | [place] [address] | Pacemaker; | | | | | [phone] | Sinoatrial node | | | | [...] Dx); | | | | | [place] [address] | Pacemaker; | | | | | [phone] | Sinoatrial node | | | | [...] | | | | | | [place] [address] | | | | | | [phone] | | | | | | | | +--------+ + + + + documented as of this encounter Visit Diagnoses Not on filedocumented in this encounter"
--- OUTSIDE RECORDS SUMMARY | ~2020-08-06 | XMS | Encounter Summary ---
Demographics + + + | Address | [address] | | | [place] [address] | + + + | Home Phone [...] Providers + +------+ + | Care Water Hauler Name | Role | Phone | [...] 06/24/ | Telephone | [facility] | Daljit Singletary, | Lab Order | | 2017 | | CARDIOLOGY [address] | [address] [place] | | | | | [place], | [place], | | | | | [place] [address] | [place] [address] | | | | | [phone] | [phone] | | | | | | | [...] at 15:54 elephone Encounter - Rachel Carrasquillo Test Tube Maker - 06/24/2018 3:42 PM PDTPatient is needing a fasting L ipid panel drawn. Voicemail not yet set up. Electronically signed by Rachel Carrasquillo Test Tube Maker at 01/2018 3:42 PM PDTdocumented in this [...] Interrogation | | | | | [place], | (Primary Dx); | | | | | [place] [address] | Pacemaker; | | | | | [phone] | Sinoatrial node | | | | [...] Interrogation | | | | | [place], | (Primary Dx); | | | | | [place] [address] | Pacemaker; | | | | | [phone] | Sinoatrial node | | | | [...] Interrogation | | | | | [place], | (Primary Dx); | | | | | [place] [address] | Pacemaker; | | | | | [phone] | Sinoatrial node | | | | [...] Interrogation | | | | | [place], | (Primary Dx); | | | | | [place] [address] | Pacemaker; | | | | | [phone] | Sinoatrial node | | | | [...] Interrogation | | | | | [place], | (Primary Dx); | | | | | [place] [address] | Pacemaker; | | | | | [phone] | Sinoatrial node | | | | [...] | | | | | [place], | | | | | | [place] [address] | | | | | | [phone] | | | | | | | [...] 06/24/2018, Expires: | | | | | [place] coronary | 06/24/2019 | | | | [...] [place] heart without | | angina pectoris - [...]
--- OUTSIDE RECORDS SUMMARY | ~2020-08-06 | XMS | Encounter Summary ---
Demographics + + + | Address | [address] | | | [place] [address] | + + + | Home Phone [...] + +------+ + | Care Human Resources File Clerk Name | Role | Phone | + +------+ + | Kirk French MD | PCP | | + +------+ + Reason for Visit + +--------+ + | Reason | Onset | Comments | | | Date | | + +--------+ + | Blood Pressure | 04/27/ | Low reading | | | 2017 | | + +--------+ + Encounter Details +--------+ + + + + | Date | Type | Department | Care Team | Description | +--------+ + + + + | 04/27/ | Telephone | [facility] [place] | Silvia, | Blood Pressure (Low | | 2016 | | CARDIOLOGY [address] | PARISA Vernon [address] | reading) | | | | [place], | [place], | | | | | [place] [address] | [place] [address] | | | | | [phone] | [phone] | | | | | | | [...] 04/28/2017 11:16 AM PDTFred called again s desireeing he was in the ED on Wednesday [...] high and low blood pres sure. elephone Encounbridger r - Emma Gale - 04/27/2017 4:13 PM PDTPatient called office returning Jay's voicem ail that was left. I confirmed with patient that the tentative 1630 apt was cancelled. Abdoul wynn states that Dr. Brasher lowered the dosage [...] Amilcar to do a BP log. Called Amiclar to see if he has these readi [...] | Monitor | | MD [address] [place] | Interrogation | | | | | [place], | (Primary Dx); | | | | | [place] [address] | Pacemaker; | | | | | [phone] | Sinoatrial node | | | | | | dysfunction (HCC) | | | | | | with symptomatic | | | | | | bradycardia | +--------+ + + + + | 08/21/ | Implant | Cardiology | Daljit Singletary, | Remote Device | | 2019 | Monitor | | MD [address] [place] | Interrogation | | | | | [place], | (Primary Dx); | | | | | [place] [address] | Pacemaker; | | | | | [phone] | Sinoatrial node | | | | | | dysfunction (HCC) | | | | | | with symptomatic | | | | | | bradycardia | +--------+ + + + + | 08/21/ | Implant | Cardiology | Daljit Singletary, | Remote Device | | 2019 | Monitor | | MD [address] [place] | Interrogation | | | | | [place], | (Primary Dx); | | | | | [place] [address] | Pacemaker; | | | | | [phone] | Sinoatrial node | | | | | | dysfunction (HCC) | | | | | | with symptomatic | | | | | | bradycardia | +--------+ + + + + | 08/21/ | Implant | Cardiology | Daljit Singletary, | Remote Device | | 2019 | Monitor | | MD [address] [place] | Interrogation | | | | | [place], | (Primary Dx); | | | | | [place] [address] | Pacemaker; | | | | | [phone] | Sinoatrial node | | | | | | dysfunction (HCC) | | | | | | with symptomatic | | | | | | bradycardia | +--------+ + + + + | 08/21/ | Implant | Cardiology | Daljit Singletary, | Remote Device | | 2019 | Monitor | | MD [address] [place] | Interrogation | | | | | [place], | (Primary Dx); | | | | | [place] [address] | Pacemaker; | | | | | [phone] | Sinoatrial node | | | | [...] | | | | | | [place] [address] | | | | | | [phone] | | | | | | | | +--------+ + + + + documented as of this encounter Visit Diagnoses Not on filedocumented in this encounter
--- OUTSIDE RECORDS SUMMARY | ~2020-08-06 | XMS | Encounter Summary ---
Demographics + + + | Address | [address] | | | [place] [address] | + + + | Home Phone [...] Providers + +------+ + | Care Concrete Carpenter Name | Role | Phone | + +------+ + PCP | Unavailable | + +------+ + Encounter Details +--------+ + + + + | Date | Type | Department | Care Team | Description | +--------+ + + + + | 06/23/ | Hospital | [facility] | Arthur Page MD | | | 2007 - | Encounter | MED CTR MED ONC | [address] [facility] | | | | | [address] [place] | [place] | | | 06/25/ | | [place] [address] | [address] | | | 2007 | | [phone] | | | +--------+ + + + [...] Dx); | | | | | [place] [address] | Pacemaker; | | | | | [phone] | Sinoatrial node | | | | [...] Dx); | | | | | [place] [address] | Pacemaker; | | | | | [phone] | Sinoatrial node | | | | | | dysfunction (HCC) | | | | | | with symptomatic | | | | | | bradycardia | +--------+ + + + + | 08/21/ | Implant | Cardiology | Daljit Singletary, | Remote Device | | 2020 | Monitor | | MD [address] | Interrogation | | | | | [place], | (Primary Dx); | | | | | [place] [address] | Pacemaker; | | | | | [phone] | Sinoatrial node | | | | | | dysfunction ([facility]) | | | | | | with symptomatic | | | | | | bradycardia | +--------+ + + + + | 08/21/ | Implant | Cardiology | Daljit Singletary, | Remote Device | | 2019 | Monitor | | MD [address] | Interrogation | | | | | [place], | (Primary Dx); | | | | | [place] [address] | Pacemaker; | | | | | [phone] | Sinoatrial node | | | | | | dysfunction ([facility]) | | | | | | with symptomatic | | | | | | bradycardia | +--------+ + + + + | 08/21/ | Implant | Cardiology | Daljit Singletary, | Remote Device | | 2019 | Monitor | | MD [address] [place] | Interrogation | | | | | [place], | (Primary Dx); | | | | | [place] [address] | Pacemaker; | | | | | [phone] | Sinoatrial node | | | | [...] | | | | | | [place] [address] | | | | | | [phone] | | | | | | | | +--------+ + + + + documented as of this encounter Visit Diagnoses Not on filedocumented in this encounter"
--- OUTSIDE RECORDS SUMMARY | ~2020-08-06 | XMS | Encounter Summary ---
Demographics + + + | Address | [address] | | | [place] [address] | + + + | Home Phone [...] | type | [address] | [place] [address] | | | | | Procedures | [address] [place] | [place], | | | | | FUP | [place], [place] | [place] [address] | | | | | | [address] | Phone: | | | | | | Phone: | [phone] | | | | | | [phone] | Fax: | | | | | | Fax: | [phone] | | | | | | [phone] | | +--------+ + + + + [...] | | CENTER [address] [place] | [address] [place] | (Primary Dx) | | | | [place], [place] | [place] [address] | | | | | [address] | [phone] | | | | | [phone] | | | +--------+ + + + [...] + + + +---------+ + + | Shafter-3 Fatty | CAPS, one capsule by | [...] than PVC'S. 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 ranki Pham MD - 06/20/2018 6 :54 PM PDT [facility] Moe Sanchez Emergency Department Encounter Note [address] [place] [address] PCP:Kirk French MD [phone] CHIEF COMPLAINT: Chief [...] PVC'S. 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 He reports that earlier today while doing [...] coronary artery disease denies ever having an HI or being stented. His symptoms lasted for approximately 30 minutes. Were sudden in onset with resolution over this time course. No as sociated trauma or other associated symptoms. Language line tile picker made available and used to collect historical [...] by Dr. Gambino at [facility] on 01/30/2013. Patient had spontaneous PVCs [...] to go back in 3 days to [place] for an attempt of ablation under [...] Left Heart Cath, 02/29/2012, LVEF is 65%, [facility] Medicine Myocardial Gated Stress Test, 05/25/2009, EF 53 % during rest and 52% during stress. [facility], [place], [place]. Persantine Sestamibi Stress Test, 06/14/2008, LVEF is 60%, [facility] 12/25/13, shows noncritical coronary artery disease, [...] SERIAL# DATE IMPLANTED GENERATOR Medtronic DDD ADDR01 [id number] 06/14/09 RV LEAD Medtronic Active Bipolar CapSureFix 4076 [id number] 06/14/09 A LEAD Medtronic Active Bipolar CapSurFix 4076 [id number] 06/14/09 Depression with anxiety 12/24/2017 Priority: Medium Coronary artery disease involving [place] coronary artery of [place] heart without angina pectoris 12/21/2013 Priority: Medium [...] tissue attenuation cannot completely be ruled out. [facility] 12/25/13, shows non critical coronary [...] Last Updated: 12/24/2017 Lower back injury ([facility]) 1981 1985 Hyperlipidemia, mixed Priority: Low [...] 07/26/[address] Angiogram chest w/constrast 05/26/14 [facility] Hypoglycemia 09/20/2012 Bipolar disorder (HCC) Mixed anxiety [...] Procedure: COLONOSCOPY; Surgeon: Emmanuel Daniel MD; Location: [facility] MEDICAL PROCEDURE UNIT HARDWARE REMOVAL KNEE SURGERY 2003 meniscus-right LAMINECTOMY 1991 L3-4 LUMBAR DISCECTOMY 1991 L3-4 LUMBAR FUSION 01/2011 6 spine fusions neck fusion 08/10/2012 [place] NECK SURGERY PACEMAKER PLACEMENT 06/14/09 SHOULDER SURGERY 03/22/13 SINUS SURGERY 1997 SPINAL FUSION STOMACH SURGERY UPPER GASTROINTESTINAL ENDOSCOPY N/A 12/24/2017 Procedure: EGD; Surgeon: Emmanuel Daniel MD; Location: [facility] MEDICAL PROCEDURE UNIT VASECTOMY CURRENT [...] patient that appointment is due in Cardiology [facility] [...] DOSE, CALL 911Disp-100 tablet, R-3 , Normal Shafter-3 Fatty Acids (SALMON OIL-1000 PO) CAPS, one capsule by mouth daily twice daily ONE TOUCH DELICA LANCETS MISC Check glucose as needed for hypoglycemiaDisp-100 each, R-3, N ormal pravastatin (PRAVACHOL) 40 MG tablet take 1 tablet by mouth NIGHTLYDisp-90 tablet, R-3, Nor mal promethazine (PHENERGAN) 25 mg tablet Take 25 mg by mouth every 8 hours as needed.Medicatio n has a BLACK BOX Warning or Severe Contraindications. Consult references such as [employer] for further information. rOPINIrole (REQUIP) 1 mg tablet Take 1 tablet by mouth nightly.R-0, Historical Med UNABLE TO FIND Take 1 tablet by mouth Daily. MARINE-Q3Lnvpmqbsfx Med UNCODED MEDICATION Diagnosis: Obstructive Sleep Apnea ICD-9: 327.23 Length of Need: 99 MonthsDisp-1 Device, R-0, [id number] -Nasal Pillows, S6884-Wrwjd Mask, A 7030- Full Face Mask, C1204-Blvcco Humidifier, Q6409-Xlcbry Tubing, Y5764-Patqnutp, L4450-Hs instrap A7039/A703 8-Filters valACYclovir (VALTREX) 1 g [...] hospital for cardiac workup in this setting, howev er The patient is AAOx4, clinically sober, [...] Internal Medicine Contact information: [address] [id number] Daljit Singletary MD. Call today. Specialty: Cardiology Contact information: [address] [place] [facility] [address] Discharge Medication List as of 06/20/2018 21:55 Portions of this chart were created with [employer] voice recognition software. Inadvertent so und alike [...] | Monitor | | MD [address] [place] | Interrogation | | | | | [place], | (Primary Dx); | | | | | [place] [address] | Pacemaker; | | | | | [phone] | Sinoatrial node | | | | | | dysfunction (HCC) | | | | | | with symptomatic | | | | | | bradycardia | +--------+ + + + + | 08/21/ | Implant | Cardiology | Daljit Singletary, | Remote Device | | 2019 | Monitor | | MD [address] [place] | Interrogation | | | | | [place], | (Primary Dx); | | | | | [place] [address] | Pacemaker; | | | | | [phone] | Sinoatrial node | | | | | | dysfunction (HCC) | | | | | | with symptomatic | | | | | | bradycardia | +--------+ + + + + | 08/21/ | Implant | Cardiology | Daljit Singletary, | Remote Device | | 2019 | Monitor | | MD [address] [place] | Interrogation | | | | | [place], | (Primary Dx); | | | | | [place] [address] | Pacemaker; | | | | | [phone] | Sinoatrial node | | | | | | dysfunction (HCC) | | | | | | with symptomatic | | | | | | bradycardia | +--------+ + + + + | 08/21/ | Implant | Cardiology | Daljit Singletary, | Remote Device | | 2019 | Monitor | | MD [address] [place] | Interrogation | | | | | [place], | (Primary Dx); | | | | | [place] [address] | Pacemaker; | | | | | [phone] | Sinoatrial node | | | | | | dysfunction (HCC) | | | | | | with symptomatic | | | | | | bradycardia | +--------+ + + + + | 08/21/ | Implant | Cardiology | Daljit Singletary, | Remote Device | | 2019 | Monitor | | MD [address] [place] | Interrogation | | | | | [place], | (Primary Dx); | | | | | [place] [address] | Pacemaker; | | | | | [phone] | Sinoatrial node | | | | [...] | | | | | | [place], | | | | | | [place] [address] | | | | | | [phone] | | | | | | | [...] | | n - | | | 06/20/ | | | 2017 | | | [...] W?MRN: | | | | | | [id number] | | | [id number] | | | his | | | [...] | | | ent/60 | | | [id number] | | | [phone] | | | [...] | | | ext. | | | [address] | | | or go | | [...] | | | M.D. | | | Scanning Clerk | | | al | | [...] | | | | ANGELA MARADIAGA MD ([id number]) | | | | | | on [...] | | | | | | [employer] | | | | | [...] [address] | [place] | [phone] | | [facility] | | [address] | | | - LABORATORY | | [...] BNP | 82 | <100 pg/mL | [place] | | [...] [address] | [place] | [phone] | | [facility] | | [address] | | | - LABORATORY | | [...] | | | | | | [employer] | | | | | [...] [address] | [place] | [phone] | | [facility] | | [address] | | | - LABORATORY | | [...] | non- | FILTRATION | mL/min/1.73m2 | [facility] | | | [employer] | RATE,ESTIMATED | | MEDICAL | | | | mL/min/1.90r1Irjc than | | CENTER - | | [...] 0.7 | 0.1 - 1.5 mg/dL | YESSY | | | Total | | | [...] [address] | [place] | [phone] | | [facility] | | [address] | | | - LABORATORY | | [...] | | Cells | | | [facility] | | [...] Basophils | | K/uL | STJuan Diego [place]IA [...] [address] | [place] | [phone] | | [facility] | | [address] | | | - LABORATORY | | [...] | | | | ANGELA MARADIAGA MD ([id number]) | | | | | | on [...]
--- OUTSIDE RECORDS SUMMARY | ~2020-08-06 | XMS | Encounter Summary ---
Demographics + + + | Address | [address] | | | [place] [address] | + + + | Home Phone [...] | 09/04/ | Telephone | [facility] | Emmanuel Daniel MD | Other | | 2019 | | GASTROENTEROLOGY | [address], [place] | | | | | [address] [place] | [address] [place], [place] | | | | | [address] [place], [place] | [address] | | | | | [address] | | | | | | [phone] | | | +--------+ + + + [...] 09/07/2019 11:10 AM [facility]. he states he had the "worse cr amping of his life. He received fluids. Cramping has eased up. He states Imaging and labs were done. He has appt at [facility] 09/28/19. He will take his records from [facility] and from [facility]. e tawannadenice Encounter - Anastacio Bennett - 09/04/2019 10:14 AM PDTName of Caller: Skyler Sanchez "Amilcar" Name of Patient: LauraMoe "Amilcar" Reason for call: Patient called and stated that his IBS medication is not helping. Patient stated that he has been like this for five days now. Routing to clinical staff to advise. Provider/Nurse: Dr. Daniel / Darryn Call back number: [phone] documented in this encou nter Plan of Treatment +--------+ + + + + | Date | Type | Specialty | Care Team | Description | +--------+ + + + + | 08/21/ | Implant | Cardiology | Daljit Singletary, | Remote Device | | 2019 | Monitor | | MD [address] | Interrogation | | | | | [place], | (Primary Dx); | | | | | [place] [address] | Pacemaker; | | | | | [phone] | Sinoatrial node | | | | | | dysfunction (HCC) | | | | | | with symptomatic | | | | | | bradycardia | +--------+ + + + + | 08/21/ | Implant | Cardiology | Daljit Singletary, | Remote Device | | 2019 | Monitor | | MD [address] | Interrogation | | | | | [place], | (Primary Dx); | | | | | [place] [address] | Pacemaker; | | | | | [phone] | Sinoatrial node | | | | | | dysfunction (HCC) | | | | | | with symptomatic | | | | | | bradycardia | +--------+ + + + + | 08/21/ | Implant | Cardiology | Daljit Singletary, | Remote Device | | 2019 | Monitor | | MD [address] | Interrogation | | | | | [place], | (Primary Dx); | | | | | [place] [address] | Pacemaker; | | | | | [phone] | Sinoatrial node | | | | | | dysfunction (HCC) | | | | | | with symptomatic | | | | | | bradycardia | +--------+ + + + + | 08/21/ | Implant | Cardiology | Daljit Singletary, | Remote Device | | 2019 | Monitor | | MD [address] | Interrogation | | | | | [place], | (Primary Dx); | | | | | [place] [address] | Pacemaker; | | | | | [phone] | Sinoatrial node | | | | | | dysfunction (HCC) | | | | | | with symptomatic | | | | | | bradycardia | +--------+ + + + + | 08/21/ | Implant | Cardiology | Daljit Singletary, | Remote Device | | 2019 | Monitor | | MD [address] | Interrogation | | | | | [place], | (Primary Dx); | | | | | [place] [address] | Pacemaker; | | | | | [phone] | Sinoatrial node | | | | [...] [address] | | | | | | [place], | | | | | | [place] [address] | | | | | | [phone] | | | | | | | | +--------+ + + + + documented as of this encounter Visit Diagnoses Not on filedocumented in this encounter
--- OUTSIDE RECORDS SUMMARY | ~2020-08-06 | XMS | Encounter Summary ---
Demographics + + + | Address | [address] | | | [place] [address] | + + + | Home Phone [...] Providers + +------+ + | Care Health Data Analyst Name | Role | Phone | + +------+ + | Kirk French MD | PCP | | + +------+ + Encounter Details +--------+ + + + + | Date | Type | Department | Care Team | Description | +--------+ + + + + | 10/28/ | Hospital | [facility] | Conversion | Pain | | 2017 | Encounter | CONVERSION DEP [address] | Transaction, | | | | | [address] | Provider Unknown | | | | | [place], [place] | [phone] | | | | | [address] | | | | | | [phone] | | | +--------+ + + + [...] + + + +---------+ + + | [place]-3 Fatty | CAPS, one capsule by [...] | Monitor | | MD [address] | Interrogation | | | | | [place], | (Primary Dx); | | | | | [place] [address] | Pacemaker; | | | | | [phone] | Sinoatrial node | | | | | | dysfunction (HCC) | | | | | | with symptomatic | | | | | | bradycardia | +--------+ + + + + | 08/21/ | Implant | Cardiology | Daljit Singletary, | Remote Device | | 2019 | Monitor | | MD [address] | Interrogation | | | | | [place], | (Primary Dx); | | | | | [place] [address] | Pacemaker; | | | | | [phone] | Sinoatrial node | | | | | | dysfunction (HCC) | | | | | | with symptomatic | | | | | | bradycardia | +--------+ + + + + | 08/21/ | Implant | Cardiology | Daljit Singletary, | Remote Device | | 2019 | Monitor | | MD [address] | Interrogation | | | | | [place], | (Primary Dx); | | | | | [place] [address] | Pacemaker; | | | | | [phone] | Sinoatrial node | | | | | | dysfunction (HCC) | | | | | | with symptomatic | | | | | | bradycardia | +--------+ + + + + | 08/21/ | Implant | Cardiology | Daljit Singletary, | Remote Device | | 2019 | Monitor | | MD [address] | Interrogation | | | | | [place], | (Primary Dx); | | | | | [place] [address] | Pacemaker; | | | | | [phone] | Sinoatrial node | | | | | | dysfunction (HCC) | | | | | | with symptomatic | | | | | | bradycardia | +--------+ + + + + | 08/21/ | Implant | Cardiology | Daljit Singletary, | Remote Device | | 2019 | Monitor | | [address] | Interrogation | | | | | [place], | (Primary Dx); | | | | | [place] [address] | Pacemaker; | | | | | [phone] | Sinoatrial node | | | | [...] W | | | | | | [place], | | | | | | [place] [address] | | | | | | [phone] | | | | | | | [...]
--- OUTSIDE RECORDS SUMMARY | ~2020-08-06 | XMS | Encounter Summary ---
Demographics + + + | Address | [address] [place] [address] [address] | | | [place] [address] | + + + | Home Phone [...] [place] | | | | | [address] | | + + + + + Care Team Providers + +------+ + | Care Cost Accountant Name | Role | Phone | [...] | | 2020 | | Center at [facility] [address] | MD [address] | | | | | [address] | [place], [place] | | | | | [facility] and | [address] | | | | | [facility] | [phone] | | | | | [place], [place] | | | | | | [address] | | | | | | [phone] | | | +--------+ + + + [...] head and mailed to his address in [place]. Verified mailing address with patient. Allyson Diehl, [...]
--- OUTSIDE RECORDS SUMMARY | ~2020-08-06 | XMS | Encounter Summary ---
Demographics + + + | Address | [address] | | | [place] [address] | + + + | Home Phone [...] Providers + +------+ + | Care Winery Cellar Hand Name | Role | Phone | [...] | 08/04/ | Telephone | [facility] | Silvia, | Other (4 week event | | 2017 | | CARDIOLOGY [address] | [place] [address] | monitor ) | | | | [place], | [place], | | | | | [place] [address] | [place] [address] | | | | | [phone] | [phone] | | | | | | | [...] to appointment. Will route message to front services agent to call and reschedule appointment. ...........................................TOYIN [...] 2020 | Monitor | | MD [address] [facility] | Interrogation | | | | | [place], | (Primary Dx); | | | | | [place] [address] | Pacemaker; | | | | | [phone] | Sinoatrial node | | | | | | dysfunction (HCC) | | | | | | with symptomatic | | | | | | bradycardia | +--------+ + + + + | 08/21/ | Implant | Cardiology | Daljit Singletary, | Remote Device | | 2019 | Monitor | | MD [address] [place] | Interrogation | | | | | [place], | (Primary Dx); | | | | | [place] [address] | Pacemaker; | | | | | [phone] | Sinoatrial node | | | | | | dysfunction (HCC) | | | | | | with symptomatic | | | | | | bradycardia | +--------+ + + + + | 08/21/ | Implant | Cardiology | Daljit Singletary, | Remote Device | | 2019 | Monitor | | MD [address] [place] | Interrogation | | | | | [place], | (Primary Dx); | | | | | [place] [address] | Pacemaker; | | | | | [phone] | Sinoatrial node | | | | | | dysfunction (HCC) | | | | | | with symptomatic | | | | | | bradycardia | +--------+ + + + + | 08/21/ | Implant | Cardiology | Daljit Singletary, | Remote Device | | 2020 | Monitor | | MD [address] [place] | Interrogation | | | | | [place], | (Primary Dx); | | | | | [place] [address] | Pacemaker; | | | | | [phone] | Sinoatrial node | | | | | | dysfunction (HCC) | | | | | | with symptomatic | | | | | | bradycardia | +--------+ + + + + | 08/21/ | Implant | Cardiology | Daljit Singletary, | Remote Device | 2019 | Monitor | | [address] [place] | Interrogation | | | | | [place], | (Primary Dx); | | | | | [place] [address] | Pacemaker; | | | | | [phone] | Sinoatrial node | | | | [...] | | | | | | [place], | | | | | | [place] [address] | | | | | | [phone] | | | | | | | | +--------+ + + + + documented as of this encounter Visit Diagnoses Not on filedocumented in this encounter"
--- OUTSIDE RECORDS SUMMARY | ~2020-08-06 | XMS | Encounter Summary ---
Demographics + + + | Address | [address] | | | [place] [address] | + + + | Home Phone [...] + +------+ + | Care Managed Care Analyst Name | Role | Phone | + +------+ + PCP | Unavailable | + +------+ + Encounter Details +--------+ + + + + | Date | Type | Department | Care Team | Description | +--------+ + + + + | 11/12/ | [facility] | [facility] | | | | 1994 | Encounter | MED CTR GENERIC OP | | | | | | CONV DEPT [address] | | | | | | [place], | | | | | | [place] [address] | | | | | | [phone] | | | +--------+ + + + [...] | Monitor | | MD [address] | Interrogation | | | | | [place], | (Primary Dx); | | | | | [place] [address] | Pacemaker; | | | | | [phone] | Sinoatrial node | | | | | | dysfunction (HCC) | | | | | | with symptomatic | | | | | | bradycardia | +--------+ + + + + | 08/21/ | Implant | Cardiology | Daljit Singletary, | Remote Device | | 2019 | Monitor | | MD [address] [place] | Interrogation | | | | | [place], | (Primary Dx); | | | | | [place] [address] | Pacemaker; | | | | | [phone] | Sinoatrial node | | | | | | dysfunction (HCC) | | | | | | with symptomatic | | | | | | bradycardia | +--------+ + + + + | 08/21/ | Implant | Cardiology | Daljit Singletary, | Remote Device | | 2019 | Monitor | | MD [address] | Interrogation | | | | | [place], | (Primary Dx); | | | | | [place] [address] | Pacemaker; | | | | | [phone] | Sinoatrial node | | | | [...] Interrogation | | | | | [place], | (Primary Dx); | | | | | [place] [address] | Pacemaker; | | | | | [phone] | Sinoatrial node | | | | | | dysfunction (HCC) | | | | | | with symptomatic | | | | | | bradycardia | +--------+ + + + + | 08/21/ | Implant | Cardiology | Daljit Singletary | Remote Device | | 2019 | Monitor | | MD [address] | Interrogation | | | | | [place], | (Primary Dx); | | | | | [place] [address] | Pacemaker; | | | | | [phone] | Sinoatrial node | | | | [...] | | | | | | [place] [address] | | | | | | [phone] | | | | | | | | +--------+ + + + + documented as of this encounter Visit Diagnoses Not on filedocumented in this encounter"
--- OUTSIDE RECORDS SUMMARY | ~2020-08-06 | XMS | Encounter Summary ---
Demographics + + + | Address | [address] | | | [place] [address] | + + + | Home Phone [...] Providers + +------+ + | Care Global President Name | Role | Phone | [...] + + | 05/14/ | Office | [facility] | [place], | Coronary artery | | 2013 | Visit | CARDIOLOGY [address] | [place] [address] | disease (Primary | | | | [place], | [place], | Dx); Hypertension; | | | | [place] [address] | [place] [address] | Hyperlipidemia; | | | | [phone] | [phone] | Syncope; Other chest | | | [...] needed for Chest pain. 25 tablet 12 [place]-3 Fatty Acids (SALMON OIL-1000 PO) CAPS, [...] be ruled out. D. C 12/25/13, shows noncritical coronary artery disease, mild [...] exercising. He is in class II of [place] [employer] functional class. There are no [...] to go back in 3 days to [place] for an attempt of ablation under general [...] palpitations.. He is in class II of [place] [employer] functional class. There are no [...] his blood pressure logs from [facility] 5. Lightheadedness and dizziness/ presyncope: [...] 2 months or sooner if any concerns IJaneen ARNP, saw this patient under the direct supervision of Daljit Singletary MD Portions of this report were transcribed using voice recognition software. Every effort wa s made to ensure accuracy; however, inadvertent computerized flyer repairer errors may be pre sent. Electronically signed by: PARISA Russell 05/14/2014 7:40 documented in this encounter Procedure Notes IRINA HAWTHORNEND - 05/14/2014 12:00 AM PDTAssociated Order(s): ECG - EXTERNAL SCANRen marrero signed by Randa Melo at 05/17/2014 9:17 AM PDTdocumented in this encounter Plan of Treatment +--------+ + + + + | Date | Type | Specialty | Care Team | Description | +--------+ + + + + | 08/21/ | Implant | Cardiology | Daljit Singletary, | Remote Device | | 2019 | Monitor | | [place] [address] [facility] | Interrogation | | | | | [place], | (Primary Dx); | | | | | [place] [address] | Pacemaker; | | | | | [phone] | Sinoatrial node | | | | | | dysfunction ([facility]) | | | | | | with symptomatic | | | | | | bradycardia | +--------+ + + + + | 08/21/ | Implant | Cardiology | Daljit Singletary, | Remote Device | | 2019 | Monitor | | MD [address] [place] | Interrogation | | | | | [place], | (Primary Dx); | | | | | [place] [address] | Pacemaker; | | | | | [phone] | Sinoatrial node | | | | | | dysfunction (HCC) | | | | | | with symptomatic | | | | | | bradycardia | +--------+ + + + + | 08/21/ | Implant | Cardiology | Daljit Singletary, | Remote Device | | 2019 | Monitor | | MD [address] [place] | Interrogation | | | | | [place], | (Primary Dx); | | | | | [place] [address] | Pacemaker; | | | | | [phone] | Sinoatrial node | | | | | | dysfunction (HCC) | | | | | | with symptomatic | | | | | | bradycardia | +--------+ + + + + | 08/21/ | Implant | Cardiology | Daljit Singletary, | Remote Device | | 2020 | Monitor | | MD [address] [place] | Interrogation | | | | | [place], | (Primary Dx); | | | | | [place] [address] | Pacemaker; | | | | | [phone] | Sinoatrial node | | | | | | dysfunction (HCC) | | | | | | with symptomatic | | | | | | bradycardia | +--------+ + + + + | 08/21/ | Implant | Cardiology | Daljit Singletary, | Remote Device | 2019 | Monitor | | [address] | Interrogation | | | | | [place], | (Primary Dx); | | | | | [place] [address] | Pacemaker; | | | | | [phone] | Sinoatrial node | | | | [...] | | | | | | [place], | | | | | | [place] [address] | | | | | | [phone] | | | | | | | [...] of unspecified type of | | vessel, wiyot or graft | + + | Hypertension [...]
--- OUTSIDE RECORDS SUMMARY | ~2020-08-06 | XMS | Encounter Summary ---
Demographics + + + | Address | [address] | | | [place] [address] | + + + | Home Phone [...] Providers + +------+ + | Care Supervisor [place] Name | Role | Phone | + [...] [address] | | | | | [place], | [place], | | | | | [place] [address] | [place] [address] | | | | | [phone] | [phone] | | | | | | | [...] 2019 | Monitor | | [address] [place] | Interrogation | | | | | [place], | (Primary Dx); | | | | | [place] [address] | Pacemaker; | | | | | [phone] | Sinoatrial node | | | | | | dysfunction (HCC) | | | | | | with symptomatic | | | | | | bradycardia | +--------+ + + + + | 08/21/ | Implant | Cardiology | Daljit Singletary, | Remote Device | | 2020 | Monitor | | MD [address] [place] | Interrogation | | | | | [place], | (Primary Dx); | | | | | [place] [address] | Pacemaker; | | | | | [phone] | Sinoatrial node | | | | | | dysfunction (HCC) | | | | | | with symptomatic | | | | | | bradycardia | +--------+ + + + + | 08/21/ | Implant | Cardiology | Daljit Singletary, | Remote Device | | 2019 | Monitor | | MD [address] [place] | Interrogation | | | | | [place], | (Primary Dx); | | | | | [place] [address] | Pacemaker; | | | | | [phone] | Sinoatrial node | | | | | | dysfunction (HCC) | | | | | | with symptomatic | | | | | | bradycardia | +--------+ + + + + | 08/21/ | Implant | Cardiology | Daljit Singletary, | Remote Device | | 2019 | Monitor | | MD [address] [place] | Interrogation | | | | | [place], | (Primary Dx); | | | | | [place] [address] | Pacemaker; | | | | | [phone] | Sinoatrial node | | | | | | dysfunction (HCC) | | | | | | with symptomatic | | | | | | bradycardia | +--------+ + + + + | 08/21/ | Implant | Cardiology | Daljit Singletary, | Remote Device | | 2019 | Monitor | | MD [address] [place] | Interrogation | | | | | [place], | (Primary Dx); | | | | | [place] [address] | Pacemaker; | | | | | [phone] | Sinoatrial node | | | | [...] | | | | | | [place] [address] | | | | | | [phone] | | | | | | | [...] Comment | + + | [facility] | + + + +---------+ + + [...] Comment | + + | [facility] | + + + +---------+ + + [...]
--- OUTSIDE RECORDS SUMMARY | ~2020-08-06 | XMS | Encounter Summary ---
Demographics + + + | Address | [address] | | | [place] [address] | + + + | Home Phone [...] [place] | | | | | | [address] | | | | | | [phone] | | | +--------+ + + + [...] | Monitor | | MD [address] [place] | Interrogation | | | | | [place], | (Primary Dx); | | | | | [place] [address] | Pacemaker; | | | | | [phone] | Sinoatrial node | | | | | | dysfunction ([facility]) | | | | | | with symptomatic | | | | | | bradycardia | +--------+ + + + + | 08/21/ | Implant | Cardiology | Daljit Singletary | Remote Device | | 2020 | Monitor | | MD [address] [place] | Interrogation | | | | | [place], | (Primary Dx); | | | | | [place] [address] | Pacemaker; | | | | | [phone] | Sinoatrial node | | | | | | dysfunction (HCC) | | | | | | with symptomatic | | | | | | bradycardia | +--------+ + + + + | 08/21/ | Implant | Cardiology | Daljit Singletary, | Remote Device | | 2019 | Monitor | | MD [address] [place] | Interrogation | | | | | [place], | (Primary Dx); | | | | | [place] [address] | Pacemaker; | | | | | [phone] | Sinoatrial node | | | | | | dysfunction (HCC) | | | | | | with symptomatic | | | | | | bradycardia | +--------+ + + + + | 08/21/ | Implant | Cardiology | Daljit Singletary, | Remote Device | | 2019 | Monitor | | MD [address] [place] | Interrogation | | | | | [place], | (Primary Dx); | | | | | [place] [address] | Pacemaker; | | | | | [phone] | Sinoatrial node | | | | | | dysfunction (HCC) | | | | | | with symptomatic | | | | | | bradycardia | +--------+ + + + + | 08/21/ | Implant | Cardiology | Daljit Singletary, | Remote Device | | 2019 | Monitor | | MD [address] [place] | Interrogation | | | | | [facility], | (Primary Dx); | | | | | [place] [address] | Pacemaker; | | | | | [phone] | Sinoatrial node | | | | [...] W | | | | | | [place], | | | | | | [place] [address] | | | | | | [phone] | | | | | | | | +--------+ + + + + documented as of this encounter Visit Diagnoses Not on filedocumented in this encounter"
--- OUTSIDE RECORDS SUMMARY | ~2020-08-06 | XMS | Encounter Summary ---
Demographics + + + | Address | [address] | | | [place] [address] | + + + | Home Phone [...] Providers + +------+ + | Care Floral Associate Name | Role | Phone | + +------+ + | Kirk French MD | PCP | | + +------+ + Encounter Details +--------+---------+ + + + | Date | Type | Department | Care Team | Description | +--------+---------+ + + + | 09/26/ | Office | [facility] | Kirk French | Weight loss (Primary | | 2019 | Visit | [facility] | [place], [address] | Dx); Bipolar | | | | [facility] [address] | affective disorder, | | | | [address] | [place] [address] | remission status | | | | [place], [place] | [phone] | unspecified (HCC); | | | | [address] | | Mixed anxiety | | | | [phone] | | depressive disorder; | | | [...] wasn't treated. 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 Corby, [place]ERE[place] PACEMAKER PLACEMENT 06/14/2009 Medtronic ROTATOR CUFF REPAIR Bilateral 03/22/2013 SINUS SURGERY 1998 SPINAL FUSION STOMACH SURGERY UPPER GASTROINTESTINAL ENDOSCOPY N/A 12/24/2017 Procedure: EGD; Surgeon: Emmanuel Daniel MD; Location: [facility] MEDICAL PROCEDURE UNIT UPPER GASTROINTESTINAL ENDOSCOPY N/A 01/05/2019 Procedure: EGD; Surgeon: Emmanuel Daniel MD; Location: [facility] MEDICAL PROCEDURE UNIT URETEROSCOPY Left 04/13/2019 Procedure: Cystoscopy, Left ureteroscopy with laser lithotripsy, Left ureteral stent place ment; Surgeon: Matthew Uriarte MD; Location: [facility] MAIN OR VASECTOMY Social History Socioeconomic [...] by mouth Daily. 45 t ablet 5 [facility] Natural Products (OSTEO BI-FLEX/5-LOXIN ADVANCED PO) Take by mouth. Takes 2 table ts in the morning and 2 tablets at night Multiple Vitamins-Minerals (CENTRUM SILVER PO) Take 1 tablet by mouth Daily. nitroglycerin (NITROSTAT) 0.[address] ONE TABLET UNDER THE TONGUE EVERY 5 PR NUTES NEEDED FOR CHEST PAIN 250 tablet 0 [place]-3 Fatty Acids (SALMON OIL-1000 PO) CAPS, one capsule by mouth daily twice daily ondansetron (ZOFRAN ODT) 4 mg disintegrating tablet Take 4 mg by mouth every 8 hours as needed for Nausea. ONE TOUCH DELICA LANCETS [facility] [...] PLT 169 06/02/2019 No results found for: [id number] No results found for: FOLATE No results [...] Co multiple ER visits Going again to [facility] tomorrow Already followed by [...] dollars a month. We will defer to [facility], perhaps to have some [...] Viberzi and will otherwise defer t o [facility]. documented in th is encounter Plan of [...] Dx); | | | | | [place] [address] | Pacemaker; | | | | | [phone] | Sinoatrial node | | | | | | dysfunction (HCC) | | | | | | with symptomatic | | | | | | bradycardia | +--------+ + + + + | 08/21/ | Implant | Cardiology | Daljit Singletary, | Remote Device | | 2019 | Monitor | | MD [address] [place] | Interrogation | | | | | [place], | (Primary Dx); | | | | | [place] [address] | Pacemaker; | | | | | [phone] | Sinoatrial node | | | | | | dysfunction (HCC) | | | | | | with symptomatic | | | | | | bradycardia | +--------+ + + + + | 08/21/ | Implant | Cardiology | Daljit Singletary, | Remote Device | | 2019 | Monitor | | MD [address] [place] | Interrogation | | | | | [place], | (Primary Dx); | | | | | [place] [address] | Pacemaker; | | | | | [phone] | Sinoatrial node | | | | | | dysfunction (HCC) | | | | | | with symptomatic | | | | | | bradycardia | +--------+ + + + + | 08/21/ | Implant | Cardiology | Daljit Singletary, | Remote Device | | 2019 | Monitor | | MD [address] [place] | Interrogation | | | | | [place], | (Primary Dx); | | | | | [place] [address] | Pacemaker; | | | | | [phone] | Sinoatrial node | | | | | | dysfunction (HCC) | | | | | | with symptomatic | | | | | | bradycardia | +--------+ + + + + | 08/21/ | Implant | Cardiology | Daljit Singletary, | Remote Device | | 2019 | Monitor | | MD [address] [place] | Interrogation | | | | | [place], | (Primary Dx); | | | | | [place] [address] | Pacemaker; | | | | | [phone] | Sinoatrial node | | | | [...] | 2019 | Visit | | Janeen, COMBINE MECHANIC [address] | | | | | | [place], | | | | | | [place] [address] | | | | | | [phone] | | | | | | | [...] perforation, or obstruction | + + | Remote Device Interrogation [...]
--- OUTSIDE RECORDS SUMMARY | ~2020-08-06 | XMS | Encounter Summary ---
Demographics + + + | Address | [address] | | | [place] [address] | + + + | Home Phone [...] Providers + +------+ + | Care Business Analyst Intern Name | Role | Phone | [...] | 09/12/ | Telephone | [facility] [place] | Stanley Geri, | Other (records | | 2012 | | CARDIOLOGY [address] | NIGHT WAREHOUSE SELECTOR [address] | faxed) | | | | [place], | [place], [place] | | | | | [place] [address] | [address] | | | | | [phone] | | | +--------+ + + + [...] Dx); | | | | | [place] [address] | Pacemaker; | | | | | [phone] | Sinoatrial node | | | | | | dysfunction (HCC) | | | | | | with symptomatic | | | | | | bradycardia | +--------+ + + + + | 08/21/ | Implant | Cardiology | Daljit Singletary, | Remote Device | | 2019 | Monitor | | MD [address] | Interrogation | | | | | [place], | (Primary Dx); | | | | | [place] [address] | Pacemaker; | | | | | [phone] | Sinoatrial node | | | | | | dysfunction (HCC) | | | | | | with symptomatic | | | | | | bradycardia | +--------+ + + + + | 08/21/ | Implant | Cardiology | Daljit Singletary, | Remote Device | | 2019 | Monitor | | MD [address] | Interrogation | | | | | [place], | (Primary Dx); | | | | | [place] [address] | Pacemaker; | | | | | [phone] | Sinoatrial node | | | | | | dysfunction ([facility]) | | | | | | with symptomatic | | | | | | bradycardia | +--------+ + + + + | 08/21/ | Implant | Cardiology | Daljit Singletary, | Remote Device | | 2019 | Monitor | | MD [address] [place] | Interrogation | | | | | [place], | (Primary Dx); | | | | | [place] [address] | Pacemaker; | | | | | [phone] | Sinoatrial node | | | | | | dysfunction (HCC) | | | | | | with symptomatic | | | | | | bradycardia | +--------+ + + + + | 08/21/ | Implant | Cardiology | Daljit Singletary, | Remote Device | 2019 | Monitor | | [address] [facility] | Interrogation | | | | | [place], | (Primary Dx); | | | | | [place] [address] | Pacemaker; | | | | | [phone] | Sinoatrial node | | | | [...] | | | | | | [place] [address] | | | | | | [phone] | | | | | | | | +--------+ + + + + documented as of this encounter Visit Diagnoses Not on filedocumented in this encounter"
--- OUTSIDE RECORDS SUMMARY | ~2020-08-06 | XMS | Encounter Summary ---
Demographics + + + | Address | [address] | | | [place] [address] | + + + | Home Phone [...] Providers + +------+ + | Care Medical Chemist Name | Role | Phone | + +------+ + | Michael Amanda DO | PCP | | + +------+ + Encounter Details +--------+ + + + + | Date | Type | Department | Care Team | Description | +--------+ + + + + | 09/22/ | Hospital | [facility] | Bahman Gant MD | | | 2013 | Encounter | MED CTR XRAY [address] | [address] [place] | | | | | [place] | [address] [place], [place] | | | | | [place] [address] | [address] | | | | | [phone] | | | +--------+ + + + [...] + + + +---------+ + + | [place]-3 Fatty | CAPS, one capsule by | [...] Dx); | | | | | [place] [address] | Pacemaker; | | | | | [phone] | Sinoatrial node | | | | [...] Dx); | | | | | [place] [address] | Pacemaker; | | | | | [phone] | Sinoatrial node | | | | [...] Dx); | | | | | [place] [address] | Pacemaker; | | | | | [phone] | Sinoatrial node | | | | [...] Dx); | | | | | [place] [address] | Pacemaker; | | | | | [phone] | Sinoatrial node | | | | [...] Dx); | | | | | [place] [address] | Pacemaker; | | | | | [phone] | Sinoatrial node | | | | [...] | | | | | | [place] [address] | | | | | | [phone] | | | | | | | | +--------+ + + + + documented as of this encounter Visit Diagnoses Not on filedocumented in this encounter"
--- OUTSIDE RECORDS SUMMARY | ~2020-08-06 | XMS | Clinical Summary ---
Demographics + + + | Address | [address] [place] [address] | | | [place] [address] | + + + | Home Phone [...] [place] | | | | | [address] | | + + + + + Care Team Providers + +------+ + | Care Insulation Installer Name | Role | Phone | + +------+ + | Darion Holden DO | PCP | | + +------+ + Source Comments IVETTE is fully live on both EpicCare Ambulatory and EpicCare InPatient.[facility] Allergies + [...] + +--------+ | MEDICARE | MEDICA | [id number] | 11/22/19 | [phone] | [address] | Medica | | | RE A & | | 10-Pre | 1 | [address] | re | | | B | | sent | | [place], [place] | | | | | | | | [address] | | + +--------+ +--------+ + +--------+ | [employer]AN [employer]N | AARP | [id number] | 11/22/19 | [phone] | [address] | Indemn | | RETIRED PEOPLE | | | 10-Pre | 9 | [id number] | ity | | | | | sent | | [place] | | | | | | | | [address] | | + +--------+ +--------+ + +--------+ + +--------+ +--------+ + + | Guarantor Name | Accoun | Relation to | Date | Phone | Billing Address | | | t Type | Patient | of | | | | | | | | | | + +--------+ +--------+ + + | Moe Sanchez | Person | Self | [birth year] | [address] | | | al/Per | | 1960 | [phone] | [place] | | | roxanne | | | 8 (Home) | [address] | + +--------+ +--------+ + + Advance Directives + + + + + | Type | Date Recorded | Patient | Explanation | | | | Optimization Consultant | | + + + + + | Advance | | | | | Directives and | | | | | Living Will | | | | + + + + + | Power of | | | | | Material Lister | | | | + + + + +
--- OUTSIDE RECORDS SUMMARY | ~2020-08-06 | XMS | Encounter Summary ---
Demographics + + + | Address | [address] [place] [address] [address] | | | [place] [address] | + + + | Home Phone [...] [place] | | | | | [address] | | + + + + + Care Team Providers + +------+ + | Care Wholesale And Retail Merchant Name | Role | Phone | + [...] | Center at [address] | MD [address] [facility] | | | | | [address] | [place], [place] | | | | | for Health and | [address] | | | | | [facility] 2 | [phone] | | | | | [place], [place] | | | | | | [address] | | | | | | [phone] | | | +--------+ + + + [...] the ER for evaluation immediately. I called [facility] ER and gave them a heads up. Blanca RN very familiar with Amilcar and took report. She asked for most recent medications list to expedite the process. Medicat ion list faxed to her at [phone], attention MONROE Rios. Dr. Rios informed. Ni Pt verbalized understanding and agreement with plan. elephone Encounter - Nteta Alexander - 11/01/2019 9:09 A M PSTPATIENT [...]
--- OUTSIDE RECORDS SUMMARY | ~2020-08-06 | XMS | Encounter Summary ---
Demographics + + + | Address | [address] | | | [place] [address] | + + + | Home Phone [...] Providers + +------+ + | Care Steel Worker Name | Role | Phone | + +------+ + | Kirk French MD | PCP | | + +------+ + Reason for Visit +--------+--------+ + | Reason | Onset | Comments | | | Date | | +--------+--------+ + | Other | 08/23/ | edema is blood clots | | | 2014 | | +--------+--------+ + Encounter Details +--------+ + + + + | Date | Type | Department | Care Team | Description | +--------+ + + + + | 08/23/ | Telephone | [facility] | Daljit Singletary, | Other (edema is | | 2015 | | CARDIOLOGY [address] | blood clots) | | | | [place], | [place], | | | | | [place] [address] | [place] [id number] | | | | | [phone] | [phone] | | | | | | | [...] to the ER right now to get chewilmer kebrigida out. ...........................................Darlene Tirado RN on 08/23/15 at 16:49 documented in this encounter Plan of Treatment +--------+ + + + + | Date | Type | Specialty | Care Team | Description | +--------+ + + + + | 08/21/ | Implant | Cardiology | Daljit Singletary, | Remote Device | | 2019 | Monitor | | MD [address] [place] | Interrogation | | | | | [place], | (Primary Dx); | | | | | [place] [address] | Pacemaker; | | | | | [phone] | Sinoatrial node | | | | | | dysfunction (HCC) | | | | | | with symptomatic | | | | | | bradycardia | +--------+ + + + + | 08/21/ | Implant | Cardiology | Daljit Singletary, | Remote Device | | 2019 | Monitor | | MD [address] [place] | Interrogation | | | | | [place], | (Primary Dx); | | | | | [place] [address] | Pacemaker; | | | | | [phone] | Sinoatrial node | | | | | | dysfunction (HCC) | | | | | | with symptomatic | | | | | | bradycardia | +--------+ + + + + | 08/21/ | Implant | Cardiology | Daljit Singletary, | Remote Device | | 2019 | Monitor | | MD [address] | Interrogation | | | | | [place], | (Primary Dx); | | | | | [place] [address] | Pacemaker; | | | | | [phone] | Sinoatrial node | | | | | | dysfunction (HCC) | | | | | | with symptomatic | | | | | | bradycardia | +--------+ + + + + | 08/21/ | Implant | Cardiology | AnshuDaljit carmona, | Remote Device | | 2019 | Monitor | | MD [address] | Interrogation | | | | | [place], | (Primary Dx); | | | | | [place] [address] | Pacemaker; | | | | | [phone] | Sinoatrial node | | | | | | dysfunction (HCC) | | | | | | with symptomatic | | | | | | bradycardia | +--------+ + + + + | 08/21/ | Implant | Cardiology | Daljit Singletary, | Remote Device | | 2019 | Monitor | | MD [address] | Interrogation | | | | | [place], | (Primary Dx); | | | | | [place] [address] | Pacemaker; | | | | | [phone] | Sinoatrial node | | | | [...] | | | | | | [place] [id number] | | | | | | [phone] | | | | | | | | +--------+ + + + + documented as of this encounter Visit Diagnoses Not on filedocumented in this encounter"
--- OUTSIDE RECORDS SUMMARY | ~2020-08-06 | XMS | Encounter Summary ---
Demographics + + + | Address | [address] | | | [place] [address] | + + + | Home Phone [...] | Refill | [facility] [place] | Helstephanieberg, Geri, | Medication Refill | | 2016 | | CARDIOLOGY [address] | PREFORMING MACHINE OPERATOR [address] | | | | | [place], | [place], [place] | | | | | [place] [address] | [address] | | | | | [phone] | | | +--------+--------+ + + + [...] | | 2019 | Monitor | | [place] [address] [facility] | Interrogation | | | | | [place], | (Primary Dx); | | | | | [place] [address] | Pacemaker; | | | | | [phone] | Sinoatrial node | | | | | | dysfunction ([facility]) | | | | | | with symptomatic | | | | | | bradycardia | +--------+ + + + + | 08/21/ | Implant | Cardiology | Daljit Singletary, | Remote Device | | 2020 | Monitor | | MD [address] | Interrogation | | | | | [place], | (Primary Dx); | | | | | [place] [address] | Pacemaker; | | | | | [phone] | Sinoatrial node | | | | | | dysfunction (HCC) | | | | | | with symptomatic | | | | | | bradycardia | +--------+ + + + + | 08/21/ | Implant | Cardiology | Daljit Singletary, | Remote Device | | 2019 | Monitor | | MD [address] | Interrogation | | | | | [place], | (Primary Dx); | | | | | [place] [address] | Pacemaker; | | | | | [phone] | Sinoatrial node | | | | | | dysfunction (HCC) | | | | | | with symptomatic | | | | | | bradycardia | +--------+ + + + + | 08/21/ | Implant | Cardiology | Daljit Singletary, | Remote Device | | 2019 | Monitor | | MD [address] | Interrogation | | | | | [place], | (Primary Dx); | | | | | [place] [address] | Pacemaker; | | | | | [phone] | Sinoatrial node | | | | | | dysfunction (HCC) | | | | | | with symptomatic | | | | | | bradycardia | +--------+ + + + + | 08/21/ | Implant | Cardiology | Daljit Singletary, | Remote Device | 2019 | Monitor | | MD [address] [place] | Interrogation | | | | | [place], | (Primary Dx); | | | | | [place] [address] | Pacemaker; | | | | | [phone] | Sinoatrial node | | | | [...] W | | | | | | [place], | | | | | | [place] [address] | | | | | | [phone] | | | | | | | | +--------+ + + + + documented as of this encounter Visit Diagnoses Not on filedocumented in this encounter"
--- OUTSIDE RECORDS SUMMARY | ~2020-08-06 | XMS | Encounter Summary ---
Demographics + + + | Address | [address] | | | [place] [address] | + + + | Home Phone [...] Team Providers + +------+ + | Care Scientist Electronics Name | Role | Phone | [...] + | 07/30/ | Telephone | [facility] | Michael Amanda, | Results | | 2013 | | MEDICINE [place] | DO [address] | | | | | [address] | [place] | | | | | [place], [place] | [address] | | | | | [address] | | | | | | [phone] | | | +--------+ + + + [...] Dx); | | | | | [place] [address] | Pacemaker; | | | | | [phone] | Sinoatrial node | | | | | | dysfunction (HCC) | | | | | | with symptomatic | | | | | | bradycardia | +--------+ + + + + | 08/21/ | Implant | Cardiology | Daljit Singletary, | Remote Device | | 2019 | Monitor | | MD [address] | Interrogation | | | | | [place], | (Primary Dx); | | | | | [place] [address] | Pacemaker; | | | | | [phone] | Sinoatrial node | | | | | | dysfunction (HCC) | | | | | | with symptomatic | | | | | | bradycardia | +--------+ + + + + | 08/21/ | Implant | Cardiology | Daljit Singletary | Remote Device | | 2019 | Monitor | | MD [address] | Interrogation | | | | | [place], | (Primary Dx); | | | | | [place] [address] | Pacemaker; | | | | | [phone] | Sinoatrial node | | | | | | dysfunction (HCC) | | | | | | with symptomatic | | | | | | bradycardia | +--------+ + + + + | 08/21/ | Implant | Cardiology | Daljit Singletary, | Remote Device | | 2020 | Monitor | | MD [address] | Interrogation | | | | | [place], | (Primary Dx); | | | | | [place] [address] | Pacemaker; | | | | | [phone] | Sinoatrial node | | | | [...] Dx); | | | | | [place] [address] | Pacemaker; | | | | | [phone] | Sinoatrial node | | | | [...] W | | | | | | [place], | | | | | | [place] [address] | | | | | | [phone] | | | | | | | | +--------+ + + + + documented as of this encounter Visit Diagnoses Not on filedocumented in this encounter"
--- OUTSIDE RECORDS SUMMARY | ~2020-08-06 | XMS | Encounter Summary ---
Demographics + + + | Address | [address] | | | [place] [address] | + + + | Home Phone [...] Providers + +------+ + | Care Assembling Machine Operator Name | Role | Phone [...] Telephone | [facility] [place] | Miguel eDmarco MD | Referral | | 2013 | | NEUROSURGERY [address] | [address] | | | | | [address] | [place] [address] | | | | | [place] | [phone] | | | | | [address] | | | | | | [phone] | | | +--------+ + + + [...] 03/13/2014 10:56 AM FENG Sosa called from [facility] to let Dr. Demarco know that [...] surgeries. His last MRI was done at [facility]. Whit states the MRI is over [...] | Monitor | | MD [address] | Interrogation | | | | | [place], | (Primary Dx); | | | | | [place] [address] | Pacemaker; | | | | | [phone] | Sinoatrial node | | | | | | dysfunction (HCC) | | | | | | with symptomatic | | | | | | bradycardia | +--------+ + + + + | 08/21/ | Implant | Cardiology | Daljit Singletary, | Remote Device | | 2019 | Monitor | | MD [address] | Interrogation | | | | | [place], | (Primary Dx); | | | | | [place] [address] | Pacemaker; | | | | | [phone] | Sinoatrial node | | | | | | dysfunction (HCC) | | | | | | with symptomatic | | | | | | bradycardia | +--------+ + + + + | 08/21/ | Implant | Cardiology | Daljit Singletary, | Remote Device | | 2019 | Monitor | | MD [address] | Interrogation | | | | | [place], | (Primary Dx); | | | | | [place] [address] | Pacemaker; | | | | | [phone] | Sinoatrial node | | | | | | dysfunction (HCC) | | | | | | with symptomatic | | | | | | bradycardia | +--------+ + + + + | 08/21/ | Implant | Cardiology | Daljit Singletary, | Remote Device | | 2019 | Monitor | | MD [address] | Interrogation | | | | | [place], | (Primary Dx); | | | | | [place] [address] | Pacemaker; | | | | | [phone] | Sinoatrial node | | | | | | dysfunction (HCC) | | | | | | with symptomatic | | | | | | bradycardia | +--------+ + + + + | 08/21/ | Implant | Cardiology | Daljit Singletary, | Remote Device | | 2019 | Monitor | | MD [address] [place] | Interrogation | | | | | [place], | (Primary Dx); | | | | | [place] [address] | Pacemaker; | | | | | [phone] | Sinoatrial node | | | | [...] W | | | | | | [place], | | | | | | [place] [address] | | | | | | [phone] | | | | | | | | +--------+ + + + + documented as of this encounter Visit Diagnoses Not on filedocumented in this encounter"
--- OUTSIDE RECORDS SUMMARY | ~2020-08-06 | XMS | Encounter Summary ---
Demographics + + + | Address | [address] | | | [place] [address] | + + + | Home Phone [...] Providers + +------+ + | Care Ict Quality Assurance Engineer Name | Role | [...] | | | | stenosis | L, PROCEDURES ANALYST [address] | | | | | | Procedures | [address] | | | | | | CT | [address] | | | | | | Myelography | [place], [place] | | | | | | Cervical | [address] | | | | | | Spine | Phone: | | | | | | | [phone] | | | | | | | Fax: | | | | | | | [phone] | | +--------+--------+ + + + + [...] + + | 06/04/ | Hospital | [facility] | Sariah, | Cervical spinal | | 2016 | Encounter | MED CTR CT [address] | Marietta Mason PROCEDURES ANALYST [address] | stenosis | | | | [address] [place], | [address] | | | | | [place] [address] | [place] [address] | | | | | [phone] | [phone] | | | | | | | [...] + + + +---------+ + + | [place]-3 Fatty | CAPS, one capsule by | [...] | Monitor | | MD [address] | Interrogation | | | | | [place], | (Primary Dx); | | | | | [place] [address] | Pacemaker; | | | | | [phone] | Sinoatrial node | | | | | | dysfunction ([facility]) | | | | | | with symptomatic | | | | | | bradycardia | +--------+ + + + + | 08/21/ | Implant | Cardiology | Daljit Singletary | Remote Device | | 2019 | Monitor | | MD [address] | Interrogation | | | | | [place], | (Primary Dx); | | | | | [place] [address] | Pacemaker; | | | | | [phone] | Sinoatrial node | | | | | | dysfunction ([facility]) | | | | | | with symptomatic | | | | | | bradycardia | +--------+ + + + + | 08/21/ | Implant | Cardiology | Daljit Singletary, | Remote Device | | 2019 | Monitor | | MD [address] | Interrogation | | | | | [place], | (Primary Dx); | | | | | [place] [address] | Pacemaker; | | | | | [phone] | Sinoatrial node | | | | | | dysfunction (HCC) | | | | | | with symptomatic | | | | | | bradycardia | +--------+ + + + + | 08/21/ | Implant | Cardiology | Daljit Singletary, | Remote Device | | 2019 | Monitor | | MD [address] | Interrogation | | | | | [place], | (Primary Dx); | | | | | [place] [address] | Pacemaker; | | | | | [phone] | Sinoatrial node | | | | | | dysfunction (HCC) | | | | | | with symptomatic | | | | | | bradycardia | +--------+ + + + + | 08/21/ | Implant | Cardiology | Daljit Singletary, | Remote Device | | 2019 | Monitor | | MD [address] | Interrogation | | | | | [place], | (Primary Dx); | | | | | [place] [address] | Pacemaker; | | | | | [phone] | Sinoatrial node | | | | [...] | | | | | | [place] [address] | | | | | | [phone] | | | | | | | [...]
--- OUTSIDE RECORDS SUMMARY | ~2020-08-06 | XMS | Encounter Summary ---
Demographics + + + | Address | [address] | | | [place] [address] | + + + | Home Phone [...] + +------+ + | Care Armature [employer] Name | Role | Phone | + +------+ + | Kirk French MD | PCP | | + +------+ + Reason for Visit +--------+--------+ + | Reason | Onset | Comments | | | Date | | +--------+--------+ + | Other | 08/30/ | test results | | | 2015 | | +--------+--------+ + Encounter Details +--------+ + + + + | Date | Type | Department | Care Team | Description | +--------+ + + + + | 08/30/ | Telephone | [facility] | Silvia, | Other (test results) | | 2014 | | CARDIOLOGY [address] | PARISA [place] [address] | | | | | [place], | [place], | | | | | [place] [address] | [place] [address] | | | | | [phone] | | | | | | | [...] Interrogation | | | | | [place], | (Primary Dx); | | | | | [place] [address] | Pacemaker; | | | | | [phone] | Sinoatrial node | | | | [...] Interrogation | | | | | [place], | (Primary Dx); | | | | | [place] [address] | Pacemaker; | | | | | [phone] | Sinoatrial node | | | | | | dysfunction (HCC) | | | | | | with symptomatic | | | | | | bradycardia | +--------+ + + + + | 08/21/ | Implant | Cardiology | Daljit Singletary, | Remote Device | | 2019 | Monitor | | MD [address] [place] | Interrogation | | | | | [place], | (Primary Dx); | | | | | [place] [address] | Pacemaker; | | | | | [phone] | Sinoatrial node | | | | | | dysfunction (HCC) | | | | | | with symptomatic | | | | | | bradycardia | +--------+ + + + + | 08/21/ | Implant | Cardiology | Daljit Singletary, | Remote Device | | 2019 | Monitor | | MD [address] [place] | Interrogation | | | | | [place], | (Primary Dx); | | | | | [place] [address] | Pacemaker; | | | | | [phone] | Sinoatrial node | | | | | | dysfunction (HCC) | | | | | | with symptomatic | | | | | | bradycardia | +--------+ + + + + | 08/21/ | Implant | Cardiology | Daljit Singletary, | Remote Device | | 2019 | Monitor | | [address] [place] | Interrogation | | | | | [place], | (Primary Dx); | | | | | [place] [address] | Pacemaker; | | | | | [phone] | Sinoatrial node | | | | [...] | | | | | | [place], | | | | | | [place] [address] | | | | | | [phone] | | | | | | | | +--------+ + + + + documented as of this encounter Visit Diagnoses Not on filedocumented in this encounter"
--- OUTSIDE RECORDS SUMMARY | ~2020-08-06 | XMS | Encounter Summary ---
Demographics + + + | Address | [address] | | | [place] [address] | + + + | Home Phone [...] Team Providers + +------+ + | Care Inspecting And Testing Lead Hand Name | Role | Phone | [...] + | 09/08/ | Telephone | [facility] [place] | Geri Angel, | Other (Patient wants | | 2012 | | CARDIOLOGY [address] | INTEGRATIVE MEDICINE PHYSICIAN [address] | to be referred | | | | [place], | [place], [place] | soon) | | | | [place] [address] | [address] | | | | | [phone] | | | +--------+ + + + [...] Geri Angel ARNP - 09/08/2013 4:04 PM PDTDarlene, please have PSR refer patient to el ectrophysiology at [facility] for 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 The patient had this done in [place], but he does not want to return there as he has no place to stay locally and would prefer to do a consul tation in [place]. Can you please let patient know that we will do the referral. Thanks! ...........................................PARISA [place] on 09/08/2013 at 16:05 elephone Encounter - Darlene Tirado RN - 09/08/2013 3:21 PM FRANCYFred called today and left a message on my v ayde. He would like to be referred to [facility] for his PVC's now rather than wait for 3 months. He does not like the PVC's, they are frequent and they scare him. I will consul corie Nevarez and then call him back with instructions. [...] Dx); | | | | | [place] [address] | Pacemaker; | | | | | [phone] | Sinoatrial node | | | | | | dysfunction (HCC) | | | | | | with symptomatic | | | | | | bradycardia | +--------+ + + + + | 08/21/ | Implant | Cardiology | Daljit Singletary, | Remote Device | | 2019 | Monitor | | MD [address] [place] | Interrogation | | | | | [place], | (Primary Dx); | | | | | [place] [address] | Pacemaker; | | | | | [phone] | Sinoatrial node | | | | | | dysfunction (HCC) | | | | | | with symptomatic | | | | | | bradycardia | +--------+ + + + + | 08/21/ | Implant | Cardiology | Daljit Singletary, | Remote Device | | 2019 | Monitor | | MD [address] [place] | Interrogation | | | | | [place], | (Primary Dx); | | | | | [place] [address] | Pacemaker; | | | | | [phone] | Sinoatrial node | | | | | | dysfunction (HCC) | | | | | | with symptomatic | | | | | | bradycardia | +--------+ + + + + | 08/21/ | Implant | Cardiology | Daljit Singletary, | Remote Device | | 2019 | Monitor | | MD [address] [place] | Interrogation | | | | | [place], | (Primary Dx); | | | | | [place] [address] | Pacemaker; | | | | | [phone] | Sinoatrial node | | | | [...] Dx); | | | | | [place] [address] | Pacemaker; | | | | | [phone] | Sinoatrial node | | | | [...] [place] | | | | | | [place], | | | | | | [place] [address] | | | | | | [phone] | | | | | | | | +--------+ + + + + documented as of this encounter Visit Diagnoses Not on filedocumented in this encounter"
--- OUTSIDE RECORDS SUMMARY | ~2020-08-06 | XMS | Encounter Summary ---
Demographics + + + | Address | [address] | | | [place] [address] | + + + | Home Phone [...] Providers + +------+ + | Care Fur Examiner Name | Role | Phone | [...] + + + + + + | Pending | Specialty | Rheumatology | Diagnoses | Manolo | Juan | | Review | Services | | Chronic | Kirk Guidry, | Rheumatology | | | Required | | pain | [address] | [address] | | | | | syndrome | [address] | [address] | | | | | Neuralgia | [address] | [place], [place] | | | | | Fibromyalgia | [place], [place] | [address] | | | | | | [address] | Phone: | | | | | | Phone: | [phone] | | | | | | [phone] | Fax: | | | | | | Fax: | [phone] | | | | | | [phone] | | + + + + + + + Reason for Visit + +--------+ + | Reason | Onset | Comments | | | Date | | + +--------+ + | Referral (Follow up) | 07/22/ | Pain clinic-discharged | | | 2019 | | + +--------+ + Encounter Details +--------+ + + + + | Date | Type | Department | Care Team | Description | +--------+ + + + + | 07/22/ | Telephone | [facility] | Kirk French | Referral (Follow up) | | 2020 | | [facility] | MD Brea [address] | (Pain | | | | [facility] [address] | clinic-discharged) | | | | [address] [facility] [address] | [place] [address] | | | | | [place], [place] | [phone] | | | | | [address] | | | | | | [phone] | | | +--------+ + + + [...] Miscellaneous Notes Telephone Encounter - Geri Bear, Database Marketing Specialist - 07/24/2020 11:39 AM PDTPlease sig n orders. elepho ne Encounter - Kirk French MD - 07/24/2020 9:32 AM PDTOk to rf to rheumatology bu t I don't think he has an autoimmune process they will see him for... Iknow him well I dont consider him high suicide risk elephone Encounter - Anne Sawyer RN - 07/24/2020 8:11 AM PDTCalled pt and he reports he "absolutely" does not have any thoughts of suicidal ideation. He reports t hat he was just "talking" and states "she took it out of context, I told her I was just talk ing, now its in my chart". Pt was told that we just wanted to make sure he was safe. He jack es any suicidal ideation or plan and does not want to f/u with PCP regarding this. He was to ld that if he does have any of those thoughts would recommend he contact our clinic, 911 or crisis response, he was asked if he had crisis information and reports that he did not need it as he was not having any suicidal ideation and does not want to f/u with PCP regarding it and no longer wants to talk about this. Will route to PCP regarding referral request for rh eumatology. elephon e Encounter - Opal He - 07/23/2020 4:12 PM PDTReturned call to patient. Discussed other pain providers to redirect the referral to and he chose to see Dr. Cai. During this c onversation, patient nonchalantly mentioned in the winter, his arthritis in his hands gets b ad enough to "put a gun to the roof of my mouth. " I asked if he was currently experiencing this pain, and he said "yeah, I hurt all the time", but when I further inquired, "are you sa fe?" indicating his comment. Patient stated, "Oh yes, I'd never hurt myself. I'm a Buddhism , I wouldn't do that. I just have to hurt". He was matter of fact and I did not note any sig ns of distress in his voice. He mentioned that he is interested in a referral to rheumatology/arthritis clinic. Request ing this referral for his joints hands and overall arthritis. We ended the call on a good no te with a plan to send his pain referral to Dr. Cai and to request a rheumatology referral f rom Dr. French. I informed [facility] RNs of conversation and they did not infer that patient was in any danger a t this time. Opal He elephone Encounter - Rabia Thayerricia - 07/22/2020 4:24 PM PDT Patient is returning call to [facility]. Per patient they never called him so he called them and they refused to see him. Relationship to patient: self Please call back at [phone] Can a Detailed VM be left on this number: yes Heidi Cordero P M PDTTelephone Encounter - Opal He - 07/22/2020 3:00 PM PDTReturned call to [facility] and left message requesting a call back. Need to know if he had an office visit with Suellen . If so, a new referral will be required.Electronically signed by Opal He at 2019 3:01 PM PDTTelephone Encounter - Mary López - 07/22/2020 11:49 AM PDTFred, is c alling regarding Referral (Follow up) (Pain clinic-discharged) and would like a call back. Additional Call Details: States he tested positive for marijuanas and [facility] dis charged. He not sure if there any other pain clinic he can be referred to. If this is a symptom based call, was patient offered triage? Not Applicable If this is a symptom based call and you were unable to immediately transfer the call to a lorraine bellamy transport analyst was caller made aware that if at [...] | Monitor | | MD [address] | Interrogation | | | | | 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, | (Primary Dx); | | | | | [place] [address] | Pacemaker; | | | | | [phone] | Sinoatrial node | | | | | | dysfunction (HCC) | | | | | | with symptomatic | | | | | | bradycardia | +--------+ + + + + | 08/21/ | Implant | Cardiology | Daljit Singletary, | Remote Device | | 2019 | Monitor | | MD [address] | Interrogation | | | | | [place], | (Primary Dx); | | | | | [place] [address] | Pacemaker; | | | | | [phone] | Sinoatrial node | | | | | | dysfunction (HCC) | | | | | | with symptomatic | | | | | | bradycardia | +--------+ + + + + | 08/21/ | Implant | Cardiology | Daljit Singletary, | Remote Device | | 2019 | Monitor | | MD [address] | Interrogation | | | | | [place], | (Primary Dx); | | | | | [place] [address] | Pacemaker; | | | | | [phone] | Sinoatrial node | | | | | | dysfunction (HCC) | | | | | | with symptomatic | | | | | | bradycardia | +--------+ + + + + | 08/21/ | Implant | Cardiology | Daljit Singletary, | Remote Device | | 2019 | Monitor | | MD [address] | Interrogation | | | | | [place], | (Primary Dx); | | | | | [place] [address] | Pacemaker; | | | | | [phone] | Sinoatrial node | | | | [...] | | | | | | [place], | | | | | | [place] [address] | | | | | | [phone] | | | | | | | | +--------+ + + + + + + +--------+ + + | Name | Type | Priori | Associated Diagnoses | Order Schedule | | | | ty | | | + + +--------+ + + | Ambulatory referral | Outpatient | Routin | Chronic pain | Ordered: 07/24/2020 | | to Rheumatology | Referral | e | syndrome Neuralgia | | | | | | Fibromyalgia | | + + +--------+ + + documented as of this encounter Visit Diagnoses + + | Diagnosis | + + | Chronic pain syndrome - Primary | + + | Neuralgia Neuralgia, neuritis, and radiculitis, unspecified | + + | Fibromyalgia Mylagia and myositis, unspecified | + + | Remote Device [...]
--- OUTSIDE RECORDS SUMMARY | ~2020-08-06 | XMS | Encounter Summary ---
Demographics + + + | Address | [address] | | | [place] [address] | + + + | Home Phone [...] Providers + +------+ + | Care Occupational Psychologist Name | Role | Phone | [...] | RN | | | | | [place], | | | | | | [place] [address] | | | | | | [phone] | | | +--------+ + + + [...] | Monitor | | MD [address] | Interrogation | | | | | [place], | (Primary Dx); | | | | | [place] [address] | Pacemaker; | | | | | [phone] | Sinoatrial node | | | | | | dysfunction (HCC) | | | | | | with symptomatic | | | | | | bradycardia | +--------+ + + + + | 08/21/ | Implant | Cardiology | Daljit Singletary, | Remote Device | | 2019 | Monitor | | MD [address] [place] | Interrogation | | | | | [place], | (Primary Dx); | | | | | [place] [address] | Pacemaker; | | | | | [phone] | Sinoatrial node | | | | | | dysfunction (HCC) | | | | | | with symptomatic | | | | | | bradycardia | +--------+ + + + + | 08/21/ | Implant | Cardiology | Daljit Singletary, | Remote Device | | 2019 | Monitor | | MD [address] [place] | Interrogation | | | | | [place], | (Primary Dx); | | | | | [place] [address] | Pacemaker; | | | | | [phone] | Sinoatrial node | | | | | | dysfunction (HCC) | | | | | | with symptomatic | | | | | | bradycardia | +--------+ + + + + | 08/21/ | Implant | Cardiology | Daljit Singletary, | Remote Device | | 2019 | Monitor | | MD [address] [place] | Interrogation | | | | | [place], | (Primary Dx); | | | | | [place] [address] | Pacemaker; | | | | | [phone] | Sinoatrial node | | | | | | dysfunction (HCC) | | | | | | with symptomatic | | | | | | bradycardia | +--------+ + + + + | 08/21/ | Implant | Cardiology | Daljit Singletary, | Remote Device | | 2019 | Monitor | | MD [address] [place] | Interrogation | | | | | [place], | (Primary Dx); | | | | | [place] [address] | Pacemaker; | | | | | [phone] | Sinoatrial node | | | | [...] | | | | | | [place] [address] | | | | | | [phone] | | | | | | | | +--------+ + + + + documented as of this encounter Visit Diagnoses Not on filedocumented in this encounter"
--- OUTSIDE RECORDS SUMMARY | ~2020-08-06 | XMS | Encounter Summary ---
Demographics + + + | Address | [address] | | | [place] [address] | + + + | Home Phone [...] Team Providers + +------+ + | Care Panelboard Operator Name | Role | Phone | [...] | 05/07/ | Telephone | [facility] [place] | Silvia, | Other | | 2020 | | CARDIOLOGY [address] | [place] [address] | (pacemaker/MRI/shoul | | | | [place], | [place], | good) | | | | [place] [address] | [place] [address] | | | | | [phone] | [phone] | | | | | | | [...] was supposed to have an MRI in [place] at [facility] because his pacemaker is not currently MRI [...] of Tiffanie maddox as a contact at [place] with a number of [phone] opt 2. It was not clear if [...] Interrogation | | | | | [place], | (Primary Dx); | | | | | [place] [address] | Pacemaker; | | | | | [phone] | Sinoatrial node | | | | | | dysfunction (HCC) | | | | | | with symptomatic | | | | | | bradycardia | +--------+ + + + + | 08/21/ | Implant | Cardiology | Daljit Singletary, | Remote Device | | 2019 | Monitor | | MD [address] [place] | Interrogation | | | | | [place], | (Primary Dx); | | | | | [place] [address] | Pacemaker; | | | | | [phone] | Sinoatrial node | | | | | | dysfunction (HCC) | | | | | | with symptomatic | | | | | | bradycardia | +--------+ + + + + | 08/21/ | Implant | Cardiology | Daljit Singletary, | Remote Device | | 2019 | Monitor | | MD [address] [place] | Interrogation | | | | | [place], | (Primary Dx); | | | | | [place] [address] | Pacemaker; | | | | | [phone] | Sinoatrial node | | | | | | dysfunction (HCC) | | | | | | with symptomatic | | | | | | bradycardia | +--------+ + + + + | 08/21/ | Implant | Cardiology | Daljit Singletary, | Remote Device | | 2019 | Monitor | | MD [address] [place] | Interrogation | | | | | [place], | (Primary Dx); | | | | | [place] [address] | Pacemaker; | | | | | [phone] | Sinoatrial node | | | | | | dysfunction (HCC) | | | | | | with symptomatic | | | | | | bradycardia | +--------+ + + + + | 08/21/ | Implant | Cardiology | Daljit Singletary, | Remote Device | | 2019 | Monitor | | MD [place] | Interrogation | | | | | [place], | (Primary Dx); | | | | | [place] [address] | Pacemaker; | | | | | [phone] | Sinoatrial node | | | | [...] | | | | | [place], | | | | | | [place] [address] | | | | | | [phone] | | | | | | | | +--------+ + + + + documented as of this encounter Visit Diagnoses Not on filedocumented in this encounter"
--- OUTSIDE RECORDS SUMMARY | ~2020-08-06 | XMS | Encounter Summary ---
Demographics + + + | Address | [address] | | | [place] [address] | + + + | Home Phone [...] Team Providers + +------+ + | Care Liquefaction Plant Operator Name | Role | Phone [...] + | 10/01/ | Telephone | [facility] | Mary Bradshaw | Foot Pain | | 2014 | | CARE [address] | Guy Larkin MD | | | | | [place] | [address] | | | | | [address] | [place] | | | | | [phone] | [address] | | | | | | | [...] MA - 10/01/2014 5:08 PM [facility] pain clinic called to verify if patient had a broken foot cause he was there due to the long 3 hour wait that he had to wait here. Patient had broken toe per Dr Bradshaw and the nurse was notified of that result. docujean pierre in this encounter Plan of Treatment +--------+ [...] Dx); | | | | | [place] [address] | Pacemaker; | | | | | [phone] | Sinoatrial node | | | | | | dysfunction (HCC) | | | | | | with symptomatic | | | | | | bradycardia | +--------+ + + + + | 08/21/ | Implant | Cardiology | Daljit Singletary, | Remote Device | | 2020 | Monitor | | MD [address] | Interrogation | | | | | [place], | (Primary Dx); | | | | | [place] [address] | Pacemaker; | | | | | [phone] | Sinoatrial node | | | | | | dysfunction (HCC) | | | | | | with symptomatic | | | | | | bradycardia | +--------+ + + + + | 08/21/ | Implant | Cardiology | Daljit Singletary, | Remote Device | | 2019 | Monitor | | MD [address] | Interrogation | | | | | [place], | (Primary Dx); | | | | | [place] [address] | Pacemaker; | | | | | [phone] | Sinoatrial node | | | | | | dysfunction (HCC) | | | | | | with symptomatic | | | | | | bradycardia | +--------+ + + + + | 08/21/ | Implant | Cardiology | Daljit Singletary, | Remote Device | | 2020 | Monitor | | MD [address] | Interrogation | | | | | [place], | (Primary Dx); | | | | | [place] [address] | Pacemaker; | | | | | [phone] | Sinoatrial node | | | | [...] Dx); | | | | | [place] [address] | Pacemaker; | | | | | [phone] | Sinoatrial node | | | | [...] W | | | | | | [place], | | | | | | [place] [address] | | | | | | [phone] | | | | | | | | +--------+ + + + + documented as of this encounter Visit Diagnoses Not on filedocumented in this encounter"
--- OUTSIDE RECORDS SUMMARY | ~2020-08-06 | XMS | Encounter Summary ---
Demographics + + + | Address | [address] | | | [place] [address] | + + + | Home Phone [...] Providers + +------+ + | Care Vegetable Vendor Name | Role | Phone | + +------+ + | Michael Amanda DO | PCP | | + +------+ + Encounter Details +--------+ + + + + | Date | Type | Department | Care Team | Description | +--------+ + + + + | 11/03/ | Emergency | [facility] | Eliel Calzada, | Palpitations; | | 2014 - | | MEDICAL CENTER | MD [address] | Atypical chest pain | | | | EMERGENCY CENTER | [place], [place] | | | 11/04/ | | [address] | [address] | | | 2013 | | [place], [place] | | | | | | [address] | | | | | | [phone] | | | +--------+ + + + [...] + + + +---------+ + + | Holmes-3 Fatty | CAPS, one capsule by | [...] Notes by Blade Rizo RN at 11/04/14 46 Author: Blade Rizo RN Service: (none) Author Type: Registered Nurse Filed: 11/04/1447 Date of Service: 11/04/1446 Status: Signed Electrical Technician Instructor: Blade Rizo RN (Registered Nurse) No changes evident in pt status, pt is resting quietly waiting for test results. Blade Rizo RN 11/04/1447 onver fatemeh Transaction, Provider Unknown - 11/03/2014 11:41 PM PST ED Notes by Blade Rizo RN at 11/03/142340 Author: Blade Rizo RN Service: (none) Author Type: Registered Nurse Filed: 11/03/142340 Date of Service: 11/03/142340 Status: Signed Electrical Technician Instructor: Blade Rizo RN (Registered Nurse) Calm, resting quietly, awaiting test results. Call light in reach. Blade Rizo RN 11/03/142340 onver fatemeh Transaction, Provider Unknown - 11/03/2014 11:13 PM PST ED Notes by Blade Rizo RN at 11/03/142312 Author: Blade Rizo RN Service: (none) Author Type: Registered Nurse Filed: 11/03/142312 Date of Service: 11/03/142312 Status: Signed Electrical Technician Instructor: Blade Rizo RN (Registered Nurse) Dr. Calzada at bedside. Blade Rizo RN 11/03/142312 liel Reid MD - 11/03/2014 11:10 PM PST ED Provider Notes by Eliel Calzada DO at 11/03/142309 Author: Eliel Calzada DO Service: (none) Author Type: Physician Filed: 11/05/14811 Date of Service: 11/03/142309 Status: Signed Electrical Technician Instructor: Eliel Calzada DO (Physician) [facility] Department of Emergency Medicine 11/03/2014 History [...] history. 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 He states his technology strategist is in [place]. Pt reports he last had an angiogram [...] p rocess. 1:50 AM. Reviewed records from [facility]. Records show that the patient does [...] make sure he follows up with his technology strategist this week. Filed Vitals: 11/03/14 2305 11/03/14 [...] si gns I obtain the records from [facility]. The angiogram was performed on 12/25/2013. [...] Procedure Component Value Ref Range Date/Time Magnesium [[id number]] Collected: 11/03/142309 Order Status: Completed Updated: 11/04/147 MAGNESIUM 2.1 1.7 - 2.4 mg/dL Phosphorus [[id number]] Collected: 11/03/142309 Order Status: Completed Updated: 11/04/147 PHOSPHORUS 3.4 2.3 - 4.8 mg/dL TSH [[id number]] Collected: 11/03/142309 Order Status: Completed Updated: 11/04/147 TSH 3.20 0.45 - 5.10 uIU/mL Cardiac Panel [[id number]] (Abnormal) Collected: 11/03/142309 Order Status: Completed Updated: [...] ng/mL CK-MB Index 2.8 POC cardiac troponin [[id number]] Collected: 11/03/14 2315 Order Status: Completed Updated: [...] Documented by Eliel Calzada DO (11/04/14 01:12:44, [facility] Emergency Department, Emergency Medicine) Chest X-ray: Left anterior chest wall device with two wires, in position similar to previous radiographs, normal heart size, normal mediastinum and great vessels, no fractures or bony lesions, Normal soft tissue. Views: PA and lateral, Good technique Preliminary Interpretation by Eliel Calzada DO 2306 Atrial paced rhythm with prolonged rhythm at 84 BPM Normal UT and NENITA Normal QRS and Jackson Normal QT and QTc Normal ST/T without acute ischemic changes An EKG dated 02/28/2014 is unchanged in comparison to the EKG obtained today. Interpreted by Eliel Calzada DO. ED Diagnoses Final diagnoses Palpitations Atypical chest pain Disposition: ED Disposition Discharge Condition at discharge: Stable Follow-up Information Follow up With Details Comments Contact Info Daljit Singletary MD Schedule an appointment as soon as possible for a visit For further e valuation [address] [facility] [address] [facility] Emergency Department If symptoms worsen [address] [facility] [address] PARISA Russell [address] [facility] [address] Michael Amanda DO Discharge Medications: Discharge Medication [...] | Monitor | | MD [address] | Interrogation | | | | | [place], | (Primary Dx); | | | | | [place] [address] | Pacemaker; | | | | | [phone] | Sinoatrial node | | | | | | dysfunction (HCC) | | | | | | with symptomatic | | | | | | bradycardia | +--------+ + + + + | 08/21/ | Implant | Cardiology | Daljit Singletary, | Remote Device | | 2019 | Monitor | | MD [address] | Interrogation | | | | | [place], | (Primary Dx); | | | | | [place] [address] | Pacemaker; | | | | | [phone] | Sinoatrial node | | | | | | dysfunction (HCC) | | | | | | with symptomatic | | | | | | bradycardia | +--------+ + + + + | 08/21/ | Implant | Cardiology | Daljit Singletary, | Remote Device | | 2020 | Monitor | | MD [address] | Interrogation | | | | | [place], | (Primary Dx); | | | | | [place] [address] | Pacemaker; | | | | | [phone] | Sinoatrial node | | | | | | dysfunction (HCC) | | | | | | with symptomatic | | | | | | bradycardia | +--------+ + + + + | 08/21/ | Implant | Cardiology | Daljit Singletary, | Remote Device | | 2019 | Monitor | | MD [address] | Interrogation | | | | | [place], | (Primary Dx); | | | | | [place] [address] | Pacemaker; | | | | | [phone] | Sinoatrial node | | | | | | dysfunction (HCC) | | | | | | with symptomatic | | | | | | bradycardia | +--------+ + + + + | 08/21/ | Implant | Cardiology | Daljit Singletary, | Remote Device | | 2019 | Monitor | | MD [address] | Interrogation | | | | | [place], | (Primary Dx); | | | | | [place] [address] | Pacemaker; | | | | | [phone] | Sinoatrial node | | | | [...] | | | | | | [place], | | | | | | [place] [address] | | | | | | [phone] | | | | | | | [...] CHEST 2 VIEW FRONTAL | | AND PRFPCPA1811/03/2014 11:56 PM History: 54 years. Male. Acute [...] | | | performed at [facility] | | LAB | | | | [address];[place] | | | | | | [address] | | | | + + + + + -+ | Non- | 4.97Comment: Testing | 4.20 - 5.70 | EXTERNAL | | | Red Blood | performed at [facility] | M/uL | LAB | | | Cells | [address];[place] | | | | | Counted | [address] | | | | + + + + + -+ | Hemoglobin | 16.8Comment: Testing | 13.2 - 17.0 | EXTERNAL | | | | performed at [facility];[address] | g/dL | LAB | | | | [address];[place] | | | | | | [address] | | | | + + + + + -+ | Hematocrit, | 48.2Comment: Testing | 39.0 - 50.0 % | EXTERNAL | | | POC | performed at [facility];[address] | | LAB | | | | [address];[place] | | | | | | [address] | | | | + + + + + -+ | MCV | 97.1Comment: Testing | 80.0 - 100.0 fl | EXTERNAL | | | | performed at [facility];[address] | | LAB | | | | [address];[place] | | | | | | [address] | | | | + + + + + -+ | MCH | 33.9Comment: Testing | 27.0 - 34.0 pg | EXTERNAL | | | | performed at [facility];[address] | | LAB | | | | [address];[place] | | | | | | [address] | | | | + + + + + -+ | MCHC | 34.9Comment: Testing | 32.0 - 35.5 | EXTERNAL | | | | performed at [facility];[address] | g/dL | LAB | | | | [address];[place] | | | | | | [address] | | | | + + + + + -+ | RDW-CV | 42.4Comment: Testing | 37 - 53 fl | EXTERNAL | | | | performed at [facility];[address] | | LAB | | | | [address] | | | | | | [address] | | | | + + + + + -+ | Platelet | 143 (L)Comment: Testing | 150 - 400 K/uL | EXTERNAL | | | Count | performed at [facility];[address] | | LAB | | | Plasma | [address];[place] | | | | | | [address] | | | | + + + + + -+ | MPV | 9.0Comment: Testing | fl | EXTERNAL | | | | performed at [facility];[address] | | LAB | | | | [address];[place] | | | | | | [address] | | | | + + + + + -+ | Differentia | AUTOMATEDComment: | | EXTERNAL | | | l Type | Testing performed at | | LAB | | | | [facility];[address];[place] [address] | | | | + + + + + -+ | % Segmented | 61.6Comment: Testing | % | EXTERNAL | | | | performed at [facility];[address] | | LAB | | | Neutrophils | [address];[place] | | | | | | [address] | | | | + + + + + -+ | % | 27.8Comment: Testing | % | EXTERNAL | | | Lymphocytes | performed at [facility];[address] | | LAB | | | | [address] | | | | | | [address] | | | | + + + + + -+ | % Monocytes | 8.7Comment: Testing | % | EXTERNAL | | | | performed at [facility];[address] | | LAB | | | | [address] | | | | | | [address] | | | | + + + + + -+ | % | 0.8Comment: Testing | % | EXTERNAL | | | Eosinophils | performed at [facility];[address] | | LAB | | | | [address];[place] | | | | | | [address] | | | | + + + + + -+ | % Basophils | 1.1Comment: Testing | % | EXTERNAL | | | | performed at [facility];[address] | | LAB | | | | [address];[place] | | | | | | [address] | | | | + + + + + -+ | Absolute | 5.4Comment: Testing | 1.9 - 7.4 K/uL | EXTERNAL | | | Segmented | performed at [facility];[address] | | LAB | | | Neutrophils | [address];[place] | | | | | | [address] | | | | + + + + + -+ | Absolute | 2.4Comment: Testing | 1.0 - 3.9 K/uL | EXTERNAL | | | Lymphocytes | performed at [facility];[address] | | LAB | | | | [address];[place] | | | | | | [address] | | | | + + + + + -+ | Absolute | 0.8Comment: Testing | 0 - 0.8 K/uL | EXTERNAL | | | Monocytes | performed at [facility];[address] | | LAB | | | | [address];[place] | | | | | | [address] | | | | + + + + + -+ | Absolute | 0.1Comment: Testing | 0 - 0.5 K/uL | EXTERNAL | | | Eosinophils | performed at [facility];[address] | | LAB | | | | [address] | | | | | | [address] | | | | + + + + + -+ | Absolute | 0.1Comment: Testing | 0 - 0.1 K/uL | EXTERNAL | | | Basophils | performed at [facility];[address] | | LAB | | | | [address] | | | | | | [address] | | | | + + + + + -+ | RBC | SLIDE SCANNED, AGREES | | EXTERNAL | | | Morphology | WITH AUTOMATED | | LAB | | | | RESULTS.Comment: Testing | | | | | | performed at [facility];[address] | | | | | | [address];[place] | | | | | | [address] | | | | + + + + + -+ | Na | 140Comment: Testing | 135 - 143 | EXTERNAL | | | | performed at [facility];[address] | mmol/L | LAB | | | | [address];[place] | | | | | | [address] | | | | + + + + + -+ | K | 3.9Comment: Testing | 3.5 - 4.9 | EXTERNAL | | | | performed at [facility];[address] | mmol/L | LAB | | | | [address] | | | | | | [address] | | | | + + + + + -+ | Cl | 107Comment: Testing | 99 - 109 mmol/L | EXTERNAL | | | | performed at [facility];[address] | | LAB | | | | [address] | | | | | | [address] | | | | + + + + + -+ | CO2 | 28Comment: Testing | 23 - 32 mmol/L | EXTERNAL | | | | performed at [facility];[address] | | LAB | | | | [address] | | | | | | [address] | | | | + + + + + -+ | Anion Gap | 9Comment: Testing | 5 - 20 mmol/L | EXTERNAL | | | | performed at [facility];[address] | | LAB | | | | [address] | | | | | | [address] | | | | + + + + + -+ | Glucose, | 97Comment: Testing | 65 - 99 mg/dL | EXTERNAL | | | Fasting | performed at [facility];[address] | | LAB | | | | [address] | | | | | | [address] | | | | + + + + + -+ | BUN | 14Comment: Testing | 8 - 25 mg/dL | EXTERNAL | | | | performed at [facility];[address] | | LAB | | | | [address] | | | | | | [address] | | | | + + + + + -+ | Creatinine | 0.98Comment: Testing | 0.70 - 1.30 | EXTERNAL | | | | performed at [facility];[address] | mg/dL | LAB | | | | [address];[place] | | | | | | [address] | | | | + + + + + -+ | BUN/Creatin | 14Comment: Testing | | EXTERNAL | | | ine Ratio | performed at [facility];[address] | | LAB | | | | [address];[place] | | | | | | [address] | | | | + + + + + -+ | Calcium | 8.8Comment: Testing | 8.5 - 10.2 | EXTERNAL | | | | performed at [facility];[address] | mg/dL | LAB | | | | [address];[place] | | | | | | [address] | | | | + + + + + -+ | Protein, | 6.9Comment: Testing | 6.3 - 8.2 g/dL | EXTERNAL | | | Total | performed at [facility];[address] | | LAB | | | | [address] | | | | | | [address] | | | | + + + + + -+ | Albumin | 3.7Comment: Testing | 3.6 - 5.0 g/dL | EXTERNAL | | | | performed at [facility];[address] | | LAB | | | | [address] | | | | | | [address] | | | | + + + + + -+ | Globulin | 3.2Comment: Testing | 1.3 - 4.9 g/dL | EXTERNAL | | | | performed at [facility];[address] | | LAB | | | | [address] | | | | | | [address] | | | | + + + + + -+ | A/G Ratio | 1.2Comment: Testing | 1.0 - 2.4 | EXTERNAL | | | | performed at [facility];[address] | | LAB | | | | [address] | | | | | | [address] | | | | + + + + + -+ | Bilirubin | 0.9Comment: Testing | 0.1 - 1.5 mg/dL | EXTERNAL | | | Total | performed at [facility];[address] | | LAB | | | | [address] | | | | | | [address] | | | | + + + + + -+ | ALP, | 60Comment: Testing | 35 - 115 U/L | EXTERNAL | | | External | performed at [facility];[address] | | LAB | | | | [address] | | | | | | [address] | | | | + + + + + -+ | AST | 22Comment: Testing | 10 - 45 U/L | EXTERNAL | | | | performed at [facility];[address] | | LAB | | | | [address] | | | | | | [address] | | | | + + + + + -+ | ALT | 37Comment: Testing | 10 - 65 U/L | EXTERNAL | | | | performed at [facility];[address] | | LAB | | | | [address] | | | | | | [address] | | | | + + + [...] | | | | at [facility];[address] | | | | | | [address];[place] [address] | | | | + + + + + -+ | CK, Total | 103Comment: Testing | 55 - 400 U/L | EXTERNAL | | | | performed at [facility];[address] | | LAB | | | | [address];[place] | | | | | | [address] | | | | + + + [...] | | | performed at [facility];[address] | | | | | | [address];[place] | | | | | | [address] | | | | + + + + + -+ | aPTT, | 26Comment: Testing | 23 - 32 seconds | EXTERNAL | | | Patient | performed at [facility];[address] | | LAB | | | | [address];[place] | | | | | | [address] | | | | + + + + + -+ | CK-MB | 2.9Comment: Testing | 0.5 - 3.6 ng/mL | EXTERNAL | | | | performed at [facility];[address] | | LAB | | | | [address] | | | | | | [address] | | | | + + + [...] | | | performed at [facility];[address] | uIU/mL | LAB | | | | [address];[place] | | | | | | [address] | | | | + + + [...] | | | performed at [facility];[address] | | LAB | | | | [facility], [place] | | | | | | [address] | | | | + + + [...] | | | performed at [facility];[address] | | LAB | | | | [address];[place] | | | | | | [address] | | | | + + + [...] | | | | | ONLY, -COMPUTER (001), | | | | | | editor department Michelle Butcher | | | | | | (29) on 11/04/2014 | | | | | | 6:28:13 AM | | | | + + + + + + + + | Specimen | + + | | + + + + + | Narrative | Performed At | + + + | Historically converted procedure from [facility] Epic environment | EXTERNAL LAB | [...] pain Other chest pain | + + | [...]
--- OUTSIDE RECORDS SUMMARY | ~2020-08-06 | XMS | Encounter Summary ---
Demographics + + + | Address | [address] | | | [place] [address] | + + + | Home Phone [...] Providers + +------+ + | Care Brake Mechanic Name | Role | Phone | + +------+ + | Michael Amanda DO | PCP | | + +------+ + Encounter Details +--------+ + + + + | Date | Type | Department | Care Team | Description | +--------+ + + + + | 04/03/ | Hospital | [facility] | Jay Gambino MD | | | 2012 - | Encounter | [facility] | [address] | | | | | CARDIAC TRANSPLANT | [address] [place], | | | 04/04/ | | [address] | [place] [address] | | | 2012 | | [place] | [phone] | | | | | [address] | | | | | | [phone] | | | +--------+ + + + [...] 1960 ADMISSION DATE: 04/03/2013 DISCHARGE DATE: 04/04/2013 [id number] / [id number] ADMISSION DIAGNOSES: 1. Symptomatic premature ventricular contractions [...] and ablati on. MOE GAY Jaimee ADM:04/03/13 [id number] 04/04/13 [place] DISCHARGE SUMMARY Z640-01 [id number] [facility] PARISA Hughes [facility] MD Meena Pleitez THIS REPORT IS CONFIDENTIAL AND NOT TO BE RELEASED WITHOUT PROPER AUTHORIZATION. [facility] Mr. Gay was taken to the [...] 180 mg once daily. MOE GAY ADM:04/03/13 [id number] 04/04/13 [place] DISCHARGE SUMMARY Z640-01 [id number] [facility] PARISA Hughes [facility] MD Meena Pleitez THIS REPORT IS CONFIDENTIAL AND NOT TO BE RELEASED WITHOUT PROPER AUTHORIZATION. [facility] 5. Docusate sodium 2 tablets once daily. 6. Marinol 10 mg twice daily. 7. Metoprolol succinate 200 mg once daily. 8. Oxycodone 10 mg 10 mg oral as needed. 9. Oxycodone 30 mg oral twice daily. 10. Pravastatin 40 mg at bedtime. 11. Promethazine 25 mg as needed. 12. Ranitidine 1 to 2 tablets once daily. 13. Darien oil 2 tablets twice daily. 14. Valacyclovir 500 mg once daily. There were no new medications or medication dosage changes at time of discharge. PLAN: 1. Mr. Gay will be discharged home on medications as noted above, including his usual m edications of diltiazem and metoprolol. 2. He will be seen and followed by Dr. Gambino on 16 at 9:00 a.m. at [facility], [address]. 3. He will contact our office earlier than scheduled appointment should he have any diffic ulty prior to that time. PARISA Hughes MD A P RICHIE/med #[id number] cc: MD Dona Pleitez ARNP Suwong Wongsuwan, MD Electronically Signed 04/12/13 1400 PARISA Hughes Electronically Signed 05/22/13 1245 Jay Gambino MD NATAMOE ESTEVEZ ADM:04/03/13 [id number] 04/04/13 [place] DISCHARGE SUMMARY Z640-01 [id number] [facility] PARISA Hughes [facility] MD Meena Pleitez THIS REPORT IS CONFIDENTIAL AND NOT TO BE RELEASED WITHOUT PROPER AUTHORIZATION.Electronica lly signed by Jael Brown at 05/22/2013 1:25 PM Dona Grossman ARNP - 04/04/2013 9:05 AM PDT PATIENT NAME: MOE GAY Sex/Age: M / 53Y : 1960 ADMISSION DATE: 04/03/2013 DISCHARGE DATE: 04/04/2013 [id number] / [id number] ADMISSION DIAGNOSES: 1. Symptomatic premature ventricular contractions [...] study and ablati on. MOE GAY ADM:04/03/13 [id number] 04/04/13 [place] DISCHARGE SUMMARY [id number] [id number] [facility] PARISA Hughes [facility] MD Meena Pleitez THIS REPORT IS CONFIDENTIAL AND NOT TO BE RELEASED WITHOUT PROPER AUTHORIZATION. [facility] Mr. Gay was taken to the [...] 180 mg once daily. MOE GAY ADM:04/03/13 [id number] 04/04/13 [place] DISCHARGE SUMMARY Z640-01 [id number] [facility] PARISA Hughes [facility] Jay Gambino MD R THIS REPORT IS CONFIDENTIAL AND NOT TO BE RELEASED WITHOUT PROPER AUTHORIZATION. [facility] 5. Docusate sodium 2 tablets once daily. 6. Marinol 10 mg twice daily. 7. Metoprolol succinate 200 mg once daily. 8. Oxycodone 10 mg 10 mg oral as needed. 9. Oxycodone 30 mg oral twice daily. 10. Pravastatin 40 mg at bedtime. 11. Promethazine 25 mg as needed. 12. Ranitidine 1 to 2 tablets once daily. 13. Darien oil 2 tablets twice daily. 14. Valacyclovir 500 mg once daily. There were no new medications or medication dosage changes at time of discharge. PLAN: 1. Mr. Gay will be discharged home on medications as noted above, including his usual m edications of diltiazem and metoprolol. 2. He will be seen and followed by Dr. Gambion on 16 at 9:00 a.m. at [facility], [address]. 3. He will contact our office earlier than scheduled appointment should he have any diffic ulty prior to that time. PARISA Hughes MD A P RICHIE/med #[id number] cc: MD Dona Pleitez ARNP Suwong Wongsuwan, MD Electronically Signed 04/12/13 1400 PARISA Hughes MOE GAY ADM:04/03/13 [id number] 04/04/13 [place] DISCHARGE SUMMARY Z640-01 [id number] [facility] PARISA Hughes [facility] MD Meena Pleitez THIS REPORT IS [...] + + + +---------+ + + | Slidell-3 Fatty | CAPS, one capsule by | [...] + documented as of this encounter Procedure Jay Nunes MD - 04/03/2013 10:00 AM PDT PATIENT NAME: MOE GAY Sex/Age: M / 53Y : 1960 BUSINESS SUPPORT ASSISTANT: Jay Gambino MD DATE: 04/03/2013 PROCEDURE: 1. [...] via the right femoral vein with 8 Syriac, 7 Syriac, and 6 Syriac sheaths. Prior to the procedure, t he [...] was in sinus rhyt hm with a [place] interval of 154, QRS 107, QT 422, [...] a small T wave in aVL. A HOD MOE KIRAN ADM:04/03/13 [id number] 04/04/13 [place] CARDIAC PROCEDURE REPORT Z640-01 [id number] [facility] Jay Gambino MD E-Sign: [facility] THIS REPORT IS CONFIDENTIAL AND NOT TO BE RELEASED WITHOUT PROPER AUTHORIZATION. [facility] ThermaCool 2.5 mm irrigated F-curved catheter was then advanced into the right ventricular outflow tract and 3-D mapping was performed using the [employer] navigation system. With mapping earliest activation was [...] four hours. Jay Gambino MD A P MARVIN/iftikhar #[id number] cc: Jay Gambino MD Electronically Signed 05/22/13 0745 Jay Gambino MD MONA GAYICK Jaimee ADM:04/03/13 [id number] 04/04/13 [place] CARDIAC PROCEDURE REPORT Z640-01 [id number] [facility] Jay Gambino MD E-Sign: [facility] THIS REPORT [...] | Monitor | | MD [address] | Interrogation | | | | | [place], | (Primary Dx); | | | | | [place] [address] | Pacemaker; | | | | | [phone] | Sinoatrial node | | | | | | dysfunction (HCC) | | | | | | with symptomatic | | | | | | bradycardia | +--------+ + + + + | 08/21/ | Implant | Cardiology | Daljit Singletary, | Remote Device | | 2019 | Monitor | | MD [address] | Interrogation | | | | | [place], | (Primary Dx); | | | | | [place] [address] | Pacemaker; | | | | | [phone] | Sinoatrial node | | | | | | dysfunction (HCC) | | | | | | with symptomatic | | | | | | bradycardia | +--------+ + + + + | 08/21/ | Implant | Cardiology | Daljit Singletary, | Remote Device | | 2019 | Monitor | | MD [address] | Interrogation | | | | | [place], | (Primary Dx); | | | | | [place] [address] | Pacemaker; | | | | | [phone] | Sinoatrial node | | | | | | dysfunction (HCC) | | | | | | with symptomatic | | | | | | bradycardia | +--------+ + + + + | 08/21/ | Implant | Cardiology | Daljit Singletary, | Remote Device | | 2019 | Monitor | | MD [address] | Interrogation | | | | | [place], | (Primary Dx); | | | | | [place] [address] | Pacemaker; | | | | | [phone] | Sinoatrial node | | | | | | dysfunction (HCC) | | | | | | with symptomatic | | | | | | bradycardia | +--------+ + + + + | 08/21/ | Implant | Cardiology | Daljit Singletary, | Remote Device | | 2019 | Monitor | | MD [address] | Interrogation | | | | | [place], | (Primary Dx); | | | | | [place] [address] | Pacemaker; | | | | | [phone] | Sinoatrial node | | | | [...] W | | | | | | [place], | | | | | | [place] [address] | | | | | | [phone] | | | | | | | [...] + + + | Glucose | 94Comment: Lithuanian | 65 - 99 mg/dL | [facility] [...] + + | [facility] | [address] | [place] [address] | | | [facility] | | | | | [...] + + | [facility] | [address] [place]. | [place] [address] | | | [facility] | | | | | LABORATORY | | | | + + + + + documented in this encounter Visit Diagnoses Not on filedocumented in this encounter
--- OUTSIDE RECORDS SUMMARY | ~2020-08-06 | XMS | Encounter Summary ---
Demographics + + + | Address | [address] | | | [place] [address] | + + + | Home Phone [...] Providers + +------+ + | Care Home Worker Name | Role | Phone | [...] + | 04/24/ | Telephone | [facility] | Geri Angel, | Appointment | | 2014 | | CARDIOLOGY [address] | ACTIVE DIRECTORY SYSTEMS ADMINISTRATOR [address] | | | | | [place], | [place], [place] | | | | | [place] [address] | [address] | | | | | [phone] | | | +--------+ + + + [...] to call back to rescheduleElectronically signed by Nreeida Lambert at 015 4:04 PM PDTTelephone Encounter [...] n 06-12-15@800w/kailey and @830w/gaby. Patient is from [place]. Therefore he might prefer one in the afternoon elephone Encounter - Nereida Patterson ra - 05/10/2015 2:54 PM PDTCalled patient to re-schedule his appointment to add a d evice check with Kailey. I found one on 06-12-15@800w/kailey and @830w/gaby. Patient is from [place]. Therefore he might prefer one in the [...] need a device check? elephone Encounter - LambertNereida otto Brea - 05/06/2015 4:50 PM PDTLeft voicemail mes jose for patient to call back to scheduleElectronically signed by Nereida Lambert at 5 4:51 PM PDTTelephone Encounter - Nereida Lambert - 05/03/2015 3:51 PM PDTCalled patient t o reschedule. No answering machine was set up, unable to leave a voicemail messageElectronic ally signed by Nereida Lambert at 05/03/2015 3:51 PM PDTTelephone Encounter - LambertArnolvarsha Guidry - 04/24/2015 10:22 AM PDTPatient was a [...] Dx); | | | | | [place] [address] | Pacemaker; | | | | | [phone] | Sinoatrial node | | | | | | dysfunction (HCC) | | | | | | with symptomatic | | | | | | bradycardia | +--------+ + + + + | 08/21/ | Implant | Cardiology | Daljit Singletary, | Remote Device | | 2020 | Monitor | | MD [address] | Interrogation | | | | | [place], | (Primary Dx); | | | | | [place] [address] | Pacemaker; | | | | | [phone] | Sinoatrial node | | | | | | dysfunction ([facility]) | | | | | | with symptomatic | | | | | | bradycardia | +--------+ + + + + | 08/21/ | Implant | Cardiology | Daljit Singletary, | Remote Device | | 2020 | Monitor | | MD [address] | Interrogation | | | | | [place], | (Primary Dx); | | | | | [place] [address] | Pacemaker; | | | | | [phone] | Sinoatrial node | | | | | | dysfunction (HCC) | | | | | | with symptomatic | | | | | | bradycardia | +--------+ + + + + | 08/21/ | Implant | Cardiology | Daljit Singletary, | Remote Device | | 2019 | Monitor | | MD [address] | Interrogation | | | | | [place], | (Primary Dx); | | | | | [place] [address] | Pacemaker; | | | | | [phone] | Sinoatrial node | | | | | | dysfunction (HCC) | | | | | | with symptomatic | | | | | | bradycardia | +--------+ + + + + | 08/21/ | Implant | Cardiology | Daljit Singletary, | Remote Device | | 2019 | Monitor | | MD [address] | Interrogation | | | | | [place], | (Primary Dx); | | | | | [place] [address] | Pacemaker; | | | | | [phone] | Sinoatrial node | | | | [...] | | | | | | [place] [address] | | | | | | [phone] | | | | | | | | +--------+ + + + + documented as of this encounter Visit Diagnoses Not on filedocumented in this encounter
--- OUTSIDE RECORDS SUMMARY | ~2020-08-06 | XMS | Encounter Summary ---
Demographics + + + | Address | [address] | | | [place] [address] | + + + | Home Phone [...] Providers + +------+ + | Care Sanitation Worker Cleaning Equipment Name | Role | Phone | [...] | MD [address] | [address] | | | | | hypertension | [address] | [place], | | | | | Sick sinus | [address] | [place] | | | | | syndrome | [place], [place] | [address] | | | | | (HCC) | [address] | Phone: | | | | | Ventricular | Phone: | [phone] | | | | | premature | [phone] | Fax: | | | | | depolarizati | Fax: | [phone] | | | | | on | [phone] | | | | | | Tachycardia, | | | | | | | unspecified | | | | | | | | | | | | | | Atherosclero | | | | | | | tic heart | | | | | | | disease of | | | | | | | chinik | | | | | | | [...] + + | 07/16/ | Procedure | [facility] [place] | Daljit Singletary, | Pacemaker | | 2020 | visit | CARDIOLOGY [address] | [address] [facility] | reprogramming/check | | | | [address] [place], | [place], | DO NOT DELETE | | | | [place] [address] | [place] [address] | (Primary Dx); | | | | [phone] | [phone] | Sinoatrial node | | | | [...] encounter Procedure Notes Daljit Singletary MD - 07/16/2020 1:00 PM PDTAssociated Order(s): DEVICE INTERROGATIONPro cedure(s): DEVICE INTERROGATIONPre-Procedure Diagnose(s): Sinoatrial node dysfunction (HCC); Pacemaker reprogramming/check; Pacemaker PATIENT NAME: Moe Sanchez : 1960: AGE: [...] by Daljit Singletary MD Underlying rhythm: Sinus rhythm 67-68 beats. 2 mode switch episodes accounting for <0.1% of the time. No episodes. PVC singles 181 PVC singles 71/month PVC runs 1 PVC runs <1/month Histogram good. Battery longevity <1 month. Nearing LINDA, otherwise normal and stable device function. Weekly remote monitoring. Device interrogation due in office when device reaches replacement interval. documented in this encounter Plan of Treatment +--------+ + + + + | Date | Type | Specialty | Care Team | Description | +--------+ + + + + | 08/21/ | Implant | Cardiology | Daljit Singletary, | Remote Device | | 2019 | Monitor | | [address] | Interrogation | | | | | [place], | (Primary Dx); | | | | | [place] [address] | Pacemaker; | | | | | [phone] | Sinoatrial node | | | | | | dysfunction (HCC) | | | | | | with symptomatic | | | | | | bradycardia | +--------+ + + + + | 08/21/ | Implant | Cardiology | Daljit Singletary, | Remote Device | | 2019 | Monitor | | [address] | Interrogation | | | | | [place], | (Primary Dx); | | | | | [place] [address] | Pacemaker; | | | | | [phone] | Sinoatrial node | | | | | | dysfunction (HCC) | | | | | | with symptomatic | | | | | | bradycardia | +--------+ + + + + | 08/21/ | Implant | Cardiology | WongsuDaljit parkinson, | Remote Device | | 2019 | Monitor | | MD [address] | Interrogation | | | | | [place], | (Primary Dx); | | | | | [place] [address] | Pacemaker; | | | | | [phone] | Sinoatrial node | | | | | | dysfunction (HCC) | | | | | | with symptomatic | | | | | | bradycardia | +--------+ + + + + | 08/21/ | Implant | Cardiology | Daljit Singletary, | Remote Device | | 2019 | Monitor | | MD [address] | Interrogation | | | | | [place], | (Primary Dx); | | | | | [place] [address] | Pacemaker; | | | | | [phone] | Sinoatrial node | | | | | | dysfunction (HCC) | | | | | | with symptomatic | | | | | | bradycardia | +--------+ + + + + | 08/21/ | Implant | Cardiology | Daljit Singletary, | Remote Device | | 2020 | Monitor | | MD [address] | Interrogation | | | | | [place], | (Primary Dx); | | | | | [place] [address] | Pacemaker; | | | | | [phone] | Sinoatrial node | | | | [...] W | | | | | | [address], | | | | | | [place] [address] | | | | | | [phone] | | | | | | | [...] documented in this encounter Results Device Interrogation (07/16/2020 12:00 AM PDT) + + + | Narrative | Performed At | + + + | Daljit | [facility] | | MD [facility] 07/16/2020 2:47 PM [...] | downloading device data was supervised by Daljit Singletary MD | | | Underlying rhythm: [...] + + | Daljit Singletary MD - 07/16/2020 1:00 PM PDT PATIENT NAME: Moe Bradley | | Laura : 1960: AGE: 60 y.o.Pacemaker Evaluation ReportAugust , | | 2019Reason for evaluation: symptomsIndication for pacemaker: Sinoatrial node dysfunction | | ([facility]) (I49.5, 427.81); Pacemaker (Z95.0, V45.01); Pacemaker reprogramming/check [...] device data was | | supervised by Daljit Singletary MDUnderlying rhythm: Sinus rhythm 67-68 beats. [...] | | dysfunction | + + | Pacemaker, Dual Chamber, Medtronic 06/14/2009 Cardiac pacemaker in situ | + [...]
--- OUTSIDE RECORDS SUMMARY | ~2020-08-06 | XMS | Encounter Summary ---
Demographics + + + | Address | [address] | | | [place] [address] | + + + | Home Phone [...] + +------+ + | Care Doctor Of Optometry Name | Role | Phone | + [...] | Palpitations | [address] [place] | | | | | Procedures | [address] [place] [address] | [address] [place] | | | | | ECHO | [place], | [place] | | | | | Complete | [place] [address] | [address] | | | | | | Phone: | Phone: | | | | | | [phone] | [phone] | | | | | | Fax: | Fax: | | | | | | [phone] | [phone] | +--------+--------+ + + + + Reason [...] + + | 12/21/ | Office | [facility] | Daljit Singletary, | Palpitations | | 2012 | Visit | CARDIOLOGY [address] | [address] [place] | (Primary Dx); PVC | | | | [place], | [place], | (premature | | | | [place] [address] | [place] [address] | ventricular | | | | [phone] | [phone] | contraction) | | | | | [...] Gay is a 52 y.o. male. HPI Amilcra Gay is a 52-year-old male with a [...] [facility] in [place], [place]. Today, patient is apprehensive of the [...] tablet Take 1,000 mg by mouth Daily. Benton-3 Fatty Acids (SALMON OIL-1000 PO) CAPS, one [...] tablet Take 1,000 mg by mouth Daily. Benton-3 Fatty Acids (SALMON OIL-1000 PO) CAPS, one [...] Gay Date: December 21, 2012 : 1960 Telephone Operators Supervisor: PARISA Velazquez Device Lead Security Officer: Research for [employer] Sense (mV) Impedance (?) Capture (V) Capture (ms) A Lead 4-5.6 423 1.5 0.09 RV Lead >31.36 539 2.0 0.09 LV Lead Battery Impedance (?): 301 Battery Voltage (V): 2.8 MA Interval (ms): 140 AR Interval (ms): 210 VA Conduction: Mode Switch Events: N/A % of time: -HVAC INSTALLATION TECHNICIAN: 0.6 AP-HVAC INSTALLATION TECHNICIAN: 1.3 -VS: 23.9 AP-VS: 74.2 HVAC INSTALLATION TECHNICIAN: Magnetic Rate: 85 LINDA: 65 LEAH: [...] ncy department at [facility] in [place], [place]. EKG showed normal sinus rhythm with [...] I will d iscuss this option with talent management specialist in [place]. 7. Followup in 2-4 weeks. Portions of this report were transcribed using voice recognition software. Every effort wa s made to ensure accuracy; however, inadvertent computerized ladies suit operator errors may be pre sent. documented in this encounter Plan of Treatment +--------+ + + + + | Date | Type | Specialty | Care Team | Description | +--------+ + + + + | 08/21/ | Implant | Cardiology | Daljit Singletary, | Remote Device | | 2019 | Monitor | | MD [address] [place] | Interrogation | | | | | [place], | (Primary Dx); | | | | | [place] [address] | Pacemaker; | | | | | [phone] | Sinoatrial node | | | | | | dysfunction (HCC) | | | | | | with symptomatic | | | | | | bradycardia | +--------+ + + + + | 08/21/ | Implant | Cardiology | Daljit Singletary, | Remote Device | | 2019 | Monitor | | MD [address] [place] | Interrogation | | | | | [place], | (Primary Dx); | | | | | [place] [address] | Pacemaker; | | | | | [phone] | Sinoatrial node | | | | | | dysfunction (HCC) | | | | | | with symptomatic | | | | | | bradycardia | +--------+ + + + + | 08/21/ | Implant | Cardiology | Daljit Singletary, | Remote Device | | 2019 | Monitor | | MD [address] [place] | Interrogation | | | | | [place], | (Primary Dx); | | | | | [place] [address] | Pacemaker; | | | | | [phone] | Sinoatrial node | | | | [...] Dx); | | | | | [place] [address] | Pacemaker; | | | | | [phone] | Sinoatrial node | | | | | | dysfunction ([facility]) | | | | | | with symptomatic | | | | | | bradycardia | +--------+ + + + + | 08/21/ | Implant | Cardiology | Daljit Singletary, | Remote Device | | 2019 | Monitor | | MD [address] [place] | Interrogation | | | | | [place], | (Primary Dx); | | | | | [place] [address] | Pacemaker; | | | | | [phone] | Sinoatrial node | | | | [...] | | | | | | [place], | | | | | | [place] [address] | | | | | | [phone] | | | | | | | | +--------+ + + + + documented as of this encounter Results ECHO Complete (12/30/2012 4:08 PM PST) + + | Specimen | + + | | + + + + + | Narrative | Performed At | + + + | [facility] Diagnostic Imaging | PECOS | | Department [address] [facility], [place] | [facility] | | [ rep ct [address]] [ rep ct [facility] | | [facility]] Signed | - IMAGING | | | | | Patient Name: MOE GAY | | | Physician: MIGUELINA : 1960 Age: 52 Sex: M Unit | | | #: [id number] Exam Date: 12/30/12 Location: | | | [facility] [place] #: [id number] Page: | | | %(RAD)RES..mtdd.print.filter("pg") of %(RAD) | | | RES..mtdd.print.filter("tpg") | | | | | | Accession Number: [id number] | | | E C H O C A R D I O G R A P H Y R E P O R T | | | HEIGHT: 76" WEIGHT: 270# | | | FIXED INCOME DIRECTOR: JAMEEL REFERRING DR: TIMMY DRAKE DR: | [...] | | Transcribed Date/Time: 12/30/2012 16:34 Electrical Mechanic: | | | <<Signature on File>> | | | Daljit | | | MD [facility] FAS01/02/13 0955 <Electronically signed by | | | Daljit Singletary MD, [facility], FACP, FASE, FASNC> Rashadong | | | MD [facility] 12/30/12 1608 Electrical Mechanic: Jessica | | | Etiuhyfllqybi51/08/13 1634 Daljit Singletary MD FACC | | | FASE | | + + + + + + + + | Performing | Address | City/State/Zipcode | Phone Number | | Organization | | | | + + + + + | [facility] | [address] | [place], [place] | [phone] | | [facility] | | [address] | | | - IMAGING | | | | + + + + + documented in this encounter Visit Diagnoses + + | Diagnosis | + + | Palpitations - Primary | + + | PVC (premature ventricular contraction) Other premature beats | + + | [...]
--- OUTSIDE RECORDS SUMMARY | ~2020-08-06 | XMS | Encounter Summary ---
Demographics + + + | Address | [address] | | | [place] [address] | + + + | Home Phone [...] Team Providers + +------+ + | Care Cold Roll Operator Name | Role | Phone [...] + + | 11/03/ | Refill | [facility] | Kirk French | Medication Refill | | 2019 | | [facility] | MD Brea [address] | | | | | [facility] | | | | | [address] | [place] [address] | | | | | [place], [place] | [phone] | | | | | [address] | | | | | | [phone] | | | +--------+--------+ + + + [...] Miscellaneous Notes Telephone Encounter - Geri Bear Chief Order Dispatcher - 11/03/2019 10:05 AM PSTRefill Shanell ctronically signed by Geri Bear Chief Order Dispatcher at 11/03/2019 10:05 AM PSTdocumented in this encounter Plan of Treatment +--------+ + + + + | Date | Type | Specialty | Care Team | Description | +--------+ + + + + | 08/21/ | Implant | Cardiology | Daljit Singletary, | Remote Device | | 2019 | Monitor | | MD [address] | Interrogation | | | | | [place], | (Primary Dx); | | | | | [place] [address] | Pacemaker; | | | | | [phone] | Sinoatrial node | | | | | | dysfunction (HCC) | | | | | | with symptomatic | | | | | | bradycardia | +--------+ + + + + | 08/21/ | Implant | Cardiology | Daljit Singletary, | Remote Device | | 2019 | Monitor | | MD [address] | Interrogation | | | | | [place], | (Primary Dx); | | | | | [place] [address] | Pacemaker; | | | | | [phone] | Sinoatrial node | | | | | | dysfunction (HCC) | | | | | | with symptomatic | | | | | | bradycardia | +--------+ + + + + | 08/21/ | Implant | Cardiology | Daljit Singletary, | Remote Device | | 2020 | Monitor | | MD [address] | Interrogation | | | | | [place], | (Primary Dx); | | | | | [place] [address] | Pacemaker; | | | | | [phone] | Sinoatrial node | | | | | | dysfunction (HCC) | | | | | | with symptomatic | | | | | | bradycardia | +--------+ + + + + | 08/21/ | Implant | Cardiology | Daljit Singletary, | Remote Device | | 2019 | Monitor | | MD [address] | Interrogation | | | | | [place], | (Primary Dx); | | | | | [place] [address] | Pacemaker; | | | | | [phone] | Sinoatrial node | | | | | | dysfunction (HCC) | | | | | | with symptomatic | | | | | | bradycardia | +--------+ + + + + | 08/21/ | Implant | Cardiology | Daljit Singletary, | Remote Device | | 2019 | Monitor | | MD [address] | Interrogation | | | | | [place], | (Primary Dx); | | | | | [place] [address] | Pacemaker; | | | | | [phone] | Sinoatrial node | | | | [...] | | | | | | [place] [id number] | | | | | | [phone] | | | | | | | | +--------+ + + + + documented as of this encounter Visit Diagnoses Not on filedocumented in this encounter"
--- OUTSIDE RECORDS SUMMARY | ~2020-08-06 | XMS | Encounter Summary ---
Demographics + + + | Address | [address] | | | [place] [address] | + + + | Home Phone [...] Providers + +------+ + | Care Supervisor Asphalt Paving Name | Role | Phone | + [...] + + | 06/17/ | Telephone | [facility] | Silvia, | Lab Order (due for | | 2015 | | CARDIOLOGY [address] | fasting labs prior | | | | [place], | [place], | to appt) | | | | [place] [address] | [place] [address] | | | | | [phone] | [phone] | | | | | | | [...] stated Lab order s were not at [facility]. Faxed order to [facility] in [place]. Spoke to Geri from [facility] and confirmed she received the order. Patient will draw labs on 06/20/16.Electronically sign ed by Shea Metcalf at 06/19/2016 9:04 AM PDTTelephone Encounter - Nereida Lambert - 10:02 AM PDTPatient returned Jay's call and was notified of fasting blood work due prior to his follow up on 06-23-16. Patient requested that orders be faxed to [facility] in [place] and he plans to do blood work tomorrow morning. Forwarding to [place] to fax orders. Petty armendariz signed by [...] Interrogation | | | | | [place], | (Primary Dx); | | | | | [place] [address] | Pacemaker; | | | | | [phone] | Sinoatrial node | | | | | | dysfunction (HCC) | | | | | | with symptomatic | | | | | | bradycardia | +--------+ + + + + | 08/21/ | Implant | Cardiology | Daljit Singletary, | Remote Device | | 2019 | Monitor | | MD [address] | Interrogation | | | | | [place], | (Primary Dx); | | | | | [place] [address] | Pacemaker; | | | | | [phone] | Sinoatrial node | | | | | | dysfunction (HCC) | | | | | | with symptomatic | | | | | | bradycardia | +--------+ + + + + | 08/21/ | Implant | Cardiology | Daljit Singletary | Remote Device | | 2019 | Monitor | | MD [address] | Interrogation | | | | | [place], | (Primary Dx); | | | | | [place] [address] | Pacemaker; | | | | | [phone] | Sinoatrial node | | | | | | dysfunction (HCC) | | | | | | with symptomatic | | | | | | bradycardia | +--------+ + + + + | 08/21/ | Implant | Cardiology | Daljit Singletary, | Remote Device | | 2019 | Monitor | | MD [address] | Interrogation | | | | | [place], | (Primary Dx); | | | | | [place] [address] | Pacemaker; | | | | | [phone] | Sinoatrial node | | | | | | dysfunction (HCC) | | | | | | with symptomatic | | | | | | bradycardia | +--------+ + + + + | 08/21/ | Implant | Cardiology | Daljit Singletary, | Remote Device | 2019 | Monitor | | MD [address] | Interrogation | | | | | [place], | (Primary Dx); | | | | | [place] [address] | Pacemaker; | | | | | [phone] | Sinoatrial node | | | | [...] W | | | | | | [place], | | | | | | [place] [address] | | | | | | [phone] | | | | | | | [...]
--- OUTSIDE RECORDS SUMMARY | ~2020-08-06 | XMS | Encounter Summary ---
Demographics + + + | Address | [address] | | | [place] [address] | + + + | Home Phone [...] Providers + +------+ + | Care Heavy Duty Diesel Mechanic Name | Role | Phone | + +------+ + PCP | Unavailable | + +------+ + Encounter Details +--------+ + + + + | Date | Type | Department | Care Team | Description | +--------+ + + + + | 01/21/ | Emergency | [facility] | Kirill Dominique | Unspecified Chest | | 2009 | | [facility] | MD Jonas [address] | Pain | | | | EMERGENCY CENTER | [address] [place] | | | | | [address] | [address] | | | | | [place], [place] | [phone] | | | | | [address] | | | | | | [phone] | | | +--------+ + + + [...] | Monitor | | MD [address] | Interrogation | | | | | [place], | (Primary Dx); | | | | | [place] [address] | Pacemaker; | | | | | [phone] | Sinoatrial node | | | | | | dysfunction (HCC) | | | | | | with symptomatic | | | | | | bradycardia | +--------+ + + + + | 08/21/ | Implant | Cardiology | Daljit Singletary, | Remote Device | | 2020 | Monitor | | MD [address] | Interrogation | | | | | [place], | (Primary Dx); | | | | | [place] [address] | Pacemaker; | | | | | [phone] | Sinoatrial node | | | | | | dysfunction (HCC) | | | | | | with symptomatic | | | | | | bradycardia | +--------+ + + + + | 08/21/ | Implant | Cardiology | Daljit Singletary, | Remote Device | | 2019 | Monitor | | MD [address] | Interrogation | | | | | [place], | (Primary Dx); | | | | | [place] [address] | Pacemaker; | | | | | [phone] | Sinoatrial node | | | | | | dysfunction (HCC) | | | | | | with symptomatic | | | | | | bradycardia | +--------+ + + + + | 08/21/ | Implant | Cardiology | Daljit Singletary, | Remote Device | | 2019 | Monitor | | MD [address] | Interrogation | | | | | [place], | (Primary Dx); | | | | | [place] [address] | Pacemaker; | | | | | [phone] | Sinoatrial node | | | | | | dysfunction (HCC) | | | | | | with symptomatic | | | | | | bradycardia | +--------+ + + + + | 08/21/ | Implant | Cardiology | Daljit Singletary, | Remote Device | | 2019 | Monitor | | MD [address] | Interrogation | | | | | [place], | (Primary Dx); | | | | | [place] [address] | Pacemaker; | | | | | [phone] | Sinoatrial node | | | | [...] W | | | | | | [place], | | | | | | [place] [address] | | | | | | [phone] | | | | | | | [...]
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
--- NOTE | 2020-08-07 13:21 | EKG ---
[facility] [address] [place] [address] Signed Atrial-paced rhythm T wave abnormality, consider inferior ischemia Abnormal ECG When compared with ECG of 15-JUN-2020 21:56, Electronic atrial pacemaker has replaced Sinus rhythm Confirmed by DEO FLORES DO ([id number]) on 08/07/2020 1:20:42 PM Electronically Signed By: DEO FLORES DO 08/07/20 1321 PATIENT NAME: PINA GAY SARAH Electrocardiogram DATE OF : 58 PHYSICIAN: DEO FLORES DO REPORT #: [id number] REPORT IS CONFIDENTIAL AND NOT TO BE RELEASED WITHOUT AUTHORIZATION
== END 2020-08-06 23:19 | disposition home or self-care (01) ==
LOC: ED 21:28
DX: R55 Syncope and collapse (principal); I10 Essential (primary) hypertension; E78.00 Pure hypercholesterolemia, unspecified; F17.200 Nicotine dependence, unspecified, uncomplicated; Z88.0 Allergy status to penicillin; Z88.5 Allergy status to narcotic agent; Z88.8 Allergy status to other drugs, medicaments and biological substances; Z79.899 Other long term (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; Z79.82 Long term (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
CPT/HCPCS: 71045; 80053; 81001; 83735; 83880; 84484; 85025; 85610; 85730; 93005; 93010; 99285-25

== ENCOUNTER 2020-08-23 19:42 | Emergency (ER) | payer MEDICARE | END 2020-08-23 22:01 | disposition home or self-care (01) | LOC: ED 19:42 | DX: K58.0 Irritable bowel syndrome with diarrhea (principal); I10 Essential (primary) hypertension; E78.00 Pure hypercholesterolemia, unspecified; F17.200 Nicotine dependence, unspecified, uncomplicated; Z88.0 Allergy status to penicillin; Z88.5 Allergy status to narcotic agent; Z88.8 Allergy status to other drugs, medicaments and biological substances; Z88.1 Allergy status to other antibiotic agents; Z79.899 Other long term (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; Z79.82 Long term (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 ==

== ENCOUNTER 2020-09-30 06:22 | Emergency (ER) | payer MEDICARE ==
[~2020-09-30] VITALS: Ht 193 cm; Wt 123.1 kg
[~2020-09-30 06:22] MED LIST changes: +COLESTID1 GM PO; +ONDANSETRON ODT8 MG PO
--- OUTSIDE RECORDS SUMMARY | 2020-09-30 06:24 | XMS ---
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 Elopement at [facility] 04/15/2020 20:03 - Other Details: PATIENT LWBS. CRITERIA MET - Group Notification - 6 ED Visits in 6 Months - [facility] - Has Care Guidelines - PDMP - [facility] - 2 Visits in 30 Days CARE PROVIDERS TOO MORALES Specialist 09/05/2019-Current MD Cr PHONE: Unknown SARAH PEOPLES Internal Medicine Current PHONE: [phone] Joseline has no Care Guidelines for this patient. 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 - CHW PROVIDED DR COSTA WITH DR BUTT CONTACT INFORMATION-THEY HAVE ACCESS TO [facility] RECORDS AND WERE ABLE TO PULL UP PATIENT PAST VISIT WITH DR BUTT. - GOING FORWARD DR COSTA WOULD LIKE ED RECORDS SENT TO THE OFFICE [phone]. THEY WILL WORK WITH DR BUTT AND COMMUNICATE ON PATIENT CHRONIC CONDITION. 01/01/2020 [facility] Care Recommendation: - USE EXTREME CAUTION IN GIVING NARCOTICS. - Avoid Discharge Narcotic prescriptions if at all possible. Physician discretion. 12/06/2019 [facility] -SPOKE WITH PATIENT REGARDING CHRONIC CARE AND ED USE -PATIENT HAS GASTROENTEROLOGY APPT WITH DR COSTA ([facility]) 12/18/19 0830 - STATES HE HAS A RIDE -PATIENT HAS CARDIOLOGY APPT WITH DR TURNER ([facility]) 01/01/20 0730 -CONACT INFO GIVEN FOR CASE MANAGEMENT FOR HELP WITH RESOURCES Rhea VISIT COUNT (12 MO.) 3 [facility] 18 [facility] TOTAL 21 NOTE: Visits indicate total known visits. ED/UCC VISIT TRACKING (12 MO.) 09/30/2020 06:23 [facility] [place] TYPE: Emergency COMPLAINT: - FLANK PAIN/POSS KIDNEY STONE 09/13/2020 21:00 [facility] [place] TYPE: Emergency DIAGNOSES: - Myalgia, other site - FALL 08/23/2020 19:42 [facility] [place] TYPE: Emergency COMPLAINT: - DIARRHEA/NAUSEA DIAGNOSES: - Allergy status to other drugs, medicaments and biological substances - Irritable bowel syndrome with diarrhea - Allergy status to narcotic agent - Allergy status to penicillin - Diarrhea, unspecified - Other filler leaf cutter long (current) drug therapy - Allergy status to other antibiotic agents - Pure hypercholesterolemia, unspecified - Nicotine dependence, unspecified, uncomplicated - Essential (primary) hypertension - assisted (current) use of aspirin 08/06/2020 21:29 [facility] [place] [facility]: [facility] COMPLAINT: - BLOOD PRESSURE ISSUE/DIZZINESS DIAGNOSES: - Pure hypercholesterolemia, unspecified - Syncope and collapse - Allergy status to penicillin - Allergy status to narcotic agent - Other filler leaf cutter long (current) drug therapy - Shortness of breath - Allergy status to other drugs, medicaments and biological substances - Essential (primary) hypertension - 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 [facility]07[facility]2020 [facility] COMPLAINT: - LEFT LEG PAIN/ NON INJURY DIAGNOSES: - Allergy status to penicillin - assisted (current) use of aspirin - Allergy status to other antibiotic agents - Essential (primary) hypertension - Other fracture of upper and lower end of left fibula, subsequent encounter for closed fracture with routine healing - Other detention (current) drug therapy - Allergy status to narcotic agent - Other fracture of upper and lower end of left fibula, initial encounter for closed fracture - Pain in left lower leg - Allergy status to other drugs, medicaments and biological substances 06/03/2020 13:29 [facility] [place] TYPE: Emergency COMPLAINT: - LEG PAIN, INJ DIAGNOSES: - Procedure and treatment not carried out due to patient leaving prior to being seen by health care provider 05/03/2020 13:19 [facility] [place] TYPE: Emergency DIAGNOSES: - Unspecified injury of right shoulder and upper arm, initial encounter - Unspecified injury of right hip, initial encounter - fall, shoulder pain,back pain 04/28/2020 15:37 [facility] [place] TYPE: Emergency DIAGNOSES: - Epigastric pain - VOMITING DIARRHEA ABD PAIN - Nausea with vomiting, unspecified 04/15/2020 23:22 [facility] [place] TYPE: Emergency COMPLAINT: - ANKLE INJURY DIAGNOSES: - Allergy status to other drugs, medicaments and biological substances - Pain in left ankle and joints of left foot - Pure hypercholesterolemia, unspecified - Other filler leaf cutter long (current) drug therapy - Fall on same level, unspecified, initial encounter - Essential (primary) hypertension - Allergy status to narcotic agent - Displaced fracture of lateral malleolus of left fibula, initial encounter for closed fracture - Allergy status to penicillin 04/15/2020 20:03 [facility] [place] TYPE: Emergency COMPLAINT: - L ANKLE PAIN/INJ DIAGNOSES: - Procedure and treatment not carried out due to patient leaving prior to being seen by health care provider - Procedure and treatment not carried out due to patient leaving prior to being seen by health care provider 04/13/2020 20:46 [facility] [place] TYPE: Emergency COMPLAINT: - RT SHOULDER PAIN DIAGNOSES: - Allergy status to penicillin - Exposure to other specified factors, initial encounter - Pure hypercholesterolemia, unspecified - Strain of unspecified muscle, fascia and tendon at shoulder and upper arm level, right arm, initial encounter - Pain in right shoulder - Allergy status to narcotic agent - Other filler leaf cutter long (current) drug therapy - Essential (primary) hypertension 01/20/2020 12:56 [facility] [place] TYPE: Emergency COMPLAINT: - VOMITING, DIARRHEA DIAGNOSES: - Other detention (current) drug therapy - Nausea - Allergy status to penicillin - Diarrhea, unspecified - Pure hypercholesterolemia, unspecified - Unspecified abdominal pain - Essential (primary) hypertension 01/05/2020 22:34 [facility] [place] TYPE: Emergency COMPLAINT: - BLEEDING/ABDOMINAL PAIN DIAGNOSES: - Other filler leaf cutter long (current) drug therapy - Allergy status to narcotic agent - Allergy status to penicillin - Allergy status to other antibiotic agents - Noninfective gastroenteritis and colitis, unspecified - Essential (primary) hypertension - 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 - Lower abdominal pain, unspecified 12/31/2019 10:38 [facility] [place] TYPE: Emergency COMPLAINT: - ABD PAIN, BLOOD IN STOOL DIAGNOSES: - Allergy status to other antibiotic agents - Unspecified abdominal pain - Allergy status to narcotic agent - Right lower quadrant pain - Other detention (current) drug therapy - Other fecal abnormalities - assisted (current) use of aspirin - Allergy status to penicillin - Other chronic pain - Essential (primary) hypertension 12/06/2019 13:52 [facility] [place] TYPE: Emergency COMPLAINT: - ABDOMINAL PAIN DIAGNOSES: - Allergy status to other antibiotic agents - Allergy status to penicillin - 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 - Unspecified abdominal pain - Essential (primary) hypertension - Other filler leaf cutter long (current) drug therapy - Allergy status to other drugs, medicaments and biological substances - Diarrhea, unspecified - Allergy status to narcotic agent 11/16/2019 17:05 [facility] [place] TYPE: Emergency [...] dependence - Essential (primary) hypertension - Other detention (current) drug therapy - assisted (current) use of aspirin - Allergy status to other antibiotic agents - Allergy status to narcotic agent 11/01/2019 12:00 [facility] [place] TYPE: Emergency COMPLAINT: - ABD PAIN DIAGNOSES: - 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 - Diarrhea, unspecified - Essential (primary) hypertension - Allergy status to narcotic agent - Allergy status to penicillin - Noninfective gastroenteritis and colitis, unspecified - Nicotine dependence, unspecified, uncomplicated - Other detention (current) drug therapy 10/27/2019 22:50 [facility] [place] TYPE: Emergency COMPLAINT: - NECK PAIN DIAGNOSES: - Allergy status to other drugs, medicaments and biological substances - Other chronic pain - Allergy status to penicillin - Headache - Allergy status to narcotic agent - Other detention (current) drug therapy - assisted (current) use of aspirin - Cervicalgia - Allergy status to other antibiotic agents - Personal history of nicotine dependence - Essential (primary) hypertension Plus 1 More Visit INPATIENT VISIT TRACKING (12 MO.) No inpatient visits to display in this time frame [email or web address]
[2020-09-30] MEDS ORDERED: NORCO 7.5-3251 EACH PO (08:14)
[2020-09-30] MEDS ORDERED: ONDANSETRON ODT8 MG PO (08:14)
[2020-09-30] MEDS ORDERED: FLOMAX0.4 MG PO (08:14)
== END 2020-09-30 09:19 | disposition home or self-care (01) ==
LOC: ED 06:22
DX: N13.2 Hydronephrosis with renal and ureteral calculous obstruction (principal); I10 Essential (primary) hypertension; F17.200 Nicotine dependence, unspecified, uncomplicated; E78.00 Pure hypercholesterolemia, unspecified; Z88.0 Allergy status to penicillin; Z88.5 Allergy status to narcotic agent; Z88.8 Allergy status to other drugs, medicaments and biological substances; Z88.1 Allergy status to other antibiotic agents; Z79.899 Other long term (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; Z79.82 Long term (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
CPT/HCPCS: 74176; 80053; 81001; 83690; 85025; 96374; 96375; 99284-25; J1170; J1885; J2405

== ENCOUNTER 2020-10-04 13:19 | Emergency (ER) | payer MEDICARE ==
[~2020-10-04] VITALS: Ht 193 cm; Wt 122.6 kg
[~2020-10-04 13:19] MED LIST changes: +NORCO 7.5-3251 EACH PO
--- OUTSIDE RECORDS SUMMARY | 2020-10-04 13:22 | XMS ---
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 Elopement at [facility] 04/15/2020 20:03 - Other Details: PATIENT LWBS. CRITERIA MET - Group Notification - 6 ED Visits in 6 Months - [facility] - Has Care Guidelines - PDMP - [facility] - 2 Visits in 30 Days CARE PROVIDERS TOO MORALES Specialist 09/05/2019-Current MD Cr PHONE: Unknown SARAH PEOPLES Internal Medicine Current PHONE: [phone] Joseline has no Care Guidelines for this patient. Care History Medical/Surgical 01/02/2020 [facility] - CHW CONTACTED DR COSTA OFFICE- [employer]- [phone] SPOKE WITH GINNY CHILDRESS- PATIENT HAS A COLONOSCOPY SCHEDULED 01/22/2020 ALONG WITH PILL CAMERA PROCEDURE AFTER. - CHW PROVIDED DR COSTA WITH DR BUTT CONTACT INFORMATION-THEY HAVE ACCESS TO [facility] RECORDS AND WERE ABLE TO PULL UP PATIENT PAST VISIT WITH DR BUTT. - GOING FORWARD DR COSTA WOULD LIKE ED RECORDS SENT TO THE OFFICE [phone]. THEY WILL WORK WITH DR BUTT AND COMMUNICATE ON PATIENT CHRONIC CONDITION. 01/01/2020 [facility] Care Recommendation: - USE EXTREME CAUTION IN GIVING NARCOTICS. - Avoid Discharge Narcotic prescriptions if at all possible. Physician discretion. 12/06/2019 [facility] -SPOKE WITH PATIENT REGARDING CHRONIC CARE AND ED USE -PATIENT HAS GASTROENTEROLOGY APPT WITH DR COSTA ([facility]) 12/18/19 0830 - STATES HE HAS A RIDE -PATIENT HAS CARDIOLOGY APPT WITH DR TURNER ([facility]) 01/01/20 0730 -CONACT INFO GIVEN FOR CASE MANAGEMENT FOR HELP WITH RESOURCES Rhea VISIT COUNT (12 MO.) 3 [facility] TOTAL 21 NOTE: Visits indicate total known visits. 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 - Nicotine dependence, unspecified, uncomplicated - Essential (primary) hypertension - Other terminal press operator (current) drug therapy - Allergy status to narcotic agent - Allergy status to penicillin - Allergy status to other drugs, medicaments and biological substances - Pure hypercholesterolemia, unspecified - Unspecified abdominal pain 09/13/2020 21:00 [facility] [place] TYPE: Emergency DIAGNOSES: - Myalgia, other site - FALL 08/23/2020 19:42 [facility] TYPE: Emergency COMPLAINT: - DIARRHEA/NAUSEA DIAGNOSES: - Allergy status to other drugs, medicaments and biological substances - Irritable bowel syndrome with diarrhea - Allergy status to narcotic agent - Allergy status to penicillin - Diarrhea, unspecified - Other intermediate (current) drug therapy - Allergy status to other antibiotic agents - Pure hypercholesterolemia, unspecified - Nicotine dependence, unspecified, uncomplicated - Essential (primary) hypertension - 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 08/06/2020 21:29 [facility] TYPE: Emergency COMPLAINT: - BLOOD PRESSURE ISSUE/DIZZINESS DIAGNOSES: - Pure hypercholesterolemia, unspecified - Syncope and collapse - Allergy status to penicillin - Allergy status to narcotic agent - Other terminal press operator (current) drug therapy - Shortness of breath - Allergy status to other drugs, medicaments and biological substances - Essential (primary) hypertension - group home (current) use of aspirin - Nicotine dependence, unspecified, uncomplicated 06/15/2020 21:47 [facility] TYPE: Emergency COMPLAINT: - CHEST PAIN DIAGNOSES: - Other terminal press operator (current) drug therapy - Essential (primary) hypertension - Allergy status to narcotic agent - Allergy status to penicillin - Allergy status to other antibiotic agents - Allergy status to other drugs, medicaments and biological substances - Chest pain, unspecified - 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 06/07/2020 21:29 [facility] TYPE: Emergency COMPLAINT: - LEFT LEG PAIN/ NON INJURY DIAGNOSES: - Allergy status to penicillin - 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 - Allergy status to other antibiotic agents - Essential (primary) hypertension - Other fracture of upper and lower end of left fibula, subsequent encounter for closed fracture with routine healing - Other terminal press operator (current) drug therapy - Allergy status [...] seen by health care provider 05/03/2020 13:19 [facility] [place] TYPE: Emergency DIAGNOSES: - Unspecified injury of right shoulder and upper arm, initial encounter - Unspecified injury of right hip, initial encounter - fall, shoulder pain,back pain 04/28/2020 15:37 [facility] [place] TYPE: Emergency DIAGNOSES: - Epigastric pain - VOMITING DIARRHEA ABD PAIN - Nausea with vomiting, unspecified 04/15/2020 23:22 [facility] TYPE: Emergency COMPLAINT: - ANKLE INJURY DIAGNOSES: - Allergy status to other drugs, medicaments and biological substances - Pain in left ankle and joints of left foot - Pure hypercholesterolemia, unspecified - Other intermediate (current) drug therapy - Fall on same [...] Allergy status to narcotic agent - Other intermediate (current) drug therapy - Essential (primary) hypertension 01/20/2020 12:56 [facility] TYPE: Emergency COMPLAINT: - VOMITING, DIARRHEA DIAGNOSES: - Other intermediate (current) drug therapy - Nausea - Allergy status to penicillin - Diarrhea, unspecified - Pure hypercholesterolemia, unspecified - Unspecified abdominal pain - Essential (primary) hypertension 01/05/2020 22:34 [facility] TYPE: Emergency COMPLAINT: - BLEEDING/ABDOMINAL PAIN DIAGNOSES: - Other intermediate (current) drug therapy - Allergy status to narcotic agent - Allergy status to penicillin - Allergy status to other antibiotic agents - Noninfective gastroenteritis and colitis, unspecified - Essential (primary) hypertension - 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 - Lower abdominal pain, unspecified 12/31/2019 10:38 [facility] TYPE: Emergency COMPLAINT: - ABD PAIN, BLOOD IN STOOL DIAGNOSES: - Allergy status to other antibiotic agents - Unspecified abdominal pain - Allergy status to narcotic agent - Right lower quadrant pain - Other intermediate (current) drug therapy - Other fecal abnormalities - 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 - Allergy status to penicillin - Other chronic pain - Essential (primary) hypertension 12/06/2019 13:52 [facility] TYPE: Emergency COMPLAINT: - ABDOMINAL PAIN DIAGNOSES: - Allergy status to other antibiotic agents - Allergy status to penicillin - 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 - Unspecified abdominal pain - Essential (primary) hypertension - Other intermediate (current) drug therapy - Allergy status to [...] dependence - Essential (primary) hypertension - Other intermediate (current) drug therapy - 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 - Allergy status to other antibiotic agents - Allergy status to narcotic agent 11/01/2019 12:00 [facility] TYPE: Emergency COMPLAINT: - ABD PAIN DIAGNOSES: - 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
[2020-10-04] MEDS ORDERED: HYDROMORPHONE HC4 MG PO (13:38)
[2020-10-04] MEDS ORDERED: CLONAZEPAM1 MG PO (13:38)
[2020-10-04] MEDS ORDERED: PREGABALIN75 MG PO (13:39)
[2020-10-04] MEDS ORDERED: TRAZODONE HCL150 MG PO (13:39)
== END 2020-10-04 16:00 | disposition home or self-care (01) ==
LOC: ED 13:19
DX: R31.9 Hematuria, unspecified (principal); I10 Essential (primary) hypertension; E78.00 Pure hypercholesterolemia, unspecified; F17.200 Nicotine dependence, unspecified, uncomplicated; Z88.0 Allergy status to penicillin; Z88.5 Allergy status to narcotic agent; Z88.8 Allergy status to other drugs, medicaments and biological substances; Z88.1 Allergy status to other antibiotic agents; Z79.899 Other long term (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; Z79.82 Long term (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
CPT/HCPCS: 74176; 80053; 81001; 83605; 85025; 99284-25; J7030

== ENCOUNTER 2020-11-13 09:58 | Emergency (ER) | payer MEDICARE ==
[~2020-11-13] VITALS: Ht 193 cm; Wt 118.1 kg
[~2020-11-13 09:58] MED LIST changes: +HYDROMORPHONE HC4 MG PO; +PREGABALIN75 MG PO; +TRAZODONE HCL150 MG PO
--- OUTSIDE RECORDS SUMMARY | 2020-11-13 10:00 | XMS ---
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 Elopement at [facility] 04/15/2020 20:03 - Other Details: PATIENT LWBS. CRITERIA MET - Group Notification - 6 ED Visits in 6 Months - [facility] - Has Care Guidelines - PDMP CARE PROVIDERS TOO MORALES Specialist 09/05/2019-Current MD Cr PHONE: Unknown SARAH PEOPLES Internal Medicine Current PHONE: [phone] Joseline has no Care Guidelines for this patient. Care History Medical/Surgical 01/02/2020 [facility] - CHW CONTACTED DR COSTA OFFICE- BUTT WELDER- [phone] SPOKE WITH GINNY CHILDRESS- PATIENT HAS A COLONOSCOPY SCHEDULED 01/22/2020 ALONG WITH PILL CAMERA PROCEDURE AFTER. - W PROVIDED DR COSTA WITH DR BUTT CONTACT INFORMATION-THEY HAVE ACCESS TO [facility] RECORDS AND WERE ABLE TO PULL UP PATIENT PAST VISIT WITH DR BUTT. - GOING FORWARD DR COSTA WOULD LIKE ED RECORDS SENT TO THE OFFICE [phone]. THEY WILL WORK WITH DR BUTT AND COMMUNICATE ON PATIENT CHRONIC CONDITION. 01/01/2020 [facility] Care Recommendation: - USE EXTREME CAUTION IN GIVING NARCOTICS. - Avoid Discharge Narcotic prescriptions if at all possible. Physician discretion. 12/06/2019 [facility] -SPOKE WITH PATIENT REGARDING CHRONIC CARE AND ED USE -PATIENT HAS GASTROENTEROLOGY APPT WITH DR COSTA ([facility]) 12/18/19 0830 - STATES HE HAS A RIDE -PATIENT HAS CARDIOLOGY APPT WITH DR TURNER ([facility]) 01/01/20 0730 -CONACT INFO GIVEN FOR CASE MANAGEMENT FOR HELP WITH RESOURCES ERigoberto. VISIT COUNT (12 MO.) 3 [facility] 16 [facility]. TOTAL 19 NOTE: Visits indicate total known visits. 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 - Allergy status to other antibiotic agents - Essential (primary) hypertension - Allergy status to other drugs, medicaments and biological substances - Allergy status to narcotic agent - Pure hypercholesterolemia, unspecified 09/30/2020 06:23 [facility] TYPE: Emergency COMPLAINT: - FLANK PAIN/POSS KIDNEY STONE DIAGNOSES: - Allergy status to other antibiotic agents - Hydronephrosis with renal and ureteral calculous obstruction - half-way (current) use of aspirin - Nicotine dependence, unspecified, uncomplicated - Essential (primary) hypertension - 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 - Allergy status to narcotic agent - Allergy status to penicillin - Allergy status to other drugs, medicaments and biological substances - Pure hypercholesterolemia, unspecified - Unspecified abdominal pain 09/13/2020 21:00 [facility] [place] TYPE: Emergency DIAGNOSES: - Myalgia, other site - FALL 08/23/2020 19:42 [facility] TYPE: Emergency COMPLAINT: - DIARRHEA/NAUSEA DIAGNOSES: - Allergy status to other drugs, medicaments and biological substances - Irritable bowel syndrome with diarrhea - Allergy status to narcotic agent - Allergy status to penicillin - Diarrhea, unspecified - Other nursing home (current) drug therapy - Allergy status to other antibiotic agents - Pure hypercholesterolemia, unspecified - Nicotine dependence, unspecified, uncomplicated - Essential (primary) hypertension - 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 08/06/2020 21:29 [facility] TYPE: Emergency COMPLAINT: - BLOOD PRESSURE ISSUE/DIZZINESS DIAGNOSES: - Pure hypercholesterolemia, unspecified - Syncope and collapse - Allergy status to penicillin - Allergy status to narcotic agent - Other nursing home (current) drug therapy - Shortness of breath - Allergy status to other drugs, medicaments and biological substances - Essential (primary) hypertension - 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 - Nicotine dependence, unspecified, uncomplicated 06/15/2020 21:47 [facility] TYPE: Emergency COMPLAINT: - CHEST PAIN DIAGNOSES: - 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 - Essential (primary) hypertension - Allergy status to narcotic agent - Allergy status to penicillin - Allergy status to other antibiotic agents - Allergy status to other drugs, medicaments and biological substances - Chest pain, unspecified - 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 06/07/2020 21:29 [facility] TYPE: Emergency COMPLAINT: - LEFT LEG PAIN/ NON INJURY DIAGNOSES: - Allergy status to penicillin - half-way (current) use of aspirin - Allergy status to other antibiotic agents - Essential (primary) hypertension - Other fracture of upper and lower end of left fibula, subsequent encounter for closed fracture with routine healing - Other nursing home (current) drug therapy [...] seen by health care provider 05/03/2020 13:19 [facility] OR TYPE: Emergency DIAGNOSES: - Unspecified injury of right shoulder and upper arm, initial encounter - Unspecified injury of right hip, initial encounter - fall, shoulder pain,back pain 04/28/2020 15:37 [facility] OR TYPE: Emergency DIAGNOSES: - Epigastric pain - VOMITING DIARRHEA ABD PAIN - Nausea with vomiting, unspecified 04/15/2020 23:22 [facility] TYPE: Emergency COMPLAINT: - ANKLE INJURY DIAGNOSES: - Allergy status to other drugs, medicaments and biological substances - Pain in left ankle and joints of left foot - Pure hypercholesterolemia, unspecified - Other nursing home (current) drug therapy - Fall on same [...] Allergy status to narcotic agent - 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 - Essential (primary) hypertension 01/20/2020 12:56 [facility] TYPE: Emergency COMPLAINT: - VOMITING, DIARRHEA DIAGNOSES: - Other nursing home (current) drug therapy - Nausea - Allergy status to penicillin - Diarrhea, unspecified - Pure hypercholesterolemia, unspecified - Unspecified abdominal pain - Essential (primary) hypertension 01/05/2020 22:34 [facility] TYPE: Emergency COMPLAINT: - BLEEDING/ABDOMINAL PAIN DIAGNOSES: - 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 - Allergy status to narcotic agent - Allergy status to penicillin - Allergy status to other antibiotic agents - Noninfective gastroenteritis and colitis, unspecified - Essential (primary) hypertension - half-way (current) use of aspirin - Lower abdominal pain, unspecified 12/31/2019 10:38 [facility] TYPE: Emergency COMPLAINT: - ABD PAIN, BLOOD IN STOOL DIAGNOSES: - Allergy status to other antibiotic agents - Unspecified abdominal pain - Allergy status to narcotic agent - Right lower quadrant pain - 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
== END 2020-11-13 13:49 | disposition home or self-care (01) ==
LOC: ED 09:58
DX: S30.1XXA Contusion of abdominal wall, initial encounter (principal); W17.89XA Other fall from one level to another, initial encounter; I10 Essential (primary) hypertension; E78.00 Pure hypercholesterolemia, unspecified; F17.200 Nicotine dependence, unspecified, uncomplicated; Z88.0 Allergy status to penicillin; Z88.5 Allergy status to narcotic agent; Z88.8 Allergy status to other drugs, medicaments and biological substances; Z88.1 Allergy status to other antibiotic agents; Z79.899 Other long term (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; Z79.82 Long term (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
CPT/HCPCS: 74177; 80053; 81001; 83690; 85025; 99284-25; J1170; J7030; Q9967

== ENCOUNTER 2020-12-28 18:31 | Emergency (ER) | payer MEDICARE ==
[~2020-12-28] VITALS: Ht 193 cm; Wt 118.1 kg
--- OUTSIDE RECORDS SUMMARY | 2020-12-28 18:34 | XMS ---
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 Elopement at [facility] 04/15/2020 20:03 - Other Details: PATIENT LWBS. CRITERIA MET - Group Notification - 6 ED Visits in 6 Months - [facility] - Has Care Guidelines - PDMP - [facility] - 2 Visits in 30 Days CARE PROVIDERS TOO MORALES Specialist 09/05/2019-Current MD Cr PHONE: Unknown SARAH PEOPLES Internal Medicine Current PHONE: [phone] Joseline has no Care Guidelines for this patient. 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 - CHW PROVIDED DR COSTA WITH DR BUTT CONTACT INFORMATION-THEY HAVE ACCESS TO [facility] RECORDS AND WERE ABLE TO PULL UP PATIENT PAST VISIT WITH DR BUTT. - GOING FORWARD DR COSTA WOULD LIKE ED RECORDS SENT TO THE OFFICE [phone]. THEY WILL WORK WITH DR BUTT AND COMMUNICATE ON PATIENT CHRONIC CONDITION. 01/01/2020 [facility] Care Recommendation: - USE EXTREME CAUTION IN GIVING NARCOTICS. - Avoid Discharge Narcotic prescriptions if at all possible. Physician discretion. 12/06/2019 [facility] -SPOKE WITH PATIENT REGARDING CHRONIC CARE AND ED USE -PATIENT HAS GASTROENTEROLOGY APPT WITH DR COSTA ([facility]) 12/18/19 0830 - STATES HE HAS A RIDE -PATIENT HAS CARDIOLOGY APPT WITH DR TURNER ([facility]) 01/01/20 0730 -CONACT INFO GIVEN FOR CASE MANAGEMENT FOR HELP WITH RESOURCES Rhea VISIT COUNT (12 MO.) 3 [facility] 1 [facility] 15 [facility]. TOTAL 19 NOTE: Visits indicate total known visits. 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 - Pure hypercholesterolemia, unspecified - Allergy status to other drugs, medicaments and biological substances - Allergy status to narcotic agent - Allergy status to narcotic agent - Allergy status to penicillin - Left lower quadrant pain - Nicotine dependence, unspecified, uncomplicated - Allergy status to other antibiotic agents - Other fall from one level to another, initial encounter - Allergy status to other antibiotic agents - Allergy status to other drugs, medicaments and biological substances - 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 (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 10/04/2020 13:20 [facility] [place] TYPE: Emergency COMPLAINT: - URINATING BLOOD DIAGNOSES: - Allergy status to penicillin - Nicotine dependence, unspecified, uncomplicated - custodial (current) use of aspirin - Hematuria, unspecified - Other shelter (current) drug therapy - Allergy status to other antibiotic agents - Essential (primary) hypertension - Allergy status to other drugs, medicaments and biological substances - Allergy status to narcotic agent - Pure hypercholesterolemia, unspecified 09/30/2020 06:23 [facility] [place] TYPE: Emergency COMPLAINT: - FLANK PAIN/POSS KIDNEY STONE DIAGNOSES: - Allergy status to other antibiotic agents - Hydronephrosis with renal and ureteral calculous obstruction - custodial (current) use of aspirin - Nicotine dependence, unspecified, uncomplicated - Essential (primary) hypertension - 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 - Allergy status to narcotic agent - Allergy status to penicillin - Allergy status to other drugs, medicaments and biological substances - Allergy status to narcotic agent - Allergy status to other drugs, medicaments and biological substances - Pure hypercholesterolemia, unspecified - Allergy status to other antibiotic agents - Unspecified abdominal pain 09/13/2020 21:00 [facility] [place] TYPE: Emergency DIAGNOSES: - Myalgia, other site - FALL 08/23/2020 19:42 [facility] [place] TYPE: Emergency COMPLAINT: - DIARRHEA/NAUSEA DIAGNOSES: - Allergy status to other drugs, medicaments and biological substances - Irritable bowel syndrome with diarrhea - Allergy status to narcotic agent - Allergy status to penicillin - Diarrhea, unspecified - 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 - Allergy status to other antibiotic agents - Pure hypercholesterolemia, unspecified - Nicotine dependence, unspecified, uncomplicated - Essential (primary) hypertension - custodial (current) use of aspirin 08/06/2020 21:29 [facility] [place] TYPE: Emergency COMPLAINT: - BLOOD PRESSURE ISSUE/DIZZINESS DIAGNOSES: - Pure hypercholesterolemia, unspecified - Syncope and collapse - Allergy status to penicillin - Allergy status to narcotic agent - 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 [place] TYPE: Emergency COMPLAINT: - LEG PAIN, INJ DIAGNOSES: - Procedure and treatment not carried out due to patient leaving prior to being seen by health care provider 05/03/2020 13:19 [facility] [place] [employer] [place] TYPE: Emergency DIAGNOSES: - Unspecified injury of right shoulder and upper arm, initial encounter - Unspecified injury of right hip, initial encounter - fall, shoulder pain,back pain 04/28/2020 15:37 [facility] [place] TYPE: Emergency DIAGNOSES: - Epigastric pain - VOMITING DIARRHEA ABD PAIN - Nausea with vomiting, unspecified 04/15/2020 23:22 [facility] TYPE: Emergency COMPLAINT: - ANKLE INJURY DIAGNOSES: - Allergy status to other drugs, medicaments and biological substances - Pain in left ankle and joints of left foot - Pure hypercholesterolemia, unspecified - Other shelter (current) drug therapy - Fall on same [...] Allergy status to narcotic agent - 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 - Essential (primary) hypertension 01/20/2020 12:56 [facility] [place] TYPE: Emergency COMPLAINT: - VOMITING, DIARRHEA DIAGNOSES: - 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 - Nausea - Allergy status to penicillin - Diarrhea, unspecified - Pure hypercholesterolemia, unspecified - Unspecified abdominal pain - Essential (primary) hypertension 01/05/2020 22:34 [facility] TYPE: Emergency COMPLAINT: - BLEEDING/ABDOMINAL PAIN DIAGNOSES: - 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
[2020-12-28] MEDS ORDERED: DILTIAZEM ER360 MG PO (18:46)
--- NOTE | 2020-12-30 13:33 | EKG ---
[facility] [address] [place] [address] Signed Atrial-paced rhythm with prolonged AV conduction Abnormal ECG When compared with ECG of 06-AUG-2020 21:40, No significant change was found Confirmed by NATALEE CEJA MD ([id number]) on 12/30/2020 1:32:57 PM Electronically Signed By: NATALEE CEJA MD 12/30/20 1333 PATIENT NAME: MONA GAYBrea SMITH Electrocardiogram DATE OF : 58 PHYSICIAN: NATALEE CEJA MD REPORT #: [id number] REPORT IS CONFIDENTIAL AND NOT TO BE RELEASED WITHOUT AUTHORIZATION
== END 2020-12-28 20:17 | disposition home or self-care (01) ==
LOC: ED 18:31
DX: I10 Essential (primary) hypertension (principal); E78.00 Pure hypercholesterolemia, unspecified; F17.200 Nicotine dependence, unspecified, uncomplicated; Z88.0 Allergy status to penicillin; Z88.5 Allergy status to narcotic agent; Z88.1 Allergy status to other antibiotic agents; Z88.8 Allergy status to other drugs, medicaments and biological substances; Z79.899 Other long term (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; Z79.82 Long term (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
CPT/HCPCS: 80053; 83735; 84484; 85025; 93005; 93010; 99285-25; J7030

== ENCOUNTER 2021-01-22 10:43 | Emergency (ER) | payer MEDICARE ==
[~2021-01-22] VITALS: Ht 193 cm; Wt 118.1 kg
[~2021-01-22 10:43] MED LIST changes: +DILTIAZEM ER360 MG PO
--- OUTSIDE RECORDS SUMMARY | 2021-01-22 10:46 | XMS ---
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 Elopement at [facility] 04/15/2020 20:03 - Other Details: PATIENT LWBS. CRITERIA MET - Group Notification - 6 ED Visits in 6 Months - [facility] - Has Care Guidelines - PDMP - [facility] - 2 Visits in 30 Days CARE PROVIDERS TOO MORALES Specialist 09/05/2019-Current MD Cr PHONE: Unknown SARAH PEOPLES Internal Medicine Current PHONE: [phone] Joseline has no Care Guidelines for this patient. 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 - CHW PROVIDED DR COSTA WITH DR BUTT CONTACT INFORMATION-THEY HAVE ACCESS TO [facility] RECORDS AND WERE ABLE TO PULL UP PATIENT PAST VISIT WITH DR BUTT. - GOING FORWARD DR COSTA WOULD LIKE ED RECORDS SENT TO THE OFFICE [phone]. THEY WILL WORK WITH DR BUTT AND COMMUNICATE ON PATIENT CHRONIC CONDITION. 01/01/2020 [facility] Care Recommendation: - USE EXTREME CAUTION IN GIVING NARCOTICS. - Avoid Discharge Narcotic prescriptions if at all possible. Physician discretion. 12/06/2019 [facility] -SPOKE WITH PATIENT REGARDING CHRONIC CARE AND ED USE -PATIENT HAS GASTROENTEROLOGY APPT WITH DR COSTA ([facility]) 12/18/19 0830 - STATES HE HAS A RIDE -PATIENT HAS CARDIOLOGY APPT WITH DR TURNER ([facility]) 01/01/20 0730 -CONACT INFO GIVEN FOR CASE MANAGEMENT FOR HELP WITH RESOURCES Rhea VISIT COUNT (12 MO.) 3 [facility] 1 [facility] 13 [facility]. TOTAL 17 NOTE: Visits indicate total known visits. ED/UCC VISIT TRACKING (12 MO.) 01/22/2021 10:44 [facility] [place] TYPE: Emergency COMPLAINT: - L HAND LACERATION INJURY 12/28/2020 18:32 [facility] [place] TYPE: Emergency COMPLAINT: - BLOOD PRESSURE PROBLEM DIAGNOSES: - Nicotine dependence, unspecified, uncomplicated - [facility] (current) use of aspirin - Essential (primary) hypertension - Allergy status to other drugs, medicaments and biological substances - Pure hypercholesterolemia, unspecified - Allergy status to penicillin - Allergy status to narcotic agent - Shortness of breath - Allergy status to other antibiotic agents - Other senior living (current) drug therapy 12/17/2020 11:32 [facility] [place] TYPE: Emergency DIAGNOSES: - Palpitations - Ventricular premature depolarization - Chest Pain - Generalized anxiety disorder - Shortness of Breath - chest pain/ d/ sob / heart rate 11/13/2020 09:58 [facility] TYPE: Emergency COMPLAINT: - FALL, ABD PAIN DIAGNOSES: - Essential (primary) hypertension - Contusion of abdominal wall, initial encounter - 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 - Pure [...] other drugs, medicaments and biological substances - 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 10/04/2020 13:20 [facility] [place] TYPE: Emergency COMPLAINT: - URINATING BLOOD DIAGNOSES: - Allergy status to penicillin - Nicotine dependence, unspecified, uncomplicated - 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 - Hematuria, unspecified - Other senior living (current) drug therapy [...] uncomplicated - Essential (primary) hypertension - 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 08/06/2020 21:29 [facility] TYPE: Emergency COMPLAINT: - BLOOD PRESSURE ISSUE/DIZZINESS DIAGNOSES: - Pure hypercholesterolemia, unspecified - Syncope and collapse - Allergy status to penicillin - Allergy status to narcotic agent - Other senior living (current) drug therapy - Shortness of breath - Allergy status to other drugs, medicaments and biological substances - Essential (primary) hypertension - 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 - Allergy [...] seen by health care provider 05/03/2020 13:19 [facility] [place] TYPE: Emergency DIAGNOSES: - Unspecified injury of right shoulder and upper arm, initial encounter - Unspecified injury of right hip, initial encounter - fall, shoulder pain,back pain 04/28/2020 15:37 [facility] [place] TYPE: Emergency DIAGNOSES: - Epigastric pain - VOMITING DIARRHEA ABD PAIN - Nausea with vomiting, unspecified 04/15/2020 23:22 [facility] [place] TYPE: Emergency COMPLAINT: - ANKLE INJURY DIAGNOSES: - Allergy status to other drugs, medicaments and biological substances - Pain in left ankle and joints of left foot - Pure hypercholesterolemia, unspecified - Other senior living (current) drug therapy - Fall on same [...] Allergy status to narcotic agent - Other senior living (current) drug therapy - Essential (primary) hypertension INPATIENT VISIT TRACKING (12 MO.) No inpatient visits to display in this time frame [id number]
[2021-01-23] MEDS ORDERED: XANAX2 MG PO (09:13)
[2021-01-23] MEDS ORDERED: RESTORIL15 MG PO (10:35)
[2021-01-23] MEDS ORDERED: CLINDAMYCIN HC300 MG PO (10:35)
== END 2021-01-22 11:32 | disposition home or self-care (01) ==
LOC: ED 10:43
PROC: 0HQGXZZ Repair Left Hand Skin, External Approach (ICD-10-PCS; principal; 2021-01-22)
DX: S61.211A Laceration without foreign body of left index finger without damage to nail, initial encounter (principal); W26.0XXA Contact with knife, initial encounter; I10 Essential (primary) hypertension; E78.00 Pure hypercholesterolemia, unspecified; Z87.891 Personal history of nicotine dependence; Z88.0 Allergy status to penicillin; Z88.5 Allergy status to narcotic agent; Z88.8 Allergy status to other drugs, medicaments and biological substances; Z79.899 Other long term (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; Z79.82 Long term (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
CPT/HCPCS: 12002; 90471; 90715; 99282-25

== ENCOUNTER 2021-01-23 08:56 | Emergency (ER) | payer MEDICARE ==
--- OUTSIDE RECORDS SUMMARY | 2021-01-23 08:58 | XMS ---
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 Elopement at [facility] 04/15/2020 20:03 - Other Details: PATIENT LWBS. CRITERIA MET - Group Notification - 6 ED Visits in 6 Months - [facility] - Has Care Guidelines - PDMP - [facility] - 2 Visits in 30 Days CARE PROVIDERS TOO MORALES Specialist 09/05/2019-Current MD Cr PHONE: Unknown SARAH PEOPLES Internal Medicine Current PHONE: [phone] Joseline has no Care Guidelines for this patient. 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 - CHW PROVIDED DR COSTA WITH DR BUTT CONTACT INFORMATION-THEY HAVE ACCESS TO [facility] RECORDS AND WERE ABLE TO PULL UP PATIENT PAST VISIT WITH DR BUTT. - GOING FORWARD DR COSTA WOULD LIKE ED RECORDS SENT TO THE OFFICE [phone]. THEY WILL WORK WITH DR BUTT AND COMMUNICATE ON PATIENT CHRONIC CONDITION. 01/01/2020 [facility] Care Recommendation: - USE EXTREME CAUTION IN GIVING NARCOTICS. - Avoid Discharge Narcotic prescriptions if at all possible. Physician discretion. 12/06/2019 [facility] -SPOKE WITH PATIENT REGARDING CHRONIC CARE AND ED USE -PATIENT HAS GASTROENTEROLOGY APPT WITH DR COSTA ([facility]) 12/18/19 0830 - STATES HE HAS A RIDE -PATIENT HAS CARDIOLOGY APPT WITH DR TURNER ([facility]) 01/01/20 0730 -CONACT INFO GIVEN FOR CASE MANAGEMENT FOR HELP WITH RESOURCES Rhea VISIT COUNT (12 MO.) 3 [facility] 1 [facility] 14 [facility]. TOTAL 18 NOTE: Visits indicate total known visits. ED/UCC VISIT TRACKING (12 MO.) 01/23/2021 08:56 [facility] [place] TYPE: Emergency COMPLAINT: - BLOOD PRESSURE PROBLEM, NAUSEA 01/22/2021 10:44 [facility] [place] TYPE: Emergency COMPLAINT: - L HAND LACERATION INJURY 12/28/2020 18:32 [facility] [place] TYPE: Emergency COMPLAINT: - BLOOD PRESSURE PROBLEM DIAGNOSES: - Nicotine dependence, unspecified, uncomplicated - 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 representative (current) use of aspirin - Essential (primary) hypertension - Allergy status to other drugs, medicaments and biological substances - Pure hypercholesterolemia, unspecified - Allergy status to penicillin - Allergy status to narcotic agent - Shortness of breath - Allergy status to other antibiotic agents - Other mcc (current) drug therapy 12/17/2020 11:32 [facility] TYPE: Emergency DIAGNOSES: - Palpitations - Ventricular premature depolarization - Chest Pain - Generalized anxiety disorder - Shortness of Breath - chest pain/ d/ sob / heart rate 11/13/2020 09:58 [facility] [place] TYPE: Emergency COMPLAINT: - FALL, ABD PAIN DIAGNOSES: - Essential (primary) hypertension - Contusion of abdominal wall, initial encounter - Other mcc (current) drug therapy - Pure hypercholesterolemia, unspecified [...] other drugs, medicaments and biological substances - care home (current) use of aspirin 10/04/2020 13:20 [facility] TYPE: Emergency COMPLAINT: - URINATING BLOOD DIAGNOSES: - Allergy status to penicillin - Nicotine dependence, unspecified, uncomplicated - care home (current) use of aspirin - Hematuria, unspecified - Other 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 representative (current) drug therapy - Allergy status to other antibiotic agents - Allergy status to narcotic agent - Allergy status to other drugs, medicaments and biological substances - Essential (primary) hypertension - Allergy status to other antibiotic agents - Allergy status to other drugs, medicaments and biological substances - Allergy status to narcotic agent - Pure hypercholesterolemia, unspecified 09/30/2020 06:23 [facility] [place] TYPE: Emergency COMPLAINT: - FLANK PAIN/POSS KIDNEY STONE DIAGNOSES: - Allergy status to other antibiotic agents - Hydronephrosis with renal and ureteral calculous obstruction - 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 representative (current) use of aspirin - Nicotine dependence, unspecified, uncomplicated - Essential (primary) hypertension - Other 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 representative (current) drug therapy - Allergy status to narcotic agent - Allergy status to penicillin - Allergy status to other drugs, medicaments and biological substances - Allergy status to narcotic agent - Allergy status to other drugs, medicaments and biological substances - Pure hypercholesterolemia, unspecified - Allergy status to other antibiotic agents - Unspecified abdominal pain 09/13/2020 21:00 [facility] [place] TYPE: Emergency DIAGNOSES: - Myalgia, other site - FALL 08/23/2020 19:42 [facility] TYPE: Emergency COMPLAINT: - DIARRHEA/NAUSEA DIAGNOSES: - Allergy status to other drugs, medicaments and biological substances - Irritable bowel syndrome with diarrhea - Allergy status to narcotic agent - Allergy status to penicillin - Diarrhea, unspecified - Other 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 representative (current) drug therapy - Allergy status to other antibiotic agents - Pure hypercholesterolemia, unspecified - Nicotine dependence, unspecified, uncomplicated - Allergy status to narcotic agent - Allergy status to other antibiotic agents - Allergy status to other drugs, medicaments and biological substances - Essential (primary) hypertension - 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 representative (current) use of aspirin 08/06/2020 21:29 [facility] TYPE: Emergency COMPLAINT: - BLOOD PRESSURE ISSUE/DIZZINESS DIAGNOSES: - Pure hypercholesterolemia, unspecified - Syncope and collapse - Allergy status to penicillin - Allergy status to narcotic agent - Other mcc (current) drug therapy - Shortness of breath - Allergy status to other drugs, medicaments and biological substances - Essential (primary) hypertension - care home (current) use of aspirin - Nicotine dependence, unspecified, uncomplicated 06/15/2020 21:47 [facility] TYPE: Emergency COMPLAINT: - CHEST PAIN DIAGNOSES: - Other mcc (current) drug therapy - Essential (primary) hypertension - Allergy status to narcotic agent - Allergy status to penicillin - Allergy status to other antibiotic agents - Allergy status to other drugs, medicaments and biological substances - Chest pain, unspecified - 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 representative (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 06/07/2020 21:29 [facility] TYPE: Emergency COMPLAINT: - LEFT LEG PAIN/ NON INJURY DIAGNOSES: - Allergy status to penicillin - care home (current) use of aspirin - Allergy status to other antibiotic agents - Essential (primary) hypertension - Other fracture of upper and lower end of left fibula, subsequent encounter for closed fracture with routine healing - Other 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 representative (current) drug therapy - Allergy status to [...] seen by health care provider 05/03/2020 13:19 [facility] [place] TYPE: Emergency DIAGNOSES: - Unspecified injury of right shoulder and upper arm, initial encounter - Unspecified injury of right hip, initial encounter - fall, shoulder pain,back pain 04/28/2020 15:37 [facility] [place] TYPE: Emergency DIAGNOSES: - Epigastric pain - VOMITING DIARRHEA ABD PAIN - Nausea with vomiting, unspecified 04/15/2020 23:22 [facility] TYPE: Emergency COMPLAINT: - ANKLE INJURY DIAGNOSES: - Allergy status to other drugs, medicaments and biological substances - Pain in left ankle and joints of left foot - Pure hypercholesterolemia, unspecified - Other 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 representative (current) drug therapy - Fall on same [...] Allergy status to narcotic agent - Other 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 representative (current) drug therapy - Essential (primary) hypertension INPATIENT VISIT TRACKING (12 MO.) No inpatient visits to display in this time frame [email or web address]
[2021-01-23] MEDS ORDERED: XANAX2 MG PO (09:13)
[2021-01-23] MEDS ORDERED: RESTORIL15 MG PO (10:35)
[2021-01-23] MEDS ORDERED: CLINDAMYCIN HC300 MG PO (10:35)
== END 2021-01-23 10:50 | disposition home or self-care (01) ==
LOC: ED 08:56
DX: F41.9 Anxiety disorder, unspecified (principal); G47.00 Insomnia, unspecified; S61.211D Laceration without foreign body of left index finger without damage to nail, subsequent encounter; W26.0XXD Contact with knife, subsequent encounter; I10 Essential (primary) hypertension; E78.00 Pure hypercholesterolemia, unspecified; Z87.891 Personal history of nicotine dependence; Z88.0 Allergy status to penicillin; Z88.8 Allergy status to other drugs, medicaments and biological substances; Z88.5 Allergy status to narcotic agent; Z88.1 Allergy status to other antibiotic agents; Z79.899 Other long term (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; Z79.82 Long term (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
CPT/HCPCS: 99283

== ENCOUNTER 2021-02-11 19:52 | Emergency (ER) | payer MEDICARE ==
[~2021-02-11] VITALS: Ht 193 cm; Wt 118.1 kg
[~2021-02-11 19:52] MED LIST changes: +CLINDAMYCIN HC300 MG PO; +RESTORIL15 MG PO; +XANAX2 MG PO
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
[2021-02-11] MEDS ORDERED: SERTRALINE HCL100 MG PO (20:23)
== END 2021-02-11 23:15 | disposition home or self-care (01) ==
LOC: ED 19:52
DX: S06.9X9A Unspecified intracranial injury with loss of consciousness of unspecified duration, initial encounter (principal); W17.89XA Other fall from one level to another, initial encounter; I10 Essential (primary) hypertension; E78.00 Pure hypercholesterolemia, unspecified; Z87.891 Personal history of nicotine dependence; Z88.0 Allergy status to penicillin; Z88.5 Allergy status to narcotic agent; Z88.8 Allergy status to other drugs, medicaments and biological substances; Z88.1 Allergy status to other antibiotic agents; Z79.899 Other long term (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; Z79.82 Long term (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
CPT/HCPCS: 70450; 72125; 99284-25

== ENCOUNTER 2021-04-11 15:18 | Emergency (ER) | payer MEDICARE ==
[~2021-04-11] VITALS: Ht 193 cm; Wt 118.1 kg
--- OUTSIDE RECORDS SUMMARY | 2021-04-11 15:22 | XMS ---
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 Elopement at [facility] 06/03/2020 13:29 - Other Details: PATIENT LWBS. Elopement at [facility] 04/15/2020 20:03 - Other Details: PATIENT LWBS. CRITERIA MET - Group Notification - 6 ED Visits in 6 Months - [facility] - Has Care Guidelines - PDMP - [facility] - 2 Visits in 30 Days CARE PROVIDERS TOO MORALES Specialist 09/05/2019-Current MD Cr PHONE: Unknown SARAH PEOPLES Internal Medicine Current PHONE: [phone] Joseline has no Care Guidelines for this patient. 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 - [facility] PROVIDED DR COSTA WITH DR BUTT CONTACT INFORMATION-THEY HAVE ACCESS TO [facility] RECORDS AND WERE ABLE TO PULL UP PATIENT PAST VISIT WITH DR BUTT. - GOING FORWARD DR COSTA WOULD LIKE ED RECORDS SENT TO THE OFFICE [phone]. THEY WILL WORK WITH DR BUTT AND COMMUNICATE ON PATIENT CHRONIC CONDITION. 01/01/2020 [facility] Care Recommendation: - USE EXTREME CAUTION IN GIVING NARCOTICS. - Avoid Discharge Narcotic prescriptions if at all possible. Physician discretion. 12/06/2019 [facility] -SPOKE WITH PATIENT REGARDING CHRONIC CARE AND ED USE -PATIENT HAS GASTROENTEROLOGY APPT WITH DR COSTA ([facility]) 12/18/19 0830 - STATES HE HAS A RIDE -PATIENT HAS CARDIOLOGY APPT WITH DR TURNER ([facility]) 01/01/20 0730 -CONACT INFO GIVEN FOR CASE MANAGEMENT FOR HELP WITH RESOURCES E.Brea. VISIT COUNT ([address] 3 [facility] 1 [facility] 17 [facility] TOTAL 21 NOTE: Visits indicate total known visits. ED/UCC VISIT TRACKING (12 MO.) 04/11/2021 15:19 [facility] [place] TYPE: Emergency COMPLAINT: - DIARRHEA, ABD PAIN 03/22/2021 18:18 [facility] [place] TYPE: Emergency COMPLAINT: - SHORTNESS OF BREATH 2021 19:52 [facility] [place] TYPE: Emergency COMPLAINT: - FALL, HEAD INJURY DIAGNOSES: - Personal history of nicotine dependence - Allergy status to other antibiotic agents - clinical services manager (current) use of aspirin - Pure hypercholesterolemia, unspecified - Allergy status to penicillin - Allergy status to narcotic agent - Allergy status to other drugs, medicaments and biological substances - Headache, unspecified - Unspecified intracranial injury with loss of consciousness of unspecified duration, initial encounter - Essential (primary) hypertension - Other fall from one level to another, initial encounter - Other sap grc security (current) drug therapy 01/23/2021 08:56 [facility] [place] TYPE: Emergency COMPLAINT: - BLOOD PRESSURE PROBLEM, NAUSEA DIAGNOSES: - Other sap grc security (current) drug therapy - Personal history of nicotine dependence - Allergy status to other antibiotic agents - Allergy status to narcotic agent - Allergy status to other drugs, medicaments and biological substances - half-way (current) use of aspirin - Insomnia, unspecified [...] initial encounter - Essential (primary) hypertension - clinical services manager (current) use of aspirin - Other snf (current) drug therapy 12/28/2020 18:32 [facility] [place] TYPE: Emergency COMPLAINT: - BLOOD PRESSURE PROBLEM DIAGNOSES: - Nicotine dependence, unspecified, uncomplicated - half-way (current) use of aspirin - Essential (primary) hypertension - Allergy status to other drugs, medicaments and biological substances - Pure hypercholesterolemia, unspecified - Allergy status to penicillin - Allergy status to narcotic agent - Shortness of breath - Allergy status to other antibiotic agents - Other sap grc security (current) drug therapy 12/17/2020 11:32 [facility] [place] TYPE: Emergency DIAGNOSES: - Palpitations - Ventricular premature depolarization - Chest Pain - Generalized anxiety disorder - Shortness of Breath - chest pain/ d/ sob / heart rate 11/13/2020 09:58 [facility] [place] TYPE: Emergency COMPLAINT: - FALL, ABD PAIN DIAGNOSES: - Essential (primary) hypertension - Contusion of abdominal wall, initial encounter - Other sap grc security (current) drug therapy - Pure hypercholesterolemia, unspecified [...] other drugs, medicaments and biological substances - clinical services manager (current) use of aspirin 10/04/2020 13:20 [facility] [place] TYPE: Emergency COMPLAINT: - URINATING BLOOD DIAGNOSES: - Allergy status to penicillin - Nicotine dependence, unspecified, uncomplicated - clinical services manager (current) use of aspirin - Hematuria, unspecified - Other snf (current) drug therapy - Allergy status to [...] uncomplicated - Essential (primary) hypertension - Other snf (current) drug therapy - Allergy status to narcotic agent - Allergy status to penicillin - Allergy status to other drugs, medicaments and biological substances - Allergy status to narcotic agent - Allergy status to other drugs, medicaments and biological substances - Pure hypercholesterolemia, unspecified - Allergy status to other antibiotic agents - Unspecified abdominal pain 09/13/2020 21:00 [facility] [place] TYPE: Emergency DIAGNOSES: - Myalgia, other site - FALL 08/23/2020 19:42 [facility] [place] TYPE: Emergency COMPLAINT: - DIARRHEA/NAUSEA DIAGNOSES: - Allergy status to other drugs, medicaments and biological substances - Irritable bowel syndrome with diarrhea - Allergy status to narcotic agent - Allergy status to penicillin - Diarrhea, unspecified - Other sap grc security (current) drug therapy - Allergy status to other antibiotic agents - Pure hypercholesterolemia, unspecified - Nicotine dependence, unspecified, uncomplicated - Allergy status to narcotic agent - Allergy status to other antibiotic agents - Allergy status to other drugs, medicaments and biological substances - Essential (primary) hypertension - half-way (current) use of aspirin 08/06/2020 21:29 [facility] [place] TYPE: Emergency COMPLAINT: - BLOOD PRESSURE ISSUE/DIZZINESS DIAGNOSES: - Pure hypercholesterolemia, unspecified - Syncope and collapse - Allergy status to penicillin - Allergy status to narcotic agent - Other snf (current) drug therapy - Shortness of breath - Allergy status to other drugs, medicaments and biological substances - Essential (primary) hypertension - half-way (current) use of aspirin - Nicotine dependence, unspecified, uncomplicated 06/15/2020 21:47 [facility] [place] TYPE: Emergency COMPLAINT: - CHEST PAIN DIAGNOSES: - Other snf (current) drug therapy - Essential (primary) hypertension - Allergy status to narcotic agent - Allergy status to penicillin - Allergy status to other antibiotic agents - Allergy status to other drugs, medicaments and biological substances - Chest pain, unspecified - clinical services manager (current) use of aspirin 06/07/2020 21:29 [facility] [place] TYPE: Emergency COMPLAINT: - LEFT LEG PAIN/ NON INJURY DIAGNOSES: - Allergy status to penicillin - half-way (current) use of aspirin - Allergy status to other antibiotic agents - Essential (primary) hypertension - Other fracture of upper and lower end of left fibula, subsequent encounter for closed fracture with routine healing - Other sap grc security (current) drug therapy - Allergy status to [...] seen by health care provider 05/03/2020 13:19 [facility] [place] TYPE: Emergency DIAGNOSES: - Unspecified injury of right shoulder and upper arm, initial encounter - Unspecified injury of right hip, initial encounter - fall, shoulder pain,back pain 04/28/2020 15:37 [facility] [place] TYPE: Emergency DIAGNOSES: - Epigastric pain - VOMITING DIARRHEA ABD PAIN - Nausea with vomiting, unspecified 04/15/2020 23:22 [facility] [place] TYPE: Emergency COMPLAINT: - ANKLE INJURY DIAGNOSES: - Allergy status to other drugs, medicaments and biological substances - Pain in left ankle and joints of left foot - Pure hypercholesterolemia, unspecified - Other snf (current) drug therapy - Fall on same level, unspecified, initial encounter - Essential (primary) hypertension - Allergy status to narcotic agent - Displaced fracture of lateral malleolus of left fibula, initial encounter for closed fracture - Allergy status to penicillin 04/15/2020 20:03 [facility] [place] TYPE: Emergency COMPLAINT: - L ANKLE PAIN/INJ DIAGNOSES: - Procedure and treatment not carried out due to patient leaving prior to being seen by health care provider - Procedure and treatment not carried out due to patient leaving prior to being seen by health care provider Plus 1 More Visit INPATIENT VISIT TRACKING (12 MO.) No inpatient visits to display in this time frame [email or web address]
[2021-04-11] MEDS ORDERED: POTASSIUM CHLO10 ME2 PO (15:33)
[2021-04-11] MEDS ORDERED: LASIX40 MG PO (15:33)
== END 2021-04-11 17:44 | disposition home or self-care (01) ==
LOC: ED 15:18
DX: R10.9 Unspecified abdominal pain (principal); R19.7 Diarrhea, unspecified; I10 Essential (primary) hypertension; E78.00 Pure hypercholesterolemia, unspecified; Z88.0 Allergy status to penicillin; Z88.8 Allergy status to other drugs, medicaments and biological substances; Z88.1 Allergy status to other antibiotic agents; Z88.5 Allergy status to narcotic agent; Z79.899 Other long term (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; Z79.82 Long term (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
CPT/HCPCS: 80053; 83690; 85025; 99284

== ENCOUNTER 2021-04-28 12:27 | Emergency (ER) | payer MEDICARE ==
[~2021-04-28] VITALS: Ht 193 cm; Wt 118.1 kg
[~2021-04-28 12:27] MED LIST changes: +LASIX40 MG PO; +POTASSIUM CHLO10 ME2 PO
--- OUTSIDE RECORDS SUMMARY | 2021-04-28 12:30 | XMS ---
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 03/22/2021 18:18 - Other Details: PATIENT LWBS. Elopement at [facility] 06/03/2020 13:29 - Other Details: PATIENT LWBS. Elopement at [facility] 04/15/2020 20:03 - Other Details: PATIENT LWBS. CRITERIA MET - Group Notification - 6 ED Visits in 6 Months - [facility] - Has Care Guidelines - [facility] - 2 Visits in 30 Days CARE PROVIDERS TOO MORALES Specialist 09/05/2019-Current MD Cr PHONE: Unknown SARAH PEOPLES Internal Medicine Current PHONE: [phone] Joseline has no Care Guidelines for this patient. Care History Medical/Surgical 01/02/2020 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 - W PROVIDED DR COSTA WITH DR BUTT CONTACT INFORMATION-THEY HAVE ACCESS TO [facility] RECORDS AND WERE ABLE TO PULL UP PATIENT PAST VISIT WITH DR BUTT. - GOING FORWARD DR COSTA WOULD LIKE ED RECORDS SENT TO THE OFFICE [phone]. THEY WILL WORK WITH DR BUTT AND COMMUNICATE ON PATIENT CHRONIC CONDITION. 01/01/2020 [facility] Care Recommendation: - USE EXTREME CAUTION IN GIVING NARCOTICS. - Avoid Discharge Narcotic prescriptions if at all possible. Physician discretion. 12/06/2019 [facility] -SPOKE WITH PATIENT REGARDING CHRONIC CARE AND ED USE -PATIENT HAS GASTROENTEROLOGY APPT WITH DR COSTA ([facility]) 12/18/19 08 - STATES HE HAS A RIDE -PATIENT HAS CARDIOLOGY APPT WITH DR TURNER ([facility]) 01/01/20 0730 -CONACT INFO GIVEN FOR CASE MANAGEMENT FOR HELP WITH RESOURCES E.Brea. VISIT COUNT (12 MO.) 3 [facility] 1 [facility] 15 [facility] TOTAL 19 NOTE: Visits indicate total known visits. 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 - Essential (primary) hypertension - Allergy status to other drugs, medicaments and biological substances - Allergy status to other antibiotic agents - Pure hypercholesterolemia, unspecified - Allergy status to penicillin - Allergy status to narcotic agent - Unspecified abdominal pain - Other 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 termite (current) drug therapy - Diarrhea, unspecified 03/22/2021 18:18 [facility] [place] TYPE: Emergency COMPLAINT: - SHORTNESS OF BREATH 2021 19:52 [facility] [place] TYPE: Emergency COMPLAINT: - FALL, HEAD INJURY DIAGNOSES: - Personal history of nicotine dependence - Allergy status to other antibiotic agents - [facility] (current) use of aspirin - Pure hypercholesterolemia, unspecified - Allergy status to penicillin - Allergy status to narcotic agent - Allergy status to other drugs, medicaments and biological substances - Headache, unspecified - Unspecified intracranial injury with loss of consciousness of unspecified duration, initial encounter - Essential (primary) hypertension - Other fall from one level to another, initial encounter - Other 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 termite (current) drug therapy 01/23/2021 08:56 [facility] [place] TYPE: Emergency COMPLAINT: - BLOOD PRESSURE PROBLEM, NAUSEA DIAGNOSES: - Other 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 termite (current) drug therapy - Personal history of nicotine dependence - Allergy status to other antibiotic agents - Allergy status to narcotic agent - Allergy status to other drugs, medicaments and biological substances - [facility] (current) use of aspirin - Insomnia, unspecified [...] encounter - Essential (primary) hypertension - 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 - Other 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 termite (current) drug therapy 12/28/2020 18:32 [facility] [place] TYPE: Emergency COMPLAINT: - BLOOD PRESSURE PROBLEM DIAGNOSES: - Nicotine dependence, unspecified, uncomplicated - 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 - Essential (primary) hypertension - Allergy status to other drugs, medicaments and biological substances - Pure hypercholesterolemia, unspecified - Allergy status to penicillin - Allergy status to narcotic agent - Shortness of breath - Allergy status to other antibiotic agents - Other 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 termite (current) drug therapy 12/17/2020 11:32 [facility] [place] TYPE: Emergency DIAGNOSES: - Palpitations - Ventricular premature depolarization - Chest Pain - Generalized anxiety disorder - Shortness of Breath - chest pain/ d/ sob / heart rate 11/13/2020 09:58 [facility] [place] TYPE: Emergency COMPLAINT: - FALL, ABD PAIN DIAGNOSES: - Essential (primary) hypertension - Contusion of abdominal wall, initial encounter - Other 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 termite (current) drug therapy - Pure hypercholesterolemia, unspecified [...] other drugs, medicaments and biological substances - [facility] (current) use of aspirin 10/04/2020 13:20 [facility] [place] TYPE: Emergency COMPLAINT: - URINATING BLOOD DIAGNOSES: - Allergy status to penicillin - Nicotine dependence, unspecified, uncomplicated - 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 - Hematuria, unspecified - Other halfway (current) drug therapy - Allergy status to [...] with renal and ureteral calculous obstruction - [facility] (current) use of aspirin - Nicotine dependence, unspecified, uncomplicated - Essential (primary) hypertension - Other halfway (current) drug therapy - Allergy status to narcotic agent - Allergy status to penicillin - Allergy status to other drugs, medicaments and biological substances - Allergy status to narcotic agent - Allergy status to other drugs, medicaments and biological substances - Pure hypercholesterolemia, unspecified - Allergy status to other antibiotic agents - Unspecified abdominal pain 09/13/2020 21:00 [facility] [place] TYPE: Emergency DIAGNOSES: - Myalgia, other site - FALL 08/23/2020 19:[address] [facility] [place] TYPE: Emergency COMPLAINT: - DIARRHEA/NAUSEA DIAGNOSES: - Allergy status to other drugs, medicaments and biological substances - Irritable bowel syndrome with diarrhea - Allergy status to narcotic agent - Allergy status to penicillin - Diarrhea, unspecified - Other 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 termite (current) drug therapy - Allergy status to other antibiotic agents - Pure hypercholesterolemia, unspecified - Nicotine dependence, unspecified, uncomplicated - Allergy status to narcotic agent - Allergy status to other antibiotic agents - Allergy status to other drugs, medicaments and biological substances - Essential (primary) hypertension - [facility] (current) use of aspirin 08/06/2020 21:29 [facility] [place] TYPE: Emergency COMPLAINT: - BLOOD PRESSURE ISSUE/DIZZINESS DIAGNOSES: - Pure hypercholesterolemia, unspecified - Syncope and collapse - Allergy status to penicillin - Allergy status to narcotic agent - Other 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 termite (current) drug therapy - Shortness of breath - Allergy status to other drugs, medicaments and biological substances - Essential (primary) hypertension - [facility] (current) use of aspirin - Nicotine dependence, unspecified, uncomplicated 06/15/2020 21:47 [facility] [place] TYPE: Emergency COMPLAINT: - CHEST PAIN DIAGNOSES: - Other halfway (current) drug therapy - Essential (primary) hypertension - Allergy status to narcotic agent - Allergy status to penicillin - Allergy status to other antibiotic agents - Allergy status to other drugs, medicaments and biological substances - Chest pain, unspecified - 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 [place] TYPE: Emergency DIAGNOSES: - Unspecified injury of right shoulder and upper arm, initial encounter - Unspecified injury of right hip, initial encounter - fall, shoulder pain,back pain 04/28/2020 15:[address] [facility] [place] TYPE: Emergency DIAGNOSES: - Epigastric pain - VOMITING DIARRHEA ABD PAIN - Nausea with vomiting, unspecified INPATIENT VISIT TRACKING (12 MO.) No inpatient visits to display in this time frame [email or web address]
== END 2021-04-28 15:59 | disposition home or self-care (01) ==
LOC: ED 12:27
DX: R19.7 Diarrhea, unspecified (principal); I10 Essential (primary) hypertension; E78.00 Pure hypercholesterolemia, unspecified; Z87.891 Personal history of nicotine dependence; Z88.0 Allergy status to penicillin; Z88.8 Allergy status to other drugs, medicaments and biological substances; Z88.5 Allergy status to narcotic agent; Z79.899 Other long term (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; Z79.82 Long term (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
CPT/HCPCS: 74018; 80053; 83735; 85025; 96374; 96375; 99284-25; J1885; J2405; J3010; J7030

== ENCOUNTER 2021-05-23 15:26 | Emergency (ER) | payer MEDICARE ==
[~2021-05-23] VITALS: Ht 193 cm; Wt 90.9 kg
--- OUTSIDE RECORDS SUMMARY | 2021-05-23 15:28 | XMS ---
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 Elopement at [facility] 06/03/2020 13:29 - Other Details: PATIENT LWBS. Elopement at [facility] 04/15/2020 20:03 - Other Details: PATIENT LWBS. CRITERIA MET - PDMP - [facility] - 2 Visits in 30 Days - Group Notification - 6 ED Visits in 6 Months - [facility] - Has Care Guidelines CARE PROVIDERS TOO MORALES Specialist 09/05/2019-Current MD Cr PHONE: Unknown SARAH PEOPLES Internal Medicine Current PHONE: [phone] Joseline has no Care Guidelines for this patient. 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 - W PROVIDED DR COSTA WITH DR BUTT CONTACT INFORMATION-THEY HAVE ACCESS TO [facility] RECORDS AND WERE ABLE TO PULL UP PATIENT PAST VISIT WITH DR BUTT. - GOING FORWARD DR COSTA WOULD LIKE ED RECORDS SENT TO THE OFFICE [phone]. THEY WILL WORK WITH DR BUTT AND COMMUNICATE ON PATIENT CHRONIC CONDITION. 01/01/2020 [facility] Care Recommendation: - USE EXTREME CAUTION IN GIVING NARCOTICS. - Avoid Discharge Narcotic prescriptions if at all possible. Physician discretion. 12/06/2019 [facility] -SPOKE WITH PATIENT REGARDING CHRONIC CARE AND ED USE -PATIENT HAS GASTROENTEROLOGY APPT WITH DR COSTA ([facility]) 12/18/19 0830 - STATES HE HAS A RIDE -PATIENT HAS CARDIOLOGY APPT WITH DR TURNER ([facility]) 01/01/20 0730 -CONACT INFO GIVEN FOR CASE MANAGEMENT FOR HELP WITH RESOURCES E.Brea. VISIT COUNT (12 MO.) 1 [facility] 1 [facility] 16 [facility] TOTAL 18 NOTE: Visits indicate total known visits. 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 - Diarrhea, unspecified - Allergy status to other drugs, medicaments and biological substances - Pure hypercholesterolemia, unspecified 04/11/2021 15:19 [facility] [place] TYPE: Emergency COMPLAINT: - DIARRHEA, ABD PAIN DIAGNOSES: - 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 - Essential (primary) hypertension - Allergy status to other drugs, medicaments and biological substances - Allergy status to other antibiotic agents - Pure hypercholesterolemia, unspecified - Allergy status to penicillin - Allergy status to narcotic agent - Unspecified abdominal pain - Other skilled nursing (current) drug therapy - Diarrhea, unspecified 03/22/2021 18:18 [facility] [place] TYPE: Emergency COMPLAINT: - SHORTNESS OF BREATH 2021 19:52 [facility] [place] TYPE: Emergency COMPLAINT: - FALL, HEAD INJURY DIAGNOSES: - Personal history of nicotine dependence - Allergy status to other antibiotic agents - USP (current) use of aspirin - Pure hypercholesterolemia, unspecified - Allergy status to penicillin - Allergy status to narcotic agent - Allergy status to other drugs, medicaments and biological substances - Headache, unspecified - Unspecified intracranial injury with loss of consciousness of unspecified duration, initial encounter - Essential (primary) hypertension - Other fall from one level to another, initial encounter - Other skilled nursing (current) drug therapy 01/23/2021 08:56 [facility] [place] TYPE: Emergency COMPLAINT: - BLOOD PRESSURE PROBLEM, NAUSEA DIAGNOSES: - Other buttermaker continuous churn (current) drug therapy - Personal history of nicotine dependence - Allergy status to other antibiotic agents - Allergy status to narcotic agent - Allergy status to other drugs, medicaments and biological substances - USP (current) use of aspirin - Insomnia, unspecified [...] initial encounter - Essential (primary) hypertension - USP (current) use of aspirin - Other skilled nursing (current) drug therapy 12/28/2020 18:32 [facility] [place] TYPE: Emergency COMPLAINT: - BLOOD PRESSURE PROBLEM DIAGNOSES: - Nicotine dependence, unspecified, uncomplicated - 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 - Essential (primary) hypertension - Allergy status to other drugs, medicaments and biological substances - Pure hypercholesterolemia, unspecified - Allergy status to penicillin - Allergy status to narcotic agent - Shortness of breath - Allergy status to other antibiotic agents - Other skilled nursing (current) drug therapy 12/17/2020 11:32 [facility] [place] TYPE: Emergency DIAGNOSES: - Palpitations - Ventricular premature depolarization - Chest Pain - Generalized anxiety disorder - Shortness of Breath - chest pain/ d/ sob / heart rate 11/13/2020 09:58 [facility] [place] TYPE: Emergency COMPLAINT: - FALL, ABD PAIN DIAGNOSES: - Essential (primary) hypertension - Contusion of abdominal wall, initial encounter - Other skilled nursing (current) drug therapy - Pure hypercholesterolemia, unspecified [...] other drugs, medicaments and biological substances - USP (current) use of aspirin 10/04/2020 13:20 [facility] [place] TYPE: Emergency COMPLAINT: - URINATING BLOOD DIAGNOSES: - Allergy status to penicillin - Nicotine dependence, unspecified, uncomplicated - 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 - Hematuria, unspecified - Other buttermaker continuous churn (current) drug therapy - Allergy status to [...] with renal and ureteral calculous obstruction - 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 - Nicotine dependence, unspecified, uncomplicated - Essential (primary) hypertension - Other skilled nursing (current) drug therapy - Allergy status to narcotic agent - Allergy status to penicillin - Allergy status to other drugs, medicaments and biological substances - Allergy status to narcotic agent - Allergy status to other drugs, medicaments and biological substances - Pure hypercholesterolemia, unspecified - Allergy status to other antibiotic agents - Unspecified abdominal pain 09/13/2020 21:00 [facility] [place] TYPE: Emergency DIAGNOSES: - Myalgia, other site - FALL 08/23/2020 19:42 [facility] [place] TYPE: Emergency COMPLAINT: - DIARRHEA/NAUSEA DIAGNOSES: - Allergy status to other drugs, medicaments and biological substances - Irritable bowel syndrome with diarrhea - Allergy status to narcotic agent - Allergy status to penicillin - Diarrhea, unspecified - Other skilled nursing (current) drug therapy - Allergy status to other antibiotic agents - Pure hypercholesterolemia, unspecified - Nicotine dependence, unspecified, uncomplicated - Allergy status to narcotic agent - Allergy status to other antibiotic agents - Allergy status to other drugs, medicaments and biological substances - Essential (primary) hypertension - USP (current) use of aspirin 08/06/2020 21:29 [facility] [place] TYPE: Emergency COMPLAINT: - BLOOD PRESSURE ISSUE/DIZZINESS DIAGNOSES: - Pure hypercholesterolemia, unspecified - Syncope and collapse - Allergy status to penicillin - Allergy status to narcotic agent - Other buttermaker continuous churn (current) drug therapy - Shortness of breath - Allergy status to other drugs, medicaments and biological substances - Essential (primary) hypertension - USP (current) use of aspirin - Nicotine dependence, unspecified, uncomplicated 06/15/2020 21:47 [facility] [place] TYPE: Emergency COMPLAINT: - CHEST PAIN DIAGNOSES: - Other skilled nursing (current) drug therapy - Essential (primary) hypertension - Allergy status to narcotic agent - Allergy status to penicillin - Allergy status to other antibiotic agents - Allergy status to other drugs, medicaments and biological substances - Chest pain, unspecified - 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 06/07/2020 21:29 [facility] [place] TYPE: Emergency COMPLAINT: - LEFT LEG PAIN/ NON INJURY DIAGNOSES: - Allergy status to penicillin - 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
--- NOTE | 2021-05-23 17:54 | EKG ---
[facility] [address], [place] [address] Signed Atrial-paced rhythm Abnormal ECG When compared with ECG of 28-DEC-2020 18:45, No significant change was found Confirmed by IKER CABEZAS MD ([id number] on 05/23/2021 5:54:04 PM Electronically Signed By: IKER CABEZAS MD 05/23/21 1754 PATIENT NAME: MONA GAYBrea SMITH Electrocardiogram DATE OF : 58 PHYSICIAN: IKER CABEZAS MD REPORT #: [id number] REPORT IS CONFIDENTIAL AND NOT TO BE RELEASED WITHOUT AUTHORIZATION
[2021-05-23] MEDS ORDERED: VENTOLIN HFA18 GM INH (18:06)
== END 2021-05-23 18:22 | disposition home or self-care (01) ==
LOC: ED 15:26
DX: R07.89 Other chest pain (principal); I10 Essential (primary) hypertension; E78.00 Pure hypercholesterolemia, unspecified; Z87.891 Personal history of nicotine dependence; Z88.8 Allergy status to other drugs, medicaments and biological substances; Z88.0 Allergy status to penicillin; Z88.5 Allergy status to narcotic agent; Z79.899 Other long term (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
CPT/HCPCS: 71045; 71275; 80053; 83690; 83735; 84484; 85025; 93005; 93010; 99285-25; J2060; J7030; Q9967

== ENCOUNTER 2021-07-17 13:44 | Emergency (ER) | payer MEDICARE ==
[~2021-07-17] VITALS: Ht 193 cm; Wt 90.9 kg
[~2021-07-17 13:44] MED LIST changes: +VENTOLIN HFA18 GM INH
--- OUTSIDE RECORDS SUMMARY | 2021-07-17 13:52 | XMS ---
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 Elopement at [facility] 06/03/2020 13:29 - Other Details: PATIENT LWBS. Elopement at [facility] 04/15/2020 20:03 - Other Details: PATIENT LWBS. 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 Care History Medical/Surgical 01/02/2020 [facility] - W CONTACTED DR COSTA OFFICE- TRIAL [employer]ICE- [phone] SPOKE WITH GINNY CHILDRESS- PATIENT HAS A COLONOSCOPY SCHEDULED 01/22/2020 ALONG WITH PILL CAMERA PROCEDURE AFTER. - W PROVIDED DR COSTA WITH DR BUTT CONTACT INFORMATION-THEY HAVE ACCESS TO [facility] RECORDS AND WERE ABLE TO PULL UP PATIENT PAST VISIT WITH DR BUTT. - GOING FORWARD DR COSTA WOULD LIKE ED RECORDS SENT TO THE OFFICE [phone]. THEY WILL WORK WITH DR BUTT AND COMMUNICATE ON PATIENT CHRONIC CONDITION. 01/01/2020 [facility] Care Recommendation: - USE EXTREME CAUTION IN GIVING NARCOTICS. - Avoid Discharge Narcotic prescriptions if at all possible. Physician discretion. 12/06/2019 [facility] -SPOKE WITH PATIENT REGARDING CHRONIC CARE AND ED USE -PATIENT HAS GASTROENTEROLOGY APPT WITH DR COSTA ([facility]) 12/18/19 0830 - STATES HE HAS A RIDE -PATIENT HAS CARDIOLOGY APPT WITH DR TURNER ([facility]) 01/01/20 0730 -CONACT INFO GIVEN FOR CASE MANAGEMENT FOR HELP WITH RESOURCES EBibiana VISIT COUNT (12 MO.) [address] 1 [facility] 14 [facility] TOTAL 17 NOTE: Visits indicate total known visits. ED/UCC VISIT TRACKING (12 MO.) 07/17/2021 13:45 [facility] [place] TYPE: Emergency COMPLAINT: - FLU SYMPTOMS [facility]21 14:[facility] COMPLAINT: - Walk In - OTHER CHEST PAIN - SHORTNESS OF BREATH DIAGNOSES: 0. Shortness of breath 1. Other chest pain 4. Unspecified asthma, uncomplicated 5. Anxiety disorder, unspecified 6. Presence of cardiac pacemaker 7. Other end worker (current) drug therapy 8. assisted (current) use of aspirin 05/23/2021 15:26 [facility] [place] TYPE: Emergency COMPLAINT: - SOB DIAGNOSES: - Allergy status to other drugs, medicaments and biological substances - Other chest pain - Essential (primary) hypertension - Allergy status to penicillin - Allergy status to narcotic agent - Pure hypercholesterolemia, unspecified - Other end worker (current) drug therapy - Personal history of nicotine dependence 04/28/2021 12:28 [facility] [place] TYPE: Emergency COMPLAINT: - IBS ISSUE DIAGNOSES: - Other end worker (current) drug therapy - Allergy status to penicillin - Personal history of nicotine dependence - Allergy status to narcotic agent - Essential (primary) hypertension - assisted (current) use of aspirin - Diarrhea, unspecified - Allergy status to other drugs, medicaments and biological substances - Pure hypercholesterolemia, unspecified 04/11/2021 15:19 [facility] [place] TYPE: Emergency COMPLAINT: - DIARRHEA, ABD PAIN DIAGNOSES: - library consultant (current) 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 of 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 - Essential (primary) hypertension - Allergy status to other drugs, medicaments and biological substances - Allergy status to other antibiotic agents - Pure hypercholesterolemia, unspecified - Allergy status to penicillin - Allergy status to narcotic agent - Unspecified abdominal pain - Other longterm (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 - Diarrhea, unspecified 03/22/2021 18:18 [facility] [place] TYPE: Emergency COMPLAINT: - SHORTNESS OF BREATH 2021 19:52 [facility] [place] TYPE: Emergency COMPLAINT: - FALL, HEAD INJURY DIAGNOSES: - Personal history of nicotine dependence - Allergy status to other antibiotic agents - assisted (current) use of aspirin - Pure hypercholesterolemia, unspecified - Allergy status to penicillin - Allergy status to narcotic agent - Allergy status to other drugs, medicaments and biological substances - Headache, unspecified - Unspecified intracranial injury with loss of consciousness of unspecified duration, initial encounter - Essential (primary) hypertension - Other fall from one level to another, initial encounter - Other end worker (current) drug therapy 01/23/2021 08:56 [facility] [place] TYPE: Emergency COMPLAINT: - BLOOD PRESSURE PROBLEM, NAUSEA DIAGNOSES: - Other longterm (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 - Personal history of nicotine dependence - Allergy status to other antibiotic agents - Allergy status to narcotic agent - Allergy status to other drugs, medicaments and biological substances - assisted (current) use of aspirin - Insomnia, unspecified [...] initial encounter - Essential (primary) hypertension - library consultant (current) use of aspirin - Other end worker (current) drug therapy 12/28/2020 18:32 [facility] [place] TYPE: Emergency COMPLAINT: - BLOOD PRESSURE PROBLEM DIAGNOSES: - Nicotine dependence, unspecified, uncomplicated - library consultant (current) use of aspirin - Essential (primary) hypertension - Allergy status to other drugs, medicaments and biological substances - Pure hypercholesterolemia, unspecified - Allergy status to penicillin - Allergy status to narcotic agent - Shortness of breath - Allergy status to other antibiotic agents - Other end worker (current) drug therapy 12/17/2020 11:32 [facility] [place] TYPE: Emergency DIAGNOSES: - Palpitations - Ventricular premature depolarization - Chest Pain - Generalized anxiety disorder - Shortness of Breath - chest pain/ d/ sob / heart rate 11/13/2020 09:58 [facility] [place] TYPE: Emergency COMPLAINT: - FALL, ABD PAIN DIAGNOSES: - Essential (primary) hypertension - Contusion of abdominal wall, initial encounter - Other end worker (current) drug therapy - Pure hypercholesterolemia, unspecified [...] other drugs, medicaments and biological substances - library consultant (current) use of aspirin 10/04/2020 13:20 [facility] [place] TYPE: Emergency COMPLAINT: - URINATING BLOOD DIAGNOSES: - Allergy status to penicillin - Nicotine dependence, unspecified, uncomplicated - library consultant (current) use of aspirin - Hematuria, unspecified - Other end worker (current) drug therapy - Allergy status to [...] with renal and ureteral calculous obstruction - library consultant (current) use of aspirin - Nicotine dependence, unspecified, uncomplicated - Essential (primary) hypertension - Other end worker (current) drug therapy - Allergy status to narcotic agent - Allergy status to penicillin - Allergy status to other drugs, medicaments and biological substances - Allergy status to narcotic agent - Allergy status to other drugs, medicaments and biological substances - Pure hypercholesterolemia, unspecified - Allergy status to other antibiotic agents - Unspecified abdominal pain 09/13/2020 21:00 [facility] [place] TYPE: Emergency DIAGNOSES: - Myalgia, other site - FALL 08/23/2020 19:42 [facility] [place] TYPE: Emergency COMPLAINT: - DIARRHEA/NAUSEA DIAGNOSES: - Allergy status to other drugs, medicaments and biological substances - Irritable bowel syndrome with diarrhea - Allergy status to narcotic agent - Allergy status to penicillin - Diarrhea, unspecified - Other longterm (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 - Allergy status to other antibiotic agents - Pure hypercholesterolemia, unspecified - Nicotine dependence, unspecified, uncomplicated - Allergy status to narcotic agent - Allergy status to other antibiotic agents - Allergy status to other drugs, medicaments and biological substances - Essential (primary) hypertension - library consultant (current) use of aspirin 08/06/2020 21:29 [facility] [place] TYPE: Emergency COMPLAINT: - BLOOD PRESSURE ISSUE/DIZZINESS DIAGNOSES: - Pure hypercholesterolemia, unspecified - Syncope and collapse - Allergy status to penicillin - Allergy status to narcotic agent - Other longterm (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 - Shortness of breath - Allergy status to other drugs, medicaments and biological substances - Essential (primary) hypertension - library consultant (current) use of aspirin - Nicotine dependence, unspecified, uncomplicated INPATIENT VISIT TRACKING (12 MO.) No inpatient visits to display in this time frame [email or web address]
== END 2021-07-17 16:37 | disposition home or self-care (01) ==
LOC: ED 13:44
DX: U07.1 COVID-19 (principal); I10 Essential (primary) hypertension; E78.00 Pure hypercholesterolemia, unspecified; Z87.891 Personal history of nicotine dependence; Z88.0 Allergy status to penicillin; Z88.8 Allergy status to other drugs, medicaments and biological substances; Z88.5 Allergy status to narcotic agent; Z88.1 Allergy status to other antibiotic agents; Z79.899 Other long term (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; Z79.82 Long term (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
CPT/HCPCS: 96374; 99283-25; J1885; M0243; Q0244

== ENCOUNTER 2021-07-21 22:57 | Emergency (ER) | payer MEDICARE ==
[~2021-07-21] VITALS: Ht 193 cm; Wt 90.9 kg
--- OUTSIDE RECORDS SUMMARY | 2021-07-21 23:00 | XMS ---
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 Elopement at [facility] 06/03/2020 13:29 - Other Details: PATIENT LWBS. Elopement at [facility] 04/15/2020 20:03 - Other Details: PATIENT LWBS. CRITERIA MET - - 2 Visits in 30 Days - - 3 Facilities in 90 Days - PDM - 6 ED Visits in 6 Months - Group Notification CARE PROVIDERS TOO MORALES Specialist 09/05/2019-Current MD Cr PHONE: Unknown Joseline has no Care Guidelines for this patient. Care History Medical/Surgical 01/02/2020 [facility] - W CONTACTED DR COSTA OFFICE- GEODETIC SURVEYOR- [phone] SPOKE WITH GINNY CHILDRESS- PATIENT HAS A COLONOSCOPY SCHEDULED 01/22/2020 ALONG WITH PILL CAMERA PROCEDURE AFTER. - W PROVIDED DR COSTA WITH DR BUTT CONTACT INFORMATION-THEY HAVE ACCESS TO [facility] RECORDS AND WERE ABLE TO PULL UP PATIENT PAST VISIT WITH DR BUTT. - GOING FORWARD DR COSTA WOULD LIKE ED RECORDS SENT TO THE OFFICE [phone]. THEY WILL WORK WITH DR BUTT AND COMMUNICATE ON PATIENT CHRONIC CONDITION. 01/01/2020 [facility] Care Recommendation: - USE EXTREME CAUTION IN GIVING NARCOTICS. - Avoid Discharge Narcotic prescriptions if at all possible. Physician discretion. 12/06/2019 [facility] -SPOKE WITH PATIENT REGARDING CHRONIC CARE AND ED USE -PATIENT HAS GASTROENTEROLOGY APPT WITH DR COSTA ([facility]) 12/18/19 0830 - STATES HE HAS A RIDE -PATIENT HAS CARDIOLOGY APPT WITH DR TURNER ([facility]) 01/01/20 0730 -CONACT INFO GIVEN FOR CASE MANAGEMENT FOR HELP WITH RESOURCES EBibiana VISIT COUNT (12 MO.) 2 [facility] 1 [facility] 1 [facility] 15 [facility] TOTAL 19 NOTE: Visits indicate total known visits. ED/UCC VISIT TRACKING (12 MO.) 07/21/2021 22:58 [facility] [place] TYPE: Emergency COMPLAINT: - VOMITING, LUNG PROBLEM 07/18/2021 19:07 [facility] [place] TYPE: Emergency DIAGNOSES: - COVID-19 - +COVID; SOB 07/17/2021 13:45 [facility] [place] TYPE: Emergency COMPLAINT: - FLU SYMPTOMS DIAGNOSES: - snf (current) use of aspirin - COVID-19 - Allergy status to other drugs, medicaments and biological substances - Pure hypercholesterolemia, unspecified - Allergy status to penicillin - Other mcc (current) drug therapy - Personal history of nicotine dependence - Allergy status to narcotic agent - Cough - Allergy status to other antibiotic agents - Essential (primary) hypertension 05/29/2021 14:31 [place] TYPE: Emergency COMPLAINT: - Walk In - OTHER CHEST PAIN - SHORTNESS OF BREATH DIAGNOSES: 0. Shortness of breath 1. Other chest pain 4. Unspecified asthma, uncomplicated 5. Anxiety disorder, unspecified 6. Presence of cardiac pacemaker 7. Other intermediate project manager (current) drug therapy 8. intermediate project manager (current) use of aspirin 05/23/2021 15:26 [facility] [place] TYPE: Emergency COMPLAINT: - SOB DIAGNOSES: - Allergy status to other drugs, medicaments and biological substances - Other chest pain - Essential (primary) hypertension - Allergy status to penicillin - Allergy status to narcotic agent - Pure hypercholesterolemia, unspecified - Other intermediate project manager (current) drug therapy - Personal history of nicotine dependence 04/28/2021 12:28 [facility] [place] TYPE: Emergency COMPLAINT: - IBS ISSUE DIAGNOSES: - Other intermediate project manager (current) drug therapy - Allergy status to penicillin - Personal history of nicotine dependence - Allergy status to narcotic agent - Essential (primary) hypertension - intermediate project manager (current) use of aspirin - Diarrhea, unspecified - Allergy status to other drugs, medicaments and biological substances - Pure hypercholesterolemia, unspecified 04/11/2021 15:[address] [facility] [place] TYPE: Emergency COMPLAINT: - DIARRHEA, ABD PAIN DIAGNOSES: - intermediate project manager (current) use of aspirin - Essential (primary) hypertension - Allergy status to other drugs, medicaments and biological substances - Allergy status to other antibiotic agents - Pure hypercholesterolemia, unspecified - Allergy status to penicillin - Allergy status to narcotic agent - Unspecified abdominal pain - Other intermediate project manager (current) drug therapy - Diarrhea, unspecified 03/22/2021 18:18 [facility] [place] TYPE: Emergency COMPLAINT: - SHORTNESS OF BREATH 2021 19:52 [facility] [place] TYPE: Emergency COMPLAINT: - FALL, HEAD INJURY DIAGNOSES: - Personal history of nicotine dependence - Allergy status to other antibiotic agents - intermediate project manager (current) use of aspirin - Pure hypercholesterolemia, unspecified - Allergy status to penicillin - Allergy status to narcotic agent - Allergy status to other drugs, medicaments and biological substances - Headache, unspecified - Unspecified intracranial injury with loss of consciousness of unspecified duration, initial encounter - Essential (primary) hypertension - Other fall from one level to another, initial encounter - Other intermediate project manager (current) drug therapy 01/23/2021 08:56 [facility] [place] TYPE: Emergency COMPLAINT: - BLOOD PRESSURE PROBLEM, NAUSEA DIAGNOSES: - Other intermediate project manager (current) drug therapy - Personal history of nicotine dependence - Allergy status to other antibiotic agents - Allergy status to narcotic agent - Allergy status to other drugs, medicaments and biological substances - intermediate project manager (current) use of aspirin - Insomnia, unspecified [...] initial encounter - Essential (primary) hypertension - snf (current) use of aspirin - Other mcc (current) drug therapy 12/28/2020 18:32 [facility] [place] TYPE: Emergency COMPLAINT: - BLOOD PRESSURE PROBLEM DIAGNOSES: - Nicotine dependence, unspecified, uncomplicated - snf (current) use of aspirin - Essential (primary) hypertension - Allergy status to other drugs, medicaments and biological substances - Pure hypercholesterolemia, unspecified - Allergy status to penicillin - Allergy status to narcotic agent - Shortness of breath - Allergy status to other antibiotic agents - Other mcc (current) drug therapy [facility] DIAGNOSES: - Palpitations - Ventricular premature depolarization - Chest Pain - Generalized anxiety disorder - Shortness of Breath - chest pain/ d/ sob / heart rate 11/13/2020 09:58 [facility] [place] TYPE: Emergency COMPLAINT: - FALL, ABD PAIN DIAGNOSES: - Essential (primary) hypertension - Contusion of abdominal wall, initial encounter - Other intermediate project manager (current) drug therapy - Pure hypercholesterolemia, unspecified [...] other drugs, medicaments and biological substances - intermediate project manager (current) use of aspirin 10/04/2020 13:20 [facility] [place] TYPE: Emergency COMPLAINT: - URINATING BLOOD DIAGNOSES: - Allergy status to penicillin - Nicotine dependence, unspecified, uncomplicated - intermediate project manager (current) use of aspirin - Hematuria, unspecified - Other mcc (current) drug therapy - Allergy status to [...] with renal and ureteral calculous obstruction - snf (current) use of aspirin - Nicotine dependence, unspecified, uncomplicated - Essential (primary) hypertension - Other mcc (current) drug therapy - Allergy status to narcotic agent - Allergy status to penicillin - Allergy status to other drugs, medicaments and biological substances - Allergy status to narcotic agent - Allergy status to other drugs, medicaments and biological substances - Pure hypercholesterolemia, unspecified - Allergy status to other antibiotic agents - Unspecified abdominal pain 09/13/2020 21:00 [facility] [place] TYPE: Emergency DIAGNOSES: - Myalgia, other site - FALL 08/23/2020 19:42 [facility] [place] TYPE: Emergency COMPLAINT: - DIARRHEA/NAUSEA DIAGNOSES: - Allergy status to other drugs, medicaments and biological substances - Irritable bowel syndrome with diarrhea - Allergy status to narcotic agent - Allergy status to penicillin - Diarrhea, unspecified - Other mcc (current) drug therapy - Allergy status to other antibiotic agents - Pure hypercholesterolemia, unspecified - Nicotine dependence, unspecified, uncomplicated - Allergy status to narcotic agent - Allergy status to other antibiotic agents - Allergy status to other drugs, medicaments and biological substances - Essential (primary) hypertension - snf (current) use of aspirin 08/06/2020 21:29 [facility] [place] TYPE: Emergency COMPLAINT: - BLOOD PRESSURE ISSUE/DIZZINESS DIAGNOSES: - Pure hypercholesterolemia, unspecified - Syncope and collapse - Allergy status to penicillin - Allergy status to narcotic agent - Other intermediate project manager (current) drug therapy - Shortness of breath - Allergy status to other drugs, medicaments and biological substances - Essential (primary) hypertension - snf (current) use of aspirin - Nicotine dependence, unspecified, uncomplicated INPATIENT VISIT TRACKING (12 MO.) No inpatient visits to display in this time frame [email or web address]
== END 2021-07-21 23:29 | disposition home or self-care (01) ==
LOC: ED 22:57
DX: U07.1 COVID-19 (principal); I10 Essential (primary) hypertension; E78.00 Pure hypercholesterolemia, unspecified; Z87.891 Personal history of nicotine dependence; Z88.0 Allergy status to penicillin; Z88.5 Allergy status to narcotic agent; Z88.8 Allergy status to other drugs, medicaments and biological substances; Z88.1 Allergy status to other antibiotic agents; Z79.899 Other long term (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; Z79.82 Long term (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
CPT/HCPCS: 99284-25

== ENCOUNTER 2021-08-03 23:41 | Emergency (ER) | payer MEDICARE ==
[~2021-08-03] VITALS: Ht 193 cm; Wt 111.3 kg
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
== END 2021-08-04 00:27 | disposition home or self-care (01) ==
LOC: ED 23:41
DX: R05 Cough (principal); R53.83 Other fatigue; Z86.16 Personal history of COVID-19; I10 Essential (primary) hypertension; E78.00 Pure hypercholesterolemia, unspecified; E16.2 Hypoglycemia, unspecified; Z87.891 Personal history of nicotine dependence; Z88.0 Allergy status to penicillin; Z88.5 Allergy status to narcotic agent; Z88.1 Allergy status to other antibiotic agents; Z88.2 Allergy status to sulfonamides; Z79.899 Other long term (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
CPT/HCPCS: 99284

== ENCOUNTER 2021-08-10 20:08 | Emergency (ER) | payer MEDICARE ==
[~2021-08-10] VITALS: Ht 193 cm; Wt 111.3 kg
--- OUTSIDE RECORDS SUMMARY | 2021-08-10 20:10 | XMS ---
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 Elopement at [facility] 06/03/2020 13:29 - Other Details: PATIENT LWBS. Elopement at [facility] 04/15/2020 20:03 - Other Details: PATIENT LWBS. CRITERIA MET - [facility] - 2 Visits in 30 Days - [facility] - 3 Facilities in 90 Days - [facility] - Has Care Guidelines - 6 ED Visits in 6 Months - PDMP - Group Notification CARE PROVIDERS TOO MORALES Specialist 09/05/2019-Current MD Cr PHONE: Unknown Joseline has no Care Guidelines for this patient. Care History Medical/Surgical 08/04/2021 [facility] Care Recommendation: - USE EXTREME CAUTION IN GIVING NARCOTICS. - Avoid Discharge Narcotic prescriptions if at all possible. Physician discretion. 08/04/2021 [facility] CHW AND CVT RN MAYE- HAVE BEEN IN CONTACT WITH PATIENT MULTIPLE TIMES. CVT RN MAYE HAS EDUCATED PATIENT REPEATEDLY ABOUT ED UTILIZATION. PATIENT DOES HAVE A PCP AND FOLLOWS UP WITH PCP. PATIENT INSISTS ON BEING SEEN IN THE ED. PLEASE RE-EDUCATE PATIENT ABOUT ED UTILIZATION IF PATIENT IS SEEN FOR NON EMERGENT NEEDS.- PHYSICIAN DISCRETION. 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 - W PROVIDED DR COSTA WITH DR BUTT CONTACT INFORMATION-THEY HAVE ACCESS TO [facility] RECORDS AND WERE ABLE TO PULL UP PATIENT PAST VISIT WITH DR BUTT. - GOING FORWARD DR COSTA WOULD LIKE ED RECORDS SENT TO THE OFFICE [phone]. THEY WILL WORK WITH DR BUTT AND COMMUNICATE ON PATIENT CHRONIC CONDITION. E.D. VISIT COUNT (12 MO.) 3 [facility] 1 Located Within [facility] 1 [facility] 16 [facility] TOTAL 21 NOTE: Visits indicate total known visits. ED/UCC VISIT TRACKING (12 MO.) 08/10/2021 20:08 [facility] [place] TYPE: Emergency COMPLAINT: - FEVER,CHEST PRESSURE 08/03/2021 23:42 [facility] [place] TYPE: Emergency COMPLAINT: - SHORTNESS OF BREATH, COUGH DIAGNOSES: - Allergy status to penicillin - Allergy status to narcotic agent - Allergy status to sulfonamides - Other fatigue - Pure hypercholesterolemia, unspecified - Essential (primary) hypertension - Other detention (current) drug therapy - Allergy status to other antibiotic agents - Hypoglycemia, unspecified - Personal history of nicotine dependence - Cough 07/28/2021 13:28 [facility] [place] TYPE: Emergency DIAGNOSES: - COVID-19 - COVID+ COUGH FEVER 07/21/2021 22:58 [facility] [place] TYPE: Emergency COMPLAINT: - VOMITING, LUNG PROBLEM DIAGNOSES: - Pure hypercholesterolemia, unspecified - Other detention (current) drug therapy - Essential (primary) hypertension - COVID-19 - Fever, unspecified - Allergy status to other antibiotic agents - senior care (current) use of aspirin - Allergy status to penicillin - Allergy status to other drugs, medicaments and biological substances - Allergy status to narcotic agent - Personal history of nicotine dependence 07/18/2021 19:07 [facility] [place] TYPE: Emergency DIAGNOSES: - COVID-19 - +COVID; SOB 07/17/2021 13:45 [facility] [place] TYPE: Emergency COMPLAINT: - FLU SYMPTOMS DIAGNOSES: - 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 senior care (current) use of aspirin 05/23/2021 15:26 [facility] [place] TYPE: Emergency COMPLAINT: - SOB DIAGNOSES: - Allergy status to other drugs, medicaments and biological substances - Other chest pain - Essential (primary) hypertension - Allergy status to penicillin - Allergy status to narcotic agent - Pure hypercholesterolemia, unspecified - Other detention (current) drug therapy - Personal history of nicotine dependence 04/28/2021 12:28 [facility] [place] TYPE: Emergency COMPLAINT: - IBS ISSUE DIAGNOSES: - Other detention (current) drug therapy - Allergy status to penicillin - Personal history of nicotine dependence - Allergy status to narcotic agent - Essential (primary) hypertension - senior care (current) use of aspirin - Diarrhea, unspecified - Allergy status to other drugs, medicaments and biological substances - Pure hypercholesterolemia, unspecified 04/11/2021 15:19 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 - Diarrhea, unspecified 03/22/2021 18:18 [facility] [place] TYPE: Emergency COMPLAINT: - SHORTNESS OF BREATH 2021 19:52 [facility] [place] TYPE: Emergency COMPLAINT: - FALL, HEAD INJURY DIAGNOSES: - Personal history of nicotine dependence - Allergy status to other antibiotic agents - 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 - Pure hypercholesterolemia, unspecified - Allergy status to penicillin - Allergy status to narcotic agent - Allergy status to other drugs, medicaments and biological substances - Headache, unspecified - Unspecified intracranial injury with loss of consciousness of unspecified duration, initial encounter - Essential (primary) hypertension - Other fall from one level to another, initial encounter - 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 01/23/2021 08:56 [facility] [place] TYPE: Emergency COMPLAINT: - BLOOD PRESSURE PROBLEM, NAUSEA DIAGNOSES: - 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 - Personal history of nicotine dependence - Allergy status to other antibiotic agents - Allergy status to narcotic agent - Allergy status to other drugs, medicaments and biological substances - senior care (current) use of aspirin - Insomnia, unspecified [...] initial encounter - Essential (primary) hypertension - senior care (current) use of aspirin - Other detention (current) drug therapy 12/28/2020 18:32 [facility] [place] TYPE: Emergency COMPLAINT: - BLOOD PRESSURE PROBLEM DIAGNOSES: - Nicotine dependence, unspecified, uncomplicated - 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 - Essential (primary) hypertension - Allergy status to other drugs, medicaments and biological substances - Pure hypercholesterolemia, unspecified - Allergy status to penicillin - Allergy status to narcotic agent - Shortness of breath - Allergy status to other antibiotic agents - 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 12[facility]17/2020 [facility] DIAGNOSES: - Palpitations - Ventricular premature depolarization - Chest Pain - Generalized anxiety disorder - Shortness of Breath - chest pain/ d/ sob / heart rate 11/13/2020 09:58 [facility] [place] TYPE: Emergency COMPLAINT: - FALL, ABD PAIN DIAGNOSES: - Essential (primary) hypertension - Contusion of abdominal wall, initial encounter - 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 - [...] other drugs, medicaments and biological substances - senior care (current) use of aspirin 10/04/2020 13:20 [facility] [place] TYPE: Emergency COMPLAINT: - URINATING BLOOD DIAGNOSES: - Allergy status to penicillin - Nicotine dependence, unspecified, uncomplicated - 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 - Hematuria, unspecified - 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 - [...] with renal and ureteral calculous obstruction - senior care (current) use of aspirin - Nicotine dependence, unspecified, uncomplicated - Essential (primary) hypertension - 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 - Allergy status to narcotic agent - Allergy status to penicillin - Allergy status to other drugs, medicaments and biological substances - Allergy status to narcotic agent - Allergy status to other drugs, medicaments and biological substances - Pure hypercholesterolemia, unspecified - Allergy status to other antibiotic agents - Unspecified abdominal pain 09/13/2020 21:00 [facility] [place] TYPE: Emergency DIAGNOSES: - Myalgia, other site - FALL Plus 1 More Visit INPATIENT VISIT TRACKING (12 MO.) No inpatient visits to display in this time frame [email or web address]
--- NOTE | 2021-08-12 02:21 | EKG ---
[facility] [address] [place] [address] Signed Atrial-paced rhythm with prolonged AV conduction Abnormal ECG When compared with ECG of 23-MAY-2021 15:29, No significant change was found Confirmed by NATALEE CEJA MD ([id number]) on 08/12/2021 2:21:22 AM Electronically Signed By: NATALEE CEJA MD 08/12/21220 PATIENT NAME: PINA GAY SARAH Electrocardiogram DATE OF : 58 PHYSICIAN: NATALEE CEJA MD REPORT #: [id number] REPORT IS CONFIDENTIAL AND NOT TO BE RELEASED WITHOUT AUTHORIZATION
== END 2021-08-10 22:41 | disposition left against medical advice (07) ==
LOC: ED 20:08
DX: Z53.21 Procedure and treatment not carried out due to patient leaving prior to being seen by health care provider (principal)
CPT/HCPCS: 93005; 93010

== ENCOUNTER 2021-11-09 16:21 | Emergency (ER) | payer OTHER, MEDICARE ==
[~2021-11-09] VITALS: Ht 193 cm; Wt 122.6 kg
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
== END 2021-11-09 18:35 | disposition home or self-care (01) ==
LOC: ED 16:21
DX: S09.90XA Unspecified injury of head, initial encounter (principal); S13.9XXA Sprain of joints and ligaments of unspecified parts of neck, initial encounter; Y04.8XXA Assault by other bodily force, initial encounter; I10 Essential (primary) hypertension; E78.00 Pure hypercholesterolemia, unspecified; Z87.891 Personal history of nicotine dependence; Z88.0 Allergy status to penicillin; Z88.8 Allergy status to other drugs, medicaments and biological substances; Z88.1 Allergy status to other antibiotic agents; Z88.5 Allergy status to narcotic agent; Z79.899 Other long term (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; Z79.82 Long term (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
CPT/HCPCS: 70450; 72125; 99284-25

== ENCOUNTER 2022-10-29 05:26 | Emergency (ER) | payer MEDICARE ==
[~2022-10-29] VITALS: Ht 193 cm; Wt 124.0 kg
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
[2022-10-29] MEDS ORDERED: CYCLOBENZAPRINE10 MG PO (07:25)
[2022-10-29] MEDS ORDERED: ONDANSETRON ODT8 MG PO (07:25)
== END 2022-10-29 07:44 | disposition home or self-care (01) ==
LOC: ED 05:26
DX: A08.4 Viral intestinal infection, unspecified (principal); I10 Essential (primary) hypertension; E78.00 Pure hypercholesterolemia, unspecified; Z87.891 Personal history of nicotine dependence; Z88.0 Allergy status to penicillin; Z88.5 Allergy status to narcotic agent; Z88.8 Allergy status to other drugs, medicaments and biological substances; Z79.899 Other long term (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; Z79.82 Long term (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
CPT/HCPCS: 36415; 80053; 85025; 96361; 96374; 96375; 99284-25; J1885; J2405; J7121

== ENCOUNTER 2022-11-02 02:23 | Emergency (ER) | payer MEDICARE ==
[~2022-11-02] VITALS: Ht 193 cm; Wt 124.0 kg
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
[2022-11-02] MEDS ORDERED: CYCLOBENZAPRINE10 MG PO (03:39)
[2022-11-02] MEDS ORDERED: LIDOCAINE HCL100 ML MT (03:39)
== END 2022-11-02 04:00 | disposition home or self-care (01) ==
LOC: ED 02:23
DX: U07.1 COVID-19 (principal); I10 Essential (primary) hypertension; E78.00 Pure hypercholesterolemia, unspecified; Z79.82 Long term (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; Z79.899 Other long term (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; Z87.891 Personal history of nicotine dependence; Z88.0 Allergy status to penicillin; Z88.5 Allergy status to narcotic agent; Z88.8 Allergy status to other drugs, medicaments and biological substances
CPT/HCPCS: 70360; 96372; 99283-25; J1885; J3360

== ENCOUNTER 2022-12-13 19:41 | Emergency (ER) | payer MEDICARE ==
[~2022-12-13] VITALS: Ht 193 cm; Wt 138.5 kg
[~2022-12-13 19:41] MED LIST changes: +LIDOCAINE HCL100 ML MT
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
[2022-12-13] MEDS ORDERED: MUPIROCIN22 GM (19:52)
[2022-12-13] MEDS ORDERED: TRAMADOL HCL50 MG PO (19:52)
[2022-12-13] MEDS ORDERED: TOPIRAMATE25 MG (19:52)
[2022-12-13] MEDS ORDERED: BUTALB-ACETAMI1 EACH PO (20:40)
== END 2022-12-13 20:48 | disposition home or self-care (01) ==
LOC: ED 19:41
DX: G43.909 Migraine, unspecified, not intractable, without status migrainosus (principal); I10 Essential (primary) hypertension; E78.00 Pure hypercholesterolemia, unspecified; I71.40 Abdominal aortic aneurysm, without rupture, unspecified; K51.90 Ulcerative colitis, unspecified, without complications; Z95.5 Presence of coronary angioplasty implant and graft; Z87.891 Personal history of nicotine dependence; Z88.0 Allergy status to penicillin; Z88.5 Allergy status to narcotic agent; Z88.8 Allergy status to other drugs, medicaments and biological substances; Z95.0 Presence of cardiac pacemaker; Z79.899 Other long term (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
CPT/HCPCS: 96372; 99283; J1885; J3360

== ENCOUNTER 2023-07-23 15:28 | Emergency (ER) | payer MEDICARE ==
[~2023-07-23] VITALS: Ht 193 cm; Wt 119.8 kg
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
--- OUTSIDE RECORDS SUMMARY | ~2023-07-23 | XMS | Continuity of Care Document ---
Demographics + + + | Address | [address] | | | [place] [address] | + + + | Preferred Language | Unknown | + + + | Marital Status | | + + + | Jew Affiliation | Unknown | + + + | Race | White | + + + | Ethnic Group | Unknown | + + + Author + + + | Author | [facility] | + + + | Organization | [facility] | + + + | Address | [address] | | | [place] [address] | + + + | Phone | | + + + Care Team Providers + + + + | Care Fire Official Name | Role | Phone | + [...] INTRACTABLE, WITHOUT STATUS | | | | DC | | + + + + | [...] + + | 2022-12-13 19:42 | OTHER CROSS CUT SAWYER (CURRENT) | [facility] | | | DRUG [...] + + + | 2023-06-19 16:01 | PENITENTIARY (CURRENT) USE OF | [facility] | | | ASPIRIN | | + + + + | 2023-06-19 16:01 | OTHER CROSS CUT SAWYER (CURRENT) | [facility] | | | DRUG [...]
[~2023-07-23 15:28] MED LIST changes: +BUTALB-ACETAMI1 EACH PO; +CITALOPRAM HBR40 MG PO; +MUPIROCIN22 GM; +TOPIRAMATE25 MG; +TRAMADOL HCL50 MG PO
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
[2023-07-23] MEDS ORDERED: BENZONATATE100 MG PO (18:49)
[2023-07-23] MEDS ORDERED: IPRAT-ALBUT 0.5-3 ML INH (18:50)
[2023-07-23 19:02] VITALS: BP 127/94
== END 2023-07-23 19:04 | disposition home or self-care (01) ==
LOC: ED 15:28
DX: J20.9 Acute bronchitis, unspecified (principal); J45.909 Unspecified asthma, uncomplicated; I10 Essential (primary) hypertension; E78.00 Pure hypercholesterolemia, unspecified; Z88.0 Allergy status to penicillin; Z88.5 Allergy status to narcotic agent; Z88.8 Allergy status to other drugs, medicaments and biological substances; Z79.899 Other long term (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; Z79.82 Long term (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; Z86.16 Personal history of COVID-19; Z87.891 Personal history of nicotine dependence
CPT/HCPCS: 71046; 94640; 99285-25

== ENCOUNTER 2024-03-31 17:38 | Emergency (ER) | payer MEDICARE ==
[~2024-03-31] VITALS: Ht 193 cm; Wt 131.8 kg
[~2024-03-31 17:38] MED LIST changes: +BENZONATATE100 MG PO; +GRALISE900 MG PO; +IPRAT-ALBUT 0.5-3 ML INH; +METHYLPREDNISOLO4 M1 PO; +METOCLOPRAMIDE10 MG PO; +RIZATRIPTAN10 MG PO; +SUMATRIPTAN SUC50 MG PO; +TOPIRAMATE50 MG PO; +TRAZODONE HCL50 MG PO; +ZANAFLEX4 MG PO
[2024-03-31] MEDS ORDERED: ALBUTEROL/IPRATROPIUM 3 ML NEB INH PRN (18:15)
[2024-03-31 18:34] LABS: BASOPHILS 2.1 % (0-2); EOSINOPHILS 3.2 % (0-6); HEMOGLOBIN 15.9 g/dL (12.0-18.0); LYMPHOCYTES 18.8 % (24-44); MCH 33.4 (27-36); MCHC 33.8 g/dl (30-36); MCV 98.7 fl (81-99); NEUTROPHILS 66.9 % (39-80); PLATELET COUNT 167 K/uL (140-440); RBC 4.76 M/ul (4.3-5.7); RDW 13.5 (10.5-15.0)
[2024-03-31 18:56] LABS: ALBUMIN 3.6 g/dL (3.4-5.0); ALBUMIN/GLOBULIN RATIO 1.09 (1.1-2.4); ANION GAP 12.6 (7-21); BILIRUBIN, TOTAL 0.5 ng/dL (0.2-1.0); BUN/CREATININE RATIO 23.42 (6.0-28.6); CALCIUM 8.8 mg/dL (8.5-10.1); CREATININE, SERUM 1.11 mg/dL (0.70-1.30); POTASSIUM 3.6 mmol/L (3.5-5.1); PROTEIN, TOTAL 6.9 g/dL (6.4-8.2)
[2024-03-31] MEDS ORDERED: MECLIZINE HCL 25 MG TAB PO ONE (20:30)
[2024-03-31] MEDS ORDERED: MECLIZINE HCL25 MG PO (21:45)
[2024-03-31 22:07] VITALS: BP 128/90
--- NOTE | 2024-04-01 18:30 | EKG ---
[facility] [address] [place] [address] Signed Normal sinus rhythm Normal ECG When compared with ECG of 05-MAR-2024 23:19, No significant change was found Confirmed by WALLACE FAUSTIN MD ([id number]) on 04/01/2024 6:31:19 PM Electronically Signed By: WALLACE FAUSTIN 04/01/240 PATIENT NAME: PINA GAY SARAH Electrocardiogram DATE OF : 58 PHYSICIAN: WALLACE FAUSTIN REPORT #: [id number] REPORT IS CONFIDENTIAL AND NOT TO BE RELEASED WITHOUT AUTHORIZATION
== END 2024-03-31 22:09 | disposition home or self-care (01) ==
LOC: ED 17:38
PROVIDERS: Emergency Medicine
DX: R42 Dizziness and giddiness (principal); I11.0 Hypertensive heart disease with heart failure; G43.909 Migraine, unspecified, not intractable, without status migrainosus; I50.9 Heart failure, unspecified; Z87.891 Personal history of nicotine dependence; Z88.0 Allergy status to penicillin; Z88.5 Allergy status to narcotic agent; Z88.8 Allergy status to other drugs, medicaments and biological substances; Z88.1 Allergy status to other antibiotic agents; Z79.899 Other long term (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; Z79.82 Long term (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
CPT/HCPCS: 36415; 70450; 71045; 80053; 83735; 83880; 84484; 85025; 93005; 93010; 94640; 99285-25; A9270

== ENCOUNTER 2024-05-02 18:10 | Emergency (ER) | payer OTHER, MEDICARE ==
[~2024-05-02] VITALS: Ht 193 cm; Wt 128.0 kg
[~2024-05-02 18:10] MED LIST changes: +MECLIZINE HCL25 MG PO
[2024-05-02] MEDS ORDERED: TORSEMIDE20 MG PO (18:32)
[2024-05-02] MEDS ORDERED: POTASSIUM CHLO20 ME1 PO (18:32)
[2024-05-02] MEDS ORDERED: BUDESONIDE0.5 MG/2 M INH (18:33)
[2024-05-02] MEDS ORDERED: BUSPIRONE HCL10 MG PO (18:34)
[2024-05-02] MEDS ORDERED: KETOROLAC TROMETHAMINE 15 MG/ML VIAL IM ONE (18:45)
[2024-05-02 19:19] LABS: BILIRUBIN, URINE NEGATIVE (negative); BLOOD/HGB, URINE NEGATIVE (Negative); KETONE, URINE NEGATIVE (Negative); LEUK ESTERASE, URINE NEGATIVE (negative); NITRITE, URINE NEGATIVE (negative)
[2024-05-02 19:25] LABS: BACTERIA, URINE NONE SEEN /hpf (negative); CASTS, URINE NONE SEEN \\lpf; COLLECTION TYPE, URINE CLEAN CATCH; CRYSTALS, URINE NONE SEEN (0-1+); EPITHELIAL CELLS, URINE SQUAMOUS 1+ /lpf (0-1+); RED BLOOD CELLS, URINE 0-1 /hpf (0-5); REFLEX CULTURE, URINE No (No)
[2024-05-02 20:14] LABS: BASOPHILS 0.8 % (0-2); HEMATOCRIT 50.6 % (35.0-50.0); HEMOGLOBIN 17.9 g/dL (12.0-18.0); LYMPHOCYTES 24.7 % (24-44); MCHC 35.4 g/dl (30-36); MCV 96.1 fl (81-99); MONOCYTES 14.2 % (0-12); NEUTROPHILS 59.3 % (39-80); PLATELET COUNT 177 K/uL (140-440); RBC 5.27 M/ul (4.3-5.7); RDW 13.2 (10.5-15.0)
[2024-05-02 20:28] LABS: ALBUMIN 3.8 g/dL (3.4-5.0); ALBUMIN/GLOBULIN RATIO 1.12 (1.1-2.4); ANION GAP 10.1 (7-21); BILIRUBIN, TOTAL 0.9 ng/dL (0.2-1.0); BUN/CREATININE RATIO 18.85 (6.0-28.6); CALCIUM 9.1 mg/dL (8.5-10.1); CREATININE, SERUM 1.22 mg/dL (0.70-1.30); POTASSIUM 3.1 mmol/L (3.5-5.1); PROTEIN, TOTAL 7.2 g/dL (6.4-8.2)
[2024-05-02] MEDS ORDERED: HYDROCODONE BIT/ACETAMINOPHEN 5/325 MG 1 TAB HOME.PACK PO ONE (20:45)
[2024-05-02] MEDS ORDERED: HYDROCODON-ACE1 EA10 PO (20:47)
[2024-05-02 21:02] VITALS: BP 135/102
== END 2024-05-02 21:02 | disposition home or self-care (01) ==
LOC: ED 18:10
PROVIDERS: Emergency Medicine; Family Medicine
DX: M54.50 Low back pain, unspecified (principal); N20.0 Calculus of kidney; I11.0 Hypertensive heart disease with heart failure; I50.9 Heart failure, unspecified; W01.0XXA Fall on same level from slipping, tripping and stumbling without subsequent striking against object, initial encounter; Z95.0 Presence of cardiac pacemaker; Z95.5 Presence of coronary angioplasty implant and graft; Z96.611 Presence of right artificial shoulder joint; Z88.0 Allergy status to penicillin; Z88.5 Allergy status to narcotic agent; Z88.8 Allergy status to other drugs, medicaments and biological substances; Z79.82 Long term (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; Z79.899 Other long term (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
CPT/HCPCS: 36415; 74176; 80053; 81001; 85025; A9270; J1885

== ENCOUNTER 2024-06-16 19:41 | Emergency (ER) | payer MEDICARE ==
[~2024-06-16] VITALS: Ht 193 cm; Wt 125.0 kg
[~2024-06-16 19:41] MED LIST changes: +BUDESONIDE0.5 MG/2 M INH; +BUSPIRONE HCL10 MG PO; +HYDROCODON-ACE1 EA10 PO; +POTASSIUM CHLO20 ME1 PO; +TORSEMIDE20 MG PO
[2024-06-16] MEDS ORDERED: NITROGLYCERIN PACKET TOP ONE (20:45)
[2024-06-16] MEDS ORDERED: ASPIRIN 81 MG CHEW PO ONE (20:45)
[2024-06-16 21:30] VITALS: BP 00/00
--- NOTE | 2024-06-17 22:06 | EKG ---
[facility] [address] [facility] [address] [place] [address] Signed Atrial-paced rhythm Abnormal ECG When compared with ECG of 10-APR-2024 22:39, Electronic atrial pacemaker has replaced Sinus rhythm Confirmed by Parveen Mohr MD () on 06/17/2024 10:06:30 PM Electronically Signed By: PARVEEN MOHR MD 06/17/24 220 PATIENT NAME: PINA GAY SARAH Electrocardiogram DATE OF : 58 PHYSICIAN: PARVEEN MOHR MD REPORT #: [id number] REPORT IS CONFIDENTIAL AND NOT TO BE RELEASED WITHOUT AUTHORIZATION
== END 2024-06-16 21:30 | disposition other institution, planned readmission (95) ==
LOC: ED 19:41
DX: R07.9 Chest pain, unspecified (principal); I25.2 Old myocardial infarction; J44.9 Chronic obstructive pulmonary disease, unspecified; I11.0 Hypertensive heart disease with heart failure; I50.9 Heart failure, unspecified; Z95.0 Presence of cardiac pacemaker; Z87.891 Personal history of nicotine dependence; Z88.0 Allergy status to penicillin; Z88.5 Allergy status to narcotic agent; Z88.1 Allergy status to other antibiotic agents; Z79.899 Other long term (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; Z79.82 Long term (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; Z53.21 Procedure and treatment not carried out due to patient leaving prior to being seen by health care provider
CPT/HCPCS: 71045; 80053; 83735; 84484; 85025; 93005; 93010; A9270

== ENCOUNTER 2024-07-14 15:00 | Emergency (ER) | payer OTHER, MEDICARE ==
[~2024-07-14] VITALS: Ht 193 cm; Wt 127.4 kg
[2024-07-14] MEDS ORDERED: KETOROLAC TROMETHAMINE 60 MG/2 ML VIAL IM ONE (16:00)
[2024-07-14] MEDS ORDERED: KETOROLAC TROME10 MG PO (17:01)
[2024-07-14 17:13] VITALS: BP 117/94
== END 2024-07-14 17:16 | disposition home or self-care (01) ==
LOC: ED 15:00
DX: S00.01XA Abrasion of scalp, initial encounter (principal); I11.0 Hypertensive heart disease with heart failure; I50.9 Heart failure, unspecified; W01.0XXA Fall on same level from slipping, tripping and stumbling without subsequent striking against object, initial encounter; Z95.0 Presence of cardiac pacemaker; Z87.891 Personal history of nicotine dependence; Z96.611 Presence of right artificial shoulder joint; Z95.5 Presence of coronary angioplasty implant and graft; Z88.0 Allergy status to penicillin; Z88.5 Allergy status to narcotic agent; Z88.8 Allergy status to other drugs, medicaments and biological substances; Z79.82 Long term (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; Z79.899 Other long term (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
CPT/HCPCS: 70450; 72125; 96372; 99283-25; J1885

== ENCOUNTER 2024-09-02 12:28 | Emergency (ER) | payer MEDICARE, OTHER ==
[~2024-09-02] VITALS: Ht 193 cm; Wt 118.0 kg
[~2024-09-02 12:28] MED LIST changes: +KETOROLAC TROME10 MG PO
[2024-09-02] MEDS ORDERED: LIDOCAINE HCL 4% 1 EACH PATCH TD ONE (13:15)
[2024-09-02] MEDS ORDERED: diazePAM 10 MG/2 ML SYR IV ONE (13:15)
[2024-09-02] MEDS ORDERED: KETOROLAC TROMETHAMINE 30 MG/ML VIAL IV ONE (13:15)
[2024-09-02] MEDS ORDERED: KETOROLAC TROMETHAMINE 60 MG/2 ML VIAL IM ONE (14:00)
[2024-09-02] MEDS ORDERED: diazePAM 10 MG/2 ML SYR IM ONE (14:00)
[2024-09-02] MEDS ORDERED: HYDROmorphone HCL 1 MG/ML SYR IV ONE (15:00)
[2024-09-02] MEDS ORDERED: ondansetron HCL 4 MG/2 ML VIAL IV ONE (15:00)
[2024-09-02] MEDS ORDERED: CYCLOBENZAPRINE10 MG PO (16:07)
[2024-09-02] MEDS ORDERED: PERCOCET 5-3251 EACH PO (16:07)
[2024-09-02 16:18] VITALS: BP 103/68
[2024-09-02] MEDS ORDERED: LIDOCAINE PATCH REMOVAL 1 EA TD SCH (21:00)
== END 2024-09-02 16:18 | disposition home or self-care (01) ==
LOC: ED 12:28
DX: M51.362 Other intervertebral disc degeneration, lumbar region with discogenic back pain and lower extremity pain (principal); I11.0 Hypertensive heart disease with heart failure; I50.9 Heart failure, unspecified; E78.00 Pure hypercholesterolemia, unspecified; G43.909 Migraine, unspecified, not intractable, without status migrainosus; Z95.0 Presence of cardiac pacemaker; K58.9 Irritable bowel syndrome, unspecified; Z87.891 Personal history of nicotine dependence; Z95.5 Presence of coronary angioplasty implant and graft; Z88.0 Allergy status to penicillin; Z88.1 Allergy status to other antibiotic agents; Z88.5 Allergy status to narcotic agent; Z88.8 Allergy status to other drugs, medicaments and biological substances; Z79.82 Long term (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; Z79.899 Other long term (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
CPT/HCPCS: 96374; 96375; 99283-25; A9270; J1885; J2405; J3360

== ENCOUNTER 2024-09-27 14:32 | Emergency (ER) | payer MEDICARE, OTHER ==
[~2024-09-27] VITALS: Ht 193 cm; Wt 125.5 kg
[2024-09-27] MEDS ORDERED: HYDROmorphone HCL 1 MG/ML SYR IM ONE (17:30)
[2024-09-27 18:45] VITALS: BP 135/94
== END 2024-09-27 18:45 | disposition home or self-care (01) ==
LOC: ED 14:32
DX: M25.552 Pain in left hip (principal); I11.0 Hypertensive heart disease with heart failure; I50.9 Heart failure, unspecified; E78.00 Pure hypercholesterolemia, unspecified; G43.909 Migraine, unspecified, not intractable, without status migrainosus; I71.21 Aneurysm of the ascending aorta, without rupture; Z87.891 Personal history of nicotine dependence; Z95.5 Presence of coronary angioplasty implant and graft; Z95.0 Presence of cardiac pacemaker; Z88.0 Allergy status to penicillin; Z88.5 Allergy status to narcotic agent; Z88.1 Allergy status to other antibiotic agents; Z88.8 Allergy status to other drugs, medicaments and biological substances; Z79.82 Long term (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; Z79.899 Other long term (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; X50.1XXA Overexertion from prolonged static or awkward postures, initial encounter
CPT/HCPCS: 73502; 96372; 99283-25; J1171

== ENCOUNTER 2024-11-06 04:13 | Emergency (ER) | payer MEDICARE, OTHER ==
[~2024-11-06] VITALS: Ht 193 cm; Wt 130.0 kg
[2024-11-06 04:33] VITALS: BP 161/98
== END 2024-11-06 06:20 | disposition home or self-care (01) ==
LOC: ED 04:13
DX: L76.34 Postprocedural seroma of skin and subcutaneous tissue following other procedure (principal); I11.0 Hypertensive heart disease with heart failure; I50.9 Heart failure, unspecified; E78.00 Pure hypercholesterolemia, unspecified; G43.909 Migraine, unspecified, not intractable, without status migrainosus; Z96.642 Presence of left artificial hip joint; Z95.0 Presence of cardiac pacemaker; Z87.891 Personal history of nicotine dependence; Z95.5 Presence of coronary angioplasty implant and graft; Z88.0 Allergy status to penicillin; Z88.5 Allergy status to narcotic agent; Z88.1 Allergy status to other antibiotic agents; Z88.8 Allergy status to other drugs, medicaments and biological substances; Z79.82 Long term (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; Z79.899 Other long term (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
CPT/HCPCS: 99283

== ENCOUNTER 2024-11-13 16:13 | Emergency (ER) | payer MEDICARE, OTHER ==
[~2024-11-13] VITALS: Ht 193 cm; Wt 125.0 kg
[2024-11-13] MEDS ORDERED: ASPIRIN325 MG PO (18:43)
[2024-11-13 20:35] VITALS: BP 130/98
== END 2024-11-13 20:34 | disposition home or self-care (01) ==
LOC: ED 16:13
DX: M79.89 Other specified soft tissue disorders (principal); E78.00 Pure hypercholesterolemia, unspecified; I11.0 Hypertensive heart disease with heart failure; I50.9 Heart failure, unspecified; G43.909 Migraine, unspecified, not intractable, without status migrainosus; Z96.642 Presence of left artificial hip joint; Z95.0 Presence of cardiac pacemaker; Z87.891 Personal history of nicotine dependence; Z88.0 Allergy status to penicillin; Z88.1 Allergy status to other antibiotic agents; Z88.8 Allergy status to other drugs, medicaments and biological substances; Z79.82 Long term (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; Z79.899 Other long term (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
CPT/HCPCS: 93971; 99283-25

== ENCOUNTER 2025-02-21 16:50 | Emergency (ER) | payer MEDICARE, OTHER ==
[~2025-02-21] VITALS: Ht 193 cm; Wt 113.8 kg
[~2025-02-21 16:50] MED LIST changes: +ASPIRIN325 MG PO
[2025-02-21] MEDS ORDERED: PANTOPRAZOLE SO40 MG (17:10)
[2025-02-21 18:33] LABS: BASOPHILS 0.6 % (0-2); EOSINOPHILS 0.7 % (0-6); HEMATOCRIT 48.7 % (35.0-50.0); HEMOGLOBIN 17.3 g/dL (12.0-18.0); LYMPHOCYTES 27.8 % (24-44); MCH 32.8 (27-36); MCHC 35.6 g/dl (30-36); MCV 92.3 fl (81-99); MONOCYTES 10.8 % (0-12); NEUTROPHILS 60.1 % (39-80); PLATELET COUNT 141 K/uL (140-440); RBC 5.28 M/ul (4.3-5.7); RDW 12.8 (10.5-15.0)
[2025-02-21 18:52] LABS: ALBUMIN 3.6 g/dL (3.4-5.0); ALBUMIN/GLOBULIN RATIO 1.16 (1.1-2.4); ANION GAP 10.4 (7-21); BILIRUBIN, TOTAL 0.5 mg/dL (0.2-1.0); BUN/CREATININE RATIO 28.23 (6.0-28.6); CALCIUM 9.3 mg/dL (8.5-10.1); CREATININE, SERUM 0.85 mg/dL (0.70-1.30); POTASSIUM 3.4 mmol/L (3.5-5.1); PROTEIN, TOTAL 6.7 g/dL (6.4-8.2)
[2025-02-21 19:53] LABS: ERYTHROCYTE SEDIMENTATION RATE 4
[2025-02-21] MEDS ORDERED: HYDROCODON-ACE1 EA10 PO (20:12)
[2025-02-21] MEDS ORDERED: HYDROCODONE BIT/ACETAMINOPHEN 5/325 MG 1 TAB HOME.PACK PO ONE (20:15)
[2025-02-21 20:38] VITALS: BP 157/116
== END 2025-02-21 20:35 | disposition home or self-care (01) ==
LOC: ED 16:50
PROVIDERS: Emergency Medicine
DX: D17.9 Benign lipomatous neoplasm, unspecified (principal); M25.552 Pain in left hip; I11.0 Hypertensive heart disease with heart failure; I50.9 Heart failure, unspecified; E78.00 Pure hypercholesterolemia, unspecified; Z79.82 Long term (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; Z79.899 Other long term (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; Z79.51 Long term (current) use of inhaled steroids; Z88.0 Allergy status to penicillin; Z88.5 Allergy status to narcotic agent; Z88.1 Allergy status to other antibiotic agents; Z88.8 Allergy status to other drugs, medicaments and biological substances; Z87.891 Personal history of nicotine dependence
CPT/HCPCS: 36415; 72192; 73502; 80053; 85025; 85651; 86140; 86141; 99284-25; A9270

== ENCOUNTER 2025-07-11 15:23 | Emergency (ER) | payer MEDICARE, OTHER ==
[~2025-07-11] VITALS: Ht 193 cm; Wt 113.4 kg
[~2025-07-11 15:23] MED LIST changes: +BAYER CHEWABLE81 MG PO; -LIPITOR20 MG PO; +LIPITOR80 MG PO; +ONDANSETRON ODT4 MG PO; +PANTOPRAZOLE SO40 MG
[2025-07-11] MEDS ORDERED: CEPHALEXIN500 M1 PO (15:57)
[2025-07-11 16:00] VITALS: BP 136/99
== END 2025-07-11 16:00 | disposition home or self-care (01) ==
LOC: ED 15:23
DX: S51.831A Puncture wound without foreign body of right forearm, initial encounter (principal); E78.00 Pure hypercholesterolemia, unspecified; I11.0 Hypertensive heart disease with heart failure; I50.9 Heart failure, unspecified; Z95.0 Presence of cardiac pacemaker; Z87.891 Personal history of nicotine dependence; Z88.0 Allergy status to penicillin; Z88.5 Allergy status to narcotic agent; Z88.1 Allergy status to other antibiotic agents; Z88.8 Allergy status to other drugs, medicaments and biological substances; Z79.82 Long term (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; Z79.899 Other long term (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; W20.8XXA Other cause of strike by thrown, projected or falling object, initial encounter
CPT/HCPCS: 99283

== ENCOUNTER 2025-08-20 11:40 | Emergency (ER) | payer MEDICARE, OTHER ==
[~2025-08-20] VITALS: Ht 193 cm; Wt 110.0 kg
[~2025-08-20 11:40] MED LIST changes: +CEPHALEXIN500 M1 PO
[2025-08-20] MEDS ORDERED: OXYCODONE HCL10 MG (11:59)
[2025-08-20] MEDS ORDERED: predniSONE 20 MG TAB PO ONE (13:30)
[2025-08-20 14:18] VITALS: BP 125/90
[2025-08-20] MEDS ORDERED: METHYLPREDNISOLO4 M1 PO (14:19)
== END 2025-08-20 14:25 | disposition home or self-care (01) ==
LOC: ED 11:40
DX: M54.2 Cervicalgia (principal); G89.29 Other chronic pain; I11.0 Hypertensive heart disease with heart failure; I50.9 Heart failure, unspecified; Z95.0 Presence of cardiac pacemaker; Z87.891 Personal history of nicotine dependence; Z96.611 Presence of right artificial shoulder joint; Z96.642 Presence of left artificial hip joint; Z95.5 Presence of coronary angioplasty implant and graft; Z88.0 Allergy status to penicillin; Z88.5 Allergy status to narcotic agent; Z88.8 Allergy status to other drugs, medicaments and biological substances; Z79.82 Long term (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; Z79.899 Other long term (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
CPT/HCPCS: 99283; J7512

== ENCOUNTER 2025-10-25 01:35 | Emergency (ER) | payer MEDICARE, OTHER ==
[~2025-10-25] VITALS: Ht 193 cm; Wt 98.2 kg
[~2025-10-25 01:35] MED LIST changes: +OXYCODONE HCL10 MG
[2025-10-25] MEDS ORDERED: METHYLPREDNISOLO4 M1 PO (03:08)
[2025-10-25] MEDS ORDERED: PEPCID20 MG PO (03:08)
[2025-10-25] MEDS ORDERED: predniSONE 20 MG TAB PO ONE (03:15)
[2025-10-25] MEDS ORDERED: FAMOTIDINE 20 MG TAB PO ONE (03:15)
[2025-10-25] MEDS ORDERED: DILAUDID2 MG PO (03:20)
[2025-10-25 03:22] VITALS: BP 143/82
== END 2025-10-25 03:21 | disposition home or self-care (01) ==
LOC: ED 01:35
DX: K30 Functional dyspepsia (principal); R23.2 Flushing; T50.905A Adverse effect of unspecified drugs, medicaments and biological substances, initial encounter; I11.0 Hypertensive heart disease with heart failure; I50.9 Heart failure, unspecified; Z88.0 Allergy status to penicillin; Z88.5 Allergy status to narcotic agent; Z88.8 Allergy status to other drugs, medicaments and biological substances; Z79.899 Other long term (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; Z95.0 Presence of cardiac pacemaker; Z87.891 Personal history of nicotine dependence
CPT/HCPCS: 99283; J7512

== ENCOUNTER 2025-11-11 18:20 | Emergency (ER) | payer MEDICARE ==
[~2025-11-11] VITALS: Ht 193 cm; Wt 110.8 kg
[~2025-11-11 18:20] MED LIST changes: +PEPCID20 MG PO
[2025-11-11] MEDS ORDERED: ALBUTEROL/IPRATROPIUM 3 ML NEB INH PRN (19:45)
[2025-11-11 20:04] LABS: BASOPHILS 0.1 % (0.2-1.2); EOSINOPHILS 0.1 % (0.8-7.0); LYMPHOCYTES 10.7 % (21.8-53.1); MCH 33.3 PG (25.7-32.2); MCHC 35.0 g/dL (32.3-36.5); MCV 95.0 fL (79.0-92.2); MONOCYTES 10.5 % (5.3-12.2); NEUTROPHILS 78.2 % (34.0-67.9); RBC 4.60 M/uL (4.63-6.08)
[2025-11-11] MEDS ORDERED: BUDESONIDE 0.5 MG/2 ML VIAL INH ONE (20:15)
[2025-11-11 20:33] LABS: ALT (SGPT) 44.0 U/L (14-59); AST (SGOT) 18.0 U/L (15-37); GLOMERULAR FILTRATION RATE,EST 87.0 mL/min (>60); PROTEIN, TOTAL 6.8 g/dL (6.4-8.2); UREA NITROGEN 20.0 mg/dL (7-18)
[2025-11-11] MEDS ORDERED: AZITHROMYCIN 250 MG HOME.PACK PO ONE (21:00)
[2025-11-11] MEDS ORDERED: methylPREDNISolone 4 MG HOME.PACK PO ONE (21:00)
[2025-11-11] MEDS ORDERED: ALBUTEROL SULFATE 8 GM HOME.PACK INH ONE (21:00)
[2025-11-11 21:29] VITALS: BP 124/97
--- NOTE | 2025-11-12 23:26 | EKG ---
[facility] [address] [place] [address] Signed Atrial-paced rhythm Abnormal ECG When compared with ECG of 16-JUN-2024 19:40, No significant change was found Confirmed by Parveen Mohr MD () on 11/12/2025 11:26:43 PM Electronically Signed By: PARVEEN MOHR MD 11/12/25 2326 PATIENT NAME: PINA GAY Electrocardiogram DATE OF : 58 PHYSICIAN: PARVEEN MOHR MD REPORT #: [id number] REPORT IS CONFIDENTIAL AND NOT TO BE RELEASED WITHOUT AUTHORIZATION
== END 2025-11-11 21:31 | disposition home or self-care (01) ==
LOC: ED 18:20
PROVIDERS: Family Medicine
DX: J44.1 Chronic obstructive pulmonary disease with (acute) exacerbation (principal); I11.0 Hypertensive heart disease with heart failure; I50.9 Heart failure, unspecified; Z87.891 Personal history of nicotine dependence; Z88.0 Allergy status to penicillin; Z88.5 Allergy status to narcotic agent; Z79.899 Other long term (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
CPT/HCPCS: 36415; 71045; 80053; 83735; 84484; 85025; 93005; 93010; 96374; 99285-25; J2919

== ENCOUNTER 2025-11-16 10:05 | Emergency (ER) | payer MEDICARE ==
[~2025-11-16] VITALS: Ht 193 cm; Wt 106.2 kg
[2025-11-16] MEDS ORDERED: ALBUTEROL/IPRATROPIUM 3 ML NEB INH ONE (15:00)
[2025-11-16] MEDS ORDERED: BUDESONIDE 0.5 MG/2 ML VIAL INH ONE (15:15)
[2025-11-16] MEDS ORDERED: QVAR REDIHALE10.6 G1 INH (16:10)
[2025-11-16 16:23] VITALS: BP 132/106
== END 2025-11-16 16:20 | disposition home or self-care (01) ==
LOC: ED 10:05
DX: J44.1 Chronic obstructive pulmonary disease with (acute) exacerbation (principal); I11.0 Hypertensive heart disease with heart failure; I50.9 Heart failure, unspecified; E78.00 Pure hypercholesterolemia, unspecified; G43.909 Migraine, unspecified, not intractable, without status migrainosus; Z79.899 Other long term (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; Z88.0 Allergy status to penicillin; Z88.1 Allergy status to other antibiotic agents; Z88.5 Allergy status to narcotic agent; Z88.8 Allergy status to other drugs, medicaments and biological substances; Z87.891 Personal history of nicotine dependence
CPT/HCPCS: 94640; 99284